=== PATIENT | female | born 1975 | race Hispanic/Latino ===

== ENCOUNTER 2019-05-24 10:16 | Emergency (ER) | payer OTHER ==
--- OUTSIDE RECORDS SUMMARY | 2019-05-24 10:26 | XMS REPORT | Summary of Care ---
:1975 Author Organization [facility] - [facility] Address [address] [place] [address] Care Team Providers Name Role Phone Carin Abernathy MD Primary Care Provider Leslee Diamond Unavailable Unavailable Ricardo Dyer MD Unavailable Encounter Details Date Type Department Care Team Description 04/20/2019 Orders Only [facility] Doctor Unassigned, No [address] [facility] [place] [address] [address] [place] [address] Allergies Active Allergy Reactions Severity Noted Date Comments Amoxicillin Hives Medium 05/30/2015 Diphenhydramine Hcl Swelling High 04/12/2017 Benzonatate Swelling High 11/04/2016 Tightness in throat, difficulty swallowing and breathing Codeine Itching Low 10/12/2017 Meperidine Hcl Hallucinations High 05/30/2015 Ziprasidone Hcl Hives High 05/30/2015 Lorazepam Swelling High 06/27/2017 Hard to swallow Meclizine Anaphylaxis High 10/18/2016 Tomato Other - See comments Low 04/03/2018 Tomato source reportedly causes excessive sneezing. But pt still eats it. documented as of this encounter (statuses as of 04/20/2019) Medications Medication Sig Dispensed Refills Start Date End Date Status FOLIC ACID ORAL Take by mouth 0 Active daily. MULTIVIT Take by mouth. 0 Active &MINERALS/FERROUS FUM (MULTI VITAMIN ORAL) loratadine 10 mg Take 1 tablet by 30 tablet 0 10/18/2016 Active tabletIndications: mouth daily. Viral URI METHYLCELLULOSE 0 Active (FIBER THERAPY MISC) DOCUSATE SODIUM Take by mouth. 0 Active (COLACE ORAL) vitamin C with derrell Take 1,000 mg by 0 Active hips (VITAMIN C) mouth daily. 1,000 mg tablet cholecalciferol, Take 1,000 Units 0 Active vitamin D3, (VITAMIN by mouth daily. D3) 1,000 unit tablet OMEPRAZOLE (PRILOSEC Take by mouth. 0 Active ORAL) coQ10, ubiquinol, 100 Take 1 capsule by 30 capsule 11 10/11/2017 Active mg CapIndications: mouth daily. Back muscle spasm, Right groin pain, Medication monitoring encounter, On statin therapy acetaminophen 650 mg Take 1 tablet by 90 tablet 5 11/04/2017 Active CR tabletIndications: mouth every 8 Peripheral (eight) hours as polyneuropathy, needed for Pain. Muscle pain, Arthralgia of multiple joints CRANBERRY FRUIT Take by mouth 0 Active EXTRACT (CRANBERRY daily. ORAL) CALCIUM ORAL Take by mouth 0 Active daily. DOCOSAHEXANOIC Take 1,000 mg by 0 Active ACID/EPA (FISH OIL mouth daily. ORAL) TENS Units (TENS 504) Use as directed 1 Device 0 02/06/2018 Active Monet cyanocobalamin 1 mL by 30 mL 0 04/11/2018 Active (VITAMIN B-12) 1,000 Intramuscular mcg/mL route every 2 injectionIndications: (two) weeks. B12 deficiency Nitrofurantoin&Nit. Take 1 capsule by 20 capsule 1 04/20/2018 Active Macrocryst 100 mg mouth twice daily capsule for 3 days as needed FERROUS SULFATE 325 TAKE ONE TABLET BY 90 tablet 5 05/08/2018 Active mg (65 mg iron) MOUTH THREE TIMES tabletIndications: DAILY WITH MEALS Acquired hemolytic anemia albuterol (PROAIR Inhale 2 Puffs 8.5 g 11 07/03/2018 Active HFA) 90 mcg/actuation every 6 (six) inhaler hours as needed for Wheezing or Shortness of Breath. meloxicam 15 mg Take 1 tablet by 30 tablet 0 2018 Active tablet mouth once daily as needed for Pain or Inflammation. REPLACES IBUPROFEN promethazine-dextrome Take 5 mL by mouth 120 mL 0 10/26/2018 Active thorphan 6.25-15 mg/5 4 (four) times mL syrupIndications: daily as needed Acute bacterial for Cough or Cold sinusitis, URI with symptoms. cough and congestion ROSUVASTATIN 10 mg TAKE 1 TABLET BY 90 tablet 1 11/06/2018 Active tabletIndications: MOUTH AT BEDTIME Mixed hyperlipidemia pregabalin 75 mg Take 1 capsule by 90 capsule 5 11/06/2018 Active capsuleIndications: mouth 3 (three) Peripheral times daily. polyneuropathy levothyroxine 50 mcg TAKE 1 TABLET BY 90 tablet 3 01/08/2019 Active tabletIndications: MOUTH ONCE DAILY Acquired IN THE MORNING hypothyroidism LUTEIN ORAL Take by mouth. 0 Active BIOTIN ORAL Take by mouth. 0 Active busPIRone 10 mg Take 2 tablets by 120 tablet 2 01/17/2019 Active tabletIndications: mouth 2 (two) Anxiety disorder due times daily. to medical condition citalopram 40 mg Take 1 tablet by 30 tablet 2 01/17/2019 Active tabletIndications: mouth daily. MDD (recurrent major depressive disorder) in remission, Anxiety disorder due to medical condition FLOVENT HFA 110 INHALE 2 PUFFS BY 1 Inhaler 11 02/06/2019 Active mcg/actuation MOUTH TWICE DAILY inhalerIndications: RINSE MOUTH Uncomplicated asthma, AFTER USE* unspecified asthma severity, unspecified whether persistent diltiazem (CARTIA XT) Take 1 capsule by 180 capsule 2 03/01/2019 Active 120 mg 24 hr mouth 2 (two) capsuleIndications: times daily. Essential hypertension, Sinus tachycardia, MADDOX (dyspnea on exertion), MJ (obstructive sleep apnea) losartan 50 mg Take 1 tablet by 180 tablet 2 03/01/2019 Active tabletIndications: mouth 2 (two) Essential times daily. hypertension, Sinus tachycardia, MADDOX (dyspnea on exertion), MJ (obstructive sleep apnea) cyanocobalamin 1,000 1 mL by 15 mL 1 03/28/2019 Active mcg/mL Intramuscular injectionIndications: route every 2 B12 deficiency (two) weeks. Indications: B12 deficiency fluticasone USE 2 SPRAY(S) IN 1 Bottle 5 03/26/2019 Active propionate 50 EACH NOSTRIL ONCE mcg/actuation nasal DAILY sprayIndications: Acute bacterial sinusitis, URI with cough and congestion cyclobenzaprine 5 mg Take one tab every 90 tablet 3 03/28/2019 Active tabletIndications: 8 hours as needed Tension headache amitriptyline 50 mg Take 1 tablet by 90 tablet 3 03/28/2019 Active tabletIndications: mouth at bedtime. Tension headache documented as of this encounter (statuses as of 04/20/2019) Active Problems Problem Noted Date Morbid obesity with body mass index of 40.0-49.9 01/29/2019 SI joint arthritis 10/06/2017 Umbilical hernia 10/06/2017 Renal cyst, right 10/06/2017 GERD (gastroesophageal reflux disease) 08/29/2017 Trochanteric bursitis of both hips 08/29/2017 Intellectual disability 06/09/2017 MJ (obstructive sleep apnea) 04/12/2017 Multiple thyroid nodules 04/04/2017 Tremor 04/04/2017 Twitching 04/04/2017 Asthma, mild persistent 02/15/2017 Fatty liver 12/17/2016 Hepatomegaly 12/17/2016 Obesity (BMI 30-39.9) 11/07/2016 Sinus tachycardia 09/27/2016 Dyslipidemia 08/17/2016 B12 deficiency 08/05/2016 Hemolytic anemia 03/04/2016 Abnormal uterine bleeding 02/16/2016 Submucous leiomyoma of uterus 02/16/2016 Encounter for blood transfusion 11/11/2015 History of tubal ligation 10/31/2015 Recurrent major depressive disorder, in remission 10/31/2015 Hypothyroid 10/31/2015 Essential hypertension, benign 10/31/2015 Contraception management 10/31/2015 Well woman exam 10/31/2015 Chest pain 06/08/2015 Peripheral neuropathy Enlarged heart PCOS (polycystic ovarian syndrome) Vitamin B12 deficiency documented as of this encounter (statuses as of 04/20/2019) Immunizations Name Administration Dates Next Due Heamophilus Influenza B 11/13/2015 Influenza Virus Vaccine Quad ID 18-64 YRS 06/15/2017 Influenza Virus Vaccine Quad IM 3+ YRS 06/30/2018 Influenza Virus Vaccine Quad IM Multi-dose 6+ MO 08/05/2016 Meningococcal B, OMV 03/07/2016 Meningococcal Polysaccharide (groups A, C, Y and W-135) 11/12/2015 conjugate vaccine (MCV4P) Pneumococcal 13 Conjugate, PCV13 (Prevnar 13) 03/07/2016 Pneumococcal Polysaccharide, PPSV23 (PNEUMOVAX) 04/01/2014 Tdap 10/31/2015 documented as of this encounter Social History Tobacco Use Types Packs/Day Years Used Date Former Smoker 0.5 25 10/20/1982 - 10/20/2007 Smokeless Tobacco: Never Used Comments: 10 years ago Alcohol Use Drinks/Week oz/Week Comments No 0 Standard drinks or equivalent 0.0 Sex Assigned at Date Recorded Not on file Job Start Date Occupation Industry Not on file Not on file Not on file Travel History Travel Start Travel End No recent travel history available. documented as of this encounter Last Filed Vital Signs Not on filedocumented in this encounter Plan of Treatment Date Type Specialty Care Team Description 04/20/2019 Office Visit Urology Stevie Gregorio, Recurrent UTI (Primary Dx) [address] [place] [address] 04/20/2019 Nurse Visit Obstetrics & Atiya Lo MD [address] [place], [place] [address]Gabe Tyrel [address] [place] [address] [facility] Gynecology Nurse, [facility] Women's Health 07/10/2019 Office Visit Family Medicine Carin Abernathy MD [address] [place] [phone] 07/27/2019 Office Visit Endocrinology Diabetes Mateo De La Torre & Metabolism [address] [place] [address] Tyrel [address] [place], [place] [phone] 08/31/2019 Office Visit Cardiology Ricardo Dyer MD [address] [place] [address] 10/08/2019 Office Visit Oncology Daphney Calderon NP [address] [place] [phone] 10/11/2019 Office Visit Neurology Kath Farr MD [facility]0 [place], [place] [address] 01/30/2020 Office Visit Obstetrics & Netta Rausch, Gynecology IRINEO-C [address] [place] [address] [phone] 04/23/2020 Office Visit Urology Corry Shen, [employer] [address] [address] [phone] Health Maintenance Due Date Last Done Comments INFLUENZA VACCINE 05/27/2019 06/30/2018, 06/15/2017, 08/05/2016 MAMMOGRAM 02/09/2020 02/08/2019, 02/01/2018 PAP SMEAR 01/30/2024 01/29/2019, 10/31/2015 DTaP,Tdap,and Td Vaccines (2 10/31/2025 10/31/2015 - Td) PNEUMOCOCCAL 0-64 YEARS Aged Out 03/07/2016, No longer eligible based COMBINED SERIES 04/01/2014 on patient's age to complete this topic documented as of this encounter Procedures Procedure Name Priority Date/Time Associated Diagnosis Comments NO SHOW OR MISSED Routine 04/20/2019 9:22 AM APPOINTMENT POLICY CDT ACKNOWLEDGEMENT documented in this encounter Results Not on filedocumented in this encounter Insurance Payer Benefit Plan / Subscriber ID Effective Phone Address Type Group Dates [place] [id number] 2017-Pre Medicare Adv HEALTHCARE - HEALTHCARE sent HMO MANAGED DUAL COMPLETE MEDICARE HMO [facility] [employer] [id number] 2017-Pre [address] [facility] sent [id number] [place] [address] [facility] MEDICAID OF xxxxxxxxx 2016-Pr [phone] Medicaid [place] esent [id number] [place] [address] documented as of this encounter Advance Directives Name Relationship Healthcare Agent Communication Relationship Laura Olivia Mother Primary healthcare agent Kei Lacey Father First alternate healthcare [phone] agent (Mobile)
--- OUTSIDE RECORDS SUMMARY | 2019-05-24 10:26 | XMS REPORT | Summary of Care ---
:1975 Author Organization [facility] Address [address] [place] [address] Care Team Providers Name Role Phone Carin Abernathy MD Primary Care Provider Leslee Diamond Unavailable Unavailable Ricardo Dyer MD Unavailable Reason for Visit Reason Comments IMMUNIZATION Encounter Details Date Type Department Care Team Description 04/20/2019 Nurse Visit [facility] Women's LoAtiya MD [address] [place] [address] DRGabe Tyrel [address] [place] [address] Surveillance for Healthcare- [place] Nurse, [facility] Women's [facility] Depo-Provera [address] [place] [address], [facility] (Primary [address] Dx) [place] [address] Allergies Active Allergy Reactions Severity Noted Date [...] Active tabletIndications: mouth at bedtime. Tension headache Hospital, Clinic, or Other Ordered Dose Route Frequency Start Date End Date Status Facility Administered Medication medroxyPROGESTERone 150 mg IM ONCE 04/20/2019 04/20/2019 Ended (DEPO-PROVERA) injection 150 mg documented as of this encounter (statuses as [...] of this encounter Last Filed Vital Signs Vital Sign Reading Time Taken Comments Blood Pressure - - Pulse - - Temperature 37 C (98.6 F) 04/20/2019 9:55 AM CDT Respiratory Rate - - Oxygen Saturation - - Inhaled Oxygen Concentration - - Weight 109.8 kg (242 lb) 04/20/2019 9:55 AM CDT Height - - Body Mass Index 39.06 04/20/2019 9:07 AM CDT documented in this encounter Plan of Treatment Date Type Specialty Care Team Description 07/10/2019 Office Visit Family Medicine Carin Abernathy MD [address] [facility] [place] [place] [address] [phone] 07/27/2019 Office Visit Endocrinology Diabetes & Mateo De La Torre Metabolism [address] [place] [address] Dr Sarah [address] [place] [address] [phone] 08/31/2019 Office Visit Cardiology Ricardo Dyer MD [address] SAR[address] [place] [phone] 10/08/2019 Office Visit Oncology Daphney Calderon, [employer] [address] [place] [address] [phone] 10/11/2019 Office Visit Neurology Kath Farr MD [address] [place] [address] [phone] 01/30/2020 Office Visit Obstetrics & Gynecology Netta Rausch PA-C [address] [facility] [address] [place] [address] [phone] 04/23/2020 Office Visit Urology Corry Shen FNP [address] [facility] [address] [place] [address] [phone] Health Maintenance Due Date Last Done Comments INFLUENZA VACCINE 05/27/2019 06/30/2018, 06/15/2017, 08/05/2016 MAMMOGRAM 02/09/2020 02/08/2019, 02/01/2018 PAP SMEAR 01/30/2024 01/29/2019, 10/31/2015 DTaP,Tdap,and Td Vaccines (2 10/31/2025 10/31/2015 - Td) PNEUMOCOCCAL 0-64 YEARS Aged Out 03/07/2016, No longer eligible based COMBINED SERIES 04/01/2014 on patient's age to complete this topic documented as of this encounter Procedures Procedure Name Priority Date/Time Associated Diagnosis Comments POCT TEST Routine 04/20/2019 Surveillance for Results for this Depo-Provera procedure are in the contraception results section. documented in this encounter Results POCT TEST (04/20/2019) POCT PREG Negative On board controls acceptable Yes with C Line POCT PREG LOT # POCT PREG TEST DATE Specimen Urine - URINE, CLEAN CATCH documented in this encounter Visit Diagnoses Diagnosis Surveillance for Depo-Provera contraception - Primary Surveillance of other previously prescribed contraceptive method documented in this encounter Administered Medications Medication Order MAR Action Action Date Dose Rate Site medroxyPROGESTERone Given 04/20/2019 10:11 150 mg Left Deltoid-IM (DEPO-PROVERA) injection 150 AM CDT mg 150 mg, Intramuscular, ONCE, 1 dose, Tue04/20/19 at 1115, Routine documented in this encounter Insurance Payer Benefit Plan / Subscriber ID Effective Phone Address Type Group Dates [facility] [id number] 2017-Pres Medicare HEALTHCARE - HEALTHCARE ent Adv HMO MANAGED DUAL COMPLETE MEDICARE HMO [place] MEDICAID OF xxxxxxxxx 2016-Pre [phone] Medicaid [place] sent [id number] [place] [address] (Home) [address] [phone] [place], [place] (Work) [address] documented as of this encounter Advance Directives Name Relationship Healthcare Agent Communication Relationship Chaparrochristiano Corwin Mother Primary healthcare agent Kei Rahman Father First alternate healthcare [phone] agent (Mobile)
--- OUTSIDE RECORDS SUMMARY | 2019-05-24 10:26 | XMS REPORT | Summary of Care ---
:1975 Author Organization [facility] - Health Address [address] [place] [address] Care Team Providers Name Role Phone Carin Abernathy MD Primary Care Provider Leslee Diamond Unavailable Unavailable Ricardo Dyer MD Unavailable Encounter Details Date Type Department Care Team Description 04/20/2019 Orders Only [facility] Doctor Unassigned, No 301 [facility] Name [address] [address] Allergies Active Allergy Reactions Severity Noted Date [...] Date Type Specialty Care Team Description 04/20/2019 Nurse Visit Obstetrics & Lo, Atiya Winslow MD [address] [place] [address] [address] [phone] Surveillance for Gynecology Nurse, [facility] Women's Health Depo-Provera contraception (Primary Dx) 07/10/2019 Office Visit Family Medicine Carin Abernathy MD [address] [place] [phone] 07/27/2019 Office Visit Endocrinology Diabetes Mateo De La Torre H & Metabolism [address] [place] [phone] 08/31/2019 Office Visit Cardiology Ricardo Dyer MD [address] [place] [address] [address] 10/08/2019 Office Visit Oncology Daphney Calderon, LAST [address] [place] [address] [phone] 10/11/2019 Office Visit Neurology Kath Farr MD [address] [place], [place] [address] 01/30/2020 Office Visit Obstetrics & Netta Rausch, Gynecology CLAUDIA [address] [place] [phone] 04/23/2020 Office Visit Urology Corry Shen FNP [address] [address] [phone] Health Maintenance Due Date Last Done Comments INFLUENZA VACCINE 05/27/2019 06/30/2018, 06/15/2017, 08/05/2016 MAMMOGRAM 02/09/2020 02/08/2019, 02/01/2018 PAP SMEAR 01/30/2024 01/29/2019, 10/31/2015 DTaP,Tdap,and Td Vaccines (2 10/31/2025 10/31/2015 - Td) PNEUMOCOCCAL 0-64 YEARS Aged Out 03/07/2016, No longer eligible based COMBINED SERIES 04/01/2014 on patient's age to complete this topic documented as of this encounter Procedures Procedure Name Priority Date/Time Associated Diagnosis Comments [facility] PATIENT FINANCIAL Routine 04/20/2019 9:23 AM POLICY CDT NO SHOW OR MISSED Routine 04/20/2019 9:22 AM APPOINTMENT POLICY CDT ACKNOWLEDGEMENT documented in this encounter Results Not on filedocumented in this encounter Insurance Payer Benefit Plan / Subscriber ID Effective Phone Address Type Group Dates [facility] [id number] 2017-Pre Medicare Adv HEALTHCARE - HEALTHCARE sent HMO MANAGED DUAL COMPLETE MEDICARE HMO [facility] MEDICAID OF xxxxxxxxx 2016-Pr [phone] Medicaid [place] esent [id number] [place] [address] [facility] [employer] [id number] 2017-Pre [address] BOX [facility] sent [id number] [place] [address] documented as of this encounter Advance Directives Name Relationship Healthcare Agent Communication Relationship Chaparrochristiano Corwin Mother Primary healthcare agent Kei Lacey Father First alternate healthcare [phone] agent (Mobile)
--- OUTSIDE RECORDS SUMMARY | 2019-05-24 10:26 | XMS REPORT ---
:1975 [facility] Address [address] [place] [address] Dr. Sarah[address] [place] [address] Care Team Providers Name Role Phone Unavailable Unavailable Unavailable Problems This patient has no known problems. Allergies, Adverse Reactions, Alerts This patient has no known allergies or adverse reactions. Medications This patient has no known medications.
--- OUTSIDE RECORDS SUMMARY | 2019-05-24 10:27 | XMS REPORT | Summary of Care ---
:1975 Author Organization [facility] Address [address] [place] [address] Care Team Providers Name Role Phone Carin Abernathy MD Primary Care Provider Leslee Diamond Unavailable Unavailable Ricardo Dyer MD Unavailable Reason for Visit Reason Comments Follow-up Encounter Details Date Type Department Care Team Description 04/20/2019 Office Visit [facility] Urology- Stevie Gregorio, Recurrent UTI Sarthak HOLLINS (Primary Dx) [address] [facility] [address] [facility] [address] [place] [phone] Allergies Active Allergy Reactions Severity Noted Date [...] as of this encounter (statuses as of 04/21/2019) Medications Medication Sig Dispensed Refills Start Date [...] as of this encounter (statuses as of 04/21/2019) Active Problems Problem Noted Date Morbid obesity [...] as of this encounter (statuses as of 04/21/2019) Immunizations Name Administration Dates Next Due Heamophilus [...] Sign Reading Time Taken Comments Blood Pressure 126/80 04/20/2019 9:07 AM CDT Pulse 80 04/20/2019 9:07 AM CDT Temperature 36.8 C (98.3 F) 04/20/2019 9:07 AM CDT Respiratory Rate 18 04/20/2019 9:07 AM CDT Oxygen Saturation - - Inhaled Oxygen Concentration - - Weight 109.8 kg (242 lb) 04/20/2019 9:07 AM CDT Height 167.6 cm (5' 6") 04/20/2019 9:07 AM CDT Body Mass Index 39.06 04/20/2019 9:07 AM CDT documented in this encounter Progress Notes Stevie Gregorio MD - 04/20/2019 10:00 AM CDT Visit Type: Clinic Note / History and Physical Referred by: established Chief Complaint: uti HPI Patient with recurrent UTis treated with prn macrobid. Doing well today and reports no UTI in past year. No other problems. Histories Past Medical History: Diagnosis Date Abnormal uterine bleeding 02/16/2016 Anemia multifactorial inlcuding Hemolytic anemia, followed by Hematology Asthmatic bronchitis, moderate persistent, uncomplicated 02/15/2017 Enlarged heart Fatty liver 12/17/2016 GERD (gastroesophageal reflux disease) 08/29/2017 HTN (hypertension) Hypothyroidism Intellectual disability 06/09/2017 Iron deficiency Major depressive disorder MJ (obstructive sleep apnea) 04/12/2017 PCOS (polycystic ovarian syndrome) 2016 Peripheral neuropathy Renal cyst, right 10/06/2017 SI joint arthritis 10/06/2017 Submucous leiomyoma of uterus 02/16/2016 Transfusion history 2011 due to anemia Umbilical hernia 10/06/2017 Vitamin B12 deficiency Past Surgical History: Procedure Laterality Date CHOLECYSTECTOMY 1996 ENDOMETRIAL BIOPSY 2016 LIVER BIOPSY 2016 steatohepatitis RADICAL HYSTERECTOMY TUBAL LIGATION 1998 Family History Problem Relation Age of Onset Diabetes Father High cholesterol Father Hypertension Father Hypertension Mother Other - see comments Mother Nephrotic change / kidney disease Breast Cancer Maternal Aunt Dx at 46 her daughter dx at 42 Arthritis NoFHx Asthma NoFHx defects NoFHx Colon Cancer NoFHx Ovarian Cancer NoFHx Uterine Cancer NoFHx Cancer NoFHx Depression NoFHx Genetic NoFHx Heart NoFHx Mental retardation NoFHx Neurological NoFHx Osteoporosis NoFHx Psychiatry NoFHx Lipids NoFHx Social History Socioeconomic History Marital status: Spouse name: Common Law spouse Number of children: 1 Years of education: 12 Highest education level: Not on file Occupational History Occupation: Learning Disability Social Needs Financial resource strain: Not on file Food insecurity: Worry: Not on file Inability: Not on file Transportation needs: Medical: Not on file Non-medical: Not on file Tobacco Use Smoking status: Former Smoker Packs/day: 0.50 Years: 25.00 Pack years: 12.50 Start date: 10/20/1982 Last attempt to quit: 10/20/2007 Years since quittin.5 Smokeless tobacco: Never Used Tobacco comment: 10 years ago Substance and Sexual Activity Alcohol use: No Alcohol/week: 0.0 oz Drug use: No Sexual activity: Yes Partners: Male control/protection: Surgical Lifestyle Physical activity: Days per week: Not on file Minutes per session: Not on file Stress: Not on file Relationships Social connections: Talks on phone: Not on file Gets together: Not on file Attends restorationism service: Not on file Active member of club or organization: Not on file Attends meetings of clubs or organizations: Not on file Relationship status: Not on file Intimate partner violence: Fear of current or ex partner: Not on file Emotionally abused: Not on file Physically abused: Not on file Forced sexual activity: Not on file Other Topics Concern Service Not Asked Blood Transfusions Not Asked Caffeine Concern Not Asked Occupational Exposure Not Asked Hobby Hazards Not Asked Sleep Concern Not Asked Stress Concern Not Asked Weight Concern Not Asked Special Diet Not Asked Back Care Not Asked Exercise Not Asked Bike Helmet Not Asked Seat Belt Yes Self-Exams Not Asked Social History Narrative No physical or domestic abuse Synagogue Preference: [employer] No pets Common law spouse, Mr. Bon Jha. Review of Systems Physical Exam BP 126/80 (BP Location: Right arm, Patient Position: Sitting, BP CUFF SIZE: Adult Large) | Pulse 80 | Temp 36.8 C (98.3 F) (Oral) | Resp 18 | Ht 5' 6 " (1.676 m) | Wt 242 lb (109.8 kg) | BMI 39.06 kg/m Laboratory I have reviewed the patient's labs. All labs are within normal limits. Radiology No new Radiology Procedure Note Assessment/Plan Recurrent UTIs but doing well and asymptomatic. Rx for macrobid to take prn RTC one year Surgical Intervention Not applicable. This visit involved counseling and coordination of care that comprised more than 50% of the visit time. I spent 15 minute(s) total time with the patient. Of that time, 5 minute(s) was spent on history and exam, and 10 minute(s) was spent counseling the patient regarding risks and benefits of treatment, treatment options and prevention. Beverly Flannery RN - 04/20/2019 10:00 AM CDTYhuntercharbel Rahman is a 43 year old female comes to clinic independent in ambulation for recurrent uti. Pt comes accompanied by spouse . Pt in NAD w/ pain reported 0/10. Pt preferred language is Egyptian. Pt. denies fall in last 12 months. Allergies and medications reviewed and updated. Denies hematuria and dysuria documented in this encounter Plan of Treatment Date Type Specialty Care Team Description 07/10/2019 Office Visit Family Medicine Carin Abernathy MD [address] [place] [address] [facility] [place] [phone] 07/27/2019 Office Visit Endocrinology [facility] [address] [place] [address] Dr Sarah [address] [place], [place] [phone] 08/31/2019 Office Visit Cardiology Ricardo Dyer MD [address] [facility] [address] [place] [phone] 10/08/2019 Office Visit Oncology Daphney Calderon, LAST [address] [place] [address] [phone] 10/11/2019 Office Visit Neurology Kath Farr MD [address] [place] [address] [phone] 01/30/2020 Office Visit Obstetrics & Gynecology Netta Rausch PA-C [address] [facility] [address] [place] [phone] 04/23/2020 Office Visit Urology Corry Shen FNP [address] [facility] [address] [place], [place] [id number] Name Type Priority Associated Diagnoses Order Schedule URINE CULTURE LAB Routine Recurrent UTI Ordered: 04/20/2019 Health Maintenance Due Date Last Done Comments INFLUENZA VACCINE 05/27/2019 06/30/2018, 06/15/2017, 08/05/2016 MAMMOGRAM 02/09/2020 02/08/2019, 02/01/2018 PAP SMEAR 01/30/2024 01/29/2019, 10/31/2015 DTaP,Tdap,and Td Vaccines (2 10/31/2025 10/31/2015 - Td) PNEUMOCOCCAL 0-64 YEARS Aged Out 03/07/2016, No longer eligible based COMBINED SERIES 04/01/2014 on patient's age to complete this topic documented as of this encounter Procedures Procedure Name Priority Date/Time Associated Comments Diagnosis POCT URINALYSIS AUTO Routine 04/20/2019 9:20 AM Recurrent UTI Results for this CDT procedure are in the results section. documented in this encounter Results POCT URINALYSIS, INSTRUMENT (04/20/2019 9:20 AM CDT) POCT U SP GRAV 1.010 1.005 - 1.025 mg/dl POCT PH U 7.0 5 - 8 mg/dl POCT U LEUK EST small Negative - Negative POCT U NIT Negative Negative - Negative POCT U PROT 30 Negative - Negative POCT U GLU Negative Negative - Negative POCT U KETONE Negative Negative - Negative POCT U UROBILI 0.2 0.2 - 1 mg/dl POCT U BILI Negative Negative - Negative POCT U BLD Trace Negative - Negative POCT U COLOR yellow POCT U APPEAR cloudy Specimen Urine - URINE, CLEAN CATCH documented in this encounter Visit Diagnoses Diagnosis Recurrent UTI - Primary Urinary tract infection, site not specified documented in this encounter Insurance Payer Benefit Plan / Subscriber ID Effective Phone Address Type Group Dates [facility] [id number] 2017-Pres Medicare HEALTHCARE - HEALTHCARE ent Adv HMO MANAGED DUAL COMPLETE MEDICARE HMO [place] MEDICAID OF xxxxxxxxx 2016-Pre [phone] Medicaid [place] sent [id number] [place] [address] (Home) [address] [phone] [place], [place] (Work) [id number] documented as of this encounter Advance Directives Name Relationship Healthcare Agent Communication Relationship Laura Olivia Mother Primary healthcare agent Kei Rahman Father First alternate healthcare [phone] agent (Mobile)
--- OUTSIDE RECORDS SUMMARY | 2019-05-24 10:27 | XMS REPORT | Clinical Summary ---
:1975 Author Organization [facility] Address [address] [place] [address] Care Team Providers Name Role Phone Carin Abernathy MD Primary Care Provider Leslee Diamond Unavailable Unavailable Ricardo Dyer MD Unavailable Allergies Active Allergy Reactions Severity Noted Date [...] excessive sneezing. But pt still eats it. Medications Medication Sig Dispensed Refills Start Date [...] BIOTIN ORAL Take by mouth. 0 Active FLOVENT HFA 110 INHALE 2 PUFFS BY [...] Active tabletIndications: mouth at bedtime. Tension headache busPIRone 10 mg Take 2 tablets by 120 tablet 3 04/25/2019 Active tabletIndications: mouth 2 (two) Anxiety disorder due times daily. to medical condition citalopram 40 mg Take 1 tablet by 30 tablet 3 04/25/2019 Active tabletIndications: mouth daily. MDD (recurrent major depressive disorder) in remission, Anxiety disorder due to medical condition Hospital, Clinic, or Ordered Dose Route Frequency Start Date End Date Status Other Facility Administered Medication lidocaine 1 % + 10 mL Intradermal ONCE 03/28/2019 Ended bupivacaine 0.25 % 1:1 9 injection triamcinolone acetonide 40 mg IM ONCE 03/28/2019 Ended (KENALOG) injection 40 mg 9 medroxyPROGESTERone 150 mg IM ONCE 04/20/2019 Ended (DEPO-PROVERA) injection 9 150 mg Active Problems Problem Noted Date Morbid obesity [...] PCOS (polycystic ovarian syndrome) Vitamin B12 deficiency Encounters Date Type Specialty Care Team Description 04/20/2019 Nurse Visit Obstetrics & Atiya Lo, Surveillance for Gynecology Depo-Provera Nurse, Adc contraception (Primary Women's Health Dx) 04/20/2019 Office Visit Urology Stevie Gregorio Recurrent UTI (Primary MD Srikanth Dx) 04/20/2019 Orders Only Doctor Unassigned, Nazlini 04/11/2019 Telephone Cardiology Ricardo Dyer Results (echo) MD Kaley 04/03/2019 Laboratory Only Cardiology Nohemi Peña, Essential hypertension ; Sinus tachycardia; Tech, Adc Cardio MADDOX (dyspnea on exertion); Fac MJ (obstructive sleep apnea) 1, Adc Cardio Fac Room 03/28/2019 Office Visit Neurology Kath Farr MD Tension headache ( Primary Dx); Meralgia paresthetica, unspecified laterality; MJ (obstructive sleep apnea); Essential tremor; Orofacial dyskinesia; Myofascial pain 03/26/2019 Refill Family Medicine Josemanuel, Refill Request Carin Adams MD 03/25/2019 Refill Oncology Mari Yancy Milton, Refill Request 03/12/2019 Orders Only Doctor Unassigned, Nazlini 03/01/2019 Office Visit Cardiology Dyer, Sendil Essential hypertension ( Primary Dx); MD Kaley Sinus tachycardia; MADDOX (dyspnea on exertion); MJ (obstructive sleep apnea) 02/27/2019 Refill Cardiology Dyer, Sendil Refill Request MD Kaley 02/23/2019 Telephone Obstetrics & Atiya Lo, Notification Gynecology 02/12/2019 Telephone Family Calvin Abernathy, Notification Carin Adams MD 02/08/2019 Hospital Encounter Radiology Atiya Lo MD 02/08/2019 Orders Only Doctor Unassigned, Nazlini 02/01/2019 Office Visit Orthopedic Surgery Tye Sanchez, Injury of triangular fibrocartilage complex (TFCC) of left wrist, subsequent encounter ( Primary Dx); PAC Trochanteric bursitis, right hip 01/31/2019 Refill Pulmonary Disease Rosalind Morales, Refill Request 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/2019 Office Visit Obstetrics & Atiya Lo, Well woman exam ( Primary Dx); Gynecology Breast cancer screening; Surveillance for Depo-Provera contraception; Colon cancer screening; Cervical polyp 01/24/2019 Telephone Family Calvin Abernathy, Refill Request Carin Adams MD 01/24/2019 Telephone Family Medicine Josemanuel, Rx Concern/Question Carin Adams MD 01/23/2019 Refill Cardiology Dyer, Sendil Refill Request MD Kaley from Last 3 Months Immunizations Name Administration Dates Next Due Heamophilus [...] Pneumococcal Polysaccharide, PPSV23 (PNEUMOVAX) 04/01/2014 Tdap 10/31/2015 Family History Medical History Relation Name Comments Diabetes Father High cholesterol Father Hypertension Father Breast Cancer Maternal Aunt Dx at 46 her daughter dx at 42 Hypertension Mother Other - see comments Mother Nephrotic change / kidney disease Arthritis NoFHx Asthma NoFHx defects NoFHx Cancer NoFHx Colon Cancer NoFHx Depression NoFHx Genetic NoFHx Heart NoFHx Lipids NoFHx Mental retardation NoFHx Neurological NoFHx Osteoporosis NoFHx Ovarian Cancer NoFHx Psychiatry NoFHx Uterine Cancer NoFHx Relation Name Status Comments Father Father Maternal Aunt Mother Social History Tobacco Use Types Packs/Day Years Used Date Former Smoker 0.5 25 10/20/1982 - 10/20/2007 Smokeless Tobacco: Never Used Tobacco Cessation: Counseling Given: Yes Comments: 10 years ago Alcohol Use Drinks/Week oz/Week Comments No 0 Standard drinks or equivalent 0.0 Sex Assigned at Date Recorded Not on file Job Start Date Occupation Industry Not on file Not on file Not on file Travel History Travel Start Travel End No recent travel history available. Last Filed Vital Signs Vital Sign Reading Time Taken Comments Blood Pressure 117/61 04/25/2019 10:58 AM CDT Pulse 100 04/25/2019 10:58 AM CDT Temperature 37 C (98.6 F) 04/20/2019 9:55 AM CDT Respiratory Rate 18 04/25/2019 10:58 AM CDT Oxygen Saturation 96% 04/25/2019 10:58 AM CDT Inhaled Oxygen Concentration - - Weight 108.4 kg (239 lb) 04/25/2019 10:58 AM CDT Height 167.6 cm (5' 6") 04/25/2019 10:58 AM CDT Body Mass Index 38.58 04/25/2019 10:58 AM CDT Plan of Treatment Date Type Specialty Care Team Description 07/10/2019 Office Visit Family Medicine Carin Abernathy MD [address] [place] [phone] 07/27/2019 Office Visit Endocrinology Diabetes & Mateo De La Torre Metabolism [address] [place] [address] [place] [address] [phone] 08/31/2019 Office Visit Cardiology Ricardo Dyer MD [address] [facility] [address] [place] [address] 10/08/2019 Office Visit Oncology Daphney Calderon, MANAGER OF IT [address] [place], [place] [phone] 10/11/2019 Office Visit Neurology Kath Farr MD [address] [place], [place] [address]993 01/30/2020 Office Visit Obstetrics & Gynecology Netta [facility]ch PA-C [facility] [address] [place] [address] 04/23/2020 Office Visit Urology Corry Shen FNP [address] [facility] [address] [place], [place] [phone] Health Maintenance Due Date Last Done Comments INFLUENZA VACCINE 05/27/2019 06/30/2018, 06/15/2017, 08/05/2016 MAMMOGRAM 02/09/2020 02/08/2019, 02/01/2018 PAP SMEAR 01/30/2024 01/29/2019, 10/31/2015 DTaP,Tdap,and Td Vaccines (2 10/31/2025 10/31/2015 - Td) PNEUMOCOCCAL 0-64 YEARS Aged Out 03/07/2016, No longer eligible based COMBINED SERIES 04/01/2014 on patient's age to complete this topic Procedures Procedure Name Priority Date/Time Associated Diagnosis Comments [facility] PATIENT FINANCIAL Routine 04/20/2019 9:23 POLICY AM CDT NO SHOW OR MISSED Routine 04/20/2019 9:22 APPOINTMENT POLICY AM CDT ACKNOWLEDGEMENT POCT URINALYSIS AUTO Routine 04/20/2019 9:20 Recurrent UTI Results for this AM CDT procedure are in the results section. POCT TEST Routine 04/20/2019 Surveillance for Results for this Depo-Provera procedure are in contraception the results section. ECHO ROUTINE W/DOPPLER Routine 04/03/2019 9:05 Essential Results for this COLOR AM CDT hypertension procedure are in Sinus tachycardia the results MADDOX (dyspnea on section. exertion) MJ (obstructive sleep apnea) EXTERNAL PROVIDER Routine 03/12/2019 12:01 RECORDS AM CDT BI SCREENING Routine 02/08/2019 10:28 Breast cancer Results for this TOMOSYNTHESIS BILATERAL AM CDT screening procedure are in the results section. NOTICE OF PRIVACY Routine 02/08/2019 9:30 PRACTICES AM CDT CONSENT/REFUSAL FOR Routine 02/08/2019 9:29 DIAGNOSIS AND TREATMENT AM CDT ASSIGNMENT OF BENEFITS Routine 02/08/2019 9:29 AM CDT MEDICATION Routine 02/08/2019 12:01 CORRESPONDENCE AM CDT SURGICAL PATHOLOGY EXAM Routine 01/29/2019 11:32 Well woman exam Results for this AM CDT procedure are in the results section. LAB ONLY PAP Routine 01/29/2019 11:31 Well woman exam Results for this SMEAR-LIQUID BASED AM CDT procedure are in the results section. HIGH RISK HPV-THIN PREP Routine 01/29/2019 11:31 Well woman exam Results for this AM CDT procedure are in the results section. PAP SMEAR-LIQUID Routine 01/29/2019 11:31 Well woman exam Results for this BASED-CP AM CDT procedure are in the results section. from Last 3 Months Results [facility] PATIENT FINANCIAL POLICY (04/20/2019 9:23 AM CDT) Specimen Performing Organization Address City/State/Zipcode Phone Number [facility] NO SHOW OR MISSED APPOINTMENT POLICY ACKNOWLEDGEMENT (04/20/2019 9:22 AM CDT) Specimen Performing Organization Address City/State/Zipcode Phone Number [facility] POCT URINALYSIS, INSTRUMENT (04/20/2019 9:20 AM CDT) [...] cloudy Specimen Urine - URINE, CLEAN CATCH POCT TEST (04/20/2019) POCT PREG Negative On board controls acceptable Yes with C Line POCT PREG LOT # POCT PREG TEST DATE Specimen Urine - URINE, CLEAN CATCH ECHO ROUTINE W/DOPPLER COLOR Preferred Location: [facility] (2018 9:05 AM CDT) Specimen Performing Organization Address [facility] Phone Number ECHO EXTERNAL PROVIDER RECORDS (03/12/2019 12:01 AM CDT) Specimen Performing Organization Address [facility] Phone Number [facility] BI SCREENING TOMOSYNTHESIS BILATERAL (02/08/2019 10:28 AM CDT) Specimen Narrative Performed At Examination: PACS BI SCREENING TOMOSYNTHESIS BILATERAL History: Patient is 43 year old and is seen for:Screening. Family medical history includes breast cancer in maternal aunt. No relevant hormone history has been documented for this patient. Surgical history includes hysterectomy. No relevant medical history has been documented for this patient. Computer-aided detection (CAD) utilized. Comparisons: 02/01/2018 BI SCREENING TOMOSYNTHESIS BILATERAL (No Change) Findings: The breasts have scattered areas of fibroglandular density. There is no evidence of suspicious masses, calcifications, or other abnormal findings. Impression: No mammographic evidence of malignancy. Recommendation: Annual mammographic follow-up BI-RADS Category: Overall: 1 - Negative Performing Organization Address [facility] Phone Number PACS NOTICE OF PRIVACY PRACTICES (02/08/2019 9:30 AM CDT) Specimen Performing Organization Address [facility] Phone Number [facility] CONSENT/REFUSAL FOR DIAGNOSIS AND TREATMENT (02/08/2019 9:29 AM CDT) Specimen Performing Organization Address [facility] Phone Number [facility] ASSIGNMENT OF BENEFITS (02/08/2019 9:29 AM CDT) Specimen Performing Organization Address [facility] Phone Number [facility] MEDICATION CORRESPONDENCE (02/08/2019 12:01 AM CDT) Specimen Performing Organization Address [facility] Phone Number [facility] SURGICAL PATHOLOGY EXAM (01/29/2019 11:32 AM CDT) Case Report Surgical Pathology Case: [id number] [facility] Authorizing Provider:Atiya Lo MDCollected: 01/29/2019 1132 SERVICES [facility]'sReceived: 01/29/[address] [facility] Pathologist: Merry Bedolla MD Specimen:ENDOCERVICAL, Polyp Final Diagnosis [facility] Electronically signed A. ENDOCERVIX, POLYPECTOMY: SERVICES by Merry Bedolla - BENIGN ENDOCERVICAL POLYP MD Anne on 01/31/2019 at 1:58 PM I have personally reviewed all specimens/slides and agree with all statements made by residents, fellows or pathologist assistants whose name(s) may appear on this report. Final Diagnosis [facility] Comment SERVICES Pathologist professional component performed at: [facility] Laboratory Services - [address] [address] Clinical endocervical polyp [facility] Information SERVICES Gross Description Specimen A is received in formalin labelled with the patient s name, UH number "endocervical polyp" and consists of a single maroon irregular polypoid soft tissue (2.5 x 0.9 x 0.6 cm). The specimen is bisected and entirely submitted in A1. [facility] SERVICES IRINEO Lassiter (ASCP)cm Embedded Images [facility] SERVICES Specimen Tissue - ENDOCERVICAL Performing Organization Address City/State/Zipcode Phone Number [facility] SERVICES CLIA: [id number], [address] [place] [address] [facility] PAP Smear-Liquid Based (01/29/2019 11:31 AM CDT) Specimen Swab - CERVIX Performing Organization Address City/[facility]/Zipcode Phone Number [facility] SERVICES CLIA: [id number], [address] [place] [address] [facility] HIGH RISK HPV-THIN PREP (01/29/2019 11:31 AM CDT) High Risk HPV Negative Negative [facility] SERVICES Specimen Swab - CERVIX Performing Organization Address City/[facility]/Zipcode Phone Number [facility] SERVICES CLIA: [id number], [address] [place] [address] [facility] LAB ONLY PAP SMEAR-LIQUID BASED (01/29/2019 11:31 AM CDT) Case Report Gynecologic Cytology Case: [id number] [facility] Authorizing Provider:Atiya Lo MDCollected: 01/29/2019 1131 SERVICES [facility] Women'sReceived: 01/30/[address] [facility] First Screen:Bruce Maldonado Specimen:Liquid Based Pap Preparation, CERVIX Clinical Information hx abnormal uterine [facility] bleeding and hx of SERVICES PCOS Specimen Adequacy Satisfactory for [facility] Evaluation(Endocervic SERVICES al/Transformation Zone Component Present) Interpretation Negative for [facility] Electronically intraepithelial SERVICES signed by ifrah Maldonado or malignancy Bruce Chahal on 02/09/2019 at 1:59 PM LMP LMP (specify date in [facility] Comments)Comment: SERVICES approx 12/22/2018 Educational Note Cervical cytology [facility] (Pap Test) is a SERVICES screening test primarily for squamous cancers and precursors. The test has an inherent, but low, probability of false-negative and false-positive results. Regular sampling and follow-up of unexplained clinical signs and symptoms are recommended to minimize the effect of false negative results. Your patient should be reminded to consult you immediately if she experiences any unexplained clinical signs and symptoms, regardless of any Pap Test result. Embedded Images [facility] SERVICES Specimen Swab - CERVIX Performing Organization Address City/State/Zipcode Phone Number [facility] SERVICES CLIA: [id number], [address] [place] [address] [facility] from Last 3 Months Insurance Payer Benefit Plan / Subscriber ID Effective Phone Address Type Group Dates [facility] [id number] 2017-Pre Medicare Adv HEALTHCARE - HEALTHCARE sent HMO MANAGED DUAL COMPLETE MEDICARE HMO TMHP MEDICAID OF xxxxxxxxx 2016-Pr [phone] Medicaid [place] esent [id number] [place] [address] [employer] [id number] 2017-Pre [address] [facility] sent [id number] [place] [address] (Home) [address] [phone] [place], [place] (Work) [address] Advance Directives Name Relationship Healthcare Agent Communication Relationship Laura Olviia Mother Primary healthcare agent Kei Rahman Father First [facility] healthcare [phone] agent (Mobile)
--- OUTSIDE RECORDS SUMMARY | 2019-05-24 10:27 | XMS REPORT | Summary of Care ---
:1975 Author Organization [facility] Address [address] [place] [address] Care Team Providers Name Role Phone Carin Abernathy MD Primary Care Provider Leslee Diamond Unavailable Unavailable Ricardo Dyer MD Unavailable Reason for Visit Reason Comments Follow-up Encounter Details Date Type Department Care Team Description 04/20/2019 Office Visit [facility] Urology- Stevie Gregorio, Recurrent UTI Sarthak HOLLINS (Primary Dx) [facility] [address] [facility] [address] [place] [phone] Allergies Active Allergy Reactions Severity Noted Date [...] file Gets together: Not on file Attends latter-day service: Not on file Active member of [...] History Narrative No physical or domestic abuse Jehovah'S Witness Preference: Sikh No pets Common law spouse, Mr. Bon [...] pain reported 0/10. Pt preferred language is Norwegian. Pt. denies fall in last 12 months. Allergies and medications reviewed and updated. Denies hematuria and dysuria documented in this encounter Plan of Treatment Date Type Specialty Care Team Description 07/10/2019 Office Visit Family Medicine Carin Abernathy MD [address] [place] [address] [facility] [place] [phone] 07/27/2019 Office Visit Endocrinology Diabetes & Mateo De La [facility]re Metabolism [address] [place] [address] Dr Sarah [address] [place], [place] [address] 08/31/2019 Office Visit Cardiology Ricardo Dyer MD [address] [facility] [address] [place] [phone] 10/08/2019 Office Visit Oncology Daphney Calderon, LAST [address] [place] [address] [phone] 10/11/2019 Office Visit Neurology Kath Farr MD [address] [place] [address] [phone] 01/30/2020 Office Visit Obstetrics & Gynecology Netta Rausch PA-C 146 [facility] 208 [place] [phone] 04/23/2020 Office Visit Urology Corry Shen FNP 146 [facility] 102 [place], [place] [address] Name Type Priority Associated Diagnoses Order Schedule [...] ID Effective Phone Address Type Group Dates [facility] [id number] 2017-Pres Medicare HEALTHCARE - HEALTHCARE ent Adv HMO MANAGED DUAL COMPLETE MEDICARE HMO TMHP MEDICAID OF xxxxxxxxx 2016-Pre [phone] Medicaid [place] sent [id number] [place] [address] (Home) [address] [phone] [place], [place] (Work) [phone] documented as of this encounter Advance Directives Name Relationship Healthcare Agent Communication Relationship Laura Olivia Mother Primary healthcare agent Kei Rahman Father First alternate healthcare [phone] agent (Mobile)
--- OUTSIDE RECORDS SUMMARY | 2019-05-24 10:28 | XMS REPORT | Clinical Summary ---
:[address] [facility] Address [address] [place] [address] Care Team Providers Name Role Phone Carin [...] Srikanth Dx) 04/20/2019 Orders Only Doctor Unassigned, Carrabelle 04/11/2019 Telephone Cardiology Ricardo Dyer Results (echo) [...] Refill Request 03/12/2019 Orders Only Doctor Unassigned, Carrabelle 03/01/2019 Office Visit Cardiology Dyer, Sendil Essential hypertension ( Primary Dx); MD Kaley Sinus tachycardia; MADDOX (dyspnea on exertion); MJ (obstructive sleep apnea) 02/27/2019 Refill Cardiology Dyer, Sendil Refill Request MD Kaley 02/23/2019 Telephone Obstetrics & Atiya Lo, Notification Gynecology 02/12/2019 Telephone Family Calvin Abernathy, Notification Carin Adams MD 02/08/2019 Hospital Encounter Radiology Atiya Lo MD 02/08/2019 Orders Only Doctor Unassigned, Carrabelle 02/01/2019 Office Visit Orthopedic Surgery Tye Sanchez, 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 [address] [place] [address] 10/08/2019 Office Visit Oncology Daphney Calderon, SOFTWARE DEVELOPMENT INTERN [address] [place], [place] 257525 10/11/2019 Office Visit Neurology Kath Farr MD 26[address] [place], [place] 034303 01/30/2020 Office Visit Obstetrics & Gynecology Netta Rausch PA-C [facility] [address] [place] [address] 04/23/2020 Office Visit Urology Corry Shen FNP [address] [facility] 102 [place], [place] [phone] Health Maintenance Due Date Last Done Comments INFLUENZA VACCINE 05/27/2019 06/30/2018, 06/15/2017, 08/05/2016 MAMMOGRAM 02/09/2020 02/08/2019, 02/01/2018 PAP SMEAR 01/30/2024 01/29/2019, 10/31/2015 DTaP,Tdap,and Td Vaccines (2 10/31/2025 10/31/2015 - Td) PNEUMOCOCCAL 0-64 YEARS Aged Out 03/07/2016, No longer eligible based COMBINED SERIES 04/01/2014 on patient's age to complete this topic Procedures Procedure Name Priority Date/Time Associated Diagnosis Comments [facility] PATIENT FINANCIAL Routine 04/20/2019 9:23 POLICY [...] results section. from Last 3 Months Results [facility] PATIENT FINANCIAL POLICY (04/20/2019 9:23 AM CDT) Specimen Performing Organization Address City/State/Zipcode Phone Number [facility] NO SHOW OR MISSED APPOINTMENT POLICY ACKNOWLEDGEMENT (04/20/2019 9:22 AM CDT) Specimen Performing Organization Address City/State/Zipcode Phone Number [facility] POCT URINALYSIS, INSTRUMENT (04/20/2019 9:20 AM CDT) [...] CATCH ECHO ROUTINE W/DOPPLER COLOR Preferred Location: [facility] (2018 9:05 AM CDT) Specimen Performing Organization Address [facility]/[place] Phone Number ECHO EXTERNAL PROVIDER RECORDS (03/12/2019 12:01 AM CDT) Specimen Performing Organization Address [facility] Phone Number [facility] BI SCREENING TOMOSYNTHESIS BILATERAL (02/08/2019 10:28 AM [...] Overall: 1 - Negative Performing Organization Address [facility] Phone Number PACS NOTICE OF PRIVACY PRACTICES (02/08/2019 9:30 AM CDT) Specimen Performing Organization Address [facility] Phone Number [facility] CONSENT/REFUSAL FOR DIAGNOSIS AND TREATMENT (02/08/2019 9:29 AM CDT) Specimen Performing Organization Address [facility]/[place] Phone Number [facility] ASSIGNMENT OF BENEFITS (02/08/2019 9:29 AM CDT) Specimen Performing Organization Address [facility]/[place] Phone Number [facility] MEDICATION CORRESPONDENCE (02/08/2019 12:01 AM CDT) Specimen Performing Organization Address [facility]/[place] Phone Number [facility] SURGICAL PATHOLOGY EXAM (01/29/2019 11:32 AM CDT) Case Report Surgical Pathology Case: [id number] [facility] Authorizing Provider:Atiya Lo MDCollected: 01/29/2019 1132 SERVICES [facility] Women'sReceived: 01/29/2019 1830 [facility] Pathologist: Merry Bedolla MD Specimen:ENDOCERVICAL, Polyp Final Diagnosis [facility] Electronically signed A. ENDOCERVIX, POLYPECTOMY: SERVICES by Merry Bedolla - BENIGN ENDOCERVICAL POLYP MD Anne on 01/31/2019 at 1:58 PM I have personally reviewed all specimens/slides and agree with all statements made by residents, fellows or pathologist assistants whose name(s) may appear on this report. Final Diagnosis [facility] Comment SERVICES Pathologist professional component performed at: [facility] Laboratory Services - [address] [address] Clinical endocervical polyp [facility] Information SERVICES Gross Description Specimen A is received in formalin labelled with the patient s name, [facility] number "endocervical polyp" and consists of a single maroon irregular polypoid soft tissue (2.5 x 0.9 x 0.6 cm). The specimen is bisected and entirely submitted in A1. [facility] SERVICES IRINEO Lassiter (ASCP)cm Embedded Images [facility] SERVICES Specimen Tissue - ENDOCERVICAL Performing Organization Address City/State/Zipcode Phone Number [facility] CLIA: [id number], [address] [place] [address] [phone] [facility] PAP Smear-Liquid Based (01/29/2019 11:31 AM CDT) Specimen Swab - CERVIX Performing Organization Address City/[facility]/Zipcode Phone Number [facility] CLIA: [id number], [address] [place] [phone] [facility] HIGH RISK HPV-THIN PREP (01/29/2019 11:31 AM CDT) High Risk HPV Negative Negative [facility] SERVICES Specimen Swab - CERVIX Performing Organization Address City/[facility]/Zipcode Phone Number [facility] CLIA: [id number], [address] [place] [address] [phone] [facility] LAB ONLY PAP SMEAR-LIQUID BASED (01/29/2019 11:31 AM CDT) Case Report Gynecologic Cytology Case: [id number] [facility] Authorizing Provider:Atiya Lo MDCollected: 01/29/2019 1131 SERVICES Ordering [facility]: [facility] Women'sReceived: 01/30/2019 0137 [facility] First Screen:Bruce Maldonado Specimen:Liquid Based Pap Preparation, CERVIX Clinical Information hx abnormal uterine [facility] bleeding and hx of SERVICES PCOS Specimen Adequacy Satisfactory for [facility] Evaluation(Endocervic SERVICES al/Transformation Zone Component Present) Interpretation Negative for [facility] Electronically intraepithelial SERVICES signed by ifrah Maldonado or malignancy Bruce Chahal on 02/09/2019 at 1:59 PM LMP LMP (specify date in [facility] Comments)Comment: SERVICES approx 12/22/2018 Educational Note Cervical cytology [facility] (Pap Test) is a SERVICES [...] of any Pap Test result. Embedded Images [facility] SERVICES Specimen Swab - CERVIX Performing Organization Address City/State/Zipcode Phone Number [facility] SERVICES CLIA: [id number], [address] [place] [address] [facility] from Last 3 Months Insurance Payer Benefit Plan / Subscriber ID Effective Phone Address Type Group Dates [facility] [id number] 2017-Pre Medicare Adv HEALTHCARE - HEALTHCARE sent HMO MANAGED DUAL COMPLETE MEDICARE HMO TM[facility] MEDICAID OF xxxxxxxxx 2016-Pr [phone] Medicaid [place] esent [id number] [place] [address] [facility] [id number] 2017-Pre P O BOX [facility] sent [id number] [place] [address] (Home) [address] [phone] [place], [place] (Work) [address] Advance Directives Name Relationship Healthcare Agent Communication Relationship Laura Olivia Mother Primary healthcare agent Kei Rahman Father First [facility] healthcare [phone] agent (Mobile)
--- OUTSIDE RECORDS SUMMARY | 2019-05-24 10:28 | XMS REPORT | Summary of Care ---
:1975 Author Organization [facility] Address [address] [place] [address] Care Team Providers Name Role Phone Carin Abernathy MD Primary Care Provider Leslee Diamond Unavailable Unavailable Ricardo Dyer MD Unavailable Reason for Visit Reason Comments Rx Concern/Question Encounter Details Date Type Department Care Team Description 05/04/2019 Telephone [facility] Family Carin Abernathy, Rx Concern/ Question Medicine - Sarthak HOLLINS [address] [place] [address] [address] [place] [phone] [address] Allergies Active Allergy Reactions Severity Noted [...] as of this encounter (statuses as of 05/07/2019) Medications Medication Sig Dispensed Refills Start Date [...] remission, Anxiety disorder due to medical condition documented as of this encounter (statuses as of 05/07/2019) Active Problems Problem Noted Date Morbid obesity [...] as of this encounter (statuses as of 05/07/2019) Immunizations Name Administration Dates Next Due Heamophilus [...] Treatment Date Type Specialty Care Team Description 06/15/2019 Office Visit Pulmonary Disease Gracie Booth DO [facility] [place] [phone] 07/10/2019 Office Visit Family Medicine Carin Abernathy MD 136 [facility] [place] [phone] 07/27/2019 Office Visit Endocrinology Diabetes & Mateo De La Torre [address] 208 [place], [place] [address] 08/31/2019 Office Visit Cardiology iRcardo Dyer MD [facility] 106 [place] [phone] 10/08/2019 Office Visit Oncology Daphney Calderon, LAST [address] [place] [address] [phone] 10/11/2019 Office Visit Neurology Kath Farr MD [facility]0 [place], [place] [address] 01/30/2020 Office Visit Obstetrics & Gynecology Netta Rausch PA-C [address] [place] [address] Drive [facility] 208 [place] [phone] 04/23/2020 Office Visit Urology Corry Shen, PARK ACTIVITIES COORDINATOR [address] [facility] [address] [address] [phone] Health Maintenance Due Date Last Done Comments INFLUENZA VACCINE 05/27/2019 06/30/2018, 06/15/2017, 08/05/2016 MAMMOGRAM 02/09/2020 02/08/2019, 02/01/2018 PAP SMEAR 01/30/2024 01/29/2019, 10/31/2015 DTaP,Tdap,and Td Vaccines (2 10/31/2025 10/31/2015 - Td) PNEUMOCOCCAL 0-64 YEARS Aged Out 03/07/2016, No longer eligible based COMBINED SERIES 04/01/2014 on patient's age to complete this topic documented as of this encounter Results Not on filedocumented in this encounter Insurance Payer Benefit Plan / Subscriber ID Effective Phone Address Type Group Dates [facility] [id number] 2017-Pre Medicare Adv HEALTHCARE - HEALTHCARE sent HMO MANAGED DUAL COMPLETE MEDICARE HMO [place] MEDICAID OF xxxxxxxxx 2016-Pr [phone] Medicaid [place] esent [id number] [place] [address] [facility] [id number] 2017-Pre P O BOX [facility] sent [id number] [place] [address] documented as of this encounter Advance Directives Name Relationship Healthcare Agent Communication Relationship Laura Olivia Mother Primary healthcare agent Kei Rahman Father First alternate healthcare [phone] agent (Mobile)
--- OUTSIDE RECORDS SUMMARY | 2019-05-24 10:29 | XMS REPORT | Summary of Care ---
:1975 Author Organization [facility] Address [address] [place] [address] Care Team Providers Name Role Phone Carin Abernathy MD Primary Care Provider Leslee Diamond Unavailable Unavailable Ricardo Dyer MD Unavailable Reason for Visit Reason Comments Refill Request Encounter Details Date Type Department Care Team Description 05/07/2019 Refill [facility] Family Medicine Carin Abernathy MD Refill Request - [address] [address] [place] [address] Allergies Active Allergy Reactions Severity Noted Date [...] 05/07/2019) Medications Medication Sig Dispensed Refills Start End Status Date Date FOLIC ACID ORAL Take by mouth 0 Active daily. MULTIVIT Take by mouth. 0 Active &MINERALS/FERROUS FUM (MULTI VITAMIN ORAL) loratadine 10 mg Take 1 tablet by 30 tablet 0 Active tabletIndications: mouth daily. 7 Viral URI METHYLCELLULOSE 0 Active (FIBER THERAPY MISC) DOCUSATE SODIUM Take by mouth. 0 Active (COLACE ORAL) vitamin C with derrell Take 1,000 mg by 0 Active hips (VITAMIN C) mouth daily. 1,000 mg tablet cholecalciferol, Take 1,000 Units 0 Active vitamin D3, by mouth daily. (VITAMIN D3) 1,000 unit tablet OMEPRAZOLE Take by mouth. 0 Active (PRILOSEC ORAL) coQ10, ubiquinol, Take 1 capsule by 30 capsule 11 Active 100 mg mouth daily. 8 CapIndications: Back muscle spasm, Right groin pain, Medication monitoring encounter, On statin therapy acetaminophen 650 Take 1 tablet by 90 tablet 5 Active mg CR mouth every 8 8 tabletIndications: (eight) hours as Peripheral needed for Pain. polyneuropathy, Muscle pain, Arthralgia of multiple joints CRANBERRY FRUIT Take by mouth 0 Active EXTRACT (CRANBERRY daily. ORAL) CALCIUM ORAL Take by mouth 0 Active daily. DOCOSAHEXANOIC Take 1,000 mg by 0 Active ACID/EPA (FISH OIL mouth daily. ORAL) TENS Units (TENS Use as directed 1 Device 0 Active 504) Monet 8 cyanocobalamin 1 mL by 30 mL 0 Active (VITAMIN B-12) Intramuscular 8 1,000 mcg/mL route every 2 injectionIndication (two) weeks. s: B12 deficiency Nitrofurantoin&Nit. Take 1 capsule by 20 capsule 1 Active Macrocryst 100 mg mouth twice daily 8 capsule for 3 days as needed FERROUS SULFATE 325 TAKE ONE TABLET 90 tablet 5 Active mg (65 mg iron) BY MOUTH THREE 8 tabletIndications: TIMES DAILY WITH Acquired hemolytic MEALS anemia albuterol (PROAIR Inhale 2 Puffs 8.5 g 11 Active HFA) 90 every 6 (six) 8 mcg/actuation hours as needed inhaler for Wheezing or Shortness of Breath. meloxicam 15 mg Take 1 tablet by 30 tablet 0 Active tablet mouth once daily 8 as needed for Pain or Inflammation. REPLACES IBUPROFEN promethazine-dextro Take 5 mL by 120 mL 0 Active methorphan 6.25-15 mouth 4 (four) 9 mg/5 mL times daily as syrupIndications: needed for Cough Acute bacterial or Cold symptoms. sinusitis, URI with cough and congestion pregabalin 75 mg Take 1 capsule by 90 capsule 5 Active capsuleIndications: mouth 3 (three) 9 Peripheral times daily. polyneuropathy levothyroxine 50 TAKE 1 TABLET BY 90 tablet 3 Active mcg MOUTH ONCE DAILY 9 tabletIndications: IN THE MORNING Acquired hypothyroidism LUTEIN ORAL Take by mouth. 0 Active BIOTIN ORAL Take by mouth. 0 Active FLOVENT HFA 110 INHALE 2 PUFFS BY 1 Inhaler 11 Active mcg/actuation MOUTH TWICE DAILY 9 inhalerIndications: RINSE MOUTH Uncomplicated AFTER USE* asthma, unspecified asthma severity, unspecified whether persistent diltiazem (CARTIA Take 1 capsule by 180 capsule 2 Active XT) 120 mg 24 hr mouth 2 (two) 9 capsuleIndications: times daily. Essential hypertension, Sinus tachycardia, MADDOX (dyspnea on exertion), MJ (obstructive sleep apnea) losartan 50 mg Take 1 tablet by 180 tablet 2 Active tabletIndications: mouth 2 (two) 9 Essential times daily. hypertension, Sinus tachycardia, MADDOX (dyspnea on exertion), MJ (obstructive sleep apnea) cyanocobalamin 1 mL by 15 mL 1 Active 1,000 mcg/mL Intramuscular 9 injectionIndication route every 2 s: B12 deficiency (two) weeks. Indications: B12 deficiency fluticasone USE 2 SPRAY(S) IN 1 Bottle 5 Active propionate 50 EACH NOSTRIL ONCE 9 mcg/actuation nasal DAILY sprayIndications: Acute bacterial sinusitis, URI with cough and congestion cyclobenzaprine 5 Take one tab 90 tablet 3 Active mg every 8 hours as 9 tabletIndications: needed Tension headache amitriptyline 50 mg Take 1 tablet by 90 tablet 3 Active tabletIndications: mouth at bedtime. 9 Tension headache busPIRone 10 mg Take 2 tablets by 120 tablet 3 Active tabletIndications: mouth 2 (two) 9 Anxiety disorder times daily. due to medical condition citalopram 40 mg Take 1 tablet by 30 tablet 3 Active tabletIndications: mouth daily. 9 MDD (recurrent major depressive disorder) in remission, Anxiety disorder due to medical condition rosuvastatin 10 mg Take 1 tablet by 90 tablet 1 Active tabletIndications: mouth at bedtime. 9 Mixed hyperlipidemia ROSUVASTATIN 10 mg TAKE 1 TABLET BY 90 tablet 1 Discontinued tabletIndications: MOUTH AT BEDTIME 9 019 Mixed hyperlipidemia documented as of this encounter (statuses as [...] Office Visit Pulmonary Disease Gracie Booth DO [address] [place] [phone] 07/10/2019 Office Visit Family Medicine Carin Abernathy MD [address] [facility] [phone] 07/27/2019 Office Visit Endocrinology Diabetes & Mateo De La Torre [facility] [address] [facility] [address] Sarah [address] [place] [address] [phone] 08/31/2019 Office Visit Cardiology Ricardo Dyer MD [address] SARAH [address] [place] [phone] 10/08/2019 Office Visit Oncology Daphney Calderon, LAST [address] [place] [address] [phone] 10/11/2019 Office Visit Neurology Kath Farr MD [address] [place] [address] 01/30/2020 Office Visit Obstetrics & Gynecology Netta Rausch PA-C [address] [place] [phone] 04/23/2020 Office Visit Urology Corry Shen FNP [address] [place] [address] [phone] Health Maintenance Due Date Last Done Comments INFLUENZA VACCINE 05/27/2019 06/30/2018, 06/15/2017, 08/05/2016 MAMMOGRAM 02/09/2020 02/08/2019, 02/01/2018 PAP SMEAR 01/30/2024 01/29/2019, 10/31/2015 DTaP,Tdap,and Td Vaccines (2 10/31/2025 10/31/2015 - Td) PNEUMOCOCCAL 0-64 YEARS Aged Out 03/07/2016, No longer eligible based COMBINED SERIES 04/01/2014 on patient's age to complete this topic documented as of this encounter Results Not on filedocumented in this encounter Visit Diagnoses Diagnosis Mixed hyperlipidemia documented in this encounter Insurance Payer Benefit Plan / Subscriber ID Effective Phone Address Type Group Dates [facility] [id number] 2017-Pre Medicare Adv HEALTHCARE - HEALTHCARE sent HMO MANAGED DUAL COMPLETE MEDICARE HMO TM MEDICAID OF xxxxxxxxx 2016-Pr [phone] Medicaid [place] esent [id number] [place] [address] [employer] OPT[employer] [id number] 2017-Pre [address] BOX [facility] sent [id number] [email or web address] [address] documented as of this encounter Advance Directives Name Relationship Healthcare Agent Communication Relationship Chaparrochristiano Olivia Mother Primary healthcare agent Kei Lacey Father First alternate healthcare [phone] agent (Mobile)
--- OUTSIDE RECORDS SUMMARY | 2019-05-24 10:29 | XMS REPORT | Summary of Care ---
:1975 Author Organization [facility] Address [address] [place] [address] Care Team Providers Name Role Phone Carin Abernathy MD Primary Care Provider Leslee Diamond Unavailable Unavailable Ricardo Dyer MD Unavailable Reason for Visit Reason Comments Assessment Triage Encounter Details Date Type Department Care Team Description 05/24/2019 Telephone [facility] Family Carin Abernathy, Assessment ( Triage ) Medicine - Sarthak HOLLINS [address] [place] [address] [place] [phone] Allergies Active Allergy Reactions Severity Noted [...] as of this encounter (statuses as of 05/24/2019) Medications Medication Sig Dispensed Refills Start Date [...] sinusitis, URI with symptoms. cough and congestion pregabalin 75 mg Take [...] Take 1 tablet by 90 tablet 1 05/07/2019 Active tabletIndications: mouth at bedtime. Mixed hyperlipidemia documented as of this encounter (statuses as of 05/24/2019) Active Problems Problem Noted Date Morbid obesity [...] as of this encounter (statuses as of 05/24/2019) Immunizations Name Administration Dates Next Due Heamophilus [...] Office Visit Pulmonary Disease Gracie Booth DO [address] [place] [phone] 07/10/2019 Office Visit Family Medicine Carin Abernathy MD 136 [facility] [place] [phone] 07/27/2019 Office Visit Endocrinology Diabetes & Mateo De La Torre [address] [place], [place] [address] 08/31/2019 Office Visit Cardiology Ricardo Dyer MD [address] [facility] 106 [place] [phone] 10/08/2019 Office Visit Oncology Daphney Calderon, LAST [address] [place] [address] [phone] 10/11/2019 Office Visit Neurology Kath Farr MD [facility]0 [place], [place] [address] 01/30/2020 Office Visit Obstetrics & Gynecology Netta Rausch PA-C [address] [place] [address] Drive [facility] 208 [place] [phone] 04/23/2020 Office Visit Urology Corry Shen, RECORDS SUPERVISOR [address] [address] [phone] Health Maintenance Due Date Last Done Comments INFLUENZA VACCINE (#1) 2019 06/30/2018, 08/05/2016 MAMMOGRAM 02/09/2020 02/08/2019, 02/01/2018 PAP SMEAR [...] Effective Phone Address Type Group Dates [place] [id number] 2017-Pre Medicare Adv HEALTHCARE - HEALTHCARE sent HMO MANAGED DUAL COMPLETE MEDICARE HMO [facility] MEDICAID OF xxxxxxxxx 2016-Pr [phone] Medicaid [place] esent [id number] [place] [address] [employer] [id number] 2017-Pre P O BOX [facility] sent [id number] [place] [address] documented as of this encounter Advance Directives Name Relationship Healthcare Agent Communication Relationship Laura Olivia Mother Primary healthcare agent Kei Rahman Father First alternate healthcare [phone] agent (Mobile)
[2019-05-24] MEDS ORDERED: CLOPIDOGREL 75 MG TABLET ONE (10:36)
[2019-05-24] MEDS ORDERED: NA CHLORIDE 0.9% 1,000 ML ONE (10:37)
[2019-05-24] MEDS ORDERED: MORPHINE 2 MG/ML SYR ONE (10:37)
[2019-05-24 10:59] LABS: Absolute Lymphocytes (CBC) 0.9 K/uL (0.7-4.9); Basophils % 0.8 % (0-1.3); Lymphocytes % 10.6 % (15.3-44.8); MPV 9.9 fL (7.6-11.3)
[2019-05-24 11:01] LABS: Protime INR 0.97
[2019-05-24 11:16] LABS: ALT/SGPT 54 U/L (12-78); AST/SGOT 58 U/L (15-37); Alkaline Phosphatase 135 U/L (45-117); BUN Blood Urea Nitrogen 8 mg/dL (7-18); Bicarbonate 27 mmol/L (21-32); Bilirubin Direct 0.2 mg/dL (0-0.2); Bilirubin Total 0.5 mg/dL (0.2-1.0); Glucose Level 123 mg/dL (74-106); Magnesium 2.2 mg/dL (1.8-2.4); NT PRO-BNP 330 pg/mL (<125); Potassium 3.7 mmol/L (3.5-5.1); Protein, Total 7.5 g/dL (6.4-8.2); Sodium Level 145 mmol/L (136-145); Troponin (Emerg Dept Use Only) < 0.02 ng/mL (0.0-0.045)
--- NOTE | 2019-05-24 11:20 | RAD REPORT ---
EXAM DESCRIPTION: RAD - Chest Single View - 05/24/2019 10:57 am CLINICAL HISTORY: CHEST PAIN Chest pain. COMPARISON: Chest Single View dated 08/14/2017; Chest Single View dated 05/30/2017; Chest Single View dated 05/18/2017; Chest Single View dated 05/07/2017 FINDINGS: Portable technique limits examination quality. Chronic elevation the right hemidiaphragm is present. The lungs are grossly clear. The heart is upper limit of normal in size. No displaced fractures. IMPRESSION: No acute intrathoracic process suspected.
[2019-05-24 12:06] LABS: Urine Blood NEGATIVE (NEG); Urine Glucose NEGATIVE (NEG); Urine Protein NEGATIVE (NEG); Urine pH 6.5 (5.0-7.0)
--- NOTE | 2019-05-24 12:32 | RAD REPORT ---
EXAM DESCRIPTION: US - Abdomen Exam Limited - 05/24/2019 12:10 pm CLINICAL HISTORY: elevated liver enzymes COMPARISON: Abdomen Pelvis W Contrast dated 09/02/2017 None. FINDINGS: Gallbladder is absent. Common bile duct is normal with no common duct stone identified. The liver and spleen show no suspicious findings. Liver is fatty infiltrated. Portal vein is normal. IMPRESSION: Fatty liver with no focal liver lesions seen.
--- NOTE | 2019-05-24 14:57 | EKG ---
Test Date: 2019-05-24 Test Time: 10:26:31 Electronic Publications Specialist: AYDE MEASUREMENT RESULTS: Intervals: Rate: 108 WI: 164 QRSD: 102 QT: 362 QTc: 485 [place]: P: 32 WI: 164 QRS: -51 T: 61 INTERPRETIVE STATEMENTS: Sinus tachycardia Pulmonary disease pattern Left anterior fascicular block Minimal voltage criteria for LVH, may be normal variant Septal infarct, age undetermined Abnormal ECG Compared to ECG 08/14/2017 03:08:24 Left ventricular hypertrophy now present Myocardial infarct finding now present Atrial premature complex(es) no longer present Electronically Signed On 05-24-19 14:56:07 CDT by Elijah Lock
--- NOTE | 2019-05-24 18:35 | EDPHYS ---
Physician Documentation [facility] Name: Linda Rahman Age: 43 yrs Sex: Female : 1975 Arrival Date: 05/24/2019 Time: 10:18 Bed 2 Private MD: ED Physician Mateo Odell HPI: 05/24 10:33 This 43 yrs old Female presents to ER via Ambulatory with complaints of Chest cp Pressure. 10:33 The patient or guardian reports chest pain that is located primarily in the anterior cp chest wall, bilaterally. 10:33 Onset: yesterday. The pain does not radiate. cp 10:35 Associated signs and symptoms: Pertinent positives: palpitations, shortness of breath, cp Pertinent negatives: abdominal pain, cough, lower extremity pain, lower extremity swelling, recent travel, syncope, vomiting. 10:35 The chest pain is described as a pressure. Duration: The patient or guardian reports a cp single episode, that is still ongoing, and unchanged. Historical: - Allergies: 10:23 Amoxicillin; aj1 10:23 Benadryl; aj1 10:23 Benzonatate; aj1 10:23 Codeine; aj1 10:23 Demerol; aj1 10:23 Geodon; aj1 10:23 Ibuprofen; aj1 10:23 Lorazepam; aj1 10:23 Meclizine; aj1 10:23 Tessalon Perles; aj1 - PMHx: 10:23 Anemia; High Cholesterol; Hypertension; neuropathy; aj1 - Immunization history:: Adult Immunizations up to date. - Ebola Screening: : Patient denies travel to an Ebola-affected area in the 21 days before illness onset. - Social history:: Smoking status: Patient/guardian denies using tobacco. ROS: 10:40 Constitutional: Negative for body aches, chills, fever, poor PO intake. cp 10:40 Eyes: Negative for injury, pain, redness, and discharge. cp 10:40 ENT: Negative for drainage from ear(s), ear pain, sore throat, difficulty swallowing, difficulty handling secretions. 10:40 Cardiovascular: Positive for chest pain, Negative for edema, palpitations. 10:40 Respiratory: Positive for shortness of breath, Negative for cough, wheezing. 10:40 Abdomen/GI: Negative for abdominal pain, nausea, vomiting, and diarrhea, constipation, black/tarry stool, rectal bleeding. 10:40 Back: Negative for radiated pain. 10:40 : Negative for urinary symptoms. 10:40 Skin: Negative for rash. 10:40 Neuro: Negative for altered mental status, headache, syncope, weakness. 10:40 All other systems are negative. Exam: 10:45 Constitutional: The patient appears in no acute distress, alert, awake, cp non-diaphoretic, non-toxic, well developed, well nourished, obese. 10:45 Head/Face: Normocephalic, atraumatic. cp 10:45 Eyes: Periorbital structures: appear normal, Conjunctiva: normal, no exudate, no injection, Sclera: no appreciated abnormality, Lids and lashes: appear normal, bilaterally. 10:45 ENT: External ear(s): are unremarkable, Nose: is normal, Mouth: is normal, Posterior pharynx: is normal, airway is patent, no erythema, no exudate. 10:45 Chest/axilla: Inspection: normal, Palpation: is normal, no crepitus, no tenderness. 10:45 Cardiovascular: Rate: tachycardic, Rhythm: regular, Edema: is not appreciated, JVD: is not appreciated. 10:45 Respiratory: the patient does not display signs of respiratory distress, Respirations: normal, no use of accessory muscles, no retractions, no splinting, no tachypnea, labored breathing, is not present, Breath sounds: are clear throughout, no decreased breath sounds, no stridor, no wheezing. 10:45 Abdomen/GI: Inspection: obese Bowel sounds: active, all quadrants, Palpation: abdomen is soft and non-tender, in all quadrants. 10:45 Back: pain, is absent, ROM is normal. 10:45 Skin: no rash present. 10:45 Neuro: Orientation: to person, place \T\ time. Mentation: is normal, Cerebellar function: is grossly normal, Motor: moves all fours, strength is normal, Sensation: is normal. 10:56 ECG was reviewed by the Attending Physician. cp 13:45 ECG was reviewed by the Attending Physician. cp Vital Signs: 10:23 BP 142 / 98; Pulse 110; Resp 28; Temp 98.7(TE); Pulse Ox 98% on R/A; Weight 107.5 kg aj1 (R); Height 5 ft. 2 in. (157.48 cm) (R); Pain 7/10; 11:11 BP 127 / 99; Pulse 95; Resp 28; Pulse Ox 98% on R/A; sv 12:15 BP 147 / 93; Pulse 92; Resp 16; Pulse Ox 100% on R/A; Pain 0/10; hb 13:27 BP 123 / 57; Pulse 92; Resp 22; Pulse Ox 99% ; sv 14:17 BP 132 / 88; Pulse 90; Resp 18; Pulse Ox 98% ; sv 10:23 Body Mass Index 43.35 (107.50 kg, 157.48 cm) aj1 MDM: 10:35 Patient medically screened. cp 14:24 Data reviewed: vital signs, nurses notes, lab test result(s), EKG, radiologic studies, cp plain films. 14:24 The patient was not given aspirin in the Emergency Department. Not indicated due to cp patient's past medical history. Test interpretation: by ED physician or midlevel provider: ECG, plain radiologic studies. Counseling: I had a detailed discussion with the patient and/or guardian regarding: the historical points, exam findings, and any diagnostic results supporting the discharge/admit diagnosis, lab results, radiology results, the need for outpatient follow up, a art professor, a family practitioner, to return to the emergency department if symptoms worsen or persist or if there are any questions or concerns that arise at home. Response to treatment: the patient's symptoms have markedly improved after treatment, and as a result, I will discharge patient. Special discussion: Based on the patient's history, exam, and Dx evaluation, there is no indication for emergent intervention or inpatient Tx. It is understood by the patient/guardian that if the Sx's persist or worsen they need to return immediately for re-evaluation. 05/24 10:33 Order name: Basic Metabolic Panel cp 05/24 10:33 Order name: CBC with Diff cp 05/24 10:33 Order name: LFT's cp 05/24 10:33 Order name: Magnesium cp 05/24 10:33 Order name: NT PRO-BNP cp 05/24 10:33 Order name: PT-INR cp 05/24 10:33 Order name: Troponin (emerg Dept Use Only) cp 05/24 10:51 Order name: Urine Dipstick--Ancillary (enter results) eb 05/24 10:51 Order name: Urine --Ancillary (enter results) eb 05/24 11:07 Order name: Protime (+INR); Complete Time: 11:29 EDMS 05/24 11:08 Order name: CBC with Automated Diff; Complete Time: 11:29 EDMS 05/24 11:29 Interpretation: Normal except: ZOIE% 82.5; LYM% 10.6. cp 05/24 11:17 Order name: Basic Metabolic Panel; Complete Time: 11:29 EDMS 05/24 11:29 Interpretation: Normal except: CL 108; GLUC 123; GFR 51. cp 05/24 11:17 Order name: Liver (Hepatic) Function; Complete Time: 11:29 EDMS 05/24 11:29 Interpretation: Normal except: AST 58; ALK 135. cp 05/24 11:17 Order name: Troponin (Emerg Dept Use Only); Complete Time: 11:29 EDMS 05/24 11:30 Interpretation: Abnormal: TROPED < 0.02. cp 05/24 10:33 Order name: XRAY Chest (1 view) cp 05/24 10:33 Order name: EKG; Complete Time: 10:47 cp 05/24 10:33 Order name: Cardiac monitoring; Complete Time: 10:39 cp 05/24 10:33 Order name: EKG - Nurse/Tech; Complete Time: 10:39 cp 05/24 10:33 Order name: IV Saline Lock; Complete Time: 10:39 cp 05/24 10:33 Order name: Labs collected and sent; Complete Time: 10:39 cp 05/24 10:33 Order name: O2 Per Protocol; Complete Time: 10:39 cp 05/24 10:33 Order name: O2 Sat Monitoring; Complete Time: 10:39 cp 05/24 11:17 Order name: NT PRO-BNP; Complete Time: 11:29 EDMS 05/24 11:29 Interpretation: Abnormal: NT PRO-BNP 330. cp 05/24 11:17 Order name: Magnesium; Complete Time: 11:29 EDMS 05/24 11:32 Order name: US Abdomen Limited cp 05/24 13:28 Order name: EKG; Complete Time: 16:31 sv 05/24 13:28 Order name: Troponin (emerg Dept Use Only) sv 05/24 10:33 Order name: Urine Dipstick-Ancillary (obtain specimen); Complete Time: 10:42 cp 05/24 10:33 Order name: Urine Test (obtain specimen); Complete Time: 10:42 cp EC:56 Rate is 108 beats/min. Rhythm is regular. DE interval is normal. QRS interval is cp prolonged at 102 msec. QT interval is normal. T waves are Inverted in leads aVL, aVR. Interpreted by me. Reviewed by me. 13:45 Rate is 93 beats/min. Rhythm is regular. DE interval is normal. QRS interval is cp prolonged at 108 msec. QT interval is normal. Interpreted by me. Reviewed by me. Administered Medications: 10:44 Drug: morphine 2 mg {Note: RASS 0.} Route: IVP; Site: right antecubital; hb 10:45 Drug: PlaVIX 75 mg Route: PO; hb 10:45 Drug: NS 0.9% 1000 ml Route: IV; Rate: 1000 ml/hr; Site: right antecubital; hb Disposition: 14:50 Co-signature as Attending Physician, Mateo Odell MD I agree with the assessment and kdr plan of care. Disposition: 05/24/19 14:25 Discharged to Home. Impression: Chest pain, unspecified. - Condition is Stable. - Discharge Instructions: Nonspecific Chest Pain, Aspirin and Your Heart. - Medication Reconciliation Form, Thank You Letter, Antibiotic Education, Prescription Opioid Use form. - Follow up: Private Physician; When: 1 - 2 days; Reason: Recheck today's complaints. - Problem is new. - Symptoms have improved. Signatures: Dispatcher [employer] EDVA Charlene Andujar RN RN aj1 Adriana Bloom RN RN sv Rittger, Kevin, MD MD [facility] Young Burgos PA PA cp Baxter, Heather, RN RN Corrections: (The following items were deleted from the chart) 14:47 14:25 05/24/2019 14:25 Discharged to Home. Impression: Chest pain, unspecified. hb Condition is Stable. Forms are Medication Reconciliation Form, Thank You Letter, Antibiotic Education, Prescription Opioid Use. Follow up: Private Physician; When: 1 - 2 days; Reason: Recheck today's complaints. Problem is new. Symptoms have improved. cp
--- NOTE | 2019-05-24 18:35 | ER ---
Nurse's Notes [facility] Name: Linda Rahman Age: 43 yrs Sex: Female : 1975 Arrival Date: 05/24/2019 Time: 10:18 Bed 2 Private MD: Diagnosis: Chest pain, unspecified Presentation: 05/24 10:21 Presenting complaint: Patient states: Chest pressure that started last night. Patient aj1 also reports palpitations, shortness of breath. Transition of care: patient was not received from another setting of care. Onset of symptoms was May 23, 2019. Risk Assessment: Do you want to hurt yourself or someone else? Patient reports no desire to harm self or others. Initial Sepsis Screen: Does the patient meet any 2 criteria? HR > 90 bpm. No. Patient's initial sepsis screen is negative. Does the patient have a suspected source of infection? No. Patient's initial sepsis screen is negative. Care prior to arrival: None. 10:21 Method Of Arrival: Ambulatory aj1 10:21 Acuity: HOLLEY 3 aj1 Triage Assessment: 10:23 General: Appears uncomfortable, Behavior is cooperative, anxious. Pain: Complains of aj1 pain in mid-sternal area Pain radiates to left lateral anterior chest Pain currently is 7 out of 10 on a pain scale. Quality of pain is described as pressure, tightness Pain began 1 day ago. Aggravated by nothing. Neuro: Level of Consciousness is awake, alert, obeys commands. Cardiovascular: Reports chest pain, palpitations, shortness of breath, Patient's skin is warm and dry. Respiratory: Airway is patent Respiratory effort is even, unlabored, Respiratory pattern is regular, symmetrical. Historical: - Allergies: 10:23 Amoxicillin; aj1 10:23 Benadryl; aj1 10:23 Benzonatate; aj1 10:23 Codeine; aj1 10:23 Demerol; aj1 10:23 Geodon; aj1 10:23 Ibuprofen; aj1 10:23 Lorazepam; aj1 10:23 Meclizine; aj1 10:23 Tessalon Perles; aj1 - PMHx: 10:23 Anemia; High Cholesterol; Hypertension; neuropathy; aj1 - Immunization history:: Adult Immunizations up to date. - Ebola Screening: : Patient denies travel to an Ebola-affected area in the 21 days before illness onset. - Social history:: Smoking status: Patient/guardian denies using tobacco. Screenin:37 Abuse screen: Denies threats or abuse. Denies injuries from another. Nutritional sv screening: No deficits noted. Tuberculosis screening: No symptoms or risk factors identified. Fall Risk None identified. Assessment: 10:45 General: Appears in no apparent distress. Behavior is calm, cooperative. Pain: Pain hb currently is 7 out of 10 on a pain scale. Neuro: Level of Consciousness is awake, alert, obeys commands, Oriented to person, place, time, situation. Cardiovascular: Heart tones S1 S2 present Capillary refill < 3 seconds Patient's skin is warm and dry. Respiratory: Airway is patent Respiratory effort is even, unlabored, Respiratory pattern is regular, symmetrical, Breath sounds are clear bilaterally. GI: No signs and/or symptoms were reported involving the gastrointestinal system. : No signs and/or symptoms were reported regarding the genitourinary system. EENT: No signs and/or symptoms were reported regarding the EENT system. Derm: Skin is pink, warm \T\ dry. Musculoskeletal: No signs and/or symptoms reported regarding the musculoskeletal system. 11:45 Reassessment: Patient appears in no apparent distress at this time. Patient and/or hb family updated on plan of care and expected duration. Pain level reassessed. Patient is alert, oriented x 3, equal unlabored respirations, skin warm/dry/pink. Patient denies pain at this time. 12:45 Reassessment: Patient appears in no apparent distress at this time. No changes from hb previously documented assessment. Patient and/or family updated on plan of care and expected duration. Pain level reassessed. Patient is alert, oriented x 3, equal unlabored respirations, skin warm/dry/pink. 13:30 Reassessment: Patient appears in no apparent distress at this time. No changes from sv previously documented assessment. Patient and/or family updated on plan of care and expected duration. Pain level reassessed. Patient is alert, oriented x 3, equal unlabored respirations, skin warm/dry/pink. 13:45 Reassessment: Patient appears in no apparent distress at this time. Patient and/or hb family updated on plan of care and expected duration. Pain level reassessed. Patient is alert, oriented x 3, equal unlabored respirations, skin warm/dry/pink. 14:45 Reassessment: Patient appears in no apparent distress at this time. Patient and/or hb family updated on plan of care and expected duration. Pain level reassessed. Patient is alert, oriented x 3, equal unlabored respirations, skin warm/dry/pink. Patient states symptoms have improved. Vital Signs: 10:23 BP 142 / 98; Pulse 110; Resp 28; Temp 98.7(TE); Pulse Ox 98% on R/A; Weight 107.5 kg aj1 (R); Height 5 ft. 2 in. (157.48 cm) (R); Pain 7/10; 11:11 BP 127 / 99; Pulse 95; Resp 28; Pulse Ox 98% on R/A; sv 12:15 BP 147 / 93; Pulse 92; Resp 16; Pulse Ox 100% on R/A; Pain 0/10; hb 13:27 BP 123 / 57; Pulse 92; Resp 22; Pulse Ox 99% ; sv 14:17 BP 132 / 88; Pulse 90; Resp 18; Pulse Ox 98% ; sv 10:23 Body Mass Index 43.35 (107.50 kg, 157.48 cm) aj1 ED Course: 10:18 Patient arrived in ED. as 10:23 Triage completed. aj1 10:23 Arm band placed on. aj1 10:27 Young Burgos PA is PHCP. cp 10:27 Mateo Odell MD is Attending Physician. cp 10:35 Patient has correct armband on for positive identification. Placed in gown. Bed in low sv position. Call light in reach. Adult w/ patient. school lunch monitor on. Pulse ox on. NIBP on. Door closed. Head of bed elevated. 10:35 Initial lab(s) drawn, by me, sent to lab. Inserted saline lock: 20 gauge in right sv antecubital area, using aseptic technique. Blood collected. Flushed right antecubital with 5 ml normal saline. Patient maintains SpO2 saturation greater than 95% on room air. 10:37 Adriana Bloom, ABDULLAHI is Primary Nurse. sv 10:49 Basic Metabolic Panel Sent. ss 10:49 CBC with Diff Sent. ss 10:49 LFT's Sent. ss 10:49 Magnesium Sent. ss 10:49 NT PRO-BNP Sent. ss 10:49 PT-INR Sent. ss 10:49 Troponin (emerg Dept Use Only) Sent. ss 11:00 Urine --Ancillary (enter results) Sent. sv 11:00 Urine Dipstick--Ancillary (enter results) Sent. sv 11:33 XRAY Chest (1 view) In Process Unspecified. EDMS 12:07 Ultrasound completed. hr 12:40 US Abdomen Limited Sent. sv 13:43 EKG done, by technical support intern. reviewed by Young CABELLO. 3 14:45 No provider procedures requiring assistance completed. IV discontinued, intact, hb bleeding controlled, No redness/swelling at site. Pressure dressing applied. Administered Medications: 10:44 Drug: morphine 2 mg {Note: RASS 0.} Route: IVP; Site: right antecubital; hb 10:45 Drug: PlaVIX 75 mg Route: PO; hb 10:45 Drug: NS 0.9% 1000 ml Route: IV; Rate: 1000 ml/hr; Site: right antecubital; hb Outcome: 14:25 Discharge ordered by MD. cp 14:45 Discharged to home ambulatory, with significant other. hb 14:45 Condition: stable 14:45 Discharge instructions given to patient, Instructed on discharge instructions, follow up and referral plans. Demonstrated understanding of instructions, follow-up care. 14:47 Patient left the ED. hb Signatures: Dispatcher [employer] EDMS Charlene Andujar RN RN aj1 Verde, Stephanie RN RN Petra Ellis Amelia as Smirch, Shelby, RN RN ss Page, Corey, PA PA cp Baxter, Heather, RN ABDULLAHI Suzanne Anton 3
[2019-05-24 19:42] VITALS: TEMP 98.7
[2019-05-24 19:48] VITALS: BP 132/88; O2SAT 98
--- NOTE | 2019-05-27 08:15 | EKG ---
Test Date: 2019-05-24 Test Time: 13:36:12 Logistics Program Manager: AYDE MEASUREMENT RESULTS: Intervals: Rate: 93 WY: 184 QRSD: 108 QT: 378 QTc: 469 [place]: P: 43 WY: 184 QRS: -43 T: 56 INTERPRETIVE STATEMENTS: Normal sinus rhythm Left axis deviation Pulmonary disease pattern Septal infarct, age undetermined Abnormal ECG Compared to ECG 05/24/2019 10:26:31 Left-axis deviation now present Sinus tachycardia no longer present Left anterior fascicular block no longer present Left ventricular hypertrophy no longer present Myocardial infarct finding still present Electronically Signed On 05-27-19 08:08:24 CDT by Elijah Lock
== END 2019-05-24 14:47 | disposition home or self-care (01) ==
LOC: ER 10:16
DX: R07.9 Chest pain, unspecified (principal); Z88.1 Allergy status to other antibiotic agents; Z88.6 Allergy status to analgesic agent; Z88.8 Allergy status to other drugs, medicaments and biological substances
CPT/HCPCS: 93005 ×2; 85025; 80048; 36415; 83735; 81025; 85610; 80076; 81003; 84484 ×2; 83880; 71045; 76705; 96374; 99285; J2270; J7030

== ENCOUNTER 2019-11-03 16:15 | Emergency (ER) | payer OTHER ==
--- OUTSIDE RECORDS SUMMARY | 2019-11-03 16:17 | XMS REPORT ---
:1975 [facility] Address [address] [place] [address] Dr. [address] [place] [address] Care Team Providers Name Role Phone Unavailable Unavailable Unavailable Problems This patient has no known problems. Allergies, Adverse Reactions, Alerts This patient has no known allergies or adverse reactions. Medications This patient has no known medications.
--- OUTSIDE RECORDS SUMMARY | 2019-11-03 16:23 | XMS REPORT | Summary of Care ---
:1975 Author Organization [facility] Address [address] [place] [id number] Care Team Providers Name Role Phone Carin Abernathy MD Primary Care Provider Leslee Diamond Unavailable Unavailable Ricardo Dyer MD Unavailable Reason for Visit Reason Comments Refill Request Encounter Details Date Type Department Care Team Description 06/05/2019 Refill [facility] Family Medicine Carin Abernathy MD Refill Request - [address] [address] [place] [address] Allergies Active Allergy Reactions Severity [...] as of this encounter (statuses as of 06/05/2019) Medications Medication Sig Dispensed Refills Start End [...] symptoms. sinusitis, URI with cough and congestion levothyroxine 50 TAKE 1 TABLET BY 90 [...] tabletIndications: mouth at bedtime. 9 Mixed hyperlipidemia pregabalin 75 mg Take 1 capsule by 90 capsule 0 Active capsuleIndications: mouth 3 (three) 9 Peripheral times daily. polyneuropathy pregabalin 75 mg Take 1 capsule by 90 capsule 5 Discontinued capsuleIndications: mouth 3 (three) 9 019 Peripheral times daily. polyneuropathy documented as of this encounter (statuses as of 06/05/2019) Active Problems Problem Noted Date Morbid obesity [...] as of this encounter (statuses as of 06/05/2019) Immunizations Name Administration Dates Next Due Heamophilus [...] Office Visit Pulmonary Disease Gracie Booth DO [address] [place] [phone] 07/10/2019 Office Visit Family Medicine Carin Abernathy MD [address] [facility] [place] [place] [phone] 07/27/2019 Office Visit Endocrinology Diabetes & Mateo De La [facility] [address] [facility] [address] [place] [address] [phone] 09/25/2019 Office Visit Cardiology Ricardo Dyer MD [address] [place] [phone] 10/08/2019 Office Visit Oncology Daphney Calderon, LAST [address] [place] [address] [phone] 10/11/2019 Office Visit Neurology Kath Farr MD [address] [place] [phone] 01/30/2020 Office Visit Obstetrics & Gynecology Netta Rausch PA-C [address] [facility] [address] [place] [phone] 04/23/2020 Office Visit Urology Corry Shen FNP [address] [facility] [address] [place] [address] [phone] Health Maintenance Due Date Last Done Comments [...] filedocumented in this encounter Visit Diagnoses Diagnosis Peripheral polyneuropathy Unspecified hereditary and idiopathic peripheral neuropathy documented in this encounter Insurance Payer Benefit Plan / Subscriber ID Effective Phone Address Type Group Dates [id number] 2017-Pre Medicare Adv HEALTHCARE - HEALTHCARE sent HMO MANAGED DUAL COMPLETE MEDICARE HMO [facility] MEDICAID OF xxxxxxxxx 2016-Pr [phone] Medicaid [place] esent [id number] [place] [address] [employer] [id number] 2017-Pre [address] [facility] sent [id number] [place] [address] documented as of this encounter Advance Directives Name Relationship Healthcare Agent Communication Relationship Laura Olivia Mother Primary healthcare agent Keiadiel Rahman Father First alternate healthcare [phone] agent (Mobile)
--- OUTSIDE RECORDS SUMMARY | 2019-11-03 16:24 | XMS REPORT | Summary of Care ---
:1975 Author Organization [facility] Address [address] [place] [address] Care Team Providers Name Role Phone Carin Abernathy MD Primary Care Provider Leslee Diamond Unavailable Unavailable Ricardo Dyer MD Unavailable Reason for Visit Reason Comments Follow-up Asthma Encounter Details Date Type Department Care Team Description 06/08/2019 Office Visit [facility] ADC Gracie Booth DO Moderate persistent asthma without complication (Primary Dx); Pulmonary Clinic [address] [facility] Morbid obesity; [address] [place] [address] , [facility] Chronic diastolic heart failure; [address] [place], [place] MJ (obstructive sleep apnea) [place] [address] Allergies Active Allergy Reactions Severity Noted Date [...] as of this encounter (statuses as of 06/08/2019) Medications Medication Sig Dispensed Refills Start Date [...] sinusitis, URI with symptoms. cough and congestion levothyroxine 50 mcg TAKE 1 TABLET BY [...] Active tabletIndications: mouth at bedtime. Mixed hyperlipidemia pregabalin 75 mg Take 1 capsule by 90 capsule 0 06/05/2019 Active capsuleIndications: mouth 3 (three) Peripheral times daily. polyneuropathy documented as of this encounter (statuses as of 06/08/2019) Active Problems Problem Noted Date Morbid obesity [...] as of this encounter (statuses as of 06/08/2019) Immunizations Name Administration Dates Next Due Heamophilus [...] Sign Reading Time Taken Comments Blood Pressure 121/80 06/08/2019 9:13 AM CDT Pulse 120 06/08/2019 9:13 AM CDT Temperature - - Respiratory Rate 19 06/08/2019 9:13 AM CDT Oxygen Saturation 94% 06/08/2019 9:13 AM CDT Inhaled Oxygen Concentration - - Weight 108.8 kg (239 lb 12.8 oz) 06/08/2019 9:13 AM CDT Height 167.6 cm (5' 6") 06/08/2019 9:13 AM CDT Body Mass Index 38.7 06/08/2019 9:13 AM CDT documented in this encounter Progress Notes Gracie Booth, - 06/08/2019 11:00 AM CDT PCP: Carin Abernathy Reason for Visit: asthma History of Present Illness Linda Rahman is a 42 year old female with past medical hx as below here for follow up of asthma. Since last visit, symptoms are stable. She has nighttime symptomsonce a months. Uses inhaler 2-3 times per day. Uses Flovent daily. Continues to have some shortness of breath with exertion but does not really limit her activities at home. No progress with weight loss. Hx of non compliance with CPAP still not interested in CPAP therapy. Past Histories: I have reviewed and updated the following as appropriate: past medical history, pastsurgical history, family history, social history. Review of Systems: Constitutional: - fever, - chills, - diaphoresis, - activity change, - appetite change, + fatigue, - unexpected weight change. HENT: + congestion, - facial swelling, - postnasal drip, - rhinorrhea, - sinus pressure, - sneezing,- sore throat, - trouble swallowing, - voice change. Eyes: - photophobia, - pain, - discharge, - redness, - itching, - visual disturbance. Respiratory: - apnea, + cough, - choking, - chest tightness, - shortness of breath, - wheezing, - stridor. Cardiovascular: - chest pain, - palpitations, - leg swelling. Gastrointestinal: - nausea, - vomiting, - abdominal pain, - diarrhea, - constipation, - abdominal distention. Genitourinary:- urgency, - frequency, - decreased urine volume, - difficulty urinating Musculoskeletal: - myalgias, - back pain, - joint swelling, - arthralgias. Skin: - rash. Neurological: - dizziness, - syncope, - weakness, - light-headedness, - numbness and headaches. Psychiatric/Behavioral: - behavioral problems, + sleep disturbance, - nervous/ anxious. Hematological: - adenopathy, - cold intolerance, - heat intolerance, - bruise/ bleed easily. Endocrine: - cold intolerance, - heat intolerance, - polydipsia Physical Exam and Objective Data BP 121/80 (BP Location: Right arm, Patient Position: Sitting, BP CUFF SIZE: Adult Large) | Pulse 120 | Resp 19 | Ht 5' 6" (1.676 m) | Wt 239 lb 12.8 oz (108.8 kg) | SpO2 94% | BMI 38.70 kg/m Consitutional: patient alert and in no acute distress, obese Head: normocephalic and atraumatic Eye: normal external eye, corneas clear, conjunctiva and sclera normal and pupils equal, round, reactive to light and accomodation Oropharynx: moist mucus membranes, no erythema or tonsillar enlargement, posterior pharynx clear and lips, teeth and gums normal. Mallampati score 4. Cardiovascular: regular rate and rhythm, no murmur Respiratory: clear to auscultation bilaterally Gastrointestinal: soft, non-tender, non-distended Musculoskeletal: Trace pitting edema. No clubbing or cyanosis, Periph pulses equal Neurologic: normal gait and station, normal range, central nerves II - XII intact Skin: skin color, texture and turgor are normal; no bruising, rashes or lesions noted Lymphatic: No appreciable supraclavicular, submandibular or axillary LAD appreciable Laboratory Results Reviewed: PFTs reviewed and interpreted from 2016: no evidence of air flow limitation. CXR reviewed, compared with previous CXRs and interpreted from 08/12: normal appearence. Assessment & Plan Linda Rahman is a 42 year old female with mild persistent asthma well controlled and MJ. Other issues morbid obesity. Encounter Diagnoses Name Primary? Moderate persistent asthma without complication Yes Morbid obesity Chronic diastolic heart failure MJ (obstructive sleep apnea) Plan: 1. Continue with albuterol and Flovent, we went over inhaler technique and rinsing mouth after flovent 2. Discussed importance of weight loss 3. Discussed importance of CPAP but patient is not interested at this time. Informed patient of critical need for CPAP and told patient to think about it and let us know if and when she is interested in restarting 4. Discussed evidence of mild volume overload, dicussed avoiding salt and salt rich foods which she states she does 5. Follow up 6 months 9: 47 AM CDTdocumented in this encounter Plan of Treatment Date Type Specialty Care Team Description 07/10/2019 Office Visit Family Medicine Carin Abernathy MD [address] [place] [address] [phone] 07/27/2019 Office Visit Endocrinology Diabetes [facility] [address] [place] [address] [address] [place] [address] [phone] 09/25/2019 Office Visit Cardiology Ricardo Dyer MD [address] [place] [address] 10/08/2019 Office Visit Oncology Daphney Calderon, LAST [address] [place] [address] [phone] 10/11/2019 Office Visit Neurology Kath Farr MD [facility] [place], [place] [address] 11/16/2019 Office Visit Pulmonary Disease Gracie Booth DO [address] [place] [phone] 01/30/2020 Office Visit Obstetrics & Gynecology Netta Rausch PA-C [address] [facility] [address] [place] [phone] 04/23/2020 Office Visit Urology Corry Shen FNP [address] [facility] [address] [place] [address] Health Maintenance Due Date Last Done Comments [...] filedocumented in this encounter Visit Diagnoses Diagnosis Moderate persistent asthma without complication - Primary Unspecified asthma Morbid obesity Chronic diastolic heart failure MJ (obstructive sleep apnea) Obstructive sleep apnea (adult) (pediatric) documented in this encounter Insurance Payer Benefit Plan / Subscriber ID Effective Phone Address Type Group Dates [facility] [id number] 2017-Pres Medicare HEALTHCARE - HEALTHCARE ent Adv HMO MANAGED DUAL COMPLETE MEDICARE HMO [place] MEDICAID OF xxxxxxxxx 2016-Pre [phone] Medicaid [place] sent [id number] [place] [address] (Home) [address] [phone] [place], [place] (Work) [id number] documented as of this encounter Advance Directives Name Relationship Healthcare Agent Communication Relationship Laura Olivia Mother Primary healthcare agent Kei Rahman Father First [facility] [phone] agent (Mobile)
--- OUTSIDE RECORDS SUMMARY | 2019-11-03 16:24 | XMS REPORT | Summary of Care ---
:1975 Author Organization [facility] Address [address] [place] [address] Care Team Providers Name Role Phone Carin Abernathy MD Primary Care Provider Leslee Diamond Unavailable Unavailable Ricardo Dyer MD Unavailable Reason for Visit Reason Comments Follow-up Asthma Encounter Details Date Type Department Care Team Description 06/08/2019 Office Visit [facility] ADC Gracie Booth DO Moderate persistent asthma without complication (Primary Dx); Pulmonary Clinic [address] [facility] Morbid obesity; [address] [place] [address] , [facility] Chronic diastolic heart failure; [address] [place], [place] MJ (obstructive sleep apnea) [place] [address] Allergies Active Allergy Reactions [...] Visit Family Medicine Carin Abernathy MD [address] [facility] [address] [place] [address] [phone] 07/27/2019 Office Visit Endocrinology Diabetes & [facility] [address] [place] [address] [address] [place] [address] [phone] 09/25/2019 Office Visit Cardiology Ricardo Dyer MD [address] [facility] [address] [place] [address] 10/08/2019 Office Visit Oncology Daphney Calderon, LAST [address] [place] [address] [phone] 10/11/2019 Office Visit Neurology Kath Farr MD [facility] [place], [place] [address] 11/16/2019 Office Visit Pulmonary Disease Gracie Booth DO [address] [place] [phone] 01/30/2020 Office Visit Obstetrics & Gynecology Netta Rausch PA-C [address] [facility] [address] [place] [phone] 04/23/2020 Office Visit Urology Corry Shen FNP [address] [facility] [address] [place] [address] Health Maintenance Due Date Last [...] ID Effective Phone Address Type Group Dates [facility] [id number] 2017-Pres Medicare HEALTHCARE - HEALTHCARE ent Adv HMO MANAGED DUAL COMPLETE MEDICARE HMO [place] MEDICAID OF xxxxxxxxx 2016-Pre [phone] Medicaid [place] sent [id number] [place] [address] (Home) [address] [phone] [place], [place] (Work) [id number] documented as of this encounter Advance Directives Name Relationship Healthcare Agent Communication Relationship Laura Olivia Mother Primary healthcare agent Kei Rahman Father First [facility] healthcare [phone] agent (Mobile)
--- OUTSIDE RECORDS SUMMARY | 2019-11-03 16:25 | XMS REPORT | Clinical Summary ---
:1975 Author Organization [facility] Address [address] [place] [address] Care Team Providers Name Role Phone Carin Abernathy MD Primary Care Provider Leslee Diamond CNM Unavailable Unavailable Ricardo Dyer MD Unavailable Allergies [...] Active ACID/EPA (FISH OIL mouth daily. ORAL) cyanocobalamin 1 mL by 30 mL 0 04/11/2018 Active (VITAMIN B-12) 1,000 Intramuscular mcg/mL route every 2 injectionIndications: (two) weeks. B12 deficiency FERROUS SULFATE 325 TAKE ONE TABLET BY 90 tablet 5 05/08/2018 Active mg (65 mg iron) MOUTH THREE TIMES tabletIndications: DAILY WITH MEALS Acquired hemolytic anemia albuterol (PROAIR Inhale 2 Puffs 8.5 g 11 07/03/2018 Active HFA) 90 mcg/actuation every 6 (six) inhaler hours as needed for Wheezing or Shortness of Breath. levothyroxine 50 mcg TAKE 1 TABLET BY [...] bacterial sinusitis, URI with cough and congestion amitriptyline 50 mg Take 1 tablet by [...] Take 1 capsule by 90 capsule 5 07/04/2019 Active capsuleIndications: mouth 3 (three) Peripheral times daily. polyneuropathy cyclobenzaprine 5 mg Take one tab every 90 tablet 3 07/17/2019 Active tabletIndications: 8 hours as needed Tension headache LOSARTAN 50 mg tablet TAKE 1 TABLET BY 180 tablet 1 08/15/2019 Active MOUTH TWICE DAILY . APPOINTMENT REQUIRED FOR FUTURE REFILLS Hospital, Clinic, or Other Ordered Dose Route Frequency Start Date End Date Status Facility Administered Medication medroxyPROGESTERone 150 mg IM ONCE 08/10/2019 08/10/2019 Ended (DEPO-PROVERA) injection 150 mg Active Problems Problem Noted Date [...] Encounters Date Type Specialty Care Team Description 08/15/2019 Refill Cardiology Gomez Sendlarissa Refill Request MD Kaley 08/10/2019 Nurse Visit Obstetrics & Netta Rausch, [facility] PA-Bill Depo-Provera Nurse, [facility] contraception Women's Health (Primary Dx) 08/09/2019 Refill Pulmonary Disease Gracie Booth DO Refill Request 08/06/2019 [facility] Radiology Mateo De La Torre MD 08/06/2019 Orders Only Doctor Unassigned, [place] 07/27/2019 Office Visit Endocrinology Mateo De La Torre Thyroid nodule ( Primary Dx); Diabetes & Metabolism MD Dulce Maria Hypothyroidism, unspecified type 07/16/2019 Refill Neurology Kath Farr MD Refill Request 07/16/2019 Telephone Family Calvin Abernathy, Rx Concern/Question Carin Adams MD 07/10/2019 Office Visit Family Calvin Abernathy, Essential hypertension ( Primary Dx); Carin Adams MD Acquired hypothyroidism; Mixed hyperlipidemia; Obesity (BMI 30-39.9); Nutritional counseling; Exercise counseling; Medication monitoring encounter; Encounter for long-term (current) use of medications; Peripheral polyneuropathy; Diabetes mellitus screening; Bilateral impacted cerumen; Decreased hearing of both ears 07/04/2019 Orders Only Doctor Unassigned, [place] 07/04/2019 Refill Family Calvin Abernathy, Refill Request Carin Adams MD 06/18/2019 Office Visit Family Calvin Abernathy, Left ear pain (Primary Dx) ; Carin Adams MD Bilateral hearing loss due to cerumen impaction; Bilateral impacted cerumen 06/08/2019 Office Visit Pulmonary Disease Gracie Booth DO Moderate persistent asthma without complication (Primary Dx); Morbid obesity; Chronic diastolic heart failure; MJ (obstructive sleep apnea) 06/05/2019 Refill Family Medicine [place], Refill Request Carin Adams MD 05/24/2019 Telephone Family Medicine [place], Assessment (Triage ) Carin Adams MD from Last 3 Months Immunizations Name Administration Dates Next Due Heamophilus Influenza B 11/13/2015 Influenza Virus Vaccine 07/04/2019 Influenza Virus Vaccine Quad ID [id number] [...] Reading Time Taken Comments Blood Pressure 126/80 08/10/2019 8:56 AM CASH CLERK Pulse 103 08/10/2019 8:56 AM CASH CLERK Temperature 36.8 C (98.2 F) 08/10/2019 8:56 AM CASH CLERK Respiratory Rate 18 08/10/2019 8:56 AM CASH CLERK Oxygen Saturation 98% 07/27/2019 9:29 AM CDT Inhaled Oxygen Concentration - - Weight 109.8 kg (242 lb) 08/10/2019 8:56 AM CASH CLERK Height 157.5 cm (5' 2") 08/10/2019 8:56 AM CASH CLERK Body Mass Index 44.26 08/10/2019 8:56 AM CASH CLERK Plan of Treatment Date Type Specialty Care Team Description 09/25/2019 Office Visit Cardiology Ricardo Dyer MD [address] [facility] [address] [place] [phone] 10/08/2019 Office Visit Oncology Daphney Calderon, LAST [address] [place] [address] [phone] 10/11/2019 Office Visit Neurology Kath Farr MD [address] [place] [address] [phone] 11/09/2019 Nurse Visit Obstetrics & Gynecology Nurse, [facility] Women's Health 11/16/2019 Office Visit Pulmonary Disease Gracie Booth DO [address] [place] [phone] 01/10/2020 Office Visit Family Medicine Carin Abernathy MD [address] [place] [address] [place] [phone] 01/30/2020 Office Visit Obstetrics & Gynecology Netta Rausch, CLAUDIA [address] [facility] [address] [place] [address] 04/23/2020 Office Visit Urology Corry Shen FNP [address] [facility] [address] [facility] [address] [place], [place] [phone] 08/01/2020 Office Visit Endocrinology Diabetes & Mateo De La Torre MD Metabolism [address] [place] [address] 208 [place], [place] 266285 Health Maintenance Due Date Last Done Comments Breast Cancer Screening (MAMMOGRAM) 02/09/2020 02/08/2019, 02/01/2018 PAP SMEAR 01/30/2024 01/29/2019, 10/31/2015 DTaP,Tdap,and Td Vaccines (2 - Td) 10/31/2025 10/31/2015 PNEUMOCOCCAL 0-64 YEARS COMBINED Completed 03/07/2016, 04/01/2014 SERIES INFLUENZA VACCINE Completed 07/04/2019, 06/30/2018, 08/05/2016 Procedures Procedure Name Priority Date/Time Associated Diagnosis Comments POCT TEST Routine 08/10/2019 Surveillance for Results for this Depo-Provera procedure are in contraception the results section. US HEAD NECK Routine 08/06/2019 3:41 Thyroid nodule Results for this PM CASH CLERK procedure are in the results section. CONSENT/REFUSAL FOR Routine 08/06/2019 3:01 DIAGNOSIS AND PM CASH CLERK TREATMENT ASSIGNMENT OF Routine 08/06/2019 3:00 BENEFITS PM CASH CLERK VACCINATIONS - Routine 07/04/2019 12:01 CONSENTS, AM CDT ELIGIBILITY, HISTORY from Last 3 Months Results POCT TEST (08/10/2019) POCT PREG Negative On board controls acceptable Yes with C Line POCT PREG LOT # POCT PREG TEST DATE Specimen Urine - URINE, CLEAN CATCH US HEAD NECK (08/06/2019 3:41 PM CASH CLERK) Specimen Impressions Performed At PACS/VR/DOSE Multiple thyroid nodules as described above. Some of these nodules meet the ACR criteria for 1 year follow-up. --- ----- ACR TI-RADS recommendations * TR5 (?7 points) -FNA if ? 1cm, follow-up if 0.5 -0.9 cm every year for 5 years * TR4 (4-6 points) -FNA if ? 1.5cm, follow-up if 1 -1.4 cm in 1, 2, 3 and 5 years * TR3 (3 points)-FNA if ? 2.5cm, follow-up if 1.5 -2.4 cm in 1, 3 and 5 years * TR2 (2 points) & TR1 (0 points) -No FNA or follow-up Narrative Performed At * * * * * * * * ORIGINAL REPORT * * * * * * * * PACS/VR/DOSE THYROID ULTRASOUND ACR TI-RADS INDICATION: 43 y/o lady with thyroid nodule, last biopsy nondiagnostic. following size and consistency of nodule. TECHNIQUE: Ultrasound examination of the thyroid and adjacent soft tissues was performed. FINDINGS: The thyroid gland is normal in size with heterogeneous echotexture and normal color Doppler flow. The isthmus measures 0.5 cm. The right thyroid lobe measures 5.5 x 1.7 x 2.2 cm with volume of 11.2 mL. . The left thyroid lobe measures 4.4 x 2.0 x 1.6 cm with volume of 7.3 mL. . Estimated total number of nodules ?1cm: 3 . Number of spongiform nodules ?2cm not described below (TR1): 0. Number of mixed cystic and solid nodules ?1.5cm not described below (TR2): 0 . Nodule#: 1 * Maximum size:1.7 x 1.3 x 1.7 cm. * Location: Mid - Right thyroid lobe . * Composition: Cystic/almost completely cystic (0) . * Echogenicity: Hypoechoic (2) . * Shape: Not taller than wide (0) . * Margins: Smooth (0) . * Echogenic foci: None (0) . * ACR TI-RADS total points: 2 . * ACR TI-RADS risk category: TR 2 (2 points) . * ACR TI-RADS recommendation: Follow-up ultrasound in 1 year . * Nodule#: 2 * Maximum size:1.0 x 0.6 x 0.7 cm. * Location: Lower - Right thyroid lobe . * Composition: Solid/almost completely solid (2) . * Echogenicity: Hypoechoic (2) . * Shape: Not taller than wide (0) . * Margins: Ill defined (0) . * Echogenic foci: None (0) . * ACR TI-RADS total points: 4 . * ACR TI-RADS risk category: TR 4 (4-6 points) . * ACR TI-RADS recommendation: Follow-up ultrasound in 1 year . * _Nodule#: 3 * Maximum size:0.7 x 0.6 x 0.6 cm. * Location: Lower - Right thyroid lobe . * Composition: Solid/almost completely solid (2) . * Echogenicity: Hypoechoic (2) . * Shape: Not taller than wide (0) . * Margins: Ill defined (0) . * Echogenic foci: None (0) . * ACR TI-RADS total points: 4 . * ACR TI-RADS risk category: TR 4 (4-6 points) . * ACR TI-RADS recommendation: No further follow-up * . _Nodule#: 4 * Maximum size:1.0 x 0.7 x 0.8 cm. * Location: Mid - Right thyroid lobe . * Composition: Solid/almost completely solid (2) . * Echogenicity: Hyperechoic (1) . * Shape: Not taller than wide (0) . * Margins: Smooth (0) . * Echogenic foci: None (0) . * ACR TI-RADS total points: 3 . * ACR TI-RADS risk category: TR 3 (3 points) . * ACR TI-RADS recommendation: No further follow-up Nodule#: 5 * Maximum size:1.0 x 0.9 x 0.8 cm. * Location: Mid - Left thyroid lobe . * Composition: Solid/almost completely solid (2) . * Echogenicity: Hyperechoic (1) . * Shape: Not taller than wide (0) . * Margins: Smooth (0) . * Echogenic foci: None (0) . * ACR TI-RADS total points: 3 . * ACR TI-RADS risk category: TR 3 (3 points) . * ACR TI-RADS recommendation: No further follow-up Nodule#: 3 * Maximum size:0.6 x 0.9 x 0.6 cm. * Location: Lower - Left thyroid lobe . * Composition: Solid/almost completely solid (2) . * Echogenicity: Hyperechoic (1) . * Shape: Taller than wide (3) . * Margins: Smooth (0) . * Echogenic foci: None (0) . * ACR TI-RADS total points: 6 . * ACR TI-RADS risk category: TR 4 (4-6 points) . * ACR TI-RADS recommendation: Follow-up ultrasound in 1 year . Procedure Note [facility], Radiant Results Inft User - 08/06/2019 3:59 PM CASH CLERK * * * * * * * * ORIGINAL REPORT * * * * * * * * THYROID ULTRASOUND ACR TI-RADS INDICATION: 43 y/o lady with thyroid nodule, last biopsy nondiagnostic. following size and consistency of nodule. TECHNIQUE: Ultrasound examination of the thyroid and adjacent soft tissues was performed. FINDINGS: The thyroid gland is normal in size with heterogeneous echotexture and normal color Doppler flow. The isthmus measures 0.5 cm. The right thyroid lobe measures 5.5 x 1.7 x 2.2 cm with volume of 11.2 mL. . The left thyroid lobe measures 4.4 x 2.0 x 1.6 cm with volume of 7.3 mL. . Estimated total number of nodules ?1cm: 3 . Number of spongiform nodules ?2cm not described below (TR1): 0. Number of mixed cystic and solid nodules ?1.5cm not described below (TR2): 0 . Nodule#: 1 * Maximum size:1.7 x 1.3 x 1.7 cm. * Location: Mid - Right thyroid lobe . * Composition: Cystic/almost completely cystic (0) . * Echogenicity: Hypoechoic (2) . * Shape: Not taller than wide (0) . * Margins: Smooth (0) . * Echogenic foci: None (0) . * ACR TI-RADS total points: 2 . * ACR TI-RADS risk category: TR 2 (2 points) . * ACR TI-RADS recommendation: Follow-up ultrasound in 1 year . * Nodule#: 2 * Maximum size:1.0 x 0.6 x 0.7 cm. * Location: Lower - Right thyroid lobe . * Composition: Solid/almost completely solid (2) . * Echogenicity: Hypoechoic (2) . * Shape: Not taller than wide (0) . * Margins: Ill defined (0) . * Echogenic foci: None (0) . * ACR TI-RADS total points: 4 . * ACR TI-RADS risk category: TR 4 (4-6 points) . * ACR TI-RADS recommendation: Follow-up ultrasound in 1 year . * _Nodule#: 3 * Maximum size:0.7 x 0.6 x 0.6 cm. * Location: Lower - Right thyroid lobe . * Composition: Solid/almost completely solid (2) . * Echogenicity: Hypoechoic (2) . * Shape: Not taller than wide (0) . * Margins: Ill defined (0) . * Echogenic foci: None (0) . * ACR TI-RADS total points: 4 . * ACR TI-RADS risk category: TR 4 (4-6 points) . * ACR TI-RADS recommendation: No further follow-up * . _Nodule#: 4 * Maximum size:1.0 x 0.7 x 0.8 cm. * Location: Mid - Right thyroid lobe . * Composition: Solid/almost completely solid (2) . * Echogenicity: Hyperechoic (1) . * Shape: Not taller than wide (0) . * Margins: Smooth (0) . * Echogenic foci: None (0) . * ACR TI-RADS total points: 3 . * ACR TI-RADS risk category: TR 3 (3 points) . * ACR TI-RADS recommendation: No further follow-up Nodule#: 5 * Maximum size:1.0 x 0.9 x 0.8 cm. * Location: Mid - Left thyroid lobe . * Composition: Solid/almost completely solid (2) . * Echogenicity: Hyperechoic (1) . * Shape: Not taller than wide (0) . * Margins: Smooth (0) . * Echogenic foci: None (0) . * ACR TI-RADS total points: 3 . * ACR TI-RADS risk category: TR 3 (3 points) . * ACR TI-RADS recommendation: No further follow-up Nodule#: 3 * Maximum size:0.6 x 0.9 x 0.6 cm. * Location: Lower - Left thyroid lobe . * Composition: Solid/almost completely solid (2) . * Echogenicity: Hyperechoic (1) . * Shape: Taller than wide (3) . * Margins: Smooth (0) . * Echogenic foci: None (0) . * ACR TI-RADS total points: 6 . * ACR TI-RADS risk category: TR 4 (4-6 points) . * ACR TI-RADS recommendation: Follow-up ultrasound in 1 year . IMPRESSION Multiple thyroid nodules as described above. Some of these nodules meet the ACR criteria for 1 year follow-up. ----- ACR TI-RADS recommendations * TR5 (?7 points) -FNA if ? 1cm, follow-up if 0.5 -0.9 cm every year for 5 years * TR4 (4-6 points) -FNA if ? 1.5cm, follow-up if 1 -1.4 cm in 1, 2, 3 and 5 years * TR3 (3 points)-FNA if ? 2.5cm, follow-up if 1.5 -2.4 cm in 1, 3 and 5 years * TR2 (2 points) & TR1 (0 points) -No FNA or follow-up Performing Organization Address City/State/Zipcode Phone Number PACS/VR/DOSE CONSENT/REFUSAL FOR DIAGNOSIS AND TREATMENT (08/06/2019 3:01 PM CASH CLERK) Specimen Performing Organization Address City/State/Zipcode Phone Number HIM ASSIGNMENT OF BENEFITS (08/06/2019 3:00 PM CASH CLERK) Specimen Performing Organization Address City/State/Zipcode Phone Number HIM VACCINATIONS - CONSENTS, ELIGIBILITY, HISTORY (07/04/2019 12:01 AM CDT) Specimen Performing Organization Address City/State/Zipcode Phone Number HIM from Last 3 Months Insurance Payer Benefit Plan / Subscriber ID Effective Phone Address Type Group Dates [facility] [id number] 2017-Pre Medicare Adv HEALTHCARE - HEALTHCARE sent HMO MANAGED DUAL COMPLETE MEDICARE HMO [facility] MEDICAID OF xxxxxxxxx 2016-Pr [phone] Medicaid [place] esent [id number] [facility] [place] [address] [employer] [id number] 2017-Pre [address] [facility] sent [id number] [place] [address] [address] [phone] [place], [place] (Work) [address] Linda [facility] Self [address] [place] [address] (Home) [address] [phone] [place], [place] (Work) [id number] Advance Directives Name Relationship Healthcare Agent Communication Relationship Delchristiano Olivia Mother Primary healthcare agent Kei Rahman Father First [facility] [phone] agent (Mobile)
--- OUTSIDE RECORDS SUMMARY | 2019-11-03 16:26 | XMS REPORT | Clinical Summary ---
:1975 Author Organization [facility] Address [address] [place] [phone] Care Team Providers Name Role Phone Carin [...] Rausch, [facility] PA-Bill Depo-Provera Nurse, [facility] contraception Women's Health (Primary Dx) 08/09/2019 Refill Pulmonary Disease Gracie Booth DO Refill Request 08/06/2019 [facility] Radiology Mateo De La Torre MD 08/06/2019 Orders Only Doctor Unassigned, [place] 07/27/2019 Office Visit Endocrinology Mateo De La [...] both ears 07/04/2019 Orders Only Doctor Unassigned, [place] 07/04/2019 Refill Family Calvin Abernathy, Refill Request [...] Comments Blood Pressure 126/80 08/10/2019 8:56 AM RANCH MANAGER Pulse 103 08/10/2019 8:56 AM RANCH MANAGER Temperature 36.8 C (98.2 F) 08/10/2019 8:56 AM RANCH MANAGER Respiratory Rate 18 08/10/2019 8:56 AM RANCH MANAGER Oxygen Saturation 98% 07/27/2019 9:29 AM CDT Inhaled Oxygen Concentration - - Weight 109.8 kg (242 lb) 08/10/2019 8:56 AM RANCH MANAGER Height 157.5 cm (5' 2") 08/10/2019 8:56 AM RANCH MANAGER Body Mass Index 44.26 08/10/2019 8:56 AM RANCH MANAGER Plan of Treatment Date Type Specialty Care Team Description 09/25/2019 Office Visit Cardiology Ricardo Dyer MD [address] [facility] [address] [place] [phone] 10/08/2019 Office Visit Oncology Daphney Calderon, LAST [address] [place] [address] [phone] 10/11/2019 Office Visit Neurology Kath Farr MD [address] [place] [phone] 11/09/2019 Nurse Visit Obstetrics & Gynecology Nurse, [facility] Women's Health 11/16/2019 Office Visit Pulmonary Disease Gracie Booth DO [address] [place] [phone] 01/10/2020 Office Visit Family Medicine Carin Abernathy MD [address] [place] [address] [place] [phone] 01/30/2020 Office Visit Obstetrics & Gynecology Netta Rausch, CLAUDIA [address] [facility] [address] [place] [phone] 04/23/2020 Office Visit Urology Corry Shen FNP [address] [facility] [address] [facility] 102 [place], [place] [phone] 08/01/2020 Office Visit Endocrinology Diabetes & Mateo De La Torre MD Metabolism [address] [place] [address] 208 [place], [place] [phone] Health Maintenance Due Date Last Done Comments [...] 3:41 Thyroid nodule Results for this PM RANCH MANAGER procedure are in the results section. CONSENT/REFUSAL FOR Routine 08/06/2019 3:01 DIAGNOSIS AND PM RANCH MANAGER TREATMENT ASSIGNMENT OF Routine 08/06/2019 3:00 BENEFITS PM RANCH MANAGER VACCINATIONS - Routine 07/04/2019 12:01 CONSENTS, AM CDT ELIGIBILITY, HISTORY from Last 3 Months Results POCT TEST (08/10/2019) POCT PREG Negative On board controls acceptable Yes with C Line POCT PREG LOT # POCT PREG TEST DATE Specimen Urine - URINE, CLEAN CATCH US HEAD NECK (08/06/2019 3:41 PM RANCH MANAGER) Specimen Impressions Performed At PACS/VR/DOSE Multiple thyroid [...] Results Inft User - 08/06/2019 3:59 PM RANCH MANAGER * * * * * * * [...] FOR DIAGNOSIS AND TREATMENT (08/06/2019 3:01 PM RANCH MANAGER) Specimen Performing Organization Address City/State/Zipcode Phone Number HIM ASSIGNMENT OF BENEFITS (08/06/2019 3:00 PM RANCH MANAGER) Specimen Performing Organization Address City/State/Zipcode Phone Number HIM VACCINATIONS - CONSENTS, ELIGIBILITY, HISTORY (07/04/2019 12:01 AM CDT) Specimen Performing Organization Address City/State/Zipcode Phone Number HIM from Last 3 Months Insurance Payer Benefit Plan / Subscriber ID Effective Phone Address Type Group Dates [facility] [id number] 2017-Pre Medicare Adv HEALTHCARE - HEALTHCARE sent HMO MANAGED DUAL COMPLETE MEDICARE HMO [facility] MEDICAID OF xxxxxxxxx 2016-Pr [phone] Medicaid [place] esent [id number] [place] [address] [employer] [id number] 2017-Pre [address] BOX [facility] sent [id number] [place] [address] [address] [phone] [place] (Work) [phone] Linda [facility] Self [address] [place] [address] (Home) [address] [phone] [place], [place] (Work) [phone] Advance Directives Name Relationship Healthcare Agent Communication Relationship Delchristiano Olivia Mother Primary healthcare agent Kei Rahman Father First [facility] healthcare [phone] agent (Mobile)
--- OUTSIDE RECORDS SUMMARY | 2019-11-03 16:26 | XMS REPORT | Clinical Summary ---
:1975 Author Organization [facility] Address [address] [place] [address] Care Team Providers Name Role Phone Carin Abernathy MD Primary Care Provider Leslee Diaomnd CNM Unavailable Unavailable Ricadro Dyer MD Unavailable Allergies Active Allergy Reactions [...] tabletIndications: DAILY WITH MEALS Acquired hemolytic anemia levothyroxine 50 mcg TAKE 1 TABLET BY [...] Active tabletIndications: mouth at bedtime. Tension headache rosuvastatin 10 mg Take 1 tablet by 90 tablet 1 05/07/2019 Active tabletIndications: mouth at bedtime. Mixed hyperlipidemia pregabalin 75 mg Take 1 capsule by 90 capsule 5 07/04/2019 Active capsuleIndications: mouth 3 (three) Peripheral times daily. polyneuropathy cyclobenzaprine 5 mg Take one tab every 90 tablet 3 07/17/2019 Active tabletIndications: 8 hours as needed Tension headache PROAIR HFA 90 INHALE 2 PUFFS BY 9 Each 11 09/04/2019 Active mcg/actuation inhaler MOUTH EVERY 6 HOURS NEEDED FOR SHORTNESS OF BREATH OR WHEEZING LOSARTAN 50 mg tablet TAKE 1 TABLET BY 180 tablet 1 08/15/2019 Active MOUTH TWICE DAILY . APPOINTMENT REQUIRED FOR FUTURE REFILLS citalopram 40 mg Take 1 tablet by 30 tablet 0 2019 Active tabletIndications: mouth daily. MDD (recurrent major depressive disorder) in remission, Anxiety disorder due to medical condition busPIRone 10 mg Take 2 tablets by 120 tablet 0 2019 Active tabletIndications: mouth 2 (two) Anxiety disorder due times daily. to medical condition Active Problems Problem Noted Date Morbid obesity [...] Specialty Care Team Description 08/15/2019 Refill Cardiology Ricardo Dyer Refill Request MD [place] 08/10/2019 Nurse Visit Obstetrics & Netta Rausch, Surveillance for Gynecology PA-C Depo-Provera Nurse, Kevin contraception Women's Health (Primary Dx) 08/10/2019 Orders Only Doctor Unassigned, [place] 08/09/2019 Refill Pulmonary Disease Gracie Booth DO Refill Request 08/06/2019 Hospital Radiology Mateo De La Torre MD 08/06/2019 Orders Only Doctor Unassigned, [place] 07/27/2019 Office Visit Endocrinology Mateo De La Torre Thyroid nodule ( Primary Dx); Diabetes & Metabolism MD Dulce Maria Hypothyroidism, unspecified type 07/16/2019 Refill Neurology Kath Farr MD Refill Request 07/16/2019 Telephone Family Calvin Abrenathy, Rx Concern/Question Carin Adams MD 07/10/2019 Office Visit Family Calvin Abernathy, Essential hypertension ( Primary Dx); Carin Adams MD Acquired hypothyroidism; Mixed hyperlipidemia; Obesity (BMI 30-39.9); Nutritional counseling; Exercise counseling; Medication monitoring encounter; Encounter for long-term (current) use of medications; Peripheral polyneuropathy; Diabetes mellitus screening; Bilateral impacted cerumen; Decreased hearing of both ears 07/04/2019 Orders Only Doctor Unassigned, [place] 07/04/2019 Refill Family Calvin Abernathy, Refill Request Carin Adams MD 06/18/2019 Office Visit Family Calvin Abernathy, Left ear pain (Primary Dx) ; Carin Adams MD Bilateral hearing loss due to cerumen impaction; Bilateral impacted cerumen from Last 3 Months Immunizations Name Administration Dates Next Due Heamophilus Influenza B 11/13/2015 Influenza Virus Vaccine 07/04/2019 Influenza Virus Vaccine Quad ID 18-64 YRS 06/15/2017 Influenza Virus Vaccine Quad IM 3+ YRS 06/30/2018 Influenza Virus Vaccine Quad IM Multi-dose 6+ MO 08/05/2016 Influenza Virus Vaccine Recomb Quad IM, Preserv and 07/04/2019 ABX Free 18-64 YRS Meningococcal B, OMV 03/07/2016 Meningococcal Polysaccharide (groups A, C, Y and 11/12/2015 W-135) conjugate vaccine (MCV4P) Pneumococcal 13 Conjugate, PCV13 (Prevnar 13) 03/07/2016 Pneumococcal Polysaccharide, PPSV23 (PNEUMOVAX) 08/10/2019, 04/01/2014 TDAP (ADACEL) VACCINE 08/10/2019 Tdap 10/31/2015 Family History Medical History Relation [...] Comments Blood Pressure 126/80 08/10/2019 8:56 AM [employer] Pulse 103 08/10/2019 8:56 AM [employer] Temperature 36.8 C (98.2 F) 08/10/2019 8:56 AM [employer] Respiratory Rate 18 08/10/2019 8:56 AM [employer] Oxygen Saturation 98% 07/27/2019 9:29 AM CDT Inhaled Oxygen Concentration - - Weight 109.8 kg (242 lb) 08/10/2019 8:56 AM [employer] Height 157.5 cm (5' 2") 08/10/2019 8:56 AM [employer] Body Mass Index 44.26 08/10/2019 8:56 AM [employer] Plan of Treatment Date Type Specialty Care Team Description 10/08/2019 Office Visit Oncology Daphney Calderon NP [address] [place] [address] [phone] 10/16/2019 Office Visit Cardiology Ricardo Dyer MD [address] [place] [address] [phone] 11/09/2019 Nurse Visit Obstetrics & Gynecology Nurse, [facility] 11/16/2019 Office Visit Pulmonary Disease Gracie Booth DO [address] [place] [phone] 01/04/2020 Office Visit Neurology Kath Farr MD [address] [place] [address] 01/10/2020 Office Visit Family Medicine Carin Abernathy MD [address] [place] [address] [place] [phone] 01/30/2020 Office Visit Obstetrics & Gynecology Netta Rausch PA-C [address] [place] [phone] 04/23/2020 Office Visit Urology Corry Shen FNP [address] [place] [address] 08/01/2020 Office Visit Endocrinology Diabetes & Mateo De La Torre MD [address] [phone] Health Maintenance Due Date Last Done Comments Breast Cancer Screening 02/09/2020 02/08/2019, 02/01/2018 (MAMMOGRAM) PAP SMEAR 01/30/2024 01/29/2019, 10/31/2015 DTaP,Tdap,and Td Vaccines (3 - Td) 08/10/2029 08/10/2019, 10/31/2015 INFLUENZA VACCINE Completed 07/04/2019, 07/04/2019, 06/30/2018, Additional history exists PNEUMOCOCCAL 0-64 YEARS COMBINED Completed 08/10/2019, 03/07/2016, SERIES 04/01/2014 Procedures Procedure Name Priority Date/Time Associated Diagnosis Comments IMMTRAC2 CONSENT Routine 08/10/2019 12:01 AM [employer] POCT TEST Routine 08/10/2019 Surveillance for Results for this Depo-Provera procedure are in contraception the results section. US HEAD NECK Routine 08/06/2019 3:41 Thyroid nodule Results for this PM [employer] procedure are in the results section. CONSENT/REFUSAL FOR Routine 08/06/2019 3:01 DIAGNOSIS AND PM [employer] TREATMENT ASSIGNMENT OF Routine 08/06/2019 3:00 BENEFITS PM [employer] VACCINATIONS - Routine 07/04/2019 12:01 CONSENTS, AM CDT ELIGIBILITY, HISTORY from Last 3 Months Results IMMTRAC2 CONSENT (08/10/2019 12:01 AM [employer]) Specimen Performing Organization Address City/State/Zipcode Phone Number HIM POCT TEST (08/10/2019) POCT PREG Negative On board controls acceptable Yes with C Line POCT PREG LOT # POCT PREG TEST DATE Specimen Urine - URINE, CLEAN CATCH US HEAD NECK (08/06/2019 3:41 PM [employer]) Specimen Impressions Performed At PACS/VR/DOSE Multiple thyroid [...] Results Inft User - 08/06/2019 3:59 PM [employer] * * * * * * * [...] FOR DIAGNOSIS AND TREATMENT (08/06/2019 3:01 PM [employer]) Specimen Performing Organization Address City/State/Zipcode Phone Number HIM ASSIGNMENT OF BENEFITS (08/06/2019 3:00 PM [employer]) Specimen Performing Organization Address City/State/Zipcode Phone Number HIM VACCINATIONS - CONSENTS, ELIGIBILITY, HISTORY (07/04/2019 12:01 AM CDT) Specimen Performing Organization Address City/State/Zipcode Phone Number HIM from Last 3 Months Insurance Payer Benefit Plan / Subscriber ID Effective Phone Address Type Group Dates [facility] [id number] 2017-Pre Medicare Adv HEALTHCARE - HEALTHCARE sent HMO MANAGED DUAL COMPLETE MEDICARE HMO [place] MEDICAID OF xxxxxxxxx 2016-Pr [phone] Medicaid [place] esent [id number] [place] [address] [employer] OPT[employer] [id number] 2017-Pre P O BOX [facility] sent [id number] [place] [address] (Home) [address] [phone] [place], [place] (Work) [address] [facility] Self [address] [place] [address] (Home) [address] [phone] [place], [place] (Work) [address] Advance Directives Name Relationship Healthcare Agent Communication Relationship Laura Olivia Mother Primary healthcare agent Kei Rahman Father First alternate healthcare [phone] agent (Mobile)
--- OUTSIDE RECORDS SUMMARY | 2019-11-03 16:27 | XMS REPORT | Clinical Summary ---
:1975 Author Organization [facility] Address [address] [place] [address] Care Team Providers Name Role Phone Carin [...] DAILY . APPOINTMENT REQUIRED FOR FUTURE REFILLS busPIRone 10 mg Take 2 tablets by 360 tablet 1 09/24/2019 Active tabletIndications: mouth 2 (two) Anxiety disorder due times daily. to medical condition citalopram 40 mg Take 1 tablet by 90 tablet 1 09/24/2019 Active tabletIndications: mouth daily. MDD (recurrent major depressive disorder) in remission, Anxiety disorder due to medical condition Active Problems Problem Noted [...] (Primary Dx) 08/10/2019 Orders Only Doctor Unassigned, [place] 08/09/2019 Refill Pulmonary Disease Gracie Booth DO Refill Request 08/06/2019 Hospital Radiology Mateo De La Torre MD 08/06/2019 Orders Only Doctor Unassigned, [place] 07/27/2019 Office Visit Endocrinology Mateo De La Torre Thyroid nodule ( Primary Dx); Diabetes & Metabolism MD Dulce Maria Hypothyroidism, unspecified type 07/16/2019 Refill Neurology Kath Farr MD Refill Request 07/16/2019 Telephone Family Medicine Josemanuel, Rx Concern/Question Carin Adams MD 07/10/2019 Office Visit Family Calvin Abernathy, Essential hypertension ( Primary Dx); Carin Adams MD Acquired hypothyroidism; Mixed hyperlipidemia; Obesity (BMI 30-39.9); Nutritional counseling; Exercise counseling; Medication monitoring encounter; Encounter for long-term (current) use of medications; Peripheral polyneuropathy; Diabetes mellitus screening; Bilateral impacted cerumen; Decreased hearing of both ears 07/04/2019 Orders Only Doctor Unassigned, [place] 07/04/2019 Refill Family Calvin Abernathy, Refill Request Carin Adams MD from Last 3 Months [...] Sign Reading Time Taken Comments Blood Pressure 127/81 09/24/2019 8:02 AM [employer] Pulse 103 09/24/2019 8:02 AM [employer] Temperature 36.8 C (98.2 F) 08/10/2019 8:56 AM [employer] Respiratory Rate 18 09/24/2019 8:02 AM [employer] Oxygen Saturation 98% 07/27/2019 9:29 AM CDT Inhaled Oxygen Concentration - - Weight 107 kg (236 lb) 09/24/2019 8:02 AM [employer] Height 157.5 cm (5' 2") 09/24/2019 8:02 AM [employer] Body Mass Index 43.16 09/24/2019 8:02 AM [employer] Plan of Treatment Date Type Specialty Care Team Description 10/08/2019 Office Visit Oncology Daphney Calderon NP [address] [place] [address] 10/09/2019 Office Visit Family Medicine Carin Abernathy MD [address] [place] [address] [place] [phone] 10/16/2019 Office Visit Cardiology Ricardo Dyer MD [address] [facility] [address] SARAH [address] [place] [phone] 11/09/2019 Nurse Visit Obstetrics & Gynecology Nurse, [facility] 11/16/2019 Office Visit Pulmonary Disease Gracie Booth DO [facility] [place] [phone] 01/04/2020 Office Visit Neurology Kath Farr MD [address] [place] [address] 01/10/2020 Office Visit Family Medicine Carin Abernathy MD [address] [place] [address] [facility] [place] [address] [phone] 01/30/2020 Office Visit Obstetrics & Gynecology Netta Rausch PA-C [address] [place] [address] [phone] 04/23/2020 Office Visit Urology Corry Shen FNP [address] [facility] [address] [address] [phone] 08/01/2020 Office Visit Endocrinology Diabetes & Mateo De La Torre MD [address] [place] [address] [phone] Health Maintenance Due Date Last Done Comments Breast Cancer Screening 02/09/2020 02/08/2019, 02/01/2018 (MAMMOGRAM) PAP SMEAR 01/30/2024 01/29/2019, 10/31/2015 DTaP,Tdap,and Td Vaccines (3 - Td) 08/10/2029 08/10/2019, 10/31/2015 INFLUENZA VACCINE Completed 07/04/2019, 07/04/2019, 06/30/2018, Additional history exists PNEUMOCOCCAL 0-64 YEARS COMBINED Completed 08/10/2019, 03/07/2016, SERIES 04/01/2014 Procedures Procedure Name Priority Date/Time Associated Diagnosis Comments VACCINATIONS - Routine 08/10/2019 12:01 CONSENTS, AM [employer] ELIGIBILITY, HISTORY IMMTRAC2 CONSENT Routine 08/10/2019 12:01 AM [employer] POCT TEST Routine 08/10/2019 Surveillance for Results for this Depo-Provera procedure are in contraception the results section. US HEAD NECK Routine 08/06/2019 3:41 Thyroid nodule Results for this PM [employer] procedure are in the results section. CONSENT/REFUSAL FOR Routine 08/06/2019 3:01 DIAGNOSIS AND PM [employer]IC TREATMENT ASSIGNMENT OF Routine 08/06/2019 3:00 BENEFITS PM [employer] VACCINATIONS - Routine 07/04/2019 12:01 CONSENTS, AM CDT ELIGIBILITY, HISTORY from Last 3 Months Results IMMTRAC2 CONSENT (08/10/2019 12:01 AM HE[employer] MECHANIC) Specimen Performing Organization Address City/State/Zipcode Phone Number [facility] VACCINATIONS - CONSENTS, ELIGIBILITY, HISTORY (08/10/2019 12:01 AM HE[employer] MECH[employer]IC)Only the most recent of2 resultswithin the time period is included. Specimen Performing Organization Address City/State/Zipcode Phone Number [facility] POCT TEST (08/10/2019) POCT PREG Negative On board controls acceptable Yes with C Line POCT PREG LOT # POCT PREG TEST DATE Specimen Urine - URINE, CLEAN CATCH US HEAD NECK (08/06/2019 3:41 PM [employer] FI[employer] MECH[employer]IC) Specimen Impressions Performed At PACS/VR/DOSE Multiple thyroid [...] Results Inft User - 08/06/2019 3:59 PM [employer] FIELD MECHANIC * * * * * * * [...] FOR DIAGNOSIS AND TREATMENT (08/06/2019 3:01 PM HEAV[employer] EQUIPMENT FIELD MECHANIC) Specimen Performing Organization Address City/State/Zipcode Phone Number HIM ASSIGNMENT OF BENEFITS (08/06/2019 3:00 PM HE[employer] EQU[employer]MENT FIELD MECHANIC) Specimen Performing Organization Address City/State/Zipcode Phone Number HIM from Last 3 Months Insurance Payer Benefit Plan / Subscriber ID Effective Phone Address Type Group Dates [facility] [id number] 2017-Pre Medicare Adv HEALTHCARE - HEALTHCARE sent HMO MANAGED DUAL COMPLETE MEDICARE HMO TM MEDICAID OF xxxxxxxxx 2016-Pr [phone] Medicaid [place] esent [id number] [place] [address] [employer] [id number] 2017-Pre [address] BOX [facility] sent [id number] [place] [address] (Work) [address] [facility] Self 1975 [address] ([address]) [address] [phone] [place], [place] (Work) [address] Advance Directives Name Relationship Healthcare Agent Communication Relationship Laura Olivia Mother Primary healthcare agent Kei Rahman Father First alternate healthcare [phone] agent (Mobile)
--- OUTSIDE RECORDS SUMMARY | 2019-11-03 16:27 | XMS REPORT | Clinical Summary ---
:1975 Author Organization [facility] Address [address] [place] [address] Care Team Providers Name Role Phone Carin [...] (Primary Dx) 08/10/2019 Orders Only Doctor Unassigned, [place] 08/09/2019 Refill Pulmonary Disease Gracie Booth DO Refill Request 08/06/2019 Hospital Radiology Mateo De La Torre MD 08/06/2019 Orders Only Doctor Unassigned, [place] 07/27/2019 Office Visit Endocrinology Mateo De La [...] both ears 07/04/2019 Orders Only Doctor Unassigned, [place] 07/04/2019 Refill Family Calvin Abernathy, Refill Request [...] Comments Blood Pressure 127/81 09/24/2019 8:02 AM [employer] Pulse 103 09/24/2019 8:02 AM [employer] Temperature 36.8 C (98.2 F) 08/10/2019 8:56 AM [employer] Respiratory Rate 18 09/24/2019 8:02 AM [employer] Oxygen Saturation 98% 07/27/2019 9:29 AM CDT Inhaled Oxygen Concentration - - Weight 107 kg (236 lb) 09/24/2019 8:02 AM [employer] Height 157.5 cm (5' 2") 09/24/2019 8:02 AM [employer] Body Mass Index 43.16 09/24/2019 8:02 AM [employer] Plan of Treatment Date Type Specialty Care Team Description 10/08/2019 Office Visit Oncology Daphney Calderon NP [address] [place] [address] 10/09/2019 Office Visit Family Medicine Carin Abernathy MD [address] [place] [address] [place] [phone] 10/16/2019 Office Visit Cardiology Ricardo Dyer MD [address] [facility] [address] SARAH [address] [place] [phone] 11/09/2019 Nurse Visit Obstetrics & Gynecology Nurse, [facility] 11/16/2019 Office Visit Pulmonary Disease Gracie Booth DO [facility] [place] [phone] 01/04/2020 Office Visit Neurology Kath Farr MD [address] [place] [address] 01/10/2020 Office Visit Family Medicine Carin Abernathy MD [address] [place] [address] [facility] [address] [phone] 01/30/2020 Office Visit Obstetrics & Gynecology Netta Rausch PA-C [address] [place] [address] [phone] 04/23/2020 Office Visit Urology Corry Shen FNP [address] [facility] [address] [address] [phone] 08/01/2020 Office Visit Endocrinology Diabetes & Mateo De La Torre MD [address] [place] [address] [phone] Health Maintenance Due Date Last Done Comments Breast Cancer Screening 02/09/2020 02/08/2019, 02/01/2018 (MAMMOGRAM) PAP SMEAR 01/30/2024 01/29/2019, 10/31/2015 DTaP,Tdap,and Td Vaccines (3 - Td) 08/10/2029 08/10/2019, 10/31/2015 INFLUENZA VACCINE Completed 07/04/2019, 07/04/2019, 06/30/2018, Additional history exists PNEUMOCOCCAL 0-64 YEARS COMBINED Completed 08/10/2019, 03/07/2016, SERIES 04/01/2014 Procedures Procedure Name Priority Date/Time Associated Diagnosis Comments VACCINATIONS - Routine 08/10/2019 12:01 CONSENTS, AM [employer] ELIGIBILITY, HISTORY IMMTRAC2 CONSENT Routine 08/10/2019 12:01 AM [employer] POCT TEST Routine 08/10/2019 Surveillance for Results for this Depo-Provera procedure are in contraception the results section. US HEAD NECK Routine 08/06/2019 3:41 Thyroid nodule Results for this PM [employer] procedure are in the results section. CONSENT/REFUSAL FOR Routine 08/06/2019 3:01 DIAGNOSIS AND PM [employer] TREATMENT ASSIGNMENT OF Routine 08/06/2019 3:00 BENEFITS PM [employer] VACCINATIONS - Routine 07/04/2019 12:01 CONSENTS, AM CDT ELIGIBILITY, HISTORY from Last 3 Months Results IMMTRAC2 CONSENT (08/10/2019 12:01 AM [employer]) Specimen Performing Organization Address City/State/Zipcode Phone Number [facility] VACCINATIONS - CONSENTS, ELIGIBILITY, HISTORY (08/10/2019 12:01 AM [employer])Only the most recent of2 resultswithin the time period is included. Specimen Performing Organization Address City/State/Zipcode Phone Number [facility] POCT TEST (08/10/2019) POCT PREG Negative On board controls acceptable Yes with C Line POCT PREG LOT # POCT PREG TEST DATE Specimen Urine - URINE, CLEAN CATCH US HEAD NECK (08/06/2019 3:41 PM [employer]) Specimen Impressions Performed At PACS/VR/DOSE Multiple thyroid [...] Results Inft User - 08/06/2019 3:59 PM [employer] * * * * * * * [...] FOR DIAGNOSIS AND TREATMENT (08/06/2019 3:01 PM [employer]) Specimen Performing Organization Address City/State/Zipcode Phone Number HIM ASSIGNMENT OF BENEFITS (08/06/2019 3:00 PM [employer]) Specimen Performing Organization Address City/State/Zipcode Phone Number HIM from Last 3 Months Insurance Payer Benefit Plan / Subscriber ID Effective Phone Address Type Group Dates [facility] [id number] 2017-Pre Medicare Adv HEALTHCARE - HEALTHCARE sent HMO MANAGED DUAL COMPLETE MEDICARE HMO TM MEDICAID OF xxxxxxxxx 2016-Pr [phone] Medicaid [place] esent [id number] [place] [address] [employer] [id number] 2017-Pre P O BOX [facility] sent [id number] [place] [address] (Work) [phone] [facility] Self 1975 [address] [facility] ([address]) [address] [phone] [place], [place] (Work) [address] Advance Directives Name Relationship Healthcare Agent Communication Relationship Laura Olivia Mother Primary healthcare agent Kei Rahman Father First alternate healthcare [phone] agent (Mobile)
[2019-11-03] MEDS ORDERED: IBUPROFEN 400 MG TAB ONE (16:51)
[2019-11-03] MEDS ORDERED: ACETAMINOPHEN 325 MG TABLET ONE (16:51)
--- NOTE | 2019-11-03 17:43 | RAD REPORT ---
EXAM DESCRIPTION: RAD - Ankle Right 3 View - 11/03/2019 5:15 pm CLINICAL HISTORY: Right ankle pain status post fall FINDINGS: Soft tissue swelling. Bony density adjacent to the lateral malleolus has a sclerotic border and probably is chronic. No dislocation.
--- NOTE | 2019-11-03 17:47 | RAD REPORT ---
EXAM DESCRIPTION: RAD - Wrist Left 3 View - 11/03/2019 5:14 pm CLINICAL HISTORY: Left wrist pain status post injury FINDINGS: No fracture is seen. 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 Widening of the scapholunate joint likely secondary to ligamentous injury. Most likely it is chronic. If the patient continues to have symptoms to suggest an occult fracture then a followup plain film se meghna in 7 days would be recommended
--- NOTE | 2019-11-03 17:51 | ER ---
Nurse's Notes [facility] Name: Linda Rahman Age: 44 yrs Sex: Female : 1975 Arrival Date: 11/03/2019 Time: 16:16 Bed 14 Private MD: Diagnosis: Fall on same level from slipping, tripping and stumbling;Superficial injury of unspecified part of head-from fall;Pain in left wrist-from fall;Pain in right ankle and joints of right foot-from fall;Other chest pain-right lateral chest pain from fall Presentation: 11/03 16:28 Presenting complaint: Patient states: fell on the bus and hit the rail with right side iw of head, also hit right ribs and left hand, denies LOC, occurred at 1300 today. Transition of care: patient was not received from another setting of care. Onset of symptoms was November 03, 2019. Risk Assessment: Do you want to hurt yourself or someone else? Patient reports no desire to harm self or others. Initial Sepsis Screen: Does the patient meet any 2 criteria? No. Patient's initial sepsis screen is negative. Does the patient have a suspected source of infection? No. Patient's initial sepsis screen is negative. Care prior to arrival: None. 16:28 Method Of Arrival: Ambulatory iw 16:28 Acuity: HOLLEY 4 iw Triage Assessment: 16:40 General: Appears in no apparent distress. uncomfortable, Behavior is calm, cooperative. ls4 Pain:. Neuro: No deficits noted. Neuro: No deficits noted. Cardiovascular: No deficits noted. Cardiovascular: No deficits noted. Respiratory: Airway is patent Respiratory effort is even, unlabored, Respiratory pattern is regular. GI: No deficits noted. : No deficits noted. Derm: No deficits noted. Musculoskeletal: No deficits noted. 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 iw Historical: - Allergies: 16:33 Amoxicillin; iw 16:33 Benadryl; iw 16:33 Benzonatate; iw 16:33 Codeine; iw 16:33 Demerol; iw 16:33 Geodon; iw 16:33 Ibuprofen; iw 16:33 Lorazepam; iw 16:33 Meclizine; iw 16:33 Tessalon Perles; iw - Home Meds: 16:33 amitriptyline 50 mg Oral tab nightly [Active]; atorvastatin 10 mg Oral tab nightly iw [Active]; buspirone 10 mg Oral tab 1 tab 2 times per day [Active]; citalopram 40 mg tab 1 tab once daily [Active]; Colace Oral once daily [Active]; cyanocobalamin (vitamin B-12) 1,000 mcg Oral tab monthly [Active]; ferrous sulfate 325 mg (65 mg iron) Oral TbEC three times a day [Active]; Flovent Inhl [Active]; Folic Acid Oral [Active]; gabapentin 300 mg Oral cap 2 caps nightly [Active]; ibuprofen 600 mg Oral tab every 6 hours for Pain [Active]; levothyroxine 50 mcg tab 1 tab once daily [Active]; loratadine 10 mg Oral tab 1 tab once daily [Active]; losartan 50 mg Oral tab [Active]; lurasidone 40mg Oral once daily [Active]; Multi Vitamin Oral [Active]; Prilosec Oral [Active]; Skelaxin Oral [Active]; Vitamin C Oral [Active]; Vitamin D3 Oral [Active]; Zanaflex Oral [Active]; - PMHx: 16:33 Anemia; High Cholesterol; Hypertension; neuropathy; iw - Immunization history:: Adult Immunizations up to date. - Coronavirus screen:: The patient has NOT traveled to [place], [place], or [place] in the past 14 days. Proceed with normal triage process as indicated. - Social history:: Smoking status: Patient denies any tobacco usage or history of. - Ebola Screening: : Patient negative for fever greater than or equal to 101.5 degrees Fahrenheit, and additional compatible Ebola Virus Disease symptoms Patient denies exposure to infectious person Patient denies travel to an Ebola-affected area in the 21 days before illness onset No symptoms or risks identified at this time. Screenin:37 Abuse screen: Denies threats or abuse. Denies injuries from another. Nutritional ls4 screening: No deficits noted. Tuberculosis screening: No symptoms or risk factors identified. Fall Risk Fall in past 12 months (25 points). No secondary diagnosis (0 pts). No IV (0 pts). Ambulatory Aid- None/Bed Rest/Nurse Assist (0 pts). Gait- Normal/Bed Rest/Wheelchair (0 pts) Mental Status- Oriented to own ability (0 pts). Assessment: 16:43 Reassessment: see triage assessment . General:. ls4 Vital Signs: 16:33 BP 141 / 71; Pulse 119; Resp 18 S; Temp 97.4; Pulse Ox 99% on R/A; Weight 110.68 kg; iw Height 5 ft. 2 in. (157.48 cm); Pain 9/10; 17:30 BP 132 / 70; Pulse 88; Resp 14; Temp 97.4; Pulse Ox 99% on R/A; Pain 5/10; ls4 18:30 BP 138 / 80; Pulse 89; Resp 16; Pulse Ox 99% on R/A; Pain 4/10; ls4 16:33 Body Mass Index 44.63 (110.68 kg, 157.48 cm) iw ED Course: 16:16 Patient arrived in ED. as 16:21 Young Burgos PA is PHCP. cp 16:21 Tommy Orellana MD is Attending Physician. cp 16:26 Nadia High, ABDULLHAI is Primary Nurse. ls4 16:29 Triage completed. iw 16:33 Arm band placed on. iw 16:43 Patient has correct armband on for positive identification. Bed in low position. Call ls4 light in reach. Side rails up X 1. 16:44 No provider procedures requiring assistance completed. Patient did not have IV access ls4 during this emergency room visit. 17:11 XRAY Ankle RIGHT 3 view In Process Unspecified. EDMS 17:11 XRAY Chest Pa And Lat (2 Views) In Process Unspecified. EDMS 17:12 XRAY Wrist LEFT 3 view In Process Unspecified. EDMS 17:54 Velcro wrist splint applied to left wrist. jb1 17:54 Air stirrup applied to right ankle. jb1 18:57 cms intact post splint. ls4 Administered Medications: 16:50 Drug: Ibuprofen 800 mg Route: PO; ls4 17:30 Follow up: Response: No adverse reaction; Marked relief of symptoms ls4 16:51 Drug: Tylenol 1000 mg Route: PO; ls4 17:30 Follow up: Response: No adverse reaction; Marked relief of symptoms ls4 Outcome: 17:50 Discharge ordered by . cp 18:40 Patient left the ED. ls4 18:55 Discharged to home ambulatory, with family. ls4 18:55 Condition: stable 18:55 Discharge instructions given to patient, family, Instructed on discharge instructions, follow up and referral plans. medication usage, Demonstrated understanding of instructions, follow-up care, medications. Signatures: Dispatcher [employer] Bon Guzman jb1 Alayna Guerra Irene, RN RN iw Young Burgos PA PA cp Stewart, Lisa, RN RN ls4
--- NOTE | 2019-11-03 17:51 | EDPHYS ---
Physician Documentation [facility] Name: Linda Rahman Age: 44 yrs Sex: Female : 1975 Arrival Date: 11/03/2019 Time: 16:16 Bed 14 Private MD: ED Physician Tmomy Orellana HPI: 11/03 16:35 This 44 yrs old Female presents to ER via Ambulatory with complaints of Fall cp Injury. 16:35 Details of fall: The patient fell from an upright position, while walking, and struck cp struck head against metal pole. Onset: The symptoms/episode began/occurred today, at 13:30. Associated injuries: The patient sustained injury to the head, contusion, injury to the chest, specifically the right lateral rib area, tenderness, left wrist, painful injury, right ankle, painful injury. Severity of symptoms: in the emergency department the symptoms are unchanged, despite home interventions. 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 iw Historical: - Allergies: 16:33 Amoxicillin; iw 16:33 Benadryl; iw 16:33 Benzonatate; iw 16:33 Codeine; iw 16:33 Demerol; iw 16:33 Geodon; iw 16:33 Ibuprofen; iw 16:33 Lorazepam; iw 16:33 Meclizine; iw 16:33 Tessalon Perles; iw - Home Meds: 16:33 amitriptyline 50 mg Oral tab nightly [Active]; atorvastatin 10 mg Oral tab nightly iw [Active]; buspirone 10 mg Oral tab 1 tab 2 times per day [Active]; citalopram 40 mg tab 1 tab once daily [Active]; Colace Oral once daily [Active]; cyanocobalamin (vitamin B-12) 1,000 mcg Oral tab monthly [Active]; ferrous sulfate 325 mg (65 mg iron) Oral TbEC three times a day [Active]; Flovent Inhl [Active]; Folic Acid Oral [Active]; gabapentin 300 mg Oral cap 2 caps nightly [Active]; ibuprofen 600 mg Oral tab every 6 hours for Pain [Active]; levothyroxine 50 mcg tab 1 tab once daily [Active]; loratadine 10 mg Oral tab 1 tab once daily [Active]; losartan 50 mg Oral tab [Active]; lurasidone 40mg Oral once daily [Active]; Multi Vitamin Oral [Active]; Prilosec Oral [Active]; Skelaxin Oral [Active]; Vitamin C Oral [Active]; Vitamin D3 Oral [Active]; Zanaflex Oral [Active]; - PMHx: 16:33 Anemia; High Cholesterol; Hypertension; neuropathy; iw - Immunization history:: Adult Immunizations up to date. - Coronavirus screen:: The patient has NOT traveled to [place], [place], or [place] in the past 14 days. Proceed with normal triage process as indicated. - Social history:: Smoking status: Patient denies any tobacco usage or history of. - Ebola Screening: : Patient negative for fever greater than or equal to 101.5 degrees Fahrenheit, and additional compatible Ebola Virus Disease symptoms Patient denies exposure to infectious person Patient denies travel to an Ebola-affected area in the 21 days before illness onset No symptoms or risks identified at this time. ROS: 16:40 Constitutional: Negative for body aches, chills, fever, poor PO intake. cp 16:40 Neck: Negative for stiffness, bony tenderness. cp 16:40 Cardiovascular: Positive for chest pain, of the right lateral chest, Negative for edema, palpitations. 16:40 Respiratory: Negative for cough, shortness of breath, wheezing. 16:40 Abdomen/GI: Negative for abdominal pain, nausea, vomiting, diarrhea. 16:40 Back: Negative for pain at rest, pain with movement. 16:40 MS/extremity: Positive for pain, of the left wrist and right ankle, Negative for decreased range of motion, deformity, paresthesias. 16:40 Skin: Negative for rash. 16:40 Neuro: Negative for altered mental status, dizziness, loss of consciousness, syncope, weakness. 16:40 All other systems are negative. Exam: 16:50 Constitutional: The patient appears in no acute distress, alert, awake, non-toxic, well cp developed, well nourished, obese. 16:50 Head/face: Noted is no obvious of injury or deformity except tenderness, that is mild, cp of the right frontal area and right temporal area. 16:50 Eyes: Periorbital structures: appear normal, Pupils: equal, round, and reactive to light and accomodation, Extraocular movements: intact throughout, Conjunctiva: normal, no exudate, no injection, Sclera: no appreciated abnormality, Lids and lashes: appear normal, bilaterally. 16:50 ENT: External ear(s): are unremarkable, Ear canal(s): are normal, clear, TM's: dullness, bilaterally, Nose: is normal, Mouth: Lips: moist, Oral mucosa: pink and intact, moist, Posterior pharynx: Airway: normal, no evidence of obstruction, patent. 16:50 Neck: External neck: tenderness, that is mild, right lateral neck, C-spine: vertebral tenderness, is not appreciated, crepitus, is not appreciated, ROM/movement: limited range of motion, is not appreciated, nuchal rigidity, is not appreciated. 16:50 Chest/axilla: Inspection: normal, Palpation: crepitus, is not appreciated, tenderness, that is mild, of the right lateral posterior chest and right lateral anterior chest, that partially reproduces the patient's complaints. 16:50 Cardiovascular: Rate: tachycardic, Rhythm: regular, Edema: is not appreciated, JVD: is not appreciated. 16:50 Respiratory: the patient does not display signs of respiratory distress, Respirations: normal, no use of accessory muscles, no retractions, no splinting, no tachypnea, labored breathing, is not present, Breath sounds: are clear throughout, no decreased breath sounds, no stridor, no wheezing. 16:50 Abdomen/GI: Inspection: obese Palpation: abdomen is soft and non-tender, in all quadrants. 16:50 Back: pain, is absent, ROM is normal, vertebral tenderness, is not appreciated. 16:50 Musculoskeletal/extremity: Extremities: grossly normal except: noted in the left wrist: pain, There is no evidence of decreased ROM, deformity, noted in the right ankle: pain, swelling, tenderness, no evidence of deformity, no pain to palpation noted proximal right fibula or base of right fifth metatarsal. 16:50 Neuro: Orientation: to person, place \T\ time. Mentation: is normal, Cerebellar function: is grossly normal, Motor: moves all fours, strength is normal, Sensation: is normal. Vital Signs: 16:33 BP 141 / 71; Pulse 119; Resp 18 S; Temp 97.4; Pulse Ox 99% on R/A; Weight 110.68 kg; iw Height 5 ft. 2 in. (157.48 cm); Pain 9/10; 17:30 BP 132 / 70; Pulse 88; Resp 14; Temp 97.4; Pulse Ox 99% on R/A; Pain 5/10; ls4 18:30 BP 138 / 80; Pulse 89; Resp 16; Pulse Ox 99% on R/A; Pain 4/10; ls4 16:33 Body Mass Index 44.63 (110.68 kg, 157.48 cm) iw MDM: 16:27 Patient medically screened. cp 17:39 Test interpretation: by ED physician or midlevel provider: plain radiologic studies, cp xrays or left wrist negative for fracture, xrays of right ankle negative for fracture and chest xray negative for fracture of ribs/pneumothorax. 17:50 Data reviewed: vital signs, nurses notes, radiologic studies, plain films. cp 17:50 Differential diagnosis: closed head injury, contusion, fracture, laceration, multiple cp trauma. Counseling: I had a detailed discussion with the patient and/or guardian regarding: the historical points, exam findings, and any diagnostic results supporting the discharge/admit diagnosis, radiology results, to return to the emergency department if symptoms worsen or persist or if there are any questions or concerns that arise at home. Response to treatment: the patient's symptoms have markedly improved after treatment, and as a result, I will discharge patient. Special discussion: Based on the patient's history, exam and DX evaluation, there is no indication for emergent intervention or inpatient TX. It is understood by the patient/guardian that if the SXs persist or worsen they need to return immediately for re-evaluation. 11/03 16:34 Order name: XRAY Ankle RIGHT 3 view; Complete Time: 18:17 11/03 18:17 Interpretation: Report reviewed. 11/03 16:34 Order name: XRAY Chest Pa And Lat (2 Views); Complete Time: 18:17 cp 11/03 18:17 Interpretation: Report reviewed. 11/03 16:34 Order name: XRAY Wrist LEFT 3 view; Complete Time: 18:17 11/03 18:18 Interpretation: Reviewed. 11/03 17:26 Order name: Wrist Splint: left wrist; Complete Time: 17:54 cp 11/03 17:26 Order name: Ankle Splint: Aircast; Complete Time: 17:54 cp 11/03 17:26 Order name: Crutches; Complete Time: 17:54 cp Administered Medications: 16:50 Drug: Ibuprofen 800 mg Route: PO; ls4 17:30 Follow up: Response: No adverse reaction; Marked relief of symptoms ls4 16:51 Drug: Tylenol 1000 mg Route: PO; ls4 17:30 Follow up: Response: No adverse reaction; Marked relief of symptoms ls4 Disposition: 18:00 Chart complete. cp 11/04 07:08 Co-signature as Attending Physician, Tommy Orellana MD. rn Disposition: 11/03/19 17:50 Discharged to Home. Impression: Fall on same level from slipping, tripping and stumbling, Superficial injury of unspecified part of head - from fall, Pain in left wrist - from fall, Pain in right ankle and joints of right foot - from fall, Other chest pain - right lateral chest pain from fall. - Condition is Stable. - Discharge Instructions: Elastic Bandage and RICE, Chest Contusion, Adult, Head Injury, Adult, Wrist Pain, Ankle Pain. - Prescriptions for Naprosyn 500 mg Oral Tablet - take 1 tablet by ORAL route 2 times per day As needed take with food; 20 tablet. - Medication Reconciliation Form, Thank You Letter, Antibiotic Education, Prescription Opioid Use form. - Follow up: Private Physician; When: 1 - 2 days; Reason: Worsening of condition. - Problem is new. - Symptoms have improved. Signatures: Dispatcher [employer] Marychuy Taveras RN RN iw Nieto, Roman, MD MD rn Page, Corey, PA PA cp Nadia High RN RN ls4 Corrections: (The following items were deleted from the chart) 11/03 17:52 17:50 11/03/2019 17:50 Discharged to Home. Impression: Fall on same level from cp slipping, tripping and stumbling; Superficial injury of unspecified part of head - from fall; Pain in left wrist - from fall; Pain in right ankle and joints of right foot - from fall. Condition is Stable. Forms are Medication Reconciliation Form, Thank You Letter, Antibiotic Education, Prescription Opioid Use. Follow up: Private Physician; When: 1 - 2 days; Reason: Worsening of condition. Problem is new. Symptoms have improved. cp 18:40 17:52 11/03/2019 17:50 Discharged to Home. Impression: Fall on same level from ls4 slipping, tripping and stumbling; Superficial injury of unspecified part of head - from fall; Pain in left wrist - from fall; Pain in right ankle and joints of right foot - from fall; Other chest pain - right lateral chest pain from fall. Condition is Stable. Forms are Medication Reconciliation Form, Thank You Letter, Antibiotic Education, Prescription Opioid Use. Follow up: Private Physician; When: 1 - 2 days; Reason: Worsening of condition. Problem is new. Symptoms have improved. cp
--- NOTE | 2019-11-03 17:54 | RAD REPORT ---
EXAM DESCRIPTION: Hernan Sutton And Randall (2 Views)11/03/2019 5:22 pm CLINICAL HISTORY: Chest pain COMPARISON: 2019 FINDINGS: The lungs appear clear of acute infiltrate. The heart is normal size. Elevation of the ri ght hemidiaphragm is unchanged IMPRESSION: No acute abnormalities displayed
[2019-11-03 18:54] VITALS: BP 141/71; TEMP 97.4; O2SAT 99
== END 2019-11-03 18:40 | disposition home or self-care (01) ==
LOC: ER 16:15
DX: S00.90XA Unspecified superficial injury of unspecified part of head, initial encounter (principal); M25.532 Pain in left wrist; M25.571 Pain in right ankle and joints of right foot; W19.XXXA Unspecified fall, initial encounter; Y93.01 Activity, walking, marching and hiking; Y92.9 Unspecified place or not applicable; Z88.1 Allergy status to other antibiotic agents; Z88.5 Allergy status to narcotic agent; Z88.6 Allergy status to analgesic agent; Z88.8 Allergy status to other drugs, medicaments and biological substances; E78.00 Pure hypercholesterolemia, unspecified
CPT/HCPCS: 71046; 99283

== ENCOUNTER 2020-07-15 08:58 | Emergency (ER) | payer OTHER ==
--- OUTSIDE RECORDS SUMMARY | 2020-07-15 09:18 | XMS REPORT | Continuity of Care Document ---
:1975 Author Organization [facility] t Address [address] [place] [address] Care Team Providers Name Role Phone Jessie Abernathy MD Attending Clinician Doctor Unassigned, Name Attending Clinician Unavailable Tirso Farr MD Attending Clinician Leobardo SALOMON Attending Clinician Yumiko [employer] Attending Clinician Provider, Urgent Care Attending Clinician Unavailable Nurse, Women's Health Attending Clinician Unavailable Pob, Lab Main Attending Clinician Unavailable Problems This patient has no known problems. Allergies, Adverse Reactions, Alerts This patient has no known allergies or adverse reactions. Medications This patient has no known medications. Procedures This patient has no known procedures. Encounters Start End Encounter Admission Attending Care Care Encounter Source Date/Time Date/Time Type Type Clinicians Facility Department ID 2020-06-27 2020-06-27 Telemedici Josemanuel [facility] [id number] 07:35:39 07:50:39 ne Visit [facility] [id number] [place] [id number] Esme [phone] nal 0[address] One 2020-06-25 2020-06-25 Telephone IVETT Abernathy [id number] 00:00:00 00:00:00 [facility] A [facility] [id number] [place] [id number] Professio [phone] nal 0[address] One 2020-06-19 2020-06-19 Orders Doctor CLAU [id number] 00:00:00 00:00:00 Only Unassigned, [facility]RA[facility] [id number] [facility] [id number] [id number] 2020-06-18 2020-06-18 Refill Josemanuel GAFRANDY [id number] 00:00:00 00:00:00 [facility]iful [facility] [id number] [place] [id number] Professio [phone] nal 044 [address] One 2020-06-17 2020-06-17 RefKath Hall [facility] [id number] 00:00:00 00:00:00 Health [id number] [place] [id number] [place] [phone] Medical 092 Office Building 2020-06-16 2020-06-16 RefKath Hall [facility] [id number] 00:00:00 00:00:00 Health [id number] [place] [id number] [place] [phone] Medical 2 Office Building 2020-06-13 2020-06-13 Telephone IVETT Abernathy 1.2.840.114 [id number] 00:00:00 00:00:00 Wondiful A [facility] [id number] [place] [id number] Professio [phone] nal 044 Office [address] One 2020-06-13 2020-06-13 Telephone Leobardo [facility] [id number] 00:00:00 00:00:00 Gracie [place]oton [id number] [place] [id number] Professio [phone] 2020-05-27 2020-05-27 Reffranchesca Abernathy GAFRANDY 1.2.840.114 [id number] 00:00:00 00:00:00 Wondiful A [place] [id number] [place] [id number] Professio [phone] [place] [address] Building 2020-05-26 2020-05-26 Susan Calderon Daphney [facility] 1.2.840.114 [id number] 00:00:00 00:00:00 SPECIALTY [id number] CARE [id number] [place] AT [phone] [address] 2020-05-19 2020-05-19 Telephone Kath Farr [facility] [id number] 00:00:00 00:00:00 Health [id number] Clear [id number] [place] [phone] Medical 2 Office Building 2020-05-16 2020-05-16 Telemedici Kath Farr [facility] [id number] 16:26:34 16:41:34 ne Visit Health [id number] Clear [id number] [place] [phone] Medical 092 Office Building 2020-05-09 2020-05-09 Urgent Provider, RUST [id number] 10:00:47 10:20:47 Care Ang Urgent Health [id number] Care [place] [id number] Professio [phone] [place] [address] Office [address] One 2020-05-02 2020-05-02 Telephone Josemanuel RUST 1.2.840.114 [id number] 00:00:00 00:00:00 Wondiful A Health [id number] [place] [id number] Professio [phone] [place] [address] Office [address] One 2020-04-21 2020-04-21 Urgent Provider, RUST [id number] 11:03:51 12:01:19 Care Ang [facility]gent [facility] [id number] Care [place] [id number] Professio [phone] [place] [address] Office [address] One 2020-04-14 2020-04-14 Telephone Josemanuel GAFRANDY 1.2.840.114 [id number] 00:00:00 00:00:00 Wondiful A Health [id number] [place] [id number] Professio [phone] [facility] 044 Office Building One 2020-04-08 2020-04-08 Susan Farr Kath J [facility] 1.2.840.114 [id number] 00:00:00 00:00:00 Health [id number] [place] [id number] [place] [phone] Medical 092 Office Building 2020-04-04 2020-04-04 Nurse Nurse, [facility] 1.2.840.114 [id number] 08:53:54 09:07:57 Visit Women's [place] [id number] Health [place] [id number] Professio [phone] [facility] 134 Building 2020-04-04 2020-04-04 Insurance Executive Zachariah [facility] 1.2.840.114 [id number] 07:38:05 07:53:05 Visit Lab Main [place] [id number] [place] [id number] Professio [phone] [facility] 353 Building 2020-04-04 2020-04-04 Telephone Josemanuel RUST 1.2.840.114 [id number] 00:00:00 00:00:00 Wondiful A Health [id number] [place] [id number] Professio [phone] [place] [address] Office Building One Results This patient has no known results.
--- OUTSIDE RECORDS SUMMARY | 2020-07-15 09:19 | XMS REPORT | Summary of Care ---
:1975 Author Organization [facility] - [facility] Address [address] [place] [id number] Care Team Providers Name Role Phone Bryan Abernathy MD Primary Care Provider ANAT Diamond Unavailable Unavailable Kaley Dyer MD Unavailable Reason for Visit Reason Comments Assessment Encounter Details Date Type Department Care Team Description 05/02/2020 Telephone [facility] Family Medicine Carin Odell MD Assessment - [address] [place] [address] [place] [address] [phone] Allergies Active Allergy Reactions Severity Noted Date Comments Amoxicillin Hives Medium 05/30/2015 Diphenhydramine Hcl Swelling High 04/12/2017 Benzonatate Swelling High 11/04/2016 Tightness in th roat, difficulty swal lowing and breathing Codeine Itching Low 10/12/2017 Meperidine Hcl Hallucinations High 05/30/2015 Ziprasidone Hcl Hives High 05/30/2015 Lorazepam Swelling High 06/27/2017 Hard to swallow Meclizine Anaphylaxis High 10/18/2016 Tomato Other - See comments Low 04/03/2018 Tomato source reportedly causes excessiv e sneezing. But p t still eats it. documented as of this encounter (statuses as of 05/06/2020) Medications Medication Sig Dispensed Refills Start Date End Date Status FOLIC ACID ORAL Take by mouth 0 Active daily. MULTIVIT Take by mouth. 0 Acti ve &MINERALS/FERROUS FUM (MULTI VITAMIN ORAL) loratadine 10 mg Take 1 tablet by 30 tablet 0 10/18/2016 Active tabletIndications: mouth daily. Viral URI METHYLCELLULOSE 0 Acti ve (FIBER THERAPY MISC) DOCUSATE SODIUM Take by mouth. 0 Active (COLACE ORAL) vitamin C with derrell Take 1,000 mg by 0 Active hips (VITAMIN C) mouth daily. 1,000 mg tablet cholecalciferol, Take 1,000 Units by 0 Active vitamin D3, (VITAMIN mouth daily. D3) 1,000 unit tablet OMEPRAZOLE (PRILOSEC Take by mouth. 0 Active ORAL) coQ10, ubiquinol, 100 Take 1 capsule by 30 capsule 11 8 Active mg CapIndications: mouth daily. Back muscle [...] ORAL) CALCIUM ORAL Take by mouth 0 Ac tive daily. DOCOSAHEXANOIC Take 1,000 mg by 0 Active ACID/EPA (FISH OIL mouth daily. ORAL) cyanocobalamin 1 mL by 30 mL 0 04/11/2018 Acti ve (VITAMIN B-12) 1,000 Intramuscular route mcg/mL every 2 (two) injectionIndications: weeks. B12 deficiency FERROUS SULFATE 325 TAKE ONE TABLET BY 90 tablet 5 05/08/2018 Active mg (65 mg iron) MOUTH THREE TIMES tabletIndications: DAILY WITH MEALS Acquired hemolytic anemia LUTEIN ORAL Take by mouth. 0 Ac tive BIOTIN ORAL Take by mouth. 0 Ac tive cyanocobalamin 1,000 1 mL by 15 mL 1 03/28/2019 Active mcg/mL Intramuscular route injectionIndications: every 2 (two) B12 deficiency weeks. Indications: B12 deficiency fluticasone USE 2 SPRAY(S) IN 1 Bottle 5 03/26/2019 Active propionate 50 EACH NOSTRIL ONCE mcg/actuation nasal DAILY sprayIndications: Acute bacterial sinusitis, URI with cough and congestion pregabalin 100 mg Take 1 capsule by 90 capsule 5 12/21/2019 Active capsuleIndications: mouth 3 (three) Neuropathy of both times daily. feet amitriptyline 50 mg Take 2 tablets by 180 tablet 3 01/04/2020 Active tabletIndications: mouth at bedtime. Tension headache rosuvastatin 10 mg Take 1 tablet by 90 tablet 3 01/10/2020 Active tabletIndications: mouth at bedtime. Mixed hyperlipidemia levothyroxine 50 mcg TAKE 1 TABLET BY 90 tablet 3 01/10/2020 Active tabletIndications: MOUTH ONCE DAILY IN Acquired THE MORNING hypothyroidism albuterol (PROAIR Inhale 2 Puffs 1 Each 11 01/11/2020 Active HFA) 90 mcg/actuation every 6 (six) hours inhaler as needed for Wheezing or Shortness of Breath. fluticasone Inhale 2 Puffs 1 Inhaler 11 01/11/2020 Ac tive propionate (FLOVENT every 12 (twelve) HFA) 110 hours. mcg/actuation inhaler losartan 50 mg Take 1 tablet by 180 tablet 2 02/25/2020 Active tabletIndications: mouth 2 (two) times Sinus tachycardia, daily. Essential hypertension, MADDOX (dyspnea on exertion), MJ (obstructive sleep apnea) citalopram 40 mg Take 1 tablet by 90 tablet 1 03/10/2020 Active tabletIndications: mouth daily. MDD (recurrent major depressive disorder) in remission, Anxiety disorder due to medical condition busPIRone 10 mg Take 2 tablets by 360 tablet 1 03/10/2020 Active tabletIndications: mouth 2 (two) times Anxiety disorder due daily. to medical condition cyclobenzaprine 5 mg TAKE 1 TABLET BY 90 tablet 2 04/10/2020 Active tabletIndications: MOUTH EVERY 8 HOURS Tension headache NEEDED documented as of this encounter (statuses as of 05/06/2020) Active Problems Problem Noted Date Morbid obesity with body mass index of 40.0-49.9 01/29 SI joint arthritis 10/06/2017 Umbilical hernia 10/06/2017 [...] 10/31/2015 Recurrent major depressive disorder, in remission 01/2016 Hypothyroid 10/31/2015 Essential hypertension, benign 10/31/2015 Contraception management 10/31/2015 Well woman exam 10/31/2015 Chest pain 06/08/2015 Peripheral neuropathy Enlarged heart PCOS (polycystic ovarian syndrome) Vitamin B12 deficiency documented as of this encounter (statuses as of 05/06/2020) Immunizations Name Administration Dates Next Due Heamophilus Influenza B 11/13/2015 Influenza Virus Vaccine 07/04/2019 Influenza Virus Vaccine Quad ID 18-64 YRS 06/15/2017 Influenza Virus Vaccine Quad IM 3+ YRS 06/30/2018 Influenza Virus Vaccine Quad IM Multi-dose 6+ MO 08/05/2016 Influenza Virus Vaccine Recomb Quad IM, Preserv and 07/04/20 19 ABX Free 18-64 YRS Meningococcal B, OMV 03/07/2016 Meningococcal Polysaccharide (groups A, C, Y and 11/12/2015 W-135) conjugate vaccine (MCV4P) Pneumococcal 13 Conjugate, PCV13 (Prevnar 13) 03/07/2016 Pneumococcal Polysaccharide, PPSV23 (PNEUMOVAX) 08/10/2019, 04/01/2014 TDAP 10/31/2015 TDAP (ADACEL) VACCINE 08/10/2019 documented as of this encounter Social History Tobacco Use Types Packs/Day Years Used Date Former Smoker 0.5 25 10/20/1982 - 0 10/20/2007 Smokeless Tobacco: Never Used Comments: 10 years ago Alcohol Use Drinks/Week oz/Week Comments No 0 Standard drinks or equivalent 0.0 Sex Assigned at Date Recorded Not on file COVID-19 Exposure Response Date Recorded In the last month, have you been in contact with No / Unsure 04/21/2020 11:08 AM CDT someone who was confirmed or suspected to have Coronavirus / COVID-19? documented as of this encounter Last Filed Vital Signs Not on filedocumented in this encounter Miscellaneous Notes Telephone Encounter - Azucena Parson - 05/06/2020 11:06 AM CDTAttempted to contact patient, left message on voicemail elephone Encounter - Azucena Parson - 05/06/2020 11:05 AM CDTAttempted to contact patient, left message on voicemail elephone Encounter - Azucena Parson - 05/05/2020 2:30 PM CDTAttempted to contact patient, left message on voicemail elephone Encounter - Carin Abernathy MD - 05/05/2020 7:46 AM CDTIf it is just her foot and not the entire right side, she can be seen in the office and will likely require imaging and a specialist referral. elephone Encounter - Karen Gonzalez - 05/02/2020 1:50 PM CDTPt stated her right foot has been numb since this morning. documented in this encounter Plan of Treatment Date Type Specialty Care Team Description 06/03/2020 Office Visit Cardiology Ricardo Dyer MD [address] [facility] [address] [place] [phone] 07/07/2020 Office Visit Obstetrics & Gynecology Netta Rausch PA-C [address] [place] [address] [address] [place] [phone] 07/18/2020 Office Visit Pulmonary Disease Gracie Booth DO [address] [place] [phone] 08/01/2020 Office Visit Endocrinology Diabetes & McKin[place] y, Mateo H, MD Metabolism [address] [place], [place] [address] [phone] 09/08/2020 Office Visit Psychiatry Parvez Hunter MD [address] [place] [address]. [place] [phone] 01/20/2021 Office Visit Oncology Daphney Calderon NP [address] [place] [address] [phone] Health Maintenance Due Date Last Done Comments Breast Cancer Screening 02/09/2020 02/08/2019, 02/01/2018 (MAMMOGRAM) INFLUENZA VACCINE (#1) 2020 07/04/2019, 07/04/2019, 06/30/2018, Additional history exists Depression Screening 03/10/2021 03/10/2020, 03/10/2020 COLON CANCER SCREENING ANNUAL 2023 11/13/2015, 2014 FIT/FOBT Colorectal Cancer Screening 2023 PAP SMEAR 01/30/2024 01/29/2019, 10/31/2015 DTaP,Tdap,and Td Vaccines (3 - Td) 08/10/2029 08/10/2019, 0 10/31/2015 PNEUMOCOCCAL 0-64 YEARS COMBINED Completed 08/10/2019, 08/2016, SERIES 04/01/2014 documented as of this encounter Results Not on filedocumented in this encounter Insurance Payer Benefit Plan / Subscriber ID Effective Phone Address T ype Group Dates [facility] [id number] 2017-Pre Medicar e Adv HEALTHCARE - HEALTHCARE sent HMO MANAGED DUAL COMPLETE MEDICARE HMO [employer] MEDICAID OF [id number] 2016-Pr [phone] Medic aid [place] esent [id number] [place] [address] [employer] [id number] 2017-Pre [address] Beh avioral [facility] sent [phone] [place] [address] documented as of this encounter Advance Directives Name Relationship Healthcare Agent Communication Relationship Laura Olivia Mother Health Care Agent Kei Rahman [facility] [phone] Care Agent (Mobile)
--- OUTSIDE RECORDS SUMMARY | 2020-07-15 09:19 | XMS REPORT | Summary of Care ---
:1975 Author Organization [facility] Address [address] [place] [id number] Care Team Providers Name Role Phone Bryan Abernathy MD Primary Care Provider ANAT Diamond Unavailable Unavailable Kaley Dyer MD Unavailable Reason for Visit Reason Comments Other ear ringing x 2 months Encounter Details Date Type Department Care Team Description 04/21/2020 Urgent Care [facility] Family Grecia Khanna, ANDREAS [address] [place] [phone] Acute otitis media, unspecified otitis m edia type (Primary Dx); Medicine - [place] Provider, [facility] URI with cough and congestion; [address] [place] [address] Suspected Covid-19 [place] [address] Allergies Active Allergy Reactions Severity [...] as of this encounter (statuses as of 04/21/2020) Medications Medication Sig Dispensed Refills Start Date [...] 100 Take 1 capsule by 30 capsule 8 Active mg CapIndications: mouth daily. Back [...] MOUTH EVERY 8 HOURS Tension headache NEEDED brompheniramine-pseud Take 5 mL by mouth 200 mL 0 0 Active oephedrine-DM 4 (four) times 0 (BROMFED DM) 2-30-10 daily as needed for mg/5 mL Congestion/Allergie syrupIndications: URI s or Cough for up with cough and to 10 days. congestion, Acute otitis media, unspecified otitis media type clindamycin 300 mg Take 1 capsule by 21 capsule 0 04/21/2020 0 Active capsuleIndications: mouth 3 (three) 0 Acute otitis media, times daily for 7 unspecified otitis days. media type documented as of this encounter (statuses as of 04/21/2020) Active Problems Problem Noted Date Morbid obesity [...] as of this encounter (statuses as of 04/21/2020) Immunizations Name Administration Dates Next Due Heamophilus [...] Travel End No recent travel history available. COVID-19 Exposure Response Date Recorded In the last month, have you been in contact with No / Unsure 04/21/2020 11:08 AM CDT someone who was confirmed or suspected to have Coronavirus / COVID-19? documented as of this encounter Last Filed Vital Signs Vital Sign Reading Time Taken Comments Blood Pressure 128/83 04/21/2020 11:09 AM CDT Pulse 112 04/21/2020 11:09 AM CDT Temperature 36.8 C (98.2 F) 04/21/2020 11:09 AM CDT Respiratory Rate 18 04/21/2020 11:09 AM CDT Oxygen Saturation 96% 04/21/2020 11:09 AM CDT Inhaled Oxygen Concentration - - Weight 112.7 kg (248 lb 6 oz) 04/21/2020 11:09 AM CDT Height 157.5 cm (5' 2") 04/21/2020 11:09 AM CDT Body Mass Index 45.43 04/21/2020 11:09 AM CDT documented in this encounter Patient Instructions Patient InstructionsKrystyna Khanna FNP - 04/21/2020 11:40 AM CDT Patient Education Middle Ear Infection (Otitis Media) in Adults What is a middle ear infection? A middle ear infection occurs behind the eardrum. It is most often caused by a virus or bacteria. Most kids have at least one middle ear infection by the time they are 3 years old. But adults can also get them. What causes middle ear infections? Inflammation in the middle ear most often starts after youve had a sore throat, cold, or other upper respiratory problem. The infection spreads to the middle ear and causes fluid buildup behind the eardrum. What are the symptoms of a middle ear infection? These are the most common symptoms of middle ear infections in adults: Ear pain Feeling of fullness in the ear Fluid draining from the ear Fever Hearing loss These symptoms may look like other conditions or health problems. Always talk with yourhealthcareproviderfor a diagnosis. How is a middle ear infection diagnosed? Your healthcare provider will review your health history and do a physical exam. He or she will check the outer ear and the eardrum using an otoscope. The otoscope is a lighted tool that lets the healthcareprovider see inside the ear. A pneumatic otoscope blows a puff of air into the ear to test eardrum movement. When there is fluid or infection in the middle ear, movement is decreased. Your provider may also do a tympanometry. This is a test that directs air and sound to the middle ear. If you have ear infections often, your healthcare provider may suggest having a hearing test. How is a middle ear infection treated? Treatment will depend on your symptoms, age, and general health. It will also depend on how severe the condition is. Treatment may include: Antibiotics Pain relievers Placing small tubes in the eardrum for chronic ear infections What are possible complications of a middle ear infection? Untreated ear infections can lead to: Infection in other parts of the head Lasting (permanent) hearing loss Speech and language problems Can middle ear infections be prevented? Cold and allergy medicines don't seem to prevent ear infections. And currently there is no vaccine that can prevent the disease. But check with your healthcareprovider and make sure your vaccines [id number]. Living in a home where cigarettes are smoked can increase the chances of ear infections. Aparicio points about middle ear infections Middle ear infections can affect both children and adults. Pain and fever can be the most common symptoms. Without treatment, permanent hearing loss may happen. Take antibiotics as prescribed and finish all of the prescription. This can help prevent antibiotic-resistant infections or incomplete treatment with the infection returning. Next steps Tips to help you get the most from a visit to your healthcare provider: Know the reason for your visit and what you want to happen. Before your visit, write down questions you want answered. Bring someone with you to help you ask questions and remember what your provider tells you. At the visit, write down the name of a new diagnosis, and any new medicines, treatments, or tests. Also write down any new instructions your provider gives you. Know why a new medicine or treatment is prescribed, and how it will help you. Also know what the side effects are. Ask if your condition can be treated in other ways. Know why a test or procedure is recommended and what the results could mean. Know what to expect if you do not take the medicine or have the test or procedure. If you have a follow-up appointment, write down the date, time, and purpose for that visit. Know how you can contact your provider if you have questions. TASS gabe reviewed this educational content on 08/26/201819995816-8836 [employer]. [address] [place] [address], [place] [address]. All rights reserved. This information is not intended as a substitute for professional medical care. Always follow your healthcare professional's instructions. Patient Education Preventing Common Respiratory Infections Respiratory infections such as colds and the flu (influenza) are common in winter. These infections are often caused by viruses. They may share some symptoms. But not all respiratory infections are thesame. Some make you more sick than others. You can take steps to prevent common respiratory infections. And if you get sick, you can take care of yourself to keep the infection from getting worse. What is a cold? Symptoms include runny nose, coughing and sneezing, and sore throat. Cold symptoms tend to be milder than flu symptoms. Symptoms tend to come on slowly. They last for a few days to about a week. With a cold, you can still do most of the things you normally do. What is the flu? Symptoms include fever, headache, extreme tiredness (fatigue), cough, sore throat, runny nose, and muscle aches. Children may have upset stomach and vomiting, but adults often dont. Symptoms tend to come on quickly. Some, such as fatigue and cough, can last a few weeks. With the flu, you may feel worn out and not able to do normal activities. Its most likely not the flu if an adult has vomiting or diarrhea for a day or two. This so-called stomach flu is probably a GI (gastrointestinal) infection. When the infection gets worse Without proper care, a respiratory infection can get worse. It can lead to serious complications anddeath. If you arent getting better, call your healthcare provider. Complications can include: Bronchitis (infection of the airways that leads to shortness of breath and coughing up thick yellow or green mucus) Pneumonia (infection of the lungs in which fluid and mucus settle in the lungs, making breathing difficult) Worsening of chronic conditions such as heart failure, chronic lung disease, asthma, or diabetes Severe dehydration (loss of fluids) Sinus problems Ear infections Get a flu vaccine A fluvaccine protects you from influenza (but not other colds or infections). Get a vaccine each fall, before flu season starts. This can be done at a clinic, healthcare providers office, pharmacy, [facility], or through your workplace. Get pneumococcal vaccines Pneumonia can be a complication of influenza. There are 2 pneumococcal pneumonia vaccines that protect against many types of pneumonia. Talk with your healthcare provider about these important vaccines. Keep germs from spreading No one likes getting sick. To protect yourself and others from cold and flu germs: Wash your hands often with warm water and soap. Scrub them for 15 to 20 seconds. Use alcohol-based hand pattern vault clerk when you dont have access to soap and water. Dont touch your eyes, nose, and mouth. This may help you keep germs out of your body. Try to stay away from people with respiratory infections. You may want to stay out of crowds during flu season (winter). Ask your healthcare provider if you should get a pneumonia vaccination. Don't smoke and don't let others smoke in your home or car How to wash your hands Use warm water and plenty of soap. Work up a good lather. Clean your whole hand, under your nails, between your fingers, and up your wrists. Wash for at least 15 to 20 seconds. Dont just wiperub well. Rinse. Let the water run down your fingertips, not up your wrists. In a public restroom, use a paper towel to turn off the faucet and open the door. TASS last reviewed this educational content on 07/27/201919998425-8474 [employer]. [address] [place] [address], [place] [address]. All rights reserved. This information is not intended as a substitute for professional medical care. Always follow your healthcare professional's instructions. Patient Education Hospice: Understanding and Caring for Shortness of Breath (Dyspnea) Shortness of breath or breathlessness (dyspnea) is common in people with serious or advanced illness. It makes breathing difficult and uncomfortable. And it can cause a lot suffering. Families may be affected as well as they watch their loved one struggle to breathe. Dyspnea can be distressing for both the people who have it and their families. So its important to understand the scope of this symptom and the ways it can be treated. What are common causes of dyspnea? There are many causes of dyspnea. It can occur due to lung problems such as chronic obstructive pulmonary disease (COPD). It can be a symptom of other health problems such as heart disease, cancer, or neuromuscular disease. And it may occur as any terminal illness gets worse. Dyspnea often causes anxiety. This then makes breathing problems worse. How is dyspnea treated? The main goal of treatment is to help the person breathe more comfortably. To do this, medicines andother therapies are often used. Medicines Medicines can include: Oxygen therapy. This treatment helps improve breathing. It may be prescribed if tests show low oxygen in the blood. It may also be prescribed if it adds to the persons comfort. Opioids. These medicines are most often used to ease pain. But they can also help ease shortness of breath. Other medicines. These can include medicines to relieve certain problems that can occur with dyspnea, such as anxiety. Other therapies Other therapies can include: Breathing exercises. People are often taught pursed-lip breathing and diaphragmatic breathing to help them breathe better. These methods can also help ease dyspnea and anxiety. Ways to save energy. People are taught the best ways to move and use their bodies. This helps them save their strength. And it makes breathing easier when doing normal tasks. Body positioning. For some people, sitting upright may increase comfort and improve breathing. Itmay also help to raise the head of the bed when resting. Relaxation. This can help reduce stress and anxiety, which can make dyspnea worse. Some common methods include meditation and visualization. Simple activities can also help people relax and be distracted from shortness of breath. These include doing things such as reading a book, watching a movie, or listening to music. Breathing devices.These can be helpful in opening a persons airways to reduce breathing problems. A respiratory therapist can help decide if a breathing device would be helpful. How can loved ones help? A persons loved ones often arent sure what to do to help relieve breathing problems. Start by asking the healthcare provider for advice on how to help. These tips may help as well: Keep your loved one comfortable and safe: ? Maintain a cool temperature in the person's room. Lower the thermostat, or place a fan where it can blow gently on the persons cheek. Keep a window open to let in fresh air, if the weather is good. ? Help your loved one conserve energy. Put items such as medicines and walking aids within reach. ? If the person uses oxygen, keep sources of flame away from where the oxygen unit is stored. Check that the oxygen unit is turned off when it is not in use. And be sure to keep a fire extinguisher in the house. Dont let breathing trouble isolate your loved one. Spend time with him or her doing normal activities. Eat meals, watch movies, and go outdoors with your loved one. Provide calm support. Try to stay calm and relaxed around your loved one. People can often sense when family members and caregivers are worried about them. This can add to their anxiety, and make their dyspnea worse. TASS last reviewed this educational content on 02/24/201919996648-9735 [employer]. [address] [place] [address]. All rights reserved. This information is not intended as a substitute for professional medical care. Always follow your healthcare professional's instructions. documented in this encounter Progress Notes Krystyna Khanna FNP - 04/21/2020 11:40 AM CDT Cc: Chief Complaint Patient presents with Other ear ringing x 2 months Linda Rahman is a 44 year old female. Patient is here with pressure and ringing right ear, thinks it may be impacted. She has Hx of seasonal allergies and usually has a lot of wax. She belives she has acute flare up due to dry cough. She also has a hx of asthma and has been having flare up of SOB. Ear Pain Location: Right Quality: Pressure Onset quality: Gradual Timing: Constant Progression: Unchanged Chronicity: New Context: not recent URI Worsened by: Nothing Ineffective treatments: None tried Associated symptoms: tinnitus Associated symptoms: no cough and no fever Allergies Linda is allergic to benadryl [diphenhydramine hcl]; benzonatate; demerol [meperidine hcl]; geodon [ziprasidone hcl]; lorazepam; meclizine; amoxicillin; codeine; and tomato. Medications Outpatient Medications Prior to Visit Medication Sig Dispense Refill cyclobenzaprine 5 mg tablet TAKE 1 TABLET BY MOUTH EVERY 8 HOURS NEEDED 90 tablet 2 busPIRone 10 mg tablet Take 2 tablets by mouth 2 (two) times daily. 360 tablet 1 citalopram 40 mg tablet Take 1 tablet by mouth daily. 90 tablet 1 losartan 50 mg tablet Take 1 tablet by mouth 2 (two) times daily. 180 tablet 2 albuterol (PROAIR HFA) 90 mcg/actuation inhaler Inhale 2 Puffs every 6 (six) hours as needed forWheezing or Shortness of Breath. 1 Each 11 fluticasone propionate (FLOVENT HFA) 110 mcg/actuation inhaler Inhale 2 Puffs every 12 (twelve) hours. 1 Inhaler 11 levothyroxine 50 mcg tablet TAKE 1 TABLET BY MOUTH ONCE DAILY IN THE MORNING 90 tablet 3 rosuvastatin 10 mg tablet Take 1 tablet by mouth at bedtime. 90 tablet 3 amitriptyline 50 mg tablet Take 2 tablets by mouth at bedtime. 180 tablet 3 pregabalin 100 mg capsule Take 1 capsule by mouth 3 (three) times daily. 90 capsule 5 cyanocobalamin 1,000 mcg/mL injection 1 mL by Intramuscular route every 2 (two) weeks. Indications: B12 deficiency 15 mL 1 fluticasone propionate 50 mcg/actuation nasal spray USE 2 SPRAY(S) IN EACH NOSTRIL ONCE DAILY 1 Bottle 5 BIOTIN ORAL Take by mouth. LUTEIN ORAL Take by mouth. FERROUS SULFATE 325 mg (65 mg iron) tablet TAKE ONE TABLET BY MOUTH THREE TIMES DAILY WITH MEALS 90 tablet 5 cyanocobalamin (VITAMIN B-12) 1,000 mcg/mL injection 1 mL by Intramuscular route every 2 (two) weeks. 30 mL 0 CALCIUM ORAL Take by mouth daily. CRANBERRY FRUIT EXTRACT (CRANBERRY ORAL) Take by mouth daily. DOCOSAHEXANOIC ACID/EPA (FISH OIL ORAL) Take 1,000 mg by mouth daily. acetaminophen 650 mg CR tablet Take 1 tablet by mouth every 8 (eight) hours as needed for Pain. 90 tablet 5 coQ10, ubiquinol, 100 mg Cap Take 1 capsule by mouth daily. 30 capsule 11 OMEPRAZOLE (PRILOSEC ORAL) Take by mouth. cholecalciferol, vitamin D3, (VITAMIN D3) 1,000 unit tablet Take 1,000 Units by mouth daily. DOCUSATE SODIUM (COLACE ORAL) Take by mouth. METHYLCELLULOSE (FIBER THERAPY MISC) vitamin C with derrell hips (VITAMIN C) 1,000 mg tablet Take 1,000 mg by mouth daily. loratadine 10 mg tablet Take 1 tablet by mouth daily. 30 tablet 0 FOLIC ACID ORAL Take by mouth daily. MULTIVIT &MINERALS/FERROUS FUM (MULTI VITAMIN ORAL) Take by mouth. No facility-administered medications prior to visit. 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/06/2017 Submucous leiomyoma of uterus 02/16/2016 Transfusion history 2010 due to anemia Umbilical hernia 10/06/2017 Vitamin B12 deficiency Past Surgical History: Procedure Laterality Date CHOLECYSTECTOMY 1996 ENDOMETRIAL BIOPSY 2015 LIVER BIOPSY 2015 steatohepatitis RADICAL HYSTERECTOMY TUBAL LIGATION 1998 Social History Socioeconomic History Marital status: Spouse [...] Sexual Activity Alcohol use: No Alcohol/week: 0.0 standard drinks Drug use: No Sexual activity: Yes Partners: Male control/protection: Surgical Lifestyle Physical activity: Days per week: Not on file Minutes per session: Not on file Stress: Not on file Relationships Social connections: Talks on phone: Not on file Gets together: Not on file Attends pentecostalism service: Not on file Active member of [...] History Narrative No physical or domestic abuse Scientology Preference: Confucianism No pets Common law spouse, Mr. Bon Jha. Family History Problem Relation Age of Onset [...] NoFHx Osteoporosis NoFHx Psychiatry NoFHx Lipids NoFHx Review of Systems Constitutional: Negative. Negative for chills and fever. HENT: Positive for ear pain and tinnitus. Respiratory: Positive for shortness of breath. Negative for apnea, cough, choking, chest tightness and wheezing. Cardiovascular: Negative. Negative for chest pain, palpitations and leg swelling. Gastrointestinal: Negative. Skin: Negative. Neurological: Negative. Endocrine: Endocrine negative Vital Signs BP 128/83 | Pulse 112 | Temp 36.8 C (98.2 F) (Oral) | Resp 18 | Ht 5' 2" (1.575 m) | Wt 248lb 6 oz (112.7 kg) | SpO2 96% | BMI 45.43 kg/m Physical Exam Constitutional: She is oriented to person, place, and time. She appears well- developed and well-nourished. HENT: Head: Normocephalic. Right Ear: External ear normal. There is tenderness. A middle ear effusion is present. Left Ear: Hearing, tympanic membrane, external ear and ear canal normal. Nose: Nose normal. Neck: Normal range of motion. Neck supple. Cardiovascular: Normal rate, regular rhythm, normal heart sounds and intact distal pulses. Exam reveals no gallop and no friction rub. No murmur heard. Pulmonary/Chest: Effort normal and breath sounds normal. No respiratory distress. She has no wheezes. She has no rales. She exhibits no tenderness. Abdominal: Soft. Bowel sounds are normal. She exhibits no distension. There is no tenderness. Neurological: She is alert and oriented to person, place, and time. Skin: Skin is warm and dry. Capillary refill takes less than 2 seconds. No rash noted. No erythema. No pallor. Psychiatric: She has a normal mood and affect. Nursing note and vitals reviewed. Assessment/Plan 1. Otitis media: clindamycin given. Clinical references for Homecare instructions reviewed and copy given. 2. URI with cough and congestion: Bromfed given for symptoms relief. Covid test done and pending. In the meantime, quarantine in place, treat symptoms with OTC meds, Tylenol as needed . Stay in quarantine until 3 days fever free without antipyretics, 10 days from onset of your symptoms if you are symptoms free or until you hear otherwise. Follow up with your PCP as needed, and if with worsening ofsymptoms, symptoms unmanageable at home with current plan, go to the ER. 3. SOB: continue ventolin for asthma. Covid test done and pending ER if no relief, worse or new onset of symptoms. Plan of care, desired health behaviors, goals, and medication discussed with patient. Education resources provided and reviewed with AVS. Patient/guardian/family verbalized understanding & agrees to plan of care. This visit did not involve counseling and coordination that comprised more than 50% of the visit time. If applicable, the [facility] database was accessed to review any controlled substance prescription claims data. The [employer] prescription claims data in [employer] was reviewed to assess patient compliance with the medication treatment plan. Charlene Tom RN - 04/21/2020 11:40 AM CDT Linda Rahman is a 44 year old female in office for the following: Chief Complaint Patient presents with Other ear ringing x 2 months All vitals taken. Allergies reviewed. All medications reviewed. Fall risk assessed. Level of pain 0. [facility] [address] [place] [address] Charlene Schultz RN 04/21/2020 11:13 AM documented in this encounter Plan of Treatment Date Type Specialty Care Team Description 07/07/2020 Office Visit Obstetrics & Gynecology Netta Rausch PA-C [address] [place] [phone] 07/18/2020 Office Visit Pulmonary Disease Gracie Booth, [address] [phone] 08/01/2020 Office Visit Endocrinology Diabetes & Kinjal yMateo MD [address] [phone] 09/08/2020 Office Visit Psychiatry Parvez Hunter MD [address] [place] [address]. [place] [address] 01/20/2021 Office Visit Oncology Daphney Calderon NP [address] [place] [address] [phone] Name Type Priority Associated Diagnoses Order S chedule COVID-19 (PCR MOLECULAR LAB Routine Suspected Covid-1 9 Virus Expected: 04/21/2020, TESTING) Infection Expires: 2020 Health Maintenance Due Date Last Done Comments Breast Cancer Screening 02/09/2020 02/08/2019, 02/01/2018 (MAMMOGRAM) INFLUENZA VACCINE (#1) 2020 07/04/2019, 07/04/2019, 06/30/2018, Additional history exists Depression Screening 03/10/2021 03/10/2020, 03/10/2020 PAP SMEAR 01/30/2024 01/29/2019, 10/31/2015 DTaP,Tdap,and Td Vaccines (3 - Td) 08/10/2029 08/10/2019, 0 10/31/2015 PNEUMOCOCCAL 0-64 YEARS COMBINED Completed 08/10/2019, 08/2016, SERIES 04/01/2014 documented as of this encounter Results Not on filedocumented in this encounter Visit Diagnoses Diagnosis Acute otitis media, unspecified otitis m edia type - Primary URI with cough and congestion Suspected Covid-19 Virus Infection documented in this encounter Additional Health Concerns Infection Onset Date Last Indicated Resolved Time COVID-19 Rule Out 04/21/2020 04/21/2020 documented as of this encounter Insurance Payer Benefit Plan / Subscriber ID Effective Phone Address T ype Group Dates [facility] [id number] 2017-Pres [facility] - HEALTHCARE ent Adv HM O MANAGED DUAL COMPLETE MEDICARE HMO [facility] MEDICAID OF xxxxxxxxx 2016-Pre [phone] [address] [facility] sent [phone] [place] [address] (Work) [id number] documented as of this encounter Advance Directives Name Relationship Healthcare Agent Communication Relationship Laura Olivia Mother Primary healthcare agent Kei Rahman Father First alternate healthcare agent (Mobile)
--- OUTSIDE RECORDS SUMMARY | 2020-07-15 09:20 | XMS REPORT | Summary of Care ---
:1975 Author Organization [facility] Address [address] [place] [id number] Care Team Providers Name Role Phone Bryan Abernathy MD Primary Care Provider ANAT Diamond Unavailable Unavailable Kaley Dyer MD Unavailable Reason for Visit Reason Comments New Evaluation Bilateral calf pain, rt foot numbness X approx 4 days, no injury. pt stated she does have neuropa thy unsure if coming from that. Encounter Details Date Type Department Care Team Description 05/09/2020 Urgent Care [facility] Family Grecia Khanna, [employer] WORK[employer] [address] [place] [address] [address] Peripheral polyneuropathy (Primary Dx); Medicine - [place] Provider, [facility] Leg cramps; [address] [place] [address] [place] [address] Allergies Active Allergy Reactions Severity Noted Date Comments Amoxicillin Hives Medium 05/30/2015 Diphenhydramine Hcl Swelling High 04/12/2017 Benzonatate Swelling High 11/04/2016 Tightness in th roat, difficulty swal lowing and breathing Codeine Itching Low 10/12/2017 Meperidine Hcl Hallucinations High 05/30/2015 Ziprasidone Hcl Hives High 05/30/2015 Lorazepam Swelling High 06/27/2017 Hard to swallow Meclizine Anaphylaxis High 10/18/2016 Milk Other - See comments 05/09/2020 sneeze Tomato Other - See comments Low 04/03/2018 Tomato source reportedly causes excessiv e sneezing. But p t still eats it. documented as of this encounter (statuses as of 05/09/2020) Medications Medication Sig Dispensed Refills Start Date [...] as of this encounter (statuses as of 05/09/2020) Active Problems Problem Noted Date Morbid obesity [...] as of this encounter (statuses as of 05/09/2020) Immunizations Name Administration Dates Next Due Heamophilus [...] been in contact with No / Unsure 05/09/2020 10:06 AM CDT someone who was confirmed or suspected to have Coronavirus / COVID-19? documented as of this encounter Last Filed Vital Signs Vital Sign Reading Time Taken Comments Blood Pressure 107/77 05/09/2020 10:09 AM CDT Pulse 117 05/09/2020 10:09 AM CDT Temperature 36.8 C (98.2 F) 05/09/2020 10:09 AM CDT Respiratory Rate 18 05/09/2020 10:09 AM CDT Oxygen Saturation 98% 05/09/2020 10:09 AM CDT Inhaled Oxygen Concentration - - Weight 129.7 kg (286 lb) 05/09/2020 10:09 AM CDT Height 157.5 cm (5' 2") 05/09/2020 10:09 AM CDT Body Mass Index 52.31 05/09/2020 10:09 AM CDT documented in this encounter Patient Instructions Patient InstructionsKrystyna Khanna FNP - 05/09/2020 10:20 AM CDT Patient Education Leg Cramps A muscle cramp or spasm is a strong contraction of the muscle fibers. It is also called a charley horse. This may occur in the foot, calf, or thigh at night when the legs are elevated. If the spasm is prolonged, it can become very painful. This may be caused by sleeping in an uncomfortable position, muscle fatigue, poor muscle tone from lack of exercise and stretching, dehydration, electrolyte imbalance, diabetes, alcohol use, and certain medicine. Home care Drink plenty of fluids during the day to prevent dehydration. Stretch your legs before bedtime. Eat a diet high in potassium. These foods include fresh fruit, such as bananas, oranges, cantaloupe, and honeydew melon. It also includes apple, prune, orange, grape and pineapple juices. Other foods high in potassium are white, red, and wilkerson beans, baked potatoes, raw spinach, cod, flounder, halibut, salmon, and scallops. Talk with your healthcare provider about taking mineral and vitamin supplements that contain magnesium and vitamin B-12 if you are not already taking these. Other prescription medicines may also be used. Stay away from stimulants such as caffeine, nicotine, and decongestants. How to relieve an acute leg cramp For mild pain, getting out of the bed and walking may help. Some people find relief with heat andmassage. You can apply heat with a warm shower, bath, or compress. Some people feel better with a cold packs. You can make an ice pack by filling a plastic bag that seals at the top with ice cubes and then wrapping it with a thin towel. Try both and use the method that feels best for 15 to 20 minutes at a time. For severe pain, stretching the muscle that is in spasm may quickly relieve the pain. When the spasm is in your foot, your toes may curl up or down. To stretch the muscle in spasm, bend your toes in the opposite direction. If the spasm pulls your toes up, bend them down. If the spasmpulls them down, bend them up. When the spasm is in your calf, bend the ankle so the foot points upward toward your knee. When the spasm is in your thigh, bend or straighten the knee and hip until you feel relief. Follow-up care Follow up with your healthcare provider, or as advised. When to seek medical advice Call your healthcare provider right away if any of these occur: Walking makes your pain worse and rest makes it better You develop weakness in the affected leg Pain or frequency of spasms increases and is not controlled by the above measures [employer] last reviewed this educational content on 01/24/201819992318-8773 [employer]. [address] [place] [address]. All rights reserved. This information is not intended as a substitute for professional medical care. Always follow your healthcare professional's instructions. documented in this encounter Progress Notes Krystyna Khanna FNP - 05/09/2020 10:20 AM CDT Cc: Chief Complaint Patient presents with New Evaluation Bilateral calf pain, rt foot numbness X approx 4 days, no injury. pt stated she does have neuropathy unsure if coming from that. Linda Rahman is a 44 year old female. Patient has neuropathies with acute flare up of pain bilateral legs accompanied by numbness, none ofwhich is new just that current treatment regimen is no longer as effective. She is on lyrica 100mg TID and under care with neurologist Dr Farr. She recently had routine labs done with PCP with no significant findings especially with regards to electrolyte imbalance. She already has an upcoming appointment scheduled with neurology in the next 1-2 weeks. She has no other problems or concerns. Allergies Linda is allergic to benadryl [diphenhydramine hcl]; benzonatate; demerol [meperidine hcl]; geodon [ziprasidone hcl]; lorazepam; meclizine; amoxicillin; milk; codeine; and tomato. Medications Outpatient Medications Prior [...] 2016 steatohepatitis RADICAL HYSTERECTOMY TUBAL LIGATION 1998 Social History Socioeconomic History Marital status: Spouse name: Common Law spouse Number of children: 1 Years of education: 12 Highest education level: Not on file Occupational History Occupation: Learning Disability Social Needs Financial resource strain: Not on file Food insecurity Worry: Not on file Inability: Not on file Transportation needs Medical: Not on file Non-medical: Not on file Tobacco Use Smoking status: Former Smoker Packs/day: 0.50 Years: 25.00 Pack years: 12.50 Start date: 10/20/1982 Quit date: 10/20/2007 Years since quittin.5 Smokeless tobacco: Never Used Tobacco comment: 10 years ago Substance and Sexual Activity Alcohol use: No Alcohol/week: 0.0 standard drinks Drug use: No Sexual activity: Yes Partners: Male control/protection: Surgical Lifestyle Physical activity Days per week: Not on file Minutes per session: Not on file Stress: Not on file Relationships Social connections Talks on phone: Not on file Gets together: Not on file Attends gnosticism service: Not on file Active member of club or organization: Not on file Attends meetings of clubs or organizations: Not on file Relationship status: Not on file Intimate partner violence Fear of current or ex partner: Not [...] History Narrative No physical or domestic abuse Spiritism Preference: Moravian No pets Common law spouse, Mr. Bon [...] Lipids NoFHx Review of Systems Constitutional: Negative. Respiratory: Negative. Negative for apnea, cough, choking, chest tightness, shortness of breath andwheezing. Cardiovascular: Negative. Negative for chest pain, palpitations and leg swelling. Gastrointestinal: Negative. Musculoskeletal: Leg pain Skin: Negative. Neurological: Negative. Endocrine: Endocrine negative Vital Signs BP 107/77 | Pulse 117 | Temp 36.8 C (98.2 F) (Oral) | Resp 18 | Ht 5' 2" (1.575 m) | Wt 286lb (129.7 kg) | SpO2 98% | BMI 52.31 kg/m Physical Exam Vitals signs and nursing note reviewed. Constitutional: Appearance: She is well-developed. HENT: Head: Normocephalic. Right Ear: External ear normal. Left Ear: External ear normal. Nose: Nose normal. Neck: Musculoskeletal: Normal range of motion and neck supple. Cardiovascular: Rate and Rhythm: Normal rate and regular rhythm. Heart sounds: Normal heart sounds. No murmur. No friction rub. No gallop. Pulmonary: Effort: Pulmonary effort is normal. No respiratory distress. Breath sounds: Normal breath sounds. No wheezing or rales. Chest: Chest wall: No tenderness. Abdominal: General: Bowel sounds are normal. There is no distension. Palpations: Abdomen is soft. Tenderness: There is no abdominal tenderness. Musculoskeletal: Right lower leg: She exhibits tenderness. She exhibits no bony tenderness, no swelling, no deformity and no laceration. No edema. Left lower leg: She exhibits tenderness. She exhibits no swelling, no deformity and no laceration. No edema. Comments: Pulses are normal both extremity Skin: General: Skin is warm and dry. Capillary Refill: Capillary refill takes less than 2 seconds. Coloration: Skin is not pale. Findings: No erythema or rash. Neurological: Mental Status: She is alert and oriented to person, place, and time. Psychiatric: Mood and Affect: Mood normal. Assessment/Plan 1. Neuropathies: continue current therapies and care with neurologist as scheduled. 2. Leg cramp: CMP reviewed, no electrolyte imbalance. Recommend Magnesium, she differed to continue care with neurologist. If no relief, worse or new onset of symptoms, f/u with PCP, go to the ER or RTC. Clinical references for home care instructions reviewed and copy given. 3. Sinus tachycardia: Not new, continue care with category planner. Plan of care, desired health behaviors, goals, and medication discussed with patient. Education resources provided and reviewed with AVS. Patient/guardian/family verbalized understanding & agrees to plan of care. This visit did not involve counseling and coordination that comprised more than 50% of the visit time. If applicable, the [facility] database was accessed to review any controlled substance prescription claims data. The [employer] prescription claims data in [facility] was reviewed to assess patient compliance with the medication treatment plan. documented in this encounter Plan of Treatment Date Type Specialty Care Team Description 06/03/2020 Office Visit Cardiology Ricardo Dyer MD [address] [facility] [address] [place], [place] [phone] 07/07/2020 Office Visit Obstetrics & Gynecology Netta Rausch PA-C [address] [phone] 07/18/2020 Office Visit Pulmonary Disease Gracie Booth, DO [address] [place] [phone] 08/01/2020 Office Visit Endocrinology Diabetes & Mateo Coy MD [facility] [address] [facility] [address] [place], [place] [address] 09/08/2020 Office Visit Psychiatry Parvez Hunter MD [address] [place] [address]. [place] [address] 01/20/2021 Office Visit Oncology Daphney Calderon NP [address] [place] [address] [phone] Health Maintenance Due Date Last [...] this encounter Visit Diagnoses Diagnosis Peripheral polyneuropathy - Primary Unspecified hereditary and idiopathic pe ripheral neuropathy Leg cramps Cramp of limb Sinus tachycardia Other specified cardiac dysrhythmias documented in this encounter Insurance Payer Benefit Plan / Subscriber ID Effective Phone Address T ype Group Dates [facility] [id number] 2017-Pres Med[facility] HEALTHCARE - HEALTHCARE ent Adv HM O MANAGED DUAL COMPLETE MEDICARE HMO [facility] MEDICAID OF [id number] 2016-Pre [phone] [address] Med[place] sent [phone] [place] [address] (Work) [id number] documented as of this encounter Advance Directives Name Relationship Healthcare Agent Communication Relationship Laura Olivia Mother Health Care Agent Kei Rahman Father First [facility] [phone] Care Agent (Mobile)
--- OUTSIDE RECORDS SUMMARY | 2020-07-15 09:21 | XMS REPORT | Summary of Care ---
:1975 Author Organization [facility] Address [address] [place] [address] Care Team Providers Name Role Phone Bryan Abernathy MD Primary Care Provider ANAT Diamond Unavailable Unavailable Kaley Dyer MD Unavailable Reason for Visit Reason Comments Follow-up Encounter Details Date Type Department Care Team Description 05/16/2020 Telemedicine Visit [facility] Kath Farr MD Neuropathy of both feet (Primary Dx); Neurology, [place] [address] [facility] Meralgia pa resthetica, unspecified laterality; [facility] Essential tremor; [address] [place] [address] Myofa scial pain; [address] [address] MJ (obstructive sleep apnea) [place], [place] [phone] Allergies Active Allergy Reactions Severity Noted Date [...] as of this encounter (statuses as of 05/16/2020) Medications Medication Sig Dispensed Refills Start End Date Status Date FOLIC ACID ORAL Take by mouth 0 Active daily. MULTIVIT Take by mouth. 0 Acti ve &MINERALS/FERROUS FUM (MULTI VITAMIN ORAL) loratadine 10 mg Take 1 tablet by 30 tablet 0 Active tabletIndications: mouth daily. 7 Viral URI METHYLCELLULOSE 0 Acti ve (FIBER THERAPY MISC) DOCUSATE SODIUM Take by mouth. 0 Active (COLACE ORAL) vitamin C with derrell Take 1,000 mg by 0 Active hips (VITAMIN C) mouth daily. 1,000 mg tablet cholecalciferol, Take 1,000 Units 0 Active vitamin D3, by mouth daily. (VITAMIN D3) 1,000 unit tablet OMEPRAZOLE Take by mouth. 0 Act david (PRILOSEC ORAL) coQ10, ubiquinol, Take 1 capsule [...] cyanocobalamin 1 mL by 30 mL 0 Activ e (VITAMIN B-12) Intramuscular 8 1,000 mcg/mL route every 2 injectionIndication (two) weeks. s: B12 deficiency FERROUS SULFATE 325 TAKE ONE TABLET 90 tablet 5 Active mg (65 mg iron) BY MOUTH THREE 8 tabletIndications: TIMES DAILY WITH Acquired hemolytic MEALS anemia LUTEIN ORAL Take by mouth. 0 Ac tive BIOTIN ORAL Take by mouth. 0 Ac tive cyanocobalamin 1 mL by 15 mL 1 Activ e 1,000 mcg/mL Intramuscular 9 injectionIndication route every 2 s: B12 deficiency (two) weeks. Indications: B12 deficiency fluticasone USE 2 SPRAY(S) IN 1 Bottle 5 Active propionate 50 EACH NOSTRIL ONCE 9 mcg/actuation nasal DAILY sprayIndications: Acute bacterial sinusitis, URI with cough and congestion amitriptyline 50 mg Take 2 tablets by 180 tablet 3 Active tabletIndications: mouth at bedtime. 0 Tension headache rosuvastatin 10 mg Take 1 tablet by 90 tablet 3 Active tabletIndications: mouth at bedtime. 0 Mixed hyperlipidemia levothyroxine 50 TAKE 1 TABLET BY 90 tablet 3 Active mcg MOUTH ONCE DAILY 0 tabletIndications: IN THE MORNING Acquired hypothyroidism albuterol (PROAIR Inhale 2 Puffs 1 Each 11 Active HFA) 90 every 6 (six) 0 mcg/actuation hours as needed inhaler for Wheezing or Shortness of Breath. fluticasone Inhale 2 Puffs 1 Inhaler 11 Act david propionate (FLOVENT every 12 (twelve) 0 HFA) 110 hours. mcg/actuation inhaler losartan 50 mg Take 1 tablet by 180 tablet 2 Active tabletIndications: mouth 2 (two) 0 Sinus tachycardia, times daily. Essential hypertension, MADDOX (dyspnea on exertion), MJ (obstructive sleep apnea) citalopram 40 mg Take 1 tablet by 90 tablet 1 Active tabletIndications: mouth daily. 0 MDD (recurrent major depressive disorder) in remission, Anxiety disorder due to medical condition busPIRone 10 mg Take 2 tablets by 360 tablet 1 Active tabletIndications: mouth 2 (two) 0 Anxiety disorder times daily. due to medical condition cyclobenzaprine 5 TAKE 1 TABLET BY 90 tablet 2 Active mg MOUTH EVERY 8 0 tabletIndications: HOURS NEEDED Tension headache pregabalin 150 mg Take 1 capsule by 90 capsule 6 Active capsuleIndications: mouth 3 (three) 0 Neuropathy of both times daily. feet pregabalin 100 mg Take 1 capsule by 90 capsule 5 Discontinued capsuleIndications: mouth 3 (three) 0 20 Neuropathy of both times daily. feet documented as of this encounter (statuses as of 05/16/2020) Active Problems Problem Noted Date Morbid obesity [...] as of this encounter (statuses as of 05/16/2020) Immunizations Name Administration Dates Next Due Heamophilus [...] been in contact with No / Unsure 05/16/2020 4:26 PM CDT someone who was confirmed or suspected to have Coronavirus / COVID-19? documented as of this encounter Last Filed Vital Signs Not on filedocumented in this encounter Progress Notes Kath Farr MD - 05/16/2020 4:30 PM CDT TELEHEALTH NOTE Verbal consent obtained from Patient: Linda Rahman due to the COVID- 19 pandemic for telehealth services provided below. Communication with patient was conducted via Video Call. Location of Patient: Home Location of Provider: Clinic Date of Service: 05/16/2020 Chief Complaint: f/u for neuropathy HPI: Linda Rahman is a 44 year old female with Past Medical History: Diagnosis Date Abnormal uterine [...] anemia Umbilical hernia 10/06/2017 Vitamin B12 deficiency Today, mainly complained tingling on right foot despite increasing Lyrica to 100mg tid. Tolerate medication well, no side effect. MEDICATIONS: Current Outpatient Medications Medication Sig Dispense Refill pregabalin 150 mg capsule Take 1 capsule by mouth 3 (three) times daily. 90 capsule 6 cyclobenzaprine 5 mg tablet TAKE 1 TABLET [...] by mouth at bedtime. 180 tablet 3 cyanocobalamin 1,000 mcg/mL injection 1 mL by [...] (MULTI VITAMIN ORAL) Take by mouth. No current facility-administered medications for this visit. ROS General: (-) fever, (-) chills, (-) weight loss, (-) weight gain Skin: (-) rash, (-) lesion HEENT: (-) headache, (-) change in hearing, (-) change in vision, (-) nasal discharge, (-) sore throat (-)dizziness Neck: (-) pain, (-) difficulty swallowing Heme: (-) bleeding disorder Resp: (-) cough, (-) shortness of breath, (-) dyspnea on exertion Cardio: (-) chest pain, (-) palpitations, (-) syncope GI: (-) abdominal pain, (-) nausea, (-) vomiting, (-) diarrhea, (-) constipation, (-) melena : (-) dysuria, (-) hematuria, (-) increased frequency, (-) difficulty urinating, (-) difficulty initiating Endo: (-) heat intolerance, (-) diabetes, (-) cold intolerance, (-) polyuria, (- ) polydipsia, (-) renal insufficiency, (-) thyroid disease Neuro: (-) numbness, (-) tingling, (-) weakness (-) gait disturbance Back: (-) pain MS: (-) muscle pain, (-) joint pain, (-) claudication Psych: (-) anxiety (-) depression, (-) hallucination (-) personality change TELEHEALTH EXAM AAOx4 No facial weakness Speech is clear and coherent No weakness on limbs Not in acute distress ASSESSMENT/ PLAN Linda Rahman is a 44 year old female with PMH as above presenting with: Meralgia paresthetica, unspecified laterality (primary encounter diagnosis) Comment: improved with Lyrica. But today complained of numbness/tinlgingon right foot Will try to increase lyrica to 150mg tid. MJ (obstructive sleep apnea) Patient is not using CPAP Advise the patient to lose weight, Untreated MJ can cause headache. Tension headache/myofacial pain Will increase Elavil t0 100mg daily Flexiril 5mg tid prn Peripheral polyneuropathy increase pregabalin to 150 mg capsule tid If not helping enough, may switch to Cymbalta which she hasn't tried yet. Essential tremor Likely has underlying Essential tremors exacerbated by medications. Not bothersome now, continue observation After visit summary (AVS ) documentation will be available through [employer] for this encounter. A total of 15 minutes was spent on the Video Call, chart review, and coordination of care with specialists. Kath Farr MD documented in this encounter Plan of Treatment Date Type Specialty Care Team Description 06/03/2020 Office Visit Cardiology Ricardo Dyer MD [address] [place] [phone] 07/07/2020 Office Visit Obstetrics & Gynecology Netta Rausch PA-C [address] [place] [phone] 07/17/2020 Telemedicine Visit Neurology Kath Farr MD [address] [place] [phone] 07/18/2020 Office Visit Pulmonary Disease Gracie Booth DO [address] [place] [phone] 08/01/2020 Office Visit Endocrinology Diabetes Mateo De La Torre, & Metabolism [address] [place] [phone] 09/08/2020 Office Visit Psychiatry Parvez Hunter MD [address] [place] [address]. [place] [phone] 01/20/2021 Office Visit Oncology Daphney Calderon NP [address] [place] [address] [phone] Health Maintenance Due Date Last Done Comments [...] filedocumented in this encounter Visit Diagnoses Diagnosis Neuropathy of both feet - Primary Mononeuritis of lower limb, unspecified Meralgia paresthetica, unspecified later ality Essential tremor Essential and other specified forms of t remor Myofascial pain Mylagia and myositis, unspecified MJ (obstructive sleep apnea) Obstructive sleep apnea (adult) (pediatr ic) documented in this encounter Insurance Payer Benefit Plan / Subscriber ID Effective Phone Address T ype Group Dates [facility] [place] [id number] 2017-Pres [facility] - HEALTHCARE ent Adv HM O MANAGED DUAL COMPLETE MEDICARE HMO [facility] MEDICAID OF [id number] 2016-Pre [phone] [address] [place] sent [phone] [place] [address] (Work) [id number] documented as of this encounter Advance Directives Name Relationship Healthcare Agent Communication Relationship Laura Olivia Mother Health Care Agent Kei Lacey Father First [facility] Care Agent (Mobile)
--- OUTSIDE RECORDS SUMMARY | 2020-07-15 09:21 | XMS REPORT | Summary of Care ---
:1975 Author Organization [facility] Address [address] [place] [address] Care Team Providers Name Role Phone Bryan Abernathy MD Primary Care Provider ANAT Diamond Unavailable Unavailable Kaley Dyer MD Unavailable Reason for Visit Reason Comments Refill Request Encounter Details Date Type Department Care Team Description 05/26/2020 Refill [facility] Breast Health Daphney Calderon NP Refill Request [address] [address] [place], [place] [phone] Allergies Active Allergy Reactions Severity Noted Date [...] as of this encounter (statuses as of 05/26/2020) Medications Medication Sig Dispensed Refills Start End Status Date Date FOLIC ACID ORAL Take by mouth 0 Active daily. MULTIVIT Take by mouth. 0 Acti ve &MINERALS/FERROUS FUM (MULTI VITAMIN ORAL) loratadine 10 mg Take 1 tablet by 30 tablet 0 10/18/19 Active tabletIndications: mouth daily. 17 Viral URI METHYLCELLULOSE 0 Acti ve (FIBER THERAPY MISC) DOCUSATE SODIUM Take by mouth. 0 Active (COLACE ORAL) vitamin C with derrell Take 1,000 mg by 0 Active hips (VITAMIN C) mouth daily. 1,000 mg tablet cholecalciferol, Take 1,000 Units by 0 Active vitamin D3, mouth daily. (VITAMIN D3) 1,000 unit tablet OMEPRAZOLE Take by mouth. 0 Act david (PRILOSEC ORAL) coQ10, ubiquinol, Take 1 capsule by 30 capsule 11 10/11/19 Active 100 mg mouth daily. 18 CapIndications: Back muscle spasm, Right groin pain, Medication monitoring encounter, On statin therapy acetaminophen 650 Take 1 tablet by 90 tablet 5 11/04/19 Active mg CR mouth every 8 18 tabletIndications: (eight) hours as Peripheral needed for Pain. polyneuropathy, Muscle pain, Arthralgia of multiple joints CRANBERRY FRUIT Take by mouth 0 Active EXTRACT (CRANBERRY daily. ORAL) CALCIUM ORAL Take by mouth 0 Ac tive daily. DOCOSAHEXANOIC Take 1,000 mg by 0 Active ACID/EPA (FISH OIL mouth daily. ORAL) cyanocobalamin 1 mL by 30 mL 0 04/11/20 Activ e (VITAMIN B-12) Intramuscular route 18 1,000 mcg/mL every 2 (two) injectionIndication weeks. s: B12 deficiency FERROUS SULFATE 325 TAKE ONE TABLET BY 90 tablet 5 05/08/20 Active mg (65 mg iron) MOUTH THREE TIMES 18 tabletIndications: DAILY WITH MEALS Acquired hemolytic anemia LUTEIN ORAL Take by mouth. 0 Ac tive BIOTIN ORAL Take by mouth. 0 Ac tive fluticasone USE 2 SPRAY(S) IN 1 Bottle 5 03/26/20 Active propionate 50 EACH NOSTRIL ONCE 19 mcg/actuation nasal DAILY sprayIndications: Acute bacterial sinusitis, URI with cough and congestion amitriptyline 50 mg Take 2 tablets by 180 tablet 3 01/04/20 Active tabletIndications: mouth at bedtime. 20 Tension headache rosuvastatin 10 mg Take 1 tablet by 90 tablet 3 01/10/20 Active tabletIndications: mouth at bedtime. 20 Mixed hyperlipidemia levothyroxine 50 TAKE 1 TABLET BY 90 tablet 3 01/10/20 Active mcg MOUTH ONCE DAILY IN 20 tabletIndications: THE MORNING Acquired hypothyroidism albuterol (PROAIR Inhale 2 Puffs 1 Each 11 01/11/20 Active HFA) 90 every 6 (six) hours 20 mcg/actuation as needed for inhaler Wheezing or Shortness of Breath. fluticasone Inhale 2 Puffs 1 Inhaler 11 01/11/20 Act david propionate (FLOVENT every 12 (twelve) 20 HFA) 110 hours. mcg/actuation inhaler losartan 50 mg Take 1 tablet by 180 tablet 2 02/25/20 Active tabletIndications: mouth 2 (two) times 20 Sinus tachycardia, daily. Essential hypertension, MADDOX (dyspnea on exertion), MJ (obstructive sleep apnea) citalopram 40 mg Take 1 tablet by 90 tablet 1 03/10/20 Active tabletIndications: mouth daily. 20 MDD (recurrent major depressive disorder) in remission, Anxiety disorder due to medical condition busPIRone 10 mg Take 2 tablets by 360 tablet 1 03/10/20 Active tabletIndications: mouth 2 (two) times 20 Anxiety disorder daily. due to medical condition cyclobenzaprine 5 TAKE 1 TABLET BY 90 tablet 2 04/10/20 Active mg MOUTH EVERY 8 HOURS 20 tabletIndications: NEEDED Tension headache pregabalin 150 mg Take 1 capsule by 90 capsule 5 05/23/20 Active capsuleIndications: mouth 3 (three) 20 Neuropathy of both times daily. feet CYANOCOBALAMIN INJECT 1 ML (CC) 6 mL 1 05/26/20 Active 1,000 mcg/mL INTRAMUSCULARLY 20 injectionIndication EVERY TWO WEEKS ( s: Anemia, INDICATIONS B12 unspecified type DEFICIENCY ) cyanocobalamin 1 mL by 15 mL 1 03/28/20 Disco ntinued 1,000 mcg/mL Intramuscular route 19 020 injectionIndication every 2 (two) s: B12 deficiency weeks. Indications: B12 deficiency documented as of this encounter (statuses as of 05/26/2020) Active Problems Problem Noted Date Morbid obesity [...] as of this encounter (statuses as of 05/26/2020) Immunizations Name Administration Dates Next Due Heamophilus [...] this encounter Miscellaneous Notes Telephone Encounter - Johanny Alvarez LVN - 05/26/2020 8:25 AM CDTRefill Cyanocobalamin authorized sent refill to [facility] documented in this encounter Plan of Treatment Date Type Specialty Care Team Description 06/03/2020 Office Visit Cardiology Ricardo Dyer MD [address] [facility] [address] [phone] 07/07/2020 Office Visit Obstetrics & Gynecology Netta Rausch PA-C [address] [place] [phone] 07/17/2020 Telemedicine Visit Neurology Kath Farr MD [address] [place] [address] [phone] 07/18/2020 Office Visit Pulmonary Disease Gracie Booth DO [facility] [place] [phone] 08/01/2020 Office Visit Endocrinology Diabetes Mateo De La Torre, & Metabolism [address] 775 [phone] 09/08/2020 Office Visit Psychiatry Parvez Hunter MD [address] [place] [address]. [place] [phone] 01/20/2021 Office Visit Oncology Daphney Calderon, LAST [address] [place] [address] 77 555 [phone] Health Maintenance Due Date Last Done Comments [...] filedocumented in this encounter Visit Diagnoses Diagnosis Anemia, unspecified type documented in this encounter Insurance Payer Benefit Plan / Subscriber ID Effective Phone Address T e Group [facility] [id number] 2017-Pre Medicar e Adv HEALTHCARE - HEALTHCARE sent HMO MANAGED DUAL COMPLETE MEDICARE HMO [place] MED[place] OF [id number] 2016-Pr [phone] O BOX Medic aid [place] esent [id number] [place] [address] [facility] [id number] 2017-Pre P O BOX Beh avioral [facility] sent [id number] [place] [address] documented as of this encounter Advance Directives Name Relationship Healthcare Agent Communication Relationship Laura Olivia Mother Health Care Agent Kei Lacey Father First [facility] Health [phone] Care Agent (Mobile)
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
--- OUTSIDE RECORDS SUMMARY | 2020-07-15 09:22 | XMS REPORT | Summary of Care ---
:1975 Author Organization [facility] Address [address] [place] [address] Care Team Providers Name Role Phone Bryan Abernathy MD Primary Care Provider ANAT Diamond Unavailable Unavailable Kaley Dyer MD Unavailable Reason for Visit Reason Comments Refill Request Encounter Details Date Type Department Care Team Description 05/27/2020 Refill [facility] Pediatric and Carin Ospina MD Refill Request Adult Primary Care- [address] [place] [address] [place] [address], [address] [place] [phone] Allergies Active Allergy Reactions Severity Noted Date [...] as of this encounter (statuses as of 05/28/2020) Medications Medication Sig Dispensed Refills Start Date [...] by mouth. 0 Active ORAL) coQ10, ubiquinol, Take 1 capsule by 30 capsule 11 10/11/2017 Active 100 mg mouth daily. CapIndications: Back muscle spasm, Right groin pain, Medication monitoring encounter, On statin therapy acetaminophen 650 mg Take 1 tablet by 90 tablet 5 11/04/2017 Active CR mouth every 8 tabletIndications: (eight) hours as Peripheral needed [...] 1,000 Intramuscular route mcg/mL every 2 (two) weeks. injectionIndications : B12 deficiency FERROUS SULFATE 325 TAKE ONE [...] MORNING hypothyroidism albuterol (PROAIR Inhale 2 Puffs every 1 Each 11 01/11/2020 Active HFA) 90 6 (six) hours as mcg/actuation needed for Wheezing inhaler or Shortness of Breath. fluticasone Inhale 2 Puffs every 1 Inhaler 11 01/11/2020 Active propionate (FLOVENT 12 (twelve) hours. HFA) 110 mcg/actuation inhaler losartan 50 mg Take 1 [...] MOUTH EVERY 8 HOURS Tension headache NEEDED pregabalin 150 mg Take 1 capsule by 90 capsule 5 05/23/2020 Active capsuleIndications: mouth 3 (three) Neuropathy of both times daily. feet CYANOCOBALAMIN 1,000 INJECT 1 ML (CC) 6 mL 1 05/26/2020 Active mcg/mL INTRAMUSCULARLY injectionIndications EVERY TWO WEEKS ( : Anemia, INDICATIONS B12 unspecified type DEFICIENCY ) documented as of this encounter (statuses as of 05/28/2020) Active Problems Problem Noted Date Morbid obesity [...] as of this encounter (statuses as of 05/28/2020) Immunizations Name Administration Dates Next Due Heamophilus [...] [address] [facility] [address] [place] [phone] 07/07/2020 Office Visit Obstetrics & Gynecology Netta Rausch PA-C [facility] [place] [phone] 07/17/2020 Telemedicine Visit Neurology Kath Farr MD [address] [place] [address] [phone] 07/18/2020 Office Visit Pulmonary Disease Gracie Booth DO [address] [place] [phone] 08/01/2020 Office Visit Endocrinology Diabetes Mateo De La Torre, & Metabolism [address] [phone] 09/08/2020 Office Visit Psychiatry Parvez Hunter MD [address] [place] [address]. [place] [phone] 01/20/2021 Office Visit Oncology Daphney Calderon NP [address] [place] [address] 77 555 [phone] Health Maintenance Due Date Last Done Comments [...] ID Effective Phone Address T e Group Dates [employer] [id number] 2017-Pre Medicar e Adv HEALTHCARE - HEALTHCARE sent HMO MANAGED DUAL COMPLETE MEDICARE HMO [facility] MEDICAID OF [id number] 2016-Pr [phone] O BOX Medic aid [facility] [id number] [place] [address] [employer] [id number] 2017-Pre P O BOX Beh avioral [facility]AL BEHAVIORAL sent [id number] [place] [address] documented as of this encounter Advance Directives Name Relationship Healthcare Agent Communication Relationship Laura Olivia Mother Health Care Agent Kei Rahman Father [facility] Care Agent (Mobile)
--- OUTSIDE RECORDS SUMMARY | 2020-07-15 09:23 | XMS REPORT | Summary of Care ---
:1975 Author Organization [facility] Address [address] [place] [address] Care Team Providers Name Role Phone Bryan Abernathy MD Primary Care Provider ANAT Diamond Unavailable Unavailable Kaley Dyer MD Unavailable Reason for Visit Reason Comments Refill Request Encounter Details Date Type Department Care Team Description 06/16/[address] [facility] Neurology, Clear Kath Farr [place] [address] Floor [phone] [place] [address] [phone] Allergies Active Allergy Reactions Severity Noted Date [...] as of this encounter (statuses as of 06/16/2020) Medications Medication Sig Dispensed Refills Start Date [...] as of this encounter (statuses as of 06/16/2020) Active Problems Problem Noted Date Morbid obesity [...] as of this encounter (statuses as of 06/16/2020) Immunizations Name Administration Dates Next Due Heamophilus Influenza B 11/13/2015 Influenza Virus Vaccine 07/04/2019 Influenza Virus Vaccine Quad ID 18-64 YRS 06/15/2017 Influenza Virus Vaccine Quad IM 3+ YRS 06/30/2018 Influenza Virus Vaccine Quad IM Multi-dose 6+ [place] 08/05/2016 Influenza Virus Vaccine Recomb Quad IM, Preserv and 05/27/20, 07/04/2019 ABX Free 18-64 YRS Meningococcal B, OMV 03/07/2016 Meningococcal Polysaccharide (groups A, C, Y and 11/12/2015 W-135) conjugate vaccine (MCV4P) Pneumococcal 13 Conjugate, PCV13 (Prevnar 13) 03/07/2016 Pneumococcal Polysaccharide, PPSV23 (PNEUMOVAX) 08/10/2019, 04/01/2014 TDAP 08/10/2019, 10/31/2015 TDAP (ADACEL) VACCINE 08/10/2019 documented as of this encounter Social History Tobacco Use Types Packs/Day Years Used Date Former Smoker 0.5 25 10/20/1982 - 0 10/20/2007 Smokeless Tobacco: Never Used Comments: 10 years ago Alcohol Use Drinks/Week oz/Week Comments No 0 Standard drinks or equivalent 0.0 Sex Assigned at Date Recorded Not on file documented as of this encounter Last Filed Vital Signs Not on filedocumented in this encounter Miscellaneous Notes Telephone Encounter - [facility] - 06/16/2020 1:20 PM CDTNOV 07/06/20 KRISTINA 05/16/20 RX phoned in 05/23/20 by Sachin Rice to [facility] 90 Refills 5 documented in this encounter Plan of Treatment Date Type Specialty Care Team Description 07/07/2020 Office Visit Obstetrics & Gynecology Netta Rausch PA-C [address] [place] [address] [place] [phone] 07/09/2020 Office Visit Psychiatry Parvez Hunter MD [address] [place] [address]. [place] [phone] 07/15/2020 Office Visit Cardiology Ricardo Dyer MD [address] [phone] 07/17/2020 Telemedicine Visit Neurology Kath Farr MD [address] [place] [address] [phone] 07/18/2020 Office Visit Pulmonary Disease Gracie Booth DO [address] [place] [phone] 08/01/2020 Office Visit Endocrinology Diabetes Mateo De La Torre, & Metabolism [address] [facility] [address] [place], [place] [address] 09/08/2020 Office Visit Psychiatry Parvez Hunter MD [address] [place] [address]. [place] [phone] 01/20/2021 Office Visit Oncology Daphney Calderon NP [address] [place] [address], [place] [phone] Health Maintenance Due Date Last Done Comments Breast Cancer Screening 02/09/2020 02/08/2019, 02/01/2018 (MAMMOGRAM) Depression Screening 03/10/2021 03/10/2020, 03/10/2020 COLON CANCER SCREENING ANNUAL 2023 11/13/2015, 2014 FIT/FOBT Colorectal Cancer Screening 2023 PAP SMEAR 01/30/2024 01/29/2019, 10/31/2015 DTaP,Tdap,and Td Vaccines (3 - Td) 08/10/2029 08/10/2019, 1 10/10/2018, 10/31/2015 PNEUMOCOCCAL 0-64 YEARS COMBINED Completed 08/10/2019, 08/2016, SERIES 04/01/2014 INFLUENZA VACCINE Completed 05/27/2020, 07/04/2019, 07/04/2019, Additional history exists documented as of this encounter Results Not on filedocumented in this encounter Visit Diagnoses Diagnosis Neuropathy of both feet Mononeuritis of lower limb, unspecified documented in this encounter Insurance Payer Benefit Plan / Subscriber ID Effective Phone Address T e Group [facility] [id number] 2017-Pre Medicar e Adv HEALTHCARE - HEALTHCARE sent HMO MANAGED DUAL COMPLETE MEDICARE HMO [facility] MEDICAID OF [id number] 2016-Pr [phone] O BOX Medic aid [place] esent [id number] [place] [address] [facility] [id number] 2017-Pre P O BOX Beh avioral [facility]AL BEHAVIORAL sent [id number] [place] [address] documented as of this encounter Advance Directives Name Relationship Healthcare Agent Communication Relationship Laura Olivia Mother Health Care Agent Kei Rahman Father [facility] Health Care Agent (Mobile)
--- OUTSIDE RECORDS SUMMARY | 2020-07-15 09:23 | XMS REPORT | Summary of Care ---
:1975 Author Organization [facility] - [facility] Address [address] [place] [address] Care Team Providers Name Role Phone Bryan Abernathy MD Primary Care Provider ANAT Diamond Unavailable Unavailable Kaley Dyer MD Unavailable Reason for Visit Reason Comments Rx Concern/Question Encounter Details Date Type Department Care Team Description 06/13/2020 Telephone [facility] AngioSlide Family Carin Abernathy R x Concern/Question Medicine - Sarthak HOLLINS [address] [place] [address] Dr hernandez [address] [place] [address] [place] [address] [place], [place] [phone] Allergies Active Allergy Reactions Severity Noted Date [...] 325 TAKE ONE TABLET BY 90 tablet 05/08/2018 Active mg (65 mg iron) MOUTH THREE TIMES tabletIndications: DAILY WITH MEALS Acquired hemolytic anemia LUTEIN ORAL Take by mouth. 0 Ac tive BIOTIN ORAL Take by mouth. 0 Ac tive fluticasone USE 2 SPRAY(S) IN 1 Bottle 03/26/2019 Active propionate 50 EACH NOSTRIL ONCE [...] Notes Telephone Encounter - Azucena Parson - 06/16/2020 9:45 AM CDTPatient will call back to schedule appointment, she was told by [facility] nurse she was prediabetic and needed medication and diabetic supplies she wanted to double check with Dr. Abernathy. I advised patientto make appointment (fasting) for evaluation, she has not been seen in a while. elephone Encounter - Veronica Grijalva - 06/13/2020 2:44 PM CDTPt would like to talk to Raine about a new diabetic machine. documented in this encounter Plan of Treatment Date Type Specialty Care Team Description 07/07/2020 Office Visit Obstetrics & Gynecology Netta Rausch PA-C [address] [place] [phone] 07/09/2020 Office Visit Psychiatry Parvez Hunter MD [address] [place] [address]. [place] [address] 07/15/2020 Office Visit Cardiology Ricardo Dyer MD [address] [address] 07/17/2020 Telemedicine Visit Neurology Kath Farr MD [address] [place] [address] 07/18/2020 Office Visit Pulmonary Disease Gracie Booth DO [facility] [place] [address] 08/01/2020 Office Visit Endocrinology Diabetes Mateo De La Torre, & Metabolism 146 [facility] 208 [place], [place] [address] [phone] 09/08/2020 Office Visit Psychiatry Parvez Hunter MD 301 [facility] [place] [address] 01/20/2021 Office Visit Oncology Daphney Calderon NP 301 [place], [place] [address] Health Maintenance Due Date [...] Effective Phone Address T ype Group Dates [facility] [id number] 2017-Pre Medicar e Adv HEALTHCARE - HEALTHCARE sent HMO MANAGED DUAL COMPLETE MEDICARE HMO [facility] MEDICAID OF [id number] 2016-Pr [phone] O BOX Medic aid [place] esent [id number] [place] [address] [facility] [id number] 2017-Pre P O BOX Beh avioral BEHAVIORAL BEHAVIORAL sent [id number] [place] [address] documented as of this encounter Advance Directives Name Relationship Healthcare Agent Communication Relationship Laura Olivia Mother Health Care Agent Kei Rahman Father [facility] Care Agent (Mobile)
--- OUTSIDE RECORDS SUMMARY | 2020-07-15 09:24 | XMS REPORT | Summary of Care ---
:1975 Author Organization [facility] - Health Address [address] [place] [address] Care Team Providers Name Role Phone Bryan Abernathy MD Primary Care Provider ANAT Diamond Unavailable Unavailable Kaley Dyer MD Unavailable Encounter Details Date Type Department Care Team Description 06/19/2020 Orders Only [facility] Doctor Unassigned, No 301 [facility] [place] [address] 301 [place] [address] Allergies Active Allergy Reactions Severity Noted Date [...] as of this encounter (statuses as of 06/19/2020) Medications Medication Sig Dispensed Refills Start Date [...] as of this encounter (statuses as of 06/19/2020) Active Problems Problem Noted Date Morbid obesity [...] as of this encounter (statuses as of 06/19/2020) Immunizations Name Administration Dates Next Due Heamophilus Influenza B 11/13/2015 Influenza Virus Vaccine 07/04/2019 Influenza Virus Vaccine Quad ID 18-64 YRS 06/15/2017 Influenza Virus Vaccine Quad IM 3+ YRS 06/30/2018 Influenza Virus Vaccine Quad IM Multi-dose 6+ MO 08/05/2016 Influenza Virus Vaccine Recomb Quad IM, Preserv and 05/27/20 20, 07/04/2019 ABX Free 18-64 YRS Meningococcal B, [...] Obstetrics & Gynecology Netta Rausch PA-C [address] [place] [address] [phone] 07/09/2020 Office Visit Psychiatry Parvez Hunter MD [address] [place] [phone] 07/15/2020 Office Visit Cardiology Ricardo Dyer MD [address] [address] 07/17/2020 Telemedicine Visit Neurology Kath Farr MD [address] [place] [address] 07/18/2020 Office Visit Pulmonary Disease Gracie Booth DO [address] [place] [phone] 08/01/2020 Office Visit Endocrinology Diabetes Mateo De La Torre, & Metabolism [facility] [address] [facility] [address] [address] 09/08/2020 Office Visit Psychiatry Parvez Hunter MD [address] [place] [phone] 01/20/2021 Office Visit Oncology Daphney Calderon NP [address] [place] [address] [phone] Health Maintenance Due Date Last Done Comments [...] history exists documented as of this encounter Procedures Procedure Name Priority Date/Time Associated Diagnosis Comme nts VACCINATIONS - CONSENTS, Routine 06/19/2020 12:01 AM ELIGIBILITY, HISTORY CDT documented in this encounter Results Not on filedocumented in this encounter Insurance Payer Benefit Plan / Subscriber ID Effective Phone Address T ype Group Dates [facility] [id number] 2017-Pre Medicar e Adv HEALTHCARE - HEALTHCARE sent HMO MANAGED DUAL COMPLETE MEDICARE HMO [facility] MEDICAID OF [id number] 2016-Pr [phone] P O BOX Medic aid [place] esent [id number] [place] [address] [facility] [id number] 2017-Pre P O BOX Beh avioral BEH[facility]IORAL BEHAVIORAL sent [id number] [employer] [place] [address] documented as of this encounter Advance Directives Name Relationship Healthcare Agent Communication Relationship Laura Olivia Mother Health Care Agent Kei Rahman Father [facility] Health [phone] Care Agent (Mobile)
--- OUTSIDE RECORDS SUMMARY | 2020-07-15 09:24 | XMS REPORT | Summary of Care ---
:1975 Author Organization [facility] Address [address] [place] [address] Care Team Providers Name Role Phone Bryan Abernathy MD Primary Care Provider ANAT Diamond Unavailable Unavailable Kaley Dyer MD Unavailable Reason for Visit Reason Comments Refill Request Encounter Details Date Type Department Care Team Description 06/17/2020 Refill [facility] Neurology, Clear Kath Farr [place] [address] Floor [phone] [place] [address] [phone] Allergies Active Allergy Reactions Severity Noted Date [...] as of this encounter (statuses as of 06/17/2020) Medications Medication Sig Dispensed Refills Start Date [...] as of this encounter (statuses as of 06/17/2020) Active Problems Problem Noted Date Morbid obesity [...] as of this encounter (statuses as of 06/17/2020) Immunizations Name Administration Dates Next Due Heamophilus [...] Notes Telephone Encounter - [facility] - 06/17/2020 9:35 AM CDTNOV 07/17/20 KRISTIAN 05/16/20 RX was phoned in by Sachin Rice to [facility] in [place] 05/23/20 QTY 90 with 5 refills documented in this encounter Plan of Treatment Date Type Specialty Care Team Description 07/07/2020 Office Visit Obstetrics & Gynecology Netta Rausch PA-C [address] [place] [address] 208 [place] [address] 07/09/2020 Office Visit Psychiatry Parvez Hunter MD [address] [place] [address]. [place] [address] 07/15/2020 Office Visit Cardiology Ricardo Dyer MD [address] [place] [phone] 07/17/2020 Telemedicine Visit Neurology Kath Farr MD [address] [place] [address] 020393 07/18/2020 Office Visit Pulmonary Disease Gracie Booth DO [address] [place] [address] [phone] 08/01/2020 Office Visit Endocrinology Diabetes Mateo De La Torre, & Metabolism 146 [facility] 208 [place], [place] [address] 09/08/2020 Office Visit Psychiatry Parvez Hunter MD [address] [place] [address]. [place] [address] 01/20/2021 Office Visit Oncology Daphney Calderon NP [address] [place], [place] [address], [place] [address] Health Maintenance Due Date [...] ID Effective Phone Address T e Group [facility] [id number] 2017-Pre Medicar e Adv HEALTHCARE - HEALTHCARE sent HMO MANAGED DUAL COMPLETE MEDICARE HMO [facility] MEDICAID OF [id number] 2016-Pr [phone] P O BOX Medic aid [place] esent [id number] [place] [address] [facility] [id number] 2017-Pre P O BOX Beh avioral BEHAVIORAL BEHAVIORAL sent [id number] [place] [address] documented as of this encounter Advance Directives Name Relationship Healthcare Agent Communication Relationship Laura Olivia Mother Health Care Agent Kei Lacey Father [facility] Health Care Agent (Mobile)
--- OUTSIDE RECORDS SUMMARY | 2020-07-15 09:24 | XMS REPORT | Summary of Care ---
:1975 Author Organization [facility] Address [address] [place] [address] Care Team Providers Name Role Phone Bryan Abernathy MD Primary Care Provider ANAT Diamond Unavailable Unavailable Kaley Dyer MD Unavailable Reason for Referral (Routine) Status Reason Specialty Diagnoses / Referred By Referred To Procedures Contact Contact New Request Pulmonary Function Diagnoses Mild persistent asthma without complication Gracie Orellana, Technologist Procedures SIX MINUTE WALK Preferred Location: [place] [address] [place] [phone] Reason for Visit Reason Comments Orders Encounter Details Date Type Department Care Team Description 06/13/2020 Telephone [facility] Pulmonary Gracie Orellana DO Orders Clinic [address] Veronica Anaya 106 [place] [phone] Allergies Active Allergy Reactions Severity Noted Date [...] as of this encounter (statuses as of 06/18/2020) Medications Medication Sig Dispensed Refills Start Date [...] as of this encounter (statuses as of 06/18/2020) Active Problems Problem Noted Date Morbid obesity [...] as of this encounter (statuses as of 06/18/2020) Immunizations Name Administration Dates Next Due Heamophilus [...] this encounter Miscellaneous Notes Telephone Encounter - Gracie Orellana DO - 06/18/2020 1:43 PM CDTWe have no documentation of a need for oxygen. We can obtain a six minute walk test to see if oxygenlevels drop and if there is a need for supplemental oxygen. elephone Encounter - Gila Lagunas RN - 06/13/2020 4:35 PM CDTWill need to follow up by phone on request for oxygen. Follow up 07.18.20 KRISTINA 01.11.20 "History of Present Illness: Linda Rahman is a 44 year old female here for follow up of asthma and MJ 1. Asthma - uses inhaler 2 x per week or so, no night time symptoms. Uses Flovent every day. Overallasthma well controlled 2. MJ - not compliant - not interested in using it". Dr. ORELLANA Telephone Encounter - Keri Naik MA - 06/13/2020 4:19 PM BLANQUITA Zavala is out [facility]. Will route to Dr. Orellana and RN for chart review and assistance. Dr. Orellana is not in [facility] next week Th. elephone Encounter - Ida Holloway - 06/13/2020 2:35 PM CDTPatient is requesting a prescription for oxygen. Please advise. documented in this encounter Plan of Treatment Date Type Specialty Care Team Description 07/07/2020 Office Visit Obstetrics & Gynecology Netta Rausch PA-C [address] [place] [phone] 07/09/2020 Office Visit Psychiatry Parvez Hunter MD [address] [place] [address] [phone] 07/15/2020 Office Visit Cardiology Ricardo Dyer MD [address] [place] [phone] 07/17/2020 Telemedicine Visit Neurology Kath Farr MD [address] [place] [address] 07/18/2020 Office Visit Pulmonary Disease Gracie Orellana DO [address] [place] [phone] 08/01/2020 Office Visit Endocrinology Diabetes Mateo De La Torre, & Metabolism [address] [place] [address] [phone] 09/08/2020 Office Visit Psychiatry Parvez Hunter MD [address] [place] [phone] 01/20/2021 Office Visit Oncology Daphney Calderon NP [address] [place] [address] Name Type Priority Associated Diagnoses Order S chedule SIX MINUTE WALK PULMONARY FUNCTION Routine Mild persistent Ord ered: Preferred Location: LAB asthma without 2019 [facility] complication Health Maintenance Due Date Last Done Comments [...] filedocumented in this encounter Visit Diagnoses Diagnosis Mild persistent asthma without complicat ion - Primary Unspecified asthma documented in this encounter Insurance Payer Benefit Plan / Subscriber ID Effective Phone Address T [facility] [id number] 2017-Pre Medicar e Adv HEALTHCARE - HEALTHCARE sent HMO MANAGED DUAL COMPLETE MEDICARE HMO [facility] MEDICAID OF [id number] 2016-Pr [phone] P O BOX Medic aid [place] esent [id number] [place] [address] [facility] [id number] 2017-Pre P O BOX Beh avioral BEHAVIORAL BEHAVIORAL sent [id number] [employer] [place] [address] documented as of this encounter Advance Directives Name Relationship Healthcare Agent Communication Relationship Laura Olivia Mother Health Care Agent Kei Estebanuillon Father [facility] Care Agent (Mobile)
--- OUTSIDE RECORDS SUMMARY | 2020-07-15 09:24 | XMS REPORT | Summary of Care ---
:1975 Author Organization [facility] Address [address] [place] [address] Care Team Providers Name Role Phone Bryan Abernathy MD Primary Care Provider ANAT Diamond Unavailable Unavailable Kaley Dyer MD Unavailable Reason for Visit Reason Comments Refill Request Encounter Details Date Type Department Care Team Description 06/18/2020 Refill [facility] Family Medicine Carin Odell MD Refill Request - [address] [place] [address] [place] [address] [phone] Allergies Active Allergy Reactions Severity Noted Date [...] Obstetrics & Gynecology Netta Rausch PA-C [address] [phone] 07/09/2020 Office Visit Psychiatry Parvez Hunter MD [address] [place] [phone] 07/15/2020 Office Visit Cardiology Ricardo Dyer MD [address] [address] 07/17/2020 Telemedicine Visit Neurology Kath Farr MD [address] [place] [address] 07/18/2020 Office Visit Pulmonary Disease Gracie Booth DO [address] [place] [address] [phone] 08/01/2020 Office Visit Endocrinology Diabetes Mateo De La Torre, & Metabolism [address] [place] [address] [phone] 09/08/2020 Office Visit Psychiatry Parvez Hunter MD [address] [place] [phone] 01/20/2021 Office Visit Oncology Daphney Calderon NP [address] [place] [address] [phone] Health Maintenance Due Date Last Done Comments [...] / Subscriber ID Effective Phone Address T [facility] [id number] 2017-Pre Medicar e Adv HEALTHCARE - HEALTHCARE sent HMO MANAGED DUAL COMPLETE MEDICARE HMO [facility] MEDICAID OF [id number] 2016-Pr [phone] P O BOX Medic aid [facility] [id number] [place] [address] [facility] [id number] 2017-Pre P O BOX Beh avioral BEHAVIORAL BEHAVIORAL sent [id number] [place] [address] documented as of this encounter Advance Directives Name Relationship Healthcare Agent Communication Relationship Chaparrochristiano Olivia Mother Health Care Agent Kei Rahman Father [facility] Care Agent (Mobile)
--- OUTSIDE RECORDS SUMMARY | 2020-07-15 09:25 | XMS REPORT | Summary of Care ---
:1975 Author Organization [facility] - [facility] Address [address] [place] [address] Care Team Providers Name Role Phone Bryan Aberanthy MD Primary Care Provider ANAT Diamond Unavailable Unavailable Kaley Dyer MD Unavailable Reason for Visit Reason Comments Rx Concern/Question Encounter Details Date Type Department Care Team Description 06/25/2020 Telephone [facility] arGEN-X Family Carin Abernathy R x Concern/Question Medicine - Sarthak HOLLINS [address] [place] [address] Dr hernandez [address] [place] [address] [place] [address] [place], [place] [phone] Allergies Active Allergy Reactions Severity Noted Date [...] as of this encounter (statuses as of 06/25/2020) Medications Medication Sig Dispensed Refills Start Date [...] ubiquinol, Take 1 capsule by 30 capsule 10/11/2017 Active 100 mg mouth daily. CapIndications: [...] as of this encounter (statuses as of 06/25/2020) Active Problems Problem Noted Date Morbid obesity [...] as of this encounter (statuses as of 06/25/2020) Immunizations Name Administration Dates Next Due Heamophilus [...] Notes Telephone Encounter - Azucena Parson - 06/25/2020 10:56 AM CDTPatient has a glucometer and not sure if she needs one. Patient will call back for appointment. Telephone Encounter - Karen Ambrose Mj - 06/25/2020 8:55 AM CDTPatient is calling stating she is received a phone call from a pharmaceutical company through medicare regarding her diabetic machine. Patient would like to talk to a nurse to see what she soul do regarding this. documented in this encounter Plan of Treatment Date Type Specialty Care Team Description 06/27/2020 Telemedicine Visit Family Medicine Carin Abernathy MD [address] [place] [phone] 07/07/2020 Office Visit Obstetrics & Gynecology Netta Rausch PA-C [address] [place] [phone] 07/09/2020 Office Visit Psychiatry Parvez Hunter MD [address] [place] [address]. [place] [address] 07/15/2020 Office Visit Cardiology Ricardo Dyer MD [address] [place] [phone] 07/17/2020 Telemedicine Visit Neurology Kath Farr MD [address] [place] [address] 07/18/2020 Office Visit Pulmonary Disease Gracie Booth DO [address] [place] [address] [phone] 08/01/2020 Office Visit Endocrinology Diabetes Mateo De La Torre, & Metabolism [address] [facility] 208 [place], [place] [address] [phone] 09/08/2020 Office Visit Psychiatry Parvez Hunter MD 301 [facility] [place] [address] 01/20/2021 Office Visit Oncology Daphney Calderon NP [address] [place] [address] Health Maintenance Due Date Last [...] Effective Phone Address T ype Group Dates [facility] [id number] 2017-Pre Medicar e Adv HEALTHCARE - HEALTHCARE sent HMO MANAGED DUAL COMPLETE MEDICARE HMO [facility] MEDICAID OF [id number] 2016-Pr [phone] P O BOX Medic aid [place] esent [id number] [place] [address] [facility] [id number] 2017-Pre P O BOX Beh avioral BEHAVIORAL BEHAVIORAL sent [id number] [place] [address] documented as of this encounter Advance Directives Name Relationship Healthcare Agent Communication Relationship Laura Olivia Mother Health Care Agent Kei Rahman [facility] Care Agent (Mobile)
--- OUTSIDE RECORDS SUMMARY | 2020-07-15 09:26 | XMS REPORT | Summary of Care ---
:1975 Author Organization [facility] - [facility] Address [address] [place] [address] Care Team Providers Name Role Phone Bryan Abernathy MD Primary Care Provider ANAT Diamond Unavailable Unavailable Kaley Dyer MD Unavailable Reason for Visit Reason Comments Cancellation unable to reach patient for telehealth visit Encounter Details Date Type Department Care Team Description 06/27/2020 Telemedicine Visit [facility] Family YAN Abernathy CELLATION Medicine - Sarthak [place] MD (Primary Dx) [address] [place] [address] De León, [place] [address] [phone] Allergies Active Allergy Reactions Severity Noted Date [...] as of this encounter (statuses as of 06/27/2020) Medications Medication Sig Dispensed Refills Start Date [...] mg Take 1 tablet by 90 tablet 11/04/2017 Active CR mouth every 8 tabletIndications: [...] as of this encounter (statuses as of 06/27/2020) Active Problems Problem Noted Date Morbid obesity [...] as of this encounter (statuses as of 06/27/2020) Immunizations Name Administration Dates Next Due Heamophilus [...] on filedocumented in this encounter Progress Notes Carin Abernathy MD - 06/27/2020 3:15 PM CDTUnable to reach the patient for her telehealth visit despite multiple attempts. I instructed the [facility] staff to contact the patient to get her scheduled for a F2F visit since she needs labs anyway. documented in this encounter Plan of Treatment Date Type Specialty Care Team Description 07/07/2020 Office Visit Obstetrics & Gynecology Netta Rausch, CLAUDIA [address] [place] [phone] 07/09/2020 Office Visit Psychiatry Parvez Hunter MD [address] [place] [address] [phone] 07/14/2020 Office Visit Family Medicine Carin Abernathy MD [address] [place] [phone] 07/15/2020 Office Visit Cardiology Ricardo Dyer MD [address] [place] [phone] 07/17/2020 Telemedicine Visit Neurology Kath Farr MD [facility] [place], [place] [phone] 07/18/2020 Office Visit Pulmonary Disease Gracie Booth DO [facility] [place] [phone] 08/01/2020 Office Visit Endocrinology Diabetes Mateo De La Torre, & Metabolism [address] [place] [address] [phone] 09/08/2020 Office Visit Psychiatry Parvez Hunter MD 301 [facility] [place] [address] 01/20/2021 Office Visit Oncology Dapheny Calderon NP 301 [place], [place] [address] Health Maintenance Due Date Last Done Comments [...] filedocumented in this encounter Visit Diagnoses Diagnosis CANCELLATION - Primary documented in this encounter Insurance Payer Benefit Plan / Subscriber ID Effective Phone Address T ype Group Dates [facility] [id number] 2017-Pres Medica re HEALTHCARE - HEALTHCARE ent Adv HM O MANAGED DUAL COMPLETE MEDICARE HMO [facility] MEDICAID OF [id number] 2016-Pre [phone] [address] Medi caid [place] sent [id number] [place] [address] (Work) [id number] documented as of this encounter Advance Directives Name Relationship Healthcare Agent Communication Relationship Laura Olivia Mother Health Care Agent Kei Rahman Father [facility] Care Agent ([place])[phone] ([place])
[2020-07-15 09:28] LABS: Absolute Lymphocytes (CBC) 0.8 K/uL (0.7-4.9); Basophils % 1.2 % (0-1.3); Lymphocytes % 5.4 % (15.3-44.8)
[2020-07-15] MEDS ORDERED: ONDANSETRON 4 MG/2 ML VIAL ONE (09:48)
[2020-07-15] MEDS ORDERED: FAMOTIDINE 20 MG/2 ML VIAL IV ONE (09:48)
[2020-07-15] MEDS ORDERED: NA CHLORIDE 0.9% 1,000 ML ONE (09:48)
[2020-07-15 10:05] LABS: Albumin 4.3 g/dL (3.4-5.0); Bilirubin Direct 0.6 mg/dL (0-0.2); Bilirubin Total 1.6 mg/dL (0.2-1.0); Potassium 4.1 mmol/L (3.5-5.1); Protein, Total 8.3 g/dL (6.4-8.2)
[2020-07-15] MEDS ORDERED: DIPHENHYDRAMINE 50 MG/ML VIAL ONE (10:39)
[2020-07-15] MEDS ORDERED: KETOROLAC 30 MG/ML INJ ONE (10:40)
--- NOTE | 2020-07-15 10:49 | RAD REPORT ---
EXAM DESCRIPTION: RAD - Chest Single View - 07/15/2020 10:39 am CLINICAL HISTORY: COUGH Chest pain. COMPARISON: Chest Pa And Lat (2 Views) dated 11/03/2019; Chest Single View dated 05/24/2019; Chest Sing le View dated 08/14/2017; Chest Single View dated 05/30/2017 FINDINGS: Portable technique limits examination quality. Interstitial markings are mildly prominent bilaterally. The heart is normal in size. No displaced fra ctures. IMPRESSION: Mild interstitial pneumonitis is possible bilaterally.
[2020-07-15] MEDS ORDERED: INSULIN -REGULAR HUMAN 50 UNIT/0.5 ML ML ONE (12:36)
--- NOTE | 2020-07-15 13:00 | EDPHYS ---
Physician Documentation [facility] Name: Linda Rahman Age: 44 yrs Sex: Female : 1975 Arrival Date: 07/15/2020 Time: 08:59 Bed 19 Private MD: ED Physician Mateo Odell HPI: 07/15 15:48 This 44 yrs old Female presents to ER via Ambulatory with complaints of Cough kdr and congestion for 4 days. 15:48 The patient presents to the emergency department with. kdr 15:51 The patient or guardian reports cough, that is intermittent, described as mild, kdr difficulty breathing. Onset: The symptoms/episode began/occurred gradually, 4 day(s) ago. Severity of symptoms: At their worst the symptoms were mild, just prior to arrival, in the emergency department the symptoms are unchanged. Modifying factors: The symptoms are alleviated by nothing, the symptoms are aggravated by exertion, heat, pollen, talking. Associated signs and symptoms: Pertinent positives: chest pain, diarrhea, earache, nausea, vomiting, this patient has no pertinent positive symptoms Pertinent negatives: fever. The patient has not experienced similar symptoms in the past. The patient has been recently seen by a physician: the patient's primary care provider. 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 - Social history:: Smoking status: Patient denies any tobacco usage or history of. ROS: 15:51 Constitutional: Negative for fever, chills, and weight loss, Eyes: Negative for injury, kdr pain, redness, and discharge, ENT: Negative for injury, pain, and discharge, Neck: Negative for injury, pain, and swelling, Cardiovascular: Negative for chest pain, palpitations, and edema, Respiratory: Negative for shortness of breath, cough, wheezing, and pleuritic chest pain, Abdomen/GI: Negative for abdominal pain, nausea, vomiting, diarrhea, and constipation, Back: Negative for injury and pain, : Negative for injury, bleeding, discharge, and swelling, MS/Extremity: Negative for injury and deformity, Psych: Negative for depression, anxiety, suicide ideation, homicidal ideation, and hallucinations, Allergy/Immunology: Negative for hives, rash, and allergies, Endocrine: Negative for neck swelling, polydipsia, polyuria, polyphagia, and marked weight changes, Hematologic/Lymphatic: Negative for swollen nodes, abnormal bleeding, and unusual bruising. 15:51 Neuro: Positive for headache, Negative for tinnitus, tremor, visual changes, weakness, acute changes. Exam: 15:51 Constitutional: This is a well developed, well nourished patient who is awake, alert, kdr and in no acute distress. Head/Face: Normocephalic, atraumatic. Eyes: Pupils equal round and reactive to light, extra-ocular motions intact. Lids and lashes normal. Conjunctiva and sclera are non-icteric and not injected. Cornea within normal limits. Periorbital areas with no swelling, redness, or edema. Neck: Trachea midline, no thyromegaly or masses palpated, and no cervical lymphadenopathy. Supple, full range of motion without nuchal rigidity, or vertebral point tenderness. No Meningismus. Chest/axilla: Normal chest wall appearance and motion. Nontender with no deformity. No lesions are appreciated. Cardiovascular: Regular rate and rhythm with a normal S1 and S2. No gallops, murmurs, or rubs. Normal PMI, no JVD. No pulse deficits. Abdomen/GI: Soft, non-tender, with normal bowel sounds. No distension or tympany. No guarding or rebound. No evidence of tenderness throughout. Back: No spinal tenderness. No costovertebral tenderness. Full range of motion. 15:51 Respiratory: the patient does not display signs of respiratory distress, Respirations: no acute changes. Vital Signs: 09:15 BP 143 / 93; Pulse 118; Resp 20; Temp 97.2(TE); Pulse Ox 94% on R/A; Weight 100 kg; hb Height 5 ft. 4 in. (162.56 cm); Pain 5/10; 10:47 BP 121 / 83; Pulse 107; Resp 15; Pulse Ox 94% ; jl7 12:50 BP 125 / 71; Pulse 103; Resp 17; Pulse Ox 96% ; jl7 09:15 Body Mass Index 37.84 (100.00 kg, 162.56 cm) hb MDM: 12:59 Patient medically screened. kdr 15:51 Data reviewed: vital signs, nurses notes, lab test result(s), EKG, radiologic studies. kdr Counseling: I had a detailed discussion with the patient and/or guardian regarding: the historical points, exam findings, and any diagnostic results supporting the discharge/admit diagnosis, lab results, radiology results, the need for outpatient follow up. 07/15 09:18 Order name: Basic Metabolic Panel; Complete Time: 11:48 kdr 07/15 09:18 Order name: CBC with Diff; Complete Time: 11:48 kdr 07/15 09:18 Order name: Hepatic Function; Complete Time: 11:48 kdr 07/15 09:18 Order name: Lipase; Complete Time: 11:48 kdr 07/15 09:56 Order name: CXR XRAY; Complete Time: 11:48 kdr 07/15 09:18 Order name: IV Saline Lock; Complete Time: 09:19 kdr 07/15 09:18 Order name: Labs collected and sent; Complete Time: 09:19 kdr Administered Medications: 09:42 Drug: NS 0.9% 1000 ml Route: IV; Rate: 1 bolus; Site: right antecubital; jl7 10:49 Follow up: Response: No adverse reaction; IV Status: Completed infusion; IV Intake: jl7 1000ml 09:42 Drug: Zofran (Ondansetron) 4 mg Route: IVP; Site: right antecubital; jl7 10:49 Follow up: Response: No adverse reaction; Nausea is decreased jl7 09:42 Drug: Pepcid 20 mg Route: IVP; Site: right antecubital; jl7 10:49 Follow up: Response: No adverse reaction jl7 10:31 Drug: TORadol - Ketorolac 15 mg Route: IVP; Site: right antecubital; jl7 10:49 Follow up: Response: No adverse reaction; Pain is decreased jl7 10:31 Drug: Benadryl 12.5 mg Route: IVP; Site: right antecubital; jl7 10:48 Follow up: Response: No adverse reaction jl7 12:30 Drug: Insulin Regular Human 10 units {Co-Signature: em (Reyes Vance RN).} Route: IVP; jl7 Site: right antecubital; 13:02 Follow up: Response: Blood sugar is lowered jl7 Disposition: 07/15/20 12:59 Discharged to Home. Impression: Pneumonitis. - Condition is Stable. - Discharge Instructions: Nausea and Vomiting, Adult, Ghmk-eo-Tull, Pneumonitis. - Prescriptions for Medrol (Malik) 4 mg Oral Tablets, Dose Pack - take 1 tablet by ORAL route as directed - follow package instructions; 1 packet. Albuterol Sulfate 90 mcg/actuation - inhale 1-2 puff by INHALATION route every 4-6 hours; 1 Inhaler. promethazine 25 mg Oral Tablet - take 1 tablet by ORAL route every 6 hours As needed; 20 tablet. - Medication Reconciliation Form, Thank You Letter form. - Follow up: Private Physician; When: 2 - 3 days; Reason: If symptoms return, Further diagnostic work-up, Recheck today's complaints, Continuance of care, Re-evaluation by your physician. - Problem is an acute exacerbation. - Symptoms have improved. Signatures: Dispatcher [employer] Mateo Fernandez MD MD kdr Anushka Cheung RN RN Jayden Bond RN RN jl7 Reyes Vance RN em Corrections: (The following items were deleted from the chart) 13:06 12:59 07/15/2020 12:59 Discharged to Home. Impression: Pneumonitis. Condition is jl7 Stable. Forms are Medication Reconciliation Form, Thank You Letter, Antibiotic Education, Prescription Opioid Use. Follow up: Private Physician; When: 2 - 3 days; Reason: If symptoms return, Further diagnostic work-up, Recheck today's complaints, Continuance of care, Re-evaluation by your physician. Problem is an acute exacerbation. Symptoms have improved. kdr 15:51 15:48 This 44 yrs old Female presents to ER via Ambulatory with complaints of kdr Nausea/Vomiting. kdr
--- NOTE | 2020-07-15 13:00 | ER ---
Nurse's Notes [facility] Name: Linda Rahman Age: 44 yrs Sex: Female : 1975 Arrival Date: 07/15/2020 Time: 08:59 Bed 19 Private MD: Diagnosis: Pneumonitis Presentation: 07/15 09:15 Chief complaint: SOB and cough x 4 days. Coronavirus screen: Client presents with at hb least one sign or symptom that may indicate coronavirus-19. Standard/surgical mask placed on the client. Provider contacted for isolation considerations. Ebola Screen: No symptoms or risks identified at this time. Initial Sepsis Screen: Does the patient meet any 2 criteria? RR > 20 per min. HR > 90 bpm. Yes Does the patient have a suspected source of infection? No. Patient's initial sepsis screen is negative. Risk Assessment: Do you want to hurt yourself or someone else? Patient reports no desire to harm self or others. Onset of symptoms was July 12, 2020. 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 - Social history:: Smoking status: Patient denies any tobacco usage or history of. Screenin:44 Abuse screen: Denies threats or abuse. Denies injuries from another. Nutritional jl7 screening: No deficits noted. Tuberculosis screening: No symptoms or risk factors identified. Fall Risk IV access (20 points). Total Butt Fall Scale indicates No Risk (0-24 pts). Assessment: 09:44 General: Appears in no apparent distress. uncomfortable, Behavior is calm, cooperative, jl7 appropriate for age. Pain: Denies pain. Neuro: Level of Consciousness is awake, alert, obeys commands, Oriented to person, place, time, situation. Cardiovascular: Patient's skin is warm and dry. Respiratory: Airway is patent Respiratory effort is even, unlabored, Respiratory pattern is regular, symmetrical. GI: Abdomen is non-distended, Reports nausea, vomiting. : No signs and/or symptoms were reported regarding the genitourinary system. Derm: Skin is pink, warm \T\ dry. 11:00 Reassessment: Patient appears in no apparent distress at this time. Patient and/or jl7 family updated on plan of care and expected duration. Pain level reassessed. Patient is alert, oriented x 3, equal unlabored respirations, skin warm/dry/pink. Patient states feeling better. Patient states symptoms have improved. 12:00 Reassessment: Patient appears in no apparent distress at this time. No changes from jl7 previously documented assessment. Patient and/or family updated on plan of care and expected duration. Pain level reassessed. Patient is alert, oriented x 3, equal unlabored respirations, skin warm/dry/pink. Vital Signs: 09:15 BP 143 / 93; Pulse 118; Resp 20; Temp 97.2(TE); Pulse Ox 94% on R/A; Weight 100 kg; hb Height 5 ft. 4 in. (162.56 cm); Pain 5/10; 10:47 BP 121 / 83; Pulse 107; Resp 15; Pulse Ox 94% ; jl7 12:50 BP 125 / 71; Pulse 103; Resp 17; Pulse Ox 96% ; jl7 09:15 Body Mass Index 37.84 (100.00 kg, 162.56 cm) hb ED Course: 08:59 Patient arrived in ED. ds1 09:11 Mateo Odell MD is Attending Physician. kdr 09:12 Jayden Bond RN is Primary Nurse. jl7 09:16 Triage completed. hb 09:18 Inserted saline lock: 20 gauge in right antecubital area, using aseptic technique. mt Blood collected. 09:20 Initial lab(s) drawn, by ED staff, sent to lab. jl7 09:44 Patient has correct armband on for positive identification. Bed in low position. Call jl7 light in reach. Side rails up X2. Pulse ox on. NIBP on. 10:33 No provider procedures requiring assistance completed. jl7 10:39 CXR XRAY In Process Unspecified. EDMS 10:47 Arm band placed on right wrist. jl7 12:12 Notified ED physician of a critical lab result(s). glucose 433. jl7 13:05 IV discontinued, intact, bleeding controlled, No redness/swelling at site. Pressure jl7 dressing applied. Administered Medications: 09:42 Drug: NS 0.9% 1000 ml Route: IV; Rate: 1 bolus; Site: right antecubital; jl7 10:49 Follow up: Response: No adverse reaction; IV Status: Completed infusion; IV Intake: jl7 1000ml 09:42 Drug: Zofran (Ondansetron) 4 mg Route: IVP; Site: right antecubital; jl7 10:49 Follow up: Response: No adverse reaction; Nausea is decreased jl7 09:42 Drug: Pepcid 20 mg Route: IVP; Site: right antecubital; jl7 10:49 Follow up: Response: No adverse reaction jl7 10:31 Drug: TORadol - Ketorolac 15 mg Route: IVP; Site: right antecubital; jl7 10:49 Follow up: Response: No adverse reaction; Pain is decreased jl7 10:31 Drug: Benadryl 12.5 mg Route: IVP; Site: right antecubital; jl7 10:48 Follow up: Response: No adverse reaction jl7 12:30 Drug: Insulin Regular Human 10 units {Co-Signature: em (Reyes Vance RN).} Route: IVP; jl7 Site: right antecubital; 13:02 Follow up: Response: Blood sugar is lowered jl7 Intake: 10:49 IV: 1000ml; Total: 1000ml. jl7 Outcome: 12:59 Discharge ordered by . kdr 13:05 Discharged to home ambulatory, with family. jl7 13:05 Condition: stable 13:05 Discharge instructions given to patient, Instructed on discharge instructions, follow up and referral plans. medication usage, Demonstrated understanding of instructions, follow-up care, medications, Prescriptions given X 3. 13:06 Patient left the ED. jl7 Signatures: Dispatcher [employer] EDOK Mateo Odell MD MD kdr Sanford, Sapna ds1 Anushka Cheung RN RN hb Leal, Jahala, RN RN jl7 Donovan, Elida mt Reyes Vance RN em
[2020-07-15 13:34] VITALS: TEMP 97.2
[2020-07-15 13:37] VITALS: BP 125/71; O2SAT 96
== END 2020-07-15 13:06 | disposition home or self-care (01) ==
LOC: ER 08:58
DX: J18.9 Pneumonia, unspecified organism (principal); I10 Essential (primary) hypertension; Z88.1 Allergy status to other antibiotic agents; Z88.5 Allergy status to narcotic agent; Z88.6 Allergy status to analgesic agent; Z88.8 Allergy status to other drugs, medicaments and biological substances
CPT/HCPCS: 96361; 85025; 80048; 36415; 82947; 80076; 83690; 71045; 96375; 96374; 99284; J1200; J7030; J2405

== ENCOUNTER 2020-12-04 19:51 | Observation (INO) | payer OTHER ==
--- OUTSIDE RECORDS SUMMARY | 2020-12-04 19:54 | XMS REPORT | Continuity of Care Document ---
:1975 Author Organization [facility] t Address [address] [place] [address] Care Team Providers Name Role Phone Bryan Abernathy MD Attending Clinician Gomez HOLLINS, K.H. Attending Clinician Leobardo SALOMON Attending Clinician Problems This patient has no known problems. Allergies, Adverse Reactions, Alerts This patient has no known allergies or adverse reactions. Medications This patient has no known medications. Procedures This patient has no known procedures. Encounters Start End Encounter Admission Attending Care Care Encounter Source Date/Time Date/Time Type Type Clinicians Facility Department ID 2020-12-01 2020-12-01 Refill IVETT Abernathy [id number] 00:00:00 00:00:00 [facility] [id number] [place] [id number] Professio [phone] nal [address] 2020-11-28 2020-11-28 Telephone IVETT Abernathy [id number] 00:00:00 00:00:00 [facility] [id number] [place] [id number] Professio [phone] nal 0[address] 2020-11-24 2020-11-24 [facility] [id number] 00:00:00 00:00:00 Ricardo De León [id number] [place] [id number] Professio [phone] nal 059 Building 2020-11-20 2020-11-20 Office Leobardo [facility] [id number] 12:44:03 13:04:03 Visit Gracie De León [id number] [place] [id number] Professio [phone] [facility] 0[address] [facility] Results This patient has no known results.
[2020-12-04 20:28] LABS: Absolute Lymphocytes (CBC) 1.6 K/uL (0.7-4.9); MPV 9.9 fL (7.6-11.3); RBC Red Blood Cell Count 4.07 M/uL (3.86-4.86)
--- NOTE | 2020-12-04 20:29 | RAD REPORT ---
EXAM DESCRIPTION: CT - Ct Stroke Brain Wo Cont - 12/04/2020 8:14 pm CLINICAL HISTORY: Slurred speech COMPARISON: 2017 TECHNIQUE: Computed axial tomography of the head was obtained. All CT scans are performed using dose optimization technique as appropriate and may include automated exposure control or mA/KV adjustment according to patient size. FINDINGS: An intracranial bleed is not seen . The ventricles are normal in caliber. No extra-axial fluid collection is noted. Mild to moderate low-density within periventricular, deep and subcortical white matter likely ischemi c changes secondary to small vessel disease Fluid within the sinuses/ mastoids is not seen. IMPRESSION: No acute intracranial abnormality is seen. If patient's symptoms persist MRI of the bra in would be recommended. Young Page of the emergency room was notified at 6 8:23 p.m. on December 04, 2020,
[2020-12-04 20:40] LABS: Protime INR 0.93
[2020-12-04 20:59] LABS: BUN Blood Urea Nitrogen 11 mg/dL (7-18); Bicarbonate 29 mmol/L (21-32); Glucose Level 111 mg/dL (74-106); Magnesium 2.1 mg/dL (1.8-2.4); Potassium 3.9 mmol/L (3.5-5.1); Sodium Level 139 mmol/L (136-145); Troponin (Emerg Dept Use Only) < 0.02 ng/mL (0.0-0.045)
--- NOTE | 2020-12-04 21:06 | RAD REPORT ---
EXAM DESCRIPTION: [facility] Single View12/04/2020 8:46 pm CLINICAL HISTORY: Chest pain COMPARISON: June 2020 FINDINGS: Mild bilateral pulmonary opacities are suspected. Heart is probably borderline enlarged IMPRESSION: Mild bilateral pulmonary opacities may represent mild pulmonary edema or pneumonia
[2020-12-04] MEDS ORDERED: MORPHINE 4 MG/ML SYR ONE (22:39)
[2020-12-04] MEDS ORDERED: ONDANSETRON 4 MG/2 ML VIAL ONE (22:39)
--- NOTE | 2020-12-04 22:59 | ER ---
Nurse's Notes [facility] Name: Linda Rahman Age: 45 yrs Sex: Female : 1975 Arrival Date: 12/04/2020 Time: 19:57 Bed 6 Private MD: Diagnosis: Slurred speech;Facial weakness-left sided Presentation: 12/04 20:00 Chief complaint: Patient states: Slurring speech, drooping on L side of face. VAN ca1 negative. Coronavirus screen: Client denies travel out of the [place] in the last 14 days. At this time, the client does not indicate any symptoms associated with coronavirus-19. Ebola Screen: Patient negative for fever greater than or equal to 101.5 degrees Fahrenheit, and additional compatible Ebola Virus Disease symptoms Patient denies exposure to infectious person. Patient denies travel to an Ebola-affected area in the 21 days before illness onset. No symptoms or risks identified at this time. Risk Assessment: Do you want to hurt yourself or someone else? Patient reports no desire to harm self or others. Onset of symptoms was December 04, 2020 at 12:00. 20:00 Acuity: HOLLEY 2 ca1 20:00 Method Of Arrival: Wheelchair ca1 20:30 No acute neurological deficit is noted. Pre-hospital glucose is not applicable to this ea patient. Initial Sepsis Screen: Does the patient meet any 2 criteria? Yes Does the patient have a suspected source of infection? Yes:. Triage Assessment: 20:10 The onset of the patients symptoms was December 04, 2020 at 12:00. ca1 LAN SPECIALIST: 22:30 [facility] 01/2020 rr5 Stroke Activation: Symptom onset > 6 hours Physician: Stroke Attending; Name: ; Notified At: ; Arrived At: Physician: Chief Stroke Resident; Name: ; Notified At: ; Arrived At: Physician: Stroke Resident; Name: ; Notified At: ; Arrived At: Physician: ED Attending; Name: ; Notified At: ; Arrived At: Physician: ED Resident; Name: ; Notified At: ; Arrived At: Historical: - Allergies: 20:10 Amoxicillin; ca1 20:10 Benadryl; ca1 20:10 Benzonatate; ca1 20:10 Codeine; ca1 20:10 Demerol; ca1 20:10 Geodon; ca1 20:10 Ibuprofen; ca1 20:10 Lorazepam; ca1 20:10 Meclizine; ca1 20:10 Tessalon Perles; ca1 - PMHx: 20:10 High Cholesterol; Anemia; Hypertension; neuropathy; ca1 - Immunization history:: Flu vaccine is up to date. - Social history:: Smoking status: Patient denies any tobacco usage or history of. Screenin:17 Abuse screen: Denies threats or abuse. Nutritional screening: No deficits noted. ea Tuberculosis screening: No symptoms or risk factors identified. Fall Risk IV access (20 points). Assessment: 20:19 The patient has not been NPO before screening. The patient is alert, and able to follow ea commands. The patient exhibits slurred or garbled speech. The patient is not exhibiting difficulty speaking. The patient does not exhibit difficulty understanding words. The patient is able to swallow own secretions with no drooling or need for suction. Patient tolerated one teaspoon of water. No drooling, immediate coughing, gurgling, or clearing of the throat was noted. The patient tolerated 90mL of water. No drooling, immediate coughing, gurgling, or clearing of the throat was noted. The patient passed the bedside swallow screening. Oral medications may be given as ordered. Contact Physician for further diet orders. Provider notified of bedside swallow screening results: Paris Feldman MD. 20:19 General: Appears in no apparent distress. Behavior is calm, cooperative. Pain: Denies ea pain. Neuro: Level of Consciousness is awake, obeys commands, Oriented to person, place, situation. Cardiovascular: Patient's skin is warm and dry. Respiratory: Airway is patent Respiratory effort is even, unlabored, Respiratory pattern is regular, symmetrical. Derm: Skin is pink, warm \T\ dry. 20:29 VAN Scoring: Arm Drift: Patients demonstrates NO arm weakness. Patient is VAN Negative. ea 22:05 Reassessment: [id number] lizzie ( father). rr5 23:28 Reassessment: Patient appears in no apparent distress at this time. Patient is alert, rr5 oriented x 3, equal unlabored respirations, skin warm/dry/pink. for admission. 12/05 00:30 Reassessment: Patient and/or family updated on plan of care and expected duration. Pain em level reassessed. Patient is alert, oriented x 3, equal unlabored respirations, skin warm/dry/pink. 01:00 Reassessment: Patient and/or family updated on plan of care and expected duration. Pain em level reassessed. Patient is alert, oriented x 3, equal unlabored respirations, skin warm/dry/pink. Vital Signs: 12/04 20:28 BP 157 / 102; Pulse 103; Resp 11; Temp 98; Pulse Ox 98% ; ea 20:28 Weight 105.69 kg; rr5 21:46 BP 133 / 93; Pulse 102; Resp 16; Pulse Ox 100% on R/A; ea 22:30 BP 147 / 100; Pulse 103; Resp 19; Pulse Ox 99% 2 lpm ; rr5 23:26 BP 141 / 89; Pulse 105; Resp 16; Pulse Ox 98% on 2 lpm NC; rr5 Martinez Coma Score: 20:29 Eye Response: spontaneous(4). Verbal Response: oriented(5). Motor Response: obeys rr5 commands(6). Total: 15. NIH Stroke Scale Scores: 20:29 NIHSS Score: 3 ea 21:04 NIHSS Score: 4 ma2 ED Course: 19:57 Patient arrived in ED. am4 20:09 Triage completed. ca1 20:10 Arm band placed on right wrist. ca1 20:14 Paris Feldman MD is Attending Physician. ma2 20:15 Inserted saline lock: 20 gauge in right forearm, using aseptic technique. Blood rr5 collected. 20:17 Nina Castelan RN is Primary Nurse. ea 20:20 EKG done, by ED staff, reviewed by Paris Feldman MD. rr5 20:21 X-ray(s) taken. rr5 20:29 Patient has correct armband on for positive identification. Bed in low position. Call ea light in reach. Side rails up X2. 22:58 Nahun Dsouza is Hospitalizing Provider. ma2 23:28 COVID swab sent to lab. rr5 03 00:31 No provider procedures requiring assistance completed. Patient admitted, IV remains in ea place. 00:55 CT Head Angio In Process Unspecified. EDMS 00:55 CT Neck Angio In Process Unspecified. EDMS 11:59 Primary Nurse role handed off by Nina Castelan, ABDULLAHI eb Administered Medications: 12/04 22:35 Drug: morphine 4 mg Route: IVP; Site: left forearm; ea 23:29 Follow up: Response: No adverse reaction; RASS: Alert and Calm (0) rr5 22:36 Drug: Zofran (Ondansetron) 4 mg Route: IVP; Site: right forearm; ea 23:29 Follow up: Response: No adverse reaction rr5 23:12 Drug: Aspirin Chewable Tablet 324 mg Route: PO; rr5 03 02:40 Follow up: Response: No adverse reaction em Point of Care Testing: Blood Glucose: 12/04 20:33 Blood Glucose: 127 mg/dL; ea Ranges: Outcome: 22:58 Decision to Hospitalize by Provider. ma2 12/05 00:31 Instructed on the need for admit, Demonstrated understanding of instructions. ea 02:39 Admitted to ER [facility]. [facility] em 02:39 Condition: stable 16:50 Patient left the ED. NIH Stroke Scale - NIH Stroke Score Date: 12/04/2020 Time: 20:29 Total Score = 3 1a. Level of Consciousness (LOC) - 0(Alert) 1b. Level of Consciousness (LOC) (Year \T\ Age) - 0(Both) 1c. LOC Commands (Open \T\ Closes Eyes/Welder Machine Operator) - 0(Both) 2. Best Gaze (Lateral Gaze Paresis) - 0(Normal) 3. Visual Field Loss - 0(No visual loss) 4. Facial Palsy - 2(Partial paralysis) 5a. Left Arm: Motor (10-second hold) - 0(No drift) 5b. Right Arm: Motor (10-second hold) - 0(No drift) 6a. Left Leg: Motor (5-second hold - always test supine) - 0(No drift) 6b. Right Leg: Motor (5-second hold - always test supine) - 0(No drift) 7. Limb Ataxia (finger/nose \T\ heel/alfaro - test with eyes open) - 0(Absent) 8. Sensory Loss (pinprick arms/legs/face) - 0(Normal) 9. Best Language: Aphasia (description/naming/reading) - 0(No aphasia) 10. Dysarthria (speech clarity - read or repeat words) - 1(Mild to Moderate) 11. Extinction and Inattention (visual/tactile/auditory/spatial/personal) - 0(No abnormality) Initials: zohra NIH Stroke Scale - NIH Stroke Score Date: 12/04/2020 Time: 21:04 Total Score = 4 1a. Level of Consciousness (LOC) - 0(Alert) 1b. Level of Consciousness (LOC) (Year \T\ Age) - 0(Both) 1c. LOC Commands (Open \T\ Closes Eyes/Welder Machine Operator) - 0(Both) 2. Best Gaze (Lateral Gaze Paresis) - 0(Normal) 3. Visual Field Loss - 0(No visual loss) 4. Facial Palsy - 3(Complete paralysis) 5a. Left Arm: Motor (10-second hold) - 0(No drift) 5b. Right Arm: Motor (10-second hold) - 0(No drift) 6a. Left Leg: Motor (5-second hold - always test supine) - 0(No drift) 6b. Right Leg: Motor (5-second hold - always test supine) - 0(No drift) 7. Limb Ataxia (finger/nose \T\ heel/alfaro - test with eyes open) - 0(Absent) 8. Sensory Loss (pinprick arms/legs/face) - 0(Normal) 9. Best Language: Aphasia (description/naming/reading) - 0(No aphasia) 10. Dysarthria (speech clarity - read or repeat words) - 1(Mild to Moderate) 11. Extinction and Inattention (visual/tactile/auditory/spatial/personal) - 0(No abnormality) Initials: regine Signatures: Dispatcher [employer] EDReyes Gaines RN RN em Hall, Patricia, RN RN ph Antunez, Elena, RN RN ea Alzahri, Mohammad, MD MD ma2 Zoey Talavera Raymond RN RN rr5 Adrianne Green RN Flavia Izquierdo am Corrections: (The following items were deleted from the chart) 12/04 20:33 20:19 The patient has not been NPO before screening. The patient is alert, and ea able to follow commands. The patient does not exhibit slurred or garbled speech. The patient is not exhibiting difficulty speaking. The patient does not exhibit difficulty understanding words. The patient is able to swallow own secretions with no drooling or need for suction. Patient tolerated one teaspoon of water. No drooling, immediate coughing, gurgling, or clearing of the throat was noted. The patient tolerated 90mL of water. No drooling, immediate coughing, gurgling, or clearing of the throat was noted. The patient passed the bedside swallow screening. Oral medications may be given as ordered. Contact Physician for further diet orders. Provider notified of bedside swallow screening results: Paris Feldman MD, ea
--- NOTE | 2020-12-04 22:59 | EDPHYS ---
Physician Documentation [facility] Name: Linda Rahman Age: 45 yrs Sex: Female : 1975 Arrival Date: 12/04/2020 Time: 19:57 Bed 6 Private MD: ALEXA Physician Paris Feldman HPI: 12/04 21:04 This 45 yrs old Female presents to ER via Wheelchair with complaints of Facial ma2 Droop, Slurred Speech. 21:04 This 45 yrs old Female presents to ER via Wheelchair with complaints of Facial ma2 Droop, Slurred Speech. 21:04 The patient presents to the emergency department with a speech or higher order brain ma2 function problem, aphasia. Onset: The symptoms/episode began/occurred gradually, 10 hour(s) ago. Associated signs and symptoms: Pertinent negatives: chills, dizziness, nausea, neck stiffness, paresthesias, syncope, loss of vision, weakness. Severity of symptoms: At their worst the symptoms were moderate in the emergency department the symptoms are unchanged. Current symptoms: facial droop and slurred speech since 12 noon . The patient has not experienced similar symptoms in the past. 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 - Social history:: Smoking status: Patient denies any tobacco usage or history of. ROS: 21:04 Constitutional: Negative for fever, chills, and weight loss, Eyes: Negative for injury, ma2 pain, redness, and discharge, ENT: Negative for injury, pain, and discharge, Neck: Negative for injury, pain, and swelling, Cardiovascular: Negative for chest pain, palpitations, and edema, Respiratory: Negative for shortness of breath, cough, wheezing, and pleuritic chest pain, Abdomen/GI: Negative for abdominal pain, nausea, diarrhea, and constipation, Back: Negative for injury and pain, MS/Extremity: Negative for injury and deformity, Skin: Negative for injury, rash, and discoloration. 21:04 All other systems are negative. Exam: 21:04 Constitutional: This is a well developed, well nourished patient who is awake, alert, ma2 and in no acute distress. Head/Face: has left facila droop with weakness, see neuroexam below for more details, otherwise Normocephalic, atraumatic. Eyes: Pupils equal round and reactive to light, extra-ocular motions intact. Lids and lashes normal. Conjunctiva and sclera are non-icteric and not injected. Cornea within normal limits. Periorbital areas with no swelling, redness, or edema. ENT: Nares patent. No nasal discharge, no septal abnormalities noted. Tympanic membranes are normal and external auditory canals are clear. Oropharynx with no redness, swelling, or masses, exudates, or evidence of obstruction, uvula midline. Mucous membranes moist. Neck: Trachea midline, no thyromegaly or masses palpated, and no cervical lymphadenopathy. Supple, full range of motion without nuchal rigidity, or vertebral point tenderness. No Meningismus. Chest/axilla: Normal chest wall appearance and motion. Nontender with no deformity. No lesions are appreciated. Cardiovascular: Regular rate and rhythm with a normal S1 and S2. No gallops, murmurs, or rubs. Normal PMI, no JVD. No pulse deficits. Respiratory: Lungs have equal breath sounds bilaterally, clear to auscultation and percussion. No rales, rhonchi or wheezes noted. No increased work of breathing, no retractions or nasal flaring. Abdomen/GI: Soft, non-tender, with normal bowel sounds. No distension or tympany. No guarding or rebound. No evidence of tenderness throughout. Skin: Warm, dry with normal turgor. Normal color with no rashes, no lesions, and no evidence of cellulitis. MS/ Extremity: Pulses equal, no cyanosis. Neurovascular intact. Full, normal range of motion. Psych: Awake, alert, with orientation to person, place and time. Behavior, mood, and affect are within normal limits. 21:04 Neuro: Orientation: is normal, Mentation: is normal, Memory: is normal, Cranial nerves: normal except left facial droop, not clear if this is sparing the forehead, as patient is not cooperative with exam, extraocular movements are intact, facial droop noted on left, with forehead involved. Cerebellar function: is grossly normal, Motor: is normal, Sensation: is normal, Gait: unable to assess. Vital Signs: 20:28 BP 157 / 102; Pulse 103; Resp 11; Temp 98; Pulse Ox 98% ; ea 20:28 Weight 105.69 kg; rr5 21:46 BP 133 / 93; Pulse 102; Resp 16; Pulse Ox 100% on R/A; ea 22:30 BP 147 / 100; Pulse 103; Resp 19; Pulse Ox 99% 2 lpm ; rr5 23:26 BP 141 / 89; Pulse 105; Resp 16; Pulse Ox 98% on 2 lpm NC; rr5 NIH Stroke Scale Scores: 20:29 NIHSS Score: 3 ea 21:04 NIHSS Score: 4 ma2 Martinez Coma Score: 20:29 Eye Response: spontaneous(4). Verbal Response: oriented(5). Motor Response: obeys rr5 commands(6). Total: 15. MDM: 20:14 Patient medically screened. ma2 21:04 Data reviewed: vital signs, nurses notes, EMS record. Data interpreted: Cardiac ma2 monitor: Pulse oximetry:. Counseling: I had a detailed discussion with the patient and/or guardian regarding: the historical points, exam findings, and any diagnostic results supporting the discharge/admit diagnosis, the presence of at least one elevated blood pressure reading (>120/80) during this emergency department visit, the need for further work-up and treatment in the hospital. Response to treatment: the patient's symptoms have mildly improved after treatment. ED course: discussed with dr. velazquez he advised to do cth/neck angio and admit to hospitalist . 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 because this is not clear, discussed with dr. velazquez and he advised to admit to obs, give ASA and he will see her. . 12/04 20:16 Order name: Magnesium ma2 12/04 20:16 Order name: Troponin (emerg Dept Use Only) ma2 12/04 20:16 Order name: Basic Metabolic Panel ar2 12/04 20:16 Order name: CBC with Diff ar2 12/04 20:16 Order name: Protime (+inr) ar2 12/04 20:16 Order name: Ptt, Activated ar2 12/04 20:30 Order name: Glucose, Ancillary Testing; Complete Time: 20:43 EDMS 12/04 20:31 Order name: CBC with Automated Diff; Complete Time: 20:43 EDMS 12/04 20:43 Order name: Protime (+INR); Complete Time: 22:04 EDMS 12/04 20:43 Order name: PTT, Activated Partial Thromb; Complete Time: 22:04 EDMS 12/04 21:00 Order name: Basic Metabolic Panel; Complete Time: 22:04 EDMS 12/04 21:00 Order name: Troponin (Emerg Dept Use Only); Complete Time: 22:04 EDMS 12/04 21:00 Order name: Magnesium; Complete Time: 22:04 EDMS 12/04 23:18 Order name: COVID-19 : Document "Date of Symptom Onset" if Symptomatic. rr5 12/04 20:08 Order name: CT Stroke Brain w/o Contrast ca1 12/04 20:16 Order name: Stroke CXR 1 View [facility] 12/04 20:16 Order name: EKG; Complete Time: 20:17 ar2 12/04 20:29 Order name: CT [facility] 12/04 20:46 Order name: CT Head Angio ar2 12/04 20:46 Order name: CT Neck Angio [facility] 12/04 21:06 Order name: RAD; Complete Time: 22:04 [facility] 12/04 23:31 Order name: CORONAVIRUS [facility] 12/05 00:14 Order name: SARS-COV-2 RT PCR [facility] 12/05 01:09 Order name: CONS Physician Consult [facility] 12/05 08:25 Order name: Glucose, Ancillary Testing [facility] 12/05 08:46 Order name: RAD [facility] 12/05 13:17 Order name: NT PRO-BNP [facility] 12/04 20:16 Order name: Accucheck; Complete Time: 20:29 ar2 12/04 20:16 Order name: Cardiac monitoring; Complete Time: 20:29 ar2 12/04 20:16 Order name: EKG - Nurse/Tech; Complete Time: 20:29 [facility] 12/04 20:16 Order name: IV Saline Lock; Complete Time: [facility] 12/04 20:16 Order name: Labs collected and sent; Complete Time: [facility] 12/04 20:16 Order name: NPO; Complete Time: [facility] 12/04 20:16 Order name: O2 Per Protocol; Complete Time: [facility] 12/04 20:16 Order name: O2 Sat Monitoring; Complete Time: [facility] 12/04 20:16 Order name: Stroke Swallow Screen; Complete Time: 20:36 ma2 Administered Medications: 22:35 Drug: morphine 4 mg Route: IVP; Site: left forearm; ea 23:29 Follow up: Response: No adverse reaction; RASS: Alert and Calm (0) rr5 22:36 Drug: Zofran (Ondansetron) 4 mg Route: IVP; Site: right forearm; ea 23:29 Follow up: Response: No adverse reaction rr5 23:12 Drug: Aspirin Chewable Tablet 324 mg Route: PO; rr5 12/05 02:40 Follow up: Response: No adverse reaction em Point of Care Testing: Blood Glucose: 12/04 20:33 Blood Glucose: 127 mg/dL; ea Ranges: Critical Glucose Levels:Adult <50 mg/dl or >400 mg/dl <40 mg/dl or >180 mg/dl Disposition: 12/04/20 22:58 Hospitalization ordered by Nahun Dsouza for Observation. Preliminary diagnosis are Slurred speech, Facial weakness - left sided . - Bed requested for Telemetry/MedSurg (observation). - Status is Observation. ph - Condition is Stable. - Problem is new. - Symptoms are unchanged. NIH Stroke Scale - NIH Stroke Score Date: 12/04/2020 Time: : Total Score = 3 1a. Level of Consciousness (LOC) - 0(Alert) 1b. Level of Consciousness (LOC) (Year \\T\\ Age) - 0(Both) 1c. LOC Commands (Open \\T\\ Closes Eyes/Plycor Operator) - 0(Both) 2. Best Gaze (Lateral Gaze Paresis) - 0(Normal) 3. Visual Field Loss - 0(No visual loss) 4. Facial Palsy - 2(Partial paralysis) 5a. Left Arm: Motor (10-second hold) - 0(No drift) 5b. Right Arm: Motor (10-second hold) - 0(No drift) 6a. Left Leg: Motor (5-second hold - always test supine) - 0(No drift) 6b. Right Leg: Motor (5-second hold - always test supine) - 0(No drift) 7. Limb Ataxia (finger/nose \\T\\ heel/alfaro - test with eyes open) - 0(Absent) 8. Sensory Loss (pinprick arms/legs/face) - 0(Normal) 9. Best Language: Aphasia (description/naming/reading) - 0(No aphasia) 10. Dysarthria (speech clarity - read or repeat words) - 1(Mild to Moderate) 11. Extinction and Inattention (visual/tactile/auditory/spatial/personal) - 0(No abnormality) Initials: NIH Stroke Scale - NIH Stroke Score Date: 12/04/2020 Time: 21:04 Total Score = 4 1a. Level of Consciousness (LOC) - 0(Alert) 1b. Level of Consciousness (LOC) (Year \\T\\ Age) - 0(Both) 1c. LOC Commands (Open \\T\\ Closes Eyes/Plycor Operator) - 0(Both) 2. Best Gaze (Lateral Gaze Paresis) - 0(Normal) 3. Visual Field Loss - 0(No visual loss) 4. Facial Palsy - 3(Complete paralysis) 5a. Left Arm: Motor (10-second hold) - 0(No drift) 5b. Right Arm: Motor (10-second hold) - 0(No drift) 6a. Left Leg: Motor (5-second hold - always test supine) - 0(No drift) 6b. Right Leg: Motor (5-second hold - always test supine) - 0(No drift) 7. Limb Ataxia (finger/nose \\T\\ heel/alfaro - test with eyes open) - 0(Absent) 8. Sensory Loss (pinprick arms/legs/face) - 0(Normal) 9. Best Language: Aphasia (description/naming/reading) - 0(No aphasia) 10. Dysarthria (speech clarity - read or repeat words) - 1(Mild to Moderate) 11. Extinction and Inattention (visual/tactile/auditory/spatial/personal) - 0(No abnormality) Initials: ma2 Signatures: Dispatcher [employer] Екатерина Lloyd RN RN dw Lasagna, Tonya, RN RN tl1 Keyonna Estrella, RN RN Nina Castelan, RN Paris Bran ea, MD MD [facility] Bertrand Salas, RN RN rr5 Adrianne Green RN RN ca1 Reyes Vance RN em Corrections: (The following items were deleted from the chart) 12/05 01:23 12/04 22:58 Hospitalization Ordered by Nahun Dsouza for Observation. tl1 Preliminary diagnosis is Slurred speech; Facial weakness - left sided . Bed requested for Telemetry/MedSurg (observation). Status is Observation. Condition is Stable. Problem is new. Symptoms are unchanged. [facility] 12/05 15:59 01:23 12/04/2020 22:58 Hospitalization Ordered by Nahun Dsouza for Observation. Preliminary diagnosis is Slurred speech; Facial weakness - left sided . Bed requested for [facility] ER HOLD. Status is Observation. Condition is Stable. Problem is new. Symptoms are unchanged. tl1 16:50 15:59 12/04/2020 22:58 Hospitalization Ordered by Nahun Dsouza for Observation. Preliminary diagnosis is Slurred speech; Facial weakness - left sided . Bed requested for Telemetry/MedSurg (observation). Status is Observation. Condition is Stable. Problem is new. Symptoms are unchanged.
[2020-12-04] MEDS ORDERED: ASPIRIN 81 MG CHEWABLE TABLET ONE (23:22)
[2020-12-05] MEDS ORDERED: ACETAMINOPHEN 500 MG TAB PO PRN (02:25)
[2020-12-05] MEDS ORDERED: ONDANSETRON 4 MG/2 ML VIAL IV PRN (02:25)
[2020-12-05] MEDS ORDERED: ACETAMINOPHEN 500 MG TAB ONE (03:22)
[2020-12-05 04:55] VITALS: BMI 46.3
--- NOTE | 2020-12-05 05:08 | P.HP ---
Certification for Inpatient Patient admitted to: Observation With expected LOS: <2 Midnights Patient will require the following post-hospital care: None Practitioner: I am a practitioner with admitting privileges, knowledge of patient current condition, hospital course, and medical plan of care. Services: Services provided to patient in accordance with Admission requirements found in Title 42 Section 412.3 of the Code of Federal Regulations <Yobani Andujar - Last Filed: 12/05/20 05:20> Patient History Date of Service: 12/04/20 Reason for admission: stroke rule out History of Present Illness: Ms. 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 She reports facial droop, slurred speach, weakness, and blurry vision. She says she feels pain on the right side of her body. She denies headache, dizziness, nausea, vomiting, ataxia. She reports she has had numbness on the right side of her face since she was a baby, but the feeling she has now is new. GFR of 68. CXR showed mild bilateral pulmonary opacities, pulmonary edema vs pneumonia. CT was negative. CTA was negative. - Past Medical/Surgical History Diabetic: No -: CHF -: pernicious anemia -: asthma -: major depression -: hypothyroidism -: anxiety -: neuropathy -: hypertension -: high cholesterol -: learning disability -: tachycardia -: sleep apnea -: cholecystecomy -: tubal ligation - Family History Mother -: Hypertension, Kidney disease Notes: celiac, oa, Father -: Hypertension, Diabetes, Other (see notes) Notes: high cholesterol - Social History Smoking Status: Never smoker Alcohol use: No CD- Drugs: No Caffeine use: Yes <Yobani Andujar - Last Filed: 12/05/20 05:20> Date of Service: 12/05/20 <joni kay - Last Filed: 12/05/20 18:01> Allergies amoxicillin [Amoxicillin] Allergy (Mild, Verified 08/14/17 10:28) Hives meperidine HCl [From Demerol] Allergy (Verified 08/14/17 10:28) Anaphylaxis ziprasidone HCl [From Geodon] Allergy (Verified 08/14/17 10:28) Anaphylaxis meclizine Adverse Reaction (Intermediate, Verified 08/14/17 10:28) Anaphylaxis diphenhydramine [From Benadryl] Adverse Reaction (Verified 08/14/17 10:28) Anaphylaxis lorazepam Adverse Reaction (Verified 08/14/17 10:28) Anaphylaxis ziprasidone mesylate [From Geodon] Adverse Reaction (Verified 08/14/17 10:28) Anaphylaxis Amoxicillin Allergy (Uncoded 08/14/17 10:28) Anaphylaxis Tessalon Allergy (Uncoded 08/14/17 10:28) Anaphylaxis Tessalon Adilene Adverse Reaction (Uncoded 08/14/17 10:28) Anaphylaxis Home Medications: Amitriptyline [Elavil*] 50 mg PO BEDTIME 08/14/17 Ascorbic Acid [Vitamin C with Yaima Hips] 1,000 mg PO DAILY 08/14/17 Cholecalciferol (Vitamin D3) [Vitamin D3] 1,000 unit PO DAILY 08/14/17 Citalopram Hydrobromide [Citalopram HBr] 40 mg PO DAILY 08/14/17 Cyanocobalamin (Vitamin B-12) [Cyanocobalamin Injection] 1 ml IM DIRECTED 08/14/17 Docusate Sodium [Stool Softener] 50 mg PO DAILY 08/14/17 Ferrous Sulfate [Ferrous Sulfate*] 1 tab PO TID 08/14/17 Fluticasone Propionate [Flonase Allergy Relief] 9.9 ml NS DAILY 08/14/17 Folic Acid 0.4 mg PO DAILY 08/14/17 Levothyroxine [Synthroid*] 50 mcg PO [id number] 08/14/17 Loratadine [Claritin*] 10 mg PO DAILY 08/14/17 Multivitamin with Minerals [Multivitamins with Minerals] 1 each PO DAILY 08/14/17 Cyclobenzaprine HCl [Flexeril] 5 mg PO Q8HR PRN 12/05/20 Diltiazem HCl [Cartia Xt] 120 mg PO BID 12/05/20 Losartan Potassium 50 mg PO BID 12/05/20 Omeprazole 20 mg PO 12/05/20 Pregabalin [Lyrica] 150 mg PO TID 12/05/20 Rosuvastatin [Crestor] 10 mg PO BEDTIME 12/05/20 Review of Systems General: Weakness, As per HPI Eyes: Vision Change, As per HPI ENT: Unremarkable Respiratory: Shortness of Breath Cardiovascular: Unremarkable Gastrointestinal: Unremarkable Genitourinary: Unremarkable Musculoskeletal: Unremarkable Integumentary: Unremarkable Neurological: Weakness, Numbness, Change in Speech, As per HPI Lymphatics: Unremarkable <Yobani Andujar - Last Filed: 12/05/20 05:20> Physical Examination - Vital Signs Temperature: 97.6 F Blood Pressure: 114/84 Pulse: 92 Respirations: 20 Pulse Ox (%): 95 - Physical Exam General: Alert, In no apparent distress, Oriented x3, Cooperative, Other (mild learning disability) HEENT: Atraumatic, Normocephalic, PERRLA, Mucous membr. moist/pink, EOMI, Sclerae nonicteric Neck: Supple, 2+ carotid pulse no bruit, JVD not distended, No Thyromegaly, No LAD Respiratory: Clear to auscultation bilaterally, Normal air movement Cardiovascular: No edema, Normal pulses, Regular rate/rhythm, Normal S1 S2, No gallops, No rubs, No murmurs Capillary refill: <2 Seconds Gastrointestinal: Normal bowel sounds, Hypoactive, Soft and benign, Non- distended, No ascites, No tenderness, No masses, No rebound, No guarding Musculoskeletal: No clubbing, No swelling, No contractures, No erythema, No tenderness, No warmth Integumentary: No rashes, No breakdown, No significant lesion, No tenderness/swelling, No erythema, No warmth, No cyanosis Neurological: Normal strength at 5/5 x4 extr, Normal tone, Normal affect, Other (unable to appreciate if facial droop spares forehead. patient has numbness on right side of face at baseline.), Abnormal speech, Abnormal sensation - Studies Laboratory Data (last 24 hrs) 12/04/20 20:15: PT 10.7, INR 0.93, APTT 30.2 12/04/20 20:15: WBC 7.10, Hgb 13.0, Hct 38.0, Plt Count 199 12/04/20 20:15: Sodium 139, Potassium 3.9, BUN 11, Creatinine 0.89, Glucose 111 H, Magnesium 2.1 <Yobani Andujar - Last Filed: 12/05/20 05:20> - Studies Laboratory Data (last 24 hrs) 12/04/20 20:15: PT 10.7, INR 0.93, APTT 30.2 12/04/20 20:15: WBC 7.10, Hgb 13.0, Hct 38.0, Plt Count 199 12/04/20 20:15: Sodium 139, Potassium 3.9, BUN 11, Creatinine 0.89, Glucose 111 H, Magnesium 2.1 <joni kay - Last Filed: 12/05/20 18:01> Assessment and Plan - Plan Assessment #stroke r/o vs Andrews palsy #DM #HTN #HLD Plan #stroke r/o vs Andrews palsy -neurology consult placed -CT head and CTA negative -lipid panel pending -daily ASA, statin, folic acid -speech consult placed, NPO for now #DM -mild sliding scale and ACHS for when diet is advanced #HTN -stable. reconcile home medications -BNP pending. CXR with mild bilateral pulmonary opacities, pulmonary edema vs PNA #HLD -stable. reconcile home medications - Advance Directives Does patient have a Living Will: No Does patient have a Durable POA for Healthcare: No <Yobani Andujar - Last Filed: 12/05/20 05:20> Physician Review: Patient Assessed, Agree with Above Assessment and Plan Physician Review Additional Text: Left facial droop. Bipolar disorder Plan: CVA versus Andrews's palsy. Obtain MRI. Neurology consult Echocardiogram. Aspirin and statins. <joni kay - Last Filed: 12/05/20 18:01>
[2020-12-05] MEDS: INSULIN -REGULAR HUMAN 50 UNIT/0.5 ML ML SQ SCH ×3 (06:00→18:00)
--- NOTE | 2020-12-05 06:50 | EKG ---
Test Date: 2020-12-04 Test Time: 20:17:33 Gaming Department Head: POLO MEASUREMENT RESULTS: Intervals: Rate: 104 IL: 160 QRSD: 110 QT: 378 QTc: 497 [place]: P: 24 IL: 160 QRS: -51 T: 56 INTERPRETIVE STATEMENTS: Sinus tachycardia Pulmonary disease pattern Incomplete right bundle branch block Left anterior fascicular block Septal infarct, age undetermined Abnormal ECG Compared to ECG 05/24/2019 13:36:12 Incomplete right bundle-branch block now present Left anterior fascicular block now present Sinus rhythm no longer present Left-axis deviation no longer present Myocardial infarct finding still present Electronically Signed On 12-05-20 06:49:05 BENEFITS CONSULTANT by Elijah Lock
--- NOTE | 2020-12-05 08:46 | RAD REPORT ---
EXAM DESCRIPTION: RAD - Chest Pa And Lat (2 Views) - 12/05/2020 4:31 am CLINICAL HISTORY: Stroke Chest pain. COMPARISON: Chest Single View dated 12/04/2020; Chest Single View dated 07/15/2020; Chest Pa And Lat (2 Views) dated 11/03/2019; Chest Single View dated 05/24/2019 FINDINGS: Mild interstitial pulmonary edema seen. The heart is upper limit normal in size. No displa eleazar fractures.
[2020-12-05] MEDS: FOLIC ACID 1 MG TABLET PO SCH (09:00)
[2020-12-05] MEDS: ENOXAPARIN 40 MG/0.4 ML SQ SCH (09:00)
[2020-12-05] MEDS: ASPIRIN EC 81 MG TAB PO SCH (09:00)
[2020-12-05] MEDS ORDERED: ENOXAPARIN 40 MG/0.4 ML SQ ONE (10:12)
--- NOTE | 2020-12-05 11:48 | ECHO ---
HEIGHT: 5 ft 2 in WEIGHT: 253 lb 0 oz DATE OF STUDY: 12/05/[address]: Yobani Andujar 2-DIMENSIONAL: YES M.MODE: YES DOPPLER: YES COLOR FLOW: YES TDS: NO PORTABLE: NO DEFINITY: NO BUBBLE STUDY: NO DIAGNOSIS: STROKE CARDIAC HISTORY: CATHERIZATION: NO SURGERY: NO PROSTHETIC VALVE: NO PACEMAKER: NO MEASUREMENTS (cm) DIASTOLIC (NORMALS) SYSTOLIC (NORMALS) IVSd 1.2 (0.6-1.2) LA Diam 3.0 (1.9-4.0) LVEF 55-60% LVIDd 4.0 (3.5-5.7) LVIDs 3.1 (2.0-3.5) %FS % LVPWd 1.2 (0.6-1.2) Ao Diam 2.4 (2.0-3.7) 2 DIMENSIONAL ASSESSMENT: RIGHT ATRIUM: NORMAL LEFT ATRIUM: NORMAL RIGHT VENTRICLE: NORMAL LEFT VENTRICLE: NORMAL TRICUSPID VALVE: NORMAL MITRAL VALVE: NORMAL PULMONIC VALVE: NORMAL AORTIC VALVE: NORMAL PERICARDIAL EFFUSION: NONE AORTIC ROOT: NORMAL LEFT VENTRICULAR WALL MOTION: NORMAL DOPPLER/COLOR FLOW: NORMAL COMMENTS: NORMAL 2D ECHOCARDIOGRAM WITH DOPPLER. NO WALL MOTION ABNORMALITY. NO EFFUSION. TECHNOLOGIST: Ivana KRUEGER
[2020-12-05] MEDS ORDERED: HYDROCODONE/APAP 5/325 MG TAB ONE (14:12)
[2020-12-05] MEDS ORDERED: HYDROCODONE/APAP 5/325 MG TAB PO ONE (15:00)
[2020-12-05 16:58] VITALS: O2SAT 98
--- NOTE | 2020-12-05 17:03 | RAD REPORT ---
EXAM DESCRIPTION: MRI - Brain W/Wo Cont - 12/05/2020 4:50 pm CLINICAL HISTORY: Slurred speech COMPARISON: December 04, [address] TECHNIQUE: Axial, sagittal, and coronal magnetic images of the brain were obtained. 18 cc MultiHance administered intravenously FINDINGS: No significant abnormal signal within the brain noted. The ventricles are normal in caliber. Diffusion-weighted/ ADC mapping sequences do not demonstrate evidence of an acute infarction. No abnormal enhancement within the brain is seen. An extra-axial fluid collection is not noted. Fluid within the sinuses/mastoids is not seen IMPRESSION: No acute abnormality displayed
--- NOTE | 2020-12-05 17:54 | RAD REPORT ---
EXAM DESCRIPTION: Head angio (accession [id number]), Neck Angio (accession [id number]) RadLex: CT HEAD ANGIOGRAPHY WITH IV CONTRAST, CT NECK ANGIOGRAPHY WITH IV CONTRAST CLINICAL HISTORY: Facial droop, slurred speech. COMPARISON: CT head report from the same date. TECHNIQUE: CTA of the head and neck was performed following intravenous administration of iodinated contrast. Axial soft tissue and bone window, and coronal and sagittal soft tissue window reconstructi ons were created and sent to PACS. 3D postprocessing was performed on an independent workstation, with images sent to PACS for subsequen t review. This exam was performed according to our departmental dose-optimization program, which includes autom ated exposure control, adjustment of the mA and/or kV according to patient size and/or use of iterati ve reconstruction technique. FINDINGS: Mild motion degradation in the neck. Vascular: Three vessel aortic arch. No evidence of occlusions or hemodynamically significant stenosis in the head and neck. Medial deviation of the internal carotid arteries. The MCAs and ACAs are paten t. Anterior communicating artery identified. A small posterior communicating artery is identified on the left. Codominant vertebral arteries. Bilateral PICAs and AICAs are visualized. Patent basilar art kym. Patent superior cerebellar arteries and posterior cerebral arteries. No intracranial aneurysm id entified. The opacified major dural venous sinuses are unremarkable. Other: Grossly unremarkable appearance of the brain parenchyma. IMPRESSION: No evidence of occlusions or hemodynamically significant stenosis in the head and neck. Electronically signed by: Christi Christian MD 12/04/2020 10:42 PM [employer] Due to temporary technical issues with the PACS/Fluency reporting system, reports are being signed by the in house radiologists without review as a courtesy to insure prompt reporting. The interpreting radiologist is fully responsible for the content of the report.
--- NOTE | 2020-12-05 17:57 | RAD REPORT ---
EXAM DESCRIPTION: Head angio (accession [id number]), Neck Angio (accession [id number]) RadLex: CT HEAD ANGIOGRAPHY WITH IV CONTRAST, CT NECK ANGIOGRAPHY WITH IV CONTRAST CLINICAL HISTORY: Facial droop, slurred speech. COMPARISON: CT head report from the same date. TECHNIQUE: CTA of the head and neck was performed following intravenous administration of iodinated contrast. Axial soft tissue and bone window, and coronal and sagittal soft tissue window reconstructi ons were created and sent to PACS. 3D postprocessing was performed on an independent workstation, with images sent to PACS for subsequen t review. This exam was performed according to our departmental dose-optimization program, which includes autom ated exposure control, adjustment of the mA and/or kV according to patient size and/or use of iterati ve reconstruction technique. FINDINGS: Mild motion degradation in the neck. Vascular: Three vessel aortic arch. No evidence of occlusions or hemodynamically significant stenosis in the head and neck. Medial deviation of the internal carotid arteries. The MCAs and ACAs are paten t. Anterior communicating artery identified. A small posterior communicating artery is identified on the left. Codominant vertebral arteries. Bilateral PICAs and AICAs are visualized. Patent basilar art kym. Patent superior cerebellar arteries and posterior cerebral arteries. No intracranial aneurysm id entified. The opacified major dural venous sinuses are unremarkable. Other: Grossly unremarkable appearance of the brain parenchyma. IMPRESSION No evidence of occlusions or hemodynamically significant stenosis in the head and neck. Electronically signed by: Christi Christian MD 12/04/2020 10:42 PM ON CALL Due to temporary technical issues with the PACS/Fluency reporting system, reports are being signed by the in house radiologists without review as a courtesy to insure prompt reporting. The interpreting radiologist is fully responsible for the content of the report.
--- NOTE | 2020-12-05 18:05 | P.PN ---
Subjective Date of Service: 12/05/20 Chief Complaint: stroke rule out Patient complaining of back pain and shoulder pain. She reports no change in facial weakness or slurred speech. Physical Examination - Vital Signs Temperature: 97.6 F Blood Pressure: 147/98 Pulse: 104 Respirations: 20 Pulse Ox (%): 98 - Physical Exam General: In no apparent distress, Oriented x3 HEENT: PERRLA, Mucous membr. moist/pink, EOMI, Sclerae nonicteric Neck: Supple, JVD not distended Respiratory: Clear to auscultation bilaterally, Normal air movement Cardiovascular: No edema, Regular rate/rhythm, Normal S1 S2 Gastrointestinal: Normal bowel sounds, Soft and benign, Non-distended, No tenderness Musculoskeletal: No swelling, No tenderness Integumentary: No rashes, No erythema Neurological: Other (Left facial weakness.), Abnormal speech (Slurred) - Studies Laboratory Data (last 24 hrs) 12/04/20 20:15: PT 10.7, INR 0.93, APTT 30.2 12/04/20 20:15: WBC 7.10, Hgb 13.0, Hct 38.0, Plt Count 199 12/04/20 20:15: Sodium 139, Potassium 3.9, BUN 11, Creatinine 0.89, Glucose 111 H, Magnesium 2.1 Assessment And Plan - Current Problems (Diagnosis) (1) Facial paralysis on left side Current Visit: Yes Status: Acute (2) Back pain Current Visit: Yes Status: Acute (3) Bipolar disorder Onset Date: 08/15/17 Current Visit: No Status: Acute Qualifiers: Active/Remission status: currently active Current bipolar episode type: mixed Current episode severity: moderate Qualified Code(s): F31.62 - Bipolar disorder, current episode mixed, moderate (4) Hypothyroidism Onset Date: 08/15/17 Current Visit: No Status: Chronic Qualifiers: Hypothyroidism type: acquired Qualified Code(s): E03.9 - Hypothyroidism, unspecified (5) Obesity Onset Date: 08/15/17 Current Visit: No Status: Chronic Qualifiers: Obesity type: due to excess calories Obesity classification: unspecified obesity classification Serious obesity comorbidity presence: without serious comorbidity Qualified Code(s): E66.09 - Other obesity due to excess calories - Plan Continue aspirin and Lipitor. MRI of the brain: Negative for acute CVA. Dr. Longo to evaluate. Echocardiogram: Unremarkable. Speech therapy: Recommend mechanical soft diet. Pain management as needed. Obtain x-ray of the lumbar vertebra per family request. Monitor and optimize blood pressure. Hold psychotropic medications.
--- NOTE | 2020-12-05 18:10 | RAD REPORT ---
EXAM DESCRIPTION: RAD - Lumbar Spine 3 Views - 12/05/2020 5:57 pm CLINICAL HISTORY: Back pain FINDINGS: The alignment of the lumbar spine is satisfactory. No fracture or dislocation is seen. Mild spondylosis involves the lumbar spine. The bones are osteoporotic. The bladder is distended contrast
--- NOTE | 2020-12-05 20:20 | CON ---
Reason For Consultation: Consultation called by Dr. Dsouza because of possible stroke. History Of Present Illness: Ms. Rahman is a 45-year-old right-handed patient with multipl e medical problems including diabetes mellitus, hypertension, dyslipidemia, warm hemolytic anemia, as thma, and peripheral neuropathy, who developed left facial weakness, slurred speech around 3 p.m. tod ay it was noted and became somewhat worse. She reports a long history of difficulty with vision and wears bifocals, and may have blurred vision, but she potentially is independent. She really denies a ny weakness in the left hand or left body. She has no nausea or vomiting, and no significant difficu lty with her gait. At [facility], she was evaluated for stroke and was actually ruled out f or stroke. Negative head CT scan and negative brain MRI for stroke. Magnetic resonance angiogram di d not show any significant abnormalities. It should be noted that the brain CT and MRI were remarkab le for mild to moderate small-vessel ischemic disease, which is not common in someone with multiple s troke risk factors as indicated. Her echocardiogram showed an ejection fraction of 55% to 60% and wa s a normal study. Her electrocardiogram showed sinus tachycardia with pulmonary disease pattern, inc omplete right bundle branch block, left anterior fascicular block, septal infarct, age undetermined. Past Medical History: As indicated including CHF, pernicious anemia, asthma, major depression, hypot hyroidism, anxiety, neuropathy, hypertension, dyslipidemia, longstanding learning disability, tachyca rdia, sleep apnea. Past Surgical History: Cholecystectomy, tubal ligation. Family History: Positive for kidney disease and hypertension in mother. Father has hypertension, di abetes, and dyslipidemia. Social History: No alcohol, tobacco, or IV drug use. Allergies: AMOXICILLIN, DEMEROL, GEODON, MECLIZINE, BENADRYL, LORAZEPAM, AMOXICILLIN, TESSALON PERLE S. Home Medications: Amitriptyline 50 mg at bedtime, vitamin C 1000 mg daily, vitamin D 1000 mg daily, citalopram 40 mg daily, vitamin B12 injections as directed monthly, ferrous sulfate daily, Flonase, f olic acid 0.4 mg daily, Synthroid 50 mcg daily, Claritin 10 mg daily, multivitamin daily, Flexeril 5 mg daily, diltiazem 120 mg twice daily, losartan 50 mg daily, omeprazole 20 mg daily, Lyrica 150 mg 3 times a day, Crestor 10 mg at bedtime. Review of Systems: She does have some difficulty with weakness in the face, difficulty with slurred speech and intermitt ent blurred vision, shortness of breath. Otherwise, no chest pain, abdominal pain, and no deficits t hat are focal in the extremities, but again numbness with some neuropathy symptoms of tingling feelin g in the feet. Physical Examination: Vital Signs: Blood pressure 147/98, pulse range up to from 92-105, temperature 98, respiratory rate from 12-20. General: Ms. Rahman is sitting in bed. She does appear somewhat disheveled. HEENT: Otherwise, normocephalic and atraumatic. Sclerae anicteric. Oropharynx is moist. Neck: Supple. Chest: Clear. Heart: Regular. Extremities: No significant edema, cyanosis, or clubbing. Neurological: She is alert and oriented. She follows commands appropriately. She does have a decre ase of the left nasolabial fold, decreased strength of eye closure, and decrease in the wrinkling of the left forehead. The left corner of the mouth is also drooping and she does not report asymmetry o f sensation to the upper forehead, but does say it feels different on the left than the right lower f magnolia. Her tongue and palate are midline. Pupils are round, reactive to light. In terms of motor exa mination in the upper and lower extremities, she is fully strong proximally and distally. Sensory ex am is stocking-glove loss to light touch and temperature. Reflexes depressed in the upper and lower extremities. Coordination intact, but slow in upper and lower extremities. Laboratory Studies: Complete blood count with differential is completely normal. Coagulation panel is normal. Chemistries normal. She does have glucose ranging from 111 to 137, calcium 9.1, magnesiu m 2.1. COVID-19 is negative. Assessment: Ms. Rahman is a 45-year-old patient with left Andrews's palsy, diabetes mellitus, and mul tiple medical problems as indicated including dyslipidemia, hypertension, hypothyroidism, chronic ane gallito, peripheral neuropathy, and a learning disability. Plan: Start acyclovir per protocol for left Andrews's palsy. Consider a course of steroids for 7 days. The patient may be discharged home in the morning. Follow up with Dr. Longo in 1 month. Treatm ent for the Andrews's palsy may last 7 days as appropriate. LUKAS Voice ID: [id number] Report ID: [id number]
[2020-12-05] MEDS: ACYCLOVIR 400 MG TABLET PO SCH (20:43)
[2020-12-05] MEDS: PREGABALIN 150 MG CAP PO SCH (20:43)
[2020-12-05] MEDS: predniSONE 20 MG TAB PO SCH (20:44)
[2020-12-05] MEDS: DILTIAZEM HCL 120 MG SR CAP PO SCH (20:44)
[2020-12-05] MEDS ORDERED: ATORVASTATIN 40 MG TAB PO SCH (21:00)
[2020-12-06] MEDS ORDERED: LEVOTHYROXINE SOD 0.05 MG TABLET PO SCH (06:00)
[2020-12-06 06:18] LABS: Absolute Lymphocytes (CBC) 0.8 K/uL (0.7-4.9); Basophils % 0.7 % (0-1.3); Hematocrit 37.6 % (36.0-45.0); Lymphocytes % 11.1 % (15.3-44.8); MPV 9.5 fL (7.6-11.3); RBC Red Blood Cell Count 4.09 M/uL (3.86-4.86)
[2020-12-06 06:54] LABS: Albumin 4.1 g/dL (3.4-5.0); Bilirubin Direct 0.5 mg/dL (0-0.2); Bilirubin Total 1.6 mg/dL (0.2-1.0); Potassium 4.4 mmol/L (3.5-5.1); Protein, Total 7.5 g/dL (6.4-8.2); T4,Total 8.7 ug/dL (4.8-13.9); Thyroid Stimulating Hormone 1.36 uIU/mL (0.360-3.740)
[2020-12-06] MEDS: INSULIN -REGULAR HUMAN 50 UNIT/0.5 ML ML SQ SCH ×2 (07:30→11:30)
[2020-12-06] MEDS ORDERED: ASCORBIC ACID 500 MG TABLET PO SCH (09:00)
[2020-12-06] MEDS ORDERED: ASCORBIC ACID 1000 MG PO SCH (09:00)
[2020-12-06] MEDS: ASPIRIN EC 81 MG TAB PO SCH (09:41)
[2020-12-06] MEDS: PREGABALIN 150 MG CAP PO SCH (09:41)
[2020-12-06] MEDS: FOLIC ACID 1 MG TABLET PO SCH (09:41)
[2020-12-06] MEDS: DILTIAZEM HCL 120 MG SR CAP PO SCH (09:42)
[2020-12-06] MEDS: ENOXAPARIN 40 MG/0.4 ML SQ SCH (09:42)
[2020-12-06] MEDS: predniSONE 20 MG TAB PO SCH (09:42)
[2020-12-06] MEDS: ACYCLOVIR 400 MG TABLET PO SCH (09:43)
[2020-12-06 10:00] LABS: Blood Morphology Comment NOT SEEN (NOT SEEN); Platelet Estimate ADEQ; Platelets, Giant FEW; White Blood Cell Scan OK (OK)
--- NOTE | 2020-12-06 11:16 | P.DS ---
Admission Date: 12/05/20 Discharge Date: 12/06/20 Disposition: ROUTINE DISCHARGE Discharge Condition: FAIR Reason for Admission: stroke rule out Consultations: Neurology-Dr. Longo - Problems (1) Facial paralysis on left side Current Visit: Yes Status: Acute (2) Back pain Current Visit: Yes Status: Acute (3) Bipolar disorder Onset Date: 08/15/17 Current Visit: No Status: Acute Qualifiers: Active/Remission status: currently active Current bipolar episode type: mixed Current episode severity: moderate Qualified Code(s): F31.62 - Bipolar disorder, current episode mixed, moderate (4) Hypothyroidism Onset Date: 08/15/17 Current Visit: No Status: Chronic Qualifiers: Hypothyroidism type: acquired Qualified Code(s): E03.9 - Hypothyroidism, unspecified (5) Obesity Onset Date: 08/15/17 Current Visit: No Status: Chronic Qualifiers: Obesity type: due to excess calories Obesity classification: unspecified obesity classification Serious obesity comorbidity presence: without serious comorbidity Qualified Code(s): E66.09 - Other obesity due to excess calories Brief History of Present Illness: 45-year-old woman with a past medical history hypertension, hyperlipidemia, diabetes mellitus, warm hemolytic anemia presented to the emergency department with a complaint of sudden onset slurred speech, left facial weakness and blurry vision. CT head done was negative. Other workup in the ED unremarkable. Patient was placed under observation for further stroke workup. Hospital Course: Patient placed under observation. She was placed on aspirin and statin. MRI of the brain done did not show any acute changes, no acute infarct. Patient seen by speech who recommended soft diet. She had no limb weakness. Patient was seen and evaluated by neurology-Dr. 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 She has been stable, her symptoms have not progressed. Patient deemed clinically stable for discharge. She is discharged with valacyclovir and prednisone 60 mg daily for 1 week. Vital Signs/Physical Exam: Temp Pulse Resp BP Pulse Ox 97.6 F 103 H 18 125/60 95 12/06/20 08:00 12/06/20 09:42 12/06/20 08:00 12/06/20 09:42 12/06/20 08:00 General: Alert, In no apparent distress, Oriented x3 HEENT: Mucous membr. moist/pink Neck: JVD not distended Respiratory: Clear to auscultation bilaterally, Normal air movement Cardiovascular: No edema, Regular rate/rhythm, Normal S1 S2 Gastrointestinal: Soft and benign, Non-distended, No tenderness Musculoskeletal: No swelling, No tenderness Integumentary: No rashes Neurological: Normal speech, Normal strength at 5/5 x4 extr, Other (Left facial weakness.) Laboratory Data at Discharge: WBC 7.00 K/uL (4.3-10.9) 12/06/20 06:08 Hgb 13.0 g/dL (12.0-15.0) 12/06/20 06:08 Hct 37.6 % (36.0-45.0) 12/06/20 06:08 Plt Count 220 K/uL (152-406) 12/06/20 06:08 PT 10.7 SECONDS (9.5-12.5) 12/04/20 20:15 INR 0.93 12/04/20 20:15 APTT 30.2 SECONDS (24.3-36.9) 12/04/20 20:15 Sodium 139 mmol/L (136-145) 12/06/20 06:08 Potassium 4.4 mmol/L (3.5-5.1) 12/06/20 06:08 BUN 11 mg/dL (7-18) 12/06/20 06:08 Creatinine 0.83 mg/dL (0.55-1.3) 12/06/20 06:08 Glucose 142 mg/dL (74-106) H 12/06/20 06:08 Magnesium 2.1 mg/dL (1.8-2.4) 12/04/20 20:15 Total Bilirubin 1.6 mg/dL (0.2-1.0) H 12/06/20 06:08 AST 56 U/L (15-37) H 12/06/20 06:08 ALT 73 U/L (12-78) 12/06/20 06:08 Alkaline Phosphatase 174 U/L (45-117) H 12/06/20 06:08 Triglycerides 152 mg/dL (<150) H 12/06/20 06:08 Cholesterol 173 mg/dL (<200) 12/06/20 06:08 HDL Cholesterol 44 mg/dL (40-60) 12/06/20 06:08 Cholesterol/HDL Ratio 3.93 12/06/20 06:08 Home Medications: Amitriptyline [Elavil*] 50 mg PO BEDTIME 08/14/17 Ascorbic Acid [Vitamin C with Yaima Hips] 1,000 mg PO DAILY 08/14/17 Cholecalciferol (Vitamin D3) [Vitamin D3] 1,000 unit PO DAILY 08/14/17 Citalopram Hydrobromide [Citalopram HBr] 40 mg PO DAILY 08/14/17 Cyanocobalamin (Vitamin B-12) [Cyanocobalamin Injection] 1 ml IM DIRECTED 08/14/17 Docusate Sodium [Stool Softener] 50 mg PO DAILY 08/14/17 Ferrous Sulfate [Ferrous Sulfate*] 1 tab PO TID 08/14/17 Fluticasone Propionate [Flonase Allergy Relief] 9.9 ml NS DAILY 08/14/17 Folic Acid 0.4 mg PO DAILY 08/14/17 Levothyroxine [Synthroid*] 50 mcg PO [id number] 08/14/17 Loratadine [Claritin*] 10 mg PO DAILY 08/14/17 Multivitamin with Minerals [Multivitamins with Minerals] 1 each PO DAILY 08/14/17 Cyclobenzaprine HCl [Flexeril] 5 mg PO Q8HR PRN 12/05/20 Diltiazem HCl [Cartia Xt] 120 mg PO BID 12/05/20 Losartan Potassium 50 mg PO BID 12/05/20 Omeprazole 20 mg PO 12/05/20 Pregabalin [Lyrica] 150 mg PO TID 12/05/20 Rosuvastatin [Crestor*] 10 mg PO BEDTIME 12/05/20 Valacyclovir HCl [Valacyclovir] 1,000 mg PO TID #21 tablet 12/06/20 predniSONE [Prednisone*] 60 mg PO DAILY #21 tab 12/06/20 New Medications: predniSONE [Prednisone*] 60 mg PO DAILY #21 tab Valacyclovir HCl [Valacyclovir] 1,000 mg PO TID #21 tablet Diet: AHA Activity: Ad jeni Followup: Unknown,U [Primary Care Provider] - 1-2 Weeks
[2020-12-06 13:58] VITALS: BP 114/75; TEMP 97.1
== END 2020-12-06 12:37 | disposition home or self-care (01) ==
LOC: ER 19:51 → ERHOLD 12-05 01:14 → 2ND 12-05 16:38
PROVIDERS: ADMIT Internal Medicine; ATTEND Internal Medicine
DX: G51.0 Bell's palsy (principal); E11.9 Type 2 diabetes mellitus without complications; I11.0 Hypertensive heart disease with heart failure; I50.9 Heart failure, unspecified; E78.5 Hyperlipidemia, unspecified; J45.909 Unspecified asthma, uncomplicated; D59.11 Warm autoimmune hemolytic anemia; F32.9 Major depressive disorder, single episode, unspecified; F41.9 Anxiety disorder, unspecified; D51.0 Vitamin B12 deficiency anemia due to intrinsic factor deficiency; E03.9 Hypothyroidism, unspecified; G62.9 Polyneuropathy, unspecified; E78.00 Pure hypercholesterolemia, unspecified; R00.0 Tachycardia, unspecified; G47.30 Sleep apnea, unspecified; G43.909 Migraine, unspecified, not intractable, without status migrainosus; M54.9 Dorsalgia, unspecified; F81.9 Developmental disorder of scholastic skills, unspecified; E66.9 Obesity, unspecified; Z68.42 Body mass index [BMI] 45.0-49.9, adult; Z98.51 Tubal ligation status; Z20.822 Contact with and (suspected) exposure to COVID-19; Z88.0 Allergy status to penicillin; Z88.6 Allergy status to analgesic agent; Z88.8 Allergy status to other drugs, medicaments and biological substances; Z90.49 Acquired absence of other specified parts of digestive tract; Z82.49 Family history of ischemic heart disease and other diseases of the circulatory system; Z83.3 Family history of diabetes mellitus
CPT/HCPCS: 93005; 93306; 85025 ×2; 80048; 36415 ×2; 83735; 85610; 80061; 82947 ×6; 85730; 84436; 84443; 82248; 84484; 80053; 83880; 70496; 70498; 70450; 71045; 71046; 72100; 70553; 92610; 99285; U0003; Q9967; A9577; J1650 ×2; J2405 ×2; G0378; J7512

== ENCOUNTER 2021-03-04 07:46 | Emergency (ER) | payer OTHER ==
--- OUTSIDE RECORDS SUMMARY | 2021-03-04 07:49 | XMS REPORT | Continuity of Care Document ---
:1975 Author Organization [facility] t Address [address] [place] [address] Care Team Providers Name Role Phone Gomez HOLLINS, K.H. Attending Clinician Problems This patient has no known problems. Allergies, Adverse Reactions, Alerts This patient has no known allergies or adverse reactions. Medications This patient has no known medications. Procedures This patient has no known procedures. Encounters Start End Encounter Admission Attending Care Care Encounter Source Date/Time Date/Time Type Type Clinicians Facility Department ID 2021-02-25 2021-02-25 Telephone IVETT [place] [id number] 00:00:00 00:00:00 Ricardo De León [id number] [place] [id number] [facility] [id number] nal 059 Building Results This patient has no known results.
[2021-03-04] MEDS ORDERED: NA CHLORIDE 0.9% 500 ML ONE (08:33)
[2021-03-04 08:37] LABS: Basophils % 1.1 % (0-1.3); Hematocrit 38.2 % (36.0-45.0); Lymphocytes % 14.3 % (15.3-44.8)
[2021-03-04 08:51] LABS: BUN Blood Urea Nitrogen 9 mg/dL (7-18); Bicarbonate 29 mmol/L (21-32); Glucose Level 143 mg/dL (74-106); NT PRO-BNP 94 pg/mL (<125); Potassium 3.8 mmol/L (3.5-5.1); Sodium Level 140 mmol/L (136-145); Troponin (Emerg Dept Use Only) < 0.02 ng/mL (0.0-0.045)
--- NOTE | 2021-03-04 08:57 | RAD REPORT ---
EXAM DESCRIPTION: CT - Head Brain Wo Cont - 03/04/2021 8:31 am CLINICAL HISTORY: Dizziness;Headache COMPARISON: Ct Stroke Brain Wo Cont dated 12/04/2020 TECHNIQUE: Axial 5 mm thick images of the head were obtained without IV contrast. All CT scans are performed using dose optimization technique as appropriate and may include automated exposure control or mA/KV adjustment according to patient size. FINDINGS: Significant asymmetry is created by patient head tilt. No intracranial hemorrhage, mass, edema or shift of mid-line structures. No acute infarction changes seen. No abnormal extra-axial fluid collections. Ventricles are normal. No significant atrophy or chr onic ischemic changes are identifiable. Brain parenchyma is similar to the November comparison. Mastoid air cells and visualized portions of the paranasal sinuses are clear. No acute bony findings. IMPRESSION: Negative non-contrast CT head examination for acute finding. No significant change from December 04 exam.
[2021-03-04 09:17] LABS: Urine Blood Negative (Negative); Urine Glucose Negative (Negative); Urine Protein Negative (Negative); Urine pH 6.5 (5.0-7.0)
--- NOTE | 2021-03-04 09:34 | RAD REPORT ---
EXAM DESCRIPTION: RAD - Chest Single View - 03/04/2021 9:11 am CLINICAL HISTORY: DYSPNEA COMPARISON: December 05 TECHNIQUE: AP portable chest image was obtained 03/04/2021 9:11 am . FINDINGS: Lung volumes are very low. Large body habitus accentuates heart, vasculature and lung khari ings. No new mass or consolidation identifiable. Heart size is upper normal but stable. Central vascu lature mildly prominent as well. No measurable pleural effusion and no pneumothorax. No acute bony ab normality seen. No acute aortic findings suspected. IMPRESSION: Limited portable study is not substantially different from prior imaging. Mild failure or volume overload is suspected.
--- NOTE | 2021-03-04 09:36 | EDPHYS ---
Physician Documentation [facility] Name: Linda Rahman Age: 45 yrs Sex: Female : 1975 Arrival Date: 03/04/2021 Time: 08:01 Bed 13 Private MD: ED Physician Tommy Orellana HPI: 03/04 08:12 This 45 yrs old Female presents to ER via Ambulatory with complaints of Low rn Blood Sugar. 08:12 This 45 yrs old Female presents to ER via Ambulatory with complaints of rn dizziness, Low Blood Sugar. 08:12 The patient or guardian reports. rn 08:12 The patient presents with dizziness, generalized weakness, lightheadedness. Onset: The rn symptoms/episode began/occurred this morning. Modifying factors: The symptoms are alleviated by lying down, the symptoms are aggravated by standing up. Associated signs and symptoms: Pertinent positives: headache, Pertinent negatives: chest pain, confusion, diaphoresis, focal weakness, head injury, seizure, syncope, vomiting. Severity of symptoms: At their worst the symptoms were moderate in the emergency department the symptoms have improved. The patient has experienced similar episodes in the past. The patient has not recently seen a physician. Reports woke up dizzy this AM. + headache. No fever. No head injury. No vomiting/diarrhea/chest pain. No fever. Doesn't feel ill. Reports woke up lightheaded and dizzy, no syncope. Reports has felt like this "all [my] life", worse when used to work, doesn't work anymore. No change in medication recently. No focal weakness. . 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 - tw2 Historical: - Allergies: 08:09 Amoxicillin; tw2 08:09 Benadryl; tw2 08:09 Benzonatate; tw2 08:09 Codeine; tw2 08:09 Demerol; tw2 08:09 Geodon; tw2 08:09 Ibuprofen; tw 08:09 Lorazepam; tw2 08:09 Meclizine; tw 08:09 Tessalon Perles; tw2 - Home Meds: 08:09 amitriptyline 50 mg Oral tab nightly [Active]; atorvastatin 10 mg Oral tab nightly tw2 [Active]; buspirone 10 mg Oral tab 1 tab 2 times per day [Active]; citalopram 40 mg tab 1 tab once daily [Active]; Colace Oral once daily [Active]; cyanocobalamin (vitamin B-12) 1,000 mcg Oral tab monthly [Active]; ferrous sulfate 325 mg (65 mg iron) Oral TbEC three times a day [Active]; Flovent Inhl [Active]; Folic Acid Oral [Active]; gabapentin 300 mg Oral cap 2 caps nightly [Active]; ibuprofen 600 mg Oral tab every 6 hours for Pain [Active]; levothyroxine 50 mcg tab 1 tab once daily [Active]; loratadine 10 mg Oral tab 1 tab once daily [Active]; losartan 50 mg Oral tab [Active]; lurasidone 40mg Oral once daily [Active]; Multi Vitamin Oral [Active]; Prilosec Oral [Active]; Skelaxin Oral [Active]; Vitamin C Oral [Active]; Vitamin D3 Oral [Active]; Zanaflex Oral [Active]; - PMHx: 08:09 Anemia; High Cholesterol; Hypertension; neuropathy; tw2 - Immunization history:: Adult Immunizations. - Social history:: Smoking status: . - Family history:: not pertinent. - Hospitalizations: : No recent hospitalization is reported. ROS: 08:12 Constitutional: Negative for fever, chills, and weight loss, Eyes: Negative for injury, rn pain, redness, and discharge, Neck: Negative for injury, pain, and swelling, Cardiovascular: Negative for chest pain, palpitations, and edema, Respiratory: Negative for shortness of breath, cough, wheezing, and pleuritic chest pain, Abdomen/GI: Negative for abdominal pain, nausea, vomiting, diarrhea, and constipation, Back: Negative for injury and pain, MS/Extremity: Negative for injury and deformity, Skin: Negative for injury, rash, and discoloration, Neuro: Negative for numbness, tingling, and seizure. Exam: 08:12 Constitutional: Overweight woman, no acute distress Head/Face: Normocephalic, rn atraumatic. Eyes: Periorbital areas with no swelling, redness, or edema. ENT: dry MM Cardiovascular: Regular rate and rhythm. No pulse deficits. Respiratory: No increased work of breathing, no retractions or nasal flaring. Abdomen/GI: soft, non-tender Skin: Warm, dry MS/ Extremity: Pulses equal, no cyanosis. Neuro: Awake and alert, GCS 15, oriented to person, place, time, and situation. Cranial nerves II-XII grossly intact. Motor strength 4/5 in all extremities. Sensory grossly intact. 08:38 ECG was reviewed by the Attending Physician. rn Vital Signs: 08:05 BP 141 / 94; Pulse 98; Resp 17; Temp 98.2(TE); Pulse Ox 98% on R/A; Weight 106.59 kg tw2 (R); Height 5 ft. 2 in. (157.48 cm); 09:39 BP 144 / 83; Pulse 93; Resp 17; Pulse Ox 100% on R/A; tw2 08:05 Body Mass Index 42.98 (106.59 kg, 157.48 cm) tw2 MDM: 08:02 Patient medically screened. rn 09:34 Differential diagnosis: cardiac arrhythmia, generalized weakness, GI bleed, rn hypovolemia, idiopathic dizziness, TIA, vertigo, UTI. Data reviewed: vital signs, nurses notes, lab test result(s), EKG, radiologic studies, CT scan, plain films, and as a result, I will discharge patient. Counseling: I had a detailed discussion with the patient and/or guardian regarding: the historical points, exam findings, and any diagnostic results supporting the discharge/admit diagnosis, lab results, radiology results, the need for outpatient follow up, to return to the emergency department if symptoms worsen or persist or if there are any questions or concerns that arise at home. Response to treatment: the patient's symptoms have mildly improved after treatment, and as a result, I will discharge patient. Special discussion: I discussed with the patient/guardian in detail that at this point there is no indication for admission to the hospital. It is understood, however, that if the symptoms persist or worsen the patient needs to return immediately for re-evaluation. ED course: Stable vitals, ct head neg, no acute findings in bloodwork, + possible UTI. Will dc home with abx and pcp f/u. Return precautions given and understood.. 03/04 08:10 Order name: CBC with Diff rn 03/04 08:10 Order name: Basic Metabolic Panel; Complete Time: 09:29 rn 03/04 08:10 Order name: Urine Microscopic Only rn 03/04 08:10 Order name: Troponin (emerg Dept Use Only); Complete Time: 09:29 rn 03/04 08:10 Order name: BNP; Complete Time: 09:29 rn 03/04 08:11 Order name: CBC with Automated Diff; Complete Time: 09:29 EDMS 03/04 08:10 Order name: CT Head Brain wo Cont; Complete Time: 09:29 rn 03/04 08:10 Order name: XRAY Chest (1 view); Complete Time: 09:36 rn 03/04 08:32 Order name: Glucose, Ancillary Testing; Complete Time: 09:29 EDMS 03/04 09:17 Order name: Urine Dipstick-Ancillary EDMS 03/04 09:34 Order name: Urine --Ancillary (enter results) bd 03/04 09:35 Order name: Urine --Ancillary EDMS 03/04 09:59 Order name: Urine Culture EDMS 03/04 08:10 Order name: IV Start; Complete Time: 08:27 rn 03/04 08:10 Order name: Urine Dipstick-Ancillary (obtain specimen); Complete Time: 08:27 rn 03/04 08:10 Order name: EKG; Complete Time: 08:11 rn 03/04 08:10 Order name: EKG - Nurse/Tech; Complete Time: 08:26 rn 03/04 08:11 Order name: Glucose Level; Complete Time: 08:26 rn EC:38 Rate is 95 beats/min. Rhythm is regular. Left axis deviation noted. QRS is positive in rn lead I and negative in lead aVF. QRS interval is normal. QT interval is normal. No Q waves. T waves are Normal. No ST changes noted. Clinical impression: NSR w/ Non-specific ST/T Changes. Interpreted by me. Reviewed by me. Administered Medications: 08:20 Drug: NS 0.9% 500 ml Route: IV; Rate: bolus; Site: right antecubital; tw2 09:59 Follow up: Response: No adverse reaction; IV Status: Completed infusion; IV Intake: tw2 500ml Point of Care Testing: Blood Glucose: 08:20 Blood Glucose: 147 mg/dL; tw2 Ranges: Critical Glucose Levels:Adult <50 mg/dl or >400 mg/dl <40 mg/dl or >180 mg/dl Disposition: 03/04/21 09:35 Discharged to Home. Impression: Dizziness and giddiness, Urinary tract infection, site not specified. - Condition is Stable. - Discharge Instructions: Dizziness, Urinary Tract Infection, Adult. - Prescriptions for Macrobid 100 mg Oral Capsule - take 1 capsule by ORAL route every 12 hours for 7 days; 14 capsule. - Medication Reconciliation Form, Thank You Letter, Antibiotic Education, Prescription Opioid Use form. - Follow up: Private Physician; When: As needed; Reason: Recheck today's complaints, Re-evaluation by your physician. - Problem is new. - Symptoms have improved. Signatures: Dispatcher [employer] EDMS Tommy Orellana MD MD rn Wise, Tara, RN RN tw2 Corrections: (The following items were deleted from the chart) 10:01 09:35 03/04/2021 09:35 Discharged to Home. Impression: Dizziness and giddiness; Urinary tw2 tract infection, site not specified. Condition is Stable. Forms are Medication Reconciliation Form, Thank You Letter, Antibiotic Education, Prescription Opioid Use. Follow up: Private Physician; When: As needed; Reason: Recheck today's complaints, Re-evaluation by your physician. Problem is new. Symptoms have improved. rn
--- NOTE | 2021-03-04 09:36 | ER ---
Nurse's Notes [facility] Name: Linda Rahman Age: 45 yrs Sex: Female : 1975 Arrival Date: 03/04/2021 Time: 08:01 Bed 13 Private MD: Diagnosis: Dizziness and giddiness;Urinary tract infection, site not specified Presentation: 03/04 08:05 Chief complaint: Patient states: I checked my blood sugar this morning and it was 95 tw2 around 5 this morning but i am still feeling dizzy and i have a headache. Coronavirus screen: At this time, the client does not indicate any symptoms associated with coronavirus-19. Ebola Screen: Patient denies travel to an Ebola-affected area in the 21 days before illness onset. Initial Sepsis Screen: Does the patient meet any 2 criteria? HR > 90 bpm. No. Patient's initial sepsis screen is negative. Does the patient have a suspected source of infection? No. Patient's initial sepsis screen is negative. Risk Assessment: Do you want to hurt yourself or someone else? Patient reports no desire to harm self or others. Note provider at bedside at this time. Onset of symptoms was March 04, 2021. 08:05 Method Of Arrival: Ambulatory tw2 08:05 Acuity: HOLLEY 3 tw2 Triage Assessment: 08:09 General: Appears in no apparent distress. uncomfortable, obese, Behavior is calm, tw2 cooperative, appropriate for age. Pain: Denies pain. EENT: No signs and/or symptoms were reported regarding the EENT system. Neuro: Level of Consciousness is awake, alert, obeys commands, Oriented to person, place, time, situation, Reports dizziness. Cardiovascular: Capillary refill < 3 seconds Patient's skin is warm and dry. Respiratory: Airway is patent Respiratory effort is even, unlabored, Respiratory pattern is regular, symmetrical. GI: No signs and/or symptoms were reported involving the gastrointestinal system. Abdomen is round obese. : No signs and/or symptoms were reported regarding the genitourinary system. Derm: No signs and/or symptoms reported regarding the dermatologic system. Musculoskeletal: Range of motion: intact in all extremities, pt using walking cane. 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 - tw2 Historical: - Allergies: 08:09 Amoxicillin; tw2 08:09 Benadryl; tw2 08:09 Benzonatate; tw2 08:09 Codeine; tw2 08:09 Demerol; tw2 08:09 Geodon; tw2 08:09 Ibuprofen; tw2 08:09 Lorazepam; tw2 08:09 Meclizine; tw2 08:09 Tessalon Perles; tw2 - Home Meds: 08:09 amitriptyline 50 mg Oral tab nightly [Active]; atorvastatin 10 mg Oral tab nightly tw2 [Active]; buspirone 10 mg Oral tab 1 tab 2 times per day [Active]; citalopram 40 mg tab 1 tab once daily [Active]; Colace Oral once daily [Active]; cyanocobalamin (vitamin B-12) 1,000 mcg Oral tab monthly [Active]; ferrous sulfate 325 mg (65 mg iron) Oral TbEC three times a day [Active]; Flovent Inhl [Active]; Folic Acid Oral [Active]; gabapentin 300 mg Oral cap 2 caps nightly [Active]; ibuprofen 600 mg Oral tab every 6 hours for Pain [Active]; levothyroxine 50 mcg tab 1 tab once daily [Active]; loratadine 10 mg Oral tab 1 tab once daily [Active]; losartan 50 mg Oral tab [Active]; lurasidone 40mg Oral once daily [Active]; Multi Vitamin Oral [Active]; Prilosec Oral [Active]; Skelaxin Oral [Active]; Vitamin C Oral [Active]; Vitamin D3 Oral [Active]; Zanaflex Oral [Active]; - PMHx: 08:09 Anemia; High Cholesterol; Hypertension; neuropathy; tw2 - Immunization history:: Adult Immunizations. - Social history:: Smoking status: . - Family history:: not pertinent. - Hospitalizations: : No recent hospitalization is reported. Screenin:10 Abuse screen: Denies threats or abuse. Nutritional screening: No deficits noted. tw2 Tuberculosis screening: No symptoms or risk factors identified. Fall Risk Secondary diagnosis (15 points) impaired mobility, Ambulatory Aid- Crutches/Cane/Walker (15 pts). Assessment: 08:27 Reassessment: see triage assessment. tw2 09:39 Reassessment: Patient appears in no apparent distress at this time. No changes from tw2 previously documented assessment. Patient and/or family updated on plan of care and expected duration. Pain level reassessed. Patient is alert, oriented x 3, equal unlabored respirations, skin warm/dry/pink. 10:01 Reassessment: Patient appears in no apparent distress at this time. No changes from tw2 previously documented assessment. Patient and/or family updated on plan of care and expected duration. Pain level reassessed. Patient is alert, oriented x 3, equal unlabored respirations, skin warm/dry/pink. Vital Signs: 08:05 BP 141 / 94; Pulse 98; Resp 17; Temp 98.2(TE); Pulse Ox 98% on R/A; Weight 106.59 kg tw2 (R); Height 5 ft. 2 in. (157.48 cm); 09:39 BP 144 / 83; Pulse 93; Resp 17; Pulse Ox 100% on R/A; tw2 08:05 Body Mass Index 42.98 (106.59 kg, 157.48 cm) tw2 ED Course: 08:01 Patient arrived in ED. mr 08:02 Tommy Orellana MD is Attending Physician. rn 08:03 Bed in low position. Call light in reach. Side rails up X 1. Pulse ox on. NIBP on. tw2 08:05 Ling Schmitz, ABDULLAHI is Primary Nurse. tw2 08:06 Triage completed. tw2 08:10 Arm band placed on. tw2 08:20 Missed attempt(s): 20 gauge in right forearm. Bleeding controlled, band aid applied, tw2 catheter tip intact. Inserted saline lock: 22 gauge in right antecubital area, using aseptic technique. Blood collected. 08:27 EKG done, by ED staff, reviewed by Tommy Orellana MD. jd3 08:31 CT Head Brain wo Cont In Process Unspecified. EDMS 09:11 XRAY Chest (1 view) In Process Unspecified. EDMS 09:17 Urine Microscopic Only Sent. tw2 09:43 Awaiting: completion of IV fluids PRIOR to discharge. tw2 10:00 No provider procedures requiring assistance completed. IV discontinued, intact, tw2 bleeding controlled, No redness/swelling at site. Pressure dressing applied. Administered Medications: 08:20 Drug: NS 0.9% 500 ml Route: IV; Rate: bolus; Site: right antecubital; tw2 09:59 Follow up: Response: No adverse reaction; IV Status: Completed infusion; IV Intake: tw2 500ml Point of Care Testing: Blood Glucose: 08:20 Blood Glucose: 147 mg/dL; tw2 Ranges: Intake: 09:59 IV: 500ml; Total: 500ml. tw2 Outcome: 09:35 Discharge ordered by . rn 10:00 Discharged to home ambulatory, with cane tw2 10:00 Condition: stable 10:00 Discharge instructions given to patient, Instructed on discharge instructions, follow up and referral plans. medication usage, Demonstrated understanding of instructions, follow-up care, medications, Prescriptions given X 1. 10:01 Patient left the ED. tw2 Addendum: 03/07/2021 07:18 Addendum: Culture Results: Positive urine culture. No further action required. Bacteria e b sensitive to prescribed antibiotic. Signatures: Dispatcher [employer] Nely Chiang Roman, MD MD rn Wise, Tara, RN RN tw2 Patric Lange RN RN oZey Chowdary
[2021-03-04 09:59] LABS: Urine Bacteria LOADED /HPF (<20); Urine RBC <5 /HPF (NONE SEEN)
[2021-03-04 10:14] VITALS: TEMP 98.2
[2021-03-04 10:34] VITALS: BP 144/83; O2SAT 100
== END 2021-03-04 10:01 | disposition home or self-care (01) ==
LOC: ER 07:46
DX: N39.0 Urinary tract infection, site not specified (principal); I10 Essential (primary) hypertension; E78.00 Pure hypercholesterolemia, unspecified; Z88.1 Allergy status to other antibiotic agents; Z88.5 Allergy status to narcotic agent; Z88.8 Allergy status to other drugs, medicaments and biological substances
CPT/HCPCS: 87088; 85025; 87086; 80048; 36415; 81025; 82947; 84484; 83880; 70450; 71045; J7040; 81003; 81015; 87077; 87186; 93005; 96360; 96361; 99284

== ENCOUNTER 2021-05-25 23:30 | Emergency (ER) | payer OTHER ==
--- OUTSIDE RECORDS SUMMARY | 2021-05-25 23:35 | XMS REPORT | Continuity of Care Document ---
:1975 Author Organization [facility] t Address [address] [place] [address] Care Team Providers Name Role Phone Josemanuel HOLLINS, A Primary Care Physician David NI, G Attending Clinician Josemanuel HOLLINS, A Attending Clinician Gomez HOLLINS, K.H. Attending Clinician Payers Payer Name Policy Type Policy Number Effective Date Expiration Date S [facility] [id number] 2020 Univers ity of - MANAGED 00:00:00 [place] Medical MEDICAREWELLMED/U Branch HC DUAL COMP HMO D [id number] 021-PresentMedica re Adv O [facility] [id number] 2016 Univers ity of COMM PLAN - 00:00:00 [place] [facility] MANAGED Branch [facility] [place] ST[facility] [id number]/2016-PresentMedic aid TMHPMEDICAID OF [id number] 2016 Universit y of [id number]/ 00:00:[address] [facility] angelica 09/2015-[id number] Branch [phone] [place] [id number] d Advance Directives Directive Decision Effective Termination Comments Source Date Date Healthcare Agents on N/A Univ ersity FileNameRelationshipHealthcare [facility] Agent Medical RelationshipCommunicationDelpha Branch PriceMotherHealth Care [phone] (Mobile) Kei AguillonFatherFirst [facility] [phone] (Mobile) Problems Condition Condition Condition Status Onset Resolution Last Treating Co mments Source Name Details Category Date Date Treatment Clinician Date Dental Dental Disease Active Univers caries caries 5-20 ity of 00:00: [place] 00 Medical Branch Chronic Chronic Disease Active Univers dental dental 5-20 ity of pain pain 00:00: [place] [facility] Macrogloss Macrogloss Disease Active U evelyn ia ia 5-20 ity of 00:00: [place] 00 Medical Branch 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 2-16 ity of mellitus mellitus 00:00: [place] with with 00 Medical hyperglyce hyperglyce Br anch gallito, gallito, without without long-term long-term current current use of use of insulin insulin 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 2 ed type 2 2-11 ity of diabetes diabetes 00:00: [place] mellitus mellitus 00 Medica l with with Branch hyperglyce hyperglyce gallito gallito Morbid Morbid Disease Active Univers obesity obesity 5-06 ity of with body with body 00:00[place] mass index mass index 00 Me dical of of Branch 40.0-49.9 40.0-49.9 SI joint SI joint Disease Active Unive rs arthritis arthritis 1-11 ity of 00:00: [place] [facility] Umbilical Umbilical Disease Active Uni vers hernia hernia 1-11 ity of 00:00: [place] 00 Medical Branch Renal Renal Disease Active Univers cyst, cyst, 1-11 ity of right right 00:00: [place] 00 Medical Branch GERD GERD Disease Active 2016-09 Univers (gastroeso (gastroeso 2-04 it y of phageal phageal 00:00: [place] reflux reflux 00 Medical disease) disease) Branch Trochanter Trochanter Disease Active 2016-09 U evelyn ic ic 2-04 ity of bursitis bursitis 00:00: [place] of both of both 00 Medical hips hips Branch Intellectu Intellectu Disease Active U evelyn al al 9-14 ity of disability disability 00:00[place] [facility] [place] MJ MJ Disease Active Univers (obstructi (obstructi 7-18 it y of ve sleep ve sleep 00:00: [place] apnea) apnea) 00 Medical Branch Multiple Multiple Disease Active Unive rs thyroid thyroid 7-10 ity of nodules nodules 00:00: [place] [facility] Tremor Tremor Disease Active Univers 7-10 ity of 00:00: [place] [facility] Twitching Twitching Disease Active Uni vers 7-10 ity of 00:00: [place] 00 Medical Branch Asthma, Asthma, Disease Active Univers mild mild 5-23 ity of persistent persistent 00:00: [place] [facility] [place] Fatty Fatty Disease Active Univers liver liver 3-24 ity of 00:00: [place] 00 Medical Branch Hepatomega Hepatomega Disease Active U evelyn ly ly 3-24 ity of 00:00: [place] [facility] Obesity Obesity Disease Active Univers (BMI (BMI 2-12 ity of 30-39.9) 30-39.9) 00:00: [place] 00 Medical Branch Sinus Sinus Disease Active Univers tachycardi tachycardi 1-02 it y of a a 00:00: [place] [facility] Dyslipidem Dyslipidem Disease Active 2015-09 U evelyn ia ia 1-22 ity of 00:00: [place] [facility] Vitamin Vitamin Disease Active 2015-09 Univers B12 B12 1-10 ity of deficiency deficiency 00:00: [place] [facility] [place] 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 6-09 ity of 00:00: [place] 00 Medical Branch Abnormal Abnormal Disease Active Unive rs uterine uterine 5-23 ity of bleeding bleeding 00:00: [place] [facility] Submucous Submucous Disease Active Uni vers leiomyoma leiomyoma 5-23 ity of of uterus of uterus 00:00[place] Encounter Encounter Disease Active Uni vers for blood for blood 2-16 ity of transfusio transfusio 00:00[place] 00 [place] History of History of Disease Active U evelyn tubal tubal 2-05 ity of ligation ligation 00:00: [place] 00 Medical Branch 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 00:[place] disorder, disorder, 00 [facility] in in Branch remission remission Hypothyroi Hypothyroi Disease Active U nivers d d 2-05 ity of 00:00: [place] [facility] Essential Essential Disease Active Uni vers hypertensi hypertensi 2-05 it y of on, benign on, benign 00:00[place] [facility] Well woman Well woman Disease Active U nivers exam exam 2-05 ity of 00:00: [place] [facility] Branch Chest pain Chest pain Disease Active U nivers 9-13 ity of 00:00: [facility] Peripheral Peripheral Disease Active U nivers neuropathy neuropathy it y of [facility] 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 ity of [facility] PCOS PCOS Disease Active Univers (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) [facility] Branch Allergies, Adverse Reactions, Alerts Allergy Allergy Status Severity Reaction(s) Onset Inactive Treating Comm ents Source Name Type Date Date Clinician Milk Propensi Active Other - See sneeze Uni vers ty to comments 8-14 ity of adverse 00:00: [place] reaction Medical Branch Tomato Propensi Active Other - See Tomato Uni vers ty to comments 7-09 source ity of adverse 00:00: reportedl [place] reaction y causes Medica l s excessive Branch sneezing. But pt still eats it. Codeine Propensi Active Itching Univer s ty to 1-17 ity of adverse 00:00: [place] reaction Medical s Branch Lorazepa Propensi Active Swelling 2016-09 Hard to Uni vers m ty to 0-02 swallow ity of adverse 00:00: [place] reaction Medical s Branch Diphenhy Propensi Active Swelling Univ ers dramine ty to 7-18 ity of Hcl adverse 00:00: [place] reaction Medical s Branch Benzonat Propensi Active Swelling Tightness U nivers ate ty to 2-09 in ity of adverse 00:00: throat, [place] reaction difficult Medic al s to y Branch drug swallowin g and breathing Meclizin Propensi Active Anaphylaxis 2016- U nivers e ty to 10-18 ity of adverse 00:00: [place] reaction 00 [facility] Branch Amoxicil Propensi Active Hives Univer s franca ty to 05-30 ity of adverse 00:00: [place] reaction [facility] Branch Meperidi Propensi Active Hallucinatio Univers ne Hcl ty to ns 05-30 ity of adverse 00:00: [place] reaction [facility] Branch Ziprasid Propensi Active Hives Univer s one Hcl ty to 05-30 ity of adverse 00:00: [place] reaction 00 [facility] Social History Social Habit Start Date Stop Date Quantity Comments Source Exposure to Not sure [place] of SARS-CoV-2 (event) [facility] Cigarettes smoked 2021-05-08 2021-05-08 Univers ity of current (pack per 00:00:00 00:00:00 ) - Reported [place] Cigarette 2021-05-08 2021-05-08 University of pack-years 00:00:00 00:00:00 [facility] Tobacco use and 2021-05-08 2021-05-08 Never used Universit y of exposure 00:00:00 00:00:00 [facility] Alcohol intake 2021-05-08 2021-05-08 Current University of 00:00:00 00:00:00 non-drinker of [facility] alcohol [place] (finding) History of tobacco 1982-10-20 2007-10-20 Smoker Univer sity of use 00:00:00 00:00:00 [facility] Sex [birth year] Universit y of 00:00:00 00:00:00 [facility] Smoking Status Start Date Stop Date Source Former smoker 2021-05-08 00:00:00 2021-05-08 00:00:[address] [facility] Medications Ordered Filled Start Stop Current Ordering Indication Dosage Frequency Signature Comments Components Source Medication Medication Date Date Medication? Clinician (SIG) Name Name pregabalin Yes [id number] 150mg Take 1 Univers 150 mg 8-24 capsule by ity of capsule 00:00: mouth 3 [place] 00 (three) Medical times [place] daily. pregabalin 2021-0 Yes [id number] 150mg Take 1 Univers 150 mg 8-24 capsule by ity of capsule 00:00: mouth 3 (three) Medical times Branch daily. methylPREDN 2020-0 Yes [id number] 84mg Take 21 Univers ISolone 8-13 tablets by ity of (MEDROL, 00:00: mouth [place],) 4 mg 00 SEE-INSTRU Med ical tablets CTIONS. Branch follow package directions methylPREDN 2020-0 Yes [id number] 84mg Take 21 Univers ISolone 8-13 tablets by ity of (MEDROL, 00:00: mouth [place],) 4 mg 00 SEE-INSTRU Med ical tablets CTIONS. Branch follow package directions diclofenac 2020-0 Yes [id number] 75mg Take 1 U nivers 75 mg EC 8-04 tablet by ity of tablet 00:00: mouth 2 (two) Medical times Branch daily with meals. AMITRIPTYLI 2020-0 Yes [id number] 100mg TAKE 2 Univers NE 50 mg 8-04 TABLETS BY ity o f tablet 00:00: MOUTH AT [place] BEDTIME Medical Branch METFORMIN 2020-0 Yes [id number] TAKE 1 Un jerrod 500 mg 8-04 TABLET BY ity of tablet 00:00: MOUTH TWICE Medical DAILY WITH Branch MEALS diclofenac 2020-0 Yes [id number] 75mg Take 1 U nivers 75 mg EC 8-04 tablet by ity of tablet 00:00: mouth 2 (two) Medical times Branch daily with meals. AMITRIPTYLI 2020-0 Yes [id number] 100mg TAKE 2 Univers NE 50 mg 8-04 TABLETS BY ity o f tablet 00:00: MOUTH AT [place] BEDTIME Medical Branch METFORMIN 2020-0 Yes [id number] TAKE 1 Un jerrod 500 mg 8-04 TABLET BY ity of tablet 00:00: MOUTH TWICE Medical DAILY WITH Branch MEALS rosuvastati 2020-0 Yes 10mg Take 1 Univ ers n 10 mg 8-03 tablet by ity of tablet 00:00: mouth at [place] bedtime. Medical Branch rosuvastati 2020-0 Yes 10mg Take 1 Univ ers n 10 mg 8-03 tablet by ity of tablet 00:00: mouth at [place] [address] bedtime. Medical Branch methylPREDN 2020-0 Yes [id number] Follow Univers ISolone 4 04-21 package ity of mg tablets 00:00: directions [place] Branch methylPREDN 2020-0 Yes [id number] Follow Univers ISolone 4 727 package ity of mg tablets 00:00: directions [place] naproxen 2020-0 Yes [id number] 375mg Take 1 U nivers 375 mg 7-13 tablet by ity of tablet 00:00: mouth 2 (two) Medical times Branch daily with meals. traMADoL 50 2020-0 Yes [id number] 50mg Take 1 Univ ers mg tablet 7-13 tablet by ity o f 00:00: mouth [place] 00 every 6 Medical (six) Branch hours. Indication s: acute pain naproxen 2020-0 Yes [id number] 375mg Take 1 U nivers 375 mg 7-13 tablet by ity of tablet 00:00: mouth 2 (two) Medical times Branch daily with meals. traMADoL 50 2020-0 Yes [id number] 50mg Take 1 Univ ers mg tablet 7-13 tablet by ity o f 00:00: mouth [place] 00 every 6 Medical (six) Branch hours. Indication s: acute pain ibuprofen 2020-0 Yes [id number] 600mg Take 1 Univers 600 mg 7-07 9103 tablet by ity of tablet 00:00: mouth [place] 00 every 8 Medical (eight) Branch hours as needed for Pain (scale 4-6). ibuprofen 2020-0 Yes [id number] 600mg Take 1 Univers 600 mg 7-07 9103 tablet by ity of tablet 00:00: mouth [place] 00 every 8 Medical (eight) Branch hours as needed for Pain (scale 4-6). hydrOXYzine 2020-0 Yes [id number] 1-2 tabs Univers 25 mg 7-03 Every 6hr ity of tablet 00:00: as needed [place] 00 for itch Medical or rash, Branch usual is 3 times a day. triamcinolo 2020-0 Yes [id number] Apply to Univers ne 0.025 % 7-03 area(s) 3 ity of ointment 00:00: (three) [place] 00 times Medical daily. For Branch itching hydrOXYzine 2020-0 Yes [id number] 1-2 tabs Univers 25 mg 7-03 Every 6hr ity of tablet 00:00: as needed [place] 00 for itch Medical or rash, Branch usual is 3 times a day. triamcinolo Yes [id number] Apply to Univers ne 0.025 % 7-03 area(s) 3 ity of ointment 00:00: (three) [place] 00 times Medical daily. For Branch itching mirabegron Yes [id number] 50mg Take 1 Univers (MYRBETRIQ) 6-30 tablet by ity of 50 mg 00:00: mouth [place] tablet 00 daily. Medical Branch mirabegron Yes [id number] 50mg Take 1 Univers (MYRBETRIQ) 6-30 tablet by ity of 50 mg 00:00: mouth [place] tablet 00 daily. Medical Branch mirabegron Yes [id number] 50mg Take 1 Univers (MYRBETRIQ) 6-18 tablet by ity of 50 mg 00:00: mouth [place] tablet 00 daily. Medical Branch diltiazem Yes [id number] 120mg Take 1 U nivers (CARTIA XT) 6-18 capsule by it y of 120 mg 24 00:00: mouth 2 [place] hr capsule 00 (two) Medical times Branch daily. mirabegron Yes [id number] 50mg Take 1 Univers (MYRBETRIQ) 6-18 tablet by ity of 50 mg 00:00: mouth [place] tablet 00 daily. Medical Branch diltiazem Yes [id number] 120mg Take 1 U nivers (CARTIA XT) 6-18 capsule by it y of 120 mg 24 00:00: mouth 2 [place] hr capsule 00 (two) Medical times Branch daily. busPIRone Yes [id number] 20mg Take 2 Un jerrod 10 mg 6-16 tablets by ity of tablet 00:00: mouth 2 [place] 00 (two) Medical times Branch daily. busPIRone 0 Yes [id number] 20mg Take 2 Un jerrod 10 mg 6-16 tablets by ity of tablet 00:00: mouth 2 [place] 00 (two) Medical times Branch daily. Nitrofurant Yes [id number] 100mg Take 1 Univers oin&Nit. 6-15 capsule by ity o f Macrocryst 00:00: mouth 2 [place] (MACROBID) 00 (two) Medical 100 mg times Branch capsule daily. Nitrofurant 0 Yes [id number] 100mg Take 1 Univers oin&Nit. 6-15 capsule by ity o f Macrocryst 00:00: mouth 2 [place] (MACROBID) 00 (two) Medical 100 mg times Branch capsule daily. Blood-Gluco 2020-0 Yes [id number] Use twice Univers se Meter 6-14 a day for ity of (ONETOUCH 00:00: ICD CODE [place] VERIO FLEX E11.65 Medical START) Kit Branch blood sugar 0 Yes [id number] Use twice Univers diagnostic 6-14 a day for ity of (ONETOUCH 00:00: ICD CODE [place] VERIO TEST E11.65 Medical STRIPS) Branch strip lancets 0 Yes [id number] Use twice U nivers (ONE TOUCH 6-14 a day for ity of DELICA) 33 00:00: ICD code [place] as gauge Misc 00 E11.65 Medical Branch Lancing 0 Yes [id number] To use Univ ers Device with 6-14 twice a ity o f Lancets 00:00: day for [place] (ONE TOUCH 00 ICD code Medic al DELICA) Kit E11.65 Branch Blood-Gluco 0 Yes [id number] Use twice Univers se Meter 6-14 a day for ity of (ONETOUCH 00:00: ICD CODE [place] VERIO FLEX E11.65 Medical START) Kit Branch blood sugar 0 Yes [id number] Use twice Univers diagnostic 6-14 a day for ity of (ONETOUCH 00:00: ICD CODE [place] VERIO TEST E11.65 Medical STRIPS) Branch strip lancets 0 Yes [id number] Use twice U nivers (ONE TOUCH 6-14 a day for ity of DELICA) 33 00:00: ICD code [place] as gauge Misc 00 E11.65 Medical Branch Lancing 0 Yes [id number] To use Univ ers Device with 6-14 twice a ity o f Lancets 00:00: day for [place] (ONE TOUCH 00 ICD code Medic al DELICA) Kit E11.65 Branch LEVOTHYROXI 0 Yes [id number] TAKE 1 Univers NE 50 mcg 6-01 TABLET BY ity o f tablet 00:00: MOUTH ONCE [place] 00 DAILY IN Medical THE Branch MORNING semaglutide Yes [id number] .5mg inject 0.5 Univers (OZEMPIC) 6-01 mg under ity of 0.25 mg or 00:00: the skin E[place] as 0.5 mg(2 00 weekly. Medical mg/1.5 mL) Branch PnIj cyanocobala Yes [id number] 1000ug 1 mL by Univers min 1,000 6-01 Intramuscu ity of mcg/mL 00:00: lar route [place] injection 00 every 2 Medical (two) Branch weeks. Insulin Yes [id number] Use as Univ ers [place], 02-24 directed ity of Disposable, 00:00: to inject [place] (PEN 00 Ozempic Medical NEEDLE) 32 once Branch gauge x weekly " Ndle LEVOTHYROXI Yes [id number] TAKE 1 Univers NE 50 mcg 6- TABLET BY ity o f tablet 00:00: MOUTH ONCE 00 DAILY IN Medical THE Branch MORNING semaglutide Yes [id number] .5mg inject 0.5 Univers (OZEMPIC) 6-01 mg under ity of 0.25 mg or 00:00: the skin [place] as 0.5 mg(2 00 weekly. Medical mg/1.5 mL) Branch PnIj cyanocobala Yes [id number] 1000ug 1 mL by Univers min 1,000 6-01 Intramuscu ity of mcg/mL 00:00: lar route [place] injection 00 every 2 Medical (two) Branch weeks. Insulin Yes [id number] Use as Univ ers [place], 02-24 directed ity of Disposable, 00:00: to inject [place] (PEN 00 Ozempic Medical NEEDLE) 32 once Branch gauge x weekly " Ndle fluticasone Yes [id number] 2{puff} Inhale 2 Univers propionate 5-11 Puffs ity of (FLOVENT 00:00: every 12 [place] HFA) 110 00 (twelve) Medical mcg/actuati hours. Branch on inhaler Rinse mouth after each use. levalbutero Yes [id number] .63mg Inhale Univers l 0.63 mg/3 5-11 0.63 mg 3 ity of mL 00:00: (three) [place] nebulizer 00 times Medical solution daily as Branch needed for Wheezing or Shortness of Breath. fluticasone 0 Yes [id number] 2{puff} Inhale 2 Univers propionate 5-11 Puffs ity of (FLOVENT 00:00: every 12 [place] HFA) 110 00 (twelve) Medical mcg/actuati hours. Branch on inhaler Rinse mouth after each use. levalbutero 0 Yes [id number] .63mg Inhale Univers l 0.63 mg/3 5-11 0.63 mg 3 ity of mL 00:00: (three) [place] nebulizer 00 times Medical solution daily as Branch needed for Wheezing or Shortness of Breath. BIOTIN ORAL Yes Take by Un jerrod 4-30 mouth. ity of 18:07: [place] Medical Branch BIOTIN ORAL Yes Take by Un jerrod 4-30 mouth. ity of 18:07: [place] [address] Medical Branch METHYLCELLU Yes Univer s LOSE (FIBER 4-30 ity of THERAPY 18:07: [place] MISC) Medical Branch DOCUSATE Yes Take by Unive rs SODIUM 4-30 mouth. ity of (COLACE 18:07: [place] ORAL) Medical Branch vitamin C Yes 1000mg Take 1,000 Univers with derrell 4-30 mg by ity of hips 18:07: mouth [place] (VITAMIN C) 06 daily. Medica l 1,000 mg Branch tablet cholecalcif Yes 1000U Take 1,000 Univers edmar, 4-30 Units by ity of vitamin D3, 18:07: mouth [place] (VITAMIN 06 daily. Medical D3) 1,000 Branch unit tablet CRANBERRY Yes Take by Univ ers FRUIT 4-30 mouth ity of EXTRACT 18:07: daily. [place] (CRANBERRY 06 Medical ORAL) Branch CALCIUM Yes Take by Univer s ORAL 4-30 mouth ity of 18:07: daily. [place] [address] Medical Branch DOCOSAHEXAN Yes 1000mg Take 1,000 Univers OIC 4-30 mg by ity of ACID/EPA 18:07: mouth [place] (FISH OIL 06 daily. Medical ORAL) Branch METHYLCELLU 0 Yes Univer s LOSE (FIBER 4-30 ity of THERAPY 18:07: [place] MISC) 06 Medical Branch DOCUSATE Yes [facility] SODIUM 4-30 mouth. ity of (COLACE 18:07: [place] ORAL) 06 Medical Branch vitamin C Yes 1000mg Take 1,000 Univers with derrell 4-30 mg by ity of hips 18:07: mouth [place] (VITAMIN C) 06 daily. Medica l 1,000 mg Branch tablet cholecalcif Yes 1000U Take 1,000 Univers edmar, 4-30 Units by ity of vitamin D3, 18:07: mouth [place] (VITAMIN 06 daily. Medical D3) 1,000 Branch unit tablet CRANBERRY Yes Take by [facility] ers FRUIT 4-30 mouth ity of EXTRACT 18:07: daily. [place] (CRANBERRY 06 Medical ORAL) Branch CALCIUM Yes Take by [facility] ORAL 4-30 mouth ity of 18:07: daily. [place] [address] Medical Branch DOCOSAHEXAN Yes 1000mg Take 1,000 Univers OIC 4-30 mg by ity of ACID/EPA 18:07: mouth [place] (FISH OIL 06 daily. Medical ORAL) Branch FOLIC ACID Yes Take by Uni vers ORAL 4-30 mouth ity of 18:07: daily. [place] [address] Medical Branch MULTIVIT Yes Take by [facility] &MINERALS/F 4-30 mouth. ity of ERROUS FUM 18:07: [place] ([place] [address] Medical VITAMIN Branch ORAL) FOLIC ACID Yes Take by Uni vers ORAL 4-30 mouth ity of 18:07: daily. [place] [address] Medical Branch MULTIVIT Yes Take by [facility] &MINERALS/F 4-30 mouth. ity of ERROUS FUM 18:07: [place] ([place] [address] Medical VITAMIN Branch ORAL) losartan 50 Yes [id number] 50mg Take 1 Univers mg tablet 4-28 tablet by ity o f 00:00: mouth 2 [place] 00 (two) Medical times Branch daily. losartan 50 Yes [id number] 50mg Take 1 Univers mg tablet 4-28 tablet by ity o f 00:00: mouth 2 [place] 00 (two) Medical times Branch daily. clotrimazol Yes [id number] Apply to Univers e-betametha 4-21 area(s) 2 ity of sone cream 00:00: (two) [place] 00 times Medical daily. Branch clotrimazol 0 Yes [id number] Apply to Univers e-betametha 4-21 area(s) 2 ity of sone cream 00:00: (two) [place] 00 times Medical daily. Branch ibuprofen 0 Yes [id number] 600mg Take 1 U nivers 600 mg 4-11 tablet by ity of tablet 00:00: mouth [place] 00 every 6 Medical (six) Branch hours as needed for Pain (scale 4-6). ibuprofen Yes [id number] 600mg Take 1 U nivers 600 mg 4-11 tablet by ity of tablet 00:00: mouth [place] 00 every 6 Medical (six) Branch hours as needed for Pain (scale 4-6). cyclobenzap 0 Yes [id number] TAKE 1 Univers rine 5 mg 3-16 TABLET BY ity o f tablet 00:00: MOUTH [place] 00 EVERY 8 Medical HOURS Branch NEEDED cyclobenzap 2020-0 Yes [id number] TAKE 1 Univers rine 5 mg 3-16 TABLET BY ity o f tablet 00:00: MOUTH [place] 00 EVERY 8 Medical HOURS Branch NEEDED pregabalin 2020-0 2020- No [id number] 150mg Take 1 Univers 150 mg 2-12 08-24 capsule by ity of capsule 00:00: 00:00 mouth 3 [place] 00 :00 (three) Medical times Branch daily. cephALEXin 0 Yes [id number] 1 tab 2x/d Univers 500 mg 1-21 ity of tablet 00:00: [place] 00 Medical Branch cephALEXin 2020-0 Yes [id number] 1 tab 2x/d Univers 500 mg 1-21 ity of tablet 00:00: [place] 00 Medical Branch citalopram 2019-09 Yes [id number] 40mg Take 1 U nivers 40 mg 2-28 tablet by ity of tablet 00:00: mouth [place] 00 daily. Medical Branch citalopram 2019-09 Yes [id number] 40mg Take 1 U nivers 40 mg 2-28 tablet by ity of tablet 00:00: mouth [place] 00 daily. Medical Branch econazole 2019-09 Yes Apply to Uni vers nitrate 1 % 1-30 area(s) 2 ity of cream 00:00: (two) [place] 00 times Medical daily. Branch econazole 2019-09 Yes Apply to Uni vers nitrate 1 % 1-30 area(s) 2 ity of cream 00:00: (two) [place] 00 times Medical daily. Branch proMETHazin 2019-09 Yes TAKE 1 Univ ers e 25 mg 0-22 TABLET BY ity of tablet 00:00: MOUTH [place] EVERY 6 Medical HOURS Branch NEEDED FOR NAUSEA proMETHazin 2019-09 Yes TAKE 1 Univ ers e 25 mg 0-22 TABLET BY ity of tablet 00:00: MOUTH [place] EVERY 6 Medical HOURS Branch NEEDED FOR NAUSEA omeprazole 2019-09 Yes 20mg Take 20 mg U nivers 20 mg 0-12 by mouth ity of capsule 00:00: daily. Medical Branch omeprazole 2019-09 Yes 20mg Take 20 mg U nivers 20 mg 0-12 by mouth ity of capsule 00:00: daily. Medical Branch albuterol Yes 2{puff} Inhale 2 U nivers (PROAIR 4-17 Puffs ity of HFA) 90 00:00: every 6 [place] mcg/actuati 00 (six) Medical on inhaler hours as Branc h needed for Wheezing or Shortness of Breath. albuterol Yes 2{puff} Inhale 2 U nivers (PROAIR 4-17 Puffs ity of HFA) 90 00:00: every 6 [place] mcg/actuati 00 (six) Medical on inhaler hours as Branc h needed for Wheezing or Shortness of Breath. Ginkgo 2019-0 Yes Univers [place] 120 1-16 ity of mg Tab 00:00: [place] Medical Branch Ginkgo 2019-0 Yes Univers [place] 120 1-16 ity of mg Tab 00:00: [place] Medical Branch FERROUS 2017- Yes [id number] TAKE ONE Uni vers SULFATE 325 8-13 TABLET BY ity of mg (65 mg 00:00: MOUTH [place] iron) 00 THREE Medical tablet TIMES Branch DAILY WITH MEALS FERROUS Yes [id number] TAKE ONE Uni vers SULFATE 325 8-13 TABLET BY ity of mg (65 mg 00:00: MOUTH [place] iron) 00 THREE Medical tablet TIMES Branch DAILY WITH MEALS coQ10, Yes [id number] 1{capsu Take 1 U nivers ubiquinol, 1-16 le} capsule by ity of 100 mg Cap 00:00: mouth [place] 00 daily. [facility] coQ10, 2018-0 Yes [id number] 1{capsu Take 1 U nivers ubiquinol, 1-16 le} capsule by ity of 100 mg Cap 00:00: mouth [place] 00 daily. [facility] loratadine 2017-0 Yes [id number] 10mg Take 1 Univers 10 mg 1-23 tablet by ity of tablet 00:00: mouth [place] 00 daily. [facility] loratadine 2017-0 Yes [id number] 10mg Take 1 Univers 10 mg 1-23 tablet by ity of tablet 00:00: mouth [place] 00 daily. [facility] Immunizations Ordered Immunization Filled Immunization Date Status Commen ts Source Name Name SARS-COV-2 COVID-19 2020-12-13 Completed Unive rsity of PFIZER VACCINE 00:00:00 [facility] SARS-COV-2 COVID-19 2020-12-13 Completed Unive rsity of PFIZER VACCINE 00:00:00 [facility] SARS-COV-2 COVID-19 2020-11-22 Completed Unive rsity of PFIZER VACCINE 00:00:00 [facility] SARS-COV-2 COVID-19 2020-11-22 Completed Unive rsity of PFIZER VACCINE 00:00:00 [facility] Influenza Virus 2020-05-27 Completed Universit y of Vaccine Recomb Quad 00:00:00 [facility] IM, Preserv and ABX Branc h Free 18-64 YRS Influenza Virus 2020-05-27 Completed Universit y of Vaccine Recomb Quad 00:00:00 [facility] IM, Preserv and ABX Branc h Free 18-64 YRS Pneumococcal 2019-08-10 Completed University o f Polysaccharide, 00:00:00 [facility] ical PPSV23 (PNEUMOVAX) [place] TDAP (ADACEL) VACCINE 2019-08-10 Completed Uni versity of 00:00:00 [facility] TDAP 2019-08-10 Completed University of 00:00:00 [facility] Pneumococcal 2019-08-10 Completed University o f Polysaccharide, 00:00:00 [facility] PPSV23 (PNEUMOVAX) [place] TDAP (ADACEL) VACCINE 2019-08-10 Completed Uni versity of 00:00:00 [facility] TDAP 2019-08-10 Completed University of 00:00:00 [facility] Influenza Virus 2019-07-04 Completed Universit y of Vaccine 00:00:00 [facility] Influenza Virus 2019-07-04 Completed Universit y of Vaccine Recomb Quad 00:00:00 [facility] IM, Preserv and ABX Branc h Free 18-64 YRS Influenza Virus 2019-07-04 Completed Universit y of Vaccine 00:00:00 [facility] Influenza Virus 2019-07-04 Completed Universit y of Vaccine Recomb Quad 00:00:00 [facility] IM, Preserv and ABX Branc h Free 18-64 YRS Influenza Virus 2018-06-30 Completed Universit y of Vaccine Quad IM 3+ 00:00:00 [facility] Influenza Virus 2018-06-30 Completed Universit y of Vaccine Quad IM 3+ 00:00:00 [facility] Influenza Virus 2017-06-15 Completed Universit y of Vaccine Quad ID [id number] 00:00:00 [facility] Influenza Virus 2017-06-15 Completed Universit y of Vaccine Quad ID [id number] 00:00:00 [facility] Influenza Virus 2016-08-05 Completed Universit y of Vaccine Quad IM 00:00:00 [place] [facility] Multi-dose 6+ [facility] Branch Influenza Virus 2016-08-05 Completed Universit y of Vaccine Quad IM 00:00:00 [place] [facility] Multi-dose 6+ [facility] Branch Pneumococcal 13 2016-03-07 Completed Universit y of Conjugate, PCV13 00:00:00 [facility] dical (Prevnar 13) Branch Meningococcal B, OMV 2016-03-07 Completed Univ ersity of 00:00:00 [facility] Pneumococcal 13 2016-03-07 Completed Universit y of Conjugate, PCV13 00:00:00 [facility] dical (Prevnar 13) Branch Meningococcal B, OMV 2016-03-07 Completed Univ ersity of 00:00:00 [facility] Heamophilus Influenza 2015-11-13 Completed Uni versity of B 00:00:00 [facility] Heamophilus Influenza 2015-11-13 Completed Uni versity of B 00:00:00 [facility] Meningococcal 2015-11-12 Completed University of Polysaccharide 00:00:00 [facility] cipriano (groups A, C, Y and Branc h W-135) conjugate vaccine (MCV4P) Meningococcal 2015-11-12 Completed University of Polysaccharide 00:00:00 [facility] (groups A, C, Y and Branc h W-135) conjugate vaccine (MCV4P) TDAP 2015-10-31 Completed University 00:00:00 [facility] TDAP 2015-10-31 Completed University of 00:00:00 [facility] Pneumococcal 2014-04-01 Completed [place] o f Polysaccharide, 00:00:00 [facility] ical PPSV23 (PNEUMOVAX) Branch Pneumococcal 2014-04-01 Completed [place] o f Polysaccharide, 00:00:00 [facility] ical PPSV23 (PNEUMOVAX) [place] Vital Signs Vital Name Observation Time Observation Value Comments Source Systolic blood 2021-05-25 23:20:00 161 mm[Hg] Univer sity of pressure [facility] Diastolic blood 2021-05-25 23:20:00 124 mm[Hg] Unive rsity of [facility] Heart rate 2021-05-25 23:20:00 111 /min [facility] Body temperature 2021-05-25 23:20:00 37.17 Melissa [facility] Respiratory rate 2021-05-25 23:20:00 26 /min [facility] Body weight 2021-05-25 23:20:00 102.059 kg [facility] BMI 2021-05-25 23:20:00 41.15 kg/m2 [facility] Oxygen saturation in 2021-05-25 23:20:00 98 /min [facility] Arterial blood by [facility] Pulse oximetry [place] Procedures Procedure Date / Time Performed Performing Clinician [facility] e NOTICE OF PRIVACY 2021-05-25 23:19:17 Doctor Unassigned, No Univ [facility] Name [facility] CONSENT/REFUSAL FOR 2021-05-25 23:13:07 Doctor Unassigned, No [facility] AND Name Medical Branch TREATMENT Encounters Start End Encounter Admission Attending Care Care Encounter Source Date/Time Date/Time Type Type Clinicians Facility Department ID 2021-05-25 2021-05-25 Emergency [facility] [id number] [facility] 18:22:00 20:23:00 Laureen De León [id number] Christine [id number] [facility] [id number] [facility] 084 Branch 2021-05-19 2021-05-19 Refill Josemanuel [facility] [id number] Univers 00:00:00 00:00:00 [facility] A [facility] [id number] ity of [place] [id number] [facility] as Professio [phone] Ri dicmn nal [address] 2021-02-25 2021-02-25 Telephone Gomez [facility] [id number] 00:00:00 00:00:00 Ricardo De León [id number] [place] [id number] Professio [phone] [facility] 059 [facility] Results This patient has no known results.
[2021-05-26 00:20] LABS: Albumin 4.1 g/dL (3.4-5.0); Bilirubin Direct 0.2 mg/dL (0-0.2); Bilirubin Total 0.5 mg/dL (0.2-1.0); Potassium 3.9 mmol/L (3.5-5.1); Protein, Total 7.6 g/dL (6.4-8.2)
[2021-05-26 00:24] LABS: Basophils % 0.8 % (0-1.3); Lymphocytes % 13.9 % (15.3-44.8); MPV 9.3 fL (7.6-11.3); RBC Red Blood Cell Count 4.29 M/uL (3.86-4.86)
[2021-05-26] MEDS ORDERED: NA CHLORIDE 0.9% 1,000 ML ONE (00:37)
[2021-05-26] MEDS ORDERED: FLEET ENEMA ADULT PR ONE (00:39)
--- NOTE | 2021-05-26 01:37 | EDPHYS ---
Physician Documentation [facility] Name: Linda Rahman Age: 45 yrs Sex: Female : 1975 Arrival Date: 05/25/2021 Time: 23:35 Bed 13 Private MD: ED Physician Paris Feldman HPI: 05/26 00:28 This 45 yrs old Female presents to ER via EMS with complaints of Abdominal ma2 Pain, Constipation. 00:28 The patient presents with abdominal pain. Onset: The symptoms/episode began/occurred ma2 gradually, 1 day(s) ago. Associated signs and symptoms: Pertinent positives: constipation, Pertinent negatives: anorexia, diarrhea, fever, vomiting. Severity of pain: At its worst the pain was moderate in the emergency department the pain is unchanged. The patient has experienced similar episodes in the past. Historical: - Allergies: 05/25 23:37 Amoxicillin; ss 23:37 Benadryl; ss 23:37 Benzonatate; ss 23:37 Codeine; ss 23:37 Demerol; ss 23:37 Geodon; ss 23:37 Ibuprofen; ss 23:37 Lorazepam; ss 23:37 Meclizine; ss 23:37 Tessalon Perles; ss - PMHx: 23:37 Anemia; High Cholesterol; Hypertension; neuropathy; ss - Immunization history:: Client reports receiving the 2nd dose of the Covid vaccine. - Social history:: Smoking status: Patient denies any tobacco usage or history of. Patient/guardian denies using alcohol, street drugs, The patient lives with family. - Family history:: not pertinent. ROS: 05/26 00:28 Constitutional: Negative for fever, chills, and weight loss. ma2 All other systems are negative. Exam: 00:28 Constitutional: This is a well developed, well nourished patient who is awake, alert, ma2 and in no acute distress. Head/Face: Normocephalic, atraumatic. Eyes: Pupils equal round and reactive to light, extra-ocular motions intact. Lids and lashes normal. Conjunctiva and sclera are non-icteric and not injected. Cornea within normal limits. Periorbital areas with no swelling, redness, or edema. ENT: Nares patent. No nasal discharge, no septal abnormalities noted. Tympanic membranes are normal and external auditory canals are clear. Oropharynx with no redness, swelling, or masses, exudates, or evidence of obstruction, uvula midline. Mucous membranes moist. Neck: Trachea midline, no thyromegaly or masses palpated, and no cervical lymphadenopathy. Supple, full range of motion without nuchal rigidity, or vertebral point tenderness. No Meningismus. Chest/axilla: Normal chest wall appearance and motion. Nontender with no deformity. No lesions are appreciated. Cardiovascular: Regular rate and rhythm with a normal S1 and S2. No gallops, murmurs, or rubs. Normal PMI, no JVD. No pulse deficits. Respiratory: Lungs have equal breath sounds bilaterally, clear to auscultation and percussion. No rales, rhonchi or wheezes noted. No increased work of breathing, no retractions or nasal flaring. Abdomen/GI: Soft, non-tender, with normal bowel sounds. No distension or tympany. No guarding or rebound. No evidence of tenderness throughout. Skin: Warm, dry with normal turgor. Normal color with no rashes, no lesions, and no evidence of cellulitis. MS/ Extremity: Pulses equal, no cyanosis. Neurovascular intact. Full, normal range of motion. Neuro: Awake and alert, GCS 15, oriented to person, place, time, and situation. Cranial nerves II-XII grossly intact. Motor strength 5/5 in all extremities. Sensory grossly intact. Cerebellar exam normal. Normal gait. Vital Signs: 05/25 23:35 BP 130 / 99; Pulse 115; Resp 20; Temp 97.2(TE); Pulse Ox 100% on R/A; Weight 101.15 kg; ss Height 5 ft. 2 in. (157.48 cm); Pain 10/10; 05/26 01:29 BP 136 / 89; Pulse 108; Resp 18; Pulse Ox 98% ; ms4 05/25 23:35 Body Mass Index 40.79 (101.15 kg, 157.48 cm) ss MDM: 05/25 23:35 Patient medically screened. ma2 05/26 00:28 Differential diagnosis: gastritis, Irritable bowel syndrome, urinary tract infection. ma2 Data reviewed: vital signs, nurses notes. 01:36 Counseling: I had a detailed discussion with the patient and/or guardian regarding: the ma2 historical points, exam findings, and any diagnostic results supporting the discharge/admit diagnosis, the presence of at least one elevated blood pressure reading (>120/80) during this emergency department visit, the need for outpatient follow up. Response to treatment: the patient's symptoms have markedly improved after treatment. 05/25 23:35 Order name: Basic Metabolic Panel; Complete Time: 00:30 or2 05/25 23:35 Order name: CBC with Diff; Complete Time: 00:30 or2 05/25 23:35 Order name: Hepatic Function; Complete Time: 00:30 or2 05/25 23:35 Order name: Lipase; Complete Time: 00:30 [facility] 05/25 23:38 Order name: CT Abd/Pelvis - IV Contrast Only or2 05/25 23:35 Order name: IV Saline Lock; Complete Time: 23:37 or2 05/25 23:35 Order name: Labs collected and sent; Complete Time: 23:37 or2 05/25 23:35 Order name: Urine Dipstick-Ancillary (obtain specimen) ma2 Administered Medications: 01:24 Drug: NS 0.9% 1000 ml Route: IV; Rate: 1 bolus; Site: right antecubital; ms4 01:24 Drug: Fleet Enema (sodium phosphate) 133 ml Route: LA; ms4 Disposition Summary: 05/26/21 01:36 Discharge Ordered Location: Home ma2 Condition: Stable ma2 Diagnosis - Constipation ma2 Followup: ma2 - With: Private Physician - When: Tomorrow - Reason: If symptoms return, Continuance of care Discharge Instructions: - Discharge Summary Sheet ma2 - Constipation, Adult, [id number] ma2 Forms: - Medication Reconciliation Form ma2 - Thank You Letter ma2 - Antibiotic Education ma2 - Prescription Opioid Use ma2 Prescriptions: - Colace 100 mg Oral Tablet - take 1 tablet by ORAL route every 12 hours; 14 tablet; Refills: 0, Product ma2 Selection Permitted Signatures: Dispatcher [employer] Shwetha Barnhart RN RN Paris Feldman MD MD ma2 Lena Foster RN RN ms4
--- NOTE | 2021-05-26 01:37 | ER ---
Nurse's Notes [facility] Name: Linda Rahman Age: 45 yrs Sex: Female : 1975 Arrival Date: 05/25/2021 Time: 23:35 Bed 13 Private MD: Diagnosis: Constipation Presentation: 05/25 23:35 Chief complaint: EMS states: LLQ pain that began after taking two gas tablets this ss evening. Pt reports she has been gassy and constipated the past few days. Coronavirus screen: Client denies travel out of the [place] in the last 14 days. Ebola Screen: Patient denies exposure to infectious person. Patient denies travel to an Ebola-affected area in the 21 days before illness onset. Initial Sepsis Screen: Does the patient meet any 2 criteria? No. Patient's initial sepsis screen is negative. Does the patient have a suspected source of infection? No. Patient's initial sepsis screen is negative. Risk Assessment: Do you want to hurt yourself or someone else? Patient reports no desire to harm self or others. Onset of symptoms was May 25, 2021. 23:35 Method Of Arrival: EMS: [facility] ss 23:35 Acuity: [place] 3 ss Historical: - Allergies: 23:37 Amoxicillin; ss 23:37 Benadryl; ss 23:37 Benzonatate; ss 23:37 Codeine; ss 23:37 Demerol; ss 23:37 Geodon; ss 23:37 Ibuprofen; ss 23:37 Lorazepam; ss 23:37 Meclizine; ss 23:37 Tessalon Perles; ss - PMHx: 23:37 Anemia; High Cholesterol; Hypertension; neuropathy; ss - Immunization history:: Client reports receiving the 2nd dose of the Covid vaccine. - Social history:: Smoking status: Patient denies any tobacco usage or history of. Patient/guardian denies using alcohol, street drugs, The patient lives with family. - Family history:: not pertinent. Screenin:38 Abuse screen: Denies threats or abuse. Denies injuries from another. Nutritional ms4 screening: No deficits noted. Tuberculosis screening: No symptoms or risk factors identified. Fall Risk None identified. Assessment: 23:37 Reassessment: Patient appears in no apparent distress at this time. No changes from ms4 previously documented assessment. General: Appears uncomfortable, Behavior is calm, cooperative. Pain: Complains of pain in LLQ. Cardiovascular: No deficits noted. Respiratory: No deficits noted. GI: Abdomen is obese, Bowel sounds present X 4 quads. Abd is soft Abdomen is tender to palpation Reports lower abdominal pain, constipation, cramping, gaseousness. 05/26 01:29 Reassessment: patient was not able to retain enema for longer than 5 minutes. patient ms4 produced very small bowel movement. patient reports she feels much better. MD notified. Vital Signs: 05/25 23:35 BP 130 / 99; Pulse 115; Resp 20; Temp 97.2(TE); Pulse Ox 100% on R/A; Weight 101.15 kg; ss Height 5 ft. 2 in. (157.48 cm); Pain 10/10; 05/26 01:29 BP 136 / 89; Pulse 108; Resp 18; Pulse Ox 98% ; ms4 05/25 23:35 Body Mass Index 40.79 (101.15 kg, 157.48 cm) ED Course: 05/25 23:35 Patient arrived in ED. ss 23:35 Paris Feldman MD is Attending Physician. ma2 23:37 Triage completed. ss 23:37 Arm band placed on right wrist. ss 23:38 No provider procedures requiring assistance completed. ms4 05/26 00:55 CT Abd/Pelvis - IV Contrast Only In Process Unspecified. EDMS 01:50 IV discontinued, intact, bleeding controlled. ms4 01:51 Patient has correct armband on for positive identification. ms4 Administered Medications: 01:24 Drug: NS 0.9% 1000 ml Route: IV; Rate: 1 bolus; Site: right antecubital; ms4 01:24 Drug: Fleet Enema (sodium phosphate) 133 ml Route: [place]; ms4 Outcome: 01:36 Discharge ordered by . ma2 01:50 Discharged to home ambulatory. ms4 01:50 Condition: stable 01:50 Discharge instructions given to patient, Instructed on discharge instructions, follow up and referral plans. Demonstrated understanding of instructions, follow-up care, medications, Prescriptions given X 1. 01:51 Patient left the ED. ms4 Signatures: Dispatcher [employer] EDKY Shwetha Parisi RN RN Paris Feldman MD MD ma2 Stroud Lena, ABDULLAHI RN ms4
[2021-05-26 01:55] VITALS: TEMP 97.2
[2021-05-26 01:56] VITALS: BP 136/89; O2SAT 98
--- NOTE | 2021-05-26 13:50 | RAD REPORT ---
EXAM DESCRIPTION: CT - Abdomen Pelvis W Contrast - 05/26/2021 6:26 am CLINICAL HISTORY: ABD PAIN COMPARISON: 09/02/2017 TECHNIQUE: CT of the abdomen and pelvis performed following IV administration of iodinated contras t. This exam was performed according to our departmental dose-optimization program, which includes au tomated exposure control, adjustment of the mA and/or kV according to patient size and/or use of iter ative reconstruction technique. Motion artifact. FINDINGS: Lung Bases: Minimal bibasilar dependent atelectasis. Bones: No destructive bone lesions identified. Abdomen: Liver: Hepatomegaly and diffusely decreased density. Gallbladder: Prior cholecystectomy. Spleen, Pancreas, and Adrenal Glands: Splenomegaly. Pancreas and adrenal glands are unremarkable. Kidneys: No hydronephrosis or obstructing calculus. Vasculature: The aorta and IVC have normal caliber and position. The portal vein is patent. The pro ximal visceral and renal arteries are patent. Stomach: The stomach and duodenum have normal course. Other: No free intraperitoneal air. No free fluid or lymphadenopathy. Pelvis: Bladder: Urinary bladder is unremarkable. Bowel: No dilated loops of large or small bowel. Appendix: Normal appendix. Pelvis: Bilateral ovarian cysts, largest measuring 3.9 cm. IMPRESSION: 1. No acute inflammatory or obstructive process identified. 2. Hepatomegaly and hepatic steatosis. 3. Splenomegaly. 4. Bilateral ovarian cysts, largest measuring 3.9 cm. No follow-up imaging is recommended. Referenc e: J Am Thelma Radiol 2013;[id number] Electronically signed by: Aleks Daugherty 05/26/2021 1:16 AM CDT Due to temporary technical issues with the PACS/Fluency reporting system, reports are being signed by the in house radiologists without review as a courtesy to insure prompt reporting. The interpreting radiologist is fully responsible for the content of the report.
== END 2021-05-26 01:51 | disposition home or self-care (01) ==
LOC: ER 23:30
DX: K59.00 Constipation, unspecified (principal); I10 Essential (primary) hypertension; Z88.1 Allergy status to other antibiotic agents; Z88.5 Allergy status to narcotic agent; Z88.6 Allergy status to analgesic agent; Z88.8 Allergy status to other drugs, medicaments and biological substances
CPT/HCPCS: 85025; 80048; 36415; 80076; 83690; 74177; Q9967; J7030; 99284

== ENCOUNTER 2021-06-23 18:10 | Emergency (ER) | payer OTHER ==
--- NOTE | 2021-06-23 20:02 | RAD REPORT ---
EXAM DESCRIPTION: RAD - Shoulder Right 2 View - 06/23/2021 7:54 pm CLINICAL HISTORY: Right shoulder pain FINDINGS: No fracture or dislocation is seen. No significant bone or joint abnormality seen
--- NOTE | 2021-06-23 20:04 | EDPHYS ---
Physician Documentation [facility] Name: Linda Rahman Age: 45 yrs Sex: Female : 1975 Arrival Date: 06/23/2021 Time: 18:13 Bed 25 Private MD: ED Physician Young Hernandez HPI: 06/23 20:01 This 45 yrs old Female presents to ER via Ambulatory with complaints of jr8 Shoulder Pain. 20:01 right shoulder. Onset: The symptoms/episode began/occurred acutely, today. Modifying jr8 factors: the symptoms are alleviated by remaining still, The symptoms are aggravated by movement. Associated signs and symptoms: The patient has no apparent associated signs or symptoms. The patient has not experienced similar symptoms in the past. The patient has not recently seen a physician. Patient stated that she was cleaning her dog and twisted her right shoulder causing immediate pain and felt a pop. Pain since then. Historical: - PMHx: 18:25 Diabetes mellitus; ch5 - Immunization history:: Adult Immunizations up to date. - Social history:: Smoking status: Patient denies any tobacco usage or history of. ROS: 20:01 Eyes: Negative for injury, pain, redness, and discharge, ENT: Negative for injury, jr8 pain, and discharge, Neck: Negative for injury, pain, and swelling, Cardiovascular: Negative for chest pain, palpitations, and edema, Respiratory: Negative for shortness of breath, cough, wheezing, and pleuritic chest pain, Abdomen/GI: Negative for abdominal pain, nausea, vomiting, diarrhea, and constipation, Back: Negative for injury and pain, Skin: Negative for injury, rash, and discoloration, Neuro: Negative for headache, weakness, numbness, tingling, and seizure. 20:01 MS/extremity: Positive for decreased range of motion, pain, tenderness, of the right shoulder. Exam: 20:01 Constitutional: This is a well developed, well nourished patient who is awake, alert, jr8 and in no acute distress. Neck: Trachea midline, no thyromegaly or masses palpated, and no cervical lymphadenopathy. Supple, full range of motion without nuchal rigidity, or vertebral point tenderness. No Meningismus. Chest/axilla: Normal chest wall appearance and motion. Nontender with no deformity. No lesions are appreciated. Cardiovascular: Regular rate and rhythm with a normal S1 and S2. No gallops, murmurs, or rubs. Normal PMI, no JVD. No pulse deficits. Respiratory: Lungs have equal breath sounds bilaterally, clear to auscultation and percussion. No rales, rhonchi or wheezes noted. No increased work of breathing, no retractions or nasal flaring. Back: No spinal tenderness. No costovertebral tenderness. Full range of motion. Skin: Warm, dry with normal turgor. Normal color with no rashes, no lesions, and no evidence of cellulitis. Neuro: Awake and alert, GCS 15, oriented to person, place, time, and situation. Cranial nerves II-XII grossly intact. Motor strength 5/5 in all extremities. Sensory grossly intact. 20:01 Musculoskeletal/extremity: Extremities: grossly normal except: noted in the right shoulder: Patient has no evident external signs of trauma. No step-offs noted to the anterior or lateral shoulder. Moderate tenderness to palpation of the lateral shoulder and with range of motion but has full range of motion. Normal sensation present. 3+ radial pulses on affected extremity noted. Remainder of extremities unremarkable.. Vital Signs: 18:21 BP 158 / 100; Pulse 114; Resp 20; Temp 98; Pulse Ox 100% on R/A; Weight 92.08 kg; ch5 Height 5 ft. 2 in. (157.48 cm); Pain 9/10; 18:36 BP 151 / 92; Pulse 104; Resp 20; Temp 98; Pulse Ox 100% on R/A; aj2 20:00 BP 145 / 88; Pulse 98; Resp 18; Pulse Ox 100% on R/A; df1 18:21 Body Mass Index 37.13 (92.08 kg, 157.48 cm) ch5 MDM: 18:35 Patient medically screened. jr8 20:01 Data reviewed: vital signs, nurses notes, radiologic studies, plain films. Data jr8 interpreted: Pulse oximetry: on room air is 100 %. Interpretation: normal. Counseling: I had a detailed discussion with the patient and/or guardian regarding: the historical points, exam findings, and any diagnostic results supporting the discharge/admit diagnosis, radiology results, the need for outpatient follow up, a orthopedic surgeon, to return to the emergency department if symptoms worsen or persist or if there are any questions or concerns that arise at home. 06/23 18:44 Order name: XRAY Shoulder RIGHT 2 view; Complete Time: 20:04 jr8 Administered Medications: 20:36 Drug: HYDROcodone-acetaminophen 5 mg-325 mg 1 tabs Route: PO; df1 Disposition Summary: 06/23/21 20:04 Discharge Ordered Location: Home jr8 Problem: new jr8 Symptoms: have improved jr8 Condition: Stable jr8 Diagnosis - Strain of muscle(s) and tendon(s) of the rotator cuff of right shoulder jr8 Followup: jr8 - With: Kev Ocasio MD - When: 1 week - Reason: If symptoms return, Recheck today's complaints, Continuance of care, Re-evaluation by your physician Discharge Instructions: - Discharge Summary Sheet jr8 - Shoulder Pain jr8 Forms: - Medication Reconciliation Form jr8 - Thank You Letter jr8 - Antibiotic Education jr8 - Prescription Opioid Use jr8 Addendum: 06/25/2021 10:58 Co-signature as Attending Physician, Young Hernandez MD I agree with the assessment and c gan plan of care. Signatures: Dispatcher [employer] EDYoung Baxter MD MD cha Roszak, Josh, PA PA jr8 Aleks Parson RN RN ch5 Suzanne Parker df1 Corrections: (The following items were deleted from the chart) 06/23 18:27 18:25 PMHx: Hypertension; ch5 ch5 18:27 18:25 PMHx: High Cholesterol; ch5 ch5 18:27 18:25 PMHx: Anemia; ch5 ch5 18:27 18:25 PMHx: neuropathy; ch5 ch5
--- NOTE | 2021-06-23 20:04 | ER ---
Nurse's Notes [facility] Name: Linda Rahman Age: 45 yrs Sex: Female : 1975 Arrival Date: 06/23/2021 Time: 18:13 Bed 25 Private MD: Diagnosis: Strain of muscle(s) and tendon(s) of the rotator cuff of right shoulder Presentation: 06/23 18:21 Chief complaint: Patient states: Pt was cleaning last and shoulder started to hurt. ch5 Unable to tell if there was an injury. Hurt all day today. Coronavirus screen: Vaccine status: Patient reports receiving the 2nd dose of the covid vaccine. Ebola Screen: Patient negative for fever greater than or equal to 101.5 degrees Fahrenheit, and additional compatible Ebola Virus Disease symptoms Patient denies exposure to infectious person. Patient denies travel to an Ebola-affected area in the 21 days before illness onset. Initial Sepsis Screen: Does the patient meet any 2 criteria? No. Patient's initial sepsis screen is negative. Does the patient have a suspected source of infection? No. Patient's initial sepsis screen is negative. Risk Assessment: Do you want to hurt yourself or someone else? Patient reports no desire to harm self or others. Onset of symptoms was June 22, 2021. Care prior to arrival: Took motrin at 0900 this am and Aleve at 1500. 18:21 Method Of Arrival: Ambulatory [facility] 18:21 Acuity: HOLLEY 4 ch5 Triage Assessment: 18:25 General: Appears in no apparent distress. Behavior is cooperative. Pain: Denies pain. ch5 Complains of pain in posterior aspect of right shoulder. Historical: - PMHx: 18:25 Diabetes mellitus; ch5 - Immunization history:: Adult Immunizations up to date. - Social history:: Smoking status: Patient denies any tobacco usage or history of. Screenin:36 Abuse screen: Denies threats or abuse. Denies injuries from another. Nutritional aj2 screening: No deficits noted. Tuberculosis screening: No symptoms or risk factors identified. Fall Risk None identified. Assessment: 18:36 General: Appears uncomfortable, Behavior is calm, cooperative. Pain: Complains of pain aj2 in anterior aspect of right shoulder Pain radiates to right bicep. Pain: Pain currently is 10 out of 10 on a pain scale. Quality of pain is described as sharp, Pain began 1 day ago. Is continuous, Alleviated by nothing. Aggravated by increased activity, repositioning, weight bearing. 18:36 Reassessment: Report I was trying to hold my dog down and give him a bath when I hurt aj2 my arm" onset yesterday.. Vital Signs: 18:21 BP 158 / 100; Pulse 114; Resp 20; Temp 98; Pulse Ox 100% on R/A; Weight 92.08 kg; ch5 Height 5 ft. 2 in. (157.48 cm); Pain 9/10; 18:36 BP 151 / 92; Pulse 104; Resp 20; Temp 98; Pulse Ox 100% on R/A; aj2 20:00 BP 145 / 88; Pulse 98; Resp 18; Pulse Ox 100% on R/A; df1 18:21 Body Mass Index 37.13 (92.08 kg, 157.48 cm) 5 ED Course: 18:13 Patient arrived in ED. ds1 18:25 Triage completed. ch5 18:27 Arm band placed on right wrist. ch5 18:33 Pasha Valles is Primary Nurse. aj2 18:35 Brian Ledesma PA is PHCP. jr8 18:35 Young Hernandez MD is Attending Physician. jr8 18:36 Appears tearful. aj2 18:36 Patient has correct armband on for positive identification. aj2 18:36 No provider procedures requiring assistance completed. aj2 19:54 XRAY Shoulder RIGHT 2 view In Process Unspecified. EDMS 20:03 Kev Ocasio MD is Referral Physician. jr8 20:37 Patient did not have IV access during this emergency room visit. df1 Administered Medications: 20:36 Drug: HYDROcodone-acetaminophen 5 mg-325 mg 1 tabs Route: PO; df1 Outcome: 20:04 Discharge ordered by . jr8 20:37 Discharged to home df1 20:37 Condition: good 20:37 Discharge instructions given to patient, family, Instructed on discharge instructions, follow up and referral plans. Demonstrated understanding of instructions. 20:37 Patient left the ED. df1 Signatures: Dispatcher [employer] EDNJ Nath, Sapna ds1 Brian Ledesma PA PA jrPasha Wood aj2 Aleks Parson RN RN ch5 Suzanne Parker df1 Corrections: (The following items were deleted from the chart) 18:27 18:25 PMHx: Hypertension; ch5 ch5 18:27 18:25 PMHx: High Cholesterol; ch5 ch5 18:27 18:25 PMHx: Anemia; ch5 ch5 18:27 18:25 PMHx: neuropathy; ch5 ch5
[2021-06-23 20:54] VITALS: TEMP 98; O2SAT 100
[2021-06-23] MEDS ORDERED: HYDROCODONE/APAP 5/325 MG TAB ONE (20:55)
[2021-06-23 20:57] VITALS: BP 145/88
== END 2021-06-23 20:37 | disposition home or self-care (01) ==
LOC: ER 18:10
DX: S46.011A Strain of muscle(s) and tendon(s) of the rotator cuff of right shoulder, initial encounter (principal); X50.1XXA Overexertion from prolonged static or awkward postures, initial encounter; Y93.89 Activity, other specified; E11.9 Type 2 diabetes mellitus without complications
CPT/HCPCS: 99283

== ENCOUNTER 2021-06-25 11:02 | Emergency (ER) | payer OTHER ==
[2012-02-23 15:30] VITALS: BP 116/73
--- NOTE | 2021-06-25 11:50 | ER ---
Nurse's Notes [facility] Name: Linda Rahman Age: 45 yrs Sex: Female : 1975 Arrival Date: 06/25/2021 Time: 11:04 Bed Waiting Private MD: Diagnosis: Assessment: 06/25 11:47 Reassessment: Pt called from lobby, no answer. Registration stated pt left stating was vg1 going to go see PCP. ED Course: 11:04 Patient arrived in ED. rg4 Administered Medications: No medications were administered Outcome: 11:49 Patient left the ED. vg1 Signatures: Antonette Blum rg4 Carole Blum, RN RN vg1
== END 2021-06-25 11:49 | disposition left against medical advice (07) ==
LOC: ER 11:02
DX: Z02.9 Encounter for administrative examinations, unspecified (principal)

== ENCOUNTER 2021-06-25 15:20 | Emergency (ER) | payer OTHER ==
[2021-06-25 15:58] LABS: Absolute Lymphocytes (CBC) 1.4 K/uL (0.7-4.9); Basophils % 0.9 % (0-1.3); Lymphocytes % 15.5 % (15.3-44.8); MPV 9.2 fL (7.6-11.3); RBC Red Blood Cell Count 4.87 M/uL (3.86-4.86)
[2021-06-25 15:59] LABS: Urine Blood Trace-intact (Negative); Urine Glucose Negative (Negative); Urine Protein 1+ (Negative)
[2021-06-25 16:15] LABS: Albumin 4.7 g/dL (3.4-5.0); Bilirubin Direct 0.3 mg/dL (0-0.2); Potassium 3.8 mmol/L (3.5-5.1); Protein, Total 8.4 g/dL (6.4-8.2)
[2021-06-25 16:27] LABS: Urine Bacteria LOADED /HPF (<20); Urine RBC NONE SEEN /HPF (NONE SEEN)
[2021-06-25] MEDS ORDERED: MORPHINE 4 MG/ML SYR ONE (16:28)
[2021-06-25] MEDS ORDERED: ONDANSETRON 4 MG/2 ML VIAL ONE (16:29)
[2021-06-25] MEDS ORDERED: NA CHLORIDE 0.9% 1,000 ML ONE (16:38)
--- NOTE | 2021-06-25 17:09 | RAD REPORT ---
EXAM DESCRIPTION: CT - Abdomen Pelvis W Contrast - 06/25/2021 4:42 pm CLINICAL HISTORY: Abdominal pain COMPARISON: April 2021 TECHNIQUE: Computed axial tomography of the abdomen pelvis was obtained. 100 cc Isovue-300 was admin istered intravenously. Oral contrast was not requested which limits evaluation of bowel. All CT scans are performed using dose optimization technique as appropriate and may include automated exposure control or mA/KV adjustment according to patient size. FINDINGS: The caudate and left lobes of liver are prominent which may indicate chronic disease. Cholecystectomy The pancreas, adrenals and kidneys unremarkable. Spleen measures 17 centimeters. A few of the images are degraded by patient motion artifact 5.4 centimeter mass abuts the left aspect of the uterus unchanged from from prior exam probably subse bogdan fibroid. IMPRESSION: Cirrhosis is suspected. Moderate splenomegaly 5.4 centimeter mass abuts the left aspect of the uterus unchanged from from prior exam probably subse bogdan fibroid. It is recommended that the patient have a nonemergent pelvic ultrasound for further ev aluation
[2021-06-25] MEDS ORDERED: CEFTRIAXONE 1000 MG/VIAL ONE (17:24)
--- NOTE | 2021-06-25 17:54 | ER ---
Nurse's Notes [facility] Name: Linda Rahman Age: 45 yrs Sex: Female : 1975 Arrival Date: 06/25/2021 Time: 15:22 Bed 17 Private MD: Diagnosis: UTI/ Urinary tract infection, site not specified Presentation: 06/25 15:29 Chief complaint: Patient states: she was sent from her PCP's office for lower right ap3 quadrant pain that began this morning. patient states her pain is 10/10. Coronavirus screen: At this time, the client does not indicate any symptoms associated with coronavirus-19. Ebola Screen: No symptoms or risks identified at this time. Initial Sepsis Screen: Does the patient meet any 2 criteria? No. Patient's initial sepsis screen is negative. Does the patient have a suspected source of infection? No. Patient's initial sepsis screen is negative. Risk Assessment: Do you want to hurt yourself or someone else? Patient reports no desire to harm self or others. Onset of symptoms was June 25, 2021. 15:29 Method Of Arrival: Ambulatory ap3 15:29 Acuity: HOLLEY 3 ap3 Triage Assessment: 15:32 General: Appears uncomfortable, Behavior is restless. Pain: Complains of pain in right ap3 lower quadrant Pain currently is 10 out of 10 on a pain scale. Pain began this morning. EENT: No signs and/or symptoms were reported regarding the EENT system. Neuro: Level of Consciousness is awake, alert, obeys commands, Oriented to person, place, time, situation, Speech is normal. Cardiovascular: Patient's skin is warm and dry. Respiratory: Airway is patent Respiratory effort is even, unlabored, Respiratory pattern is regular, symmetrical. GI: Parent/caregiver reports the patient having pain, since yesterday loose stools. : No signs and/or symptoms were reported regarding the genitourinary system. Historical: - Allergies: 15:31 Geodon; ap3 15:31 Codeine; ap3 15:31 Benadryl; ap3 15:31 Amoxicillin; ap3 15:31 Meclizine; ap3 - PMHx: 15:31 diabetes mellitus; ap3 - Immunization history:: Client reports receiving the 2nd dose of the Covid vaccine. - Social history:: Smoking status: Patient denies any tobacco usage or history of. Patient/guardian denies using alcohol, street drugs. Screenin:33 Abuse screen: Denies threats or abuse. Nutritional screening: No deficits noted. ap3 Tuberculosis screening: No symptoms or risk factors identified. Fall Risk No fall in past 12 months (0 pts). No secondary diagnosis (0 pts). IV access (20 points). Ambulatory Aid- None/Bed Rest/Nurse Assist (0 pts). Gait- Weak (10 pts.). Mental Status- Oriented to own ability (0 pts). Total Butt Fall Scale indicates Low Risk Score (25-44 pts). Fall prevention measures have been instituted. Side Rails Up X 2 Placed close to Nursing Station As available Patient and Family Educated on Fall Prevention Program and strategies. Assessment: 18:40 GI: kg Vital Signs: 15:29 Pulse 100; Resp 19; Temp 98.0(O); Pulse Ox 100% ; Weight 94.8 kg; Height 5 ft. 2 in. ap3 (157.48 cm); Pain 10/10; 18:20 BP 135 / 95; Pulse 100; Resp 20; Pulse Ox 100% on R/A; kg 15:29 Body Mass Index 38.23 (94.80 kg, 157.48 cm) ap3 ED Course: 15:22 Patient arrived in ED. rg4 15:28 Zoey Price, RN is Primary Nurse. es2 15:31 Triage completed. ap3 15:34 Arm band placed on right wrist. ap3 15:34 Patient has correct armband on for positive identification. Bed in low position. Call ap3 light in reach. Side rails up X2. Pulse ox on. NIBP on. Door closed. Noise minimized. 15:35 Initial lab(s) drawn, by me. Inserted saline lock: 20 gauge in left antecubital area, vg1 using aseptic technique. Blood collected. 15:37 Young Burgos PA is PHCP. cp 15:37 Tommy Orellana MD is Attending Physician. cp 16:04 Urine Microscopic Only Sent. es2 16:42 CT Abd/Pelvis - IV Contrast Only In Process Unspecified. EDMS 18:39 No provider procedures requiring assistance completed. IV discontinued, intact, kg bleeding controlled, No redness/swelling at site. Pressure dressing applied. Administered Medications: 16:11 Drug: morphine 4 mg Route: IVP; Site: left antecubital; es2 18:41 Follow up: Response: No adverse reaction; Pain is decreased kg 16:11 Drug: Zofran (Ondansetron) 4 mg Route: IVP; Site: left antecubital; es2 18:41 Follow up: Response: No adverse reaction kg 16:15 Drug: NS 0.9% 1000 ml Route: IV; Rate: 1 bolus; Site: left antecubital; es2 18:40 Follow up: Response: No adverse reaction; IV Status: Completed infusion; IV Intake: kg 1000ml 17:05 Drug: Rocephin (cefTRIAXone) 1 grams Route: IV; Rate: calculated rate; Site: left es2 antecubital; 18:40 Follow up: Response: No adverse reaction; IV Intake: 10ml kg Intake: 18:40 IV: 10ml; Total: 10ml. kg 18:40 IV: 1000ml; Total: 1010ml. kg Outcome: 17:53 Discharge ordered by MD. cp 18:39 Discharged to home ambulatory. kg 18:39 Condition: improved 18:39 Discharge instructions given to patient, Instructed on discharge instructions, follow up and referral plans. Demonstrated understanding of instructions, follow-up care, Prescriptions given X 3. 18:49 Patient left the ED. es2 Addendum: 06/29/2021 08:32 Addendum: Culture Results: Positive urine culture. No further action required. Bacteria s s sensitive to prescribed antibiotic. Signatures: Dispatcher [employer] EDMN Shwetha Parisi RN RN ss Page, Corey, PA PA cp Garcia, Rubi rg4 Adele Ring RN RN ap3 Carole Blum RN RN vg1 Colleen Dong RN RN kg Zoey Price, RN RN es2
--- NOTE | 2021-06-25 17:54 | EDPHYS ---
Physician Documentation [facility] Name: Linda Rahman Age: 45 yrs Sex: Female : 1975 Arrival Date: 06/25/2021 Time: 15:22 Bed 17 Private MD: ED Physician Tommy Orellana HPI: 06/25 15:50 This 45 yrs old Female presents to ER via Ambulatory with complaints of cp Abdominal Pain. 15:50 The patient presents with abdominal pain right lower quadrant. Onset: The cp symptoms/episode began/occurred this morning. The symptoms do not radiate. 15:50 Associated signs and symptoms: Pertinent negatives: chest pain, constipation, diarrhea, cp fever, vomiting. The symptoms are described as constant. 15:50 Severity of pain: in the emergency department the pain is unchanged despite home cp interventions. Historical: - Allergies: 15:31 Geodon; ap3 15:31 Codeine; ap3 15:31 Benadryl; ap3 15:31 Amoxicillin; ap3 15:31 Meclizine; ap3 - PMHx: 15:31 diabetes mellitus; ap3 - Immunization history:: Client reports receiving the 2nd dose of the Covid vaccine. - Social history:: Smoking status: Patient denies any tobacco usage or history of. Patient/guardian denies using alcohol, street drugs. ROS: 15:55 Constitutional: Negative for body aches, chills, fever, poor PO intake. cp 15:55 Abdomen/GI: Positive for abdominal pain. cp 15:55 Eyes: Negative for injury, pain, redness, and discharge. cp 15:55 ENT: Negative for ear pain, sore throat, difficulty swallowing, difficulty handling secretions. 15:55 Cardiovascular: Negative for chest pain, edema, palpitations. 15:55 Respiratory: Negative for cough, shortness of breath, wheezing. 15:55 Back: Negative for radiated pain. 15:55 Neuro: Negative for altered mental status, headache, weakness. 15:55 All other systems are negative. Exam: 16:00 Constitutional: The patient appears in no acute distress, alert, awake, cp non-diaphoretic, non-toxic, well developed, well nourished, obese, uncomfortable. 16:00 Head/Face: Normocephalic, atraumatic. cp 16:00 Eyes: Periorbital structures: appear normal, Conjunctiva: normal, no exudate, no injection, Sclera: no appreciated abnormality, Lids and lashes: appear normal, bilaterally. 16:00 ENT: External ear(s): are unremarkable, Nose: is normal, Mouth: Lips: moist, Oral mucosa: moist, Posterior pharynx: Airway: no evidence of obstruction, patent. 16:00 Chest/axilla: Inspection: normal, Palpation: is normal, no crepitus, no tenderness. 16:00 Cardiovascular: Rate: tachycardic, Rhythm: regular. 16:00 Respiratory: the patient does not display signs of respiratory distress, Respirations: normal, no use of accessory muscles, no retractions, labored breathing, is not present, Breath sounds: are clear throughout, no decreased breath sounds, no stridor, no wheezing. 16:00 Abdomen/GI: Inspection: abdomen appears normal, Bowel sounds: active, all quadrants, Palpation: soft, in all quadrants, severe abdominal tenderness, in the anterior aspect of right lateral abdomen and right lower quadrant, rebound tenderness, is not appreciated, voluntary guarding, is elicited in the anterior aspect of right lateral abdomen and right lower quadrant. 16:00 Back: CVA tenderness, is absent. Vital Signs: 15:29 Pulse 100; Resp 19; Temp 98.0(O); Pulse Ox 100% ; Weight 94.8 kg; Height 5 ft. 2 in. ap3 (157.48 cm); Pain 10/10; 18:20 BP 135 / 95; Pulse 100; Resp 20; Pulse Ox 100% on R/A; kg 15:29 Body Mass Index 38.23 (94.80 kg, 157.48 cm) ap3 MDM: 15:40 Patient medically screened. cp 16:00 Differential diagnosis: appendicitis, diverticulitis, non-specific abd pain, cp Pyelonephritis, Ureterolithiasis, urinary tract infection. 17:52 Data reviewed: vital signs, nurses notes, lab test result(s), radiologic studies, plain cp films. 17:52 Counseling: I had a detailed discussion with the patient and/or guardian regarding: the cp historical points, exam findings, and any diagnostic results supporting the discharge/admit diagnosis, lab results, radiology results, to return to the emergency department if symptoms worsen or persist or if there are any questions or concerns that arise at home. Response to treatment: the patient's symptoms have markedly improved after treatment, VSS. Pain markedly improved. Patient appears non-toxic. Will discharge to home for continued monitoring. 06/25 15:37 Order name: Basic Metabolic Panel; Complete Time: 16:29 06/25 16:29 Interpretation: Normal except: GLUC 120; GFR 60. 06/25 15:37 Order name: CBC with Diff; Complete Time: 16:29 06/25 16:31 Interpretation: Normal except: RBC 4.87; HGB 15.1; ZOIE% 78.6. 06/25 15:37 Order name: Hepatic Function; Complete Time: 16:29 06/25 17:33 Interpretation: Normal except: ALK 131; BILID 0.3; TP 8.4; GLOB 3.7. 06/25 15:37 Order name: Lipase; Complete Time: 16:29 06/25 15:37 Order name: Urine Microscopic Only; Complete Time: 16:29 06/25 16:32 Interpretation: Normal except: UWBC 10-20; UBACT LOADED; SQEPI 5-10. 06/25 15:59 Order name: Urine Dipstick-Ancillary; Complete Time: 16:29 [facility] 06/25 16:32 Interpretation: Normal except: UKET 2+; UBLD Trace-intact; UPROT 1+; U NIT Positive; cp UESTR 1+. 06/25 15:37 Order name: IV Saline Lock; Complete Time: 16:04 06/25 15:37 Order name: Labs collected and sent; Complete Time: 16:04 06/25 15:48 Order name: CT Abd/Pelvis - IV Contrast Only; Complete Time: 17:32 06/25 16:29 Order name: Urine Culture EDNE 06/25 15:37 Order name: Urine Dipstick-Ancillary (obtain specimen); Complete Time: 16:04 06/25 15:37 Order name: Urine Test (obtain specimen); Complete Time: 16:04 06/25 17:34 Order name: PO challenge; Complete Time: 18:38 06/25 17:50 Order name: Vital Signs: please update to include blood pressure; Complete Time: 18:38 cp Administered Medications: 16:11 Drug: morphine 4 mg Route: IVP; Site: left antecubital; es2 18:41 Follow up: Response: No adverse reaction; Pain is decreased kg 16:11 Drug: Zofran (Ondansetron) 4 mg Route: IVP; Site: left antecubital; es2 18:41 Follow up: Response: No adverse reaction kg 16:15 Drug: NS 0.9% 1000 ml Route: IV; Rate: 1 bolus; Site: left antecubital; es2 18:40 Follow up: Response: No adverse reaction; IV Status: Completed infusion; IV Intake: kg 1000ml 17:05 Drug: Rocephin (cefTRIAXone) 1 grams Route: IV; Rate: calculated rate; Site: left es2 antecubital; 18:40 Follow up: Response: No adverse reaction; IV Intake: 10ml kg Disposition: 18:51 Co-signature as Attending Physician, Tommy Orellana MD I agree with the assessment and rn plan of care. Attestation: The patient's history, exam findings, diagnostics, and a summary of any interventions or procedures was reviewed in detail with Young CABELLO. Disposition Summary: 06/25/21 17:53 Discharge Ordered Location: Home cp Problem: new cp Symptoms: have improved cp Condition: Stable cp Diagnosis - UTI/ Urinary tract infection, site not specified cp Followup: cp - With: Private Physician - When: 1 - 2 days - Reason: Recheck today's complaints Discharge Instructions: - Discharge Summary Sheet cp - Urinary Tract Infection, Adult cp Forms: - Medication Reconciliation Form cp - Thank You Letter cp - Antibiotic Education cp - Prescription Opioid Use cp Prescriptions: - Ibuprofen 800 mg Oral Tablet - take 1 tablet by ORAL route every 8 hours As needed take with food; 30 tablet; cp Refills: 0, Product Selection Permitted - Zofran 4 mg Oral Tablet - take 1 tablet by ORAL route every 12 hours As needed; 20 tablet; Refills: 0, cp Product Selection Permitted - Bactrim DS 800-160 mg Oral Tablet - take 1 tablet by ORAL route every 12 hours for 7 days; 14 tablet; Refills: 0, cp Product Selection Permitted Signatures: Dispatcher [employer] Tommy Juárez MD MD rn Page, Corey, PA PA cp Adele Ring RN RN ap3 Zoey Price RN RN es2 Colleen Dong RN kg
[2021-06-25 19:11] VITALS: TEMP 98; O2SAT 100
[2021-06-25 19:22] VITALS: BP 135/95
== END 2021-06-25 18:49 | disposition home or self-care (01) ==
LOC: ER 15:20
DX: N39.0 Urinary tract infection, site not specified (principal); Z88.1 Allergy status to other antibiotic agents; Z88.5 Allergy status to narcotic agent; Z88.8 Allergy status to other drugs, medicaments and biological substances
CPT/HCPCS: 96361; 87088; 85025; 87086; 80048; 36415; 80076; 87077; 87186; 83690; 74177; 96375; 96374; 99284; Q9967; J7030; J2405; 81003; 81015

== ENCOUNTER 2021-07-24 17:27 | Emergency (ER) | payer OTHER ==
[2021-07-24 18:35] LABS: Albumin 4.5 g/dL (3.4-5.0); Bilirubin Direct 0.3 mg/dL (0-0.2); Bilirubin Total 1.1 mg/dL (0.2-1.0); Potassium 3.9 mmol/L (3.5-5.1); Protein, Total 7.8 g/dL (6.4-8.2)
[2021-07-24 18:41] LABS: Absolute Lymphocytes (CBC) 0.8 K/uL (0.7-4.9); Basophils % 0.5 % (0-1.3); Lymphocytes % 7.4 % (15.3-44.8); MPV 9.9 fL (7.6-11.3); RBC Red Blood Cell Count 4.45 M/uL (3.86-4.86)
[2021-07-24] MEDS ORDERED: NA CHLORIDE 0.9% 1,000 ML ONE (19:19)
--- NOTE | 2021-07-24 19:46 | RAD REPORT ---
EXAM DESCRIPTION: CT - Abdomen Pelvis W Contrast - 07/24/2021 7:09 pm CLINICAL HISTORY: ABD PAIN COMPARISON: Abdomen Pelvis W Contrast dated 06/25/2021 TECHNIQUE: Biphasic, helical CT imaging of the abdomen and pelvis was performed following 100 ml non -ionic IV contrast. No oral contrast. All CT scans are performed using dose optimization technique as appropriate and may include automated exposure control or mA/KV adjustment according to patient size. FINDINGS: No suspicious findings in the lung bases. Mild diffuse fatty infiltration present with no focal liver lesion. Gallbladder is absent with no abn ormal biliary tree dilatation. No pancreatic abnormality seen. Splenomegaly is present with a 20 cent imeter craniocaudal dimension. Symmetric renal function is seen with no hydronephrosis or suspicious renal mass. No pyelonephritis o r acute parenchymal process. Urinary bladder is fully contracted assessment. No adrenal abnormalities . No uterine abnormality. Left ovary is positioned along the left posterior side of the uterus, uncha nged from June 25 imaging. Left ovary likely contains a cyst. No acute process evident. No dilated bowel loops or bowel wall thickening. No evidence for appendicitis. No free air, free flui d or inflammatory stranding. No hernia, mass or bulky lymphadenopathy. No suspicious bony findings. IMPRESSION: Contrast enhanced CT abdomen and pelvis showing no acute or emergent finding. Above detailed findings are similar to the June 25 study.
[2021-07-24 19:59] LABS: Blood Morphology Comment NOT SEEN (NOT SEEN); Platelet Estimate ADEQ; White Blood Cell Scan OK (OK)
--- NOTE | 2021-07-24 20:07 | ER ---
Nurse's Notes [facility] Name: Linda Rahman Age: 45 yrs Sex: Female : 1975 Arrival Date: 07/24/2021 Time: 17:28 Bed 14 Private MD: Jimy Veloz T Diagnosis: Upper abdominal pain, unspecified Presentation: 07/24 17:36 Chief complaint: Patient states: Upper abd pain with N/V for 1 day. No fever. ll1 Coronavirus screen: Vaccine status: Patient reports receiving the 2nd dose of the covid vaccine. Client denies travel out of the [place] in the last 14 days. At this time, the client does not indicate any symptoms associated with coronavirus-19. Ebola Screen: Patient denies travel to an Ebola-affected area in the 21 days before illness onset. Initial Sepsis Screen: Does the patient meet any 2 criteria? No. Patient's initial sepsis screen is negative. Does the patient have a suspected source of infection? Yes: Acute abdominal pain. Risk Assessment: Do you want to hurt yourself or someone else? Patient reports no desire to harm self or others. Onset of symptoms was July 24, 2021. 17:36 Method Of Arrival: Ambulatory ll1 17:36 Acuity: HOLLEY 3 ll1 Triage Assessment: 20:47 General: Appears in no apparent distress. Behavior is calm, cooperative. bb Historical: - Allergies: 17:36 Amoxicillin; ll1 17:36 Benadryl; ll1 17:36 Codeine; ll1 17:36 Geodon; ll1 17:36 Meclizine; ll1 - PMHx: 17:36 diabetes mellitus; ll1 - PSHx: 17:36 None; ll1 - Immunization history:: Client reports receiving the 2nd dose of the Covid vaccine. - Social history:: Smoking status: Patient denies any tobacco usage or history of. Screenin:19 Abuse screen: Denies threats or abuse. Denies injuries from another. Nutritional jt3 screening: No deficits noted. Tuberculosis screening: No symptoms or risk factors identified. Fall Risk None identified. Assessment: 18:19 Pain: Complains of pain in abdomen Pain does not radiate. Pain currently is 7 out of 10 jt3 on a pain scale. Quality of pain is described as pressure, Pain began 1 day ago. Is. GI: Bowel sounds present X 4 quads. Abd is soft in right upper quadrant and left upper quadrant Abdomen is tender to palpation. 20:46 Reassessment: Patient is alert, oriented x 3, equal unlabored respirations, skin bb warm/dry/pink. pt verbalized understanding of and agrees to plan of care discharge instructions given pt ambulated with steady gait to exit accompanied by family. Vital Signs: 17:36 BP 152 / 97; Pulse 112; Resp 20; Temp 98.5; Pulse Ox 98% ; Weight 105.69 kg; Height 5 ll1 ft. 2 in. (157.48 cm); Pain 10/10; 20:46 BP 144 / 87; Pulse 95; Resp 18; Pulse Ox 97% on R/A; oe 17:36 Body Mass Index 42.62 (105.69 kg, 157.48 cm) ll1 ED Course: 17:28 Patient arrived in ED. as 17:28 Jimy Veloz MD is Private Physician. as 17:30 Genesis Mcmahon FNP-C [facility]. kb 17:30 Paris Feldman MD is Attending Physician. kb 17:36 Arm band placed on Patient placed in an exam room, on a stretcher. ll1 17:37 Triage completed. ll1 17:47 Rachid Vallejo RN is Primary Nurse. jt3 18:10 Initial lab(s) drawn, by me, sent to lab. Inserted saline lock: 20 gauge in right iw antecubital area, using aseptic technique. Blood collected. 18:19 Patient has correct armband on for positive identification. Bed in low position. Call jt3 light in reach. Side rails up X2. 18:19 No provider procedures requiring assistance completed. jt3 19:09 CT Abd/Pelvis - IV Contrast Only In Process Unspecified. EDMS 20:46 IV discontinued, intact, bleeding controlled, No redness/swelling at site. Pressure bb dressing applied. Administered Medications: 18:57 Drug: NS 0.9% 1000 ml Route: IV; Rate: 1000 ml; Site: right antecubital; jt3 20:48 Follow up: IV Status: Completed infusion; IV Intake: 1000ml bb 20:09 Drug: morphine 4 mg {Note: rass 0.} Route: IVP; Site: right antecubital; pv 20:47 Follow up: Response: No adverse reaction; Pain is decreased; RASS: Alert and Calm (0) bb 20:10 Drug: Zofran (Ondansetron) 4 mg Route: IVP; Site: right antecubital; pv 20:47 Follow up: Response: No adverse reaction bb Intake: 20:48 IV: 1000ml; Total: 1000ml. bb Outcome: 20:06 Discharge ordered by . kb 20:47 Discharged to home ambulatory, with family. bb 20:47 Condition: stable 20:47 Discharge instructions given to patient, Instructed on discharge instructions, follow up and referral plans. medication usage, Demonstrated understanding of instructions, follow-up care, medications, Prescriptions given X 2. 20:48 Patient left the ED. bb Signatures: Dispatcher [employer] EDMS Genesis Mcmahon, HAND SEWER-C HAND SEWER-Alayna Garland Brenda, RN RN Marychuy Gomez, RN Carlos Alberto Montes De Oca Lynsay RN RN ll1 Rachid Vallejo RN RN jt3 Orestes Sharpe, ABDULLAHI RN pv
--- NOTE | 2021-07-24 20:07 | EDPHYS ---
Physician Documentation [facility] Name: Linda Rahman Age: 45 yrs Sex: Female : 1975 Arrival Date: 07/24/2021 Time: 17:28 Bed 14 Private MD: Jimy Veloz T ED Physician Paris Feldman HPI: 07/24 21:11 This 45 yrs old Female presents to ER via Ambulatory with complaints of kb Abdominal Pain. 21:11 The patient presents with abdominal pain in the upper abdomen. Onset: The kb symptoms/episode began/occurred this morning. The symptoms do not radiate. Associated signs and symptoms: none. The symptoms are described as constant. Modifying factors: The symptoms are alleviated by nothing, the symptoms are aggravated by nothing. Severity of pain: At its worst the pain was moderate in the emergency department the pain is unchanged. The patient has experienced similar episodes in the past, a few times. The patient has not recently seen a physician. Historical: - Allergies: 17:36 Amoxicillin; ll1 17:36 Benadryl; ll1 17:36 Codeine; ll1 17:36 Geodon; ll1 17:36 Meclizine; ll1 - PMHx: 17:36 diabetes mellitus; ll1 - PSHx: 17:36 None; ll1 - Immunization history:: Client reports receiving the 2nd dose of the Covid vaccine. - Social history:: Smoking status: Patient denies any tobacco usage or history of. ROS: 21:10 Constitutional: Negative for fever, chills, and weight loss. kb 21:10 Abdomen/GI: Positive for abdominal pain, Negative for nausea, vomiting, and diarrhea. 21:10 All other systems are negative. Exam: 21:10 Constitutional: This is a well developed, well nourished patient who is awake, alert, kb and in no acute distress. Head/Face: Normocephalic, atraumatic. ENT: Moist Mucous membranes Cardiovascular: Regular rate and rhythm with a normal S1 and S2. No gallops, murmurs, or rubs. No pulse deficits. Respiratory: Respirations even and unlabored. No increased work of breathing, no retractions or nasal flaring. Skin: Warm, dry with normal turgor. Normal color. MS/ Extremity: Pulses equal, no cyanosis. Neurovascular intact. Full, normal range of motion. Neuro: Awake and alert, GCS 15, oriented to person, place, time, and situation. Moves all extremities. Normal gait. Psych: Awake, alert, with orientation to person, place and time. Behavior, mood, and affect are within normal limits. 21:10 Abdomen/GI: Inspection: abdomen appears normal, Bowel sounds: normal, in all quadrants, Palpation: soft, in all quadrants, mild abdominal tenderness, in the epigastric area and right upper quadrant. Vital Signs: 17:36 BP 152 / 97; Pulse 112; Resp 20; Temp 98.5; Pulse Ox 98% ; Weight 105.69 kg; Height 5 ll1 ft. 2 in. (157.48 cm); Pain 07/05; 20:46 BP 144 / 87; Pulse 95; Resp 18; Pulse Ox 97% on R/A; oe 17:36 Body Mass Index 42.62 (105.69 kg, 157.48 cm) ll1 MDM: 17:38 Patient medically screened. kb 21:10 Data reviewed: vital signs, nurses notes. Data interpreted: Pulse oximetry: on room air kb is 97 %. Interpretation: normal. Counseling: I had a detailed discussion with the patient and/or guardian regarding: the historical points, exam findings, and any diagnostic results supporting the discharge/admit diagnosis, lab results, radiology results, the need for outpatient follow up, a passenger tire inspector, to return to the emergency department if symptoms worsen or persist or if there are any questions or concerns that arise at home. 07/24 17:38 Order name: Basic Metabolic Panel; Complete Time: 18:40 kb 07/24 17:38 Order name: CBC with Diff kb 07/24 17:38 Order name: Hepatic Function; Complete Time: 18:40 kb 07/24 17:38 Order name: Lipase; Complete Time: 18:40 kb 07/24 18:50 Order name: CT Abd/Pelvis - IV Contrast Only; Complete Time: 19:57 kb 07/24 20:00 Order name: CBC Smear Scan; Complete Time: 20:00 EDMS 07/24 17:38 Order name: IV Saline Lock; Complete Time: 18:15 kb 07/24 17:38 Order name: Labs collected and sent; Complete Time: 18:15 kb Administered Medications: 18:57 Drug: NS 0.9% 1000 ml Route: IV; Rate: 1000 ml; Site: right antecubital; jt3 20:48 Follow up: IV Status: Completed infusion; IV Intake: 1000ml bb 20:09 Drug: morphine 4 mg {Note: rass 0.} Route: IVP; Site: right antecubital; pv 20:47 Follow up: Response: No adverse reaction; Pain is decreased; RASS: Alert and Calm (0) bb 20:10 Drug: Zofran (Ondansetron) 4 mg Route: IVP; Site: right antecubital; pv 20:47 Follow up: Response: No adverse reaction bb Disposition Summary: 07/24/21 20:06 Discharge Ordered Location: Home kb Condition: Stable kb Diagnosis - Upper abdominal pain, unspecified kb Followup: kb - With: Private Physician - When: 2 - 3 days - Reason: Recheck today's complaints, Continuance of care, Re-evaluation by your physician Followup: kb - With: Emergency Department - When: As needed - Reason: Worsening of condition Discharge Instructions: - Discharge Summary Sheet kb - Abdominal Pain, Adult, [id number] kb Forms: - Medication Reconciliation Form kb - Thank You Letter kb - Antibiotic Education kb - Prescription Opioid Use kb Prescriptions: - Zofran 4 mg Oral Tablet - take 1 tablet by ORAL route every 6 hours As needed; 20 tablet; Refills: 0, kb Product Selection Permitted - dicyclomine 20 mg Oral Tablet - take 1 tablet by ORAL route 4 times per day As needed; 20 tablet; Refills: 0, kb Product Selection Permitted Addendum: 07/27/2021 23:00 Co-signature as Attending Physician, Paris Feldman MD PA/PROTEIN PURIFICATION SCIENTIST's history reviewed, m a2 patient interviewed, and examined. I agree with assessment and care plan and confirm the diagnosis (es) above. Signatures: Dispatcher [employer] EDGenesis Schaefer FNP-C FNP-Chelsea Sneed, RN RN Paris Carrion MD MD ma2 Cameron Wren RN RN ll1 Rachid Vallejo RN RN jt3 Orestes Sharpe, RN RN pv
[2021-07-24] MEDS ORDERED: MORPHINE 4 MG/ML SYR ONE (20:25)
[2021-07-24] MEDS ORDERED: ONDANSETRON 4 MG/2 ML VIAL ONE (20:25)
[2021-07-24 21:11] VITALS: TEMP 98.5
[2021-07-24 21:13] VITALS: BP 144/87; O2SAT 97
== END 2021-07-24 20:48 | disposition home or self-care (01) ==
LOC: ER 17:27
DX: R10.10 Upper abdominal pain, unspecified (principal); E11.9 Type 2 diabetes mellitus without complications; Z88.1 Allergy status to other antibiotic agents; Z88.5 Allergy status to narcotic agent; Z88.8 Allergy status to other drugs, medicaments and biological substances
CPT/HCPCS: 96361; 85025; 80048; 36415; 80076; 83690; 74177; 96375; 96374; 99284; Q9967; J7030; J2405

== ENCOUNTER 2021-08-01 15:16 | Emergency (ER) | payer OTHER ==
[2021-08-01] MEDS ORDERED: MORPHINE 4 MG/ML SYR ONE (16:37)
[2021-08-01] MEDS ORDERED: NA CHLORIDE 0.9% 1,000 ML ONE (16:37)
[2021-08-01] MEDS ORDERED: ONDANSETRON 4 MG/2 ML VIAL ONE (16:37)
[2021-08-01 16:47] LABS: Urine Blood Negative (Negative); Urine Glucose Negative (Negative); Urine Protein 1+ (Negative); Urine Specific Gravity 1.025 (1.005-1.030)
[2021-08-01 16:51] LABS: Absolute Lymphocytes (CBC) 0.8 K/uL (0.7-4.9); Basophils % 0.4 % (0-1.3); Hematocrit 40.2 % (36.0-45.0); Lymphocytes % 7.1 % (15.3-44.8); MPV 9.4 fL (7.6-11.3); RBC Red Blood Cell Count 4.49 M/uL (3.86-4.86)
[2021-08-01 17:02] LABS: Albumin 4.6 g/dL (3.4-5.0); Potassium 3.9 mmol/L (3.5-5.1)
[2021-08-01 17:05] LABS: Urine Specific Gravity/Preg 1.025 (1.005-1.030)
[2021-08-01 17:06] LABS: Bilirubin Direct 0.2 mg/dL (0-0.2); Bilirubin Total 0.7 mg/dL (0.2-1.0); Protein, Total 8.1 g/dL (6.4-8.2)
--- NOTE | 2021-08-01 17:10 | RAD REPORT ---
EXAM DESCRIPTION: CTAbdomen Pelvis W Contrast - 08/01/2021 5:00 pm CLINICAL HISTORY: ABD PAIN COMPARISON: Abdomen Pelvis W Contrast dated 07/24/2021; Abdomen Pelvis W Contrast dated ; Abdomen Pelvis W Contrast dated 05/26/2021; Abdomen Pelvis W Contrast dated 09/02/2017 TECHNIQUE: CT of the abdomen and pelvis was performed with contrast. All CT scans are performed using dose optimization technique as appropriate and may include automated exposure control or mA/KV adjustment according to patient size. FINDINGS: Lower chest: No acute abnormality. Liver: No acute abnormality or suspicious lesions. Biliary: Cholecystectomy. Stomach: No significant focal abnormality. Duodenum: No significant focal abnormality. Pancreas: No significant abnormality. Spleen: Similar splenomegaly. Adrenal: No suspicious lesions. Kidney/ureter: No hydronephrosis. No renal calculi. Too small to characterize and/or benign appearing renal lesions are noted. Retroperitoneum: No retroperitoneal adenopathy. Vascular: No aneurysm. Bowel: No significant focal abnormality. Peritoneum: No ascites or free air. Small fat containing umbilical hernia. Bladder: Grossly unremarkable. Reproductive: Fibroid uterus. Adnexal cysts of doubtful clinical significance in a patient of this a ge group. Bones: No acute fracture. Other: n/a IMPRESSION: No acute intra-abdominal or pelvic finding. No significant change compared with 07/24/20 21.
--- NOTE | 2021-08-01 17:12 | EDPHYS ---
Physician Documentation [facility] Name: Linda Rahman Age: 45 yrs Sex: Female : 1975 Arrival Date: 08/01/2021 Time: 15:21 Bed 16 Private MD: ED Physician Paris Feldman HPI: 08/01 16:04 This 45 yrs old Female presents to ER via Ambulatory with complaints of pm1 Abdominal Pain. 16:04 The patient presents with abdominal pain in the right upper quadrant. Onset: The pm1 symptoms/episode began/occurred today. The symptoms do not radiate. Associated signs and symptoms: Pertinent positives: nausea, Pertinent negatives: chest pain, diarrhea, shortness of breath, vomiting. The symptoms are described as sharp. Modifying factors: The symptoms are alleviated by nothing, the symptoms are aggravated by nothing. Severity of pain: in the emergency department the pain is actually worse. The patient has experienced a previous episode, approximately 5 weeks ago, and the symptoms today are exactly the same. The patient has not recently seen a physician. 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 - Social history:: Smoking status: Patient denies any tobacco usage or history of. ROS: 16:04 Constitutional: Negative for fever, chills, and weight loss, Cardiovascular: Negative pm1 for chest pain, palpitations, and edema, Respiratory: Negative for shortness of breath, cough, wheezing, and pleuritic chest pain. 16:04 Back: Negative for injury and pain, MS/Extremity: Negative for injury and deformity, Skin: Negative for injury, rash, and discoloration, Neuro: Negative for headache, weakness, numbness, tingling, and seizure. 16:04 Abdomen/GI: Positive for abdominal pain, nausea, of the right upper quadrant, Negative for vomiting, diarrhea, constipation. 16:04 All other systems are negative. Exam: 16:04 Constitutional: This is a well developed, well nourished patient who is awake, alert, pm1 and in no acute distress. Head/Face: Normocephalic, atraumatic. 16:04 Back: No spinal tenderness. No costovertebral tenderness. Full range of motion. Skin: Warm, dry with normal turgor. Normal color with no rashes, no lesions, and no evidence of cellulitis. MS/ Extremity: Pulses equal, no cyanosis. Neurovascular intact. Full, normal range of motion. 16:04 Cardiovascular: Exam negative for acute changes, Rate: normal, Rhythm: regular, Pulses: no pulse deficits are appreciated. 16:04 Respiratory: Exam negative for acute changes, respiratory distress, shortness of breath, Breath sounds: are clear throughout. 16:04 Abdomen/GI: Inspection: obese Palpation: soft, in all quadrants, mild abdominal tenderness, in the right upper quadrant. 16:04 Neuro: Exam negative for acute changes, Orientation: is normal, Mentation: is normal, Motor: is normal, moves all fours. Vital Signs: 15:49 BP 133 / 105; Pulse 114; Resp 24; Temp 98.7(O); Pulse Ox 99% on R/A; Weight 105.69 kg; vg1 Height 5 ft. 2 in. (157.48 cm); Pain 10/10; 16:15 BP 130 / 98; Pulse 110; Resp 18; Temp 98.6(O); Pulse Ox 99% on R/A; sl2 17:00 BP 126 / 78; Pulse 98; Resp 16; Temp 98.2(O); Pulse Ox 99% on R/A; sl2 15:49 Body Mass Index 42.62 (105.69 kg, 157.48 cm) vg1 MDM: 15:56 Patient medically screened. pm1 16:06 Data reviewed: vital signs. Data interpreted: Pulse oximetry: on room air is 99 %. pm1 Interpretation: normal. 17:11 Counseling: I had a detailed discussion with the patient and/or guardian regarding: the pm1 historical points, exam findings, and any diagnostic results supporting the discharge/admit diagnosis, lab results, radiology results, the need for outpatient follow up, to return to the emergency department if symptoms worsen or persist or if there are any questions or concerns that arise at home. 08/01 15:57 Order name: Basic Metabolic Panel; Complete Time: 17:10 pm1 08/01 15:57 Order name: CBC with Diff pm1 08/01 15:57 Order name: Hepatic Function; Complete Time: 17:10 pm1 08/01 15:57 Order name: Lipase; Complete Time: 17:10 pm1 08/01 16:47 Order name: Urine Dipstick-Ancillary EDMD 08/01 16:51 Order name: Urine --Ancillary (enter results); Complete Time: 17:10 eb 08/01 15:57 Order name: IV Saline Lock; Complete Time: 16:35 pm1 08/01 15:57 Order name: Labs collected and sent; Complete Time: 16:35 pm1 08/01 16:01 Order name: CT Abd/Pelvis - IV Contrast Only; Complete Time: 17:10 pm1 08/01 16:56 Order name: CBC Smear Scan EDMD 08/01 17:11 Order name: Urine Microscopic Only pm1 08/01 15:57 Order name: Urine Dipstick-Ancillary (obtain specimen); Complete Time: 16:40 pm1 08/01 15:57 Order name: Urine Test (obtain specimen); Complete Time: 16:40 pm1 Administered Medications: 16:17 Drug: Zofran (Ondansetron) 4 mg Route: IVP; Site: left wrist; sl2 16:54 Follow up: Response: No adverse reaction sl2 16:20 Drug: morphine 4 mg Route: IVP; Site: left wrist; sl2 16:54 Follow up: Response: No adverse reaction; Pain is decreased sl2 16:20 Drug: NS 0.9% 1000 ml Route: IV; Rate: 1000 ml; Site: left wrist; sl2 16:53 Follow up: Response: No adverse reaction sl2 17:18 Follow up: IV Status: Completed infusion; IV Intake: 1000ml sl2 Disposition Summary: 08/01/21 17:12 Discharge Ordered Location: Home pm1 Problem: new pm1 Symptoms: have improved pm1 Condition: Stable pm1 Diagnosis - Abdominal pain, unspecified pm1 - UTI/ Urinary tract infection, site not specified pm1 Followup: pm1 - With: Emergency Department - When: As needed - Reason: Worsening of condition Followup: pm1 - With: Private Physician - When: 2 - 3 days - Reason: Recheck today's complaints, Continuance of care, Re-evaluation by your physician Discharge Instructions: - Discharge Summary Sheet pm1 - Abdominal Pain, Adult pm1 - Urinary Tract Infection, Adult pm1 Forms: - Medication Reconciliation Form pm1 - Thank You Letter pm1 - Antibiotic Education pm1 - Prescription Opioid Use pm1 Prescriptions: - Bactrim DS 800-160 mg Oral Tablet - take 1 tablet by ORAL route every 12 hours for 10 days; 20 tablet; Refills: 0, pm1 Product Selection Permitted - Diclofenac Sodium 75 mg Oral tablet,delayed release (DR/EC) - take 1 tablet by ORAL route 2 times per day As needed; 30 tablet; Refills: 0, pm1 Product Selection Permitted - ondansetron 4 mg Oral tablet,disintegrating - place 1 tablet by TRANSLINGUAL route every 8 hours As needed; 20 tablet; pm1 Refills: 0, Product Selection Permitted Addendum: 08/10/2021 05:26 Co-signature as Attending Physician, Paris Feldman MD PA/HOIST MECHANIC's history reviewed, m a2 patient interviewed, and examined. I agree with assessment and care plan and confirm the diagnosis (es) above. Signatures: Dispatcher [employer] EDEd Whyte HOIST MECHANIC HOIST MECHANIC pm1 Paris Feldman MD MD ma2 Carole Blum RN RN vg1 Angie Mcdonnell RN RN sl2
--- NOTE | 2021-08-01 17:12 | ER ---
Nurse's Notes [facility] Name: Linda Rahman Age: 45 yrs Sex: Female : 1975 Arrival Date: 08/01/2021 Time: 15:21 Bed 16 Private MD: Diagnosis: Abdominal pain, unspecified;UTI/ Urinary tract infection, site not specified Presentation: 08/01 15:49 Chief complaint: Patient states: Since yesterday pt has had RUQ pain that feels sharp vg1 and stabbing. Pt states NVD. Coronavirus screen: Vaccine status: Patient reports receiving the 2nd dose of the covid vaccine. Ebola Screen: Patient negative for fever greater than or equal to 101.5 degrees Fahrenheit, and additional compatible Ebola Virus Disease symptoms. Initial Sepsis Screen: Does the patient meet any 2 criteria? RR > 20 per min. HR > 90 bpm. Yes Does the patient have a suspected source of infection? No. Patient's initial sepsis screen is negative. Risk Assessment: Do you want to hurt yourself or someone else? Patient reports no desire to harm self or others. Onset of symptoms was July 31, 2021. 15:49 Method Of Arrival: Ambulatory vg1 15:49 Acuity: HOLLEY 2 vg1 Triage Assessment: 15:53 General: Appears in no apparent distress. uncomfortable, Behavior is cooperative, vg1 crying. Pain: Complains of pain in right upper quadrant Pain currently is 10 out of 10 on a pain scale. GI: Abdomen is round obese, Reports diarrhea, nausea, vomiting. Derm: Skin is clammy. [employer]: 17:00 LMP 07/10/2021 sl2 Historical: - Allergies: 15:53 Amoxicillin; vg1 15:53 Benadryl; vg1 15:53 Codeine; vg1 15:53 Geodon; vg1 15:53 Meclizine; vg1 - PMHx: 15:53 diabetes mellitus; vg1 - Immunization history:: Adult Immunizations up to date, Client reports receiving the 2nd dose of the Covid vaccine. - Social history:: Smoking status: Patient denies any tobacco usage or history of. Screenin:33 Abuse screen: Denies threats or abuse. Nutritional screening: No deficits noted. sl2 Tuberculosis screening: No symptoms or risk factors identified. Never had TB. Possible symptoms: None Risk factors: None. Fall Risk None identified. No fall in past 12 months (0 pts). No secondary diagnosis (0 pts). No IV (0 pts). Ambulatory Aid- None/Bed Rest/Nurse Assist (0 pts). Gait- Normal/Bed Rest/Wheelchair (0 pts) Mental Status- Oriented to own ability (0 pts). Assessment: 16:15 General: Appears uncomfortable, well groomed, well developed, Behavior is calm, sl2 cooperative, appropriate for age. 16:15 Pain: Complains of pain in abdomen and right upper quadrant Pain radiates to abdomen sl2 and right upper quadrant Pain currently is 8 out of 10 on a pain scale. at worst was 10 out of 10 on a pain scale. level that patient reports is acceptable is 2 out of 10 on a pain scale. Quality of pain is described as aching, crampy. Neuro: No deficits noted. Level of Consciousness is awake, alert, obeys commands, Oriented to person, place, time, situation, Appropriate for age. Cardiovascular: No deficits noted. Respiratory: No deficits noted. Airway is patent Trachea midline Respiratory effort is even, unlabored, Respiratory pattern is regular, symmetrical. GI: Bowel sounds present X 4 quads. Abd is soft and non tender Reports upper abdominal pain. : No deficits noted. No signs and/or symptoms were reported regarding the genitourinary system. EENT: No deficits noted. No signs and/or symptoms were reported regarding the EENT system. Derm: No deficits noted. No signs and/or symptoms reported regarding the dermatologic system. Musculoskeletal: No deficits noted. No signs and/or symptoms reported regarding the musculoskeletal system. 16:33 Reassessment: Patient encouraged to provide urine specimen, ambulated to restroom with sl2 steady gait noted. Vital Signs: 15:49 BP 133 / 105; Pulse 114; Resp 24; Temp 98.7(O); Pulse Ox 99% on R/A; Weight 105.69 kg; vg1 Height 5 ft. 2 in. (157.48 cm); Pain 10/10; 16:15 BP 130 / 98; Pulse 110; Resp 18; Temp 98.6(O); Pulse Ox 99% on R/A; sl2 17:00 BP 126 / 78; Pulse 98; Resp 16; Temp 98.2(O); Pulse Ox 99% on R/A; sl2 15:49 Body Mass Index 42.62 (105.69 kg, 157.48 cm) vg1 ED Course: 15:21 Patient arrived in ED. ds1 15:53 Triage completed. vg1 15:53 Arm band placed on. vg1 15:56 Ed Barroso NP is PHCP. pm1 15:56 Paris Feldman MD is Attending Physician. pm1 16:14 Angie Mcdonnell RN is Primary Nurse. sl2 16:33 Patient has correct armband on for positive identification. Placed in gown. Bed in low sl2 position. Call light in reach. Side rails up X2. Adult w/ patient. 16:33 Inserted saline lock: 20 gauge in left wrist, using aseptic technique. sl2 16:40 Urine collected: clean catch specimen, cloudy. mh5 16:46 Warm blanket given. Pulse ox on. NIBP on. mh5 16:47 Basic Metabolic Panel Sent. mh5 16:47 CBC with Diff Sent. mh5 16:47 Hepatic Function Sent. mh5 16:47 Lipase Sent. mh5 16:[address] via stretcher. sl2 17:00 CT Abd/Pelvis - IV Contrast Only In Process Unspecified. EDMS 17:27 No provider procedures requiring assistance completed. IV discontinued, intact, sl2 bleeding controlled, No redness/swelling at site. Pressure dressing applied. Administered Medications: 16:17 Drug: Zofran (Ondansetron) 4 mg Route: IVP; Site: left wrist; sl2 16:54 Follow up: Response: No adverse reaction sl2 16:20 Drug: morphine 4 mg Route: IVP; Site: left wrist; sl2 16:54 Follow up: Response: No adverse reaction; Pain is decreased sl2 16:20 Drug: NS 0.9% 1000 ml Route: IV; Rate: 1000 ml; Site: left wrist; sl2 16:53 Follow up: Response: No adverse reaction sl2 17:18 Follow up: IV Status: Completed infusion; IV Intake: 1000ml sl2 Intake: 17:18 IV: 1000ml; Total: 1000ml. sl2 Outcome: 17:12 Discharge ordered by . pm1 17:27 Discharged to home ambulatory, with family. sl2 17:27 Condition: stable 17:27 Discharge instructions given to patient, family, Instructed on discharge instructions, follow up and referral plans. medication usage, Demonstrated understanding of instructions, follow-up care, medications, Prescriptions given X 2. 17:28 Patient left the ED. sl2 Addendum: 08/06/2021 08:37 Addendum: Culture Results: Positive urine culture. No further action required. Bacteria e b sensitive to prescribed antibiotic. Signatures: Dispatcher [employer] EDNM Sapna Nath 1 Ed Barroso, [employer]ACHINE pm1 Azucena Guerra [facility] Zoey Talavera Victoria, RN RN vg1 Angie Mcdonnell RN RN sl2 Corrections: (The following items were deleted from the chart) 08/01 15:55 15:49 Acuity: HOLLEY 3 vg1 vg1 15:56 15:49 BP 133 / 105; Pulse 114bpm; Resp 22bpm; Pulse Ox 99% RA; Temp 98.7F Oral; 105.69 vg1 kg; Height 5 ft. 2 in.; BMI: 42.6; Pain 10/10; vg1
[2021-08-01 17:23] LABS: Blood Morphology Comment NOT SEEN (NOT SEEN); Platelet Estimate ADEQ; White Blood Cell Scan OK (OK)
[2021-08-01 18:01] LABS: Urine Bacteria >50 /HPF (<20); Urine RBC <5 /HPF (NONE SEEN)
[2021-08-01 18:23] VITALS: O2SAT 99
[2021-08-01 18:32] VITALS: BP 130/98; TEMP 98.6
--- OUTSIDE RECORDS SUMMARY | 2021-08-08 14:32 | XMS REPORT | Continuity of Care Document ---
:[address] [facility] t Address [address] [place] [address] Care Team Providers Name Role Phone Bryan PAULA Primary Care Physician Unavailable Bryan PAULA Attending Clinician Unavailable Josemanuel HOLLINS, A Attending Clinician AIMEE Attending Clinician Unavailable Dionne MILLAN Attending Clinician Unavailable ANDIE Attending Clinician Unavailable JONO MITCHELL Attending Clinician Unavailable Gomez HOLLINS, K.H. Attending Clinician JONA Attending Clinician Unavailable Romero LINDO Attending Clinician Unavailable JAKE Attending Clinician Unavailable Js TELLO Attending Clinician Unavailable Payers Payer Name Policy Type Policy Number Effective Date Expiration Date [facility] [id number] 2020 DUAL COMPLETE 00:00:00 [facility]LY [facility] PL[facility] [id number] 2016 00:00:00 Advance Directives Directive Decision Effective Termination Comments Source Date Date Healthcare Agents on N/A [facility] ersity FileNameRelationshipHealthcare of [place] Agent Medical RelationshipCommunicationDelpha Branch PriceMotherHealth Care [phone] (Mobile) Kei AguillonFatherFirst [facility] [phone] (Mobile) Problems Condition Condition Condition Status Onset Resolution Last Treating Co mments Source Name Details Category Date Date Treatment Clinician Date Dental Dental Disease Active Univers caries caries 5-20 ity of 00:00: [place] [facility] Chronic Chronic Disease Active Univers dental dental 5-20 ity of pain pain 00:00: [place] [facility] Macrogloss Macrogloss Disease Active U evelyn ia ia 5-20 ity of 00:00: [place] [facility] Type 2 Type 2 Disease [...] ity of with body with body 00:00[place] mass index mass index 00 Me dical of of Branch 40.0-49.9 40.0-49.9 SI joint SI joint Disease Active Unive rs arthritis arthritis 1-11 ity of 00:00: [place] [facility] Umbilical Umbilical Disease Active Uni vers hernia hernia 1-11 ity of 00:00: [place] [facility] Renal Renal Disease Active Univers cyst, cyst, 1-11 ity of right right 00:00: [place] [facility] GERD GERD Disease Active 2016-09 [...] ity of disability disability [place] MJ MJ Disease Active Univers (obstructi (obstructi 7-18 it y of ve sleep ve sleep 00:00: [place] apnea) apnea) 00 Medical Branch Multiple Multiple Disease Active Unive rs thyroid thyroid 7-10 ity of nodules nodules 00:00: [place] [facility] Tremor Tremor Disease Active Univers 7-10 ity of 00:00: [place] [facility] Twitching Twitching Disease Active Uni vers 7-10 ity of 00:00: [place] [facility] Asthma, Asthma, Disease Active Univers mild mild 5-23 ity of persistent persistent 00:00: [place] [facility] Fatty Fatty Disease Active Univers liver liver 3-24 ity of 00:00: [place] [facility] Hepatomega Hepatomega Disease Active U nivers ly ly 3-24 ity of 00:00: [place] [facility] Obesity Obesity Disease Active Univers (BMI (BMI 2-12 ity of 30-39.9) 30-39.9) 00:00: [place] [facility] Sinus Sinus Disease Active Univers tachycardi tachycardi 1-02 it y of a a 00:00: [place] [facility] Dyslipidem Dyslipidem Disease Active 2015-09 U nivers ia ia 1-22 ity of 00:00: [place] [facility] Vitamin Vitamin Disease Active 2015-09 Univers B12 B12 1-10 ity of deficiency deficiency 00:00: [place] [facility] 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 6-09 ity of 00:00: [place] [facility] Abnormal Abnormal Disease Active Unive rs uterine uterine 5-23 ity of bleeding bleeding 00:00: [place] [facility] Submucous Submucous Disease Active Uni vers leiomyoma leiomyoma 5-23 ity of of uterus of uterus 00:00: [facility] Encounter Encounter Disease Active Uni vers for blood for blood 2-16 ity of transfusio transfusio 00:00: [place] n 00 [facility] History of History of Disease Active U nivers tubal tubal 2-05 ity of ligation ligation 00:00: [place] [id number] Medical Branch 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 00:00: [place] disorder, disorder, 00 Medi cipriano in in Branch remission remission Hypothyroi Hypothyroi Disease Active U nivers d d 2-05 ity of 00:00: [place] [facility] Essential Essential Disease Active Uni vers hypertensi hypertensi 2-05 it y of on, benign on, benign 00:00: [place] 00 [facility] Well woman Well woman Disease Active U nivers exam exam 2-05 ity of 00:00: [place] [facility] Chest pain Chest pain Disease Active U nivers 9-13 ity of 00:00: [place] 00 [facility] Peripheral Peripheral Disease Active U nivers neuropathy neuropathy it y of [facility] 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 ity of [facility] PCOS PCOS Disease Active Univers (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) [facility] Allergies, Adverse Reactions, Alerts Allergy Allergy Status Severity Reaction(s) Onset Inactive Treating Comm ents Source Name Type Date Date Clinician MILK DRUG Active Other-Cmnt Univer s INGREDI 8- ity of 00:00: [place] 00 [facility] Milk Propensi Active Other - See sneeze Uni vers ty to comments 05-09 ity of adverse 00:00: [place] reaction [facility] TOMATO DRUG Active Low Other-Cmnt Univer s INGREDI 7-09 ity of 00:00: [place] 00 [facility] Tomato Propensi Active Other - See Tomato Uni vers ty to comments 04-03 source ity of adverse 00:00: reportedl [place] reaction 00 y causes Medica l s excessive Branch sneezing. But pt still eats it. CODEINE DRUG Active Low ITCHING Univers INGREDI 1-17 ity of 00:00: [place] 00 Medical Branch Codeine Propensi Active Itching Univer s ty to 1-17 ity of adverse 00:00: [place] reaction 00 [facility] Branch LORAZEPA DRUG Active High Swelling 2016-09 Univer s M INGREDI 0-02 ity of 00:00: [place] 00 Medical Branch Lorazepa Propensi Active Swelling 2016-09 Hard to Uni vers m ty to 0-02 swallow ity of adverse 00:00: [place] reaction 00 [facility] DIPHENHY DRUG Active High Swelling Univer s DRAMINE INGREDI 7-18 ity of HCL 00:00: [place] 00 [facility] Branch Diphenhy Propensi Active Swelling Univ ers dramine ty to 7-18 ity of Hcl adverse 00:00: [place] reaction 00 Medical s Branch BENZONAT DRUG Active High Swelling 2017-0 Univer s ATE INGREDI 11-04 ity of 00:00: [place] 00 Medical Branch Benzonat Propensi Active Swelling 2017-0 Tightness U nivers ate ty to 11-04 in ity of adverse 00:00: throat, [place] reaction 00 difficult Medic al s to y Branch drug swallowin g and breathing MECLIZIN DRUG Active High Anaphylaxis 2017-0 Uni vers E INGREDI 10-18 ity of 00:00: [place] 00 Medical Branch Meclizin Propensi Active Anaphylaxis 2017-0 U nivers e ty to 10-18 ity of adverse 00:00: [place] reaction 00 Medical s Branch MEPERIDI DRUG Active High Hallucinates Un jerrod NE HCL INGREDI 05-30 ity of 00:00: [place] 00 Medical Branch ZIPRASID DRUG Active High Hives 2014-0 Univers ONE HCL INGREDI 05-30 ity of 00:00: [place] 00 Medical Branch AMOXICIL DRUG Active Med Hives 2014-0 Univers FRANCA INGREDI 05-30 ity of 00:00: [place] 00 Medical Branch Amoxicil Propensi Active Hives 2014-0 Univer s franca ty to 05-30 ity of adverse 00:00: [place] reaction 00 Medical s Branch Meperidi Propensi Active Hallucinatio 2014-0 Univers ne Hcl ty to ns 05-30 ity of adverse 00:00: [place] reaction 00 Medical s Branch Ziprasid Propensi Active Hives 0 Univer s one Hcl ty to 04 ity of adverse 00:00: [place] reaction 00 Medical s Branch Social History Social Habit Start Date Stop Date Quantity Comments Source Exposure to Not sure [facility] SARS-CoV-2 (event) Medica l Branch Alcohol intake 2021-08-05 2021-08-05 0 /d [facility] 00:00:00 00:00:00 Medical Branch Cigarettes smoked 2015-05-31 2015-05-31 [facility] [place] [facility] ity of [place] current (pack per 00:00:00 00:00:00 Medical Branch day) - Reported Cigarette 2015-05-31 2015-05-31 [facility] pack-years 00:00:00 00:00:00 Medical Branch Tobacco use and 2015-05-31 2015-05-31 Never used [facility] exposure 00:00:00 00:00:00 Medical Branch History of tobacco 1982-10-20 2007-10-20 Smoker Univer [facility]ity of [place] use 00:00:00 00:00:00 Medical Branch Sex [birth year] [facility] [place] [facility] y [facility] 00:00:00 00:00:00 Medical Branch Smoking Status Start Date Stop Date Source Former smoker 2015-05-31 00:00:00 2015-05-31 00:00:00 [facility] Branch Medications Ordered Filled Start Stop Current Ordering Indication Dosage Frequency Signature Comments Components Source Medication Medication Date Date Medication? Clinician (SIG) Name Name Insulin 2020-09 Yes [id number] Use as Univ ers [place], 10-04 directed ity of Disposable, 00:00: to inject [place] (PEN 00 Ozempic Medical NEEDLE) 32 once Branch gauge x weekly " Ndle levothyroxi 2020-09 Yes [id number] 50ug Take 1 Univers ne 50 mcg 1-09 tablet by ity o f tablet 00:00: mouth [place] 00 every Medical morning. Branch semaglutide 2020-09 Yes [id number] Inject 0.5 Univers (OZEMPIC) 1-09 mg under ity of 0.25 mg or 00:00: the skin Emanuel as 0.5 mg(2 00 weekly. Medical mg/1.5 mL) Branch PnIj fluticasone 2020-09 Yes [id number] 2{puff} Inhale 2 Univers propionate 1-09 Puffs ity of (FLOVENT 00:00: every 12 [place] HFA) 110 00 (twelve) Medical mcg/actuati hours. Branch on inhaler Rinse mouth after each use. levalbutero 2020-09 Yes [id number] .63mg Inhale Univers l 0.63 mg/3 1-09 0.63 mg 3 ity of mL 00:00: (three) [place] nebulizer 00 times Medical solution daily as Branch needed for Wheezing or Shortness of Breath. losartan 50 2020-09 Yes [id number] 50mg Take 1 Univers mg tablet 1-09 tablet by ity o f 00:00: mouth 2 [place] 00 (two) Medical times Branch daily. clotrimazol 2020-09 Yes [id number] Apply to Univers e-betametha -09 area(s) 2 ity of sone cream 00:00: (two) [place] 00 times Medical daily. Branch cyclobenzap 2020-09 Yes [id number] TAKE 1 Univers rine 5 mg 1-09 TABLET BY ity o f tablet 00:00: MOUTH [place] 00 EVERY 8 Medical HOURS Branch NEEDED citalopram 2020-09 Yes [id number] 40mg Take 1 U nivers 40 mg 1-09 tablet by ity of tablet 00:00: mouth [place] 00 daily. Medical Branch econazole 2020-09 Yes [id number] Apply to Univers nitrate 1 % -09 area(s) 2 ity of cream 00:00: (two) [place] 00 times Medical daily. Branch albuterol 2020-09 Yes [id number] 2{puff} Inhale 2 Univers (PROAIR 1-09 Puffs ity of HFA) 90 00:00: every 6 [place] mcg/actuati 00 (six) Medical on inhaler hours as Branc h needed for Wheezing or Shortness of Breath. triamcinolo 2020-09 Yes [id number] Apply to Univers ne 0.025 % - area(s) 3 ity of ointment 00:00: (three) [place] 00 times Medical daily. For Branch itching mirabegron 2020-09 Yes [id number] 50mg Take 1 Univers (MYRBETRIQ) 1-09 tablet by ity of 50 mg 00:00: mouth [place] tablet 00 daily. Medical Branch diltiazem 2020-09 Yes [id number] 120mg Take 1 U nivers (CARTIA XT) 1-09 capsule by it y of 120 mg 24 00:00: mouth 2 [place] hr capsule 00 (two) Medical times Branch daily. busPIRone 2020-09 Yes [id number] 20mg Take 2 Un jerrod 10 mg 1-09 tablets by ity of tablet 00:00: mouth 2 [place] 00 (two) Medical times Branch daily. blood sugar 2020-09 Yes [id number] Use twice Univers diagnostic 1-09 a day for ity of (ONETOUCH 00:00: ICD CODE [place] VERIO TEST 00 E11.65 Medical STRIPS) Branch strip lancets 2020-09 Yes [id number] Use twice U nivers (ONE TOUCH -09 a day for ity of DELICA) 33 00:00: ICD code E[place] as gauge Misc 00 E11.65 Medical Branch pregabalin 2020-09 Yes [id number] 150mg Take 1 Univers 150 mg -09 capsule by ity of capsule 00:00: mouth 3 [place] 00 (three) Medical times Branch daily. metFORMIN 2020-09 Yes [id number] 500mg Take 1 U nivers 500 mg -09 tablet by ity of tablet 00:00: mouth 2 [place] 00 (two) Medical times Branch daily with meals. amitriptyli 2020-09 Yes [id number] 100mg Take 2 Univers ne 50 mg -09 tablets by ity o f tablet 00:00: mouth at [place] 00 bedtime. Medical Branch diclofenac 2020-09 Yes [id number] 75mg Take 1 Univers 75 mg EC 10-04 tablet by ity of tablet 00:00: mouth 2 [place] 00 (two) Medical times Branch daily with meals as needed for Pain. USE SPARINGLY DUE TO POSSIBLE SIDE EFFECTS. rosuvastati 2020-09 Yes [id number] 10mg Take 1 Univers n 10 mg 10-04 tablet by ity of tablet 00:00: mouth at [place] 00 bedtime. Medical Branch cyanocobala 2020-09 Yes [id number] 1000ug 1 mL by Univers min 1,000 09 Intramuscu ity of mcg/mL 00:00: lar route [place] injection 00 every 2 Medical (two) Branch weeks. METFORMIN 2020-09- No [id number] TAKE 1 U nivers 500 mg 008-04 TABLET BY ity of tablet 00:00: 00:00 MOUTH [place] 00 :00 TWICE Medical DAILY WITH Branch MEALS pregabalin 2020- No [id number] 150mg Take 1 Univers 150 mg 8-08-04 capsule by ity of capsule 00:00: 00:00 mouth 3 [place] 00 :00 (three) Medical times Branch daily. methylPREDN 2020- No [id number] 84mg Take 21 Univers ISolone 8-13 - tablets by ity o f (MEDROL, 00:00: 00:00 mouth [place] ASHLEY,) 4 mg 00 :00 SEE-INSTRU Med ical tablets CTIONS. Branch follow package directions diclofenac 2020- No [id number] 75mg Take 1 U nivers 75 mg EC 8-08-04 tablet by ity o f tablet 00:00: 00:00 mouth 2 [place] 00 :00 (two) Medical times Branch daily with meals. AMITRIPTYLI 2020- No [id number] 100mg TAKE 2 Univers NE 50 mg 04-29 TABLETS BY ity of tablet 00:00: 00:00 MOUTH AT [place] 00 :00 BEDTIME Medical Branch rosuvastati 2020- No 10mg Take 1 Uni vers n 10 mg 04-28 tablet by ity of tablet 00:00: 00:00 mouth at [place] 00 :00 bedtime. Medical Branch methylPREDN 2020- No [id number] Follow Univers ISolone 4 04-21 package ity of mg tablets 00:00: 00:00 directions [place] 00 :00 Medical Branch naproxen 2020- No [id number] 375mg Take 1 Univers 375 mg 04-07 tablet by ity of tablet 00:00: 00:00 mouth 2 [place] 00 :00 (two) Medical times Branch daily with meals. traMADoL 50 2020- No [id number] 50mg Take 1 Uni vers mg tablet 04-07 tablet by ity of 00:00: 00:00 mouth [place] 00 :00 every 6 Medical (six) Branch hours. Indication s: acute pain ibuprofen 2020- No [id number] 600mg Take 1 Univers 600 mg 04-01 9103 tablet by ity of tablet 00:00: 00:00 mouth [place] 00 :00 every 8 Medical (eight) Branch hours as needed for Pain (scale 4-6). hydrOXYzine 2020- No [id number] 1-2 tabs Univers 25 mg 03-28 Every 6hr ity of tablet 00:00: 00:00 as needed [place] 00 :00 for itch Medical or rash, Branch usual is 3 times a day. triamcinolo 2020- No [id number] Apply to Univers ne 0.025 % 03-28 area(s) 3 ity of ointment 00:00: 00:00 (three) [place] 00 :00 times Medical daily. For Branch itching mirabegron 2020- No [id number] 50mg Take 1 Univers (MYRBETRIQ) 6-30 11-09 tablet by it y of 50 mg 00:00: 00:00 mouth [place] tablet 00 :00 daily. Medical Branch mirabegron 2020- No [id number] 50mg Take 1 Univers (MYRBETRIQ) 03-13 tablet by it y of 50 mg 00:00: 00:00 mouth [place] tablet 00 :00 daily. Medical Branch diltiazem 2020- No [id number] 120mg Take 1 Univers (CARTIA XT) 03-13 capsule by i ty of 120 mg 24 00:00: 00:00 mouth 2 [place] hr capsule 00 :00 (two) Medical times Branch daily. busPIRone 2020- No [id number] 20mg Take 2 U nivers 10 mg 03-11 tablets by ity of tablet 00:00: 00:00 mouth 2 [place] 00 :00 (two) Medical times Branch daily. Nitrofurant 2020- No [id number] 100mg Take 1 Univers oin&Nit. 03-10 capsule by ity of Macrocryst 00:00: 00:00 mouth 2 [place] as (MACROBID) 00 :00 (two) Medical 100 mg times Branch capsule daily. Blood-Gluco Yes [id number] Use twice Univers se Meter 6-14 a day for ity of (ONETOUCH 00:00: ICD CODE [place] VERIO FLEX 00 E11.65 Medical START) Kit Branch Lancing Yes [id number] To use Univ ers Device with 6-14 twice a ity o f Lancets 00:00: day for [place] (ONE TOUCH 00 ICD code Medic al DELICA) Kit E11.65 Branch blood sugar 2020- No [id number] Use twice Univers diagnostic 6-14 09 a day for ity of (ONETOUCH 00:00: 00:00 ICD CODE [place] as VERIO TEST 00 :00 E11.65 Medical STRIPS) Branch strip lancets 2020- No [id number] Use twice Univers (ONE TOUCH 6-14 -09 a day for ity of DELICA) 33 00:00: 00:00 ICD code [place] gauge Misc 00 :00 E11.65 Medical Branch LEVOTHYROXI 2020- No [id number] TAKE 1 Univers NE 50 mcg 02-24 TABLET BY ity of tablet 00:00: 00:00 MOUTH ONCE [place] 00 :00 DAILY IN Medical THE Branch MORNING semaglutide 2020- No [id number] .5mg inject 0.5 Univers (OZEMPIC) 02-24 mg under ity o f 0.25 mg or 00:00: 00:00 the skin [place] 0.5 mg(2 00 :00 weekly. Medical mg/1.5 mL) Branch PnIj cyanocobala 2020- No [id number] 1000ug 1 mL by Univers min 1,000 02-24 Intramuscu ity of mcg/mL 00:00: 00:00 lar route [place] injection 00 :00 every 2 Medical (two) Branch weeks. Insulin 2020- No [id number] Use as Uni vers [place], 02-24 directed ity of Disposable, 00:00: 00:00 to inject [place] (PEN 00 :00 Ozempic Medical NEEDLE) 32 once Branch gauge x weekly " Ndle fluticasone 2020- No [id number] 2{puff} Inhale 2 Univers propionate 02-03 Puffs ity of (FLOVENT 00:00: 00:00 every 12 [place] HFA) 110 00 :00 (twelve) Medical mcg/actuati hours. Branch on inhaler Rinse mouth after each use. levalbutero 2020- No [id number] .63mg Inhale Univers l 0.63 mg/3 02-03 0.63 mg 3 it y of mL 00:00: 00:00 (three) [place] nebulizer 00 :00 times Medical solution daily as Branch needed for Wheezing or Shortness of Breath. BIOTIN ORAL Yes Take by Un jerrod 4-30 mouth. ity of 13:07: [place] 07 Medical Branch METHYLCELLU Yes Univer s LOSE (FIBER 4-30 ity of THERAPY 13:07: [facility] [place] [place]) 06 Medical Branch DOCUSATE Yes Take by Unive rs SODIUM 4-30 mouth. ity of (COLACE 13:07: [place] ORAL) 06 Medical Branch vitamin C Yes 1000mg Take 1,000 Univers with derrell 4-30 mg by ity of hips 13:07: mouth [place] (VITAMIN C) 06 daily. Medica l 1,000 mg Branch tablet cholecalcif Yes 1000U Take 1,000 Univers edmar, 4-30 Units by ity of vitamin D3, 13:07: mouth [place] (VITAMIN 06 daily. Medical D3) 1,000 Branch unit tablet CRANBERRY Yes Take by [facility] ers FRUIT 4-30 mouth ity of EXTRACT 13:07: daily. [place] (CRANBERRY Medical ORAL) Branch CALCIUM Yes Take by [facility] s ORAL 4-30 mouth ity of 13:07: daily. [place] [facility] DOCOSAHEXAN Yes 1000mg Take 1,000 Univers OIC 4-30 mg by ity of ACID/EPA 13:07: mouth [place] (FISH OIL 06 daily. Medical ORAL) Branch FOLIC ACID Yes Take by [facility] vers ORAL 4-30 mouth ity of 13:07: daily. [place] [facility] MULTIVIT Yes Take by [facility] rs &MINERALS/F 4-30 mouth. ity of ERROUS FUM 13:07: [place] (MULTI 05 Medical VITAMIN Branch ORAL) losartan 50 2020- No [id number] 50mg Take 1 Univers mg tablet 01-21 tablet by ity of 00:00: 00:00 mouth 2 [place] 00 :00 (two) Medical times Branch daily. clotrimazol 2020- No [id number] Apply to [facility] [place] [facility] e-betametha 01-14 area(s) 2 it y of sone cream 00:00: 00:00 (two) [place] 00 :00 times Medical daily. Branch ibuprofen 2020- No [id number] 600mg Take 1 Univers 600 mg 01-04 tablet by ity of tablet 00:00: 00:00 mouth [place] 00 :00 every 6 Medical (six) Branch hours as needed for Pain (scale 4-6). cyclobenzap 2020- No [id number] TAKE 1 Univers rine 5 mg 3-16 08-04 TABLET BY ity of tablet 00:00: 00:00 MOUTH [place] 00 :00 EVERY 8 Medical HOURS Branch NEEDED cephALEXin 2020- No [id number] 1 tab 2x/d Univers 500 mg -21 08-04 ity of tablet 00:00: 00:00 [place] 00 :00 Medical Branch citalopram 2019-09- No [id number] 40mg Take 1 Univers 40 mg -08-04 tablet by ity of tablet 00:00: 00:00 mouth [place] 00 :00 daily. Medical Branch econazole 2019-09- No Apply to Un jerrod nitrate 1 % 30 08-04 area(s) 2 it y of cream 00:00: 00:00 (two) [place] 00 :00 times Medical daily. Branch proMETHazin 2019-09 Yes TAKE 1 Univ ers e 25 mg 0-22 TABLET BY ity of tablet 00:00: MOUTH [place] 00 EVERY 6 Medical HOURS Branch NEEDED FOR NAUSEA omeprazole 2019-09 Yes 20mg Take 20 mg U nivers 20 mg 0-12 by mouth ity of capsule 00:00: daily. 00 Medical Branch albuterol 2020- No 2{puff} Inhale 2 Univers (PROAIR 4-17 08-04 Puffs ity of HFA) 90 00:00: 00:00 every 6 [place] mcg/actuati 00 :00 (six) Medical on inhaler hours as Branc h needed for Wheezing or Shortness of Breath. Ginkgo Yes Univers Biloba 120 1-16 ity of mg Tab 00:00: [place] 00 Medical Branch FERROUS Yes [id number] TAKE ONE Uni vers SULFATE 325 8-13 TABLET BY ity of mg (65 mg 00:00: MOUTH [place] iron) 00 THREE Medical tablet TIMES Branch DAILY WITH MEALS coQ10, Yes [id number] 1{capsu Take 1 U nivers ubiquinol, 1-16 le} capsule by ity of 100 mg Cap 00:00: mouth [place] 00 daily. Medical Branch loratadine Yes [id number] 10mg Take 1 Univers 10 mg 1-23 tablet by ity of tablet 00:00: mouth [place] 00 daily. Medical Branch Immunizations Ordered Immunization Filled Immunization Date Status Commen ts Source Name Name SARS-COV-2 COVID-19 2021-07-23 Completed Unive rsity of PFIZER VACCINE 00:00:00 [facility] Influenza Virus 2021-05-27 Completed Universit y of Vaccine (3+ yrs) 00:00:00 [facility] dical Branch SARS-COV-2 COVID-19 2020-12-13 Completed Unive rsity of PFIZER VACCINE 00:00:00 [facility] SARS-COV-2 COVID-19 2020-11-22 Completed Unive rsity of PFIZER VACCINE 00:00:00 [facility] Influenza Virus 2020-05-27 Completed Universit y of Vaccine Recomb Quad 00:00:00 [facility] IM, Preserv and ABX Branc h Free 18-64 YRS Pneumococcal 2019-08-10 Completed University o f Polysaccharide, 00:00:00 [facility] PPSV23 (PNEUMOVAX) Branch TDAP (ADACEL) VACCINE 2019-08-10 Completed Uni versity of 00:00:00 [facility] TDAP 2019-08-10 Completed University of 00:00:00 [facility] Influenza Virus 2019-07-04 Completed Universit y of Vaccine 00:00:00 [facility] Influenza Virus 2019-07-04 Completed Universit y of Vaccine Recomb Quad 00:00:00 [facility], Preserv and ABX Branc h Free 18-64 YRS Influenza Virus 2018-06-30 Completed Universit y of Vaccine Quad IM 3+ 00:00:00 [facility] Influenza Virus 2017-06-15 Completed Universit y of Vaccine Quad ID 18-64 00:00:00 [facility] Influenza Virus 2016-08-05 Completed Universit y of Vaccine Quad IM 00:00:00 [facility] Multi-dose 6+ MO Branch Pneumococcal 13 2016-03-07 Completed Universit y of Conjugate, PCV13 00:00:00 [facility] (Prevnar 13) Branch Meningococcal B, OMV 2016-03-07 Completed Univ ersity of 00:00:00 [facility] Heamophilus Influenza 2015-11-13 Completed Uni versity of B 00:00:00 [facility] Meningococcal 2015-11-12 Completed University of Polysaccharide 00:00:00 [facility] (groups A, C, Y and Branc h W-135) conjugate vaccine (MCV4P) TDAP 2015-10-31 Completed University of 00:00:00 [facility] Pneumococcal 2014-04-01 Completed University o f Polysaccharide, 00:00:00 [place] Med ical PPSV23 (PNEUMOVAX) [place] Vital Signs Vital Name Observation Time Observation Value Comments Source Systolic blood 2021-08-04 20:48:00 116 mm[Hg] Univer sity [facility] pressure [facility] Diastolic blood 2021-08-04 20:48:00 76 mm[Hg] Unive rsity [facility] Heart rate 2021-08-04 20:48:00 85 /min [facility] Body height 2021-08-04 20:48:00 157.5 cm [facility] Body weight 2021-08-04 20:48:00 95.709 kg [facility] BMI 2021-08-04 20:48:00 38.59 kg/m2 [facility] Oxygen saturation 2021-08-04 20:48:00 96 /min [facility] in Arterial blood Medical Br anch by Pulse oximetry Procedures This patient has no known procedures. Encounters Start End Encounter Admission Attending Care Care Encounter Source Date/Time Date/Time Type Type Clinicians Facility Department ID 2021-08-13 2021-08-13 [facility] [id number] Univers 00:00:00 00:00:00 WONDIFUL itjay o [facility] 2021-08-04 2021-08-04 [facility] [id number] Univers 15:30:00 15:42:52 WONDIFUL ity o f [facility] 2021-08-04 2021-08-04 [facility] [id number] Univers 14:30:05 15:42:52 Visit Wondiful [facility] [id number] ity [facility] [id number] Emanuel as JOLLY?BLEA [id number] De gabi CHAIREZ [address] [place] [address] MEDICAL OFFICE BUILDING 2021-07-15 2021-07-15 Outpatient R AIMEE [facility] [id number] Univers 14:20:00 14:20:00 SHORTY itjay o f [facility] 2021-05-25 2021-05-25 Emergency X MONTY [facility] ERT [id number] Univers 18:22:00 20:23:00 [facility] 2021-04-01 2021-04-01 Emergency X ANDIE, [facility] ERT [id number] Univers 13:00:00 15:36:00 DESTINY [facility] 2021-03-20 2021-03-20 Emergency X Tatiana MITCHELL [facility] ERT [id number] Univers 19:09:00 19:47:00 [facility] 2021-02-25 2021-02-25 Telephone [facility] [id number] 00:00:00 00:00:00 Ricardo De León [id number] Belinda [id number] Esme [id number] nal 059 Building 2021-02-17 2021-02-17 Outpatient Brock TENORIO [facility] [id number] Univers 17:40:00 17:17:33 [facility] 2021-01-01 2021-01-01 Outpatient R JOSEMANUEL [facility] [id number] Univers 15:00:00 15:00:00 WONDIFUL ity o f [facility] 2020-12-13 2020-12-13 Outpatient R BELGICA [facility] [id number] Univers 08:25:00 08:25:00 TAMMY [facility] 2020-12-02 2020-12-02 Outpatient R JAKE [facility] [id number] Univers 09:00:00 09:00:00 LIANA [facility] 2020-11-22 2020-11-22 Outpatient R BELGICA [facility] [id number] Univers 09:40:00 09:40:00 TAMMY [facility] 2020-11-09 2020-11-09 Outpatient R ELISHA [facility] [id number] Univers 08:20:00 08:20:00 RD [facility] 2020-08-25 2020-08-25 Outpatient R JOSEMANUEL [facility] [id number] Univers 11:00:00 11:13:03 WONDIFUL ity o f [facility] Results This patient has no known results.
== END 2021-08-01 17:28 | disposition home or self-care (01) ==
LOC: ER 15:16
DX: N39.0 Urinary tract infection, site not specified (principal); E11.9 Type 2 diabetes mellitus without complications; Z88.1 Allergy status to other antibiotic agents; Z88.5 Allergy status to narcotic agent; Z88.8 Allergy status to other drugs, medicaments and biological substances
CPT/HCPCS: 96361; 87088; 85025; 87086; 80048; 36415; 81025; 82565; 80076; 87077; 87186; 83690; 74177; 96375; 96374; 99284; Q9967; J7030; J2405; 81003; 81015

== ENCOUNTER 2021-08-16 18:07 | Observation (INO) | payer OTHER ==
[2021-08-16] MEDS ORDERED: NALOXONE 0.4 MG/ML VIAL ONE (19:11)
[2021-08-16 19:18] LABS: Protime INR 0.97
[2021-08-16 19:33] LABS: ALT/SGPT 57 U/L (12-78); AST/SGOT 41 U/L (15-37); Albumin 3.6 g/dL (3.4-5.0); Alkaline Phosphatase 200 U/L (45-117); BUN Blood Urea Nitrogen 16 mg/dL (7-18); Bicarbonate 25 mmol/L (21-32); Bilirubin Direct 0.2 mg/dL (0-0.2); Bilirubin Total 0.5 mg/dL (0.2-1.0); Glucose Level 188 mg/dL (74-106); Magnesium 2.1 mg/dL (1.8-2.4); NT PRO-BNP 86 pg/mL (<125); Potassium 4.8 mmol/L (3.5-5.1); Sodium Level 140 mmol/L (136-145); Troponin (Emerg Dept Use Only) < 0.02 ng/mL (0.0-0.045)
[2021-08-16 19:40] LABS: Absolute Lymphocytes (CBC) 0.6 K/uL (0.7-4.9); Basophils % 0.3 % (0-1.3)
[2021-08-16 19:42] LABS: Hematocrit 35.1 % (36.0-45.0); Lymphocytes % 5.8 % (15.3-44.8); RBC Red Blood Cell Count 3.86 M/uL (3.86-4.86)
--- NOTE | 2021-08-16 20:24 | RAD REPORT ---
EXAM DESCRIPTION: CT - CTHCSPWOC - 08/16/2021 7:57 pm CLINICAL HISTORY: headache, neck pain COMPARISON: Neck Angio dated 12/04/2020; Head Brain Wo Cont dated 03/04/2021 TECHNIQUE: Axial 5 mm thick images of the head were obtained. Axial 2 mm thick images of the cervic al spine were obtained with sagittal and coronal reconstruction images generated and reviewed. All CT scans are performed using dose optimization technique as appropriate and may include automated exposure control or mA/KV adjustment according to patient size. FINDINGS: No intracranial hemorrhage, mass, edema or acute intracranial finding. No suspicion for ac levelock infarction. Ventricles are normal. No extra-axial fluid collections. Mastoid air cells and parana yana sinuses are clear. No globe or orbit abnormality seen. No atrophy or chronic ischemic change. Int racranial findings are similar to comparison. Cervical body height and alignment are normal. No disk space narrowing. No fracture or acute bony abn ormality. Central canal detail is inherently limited. No paraspinal mass or hematoma. Thyroid nodularity is present but not adequately evaluated on this s tudy. IMPRESSION: Negative CT head examination for acute or significant finding. Negative CT cervical spine examination for acute or significant finding.
--- NOTE | 2021-08-16 20:28 | RAD REPORT ---
EXAM DESCRIPTION: RAD - Chest Single View - 08/16/2021 7:29 pm CLINICAL HISTORY: CHEST PAIN COMPARISON: AP chest March 04 TECHNIQUE: AP portable chest image was obtained 08/16/2021 7:29 pm . FINDINGS: Lung volumes are low. No peripheral mass consolidation peer heart size is normal. Central vasculature is mildly prominent but not clearly different. Interstitial pattern also mildly prominent but stable. A minimal failure or volume overload is unlikely but not excluded. No measurable pleural effusion and no pneumothorax. No acute bony abnormality seen. No acute aortic findings suspected. IMPRESSION: No acute chest finding confirmed. Chest findings are similar to March 04.
[2021-08-16] MEDS ORDERED: CEFTRIAXONE 1000 MG/VIAL ONE (20:34)
--- NOTE | 2021-08-16 20:38 | RAD REPORT ---
EXAM DESCRIPTION: CT - Angio Aorta For Dissection - 08/16/2021 8:05 pm CLINICAL HISTORY: thoracic back pain COMPARISON: CT dissection 2016, portable chest August 16, 2021, CT abdomen and pelvis August 01 TECHNIQUE: Dynamically enhanced 3 mm thick images of the chest, abdomen, and upper pelvis were obtai sarah during administration of approximately 150mL Isovue 370 IV contrast. Sagittal and coronal reconst ruction images were generated using MIP and reviewed. Exam utilizes a protocol to evaluate entire cou rse of the aorta. All CT scans are performed using dose optimization technique as appropriate and may include automated exposure control or mA/KV adjustment according to patient size. FINDINGS: Bolus timing or cardiac function issues result in suboptimal aortic opacification. Aorta i s normal in diameter. There is no aneurysmal dilatation and dissection is unlikely. Distal most aorta and iliac vasculature are properly opacified and without suspicious finding. No pulmonary artery abnormality evident. No cardiomegaly, pericardial thickening or pericardial effus ion. Along the lateral right mid chest near the confluence of the major and minor fissures there is a 13 x 8 mm focus of nodularity only fractionally more prominent than in 2017. This is probably an area of scarring. Malignant etiology would not be suspected given the absence of any substantial globe changer a 4 year interval. Lung parenchyma is otherwise unremarkable. No pleural thickening, pleural effusion or pneumothorax. A few small nonspecific mediastinal and hilar lymph nodes are present in a pattern not substantially different from comparison. No chest wall mass or abnormal axillary lymphadenopathy. Celiac, SMA and renal arteries are not optimally opacified. Portal vein, splenic vein and mesenteric veins are normal. Solid abdominal viscera and bowel show no significant findings. No dominant uterine abnormality identifiable. Left ovary is prominent likely containing a dominant cyst or follicle. Det ail is limited. No change from August 01 imaging. No mass or abnormal lymphadenopathy. No free air, free fluid or inflammatory stranding. No urinary bladder abnormality. No acute bone findings seen. IMPRESSION: Aortic and mesenteric vascular arterial opacification were not optimal. No abnormalities are suspected. No pulmonary embolism seen. As detailed above, no acute findings seen. No significant changes are noted from the comparison studi es as detailed in the body of the report. No other significant findings on chest, abdomen and upper pelvis examination.
[2021-08-16 20:39] LABS: Blood Morphology Comment NOT SEEN (NOT SEEN); Platelet Estimate ADEQ; White Blood Cell Scan OK (OK)
[2021-08-16] MEDS ORDERED: KETOROLAC 30 MG/ML INJ ONE (21:00)
[2021-08-16] MEDS ORDERED: FENTANYL CITR 100 MCG/2 ML ONE (21:10)
[2021-08-16] MEDS ORDERED: DIAZEPAM 10 MG/2 ML INJ SYRINGE ONE (21:11)
[2021-08-16 22:24] LABS: Barbiturates NEGATIVE (NEGATIVE); Benzodiazepines NEGATIVE (NEGATIVE); Cocaine NEGATIVE (NEGATIVE); METHAMPHETAM NEGATIVE (NEGATIVE); Methadone NEGATIVE (NEGATIVE); Opiates NEGATIVE (NEGATIVE); Phencyclidine NEGATIVE (NEGATIVE); THC Cannibis NEGATIVE (NEGATIVE)
[2021-08-16 22:59] LABS: Urine Blood Negative (Negative); Urine Glucose Negative (Negative); Urine Protein Negative (Negative)
--- NOTE | 2021-08-16 23:17 | ER ---
Nurse's Notes [facility] Name: Linda Rahman Age: 45 yrs Sex: Female : 1975 Arrival Date: 08/16/2021 Time: 18:09 Bed 30 Private MD: Diagnosis: Hypotension, unspecified;Altered mental status, unspecified;Back Pain Presentation: 08/16 18:28 Chief complaint: Patient states: CASTRO shoulder pain that began yesterday and headache. vg1 Denies injury, states lifted 20 pound dog but is unsure if that's what has caused the should pain. Denies numbness or tingling. Coronavirus screen: Vaccine status: Patient reports receiving the 2nd dose of the covid vaccine. Client denies travel out of the [place] in the last 14 days. Ebola Screen: Patient negative for fever greater than or equal to 101.5 degrees Fahrenheit, and additional compatible Ebola Virus Disease symptoms. Initial Sepsis Screen: Does the patient meet any 2 criteria? Systolic BP < 90 mmHg. HR > 90 bpm. Does the patient have a suspected source of infection? No. Patient's initial sepsis screen is negative. Risk Assessment: Do you want to hurt yourself or someone else? Patient reports no desire to harm self or others. Onset of symptoms was August 15, 2021. 18:28 Method Of Arrival: Ambulatory vg1 18:28 Acuity: HOLLEY 2 vg1 Triage Assessment: 18:41 General: Appears in no apparent distress. uncomfortable, Behavior is cooperative, vg1 drowsy. Pain: Complains of pain in right shoulder, left shoulder, head Pain currently is 10 out of 10 on a pain scale. Historical: - Allergies: 18:41 Amoxicillin; vg1 18:41 Benadryl; vg1 18:41 Codeine; vg1 18:41 Geodon; vg1 18:41 Meclizine; vg1 - Home Meds: 23:44 pregabalin 150 mg Oral cap 1 cap 3 times per day [Active]; metformin 500 mg Oral tr24 1 tw5 tab 2 times per day [Active]; amitriptyline 50 mg Oral tab 2 tabs nightly [Active]; diclofenac sodium 75 mg oral TbEC 1 tab 2 times per day [Active]; rosuvastatin 10 mg oral cpSP 1 cap nightly [Active]; cyanocobalamin (vitamin B-12) 1000 mcg/ml injection oral drop [Active]; levothyroxine 50 mcg cap 1 cap once daily [Active]; ozempic 0.25 mg [Active]; Flovent 110 mcg/actuation Inhl aero 2 puffs 2 times per day [Active]; 23:49 losartan 50 mg oral tab 1 tab 2 times per day [Active]; clotrimazole 1 % Topical crea 2 tw5 times per day [Active]; cyclobenzaprine 5 mg Oral tab 1 tab 3 times per day [Active]; citalopram 40 mg tab 1 tab once daily [Active]; 23:50 econazole nitrate 1 % cream twice a day [Active]; albuterol sulfate 90 mcg/actuation tw5 Inhl aebs 1 puff every 6 hours [Active]; triamcinolone acetonide 0.025 % Topical lotn 3 times per day [Active]; Myrbetriq 50 mg oral Tb24 1 tab once daily [Active]; diltiazem HCl 120 mg Oral cp12 1 cap 2 times per day [Active]; buspirone 15 mg Oral tab 2 tabs 2 times per day [Active]; ginkgo biloba 120 mg oral tab [Active]; omeprazole 20 mg Oral cpDR 1 cap once daily [Active]; promethazine 25 mg Oral tab 1 tab once daily [Active]; biotin 1 mg oral cap [Active]; ferrous sulfate 325 mg (65 mg iron) Oral TbEC [Active]; - PMHx: 18:41 diabetes mellitus; vg1 - Immunization history:: Client reports receiving the 2nd dose of the Covid vaccine. - Social history:: Smoking status: unknown. Screenin:04 Abuse screen: Denies threats or abuse. Nutritional screening: No deficits noted. tw5 Tuberculosis screening: No symptoms or risk factors identified. Fall Risk No fall in past 12 months (0 pts). Secondary diagnosis (15 points) impaired mobility, IV access (20 points). Ambulatory Aid- None/Bed Rest/Nurse Assist (0 pts). Gait- Weak (10 pts.). Mental Status- Oriented to own ability (0 pts). Assessment: 19:00 Reassessment: Pt noted to be slurring words, pt's reports he gave her a 10 mg jl7 Zanaflex PO x 1 about 2 hours ago, ERP notified. 20:56 Pain: Pain currently is 10 out of 10 on a pain scale. Pain: Noted to be crying. tw5 21:22 General: Appears obese, unkempt. EENT: Poor dentition noted. tw5 23:42 Neuro: Level of Consciousness is awake, alert, obeys commands, Oriented to person, tw5 place, time, situation. Vital Signs: 18:28 BP 81 / 58; Pulse 105; Resp 18; Temp 98.5; Pulse Ox 98% ; Weight 95.71 kg; Height 5 ft. vg1 2 in. (157.48 cm); Pain 10/10; 18:53 BP 79 / 49; Pulse 102; Resp 18; Pulse Ox 98% ; jl7 20:28 BP 117 / 82; Pulse 99; Resp 16; Pulse Ox 99% on R/A; tw5 20:57 BP 125 / 89; Pulse 108; Resp 14; Pulse Ox 100% ; tw5 21:16 BP 114 / 76; Pulse 104; Resp 18; Pulse Ox 100% on R/A; tw5 21:22 BP 120 / 75; Pulse 102; Resp 12; Pulse Ox 96% on R/A; Pain 10/10; tw5 21:56 Pain 5/10; tw5 21:56 Pain 5/10; tw5 22:01 BP 97 / 66; Pulse 107; Resp 18; Pulse Ox 95% on R/A; tw5 23:42 BP 94 / 64 Supine; Pulse 94; Resp 17; Pulse Ox 100% on R/A; tw5 23:42 BP 104 / 71 Sitting; Pulse 94; Resp 18; Pulse Ox 100% ; tw5 23:42 BP 91 / 64 Standing; Pulse 102; Resp 12; Pulse Ox 100% on R/A; tw5 08/17 01:47 BP 104 / 72; Pulse 94; Resp 18; Pulse Ox 96% on R/A; df1 08/16 18:28 Body Mass Index 38.59 (95.71 kg, 157.48 cm) vg1 ED Course: 08/16 18:09 Patient arrived in ED. mr 18:41 Triage completed. vg1 18:41 Arm band placed on. vg1 18:50 Mohit Ronquillo PA is PHCP. [facility] 18:50 Tommy Orellana MD is Attending Physician. [facility] 18:50 Initial lab(s) drawn, by pr, sent to lab. First set of blood cultures drawn by me. jl7 18:55 Second set of blood cultures drawn by pr. EKG done, by ED staff, reviewed by Mohit CABELLO. 19:01 Inserted saline lock: 20 gauge in right antecubital area, using aseptic technique. jl7 Blood collected. 19:21 Emily Zhong is Primary Nurse. tw5 19:29 XRAY Chest (1 view) In Process Unspecified. EDMS 19:37 CBC with Diff Sent. tw5 19:37 Procalcitonin Sent. tw5 19:37 Lactate Sent. tw5 19:37 Blood Culture Adult (2) Sent. tw5 19:57 CT Head C Spine In Process Unspecified. EDMS 20:05 CT Aorta for Dissection In Process Unspecified. EDMS 20:33 SARS-COV-2 RT PCR (Document "Date of Onset" if Symptomatic) Sent. tw5 21:56 Capone cath inserted, using sterile technique, 16 Fr., by pr, balloon inflated, to tw5 gravity drainage, urine specimen collected. 22:04 Patient has correct armband on for positive identification. Fall risk band placed. tw5 Placed in gown. Bed in low position. Call light in reach. Side rails up X 1. child monitor on. Pulse ox on. NIBP on. 22:04 No provider procedures requiring assistance completed. Inserted saline lock: 18 gauge tw5 in left antecubital area, using aseptic technique. 23:14 Nahun Dsouza is Hospitalizing Provider. [facility] Administered Medications: 18:53 CANCELLED (not neededd): NARcan (naloxone) 0.4 mg IVP once [facility] 19:00 Drug: NS 0.9% (30 ml/kg) 30 ml/kg Route: IV; Rate: bolus; Site: left antecubital; jh5 19:30 Drug: NARcan (naloxone) 0.4 mg Route: IVP; Site: left antecubital; tw5 21:56 Follow up: Response: No adverse reaction; Pain is increased tw5 19:36 Drug: NS 0.9% (30 ml/kg) 30 ml/kg Route: IV; Rate: bolus; Site: left antecubital; tw5 20:51 Follow up: IV Status: Completed infusion; IV Intake: 2500ml tw5 20:36 Drug: Rocephin (cefTRIAXone) 2 grams Route: IV; Rate: calculated rate; Site: right tw5 antecubital; 20:52 Drug: NS 0.9% (30 ml/kg) 30 ml/kg Route: IV; Rate: bolus; Site: left antecubital; tw5 21:16 Drug: Ketorolac 30 mg Route: IVP; Site: left antecubital; tw5 21:56 Follow up: Pain 5/10 Adult; Response: No adverse reaction; Pain is decreased tw5 21:16 Drug: Valium (diazepam) 2 mg Route: IVP; Site: left antecubital; tw5 21:56 Follow up: Response: No adverse reaction; Anxiety decreased tw5 21:16 Drug: fentaNYL (PF) 25 mcg Route: IVP; Site: left antecubital; tw5 21:56 Follow up: Pain 5/10 Adult; Response: No adverse reaction; Pain is decreased tw5 21:57 Follow up: Response: RASS: Alert and Calm (0) tw5 23:42 Drug: NS 0.9% 1000 ml Route: IV; Rate: 125 ml/hr; Site: right antecubital; tw5 08/17 02:04 Drug: Lidoderm Patch 5 % (700 mg/patch) 1 patches Route: Topical; Site: affected area; df1 02:08 Drug: Tylenol 650 mg Route: PO; df1 Intake: 08/16 20:51 IV: 2500ml; Total: 2500ml. tw5 Outcome: 23:16 Decision to Hospitalize by Provider. [facility] 08/17 19:27 Patient left the ED. bb Signatures: Dispatcher [employer] EDMS Mohit Ronquillo PA PA Nely Rincon mr Chelsea Rosenthal RN RN Jayden Hernandez RN RN Carole Fernandez RN RN Suzanne Lira df1 Emily Zhong tw5 Daisy Rose RN RN jh5 Corrections: (The following items were deleted from the chart) 08/16 18:43 18:41 Pain: Complains of pain in right shoulder, left shoulder, head Pain vg1 vg1
--- NOTE | 2021-08-16 23:17 | EDPHYS ---
Physician Documentation [facility] Name: Linda Rahman Age: 45 yrs Sex: Female : 1975 Arrival Date: 08/16/2021 Time: 18:09 Bed 30 Private MD: ED Physician Tommy Orellana HPI: 08/16 18:46 This 45 yrs old Female presents to ER via Ambulatory with complaints of Neck jmm and Upper Back Pain. 18:46 Onset: The symptoms/episode began/occurred gradually, 1 day(s) ago. Associated signs jmm and symptoms: Pertinent negatives: weakness. The pain does not radiate. This is a 45-year-old female with history of diabetes mellitus the presents emerged department with complaints of upper back pain, headache, confusion and difficulty with her blood pressure beginning yesterday. Patient denies known trauma, denies chest pain. Denies abdominal pain. Patient was recently treated for UTI 2 weeks prior and currently denies dysuria or hematuria.. Historical: - Allergies: 18:41 Amoxicillin; vg1 18:41 Benadryl; vg1 18:41 Codeine; vg1 18:41 Geodon; vg1 18:41 Meclizine; vg1 - Home Meds: 23:44 pregabalin 150 mg Oral cap 1 cap 3 times per day [Active]; metformin 500 mg Oral tr24 1 tw5 tab 2 times per day [Active]; amitriptyline 50 mg Oral tab 2 tabs nightly [Active]; diclofenac sodium 75 mg oral TbEC 1 tab 2 times per day [Active]; rosuvastatin 10 mg oral cpSP 1 cap nightly [Active]; cyanocobalamin (vitamin B-12) 1000 mcg/ml injection oral drop [Active]; levothyroxine 50 mcg cap 1 cap once daily [Active]; ozempic 0.25 mg [Active]; Flovent 110 mcg/actuation Inhl aero 2 puffs 2 times per day [Active]; 23:49 losartan 50 mg oral tab 1 tab 2 times per day [Active]; clotrimazole 1 % Topical crea 2 tw5 times per day [Active]; cyclobenzaprine 5 mg Oral tab 1 tab 3 times per day [Active]; citalopram 40 mg tab 1 tab once daily [Active]; 23:50 econazole nitrate 1 % cream twice a day [Active]; albuterol sulfate 90 mcg/actuation tw5 Inhl aebs 1 puff every 6 hours [Active]; triamcinolone acetonide 0.025 % Topical lotn 3 times per day [Active]; Myrbetriq 50 mg oral Tb24 1 tab once daily [Active]; diltiazem HCl 120 mg Oral cp12 1 cap 2 times per day [Active]; buspirone 15 mg Oral tab 2 tabs 2 times per day [Active]; ginkgo biloba 120 mg oral tab [Active]; omeprazole 20 mg Oral cpDR 1 cap once daily [Active]; promethazine 25 mg Oral tab 1 tab once daily [Active]; biotin 1 mg oral cap [Active]; ferrous sulfate 325 mg (65 mg iron) Oral TbEC [Active]; - PMHx: 18:41 diabetes mellitus; vg1 - Immunization history:: Client reports receiving the 2nd dose of the Covid vaccine. - Social history:: Smoking status: unknown. ROS: 18:46 Cardiovascular: Negative for chest pain, palpitations, and edema, Respiratory: Negative jmm for shortness of breath, cough, wheezing, and pleuritic chest pain, Abdomen/GI: Negative for abdominal pain, nausea, vomiting, diarrhea, and constipation. 18:46 Constitutional: Positive for fatigue. 18:46 Neck: Positive for pain with movement. 18:46 Back: Positive for pain with movement. 18:46 All other systems are negative. Exam: 18:46 Constitutional: This is a well developed, well nourished patient who is awake, alert, jmm and in no acute distress. Head/Face: atraumatic. Eyes: EOMI, no conjunctival erythema appreciated ENT: Moist Mucus Membranes 18:46 Chest/axilla: Normal chest wall appearance and motion. Cardiovascular: Regular rate and rhythm. No edema appreciated Respiratory: Normal respirations, no respiratory distress appreciated Abdomen/GI: Non distended, soft Back: Normal ROM Skin: General appearance color normal MS/ Extremity: Moves all extremities, no obvious deformities appreciated, no edema noted to the lower extremities 18:46 Neck: ROM/movement: is normal. 18:46 Neuro: Orientation: is normal, Mentation: is normal, Memory: is normal, Cranial nerves: Speech is slurred. 18:46 Psych: Behavior/mood is pleasant, cooperative. Vital Signs: 18:28 BP 81 / 58; Pulse 105; Resp 18; Temp 98.5; Pulse Ox 98% ; Weight 95.71 kg; Height 5 ft. vg1 2 in. (157.48 cm); Pain 10/10; 18:53 BP 79 / 49; Pulse 102; Resp 18; Pulse Ox 98% ; jl7 20:28 BP 117 / 82; Pulse 99; Resp 16; Pulse Ox 99% on R/A; tw5 20:57 BP 125 / 89; Pulse 108; Resp 14; Pulse Ox 100% ; tw5 21:16 BP 114 / 76; Pulse 104; Resp 18; Pulse Ox 100% on R/A; tw5 :22 BP 120 / 75; Pulse 102; Resp 12; Pulse Ox 96% on R/A; Pain 10/10; tw5 21:56 Pain 5/10; tw5 21:56 Pain 5/10; tw5 22:01 BP 97 / 66; Pulse 107; Resp 18; Pulse Ox 95% on R/A; tw5 23:42 BP 94 / 64 Supine; Pulse 94; Resp 17; Pulse Ox 100% on R/A; tw5 23:42 BP 104 / 71 Sitting; Pulse 94; Resp 18; Pulse Ox 100% ; tw5 23:42 BP 91 / 64 Standing; Pulse 102; Resp 12; Pulse Ox 100% on R/A; tw5 08/17 01:47 BP 104 / 72; Pulse 94; Resp 18; Pulse Ox 96% on R/A; df1 08/16 18:28 Body Mass Index 38.59 (95.71 kg, 157.48 cm) vg1 MDM: 08/16 18:57 Patient medically screened. marlon 23:13 Data reviewed: vital signs, nurses notes. Counseling: I had a detailed discussion with marlon the patient and/or guardian regarding: the historical points, exam findings, and any diagnostic results supporting the discharge/admit diagnosis, lab results, radiology results, the need for further work-up and treatment in the hospital. ED course: The patient initially presented hypotensive with some slurred speech. 30 mL/kg of normal saline was immediately ordered along with IV antibiotics due to concerns for sepsis. Due to slurred speech Narcan was administered, the blood pressure soon normalized but patient developed increased pain which radiated from the right trapezius down the right arm and also the right side of the chest. Of fentanyl and Valium were administered. Blood pressure declined soon after and IV fluids initiated once again. I reevaluated the patient, I do not appreciate slurred speech at this time. I discussed the patient with Chris May due to the slurred speech and the abnormal vital signs. Will observe the patient for further evaluation.. 08/16 18:46 Order name: Basic Metabolic Panel; Complete Time: 19:37 [facility] 08/16 18:46 Order name: CBC with Diff; Complete Time: 20:40 [facility] 08/16 18:46 Order name: LFT's; Complete Time: 19:37 [facility] 08/16 18:46 Order name: Magnesium; Complete Time: 19:37 [facility] 08/16 18:46 Order name: NT PRO-BNP; Complete Time: 19:37 [facility] 08/16 18:46 Order name: PT-INR; Complete Time: 19:28 [facility] 08/16 18:46 Order name: Troponin (emerg Dept Use Only); Complete Time: 19:37 [facility] 08/16 18:53 Order name: Procalcitonin; Complete Time: 20:10 [facility] 08/16 18:53 Order name: Lactate; Complete Time: 19:54 [facility] 08/16 18:53 Order name: Blood Culture Adult (2) [facility] 08/16 18:53 Order name: Urine Culture; Complete Time: 07:19 [facility] 08/16 18:54 Order name: SARS-COV-2 RT PCR (Document "Date of Onset" if Symptomatic); Complete Time: [facility] 22:13 08/16 20:39 Order name: CBC Smear Scan; Complete Time: 20:40 [facility] 08/16 21:56 Order name: Urine Drug Screen; Complete Time: 22:30 [facility] 08/16 18:46 Order name: XRAY Chest (1 view); Complete Time: 20:36 [facility] 08/16 19:18 Order name: CT Aorta for Dissection; Complete Time: 20:40 [facility] 08/16 19:47 Order name: CT Head C Spine; Complete Time: 20:36 [facility] 08/16 22:43 Order name: Lactate Sepsis 2 HR Follow-up; Complete Time: 22:48 [facility] 08/16 22:48 Order name: Urine Microscopic Only; Complete Time: 00:13 [facility] 08/16 22:59 Order name: Urine Dipstick-Ancillary; Complete Time: 23:00 [facility] 08/17 02:58 Order name: CREATININE WHOLE BLOOD; Complete Time: 07:19 [facility] 08/17 03:56 Order name: CBC with Automated Diff; Complete Time: 07:19 [facility] 08/17 04:16 Order name: Comprehensive Metabolic Panel; Complete Time: 07:19 [facility] 08/17 04:16 Order name: Lipid Profile; Complete Time: 07:19 [facility] 08/17 04:16 Order name: T4 Free; Complete Time: 07:19 [facility] 08/17 04:16 Order name: Magnesium; Complete Time: 07:19 [facility] 08/17 04:16 Order name: Thyroid Stimulating Hormone; Complete Time: 07:19 [facility] 08/17 10:55 Order name: Glucose, Ancillary Testing; Complete Time: 07:19 [facility] 08/17 14:21 Order name: MRI; Complete Time: 07:19 [facility] 08/17 16:25 Order name: Glucose, Ancillary Testing; Complete Time: 07:19 [facility] 08/16 18:46 Order name: EKG; Complete Time: 18:46 [facility] 08/16 18:46 Order name: Cardiac monitoring; Complete Time: 19:00 [facility] 08/16 18:46 Order name: EKG - Nurse/Tech; Complete Time: 19:00 [facility] 08/16 18:46 Order name: IV Saline Lock; Complete Time: 19:00 [facility] 08/16 18:46 Order name: Labs collected and sent; Complete Time: 19:00 [facility] 08/16 18:46 Order name: O2 Per Protocol; Complete Time: 19:00 [facility] 08/16 18:46 Order name: O2 Sat Monitoring; Complete Time: 19:00 [facility] 08/16 18:53 Order name: Urine Dipstick-Ancillary (obtain specimen); Complete Time: 22:40 [facility] 08/16 23:18 Order name: Orthostatics; Complete Time: 23:42 [facility] 08/17 14:25 Order name: MRI; Complete Time: 07:19 [facility] 08/17 15:10 Order name: CT; Complete Time: 07:19 EDMS Administered Medications: 18:53 CANCELLED (not neededd): NARcan (naloxone) 0.4 mg IVP once jmm 19:00 Drug: NS 0.9% (30 ml/kg) 30 ml/kg Route: IV; Rate: bolus; Site: left antecubital; jh5 19:30 Drug: NARcan (naloxone) 0.4 mg Route: IVP; Site: left antecubital; tw5 21:56 Follow up: Response: No adverse reaction; Pain is increased tw5 19:36 Drug: NS 0.9% (30 ml/kg) 30 ml/kg Route: IV; Rate: bolus; Site: left antecubital; tw5 20:51 Follow up: IV Status: Completed infusion; IV Intake: 2500ml tw5 20:36 Drug: Rocephin (cefTRIAXone) 2 grams Route: IV; Rate: calculated rate; Site: right tw5 antecubital; 20:52 Drug: NS 0.9% (30 ml/kg) 30 ml/kg Route: IV; Rate: bolus; Site: left antecubital; tw5 21:16 Drug: Ketorolac 30 mg Route: IVP; Site: left antecubital; tw5 21:56 Follow up: Pain 5/10 Adult; Response: No adverse reaction; Pain is decreased tw5 21:16 Drug: Valium (diazepam) 2 mg Route: IVP; Site: left antecubital; tw5 21:56 Follow up: Response: No adverse reaction; Anxiety decreased tw5 21:16 Drug: fentaNYL (PF) 25 mcg Route: IVP; Site: left antecubital; tw5 21:56 Follow up: Pain 5/10 Adult; Response: No adverse reaction; Pain is decreased tw5 21:57 Follow up: Response: RASS: Alert and Calm (0) tw5 23:42 Drug: NS 0.9% 1000 ml Route: IV; Rate: 125 ml/hr; Site: right antecubital; tw5 08/17 02:04 Drug: Lidoderm Patch 5 % (700 mg/patch) 1 patches Route: Topical; Site: affected area; df1 02:08 Drug: Tylenol 650 mg Route: PO; df1 Disposition Summary: 08/16/21 23:16 Hospitalization Ordered Hospitalization Status: Observation jmm Provider: Nahun Dsouza Condition: Stable jmm Problem: an acute exacerbation jmm Symptoms: have improved jmm Bed/Room Type: Standard [facility] Location: [facility] ER HOLD(08/17/21 00:52) holly Room Assignment: ERHOLD-(08/17/21 00:52) Diagnosis - Hypotension, unspecified jmm - Altered mental status, unspecified jmm - Back Pain [facility] Forms: - Medication Reconciliation Form jm - SBAR form [facility] Addendum: 08/19/2021 07:09 Co-signature as Attending Physician, Tommy Orellana MD I agree with the assessment and r n plan of care. Attestation: The patient's history, exam findings, diagnostics, and a summary of any interventions or procedures was reviewed in detail with Mohit CABELLO. Signatures: Dispatcher [employer] EDMS Tara Blum RN Mohit Ayala PA PA jmm Nieto, Roman, MD MD rn Attema, Lee, HARBOR ENGINEER-C HARBOR ENGINEER-Cla1 Carole Blum RN RN vg1 Suzanne Parker df1 Emily Zhong tw5 Daisy Rose RN jh5 Corrections: (The following items were deleted from the chart) 08/16 18:53 18:46 NARcan (naloxone) 0.4 mg IVP once ordered. [facility] 08/17 00:52 08/16 23:16 Telemetry/MedSurg (observation) [facility] 08/17 00:52 08/16 23:16 [facility]
[2021-08-16] MEDS ORDERED: NA CHLORIDE 0.9% 1,000 ML ONE (23:26)
--- NOTE | 2021-08-17 00:04 | P.HP ---
Certification for Inpatient Patient admitted to: Observation With expected LOS: <2 Midnights Patient will require the following post-hospital care: None Practitioner: I am a practitioner with admitting privileges, knowledge of patient current condition, hospital course, and medical plan of care. Services: Services provided to patient in accordance with Admission requirements found in Title 42 Section 412.3 of the Code of Federal Regulations Patient History Date of Service: 08/16/21 History of Present Illness: 45-year-old female with history of diabetes mellitus type 2, fibromyalgia, hypertension, hyperlipidemia, hypothyroidism presents the emergency department for upper back pain, bilateral shoulder pain and a headache. Upon arrival to the emergency department patient was noted to be significantly hypotensive and also had some slurred speech which was reported to started yesterday. Patient was evaluated in the emergency department labs are significant for hemoglobin 0.7 hematocrit 35.1 creatinine 1.3 GFR 41 glucose 188 initial lactic acid 2.2 decreased to 1.5 after fluids procalcitonin 0.25 patient's baseline creatinine appears to be less than 1. Patient received 30 cc/kg IV fluid bolus, blood pressure initially improved but then decreased again to around 90/50. ED provider wishes to admit under observation for hypotension, dysphasia Allergies amoxicillin [Amoxicillin] Allergy (Mild, Verified 08/14/17 10:28) Hives meperidine HCl [From Demerol] Allergy (Verified 08/14/17 10:28) Anaphylaxis ziprasidone HCl [From Geodon] Allergy (Verified 08/14/17 10:28) Anaphylaxis meclizine Adverse Reaction (Intermediate, Verified 08/14/17 10:28) Anaphylaxis diphenhydramine [From Benadryl] Adverse Reaction (Verified 08/14/17 10:28) Anaphylaxis lorazepam Adverse Reaction (Verified 08/14/17 10:28) Anaphylaxis ziprasidone mesylate [From Geodon] Adverse Reaction (Verified 08/14/17 10:28) Anaphylaxis Amoxicillin Allergy (Uncoded 08/14/17 10:28) Anaphylaxis Tessalon Allergy (Uncoded 08/14/17 10:28) Anaphylaxis Tessalon Adilene Adverse Reaction (Uncoded 08/14/17 10:28) Anaphylaxis Home Medications: Amitriptyline [Elavil*] 50 mg PO BEDTIME 08/14/17 Ascorbic Acid [Vitamin C with Yaima Hips] 1,000 mg PO DAILY 08/14/17 Cholecalciferol (Vitamin D3) [Vitamin D3] 1,000 unit PO DAILY 08/14/17 Citalopram Hydrobromide [Citalopram HBr] 40 mg PO DAILY 08/14/17 Cyanocobalamin (Vitamin B-12) [Cyanocobalamin Injection] 1 ml IM DIRECTED 08/14/17 Docusate Sodium [Stool Softener] 50 mg PO DAILY 08/14/17 Ferrous Sulfate [Ferrous Sulfate*] 1 tab PO TID 08/14/17 Fluticasone Propionate [Flonase Allergy Relief] 9.9 ml NS DAILY 08/14/17 Folic Acid 0.4 mg PO DAILY 08/14/17 Levothyroxine [Synthroid*] 50 mcg PO [id number] 08/14/17 Loratadine [Claritin*] 10 mg PO DAILY 08/14/17 Multivitamin with Minerals [Multivitamins with Minerals] 1 each PO DAILY 08/14/17 Cyclobenzaprine HCl [Flexeril] 5 mg PO Q8HR PRN 12/05/20 Diltiazem HCl [Cartia Xt] 120 mg PO BID 12/05/20 Losartan Potassium 50 mg PO BID 12/05/20 Omeprazole 20 mg PO 12/05/20 Pregabalin [Lyrica] 150 mg PO TID 12/05/20 Rosuvastatin [Crestor*] 10 mg PO BEDTIME 12/05/20 Valacyclovir HCl [Valacyclovir] 1,000 mg PO TID #21 tablet 12/06/20 predniSONE [Prednisone*] 60 mg PO DAILY #21 tab 12/06/20 - Past Medical/Surgical History Diabetic: No -: Chronic diastolic congestive heart failure -: pernicious anemia -: asthma -: major depression -: hypothyroidism -: anxiety -: neuropathy -: hypertension -: high cholesterol -: learning disability -: tachycardia -: sleep apnea -: cholecystecomy -: tubal ligation Psychosocial/ Personal History: Patient is on disability, lives at home with her family - Family History Mother -: Hypertension, Kidney disease Notes: celiac, oa, Father -: Hypertension, Diabetes, Other (see notes) Notes: high cholesterol - Social History Smoking Status: Never smoker Alcohol use: No CD- Drugs: No Caffeine use: Yes Place of Residence: Home Review of Systems 10-point ROS is otherwise unremarkable General: Weakness, Malaise Musculoskeletal: Back Pain Neurological: Other (Headache) Physical Examination - Physical Exam General: Alert, In no apparent distress, Oriented x3 HEENT: Atraumatic, PERRLA, Mucous membr. moist/pink, EOMI, Sclerae nonicteric Neck: Supple, 2+ carotid pulse no bruit, No LAD, Without JVD or thyroid abnormality Respiratory: Clear to auscultation bilaterally, Normal air movement Cardiovascular: Regular rate/rhythm, Normal S1 S2 Gastrointestinal: Normal bowel sounds, No tenderness Musculoskeletal: No tenderness Integumentary: No rashes Neurological: Normal speech, Normal strength at 5/5 x4 extr, Normal tone, Normal affect, Other (Speech mildly slurred, patient reports this is new starting yesterday no other focal neurological deficits) Lymphatics: No axilla or inguinal lymphadenopathy - Studies Laboratory Data (last 24 hrs) 08/16/21 18:55: PT 11.1, INR 0.97 08/16/21 18:55: WBC 10.60, Hgb 11.7 L, Hct 35.1 L, Plt Count 203 08/16/21 18:55: Sodium 140, Potassium 4.8, BUN 16, Creatinine 1.38 H, Glucose 188 H, Magnesium 2.1, Total Bilirubin 0.5, AST 41 H, ALT 57, Alkaline Phosphatase 200 H Assessment and Plan - Plan Assessment: Hypertension currently with hypotension Dysphasia Diabetes mellitus type 2 Back pain/fibromyalgia Hypothyroidism Hyperlipidemia Asthma Plan: Hypertension currently with hypotension: Patient received 30 cc/kg fluid bolus in the emergency department blood pressure has improved continue with IV fluids overnight. Orthostatic vital signs negative, patient does not appear septic this time with blood cell count in normal limits, no other source of infection identified. We will continue monitor closely. Dysphasia: Patient reports symptoms started yesterday, speech is relatively clear but patient reports it is worse than baseline will obtain MRI to rule out CVA. Patient clearly passes bedside swallow screen. Speech therapy consult in place. Diabetes mellitus type 2: [facility] Accu-Chek sliding scale insulin Back pain/fibromyalgia: Obtain continue home medication, as needed Lidoderm patch Hypothyroidism: Thyroid panel morning labs, continue home medications Hyperlipidemia: Continue medications Asthma: Continue home medications DVT PPX: Lovenox Code status: Full code Discharge Plan: Home Plan to discharge in: 24 Hours - Advance Directives Does patient have a Living Will: No Does patient have a Durable POA for Healthcare: No - Code Status/Comfort Care Code Status Assessed: Yes (Full code) Critical Care: No Time Spent Managing Pts Care (In Minutes): 55
[2021-08-17 00:06] LABS: Urine Bacteria <20 /HPF (<20); Urine RBC NONE SEEN /HPF (NONE SEEN); Urine Urothelial Cells <5 /HPF (NONE SEEN)
[2021-08-17] MEDS ORDERED: LIDOCAINE 4% PATCH ONE (01:28)
[2021-08-17] MEDS ORDERED: ONDANSETRON 4 MG/2 ML VIAL IV PRN (01:44)
[2021-08-17] MEDS: NA CHLORIDE 0.9% 1,000 ML IV SCH ×2 (01:44→09:44)
[2021-08-17] MEDS ORDERED: ACETAMINOPHEN 325 MG TABLET ONE (02:04)
[2021-08-17 03:55] LABS: Absolute Lymphocytes (CBC) 0.9 K/uL (0.7-4.9); Basophils % 0.4 % (0-1.3); Hematocrit 29.2 % (36.0-45.0); Lymphocytes % 14.3 % (15.3-44.8); RBC Red Blood Cell Count 3.22 M/uL (3.86-4.86)
[2021-08-17 04:10] LABS: Albumin 2.9 g/dL (3.4-5.0); Bilirubin Total 0.4 mg/dL (0.2-1.0); Potassium 4.7 mmol/L (3.5-5.1); Protein, Total 5.8 g/dL (6.4-8.2); Thyroid Stimulating Hormone 2.77 uIU/mL (0.360-3.740)
[2021-08-17 05:46] VITALS: BMI 39.6
[2021-08-17] MEDS: INSULIN -REGULAR HUMAN 50 UNIT/0.5 ML ML SQ SCH ×3 (07:30→16:18)
[2021-08-17] MEDS ORDERED: INFLUENZA VACCINE (for 6+ mo) 0.5 ML DOSE IMVAC ONE (08:00)
[2021-08-17] MEDS ORDERED: PNEUMOCOCCAL VACCINE 0.5 ML IMVAC ONE (08:00)
[2021-08-17] MEDS ORDERED: ENOXAPARIN 40 MG/0.4 ML SQ SCH (09:00)
[2021-08-17] MEDS ORDERED: NA CHLORIDE 0.9% 1,000 ML ONE (09:51)
[2021-08-17] MEDS ORDERED: ENOXAPARIN 40 MG/0.4 ML SQ ONE (10:39)
[2021-08-17] MEDS ORDERED: MORPHINE 2 MG/ML SYR ONE (13:24)
[2021-08-17] MEDS ORDERED: MORPHINE 2 MG/ML SYR IV ONE (13:26)
[2021-08-17 14:02] VITALS: BP 106/68; TEMP 98
--- NOTE | 2021-08-17 14:19 | RAD REPORT ---
EXAM DESCRIPTION: MRI - Brain Wo Cont - 08/17/2021 2:01 pm CLINICAL HISTORY: right arm weakness, dysphasia COMPARISON: November 2020 MRI TECHNIQUE: Axial, sagittal, and coronal magnetic resonance images of the brain were obtained. FINDINGS: Images are degraded by patient motion artifact No significant abnormal signal within the brain is visualized. Diffusion-weighted/ADC mapping does not reveal evidence of acute infarction. The ventricles are normal caliber. An extra-axial fluid collection is not noted. Fluid within the sinuses/mastoids is not seen IMPRESSION: No gross acute intracranial abnormality noted
--- NOTE | 2021-08-17 14:23 | RAD REPORT ---
EXAM DESCRIPTION: MRI - MRA Head Wo Cont - 08/17/2021 1:59 pm CLINICAL HISTORY: right arm weakness, dysphasia COMPARISON: None. TECHNIQUE: Magnetic resonance angiogram was performed. 3D MIPS reconstruction performed FINDINGS: The anterior cerebral, middle cerebral, posterior cerebral, distal internal carotid and ba silar arteries do not demonstrate a significant stenosis. An aneurysm is not displayed. IMPRESSION: No acute abnormality displayed
[2021-08-17] MEDS ORDERED: HOME MED 1 EA UNK (Cyclobenzaprine Hcl [Flexeril] 5 MG Tablet) PO PRN (14:42)
[2021-08-17] MEDS ORDERED: HOME MED 1 EA UNK (Albuterol Sulfate [Proair Digihaler] 90 MCG Aer.Pw.Bas) IH SCH (14:45)
[2021-08-17] MEDS ORDERED: CYCLOBENZAPRINE 10 MG TAB PO PRN (14:56)
[2021-08-17] MEDS ORDERED: PREGABALIN 150 MG CAP PO SCH (15:00)
[2021-08-17] MEDS ORDERED: BUSPIRONE HCL 15 MG TABLET PO SCH (15:00)
--- NOTE | 2021-08-17 15:10 | RAD REPORT ---
EXAM DESCRIPTION: CT - Head Brain Wo Cont - 08/17/2021 2:53 pm CLINICAL HISTORY: Right sided weakness COMPARISON: MR brain August 17, 2021 TECHNIQUE: Computed axial tomography of the head was obtained. IV contrast was not requested. All CT scans are performed using dose optimization technique as appropriate and may include automated exposure control or mA/KV adjustment according to patient size. FINDINGS: An intracranial bleed is not seen . The ventricles are normal in caliber. No extra-axial fluid collection is noted. Fluid within the sinuses/ mastoids is not seen. IMPRESSION: No acute intracranial abnormality is seen.
[2021-08-17] MEDS ORDERED: PREGABALIN 50 MG CAP ONE ×2 (16:08→16:48)
--- NOTE | 2021-08-17 18:20 | P.DS ---
Admission Date: 08/16/21 Discharge Date: 08/17/21 Disposition: ROUTINE DISCHARGE Discharge Condition: FAIR - Problems (1) TIA (transient ischemic attack) Current Visit: Yes Status: Acute (2) Drug-induced hypotension Current Visit: Yes Status: Acute (3) Bipolar disorder Onset Date: 08/15/17 Current Visit: No Status: Acute Qualifiers: Active/Remission status: currently active Current bipolar episode type: mixed Current episode severity: moderate Qualified Code(s): F31.62 - Bipolar disorder, current episode mixed, moderate (4) Hypothyroidism Onset Date: 08/15/17 Current Visit: No Status: Chronic Qualifiers: Hypothyroidism type: acquired Qualified Code(s): E03.9 - Hypothyroidism, unspecified (5) Obesity Onset Date: 08/15/17 Current Visit: No Status: Chronic Qualifiers: Obesity type: due to excess calories Obesity classification: unspecified obesity classification Serious obesity comorbidity presence: without serious comorbidity Qualified Code(s): E66.09 - Other obesity due to excess calories Brief History of Present Illness: 45-year-old female with history of diabetes mellitus type 2, fibromyalgia, hypertension, hyperlipidemia, hypothyroidism presents the emergency department for upper back pain, bilateral shoulder pain and a headache. Upon arrival to the emergency department patient was noted to be significantly hypotensive and also had some slurred speech which was reported to have started yesterday. Patient was evaluated in the emergency department labs are significant for hemoglobin 11.7 hematocrit 35.1 creatinine 1.3 GFR 41 glucose 188 initial lactic acid 2.2 decreased to 1.5 after fluids procalcitonin 0.25 patient's baseline creatinine appears to be less than 1. Patient received 30 cc/kg IV fluid bolus, blood pressure initially improved but then decreased again to around 90/50. Patient hospitalized for hypotension, dysphasia Hospital Course: She was placed on observation on the medical floor and hydrated with IV normal saline. Her blood pressure improved. Acute renal failure resolved. Creatinine improved back to baseline. Patient was complaining of left arm weakness which lasted briefly. She also had dysphagia which resolved within hours. MRI of the brain done did not show any acute stroke. Serial CT head also negative. Patient could have experienced a TIA or transient neurologic symptoms due to hypotension. Patient symptoms have resolved and deemed stable for discharge. She is prescribed aspirin for TIA. Her blood pressure medications are discontinued for now. Vital Signs/Physical Exam: Temp Pulse Resp BP Pulse Ox 98.0 F 105 H 17 106/68 97 08/17/21 12:00 08/17/21 12:00 08/17/21 13:56 08/17/21 12:00 08/17/21 13:56 General: Alert, In no apparent distress, Oriented x3 HEENT: Normocephalic, Mucous membr. moist/pink, EOMI, Sclerae nonicteric Neck: JVD not distended Respiratory: Clear to auscultation bilaterally, Normal air movement Cardiovascular: No edema, Regular rate/rhythm, Normal S1 S2, No murmurs Gastrointestinal: Soft and benign, Non-distended, No tenderness Musculoskeletal: No swelling Integumentary: No rashes, No erythema Neurological: Normal speech, Normal strength at 5/5 x4 extr, Cranial nerves 3-12 intact Laboratory Data at Discharge: WBC 6.00 K/uL (4.3-10.9) D 08/17/21 03:19 Hgb 9.8 g/dL (12.0-15.0) L 08/17/21 03:19 Hct 29.2 % (36.0-45.0) L D 08/17/21 03:19 Plt Count 138 K/uL (152-406) L D 08/17/21 03:19 PT 11.1 SECONDS (9.5-12.5) 08/16/21 18:55 INR 0.97 08/16/21 18:55 Sodium 139 mmol/L (136-145) 08/17/21 03:19 Potassium 4.7 mmol/L (3.5-5.1) 08/17/21 03:19 BUN 17 mg/dL (7-18) 08/17/21 03:19 Creatinine 1.06 mg/dL (0.55-1.3) 08/17/21 03:19 Glucose 98 mg/dL (74-106) 08/17/21 03:19 Magnesium 2.0 mg/dL (1.8-2.4) 08/17/21 03:19 Total Bilirubin 0.4 mg/dL (0.2-1.0) 08/17/21 03:19 AST 27 U/L (15-37) 08/17/21 03:19 ALT 41 U/L (12-78) 08/17/21 03:19 Alkaline Phosphatase 157 U/L (45-117) H 08/17/21 03:19 Triglycerides 87 mg/dL (<150) 08/17/21 03:19 Cholesterol 100 mg/dL (<200) 08/17/21 03:19 HDL Cholesterol 36 mg/dL (40-60) L 08/17/21 03:19 Cholesterol/HDL Ratio 2.78 08/17/21 03:19 Home Medications: Amitriptyline [Elavil*] 50 mg PO BEDTIME 08/14/17 Citalopram Hydrobromide [Citalopram HBr] 40 mg PO DAILY 08/14/17 Cyanocobalamin (Vitamin B-12) [Cyanocobalamin Injection] 1 ml IM DIRECTED 08/14/17 Ferrous Sulfate [Ferrous Sulfate*] 1 tab PO TID 08/14/17 Levothyroxine [Synthroid*] 50 mcg PO [id number] 08/14/17 Cyclobenzaprine HCl [Flexeril] 5 mg PO Q8HR PRN 12/05/20 Omeprazole 20 mg PO DAILY 12/05/20 Pregabalin [Lyrica] 150 mg PO TID 12/05/20 Rosuvastatin [Crestor*] 10 mg PO BEDTIME 12/05/20 Albuterol Sulfate [Proair Digihaler] 1 puff IH Q6H 08/17/21 Aspirin [Aspirin EC] 81 mg PO DAILY #30 tablet. 08/17/21 Buspirone HCl 15 mg PO BID 08/17/21 Diclofenac Sodium [Voltaren] 75 mg PO BID 08/17/21 Fluticasone [Flovent Hfa 110*] 2 sprays IH BID 08/17/21 Metformin HCl [Glucophage*] 500 mg PO BID 08/17/21 Mirabegron [Myrbetriq] 50 mg PO DAILY 08/17/21 Semaglutide [Ozempic] 0.25 mg SQ Q7D 08/17/21 New Medications: Aspirin [Aspirin EC] 81 mg PO DAILY #30 tablet. Physician Discharge Instructions: Do not take your metformin over the next 2 days because of IV contrast used to image your brain. You can resume taking it after 2 days. Diet: ADA Activity: Ad jeni Followup: NONE,NONE [Primary Care Provider] -
[2021-08-17 20:20] VITALS: O2SAT 96
[2021-08-17] MEDS ORDERED: FERROUS SULFATE 325 MG TAB PO SCH (21:00)
[2021-08-17] MEDS ORDERED: AMITRIPTYLINE 50 MG TAB PO SCH (21:00)
[2021-08-17] MEDS ORDERED: FLUTICASONE IH SCH (21:00)
[2021-08-17] MEDS ORDERED: ROSUVASTATIN 10 MG TAB PO SCH (21:00)
[2021-08-18] MEDS ORDERED: LEVOTHYROXINE SOD 0.05 MG TABLET PO SCH (06:00)
[2021-08-18] MEDS ORDERED: CITALOPRAM 10 MG TABLET PO SCH (09:00)
[2021-08-18] MEDS ORDERED: PANTOPRAZOLE 40MG TABLET PO SCH (09:00)
[2021-08-18] MEDS ORDERED: HOME MED 1 EA UNK (Omeprazole [Omeprazole] 20 MG Capsule.Dr) PO SCH (09:00)
[2021-08-18] MEDS ORDERED: HOME MED 1 EA UNK (Mirabegron [Myrbetriq] 50 MG Tab.Er.24h) PO SCH (09:00)
[2021-08-18] MEDS ORDERED: HOME MED 1 EA UNK (Citalopram Hydrobromide [Citalopram Hbr] 40 MG Tablet) PO SCH (09:00)
--- NOTE | 2021-08-19 08:11 | EKG ---
Test Date: 2021-08-16 Test Time: 18:50:12 Roofing Layer: ZAHRAA MEASUREMENT RESULTS: Intervals: Rate: 104 TX: 208 QRSD: 124 QT: 358 QTc: 470 [place]: P: 35 TX: 208 QRS: -63 T: 60 INTERPRETIVE STATEMENTS: Sinus tachycardia Left axis deviation Nonspecific intraventricular conduction delay Abnormal ECG Compared to ECG 03/04/2021 08:24:05 Left-axis deviation now present Intraventricular conduction delay now present Sinus rhythm no longer present Left anterior fascicular block no longer present Electronically Signed On 08-19-21 08:04:08 [employer] by Elijah Lock
== END 2021-08-17 19:00 | disposition home or self-care (01) ==
LOC: ER 18:07 → ERHOLD 23:55
PROVIDERS: ADMIT Internal Medicine; ATTEND Internal Medicine
DX: G45.9 Transient cerebral ischemic attack, unspecified (principal); I95.2 Hypotension due to drugs; R47.02 Dysphasia; N17.9 Acute kidney failure, unspecified; E11.9 Type 2 diabetes mellitus without complications; M79.7 Fibromyalgia; E03.9 Hypothyroidism, unspecified; E78.5 Hyperlipidemia, unspecified; I11.0 Hypertensive heart disease with heart failure; I50.9 Heart failure, unspecified; J45.909 Unspecified asthma, uncomplicated; F31.9 Bipolar disorder, unspecified; E66.9 Obesity, unspecified; Z68.38 Body mass index [BMI] 38.0-38.9, adult; Z20.822 Contact with and (suspected) exposure to COVID-19
CPT/HCPCS: 93005; 87040 ×2; 87088; 85025 ×2; 87086; 80048; 36415; 83735 ×2; 85610; 80061; 82565; 82947 ×2; 80076; 83605 ×2; 84443; 84484; 84439; 80053; 84145; 83880; 80307; 70450 ×2; 72125; 71275; 74175; 71045; 70551; 70544; 51702; 99291; 99292; U0003; Q9967; J2310; J1650; J3360; J3010; J2270; J7030 ×2; G0378 ×2; 81003; 81015

== ENCOUNTER 2021-10-06 02:27 | Emergency (ER) | payer OTHER ==
--- OUTSIDE RECORDS SUMMARY | 2021-10-06 02:31 | XMS REPORT | Continuity of Care Document ---
:1975 Author Organization [facility] t Address [address] [place] [address] Care Team Providers Name Role Phone Bryan PAULA Primary Care Physician Unavailable Bernadette HENRIQUEZ Attending Clinician Unavailable Florence HOLLINS, L Attending Clinician Barry Barney Attending Clinician Bryan PAULA Attending Clinician Unavailable [place] Attending Clinician Unavailable Gomez HOLLINS, K.H. Attending Clinician [place] Admitting Clinician Unavailable Payers Payer Name Policy Type Policy Number Effective Date Expiration Date S [facility]reratahir [facility] D[facility] [id number] 2021 COMP HMO D SNP 00:00:00 [facility] [place] STAR PLUS [id number] 2016 00:00:00 MEDICAID [facility] [id number] 2016 2020 00:00:00 00:00:00 [facility] HEALTH DAY8 2021 (MEDICARE 00:00:00 REPLACEMENT HMO) Advance Directives Directive Decision Effective Termination Comments Source Date Date Healthcare Agents on N/A Univ ersity FileNameRelationshipHealthcare [facility] Agent Medical RelationshipCommunicationDelpha Branch PriceMotherHealth Care [phone] (Mobile) [facility] [phone] (Mobile) Problems Condition Condition Condition Status Onset Resolution Last Treating Co mments Source Name Details Category Date Date Treatment Clinician Date Indigestio Indigestio Disease Active 2020-09 Overview : Univers n n 2-15 Formattin ity of 00:00: g of this note Medical might be Branch different from the original. Added automatic ally from request for surgery [id number] Bloating Bloating Disease Active 2020-09 Overview: Un jerrod 2-15 Formattin ity of 00:00: g of this note Medical might be Branch different from the original. 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 2-11 [...] rs arthritis arthritis 1-11 ity of 00:00: Medical Branch Umbilical Umbilical Disease Active Uni vers hernia hernia 1-11 ity of 00:00: [place] [facility] Renal Renal Disease Active Univers cyst, cyst, 1-11 ity of right right 00:00: Medical Branch GERD GERD Disease Active 2016-09 [...] ly ly 3-24 ity of 00:00: [place] 00 Medical Branch Obesity Obesity Disease Active Univers (BMI (BMI 2-12 ity of 30-39.9) 30-39.9) 00:00: [place] 00 Medical Branch Sinus Sinus Disease Active Univers tachycardi tachycardi 1-02 it y of a a 00:00: [place] [facility] Dyslipidem Dyslipidem Disease Active 2015-09 U evelyn ia ia 1-22 ity of 00:00: [place] 00 Medical Branch Vitamin Vitamin Disease Active 2015-09 Univers B12 B12 1-10 ity of deficiency deficiency 00:00: [place] [facility] [place] 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 6-09 ity of 00:00: [place] 00 Medical Branch Abnormal Abnormal Disease Active Unive rs uterine uterine 5-23 ity of bleeding bleeding 00:00: [place] 00 Medical Branch Submucous Submucous Disease Active Uni vers leiomyoma leiomyoma 5-23 ity of of uterus of uterus 00:00[place] Encounter Encounter Disease Active Uni vers for blood for blood 2-16 ity of transfusio transfusio 00:[place] 00 Medical [place] History of History of Disease Active U nivers tubal tubal 2-05 ity of ligation ligation 00:00: [place] 00 [facility] 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 00:00[place] disorder, disorder, 00 [facility] in in Branch remission remission Hypothyroi Hypothyroi Disease Active U nivers d d 2-05 ity of 00:00: [place] 00 [facility] Essential Essential Disease Active Uni vers hypertensi hypertensi 2-05 it y of on, benign on, benign 00:00[place] [facility] Well woman Well woman Disease Active U nivers exam exam 2-05 ity of 00:00: [place] [facility] Chest pain Chest pain Disease Active U nivers 9-13 ity of 00:00: [place] 00 [facility] Peripheral Peripheral Disease Active U nivers neuropathy neuropathy it y of [facility] 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 ity of [facility] PCOS PCOS Disease Active Univers (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) [facility] Allergies, Adverse Reactions, Alerts Allergy Allergy Status Severity Reaction(s) Onset Inactive Treating Comm ents Source Name Type Date Date Clinician MILK DRUG Active Other-Cmnt Univer s INGREDI 8- ity of 00:00: [place] 00 [facility] Milk Propensi Active Other - See sneeze Uni vers ty to comments 05-09 ity of adverse 00:00: [place] reaction 00 Medical Branch TOMATO DRUG Active Low Other-Cmnt Univer s INGREDI 04-03 ity of 00:00: [place] 00 Medical [place] Tomato Propensi Active Other - See Tomato Uni vers ty to comments 04-03 source ity of adverse 00:00: reportedl [place] reaction 00 y causes Medica l s excessive Branch sneezing. But pt still eats it. CODEINE DRUG Active Low ITCHING Univers INGREDI 1-17 ity of 00:00: [place] 00 Medical Branch Codeine Propensi Active Itching 2018-0 Univer s ty to 1-17 ity of adverse 00:00: [place] reaction 00 Medical s Branch LORAZEPA DRUG Active High Swelling 2017 Univer s M INGREDI 0-02 ity of 00:00: [place] 00 Medical Branch Lorazepa Propensi Active Swelling 2016-09 Hard to Uni vers m ty to 0-02 swallow ity of adverse 00:00: [place] reaction 00 Medical s Branch DIPHENHY DRUG Active High Swelling 20170 Univer s DRAMINE INGREDI 7-18 ity of HCL 00:00: [place] 00 Medical Branch Diphenhy Propensi Active Swelling 2017 Univ ers dramine ty to 7-18 ity of Hcl adverse 00:00: [place] reaction 00 Medical s Branch BENZONAT DRUG Active High Swelling 20170 Univer s ATE INGREDI 2- ity of 00:00: [place] 00 Medical Branch Benzonat Propensi Active Swelling 2017-0 Tightness U nivers ate ty to 209 in ity of adverse 00:00: throat, [place] reaction 00 difficult Medic al s to y Branch drug swallowin g and breathing MECLIZIN DRUG Active High Anaphylaxis 20170 Uni vers E INGREDI 1-23 ity of 00:00: [place] 00 Medical Branch Meclizin Propensi Active Anaphylaxis 2017-0 U nivers e ty to 1- ity of adverse 00:00: [place] reaction 00 Medical s Branch MEPERIDI DRUG Active High Hallucinates 2014-0 Un jerrod NE HCL INGREDI 05-30 ity of 00:00: [place] 00 Medical Branch ZIPRASID DRUG Active High Hives 2014-0 Univers ONE HCL INGREDI 05-30 ity of 00:00: [place] 00 Medical Branch AMOXICIL DRUG Active Med Hives 0 Univers FRANCA INGREDI 05-30 ity of 00:00: [place] 00 Medical Branch Amoxicil Propensi Active Hives 0 Univer s franca ty to 05-30 ity of adverse 00:00: [place] reaction 00 Medical s Branch Meperidi Propensi Active Hallucinatio 2014-0 Univers ne Hcl ty to ns 05-30 ity of adverse 00:00: [place] reaction 00 Medical s Branch Ziprasid Propensi Active Hives 0 Univer s one Hcl ty to 05-30 ity of adverse 00:00: [place] reaction 00 Medical s Branch Social History Social Habit Start Date Stop Date Quantity Comments Source Exposure to Not sure [facility] SARS-CoV-2 (event) Medica l Branch Alcohol intake 2021-09-29 2021-09-29 0 /d [facility] 00:00:00 00:00:00 Medical Branch Cigarettes smoked 2015-05-31 2015-05-31 [facility] current (pack per 00:00:00 00:00:00 Medical Branch day) - Reported Cigarette 2015-05-31 2015-05-31 [facility] pack-years 00:00:00 00:00:00 Medical Branch Tobacco use and 2015-05-31 2015-05-31 Never used [facility] exposure 00:00:00 00:00:00 Medical Branch History of tobacco 1982-10-20 2007-10-20 Smoker [facility] use 00:00:00 00:00:00 Medical [place] Sex [birth year] [facility] 00:00:00 00:00:00 Medical Branch Smoking Status Start Date Stop Date Source Former smoker 2015-05-31 00:00:00 2015-05-31 00:00:00 [facility] Medical Branch Medications Ordered Filled Start Stop Current Ordering Indication Dosage Frequency Signature Comments Components Source Medication Medication Date Date Medication? Clinician (SIG) Name Name triamcinsarah 2021- No [id number] 40mg [facility] 09-30 ity of acetonide 00:00: 23:00 [place] (KENALOG) 00 :00 Medical injection Branch 40 mg triamcinolo 2021- No [id number] 40mg 40 mg, [facility] 09-30 Intra-jerome ity of acetonide 00:00: 23:00 [facility] [place] (KENALOG) 00 :00 ONCE, 1 Medical injection dose, On Branch 40 mg 09/29/21 at 1800, Routine semaglutide 2020-09 Yes [id number] Inject Univers (OZEMPIC) 2-01 0.25 mg ity of 0.25 mg or 00:00: [place] the [place] 0.5 mg(2 00 skin Medical mg/1.5 mL) weekly. Branch PnIj metformin 2020-09 Yes [id number] 500mg Take 1 U nivers ER 500 mg 2-01 tablet by ity o f 24 hr 00:00: mouth [place] tablet 00 daily with Medical breakfast. Branch STOP REGULAR METFORMIN. omeprazole 2020-09 Yes [id number] 20mg Take 1 Univers 20 mg 2-01 capsule by ity of capsule 00:00: mouth [place] 00 daily. Medical Branch semaglutide 2020-09 Yes [id number] Inject Univers (OZEMPIC) 2-01 0.25 mg ity of 0.25 mg or 00:00: under the [place] 0.5 mg(2 00 skin Medical mg/1.5 mL) weekly. Branch PnIj metformin 2020-09 Yes [id number] 500mg Take 1 U nivers ER 500 mg 2-01 tablet by ity o f 24 hr 00:00: mouth [place] tablet 00 daily with Medical breakfast. Branch STOP REGULAR METFORMIN. omeprazole 2020-09 Yes [id number] 20mg Take 1 Univers 20 mg 2-01 capsule by ity of capsule 00:00: mouth [place] 00 daily. Medical Branch losartan 50 2020-09 Yes [id number] 50mg Take 1 Univers mg tablet 1-09 tablet by ity o f 00:00: mouth 2 [place] 00 (two) Medical times Branch daily. clotrimazol 2020-09 Yes [id number] Apply to Univers e-betametha 1-09 area(s) 2 ity of sone cream 00:00: (two) [place] 00 times Medical daily. Branch cyclobenzap 2020-09 Yes [id number] TAKE 1 Univers rine 5 mg 1-09 TABLET BY ity o f tablet 00:00: MOUTH [place] 00 EVERY 8 Medical HOURS Branch NEEDED citalopram 2020-09 Yes [id number] 40mg Take 1 U nivers 40 mg 1-09 tablet by ity of tablet 00:00: mouth [place] 00 daily. Medical Branch econazole 2020-09 Yes [id number] Apply to Univers nitrate 1 % 1-09 area(s) 2 ity of cream 00:00: (two) [place] 00 times Medical daily. Branch albuterol 2020-09 Yes [id number] 2{puff} Inhale 2 Univers (PROAIR 1-09 Puffs ity of HFA) 90 00:00: every 6 [place] mcg/actuati 00 (six) Medical on inhaler hours as Branc h needed for Wheezing or Shortness of Breath. triamcinolo 2020-09 Yes [id number] Apply to Univers ne 0.025 % 09 area(s) 3 ity of ointment 00:00: (three) [place] 00 times Medical daily. For Branch itching mirabegron 2020-09 Yes [id number] 50mg Take 1 Univers (MYRBETRIQ) 1-09 tablet by ity of 50 mg 00:00: mouth [place] tablet 00 daily. Medical Branch diltiazem 2020-09 Yes [id number] 120mg Take 1 U nivers (CARTIA XT) -09 capsule by it y of 120 mg 24 00:00: mouth 2 [place] hr capsule 00 (two) Medical times Branch daily. busPIRone 2020-09 Yes [id number] 20mg Take 2 Un jerrod 10 mg - tablets by ity of tablet 00:00: mouth 2 [place] 00 (two) Medical times Branch daily. blood sugar 2020-09 Yes [id number] Use twice Univers diagnostic -09 a day for ity of (ONETOUCH 00:00: ICD CODE [place] VERIO TEST 00 E11.65 Medical STRIPS) Branch strip lancets 2020-09 Yes [id number] Use twice U nivers (ONE TOUCH -09 a day for ity of DELICA) 33 00:00: ICD code [place] as gauge Misc 00 E11.65 Medical Branch pregabalin 2020-09 Yes [id number] 150mg Take 1 Univers 150 mg 10-04 capsule by ity of capsule 00:00: mouth 3 [place] 00 (three) Medical times Branch daily. amitriptyli 2020-09 Yes [id number] 100mg Take 2 Univers ne 50 mg -09 tablets by ity o f tablet 00:00: mouth at [place] 00 bedtime. Medical Branch diclofenac 2020-09 Yes [id number] 75mg Take 1 Univers 75 mg EC -09 tablet by ity of tablet 00:00: mouth 2 [place] 00 (two) Medical times Branch daily with meals as needed for Pain. USE SPARINGLY DUE TO POSSIBLE SIDE EFFECTS. rosuvastati 2020-09 Yes [id number] 10mg Take 1 Univers n 10 mg -09 tablet by ity of tablet 00:00: mouth at [place] 00 bedtime. Medical Branch cyanocobala 2020-09 Yes [id number] 1000ug 1 mL by Univers min 1,000 09 Intramuscu ity of mcg/mL 00:00: lar route [place] injection 00 every 2 Medical (two) Branch weeks. Insulin 2020-09 Yes [id number] Use as Univ ers [place], -09 directed ity of Disposable, 00:00: to inject [place] (PEN 00 Ozempic Medical NEEDLE) 32 once Branch gauge x weekly " Ndle levothyroxi 2020-09 Yes [id number] 50ug Take 1 Univers ne 50 mcg 09 tablet by ity o f tablet 00:00: mouth [place] 00 every Medical morning. Branch fluticasone 2020-09 Yes [id number] 2{puff} Inhale 2 Univers propionate - Puffs ity of (FLOVENT 00:00: every 12 [place] HFA) 110 00 (twelve) Medical mcg/actuati hours. Branch on inhaler Rinse mouth after each use. levalbutero 2020-09 Yes [id number] .63mg Inhale Univers l 0.63 mg/3 09 0.63 mg 3 ity of mL 00:00: (three) [place] nebulizer 00 times Medical solution daily as Branch needed for Wheezing or Shortness of Breath. losartan 50 2020-09 Yes [id number] 50mg Take 1 Univers mg tablet 10-04 tablet by ity o f 00:00: mouth 2 [place] 00 (two) Medical times Branch daily. clotrimazol 2020-09 Yes [id number] Apply to Univers e-betametha 10-04 area(s) 2 ity of sone cream 00:00: (two) [place] 00 times Medical daily. Branch cyclobenzap 2020-09 Yes [id number] TAKE 1 Univers rine 5 mg 09 TABLET BY ity o f tablet 00:00: MOUTH [place] 00 EVERY 8 Medical HOURS Branch NEEDED citalopram 2020-09 Yes [id number] 40mg Take 1 U nivers 40 mg -09 tablet by ity of tablet 00:00: mouth [place] 00 daily. Medical Branch econazole 2020-09 Yes [id number] Apply to Univers nitrate 1 % 09 area(s) 2 ity of cream 00:00: (two) [place] 00 times Medical daily. Branch albuterol 2020-09 Yes [id number] 2{puff} Inhale 2 Univers (PROAIR 1-09 Puffs ity of HFA) 90 00:00: every 6 [place] mcg/actuati 00 (six) Medical on inhaler hours as Branc h needed for Wheezing or Shortness of Breath. triamcinolo 2020-09 Yes [id number] Apply to Univers ne 0.025 % -09 area(s) 3 ity of ointment 00:00: (three) [place] 00 times Medical daily. For Branch itching mirabegron 2020-09 Yes [id number] 50mg Take 1 Univers (MYRBETRIQ) -09 tablet by ity of 50 mg 00:00: mouth [place] tablet 00 daily. Medical Branch diltiazem 2020-09 Yes [id number] 120mg Take 1 U nivers (CARTIA XT) - capsule by it y of 120 mg 24 00:00: mouth 2 [place] hr capsule 00 (two) Medical times Branch daily. busPIRone 2020-09 Yes [id number] 20mg Take 2 Un jerrod 10 mg - tablets by ity of tablet 00:00: mouth 2 [place] 00 (two) Medical times Branch daily. blood sugar 2020-09 Yes [id number] Use twice Univers diagnostic 1-09 a day for ity of (ONETOUCH 00:00: ICD CODE [place] VERIO TEST 00 E11.65 Medical STRIPS) Branch strip lancets 2020-09 Yes [id number] Use twice U nivers (ONE TOUCH 1-09 a day for ity of DELICA) 33 00:00: ICD code [place] as gauge Misc 00 E11.65 Medical Branch pregabalin 2020-09 Yes [id number] 150mg Take 1 Univers 150 mg -09 capsule by ity of capsule 00:00: mouth 3 [place] 00 (three) Medical times Branch daily. amitriptyli 2020-09 Yes [id number] 100mg Take 2 Univers ne 50 mg 1-09 tablets by ity o f tablet 00:00: mouth at [place] 00 bedtime. Medical Branch diclofenac 2020-09 Yes [id number] 75mg Take 1 Univers 75 mg EC -09 tablet by ity of tablet 00:00: mouth 2 [place] 00 (two) Medical times Branch daily with meals as needed for Pain. USE SPARINGLY DUE TO POSSIBLE SIDE EFFECTS. rosuvastati 2020-09 Yes [id number] 10mg Take 1 Univers n 10 mg 09 tablet by ity of tablet 00:00: mouth at [place] 00 bedtime. Medical Branch cyanocobala 2020-09 Yes [id number] 1000ug 1 mL by Univers min 1,000 -09 Intramuscu ity of mcg/mL 00:00: lar route [place] injection 00 every 2 Medical (two) Branch weeks. Insulin 2020-09 Yes [id number] Use as Univ ers [place], 10-04 directed ity of Disposable, 00:00: to inject [place] (PEN 00 Ozempic Medical NEEDLE) 32 once Branch gauge x weekly " Ndle levothyroxi 2020-09 Yes [id number] 50ug Take 1 Univers ne 50 mcg 10-04 tablet by ity o f tablet 00:00: mouth [place] 00 every Medical morning. Branch fluticasone 2020-09 Yes [id number] 2{puff} Inhale 2 Univers propionate -09 Puffs ity of (FLOVENT 00:00: every 12 [place] HFA) 110 00 (twelve) Medical mcg/actuati hours. Branch on inhaler Rinse mouth after each use. levalbutero 2020-09 Yes [id number] .63mg Inhale Univers l 0.63 mg/3 -09 0.63 mg 3 ity of mL 00:00: (three) [place] nebulizer 00 times Medical solution daily as Branch needed for Wheezing or Shortness of Breath. Blood-Gluco Yes [id number] Use twice Univers se Meter 6-14 a day for ity of (ONETOUCH 00:00: ICD CODE [place] VERIO FLEX 00 E11.65 Medical START) Kit Branch Lancing Yes [id number] To use Univ ers Device with 6-14 twice a ity o f Lancets 00:00: day for [place] (ONE TOUCH 00 ICD code Medic al DELICA) Kit E11.65 Branch Blood-Gluco Yes [id number] Use twice Univers se Meter 6-14 a day for ity of (ONETOUCH 00:00: ICD CODE [place] VERIO FLEX 00 E11.65 Medical START) Kit Branch Lancing Yes [id number] To use Univ ers Device with 6-14 twice a ity o f Lancets 00:00: day for [place] (ONE TOUCH 00 ICD code Medic al DELICA) Kit E11.65 Branch BIOTIN ORAL 0 Yes Take by Un jerrod 4-30 mouth. ity of 13:07: Medical Branch BIOTIN ORAL 0 Yes Take by Un jerrod 4-30 mouth. ity of 13:07: 07 Medical Branch METHYLCELLU 2020-0 Yes Univer s LOSE (FIBER 4-30 ity of THERAPY 13:07: [facility]) 06 Medical Branch DOCUSATE 0 Yes Take by Unive rs SODIUM 4-30 mouth. ity of (COLACE 13:07: [place] ORAL) 06 Medical Branch vitamin C Yes 1000mg Take 1,000 Univers with derrell 4-30 mg by ity of hips 13:07: mouth [place] (VITAMIN C) 06 daily. Medica l 1,000 mg Branch tablet cholecalcif 0 Yes 1000U Take 1,000 Univers edmar, 4-30 Units by ity of vitamin D3, 13:07: mouth [place] (VITAMIN 06 daily. Medical D3) 1,000 Branch unit tablet CRANBERRY 0 Yes Take by Univ ers FRUIT 4-30 mouth ity of EXTRACT 13:07: daily. [place] (CRANBERRY 06 Medical ORAL) Branch CALCIUM 0 Yes Take by Univer s ORAL 4-30 mouth ity of 13:07: daily. [place] Medical Branch DOCOSAHEXAN Yes 1000mg Take 1,000 Univers OIC 4-30 mg by ity of ACID/EPA 13:07: mouth [place] (FISH OIL 06 daily. Medical ORAL) Branch METHYLCELLU 0 Yes Univer s LOSE (FIBER 4-30 ity of THERAPY 13:07: [facility]) 06 Medical Branch DOCUSATE 0 Yes Take by Unive rs SODIUM 4-30 mouth. ity of (COLACE 13:07: [place] ORAL) Medical Branch vitamin C 0 Yes 1000mg Take 1,000 Univers with derrell 4-30 mg by ity of hips 13:07: mouth [place] (VITAMIN C) 06 daily. Medica l 1,000 mg Branch tablet cholecalcif 2020-0 Yes 1000U Take 1,000 Univers edmar, 4-30 Units by ity of vitamin D3, 13:07: mouth [place] (VITAMIN 06 daily. Medical D3) 1,000 Branch unit tablet CRANBERRY Yes Take by [facility] ers FRUIT 4-30 mouth ity of EXTRACT 13:07: daily. [place] (CRANBERRY Medical ORAL) Branch CALCIUM Yes Take by Univer s ORAL 4-30 mouth ity of 13:07: daily. [place] Medical Branch DOCOSAHEXAN Yes 1000mg Take 1,000 Univers OIC 4-30 mg by ity of ACID/EPA 13:07: mouth [place] (FISH OIL 06 daily. Medical ORAL) Branch FOLIC ACID Yes Take by Uni vers ORAL 4-30 mouth ity of 13:07: daily. [address] Branch MULTIVIT Yes Take by Unive rs &MINERALS/F 4-30 mouth. ity of ERROUS FUM 13:07: [place] ([place] [address] Medical VITAMIN Branch ORAL) FOLIC ACID Yes Take by Uni vers ORAL 4-30 mouth ity of 13:07: daily. [address] Branch MULTIVIT Yes Take by Unive rs &MINERALS/F 4-30 mouth. ity of ERROUS FUM 13:07: [place] ([place] [address] Medical VITAMIN Branch ORAL) proMETHazin 2019-09 Yes TAKE 1 Univ ers e 25 mg 0-22 TABLET BY ity of tablet 00:00: MOUTH [place] 00 EVERY 6 Medical HOURS Branch NEEDED FOR NAUSEA proMETHazin 2019-09 Yes TAKE 1 Univ ers e 25 mg 0-22 TABLET BY ity of tablet 00:00: MOUTH 00 EVERY 6 Medical HOURS Branch NEEDED FOR NAUSEA Ginkgo Yes Univers [place] 120 1-16 ity of mg Tab 00:00: [place] 00 Medical Branch Ginkgo 2018- Yes Univers [place] 120 1-16 ity of mg Tab 00:00: [place] 00 Medical Branch FERROUS Yes [id number] TAKE ONE Uni vers SULFATE 325 8-13 TABLET BY ity of mg (65 mg 00:00: MOUTH [place] iron) 00 THREE Medical tablet TIMES Branch DAILY WITH MEALS FERROUS Yes [id number] TAKE ONE Uni vers SULFATE 325 8-13 TABLET BY ity of mg (65 mg 00:00: MOUTH [place] iron) 00 THREE Medical tablet TIMES Branch DAILY WITH MEALS coQ10, Yes [id number] 1{capsu Take 1 U nivers ubiquinol, 1-16 le} capsule by ity of 100 mg Cap 00:00: mouth [place] 00 daily. [facility] coQ10, 2018-0 Yes [id number] 1{capsu Take 1 U nivers ubiquinol, 1-16 le} capsule by ity of 100 mg Cap 00:00: mouth [place] 00 daily. [facility] loratadine 2016- Yes [id number] 10mg Take 1 Univers 10 mg 1-23 tablet by ity of tablet 00:00: mouth [place] 00 daily. [facility] loratadine 2017 Yes [id number] 10mg Take 1 Univers 10 mg 1-23 tablet by ity of tablet 00:00: mouth [place] 00 daily. [facility] Immunizations Ordered Immunization Filled Immunization Date Status Commen ts Source Name Name SARS-COV-2 COVID-19 2021-07-23 Completed Unive rsity of PFIZER VACCINE 00:00:00 [facility] SARS-COV-2 COVID-19 2021-07-23 Completed Unive rsity of PFIZER VACCINE 00:00:00 [facility] Influenza Virus 2021-05-27 Completed Universit y of Vaccine (3+ yrs) 00:00:00 [facility] Influenza Virus 2021-05-27 Completed Universit y of Vaccine (3+ yrs) 00:00:00 [facility] SARS-COV-2 COVID-19 2020-12-13 Completed Unive rsity of PFIZER VACCINE 00:00:00 [facility] SARS-COV-2 COVID-19 2020-12-13 Completed Unive rsity of PFIZER VACCINE 00:00:00 [facility] SARS-COV-2 COVID-19 2020-11-22 Completed Unive rsity of PFIZER VACCINE 00:00:00 [facility] SARS-COV-2 COVID-19 2020-11-22 Completed Unive rsity of PFIZER VACCINE 00:00:00 [facility] Influenza Virus 2020-05-27 Completed Universit y of Vaccine Recomb Quad 00:00:00 [place] Medical IM, Preserv and ABX Branc h Free 18-64 YRS Influenza Virus 2020-05-27 Completed Universit y of Vaccine Recomb Quad 00:00:00 [place] Medical IM, Preserv and ABX Branc h Free 18-64 YRS Pneumococcal 2019-08-10 Completed University o f Polysaccharide, 00:00:00 [facility] ical PPSV23 (PNEUMOVAX) Branch TDAP (ADACEL) VACCINE 2019-08-10 Completed Uni versity of 00:00:00 [facility] TDAP 2019-08-10 Completed University of 00:00:00 [facility] Pneumococcal 2019-08-10 Completed University o f Polysaccharide, 00:00:00 [facility] ical PPSV23 (PNEUMOVAX) Branch TDAP (ADACEL) VACCINE 2019-08-10 Completed Uni versity of 00:00:00 [facility] TDAP 2019-08-10 Completed University of 00:00:00 [facility] Influenza Virus 2019-07-04 Completed Universit y of Vaccine 00:00:00 [facility] Influenza Virus 2019-07-04 Completed Universit y of Vaccine Recomb Quad 00:00:00 [place] Medical IM, Preserv and ABX Branc h Free 18-64 [facility] Influenza Virus 2019-07-04 Completed Universit y of Vaccine 00:00:00 [facility] Influenza Virus 2019-07-04 Completed Universit y of Vaccine Recomb Quad 00:00:00 [place] Medical IM, Preserv and ABX Branc h Free 18-64 YRS Influenza Virus 2018-06-30 Completed Universit y of Vaccine Quad IM 3+ 00:00:00 [facility] Influenza Virus 2018-06-30 Completed [facility] Vaccine Quad IM 3+ 00:00:00 [facility] Influenza Virus 2017-06-15 Completed [facility]it y of Vaccine Quad ID [id number] 00:00:00 Emanuel as [facility] Influenza Virus 2017-06-15 Completed Universit y of Vaccine Quad ID [id number] 00:00:00 Emanuel as [facility] Influenza Virus 2016-08-05 Completed [facility]it y of Vaccine Quad IM 00:00:00 [place] [facility] Multi-dose 6+ [facility] Branch Influenza Virus 2016-08-05 Completed [facility]it y of Vaccine Quad IM 00:00:00 [place] [facility] Multi-dose 6+ [place] Branch Pneumococcal 13 2016-03-07 Completed Universit y of Conjugate, PCV13 00:00:00 [facility] dical (Prevnar 13) Branch Meningococcal B, OMV 2016-03-07 Completed Univ ersity of 00:00:00 [facility] Pneumococcal 13 2016-03-07 Completed Universit y of Conjugate, PCV13 00:00:00 [facility] dical (Prevnar 13) Branch Meningococcal B, OMV 2016-03-07 Completed Univ ersity of 00:00:00 [facility] Heamophilus Influenza 2015-11-13 Completed Uni versity of B 00:00:00 [facility] Heamophilus Influenza 2015-11-13 Completed Uni versity of B 00:00:00 [facility] Meningococcal 2015-11-12 Completed University of Polysaccharide 00:00:00 [place] [facility] (groups A, C, Y and Branc h W-135) conjugate vaccine (MCV4P) Meningococcal 2015-11-12 Completed University of Polysaccharide 00:00:00 [place] [facility] (groups A, C, Y and Branc h W-135) conjugate vaccine (MCV4P) TDAP 2015-10-31 Completed University of 00:00:00 [facility] TDAP 2015-10-31 Completed University of 00:00:00 [facility] Pneumococcal 2014-04-01 Completed University o f Polysaccharide, 00:00:00 [facility] ical PPSV23 (PNEUMOVAX) [place]ws Pneumococcal 2014-04-01 Completed University o f Polysaccharide, 00:00:00 [facility] ical PPSV23 (PNEUMOVAX) [place] Vital Signs Vital Name Observation Time Observation Value Comments Source Body height 2021-09-29 22:11:00 157.5 cm General acute hospital Body weight 2021-09-29 22:11:00 97.523 kg General acute hospital BMI 2021-09-29 22:11:00 39.32 kg/m2 General acute hospital Procedures This patient has no known procedures. Encounters Start End Encounter Admission Attending Care Care Encounter Source Date/Time Date/Time Type Type Clinicians Facility Department ID 2021-09-29 2021-09-29 Outpatient R [facility] [id number] [facility] 16:14:01 23:59:00 CAPRICE flores [facility] 2021-09-29 2021-09-29 [facility] [place] [facility] [id number] Univers 16:14:01 23:59:00 Encounter Caprice Fleming [facility] [id number] Ayesha [id number] Emanuel as JOLYL?BLEA [id number] La gabi CHAIREZ 809 [facility] 2021-09-29 2021-09-29 [facility] [id number] Univers 16:00:00 16:58:02 Visit [facility] [id number] Geronimo [id number] Emanuel as JOLLY?BLEA [id number] La dicroshan CHAIREZ 198 [facility] 2021-08-04 2021-08-04 Outpatient Brock [facility] [id number] Univers 15:30:00 15:42:52 WONDIFUL ity o f [facility] 2021-07-10 2021-07-10 Outpatient Kautz_S [facility] [id number] [facility] 05:13:00 05:13:00 [facility] 2021-05-09 2021-05-09 Outpatient DMG G [id number] [facility] 11:00:00 11:00:00 0814 [facility] 2021-05-07 2021-05-07 Outpatient DMG [facility] [id number] [facility] 12:00:00 12:00:00 0812 [facility] 2021-02-25 2021-02-25 [facility] [id number] 00:00:00 00:00:00 Ricardo De León [id number] [place] [id number] [place] [phone] [facility] 059 Building Results This patient has no known results.
[2021-10-06] MEDS ORDERED: HYDROCODONE/APAP 5/325 MG TAB ONE (03:35)
--- NOTE | 2021-10-06 03:52 | ER ---
Nurse's Notes [facility] Name: Linda Rahman Age: 46 yrs Sex: Female : 1975 Arrival Date: 10/06/2021 Time: 02:28 Bed 12 Private MD: Diagnosis: Pain in left knee;Sprain of other specified parts of left knee Presentation: 10/06 02:55 Chief complaint: Patient states: she was walking to get her dog out of it's cage and bb her left knee went "out" on her at approx 1700 last night. Coronavirus screen: At this time, the client does not indicate any symptoms associated with coronavirus-19. Ebola Screen: No symptoms or risks identified at this time. Initial Sepsis Screen: Does the patient meet any 2 criteria? No. Patient's initial sepsis screen is negative. Does the patient have a suspected source of infection? No. Patient's initial sepsis screen is negative. Risk Assessment: Do you want to hurt yourself or someone else? Patient reports no desire to harm self or others. Onset of symptoms was October 05, 2021. 02:55 Method Of Arrival: EMS 02:55 Acuity: HOLLEY 4 bb Triage Assessment: 03:02 General: Appears in no apparent distress. obese, Behavior is calm, cooperative. Pain: bb Complains of pain in left knee Pain currently is 9 out of 10 on a pain scale. Neuro: Level of Consciousness is awake, alert, obeys commands, Oriented to person, place, time, situation. Cardiovascular: Capillary refill is > 3 seconds Patient's skin is warm and dry. Respiratory: Respiratory effort is even, unlabored, Respiratory pattern is regular. GI: No signs and/or symptoms were reported involving the gastrointestinal system. Derm: Skin is pink, warm \\T\\ dry. Musculoskeletal: Circulation, motion, and sensation intact. Reports pain in left knee. 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 - Social history:: Smoking status: Patient denies any tobacco usage or history of. - Family history:: not pertinent. Screenin:03 Abuse screen: Denies threats or abuse. Nutritional screening: No deficits noted. bb Tuberculosis screening: No symptoms or risk factors identified. Fall Risk None identified. Assessment: 03:03 Reassessment: No changes from previously documented assessment. Patient is alert, bb oriented x 3, equal unlabored respirations, skin warm/dry/pink. 04:08 Reassessment: Patient is alert, oriented x 3, equal unlabored respirations, skin bb warm/dry/pink. pt verbalized understanding of and agrees to plan of care discharge instructions given pt assisted to exit via wheelchair accompanied by family. Vital Signs: 02:57 BP 148 / 82; Pulse 92; Resp 18 S; Temp 97.5(O); Pulse Ox 99% on R/A; Weight 97.52 kg bb (R); Height 5 ft. 2 in. (157.48 cm) (R); Pain 9/10; 02:57 Body Mass Index 39.32 (97.52 kg, 157.48 cm) bb ED Course: 02:28 Patient arrived in ED. wm 02:56 Triage completed. bb 02:56 Arm band placed on Patient placed in an exam room, Patient notified of wait time. bb 03:03 Patient has correct armband on for positive identification. bb 03:26 Young Hernandez MD is Attending Physician. yuridia 03:42 Knee Left 3 View XRAY In Process Unspecified. EDMS 03:50 Kev Ocasio MD is Referral Physician. yuridia 04:07 Chelsea Rosenthal, RN is Primary Nurse. bb 04:09 No provider procedures requiring assistance completed. Patient did not have IV access bb during this emergency room visit. Administered Medications: 03:32 Drug: HYDROcodone-acetaminophen 5 mg-325 mg 1 tabs Route: PO; bb 04:08 Follow up: Response: No adverse reaction; Pain is decreased; RASS: Alert and Calm (0) bb Outcome: 03:51 Discharge ordered by . yuridia 04:09 Discharged to home via wheelchair, with family. bb 04:09 Condition: stable 04:09 Discharge instructions given to patient, Instructed on discharge instructions, follow up and referral plans. medication usage, Demonstrated understanding of instructions, follow-up care, medications, Prescriptions given X 1. 04:09 Patient left the ED. bb Signatures: Dispatcher MedHoYoung Chavarria MD MD cha Ballard, Brenda, RN RN bb Marsh, Wendy wm
--- NOTE | 2021-10-06 03:52 | EDPHYS ---
Physician Documentation [facility] Name: Linda Rahman Age: 46 yrs Sex: Female : 1975 Arrival Date: 10/06/2021 Time: 02:28 Bed 12 Private MD: ALEXA Physician Young Hernandez HPI: 10/06 03:45 This 46 yrs old Female presents to ER via EMS with complaints of Knee Pain - yuridia LEFT. 03:45 The patient presents with decreased range of motion, an injury. The complaints affect yuridia the left knee. Context: The problem was sustained at home, resulted from a mis-step, the patient can fully bear weight, the patient is able to ambulate. Onset: The symptoms/episode began/occurred yesterday. Modifying factors: The symptoms are alleviated by elevating leg, remaining still, the symptoms are aggravated by movement, weight bearing, bending knee. Associated signs and symptoms: The patient has no apparent associated signs or symptoms. Treatment prior to arrival includes: rainer wrap. Severity of symptoms: At their worst the symptoms were mild, in the emergency department the symptoms have resolved. The patient has experienced similar episodes in the past, several times. 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 - Social history:: Smoking status: Patient denies any tobacco usage or history of. - Family history:: not pertinent. ROS: 03:45 Constitutional: Negative for fever, chills, and weight loss, Eyes: Negative for injury, yuridia pain, redness, and discharge, ENT: Negative for injury, pain, and discharge, Neck: Negative for injury, pain, and swelling, Cardiovascular: Negative for chest pain, palpitations, and edema, Respiratory: Negative for shortness of breath, cough, wheezing, and pleuritic chest pain, Abdomen/GI: Negative for abdominal pain, nausea, vomiting, diarrhea, and constipation, Back: Negative for injury and pain, : Negative for injury, bleeding, discharge, and swelling, MS/Extremity: Negative for injury and deformity, Skin: Negative for injury, rash, and discoloration, Neuro: Negative for headache, weakness, numbness, tingling, and seizure, Psych: Negative for depression, anxiety, suicide ideation, homicidal ideation, and hallucinations, Allergy/Immunology: Negative for hives, rash, and allergies, Endocrine: Negative for neck swelling, polydipsia, polyuria, polyphagia, and marked weight changes, Hematologic/Lymphatic: Negative for swollen nodes, abnormal bleeding, and unusual bruising. 03:45 Constitutional: Positive for 03:45 MS/extremity: Positive for decreased range of motion, pain, tenderness, of the left knee. Exam: 03:45 Constitutional: This is a well developed, well nourished patient who is awake, alert, yuridia and in no acute distress. Head/Face: Normocephalic, atraumatic. Eyes: Pupils equal round and reactive to light, extra-ocular motions intact. Lids and lashes normal. Conjunctiva and sclera are non-icteric and not injected. Cornea within normal limits. Periorbital areas with no swelling, redness, or edema. ENT: Nares patent. No nasal discharge, no septal abnormalities noted. Tympanic membranes are normal and external auditory canals are clear. Oropharynx with no redness, swelling, or masses, exudates, or evidence of obstruction, uvula midline. Mucous membranes moist. Neck: Trachea midline, no thyromegaly or masses palpated, and no cervical lymphadenopathy. Supple, full range of motion without nuchal rigidity, or vertebral point tenderness. No Meningismus. Chest/axilla: Normal chest wall appearance and motion. Nontender with no deformity. No lesions are appreciated. Cardiovascular: Regular rate and rhythm with a normal S1 and S2. No gallops, murmurs, or rubs. Normal PMI, no JVD. No pulse deficits. Respiratory: Lungs have equal breath sounds bilaterally, clear to auscultation and percussion. No rales, rhonchi or wheezes noted. No increased work of breathing, no retractions or nasal flaring. Abdomen/GI: Soft, non-tender, with normal bowel sounds. No distension or tympany. No guarding or rebound. No evidence of tenderness throughout. Back: No spinal tenderness. No costovertebral tenderness. Full range of motion. Skin: Warm, dry with normal turgor. Normal color with no rashes, no lesions, and no evidence of cellulitis. Neuro: Awake and alert, GCS 15, oriented to person, place, time, and situation. Cranial nerves II-XII grossly intact. Motor strength 5/5 in all extremities. Sensory grossly intact. Cerebellar exam normal. Normal gait. Psych: Awake, alert, with orientation to person, place and time. Behavior, mood, and affect are within normal limits. 03:45 Musculoskeletal/extremity: Extremities: noted in the left knee: decreased ROM, pain. Vital Signs: 02:57 BP 148 / 82; Pulse 92; Resp 18 S; Temp 97.5(O); Pulse Ox 99% on R/A; Weight 97.52 kg bb (R); Height 5 ft. 2 in. (157.48 cm) (R); Pain 9/10; 02:57 Body Mass Index 39.32 (97.52 kg, 157.48 cm) bb MDM: 03:26 Patient medically screened. yuridia 03:49 Differential diagnosis: closed fracture, contusion, abrasion, tendonitis. Data yuridia reviewed: radiologic studies, plain films. Data interpreted: cafeteria monitor: not applicable for this patient encounter. rate is 92 beats/min, rhythm is regular. Test interpretation: by ED physician or midlevel provider: plain radiologic studies. Counseling: I had a detailed discussion with the patient and/or guardian regarding: the historical points, exam findings, and any diagnostic results supporting the discharge/admit diagnosis, radiology results, the need for outpatient follow up, for definitive care, a family practitioner, a orthopedic surgeon. 10/06 03:27 Order name: Knee Left 3 View XRAY [facility] 10/06 03:32 Order name: Rainer wrap-joint; Complete Time: 04:07 [facility] 10/06 03:32 Order name: Ice pack; Complete Time: 04:07 yuridia Administered Medications: 03:32 Drug: HYDROcodone-acetaminophen 5 mg-325 mg 1 tabs Route: PO; bb 04:08 Follow up: Response: No adverse reaction; Pain is decreased; RASS: Alert and Calm (0) bb Disposition Summary: 10/06/21 03:51 Discharge Ordered Location: Home yuridia Problem: new yuridia Symptoms: have improved yuridia Condition: Stable yuridia Diagnosis - Pain in left knee yuridia - Sprain of other specified parts of left knee yuridia Followup: yuridia - With: Private Physician - When: 2 - 3 days - Reason: Recheck today's complaints, Continuance of care, Re-evaluation by your physician Followup: yuridia - With: Kev Ocasio MD - When: 2 - 3 days - Reason: Recheck today's complaints, Continuance of care, Re-evaluation by your physician Discharge Instructions: - Discharge Summary Sheet yuridia - Joint Pain yuridia - Arthritis yuridia - Musculoskeletal Pain yuridia - Acute Knee Pain, Adult yuridia - How to Use Cold Therapy, [id number] yuridia - How to Use Cold Therapy yuridia - Joint Pain, [id number] [facility] Forms: - Medication Reconciliation Form [facility] - Thank You Letter yuridia - Antibiotic Education yuridia - Prescription Opioid Use [facility] Prescriptions: - Ibuprofen 600 mg Oral Tablet - take 1 tablet by ORAL route every 6 hours As needed take with food; 20 tablet; [facility] Refills: 0, Product Selection Permitted Signatures: Dispatcher [employer] Young Contreras MD MD cha Ballard, Brenda, RN RN bb
[2021-10-06 04:29] VITALS: BP 148/82; TEMP 97.5; O2SAT 99
--- NOTE | 2021-10-06 08:36 | RAD REPORT ---
EXAM DESCRIPTION: RAD - Knee Left 3 View - 10/06/2021 3:42 am CLINICAL HISTORY: PAIN COMPARISON: Knee Left 3 View dated 10/01/2017 FINDINGS: No fracture or dislocation is seen. Small amount of suprapatellar joint fluid.
== END 2021-10-06 04:09 | disposition home or self-care (01) ==
LOC: ER 02:27
DX: S83.8X2A Sprain of other specified parts of left knee, initial encounter (principal); E11.9 Type 2 diabetes mellitus without complications; Z88.1 Allergy status to other antibiotic agents; Z88.5 Allergy status to narcotic agent; Z88.8 Allergy status to other drugs, medicaments and biological substances
CPT/HCPCS: 99284

== ENCOUNTER 2021-10-18 03:27 | Emergency (ER) | payer OTHER ==
--- OUTSIDE RECORDS SUMMARY | 2021-10-18 03:31 | XMS REPORT | Continuity of Care Document ---
:1975 Author Organization [facility] t Address [address] [place] [address] Care Team Providers Name Role Phone Bryan PAULA Primary Care Physician Unavailable Jaymie CRUSHER AND BINDER OPERATOR, A Attending Clinician GRAMM, A Attending Clinician Unavailable Jessica_S Attending Clinician Unavailable Gomez HOLLINS, K.H. Attending Clinician Eladia Admitting Clinician Unavailable Payers Payer Name Policy Type Policy Number Effective Date Expiration Date S [facility] [id number] 2021 (MEDICARE 00:00:00 REPLACEMENT HMO) Advance Directives Directive Decision Effective Termination Comments Source Date Date Healthcare Agents on N/A [facility] FileNameRelationshipHealthcare of [place] Agent Medical RelationshipCommunicationDelpha Branch PriceMotherHealth Care [phone] (Mobile) Kei AgllonFatherFirst [facility] [phone] (Mobile) Problems Condition Condition Condition Status Onset Resolution Last Treating Co mments Source Name Details Category Date Date Treatment Clinician Date Indigestio Indigestio Disease Active 2020-09 Overview : Univers n n 2-15 Formattin ity of 00:00: g of this [place] 00 note Medical might be Branch different from the original. Added automatic ally from request for surgery [id number] Bloating Bloating Disease Active 2020-09 Overview: Un jerrod 2-15 Formattin ity of 00:00: g of this [place] 00 note Medical might be Branch different from the original. Added automatic ally from request for surgery [id number] Dental Dental Disease Active Univers caries caries [...] Intellectu Intellectu Disease Active U evelyn al roshan 9-14 [place] of [place] MJ MJ Disease Active Univers (obstructi (obstructi 7-18 it y of ve sleep ve sleep 00:00: [place] apnea) apnea) 00 Medical Branch Multiple Multiple Disease Active Unive rs thyroid thyroid 7-10 ity of nodules nodules 00:00: [place] [facility] Tremor Tremor Disease Active Univers 7-10 ity of 00:00: [place] [facility] Twitching Twitching Disease Active Uni vers 7-10 ity of 00:00: [place] [facility] Asthma, Asthma, Disease Active Univers mild mild 5-23 ity of persistent persistent 00:[place]: [place] [facility] [place] Fatty Fatty Disease Active Univers liver liver 3-24 ity of 00:00: [place] [facility] Hepatomega Hepatomega Disease Active U nivers ly ly 3-24 ity of 00:00: [place] [facility] Obesity Obesity Disease Active Univers (BMI (BMI 2-12 ity of 30-39.9) 30-39.9) 00:00: [place] [facility] Sinus Sinus Disease Active Univers tachycardi tachycardi 1-02 it y of a a 00:00: [place] [facility] Dyslipidem Dyslipidem Disease Active 2015-09 U nivers ia ia 1-22 ity of 00:00: [place] [facility] Vitamin Vitamin Disease Active 2015-09 [...] d d 2-05 ity of 00:00: [place] [facility] Branch Essential Essential Disease Active Uni vers hypertensi hypertensi 2-05 it y of on, benign on, benign [place] [facility] Well woman Well woman Disease Active U nivers exam exam 2-05 ity of 00:00: [place] [facility] Chest pain Chest pain Disease Active U nivers 9-13 ity of 00:00: [place] [facility] Peripheral Peripheral Disease Active U nivers neuropathy neuropathy it y of [facility] 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 ity of 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 Allergies, Adverse Reactions, Alerts Allergy Allergy Status Severity Reaction(s) Onset Inactive Treating Comm ents Source Name Type Date Date Clinician MILK DRUG Active Other-Cmnt Univer s INGREDI 8- ity of 00:00: [place] [facility] Branch Milk Propensi Active Other - See sneeze Uni vers ty to comments 8 ity of adverse 00:00: [place] reaction [facility] Branch TOMATO DRUG Active Low Other-Cmnt Univer s INGREDI 04-03 ity of 00:00: [place] [facility] Tomato Propensi Active Other - [...] adverse 00:00: [place] reaction Medical s Branch LORAZEPA DRUG Active High Swelling 2016-09 Univer s M INGREDI 0-02 ity of 00:00: [place] 00 Medical Branch Lorazepa Propensi Active Swelling 2016-09 Hard to Uni vers m ty to 0-02 swallow ity of adverse 00:00: [place] reaction Medical s Branch DIPHENHY DRUG Active High Swelling 2017-0 Univer s DRAMINE INGREDI 7-18 ity of HCL 00:00: [place] 00 Medical Branch Diphenhy Propensi Active Swelling Univ ers dramine ty to 718 ity of Hcl adverse 00:00: [place] reaction 00 Medical s Branch BENZONAT DRUG Active High Swelling Univer s ATE INGREDI 2 ity of 00:00: [place] 00 Medical Branch Benzonat Propensi Active Swelling 2017-0 Tightness U nivers ate ty to 2 in ity of adverse 00:00: throat, [place] reaction 00 difficult Medic al s to y Branch drug swallowin g and breathing MECLIZIN DRUG Active High Anaphylaxis 0 Uni vers E INGREDI 10-18 ity of 00:00: [place] 00 Medical Branch Meclizin Propensi Active Anaphylaxis 20170 U nivers e ty to 10-18 ity of adverse 00:00: [place] reaction 00 Medical s Branch MEPERIDI DRUG Active High Hallucinates Un jerrod NE HCL INGREDI 904 ity of 00:00: [place] 00 Medical Branch ZIPRASID DRUG Active High Hives Univers ONE HCL INGREDI 904 ity of 00:00: [place] 00 Medical Branch AMOXICIL DRUG Active Med Hives 0 Univers FRANCA INGREDI 9-04 ity of 00:00: [place] 00 Medical Branch Amoxicil Propensi Active Hives 0 Univer s franca ty to 9-04 ity of adverse 00:00: [place] reaction 00 Medical s Branch Meperidi Propensi Active Hallucinatio Univers ne Hcl ty to ns 904 ity of adverse 00:00: [place] reaction 00 Medical s Branch Ziprasid Propensi Active Hives 0 Univer s one Hcl ty to 904 ity of adverse 00:00: [place] reaction 00 Medical s Branch Social History Social Habit Start Date Stop Date Quantity Comments Source Exposure to Not sure [facility] SARS-CoV-2 (event) Medica l Branch Alcohol intake 2021-10-13 2021-10-13 0 /d [facility] 00:00:00 00:00:00 Medical Branch Cigarettes smoked 2015-05-31 2015-05-31 Univers ity of [place] current (pack per 00:00:00 00:00:00 Medical Branch day) - Reported Cigarette 2015-05-31 2015-05-31 [facility] pack-years 00:00:00 00:00:00 Medical Branch Tobacco use and 2015-05-31 2015-05-31 Never used [facility] exposure 00:00:00 00:00:00 Medical Branch History of tobacco 1982-10-20 2007-10-20 Smoker [facility] use 00:00:00 00:00:00 Medical Branch Sex [birth year] [facility] 00:00:00 00:00:00 Medical Branch Smoking Status Start Date Stop Date Source Former smoker 2015-05-31 00:00:00 2015-05-31 00:00:00 [facility] Medical Branch Medications Ordered Filled Start Stop Current Ordering Indication Dosage Frequency Signature Comments Components Source Medication Medication Date Date Medication? Clinician (SIG) Name Name mirabegron Yes [id number] 50mg Take 1 Univers (MYRBETRIQ) 1-18 tablet by ity of 50 mg 00:00: mouth [place] tablet 00 daily. Medical Branch semaglutide 2020-09 Yes [id number] Inject Univers (OZEMPIC) 2-01 0.25 mg ity of 0.25 mg or 00:00: [place] 0.5 mg(2 00 skin Medical mg/1.5 mL) weekly. Branch PnIj metformin 2020-09 Yes [id number] 500mg Take 1 U nivers ER 500 mg 2-01 tablet by ity o f 24 hr 00:00: mouth [place] tablet 00 daily with Medical breakfast. Branch STOP REGULAR METFORMIN. omeprazole 2020-09 Yes [id number] 20mg Take 1 Univers 20 mg 2-01 capsule by ity of capsule 00:00: mouth [place] 00 daily. Medical Branch pregabalin 2020-09 Yes [id number] 150mg Take 1 Univers 150 mg 1-09 capsule by ity of capsule 00:00: mouth 3 [place] 00 (three) Medical times Branch daily. amitriptyli 2020-09 Yes [id number] 100mg Take 2 Univers ne 50 mg 1-09 tablets by ity o f tablet 00:00: mouth at [place] 00 bedtime. Medical Branch diclofenac 2020-09 Yes [id number] 75mg Take 1 Univers 75 mg EC 1-09 tablet by ity of tablet 00:00: mouth 2 [place] 00 (two) Medical times Branch daily with meals as needed for Pain. USE SPARINGLY DUE TO POSSIBLE SIDE EFFECTS. rosuvastati 2020-09 Yes [id number] 10mg Take 1 Univers n 10 mg -09 tablet by ity of tablet 00:00: mouth at [place] 00 bedtime. Medical Branch cyanocobala 2020-09 Yes [id number] 1000ug 1 mL by Univers min 1,000 09 Intramuscu ity of mcg/mL 00:00: lar route [place] injection 00 every 2 Medical (two) Branch weeks. Insulin 2020-09 Yes [id number] Use as Univ ers [facility], 10-04 directed ity of Disposable, 00:00: to inject [place] (PEN 00 Ozempic Medical NEEDLE) 32 once Branch gauge x weekly " Ndle levothyroxi 2020-09 Yes [id number] 50ug Take 1 Univers ne 50 mcg -09 tablet by ity o f tablet 00:00: mouth [place] 00 every Medical morning. Branch fluticasone 2020-09 Yes [id number] 2{puff} Inhale 2 Univers propionate -09 Puffs ity of (FLOVENT 00:00: every 12 [place] HFA) 110 00 (twelve) Medical mcg/actuati hours. Branch on inhaler Rinse mouth after each use. levalbutero 2020-09 Yes [id number] .63mg Inhale Univers l 0.63 mg/3 -09 0.63 mg 3 ity of mL 00:00: (three) [place] nebulizer 00 times Medical solution daily as Branch needed for Wheezing or Shortness of Breath. losartan 50 2020-09 Yes [id number] 50mg Take 1 Univers mg tablet -09 tablet by ity o f 00:00: mouth 2 [place] 00 (two) Medical times Branch daily. clotrimazol 2020-09 Yes [id number] Apply to [facility] e-betametha 10-04 area(s) 2 ity of sone cream 00:00: (two) [place] 00 times Medical daily. Branch cyclobenzap 2020-09 Yes [id number] TAKE 1 Univers rine 5 mg 1-09 TABLET BY ity o f tablet 00:00: MOUTH [place] 00 EVERY 8 Medical HOURS Branch NEEDED citalopram 2020-09 Yes [id number] 40mg Take 1 U nivers 40 mg -09 tablet by ity of tablet 00:00: mouth [place] 00 daily. Medical Branch econazole 2020-09 Yes [id number] Apply to Univers nitrate 1 % 10-04 area(s) 2 ity of cream 00:00: (two) [place] 00 times Medical daily. Branch albuterol 2020-09 Yes [id number] 2{puff} Inhale 2 Univers (PROAIR - Puffs ity of HFA) 90 00:00: every 6 [place] mcg/actuati 00 (six) Medical on inhaler hours as Branc h needed for Wheezing or Shortness of Breath. triamcinolo 2020-09 Yes [id number] Apply to Univers ne 0.025 % 10-04 area(s) 3 ity of ointment 00:00: (three) [place] 00 times Medical daily. For Branch itching mirabegron 2020-09 Yes [id number] 50mg Take 1 Univers (MYRBETRIQ) 10-04 tablet by ity of 50 mg 00:00: mouth [place] tablet 00 daily. Medical Branch diltiazem 2020-09 Yes [id number] 120mg Take 1 U nivers (CARTIA XT) 10-04 capsule by it y of 120 mg 24 00:00: mouth 2 [place] hr capsule 00 (two) Medical times Branch daily. busPIRone 2020-09 Yes [id number] 20mg Take 2 Un jerrod 10 mg - tablets by ity of tablet 00:00: mouth 2 [place] 00 (two) Medical times Branch daily. blood sugar 2020-09 Yes [id number] Use twice Univers diagnostic 1-09 a day for ity of (ONETOUCH 00:00: ICD CODE [place] VERIO TEST E11.65 Medical STRIPS) Branch strip lancets 2020-09 Yes [id number] Use twice U nivers (ONE TOUCH 1-09 a day for ity of DELICA) 33 00:00: ICD code [place] as gauge Misc 00 E11.65 Medical Branch Blood-Gluco Yes [id number] Use twice Univers se Meter 6-14 a day for ity of (ONETOUCH 00:00: ICD CODE [place] VERIO FLEX E11.65 Medical START) Kit Branch Lancing Yes [id number] To use Univ ers Device with 6-14 twice a ity o f Lancets 00:00: day for [place] (ONE TOUCH 00 ICD code Medic al DELICA) Kit E11.65 Branch BIOTIN ORAL Yes Take by Un jerrod 4-30 mouth. ity of 13:07: [place] 07 Medical Branch METHYLCELLU Yes Univer s LOSE (FIBER 4-30 ity of THERAPY 13:07: [place] MISC) 06 Medical Branch DOCUSATE Yes Take by [facility] rs SODIUM 4-30 mouth. ity of (COLACE 13:07: [place] ORAL) 06 Medical Branch vitamin C Yes 1000mg Take 1,000 Univers with derrell 4-30 mg by ity of hips 13:07: mouth [place] (VITAMIN C) 06 daily. Medica l 1,000 mg Branch tablet cholecalcif Yes 1000U Take 1,000 Univers edmar, 4-30 Units by ity of vitamin D3, 13:07: mouth [place] (VITAMIN 06 daily. Medical D3) 1,000 Branch unit tablet CRANBERRY Yes Take by [facility] ers FRUIT 4-30 mouth ity of EXTRACT 13:07: daily. [place] (CRANBERRY 06 Medical ORAL) Branch CALCIUM Yes Take by [facility] Tyle[facility] s ORAL 4-30 mouth ity of 13:07: daily. [place] Medical Branch DOCOSAHEXAN Yes 1000mg Take 1,000 Univers OIC 4-30 mg by ity of ACID/EPA 13:07: mouth [place] (FISH OIL 06 daily. Medical ORAL) Branch FOLIC ACID Yes Take by Uni vers ORAL 4-30 mouth ity of 13:07: daily. [place] Medical Branch MULTIVIT Yes Take by [facility] rs &MINERALS/F 4-30 mouth. ity of ERROUS FUM 13:07: [place] (MULTI 05 Medical VITAMIN Branch ORAL) proMETHazin 2019-09 Yes TAKE 1 Univ ers e 25 mg 0-22 TABLET BY ity of tablet 00:00: MOUTH [place] 00 EVERY 6 Medical HOURS Branch NEEDED FOR NAUSEA Ginkgo Yes Univers [place] 120 1-16 ity of mg Tab 00:00: [place] 00 Medical Branch FERROUS 2018-0 Yes [id number] TAKE ONE Uni vers SULFATE 325 8-13 TABLET BY ity of mg (65 mg 00:00: MOUTH [place] iron) 00 THREE Medical tablet TIMES Branch DAILY WITH MEALS coQ10, Yes [id number] 1{capsu Take 1 U nivers ubiquinol, 1-16 le} capsule by ity of 100 mg Cap 00:00: mouth [place] 00 daily. [facility] loratadine Yes [id number] 10mg Take 1 Univers 10 mg 1-23 tablet by ity of tablet 00:00: mouth [place] 00 daily. [facility] Immunizations Ordered Immunization Filled Immunization Date Status Commen ts Source Name Name SARS-COV-2 COVID-19 2021-07-23 Completed Unive rsity of PFIZER VACCINE 00:00:00 [facility] Influenza Virus 2021-05-27 Completed Universit y of Vaccine (3+ yrs) 00:00:00 [facility] SARS-COV-2 COVID-19 2020-12-13 Completed Unive rsity of PFIZER VACCINE 00:00:00 [facility] SARS-COV-2 COVID-19 2020-11-22 Completed Unive rsity of PFIZER VACCINE 00:00:00 [facility] Influenza Virus 2020-05-27 Completed Universit y of Vaccine Recomb Quad 00:00:00 [facility] IM, Preserv and ABX Branc h Free 18-64 YRS Pneumococcal 2019-08-10 Completed University o f Polysaccharide, 00:00:00 [facility] ical PPSV23 (PNEUMOVAX) [place] TDAP (ADACEL) VACCINE 2019-08-10 Completed Uni versity of 00:00:00 [facility] TDAP 2019-08-10 Completed University of 00:00:00 [facility] Influenza Virus 2019-07-04 Completed Universit y of Vaccine 00:00:00 [facility] Influenza Virus 2019-07-04 Completed Universit y of Vaccine Recomb Quad 00:00:00 [facility] IM, Preserv and ABX Branc h Free 18-64 YRS Influenza Virus 2018-06-30 Completed Universit y of Vaccine Quad IM 3+ 00:00:00 [facility] ER Influenza Virus 2017-06-15 Completed Universit y of Vaccine Quad ID 18-64 00:00:00 [facility] Influenza Virus 2016-08-05 Completed Universit y of Vaccine Quad IM 00:00:00 [place] Med ical Multi-dose 6+ MO Branch Pneumococcal 13 2016-03-07 Completed Universit y of Conjugate, PCV13 00:00:00 [facility] dical (Prevnar 13) Branch Meningococcal B, OMV 2016-03-07 Completed Univ ersity of 00:00:00 [facility] Heamophilus Influenza 2015-11-13 Completed Uni versity of B 00:00:00 [facility] Meningococcal 2015-11-12 Completed University of Polysaccharide 00:00:00 [facility] (groups A, C, Y and Branc h W-135) conjugate vaccine (MCV4P) TDAP 2015-10-31 Completed University of 00:00:00 [facility] Pneumococcal 2014-04-01 Completed [place] o f Polysaccharide, 00:00:00 [facility] ical PPSV23 (PNEUMOVAX) [place] Vital Signs Vital Name Observation Time Observation Value Comments Source Systolic blood 2021-10-13 16:37:00 143 mm[Hg] Univer sity of pressure [facility] Diastolic blood 2021-10-13 16:37:00 91 [facility]Hg[facility] 2021-10-13 16:37:00 98 /min [facility] Body temperature 2021-10-13 16:35:00 35.67 Melissa [facility] Respiratory rate 2021-10-13 16:35:00 16 /min [facility] Body weight 2021-10-13 16:35:00 97.07 kg [facility] BMI 2021-10-13 16:35:00 39.14 kg/m2 [facility] Oxygen saturation in 2021-10-13 16:35:00 94 /min [facility] Arterial blood by [facility] Pulse oximetry Branch Procedures Procedure Date / Time Performed Performing Clinician Sour e POCT URINALYSIS AUTO 2021-10-13 16:30:00 Corry Shen [facility] Encounters Start End Encounter Admission Attending Care Care Encounter Source Date/Time Date/Time Type Type Clinicians Facility Department ID 2021-10-13 2021-10-13 Office IVETT Shen [id number] Univers 10:30:00 10:41:12 Visit Corry DE LEÓN [id number] mark anderson [place] [id number] Laura GUILLORYIO [id number] Sc dical NAL 204 [facility] 2021-10-13 2021-10-13 Outpatient R JAYMIE, [facility] [id number] Univers 10:30:00 10:41:12 CORRY flores [facility] 2021-07-10 2021-07-10 Outpatient Kautz_S [facility] [id number] Devoted 05:13:00 05:13:00 1015 [facility] l [facility] 2021-05-09 2021-05-09 Outpatient [facility] [id number] [facility] 11:00:00 11:00:00 0814 Medica l Group 2021-05-07 2021-05-07 Outpatient [facility] [id number] [facility] 12:00:00 12:00:00 0812 Medica l Group 2021-02-25 2021-02-25 [id number] 00:00:00 00:00:00 Ricardo De León [id number] Belinda [id number] Professio [id number] [address] Results Test Description Test Time Test Comments Results Result Comments Source POCT URINALYSIS, INSTRUMENT 2021-10-13 17:06:00 Test Item Value Reference Range Interpretation Comme nts POCT U SP GRAV (test code = 3255) 1.025 mg/dl 1.005-1.025 POCT PH U (test code = 3254) 6.0 mg/dl 5-8 POCT U LEUK EST (test code = 3263) Large Negative - Negative POCT U NIT (test code = 3262) Positive Negative - Negative POCT U PROT (test code = 3259) Negative - Negative POCT U GLU (test code = 3256) Negative Negative - Negative POCT U KETONE (test code = 3258) Trace Negative - Negative POCT U UROBILI (test code = 3260) 0.2 mg/dl 0.2-1 POCT U BILI (test code = 3261) Small Negative - Negative POCT U BLD (test code = 3257) Small Negative - Negative POCT U COLOR (test code = 3266) Yellow POCT U APPEAR (test code = 3267) Cloudy Lab Interpretation (test code = 02058-9) Abnormal [facility]
[2021-10-18] MEDS ORDERED: ONDANSETRON 4 MG/2 ML VIAL ONE (04:08)
[2021-10-18] MEDS ORDERED: FAMOTIDINE 20 MG/2 ML VIAL IV ONE (04:08)
[2021-10-18] MEDS ORDERED: NA CHLORIDE 0.9% 1,000 ML ONE (04:08)
[2021-10-18 04:12] LABS: Absolute Lymphocytes (CBC) 1.1 K/uL (0.7-4.9); Hematocrit 36.6 % (36.0-45.0); Lymphocytes % 21.6 % (15.3-44.8); RBC Red Blood Cell Count 4.12 M/uL (3.86-4.86)
[2021-10-18 04:18] LABS: Protime INR 0.94
[2021-10-18 04:20] LABS: Urine Blood Negative (Negative); Urine Glucose Negative (Negative); Urine Protein Negative (Negative)
[2021-10-18 04:33] LABS: Albumin 3.6 g/dL (3.4-5.0); Bilirubin Direct 0.2 mg/dL (0-0.2); Bilirubin Total 0.8 mg/dL (0.2-1.0); Magnesium 2.2 mg/dL (1.8-2.4); Potassium 3.5 mmol/L (3.5-5.1); Protein, Total 6.7 g/dL (6.4-8.2); Troponin High Sensitivity 10.9 pg/mL (<58.9)
[2021-10-18] MEDS ORDERED: CEFTRIAXONE 1000 MG/VIAL ONE (05:02)
--- NOTE | 2021-10-18 06:58 | ER ---
Nurse's Notes [facility] Name: Linda Rahman Age: 46 yrs Sex: Female : 1975 Arrival Date: 10/18/2021 Time: 03:29 Bed 27 Private MD: Diagnosis: Abdominal pain, Generalized;UTI/ Urinary tract infection, site not specified Presentation: 10/18 03:47 Chief complaint: Patient states: Upper abdominal pain x 1 month, reports scheduled lp1 endoscopy for 11/17/21; Denies N/V, fever. Coronavirus screen: At this time, the client does not indicate any symptoms associated with coronavirus-19. Ebola Screen: No symptoms or risks identified at this time. Initial Sepsis Screen: Does the patient meet any 2 criteria? No. Patient's initial sepsis screen is negative. Does the patient have a suspected source of infection? No. Patient's initial sepsis screen is negative. Risk Assessment: Do you want to hurt yourself or someone else? Patient reports no desire to harm self or others. Onset of symptoms was October 18, 2021. 03:47 Method Of Arrival: Ambulatory lp1 03:47 Acuity: HOLLEY 3 lp1 Triage Assessment: 06:57 General: Appears in no apparent distress. Behavior is calm, cooperative, appropriate sf1 for age. Pain: Complains of pain in right upper quadrant, left upper quadrant, right lower quadrant and left lower quadrant. GI: No deficits noted. 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 LMP N/A - Post-menopause lp1 Historical: - Allergies: 03:49 Geodon; lp1 03:49 Demerol; lp1 03:49 Codeine; lp1 03:49 Meclizine; lp1 03:49 Benadryl; lp1 03:49 Amoxicillin; lp1 - Home Meds: 03:49 albuterol sulfate 90 mcg/actuation Inhl aebs 1 puff every 6 hours [Active]; lp1 amitriptyline 50 mg Oral tab 2 tabs nightly [Active]; biotin 1 mg Oral cap [Active]; buspirone 15 mg Oral tab 2 tabs 2 times per day [Active]; citalopram 40 mg tab 1 tab once daily [Active]; clotrimazole 1 % Topical crea 2 times per day [Active]; cyanocobalamin (vitamin B-12) 1000 mcg/ml injection Oral drop [Active]; cyclobenzaprine 5 mg Oral tab 1 tab 3 times per day [Active]; diclofenac sodium 75 mg Oral TbEC 1 tab 2 times per day [Active]; diltiazem HCl 120 mg Oral cp12 1 cap 2 times per day [Active]; econazole nitrate 1 % cream twice a day [Active]; ferrous sulfate 325 mg (65 mg iron) Oral TbEC [Active]; Flovent 110 mcg/actuation Inhl aero 2 puffs 2 times per day [Active]; ginkgo biloba 120 mg Oral tab [Active]; levothyroxine 50 mcg cap 1 cap once daily [Active]; losartan 50 mg Oral tab 1 tab 2 times per day [Active]; metformin 500 mg Oral tr24 1 tab 2 times per day [Active]; Myrbetriq 50 mg Oral Tb24 1 tab once daily [Active]; omeprazole 20 mg Oral cpDR 1 cap once daily [Active]; ozempic 0.25 mg [Active]; pregabalin 150 mg Oral cap 1 cap 3 times per day [Active]; promethazine 25 mg Oral tab 1 tab once daily [Active]; rosuvastatin 10 mg Oral cpSP 1 cap nightly [Active]; triamcinolone acetonide 0.025 % Topical lotn 3 times per day [Active]; - PMHx: 03:49 diabetes mellitus; Anxiety; Hypertensive disorder; Hypothyroidism; lp1 - PSHx: 03:49 None; lp1 - Immunization history:: Adult Immunizations up to date. - Social history:: Smoking status: Patient denies any tobacco usage or history of. - Family history:: not pertinent. Screenin:51 Abuse screen: Denies threats or abuse. Denies injuries from another. Nutritional lp1 screening: No deficits noted. Tuberculosis screening: No symptoms or risk factors identified. Fall Risk None identified. Assessment: 06:58 GI: Abd is soft and non tender. sf1 Vital Signs: 03:47 BP 156 / 106; Pulse 109; Resp 20; Temp 98.4(O); Pulse Ox 99% on R/A; Weight 97.07 kg lp1 (R); Height 5 ft. 2 in. (157.48 cm); Pain 10/10; 05:40 BP 139 / 93; Pulse 95; Pulse Ox 100% ; sf1 06:57 BP 140 / 89; Pulse 104; Resp 18; Pulse Ox 96% on R/A; sf1 03:47 Body Mass Index 39.14 (97.07 kg, 157.48 cm) lp1 ED Course: 03:29 Patient arrived in ED. ja2 03:37 Young Hernandez MD is Attending Physician. yuridia 03:49 Triage completed. lp1 03:49 Arm band placed on. lp1 04:00 Tricia Emery RN is Primary Nurse. sf1 04:21 Basic Metabolic Panel Sent. sf1 04:21 LFT's Sent. sf1 04:21 Magnesium Sent. sf1 04:21 NT PRO-BNP Sent. sf1 04:21 Troponin HS Sent. sf1 04:21 Lipase Sent. sf1 04:54 XRAY Chest (1 view) In Process Unspecified. EDMS 05:01 Urine --Ancillary (enter results) Sent. sf1 06:16 CT Abd/Pelvis - PO and IV Contrast In Process Unspecified. EDMS 06:58 Wayne Osei MD is Referral Physician. yuridia 07:06 Patient has correct armband on for positive identification. Placed in gown. Bed in low sf1 position. 07:06 No provider procedures requiring assistance completed. IV discontinued, intact, sf1 bleeding controlled, No redness/swelling at site. Pressure dressing applied. Administered Medications: 04:12 Drug: Pepcid (famotidine) 20 mg Route: IVP; Site: right antecubital; sf1 04:12 Drug: Zofran (Ondansetron) 4 mg Route: IVP; Site: right antecubital; sf1 04:12 Drug: NS 0.9% 1000 ml Route: IV; Rate: 1 bolus; Site: right antecubital; sf1 05:05 Drug: Rocephin (cefTRIAXone) 1 grams Route: IV; Rate: per protocol; Site: right sf1 antecubital; Outcome: 06:58 Discharge ordered by . yuridia 07:06 Discharged to home ambulatory. sf1 07:06 Condition: good 07:06 Discharge instructions given to patient, Instructed on discharge instructions, follow up and referral plans. Demonstrated understanding of instructions, follow-up care, Prescriptions given X 3. 07:10 Patient left the ED. sf1 Signatures: Dispatcher [employer] Young Contreras MD MD cha Pena, Laura, RN RN lp1 Daisy Jha Samantha, RN RN sf1
--- NOTE | 2021-10-18 06:58 | EDPHYS ---
Physician Documentation [facility] Name: Linda Rahman Age: 46 yrs Sex: Female : 1975 Arrival Date: 10/18/2021 Time: 03:29 Bed 27 Private MD: ALEXA Physician Young Hernandez HPI: 10/18 03:52 This 46 yrs old Female presents to ER via Ambulatory with complaints of yuridia Abdominal Pain. 03:52 The patient presents with abdominal pain abdominal distention in the upper abdomen, in yuridia the lower abdomen. Onset: The symptoms/episode began/occurred 2 day(s) ago. The patient presents to the emergency department with nausea, vomiting, diarrhea. Onset: The symptoms/episode began/occurred 2 day(s) ago. Possible causes: unknown. The symptoms are aggravated by nothing. The symptoms are alleviated by nothing. Associated signs and symptoms: The patient has no apparent associated signs or symptoms. Associated signs and symptoms: Pertinent positives:. Associated signs and symptoms: Pertinent positives: nausea and vomiting. 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 PREP COOK: 03:51 LMP N/A - Post-menopause lp1 Historical: - Allergies: 03:49 Geodon; lp1 03:49 Demerol; lp1 03:49 Codeine; lp1 03:49 Meclizine; lp1 03:49 Benadryl; lp1 03:49 Amoxicillin; lp1 - Home Meds: 03:49 albuterol sulfate 90 mcg/actuation Inhl aebs 1 puff every 6 hours [Active]; lp1 amitriptyline 50 mg Oral tab 2 tabs nightly [Active]; biotin 1 mg Oral cap [Active]; buspirone 15 mg Oral tab 2 tabs 2 times per day [Active]; citalopram 40 mg tab 1 tab once daily [Active]; clotrimazole 1 % Topical crea 2 times per day [Active]; cyanocobalamin (vitamin B-12) 1000 mcg/ml injection Oral drop [Active]; cyclobenzaprine 5 mg Oral tab 1 tab 3 times per day [Active]; diclofenac sodium 75 mg Oral TbEC 1 tab 2 times per day [Active]; diltiazem HCl 120 mg Oral cp12 1 cap 2 times per day [Active]; econazole nitrate 1 % cream twice a day [Active]; ferrous sulfate 325 mg (65 mg iron) Oral TbEC [Active]; Flovent 110 mcg/actuation Inhl aero 2 puffs 2 times per day [Active]; ginkgo biloba 120 mg Oral tab [Active]; levothyroxine 50 mcg cap 1 cap once daily [Active]; losartan 50 mg Oral tab 1 tab 2 times per day [Active]; metformin 500 mg Oral tr24 1 tab 2 times per day [Active]; Myrbetriq 50 mg Oral Tb24 1 tab once daily [Active]; omeprazole 20 mg Oral cpDR 1 cap once daily [Active]; ozempic 0.25 mg [Active]; pregabalin 150 mg Oral cap 1 cap 3 times per day [Active]; promethazine 25 mg Oral tab 1 tab once daily [Active]; rosuvastatin 10 mg Oral cpSP 1 cap nightly [Active]; triamcinolone acetonide 0.025 % Topical lotn 3 times per day [Active]; - PMHx: 03:49 diabetes mellitus; Anxiety; Hypertensive disorder; Hypothyroidism; lp1 - PSHx: 03:49 None; lp1 - Immunization history:: Adult Immunizations up to date. - Social history:: Smoking status: Patient denies any tobacco usage or history of. - Family history:: not pertinent. ROS: 03:53 Constitutional: Negative for fever, chills, and weight loss, Eyes: Negative for injury, yuridia pain, redness, and discharge, ENT: Negative for injury, pain, and discharge, Neck: Negative for injury, pain, and swelling, Cardiovascular: Negative for chest pain, palpitations, and edema, Respiratory: Negative for shortness of breath, cough, wheezing, and pleuritic chest pain, Back: Negative for injury and pain, : Negative for injury, bleeding, discharge, and swelling, MS/Extremity: Negative for injury and deformity, Skin: Negative for injury, rash, and discoloration, Neuro: Negative for headache, weakness, numbness, tingling, and seizure, Psych: Negative for depression, anxiety, suicide ideation, homicidal ideation, and hallucinations, Allergy/Immunology: Negative for hives, rash, and allergies, Endocrine: Negative for neck swelling, polydipsia, polyuria, polyphagia, and marked weight changes, Hematologic/Lymphatic: Negative for swollen nodes, abnormal bleeding, and unusual bruising. 03:53 Abdomen/GI: Positive for abdominal pain, nausea and vomiting, of the epigastric area, right upper quadrant and left upper quadrant. Exam: 03:53 Constitutional: This is a well developed, well nourished patient who is awake, alert, yuridia and in no acute distress. Head/Face: Normocephalic, atraumatic. Eyes: Pupils equal round and reactive to light, extra-ocular motions intact. Lids and lashes normal. Conjunctiva and sclera are non-icteric and not injected. Cornea within normal limits. Periorbital areas with no swelling, redness, or edema. ENT: Nares patent. No nasal discharge, no septal abnormalities noted. Tympanic membranes are normal and external auditory canals are clear. Oropharynx with no redness, swelling, or masses, exudates, or evidence of obstruction, uvula midline. Mucous membranes moist. Neck: Trachea midline, no thyromegaly or masses palpated, and no cervical lymphadenopathy. Supple, full range of motion without nuchal rigidity, or vertebral point tenderness. No Meningismus. Chest/axilla: Normal chest wall appearance and motion. Nontender with no deformity. No lesions are appreciated. Respiratory: Lungs have equal breath sounds bilaterally, clear to auscultation and percussion. No rales, rhonchi or wheezes noted. No increased work of breathing, no retractions or nasal flaring. Abdomen/GI: Soft, non-tender, with normal bowel sounds. No distension or tympany. No guarding or rebound. No evidence of tenderness throughout. Back: No spinal tenderness. No costovertebral tenderness. Full range of motion. Pelvic Exam: Normal external genitalia. Speculum exam with closed cervical os, no discharge or bleeding noted. Bimanual exam with normal adnexa, no adnexal or cervical motion tenderness. Normal uterus. Skin: Warm, dry with normal turgor. Normal color with no rashes, no lesions, and no evidence of cellulitis. MS/ Extremity: Pulses equal, no cyanosis. Neurovascular intact. Full, normal range of motion. Neuro: Awake and alert, GCS 15, oriented to person, place, time, and situation. Cranial nerves II-XII grossly intact. Motor strength 5/5 in all extremities. Sensory grossly intact. Cerebellar exam normal. Normal gait. Psych: Awake, alert, with orientation to person, place and time. Behavior, mood, and affect are within normal limits. 03:53 Cardiovascular: Rate: tachycardic, Rhythm: regular, Pulses: Pulses are 4+ in bilateral radial, brachial, femoral, popliteal, posterior tibial and and dorsalis pedis arteries.. Heart sounds: normal, normal S1and S2, no S3 or S4, no murmur, no rub, no gallop, Edema: 3+ edema to level of right elbow, right hand, left forearm and left wrist and epigastric area, JVD: is not appreciated. 04:31 ECG was reviewed by the Attending Physician. [facility] Vital Signs: 03:47 BP 156 / 106; Pulse 109; Resp 20; Temp 98.4(O); Pulse Ox 99% on R/A; Weight 97.07 kg lp1 (R); Height 5 ft. 2 in. (157.48 cm); Pain 10/10; 05:40 BP 139 / 93; Pulse 95; Pulse Ox 100% ; sf1 06:57 BP 140 / 89; Pulse 104; Resp 18; Pulse Ox 96% on R/A; sf1 03:47 Body Mass Index 39.14 (97.07 kg, 157.48 cm) lp1 MDM: 03:37 Patient medically screened. yuridia 03:55 Differential diagnosis: pancreatitis, diverticulitis, bowel obstruction, yuridia diverticulitis, Dysmenorrhea, Menorrhagia, Mesenteric ischemia or infarction, non-specific abd pain, pancreatitis, Peptic Ulcer Disease, Peritonitis, Pyelonephritis, urinary tract infection. Data reviewed: vital signs, nurses notes, lab test result(s), EKG, radiologic studies, CT scan, plain films. Data interpreted: satellite project site monitor: rate is 109 beats/min, rhythm is regular, Pulse oximetry: on room air is 99 %. Test interpretation: by ED physician or midlevel provider: ECG, plain radiologic studies. Counseling: I had a detailed discussion with the patient and/or guardian regarding: the historical points, exam findings, and any diagnostic results supporting the discharge/admit diagnosis, lab results, radiology results. 10/18 03:52 Order name: Basic Metabolic Panel; Complete Time: 04:35 [facility] 10/18 03:52 Order name: CBC with Diff; Complete Time: 04:25 [facility] 10/18 03:52 Order name: LFT's; Complete Time: 04:35 [facility] 10/18 03:52 Order name: Magnesium; Complete Time: 04:35 10/18 03:52 Order name: NT PRO-BNP; Complete Time: 04:35 10/18 03:52 Order name: PT-INR; Complete Time: 04:25 10/18 03:52 Order name: Troponin HS; Complete Time: 04:35 [facility] 10/18 03:52 Order name: XRAY Chest (1 view) 10/18 03:52 Order name: Lipase; Complete Time: 04:35 yuridia 10/18 03:52 Order name: CT Abd/Pelvis - PO and IV Contrast 10/18 04:19 Order name: Urine Dipstick-Ancillary; Complete Time: 04:25 EDMS 10/18 04:21 Order name: Urine --Ancillary (enter results) [facility] 10/18 04:21 Order name: Urine --Ancillary; Complete Time: 06:26 EDMS 10/18 04:26 Order name: Urine Culture 10/18 03:52 Order name: EKG; Complete Time: 03:53 [facility] 10/18 03:52 Order name: Cardiac monitoring; Complete Time: 04:21 [facility] 10/18 03:52 Order name: EKG - Nurse/Tech; Complete Time: 04:31 [facility] 10/18 03:52 Order name: IV Saline Lock; Complete Time: 04:21 yuridia 10/18 03:52 Order name: Labs collected and sent; Complete Time: 04:21 10/18 03:52 Order name: O2 Per Protocol; Complete Time: 04:21 [facility] 10/18 03:52 Order name: O2 Sat Monitoring; Complete Time: 04:21 yuridia 10/18 03:52 Order name: Urine Dipstick-Ancillary (obtain specimen); Complete Time: 04:21 [facility] 10/18 03:52 Order name: Urine Test (obtain specimen); Complete Time: 04:21 [facility] EC:31 Rate is 98 beats/min. QRS [place] is Normal. [place] interval is normal. QRS interval is yuridia normal. QT interval is normal. No Q waves. T waves are Normal. No ST changes noted. Clinical impression: NSR w/ Non-specific ST/T Changes and No evidence of ischemia. Interpreted by me. Reviewed by me. Administered Medications: 04:12 Drug: Pepcid (famotidine) 20 mg Route: IVP; Site: right antecubital; sf1 04:12 Drug: Zofran (Ondansetron) 4 mg Route: IVP; Site: right antecubital; sf1 04:12 Drug: NS 0.9% 1000 ml Route: IV; Rate: 1 bolus; Site: right antecubital; sf1 05:05 Drug: Rocephin (cefTRIAXone) 1 grams Route: IV; Rate: per protocol; Site: right sf1 antecubital; Disposition Summary: 10/18/21 06:58 Discharge Ordered Location: Home [facility] Problem: new yuridia Symptoms: have improved yuridia Condition: Stable yuridia Diagnosis - Abdominal pain, Generalized yuridia - UTI/ Urinary tract infection, site not specified [facility] Followup: yuridia - With: Private Physician - When: 2 - 3 days - Reason: Recheck today's complaints, Continuance of care, Re-evaluation by your physician Followup: yuridia - With: - When: 2 - 3 days - Reason: Recheck today's complaints, Continuance of care, Re-evaluation by your physician Discharge Instructions: - Discharge Summary Sheet yuridia - Abdominal Pain, Adult yuridia - Abdominal Pain, Adult, [id number] yuridia - Urinary Tract Infection, Adult yuridia - Urinary Tract Infection, Adult, [id number] [facility] Forms: - Medication Reconciliation Form [facility] - Thank You Letter [facility] - Antibiotic Education [facility] - Prescription Opioid Use [facility] Prescriptions: - Cipro 250 mg Oral Tablet - take 1 tablet by ORAL route every 12 hours; 14 tablet; Refills: 0, Product [facility] Selection Permitted - Pepcid 20 mg Oral Tablet - take 1 tablet by ORAL route every 12 hours for 10 days; 20 tablet; Refills: 0, [facility] Product Selection Permitted - dicyclomine 20 mg Oral Tablet - take 1 tablet by ORAL route 4 times per day; 28 tablet; Refills: 0, Product [facility] Selection Permitted Signatures: Dispatcher [employer] Young Contreras MD MD cha Pena, Laura RN RN lp1 Tricia Emery RN RN sf1
--- NOTE | 2021-10-18 07:51 | RAD REPORT ---
EXAM DESCRIPTION: RAD - Chest Single View - 10/18/2021 4:54 am CLINICAL HISTORY: ABDOMINAL DISTENTION COMPARISON: Chest Single View dated 08/16/2021; Chest Single View dated 03/04/2021; Chest Pa And Lat ( 2 Views) dated 12/05/2020; Chest Single View dated 12/04/2020 FINDINGS: Lines: None. Lungs: No evidence of edema or pneumonia. Low lung volumes. Pleural: No significant pleural effusions or pneumothorax. Cardiac: The heart size is within normal limits. Bones: No acute fractures. Other: IMPRESSION: No acute cardiopulmonary disease.
[2021-10-18 12:09] VITALS: TEMP 98.4
[2021-10-18 12:12] VITALS: BP 140/89; O2SAT 96
--- NOTE | 2021-10-19 08:04 | EKG ---
Test Date: 2021-10-18 Test Time: 04:30:46 Elastic Attacher Coverstitch: MEASUREMENT RESULTS: Intervals: Rate: 98 WA: 196 QRSD: 124 QT: 400 QTc: 510 [place]: P: 69 WA: 196 QRS: -71 T: 65 INTERPRETIVE STATEMENTS: Normal sinus rhythm Left anterior fascicular block Abnormal ECG Compared to ECG 08/16/2021 18:50:12 Left anterior fascicular block now present Sinus tachycardia no longer present Left-axis deviation no longer present Intraventricular conduction delay no longer present Electronically Signed On 10-19-21 08:02:52 BOARD OPERATOR by Elijah Lock
--- NOTE | 2021-10-19 13:54 | RAD REPORT ---
EXAM DESCRIPTION: CT - Abdomen Pelvis W Contrast - 10/18/2021 7:20 am CLINICAL HISTORY: ABD PAIN COMPARISON: None. TECHNIQUE: CT ABDOMEN PELVIS WITH IV CONTRAST on 10/18/2021 3:52 AM COST ACCOUNTING ANALYST This exam was performed according to our departmental dose-optimization program, which includes autom ated exposure control, adjustment of the mA and/or kV according to patient size and/or use of iterati ve reconstruction technique. FINDINGS: Lower lungs are clear. Abdomen: Liver is diffusely fatty in attenuation and is enlarged. There is no biliary dilatation. Cho lecystectomy was performed. The pancreas and spleen are normal in appearance. The adrenal glands are normal. Kidneys are mildly atrophic. Abdominal aorta is normal in course and caliber without aneurysm. There is no free air. There is no r etroperitoneal adenopathy. Pelvis: There is no bowel obstruction. Urinary bladder is unremarkable. There is no free fluid. Uteru s is normal in size. Appendix is normal. Skeleton: There are no acute osseous findings. No suspicious bony lesions. IMPRESSION: No acute inflammatory process. No renal or ureteral calculi. Electronically signed by: Kei Toney MD 10/18/2021 6:45 AM COST ACCOUNTING ANALYST Due to temporary technical issues with the PACS/Fluency reporting system, reports are being signed by the in house radiologist without review as a courtesy to ensure prompt reporting. The interpreting r adiologist is fully responsible for the content of the report.
== END 2021-10-18 07:10 | disposition home or self-care (01) ==
LOC: ER 03:27
DX: N39.0 Urinary tract infection, site not specified (principal); Z88.1 Allergy status to other antibiotic agents; Z88.5 Allergy status to narcotic agent; Z88.8 Allergy status to other drugs, medicaments and biological substances
CPT/HCPCS: 93005; 87088; 85025; 87086; 80048; 36415; 83735; 81025; 85610; 80076; 81003; 84484; 83690; 83880; 74177; 71045; 96375; 96374; 99284; Q9967; J7030; J2405

== ENCOUNTER 2021-10-23 11:32 | Emergency (ER) | payer OTHER ==
--- OUTSIDE RECORDS SUMMARY | 2021-10-23 11:37 | XMS REPORT | Continuity of Care Document ---
:1975 Author Organization [facility] t Address [address] [place] [address] Care Team Providers Name Role Phone Josemanuel HOLLINS, A Primary Care Physician Jaymie JOHNS, A Attending Clinician Barry BARR Attending Clinician Unavailable Josemanuel HOLLINS, A Attending Clinician JAYMIE, A Attending Clinician Unavailable Jessica_Barry Attending Clinician Unavailable Gomez HOLLINS, K.H. Attending Clinician Eladia Admitting Clinician Unavailable Payers Payer Name Policy Type Policy Number Effective Date Expiration Date [facility] 8 2021 (MEDICARE 00:00:00 REPLACEMENT HMO) Advance Directives Directive Decision Effective Termination Comments Source Date Date Healthcare Agents on N/A [facility] [place] [facility] FileNameRelationshMount Carmel Health Systemealcare [facility] Agent Medical RelationshipCommunicationDelpha Branch PriceMotherHealth Care [phone] (Mobile) [facility] [phone] (Mobile) Problems Condition Condition Condition Status Onset Resolution Last Treating Co mments Source Name Details Category Date Date Treatment Clinician Date Indigestio Indigestio Disease Active 2020-09 Overview : Univers n n 2-15 Formattin ity of 00:00: g of this note Medical might be Branch different from the original. Added automatic ally from request for surgery [id number] Bloating Bloating Disease Active 2020-09 Overview: Un jerrod 2-15 Formattin ity of 00:00: g of this 00 note Medical might be Branch different from the original. Added automatic ally from request for surgery [id number] Dental Dental Disease Active Univers caries caries [...] hips Branch Intellectu Intellectu Disease Active U nivers al al 9-14 ity of disability disability [...] Uni vers 7-10 ity of 00:00: [place] [facility] Asthma, Asthma, Disease Active Univers mild mild 5-23 ity of persistent persistent 00:00: [place] [facility] Fatty Fatty Disease Active Univers liver liver 3-24 ity of 00:00: [place] [facility] Hepatomega Hepatomega Disease Active U evelyn ly ly 3-24 ity of 00:00: [place] [facility] Obesity Obesity Disease Active Univers (BMI (BMI 2-12 ity of 30-39.9) 30-39.9) 00:00: [place] [facility] Sinus Sinus Disease Active Univers tachycardi tachycardi 1-02 it y of a a 00:00: [place] [facility] Dyslipidem Dyslipidem Disease Active 2015-09 U evelyn ia ia 1-22 ity of 00:00: [place] [facility] Vitamin Vitamin Disease Active 2015-09 Univers B12 B12 1-10 ity of deficiency deficiency 00:[place]: [place] [facility] 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 6-09 ity of 00:00: [place] [facility] Abnormal Abnormal Disease Active Unive rs uterine uterine 5-23 ity of bleeding bleeding 00:00: [place] [facility] Submucous Submucous Disease Active Uni vers leiomyoma leiomyoma 5-23 ity of of uterus of uterus 00:00[place] [facility] Encounter Encounter Disease Active Uni vers for blood for blood 2-16 ity of transfusio transfusio 00:00: [place] [facility] History of History of Disease Active U evelyn tubal tubal 2-05 ity of ligation ligation 00:00: [place] 00 [facility] 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 ity of [facility] PCOS PCOS Disease Active Univers (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) [facility] Branch Allergies, Adverse Reactions, Alerts Allergy Allergy Status Severity Reaction(s) Onset Inactive Treating Comm ents Source Name Type Date Date Clinician MILK DRUG Active Other-Cmnt Univer s INGREDI 8 ity of 00:00: [place] 00 [facility] Milk Propensi Active Other - See sneeze Uni vers ty to comments 05-09 ity of adverse 00:00: [place] reaction 00 [facility] TOMATO DRUG Active Low Other-Cmnt Univer s INGREDI 04-03 ity of 00:00: [place] [facility] Tomato Propensi Active Other - See Tomato Uni vers ty to comments 04-03 source ity of adverse 00:00: reportedl [place] reaction 00 y causes Medica l s excessive Branch sneezing. But pt still eats it. CODEINE DRUG Active Low ITCHING Univers INGREDI 1-17 ity of 00:00: [place] 00 [facility] Branch Codeine Propensi Active Itching Univer s ty to 17 ity of adverse 00:00: [place] reaction 00 [facility] LORAZEPA DRUG Active High Swelling 2016-09 Univer s M INGREDI 0-02 ity of 00:00: [place] 00 [facility] Branch Lorazepa Propensi Active Swelling 2016-09 Hard to Uni vers m ty to 0-02 swallow ity of adverse 00:00: [place] reaction 00 Medical s Branch DIPHENHY DRUG Active High Swelling 0 Univer s DRAMINE INGREDI 7-18 ity of HCL 00:00: [place] 00 Medical Branch Diphenhy Propensi Active Swelling Univ ers dramine ty to 7-18 ity of Hcl adverse 00:00: [place] reaction 00 Medical s Branch BENZONAT DRUG Active High Swelling Univer s ATE INGREDI 2- ity of 00:00: [place] 00 Medical Branch Benzonat Propensi Active Swelling 2017-0 Tightness U nivers ate ty to 2-09 in ity of adverse 00:00: throat, [place] reaction 00 difficult Medic al s to y Branch drug swallowin g and breathing MECLIZIN DRUG Active High Anaphylaxis 20170 Uni vers E INGREDI 1- ity of 00:00: [place] 00 Medical Branch Meclizin Propensi Active Anaphylaxis 2017-0 U nivers e ty to 10-18 ity of adverse 00:00: [place] reaction 00 Medical s Branch MEPERIDI DRUG Active High Hallucinates 2014-0 Un jerrod NE HCL INGREDI 9-04 ity of 00:00: [place] 00 Medical Branch ZIPRASID DRUG Active High Hives 2014-0 Univers ONE HCL INGREDI 9-04 ity of 00:00: [place] 00 Medical Branch AMOXICIL DRUG Active Med Hives 2014-0 Univers FRANCA INGREDI 9-04 ity of 00:00: [place] 00 Medical Branch Amoxicil Propensi Active Hives 2014-0 Univer s franca ty to 9-04 ity of adverse 00:00: [place] reaction 00 Medical s Branch Meperidi Propensi Active Hallucinatio 2015-0 Univers ne Hcl ty to ns 9-04 ity of adverse 00:00: [place] reaction 00 Medical s Branch Ziprasid Propensi Active Hives 2014-0 Univer s one Hcl ty to 9-04 ity of adverse 00:00: [place] reaction 00 Medical s Branch Social History Social Habit Start Date Stop Date Quantity Comments Source Exposure to Not sure [facility] SARS-CoV-2 (event) Medica l Branch Alcohol intake 2021-10-13 2021-10-13 0 /d [facility] 00:00:00 00:00:00 Medical Branch Cigarettes smoked 2015-05-31 2015-05-31 [facility] current (pack per 00:00:00 00:00:00 Medical Branch day) - Reported Cigarette 2015-05-31 2015-05-31 [facility] pack-years 00:00:00 00:00:00 Medical Branch Tobacco use and 2015-05-31 2015-05-31 Never used [facility] exposure 00:00:00 00:00:00 Medical Branch History of tobacco 1982-10-20 2007-10-20 Smoker [facility] use 00:00:00 00:00:00 Medical Branch [birth year] [facility] 00:00:00 00:00:00 Medical Branch Smoking Status Start Date Stop Date Source Former smoker 2015-05-31 00:00:00 2015-05-31 00:00:00 [facility] Medical Branch Medications Ordered Filled Start Stop Current Ordering Indication Dosage Frequency Signature Comments Components Source Medication Medication Date Date Medication? Clinician (SIG) Name Name mirabegron Yes [id number] 50mg Take 1 Univers (MYRBETRIQ) 1-18 tablet by ity of 50 mg 00:00: mouth [place] tablet 00 daily. Medical Branch mirabegron Yes [id number] 50mg Take 1 Univers (MYRBETRIQ) 1-18 tablet by ity of 50 mg 00:00: mouth [place] tablet 00 daily. Medical Branch mirabegron Yes [id number] 50mg Take 1 Univers (MYRBETRIQ) 1-18 tablet by ity of 50 mg 00:00: mouth [place] tablet 00 daily. Medical Branch semaglutide 2020-09 Yes [id number] Inject Univers (OZEMPIC) 2-01 0.25 mg ity of 0.25 mg or 00:00: under the [place] 0.5 mg(2 00 skin Medical mg/1.5 mL) weekly. Branch PnIj metformin 2020-09 Yes [id number] 500mg Take 1 U nivers ER 500 mg 2-01 tablet by ity o f 24 hr 00:00: mouth [place] tablet 00 daily with Medical breakfast. Branch STOP REGULAR METFORMIN. omeprazole 2020-09 Yes [id number] 20mg Take 1 Univers 20 mg 2-01 capsule by ity of capsule 00:00: mouth [place] 00 daily. Medical Branch semaglutide 2020-09 Yes [id number] Inject Univers (OZEMPIC) 2-01 0.25 mg ity of 0.25 mg or 00:00: under the [place] 0.5 mg(2 00 skin Medical mg/1.5 mL) weekly. Branch PnIj metformin 2020-09 Yes [id number] 500mg Take 1 U nivers ER 500 mg 2-01 tablet by ity o f 24 hr 00:00: mouth [place] tablet 00 daily with Medical breakfast. Branch STOP REGULAR METFORMIN. omeprazole 2020-09 Yes [id number] 20mg Take 1 Univers 20 mg 2-01 capsule by ity of capsule 00:00: mouth [place] 00 daily. Medical Branch semaglutide 2020-09 Yes [id number] Inject Univers (OZEMPIC) 2-01 0.25 mg ity of 0.25 mg or 00:00: under the [place] 0.5 mg(2 00 skin Medical mg/1.5 mL) weekly. Branch PnIj metformin 2020-09 Yes [id number] 500mg Take 1 U nivers ER 500 mg 2-01 tablet by ity o f 24 hr 00:00: mouth [place] tablet 00 daily with Medical breakfast. Branch STOP REGULAR METFORMIN. omeprazole 2020-09 Yes [id number] 20mg Take 1 Univers 20 mg 2-01 capsule by ity of capsule 00:00: mouth [place] 00 daily. Medical Branch amitriptyli 2020-09 Yes [id number] 100mg Take 2 Univers ne 50 mg 1-09 tablets by ity o f tablet 00:00: mouth at [place] 00 bedtime. Medical Branch diclofenac 2020-09 Yes [id number] 75mg Take 1 Univers 75 mg EC 1-09 tablet by ity of tablet 00:00: mouth 2 [place] 00 (two) Medical times Branch daily with meals as needed for Pain. USE SPARINGLY DUE TO POSSIBLE SIDE EFFECTS. rosuvastati 2020-09 Yes [id number] 10mg Take 1 Univers n 10 mg 1-09 tablet by ity of tablet 00:00: mouth at [place] 00 bedtime. Medical Branch cyanocobala 2020-09 Yes [id number] 1000ug 1 mL by Univers min 1,000 -09 Intramuscu ity of mcg/mL 00:00: lar route [place] injection 00 every 2 Medical (two) Branch weeks. Insulin 2020-09 Yes [id number] Use as Univ ers [place], 10-04 directed ity of Disposable, 00:00: to inject [place] (PEN 00 Ozempic Medical NEEDLE) 32 once Branch gauge x weekly " Ndle levothyroxi 2020-09 Yes [id number] 50ug Take 1 Univers ne 50 mcg 1-09 tablet by ity o f tablet 00:00: mouth [place] 00 every Medical morning. Branch fluticasone 2020-09 Yes [id number] 2{puff} Inhale 2 Univers propionate 1-09 Puffs ity of (FLOVENT 00:00: every 12 [place] HFA) 110 00 (twelve) Medical mcg/actuati hours. Branch on inhaler Rinse mouth after each use. levalbutero 2020-09 Yes [id number] .63mg Inhale Univers l 0.63 mg/3 1-09 0.63 mg 3 ity of mL 00:00: (three) [place] nebulizer 00 times Medical solution daily as Branch needed for Wheezing or Shortness of Breath. losartan 50 2020-09 Yes [id number] 50mg Take 1 Univers mg tablet 09 tablet by ity o f 00:00: mouth 2 [place] 00 (two) Medical times Branch daily. clotrimazol 2020-09 Yes [id number] Apply to Univers e-betametha 09 area(s) 2 ity of sone cream 00:00: (two) [place] 00 times Medical daily. Branch cyclobenzap 2020-09 Yes [id number] TAKE 1 Univers rine 5 mg -09 TABLET BY ity o f tablet 00:00: MOUTH [place] 00 EVERY 8 Medical HOURS Branch NEEDED citalopram 2020-09 Yes [id number] 40mg Take 1 U nivers 40 mg 1-09 tablet by ity of tablet 00:00: mouth [place] 00 daily. Medical Branch econazole 2020-09 Yes [id number] Apply to Univers nitrate 1 % -09 area(s) 2 ity of cream 00:00: (two) [place] 00 times Medical daily. Branch albuterol 2020-09 Yes [id number] 2{puff} Inhale 2 Univers (PROAIR 1-09 Puffs ity of HFA) 90 00:00: every 6 [place] mcg/actuati 00 (six) Medical on inhaler hours as Branc h needed for Wheezing or Shortness of Breath. triamcinolo 2020-09 Yes [id number] Apply to Univers ne 0.025 % -09 area(s) 3 ity of ointment 00:00: (three) [place] 00 times Medical daily. For Branch itching mirabegron 2020-09 Yes [id number] 50mg Take 1 Univers (MYRBETRIQ) 1-09 tablet by ity of 50 mg 00:00: mouth [place] tablet 00 daily. Medical Branch diltiazem 2020-09 Yes [id number] 120mg Take 1 U nivers (CARTIA XT) -09 capsule by it y of 120 mg 24 00:00: mouth 2 [place] hr capsule 00 (two) Medical times Branch daily. busPIRone 2020-09 Yes [id number] 20mg Take 2 Un jerrod 10 mg -09 tablets by ity of tablet 00:00: mouth 2 [place] 00 (two) Medical times Branch daily. blood sugar 2020-09 Yes [id number] Use twice Univers diagnostic -09 a day for ity of (ONETOUCH 00:00: ICD CODE [place] VERIO TEST 00 E11.65 Medical STRIPS) Branch strip lancets 2020-09 Yes [id number] Use twice U nivers (ONE TOUCH -09 a day for ity of DELICA) 33 00:00: ICD code E[place] as gauge Misc 00 E11.65 Medical Branch pregabalin 2020-09 Yes [id number] 150mg Take 1 Univers 150 mg 10-04 capsule by ity of capsule 00:00: mouth 3 [place] 00 (three) Medical times Branch daily. amitriptyli 2020-09 Yes [id number] 100mg Take 2 Univers ne 50 mg -09 tablets by ity o f tablet 00:00: mouth at [place] 00 bedtime. Medical Branch diclofenac 2020-09 Yes [id number] 75mg Take 1 Univers 75 mg EC -09 tablet by ity of tablet 00:00: mouth 2 [place] 00 (two) Medical times Branch daily with meals as needed for Pain. USE SPARINGLY DUE TO POSSIBLE SIDE EFFECTS. rosuvastati 2020-09 Yes [id number] 10mg Take 1 Univers n 10 mg -09 tablet by ity of tablet 00:00: mouth at [place] 00 bedtime. Medical Branch cyanocobala 2020-09 Yes [id number] 1000ug 1 mL by Univers min 1,000 -09 Intramuscu ity of mcg/mL 00:00: lar route [place] injection 00 every 2 Medical (two) Branch weeks. Insulin 2020-09 Yes [id number] Use as Univ ers [place], -09 directed ity of Disposable, 00:00: to inject [place] (PEN 00 Ozempic Medical NEEDLE) 32 once Branch gauge x weekly " Ndle levothyroxi 2020-09 Yes [id number] 50ug Take 1 Univers ne 50 mcg 09 tablet by ity o f tablet 00:00: mouth [place] 00 every Medical morning. Branch fluticasone 2020-09 Yes [id number] 2{puff} Inhale 2 Univers propionate -09 Puffs ity of (FLOVENT 00:00: every 12 [place] HFA) 110 00 (twelve) Medical mcg/actuati hours. Branch on inhaler Rinse mouth after each use. levalbutero 2020-09 Yes [id number] .63mg Inhale Univers l 0.63 mg/3 -09 0.63 mg 3 ity of mL 00:00: (three) [place] nebulizer 00 times Medical solution daily as Branch needed for Wheezing or Shortness of Breath. losartan 50 2020-09 Yes [id number] 50mg Take 1 Univers mg tablet 10-04 tablet by ity o f 00:00: mouth 2 [place] 00 (two) Medical times Branch daily. clotrimazol 2020-09 Yes [id number] Apply to Univers e-betametha 10-04 area(s) 2 ity of sone cream 00:00: (two) [place] 00 times Medical daily. Branch cyclobenzap 2020-09 Yes [id number] TAKE 1 Univers rine 5 mg -09 TABLET BY ity o f tablet 00:00: MOUTH [place] 00 EVERY 8 Medical HOURS Branch NEEDED citalopram 2020-09 Yes [id number] 40mg Take 1 U nivers 40 mg -09 tablet by ity of tablet 00:00: mouth [place] 00 daily. Medical Branch econazole 2020-09 Yes [id number] Apply to Univers nitrate 1 % 10-04 area(s) 2 ity of cream 00:00: (two) [place] 00 times Medical daily. Branch albuterol 2020-09 Yes [id number] 2{puff} Inhale 2 Univers (PROAIR 1-09 Puffs ity of HFA) 90 00:00: every 6 [place] mcg/actuati 00 (six) Medical on inhaler hours as Branc h needed for Wheezing or Shortness of Breath. triamcinolo 2020-09 Yes [id number] Apply to Univers ne 0.025 % -09 area(s) 3 ity of ointment 00:00: (three) [place] 00 times Medical daily. For Branch itching mirabegron 2020-09 Yes [id number] 50mg Take 1 Univers (MYRBETRIQ) 1-09 tablet by ity of 50 mg 00:00: mouth [place] tablet 00 daily. Medical Branch diltiazem 2020-09 Yes [id number] 120mg Take 1 U nivers (CARTIA XT) -09 capsule by it y of 120 mg 24 00:00: mouth 2 [place] hr capsule 00 (two) Medical times Branch daily. busPIRone 2020-09 Yes [id number] 20mg Take 2 Un jerrod 10 mg -09 tablets by ity of tablet 00:00: mouth 2 [place] 00 (two) Medical times Branch daily. blood sugar 2020-09 Yes [id number] Use twice Univers diagnostic 1-09 a day for ity of (ONETOUCH 00:00: ICD CODE [place] VERIO TEST 00 E11.65 Medical STRIPS) Branch strip lancets 2020-09 Yes [id number] Use twice U nivers (ONE TOUCH 1-09 a day for ity of DELICA) 33 00:00: ICD code [place] as gauge Misc 00 E11.65 Medical Branch pregabalin 2020-09 Yes [id number] 150mg Take 1 Univers 150 mg -09 capsule by ity of capsule 00:00: mouth 3 [place] 00 (three) Medical times Branch daily. amitriptyli 2020-09 Yes [id number] 100mg Take 2 Univers ne 50 mg 1-09 tablets by ity o f tablet 00:00: mouth at [place] 00 bedtime. Medical Branch diclofenac 2020-09 Yes [id number] 75mg Take 1 Univers 75 mg EC 1-09 tablet by ity of tablet 00:00: mouth 2 [place] 00 (two) Medical times Branch daily with meals as needed for Pain. USE SPARINGLY DUE TO POSSIBLE SIDE EFFECTS. rosuvastati 2020-09 Yes [id number] 10mg Take 1 Univers n 10 mg - tablet by ity of tablet 00:00: mouth at [place] 00 bedtime. Medical Branch cyanocobala 2020-09 Yes [id number] 1000ug 1 mL by Univers min 1,000 09 Intramuscu ity of mcg/mL 00:00: lar route [place] injection 00 every 2 Medical (two) Branch weeks. Insulin 2020-09 Yes [id number] Use as Univ ers [place], 10-04 directed ity of Disposable, 00:00: to inject [place] (PEN 00 Ozempic Medical NEEDLE) 32 once Branch gauge x weekly " Ndle levothyroxi 2020-09 Yes [id number] 50ug Take 1 Univers ne 50 mcg 10-04 tablet by ity o f tablet 00:00: mouth [place] 00 every Medical morning. Branch fluticasone 2020-09 Yes [id number] 2{puff} Inhale 2 Univers propionate - Puffs ity of (FLOVENT 00:00: every 12 [place] HFA) 110 00 (twelve) Medical mcg/actuati hours. Branch on inhaler Rinse mouth after each use. levalbutero 2020-09 Yes [id number] .63mg Inhale Univers l 0.63 mg/3 -09 0.63 mg 3 ity of mL 00:00: (three) [place] nebulizer 00 times Medical solution daily as Branch needed for Wheezing or Shortness of Breath. losartan 50 2020-09 Yes [id number] 50mg Take 1 Univers mg tablet 10-04 tablet by ity o f 00:00: mouth 2 [place] 00 (two) Medical times Branch daily. clotrimazol 2020-09 Yes [id number] Apply to [facility] e-betametha 10-04 area(s) 2 ity of sone cream 00:00: (two) [place] 00 times Medical daily. Branch cyclobenzap 2020-09 Yes [id number] TAKE 1 Univers rine 5 mg -09 TABLET BY ity o f tablet 00:00: MOUTH [place] 00 EVERY 8 Medical HOURS Branch NEEDED citalopram 2020-09 Yes [id number] 40mg Take 1 U nivers 40 mg - tablet by ity of tablet 00:00: mouth [place] 00 daily. Medical Branch econazole 2020-09 Yes [id number] Apply to Univers nitrate 1 % -09 area(s) 2 ity of cream 00:00: (two) [place] 00 times Medical daily. Branch albuterol 2020-09 Yes [id number] 2{puff} Inhale 2 Univers (PROAIR 1-09 Puffs ity of HFA) 90 00:00: every 6 [place] mcg/actuati 00 (six) Medical on inhaler hours as Branc h needed for Wheezing or Shortness of Breath. triamcinolo 2020-09 Yes [id number] Apply to Univers ne 0.025 % 10-04 area(s) 3 ity of ointment 00:00: (three) [place] 00 times Medical daily. For Branch itching mirabegron 2020-09 Yes [id number] 50mg Take 1 Univers (MYRBETRIQ) 10-04 tablet by ity of 50 mg 00:00: mouth [place] tablet 00 daily. Medical Branch diltiazem 2020-09 Yes [id number] 120mg Take 1 U nivers (CARTIA XT) 10-04 capsule by it y of 120 mg 24 00:00: mouth 2 [place] hr capsule 00 (two) Medical times Branch daily. busPIRone 2020-09 Yes [id number] 20mg Take 2 Un jerrod 10 mg -09 tablets by ity of tablet 00:00: mouth 2 [place] 00 (two) Medical times Branch daily. blood sugar 2020-09 Yes [id number] Use twice Univers diagnostic 1-09 a day for ity of (ONETOUCH 00:00: ICD CODE [place] VERIO TEST 00 E11.65 Medical STRIPS) Branch strip lancets 2020-09 Yes [id number] Use twice U nivers (ONE TOUCH 1-09 a day for ity of DELICA) 33 00:00: ICD code [place] as gauge Misc 00 E11.65 Medical Branch pregabalin 2020-09 Yes [id number] 150mg Take 1 Univers 150 mg -09 capsule by ity of capsule 00:00: mouth 3 [place] 00 (three) Medical times Branch daily. Blood-Gluco Yes [id number] Use twice Univers se Meter 6-14 a day for ity of (ONETOUCH 00:00: ICD CODE [place] VERIO FLEX 00 E11.65 Medical START) Kit Branch Lancing 0 Yes [id number] To use Univ ers Device with 6-14 twice a ity o f Lancets 00:00: day for [place] (ONE TOUCH 00 ICD code Medic al DELICA) Kit E11.65 Branch Blood-Gluco 0 Yes [id number] Use twice Univers se Meter 6-14 a day for ity of (ONETOUCH 00:00: ICD CODE [place] VERIO FLEX 00 E11.65 Medical START) Kit Branch Lancing 0 Yes [id number] To use Univ ers Device with 6-14 twice a ity o f Lancets 00:00: day for [place] (ONE TOUCH ICD code Medic al DELICA) Kit E11.65 Branch Blood-Gluco 0 Yes [id number] Use twice Univers se Meter 6-14 a day for ity of (ONETOUCH 00:00: ICD CODE [place] VERIO FLEX E11.65 Medical START) Kit Branch Lancing Yes [id number] To use Univ ers Device with 6-14 twice a ity o f Lancets 00:00: day for [place] (ONE TOUCH ICD code Medic al DELICA) Kit E11.65 Branch BIOTIN ORAL Yes Take by Un jerrod 4-30 mouth. ity of 13:07: [place] [facility] BIOTIN ORAL Yes Take by Un jerrod 4-30 mouth. ity of 13:07: [place] [id number] Medical Branch BIOTIN ORAL Yes Take by Un jerrod 4-30 mouth. ity of 13:07: [place] 07 Medical Branch METHYLCELLU Yes Univer s LOSE (FIBER 4-30 ity of THERAPY 13:07: [place] MISC) 06 Medical Branch DOCUSATE Yes Take by Unive rs SODIUM 4-30 mouth. ity of (COLACE 13:07: [place] ORAL) Medical Branch vitamin C Yes 1000mg Take 1,000 Univers with derrell 4-30 mg by ity of hips 13:07: mouth [place] (VITAMIN C) 06 daily. Medica l 1,000 mg Branch tablet cholecalcif Yes 1000U Take 1,000 Univers edmar, 4-30 Units by ity of vitamin D3, 13:07: mouth [place] (VITAMIN 06 daily. Medical D3) 1,000 Branch unit tablet CRANBERRY 0 Yes Take by Univ ers FRUIT 4-30 mouth ity of EXTRACT 13:07: daily. [place] (CRANBERRY 06 Medical ORAL) Branch CALCIUM 0 Yes Take by Univer s ORAL 4-30 mouth ity of 13:07: daily. Medical Branch DOCOSAHEXAN 0 Yes 1000mg Take 1,000 Univers OIC 4-30 mg by ity of ACID/EPA 13:07: mouth [place] (FISH OIL 06 daily. Medical ORAL) Branch METHYLCELLU 0 Yes Univer s LOSE (FIBER 4-30 ity of THERAPY 13:07: [place] MISC) 06 Medical Branch DOCUSATE 0 Yes Take by Unive rs SODIUM 4-30 mouth. ity of (COLACE 13:07: [place] ORAL) 06 Medical Branch vitamin C 0 Yes 1000mg Take 1,000 Univers with derrell 4-30 mg by ity of hips 13:07: mouth [place] (VITAMIN C) 06 daily. Medica l 1,000 mg Branch tablet cholecalcif Yes 1000U Take 1,000 Univers edmar, 4-30 Units by ity of vitamin D3, 13:07: mouth [place] (VITAMIN 06 daily. Medical D3) 1,000 Branch unit tablet CRANBERRY 0 Yes Take by [facility] [place] [facility] ers FRUIT 4-30 mouth ity of EXTRACT 13:07: daily. [place] (CRANBERRY 06 Medical ORAL) Branch CALCIUM Yes Take by Univer s ORAL 4-30 mouth ity of 13:07: daily. Medical Branch DOCOSAHEXAN 0 Yes 1000mg Take 1,000 Univers OIC 4-30 mg by ity of ACID/EPA 13:07: mouth [place] (FISH OIL 06 daily. Medical ORAL) Branch METHYLCELLU 2020-0 Yes Univer s LOSE (FIBER 4-30 ity of THERAPY 13:07: [place] MISC) 06 Medical Branch DOCUSATE 2020-0 Yes Take by Unive rs SODIUM 4-30 mouth. ity of (COLACE 13:07: [place] ORAL) 06 Medical Branch vitamin C 2020-0 Yes 1000mg Take 1,000 Univers with derrell 4-30 mg by ity of hips 13:07: mouth [place] (VITAMIN C) 06 daily. Medica l 1,000 mg Branch tablet cholecalcif Yes 1000U Take 1,000 Univers edmar, 4-30 Units by ity of vitamin D3, 13:07: mouth [place] (VITAMIN 06 daily. Medical D3) 1,000 Branch unit tablet CRANBERRY Yes Take by Univ ers FRUIT 4-30 mouth ity of EXTRACT 13:07: daily. [place] (CRANBERRY Medical ORAL) Branch CALCIUM Yes Take by Univer s ORAL 4-30 mouth ity of 13:07: daily. [place] [facility] DOCOSAHEXAN Yes 1000mg Take 1,000 Univers OIC 4-30 mg by ity of ACID/EPA 13:07: mouth [place] (FISH OIL 06 daily. Medical ORAL) Branch FOLIC ACID Yes Take by Uni vers ORAL 4-30 mouth ity of 13:07: daily. [place] [facility] MULTIVIT Yes Take by Unive rs &MINERALS/F 4-30 mouth. ity of ERROUS FUM 13:07: [place] ([place] [address] Medical VITAMIN Branch ORAL) FOLIC ACID Yes Take by Uni vers ORAL 4-30 mouth ity of 13:07: daily. [place] [address] Medical Branch MULTIVIT Yes Take by Unive rs &MINERALS/F 4-30 mouth. ity of ERROUS FUM 13:07: [place] ([place] [address] Medical VITAMIN Branch ORAL) FOLIC ACID Yes Take by Uni vers ORAL 4-30 mouth ity of 13:07: daily. [place] [address] Medical Branch MULTIVIT Yes Take by Unive rs &MINERALS/F 4-30 mouth. ity of ERROUS FUM 13:07: [place] ([place] [address] Medical VITAMIN Branch ORAL) proMETHazin 2019- Yes TAKE 1 Univ ers e 25 mg 0-22 TABLET BY ity of tablet 00:00: MOUTH 00 EVERY 6 Medical HOURS Branch NEEDED FOR NAUSEA proMETHazin 2019- Yes TAKE 1 Univ ers e 25 mg 0-22 TABLET BY ity of tablet 00:00: MOUTH 00 EVERY 6 Medical HOURS Branch NEEDED FOR NAUSEA proMETHazin 2019-09 Yes TAKE 1 Univ ers e 25 mg 0-22 TABLET BY ity of tablet 00:00: MOUTH 00 EVERY 6 Medical HOURS Branch NEEDED FOR NAUSEA Ginkgo 2019-0 Yes [facility] [place] 120 1-16 ity of mg Tab 00:00: [place] 00 Medical Branch Ginkgo Yes [facility] [place] 120 1-16 ity of mg Tab 00:00: [place] 00 Medical Branch Ginkgo 0 Yes [facility] [place] 120 1-16 ity of mg Tab 00:00: [place] 00 Medical Branch FERROUS Yes [id number] TAKE ONE Uni vers SULFATE 325 8-13 TABLET BY ity of mg (65 mg 00:00: MOUTH [place] iron) 00 THREE Medical tablet TIMES Branch DAILY WITH MEALS FERROUS Yes [id number] TAKE ONE Uni vers SULFATE 325 8-13 TABLET BY ity of mg (65 mg 00:00: MOUTH [place] iron) 00 THREE Medical tablet TIMES Branch DAILY WITH MEALS FERROUS Yes [id number] TAKE ONE Uni vers SULFATE 325 8-13 TABLET BY ity of mg (65 mg 00:00: MOUTH [place] iron) 00 THREE Medical tablet TIMES Branch DAILY WITH MEALS coQ10, Yes [id number] 1{capsu Take 1 U nivers ubiquinol, 1-16 le} capsule by ity of 100 mg Cap 00:00: mouth [place] 00 daily. Medical Branch coQ10, Yes [id number] 1{capsu Take 1 U nivers ubiquinol, 1-16 le} capsule by ity of 100 mg Cap 00:00: mouth [place] 00 daily. Medical Branch coQ10, Yes [id number] 1{capsu Take 1 U nivers ubiquinol, 1-16 le} capsule by ity of 100 mg Cap 00:00: mouth [place] 00 daily. Medical Branch loratadine Yes [id number] 10mg Take 1 Univers 10 mg 1-23 tablet by ity of tablet 00:00: mouth [place] 00 daily. Medical Branch loratadine Yes [id number] 10mg Take 1 Univers 10 mg 1-23 tablet by ity of tablet 00:00: mouth [place] 00 daily. Medical Branch loratadine Yes [id number] 10mg Take 1 Univers 10 mg 1-23 tablet by ity of tablet 00:00: mouth [place] 00 daily. Medical Branch Immunizations Ordered Immunization Filled Immunization Date Status Commen ts Source Name Name SARS-COV-2 COVID-19 2021-07-23 [facility]ACCINE 00:00:00 [facility] SARS-COV-2 COVID-19 2021-07-23 Completed Unive rsity of PFIZER VACCINE 00:00:00 [facility] SARS-COV-2 COVID-19 2021-07-23 Completed Unive rsity of PFIZER VACCINE 00:00:00 [facility] Influenza Virus 2021-05-27 Completed Universit y of Vaccine (3+ yrs) 00:00:00 [facility] Influenza Virus 2021-05-27 Completed Universit y of Vaccine (3+ yrs) 00:00:00 [facility] Influenza Virus 2021-05-27 Completed Universit y of Vaccine (3+ yrs) 00:00:00 [facility] SARS-COV-2 COVID-19 2020-12-13 Completed Unive rsity of PFIZER VACCINE 00:00:00 [facility] SARS-COV-2 COVID-19 2020-12-13 Completed Unive rsity of PFIZER VACCINE 00:00:00 [facility] SARS-COV-2 COVID-19 2020-12-13 Completed Unive rsity of PFIZER VACCINE 00:00:00 [facility] SARS-COV-2 COVID-19 2020-11-22 Completed Unive rsity of PFIZER VACCINE 00:00:00 [facility] SARS-COV-2 COVID-19 2020-11-22 Completed Unive rsity of PFIZER VACCINE 00:00:00 [facility] SARS-COV-2 COVID-19 2020-11-22 Completed Unive rsity of PFIZER VACCINE 00:00:00 [facility] Influenza Virus 2020-05-27 Completed Universit y of Vaccine Recomb Quad 00:00:00 [place] [facility] IM, Preserv and ABX Branc h Free 18-64 YRS Influenza Virus 2020-05-27 Completed Universit y of Vaccine Recomb Quad 00:00:00 [place] [facility] IM, Preserv and ABX Branc h Free 18-64 YRS Influenza Virus 2020-05-27 Completed Universit y of Vaccine Recomb Quad 00:00:00 [place] [facility] IM, Preserv and ABX Branc h Free 18-64 YRS Pneumococcal 2019-08-10 Completed University o f Polysaccharide, 00:00:00 [place] [facility] ical PPSV23 (PNEUMOVAX) Branch TDAP (ADACEL) VACCINE 2019-08-10 Completed Uni versity of 00:00:00 [facility] TDAP 2019-08-10 Completed University of 00:00:00 [facility] Pneumococcal 2019-08-10 Completed University o f Polysaccharide, 00:00:00 [facility] ical PPSV23 (PNEUMOVAX) Branch TDAP (ADACEL) VACCINE 2019-08-10 Completed Uni versity of 00:00:00 [facility] TDAP 2019-08-10 Completed University of 00:00:00 [facility] Pneumococcal 2019-08-10 Completed University o f Polysaccharide, 00:00:00 [facility] ical PPSV23 (PNEUMOVAX) Branch TDAP (ADACEL) VACCINE 2019-08-10 Completed Uni versity of 00:00:00 [facility] TDAP 2019-08-10 Completed University of 00:00:00 [facility] Influenza Virus 2019-07-04 Completed Universit y of Vaccine 00:00:00 [facility] Influenza Virus 2019-07-04 Completed Universit y of Vaccine Recomb Quad 00:00:00 [facility] IM, Preserv and ABX Branc h Free 18-64 YRS Influenza Virus 2019-07-04 Completed Universit y of Vaccine 00:00:00 [facility] Influenza Virus 2019-07-04 Completed Universit y of Vaccine Recomb Quad 00:00:00 [place] [facility] IM, Preserv and ABX Branc h Free 18-64 YRS Influenza Virus 2019-07-04 Completed Universit y of Vaccine 00:00:00 [facility] Influenza Virus 2019-07-04 Completed Universit y of Vaccine Recomb Quad 00:00:00 [place] [facility] IM, Preserv and ABX Branc h Free 18-64 YRS Influenza Virus 2018-06-30 Completed Universit y of Vaccine Quad IM 3+ 00:00:00 [facility] Influenza Virus 2018-06-30 Completed Universit y of Vaccine Quad IM 3+ 00:00:00 [facility] Influenza Virus 2018-06-30 Completed Universit y of Vaccine Quad IM 3+ 00:00:00 [facility] Influenza Virus 2017-06-15 Completed Universit y of Vaccine Quad ID [id number] 00:00:00 [facility] Influenza Virus 2017-06-15 Completed Universit y of Vaccine Quad ID [id number] 00:00:00 [facility] as [facility] Influenza Virus 2017-06-15 Completed Universit y of Vaccine Quad ID [id number] 00:00:00 [facility] Influenza Virus 2016-08-05 Completed Universit y of Vaccine Quad IM 00:00:00 [facility] ical Multi-dose 6+ MO Branch Influenza Virus 2016-08-05 Completed Universit y of Vaccine Quad IM 00:00:00 [place] [facility] ical Multi-dose 6+ MO Branch Influenza Virus 2016-08-05 Completed Universit y of Vaccine Quad IM 00:00:00 [facility] ical Multi-dose 6+ MO Branch Pneumococcal 13 2016-03-07 Completed Universit y of Conjugate, PCV13 00:00:00 [facility] [place] [facility] dical (Prevnar 13) Branch Meningococcal B, OMV 2016-03-07 Completed Univ ersity of 00:00:00 [facility] Pneumococcal 13 2016-03-07 Completed Universit y of Conjugate, PCV13 00:00:00 [facility] [place] [facility] dical (Prevnar 13) Branch Meningococcal B, OMV 2016-03-07 Completed Univ ersity of 00:00:00 [facility] Pneumococcal 13 2016-03-07 Completed Universit y of Conjugate, PCV13 00:00:00 [facility] [place] [facility] dical (Prevnar 13) Branch Meningococcal B, OMV 2016-03-07 Completed Univ ersity of 00:00:00 [facility] Heamophilus Influenza 2015-11-13 Completed Uni versity of B 00:00:00 [facility] Heamophilus Influenza 2015-11-13 Completed Uni versity of B 00:00:00 [facility] Heamophilus Influenza 2015-11-13 Completed Uni versity of B 00:00:00 [facility] Meningococcal 2015-11-12 Completed University of Polysaccharide 00:00:00 [place] [facility] (groups A, C, Y and Branc h W-135) conjugate vaccine (MCV4P) Meningococcal 2015-11-12 Completed University of Polysaccharide 00:00:00 [place] [facility] (groups A, C, Y and Branc h W-135) conjugate vaccine (MCV4P) Meningococcal 2015-11-12 Completed University of Polysaccharide 00:00:00 [place] [facility] (groups A, C, Y and Branc h W-135) conjugate vaccine (MCV4P) TDAP 2015-10-31 Completed University of 00:00:00 [facility] TDAP 2015-10-31 Completed University of 00:00:00 [facility] TDAP 2015-10-31 Completed University of 00:00:00 [facility] Pneumococcal 2014-04-01 Completed [place] o f Polysaccharide, 00:00:00 [facility] ical PPSV23 (PNEUMOVAX) Branch Pneumococcal 2014-04-01 Completed [place] o f Polysaccharide, 00:00:00 [place] [facility] ical PPSV23 (PNEUMOVAX) Branch Pneumococcal 2014-04-01 Completed [place] o f Polysaccharide, 00:00:00 [facility] ical PPSV23 (PNEUMOVAX) Branch Vital Signs Vital Name Observation Time Observation Value Comments Source Systolic blood 2021-10-13 16:37:00 143 mm[Hg] Univer sity pressure [facility] Diastolic blood 2021-10-13 16:37:00 91 mm[Hg] [facility] 2021-10-13 16:37:00 98 /min [facility] Body temperature 2021-10-13 16:35:00 35.67 Melissa [facility] [place] [facility] Respiratory rate 2021-10-13 16:35:00 16 /min [facility] Body weight 2021-10-13 16:35:00 97.07 kg [facility] BMI 2021-10-13 16:35:00 39.14 kg/m2 [facility] Oxygen saturation in 2021-10-13 16:35:00 94 /min [facility] Arterial blood by [facility] Pulse oximetry [place] Procedures Procedure Date / Time Performed Performing Clinician Sourc e POCT URINALYSIS AUTO 2021-10-13 16:30:00 [facility] Start End Encounter Admission Attending Care Care Encounter Source Date/Time Date/Time Type Type Clinicians Facility Department ID 2021-10-23 2021-10-23 Telephone Jaymie [facility] [id number] [facility] 00:00:00 00:00:00 Corry GREGORIO [id number] mark [facility] [id number] Laura BROWN [id number] Id dic[address] 2021-10-22 2021-10-22 Outpatient R MOMO [facility] [id number] [facility] 14:45:00 14:45:00 ISAC [id number] [facility] 2021-10-22 2021-10-22 Outpatient R MOMO [facility] [id number] Univers 14:45:00 14:45:00 ISAC [facility] 2021-10-19 2021-10-19 [facility] [id number] Univers 00:00:00 00:00:00 Wondiful [facility] [id number] ity [facility] [id number] Emanuel as JOLLY?BLEA [id number] Id dical ARLENEEY [address] [place] [address] [address] [facility] 2021-10-13 2021-10-13 [facility] [id number] Univers 10:30:00 10:41:12 Visit Corry A JG [id number] ity [facility] [id number] [place] [id number] Id dical NAL 204 [facility] 2021-10-13 2021-10-13 Outpatient Brock JAYMIE [facility] [id number] Univers 10:30:00 10:41:12 CORRY [facility] 2021-07-10 2021-07-10 Outpatient Kautz_S [facility] [id number] [facility] 05:13:00 05:13:00 1015 [facility] 2021-05-09 2021-05-09 Outpatient [facility] [id number] [facility] 11:00:00 11:00:00 0814 Medica l Group 2021-05-07 2021-05-07 [facility] [id number] [facility] 12:00:00 12:00:00 0812 Med[facility] l [facility] 2021-02-25 2021-02-25 [facility] [id number] 00:00:00 00:00:00 Ricardo [place] [id number] [place] [id number] Professio [id number] [address] Results Test Description Test Time Test [...] 3267) Cloudy Lab Interpretation (test code = 50490-6) Abnormal [facility]
[2021-10-23 12:22] LABS: Absolute Lymphocytes (CBC) 1.1 K/uL (0.7-4.9); Hematocrit 41.5 % (36.0-45.0); Lymphocytes % 15.2 % (15.3-44.8); MPV 9.1 fL (7.6-11.3); RBC Red Blood Cell Count 4.63 M/uL (3.86-4.86)
[2021-10-23 12:42] LABS: Bilirubin Direct 0.2 mg/dL (0-0.2); Bilirubin Total 0.6 mg/dL (0.2-1.0); Potassium 4.6 mmol/L (3.5-5.1); Protein, Total 7.4 g/dL (6.4-8.2)
--- NOTE | 2021-10-23 13:37 | RAD REPORT ---
EXAM DESCRIPTION: CT - Abdomen Pelvis W Contrast - 10/23/2021 1:07 pm CLINICAL HISTORY: Abdominal pain COMPARISON: October 18 2021 TECHNIQUE: Computed axial tomography of the abdomen pelvis was obtained. 100 cc Isovue-300 was admin istered intravenously. Oral contrast was not requested which limits evaluation of bowel. All CT scans are performed using dose optimization technique as appropriate and may include automated exposure control or mA/KV adjustment according to patient size. FINDINGS: Mild fatty infiltration. Liver is mildly enlarged. Prominence of the caudate lobe may indicate cirrhosis. Spleen measures 16 centimeters. Pancreas, adrenals and kidneys unremarkable. Moderate amount of stool is present within the colon. Rectum is mildly distended with stool. No evide nce of diverticulitis. There is no evidence of diverticulitis. A 6 centimeter soft tissue structure abuts the left aspect of the uterus. IMPRESSION: Moderate amount of stool is present within the colon. Rectum is mildly distended with stool. Mild hepatomegaly Shwu-wl-ievwctzd splenomegaly 6 centimeters soft tissue structure abuts the left aspect of the uterus. It may represent a subserosa l fibroid or adnexal mass. Ultrasound recommended
--- NOTE | 2021-10-23 13:54 | EDPHYS ---
Physician Documentation [facility] Name: Linda Rahman Age: 46 yrs Sex: Female : 1975 Arrival Date: 10/23/2021 Time: 11:46 Bed 18 Private MD: ALEXA Physician Mateo Odell HPI: 10/23 15:23 This 46 yrs old Female presents to ER via Ambulatory with complaints of kdr Abdominal Swelling. 15:23 The patient presents with abdominal pain in the upper abdomen, in the right upper kdr quadrant. Onset: The symptoms/episode began/occurred gradually, 4 to 5 months. The symptoms do not radiate. Associated signs and symptoms: Pertinent positives: constipation, nausea. The symptoms are described as achy, crampy, sharp, vague, waxing/waning. Modifying factors: The symptoms are alleviated by nothing, the symptoms are aggravated by breathing deeply. Severity of pain: At its worst the pain was mild moderate just prior to arrival. The patient has experienced similar episodes in the past, chronically. The patient has not recently seen a physician, Patient has been seen here periodically for the same problem. The last was a couple of weeks ago. 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 ap3 Historical: - Allergies: 11:52 Amoxicillin; ap3 11:52 Benadryl; ap3 11:52 Codeine; ap3 11:52 Demerol; ap3 11:52 Geodon; ap3 11:52 Meclizine; ap3 11:52 Tessalon Perles; ap3 - Home Meds: 11:52 albuterol sulfate 90 mcg/actuation Inhl aebs 1 puff every 6 hours [Active]; ap3 amitriptyline 50 mg Oral tab 2 tabs nightly [Active]; biotin 1 mg Oral cap [Active]; buspirone 15 mg Oral tab 2 tabs 2 times per day [Active]; citalopram 40 mg tab 1 tab once daily [Active]; clotrimazole 1 % Topical crea 2 times per day [Active]; cyanocobalamin (vitamin B-12) 1000 mcg/ml injection Oral drop [Active]; cyclobenzaprine 5 mg Oral tab 1 tab 3 times per day [Active]; diclofenac sodium 75 mg Oral TbEC 1 tab 2 times per day [Active]; diltiazem HCl 120 mg Oral cp12 1 cap 2 times per day [Active]; ferrous sulfate 325 mg (65 mg iron) Oral TbEC [Active]; Flovent 110 mcg/actuation Inhl aero 2 puffs 2 times per day [Active]; ginkgo biloba 120 mg Oral tab [Active]; levothyroxine 50 mcg cap 1 cap once daily [Active]; losartan 50 mg Oral tab 1 tab 2 times per day [Active]; metformin 500 mg Oral tr24 1 tab 2 times per day [Active]; Myrbetriq 50 mg Oral Tb24 1 tab once daily [Active]; omeprazole 20 mg Oral cpDR 1 cap once daily [Active]; ozempic 0.25 mg [Active]; pregabalin 150 mg Oral cap 1 cap 3 times per day [Active]; promethazine 25 mg Oral tab 1 tab once daily [Active]; rosuvastatin 10 mg Oral cpSP 1 cap nightly [Active]; triamcinolone acetonide 0.025 % Topical lotn 3 times per day [Active]; econazole nitrate 1 % cream twice a day [Active]; - PMHx: 11:52 Anxiety; diabetes mellitus; Hypothyroidism; Hypertensive disorder; ap3 - Immunization history:: Client reports receiving the 2nd dose of the Covid vaccine. - Social history:: Smoking status: Patient denies any tobacco usage or history of. ROS: 15:23 Constitutional: Negative for fever, chills, and weight loss, Eyes: Negative for injury, kdr pain, redness, and discharge, ENT: Negative for injury, pain, and discharge, Neck: Negative for injury, pain, and swelling, Cardiovascular: Negative for chest pain, palpitations, and edema, Respiratory: Negative for shortness of breath, cough, wheezing, and pleuritic chest pain, Back: Negative for injury and pain, : Negative for injury, bleeding, discharge, and swelling, MS/Extremity: Negative for injury and deformity, Skin: Negative for injury, rash, and discoloration, Neuro: Negative for headache, weakness, numbness, tingling, and seizure activity. Psych: Negative for depression, anxiety, suicide ideation, homicidal ideation, and hallucinations, Allergy/Immunology: Negative for hives, rash, and allergies, Endocrine: Negative for neck swelling, polydipsia, polyuria, polyphagia, and marked weight changes, Hematologic/Lymphatic: Negative for swollen nodes, abnormal bleeding, and unusual bruising. 15:23 Abdomen/GI: Positive for abdominal pain, nausea, constipation, Negative for diarrhea, abdominal distension, anorexia, dysphagia, hematemesis, black/tarry stool, rectal pain, rectal bleeding, bowel incontinence. Exam: 15:23 Constitutional: This is a well developed, well nourished patient who is awake, alert, kdr and in no acute distress. Head/Face: Normocephalic, atraumatic. Eyes: Pupils equal round and reactive to light, extra-ocular motions intact. Lids and lashes normal. Conjunctiva and sclera are non-icteric and not injected. Cornea within normal limits. Periorbital areas with no swelling, redness, or edema. Neck: Trachea midline, no thyromegaly or masses palpated, and no cervical lymphadenopathy. Supple, full range of motion without nuchal rigidity, or vertebral point tenderness. No Meningismus. Chest/axilla: Normal chest wall appearance and motion. Nontender with no deformity. No lesions are appreciated. Cardiovascular: Regular rate and rhythm with a normal S1 and S2. No gallops, murmurs, or rubs. Normal PMI, no JVD. No pulse deficits. Respiratory: Lungs have equal breath sounds bilaterally, clear to auscultation and percussion. No rales, rhonchi or wheezes noted. No increased work of breathing, no retractions or nasal flaring. Abdomen/GI: Soft, non-tender, with normal bowel sounds. No distension or tympany. No guarding or rebound. No evidence of tenderness throughout. Back: No spinal tenderness. No costovertebral tenderness. Full range of motion. Skin: Warm, dry with normal turgor. Normal color with no rashes, no lesions, and no evidence of cellulitis. MS/ Extremity: Pulses equal, no cyanosis. Neurovascular intact. Full, normal range of motion. Neuro: Awake and alert, GCS 15, oriented to person, place, time, and situation. Cranial nerves II-XII grossly intact. Motor strength 5/5 in all extremities. Sensory grossly intact. Cerebellar exam normal. Normal gait. Psych: Awake, alert, with orientation to person, place and time. Behavior, mood, and affect are within normal limits. Vital Signs: 11:50 BP 107 / 57; Pulse 110; Resp 19; Temp 98.4; Pulse Ox 100% ; Weight 97.07 kg; Height 5 ap3 ft. 2 in. (157.48 cm); Pain 10/10; 12:45 BP 118 / 72; Pulse 98; Resp 15; Pulse Ox 96% ; Pain 10/10; eo2 14:15 BP 128 / 90; Pulse 99; Resp 17; Pulse Ox 99% ; Pain 6/10; eo2 11:50 Body Mass Index 39.14 (97.07 kg, 157.48 cm) ap3 MDM: 13:53 Patient medically screened. kdr 15:33 Data reviewed: vital signs, nurses notes, lab test result(s), radiologic studies. kdr Counseling: I had a detailed discussion with the patient and/or guardian regarding: the historical points, exam findings, and any diagnostic results supporting the discharge/admit diagnosis, lab results, radiology results, the need for outpatient follow up. 10/23 11:59 Order name: Basic Metabolic Panel; Complete Time: 13:23 [facility] 10/23 11:59 Order name: CBC with Diff; Complete Time: 13:23 [facility] 10/23 11:59 Order name: Hepatic Function; Complete Time: 13:23 [facility] 10/23 11:59 Order name: Lipase; Complete Time: 13:23 [facility] 10/23 12:29 Order name: CT Abd/Pelvis - IV Contrast Only; Complete Time: 13:49 [facility] 10/23 11:59 Order name: IV Saline Lock; Complete Time: 12:15 [facility] 10/23 11:59 Order name: Labs collected and sent; Complete Time: 12:15 kdr Administered Medications: 14:15 Drug: Miralax (polyethylene glycol) 17 grams Route: PO; eo2 14:29 Follow up: Response: No adverse reaction eo2 14:15 Drug: Dulcolax (bisacodyl) Delayed Release Tablet 5 mg Route: PO; eo2 14:29 Follow up: Response: No adverse reaction eo2 Disposition Summary: 10/23/21 13:53 Discharge Ordered Location: Home kdr Problem: new kdr Symptoms: have improved kdr Condition: Stable kdr Diagnosis - Abdominal pain, Generalized kdr - Constipation kdr Followup: kdr - With: Private Physician - When: 2 - 3 days - Reason: If symptoms return, Further diagnostic work-up, Recheck today's complaints, Continuance of care, Re-evaluation by your physician Discharge Instructions: - Discharge Summary Sheet kdr - Constipation, Adult, [id number] kdr - Abdominal Pain, Adult, Gvdo-[id number]-Diee kdr Forms: - Medication Reconciliation Form kdr - Thank You Letter kdr Prescriptions: - Miralax 17 gram Oral powder in packet - take 1 packet by ORAL route once daily; 20 packet; Refills: 0, Product kdr Selection Permitted - Dulcolax (bisacodyl) 5 mg Oral tablet,delayed release (DR/EC) - take 2 tablet by ORAL route once daily; 20 tablet; Refills: 0, Product kdr Selection Permitted Signatures: Dispatcher [employer] EDMateo Ashley MD MD kdr Adele Ring RN RN ap3 Jolynn Chapman RN RN eo2
--- NOTE | 2021-10-23 13:54 | ER ---
Nurse's Notes [facility] Name: Linda Rahman Age: 46 yrs Sex: Female : 1975 Arrival Date: 10/23/2021 Time: 11:46 Bed 18 Private MD: Diagnosis: Abdominal pain, Generalized;Constipation Presentation: 10/23 11:50 Chief complaint: Patient states: she has had abdominal swelling for approx one month. ap3 she reports being seen in the ED last week and was given rx for pepcid, which she states has not given her any relief. patient also reports that she has a colonoscopy scheduled in October, however her GI provider instructed her to come to the ER. Coronavirus screen: At this time, the client does not indicate any symptoms associated with coronavirus-19. Ebola Screen: No symptoms or risks identified at this time. Initial Sepsis Screen: Does the patient meet any 2 criteria? No. Patient's initial sepsis screen is negative. Does the patient have a suspected source of infection? No. Patient's initial sepsis screen is negative. Risk Assessment: Do you want to hurt yourself or someone else? Patient reports no desire to harm self or others. Onset of symptoms was September 19, 2021. 11:50 Method Of Arrival: Ambulatory ap3 11:50 Acuity: HOLLEY 3 ap3 Triage Assessment: 11:55 General: Appears uncomfortable, Behavior is calm, cooperative. Pain: Complains of pain ap3 in abdomen Pain currently is 10 out of 10 on a pain scale. Neuro: Level of Consciousness is awake, alert, obeys commands, Oriented to person, place, time, Appropriate for age. GI: Abdomen is round Reports normal bowel habits. 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 - Post-menopause ap3 Historical: - Allergies: 11:52 Amoxicillin; ap3 11:52 Benadryl; ap3 11:52 Codeine; ap3 11:52 Demerol; ap3 11:52 Geodon; ap3 11:52 Meclizine; ap3 11:52 Tessalon Perles; ap3 - Home Meds: 11:52 albuterol sulfate 90 mcg/actuation Inhl aebs 1 puff every 6 hours [Active]; ap3 amitriptyline 50 mg Oral tab 2 tabs nightly [Active]; biotin 1 mg Oral cap [Active]; buspirone 15 mg Oral tab 2 tabs 2 times per day [Active]; citalopram 40 mg tab 1 tab once daily [Active]; clotrimazole 1 % Topical crea 2 times per day [Active]; cyanocobalamin (vitamin B-12) 1000 mcg/ml injection Oral drop [Active]; cyclobenzaprine 5 mg Oral tab 1 tab 3 times per day [Active]; diclofenac sodium 75 mg Oral TbEC 1 tab 2 times per day [Active]; diltiazem HCl 120 mg Oral cp12 1 cap 2 times per day [Active]; ferrous sulfate 325 mg (65 mg iron) Oral TbEC [Active]; Flovent 110 mcg/actuation Inhl aero 2 puffs 2 times per day [Active]; ginkgo biloba 120 mg Oral tab [Active]; levothyroxine 50 mcg cap 1 cap once daily [Active]; losartan 50 mg Oral tab 1 tab 2 times per day [Active]; metformin 500 mg Oral tr24 1 tab 2 times per day [Active]; Myrbetriq 50 mg Oral Tb24 1 tab once daily [Active]; omeprazole 20 mg Oral cpDR 1 cap once daily [Active]; ozempic 0.25 mg [Active]; pregabalin 150 mg Oral cap 1 cap 3 times per day [Active]; promethazine 25 mg Oral tab 1 tab once daily [Active]; rosuvastatin 10 mg Oral cpSP 1 cap nightly [Active]; triamcinolone acetonide 0.025 % Topical lotn 3 times per day [Active]; econazole nitrate 1 % cream twice a day [Active]; - PMHx: 11:52 Anxiety; diabetes mellitus; Hypothyroidism; Hypertensive disorder; ap3 - Immunization history:: Client reports receiving the 2nd dose of the Covid vaccine. - Social history:: Smoking status: Patient denies any tobacco usage or history of. Screenin:54 Abuse screen: Denies threats or abuse. Nutritional screening: No deficits noted. ap3 Tuberculosis screening: No symptoms or risk factors identified. Fall Risk None identified. No fall in past 12 months (0 pts). Assessment: 13:01 General: Appears in no apparent distress. Behavior is calm, cooperative. Pain: eo2 Complains of pain in abdomen. Neuro: No deficits noted. Level of Consciousness is awake, alert, obeys commands, Oriented to person, place, time, situation, Reports headache. Cardiovascular: No deficits noted. Denies chest pain, shortness of breath. Respiratory: No deficits noted. Denies shortness of breath. GI: Abdomen is round distended, Bowel sounds present X 4 quads. Abdomen is tender to palpation X 4 quads. Reports bloating, and abdominal pain x 5 months, denies N/V/D. : No deficits noted. No signs and/or symptoms were reported regarding the genitourinary system. Vital Signs: 11:50 BP 107 / 57; Pulse 110; Resp 19; Temp 98.4; Pulse Ox 100% ; Weight 97.07 kg; Height 5 ap3 ft. 2 in. (157.48 cm); Pain 10/10; 12:45 BP 118 / 72; Pulse 98; Resp 15; Pulse Ox 96% ; Pain 10/10; eo2 14:15 BP 128 / 90; Pulse 99; Resp 17; Pulse Ox 99% ; Pain 6/10; eo2 11:50 Body Mass Index 39.14 (97.07 kg, 157.48 cm) ap3 ED Course: 11:46 Patient arrived in ED. mr 11:52 Triage completed. ap3 11:55 Arm band placed on left wrist. ap3 11:59 Mateo Odell MD is Attending Physician. kdr 12:10 Initial lab(s) drawn, by ny, sent to lab. Inserted saline lock: 20 gauge in right dh3 antecubital area, using aseptic technique. Blood collected. 12:19 Jolynn Chapman, RN is Primary Nurse. eo2 12:45 Patient has correct armband on for positive identification. eo2 12:45 Pulse ox on. NIBP on. Door closed. Noise minimized. Warm blanket given. eo2 12:45 No provider procedures requiring assistance completed. eo2 13:08 CT Abd/Pelvis - IV Contrast Only In Process Unspecified. EDMS 14:29 IV discontinued, intact. eo2 Administered Medications: 14:15 Drug: Miralax (polyethylene glycol) 17 grams Route: PO; eo2 14:29 Follow up: Response: No adverse reaction eo2 14:15 Drug: Dulcolax (bisacodyl) Delayed Release Tablet 5 mg Route: PO; eo2 14:29 Follow up: Response: No adverse reaction eo2 Outcome: 13:53 Discharge ordered by . rigoberto 14:29 Discharged to home ambulatory. eo2 14:29 Condition: stable 14:29 Discharge instructions given to patient, Instructed on discharge instructions, follow up and referral plans. medication usage, Demonstrated understanding of instructions, follow-up care, medications. 14:30 Patient left the ED. eo2 Signatures: Dispatcher [employer] EDMS Mateo Odell MD MD kdr Rivera, Mary mr Diop, Obdulia 3 Adele Ring RN RN ap3 Jolynn Chapman RN RN eo2
[2021-10-23] MEDS ORDERED: POLYETHYL GLY 3350 17 GM/DOSE ONE (14:20)
[2021-10-23] MEDS ORDERED: BISACODYL E.C. 5 MG TAB PO ONE (14:20)
[2021-10-23 14:45] VITALS: TEMP 98.4
[2021-10-23 14:55] VITALS: BP 128/90; O2SAT 99
== END 2021-10-23 14:30 | disposition home or self-care (01) ==
LOC: ER 11:32
DX: K59.00 Constipation, unspecified (principal); Z88.1 Allergy status to other antibiotic agents; Z88.5 Allergy status to narcotic agent; Z88.8 Allergy status to other drugs, medicaments and biological substances; I10 Essential (primary) hypertension; F41.9 Anxiety disorder, unspecified
CPT/HCPCS: 85025; 80048; 36415; 80076; 83690; 74177; 99284; Q9967

== ENCOUNTER 2022-01-14 01:03 | Observation (INO) | payer OTHER ==
--- OUTSIDE RECORDS SUMMARY | 2022-01-14 01:08 | XMS REPORT | Continuity of Care Document ---
:1975 Author Organization [facility] t Address [address] [place] [address] Care Team Providers Name Role Phone RUSSEL JOLLY Primary Care Physician Unavailable Barry BARR Attending Clinician Unavailable Momo TITUS S Attending Clinician Jessica_Barry Attending Clinician Unavailable Gomez HOLLINS, K.H. Attending Clinician Eladia Admitting Clinician Unavailable Payers Payer Name Policy Type Policy Number Effective Date Expiration Date Barry [facility] DUAL [id number] 2021 COMP CHOICE PPO 00:00:00 DSNP [facility] [place] STAR PLUS [id number] 2021 00:00:00 DEVOTED HEALTH DAY8 2021 (MEDICARE 00:00:00 REPLACEMENT HMO) Advance Directives Directive Decision Effective Termination Comments Source Date Date Healthcare Agents on N/A Univ ersity FileNameRelationshipHealthcare of [place] Agent Medical RelationshipCommunicationDelpha Branch PriceMotherHealth Care [phone] (Mobile) Kei CarrollonFatherFirst [facility] [phone] (Mobile) Problems Condition Condition Condition Status Onset Resolution Last Treating Co mments Source Name Details Category Date Date Treatment Clinician Date Weakening Weakening Disease Active Uni vers of pelvic of pelvic 4-08 ity of fundus fundus 00:00: [place] 00 Medical Branch Intestinal Intestinal Disease Active Overview : Univers metaplasia metaplasia 4-05 Formattin ity of of body of of body of 00:00: g of this [place] stomach stomach 00 note Medical without without might be Branch dysplasia dysplasia different from the original. Added automatic ally from request for surgery [id number] Chronic Chronic Disease Active Overview: Univ ers superficia superficia 4-05 Formattin ity of l l 00:00: g of this [place] gastritis gastritis 00 note Medi cipriano without without might be Branch bleeding bleeding different from the original. Added automatic ally from request for surgery [id number] Hyperplast Hyperplast Disease Active Overview : Univers ic polyps ic polyps 4-05 Formattin i ty of of stomach of stomach 00:00: g of this [place] 00 note Medical might be Branch different from the original. Added automatic ally from request for surgery [id number] Indigestio Indigestio Disease Active 2020-09 Overview : Univers n n 2-15 Formattin ity of 00:00: g of this [place] 00 note Medical might be Branch different from the original. Added automatic ally from request for surgery [id number] Bloating Bloating Disease Active 2020-09 Overview: Un jerrod 2-15 Formattin ity of 00:00: g of this [place] 00 note Medical might be Branch different from the original. Added automatic ally from request for surgery [id number] Dental Dental Disease Active Univers caries caries 5-20 ity of 00:00: [place] 00 Medical Branch Chronic Chronic Disease Active Univers dental dental 5-20 ity of pain pain 00:00: [place] 00 Medical Branch Macrogloss Macrogloss Disease Active U nivers ia ia 5-20 ity of 00:00: [place] 00 Medical Branch 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 2-16 ity of mellitus mellitus 00:00: [place] with with 00 Medical hyperglyce hyperglyce Br anch gallito, gallito, without without long-term long-term current current use of use of insulin insulin Morbid Morbid Disease Active Univers obesity obesity [...] ia ia 1-22 ity of 00:00: [place] [facility] Branch Vitamin Vitamin Disease Active 2015-09 Univers B12 B12 1-10 ity of deficiency deficiency [place] [facility] Branch 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 6-09 ity of 00:00: [place] [facility] Branch Abnormal Abnormal Disease Active Unive rs uterine uterine 5-23 ity of bleeding bleeding 00:00: [place] [facility] Branch Submucous Submucous Disease Active Uni vers leiomyoma leiomyoma 5-23 ity of of uterus of [place] 00:[place] [facility] Encounter Encounter Disease Active Uni vers for blood for blood 2-16 ity of transfusio transfusio 00:[place] [facility] History of History of Disease Active U nivers tubal tubal 2-05 ity of ligation ligation 00:00: [place] [facility] 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 00:[place] disorder, disorder, [facility] in in Branch remission remission Hypothyroi Hypothyroi Disease Active U nivers d d 2-05 ity of 00:00: [place] [facility] Essential Essential Disease Active Uni vers hypertensi hypertensi 2-05 it y of on, benign on, benign 00:00[place] [facility] Well woman Well woman Disease Active U nivers exam exam 2-05 ity of 00:00: [place] [facility] Chest pain Chest pain Disease Active U nivers 9-13 ity of 00:00: [place] [facility] Peripheral Peripheral Disease Active U nivers neuropathy neuropathy it y of [facility] 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 ity of [facility] PCOS PCOS Disease Active Univers (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) [facility] Branch Allergies, Adverse Reactions, Alerts Allergy Allergy Status Severity Reaction(s) Onset Inactive Treating Comm ents Source Name Type Date Date Clinician Milk Propensi Active Other - See sneeze Uni vers ty to comments 8-14 ity of adverse 00:00: [place] reaction 00 [facility] Branch MILK DRUG Active Other-Cmnt Univer s INGREDI 8-14 ity of 00:00: [place] 00 Medical Branch Tomato Propensi Active Other - See 2018- Tomato Uni vers ty to comments 04-03 source ity of adverse 00:00: reportedl [place] reaction 00 y causes Medica l s excessive Branch sneezing. But pt still eats it. TOMATO DRUG Active Low Other-Cmnt 2018-0 Univer s INGREDI 04-03 ity of 00:00: [place] [facility] Codeine Propensi Active Itching 2018-0 Univer s ty to 17 ity of adverse 00:00: [place] reaction 00 Medical s Branch CODEINE DRUG Active Low ITCHING 2018- Univers INGREDI 17 ity of 00:00: [place] 00 Medical Branch Lorazepa Propensi Active Swelling 2016-09 Hard to Uni vers m ty to 0 swallow ity of adverse 00:00: [place] reaction 00 Medical s Branch LORAZEPA DRUG Active High Swelling 2017- Univer s M INGREDI 0-02 ity of 00:00: [place] [facility] Diphenhy Propensi Active Swelling 2017-0 Univ ers dramine ty to 718 ity of Hcl adverse 00:00: [place] reaction 00 Medical s Branch DIPHENHY DRUG Active High Swelling 2017-0 Univer s DRAMINE INGREDI 718 ity of HCL 00:00: [place] 00 Medical Branch Benzonat Propensi Active Swelling 2017-0 Tightness U nivers ate ty to 2-09 in ity of adverse 00:00: throat, [place] reaction 00 difficult Medic al s to y Branch drug swallowin g and breathing BENZONAT DRUG Active High Swelling 2017-0 Univer s ATE INGREDI 2-09 ity of 00:00: [place] 00 Medical Branch Meclizin Propensi Active Anaphylaxis 2017-0 U nivers e ty to 10-18 ity of adverse 00:00: [place] reaction 00 Medical s Branch MECLIZIN DRUG Active High Anaphylaxis 2017-0 Uni vers E INGREDI 10-18 ity of 00:00: [place] 00 Medical Branch Amoxicil Propensi Active Hives 0 Univer s franca ty to 05-30 ity of adverse 00:00: [place] reaction 00 Medical s Branch Meperidi Propensi Active Hallucinatio 2014- Univers ne Hcl ty to ns 05-30 ity of adverse 00:00: [place] reaction Medical s Branch Ziprasid Propensi Active Hives Univer s one Hcl ty to 05-30 ity of adverse 00:00: [place] reaction 00 Medical s Branch MEPERIDI DRUG Active High Hallucinates Un jerrod NE HCL INGREDI 05-30 ity of 00:00: [place] 00 Medical Branch ZIPRASID DRUG Active High Hives Univers ONE HCL INGREDI 05-30 ity of 00:00: [place] 00 Medical Branch AMOXICIL DRUG Active Med Hives Univers FRANCA INGREDI 05-30 ity of 00:00: [place] 00 Medical Branch Social History Social Habit Start Date Stop Date Quantity Comments Source Exposure to Not sure [facility] SARS-CoV-2 (event) Medica l [place] Alcohol intake 2022-01-11 2022-01-11 0 /d [facility] 00:00:00 00:00:00 Medical Branch Cigarettes smoked 2015-05-31 2015-05-31 [facility] current (pack per 00:00:00 00:00:00 Medical Branch day) - Reported Cigarette 2015-05-31 2015-05-31 [facility] pack-years 00:00:00 00:00:00 Medical Branch Tobacco use and 2015-05-31 2015-05-31 Never used [facility] exposure 00:00:00 00:00:00 Medical Branch History of tobacco 1982-10-20 2007-10-20 Smoker [facility] use 00:00:00 00:00:00 Medical Branch Sex [birth year] [facility] 00:00:00 00:00:00 Medical Branch Smoking Status Start Date Stop Date Source Former smoker 2015-05-31 00:00:00 2015-05-31 00:00:00 [facility] Medical Branch Medications Ordered Filled Start Stop Current Ordering Indication Dosage Frequency Signature Comments Components Source Medication Medication Date Date Medication? Clinician (SIG) Name Name pantoprazol Yes [id number] 40mg Take 1 Univers e 40 mg EC 4-04 tablet by ity of tablet 00:00: mouth 00 daily. Medical Branch pantoprazol Yes [id number] 40mg Take 1 Univers e 40 mg EC 4-04 tablet by ity of tablet 00:00: mouth 00 daily. Medical Branch FOLIC ACID 2022-0 Yes Take by Uni vers ORAL 3-18 mouth ity of 14:37: daily. [place] [address] Medical Branch MULTIVIT 0 Yes Take by Unive rs &MINERALS/F 3-18 mouth. ity of ERROUS FUM 14:37: [place] (MULTI 08 Medical VITAMIN Branch ORAL) METHYLCELLU 0 Yes Univer s LOSE (FIBER 3-18 ity of THERAPY 14:37: [facility]) Medical Branch DOCUSATE 0 Yes Take by Unive rs SODIUM 3-18 mouth. ity of (COLACE 14:37: [place] ORAL) 08 Medical Branch vitamin C 0 Yes 1000mg Take 1,000 Univers with derrell 3-18 mg by ity of hips 14:37: mouth [place] (VITAMIN C) 08 daily. Medica l 1,000 mg Branch tablet cholecalcif Yes 1000U Take 1,000 Univers edmar, 3-18 Units by ity of vitamin D3, 14:37: mouth [place] (VITAMIN 08 daily. Medical D3) 1,000 Branch unit tablet CRANBERRY Yes Take by Univ ers FRUIT 3-18 mouth ity of EXTRACT 14:37: daily. [place] (CRANBERRY 08 Medical ORAL) Branch CALCIUM 0 Yes Take by Univer s ORAL 3-18 mouth ity of 14:37: daily. [place] [address] Medical Branch DOCOSAHEXAN Yes 1000mg Take 1,000 Univers OIC 3-18 mg by ity of ACID/EPA 14:37: mouth [place] (FISH OIL 08 daily. Medical ORAL) Branch BIOTIN ORAL 0 Yes Take by Un jerrod 3-18 mouth. ity of 14:37: [place] [address] Medical Branch FOLIC ACID 0 Yes Take by Uni vers ORAL 3-18 mouth ity of 14:37: daily. [place] [address] Medical Branch MULTIVIT 0 Yes Take by Unive rs &MINERALS/F 3-18 mouth. ity of ERROUS FUM 14:37: [place] (MULTI 08 Medical VITAMIN Branch ORAL) METHYLCELLU 2021-0 Yes Univer s LOSE (FIBER 3-18 ity of THERAPY 14:37: [facility]) Medical Branch DOCUSATE 0 Yes Take by Unive rs SODIUM 3-18 mouth. ity of (COLACE 14:37: [place] ORAL) Medical Branch vitamin C 2022-0 Yes 1000mg Take 1,000 Univers with derrell 3-18 mg by ity of hips 14:37: mouth (VITAMIN C) 08 daily. Medica l 1,000 mg Branch tablet cholecalcif Yes 1000U Take 1,000 Univers edmar, 3-18 Units by ity of vitamin D3, 14:37: mouth (VITAMIN 08 daily. Medical D3) 1,000 Branch unit tablet CRANBERRY Yes Take by [facility] ers FRUIT 3-18 mouth ity of EXTRACT 14:37: daily. [place] (CRANBERRY 08 Medical ORAL) Branch CALCIUM Yes Take by Univer s ORAL 3-18 mouth ity of 14:37: daily. Medical Branch DOCOSAHEXAN Yes 1000mg Take 1,000 Univers OIC 3-18 mg by ity of ACID/EPA 14:37: mouth (FISH OIL 08 daily. Medical ORAL) Branch BIOTIN ORAL Yes Take by Un jerrod 3-18 mouth. ity of 14:37: Medical Branch Blood-Gluco Yes [id number] Use twice Univers se Meter 3-08 a day for ity of (ONETOUCH 00:00: ICD CODE [place] VERIO FLEX 00 E11.65 Medical START) Kit Branch Blood-Gluco Yes [id number] Use twice Univers se Meter 3-08 a day for ity of (ONETOUCH 00:00: ICD CODE [place] VERIO FLEX 00 E11.65 Medical START) Kit Branch sucralfate 0 Yes [id number] 1g Take 1 U nivers 1 gram 2-20 tablet by ity of tablet 00:00: mouth [place] 00 before Medical meals and Branch at bedtime. sucralfate 0 Yes [id number] 1g Take 1 U nivers 1 gram 2-20 tablet by ity of tablet 00:00: [place] 00 before Medical meals and Branch at bedtime. Lancing 0 Yes [id number] To use [facility] ers Device with 2-08 twice a ity o f Lancets 00:00: day for [place] (ONE TOUCH 00 ICD code Medic al DELICA) Kit E11.65 Branch blood sugar 0 Yes [id number] Use twice Univers diagnostic 2-08 a day for ity of (ONETOUCH 00:00: ICD CODE [place] VERIO TEST 00 E11.65 Medical STRIPS) Branch strip Lancing Yes [id number] To use Univ ers Device with 2-08 twice a ity o f Lancets 00:00: day for [place] (ONE TOUCH 00 ICD code Medic al DELICA) Kit E11.65 Branch blood sugar Yes [id number] Use twice Univers diagnostic 2-08 a day for ity of (ONETOUCH 00:00: ICD CODE [place] VERIO TEST 00 E11.65 Medical STRIPS) Branch strip mirabegron Yes [id number] 50mg Take 1 Univers (MYRBETRIQ) 1-18 tablet by ity of 50 mg 00:00: mouth [place] tablet 00 daily. Medical Branch mirabegron Yes [id number] 50mg Take 1 Univers (MYRBETRIQ) 1-18 tablet by ity of 50 mg 00:00: mouth [place] tablet 00 daily. Medical Branch semaglutide 2020-09 Yes [id number] Inject Univers (OZEMPIC) 2-01 0.25 mg ity of 0.25 mg or 00:00: [place] the [place] 0.5 mg(2 00 skin Medical mg/1.5 mL) weekly. Branch PnIj metformin 2020-09 Yes [id number] 500mg Take 1 U nivers ER 500 mg 2-01 tablet by ity o f 24 hr 00:00: mouth [place] tablet 00 daily with Medical breakfast. Branch STOP REGULAR METFORMIN. semaglutide 2020-09 Yes [id number] Inject Univers (OZEMPIC) 2-01 0.25 mg ity of 0.25 mg or 00:00: under the [place] 0.5 mg(2 00 skin Medical mg/1.5 mL) weekly. Branch PnIj metformin 2020-09 Yes [id number] 500mg Take 1 U nivers ER 500 mg 2-01 tablet by ity o f 24 hr 00:00: mouth [place] tablet 00 daily with Medical breakfast. Branch STOP REGULAR METFORMIN. Insulin 2020-09 Yes [id number] Use as Univ ers [place], - directed ity of Disposable, 00:00: to inject [place] (PEN 00 Ozempic Medical NEEDLE) 32 once Branch gauge x weekly " Ndle levothyroxi 2020-09 Yes [id number] 50ug Take 1 Univers ne 50 mcg 1-09 tablet by ity o f tablet 00:00: mouth [place] 00 every Medical morning. Branch fluticasone 2020-09 Yes [id number] 2{puff} Inhale 2 Univers propionate 1-09 Puffs ity of (FLOVENT 00:00: every 12 [place] HFA) 110 00 (twelve) Medical mcg/actuati hours. Branch on inhaler Rinse mouth after each use. levalbutero 2020-09 Yes [id number] .63mg Inhale Univers l 0.63 mg/3 1-09 0.63 mg 3 ity of mL 00:00: (three) [place] nebulizer 00 times Medical solution daily as Branch needed for Wheezing or Shortness of Breath. losartan 50 2020-09 Yes [id number] 50mg Take 1 Univers mg tablet 1-09 tablet by ity o f 00:00: mouth 2 [place] 00 (two) Medical times Branch daily. clotrimazol 2020-09 Yes [id number] Apply to Univers e-betametha -09 area(s) 2 ity of sone cream 00:00: (two) [place] 00 times Medical daily. Branch cyclobenzap 2020-09 Yes [id number] TAKE 1 Univers rine 5 mg 1-09 TABLET BY ity o f tablet 00:00: MOUTH [place] 00 EVERY 8 Medical HOURS Branch NEEDED citalopram 2020-09 Yes [id number] 40mg Take 1 U nivers 40 mg 1-09 tablet by ity of tablet 00:00: mouth [place] 00 daily. Medical Branch econazole 2020-09 Yes [id number] Apply to Univers nitrate 1 % 1-09 area(s) 2 ity of cream 00:00: (two) [place] 00 times Medical daily. Branch albuterol 2020-09 Yes [id number] 2{puff} Inhale 2 Univers (PROAIR 1-09 Puffs ity of HFA) 90 00:00: every 6 [place] mcg/actuati 00 (six) Medical on inhaler hours as Branc h needed for Wheezing or Shortness of Breath. triamcinolo 2020-09 Yes [id number] Apply to Univers ne 0.025 % 1-09 area(s) 3 ity of ointment 00:00: (three) [place] 00 times Medical daily. For Branch itching diltiazem 2020-09 Yes [id number] 120mg Take 1 U nivers (CARTIA XT) -09 capsule by it y of 120 mg 24 00:00: mouth 2 [place] hr capsule 00 (two) Medical times Branch daily. busPIRone 2020-09 Yes [id number] 20mg Take 2 Un jerrod 10 mg -09 tablets by ity of tablet 00:00: mouth 2 [place] 00 (two) Medical times Branch daily. lancets 2020-09 Yes [id number] Use twice U nivers (ONE TOUCH -09 a day for ity of DELICA) 33 00:00: ICD code [place] as gauge Misc 00 E11.65 Medical Branch pregabalin 2020-09 Yes [id number] 150mg Take 1 Univers 150 mg 10-04 capsule by ity of capsule 00:00: mouth 3 [place] 00 (three) Medical times Branch daily. amitriptyli 2020-09 Yes [id number] 100mg Take 2 Univers ne 50 mg 09 tablets by ity o f tablet 00:00: mouth at [place] 00 bedtime. Medical Branch diclofenac 2020-09 Yes [id number] 75mg Take 1 Univers 75 mg EC 10-04 tablet by ity of tablet 00:00: mouth 2 [place] 00 (two) Medical times Branch daily with meals as needed for Pain. USE SPARINGLY DUE TO POSSIBLE SIDE EFFECTS. rosuvastati 2020-09 Yes [id number] 10mg Take 1 Univers n 10 mg 09 tablet by ity of tablet 00:00: mouth at [place] 00 bedtime. Medical Branch cyanocobala 2020-09 Yes [id number] 1000ug 1 mL by Univers min 1,000 10-04 Intramuscu ity of mcg/mL 00:00: lar route [place] injection 00 every 2 Medical (two) Branch weeks. Insulin 2020-09 Yes [id number] Use as Univ ers [place], 10-04 directed ity of Disposable, 00:00: to inject [place] (PEN 00 Ozempic Medical NEEDLE) 32 once Branch gauge x weekly " Ndle levothyroxi 2020-09 Yes [id number] 50ug Take 1 Univers ne 50 mcg 10-04 tablet by ity o f tablet 00:00: mouth [place] 00 every Medical morning. Branch fluticasone 2020-09 Yes [id number] 2{puff} Inhale 2 Univers propionate 1-09 Puffs ity of (FLOVENT 00:00: every 12 [place] HFA) 110 00 (twelve) Medical mcg/actuati hours. Branch on inhaler Rinse mouth after each use. levalbutero 2020-09 Yes [id number] .63mg Inhale Univers l 0.63 mg/3 1-09 0.63 mg 3 ity of mL 00:00: (three) [place] nebulizer 00 times Medical solution daily as Branch needed for Wheezing or Shortness of Breath. losartan 50 2020-09 Yes [id number] 50mg Take 1 Univers mg tablet 1-09 tablet by ity o f 00:00: mouth 2 [place] 00 (two) Medical times Branch daily. clotrimazol 2020-09 Yes [id number] Apply to Univers e-betametha 09 area(s) 2 ity of sone cream 00:00: (two) [place] 00 times Medical daily. Branch cyclobenzap 2020-09 Yes [id number] TAKE 1 Univers rine 5 mg -09 TABLET BY ity o f tablet 00:00: MOUTH [place] 00 EVERY 8 Medical HOURS Branch NEEDED citalopram 2020-09 Yes [id number] 40mg Take 1 U nivers 40 mg -09 tablet by ity of tablet 00:00: mouth [place] 00 daily. Medical Branch econazole 2020-09 Yes [id number] Apply to Univers nitrate 1 % 09 area(s) 2 ity of cream 00:00: (two) [place] 00 times Medical daily. Branch albuterol 2020-09 Yes [id number] 2{puff} Inhale 2 Univers (PROAIR 1-09 Puffs ity of HFA) 90 00:00: every 6 [place] mcg/actuati 00 (six) Medical on inhaler hours as Branc h needed for Wheezing or Shortness of Breath. triamcinolo 2020-09 Yes [id number] Apply to Univers ne 0.025 % -09 area(s) 3 ity of ointment 00:00: (three) [place] 00 times Medical daily. For Branch itching diltiazem 2020-09 Yes [id number] 120mg Take 1 U nivers (CARTIA XT) -09 capsule by it y of 120 mg 24 00:00: mouth 2 [place] hr capsule 00 (two) Medical times Branch daily. busPIRone 2020-09 Yes [id number] 20mg Take 2 Un jerrod 10 mg 1-09 tablets by ity of tablet 00:00: mouth 2 [place] 00 (two) Medical times Branch daily. lancets 2020-09 Yes [id number] Use twice U nivers (ONE TOUCH 1-09 a day for ity of DELICA) 33 00:00: ICD code [place] as gauge Misc 00 E11.65 Medical Branch pregabalin 2020-09 Yes [id number] 150mg Take 1 Univers 150 mg -09 capsule by ity of capsule 00:00: mouth 3 [place] 00 (three) Medical times Branch daily. amitriptyli 2020-09 Yes [id number] 100mg Take 2 Univers ne 50 mg 1-09 tablets by ity o f tablet 00:00: mouth at [place] 00 bedtime. Medical Branch diclofenac 2020-09 Yes [id number] 75mg Take 1 Univers 75 mg EC - tablet by ity of tablet 00:00: mouth 2 [place] 00 (two) Medical times Branch daily with meals as needed for Pain. USE SPARINGLY DUE TO POSSIBLE SIDE EFFECTS. rosuvastati 2020-09 Yes [id number] 10mg Take 1 Univers n 10 mg -09 tablet by ity of tablet 00:00: mouth at [place] 00 bedtime. Medical Branch cyanocobala 2020-09 Yes [id number] 1000ug 1 mL by Univers min 1,000 1-09 Intramuscu ity of mcg/mL 00:00: lar route [place] injection 00 every 2 Medical (two) Branch weeks. proMETHazin 2019-09 Yes TAKE 1 Univ ers [...] Tab 00:00: [place] 00 Medical Branch Ginkgo 2019-0 Yes Univers [place] 120 1-16 ity of mg Tab 00:00: [place] 00 Medical Branch FERROUS 2018-0 Yes [id number] TAKE ONE Uni vers SULFATE 325 8-13 TABLET BY ity of mg (65 mg 00:00: MOUTH [place] iron) 00 THREE Medical tablet TIMES [place] DAILY WITH MEALS FERROUS Yes [id number] TAKE ONE Uni vers SULFATE 325 8-13 TABLET BY ity of mg (65 mg 00:00: MOUTH [place] iron) 00 THREE Medical tablet TIMES [place] DAILY WITH MEALS coQ10, Yes [id number] 1{capsu Take 1 U nivers ubiquinol, 1-16 le} capsule by ity of 100 mg Cap 00:00: mouth [place] 00 daily. [facility] Branch coQ10, Yes [id number] 1{capsu Take 1 U nivers ubiquinol, 1-16 le} capsule by ity of 100 mg Cap 00:00: mouth [place] 00 daily. [facility] loratadine Yes [id number] 10mg Take 1 Univers 10 mg 1-23 tablet by ity of tablet 00:00: mouth [place] 00 daily. [facility] loratadine Yes [id number] 10mg Take 1 Univers 10 mg 1-23 tablet by ity of tablet 00:00: mouth [place] 00 daily. [facility] Immunizations Ordered Immunization Filled Immunization Date Status Commen ts Source Name Name SARS-COV-2 COVID-19 2021-07-23 Completed Unive rsity of PFIZER VACCINE 00:00:00 [facility] SARS-COV-2 COVID-19 2021-07-23 Completed Unive rsity of PFIZER VACCINE 00:00:00 [facility] Influenza Virus 2021-05-27 Completed Universit y of Vaccine (3+ yrs) 00:00:00 [facility] Influenza Virus 2021-05-27 Completed Universit y of Vaccine (3+ yrs) 00:00:00 [facility] SARS-COV-2 COVID-19 2020-12-13 Completed Unive rsity of PFIZER VACCINE 00:00:00 [facility] SARS-COV-2 COVID-19 2020-12-13 Completed Unive rsity of PFIZER VACCINE 00:00:00 [facility] SARS-COV-2 COVID-19 2020-11-22 Completed Unive rsity of PFIZER VACCINE 00:00:00 [facility] SARS-COV-2 COVID-19 2020-11-22 Completed Unive rsity of PFIZER VACCINE 00:00:00 [facility] Influenza Virus 2020-05-27 Completed Universit y of Vaccine Recomb Quad 00:00:00 [place] Medical IM, Preserv and ABX Branc h Free 18-64 YRS Influenza Virus 2020-05-27 Completed Universit y of Vaccine Recomb Quad 00:00:00 [place] Medical IM, Preserv and ABX Branc h Free 18-64 YRS Pneumococcal 2019-08-10 Completed University o f Polysaccharide, 00:00:00 [facility] ical PPSV23 (PNEUMOVAX) Branch TDAP (ADACEL) VACCINE 2019-08-10 Completed Uni versity of 00:00:00 [facility] TDAP 2019-08-10 Completed University of 00:00:00 [facility] Pneumococcal 2019-08-10 Completed University o f Polysaccharide, 00:00:00 [facility] ical PPSV23 (PNEUMOVAX) Branch TDAP (ADACEL) VACCINE 2019-08-10 Completed Uni versity of 00:00:00 [facility] TDAP 2019-08-10 Completed University of 00:00:00 [facility] Influenza Virus 2019-07-04 Completed Universit y of Vaccine 00:00:00 [facility] Influenza Virus 2019-07-04 Completed Universit y of Vaccine Recomb Quad 00:00:00 [place] Medical IM, Preserv and ABX Branc h Free 18-64 YRS Influenza Virus 2019-07-04 Completed Universit y of Vaccine 00:00:00 [facility] Influenza Virus 2019-07-04 Completed Universit y of Vaccine Recomb Quad 00:00:00 [place] Medical IM, Preserv and ABX Branc h Free 18-64 YRS Influenza Virus 2018-06-30 Completed Universit y of Vaccine Quad IM 3+ 00:00:00 [facility] Influenza Virus 2018-06-30 Completed Universit y of Vaccine Quad IM 3+ 00:00:00 [facility] Influenza Virus 2017-06-15 Completed Universit y of Vaccine Quad ID [id number] 00:00:00 Emanuel as [facility] Influenza Virus 2017-06-15 Completed Universit y of Vaccine Quad ID [id number] 00:00:00 Emanuel as [facility] Influenza Virus 2016-08-05 Completed Universit y of Vaccine Quad IM 00:00:00 [facility] ica Multi-dose 6+ MO Branch Influenza Virus 2016-08-05 Completed Universit y of Vaccine Quad IM 00:00:00 [facility] ical Multi-dose 6+ MO Branch Pneumococcal 13 2016-03-07 Completed Universit y of Conjugate, PCV13 00:00:00 [facility] dical (Prevnar 13) Branch Meningococcal B, OMV 2016-03-07 Completed Univ ersity of 00:00:00 [facility] Pneumococcal 13 2016-03-07 Completed Universit y of Conjugate, PCV13 00:00:00 [facility] dical (Prevnar 13) Branch Meningococcal B, OMV 2016-03-07 Completed Univ ersity of 00:00:00 [facility] Heamophilus Influenza 2015-11-13 Completed Uni versity of B 00:00:00 [facility] Heamophilus Influenza 2015-11-13 Completed Uni versity of B 00:00:00 [facility] Meningococcal 2015-11-12 Completed University of Polysaccharide 00:00:00 [facility] (groups A, C, Y and Branc h W-135) conjugate vaccine (MCV4P) Meningococcal 2015-11-12 Completed University of Polysaccharide 00:00:00 [facility] (groups A, C, Y and Branc h W-135) conjugate vaccine (MCV4P) TDAP 2015-10-31 Completed University of 00:00:00 [facility] TDAP 2015-10-31 Completed University of 00:00:00 [facility] Pneumococcal 2014-04-01 Completed University o f Polysaccharide, 00:00:00 [facility] ical PPSV23 (PNEUMOVAX) Branch Pneumococcal 2014-04-01 Completed University o f Polysaccharide, 00:00:00 [facility] ical PPSV23 (PNEUMOVAX) Branch Vital Signs Vital Name Observation Time Observation Value Comments Source Systolic blood 2022-01-11 19:25:00 116 mm[Hg] [facility] Diastolic blood 2022-01-11 19:25:00 72 mm[Hg] [facility] Heart rate 2022-01-11 19:25:00 104 /min [facility] Body height 2022-01-11 19:25:00 157.5 cm [facility] Body weight 2022-01-11 19:25:00 107.049 kg [facility] BMI 2022-01-11 19:25:00 43.16 kg/m2 [facility] Procedures This patient has no known procedures. Encounters Start End Encounter Admission Attending Care Care Encounter Source Date/Time Date/Time Type Type Clinicians Facility Department ID 2022-02-15 2022-02-15 Outpatient R [facility] [id number] Univers 10:30:00 10:30:00 [id number] [facility] 2022-01-11 2022-01-11 [id number] Univers 14:45:00 23:59:00 [facility] 2022-01-11 2022-01-11 Office [facility] [id number] Univers 13:45:00 14:00:00 Visit Isac [facility] [id number] it Mirtha [id number] Emanuel as JOLLY?BLEA [phone] [address] MEDICAL OFFICE BUILDING 2021-07-10 2021-07-10 Outpatient Kautz_S [facility] [id number] Devoted 05:13:00 05:13:00 1015 Medica l Group 2021-05-09 2021-05-09 Outpatient DMG G [id number] [facility]oted 11:00:00 11:00:00 0814 Medica l Group 2021-05-07 2021-05-07 Outpatient DMG G [id number] [facility]oted 12:00:00 12:00:00 0812 Medica l Group 2021-02-25 2021-02-25 Telephone Gomez [facility] [id number] 00:00:00 00:00:00 Ricardo De León [id number] [place] [id number] Professio [phone] nal 059 Building Results This patient has no known results.
[2022-01-14 01:39] LABS: Urine Blood Negative (Negative); Urine Glucose Negative (Negative); Urine Protein Trace (Negative); Urine pH 6.5 (5.0-7.0)
[2022-01-14] MEDS ORDERED: NA CHLORIDE 0.9% 1,000 ML ONE ×3 (01:42→05:33)
[2022-01-14] MEDS ORDERED: ONDANSETRON 4 MG/2 ML VIAL ONE ×2 (01:42→10:28)
[2022-01-14 01:55] LABS: Urine Bacteria 20-50 /HPF (<20); Urine RBC <5 /HPF (NONE SEEN)
[2022-01-14 02:13] LABS: Absolute Lymphocytes (CBC) 1.6 K/uL (0.7-4.9); Lymphocytes % 21.9 % (15.3-44.8); MPV 8.8 fL (7.6-11.3); RBC Red Blood Cell Count 4.03 M/uL (3.86-4.86)
[2022-01-14 02:16] LABS: Albumin 3.9 g/dL (3.4-5.0); Bilirubin Total 0.4 mg/dL (0.2-1.0); Protein, Total 7.3 g/dL (6.4-8.2)
[2022-01-14] MEDS ORDERED: CIPROFLOXACIN 400mg IV 400 MG/200 ML BAG IV ONE ×2 (02:27→08:03)
--- NOTE | 2022-01-14 02:41 | EDPHYS ---
Physician Documentation [facility] Name: Linda Rahman Age: 46 yrs Sex: Female : 1975 Arrival Date: 01/14/2022 Time: 01:06 Bed 7 Private MD: ED Physician Tommy Orellana HPI: 01/14 01:14 This 46 yrs old Female presents to ER via EMS with complaints of fever, Back rn Pain. 01:14 The patient presents with pain that is acute, with no known mechanism of injury. The rn symptoms are located in the low back. Onset: The symptoms/episode began/occurred yesterday. The pain radiates to the abdomen. Associated signs and symptoms: Pertinent positives: dysuria, fever, Pertinent negatives: chest pain, hematuria, incontinence, nausea, numbness, tingling, urinary retention, vomiting. Modifying factors: The patient symptoms are alleviated by nothing, the patient symptoms are aggravated by nothing. Severity of symptoms: At their worst the symptoms were moderate, in the emergency department the symptoms are unchanged. The patient has experienced similar episodes in the past. The patient has not recently seen a physician. Pt reports right lower back pain that radiates to abdomen, assoc with dysuria and fever, no hematuria. No hx of kidney stones. + hx of multiple UTIs. No trauma.. 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 Historical: - Allergies: 01:07 Amoxicillin; 01:07 Benadryl; 01:07 Codeine; 01:07 Demerol; 01:07 Geodon; 01:07 Meclizine; 01:07 Tessalon Perles; - Home Meds: 01:07 albuterol sulfate 90 mcg/actuation Inhl aebs 1 puff every 6 hours [Active]; tw amitriptyline 50 mg Oral tab 2 tabs nightly [Active]; biotin 1 mg Oral cap [Active]; buspirone 15 mg Oral tab 2 tabs 2 times per day [Active]; citalopram 40 mg tab 1 tab once daily [Active]; clotrimazole 1 % Topical crea 2 times per day [Active]; triamcinolone acetonide 0.025 % Topical lotn 3 times per day [Active]; ginkgo biloba 120 mg Oral tab [Active]; levothyroxine 50 mcg cap 1 cap once daily [Active]; ferrous sulfate 325 mg (65 mg iron) Oral TbEC [Active]; cyclobenzaprine 5 mg Oral tab 1 tab 3 times per day [Active]; diclofenac sodium 75 mg Oral TbEC 1 tab 2 times per day [Active]; diltiazem HCl 120 mg Oral cp12 1 cap 2 times per day [Active]; Flovent 110 mcg/actuation Inhl aero 2 puffs 2 times per day [Active]; pregabalin 150 mg Oral cap 1 cap 3 times per day [Active]; promethazine 25 mg Oral tab 1 tab once daily [Active]; rosuvastatin 10 mg Oral cpSP 1 cap nightly [Active]; omeprazole 20 mg Oral cpDR 1 cap once daily [Active]; Myrbetriq 50 mg Oral Tb24 1 tab once daily [Active]; ozempic 0.25 mg [Active]; metformin 500 mg Oral tr24 1 tab 2 times per day [Active]; losartan 50 mg Oral tab 1 tab 2 times per day [Active]; econazole nitrate 1 % cream twice a day [Active]; cyanocobalamin (vitamin B-12) 1000 mcg/ml injection Oral drop [Active]; - PMHx: 01:07 Anxiety; diabetes mellitus; Hypertensive disorder; Hypothyroidism; Anemia; tw5 - Immunization history:: Flu vaccine is not up to date. It has been more than one year since last vaccine. - Social history:: Smoking status: Patient denies any tobacco usage or history of. - Family history:: not pertinent. - Hospitalizations: : No recent hospitalization is reported. ROS: 01:14 Constitutional: + fever and chills Eyes: Negative for injury, pain, redness, and rn patient care, ENT: Negative for injury, pain, and discharge, Neck: Negative for injury, pain, and swelling, Cardiovascular: Negative for chest pain, palpitations, and edema, Respiratory: Negative for shortness of breath, cough, wheezing, and pleuritic chest pain, Abdomen/GI: + abd pain, neg for nausea/vomiting/diarrhea Back: + right lower back pain : + dysuria. MS/Extremity: Negative for injury and deformity, Skin: Negative for injury, rash, and discoloration, Neuro: Negative for headache, weakness, numbness, tingling, and seizure. Exam: 01:14 Constitutional: Overweight female, appears uncomfortable Head/Face: Normocephalic, rn atraumatic. Eyes: Periorbital areas with no swelling, redness, or edema. Cardiovascular: tachycardic, regular Respiratory: Mild tachypnea, no retractions, speaking full sentences. Abdomen/GI: soft, + mild right sided abd tenderenss, no rebound Back: No spinal tenderness. Skin: Warm, dry, no rash or cellulitis MS/ Extremity: Pulses equal, no cyanosis. Neuro: Awake and alert, GCS 15 Vital Signs: 01:07 BP 140 / 80; Pulse 103; Resp 20; Temp 98.4; Pulse Ox 98% on R/A; Weight 99.79 kg; tw5 Height 5 ft. 2 in. (157.48 cm); Pain 9/10; 01:58 BP 150 / 84; Pulse 107; Resp 20 S; Pulse Ox 98% on R/A; as6 11:25 BP 145 / 88; Pulse 98; Resp 18 S; Temp 98.8(O); Pulse Ox 96% on R/A; aa5 01:07 Body Mass Index 40.24 (99.79 kg, 157.48 cm) tw5 MDM: 01:07 Patient medically screened. rn 02:39 Differential diagnosis: UTI, pyelonephritis, kidney stone, sepsis. Data reviewed: vital rn signs, nurses notes, lab test result(s), radiologic studies, CT scan, and as a result, I will admit patient. Counseling: I had a detailed discussion with the patient and/or guardian regarding: the historical points, exam findings, and any diagnostic results supporting the discharge/admit diagnosis, lab results, radiology results, the need for further work-up and treatment in the hospital. Response to treatment: the patient's symptoms have mildly improved after treatment, and as a result, I will admit patient. Admission orders: after a detailed discussion of the patient's condition and case, the admit orders are written by me. ED course: Pt with UTI, tachycardic, elevated lactate, already got abx, and will admit to hospitalist service for further care. . 01/14 01:08 Order name: CBC with Diff; Complete Time: 10:24 rn 04/21 01:08 Order name: CMP; Complete Time: 02:23 rn 01/14 01:08 Order name: Lipase; Complete Time: 02:23 rn 01/14 01:08 Order name: Urine Microscopic Only; Complete Time: 01:56 rn 01/14 01:08 Order name: Blood Culture Adult (2) rn 01/14 01:08 Order name: Procalcitonin; Complete Time: 10:24 rn 01/14 01:08 Order name: Lactate; Complete Time: 02:23 rn 01/14 01:39 Order name: Urine Dipstick-Ancillary; Complete Time: 01:56 EDMS 01/14 01:40 Order name: Urine --Ancillary (enter results); Complete Time: 02:10 ds4 01/14 01:58 Order name: Urine Culture EDMS 01/14 02:17 Order name: Manual Differential; Complete Time: 10:24 EDMS 01/14 02:42 Order name: COVID-19/FLU A+B (Document "Date of Onset" if Symptomatic); Complete Time: as6 10:24 01/14 05:02 Order name: Lactate Sepsis 2 HR Follow-up; Complete Time: 10:24 EDMS 01/14 07:50 Order name: Glucose, Ancillary Testing; Complete Time: 10:24 EDMS 01/14 01:08 Order name: CT Stone Protocol rn 01/14 01:08 Order name: IV Saline Lock; Complete Time: 01:53 rn 01/14 01:08 Order name: Labs collected and sent; Complete Time: 01:53 rn 01/14 01:08 Order name: Urine Dipstick-Ancillary (obtain specimen); Complete Time: 01:29 rn 01/14 01:08 Order name: Urine Test (obtain specimen); Complete Time: 01:30 rn 01/14 01:12 Order name: Stone Protocol EDMS Administered Medications: 01:53 Drug: Zofran (Ondansetron) 4 mg Route: IVP; Site: right antecubital; as6 02:48 Follow up: Response: No adverse reaction as6 01:53 Drug: NS 0.9% 1000 ml Route: IV; Rate: 1000 ml; Site: right antecubital; as6 02:48 Follow up: Response: No adverse reaction; IV Status: Completed infusion; IV Intake: as6 1000ml 02:25 Drug: Cipro (ciprofloxacin) 400 mg Volume: 200 ml; Route: IVPB; Infused Over: 60 mins; as6 Site: right antecubital; 03:58 Follow up: Response: No adverse reaction; IV Status: Completed infusion; IV Intake: as6 200ml 02:47 Drug: NS 0.9% 1000 ml Route: IV; Rate: 1000 ml; Site: right antecubital; as6 03:58 Follow up: Response: No adverse reaction; IV Status: Completed infusion; IV Intake: as6 1000ml 02:47 Drug: Ketorolac 15 mg Route: IVP; Site: right antecubital; as6 03:59 Follow up: Response: No adverse reaction as6 Disposition Summary: 01/14/22 02:40 Hospitalization Ordered Hospitalization Status: Inpatient Admission rn Provider: Nahun Dsouza rn Condition: Stable rn Problem: new rn Symptoms: have improved rn Bed/Room Type: Standard rn Location: [facility] ER HOLD(01/14/22 03:41) eb1 Room Assignment: ERHOLD-(01/14/22 03:41) eb1 Diagnosis - Sepsis, unspecified organism rn - UTI/ Urinary tract infection, site not specified rn Forms: - Medication Reconciliation Form rn - SBAR form rn Signatures: Dispatcher [employer] EDMS Tommy Orellana MD MD rn Basinger, Emily, RN RN eb1 Enrike Moore DO DO ms3 Emily Zhong tw5 Anselmo Crandall RN RN as6 Angie Brownlee, IRINEO PA sb3 Corrections: (The following items were deleted from the chart) 03:41 02:40 Telemetry/MedSurg (Inpatient) rn eb1 03:41 02:40 rn eb1
--- NOTE | 2022-01-14 02:41 | ER ---
Nurse's Notes [facility] Name: Linda Rahman Age: 46 yrs Sex: Female : 1975 Arrival Date: 01/14/2022 Time: 01:06 Bed 7 Private MD: Diagnosis: Sepsis, unspecified organism;UTI/ Urinary tract infection, site not specified Presentation: 01/14 01:06 Chief complaint: EMS states: "Upper back pain, stomach pain, fever, chills, nausea. She tw5 took three tablets of ibuprofen at 9 PM.". 01:07 Coronavirus screen: Vaccine status: Patient reports receiving the 2nd dose of the covid tw5 vaccine. [email or web address]. Ebola Screen: Patient negative for fever greater than or equal to 101.5 degrees Fahrenheit, and additional compatible Ebola Virus Disease symptoms Patient denies exposure to infectious person. Patient denies travel to an Ebola-affected area in the 21 days before illness onset. Initial Sepsis Screen: Does the patient meet any 2 criteria? HR > 90 bpm. Does the patient have a suspected source of infection? Yes: Acute abdominal pain. Risk Assessment: Do you want to hurt yourself or someone else? Patient reports no desire to harm self or others. Onset of symptoms was January 13, 2022 at 03:00. 01:07 Method Of Arrival: EMS: [facility] :07 Acuity: [place] 3 Triage Assessment: 01:07 General: Appears obese, unkempt, Behavior is calm, cooperative, appropriate for age. Pain: Complains of pain in low back area and mid back area Pain radiates to abdomen Pain currently is 9 out of 10 on a pain scale. Musculoskeletal: Range of motion: intact in all extremities. 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 Historical: - Allergies: 01:07 Amoxicillin; 01:07 Benadryl; 01:07 Codeine; 01:07 Demerol; 01:07 Geodon; 01:07 Meclizine; 01:07 Tessalon Perles; - Home Meds: 01:07 albuterol sulfate 90 mcg/actuation Inhl aebs 1 puff every 6 hours [Active]; tw5 amitriptyline 50 mg Oral tab 2 tabs nightly [Active]; biotin 1 mg Oral cap [Active]; buspirone 15 mg Oral tab 2 tabs 2 times per day [Active]; citalopram 40 mg tab 1 tab once daily [Active]; clotrimazole 1 % Topical crea 2 times per day [Active]; triamcinolone acetonide 0.025 % Topical lotn 3 times per day [Active]; ginkgo biloba 120 mg Oral tab [Active]; levothyroxine 50 mcg cap 1 cap once daily [Active]; ferrous sulfate 325 mg (65 mg iron) Oral TbEC [Active]; cyclobenzaprine 5 mg Oral tab 1 tab 3 times per day [Active]; diclofenac sodium 75 mg Oral TbEC 1 tab 2 times per day [Active]; diltiazem HCl 120 mg Oral cp12 1 cap 2 times per day [Active]; Flovent 110 mcg/actuation Inhl aero 2 puffs 2 times per day [Active]; pregabalin 150 mg Oral cap 1 cap 3 times per day [Active]; promethazine 25 mg Oral tab 1 tab once daily [Active]; rosuvastatin 10 mg Oral cpSP 1 cap nightly [Active]; omeprazole 20 mg Oral cpDR 1 cap once daily [Active]; Myrbetriq 50 mg Oral Tb24 1 tab once daily [Active]; ozempic 0.25 mg [Active]; metformin 500 mg Oral tr24 1 tab 2 times per day [Active]; losartan 50 mg Oral tab 1 tab 2 times per day [Active]; econazole nitrate 1 % cream twice a day [Active]; cyanocobalamin (vitamin B-12) 1000 mcg/ml injection Oral drop [Active]; - PMHx: 01:07 Anxiety; diabetes mellitus; Hypertensive disorder; Hypothyroidism; Anemia; tw5 - Immunization history:: Flu vaccine is not up to date. It has been more than one year since last vaccine. - Social history:: Smoking status: Patient denies any tobacco usage or history of. - Family history:: not pertinent. - Hospitalizations: : No recent hospitalization is reported. Screenin:58 Abuse screen: Denies threats or abuse. Denies injuries from another. Nutritional as6 screening: No deficits noted. Tuberculosis screening: No symptoms or risk factors identified. Fall Risk None identified. Assessment: 01:58 General: Behavior is calm, cooperative. Neuro: Level of Consciousness is awake, alert, as6 obeys commands, Oriented to person, place, time, situation. Vital Signs: 01:07 BP 140 / 80; Pulse 103; Resp 20; Temp 98.4; Pulse Ox 98% on R/A; Weight 99.79 kg; tw5 Height 5 ft. 2 in. (157.48 cm); Pain 9/10; 01:58 BP 150 / 84; Pulse 107; Resp 20 S; Pulse Ox 98% on R/A; as6 11:25 BP 145 / 88; Pulse 98; Resp 18 S; Temp 98.8(O); Pulse Ox 96% on R/A; aa5 01:07 Body Mass Index 40.24 (99.79 kg, 157.48 cm) tw5 ED Course: 01:06 Patient arrived in ED. tw5 01:06 Anselmo Crandall, ABDULLAHI is Primary Nurse. as6 01:07 Tommy Orellana MD is Attending Physician. rn 01:07 Arm band placed on right wrist. Patient placed in an exam room, on a stretcher, on tw5 monitoring tech, on pulse oximetry. 01:11 Triage completed. tw5 01:38 Stone Protocol In Process Unspecified. EDMS 01:45 Inserted saline lock: 20 gauge in right antecubital area, using aseptic technique. as6 Blood collected. 01:53 Lactate Sent. as6 01:53 Procalcitonin Sent. as6 01:53 Blood Culture Adult (2) Sent. as6 01:53 CBC with Diff Sent. as6 01:53 CMP Sent. as6 01:53 Lipase Sent. as6 01:58 Placed in gown. Bed in low position. Call light in reach. Side rails up X2. Pulse ox as6 on. NIBP on. 02:40 Nahun Dsouza is Hospitalizing Provider. rn 11:30 IV discontinued, intact, bleeding controlled, No redness/swelling at site. Pressure aa5 dressing applied. 11:30 No provider procedures requiring assistance completed. aa5 Administered Medications: 01:53 Drug: Zofran (Ondansetron) 4 mg Route: IVP; Site: right antecubital; as6 02:48 Follow up: Response: No adverse reaction as6 01:53 Drug: NS 0.9% 1000 ml Route: IV; Rate: 1000 ml; Site: right antecubital; as6 02:48 Follow up: Response: No adverse reaction; IV Status: Completed infusion; IV Intake: as6 1000ml 02:25 Drug: Cipro (ciprofloxacin) 400 mg Volume: 200 ml; Route: IVPB; Infused Over: 60 mins; as6 Site: right antecubital; 03:58 Follow up: Response: No adverse reaction; IV Status: Completed infusion; IV Intake: as6 200ml 02:47 Drug: NS 0.9% 1000 ml Route: IV; Rate: 1000 ml; Site: right antecubital; as6 03:58 Follow up: Response: No adverse reaction; IV Status: Completed infusion; IV Intake: as6 1000ml 02:47 Drug: Ketorolac 15 mg Route: IVP; Site: right antecubital; as6 03:59 Follow up: Response: No adverse reaction as6 Intake: 02:48 IV: 1000ml; Total: 1000ml. as6 03:58 IV: 200ml; Total: 1200ml. as6 03:58 IV: 1000ml; Total: 2200ml. as6 Outcome: 02:40 Decision to Hospitalize by Provider. rn 07:00 Admitted to ER Hold. Please see [facility] for further documentation. aa5 11:30 Patient left the ED. aa5 Signatures: Dispatcher [employer] Tommy Juárez MD MD rn Calderon, Audri, RN RN aa5 Emily Zhong Anselmo Chavez RN RN as6
[2022-01-14] MEDS ORDERED: KETOROLAC 30 MG/ML INJ ONE (02:47)
[2022-01-14 02:53] LABS: Blood Morphology Comment NOTED (NOT SEEN); Platelet Estimate ADEQ
[2022-01-14 02:54] LABS: Polychromasia 1+
--- NOTE | 2022-01-14 03:34 | P.HP ---
Certification for Inpatient Patient admitted to: Inpatient With expected LOS: <2 Midnights Patient will require the following post-hospital care: None Practitioner: I am a practitioner with admitting privileges, knowledge of patient current condition, hospital course, and medical plan of care. Services: Services provided to patient in accordance with Admission requirements found in Title 42 Section 412.3 of the Code of Federal Regulations Patient History Date of Service: 01/14/22 Reason for admission: UTI, Sepsis History of Present Illness: Patient is a 46-year-old female with Chronic diastolic congestive heart failure, pernicious anemia, asthma, hypothyroidism, hypertension, hyperlipidemia who presented to the ED with complaints of flank pain and dysuria that began this morning. In the ED, her urine was positive for UTI. Lactic acid elevated 2.5 and Pro-Can 0.08. WBC within normal limits at 7.1. She was given ketorolac, fluids, and ciprofloxacin. Vital signs stable. ED provider wishes to admit patient for further treatment. Allergies amoxicillin [Amoxicillin] Allergy (Mild, Verified 08/14/17 10:28) Hives meperidine HCl [From Demerol] Allergy (Verified 08/14/17 10:28) Anaphylaxis ziprasidone HCl [From Geodon] Allergy (Verified 08/14/17 10:28) Anaphylaxis meclizine Adverse Reaction (Intermediate, Verified 08/14/17 10:28) Anaphylaxis diphenhydramine [From Benadryl] Adverse Reaction (Verified 08/14/17 10:28) Anaphylaxis lorazepam Adverse Reaction (Verified 08/14/17 10:28) Anaphylaxis ziprasidone mesylate [From Geodon] Adverse Reaction (Verified 08/14/17 10:28) Anaphylaxis Amoxicillin Allergy (Uncoded 08/14/17 10:28) Anaphylaxis Tessalon Allergy (Uncoded 08/14/17 10:28) Anaphylaxis Tessalon Adilene Adverse Reaction (Uncoded 08/14/17 10:28) Anaphylaxis Home Medications: Amitriptyline [Elavil*] 50 mg PO BEDTIME 08/14/17 Citalopram Hydrobromide [Citalopram HBr] 40 mg PO DAILY 08/14/17 Cyanocobalamin (Vitamin B-12) [Cyanocobalamin Injection] 1 ml IM DIRECTED 08/14/17 Ferrous Sulfate [Ferrous Sulfate*] 1 tab PO TID 08/14/17 Levothyroxine [Synthroid*] 50 mcg PO [id number] 08/14/17 Cyclobenzaprine HCl [Flexeril] 5 mg PO Q8HR PRN 12/05/20 Omeprazole 20 mg PO DAILY 12/05/20 Pregabalin [Lyrica] 150 mg PO TID 12/05/20 Rosuvastatin [Crestor*] 10 mg PO BEDTIME 12/05/20 Albuterol Sulfate [Proair Digihaler] 1 puff IH Q6H 08/17/21 Aspirin [Aspirin EC] 81 mg PO DAILY #30 tablet. 08/17/21 Buspirone HCl 15 mg PO BID 08/17/21 Diclofenac Sodium [Voltaren] 75 mg PO BID 08/17/21 Fluticasone [Flovent Hfa 110*] 2 sprays IH BID 08/17/21 Metformin HCl [Glucophage*] 500 mg PO BID 08/17/21 Mirabegron [Myrbetriq] 50 mg PO DAILY 08/17/21 Semaglutide [Ozempic] 0.25 mg SQ Q7D 08/17/21 - Past Medical/Surgical History Diabetic: No -: Chronic diastolic congestive heart failure -: pernicious anemia -: asthma -: major depression -: hypothyroidism -: anxiety -: neuropathy -: hypertension -: high cholesterol -: learning disability -: tachycardia -: sleep apnea -: cholecystecomy -: tubal ligation Psychosocial/ Personal History: Patient is on disability, lives at home with her family - Family History Mother -: Hypertension, Kidney disease Notes: celiac, oa, Father -: Hypertension, Diabetes, Other (see notes) Notes: high cholesterol - Social History Alcohol use: No CD- Drugs: No Caffeine use: Yes Place of Residence: Home Review of Systems General: Fever Genitourinary: Dysuria, Frequency, Urgency, Other (flank pain) Physical Examination - Physical Exam General: Alert, In no apparent distress, Oriented x3, Obese HEENT: Atraumatic, PERRLA, Mucous membr. moist/pink, EOMI, Sclerae nonicteric Neck: Supple, 2+ carotid pulse no bruit, No LAD, Without JVD or thyroid abnormality Respiratory: Clear to auscultation bilaterally, Normal air movement Cardiovascular: Regular rate/rhythm, Normal S1 S2 Gastrointestinal: Normal bowel sounds, No tenderness Musculoskeletal: No tenderness Integumentary: No rashes Neurological: Normal speech, Normal strength at 5/5 x4 extr, Normal tone, Normal affect - Studies Laboratory Data (last 24 hrs) 01/14/22 01:47: Sodium 138, Potassium 4.0, BUN 18, Creatinine 0.97, Glucose 211 H, Total Bilirubin 0.4, AST 27, ALT 44, Alkaline Phosphatase 161 H, Lipase 122 01/14/22 01:47: WBC 7.1, Hgb 12.8, Hct 37.0, Plt Count 262 Assessment and Plan - Problems (Diagnosis) (1) UTI (urinary tract infection) Current Visit: Yes Status: Acute Qualifiers: Urinary tract infection type: acute cystitis Hematuria presence: without hematuria Qualified Code(s): N30.00 - Acute cystitis without hematuria (2) Sepsis Current Visit: Yes Status: Acute Qualifiers: Sepsis type: sepsis due to unspecified organism Sepsis acute organ dysfunction status: without acute organ dysfunction Qualified Code(s): A41.9 - Sepsis, unspecified organism (3) Hypothyroidism Onset Date: 08/15/17 Current Visit: Yes Status: Chronic Qualifiers: Hypothyroidism type: acquired Qualified Code(s): E03.9 - Hypothyroidism, unspecified (4) Obesity Onset Date: 08/15/17 Current Visit: Yes Status: Chronic Qualifiers: Obesity type: due to excess calories Obesity classification: unspecified obesity classification Serious obesity comorbidity presence: without serious comorbidity Qualified Code(s): E66.09 - Other obesity due to excess calories - Plan -Patient has several allergies. continue IV ciprofloxacin for treatment of UTI. Urine culture sent -Lactic acid was elevated 2.5 and Pro-Can elevated 0.08. She received 2 L of fluid in the ED. We will continue fluids at 100 cc an hour. No other signs of sepsis at this time. Vital signs stable -Patient complaining of back pain and dysuria. Morphine as needed pain and Zofran PRN Nausea -Patient reports history of asthma. Breathing treatments ordered as needed -Kidney function stable. -Lovenox for DVT prophylaxis Discharge Plan: Home Plan to discharge in: 48 Hours - Advance Directives Does patient have a Living Will: No Does patient have a Durable POA for Healthcare: No - Code Status/Comfort Care Code Status Assessed: Yes (Full) Critical Care: No Time Spent Managing Pts Care (In Minutes): 50
[2022-01-14 03:35] LABS: SARS-COV-2 RT PCR NEGATIVE (NEGATIVE)
[2022-01-14] MEDS ORDERED: MORPHINE 2 MG/ML SYR IV PRN (04:04)
[2022-01-14] MEDS ORDERED: ACETAMINOPHEN 500 MG TAB PO PRN (04:04)
[2022-01-14] MEDS ORDERED: NA CHLORIDE 0.9% 1,000 ML IV SCH (04:04)
[2022-01-14] MEDS ORDERED: ALBUTEROL 2.5 MG/3 ML NEB SOL NEB PRN (04:04)
[2022-01-14] MEDS ORDERED: ONDANSETRON 4 MG/2 ML VIAL IV PRN (04:04)
[2022-01-14 04:08] VITALS: BMI 40.1
[2022-01-14] MEDS ORDERED: INSULIN -REGULAR HUMAN 50 UNIT/0.5 ML ML SQ SCH (07:30)
[2022-01-14] MEDS ORDERED: ENOXAPARIN 40 MG/0.4 ML SQ ONE (08:03)
[2022-01-14 08:07] VITALS: BP 126/71; TEMP 98.7
[2022-01-14] MEDS ORDERED: ENOXAPARIN 40 MG/0.4 ML SQ SCH (09:00)
[2022-01-14] MEDS ORDERED: CIPROFLOXACIN 400mg IV 400 MG/200 ML BAG IV SCH (09:00)
[2022-01-14] MEDS ORDERED: MORPHINE 2 MG/ML SYR ONE (10:27)
--- NOTE | 2022-01-14 11:14 | P.DS ---
Admission Date: 01/14/22 Discharge Date: 01/14/22 Disposition: ROUTINE DISCHARGE Discharge Condition: FAIR Reason for Admission: UTI, Sepsis - Problems (1) UTI (urinary tract infection) Status: Acute Qualifiers: Urinary tract infection type: acute cystitis Hematuria presence: without hematuria Qualified Code(s): N30.00 - Acute cystitis without hematuria Brief History of Present Illness: Patient is a 46-year-old female with Chronic diastolic congestive heart failure, pernicious anemia, asthma, hypothyroidism, hypertension, hyperlipidemia who presented to the ED with complaints of flank pain and dysuria that began this morning. In the ED, her urine was positive for UTI. Lactic acid elevated 2.5 and Pro-Can 0.08. WBC within normal limits at 7.1. She was given ketorolac, fluids, and ciprofloxacin. Vital signs stable. Patient admitted for further management. Hospital Course: Her lactic acidosis normalized after IV hydration. Cultures are pending. Patient has no nausea or vomiting, vitals are stable. She was given a dose of IV Cipro. She is discharged with oral ciprofloxacin to continue treatment for UTI. Vital Signs/Physical Exam: Temp Pulse Resp BP Pulse Ox 98.7 F 102 H 126/71 99 01/14/22 08:00 01/14/22 08:00 01/14/22 08:00 01/14/22 08:00 General: Alert, In no apparent distress, Oriented x3 HEENT: Atraumatic, Mucous membr. moist/pink Neck: Supple, JVD not distended Respiratory: Clear to auscultation bilaterally, Normal air movement Cardiovascular: No edema, Regular rate/rhythm, Normal S1 S2 Gastrointestinal: Normal bowel sounds, Soft and benign, Non-distended, No tenderness Musculoskeletal: No swelling Integumentary: No rashes Neurological: Normal strength at 5/5 x4 extr Laboratory Data at Discharge: WBC 7.1 K/uL (4.3-10.9) 01/14/22 01:47 Hgb 12.8 g/dL (12.0-15.0) 01/14/22 01:47 Hct 37.0 % (36.0-45.0) 01/14/22 01:47 Plt Count 262 K/uL (152-406) 01/14/22 01:47 Sodium 138 mmol/L (136-145) 01/14/22 01:47 Potassium 4.0 mmol/L (3.5-5.1) 01/14/22 01:47 BUN 18 mg/dL (7-18) 01/14/22 01:47 Creatinine 0.97 mg/dL (0.55-1.3) 01/14/22 01:47 Glucose 211 mg/dL (74-106) H 01/14/22 01:47 Total Bilirubin 0.4 mg/dL (0.2-1.0) 01/14/22 01:47 AST 27 U/L (15-37) 01/14/22 01:47 ALT 44 U/L (12-78) 01/14/22 01:47 Alkaline Phosphatase 161 U/L (45-117) H 01/14/22 01:47 Lipase 122 U/L (73-393) 01/14/22 01:47 Home Medications: Amitriptyline [Elavil*] 100 mg PO BEDTIME 08/14/17 Citalopram Hydrobromide [Citalopram HBr] 40 mg PO DAILY 08/14/17 Cyanocobalamin (Vitamin B-12) [Cyanocobalamin Injection] 1 ml IM DIRECTED 08/14/17 Ferrous Sulfate [Ferrous Sulfate*] 1 tab PO TID 08/14/17 Levothyroxine [Synthroid*] 50 mcg PO [id number] 08/14/17 Cyclobenzaprine HCl [Flexeril] 5 mg PO Q8HR PRN 12/05/20 Pregabalin [Lyrica] 150 mg PO TID 12/05/20 Rosuvastatin [Crestor*] 10 mg PO BEDTIME 12/05/20 Albuterol Sulfate [Proair Digihaler] 2 puff IH Q6H 08/17/21 Buspirone HCl 20 mg PO BID 08/17/21 Diclofenac Sodium [Voltaren] 75 mg PO BID 08/17/21 Fluticasone [Flovent Hfa 110*] 2 sprays IH BID 08/17/21 Ciprofloxacin HCl [Cipro 500 MG Tablet] 500 mg PO BID #10 tab 01/14/22 Diltiazem HCl [Cartia Xt] 120 mg PO BID 01/14/22 Docusate Sodium 100 mg PO DAILY 01/14/22 Ginkgo Biloba 120 mg PO DAILY 01/14/22 Hydrocodone 5/APAP 325 [[place] 5/325] 1 tab PO Q6H PRN #15 tab 01/14/22 Levalbuterol [Xopenex*] 0.63 mg NEB TID PRN 01/14/22 Loratadine [Claritin*] 10 mg PO DAILY 01/14/22 Losartan Potassium 50 mg PO BID 01/14/22 Metformin ER [Glucophage ER*] 500 mg PO DAILY 01/14/22 Mirabegron [Myrbetriq] 50 mg PO DAILY 01/14/22 Pantoprazole [Protonix Tab*] 40 mg PO DAILY 01/14/22 Promethazine HCl 25 mg PO Q6H 01/14/22 Semaglutide [Ozempic] 0.25 mg SQ ONCE 01/14/22 Sucralfate [Carafate*] 1 gm PO ACHS 01/14/22 New Medications: Ciprofloxacin HCl [Cipro 500 MG Tablet] 500 mg PO BID #10 tab Hydrocodone 5/APAP 325 [[place] 5/325] 1 tab PO Q6H PRN #15 tab PRN Reason: Pain Diet: ADA Activity: Ad jeni Followup: Unknown,U [Primary Care Provider] -
[2022-01-14 11:46] VITALS: O2SAT 98
--- NOTE | 2022-01-14 12:13 | RAD REPORT ---
EXAM DESCRIPTION: CT Abdomen and Pelvis Without Intravenous Contrast CLINICAL HISTORY: The patient is 46 years old and is Female; acute right flank pain with dysuria TECHNIQUE: Axial computed tomography images of the abdomen and pelvis without intravenous contrast. Sagittal and coronal reformatted images were created and reviewed. This CT exam was performed usi ng one or more of the following dose reduction techniques: automated exposure control, adjustment o f the mA and/or kV according to patient size, and/or use of iterative reconstruction technique. COMPARISON: CT abdomen and pelvis with contrast October 23, 2021 FINDINGS: Lung bases: Unremarkable. No mass. No consolidation. ABDOMEN: Liver: Hepatomegaly. 8 mm linear hyperdensity along the margin of the right liver. Gallbladder and bile ducts: Gallbladder is surgically absent. No ductal dilation. Pancreas: Unremarkable. No ductal dilation. Spleen: Splenomegaly. Adrenals: Unremarkable. No mass. Kidneys and ureters: Unremarkable. No obstructing stones. No hydronephrosis. Stomach and bowel: Unremarkable. No obstruction. No mucosal thickening. PELVIS: Appendix: No findings to suggest acute appendicitis. Bladder: Unremarkable. No stones. Reproductive: Unremarkable as visualized. ABDOMEN and PELVIS: Intraperitoneal space: Unremarkable. No free air. No significant fluid collection. Bones/joints: No acute fracture. No dislocation. Soft tissues: Unremarkable. Vasculature: Unremarkable. No abdominal aortic aneurysm. Lymph nodes: Unremarkable. No enlarged lymph nodes. IMPRESSION: 1. Hepatomegaly. 2. Splenomegaly. 3. Gallbladder is surgically absent. Electronically signed by: Chemo Soares MD 01/14/2022 2:26 AM CDT Due to temporary technical issues with the PACS/Fluency reporting system, reports are being signed by the in house radiologist without review as a courtesy to ensure prompt reporting. The interpreting r adiologist is fully responsible for the content of the report.
== END 2022-01-14 11:28 | disposition home or self-care (01) ==
LOC: ER 01:03 → ERHOLD 03:31 → INTOOBSV 03:31
PROVIDERS: ADMIT Internal Medicine; ATTEND Internal Medicine
DX: A41.9 Sepsis, unspecified organism (principal); N30.00 Acute cystitis without hematuria; I11.0 Hypertensive heart disease with heart failure; I50.32 Chronic diastolic (congestive) heart failure; E03.9 Hypothyroidism, unspecified; E78.5 Hyperlipidemia, unspecified; J45.909 Unspecified asthma, uncomplicated; G47.30 Sleep apnea, unspecified; D51.0 Vitamin B12 deficiency anemia due to intrinsic factor deficiency; G62.9 Polyneuropathy, unspecified; E78.00 Pure hypercholesterolemia, unspecified; F32.A Depression, unspecified; F41.9 Anxiety disorder, unspecified; F81.9 Developmental disorder of scholastic skills, unspecified; E66.09 Other obesity due to excess calories; Z68.41 Body mass index [BMI] 40.0-44.9, adult; Z20.822 Contact with and (suspected) exposure to COVID-19; Z79.84 Long term (current) use of oral hypoglycemic drugs; Z79.82 Long term (current) use of aspirin; Z79.899 Other long term (current) drug therapy; Z88.0 Allergy status to penicillin; Z88.6 Allergy status to analgesic agent; Z88.8 Allergy status to other drugs, medicaments and biological substances; Z90.49 Acquired absence of other specified parts of digestive tract; Z98.51 Tubal ligation status; Z82.49 Family history of ischemic heart disease and other diseases of the circulatory system; Z83.3 Family history of diabetes mellitus; Z82.61 Family history of arthritis; Z84.1 Family history of disorders of kidney and ureter
CPT/HCPCS: 96365; 96361; 87040 ×2; 87088; 85025; 87086; 36415; 81025; 82947; 83605 ×2; 87077; 87186; 83690; 80053; 84145; 0240U; 76377; 74176; 96375; 99285; 96366; J1650; J2270; J7030 ×3; J2405 ×2; J0744 ×2; G0378 ×2; 81003; 81015

== ENCOUNTER 2022-02-02 12:09 | Emergency (ER) | payer OTHER ==
--- OUTSIDE RECORDS SUMMARY | 2022-02-02 12:17 | XMS REPORT | Continuity of Care Document ---
:1975 Author Organization [facility] t Address [address] [place] [address] Care Team Providers Name Role Phone SCOTTY JOLLY Primary Care Physician Unavailable REJI Attending Clinician Unavailable Tirso OLIVEIRA Attending Clinician Unavailable Bernadette HENRIQUEZ Attending Clinician Unavailable FRANCIA ANTONIO Attending Clinician Unavailable BRUNILDA Attending Clinician Unavailable BRUNILDA Attending Clinician Unavailable Barry BARR Attending Clinician Unavailable Momo TITUS S Attending Clinician Scotty Jolly MD Attending Clinician Tirso Oliveira MD Attending Clinician Dulce Maria HINTON Attending Clinician Unavailable Mary Jane HOLLINS, H Attending Clinician Doctor Unassigned, Name Attending Clinician Unavailable Bryan Abernathy MD Attending Clinician Reji HOLLINS Attending Clinician Eladia Attending Clinician Unavailable Gomez HOLLINS, K.H. Attending Clinician Dulce Maria HINTON Admitting Clinician Unavailable Eladia Admitting Clinician Unavailable Payers Payer Name Policy Type Policy Number Effective Date Expiration Date Barry [facility] DUAL [id number] 2021 COMP CHOICE PPO 00:00:[address] [facility] [id number] 2021 00:00:00 [facility] DAYHR8 2021 (MEDICARE 00:00:00 REPLACEMENT HMO) Advance Directives Directive Decision Effective Termination Comments Source Date Date Healthcare Agents on N/A NPI: 1831 FileNameRelationshipHealthcare [id number] Agent RelationshipCommunicationDelpha PriceMotherHealth Care [phone] (Mobile) Kei AguillonFather[facility] [phone] (Mobile) Problems Condition Condition Condition Status Onset Resolution Last Treating Co mments Source Name Details Category Date Date Treatment Clinician Date Weakening Weakening Disease Active NPI :183 of pelvic of pelvic 4-08 1318 781 fundus fundus 00:00: 00 Intestinal Intestinal Disease Active Overview : NPI:183 metaplasia metaplasia 4-05 Formattin 6945121 of body of of body of 00:00: g of this stomach stomach 00 note without without might be dysplasia dysplasia different from the original. Added automatic ally from request for surgery [id number] Chronic Chronic Disease Active Overview: NPI: 183 superficia superficia 4-05 Formattin 2000264 l l 00:00: g of this gastritis gastritis 00 note without without might be bleeding bleeding different from the original. Added automatic ally from request for surgery [id number] Hyperplast Hyperplast Disease Active Overview : NPI:183 ic polyps ic polyps 4-05 Formattin 1 055469 of stomach of stomach 00:00: g of this 00 note might be different from the original. Added automatic ally from request for surgery [id number] Indigestio Indigestio Disease Active 2020-09 Overview : NPI:183 n n 2-15 Formattin 6255824 00:00: g of this 00 note might be different from the original. Added automatic ally from request for surgery [id number] Bloating Bloating Disease Active 2020-09 Overview: SHIFT COORDINATOR I:183 2-15 Formattin 3130468 00:00: g of this 00 note might be different from the original. Added automatic ally from request for surgery [id number] Dental Dental Disease Active NPI:183 caries caries 5-20 8093023 00:00: 00 Chronic Chronic Disease Active NPI:183 dental dental 5-20 2651951 pain pain 00:00: 00 Macrogloss Macrogloss Disease Active N PI:183 ia ia 5-20 8939526 00:00: 00 Type 2 Type 2 Disease Active 2019-09 NPI:183 diabetes diabetes 2-16 989365 1 mellitus mellitus 00:00: with with 00 hyperglyce hyperglyce gallito, gallito, without without long-term long-term current current use of use of insulin insulin Morbid Morbid Disease Active NPI:183 obesity obesity 5-06 3997481 with body with body 00:00: mass index mass index 00 of of 40.0-49.9 40.0-49.9 SI joint SI joint Disease Active NPI:1 83 arthritis arthritis 1-11 1318 781 00:00: 00 Umbilical Umbilical Disease Active NPI :183 hernia hernia 1-11 1884748 00:00: 00 Renal Renal Disease Active NPI:183 cyst, cyst, 11 4725880 right right 00:00: 00 GERD GERD Disease Active 2016-09 NPI:183 (gastroeso (gastroeso 2-04 13 02372 phageal phageal 00:00: reflux reflux 00 disease) disease) Trochanter Trochanter Disease Active 2016-09 N PI:183 ic ic 2-04 9155077 bursitis bursitis 00:00: of both of both 00 hips hips Intellectu Intellectu Disease Active N PI:183 al al 9-14 7727954 disability disability 00:00: 00 MJ MJ Disease Active NPI:183 (obstructi (obstructi 04-12 13 02212 ve sleep ve sleep 00:00: apnea) apnea) 00 Multiple Multiple Disease Active NPI:1 83 thyroid thyroid 7-10 4789107 nodules nodules 00:00: 00 Tremor Tremor Disease Active NPI:183 7-10 7857149 00:00: 00 Twitching Twitching Disease Active NPI :183 7-10 9857055 00:00: 00 Asthma, Asthma, Disease Active NPI:183 mild mild 5-23 6279584 persistent persistent 00:00: 00 Fatty Fatty Disease Active NPI:183 liver liver 3-24 6049947 00:00: 00 Hepatomega Hepatomega Disease Active N PI:183 ly ly 3-24 6041181 00:00: 00 Obesity Obesity Disease Active NPI:183 (BMI (BMI 2-12 0831396 30-39.9) 30-39.9) 00:00: 00 Sinus Sinus Disease Active NPI:183 tachycardi tachycardi 1- 13 00965 a a 00:00: 00 Dyslipidem Dyslipidem Disease Active 2015-09 N PI:183 ia ia 1-22 3750060 00:00: 00 Vitamin Vitamin Disease Active 2015-09 NPI:183 B12 B12 1-10 0618250 deficiency deficiency 00:00: 00 Hemolytic Hemolytic Disease Active NPI :183 anemia anemia 6-09 8206053 00:00: 00 Abnormal Abnormal Disease Active NPI:1 83 uterine uterine 523 9232583 bleeding bleeding 00:00: 00 Submucous Submucous Disease Active NPI :183 leiomyoma leiomyoma 523 1318 781 of uterus of uterus 00:00: 00 Encounter Encounter Disease Active NPI :183 for blood for blood 2-16 1318 781 transfusio transfusio 00:00: n n 00 History of History of Disease Active N PI:183 tubal tubal 2-05 3716018 ligation ligation 00:00: 00 Recurrent Recurrent Disease Active NPI :183 major major 2-05 3090739 depressive depressive 00:00: disorder, disorder, 00 in in remission remission Hypothyroi Hypothyroi Disease Active N PI:183 d d 2- 0500257 00:00: 00 Essential Essential Disease Active NPI :183 hypertensi hypertensi 2-05 13 11281 on, benign on, benign 00:00: 00 Well woman Well woman Disease Active N PI:183 exam exam 2- 7480049 00:00: 00 Chest pain Chest pain Disease Active N PI:183 9-13 5581264 00:00: 00 Peripheral Peripheral Disease Active N PI:183 neuropathy neuropathy 13 93825 Enlarged Enlarged Disease Active NPI:1 83 heart heart 3706468 PCOS PCOS Disease Active NPI:183 (polycysti (polycysti 13 37666 c ovarian c ovarian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) Allergies, Adverse Reactions, Alerts Allergy Allergy Status Severity Reaction(s) Onset Inactive Treating Comm ents Source Name Type Date Date Clinician Milk Propensi Active Other - See sneeze NPI :183 ty to comments 05-09 9727082 adverse 00:00: reaction 00 s MILK DRUG Active Other-Cmnt NPI:18 3 INGREDI 05-09 7522725 00:00: 00 Tomato Propensi Active Other - See Tomato NPI :183 ty to comments 04-03 source 4655779 adverse 00:00: reportedl reaction 00 y causes s excessive sneezing. But pt still eats it. TOMATO DRUG Active Low Other-Cmnt NPI:18 3 INGREDI 04-03 3128470 00:00: 00 Codeine Propensi Active Itching NPI:18 3 ty to 10-12 3886741 adverse 00:00: reaction 00 s CODEINE DRUG Active Low ITCHING NPI:183 INGREDI 10-12 6444800 00:00: 00 Lorazepa Propensi Active Swelling 2016-09 Hard to NPI :183 m ty to 0-02 swallow 3958033 adverse 00:00: reaction 00 s LORAZEPA DRUG Active High Swelling 2016-09 NPI:18 3 M INGREDI 0-02 3398975 00:00: 00 Diphenhy Propensi Active Swelling NPI: 183 dramine ty to 04-12 0612558 Hcl adverse 00:00: reaction 00 s DIPHENHY DRUG Active High Swelling NPI:18 3 DRAMINE INGREDI 04-12 2105877 HCL 00:00: 00 Benzonat Propensi Active Swelling Tightness N PI:183 ate ty to 11-04 in 0438493 adverse 00:00: throat, reaction 00 difficult s to y drug swallowin g and breathing BENZONAT DRUG Active High Swelling NPI:18 3 ATE INGREDI 11-04 1031888 00:00: 00 Meclizin Propensi Active Anaphylaxis N PI:183 e ty to 10-18 0560035 adverse 00:00: reaction 00 s MECLIZIN DRUG Active High Anaphylaxis NPI :183 E INGREDI 10-18 4319893 00:00: 00 Amoxicil Propensi Active Hives NPI:18 3 franca ty to 05-30 8109051 adverse 00:00: reaction 00 s Meperidi Propensi Active Hallucinatio NPI:183 ne Hcl ty to ns 05-30 6884250 adverse 00:00: reaction 00 s Ziprasid Propensi Active Hives NPI:18 3 one Hcl ty to 05-30 9160344 adverse 00:00: reaction 00 s MEPERIDI DRUG Active High Hallucinates SHIFT COORDINATOR I:183 NE HCL INGREDI 05-30 2572723 00:00: 00 ZIPRASID DRUG Active High Hives NPI:183 ONE HCL INGREDI 05-30 1974739 00:00: 00 AMOXICIL DRUG Active Med Hives NPI:183 FRANCA INGREDI 05-30 0860441 00:00: 00 Social History Social Habit Start Date Stop Date Quantity Comments Source Exposure to 2022-01-15 2022-01-25 Not sure NPI:[id number] 1 SARS-CoV-2 (event) 00:00:00 10:27:00 Alcohol intake 2022-01-11 2022-01-11 0 /d NPI:[id number] 00:00:00 00:00:00 Cigarettes smoked 2015-05-31 2015-05-31 NPI:919 [id number] current (pack per 00:00:00 00:00:00 day) - Reported Cigarette pack-years 2015-05-31 2015-05-31 00:00:00 00:00:00 Tobacco use and 2015-05-31 2015-05-31 Never used NPI:[id number] 36859 exposure 00:00:00 00:00:00 History of tobacco 1982-10-20 2007-10-20 Smoker NPI:18 [id number] use 00:00:00 00:00:00 [birth year] NPI :[id number] 00:00:00 00:00:00 Smoking Status Start Date Stop Date Source Former smoker 2015-05-31 00:00:00 2015-05-31 00:00:00 NPI:1831 [id number] Medications Ordered Filled Start Stop Current Ordering Indication Dosage Frequency Signature Comments Components Source Medication Medication Date Date Medication? Clinician (SIG) Name Name amitriptyli 2021-0 Yes [id number] 100mg Take 2 NPI:183 ne 50 mg 4-[place] [id number] 81 tablet 00:00: mouth at 00 bedtime. pregabalin 2021-0 Yes [id number] 150mg Take 1 NPI:183 150 mg 4-29 capsule by [id number] capsule 00:00: mouth 3 00 (three) times daily. busPIRone 2021-0 Yes [id number] 20mg Take 2 SHIFT COORDINATOR I:183 10 mg 4-29 tablets by [id number] tablet 00:00: mouth 2 00 (two) times daily. citalopram 2021-0 Yes [id number] 40mg Take 1 N PI:183 40 mg 4-29 tablet by [id number] tablet 00:00: mouth 00 daily. amitriptyli 2021-0 Yes [id number] 100mg Take 2 NPI:183 ne 50 mg 4-29 [place] 92217 81 tablet 00:00: mouth at 00 bedtime. pregabalin 2021-0 Yes [id number] 150mg Take 1 NPI:183 150 mg 4-29 capsule by [id number] capsule 00:00: mouth 3 00 (three) times daily. busPIRone 2021-0 Yes [id number] 20mg Take 2 SHIFT COORDINATOR I:183 10 mg 4-29 tablets by [id number] tablet 00:00: mouth 2 00 (two) times daily. citalopram 2021-0 Yes [id number] 40mg Take 1 N PI:183 40 mg 4-29 tablet by [id number] tablet 00:00: mouth 00 daily. amitriptyli 2021-0 Yes [id number] 100mg Take 2 NPI:183 ne 50 mg 4-29 [place] 63723 81 tablet 00:00: mouth at 00 bedtime. pregabalin 2021-0 Yes [id number] 150mg Take 1 NPI:183 150 mg 4-29 capsule by [id number] capsule 00:00: mouth 3 00 (three) times daily. busPIRone 2021-0 Yes [id number] 20mg Take 2 SHIFT COORDINATOR I:183 10 mg 4-29 tablets by [id number] tablet 00:00: mouth 2 00 (two) times daily. citalopram 2021-0 Yes [id number] 40mg Take 1 N PI:183 40 mg 4-29 tablet by [id number] tablet 00:00: mouth 00 daily. amitriptyli 2-0 Yes [id number] 100mg Take 2 NPI:183 ne 50 mg 4-29 [place] 37749 81 tablet 00:00: mouth at 00 bedtime. pregabalin 2-0 Yes [id number] 150mg Take 1 NPI:183 150 mg 4-29 capsule by [id number] capsule 00:00: mouth 3 00 (three) times daily. busPIRone 2021-0 Yes [id number] 20mg Take 2 SHIFT COORDINATOR I:183 10 mg 4-29 tablets by [id number] tablet 00:00: mouth 2 00 (two) times daily. citalopram 2021-0 Yes [id number] 40mg Take 1 N PI:183 40 mg 4-29 tablet by [id number] tablet 00:00: mouth 00 daily. amitriptyli 2021-0 Yes [id number] 100mg Take 2 NPI:183 ne 50 mg 4-[place] 60817 81 tablet 00:00: mouth at 00 bedtime. pregabalin 2-0 Yes [id number] 150mg Take 1 NPI:183 150 mg 4-29 capsule by [id number] capsule 00:00: mouth 3 00 (three) times daily. busPIRone 2021-0 Yes [id number] 20mg Take 2 SHIFT COORDINATOR I:183 10 mg 4-29 tablets by [id number] tablet 00:00: mouth 2 00 (two) times daily. citalopram 2-0 Yes [id number] 40mg Take 1 N PI:183 40 mg 4-29 tablet by [id number] tablet 00:00: mouth 00 daily. amitriptyli 2021-0 Yes [id number] 100mg Take 2 NPI:183 ne 50 mg 4-29 [place] [address]30 81 tablet 00:00: mouth at 00 bedtime. pregabalin 2022-0 Yes [id number] 150mg Take 1 NPI:183 150 mg 4-29 capsule by [id number] capsule 00:00: mouth 3 00 (three) times daily. busPIRone 2-0 Yes [id number] 20mg Take 2 SHIFT COORDINATOR I:183 10 mg 4-29 tablets by [id number] tablet 00:00: mouth 2 00 (two) times daily. citalopram 0 Yes [id number] 40mg Take 1 N PI:183 40 mg 4-29 tablet by [id number] tablet 00:00: mouth 00 daily. amitriptyli 2021-0 Yes [id number] 100mg Take 2 NPI:183 ne 50 mg 4-29 [place] [id number] 81 tablet 00:00: mouth at 00 bedtime. pregabalin 2021-0 Yes [id number] 150mg Take 1 NPI:183 150 mg 4-29 capsule by [id number] capsule 00:00: mouth 3 00 (three) times daily. busPIRone 2021-0 Yes [id number] 20mg Take 2 SHIFT COORDINATOR I:183 10 mg 4-29 tablets by [id number] tablet 00:00: mouth 2 00 (two) times daily. citalopram 0 Yes [id number] 40mg Take 1 N PI:183 40 mg 4-29 tablet by [id number] tablet 00:00: mouth 00 daily. citalopram 2021-0 Yes [id number] 40mg Take 1 N PI:183 40 mg 4-26 tablet by [id number] tablet 00:00: mouth 00 daily. citalopram 0 Yes [id number] 40mg Take 1 N PI:183 40 mg 4-26 tablet by [id number] tablet 00:00: mouth 00 daily. citalopram 0 Yes [id number] 40mg Take 1 N PI:183 40 mg 4-26 tablet by [id number] tablet 00:00: mouth 00 daily. citalopram 0 2021- No [id number] 40mg Take 1 NPI:183 40 mg 4-26 04-29 tablet by [id number] tablet 00:00: 00:00 mouth 00 :00 daily. pantoprazol 2021-0 Yes [id number] 40mg Take 1 NPI:183 e 40 mg EC 4-04 tablet by 1318 781 tablet 00:00: mouth 00 daily. pantoprazol 2021-0 Yes [id number] 40mg Take 1 NPI:183 e 40 mg EC 4-04 tablet by 1318 781 tablet 00:00: mouth 00 daily. pantoprazol 2021-0 Yes [id number] 40mg Take 1 NPI:183 e 40 mg EC 4-04 tablet by 1318 781 tablet 00:00: mouth 00 daily. pantoprazol 2-0 Yes [id number] 40mg Take 1 NPI:183 e 40 mg EC 4-04 tablet by 1318 781 tablet 00:00: mouth 00 daily. pantoprazol 2-0 Yes [id number] 40mg Take 1 NPI:183 e 40 mg EC 4-04 tablet by 1318 781 tablet 00:00: mouth 00 daily. pantoprazol 2-0 Yes [id number] 40mg Take 1 NPI:183 e 40 mg EC 4-04 tablet by 1318 781 tablet 00:00: mouth 00 daily. pantoprazol 2-0 Yes [id number] 40mg Take 1 NPI:183 e 40 mg EC 4-04 tablet by 1318 781 tablet 00:00: mouth 00 daily. pantoprazol 2-0 Yes [id number] 40mg Take 1 NPI:183 e 40 mg EC 4-04 tablet by 1318 781 tablet 00:00: mouth 00 daily. pantoprazol 2021-0 Yes [id number] 40mg Take 1 NPI:183 e 40 mg EC 4-04 tablet by 1318 781 tablet 00:00: mouth 00 daily. pantoprazol 2021-0 Yes [id number] 40mg Take 1 NPI:183 e 40 mg EC 4-04 tablet by 1318 781 tablet 00:00: mouth 00 daily. pantoprazol 2-0 Yes [id number] 40mg Take 1 NPI:183 e 40 mg EC 4-04 tablet by 1318 781 tablet 00:00: mouth 00 daily. pantoprazol 2-0 Yes [id number] 40mg Take 1 NPI:183 e 40 mg EC 4-04 tablet by 1318 781 tablet 00:00: mouth 00 daily. pantoprazol 2-0 Yes [id number] 40mg Take 1 NPI:183 e 40 mg EC 4-04 tablet by 1318 781 tablet 00:00: mouth 00 daily. pantoprazol 2-0 Yes [id number] 40mg Take 1 NPI:183 e 40 mg EC 4-04 tablet by 1318 781 tablet 00:00: mouth 00 daily. FOLIC ACID 2021-0 Yes Take by NPI :183 ORAL 3-18 mouth [id number] 14:37: daily. 08 MULTIVIT 202-0 Yes Take by NPI:1 83 &MINERALS/F 3-18 mouth. [id number] 1 ERROUS FUM 14:37: (MULTI 08 VITAMIN ORAL) METHYLCELLU 2021-0 Yes NPI:18 3 LOSE (FIBER 3-18 [id number] THERAPY 14:37: MISC) 08 DOCUSATE 2021-0 Yes Take by NPI:1 83 SODIUM 3-18 mouth. [id number] (COLACE 14:37: ORAL) 08 vitamin C 2021-0 Yes 1000mg Take 1,000 NPI:183 with derrell 3-18 mg by [id number] hips 14:37: mouth (VITAMIN C) 08 daily. 1,000 mg tablet cholecalcif 2021-0 Yes 1000U Take 1,000 NPI:183 edmar, 3-18 Units by [id number] vitamin D3, 14:37: mouth (VITAMIN 08 daily. D3) 1,000 unit tablet CRANBERRY 0 Yes Take by NPI: 183 FRUIT 3-18 mouth [id number] EXTRACT 14:37: daily. (CRANBERRY 08 ORAL) CALCIUM 2021-0 Yes Take by NPI:18 3 ORAL 3-18 mouth [id number] 14:37: daily. 08 DOCOSAHEXAN 0 Yes 1000mg Take 1,000 NPI:183 OIC 3-18 mg by [id number] ACID/EPA 14:37: mouth (FISH OIL 08 daily. ORAL) BIOTIN ORAL 2021-0 Yes Take by SHIFT COORDINATOR I:183 3-18 mouth. [id number] 14:37: 08 FOLIC ACID 2021-0 Yes Take by NPI :183 ORAL 3-18 mouth [id number] 14:37: daily. 08 MULTIVIT 2021-0 Yes Take by NPI:1 83 &MINERALS/F 3-18 mouth. [id number] 1 ERROUS FUM 14:37: (MULTI 08 VITAMIN ORAL) METHYLCELLU 2022-0 Yes NPI:18 3 LOSE (FIBER 3-18 [id number] THERAPY 14:37: MISC) 08 DOCUSATE 202-0 Yes Take by NPI:1 83 SODIUM 3-18 mouth. [id number] (COLACE 14:37: ORAL) 08 vitamin C 2021-0 Yes 1000mg Take 1,000 NPI:183 with derrell 3-18 mg by [id number] hips 14:37: mouth (VITAMIN C) 08 daily. 1,000 mg tablet cholecalcif 202-0 Yes 1000U Take 1,000 NPI:183 edmar, 3-18 Units by [id number] vitamin D3, 14:37: mouth (VITAMIN 08 daily. D3) 1,000 unit tablet CRANBERRY 2021-0 Yes Take by NPI: 183 FRUIT 3-18 mouth [id number] EXTRACT 14:37: daily. (CRANBERRY 08 ORAL) CALCIUM 2021-0 Yes Take by NPI:18 3 ORAL 3-18 mouth [id number] 14:37: daily. 08 DOCOSAHEXAN 2021-0 Yes 1000mg Take 1,000 NPI:183 OIC 3-18 mg by [id number] ACID/EPA 14:37: mouth (FISH OIL 08 daily. ORAL) BIOTIN ORAL 2021-0 Yes Take by SHIFT COORDINATOR I:183 3-18 mouth. [id number] 14:37: 08 FOLIC ACID 2021-0 Yes Take by NPI :183 ORAL 3-18 mouth [id number] 14:37: daily. 08 MULTIVIT 2021-0 Yes Take by NPI:1 83 &MINERALS/F 3-18 mouth. 820852 1 ERROUS FUM 14:37: (MULTI 08 VITAMIN ORAL) METHYLCELLU 2021-0 Yes NPI:18 3 LOSE (FIBER 3-18 [id number] THERAPY 14:37: MISC) 08 DOCUSATE 2021-0 Yes Take by NPI:1 83 SODIUM 3-18 mouth. [id number] (COLACE 14:37: ORAL) 08 vitamin C 2021-0 Yes 1000mg Take 1,000 NPI:183 with derrell 3-18 mg by [id number] hips 14:37: mouth (VITAMIN C) 08 daily. 1,000 mg tablet cholecalcif 2021-0 Yes 1000U Take 1,000 NPI:183 edmar, 3-18 Units by [id number] vitamin D3, 14:37: mouth (VITAMIN 08 daily. D3) 1,000 unit tablet CRANBERRY 202-0 Yes Take by NPI: 183 FRUIT 3-18 mouth [id number] EXTRACT 14:37: daily. (CRANBERRY 08 ORAL) CALCIUM 2021-0 Yes Take by NPI:18 3 ORAL 3-18 mouth [id number] 14:37: daily. 08 DOCOSAHEXAN 2021-0 Yes 1000mg Take 1,000 NPI:183 OIC 3-18 mg by [id number] ACID/EPA 14:37: mouth (FISH OIL 08 daily. ORAL) BIOTIN ORAL 2021-0 Yes Take by SHIFT COORDINATOR I:183 3-18 mouth. [id number] 14:37: 08 FOLIC ACID 2021-0 Yes Take by NPI :183 ORAL 3-18 mouth [id number] 14:37: daily. 08 MULTIVIT 202-0 Yes Take by NPI:1 83 &MINERALS/F 3-18 mouth. [id number] 1 ERROUS FUM 14:37: (MULTI 08 VITAMIN ORAL) METHYLCELLU 2021-0 Yes NPI:18 3 LOSE (FIBER 3-18 [id number] THERAPY 14:37: MISC) 08 DOCUSATE 2021-0 Yes Take by NPI:1 83 SODIUM 3-18 mouth. [id number] (COLACE 14:37: ORAL) 08 vitamin C 0 Yes 1000mg Take 1,000 NPI:183 with derrell 3-18 mg by [id number] hips 14:37: mouth (VITAMIN C) 08 daily. 1,000 mg tablet cholecalcif 0 Yes 1000U Take 1,000 NPI:183 edmar, 3-18 Units by [id number] vitamin D3, 14:37: mouth (VITAMIN 08 daily. D3) 1,000 unit tablet CRANBERRY 2021-0 Yes Take by NPI: 183 FRUIT 3-18 mouth [id number] EXTRACT 14:37: daily. (CRANBERRY 08 ORAL) CALCIUM 0 Yes Take by NPI:18 3 ORAL 3-18 mouth [id number] 14:37: daily. 08 DOCOSAHEXAN 0 Yes 1000mg Take 1,000 NPI:183 OIC 3-18 mg by [id number] ACID/EPA 14:37: mouth (FISH OIL 08 daily. ORAL) BIOTIN ORAL 202-0 Yes Take by SHIFT COORDINATOR I:183 3-18 mouth. [id number] 14:37: 08 FOLIC ACID 2021-0 Yes Take by NPI :183 ORAL 3-18 mouth [id number] 14:37: daily. 08 MULTIVIT 2021-0 Yes Take by NPI:1 83 &MINERALS/F 3-18 mouth. [id number] 1 ERROUS FUM 14:37: (MULTI 08 VITAMIN ORAL) METHYLCELLU 202-0 Yes NPI:18 3 LOSE (FIBER 3-18 [id number] THERAPY 14:37: MISC) 08 DOCUSATE 2021-0 Yes Take by NPI:1 83 SODIUM 3-18 mouth. [id number] (COLACE 14:37: ORAL) 08 vitamin C 2021-0 Yes 1000mg Take 1,000 NPI:183 with derrell 3-18 mg by [id number] hips 14:37: mouth (VITAMIN C) 08 daily. 1,000 mg tablet cholecalcif 2021-0 Yes 1000U Take 1,000 NPI:183 edmar, 3-18 Units by [id number] vitamin D3, 14:37: mouth (VITAMIN 08 daily. D3) 1,000 unit tablet CRANBERRY 2021-0 Yes Take by NPI: 183 FRUIT 3-18 mouth [id number] EXTRACT 14:37: daily. (CRANBERRY 08 ORAL) CALCIUM 2021-0 Yes Take by NPI:18 3 ORAL 3-18 mouth [id number] 14:37: daily. 08 DOCOSAHEXAN 0 Yes 1000mg Take 1,000 NPI:183 OIC 3-18 mg by [id number] ACID/EPA 14:37: mouth (FISH OIL 08 daily. ORAL) BIOTIN ORAL 2021-0 Yes Take by SHIFT COORDINATOR I:183 3-18 mouth. 8538227 14:37: 08 FOLIC ACID 2021-0 Yes Take by NPI :183 ORAL 3-18 mouth [id number] 14:37: daily. 08 MULTIVIT 2021-0 Yes Take by NPI:1 83 &MINERALS/F 3-18 mouth. [id number] 1 ERROUS FUM 14:37: (MULTI 08 VITAMIN ORAL) METHYLCELLU 2021-0 Yes NPI:18 3 LOSE (FIBER 3-18 [id number] THERAPY 14:37: MISC) 08 DOCUSATE 2021-0 Yes Take by NPI:1 83 SODIUM 3-18 mouth. [id number] (COLACE 14:37: ORAL) 08 vitamin C 2021-0 Yes 1000mg Take 1,000 NPI:183 with derrell 3-18 mg by [id number] hips 14:37: mouth (VITAMIN C) 08 daily. 1,000 mg tablet cholecalcif 2021-0 Yes 1000U Take 1,000 NPI:183 edmar, 3-18 Units by [id number] vitamin D3, 14:37: mouth (VITAMIN 08 daily. D3) 1,000 unit tablet CRANBERRY 0 Yes Take by NPI: 183 FRUIT 3-18 mouth [id number] EXTRACT 14:37: daily. (CRANBERRY 08 ORAL) CALCIUM 0 Yes Take by NPI:18 3 ORAL 3-18 mouth [id number] 14:37: daily. 08 DOCOSAHEXAN 0 Yes 1000mg Take 1,000 NPI:183 OIC 3-18 mg by [id number] ACID/EPA 14:37: mouth (FISH OIL 08 daily. ORAL) BIOTIN ORAL 2021-0 Yes Take by SHIFT COORDINATOR I:183 3-18 mouth. [id number] 14:37: 08 FOLIC ACID 2021-0 Yes Take by NPI :183 ORAL 3-18 mouth [id number] 14:37: daily. 08 MULTIVIT 0 Yes Take by NPI:1 83 &MINERALS/F 3-18 mouth. [id number] 1 ERROUS FUM 14:37: (MULTI 08 VITAMIN ORAL) METHYLCELLU 0 Yes NPI:18 3 LOSE (FIBER 3-18 [id number] THERAPY 14:37: MISC) 08 DOCUSATE 0 Yes Take by NPI:1 83 SODIUM 3-18 mouth. [id number] (COLACE 14:37: ORAL) 08 vitamin C 0 Yes 1000mg Take 1,000 NPI:183 with derrell 3-18 mg by [id number] hips 14:37: mouth (VITAMIN C) 08 daily. 1,000 mg tablet cholecalcif 0 Yes 1000U Take 1,000 NPI:183 edmar, 3-18 Units by [id number] vitamin D3, 14:37: mouth (VITAMIN 08 daily. D3) 1,000 unit tablet CRANBERRY 0 Yes Take by NPI: 183 FRUIT 3-18 mouth [id number] EXTRACT 14:37: daily. (CRANBERRY 08 ORAL) CALCIUM 0 Yes Take by NPI:18 3 ORAL 3-18 mouth [id number] 14:37: daily. 08 DOCOSAHEXAN 2021-0 Yes 1000mg Take 1,000 NPI:183 OIC 3-18 mg by [id number] ACID/EPA 14:37: mouth (FISH OIL 08 daily. ORAL) BIOTIN ORAL 2021-0 Yes Take by SHIFT COORDINATOR I:183 3-18 mouth. [id number] 14:37: 08 FOLIC ACID 2022-0 Yes Take by NPI :183 ORAL 3-18 mouth [id number] 14:37: daily. 08 MULTIVIT 2021-0 Yes Take by NPI:1 83 &MINERALS/F 3-18 mouth. [id number] 1 ERROUS FUM 14:37: (MULTI 08 VITAMIN ORAL) METHYLCELLU 0 Yes NPI:18 3 LOSE (FIBER 3-18 [id number] THERAPY 14:37: MISC) 08 DOCUSATE 0 Yes Take by NPI:1 83 SODIUM 3-18 mouth. [id number] (COLACE 14:37: ORAL) 08 vitamin C 0 Yes 1000mg Take 1,000 NPI:183 with derrell 3-18 mg by [id number] hips 14:37: mouth (VITAMIN C) 08 daily. 1,000 mg tablet cholecalcif 0 Yes 1000U Take 1,000 NPI:183 edmar, 3-18 Units by [id number] vitamin D3, 14:37: mouth (VITAMIN 08 daily. D3) 1,000 unit tablet CRANBERRY Yes Take by NPI: 183 FRUIT 3-18 mouth [id number] EXTRACT 14:37: daily. (CRANBERRY 08 ORAL) CALCIUM 0 Yes Take by NPI:18 3 ORAL 3-18 mouth [id number] 14:37: daily. 08 DOCOSAHEXAN 0 Yes 1000mg Take 1,000 NPI:183 OIC 3-18 mg by [id number] ACID/EPA 14:37: mouth (FISH OIL 08 daily. ORAL) BIOTIN ORAL 0 Yes Take by SHIFT COORDINATOR I:183 3-18 mouth. [id number] 14:37: 08 FOLIC ACID 0 Yes Take by NPI :183 ORAL 3-18 mouth [id number] 14:37: daily. 08 MULTIVIT 0 Yes Take by NPI:1 83 &MINERALS/F 3-18 mouth. [id number] 1 ERROUS FUM 14:37: (MULTI 08 VITAMIN ORAL) METHYLCELLU 2021-0 Yes NPI:18 3 LOSE (FIBER 3-18 [id number] THERAPY 14:37: MISC) 08 DOCUSATE 2021-0 Yes Take by NPI:1 83 SODIUM 3-18 mouth. [id number] (COLACE 14:37: ORAL) 08 vitamin C 0 Yes 1000mg Take 1,000 NPI:183 with derrell 3-18 mg by [id number] hips 14:37: mouth (VITAMIN C) 08 daily. 1,000 mg tablet cholecalcif 2022-0 Yes 1000U Take 1,000 NPI:183 edmar, 3-18 Units by [id number] vitamin D3, 14:37: mouth (VITAMIN 08 daily. D3) 1,000 unit tablet CRANBERRY 202-0 Yes Take by NPI: 183 FRUIT 3-18 mouth [id number] EXTRACT 14:37: daily. (CRANBERRY 08 ORAL) CALCIUM 202-0 Yes Take by NPI:18 3 ORAL 3-18 mouth [id number] 14:37: daily. 08 DOCOSAHEXAN 2021-0 Yes 1000mg Take 1,000 NPI:183 OIC 3-18 mg by [id number] ACID/EPA 14:37: mouth (FISH OIL 08 daily. ORAL) BIOTIN ORAL 2021-0 Yes Take by SHIFT COORDINATOR I:183 3-18 mouth. [id number] 14:37: 08 FOLIC ACID 2021-0 Yes Take by NPI :183 ORAL 3-18 mouth [id number] 14:37: daily. 08 MULTIVIT 0 Yes Take by NPI:1 83 &MINERALS/F 3-18 mouth. [id number] 1 ERROUS FUM 14:37: (MULTI 08 VITAMIN ORAL) METHYLCELLU 2021-0 Yes NPI:18 3 LOSE (FIBER 3-18 [id number] THERAPY 14:37: MISC) 08 DOCUSATE 0 Yes Take by NPI:1 83 SODIUM 3-18 mouth. [id number] (COLACE 14:37: ORAL) 08 vitamin C 2021-0 Yes 1000mg Take 1,000 NPI:183 with derrell 3-18 mg by [id number] hips 14:37: mouth (VITAMIN C) 08 daily. 1,000 mg tablet cholecalcif 202-0 Yes 1000U Take 1,000 NPI:183 edmar, 3-18 Units by [id number] vitamin D3, 14:37: mouth (VITAMIN 08 daily. D3) 1,000 unit tablet CRANBERRY 202-0 Yes Take by NPI: 183 FRUIT 3-18 mouth [id number] EXTRACT 14:37: daily. (CRANBERRY 08 ORAL) CALCIUM 2021-0 Yes Take by NPI:18 3 ORAL 3-18 mouth [id number] 14:37: daily. 08 DOCOSAHEXAN 202-0 Yes 1000mg Take 1,000 NPI:183 OIC 3-18 mg by [id number] ACID/EPA 14:37: mouth (FISH OIL 08 daily. ORAL) BIOTIN ORAL 2021-0 Yes Take by SHIFT COORDINATOR I:183 3-18 mouth. [id number] 14:37: 08 FOLIC ACID 2021-0 Yes Take by NPI :183 ORAL 3-18 mouth [id number] 14:37: daily. 08 MULTIVIT 202-0 Yes Take by NPI:1 83 &MINERALS/F 3-18 mouth. [id number] 1 ERROUS FUM 14:37: (MULTI 08 VITAMIN ORAL) METHYLCELLU 202-0 Yes NPI:18 3 LOSE (FIBER 3-18 [id number] THERAPY 14:37: MISC) 08 DOCUSATE 2021-0 Yes Take by NPI:1 83 SODIUM 3-18 mouth. [id number] (COLACE 14:37: ORAL) 08 vitamin C 0 Yes 1000mg Take 1,000 NPI:183 with derrell 3-18 mg by [id number] hips 14:37: mouth (VITAMIN C) 08 daily. 1,000 mg tablet cholecalcif 0 Yes 1000U Take 1,000 NPI:183 edmar, 3-18 Units by [id number] vitamin D3, 14:37: mouth (VITAMIN 08 daily. D3) 1,000 unit tablet CRANBERRY 0 Yes Take by NPI: 183 FRUIT 3-18 mouth [id number] EXTRACT 14:37: daily. (CRANBERRY 08 ORAL) CALCIUM 0 Yes Take by NPI:18 3 ORAL 3-18 mouth [id number] 14:37: daily. 08 DOCOSAHEXAN 2021-0 Yes 1000mg Take 1,000 NPI:183 OIC 3-18 mg by [id number] ACID/EPA 14:37: mouth (FISH OIL 08 daily. ORAL) BIOTIN ORAL 202-0 Yes Take by SHIFT COORDINATOR I:183 3-18 mouth. [id number] 14:37: 08 FOLIC ACID 2021-0 Yes Take by NPI :183 ORAL 3-18 mouth [id number] 14:37: daily. 08 MULTIVIT 202-0 Yes Take by NPI:1 83 &MINERALS/F 3-18 mouth. [id number] 1 ERROUS FUM 14:37: (MULTI 08 VITAMIN ORAL) METHYLCELLU 202-0 Yes NPI:18 3 LOSE (FIBER 3-18 [id number] THERAPY 14:37: MISC) 08 DOCUSATE 2021-0 Yes Take by NPI:1 83 SODIUM 3-18 mouth. [id number] (COLACE 14:37: ORAL) 08 vitamin C 2021-0 Yes 1000mg Take 1,000 NPI:183 with derrell 3-18 mg by [id number] hips 14:37: mouth (VITAMIN C) 08 daily. 1,000 mg tablet cholecalcif 2021-0 Yes 1000U Take 1,000 NPI:183 edmar, 3-18 Units by [id number] vitamin D3, 14:37: mouth (VITAMIN 08 daily. D3) 1,000 unit tablet CRANBERRY 2021-0 Yes Take by NPI: 183 FRUIT 3-18 mouth [id number] EXTRACT 14:37: daily. (CRANBERRY 08 ORAL) CALCIUM 2021-0 Yes Take by NPI:18 3 ORAL 3-18 mouth [id number] 14:37: daily. 08 DOCOSAHEXAN 2021-0 Yes 1000mg Take 1,000 NPI:183 OIC 3-18 mg by [id number] ACID/EPA 14:37: mouth (FISH OIL 08 daily. ORAL) BIOTIN ORAL 2021-0 Yes Take by SHIFT COORDINATOR I:183 3-18 mouth. [id number] 14:37: 08 FOLIC ACID 2021-0 Yes Take by NPI :183 ORAL 3-18 mouth [id number] 14:37: daily. 08 MULTIVIT 2021-0 Yes Take by NPI:1 83 &MINERALS/F 3-18 mouth. [id number] 1 ERROUS FUM 14:37: (MULTI 08 VITAMIN ORAL) METHYLCELLU 2022-0 Yes NPI:18 3 LOSE (FIBER 3-18 [id number] THERAPY 14:37: MISC) 08 DOCUSATE 202-0 Yes Take by NPI:1 83 SODIUM 3-18 mouth. [id number] (COLACE 14:37: ORAL) 08 vitamin C 2021-0 Yes 1000mg Take 1,000 NPI:183 with derrell 3-18 mg by [id number] hips 14:37: mouth (VITAMIN C) 08 daily. 1,000 mg tablet cholecalcif 2021-0 Yes 1000U Take 1,000 NPI:183 edmar, 3-18 Units by [id number] vitamin D3, 14:37: mouth (VITAMIN 08 daily. D3) 1,000 unit tablet CRANBERRY 202-0 Yes Take by NPI: 183 FRUIT 3-18 mouth [id number] EXTRACT 14:37: daily. (CRANBERRY 08 ORAL) CALCIUM 2021-0 Yes Take by NPI:18 3 ORAL 3-18 mouth [id number] 14:37: daily. 08 DOCOSAHEXAN 2021-0 Yes 1000mg Take 1,000 NPI:183 OIC 3-18 mg by [id number] ACID/EPA 14:37: mouth (FISH OIL 08 daily. ORAL) BIOTIN ORAL 2021-0 Yes Take by SHIFT COORDINATOR I:183 3-18 mouth. [id number] 14:37: 08 FOLIC ACID 2021-0 Yes Take by NPI :183 ORAL 3-18 mouth [id number] 14:37: daily. 08 MULTIVIT 0 Yes Take by NPI:1 83 &MINERALS/F 3-18 mouth. [id number] 1 ERROUS FUM 14:37: (MULTI 08 VITAMIN ORAL) METHYLCELLU 2021-0 Yes NPI:18 3 LOSE (FIBER 3-18 [id number] THERAPY 14:37: MISC) 08 DOCUSATE 0 Yes Take by NPI:1 83 SODIUM 3-18 mouth. [id number] (COLACE 14:37: ORAL) 08 vitamin C 2021-0 Yes 1000mg Take 1,000 NPI:183 with derrell 3-18 mg by [id number] hips 14:37: mouth (VITAMIN C) 08 daily. 1,000 mg tablet cholecalcif 0 Yes 1000U Take 1,000 NPI:183 edmar, 3-18 Units by [id number] vitamin D3, 14:37: mouth (VITAMIN 08 daily. D3) 1,000 unit tablet CRANBERRY 2021-0 Yes Take by NPI: 183 FRUIT 3-18 mouth [id number] EXTRACT 14:37: daily. (CRANBERRY 08 ORAL) CALCIUM 2021-0 Yes Take by NPI:18 3 ORAL 3-18 mouth [id number] 14:37: daily. 08 DOCOSAHEXAN 2021-0 Yes 1000mg Take 1,000 NPI:183 OIC 3-18 mg by [id number] ACID/EPA 14:37: mouth (FISH OIL 08 daily. ORAL) BIOTIN ORAL 2021-0 Yes Take by SHIFT COORDINATOR I:183 3-18 mouth. [id number] 14:37: 08 Blood-Gluco 2022-0 Yes [id number] Use twice NPI:183 se Meter 3-08 a day for 275736 1 (ONETOUCH 00:00: ICD CODE VERIO FLEX E11.65 START) Kit Blood-Gluco 2022-0 Yes [id number] Use twice NPI:183 se Meter 3-08 a day for 810923 1 (ONETOUCH 00:00: ICD CODE VERIO FLEX E11.65 START) Kit Blood-Gluco 2022-0 Yes [id number] Use twice NPI:183 se Meter 3-08 a day for 982992 1 (ONETOUCH 00:00: ICD CODE VERIO FLEX E11.65 START) Kit Blood-Gluco 2022-0 Yes [id number] Use twice NPI:183 se Meter 3-08 a day for 031499 1 (ONETOUCH 00:00: ICD CODE VERIO FLEX E11.65 START) Kit Blood-Gluco 2022-0 Yes [id number] Use twice NPI:183 se Meter 3-08 a day for 458858 1 (ONETOUCH 00:00: ICD CODE VERIO FLEX E11.65 START) Kit Blood-Gluco 2022-0 Yes [id number] Use twice NPI:183 se Meter 3-08 a day for 518136 1 (ONETOUCH 00:00: ICD CODE VERIO FLEX E11.65 START) Kit Blood-Gluco 2022-0 Yes [id number] Use twice NPI:183 se Meter 3-08 a day for 892638 1 (ONETOUCH 00:00: ICD CODE VERIO FLEX E11.65 START) Kit Blood-Gluco 2022-0 Yes [id number] Use twice NPI:183 se Meter 3-08 a day for 166050 1 (ONETOUCH 00:00: ICD CODE VERIO FLEX E11.65 START) Kit Blood-Gluco 2022-0 Yes [id number] Use twice NPI:183 se Meter 3-08 a day for 699469 1 (ONETOUCH 00:00: ICD CODE VERIO FLEX E11.65 START) Kit Blood-Gluco 2022-0 Yes [id number] Use twice NPI:183 se Meter 3-08 a day for 348197 1 (ONETOUCH 00:00: ICD CODE VERIO FLEX E11.65 START) Kit Blood-Gluco 2022-0 Yes [id number] Use twice NPI:183 se Meter 3-08 a day for 349602 1 (ONETOUCH 00:00: ICD CODE VERIO FLEX E11.65 START) Kit Blood-Gluco 2022-0 Yes [id number] Use twice NPI:183 se Meter 3-08 a day for 269672 1 (ONETOUCH 00:00: ICD CODE VERIO FLEX E11.65 START) Kit Blood-Gluco 2022-0 Yes [id number] Use twice NPI:183 se Meter 3-08 a day for 471894 1 (ONETOUCH 00:00: ICD CODE VERIO FLEX E11.65 START) Kit Blood-Gluco 2022-0 Yes [id number] Use twice NPI:183 se Meter 3-08 a day for 986108 1 (ONETOUCH 00:00: ICD CODE VERIO FLEX E11.65 START) Kit sucralfate 2022-0 Yes [id number] 1g Take 1 N PI:183 1 gram 2-20 tablet by [id number] tablet 00:00: mouth 00 before meals and at bedtime. sucralfate 2022-0 Yes [id number] 1g Take 1 N PI:183 1 gram 2-20 tablet by [id number] tablet 00:00: mouth 00 before meals and at bedtime. sucralfate 2022-0 Yes [id number] 1g Take 1 N PI:183 1 gram 2-20 tablet by [id number] tablet 00:00: mouth 00 before meals and at bedtime. sucralfate 2022-0 Yes [id number] 1g Take 1 N PI:183 1 gram 2-20 tablet by [id number] tablet 00:00: mouth 00 before meals and at bedtime. sucralfate 2022-0 Yes [id number] 1g Take 1 N PI:183 1 gram 2-20 tablet by [id number] tablet 00:00: mouth 00 before meals and at bedtime. sucralfate 2022-0 Yes [id number] 1g Take 1 N PI:183 1 gram 2-20 tablet by [id number] tablet 00:00: mouth 00 before meals and at bedtime. sucralfate 2022-0 Yes [id number] 1g Take 1 N PI:183 1 gram 2-20 tablet by [id number] tablet 00:00: mouth 00 before meals and at bedtime. sucralfate 2022-0 Yes [id number] 1g Take 1 N PI:183 1 gram 2-20 tablet by [id number] tablet 00:00: mouth 00 before meals and at bedtime. sucralfate 2022-0 Yes [id number] 1g Take 1 N PI:183 1 gram 2-20 tablet by [id number] tablet 00:00: mouth 00 before meals and at bedtime. sucralfate 2022-0 Yes [id number] 1g Take 1 N PI:183 1 gram 2-20 tablet by [id number] tablet 00:00: mouth 00 before meals and at bedtime. sucralfate 2-0 Yes [id number] 1g Take 1 N PI:183 1 gram 2-20 tablet by [id number] tablet 00:00: mouth 00 before meals and at bedtime. sucralfate 2022-0 Yes [id number] 1g Take 1 N PI:183 1 gram 2-20 tablet by [id number] tablet 00:00: mouth 00 before meals and at bedtime. sucralfate 2-0 Yes [id number] 1g Take 1 N PI:183 1 gram 2-20 tablet by [id number] tablet 00:00: mouth 00 before meals and at bedtime. sucralfate 2021-0 Yes [id number] 1g Take 1 N PI:183 1 gram 2-20 tablet by [id number] tablet 00:00: mouth 00 before meals and at bedtime. Lancing 0 Yes [id number] To use NPI: 183 Device with 2-08 twice a 08810 81 Lancets 00:00: day for (ONE TOUCH 00 ICD code DELICA) Kit E11.65 blood sugar 2021-0 Yes [id number] Use twice NPI:183 diagnostic 2-08 a day for 1318 781 (ONETOUCH 00:00: ICD CODE VERIO TEST 00 E11.65 STRIPS) strip Lancing 2021-0 Yes [id number] To use NPI: 183 Device with 2-08 twice a 12831 81 Lancets 00:00: day for (ONE TOUCH 00 ICD code DELICA) Kit E11.65 blood sugar 2021-0 Yes [id number] Use twice NPI:183 diagnostic 2-08 a day for 1318 781 (ONETOUCH 00:00: ICD CODE VERIO TEST 00 E11.65 STRIPS) strip Lancing 2021-0 Yes [id number] To use NPI: 183 Device with 2-08 twice a 69535 81 Lancets 00:00: day for (ONE TOUCH 00 ICD code DELICA) Kit E11.65 blood sugar 2021-0 Yes [id number] Use twice NPI:183 diagnostic 2-08 a day for 1318 781 (ONETOUCH 00:00: ICD CODE VERIO TEST 00 E11.65 STRIPS) strip Lancing 2021-0 Yes [id number] To use NPI: 183 Device with 2-08 twice a 29456 81 Lancets 00:00: day for (ONE TOUCH 00 ICD code DELICA) Kit E11.65 blood sugar 2021-0 Yes [id number] Use twice NPI:183 diagnostic 2-08 a day for 1318 781 (ONETOUCH 00:00: ICD CODE VERIO TEST 00 E11.65 STRIPS) strip Lancing 2021-0 Yes [id number] To use NPI: 183 Device with 2-08 twice a 79449 81 Lancets 00:00: day for (ONE TOUCH 00 ICD code DELICA) Kit E11.65 blood sugar 2021-0 Yes [id number] Use twice NPI:183 diagnostic 2-08 a day for 1318 781 (ONETOUCH 00:00: ICD CODE VERIO TEST 00 E11.65 STRIPS) strip Lancing 2021-0 Yes [id number] To use NPI: 183 Device with 2-08 twice a 30961 81 Lancets 00:00: day for (ONE TOUCH 00 ICD code DELICA) Kit E11.65 blood sugar 2021-0 Yes [id number] Use twice NPI:183 diagnostic 2-08 a day for 1318 781 (ONETOUCH 00:00: ICD CODE VERIO TEST 00 E11.65 STRIPS) strip Lancing 2021-0 Yes [id number] To use NPI: 183 Device with 2-08 twice a 11967 81 Lancets 00:00: day for (ONE TOUCH 00 ICD code DELICA) Kit E11.65 blood sugar 2021-0 Yes [id number] Use twice NPI:183 diagnostic 2-08 a day for 1318 781 (ONETOUCH 00:00: ICD CODE VERIO TEST 00 E11.65 STRIPS) strip Lancing 2021-0 Yes [id number] To use NPI: 183 Device with 2-08 twice a 60460 81 Lancets 00:00: day for (ONE TOUCH 00 ICD code DELICA) Kit E11.65 blood sugar 2022-0 Yes [id number] Use twice NPI:183 diagnostic 2-08 a day for 1318 781 (ONETOUCH 00:00: ICD CODE VERIO TEST 00 E11.65 STRIPS) strip Lancing 2021-0 Yes [id number] To use NPI: 183 Device with 2-08 twice a 28910 81 Lancets 00:00: day for (ONE TOUCH 00 ICD code DELICA) Kit E11.65 blood sugar 2021-0 Yes [id number] Use twice NPI:183 diagnostic 2-08 a day for 1318 781 (ONETOUCH 00:00: ICD CODE VERIO TEST 00 E11.65 STRIPS) strip Lancing 2021-0 Yes [id number] To use NPI: 183 Device with 2-08 twice a 58483 81 Lancets 00:00: day for (ONE TOUCH 00 ICD code DELICA) Kit E11.65 blood sugar 2021-0 Yes [id number] Use twice NPI:183 diagnostic 2-08 a day for 1318 781 (ONETOUCH 00:00: ICD CODE VERIO TEST 00 E11.65 STRIPS) strip Lancing 2021-0 Yes [id number] To use NPI: 183 Device with 2-08 twice a 01463 81 Lancets 00:00: day for (ONE TOUCH 00 ICD code DELICA) Kit E11.65 blood sugar 2-0 Yes [id number] Use twice NPI:183 diagnostic 2-08 a day for 1318 781 (ONETOUCH 00:00: ICD CODE VERIO TEST 00 E11.65 STRIPS) strip Lancing 2021-0 Yes [id number] To use NPI: 183 Device with 2-08 twice a 17717 81 Lancets 00:00: day for (ONE TOUCH 00 ICD code DELICA) Kit E11.65 blood sugar 2022-0 Yes [id number] Use twice NPI:183 diagnostic 2-08 a day for 1318 781 (ONETOUCH 00:00: ICD CODE VERIO TEST 00 E11.65 STRIPS) strip Lancing 2021-0 Yes [id number] To use NPI: 183 Device with 2-08 twice a 86205 81 Lancets 00:00: day for (ONE TOUCH 00 ICD code DELICA) Kit E11.65 blood sugar 2021-0 Yes [id number] Use twice NPI:183 diagnostic 2-08 a day for 1318 781 (ONETOUCH 00:00: ICD CODE VERIO TEST 00 E11.65 STRIPS) strip Lancing 2021-0 Yes [id number] To use NPI: 183 Device with 2-08 twice a 80440 81 Lancets 00:00: day for (ONE TOUCH 00 ICD code DELICA) Kit E11.65 blood sugar 2021-0 Yes [id number] Use twice NPI:183 diagnostic 2-08 a day for 1318 781 (ONETOUCH 00:00: ICD CODE VERIO TEST 00 E11.65 STRIPS) strip mirabegron 2021-0 Yes [id number] 50mg Take 1 NPI:183 (MYRBETRIQ) 1-18 tablet by 131 8781 50 mg 00:00: mouth tablet 00 daily. mirabegron 2021-0 Yes [id number] 50mg Take 1 NPI:183 (MYRBETRIQ) 1-18 tablet by 131 8781 50 mg 00:00: mouth tablet 00 daily. mirabegron 2021-0 Yes [id number] 50mg Take 1 NPI:183 (MYRBETRIQ) 1-18 tablet by 131 8781 50 mg 00:00: mouth tablet 00 daily. mirabegron 2021-0 Yes [id number] 50mg Take 1 NPI:183 (MYRBETRIQ) 1-18 tablet by 131 8781 50 mg 00:00: mouth tablet 00 daily. mirabegron 2021-0 Yes [id number] 50mg Take 1 NPI:183 (MYRBETRIQ) 1-18 tablet by 131 8781 50 mg 00:00: mouth tablet 00 daily. mirabegron 2022-0 Yes [id number] 50mg Take 1 NPI:183 (MYRBETRIQ) 1-18 tablet by 131 8781 50 mg 00:00: mouth tablet 00 daily. mirabegron 2-0 Yes [id number] 50mg Take 1 NPI:183 (MYRBETRIQ) 1-18 tablet by 131 8781 50 mg 00:00: mouth tablet 00 daily. mirabegron 2022-0 Yes [id number] 50mg Take 1 NPI:183 (MYRBETRIQ) 1-18 tablet by 131 8781 50 mg 00:00: mouth tablet 00 daily. mirabegron 2022-0 Yes [id number] 50mg Take 1 NPI:183 (MYRBETRIQ) 1-18 tablet by 131 8781 50 mg 00:00: mouth tablet 00 daily. mirabegron 2022-0 Yes [id number] 50mg Take 1 NPI:183 (MYRBETRIQ) 1-18 tablet by 131 8781 50 mg 00:00: mouth tablet 00 daily. mirabegron 2-0 Yes [id number] 50mg Take 1 NPI:183 (MYRBETRIQ) 1-18 tablet by 131 8781 50 mg 00:00: mouth tablet 00 daily. mirabegron 2-0 Yes [id number] 50mg Take 1 NPI:183 (MYRBETRIQ) 1-18 tablet by 131 8781 50 mg 00:00: mouth tablet 00 daily. mirabegron 2-0 Yes [id number] 50mg Take 1 NPI:183 (MYRBETRIQ) 1-18 tablet by 131 8781 50 mg 00:00: mouth tablet 00 daily. mirabegron 2-0 Yes [id number] 50mg Take 1 NPI:183 (MYRBETRIQ) 1-18 tablet by 131 8781 50 mg 00:00: mouth tablet 00 daily. semaglutide 2020-09 Yes [id number] Inject NPI:183 (OZEMPIC) 2-01 0.25 mg [id number] 0.25 mg or 00:00: under the 0.5 mg(2 00 skin mg/1.5 mL) weekly. PnIj metformin 2020-09 Yes [id number] 500mg Take 1 N PI:183 ER 500 mg 2-01 [place] 48241 81 24 hr 00:00: mouth tablet 00 daily with breakfast. STOP REGULAR METFORMIN. semaglutide 2020-09 Yes [id number] Inject NPI:183 (OZEMPIC) 2-01 0.25 mg [id number] 0.25 mg or 00:00: under the 0.5 mg(2 00 skin mg/1.5 mL) weekly. PnIj metformin 2020-09 Yes [id number] 500mg Take 1 N PI:183 ER 500 mg 2-01 tablet by 10465 81 24 hr 00:00: mouth tablet 00 daily with breakfast. STOP REGULAR METFORMIN. semaglutide 2020-09 Yes [id number] Inject NPI:183 (OZEMPIC) 2-01 0.25 mg [id number] 0.25 mg or 00:00: under the 0.5 mg(2 00 skin mg/1.5 mL) weekly. PnIj metformin 2020-09 Yes [id number] 500mg Take 1 N PI:183 ER 500 mg 2-01 tablet by 14851 81 24 hr 00:00: mouth tablet 00 daily with breakfast. STOP REGULAR METFORMIN. semaglutide 2020-09 Yes [id number] Inject NPI:183 (OZEMPIC) 2-01 0.25 mg [id number] 0.25 mg or 00:00: under the 0.5 mg(2 00 skin mg/1.5 mL) weekly. PnIj metformin 2020-09 Yes [id number] 500mg Take 1 N PI:183 ER 500 mg 2-01 tablet by 54331 81 24 hr 00:00: mouth tablet 00 daily with breakfast. STOP REGULAR METFORMIN. semaglutide 2020-09 Yes [id number] Inject NPI:183 (OZEMPIC) 2-01 0.25 mg [id number] 0.25 mg or 00:00: under the 0.5 mg(2 00 skin mg/1.5 mL) weekly. PnIj metformin 2020-09 Yes [id number] 500mg Take 1 N PI:183 ER 500 mg 2-01 tablet by 39633 81 24 hr 00:00: mouth tablet 00 daily with breakfast. STOP REGULAR METFORMIN. semaglutide 2020-09 Yes [id number] Inject NPI:183 (OZEMPIC) 2-01 0.25 mg [id number] 0.25 mg or 00:00: under the 0.5 mg(2 00 skin mg/1.5 mL) weekly. PnIj metformin 2020-09 Yes [id number] 500mg Take 1 N PI:183 ER 500 mg 2-01 [place] 49860 81 24 hr 00:00: mouth tablet 00 daily with breakfast. STOP REGULAR METFORMIN. semaglutide 2020-09 Yes [id number] Inject NPI:183 (OZEMPIC) 2-01 0.25 mg [id number] 0.25 mg or 00:00: under the 0.5 mg(2 00 skin mg/1.5 mL) weekly. PnIj metformin 2020-09 Yes [id number] 500mg Take 1 N PI:183 ER 500 mg 2-01 tablet by 00957 81 24 hr 00:00: mouth tablet 00 daily with breakfast. STOP REGULAR METFORMIN. semaglutide 2020-09 Yes [id number] Inject NPI:183 (OZEMPIC) 2-01 0.25 mg [id number] 0.25 mg or 00:00: under the 0.5 mg(2 00 skin mg/1.5 mL) weekly. PnIj metformin 2020-09 Yes [id number] 500mg Take 1 N PI:183 ER 500 mg 2-01 tablet by 90145 81 24 hr 00:00: mouth tablet 00 daily with breakfast. STOP REGULAR METFORMIN. semaglutide 2020-09 Yes [id number] Inject NPI:183 (OZEMPIC) 2-01 0.25 mg [id number] 0.25 mg or 00:00: under the 0.5 mg(2 00 skin mg/1.5 mL) weekly. PnIj metformin 2020-09 Yes [id number] 500mg Take 1 N PI:183 ER 500 mg 2-01 tablet by 87239 81 24 hr 00:00: mouth tablet 00 daily with breakfast. STOP REGULAR METFORMIN. semaglutide 2020-09 Yes [id number] Inject NPI:183 (OZEMPIC) 2-01 0.25 mg [id number] 0.25 mg or 00:00: under the 0.5 mg(2 00 skin mg/1.5 mL) weekly. PnIj metformin 2020-09 Yes [id number] 500mg Take 1 N PI:183 ER 500 mg 2-01 tablet by 74720 81 24 hr 00:00: mouth tablet 00 daily with breakfast. STOP REGULAR METFORMIN. semaglutide 2020-09 Yes [id number] Inject NPI:183 (OZEMPIC) 2-01 0.25 mg [id number] 0.25 mg or 00:00: under the 0.5 mg(2 00 skin mg/1.5 mL) weekly. PnIj metformin 2020-09 Yes [id number] 500mg Take 1 N PI:183 ER 500 mg 2-01 tablet by 59325 81 24 hr 00:00: mouth tablet 00 daily with breakfast. STOP REGULAR METFORMIN. semaglutide 2020-09 Yes [id number] Inject NPI:183 (OZEMPIC) 2-01 0.25 mg [id number] 0.25 mg or 00:00: under the 0.5 mg(2 00 skin mg/1.5 mL) weekly. PnIj metformin 2020-09 Yes [id number] 500mg Take 1 N PI:183 ER 500 mg 2-01 tablet by 54616 81 24 hr 00:00: mouth tablet 00 daily with breakfast. STOP REGULAR METFORMIN. semaglutide 2020-09 Yes [id number] Inject NPI:183 (OZEMPIC) 2-01 0.25 mg [id number] 0.25 mg or 00:00: under the 0.5 mg(2 00 skin mg/1.5 mL) weekly. PnIj metformin 2020-09 Yes [id number] 500mg Take 1 N PI:183 ER 500 mg 2-01 [place] 32079 81 24 hr 00:00: mouth tablet 00 daily with breakfast. STOP REGULAR METFORMIN. semaglutide 2020-09 Yes [id number] Inject NPI:183 (OZEMPIC) 2-01 0.25 mg [id number] 0.25 mg or 00:00: under the 0.5 mg(2 00 skin mg/1.5 mL) weekly. PnIj metformin 2020-09 Yes [id number] 500mg Take 1 N PI:183 ER 500 mg 2-01 tablet by 79002 81 24 hr 00:00: mouth tablet 00 daily with breakfast. STOP REGULAR METFORMIN. pregabalin 2020-09 Yes [id number] 150mg Take 1 NPI:183 150 mg 1-09 capsule by [id number] capsule 00:00: mouth 3 00 (three) times daily. amitriptyli 2020-09 Yes [id number] 100mg Take 2 NPI:183 ne 50 mg 1-09 tablets [place] 01971 81 tablet 00:00: mouth at 00 bedtime. diclofenac 2020-09 Yes [id number] 75mg Take 1 NPI:183 75 mg EC 1-09 tablet by 150754 1 tablet 00:00: mouth 2 00 (two) times daily with meals as needed for Pain. USE SPARINGLY DUE TO POSSIBLE SIDE EFFECTS. rosuvastati 2020-09 Yes [id number] 10mg Take 1 NPI:183 n 10 mg -09 tablet by [id number] tablet 00:00: mouth at 00 bedtime. cyanocobala 2020-09 Yes [id number] 1000ug 1 mL by NPI:183 min 1,000 10-04 Intramuscu 1318 781 mcg/mL 00:00: lar route injection 00 every 2 (two) weeks. Insulin 2020-09 Yes [id number] Use as NPI: 183 [place], 10-04 directed [id number] Disposable, 00:00: to inject (PEN 00 Ozempic NEEDLE) 32 once gauge x weekly " Ndle levothyroxi 2020-09 Yes [id number] 50ug Take 1 NPI:183 ne 50 mcg 10-04 [place] 41298 81 tablet 00:00: mouth 00 every morning. fluticasone 2020-09 Yes [id number] 2{puff} Inhale 2 NPI:183 propionate - Puffs 9048423 (FLOVENT 00:00: every 12 HFA) 110 00 (twelve) mcg/actuati hours. on inhaler Rinse mouth after each use. levalbutero 2020-09 Yes [id number] .63mg Inhale NPI:183 l 0.63 mg/3 09 0.63 mg 3 131 8781 mL 00:00: (three) nebulizer 00 times solution daily as needed for Wheezing or Shortness of Breath. losartan 50 2020-09 Yes [id number] 50mg Take 1 NPI:183 mg tablet -09 tablet [place] 39973 81 00:00: mouth 2 00 (two) times daily. clotrimazol 2020-09 Yes [id number] Apply to NPI:183 e-betametha 10-04 area(s) 2 131 8781 sone cream 00:00: (two) 00 times daily. cyclobenzap 2020-09 Yes [id number] TAKE 1 NPI:183 rine 5 mg -09 [place] 42278 81 tablet 00:00: MOUTH 00 EVERY 8 HOURS NEEDED citalopram 2020-09 Yes [id number] 40mg Take 1 N PI:183 40 mg -09 tablet by 8019574 tablet 00:00: mouth 00 daily. econazole 2020-09 Yes [id number] Apply to NPI:183 nitrate 1 % 09 area(s) 2 131 8781 cream 00:00: (two) 00 times daily. albuterol 2020-09 Yes [id number] 2{puff} Inhale 2 NPI:183 (PROAIR 1-09 Puffs 5675403 HFA) 90 00:00: every 6 mcg/actuati 00 (six) on inhaler hours as needed for Wheezing or Shortness of Breath. triamcinolo 2020-09 Yes [id number] Apply to NPI:183 ne 0.025 % 10-04 area(s) 3 1318 781 ointment 00:00: (three) 00 times daily. For itching diltiazem 2020-09 Yes [id number] 120mg Take 1 N PI:183 (CARTIA XT) 1-09 capsule by 13 18688 120 mg 24 00:00: mouth 2 hr capsule 00 (two) times daily. busPIRone 2020-09 Yes [id number] 20mg Take 2 SHIFT COORDINATOR I:183 10 mg -09 tablets by [id number] tablet 00:00: mouth 2 00 (two) times daily. lancets 2020-09 Yes [id number] Use twice N PI:183 (ONE TOUCH -09 a day for 1318 781 DELICA) 33 00:00: ICD code gauge Misc 00 E11.65 pregabalin 2020-09 Yes [id number] 150mg Take 1 NPI:183 150 mg -09 capsule by [id number] capsule 00:00: mouth 3 00 (three) times daily. amitriptyli 2020-09 Yes [id number] 100mg Take 2 NPI:183 ne 50 mg 1-[place] [id number] 81 tablet 00:00: mouth at 00 bedtime. diclofenac 2020-09 Yes [id number] 75mg Take 1 NPI:183 75 mg EC -09 tablet by [id number] 1 tablet 00:00: mouth 2 00 (two) times daily with meals as needed for Pain. USE SPARINGLY DUE TO POSSIBLE SIDE EFFECTS. rosuvastati 2020-09 Yes [id number] 10mg Take 1 NPI:183 n 10 mg 1-09 tablet by [id number] tablet 00:00: mouth at 00 bedtime. cyanocobala 2020-09 Yes [id number] 1000ug 1 mL by NPI:183 min 1,000 10-04 Intramuscu 1318 781 mcg/mL 00:00: lar route injection 00 every 2 (two) weeks. Insulin 2020-09 Yes [id number] Use as NPI: 183 [place], 10-04 directed [id number] Disposable, 00:00: to inject (PEN 00 Ozempic NEEDLE) 32 once gauge x weekly " Ndle levothyroxi 2020-09 Yes [id number] 50ug Take 1 NPI:183 ne 50 mcg -[place] [id number] 81 tablet 00:00: mouth 00 every morning. fluticasone 2020-09 Yes [id number] 2{puff} Inhale 2 NPI:183 propionate -09 Puffs [id number] (FLOVENT 00:00: every 12 HFA) 110 00 (twelve) mcg/actuati hours. on inhaler Rinse mouth after each use. levalbutero 2020-09 Yes [id number] .63mg Inhale NPI:183 l 0.63 mg/3 09 0.63 mg 3 131 8781 mL 00:00: (three) nebulizer 00 times solution daily as needed for Wheezing or Shortness of Breath. losartan 50 2020-09 Yes [id number] 50mg Take 1 NPI:183 mg tablet 10-[place] [id number] 81 00:00: mouth 2 00 (two) times daily. clotrimazol 2020-09 Yes [id number] Apply to NPI:183 e-betametha 10-04 area(s) 2 131 8781 sone cream 00:00: (two) 00 times daily. cyclobenzap 2020-09 Yes [id number] TAKE 1 NPI:183 rine 5 mg -09 [place] [id number] 81 tablet 00:00: MOUTH 00 EVERY 8 HOURS NEEDED citalopram 2020-09 Yes [id number] 40mg Take 1 N PI:183 40 mg -09 tablet by [id number] tablet 00:00: mouth 00 daily. econazole 2020-09 Yes [id number] Apply to NPI:183 nitrate 1 % 10-04 area(s) 2 131 8781 cream 00:00: (two) 00 times daily. albuterol 2020-09 Yes [id number] 2{puff} Inhale 2 NPI:183 (PROAIR 1-09 Puffs [id number] HFA) 90 00:00: every 6 mcg/actuati 00 (six) on inhaler hours as needed for Wheezing or Shortness of Breath. triamcinolo 2020-09 Yes [id number] Apply to NPI:183 ne 0.025 % 10-04 area(s) 3 1318 781 ointment 00:00: (three) 00 times daily. For itching diltiazem 2020-09 Yes [id number] 120mg Take 1 N PI:183 (CARTIA XT) - capsule by 13 [id number] 120 mg 24 00:00: mouth 2 hr capsule 00 (two) times daily. busPIRone 2020-09 Yes [id number] 20mg Take 2 SHIFT COORDINATOR I:183 10 mg - tablets by [id number] tablet 00:00: mouth 2 00 (two) times daily. lancets 2020-09 Yes [id number] Use twice N PI:183 (ONE TOUCH - a day for 5178 581 DELICA) 33 00:00: ICD code gauge Misc 00 E11.65 pregabalin 2020-09 Yes [id number] 150mg Take 1 NPI:183 150 mg 10-04 capsule by [id number] capsule 00:00: mouth 3 00 (three) times daily. amitriptyli 2020-09 Yes [id number] 100mg Take 2 NPI:183 ne 50 mg -09 [place] [id number] 81 tablet 00:00: mouth at 00 bedtime. diclofenac 2020-09 Yes [id number] 75mg Take 1 NPI:183 75 mg EC - tablet by [id number] 1 tablet 00:00: mouth 2 00 (two) times daily with meals as needed for Pain. USE SPARINGLY DUE TO POSSIBLE SIDE EFFECTS. rosuvastati 2020-09 Yes [id number] 10mg Take 1 NPI:183 n 10 mg -09 tablet by [id number] tablet 00:00: mouth at 00 bedtime. cyanocobala 2020-09 Yes [id number] 1000ug 1 mL by NPI:183 min 1,000 10-04 Intramuscu 1318 781 mcg/mL 00:00: lar route injection 00 every 2 (two) weeks. Insulin 2020-09 Yes [id number] Use as NPI: 183 [place], 10-04 directed [id number] Disposable, 00:00: to inject (PEN 00 Ozempic NEEDLE) 32 once gauge x weekly " Ndle levothyroxi 2020-09 Yes [id number] 50ug Take 1 NPI:183 ne 50 mcg 1-09 [place] [id number] 81 tablet 00:00: mouth 00 every morning. fluticasone 2020-09 Yes [id number] 2{puff} Inhale 2 NPI:183 propionate 1-09 Puffs [id number] (FLOVENT 00:00: every 12 HFA) 110 00 (twelve) mcg/actuati hours. on inhaler Rinse mouth after each use. levalbutero 2020-09 Yes [id number] .63mg Inhale NPI:183 l 0.63 mg/3 1-09 0.63 mg 3 131 8781 mL 00:00: (three) nebulizer 00 times solution daily as needed for Wheezing or Shortness of Breath. losartan 50 2020-09 Yes [id number] 50mg Take 1 NPI:183 mg tablet 1-09 [place] [id number] 81 00:00: mouth 2 00 (two) times daily. clotrimazol 2020-09 Yes [id number] Apply to NPI:183 e-betametha -09 area(s) 2 131 8781 sone cream 00:00: (two) 00 times daily. cyclobenzap 2020-09 Yes [id number] TAKE 1 NPI:183 rine 5 mg -09 [place] [id number] 81 tablet 00:00: MOUTH 00 EVERY 8 HOURS NEEDED citalopram 2020-09 Yes [id number] 40mg Take 1 N PI:183 40 mg -09 tablet by [id number] tablet 00:00: mouth 00 daily. econazole 2020-09 Yes [id number] Apply to NPI:183 nitrate 1 % 1-09 area(s) 2 131 8781 cream 00:00: (two) 00 times daily. albuterol 2020-09 Yes [id number] 2{puff} Inhale 2 NPI:183 (PROAIR 1-09 Puffs [id number] HFA) 90 00:00: every 6 mcg/actuati 00 (six) on inhaler hours as needed for Wheezing or Shortness of Breath. triamcinolo 2020-09 Yes [id number] Apply to NPI:183 ne 0.025 % 1-09 area(s) 3 1318 781 ointment 00:00: (three) 00 times daily. For itching diltiazem 2020-09 Yes [id number] 120mg Take 1 N PI:183 (CARTIA XT) -09 capsule by 13 [id number] 120 mg 24 00:00: mouth 2 hr capsule 00 (two) times daily. busPIRone 2020-09 Yes [id number] 20mg Take 2 SHIFT COORDINATOR I:183 10 mg -09 tablets by [id number] tablet 00:00: mouth 2 00 (two) times daily. lancets 2020-09 Yes [id number] Use twice N PI:183 (ONE TOUCH -09 a day for 1318 781 DELICA) 33 00:00: ICD code gauge Misc 00 E11.65 pregabalin 2020-09 Yes [id number] 150mg Take 1 NPI:183 150 mg 10-04 capsule by [id number] capsule 00:00: mouth 3 00 (three) times daily. amitriptyli 2020-09 Yes [id number] 100mg Take 2 NPI:183 ne 50 mg -09 tablets by [id number] 81 tablet 00:00: mouth at 00 bedtime. diclofenac 2020-09 Yes [id number] 75mg Take 1 NPI:183 75 mg EC - tablet by [id number] 1 tablet 00:00: mouth 2 00 (two) times daily with meals as needed for Pain. USE SPARINGLY DUE TO POSSIBLE SIDE EFFECTS. rosuvastati 2020-09 Yes [id number] 10mg Take 1 NPI:183 n 10 mg -09 tablet by [id number] tablet 00:00: mouth at 00 bedtime. cyanocobala 2020-09 Yes [id number] 1000ug 1 mL by NPI:183 min 1,000 - Intramuscu 1318 781 mcg/mL 00:00: lar route injection 00 every 2 (two) weeks. Insulin 2020-09 Yes [id number] Use as NPI: 183 [place], - directed [id number] Disposable, 00:00: to inject (PEN 00 Ozempic NEEDLE) 32 once gauge x weekly " Ndle levothyroxi 2020-09 Yes [id number] 50ug Take 1 NPI:183 ne 50 mcg 1-09 tablet by [id number] 81 tablet 00:00: mouth 00 every morning. fluticasone 2020-09 Yes [id number] 2{puff} Inhale 2 NPI:183 propionate 1-09 Puffs [id number] (FLOVENT 00:00: every 12 HFA) 110 00 (twelve) mcg/actuati hours. on inhaler Rinse mouth after each use. levalbutero 2020-09 Yes [id number] .63mg Inhale NPI:183 l 0.63 mg/3 1-09 0.63 mg 3 131 8781 mL 00:00: (three) nebulizer 00 times solution daily as needed for Wheezing or Shortness of Breath. losartan 50 2020-09 Yes [id number] 50mg Take 1 NPI:183 mg tablet 1-09 tablet by [id number] 81 00:00: mouth 2 00 (two) times daily. clotrimazol 2020-09 Yes [id number] Apply to NPI:183 e-betametha 1-09 area(s) 2 131 8781 sone cream 00:00: (two) 00 times daily. cyclobenzap 2020-09 Yes [id number] TAKE 1 NPI:183 rine 5 mg 1-09 [place] [id number] 81 tablet 00:00: MOUTH 00 EVERY 8 HOURS NEEDED econazole 2020-09 Yes [id number] Apply to NPI:183 nitrate 1 % 1-09 area(s) 2 131 8781 cream 00:00: (two) 00 times daily. albuterol 2020-09 Yes [id number] 2{puff} Inhale 2 NPI:183 (PROAIR 1-09 Puffs [id number] HFA) 90 00:00: every 6 mcg/actuati 00 (six) on inhaler hours as needed for Wheezing or Shortness of Breath. triamcinolo 2020-09 Yes [id number] Apply to NPI:183 ne 0.025 % 1-09 area(s) 3 1318 781 ointment 00:00: (three) 00 times daily. For itching diltiazem 2020-09 Yes [id number] 120mg Take 1 N PI:183 (CARTIA XT) 1-09 capsule by 13 60545 120 mg 24 00:00: mouth 2 hr capsule 00 (two) times daily. busPIRone 2020-09 Yes [id number] 20mg Take 2 SHIFT COORDINATOR I:183 10 mg -09 tablets by [id number] tablet 00:00: mouth 2 00 (two) times daily. lancets 2020-09 Yes [id number] Use twice N PI:183 (ONE TOUCH 1-09 a day for 1318 78Mikayla SEVILLA) 33 00:00: ICD code gauge Misc 00 E11.65 pregabalin 2020-09 Yes [id number] 150mg Take 1 NPI:183 150 mg -09 capsule by [id number] capsule 00:00: mouth 3 00 (three) times daily. amitriptyli 2020-09 Yes [id number] 100mg Take 2 NPI:183 ne 50 mg -09 tablets [place] [id number] 81 tablet 00:00: mouth at 00 bedtime. diclofenac 2020-09 Yes [id number] 75mg Take 1 NPI:183 75 mg EC - tablet by [id number] 1 tablet 00:00: mouth 2 00 (two) times daily with meals as needed for Pain. USE SPARINGLY DUE TO POSSIBLE SIDE EFFECTS. rosuvastati 2020-09 Yes [id number] 10mg Take 1 NPI:183 n 10 mg -09 tablet by [id number] tablet 00:00: mouth at 00 bedtime. cyanocobala 2020-09 Yes [id number] 1000ug 1 mL by NPI:183 min 1,000 -09 Intramuscu 1318 781 mcg/mL 00:00: lar route injection 00 every 2 (two) weeks. Insulin 2020-09 Yes [id number] Use as NPI: 183 [place], -09 directed [id number] Disposable, 00:00: to inject (PEN 00 Ozempic NEEDLE) 32 once gauge x weekly 32" Ndle levothyroxi 2020-09 Yes [id number] 50ug Take 1 NPI:183 ne 50 mcg -09 [place] [id number] 81 tablet 00:00: mouth 00 every morning. fluticasone 2020-09 Yes [id number] 2{puff} Inhale 2 NPI:183 propionate 1-09 Puffs [id number] (FLOVENT 00:00: every 12 HFA) 110 00 (twelve) mcg/actuati hours. on inhaler Rinse mouth after each use. levalbutero 2020-09 Yes [id number] .63mg Inhale NPI:183 l 0.63 mg/3 1-09 0.63 mg 3 131 8781 mL 00:00: (three) nebulizer 00 times solution daily as needed for Wheezing or Shortness of Breath. losartan 50 2020-09 Yes [id number] 50mg Take 1 NPI:183 mg tablet 1-09 tablet by [id number] 81 00:00: mouth 2 00 (two) times daily. clotrimazol 2020-09 Yes [id number] Apply to NPI:183 e-betametha -09 area(s) 2 131 8781 sone cream 00:00: (two) 00 times daily. cyclobenzap 2020-09 Yes [id number] TAKE 1 NPI:183 rine 5 mg -09 [place] [id number] 81 tablet 00:00: MOUTH 00 EVERY 8 HOURS NEEDED econazole 2020-09 Yes [id number] Apply to NPI:183 nitrate 1 % 10-04 area(s) 2 131 8781 cream 00:00: (two) 00 times daily. albuterol 2020-09 Yes [id number] 2{puff} Inhale 2 NPI:183 (PROAIR 1-09 Puffs [id number] HFA) 90 00:00: every 6 mcg/actuati 00 (six) on inhaler hours as needed for Wheezing or Shortness of Breath. triamcinolo 2020-09 Yes [id number] Apply to NPI:183 ne 0.025 % 09 area(s) 3 1318 781 ointment 00:00: (three) 00 times daily. For itching diltiazem 2020-09 Yes [id number] 120mg Take 1 N PI:183 (CARTIA XT) 1-09 capsule by 13 73485 120 mg 24 00:00: mouth 2 hr capsule 00 (two) times daily. busPIRone 2020-09 Yes [id number] 20mg Take 2 SHIFT COORDINATOR I:183 10 mg 1-09 tablets by [id number] tablet 00:00: mouth 2 00 (two) times daily. lancets 2020-09 Yes [id number] Use twice N PI:183 (ONE TOUCH 1-09 a day for 1311 781 DELICA) 33 00:00: ICD code gauge Misc 00 E11.65 amitriptyli 2020-09 Yes [id number] 100mg Take 2 NPI:183 ne 50 mg 1-09 tablets by [id number] 81 tablet 00:00: mouth at 00 bedtime. diclofenac 2020-09 Yes [id number] 75mg Take 1 NPI:183 75 mg EC - tablet by [id number] 1 tablet 00:00: mouth 2 00 (two) times daily with meals as needed for Pain. USE SPARINGLY DUE TO POSSIBLE SIDE EFFECTS. rosuvastati 2020-09 Yes [id number] 10mg Take 1 NPI:183 n 10 mg -09 tablet by [id number] tablet 00:00: mouth at 00 bedtime. cyanocobala 2020-09 Yes [id number] 1000ug 1 mL by NPI:183 min 1,000 - Intramuscu 1318 781 mcg/mL 00:00: lar route injection 00 every 2 (two) weeks. Insulin 2020-09 Yes [id number] Use as NPI: 183 [place], - directed [id number] Disposable, 00:00: to inject (PEN 00 Ozempic NEEDLE) 32 once gauge x weekly 32" Ndle levothyroxi 2020-09 Yes [id number] 50ug Take 1 NPI:183 ne 50 mcg -09 tablet by [id number] 81 tablet 00:00: mouth 00 every morning. fluticasone 2020-09 Yes [id number] 2{puff} Inhale 2 NPI:183 propionate -09 Puffs [id number] (FLOVENT 00:00: every 12 HFA) 110 00 (twelve) mcg/actuati hours. on inhaler Rinse mouth after each use. levalbutero 2020-09 Yes [id number] .63mg Inhale NPI:183 l 0.63 mg/3 09 0.63 mg 3 131 8781 mL 00:00: (three) nebulizer 00 times solution daily as needed for Wheezing or Shortness of Breath. losartan 50 2020-09 Yes [id number] 50mg Take 1 NPI:183 mg tablet -09 tablet by [id number] 81 00:00: mouth 2 00 (two) times daily. clotrimazol 2020-09 Yes [id number] Apply to NPI:183 e-betametha 10-04 area(s) 2 131 8781 sone cream 00:00: (two) 00 times daily. cyclobenzap 2020-09 Yes [id number] TAKE 1 NPI:183 rine 5 mg 1-09 [place] [id number] 81 tablet 00:00: MOUTH 00 EVERY 8 HOURS NEEDED econazole 2020-09 Yes [id number] Apply to NPI:183 nitrate 1 % 1-09 area(s) 2 131 8781 cream 00:00: (two) 00 times daily. albuterol 2020-09 Yes [id number] 2{puff} Inhale 2 NPI:183 (PROAIR 1-09 Puffs [id number] HFA) 90 00:00: every 6 mcg/actuati 00 (six) on inhaler hours as needed for Wheezing or Shortness of Breath. triamcinolo 2020-09 Yes [id number] Apply to NPI:183 ne 0.025 % 10-04 area(s) 3 1318 781 ointment 00:00: (three) 00 times daily. For itching diltiazem 2020-09 Yes [id number] 120mg Take 1 N PI:183 (CARTIA XT) 1-09 capsule by 13 77539 120 mg 24 00:00: mouth 2 hr capsule 00 (two) times daily. busPIRone 2020-09 Yes [id number] 20mg Take 2 SHIFT COORDINATOR I:183 10 mg 1-09 tablets by [id number] tablet 00:00: mouth 2 00 (two) times daily. lancets 2020-09 Yes [id number] Use twice N PI:183 (ONE TOUCH 1-09 a day for 1318 781 DELICA) 33 00:00: ICD code gauge Misc 00 E11.65 diclofenac 2020-09 Yes [id number] 75mg Take 1 NPI:183 75 mg EC 1-09 tablet by [id number] 1 tablet 00:00: mouth 2 00 (two) times daily with meals as needed for Pain. USE SPARINGLY DUE TO POSSIBLE SIDE EFFECTS. rosuvastati 2020-09 Yes [id number] 10mg Take 1 NPI:183 n 10 mg 1-09 tablet by [id number] tablet 00:00: mouth at 00 bedtime. cyanocobala 2020-09 Yes [id number] 1000ug 1 mL by NPI:183 min 1,000 1-09 Intramuscu 1318 781 mcg/mL 00:00: lar route injection 00 every 2 (two) weeks. Insulin 2020-09 Yes [id number] Use as NPI: 183 [place], 1-09 directed [id number] Disposable, 00:00: to inject (PEN 00 Ozempic NEEDLE) 32 once gauge x weekly " Ndle levothyroxi 2020-09 Yes [id number] 50ug Take 1 NPI:183 ne 50 mcg 1-09 tablet by [id number] 81 tablet 00:00: mouth 00 every morning. fluticasone 2020-09 Yes [id number] 2{puff} Inhale 2 NPI:183 propionate 1-09 Puffs [id number] (FLOVENT 00:00: every 12 HFA) 110 00 (twelve) mcg/actuati hours. on inhaler Rinse mouth after each use. levalbutero 2020-09 Yes [id number] .63mg Inhale NPI:183 l 0.63 mg/3 1-09 0.63 mg 3 131 8781 mL 00:00: (three) nebulizer 00 times solution daily as needed for Wheezing or Shortness of Breath. losartan 50 2020-09 Yes [id number] 50mg Take 1 NPI:183 mg tablet 1-09 tablet by [id number] 81 00:00: mouth 2 00 (two) times daily. clotrimazol 2020-09 Yes [id number] Apply to NPI:183 e-betametha 1-09 area(s) 2 131 8781 sone cream 00:00: (two) 00 times daily. cyclobenzap 2020-09 Yes [id number] TAKE 1 NPI:183 rine 5 mg 1-09 [place] [id number] 81 tablet 00:00: MOUTH 00 EVERY 8 HOURS NEEDED econazole 2020-09 Yes [id number] Apply to NPI:183 nitrate 1 % 1-09 area(s) 2 131 8781 cream 00:00: (two) 00 times daily. albuterol 2020-09 Yes [id number] 2{puff} Inhale 2 NPI:183 (PROAIR 1-09 Puffs [id number] HFA) 90 00:00: every 6 mcg/actuati 00 (six) on inhaler hours as needed for Wheezing or Shortness of Breath. triamcinolo 2020-09 Yes [id number] Apply to NPI:183 ne 0.025 % 1-09 area(s) 3 1314 781 ointment 00:00: (three) 00 times daily. For itching diltiazem 2020-09 Yes [id number] 120mg Take 1 N PI:183 (CARTIA XT) 09 capsule by 13 06616 120 mg 24 00:00: mouth 2 hr capsule 00 (two) times daily. lancets 2020-09 Yes [id number] Use twice N PI:183 (ONE TOUCH -09 a day for 1318 781 DELICA) 33 00:00: ICD code gauge Misc 00 E11.65 diclofenac 2020-09 Yes [id number] 75mg Take 1 NPI:183 75 mg EC 10-04 tablet by [id number] 1 tablet 00:00: mouth 2 00 (two) times daily with meals as needed for Pain. USE SPARINGLY DUE TO POSSIBLE SIDE EFFECTS. rosuvastati 2020-09 Yes [id number] 10mg Take 1 NPI:183 n 10 mg 10-04 tablet by [id number] tablet 00:00: mouth at 00 bedtime. cyanocobala 2020-09 Yes [id number] 1000ug 1 mL by NPI:183 min 1,000 10-04 Intramuscu 1318 781 mcg/mL 00:00: lar route injection 00 every 2 (two) weeks. Insulin 2020-09 Yes [id number] Use as NPI: 183 [place], 10-04 directed [id number] Disposable, 00:00: to inject (PEN 00 Ozempic NEEDLE) 32 once gauge x weekly " Ndle levothyroxi 2020-09 Yes [id number] 50ug Take 1 NPI:183 ne 50 mcg 10-04 tablet by [id number] 81 tablet 00:00: mouth 00 every morning. fluticasone 2020-09 Yes [id number] 2{puff} Inhale 2 NPI:183 propionate -09 Puffs [id number] (FLOVENT 00:00: every 12 HFA) 110 00 (twelve) mcg/actuati hours. on inhaler Rinse mouth after each use. levalbutero 2020-09 Yes [id number] .63mg Inhale NPI:183 l 0.63 mg/3 09 0.63 mg 3 131 8781 mL 00:00: (three) nebulizer 00 times solution daily as needed for Wheezing or Shortness of Breath. losartan 50 2020-09 Yes [id number] 50mg Take 1 NPI:183 mg tablet 1-09 tablet by 32784 81 00:00: mouth 2 00 (two) times daily. clotrimazol 2020-09 Yes [id number] Apply to NPI:183 e-betametha 09 area(s) 2 131 8781 sone cream 00:00: (two) 00 times daily. cyclobenzap 2020-09 Yes [id number] TAKE 1 NPI:183 rine 5 mg -09 [place] [id number] 81 tablet 00:00: MOUTH 00 EVERY 8 HOURS NEEDED econazole 2020-09 Yes [id number] Apply to NPI:183 nitrate 1 % 10-04 area(s) 2 131 8781 cream 00:00: (two) 00 times daily. albuterol 2020-09 Yes [id number] 2{puff} Inhale 2 NPI:183 (PROAIR - Puffs [id number] HFA) 90 00:00: every 6 mcg/actuati 00 (six) on inhaler hours as needed for Wheezing or Shortness of Breath. triamcinolo 2020-09 Yes [id number] Apply to NPI:183 ne 0.025 % 10-04 area(s) 3 1318 781 ointment 00:00: (three) 00 times daily. For itching diltiazem 2020-09 Yes [id number] 120mg Take 1 N PI:183 (CARTIA XT) 10-04 capsule by 13 [id number] 120 mg 24 00:00: mouth 2 hr capsule 00 (two) times daily. lancets 2020-09 Yes [id number] Use twice N PI:183 (ONE TOUCH 10-04 a day for 1318 781 DELICA) 33 00:00: ICD code gauge Misc 00 E11.65 diclofenac 2020-09 Yes [id number] 75mg Take 1 NPI:183 75 mg EC -09 tablet by [id number] 1 tablet 00:00: mouth 2 00 (two) times daily with meals as needed for Pain. USE SPARINGLY DUE TO POSSIBLE SIDE EFFECTS. rosuvastati 2020-09 Yes [id number] 10mg Take 1 NPI:183 n 10 mg 1-09 tablet by [id number] tablet 00:00: mouth at 00 bedtime. cyanocobala 2020-09 Yes [id number] 1000ug 1 mL by NPI:183 min 1,000 -09 Intramuscu 1318 781 mcg/mL 00:00: lar route injection 00 every 2 (two) weeks. Insulin 2020-09 Yes [id number] Use as NPI: 183 [place], -09 directed [id number] Disposable, 00:00: to inject (PEN 00 Ozempic NEEDLE) 32 once gauge x weekly " Ndle levothyroxi 2020-09 Yes [id number] 50ug Take 1 NPI:183 ne 50 mcg 1-09 tablet by [id number] 81 tablet 00:00: mouth 00 every morning. fluticasone 2020-09 Yes [id number] 2{puff} Inhale 2 NPI:183 propionate 1-09 Puffs [id number] (FLOVENT 00:00: every 12 HFA) 110 00 (twelve) mcg/actuati hours. on inhaler Rinse mouth after each use. levalbutero 2020-09 Yes [id number] .63mg Inhale NPI:183 l 0.63 mg/3 -09 0.63 mg 3 131 8781 mL 00:00: (three) nebulizer 00 times solution daily as needed for Wheezing or Shortness of Breath. losartan 50 2020-09 Yes [id number] 50mg Take 1 NPI:183 mg tablet -09 tablet by [id number] 81 00:00: mouth 2 00 (two) times daily. clotrimazol 2020-09 Yes [id number] Apply to NPI:183 e-betametha -09 area(s) 2 131 8781 sone cream 00:00: (two) 00 times daily. cyclobenzap 2020-09 Yes [id number] TAKE 1 NPI:183 rine 5 mg 1-09 TABLET BY 54635 81 tablet 00:00: MOUTH 00 EVERY 8 HOURS NEEDED econazole 2020-09 Yes [id number] Apply to NPI:183 nitrate 1 % -09 area(s) 2 131 8781 cream 00:00: (two) 00 times daily. albuterol 2020-09 Yes [id number] 2{puff} Inhale 2 NPI:183 (PROAIR 1-09 Puffs [id number] HFA) 90 00:00: every 6 mcg/actuati 00 (six) on inhaler hours as needed for Wheezing or Shortness of Breath. triamcinolo 2020-09 Yes [id number] Apply to NPI:183 ne 0.025 % 10-04 area(s) 3 1318 781 ointment 00:00: (three) 00 times daily. For itching diltiazem 2020-09 Yes [id number] 120mg Take 1 N PI:183 (CARTIA XT) 10-04 capsule by 13 73458 120 mg 24 00:00: mouth 2 hr capsule 00 (two) times daily. lancets 2020-09 Yes [id number] Use twice N PI:183 (ONE TOUCH -09 a day for 1318 141 DELICA) 33 00:00: ICD code gauge Misc 00 E11.65 diclofenac 2020-09 Yes [id number] 75mg Take 1 NPI:183 75 mg EC 10-04 tablet by [id number] 1 tablet 00:00: mouth 2 00 (two) times daily with meals as needed for Pain. USE SPARINGLY DUE TO POSSIBLE SIDE EFFECTS. rosuvastati 2020-09 Yes [id number] 10mg Take 1 NPI:183 n 10 mg 10-04 tablet by [id number] tablet 00:00: mouth at 00 bedtime. cyanocobala 2020-09 Yes [id number] 1000ug 1 mL by NPI:183 min 1,000 10-04 Intramuscu 1318 781 mcg/mL 00:00: lar route injection 00 every 2 (two) weeks. Insulin 2020-09 Yes [id number] Use as NPI: 183 [place], 10-04 directed [id number] Disposable, 00:00: to inject (PEN 00 Ozempic NEEDLE) 32 once gauge x weekly " Ndle levothyroxi 2020-09 Yes [id number] 50ug Take 1 NPI:183 ne 50 mcg 10-04 [place] [id number] 81 tablet 00:00: mouth 00 every morning. fluticasone 2020-09 Yes [id number] 2{puff} Inhale 2 NPI:183 propionate -09 Puffs [id number] (FLOVENT 00:00: every 12 HFA) 110 00 (twelve) mcg/actuati hours. on inhaler Rinse mouth after each use. levalbutero 2020-09 Yes [id number] .63mg Inhale NPI:183 l 0.63 mg/3 -09 0.63 mg 3 131 8781 mL 00:00: (three) nebulizer 00 times solution daily as needed for Wheezing or Shortness of Breath. losartan 50 2020-09 Yes [id number] 50mg Take 1 NPI:183 mg tablet -09 [place] 23182 81 00:00: mouth 2 00 (two) times daily. clotrimazol 2020-09 Yes [id number] Apply to NPI:183 e-betametha 09 area(s) 2 131 8781 sone cream 00:00: (two) 00 times daily. cyclobenzap 2020-09 Yes [id number] TAKE 1 NPI:183 rine 5 mg 10-04 TABLET BY [id number] 81 tablet 00:00: MOUTH 00 EVERY 8 HOURS NEEDED econazole 2020-09 Yes [id number] Apply to NPI:183 nitrate 1 % 10-04 area(s) 2 131 8781 cream 00:00: (two) 00 times daily. albuterol 2020-09 Yes [id number] 2{puff} Inhale 2 NPI:183 (PROAIR - Puffs [id number] HFA) 90 00:00: every 6 mcg/actuati 00 (six) on inhaler hours as needed for Wheezing or Shortness of Breath. triamcinolo 2020-09 Yes [id number] Apply to NPI:183 ne 0.025 % 10-04 area(s) 3 1318 781 ointment 00:00: (three) 00 times daily. For itching diltiazem 2020-09 Yes [id number] 120mg Take 1 N PI:183 (CARTIA XT) 10-04 capsule by 13 [id number] 120 mg 24 00:00: mouth 2 hr capsule 00 (two) times daily. lancets 2020-09 Yes [id number] Use twice N PI:183 (ONE TOUCH -09 a day for 1318 781 DELICA) 33 00:00: ICD code gauge Misc 00 E11.65 diclofenac 2020-09 Yes [id number] 75mg Take 1 NPI:183 75 mg EC 10-04 tablet by [id number] 1 tablet 00:00: mouth 2 00 (two) times daily with meals as needed for Pain. USE SPARINGLY DUE TO POSSIBLE SIDE EFFECTS. rosuvastati 2020-09 Yes [id number] 10mg Take 1 NPI:183 n 10 mg 1-09 tablet by [id number] tablet 00:00: mouth at 00 bedtime. cyanocobala 2020-09 Yes [id number] 1000ug 1 mL by NPI:183 min 1,000 -09 Intramuscu 1318 781 mcg/mL 00:00: lar route injection 00 every 2 (two) weeks. Insulin 2020-09 Yes [id number] Use as NPI: 183 [place], - directed [id number] Disposable, 00:00: to inject (PEN 00 Ozempic NEEDLE) 32 once gauge x weekly " Ndle levothyroxi 2020-09 Yes [id number] 50ug Take 1 NPI:183 ne 50 mcg -09 [place] 79313 81 tablet 00:00: mouth 00 every morning. fluticasone 2020-09 Yes [id number] 2{puff} Inhale 2 NPI:183 propionate 1-09 Puffs [id number] (FLOVENT 00:00: every 12 HFA) 110 00 (twelve) mcg/actuati hours. on inhaler Rinse mouth after each use. levalbutero 2020-09 Yes [id number] .63mg Inhale NPI:183 l 0.63 mg/3 -09 0.63 mg 3 131 8781 mL 00:00: (three) nebulizer 00 times solution daily as needed for Wheezing or Shortness of Breath. losartan 50 2020-09 Yes [id number] 50mg Take 1 NPI:183 mg tablet -09 tablet [place] 43263 81 00:00: mouth 2 00 (two) times daily. clotrimazol 2020-09 Yes [id number] Apply to NPI:183 e-betametha -09 area(s) 2 131 8781 sone cream 00:00: (two) 00 times daily. cyclobenzap 2020-09 Yes [id number] TAKE 1 NPI:183 rine 5 mg 1-09 [place] [id number] 81 tablet 00:00: MOUTH 00 EVERY 8 HOURS NEEDED econazole 2020-09 Yes [id number] Apply to NPI:183 nitrate 1 % 09 area(s) 2 131 8781 cream 00:00: (two) 00 times daily. albuterol 2020-09 Yes [id number] 2{puff} Inhale 2 NPI:183 (PROAIR 1-09 Puffs [id number] HFA) 90 00:00: every 6 mcg/actuati 00 (six) on inhaler hours as needed for Wheezing or Shortness of Breath. triamcinolo 2020-09 Yes [id number] Apply to NPI:183 ne 0.025 % 10-04 area(s) 3 1318 781 ointment 00:00: (three) 00 times daily. For itching diltiazem 2020-09 Yes [id number] 120mg Take 1 N PI:183 (CARTIA XT) 10-04 capsule by 13 53045 120 mg 24 00:00: mouth 2 hr capsule 00 (two) times daily. lancets 2020-09 Yes [id number] Use twice N PI:183 (ONE TOUCH 10-04 a day for 1318 781 DELICA) 33 00:00: ICD code gauge Misc 00 E11.65 diclofenac 2020-09 Yes [id number] 75mg Take 1 NPI:183 75 mg EC 10-04 tablet by [id number] 1 tablet 00:00: mouth 2 00 (two) times daily with meals as needed for Pain. USE SPARINGLY DUE TO POSSIBLE SIDE EFFECTS. rosuvastati 2020-09 Yes [id number] 10mg Take 1 NPI:183 n 10 mg 10-04 tablet by [id number] tablet 00:00: mouth at 00 bedtime. cyanocobala 2020-09 Yes [id number] 1000ug 1 mL by NPI:183 min 1,000 09 Intramuscu 1318 781 mcg/mL 00:00: lar route injection 00 every 2 (two) weeks. Insulin 2020-09 Yes [id number] Use as NPI: 183 [place], 10-04 directed [id number] Disposable, 00:00: to inject (PEN 00 Ozempic NEEDLE) 32 once gauge x weekly " Ndle levothyroxi 2020-09 Yes [id number] 50ug Take 1 NPI:183 ne 50 mcg 10-[place] [id number] 81 tablet 00:00: mouth 00 every morning. fluticasone 2020-09 Yes [id number] 2{puff} Inhale 2 NPI:183 propionate -09 Puffs [id number] (FLOVENT 00:00: every 12 HFA) 110 00 (twelve) mcg/actuati hours. on inhaler Rinse mouth after each use. levalbutero 2020-09 Yes [id number] .63mg Inhale NPI:183 l 0.63 mg/3 1-09 0.63 mg 3 131 8781 mL 00:00: (three) nebulizer 00 times solution daily as needed for Wheezing or Shortness of Breath. losartan 50 2020-09 Yes [id number] 50mg Take 1 NPI:183 mg tablet -[place] [id number] 81 00:00: mouth 2 00 (two) times daily. clotrimazol 2020-09 Yes [id number] Apply to NPI:183 e-betametha 09 area(s) 2 131 8781 sone cream 00:00: (two) 00 times daily. cyclobenzap 2020-09 Yes [id number] TAKE 1 NPI:183 rine 5 mg 10-04 [place] [id number] 81 tablet 00:00: MOUTH 00 EVERY 8 HOURS NEEDED econazole 2020-09 Yes [id number] Apply to NPI:183 nitrate 1 % 10-04 area(s) 2 131 8781 cream 00:00: (two) 00 times daily. albuterol 2020-09 Yes [id number] 2{puff} Inhale 2 NPI:183 (PROAIR -09 Puffs [id number] HFA) 90 00:00: every 6 mcg/actuati 00 (six) on inhaler hours as needed for Wheezing or Shortness of Breath. triamcinolo 2020-09 Yes [id number] Apply to NPI:183 ne 0.025 % 10-04 area(s) 3 4242 781 ointment 00:00: (three) 00 times daily. For itching diltiazem 2020-09 Yes [id number] 120mg Take 1 N PI:183 (CARTIA XT) 09 capsule by 13 32034 120 mg 24 00:00: mouth 2 hr capsule 00 (two) times daily. lancets 2020-09 Yes [id number] Use twice N PI:183 (ONE TOUCH 1-09 a day for 1313 781 DELICA) 33 00:00: ICD code gauge Misc 00 E11.65 diclofenac 2020-09 Yes [id number] 75mg Take 1 NPI:183 75 mg EC 10-04 tablet by [id number] 1 tablet 00:00: mouth 2 00 (two) times daily with meals as needed for Pain. USE SPARINGLY DUE TO POSSIBLE SIDE EFFECTS. rosuvastati 2020-09 Yes [id number] 10mg Take 1 NPI:183 n 10 mg -09 tablet by [id number] tablet 00:00: mouth at 00 bedtime. cyanocobala 2020-09 Yes [id number] 1000ug 1 mL by NPI:183 min 1,000 -09 Intramuscu 1318 781 mcg/mL 00:00: lar route injection 00 every 2 (two) weeks. Insulin 2020-09 Yes [id number] Use as NPI: 183 [place], - directed [id number] Disposable, 00:00: to inject (PEN 00 Ozempic NEEDLE) 32 once gauge x weekly " Ndle levothyroxi 2020-09 Yes [id number] 50ug Take 1 NPI:183 ne 50 mcg -09 [place] [id number] 81 tablet 00:00: mouth 00 every morning. fluticasone 2020-09 Yes [id number] 2{puff} Inhale 2 NPI:183 propionate 1-09 Puffs [id number] (FLOVENT 00:00: every 12 HFA) 110 00 (twelve) mcg/actuati hours. on inhaler Rinse mouth after each use. levalbutero 2020-09 Yes [id number] .63mg Inhale NPI:183 l 0.63 mg/3 -09 0.63 mg 3 131 8781 mL 00:00: (three) nebulizer 00 times solution daily as needed for Wheezing or Shortness of Breath. losartan 50 2020-09 Yes [id number] 50mg Take 1 NPI:183 mg tablet -09 [place] [id number] 81 00:00: mouth 2 00 (two) times daily. clotrimazol 2020-09 Yes [id number] Apply to NPI:183 e-betametha -09 area(s) 2 131 8781 sone cream 00:00: (two) 00 times daily. cyclobenzap 2020-09 Yes [id number] TAKE 1 NPI:183 rine 5 mg -09 [place] [id number] 81 tablet 00:00: MOUTH 00 EVERY 8 HOURS NEEDED econazole 2020-09 Yes [id number] Apply to NPI:183 nitrate 1 % 10-04 area(s) 2 131 8781 cream 00:00: (two) 00 times daily. albuterol 2020-09 Yes [id number] 2{puff} Inhale 2 NPI:183 (PROAIR -09 Puffs [id number] HFA) 90 00:00: every 6 mcg/actuati 00 (six) on inhaler hours as needed for Wheezing or Shortness of Breath. triamcinolo 2020-09 Yes [id number] Apply to NPI:183 ne 0.025 % 10-04 area(s) 3 1318 781 ointment 00:00: (three) 00 times daily. For itching diltiazem 2020-09 Yes [id number] 120mg Take 1 N PI:183 (CARTIA XT) 10-04 capsule by 13 [id number] 120 mg 24 00:00: mouth 2 hr capsule 00 (two) times daily. lancets 2020-09 Yes [id number] Use twice N PI:183 (ONE TOUCH -09 a day for 1318 781 DELICA) 33 00:00: ICD code gauge Misc 00 E11.65 diclofenac 2020-09 Yes [id number] 75mg Take 1 NPI:183 75 mg EC 10-04 tablet by [id number] 1 tablet 00:00: mouth 2 00 (two) times daily with meals as needed for Pain. USE SPARINGLY DUE TO POSSIBLE SIDE EFFECTS. rosuvastati 2020-09 Yes [id number] 10mg Take 1 NPI:183 n 10 mg 10-04 tablet by [id number] tablet 00:00: mouth at 00 bedtime. cyanocobala 2020-09 Yes [id number] 1000ug 1 mL by NPI:183 min 1,000 10-04 Intramuscu 1318 781 mcg/mL 00:00: lar route injection 00 every 2 (two) weeks. Insulin 2020-09 Yes [id number] Use as NPI: 183 [place], 10-04 directed [id number] Disposable, 00:00: to inject (PEN 00 Ozempic NEEDLE) 32 once gauge x weekly " Ndle levothyroxi 2020-09 Yes [id number] 50ug Take 1 NPI:183 ne 50 mcg 10-04 tablet [place] [id number] 81 tablet 00:00: mouth 00 every morning. fluticasone 2020-09 Yes [id number] 2{puff} Inhale 2 NPI:183 propionate 1-09 Puffs [id number] (FLOVENT 00:00: every 12 HFA) 110 00 (twelve) mcg/actuati hours. on inhaler Rinse mouth after each use. levalbutero 2020-09 Yes [id number] .63mg Inhale NPI:183 l 0.63 mg/3 1-09 0.63 mg 3 131 8781 mL 00:00: (three) nebulizer 00 times solution daily as needed for Wheezing or Shortness of Breath. losartan 50 2020-09 Yes [id number] 50mg Take 1 NPI:183 mg tablet 1-09 tablet by [id number] 81 00:00: mouth 2 00 (two) times daily. clotrimazol 2020-09 Yes [id number] Apply to NPI:183 e-betametha 1-09 area(s) 2 131 8781 sone cream 00:00: (two) 00 times daily. cyclobenzap 2020-09 Yes [id number] TAKE 1 NPI:183 rine 5 mg 1-09 TABLET [place] [id number] 81 tablet 00:00: MOUTH 00 EVERY 8 HOURS NEEDED econazole 2020-09 Yes [id number] Apply to NPI:183 nitrate 1 % -09 area(s) 2 131 8781 cream 00:00: (two) 00 times daily. albuterol 2020-09 Yes [id number] 2{puff} Inhale 2 NPI:183 (PROAIR 1-09 Puffs [id number] HFA) 90 00:00: every 6 mcg/actuati 00 (six) on inhaler hours as needed for Wheezing or Shortness of Breath. triamcinolo 2020-09 Yes [id number] Apply to NPI:183 ne 0.025 % 1-09 area(s) 3 1318 781 ointment 00:00: (three) 00 times daily. For itching diltiazem 2020-09 Yes [id number] 120mg Take 1 N PI:183 (CARTIA XT) 1-09 capsule by 13 10343 120 mg 24 00:00: mouth 2 hr capsule 00 (two) times daily. lancets 2020-09 Yes [id number] Use twice N PI:183 (ONE TOUCH 1-09 a day for 1318 781 DELICA) 33 00:00: ICD code gauge Misc 00 E11.65 pregabalin 2020-09- No [id number] 150mg Take 1 NPI:183 150 mg 10-04 capsule by [id number] 1 capsule 00:00: 00:00 mouth 3 00 :00 (three) times daily. amitriptyli 2020-09- No [id number] 100mg Take 2 NPI:183 ne 50 mg 10-04 tablets by 1318 781 tablet 00:00: 00:00 mouth at 00 :00 bedtime. busPIRone 2020-09- No [id number] 20mg Take 2 N PI:183 10 mg 10-04 tablets by [id number] tablet 00:00: 00:00 mouth 2 00 :00 (two) times daily. citalopram 2020-09- No [id number] 40mg Take 1 NPI:183 40 mg 10-04 tablet by [id number] tablet 00:00: 00:00 mouth 00 :00 daily. proMETHazin 2020-1 Yes TAKE 1 NPI: 183 e 25 mg 0-22 TABLET BY [id number] tablet 00:00: MOUTH 00 EVERY 6 HOURS NEEDED FOR NAUSEA proMETHazin 2020-1 Yes TAKE 1 NPI: 183 e 25 mg 0-22 TABLET BY [id number] tablet 00:00: MOUTH 00 EVERY 6 HOURS NEEDED FOR NAUSEA proMETHazin 2020-1 Yes TAKE 1 NPI: 183 e 25 mg 0-22 TABLET BY [id number] tablet 00:00: MOUTH 00 EVERY 6 HOURS NEEDED FOR NAUSEA proMETHazin 2020-1 Yes TAKE 1 NPI: 183 e 25 mg 0-22 TABLET BY [id number] tablet 00:00: MOUTH 00 EVERY 6 HOURS NEEDED FOR NAUSEA proMETHazin 2020-1 Yes TAKE 1 NPI: 183 e 25 mg 0-22 TABLET BY [id number] tablet 00:00: MOUTH 00 EVERY 6 HOURS NEEDED FOR NAUSEA proMETHazin 2020-1 Yes TAKE 1 NPI: 183 e 25 mg 0-22 TABLET BY [id number] tablet 00:00: MOUTH 00 EVERY 6 HOURS NEEDED FOR NAUSEA proMETHazin 2020-1 Yes TAKE 1 NPI: 183 e 25 mg 0-22 TABLET BY [id number] tablet 00:00: MOUTH 00 EVERY 6 HOURS NEEDED FOR NAUSEA proMETHazin 2020-1 Yes TAKE 1 NPI: 183 e 25 mg 0-22 TABLET BY [id number] tablet 00:00: MOUTH 00 EVERY 6 HOURS NEEDED FOR NAUSEA proMETHazin 2020-1 Yes TAKE 1 NPI: 183 e 25 mg 0-22 TABLET BY [id number] tablet 00:00: MOUTH 00 EVERY 6 HOURS NEEDED FOR NAUSEA proMETHazin 2020-1 Yes TAKE 1 NPI: 183 e 25 mg 0-22 TABLET BY [id number] tablet 00:00: MOUTH 00 EVERY 6 HOURS NEEDED FOR NAUSEA proMETHazin 2020-1 Yes TAKE 1 NPI: 183 e 25 mg 0-22 TABLET BY [id number] tablet 00:00: MOUTH 00 EVERY 6 HOURS NEEDED FOR NAUSEA proMETHazin 2020-1 Yes TAKE 1 NPI: 183 e 25 mg 0-22 TABLET BY [id number] tablet 00:00: MOUTH 00 EVERY 6 HOURS NEEDED FOR NAUSEA proMETHazin 2020-1 Yes TAKE 1 NPI: 183 e 25 mg 0-22 TABLET BY [id number] tablet 00:00: MOUTH 00 EVERY 6 HOURS NEEDED FOR NAUSEA proMETHazin 2020- Yes TAKE 1 NPI: 183 e 25 mg 0-22 TABLET BY [id number] tablet 00:00: MOUTH 00 EVERY 6 HOURS NEEDED FOR NAUSEA Ginkgo 2019-0 Yes NPI:183 [place] 120 1-16 [id number] mg Tab 00:00: 00 Ginkgo 2019-0 Yes NPI:183 [place] 120 1-16 [id number] mg Tab 00:00: 00 Ginkgo 2019-0 Yes NPI:183 [place] 120 1-16 [id number] mg Tab 00:00: 00 Ginkgo 2019-0 Yes NPI:183 [place] 120 1-16 [id number] mg Tab 00:00: 00 Ginkgo 2019-0 Yes NPI:183 [place] 120 1-16 [id number] mg Tab 00:00: 00 Ginkgo 2019-0 Yes NPI:183 [place] 120 1-16 [id number] mg Tab 00:00: 00 Ginkgo 2019-0 Yes NPI:183 [place] 120 1-16 [id number] mg Tab 00:00: 00 Ginkgo 2019-0 Yes NPI:183 [place] 120 1-16 [id number] mg Tab 00:00: 00 Ginkgo 2019-0 Yes NPI:183 [place] 120 1-16 [id number] mg Tab 00:00: 00 Ginkgo 2019-0 Yes NPI:183 [place] 120 1-16 [id number] mg Tab 00:00: 00 Ginkgo 2019-0 Yes NPI:183 [place] 120 1-16 [id number] mg Tab 00:00: 00 Ginkgo 2019-0 Yes NPI:183 [place] 120 1-16 [id number] mg Tab 00:00: 00 Ginkgo 2019-0 Yes NPI:183 [place] 120 1-16 [id number] mg Tab 00:00: 00 Ginkgo 2019-0 Yes NPI:183 [place] 120 1-16 [id number] mg Tab 00:00: 00 FERROUS 2018-0 Yes [id number] TAKE ONE NPI :183 S[place] 325 8-13 TABLET BY 131 8781 mg (65 mg 00:00: MOUTH iron) 00 THREE tablet TIMES DAILY WITH MEALS FERROUS 0 Yes [id number] TAKE ONE NPI :183 SULFATE 325 8-13 TABLET BY 131 8781 mg (65 mg 00:00: MOUTH iron) 00 THREE tablet TIMES DAILY WITH MEALS FERROUS Yes [id number] TAKE ONE NPI :183 SULFATE 325 8-13 TABLET BY 131 8781 mg (65 mg 00:00: MOUTH iron) 00 THREE tablet TIMES DAILY WITH MEALS FERROUS Yes [id number] TAKE ONE NPI :183 SULFATE 325 8-13 TABLET BY 131 8781 mg (65 mg 00:00: MOUTH iron) 00 THREE tablet TIMES DAILY WITH MEALS FERROUS 0 Yes [id number] TAKE ONE NPI :183 SULFATE 325 8-13 TABLET BY 131 8781 mg (65 mg 00:00: MOUTH iron) 00 THREE tablet TIMES DAILY WITH MEALS FERROUS 0 Yes [id number] TAKE ONE NPI :183 SULFATE 325 8-13 TABLET BY 131 8781 mg (65 mg 00:00: MOUTH iron) 00 THREE tablet TIMES DAILY WITH MEALS FERROUS 0 Yes [id number] TAKE ONE NPI :183 SULFATE 325 8-13 TABLET BY 131 8781 mg (65 mg 00:00: MOUTH iron) 00 THREE tablet TIMES DAILY WITH MEALS FERROUS 0 Yes [id number] TAKE ONE NPI :183 SULFATE 325 8-13 TABLET BY 131 8781 mg (65 mg 00:00: MOUTH iron) 00 THREE tablet TIMES DAILY WITH MEALS FERROUS 0 Yes [id number] TAKE ONE NPI :183 SULFATE 325 8-13 TABLET BY 131 8781 mg (65 mg 00:00: MOUTH iron) 00 THREE tablet TIMES DAILY WITH MEALS FERROUS Yes [id number] TAKE ONE NPI :183 SULFATE 325 8-13 TABLET BY 131 8781 mg (65 mg 00:00: MOUTH iron) 00 THREE tablet TIMES DAILY WITH MEALS FERROUS Yes [id number] TAKE ONE NPI :183 SULFATE 325 8-13 TABLET BY 131 8781 mg (65 mg 00:00: MOUTH iron) 00 THREE tablet TIMES DAILY WITH MEALS FERROUS Yes [id number] TAKE ONE NPI :183 SULFATE 325 8-13 TABLET BY 131 8781 mg (65 mg 00:00: MOUTH iron) 00 THREE tablet TIMES DAILY WITH MEALS FERROUS Yes [id number] TAKE ONE NPI :183 SULFATE 325 8-13 TABLET BY 131 8781 mg (65 mg 00:00: MOUTH iron) 00 THREE tablet TIMES DAILY WITH MEALS FERROUS Yes [id number] TAKE ONE NPI :183 SULFATE 325 8-13 TABLET BY 131 8781 mg (65 mg 00:00: MOUTH iron) 00 THREE tablet TIMES DAILY WITH MEALS coQ10, Yes [id number] 1{capsu Take 1 N PI:183 ubiquinol, 1-16 le} capsule by 131 8781 100 mg Cap 00:00: mouth 00 daily. coQ10, Yes [id number] 1{capsu Take 1 N PI:183 ubiquinol, 1-16 le} capsule by 131 8781 100 mg Cap 00:00: mouth 00 daily. coQ10, Yes [id number] 1{capsu Take 1 N PI:183 ubiquinol, 1-16 le} capsule by 131 8781 100 mg Cap 00:00: mouth 00 daily. coQ10, Yes [id number] 1{capsu Take 1 N PI:183 ubiquinol, 1-16 le} capsule by 131 8781 100 mg Cap 00:00: mouth 00 daily. coQ10, Yes [id number] 1{capsu Take 1 N PI:183 ubiquinol, 1-16 le} capsule by 131 8781 100 mg Cap 00:00: mouth 00 daily. coQ10, Yes [id number] 1{capsu Take 1 N PI:183 ubiquinol, 1-16 le} capsule by 131 8781 100 mg Cap 00:00: mouth 00 daily. coQ10, Yes [id number] 1{capsu Take 1 N PI:183 ubiquinol, 1-16 le} capsule by 131 8781 100 mg Cap 00:00: mouth 00 daily. coQ10, Yes [id number] 1{capsu Take 1 N PI:183 ubiquinol, 1-16 le} capsule by 131 8781 100 mg Cap 00:00: mouth 00 daily. coQ10, Yes [id number] 1{capsu Take 1 N PI:183 ubiquinol, 1-16 le} capsule by 131 8781 100 mg Cap 00:00: mouth 00 daily. coQ10, Yes [id number] 1{capsu Take 1 N PI:183 ubiquinol, 1-16 le} capsule by 131 8781 100 mg Cap 00:00: mouth 00 daily. coQ10, Yes [id number] 1{capsu Take 1 N PI:183 ubiquinol, 1-16 le} capsule by 131 8781 100 mg Cap 00:00: mouth 00 daily. coQ10, Yes [id number] 1{capsu Take 1 N PI:183 ubiquinol, 1-16 le} capsule by 131 8781 100 mg Cap 00:00: mouth 00 daily. coQ10, Yes [id number] 1{capsu Take 1 N PI:183 ubiquinol, 1-16 le} capsule by 131 8781 100 mg Cap 00:00: mouth 00 daily. coQ10, Yes [id number] 1{capsu Take 1 N PI:183 ubiquinol, 1-16 le} capsule by 131 8781 100 mg Cap 00:00: mouth 00 daily. loratadine Yes [id number] 10mg Take 1 NPI:183 10 mg 1-23 tablet by [id number] tablet 00:00: mouth 00 daily. loratadine Yes [id number] 10mg Take 1 NPI:183 10 mg 1-23 tablet by [id number] tablet 00:00: mouth 00 daily. loratadine Yes [id number] 10mg Take 1 NPI:183 10 mg 1-23 tablet by [id number] tablet 00:00: mouth 00 daily. loratadine Yes [id number] 10mg Take 1 NPI:183 10 mg 1-23 tablet by [id number] tablet 00:00: mouth 00 daily. loratadine 2017-0 Yes [id number] 10mg Take 1 NPI:183 10 mg 1-23 tablet by [id number] tablet 00:00: mouth 00 daily. loratadine 2016-0 Yes [id number] 10mg Take 1 NPI:183 10 mg 1-23 tablet by [id number] tablet 00:00: mouth 00 daily. loratadine 2016-0 Yes [id number] 10mg Take 1 NPI:183 10 mg 1-23 tablet by [id number] tablet 00:00: mouth 00 daily. loratadine 2016- Yes [id number] 10mg Take 1 NPI:183 10 mg 1-23 tablet by [id number] tablet 00:00: mouth 00 daily. loratadine 2016- Yes [id number] 10mg Take 1 NPI:183 10 mg 1-23 tablet by [id number] tablet 00:00: mouth 00 daily. loratadine 2016- Yes [id number] 10mg Take 1 NPI:183 10 mg 1-23 tablet by [id number] tablet 00:00: mouth 00 daily. loratadine Yes [id number] 10mg Take 1 NPI:183 10 mg 1-23 tablet by [id number] tablet 00:00: mouth 00 daily. loratadine Yes [id number] 10mg Take 1 NPI:183 10 mg 1-23 tablet by [id number] tablet 00:00: mouth 00 daily. loratadine Yes [id number] 10mg Take 1 NPI:183 10 mg 1-23 tablet by [id number] tablet 00:00: mouth 00 daily. loratadine Yes [id number] 10mg Take 1 NPI:183 10 mg 1-23 tablet by [id number] tablet 00:00: mouth 00 daily. Immunizations Ordered Immunization Filled Immunization Date Status Commen ts Source Name Name [facility] (hep a/hep b) 2022-01-14 Completed NPI :[id number] 00:00:00 1 [facility] (hep a/hep b) 2022-01-14 Completed NPI :[id number] 00:00:00 1 [facility] (hep a/hep b) 2022-01-14 Completed NPI :[id number] 00:00:00 1 [facility] (hep a/hep b) 2022-01-14 Completed NPI :[id number] 00:00:00 1 [facility] (hep a/hep b) 2022-01-14 Completed NPI :[id number] 00:00:00 1 [facility] (hep a/hep b) 2022-01-14 Completed NPI :[id number] 00:00:00 1 [facility] (hep a/hep b) 2022-01-14 Completed NPI :[id number] 00:00:00 1 [facility] (hep a/hep b) 2022-01-14 Completed NPI :[id number] 00:00:00 1 [facility] (hep a/hep b) 2022-01-14 Completed NPI :[id number] 00:00:00 1 SARS-COV-2 COVID-19 2021-07-23 Completed NPI:1 [id number] PFIZER VACCINE 00:00:00 1 SARS-COV-2 COVID-19 2021-07-23 Completed NPI:1 [id number] PFIZER VACCINE 00:00:00 1 SARS-COV-2 COVID-19 2021-07-23 Completed NPI:1 [id number] PFIZER VACCINE 00:00:00 1 SARS-COV-2 COVID-19 2021-07-23 Completed NPI:1 [id number] PFIZER VACCINE 00:00:00 1 SARS-COV-2 COVID-19 2021-07-23 Completed NPI:1 [id number] PFIZER VACCINE 00:00:00 1 SARS-COV-2 COVID-19 2021-07-23 Completed NPI:1 [id number] PFIZER VACCINE 00:00:00 1 SARS-COV-2 COVID-19 2021-07-23 Completed NPI:1 [id number] PFIZER VACCINE 00:00:00 1 SARS-COV-2 COVID-19 2021-07-23 Completed NPI:1 [id number] PFIZER VACCINE 00:00:00 1 SARS-COV-2 COVID-19 2021-07-23 Completed NPI:1 [id number] PFIZER VACCINE 00:00:00 1 SARS-COV-2 COVID-19 2021-07-23 Completed NPI:1 [id number] PFIZER VACCINE 00:00:00 1 SARS-COV-2 COVID-19 2021-07-23 Completed NPI:1 [id number] PFIZER VACCINE 00:00:00 1 SARS-COV-2 COVID-19 2021-07-23 Completed NPI:1 [id number] PFIZER VACCINE 00:00:00 1 SARS-COV-2 COVID-19 2021-07-23 Completed NPI:1 [id number] PFIZER VACCINE 00:00:00 1 SARS-COV-2 COVID-19 2021-07-23 Completed NPI:1 [id number] PFIZER VACCINE 00:00:00 1 Influenza Virus 2021-05-27 Completed NPI:[id number] Vaccine (3+ yrs) 00:00:00 1 Influenza Virus 2021-05-27 Completed NPI:[id number] Vaccine (3+ yrs) 00:00:00 1 Influenza Virus 2021-05-27 Completed NPI:[id number] Vaccine (3+ yrs) 00:00:00 1 Influenza Virus 2021-05-27 Completed NPI:[id number] Vaccine (3+ yrs) 00:00:00 1 Influenza Virus 2021-05-27 Completed NPI:[id number] Vaccine (3+ yrs) 00:00:00 1 Influenza Virus 2021-05-27 Completed NPI:[id number] Vaccine (3+ yrs) 00:00:00 1 Influenza Virus 2021-05-27 Completed NPI:[id number] Vaccine (3+ yrs) 00:00:00 1 Influenza Virus 2021-05-27 Completed NPI:[id number] Vaccine (3+ yrs) 00:00:00 1 Influenza Virus 2021-05-27 Completed NPI:[id number] Vaccine (3+ yrs) 00:00:00 1 Influenza Virus 2021-05-27 Completed NPI:[id number] Vaccine (3+ yrs) 00:00:00 1 Influenza Virus 2021-05-27 Completed NPI:[id number] Vaccine (3+ yrs) 00:00:00 1 Influenza Virus 2021-05-27 Completed NPI:[id number] Vaccine (3+ yrs) 00:00:00 1 Influenza Virus 2021-05-27 Completed NPI:[id number] Vaccine (3+ yrs) 00:00:00 1 Influenza Virus 2021-05-27 Completed NPI:[id number] Vaccine (3+ yrs) 00:00:00 1 SARS-COV-2 COVID-19 2020-12-13 Completed NPI:1 [id number] PFIZER VACCINE 00:00:00 1 SARS-COV-2 COVID-19 2020-12-13 Completed NPI:1 [id number] PFIZER VACCINE 00:00:00 1 SARS-COV-2 COVID-19 2020-12-13 Completed NPI:1 [id number] PFIZER VACCINE 00:00:00 1 SARS-COV-2 COVID-19 2020-12-13 Completed NPI:1 [id number] PFIZER VACCINE 00:00:00 1 SARS-COV-2 COVID-19 2020-12-13 Completed NPI:1 [id number] PFIZER VACCINE 00:00:00 1 SARS-COV-2 COVID-19 2020-12-13 Completed NPI:1 [id number] PFIZER VACCINE 00:00:00 1 SARS-COV-2 COVID-19 2020-12-13 Completed NPI:1 [id number] PFIZER VACCINE 00:00:00 1 SARS-COV-2 COVID-19 2020-12-13 Completed NPI:1 [id number] PFIZER VACCINE 00:00:00 1 SARS-COV-2 COVID-19 2020-12-13 Completed NPI:1 [id number] PFIZER VACCINE 00:00:00 1 SARS-COV-2 COVID-19 2020-12-13 Completed NPI:1 [id number] PFIZER VACCINE 00:00:00 1 SARS-COV-2 COVID-19 2020-12-13 Completed NPI:1 [id number] PFIZER VACCINE 00:00:00 1 SARS-COV-2 COVID-19 2020-12-13 Completed NPI:1 [id number] PFIZER VACCINE 00:00:00 1 SARS-COV-2 COVID-19 2020-12-13 Completed NPI:1 [id number] PFIZER VACCINE 00:00:00 1 SARS-COV-2 COVID-19 2020-12-13 Completed NPI:1 [id number] PFIZER VACCINE 00:00:00 1 SARS-COV-2 COVID-19 2020-11-22 Completed NPI:1 [id number] PFIZER VACCINE 00:00:00 1 SARS-COV-2 COVID-19 2020-11-22 Completed NPI:1 [id number] PFIZER VACCINE 00:00:00 1 SARS-COV-2 COVID-19 2020-11-22 Completed NPI:1 [id number] PFIZER VACCINE 00:00:00 1 SARS-COV-2 COVID-19 2020-11-22 Completed NPI:1 [id number] PFIZER VACCINE 00:00:00 1 SARS-COV-2 COVID-19 2020-11-22 Completed NPI:1 [id number] PFIZER VACCINE 00:00:00 1 SARS-COV-2 COVID-19 2020-11-22 Completed NPI:1 [id number] PFIZER VACCINE 00:00:00 1 SARS-COV-2 COVID-19 2020-11-22 Completed NPI:1 [id number] PFIZER VACCINE 00:00:00 1 SARS-COV-2 COVID-19 2020-11-22 Completed NPI:1 [id number] PFIZER VACCINE 00:00:00 1 SARS-COV-2 COVID-19 2020-11-22 Completed NPI:1 [id number] PFIZER VACCINE 00:00:00 1 SARS-COV-2 COVID-19 2020-11-22 Completed NPI:1 [id number] PFIZER VACCINE 00:00:00 1 SARS-COV-2 COVID-19 2020-11-22 Completed NPI:1 [id number] PFIZER VACCINE 00:00:00 1 SARS-COV-2 COVID-19 2020-11-22 Completed NPI:1 [id number] PFIZER VACCINE 00:00:00 1 SARS-COV-2 COVID-19 2020-11-22 Completed NPI:1 [id number] PFIZER VACCINE 00:00:00 1 SARS-COV-2 COVID-19 2020-11-22 Completed NPI:1 [id number] PFIZER VACCINE 00:00:00 1 Influenza Virus 2020-05-27 Completed NPI:[id number] Vaccine Recomb Quad 00:00:00 1 IM, Preserv and ABX Free 18-64 YRS Influenza Virus 2020-05-27 Completed NPI:[id number] Vaccine Recomb Quad 00:00:00 1 IM, Preserv and ABX Free 18-64 YRS Influenza Virus 2020-05-27 Completed NPI:[id number] Vaccine Recomb Quad 00:00:00 1 IM, Preserv and ABX Free 18-64 YRS Influenza Virus 2020-05-27 Completed NPI:[id number] Vaccine Recomb Quad 00:00:00 1 IM, Preserv and ABX Free 18-64 YRS Influenza Virus 2020-05-27 Completed NPI:[id number] Vaccine Recomb Quad 00:00:00 1 IM, Preserv and ABX Free 18-64 YRS Influenza Virus 2020-05-27 Completed NPI:[id number] Vaccine Recomb Quad 00:00:00 1 IM, Preserv and ABX Free 18-64 YRS Influenza Virus 2020-05-27 Completed NPI:[id number] Vaccine Recomb Quad 00:00:00 1 IM, Preserv and ABX Free 18-64 YRS Influenza Virus 2020-05-27 Completed NPI:[id number] 1878 Vaccine Recomb Quad 00:00:00 1 IM, Preserv and ABX Free 18-64 YRS Influenza Virus 2020-05-27 Completed NPI:[id number] Vaccine Recomb Quad 00:00:00 1 IM, Preserv and ABX Free 18-64 YRS Influenza Virus 2020-05-27 Completed NPI:[id number] Vaccine Recomb Quad 00:00:00 1 IM, Preserv and ABX Free 18-64 YRS Influenza Virus 2020-05-27 Completed NPI:[id number] Vaccine Recomb Quad 00:00:00 1 IM, Preserv and ABX Free 18-64 YRS Influenza Virus 2020-05-27 Completed NPI:[id number] Vaccine Recomb Quad 00:00:00 1 IM, Preserv and ABX Free 18-64 YRS Influenza Virus 2020-05-27 Completed NPI:[id number] Vaccine Recomb Quad 00:00:00 1 IM, Preserv and ABX Free 18-64 YRS Influenza Virus 2020-05-27 Completed NPI:[id number] Vaccine Recomb Quad 00:00:00 1 IM, Preserv and ABX Free 18-64 YRS Pneumococcal 2019-08-10 Completed NPI:[id number] Polysaccharide, PPSV23 00:00:00 1 (PNEUMOVAX) TDAP (ADACEL) VACCINE 2019-08-10 Completed NPI :[id number] 00:00:00 1 TDAP 2019-08-10 Completed NPI:[id number] 00:00:00 1 Pneumococcal 2019-08-10 Completed NPI:[id number] Polysaccharide, PPSV23 00:00:00 1 (PNEUMOVAX) TDAP (ADACEL) VACCINE 2019-08-10 Completed NPI :[id number] 00:00:00 1 TDAP 2019-08-10 Completed NPI:[id number] 00:00:00 1 Pneumococcal 2019-08-10 Completed NPI:[id number] Polysaccharide, PPSV23 00:00:00 1 (PNEUMOVAX) TDAP (ADACEL) VACCINE 2019-08-10 Completed NPI :[id number] 00:00:00 1 TDAP 2019-08-10 Completed NPI:[id number] 00:00:00 1 Pneumococcal 2019-08-10 Completed NPI:[id number] Polysaccharide, PPSV23 00:00:00 1 (PNEUMOVAX) TDAP (ADACEL) VACCINE 2019-08-10 Completed NPI :[id number] 00:00:00 1 TDAP 2019-08-10 Completed NPI:[id number] 00:00:00 1 Pneumococcal 2019-08-10 Completed NPI:[id number] Polysaccharide, PPSV23 00:00:00 1 (PNEUMOVAX) TDAP (ADACEL) VACCINE 2019-08-10 Completed NPI :[id number] 00:00:00 1 TDAP 2019-08-10 Completed NPI:[id number] 00:00:00 1 Pneumococcal 2019-08-10 Completed NPI:[id number] Polysaccharide, PPSV23 00:00:00 1 (PNEUMOVAX) TDAP (ADACEL) VACCINE 2019-08-10 Completed NPI :[id number] 00:00:00 1 TDAP 2019-08-10 Completed NPI:[id number] 00:00:00 1 Pneumococcal 2019-08-10 Completed NPI:[id number] Polysaccharide, PPSV23 00:00:00 1 (PNEUMOVAX) TDAP (ADACEL) VACCINE 2019-08-10 Completed NPI :[id number] 00:00:00 1 TDAP 2019-08-10 Completed NPI:[id number] 00:00:00 1 Pneumococcal 2019-08-10 Completed NPI:[id number] Polysaccharide, PPSV23 00:00:00 1 (PNEUMOVAX) TDAP (ADACEL) VACCINE 2019-08-10 Completed NPI :[id number] 00:00:00 1 TDAP 2019-08-10 Completed NPI:[id number] 00:00:00 1 Pneumococcal 2019-08-10 Completed NPI:[id number] Polysaccharide, PPSV23 00:00:00 1 (PNEUMOVAX) TDAP (ADACEL) VACCINE 2019-08-10 Completed NPI :[id number] 00:00:00 1 TDAP 2019-08-10 Completed NPI:[id number] 00:00:00 1 Pneumococcal 2019-08-10 Completed NPI:[id number] Polysaccharide, PPSV23 00:00:00 1 (PNEUMOVAX) TDAP (ADACEL) VACCINE 2019-08-10 Completed NPI :[id number] 00:00:00 1 TDAP 2019-08-10 Completed NPI:[id number] 00:00:00 1 Pneumococcal 2019-08-10 Completed NPI:[id number] Polysaccharide, PPSV23 00:00:00 1 (PNEUMOVAX) TDAP (ADACEL) VACCINE 2019-08-10 Completed NPI :[id number] 00:00:00 1 TDAP 2019-08-10 Completed NPI:[id number] 00:00:00 1 Pneumococcal 2019-08-10 Completed NPI:[id number] Polysaccharide, PPSV23 00:00:00 1 (PNEUMOVAX) TDAP (ADACEL) VACCINE 2019-08-10 Completed NPI :[id number] 00:00:00 1 TDAP 2019-08-10 Completed NPI:[id number] 00:00:00 1 Pneumococcal 2019-08-10 Completed NPI:[id number] Polysaccharide, PPSV23 00:00:00 1 (PNEUMOVAX) TDAP (ADACEL) VACCINE 2019-08-10 Completed NPI :[id number] 00:00:00 1 TDAP 2019-08-10 Completed NPI:[id number] 00:00:00 1 Pneumococcal 2019-08-10 Completed NPI:[id number] Polysaccharide, PPSV23 00:00:00 1 (PNEUMOVAX) TDAP (ADACEL) VACCINE 2019-08-10 Completed NPI :[id number] 00:00:00 1 TDAP 2019-08-10 Completed NPI:[id number] 00:00:00 1 Influenza Virus 2019-07-04 Completed NPI:[id number] Vaccine 00:00:00 1 Influenza Virus 2019-07-04 Completed NPI:[id number] Vaccine Recomb Quad 00:00:00 1 IM, Preserv and ABX Free 18-64 YRS Influenza Virus 2019-07-04 Completed NPI:[id number] Vaccine 00:00:00 1 Influenza Virus 2019-07-04 Completed NPI:[id number] Vaccine Recomb Quad 00:00:00 1 IM, Preserv and ABX Free 18-64 YRS Influenza Virus 2019-07-04 Completed NPI:[id number] Vaccine 00:00:00 1 Influenza Virus 2019-07-04 Completed NPI:[id number] 1878 Vaccine Recomb Quad 00:00:00 1 IM, Preserv and ABX Free 18-64 YRS Influenza Virus 2019-07-04 Completed NPI:[id number] 1878 Vaccine 00:00:00 1 Influenza Virus 2019-07-04 Completed NPI:[id number] 1878 Vaccine Recomb Quad 00:00:00 1 IM, Preserv and ABX Free 18-64 YRS Influenza Virus 2019-07-04 Completed NPI:[id number] 1878 Vaccine 00:00:00 1 Influenza Virus 2019-07-04 Completed NPI:[id number] 1878 Vaccine Recomb Quad 00:00:00 1 IM, Preserv and ABX Free 18-64 YRS Influenza Virus 2019-07-04 Completed NPI:[id number] 1878 Vaccine 00:00:00 1 Influenza Virus 2019-07-04 Completed NPI:[id number] 1878 Vaccine Recomb Quad 00:00:00 1 IM, Preserv and ABX Free 18-64 YRS Influenza Virus 2019-07-04 Completed NPI:[id number] 1878 Vaccine 00:00:00 1 Influenza Virus 2019-07-04 Completed NPI:[id number] 1878 Vaccine Recomb Quad 00:00:00 1 IM, Preserv and ABX Free 18-64 YRS Influenza Virus 2019-07-04 Completed NPI:[id number] 1878 Vaccine 00:00:00 1 Influenza Virus 2019-07-04 Completed NPI:[id number] 1878 Vaccine Recomb Quad 00:00:00 1 IM, Preserv and ABX Free 18-64 YRS Influenza Virus 2019-07-04 Completed NPI:[id number] 1878 Vaccine 00:00:00 1 Influenza Virus 2019-07-04 Completed NPI:[id number] 1878 Vaccine Recomb Quad 00:00:00 1 IM, Preserv and ABX Free 18-64 YRS Influenza Virus 2019-07-04 Completed NPI:[id number] 1878 Vaccine 00:00:00 1 Influenza Virus 2019-07-04 Completed NPI:[id number] 1878 Vaccine Recomb Quad 00:00:00 1 IM, Preserv and ABX Free 18-64 YRS Influenza Virus 2019-07-04 Completed NPI:[id number] 1878 Vaccine 00:00:00 1 Influenza Virus 2019-07-04 Completed NPI:[id number] 1878 Vaccine Recomb Quad 00:00:00 1 IM, Preserv and ABX Free 18-64 YRS Influenza Virus 2019-07-04 Completed NPI:[id number] 1878 Vaccine 00:00:00 1 Influenza Virus 2019-07-04 Completed NPI:[id number] 1878 Vaccine Recomb Quad 00:00:00 1 IM, Preserv and ABX Free 18-64 YRS Influenza Virus 2019-07-04 Completed NPI:[id number] 1878 Vaccine 00:00:00 1 Influenza Virus 2019-07-04 Completed NPI:[id number] 1878 Vaccine Recomb Quad 00:00:00 1 IM, Preserv and ABX Free 18-64 YRS Influenza Virus 2019-07-04 Completed NPI:05505 1878 Vaccine 00:00:00 1 Influenza Virus 2019-07-04 Completed NPI:[id number] 1878 Vaccine Recomb Quad 00:00:00 1 IM, Preserv and ABX Free 18-64 YRS Influenza Virus 2018-06-30 Completed NPI:[id number] 1878 Vaccine Quad IM 3+ YRS 00:00:00 1 Influenza Virus 2018-06-30 Completed NPI:[id number] 1878 Vaccine Quad IM 3+ YRS 00:00:00 1 Influenza Virus 2018-06-30 Completed NPI:[id number] 1878 Vaccine Quad IM 3+ YRS 00:00:00 1 Influenza Virus 2018-06-30 Completed NPI:[id number] 1878 Vaccine Quad IM 3+ YRS 00:00:00 1 Influenza Virus 2018-06-30 Completed NPI:[id number] 1878 Vaccine Quad IM 3+ YRS 00:00:00 1 Influenza Virus 2018-06-30 Completed NPI:[id number] 1878 Vaccine Quad IM 3+ YRS 00:00:00 1 Influenza Virus 2018-06-30 Completed NPI:[id number] 1878 Vaccine Quad IM 3+ YRS 00:00:00 1 Influenza Virus 2018-06-30 Completed NPI:[id number] 1878 Vaccine Quad IM 3+ YRS 00:00:00 1 Influenza Virus 2018-06-30 Completed NPI:52706 1878 Vaccine Quad IM 3+ YRS 00:00:00 1 Influenza Virus 2018-06-30 Completed NPI:[id number] 1878 Vaccine Quad IM 3+ YRS 00:00:00 1 Influenza Virus 2018-06-30 Completed NPI:[id number] 1878 Vaccine Quad IM 3+ YRS 00:00:00 1 Influenza Virus 2018-06-30 Completed NPI:[id number] 1878 Vaccine Quad IM 3+ YRS 00:00:00 1 Influenza Virus 2018-06-30 Completed NPI:[id number] 1878 Vaccine Quad IM 3+ YRS 00:00:00 1 Influenza Virus 2018-06-30 Completed NPI:[id number] 1878 Vaccine Quad IM 3+ YRS 00:00:00 1 Influenza Virus 2017-06-15 Completed NPI:[id number] 1878 Vaccine Quad ID 18-64 00:00:00 1 YRS Influenza Virus 2017-06-15 Completed NPI:[id number] 1878 Vaccine Quad ID 18-64 00:00:00 1 YRS Influenza Virus 2017-06-15 Completed NPI:[id number] 1878 Vaccine Quad ID 18-64 00:00:00 1 YRS Influenza Virus 2017-06-15 Completed NPI:[id number] 1878 Vaccine Quad ID 18-64 00:00:00 1 YRS Influenza Virus 2017-06-15 Completed NPI:[id number] 1878 Vaccine Quad ID 18-64 00:00:00 1 YRS Influenza Virus 2017-06-15 Completed NPI:[id number] 1878 Vaccine Quad ID 18-64 00:00:00 1 YRS Influenza Virus 2017-06-15 Completed NPI:[id number] 1878 Vaccine Quad ID 18-64 00:00:00 1 YRS Influenza Virus 2017-06-15 Completed NPI:[id number] 1878 Vaccine Quad ID 18-64 00:00:00 1 YRS Influenza Virus 2017-06-15 Completed NPI:[id number] 1878 Vaccine Quad ID 18-64 00:00:00 1 YRS Influenza Virus 2017-06-15 Completed NPI:[id number] 1878 Vaccine Quad ID 18-64 00:00:00 1 YRS Influenza Virus 2017-06-15 Completed NPI:[id number] 1878 Vaccine Quad ID 18-64 00:00:00 1 YRS Influenza Virus 2017-06-15 Completed NPI:[id number] 1878 Vaccine Quad ID 18-64 00:00:00 1 YRS Influenza Virus 2017-06-15 Completed NPI:[id number] 1878 Vaccine Quad ID 18-64 00:00:00 1 YRS Influenza Virus 2017-06-15 Completed NPI:[id number] 1878 Vaccine Quad ID 18-64 00:00:00 1 YRS Influenza Virus 2016-08-05 Completed NPI:[id number] 1878 Vaccine Quad IM 00:00:00 1 Multi-dose 6+ MO Influenza Virus 2016-08-05 Completed NPI:71754 1878 Vaccine Quad IM 00:00:00 1 Multi-dose 6+ MO Influenza Virus 2016-08-05 Completed NPI:74992 1878 Vaccine Quad IM 00:00:00 1 Multi-dose 6+ MO Influenza Virus 2016-08-05 Completed NPI:41721 1878 Vaccine Quad IM 00:00:00 1 Multi-dose 6+ MO Influenza Virus 2016-08-05 Completed NPI:44876 1878 Vaccine Quad IM 00:00:00 1 Multi-dose 6+ MO Influenza Virus 2016-08-05 Completed NPI:[id number] 1878 Vaccine Quad IM 00:00:00 1 Multi-dose 6+ MO Influenza Virus 2016-08-05 Completed NPI:17957 1878 Vaccine Quad IM 00:00:00 1 Multi-dose 6+ MO Influenza Virus 2016-08-05 Completed NPI:52080 1878 Vaccine Quad IM 00:00:00 1 Multi-dose 6+ MO Influenza Virus 2016-08-05 Completed NPI:69551 1878 Vaccine Quad IM 00:00:00 1 Multi-dose 6+ MO Influenza Virus 2016-08-05 Completed NPI:02316 1878 Vaccine Quad IM 00:00:00 1 Multi-dose 6+ MO Influenza Virus 2016-08-05 Completed NPI:40392 1878 Vaccine Quad IM 00:00:00 1 Multi-dose 6+ MO Influenza Virus 2016-08-05 Completed NPI:29505 1878 Vaccine Quad IM 00:00:00 1 Multi-dose 6+ MO Influenza Virus 2016-08-05 Completed NPI:64896 1878 Vaccine Quad IM 00:00:00 1 Multi-dose 6+ MO Influenza Virus 2016-08-05 Completed NPI:[id number] 1878 Vaccine Quad IM 00:00:00 1 Multi-dose 6+ MO Pneumococcal 13 2016-03-07 Completed NPI:[id number] 1878 Conjugate, PCV13 00:00:00 1 (Prevnar 13) Meningococcal B, OMV 2016-03-07 Completed NPI: [id number] 00:00:00 1 Pneumococcal 13 2016-03-07 Completed NPI:[id number] 1878 Conjugate, PCV13 00:00:00 1 (Prevnar 13) Meningococcal B, OMV 2016-03-07 Completed NPI: [id number] 00:00:00 1 Pneumococcal 13 2016-03-07 Completed NPI:[id number] 1878 Conjugate, PCV13 00:00:00 1 (Prevnar 13) Meningococcal B, OMV 2016-03-07 Completed NPI: [id number] 00:00:00 1 Pneumococcal 13 2016-03-07 Completed NPI:[id number] 1878 Conjugate, PCV13 00:00:00 1 (Prevnar 13) Meningococcal B, OMV 2016-03-07 Completed NPI: [id number] 00:00:00 1 Pneumococcal 13 2016-03-07 Completed NPI:[id number] 1878 Conjugate, PCV13 00:00:00 1 (Prevnar 13) Meningococcal B, OMV 2016-03-07 Completed NPI: [id number] 00:00:00 1 Pneumococcal 13 2016-03-07 Completed NPI:[id number] 1878 Conjugate, PCV13 00:00:00 1 (Prevnar 13) Meningococcal B, OMV 2016-03-07 Completed NPI: [id number] 00:00:00 1 Pneumococcal 13 2016-03-07 Completed NPI:[id number] 1878 Conjugate, PCV13 00:00:00 1 (Prevnar 13) Meningococcal B, OMV 2016-03-07 Completed NPI: [id number] 00:00:00 1 Pneumococcal 13 2016-03-07 Completed NPI:[id number] 1878 Conjugate, PCV13 00:00:00 1 (Prevnar 13) Meningococcal B, OMV 2016-03-07 Completed NPI: [id number] 00:00:00 1 Pneumococcal 13 2016-03-07 Completed NPI:[id number] 1878 Conjugate, PCV13 00:00:00 1 (Prevnar 13) Meningococcal B, OMV 2016-03-07 Completed NPI: [id number] 00:00:00 1 Pneumococcal 13 2016-03-07 Completed NPI:[id number] 1878 Conjugate, PCV13 00:00:00 1 (Prevnar 13) Meningococcal B, OMV 2016-03-07 Completed NPI: [id number] 00:00:00 1 Pneumococcal 13 2016-03-07 Completed NPI:[id number] 1878 Conjugate, PCV13 00:00:00 1 (Prevnar 13) Meningococcal B, OMV 2016-03-07 Completed NPI: [id number] 00:00:00 1 Pneumococcal 13 2016-03-07 Completed NPI:[id number] 1878 Conjugate, PCV13 00:00:00 1 (Prevnar 13) Meningococcal B, OMV 2016-03-07 Completed NPI: [id number] 00:00:00 1 Pneumococcal 13 2016-03-07 Completed NPI:[id number] 1878 Conjugate, PCV13 00:00:00 1 (Prevnar 13) Meningococcal B, OMV 2016-03-07 Completed NPI: [id number] 00:00:00 1 Pneumococcal 13 2016-03-07 Completed NPI:[id number] 1878 Conjugate, PCV13 00:00:00 1 (Prevnar 13) Meningococcal B, OMV 2016-03-07 Completed NPI: [id number] 00:00:00 1 Heamophilus Influenza 2015-11-13 Completed NPI :[id number] B 00:00:00 1 Heamophilus Influenza 2015-11-13 Completed NPI :[id number] B 00:00:00 1 Heamophilus Influenza 2015-11-13 Completed NPI :[id number] B 00:00:00 1 Heamophilus Influenza 2015-11-13 Completed NPI :[id number] B 00:00:00 1 Heamophilus Influenza 2015-11-13 Completed NPI :[id number] B 00:00:00 1 Heamophilus Influenza 2015-11-13 Completed NPI :[id number] B 00:00:00 1 Heamophilus Influenza 2015-11-13 Completed NPI :[id number] B 00:00:00 1 Heamophilus Influenza 2015-11-13 Completed NPI :[id number] B 00:00:00 1 Heamophilus Influenza 2015-11-13 Completed NPI :[id number] B 00:00:00 1 Heamophilus Influenza 2015-11-13 Completed NPI :[id number] B 00:00:00 1 Heamophilus Influenza 2015-11-13 Completed NPI :[id number] B 00:00:00 1 Heamophilus Influenza 2015-11-13 Completed NPI :[id number] B 00:00:00 1 Heamophilus Influenza 2015-11-13 Completed NPI :[id number] B 00:00:00 1 Heamophilus Influenza 2015-11-13 Completed NPI :[id number] B 00:00:00 1 Meningococcal 2015-11-12 Completed NPI:[id number] 78 Polysaccharide (groups 00:00:00 1 A, C, Y and W-135) conjugate vaccine (MCV4P) Meningococcal 2015-11-12 Completed NPI:[id number] 78 Polysaccharide (groups 00:00:00 1 A, C, Y and W-135) conjugate vaccine (MCV4P) Meningococcal 2015-11-12 Completed NPI:[id number] 78 Polysaccharide (groups 00:00:00 1 A, C, Y and W-135) conjugate vaccine (MCV4P) Meningococcal 2015-11-12 Completed NPI:[id number] 78 Polysaccharide (groups 00:00:00 1 A, C, Y and W-135) conjugate vaccine (MCV4P) Meningococcal 2015-11-12 Completed NPI:[id number] 78 Polysaccharide (groups 00:00:00 1 A, C, Y and W-135) conjugate vaccine (MCV4P) Meningococcal 2015-11-12 Completed NPI:[id number] 78 Polysaccharide (groups 00:00:00 1 A, C, Y and W-135) conjugate vaccine (MCV4P) Meningococcal 2015-11-12 Completed NPI:[id number] 78 Polysaccharide (groups 00:00:00 1 A, C, Y and W-135) conjugate vaccine (MCV4P) Meningococcal 2015-11-12 Completed NPI:[id number] 78 Polysaccharide (groups 00:00:00 1 A, C, Y and W-135) conjugate vaccine (MCV4P) Meningococcal 2015-11-12 Completed NPI:[id number] 78 Polysaccharide (groups 00:00:00 1 A, C, Y and W-135) conjugate vaccine (MCV4P) Meningococcal 2015-11-12 Completed NPI:[id number] 78 Polysaccharide (groups 00:00:00 1 A, C, Y and W-135) conjugate vaccine (MCV4P) Meningococcal 2015-11-12 Completed NPI:[id number] 78 Polysaccharide (groups 00:00:00 1 A, C, Y and W-135) conjugate vaccine (MCV4P) Meningococcal 2015-11-12 Completed NPI:[id number] 78 Polysaccharide (groups 00:00:00 1 A, C, Y and W-135) conjugate vaccine (MCV4P) Meningococcal 2015-11-12 Completed NPI:[id number] 78 Polysaccharide (groups 00:00:00 1 A, C, Y and W-135) conjugate vaccine (MCV4P) Meningococcal 2015-11-12 Completed NPI:[id number] 78 Polysaccharide (groups 00:00:00 1 A, C, Y and W-135) conjugate vaccine (MCV4P) TDAP 2015-10-31 Completed NPI:[id number] 00:00:00 1 TDAP 2015-10-31 Completed NPI:[id number] 00:00:00 1 TDAP 2015-10-31 Completed NPI:[id number] 00:00:00 1 TDAP 2015-10-31 Completed NPI:[id number] 00:00:00 1 TDAP 2015-10-31 Completed NPI:[id number] 00:00:00 1 TDAP 2015-10-31 Completed NPI:[id number] 00:00:00 1 TDAP 2015-10-31 Completed NPI:[id number] 00:00:00 1 TDAP 2015-10-31 Completed NPI:[id number] 00:00:00 1 TDAP 2015-10-31 Completed NPI:[id number] 00:00:00 1 TDAP 2015-10-31 Completed NPI:[id number] 00:00:00 1 TDAP 2015-10-31 Completed NPI:[id number] 00:00:00 1 TDAP 2015-10-31 Completed NPI:[id number] 00:00:00 1 TDAP 2015-10-31 Completed NPI:[id number] 00:00:00 1 TDAP 2015-10-31 Completed NPI:[id number] 00:00:00 1 Pneumococcal 2014-04-01 Completed NPI:[id number] Polysaccharide, PPSV23 00:00:00 1 (PNEUMOVAX) Pneumococcal 2014-04-01 Completed NPI:[id number] 8 Polysaccharide, PPSV23 00:00:00 1 (PNEUMOVAX) Pneumococcal 2014-04-01 Completed NPI:[id number] 8 Polysaccharide, PPSV23 00:00:00 1 (PNEUMOVAX) Pneumococcal 2014-04-01 Completed NPI:[id number] 8 Polysaccharide, PPSV23 00:00:00 1 (PNEUMOVAX) Pneumococcal 2014-04-01 Completed NPI:[id number] 8 Polysaccharide, PPSV23 00:00:00 1 (PNEUMOVAX) Pneumococcal 2014-04-01 Completed NPI:[id number] 8 Polysaccharide, PPSV23 00:00:00 1 (PNEUMOVAX) Pneumococcal 2014-04-01 Completed NPI:[id number] 8 Polysaccharide, PPSV23 00:00:00 1 (PNEUMOVAX) Pneumococcal 2014-04-01 Completed NPI:[id number] 8 Polysaccharide, PPSV23 00:00:00 1 (PNEUMOVAX) Pneumococcal 2014-04-01 Completed NPI:[id number] 8 Polysaccharide, PPSV23 00:00:00 1 (PNEUMOVAX) Pneumococcal 2014-04-01 Completed NPI:[id number] 8 Polysaccharide, PPSV23 00:00:00 1 (PNEUMOVAX) Pneumococcal 2014-04-01 Completed NPI:[id number] 8 Polysaccharide, PPSV23 00:00:00 1 (PNEUMOVAX) Pneumococcal 2014-04-01 Completed NPI:[id number] 8 Polysaccharide, PPSV23 00:00:00 1 (PNEUMOVAX) Pneumococcal 2014-04-01 Completed NPI:[id number] 8 Polysaccharide, PPSV23 00:00:00 1 (PNEUMOVAX) Pneumococcal 2014-04-01 Completed NPI:[id number] 8 Polysaccharide, PPSV23 00:00:00 1 (PNEUMOVAX) Vital Signs Vital Name Observation Time Observation Value Comments Source Systolic blood pressure 2022-01-11 19:25:00 116 mm[Hg] Diastolic blood 2022-01-11 19:25:00 72 mm[Hg] NPI:1 [id number] pressure Heart rate 2022-01-11 19:25:00 104 /min NPI:[id number] Body height 2022-01-11 19:25:00 157.5 cm NPI:[id number] Body weight 2022-01-11 19:25:00 107.049 kg NPI:[id number] BMI 2022-01-11 19:25:00 43.16 kg/m2 NPI:[id number] Procedures Procedure Date / Time Performed Performing Clinician Lauren SAUNDERS HEAD NECK 2022-01-25 16:46:04 Mateo Hinton NPI:[id number] ASSIGNMENT OF BENEFITS 2022-01-25 15:19:10 Doctor Unassigned, No Name Encounters Start End Encounter Admission Attending Care Care Encounter Source Date/Time Date/Time Type Type Clinicians Facility Department ID 2022-10-18 2022-10-18 Outpatient R REJI [facility] [id number] P-20 NPI:183 10:00:00 10:00:00 MIROSLAVA [id number] 1 2022-04-14 2022-04-14 Outpatient Brock OLIVEIRAVIK [facility] [id number] 7P-20 NPI:183 09:00:00 09:00:00 [id number] 2022-02-15 2022-02-15 Outpatient R FLORENCE [facility] [id number] 7P-20 NPI:183 15:15:00 15:15:00 CAPRICE [id number] 2022-02-15 2022-02-15 Outpatient Brock HENRIQUEZ [facility] [id number] NPI:183 15:15:00 15:15:00 CAPRICE [id number] 1 2022-02-10 2022-02-10 Outpatient NAV GIANG [facility] [id number] 7P-20 NPI:183 13:20:00 13:20:00 [id number] 2022-02-10 2022-02-10 Outpatient Brock ANTONIONAV [facility] [id number] NPI:183 00:00:00 00:00:00 [id number] 1 2022-02-08 2022-02-08 Outpatient STELLA DAVILA [facility] [id number] NPI:183 10:00:00 10:00:00 STELLA WORLEY [id number] 2022-02-05 2022-02-05 [facility] [id number] -20 NPI:183 09:45:00 09:45:00 ISAC [id number] 1 2022-02-01 2022-02-01 Outpatient R STELLA WORLEY [facility] [id number] NPI:183 10:00:00 10:00:00 STELLA WORLEY [id number] 2022-02-01 2022-02-01 Telephone Momo [facility] [id number] NPI:183 00:00:00 00:00:00 [facility] 350.1.13.10 13 [id number] [place] 4.2.7.2.686 JOLLY?BLEA [id number] [place] [address] MEDICAL OFFICE BUILDING 2022-01-27 2022-01-27 [facility] 1..840.114 [id number] NPI:183 00:00:00 00:00:00 [facility] 350.1.13.10 13 [id number] Edward [facility] 4.2.7.2.686 JOLLY?BLEA [id number] [place] [address] MEDICAL OFFICE BUILDING 2022-01-27 2022-01-27 [facility] [id number] NPI:183 00:00:00 00:00:00 [facility] 350.1.13.10 13 [id number] Edward [facility] 4.2.7.2.686 JOLLY?BLEA [id number] [place] [address] MEDICAL OFFICE BUILDING 2022-01-27 2022-01-27 Telephone Vik Oliveira [facility] 1..840.114 [id number] NPI:183 00:00:00 00:00:00 [facility] 350.1.13.10 13 [id number] [place] 4.2.7.2.686 LOPE[place] [id number] [facility] 2022-01-25 2022-01-25 Outpatient R MARY JANE [facility] [id number] NPI:183 10:20:49 23:59:00 MATEO [id number] 1 2022-01-25 2022-01-25 [facility] 1..840.114 [id number] NPI:183 10:00:00 23:59:00 Paula GREGORIO 350.1.13.10 [id number] [place] 4.2.7.2.686 [place] [id number] 2022-01-25 2022-01-25 Orders Doctor CLAU [id number] [id number] NPI:183 00:00:00 00:00:00 Only Unassigned, GRAYSON 350.1.13.10 [id number] Emma [facility] 42.7.2.686 [id number] 2022-01-22 2022-01-22 [facility] 1.2.840.114 [id number] NPI:183 00:00:00 00:00:00 Jonah HEALTH 350.1.13.10 13 [id number] Edward [place] 4.2.7.2.686 JOLLY?BLEA [id number] [place] [address] MEDICAL OFFICE [facility] 2022-01-21 2022-01-21 [facility] 1.2.840.114 [id number] NPI:183 00:00:00 00:00:00 Wondiful A HEALTH 350.1.13.10 [id number] [place] 4.2.7.2.686 JOLLY?BLEA [id number] [place] [address] MEDICAL OFFICE [facility] 2022-01-20 2022-01-20 [facility] 1.2.840.114 [id number] NPI:183 00:00:00 00:00:00 Wondiful A HEALTH 350.1.13.10 [id number] [place] 4.2.7.2.686 JOLLY?BLEA [id number] [place] [address] MEDICAL OFFICE [facility] 2022-01-19 2022-01-19 [facility] 12.840.114 [id number] NPI:183 00:00:00 00:00:00 Jonah HEALTH 350.1.13.10 13 [id number] Edward [facility] 4.2.7.2.686 JOLLY?BLEA [id number] [place] [address] MEDICAL OFFICE [facility] 2022-01-18 2022-01-18 [facility] 1.2.840.114 [id number] NPI:183 00:00:00 00:00:00 Jonah HEALTH 350.1.13.10 13 [id number] Edward JG 4.2.7.2.686 JOLLY?BLEA [id number] [place] 044 MEDICAL OFFICE BUILDING 2022-01-13 2022-01-13 [facility] 1.2.840.114 [id number] NPI:183 00:00:00 00:00:00 Miroslava GREGORIO 350.1.13.10 1 [id number] [place] 4.2.7.2.686 PROFESSIO [id number] [facility] 204 [facility] 2022-01-11 2022-01-11 [facility] [id number] NPI:183 14:45:00 23:59:00 ISAC [id number] 1 2022-01-11 2022-01-11 Office [facility] 1.2.840.114 [id number] NPI:183 13:45:00 14:00:00 Visit [facility] 350.1.13.10 13 [id number] [facility] 4.2.7.2.686 JOLLY?BLEA [id number] [place] 198 MEDICAL OFFICE BUILDING 2021-07-10 2021-07-10 [place] [id number] NPI:198 05:13:00 05:13:00 1015 [id number] 2021-05-09 2021-05-09 Outpatient DMG DMG [id number] NPI:198 11:00:00 11:00:00 0814 [id number] 2021-05-07 2021-05-07 Outpatient DMG DMG [id number] NPI:198 12:00:00 12:00:00 [id number] 2021-02-25 2021-02-[address] [facility] [id number] [id number] 00:00:00 00:00:00 Ricardo Gregorio 350.1.13.10 [place] 4.2.7.2.686 Professio [id number] [address] Results This patient has no known results.
--- NOTE | 2022-02-02 14:21 | RAD REPORT ---
EXAM DESCRIPTION: RAD - Hand Left 3 View - 02/02/2022 2:11 pm CLINICAL HISTORY: PAIN COMPARISON: <Comparisons> FINDINGS: Mild to moderate soft tissue swelling is seen along the dorsum of the hand. No fracture or dislocation. No aggressive marrow pattern. Mild radiocarpal joint arthritic changes are present.
--- NOTE | 2022-02-02 14:30 | ER ---
Nurse's Notes [facility] Name: Linda Rahman Age: 46 yrs Sex: Female : 1975 Arrival Date: 02/02/2022 Time: 12:09 Bed 16 Private MD: Jonah Henderson Diagnosis: Localized swelling, mass and lump, left upper limb Presentation: 02/02 12:41 Chief complaint: Patient states: left hand swelling. Coronavirus screen: At this time, iw the client does not indicate any symptoms associated with coronavirus-19. Ebola Screen: Patient negative for fever greater than or equal to 101.5 degrees Fahrenheit, and additional compatible Ebola Virus Disease symptoms Patient denies exposure to infectious person. Patient denies travel to an Ebola-affected area in the 21 days before illness onset. No symptoms or risks identified at this time. Initial Sepsis Screen: Does the patient meet any 2 criteria? No. Patient's initial sepsis screen is negative. Does the patient have a suspected source of infection? No. Patient's initial sepsis screen is negative. Risk Assessment: Do you want to hurt yourself or someone else? Patient reports no desire to harm self or others. Onset of symptoms was February 02, 2022. 12:41 Method Of Arrival: Ambulatory iw 12:41 Acuity: HOLLEY 4 iw Triage Assessment: 14:31 General: Appears in no apparent distress. Behavior is calm, cooperative. 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 - Social history:: Smoking status: unknown. Screenin:30 Abuse screen: Denies threats or abuse. Denies injuries from another. Nutritional gan screening: No deficits noted. On. Tuberculosis screening: No symptoms or risk factors identified. Fall Risk None identified. Assessment: 12:41 Reassessment: IRINEO Torres in triage assessing pt. jl7 14:30 Pain: Complains of pain in left hand. Musculoskeletal: Reports pain in left hand Pain gan is 7 out of 10 on a pain scale. Vital Signs: 12:50 BP 139 / 81; Pulse 99; Resp 15; Temp 97.9; Pulse Ox 98% ; Weight 99.79 kg; Height 5 ft. jl7 2 in. (157.48 cm); Pain 10/10; 12:50 Body Mass Index 40.24 (99.79 kg, 157.48 cm) 7 ED Course: 12:09 Patient arrived in ED. am2 12:09 Jonah Henderson MD is Private Physician. am2 12:26 Brian Ledesma PA is [facility]. jr8 12:26 Mateo Odell MD is Attending Physician. jr8 12:27 Mateo Odell MD is Attending Physician. jr8 12:41 Triage completed. iw 12:41 Arm band placed on. iw 14:00 Anushka Gallegos RN is Primary Nurse. gan 14:13 XRAY Hand LEFT 3 View In Process Unspecified. EDMS 14:29 Jonah Henderson MD is Referral Physician. jr8 14:30 Patient has correct armband on for positive identification. Bed in low position. gan 14:30 No provider procedures requiring assistance completed. Patient did not have IV access gan during this emergency room visit. Administered Medications: No medications were administered Outcome: 14:29 Discharge ordered by . jr8 14:44 Discharged to home ambulatory. gan 14:44 Condition: good 14:44 Discharge instructions given to patient. 14:44 Patient left the ED. gan Signatures: Dispatcher [employer] EDMS Marychuy Galvez, RN RN Brian Ledesma PA PA jr8 Jayden Bond RN RN jl7 Adele Koo am2 Anushka Gallegos RN RN gan
--- NOTE | 2022-02-02 14:30 | EDPHYS ---
Physician Documentation [facility] Name: Linda Rahman Age: 46 yrs Sex: Female : 1975 Arrival Date: 02/02/2022 Time: 12:09 Bed 16 Private MD: Jonah Henderson ED Physician Mateo Odell HPI: 02/02 12:27 This 46 yrs old Female presents to ER via Unassigned with complaints of Arm jr8 Pain. 12:27 The patient or guardian complains of decreased range of motion, pain, swelling, jr8 tenderness. The complaints affect the left wrist and left hand. Onset: The symptoms/episode began/occurred gradually, 5 day(s) ago. Treatment prior to arrival includes: no previous treatment. Modifying factors: The symptoms are alleviated by nothing. the symptoms are aggravated by movement. Associated signs and symptoms: The patient has no apparent associated signs or symptoms. Severity of symptoms: At their worst the symptoms were moderate, in the emergency department the symptoms are unchanged. The patient has not experienced similar symptoms in the past. The patient has not recently seen a physician. 12:29 Patient stated that she started with left hand swelling to dorsal hand that has now jr8 extended to her finger. Denies trauma. 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 - Social history:: Smoking status: unknown. ROS: 12:29 Eyes: Negative for injury, pain, redness, and discharge, ENT: Negative for injury, jr8 pain, and discharge, Neck: Negative for injury, pain, and swelling, Cardiovascular: Negative for chest pain, palpitations, and edema, Respiratory: Negative for shortness of breath, cough, wheezing, and pleuritic chest pain, Abdomen/GI: Negative for abdominal pain, nausea, vomiting, diarrhea, and constipation, Back: Negative for injury and pain, Skin: Negative for injury, rash, and discoloration, Neuro: Negative for headache, weakness, numbness, tingling, and seizure. 12:29 MS/extremity: Positive for pain, swelling, tenderness, of the left hand. Exam: 12:29 Constitutional: This is a well developed, well nourished patient who is awake, alert, jr8 and in no acute distress. Cardiovascular: Regular rate and rhythm with a normal S1 and S2. No gallops, murmurs, or rubs. Normal PMI, no JVD. No pulse deficits. Respiratory: Lungs have equal breath sounds bilaterally, clear to auscultation and percussion. No rales, rhonchi or wheezes noted. No increased work of breathing, no retractions or nasal flaring. Skin: Warm, dry with normal turgor. Normal color with no rashes, no lesions, and no evidence of cellulitis. Neuro: Awake and alert, GCS 15, oriented to person, place, time, and situation. Cranial nerves II-XII grossly intact. Motor strength 5/5 in all extremities. Sensory grossly intact. 12:29 Musculoskeletal/extremity: Extremities: grossly normal except: noted in the left hand: Patient has swelling with tenderness to dorsal left hand between the 3rd and 4th digits with extension into her 3rd finger to the proximal phalanx. No erythema present. No other lesions or rashes present. Remainder of hand unremarkable, ROM: intact in all extremities, Circulation is intact in all extremities. Sensation intact. Negative Tinel test . Vital Signs: 12:50 BP 139 / 81; Pulse 99; Resp 15; Temp 97.9; Pulse Ox 98% ; Weight 99.79 kg; Height 5 ft. jl7 2 in. (157.48 cm); Pain 10/10; 12:50 Body Mass Index 40.24 (99.79 kg, 157.48 cm) jl7 MDM: 12:38 Patient medically screened. jr8 14:28 Data reviewed: vital signs, nurses notes, radiologic studies, plain films. Data jr8 interpreted: Pulse oximetry: on room air is 98 %. Interpretation: normal. Counseling: I had a detailed discussion with the patient and/or guardian regarding: the historical points, exam findings, and any diagnostic results supporting the discharge/admit diagnosis, radiology results, the need for outpatient follow up, a family practitioner, to return to the emergency department if symptoms worsen or persist or if there are any questions or concerns that arise at home. ED course: Discussed with patient that it is mild soft tissue swelling. Most likely small hematoma. Can be from spontaneous capillary bursting or from trauma that she did not realize she had done. No underlying fracture. At this time recommend ice therapy and NSAID based products for now. If not better within 1 week or worse to come back for further evaluation or follow-up with her PCP.. 02/02 12:29 Order name: XRAY Hand LEFT 3 View; Complete Time: 14:28 jr8 Administered Medications: No medications were administered Disposition: 14:58 Co-signature as Attending Physician, Mateo Odell MD I agree with the assessment and kdr plan of care. Disposition Summary: 02/02/22 14:29 Discharge Ordered Location: Home jr8 Problem: new jr8 Symptoms: have improved jr8 Condition: Stable jr8 Diagnosis - Localized swelling, mass and lump, left upper limb jr8 Followup: jr8 - With: Jonah Henderson MD - When: 1 week - Reason: Recheck today's complaints, Continuance of care, Re-evaluation by your physician Discharge Instructions: - Discharge Summary Sheet jr8 - Hematoma jr8 - Hand Pain jr8 Forms: - Medication Reconciliation Form jr8 - Thank You Letter jr8 - Antibiotic Education jr8 - Prescription Opioid Use jr8 Signatures: Dispatcher [employer] EDMS Mateo Odell MD MD kdr Roszak, Josh, PA PA jr8 Jayden Bond RN RN jl7
[2022-02-02 16:38] VITALS: BP 139/81; TEMP 97.9; O2SAT 98
== END 2022-02-02 14:44 | disposition home or self-care (01) ==
LOC: ER 12:09
DX: R22.32 Localized swelling, mass and lump, left upper limb (principal); M79.642 Pain in left hand; M25.532 Pain in left wrist; E11.9 Type 2 diabetes mellitus without complications; I10 Essential (primary) hypertension; Z88.1 Allergy status to other antibiotic agents; Z88.5 Allergy status to narcotic agent; Z88.8 Allergy status to other drugs, medicaments and biological substances
CPT/HCPCS: 99283

== ENCOUNTER 2022-02-16 15:21 | Emergency (ER) | payer OTHER ==
--- OUTSIDE RECORDS SUMMARY | 2022-02-16 15:25 | XMS REPORT | Continuity of Care Document ---
:1975 Author Organization [facility] t Address [address] [place] [address] Care Team Providers Name Role Phone Scotty Henderson MD Primary Care Physician Scotty Henderson MD Attending Clinician Jessica_Barry Attending Clinician Unavailable Gomez HOLLINS, K.H. Attending Clinician Eladia Admitting Clinician Unavailable Payers Payer Name Policy Type Policy Number Effective Date Expiration Date S [facility] HR8 2021 (MEDICARE 00:00:00 REPLACEMENT HMO) Problems Condition Condition Condition Status Onset Resolution Last Treating Co mments Source Name Details Category Date Date Treatment Clinician Date Weakening Weakening Disease Active Uni vers of pelvic of pelvic 01-01 ity of fundus fundus 00:00: [place] 00 Medical Branch Intestinal Intestinal Disease Active Overview : Univers metaplasia metaplasia -05 Formattin ity of of body of of body of 00:00: g of this [place] stomach stomach 00 note Medical without without might be Branch dysplasia dysplasia different from the original. Added automatic ally from request for surgery [id number] Chronic Chronic Disease Active Overview: Univ ers superficia superficia -05 Formattin ity of l l 00:00: g of this [place] gastritis gastritis 00 note Medi cipriano without without might be Branch bleeding bleeding different from the original. 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 Added automatic ally from request for surgery [id number] Indigestio Indigestio Disease Active 2020-09 Overview : Univers n n 2-15 Formattin ity of 00:00: g of this note Medical might be Branch different from the original. Added automatic ally from request for surgery [id number] Bloating Bloating Disease Active 2020-09 Overview: Un jerrod 2-15 Formattin ity of 00:00: g of this note Medical might be Branch different from the original. 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 1-11 ity of 00:00: [place] 00 Medical Branch Umbilical Umbilical Disease Active Uni vers hernia hernia 1-11 ity of 00:00: [place] 00 Medical Branch Renal Renal Disease Active Univers cyst, cyst, 1-11 ity of right right 00:00: 00 Medical Branch GERD GERD Disease Active [...] 7-10 ity of nodules nodules 00:00: [place] 00 Medical Branch Tremor Tremor Disease Active Univers 7-10 ity of 00:00: [place] [facility] Twitching Twitching Disease Active Uni vers 7-10 ity of 00:00: [place] 00 Medical Branch Asthma, Asthma, Disease Active Univers mild mild 5-23 ity of persistent persistent 00:00: [place] [facility] [place] Fatty Fatty Disease Active Univers liver liver 3-24 ity of 00:00: [place] [facility] Hepatomega Hepatomega Disease Active U [...] tubal 2-05 ity of ligation ligation 00:00: Medical Branch 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 00:[place] disorder, disorder, 00 [facility] in in Branch remission remission Hypothyroi Hypothyroi Disease Active U nivers d d 2-05 ity of 00:00: [facility] Branch Essential Essential Disease Active Uni vers hypertensi hypertensi 2-05 it y of on, benign on, benign 00:00: [place] 00 [facility] Well woman Well woman Disease Active U nivers exam exam 2-05 ity of 00:00: [facility] Chest pain Chest pain Disease Active U nivers 9-13 ity of 00:00: [facility] Peripheral Peripheral Disease Active U nivers neuropathy neuropathy it y of [facility] 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 ity of [facility] PCOS PCOS Disease Active Univers (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) [facility] Branch Allergies, Adverse Reactions, Alerts Allergy Allergy [...] g and breathing Meclizin Propensi Active Anaphylaxis U nivers e ty to 23 ity of adverse 00:00: [place] reaction 00 Medical s Branch Amoxicil Propensi Active Hives Univer s franca ty to 05-30 ity of adverse 00:00: [place] reaction Medical s Branch Meperidi Propensi Active Hallucinatio Univers ne Hcl ty to ns 05-30 ity of adverse 00:00: [place] reaction 00 Medical s Branch Ziprasid Propensi Active Hives Univer s one Hcl ty to 05-30 ity of adverse 00:00: [place] reaction 00 Medical s Branch Social History Social Habit Start Date Stop Date Quantity Comments Source Exposure to 2022-02-05 2022-02-15 Not sure [facility] SARS-CoV-2 (event) 00:00:00 09:14:00 Medica l Branch Alcohol intake 2022-02-08 2022-02-08 0 /d [facility] 00:00:00 00:00:00 Medical Branch Cigarettes smoked 2015-05-31 2015-05-31 [facility] [place] [facility] current (pack per 00:00:00 00:00:00 Medical Branch day) - Reported Cigarette 2015-05-31 2015-05-31 [facility] pack-years 00:00:00 00:00:00 Medical Branch Tobacco use and 2015-05-31 2015-05-31 Never used [facility] exposure 00:00:00 00:00:00 Medical Branch History of tobacco 1982-10-20 2007-10-20 Smoker [facility] use 00:00:00 00:00:00 Medical Branch [birth year] [facility] 00:00:00 00:00:00 Medical Branch Smoking Status Start Date Stop Date Source Former smoker 2015-05-31 00:00:00 2015-05-31 00:00:00 [facility] Medical Branch Medications Ordered Filled Start Stop Current Ordering Indication Dosage Frequency Signature Comments Components Source Medication Medication Date Date Medication? Clinician (SIG) Name Name ibuprofen Yes [id number] 600mg Take 1 Univers 600 mg 5-19 [id number] tablet by ity of tablet 00:00: mouth [place] 00 every 6 Medical (six) Branch hours as needed for Pain (scale 4-6). ibuprofen 2021-0 Yes [id number] 600mg Take 1 Univers 600 mg 5-19 [id number] tablet by ity of tablet 00:00: mouth [place] 00 every 6 Medical (six) Branch hours as needed for Pain (scale 4-6). SUMAtriptan 2021-0 Yes [id number] 50mg Take 1 Univers 50 mg 5-16 tablet by ity of tablet 00:00: mouth as [place] 00 needed for Medical Migraine. Branch topiramate 2021-0 Yes [id number] 50mg Take 2 Univers 25 mg 5-16 tablets by ity of tablet 00:00: mouth 2 (two) Medical times Branch daily. SUMAtriptan 2021-0 Yes [id number] 50mg Take 1 Univers 50 mg 5-16 tablet by ity of tablet 00:00: mouth as [place] 00 needed for Medical Migraine. Branch topiramate 2021-0 Yes [id number] 50mg Take 2 Univers 25 mg 5-16 tablets by ity of tablet 00:00: mouth (two) Medical times Branch daily. pregabalin 2021-0 Yes [id number] 150mg Take 1 Univers 150 mg 4-29 capsule by ity of capsule 00:00: mouth 3 (three) Medical times Branch daily. busPIRone 2021-0 Yes [id number] 20mg Take 2 Un jerrod 10 mg 4-29 tablets by ity of tablet 00:00: mouth (two) Medical times Branch daily. citalopram 2021-0 Yes [id number] 40mg Take 1 U nivers 40 mg 4-29 tablet by ity of tablet 00:00: mouth 00 daily. Medical Branch pregabalin 2021-0 Yes [id number] 150mg Take 1 Univers 150 mg 4-29 capsule by ity of capsule 00:00: mouth 3 (three) Medical times Branch daily. busPIRone 2021-0 Yes [id number] 20mg Take 2 Un jerrod 10 mg 4-29 tablets by ity of tablet 00:00: mouth 2 (two) Medical times Branch daily. citalopram Yes [id number] 40mg Take 1 U nivers 40 mg 4-29 tablet by ity of tablet 00:00: mouth [place] 00 daily. Medical Branch amitriptyli 2021- No [id number] 100mg Take 2 Univers ne 50 mg 4-29 05-24 tablets by ity of tablet 00:00: 00:00 mouth at [place] 00 :00 bedtime. Medical Branch amitriptyli 2021- No [id number] 100mg Take 2 Univers ne 50 mg 4-29 05-24 tablets by ity of tablet 00:00: 00:00 mouth at [place] 00 :00 bedtime. Medical Branch pantoprazol Yes [id number] 40mg Take 1 Univers e 40 mg EC 4-04 tablet by ity of tablet 00:00: mouth [place] 00 daily. Medical Branch pantoprazol Yes [id number] 40mg Take 1 Univers e 40 mg EC 4-04 tablet by ity of tablet 00:00: mouth [place] 00 daily. Medical Branch FOLIC ACID Yes Take by Uni vers ORAL 3-18 mouth ity of 14:37: daily. [place] [address] Medical Branch MULTIVIT Yes Take by [facility] rs &MINERALS/F 3-18 mouth. ity of ERROUS FUM 14:37: [place] (MULTI 08 Medical VITAMIN Branch ORAL) METHYLCELLU Yes [facility] s LOSE (FIBER 3-18 ity of THERAPY 14:37: [place] MISC) 08 Medical Branch DOCUSATE Yes Take by [facility] rs SODIUM 3-18 mouth. ity of (COLACE 14:37: [place] ORAL) 08 Medical Branch vitamin C Yes 1000mg Take 1,000 Univers with derrell 3-18 mg by ity of hips 14:37: mouth [place] (VITAMIN C) 08 daily. Medica l 1,000 mg Branch tablet cholecalcif Yes 1000U Take 1,000 Univers edmar, 3-18 Units by ity of vitamin D3, 14:37: mouth [place] (VITAMIN 08 daily. Medical D3) 1,000 Branch unit tablet CRANBERRY Yes Take by [facility] ers FRUIT 3-18 mouth ity of EXTRACT 14:37: daily. [place] (CRANBERRY 08 Medical ORAL) Branch CALCIUM [facility] 3-18 mouth ity of 14:37: daily. [place] [address] Medical Branch DOCOSAHEXAN Yes 1000mg Take 1,000 Univers OIC 3-18 mg by ity of ACID/EPA 14:37: mouth [place] (FISH OIL 08 daily. Medical ORAL) Branch BIOTIN ORAL Yes Take by Un jerrod 3-18 mouth. ity of 14:37: [place] [address] Medical Branch FOLIC ACID Yes Take by Uni vers ORAL 3-18 mouth ity of 14:37: daily. [place] [address] Medical Branch MULTIVIT Yes [facility] &MINERALS/F 3-18 mouth. ity of ERROUS FUM 14:37: [place] (MULTI 08 Medical VITAMIN Branch ORAL) METHYLCELLU Yes [facility] s LOSE (FIBER 3-18 ity of THERAPY 14:37: [place] MISC) Medical Branch DOCUSATE Yes Take by [facility] rs SODIUM 3-18 mouth. ity of (COLACE 14:37: [place] ORAL) Medical Branch vitamin C Yes 1000mg Take 1,000 Univers with derrell 3-18 mg by ity of hips 14:37: mouth [place] (VITAMIN C) 08 daily. Medica l 1,000 mg Branch tablet cholecalcif Yes 1000U Take 1,000 Univers edmar, 3-18 Units by ity of vitamin D3, 14:37: mouth [place] (VITAMIN 08 daily. Medical D3) 1,000 Branch unit tablet CRANBERRY Yes Take by [facility] ers FRUIT 3-18 mouth ity of EXTRACT 14:37: daily. [place] (CRANBERRY 08 Medical ORAL) Branch CALCIUM Yes [facility] 3-18 mouth ity of 14:37: daily. [place] [address] Medical Branch DOCOSAHEXAN Yes 1000mg Take 1,000 Univers OIC 3-18 mg by ity of ACID/EPA 14:37: mouth [place] (FISH OIL 08 daily. Medical ORAL) Branch BIOTIN ORAL Yes Take by Un jerrod 3-18 mouth. ity of 14:37: [place] [address] Medical Branch Blood-Gluco Yes [id number] Use twice Univers se Meter 3-08 a day for ity of (ONETOUCH 00:00: ICD CODE [place] VERIO FLEX 00 E11.65 Medical START) Kit Branch Blood-Gluco Yes [id number] Use twice Univers se Meter 3-08 a day for ity of (ONETOUCH 00:00: ICD CODE [place] VERIO FLEX 00 E11.65 Medical START) Kit Branch sucralfate 2021-2021- No [id number] 1g Take 1 Univers 1 gram 2-20 05-24 tablet by ity of tablet 00:00: 00:00 mouth [place] 00 :00 before Medical meals and Branch at bedtime. sucralfate 2021-2021- No [id number] 1g Take 1 Univers 1 gram 2-20 05-24 tablet by ity of tablet 00:00: 00:00 mouth [place] 00 :00 before Medical meals and Branch at bedtime. Lancing 2021- No [id number] To use Uni vers Device with 2-08 05-24 twice a ity of Lancets 00:00: 00:00 day for [place] (ONE TOUCH 00 :00 ICD code Medic al DELICA) Kit E11.65 Branch blood sugar 2021- No [id number] Use twice Univers diagnostic 2-08 05-24 a day for ity of (ONETOUCH 00:00: 00:00 ICD CODE [place] VERIO TEST 00 :00 E11.65 Medical STRIPS) Branch strip [place]ancing 2021- No [id number] To use Uni vers Device with 2-08 05-24 twice a ity of Lancets 00:00: 00:00 day for [place] (ONE TOUCH 00 :00 ICD code Medic al DELICA) Kit E11.65 Branch blood sugar 2021- No [id number] Use twice Univers diagnostic 2-08 05-24 a day for ity of (ONETOUCH 00:00: 00:00 ICD CODE [place] VERIO TEST 00 :00 E11.65 Medical STRIPS) Branch strip mirabegron Yes [id number] 50mg Take 1 Univers (MYRBETRIQ) 1-18 tablet by ity of 50 mg 00:00: mouth [place] tablet 00 daily. Medical Branch mirabegron Yes [id number] 50mg Take 1 Univers (MYRBETRIQ) 1-18 tablet by ity of 50 mg 00:00: mouth [place] tablet 00 daily. Medical Branch semaglutide 2020-09 Yes [id number] Inject Univers (OZEMPIC) 2-01 0.25 mg ity of 0.25 mg or 00:00: under the [place] 0.5 mg(2 00 skin Medical mg/1.5 mL) weekly. Branch PnIj metformin 2020-09 Yes [id number] 500mg Take 1 U nivers ER 500 mg 2-01 tablet by ity o f 24 hr 00:00: mouth [place] tablet 00 daily with Medical breakfast. Branch STOP REGULAR METFORMIN. semaglutide 2020-09 Yes [id number] Inject Univers (OZEMPIC) 2-01 0.25 mg ity of 0.25 mg or 00:00: under the [place] 0.5 mg(2 00 skin Medical mg/1.5 mL) weekly. Branch PnIj metformin 2020-09 Yes [id number] 500mg Take 1 U nivers ER 500 mg 2-01 tablet by ity o f 24 hr 00:00: mouth [place] tablet 00 daily with Medical breakfast. Branch STOP REGULAR METFORMIN. triamcinolo 2020-09 Yes [id number] Apply to Univers ne 0.025 % -09 area(s) 3 ity of ointment 00:00: (three) [place] 00 times Medical daily. For Branch itching diltiazem 2020-09 Yes [id number] 120mg Take 1 U nivers (CARTIA XT) -09 capsule by it y of 120 mg 24 00:00: mouth 2 [place] hr capsule 00 (two) Medical times Branch daily. rosuvastati 2020-09 Yes [id number] 10mg Take 1 Univers n 10 mg -09 tablet by ity of tablet 00:00: mouth at [place] 00 bedtime. Medical Branch cyanocobala 2020-09 Yes [id number] 1000ug 1 mL by Univers min 1,000 1-09 Intramuscu ity of mcg/mL 00:00: lar route [place] injection 00 every 2 Medical (two) Branch weeks. levothyroxi 2020-09 Yes [id number] 50ug Take 1 Univers ne 50 mcg 1-09 tablet by ity o f tablet 00:00: mouth [place] 00 every Medical morning. Branch fluticasone 2020-09 Yes [id number] 2{puff} Inhale 2 Univers propionate 1-09 Puffs ity of (FLOVENT 00:00: every 12 [place] HFA) 110 00 (twelve) Medical mcg/actuati hours. Branch on inhaler Rinse mouth after each use. levalbutero 2020-09 Yes [id number] .63mg Inhale Univers l 0.63 mg/3 1-09 0.63 mg 3 ity of mL 00:00: (three) [place] nebulizer 00 times Medical solution daily as Branch needed for Wheezing or Shortness of Breath. losartan 50 2020-09 Yes [id number] 50mg Take 1 Univers mg tablet -09 tablet by ity o f 00:00: mouth 2 [place] 00 (two) Medical times Branch daily. clotrimazol 2020-09 Yes [id number] Apply to Univers e-betametha -09 area(s) 2 ity of sone cream 00:00: (two) [place] 00 times Medical daily. Branch cyclobenzap 2020-09 Yes [id number] TAKE 1 Univers rine 5 mg -09 TABLET BY ity o f tablet 00:00: MOUTH [place] 00 EVERY 8 Medical HOURS Branch NEEDED econazole 2020-09 Yes [id number] Apply to Univers nitrate 1 % 10-04 area(s) 2 ity of cream 00:00: (two) [place] 00 times Medical daily. Branch albuterol 2020-09 Yes [id number] 2{puff} Inhale 2 Univers (PROAIR 1-09 Puffs ity of HFA) 90 00:00: every 6 [place] mcg/actuati 00 (six) Medical on inhaler hours as Branc h needed for Wheezing or Shortness of Breath. triamcinolo 2020-09 Yes [id number] Apply to Univers ne 0.025 % 10-04 area(s) 3 ity of ointment 00:00: (three) [place] 00 times Medical daily. For Branch itching diltiazem 2020-09 Yes [id number] 120mg Take 1 U nivers (CARTIA XT) -09 capsule by it y of 120 mg 24 00:00: mouth 2 [place] hr capsule 00 (two) Medical times Branch daily. rosuvastati 2020-09 Yes [id number] 10mg Take 1 Univers n 10 mg -09 tablet by ity of tablet 00:00: mouth at [place] 00 bedtime. Medical Branch cyanocobala 2020-09 Yes [id number] 1000ug 1 mL by Univers min 1,000 -09 Intramuscu ity of mcg/mL 00:00: lar route [place] injection 00 every 2 Medical (two) Branch weeks. levothyroxi 2020-09 Yes [id number] 50ug Take 1 Univers ne 50 mcg 1-09 tablet by ity o f tablet 00:00: mouth [place] 00 every Medical morning. Branch fluticasone 2020-09 Yes [id number] 2{puff} Inhale 2 Univers propionate 1-09 Puffs ity of (FLOVENT 00:00: every 12 [place] HFA) 110 00 (twelve) Medical mcg/actuati hours. Branch on inhaler Rinse mouth after each use. levalbutero 2020-09 Yes [id number] .63mg Inhale Univers l 0.63 mg/3 1-09 0.63 mg 3 ity of mL 00:00: (three) [place] nebulizer 00 times Medical solution daily as Branch needed for Wheezing or Shortness of Breath. losartan 50 2020-09 Yes [id number] 50mg Take 1 Univers mg tablet -09 tablet by ity o f 00:00: mouth 2 [place] 00 (two) Medical times Branch daily. clotrimazol 2020-09 Yes [id number] Apply to Univers e-betametha 10-04 area(s) 2 ity of sone cream 00:00: (two) [place] 00 times Medical daily. Branch cyclobenzap 2020-09 Yes [id number] TAKE 1 Univers rine 5 mg -09 TABLET BY ity o f tablet 00:00: MOUTH [place] 00 EVERY 8 Medical HOURS Branch NEEDED econazole 2020-09 Yes [id number] Apply to Univers nitrate 1 % 09 area(s) 2 ity of cream 00:00: (two) [place] 00 times Medical daily. Branch albuterol 2020-09 Yes [id number] 2{puff} Inhale 2 Univers (PROAIR 1-09 Puffs ity of HFA) 90 00:00: every 6 [place] mcg/actuati 00 (six) Medical on inhaler hours as Branc h needed for Wheezing or Shortness of Breath. diclofenac 2020-09- No [id number] 75mg Take 1 Univers 75 mg EC 1-09 05-24 tablet by ity o f tablet 00:00: 00:00 mouth 2 [place] 00 :00 (two) Medical times Branch daily with meals as needed for Pain. USE SPARINGLY DUE TO POSSIBLE SIDE EFFECTS. Insulin 2020-09- No [id number] Use as Uni vers [place], 10-04 directed ity of Disposable, 00:00: 00:00 to inject [place] (PEN 00 :00 Ozempic Medical NEEDLE) 32 once Branch gauge x weekly /32" Ndle lancets 2020-09- No [id number] Use twice Univers (ONE TOUCH 10-04 a day for ity of DELICA) 33 00:00: 00:00 ICD code [place] gauge Misc 00 :00 E11.65 Medical Branch diclofenac 2020-09- No [id number] 75mg Take 1 Univers 75 mg EC 10-04 tablet by ity o f tablet 00:00: 00:00 mouth 2 [place] 00 :00 (two) Medical times Branch daily with meals as needed for Pain. USE SPARINGLY DUE TO POSSIBLE SIDE EFFECTS. Insulin 2020-09- No [id number] Use as Uni vers [place], 10-04 directed ity of Disposable, 00:00: 00:00 to inject [place] (PEN 00 :00 Ozempic Medical NEEDLE) 32 once Branch gauge x weekly /32" Ndle lancets 2020-09- No [id number] Use twice Univers (ONE TOUCH 10-04 a day for ity of DELICA) 33 00:00: 00:00 ICD code [place] gauge Misc 00 :00 E11.65 Medical Branch proMETHazin 2020-1 Yes TAKE 1 Univ ers e 25 mg 0-22 TABLET BY ity of tablet 00:00: MOUTH [place] 00 EVERY 6 Medical HOURS Branch NEEDED FOR NAUSEA proMETHazin 2020- Yes TAKE 1 Univ ers e 25 mg 0-22 TABLET BY ity of tablet 00:00: MOUTH [place] 00 EVERY 6 Medical HOURS Branch NEEDED FOR NAUSEA Ginkgo 2019-0 Yes Univers [place] 120 1-16 ity of mg Tab 00:00: [place] 00 Medical Branch Ginkgo 2019-0 Yes Univers [place] 120 1-16 ity of mg Tab 00:00: [place] 00 Medical Branch FERROUS 2018-0 Yes [id number] TAKE ONE Uni vers SULFATE 325 8-13 TABLET BY ity of mg (65 mg 00:00: MOUTH [place] iron) 00 THREE Medical tablet TIMES [place] DAILY WITH MEALS FERROUS Yes [id number] TAKE ONE Uni vers SULFATE 325 8-13 TABLET BY ity of mg (65 mg 00:00: MOUTH [place] iron) 00 THREE Medical tablet TIMES [place] DAILY WITH MEALS coQ10, Yes [id number] 1{capsu Take 1 U nivers ubiquinol, 1-16 le} capsule by ity of 100 mg Cap 00:00: mouth [place] 00 daily. Medical Branch coQ10, Yes [id number] 1{capsu Take 1 U nivers ubiquinol, 1-16 le} capsule by ity of 100 mg Cap 00:00: mouth [place] 00 daily. [facility] loratadine Yes [id number] 10mg Take 1 Univers 10 mg 1-23 tablet by ity of tablet 00:00: mouth [place] 00 daily. [facility] loratadine Yes [id number] 10mg Take 1 Univers 10 mg 1-23 tablet by ity of tablet 00:00: mouth [place] 00 daily. [facility] Immunizations Ordered Immunization Filled Immunization Date Status Commen ts Source Name Name Twinrix (hep a/hep b) 2022-01-14 Completed Uni versity of 00:00:00 [facility] Twinrix (hep a/hep b) 2022-01-14 Completed Uni versity of 00:00:00 [facility] SARS-COV-2 COVID-19 2021-07-23 Completed Unive rsity of PFIZER VACCINE 00:00:00 [facility] SARS-COV-2 COVID-19 2021-07-23 Completed Unive rsity of PFIZER VACCINE 00:00:00 [facility] Influenza Virus 2021-05-27 Completed Universit y of Vaccine (3+ yrs) 00:00:00 [facility] Influenza Virus 2021-05-27 Completed Universit y of Vaccine (3+ yrs) 00:00:00 [facility] SARS-COV-2 COVID-19 2020-12-13 Completed Unive rsity of PFIZER VACCINE 00:00:00 [facility] SARS-COV-2 COVID-19 2020-12-13 Completed Unive rsity of PFIZER VACCINE 00:00:00 [facility] SARS-COV-2 COVID-19 2020-11-22 Completed Unive rsity of PFIZER VACCINE 00:00:00 [facility] SARS-COV-2 COVID-19 2020-11-22 Completed Unive rsity of PFIZER VACCINE 00:00:00 [facility] Influenza Virus 2020-05-27 Completed Universit y of Vaccine Recomb Quad 00:00:00 [place] [facility] IM, Preserv and ABX Branc h Free 18-64 YRS Influenza Virus 2020-05-27 Completed Universit y of Vaccine Recomb Quad 00:00:00 [facility] IM, Preserv and ABX Branc h Free 18-64 YRS Pneumococcal 2019-08-10 Completed University o f Polysaccharide, 00:00:00 [facility] ical PPSV23 (PNEUMOVAX) Branch TDAP (ADACEL) VACCINE 2019-08-10 Completed Uni versity of 00:00:00 [facility] TDAP 2019-08-10 Completed University of 00:00:00 [facility] Pneumococcal 2019-08-10 Completed University o f Polysaccharide, 00:00:00 [facility] ical PPSV23 (PNEUMOVAX) Branch TDAP (ADACEL) VACCINE 2019-08-10 Completed Uni versity of 00:00:00 [facility] TDAP 2019-08-10 Completed University of 00:00:00 [facility] Influenza Virus 2019-07-04 Completed Universit y of Vaccine 00:00:00 [facility] Influenza Virus 2019-07-04 Completed Universit y of Vaccine Recomb Quad 00:00:00 [facility] IM, Preserv and ABX Branc h Free 18-64 YRS Influenza Virus 2019-07-04 Completed Universit y of Vaccine 00:00:00 [facility] Influenza Virus 2019-07-04 Completed Universit y of Vaccine Recomb Quad 00:00:00 [place] [facility] IM, Preserv and ABX Branc h Free 18-64 YRS Influenza Virus 2018-06-30 Completed Universit y of Vaccine Quad IM 3+ 00:00:00 [facility] Influenza Virus 2018-06-30 Completed Universit y of Vaccine Quad IM 3+ 00:00:00 [facility] Influenza Virus 2017-06-15 Completed Universit y of Vaccine Quad ID [id number] 00:00:00 [facility] Influenza Virus 2017-06-15 Completed Universit y of Vaccine Quad ID [id number] 00:00:00 [facility] Branch Influenza Virus 2016-08-05 Completed Universit y of Vaccine Quad IM 00:00:00 [place] [facility] ical Multi-dose 6+ MO Branch Influenza Virus 2016-08-05 Completed Universit y of Vaccine Quad IM 00:00:00 [place] [facility] ical Multi-dose 6+ MO Branch Pneumococcal 13 2016-03-07 Completed Universit y of Conjugate, PCV13 00:00:00 [facility] dical (Prevnar 13) Branch Meningococcal B, OMV 2016-03-07 Completed Univ ersity of 00:00:00 [facility] Pneumococcal 13 2016-03-07 Completed Universit y of Conjugate, PCV13 00:00:00 [facility] dical (Prevnar 13) Branch Meningococcal B, OMV 2016-03-07 Completed Univ ersity of 00:00:00 [facility] Heamophilus Influenza 2015-11-13 Completed Uni versity of B 00:00:00 [facility] Heamophilus Influenza 2015-11-13 Completed Uni versity of B 00:00:00 [facility] Meningococcal 2015-11-12 Completed University of Polysaccharide 00:00:00 [place] Medi cipriano (groups A, C, Y and Branc h W-135) conjugate vaccine (MCV4P) Meningococcal 2015-11-12 Completed University of Polysaccharide 00:00:00 [facility] (groups A, C, Y and Branc h W-135) conjugate vaccine (MCV4P) TDAP 2015-10-31 Completed [facility] 00:00:00 [facility] TDAP 2015-10-31 Completed [facility] 00:00:00 [facility] Pneumococcal 2014-04-01 Completed University o f Polysaccharide, 00:00:00 [facility] ical PPSV23 (PNEUMOVAX) Branch Pneumococcal 2014-04-01 Completed University o f Polysaccharide, 00:00:00 [facility] ical PPSV23 (PNEUMOVAX) Branch Vital Signs Vital Name Observation Time Observation Value Comments Source Systolic blood 2022-02-16 14:05:00 93 mm[Hg] Univer sity of pressure [facility] Diastolic blood 2022-02-16 14:05:00 57 mm[Hg] Unive rsity of pressure [facility] Heart rate 2022-02-16 14:05:00 96 /min [facility]i ty of [facility] Body temperature 2022-02-16 14:05:00 36.72 [facility] Body height 2022-02-16 14:05:00 157.5 cm [facility] Body weight 2022-02-16 14:05:00 103.874 kg [facility] BMI 2022-02-16 14:05:00 41.88 kg/m2 [facility] Procedures Procedure Date / Time Performed Performing Clinician Sourc e POCT HEMOGLOBIN A1C 2022-02-16 00:00:00 Jonah Henderson [facility] Encounters Start End Encounter Admission Attending Care Care Encounter Source Date/Time Date/Time Type Type Clinicians Facility Department ID 2022-02-16 2022-02-16 Office Santiago [facility] [id number] 09:15:00 09:30:10 Visit [facility] [id number] it y of Scotty DE LEÓN [id number] Emanuel as JOLLY?BLEA [id number] [address] [facility] 2021-07-10 2021-07-10 Outpatient Kautz_S [facility] [id number] [facility] 05:13:00 05:13:00 [facility] 2021-05-09 2021-05-09 Outpatient [facility] [id number] [facility] 11:00:00 11:00:00 [facility] 2021-05-07 2021-05-07 Outpatient [facility] DMG [id number] [facility] 12:00:00 12:00:00 [facility] 2021-02-25 2021-02-25 Telephone Gomez [facility] [id number] 00:00:00 00:00:00 Ricardo De León [id number] Belinda [id number] Professio [id number] [facility] Results Test Description Test Time Test Comments Results Result Comments Source POCT HEMOGLOBIN A1C TEST 2022-02-16 14:49:00 Test Item Value Reference Range Interpretation Comme nts POCT HBA1C (test code = 4548-4) 5[facility]2 [facility] [id number] 14:49:00 Test Item Value Reference Range Interpretation Comments POCT HBA1C (test code = 4548-4) 5.2 % 4-6 [facility]
[2022-02-16] MEDS ORDERED: ONDANSETRON 4 MG/2 ML VIAL ONE (15:58)
[2022-02-16] MEDS ORDERED: MORPHINE 4 MG/ML SYR ONE (15:58)
[2022-02-16] MEDS ORDERED: NA CHLORIDE 0.9% 1,000 ML ONE (15:59)
--- NOTE | 2022-02-16 16:27 | EDPHYS ---
Physician Documentation [facility] Name: Linda Rahman Age: 46 yrs Sex: Female : 1975 Arrival Date: 02/16/2022 Time: 15:24 Bed 10 Private MD: ED Physician Tommy Orellana HPI: 02/16 15:28 This 46 yrs old Female presents to ER via Unassigned with complaints of rn migraine, leg cramps. 15:28 Pt reports migraine, intermittent over last few months, no acute changes but not going rn away. No trauma. No fever. Also reports neuropathic/cramping pain in both legs. Reports pain in legs also chronic but worse over last few days. Otherwise, does not feel ill. No fever. No chills. . Onset: The symptoms/episode began/occurred at an unknown time. Severity of symptoms: At their worst the symptoms were moderate in the emergency department the symptoms are unchanged. The patient has not experienced similar symptoms in the past. The patient has not recently seen a physician. Historical: - Allergies: 15:29 Amoxicillin; jb4 15:29 Benadryl; jb4 15:29 Codeine; jb4 15:29 Demerol; jb4 15:29 Geodon; jb4 15:29 Meclizine; jb4 15:29 Tessalon Perles; jb4 - Home Meds: 15:29 albuterol sulfate 90 mcg/actuation Inhl aebs 1 puff every 6 hours [Active]; jb4 amitriptyline 50 mg Oral tab 2 tabs nightly [Active]; buspirone 15 mg Oral tab 2 tabs 2 times per day [Active]; biotin 1 mg Oral cap [Active]; citalopram 40 mg tab 1 tab once daily [Active]; clotrimazole 1 % Topical crea 2 times per day [Active]; diclofenac sodium 75 mg Oral chew 1 tab 2 times per day [Active]; cyanocobalamin (vitamin B-12) 1000 mcg/ml injection Oral drop [Active]; ferrous sulfate 325 mg (65 mg iron) Oral chew [Active]; Flovent 110 mcg/actuation Inhl aero 2 puffs 2 times per day [Active]; diltiazem HCl 120 mg Oral cp12 1 cap 2 times per day [Active]; econazole nitrate 1 % cream twice a day [Active]; cyclobenzaprine 5 mg Oral tab 1 tab 3 times per day [Active]; levothyroxine 50 mcg cap 1 cap once daily [Active]; ginkgo biloba 120 mg Oral tab [Active]; Myrbetriq 50 mg Oral Tb24 1 tab once daily [Active]; metformin 500 mg Oral cp24 1 tab 2 times per day [Active]; rosuvastatin 10 mg Oral cpSP 1 cap nightly [Active]; pregabalin 150 mg Oral cap 1 cap 3 times per day [Active]; omeprazole 20 mg Oral cpDR 1 cap once daily [Active]; ozempic 0.25 mg [Active]; promethazine 25 mg Oral tab 1 tab once daily [Active]; triamcinolone acetonide 0.025 % Topical lotn 3 times per day [Active]; losartan 50 mg Oral tab 1 tab 2 times per day [Active]; - PMHx: 15:29 Anemia; Hypertensive disorder; diabetes mellitus; Anxiety; Hypothyroidism; jb4 - Family history:: not pertinent. - Hospitalizations: : No recent hospitalization is reported. ROS: 15:28 Constitutional: Negative for fever, chills, and weight loss, Eyes: Negative for injury, rn pain, redness, and discharge, Neck: Negative for injury, pain, and swelling, Cardiovascular: Negative for chest pain, palpitations, and edema, Respiratory: Negative for shortness of breath, cough, wheezing, and pleuritic chest pain, Abdomen/GI: Negative for abdominal pain, nausea, vomiting, diarrhea, and constipation, Back: Negative for injury and pain, : Negative for injury, bleeding, discharge, and swelling, MS/Extremity: Negative for injury and deformity, Skin: Negative for injury, rash, and discoloration, Neuro: Negative for weakness, numbness, tingling, and seizure. Exam: 15:28 Constitutional: This is a well developed, well nourished patient who is awake, alert, rn and in no acute distress. Head/Face: Normocephalic, atraumatic. Eyes: Pupils equal round and reactive to light, extra-ocular motions intact. Periorbital areas with no swelling, redness, or edema. ENT: dry MM Neck: Trachea midline, no thyromegaly or masses palpated, and no cervical lymphadenopathy. Supple, full range of motion without nuchal rigidity, or vertebral point tenderness. No Meningismus. Cardiovascular: Tachycardic, regular. No pulse deficits. Respiratory: No increased work of breathing, no retractions or nasal flaring. Abdomen/GI: soft, non-tender Skin: Warm, dry with normal turgor. Normal color with no rashes, no lesions, and no evidence of cellulitis. MS/ Extremity: Pulses equal, no cyanosis. Neurovascular intact. Full, normal range of motion. Equal circumference. Neuro: Awake and alert, GCS 15, oriented to person, place, time, and situation. Cranial nerves II-XII grossly intact. Motor strength 5/5 in all extremities. Sensory grossly intact. Cerebellar exam normal. Vital Signs: 15:26 BP 124 / 75; Pulse 102; Resp 18; Temp 97.4(TE); Pulse Ox 98% on R/A; Weight 103.87 kg jb4 (R); Height 5 ft. 2 in. (157.48 cm); Pain 8/10; 16:55 BP 124 / 75; Pulse 100; Resp 16; Pulse Ox 96% on R/A; jb4 15:26 Body Mass Index 41.88 (103.87 kg, 157.48 cm) jb4 MDM: 15:26 Patient medically screened. rn 16:24 Differential Diagnosis neuropathy, chronic pain, migraine, dehydration, diabetes. Data rn reviewed: vital signs, nurses notes, lab test result(s), and as a result, I will discharge patient. Counseling: I had a detailed discussion with the patient and/or guardian regarding: the historical points, exam findings, and any diagnostic results supporting the discharge/admit diagnosis, lab results, the need for outpatient follow up, to return to the emergency department if symptoms worsen or persist or if there are any questions or concerns that arise at home. Response to treatment: the patient's symptoms have mildly improved after treatment, and as a result, I will discharge patient. Special discussion: I discussed with the patient/guardian in detail that at this point there is no indication for admission to the hospital. It is understood, however, that if the symptoms persist or worsen the patient needs to return immediately for re-evaluation. 02/16 16:04 Order name: Glucose, Ancillary Testing; Complete Time: 16:05 EDOH 02/16 15:27 Order name: IV Start; Complete Time: 16:05 rn 02/16 15:32 Order name: Glucose Level; Complete Time: 16:05 rn Administered Medications: 16:00 Drug: Zofran (Ondansetron) 4 mg Route: IVP; Site: right antecubital; jb4 16:45 Follow up: Response: No adverse reaction; Marked relief of symptoms jb4 16:00 Drug: NS 0.9% 1000 ml Route: IV; Rate: 1000 ml; Site: right antecubital; jb4 16:45 Follow up: IV Status: Completed infusion jb4 16:02 Drug: morphine 4 mg Route: IVP; Site: right antecubital; jb4 16:45 Follow up: Response: No adverse reaction; Marked relief of symptoms jb4 Disposition Summary: 02/16/22 16:26 Discharge Ordered Location: Home rn Problem: chronic rn Symptoms: have improved rn Condition: Stable rn Diagnosis - Migraine, unspecified, not intractable, without status migrainosus rn - Chronic pain, not elsewhere classified rn - Muscle spasm rn Followup: rn - With: Private Physician - When: As needed - Reason: Recheck today's complaints, Re-evaluation by your physician Discharge Instructions: - Discharge Summary Sheet rn - Chronic Pain, Adult rn - Migraine Headache rn Forms: - Medication Reconciliation Form rn - Thank You Letter rn - Antibiotic e learning designer - Prescription Opioid Use rn Signatures: Tommy Orellana MD MD rn Bryson, James, RN RN jb4
--- NOTE | 2022-02-16 16:27 | ER ---
Nurse's Notes [facility] Name: Linda Rahman Age: 46 yrs Sex: Female : 1975 Arrival Date: 02/16/2022 Time: 15:24 Bed 10 Private MD: Diagnosis: Migraine, unspecified, not intractable, without status migrainosus;Chronic pain, not elsewhere classified;Muscle spasm Presentation: 02/16 15:26 Chief complaint: EMS states: Pt reports increased difficulty walking due to her pain jb4 from neuropathy. Coronavirus screen: At this time, the client does not indicate any symptoms associated with coronavirus-19. Ebola Screen: No symptoms or risks identified at this time. Initial Sepsis Screen: Does the patient meet any 2 criteria? HR > 90 bpm. Yes Does the patient have a suspected source of infection? No. Patient's initial sepsis screen is negative. Risk Assessment: Do you want to hurt yourself or someone else? Patient reports no desire to harm self or others. Onset of symptoms was February 16, 2022. Transition of care: patient was not received from another setting of care. 15:26 Method Of Arrival: EMS: [facility] jb4 15:26 Acuity: HOLLEY 4 jb4 Historical: - Allergies: 15:29 Amoxicillin; jb4 15:29 Benadryl; jb4 15:29 Codeine; jb4 15:29 Demerol; jb4 15:29 Geodon; jb4 15:29 Meclizine; jb4 15:29 Tessalon Perles; jb4 - Home Meds: 15:29 albuterol sulfate 90 mcg/actuation Inhl aebs 1 puff every 6 hours [Active]; jb4 amitriptyline 50 mg Oral tab 2 tabs nightly [Active]; buspirone 15 mg Oral tab 2 tabs 2 times per day [Active]; biotin 1 mg Oral cap [Active]; citalopram 40 mg tab 1 tab once daily [Active]; clotrimazole 1 % Topical crea 2 times per day [Active]; diclofenac sodium 75 mg Oral chew 1 tab 2 times per day [Active]; cyanocobalamin (vitamin B-12) 1000 mcg/ml injection Oral drop [Active]; ferrous sulfate 325 mg (65 mg iron) Oral chew [Active]; Flovent 110 mcg/actuation Inhl aero 2 puffs 2 times per day [Active]; diltiazem HCl 120 mg Oral cp12 1 cap 2 times per day [Active]; econazole nitrate 1 % cream twice a day [Active]; cyclobenzaprine 5 mg Oral tab 1 tab 3 times per day [Active]; levothyroxine 50 mcg cap 1 cap once daily [Active]; ginkgo biloba 120 mg Oral tab [Active]; Myrbetriq 50 mg Oral Tb24 1 tab once daily [Active]; metformin 500 mg Oral cp24 1 tab 2 times per day [Active]; rosuvastatin 10 mg Oral cpSP 1 cap nightly [Active]; pregabalin 150 mg Oral cap 1 cap 3 times per day [Active]; omeprazole 20 mg Oral cpDR 1 cap once daily [Active]; ozempic 0.25 mg [Active]; promethazine 25 mg Oral tab 1 tab once daily [Active]; triamcinolone acetonide 0.025 % Topical lotn 3 times per day [Active]; losartan 50 mg Oral tab 1 tab 2 times per day [Active]; - PMHx: 15:29 Anemia; Hypertensive disorder; diabetes mellitus; Anxiety; Hypothyroidism; jb4 - Family history:: not pertinent. - Hospitalizations: : No recent hospitalization is reported. Screenin:00 Abuse screen: Denies threats or abuse. Nutritional screening: No deficits noted. jb4 Tuberculosis screening: No symptoms or risk factors identified. Fall Risk None identified. Assessment: 16:00 Reassessment: Pt denies allergy to morphine. jb4 16:00 General: Appears in no apparent distress. uncomfortable, Behavior is calm, cooperative, jb4 appropriate for age. Pain: Complains of pain in right leg and left leg Pain does not radiate. Pain currently is 7 out of 10 on a pain scale. Neuro: Level of Consciousness is awake, alert, obeys commands, Oriented to person, place, time, situation. Cardiovascular: Patient's skin is warm and dry. Respiratory: Airway is patent Respiratory effort is even, unlabored, Respiratory pattern is regular, symmetrical. GI: No signs and/or symptoms were reported involving the gastrointestinal system. : No signs and/or symptoms were reported regarding the genitourinary system. EENT: No signs and/or symptoms were reported regarding the EENT system. Derm: Skin is intact, Skin is pink, warm \T\ dry. Musculoskeletal: Circulation, motion, and sensation intact. Range of motion: intact in all extremities. Vital Signs: 15:26 BP 124 / 75; Pulse 102; Resp 18; Temp 97.4(TE); Pulse Ox 98% on R/A; Weight 103.87 kg jb4 (R); Height 5 ft. 2 in. (157.48 cm); Pain 8/10; 16:55 BP 124 / 75; Pulse 100; Resp 16; Pulse Ox 96% on R/A; jb4 15:26 Body Mass Index 41.88 (103.87 kg, 157.48 cm) jb4 ED Course: 15:24 Patient arrived in ED. jb4 15:25 Ed Barroso NP is PHCP. pm1 15:25 Tommy Orellana MD is Attending Physician. pm1 15:26 Jonah Akbar RN is Primary Nurse. jb4 15:29 Triage completed. jb4 16:00 Patient has correct armband on for positive identification. Bed in low position. Call jb4 light in reach. Side rails up X 1. Client placed on continuous cardiac and pulse oximetry monitoring. NIBP monitoring applied. 16:00 No provider procedures requiring assistance completed. Patient did not have IV access jb4 during this emergency room visit. Administered Medications: 16:00 Drug: Zofran (Ondansetron) 4 mg Route: IVP; Site: right antecubital; jb4 16:45 Follow up: Response: No adverse reaction; Marked relief of symptoms jb4 16:00 Drug: NS 0.9% 1000 ml Route: IV; Rate: 1000 ml; Site: right antecubital; jb4 16:45 Follow up: IV Status: Completed infusion jb4 16:02 Drug: morphine 4 mg Route: IVP; Site: right antecubital; jb4 16:45 Follow up: Response: No adverse reaction; Marked relief of symptoms jb4 Medication: 16:00 VIS not applicable for this client. jb4 Outcome: 16:26 Discharge ordered by . rn 16:56 Discharged to home ambulatory, with family. jb4 16:56 Condition: stable 16:56 Discharge instructions given to patient, Instructed on discharge instructions, follow up and referral plans. Demonstrated understanding of instructions, follow-up care. 16:57 Patient left the ED. jb4 Signatures: Tommy Orellana MD MD rn Marinas, Patrick, LAST COMPRESS ENGINEER pm1 Jonah Akbar RN RN jb4 Corrections: (The following items were deleted from the chart) 15:40 15:26 Pulse 102bpm; Resp 18bpm; Pulse Ox 98% RA; Temp 97.4F Temporal; 103.87 kg jb4 Reported; Height 5 ft. 2 in.; BMI: 41.8; Pain 8/10; jb4
[2022-02-16 17:08] VITALS: BP 124/75; TEMP 97.4; O2SAT 98
== END 2022-02-16 16:57 | disposition home or self-care (01) ==
LOC: ER 15:21
DX: G43.009 Migraine without aura, not intractable, without status migrainosus (principal); G89.29 Other chronic pain; M62.838 Other muscle spasm; E11.9 Type 2 diabetes mellitus without complications; I10 Essential (primary) hypertension; E03.9 Hypothyroidism, unspecified; F41.9 Anxiety disorder, unspecified; Z88.1 Allergy status to other antibiotic agents; Z88.5 Allergy status to narcotic agent; Z88.8 Allergy status to other drugs, medicaments and biological substances
CPT/HCPCS: 96361; 82947; 96375; 96374; 99283; J7030; J2405

== ENCOUNTER 2022-02-22 22:54 | Emergency (ER) | payer OTHER ==
--- OUTSIDE RECORDS SUMMARY | 2022-02-22 22:59 | XMS REPORT | Continuity of Care Document ---
:1975 Author Organization [facility] t Address [address] [place] [address] Care Team Providers Name Role Phone Scotty Henderson MD Primary Care Physician Scotty Henderson MD Attending Clinician Jessica_Barry Attending Clinician Unavailable Gomez HOLLINS, K.H. Attending Clinician Eladia Admitting Clinician Unavailable Payers Payer Name Policy Type Policy Number Effective Date Expiration Date S [facility] HR8 2021 (MEDICARE 00:00:00 REPLACEMENT HMO) Problems [...] Added automatic ally from request for surgery [id number] Chronic Chronic Disease Active Overview: Univ ers superficia superficia -05 Formattin ity of l l 00:00: g of this [place] gastritis gastritis 00 note Medi cipriano without without might be Branch bleeding bleeding different from the original. Added automatic ally from request for surgery [id number] Hyperplast Hyperplast Disease Active Overview : Univers ic polyps ic polyps 4-05 Formattin i ty of of stomach of stomach 00:00: g of this 00 note Medical might be Branch different from the original. Added automatic ally from request for surgery [id number] Indigestio Indigestio Disease Active 2020-09 Overview : Univers n n 2-15 Formattin ity of 00:00: g of this note Medical might be Branch different from the original. Added automatic ally from request for surgery [id number] Bloating Bloating Disease Active 2020-09 Overview: Un jerrod 2-15 Formattin ity of 00:00: g of this note Medical might be Branch different from the original. Added automatic ally from request for surgery [id number] Dental Dental Disease Active Univers caries caries [...] depressive [place] disorder[place] disorder, 00 [facility] in in Branch remission remission Hypothyroi Hypothyroi Disease Active U nivers d d 2-05 ity of 00:00: Medical Branch Essential Essential Disease Active Uni vers hypertensi hypertensi 2-05 it y of on, benign on, benign 00:00: [place] Well woman Well woman Disease Active U nivers exam exam 2-05 ity of 00:00: Medical Branch Chest pain Chest pain Disease Active U nivers 9-13 ity of 00:00: Medical [place] 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 ity of [facility] PCOS PCOS Disease Active Univers (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) [facility] Branch Peripheral Peripheral Disease Active U nivers neuropathy neuropathy it y of [facility] Allergies, Adverse Reactions, Alerts Allergy Allergy Status Severity Reaction(s) Onset Inactive Treating Comm ents Source Name Type Date Date Clinician Milk Propensi Active Other - See sneeze Uni vers ty to comments 8-14 ity of adverse 00:00: [place] reaction Medical s Branch Tomato Propensi Active Other - See [...] Source Exposure to 2022-02-05 2022-02-15 Not sure [facility] SARS-CoV-2 (event) 00:00:00 09:14:00 Medica l Branch Alcohol intake 2022-02-08 2022-02-08 0 /d [facility] 00:00:00 00:00:00 Medical Branch Cigarettes smoked 2015-05-31 2015-05-31 [facility] current (pack per 00:00:00 00:00:00 Medical Branch day) - Reported Cigarette 2015-05-31 2015-05-31 [facility] pack-years 00:00:00 00:00:00 Medical Branch Tobacco use and 2015-05-31 2015-05-31 Never used [facility] exposure 00:00:00 00:00:00 Medical Branch History of tobacco 1982-10-20 2007-10-[address] [facility] use 00:00:00 00:00:00 Medical Branch Sex [birth year] [facility] 00:00:00 00:00:00 Medical Branch Smoking Status Start Date Stop Date Source Former smoker 2015-05-31 00:00:00 2015-05-31 00:00:00 [facility] Medical Branch Medications Ordered Filled Start Stop Current Ordering Indication Dosage Frequency Signature Comments Components Source Medication Medication Date Date Medication? Clinician (SIG) Name Name ibuprofen Yes [id number] 600mg Take 1 Univers 600 mg 5-19 [id number] tablet by ity of tablet 00:00: mouth [place] 00 every 6 Medical (six) Branch hours as needed for Pain (scale 4-6). SUMAtriptan Yes [id number] 50mg Take 1 Univers 50 mg 5-16 tablet by ity of tablet 00:00: mouth as [place] 00 needed for Medical Migraine. Branch topiramate Yes [id number] 50mg Take 2 Univers 25 mg 5-16 tablets by ity of tablet 00:00: mouth 2 [place] 00 (two) Medical times Branch daily. pregabalin Yes [id number] 150mg Take 1 Univers 150 mg 4-29 capsule by ity of capsule 00:00: mouth 3 [place] 00 (three) Medical times Branch daily. busPIRone Yes [id number] 20mg Take 2 Un jerrod 10 mg 4-29 tablets by ity of tablet 00:00: mouth 2 [place] 00 (two) Medical times Branch daily. citalopram Yes [id number] 40mg Take 1 U nivers 40 mg 4-29 tablet by ity of tablet 00:00: mouth [place] 00 daily. Medical Branch pantoprazol Yes [id number] 40mg Take 1 Univers e 40 mg EC 4-04 tablet by ity of tablet 00:00: mouth [place] 00 daily. Medical Branch FOLIC ACID Yes Take by Uni vers ORAL 3-18 mouth ity of 14:37: daily. [place] [address] Medical Branch MULTIVIT Yes Take by [facility] rs &MINERALS/F 3-18 mouth. ity of ERROUS FUM 14:37: [place] (MULTI 08 Medical VITAMIN Branch ORAL) METHYLCELLU Yes [facility] s LOSE (FIBER 3-18 ity of THERAPY 14:37: [place] MISC) Medical Branch DOCUSATE Yes Take by [facility] rs SODIUM 3-18 mouth. ity of (COLACE 14:37: [place] ORAL) 08 Medical Branch vitamin C Yes 1000mg Take 1,000 Univers with derrell 3-18 mg by ity of hips 14:37: mouth [place] (VITAMIN C) 08 daily. Medica l 1,000 mg Branch tablet cholecalcif Yes 1000U Take 1,000 Univers edmar, 3-18 Units by ity of vitamin D3, 14:37: mouth [place] (VITAMIN 08 daily. Medical D3) 1,000 Branch unit tablet CRANBERRY Yes Take by [facility] ers FRUIT 3-18 mouth ity of EXTRACT 14:37: daily. [place] (CRANBERRY 08 Medical ORAL) Branch CALCIUM Yes Take by Univer s ORAL 3-18 mouth ity of 14:37: daily. [place] [address] Medical Branch DOCOSAHEXAN Yes 1000mg Take 1,000 Univers OIC 3-18 mg by ity of ACID/EPA 14:37: mouth [place] (FISH OIL 08 daily. Medical ORAL) Branch BIOTIN ORAL Yes Take by Un jerrod 3-18 mouth. ity of 14:37: [place] [address] Medical Branch Blood-Gluco Yes [id number] Use twice Univers se Meter 3-08 a day for ity of (ONETOUCH 00:00: ICD CODE [place] VERIO FLEX 00 E11.65 Medical START) Kit Branch mirabegron Yes [id number] 50mg Take 1 Univers (MYRBETRIQ) 1-18 tablet by ity of 50 mg 00:00: mouth [place] tablet 00 daily. Medical Branch semaglutide 2020-09 Yes [id number] Inject Univers (OZEMPIC) 2-01 0.25 mg ity of 0.25 mg or 00:00: under the [place] 0.5 mg(2 00 skin Medical mg/1.5 mL) weekly. Branch PnIj metformin 2020-09 Yes [id number] 500mg Take 1 U nivers ER 500 mg 2-01 tablet by ity o f 24 hr 00:00: mouth [place] tablet 00 daily with Medical breakfast. Branch STOP REGULAR METFORMIN. rosuvastati 2020-09 Yes [id number] 10mg Take 1 Univers n 10 mg 1-09 tablet by ity of tablet 00:00: mouth at [place] 00 bedtime. Medical Branch cyanocobala 2020-09 Yes [id number] 1000ug 1 mL by Univers min 1,000 1-09 Intramuscu ity of mcg/mL 00:00: lar route [place] injection 00 every 2 Medical (two) Branch weeks. levothyroxi 2020-09 Yes [id number] 50ug Take 1 Univers ne 50 mcg 1-09 tablet by ity o f tablet 00:00: mouth [place] 00 every Medical morning. Branch fluticasone 2020-09 Yes [id number] 2{puff} Inhale 2 Univers propionate 1-09 Puffs ity of (FLOVENT 00:00: every 12 [place] HFA) 110 00 (twelve) Medical mcg/actuati hours. Branch on inhaler Rinse mouth after each use. levalbutero 2020-09 Yes [id number] .63mg Inhale Univers l 0.63 mg/3 1-09 0.63 mg 3 ity of mL 00:00: (three) [place] nebulizer 00 times Medical solution daily as Branch needed for Wheezing or Shortness of Breath. losartan 50 2020-09 Yes [id number] 50mg Take 1 Univers mg tablet 1-09 tablet by ity o f 00:00: mouth 2 [place] 00 (two) Medical times Branch daily. clotrimazol 2020-09 Yes [id number] Apply to Univers e-betametha -09 area(s) 2 ity of sone cream 00:00: (two) [place] 00 times Medical daily. Branch cyclobenzap 2020-09 Yes [id number] TAKE 1 Univers rine 5 mg 1-09 TABLET BY ity o f tablet 00:00: MOUTH [place] 00 EVERY 8 Medical HOURS Branch NEEDED econazole 2020-09 Yes [id number] Apply to Univers nitrate 1 % 09 area(s) 2 ity of cream 00:00: (two) [place] 00 times Medical daily. Branch albuterol 2020-09 Yes [id number] 2{puff} Inhale 2 Univers (PROAIR 1-09 Puffs ity of HFA) 90 00:00: every 6 [place] mcg/actuati 00 (six) Medical on inhaler hours as Branc h needed for Wheezing or Shortness of Breath. triamcinolo 2020-09 Yes [id number] Apply to Univers ne 0.025 % -09 area(s) 3 ity of ointment 00:00: (three) [place] 00 times Medical daily. For Branch itching diltiazem 2020-09 Yes [id number] 120mg Take 1 U nivers (CARTIA XT) -09 capsule by it y of 120 mg 24 00:00: mouth 2 [place] hr capsule 00 (two) Medical times Branch daily. proMETHazin 2019-09 Yes TAKE 1 Univ ers e 25 mg 0-22 TABLET BY ity of tablet 00:00: MOUTH 00 EVERY 6 Medical HOURS Branch NEEDED FOR NAUSEA Ginkgo Yes Univers Bil[place] 120 1-16 ity of mg Tab 00:00: [place] 00 Medical Branch FERROUS Yes [id number] TAKE ONE Uni vers SULFATE 325 8-13 TABLET BY ity of mg (65 mg 00:00: MOUTH [place] iron) 00 THREE Medical tablet TIMES Branch DAILY WITH MEALS coQ10, Yes [id number] 1{capsu Take 1 U nivers ubiquinol, 1-16 le} capsule by ity of 100 mg Cap 00:00: mouth [place] 00 daily. Medical Branch loratadine Yes [id number] 10mg Take 1 Univers 10 mg 1-23 tablet by ity of tablet 00:00: mouth [place] 00 daily. [facility] Immunizations Ordered Immunization Filled Immunization Date Status Commen ts Source Name Name Jeromerix (hep a/hep b) 2022-01-14 Completed Uni versity of 00:00:00 [facility] SARS-COV-2 COVID-19 2021-07-23 Completed Unive rsity of PFIZER VACCINE 00:00:00 [facility] Influenza Virus 2021-05-27 Completed Universit y of Vaccine (3+ yrs) 00:00:00 [facility] [place] [facility] SARS-COV-2 COVID-19 2020-12-13 Completed Unive rsity of PFIZER VACCINE 00:00:00 [facility] SARS-COV-2 COVID-19 2020-11-22 Completed Unive rsity of PFIZER VACCINE 00:00:00 [facility] Influenza Virus 2020-05-27 Completed Universit y of Vaccine Recomb Quad 00:00:00 [facility] IM, Preserv and ABX Branc h Free 18-64 YRS Pneumococcal 2019-08-10 Completed University o f Polysaccharide, 00:00:00 [facility] PPSV23 (PNEUMOVAX) [place] TDAP (ADACEL) VACCINE 2019-08-10 Completed Uni versity of 00:00:00 [facility] TDAP 2019-08-10 Completed University of 00:00:00 [facility] Influenza Virus 2019-07-04 Completed Universit y of Vaccine 00:00:00 [facility] Influenza Virus 2019-07-04 Completed Universit y of Vaccine Recomb Quad 00:00:00 [facility] IM, Preserv and ABX Branc h Free 18-64 YRS Influenza Virus 2018-06-30 Completed Universit y of Vaccine Quad IM 3+ 00:00:00 [facility] YRS Branch Influenza Virus 2017-06-15 Completed Universit y of Vaccine Quad ID [id number] 00:00:00 [facility] as Medical YRS Branch Influenza Virus 2016-08-05 Completed Universit y of Vaccine Quad IM 00:00:00 [facility] ical Multi-dose 6+ MO Branch Pneumococcal 13 2016-03-07 Completed Universit y of Conjugate, PCV13 00:00:00 [facility] dical (Prevnar 13) Branch Meningococcal B, OMV 2016-03-07 Completed Univ ersity of 00:00:00 [facility] Heamophilus Influenza 2015-11-13 Completed Uni versity of B 00:00:00 [facility] Meningococcal 2015-11-12 Completed University of Polysaccharide 00:00:00 [place] Medi cipriano (groups A, C, Y and Branc h W-135) conjugate vaccine (MCV4P) TDAP 2015-10-31 Completed University of 00:00:00 [facility] Pneumococcal 2014-04-01 Completed University o f Polysaccharide, 00:00:00 [facility] PPSV23 (PNEUMOVAX) Branch Procedures This patient has no known procedures. Encounters Start End Encounter Admission Attending Care Care Encounter Source Date/Time Date/Time Type Type Clinicians Facility Department ID 2022-02-18 2022-02-18 Patient Santiago [facility] [id number] 00:00:00 00:00:00 Secure [id number] [facility] Scotty DE LEÓN [id number] [place] as JOLLY?BLEA [id number] N[place] dical EY 044 [place] [facility] 2021-07-10 2021-07-10 Outpatient Kautz_S [facility] [id number] Devoted 05:13:00 05:13:00 1015 Medica l Group 2021-05-09 2021-05-09 Outpatient [facility] [id number] [facility] 11:00:00 11:00:00 0814 Medica l Group 2021-05-07 2021-05-07 [place] [id number] [facility] 12:00:00 12:00:00 0812 Medica l Group 2021-02-25 2021-02-25 Telephone Gomez [facility] [id number] 00:00:00 00:00:00 Ricardo De León [id number] [place] [id number] Professio [phone] [facility]9 Building Results This patient has no known results.
[2022-02-22] MEDS ORDERED: ACETAMINOPHEN 500 MG TAB ONE (23:33)
[2022-02-22] MEDS ORDERED: NA CHLORIDE 0.9% 1,000 ML ONE (23:33)
[2022-02-22 23:51] LABS: Absolute Lymphocytes (CBC) 0.5 K/uL (0.7-4.9); Hematocrit 35.5 % (36.0-45.0); Lymphocytes % 2.9 % (15.3-44.8); MPV 9.6 fL (7.6-11.3); RBC Red Blood Cell Count 3.87 M/uL (3.86-4.86)
[2022-02-23] LABS: Protime INR 1.01
[2022-02-23 00:12] LABS: Albumin 3.6 g/dL (3.4-5.0); Bilirubin Direct 0.4 mg/dL (0-0.2); Bilirubin Total 1.3 mg/dL (0.2-1.0); Magnesium 1.8 mg/dL (1.8-2.4); Potassium 3.2 mmol/L (3.5-5.1); Protein, Total 7.2 g/dL (6.4-8.2)
[2022-02-23 01:23] LABS: Urine Blood 1+ (Negative); Urine Glucose Negative (Negative); Urine Protein 1+ (Negative); Urine Specific Gravity 1.015 (1.005-1.030)
[2022-02-23 01:51] LABS: Urine Specific Gravity/Preg 1.015 (1.005-1.030)
[2022-02-23] MEDS ORDERED: POTASSIUM 25 MEQ EFFERV TAB ONE (02:51)
[2022-02-23] MEDS ORDERED: Levofloxacin500mg IV 500 MG/100 ML BAG IV ONE (02:51)
[2022-02-23 03:41] LABS: Urine Bacteria LOADED /HPF (<20); Urine Mucus 2+ /HPF (NONE SEEN); Urine RBC <5 /HPF (NONE SEEN)
--- NOTE | 2022-02-23 05:39 | ER ---
Nurse's Notes [facility] [place] Name: Linda Rahman Age: 46 yrs Sex: Female : 1975 Arrival Date: 02/22/2022 Time: 22:57 Bed 19 Private MD: Diagnosis: Palpitations;UTI/ Urinary tract infection, site not specified Presentation: 02/22 22:44 Chief complaint: EMS states: Patient report headache, fever, chills. Coronavirus ag7 screen: Client denies travel out of the [place] in the last 14 days. At this time, the client does not indicate any symptoms associated with coronavirus-19. Ebola Screen: Patient negative for fever greater than or equal to 101.5 degrees Fahrenheit, and additional compatible Ebola Virus Disease symptoms Patient denies exposure to infectious person. Patient denies travel to an Ebola-affected area in the 21 days before illness onset. Initial Sepsis Screen: Does the patient meet any 2 criteria? HR > 90 bpm. Does the patient have a suspected source of infection? No. Patient's initial sepsis screen is negative. Risk Assessment: Do you want to hurt yourself or someone else? Patient reports no desire to harm self or others. Onset of symptoms was February 22, 2022. 22:44 Method Of Arrival: EMS: [facility] 22:44 Acuity: [place] 2 ag7 Triage Assessment: 23:00 General: Behavior is calm, cooperative, appropriate for age. ag7 02/23 02:09 General: Appears. 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 N/A - Post-menopause ag7 Historical: - Allergies: 02:04 Amoxicillin; ag7 02:04 Benadryl; ag7 02:04 Codeine; ag7 02:04 Demerol; ag7 02:04 Geodon; ag7 02:04 Meclizine; ag7 02:04 Tessalon Perles; ag7 - Home Meds: 02:04 albuterol sulfate 90 mcg/actuation Inhl aebs 1 puff every 6 hours [Active]; ag7 amitriptyline 50 mg Oral tab 2 tabs nightly [Active]; buspirone 15 mg Oral tab 2 tabs 2 times per day [Active]; ferrous sulfate 325 mg (65 mg iron) Oral chew [Active]; cyclobenzaprine 5 mg Oral tab 1 tab 3 times per day [Active]; levothyroxine 50 mcg cap 1 cap once daily [Active]; cyanocobalamin (vitamin B-12) 1000 mcg/ml injection Oral drop [Active]; - PMHx: 02:04 Anemia; Anxiety; diabetes mellitus; Hypertensive disorder; Hypothyroidism; ag7 - PSHx: 02:04 Cholecystectomy; Ligation of fallopian tube; ag7 - Immunization history:: Adult Immunizations up to date, Client reports receiving the 2nd dose of the Covid vaccine, Flu vaccine is not up to date. It has been more than one year since last vaccine. - Social history:: Smoking status: Patient denies any tobacco usage or history of. Screenin:09 Abuse screen: Denies threats or abuse. Nutritional screening: No deficits noted. ag7 Tuberculosis screening: No symptoms or risk factors identified. Fall Risk No fall in past 12 months (0 pts). No secondary diagnosis (0 pts). IV access (20 points). Ambulatory Aid- None/Bed Rest/Nurse Assist (0 pts). Gait- Normal/Bed Rest/Wheelchair (0 pts) Mental Status- Oriented to own ability (0 pts). Total Butt Fall Scale indicates No Risk (0-24 pts). Assessment: 02/22 23:00 General: Appears in no apparent distress. Behavior is calm, cooperative, appropriate ag7 for age. Pain: Complains of pain in head Pain does not radiate. Pain currently is 5 out of 10 on a pain scale. Quality of pain is described as aching, Pain began suddenly, Is continuous, Alleviated by nothing. Neuro: Level of Consciousness is awake, alert, obeys commands, Oriented to Appropriate for age Tongue Presser are equal bilaterally. Cardiovascular: Heart tones S1 S2 present Capillary refill < 3 seconds in bilateral fingers Patient's skin is warm and dry. diaphoretic. Respiratory: Airway is patent Trachea midline Respiratory effort is even, unlabored, Respiratory pattern is regular, symmetrical, Breath sounds are clear bilaterally. 02/23 00:00 Reassessment: Patient and/or family updated on plan of care and expected duration. Pain ag7 level reassessed. Patient is alert, oriented x 3, equal unlabored respirations, skin warm/dry/pink. Patient denies pain at this time. Patient states feeling better. 01:00 Reassessment: No changes from previously documented assessment. ag7 02:00 Reassessment: Patient and/or family updated on plan of care and expected duration. Pain ag7 level reassessed. Patient is alert, oriented x 3, equal unlabored respirations, skin warm/dry/pink. Patient denies pain at this time. Patient states symptoms have improved. 03:00 Reassessment: Patient and/or family updated on plan of care and expected duration. Pain ag7 level reassessed. Patient is alert, oriented x 3, equal unlabored respirations, skin warm/dry/pink. Patient states feeling better. Patient states symptoms have improved. 04:00 Reassessment: Patient and/or family updated on plan of care and expected duration. Pain ag7 level reassessed. Patient is alert, oriented x 3, equal unlabored respirations, skin warm/dry/pink. Patient denies pain at this time. 05:42 Reassessment: Patient and/or family updated on plan of care and expected duration. Pain ag7 level reassessed. Patient is alert, oriented x 3, equal unlabored respirations, skin warm/dry/pink. Patient denies pain at this time. Patient states feeling better. Patient states symptoms have improved. Vital Signs: 02/22 22:44 BP 112 / 71; Pulse 150; Resp 19; Temp 99.0(O); Pulse Ox 95% on R/A; Weight 103.87 kg; ag7 Height 5 ft. 2 in. (157.48 cm) (R); Pain 5/10; 22:47 BP 112 / 71; Pulse 150; Resp 22 S; Pulse Ox 97% ; ag7 23:01 BP 141 / 100; Pulse 147; Resp 22; Pulse Ox 97% ; Pain 5/10; ag7 23:30 BP 127 / 73; Pulse 135; Resp 15 S; Pulse Ox 96% on R/A; Pain 5/10; ag7 02/23 00:00 BP 116 / 68; Pulse 123; Resp 16 S; Pulse Ox 97% on R/A; Pain 5/10; ag7 00:30 BP 111 / 58; Pulse 114; Resp 16 S; Pulse Ox 96% on R/A; Pain 0/10; ag7 01:00 BP 121 / 90; Pulse 95; Resp 16 S; Pulse Ox 98% on R/A; Pain 0/10; ag7 02:00 BP 100 / 75; Pulse 101; Resp 20 S; Pulse Ox 93% on R/A; Pain 0/10; ag7 02:30 BP 105 / 69; Pulse 93; Resp 25 S; Pulse Ox 91% on R/A; Pain 0/10; ag7 03:30 BP 113 / 53; Pulse 97; Resp 22 S; Pulse Ox 100% on R/A; Pain 0/10; ag7 04:41 BP 93 / 58; Pulse 94; Pulse Ox 100% on R/A; ag7 05:00 BP 98 / 66; Pulse 94; Resp 20 S; Pulse Ox 99% on R/A; Pain 0/10; ag7 02/22 22:44 Body Mass Index 41.88 (103.87 kg, 157.48 cm) ag7 ED Course: 02/22 22:57 Patient arrived in ED. mw2 23:00 Patient has correct armband on for positive identification. Bed in low position. Call ag7 light in reach. Side rails up X 1. 23:10 Burt Gee MD is Attending Physician. 7 23:14 Charlene Reece, ABDULLAHI is Primary Nurse. ag7 23:15 Inserted saline lock: 22 gauge in left hand, using aseptic technique. Blood collected. lp1 23:49 XRAY Chest (1 view) In Process Unspecified. EDMS 02/23 00:07 Triage completed. ag7 00:14 Notified ED physician of a critical lab result(s). Lactate 2.4. lp1 00:24 Strep Sent. ag7 00:24 Flu Sent. ag7 00:24 COVID-19 SARS RT PCR (Document "Date of Onset" if Symptomatic) Sent. ag7 00:25 Inserted saline lock: 20 gauge in right antecubital area, using aseptic technique. ag7 00:40 Blood Culture Adult (2) Sent. ag7 02:09 No provider procedures requiring assistance completed. ag7 02:09 Arm band placed on. ag7 06:01 IV discontinued, intact, bleeding controlled, No redness/swelling at site. Pressure ag7 dressing applied, to right AC and left hand. Administered Medications: 02/22 23:30 Drug: NS 0.9% 1000 ml Route: IV; Rate: 1000 ml; Site: left hand; lp1 02/23 01:00 Follow up: IV Status: Completed infusion; IV Intake: 1000ml ag7 02/22 23:30 Drug: Tylenol 1000 mg Route: PO; lp1 02/23 00:00 Follow up: Response: No adverse reaction ag7 02:55 Drug: LevaQUIN (levofloxacin) 500 mg Volume: 100 ml; Route: IVPB; Infused Over: 60 ag7 mins; Site: right antecubital; 02:55 Drug: Potassium Effervescent Tablet 50 mEq Route: PO; ag7 03:30 Follow up: Response: No adverse reaction ag7 Medication: 02:10 VIS not applicable for this client. ag7 Intake: 01:00 IV: 1000ml; Total: 1000ml. ag7 Outcome: 05:38 Discharge ordered by . Corine 06:01 Discharged to home ambulatory. ag7 06:01 Condition: stable 06:01 Discharge instructions given to patient, Instructed on discharge instructions, follow up and referral plans. medication usage, Demonstrated understanding of instructions, follow-up care, medications, Prescriptions given X 1. 06:03 Patient left the ED. ag7 Signatures: Dispatcher [employer] EDMS Kath Parson RN RN lp1 Orion Alvarez mw2 Burt Gee MD MD 7 Charlene Reece RN RN 7 Corrections: (The following items were deleted from the chart) 02:58 02/22 23:01 BP 141 / 100; Pulse 147bpm; Resp 22bpm; Pulse Ox 97%; Pain 0/10; ag7 ag7
--- NOTE | 2022-02-23 05:39 | EDPHYS ---
Physician Documentation [facility] Name: Linda Rahman Age: 46 yrs Sex: Female : 1975 Arrival Date: 02/22/2022 Time: 22:57 Bed 19 Private MD: ED Physician Burt Gee HPI: 02/22 22:50 This 46 yrs old Female presents to ER via EMS with complaints of Rapid Heart mh7 Beat. Chills. 22:50 The patient presents with a history of heart racing. Context: The symptoms occur at mh7 rest. Onset: The symptoms/episode began/occurred yesterday. Duration: The patient or guardian reports multiple episodes, that are intermittent, that wax and wane, with no pattern. Modifying factors: The symptoms are aggravated by nothing. The symptoms are alleviated by nothing. Associated signs and symptoms: Pertinent positives: cough, chills, Pertinent negatives: anxiety, chest pain, lightheadedness, nausea, SOB, syncope, near-syncope, unusual stressors, vertigo, vomiting. Severity of symptoms: At their worst the symptoms were moderate last night, in the emergency department the symptoms are unchanged. 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 ag7 Historical: - Allergies: 02:04 Amoxicillin; ag7 02:04 Benadryl; ag7 02:04 Codeine; ag7 02:04 Demerol; ag7 02:04 Geodon; ag7 02:04 Meclizine; ag7 02:04 Tessalon Perles; ag7 - Home Meds: 02:04 albuterol sulfate 90 mcg/actuation Inhl aebs 1 puff every 6 hours [Active]; ag7 amitriptyline 50 mg Oral tab 2 tabs nightly [Active]; buspirone 15 mg Oral tab 2 tabs 2 times per day [Active]; ferrous sulfate 325 mg (65 mg iron) Oral chew [Active]; cyclobenzaprine 5 mg Oral tab 1 tab 3 times per day [Active]; levothyroxine 50 mcg cap 1 cap once daily [Active]; cyanocobalamin (vitamin B-12) 1000 mcg/ml injection Oral drop [Active]; - PMHx: 02:04 Anemia; Anxiety; diabetes mellitus; Hypertensive disorder; Hypothyroidism; ag7 - PSHx: 02:04 Cholecystectomy; Ligation of fallopian tube; ag7 - Immunization history:: Adult Immunizations up to date, Client reports receiving the 2nd dose of the Covid vaccine, Flu vaccine is not up to date. It has been more than one year since last vaccine. - Social history:: Smoking status: Patient denies any tobacco usage or history of. ROS: 02/22 22:50 Eyes: Negative for injury, pain, redness, and discharge, ENT: Negative for injury, mh7 pain, and discharge, Neck: Negative for injury, pain, and swelling, Abdomen/GI: Negative for abdominal pain, nausea, vomiting, diarrhea, and constipation, Back: Negative for injury and pain, : Negative for injury, bleeding, discharge, and swelling, MS/Extremity: Negative for injury and deformity, Skin: Negative for injury, rash, and discoloration, Neuro: Negative for headache, weakness, numbness, tingling, and seizure, Psych: Negative for depression, anxiety, suicide ideation, homicidal ideation, and hallucinations, Allergy/Immunology: Negative for hives, rash, and allergies, Endocrine: Negative for neck swelling, polydipsia, polyuria, polyphagia, and marked weight changes, Hematologic/Lymphatic: Negative for swollen nodes, abnormal bleeding, and unusual bruising. Exam: 22:50 Head/Face: Normocephalic, atraumatic. Eyes: Pupils equal round and reactive to light, mh7 extra-ocular motions intact. Lids and lashes normal. Conjunctiva and sclera are non-icteric and not injected. Cornea within normal limits. Periorbital areas with no swelling, redness, or edema. Neck: Trachea midline, no thyromegaly or masses palpated, and no cervical lymphadenopathy. Supple, full range of motion without nuchal rigidity, or vertebral point tenderness. No Meningismus. Chest/axilla: Normal chest wall appearance and motion. Nontender with no deformity. No lesions are appreciated. 22:50 Respiratory: Lungs have equal breath sounds bilaterally, clear to auscultation and percussion. No rales, rhonchi or wheezes noted. No increased work of breathing, no retractions or nasal flaring. Abdomen/GI: Soft, non-tender, with normal bowel sounds. No distension or tympany. No guarding or rebound. No evidence of tenderness throughout. Back: No spinal tenderness. No costovertebral tenderness. Full range of motion. Skin: Warm, dry with normal turgor. Normal color with no rashes, no lesions, and no evidence of cellulitis. MS/ Extremity: Pulses equal, no cyanosis. Neurovascular intact. Full, normal range of motion. Neuro: Awake and alert, GCS 15, oriented to person, place, time, and situation. Cranial nerves II-XII grossly intact. Motor strength 5/5 in all extremities. Sensory grossly intact. Cerebellar exam normal. Normal gait. Psych: Awake, alert, with orientation to person, place and time. Behavior, mood, and affect are within normal limits. 22:50 Constitutional: The patient appears in no acute distress, alert, awake, uncomfortable. 22:50 Cardiovascular: Rate: tachycardic, Rhythm: regular, Pulses: no pulse deficits are appreciated, Heart sounds: normal, normal S1and S2, Edema: is not appreciated, JVD: is not appreciated. Vital Signs: 22:44 BP 112 / 71; Pulse 150; Resp 19; Temp 99.0(O); Pulse Ox 95% on R/A; Weight 103.87 kg; ag7 Height 5 ft. 2 in. (157.48 cm) (R); Pain 5/10; 22:47 BP 112 / 71; Pulse 150; Resp 22 S; Pulse Ox 97% ; ag7 23:01 BP 141 / 100; Pulse 147; Resp 22; Pulse Ox 97% ; Pain 5/10; ag7 23:30 BP 127 / 73; Pulse 135; Resp 15 S; Pulse Ox 96% on R/A; Pain 5/10; ag7 02/23 00:00 BP 116 / 68; Pulse 123; Resp 16 S; Pulse Ox 97% on R/A; Pain 5/10; ag7 00:30 BP 111 / 58; Pulse 114; Resp 16 S; Pulse Ox 96% on R/A; Pain 0/10; ag7 01:00 BP 121 / 90; Pulse 95; Resp 16 S; Pulse Ox 98% on R/A; Pain 0/10; ag7 02:00 BP 100 / 75; Pulse 101; Resp 20 S; Pulse Ox 93% on R/A; Pain 0/10; ag7 02:30 BP 105 / 69; Pulse 93; Resp 25 S; Pulse Ox 91% on R/A; Pain 0/10; ag7 03:30 BP 113 / 53; Pulse 97; Resp 22 S; Pulse Ox 100% on R/A; Pain 0/10; ag7 04:41 BP 93 / 58; Pulse 94; Pulse Ox 100% on R/A; ag7 05:00 BP 98 / 66; Pulse 94; Resp 20 S; Pulse Ox 99% on R/A; Pain 0/10; ag7 02/22 22:44 Body Mass Index 41.88 (103.87 kg, 157.48 cm) [facility] MDM: 05:15 Differential diagnosis: arrythmia, dehydration, stress disorder, UTI, pneumonia. Data [facility] reviewed: vital signs, nurses notes, old medical records, lab test result(s), cardiac enzymes, CBC, electrolytes, urinalysis, EKG, radiologic studies, plain films. Data interpreted:. 05:36 Counseling: I had a detailed discussion with the patient and/or guardian regarding: the [facility] historical points, exam findings, and any diagnostic results supporting the discharge/admit diagnosis, lab results, radiology results, the need for outpatient follow up, to return to the emergency department if symptoms worsen or persist or if there are any questions or concerns that arise at home. Response to treatment: the patient's symptoms have resolved after treatment, the patient's blood pressure is in an acceptable range, mental status has returned to baseline, the patient no longer shows bradycardia, the patient is not short of breath, the patient is not tachycardic, the patient's pain is gone, the patient's temperature has normalized, the patient is now symptom free, patient is well hydrated. 05:38 Patient medically screened. [facility] 02/22 23:16 Order name: Basic Metabolic Panel; Complete Time: 00: [facility] 02/22 23:16 Order name: CBC with Diff; Complete Time: 00: [facility] 02/22 23:16 Order name: LFT's; Complete Time: 00: [facility] 02/22 23:16 Order name: Magnesium; Complete Time: 00: [facility] 02/22 23:16 Order name: NT PRO-BNP; Complete Time: 00:17 [facility] 02/22 23:16 Order name: PT-INR; Complete Time: 00: [facility] 02/22 23:16 Order name: Troponin HS; Complete Time: 00:17 [facility] 02/22 23:16 Order name: Blood Culture Adult (2) [facility] 02/22 23:16 Order name: Lactate; Complete Time: 00:17 [facility] 02/22 23:17 Order name: COVID-19 SARS RT PCR (Document "Date of Onset" if Symptomatic); Complete [facility] Time: 02:02/22 23:17 Order name: Flu; Complete Time: 02:26 [facility] 02/22 23:17 Order name: Strep; Complete Time: 02: [facility] 02/23 01:24 Order name: Urine Dipstick-Ancillary; Complete Time: 02:26 [facility] 02/23 01:32 Order name: Urine --Ancillary (enter results); Complete Time: 02: [facility] 02/22 23:16 Order name: XRAY Chest (1 view) [facility] 02/22 23:16 Order name: EKG; Complete Time: 23:16 [facility] 02/22 23:16 Order name: Cardiac monitoring; Complete Time: 00:25 [facility] 02/22 23:16 Order name: EKG - Nurse/Tech; Complete Time: 00:25 [facility] 02/22 23:16 Order name: IV Saline Lock; Complete Time: 00:25 [facility] 02/22 23:16 Order name: Labs collected and sent; Complete Time: 00:25 [facility] 02/22 23:16 Order name: O2 Per Protocol; Complete Time: 00:25 [facility] 02/22 23:16 Order name: O2 Sat Monitoring; Complete Time: 00:25 [facility] 02/23 01:49 Order name: Throat Culture [facility] 02/23 02:17 Order name: Urine Microscopic Only; Complete Time: 03:44 [facility] 02/23 02:22 Order name: Lactate Sepsis 2 HR Follow-up; Complete Time: 02:26 [facility] 02/22 23:16 Order name: Urine Dipstick-Ancillary (obtain specimen); Complete Time: 01:19 [facility] 02/22 23:16 Order name: Urine Test (obtain specimen); Complete Time: 01:19 [facility] 02/23 00:13 Order name: EKG - Nurse/Tech; Complete Time: 01:19 lp1 Administered Medications: 02/22 23:30 Drug: NS 0.9% 1000 ml Route: IV; Rate: 1000 ml; Site: left hand; lp1 02/23 01:00 Follow up: IV Status: Completed infusion; IV Intake: 1000ml ag7 02/22 23:30 Drug: Tylenol 1000 mg Route: PO; lp1 02/23 00:00 Follow up: Response: No adverse reaction ag7 02:55 Drug: LevaQUIN (levofloxacin) 500 mg Volume: 100 ml; Route: IVPB; Infused Over: 60 ag7 mins; Site: right antecubital; 02:55 Drug: Potassium Effervescent Tablet 50 mEq Route: PO; ag7 03:30 Follow up: Response: No adverse reaction ag7 Disposition Summary: 02/23/22 05:38 Discharge Ordered Location: Home [facility] Problem: new [facility] Symptoms: have improved [facility] Condition: Stable [facility] Diagnosis - Palpitations [facility] - UTI/ Urinary tract infection, site not specified [facility] Followup: [facility] - With: Private Physician - When: 1 - 2 days - Reason: Worsening of condition, Recheck today's complaints, Continuance of care, Re-evaluation by your physician Discharge Instructions: - Discharge Summary Sheet [facility] - Urinary Tract Infection, Adult, [id number] [facility] - Palpitations, [id number] [facility] Forms: - Medication Reconciliation Form [facility] - Thank You Letter [facility] - Antibiotic Education [facility] - Prescription Opioid Use [facility] Prescriptions: - levofloxacin 500 mg Oral Tablet - take 1 tablet by ORAL route once daily for 7 days; 7 tablet; Refills: 0, 7 Product Selection Permitted Signatures: Dispatcher [employer] Kath Arreguin RN RN 1 Burt Gee MD MD 7 Charlene Reece RN RN 7
[2022-02-23 06:39] VITALS: BP 98/66; O2SAT 99
--- NOTE | 2022-02-23 14:07 | RAD REPORT ---
EXAM DESCRIPTION: RAD - Chest Single View - 02/22/2022 11:47 pm CLINICAL HISTORY: The patient is 46 years old and is Female; PALPITATIONS TECHNIQUE: Frontal view of the chest. COMPARISON: No relevant prior studies available. FINDINGS: Lungs: Low lung volumes. No consolidation. Pleural space: Unremarkable. No pneumothorax. Heart: Unremarkable. Mediastinum: Unremarkable. Bones/joints: Unremarkable. Vasculature: Prominent interstitial and vascular markings. IMPRESSION: 1. Low lung volumes. 2. No consolidation. 3. Prominent interstitial and vascular markings. Electronically signed by: Chemo Soares MD 02/22/2022 11:59 PM CDT Due to temporary technical issues with the PACS/Fluency reporting system, reports are being signed by the in house radiologist without review as a courtesy to ensure prompt reporting. The interpreting r adiologist is fully responsible for the content of the report.
--- NOTE | 2022-02-24 07:54 | EKG ---
Test Date: 2022-02-23 Test Time: 00:53:26 Public Health Representative: AYDE MEASUREMENT RESULTS: Intervals: Rate: 112 VT: 180 QRSD: 116 QT: 334 QTc: 455 [place]: P: 63 VT: 180 QRS: -35 T: 56 INTERPRETIVE STATEMENTS: Sinus tachycardia Left axis deviation Pulmonary disease pattern Incomplete right bundle branch block Abnormal ECG Compared to ECG 10/18/2021 04:30:46 Left-axis deviation now present Incomplete right bundle-branch block now present Sinus rhythm no longer present Left anterior fascicular block no longer present Electronically Signed On 02-24-22 07:50:40 CDT by Elijah Lock
--- NOTE | 2022-02-24 13:01 | EKG ---
Test Date: 2022-02-22 Test Time: 22:58:19 Book Packer: AYDE MEASUREMENT RESULTS: Intervals: Rate: 148 AR: 128 QRSD: 110 QT: 314 QTc: 492 [place]: P: AR: 128 QRS: -81 T: 59 INTERPRETIVE STATEMENTS: Sinus tachycardia Pulmonary disease pattern Incomplete right bundle branch block Left anterior fascicular block Nonspecific ST abnormality Abnormal ECG Compared to ECG 10/18/2021 04:30:46 Incomplete right bundle-branch block now present ST (T wave) deviation now present Sinus rhythm no longer present Electronically Signed On 02-24-22 12:59:55 CDT by Elijah Lock
== END 2022-02-23 06:03 | disposition home or self-care (01) ==
LOC: ER 22:54
DX: R00.2 Palpitations (principal); N39.0 Urinary tract infection, site not specified; R05.9 Cough, unspecified; E11.9 Type 2 diabetes mellitus without complications; E03.9 Hypothyroidism, unspecified; F41.9 Anxiety disorder, unspecified; I10 Essential (primary) hypertension; Z20.822 Contact with and (suspected) exposure to COVID-19; Z88.1 Allergy status to other antibiotic agents; Z88.5 Allergy status to narcotic agent; Z88.8 Allergy status to other drugs, medicaments and biological substances
CPT/HCPCS: 96361; 93005 ×2; 87040 ×2; 87070; 85025; 80048; 36415 ×2; 83735; 81025; 85610; 80076; 87081; 83605 ×2; 84484; 83880; 87804 ×2; 71045; 96374; 99284; U0003; J7030; 81003; 81015

== ENCOUNTER 2022-04-06 14:48 | Emergency (ER) | payer OTHER ==
[2022-04-06 15:45] LABS: Urine Blood Negative (Negative); Urine Glucose Negative (Negative); Urine Protein Negative (Negative); Urine pH 5.5 (5.0-7.0)
--- NOTE | 2022-04-06 15:57 | RAD REPORT ---
EXAM DESCRIPTION: CT - C Spine Wo Con - 04/06/2022 3:45 pm CLINICAL HISTORY: heard pop, neck pain, radiates to left shoulder Neck pain, radiculopathy COMPARISON: Head C Spine Mpr Wo Con dated 08/16/2021; Neck Angio dated 12/04/2020 FINDINGS: The cervical vertebral body heights and disc spaces are maintained. No evidence of acute cervical spine fracture or subluxation. Prevertebral soft tissues are normal in thickness. IMPRESSION: Negative for acute cervical spine abnormality. All CT scans are performed using dose optimization technique as appropriate and may include automated exposure control or mA/KV adjustment according to patient size.
--- NOTE | 2022-04-06 16:46 | EDPHYS ---
Physician Documentation [facility] Name: Lnida Rahman Age: 46 yrs Sex: Female : 1975 Arrival Date: 04/06/2022 Time: 14:52 Bed 2 Private MD: ED Physician Tommy Orellana HPI: 04/06 15:07 This 46 yrs old Female presents to ER via EMS with complaints of Neck Pain, rn >24Hrs Old. 15:07 The patient or guardian complains of pain, that is acute. The symptoms are located at rn the cervical spine. Onset: The symptoms/episode began/occurred yesterday. Context: The problem was sustained outdoors, The neck injury/problem resulted from walking. Associated signs and symptoms: Pertinent positives: tingling, in the back of neck. The pain radiates to the posterior aspect of left shoulder. Modifying factors: The symptoms are alleviated by nothing. the symptoms are aggravated by movement. Severity of symptoms: At their worst the symptoms were mild, in the emergency department the symptoms are unchanged. The patient has not experienced similar symptoms in the past. The patient has not recently seen a physician. Pt reports walking yesterday, no direct trauma/fall/misstep, heard a pop in neck and now having cervical neck pain with tingling that radiates to left shoulder. No fever. 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 jl7 Historical: - Allergies: 14:55 Amoxicillin; ph 14:55 Benadryl; ph 14:55 Codeine; ph 14:55 Demerol; ph 14:55 Geodon; ph 14:55 Meclizine; ph 14:55 Tessalon Perles; ph - Home Meds: 14:55 albuterol sulfate 90 mcg/actuation Inhl aebs 1 puff every 6 hours [Active]; ph amitriptyline 50 mg Oral tab 2 tabs nightly [Active]; biotin 1 mg Oral cap [Active]; buspirone 15 mg Oral tab 2 tabs 2 times per day [Active]; citalopram 40 mg tab 1 tab once daily [Active]; clotrimazole 1 % Topical crea 2 times per day [Active]; cyanocobalamin (vitamin B-12) 1000 mcg/ml injection Oral drop [Active]; cyclobenzaprine 5 mg Oral tab 1 tab 3 times per day [Active]; diclofenac sodium 75 mg Oral chew 1 tab 2 times per day [Active]; diltiazem HCl 120 mg Oral cp12 1 cap 2 times per day [Active]; econazole nitrate 1 % cream twice a day [Active]; ferrous sulfate 325 mg (65 mg iron) Oral chew [Active]; Flovent 110 mcg/actuation Inhl aero 2 puffs 2 times per day [Active]; ginkgo biloba 120 mg Oral tab [Active]; levothyroxine 50 mcg cap 1 cap once daily [Active]; losartan 50 mg Oral tab 1 tab 2 times per day [Active]; metformin 500 mg Oral cp24 1 tab 2 times per day [Active]; Myrbetriq 50 mg Oral Tb24 1 tab once daily [Active]; omeprazole 20 mg Oral cpDR 1 cap once daily [Active]; ozempic 0.25 mg [Active]; pregabalin 150 mg Oral cap 1 cap 3 times per day [Active]; promethazine 25 mg Oral tab 1 tab once daily [Active]; rosuvastatin 10 mg Oral cpSP 1 cap nightly [Active]; triamcinolone acetonide 0.025 % Topical lotn 3 times per day [Active]; - PMHx: 14:55 Anemia; Anxiety; diabetes mellitus; Hypertensive disorder; Hypothyroidism; ph - PSHx: 14:55 Cholecystectomy; Ligation of fallopian tube; ph - Immunization history:: Adult Immunizations unknown. - Social history:: Smoking status: Patient denies any tobacco usage or history of. - Family history:: not pertinent. - Hospitalizations: : No recent hospitalization is reported. ROS: 15:44 Constitutional: Negative for fever, chills, and weight loss, Eyes: Negative for injury, rn pain, redness, and discharge, Neck: + neck pain Cardiovascular: Negative for chest pain, palpitations, and edema, Respiratory: Negative for shortness of breath, cough, wheezing, and pleuritic chest pain, Abdomen/GI: Negative for abdominal pain, nausea, vomiting, diarrhea, and constipation, Back: Negative for injury and pain, MS/Extremity: Negative for injury and deformity, Skin: Negative for injury, rash, and discoloration, Neuro: Negative for headache, weakness, and seizure. Exam: 15:44 Constitutional: This is a well developed, well nourished patient who is awake, alert, rn and in no acute distress. Head/Face: Normocephalic, atraumatic. Neck: + pericervical tenderness, no bony tenderness, in ccollar, no anterior neck tenderness or crepitus. Cardiovascular: Tachycardic, regular. No pulse deficits. Respiratory: No increased work of breathing, no retractions or nasal flaring. Abdomen/GI: Soft, non-tender Skin: Warm, dry MS/ Extremity: Pulses equal, no cyanosis. Neuro: Awake and alert, GCS 15, oriented to person, place, time, and situation. Motor strength 5/5 in all extremities. Sensory grossly intact. Vital Signs: 14:53 BP 122 / 91; Pulse 104; Resp 18; Temp 98.0; Pulse Ox 99% on R/A; Weight 105.23 kg; ph Height 5 ft. 2 in. (157.48 cm); Pain 10/10; 17:11 BP 118 / 87; Pulse 89; Resp 18; Temp 98.0; Pulse Ox 99% on R/A; ph 14:53 Body Mass Index 42.43 (105.23 kg, 157.48 cm) ph MDM: 14:52 Patient medically screened. rn 16:44 Differential diagnosis: arthritis, Cervical Disc Herniation Cervical Discogenic Pain rn cervical strain. Data reviewed: vital signs, nurses notes, radiologic studies, CT scan, and as a result, I will discharge patient. Counseling: I had a detailed discussion with the patient and/or guardian regarding: the historical points, exam findings, and any diagnostic results supporting the discharge/admit diagnosis, radiology results, the need for outpatient follow up, to return to the emergency department if symptoms worsen or persist or if there are any questions or concerns that arise at home. Response to treatment: the patient's symptoms have mildly improved after treatment, and as a result, I will discharge patient. Special discussion: I discussed with the patient/guardian in detail that at this point there is no indication for admission to the hospital. It is understood, however, that if the symptoms persist or worsen the patient needs to return immediately for re-evaluation. ED course: No acute findings on CT cspine, normal neuro exam, will dc home with pcp f/u as needed. Also shows UTI with symptoms. . 04/06 15:45 Order name: Urine Dipstick-Ancillary; Complete Time: 16:02 EDHI 04/06 14:53 Order name: CT C Spine; Complete Time: 16:02 rn Administered Medications: 16:58 Drug: Cipro (ciprofloxacin) 500 mg Route: PO; ph 17:11 Follow up: Response: No adverse reaction ph 16:58 Drug: traMADol 50 mg Route: PO; ph 17:11 Follow up: Response: No adverse reaction ph Disposition Summary: 04/06/22 16:46 Discharge Ordered Location: Home rn Problem: new rn Symptoms: have improved rn Condition: Stable rn Diagnosis - Strain of muscle, fascia and tendon at neck level, initial encounter rn - UTI/ Urinary tract infection, site not specified rn Followup: rn - With: Private Physician - When: As needed - Reason: Recheck today's complaints, Re-evaluation by your physician Discharge Instructions: - Discharge Summary Sheet rn - Urinary Tract Infection, Adult rn - Cervical Strain and Sprain Rehab-SportsMed rn Forms: - Medication Reconciliation Form rn - Thank You Letter rn - Antibiotic rn team leader - Prescription Opioid Use rn Prescriptions: - Cipro 500 mg Oral Tablet - take 1 tablet by ORAL route every 12 hours for 7 days; 14 tablet; Refills: 0, rn Product Selection Permitted Signatures: Dispatcher [employer] Tommy Juárez MD MD rn Hall, Patricia, RN RN ph
--- NOTE | 2022-04-06 16:46 | ER ---
Nurse's Notes [facility] Name: Linda Rahman Age: 46 yrs Sex: Female : 1975 Arrival Date: 04/06/2022 Time: 14:52 Bed 2 Private MD: Diagnosis: Strain of muscle, fascia and tendon at neck level, initial encounter;UTI/ Urinary tract infection, site not specified Presentation: 04/06 14:53 Chief complaint: Patient states: Neck pain since yesterday, radiates to back and L ph shoulder, denies trauma, states, " I was just walking to the bus stop and it popped all of a sudden and it has been hurting since.". Coronavirus screen: Vaccine status: Patient reports receiving the 2nd dose of the covid vaccine. Ebola Screen: No symptoms or risks identified at this time. Initial Sepsis Screen: Does the patient meet any 2 criteria? No. Patient's initial sepsis screen is negative. Does the patient have a suspected source of infection? No. Patient's initial sepsis screen is negative. Risk Assessment: Do you want to hurt yourself or someone else? Patient reports no desire to harm self or others. Onset of symptoms was April 06, 2022. Care prior to arrival: Cervical collar in place. 14:53 Method Of Arrival: EMS: [facility] ph 14:53 Acuity: HOL[place] 4 ph Triage Assessment: 14:56 General: Appears in no apparent distress. uncomfortable, Behavior is calm, cooperative, ph appropriate for age. Pain: Complains of pain in back of neck Pain radiates to back and posterior aspect of left shoulder. Neuro: Level of Consciousness is awake, alert, obeys commands, Oriented to person, place, time, situation, Denies weakness paresthesias numbness headache. Cardiovascular: Capillary refill < 3 seconds in bilateral fingers Patient's skin is warm and dry. Respiratory: Airway is patent Respiratory effort is even, unlabored. Derm: Skin is intact, is healthy with good turgor, Skin is pink, warm \\T\\ dry. Musculoskeletal: Circulation, motion, and sensation intact. Range of motion: intact in all extremities. 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 jl7 Historical: - Allergies: 14:55 Amoxicillin; ph 14:55 Benadryl; ph 14:55 Codeine; ph 14:55 Demerol; ph 14:55 Geodon; ph 14:55 Meclizine; ph 14:55 Tessalon Perles; ph - Home Meds: 14:55 albuterol sulfate 90 mcg/actuation Inhl aebs 1 puff every 6 hours [Active]; ph amitriptyline 50 mg Oral tab 2 tabs nightly [Active]; biotin 1 mg Oral cap [Active]; buspirone 15 mg Oral tab 2 tabs 2 times per day [Active]; citalopram 40 mg tab 1 tab once daily [Active]; clotrimazole 1 % Topical crea 2 times per day [Active]; cyanocobalamin (vitamin B-12) 1000 mcg/ml injection Oral drop [Active]; cyclobenzaprine 5 mg Oral tab 1 tab 3 times per day [Active]; diclofenac sodium 75 mg Oral chew 1 tab 2 times per day [Active]; diltiazem HCl 120 mg Oral cp12 1 cap 2 times per day [Active]; econazole nitrate 1 % cream twice a day [Active]; ferrous sulfate 325 mg (65 mg iron) Oral chew [Active]; Flovent 110 mcg/actuation Inhl aero 2 puffs 2 times per day [Active]; ginkgo biloba 120 mg Oral tab [Active]; levothyroxine 50 mcg cap 1 cap once daily [Active]; losartan 50 mg Oral tab 1 tab 2 times per day [Active]; metformin 500 mg Oral cp24 1 tab 2 times per day [Active]; Myrbetriq 50 mg Oral Tb24 1 tab once daily [Active]; omeprazole 20 mg Oral cpDR 1 cap once daily [Active]; ozempic 0.25 mg [Active]; pregabalin 150 mg Oral cap 1 cap 3 times per day [Active]; promethazine 25 mg Oral tab 1 tab once daily [Active]; rosuvastatin 10 mg Oral cpSP 1 cap nightly [Active]; triamcinolone acetonide 0.025 % Topical lotn 3 times per day [Active]; - PMHx: 14:55 Anemia; Anxiety; diabetes mellitus; Hypertensive disorder; Hypothyroidism; ph - PSHx: 14:55 Cholecystectomy; Ligation of fallopian tube; ph - Immunization history:: Adult Immunizations unknown. - Social history:: Smoking status: Patient denies any tobacco usage or history of. - Family history:: not pertinent. - Hospitalizations: : No recent hospitalization is reported. Screenin:58 Abuse screen: Denies threats or abuse. Denies injuries from another. Nutritional ph screening: No deficits noted. Tuberculosis screening: No symptoms or risk factors identified. Fall Risk None identified. Assessment: 15:00 General: see triage. jl7 16:35 Reassessment: Dr. Orellana at bedside discussing results and POC. jl7 Vital Signs: 14:53 BP 122 / 91; Pulse 104; Resp 18; Temp 98.0; Pulse Ox 99% on R/A; Weight 105.23 kg; ph Height 5 ft. 2 in. (157.48 cm); Pain 10/10; 17:11 BP 118 / 87; Pulse 89; Resp 18; Temp 98.0; Pulse Ox 99% on R/A; ph 14:53 Body Mass Index 42.43 (105.23 kg, 157.48 cm) ph ED Course: 14:52 Patient arrived in ED. ph 14:52 Tommy Orellana MD is Attending Physician. rn 14:55 Triage completed. ph 14:58 Arm band placed on Patient placed in an exam room. ph 14:58 Patient has correct armband on for positive identification. Bed in low position. Call ph light in reach. Side rails up X 1. Pulse ox on. NIBP on. 15:45 Urine collected: clean catch specimen, cloudy. jl7 15:47 CT C Spine In Process Unspecified. EDMS 16:23 Jayden Bond, ABDULLAHI is Primary Nurse. jl7 16:35 No provider procedures requiring assistance completed. Patient did not have IV access jl7 during this emergency room visit. Administered Medications: 16:58 Drug: Cipro (ciprofloxacin) 500 mg Route: PO; ph 17:11 Follow up: Response: No adverse reaction ph 16:58 Drug: traMADol 50 mg Route: PO; ph 17:11 Follow up: Response: No adverse reaction ph Medication: 14:58 VIS not applicable for this client. ph Outcome: 16:46 Discharge ordered by . rn 17:11 Discharged to home ambulatory. ph 17:11 Condition: good 17:11 Discharge instructions given to patient, Instructed on discharge instructions, follow up and referral plans. medication usage, Demonstrated understanding of instructions, follow-up care, medications, Prescriptions given X 1. 17:11 Patient left the ED. ph Signatures: Dispatcher [employer] EDMS Tommy Orellana MD MD rn Hall, Patricia, RN RN ph Jayden Bond RN RN jl7
[2022-04-06] MEDS ORDERED: CIPROFLOXACIN HCL 500 MG TAB ONE (17:08)
[2022-04-06] MEDS ORDERED: TRAMADOL HCL 50 MG TAB ONE (17:08)
[2022-04-06 17:57] VITALS: TEMP 98; O2SAT 99
[2022-04-06 18:00] VITALS: BP 118/87
== END 2022-04-06 17:11 | disposition home or self-care (01) ==
LOC: ER 14:48
DX: S16.1XXA Strain of muscle, fascia and tendon at neck level, initial encounter (principal); N39.0 Urinary tract infection, site not specified; M54.2 Cervicalgia; D64.9 Anemia, unspecified; F41.9 Anxiety disorder, unspecified; E11.9 Type 2 diabetes mellitus without complications; I10 Essential (primary) hypertension; E03.9 Hypothyroidism, unspecified; Z88.1 Allergy status to other antibiotic agents; Z88.5 Allergy status to narcotic agent
CPT/HCPCS: 72125; 81003; 99284

== ENCOUNTER 2022-04-17 15:32 | Emergency (ER) | payer OTHER ==
--- OUTSIDE RECORDS SUMMARY | 2022-04-17 15:43 | XMS REPORT | Continuity of Care Document ---
:1975 Author Organization [facility] t Address [address] [place] [address] Care Team Providers Name Role Phone SCOTTY JOLLY Primary Care Physician Unavailable GLENN Attending Clinician Unavailable SCOTTY JOLLY Attending Clinician Unavailable Dulce Maria HINTON Attending Clinician Unavailable PRINCESS Attending Clinician Unavailable BRUNILDA Attending Clinician Unavailable BRUNILDA Attending Clinician Unavailable JASON AGUILAR Attending Clinician Unavailable Tirso OLIVEIRA Attending Clinician Unavailable Gomez HOLLINS, K.H. Attending Clinician Barry BARR Attending Clinician Unavailable Agustina HOLLINS Attending Clinician AGUSTINA Attending Clinician Unavailable Scotty Jolly MD Attending Clinician Nino HOLLINS Attending Clinician NINO Attending Clinician Unavailable Doctor Unassigned, Name Attending Clinician Unavailable WILLI Attending Clinician Unavailable Willi HOLLINS Attending Clinician FRANCIA ANTONIO Attending Clinician Unavailable Bernadette HENRIQUEZ Attending Clinician Unavailable Eladia Attending Clinician Unavailable BRUNILDA Admitting Clinician Unavailable WILLI Admitting Clinician Unavailable Willi HOLLINS Admitting Clinician Eladia Admitting Clinician Unavailable Payers Payer Name Policy Type Policy Number Effective Date Expiration Date Barry barreratahir [facility] DUAL [id number] 2022 COMP HMO D SNP 00:00:00 [place] [id number] 2021 00:00:00 [employer]OTED HE[employer] [id number] 2021 (MEDICARE 00:00:00 REPLACEMENT HMO) MEDICAID OF [place] [id number] 2016 2016 00:00:00 00:00:00 Problems Condition Condition Condition Status Onset Resolution Last Treating Co mments Source Name Details Category Date Date Treatment Clinician Date Weakening Weakening Disease Active Uni vers of pelvic of pelvic 4-08 ity of fundus fundus 00:00: [place] [facility] Intestinal Intestinal Disease Active Overview : Univers metaplasia metaplasia 4-05 Formattin ity of of body of of body of 00:00: g of this [place] stomach stomach 00 note Medical without without might be Branch dysplasia dysplasia different from the original. Added automatic ally from request for surgery [id number] Chronic Chronic Disease Active Overview: Univ ers superficia superficia 4-05 Formattin ity of l l 00:00: g of this [place] gastritis gastritis 00 note Medi cipriano without without might be Branch bleeding bleeding different from the original. 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 Added automatic ally from request for surgery [id number] Indigestio Indigestio Disease Active 2020-09 Overview : Univers n n 2-15 Formattin ity of 00:00: g of this 00 note Medical might be Branch different from the original. Added automatic ally from request for surgery [id number] Bloating Bloating Disease Active 2020-09 Overview: Un jerrod 2-15 Formattin ity of 00:00: g of this 00 note Medical might be Branch different from the original. Added automatic ally from request for surgery [id number] Dental Dental Disease Active Univers caries caries [...] Active Univers 7-10 ity of 00:00: [place] 00 Medical Branch Twitching Twitching Disease Active Uni [...] (BMI 2-12 ity of 30-39.9) 30-39.9) 00:00: [place] [facility] Sinus Sinus Disease Active Univers tachycardi tachycardi 1-02 it y of a a 00:00: [place] [facility] Dyslipidem Dyslipidem Disease Active 2015-09 U nivers ia ia 1-22 ity of 00:00: [place] [facility] Vitamin Vitamin Disease Active 2015-09 Univers B12 B12 1-10 [place] of deficiency deficiency [place] [facility] 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 6-09 ity of 00:00: [place] [facility] Abnormal Abnormal Disease Active Unive rs uterine uterine 5-23 ity of bleeding bleeding 00:00: [place] [facility] Submucous Submucous Disease Active Uni vers leiomyoma leiomyoma 5-23 ity of of uterus of [place] 00[place] [facility] Encounter Encounter Disease Active Uni vers for blood for blood 2-16 ity of transfusio transfusio 00:[place] 00 [facility] [place] History of History of Disease Active U nivers tubal tubal 2-05 ity of ligation ligation 00:00: [place] [facility] 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 00:00[place] disorder, disorder, 00 [facility] cipriano in in Branch remission remission Hypothyroi Hypothyroi Disease Active U nivers d d 2-05 ity of 00:00: [place] [facility] Essential Essential Disease Active Uni vers hypertensi hypertensi 2-05 it y of on, benign on, benign 00:00: [place] [facility] Well woman Well woman Disease Active U nivers exam exam 2-05 ity of 00:00: [place] [facility] Chest pain Chest pain Disease Active U nivers 9-13 ity of 00:00: [place] [facility] Peripheral Peripheral Disease Active U nivers neuropathy neuropathy it y of [facility] 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 ity of [facility] PCOS PCOS Disease Active Univers (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) [facility] Branch Allergies, Adverse Reactions, Alerts Allergy Allergy Status Severity Reaction(s) Onset Inactive Treating Comm ents Source Name Type Date Date Clinician Milk Propensi Active Other - See sneeze Uni vers ty to comments 8 ity of adverse 00:00: [place] reaction 00 Medical s Branch MILK DRUG Active Other-Cmnt Univer s INGREDI 8-14 ity of 00:00: [place] 00 Medical Branch Tomato Propensi Active Other - See Tomato Uni vers ty to comments 04-03 source ity of adverse 00:00: reportedl [place] reaction 00 y causes Medica l s excessive Branch sneezing. But pt still eats it. TOMATO DRUG Active Low Other-Cmnt Univer s INGREDI 7- ity of 00:00: [place] 00 Medical Branch Codeine Propensi Active Itching Univer s ty to 1-17 ity of adverse 00:00: [place] reaction 00 Medical s Branch CODEINE DRUG Active Low ITCHING 2018- Univers INGREDI 1-17 ity of 00:00: [place] 00 Medical Branch Lorazepa Propensi Active Swelling 2016-09 Hard to Uni vers m ty to 0-02 swallow ity of adverse 00:00: [place] reaction 00 Medical s Branch LORAZEPA DRUG Active High Swelling 2016- Univer s M INGREDI 0-02 ity of 00:00: [place] 00 Medical Branch Diphenhy Propensi Active Swelling 2017 Univ ers dramine ty to 7-18 ity of Hcl adverse 00:00: [place] reaction 00 Medical s Branch DIPHENHY DRUG Active High Swelling 2017 Univer s DRAMINE INGREDI 7-18 ity of HCL 00:00: [place] 00 Medical Branch Benzonat Propensi Active Swelling 2017-0 Tightness U nivers ate ty to 2-09 in ity of adverse 00:00: throat, [place] reaction 00 difficult Medic al s to y Branch drug swallowin g and breathing BENZONAT DRUG Active High Swelling 20170 Univer s ATE INGREDI 2-09 ity of 00:00: [place] 00 Medical Branch Meclizin Propensi Active Anaphylaxis 2017-0 U nivers e ty to 1-23 ity of adverse 00:00: [place] reaction 00 Medical s Branch MECLIZIN DRUG Active High Anaphylaxis 2017-0 Uni vers E INGREDI 1-23 ity of 00:00: [place] 00 Medical Branch Amoxicil Propensi Active Hives 2014-0 Univer s franca ty to 05-30 ity of adverse 00:00: [place] reaction 00 Medical s Branch Meperidi Propensi Active Hallucinatio 2015-0 Univers ne Hcl ty to ns 05-30 ity of adverse 00:00: [place] reaction 00 Medical s Branch Ziprasid Propensi Active Hives 2014- Univer s one Hcl ty to 05-30 ity of adverse 00:00: [place] reaction 00 Medical s Branch MEPERIDI DRUG Active High Hallucinates 2014- Un jerrod NE HCL INGREDI 05-30 ity of 00:00: [place] 00 Medical Branch ZIPRASID DRUG Active High Hives 2014- Univers ONE HCL INGREDI 05-30 ity of 00:00: [place] 00 Medical Branch AMOXICIL DRUG Active Med Hives 2014- Univers FRANCA INGREDI 05-30 ity of 00:00: [place] 00 [facility] Social History Social Habit Start Date Stop Date Quantity Comments Source Exposure to 2022-03-29 2022-04-08 Not sure [facility] SARS-CoV-2 (event) 00:00:00 08:43:00 [facility] Alcohol intake 2022-03-03 2022-03-03 0 /d University of 00:00:00 00:00:00 [facility] Cigarettes smoked 2017-10-20 2017-10-20 Univers ity of current (pack per 00:00:00 00:00:00 [facility] ) - Reported Branch Cigarette 2017-10-20 2017-10-20 University of pack-years 00:00:00 00:00:00 [facility] Tobacco use and 2017-10-20 2017-10-20 Smokeless Universit y of exposure 00:00:00 00:00:00 tobacco non-user [facility] History of tobacco 1982-10-20 2007-10-20 Cigarette Smoker University of use 00:00:00 00:00:00 [facility] Sex [birth year] At [birth year] Universit y of 00:00:00 00:00:00 [facility] Smoking Status Start Date Stop Date Source Ex-smoker 2017-10-20 00:00:00 2017-10-20 00:00:00 Universi ty of [place] [facility] Medications Ordered Filled Start Stop Current Ordering Indication Dosage Frequency Signature Comments Components Source Medication Medication Date Date Medication? Clinician (SIG) Name Name LOSARTAN 50 2021-0 Yes [id number] Take 1 Univers mg tablet 7-20 tablet by ity o f 00:00: mouth 00 twice Medical daily Branch DILTIAZEM 2021-0 Yes [id number] Take 1 Un jerrod 120 mg 24 7-20 capsule by ity of hr capsule 00:00: mouth 00 twice Medical daily Branch methocarbam 2021-0 Yes [id number] 500mg Take 1 Univers oL 500 mg 7-02 tablet by ity o f tablet 00:00: mouth 4 (four) Medical times Branch daily. methocarbam 2021-0 Yes [id number] 500mg Take 1 Univers oL 500 mg 7-02 tablet by ity o f tablet 00:00: mouth 4 (four) Medical times Branch daily. methocarbam 2021-0 Yes [id number] 500mg Take 1 Univers oL 500 mg 7-02 tablet by ity o f tablet 00:00: mouth 4 (four) Medical times Branch daily. methocarbam 2021-0 Yes [id number] 500mg Take 1 Univers oL 500 mg 7-02 tablet by ity o f tablet 00:00: mouth 4 (four) Medical times Branch daily. methocarbam 2021-0 Yes [id number] 500mg Take 1 Univers oL 500 mg 7-02 tablet by ity o f tablet 00:00: mouth 4 (four) Medical times Branch daily. SUMATRIPTAN 2021-0 Yes [id number] TAKE 1 Univers 50 mg 6-17 TABLET BY ity of tablet 00:00: MOUTH [place] 00 NEEDED FOR Medical MIGRAINE Branch HEADACHE (MAY REPEAT IN TWO HOURS) SUMATRIPTAN 2021-0 Yes [id number] TAKE 1 Univers 50 mg 6-17 TABLET BY ity of tablet 00:00: MOUTH [place] 00 NEEDED FOR Medical MIGRAINE Branch HEADACHE (MAY REPEAT IN TWO HOURS) SUMATRIPTAN 2021-0 Yes [id number] TAKE 1 Univers 50 mg 6-17 TABLET BY ity of tablet 00:00: MOUTH [place] 00 NEEDED FOR Medical MIGRAINE Branch HEADACHE (MAY REPEAT IN TWO HOURS) SUMATRIPTAN 2021-0 Yes [id number] TAKE 1 Univers 50 mg 6-17 TABLET BY ity of tablet 00:00: MOUTH [place] 00 NEEDED FOR Medical MIGRAINE Branch HEADACHE (MAY REPEAT IN TWO HOURS) SUMATRIPTAN 2022-0 Yes [id number] TAKE 1 Univers 50 mg 6-17 TABLET BY ity of tablet 00:00: MOUTH [place] 00 NEEDED FOR Medical MIGRAINE Branch HEADACHE (MAY REPEAT IN TWO HOURS) SUMATRIPTAN 2022-0 Yes [id number] TAKE 1 Univers 50 mg 6-17 TABLET BY ity of tablet 00:00: MOUTH [place] 00 NEEDED FOR Medical MIGRAINE Branch HEADACHE (MAY REPEAT IN TWO HOURS) SUMATRIPTAN 2022-0 Yes [id number] TAKE 1 Univers 50 mg 6-17 TABLET BY ity of tablet 00:00: MOUTH [place] 00 NEEDED FOR Medical MIGRAINE Branch HEADACHE (MAY REPEAT IN TWO HOURS) SUMATRIPTAN 2022-0 Yes [id number] TAKE 1 Univers 50 mg 6-17 TABLET BY ity of tablet 00:00: MOUTH [place] 00 NEEDED FOR Medical MIGRAINE Branch HEADACHE (MAY REPEAT IN TWO HOURS) SUMATRIPTAN 2022-0 Yes [id number] TAKE 1 Univers 50 mg 6-17 TABLET BY ity of tablet 00:00: MOUTH [place] 00 NEEDED FOR Medical MIGRAINE Branch HEADACHE (MAY REPEAT IN TWO HOURS) SUMATRIPTAN 2022-0 Yes [id number] TAKE 1 Univers 50 mg 6-17 TABLET BY ity of tablet 00:00: MOUTH [place] 00 NEEDED FOR Medical MIGRAINE Branch HEADACHE (MAY REPEAT IN TWO HOURS) fexofenadin 2022-0 Yes [id number] 180mg Take 1 Univers e (LUIS 6-13 tablet by ity of ALLERGY) 00:00: mouth [place] 180 mg 00 daily. Medical tablet Branch fexofenadin 2022-0 Yes [id number] 180mg Take 1 Univers e (LUIS 6-13 tablet by ity of ALLERGY) 00:00: mouth [place] 180 mg 00 daily. Medical tablet Branch fexofenadin 2022-0 Yes [id number] 180mg Take 1 Univers e (LUIS 6-13 tablet by ity of ALLERGY) 00:00: mouth [place] 180 mg 00 daily. Medical tablet Branch fexofenadin 2022-0 Yes [id number] 180mg Take 1 Univers e (LUIS 6-13 tablet by ity of ALLERGY) 00:00: mouth [place] 180 mg 00 daily. Medical tablet Branch fexofenadin 2022-0 Yes [id number] 180mg Take 1 Univers e (LUIS 6-13 tablet by ity of ALLERGY) 00:00: mouth [place] 180 mg 00 daily. Medical tablet Branch fexofenadin Yes [id number] 180mg Take 1 Univers e (LUIS 6-13 tablet by ity of ALLERGY) 00:00: mouth [place] 180 mg 00 daily. Medical tablet Branch fexofenadin Yes [id number] 180mg Take 1 Univers e (LUIS 6-13 tablet by ity of ALLERGY) 00:00: mouth [place] 180 mg 00 daily. Medical tablet Branch fexofenadin Yes [id number] 180mg Take 1 Univers e (LUIS 6-13 tablet by ity of ALLERGY) 00:00: mouth [place] 180 mg 00 daily. Medical tablet Branch fexofenadin Yes [id number] 180mg Take 1 Univers e (LUIS 6-13 tablet by ity of ALLERGY) 00:00: mouth [place] 180 mg 00 daily. Medical tablet Branch fexofenadin Yes [id number] 180mg Take 1 Univers e (LUIS 6-13 tablet by ity of ALLERGY) 00:00: mouth [place] 180 mg 00 daily. Medical tablet Branch fexofenadin Yes [id number] 180mg Take 1 Univers e (LUIS 6-13 tablet by ity of ALLERGY) 00:00: mouth [place] 180 mg 00 daily. Medical tablet Branch rosuvastati Yes [id number] 10mg Take 1 Univers n 10 mg 6-08 tablet by ity of tablet 00:00: mouth at [place] 00 bedtime. Medical Branch rosuvastati Yes [id number] 10mg Take 1 Univers n 10 mg 6-08 tablet by ity of tablet 00:00: mouth at [place] 00 bedtime. Medical Branch rosuvastati 0 Yes [id number] 10mg Take 1 Univers n 10 mg 6-08 tablet by ity of tablet 00:00: mouth at [place] 00 bedtime. Medical Branch rosuvastati Yes [id number] 10mg Take 1 Univers n 10 mg 6-08 tablet by ity of tablet 00:00: mouth at [place] 00 bedtime. Medical Branch rosuvastati Yes [id number] 10mg Take 1 Univers n 10 mg 6-08 tablet by ity of tablet 00:00: mouth at [place] [address] bedtime. [facility] Branch rosuvastati Yes [id number] 10mg Take 1 Univers n 10 mg 6-08 tablet by ity of tablet 00:00: mouth at [place] [address] bedtime. [facility] Branch rosuvastati Yes [id number] 10mg Take 1 Univers n 10 mg 6-08 tablet by ity of tablet 00:00: mouth at [place] [address] bedtime. [facility] rosuvastati Yes [id number] 10mg Take 1 Univers n 10 mg 6-08 tablet by ity of tablet 00:00: mouth at [place] [address] bedtime. [facility] rosuvastati Yes [id number] 10mg Take 1 Univers n 10 mg 6-08 tablet by ity of tablet 00:00: mouth at [place] [address] bedtime. [facility] rosuvastati Yes [id number] 10mg Take 1 Univers n 10 mg 6-08 tablet by ity of tablet 00:00: mouth at [place] [address] bedtime. [facility] rosuvastati Yes [id number] 10mg Take 1 Univers n 10 mg 6-08 tablet by ity of tablet 00:00: mouth at [place] [address] bedtime. [facility] rosuvastati Yes [id number] 10mg Take 1 Univers n 10 mg 6-08 tablet by ity of tablet 00:00: mouth at [place] [address] bedtime. [facility] rosuvastati Yes [id number] 10mg Take 1 Univers n 10 mg 6-08 tablet by ity of tablet 00:00: mouth at [place] [address] bedtime. Medical Branch water for 2021- No PRN, Univers irrigation 03-02 Starting ity of irrigation 14:20: 15:50 [place] solution 00 :27 03/02/22 at Medica l 0920, Branch Until Tue03/02/22 at 1050, Routine, Intra-op simethicone 2021- No PRN, Unive rs (GAS RELIEF 03-02 Starting ity of (SIMETHICON 14:20: 15:50 on Tue Emanuel as E)) 40 00 :27 03/02/22 at Medical mg/0.6 mL 0920, Branch drops Until Tue03/02/22 at 1050, Routine, Intra-op lactated 0 2021- No 1000mL at 42 [facility] rs ringers IV 6-07 06-07 mL/hr, ity of infusion 12:45: 12:59 1,000 mL, Emanuel as 1,000 mL 00 :00 IV Medical Infusion, Branch ONCE, 1 dose, On Tue03/02/22 at 0745, Routine, DSU Pre-op lactated 0 2021- No 1000mL at 42 [facility] rs ringers IV 6-07 06-07 mL/hr, ity of infusion 12:45: 12:59 1,000 mL, E[place] as 1,000 mL 00 :00 IV Medical Infusion, Branch ONCE, 1 dose, On Tue03/02/22 at 0745, Routine, DSU Pre-op FOLIC ACID Yes Take by [facility] vers ORAL 6-07 mouth ity of 11:23: daily. [place] [address] Medical Branch MULTIVIT Yes Take by [facility] &MINERALS/F 6- mouth. ity of ERROUS FUM 11:23: [place] (MULTI 09 Medical VITAMIN Branch ORAL) METHYLCELLU Yes [facility] LOSE (FIBER 6-07 ity of THERAPY 11:23: [place] MISC) Medical Branch DOCUSATE Yes Take by [facility] SODIUM 6-07 mouth. ity of (COLACE 11:23: [place] ORAL) 09 Medical Branch vitamin C Yes 1000mg Take 1,000 Univers with derrell 6-07 mg by ity of hips 11:23: mouth [place] (VITAMIN C) 09 daily. Medica l 1,000 mg Branch tablet cholecalcif Yes 1000U Take 1,000 Univers edmar, 6-07 Units by ity of vitamin D3, 11:23: mouth [place] (VITAMIN 09 daily. Medical D3) 1,000 Branch unit tablet CRANBERRY Yes Take by [facility] FRUIT 6-07 mouth ity of EXTRACT 11:23: daily. [place] (CRANBERRY 09 Medical ORAL) Branch CALCIUM Yes Take by [facility] s ORAL 6-07 mouth ity of 11:23: daily. [place] [facility] DOCOSAHEXAN Yes 1000mg Take 1,000 Univers OIC 6-07 mg by ity of ACID/EPA 11:23: mouth [place] (FISH OIL 09 daily. Medical ORAL) Branch BIOTIN ORAL Yes Take by Un jerrod 6-07 mouth. ity of 11:23: Medical Branch FOLIC ACID Yes Take by Uni vers ORAL 6-07 mouth ity of 11:23: daily. [place] [facility] MULTIVIT Yes Take by Unive rs &MINERALS/F 6-07 mouth. ity of ERROUS FUM 11:23: [place] (MULTI 09 Medical VITAMIN Branch ORAL) METHYLCELLU Yes Univer s LOSE (FIBER 6-07 ity of THERAPY 11:23: [place] MISC) 09 Medical Branch DOCUSATE Yes Take by Unive rs SODIUM 6-07 mouth. ity of (COLACE 11:23: [place] ORAL) 09 Medical Branch vitamin C Yes 1000mg Take 1,000 Univers with derrell 6-07 mg by ity of hips 11:23: mouth [place] (VITAMIN C) 09 daily. Medica l 1,000 mg Branch tablet cholecalcif Yes 1000U Take 1,000 Univers edmar, 6-07 Units by ity of vitamin D3, 11:23: mouth [place] (VITAMIN 09 daily. Medical D3) 1,000 Branch unit tablet CRANBERRY Yes Take by Univ ers FRUIT 6-07 mouth ity of EXTRACT 11:23: daily. [place] (CRANBERRY 09 Medical ORAL) Branch CALCIUM Yes Take by Univer s ORAL 6-07 mouth ity of 11:23: daily. Medical Branch DOCOSAHEXAN Yes 1000mg Take 1,000 Univers OIC 6-07 mg by ity of ACID/EPA 11:23: mouth [place] (FISH OIL 09 daily. Medical ORAL) Branch BIOTIN ORAL Yes Take by Un jerrod 6-07 mouth. ity of 11:23: Medical Branch FOLIC ACID Yes Take by Uni vers ORAL 6-07 mouth ity of 11:23: daily. [place] [facility] MULTIVIT Yes Take by Unive rs &MINERALS/F 6-07 mouth. ity of ERROUS FUM 11:23: [place] (MULTI 09 Medical VITAMIN Branch ORAL) METHYLCELLU 2022-0 Yes Univer s LOSE (FIBER 6-07 ity of THERAPY 11:23: [facility]) 09 Medical Branch DOCUSATE Yes Take by Unive rs SODIUM 6-07 mouth. ity of (COLACE 11:23: [place] ORAL) 09 Medical Branch vitamin C Yes 1000mg Take 1,000 Univers with derrell 6-07 mg by ity of hips 11:23: mouth [place] (VITAMIN C) 09 daily. Medica l 1,000 mg Branch tablet cholecalcif Yes 1000U Take 1,000 Univers edmar, 6-07 Units by ity of vitamin D3, 11:23: mouth [place] (VITAMIN 09 daily. Medical D3) 1,000 Branch unit tablet CRANBERRY Yes Take by Univ ers FRUIT 6-07 mouth ity of EXTRACT 11:23: daily. [place] (CRANBERRY 09 Medical ORAL) Branch CALCIUM [facility]07 mouth ity of 11:23: daily. [place] [facility] DOCOSAHEXAN Yes 1000mg Take 1,000 Univers OIC 6-07 mg by ity of ACID/EPA 11:23: mouth [place] (FISH OIL 09 daily. Medical ORAL) Branch BIOTIN ORAL Yes Take by Un jerrod 6-07 mouth. ity of 11:23: [place] [facility] FOLIC ACID Yes Take by Uni vers ORAL 6-07 mouth ity of 11:23: daily. [place] [facility] MULTIVIT Yes Take by [facility] [place] rs &MINERALS/F 6-07 mouth. ity of ERROUS FUM 11:23: [place] (MULTI 09 Medical VITAMIN Branch ORAL) METHYLCELLU Yes Univer s LOSE (FIBER 6-07 ity of THERAPY 11:23: [facility]) 09 Medical Branch DOCUSATE Yes Take by Unive rs SODIUM 6-07 mouth. ity of (COLACE 11:23: [place] ORAL) 09 Medical Branch vitamin C Yes 1000mg Take 1,000 Univers with derrell 6-07 mg by ity of hips 11:23: mouth [place] (VITAMIN C) 09 daily. Medica l 1,000 mg Branch tablet cholecalcif Yes 1000U Take 1,000 Univers edmar, 6-07 Units by ity of vitamin D3, 11:23: mouth [place] (VITAMIN 09 daily. Medical D3) 1,000 Branch unit tablet CRANBERRY Yes Take by [facility] [place] ers FRUIT 6-07 mouth ity of EXTRACT 11:23: daily. [place] (CRANBERRY Medical ORAL) Branch CALCIUM Yes Take by Univer s ORAL 6-07 mouth ity of 11:23: daily. [place] [facility] DOCOSAHEXAN Yes 1000mg Take 1,000 Univers OIC 6-07 mg by ity of ACID/EPA 11:23: mouth [place] (FISH OIL 09 daily. Medical ORAL) Branch BIOTIN ORAL Yes Take by Un jerrod 6-07 mouth. ity of 11:23: Medical Branch FOLIC ACID Yes Take by Uni vers ORAL 6-07 mouth ity of 11:23: daily. [place] [facility] MULTIVIT Yes Take by [facility] [place] &MINERALS/F 6-07 mouth. ity of ERROUS FUM 11:23: [place] (MULTI 09 Medical VITAMIN Branch ORAL) METHYLCELLU Yes [facility] s LOSE (FIBER 6-07 ity of THERAPY 11:23: [place] MISC) 09 Medical Branch DOCUSATE Yes Take by [facility] rs SODIUM 6-07 mouth. ity of (COLACE 11:23: [place] ORAL) 09 Medical Branch vitamin C Yes 1000mg Take 1,000 Univers with derrell 6-07 mg by ity of hips 11:23: mouth [place] (VITAMIN C) 09 daily. Medica l 1,000 mg Branch tablet cholecalcif Yes 1000U Take 1,000 Univers emdar, 6-07 Units by ity of vitamin D3, 11:23: mouth [place] (VITAMIN 09 daily. Medical D3) 1,000 Branch unit tablet CRANBERRY Yes Take by [facility] [place] ers FRUIT 6-07 mouth ity of EXTRACT 11:23: daily. [place] (CRANBERRY Medical ORAL) Branch CALCIUM Yes Take by Univer s ORAL 6-07 mouth ity of 11:23: daily. [place] [facility] DOCOSAHEXAN Yes 1000mg Take 1,000 Univers OIC 6-07 mg by ity of ACID/EPA 11:23: mouth [place] (FISH OIL 09 daily. Medical ORAL) Branch BIOTIN ORAL Yes Take by Un jerrod 6-07 mouth. ity of 11:23: Medical Branch FOLIC ACID Yes Take by Uni vers ORAL 6-07 mouth ity of 11:23: daily. [place] [facility] MULTIVIT Yes Take by Unive rs &MINERALS/F 6-07 mouth. ity of ERROUS FUM 11:23: [place] (MULTI 09 Medical VITAMIN Branch ORAL) METHYLCELLU 0 Yes Univer s LOSE (FIBER 6-07 ity of THERAPY 11:23: [facility]) 09 Medical Branch DOCUSATE Yes Take by Unive rs SODIUM 6-07 mouth. ity of (COLACE 11:23: [place] ORAL) 09 Medical Branch vitamin C Yes 1000mg Take 1,000 Univers with derrell 6-07 mg by ity of hips 11:23: mouth [place] (VITAMIN C) 09 daily. Medica l 1,000 mg Branch tablet cholecalcif Yes 1000U Take 1,000 Univers edmar, 6-07 Units by ity of vitamin D3, 11:23: mouth [place] (VITAMIN 09 daily. Medical D3) 1,000 Branch unit tablet CRANBERRY Yes Take by Univ ers FRUIT 6-07 mouth ity of EXTRACT 11:23: daily. [place] (CRANBERRY 09 Medical ORAL) Branch CALCIUM Yes Take by Univer s ORAL 6-07 mouth ity of 11:23: daily. [place] [facility] DOCOSAHEXAN Yes 1000mg Take 1,000 Univers OIC 6-07 mg by ity of ACID/EPA 11:23: mouth [place] (FISH OIL 09 daily. Medical ORAL) Branch BIOTIN ORAL Yes Take by Un jerrod 6-07 mouth. ity of 11:23: Medical Branch FOLIC ACID Yes Take by Uni vers ORAL 6-07 mouth ity of 11:23: daily. [place] [facility] MULTIVIT Yes Take by Unive rs &MINERALS/F 6-07 mouth. ity of ERROUS FUM 11:23: [place] (MULTI 09 Medical VITAMIN Branch ORAL) METHYLCELLU 0 Yes Univer s LOSE (FIBER 6-07 ity of THERAPY 11:23: [facility]) 09 Medical Branch DOCUSATE 2022-0 Yes Take by Unive rs SODIUM 6-07 mouth. ity of (COLACE 11:23: [place] ORAL) 09 Medical Branch vitamin C Yes 1000mg Take 1,000 Univers with derrell 6-07 mg by ity of hips 11:23: mouth [place] (VITAMIN C) 09 daily. Medica l 1,000 mg Branch tablet cholecalcif Yes 1000U Take 1,000 [facility] edmar, 6-07 Units by ity of vitamin D3, 11:23: mouth [place] (VITAMIN 09 daily. Medical D3) 1,000 Branch unit tablet CRANBERRY Yes Take by Univ ers FRUIT 6-07 mouth ity of EXTRACT 11:23: daily. [place] (CRANBERRY 09 Medical ORAL) Branch CALCIUM Yes Take by Univer s ORAL 6-07 mouth ity of 11:23: daily. [place] [facility] DOCOSAHEXAN Yes 1000mg Take 1,000 [facility] OIC 6-07 mg by ity of ACID/EPA 11:23: mouth [place] (FISH OIL 09 daily. Medical ORAL) Branch BIOTIN ORAL Yes Take by Un jerrod 6-07 mouth. ity of 11:23: [place] [address] Medical Branch FOLIC ACID Yes Take by Uni vers ORAL 6-07 mouth ity of 11:23: daily. [place] [address] Medical Branch MULTIVIT Yes Take by Unive rs &MINERALS/F 6-07 mouth. ity of ERROUS FUM 11:23: [place] (MULTI 09 Medical VITAMIN Branch ORAL) METHYLCELLU Yes Univer s LOSE (FIBER 6-07 ity of THERAPY 11:23: [place] MIS) 09 Medical Branch DOCUSATE Yes Take by Unive rs SODIUM 6-07 mouth. ity of (COLACE 11:23: [place] ORAL) 09 Medical Branch vitamin C Yes 1000mg Take 1,000 [facility] with derrell 6-07 mg by ity of hips 11:23: mouth [place] (VITAMIN C) 09 daily. Medica l 1,000 mg Branch tablet cholecalcif Yes 1000U Take 1,000 [facility] edmar, 6-07 Units by ity of vitamin D3, 11:23: mouth [place] (VITAMIN 09 daily. Medical D3) 1,000 Branch unit tablet CRANBERRY Yes Take by [facility] [place] ers FRUIT 607 mouth ity of EXTRACT 11:23: daily. [place] (CRANBERRY Medical ORAL) Branch CALCIUM Yes Take by Univer s ORAL 6-07 mouth ity of 11:23: daily. [place] [facility] DOCOSAHEXAN Yes 1000mg Take 1,000 [facility] OIC 6-07 mg by ity of ACID/EPA 11:23: mouth [place] (FISH OIL 09 daily. Medical ORAL) Branch BIOTIN ORAL Yes Take by Un jerrod 6-07 mouth. ity of 11:23: Medical Branch FOLIC ACID Yes Take by Uni vers ORAL 6- mouth ity of 11:23: daily. [place] [facility] MULTIVIT Yes Take by [facility] [place] rs &MINERALS/F 6-07 mouth. ity of ERROUS FUM 11:23: [place] (MULTI 09 Medical VITAMIN Branch ORAL) METHYLCELLU Yes [facility] s LOSE (FIBER 6-07 ity of THERAPY 11:23: [place] MISC) 09 Medical Branch DOCUSATE Yes Take by [facility] [place] rs SODIUM 6-07 mouth. ity of (COLACE 11:23: [place] ORAL) 09 Medical Branch vitamin C Yes 1000mg Take 1,000 [facility] with derrell 6-07 mg by ity of hips 11:23: mouth [place] (VITAMIN C) 09 daily. Medica l 1,000 mg Branch tablet cholecalcif Yes 1000U Take 1,000 [facility] ed[place], 6-07 Units by ity of vitamin D3, 11:23: mouth [place] (VITAMIN 09 daily. Medical D3) 1,000 Branch unit tablet CRANBERRY Yes Take by [facility] [place] ers FRUIT 6-07 mouth ity of EXTRACT 11:23: daily. [place] (CRANBERRY Medical ORAL) Branch CALCIUM Yes [facility] by [facility] [place] mouth ity of 11:23: daily. [place] [facility] DOCOSAHEXAN Yes 1000mg Take 1,000 [facility] OIC 6-07 mg by ity of ACID/EPA 11:23: mouth [place] (FISH OIL 09 daily. Medical ORAL) Branch BIOTIN ORAL Yes Take by Un jerrod 6-07 mouth. ity of 11:23: [place] [address] Medical Branch FOLIC ACID Yes Take by Uni vers ORAL 6-07 mouth ity of 11:23: daily. [place] [address] Medical Branch MULTIVIT Yes Take by Unive rs &MINERALS/F 6-07 mouth. ity of ERROUS FUM 11:23: [place] ([place] [address] Medical VITAMIN Branch ORAL) METHYLCELLU Yes Univer s LOSE (FIBER 6-07 ity of THERAPY 11:23: [facility]) 09 Medical Branch DOCUSATE Yes Take by Unive rs SODIUM 6-07 mouth. ity of (COLACE 11:23: [place] ORAL) 09 Medical Branch vitamin C Yes 1000mg Take 1,000 [facility] with derrell 6-07 mg by ity of hips 11:23: mouth [place] (VITAMIN C) 09 daily. Medica l 1,000 mg Branch tablet cholecalcif Yes 1000U Take 1,000 [facility] edmar, 6-07 Units by ity of vitamin D3, 11:23: mouth [place] (VITAMIN 09 daily. Medical D3) 1,000 Branch unit tablet CRANBERRY Yes Take by Univ ers FRUIT 6-07 mouth ity of EXTRACT 11:23: daily. [place] (CRANBERRY Medical ORAL) Branch CALCIUM Yes Take by Univer s ORAL 6-07 mouth ity of 11:23: daily. [place] [address] Medical Branch DOCOSAHEXAN Yes 1000mg Take 1,000 [facility] OIC 6-07 mg by ity of ACID/EPA 11:23: mouth [place] (FISH OIL 09 daily. Medical ORAL) Branch BIOTIN ORAL Yes Take by Un jerrod 6-07 mouth. ity of 11:23: [place] [address] Medical Branch FOLIC ACID Yes Take by Uni vers ORAL 6-07 mouth ity of 11:23: daily. [place] [address] Medical Branch MULTIVIT Yes Take by Unive rs &MINERALS/F 6-07 mouth. ity of ERROUS FUM 11:23: [place] ([place] [address] Medical VITAMIN Branch ORAL) METHYLCELLU Yes Univer s LOSE (FIBER 6-07 ity of THERAPY 11:23: [facility]) 09 Medical Branch DOCUSATE Yes Take by Unive rs SODIUM 6-07 mouth. ity of (COLACE 11:23: [place] ORAL) 09 Medical Branch vitamin C Yes 1000mg Take 1,000 [facility] with derrell 6-07 mg by ity of hips 11:23: mouth [place] (VITAMIN C) 09 daily. Medica l 1,000 mg Branch tablet cholecalcif Yes 1000U Take 1,000 [facility] edmar, 6-07 Units by ity of vitamin D3, 11:23: mouth [place] (VITAMIN 09 daily. Medical D3) 1,000 Branch unit tablet CRANBERRY Yes Take by [facility] [place] ers FRUIT 6-07 mouth ity of EXTRACT 11:23: daily. [place] (CRANBERRY Medical ORAL) Branch CALCIUM Yes Take by Univer s ORAL 6-07 mouth ity of 11:23: daily. [place] [facility] DOCOSAHEXAN Yes 1000mg Take 1,000 [facility] OIC 6-07 mg by ity of ACID/EPA 11:23: mouth [place] (FISH OIL 09 daily. Medical ORAL) Branch BIOTIN ORAL Yes Take by Un jerrod 6-07 mouth. ity of 11:23: Medical Branch FOLIC ACID Yes Take by Uni vers ORAL 6-07 mouth ity of 11:23: daily. [place] 09 Medical Branch MULTIVIT Yes Take by [facility] [place] &MINERALS/F 6-07 mouth. ity of ERROUS FUM 11:23: [place] (MULTI 09 Medical VITAMIN Branch ORAL) METHYLCELLU Yes [facility] [place] (FIBER 6-07 ity of THERAPY 11:23: [place] MISC) 09 Medical Branch DOCUSATE Yes Take by [facility] [place] SODIUM 6-07 mouth. ity of (COLACE 11:23: [place] ORAL) 09 Medical Branch vitamin C Yes 1000mg Take 1,000 [facility] with derrell 6-07 mg by ity of hips 11:23: mouth [place] (VITAMIN C) 09 daily. Medica l 1,000 mg Branch tablet cholecalcif Yes 1000U Take 1,000 [facility] edmar, 6-07 Units by ity of vitamin D3, 11:23: mouth [place] (VITAMIN 09 daily. Medical D3) 1,000 Branch unit tablet CRANBERRY Yes Take by Univ ers FRUIT 6-07 mouth ity of EXTRACT 11:23: daily. [place] (CRANBERRY Medical ORAL) Branch CALCIUM Yes Take by Univer s ORAL 6-07 mouth ity of 11:23: daily. [place] [facility] DOCOSAHEXAN Yes 1000mg Take 1,000 [facility] OIC 6-07 mg by ity of ACID/EPA 11:23: mouth [place] (FISH OIL 09 daily. Medical ORAL) Branch BIOTIN ORAL Yes Take by Un jerrod 6-07 mouth. ity of 11:23: [place] [facility] FOLIC ACID Yes Take by Uni vers ORAL 6-07 mouth ity of 11:23: daily. [place] [facility] MULTIVIT Yes Take by [facility] [place] &MINERALS/F 6-07 mouth. ity of ERROUS FUM 11:23: [place] (MULTI 09 Medical VITAMIN Branch ORAL) METHYLCELLU Yes [facility] [place] ([facility]IBER 6-07 ity of THERAPY 11:23: [place] MISC) Medical Branch DOCUSATE Yes Take by [facility] [place] SODIUM 6-07 mouth. ity of (COLACE 11:23: [place] ORAL) 09 Medical Branch vitamin C Yes 1000mg Take 1,000 [facility] with derrell 6-07 mg by ity of hips 11:23: mouth [place] (VITAMIN C) 09 daily. Medica l 1,000 mg Branch tablet cholecalcif Yes 1000U Take 1,000 [facility] edmar, 6-07 Units by ity of vitamin D3, 11:23: mouth [place] (VITAMIN 09 daily. Medical D3) 1,000 Branch unit tablet CRANBERRY Yes Take by Univ ers FRUIT 6-07 mouth ity of EXTRACT 11:23: daily. [place] (CRAN[place]ERRY Medical ORAL) Branch CALCIUM Yes Take by Univer s ORAL 6-07 mouth ity of 11:23: daily. [place] [facility] DOCOSAHEXAN Yes 1000mg Take 1,000 [facility] OIC 6-07 mg by ity of ACID/EPA 11:23: mouth [place] (FISH OIL 09 daily. Medical ORAL) Branch BIOTIN ORAL Yes Take by Un jerrod 6-07 mouth. ity of 11:23: [place] [facility] Branch FOLIC ACID Yes Take by Uni vers ORAL 6-07 mouth ity of 11:23: daily. [place] [address] Medical Branch MULTIVIT Yes Take by Unive rs &MINERALS/F 6-07 mouth. ity of ERROUS FUM 11:23: [place] (MULTI 09 Medical VITAMIN Branch ORAL) METHYLCELLU 0 Yes Univer s LOSE (FIBER 6-07 ity of THERAPY 11:23: [facility]) 09 Medical Branch DOCUSATE Yes Take by Unive rs SODIUM 6-07 mouth. ity of (COLACE 11:23: [place] ORAL) 09 Medical Branch vitamin C Yes 1000mg Take 1,000 [facility] with derrell 6-07 mg by ity of hips 11:23: mouth [place] (VITAMIN C) 09 daily. Medica l 1,000 mg Branch tablet cholecalcif Yes 1000U Take 1,000 [facility] edmar, 6-07 Units by ity of vitamin D3, 11:23: mouth [place] (VITAMIN 09 daily. Medical D3) 1,000 Branch unit tablet CRANBERRY Yes Take by Univ ers FRUIT 6-07 mouth ity of EXTRACT 11:23: daily. [place] (CRANBERRY 09 Medical ORAL) Branch CALCIUM Yes Take by Univer s ORAL 6-07 mouth ity of 11:23: daily. [place] [facility] Branch DOCOSAHEXAN Yes 1000mg Take 1,000 [facility] OIC 6-07 mg by ity of ACID/EPA 11:23: mouth [place] (FISH OIL 09 daily. Medical ORAL) Branch BIOTIN ORAL Yes Take by Un jerrod 6-07 mouth. ity of 11:23: [place] [address] Medical Branch FOLIC ACID Yes Take by Uni vers ORAL 6-07 mouth ity of 11:23: daily. [place] [address] Medical Branch MULTIVIT Yes Take by Unive rs &MINERALS/F 6-07 mouth. ity of ERROUS FUM 11:23: [place] (MULTI 09 Medical VITAMIN Branch ORAL) METHYLCELLU 0 Yes Univer s LOSE (FIBER 6-07 ity of THERAPY 11:23: [facility]) 09 Medical Branch DOCUSATE Yes Take by Unive rs SODIUM 6-07 mouth. ity of (COLACE 11:23: [place] ORAL) 09 Medical Branch vitamin C Yes 1000mg Take 1,000 [facility] with derrell 6-07 mg by ity of hips 11:23: mouth [place] (VITAMIN C) 09 daily. Medica l 1,000 mg Branch tablet cholecalcif 0 Yes 1000U Take 1,000 [facility] edmar, 6-07 Units by ity of vitamin D3, 11:23: mouth [place] (VITAMIN 09 daily. Medical D3) 1,000 Branch unit tablet CRANBERRY Yes Take by [facility] [place] ers FRUIT 6 mouth ity of EXTRACT 11:23: daily. [place] (CRANBERRY 09 Medical ORAL) Branch CALCIUM Yes Take by [facility] [place] 6 mouth ity of 11:23: daily. [place] [facility] DOCOSAHEXAN Yes 1000mg Take 1,000 [facility] OIC 6-07 mg by ity of ACID/EPA 11:23: mouth [place] (FISH OIL 09 daily. Medical ORAL) Branch BIOTIN ORAL Yes Take by Un jerrod 6 mouth. ity of 11:23: [place] [address] Medical Branch FOLIC ACID Yes Take by [facility] vers ORAL 6 mouth ity of 11:58: daily. [place] [address] Medical Branch MULTIVIT Yes Take by [facility] rs &MINERALS/F 6- mouth. ity of ERROUS FUM 11:58: [place] (MULTI 16 Medical VITAMIN Branch ORAL) METHYLCELLU Yes [facility] LOSE (FIBER 6- ity of THERAPY 11:58: [facility]) 16 Medical Branch DOCUSATE Yes Take by [facility] rs SODIUM 6- mouth. ity of (COLACE 11:58: [place] ORAL) 16 Medical Branch vitamin C Yes 1000mg Take 1,000 [facility] with derrell 6-01 mg by ity of hips 11:58: mouth [place] (VITAMIN C) 16 daily. Medica l 1,000 mg Branch tablet cholecalcif 0 Yes 1000U Take 1,000 [facility] edmar, 6-01 Units by ity of vitamin D3, 11:58: mouth [place] (VITAMIN 16 daily. Medical D3) 1,000 Branch unit tablet CRANBERRY 0 Yes Take by [facility] [place] ers FRUIT 6- mouth ity of EXTRACT 11:58: daily. [place] ([place] 16 Medical ORAL) Branch CALCIUM Yes Take by Univer s ORAL 6-01 mouth ity of 11:58: daily. [place] 16 Medical Branch DOCOSAHEXAN 0 Yes 1000mg Take 1,000 [facility] OIC 6-01 mg by ity of ACID/EPA 11:58: mouth [place] (FISH OIL 16 daily. Medical ORAL) Branch BIOTIN ORAL 2021-0 Yes Take by Un jerrod 6-01 mouth. ity of 11:58: [place] 16 [facility] Branch metformin 2021-0 Yes [id number] 500mg Take 1 U nivers ER 500 mg 5-31 tablet by ity o f 24 hr 00:00: mouth [place] tablet 00 daily with Medical breakfast. Branch STOP REGULAR METFORMIN. metformin 0 Yes [id number] 500mg Take 1 U nivers ER 500 mg 5-31 tablet by ity o f 24 hr 00:00: mouth [place] tablet 00 daily with Medical breakfast. Branch STOP REGULAR METFORMIN. metformin 0 Yes [id number] 500mg Take 1 U nivers ER 500 mg 5-31 tablet by ity o f 24 hr 00:00: mouth [place] tablet 00 daily with Medical breakfast. [place] STOP REGULAR METFORMIN. metformin 0 Yes [id number] 500mg Take 1 U nivers ER 500 mg 5-31 tablet by ity o f 24 hr 00:00: mouth [place] tablet 00 daily with Medical breakfast. Branch STOP REGULAR METFORMIN. metformin 0 Yes [id number] 500mg Take 1 U nivers ER 500 mg 5-31 tablet by ity o f 24 hr 00:00: mouth [place] tablet 00 daily with Medical breakfast. Branch STOP REGULAR METFORMIN. metformin 2021-0 Yes [id number] 500mg Take 1 U nivers ER 500 mg 5-31 tablet by ity o f 24 hr 00:00: mouth [place] tablet 00 daily with Medical breakfast. Branch STOP REGULAR METFORMIN. metformin 2021-0 Yes [id number] 500mg Take 1 U nivers ER 500 mg 5-31 tablet by ity o f 24 hr 00:00: mouth [place] tablet 00 daily with Medical breakfast. Branch STOP REGULAR METFORMIN. metformin 2021-0 Yes [id number] 500mg Take 1 U nivers ER 500 mg 5-31 tablet by ity o f 24 hr 00:00: mouth [place] tablet 00 daily with Medical breakfast. Branch STOP REGULAR METFORMIN. metformin 2021-0 Yes [id number] 500mg Take 1 U nivers ER 500 mg 5-31 tablet by ity o f 24 hr 00:00: mouth [place] tablet 00 daily with Medical breakfast. Branch STOP REGULAR METFORMIN. metformin 2021-0 Yes [id number] 500mg Take 1 U nivers ER 500 mg 5-31 tablet by ity o f 24 hr 00:00: mouth [place] tablet 00 daily with Medical breakfast. Branch STOP REGULAR METFORMIN. metformin 2021-0 Yes [id number] 500mg Take 1 U nivers ER 500 mg 5-31 tablet by ity o f 24 hr 00:00: mouth [place] tablet 00 daily with Medical breakfast. Branch STOP REGULAR METFORMIN. metformin 2021-0 Yes [id number] 500mg Take 1 U nivers ER 500 mg 5-31 tablet by ity o f 24 hr 00:00: mouth [place] tablet 00 daily with Medical breakfast. Branch STOP REGULAR METFORMIN. metformin 2021-0 Yes [id number] 500mg Take 1 U nivers ER 500 mg 5-31 tablet by ity o f 24 hr 00:00: mouth [place] tablet 00 daily with Medical breakfast. Branch STOP REGULAR METFORMIN. metformin 2021-0 Yes [id number] 500mg Take 1 U nivers ER 500 mg 5-31 tablet by ity o f 24 hr 00:00: mouth [place] tablet 00 daily with Medical breakfast. Branch STOP REGULAR METFORMIN. metformin 2021-0 Yes [id number] 500mg Take 1 U nivers ER 500 mg 5-31 tablet by ity o f 24 hr 00:00: mouth [place] tablet 00 daily with Medical breakfast. Branch STOP REGULAR METFORMIN. metformin 2021-0 Yes [id number] 500mg Take 1 U nivers ER 500 mg 5-31 tablet by ity o f 24 hr 00:00: mouth [place] tablet 00 daily with Medical breakfast. Branch STOP REGULAR METFORMIN. ibuprofen 2021-0 Yes [id number] 600mg Take 1 [facility] 600 mg 5-19 [id number] tablet by ity of tablet 00:00: mouth [place] 00 every 6 Medical (six) Branch hours as needed for Pain (scale 4-6). ibuprofen 2021-0 Yes [id number] 600mg Take 1 [facility] 600 mg 5-19 [id number] tablet by ity of tablet 00:00: mouth [place] 00 every 6 Medical (six) Branch hours as needed for Pain (scale 4-6). ibuprofen 2021-0 Yes [id number] 600mg Take 1 [facility] 600 mg 5-19 [id number] tablet by ity of tablet 00:00: mouth [place] 00 every 6 Medical (six) Branch hours as needed for Pain (scale 4-6). ibuprofen 2022-0 Yes [id number] 600mg Take 1 [facility] 600 mg 5-19 [id number] tablet by ity of tablet 00:00: mouth [place] 00 every 6 Medical (six) Branch hours as needed for Pain (scale 4-6). ibuprofen 2022-0 Yes [id number] 600mg Take 1 [facility] 600 mg 5-19 [id number] tablet by ity of tablet 00:00: mouth [place] 00 every 6 Medical (six) Branch hours as needed for Pain (scale 4-6). ibuprofen 2022-0 Yes [id number] 600mg Take 1 [facility] 600 mg 5-19 [id number] tablet by ity of tablet 00:00: mouth [place] 00 every 6 Medical (six) Branch hours as needed for Pain (scale 4-6). ibuprofen 2022-0 Yes [id number] 600mg Take 1 [facility] 600 mg 5-19 [id number] tablet by ity of tablet 00:00: mouth [place] 00 every 6 Medical (six) Branch hours as needed for Pain (scale 4-6). ibuprofen 2022-0 Yes [id number] 600mg Take 1 [facility] 600 mg 5-19 [id number] tablet by ity of tablet 00:00: mouth [place] 00 every 6 Medical (six) Branch hours as needed for Pain (scale 4-6). ibuprofen 2022-0 Yes [id number] 600mg Take 1 [facility] 600 mg 5-19 [id number] tablet by ity of tablet 00:00: mouth [place] 00 every 6 Medical (six) Branch hours as needed for Pain (scale 4-6). ibuprofen 2022-0 Yes [id number] 600mg Take 1 [facility] 600 mg 5-19 [id number] tablet by ity of tablet 00:00: mouth [place] 00 every 6 Medical (six) Branch hours as needed for Pain (scale 4-6). ibuprofen 2022-0 Yes [id number] 600mg Take 1 [facility] 600 mg 5-19 [id number] tablet by ity of tablet 00:00: mouth [place] 00 every 6 Medical (six) Branch hours as needed for Pain (scale 4-6). ibuprofen 2022-0 Yes [id number] 600mg Take 1 [facility] 600 mg 5-19 [id number] tablet by ity of tablet 00:00: mouth [place] 00 every 6 Medical (six) Branch hours as needed for Pain (scale 4-6). ibuprofen 2022-0 Yes [id number] 600mg Take 1 [facility] 600 mg 5-19 [id number] tablet by ity of tablet 00:00: mouth [place] 00 every 6 Medical (six) Branch hours as needed for Pain (scale 4-6). ibuprofen 2022-0 Yes [id number] 600mg Take 1 [facility] 600 mg 5-19 [id number] tablet by ity of tablet 00:00: mouth [place] 00 every 6 Medical (six) Branch hours as needed for Pain (scale 4-6). ibuprofen 2022-0 Yes [id number] 600mg Take 1 [facility] 600 mg 5-19 [id number] tablet by ity of tablet 00:00: mouth [place] 00 every 6 Medical (six) Branch hours as needed for Pain (scale 4-6). ibuprofen 2022-0 Yes [id number] 600mg Take 1 [facility] 600 mg 5-19 [id number] tablet by ity of tablet 00:00: mouth [place] 00 every 6 Medical (six) Branch hours as needed for Pain (scale 4-6). topiramate 2022-0 Yes [id number] 50mg Take 2 [facility] 25 mg 5-16 tablets by ity of tablet 00:00: mouth 2 (two) Medical times Branch daily. topiramate 2022-0 Yes [id number] 50mg Take 2 [facility] 25 mg 5-16 tablets by ity of tablet 00:00: mouth 2 (two) Medical times Branch daily. topiramate 2022-0 Yes [id number] 50mg Take 2 [facility] 25 mg 5-16 tablets by ity of tablet 00:00: mouth 2 (two) Medical times Branch daily. topiramate 2022-0 Yes [id number] 50mg Take 2 [facility] 25 mg 5-16 tablets by ity of tablet 00:00: mouth 2 (two) Medical times Branch daily. topiramate 2022-0 Yes [id number] 50mg Take 2 [facility] 25 mg 5-16 tablets by ity of tablet 00:00: mouth 2 (two) Medical times Branch daily. SUMAtriptan 2022-0 Yes [id number] 50mg Take 1 [facility] 50 mg 5-16 tablet by ity of tablet 00:00: mouth as [place] 00 needed for Medical Migraine. Branch topiramate 2022-0 Yes [id number] 50mg Take 2 [facility] 25 mg 5-16 tablets by ity of tablet 00:00: mouth 2 [place] (two) Medical times Branch daily. SUMAtriptan 2021-0 Yes [id number] 50mg Take 1 [facility] 50 mg 5-16 tablet by ity of tablet 00:00: mouth as [place] 00 needed for Medical Migraine. Branch topiramate 2021-0 Yes [id number] 50mg Take 2 [facility] 25 mg 5-16 tablets by ity of tablet 00:00: mouth 2 [place] (two) Medical times Branch daily. SUMAtriptan 2021-0 Yes [id number] 50mg Take 1 [facility] 50 mg 5-16 tablet by ity of tablet 00:00: mouth as [place] 00 needed for Medical Migraine. Branch topiramate 2021-0 Yes [id number] 50mg Take 2 [facility] 25 mg 5-16 tablets by ity of tablet 00:00: mouth 2 (two) Medical times Branch daily. SUMAtriptan 2021-0 Yes [id number] 50mg Take 1 [facility] 50 mg 5-16 tablet by ity of tablet 00:00: mouth as [place] 00 needed for Medical Migraine. Branch topiramate 2021-0 Yes [id number] 50mg Take 2 [facility] 25 mg 5-16 tablets by ity of tablet 00:00: mouth 2 (two) Medical times Branch daily. SUMAtriptan 2-0 Yes [id number] 50mg Take 1 [facility] 50 mg 5-16 tablet by ity of tablet 00:00: mouth as [place] 00 needed for Medical Migraine. Branch topiramate 2021-0 Yes [id number] 50mg Take 2 [facility] 25 mg 5-16 tablets by ity of tablet 00:00: mouth 2 [place] (two) Medical times Branch daily. SUMAtriptan 2-0 Yes [id number] 50mg Take 1 [facility] 50 mg 5-16 tablet by ity of tablet 00:00: mouth as [place] 00 needed for Medical Migraine. Branch topiramate 2-0 Yes [id number] 50mg Take 2 [facility] 25 mg 5-16 tablets by ity of tablet 00:00: mouth 2 00 (two) Medical times Branch daily. topiramate 2-0 Yes [id number] 50mg Take 2 [facility] 25 mg 5-16 tablets by ity of tablet 00:00: mouth 2 00 (two) Medical times Branch daily. topiramate 2021-0 Yes [id number] 50mg Take 2 [facility] 25 mg 5-16 tablets by ity of tablet 00:00: mouth 2 00 (two) Medical times Branch daily. topiramate 2021-0 Yes [id number] 50mg Take 2 [facility] 25 mg 5-16 tablets by ity of tablet 00:00: mouth 2 (two) Medical times Branch daily. topiramate 2021-0 Yes [id number] 50mg Take 2 [facility] 25 mg 5-16 tablets by ity of tablet 00:00: mouth 2 (two) Medical times Branch daily. topiramate 2021-0 Yes [id number] 50mg Take 2 [facility] 25 mg 5-16 tablets by ity of tablet 00:00: mouth 2 (two) Medical times Branch daily. SUMAtriptan 2021- No [id number] 50mg Take 1 [facility] 50 mg 5-16 06-17 tablet by ity of tablet 00:00: 00:00 mouth as [place] 00 :00 needed for Medical Migraine. Branch ALCOHOL Yes 1{dose} Apply 1 Univ ers PADS PadM 5-08 Dose to ity of 00:00: area(s) [place] 00 before Medical meals. Branch ALCOHOL 0 Yes 1{dose} Apply 1 Univ ers PADS PadM 5-08 Dose to ity of 00:00: area(s) [place] 00 before Medical meals. Branch ALCOHOL Yes 1{dose} Apply 1 Univ ers PADS PadM 5-08 Dose to ity of 00:00: area(s) [place] 00 before Medical meals. Branch ALCOHOL 2021-0 Yes 1{dose} Apply 1 Univ ers PADS PadM 5-08 Dose to ity of 00:00: area(s) [place] 00 before Medical meals. Branch ALCOHOL 2021-0 Yes 1{dose} Apply 1 Univ ers PADS PadM 5-08 Dose to ity of 00:00: area(s) [place] 00 before Medical meals. Branch ALCOHOL 2021-0 Yes 1{dose} Apply 1 Univ ers PADS PadM 5-08 Dose to ity of 00:00: area(s) [place] 00 before Medical meals. Branch ALCOHOL 2022-0 Yes 1{dose} Apply 1 Univ ers PADS PadM 5-08 Dose to ity of 00:00: area(s) [place] 00 before Medical meals. Branch ALCOHOL Yes 1{dose} Apply 1 Univ ers PADS PadM 5-08 Dose to ity of 00:00: area(s) [place] 00 before Medical meals. Branch ALCOHOL Yes 1{dose} Apply 1 Univ ers PADS PadM 5-08 Dose to ity of 00:00: area(s) [place] 00 before Medical meals. Branch ALCOHOL Yes 1{dose} Apply 1 Univ ers PADS PadM 5-08 Dose to ity of 00:00: area(s) [place] 00 before Medical meals. Branch ALCOHOL Yes 1{dose} Apply 1 Univ ers PADS PadM 5-08 Dose to ity of 00:00: area(s) [place] 00 before Medical meals. Branch ALCOHOL Yes 1{dose} Apply 1 Univ ers PADS PadM 5-08 Dose to ity of 00:00: area(s) [place] 00 before Medical meals. Branch ALCOHOL Yes 1{dose} Apply 1 Univ ers PADS PadM 5-08 Dose to ity of 00:00: area(s) [place] 00 before Medical meals. Branch ALCOHOL Yes 1{dose} Apply 1 Univ ers PADS PadM 5-08 Dose to ity of 00:00: area(s) [place] 00 before Medical meals. Branch ALCOHOL Yes 1{dose} Apply 1 Univ ers PADS PadM 5-08 Dose to ity of 00:00: area(s) [place] 00 before Medical meals. Branch ALCOHOL Yes 1{dose} Apply 1 Univ ers PADS PadM 5-08 Dose to ity of 00:00: area(s) [place] 00 before Medical meals. Branch pregabalin Yes [id number] 150mg Take 1 [facility] 150 mg 4-29 capsule by ity of capsule 00:00: mouth 3 (three) Medical times [place] daily. busPIRone Yes [id number] 20mg Take 2 [facility] [place] 10 mg 4-29 tablets by ity of tablet 00:00: mouth 2 (two) Medical times [place] daily. citalopram Yes [id number] 40mg Take 1 U nivers 40 mg 4-29 tablet by ity of tablet 00:00: mouth 00 daily. Medical Branch pregabalin 2021-0 Yes [id number] 150mg Take 1 [facility] 150 mg 4-29 capsule by ity of capsule 00:00: mouth 3 (three) Medical times Branch daily. busPIRone 2021-0 Yes [id number] 20mg Take 2 [facility] [place] 10 mg 4-29 tablets by ity of tablet 00:00: mouth (two) Medical times Branch daily. citalopram 2021-0 Yes [id number] 40mg Take 1 U nivers 40 mg 4-29 tablet by ity of tablet 00:00: mouth 00 daily. Medical Branch pregabalin 2021-0 Yes [id number] 150mg Take 1 [facility] 150 mg 4-29 capsule by ity of capsule 00:00: mouth (three) Medical times Branch daily. busPIRone 2021-0 Yes [id number] 20mg Take 2 [facility] [place] 10 mg 4-29 tablets by ity of tablet 00:00: mouth (two) Medical times Branch daily. citalopram 2021-0 Yes [id number] 40mg Take 1 U nivers 40 mg 4-29 tablet by ity of tablet 00:00: mouth daily. Medical Branch pregabalin 2021-0 Yes [id number] 150mg Take 1 [facility] 150 mg 4-29 capsule by ity of capsule 00:00: mouth (three) Medical times Branch daily. busPIRone 2021-0 Yes [id number] 20mg Take 2 [facility] [place] 10 mg 4-29 tablets by ity of tablet 00:00: mouth (two) Medical times Branch daily. citalopram 2021-0 Yes [id number] 40mg Take 1 [facility] nivers 40 mg 4-29 tablet by ity of tablet 00:00: mouth daily. Medical Branch pregabalin 2021-0 Yes [id number] 150mg Take 1 [facility] 150 mg 4-29 capsule by ity of capsule 00:00: mouth 3 (three) Medical times Branch daily. busPIRone 2021-0 Yes [id number] 20mg Take 2 [facility] [place] 10 mg 4-29 tablets by ity of tablet 00:00: mouth (two) Medical times Branch daily. citalopram 2021-0 Yes [id number] 40mg Take 1 [facility] nivers 40 mg 4-29 tablet by ity of tablet 00:00: mouth 00 daily. Medical Branch pregabalin 2021-0 Yes [id number] 150mg Take 1 [facility] 150 mg 4-29 capsule by ity of capsule 00:00: mouth 3 (three) Medical times Branch daily. busPIRone 2021-0 Yes [id number] 20mg Take 2 [facility] [place] 10 mg 4-29 tablets by ity of tablet 00:00: mouth (two) Medical times Branch daily. citalopram 2021-0 Yes [id number] 40mg Take 1 [facility] 40 mg 4-29 tablet by ity of tablet 00:00: mouth daily. Medical Branch pregabalin 2021-0 Yes [id number] 150mg Take 1 [facility] 150 mg 4-29 capsule by ity of capsule 00:00: mouth (three) Medical times Branch daily. busPIRone 2021-0 Yes [id number] 20mg Take 2 [facility] [place] 10 mg 4-29 tablets by ity of tablet 00:00: mouth (two) Medical times Branch daily. citalopram 2021-0 Yes [id number] 40mg Take 1 [facility] 40 mg 4-29 tablet by ity of tablet 00:00: mouth daily. Medical Branch pregabalin 2021-0 Yes [id number] 150mg Take 1 [facility] 150 mg 4-29 capsule by ity of capsule 00:00: mouth (three) Medical times Branch daily. busPIRone 2-0 Yes [id number] 20mg Take 2 [facility] [place] 10 mg 4-29 tablets by ity of tablet 00:00: mouth (two) Medical times Branch daily. citalopram 2-0 Yes [id number] 40mg Take 1 [facility] n[facility] 40 mg 4-29 tablet by ity of tablet 00:00: mouth 00 daily. Medical Branch pregabalin 2021-0 Yes [id number] 150mg Take 1 [facility] 150 mg 4-29 capsule by ity of capsule 00:00: mouth (three) Medical times Branch daily. busPIRone 2021-0 Yes [id number] 20mg Take 2 [facility] [place] 10 mg 4-29 tablets by ity of tablet 00:00: mouth (two) Medical times Branch daily. citalopram 2021-0 Yes [id number] 40mg Take 1 [facility] 40 mg 4-29 tablet by ity of tablet 00:00: mouth daily. Medical Branch pregabalin 2021-0 Yes [id number] 150mg Take 1 [facility] 150 mg 4-29 capsule by ity of capsule 00:00: mouth 3 (three) Medical times Branch daily. busPIRone 2021-0 Yes [id number] 20mg Take 2 [facility] [place] 10 mg 4-29 tablets by ity of tablet 00:00: mouth (two) Medical times Branch daily. citalopram 2021-0 Yes [id number] 40mg Take 1 [facility] 40 mg 4-29 tablet by ity of tablet 00:00: mouth daily. Medical Branch pregabalin 2021-0 Yes [id number] 150mg Take 1 [facility] 150 mg 4-29 capsule by ity of capsule 00:00: mouth 3 (three) Medical times Branch daily. busPIRone 2021-0 Yes [id number] 20mg Take 2 [facility] [place] 10 mg 4-29 tablets by ity of tablet 00:00: mouth (two) Medical times Branch daily. citalopram 2021-0 Yes [id number] 40mg Take 1 [facility] 40 mg 4-29 tablet by ity of tablet 00:00: mouth daily. Medical Branch pregabalin 2021-0 Yes [id number] 150mg Take 1 [facility] 150 mg 4-29 capsule by ity of capsule 00:00: mouth 3 (three) Medical times Branch daily. busPIRone 2021-0 Yes [id number] 20mg Take 2 [facility] [place] 10 mg 4-29 tablets by ity of tablet 00:00: mouth 2 (two) Medical times Branch daily. citalopram 2021-0 Yes [id number] 40mg Take 1 [facility] 40 mg 4-29 tablet by ity of tablet 00:00: mouth daily. Medical Branch pregabalin 2021-0 Yes [id number] 150mg Take 1 [facility] 150 mg 4-29 capsule by ity of capsule 00:00: mouth 3 (three) Medical times Branch daily. busPIRone 2-0 Yes [id number] 20mg Take 2 [facility] [place] 10 mg 4-29 tablets by ity of tablet 00:00: mouth (two) Medical times Branch daily. citalopram 2021-0 Yes [id number] 40mg Take 1 [facility] 40 mg 4-29 tablet by ity of tablet 00:00: mouth 00 daily. Medical Branch pregabalin 2021-0 Yes [id number] 150mg Take 1 [facility] 150 mg 4-29 capsule by ity of capsule 00:00: mouth (three) Medical times Branch daily. busPIRone 2021-0 Yes [id number] 20mg Take 2 [facility] [place] 10 mg 4-29 tablets by ity of tablet 00:00: mouth (two) Medical times Branch daily. citalopram 2021-0 Yes [id number] 40mg Take 1 [facility] 40 mg 4-29 tablet by ity of tablet 00:00: mouth daily. Medical Branch pregabalin 2021-0 Yes [id number] 150mg Take 1 [facility] 150 mg 4-29 capsule by ity of capsule 00:00: mouth (three) Medical times Branch daily. busPIRone 2021-0 Yes [id number] 20mg Take 2 [facility] [place] 10 mg 4-29 tablets by ity of tablet 00:00: mouth (two) Medical times Branch daily. citalopram 2021-0 Yes [id number] 40mg Take 1 [facility] 40 mg 4-29 tablet by ity of tablet 00:00: mouth daily. Medical Branch pregabalin 2021-0 Yes [id number] 150mg Take 1 [facility] 150 mg 4-29 capsule by ity of capsule 00:00: mouth (three) Medical times Branch daily. busPIRone 2-0 Yes [id number] 20mg Take 2 [facility] [place] 10 mg 4-29 tablets by ity of tablet 00:00: mouth (two) Medical times Branch daily. citalopram 2-0 Yes [id number] 40mg Take 1 [facility] nivers 40 mg 4-29 tablet by ity of tablet 00:00: mouth [place] 00 daily. Medical Branch pantoprazol 2021-0 Yes [id number] 40mg Take 1 [facility] e 40 mg EC 4-04 tablet by ity of tablet 00:00: mouth [place] 00 daily. Medical Branch pantoprazol 2021-0 Yes [id number] 40mg Take 1 [facility] e 40 mg EC 4-04 tablet by ity of tablet 00:00: mouth [place] 00 daily. Medical Branch pantoprazol 2021-0 Yes [id number] 40mg Take 1 [facility] e 40 mg EC 4-04 tablet by ity of tablet 00:00: mouth [place] 00 daily. Medical Branch pantoprazol 2021-0 Yes [id number] 40mg Take 1 [facility] e 40 mg EC 4-04 tablet by ity of tablet 00:00: mouth [place] 00 daily. Medical Branch pantoprazol Yes [id number] 40mg Take 1 [facility] e 40 mg EC 4-04 tablet by ity of tablet 00:00: mouth [place] 00 daily. Medical Branch pantoprazol Yes [id number] 40mg Take 1 [facility] e 40 mg EC 4-04 tablet by ity of tablet 00:00: mouth [place] 00 daily. Medical Branch pantoprazol 0 Yes [id number] 40mg Take 1 [facility] e 40 mg EC 4-04 tablet by ity of tablet 00:00: mouth [place] 00 daily. Medical Branch pantoprazol 2021-0 Yes [id number] 40mg Take 1 [facility] e 40 mg EC 4-04 tablet by ity of tablet 00:00: mouth [place] 00 daily. Medical Branch pantoprazol 2021-0 Yes [id number] 40mg Take 1 [facility] e 40 mg EC 4-04 tablet by ity of tablet 00:00: mouth [place] 00 daily. Medical Branch pantoprazol 2021-0 Yes [id number] 40mg Take 1 [facility] e 40 mg EC 4-04 tablet by ity of tablet 00:00: mouth [place] 00 daily. Medical Branch pantoprazol 2021-0 Yes [id number] 40mg Take 1 [facility] e 40 mg EC 4-04 tablet by ity of tablet 00:00: mouth [place] 00 daily. Medical Branch pantoprazol 2021-0 Yes [id number] 40mg Take 1 [facility] e 40 mg EC 4-04 tablet by ity of tablet 00:00: mouth [place] 00 daily. Medical Branch pantoprazol 2-0 Yes [id number] 40mg Take 1 [facility] e 40 mg EC 4-04 tablet by ity of tablet 00:00: mouth [place] 00 daily. Medical Branch pantoprazol 2-0 Yes [id number] 40mg Take 1 [facility] e 40 mg EC 4-04 tablet by ity of tablet 00:00: mouth [place] 00 daily. Medical Branch pantoprazol 2-0 Yes [id number] 40mg Take 1 [facility] e 40 mg EC 4-04 tablet by ity of tablet 00:00: mouth [place] 00 daily. Medical Branch pantoprazol 2-0 Yes [id number] 40mg Take 1 [facility] e 40 mg EC 4-04 tablet by ity of tablet 00:00: mouth [place] 00 daily. Medical Branch Blood-Gluco 2-0 Yes [id number] Use twice [facility] se Meter 3-08 a day for ity of (ONETOUCH 00:00: ICD CODE [place] VERIO FLEX E11.65 Medical START) Kit Branch Blood-Gluco 2021-0 Yes [id number] Use twice [facility] se Meter 3-08 a day for ity of (ONETOUCH 00:00: ICD [place] VERIO FLEX E11.65 Medical START) Kit Branch Blood-Gluco 2-0 Yes [id number] Use twice [facility] se Meter 3-08 a day for ity of (ONETOUCH 00:00: ICD CODE [place] VERIO FLEX E11.65 Medical START) Kit Branch Blood-Gluco 2-0 Yes [id number] Use twice [facility] se Meter 3-08 a day for ity of (ONETOUCH 00:00: ICD CODE [place] VERIO FLEX E11.65 Medical START) Kit Branch Blood-Gluco 2-0 Yes [id number] Use twice [facility] se Meter 3-08 a day for ity of (ONETOUCH 00:00: ICD CODE [place] VERIO FLEX E11.65 Medical START) Kit Branch Blood-Gluco 2-0 Yes [id number] Use twice [facility] se Meter 3-08 a day for ity of (ONETOUCH 00:00: ICD CODE [place] VERIO FLEX E11.65 Medical START) Kit Branch Blood-Gluco 2-0 Yes [id number] Use twice [facility] se Meter 3-08 a day for ity of (ONETOUCH 00:00: ICD CODE [place] VERIO FLEX E11.65 Medical START) Kit Branch Blood-Gluco 2022-0 Yes [id number] Use twice [facility] se Meter 3-08 a day for ity of (ONETOUCH 00:00: ICD CODE [place] VERIO FLEX E11.65 Medical START) Kit Branch Blood-Gluco 2022-0 Yes [id number] Use twice [facility] se Meter 3-08 a day for ity of (ONETOUCH 00:00: ICD CODE [place] VERIO FLEX E11.65 Medical START) Kit Branch Blood-Gluco 2022-0 Yes [id number] Use twice [facility] se Meter 3-08 a day for ity of (ONETOUCH 00:00: ICD CODE [place] VERIO FLEX E11.65 Medical START) Kit Branch Blood-Gluco 2022-0 Yes [id number] Use twice [facility] se Meter 3-08 a day for ity of (ONETOUCH 00:00: ICD CODE [place] VERIO FLEX .65 Medical START) Kit Branch Blood-Gluco 2022-0 Yes [id number] Use twice [facility] se Meter 3-08 a day for ity of (ONETOUCH 00:00: ICD CODE [place] VERIO FLEX E11.65 Medical START) Kit Branch Blood-Gluco 2022-0 Yes [id number] Use twice [facility] se Meter 3-08 a day for ity of (ONETOUCH 00:00: ICD CODE [place] VERIO FLEX E11.65 Medical START) Kit Branch Blood-Gluco 2022-0 Yes [id number] Use twice [facility] se Meter 3-08 a day for ity of (ONETOUCH 00:00: ICD CODE [place] VERIO FLEX E11.65 Medical START) Kit Branch Blood-Gluco 2022-0 Yes [id number] Use twice [facility] se Meter 3-08 a day for ity of (ONETOUCH 00:00: ICD CODE [place] VERIO FLEX E11.65 Medical START) Kit Branch Blood-Gluco 2022-0 Yes [id number] Use twice [facility] se Meter 3-08 a day for ity of (ONETOUCH 00:00: ICD CODE [place] VERIO FLEX E1165 Medical [place]) [facility] Branch mirabegron 2021-0 Yes [id number] 50mg Take 1 [facility] (MYRBETRIQ) 1-18 tablet by ity of 50 mg 00:00: mouth [place] tablet 00 daily. Medical Branch mirabegron 2021-0 Yes [id number] 50mg Take 1 [facility] (MYRBETRIQ) 1-18 tablet by ity of 50 mg 00:00: mouth [place] tablet 00 daily. [facility] Branch mirabegron 2021-0 Yes [id number] 50mg Take 1 [facility] (MYRBETRIQ) 1-18 tablet by ity of 50 mg 00:00: mouth [place] tablet 00 daily. [facility] Branch mirabegron 2021-0 Yes [id number] 50mg Take 1 [facility] (MYRBETRIQ) 1-18 tablet by ity of 50 mg 00:00: mouth [place] tablet 00 daily. [facility] Branch mirabegron 2021-0 Yes [id number] 50mg Take 1 [facility] (MYRBETRIQ) 1-18 tablet by ity of 50 mg 00:00: mouth [place] tablet 00 daily. [facility] Branch mirabegron 2021-0 Yes [id number] 50mg Take 1 [facility] (MYRBETRIQ) 1-18 tablet by ity of 50 mg 00:00: mouth [place] tablet 00 daily. [facility] Branch mirabegron 2021-0 Yes [id number] 50mg Take 1 [facility] (MYRBETRIQ) 1-18 tablet by ity of 50 mg 00:00: mouth [place] tablet 00 daily. [facility] Branch mirabegron 2021-0 Yes [id number] 50mg Take 1 [facility] (MYRBETRIQ) 1-18 tablet by ity of 50 mg 00:00: mouth [place] tablet 00 daily. [facility] Branch mirabegron 2021-0 Yes [id number] 50mg Take 1 [facility] (MYRBETRIQ) 1-18 tablet by ity of 50 mg 00:00: mouth [place] tablet 00 daily. [facility] Branch mirabegron 2021-0 Yes [id number] 50mg Take 1 [facility] (MYRBETRIQ) 1-18 tablet by ity of 50 mg 00:00: mouth [place] tablet 00 daily. [facility] Branch mirabegron 2021-0 Yes [id number] 50mg Take 1 [facility] (MYRBETRIQ) 1-18 tablet by ity of 50 mg 00:00: mouth [place] tablet 00 daily. [facility] mirabegron 0 Yes [id number] 50mg Take 1 [facility] (MYRBETRIQ) 1-18 tablet by ity of 50 mg 00:00: mouth [place] tablet 00 daily. [facility] mirabegron 0 Yes [id number] 50mg Take 1 [facility] (MYRBETRIQ) 1-18 tablet by ity of 50 mg 00:00: mouth [place] tablet 00 daily. [facility] mirabegron 0 Yes [id number] 50mg Take 1 [facility] (MYRBETRIQ) 1-18 tablet by ity of 50 mg 00:00: mouth [place] tablet 00 daily. [facility] mirabegron 0 Yes [id number] 50mg Take 1 [facility] (MYRBETRIQ) 1-18 tablet by ity of 50 mg 00:00: mouth [place] tablet 00 daily. [facility] mirabegron Yes [id number] 50mg Take 1 [facility] (MYRBETRIQ) 1-18 tablet by ity of 50 mg 00:00: mouth [place] tablet 00 daily. [facility] semaglutide 2020-09 Yes [id number] Inject Univers (OZEMPIC) 2-01 0.25 mg ity of 0.25 mg or 00:00: under the [place] 0.5 mg(2 00 skin Medical mg/1.5 mL) weekly. Branch PnIj semaglutide 2020-09 Yes [id number] Inject [facility] (OZEMPIC) 2-01 0.25 mg ity of 0.25 mg or 00:00: under the [place] 0.5 mg(2 00 skin Medical mg/1.5 mL) weekly. Branch PnIj semaglutide 2020-09 Yes [id number] Inject [facility] (OZEMPIC) 2-01 0.25 mg ity of 0.25 mg or 00:00: under the [place] 0.5 mg(2 00 skin Medical mg/1.5 mL) weekly. Branch PnIj semaglutide 2020-09 Yes [id number] Inject [facility] (OZEMPIC) 2-01 0.25 mg ity of 0.25 mg or 00:00: under the [place] 0.5 mg(2 00 skin Medical mg/1.5 mL) weekly. Branch PnIj semaglutide 2020-09 Yes [id number] Inject [facility] (OZEMPIC) 2-01 0.25 mg ity of 0.25 mg or 00:00: under the [place] 0.5 mg(2 00 skin Medical mg/1.5 mL) weekly. Branch PnIj semaglutide 2020-09 Yes [id number] Inject [facility] (OZEMPIC) 2-01 0.25 mg ity of 0.25 mg or 00:00: under the [place] 0.5 mg(2 00 skin Medical mg/1.5 mL) weekly. Branch PnIj semaglutide 2020-09 Yes [id number] Inject [facility] (OZEMPIC) 2-01 0.25 mg ity of 0.25 mg or 00:00: under the [place] 0.5 mg(2 00 skin Medical mg/1.5 mL) weekly. Branch PnIj semaglutide 2020-09 Yes [id number] Inject [facility] (OZEMPIC) 2-01 0.25 mg ity of 0.25 mg or 00:00: under the [place] 0.5 mg(2 00 skin Medical mg/1.5 mL) weekly. Branch PnIj semaglutide 2020-09 Yes [id number] Inject [facility] (OZEMPIC) 2-01 0.25 mg ity of 0.25 mg or 00:00: under the [place] 0.5 mg(2 00 skin Medical mg/1.5 mL) weekly. Branch PnIj semaglutide 2020-09 Yes [id number] Inject [facility] (OZEMPIC) 2-01 0.25 mg ity of 0.25 mg or 00:00: under the [place] 0.5 mg(2 00 skin Medical mg/1.5 mL) weekly. Branch PnIj semaglutide 2020-09 Yes [id number] Inject [facility] (OZEMPIC) 2-01 0.25 mg ity of 0.25 mg or 00:00: under the [place] 0.5 mg(2 00 skin Medical mg/1.5 mL) weekly. Branch PnIj semaglutide 2020-09 Yes [id number] Inject [facility] (OZEMPIC) 2-01 0.25 mg ity of 0.25 mg or 00:00: under the [place] 0.5 mg(2 00 skin Medical mg/1.5 mL) weekly. [facility] semaglutide 2020-09 Yes [id number] Inject Univers (OZEMPIC) 2-01 0.25 mg ity of 0.25 mg or 00:00: under the [place] 0.5 mg(2 00 skin Medical mg/1.5 mL) weekly. [facility] semaglutide 2020-09 Yes [id number] Inject Univers (OZEMPIC) 2-01 0.25 mg ity of 0.25 mg or 00:00: under the [place] 0.5 mg(2 00 skin Medical mg/1.5 mL) weekly. [facility] semaglutide 2020-09 Yes [id number] Inject Univers (OZEMPIC) 2-01 0.25 mg ity of 0.25 mg or 00:00: under the [place] 0.5 mg(2 00 skin Medical mg/1.5 mL) weekly. [facility] semaglutide 2020-09 Yes [id number] Inject [facility] (OZEMPIC) 2-01 0.25 mg ity of 0.25 mg or 00:00: under the [place] 0.5 mg(2 00 skin Medical mg/1.5 mL) weekly. [facility] metformin 2020-09- No [id number] 500mg Take 1 [facility] ER 500 mg 10-27 tablet by ity of 24 hr 00:00: 00:00 mouth [place] tablet 00 :00 daily with Medical breakfast. Branch STOP REGULAR METFORMIN. metformin 2020-09- No [id number] 500mg Take 1 [facility] ER 500 mg 10-27 tablet by ity of 24 hr 00:00: 00:00 mouth [place] tablet 00 :00 daily with Medical breakfast. Branch STOP REGULAR METFORMIN. cyanocobala 2020-09 Yes [id number] 1000ug 1 mL by [facility] min 1,000 10-04 Intramuscu ity of mcg/mL 00:00: lar route [place] injection 00 every 2 Medical (two) Branch weeks. levothyroxi 2020-09 Yes [id number] 50ug Take 1 [facility] ne 50 mcg 10-04 tablet by ity o f tablet 00:00: mouth [place] 00 every Medical morning. Branch fluticasone 2020-09 Yes [id number] 2{puff} Inhale 2 [facility] propionate 1-09 Puffs ity of (FLOVENT 00:00: every 12 [place] HFA) 110 00 (twelve) Medical mcg/actuati hours. Branch on inhaler Rinse mouth after each use. levalbutero 2020-09 Yes [id number] .63mg Inhale [facility] l 0.63 mg/3 1-09 0.63 mg 3 ity of mL 00:00: (three) [place] nebulizer 00 times Medical solution daily as Branch needed for Wheezing or Shortness of Breath. losartan 50 2020-09 Yes [id number] 50mg Take 1 [facility] mg tablet -09 tablet by ity o f 00:00: mouth 2 [place] 00 (two) Medical times Branch daily. clotrimazol 2020-09 Yes [id number] Apply to [facility] e-betametha -09 area(s) 2 ity of sone cream 00:00: (two) [place] 00 times Medical daily. Branch cyclobenzap 2020-09 Yes [id number] TAKE 1 [facility] rine 5 mg -09 TABLET BY ity o f tablet 00:00: MOUTH [place] 00 EVERY 8 Medical HOURS Branch NEEDED econazole 2020-09 Yes [id number] Apply to [facility] nitrate 1 % 10-04 area(s) 2 ity of cream 00:00: (two) [place] 00 times Medical daily. Branch albuterol 2020-09 Yes [id number] 2{puff} Inhale 2 [facility] (PROAIR 1-09 Puffs ity of HFA) 90 00:00: every 6 [place] mcg/actuati 00 (six) Medical on inhaler hours as Branc h needed for Wheezing or Shortness of Breath. triamcinolo 2020-09 Yes [id number] Apply to [facility] ne 0.025 % - area(s) 3 ity of ointment 00:00: (three) [place] 00 times Medical daily. For Branch itching diltiazem 2020-09 Yes [id number] 120mg Take 1 U nivers (CARTIA XT) -09 capsule by it y of 120 mg 24 00:00: mouth 2 [place] hr capsule 00 (two) Medical times Branch daily. cyanocobala 2020-09 Yes [id number] 1000ug 1 mL by [facility] min 1,000 -09 Intramuscu ity of mcg/mL 00:00: lar route [place] injection 00 every 2 Medical (two) Branch weeks. levothyroxi 2020-09 Yes [id number] 50ug Take 1 [facility] ne 50 mcg 1-09 tablet by ity o f tablet 00:00: mouth [place] 00 every Medical morning. Branch fluticasone 2020-09 Yes [id number] 2{puff} Inhale 2 [facility] propionate 1-09 Puffs ity of (FLOVENT 00:00: every 12 [place] HFA) 110 00 (twelve) Medical mcg/actuati hours. Branch on inhaler Rinse mouth after each use. levalbutero 2020-09 Yes [id number] .63mg Inhale Univers l 0.63 mg/3 1-09 0.63 mg 3 ity of mL 00:00: (three) [place] nebulizer 00 times Medical solution daily as Branch needed for Wheezing or Shortness of Breath. losartan 50 2020-09 Yes [id number] 50mg Take 1 [facility] mg tablet 1-09 tablet by ity o f 00:00: mouth 2 [place] 00 (two) Medical times Branch daily. clotrimazol 2020-09 Yes [id number] Apply to [facility] e-betametha -09 area(s) 2 ity of sone cream 00:00: (two) [place] 00 times Medical daily. Branch cyclobenzap 2020-09 Yes [id number] TAKE 1 [facility] rine 5 mg 1-09 TABLET BY ity o f tablet 00:00: MOUTH [place] 00 EVERY 8 Medical HOURS Branch NEEDED econazole 2020-09 Yes [id number] Apply to [facility] nitrate 1 % 09 area(s) 2 ity of cream 00:00: (two) [place] 00 times Medical daily. Branch albuterol 2020-09 Yes [id number] 2{puff} Inhale 2 [facility] (PROAIR 1-09 Puffs ity of HFA) 90 00:00: every 6 [place] mcg/actuati 00 (six) Medical on inhaler hours as Branc h needed for Wheezing or Shortness of Breath. triamcinolo 2020-09 Yes [id number] Apply to [facility] ne 0.025 % -09 area(s) 3 ity of ointment 00:00: (three) [place] 00 times Medical daily. For Branch itching diltiazem 2020-09 Yes [id number] 120mg Take 1 U nivers (CARTIA XT) 1-09 capsule by it y of 120 mg 24 00:00: mouth 2 [place] hr capsule 00 (two) Medical times Branch daily. cyanocobala 2020-09 Yes [id number] 1000ug 1 mL by [facility] min 1,000 -09 Intramuscu ity of mcg/mL 00:00: lar route [place] injection 00 every 2 Medical (two) Branch weeks. levothyroxi 2020-09 Yes [id number] 50ug Take 1 [facility] ne 50 mcg 1-09 tablet by ity o f tablet 00:00: mouth [place] 00 every Medical morning. Branch fluticasone 2020-09 Yes [id number] 2{puff} Inhale 2 [facility] propionate 1-09 Puffs ity of (FLOVENT 00:00: every 12 [place] HFA) 110 00 (twelve) Medical mcg/actuati hours. Branch on inhaler Rinse mouth after each use. levalbutero 2020-09 Yes [id number] .63mg Inhale Univers l 0.63 mg/3 1-09 0.63 mg 3 ity of mL 00:00: (three) [place] nebulizer 00 times Medical solution daily as Branch needed for Wheezing or Shortness of Breath. losartan 50 2020-09 Yes [id number] 50mg Take 1 [facility] mg tablet -09 tablet by ity o f 00:00: mouth 2 [place] 00 (two) Medical times Branch daily. clotrimazol 2020-09 Yes [id number] Apply to [facility] e-betametha 09 area(s) 2 ity of sone cream 00:00: (two) [place] 00 times Medical daily. Branch cyclobenzap 2020-09 Yes [id number] TAKE 1 [facility] rine 5 mg 1-09 TABLET BY ity o f tablet 00:00: MOUTH [place] 00 EVERY 8 Medical HOURS Branch NEEDED econazole 2020-09 Yes [id number] Apply to [facility] nitrate 1 % 09 area(s) 2 ity of cream 00:00: (two) [place] 00 times Medical daily. Branch albuterol 2020-09 Yes [id number] 2{puff} Inhale 2 [facility] (PROAIR 1-09 Puffs ity of HFA) 90 00:00: every 6 [place] mcg/actuati 00 (six) Medical on inhaler hours as Branc h needed for Wheezing or Shortness of Breath. triamcinolo 2020-09 Yes [id number] Apply to [facility] ne 0.025 % 10-04 area(s) 3 ity of ointment 00:00: (three) [place] 00 times Medical daily. For Branch itching diltiazem 2020-09 Yes [id number] 120mg Take 1 U nivers (CARTIA XT) 09 capsule by it y of 120 mg 24 00:00: mouth 2 [place] hr capsule 00 (two) Medical times Branch daily. cyanocobala 2020-09 Yes [id number] 1000ug 1 mL by [facility] min 1,000 09 Intramuscu ity of mcg/mL 00:00: lar route [place] injection 00 every 2 Medical (two) Branch weeks. levothyroxi 2020-09 Yes [id number] 50ug Take 1 [facility] ne 50 mcg 10-04 tablet by ity o f tablet 00:00: mouth [place] 00 every Medical morning. Branch fluticasone 2020-09 Yes [id number] 2{puff} Inhale 2 [facility] propionate -09 Puffs ity of (FLOVENT 00:00: every 12 [place] HFA) 110 00 (twelve) Medical mcg/actuati hours. Branch on inhaler Rinse mouth after each use. levalbutero 2020-09 Yes [id number] .63mg Inhale Univers l 0.63 mg/3 -09 0.63 mg 3 ity of mL 00:00: (three) [place] nebulizer 00 times Medical solution daily as Branch needed for Wheezing or Shortness of Breath. losartan 50 2020-09 Yes [id number] 50mg Take 1 [facility] mg tablet 09 tablet by ity o f 00:00: mouth 2 [place] 00 (two) Medical times Branch daily. clotrimazol 2020-09 Yes [id number] Apply to [facility] e-betametha 09 area(s) 2 ity of sone cream 00:00: (two) [place] 00 times Medical daily. Branch cyclobenzap 2020-09 Yes [id number] TAKE 1 [facility] rine 5 mg -09 TABLET BY ity o f tablet 00:00: MOUTH [place] 00 EVERY 8 Medical HOURS Branch NEEDED econazole 2020-09 Yes [id number] Apply to [facility] nitrate 1 % 10-04 area(s) 2 ity of cream 00:00: (two) [place] 00 times Medical daily. Branch albuterol 2020-09 Yes [id number] 2{puff} Inhale 2 [facility] (PROAIR 1-09 Puffs ity of HFA) 90 00:00: every 6 [place] mcg/actuati 00 (six) Medical on inhaler hours as Branc h needed for Wheezing or Shortness of Breath. triamcinolo 2020-09 Yes [id number] Apply to [facility] ne 0.025 % -09 area(s) 3 ity of ointment 00:00: (three) [place] 00 times Medical daily. For Branch itching diltiazem 2020-09 Yes [id number] 120mg Take 1 U nivers (CARTIA XT) 1-09 capsule by it y of 120 mg 24 00:00: mouth 2 [place] hr capsule 00 (two) Medical times Branch daily. cyanocobala 2020-09 Yes [id number] 1000ug 1 mL by [facility] min 1,000 1-09 Intramuscu ity of mcg/mL 00:00: lar route [place] injection 00 every 2 Medical (two) Branch weeks. levothyroxi 2020-09 Yes [id number] 50ug Take 1 [facility] ne 50 mcg -09 tablet by ity o f tablet 00:00: mouth [place] 00 every Medical morning. Branch fluticasone 2020-09 Yes [id number] 2{puff} Inhale 2 [facility] propionate 1-09 Puffs ity of (FLOVENT 00:00: every 12 [place] HFA) 110 00 (twelve) Medical mcg/actuati hours. Branch on inhaler Rinse mouth after each use. levalbutero 2020-09 Yes [id number] .63mg Inhale Univers l 0.63 mg/3 1-09 0.63 mg 3 ity of mL 00:00: (three) [place] nebulizer 00 times Medical solution daily as Branch needed for Wheezing or Shortness of Breath. clotrimazol 2020-09 Yes [id number] Apply to [facility] e-betametha -09 area(s) 2 ity of sone cream 00:00: (two) [place] 00 times Medical daily. Branch cyclobenzap 2020-09 Yes [id number] TAKE 1 [facility] rine 5 mg 1-09 TABLET BY ity o f tablet 00:00: MOUTH [place] 00 EVERY 8 Medical HOURS Branch NEEDED econazole 2020-09 Yes [id number] Apply to [facility] nitrate 1 % -09 area(s) 2 ity of cream 00:00: (two) [place] 00 times Medical daily. Branch albuterol 2020-09 Yes [id number] 2{puff} Inhale 2 [facility] (PROAIR 1-09 Puffs ity of HFA) 90 00:00: every 6 [place] mcg/actuati 00 (six) Medical on inhaler hours as Branc h needed for Wheezing or Shortness of Breath. triamcinolo 2020-09 Yes [id number] Apply to [facility] ne 0.025 % 09 area(s) 3 ity of ointment 00:00: (three) [place] 00 times Medical daily. For Branch itching rosuvastati 2020-09 Yes [id number] 10mg Take 1 [facility] n 10 mg 10-04 tablet by ity of tablet 00:00: mouth at [place] 00 bedtime. Medical Branch cyanocobala 2020-09 Yes [id number] 1000ug 1 mL by [facility] min 1,000 -09 Intramuscu ity of mcg/mL 00:00: lar route [place] injection 00 every 2 Medical (two) Branch weeks. levothyroxi 2020-09 Yes [id number] 50ug Take 1 [facility] ne 50 mcg -09 tablet by ity o f tablet 00:00: mouth [place] 00 every Medical morning. Branch fluticasone 2020-09 Yes [id number] 2{puff} Inhale 2 [facility] propionate 1-09 Puffs ity of (FLOVENT 00:00: every 12 [place] HFA) 110 00 (twelve) Medical mcg/actuati hours. Branch on inhaler Rinse mouth after each use. levalbutero 2020-09 Yes [id number] .63mg Inhale [facility] l 0.63 mg/3 1-09 0.63 mg 3 ity of mL 00:00: (three) [place] nebulizer 00 times Medical solution daily as Branch needed for Wheezing or Shortness of Breath. losartan 50 2020-09 Yes [id number] 50mg Take 1 [facility] mg tablet -09 tablet by ity o f 00:00: mouth 2 [place] 00 (two) Medical times Branch daily. clotrimazol 2020-09 Yes [id number] Apply to [facility] e-betametha -09 area(s) 2 ity of sone cream 00:00: (two) [place] 00 times Medical daily. Branch cyclobenzap 2020-09 Yes [id number] TAKE 1 [facility] rine 5 mg -09 TABLET BY ity o f tablet 00:00: MOUTH [place] 00 EVERY 8 Medical HOURS Branch NEEDED econazole 2020-09 Yes [id number] Apply to [facility] nitrate 1 % 10-04 area(s) 2 ity of cream 00:00: (two) [place] 00 times Medical daily. Branch albuterol 2020-09 Yes [id number] 2{puff} Inhale 2 [facility] (PROAIR 1-09 Puffs ity of HFA) 90 00:00: every 6 [place] mcg/actuati 00 (six) Medical on inhaler hours as Branc h needed for Wheezing or Shortness of Breath. triamcinolo 2020-09 Yes [id number] Apply to [facility] ne 0.025 % 10-04 area(s) 3 ity of ointment 00:00: (three) [place] 00 times Medical daily. For Branch itching diltiazem 2020-09 Yes [id number] 120mg Take 1 [facility] (CARTIA XT) 10-04 capsule by it y of 120 mg 24 00:00: mouth 2 [place] hr capsule 00 (two) Medical times Branch daily. rosuvastati 2020-09 Yes [id number] 10mg Take 1 [facility] n 10 mg -09 tablet by ity of tablet 00:00: mouth at [place] 00 bedtime. Medical Branch cyanocobala 2020-09 Yes [id number] 1000ug 1 mL by [facility] min 1,000 09 Intramuscu ity of mcg/mL 00:00: lar route [place] injection 00 every 2 Medical (two) Branch weeks. levothyroxi 2020-09 Yes [id number] 50ug Take 1 [facility] ne 50 mcg -09 tablet by ity o f tablet 00:00: mouth [place] 00 every Medical morning. Branch fluticasone 2020-09 Yes [id number] 2{puff} Inhale 2 [facility] propionate 1-09 Puffs ity of (FLOVENT 00:00: every 12 [place] HFA) 110 00 (twelve) Medical mcg/actuati hours. Branch on inhaler Rinse mouth after each use. levalbutero 2020-09 Yes [id number] .63mg Inhale [facility] l 0.63 mg/3 1-09 0.63 mg 3 ity of mL 00:00: (three) [place] nebulizer 00 times Medical solution daily as Branch needed for Wheezing or Shortness of Breath. losartan 50 2020-09 Yes [id number] 50mg Take 1 [facility] mg tablet -09 tablet by ity o f 00:00: mouth 2 [place] 00 (two) Medical times Branch daily. clotrimazol 2020-09 Yes [id number] Apply to [facility] e-betametha 09 area(s) 2 ity of sone cream 00:00: (two) [place] 00 times Medical daily. Branch cyclobenzap 2020-09 Yes [id number] TAKE 1 [facility] rine 5 mg 09 TABLET BY ity o f tablet 00:00: MOUTH [place] 00 EVERY 8 Medical HOURS Branch NEEDED econazole 2020-09 Yes [id number] Apply to [facility] nitrate 1 % 10-04 area(s) 2 ity of cream 00:00: (two) [place] 00 times Medical daily. Branch albuterol 2020-09 Yes [id number] 2{puff} Inhale 2 [facility] (PROAIR -09 Puffs ity of HFA) 90 00:00: every 6 [place] mcg/actuati 00 (six) Medical on inhaler hours as Branc h needed for Wheezing or Shortness of Breath. triamcinolo 2020-09 Yes [id number] Apply to [facility] ne 0.025 % 10-04 area(s) 3 ity of ointment 00:00: (three) [place] 00 times Medical daily. For Branch itching diltiazem 2020-09 Yes [id number] 120mg Take 1 [facility] (CARTIA XT) 09 capsule by it y of 120 mg 24 00:00: mouth 2 [place] hr capsule 00 (two) Medical times Branch daily. cyanocobala 2020-09 Yes [id number] 1000ug 1 mL by [facility] min 1,000 -09 Intramuscu ity of mcg/mL 00:00: lar route [place] injection 00 every 2 Medical (two) Branch weeks. levothyroxi 2020-09 Yes [id number] 50ug Take 1 [facility] ne 50 mcg -09 tablet by ity o f tablet 00:00: mouth [place] 00 every Medical morning. Branch fluticasone 2020-09 Yes [id number] 2{puff} Inhale 2 [facility] propionate 1-09 Puffs ity of (FLOVENT 00:00: every 12 [place] HFA) 110 00 (twelve) Medical mcg/actuati hours. Branch on inhaler Rinse mouth after each use. levalbutero 2020-09 Yes [id number] .63mg Inhale [facility] l 0.63 mg/3 1-09 0.63 mg 3 ity of mL 00:00: (three) [place] nebulizer 00 times Medical solution daily as Branch needed for Wheezing or Shortness of Breath. losartan 50 2020-09 Yes [id number] 50mg Take 1 [facility] mg tablet -09 tablet by ity o f 00:00: mouth 2 [place] 00 (two) Medical times Branch daily. clotrimazol 2020-09 Yes [id number] Apply to [facility] e-betametha -09 area(s) 2 ity of sone cream 00:00: (two) [place] 00 times Medical daily. Branch cyclobenzap 2020-09 Yes [id number] TAKE 1 [facility] rine 5 mg -09 TABLET BY ity o f tablet 00:00: MOUTH [place] 00 EVERY 8 Medical HOURS Branch NEEDED econazole 2020-09 Yes [id number] Apply to [facility] nitrate 1 % 09 area(s) 2 ity of cream 00:00: (two) [place] 00 times Medical daily. Branch albuterol 2020-09 Yes [id number] 2{puff} Inhale 2 [facility] (PROAIR 1-09 Puffs ity of HFA) 90 00:00: every 6 [place] mcg/actuati 00 (six) Medical on inhaler hours as Branc h needed for Wheezing or Shortness of Breath. triamcinolo 2020-09 Yes [id number] Apply to [facility] ne 0.025 % -09 area(s) 3 ity of ointment 00:00: (three) [place] 00 times Medical daily. For Branch itching diltiazem 2020-09 Yes [id number] 120mg Take 1 [facility] n[facility] (CARTIA XT) -09 capsule by it y of 120 mg 24 00:00: mouth 2 [place] hr capsule 00 (two) Medical times Branch daily. cyanocobala 2020-09 Yes [id number] 1000ug 1 mL by [facility] min 1,000 1-09 Intramuscu ity of mcg/mL 00:00: lar route [place] injection 00 every 2 Medical (two) Branch weeks. levothyroxi 2020-09 Yes [id number] 50ug Take 1 [facility] ne 50 mcg 1-09 tablet by ity o f tablet 00:00: mouth [place] 00 every Medical morning. Branch fluticasone 2020-09 Yes [id number] 2{puff} Inhale 2 [facility] propionate 1-09 Puffs ity of (FLOVENT 00:00: every 12 [place] HFA) 110 00 (twelve) Medical mcg/actuati hours. Branch on inhaler Rinse mouth after each use. levalbutero 2020-09 Yes [id number] .63mg Inhale [facility] l 0.63 mg/3 1-09 0.63 mg 3 ity of mL 00:00: (three) [place] nebulizer 00 times Medical solution daily as Branch needed for Wheezing or Shortness of Breath. losartan 50 2020-09 Yes [id number] 50mg Take 1 [facility] mg tablet 1-09 tablet by ity o f 00:00: mouth 2 [place] 00 (two) Medical times Branch daily. clotrimazol 2020-09 Yes [id number] Apply to [facility] e-betametha -09 area(s) 2 ity of sone cream 00:00: (two) [place] 00 times Medical daily. Branch cyclobenzap 2020-09 Yes [id number] TAKE 1 [facility] rine 5 mg 1-09 TABLET BY ity o f tablet 00:00: MOUTH [place] 00 EVERY 8 Medical HOURS Branch NEEDED econazole 2020-09 Yes [id number] Apply to [facility] nitrate 1 % -09 area(s) 2 ity of cream 00:00: (two) [place] 00 times Medical daily. Branch albuterol 2020-09 Yes [id number] 2{puff} Inhale 2 [facility] (PROAIR 1-09 Puffs ity of HFA) 90 00:00: every 6 [place] mcg/actuati 00 (six) Medical on inhaler hours as Branc h needed for Wheezing or Shortness of Breath. triamcinolo 2020-09 Yes [id number] Apply to [facility] ne 0.025 % 1-09 area(s) 3 ity of ointment 00:00: (three) [place] 00 times Medical daily. For Branch itching diltiazem 2020-09 Yes [id number] 120mg Take 1 [facility] n[facility] (CARTIA XT) 1-09 capsule by it y of 120 mg 24 00:00: mouth 2 [place] hr capsule 00 (two) Medical times Branch daily. cyanocobala 2020-09 Yes [id number] 1000ug 1 mL by [facility] min 1,000 1-09 Intramuscu ity of mcg/mL 00:00: lar route [place] injection 00 every 2 Medical (two) Branch weeks. levothyroxi 2020-09 Yes [id number] 50ug Take 1 [facility] ne 50 mcg 1-09 tablet by ity o f tablet 00:00: mouth [place] 00 every Medical morning. Branch fluticasone 2020-09 Yes [id number] 2{puff} Inhale 2 [facility] propionate 1-09 Puffs ity of (FLOVENT 00:00: every 12 [place] HFA) 110 00 (twelve) Medical mcg/actuati hours. Branch on inhaler Rinse mouth after each use. levalbutero 2020-09 Yes [id number] .63mg Inhale [facility] l 0.63 mg/3 -09 0.63 mg 3 ity of mL 00:00: (three) [place] nebulizer 00 times Medical solution daily as Branch needed for Wheezing or Shortness of Breath. losartan 50 2020-09 Yes [id number] 50mg Take 1 [facility] mg tablet -09 tablet by ity o f 00:00: mouth 2 [place] 00 (two) Medical times Branch daily. clotrimazol 2020-09 Yes [id number] Apply to [facility] e-betametha 10-04 area(s) 2 ity of sone cream 00:00: (two) [place] 00 times Medical daily. Branch cyclobenzap 2020-09 Yes [id number] TAKE 1 [facility] rine 5 mg -09 TABLET BY ity o f tablet 00:00: MOUTH [place] 00 EVERY 8 Medical HOURS Branch NEEDED econazole 2020-09 Yes [id number] Apply to [facility] nitrate 1 % 09 area(s) 2 ity of cream 00:00: (two) [place] 00 times Medical daily. Branch albuterol 2020-09 Yes [id number] 2{puff} Inhale 2 [facility] (PROAIR 1-09 Puffs ity of HFA) 90 00:00: every 6 [place] mcg/actuati 00 (six) Medical on inhaler hours as Branc h needed for Wheezing or Shortness of Breath. triamcinolo 2020-09 Yes [id number] Apply to [facility] ne 0.025 % -09 area(s) 3 ity of ointment 00:00: (three) [place] 00 times Medical daily. For Branch itching diltiazem 2020-09 Yes [id number] 120mg Take 1 [facility] n[facility] (CARTIA XT) -09 capsule by it y of 120 mg 24 00:00: mouth 2 [place] hr capsule 00 (two) Medical times Branch daily. cyanocobala 2020-09 Yes [id number] 1000ug 1 mL by [facility] min 1,000 -09 Intramuscu ity of mcg/mL 00:00: lar route [place] injection 00 every 2 Medical (two) Branch weeks. levothyroxi 2020-09 Yes [id number] 50ug Take 1 [facility] ne 50 mcg 09 tablet by ity o f tablet 00:00: mouth [place] 00 every Medical morning. Branch fluticasone 2020-09 Yes [id number] 2{puff} Inhale 2 [facility] propionate -09 Puffs ity of (FLOVENT 00:00: every 12 [place] HFA) 110 00 (twelve) Medical mcg/actuati hours. Branch on inhaler Rinse mouth after each use. levalbutero 2020-09 Yes [id number] .63mg Inhale [facility] l 0.63 mg/3 -09 0.63 mg 3 ity of mL 00:00: (three) [place] nebulizer 00 times Medical solution daily as Branch needed for Wheezing or Shortness of Breath. losartan 50 2020-09 Yes [id number] 50mg Take 1 [facility] mg tablet -09 tablet by ity o f 00:00: mouth 2 [place] 00 (two) Medical times Branch daily. clotrimazol 2020-09 Yes [id number] Apply to [facility] e-betametha -09 area(s) 2 ity of sone cream 00:00: (two) [place] 00 times Medical daily. Branch cyclobenzap 2020-09 Yes [id number] TAKE 1 [facility] rine 5 mg 1-09 TABLET BY ity o f tablet 00:00: MOUTH [place] 00 EVERY 8 Medical HOURS Branch NEEDED econazole 2020-09 Yes [id number] Apply to [facility] nitrate 1 % 1-09 area(s) 2 ity of cream 00:00: (two) [place] 00 times Medical daily. Branch albuterol 2020-09 Yes [id number] 2{puff} Inhale 2 [facility] (PROAIR 1-09 Puffs ity of HFA) 90 00:00: every 6 [place] mcg/actuati 00 (six) Medical on inhaler hours as Branc h needed for Wheezing or Shortness of Breath. triamcinolo 2020-09 Yes [id number] Apply to [facility] ne 0.025 % 09 area(s) 3 ity of ointment 00:00: (three) [place] 00 times Medical daily. For Branch itching diltiazem 2020-09 Yes [id number] 120mg Take 1 [facility] n[facility] (CARTIA XT) -09 capsule by it y of 120 mg 24 00:00: mouth 2 [place] hr capsule 00 (two) Medical times Branch daily. cyanocobala 2020-09 Yes [id number] 1000ug 1 mL by [facility] min 1,000 -09 Intramuscu ity of mcg/mL 00:00: lar route [place] injection 00 every 2 Medical (two) Branch weeks. levothyroxi 2020-09 Yes [id number] 50ug Take 1 [facility] ne 50 mcg -09 tablet by ity o f tablet 00:00: mouth [place] 00 every Medical morning. Branch fluticasone 2020-09 Yes [id number] 2{puff} Inhale 2 [facility] propionate 1-09 Puffs ity of (FLOVENT 00:00: every 12 [place] HFA) 110 00 (twelve) Medical mcg/actuati hours. Branch on inhaler Rinse mouth after each use. levalbutero 2020-09 Yes [id number] .63mg Inhale [facility] l 0.63 mg/3 1-09 0.63 mg 3 ity of mL 00:00: (three) [place] nebulizer 00 times Medical solution daily as Branch needed for Wheezing or Shortness of Breath. losartan 50 2020-09 Yes [id number] 50mg Take 1 [facility] mg tablet 1-09 tablet by ity o f 00:00: mouth 2 [place] 00 (two) Medical times Branch daily. clotrimazol 2020-09 Yes [id number] Apply to [facility] e-betametha 09 area(s) 2 ity of sone cream 00:00: (two) [place] 00 times Medical daily. Branch cyclobenzap 2020-09 Yes [id number] TAKE 1 [facility] rine 5 mg 1-09 TABLET BY ity o f tablet 00:00: MOUTH [place] 00 EVERY 8 Medical HOURS Branch NEEDED econazole 2020-09 Yes [id number] Apply to [facility] nitrate 1 % 1-09 area(s) 2 ity of cream 00:00: (two) [place] 00 times Medical daily. Branch albuterol 2020-09 Yes [id number] 2{puff} Inhale 2 [facility] (PROAIR 1-09 Puffs ity of HFA) 90 00:00: every 6 [place] mcg/actuati 00 (six) Medical on inhaler hours as Branc h needed for Wheezing or Shortness of Breath. triamcinolo 2020-09 Yes [id number] Apply to [facility] ne 0.025 % 09 area(s) 3 ity of ointment 00:00: (three) [place] 00 times Medical daily. For Branch itching diltiazem 2020-09 Yes [id number] 120mg Take 1 [facility] n[facility] (CARTIA XT) 09 capsule by it y of 120 mg 24 00:00: mouth 2 [place] hr capsule 00 (two) Medical times Branch daily. cyanocobala 2020-09 Yes [id number] 1000ug 1 mL by [facility] min 1,000 1-09 Intramuscu ity of mcg/mL 00:00: lar route [place] injection 00 every 2 Medical (two) Branch weeks. levothyroxi 2020-09 Yes [id number] 50ug Take 1 [facility] ne 50 mcg -09 tablet by ity o f tablet 00:00: mouth [place] 00 every Medical morning. Branch fluticasone 2020-09 Yes [id number] 2{puff} Inhale 2 [facility] propionate 1-09 Puffs ity of (FLOVENT 00:00: every 12 [place] HFA) 110 00 (twelve) Medical mcg/actuati hours. Branch on inhaler Rinse mouth after each use. levalbutero 2020-09 Yes [id number] .63mg Inhale [facility] l 0.63 mg/3 1-09 0.63 mg 3 ity of mL 00:00: (three) [place] nebulizer 00 times Medical solution daily as Branch needed for Wheezing or Shortness of Breath. losartan 50 2020-09 Yes [id number] 50mg Take 1 [facility] mg tablet 1-09 tablet by ity o f 00:00: mouth 2 [place] 00 (two) Medical times Branch daily. clotrimazol 2020-09 Yes [id number] Apply to [facility] e-betametha -09 area(s) 2 ity of sone cream 00:00: (two) [place] 00 times Medical daily. Branch cyclobenzap 2020-09 Yes [id number] TAKE 1 [facility] rine 5 mg 1-09 TABLET BY ity o f tablet 00:00: MOUTH [place] 00 EVERY 8 Medical HOURS Branch NEEDED econazole 2020-09 Yes [id number] Apply to [facility] nitrate 1 % 09 area(s) 2 ity of cream 00:00: (two) [place] 00 times Medical daily. Branch albuterol 2020-09 Yes [id number] 2{puff} Inhale 2 [facility] (PROAIR 1-09 Puffs ity of HFA) 90 00:00: every 6 [place] mcg/actuati 00 (six) Medical on inhaler hours as Branc h needed for Wheezing or Shortness of Breath. triamcinolo 2020-09 Yes [id number] Apply to [facility] ne 0.025 % 10-04 area(s) 3 ity of ointment 00:00: (three) [place] 00 times Medical daily. For Branch itching diltiazem 2020-09 Yes [id number] 120mg Take 1 [facility] n[facility] (CARTIA XT) -09 capsule by it y of 120 mg 24 00:00: mouth 2 [place] hr capsule 00 (two) Medical times Branch daily. cyanocobala 2020-09 Yes [id number] 1000ug 1 mL by [facility] min 1,000 1-09 Intramuscu ity of mcg/mL 00:00: lar route [place] injection 00 every 2 Medical (two) Branch weeks. levothyroxi 2020-09 Yes [id number] 50ug Take 1 [facility] ne 50 mcg 1-09 tablet by ity o f tablet 00:00: mouth [place] 00 every Medical morning. Branch fluticasone 2020-09 Yes [id number] 2{puff} Inhale 2 [facility] propionate 1-09 Puffs ity of (FLOVENT 00:00: every 12 [place] HFA) 110 00 (twelve) Medical mcg/actuati hours. Branch on inhaler Rinse mouth after each use. levalbutero 2020-09 Yes [id number] .63mg Inhale [facility] l 0.63 mg/3 1-09 0.63 mg 3 ity of mL 00:00: (three) [place] nebulizer 00 times Medical solution daily as Branch needed for Wheezing or Shortness of Breath. losartan 50 2020-09 Yes [id number] 50mg Take 1 [facility] mg tablet -09 tablet by ity o f 00:00: mouth 2 [place] 00 (two) Medical times Branch daily. clotrimazol 2020-09 Yes [id number] Apply to [facility] e-betametha 09 area(s) 2 ity of sone cream 00:00: (two) [place] 00 times Medical daily. Branch cyclobenzap 2020-09 Yes [id number] TAKE 1 [facility] rine 5 mg 10-04 TABLET BY ity o f tablet 00:00: MOUTH [place] 00 EVERY 8 Medical HOURS Branch NEEDED econazole 2020-09 Yes [id number] Apply to [facility] nitrate 1 % 10-04 area(s) 2 ity of cream 00:00: (two) [place] 00 times Medical daily. Branch albuterol 2020-09 Yes [id number] 2{puff} Inhale 2 [facility] (PROAIR -09 Puffs ity of HFA) 90 00:00: every 6 [place] mcg/actuati 00 (six) Medical on inhaler hours as Branc h needed for Wheezing or Shortness of Breath. triamcinolo 2020-09 Yes [id number] Apply to [facility] ne 0.025 % 10-04 area(s) 3 ity of ointment 00:00: (three) [place] 00 times Medical daily. For Branch itching diltiazem 2020-09 Yes [id number] 120mg Take 1 [facility] n[facility] (CARTIA XT) 09 capsule by it y of 120 mg 24 00:00: mouth 2 [place] hr capsule 00 (two) Medical times Branch daily. cyanocobala 2020-09 Yes [id number] 1000ug 1 mL by [facility] min 1,000 -09 Intramuscu ity of mcg/mL 00:00: lar route [place] injection 00 every 2 Medical (two) Branch weeks. levothyroxi 2020-09 Yes [id number] 50ug Take 1 [facility] ne 50 mcg 1-09 tablet by ity o f tablet 00:00: mouth [place] 00 every Medical morning. Branch fluticasone 2020-09 Yes [id number] 2{puff} Inhale 2 [facility] propionate 1-09 Puffs ity of (FLOVENT 00:00: every 12 [place] HFA) 110 00 (twelve) Medical mcg/actuati hours. Branch on inhaler Rinse mouth after each use. levalbutero 2020-09 Yes [id number] .63mg Inhale [facility] l 0.63 mg/3 1-09 0.63 mg 3 ity of mL 00:00: (three) [place] nebulizer 00 times Medical solution daily as Branch needed for Wheezing or Shortness of Breath. losartan 50 2020-09 Yes [id number] 50mg Take 1 [facility] mg tablet 1-09 tablet by ity o f 00:00: mouth 2 [place] 00 (two) Medical times Branch daily. clotrimazol 2020-09 Yes [id number] Apply to [facility] e-betametha -09 area(s) 2 ity of sone cream 00:00: (two) [place] 00 times Medical daily. Branch cyclobenzap 2020-09 Yes [id number] TAKE 1 [facility] rine 5 mg 1-09 TABLET BY ity o f tablet 00:00: MOUTH [place] 00 EVERY 8 Medical HOURS Branch NEEDED econazole 2020-09 Yes [id number] Apply to [facility] nitrate 1 % -09 area(s) 2 ity of cream 00:00: (two) [place] 00 times Medical daily. Branch albuterol 2020-09 Yes [id number] 2{puff} Inhale 2 [facility] (PROAIR 1-09 Puffs ity of HFA) 90 00:00: every 6 [place] mcg/actuati 00 (six) Medical on inhaler hours as Branc h needed for Wheezing or Shortness of Breath. triamcinolo 2020-09 Yes [id number] Apply to [facility] ne 0.025 % 1-09 area(s) 3 ity of ointment 00:00: (three) [place] 00 times Medical daily. For Branch itching diltiazem 2020-09 Yes [id number] 120mg Take 1 [facility] n[facility] (CARTIA XT) 1-09 capsule by it y of 120 mg 24 00:00: mouth 2 [place] hr capsule 00 (two) Medical times Branch daily. cyanocobala 2020-09 Yes [id number] 1000ug 1 mL by [facility] min 1,000 1-09 Intramuscu ity of mcg/mL 00:00: lar route [place] injection 00 every 2 Medical (two) Branch weeks. levothyroxi 2020-09 Yes [id number] 50ug Take 1 [facility] ne 50 mcg 1-09 tablet by ity o f tablet 00:00: mouth [place] 00 every Medical morning. Branch fluticasone 2020-09 Yes [id number] 2{puff} Inhale 2 [facility] propionate 1-09 Puffs ity of (FLOVENT 00:00: every 12 [place] HFA) 110 00 (twelve) Medical mcg/actuati hours. Branch on inhaler Rinse mouth after each use. levalbutero 2020-09 Yes [id number] .63mg Inhale [facility] l 0.63 mg/3 1-09 0.63 mg 3 ity of mL 00:00: (three) [place] nebulizer 00 times Medical solution daily as Branch needed for Wheezing or Shortness of Breath. losartan 50 2020-09 Yes [id number] 50mg Take 1 [facility] mg tablet 1-09 tablet by ity o f 00:00: mouth 2 [place] 00 (two) Medical times Branch daily. clotrimazol 2020-09 Yes [id number] Apply to [facility] e-betametha 1-09 area(s) 2 ity of sone cream 00:00: (two) [place] 00 times Medical daily. Branch cyclobenzap 2020-09 Yes [id number] TAKE 1 [facility] rine 5 mg 1-09 TABLET BY ity o f tablet 00:00: MOUTH [place] 00 EVERY 8 Medical HOURS Branch NEEDED econazole 2020-09 Yes [id number] Apply to [facility] nitrate 1 % 1-09 area(s) 2 ity of cream 00:00: (two) [place] 00 times Medical daily. Branch albuterol 2020-09 Yes [id number] 2{puff} Inhale 2 [facility] (PROAIR 1-09 Puffs ity of HFA) 90 00:00: every 6 [place] mcg/actuati 00 (six) Medical on inhaler hours as Branc h needed for Wheezing or Shortness of Breath. triamcinolo 2020-09 Yes [id number] Apply to [facility] ne 0.025 % 1-09 area(s) 3 ity of ointment 00:00: (three) [place] 00 times Medical daily. For Branch itching diltiazem 2020-09 Yes [id number] 120mg Take 1 [facility] n[facility] (CARTIA XT) 10-04 capsule by it y of 120 mg 24 00:00: mouth 2 [place] hr capsule 00 (two) Medical times Branch daily. losartan 50 2020-09- No [id number] 50mg Take 1 [facility] mg tablet 10-04 tablet by ity of 00:00: 00:00 mouth 2 [place] 00 :00 (two) Medical times Branch daily. diltiazem 2020-09- No [id number] 120mg Take 1 [facility] (CARTIA XT) 10-04 capsule by i ty of 120 mg 24 00:00: 00:00 mouth 2 [place] hr capsule 00 :00 (two) Medical times Branch daily. rosuvastati 2020-09- No [id number] 10mg Take 1 [facility] n 10 mg 10-04 tablet by ity of tablet 00:00: 00:00 mouth at [place] 00 :00 bedtime. Medical Branch rosuvastati 2020-09- No [id number] 10mg Take 1 [facility] n 10 mg 10-04 tablet by ity of tablet 00:00: 00:00 mouth at [place] 00 :00 bedtime. Medical Branch proMETHazin 2019-09 Yes TAKE 1 [facility] ers e 25 mg 0-22 TABLET BY ity of tablet 00:00: MOUTH [place] 00 EVERY 6 Medical HOURS Branch NEEDED FOR NAUSEA proMETHazin 2019-09 Yes TAKE 1 [facility] ers e 25 mg 0-22 TABLET BY ity of tablet 00:00: MOUTH [place] 00 EVERY 6 Medical HOURS Branch NEEDED FOR NAUSEA proMETHazin 2019-09 Yes TAKE 1 [facility] ers e 25 mg 0-22 TABLET BY ity of tablet 00:00: MOUTH [place] 00 EVERY 6 Medical HOURS Branch NEEDED FOR NAUSEA proMETHazin 2019-09 Yes TAKE 1 [facility] ers e 25 mg 0-22 TABLET BY ity of tablet 00:00: MOUTH [place] 00 EVERY 6 Medical HOURS Branch NEEDED FOR NAUSEA proMETHazin 2019-09 Yes TAKE 1 [facility] ers e 25 mg 0-22 TABLET BY ity of tablet 00:00: MOUTH [place] 00 EVERY 6 Medical HOURS Branch NEEDED FOR NAUSEA proMETHazin 2019-09- No TAKE 1 [facility] vers e 25 mg 0-22 06-13 TABLET BY ity of tablet 00:00: 00:00 MOUTH [place] 00 :00 EVERY 6 Medical HOURS Branch NEEDED FOR NAUSEA Ginkgo 2019-0 Yes [facility] [place] 120 1-16 ity of mg Tab 00:00: [place] 00 Medical Branch Ginkgo 2019-0 Yes [facility] [place] 120 1-16 ity of mg Tab 00:00: [place] [facility] Ginkgo 2019-0 Yes [facility] [place] 120 1-16 ity of mg Tab 00:00: [place] [facility] Ginkgo 2019-0 Yes [facility] [place] 120 1-16 ity of mg Tab 00:00: [place] [facility] Ginkgo 2019-0 Yes [facility] [place] 120 1-16 ity of mg Tab 00:00: [place] [facility] Ginkgo 2019-0 Yes [facility] [place] 120 1-16 ity of mg Tab 00:00: [place] [facility] Ginkgo 2019-0 Yes [facility] [place] 120 1-16 ity of mg Tab 00:00: [place] [facility] Ginkgo 2019-0 Yes [facility] [place] 120 1-16 ity of mg Tab 00:00: [place] 00 Medical Branch Ginkgo 2019-0 Yes [facility] [place] 120 1-16 ity of mg Tab 00:00: [place] 00 Medical Branch Ginkgo 2019-0 Yes [facility] [place] 120 1-16 ity of mg Tab 00:00: [place] 00 Medical Branch Ginkgo 2019-0 Yes [facility] [place] 120 1-16 ity of mg Tab 00:00: [place] [facility] Ginkgo 2019-0 Yes [facility] [place] [...] [place] 00 Medical Branch FERROUS 2018-0 Yes [id number] TAKE ONE [facility] SULFATE 325 8-13 TABLET BY ity of mg (65 mg 00:00: MOUTH [place] iron) 00 THREE Medical tablet TIMES Branch DAILY WITH MEALS FERROUS Yes [id number] TAKE ONE [facility] SULFATE 325 8-13 TABLET BY ity of mg (65 mg 00:00: MOUTH [place] iron) 00 THREE Medical tablet TIMES Branch DAILY WITH MEALS FERROUS Yes [id number] TAKE ONE [facility] SULFATE 325 8-13 TABLET BY ity of mg (65 mg 00:00: MOUTH [place] iron) 00 THREE Medical tablet TIMES Branch DAILY WITH MEALS FERROUS Yes [id number] TAKE ONE [facility] SULFATE 325 8-13 TABLET BY ity of mg (65 mg 00:00: MOUTH [place] iron) 00 THREE Medical tablet TIMES Branch DAILY WITH MEALS FERROUS Yes [id number] TAKE ONE Uni vers SULFATE 325 8-13 TABLET BY ity of mg (65 mg 00:00: MOUTH [place] [facility]) 00 THREE Medical tablet TIMES Branch DAILY WITH MEALS FERROUS Yes [id number] TAKE ONE Uni vers SULFATE 325 8-13 TABLET BY ity of mg (65 mg 00:00: MOUTH [place] iron) 00 THREE Medical tablet TIMES Branch DAILY WITH MEALS FERROUS Yes [id number] TAKE ONE Uni vers SULFATE 325 8-13 TABLET BY ity of mg (65 mg 00:00: MOUTH [place] iron) 00 THREE Medical tablet TIMES Branch DAILY WITH MEALS FERROUS Yes [id number] TAKE ONE Uni vers SULFATE 325 8-13 TABLET BY ity of mg (65 mg 00:00: MOUTH [place] iron) 00 THREE Medical tablet TIMES Branch DAILY WITH MEALS FERROUS Yes [id number] TAKE ONE Uni vers SULFATE 325 8-13 TABLET BY ity of mg (65 mg 00:00: MOUTH [place] iron) 00 THREE Medical tablet TIMES Branch DAILY WITH MEALS FERROUS Yes [id number] TAKE ONE Uni vers SULFATE 325 8-13 TABLET BY ity of mg (65 mg 00:00: MOUTH [place] iron) 00 THREE Medical tablet TIMES Branch DAILY WITH MEALS FERROUS Yes [id number] TAKE ONE Uni vers SULFATE 325 8-13 TABLET BY ity of mg (65 mg 00:00: MOUTH [place] iron) 00 THREE Medical tablet TIMES Branch DAILY WITH MEALS FERROUS Yes [id number] TAKE ONE Uni vers SULFATE 325 8-13 TABLET BY ity of mg (65 mg 00:00: MOUTH [place] iron) 00 THREE Medical tablet TIMES Branch DAILY WITH MEALS FERROUS Yes [id number] TAKE ONE Uni vers SULFATE 325 8-13 TABLET BY ity of mg (65 mg 00:00: MOUTH [place] iron) 00 THREE Medical tablet TIMES Branch DAILY WITH MEALS FERROUS Yes [id number] TAKE ONE Uni vers SULFATE 325 8-13 TABLET BY ity of mg (65 mg 00:00: MOUTH [place] iron) 00 THREE Medical tablet TIMES Branch DAILY WITH MEALS FERROUS Yes [id number] TAKE ONE Uni vers SULFATE 325 8-13 TABLET BY ity of mg (65 mg 00:00: MOUTH [place] iron) 00 THREE Medical tablet TIMES Branch DAILY WITH MEALS FERROUS Yes [id number] TAKE ONE Uni vers SULFATE 325 8-13 TABLET BY ity of mg (65 mg 00:00: MOUTH [place] iron) 00 THREE Medical tablet TIMES Branch DAILY WITH MEALS coQ10, Yes [id number] 1{capsu Take 1 U nivers ubiquinol, 1-16 le} capsule by ity of 100 mg Cap 00:00: mouth [place] 00 daily. Medical Branch coQ10, Yes [id number] 1{capsu Take 1 U nivers ubiquinol, 1-16 le} capsule by ity of 100 mg Cap 00:00: mouth [place] 00 daily. Medical Branch coQ10, Yes [id number] 1{capsu Take 1 U nivers ubiquinol, 1-16 le} capsule by ity of 100 mg Cap 00:00: mouth [place] 00 daily. Medical Branch coQ10, Yes [id number] 1{capsu Take 1 U nivers ubiquinol, 1-16 le} capsule by ity of 100 mg Cap 00:00: mouth [place] 00 daily. Medical Branch coQ10, Yes [id number] 1{capsu Take 1 U nivers ubiquinol, 1-16 le} capsule by ity of 100 mg Cap 00:00: mouth [place] 00 daily. Medical Branch coQ10, Yes [id number] 1{capsu Take 1 U nivers ubiquinol, 1-16 le} capsule by ity of 100 mg Cap 00:00: mouth [place] 00 daily. Medical Branch coQ10, Yes [id number] 1{capsu Take 1 U nivers ubiquinol, 1-16 le} capsule by ity of 100 mg Cap 00:00: mouth [place] 00 daily. Medical Branch coQ10, Yes [id number] 1{capsu Take 1 U nivers ubiquinol, 1-16 le} capsule by ity of 100 mg Cap 00:00: mouth [place] 00 daily. [facility] Branch coQ10, Yes [id number] 1{capsu Take 1 U nivers ubiquinol, 1-16 le} capsule by ity of 100 mg Cap 00:00: mouth [place] 00 daily. Medical Branch coQ10, Yes [id number] 1{capsu Take 1 U nivers ubiquinol, 1-16 le} capsule by ity of 100 mg Cap 00:00: mouth [place] 00 daily. [facility] Branch coQ10, Yes [id number] 1{capsu Take 1 U nivers ubiquinol, 1-16 le} capsule by ity of 100 mg Cap 00:00: mouth [place] 00 daily. [facility] Branch coQ10, Yes [id number] 1{capsu Take 1 U nivers ubiquinol, 1-16 le} capsule by ity of 100 mg Cap 00:00: mouth [place] 00 daily. [facility] Branch coQ10, Yes [id number] 1{capsu Take 1 U nivers ubiquinol, 1-16 le} capsule by ity of 100 mg Cap 00:00: mouth [place] 00 daily. [facility] Branch coQ10, Yes [id number] 1{capsu Take 1 U nivers ubiquinol, 1-16 le} capsule by ity of 100 mg Cap 00:00: mouth [place] 00 daily. [facility] Branch coQ10, Yes [id number] 1{capsu Take 1 U nivers ubiquinol, 1-16 le} capsule by ity of 100 mg Cap 00:00: mouth [place] 00 daily. [facility] Branch coQ10, Yes [id number] 1{capsu Take 1 U nivers ubiquinol, 1-16 le} capsule by ity of 100 mg Cap 00:00: mouth [place] 00 daily. [facility] Branch loratadine Yes [id number] 10mg Take 1 Univers 10 mg 1-23 tablet by ity of tablet 00:00: mouth [place] 00 daily. [facility] Branch loratadine Yes [id number] 10mg Take 1 Univers 10 mg 1-23 tablet by ity of tablet 00:00: mouth [place] 00 daily. [facility] Branch loratadine Yes [id number] 10mg Take 1 Univers 10 mg 1-23 tablet by ity of tablet 00:00: mouth [place] 00 daily. Medical Branch loratadine Yes [id number] 10mg Take 1 Univers 10 mg 1-23 tablet by ity of tablet 00:00: mouth [place] 00 daily. [facility] Branch loratadine Yes [id number] 10mg Take 1 Univers 10 mg 1-23 tablet by ity of tablet 00:00: mouth [place] 00 daily. [facility] Branch loratadine No [id number] 10mg Take 1 Univers 10 mg 1-23 06-13 tablet by ity of tablet 00:00: 00:00 mouth [place] 00 :00 daily. [facility] Immunizations Ordered Immunization Filled Immunization Date Status Commen ts Source Name Name Twinrix (hep a/hep b) 2022-02-24 Completed Uni versity of 00:00:00 [facility] Twinrix (hep a/hep b) 2022-02-24 Completed Uni versity of 00:00:00 [facility] Twinrix (hep a/hep b) 2022-02-24 Completed Uni versity of 00:00:00 [facility] Twinrix (hep a/hep b) 2022-02-24 Completed Uni versity of 00:00:00 [facility] Twinrix (hep a/hep b) 2022-02-24 Completed Uni versity of 00:00:00 [facility] Twinrix (hep a/hep b) 2022-02-24 Completed Uni versity of 00:00:00 [facility] Twinrix (hep a/hep b) 2022-02-24 Completed Uni versity of 00:00:00 [facility] Twinrix (hep a/hep b) 2022-02-24 Completed Uni versity of 00:00:00 [facility] Twinrix (hep a/hep b) 2022-02-24 Completed Uni versity of 00:00:00 [facility] Twinrix (hep a/hep b) 2022-02-24 Completed Uni versity of 00:00:00 [facility]rix (hep a/hep b) 2022-02-24 Completed Uni versity of 00:00:00 [facility] Twinrix (hep a/hep b) 2022-02-24 Completed Uni versity of 00:00:00 [place] [facility] (hep a/hep b) 2022-02-24 Completed Uni versity of 00:00:00 [place] [facility] (hep a/hep b) 2022-02-24 Completed Uni versity of 00:00:00 [place] [facility] (hep a/hep b) 2022-02-24 Completed Uni versity of 00:00:00 [place] [facility] (hep a/hep b) 2022-02-24 Completed Uni versity of 00:00:00 [place] [facility] (hep a/hep b) 2022-01-14 Completed Uni versity of 00:00:00 [place] [facility] (hep a/hep b) 2022-01-14 Completed Uni versity of 00:00:00 [facility] [place] [facility] Twinrix (hep a/hep b) 2022-01-14 Completed Uni versity of 00:00:00 [facility] [place] [facility] Twinrix (hep a/hep b) 2022-01-14 Completed Uni versity of 00:00:00 [facility] [place] [facility] Twinrix (hep a/hep b) 2022-01-14 Completed Uni versity of 00:00:00 [facility] [place] [facility] Twinrix (hep a/hep b) 2022-01-14 Completed Uni versity of 00:00:00 [facility] [place] [facility] Twinrix (hep a/hep b) 2022-01-14 Completed Uni versity of 00:00:00 [facility] [place] [facility] Twinrix (hep a/hep b) 2022-01-14 Completed Uni versity of 00:00:00 [facility] [place] [facility] Twinrix (hep a/hep b) 2022-01-14 Completed Uni versity of 00:00:00 [place] [facility] (hep a/hep b) 2022-01-14 Completed Uni versity of 00:00:00 [place] [facility] (hep a/hep b) 2022-01-14 Completed Uni versity of 00:00:00 [facility] [place] [facility] Twinrix (hep a/hep b) 2022-01-14 Completed Uni versity of 00:00:00 [facility] [place] [facility] Twinrix (hep a/hep b) 2022-01-14 Completed Uni versity of 00:00:00 [facility] Twinrix (hep a/hep b) 2022-01-14 Completed Uni versity of 00:00:00 [facility] Twinrix (hep a/hep b) 2022-01-14 Completed Uni versity of 00:00:00 [facility] Twinrix (hep a/hep b) 2022-01-14 Completed Uni versity of 00:00:00 [facility] SARS-COV-2 COVID-19 2021-07-23 Completed Unive rsity of PFIZER VACCINE 00:00:00 [facility] Branch SARS-COV-2 COVID-19 2021-07-23 Completed Unive rsity of PFIZER VACCINE 00:00:00 [facility] Branch SARS-COV-2 COVID-19 2021-07-23 Completed Unive rsity of PFIZER VACCINE 00:00:00 [facility] [place] [facility] SARS-COV-2 COVID-19 2021-07-23 Completed Unive rsity of PFIZER VACCINE 00:00:00 [facility] [place] [facility] SARS-COV-2 COVID-19 2021-07-23 Completed Unive rsity of PFIZER VACCINE 00:00:00 [facility] [place] [facility] SARS-COV-2 COVID-19 2021-07-23 Completed Unive rsity of PFIZER VACCINE 00:00:00 [facility] SARS-COV-2 COVID-19 2021-07-23 Completed Unive rsity of PFIZER VACCINE 00:00:00 [facility] [place] [facility] SARS-COV-2 COVID-19 2021-07-23 Completed Unive rsity of PFIZER VACCINE 00:00:00 [facility] SARS-COV-2 COVID-19 2021-07-23 Completed Unive rsity of PFIZER VACCINE 00:00:00 [facility] SARS-COV-2 COVID-19 2021-07-23 Completed Unive rsity of PFIZER VACCINE 00:00:00 [facility] [place] [facility] SARS-COV-2 COVID-19 2021-07-23 Completed Unive rsity of PFIZER VACCINE 00:00:00 [facility] [place] [facility] SARS-COV-2 COVID-19 2021-07-23 Completed Unive rsity of PFIZER VACCINE 00:00:00 [facility] [place] [facility] SARS-COV-2 COVID-19 2021-07-23 Completed Unive rsity of PFIZER VACCINE 00:00:00 [facility] [place] [facility] SARS-COV-2 COVID-19 2021-07-23 Completed Unive rsity of PFIZER VACCINE 00:00:00 [facility] [place] [facility] SARS-COV-2 COVID-19 2021-07-23 Completed Unive rsity of PFIZER VACCINE 00:00:00 [facility] [place] [facility] SARS-COV-2 COVID-19 2021-07-23 Completed Unive rsity of PFIZER VACCINE 00:00:00 [facility] [place] [facility] Influenza Virus 2021-05-27 Completed Universit y of Vaccine (3+ yrs) 00:00:00 [facility] Influenza Virus 2021-05-27 Completed Universit y of Vaccine (3+ yrs) 00:00:00 [facility] Influenza Virus 2021-05-27 Completed Universit y of Vaccine (3+ yrs) 00:00:00 [facility] Influenza Virus 2021-05-27 Completed Universit y of Vaccine (3+ yrs) 00:00:00 [facility] Influenza Virus 2021-05-27 Completed Universit y of Vaccine (3+ yrs) 00:00:00 [facility] Influenza Virus 2021-05-27 Completed Universit y of Vaccine (3+ yrs) 00:00:00 [facility] Influenza Virus 2021-05-27 Completed Universit y of Vaccine (3+ yrs) 00:00:00 [facility] Influenza Virus 2021-05-27 Completed Universit y of Vaccine (3+ yrs) 00:00:00 [facility] Influenza Virus 2021-05-27 Completed Universit y of Vaccine (3+ yrs) 00:00:00 [facility] Influenza Virus 2021-05-27 Completed Universit y of Vaccine (3+ yrs) 00:00:00 [facility] Influenza Virus 2021-05-27 Completed Universit y of Vaccine (3+ yrs) 00:00:00 [facility] Influenza Virus 2021-05-27 Completed Universit y of Vaccine (3+ yrs) 00:00:00 [facility] Influenza Virus 2021-05-27 Completed Universit y of Vaccine (3+ yrs) 00:00:00 [facility] Influenza Virus 2021-05-27 Completed Universit y of Vaccine (3+ yrs) 00:00:00 [facility] Influenza Virus 2021-05-27 Completed Universit y of Vaccine (3+ yrs) 00:00:00 [facility] Branch Influenza Virus 2021-05-27 Completed Universit y of Vaccine (3+ yrs) 00:00:00 [facility] SARS-COV-2 COVID-19 2020-12-13 Completed Unive rsity of PFIZER VACCINE 00:00:00 [facility] Branch SARS-COV-2 COVID-19 2020-12-13 Completed Unive rsity of PFIZER VACCINE 00:00:00 [facility] SARS-COV-2 COVID-19 2020-12-13 Completed Unive rsity of PFIZER VACCINE 00:00:00 [facility] SARS-COV-2 COVID-19 2020-12-13 Completed Unive rsity of PFIZER VACCINE 00:00:00 [facility] [place] [facility] SARS-COV-2 COVID-19 2020-12-13 Completed Unive rsity of PFIZER VACCINE 00:00:00 [facility] SARS-COV-2 COVID-19 2020-12-13 Completed Unive rsity of PFIZER VACCINE 00:00:00 [facility] [place] [facility] SARS-COV-2 COVID-19 2020-12-13 Completed Unive rsity of PFIZER VACCINE 00:00:00 [facility] SARS-COV-2 COVID-19 2020-12-13 Completed Unive rsity of PFIZER VACCINE 00:00:00 [facility] [place] [facility] SARS-COV-2 COVID-19 2020-12-13 Completed Unive rsity of PFIZER VACCINE 00:00:00 [facility] SARS-COV-2 COVID-19 2020-12-13 Completed Unive rsity of PFIZER VACCINE 00:00:00 [facility] SARS-COV-2 COVID-19 2020-12-13 Completed Unive rsity of PFIZER VACCINE 00:00:00 [facility] SARS-COV-2 COVID-19 2020-12-13 Completed Unive rsity of PFIZER VACCINE 00:00:00 [facility] [place] [facility] SARS-COV-2 COVID-19 2020-12-13 Completed Unive rsity of PFIZER VACCINE 00:00:00 [facility] [place] [facility] SARS-COV-2 COVID-19 2020-12-13 Completed Unive rsity of PFIZER VACCINE 00:00:00 [facility] SARS-COV-2 COVID-19 2020-12-13 Completed Unive rsity of PFIZER VACCINE 00:00:00 [facility] SARS-COV-2 COVID-19 2020-12-13 Completed Unive rsity of PFIZER VACCINE 00:00:00 [facility] SARS-COV-2 COVID-19 2020-11-22 Completed Unive rsity of PFIZER VACCINE 00:00:00 [facility] SARS-COV-2 COVID-19 2020-11-22 Completed Unive rsity of PFIZER VACCINE 00:00:00 [facility] SARS-COV-2 COVID-19 2020-11-22 Completed Unive rsity of PFIZER VACCINE 00:00:00 [facility] SARS-COV-2 COVID-19 2020-11-22 Completed Unive rsity of PFIZER VACCINE 00:00:00 [facility] SARS-COV-2 COVID-19 2020-11-22 Completed Unive rsity of PFIZER VACCINE 00:00:00 [facility] SARS-COV-2 COVID-19 2020-11-22 Completed Unive rsity of PFIZER VACCINE 00:00:00 [facility] SARS-COV-2 COVID-19 2020-11-22 Completed Unive rsity of PFIZER VACCINE 00:00:00 [facility] SARS-COV-2 COVID-19 2020-11-22 Completed Unive rsity of PFIZER VACCINE 00:00:00 [facility] SARS-COV-2 COVID-19 2020-11-22 Completed Unive rsity of PFIZER VACCINE 00:00:00 [facility] SARS-COV-2 COVID-19 2020-11-22 Completed Unive rsity of PFIZER VACCINE 00:00:00 [facility] SARS-COV-2 COVID-19 2020-11-22 Completed Unive rsity of PFIZER VACCINE 00:00:00 [facility] SARS-COV-2 COVID-19 2020-11-22 Completed Unive rsity of PFIZER VACCINE 00:00:00 [facility] SARS-COV-2 COVID-19 2020-11-22 Completed Unive rsity of PFIZER VACCINE 00:00:00 [facility] SARS-COV-2 COVID-19 2020-11-22 Completed Unive rsity of PFIZER VACCINE 00:00:00 [facility] [place] [facility] SARS-COV-2 COVID-19 2020-11-22 Completed Unive rsity of PFIZER VACCINE 00:00:00 [facility] [place] [facility] SARS-COV-2 COVID-19 2020-11-22 Completed Unive rsity of PFIZER VACCINE 00:00:00 [facility] [place] [facility] Influenza Virus 2020-05-27 Completed Universit y of Vaccine Recomb Quad 00:00:00 [place] [facility], Preserv and ABX Branc h Free 18-64 YRS Influenza Virus 2020-05-27 Completed Universit y of Vaccine Recomb Quad 00:00:00 [place] [facility], Preserv and ABX Branc h Free 18-64 YRS Influenza Virus 2020-05-27 Completed Universit y of Vaccine Recomb Quad 00:00:00 [place] [facility], Preserv and ABX Branc h Free 18-64 YRS Influenza Virus 2020-05-27 Completed Universit y of Vaccine Recomb Quad 00:00:00 [place] [facility], Preserv and ABX Branc h Free 18-64 YRS Influenza Virus 2020-05-27 Completed Universit y of Vaccine Recomb Quad 00:00:00 [place] [facility], Preserv and ABX Branc h Free 18-64 YRS Influenza Virus 2020-05-27 Completed Universit y of Vaccine Recomb Quad 00:00:00 [place] [facility], Preserv and ABX Branc h Free 18-64 YRS Influenza Virus 2020-05-27 Completed Universit y of Vaccine Recomb Quad 00:00:00 [place] [facility], Preserv and ABX Branc h Free 18-64 YRS Influenza Virus 2020-05-27 Completed Universit y of Vaccine Recomb Quad 00:00:00 [place] [facility], Preserv and ABX Branc h Free 18-64 YRS Influenza Virus 2020-05-27 Completed Universit y of Vaccine Recomb Quad 00:00:00 [place] [facility], Preserv and ABX Branc h Free 18-64 YRS Influenza Virus 2020-05-27 Completed Universit y of Vaccine Recomb Quad 00:00:00 [place] [facility], Preserv and ABX Branc h Free 18-64 YRS Influenza Virus 2020-05-27 Completed Universit y of Vaccine Recomb Quad 00:00:00 [place] [facility], Preserv and ABX Branc h Free 18-64 YRS Influenza Virus 2020-05-27 Completed Universit y of Vaccine Recomb Quad 00:00:00 [place] [facility], Preserv and ABX Branc h Free 18-64 YRS Influenza Virus 2020-05-27 Completed Universit y of Vaccine Recomb Quad 00:00:00 [place] [facility], Preserv and ABX Branc h Free 18-64 YRS Influenza Virus 2020-05-27 Completed Universit y of Vaccine Recomb Quad 00:00:00 [place] [facility], Preserv and ABX Branc h Free 18-64 YRS Influenza Virus 2020-05-27 Completed Universit y of Vaccine Recomb Quad 00:00:00 [place] [facility], Preserv and ABX Branc h Free 18-64 YRS Influenza Virus 2020-05-27 Completed Universit y of Vaccine Recomb Quad 00:00:00 [place] [facility], Preserv and ABX Branc h Free 18-64 YRS TDAP (ADACEL) VACCINE 2019-08-10 Completed Uni versity of 00:00:00 [facility] TDAP 2019-08-10 Completed University of 00:00:00 [facility] Pneumococcal 2019-08-10 Completed University o f Polysaccharide, 00:00:00 [place] [facility] PPSV23 (PNEUMOVAX) Branch TDAP (ADACEL) VACCINE 2019-08-10 Completed Uni versity of 00:00:00 [facility] TDAP 2019-08-10 Completed University of 00:00:00 [facility] Pneumococcal 2019-08-10 Completed University o f Polysaccharide, 00:00:00 [place] [facility] PPSV23 (PNEUMOVAX) Branch TDAP (ADACEL) VACCINE 2019-08-10 Completed Uni versity of 00:00:00 [facility] TDAP 2019-08-10 Completed University of 00:00:00 [facility] Pneumococcal 2019-08-10 Completed University o f Polysaccharide, 00:00:00 [place] [facility] PPSV23 (PNEUMOVAX) Branch TDAP (ADACEL) VACCINE 2019-08-10 Completed Uni versity of 00:00:00 [facility] TDAP 2019-08-10 Completed University of 00:00:00 [facility] Pneumococcal 2019-08-10 Completed University o f Polysaccharide, 00:00:00 [place] [facility] PPSV23 (PNEUMOVAX) Branch TDAP (ADACEL) VACCINE 2019-08-10 Completed Uni versity of 00:00:00 [facility] TDAP 2019-08-10 Completed University of 00:00:00 [facility] [place] [facility] Branch Pneumococcal 2019-08-10 Completed University o f Polysaccharide, 00:00:00 [place] [facility] PPSV23 (PNEUMOVAX) Branch TDAP (ADACEL) VACCINE 2019-08-10 Completed Uni versity of 00:00:00 [facility] TDAP 2019-08-10 Completed University of 00:00:00 [facility] [place] [facility] Pneumococcal 2019-08-10 Completed University o f Polysaccharide, 00:00:00 [place] [facility] PPSV23 (PNEUMOVAX) Branch TDAP (ADACEL) VACCINE 2019-08-10 Completed Uni versity of 00:00:00 [facility] [place] [facility] TDAP 2019-08-10 Completed University of 00:00:00 [facility] [place] [facility] Pneumococcal 2019-08-10 Completed University o f Polysaccharide, 00:00:00 [place] [facility] PPSV23 (PNEUMOVAX) Branch TDAP (ADACEL) VACCINE 2019-08-10 Completed Uni versity of 00:00:00 [facility] TDAP 2019-08-10 Completed University of 00:00:00 [facility] Pneumococcal 2019-08-10 Completed University o f Polysaccharide, 00:00:00 [place] [facility] PPSV23 (PNEUMOVAX) Branch TDAP (ADACEL) VACCINE 2019-08-10 Completed Uni versity of 00:00:00 [facility] TDAP 2019-08-10 Completed University of 00:00:00 [facility] [place] [facility] Pneumococcal 2019-08-10 Completed University o f Polysaccharide, 00:00:00 [place] [facility] PPSV23 (PNEUMOVAX) Branch TDAP (ADACEL) VACCINE 2019-08-10 Completed Uni versity of 00:00:00 [facility] [place] [facility] TDAP 2019-08-10 Completed University of 00:00:00 [facility] [place] [facility] Pneumococcal 2019-08-10 Completed University o f Polysaccharide, 00:00:00 [place] [facility] PPSV23 (PNEUMOVAX) Branch TDAP (ADACEL) VACCINE 2019-08-10 Completed Uni versity of 00:00:00 [facility] [place] [facility] TDAP 2019-08-10 Completed University of 00:00:00 [facility] [place] [facility] Pneumococcal 2019-08-10 Completed University o f Polysaccharide, 00:00:00 [place] [facility] PPSV23 (PNEUMOVAX) Branch TDAP (ADACEL) VACCINE 2019-08-10 Completed Uni versity of 00:00:00 [facility] TDAP 2019-08-10 Completed University of 00:00:00 [facility] Pneumococcal 2019-08-10 Completed University o f Polysaccharide, 00:00:00 [facility] ical PPSV23 (PNEUMOVAX) Branch TDAP (ADACEL) VACCINE 2019-08-10 Completed Uni versity of 00:00:00 [facility] TDAP 2019-08-10 Completed University of 00:00:00 [facility] Pneumococcal 2019-08-10 Completed University o f Polysaccharide, 00:00:00 [place] [facility] PPSV23 (PNEUMOVAX) Branch TDAP (ADACEL) VACCINE 2019-08-10 Completed Uni versity of 00:00:00 [facility] TDAP 2019-08-10 Completed University of 00:00:00 [facility] Pneumococcal 2019-08-10 Completed University o f Polysaccharide, 00:00:00 [facility] ical PPSV23 (PNEUMOVAX) Branch TDAP (ADACEL) VACCINE 2019-08-10 Completed Uni versity of 00:00:00 [facility] TDAP 2019-08-10 Completed University of 00:00:00 [facility] Pneumococcal 2019-08-10 Completed University o f Polysaccharide, 00:00:00 [facility] ical PPSV23 (PNEUMOVAX) Branch TDAP (ADACEL) VACCINE 2019-08-10 Completed Uni versity of 00:00:00 [facility] TDAP 2019-08-10 Completed University of 00:00:00 [facility] Pneumococcal 2019-08-10 Completed University o f Polysaccharide, 00:00:00 [facility] ical PPSV23 (PNEUMOVAX) Branch Influenza Virus 2019-07-04 Completed Universit y of Vaccine 00:00:00 [facility] Influenza Virus 2019-07-04 Completed Universit y of Vaccine Recomb Quad 00:00:00 [facility], Preserv and ABX Branc h Free 18-64 YRS Influenza Virus 2019-07-04 Completed Universit y of Vaccine 00:00:00 [facility] Influenza Virus 2019-07-04 Completed Universit y of Vaccine Recomb Quad 00:00:00 [facility], Preserv and ABX Branc h Free 18-64 YRS Influenza Virus 2019-07-04 Completed Universit y of Vaccine 00:00:00 [facility] Influenza Virus 2019-07-04 Completed Universit y of Vaccine Recomb Quad 00:00:00 [facility], Preserv and ABX Branc h Free 18-64 YRS Influenza Virus 2019-07-04 Completed Universit y of Vaccine 00:00:00 [facility] Influenza Virus 2019-07-04 Completed Universit y of Vaccine Recomb Quad 00:00:00 [facility], Preserv and ABX Branc h Free 18-64 YRS Influenza Virus 2019-07-04 Completed Universit y of Vaccine 00:00:00 [facility] Influenza Virus 2019-07-04 Completed Universit y of Vaccine Recomb Quad 00:00:00 [facility], Preserv and ABX Branc h Free 18-64 YRS Influenza Virus 2019-07-04 Completed Universit y of Vaccine 00:00:00 [facility] Influenza Virus 2019-07-04 Completed Universit y of Vaccine Recomb Quad 00:00:00 [facility], Preserv and ABX Branc h Free 18-64 YRS Influenza Virus 2019-07-04 Completed Universit y of Vaccine 00:00:00 [facility] Influenza Virus 2019-07-04 Completed Universit y of Vaccine Recomb Quad 00:00:00 [facility], Preserv and ABX Branc h Free 18-64 YRS Influenza Virus 2019-07-04 Completed Universit y of Vaccine 00:00:00 [facility] Influenza Virus 2019-07-04 Completed Universit y of Vaccine Recomb Quad 00:00:00 [facility], Preserv and ABX Branc h Free 18-64 YRS Influenza Virus 2019-07-04 Completed Universit y of Vaccine 00:00:00 [facility] Influenza Virus 2019-07-04 Completed Universit y of Vaccine Recomb Quad 00:00:00 [facility], Preserv and ABX Branc h Free 18-64 YRS Influenza Virus 2019-07-04 Completed Universit y of Vaccine 00:00:00 [facility] Influenza Virus 2019-07-04 Completed Universit y of Vaccine Recomb Quad 00:00:00 [facility], Preserv and ABX Branc h Free 18-64 YRS Influenza Virus 2019-07-04 Completed Universit y of Vaccine 00:00:00 [facility] Influenza Virus 2019-07-04 Completed Universit y of Vaccine Recomb Quad 00:00:00 [facility], Preserv and ABX Branc h Free 18-64 YRS Influenza Virus 2019-07-04 Completed Universit y of Vaccine 00:00:00 [facility] Influenza Virus 2019-07-04 Completed Universit y of Vaccine Recomb Quad 00:00:00 [facility], Preserv and ABX Branc h Free 18-64 YRS Influenza Virus 2019-07-04 Completed Universit y of Vaccine 00:00:00 [facility] Influenza Virus 2019-07-04 Completed Universit y of Vaccine Recomb Quad 00:00:00 [facility], Preserv and ABX Branc h Free 18-64 YRS Influenza Virus 2019-07-04 Completed Universit y of Vaccine 00:00:00 [facility] Influenza Virus 2019-07-04 Completed Universit y of Vaccine Recomb Quad 00:00:00 [facility], Preserv and ABX Branc h Free 18-64 YRS Influenza Virus 2019-07-04 Completed Universit y of Vaccine 00:00:00 [facility] Influenza Virus 2019-07-04 Completed Universit y of Vaccine Recomb Quad 00:00:00 [facility], Preserv and ABX Branc h Free 18-64 YRS Influenza Virus 2019-07-04 Completed Universit y of Vaccine 00:00:00 [facility] Influenza Virus 2019-07-04 Completed Universit y of Vaccine Recomb Quad 00:00:00 [facility], Preserv and ABX Branc h Free 1864 YRS Influenza Virus 2018-06-30 Completed Universit y of Vaccine Quad IM 3+ 00:00:00 [facility] Influenza Virus 2018-06-30 Completed Universit y of Vaccine Quad IM 3+ 00:00:00 [facility] Influenza Virus 2018-06-30 Completed Universit y of Vaccine Quad IM 3+ 00:00:00 [facility] Influenza Virus 2018-06-30 Completed Universit y of Vaccine Quad IM 3+ 00:00:00 [facility] Influenza Virus 2018-06-30 Completed Universit y of Vaccine Quad IM 3+ 00:00:00 [facility] Influenza Virus 2018-06-30 Completed Universit y of Vaccine Quad IM 3+ 00:00:00 [facility] Influenza Virus 2018-06-30 Completed Universit y of Vaccine Quad IM 3+ 00:00:00 [facility] Influenza Virus 2018-06-30 Completed Universit y of Vaccine Quad IM 3+ 00:00:00 [facility] Influenza Virus 2018-06-30 Completed Universit y of Vaccine Quad IM 3+ 00:00:00 [facility] Branch Influenza Virus 2018-06-30 Completed Universit y of Vaccine Quad IM 3+ 00:00:00 [facility] Branch Influenza Virus 2018-06-30 Completed Universit y of Vaccine Quad IM 3+ 00:00:00 [facility] Branch Influenza Virus 2018-06-30 Completed Universit y of Vaccine Quad IM 3+ 00:00:00 [facility] Branch Influenza Virus 2018-06-30 Completed Universit y of Vaccine Quad IM 3+ 00:00:00 [facility] Branch Influenza Virus 2018-06-30 Completed Universit y of Vaccine Quad IM 3+ 00:00:00 [facility] Branch Influenza Virus 2018-06-30 Completed Universit y of Vaccine Quad IM 3+ 00:00:00 [facility] Influenza Virus 2018-06-30 Completed Universit y of Vaccine Quad IM 3+ 00:00:00 [facility] Influenza Virus 2017-06-15 Completed Universit y of Vaccine Quad ID 18-64 00:00:00 [facility] Branch Influenza Virus 2017-06-15 Completed Universit y of Vaccine Quad ID 18-64 00:00:00 [facility] Branch Influenza Virus 2017-06-15 Completed Universit y of Vaccine Quad ID 18-64 00:00:00 [facility] Branch Influenza Virus 2017-06-15 Completed Universit y of Vaccine Quad ID 18-64 00:00:00 [facility] Branch Influenza Virus 2017-06-15 Completed Universit y of Vaccine Quad ID 18-64 00:00:00 [facility] Branch Influenza Virus 2017-06-15 Completed Universit y of Vaccine Quad ID 18-64 00:00:00 [facility] Branch Influenza Virus 2017-06-15 Completed Universit y of Vaccine Quad ID 18-64 00:00:00 [facility] Branch Influenza Virus 2017-06-15 Completed Universit y of Vaccine Quad ID 18-64 00:00:00 [facility] Branch Influenza Virus 2017-06-15 Completed Universit y of Vaccine Quad ID 18-64 00:00:00 [facility] Branch Influenza Virus 2017-06-15 Completed Universit y of Vaccine Quad ID 18-64 00:00:00 [facility] Branch Influenza Virus 2017-06-15 Completed Universit y of Vaccine Quad ID 18-64 00:00:00 [facility] YRS Branch Influenza Virus 2017-06-15 Completed Universit y of Vaccine Quad ID 18-64 00:00:00 [facility] Branch Influenza Virus 2017-06-15 Completed Universit y of Vaccine Quad ID 18-64 00:00:00 [facility] Branch Influenza Virus 2017-06-15 Completed Universit y of Vaccine Quad ID 18-64 00:00:00 [facility] Branch Influenza Virus 2017-06-15 Completed Universit y of Vaccine Quad ID 18-64 00:00:00 [facility] Branch Influenza Virus 2017-06-15 Completed Universit y of Vaccine Quad ID 18-64 00:00:00 [facility] Branch Influenza Virus 2016-08-05 Completed Universit y of Vaccine Quad IM 00:00:00 [place] [facility] Multi-dose 6+ MO Branch Influenza Virus 2016-08-05 Completed Universit y of Vaccine Quad IM 00:00:00 [place] [facility] Multi-dose 6+ MO Branch Influenza Virus 2016-08-05 Completed Universit y of Vaccine Quad IM 00:00:00 [place] [facility] Multi-dose 6+ MO Branch Influenza Virus 2016-08-05 Completed Universit y of Vaccine Quad IM 00:00:00 [place] [facility] Multi-dose 6+ MO Branch Influenza Virus 2016-08-05 Completed Universit y of Vaccine Quad IM 00:00:00 [place] [facility] Multi-dose 6+ MO Branch Influenza Virus 2016-08-05 Completed Universit y of Vaccine Quad IM 00:00:00 [place] [facility] Multi-dose 6+ MO Branch Influenza Virus 2016-08-05 Completed Universit y of Vaccine Quad IM 00:00:00 [place] [facility] Multi-dose 6+ MO Branch Influenza Virus 2016-08-05 Completed Universit y of Vaccine Quad IM 00:00:00 [place] [facility] Multi-dose 6+ MO Branch Influenza Virus 2016-08-05 Completed Universit y of Vaccine Quad IM 00:00:00 [place] [facility] Multi-dose 6+ MO Branch Influenza Virus 2016-08-05 Completed Universit y of Vaccine Quad IM 00:00:00 [place] [facility] Multi-dose 6+ MO Branch Influenza Virus 2016-08-05 Completed Universit y of Vaccine Quad IM 00:00:00 [place] [facility] Multi-dose 6+ MO Branch Influenza Virus 2016-08-05 Completed Universit y of Vaccine Quad IM 00:00:00 [facility] ical Multi-dose 6+ MO Branch Influenza Virus 2016-08-05 Completed Universit y of Vaccine Quad IM 00:00:00 [place] [facility] Multi-dose 6+ MO Branch Influenza Virus 2016-08-05 Completed Universit y of Vaccine Quad IM 00:00:00 [facility] ical Multi-dose 6+ MO Branch Influenza Virus 2016-08-05 Completed Universit y of Vaccine Quad IM 00:00:00 [facility] ical Multi-dose 6+ MO Branch Influenza Virus 2016-08-05 Completed Universit y of Vaccine Quad [facility] 00:[facility]00 [facility] 6[facility] Branch Pneumococcal 13 2016-03-07 Completed Universit y of Conjugate, PCV13 00:00:00 [facility] dical (Prevnar 13) Branch Meningococcal B, OMV 2016-03-07 Completed Univ ersity of 00:00:00 [facility] Pneumococcal 13 2016-03-07 Completed Universit y of Conjugate, PCV13 00:00:00 [facility] dical (Prevnar 13) Branch Meningococcal B, OMV 2016-03-07 Completed Univ ersity of 00:00:00 [facility] Pneumococcal 13 2016-03-07 Completed Universit y of Conjugate, PCV13 00:00:00 [facility] dical (Prevnar 13) Branch Meningococcal B, OMV 2016-03-07 Completed Univ ersity of 00:00:00 [facility] Pneumococcal 13 2016-03-07 Completed Universit y of Conjugate, PCV13 00:00:00 [facility] dical (Prevnar 13) Branch Meningococcal B, OMV 2016-03-07 Completed Univ ersity of 00:00:00 [facility] Pneumococcal 13 2016-03-07 Completed Universit y of Conjugate, PCV13 00:00:00 [facility] dical (Prevnar 13) Branch Meningococcal B, OMV 2016-03-07 Completed Univ ersity of 00:00:00 [facility] Pneumococcal 13 2016-03-07 Completed Universit y of Conjugate, PCV13 00:00:00 [facility] dical (Prevnar 13) Branch Meningococcal B, OMV 2016-03-07 Completed Univ ersity of 00:00:00 [facility] Pneumococcal 13 2016-03-07 Completed Universit y of Conjugate, PCV13 00:00:00 [facility] dical (Prevnar 13) Branch Meningococcal B, V 2016-03-07 Completed Univ ersity of 00:00:00 [facility] Branch Pneumococcal 13 2016-03-07 Completed Universit y of Conjugate, PCV13 00:00:00 [place] [facility] (Prevnar 13) Branch Meningococcal B, V 2016-03-07 Completed Univ ersity of 00:00:00 [facility] Branch Pneumococcal 13 2016-03-07 Completed Universit y of Conjugate, PCV13 00:00:00 [place] [facility] (Prevnar 13) Branch Meningococcal B, V 2016-03-07 Completed Univ ersity of 00:00:00 [facility] Branch Pneumococcal 13 2016-03-07 Completed Universit y of Conjugate, PCV13 00:00:00 [place] [facility] (Prevnar 13) Branch Meningococcal B, [facility] 2016-03-07 Completed Univ ersity of 00:00:00 [facility] Branch Pneumococcal 13 2016-03-07 Completed Universit y of Conjugate, PCV13 00:00:00 [place] [facility] (Prevnar 13) Branch Meningococcal B, [facility] 2016-03-07 Completed Univ ersity of 00:00:00 [facility] Pneumococcal 13 2016-03-07 Completed Universit y of Conjugate, PCV13 00:00:00 [place] [facility] (Prevnar 13) Branch Meningococcal B, [facility] 2016-03-07 Completed Univ ersity of 00:00:00 [facility] Pneumococcal 13 2016-03-07 Completed Universit y of Conjugate, PCV13 00:00:00 [place] [facility] (Prevnar 13) Branch Meningococcal B, V 2016-03-07 Completed Univ ersity of 00:00:00 [facility] Pneumococcal 13 2016-03-07 Completed Universit y of Conjugate, PCV13 00:00:00 [place] [facility] (Prevnar 13) Branch Meningococcal B, [facility] 2016-03-07 Completed Univ ersity of 00:00:00 [facility] Pneumococcal 13 2016-03-07 Completed Universit y of Conjugate, PCV13 00:00:00 [place] [facility] (Prevnar 13) Branch Meningococcal B, [facility] 2016-03-07 Completed Univ ersity of 00:00:00 [facility] Pneumococcal 13 2016-03-07 Completed Universit y of Conjugate, PCV13 00:00:00 [place] [facility] (Prevnar 13) Branch Meningococcal B, [facility] 2016-03-07 Completed Univ ersity of 00:00:00 [facility] Heamophilus Influenza 2015-11-13 Completed Uni versity of B 00:00:00 [facility] Branch Heamophilus Influenza 2015-11-13 Completed Uni versity of B 00:00:00 [facility] Heamophilus Influenza 2015-11-13 Completed Uni versity of B 00:00:00 [facility] Heamophilus Influenza 2015-11-13 Completed Uni versity of B 00:00:00 [facility] Branch Heamophilus Influenza 2015-11-13 Completed Uni versity of B 00:00:00 [facility] Heamophilus Influenza 2015-11-13 Completed Uni versity of B 00:00:00 [facility] Branch Heamophilus Influenza 2015-11-13 Completed Uni versity of B 00:00:00 [facility] Heamophilus Influenza 2015-11-13 Completed Uni versity of B 00:00:00 [facility] Heamophilus Influenza 2015-11-13 Completed Uni versity of B 00:00:00 [facility] Heamophilus Influenza 2015-11-13 Completed Uni versity of B 00:00:00 [facility] Heamophilus Influenza 2015-11-13 Completed Uni versity of B 00:00:00 [facility] Heamophilus Influenza 2015-11-13 Completed Uni versity of B 00:00:00 [facility] Heamophilus Influenza 2015-11-13 Completed Uni versity of B 00:00:00 [facility] Heamophilus Influenza 2015-11-13 Completed Uni versity of B 00:00:00 [facility] Heamophilus Influenza 2015-11-13 Completed Uni versity of B 00:00:00 [facility] Heamophilus Influenza 2015-11-13 Completed Uni versity of B 00:00:00 [facility] Meningococcal 2015-11-12 Completed University of Polysaccharide 00:00:00 [place] [facility] (groups A, C, Y and Branc h W-135) conjugate vaccine (MCV4P) Meningococcal 2015-11-12 Completed University of Polysaccharide 00:00:00 [place] [facility] (groups A, C, Y and Branc h W-135) conjugate vaccine (MCV4P) Meningococcal 2015-11-12 Completed University of Polysaccharide 00:00:00 [place] [facility] (groups A, C, Y and Branc h W-135) conjugate vaccine (MCV4P) Meningococcal 2015-11-12 Completed University of Polysaccharide 00:00:00 [place] [facility] (groups A, C, Y and Branc h W-135) conjugate vaccine (MCV4P) Meningococcal 2015-11-12 Completed University of Polysaccharide 00:00:00 [place] [facility] (groups A, C, Y and Branc h W-135) conjugate vaccine (MCV4P) Meningococcal 2015-11-12 Completed University of Polysaccharide 00:00:00 [place] [facility] (groups A, C, Y and Branc h W-135) conjugate vaccine (MCV4P) Meningococcal 2015-11-12 Completed University of Polysaccharide 00:00:00 [place] [facility] (groups A, C, Y and Branc h W-135) conjugate vaccine (MCV4P) Meningococcal 2015-11-12 Completed University of Polysaccharide 00:00:00 [place] [facility] (groups A, C, Y and Branc h W-135) conjugate vaccine (MCV4P) Meningococcal 2015-11-12 Completed University of Polysaccharide 00:00:00 [place] [facility] (groups A, C, Y and Branc h W-135) conjugate vaccine (MCV4P) Meningococcal 2015-11-12 Completed University of Polysaccharide 00:00:00 [place] [facility] (groups A, C, Y and Branc h W-135) conjugate vaccine (MCV4P) Meningococcal 2015-11-12 Completed University of Polysaccharide 00:00:00 [place] [facility] (groups A, C, Y and Branc h W-135) conjugate vaccine (MCV4P) Meningococcal 2015-11-12 Completed University of Polysaccharide 00:00:00 [place] [facility] (groups A, C, Y and Branc h W-135) conjugate vaccine (MCV4P) Meningococcal 2015-11-12 Completed University of Polysaccharide 00:00:00 [place] [facility] (groups A, C, Y and Branc h W-135) conjugate vaccine (MCV4P) Meningococcal 2015-11-12 Completed University of Polysaccharide 00:00:00 [place] [facility] (groups A, C, Y and Branc h W-135) conjugate vaccine (MCV4P) Meningococcal 2015-11-12 Completed University of Polysaccharide 00:00:00 [place] [facility] (groups A, C, Y and Branc h W-135) conjugate vaccine (MCV4P) Meningococcal 2015-11-12 Completed University of Polysaccharide 00:00:00 [facility] cipriano (groups A, C, Y and Branc h W-135) conjugate vaccine (MCV4P) TDAP 2015-10-31 Completed University of 00:00:00 [facility] TDAP 2015-10-31 Completed University of 00:00:00 [facility] TDAP 2015-10-31 Completed University of 00:00:00 [facility] TDAP 2015-10-31 Completed University of 00:00:00 [facility] TDAP 2015-10-31 Completed University of 00:00:00 [facility] TDAP 2015-10-31 Completed University of 00:00:00 [facility] TDAP 2015-10-31 Completed University of 00:00:00 [facility] TDAP 2015-10-31 Completed University of 00:00:00 [facility] TDAP 2015-10-31 Completed University of 00:00:00 [facility] TDAP 2015-10-31 Completed University of 00:00:00 [facility] TDAP 2015-10-31 Completed University of 00:00:00 [facility] TDAP 2015-10-31 Completed University of 00:00:00 [facility] TDAP 2015-10-31 Completed University of 00:00:00 [facility] TDAP 2015-10-31 Completed University of 00:00:00 [facility] TDAP 2015-10-31 Completed University of 00:00:00 [facility] TDAP 2015-10-31 Completed University of 00:00:00 [facility] Pneumococcal 2014-04-01 Completed University o f Polysaccharide, 00:00:00 [place] [facility] PPSV23 (PNEUMOVAX) Branch Pneumococcal 2014-04-01 Completed University o f Polysaccharide, 00:00:00 [place] [facility] PPSV23 (PNEUMOVAX) Branch Pneumococcal 2014-04-01 Completed University o f Polysaccharide, 00:00:00 [place] [facility] PPSV23 (PNEUMOVAX) Branch Pneumococcal 2014-04-01 Completed University o f Polysaccharide, 00:00:00 [place] [facility] PPSV23 (PNEUMOVAX) Branch Pneumococcal 2014-04-01 Completed University o f Polysaccharide, 00:00:00 [place] [facility] PPSV23 (PNEUMOVAX) Branch Pneumococcal 2014-04-01 Completed University o f Polysaccharide, 00:00:00 [place] [facility] PPSV23 (PNEUMOVAX) Branch Pneumococcal 2014-04-01 Completed University o f Polysaccharide, 00:00:00 [place] [facility] PPSV23 (PNEUMOVAX) Branch Pneumococcal 2014-04-01 Completed University o f Polysaccharide, 00:00:00 [place] [facility] PPSV23 (PNEUMOVAX) Branch Pneumococcal 2014-04-01 Completed University o f Polysaccharide, 00:00:00 [place] [facility] PPSV23 (PNEUMOVAX) Branch Pneumococcal 2014-04-01 Completed University o f Polysaccharide, 00:00:00 [place] [facility] PPSV23 (PNEUMOVAX) Branch Pneumococcal 2014-04-01 Completed University o f Polysaccharide, 00:00:00 [place] [facility] PPSV23 (PNEUMOVAX) Branch Pneumococcal 2014-04-01 Completed University o f Polysaccharide, 00:00:00 [place] [facility] PPSV23 (PNEUMOVAX) Branch Pneumococcal 2014-04-01 Completed University o f Polysaccharide, 00:00:00 [place] [facility] PPSV23 (PNEUMOVAX) Branch Pneumococcal 2014-04-01 Completed University o f Polysaccharide, 00:00:00 [place] [facility] PPSV23 (PNEUMOVAX) Branch Pneumococcal 2014-04-01 Completed University o f Polysaccharide, 00:00:00 [place] [facility] PPSV23 (PNEUMOVAX) Branch Pneumococcal 2014-04-01 Completed University o f Polysaccharide, 00:00:00 [place] [facility] PPSV23 (PNEUMOVAX) Branch Vital Signs Vital Name Observation Time Observation Value Comments Source Systolic blood 2022-03-27 12:44:00 131 mm[Hg] Univer sity of pressure [facility] Diastolic blood 2022-03-27 12:44:00 83 mm[facility]Hg[facility] 2022-03-27 12:44:00 102 /min [facility] Body temperature 2022-03-27 12:44:00 37.11 [facility] Respiratory rate 2022-03-27 12:44:00 18 /min [facility] Body height 2022-03-27 12:44:00 157.5 cm [facility] Body weight 2022-03-27 12:44:00 96.616 kg [facility] BMI 2022-03-27 12:44:00 38.96 kg/m2 [facility] Oxygen saturation in 2022-03-27 12:44:00 98 /min University of Arterial blood by [facility] Pulse oximetry Branch Systolic blood 2022-03-02 15:40:00 113 mm[Hg] Univer sity of pressure [facility] Diastolic blood 2022-03-02 15:40:00 72 mm[Hg] Unive rsity of pressure [facility] Heart rate 2022-03-02 15:40:00 82 /min Universi ty of [facility] Branch Respiratory rate 2022-03-02 15:40:00 16 /min Univ ersity of [facility] Branch Oxygen saturation in 2022-03-02 15:40:00 97 /min University of Arterial blood by [facility] Pulse oximetry Branch Body temperature 2022-03-02 15:23:00 36.28 Melissa Univ ersity of [facility] Body weight 2022-02-24 17:00:00 100.245 kg Universi ty of [facility] BMI 2022-02-24 17:00:00 40.42 kg/m2 Universi ty of [facility] Branch Systolic blood 2022-03-02 15:25:00 98 mm[Hg] Univer sity of pressure [facility] Diastolic blood 2022-03-02 15:25:00 55 mm[Hg] Unive rsity of pressure [facility] Heart rate 2022-03-02 15:25:00 85 /min Universi ty of [facility] Respiratory rate 2022-03-02 15:25:00 18 /min Univ ersity of [facility] Oxygen saturation in 2022-03-02 15:25:00 100 /min University of Arterial blood by [facility] Pulse oximetry Branch Body temperature 2022-03-02 15:23:00 36.28 Melissa Univ ersity of [facility] Body weight 2022-02-24 17:00:00 100.245 kg Universi ty of [facility] BMI 2022-02-24 17:00:00 40.42 kg/m2 Universi ty of [facility] Procedures Procedure Date / Time Performing Source Performed Clinician MARIA FERNANDA/NCV 2022-04-08 Stella Worley [facility] 14:43:00 [facility] CONSENT/REFUSAL FOR DIAGNOSIS AND 2022-03-27 [facility] 12:40:53 Unassigned, No [facility] COLONOSCOPY (ENDO) 2022-03-02 Tray Jolly [facility] of 14:43:32 Edward [facility] COLONOSCOPY (ENDO) 2022-03-02 Tray Jolly [facility] 14:43:32 [facility] 2022-03-02 Cecile M[facility]quez [facility] of 14:02:00 [facility] ESOPHAGOGASTRODUODENOSCOPY 2022-03-02 [facility] of 14:02:00 [facility] EGD (ENDO) 2022-03-02 [facility]ik [facility] 13:53:24 [facility] 2022-03-02 Rik [facility] 13:53:24 [facility] POCT GLUCOSE(AGE >30DAYS) 2022-03-02 [facility] ersity of 12:59:00 [facility] POCT GLUCOSE(AGE >30DAYS) 2022-03-02 [facility] of 12:59:00 [facility] POCT GLUCOSE (AUTOMATED) 2022-03-02 Willi [facility] sity of 12:58:00 [facility] POCT GLUCOSE (AUTOMATED) 2022-03-02 Willi [facility] sity of 12:58:00 [facility] POCT TEST 2022-03-02 [facility] of 12:48:00 [facility] POCT TEST 2022-03-02 [facility] of 12:48:00 [facility] DAY SURGERY - ADC 2022-03-02 [facility] of 05:01:00 Unassigned, No [facility] Name Branch DME/SUPPLY JUSTIFICATION 2022-01-04 Doctor [facility] ity of 05:01:00 Unassigned, No [facility] DME/SUPPLY JUSTIFICATION 2022-01-04 Doctor [facility] ity of 05:01:00 Unassigned, No [facility] Name Branch DISCLOSURE AND CONSENT, MEDICAL 2021-12-28 [facility] of AND SURGICAL PROCEDURES 05:01:00 Unassigned, No [facility] dical Name Branch DISCLOSURE AND CONSENT, MEDICAL 2021-12-28 [facility] of AND SURGICAL PROCEDURES 05:01:00 Unassigned, No [facility] dical Name Branch Encounters Start End Encounter Admission Attending Care Care Encounter Source Date/Time Date/Time Type Type Clinicians Facility Department ID 2022-10-18 2022-10-18 Outpatient R MICHAELSAMIRDami, [facility] [id number] Univers 10:00:00 10:00:00 MIROSLAVA [id number] [facility] 2022-08-24 2022-08-24 Outpatient R RIK, [facility] [id number] Univers 09:00:00 09:00:00 TRAY [facility] 2022-08-06 2022-08-06 Outpatient R MARY JANE, [facility] [id number] Univers 16:30:00 16:30:00 AN [id number] [facility] 2022-05-18 2022-05-18 Outpatient R SANJAY SÁNCHEZ [facility] [id number] Univers 09:00:00 09:00:00 [id number] [facility] 2022-05-10 2022-05-10 Outpatient STELLA DAVILA [facility] [id number] Univers 10:00:00 10:00:00 STELLA WORLEY [id number] it [facility] 2022-04-29 2022-04-29 Outpatient Brock AGUILAR [facility] [id number] Univers 14:00:00 14:00:00 CLAU [id number] [facility] 2022-04-14 2022-04-14 Outpatient R VIK OLIVEIRA [facility] [id number] Univers 09:00:00 09:00:00 [facility] 2022-04-12 2022-04-12 [facility] [id number] Univers 00:00:00 00:00:[address] [facility] 4.2.7.2.686 Laura BROWN [id number] Pr dical NAL 059 Branch [facility] 2022-04-09 2022-04-09 Outpatient [facility] [id number] Univers 11:00:00 11:00:00 ISAC [id number] [facility] 2022-04-09 2022-04-09 Outpatient Brock [facility] [id number] Univers 11:00:00 11:00:00 ISAC itjay [facility] 2022-04-08 2022-04-08 [facility] [id number] Univers 08:30:00 23:59:00 Encounter [facility] HEALTH 350.1.13.10 [place] [id number] [address] OFFICE BUILDING 2022-04-08 2022-04-08 Outpatient [facility] [id number] Univers 08:30:00 23:59:00 [facility] ity o f [facility] 2022-04-08 2022-04-08 Telephone Stella Worley [facility] [id number] Univers 00:00:00 00:00:00 HEALTH 350.1.13.10 it [place] [id number] [address] OFFICE [facility] 2022-04-02 2022-04-02 Outpatient R [facility] [id number] Univers 09:30:00 09:30:00 AN alanjay [facility] 2022-03-31 2022-03-31 Telephone Rik [facility] [id number] Univers 00:00:00 00:00:00 Tray HEALTH 350.1.13.10 it y of [place] 4.2.7.2.686 Emanuel as JOLLY?BLEA [id number] Pr gabi CHAIREZ [address] [facility] OFFICE [facility] 2022-03-27 2022-03-27 Emergency [facility] [id number] Univers 07:48:00 08:22:00 Destiny GREGORIO 350.1.13.10 i ty [place] [id number] [address] 2022-03-27 2022-03-27 Emergency X [facility] ERT [id number] Univers 07:48:00 08:22:00 DESTINY phillipsjay [facility] 2022-03-27 2022-03-27 Orders Doctor CLAU 1.2.840.114 [id number] Univers 00:00:00 00:00:00 Only Unassigned, GRAYSON 350.1.13.10 ity of [place] [facility] 4.2.7.2.686 Emanuel as [id number] [address] 2022-03-24 2022-03-24 Telephone [facility] 1.2.840.114 [id number] Univers 00:00:00 00:00:00 [facility] HEALTH 350.1.13.10 it y of [place] 4.2.7.2.686 Emanuel as JOLLY?BLEA [id number] [address] MEDICAL OFFICE BUILDING 2022-03-23 2022-03-23 Outpatient R STELLA WORLEY [facility] [id number] Univers 13:00:00 13:00:00 STELLA WORLEY [id number] it y of [facility] 2022-03-19 2022-03-19 Telephone [facility] 1.2.840.114 [id number] Univers 00:00:00 00:00:00 [facility] 350.1.13.10 it y of [place] 4.2.7.2.686 Emanuel as JOLLY?BLEA [id number] [address] MEDICAL OFFICE [facility] 2022-03-17 2022-03-17 Telephone [facility] 1.2.840.114 [id number] Univers 00:00:00 00:00:00 [facility] HEALTH 350.1.13.10 it y of [place] 4.2.7.2.686 Emanuel as JOLLY?BLEA [id number] [address] MEDICAL OFFICE BUILDING 2022-03-12 2022-03-12 Refill Stella Worley [facility] 1.2.840.114 [id number] Univers 00:00:00 00:00:00 HEALTH 350.1.13.10 it [place] [id number] [place] [id number] Branch OFFICE BUILDING 2022-03-08 2022-03-08 Telephone [facility] 1.2.840.114 [id number] Univers 00:00:00 00:00:00 [facility] 350.1.13.10 it y of [place] 4.2.7.2.686 Emanuel as JOLLY?BLEA [id number] Pr gabi CHAIREZ [address] [place] MEDICAL OFFICE [facility] 2022-03-02 2022-03-02 Outpatient R [facility] MARCUS [id number] Univers 07:39:00 11:22:00 CECILE ity of [facility] 2022-03-02 2022-03-02 [facility] 1.2.840.114 [id number] Univers 07:39:00 11:22:00 Encounter Cecile JG 350.1.13.10 ity of [place] SURGICAL [id number] [facility] [address] [place] 2022-03-02 2022-03-02 Surgery [facility] [id number] Univers 09:11:00 10:25:00 Cecile GREGORIO 350.1.13.10 i ty of [place] SURGICAL [id number] [facility] 020 [place] 2022-03-02 2022-03-02 Orders Doctor CLAU 1.2.840.114 [id number] Univers 00:00:00 00:00:00 Only Unassigned, GRAYSON 350.1.13.10 ity of [place] [facility] 4.2.7.2.686 Emanuel as [id number] [facility] [address] [place] 2022-03-01 2022-03-01 Telephone [facility] 1.2.840.114 [id number] Univers 00:00:00 00:00:00 Cecile JG 350.1.13.10 i ty of [place] [id number] Pr gabi BARNEY 188 [facility] 2022-03-01 2022-03-01 Refill [facility] 1.2.840.114 [id number] Univers 00:00:00 00:00:00 Ricardo GREGORIO 350.1.13.10 ity of [place] [id number] Pr dical NAL 059 [facility] 2022-02-10 2022-02-10 Outpatient R NAV ANTONIO [facility] [id number] Univers 00:00:00 00:00:00 [facility] 2022-01-11 2022-01-11 Outpatient Brock MOMO [facility] [id number] Univers 14:45:00 23:59:00 ISAC [facility] 2021-12-28 2021-12-28 Outpatient [facility] [id number] Univers 09:30:00 10:07:08 CECILE [facility] 2021-09-29 2021-09-29 Outpatient Brock HENRIQUEZ, [facility] [id number] Univers 16:14:01 23:59:00 [facility] 2021-07-10 2021-07-10 Outpatient Kautz_S [facility] [id number] [facility] 05:13:00 05:13:00 [facility] 2021-05-09 2021-05-09 Outpatient DMG DMG [id number] [facility] 11:00:00 11:00:00 0814 [facility] 2021-05-08 2021-05-08 Outpatient Brock [facility] [id number] Univers 07:37:21 23:59:00 [facility] 2021-05-07 2021-05-07 Outpatient DMG DMG [id number] [facility] 12:00:00 12:00:00 0812 [facility] 2021-02-25 2021-02-25 Telephone [facility] [id number] [id number] 00:00:00 00:00:00 Ricardo Gregorio 350.1.13.10 [place] 4.2.7.2.686 Profess[place] [id number] [address] Results Test Description Test Time Test Comments Results Result Comments Source POCT GLUCOSE (AUTOMATED) 2022-03-02 13:11:54 Test Item Value Reference Range Interpretation Comme nts POCT GLU (test code = 6837737699) 137 mg/dL 70-110 H Lab Interpretation (test code = 19816-7) Abnormal [facility] GLUCOSE (AUTOMATED)2022-03-02 13:11:54 Test Item Value Reference Range Interpretation Comments POCT GLU (test code = 0728831294) 137 mg/dL 70-110 H Lab Interpretation (test code = Abnormal 19198-3) [facility] [id number] 12:59:00 Test Item Value Reference Range Interpretation Comments POCT Glu (age>30days) (test code = 137 mg/dL 70-110 A 3342) Lab Interpretation (test code = Abnormal 26447-7) [facility] [id number] 12:59:00 Test Item Value Reference Range Interpretation Comments POCT Glu (age>30days) (test code = 137 mg/dL 70-110 A 3342) Lab Interpretation (test code = Abnormal 09909-9) [facility] [id number] 12:48:00 Test Item Value Reference Range Interpretation Comments POCT PREG (test code = 1605) Negative On board controls acceptable with Yes C Line (test code = 3574) POCT PREG LOT # (test code = 3575) [id number] POCT PREG TEST DATE (test 2023-06-25 code = 3576) [facility] [id number] 12:48:00 Test Item Value Reference Range Interpretation Comments POCT PREG (test code = 1605) Negative On board controls acceptable with Yes C Line (test code = 3574) POCT PREG LOT # (test code = 3575) [id number] POCT PREG TEST DATE (test 2023-06-25 code = 3576) [facility]
[2022-04-17] MEDS ORDERED: METOCLOPRAMIDE 10 MG/2mL INJ ONE (16:07)
[2022-04-17 16:12] LABS: Protime INR 1.06
--- NOTE | 2022-04-17 16:14 | RAD REPORT ---
EXAM DESCRIPTION: CT - Head Brain Wo Cont - 04/17/2022 4:04 pm CLINICAL HISTORY: Dizziness, non-specific COMPARISON: Head Brain Wo Cont dated 08/17/2021; Head Brain Wo Cont dated 03/04/2021 TECHNIQUE: All CT scans are performed using dose optimization technique as appropriate and may inclu de automated exposure control or mA/KV adjustment according to patient size. FINDINGS: No intracranial hemorrhage, hydrocephalus or extra-axial fluid collection.No areas of brai n edema or evidence of midline shift. The paranasal sinuses and mastoids are clear. The calvarium is intact. IMPRESSION: No acute intracranial abnormality.
[2022-04-17 16:20] LABS: Absolute Lymphocytes (CBC) 0.9 K/uL (0.7-4.9); Hematocrit 38.1 % (36.0-45.0); Lymphocytes % 11.7 % (15.3-44.8); MCV 90.5 fL (80-100); MPV 9.2 fL (7.6-11.3); RBC Red Blood Cell Count 4.21 M/uL (3.86-4.86)
--- NOTE | 2022-04-17 16:31 | RAD REPORT ---
EXAM DESCRIPTION: RAD - Chest Single View - 04/17/2022 4:21 pm CLINICAL HISTORY: dizziness COMPARISON: Chest Single View dated 02/22/2022; Chest Single View dated 10/18/2021; Chest Single View dated 08/16/2021; Chest Single View dated 03/04/2021 FINDINGS: Lines: None. Lungs: No evidence of edema or pneumonia. Pleural: No significant pleural effusions or pneumothorax. Cardiac: The heart size is within normal limits. Bones: No acute fractures. Other: IMPRESSION: No acute cardiopulmonary disease.
[2022-04-17 16:32] LABS: Albumin 4.4 g/dL (3.4-5.0); Bilirubin Direct 0.2 mg/dL (0-0.2); Bilirubin Total 0.8 mg/dL (0.2-1.0); Magnesium 2.3 mg/dL (1.8-2.4); Potassium 3.6 mmol/L (3.5-5.1); Protein, Total 7.8 g/dL (6.4-8.2)
[2022-04-17] MEDS ORDERED: NA CHLORIDE 0.9% 1,000 ML ONE (17:24)
--- NOTE | 2022-04-17 19:40 | ER ---
Nurse's Notes [facility] Name: Linda Rahman Age: 46 yrs Sex: Female : 1975 Arrival Date: 04/17/2022 Time: 15:36 Bed 4 Private MD: Diagnosis: Dizziness and giddiness;Headache Presentation: 04/17 15:38 Chief complaint: EMS states: "pt reports having sudden dizziness that started at about jd3 1000. she is having some high blood pressure. the pt thought it might be her blood sugar, but her BGL was normal. we started a 22 G to the left forearm and started fluids.". Coronavirus screen: At this time, the client does not indicate any symptoms associated with coronavirus-19. Ebola Screen: No symptoms or risks identified at this time. Initial Sepsis Screen: Does the patient meet any 2 criteria? No. Patient's initial sepsis screen is negative. Does the patient have a suspected source of infection? No. Patient's initial sepsis screen is negative. Risk Assessment: Do you want to hurt yourself or someone else? Patient reports no desire to harm self or others. Onset of symptoms was April 17, 2022. 15:38 Method Of Arrival: EMS: [facility] jd3 15:38 Acuity: HOLLEY 3 jd3 Historical: - Allergies: 15:42 Amoxicillin; jd3 15:42 Benadryl; jd3 15:42 Codeine; jd3 15:42 Demerol; jd3 15:42 Geodon; jd3 15:42 Meclizine; jd3 15:42 Tessalon Perles; jd3 - Home Meds: 15:42 pregabalin 150 mg Oral cap 1 cap 3 times per day [Active]; albuterol sulfate 90 jd3 mcg/actuation Inhl aebs 1 puff every 6 hours [Active]; amitriptyline 50 mg Oral tab 2 tabs nightly [Active]; biotin 1 mg Oral cap [Active]; citalopram 40 mg tab 1 tab once daily [Active]; buspirone 15 mg Oral tab 2 tabs 2 times per day [Active]; cyclobenzaprine 5 mg Oral tab 1 tab 3 times per day [Active]; diclofenac sodium 75 mg Oral chew 1 tab 2 times per day [Active]; diltiazem HCl 120 mg Oral cp12 1 cap 2 times per day [Active]; econazole nitrate 1 % cream twice a day [Active]; ferrous sulfate 325 mg (65 mg iron) Oral chew [Active]; Flovent 110 mcg/actuation Inhl aero 2 puffs 2 times per day [Active]; cyanocobalamin (vitamin B-12) 1000 mcg/ml injection Oral drop [Active]; losartan 50 mg Oral tab 1 tab 2 times per day [Active]; metformin 500 mg Oral cp24 1 tab 2 times per day [Active]; levothyroxine 50 mcg cap 1 cap once daily [Active]; Myrbetriq 50 mg Oral Tb24 1 tab once daily [Active]; ginkgo biloba 120 mg Oral tab [Active]; omeprazole 20 mg Oral cpDR 1 cap once daily [Active]; ozempic 0.25 mg [Active]; clotrimazole 1 % Topical crea 2 times per day [Active]; promethazine 25 mg Oral tab 1 tab once daily [Active]; rosuvastatin 10 mg Oral cpSP 1 cap nightly [Active]; triamcinolone acetonide 0.025 % Topical lotn 3 times per day [Active]; - PMHx: 15:42 diabetes mellitus; Hypothyroidism; Anxiety; Hypertensive disorder; Anemia; jd3 - PSHx: 15:42 Cholecystectomy; Ligation of fallopian tube; jd3 - Immunization history:: Adult Immunizations up to date, Client reports receiving the 2nd dose of the Covid vaccine. - Social history:: Smoking status: Patient denies any tobacco usage or history of. Screenin:46 Abuse screen: Denies threats or abuse. Nutritional screening: No deficits noted. jd3 Tuberculosis screening: No symptoms or risk factors identified. Fall Risk Ambulatory Aid- None/Bed Rest/Nurse Assist (0 pts). Gait- Normal/Bed Rest/Wheelchair (0 pts) Mental Status- Oriented to own ability (0 pts). Total Butt Fall Scale indicates No Risk (0-24 pts). Assessment: 15:44 General: Appears in no apparent distress. comfortable, Behavior is calm, cooperative, jd3 appropriate for age, Reports symptoms feel like previous migraines. Pain: Complains of pain in head Quality of pain is described as aching, pressure. Neuro: Pelletier Agitation-Sedation Scale (RASS): 0 - Alert and Calm Level of Consciousness is awake, alert, obeys commands, Oriented to person, place, time, situation, Moves all extremities. Full function Speech is normal, Facial symmetry appears normal, Pupils are PERRLA, Intact Reports dizziness. Cardiovascular: Denies chest pain, Capillary refill < 3 seconds Patient's skin is warm and dry. Rhythm is irregular. Respiratory: Airway is patent Respiratory effort is even, unlabored, Respiratory pattern is regular, symmetrical, Denies cough, shortness of breath. GI: No signs and/or symptoms were reported involving the gastrointestinal system. : No signs and/or symptoms were reported regarding the genitourinary system. EENT: No signs and/or symptoms were reported regarding the EENT system. Derm: No signs and/or symptoms reported regarding the dermatologic system. Musculoskeletal: Circulation, motion, and sensation intact. Range of motion: intact in all extremities. 16:28 Reassessment: No changes from previously documented assessment. Patient and/or family jd3 updated on plan of care and expected duration. Pain level reassessed. Patient is alert, oriented x 3, equal unlabored respirations, skin warm/dry/pink. 17:34 Reassessment: Patient appears in no apparent distress at this time. Patient and/or jd3 family updated on plan of care and expected duration. Pain level reassessed. Patient is alert, oriented x 3, equal unlabored respirations, skin warm/dry/pink. Patient states feeling better. Patient states symptoms have improved. Vital Signs: 15:44 BP 133 / 95; Pulse 110; Resp 19 S; Temp 98(TE); Pulse Ox 97% on R/A; Weight 101.15 kg jd3 (R); Height 5 ft. 2 in. (157.48 cm) (R); Pain 5/10; 16:28 BP 102 / 72; Pulse 112; Resp 20; Pulse Ox 98% on R/A; jd3 17:34 BP 137 / 87; Pulse 107; Resp 18; Pulse Ox 100% on R/A; Pain 2/10; jd3 19:47 BP 124 / 94; Pulse 97; Resp 18 S; Pulse Ox 95% on R/A; as6 15:44 Body Mass Index 40.79 (101.15 kg, 157.48 cm) [facility] ED Course: 15:36 Patient arrived in ED. eb 15:37 Patric Lange, RN is Primary Nurse. jd3 15:38 Young Burgos PA is PHCP. robby 15:38 Adriana Green is Attending Physician. cp 15:42 Triage completed. jd3 15:44 Arm band placed on. EKG completed in triage. Results shown to MD. jd3 15:46 Patient has correct armband on for positive identification. Placed in gown. Bed in low jd3 position. Call light in reach. Side rails up X2. Adult w/ patient. Client placed on continuous cardiac and pulse oximetry monitoring. NIBP monitoring applied. surveillance system monitor on. Pulse ox on. NIBP on. 16:06 CT Head Brain wo Cont In Process Unspecified. EDMS 16:23 XRAY Chest (1 view) In Process Unspecified. EDMS 19:47 No provider procedures requiring assistance completed. IV discontinued, intact, as6 bleeding controlled, No redness/swelling at site. Pressure dressing applied. Administered Medications: 16:00 Not Given (Patient Refused): Meclizine 25 mg PO once jd3 16:18 Drug: Reglan (metoCLOPramide) 10 mg Route: IVP; Site: left forearm; jd3 17:10 Follow up: Response: No adverse reaction jd3 17:19 Drug: NS 0.9% 1000 ml Route: IV; Rate: 1 bolus; Site: left forearm; jd3 19:46 Follow up: Response: No adverse reaction; IV Status: Infusion continued; IV Intake: as6 1000ml Medication: 15:46 VIS not applicable for this client. jd3 Intake: 19:46 IV: 1000ml; Total: 1000ml. as6 Outcome: 19:40 Discharge ordered by MD. cp 19:47 Discharged to home ambulatory. as6 19:47 Condition: stable 19:47 Discharge instructions given to patient, Instructed on discharge instructions, follow up and referral plans. medication usage, Demonstrated understanding of instructions, follow-up care, medications, Prescriptions given X 2. 19:47 Patient left the ED. as6 Signatures: Dispatcher [employer] EDAR Young Burgos PA PA cp Davies, Jonathon, RN ABDULLAHI jd3 Zoey Talavera Ashby, RN RN as6
--- NOTE | 2022-04-17 19:40 | EDPHYS ---
Physician Documentation [facility] Name: Linda Rahman Age: 46 yrs Sex: Female : 1975 Arrival Date: 04/17/2022 Time: 15:36 Bed 4 Private MD: ED Physician Adriana Green HPI: 04/17 15:45 This 46 yrs old Female presents to ER via EMS with complaints of Headache, cp Dizziness. 15:45 The patient complains of pain to the top of head and forehead. The patient describes cp the headache as aching. Onset: The symptoms/episode began/occurred today. Associated signs and symptoms: Pertinent positives: dizziness, Pertinent negatives: altered mental status, fever, neck stiffness, paresthesias, vomiting, weakness. Severity of symptoms: in the emergency department the pain is unchanged, despite EMS interventions. Headache History: The patient has had previous headaches and this one is similar to previous episodes. Historical: - Allergies: 15:42 Amoxicillin; jd3 15:42 Benadryl; jd3 15:42 Codeine; jd3 15:42 Demerol; jd3 15:42 Geodon; jd3 15:42 Meclizine; jd3 15:42 Tessalon Perles; jd3 - Home Meds: 15:42 pregabalin 150 mg Oral cap 1 cap 3 times per day [Active]; albuterol sulfate 90 jd3 mcg/actuation Inhl aebs 1 puff every 6 hours [Active]; amitriptyline 50 mg Oral tab 2 tabs nightly [Active]; biotin 1 mg Oral cap [Active]; citalopram 40 mg tab 1 tab once daily [Active]; buspirone 15 mg Oral tab 2 tabs 2 times per day [Active]; cyclobenzaprine 5 mg Oral tab 1 tab 3 times per day [Active]; diclofenac sodium 75 mg Oral chew 1 tab 2 times per day [Active]; diltiazem HCl 120 mg Oral cp12 1 cap 2 times per day [Active]; econazole nitrate 1 % cream twice a day [Active]; ferrous sulfate 325 mg (65 mg iron) Oral chew [Active]; Flovent 110 mcg/actuation Inhl aero 2 puffs 2 times per day [Active]; cyanocobalamin (vitamin B-12) 1000 mcg/ml injection Oral drop [Active]; losartan 50 mg Oral tab 1 tab 2 times per day [Active]; metformin 500 mg Oral cp24 1 tab 2 times per day [Active]; levothyroxine 50 mcg cap 1 cap once daily [Active]; Myrbetriq 50 mg Oral Tb24 1 tab once daily [Active]; ginkgo biloba 120 mg Oral tab [Active]; omeprazole 20 mg Oral cpDR 1 cap once daily [Active]; ozempic 0.25 mg [Active]; clotrimazole 1 % Topical crea 2 times per day [Active]; promethazine 25 mg Oral tab 1 tab once daily [Active]; rosuvastatin 10 mg Oral cpSP 1 cap nightly [Active]; triamcinolone acetonide 0.025 % Topical lotn 3 times per day [Active]; - PMHx: 15:42 diabetes mellitus; Hypothyroidism; Anxiety; Hypertensive disorder; Anemia; jd3 - PSHx: 15:42 Cholecystectomy; Ligation of fallopian tube; jd3 - Immunization history:: Adult Immunizations up to date, Client reports receiving the 2nd dose of the Covid vaccine. - Social history:: Smoking status: Patient denies any tobacco usage or history of. ROS: 15:50 Constitutional: Negative for body aches, chills, poor PO intake. cp 15:50 Eyes: Negative for injury, pain, redness, and discharge. cp 15:50 ENT: Negative for drainage from ear(s), ear pain, sore throat, difficulty swallowing, difficulty handling secretions. 15:50 Cardiovascular: Negative for chest pain, edema, palpitations. 15:50 Respiratory: Negative for cough, shortness of breath, wheezing. 15:50 Abdomen/GI: Negative for abdominal pain, vomiting, diarrhea, constipation. 15:50 Back: Negative for pain at rest, pain with movement. 15:50 : Negative for urinary symptoms. 15:50 Neuro: Positive for dizziness, headache, Negative for altered mental status, weakness. 15:50 All other systems are negative. Exam: 15:37 ECG was reviewed by the Attending Physician. cp 15:55 Constitutional: The patient appears in no acute distress, alert, awake, cp non-diaphoretic, non-toxic, well developed, well nourished, obese. 15:55 Head/Face: Normocephalic, atraumatic. cp 15:55 Eyes: Periorbital structures: appear normal, Pupils: equal, round, and reactive to light and accomodation, Extraocular movements: intact throughout, Conjunctiva: normal, no exudate, no injection, Sclera: no appreciated abnormality, Lids and lashes: appear normal, bilaterally. 15:55 ENT: External ear(s): are unremarkable, Ear canal(s): are normal, clear, TM's: dullness, bilaterally, Nose: is normal, Mouth: Lips: moist, Oral mucosa: pink and intact, moist, Posterior pharynx: Airway: no evidence of obstruction, patent, Tonsils: are normal in appearance, swelling, is not appreciated, erythema, is not appreciated, exudate, is not appreciated. 15:55 Neck: ROM/movement: is normal, is supple, without pain, no range of motions limitations, no nuchal rigidity. 15:55 Chest/axilla: Inspection: normal, Palpation: is normal, no crepitus, no tenderness. 15:55 Cardiovascular: Rate: tachycardic, Rhythm: regular, Edema: is not appreciated, JVD: is not appreciated. 15:55 Respiratory: the patient does not display signs of respiratory distress, Respirations: normal, no use of accessory muscles, no retractions, labored breathing, is not present, Breath sounds: are clear throughout, no decreased breath sounds, no stridor, no wheezing. 15:55 Abdomen/GI: Inspection: abdomen appears normal, Palpation: abdomen is soft and non-tender, in all quadrants. 15:55 Back: pain, is absent, ROM is normal. 15:55 Neuro: Orientation: to person, place \T\ time. Mentation: Cerebellar function: is grossly normal, Motor: moves all fours, strength is normal, Sensation: is normal. Vital Signs: 15:44 BP 133 / 95; Pulse 110; Resp 19 S; Temp 98(TE); Pulse Ox 97% on R/A; Weight 101.15 kg jd3 (R); Height 5 ft. 2 in. (157.48 cm) (R); Pain 5/10; 16:28 BP 102 / 72; Pulse 112; Resp 20; Pulse Ox 98% on R/A; jd3 17:34 BP 137 / 87; Pulse 107; Resp 18; Pulse Ox 100% on R/A; Pain 2/10; jd3 19:47 BP 124 / 94; Pulse 97; Resp 18 S; Pulse Ox 95% on R/A; as6 15:44 Body Mass Index 40.79 (101.15 kg, 157.48 cm) jd3 MDM: 15:42 Patient medically screened. cp 19:40 Data reviewed: vital signs, nurses notes, lab test result(s), EKG, radiologic studies, cp CT scan, plain films. 19:40 Differential diagnosis: meningitis, meningoencephalitis, migraine, tension headache. cp Test interpretation: by ED physician or midlevel provider: ECG, plain radiologic studies. Counseling: I had a detailed discussion with the patient and/or guardian regarding: the historical points, exam findings, and any diagnostic results supporting the discharge/admit diagnosis, lab results, radiology results, the need for outpatient follow up, a family practitioner, to return to the emergency department if symptoms worsen or persist or if there are any questions or concerns that arise at home. Response to treatment: the patient's symptoms have markedly improved after treatment, and as a result, I will discharge patient. 04/17 15:39 Order name: Basic Metabolic Panel; Complete Time: 16:54 04/17 19:00 Interpretation: Normal except: CL 112; CO2 20; GLUC 128; GFR 58. 04/17 15:39 Order name: CBC with Diff; Complete Time: 16:54 04/17 19:00 Interpretation: Normal except: ZOIE% 82.3; LYM% 11.7. 04/17 15:39 Order name: LFT's; Complete Time: 16:54 04/17 19:00 Interpretation: Normal except: ALK 153. 04/17 15:39 Order name: Magnesium; Complete Time: 16:54 04/17 19:00 Interpretation: Abnormal: MG 2.3. 04/17 15:39 Order name: NT PRO-BNP; Complete Time: 16:54 04/17 15:39 Order name: PT-INR; Complete Time: 16:54 04/17 15:39 Order name: Troponin HS; Complete Time: 16:54 04/17 15:39 Order name: XRAY Chest (1 view); Complete Time: 16:54 04/17 19:01 Interpretation: Report review. 04/17 15:39 Order name: EKG; Complete Time: 15:40 04/17 15:39 Order name: Cardiac monitoring; Complete Time: 15:48 04/17 15:39 Order name: CT Head Brain wo Cont; Complete Time: 16:54 04/17 15:39 Order name: EKG - Nurse/Tech; Complete Time: 15:48 04/17 15:39 Order name: IV Saline Lock; Complete Time: 16:03 04/17 15:39 Order name: Labs collected and sent; Complete Time: 16:03 04/17 15:39 Order name: O2 Per Protocol; Complete Time: 15:48 04/17 15:39 Order name: O2 Sat Monitoring; Complete Time: 15:48 EC:37 Rate is 110 beats/min. Rhythm is regular. MO interval is normal. QRS interval is cp prolonged at 110 msec. QT interval is normal. T waves are Inverted in leads aVL, aVR. Interpreted by me. Reviewed by me. Administered Medications: 16:00 Not Given (Patient Refused): Meclizine 25 mg PO once jd3 16:18 Drug: Reglan (metoCLOPramide) 10 mg Route: IVP; Site: left forearm; jd3 17:10 Follow up: Response: No adverse reaction jd3 17:19 Drug: NS 0.9% 1000 ml Route: IV; Rate: 1 bolus; Site: left forearm; jd3 19:46 Follow up: Response: No adverse reaction; IV Status: Infusion continued; IV Intake: as6 1000ml Disposition: 04/18 18:26 STAFF ATTESTATION STATEMENT I was immediately available on-site in the Emergency sd2 Department for consultation in the care of the patient. Adriana Green MD. Disposition Summary: 04/17/22 19:40 Discharge Ordered Location: Home cp Problem: new cp Symptoms: have improved cp Condition: Stable cp Diagnosis - Dizziness and giddiness cp - Headache cp Followup: cp - With: Private Physician - When: 2 - 3 days - Reason: Recheck today's complaints Discharge Instructions: - Discharge Summary Sheet cp - Dizziness cp - General Headache Without Cause cp Forms: - Medication Reconciliation Form cp - Thank You Letter cp - Antibiotic Education cp - Prescription Opioid Use cp Prescriptions: - Ibuprofen 800 mg Oral Tablet - take 1 tablet by ORAL route every 8 hours As needed take with food; 30 tablet; cp Refills: 0, Product Selection Permitted - Zofran 4 mg Oral Tablet - take 1 tablet by ORAL route every 12 hours As needed; 20 tablet; Refills: 0, cp Product Selection Permitted Signatures: Dispatcher [employer] Young Dalton PA PA cp Davies, Jonathon, RN RN jd3 Adriana Green sd2 Anselmo Crandall RN as6
[2022-04-17 19:55] VITALS: TEMP 98
[2022-04-17 19:59] VITALS: BP 124/94; O2SAT 95
--- NOTE | 2022-04-18 06:22 | EKG ---
Test Date: 2022-04-17 Test Time: 15:30:48 Acute Care Registered Nurse: MARKO MEASUREMENT RESULTS: Intervals: Rate: 110 CO: 172 QRSD: 110 QT: 346 QTc: 468 [place]: P: 60 CO: 172 QRS: -57 T: 85 INTERPRETIVE STATEMENTS: Sinus tachycardia Pulmonary disease pattern Left anterior fascicular block Nonspecific ST and T wave abnormality Abnormal ECG Compared to ECG 02/23/2022 00:53:26 Left anterior fascicular block now present ST (T wave) deviation now present Left-axis deviation no longer present Incomplete right bundle-branch block no longer present Electronically Signed On 04-18-22 06:21:50 CDT by Elijah Lock
== END 2022-04-17 19:47 | disposition home or self-care (01) ==
LOC: ER 15:32
DX: R51.9 Headache, unspecified (principal); R42 Dizziness and giddiness; E11.9 Type 2 diabetes mellitus without complications; I10 Essential (primary) hypertension; E03.9 Hypothyroidism, unspecified; F41.9 Anxiety disorder, unspecified; Z88.5 Allergy status to narcotic agent; Z88.8 Allergy status to other drugs, medicaments and biological substances
CPT/HCPCS: 96361; 93005; 85025; 80048; 36415; 83735; 85610; 80076; 84484; 83880; 70450; 71045; 96374; 99284; J2765; J7030

== ENCOUNTER 2022-06-02 16:35 | Emergency (ER) | payer OTHER ==
--- OUTSIDE RECORDS SUMMARY | 2022-06-02 16:48 | XMS REPORT | Continuity of Care Document ---
:1975 Author Organization [facility] t Address [address] [place] [address] Care Team Providers Name Role Phone Tray Jolly MD Primary Care Physician [phone] MIROSLAVA ELIZABETH Attending Clinician Unavailable TRAY JOLYL Attending Clinician Unavailable NA HINTON Attending Clinician Unavailable STELLA WORLEY Attending Clinician Unavailable STELLA WORLEY Attending Clinician Unavailable Doctor Unassigned, [place] Attending Clinician Unavailable SANJAY SÁNCHEZ Attending Clinician Unavailable Tray Jolly MD Attending Clinician CLAU AGUILAR Attending Clinician Unavailable VIK OLIVEIRA Attending Clinician Unavailable Gomez HOLLINS, Sendil K.H. Attending Clinician ISAC BARR Attending Clinician Unavailable Sheri Moreno MD Attending Clinician SHERI MORENO Attending Clinician Unavailable Destiny Oneill MD Attending Clinician DESTINY ONEILL Attending Clinician Unavailable CECILE MÁRQUEZ Attending Clinician Unavailable Cecile Márquez MD Attending Clinician NAV ANTONIO Attending Clinician Unavailable CAPRICE HENRIQUEZ Attending Clinician Unavailable Eladia Attending Clinician Unavailable BRUNILDA, CRYSTAL Admitting Clinician Unavailable CECILE MÁRQUEZ Admitting Clinician Unavailable Cecile Márquez MD Admitting Clinician Eladia Admitting Clinician Unavailable Payers Payer Name Policy Type Policy Number Effective Date Expiration Date [facility] DUAL [id number] 2022 COMP CHOICE PPO 00:00:00 DSNP [facility] STAR PLUS [id number] 2021 00:00:00 DEVOTED HEALTH DAY8 2021 (MEDICARE 00:00:00 REPLACEMENT HMO) MEDICAID [facility] [id number] 2016 2016 00:00:00 00:00:00 Problems Condition Condition Condition Status Onset Resolution Last Treating Co mments Source Name Details Category Date Date Treatment Clinician Date Weakening Weakening Disease Active Uni vers of pelvic of pelvic -08 ity of fundus fundus 00:00: [place] 00 Medical Branch Intestinal Intestinal Disease Active Overview : Univers metaplasia metaplasia 4-05 Formattin ity of of body of of body of 00:00: g of this [place] stomach stomach 00 note Medical without without might be Branch dysplasia dysplasia different from the original. Added automatic ally from request for surgery [id number] Chronic Chronic Disease Active Overview: Univ ers superficia superficia 4-05 Formattin ity of l l 00:00: g of this [place] gastritis gastritis 00 note Medi cipriano without without might be Branch bleeding bleeding different from the original. Added automatic ally from request for surgery [id number] Hyperplast Hyperplast Disease Active Overview : Univers ic polyps ic polyps 4-05 Formattin i ty of of stomach of stomach 00:00: g of this [place] 00 note Medical might be Branch different from the original. Added automatic ally from request for surgery [id number] Indigestio Indigestio Disease Active 2020-09 Overview : Univers n n 2-15 Formattin ity of 00:00: g of this [place] 00 note Medical might be Branch different from the original. Added automatic ally from request for surgery [id number] Bloating Bloating Disease Active 2020-09 Overview: Un jerrod 2-15 Formattin ity of 00:00: g of this [place] 00 note Medical might be Branch different from the original. Added automatic ally from request for surgery [id number] Dental Dental Disease Active Univers caries caries [...] ity of with body with body 00:00: [facility] s mass index mass index 00 Me [...] Medical Branch Hepatomega Hepatomega Disease Active U nivned ly ly 3-24 ity of 00:00: [place] [facility] Obesity Obesity Disease Active Univers (BMI (BMI 2-12 ity of 30-39.9) 30-39.9) 00:00: [place] [facility] Sinus Sinus Disease Active Univers tachycardi tachycardi 1-02 it y of a a 00:00: [place] [facility] Branch Dyslipidem Dyslipidem Disease Active 2015-09 U evelyn ia ia 1-22 ity of 00:00: [place] [facility] Branch Vitamin Vitamin Disease Active 2015-09 Univers B12 B12 1-10 [place] deficiency [place] [facility] [place] 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 6-09 ity of 00:00: [place] [facility] Branch Abnormal Abnormal Disease Active Unive rs uterine uterine 5-23 ity of bleeding bleeding 00:00: [place] [facility] Submucous Submucous Disease Active Uni vers leiomyoma leiomyoma 5-23 ity of of uterus of uterus 00:00: [place] [facility] Encounter Encounter Disease Active Uni vers for blood for blood 2-16 ity of transfusio transfusio [place] [facility] Branch History of History of Disease Active U evelyn tubal tubal 2-05 ity of ligation ligation 00:00: [address] Branch 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 [place] disorder, disorder, 00 Medi cipriano in in Branch remission remission Hypothyroi Hypothyroi Disease Active U nivers d d 2-05 ity of 00:00: [place] [facility] Branch Essential Essential Disease Active Uni vers hypertensi hypertensi 2-05 it y of on, benign on, benign [place] [facility] Well woman Well woman Disease Active U evelyn exam exam 2-05 ity of 00:00: [place] 00 Medical Branch Chest pain Chest pain Disease Active U nivers 9-13 ity of 00:00: [place] 00 Medical Branch Peripheral Peripheral Disease Active U nivers neuropathy neuropathy it y of [facility] Branch 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 ity of [facility] Branch PCOS PCOS Disease Active Univers (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) [facility] Branch Allergies, Adverse Reactions, Alerts Allergy Allergy Status Severity Reaction(s) Onset Inactive Treating Comm ents Source Name Type Date Date Clinician Milk Propensi Active Other - See sneeze Uni vers ty to comments 814 ity of adverse 00:00: [place] reaction 00 Medical s Branch MILK DRUG Active Other-Cmnt Univer s INGREDI 814 ity of 00:00: [place] 00 Medical Branch [...] s Branch CODEINE DRUG Active Low ITCHING Univers INGREDI [...] s Branch DIPHENHY DRUG Active High Swelling Univer s DRAMINE INGREDI 7-18 ity of HCL 00:00: [place] 00 Medical Branch Benzonat Propensi Active Swelling Tightness U [...] 2014-0 Univer s one Hcl ty to 05-30 [...] INGREDI 05-30 ity of 00:00: [place] 00 [facility] Social History Social Habit Start Date Stop Date Quantity Comments Source Exposure to 2022-03-29 2022-04-08 Not sure [facility] SARS-CoV-2 (event) 00:00:00 08:43:00 [facility] Alcohol intake 2022-03-03 2022-03-03 0 /d University of 00:00:00 00:00:00 [facility] Cigarettes smoked 2017-10-20 2017-10-20 Univers ity of current (pack per 00:00:00 00:00:00 [place] ) - Reported Branch Cigarette 2017-10-20 2017-10-20 University of pack-years 00:00:00 00:00:00 [facility] Tobacco use and 2017-10-20 2017-10-20 Smokeless Universit y of exposure 00:00:00 00:00:00 tobacco non-user [facility] History of tobacco 1982-10-20 2007-10-20 Cigarette Smoker University [facility] 00:00:00 00:00:00 [facility] Sex [birth year] At [birth year] Universit y of 00:00:00 00:00:00 [facility] Smoking Status Start Date Stop Date Source Ex-smoker 2017-10-20 00:00:00 2017-10-20 00:00:00 [facility] Medications Ordered Filled Start Stop Current Ordering Indication Dosage Frequency Signature Comments Components Source Medication Medication Date Date Medication? Clinician (SIG) Name Name SUMAtriptan 2021-0 Yes [id number] TAKE 1 Univers 50 mg 9-06 TABLET BY ity of tablet 00:00: MOUTH 00 NEEDED FOR Medical MIGRAINE Branch HEADACHE ( MAY REPEAT IN 2 HOURS ) SUMAtriptan 2021-0 Yes [id number] TAKE 1 Univers 50 mg 9-06 TABLET BY ity of tablet 00:00: MOUTH 00 NEEDED FOR Medical MIGRAINE Branch HEADACHE ( MAY REPEAT IN 2 HOURS ) topiramate 2021-0 Yes [id number] Take 2 Univers 25 mg 9-01 tablets by ity of tablet 00:00: mouth 00 twice Medical daily Branch topiramate 2022-0 Yes [id number] Take 2 Univers 25 mg 9-01 tablets by ity of tablet 00:00: mouth 00 twice Medical daily Branch topiramate 2022-0 Yes [id number] Take 2 Univers 25 mg 9-01 tablets by ity of tablet 00:00: mouth 00 twice Medical daily Branch topiramate 2022-0 Yes [id number] Take 2 Univers 25 mg 9-01 tablets by ity of tablet 00:00: mouth 00 twice Medical daily Branch methocarbam 2021-0 Yes [id number] 500mg Take 1 Univers oL 500 mg 8-11 tablet by ity o f tablet 00:00: mouth 4 (four) Medical times Branch daily as needed for Pain (scale 7-10). methocarbam 2021-0 Yes [id number] 500mg Take 1 Univers oL 500 mg 8-11 tablet by ity o f tablet 00:00: mouth 4 (four) Medical times Branch daily as needed for Pain (scale 7-10). methocarbam 2021-0 Yes [id number] 500mg Take 1 Univers oL 500 mg 8-11 tablet by ity o f tablet 00:00: mouth 4 (four) Medical times Branch daily as needed for Pain (scale 7-10). methocarbam 2021-0 Yes [id number] 500mg Take 1 Univers oL 500 mg 8-11 tablet by ity o f tablet 00:00: mouth (four) Medical times Branch daily as needed for Pain (scale 7-10). methocarbam 2021-0 Yes [id number] 500mg Take 1 Univers oL 500 mg 8-11 tablet by ity o f tablet 00:00: mouth (four) Medical times Branch daily as needed for Pain (scale 7-10). methocarbam 2021-0 Yes [id number] 500mg Take 1 Univers oL 500 mg 8-11 tablet by ity o f tablet 00:00: mouth (four) Medical times Branch daily as needed for Pain (scale 7-10). methocarbam 2021-0 Yes [id number] 500mg Take 1 Univers oL 500 mg 8-11 tablet by ity o f tablet 00:00: mouth (four) Medical times Branch daily as needed for Pain (scale 7-10). methocarbam 2021-0 Yes [id number] 500mg Take 1 Univers oL 500 mg 8-11 tablet by ity o f tablet 00:00: mouth (four) Medical times Branch daily as needed for Pain (scale 7-10). LOSARTAN 50 2021-0 Yes [id number] Take 1 Univers mg tablet 7-20 tablet by ity o f 00:00: mouth twice Medical daily Branch DILTIAZEM 2021-0 Yes [id number] Take 1 Un jerrod 120 mg 24 7-20 capsule by ity of hr capsule 00:00: mouth twice Medical daily Branch LOSARTAN 50 2021-0 Yes [id number] Take 1 Univers mg tablet 7-20 tablet by ity o f 00:00: mouth twice Medical daily Branch DILTIAZEM 2021-0 Yes [id number] Take 1 Un jerrod 120 mg 24 7-20 capsule by ity of hr capsule 00:00: mouth twice Medical daily Branch LOSARTAN 50 2021-0 Yes [id number] Take 1 Univers mg tablet 7-20 tablet by ity o f 00:00: mouth twice Medical daily Branch DILTIAZEM 2021-0 Yes [id number] Take 1 Un jerrod 120 mg 24 7-20 capsule by ity of hr capsule 00:00: mouth twice Medical daily Branch LOSARTAN 50 2021-0 Yes [id number] Take 1 Univers mg tablet 7-20 tablet by ity o f 00:00: mouth twice Medical daily Branch DILTIAZEM 2021-0 Yes [id number] Take 1 Un jerrod 120 mg 24 7-20 capsule by ity of hr capsule 00:00: mouth twice Medical daily Branch LOSARTAN 50 2021-0 Yes [id number] Take 1 Univers mg tablet 7-20 tablet by ity o f 00:00: mouth twice Medical daily Branch DILTIAZEM 2021-0 Yes [id number] Take 1 Un jerrod 120 mg 24 7-20 capsule by ity of hr capsule 00:00: mouth twice Medical daily Branch LOSARTAN 50 2021-0 Yes [id number] Take 1 Univers mg tablet 7-20 tablet by ity o f 00:00: mouth twice Medical daily Branch DILTIAZEM 2021-0 Yes [id number] Take 1 Un jerrod 120 mg 24 7-20 capsule by ity of hr capsule 00:00: mouth twice Medical daily Branch LOSARTAN 50 2021-0 Yes [id number] Take 1 Univers mg tablet 7-20 tablet by ity o f 00:00: mouth twice Medical daily Branch DILTIAZEM 2021-0 Yes [id number] Take 1 Un jerrod 120 mg 24 7-20 capsule by ity of hr capsule 00:00: mouth twice Medical daily Branch LOSARTAN 50 2021-0 Yes [id number] Take 1 Univers mg tablet 7-20 tablet by ity o f 00:00: mouth twice Medical daily Branch DILTIAZEM 2021-0 Yes [id number] Take 1 Un jerrod 120 mg 24 7-20 capsule by ity of hr capsule 00:00: mouth twice Medical daily Branch LOSARTAN 50 2021-0 Yes [id number] Take 1 Univers mg tablet 7-20 tablet by ity o f 00:00: mouth twice Medical daily Branch DILTIAZEM 2021-0 Yes [id number] Take 1 Un jerrod 120 mg 24 7-20 capsule by ity of hr capsule 00:00: mouth twice Medical daily Branch methocarbam 2021-0 Yes [id number] 500mg Take 1 Univers oL 500 mg 7-02 tablet by ity o f tablet 00:00: mouth 4 [place] 00 (four) Medical times Branch daily. methocarbam 2021-0 Yes [id number] 500mg Take 1 Univers oL 500 mg 7-02 tablet by ity o f tablet 00:00: mouth 4 [place] 00 (four) Medical times Branch daily. methocarbam 2021-0 Yes [id number] 500mg Take 1 Univers oL 500 mg 7-02 tablet by ity o f tablet 00:00: mouth 4 [place] 00 (four) Medical times Branch daily. methocarbam 2021-0 Yes [id number] 500mg Take 1 Univers oL 500 mg 7-02 tablet by ity o f tablet 00:00: mouth 4 [place] 00 (four) Medical times Branch daily. methocarbam 2021-0 Yes [id number] 500mg Take 1 Univers oL 500 mg 7-02 tablet by ity o f tablet 00:00: mouth 4 [place] 00 (four) Medical times Branch daily. methocarbam 2021-0 2- No [id number] 500mg Take 1 Univers oL 500 mg 7-02 08-11 tablet by ity of tablet 00:00: 00:00 mouth 4 [place] 00 :00 (four) Medical times Branch daily. SUMATRIPTAN 2-0 Yes [id number] TAKE 1 Univers 50 mg 6-17 TABLET BY ity of tablet 00:00: MOUTH [place] 00 NEEDED FOR Medical MIGRAINE Branch HEADACHE (MAY REPEAT IN TWO HOURS) SUMATRIPTAN 2-0 Yes [id number] TAKE 1 Univers 50 mg 6-17 TABLET BY ity of tablet 00:00: MOUTH [place] 00 NEEDED FOR Medical MIGRAINE Branch HEADACHE (MAY REPEAT IN TWO HOURS) SUMATRIPTAN 2-0 Yes [id number] TAKE 1 Univers 50 mg 6-17 TABLET BY ity of tablet 00:00: MOUTH [place] 00 NEEDED FOR Medical MIGRAINE Branch HEADACHE (MAY REPEAT IN TWO HOURS) SUMATRIPTAN 2022-0 Yes [id number] TAKE 1 Univers 50 mg 6-17 TABLET BY ity of tablet 00:00: MOUTH [place] 00 NEEDED FOR Medical MIGRAINE Branch HEADACHE (MAY REPEAT IN TWO HOURS) SUMATRIPTAN 2022-0 Yes [id number] TAKE 1 Univers 50 mg 6-17 TABLET BY ity of tablet 00:00: MOUTH [place] 00 NEEDED FOR Medical MIGRAINE Branch HEADACHE (MAY REPEAT IN TWO HOURS) SUMATRIPTAN 2022-0 Yes [id number] TAKE 1 Univers 50 mg 6-17 TABLET BY ity of tablet 00:00: MOUTH [place] 00 NEEDED FOR Medical MIGRAINE Branch HEADACHE (MAY REPEAT IN TWO HOURS) SUMATRIPTAN 2022-0 Yes [id number] TAKE 1 Univers 50 mg 6-17 TABLET BY ity of tablet 00:00: MOUTH [place] 00 NEEDED FOR Medical MIGRAINE Branch HEADACHE (MAY REPEAT IN TWO HOURS) SUMATRIPTAN 2022-0 Yes [id number] TAKE 1 Univers 50 mg 6-17 TABLET BY ity of tablet 00:00: MOUTH [place] 00 NEEDED FOR Medical MIGRAINE Branch HEADACHE (MAY REPEAT IN TWO HOURS) SUMATRIPTAN 2022-0 Yes [id number] TAKE 1 Univers 50 mg 6-17 TABLET BY ity of tablet 00:00: MOUTH [place] 00 NEEDED FOR Medical MIGRAINE Branch HEADACHE (MAY REPEAT IN TWO HOURS) SUMATRIPTAN 2022-0 Yes [id number] TAKE 1 Univers 50 mg 6-17 TABLET BY ity of tablet 00:00: MOUTH [place] 00 NEEDED FOR Medical MIGRAINE Branch HEADACHE (MAY REPEAT IN TWO HOURS) SUMATRIPTAN 2-0 Yes [id number] TAKE 1 Univers 50 mg 6-17 TABLET BY ity of tablet 00:00: MOUTH [place] 00 NEEDED FOR Medical MIGRAINE Branch HEADACHE (MAY REPEAT IN TWO HOURS) SUMATRIPTAN 2-0 Yes [id number] TAKE 1 Univers 50 mg 6-17 TABLET BY ity of tablet 00:00: MOUTH [place] 00 NEEDED FOR Medical MIGRAINE Branch HEADACHE (MAY REPEAT IN TWO HOURS) SUMATRIPTAN 2022-0 Yes [id number] TAKE 1 Univers 50 mg 6-17 TABLET BY ity of tablet 00:00: MOUTH [place] 00 NEEDED FOR Medical MIGRAINE Branch HEADACHE (MAY REPEAT IN TWO HOURS) SUMATRIPTAN 2022-0 Yes [id number] TAKE 1 Univers 50 mg 6-17 TABLET BY ity of tablet 00:00: MOUTH [place] 00 NEEDED FOR Medical MIGRAINE Branch HEADACHE (MAY REPEAT IN TWO HOURS) SUMATRIPTAN 2022-0 Yes [id number] TAKE 1 Univers 50 mg 6-17 TABLET BY ity of tablet 00:00: MOUTH [place] 00 NEEDED FOR Medical MIGRAINE Branch HEADACHE (MAY REPEAT IN TWO HOURS) SUMATRIPTAN 2022-0 Yes [id number] TAKE 1 Univers 50 mg 6-17 TABLET BY ity of tablet 00:00: MOUTH [place] 00 NEEDED FOR Medical MIGRAINE Branch HEADACHE (MAY REPEAT IN TWO HOURS) SUMATRIPTAN 2021-0 Yes [id number] TAKE 1 Univers 50 mg 6-17 TABLET BY ity of tablet 00:00: MOUTH [place] 00 NEEDED FOR Medical MIGRAINE Branch HEADACHE (MAY REPEAT IN TWO HOURS) SUMATRIPTAN 2021-0 2- No [id number] TAKE 1 Univers 50 mg 6-17 09-06 TABLET BY ity of tablet 00:00: 00:00 MOUTH [place] 00 :00 NEEDED FOR Medical MIGRAINE Branch HEADACHE (MAY REPEAT IN TWO HOURS) fexofenadin 2021-0 Yes [id number] 180mg Take 1 Univers e (LUIS 6-13 tablet by ity of ALLERGY) 00:00: mouth [place] 180 mg 00 daily. Medical tablet Branch fexofenadin 0 Yes [id number] 180mg Take 1 Univers e (LUIS 6-13 tablet by ity of ALLERGY) 00:00: mouth [place] 180 mg 00 daily. Medical tablet Branch fexofenadin 2021-0 Yes [id number] 180mg Take 1 Univers e (LUIS 6-13 tablet by ity of ALLERGY) 00:00: mouth [place] 180 mg 00 daily. Medical tablet Branch fexofenadin 2021-0 Yes [id number] 180mg Take 1 Univers e (LUIS 6-13 tablet by ity of ALLERGY) 00:00: mouth [place] 180 mg 00 daily. Medical tablet Branch fexofenadin 2021-0 Yes [id number] 180mg Take 1 Univers e (LUIS 6-13 tablet by ity of ALLERGY) 00:00: mouth [place] 180 mg 00 daily. Medical tablet Branch fexofenadin 2021-0 Yes [id number] 180mg Take 1 Univers e (LUIS 6-13 tablet by ity of ALLERGY) 00:00: mouth [place] 180 mg 00 daily. Medical tablet Branch fexofenadin 2021-0 Yes [id number] 180mg Take 1 Univers e (LUIS 6-13 tablet by ity of ALLERGY) 00:00: mouth [place] 180 mg 00 daily. Medical tablet Branch fexofenadin 2021-0 Yes [id number] 180mg Take 1 Univers e (LUIS 6-13 tablet by ity of ALLERGY) 00:00: mouth [place] 180 mg 00 daily. Medical tablet Branch fexofenadin 0 Yes [id number] 180mg Take 1 Univers e (LUIS 6-13 tablet by ity of ALLERGY) 00:00: mouth [place] 180 mg 00 daily. Medical tablet Branch fexofenadin 0 Yes [id number] 180mg Take 1 Univers e (LUIS 6-13 tablet by ity of ALLERGY) 00:00: mouth [place] 180 mg 00 daily. Medical tablet Branch fexofenadin 0 Yes [id number] 180mg Take 1 Univers e (LUIS 6-13 tablet by ity of ALLERGY) 00:00: mouth [place] 180 mg 00 daily. Medical tablet Branch fexofenadin Yes [id number] 180mg Take 1 Univers e (LUIS 6-13 tablet by ity of ALLERGY) 00:00: mouth [place] 180 mg 00 daily. Medical tablet Branch fexofenadin Yes [id number] 180mg Take 1 Univers e (LUIS 6-13 tablet by ity of ALLERGY) 00:00: mouth [place] 180 mg 00 daily. Medical tablet Branch fexofenadin Yes [id number] 180mg Take 1 Univers e (LUIS 6-13 tablet by ity of ALLERGY) 00:00: mouth [place] 180 mg 00 daily. Medical tablet Branch fexofenadin Yes [id number] 180mg Take 1 Univers e (LUIS 6-13 tablet by ity of ALLERGY) 00:00: mouth [place] 180 mg 00 daily. Medical tablet Branch fexofenadin Yes [id number] 180mg Take 1 Univers e (LUIS 6-13 tablet by ity of ALLERGY) 00:00: mouth [place] 180 mg 00 daily. Medical tablet Branch fexofenadin Yes [id number] 180mg Take 1 Univers e (LUIS 6-13 tablet by ity of ALLERGY) 00:00: mouth [place] 180 mg 00 daily. Medical tablet Branch fexofenadin Yes [id number] 180mg Take 1 Univers e (LUIS 6-13 tablet by ity of ALLERGY) 00:00: mouth [place] 180 mg 00 daily. Medical tablet Branch fexofenadin Yes [id number] 180mg Take 1 Univers e (LUIS 6-13 tablet by ity of ALLERGY) 00:00: mouth [place] 180 mg 00 daily. Medical tablet Branch fexofenadin Yes [id number] 180mg Take 1 Univers e (LUIS 6-13 tablet by ity of ALLERGY) 00:00: mouth [place] 180 mg 00 daily. Medical tablet Branch rosuvastati Yes [id number] 10mg Take 1 Univers n 10 mg 6-08 tablet by ity of tablet 00:00: mouth at [place] 00 bedtime. Medical Branch rosuvastati Yes [id number] 10mg Take 1 Univers n 10 mg 6-08 tablet by ity of tablet 00:00: mouth at [place] 00 bedtime. Medical Branch rosuvastati Yes [id number] 10mg Take 1 Univers n 10 mg 6-08 tablet by ity of tablet 00:00: mouth at [place] 00 bedtime. Medical Branch rosuvastati Yes [id number] 10mg Take 1 Univers n 10 mg 6-08 tablet by ity of tablet 00:00: mouth at [place] [address] bedtime. Medical Branch rosuvastati Yes [id number] 10mg Take 1 Univers n 10 mg 6-08 tablet by ity of tablet 00:00: mouth at [place] [address] bedtime. Medical Branch rosuvastati Yes [id number] 10mg Take 1 Univers n 10 mg 6-08 tablet by ity of tablet 00:00: mouth at [place] [address] bedtime. Medical Branch rosuvastati Yes [id number] 10mg Take 1 Univers n 10 mg 6-08 tablet by ity of tablet 00:00: mouth at [place] [address] bedtime. Medical Branch rosuvastati Yes [id number] 10mg Take 1 Univers n 10 mg 6-08 tablet by ity of tablet 00:00: mouth at [place] 00 bedtime. Medical Branch rosuvastati Yes [id number] 10mg Take 1 Univers n 10 mg 6-08 tablet by ity of tablet 00:00: mouth at [place] [address] bedtime. Medical Branch rosuvastati Yes [id number] 10mg Take 1 Univers n 10 mg 6-08 tablet by ity of tablet 00:00: mouth at [place] [address] bedtime. Medical Branch rosuvastati Yes [id number] 10mg Take 1 Univers n 10 mg 6-08 tablet by ity of tablet 00:00: mouth at [place] bedtime. Medical Branch rosuvastati Yes [id number] 10mg Take 1 Univers n 10 mg 6-08 tablet by ity of tablet 00:00: mouth at [place] bedtime. Medical Branch rosuvastati Yes [id number] 10mg Take 1 Univers n 10 mg 6-08 tablet by ity of tablet 00:00: mouth at [place] bedtime. Medical Branch rosuvastati Yes [id number] 10mg Take 1 Univers n 10 mg 6-08 tablet by ity of tablet 00:00: mouth at [place] bedtime. Medical Branch rosuvastati Yes [id number] 10mg Take 1 Univers n 10 mg 6-08 tablet by ity of tablet 00:00: mouth at [place] bedtime. Medical Branch rosuvastati Yes [id number] 10mg Take 1 Univers n 10 mg 6-08 tablet by ity of tablet 00:00: mouth at [place] bedtime. Medical Branch rosuvastati Yes [id number] 10mg Take 1 Univers n 10 mg 6-08 tablet by ity of tablet 00:00: mouth at [place] bedtime. Medical Branch rosuvastati Yes [id number] 10mg Take 1 Univers n 10 mg 6-08 tablet by ity of tablet 00:00: mouth at [place] bedtime. Medical Branch rosuvastati Yes [id number] 10mg Take 1 Univers n 10 mg 6-08 tablet by ity of tablet 00:00: mouth at [place] [address] bedtime. Medical Branch rosuvastati Yes [id number] 10mg Take 1 Univers n 10 mg 6-08 tablet by ity of tablet 00:00: mouth at [place] bedtime. Medical Branch rosuvastati Yes [id number] 10mg Take 1 Univers n 10 mg 6-08 tablet by ity of tablet 00:00: mouth at [place] bedtime. Medical Branch rosuvastati Yes [id number] 10mg Take 1 Univers n 10 mg 6-08 tablet by ity of tablet 00:00: mouth at [place] [address] bedtime. Medical Branch water for 2021- No PRN, Univers irrigation 03-02 Starting ity of irrigation 14:20: 15:50 [place] solution 00 :27 03/02/22 at Medica l 0920, Branch Until Tue03/02/22 at 1050, Routine, Intra-op simethicone 202- No PRN, [facility] rs (GAS RELIEF 03-02 Starting ity of (SIMETHICON 14:20: 15:50 on Tue Emanuel as E)) 40 00 :27 03/02/22 at Medical mg/0.6 mL 0920, Branch drops Until Tue03/02/22 at 1050, Routine, Intra-op lactated 2021- No 1000mL at 42 [facility] ringers IV 03-02 06-07 mL/hr, ity of infusion 12:45: 12:59 1,000 mL, Emanuel as 1,000 mL 00 :00 IV Medical Infusion, Branch ONCE, 1 dose, On Tue03/02/22 at 0745, Routine, DSU Pre-op lactated 2021- No 1000mL at 42 [facility] ringers IV 03-02 06-07 mL/hr, ity of infusion 12:45: 12:59 1,000 mL, [place] as 1,000 mL 00 :00 IV Medical Infusion, Branch ONCE, 1 dose, On Tue03/02/22 at 0745, Routine, DSU Pre-op FOLIC ACID Yes Take by [facility] ORAL 6-07 mouth ity of 11:23: daily. [address] MULTIVIT Yes Take by [facility] s &MINERALS/F 6- mouth. ity of ERROUS FUM 11:23: [place] ([facility] 09 Medical VITAMIN Branch ORAL) METHYLCELLU Yes [facility] s LOSE (FIBER 6-07 ity of THERAPY 11:23: [place] MISC) [facility] DOCUSATE Yes Take by [facility] s SODIUM 6- mouth. ity of (COLACE 11:23: [place] ORAL) 09 Medical Ball vitamin C Yes 1000mg Take 1,000 Univers with derrell 6-07 mg by ity of hips 11:23: mouth [place] (VITAMIN C) 09 daily. Medica l 1,000 mg Branch tablet cholecalcif Yes 1000U Take 1,000 Univers edmar, 6-07 Units by ity of vitamin D3, 11:23: mouth [place] (VITAMIN 09 daily. Medical D3) 1,000 Branch unit tablet CRANBERRY Yes Take by [facility] FRUIT 6-07 mouth ity of EXTRACT 11:23: daily. [place] (CRANBERRY Medical ORAL) Branch CALCIUM Yes Take by [facility] ORAL 6-07 mouth ity of 11:23: daily. [place] [facility] DOCOSAHEXAN Yes 1000mg Take 1,000 [facility] OIC 6-07 mg by ity of ACID/EPA 11:23: mouth [place] (FISH OIL 09 daily. Medical ORAL) Branch BIOTIN ORAL Yes Take by Uni vers 6-07 mouth. ity of 11:23: [place] [address] Medical Branch FOLIC ACID Yes Take by [facility] ers ORAL 6-07 mouth ity of 11:23: daily. [place] [address] Medical Branch MULTIVIT Yes Take by [facility] &MINERALS/F 6-07 mouth. ity of ERROUS FUM 11:23: [place] (MULTI 09 Medical VITAMIN Branch ORAL) METHYLCELLU Yes [facility] LOSE (FIBER 6-07 ity of THERAPY 11:23: [place] MISC) Medical Branch DOCUSATE Yes Take by [facility] SODIUM 6-07 mouth. ity of (COLACE 11:23: [place] ORAL) 09 Medical Branch vitamin C Yes 1000mg Take 1,000 [facility] with derrell 6-07 mg by ity of hips 11:23: mouth [place] (VITAMIN C) 09 daily. Medica l 1,000 mg Branch tablet cholecalcif Yes 1000U Take 1,000 [facility] edmar, 6-07 Units by ity of vitamin D3, 11:23: mouth [place] (VITAMIN 09 daily. Medical D3) 1,000 Branch unit tablet CRANBERRY Yes Take by [facility] FRUIT 6-07 mouth ity of EXTRACT 11:23: daily. [place] (CRANBERRY 09 Medical ORAL) Branch CALCIUM Yes Take by [facility] ORAL 6-07 mouth ity of 11:23: daily. [place] [address] Medical Branch DOCOSAHEXAN Yes 1000mg Take 1,000 [facility] OIC 6-07 mg by ity of ACID/EPA 11:23: mouth [place] (FISH OIL 09 daily. Medical ORAL) Branch BIOTIN ORAL Yes Take by [facility] vers 6-07 mouth. ity of 11:23: Medical Branch FOLIC ACID Yes Take by Univ ers ORAL 6-07 mouth ity of 11:23: daily. [place] [facility] MULTIVIT Yes Take by Univer s &MINERALS/F 6-07 mouth. ity of ERROUS FUM 11:23: [place] (MULTI 09 Medical VITAMIN Branch ORAL) METHYLCELLU 0 Yes Univer s LOSE (FIBER 6-07 ity of THERAPY 11:23: [place] MISC) 09 Medical Branch DOCUSATE Yes Take by Univer s SODIUM 6-07 mouth. ity of (COLACE 11:23: [place] ORAL) 09 Medical Branch vitamin C Yes 1000mg Take 1,000 [facility] with derrell 6-07 mg by ity of hips 11:23: mouth [place] (VITAMIN C) 09 daily. Medica l 1,000 mg Branch tablet cholecalcif Yes 1000U Take 1,000 [facility] edmar, 6-07 Units by ity of vitamin D3, 11:23: mouth [place] (VITAMIN 09 daily. Medical D3) 1,000 Branch unit tablet CRANBERRY Yes Take by [facility] rs FRUIT 6-07 mouth ity of EXTRACT 11:23: daily. [place] (CRANBERRY 09 Medical ORAL) Branch CALCIUM Yes Take by [facility] ORAL 6-07 mouth ity of 11:23: daily. Medical Branch DOCOSAHEXAN Yes 1000mg Take 1,000 [facility] OIC 6-07 mg by ity of ACID/EPA 11:23: mouth [place] (FISH OIL 09 daily. Medical ORAL) Branch BIOTIN ORAL Yes Take by [facility] vers 6-07 mouth. ity of 11:23: Medical Branch FOLIC ACID 0 Yes Take by Univ ers ORAL 6-07 mouth ity of 11:23: daily. [place] [facility] MULTIVIT Yes Take by Univer s &MINERALS/F 6-07 mouth. ity of ERROUS FUM 11:23: [place] (MULTI 09 Medical VITAMIN Branch ORAL) METHYLCELLU 0 Yes Univer s LOSE (FIBER 6-07 ity of THERAPY 11:23: [facility]) 09 Medical Branch DOCUSATE 0 Yes Take by [facility] SODIUM 6-07 mouth. ity of (COLACE 11:23: [place] ORAL) 09 Medical Branch vitamin C Yes 1000mg Take 1,000 [facility] with derrell 6-07 mg by ity of hips 11:23: mouth [place] (VITAMIN C) 09 daily. Medica l 1,000 mg Branch tablet cholecalcif 0 Yes 1000U Take 1,000 [facility] edmar, 6-07 Units by ity of vitamin D3, 11:23: mouth [place] (VITAMIN 09 daily. Medical D3) 1,000 Branch unit tablet CRANBERRY Yes Take by [facility] rs FRUIT 6-07 mouth ity of EXTRACT 11:23: daily. [place] (CRANBERRY 09 Medical ORAL) Branch CALCIUM Yes Take by [facility] ORAL 6-07 mouth ity of 11:23: daily. [place] [facility] DOCOSAHEXAN Yes 1000mg Take 1,000 [facility] OIC 6-07 mg by ity of ACID/EPA 11:23: mouth [place] (FISH OIL 09 daily. Medical ORAL) Branch BIOTIN ORAL Yes Take by Uni vers 6-07 mouth. ity of 11:23: [place] [address] Medical Branch FOLIC ACID Yes Take by Univ ers ORAL 6-07 mouth ity of 11:23: daily. [place] [address] Medical Branch MULTIVIT Yes Take by [facility] &MINERALS/F 6-07 mouth. ity of ERROUS FUM 11:23: [place] (MULTI 09 Medical VITAMIN Branch ORAL) METHYLCELLU 0 Yes [facility] LOSE (FIBER 6-07 ity of THERAPY 11:23: [facility]) 09 Medical Branch DOCUSATE 0 Yes Take by [facility] SODIUM 6-07 mouth. ity of (COLACE 11:23: [place] ORAL) 09 Medical Branch vitamin C Yes 1000mg Take 1,000 [facility] with derrell 6-07 mg by ity of hips 11:23: mouth [place] (VITAMIN C) 09 daily. Medica l 1,000 mg Branch tablet cholecalcif 2021-0 Yes 1000U Take 1,000 [facility] edmar, 6-07 Units by ity of vitamin D3, 11:23: mouth [place] (VITAMIN 09 daily. Medical D3) 1,000 Branch unit tablet CRANBERRY Yes Take by [facility] rs FRUIT 6-07 mouth ity of EXTRACT 11:23: daily. [place] (CRANBERRY Medical ORAL) Branch CALCIUM Yes Take by [facility] ORAL 6-07 mouth ity of 11:23: daily. [place] [facility] DOCOSAHEXAN Yes 1000mg Take 1,000 [facility] OIC 6-07 mg by ity of ACID/EPA 11:23: mouth [place] (FISH OIL 09 daily. Medical ORAL) Branch BIOTIN ORAL Yes Take by Uni vers 6-07 mouth. ity of 11:23: [place] [facility] FOLIC ACID Yes Take by Univ ers ORAL 6-07 mouth ity of 11:23: daily. [place] [facility] MULTIVIT Yes Take by Univer s &MINERALS/F 6-07 mouth. ity of ERROUS FUM 11:23: [place] (MULTI 09 Medical VITAMIN Branch ORAL) METHYLCELLU Yes Univer s LOSE (FIBER 6-07 ity of THERAPY 11:23: [place] MISC) Medical Branch DOCUSATE Yes Take by Univer s SODIUM 6-07 mouth. ity of (COLACE 11:23: [place] ORAL) Medical Branch vitamin C Yes 1000mg Take 1,000 [facility] with derrell 6-07 mg by ity of hips 11:23: mouth [place] (VITAMIN C) 09 daily. Medica l 1,000 mg Branch tablet cholecalcif Yes 1000U Take 1,000 [facility] edmar, 6-07 Units by ity of vitamin D3, 11:23: mouth [place] (VITAMIN 09 daily. Medical D3) 1,000 Branch unit tablet CRANBERRY Yes Take by [facility] rs FRUIT 6-07 mouth ity of EXTRACT 11:23: daily. [place] (CRANBERRY Medical ORAL) Branch CALCIUM Yes Take by [facility] ORAL 6-07 mouth ity of 11:23: daily. [place] [facility] DOCOSAHEXAN Yes 1000mg Take 1,000 [facility] OIC 6-07 mg by ity of ACID/EPA 11:23: mouth [place] (FISH OIL 09 daily. Medical ORAL) Branch BIOTIN ORAL Yes Take by [facility] vers 6-07 mouth. ity of 11:23: [place] [facility] FOLIC ACID Yes Take by Univ ers ORAL 6-07 mouth ity of 11:23: daily. [place] [facility] MULTIVIT Yes Take by Univer s &MINERALS/F 6-07 mouth. ity of ERROUS FUM 11:23: [place] (MULTI 09 Medical VITAMIN Branch ORAL) METHYLCELLU 0 Yes Univer s LOSE (FIBER 6-07 ity of THERAPY 11:23: [facility]) 09 Medical Branch DOCUSATE 0 Yes Take by Univer s SODIUM 6-07 mouth. ity of (COLACE 11:23: [place] ORAL) 09 Medical Branch vitamin C Yes 1000mg Take 1,000 [facility] with derrell 6-07 mg by ity of hips 11:23: mouth [place] (VITAMIN C) 09 daily. Medica l 1,000 mg Branch tablet cholecalcif Yes 1000U Take 1,000 [facility] edmar, 6-07 Units by ity of vitamin D3, 11:23: mouth [place] (VITAMIN 09 daily. Medical D3) 1,000 Branch unit tablet CRANBERRY Yes Take by [facility] rs FRUIT 6-07 mouth ity of EXTRACT 11:23: daily. [place] (CRANBERRY Medical ORAL) Branch CALCIUM Yes Take by [facility] ORAL 6-07 mouth ity of 11:23: daily. [place] [facility] DOCOSAHEXAN Yes 1000mg Take 1,000 [facility] OIC 6-07 mg by ity of ACID/EPA 11:23: mouth [place] (FISH OIL 09 daily. Medical ORAL) Branch BIOTIN ORAL Yes Take by Uni vers 6-07 mouth. ity of 11:23: [place] [facility] FOLIC ACID Yes Take by Univ ers ORAL 6-07 mouth ity of 11:23: daily. [place] [facility] MULTIVIT 0 Yes Take by Univer s &MINERALS/F 6-07 mouth. ity of ERROUS FUM 11:23: [place] (MULTI 09 Medical VITAMIN Branch ORAL) METHYLCELLU 0 Yes Univer s LOSE (FIBER 6-07 ity of THERAPY 11:23: [facility]) 09 Medical Branch DOCUSATE 0 Yes Take by Univer s SODIUM 6-07 mouth. ity of (COLACE 11:23: [...] Branch unit tablet CRANBERRY Yes Take by [facility] rs FRUIT 6-07 mouth ity of EXTRACT 11:23: daily. [place] (CRANBERRY Medical ORAL) Branch CALCIUM Yes Take by [facility] ORAL 6-07 mouth ity of 11:23: daily. [place] [facility] DOCOSAHEXAN Yes 1000mg Take 1,000 [facility] OIC 6-07 mg by ity of ACID/EPA 11:23: mouth [place] (FISH OIL 09 daily. Medical ORAL) Branch BIOTIN ORAL Yes Take by Uni vers 6-07 mouth. ity of 11:23: [place] [address] Medical Branch FOLIC ACID Yes Take by Univ ers ORAL 6-07 mouth ity of 11:23: daily. [place] [address] Medical Branch MULTIVIT Yes Take by [facility] &MINERALS/F 6-07 mouth. ity of ERROUS FUM 11:23: [place] (MULTI 09 Medical VITAMIN Branch ORAL) METHYLCELLU Yes Univer s LOSE (FIBER 6-07 ity of THERAPY 11:23: [place] MISC) 09 Medical Branch DOCUSATE Yes Take by Univer s SODIUM 6-07 mouth. ity of (COLACE 11:23: [...] Branch unit tablet CRANBERRY Yes Take by Unive rs FRUIT 6-07 mouth ity of EXTRACT 11:23: daily. [place] (CRANBERRY Medical ORAL) Branch CALCIUM Yes Take by [facility] ORAL 6-07 mouth ity of 11:23: daily. [place] [facility] DOCOSAHEXAN Yes 1000mg Take 1,000 [facility] OIC 6-07 mg by ity of ACID/EPA 11:23: mouth [place] (FISH OIL 09 daily. Medical ORAL) Branch BIOTIN ORAL Yes Take by [facility] vers 6-07 mouth. ity of 11:23: [place] [facility] FOLIC ACID Yes Take by Univ ers ORAL 6-07 mouth ity of 11:23: daily. [place] [facility] MULTIVIT Yes Take by Univer s &MINERALS/F 6-07 mouth. ity of ERROUS FUM 11:23: [place] (MULTI 09 Medical VITAMIN Branch ORAL) METHYLCELLU Yes Univer s LOSE (FIBER 6-07 ity of THERAPY 11:23: [place] MIS) Medical Branch DOCUSATE Yes Take by Univer s SODIUM 6-07 mouth. ity of (COLACE 11:23: [place] ORAL) 09 Medical Branch vitamin C Yes 1000mg Take 1,000 [facility] with derrell 6-07 mg by ity of hips 11:23: mouth [place] (VITAMIN C) 09 daily. Medica l 1,000 mg Branch tablet cholecalcif Yes 1000U Take 1,000 [facility] edmar, 6-07 Units by ity of vitamin D3, 11:23: mouth [place] (VITAMIN 09 daily. Medical D3) 1,000 Branch unit tablet CRANBERRY Yes Take by Unive rs FRUIT 6-07 mouth ity of EXTRACT 11:23: daily. [place] (CRANBERRY Medical ORAL) Branch CALCIUM Yes Take by [facility] ORAL 6-07 mouth ity of 11:23: daily. [place] [facility] DOCOSAHEXAN Yes 1000mg Take 1,000 [facility] OIC 6-07 mg by ity of ACID/EPA 11:23: mouth [place] (FISH OIL 09 daily. Medical ORAL) Branch BIOTIN ORAL Yes Take by [facility] vers 6-07 mouth. ity of 11:23: [place] [facility] FOLIC ACID Yes Take by Univ ers ORAL 6-07 mouth ity of 11:23: daily. [place] [address] Medical Branch MULTIVIT Yes Take by Univer s &MINERALS/F 6-07 mouth. ity of ERROUS FUM 11:23: [place] (MULTI 09 Medical VITAMIN Branch ORAL) METHYLCELLU 0 Yes Univer s LOSE (FIBER 6-07 ity of THERAPY 11:23: [facility]) Medical Branch DOCUSATE Yes Take by Univer s SODIUM 6-07 mouth. ity of (COLACE 11:23: [place] ORAL) Medical Branch vitamin C Yes 1000mg Take 1,000 [facility] with derrell 6-07 mg by ity of hips 11:23: mouth [place] (VITAMIN C) 09 daily. Medica l 1,000 mg Branch tablet cholecalcif Yes 1000U Take 1,000 [facility] edmar, 6-07 Units by ity of vitamin D3, 11:23: mouth [place] (VITAMIN 09 daily. Medical D3) 1,000 Branch unit tablet CRANBERRY Yes Take by Unive rs FRUIT 6-07 mouth ity of EXTRACT 11:23: daily. [place] (CRANBERRY 09 Medical ORAL) Branch CALCIUM Yes Take by [facility] ORAL 6-07 mouth ity of 11:23: daily. [place] [address] Medical Branch DOCOSAHEXAN Yes 1000mg Take 1,000 [facility] OIC 6-07 mg by ity of ACID/EPA 11:23: mouth [place] (FISH OIL 09 daily. Medical ORAL) Branch BIOTIN ORAL Yes Take by Uni vers 6-07 mouth. ity of 11:23: [place] [address] Medical Branch FOLIC ACID Yes Take by Univ ers ORAL 6-07 mouth ity of 11:23: daily. [place] [address] Medical Branch MULTIVIT Yes Take by Univer s &MINERALS/F 6-07 mouth. ity of ERROUS FUM 11:23: [place] (MULTI 09 Medical VITAMIN Branch ORAL) METHYLCELLU 0 Yes Univer s LOSE (FIBER 6-07 ity of THERAPY 11:23: [facility]) Medical Branch DOCUSATE 0 Yes Take by Univer s SODIUM 6-07 mouth. ity of (COLACE 11:23: [place] ORAL) 09 Medical Branch vitamin C Yes 1000mg Take 1,000 [facility] with derrell 6-07 mg by ity of hips 11:23: mouth [place] (VITAMIN C) 09 daily. Medica l 1,000 mg Branch tablet cholecalcif 2021-0 Yes 1000U Take 1,000 [facility] edmar, 6-07 Units by ity of vitamin D3, 11:23: mouth [place] (VITAMIN 09 daily. Medical D3) 1,000 Branch unit tablet CRANBERRY 0 Yes Take by [facility] FRUIT 6-07 mouth ity of EXTRACT 11:23: daily. [place] (CRANBERRY Medical ORAL) Branch CALCIUM 0 Yes Take by [facility] ORAL 6-07 mouth ity of 11:23: daily. [place] [facility] DOCOSAHEXAN Yes 1000mg Take 1,000 [facility] OIC 6-07 mg by ity of ACID/EPA 11:23: mouth [place] (FISH OIL 09 daily. Medical ORAL) Branch BIOTIN ORAL Yes Take by Uni vers 6-07 mouth. ity of 11:23: [place] [facility] FOLIC ACID Yes Take by Univ ers ORAL 6-07 mouth ity of 11:23: daily. [place] [facility] MULTIVIT Yes Take by [facility] &MINERALS/F 6-07 mouth. ity of ERROUS FUM 11:23: [place] (MULTI 09 Medical VITAMIN Branch ORAL) METHYLCELLU Yes [facility] s LOSE (FIBER 6-07 ity of THERAPY 11:23: [place] MISC) 09 Medical Branch DOCUSATE Yes Take by [facility] SODIUM 6-07 mouth. ity of (COLACE 11:23: [place] ORAL) 09 Medical Branch vitamin C Yes 1000mg Take 1,000 [facility] with derrell 6-07 mg by ity of hips 11:23: mouth [place] (VITAMIN C) 09 daily. Medica l 1,000 mg Branch tablet cholecalcif 2021-0 Yes 1000U Take 1,000 [facility] edmar, 6-07 Units by ity of vitamin D3, 11:23: mouth [place] (VITAMIN 09 daily. Medical D3) 1,000 Branch unit tablet CRANBERRY 2021-0 Yes Take by Unive rs FRUIT 6-07 mouth ity of EXTRACT 11:23: daily. [place] (CRANBERRY 09 Medical ORAL) Branch CALCIUM Yes Take by [facility] ORAL 6-07 mouth ity of 11:23: daily. [place] [facility] DOCOSAHEXAN Yes 1000mg Take 1,000 [facility] OIC 6-07 mg by ity of ACID/EPA 11:23: mouth [place] (FISH OIL 09 daily. Medical ORAL) Branch BIOTIN ORAL Yes Take by Uni vers 6-07 mouth. ity of 11:23: Medical Branch FOLIC ACID Yes Take by Univ ers ORAL 6-07 mouth ity of 11:23: daily. [place] [facility] MULTIVIT Yes Take by Univer s &MINERALS/F 6-07 mouth. ity of ERROUS FUM 11:23: [place] (MULTI 09 Medical VITAMIN Branch ORAL) METHYLCELLU Yes [facility] s LOSE (FIBER 6-07 ity of THERAPY 11:23: [place] MISC) Medical Branch DOCUSATE Yes Take by [facility] SODIUM 6-07 mouth. ity of (COLACE 11:23: [place] ORAL) Medical Branch vitamin C Yes 1000mg Take 1,000 [facility] with derrell 6-07 mg by ity of hips 11:23: mouth [place] (VITAMIN C) 09 daily. Medica l 1,000 mg Branch tablet cholecalcif Yes 1000U Take 1,000 [facility] edmar, 6-07 Units by ity of vitamin D3, 11:23: mouth [place] (VITAMIN 09 daily. Medical D3) 1,000 Branch unit tablet CRANBERRY Yes Take by Unive rs FRUIT 6-07 mouth ity of EXTRACT 11:23: daily. [place] (CRANBERRY Medical ORAL) Branch CALCIUM Yes Take by [facility] ORAL 6-07 mouth ity of 11:23: daily. [place] [facility] DOCOSAHEXAN Yes 1000mg Take 1,000 [facility] OIC 6-07 mg by ity of ACID/EPA 11:23: mouth [place] (FISH OIL 09 daily. Medical ORAL) Branch BIOTIN ORAL Yes Take by Un jerrod 6-07 mouth. ity of 11:23: [place] [facility] FOLIC ACID Yes Take by Univ ers ORAL 6-07 mouth ity of 11:23: daily. [place] [facility] MULTIVIT Yes Take by Univer s &MINERALS/F 6-07 mouth. ity of ERROUS FUM 11:23: [place] (MULTI 09 Medical VITAMIN Branch ORAL) METHYLCELLU 0 Yes [facility] LOSE (FIBER 6-07 ity of THERAPY 11:23: [facility]) 09 Medical Branch DOCUSATE 0 Yes Take by [facility] SODIUM 6-07 mouth. ity of (COLACE 11:23: [place] ORAL) 09 Medical Branch vitamin C Yes 1000mg Take 1,000 [facility] with derrell 6-07 mg by ity of hips 11:23: mouth [place] (VITAMIN C) 09 daily. Medica l 1,000 mg Branch tablet cholecalcif Yes 1000U Take 1,000 [facility] edmar, 6-07 Units by ity of vitamin D3, 11:23: mouth [place] (VITAMIN 09 daily. Medical D3) 1,000 Branch unit tablet CRANBERRY Yes Take by [facility] rs FRUIT 6-07 mouth ity of EXTRACT 11:23: daily. [place] (CRANBERRY 09 Medical ORAL) Branch CALCIUM Yes Take by [facility] ORAL 6-07 mouth ity of 11:23: daily. [place] [facility] DOCOSAHEXAN Yes 1000mg Take 1,000 [facility] OIC 6-07 mg by ity of ACID/EPA 11:23: mouth [place] (FISH OIL 09 daily. Medical ORAL) Branch BIOTIN ORAL 0 Yes Take by Uni vers 6-07 mouth. ity of 11:23: [place] [address] Medical Branch FOLIC ACID 0 Yes Take by Univ ers ORAL 6-07 mouth ity of 11:23: daily. [place] [address] Medical Branch MULTIVIT Yes Take by [facility] &MINERALS/F 6-07 mouth. ity of ERROUS FUM 11:23: [place] (MULTI 09 Medical VITAMIN Branch ORAL) METHYLCELLU 0 Yes [facility] LOSE (FIBER 6-07 ity of THERAPY 11:23: [facility]) 09 Medical Branch DOCUSATE 0 Yes Take by [facility] SODIUM 6-07 mouth. ity of (COLACE 11:23: [place] ORAL) 09 Medical Branch vitamin C 0 Yes 1000mg Take 1,000 [facility] with derrell 6-07 mg by ity of hips 11:23: mouth [place] (VITAMIN C) 09 daily. Medica l 1,000 mg Branch tablet cholecalcif Yes 1000U Take 1,000 [facility] edmar, 6-07 Units by ity of vitamin D3, 11:23: mouth [place] (VITAMIN 09 daily. Medical D3) 1,000 Branch unit tablet CRANBERRY Yes Take by Unive rs FRUIT 6-07 mouth ity of EXTRACT 11:23: daily. [place] (CRANBERRY Medical ORAL) Branch CALCIUM Yes Take by [facility] ORAL 6-07 mouth ity of 11:23: daily. [place] [facility] DOCOSAHEXAN Yes 1000mg Take 1,000 [facility] OIC 6-07 mg by ity of ACID/EPA 11:23: mouth [place] (FISH OIL 09 daily. Medical ORAL) Branch BIOTIN ORAL Yes Take by Uni vers 6-07 mouth. ity of 11:23: [place] [facility] FOLIC ACID Yes Take by Univ ers ORAL 6-07 mouth ity of 11:23: daily. [place] [facility] MULTIVIT Yes Take by Univer s &MINERALS/F 6-07 mouth. ity of ERROUS FUM 11:23: [place] (MULTI 09 Medical VITAMIN Branch ORAL) METHYLCELLU Yes Univer s LOSE (FIBER 6-07 ity of THERAPY 11:23: [place] MISC) 09 Medical Branch DOCUSATE Yes Take by Univer s SODIUM 6-07 mouth. ity of (COLACE 11:23: [place] ORAL) 09 Medical Branch vitamin C Yes 1000mg Take 1,000 [facility] with derrell 6-07 mg by ity of hips 11:23: mouth [place] (VITAMIN C) 09 daily. Medica l 1,000 mg Branch tablet cholecalcif Yes 1000U Take 1,000 [facility] edmar, 6-07 Units by ity of vitamin D3, 11:23: mouth [place] (VITAMIN 09 daily. Medical D3) 1,000 Branch unit tablet CRANBERRY Yes Take by Unive rs FRUIT 6-07 mouth ity of EXTRACT 11:23: daily. [place] (CRANBERRY 09 Medical ORAL) Branch CALCIUM Yes Take by [facility] ORAL 6-07 mouth ity of 11:23: daily. [place] [facility] DOCOSAHEXAN Yes 1000mg Take 1,000 [facility] OIC 6-07 mg by ity of ACID/EPA 11:23: mouth [place] (FISH OIL 09 daily. Medical ORAL) Branch BIOTIN ORAL Yes Take by Uni vers 6-07 mouth. ity of 11:23: Medical Branch FOLIC ACID Yes Take by Univ ers ORAL 6-07 mouth ity of 11:23: daily. [place] [facility] MULTIVIT Yes Take by Univer s &MINERALS/F 6-07 mouth. ity of ERROUS FUM 11:23: [place] (MULTI 09 Medical VITAMIN Branch ORAL) METHYLCELLU 0 Yes Univer s LOSE (FIBER 6-07 ity of THERAPY 11:23: [place] MISC) 09 Medical Branch DOCUSATE Yes Take by Univer s SODIUM 6-07 mouth. ity of (COLACE 11:23: [place] ORAL) 09 Medical Branch vitamin C Yes 1000mg Take 1,000 [facility] with derrell 6-07 mg by ity of hips 11:23: mouth [place] (VITAMIN C) 09 daily. Medica l 1,000 mg Branch tablet cholecalcif Yes 1000U Take 1,000 [facility] edmar, 6-07 Units by ity of vitamin D3, 11:23: mouth [place] (VITAMIN 09 daily. Medical D3) 1,000 Branch unit tablet CRANBERRY Yes Take by Unive rs FRUIT 6-07 mouth ity of EXTRACT 11:23: daily. [place] (CRANBERRY 09 Medical ORAL) Branch CALCIUM Yes Take by [facility] ORAL 6-07 mouth ity of 11:23: daily. [place] [facility] DOCOSAHEXAN Yes 1000mg Take 1,000 [facility] OIC 6-07 mg by ity of ACID/EPA 11:23: mouth [place] (FISH OIL 09 daily. Medical ORAL) Branch BIOTIN ORAL Yes Take by Uni vers 6-07 mouth. ity of 11:23: Medical Branch FOLIC ACID 0 Yes Take by Univ ers ORAL 6-07 mouth ity of 11:23: daily. [place] [facility] MULTIVIT Yes Take by Univer s &MINERALS/F 6-07 mouth. ity of ERROUS FUM 11:23: [place] (MULTI 09 Medical VITAMIN Branch ORAL) METHYLCELLU 0 Yes Univer s LOSE (FIBER 6-07 ity of THERAPY 11:23: [facility]) 09 Medical Branch DOCUSATE Yes Take by [facility] SODIUM 6-07 mouth. ity of (COLACE 11:23: [place] ORAL) 09 Medical Branch vitamin C Yes 1000mg Take 1,000 [facility] with derrell 6-07 mg by ity of hips 11:23: mouth [place] (VITAMIN C) 09 daily. Medica l 1,000 mg Branch tablet cholecalcif 0 Yes 1000U Take 1,000 [facility] edmar, 6-07 Units by ity of vitamin D3, 11:23: mouth [place] (VITAMIN 09 daily. Medical D3) 1,000 Branch unit tablet CRANBERRY Yes Take by [facility] rs FRUIT 6-07 mouth ity of EXTRACT 11:23: daily. [place] (CRANBERRY 09 Medical ORAL) Branch CALCIUM Yes Take by [facility] ORAL 6-07 mouth ity of 11:23: daily. [place] [facility] DOCOSAHEXAN Yes 1000mg Take 1,000 [facility] OIC 6-07 mg by ity of ACID/EPA 11:23: mouth [place] (FISH OIL 09 daily. Medical ORAL) Branch BIOTIN ORAL Yes Take by Uni vers 6-07 mouth. ity of 11:23: [place] [address] Medical Branch FOLIC ACID 0 Yes Take by Univ ers ORAL 6-07 mouth ity of 11:23: daily. [place] [address] Medical Branch MULTIVIT Yes Take by [facility] &MINERALS/F 6-07 mouth. ity of ERROUS FUM 11:23: [place] (MULTI 09 Medical VITAMIN Branch ORAL) METHYLCELLU 0 Yes [facility] LOSE (FIBER 6-07 ity of THERAPY 11:23: [facility]) 09 Medical Branch DOCUSATE 0 Yes Take by [facility] SODIUM 6-07 mouth. ity of (COLACE 11:23: [place] ORAL) 09 Medical Branch vitamin C Yes 1000mg Take 1,000 [facility] with derrell 6-07 mg by ity of hips 11:23: mouth [place] (VITAMIN C) 09 daily. Medica l 1,000 mg Branch tablet cholecalcif 2021-0 Yes 1000U Take 1,000 [facility] edmar, 6-07 Units by ity of vitamin D3, 11:23: mouth [place] (VITAMIN 09 daily. Medical D3) 1,000 Branch unit tablet CRANBERRY Yes Take by Un[facility] rs FRUIT 6-07 mouth ity of EXTRACT 11:23: daily. [place] (CRANBERRY Medical ORAL) Branch CALCIUM Yes Take by [facility] ORAL 6-07 mouth ity of 11:23: daily. [place] [facility] DOCOSAHEXAN Yes 1000mg Take 1,000 [facility] OIC 6-07 mg by ity of ACID/EPA 11:23: mouth [place] (FISH OIL 09 daily. Medical ORAL) Branch BIOTIN ORAL Yes Take by Uni vers 6-07 mouth. ity of 11:23: [place] [address] Medical Branch FOLIC ACID Yes Take by Univ ers ORAL 6-07 mouth ity of 11:23: daily. [place] [facility] MULTIVIT Yes Take by Univer s &MINERALS/F 6-07 mouth. ity of ERROUS FUM 11:23: [place] (MULTI 09 Medical VITAMIN Branch ORAL) METHYLCELLU Yes Univer s LOSE (FIBER 6-07 ity of THERAPY 11:23: [place] MISC) Medical Branch DOCUSATE Yes Take by Univer s SODIUM 6-07 mouth. ity of (COLACE 11:23: [place] ORAL) Medical Branch vitamin C Yes 1000mg Take 1,000 [facility] with derrell 6-07 mg by ity of hips 11:23: mouth [place] (VITAMIN C) 09 daily. Medica l 1,000 mg Branch tablet cholecalcif Yes 1000U Take 1,000 [facility] edmar, 6-07 Units by ity of vitamin D3, 11:23: mouth [place] (VITAMIN 09 daily. Medical D3) 1,000 Branch unit tablet CRANBERRY Yes Take by Unive rs FRUIT 6-07 mouth ity of EXTRACT 11:23: daily. [place] (CRAN[place]ERRY Medical ORAL) Branch CALCIUM Yes Take by [facility] ORAL 6-07 mouth ity of 11:23: daily. [place] [address] Medical Branch DOCOSAHEXAN Yes 1000mg Take 1,000 [facility] OIC 6-07 mg by ity of ACID/EPA 11:23: mouth [place] (FISH OIL 09 daily. Medical ORAL) Branch BIOTIN ORAL 2022-0 Yes Take by Uni vers 6-07 mouth. ity of 11:23: [place] [facility] FOLIC ACID Yes Take by Univ ers ORAL 6-07 mouth ity of 11:23: daily. [place] [facility] MULTIVIT Yes Take by Univer s &MINERALS/F 6-07 mouth. ity of ERROUS FUM 11:23: [place] ([place] [address] Medical VITAMIN Branch ORAL) METHYLCELLU 0 Yes Univer s LOSE (FIBER 6-07 ity of THERAPY 11:23: [facility]) 09 Medical Branch DOCUSATE 0 Yes Take by Univer s SODIUM 6-07 mouth. ity of (COLACE 11:23: [place] ORAL) 09 Medical Branch vitamin C Yes 1000mg Take 1,000 [facility] with derrell 6-07 mg by ity of hips 11:23: mouth [place] (VITAMIN C) 09 daily. Medica l 1,000 mg Branch tablet cholecalcif Yes 1000U Take 1,000 [facility] edmar, 6-07 Units by ity of vitamin D3, 11:23: mouth [place] (VITAMIN 09 daily. Medical D3) 1,000 Branch unit tablet CRANBERRY Yes Take by Unive rs FRUIT 6-07 mouth ity of EXTRACT 11:23: daily. [place] ([place] Medical ORAL) Branch CALCIUM Yes Take by [facility] ORAL 6-07 mouth ity of 11:23: daily. [place] [facility] DOCOSAHEXAN Yes 1000mg Take 1,000 [facility] OIC 6-07 mg by ity of ACID/EPA 11:23: mouth [place] (FISH OIL 09 daily. Medical ORAL) Branch BIOTIN ORAL Yes Take by Uni vers 6-07 mouth. ity of 11:23: [place] [facility] FOLIC ACID Yes Take by Univ ers ORAL 6-07 mouth ity of 11:23: daily. [place] [facility] MULTIVIT Yes Take by Univer s &MINERALS/F 6-07 mouth. ity of ERROUS FUM 11:23: [place] ([place] [address] Medical VITAMIN Branch ORAL) METHYLCELLU 0 Yes Univer s LOSE (FIBER 6-07 ity of THERAPY 11:23: [place] MIS) 09 Medical Branch DOCUSATE 0 Yes Take by Univer s SODIUM 6-07 mouth. ity of (COLACE 11:23: [...] unit tablet CRANBERRY 0 Yes Take by [facility] rs FRUIT 6-07 mouth ity of EXTRACT 11:23: daily. [place] ([place] Medical ORAL) Branch CALCIUM Yes Take by [facility] ORAL 6-07 mouth ity of 11:23: daily. [place] [facility] DOCOSAHEXAN Yes 1000mg Take 1,000 [facility] OIC 6-07 mg by ity of ACID/EPA 11:23: mouth [place] (FISH OIL 09 daily. Medical ORAL) Branch BIOTIN ORAL Yes Take by Uni vers 6-07 mouth. ity of 11:23: [place] [address] Medical Branch FOLIC ACID Yes Take by [employer] ers ORAL 6-07 mouth ity of 11:23: daily. [place] [facility] MULTIVIT Yes Take by [employer] s &MINERALS/F 6-07 mouth. ity of ERROUS FUM 11:23: [place] (MULTI 09 Medical VITAMIN Branch ORAL) METHYLCELLU 0 Yes [facility]FIB[facility] 6-07 ity of THERAPY 11:23: [place] MISC) 09 Medical Branch DOCUSATE 0 Yes Take by [facility] s SODIUM 6-07 mouth. ity of (COLACE 11:23: [place] ORAL) 09 Medical Branch vitamin C Yes 1000mg Take 1,000 [facility] with derrell 6-07 mg by ity of hips 11:23: mouth [place] (VITAMIN C) 09 daily. Medica l 1,000 mg Branch tablet cholecalcif 0 Yes 1000U Take 1,000 [facility] edmar, 6-07 Units by ity of vitamin D3, 11:23: mouth [place] (VITAMIN 09 daily. Medical D3) 1,000 Branch unit tablet CRANBERRY 0 Yes Take by Unive rs FRUIT 6-07 mouth ity of EXTRACT 11:23: daily. [place] (CRANBERRY 09 Medical ORAL) Branch CALCIUM Yes Take by [facility] ORAL 6 mouth ity of 11:23: daily. [place] [facility] DOCOSAHEXAN Yes 1000mg Take 1,000 [facility] OIC 6-07 mg by ity of ACID/EPA 11:23: mouth [place] (FISH OIL 09 daily. Medical ORAL) Branch BIOTIN ORAL Yes Take by Uni vers 607 mouth. ity of 11:23: [place] [facility] FOLIC ACID Yes Take by Univ ers ORAL 6 mouth ity of 11:58: daily. [place] [address] Medical Branch MULTIVIT Yes Take by Univer s &MINERALS/F 6- mouth. ity of ERROUS FUM 11:58: [place] (MULTI 16 Medical VITAMIN Branch ORAL) METHYLCELLU Yes Univer s LOSE (FIBER 6- ity of THERAPY 11:58: [place] MIS) Medical Branch DOCUSATE Yes Take by Univer s SODIUM 6- mouth. ity of (COLACE 11:58: [place] ORAL) 16 Medical Branch vitamin C Yes 1000mg Take 1,000 [facility] with derrell 6-01 mg by ity of hips 11:58: mouth [place] (VITAMIN C) 16 daily. Medica l 1,000 mg Branch tablet cholecalcif Yes 1000U Take 1,000 [facility] edmar, 6-01 Units by ity of vitamin D3, 11:58: mouth [place] (VITAMIN 16 daily. Medical D3) 1,000 Branch unit tablet CRANBERRY Yes Take by Unive rs FRUIT 02-24 mouth ity of EXTRACT 11:58: daily. [place] (CRAN[place]ERRY 16 Medical ORAL) Branch CALCIUM Yes Take by Univers ORAL 6 mouth ity of 11:58: daily. [place] [address] Medical Branch DOCOSAHEXAN Yes 1000mg Take 1,000 [facility] OIC 6-01 mg by ity of ACID/EPA 11:58: mouth [place] (FISH OIL 16 daily. Medical ORAL) Branch BIOTIN ORAL Yes Take by Uni vers 6-01 mouth. ity of 11:58: [place] [address] Medical Branch metformin Yes [id number] 500mg Take 1 U nivers ER 500 mg 5-31 tablet by ity o f 24 hr 00:00: mouth [place] tablet 00 daily with Medical breakfast. Branch STOP REGULAR METFORMIN. metformin 2021-0 Yes [id number] 500mg Take 1 U nivers ER 500 mg 5-31 tablet by ity o f 24 hr 00:00: mouth [place] tablet 00 daily with Medical breakfast. Branch STOP REGULAR METFORMIN. metformin 2021-0 Yes [id number] 500mg Take 1 U nivers ER 500 mg 5-31 tablet by ity o f 24 hr 00:00: mouth [place] tablet 00 daily with Medical breakfast. Branch STOP REGULAR METFORMIN. metformin 2021-0 Yes [id number] 500mg Take 1 U nivers ER 500 mg 5-31 tablet by ity o f 24 hr 00:00: mouth [place] tablet 00 daily with Medical breakfast. Branch STOP REGULAR METFORMIN. metformin 2021-0 Yes [id number] 500mg Take 1 U nivers ER 500 mg 5-31 tablet by ity o f 24 hr 00:00: mouth [place] tablet 00 daily with Medical breakfast. Branch STOP REGULAR METFORMIN. metformin 2021-0 Yes [id number] 500mg Take 1 U nivers ER 500 mg 5-31 tablet by ity o f 24 hr 00:00: mouth [place] tablet 00 daily with Medical breakfast. Branch STOP REGULAR METFORMIN. metformin 2021-0 Yes [id number] 500mg Take 1 U nivers ER 500 mg 5-31 tablet by ity o f 24 hr 00:00: mouth [place] tablet 00 daily with Medical breakfast. Branch STOP REGULAR METFORMIN. metformin 2021-0 Yes [id number] 500mg Take 1 U nivers ER 500 mg 5-31 tablet by ity o f 24 hr 00:00: mouth [place] tablet 00 daily with Medical breakfast. Branch STOP REGULAR METFORMIN. metformin 2021-0 Yes [id number] 500mg Take 1 U nivers ER 500 mg 5-31 tablet by ity o f 24 hr 00:00: mouth [place] tablet 00 daily with Medical breakfast. Branch STOP REGULAR METFORMIN. metformin 2021-0 Yes [id number] 500mg Take 1 U nivers ER 500 mg 5-31 tablet by ity o f 24 hr 00:00: mouth [place] tablet 00 daily with Medical breakfast. Branch STOP REGULAR METFORMIN. metformin 2021-0 Yes [id number] 500mg Take 1 U nivers ER 500 mg 5-31 tablet by ity o f 24 hr 00:00: mouth [place] tablet 00 daily with Medical breakfast. Branch STOP REGULAR METFORMIN. metformin 2021-0 Yes [id number] 500mg Take 1 U nivers ER 500 mg 5-31 tablet by ity o f 24 hr 00:00: mouth [place] tablet 00 daily with Medical breakfast. Branch STOP REGULAR METFORMIN. metformin 2021-0 Yes [id number] 500mg Take 1 U nivers ER 500 mg 5-31 tablet by ity o f 24 hr 00:00: mouth [place] tablet 00 daily with Medical breakfast. Branch STOP REGULAR METFORMIN. metformin 2021-0 Yes [id number] 500mg Take 1 U nivers ER 500 mg 5-31 tablet by ity o f 24 hr 00:00: mouth [place] tablet 00 daily with Medical breakfast. Branch STOP REGULAR METFORMIN. metformin 2021-0 Yes [id number] 500mg Take 1 U nivers ER 500 mg 5-31 tablet by ity o f 24 hr 00:00: mouth [place] tablet 00 daily with Medical breakfast. Branch STOP REGULAR METFORMIN. metformin 2021-0 Yes [id number] 500mg Take 1 U nivers ER 500 mg 5-31 tablet by ity o f 24 hr 00:00: mouth [place] tablet 00 daily with Medical breakfast. Branch STOP REGULAR METFORMIN. metformin 2021-0 Yes [id number] 500mg Take 1 U nivers ER 500 mg 5-31 tablet by ity o f 24 hr 00:00: mouth [place] tablet 00 daily with Medical breakfast. Branch STOP REGULAR METFORMIN. metformin 2021-0 Yes [id number] 500mg Take 1 U nivers ER 500 mg 5-31 tablet by ity o f 24 hr 00:00: mouth [place] tablet 00 daily with Medical breakfast. Branch STOP REGULAR METFORMIN. metformin 2021-0 Yes [id number] 500mg Take 1 U nivers ER 500 mg 5-31 tablet by ity o f 24 hr 00:00: mouth [place] tablet 00 daily with Medical breakfast. Branch STOP REGULAR METFORMIN. metformin 2021-0 Yes [id number] 500mg Take 1 U nivers ER 500 mg 5-31 tablet by ity o f 24 hr 00:00: mouth [place] tablet 00 daily with Medical breakfast. Branch STOP REGULAR METFORMIN. metformin 2021-0 Yes [id number] 500mg Take 1 U nivers ER 500 mg 5-31 tablet by ity o f 24 hr 00:00: mouth [place] tablet 00 daily with Medical breakfast. Branch STOP REGULAR METFORMIN. metformin 2021-0 Yes [id number] 500mg Take 1 U nivers ER 500 mg 5-31 tablet by ity o f 24 hr 00:00: mouth [place] tablet 00 daily with Medical breakfast. Branch STOP REGULAR METFORMIN. metformin 2021-0 Yes [id number] 500mg Take 1 U nivers ER 500 mg 5-31 tablet by ity o f 24 hr 00:00: mouth [place] tablet 00 daily with Medical breakfast. Branch STOP REGULAR METFORMIN. metformin 2021-0 Yes [id number] 500mg Take 1 U nivers ER 500 mg 5-31 tablet by ity o f 24 hr 00:00: mouth [place] tablet 00 daily with Medical breakfast. Branch STOP REGULAR METFORMIN. metformin 2021-0 Yes [id number] 500mg Take 1 U nivers ER 500 mg 5-31 tablet by ity o f 24 hr 00:00: mouth [place] tablet 00 daily with Medical breakfast. Branch STOP REGULAR METFORMIN. ibuprofen 2021-0 Yes [id number] 600mg Take 1 [facility] 600 mg 5-19 [id number] tablet by ity of tablet 00:00: mouth [place] 00 every 6 Medical (six) Branch hours as needed for Pain (scale 4-6). ibuprofen 2021-0 Yes [id number] 600mg Take 1 [facility] 600 mg 5-19 [id number] tablet by ity of tablet 00:00: mouth [place] 00 every 6 Medical (six) Branch hours as needed for Pain (scale 4-6). ibuprofen 2021-0 Yes [id number] 600mg Take 1 [facility] 600 mg 5-19 [id number] tablet by ity of tablet 00:00: mouth [place] 00 every 6 Medical (six) Branch hours as needed for Pain (scale 4-6). ibuprofen 2021-0 Yes [id number] 600mg Take 1 [facility] 600 mg 5-19 [id number] tablet by ity of tablet 00:00: mouth [place] 00 every 6 Medical (six) Branch hours as needed for Pain (scale 4-6). ibuprofen 2021-0 Yes [id number] 600mg Take 1 [facility] 600 mg 5-19 [id number] tablet by ity of tablet 00:00: mouth [place] 00 every 6 Medical (six) Branch hours as needed for Pain (scale 4-6). ibuprofen 2021-0 Yes [id number] 600mg Take 1 [facility] 600 mg 5-19 [id number] tablet by ity of tablet 00:00: mouth [place] 00 every 6 Medical (six) Branch hours as needed for Pain (scale 4-6). ibuprofen 2022-0 Yes [id number] 600mg Take 1 [facility] 600 mg 5-19 [id number] tablet by ity of tablet 00:00: mouth [place] 00 every 6 Medical (six) Branch hours as needed for Pain (scale 4-6). ibuprofen 2022-0 Yes [id number] 600mg Take 1 [facility] 600 mg 5-19 [id number] tablet by ity of tablet 00:00: mouth [place] 00 every 6 Medical (six) Branch hours as needed for Pain (scale 4-6). ibuprofen 2022-0 Yes [id number] 600mg Take 1 [facility] 600 mg 5-19 [id number] tablet by ity of tablet 00:00: mouth [place] 00 every 6 Medical (six) Branch hours as needed for Pain (scale 4-6). ibuprofen 2022-0 Yes [id number] 600mg Take 1 [facility] 600 mg 5-19 [id number] tablet by ity of tablet 00:00: mouth [place] 00 every 6 Medical (six) Branch hours as needed for Pain (scale 4-6). ibuprofen 2022-0 Yes [id number] 600mg Take 1 [facility] 600 mg 5-19 [id number] tablet by ity of tablet 00:00: mouth [place] 00 every 6 Medical (six) Branch hours as needed for Pain (scale 4-6). ibuprofen 2022-0 Yes [id number] 600mg Take 1 [facility] 600 mg 5-19 [id number] tablet by ity of tablet 00:00: mouth [place] 00 every 6 Medical (six) Branch hours as needed for Pain (scale 4-6). ibuprofen 2022-0 Yes [id number] 600mg Take 1 [facility] 600 mg 5-19 [id number] tablet by ity of tablet 00:00: mouth [place] 00 every 6 Medical (six) Branch hours as needed for Pain (scale 4-6). ibuprofen 2022-0 Yes [id number] 600mg Take 1 [facility] 600 mg 5-19 [id number] tablet by ity of tablet 00:00: mouth [place] 00 every 6 Medical (six) Branch hours as needed for Pain (scale 4-6). ibuprofen 2022-0 Yes [id number] 600mg Take 1 [facility] 600 mg 5-19 [id number] tablet by ity of tablet 00:00: mouth [place] 00 every 6 Medical (six) Branch hours as needed for Pain (scale 4-6). ibuprofen 2022-0 Yes [id number] 600mg Take 1 [facility] 600 mg 5-19 [id number] tablet by ity of tablet 00:00: mouth [place] 00 every 6 Medical (six) Branch hours as needed for Pain (scale 4-6). ibuprofen 2022-0 Yes [id number] 600mg Take 1 [facility] 600 mg 5-19 [id number] tablet by ity of tablet 00:00: mouth [place] 00 every 6 Medical (six) Branch hours as needed for Pain (scale 4-6). ibuprofen 2022-0 Yes [id number] 600mg Take 1 [facility] 600 mg 5-19 [id number] tablet by ity of tablet 00:00: mouth [place] 00 every 6 Medical (six) Branch hours as needed for Pain (scale 4-6). ibuprofen 2022-0 Yes [id number] 600mg Take 1 [facility] 600 mg 5-19 [id number] tablet by ity of tablet 00:00: mouth [place] 00 every 6 Medical (six) Branch hours as needed for Pain (scale 4-6). ibuprofen 2022-0 Yes [id number] 600mg Take 1 [facility] 600 mg 5-19 [id number] tablet by ity of tablet 00:00: mouth [place] 00 every 6 Medical (six) Branch hours as needed for Pain (scale 4-6). ibuprofen 2022-0 Yes [id number] 600mg Take 1 [facility] 600 mg 5-19 [id number] tablet by ity of tablet 00:00: mouth [place] 00 every 6 Medical (six) Branch hours as needed for Pain (scale 4-6). ibuprofen 2022-0 Yes [id number] 600mg Take 1 [facility] 600 mg 5-19 [id number] tablet by ity of tablet 00:00: mouth [place] 00 every 6 Medical (six) Branch hours as needed for Pain (scale 4-6). ibuprofen 2022-0 Yes [id number] 600mg Take 1 [facility] 600 mg 5-19 [id number] tablet by ity of tablet 00:00: mouth [place] 00 every 6 Medical (six) Branch hours as needed for Pain (scale 4-6). ibuprofen 2022-0 Yes [id number] 600mg Take 1 [facility] 600 mg 5-19 [id number] tablet by ity of tablet 00:00: mouth [place] 00 every 6 Medical (six) Branch hours as needed for Pain (scale 4-6). ibuprofen 2021-0 Yes [id number] 600mg Take 1 [facility] 600 mg 5-19 [id number] tablet by ity of tablet 00:00: mouth 00 every 6 Medical (six) Branch hours as needed for Pain (scale 4-6). topiramate 2-0 Yes [id number] 50mg Take 2 [facility] 25 mg 5-16 tablets by ity of tablet 00:00: mouth (two) Medical times Branch daily. topiramate 2022-0 Yes [id number] 50mg Take 2 [facility] 25 mg 5-16 tablets by ity of tablet 00:00: mouth (two) Medical times Branch daily. topiramate 2-0 Yes [id number] 50mg Take 2 [facility] 25 mg 5-16 tablets by ity of tablet 00:00: mouth (two) Medical times Branch daily. topiramate 2021-0 Yes [id number] 50mg Take 2 [facility] 25 mg 5-16 tablets by ity of tablet 00:00: mouth (two) Medical times Branch daily. topiramate 2021-0 Yes [id number] 50mg Take 2 [facility] 25 mg 5-16 tablets by ity of tablet 00:00: mouth (two) Medical times Branch daily. topiramate 2-0 Yes [id number] 50mg Take 2 [facility] 25 mg 5-16 tablets by ity of tablet 00:00: mouth (two) Medical times Branch daily. topiramate 2-0 Yes [id number] 50mg Take 2 [facility] 25 mg 5-16 tablets by ity of tablet 00:00: mouth (two) Medical times Branch daily. topiramate 2-0 Yes [id number] 50mg Take 2 [facility] 25 mg 5-16 tablets by ity of tablet 00:00: mouth (two) Medical times Branch daily. topiramate 2022-0 Yes [id number] 50mg Take 2 [facility] 25 mg 5-16 tablets by ity of tablet 00:00: mouth (two) Medical times Branch daily. SUMAtriptan 2022-0 Yes [id number] 50mg Take 1 [facility] 50 mg 5-16 tablet by ity of tablet 00:00: mouth as 00 needed for Medical Migraine. Branch topiramate 2022-0 Yes [id number] 50mg Take 2 [facility] 25 mg 5-16 tablets by ity of tablet 00:00: mouth 2 [place] (two) Medical times Branch daily. SUMAtriptan 2021-0 Yes [id number] 50mg Take 1 [facility] 50 mg 5-16 tablet by ity of tablet 00:00: mouth as [place] 00 needed for Medical Migraine. Branch topiramate 2021-0 Yes [id number] 50mg Take 2 [facility] 25 mg 5-16 tablets by ity of tablet 00:00: mouth 2 [place] (two) Medical times Branch daily. SUMAtriptan 2021-0 Yes [id number] 50mg Take 1 [facility] 50 mg 5-16 tablet by ity of tablet 00:00: mouth as [place] 00 needed for Medical Migraine. Branch topiramate 2021-0 Yes [id number] 50mg Take 2 [facility] 25 mg 5-16 tablets by ity of tablet 00:00: mouth 2 (two) Medical times Branch daily. SUMAtriptan 2021-0 Yes [id number] 50mg Take 1 [facility] 50 mg 5-16 tablet by ity of tablet 00:00: mouth as [place] 00 needed for Medical Migraine. Branch topiramate 2021-0 Yes [id number] 50mg Take 2 [facility] 25 mg 5-16 tablets by ity of tablet 00:00: mouth 2 (two) Medical times Branch daily. SUMAtriptan 2-0 Yes [id number] 50mg Take 1 [facility] 50 mg 5-16 tablet by ity of tablet 00:00: mouth as [place] 00 needed for Medical Migraine. Branch topiramate 2021-0 Yes [id number] 50mg Take 2 [facility] 25 mg 5-16 tablets by ity of tablet 00:00: mouth 2 [place] (two) Medical times Branch daily. SUMAtriptan 2-0 Yes [id number] 50mg Take 1 [facility] 50 mg 5-16 tablet by ity of tablet 00:00: mouth as [place] 00 needed for Medical Migraine. Branch topiramate 2-0 Yes [id number] 50mg Take 2 [facility] 25 mg 5-16 tablets by ity of tablet 00:00: mouth 2 00 (two) Medical times Branch daily. topiramate 2-0 Yes [id number] 50mg Take 2 [facility] 25 mg 5-16 tablets by ity of tablet 00:00: mouth 2 [place] 00 (two) Medical times Branch daily. topiramate 2021-0 Yes [id number] 50mg Take 2 [facility] 25 mg 5-16 tablets by ity of tablet 00:00: mouth 2 [place] 00 (two) Medical times Branch daily. topiramate 2021-0 Yes [id number] 50mg Take 2 [facility] 25 mg 5-16 tablets by ity of tablet 00:00: mouth 2 [place] 00 (two) Medical times Branch daily. topiramate 2021-0 Yes [id number] 50mg Take 2 [facility] 25 mg 5-16 tablets by ity of tablet 00:00: mouth 2 [place] 00 (two) Medical times Branch daily. topiramate 2021-0 Yes [id number] 50mg Take 2 [facility] 25 mg 5-16 tablets by ity of tablet 00:00: mouth 2 [place] 00 (two) Medical times Branch daily. topiramate 2021-0 2022- No [id number] 50mg Take 2 [facility] 25 mg 5-16 09-01 tablets by ity of tablet 00:00: 00:00 mouth 2 [place] 00 :00 (two) Medical times Branch daily. SUMAtriptan 2021-0 2022- No [id number] 50mg Take 1 [facility] 50 mg 5-16 06-17 tablet by ity of tablet 00:00: 00:00 mouth as [place] 00 :00 needed for Medical Migraine. Branch ALCOHOL Yes 1{dose} Apply 1 Univ ers PADS PadM 5-08 Dose to ity of 00:00: [facility]) [place] 00 before Medical meals. Branch ALCOHOL [...] 00 before Medical meals. Branch pregabalin Yes [id number] 150mg Take 1 [facility] 150 mg 4-29 capsule by ity of capsule 00:00: mouth 3 (three) Medical times Branch daily. busPIRone Yes [id number] 20mg Take 2 Un [place] 10 mg 4-29 tablets by ity of tablet 00:00: mouth 2 (two) Medical times Branch daily. citalopram Yes [id number] 40mg Take 1 U nivers 40 mg 4-29 tablet by ity of tablet 00:00: mouth 00 daily. Medical Branch pregabalin Yes [id number] 150mg Take 1 [facility] 150 mg 4-29 capsule by ity of capsule 00:00: mouth 3 (three) Medical times Branch daily. busPIRone Yes [id number] 20mg Take 2 Un [place] 10 mg 4-29 tablets by ity of tablet 00:00: mouth (two) Medical times Branch daily. citalopram 2021-0 Yes [id number] 40mg Take 1 U nivers 40 mg 4-29 tablet by ity of tablet 00:00: mouth 00 daily. Medical Branch pregabalin 2021-0 Yes [id number] 150mg Take 1 [facility] 150 mg 4-29 capsule by ity of capsule 00:00: mouth (three) Medical times Branch daily. busPIRone 2021-0 Yes [id number] 20mg Take 2 Un [place] 10 mg 4-29 tablets by ity of tablet 00:00: mouth (two) Medical times Branch daily. citalopram 2021-0 Yes [id number] 40mg Take 1 U nivers 40 mg 4-29 tablet by ity of tablet 00:00: mouth daily. Medical Branch pregabalin 2021-0 Yes [id number] 150mg Take 1 [facility] 150 mg 4-29 capsule by ity of capsule 00:00: mouth (three) Medical times Branch daily. busPIRone 2021-0 Yes [id number] 20mg Take 2 Un [place] 10 mg 4-29 tablets by ity of tablet 00:00: mouth (two) Medical times Branch daily. citalopram 2021-0 Yes [id number] 40mg Take 1 U nivers 40 mg 4-29 tablet by ity of tablet 00:00: mouth daily. Medical Branch pregabalin 2021-0 Yes [id number] 150mg Take 1 [facility] 150 mg 4-29 capsule by ity of capsule 00:00: mouth (three) Medical times Branch daily. busPIRone 2021-0 Yes [id number] 20mg Take 2 Un [place] 10 mg 4-29 tablets by ity of tablet 00:00: mouth (two) Medical times Branch daily. citalopram 2021-0 Yes [id number] 40mg Take 1 U nivers 40 mg 4-29 tablet by ity of tablet 00:00: mouth 00 daily. Medical Branch pregabalin 2021-0 Yes [id number] 150mg Take 1 [facility] 150 mg 4-29 capsule by ity of capsule 00:00: mouth 3 (three) Medical times Branch daily. busPIRone 2021-0 Yes [id number] 20mg Take 2 Un [place] 10 mg 4-29 tablets by ity of tablet 00:00: mouth (two) Medical times Branch daily. citalopram 2021-0 Yes [id number] 40mg Take 1 U nivers 40 mg 4-29 tablet by ity of tablet 00:00: mouth daily. Medical Branch pregabalin 2021-0 Yes [id number] 150mg Take 1 [facility] 150 mg 4-29 capsule by ity of capsule 00:00: mouth 3 (three) Medical times Branch daily. busPIRone 2021-0 Yes [id number] 20mg Take 2 Un [place] 10 mg 4-29 tablets by ity of tablet 00:00: mouth (two) Medical times Branch daily. citalopram 2021-0 Yes [id number] 40mg Take 1 U nivers 40 mg 4-29 tablet by ity of tablet 00:00: mouth daily. Medical Branch pregabalin 2021-0 Yes [id number] 150mg Take 1 [facility] 150 mg 4-29 capsule by ity of capsule 00:00: mouth (three) Medical times Branch daily. busPIRone 2021-0 Yes [id number] 20mg Take 2 Un [place] 10 mg 4-29 tablets by ity of tablet 00:00: mouth (two) Medical times Branch daily. citalopram 2021-0 Yes [id number] 40mg Take 1 U nivers 40 mg 4-29 tablet by ity of tablet 00:00: mouth daily. Medical Branch pregabalin 2021-0 Yes [id number] 150mg Take 1 [facility] 150 mg 4-29 capsule by ity of capsule 00:00: mouth 3 (three) Medical times Branch daily. busPIRone 2-0 Yes [id number] 20mg Take 2 Un [place] 10 mg 4-29 tablets by ity of tablet 00:00: mouth (two) Medical times Branch daily. citalopram 2-0 Yes [id number] 40mg Take 1 U nivers 40 mg 4-29 tablet by ity of tablet 00:00: mouth 00 daily. Medical Branch pregabalin 2021-0 Yes [id number] 150mg Take 1 [facility] 150 mg 4-29 capsule by ity of capsule 00:00: mouth (three) Medical times Branch daily. busPIRone 2021-0 Yes [id number] 20mg Take 2 [facility] [place] 10 mg 4-29 tablets by ity of tablet 00:00: mouth (two) Medical times Branch daily. citalopram 2021-0 Yes [id number] 40mg Take 1 U nivers 40 mg 4-29 tablet by ity of tablet 00:00: mouth daily. Medical Branch pregabalin 2021-0 Yes [id number] 150mg Take 1 [facility] 150 mg 4-29 capsule by ity of capsule 00:00: mouth (three) Medical times Branch daily. busPIRone 2021-0 Yes [id number] 20mg Take 2 [facility] [place] 10 mg 4-29 tablets by ity of tablet 00:00: mouth (two) Medical times Branch daily. citalopram 2021-0 Yes [id number] 40mg Take 1 U nivers 40 mg 4-29 tablet by ity of tablet 00:00: mouth daily. Medical Branch pregabalin 2021-0 Yes [id number] 150mg Take 1 [facility] 150 mg 4-29 capsule by ity of capsule 00:00: mouth (three) Medical times Branch daily. busPIRone 2021-0 Yes [id number] 20mg Take 2 Un [place] 10 mg 4-29 tablets by ity of tablet 00:00: mouth (two) Medical times Branch daily. citalopram 2021-0 Yes [id number] 40mg Take 1 U nivers 40 mg 4-29 tablet by ity of tablet 00:00: mouth daily. Medical Branch pregabalin 2021-0 Yes [id number] 150mg Take 1 [facility] 150 mg 4-29 capsule by ity of capsule 00:00: mouth (three) Medical times Branch daily. busPIRone 2021-0 Yes [id number] 20mg Take 2 [facility] [place] 10 mg 4-29 tablets by ity of tablet 00:00: mouth (two) Medical times Branch daily. citalopram 2021-0 Yes [id number] 40mg Take 1 U nivers 40 mg 4-29 tablet by ity of tablet 00:00: mouth 00 daily. Medical Branch pregabalin 2021-0 Yes [id number] 150mg Take 1 [facility] 150 mg 4-29 capsule by ity of capsule 00:00: mouth 3 (three) Medical times Branch daily. busPIRone 2021-0 Yes [id number] 20mg Take 2 [facility] 10 mg 4-29 tablets by [facility] of tablet 00:00: mouth 2 (two) Medical times Branch daily. citalopram 2021-0 Yes [id number] 40mg Take 1 [facility] n[facility] 40 mg 4-29 tablet by [facility]y of tablet 00:00: mouth 00 daily. Medical Branch pregabalin 0 Yes [id number] 150mg Take 1 [facility] 150 mg 4-29 capsule by [facility] of capsule 00:00: mouth 3 (three) Medical times Branch daily. busPIRone 2021-0 Yes [id number] 20mg Take 2 [facility] [place] 10 mg 4-29 tablets by [facility] of tablet 00:00: mouth (two) Medical times Branch daily. citalopram 2021-0 Yes [id number] 40mg Take 1 [facility] 40 mg 4-29 tablet by [facility]y of tablet 00:00: mouth 00 daily. Medical Branch pregabalin 0 Yes [id number] 150mg Take 1 [facility] 150 mg 4-29 capsule by [facility]y of capsule 00:00: mouth 3 (three) Medical times Branch daily. busPIRone 2021-0 Yes [id number] 20mg Take 2 [facility] [place] 10 mg 4-29 tablets by [facility] of tablet 00:00: mouth (two) Medical times Branch daily. citalopram 2021-0 Yes [id number] 40mg Take 1 [facility] 40 mg 4-29 tablet by [facility]y of tablet 00:00: mouth 00 daily. Medical Branch pregabalin 2021-0 Yes [id number] 150mg Take 1 [facility] 150 mg 4-29 capsule by [facility]y of capsule 00:00: mouth 3 (three) Medical times Branch daily. busPIRone 2021-0 Yes [id number] 20mg Take 2 [facility] [place] 10 mg 4-29 tablets by [facility] of tablet 00:00: mouth (two) Medical times Branch daily. citalopram 2021-0 Yes [id number] 40mg Take 1 [facility] 40 mg 4-29 tablet by [facility]y of tablet 00:00: mouth daily. Medical Branch pregabalin 2021-0 Yes [id number] 150mg Take 1 [facility] 150 mg 4-29 capsule by [facility]y of capsule 00:00: mouth (three) Medical times Branch daily. busPIRone 2021-0 Yes [id number] 20mg Take 2 [facility] [place] 10 mg 4-29 tablets by [facility] of tablet 00:00: mouth (two) Medical times Branch daily. citalopram 2021-0 Yes [id number] 40mg Take 1 [facility] 40 mg 4-29 tablet by [facility]y of tablet 00:00: mouth 00 daily. Medical Branch pregabalin 2021-0 Yes [id number] 150mg Take 1 [facility] 150 mg 4-29 capsule by [facility]y of capsule 00:00: mouth (three) Medical times Branch daily. busPIRone 2021-0 Yes [id number] 20mg Take 2 [facility] [place] 10 mg 4-29 tablets by [facility] of tablet 00:00: mouth (two) Medical times Branch daily. citalopram 2021-0 Yes [id number] 40mg Take 1 [facility] 40 mg 4-29 tablet by [facility] of tablet 00:00: mouth 00 daily. Medical Branch pregabalin 2021-0 Yes [id number] 150mg Take 1 [facility] 150 mg 4-29 capsule by [facility]y of capsule 00:00: mouth (three) Medical times Branch daily. busPIRone 2021-0 Yes [id number] 20mg Take 2 [facility] [place] 10 mg 4-29 tablets by [facility] of tablet 00:00: mouth (two) Medical times Branch daily. citalopram 2021-0 Yes [id number] 40mg Take 1 [facility] 40 mg 4-29 tablet by [facility] of tablet 00:00: mouth 00 daily. Medical Branch pregabalin 2021-0 Yes [id number] 150mg Take 1 [facility] 150 mg 4-29 capsule by [facility]y of capsule 00:00: mouth 3 (three) Medical times Branch daily. busPIRone 2021-0 Yes [id number] 20mg Take 2 [facility] [place] 10 mg 4-29 tablets by [facility] of tablet 00:00: mouth (two) Medical times Branch daily. citalopram 2021-0 Yes [id number] 40mg Take 1 [facility] 40 mg 4-29 tablet by [facility] of tablet 00:00: mouth daily. Medical Branch pregabalin 2021-0 Yes [id number] 150mg Take 1 [facility] 150 mg 4-29 capsule by ity of capsule 00:00: mouth 3 (three) Medical times Branch daily. busPIRone 2021-0 Yes [id number] 20mg Take 2 [facility] [place] 10 mg 4-29 tablets by [facility] of tablet 00:00: mouth (two) Medical times Branch daily. citalopram 2021-0 Yes [id number] 40mg Take 1 [facility] 40 mg 4-29 tablet by [facility]y of tablet 00:00: mouth daily. Medical Branch pregabalin 2021-0 Yes [id number] 150mg Take 1 [facility] 150 mg 4-29 capsule by ity of capsule 00:00: mouth (three) Medical times Branch daily. busPIRone 2021-0 Yes [id number] 20mg Take 2 [facility] [place] 10 mg 4-29 tablets by [facility] of tablet 00:00: mouth (two) Medical times Branch daily. citalopram 2021-0 Yes [id number] 40mg Take 1 [facility] 40 mg 4-29 tablet by [facility] of tablet 00:00: mouth daily. Medical Branch pregabalin 2021-0 Yes [id number] 150mg Take 1 [facility] 150 mg 4-29 capsule by ity of capsule 00:00: mouth (three) Medical times Branch daily. busPIRone 2-0 Yes [id number] 20mg Take 2 [facility] [place] 10 mg 4-29 tablets by [facility] of tablet 00:00: mouth (two) Medical times Branch daily. citalopram 2-0 Yes [id number] 40mg Take 1 [facility] 40 mg 4-29 tablet by [facility]y of tablet 00:00: mouth [place] 00 daily. Medical Branch pregabalin Yes [id number] 150mg Take 1 [facility] 150 mg 4-29 capsule by ity of capsule 00:00: mouth 3 [place] 00 (three) Medical times Branch daily. busPIRone 0 Yes [id number] 20mg Take 2 [facility] 10 mg 4-29 tablets by ity of tablet 00:00: mouth 2 [place] 00 (two) Medical times Branch daily. citalopram 0 Yes [id number] 40mg Take 1 [facility] 40 mg 4-29 tablet by ity of tablet 00:00: mouth [place] 00 daily. Medical Branch pantoprazol Yes [id number] 40mg Take 1 [facility] e 40 mg EC 4-04 tablet by ity of tablet 00:00: mouth [place] 00 daily. Medical Branch pantoprazol Yes [id number] 40mg Take 1 [facility] e 40 mg EC 4-04 tablet by ity of tablet 00:00: mouth [place] 00 daily. Medical Branch pantoprazol Yes [id number] 40mg Take 1 [facility] e 40 mg EC 4-04 tablet by ity of tablet 00:00: mouth [place] 00 daily. Medical Branch pantoprazol Yes [id number] 40mg Take 1 [facility] e 40 mg EC 4-04 tablet by ity of tablet 00:00: mouth [place] 00 daily. Medical Branch pantoprazol Yes [id number] 40mg Take 1 [facility] e 40 mg EC 4-04 tablet by ity of tablet 00:00: mouth [place] 00 daily. Medical Branch pantoprazol Yes [id number] 40mg Take 1 [facility] e 40 mg EC 4-04 tablet by ity of tablet 00:00: mouth [place] 00 daily. Medical Branch pantoprazol Yes [id number] 40mg Take 1 [facility] e 40 mg EC 4-04 tablet by ity of tablet 00:00: mouth [place] 00 daily. Medical Branch pantoprazol 0 Yes [id number] 40mg Take 1 [facility] e 40 mg EC 4-04 tablet by ity of tablet 00:00: mouth [place] 00 daily. Medical Branch pantoprazol Yes [id number] 40mg Take 1 [facility] e 40 mg EC 4-04 tablet by ity of tablet 00:00: mouth [place] 00 daily. Medical Branch pantoprazol 0 Yes [id number] 40mg Take 1 [facility] e 40 mg EC 4-04 tablet by ity of tablet 00:00: mouth [place] 00 daily. Medical Branch pantoprazol Yes [id number] 40mg Take 1 [facility] e 40 mg EC 4-04 tablet by ity of tablet 00:00: mouth [place] 00 daily. Medical Branch pantoprazol 2021-0 Yes [id number] 40mg Take 1 [facility] e 40 mg EC 4-04 tablet by ity of tablet 00:00: mouth [place] 00 daily. Medical Branch pantoprazol Yes [id number] 40mg Take 1 [facility] e 40 mg EC 4-04 tablet by ity of tablet 00:00: mouth [place] 00 daily. Medical Branch pantoprazol Yes [id number] 40mg Take 1 [facility] e 40 mg EC 4-04 tablet by ity of tablet 00:00: mouth [place] 00 daily. Medical Branch pantoprazol Yes [id number] 40mg Take 1 [facility] e 40 mg EC 4-04 tablet by ity of tablet 00:00: mouth [place] 00 daily. Medical Branch pantoprazol Yes [id number] 40mg Take 1 [facility] e 40 mg EC 4-04 tablet by ity of tablet 00:00: mouth [place] 00 daily. Medical Branch pantoprazol Yes [id number] 40mg Take 1 [facility] e 40 mg EC 4-04 tablet by ity of tablet 00:00: mouth [place] 00 daily. Medical Branch pantoprazol 0 Yes [id number] 40mg Take 1 [facility] e 40 mg EC 4-04 tablet by ity of tablet 00:00: mouth [place] 00 daily. Medical Branch pantoprazol 2021-0 Yes [id number] 40mg Take 1 [facility] e 40 mg EC 4-04 tablet by ity of tablet 00:00: mouth [place] 00 daily. Medical Branch pantoprazol 2021-0 Yes [id number] 40mg Take 1 [facility] e 40 mg EC 4-04 tablet by ity of tablet 00:00: mouth [place] 00 daily. Medical Branch pantoprazol 2021-0 Yes [id number] 40mg Take 1 [facility] e 40 mg EC 4-04 tablet by ity of tablet 00:00: mouth [place] 00 daily. Medical Branch pantoprazol 2022-0 Yes [id number] 40mg Take 1 [facility] e 40 mg EC 4-04 tablet by ity of tablet 00:00: mouth [place] 00 daily. Medical Branch pantoprazol 2-0 Yes [id number] 40mg Take 1 [facility] e 40 mg EC 4-04 tablet by ity of tablet 00:00: mouth [place] 00 daily. Medical Branch pantoprazol 2-0 Yes [id number] 40mg Take 1 [facility] e 40 mg EC 4-04 tablet by ity of tablet 00:00: mouth [place] 00 daily. Medical Branch pantoprazol 2-0 Yes [id number] 40mg Take 1 [facility] e 40 mg EC 4-04 tablet by ity of tablet 00:00: mouth [place] 00 daily. Medical Branch Blood-Gluco 2-0 Yes [id number] Use twice [facility] se Meter 3-08 a day for ity of (ONETOUCH 00:00: ICD CODE [place] VERIO FLEX E11.65 Medical START) Kit Branch Blood-Gluco 2021-0 Yes [id number] Use twice [facility] se Meter 3-08 a day for ity of (ONETOUCH 00:00: ICD [place] VERIO FLEX E11.65 Medical START) Kit Branch Blood-Gluco 2-0 Yes [id number] Use twice [facility] se Meter 3-08 a day for ity of (ONETOUCH 00:00: ICD [place] VERIO FLEX E11.65 Medical START) Kit Branch Blood-Gluco 2-0 Yes [id number] Use twice [facility] se Meter 3-08 a day for ity of (ONETOUCH 00:00: ICD CODE [place] VERIO FLEX E11.65 Medical START) Kit Branch Blood-Gluco 2-0 Yes [id number] Use twice [facility] se Meter 3-08 a day for ity of (ONETOUCH 00:00: ICD [place] VERIO FLEX E11.65 Medical START) Kit Branch Blood-Gluco 2-0 Yes [id number] Use twice [facility] se Meter 3-08 a day for ity of (ONETOUCH 00:00: ICD CODE [place] VERIO FLEX E11.65 Medical START) Kit Branch Blood-Gluco 2022-0 Yes [id number] Use twice [facility] se Meter 3-08 a day for ity of (ONETOUCH 00:00: ICD [place] VERIO FLEX Medical START) Kit Branch Blood-Gluco 2022-0 Yes [id number] Use twice [facility] se Meter 3-08 a day for ity of (ONETOUCH 00:00: ICD [place] VERIO FLEX Medical START) Kit Branch Blood-Gluco 2022-0 Yes [id number] Use twice [facility] se Meter 3-08 a day for ity of (ONETOUCH 00:00: ICD CODE [place] VERIO FLEX Medical START) Kit Branch Blood-Gluco 2022-0 Yes [id number] Use twice [facility] se M[place] 3-08 a day for ity of (ONETOUCH 00:00: ICD [place] VERIO FLEX Medical START) Kit Branch Blood-Gluco 2022-0 Yes [id number] Use twice [facility] se Meter 3-08 a day for ity of (ONETOUCH 00:00: ICD CODE [place] VERIO FLEX Medical START) Kit Branch Blood-Gluco 2022-0 Yes [id number] Use twice [facility] se Meter 3-08 a day for ity of (ONETOUCH 00:00: ICD CODE [place] VERIO FLEX Medical START) Kit Branch Blood-Gluco 2022-0 Yes [id number] Use twice [facility] se Meter 3-08 a day for ity of (ONETOUCH 00:00: ICD CODE [place] VERIO FLEX Medical START) Kit Branch Blood-Gluco 2022-0 Yes [id number] Use twice [facility] se Meter 3-08 a day for ity of (ONETOUCH 00:00: ICD CODE [place] VERIO FLEX Medical START) Kit Branch Blood-Gluco 2022-0 Yes [id number] Use twice [facility] se Meter 3-08 a day for ity of (ONETOUCH 00:00: ICD CODE [place] VERIO FLEX Medical START) Kit Branch Blood-Gluco 2022-0 Yes [id number] Use twice [facility] se Meter 3-08 a day for ity of (ONETOUCH 00:00: ICD CODE [place] VERIO FLEX Medical START) Kit Branch Blood-Gluco 2022-0 Yes [id number] Use twice [facility] se Meter 3-08 a day for ity of (ONETOUCH 00:00: ICD CODE [place] VERIO FLEX Medical START) Kit Branch Blood-Gluco 2-0 Yes [id number] Use twice [facility] se Meter 3-08 a day for ity of (ONETOUCH 00:00: ICD CODE [place] VERIO FLEX Medical START) Kit Branch Blood-Gluco 2-0 Yes [id number] Use twice [facility] se Meter 3-08 a day for ity of (ONETOUCH 00:00: ICD CODE [place] VERIO FLEX Medical START) Kit Branch Blood-Gluco 2021-0 Yes [id number] Use twice [facility] se Meter 3-08 a day for ity of (ONETOUCH 00:00: ICD CODE [place] VERIO FLEX Medical START) Kit Branch Blood-Gluco 2021-0 Yes [id number] Use twice [facility] se Meter 3-08 a day for ity of (ONETOUCH 00:00: ICD CODE [place] VERIO FLEX Medical START) Kit Branch Blood-Gluco 2021-0 Yes [id number] Use twice [facility] se Meter 3-08 a day for ity of (ONETOUCH 00:00: ICD CODE [place] VERIO FLEX Medical START) Kit Branch Blood-Gluco 2021-0 Yes [id number] Use twice [facility] se Meter 3-08 a day for ity of (ONETOUCH 00:00: ICD CODE [place] VERIO FLEX Medical START) Kit Branch Blood-Gluco 2-0 Yes [id number] Use twice [facility] se Meter 3-08 a day for ity of (ONETOUCH 00:00: ICD CODE [place] VERIO FLEX Medical START) Kit Branch Blood-Gluco 2-0 Yes [id number] Use twice [facility] se Meter 3-08 a day for ity of (ONETOUCH 00:00: ICD CODE [place] VERIO FLEX Medical START) Kit Branch mirabegron 2-0 Yes [id number] 50mg Take 1 [facility] (MYRBETRIQ) 1-18 tablet by ity of 50 mg 00:00: mouth [place] tablet 00 daily. Medical Branch mirabegron 2021-0 Yes [id number] 50mg Take 1 [facility] (MYRBETRIQ) 1-18 tablet by ity of 50 mg 00:00: mouth [place] tablet 00 daily. [facility] mirabegron 2021-0 Yes [id number] 50mg Take 1 [facility] (MYRBETRIQ) 1-18 tablet by ity of 50 mg 00:00: mouth [place] tablet 00 daily. [facility] mirabegron 0 Yes [id number] 50mg Take 1 [facility] (MYRBETRIQ) 1-18 tablet by ity of 50 mg 00:00: mouth [place] tablet 00 daily. [facility] mirabegron 2021-0 Yes [id number] 50mg Take 1 [facility] (MYRBETRIQ) 1-18 tablet by ity of 50 mg 00:00: mouth [place] tablet 00 daily. [facility] mirabegron 0 Yes [id number] 50mg Take 1 [facility] (MYRBETRIQ) 1-18 tablet by ity of 50 mg 00:00: mouth [place] tablet 00 daily. [facility] mirabegron 0 Yes [id number] 50mg Take 1 [facility] (MYRBETRIQ) 1-18 tablet by ity of 50 mg 00:00: mouth [place] tablet 00 daily. [facility] mirabegron 0 Yes [id number] 50mg Take 1 [facility] (MYRBETRIQ) 1-18 tablet by ity of 50 mg 00:00: mouth [place] tablet 00 daily. [facility] mirabegron 0 Yes [id number] 50mg Take 1 [facility] (MYRBETRIQ) 1-18 tablet by ity of 50 mg 00:00: mouth [place] tablet 00 daily. [facility] mirabegron 0 Yes [id number] 50mg Take 1 [facility] (MYRBETRIQ) 1-18 tablet by ity of 50 mg 00:00: mouth [place] tablet 00 daily. [facility] mirabegron 0 Yes [id number] 50mg Take 1 [facility] (MYRBETRIQ) 1-18 tablet by ity of 50 mg 00:00: mouth [place] tablet 00 daily. [facility] mirabegron 2021-0 Yes [id number] 50mg Take 1 [facility] (MYRBETRIQ) 1-18 tablet by ity of 50 mg 00:00: mouth [place] tablet 00 daily. [facility] mirabegron 2021-0 Yes [id number] 50mg Take 1 [facility] (MYRBETRIQ) 1-18 tablet by ity of 50 mg 00:00: mouth [place] tablet 00 daily. [facility] mirabegron 0 Yes [id number] 50mg Take 1 [facility] (MYRBETRIQ) 1-18 tablet by ity of 50 mg 00:00: mouth [place] tablet 00 daily. [facility] mirabegron 0 Yes [id number] 50mg Take 1 [facility] (MYRBETRIQ) 1-18 tablet by ity of 50 mg 00:00: mouth [place] tablet 00 daily. [facility] mirabegron 0 Yes [id number] 50mg Take 1 [facility] (MYRBETRIQ) 1-18 tablet by ity of 50 mg 00:00: mouth [place] tablet 00 daily. [facility] mirabegron 0 Yes [id number] 50mg Take 1 [facility] (MYRBETRIQ) 1-18 tablet by ity of 50 mg 00:00: mouth [place] tablet 00 daily. [facility] mirabegron 0 Yes [id number] 50mg Take 1 [facility] (MYRBETRIQ) 1-18 tablet by ity of 50 mg 00:00: mouth [place] tablet 00 daily. [facility] mirabegron 0 Yes [id number] 50mg Take 1 [facility] (MYRBETRIQ) 1-18 tablet by ity of 50 mg 00:00: mouth [place] tablet 00 daily. [facility] mirabegron 0 Yes [id number] 50mg Take 1 [facility] (MYRBETRIQ) 1-18 tablet by ity of 50 mg 00:00: mouth [place] tablet 00 daily. [facility] mirabegron 0 Yes [id number] 50mg Take 1 [facility] (MYRBETRIQ) 1-18 tablet by ity of 50 mg 00:00: mouth [place] tablet 00 daily. [facility] mirabegron 0 Yes [id number] 50mg Take 1 [facility] (MYRBETRIQ) 1-18 tablet by ity of 50 mg 00:00: mouth [place] tablet 00 daily. [facility] mirabegron 2021-0 Yes [id number] 50mg Take 1 [facility] (MYRBETRIQ) 1-18 tablet by ity of 50 mg 00:00: mouth [place] tablet 00 daily. Medical Branch mirabegron Yes [id number] 50mg Take 1 [facility] (MYRBETRIQ) 1-18 tablet by ity of 50 mg 00:00: mouth [place] tablet 00 daily. Medical Branch mirabegron Yes [id number] 50mg Take 1 [facility] (MYRBETRIQ) 1-18 tablet by ity of 50 mg 00:00: mouth [place] tablet 00 daily. [facility] Branch semaglutide 2020-09 Yes [id number] Inject [facility] (OZEMPIC) 2-01 0.25 mg ity of 0.25 mg or 00:00: under the [place] 0.5 mg(2 00 skin Medical mg/1.5 mL) weekly. Branch Ij semaglutide 2020-09 Yes [id number] Inject [facility] (OZEMPIC) 2-01 0.25 mg ity of 0.25 mg or 00:00: under the [place] 0.5 mg(2 00 skin Medical mg/1.5 mL) weekly. Branch Ij semaglutide 2020-09 Yes [id number] Inject [facility] (OZEMPIC) 2-01 0.25 mg ity of 0.25 mg or 00:00: under the [place] 0.5 mg(2 00 skin Medical mg/1.5 mL) weekly. Branch Ij semaglutide 2020-09 Yes [id number] Inject [facility] (OZEMPIC) 2-01 0.25 mg ity of 0.25 mg or 00:00: under the [place] 0.5 mg(2 00 skin Medical mg/1.5 mL) weekly. Branch PnIj semaglutide 2020-09 Yes [id number] Inject [facility] (OZEMPIC) 2-01 0.25 mg ity of 0.25 mg or 00:00: under the [place] 0.5 mg(2 00 skin Medical mg/1.5 mL) weekly. Branch PnIj semaglutide 2020-09 Yes [id number] Inject [facility] (OZEMPIC) 2-01 0.25 mg ity of 0.25 mg or 00:00: under the [place] 0.5 mg(2 00 skin Medical mg/1.5 mL) weekly. Branch Ij semaglutide 2020-09 Yes [id number] Inject [facility] (OZEMPIC) 2-01 0.25 mg ity of 0.25 mg or 00:00: under the [place] 0.5 mg(2 00 skin Medical mg/1.5 mL) weekly. Branch PnIj semaglutide 2020-09 Yes [id number] Inject [facility] (OZEMPIC) 2-01 0.25 mg ity of 0.25 mg or 00:00: under the [place] 0.5 mg(2 00 skin Medical mg/1.5 mL) weekly. Branch PnIj semaglutide 2020-09 Yes [id number] Inject [facility] (OZEMPIC) 2-01 0.25 mg ity of 0.25 mg or 00:00: under the [place] 0.5 mg(2 00 skin Medical mg/1.5 mL) weekly. Branch PnIj semaglutide 2020-09 Yes [id number] Inject [facility] (OZEMPIC) 2-01 0.25 mg ity of 0.25 mg or 00:00: under the [place] 0.5 mg(2 00 skin Medical mg/1.5 mL) weekly. Branch PnIj semaglutide 2020-09 Yes [id number] Inject [facility] (OZEMPIC) 2-01 0.25 mg ity of 0.25 mg or 00:00: under the [place] 0.5 mg(2 00 skin Medical mg/1.5 mL) weekly. Branch PnIj semaglutide 2020-09 Yes [id number] Inject [facility] (OZEMPIC) 2-01 0.25 mg ity of 0.25 mg or 00:00: under the [place] 0.5 mg(2 00 skin Medical mg/1.5 mL) weekly. Branch PnIj semaglutide 2020-09 Yes [id number] Inject [facility] (OZEMPIC) 2-01 0.25 mg ity of 0.25 mg or 00:00: under the [place] 0.5 mg(2 00 skin Medical mg/1.5 mL) weekly. Branch PnIj semaglutide 2020-09 Yes [id number] Inject [facility] (OZEMPIC) 2-01 0.25 mg ity of 0.25 mg or 00:00: under the [place] 0.5 mg(2 00 skin Medical mg/1.5 mL) weekly. Branch PnIj semaglutide 2020-09 Yes [id number] Inject [facility] (OZEMPIC) 2-01 0.25 mg ity of 0.25 mg or 00:00: under the [place] 0.5 mg(2 00 skin Medical mg/1.5 mL) weekly. Branch PnIj semaglutide 2020-09 Yes [id number] Inject [facility] (OZEMPIC) 2-01 0.25 mg ity of 0.25 mg or 00:00: under the [place] 0.5 mg(2 00 skin Medical mg/1.5 mL) weekly. Branch PnIj semaglutide 2020-09 Yes [id number] Inject [facility] (OZEMPIC) 2-01 0.25 mg ity of 0.25 mg or 00:00: under the [place] 0.5 mg(2 00 skin Medical mg/1.5 mL) weekly. Branch PnIj semaglutide 2020-09 Yes [id number] Inject [facility] (OZEMPIC) 2-01 0.25 mg ity of 0.25 mg or 00:00: under the [place] 0.5 mg(2 00 skin Medical mg/1.5 mL) weekly. Branch PnIj semaglutide 2020-09 Yes [id number] Inject [facility] (OZEMPIC) 2-01 0.25 mg ity of 0.25 mg or 00:00: under the [place] 0.5 mg(2 00 skin Medical mg/1.5 mL) weekly. Branch PnIj semaglutide 2020-09 Yes [id number] Inject [facility] (OZEMPIC) 2-01 0.25 mg ity of 0.25 mg or 00:00: under the [place] 0.5 mg(2 00 skin Medical mg/1.5 mL) weekly. Branch PnIj semaglutide 2020-09 Yes [id number] Inject [facility] (OZEMPIC) 2-01 0.25 mg ity of 0.25 mg or 00:00: under the [place] 0.5 mg(2 00 skin Medical mg/1.5 mL) weekly. Branch PnIj semaglutide 2020-09 Yes [id number] Inject [facility] (OZEMPIC) 2-01 0.25 mg ity of 0.25 mg or 00:00: under the [place] 0.5 mg(2 00 skin Medical mg/1.5 mL) weekly. Branch RyIj semaglutide 2020-09 Yes [id number] Inject [facility] (OZEMPIC) 2-01 0.25 mg ity of 0.25 mg or 00:00: under the [place] 0.5 mg(2 00 skin Medical mg/1.5 mL) weekly. Branch Ij semaglutide 2020-09 Yes [id number] Inject [facility] (OZEMPIC) 2- 0.25 mg ity of 0.25 mg or 00:00: under the [place] 0.5 mg(2 00 skin Medical mg/1.5 mL) weekly. Branch Ij semaglutide 2020-09 Yes [id number] Inject [facility] (OZEMPIC) 2- 0.25 mg ity of 0.25 mg or 00:00: under the [place] 0.5 mg(2 00 skin Medical mg/1.5 mL) weekly. Branch RyIj metformin 2020-09- No [id number] 500mg Take 1 [facility] ER 500 mg 10-27 tablet by ity of 24 hr 00:00: 00:00 mouth [place] tablet 00 :00 daily with Medical breakfast. Branch STOP REGULAR METFORMIN. metformin 2020-09- No [id number] 500mg Take 1 [facility] ER 500 mg 10-27 tablet by ity of 24 hr 00:00: 00:00 mouth [place] tablet 00 :00 daily with Medical breakfast. Branch STOP REGULAR METFORMIN. levothyroxi 2020-09 Yes [id number] 50ug Take 1 [facility] ne 50 mcg 10-04 tablet by ity o f tablet 00:00: mouth [place] 00 every Medical morning. Branch fluticasone 2020-09 Yes [id number] 2{puff} Inhale 2 [facility] propionate 1-09 Puffs ity of (FLOVENT 00:00: every 12 [place] HFA) 110 00 (twelve) Medical mcg/actuati hours. Branch on inhaler Rinse mouth after each use. levalbutero 2020-09 Yes [id number] .63mg Inhale [facility] l 0.63 mg/3 1-09 0.63 mg 3 ity of mL 00:00: (three) [place] nebulizer 00 times Medical solution daily as Branch needed for Wheezing or Shortness of Breath. losartan 50 2020-09 Yes [id number] 50mg Take 1 [facility] mg tablet 1-09 tablet by ity o f 00:00: mouth 2 [place] 00 (two) Medical times Branch daily. clotrimazol 2020-09 Yes [id number] Apply to [facility] e-betametha -09 area(s) 2 ity of sone cream 00:00: (two) [place] 00 times Medical daily. Branch cyclobenzap 2020-09 Yes [id number] TAKE 1 [facility] rine 5 mg -09 TABLET BY ity o f tablet 00:00: MOUTH [place] 00 EVERY 8 Medical HOURS Branch NEEDED econazole 2020-09 Yes [id number] Apply to [facility] nitrate 1 % 10-04 area(s) 2 ity of cream 00:00: (two) [place] 00 times Medical daily. Branch albuterol 2020-09 Yes [id number] 2{puff} Inhale 2 [facility] (PROAIR 1-09 Puffs ity of HFA) 90 00:00: every 6 [place] mcg/actuati 00 (six) Medical on inhaler hours as Branc h needed for Wheezing or Shortness of Breath. triamcinolo 2020-09 Yes [id number] Apply to [facility] ne 0.025 % 10-04 area(s) 3 ity of ointment 00:00: (three) [place] 00 times Medical daily. For Branch itching diltiazem 2020-09 Yes [id number] 120mg Take 1 U nivers (CARTIA XT) 09 capsule by it y of 120 mg 24 00:00: mouth 2 [place] hr capsule 00 (two) Medical times Branch daily. cyanocobala 2020-09 Yes [id number] 1000ug 1 mL by [facility] min 1,000 1-09 Intramuscu ity of mcg/mL 00:00: lar route [place] injection 00 every 2 Medical (two) Branch weeks. levothyroxi 2020-09 Yes [id number] 50ug Take 1 [facility] ne 50 mcg -09 tablet by ity o f tablet 00:00: mouth [place] 00 every Medical morning. Branch fluticasone 2020-09 Yes [id number] 2{puff} Inhale 2 [facility] propionate 1-09 Puffs ity of (FLOVENT 00:00: every 12 [place] HFA) 110 00 (twelve) Medical mcg/actuati hours. Branch on inhaler Rinse mouth after each use. levalbutero 2020-09 Yes [id number] .63mg Inhale [facility] l 0.63 mg/3 1-09 0.63 mg 3 ity of mL 00:00: (three) [place] nebulizer 00 times Medical solution daily as Branch needed for Wheezing or Shortness of Breath. losartan 50 2020-09 Yes [id number] 50mg Take 1 [facility] mg tablet -09 tablet by ity o f 00:00: mouth 2 [place] 00 (two) Medical times Branch daily. clotrimazol 2020-09 Yes [id number] Apply to [facility] e-betametha 09 area(s) 2 ity of sone cream 00:00: (two) [place] 00 times Medical daily. Branch cyclobenzap 2020-09 Yes [id number] TAKE 1 [facility] rine 5 mg 10-04 TABLET BY ity o f tablet 00:00: MOUTH [place] 00 EVERY 8 Medical HOURS Branch NEEDED econazole 2020-09 Yes [id number] Apply to [facility] nitrate 1 % 10-04 area(s) 2 ity of cream 00:00: (two) [place] 00 times Medical daily. Branch albuterol 2020-09 Yes [id number] 2{puff} Inhale 2 [facility] (PROAIR -09 Puffs ity of HFA) 90 00:00: every 6 [place] mcg/actuati 00 (six) Medical on inhaler hours as Branc h needed for Wheezing or Shortness of Breath. triamcinolo 2020-09 Yes [id number] Apply to [facility] ne 0.025 % 10-04 area(s) 3 ity of ointment 00:00: (three) [place] 00 times Medical daily. For Branch itching diltiazem 2020-09 Yes [id number] 120mg Take 1 U nivers (CARTIA XT) 09 capsule by it y of 120 mg 24 00:00: mouth 2 [place] hr capsule 00 (two) Medical times Branch daily. cyanocobala 2020-09 Yes [id number] 1000ug 1 mL by [facility] min 1,000 -09 Intramuscu ity of mcg/mL 00:00: lar route [place] injection 00 every 2 Medical (two) Branch weeks. levothyroxi 2020-09 Yes [id number] 50ug Take 1 [facility] ne 50 mcg 1-09 tablet by ity o f tablet 00:00: mouth [place] 00 every Medical morning. Branch fluticasone 2020-09 Yes [id number] 2{puff} Inhale 2 [facility] propionate 1-09 Puffs ity of (FLOVENT 00:00: every 12 [place] HFA) 110 00 (twelve) Medical mcg/actuati hours. Branch on inhaler Rinse mouth after each use. levalbutero 2020-09 Yes [id number] .63mg Inhale [facility] l 0.63 mg/3 1-09 0.63 mg 3 ity of mL 00:00: (three) [place] nebulizer 00 times Medical solution daily as Branch needed for Wheezing or Shortness of Breath. losartan 50 2020-09 Yes [id number] 50mg Take 1 [facility] mg tablet 1-09 tablet by ity o f 00:00: mouth 2 [place] 00 (two) Medical times Branch daily. clotrimazol 2020-09 Yes [id number] Apply to [facility] e-betametha -09 area(s) 2 ity of sone cream 00:00: (two) [place] 00 times Medical daily. Branch cyclobenzap 2020-09 Yes [id number] TAKE 1 [facility] rine 5 mg -09 TABLET BY ity o f tablet 00:00: MOUTH [place] 00 EVERY 8 Medical HOURS Branch NEEDED econazole 2020-09 Yes [id number] Apply to [facility] nitrate 1 % 10-04 area(s) 2 ity of cream 00:00: (two) [place] 00 times Medical daily. Branch albuterol 2020-09 Yes [id number] 2{puff} Inhale 2 [facility] (PROAIR 1-09 Puffs ity of HFA) 90 00:00: every 6 [place] mcg/actuati 00 (six) Medical on inhaler hours as Branc h needed for Wheezing or Shortness of Breath. triamcinolo 2020-09 Yes [id number] Apply to [facility] ne 0.025 % -09 area(s) 3 ity of ointment 00:00: (three) [place] 00 times Medical daily. For Branch itching diltiazem 2020-09 Yes [id number] 120mg Take 1 [facility] (CARTIA XT) -09 capsule by it y of 120 mg 24 00:00: mouth 2 [place] hr capsule 00 (two) Medical times Branch daily. cyanocobala 2020-09 Yes [id number] 1000ug 1 mL by [facility] min 1,000 1-09 Intramuscu ity of mcg/mL 00:00: lar route [place] injection 00 every 2 Medical (two) Branch weeks. levothyroxi 2020-09 Yes [id number] 50ug Take 1 [facility] ne 50 mcg 1-09 tablet by ity o f tablet 00:00: mouth [place] 00 every Medical morning. Branch fluticasone 2020-09 Yes [id number] 2{puff} Inhale 2 [facility] propionate 1-09 Puffs ity of (FLOVENT 00:00: every 12 [place] HFA) 110 00 (twelve) Medical mcg/actuati hours. Branch on inhaler Rinse mouth after each use. levalbutero 2020-09 Yes [id number] .63mg Inhale [facility] l 0.63 mg/3 1-09 0.63 mg 3 ity of mL 00:00: (three) [place] nebulizer 00 times Medical solution daily as Branch needed for Wheezing or Shortness of Breath. losartan 50 2020-09 Yes [id number] 50mg Take 1 [facility] mg tablet 1-09 tablet by ity o f 00:00: mouth 2 [place] 00 (two) Medical times Branch daily. clotrimazol 2020-09 Yes [id number] Apply to [facility] e-betametha -09 area(s) 2 ity of sone cream 00:00: (two) [place] 00 times Medical daily. Branch cyclobenzap 2020-09 Yes [id number] TAKE 1 [facility] rine 5 mg 1-09 TABLET BY ity o f tablet 00:00: MOUTH [place] 00 EVERY 8 Medical HOURS Branch NEEDED econazole 2020-09 Yes [id number] Apply to [facility] nitrate 1 % 1-09 area(s) 2 ity of cream 00:00: (two) [place] 00 times Medical daily. Branch albuterol 2020-09 Yes [id number] 2{puff} Inhale 2 [facility] (PROAIR 1-09 Puffs ity of HFA) 90 00:00: every 6 [place] mcg/actuati 00 (six) Medical on inhaler hours as Branc h needed for Wheezing or Shortness of Breath. triamcinolo 2020-09 Yes [id number] Apply to [facility] ne 0.025 % 1-09 area(s) 3 ity of ointment 00:00: (three) [place] 00 times Medical daily. For Branch itching diltiazem 2020-09 Yes [id number] 120mg Take 1 [facility] (CARTIA XT) 1-09 capsule by it y of 120 mg 24 00:00: mouth 2 [place] hr capsule 00 (two) Medical times Branch daily. cyanocobala 2020-09 Yes [id number] 1000ug 1 mL by [facility] min 1,000 -09 Intramuscu ity of mcg/mL 00:00: lar route [place] injection 00 every 2 Medical (two) Branch weeks. levothyroxi 2020-09 Yes [id number] 50ug Take 1 [facility] ne 50 mcg -09 tablet by ity o f tablet 00:00: mouth [place] 00 every Medical morning. Branch fluticasone 2020-09 Yes [id number] 2{puff} Inhale 2 [facility] propionate 1-09 Puffs ity of (FLOVENT 00:00: every 12 [place] HFA) 110 00 (twelve) Medical mcg/actuati hours. Branch on inhaler Rinse mouth after each use. levalbutero 2020-09 Yes [id number] .63mg Inhale [facility] l 0.63 mg/3 -09 0.63 mg 3 ity of mL 00:00: (three) [place] nebulizer 00 times Medical solution daily as Branch needed for Wheezing or Shortness of Breath. losartan 50 2020-09 Yes [id number] 50mg Take 1 [facility] mg tablet 09 tablet by ity o f 00:00: mouth 2 [place] 00 (two) Medical times Branch daily. clotrimazol 2020-09 Yes [id number] Apply to [facility] e-betametha 10-04 area(s) 2 ity of sone cream 00:00: (two) [place] 00 times Medical daily. Branch cyclobenzap 2020-09 Yes [id number] TAKE 1 [facility] rine 5 mg 1-09 TABLET BY ity o f tablet 00:00: MOUTH [place] 00 EVERY 8 Medical HOURS Branch NEEDED econazole 2020-09 Yes [id number] Apply to [facility] nitrate 1 % 09 area(s) 2 ity of cream 00:00: (two) [place] 00 times Medical daily. Branch albuterol 2020-09 Yes [id number] 2{puff} Inhale 2 [facility] (PROAIR 1-09 Puffs ity of HFA) 90 00:00: every 6 [place] mcg/actuati 00 (six) Medical on inhaler hours as Branc h needed for Wheezing or Shortness of Breath. triamcinolo 2020-09 Yes [id number] Apply to [facility] ne 0.025 % 1-09 area(s) 3 ity of ointment 00:00: (three) [place] 00 times Medical daily. For Branch itching diltiazem 2020-09 Yes [id number] 120mg Take 1 [facility] (CARTIA XT) -09 capsule by it y of 120 mg 24 00:00: mouth 2 [place] hr capsule 00 (two) Medical times Branch daily. cyanocobala 2020-09 Yes [id number] 1000ug 1 mL by [facility] min 1,000 1-09 Intramuscu ity of mcg/mL 00:00: lar route [place] injection 00 every 2 Medical (two) Branch weeks. levothyroxi 2020-09 Yes [id number] 50ug Take 1 [facility] ne 50 mcg -09 tablet by ity o f tablet 00:00: mouth [place] 00 every Medical morning. Branch fluticasone 2020-09 Yes [id number] 2{puff} Inhale 2 [facility] propionate 1-09 Puffs ity of (FLOVENT 00:00: every 12 [place] HFA) 110 00 (twelve) Medical mcg/actuati hours. Branch on inhaler Rinse mouth after each use. levalbutero 2020-09 Yes [id number] .63mg Inhale [facility] l 0.63 mg/3 1-09 0.63 mg 3 ity of mL 00:00: (three) [place] nebulizer 00 times Medical solution daily as Branch needed for Wheezing or Shortness of Breath. losartan 50 2020-09 Yes [id number] 50mg Take 1 [facility] mg tablet -09 tablet by ity o f 00:00: mouth 2 [place] 00 (two) Medical times Branch daily. clotrimazol 2020-09 Yes [id number] Apply to [facility] e-betametha -09 area(s) 2 ity of sone cream 00:00: (two) [place] 00 times Medical daily. Branch cyclobenzap 2020-09 Yes [id number] TAKE 1 [facility] rine 5 mg 1-09 TABLET BY ity o f tablet 00:00: MOUTH [place] 00 EVERY 8 Medical HOURS Branch NEEDED econazole 2020-09 Yes [id number] Apply to [facility] nitrate 1 % -09 area(s) 2 ity of cream 00:00: (two) [place] 00 times Medical daily. Branch albuterol 2020-09 Yes [id number] 2{puff} Inhale 2 [facility] (PROAIR 1-09 Puffs ity of HFA) 90 00:00: every 6 [place] mcg/actuati 00 (six) Medical on inhaler hours as Branc h needed for Wheezing or Shortness of Breath. triamcinolo 2020-09 Yes [id number] Apply to [facility] ne 0.025 % -09 area(s) 3 ity of ointment 00:00: (three) [place] 00 times Medical daily. For Branch itching diltiazem 2020-09 Yes [id number] 120mg Take 1 [facility] (CARTIA XT) 09 capsule by it y of 120 mg 24 00:00: mouth 2 [place] hr capsule 00 (two) Medical times Branch daily. cyanocobala 2020-09 Yes [id number] 1000ug 1 mL by [facility] min 1,000 1-09 Intramuscu ity of mcg/mL 00:00: lar route [place] injection 00 every 2 Medical (two) Branch weeks. levothyroxi 2020-09 Yes [id number] 50ug Take 1 [facility] ne 50 mcg -09 tablet by ity o f tablet 00:00: mouth [place] 00 every Medical morning. Branch fluticasone 2020-09 Yes [id number] 2{puff} Inhale 2 [facility] propionate 1-09 Puffs ity of (FLOVENT 00:00: every 12 [place] HFA) 110 00 (twelve) Medical mcg/actuati hours. Branch on inhaler Rinse mouth after each use. levalbutero 2020-09 Yes [id number] .63mg Inhale [facility] l 0.63 mg/3 1-09 0.63 mg 3 ity of mL 00:00: (three) [place] nebulizer 00 times Medical solution daily as Branch needed for Wheezing or Shortness of Breath. losartan 50 2020-09 Yes [id number] 50mg Take 1 [facility] mg tablet 1-09 tablet by ity o f 00:00: mouth 2 [place] 00 (two) Medical times Branch daily. clotrimazol 2020-09 Yes [id number] Apply to [facility] e-betametha -09 area(s) 2 ity of sone cream 00:00: (two) [place] 00 times Medical daily. Branch cyclobenzap 2020-09 Yes [id number] TAKE 1 [facility] rine 5 mg -09 TABLET BY ity o f tablet 00:00: MOUTH [place] 00 EVERY 8 Medical HOURS Branch NEEDED econazole 2020-09 Yes [id number] Apply to [facility] nitrate 1 % 09 area(s) 2 ity of cream 00:00: (two) [place] 00 times Medical daily. Branch albuterol 2020-09 Yes [id number] 2{puff} Inhale 2 [facility] (PROAIR 1-09 Puffs ity of HFA) 90 00:00: every 6 [place] mcg/actuati 00 (six) Medical on inhaler hours as Branc h needed for Wheezing or Shortness of Breath. triamcinolo 2020-09 Yes [id number] Apply to [facility] ne 0.025 % 10-04 area(s) 3 ity of ointment 00:00: (three) [place] 00 times Medical daily. For Branch itching diltiazem 2020-09 Yes [id number] 120mg Take 1 [facility] (CARTIA XT) 09 capsule by it y of 120 mg 24 00:00: mouth 2 [place] hr capsule 00 (two) Medical times Branch daily. cyanocobala 2020-09 Yes [id number] 1000ug 1 mL by [facility] min 1,000 1-09 Intramuscu ity of mcg/mL 00:00: lar route [place] injection 00 every 2 Medical (two) Branch weeks. levothyroxi 2020-09 Yes [id number] 50ug Take 1 [facility] ne 50 mcg -09 tablet by ity o f tablet 00:00: mouth [place] 00 every Medical morning. Branch fluticasone 2020-09 Yes [id number] 2{puff} Inhale 2 [facility] propionate 1-09 Puffs ity of (FLOVENT 00:00: every 12 [place] HFA) 110 00 (twelve) Medical mcg/actuati hours. Branch on inhaler Rinse mouth after each use. levalbutero 2020-09 Yes [id number] .63mg Inhale [facility] l 0.63 mg/3 1-09 0.63 mg 3 ity of mL 00:00: (three) [place] nebulizer 00 times Medical solution daily as Branch needed for Wheezing or Shortness of Breath. losartan 50 2020-09 Yes [id number] 50mg Take 1 [facility] mg tablet 1-09 tablet by ity o f 00:00: mouth 2 [place] 00 (two) Medical times Branch daily. clotrimazol 2020-09 Yes [id number] Apply to [facility] e-betametha 09 area(s) 2 ity of sone cream 00:00: (two) [place] 00 times Medical daily. Branch cyclobenzap 2020-09 Yes [id number] TAKE 1 [facility] rine 5 mg -09 TABLET BY ity o f tablet 00:00: MOUTH [place] 00 EVERY 8 Medical HOURS Branch NEEDED econazole 2020-09 Yes [id number] Apply to [facility] nitrate 1 % 10-04 area(s) 2 ity of cream 00:00: (two) [place] 00 times Medical daily. Branch albuterol 2020-09 Yes [id number] 2{puff} Inhale 2 [facility] (PROAIR 1-09 Puffs ity of HFA) 90 00:00: every 6 [place] mcg/actuati 00 (six) Medical on inhaler hours as Branc h needed for Wheezing or Shortness of Breath. triamcinolo 2020-09 Yes [id number] Apply to [facility] ne 0.025 % 10-04 area(s) 3 ity of ointment 00:00: (three) [place] 00 times Medical daily. For Branch itching diltiazem 2020-09 Yes [id number] 120mg Take 1 [facility] (CARTIA XT) 09 capsule by it y of 120 mg 24 00:00: mouth 2 [place] hr capsule 00 (two) Medical times Branch daily. cyanocobala 2020-09 Yes [id number] 1000ug 1 mL by [facility] min 1,000 1-09 Intramuscu ity of mcg/mL 00:00: lar route [place] injection 00 every 2 Medical (two) Branch weeks. levothyroxi 2020-09 Yes [id number] 50ug Take 1 [facility] ne 50 mcg 1-09 tablet by ity o f tablet 00:00: mouth [place] 00 every Medical morning. Branch fluticasone 2020-09 Yes [id number] 2{puff} Inhale 2 [facility] propionate 1-09 Puffs ity of (FLOVENT 00:00: every 12 [place] HFA) 110 00 (twelve) Medical mcg/actuati hours. Branch on inhaler Rinse mouth after each use. levalbutero 2020-09 Yes [id number] .63mg Inhale [facility] l 0.63 mg/3 1-09 0.63 mg 3 ity of mL 00:00: (three) [place] nebulizer 00 times Medical solution daily as Branch needed for Wheezing or Shortness of Breath. losartan 50 2020-09 Yes [id number] 50mg Take 1 [facility] mg tablet 09 tablet by ity o f 00:00: mouth 2 [place] 00 (two) Medical times Branch daily. clotrimazol 2020-09 Yes [id number] Apply to [facility] e-betametha 10-04 area(s) 2 ity of sone cream 00:00: (two) [place] 00 times Medical daily. Branch cyclobenzap 2020-09 Yes [id number] TAKE 1 [facility] rine 5 mg 10-04 TABLET BY ity o f tablet 00:00: MOUTH [place] 00 EVERY 8 Medical HOURS Branch NEEDED econazole 2020-09 Yes [id number] Apply to [facility] nitrate 1 % 10-04 area(s) 2 ity of cream 00:00: (two) [place] 00 times Medical daily. Branch albuterol 2020-09 Yes [id number] 2{puff} Inhale 2 [facility] (PROAIR 1-09 Puffs ity of HFA) 90 00:00: every 6 [place] mcg/actuati 00 (six) Medical on inhaler hours as Branc h needed for Wheezing or Shortness of Breath. triamcinolo 2020-09 Yes [id number] Apply to [facility] ne 0.025 % 10-04 area(s) 3 ity of ointment 00:00: (three) [place] 00 times Medical daily. For Branch itching diltiazem 2020-09 Yes [id number] 120mg Take 1 [facility] n[facility] (CARTIA XT) 09 capsule by it y of 120 mg 24 00:00: mouth 2 [place] hr capsule 00 (two) Medical times Branch daily. cyanocobala 2020-09 Yes [id number] 1000ug 1 mL by [facility] min 1,000 10-04 Intramuscu ity of mcg/mL 00:00: lar route [place] injection 00 every 2 Medical (two) Branch weeks. levothyroxi 2020-09 Yes [id number] 50ug Take 1 [facility] ne 50 mcg 1-09 tablet by ity o f tablet 00:00: mouth [place] 00 every Medical morning. Branch fluticasone 2020-09 Yes [id number] 2{puff} Inhale 2 [facility] propionate 1-09 Puffs ity of (FLOVENT 00:00: every 12 [place] HFA) 110 00 (twelve) Medical mcg/actuati hours. Branch on inhaler Rinse mouth after each use. levalbutero 2020-09 Yes [id number] .63mg Inhale [facility] l 0.63 mg/3 1-09 0.63 mg 3 ity of mL 00:00: (three) [place] nebulizer 00 times Medical solution daily as Branch needed for Wheezing or Shortness of Breath. losartan 50 2020-09 Yes [id number] 50mg Take 1 [facility] mg tablet -09 tablet by ity o f 00:00: mouth 2 [place] 00 (two) Medical times Branch daily. clotrimazol 2020-09 Yes [id number] Apply to [facility] e-betametha -09 area(s) 2 ity of sone cream 00:00: (two) [place] 00 times Medical daily. Branch cyclobenzap 2020-09 Yes [id number] TAKE 1 [facility] rine 5 mg -09 TABLET BY ity o f tablet 00:00: MOUTH [place] 00 EVERY 8 Medical HOURS Branch NEEDED econazole 2020-09 Yes [id number] Apply to [facility] nitrate 1 % 10-04 area(s) 2 ity of cream 00:00: (two) [place] 00 times Medical daily. Branch albuterol 2020-09 Yes [id number] 2{puff} Inhale 2 [facility] (PROAIR 1-09 Puffs ity of HFA) 90 00:00: every 6 [place] mcg/actuati 00 (six) Medical on inhaler hours as Branc h needed for Wheezing or Shortness of Breath. triamcinolo 2020-09 Yes [id number] Apply to [facility] ne 0.025 % -09 area(s) 3 ity of ointment 00:00: (three) [place] 00 times Medical daily. For Branch itching diltiazem 2020-09 Yes [id number] 120mg Take 1 [facility] (CARTIA XT) -09 capsule by it y of 120 mg 24 00:00: mouth 2 [place] hr capsule 00 (two) Medical times Branch daily. cyanocobala 2020-09 Yes [id number] 1000ug 1 mL by [facility] min 1,000 1-09 Intramuscu ity of mcg/mL 00:00: lar route [place] injection 00 every 2 Medical (two) Branch weeks. levothyroxi 2020-09 Yes [id number] 50ug Take 1 [facility] ne 50 mcg 1-09 tablet by ity o f tablet 00:00: mouth [place] 00 every Medical morning. Branch fluticasone 2020-09 Yes [id number] 2{puff} Inhale 2 [facility] propionate 1-09 Puffs ity of (FLOVENT 00:00: every 12 [place] HFA) 110 00 (twelve) Medical mcg/actuati hours. Branch on inhaler Rinse mouth after each use. levalbutero 2020-09 Yes [id number] .63mg Inhale [facility] l 0.63 mg/3 1-09 0.63 mg 3 ity of mL 00:00: (three) [place] nebulizer 00 times Medical solution daily as Branch needed for Wheezing or Shortness of Breath. losartan 50 2020-09 Yes [id number] 50mg Take 1 [facility] mg tablet 1-09 tablet by ity o f 00:00: mouth 2 [place] 00 (two) Medical times Branch daily. clotrimazol 2020-09 Yes [id number] Apply to [facility] e-betametha 09 area(s) 2 ity of sone cream 00:00: (two) [place] 00 times Medical daily. Branch cyclobenzap 2020-09 Yes [id number] TAKE 1 [facility] rine 5 mg 1-09 TABLET BY ity o f tablet 00:00: MOUTH [place] 00 EVERY 8 Medical HOURS Branch NEEDED econazole 2020-09 Yes [id number] Apply to [facility] nitrate 1 % 09 area(s) 2 ity of cream 00:00: (two) [place] 00 times Medical daily. Branch albuterol 2020-09 Yes [id number] 2{puff} Inhale 2 [facility] (PROAIR 1-09 Puffs ity of HFA) 90 00:00: every 6 [place] mcg/actuati 00 (six) Medical on inhaler hours as Branc h needed for Wheezing or Shortness of Breath. triamcinolo 2020-09 Yes [id number] Apply to [facility] ne 0.025 % 10-04 area(s) 3 ity of ointment 00:00: (three) [place] 00 times Medical daily. For Branch itching diltiazem 2020-09 Yes [id number] 120mg Take 1 [facility] (CARTIA XT) 09 capsule by it y of 120 mg 24 00:00: mouth 2 [place] hr capsule 00 (two) Medical times Branch daily. cyanocobala 2020-09 Yes [id number] 1000ug 1 mL by [facility] min 1,000 09 Intramuscu ity of mcg/mL 00:00: lar route [place] injection 00 every 2 Medical (two) Branch weeks. levothyroxi 2020-09 Yes [id number] 50ug Take 1 [facility] ne 50 mcg -09 tablet by ity o f tablet 00:00: mouth [place] 00 every Medical morning. Branch fluticasone 2020-09 Yes [id number] 2{puff} Inhale 2 [facility] propionate 1-09 Puffs ity of (FLOVENT 00:00: every 12 [place] HFA) 110 00 (twelve) Medical mcg/actuati hours. Branch on inhaler Rinse mouth after each use. levalbutero 2020-09 Yes [id number] .63mg Inhale [facility] l 0.63 mg/3 -09 0.63 mg 3 ity of mL 00:00: (three) [place] nebulizer 00 times Medical solution daily as Branch needed for Wheezing or Shortness of Breath. clotrimazol 2020-09 Yes [id number] Apply to [facility] e-betametha 10-04 area(s) 2 ity of sone cream 00:00: (two) [place] 00 times Medical daily. Branch cyclobenzap 2020-09 Yes [id number] TAKE 1 [facility] rine 5 mg -09 TABLET BY ity o f tablet 00:00: MOUTH [place] 00 EVERY 8 Medical HOURS Branch NEEDED econazole 2020-09 Yes [id number] Apply to [facility] nitrate 1 % 09 area(s) 2 ity of cream 00:00: (two) [place] 00 times Medical daily. Branch albuterol 2020-09 Yes [id number] 2{puff} Inhale 2 [facility] (PROAIR 1-09 Puffs ity of HFA) 90 00:00: every 6 [place] mcg/actuati 00 (six) Medical on inhaler hours as Branc h needed for Wheezing or Shortness of Breath. triamcinolo 2020-09 Yes [id number] Apply to [facility] ne 0.025 % 1-09 area(s) 3 ity of ointment 00:00: (three) [place] 00 times Medical daily. For Branch itching cyanocobala 2020-09 Yes [id number] 1000ug 1 mL by [facility] min 1,000 1-09 Intramuscu ity of mcg/mL 00:00: lar route [place] injection 00 every 2 Medical (two) Branch weeks. levothyroxi 2020-09 Yes [id number] 50ug Take 1 [facility] ne 50 mcg 1-09 tablet by ity o f tablet 00:00: mouth [place] 00 every Medical morning. Branch fluticasone 2020-09 Yes [id number] 2{puff} Inhale 2 [facility] propionate 1-09 Puffs ity of (FLOVENT 00:00: every 12 [place] HFA) 110 00 (twelve) Medical mcg/actuati hours. Branch on inhaler Rinse mouth after each use. levalbutero 2020-09 Yes [id number] .63mg Inhale [facility] l 0.63 mg/3 1-09 0.63 mg 3 ity of mL 00:00: (three) [place] nebulizer 00 times Medical solution daily as Branch needed for Wheezing or Shortness of Breath. clotrimazol 2020-09 Yes [id number] Apply to [facility] e-betametha 09 area(s) 2 ity of sone cream 00:00: (two) [place] 00 times Medical daily. Branch cyclobenzap 2020-09 Yes [id number] TAKE 1 [facility] rine 5 mg 1-09 TABLET BY ity o f tablet 00:00: MOUTH [place] 00 EVERY 8 Medical HOURS Branch NEEDED econazole 2020-09 Yes [id number] Apply to [facility] nitrate 1 % 1-09 area(s) 2 ity of cream 00:00: (two) [place] 00 times Medical daily. Branch albuterol 2020-09 Yes [id number] 2{puff} Inhale 2 [facility] (PROAIR 1-09 Puffs ity of HFA) 90 00:00: every 6 [place] mcg/actuati 00 (six) Medical on inhaler hours as Branc h needed for Wheezing or Shortness of Breath. triamcinolo 2020-09 Yes [id number] Apply to [facility] ne 0.025 % 1-09 area(s) 3 ity of ointment 00:00: (three) [place] 00 times Medical daily. For Branch itching cyanocobala 2020-09 Yes [id number] 1000ug 1 mL by [facility] min 1,000 1-09 Intramuscu ity of mcg/mL 00:00: lar route [place] injection 00 every 2 Medical (two) Branch weeks. levothyroxi 2020-09 Yes [id number] 50ug Take 1 [facility] ne 50 mcg 1-09 tablet by ity o f tablet 00:00: mouth [place] 00 every Medical morning. Branch fluticasone 2020-09 Yes [id number] 2{puff} Inhale 2 [facility] propionate 1-09 Puffs ity of (FLOVENT 00:00: every 12 [place] HFA) 110 00 (twelve) Medical mcg/actuati hours. Branch on inhaler Rinse mouth after each use. levalbutero 2020-09 Yes [id number] .63mg Inhale [facility] l 0.63 mg/3 1-09 0.63 mg 3 ity of mL 00:00: (three) [place] nebulizer 00 times Medical solution daily as Branch needed for Wheezing or Shortness of Breath. clotrimazol 2020-09 Yes [id number] Apply to [facility] e-betametha 10-04 area(s) 2 ity of sone cream 00:00: (two) [place] 00 times Medical daily. Branch cyclobenzap 2020-09 Yes [id number] TAKE 1 [facility] rine 5 mg -09 TABLET BY ity o f tablet 00:00: MOUTH [place] 00 EVERY 8 Medical HOURS Branch NEEDED econazole 2020-09 Yes [id number] Apply to [facility] nitrate 1 % -09 area(s) 2 ity of cream 00:00: (two) [place] 00 times Medical daily. Branch albuterol 2020-09 Yes [id number] 2{puff} Inhale 2 [facility] (PROAIR 1-09 Puffs ity of HFA) 90 00:00: every 6 [place] mcg/actuati 00 (six) Medical on inhaler hours as Branc h needed for Wheezing or Shortness of Breath. triamcinolo 2020-09 Yes [id number] Apply to [facility] ne 0.025 % 1- area(s) 3 ity of ointment 00:00: (three) [place] 00 times Medical daily. For Branch itching cyanocobala 2020-09 Yes [id number] 1000ug 1 mL by [facility] min 1,000 1-09 Intramuscu ity of mcg/mL 00:00: lar route [place] injection 00 every 2 Medical (two) Branch weeks. levothyroxi 2020-09 Yes [id number] 50ug Take 1 [facility] ne 50 mcg 1-09 tablet by ity o f tablet 00:00: mouth [place] 00 every Medical morning. Branch fluticasone 2020-09 Yes [id number] 2{puff} Inhale 2 [facility] propionate 1-09 Puffs ity of (FLOVENT 00:00: every 12 [place] HFA) 110 00 (twelve) Medical mcg/actuati hours. Branch on inhaler Rinse mouth after each use. levalbutero 2020-09 Yes [id number] .63mg Inhale [facility] l 0.63 mg/3 -09 0.63 mg 3 ity of mL 00:00: (three) [place] nebulizer 00 times Medical solution daily as Branch needed for Wheezing or Shortness of Breath. clotrimazol 2020-09 Yes [id number] Apply to [facility] e-betametha 10-04 area(s) 2 ity of sone cream 00:00: (two) [place] 00 times Medical daily. Branch cyclobenzap 2020-09 Yes [id number] TAKE 1 [facility] rine 5 mg -09 TABLET BY ity o f tablet 00:00: MOUTH [place] 00 EVERY 8 Medical HOURS Branch NEEDED econazole 2020-09 Yes [id number] Apply to [facility] nitrate 1 % -09 area(s) 2 ity of cream 00:00: (two) [place] 00 times Medical daily. Branch albuterol 2020-09 Yes [id number] 2{puff} Inhale 2 [facility] (PROAIR 1-09 Puffs ity of HFA) 90 00:00: every 6 [place] mcg/actuati 00 (six) Medical on inhaler hours as Branc h needed for Wheezing or Shortness of Breath. triamcinolo 2020-09 Yes [id number] Apply to [facility] ne 0.025 % 1-09 area(s) 3 ity of ointment 00:00: (three) [place] 00 times Medical daily. For Branch itching cyanocobala 2020-09 Yes [id number] 1000ug 1 mL by [facility] min 1,000 1-09 Intramuscu ity of mcg/mL 00:00: lar route [place] injection 00 every 2 Medical (two) Branch weeks. levothyroxi 2020-09 Yes [id number] 50ug Take 1 [facility] ne 50 mcg 1-09 tablet by ity o f tablet 00:00: mouth [place] 00 every Medical morning. Branch fluticasone 2020-09 Yes [id number] 2{puff} Inhale 2 [facility] propionate 1-09 Puffs ity of (FLOVENT 00:00: every 12 [place] HFA) 110 00 (twelve) Medical mcg/actuati hours. Branch on inhaler Rinse mouth after each use. levalbutero 2020-09 Yes [id number] .63mg Inhale [facility] l 0.63 mg/3 1-09 0.63 mg 3 ity of mL 00:00: (three) [place] nebulizer 00 times Medical solution daily as Branch needed for Wheezing or Shortness of Breath. clotrimazol 2020-09 Yes [id number] Apply to [facility] e-betametha 1-09 area(s) 2 ity of sone cream 00:00: (two) [place] 00 times Medical daily. Branch cyclobenzap 2020-09 Yes [id number] TAKE 1 [facility] rine 5 mg 1-09 TABLET BY ity o f tablet 00:00: MOUTH [place] 00 EVERY 8 Medical HOURS Branch NEEDED econazole 2020-09 Yes [id number] Apply to [facility] nitrate 1 % 1-09 area(s) 2 ity of cream 00:00: (two) [place] 00 times Medical daily. Branch albuterol 2020-09 Yes [id number] 2{puff} Inhale 2 [facility] (PROAIR 1-09 Puffs ity of HFA) 90 00:00: every 6 [place] mcg/actuati 00 (six) Medical on inhaler hours as Branc h needed for Wheezing or Shortness of Breath. triamcinolo 2020-09 Yes [id number] Apply to [facility] ne 0.025 % 1-09 area(s) 3 ity of ointment 00:00: (three) [place] 00 times Medical daily. For Branch itching cyanocobala 2020-09 Yes [id number] 1000ug 1 mL by [facility] min 1,000 1-09 Intramuscu ity of mcg/mL 00:00: lar route [place] injection 00 every 2 Medical (two) Branch weeks. levothyroxi 2020-09 Yes [id number] 50ug Take 1 [facility] ne 50 mcg 1-09 tablet by ity o f tablet 00:00: mouth [place] 00 every Medical morning. Branch fluticasone 2020-09 Yes [id number] 2{puff} Inhale 2 [facility] propionate 1-09 Puffs ity of (FLOVENT 00:00: every 12 [place] HFA) 110 00 (twelve) Medical mcg/actuati hours. Branch on inhaler Rinse mouth after each use. levalbutero 2020-09 Yes [id number] .63mg Inhale [facility] l 0.63 mg/3 1-09 0.63 mg 3 ity of mL 00:00: (three) [place] nebulizer 00 times Medical solution daily as Branch needed for Wheezing or Shortness of Breath. clotrimazol 2020-09 Yes [id number] Apply to [facility] e-betametha -09 area(s) 2 ity of sone cream 00:00: (two) [place] 00 times Medical daily. Branch cyclobenzap 2020-09 Yes [id number] TAKE 1 [facility] rine 5 mg -09 TABLET BY ity o f tablet 00:00: MOUTH [place] 00 EVERY 8 Medical HOURS Branch NEEDED econazole 2020-09 Yes [id number] Apply to [facility] nitrate 1 % -09 area(s) 2 ity of cream 00:00: (two) [place] 00 times Medical daily. Branch albuterol 2020-09 Yes [id number] 2{puff} Inhale 2 [facility] (PROAIR 1-09 Puffs ity of HFA) 90 00:00: every 6 [place] mcg/actuati 00 (six) Medical on inhaler hours as Branc h needed for Wheezing or Shortness of Breath. triamcinolo 2020-09 Yes [id number] Apply to [facility] ne 0.025 % 1-09 area(s) 3 ity of ointment 00:00: (three) [place] 00 times Medical daily. For Branch itching cyanocobala 2020-09 Yes [id number] 1000ug 1 mL by [facility] min 1,000 1-09 Intramuscu ity of mcg/mL 00:00: lar route [place] injection 00 every 2 Medical (two) Branch weeks. levothyroxi 2020-09 Yes [id number] 50ug Take 1 [facility] ne 50 mcg 1-09 tablet by ity o f tablet 00:00: mouth [place] 00 every Medical morning. Branch fluticasone 2020-09 Yes [id number] 2{puff} Inhale 2 [facility] propionate 1-09 Puffs ity of (FLOVENT 00:00: every 12 [place] HFA) 110 00 (twelve) Medical mcg/actuati hours. Branch on inhaler Rinse mouth after each use. levalbutero 2020-09 Yes [id number] .63mg Inhale [facility] l 0.63 mg/3 1-09 0.63 mg 3 ity of mL 00:00: (three) [place] nebulizer 00 times Medical solution daily as Branch needed for Wheezing or Shortness of Breath. clotrimazol 2020-09 Yes [id number] Apply to [facility] e-betametha 1-09 area(s) 2 ity of sone cream 00:00: (two) [place] 00 times Medical daily. Branch cyclobenzap 2020-09 Yes [id number] TAKE 1 [facility] rine 5 mg 1-09 TABLET BY ity o f tablet 00:00: MOUTH [place] 00 EVERY 8 Medical HOURS Branch NEEDED econazole 2020-09 Yes [id number] Apply to [facility] nitrate 1 % -09 area(s) 2 ity of cream 00:00: (two) [place] 00 times Medical daily. Branch albuterol 2020-09 Yes [id number] 2{puff} Inhale 2 [facility] (PROAIR 1-09 Puffs ity of HFA) 90 00:00: every 6 [place] mcg/actuati 00 (six) Medical on inhaler hours as Branc h needed for Wheezing or Shortness of Breath. triamcinolo 2020-09 Yes [id number] Apply to [facility] ne 0.025 % 1-09 area(s) 3 ity of ointment 00:00: (three) [place] 00 times Medical daily. For Branch itching cyanocobala 2020-09 Yes [id number] 1000ug 1 mL by [facility] min 1,000 1-09 Intramuscu ity of mcg/mL 00:00: lar route [place] injection 00 every 2 Medical (two) Branch weeks. levothyroxi 2020-09 Yes [id number] 50ug Take 1 [facility] ne 50 mcg 1-09 tablet by ity o f tablet 00:00: mouth [place] 00 every Medical morning. Branch fluticasone 2020-09 Yes [id number] 2{puff} Inhale 2 [facility] propionate 1-09 Puffs ity of (FLOVENT 00:00: every 12 [place] HFA) 110 00 (twelve) Medical mcg/actuati hours. Branch on inhaler Rinse mouth after each use. levalbutero 2020-09 Yes [id number] .63mg Inhale [facility] l 0.63 mg/3 1-09 0.63 mg 3 ity of mL 00:00: (three) [place] nebulizer 00 times Medical solution daily as Branch needed for Wheezing or Shortness of Breath. clotrimazol 2020-09 Yes [id number] Apply to [facility] e-betametha 1-09 area(s) 2 ity of sone cream 00:00: (two) [place] 00 times Medical daily. Branch cyclobenzap 2020-09 Yes [id number] TAKE 1 [facility] rine 5 mg 1-09 TABLET BY ity o f tablet 00:00: MOUTH [place] 00 EVERY 8 Medical HOURS Branch NEEDED econazole 2020-09 Yes [id number] Apply to [facility] nitrate 1 % 1-09 area(s) 2 ity of cream 00:00: (two) [place] 00 times Medical daily. Branch albuterol 2020-09 Yes [id number] 2{puff} Inhale 2 [facility] (PROAIR 1-09 Puffs ity of HFA) 90 00:00: every 6 [place] mcg/actuati 00 (six) Medical on inhaler hours as Branc h needed for Wheezing or Shortness of Breath. triamcinolo 2020-09 Yes [id number] Apply to [facility] ne 0.025 % 1-09 area(s) 3 ity of ointment 00:00: (three) [place] 00 times Medical daily. For Branch itching cyanocobala 2020-09 Yes [id number] 1000ug 1 mL by [facility] min 1,000 1-09 Intramuscu ity of mcg/mL 00:00: lar route [place] injection 00 every 2 Medical (two) Branch weeks. levothyroxi 2020-09 Yes [id number] 50ug Take 1 [facility] ne 50 mcg 1-09 tablet by ity o f tablet 00:00: mouth [place] 00 every Medical morning. Branch fluticasone 2020-09 Yes [id number] 2{puff} Inhale 2 [facility] propionate 1-09 Puffs ity of (FLOVENT 00:00: every 12 [place] HFA) 110 00 (twelve) Medical mcg/actuati hours. Branch on inhaler Rinse mouth after each use. levalbutero 2020-09 Yes [id number] .63mg Inhale [facility] l 0.63 mg/3 1-09 0.63 mg 3 ity of mL 00:00: (three) [place] nebulizer 00 times Medical solution daily as Branch needed for Wheezing or Shortness of Breath. clotrimazol 2020-09 Yes [id number] Apply to [facility] e-betametha -09 area(s) 2 ity of sone cream 00:00: (two) [place] 00 times Medical daily. Branch cyclobenzap 2020-09 Yes [id number] TAKE 1 [facility] rine 5 mg -09 TABLET BY ity o f tablet 00:00: MOUTH [place] 00 EVERY 8 Medical HOURS Branch NEEDED econazole 2020-09 Yes [id number] Apply to [facility] nitrate 1 % 09 area(s) 2 ity of cream 00:00: (two) [place] 00 times Medical daily. Branch albuterol 2020-09 Yes [id number] 2{puff} Inhale 2 [facility] (PROAIR 1-09 Puffs ity of HFA) 90 00:00: every 6 [place] mcg/actuati 00 (six) Medical on inhaler hours as Branc h needed for Wheezing or Shortness of Breath. triamcinolo 2020-09 Yes [id number] Apply to [facility] ne 0.025 % -09 area(s) 3 ity of ointment 00:00: (three) [place] 00 times Medical daily. For Branch itching cyanocobala 2020-09 Yes [id number] 1000ug 1 mL by [facility] min 1,000 1-09 Intramuscu ity of mcg/mL 00:00: lar route [place] injection 00 every 2 Medical (two) Branch weeks. levothyroxi 2020-09 Yes [id number] 50ug Take 1 [facility] ne 50 mcg 1-09 tablet by ity o f tablet 00:00: mouth [place] 00 every Medical morning. Branch fluticasone 2020-09 Yes [id number] 2{puff} Inhale 2 [facility] propionate 1-09 Puffs ity of (FLOVENT 00:00: every 12 [place] HFA) 110 00 (twelve) Medical mcg/actuati hours. Branch on inhaler Rinse mouth after each use. levalbutero 2020-09 Yes [id number] .63mg Inhale [facility] l 0.63 mg/3 1-09 0.63 mg 3 ity of mL 00:00: (three) [place] nebulizer 00 times Medical solution daily as Branch needed for Wheezing or Shortness of Breath. clotrimazol 2020-09 Yes [id number] Apply to [facility] e-betametha -09 area(s) 2 ity of sone cream 00:00: (two) [place] 00 times Medical daily. Branch cyclobenzap 2020-09 Yes [id number] TAKE 1 [facility] rine 5 mg 1-09 TABLET BY ity o f tablet 00:00: MOUTH [place] 00 EVERY 8 Medical HOURS Branch NEEDED econazole 2020-09 Yes [id number] Apply to [facility] nitrate 1 % -09 area(s) 2 ity of cream 00:00: (two) [place] 00 times Medical daily. Branch albuterol 2020-09 Yes [id number] 2{puff} Inhale 2 [facility] (PROAIR 1-09 Puffs ity of HFA) 90 00:00: every 6 [place] mcg/actuati 00 (six) Medical on inhaler hours as Branc h needed for Wheezing or Shortness of Breath. triamcinolo 2020-09 Yes [id number] Apply to [facility] ne 0.025 % -09 area(s) 3 ity of ointment 00:00: (three) [place] 00 times Medical daily. For Branch itching rosuvastati 2020-09 Yes [id number] 10mg Take 1 [facility] n 10 mg 1-09 tablet by ity of tablet 00:00: mouth at [place] 00 bedtime. Medical Branch cyanocobala 2020-09 Yes [id number] 1000ug 1 mL by [facility] min 1,000 1-09 Intramuscu ity of mcg/mL 00:00: lar route [place] injection 00 every 2 Medical (two) Branch weeks. levothyroxi 2020-09 Yes [id number] 50ug Take 1 [facility] ne 50 mcg 1-09 tablet by ity o f tablet 00:00: mouth [place] 00 every Medical morning. Branch fluticasone 2020-09 Yes [id number] 2{puff} Inhale 2 [facility] propionate 1-09 Puffs ity of (FLOVENT 00:00: every 12 [place] HFA) 110 00 (twelve) Medical mcg/actuati hours. Branch on inhaler Rinse mouth after each use. levalbutero 2020-09 Yes [id number] .63mg Inhale [facility] l 0.63 mg/3 1-09 0.63 mg 3 ity of mL 00:00: (three) [place] nebulizer 00 times Medical solution daily as Branch needed for Wheezing or Shortness of Breath. losartan 50 2020-09 Yes [id number] 50mg Take 1 [facility] mg tablet 1-09 tablet by ity o f 00:00: mouth 2 [place] 00 (two) Medical times Branch daily. clotrimazol 2020-09 Yes [id number] Apply to [facility] e-betametha -09 area(s) 2 ity of sone cream 00:00: (two) [place] 00 times Medical daily. Branch cyclobenzap 2020-09 Yes [id number] TAKE 1 [facility] rine 5 mg 1-09 TABLET BY ity o f tablet 00:00: MOUTH [place] 00 EVERY 8 Medical HOURS Branch NEEDED econazole 2020-09 Yes [id number] Apply to [facility] nitrate 1 % 09 area(s) 2 ity of cream 00:00: (two) [place] 00 times Medical daily. Branch albuterol 2020-09 Yes [id number] 2{puff} Inhale 2 [facility] (PROAIR 1-09 Puffs ity of HFA) 90 00:00: every 6 [place] mcg/actuati 00 (six) Medical on inhaler hours as Branc h needed for Wheezing or Shortness of Breath. triamcinolo 2020-09 Yes [id number] Apply to [facility] ne 0.025 % -09 area(s) 3 ity of ointment 00:00: (three) [place] 00 times Medical daily. For Branch itching diltiazem 2020-09 Yes [id number] 120mg Take 1 [facility] n[facility] (CARTIA XT) 1-09 capsule by it y of 120 mg 24 00:00: mouth 2 [place] hr capsule 00 (two) Medical times Branch daily. rosuvastati 2020-09 Yes [id number] 10mg Take 1 [facility] n 10 mg 1-09 tablet by ity of tablet 00:00: mouth at [place] 00 bedtime. Medical Branch cyanocobala 2020-09 Yes [id number] 1000ug 1 mL by [facility] min 1,000 1-09 Intramuscu ity of mcg/mL 00:00: lar route [place] injection 00 every 2 Medical (two) Branch weeks. levothyroxi 2020-09 Yes [id number] 50ug Take 1 [facility] ne 50 mcg 1-09 tablet by ity o f tablet 00:00: mouth [place] 00 every Medical morning. Branch fluticasone 2020-09 Yes [id number] 2{puff} Inhale 2 [facility] propionate 1-09 Puffs ity of (FLOVENT 00:00: every 12 [place] HFA) 110 00 (twelve) Medical mcg/actuati hours. Branch on inhaler Rinse mouth after each use. levalbutero 2020-09 Yes [id number] .63mg Inhale [facility] l 0.63 mg/3 1-09 0.63 mg 3 ity of mL 00:00: (three) [place] nebulizer 00 times Medical solution daily as Branch needed for Wheezing or Shortness of Breath. losartan 50 2020-09 Yes [id number] 50mg Take 1 [facility] mg tablet -09 tablet by ity o f 00:00: mouth 2 [place] 00 (two) Medical times Branch daily. clotrimazol 2020-09 Yes [id number] Apply to [facility] e-betametha 10-04 area(s) 2 ity of sone cream 00:00: (two) [place] 00 times Medical daily. Branch cyclobenzap 2020-09 Yes [id number] TAKE 1 [facility] rine 5 mg 1-09 TABLET BY ity o f tablet 00:00: MOUTH [place] 00 EVERY 8 Medical HOURS Branch NEEDED econazole 2020-09 Yes [id number] Apply to [facility] nitrate 1 % 09 area(s) 2 ity of cream 00:00: (two) [place] 00 times Medical daily. Branch albuterol 2020-09 Yes [id number] 2{puff} Inhale 2 [facility] (PROAIR 1-09 Puffs ity of HFA) 90 00:00: every 6 [place] mcg/actuati 00 (six) Medical on inhaler hours as Branc h needed for Wheezing or Shortness of Breath. triamcinolo 2020-09 Yes [id number] Apply to [facility] ne 0.025 % -09 area(s) 3 ity of ointment 00:00: (three) [place] 00 times Medical daily. For Branch itching diltiazem 2020-09 Yes [id number] 120mg Take 1 [facility] n[facility] (CARTIA XT) -09 capsule by it y of 120 mg 24 00:00: mouth 2 [place] hr capsule 00 (two) Medical times Branch daily. cyanocobala 2020-09 Yes [id number] 1000ug 1 mL by [facility] min 1,000 -09 Intramuscu ity of mcg/mL 00:00: lar route [place] injection 00 every 2 Medical (two) Branch weeks. levothyroxi 2020-09 Yes [id number] 50ug Take 1 [facility] ne 50 mcg -09 tablet by ity o f tablet 00:00: mouth [place] 00 every Medical morning. Branch fluticasone 2020-09 Yes [id number] 2{puff} Inhale 2 [facility] propionate -09 Puffs ity of (FLOVENT 00:00: every 12 [place] HFA) 110 00 (twelve) Medical mcg/actuati hours. Branch on inhaler Rinse mouth after each use. levalbutero 2020-09 Yes [id number] .63mg Inhale [facility] l 0.63 mg/3 1-09 0.63 mg 3 ity of mL 00:00: (three) [place] nebulizer 00 times Medical solution daily as Branch needed for Wheezing or Shortness of Breath. losartan 50 2020-09 Yes [id number] 50mg Take 1 [facility] mg tablet -09 tablet by ity o f 00:00: mouth 2 [place] 00 (two) Medical times Branch daily. clotrimazol 2020-09 Yes [id number] Apply to [facility] e-betametha 09 area(s) 2 ity of sone cream 00:00: (two) [place] 00 times Medical daily. Branch cyclobenzap 2020-09 Yes [id number] TAKE 1 [facility] rine 5 mg 1-09 TABLET BY ity o f tablet 00:00: MOUTH [place] 00 EVERY 8 Medical HOURS Branch NEEDED econazole 2020-09 Yes [id number] Apply to [facility] nitrate 1 % 09 area(s) 2 ity of cream 00:00: (two) [place] 00 times Medical daily. Branch albuterol 2020-09 Yes [id number] 2{puff} Inhale 2 [facility] (PROAIR 1-09 Puffs ity of HFA) 90 00:00: every 6 [place] mcg/actuati 00 (six) Medical on inhaler hours as Branc h needed for Wheezing or Shortness of Breath. triamcinolo 2020-09 Yes [id number] Apply to [facility] ne 0.025 % 10-04 area(s) 3 ity of ointment 00:00: (three) [place] 00 times Medical daily. For Branch itching diltiazem 2020-09 Yes [id number] 120mg Take 1 [facility] n[facility] (CARTIA XT) 10-04 capsule by it y of 120 mg 24 00:00: mouth 2 [place] hr capsule 00 (two) Medical times Branch daily. cyanocobala 2020-09 Yes [id number] 1000ug 1 mL by [facility] min 1,000 09 Intramuscu ity of mcg/mL 00:00: lar route [place] injection 00 every 2 Medical (two) Branch weeks. levothyroxi 2020-09 Yes [id number] 50ug Take 1 [facility] ne 50 mcg -09 tablet by ity o f tablet 00:00: mouth [place] 00 every Medical morning. Branch fluticasone 2020-09 Yes [id number] 2{puff} Inhale 2 [facility] propionate 1-09 Puffs ity of (FLOVENT 00:00: every 12 [place] HFA) 110 00 (twelve) Medical mcg/actuati hours. Branch on inhaler Rinse mouth after each use. levalbutero 2020-09 Yes [id number] .63mg Inhale [facility] l 0.63 mg/3 1-09 0.63 mg 3 ity of mL 00:00: (three) [place] nebulizer 00 times Medical solution daily as Branch needed for Wheezing or Shortness of Breath. losartan 50 2020-09 Yes [id number] 50mg Take 1 [facility] mg tablet -09 tablet by ity o f 00:00: mouth 2 [place] 00 (two) Medical times Branch daily. clotrimazol 2020-09 Yes [id number] Apply to [facility] e-betametha 10-04 area(s) 2 ity of sone cream 00:00: (two) [place] 00 times Medical daily. Branch cyclobenzap 2020-09 Yes [id number] TAKE 1 [facility] rine 5 mg 10-04 TABLET BY ity o f tablet 00:00: MOUTH [place] 00 EVERY 8 Medical HOURS Branch NEEDED econazole 2020-09 Yes [id number] Apply to [facility] nitrate 1 % 10-04 area(s) 2 ity of cream 00:00: (two) [place] 00 times Medical daily. Branch albuterol 2020-09 Yes [id number] 2{puff} Inhale 2 [facility] (PROAIR 10-04 Puffs ity of HFA) 90 00:00: every 6 [place] mcg/actuati 00 (six) Medical on inhaler hours as Branc h needed for Wheezing or Shortness of Breath. triamcinolo 2020-09 Yes [id number] Apply to [facility] ne 0.025 % 10-04 area(s) 3 ity of ointment 00:00: (three) [place] 00 times Medical daily. For Branch itching diltiazem 2020-09 Yes [id number] 120mg Take 1 [facility] n[facility] (CARTIA XT) 10-04 capsule by it y of 120 mg 24 00:00: mouth 2 [place] hr capsule 00 (two) Medical times Branch daily. cyanocobala 2020-09 Yes [id number] 1000ug 1 mL by [facility] min 1,000 10-04 Intramuscu ity of mcg/mL 00:00: lar route [place] injection 00 every 2 Medical (two) Branch weeks. losartan 50 2020-09- No [id number] 50mg Take 1 [facility] mg tablet 10-04 tablet by ity of 00:00: 00:00 mouth 2 [place] 00 :00 (two) Medical times Branch daily. diltiazem 2020-09- No [id number] 120mg Take 1 [facility] (CARTIA XT) 10-04 07-20 capsule by i ty of 120 mg 24 00:00: 00:00 mouth 2 [place] capsule 00 :00 (two) Medical times Branch daily. rosuvastati 2020-09- No [id number] 10mg Take 1 [facility] n 10 mg 10-04 tablet by ity of tablet 00:00: 00:00 mouth at [place] 00 :00 bedtime. Medical Branch rosuvastati 2020-2021- No [id number] 10mg Take 1 [facility] n 10 mg 10-04 06-08 tablet by ity of tablet 00:00: 00:00 mouth at [place] 00 :00 bedtime. Medical Branch proMETHazin 2019- Yes TAKE 1 [facility] ers [...] [place] 00 Medical Branch FERROUS 2018-0 Yes [id number] TAKE ONE [facility] vers SULFATE 325 8-13 TABLET BY ity of mg (65 mg 00:00: MOUTH [place] iron) 00 THREE Medical tablet TIMES Branch DAILY WITH MEALS FERROUS Yes [id number] TAKE ONE [facility] vers SULFATE 325 8-13 TABLET BY ity of mg (65 mg 00:00: MOUTH [place] iron) 00 THREE Medical tablet TIMES Branch DAILY WITH MEALS FERROUS Yes [id number] TAKE ONE [facility] vers SULFATE 325 8-13 TABLET BY ity of mg (65 mg 00:00: MOUTH [place] iron) 00 THREE Medical tablet TIMES Branch DAILY WITH MEALS FERROUS Yes [id number] TAKE ONE [facility] vers SULFATE 325 8-13 TABLET BY ity of mg (65 mg 00:00: MOUTH [place] iron) 00 THREE Medical tablet TIMES Branch DAILY WITH MEALS FERROUS Yes [id number] TAKE ONE [facility] vers SULFATE 325 8-13 TABLET BY ity of mg (65 mg 00:00: MOUTH [place] iron) 00 THREE Medical tablet TIMES Branch DAILY WITH MEALS FERROUS Yes [id number] TAKE ONE [facility] vers SULFATE 325 8-13 TABLET BY ity of mg (65 mg 00:00: MOUTH [place] iron) 00 THREE Medical tablet TIMES Branch DAILY WITH MEALS FERROUS Yes [id number] TAKE ONE [facility] vers SULFATE 325 8-13 TABLET BY ity of mg (65 mg 00:00: MOUTH [place] iron) 00 THREE Medical tablet TIMES Branch DAILY WITH MEALS FERROUS Yes [id number] TAKE ONE [facility] vers SULFATE 325 8-13 TABLET BY ity of mg (65 mg 00:00: MOUTH [place] iron) 00 THREE Medical tablet TIMES Branch DAILY WITH MEALS FERROUS Yes [id number] TAKE ONE [facility] vers SULFATE 325 8-13 TABLET BY ity of mg (65 mg 00:00: MOUTH [place] iron) 00 THREE Medical tablet TIMES Branch DAILY WITH MEALS FERROUS Yes [id number] TAKE ONE [facility] vers SULFATE 325 8-13 TABLET BY ity of mg (65 mg 00:00: MOUTH [place] iron) 00 THREE Medical tablet TIMES Branch DAILY WITH MEALS FERROUS Yes [id number] TAKE ONE [facility] vers SULFATE 325 8-13 TABLET BY ity of mg (65 mg 00:00: MOUTH [place] iron) 00 THREE Medical tablet TIMES Branch DAILY WITH MEALS FERROUS Yes [id number] TAKE ONE [facility] vers SULFATE 325 8-13 TABLET BY ity of mg (65 mg 00:00: MOUTH [place] iron) 00 THREE Medical tablet TIMES Branch DAILY WITH MEALS FERROUS Yes [id number] TAKE ONE [facility] vers SULFATE 325 8-13 TABLET BY ity of mg (65 mg 00:00: MOUTH [place] iron) 00 THREE Medical tablet TIMES Branch DAILY WITH MEALS FERROUS Yes [id number] TAKE ONE [facility] vers SULFATE 325 8-13 TABLET BY ity of mg (65 mg 00:00: MOUTH [place] iron) 00 THREE Medical tablet TIMES Branch DAILY WITH MEALS FERROUS Yes [id number] TAKE ONE [facility] vers SULFATE 325 8-13 TABLET BY ity of mg (65 mg 00:00: MOUTH [place] iron) 00 THREE Medical tablet TIMES Branch DAILY WITH MEALS FERROUS Yes [id number] TAKE ONE [facility] vers SULFATE 325 8-13 TABLET BY ity of mg (65 mg 00:00: MOUTH [place] iron) 00 THREE Medical tablet TIMES Branch DAILY WITH MEALS FERROUS Yes [id number] TAKE ONE [facility] vers SULFATE 325 8-13 TABLET BY ity of mg (65 mg 00:00: MOUTH [place] iron) 00 THREE Medical tablet TIMES Branch DAILY WITH MEALS FERROUS Yes [id number] TAKE ONE [facility] vers SULFATE 325 8-13 TABLET BY ity of mg (65 mg 00:00: MOUTH [place] iron) 00 THREE Medical tablet TIMES Branch DAILY WITH MEALS FERROUS Yes [id number] TAKE ONE [facility] vers SULFATE 325 8-13 TABLET BY ity of mg (65 mg 00:00: MOUTH [place] iron) 00 THREE Medical tablet TIMES Branch DAILY WITH MEALS FERROUS Yes [id number] TAKE ONE [facility] vers SULFATE 325 8-13 TABLET BY ity of mg (65 mg 00:00: MOUTH [place] iron) 00 THREE Medical tablet TIMES Branch DAILY WITH MEALS FERROUS Yes [id number] TAKE ONE [facility] vers SULFATE 325 8-13 TABLET BY ity of mg (65 mg 00:00: MOUTH [place] iron) 00 THREE Medical tablet TIMES Branch DAILY WITH MEALS FERROUS Yes [id number] TAKE ONE [facility] vers SULFATE 325 8-13 TABLET BY ity of mg (65 mg 00:00: MOUTH [place] iron) 00 THREE Medical tablet TIMES Branch DAILY WITH MEALS FERROUS Yes [id number] TAKE ONE [facility] vers SULFATE 325 8-13 TABLET BY ity of mg (65 mg 00:00: MOUTH [place] iron) 00 THREE Medical tablet TIMES Branch DAILY WITH MEALS FERROUS Yes [id number] TAKE ONE [facility] vers SULFATE 325 8-13 TABLET BY ity of mg (65 mg 00:00: MOUTH [place] iron) 00 THREE Medical tablet TIMES Branch DAILY WITH MEALS FERROUS Yes [id number] TAKE ONE [facility] vers SULFATE 325 8-13 TABLET BY ity of mg (65 mg 00:00: MOUTH [place] iron) 00 THREE Medical tablet TIMES Branch DAILY WITH MEALS coQ10, Yes [id number] 1{capsu Take 1 U nivers ubiquinol, 1-16 le} capsule by ity of 100 mg Cap 00:00: mouth [place] 00 daily. [facility] Branch coQ10, Yes [id number] 1{capsu Take 1 U nivers ubiquinol, 1-16 le} capsule by ity of 100 mg Cap 00:00: mouth [place] 00 daily. [facility] Branch coQ10, Yes [id number] 1{capsu Take 1 U nivers ubiquinol, 1-16 le} capsule by ity of 100 mg Cap 00:00: mouth [place] 00 daily. [facility] Branch coQ10, Yes [id number] 1{capsu Take 1 U nivers ubiquinol, 1-16 le} capsule by ity of 100 mg Cap 00:00: mouth [place] 00 daily. [facility] Branch coQ10, Yes [id number] 1{capsu Take 1 U nivers ubiquinol, 1-16 le} capsule by ity of 100 mg Cap 00:00: mouth [place] 00 daily. [facility] Branch coQ10, Yes [id number] 1{capsu Take 1 U nivers ubiquinol, 1-16 le} capsule by ity of 100 mg Cap 00:00: mouth [place] 00 daily. [facility] Branch coQ10, Yes [id number] 1{capsu Take 1 U nivers ubiquinol, 1-16 le} capsule by ity of 100 mg Cap 00:00: mouth [place] 00 daily. [facility] Branch coQ10, Yes [id number] 1{capsu Take 1 U nivers ubiquinol, 1-16 le} capsule by ity of 100 mg Cap 00:00: mouth [place] 00 daily. [facility] coQ10, Yes [id number] 1{capsu Take 1 U nivers ubiquinol, 1-16 le} capsule by ity of 100 mg Cap 00:00: mouth [place] 00 daily. [facility] Branch coQ10, Yes [id number] 1{capsu Take 1 U nivers ubiquinol, 1-16 le} capsule by ity of 100 mg Cap 00:00: mouth [place] 00 daily. Medical Branch coQ10, Yes [id number] 1{capsu Take 1 U nivers ubiquinol, 1-16 le} capsule by ity of 100 mg Cap 00:00: mouth [place] 00 daily. Medical Branch coQ10, Yes [id number] 1{capsu Take 1 U nivers ubiquinol, 1-16 le} capsule by ity of 100 mg Cap 00:00: mouth [place] 00 daily. Medical Branch coQ10, Yes [id number] 1{capsu Take 1 U nivers ubiquinol, 1-16 le} capsule by ity of 100 mg Cap 00:00: mouth [place] 00 daily. Medical Branch coQ10, Yes [id number] 1{capsu Take 1 U nivers ubiquinol, 1-16 le} capsule by ity of 100 mg Cap 00:00: mouth [place] 00 daily. Medical Branch coQ10, Yes [id number] 1{capsu Take 1 U nivers ubiquinol, 1-16 le} capsule by ity of 100 mg Cap 00:00: mouth [place] 00 daily. Medical Branch coQ10, Yes [id number] 1{capsu Take 1 U nivers ubiquinol, 1-16 le} capsule by ity of 100 mg Cap 00:00: mouth [place] 00 daily. Medical Branch coQ10, Yes [id number] 1{capsu Take 1 U nivers ubiquinol, 1-16 le} capsule by ity of 100 mg Cap 00:00: mouth [place] 00 daily. Medical Branch coQ10, Yes [id number] 1{capsu Take 1 U nivers ubiquinol, 1-16 le} capsule by ity of 100 mg Cap 00:00: mouth [place] 00 daily. Medical Branch coQ10, Yes [id number] 1{capsu Take 1 U nivers ubiquinol, 1-16 le} capsule by ity of 100 mg Cap 00:00: mouth [place] 00 daily. Medical Branch coQ10, Yes [id number] 1{capsu Take 1 U nivers ubiquinol, 1-16 le} capsule by ity of 100 mg Cap 00:00: mouth [place] 00 daily. Medical Branch coQ10, Yes [id number] 1{capsu Take 1 U nivers ubiquinol, 1-16 le} capsule by ity of 100 mg Cap 00:00: mouth [place] 00 daily. Medical Branch coQ10, Yes [id number] 1{capsu Take 1 U nivers ubiquinol, 1-16 le} capsule by ity of 100 mg Cap 00:00: mouth [place] 00 daily. Medical Branch coQ10, Yes [id number] 1{capsu Take 1 U nivers ubiquinol, 1-16 le} capsule by ity of 100 mg Cap 00:00: mouth [place] 00 daily. Medical Branch coQ10, Yes [id number] 1{capsu Take 1 U nivers ubiquinol, 1-16 le} capsule by ity of 100 mg Cap 00:00: mouth [place] 00 daily. Medical Branch coQ10, Yes [id number] 1{capsu Take 1 U nivers ubiquinol, 1-16 le} capsule by ity of 100 mg Cap 00:00: mouth [place] 00 daily. Medical Branch loratadine Yes [id number] 10mg Take 1 [facility] 10 mg 1-23 tablet by ity of tablet 00:00: mouth [place] 00 daily. [facility] loratadine Yes [id number] 10mg Take 1 [facility] 10 mg [facility]-23 tablet by [facility] of tablet 00:00: mouth [place] 00 daily. [facility] loratadine Yes [id number] 10mg Take 1 [facility] 10 mg 1-23 tablet by [facility] of tablet 00:00: mouth [place] 00 daily. [facility] loratadine Yes [id number] 10mg Take 1 [facility] 10 mg 1-23 tablet by [facility] of tablet 00:00: mouth [place] 00 daily. [facility] loratadine Yes [id number] 10mg Take 1 [facility] 10 mg 1-23 tablet by [facility] of tablet 00:00: mouth [place] 00 daily. [facility] loratadine 2021- No [id number] 10mg Take 1 [facility] 10 mg 1-23 06-13 tablet by [facility]y of tablet 00:00: 00:00 mouth [place] 00 :00 daily. [facility] Immunizations Ordered Immunization Filled Immunization Date Status Commen ts Source Name Name [facility] (hep a/hep b) 2022-02-24 Completed [facility] versity [...] b) 2022-02-24 Completed [facility] of 00:00:00 [facility] (hep a/hep b) 2022-02-24 Completed [facility] vers[facility] of 00:00:00 [facility] (hep a/hep b) 2022-02-24 Completed [facility] versity of 00:00:00 [facility] Twin[facility] (hep a/hep b) 2022-02-24 Completed [facility] versity of 00:00:00 [facility] (hep a/hep b) 2022-02-24 Completed [facility] vers[facility] of 00:00:00 [facility] (hep a/hep b) 2022-02-24 Completed [facility] versity of 00:00:00 [facility] (hep a/hep b) 2022-02-24 Completed [facility] vers[facility] of 00:00:00 [facility] (hep a/hep b) 2022-02-24 Completed [facility] vers[facility] of 00:00:00 [place] [facility] (hep a/hep b) 2022-02-24 Completed [facility] vers[facility] of 00:00:00 [place] [facility] (hep a/hep b) 2022-02-24 Completed [facility] vers[facility] of 00:00:00 [place] [facility] (hep a/hep b) 2022-02-24 Completed [facility] of 00:00:00 [place] [facility] (hep a/hep b) 2022-02-24 Completed [facility] vers[facility] of 00:00:00 [facility] (hep a/hep b) 2022-02-24 [...] b) 2022-02-24 Completed [facility] vers[facility] of 00:00:00 [facility] (hep a/hep b) 2022-02-24 Completed [facility] vers[facility] of 00:00:00 [facility] (hep a/hep b) 2022-01-14 Completed [facility] vers[facility] of 00:00:00 [facility] (hep a/hep b) 2022-01-14 Completed [facility] vers[facility] of 00:00:00 [facility] (hep a/hep b) 2022-01-14 Completed [facility] vers[facility] of 00:00:00 [facility] (hep a/hep b) 2022-01-14 Completed [facility] vers[facility] of 00:00:00 [facility] (hep a/hep b) 2022-01-14 Completed [...] b) 2022-01-14 Completed [facility] vers[facility] of 00:00:00 [facility] (hep a/hep b) 2022-01-14 Completed [facility] vers[facility] of 00:00:00 [facility] (hep a/hep b) 2022-01-14 Completed [facility] vers[facility] of 00:00:00 [facility] (hep a/hep b) 2022-01-14 Completed [facility] vers[facility] of 00:00:00 [facility] (hep a/hep b) 2022-01-14 Completed [facility] versity of 00:00:00 [facility] (hep a/hep b) 2022-01-14 Completed [facility] versity of 00:00:00 [facility] (hep a/hep b) 2022-01-14 Completed [facility] versity of 00:00:00 [facility] Twinrix (hep a/hep b) 2022-01-14 Completed [facility] versity of 00:00:00 [facility] Twinrix (hep a/hep b) 2022-01-14 Completed [facility] versity of 00:00:00 [facility] Twin[facility] (hep a/hep b) 2022-01-14 Completed [facility] versity of 00:00:00 [facility] Twin[facility] (hep a/hep b) 2022-01-14 Completed [facility] versity of 00:00:00 [facility] Twinrix (hep a/hep b) 2022-01-14 Completed [facility] versity of 00:00:00 [facility] Twin[facility] (hep a/hep b) 2022-01-14 Completed [facility] versity of 00:00:00 [facility] (hep a/hep b) 2022-01-14 Completed [facility] versity of 00:00:00 [facility] (hep a/hep b) 2022-01-14 Completed [facility] versity of 00:00:00 [facility] SARS-COV-2 COVID-19 2021-07-23 Completed Unive rsity of PFIZER VACCINE 00:00:00 [facility] SARS-COV-2 COVID-19 2021-07-23 Completed Unive rsity of PFIZER VACCINE 00:00:00 [facility] SARS-COV-2 COVID-19 2021-07-23 Completed [facility]ive rsity of PFIZER VACCINE 00:00:00 [facility] SARS-COV-2 COVID-19 2021-07-23 Completed Unive rsity of PFIZER VACCINE 00:00:00 [facility] SARS-COV-2 COVID-19 2021-07-23 Completed [facility] rsity of PFIZER VACCINE 00:00:00 [facility] SARS-COV-2 COVID-19 2021-07-23 Completed [facility]ive rsity of PFIZER VACCINE 00:00:00 [facility] SARS-COV-2 COVID-19 2021-07-23 Completed [facility] rsity of PFIZER VACCINE 00:00:00 [facility] SARS-COV-2 COVID-19 2021-07-23 Completed [facility] rsity of PFIZER VACCINE 00:00:00 [facility] SARS-COV-2 COVID-19 2021-07-23 Completed [facility] rsity of PFIZER VACCINE 00:00:00 [facility] SARS-COV-2 COVID-19 2021-07-23 Completed [facility]ive rsity of PFIZER VACCINE 00:00:00 [facility] SARS-COV-2 COVID-19 2021-07-23 Completed [facility] rsity of PFIZER VACCINE 00:00:00 [facility] SARS-COV-2 COVID-19 2021-07-23 Completed [facility] rsity of PFIZER VACCINE 00:00:00 [facility] SARS-COV-2 COVID-19 2021-07-23 Completed [facility]ive rsity of PFIZER VACCINE 00:00:00 [facility] SARS-COV-2 COVID-19 2021-07-23 Completed [facility]ive rsity of PFIZER VACCINE 00:00:00 [facility] SARS-COV-2 COVID-19 2021-07-23 Completed [facility] rsity of PFIZER VACCINE 00:00:00 [facility] SARS-COV-2 COVID-19 2021-07-23 Completed [facility] rsity of PFIZER VACCINE 00:00:00 [facility] SARS-COV-2 COVID-19 2021-07-23 Completed [facility] rsity of PFIZER VACCINE 00:00:00 [facility] SARS-COV-2 COVID-19 2021-07-23 Completed Unive rsity of PFIZER VACCINE 00:00:00 [facility] SARS-COV-2 COVID-19 2021-07-23 Completed Unive rsity of PFIZER VACCINE 00:00:00 [facility] SARS-COV-2 COVID-19 2021-07-23 Completed Unive rsity of PFIZER VACCINE 00:00:00 [facility] SARS-COV-2 COVID-19 2021-07-23 Completed Unive rsity of PFIZER VACCINE 00:00:00 [facility] SARS-COV-2 COVID-19 2021-07-23 Completed [facility]ive rsity of PFIZER VACCINE 00:00:00 [facility] SARS-COV-2 COVID-19 2021-07-23 Completed Unive rsity of PFIZER VACCINE 00:00:00 [facility] SARS-COV-2 COVID-19 2021-07-23 Completed [facility] rsity of PFIZER VACCINE 00:00:00 [facility] SARS-COV-2 COVID-19 2021-07-23 Completed [facility]ive rsity of PFIZER VACCINE 00:00:00 [facility] Influenza Virus 2021-05-27 Completed Universit y of Vaccine (3+ yrs) 00:00:00 [facility] Influenza Virus 2021-05-27 Completed [facility]it y of Vaccine (3+ yrs) 00:00:00 [facility] Influenza Virus 2021-05-27 Completed [facility]it y of Vaccine (3+ yrs) 00:00:00 [facility] Influenza Virus 2021-05-27 Completed [facility]it y of Vaccine (3+ yrs) 00:00:00 [facility] Influenza Virus 2021-05-27 Completed [facility] y of Vaccine (3+ yrs) 00:00:00 [facility] Influenza Virus 2021-05-27 Completed [facility]it y of Vaccine (3+ yrs) 00:00:00 [facility] Influenza Virus 2021-05-27 Completed [facility]it y of Vaccine (3+ yrs) 00:00:00 [facility] Influenza Virus 2021-05-27 Completed [facility]it y of Vaccine (3+ yrs) 00:00:00 [facility] Influenza Virus 2021-05-27 Completed [facility]it y of Vaccine (3+ yrs) 00:00:00 [facility] Influenza Virus 2021-05-27 Completed [facility]it y of Vaccine (3+ yrs) 00:00:00 [facility] Influenza Virus 2021-05-27 Completed Universit y of Vaccine (3+ yrs) 00:00:00 [facility] Influenza Virus 2021-05-27 Completed [facility]it y of Vaccine (3+ yrs) 00:00:00 [facility] Influenza Virus 2021-05-27 Completed [facility]it y of Vaccine (3+ yrs) 00:00:00 [facility] Influenza Virus 2021-05-27 Completed [facility]it y of Vaccine (3+ yrs) 00:00:00 [facility] Influenza Virus 2021-05-27 Completed [facility] y of Vaccine (3+ yrs) 00:00:00 [facility] Influenza Virus 2021-05-27 Completed [facility] y of Vaccine (3+ yrs) 00:00:00 [facility] Influenza Virus 2021-05-27 Completed [facility] y of Vaccine (3+ yrs) 00:00:00 [facility] Influenza Virus 2021-05-27 Completed [facility]it y of Vaccine (3+ yrs) 00:00:00 [facility] Influenza Virus 2021-05-27 Completed [facility] y of Vaccine (3+ yrs) 00:00:00 [facility] Influenza Virus 2021-05-27 Completed [facility] y of Vaccine (3+ yrs) 00:00:00 [facility] Influenza Virus 2021-05-27 Completed [facility] y of Vaccine (3+ yrs) 00:00:00 [facility] Influenza Virus 2021-05-27 Completed [facility] y of Vaccine (3+ yrs) 00:00:00 [facility] Influenza Virus 2021-05-27 Completed [facility] y of Vaccine (3+ yrs) 00:00:00 [facility] Influenza Virus 2021-05-27 Completed [facility] y of Vaccine (3+ yrs) 00:00:00 [facility] Influenza Virus 2021-05-27 Completed [facility] y of Vaccine (3+ yrs) 00:00:00 [facility] SARS-COV-2 COVID-19 2020-12-13 Completed Unive rsity of PFIZER VACCINE 00:00:00 [facility] SARS-COV-2 COVID-19 2020-12-13 Completed Unive rsity of PFIZER VACCINE 00:00:00 [facility] SARS-COV-2 COVID-19 2020-12-13 Completed Unive rsity of PFIZER VACCINE 00:00:00 [facility] SARS-COV-2 COVID-19 2020-12-13 Completed Unive rsity of PFIZER VACCINE 00:00:00 [facility] SARS-COV-2 COVID-19 2020-12-13 Completed Unive rsity of PFIZER VACCINE 00:00:00 [facility] SARS-COV-2 COVID-19 2020-12-13 Completed Unive rsity of PFIZER VACCINE 00:00:00 [facility] SARS-COV-2 COVID-19 2020-12-13 Completed Unive rsity of PFIZER VACCINE 00:00:00 [facility] SARS-COV-2 COVID-19 2020-12-13 Completed Unive rsity of PFIZER VACCINE 00:00:00 [facility] SARS-COV-2 COVID-19 2020-12-13 Completed Unive rsity of PFIZER VACCINE 00:00:00 [facility] SARS-COV-2 COVID-19 2020-12-13 Completed Unive rsity of PFIZER VACCINE 00:00:00 [facility] SARS-COV-2 COVID-19 2020-12-13 Completed Unive rsity of PFIZER VACCINE 00:00:00 [facility] SARS-COV-2 COVID-19 2020-12-13 Completed Unive rsity of PFIZER VACCINE 00:00:00 [facility] SARS-COV-2 COVID-19 2020-12-13 Completed [facility]ive rsity of PFIZER VACCINE 00:00:00 [facility] SARS-COV-2 COVID-19 2020-12-13 Completed Unive rsity of PFIZER VACCINE 00:00:00 [facility] SARS-COV-2 COVID-19 2020-12-13 Completed Unive rsity of PFIZER VACCINE 00:00:00 [facility] SARS-COV-2 COVID-19 2020-12-13 Completed Unive rsity of PFIZER VACCINE 00:00:00 [facility] SARS-COV-2 COVID-19 2020-12-13 Completed Unive rsity of PFIZER VACCINE 00:00:00 [facility] SARS-COV-2 COVID-19 2020-12-13 Completed Unive rsity of PFIZER VACCINE 00:00:00 [facility] SARS-COV-2 COVID-19 2020-12-13 Completed Unive rsity of PFIZER VACCINE 00:00:00 [facility] SARS-COV-2 COVID-19 2020-12-13 Completed Unive rsity of PFIZER VACCINE 00:00:00 [facility] SARS-COV-2 COVID-19 2020-12-13 Completed Unive rsity of PFIZER VACCINE 00:00:00 [facility] SARS-COV-2 COVID-19 2020-12-13 Completed Unive rsity of PFIZER VACCINE 00:00:00 [facility] SARS-COV-2 COVID-19 2020-12-13 Completed Unive rsity of PFIZER VACCINE 00:00:00 [facility] SARS-COV-2 COVID-19 2020-12-13 Completed Unive rsity of PFIZER VACCINE 00:00:00 [facility] SARS-COV-2 COVID-19 2020-12-13 Completed Unive rsity of PFIZER VACCINE 00:00:00 [facility] SARS-COV-2 COVID-19 2020-11-22 Completed Unive rsity of PFIZER VACCINE 00:00:00 [facility] SARS-COV-2 COVID-19 2020-11-22 Completed Unive rsity of PFIZER VACCINE 00:00:00 [facility] SARS-COV-2 COVID-19 2020-11-22 Completed Unive rsity of PFIZER VACCINE 00:00:00 [facility] SARS-COV-2 COVID-19 2020-11-22 Completed Unive rsity of PFIZER VACCINE 00:00:00 [facility] SARS-COV-2 COVID-19 2020-11-22 Completed Unive rsity of PFIZER VACCINE 00:00:00 [facility] SARS-COV-2 COVID-19 2020-11-22 Completed Unive rsity of PFIZER VACCINE 00:00:00 [facility] SARS-COV-2 COVID-19 2020-11-22 Completed Unive rsity of PFIZER VACCINE 00:00:00 [facility] SARS-COV-2 COVID-19 2020-11-22 Completed Unive rsity of PFIZER VACCINE 00:00:00 [facility] SARS-COV-2 COVID-19 2020-11-22 Completed Unive rsity of PFIZER VACCINE 00:00:00 [facility] SARS-COV-2 COVID-19 2020-11-22 Completed Unive rsity of PFIZER VACCINE 00:00:00 [facility] SARS-COV-2 COVID-19 2020-11-22 Completed Unive rsity of PFIZER VACCINE 00:00:00 [facility] SARS-COV-2 COVID-19 2020-11-22 Completed Unive rsity of PFIZER VACCINE 00:00:00 [facility] SARS-COV-2 COVID-19 2020-11-22 Completed [facility]ive rsity of PFIZER VACCINE 00:00:00 [facility] SARS-COV-2 COVID-19 2020-11-22 Completed Unive rsity of PFIZER VACCINE 00:00:00 [facility] SARS-COV-2 COVID-19 2020-11-22 Completed Unive rsity of PFIZER VACCINE 00:00:00 [facility] SARS-COV-2 COVID-19 2020-11-22 Completed Unive rsity of PFIZER VACCINE 00:00:00 [facility] SARS-COV-2 COVID-19 2020-11-22 Completed Unive rsity of PFIZER VACCINE 00:00:00 [facility] SARS-COV-2 COVID-19 2020-11-22 Completed Unive rsity of PFIZER VACCINE 00:00:00 [facility] SARS-COV-2 COVID-19 2020-11-22 Completed Unive rsity of PFIZER VACCINE 00:00:00 [facility] SARS-COV-2 COVID-19 2020-11-22 Completed Unive rsity of PFIZER VACCINE 00:00:00 [facility] SARS-COV-2 COVID-19 2020-11-22 Completed [facility]ive rsity of PFIZER VACCINE 00:00:00 [facility] SARS-COV-2 COVID-19 2020-11-22 Completed Unive rsity of PFIZER VACCINE 00:00:00 [facility] SARS-COV-2 COVID-19 2020-11-22 Completed Unive rsity of PFIZER VACCINE 00:00:00 [facility] SARS-COV-2 COVID-19 2020-11-22 Completed Unive rsity of PFIZER VACCINE 00:00:00 [facility] SARS-COV-2 COVID-19 2020-11-22 Completed Unive rsity of PFIZER VACCINE 00:00:00 [facility] Influenza Virus 2020-05-27 Completed Universit y of [...] VACCINE 2019-08-10 Completed Uni versity of 00:00:00 [facility] TDAP 2019-08-10 Completed [facility] of 00:00:00 [facility] Pneumococcal 2019-08-10 Completed University o f Polysaccharide, 00:00:00 [place] [facility] PPSV23 (PNEUMOVAX) Branch TDAP (ADACEL) VACCINE 2019-08-10 Completed Uni versity of 00:00:00 [facility] TDAP 2019-08-10 Completed [facility] of 00:00:00 [facility] Pneumococcal 2019-08-10 Completed [facility] o f Polysaccharide, 00:00:00 [place] [facility] PPSV23 (PNEUMOVAX) Branch TDAP (ADACEL) VACCINE 2019-08-10 Completed Uni versity of 00:00:00 [facility] TDAP 2019-08-10 Completed [facility] of 00:00:00 [facility] Pneumococcal 2019-08-10 Completed [facility] o f Polysaccharide, 00:00:00 [place] [facility] PPSV23 (PNEUMOVAX) Branch TDAP (ADACEL) VACCINE 2019-08-10 Completed Uni versity of 00:00:00 [facility] TDAP 2019-08-10 Completed [facility] of 00:00:00 [facility] Pneumococcal 2019-08-10 Completed University o f Polysaccharide, 00:00:00 [place] [facility] PPSV23 (PNEUMOVAX) Branch TDAP (ADACEL) VACCINE 2019-08-10 Completed Uni versity of 00:00:00 [facility] TDAP 2019-08-10 Completed [facility] of 00:00:00 [facility] Pneumococcal 2019-08-10 Completed University o f Polysaccharide, 00:00:00 [place] [facility] PPSV23 (PNEUMOVAX) Branch TDAP (ADACEL) VACCINE 2019-08-10 Completed Uni versity of 00:00:00 [facility] TDAP 2019-08-10 Completed [facility] of 00:00:00 [facility] Pneumococcal 2019-08-10 Completed [facility] o f Polysaccharide, 00:00:00 [place] [facility] PPSV23 (PNEUMOVAX) Branch TDAP (ADACEL) VACCINE 2019-08-10 Completed Uni versity of 00:00:00 [facility] TDAP 2019-08-10 Completed [facility] of 00:00:00 [facility] Pneumococcal 2019-08-10 Completed [facility] o f Polysaccharide, 00:00:00 [place] [facility] PPSV23 (PNEUMOVAX) Branch TDAP (ADACEL) VACCINE 2019-08-10 Completed Uni versity of 00:00:00 [facility] TDAP 2019-08-10 Completed [facility] of 00:00:00 [facility] Pneumococcal 2019-08-10 Completed [facility] o f Polysaccharide, 00:00:00 [place] [facility] PPSV23 (PNEUMOVAX) Branch TDAP (ADACEL) VACCINE 2019-08-10 Completed Uni versity of 00:00:00 [facility] TDAP 2019-08-10 Completed [facility] of 00:00:00 [facility] Pneumococcal 2019-08-10 Completed University o f Polysaccharide, 00:00:00 [place] [facility] PPSV23 (PNEUMOVAX) Branch TDAP (ADACEL) VACCINE 2019-08-10 Completed Uni versity of 00:00:00 [facility] TDAP 2019-08-10 Completed [facility] of 00:00:00 [facility] Pneumococcal 2019-08-10 Completed University o f Polysaccharide, 00:00:00 [place] [facility] PPSV23 (PNEUMOVAX) Branch TDAP (ADACEL) VACCINE 2019-08-10 Completed Uni versity of 00:00:00 [facility] TDAP 2019-08-10 Completed [facility] of 00:00:00 [facility] Pneumococcal 2019-08-10 Completed [facility] o f Polysaccharide, 00:00:00 [place] [facility] PPSV23 (PNEUMOVAX) Branch TDAP (ADACEL) VACCINE 2019-08-10 Completed Uni versity of 00:00:00 [facility] TDAP 2019-08-10 Completed [facility] of 00:00:00 [facility] Pneumococcal 2019-08-10 Completed [facility] o f Polysaccharide, 00:00:00 [place] [facility] PPSV23 (PNEUMOVAX) Branch TDAP (ADACEL) VACCINE 2019-08-10 Completed Uni versity of 00:00:00 [facility] TDAP 2019-08-10 Completed [facility] of 00:00:00 [facility] Pneumococcal 2019-08-10 Completed [facility] o f Polysaccharide, 00:00:00 [place] [facility] PPSV23 (PNEUMOVAX) Branch TDAP (ADACEL) VACCINE 2019-08-10 Completed Uni versity of 00:00:00 [facility] TDAP 2019-08-10 Completed [facility] of 00:00:00 [facility] Pneumococcal 2019-08-10 Completed University o f Polysaccharide, 00:00:00 [place] [facility] PPSV23 (PNEUMOVAX) Branch TDAP (ADACEL) VACCINE 2019-08-10 Completed Uni versity of 00:00:00 [facility] TDAP 2019-08-10 Completed [facility] of 00:00:00 [facility] Pneumococcal 2019-08-10 Completed [facility] o f Polysaccharide, 00:00:00 [place] [facility] PPSV23 (PNEUMOVAX) Branch TDAP (ADACEL) VACCINE 2019-08-10 Completed Uni versity of 00:00:00 [facility] TDAP 2019-08-10 Completed [facility] of 00:00:00 [facility] Pneumococcal 2019-08-10 Completed [facility] o f Polysaccharide, 00:00:00 [place] [facility] PPSV23 (PNEUMOVAX) Branch TDAP (ADACEL) VACCINE 2019-08-10 Completed Uni versity of 00:00:00 [facility] TDAP 2019-08-10 Completed [facility] of 00:00:00 [facility] Pneumococcal 2019-08-10 Completed [facility] o f Polysaccharide, 00:00:00 [place] [facility] PPSV23 (PNEUMOVAX) Branch TDAP (ADACEL) VACCINE 2019-08-10 Completed Uni versity of 00:00:00 [facility] TDAP 2019-08-10 Completed [facility] of 00:00:00 [facility] Pneumococcal 2019-08-10 Completed [facility] o f Polysaccharide, 00:00:00 [place] [facility] PPSV23 (PNEUMOVAX) Branch TDAP (ADACEL) VACCINE 2019-08-10 Completed Uni versity of 00:00:00 [facility] TDAP 2019-08-10 Completed [facility] of 00:00:00 [facility] Pneumococcal 2019-08-10 Completed [facility] o f Polysaccharide, 00:00:00 [place] [facility] PPSV23 (PNEUMOVAX) Branch TDAP (ADACEL) VACCINE 2019-08-10 Completed Uni versity of 00:00:00 [facility] TDAP 2019-08-10 Completed [facility] of 00:00:00 [facility] Pneumococcal 2019-08-10 Completed [facility] o f Polysaccharide, 00:00:00 [place] [facility] PPSV23 (PNEUMOVAX) Branch TDAP (ADACEL) VACCINE 2019-08-10 Completed Uni versity of 00:00:00 [facility] TDAP 2019-08-10 Completed [facility] of 00:00:00 [facility] Pneumococcal 2019-08-10 Completed [facility] o f Polysaccharide, 00:00:00 [place] [facility] PPSV23 (PNEUMOVAX) Branch TDAP (ADACEL) VACCINE 2019-08-10 Completed Uni versity of 00:00:00 [facility] TDAP 2019-08-10 Completed [facility] of 00:00:00 [facility] Pneumococcal 2019-08-10 Completed [facility] o f Polysaccharide, 00:00:00 [place] [facility] PPSV23 (PNEUMOVAX) Branch TDAP (ADACEL) VACCINE 2019-08-10 Completed Uni versity of 00:00:00 [facility] TDAP 2019-08-10 Completed [facility] of 00:00:00 [facility] Pneumococcal 2019-08-10 Completed [facility] o f Polysaccharide, 00:00:00 [place] [facility] PPSV23 (PNEUMOVAX) Branch TDAP (ADACEL) VACCINE 2019-08-10 Completed Uni versity of 00:00:00 [facility] TDAP 2019-08-10 Completed [facility] of 00:00:00 [facility] Pneumococcal 2019-08-10 Completed [facility] o f Polysaccharide, 00:00:00 [place] [facility] PPSV23 (PNEUMOVAX) Branch TDAP (ADACEL) VACCINE 2019-08-10 Completed Uni versity of 00:00:00 [facility] TDAP 2019-08-10 Completed University of 00:00:00 [facility] Influenza Virus 2019-07-04 Completed Universit y of Vaccine 00:00:00 [facility] Influenza Virus 2019-07-04 Completed Universit y of Vaccine Recomb Quad 00:00:00 [facility], Preserv and ABX Branc h Free 18-64 YRS Influenza Virus 2019-07-04 Completed Universit y of Vaccine 00:00:00 [facility] Influenza Virus 2019-07-04 Completed Universit y of Vaccine Recomb Quad 00:00:00 [facility], Preserv and ABX Branc h Free 18-64 YRS Influenza Virus 2019-07-04 Completed Universit y of Vaccine 00:00:00 [facility] Influenza Virus 2019-07-04 Completed Universit y of Vaccine Recomb Quad 00:00:00 [facility], Preserv and ABX Branc h Free 18-64 YRS Influenza Virus 2019-07-04 Completed Universit y of Vaccine 00:00:00 [facility] Influenza Virus 2019-07-04 Completed Universit y of Vaccine Recomb Quad 00:00:00 [facility], Preserv and ABX Branc h Free 18-64 YRS Influenza Virus 2019-07-04 Completed Universit y of Vaccine 00:00:00 [facility] Influenza Virus 2019-07-04 Completed Universit y of Vaccine Recomb Quad 00:00:00 [facility], Preserv and ABX Branc h Free 18-64 YRS Influenza Virus 2019-07-04 Completed Universit y of Vaccine 00:00:00 [facility] Influenza Virus 2019-07-04 Completed Universit y of Vaccine Recomb Quad 00:00:00 [facility], Preserv and ABX Branc h Free 18-64 YRS Influenza Virus 2019-07-04 Completed Universit y of Vaccine 00:00:00 [facility] Influenza Virus 2019-07-04 Completed Universit y of Vaccine Recomb Quad 00:00:00 [facility], Preserv and ABX Branc h Free 18-64 YRS Influenza Virus 2019-07-04 Completed Universit y of Vaccine 00:00:00 [facility] Influenza Virus 2019-07-04 Completed Universit y of Vaccine Recomb Quad 00:00:00 [facility], Preserv and ABX Branc h Free 18-64 YRS Influenza Virus 2019-07-04 Completed Universit y of Vaccine 00:00:00 [facility] Influenza Virus 2019-07-04 Completed Universit y of Vaccine Recomb Quad 00:00:00 [facility], Preserv and ABX Branc h Free 18-64 YRS Influenza Virus 2019-07-04 Completed Universit y of Vaccine 00:00:00 [facility] Influenza Virus 2019-07-04 Completed Universit y of Vaccine Recomb Quad 00:00:00 [facility], Preserv and ABX Branc h Free 18-64 YRS Influenza Virus 2019-07-04 Completed Universit y of Vaccine 00:00:00 [facility] Influenza Virus 2019-07-04 Completed Universit y of Vaccine Recomb Quad 00:00:00 [facility], Preserv and ABX Branc h Free 18-64 YRS Influenza Virus 2019-07-04 Completed Universit y of Vaccine 00:00:00 [facility] Influenza Virus 2019-07-04 Completed Universit y of Vaccine Recomb Quad 00:00:00 [facility], Preserv and ABX Branc h Free 18-64 YRS Influenza Virus 2019-07-04 Completed Universit y of Vaccine 00:00:00 [facility] Influenza Virus 2019-07-04 Completed Universit y of Vaccine Recomb Quad 00:00:00 [facility], Preserv and ABX Branc h Free 18-64 YRS Influenza Virus 2019-07-04 Completed Universit y of Vaccine 00:00:00 [facility] Influenza Virus 2019-07-04 Completed Universit y of Vaccine Recomb Quad 00:00:00 [facility], Preserv and ABX Branc h Free 18-64 YRS Influenza Virus 2019-07-04 Completed Universit y of Vaccine 00:00:00 [facility] Influenza Virus 2019-07-04 Completed Universit y of Vaccine Recomb Quad 00:00:00 [facility], Preserv and ABX Branc h Free 18-64 YRS Influenza Virus 2019-07-04 Completed Universit y of Vaccine 00:00:00 [facility] Influenza Virus 2019-07-04 Completed Universit y of Vaccine Recomb Quad 00:00:00 [facility], Preserv and ABX Branc h Free 18-64 YRS Influenza Virus 2019-07-04 Completed Universit y of Vaccine 00:00:00 [facility] Influenza Virus 2019-07-04 Completed Universit y of Vaccine Recomb Quad 00:00:00 [facility], Preserv and ABX Branc h Free 18-64 YRS Influenza Virus 2019-07-04 Completed Universit y of Vaccine 00:00:00 [facility] Influenza Virus 2019-07-04 Completed Universit y of Vaccine Recomb Quad 00:00:00 [facility], Preserv and ABX Branc h Free 18-64 YRS Influenza Virus 2019-07-04 Completed Universit y of Vaccine 00:00:00 [facility] Influenza Virus 2019-07-04 Completed Universit y of Vaccine Recomb Quad 00:00:00 [facility], Preserv and ABX Branc h Free 18-64 YRS Influenza Virus 2019-07-04 Completed Universit y of Vaccine 00:00:00 [facility] Influenza Virus 2019-07-04 Completed Universit y of Vaccine Recomb Quad 00:00:00 [facility], Preserv and ABX Branc h Free 18-64 YRS Influenza Virus 2019-07-04 Completed Universit y of Vaccine 00:00:00 [facility] Influenza Virus 2019-07-04 Completed Universit y of Vaccine Recomb Quad 00:00:00 [facility], Preserv and ABX Branc h Free 18-64 YRS Influenza Virus 2019-07-04 Completed Universit y of Vaccine 00:00:00 [facility] Influenza Virus 2019-07-04 Completed Universit y of Vaccine Recomb Quad 00:00:00 [facility], Preserv and ABX Branc h Free 18-64 YRS Influenza Virus 2019-07-04 Completed Universit y of Vaccine 00:00:00 [facility] Influenza Virus 2019-07-04 Completed Universit y of Vaccine Recomb Quad 00:00:00 [facility], Preserv and ABX Branc h Free 18-64 YRS Influenza Virus 2019-07-04 Completed Universit y of Vaccine 00:00:00 [facility] Influenza Virus 2019-07-04 Completed Universit y of Vaccine Recomb Quad 00:00:00 [facility], Preserv and ABX Branc h Free 18-64 YRS Influenza Virus 2019-07-04 Completed Universit y of Vaccine 00:00:00 [facility] Influenza Virus 2019-07-04 Completed Universit y of Vaccine Recomb Quad 00:00:00 [facility], Preserv and ABX Branc h Free 18-64 YRS Influenza Virus 2018-06-30 Completed Universit y of Vaccine Quad IM 3+ 00:00:00 [facility] Influenza Virus 2018-06-30 Completed Universit y of Vaccine Quad IM 3+ 00:00:00 [facility] Influenza Virus 2018-06-30 Completed Universit y of Vaccine Quad IM 3+ 00:00:00 [facility] Influenza Virus 2018-06-30 Completed Universit y of Vaccine Quad IM 3+ 00:00:00 [facility] Influenza Virus 2018-06-30 Completed Universit y of Vaccine Quad IM 3+ 00:00:00 [facility] Influenza Virus 2018-06-30 Completed Universit y of Vaccine Quad IM 3+ 00:00:00 [facility] Influenza Virus 2018-06-30 Completed Universit y of Vaccine Quad IM 3+ 00:00:00 [facility] Influenza Virus 2018-06-30 Completed Universit y of Vaccine Quad IM 3+ 00:00:00 [facility] Influenza Virus 2018-06-30 Completed Universit y of Vaccine Quad IM 3+ 00:00:00 [facility] Influenza Virus 2018-06-30 Completed Universit y of Vaccine Quad IM 3+ 00:00:00 [facility] Influenza Virus 2018-06-30 Completed Universit y of Vaccine Quad IM 3+ 00:00:00 [facility] Influenza Virus 2018-06-30 Completed Universit y of Vaccine Quad IM 3+ 00:00:00 [facility] Influenza Virus 2018-06-30 Completed Universit y of Vaccine Quad IM 3+ 00:00:00 [facility] Influenza Virus 2018-06-30 Completed Universit y of Vaccine Quad IM 3+ 00:00:00 [facility] Influenza Virus 2018-06-30 Completed Universit y of Vaccine Quad IM 3+ 00:00:00 [facility] Influenza Virus 2018-06-30 Completed Universit y of Vaccine Quad IM 3+ 00:00:00 [facility] Influenza Virus 2018-06-30 Completed Universit y of Vaccine Quad IM 3+ 00:00:00 [facility] Influenza Virus 2018-06-30 Completed Universit y of Vaccine Quad IM 3+ 00:00:00 [facility] Influenza Virus 2018-06-30 Completed Universit y of Vaccine Quad IM 3+ 00:00:00 [facility] Influenza Virus 2018-06-30 Completed Universit y of Vaccine Quad IM 3+ 00:00:00 [facility] Influenza Virus 2018-06-30 Completed Universit y of Vaccine Quad IM 3+ 00:00:00 [facility] Influenza Virus 2018-06-30 Completed Universit y of Vaccine Quad IM 3+ 00:00:00 [facility] Influenza Virus 2018-06-30 Completed Universit y of Vaccine Quad IM 3+ 00:00:00 [facility] Influenza Virus 2018-06-30 Completed Universit y of Vaccine Quad IM 3+ 00:00:00 [facility] Influenza Virus 2018-06-30 Completed Universit y of Vaccine Quad IM 3+ 00:00:00 [facility] Influenza Virus 2017-06-15 Completed Universit y of Vaccine Quad ID [id number] 00:00:00 [facility] Branch Influenza Virus 2017-06-15 Completed Universit y of Vaccine Quad ID [id number] 00:00:00 [facility] as [facility] Branch Influenza Virus 2017-06-15 Completed Universit y of Vaccine Quad ID [id number] 00:00:00 [facility] Branch Influenza Virus 2017-06-15 Completed Universit y [...] Universit y of Vaccine Quad IM 00:00:00 [facility] Multi-dose 6+ MO Branch Influenza Virus 2016-08-05 Completed Universit y of Vaccine Quad IM 00:00:00 [facility] Multi-dose 6+ MO Branch Influenza Virus 2016-08-05 Completed Universit y of Vaccine Quad IM 00:00:00 [facility] Multi-dose 6+ MO Branch Influenza Virus 2016-08-05 Completed Universit y of Vaccine Quad IM 00:00:00 [facility] Multi-dose 6+ MO Branch Influenza Virus 2016-08-05 Completed Universit y of Vaccine Quad IM 00:00:00 [facility] Multi-dose 6+ MO Branch Influenza Virus 2016-08-05 Completed Universit y of Vaccine Quad IM 00:00:00 [facility] Multi-dose 6+ MO Branch Influenza Virus 2016-08-05 Completed Universit y of Vaccine Quad IM 00:00:00 [facility] Multi-dose 6+ MO Branch Influenza Virus 2016-08-05 Completed Universit y of Vaccine Quad IM 00:00:00 [facility] Multi-dose 6+ MO Branch Influenza Virus 2016-08-05 Completed Universit y of Vaccine Quad IM 00:00:00 [facility] Multi-dose 6+ MO Branch Influenza Virus 2016-08-05 Completed Universit y of Vaccine Quad IM 00:00:00 [facility] Multi-dose 6+ MO Branch Influenza Virus 2016-08-05 Completed Universit y of Vaccine Quad IM 00:00:00 [facility] Multi-dose 6+ MO Branch Influenza Virus 2016-08-05 Completed Universit y of Vaccine Quad IM 00:00:00 [facility] Multi-dose 6+ MO Branch Pneumococcal 13 2016-03-07 Completed Universit y of Conjugate, PCV13 00:00:00 [facility] dical (Prevnar 13) Branch Meningococcal B, OMV 2016-03-07 Completed Univ ersity of 00:00:00 [facility] Pneumococcal 13 2016-03-07 Completed Universit y of Conjugate, PCV13 00:00:00 [facility] dical (Prevnar 13) Branch Meningococcal B, OMV 2016-03-07 Completed Univ ersity of 00:00:00 [facility] Pneumococcal 13 2016-03-07 Completed Universit y of Conjugate, PCV13 00:00:00 [facility] (Prevnar 13) Branch Meningococcal B, [facility] 2016-03-07 Completed Univ ersity of 00:00:00 [facility] Branch Pneumococcal 13 2016-03-07 Completed Universit y of Conjugate, PCV13 00:00:00 [facility] (Prevnar 13) Branch Meningococcal B, [facility] 2016-03-07 Completed Univ ersity of 00:00:00 [facility] Branch Pneumococcal 13 2016-03-07 Completed Universit y of Conjugate, PCV13 00:00:00 [facility] (Prevnar 13) Branch Meningococcal B, [facility] 2016-03-07 Completed Univ ersity of 00:00:00 [facility] Pneumococcal 13 2016-03-07 Completed Universit y of Conjugate, PCV13 00:00:00 [facility] dical (Prevnar 13) Branch Meningococcal B, [facility] 2016-03-07 Completed Univ ersity of 00:00:00 [facility] Pneumococcal 13 2016-03-07 Completed Universit y of Conjugate, PCV13 00:00:00 [facility] dical (Prevnar 13) Branch Meningococcal B, [facility] 2016-03-07 Completed Univ ersity of 00:00:00 [facility] Pneumococcal 13 2016-03-07 Completed Universit y of Conjugate, PCV13 00:00:00 [facility] (Prevnar 13) Branch Meningococcal B, [facility] 2016-03-07 Completed Univ ersity of 00:00:00 [facility] Pneumococcal 13 2016-03-07 Completed Universit y of Conjugate, PCV13 00:00:00 [facility] dical (Prevnar 13) Branch Meningococcal B, [facility] 2016-03-07 Completed Univ ersity of 00:00:00 [facility] Pneumococcal 13 2016-03-07 Completed Universit y of Conjugate, PCV13 00:00:00 [facility] (Prevnar 13) Branch Meningococcal B, [facility] 2016-03-07 Completed Univ ersity of 00:00:00 [facility] Pneumococcal 13 2016-03-07 Completed Universit y of Conjugate, PCV13 00:00:00 [facility] dical (Prevnar 13) Branch Meningococcal B, [facility] 2016-03-07 Completed Univ ersity of 00:00:00 [facility] Pneumococcal 13 2016-03-07 Completed Universit y of Conjugate, PCV13 00:00:00 [facility] (Prevnar 13) Branch Meningococcal B, [facility] 2016-03-07 Completed Univ ersity of 00:00:00 [facility] Branch Pneumococcal 13 2016-03-07 Completed Universit y of Conjugate, PCV13 00:00:00 [facility] (Prevnar 13) Branch Meningococcal B, [facility] 2016-03-07 Completed Univ ersity of 00:00:00 [facility] Branch Pneumococcal 13 2016-03-07 Completed Universit y of Conjugate, PCV13 00:00:00 [facility] (Prevnar 13) Branch Meningococcal B, [facility] 2016-03-07 Completed Univ ersity of 00:00:00 [facility] Pneumococcal 13 2016-03-07 Completed Universit y of Conjugate, PCV13 00:00:00 [facility] (Prevnar 13) Branch Meningococcal B, [facility] 2016-03-07 Completed Univ ersity of 00:00:00 [facility] Pneumococcal 13 2016-03-07 Completed Universit y of Conjugate, PCV13 00:00:00 [facility] (Prevnar 13) Branch Meningococcal B, [facility] 2016-03-07 Completed Univ ersity of 00:00:00 [facility] Pneumococcal 13 2016-03-07 Completed Universit y of Conjugate, PCV13 00:00:00 [facility] (Prevnar 13) Branch Meningococcal B, [facility] 2016-03-07 Completed Univ ersity of 00:00:00 [facility] Pneumococcal 13 2016-03-07 Completed Universit y of Conjugate, PCV13 00:00:00 [facility] (Prevnar 13) Branch Meningococcal B, [facility] 2016-03-07 Completed Univ ersity of 00:00:00 [facility] Pneumococcal 13 2016-03-07 Completed Universit y of Conjugate, PCV13 00:00:00 [facility] (Prevnar 13) Branch Meningococcal B, [facility] 2016-03-07 Completed Univ ersity of 00:00:00 [facility] Pneumococcal 13 2016-03-07 Completed Universit y of Conjugate, PCV13 00:00:00 [facility] (Prevnar 13) Branch Meningococcal B, [facility] 2016-03-07 Completed Univ ersity of 00:00:00 [facility] Pneumococcal 13 2016-03-07 Completed Universit y of Conjugate, PCV13 00:00:00 [facility] (Prevnar 13) Branch Meningococcal B, OMV 2016-03-07 Completed Univ ersity of 00:00:00 [facility] Branch Pneumococcal 13 2016-03-07 Completed Universit y of Conjugate, PCV13 00:00:00 [facility] dical (Prevnar 13) Branch Meningococcal B, OMV 2016-03-07 Completed Univ ersity of 00:00:00 [facility] Branch Pneumococcal 13 2016-03-07 Completed Universit y of Conjugate, PCV13 00:00:00 [facility] dical (Prevnar 13) Branch Meningococcal B, OMV 2016-03-07 Completed Univ ersity of 00:00:00 [facility] Branch Pneumococcal 13 2016-03-07 Completed Universit y of Conjugate, PCV13 00:00:00 [facility] dical (Prevnar 13) Branch Meningococcal B, OMV 2016-03-07 Completed Univ ersity of 00:00:00 [facility] Branch Pneumococcal 13 2016-03-07 Completed Universit y of Conjugate, PCV13 00:00:00 [facility] dical (Prevnar 13) Branch Meningococcal B, OMV 2016-03-07 Completed Univ ersity of 00:00:00 [facility] Branch Heamophilus Influenza 2015-11-13 Completed Uni versity of B 00:00:00 [facility] Branch Heamophilus Influenza 2015-11-13 Completed Uni versity of B 00:00:00 [facility] Branch Heamophilus Influenza 2015-11-13 Completed Uni versity of B 00:00:00 [facility] Branch Heamophilus Influenza 2015-11-13 Completed Uni versity of B 00:00:00 [facility] Branch Heamophilus Influenza 2015-11-13 Completed Uni versity of B 00:00:00 [facility] Heamophilus Influenza 2015-11-13 Completed Uni versity of B 00:00:00 [facility] Branch Heamophilus Influenza 2015-11-13 Completed Uni versity of B 00:00:00 [facility] Branch Heamophilus Influenza 2015-11-13 Completed Uni versity of B 00:00:00 [facility] Branch Heamophilus Influenza 2015-11-13 Completed Uni versity of B 00:00:00 [facility] Branch Heamophilus Influenza 2015-11-13 Completed Uni versity of B 00:00:00 [facility] Branch Heamophilus Influenza 2015-11-13 Completed Uni versity of B 00:00:00 [facility] Branch Heamophilus Influenza 2015-11-13 Completed Uni versity of B 00:00:00 [facility] Branch Heamophilus Influenza 2015-11-13 Completed Uni versity of B 00:00:00 [facility] Branch Heamophilus Influenza 2015-11-13 Completed Uni versity of B 00:00:00 [facility] Branch Heamophilus Influenza 2015-11-13 Completed Uni versity of B 00:00:00 [facility] Branch Heamophilus Influenza 2015-11-13 Completed Uni versity of B 00:00:00 [facility] Branch Heamophilus Influenza 2015-11-13 Completed Uni versity of B 00:00:00 [facility] Branch Heamophilus Influenza 2015-11-13 Completed Uni versity of B 00:00:00 [facility] Branch Heamophilus Influenza 2015-11-13 Completed Uni versity of B 00:00:00 [facility] Branch Heamophilus Influenza 2015-11-13 Completed Uni versity of B 00:00:00 [facility] Branch Heamophilus Influenza 2015-11-13 Completed Uni versity of B 00:00:00 [facility] Branch Heamophilus Influenza 2015-11-13 Completed Uni versity of B 00:00:00 [facility] Branch Heamophilus Influenza 2015-11-13 Completed Uni versity of B 00:00:00 [facility] Branch Heamophilus Influenza 2015-11-13 Completed Uni versity of B 00:00:00 [facility] Heamophilus Influenza 2015-11-13 Completed Uni versity of B 00:00:00 [facility] Meningococcal 2015-11-12 Completed University of Polysaccharide 00:00:00 [facility] (groups A, C, Y and Branc h W-135) conjugate vaccine (MCV4P) Meningococcal 2015-11-12 Completed University of Polysaccharide 00:00:00 [facility] (groups A, C, Y and Branc h W-135) conjugate vaccine (MCV4P) Meningococcal 2015-11-12 Completed University of Polysaccharide 00:00:00 [facility] (groups A, C, Y and Branc h W-135) conjugate vaccine (MCV4P) Meningococcal 2015-11-12 Completed University of Polysaccharide 00:00:00 [facility] (groups A, C, Y and [...] (MCV4P) TDAP 2015-10-31 Completed University of 00:00:00 [facility] TDAP 2015-10-31 Completed University of 00:00:00 [facility] TDAP 2015-10-31 Completed University of 00:00:00 [facility] TDAP 2015-10-31 Completed University of 00:00:00 [facility] TDAP 2015-10-31 Completed University of 00:00:00 [facility] TDAP 2015-10-31 Completed University of 00:00:00 [facility] TDAP 2015-10-31 Completed University of 00:00:00 [facility] TDAP 2015-10-31 Completed University of 00:00:00 [facility] TDAP 2015-10-31 Completed University of 00:00:00 [facility] TDAP 2015-10-31 Completed University of 00:00:00 [facility] TDAP 2015-10-31 Completed University of 00:00:00 [facility] TDAP 2015-10-31 Completed University of 00:00:00 [facility] TDAP 2015-10-31 Completed University of 00:00:00 [facility] TDAP 2015-10-31 Completed University of 00:00:00 [facility] TDAP 2015-10-31 Completed University of 00:00:00 [facility] TDAP 2015-10-31 Completed University of 00:00:00 [facility] TDAP 2015-10-31 Completed University of 00:00:00 [facility] TDAP 2015-10-31 Completed University of 00:00:00 [facility] TDAP 2015-10-31 Completed University of 00:00:00 [facility] TDAP 2015-10-31 Completed University of 00:00:00 [facility] TDAP 2015-10-31 Completed University of 00:00:00 [facility] TDAP 2015-10-31 Completed University of 00:00:00 [facility] TDAP 2015-10-31 Completed University of 00:00:00 [facility] TDAP 2015-10-31 Completed University of 00:00:00 [facility] TDAP 2015-10-31 Completed University of 00:00:00 [facility] Pneumococcal 2014-04-01 Completed University o f Polysaccharide, 00:00:00 [facility] PPSV23 (PNEUMOVAX) Branch Pneumococcal 2014-04-01 Completed University o f Polysaccharide, 00:00:00 [facility] PPSV23 (PNEUMOVAX) Branch Pneumococcal 2014-04-01 [...] 2014-04-01 Completed University o f Polysaccharide, 00:00:00 [facility] PPSV23 (PNEUMOVAX) Branch Pneumococcal 2014-04-01 [...] 2014-04-01 Completed University o f Polysaccharide, 00:00:00 [facility] PPSV23 (PNEUMOVAX) Branch Vital Signs Vital Name Observation Time Observation Value Comments Source Systolic blood 2022-03-27 12:44:00 131 mm[Hg] Univer sity of pressure [facility] Diastolic blood 2022-03-27 12:44:00 83 mm[Hg] Unive rsity of [facility] Heart rate 2022-03-27 12:44:00 102 /min Universi ty [facility] Body temperature 2022-03-27 12:44:00 37.11 Melissa [facility] ersity of [facility] Respiratory rate 2022-03-27 12:44:00 18 /min Univ ersity of [facility] Body height 2022-03-27 12:44:00 157.5 cm Universi ty [facility] Body weight 2022-03-27 12:44:00 96.616 kg Universi ty [facility] BMI 2022-03-27 12:44:00 38.96 kg/m2 Universi ty [facility] Oxygen saturation in 2022-03-27 12:44:00 98 /min University of Arterial blood by [facility] Pulse oximetry Branch Systolic blood 2022-03-02 15:40:00 113 mm[Hg] Univer sity of pressure [facility] Diastolic blood 2022-03-02 15:40:00 72 mm[Hg] Unive rsity of [facility] Heart rate 2022-03-02 15:40:00 82 /min Universi ty [facility] Respiratory rate 2022-03-02 15:40:00 16 /min Univ ersity of [facility] Oxygen saturation in 2022-03-02 15:40:00 97 /min University of Arterial blood by [place] [facility] [facility] Pulse oximetry Branch Body temperature 2022-03-02 15:23:00 36.28 Melissa [facility] ersity of [facility] Body weight 2022-02-24 17:00:00 100.245 kg [facility] BMI 2022-02-24 17:00:00 40.42 kg/m2 [facility] Systolic blood 2022-03-02 15:25:00 98 mm[Hg] Univer sity of pressure [facility] Diastolic blood 2022-03-02 15:25:00 55 mm[Hg] [facility] rs[facility] of pressure [facility] Heart rate 2022-03-02 15:25:00 85 /min [facility] Respiratory rate 2022-03-02 15:25:00 18 /min [facility] Oxygen saturation in 2022-03-02 15:25:00 100 /min [facility] Arterial blood by [facility] Pulse oximetry Ball Body temperature 2022-03-02 15:23:00 36.28 Melissa [facility] Body weight 2022-02-24 17:00:00 100.245 kg [facility] BMI 2022-02-24 17:00:00 40.42 kg/m2 [facility] Procedures Procedure Date / Time Performing Source Performed Clinician POWER OF FILTER PRESS TENDER HEAD 2022-06-01 [facility]3] 05:01:00 Unassigned, No [facility] POWER OF FILTER PRESS TENDER HEAD 2022-05-13 [facility]3] 05:01:00 Unassigned, No [facility] DME/SUPPLY JUSTIFICATION 2022-05-06 [facility] ity of 05:01:00 Unassigned, No [facility] EMG/NCV 2022-04-08 Brunilda [facility] of 14:43:00 [facility] CONSENT/REFUSAL FOR DIAGNOSIS AND 2022-03-27 [facility]3] TREATMENT 12:40:53 Unassigned, No [facility] PHYSICIAN ORDERS 2022-03-19 [facility]3] 05:01:00 Unassigned, No [facility] COLONOSCOPY (ENDO) 2022-03-02 Tray Jolly [place] of 14:43:32 [facility] COLONOSCOPY (ENDO) 2022-03-02 [facility] of 14:43:32 [facility] COLONOSCOPY 2022-03-02 [facility] 14:02:00 [facility] ESOPHAGOGASTRODUODENOSCOPY 2022-03-02 Cecile Márquez [facility] ersity of 14:02:00 [facility] EGD (ENDO) 2022-03-02 Tray Jolly [place] of 13:53:24 [facility] EGD (ENDO) 2022-03-02 Tray Jolly [place] of 13:53:24 [facility] POCT GLUCOSE(AGE >30DAYS) 2022-03-02 [facility] ersity of 12:59:00 [facility] POCT GLUCOSE(AGE >30DAYS) 2022-03-02 [facility] ersity of 12:59:00 [facility] POCT GLUCOSE (AUTOMATED) 2022-03-02 Cecile Márquez [facility] sity of 12:58:00 [facility] POCT GLUCOSE (AUTOMATED) 2022-03-02 Cecile Márquez [facility] sity of 12:58:00 [facility] POCT TEST 2022-03-02 [facility] of 12:48:00 [facility] POCT TEST 2022-03-02 [facility] of 12:48:00 [facility] DAY SURGERY - ADC 2022-03-02 [facility] of 05:01:00 Unassigned, No [facility] Name Branch DME/SUPPLY JUSTIFICATION 2022-01-04 [facility] ity of 05:01:00 Unassigned, No [facility] Name Branch DME/SUPPLY JUSTIFICATION 2022-01-04 [facility] ity of 05:01:00 Unassigned, No [facility] DISCLOSURE AND CONSENT, MEDICAL 2021-12-28 [facility] of AND SURGICAL PROCEDURES 05:01:00 Unassigned, No [facility] dical Name Branch DISCLOSURE AND CONSENT, MEDICAL 2021-12-28 [facility]3] AND SURGICAL PROCEDURES 05:01:00 Unassigned, No [facility] dical Name Branch Encounters Start End Encounter Admission Attending Care Care Encounter Source Date/Time Date/Time Type Type Clinicians Facility Department ID 2022-10-18 2022-10-18 Outpatient Brock [facility] [id number] Univers 10:00:00 10:00:00 [facility]LAVA [id number] [facility]22-08-24 2022-08-24 Outpatient Brock JOLLY [facility] [id number] Univers 09:00:00 09:00:00 [facility] 2022-08-13 2022-08-13 Outpatient Brock HINTON [facility] [id number] Univers 14:00:00 14:00:00 AN [id number] [facility] 2022-08-06 2022-08-06 Outpatient R MARY JANE [facility] [id number] Univers 16:30:00 16:30:00 AN [id number] ity of [facility] 2022-06-03 2022-06-03 Outpatient R STELLA WORLEY [facility] [id number] Univers 09:30:00 09:30:00 STELLA WORLEY [id number] it y of [facility] 2022-06-03 2022-06-03 Outpatient R STELLA WORLEY [facility] [id number] Univers 09:30:00 09:30:00 STELLA WORLEY it y of [facility] 2022-06-02 2022-06-02 Refill BrunildaStella [facility] 1.2.840.114 [id number] Univers 00:00:00 00:00:00 HEALTH 350.1.13.10 [place] [id number] [address] OFFICE BUILDING 2022-06-01 2022-06-01 Orders Doctor CLAU 1.2.840.114 [id number] Univers 00:00:00 00:00:00 Only Unassigned, GRAYSON 350.1.13.10 ity of [place] [facility] 4.2.7.2.686 Emanuel as [id number] [address] 2022-06-01 2022-06-01 Susan WorleyStella [place]FRANDY 1.2.840.114 [id number] Univers 00:00:00 00:00:00 HEALTH 350.1.13.10 [place] [id number] [address] OFFICE BUILDING 2022-05-26 2022-05-26 Reffranchesca WorleyStella [place]FRANDY 1.2.840.114 [id number] Univers 00:00:00 00:00:00 HEALTH 350.1.13.10 [place] [id number] [address] OFFICE BUILDING 2022-05-18 2022-05-18 Outpatient R SANJAY SÁNCHEZ [facility] [id number] Univers 09:00:00 09:00:00 [id number] ity of [facility] 2022-05-18 2022-05-18 Outpatient R PRINCESSSANJAY [facility] [id number] Univers 09:00:00 09:00:00 ity of [facility] 2022-05-17 2022-05-17 Outpatient R [facility] [id number] Univers 09:00:00 09:00:00 [id number] ity of [facility] 2022-05-17 2022-05-17 Outpatient R [facility] [id number] Univers 09:00:00 09:00:00 TRAY ity [facility] 2022-05-13 2022-05-13 Orders Doctor CLAU 1.2.840.114 [id number] Univers 00:00:00 00:00:00 Only Unassigned, GRAYSON 350.1.13.10 ity of [place] [facility] 4.2.7.2.686 Emanuel as [id number] [address] 2022-05-13 2022-05-13 Telephone [facility] 1.2.840.114 [id number] Univers 00:00:00 00:00:00 [facility] 350.1.13.10 it y of [place] 4.2.7.2.686 Emanuel as JOLLY?BLEA [id number] Dc samirroshan [address] MEDICAL OFFICE BUILDING 2022-05-10 2022-05-10 Outpatient R [facility] [id number] Univers 16:15:00 16:15:00 TRAY [id number] ity of [facility] 2022-05-10 2022-05-10 Outpatient R [facility] [id number] Univers 16:15:00 16:15:00 TRAY phillipsy [facility] 2022-05-10 2022-05-10 Outpatient R STELLA WORLEY [facility] [id number] Univers 00:00:00 00:00:00 STELLA WORLEY it y of [facility] 2022-05-06 2022-05-06 Telephone Stella Worley [facility] 1.2.840.114 [id number] Univers 00:00:00 00:00:00 HEALTH 350.1.13.10 [place] [id number] [facility] [address] OFFICE BUILDING 2022-05-06 2022-05-06 Orders Doctor CLAU 1.2.840.114 [id number] Univers 00:00:00 00:00:00 Only Unassigned, GRAYSON 350.1.13.10 ity of [place] [facility] 4.2.7.2.686 Emanuel as [id number] [place] [address] Branch 2022-04-29 2022-04-29 Outpatient Brock [facility] [id number] Univers 14:00:00 14:00:00 CLAU [id number] ity [facility] 2022-04-29 2022-04-29 Outpatient Brock [facility] [id number] Univers 14:00:00 14:00:00 CLAU jay [facility] 2022-04-14 2022-04-14 Outpatient VIK TAVERA [facility] [id number] Univers 09:00:00 09:00:00 ity [facility] 2022-04-12 2022-04-12 [facility] 1.2.840.114 [id number] Univers 00:00:00 00:00:00 Ricardo GREGORIO 350.1.13.10 ity of [place] [id number] Dc dical [facility] [address] [facility] 2022-04-09 2022-04-09 Outpatient Brock [facility] [id number] Univers 11:00:00 11:00:00 ISAC [id number] ity [facility] 2022-04-09 2022-04-09 Outpatient Brock [facility] [id number] Univers 11:00:00 11:00:00 [facility] 2022-04-08 2022-04-08 [facility] 1.2.840.114 [id number] Univers 08:30:00 23:59:00 Encounter [facility] 350.1.13.10 it[place] [id number] [facility] [address] OFFICE BUILDING 2022-04-08 2022-04-08 Outpatient R AGUSTINA [facility] [id number] Univers 08:30:00 23:59:00 SHERI phillipsy o f [facility] 2022-04-08 2022-04-08 Telephone Stella Worley [facility] 1.2.840.114 [id number] Univers 00:00:00 00:00:00 HEALTH 350.1.13.10 [place] [id number] [facility] [address] OFFICE BUILDING 2022-04-02 2022-04-02 Outpatient R MARY JANE [facility] [id number] Univers 09:30:00 09:30:00 AN flores [facility] 2022-03-31 2022-03-31 Telephone [facility] 1.2.840.114 [id number] Univers 00:00:00 00:00:00 [facility] 350.1.13.10 it y of [place] 4.2.7.2.686 Emanuel as JOLLY?BLEA [phone] Dc gabi CHAIREZ 044 [facility] OFFICE [facility] 2022-03-27 2022-03-27 Emergency [facility] [id number] [id number] Univers 07:48:00 08:22:00 Destiny JG 350.1.13.10 i ty [facility] [place].2.[place] [id number] [facility] [address] 2022-03-27 2022-03-27 Emergency X [facility] ERT [id number] Univers 07:48:00 08:22:00 DESTINY flores [facility] 2022-03-27 2022-03-27 Orders Doctor OLGUIN 1.2.840.114 [id number] Univers 00:00:00 00:00:00 Only Unassigned, GRAYSON 350.1.13.10 ity of [place] [facility] 4.2.7.2.686 Emanuel as [id number] [facility] [address] 2022-03-24 2022-03-24 [facility] 1.2.840.114 [id number] Univers 00:00:00 00:00:00 Tray HEALTH 350.1.13.10 it y of [place] 4.2.7.2.686 Emanuel as JOLLY?BLEA [id number] [address] MEDICAL OFFICE BUILDING 2022-03-23 2022-03-23 Outpatient STELLA DAVILA [facility] [id number] Univers 13:00:00 13:00:00 STELLA WORLEY [id number] it y of [facility] 2022-03-19 2022-03-19 Orders Doctor CLAU 1.2.840.114 [id number] Univers 00:00:00 00:00:00 Only Unassigned, GRAYSON 350.1.13.10 ity of [place] [facility] 4.2.7.2.686 Emanuel as [id number] [address] 2022-03-19 2022-03-19 Telephone [facility] 1.2.840.114 [id number] Univers 00:00:00 00:00:00 [facility] HEALTH 350.1.13.10 it y of [place] 4.2.7.2.686 Emanuel as JOLLY?BLEA [id number] [address] MEDICAL OFFICE [facility] 2022-03-17 2022-03-17 Telephone [facility] 1.2.840.114 [id number] Univers 00:00:00 00:00:00 [facility] HEALTH 350.1.13.10 it y of [place] 4.2.7.2.686 Emanuel as JOLLY?BLEA [phone] [address] MEDICAL OFFICE BUILDING 2022-03-12 2022-03-12 RefStella Hamilton [facility] 1.2.840.114 [id number] Univers 00:00:00 00:00:00 HEALTH 350.1.13.10 it [place] [id number] [facility] [address] OFFICE BUILDING 2022-03-08 2022-03-08 Telephone [facility] 1.2.840.114 [id number] Univers 00:00:00 00:00:00 Tray HEALTH 350.1.13.10 it y of [place] 4.2.7.2.686 Emanuel as JOLLY?BLEA [id number] Dc dical KNEY [address] MEDICAL OFFICE [facility] 2022-03-02 2022-03-02 Outpatient R [facility] MARCUS [id number] Univers 07:39:00 11:22:00 CECILE ity of [facility] 2022-03-02 2022-03-02 [facility] 1.2.840.114 [id number] Univers 07:39:00 11:22:00 Encounter Cecile JG 350.1.13.10 ity of [place] SURGICAL [id number] [facility] [address] 2022-03-02 2022-03-02 Surgery [facility] 1.2.468.398 [id number] Univers 09:11:00 10:25:00 Cecile GREGORIO 350.1.13.10 i ty of [place]2.[place].2.[place] SURGICAL [id number] [facility] [address] 2022-03-02 2022-03-02 Orders Doctor CLAU 1.2.840.114 [id number] Univers 00:00:00 00:00:00 Only Unassigned, GRAYSON 350.1.13.10 ity of [place] [facility] 4.2.7.2.686 Emanuel as [id number] [facility] [address] 2022-03-01 2022-03-01 Telephone [facility] 1.2.840.114 [id number] Univers 00:00:00 00:00:00 Cecile GREGORIO 350.1.13.10 i ty of [place].2.[place] [id number] Dc dical NAL 188 [facility] 2022-03-01 2022-03-01 Reffranchesca [facility] 1.2.840.114 [id number] Univers 00:00:00 00:00:00 Ricardo GREGORIO 350.1.13.10 ity of [place] [id number] Dc dical NAL 059 [facility] 2022-02-10 2022-02-10 Outpatient R NAV ANTONIO [facility] [id number] Univers 00:00:00 00:00:00 mark [facility] 2022-01-11 2022-01-11 Outpatient R MOMO [facility] [id number] Univers 14:45:00 23:59:00 ISAC [facility] 2021-12-28 2021-12-28 Outpatient R LAKESHIA [facility] [id number] Univers 09:30:00 10:07:08 CECILE [facility] 2021-11-16 2021-11-16 Outpatient R LAKESHIA [facility] [id number] Univers 09:30:00 09:30:00 CECILE jay [facility] 2021-10-22 2021-10-22 Outpatient R MOMO [facility] [id number] Univers 14:45:00 14:45:00 ISAC [facility] 2021-09-29 2021-09-29 Outpatient R FLORENCE [facility] [id number] Univers 16:14:01 23:59:00 CAPRICE [facility] 2021-07-10 2021-07-10 [facility]patient [id number] Devoted 05:13:00 05:13:00 [facility]5 [facility] 2021-05-09 2021-05-09 [facility] [id number] Devoted 11:00:00 11:00:00 0814 Medica l Group 2021-05-08 2021-05-08 Outpatient Brock HENRIQUEZ [facility] [id number] Univers 07:37:21 23:59:00 CAPRICE [facility] 2021-05-07 2021-05-07 [facility] [id number] Devoted 12:00:00 12:00:00 0812 Medica l Group 2021-02-25 2021-02-25 [facility] [id number] 00:00:00 00:00:00 Ricardo Gregorio 350.1.13.10 [place] 4.2.7.2.686 Esme [id number] nal 059 Building Results Test Description Test Time Test Comments Results Result Comments Source POCT GLUCOSE (AUTOMATED) 2022-03-02 13:11:54 Test Item Value Reference Range Interpretation Comme nts POCT GLU (test code = 3530975234) 137 mg/dL 70-110 H Lab Interpretation (test code = 91344-3) Abnormal [facility] GLUCOSE (AUTOMATED)2022-03-02 13:11:54 Test Item Value Reference Range Interpretation Comments POCT GLU (test code = 8561925903) 137 mg/dL 70-110 H Lab Interpretation (test code = Abnormal 43747-7) [facility] [id number] 12:59:00 Test Item Value Reference Range Interpretation Comments POCT Glu (age>30days) (test code = 137 mg/dL 70-110 A 3342) Lab Interpretation (test code = Abnormal 92430-3) [facility] [id number] 12:59:00 Test Item Value Reference Range Interpretation Comments POCT Glu (age>30days) (test code = 137 mg/dL 70-110 A 3342) Lab Interpretation (test code = Abnormal 63741-8) [facility] [id number] 12:48:00 Test Item Value Reference Range Interpretation Comments POCT PREG (test code = 1605) Negative On board controls acceptable with Yes C Line (test code = 3574) POCT PREG LOT # (test code = 3575) [id number] POCT PREG TEST DATE (test 2023-06-25 code = 3576) [facility] [id number] 12:48:00 Test Item Value Reference Range Interpretation Comments POCT PREG (test code = 1605) Negative On board controls acceptable with Yes C Line (test code = 3574) POCT PREG LOT # (test code = 3575) [id number] POCT PREG TEST DATE (test 2023-06-25 code = 3576) [facility]
--- NOTE | 2022-06-02 18:35 | EDPHYS ---
Physician Documentation [facility] Name: Linda Rahman Age: 46 yrs Sex: Female : 1975 Arrival Date: 06/02/2022 Time: 16:41 Bed Waiting Private MD: ED Physician Enrike Moore HPI: 06/02 17:20 This 46 yrs old Female presents to ER via Unassigned with complaints of ms3 Headache. 17:20 46-year-old female with past medical history of migraines, diabetes, neuropathy, ms3 hypertension, anemia, hypothyroidism presents for migraine that began this morning. Patient states her discomfort is a 10/10 located generally throughout her head and throbbing. Patient states this pain is similar to her previous migraines. Patient denies alleviating or inciting factors.. INTAKE RN: 17:35 LMP N/A - Post-menopause kb3 Historical: - Allergies: 17:35 Amoxicillin; kb3 17:35 Benadryl; kb3 17:35 Codeine; kb3 17:35 Demerol; kb3 17:35 Geodon; kb3 17:35 Meclizine; kb3 17:35 Tessalon Perles; kb3 - PMHx: 17:35 Anemia; Anxiety; diabetes mellitus; Hypertensive disorder; Hypothyroidism; Migraine; kb3 - PSHx: 17:35 Cholecystectomy; Ligation of fallopian tube; kb3 - Immunization history:: Adult Immunizations up to date, Client reports receiving the 2nd dose of the Covid vaccine, Last tetanus immunization: unknown. - Social history:: Smoking status: Patient denies any tobacco usage or history of. ROS: 17:20 Constitutional: Negative for fever, and chills. Neck: Negative for injury, pain, and ms3 swelling, Cardiovascular: Negative for chest pain, and palpitations. Respiratory: Negative for shortness of breath, cough, wheezing, and pleuritic chest pain, Abdomen/GI: Negative for abdominal pain, nausea, vomiting, diarrhea, and constipation, MS/Extremity: Negative for injury and deformity, Skin: Negative for injury, rash, and discoloration. 17:20 Neuro: Positive for headache. 17:20 All other systems are negative. Exam: 17:20 Constitutional: This is a well developed, well nourished patient who is awake, alert, ms3 and in no acute distress. Head/Face: Normocephalic, atraumatic. Eyes: Pupils equal round and reactive to light, extra-ocular motions intact. Lids and lashes normal. Conjunctiva and sclera are non-icteric and not injected. Periorbital areas with no swelling, redness, or edema. Neck: Trachea midline, no cervical lymphadenopathy. Supple, full range of motion without nuchal rigidity, or vertebral point tenderness. No Meningismus. Chest/axilla: Normal chest wall appearance and motion. Nontender with no deformity. Cardiovascular: Regular rate and rhythm with a normal S1 and S2. No gallops, murmurs, or rubs. Normal PMI, no JVD. No pulse deficits. Respiratory: Lungs have equal breath sounds bilaterally, clear to auscultation and percussion. No rales, rhonchi or wheezes noted. No increased work of breathing, no retractions or nasal flaring. Abdomen/GI: Soft, non-tender, with normal bowel sounds. No distension or tympany. No guarding or rebound. No evidence of tenderness throughout. Skin: Warm, dry with normal turgor. Normal color with no rashes, no lesions, and no evidence of cellulitis. MS/ Extremity: Pulses equal, no cyanosis. Neurovascular intact. Full, normal range of motion. Neuro: Awake and alert, GCS 15, oriented to person, place, time, and situation. Cranial nerves II-XII grossly intact. Motor strength 5/5 in all extremities. Sensory grossly intact. Cerebellar exam normal. Normal gait. Psych: Awake, alert, with orientation to person, place and time. Behavior, mood, and affect are within normal limits. Vital Signs: 17:32 Pulse 100; Resp 18; Temp 98.2; Pulse Ox 97% ; Weight 96.62 kg; Height 5 ft. 2 in. kb3 (157.48 cm); Pain 10/10; 17:32 Body Mass Index 38.96 (96.62 kg, 157.48 cm) kb3 MDM: 17:17 Patient medically screened. ms3 18:34 Data reviewed: vital signs, nurses notes. ED course: Patient left prior to receiving IV ms3 medications for her migraine. Patient also left prior to obtaining discharge instructions. Patient is free to return to the emergency department anytime to continue her care.. Administered Medications: 20:16 Not Given (Patient Refused): Ketorolac 10 mg IVP once iw 20:16 Not Given (Patient Refused): NS 0.9% 1000 ml IV at 1000 ml once iw 20:17 Not Given (Patient Refused): Reglan (metoCLOPramide) 10 mg IVP once; over 1 to 2 minutesiw Disposition Summary: 06/02/22 18:34 Discharge Ordered Location: Home ms3 Condition: Stable ms3 Diagnosis - Headache ms3 Forms: - Medication Reconciliation Form ms3 - Thank You Letter ms3 - Antibiotic Education ms3 - Prescription Opioid Use ms3 Signatures: Enrike Moore DO DO ms3 Annel Hernandez RN RN kb3 Marychuy Galvez RN iw
--- NOTE | 2022-06-02 18:35 | ER ---
Nurse's Notes [facility] Name: Linda Rahamn Age: 46 yrs Sex: Female : 1975 Arrival Date: 06/02/2022 Time: 16:41 Bed Waiting Private MD: Diagnosis: Headache Presentation: 06/02 17:32 Chief complaint: Patient states: Pt reports migraine since this morning and she is out kb of her sumatriptan and topamax. Pt reports associated sweating. Coronavirus screen: Vaccine status: Patient reports receiving the 2nd dose of the covid vaccine. Client denies travel out of the [place] in the last 14 days. Ebola Screen: Patient negative for fever greater than or equal to 101.5 degrees Fahrenheit, and additional compatible Ebola Virus Disease symptoms Patient denies exposure to infectious person. Patient denies travel to an Ebola-affected area in the 21 days before illness onset. Initial Sepsis Screen: Does the patient meet any 2 criteria? No. Patient's initial sepsis screen is negative. Does the patient have a suspected source of infection? No. Patient's initial sepsis screen is negative. Risk Assessment: Do you want to hurt yourself or someone else? Patient reports no desire to harm self or others. Onset of symptoms was June 02, 2022. 17:32 Method Of Arrival: Ambulatory [facility] 17:32 Acuity: HOLLEY 3 kb3 Triage Assessment: 17:35 Headache History: The patient has had previous headaches and this one is similar to kb3 previous episodes. General: Appears in no apparent distress. Behavior is calm, cooperative. Pain: Complains of pain in head Pain currently is 10 out of 10 on a pain scale. Quality of pain is described as aching, throbbing, Pain began suddenly, 4 hours ago. Also complains of no other associated symptoms. Neuro: No deficits noted. [employer]PERVIS[employer]: 17:35 LMP N/A - Post-menopause kb3 Historical: - Allergies: 17:35 Amoxicillin; kb3 17:35 Benadryl; kb3 17:35 Codeine; kb3 17:35 Demerol; kb3 17:35 Geodon; kb3 17:35 Meclizine; kb3 17:35 Tessalon Perles; kb3 - PMHx: 17:35 Anemia; Anxiety; diabetes mellitus; Hypertensive disorder; Hypothyroidism; Migraine; kb3 - PSHx: 17:35 Cholecystectomy; Ligation of fallopian tube; kb3 - Immunization history:: Adult Immunizations up to date, Client reports receiving the 2nd dose of the Covid vaccine, Last tetanus immunization: unknown. - Social history:: Smoking status: Patient denies any tobacco usage or history of. Vital Signs: 17:32 Pulse 100; Resp 18; Temp 98.2; Pulse Ox 97% ; Weight 96.62 kg; Height 5 ft. 2 in. kb3 (157.48 cm); Pain 10/10; 17:32 Body Mass Index 38.96 (96.62 kg, 157.48 cm) kb3 ED Course: 16:41 Patient arrived in ED. am2 16:48 Enrike Moore DO is Attending Physician. ms3 17:35 Triage completed. kb3 17:35 Arm band placed on right wrist. kb3 18:58 Marychuy Galvez, RN is Primary Nurse. iw Administered Medications: 20:16 Not Given (Patient Refused): Ketorolac 10 mg IVP once iw 20:16 Not Given (Patient Refused): NS 0.9% 1000 ml IV at 1000 ml once iw 20:17 Not Given (Patient Refused): Reglan (metoCLOPramide) 10 mg IVP once; over 1 to 2 minutesiw Outcome: 18:34 Discharge ordered by . ms3 18:59 Patient left the ED. iw Signatures: Marychuy Galvez, RN RN iw Adele Koo am2 Enrike Moore DO DO ms3 Annel Hernandez RN RN kb3
[2022-06-02 20:03] VITALS: TEMP 98.2; O2SAT 97
== END 2022-06-02 18:59 | disposition home or self-care (01) ==
LOC: ER 16:35
DX: R51.9 Headache, unspecified (principal); I10 Essential (primary) hypertension; Z88.1 Allergy status to other antibiotic agents; Z88.5 Allergy status to narcotic agent; Z88.8 Allergy status to other drugs, medicaments and biological substances
CPT/HCPCS: 99281

== ENCOUNTER 2022-06-12 12:18 | Inpatient (IN) | payer OTHER ==
--- OUTSIDE RECORDS SUMMARY | 2022-06-12 12:39 | XMS REPORT | Continuity of Care Document ---
:1975 Author Organization [facility] [place] [facility] t Address [address] [place] [address] Care Team Providers Name Role Phone Tray Jolly MD Primary Care Physician [phone] MIROSLAVA ELIZABETH Attending Clinician Unavailable TRAY JOLLY Attending Clinician Unavailable AN HINTON Attending Clinician Unavailable STELLA WORLEY Attending Clinician Unavailable STELLA WORLEY Attending Clinician Unavailable Tray Jolly MD Attending Clinician Nurse, Ry Carbajal Attending Clinician Unavailable Cecile Márquez MD Attending Clinician Doctor Unassigned, [place] Attending Clinician Unavailable SANJAY SÁNCHEZ Attending Clinician Unavailable CLAU AGUILAR Attending Clinician Unavailable VIK OLIVEIRA Attending Clinician Unavailable Gomez HOLLINS, Sendil K.H. Attending Clinician ISAC BARR Attending Clinician Unavailable Sheri Moreno MD Attending Clinician SHERI MORENO Attending Clinician Unavailable Destiny Oneill MD Attending Clinician DESTINY ONEILL Attending Clinician Unavailable CECILE ÁMRQUEZ Attending Clinician Unavailable NAV ANTONIO Attending Clinician Unavailable CAPRICE HENRIQUEZ Attending Clinician Unavailable Eladia Attending Clinician Unavailable STELLA WORLEY Admitting Clinician Unavailable CECILE MÁRQUEZ Admitting Clinician Unavailable Cecile Márquez MD Admitting Clinician Eladia Admitting Clinician Unavailable Payers Payer Name Policy Type Policy Number Effective Date Expiration Date S ewa [facility] DUAL [id number] 2022 COMP CHOICE PPO 00:00:[address] [facility] [place] STAR PLUS [id number] 2021 00:00:00 DEVOTED HEALTH DAYHR8 2021 (MEDICARE 00:00:00 REPLACEMENT HMO) MEDICAID [facility] [id number] 2016 2016 00:00:00 00:00:00 Problems Condition Condition [...] Added automatic ally from request for surgery [id number] Chronic Chronic Disease Active Overview: Univ ers superficia superficia 4-05 Formattin ity of l l 00:00: g of this [place] gastritis gastritis 00 note Medi cipriano without without might be Branch bleeding bleeding different from the original. Added automatic ally from request for surgery [id number] Hyperplast Hyperplast Disease Active Overview : Univers ic polyps ic polyps 4-05 Formattin i ty of of stomach of stomach 00:00: g of this [place] 00 note Medical might be Branch different from the original. Added automatic ally from request for surgery [id number] Indigestio Indigestio Disease Active 2020-09 Overview : Univers n n 2-15 Formattin ity of 00:00: g of this [place] 00 note Medical might be Branch different from the original. Added automatic ally from request for surgery [id number] Bloating Bloating Disease Active 2020-09 Overview: Un jerrod 2-15 Formattin ity of 00:00: g of this [place] 00 note Medical might be Branch different from the original. Added automatic ally from request for surgery [id number] Dental Dental Disease Active Univers caries caries [...] ity of with body with body 00:00: [facility] s mass index mass index 00 [...] Univers liver liver 3-24 ity of 00:00: [place] [facility] Hepatomega Hepatomega Disease Active U nivers ly ly 3-24 ity of 00:00: [place] [facility] Obesity Obesity Disease Active Univers (BMI (BMI 2-12 ity of 30-39.9) 30-39.9) 00:00: [place] [facility] Sinus Sinus Disease Active Univers tachycardi tachycardi 1-02 it y of a a 00:00: [place] [facility] Dyslipidem Dyslipidem Disease Active 2015-09 U nivers ia ia 1-22 ity of 00:00: [place] [facility] Vitamin Vitamin Disease Active 2015-09 Univers B12 B12 1-10 ity of deficiency deficiency [place] [facility] Branch 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 6-09 ity of 00:00: [place] [facility] Abnormal Abnormal Disease Active Unive rs uterine uterine 5-23 ity of bleeding bleeding 00:00: [place] [facility] Submucous Submucous Disease Active Uni vers leiomyoma leiomyoma 5-23 ity of of uterus of [place] 00:[place] [facility] Encounter Encounter Disease Active Uni vers for blood for blood 2-16 ity of transfusio transfusio 00:[place] [facility] History of History of Disease Active U nivers tubal tubal 2-05 ity of ligation ligation 00:00: [place] [address] Medical Branch 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 00:[place] disorder, disorder, 00 Medi cipriano in in Branch remission remission Hypothyroi Hypothyroi Disease Active U nivers d d 2-05 ity of 00:00: [place] [address] Medical Branch Essential Essential Disease Active Uni vers hypertensi hypertensi 2-05 it y of on, benign on, benign 00:00: [place] [facility] Well woman Well woman Disease Active U nivers exam exam 2-05 ity of 00:00: [place] 00 Medical Branch Chest pain Chest pain Disease Active 2015-0 U nivers 9-13 ity of 00:00: [place] 00 Medical Branch Peripheral Peripheral Disease Active U nivers neuropathy neuropathy it y of [facility] [place] [facility] 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 ity of [facility] [place] [facility] PCOS PCOS Disease Active Univers (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) [facility] Allergies, Adverse Reactions, Alerts Allergy Allergy Status Severity Reaction(s) Onset Inactive Treating Comm ents Source Name Type Date Date Clinician Milk Propensi Active Other - See sneeze Uni vers ty to comments 8-14 ity of adverse 00:00: [place] reaction Medical s Branch MILK DRUG Active Other-Cmnt Univer s INGREDI 8-14 ity of 00:00: [place] 00 Medical Branch Tomato Propensi Active Other - See Tomato Uni vers ty to comments 7 source ity of adverse 00:00: reportedl [place] reaction 00 y causes Medica l s excessive Branch sneezing. But pt still eats it. TOMATO DRUG Active Low Other-Cmnt Univer s INGREDI 7-09 ity of 00:00: [place] 00 Medical Branch Codeine Propensi Active Itching 20180 Univer s ty to 1-17 ity of [...] 00 Medical Branch Benzonat Propensi Active Swelling 20170 Tightness U nivers ate ty to 2-09 [...] High Hives 2014-0 Univers ONE HCL INGREDI - ity of 00:00: [place] 00 Medical Branch AMOXICIL DRUG Active Med Hives 2014-0 Univers FRANCA INGREDI 05-30 ity of 00:00: [place] 00 Medical Neon Social History Social Habit Start Date Stop Date Quantity Comments Source Exposure to 2022-03-29 2022-04-08 Not sure [facility] SARS-CoV-2 (event) 00:00:00 08:43:00 [facility] [place] [facility] Alcohol intake 2022-03-03 2022-03-03 0 /d University of 00:00:00 00:00:00 [facility] [place] [facility] Cigarettes smoked 2017-10-20 2017-10-20 Univers ity of current (pack per 00:00:00 00:00:00 [facility] ) - Reported Branch Cigarette 2017-10-20 2017-10-20 University of pack-years 00:00:00 00:00:00 [facility] [place] [facility] Tobacco use and 2017-10-20 2017-10-20 Smokeless Universit y of exposure 00:00:00 00:00:00 tobacco non-user [place] Me dical Branch History of tobacco 1982-10-20 2007-10-20 Cigarette Smoker University of use 00:00:00 00:00:00 [facility] [place] [facility] Sex [birth year] At [birth year] Universit y of 00:00:00 00:00:00 [facility] [place] [facility] Smoking Status Start Date Stop Date Source Ex-smoker 2017-10-20 00:00:00 2017-10-20 00:00:00 [facility] Medications Ordered Filled Start Stop Current Ordering Indication Dosage Frequency Signature Comments Components Source Medication Medication Date Date Medication? Clinician (SIG) Name Name pantoprazol Yes [id number] 40mg Take 1 Univers e 40 mg EC 9-16 tablet by ity of tablet 00:00: mouth in [place] 00 the Medical morning. Branch Simethicone Yes [id number] 125mg Take 1 Univers 125 mg 9-16 capsule by ity of 00:00: mouth [place] 00 after Medical meals and Branch at bedtime as needed for Gas (Per bowel prep). SUMAtriptan 2021-0 Yes [id number] TAKE 1 Univers 50 mg 9-06 TABLET BY ity of tablet 00:00: MOUTH [place] 00 NEEDED FOR Medical MIGRAINE Branch HEADACHE ( MAY REPEAT IN 2 HOURS ) SUMAtriptan 2021-0 Yes [id number] TAKE 1 Univers 50 mg 9-06 TABLET BY ity of tablet 00:00: MOUTH [place] 00 NEEDED FOR Medical MIGRAINE Branch HEADACHE ( MAY REPEAT IN 2 HOURS ) SUMAtriptan 2021-0 Yes [id number] TAKE 1 Univers 50 mg 9-06 TABLET BY ity of tablet 00:00: MOUTH [place] 00 NEEDED FOR Medical MIGRAINE Branch HEADACHE ( MAY REPEAT IN 2 HOURS ) SUMAtriptan 2021-0 Yes [id number] TAKE 1 Univers 50 mg 9-06 TABLET BY ity of tablet 00:00: MOUTH [place] 00 NEEDED FOR Medical MIGRAINE Branch HEADACHE ( MAY REPEAT IN 2 HOURS ) SUMAtriptan 2022-0 Yes [id number] TAKE 1 Univers 50 mg 9-06 TABLET BY ity of tablet 00:00: MOUTH [place] 00 NEEDED FOR Medical MIGRAINE Branch HEADACHE ( MAY REPEAT IN 2 HOURS ) SUMAtriptan 2-0 Yes [id number] TAKE 1 Univers 50 mg 9-06 TABLET BY ity of tablet 00:00: MOUTH [place] 00 NEEDED FOR Medical MIGRAINE Branch HEADACHE ( MAY REPEAT IN 2 HOURS ) SUMAtriptan 2-0 Yes [id number] TAKE 1 Univers 50 mg 9-06 TABLET BY ity of tablet 00:00: MOUTH [place] 00 NEEDED FOR Medical MIGRAINE Branch HEADACHE ( MAY REPEAT IN 2 HOURS ) SUMAtriptan 2-0 Yes [id number] TAKE 1 Univers 50 mg 9-06 TABLET BY ity of tablet 00:00: MOUTH [place] 00 NEEDED FOR Medical MIGRAINE Branch HEADACHE ( MAY REPEAT IN 2 HOURS ) SUMAtriptan 2-0 Yes [id number] TAKE 1 Univers 50 mg 9-06 TABLET BY ity of tablet 00:00: MOUTH [place] 00 NEEDED FOR Medical MIGRAINE Branch HEADACHE ( MAY REPEAT IN 2 HOURS ) topiramate 2-0 Yes [id number] Take 2 Univers 25 mg 9-01 tablets by ity of tablet 00:00: mouth [place] 00 twice Medical daily Branch topiramate 2022-0 Yes [id number] Take 2 Univers 25 mg 9-01 tablets by ity of tablet 00:00: mouth [place] 00 twice Medical daily Branch topiramate 2022-0 Yes [id number] Take 2 Univers 25 mg 9-01 tablets by ity of tablet 00:00: mouth [place] 00 twice Medical daily Branch topiramate 2022-0 Yes [id number] Take 2 Univers 25 mg 9-01 tablets by ity of tablet 00:00: mouth [place] 00 twice Medical daily Branch topiramate 2022-0 Yes [id number] Take 2 Univers 25 mg 9-01 tablets by ity of tablet 00:00: mouth [place] 00 twice Medical daily Branch topiramate 2022-0 Yes [id number] Take 2 Univers 25 mg 9-01 tablets by ity of tablet 00:00: mouth [place] 00 twice Medical daily Branch topiramate 2022-0 Yes [id number] Take 2 Univers 25 mg 9-01 tablets by ity of tablet 00:00: mouth [place] 00 twice Medical daily Branch topiramate 2022-0 Yes [id number] Take 2 Univers 25 mg 9-01 tablets by ity of tablet 00:00: mouth [place] 00 twice Medical daily Branch topiramate 2022-0 Yes [id number] Take 2 Univers 25 mg 9-01 tablets by ity of tablet 00:00: mouth [place] 00 twice Medical daily Branch topiramate 2022-0 Yes [id number] Take 2 Univers 25 mg 9-01 tablets by ity of tablet 00:00: mouth twice Medical daily Branch topiramate 2021-0 Yes [id number] Take 2 Univers 25 mg 9-01 tablets by ity of tablet 00:00: mouth twice Medical daily Branch topiramate 2021-0 Yes [id number] Take 2 Univers 25 mg 9-01 tablets by ity of tablet 00:00: mouth twice Medical daily Branch methocarbam 2021-0 Yes [id number] 500mg Take 1 Univers oL 500 mg 8-11 tablet by ity o f tablet 00:00: mouth (four) Medical times Branch daily as needed for Pain (scale 7-10). methocarbam 2021-0 Yes [id number] 500mg Take 1 Univers oL 500 mg 8-11 tablet by ity o f tablet 00:00: mouth (four) Medical times Branch daily as needed for Pain (scale 7-10). methocarbam 2021-0 Yes [id number] 500mg Take 1 Univers oL 500 mg 8-11 tablet by ity o f tablet 00:00: mouth (four) Medical times Branch daily as needed for Pain (scale 7-10). methocarbam 2021-0 Yes [id number] 500mg Take 1 Univers oL 500 mg 8-11 tablet by ity o f tablet 00:00: mouth (four) Medical times Branch daily as needed for Pain (scale 7-10). methocarbam 2021-0 Yes [id number] 500mg Take 1 Univers oL 500 mg 8-11 tablet by ity o f tablet 00:00: mouth (four) Medical times Branch daily as needed for Pain (scale 7-10). methocarbam 2021-0 Yes [id number] 500mg Take 1 Univers oL 500 mg 8-11 tablet by ity o f tablet 00:00: mouth (four) Medical times Branch daily as needed for Pain (scale 7-10). methocarbam 2021-0 Yes [id number] 500mg Take 1 Univers oL 500 mg 8-11 tablet by ity o f tablet 00:00: mouth (four) Medical times Branch daily as needed for Pain (scale 7-10). methocarbam 2021-0 Yes [id number] 500mg Take 1 Univers oL 500 mg 8-11 tablet by ity o f tablet 00:00: mouth (four) Medical times Branch daily as needed for Pain (scale 7-10). methocarbam 2-0 Yes [id number] 500mg Take 1 Univers oL 500 mg 8-11 tablet by ity o f tablet 00:00: mouth (four) Medical times Branch daily as needed for Pain (scale 7-10). methocarbam 2-0 Yes [id number] 500mg Take 1 Univers oL 500 mg 8-11 tablet by ity o f tablet 00:00: mouth (four) Medical times Branch daily as needed for Pain (scale 7-10). methocarbam 2021-0 Yes [id number] 500mg Take 1 Univers oL 500 mg 8-11 tablet by ity o f tablet 00:00: mouth (four) Medical times Branch daily as needed for Pain (scale 7-10). methocarbam 2021-0 Yes [id number] 500mg Take 1 Univers oL 500 mg 8-11 tablet by ity o f tablet 00:00: mouth (four) Medical times Branch daily as needed for Pain (scale 7-10). methocarbam 2021-0 Yes [id number] 500mg Take 1 Univers oL 500 mg 8-11 tablet by ity o f tablet 00:00: mouth (four) Medical times Branch daily as needed for Pain (scale 7-10). methocarbam 2-0 Yes [id number] 500mg Take 1 Univers oL 500 mg 8-11 tablet by ity o f tablet 00:00: mouth (four) Medical times Branch daily as needed for Pain (scale 7-10). methocarbam 2-0 Yes [id number] 500mg Take 1 Univers oL 500 mg 8-11 tablet by ity o f tablet 00:00: mouth (four) Medical times Branch daily as needed for Pain (scale 7-10). methocarbam 2-0 Yes [id number] 500mg Take 1 Univers oL 500 mg 8-11 tablet by ity o f tablet 00:00: mouth (four) Medical times Branch daily as needed for Pain (scale 7-10). LOSARTAN 50 2021-0 Yes [id number] Take 1 Univers mg tablet 7-20 tablet by ity o f 00:00: mouth [place] 00 twice Medical daily Branch DILTIAZEM 2-0 Yes [id number] Take 1 Un jerrod 120 mg 24 7-20 capsule by ity of hr capsule 00:00: mouth twice Medical daily Branch LOSARTAN 50 2021-0 Yes [id number] Take 1 Univers mg tablet 7-20 tablet by ity o f 00:00: mouth twice Medical daily Branch DILTIAZEM 2021-0 Yes [id number] Take 1 Un jerrod 120 mg 24 7-20 capsule by ity of hr capsule 00:00: mouth twice Medical daily Branch LOSARTAN 50 2021-0 Yes [id number] Take 1 Univers mg tablet 7-20 tablet by ity o f 00:00: mouth twice Medical daily Branch DILTIAZEM 2021-0 Yes [id number] Take 1 Un jerrod 120 mg 24 7-20 capsule by ity of hr capsule 00:00: twice Medical daily Branch LOSARTAN 50 2021-0 Yes [id number] Take 1 Univers mg tablet 7-20 tablet by ity o f 00:00: mouth twice Medical daily Branch DILTIAZEM 2021-0 Yes [id number] Take 1 Un jerrod 120 mg 24 7-20 capsule by ity of hr capsule 00:00: mouth twice Medical daily Branch LOSARTAN 50 2021-0 Yes [id number] Take 1 Univers mg tablet 7-20 tablet by ity o f 00:00: mouth twice Medical daily Branch DILTIAZEM 2021-0 Yes [id number] Take 1 Un jerrod 120 mg 24 7-20 capsule by ity of hr capsule 00:00: twice Medical daily Branch LOSARTAN 50 2021-0 Yes [id number] Take 1 Univers mg tablet 7-20 tablet by ity o f 00:00: mouth twice Medical daily Branch DILTIAZEM 2021-0 Yes [id number] Take 1 Un jerrod 120 mg 24 7-20 capsule by ity of hr capsule 00:00: mouth twice Medical daily Branch LOSARTAN 50 2021-0 Yes [id number] Take 1 Univers mg tablet 7-20 tablet by ity o f 00:00: mouth twice Medical daily Branch DILTIAZEM 2-0 Yes [id number] Take 1 Un jerrod 120 mg 24 7-20 capsule by ity of hr capsule 00:00: mouth twice Medical daily Branch LOSARTAN 50 2021-0 Yes [id number] Take 1 Univers mg tablet 7-20 tablet by ity o f 00:00: mouth twice Medical daily Branch DILTIAZEM 2021-0 Yes [id number] Take 1 Un jerrod 120 mg 24 7-20 capsule by ity of hr capsule 00:00: twice Medical daily Branch LOSARTAN 50 2021-0 Yes [id number] Take 1 Univers mg tablet 7-20 tablet by ity o f 00:00: mouth twice Medical daily Branch DILTIAZEM 2021-0 Yes [id number] Take 1 Un jerrod 120 mg 24 7-20 capsule by ity of hr capsule 00:00: mouth twice Medical daily Branch LOSARTAN 50 2021-0 Yes [id number] Take 1 Univers mg tablet 7-20 tablet by ity o f 00:00: twice Medical daily Branch DILTIAZEM 2021-0 Yes [id number] Take 1 Un jerrod 120 mg 24 7-20 capsule by ity of hr capsule 00:00: twice Medical daily Branch LOSARTAN 50 2021-0 Yes [id number] Take 1 Univers mg tablet 7-20 tablet by ity o f 00:00: twice Medical daily Branch DILTIAZEM 2021-0 Yes [id number] Take 1 Un jerrod 120 mg 24 7-20 capsule by ity of hr capsule 00:00: twice Medical daily Branch LOSARTAN 50 2021-0 Yes [id number] Take 1 Univers mg tablet 7-20 tablet by ity o f 00:00: twice Medical daily Branch DILTIAZEM 2021-0 Yes [id number] Take 1 Un jerrod 120 mg 24 7-20 capsule by ity of hr capsule 00:00: twice Medical daily Branch LOSARTAN 50 2021-0 Yes [id number] Take 1 Univers mg tablet 7-20 tablet by ity o f 00:00: twice Medical daily Branch DILTIAZEM 2021-0 Yes [id number] Take 1 Un jerrod 120 mg 24 7-20 capsule by ity of hr capsule 00:00: twice Medical daily Branch LOSARTAN 50 2-0 Yes [id number] Take 1 Univers mg tablet 7-20 tablet by ity o f 00:00: twice Medical daily Branch DILTIAZEM 2021-0 Yes [id number] Take 1 Un jerrod 120 mg 24 7-20 capsule by ity of hr capsule 00:00: mouth twice Medical daily Branch LOSARTAN 50 2021-0 Yes [id number] Take 1 Univers mg tablet 7-20 tablet by ity o f 00:00: mouth twice Medical daily Branch DILTIAZEM 2021-0 Yes [id number] Take 1 Un jerrod 120 mg 24 7-20 capsule by ity of hr capsule 00:00: mouth twice Medical daily Branch LOSARTAN 50 2021-0 Yes [id number] Take 1 Univers mg tablet 7-20 tablet by ity o f 00:00: mouth twice Medical daily Branch DILTIAZEM 2021-0 Yes [id number] Take 1 Un jer[place] 120 mg 24 7-20 capsule by ity of hr capsule 00:00: mouth twice Medical daily Branch LOSARTAN 50 2021-0 Yes [id number] Take 1 Univers mg tablet 7-20 tablet by ity o f 00:00: mouth twice Medical daily Branch DILTIAZEM 2021-0 Yes [id number] Take 1 Un jerrod 120 mg 24 7-20 capsule by ity of hr capsule 00:00: mouth twice Medical daily Branch methocarbam 2021-0 Yes [id number] 500mg Take 1 Univers oL 500 mg 7-02 tablet by ity o f tablet 00:00: mouth ([facility]) Medical times Branch daily. methocarbam 2021-0 Yes [id number] 500mg Take 1 Univers oL 500 mg 7-02 tablet by ity o f tablet 00:00: mouth ([facility]) Medical times Branch daily. methocarbam 2021-0 Yes [id number] 500mg Take 1 Univers oL 500 mg 7-02 tablet by ity o f tablet 00:00: mouth (four) Medical times Branch daily. methocarbam 2021-0 Yes [id number] 500mg Take 1 Univers oL 500 mg 7-02 tablet by ity o f tablet 00:00: mouth (four) Medical times Branch daily. methocarbam 2021-0 Yes [id number] 500mg Take 1 Univers oL 500 mg 7-02 tablet by ity o f tablet 00:00: mouth (four) Medical times Branch daily. methocarbam 2021-0 2021- No [id number] 500mg Take 1 Univers oL 500 mg 03-27 08- tablet by ity of tablet 00:00: 00:00 mouth 4 [place] 00 :00 (four) Medical times Branch daily. SUMATRIPTAN 2021-0 Yes [id number] TAKE 1 Univers 50 mg 6-17 TABLET BY ity of tablet 00:00: MOUTH [place] 00 NEEDED FOR Medical MIGRAINE Branch HEADACHE (MAY REPEAT IN TWO HOURS) SUMATRIPTAN 2021-0 Yes [id number] TAKE 1 Univers 50 mg 6-17 TABLET BY ity of tablet 00:00: MOUTH [place] 00 NEEDED FOR Medical MIGRAINE Branch HEADACHE (MAY REPEAT IN TWO HOURS) SUMATRIPTAN 2021-0 Yes [id number] TAKE 1 Univers 50 mg 6-17 TABLET BY ity of tablet 00:00: MOUTH [place] 00 NEEDED FOR Medical MIGRAINE Branch HEADACHE (MAY REPEAT IN TWO HOURS) SUMATRIPTAN 2021-0 Yes [id number] TAKE 1 Univers 50 mg 6-17 TABLET BY ity of tablet 00:00: MOUTH [place] 00 NEEDED FOR Medical MIGRAINE Branch HEADACHE (MAY REPEAT IN TWO HOURS) SUMATRIPTAN 2021-0 Yes [id number] TAKE 1 Univers 50 mg 6-17 TABLET BY ity of tablet 00:00: MOUTH [place] 00 NEEDED FOR Medical MIGRAINE Branch HEADACHE (MAY REPEAT IN TWO HOURS) SUMATRIPTAN 2021-0 Yes [id number] TAKE 1 Univers 50 mg 6-17 TABLET BY ity of tablet 00:00: MOUTH [place] 00 NEEDED FOR Medical MIGRAINE Branch HEADACHE (MAY REPEAT IN TWO HOURS) SUMATRIPTAN 2-0 Yes [id number] TAKE 1 Univers 50 mg 6-17 TABLET BY ity of tablet 00:00: MOUTH [place] 00 NEEDED FOR Medical MIGRAINE Branch HEADACHE (MAY REPEAT IN TWO HOURS) SUMATRIPTAN 2-0 Yes [id number] TAKE 1 Univers 50 mg 6-17 TABLET BY ity of tablet 00:00: MOUTH [place] 00 NEEDED FOR Medical MIGRAINE Branch HEADACHE (MAY REPEAT IN TWO HOURS) SUMATRIPTAN 2-0 Yes [id number] TAKE 1 Univers 50 mg 6-17 TABLET BY ity of tablet 00:00: MOUTH [place] 00 NEEDED FOR Medical MIGRAINE Branch HEADACHE (MAY REPEAT IN TWO HOURS) SUMATRIPTAN 2-0 Yes [id number] TAKE 1 Univers 50 mg 6-17 TABLET BY ity of tablet 00:00: MOUTH [place] 00 NEEDED FOR Medical MIGRAINE Branch HEADACHE (MAY REPEAT IN TWO HOURS) SUMATRIPTAN 2-0 Yes [id number] TAKE 1 Univers 50 mg 6-17 TABLET BY ity of tablet 00:00: MOUTH [place] 00 NEEDED FOR Medical MIGRAINE Branch HEADACHE (MAY REPEAT IN TWO HOURS) SUMATRIPTAN 2-0 Yes [id number] TAKE 1 Univers 50 mg 6-17 TABLET BY ity of tablet 00:00: MOUTH [place] 00 NEEDED FOR Medical MIGRAINE Branch HEADACHE (MAY REPEAT IN TWO HOURS) SUMATRIPTAN 2-0 Yes [id number] TAKE 1 [facility] 50 mg 6-17 TABLET BY ity of tablet 00:00: MOUTH [place] 00 NEEDED FOR Medical MIGRAINE Branch HEADACHE (MAY REPEAT IN TWO HOURS) SUMATRIPTAN 2-0 Yes [id number] TAKE 1 [facility] 50 mg 6-17 TABLET BY ity of tablet 00:00: MOUTH [place] 00 NEEDED FOR Medical MIGRAINE Branch HEADACHE (MAY REPEAT IN TWO HOURS) SUMATRIPTAN 2021-0 Yes [id number] TAKE 1 [facility] 50 mg 6-17 TABLET BY ity of tablet 00:00: MOUTH [place] 00 NEEDED FOR Medical MIGRAINE Branch HEADACHE (MAY REPEAT IN TWO HOURS) SUMATRIPTAN 2021-0 Yes [id number] TAKE 1 [facility] 50 mg 6-17 TABLET BY ity of tablet 00:00: MOUTH [place] 00 NEEDED FOR Medical MIGRAINE Branch HEADACHE (MAY REPEAT IN TWO HOURS) SUMATRIPTAN 2-0 Yes [id number] TAKE 1 Univers 50 mg 6-17 TABLET BY ity of tablet 00:00: MOUTH [place] 00 NEEDED FOR Medical MIGRAINE Branch HEADACHE (MAY REPEAT IN TWO HOURS) SUMATRIPTAN 2022-0 2022- No [id number] TAKE 1 Univers 50 mg 6-17 09-06 TABLET BY ity of tablet 00:00: 00:00 MOUTH [place] 00 :00 NEEDED FOR Medical MIGRAINE Branch HEADACHE (MAY REPEAT IN TWO HOURS) SUMATRIPTAN 2022-0 2022- No [id number] TAKE 1 Univers 50 mg 6-17 -06 TABLET BY ity of tablet 00:00: 00:00 MOUTH [place] 00 :00 NEEDED FOR Medical MIGRAINE Branch HEADACHE (MAY REPEAT IN TWO HOURS) fexofenadin 2021-0 Yes [id number] 180mg Take 1 Univers e (LUIS 6-13 tablet by ity of ALLERGY) 00:00: mouth [place] 180 mg 00 daily. Medical tablet Branch fexofenadin Yes [id number] 180mg Take 1 Univers e (LUIS 6-13 tablet by ity of ALLERGY) 00:00: mouth [place] 180 mg 00 daily. Medical tablet Branch fexofenadin Yes [id number] 180mg Take 1 Univers e (LUIS 6-13 tablet by ity of ALLERGY) 00:00: mouth [place] 180 mg 00 daily. Medical tablet Branch fexofenadin Yes [id number] 180mg Take 1 Univers e (LUIS 6-13 tablet by ity of ALLERGY) 00:00: mouth [place] 180 mg 00 daily. Medical tablet Branch fexofenadin Yes [id number] 180mg Take 1 Univers e (LUIS 6-13 tablet by ity of ALLERGY) 00:00: mouth [place] 180 mg 00 daily. Medical tablet Branch fexofenadin Yes [id number] 180mg Take 1 Univers e (LUIS 6-13 tablet by ity of ALLERGY) 00:00: mouth [place] 180 mg 00 daily. Medical tablet Branch fexofenadin Yes [id number] 180mg Take 1 Univers e (LUIS 6-13 tablet by ity of ALLERGY) 00:00: mouth [place] 180 mg 00 daily. Medical tablet Branch fexofenadin Yes [id number] 180mg Take 1 Univers e (LUIS 6-13 tablet by ity of ALLERGY) 00:00: mouth [place] 180 mg 00 daily. Medical tablet Branch fexofenadin Yes [id number] 180mg Take 1 Univers e (LUIS 6-13 tablet by ity of ALLERGY) 00:00: mouth [place] 180 mg 00 daily. Medical tablet Branch fexofenadin 0 Yes [id number] 180mg Take 1 Univers e (LUIS 6-13 tablet by ity of ALLERGY) 00:00: mouth [place] 180 mg 00 daily. Medical tablet Branch fexofenadin Yes [id number] 180mg Take 1 Univers e (LUIS 6-13 tablet by ity of ALLERGY) 00:00: mouth [place] 180 mg 00 daily. Medical tablet Branch fexofenadin Yes [id number] 180mg Take 1 Univers e (LUIS 6-13 tablet by ity of ALLERGY) 00:00: mouth [place] 180 mg 00 daily. Medical tablet Branch fexofenadin 0 Yes [id number] 180mg Take 1 Univers e (LUIS 6-13 tablet by ity of ALLERGY) 00:00: mouth [place] 180 mg 00 daily. Medical tablet Branch fexofenadin Yes [id number] 180mg Take 1 [facility] e (LUIS 6-13 tablet by ity of ALLERGY) 00:00: mouth [place] 180 mg 00 daily. Medical tablet Branch fexofenadin Yes [id number] 180mg Take 1 [facility] e (LUIS 6-13 tablet by ity of ALLERGY) 00:00: mouth [place] 180 mg 00 daily. Medical tablet Branch fexofenadin Yes [id number] 180mg Take 1 [facility] e (LUIS 6-13 tablet by ity of ALLERGY) 00:00: mouth [place] 180 mg 00 daily. Medical tablet Branch fexofenadin Yes [id number] 180mg Take 1 [facility] e (LUIS 6-13 tablet by ity of ALLERGY) 00:00: mouth [place] 180 mg 00 daily. Medical tablet Branch fexofenadin Yes [id number] 180mg Take 1 [facility] e (LUIS 6-13 tablet by ity of ALLERGY) 00:00: mouth [place] 180 mg 00 daily. Medical tablet Branch fexofenadin Yes [id number] 180mg Take 1 [facility] e (LUIS 6-13 tablet by ity of ALLERGY) 00:00: mouth [place] 180 mg 00 daily. Medical tablet Branch fexofenadin Yes [id number] 180mg Take 1 [facility] e (LUIS 6-13 tablet by ity of ALLERGY) 00:00: mouth [place] 180 mg 00 daily. Medical tablet Branch fexofenadin Yes [id number] 180mg Take 1 [facility] e (LUIS 6-13 tablet by ity of ALLERGY) 00:00: mouth [place] 180 mg 00 daily. Medical tablet Branch fexofenadin Yes [id number] 180mg Take 1 [facility] e (LUIS 6-13 tablet by ity of ALLERGY) 00:00: mouth [place] 180 mg 00 daily. Medical tablet Branch fexofenadin 2022-0 Yes [id number] 180mg Take 1 [facility] e (LUIS 6-13 tablet by ity of ALLERGY) 00:00: mouth [place] 180 mg 00 daily. Medical tablet Branch fexofenadin Yes [id number] 180mg Take 1 [facility] e (LUIS 6-13 tablet by ity of ALLERGY) 00:00: mouth [place] 180 mg 00 daily. Medical tablet Branch fexofenadin Yes [id number] 180mg Take 1 [facility] e (LUIS 6-13 tablet by ity of ALLERGY) 00:00: mouth [place] 180 mg 00 daily. Medical tablet Branch fexofenadin Yes [id number] 180mg Take 1 [facility] e (LUIS 6-13 tablet by ity of ALLERGY) 00:00: mouth [place] 180 mg 00 daily. Medical tablet Branch fexofenadin Yes [id number] 180mg Take 1 [facility] e (LUIS 6-13 tablet by ity of ALLERGY) 00:00: mouth [place] 180 mg 00 daily. Medical tablet Branch fexofenadin Yes [id number] 180mg Take 1 [facility] e (LUIS 6-13 tablet by ity of ALLERGY) 00:00: mouth [place] 180 mg 00 daily. Medical tablet Branch rosuvastati Yes [id number] 10mg Take 1 [facility] n 10 mg 6-08 tablet by ity of tablet 00:00: mouth at [place] 00 bedtime. Medical Branch rosuvastati Yes [id number] 10mg Take 1 [facility] n 10 mg 6-08 tablet by ity of tablet 00:00: mouth at [place] 00 bedtime. Medical Branch rosuvastati Yes [id number] 10mg Take 1 [facility] n 10 mg 6-08 tablet by ity of tablet 00:00: mouth at [place] 00 bedtime. Medical Branch rosuvastati Yes [id number] 10mg Take 1 [facility] n 10 mg 6-08 tablet by ity of tablet 00:00: mouth at [place] 00 bedtime. Medical Branch rosuvastati Yes [id number] 10mg Take 1 [facility] n 10 mg 6-08 tablet by ity of tablet 00:00: mouth at [place] 00 bedtime. Medical Branch rosuvastati Yes [id number] 10mg Take 1 [facility] n 10 mg 6-08 tablet by ity of tablet 00:00: mouth at [place] bedtime. Medical Branch rosuvastati 2021- Yes [id number] 10mg Take 1 [facility] n 10 mg 6-08 tablet by ity of tablet 00:00: mouth at [place] bedtime. Medical Branch rosuvastati 0 Yes [id number] 10mg Take 1 [facility] n 10 mg 6-08 tablet by ity of tablet 00:00: mouth at [place] bedtime. Medical Branch rosuvastati 2021-0 Yes [id number] 10mg Take 1 [facility] n 10 mg 6-08 tablet by ity of tablet 00:00: mouth at [place] bedtime. Medical Branch rosuvastati 2021- Yes [id number] 10mg Take 1 [facility] n 10 mg 6-08 tablet by ity of tablet 00:00: mouth at [place] bedtime. Medical Branch rosuvastati Yes [id number] 10mg Take 1 [facility] n 10 mg 6-08 tablet by ity of tablet 00:00: mouth at [place] bedtime. Medical Branch rosuvastati Yes [id number] 10mg Take 1 [facility] n 10 mg 6-08 tablet by ity of tablet 00:00: mouth at [place] bedtime. Medical Branch rosuvastati Yes [id number] 10mg Take 1 [facility] n 10 mg 6-08 tablet by ity of tablet 00:00: mouth at [place] bedtime. Medical Branch rosuvastati Yes [id number] 10mg Take 1 [facility] n 10 mg 6-08 tablet by ity of tablet 00:00: mouth at [place] [address] bedtime. Medical Branch rosuvastati 2021-0 Yes [id number] 10mg Take 1 [facility] n 10 mg 6-08 tablet by ity of tablet 00:00: mouth at [place] [address] bedtime. Medical Branch rosuvastati 2021-0 Yes [id number] 10mg Take 1 [facility] n 10 mg 6-08 tablet by ity of tablet 00:00: mouth at [place] [address] bedtime. Medical Branch rosuvastati 2021-0 Yes [id number] 10mg Take 1 [facility] n 10 mg 6-08 tablet by ity of tablet 00:00: mouth at [place] [address] bedtime. Medical Branch rosuvastati 2021-0 Yes [id number] 10mg Take 1 [facility] n 10 mg 6-08 tablet by ity of tablet 00:00: mouth at [place] [address] bedtime. Medical Branch rosuvastati Yes [id number] 10mg Take 1 [facility] n 10 mg 6-08 tablet by ity of tablet 00:00: mouth at [place] [address] bedtime. Medical Branch rosuvastati Yes [id number] 10mg Take 1 [facility] n 10 mg 6-08 tablet by ity of tablet 00:00: mouth at [place] [address] bedtime. Medical Branch rosuvastati Yes [id number] 10mg Take 1 [facility] n 10 mg 6-08 tablet by ity of tablet 00:00: mouth at [place] [address] bedtime. Medical Branch rosuvastati Yes [id number] 10mg Take 1 [facility] n 10 mg 6-08 tablet by ity of tablet 00:00: mouth at [place] [address] bedtime. Medical Branch rosuvastati Yes [id number] 10mg Take 1 [facility] n 10 mg 6-08 tablet by ity of tablet 00:00: mouth at [place] [address] bedtime. Medical Branch rosuvastati Yes [id number] 10mg Take 1 [facility] n 10 mg 6-08 tablet by ity of tablet 00:00: mouth at [place] [address] bedtime. Medical Branch rosuvastati Yes [id number] 10mg Take 1 [facility] n 10 mg 6-08 tablet by ity of tablet 00:00: mouth at [place] [address] bedtime. Medical Branch rosuvastati Yes [id number] 10mg Take 1 [facility] n 10 mg 6-08 tablet by ity of tablet 00:00: mouth at [place] [address] bedtime. Medical Branch rosuvastati 2021- Yes [id number] 10mg Take 1 [facility] n 10 mg 6-08 tablet by ity of tablet 00:00: mouth at [place] [address] bedtime. Medical Branch rosuvastati 2021-0 Yes [id number] 10mg Take 1 [facility] n 10 mg 6-08 tablet by ity of tablet 00:00: mouth at [place] [address] bedtime. Medical Branch rosuvastati Yes [id number] 10mg Take 1 [facility] n 10 mg 6-08 tablet by ity of tablet 00:00: mouth at [place] [address] bedtime. Medical Branch rosuvastati 2021-0 Yes [id number] 10mg Take 1 [facility] n 10 mg 6-08 tablet by ity of tablet 00:00: mouth at [place] 00 bedtime. Medical Branch water for 2021- No PRN, Univers irrigation 03-02 Starting ity of irrigation 14:20: 15:50 on Tue [place] solution 00 :27 03/02/22 at Medica l 0920, Branch Until Tue03/02/22 at 1050, Routine, Intra-op simethicone 2021- No PRN, [facility] rs (GAS RELIEF 03-02 Starting ity of (SIMETHICON 14:20: 15:50 on Tue E[place] as E)) 40 00 :27 03/02/22 at Medical mg/0.6 mL 0920, Branch drops Until Tue03/02/22 at 1050, Routine, Intra-op lactated 2021- No 1000mL at 42 [facility] rs ringers IV 03-02-07 mL/hr, ity of infusion 12:45: 12:59 1,000 mL, [place] as 1,000 mL 00 :00 IV Medical Infusion, Branch ONCE, 1 dose, On Tue03/02/22 at 0745, Routine, DSU Pre-op lactated 2021- No 1000mL at 42 [facility] rs ringers IV 03-02-07 mL/hr, ity of infusion 12:45: 12:59 1,000 mL, [place] as 1,000 mL 00 :00 IV Medical Infusion, Branch ONCE, 1 dose, On Tue03/02/22 at 0745, Routine, DSU Pre-op FOLIC ACID Yes Take by [facility] ORAL 03-02 mouth ity of 11:23: daily. [address] MULTIVIT Yes Take by [facility] s &MINERALS/F 03-02 mouth. ity of ERROUS FUM 11:23: [place] ([address] VITAMIN Branch ORAL) METHYLCELLU Yes [facility] s LOSE (FIBER 03-02 ity of THERAPY 11:23: [place] MIS) [address] [place] [address] DOCUSATE Yes Take by [facility] s SODIUM 03-02 mouth. ity of (COLACE 11:23: [place] ORAL) [address] [place] [address] vitamin C 2022-0 Yes 1000mg Take 1,000 [...] [facility] rs FRUIT 6-07 mouth ity of EXTRACT 11:23: daily. [place] (CRANBERRY Medical ORAL) Branch CALCIUM Yes Take by [facility] ORAL 6-07 mouth ity of 11:23: daily. [place] Medical Branch DOCOSAHEXAN Yes 1000mg Take 1,000 [facility] OIC 6-07 mg by ity of ACID/EPA 11:23: mouth [place] (FISH OIL 09 daily. Medical ORAL) Branch BIOTIN ORAL Yes Take by Uni vers 6-07 mouth. ity of 11:23: [place] Medical Branch FOLIC ACID Yes Take by Univ ers ORAL 6-07 mouth ity of 11:23: daily. [place] Medical Branch MULTIVIT Yes Take by [facility] rs &MINERALS/F 6-07 mouth. ity of ERROUS FUM 11:23: [place] (MULTI 09 Medical VITAMIN Branch ORAL) METHYLCELLU Yes [facility] s LOSE (FIBER 6-07 ity of THERAPY 11:23: [place] MISC) 09 Medical Branch DOCUSATE Yes Take by [facility] s SODIUM 6-07 mouth. ity of (COLACE 11:23: [place] ORAL) 09 Medical Branch vitamin C Yes 1000mg Take 1,000 [facility] with derrell 6-07 mg by ity of hips 11:23: mouth [place] (VITAMIN C) 09 daily. Medica l 1,000 mg Branch tablet cholecalcif Yes 1000U Take 1,000 [facility] edmar, 6-07 Units by ity of vitamin D3, 11:23: mouth [place] (VITAMIN 09 daily. Medical D3) 1,000 Branch unit tablet CRANBERRY Yes Take by [facility] rs FRUIT 6-07 mouth ity of EXTRACT 11:23: daily. [place] (CRANBERRY 09 Medical ORAL) Branch CALCIUM 2022-0 Yes Take by Univers ORAL 6-07 mouth ity of 11:23: daily. [place] Medical Branch DOCOSAHEXAN Yes 1000mg Take 1,000 [facility] OIC 6-07 mg by ity of ACID/EPA 11:23: mouth [place] (FISH OIL 09 daily. Medical ORAL) Branch BIOTIN ORAL 0 Yes Take by Uni vers 6-07 mouth. ity of 11:23: Medical Branch FOLIC ACID 0 Yes Take by Univ ers ORAL 6-07 mouth ity of 11:23: daily. [place] Medical Branch MULTIVIT 0 Yes Take by Univer s &MINERALS/F 6-07 mouth. ity of ERROUS FUM 11:23: [place] (MULTI 09 Medical VITAMIN Branch ORAL) METHYLCELLU Yes [facility] s LOSE (FIBER 6-07 ity of THERAPY 11:23: [place] MISC) 09 Medical Branch DOCUSATE Yes Take by [facility] s SODIUM 6-07 mouth. ity of (COLACE 11:23: [place] ORAL) 09 Medical Branch vitamin C Yes 1000mg Take 1,000 [facility] with derrell 6-07 mg by ity of hips 11:23: mouth [place] (VITAMIN C) 09 daily. Medica l 1,000 mg Branch tablet cholecalcif Yes 1000U Take 1,000 [facility] edmar, 6-07 Units by ity of vitamin D3, 11:23: mouth [place] (VITAMIN 09 daily. Medical D3) 1,000 Branch unit tablet CRANBERRY Yes Take by [facility] rs FRUIT 6-07 mouth ity of EXTRACT 11:23: daily. [place] (CRANBERRY Medical ORAL) Branch CALCIUM 0 Yes Take by Univers ORAL 6-07 mouth ity of 11:23: daily. [place] Medical Branch DOCOSAHEXAN Yes 1000mg Take 1,000 [facility] OIC 6-07 mg by ity of ACID/EPA 11:23: mouth [place] (FISH OIL 09 daily. Medical ORAL) Branch BIOTIN ORAL 0 Yes Take by Uni vers 6-07 mouth. ity of 11:23: Medical Branch FOLIC ACID 0 Yes Take by Univ ers ORAL 6-07 mouth ity of 11:23: daily. [place] Medical Branch MULTIVIT 0 Yes Take by Univer s &MINERALS/F 6-07 mouth. ity of ERROUS FUM 11:23: [place] (MULTI 09 Medical VITAMIN Branch ORAL) METHYLCELLU Yes [facility] s LOSE (FIBER 6-07 ity of THERAPY 11:23: [facility]) 09 Medical Branch DOCUSATE Yes Take by [facility] s SODIUM 6-07 mouth. ity of (COLACE 11:23: [place] ORAL) 09 Medical Branch vitamin C Yes 1000mg Take 1,000 [facility] with derrell 6-07 mg by ity of hips 11:23: mouth [place] (VITAMIN C) 09 daily. Medica l 1,000 mg Branch tablet cholecalcif Yes 1000U Take 1,000 [facility] edmar, 6-07 Units by ity of vitamin D3, 11:23: mouth [place] (VITAMIN 09 daily. Medical D3) 1,000 Branch unit tablet CRANBERRY Yes Take by [facility] rs FRUIT 6-07 mouth ity of EXTRACT 11:23: daily. [place] (CRANBERRY 09 Medical ORAL) Branch CALCIUM Yes Take by [place] [facility] ORAL 6-07 mouth ity of 11:23: daily. [place] [address] Medical Branch DOCOSAHEXAN Yes 1000mg Take 1,000 Univers OIC 6-07 mg by ity of ACID/EPA 11:23: mouth [place] (FISH OIL 09 daily. Medical ORAL) Branch BIOTIN ORAL Yes Take by Uni vers 6-07 mouth. ity of 11:23: [place] [address] Medical Branch FOLIC ACID Yes Take by [facility] ers ORAL 6-07 mouth ity of 11:23: daily. [place] [address] Medical Branch MULTIVIT Yes Take by [facility] s &MINERALS/F 6-07 mouth. ity of ERROUS FUM 11:23: [place] (MULTI 09 Medical VITAMIN Branch ORAL) METHYLCELLU Yes [facility] s LOSE (FIBER 6-07 ity of THERAPY 11:23: [facility]) 09 Medical Branch DOCUSATE Yes Take by [facility] s SODIUM 6-07 mouth. ity of (COLACE 11:23: [place] ORAL) 09 Medical Branch vitamin C Yes 1000mg Take 1,000 [facility] with derrell 6-07 mg by ity of hips 11:23: mouth [place] (VITAMIN C) 09 daily. Medica l 1,000 mg Branch tablet cholecalcif 0 Yes 1000U Take 1,000 [facility] edmar, 6-07 Units by ity of vitamin D3, 11:23: mouth [place] (VITAMIN 09 daily. Medical D3) 1,000 Branch unit tablet CRANBERRY 0 Yes Take by [facility] rs FRUIT 6-07 mouth ity of EXTRACT 11:23: daily. [place] (CRANBERRY Medical ORAL) Branch CALCIUM Yes Take by Univers ORAL 6-07 mouth ity of 11:23: daily. [place] Medical Branch DOCOSAHEXAN Yes 1000mg Take 1,000 [facility] OIC 6-07 mg by ity of ACID/EPA 11:23: mouth [place] (FISH OIL 09 daily. Medical ORAL) Branch BIOTIN ORAL Yes Take by Uni vers 6-07 mouth. ity of 11:23: Medical Branch FOLIC ACID Yes Take by Univ ers ORAL 6-07 mouth ity of 11:23: daily. [place] Medical Branch MULTIVIT Yes Take by [facility] s &MINERALS/F 6-07 mouth. ity of ERROUS FUM 11:23: [place] (MULTI 09 Medical VITAMIN Branch ORAL) METHYLCELLU Yes [facility] s LOSE (FIBER 6-07 ity of THERAPY 11:23: [place] MISC) 09 Medical Branch DOCUSATE Yes Take by [facility] s SODIUM 6-07 mouth. ity of (COLACE 11:23: [place] ORAL) 09 Medical Branch vitamin C Yes 1000mg Take 1,000 Univers with derrell 6-07 mg by ity of hips 11:23: mouth [place] (VITAMIN C) 09 daily. Medica l 1,000 mg Branch tablet cholecalcif 0 Yes 1000U Take 1,000 [facility] edmar, 6-07 Units by ity of vitamin D3, 11:23: mouth [place] (VITAMIN 09 daily. Medical D3) 1,000 Branch unit tablet CRANBERRY 0 Yes Take by [facility] rs FRUIT 6-07 mouth ity of EXTRACT 11:23: daily. [place] (CRANBERRY 09 Medical ORAL) Branch CALCIUM Yes Take by Univers ORAL 6-07 mouth ity of 11:23: daily. [place] Medical Branch DOCOSAHEXAN Yes 1000mg Take 1,000 [facility] OIC 6-07 mg by ity of ACID/EPA 11:23: mouth [place] (FISH OIL 09 daily. Medical ORAL) Branch BIOTIN ORAL Yes Take by Uni vers 6-07 mouth. ity of 11:23: Medical Branch FOLIC ACID Yes Take by Univ ers ORAL 6-07 mouth ity of 11:23: daily. [place] Medical Branch MULTIVIT Yes Take by Univer s &MINERALS/F 6-07 mouth. ity of ERROUS FUM 11:23: [place] (MULTI 09 Medical VITAMIN Branch ORAL) METHYLCELLU Yes [facility] s LOSE (FIBER 6-07 ity of THERAPY 11:23: [place] MISC) 09 Medical Branch DOCUSATE Yes Take by Univer s SODIUM 6-07 mouth. ity of (COLACE 11:23: [place] ORAL) 09 Medical Branch vitamin C Yes 1000mg Take 1,000 Univers with derrell 6-07 mg by ity of hips 11:23: mouth [place] (VITAMIN C) 09 daily. Medica l 1,000 mg Branch tablet cholecalcif Yes 1000U Take 1,000 [facility] edmar, 6-07 Units by ity of vitamin D3, 11:23: mouth [place] (VITAMIN 09 daily. Medical D3) 1,000 Branch unit tablet CRANBERRY Yes Take by Unive rs FRUIT 6-07 mouth ity of EXTRACT 11:23: daily. [place] (CRANBERRY 09 Medical ORAL) Branch CALCIUM Yes Take by Univers ORAL 6-07 mouth ity of 11:23: daily. [place] Medical Branch DOCOSAHEXAN Yes 1000mg Take 1,000 Univers OIC 6-07 mg by ity of ACID/EPA 11:23: mouth [place] (FISH OIL 09 daily. Medical ORAL) Branch BIOTIN ORAL Yes Take by Uni vers 6-07 mouth. ity of 11:23: [place] Medical Branch FOLIC ACID Yes Take by Univ ers ORAL 6-07 mouth ity of 11:23: daily. [place] Medical Branch MULTIVIT Yes Take by Univer s &MINERALS/F 6-07 mouth. ity of ERROUS FUM 11:23: [place] (MULTI 09 Medical VITAMIN Branch ORAL) METHYLCELLU 2022-0 Yes Univer s LOSE (FIBER 6-07 ity of THERAPY 11:23: [facility]) 09 Medical Branch DOCUSATE Yes Take by [facility] s SODIUM 6-07 mouth. ity of (COLACE [...] Branch unit tablet CRANBERRY Yes Take by [facility] FRUIT 6-07 mouth ity of EXTRACT 11:23: daily. [place] (CRANBERRY 09 Medical ORAL) Branch CALCIUM Yes Take by [place] [facility] ORAL 6-07 mouth ity of 11:23: daily. [place] Medical Branch DOCOSAHEXAN Yes 1000mg Take 1,000 Univers OIC 6-07 mg by ity of ACID/EPA 11:23: mouth [place] (FISH OIL 09 daily. Medical ORAL) Branch BIOTIN ORAL Yes Take by Uni vers 6-07 mouth. ity of 11:23: [place] [address] Medical Branch FOLIC ACID Yes Take by [facility] ers ORAL 6-07 mouth ity of 11:23: daily. [place] Medical Branch MULTIVIT Yes Take by [facility] s &MINERALS/F 6-07 mouth. ity of ERROUS FUM 11:23: [place] (MULTI 09 Medical VITAMIN Branch ORAL) METHYLCELLU Yes [facility] s LOSE (FIBER 6-07 ity of THERAPY 11:23: [facility]) 09 Medical Branch DOCUSATE Yes Take by [facility] SODIUM 6-07 mouth. ity of (COLACE 11:23: [place] ORAL) 09 Medical Branch vitamin C Yes [...] 6-07 mouth ity of EXTRACT 11:23: daily. [place] (CRANBERRY Medical ORAL) Branch CALCIUM Yes Take by Univers ORAL 6-07 mouth ity of 11:23: daily. [place] Medical Branch DOCOSAHEXAN Yes 1000mg Take 1,000 [facility] OIC 6-07 mg by ity of ACID/EPA 11:23: mouth [place] (FISH OIL 09 daily. Medical ORAL) Branch BIOTIN ORAL Yes Take by Uni vers 6-07 mouth. ity of 11:23: Medical Branch FOLIC ACID Yes Take by Univ ers ORAL 6-07 mouth ity of 11:23: daily. [place] Medical Branch MULTIVIT Yes Take by Univer s &MINERALS/F 6-07 mouth. ity of ERROUS FUM 11:23: [place] (MULTI 09 Medical VITAMIN Branch ORAL) METHYLCELLU Yes Univer s LOSE (FIBER 6-07 ity of THERAPY 11:23: [place] MISC) 09 Medical Branch DOCUSATE Yes Take by Univer s SODIUM 6-07 mouth. ity of (COLACE 11:23: [place] ORAL) Medical Branch vitamin C Yes 1000mg Take 1,000 [facility] with derrell 6-07 mg by ity of hips 11:23: mouth [place] (VITAMIN C) 09 daily. Medica l 1,000 mg Branch tablet cholecalcif Yes 1000U Take 1,000 [facility] edmar, 6-07 Units by ity of vitamin D3, 11:23: mouth [place] (VITAMIN 09 daily. Medical D3) 1,000 Branch unit tablet CRANBERRY Yes Take by [facility] rs FRUIT 6-07 mouth ity of EXTRACT 11:23: daily. [place] (CRANBERRY Medical ORAL) Branch CALCIUM Yes Take by Univers ORAL 6-07 mouth ity of 11:23: daily. [place] Medical Branch DOCOSAHEXAN Yes 1000mg Take 1,000 Univers OIC 6-07 mg by ity of ACID/EPA 11:23: mouth [place] (FISH OIL 09 daily. Medical ORAL) Branch BIOTIN ORAL Yes Take by Uni vers 6-07 mouth. ity of 11:23: Medical Branch FOLIC ACID Yes Take by Univ ers ORAL 6-07 mouth ity of 11:23: daily. [place] Medical Branch MULTIVIT Yes Take by Univer s &MINERALS/F 6-07 mouth. ity of ERROUS FUM 11:23: [place] ([facility] 09 Medical VITAMIN Branch ORAL) METHYLCELLU 0 Yes Univer s LOSE (FIBER 6-07 ity of THERAPY 11:23: [facility]) 09 Medical Branch DOCUSATE Yes [...] by ity of vitamin D3, 11:23: mouth [place] (VITAMIN 09 daily. Medical D3) 1,000 Branch unit tablet CRANBERRY Yes Take by Unive rs FRUIT 6-07 mouth ity of EXTRACT 11:23: daily. [place] (CRANBERRY Medical ORAL) Branch CALCIUM Yes Take by Univers ORAL 6-07 mouth ity of 11:23: daily. [place] Medical Branch DOCOSAHEXAN Yes 1000mg Take 1,000 Univers OIC 6-07 mg by ity of ACID/EPA 11:23: mouth [place] (FISH OIL 09 daily. Medical ORAL) Branch BIOTIN ORAL Yes Take by Uni vers 6-07 mouth. ity of 11:23: [place] Medical Branch FOLIC ACID Yes Take by Univ ers ORAL 6-07 mouth ity of 11:23: daily. [place] Medical Branch MULTIVIT Yes Take by Univer s &MINERALS/F 6-07 mouth. ity of ERROUS FUM 11:23: [place] ([facility] 09 Medical VITAMIN Branch ORAL) METHYLCELLU 0 Yes Univer s LOSE (FIBER 6-07 ity of THERAPY 11:23: [facility]) 09 Medical Branch DOCUSATE 2022-0 Yes Take by Univ s SODIUM 6-07 mouth. ity of (COLACE [...] Branch unit tablet CRANBERRY Yes Take by [facility] rs FRUIT 6-07 mouth ity of EXTRACT 11:23: daily. [place] (CRANBERRY Medical ORAL) Branch CALCIUM Yes Take by [employer] ORAL 6-07 mouth ity of 11:23: daily. [place] Medical Branch DOCOSAHEXAN Yes 1000mg Take 1,000 Univers OIC 6-07 mg by ity of ACID/EPA 11:23: mouth [place] (FISH OIL 09 daily. Medical ORAL) Branch BIOTIN ORAL Yes Take by [employer] vers 6-07 mouth. ity of 11:23: [place] [address] Medical Branch FOLIC ACID Yes Take by [facility] [employer] [facility] ers ORAL 6-07 mouth ity of 11:23: daily. [place] [address] Medical Branch MULTIVIT Yes Take by [employer] [facility] s &MINERALS/F 6-07 mouth. ity of ERROUS FUM 11:23: [place] (MULTI 09 Medical VITAMIN Branch ORAL) METHYLCELLU Yes [facility] s LOSE (FIBER 6-07 ity of THERAPY 11:23: [place] MISC) 09 Medical Branch DOCUSATE Yes Take by [facility] s SODIUM 6-07 mouth. ity of (COLACE 11:23: [place] ORAL) 09 Medical Branch vitamin C Yes 1000mg Take 1,000 [facility] with derrell 6-07 mg by ity of hips 11:23: mouth [place] (VITAMIN C) 09 daily. Medica l 1,000 mg Branch tablet cholecalcif Yes 1000U Take 1,000 [facility] edmar, 6-07 Units by ity of vitamin D3, 11:23: mouth [place] (VITAMIN 09 daily. Medical D3) 1,000 Branch unit tablet CRANBERRY 0 Yes Take by Unive rs FRUIT 6-07 mouth ity of EXTRACT 11:23: daily. [place] (CRANBERRY Medical ORAL) Branch CALCIUM Yes Take by Univers ORAL 6-07 mouth ity of 11:23: daily. [place] Medical Branch DOCOSAHEXAN Yes 1000mg Take 1,000 Univers OIC 6-07 mg by ity of ACID/EPA 11:23: mouth [place] (FISH OIL 09 daily. Medical ORAL) Branch BIOTIN ORAL Yes Take by Uni vers 6-07 mouth. ity of 11:23: Medical Branch FOLIC ACID Yes Take by Univ ers ORAL 6-07 mouth ity of 11:23: daily. [place] Medical Branch MULTIVIT Yes Take by [facility] s &MINERALS/F 6-07 mouth. ity of ERROUS FUM 11:23: [place] (MULTI 09 Medical VITAMIN Branch ORAL) METHYLCELLU Yes [facility] s LOSE (FIBER 6-07 ity of THERAPY 11:23: [place] MISC) Medical Branch DOCUSATE Yes Take by [facility] s SODIUM 6-07 mouth. ity of (COLACE 11:23: [place] ORAL) 09 Medical Branch vitamin C Yes 1000mg Take 1,000 Univers with derrell 6-07 mg by ity of hips 11:23: mouth [place] (VITAMIN C) 09 daily. Medica l 1,000 mg Branch tablet cholecalcif Yes 1000U Take 1,000 Univers edmar, 6-07 Units by ity of vitamin D3, 11:23: mouth [place] (VITAMIN 09 daily. Medical D3) 1,000 Branch unit tablet CRANBERRY Yes Take by [facility] rs FRUIT 6-07 mouth ity of EXTRACT 11:23: daily. [place] (CRANBERRY Medical ORAL) Branch CALCIUM Yes Take by Univers ORAL 6-07 mouth ity of 11:23: daily. [place] Medical Branch DOCOSAHEXAN Yes 1000mg Take 1,000 [facility] OIC 6-07 mg by ity of ACID/EPA 11:23: mouth [place] (FISH OIL 09 daily. Medical ORAL) Branch BIOTIN ORAL Yes Take by Uni vers 6-07 mouth. ity of 11:23: Medical Branch FOLIC ACID Yes Take by Univ ers ORAL 6-07 mouth ity of 11:23: daily. [place] Medical Branch MULTIVIT Yes Take by [facility] s &MINERALS/F 6-07 mouth. ity of ERROUS FUM 11:23: [place] (MULTI 09 Medical VITAMIN Branch ORAL) METHYLCELLU Yes [facility] [place] LOSE (FIBER 6-07 ity of THERAPY 11:23: [facility]) 09 Medical Branch DOCUSATE Yes Take by [facility] [place] [facility] SODIUM 6-07 mouth. ity of (COLACE 11:23: [place] ORAL) 09 Medical Branch vitamin C Yes 1000mg Take 1,000 [facility] with derrell 6-07 mg by ity of hips 11:23: mouth [place] (VITAMIN C) 09 daily. Medica l 1,000 mg Branch tablet cholecalcif Yes 1000U Take 1,000 [facility] edmar, 6-07 Units by ity of vitamin D3, 11:23: mouth [place] (VITAMIN 09 daily. Medical D3) 1,000 Branch unit tablet CRANBERRY Yes Take by [facility] rs FRUIT 6-07 mouth ity of EXTRACT 11:23: daily. [place] (CRANBERRY 09 Medical ORAL) Branch CALCIUM Yes Take by [facility] ORAL 6-07 mouth ity of 11:23: daily. [place] [facility] DOCOSAHEXAN Yes 1000mg Take 1,000 [facility] OIC 6-07 mg by ity of ACID/EPA 11:23: mouth [place] (FISH OIL 09 daily. Medical ORAL) Branch BIOTIN ORAL Yes Take by Uni vers 6-07 mouth. ity of 11:23: [place] [address] Medical Branch FOLIC ACID Yes Take by [facility] ers ORAL 6-07 mouth ity of 11:23: daily. [place] [address] Medical Branch MULTIVIT Yes Take by [facility] [place] s &MINERALS/F 6-07 mouth. ity of ERROUS FUM 11:23: [place] (MULTI 09 Medical VITAMIN Branch ORAL) METHYLCELLU Yes [facility]iver s LOSE (FIBER 6-07 ity of THERAPY 11:23: [facility]) 09 Medical Branch DOCUSATE Yes Take by [facility] s SODIUM 6-07 mouth. ity of (COLACE [...] [facility] [place] rs FRUIT 6-07 mouth ity of EXTRACT 11:23: daily. [place] (CRANBERRY Medical ORAL) Branch CALCIUM Yes Take by Univers ORAL 6-07 mouth ity of 11:23: daily. [place] [facility] Branch DOCOSAHEXAN Yes 1000mg Take 1,000 [facility] OIC 6-07 mg by ity of ACID/EPA 11:23: mouth [place] (FISH OIL 09 daily. Medical ORAL) Branch BIOTIN ORAL Yes Take by Uni vers 6-07 mouth. ity of 11:23: Medical Branch FOLIC ACID Yes Take by Univ ers ORAL 6-07 mouth ity of 11:23: daily. [place] [facility] MULTIVIT Yes Take by [facility] [place] s &MINERALS/F 6-07 mouth. ity of ERROUS FUM 11:23: [place] (MULTI 09 Medical VITAMIN Branch ORAL) METHYLCELLU Yes Univer s LOSE (FIBER 6-07 ity of THERAPY 11:23: [place] MISC) 09 Medical Branch DOCUSATE Yes Take [...] [facility] rs FRUIT 6-07 mouth ity of EXTRACT 11:23: daily. [place] (CRANBERRY 09 Medical ORAL) Branch CALCIUM Yes Take by Univers ORAL 6-07 mouth ity of 11:23: daily. [place] [facility] Branch DOCOSAHEXAN Yes 1000mg Take 1,000 [facility] OIC 6-07 mg by ity of ACID/EPA 11:23: mouth [place] (FISH OIL 09 daily. Medical ORAL) Branch BIOTIN ORAL Yes Take by Uni vers 6-07 mouth. ity of 11:23: Medical Branch FOLIC ACID Yes Take by Univ ers ORAL 6-07 mouth ity of 11:23: daily. [place] [facility] Branch MULTIVIT Yes Take by Univer s &MINERALS/F 6-07 mouth. ity of ERROUS FUM 11:23: [place] (MULTI 09 Medical VITAMIN Branch ORAL) METHYLCELLU Yes [facility] s LOSE (FIBER 6-07 ity of THERAPY 11:23: [place] MISC) 09 Medical Branch DOCUSATE Yes Take by [facility] [place] s SODIUM 6-07 mouth. ity of (COLACE 11:23: [place] ORAL) 09 Medical Branch vitamin C Yes 1000mg Take 1,000 [facility] with derrell 6-07 mg by ity of hips 11:23: mouth [place] (VITAMIN C) 09 daily. Medica l 1,000 mg Branch tablet cholecalcif Yes 1000U Take 1,000 [facility] edmar, 6-07 Units by ity of vitamin D3, 11:23: mouth [place] (VITAMIN 09 daily. Medical D3) 1,000 Branch unit tablet CRANBERRY Yes Take by [facility] rs FRUIT 6-07 mouth ity of EXTRACT 11:23: daily. [place] (CRANBERRY Medical ORAL) Branch CALCIUM Yes Take by Univers ORAL 6-07 mouth ity of 11:23: daily. [place] Medical Branch DOCOSAHEXAN Yes 1000mg Take 1,000 [facility] OIC 6-07 mg by ity of ACID/EPA 11:23: mouth [place] (FISH OIL 09 daily. Medical ORAL) Branch BIOTIN ORAL Yes Take by Uni vers 6-07 mouth. ity of 11:23: Medical Branch FOLIC ACID Yes Take by Univ ers ORAL 6-07 mouth ity of 11:23: daily. Medical Branch MULTIVIT 2022-0 Yes Take by Univer s &MINERALS/F 6-07 mouth. ity of ERROUS FUM 11:23: [place] (MULTI 09 Medical VITAMIN Branch ORAL) METHYLCELLU 0 Yes [facility] [place] [facility] LOSE (FIBER 6-07 ity of THERAPY 11:23: [facility]) 09 Medical Branch DOCUSATE Yes Take by [facility] [place] [facility] SODIUM 6-07 mouth. ity of (COLACE 11:23: [place] ORAL) 09 Medical Branch vitamin C Yes 1000mg Take 1,000 [facility] with derrell 6-07 mg by ity of hips 11:23: mouth [place] (VITAMIN C) 09 daily. Medica l 1,000 mg Branch tablet cholecalcif Yes 1000U Take 1,000 [facility] edmar, 6-07 Units by ity of vitamin D3, 11:23: mouth [place] (VITAMIN 09 daily. Medical D3) 1,000 Branch unit tablet CRANBERRY Yes Take by [facility] [place] rs FRUIT 6-07 mouth ity of EXTRACT 11:23: daily. [place] (CRANBERRY 09 Medical ORAL) Branch CALCIUM Yes Take by Univers ORAL 6-07 mouth ity of 11:23: daily. [place] [facility] Branch DOCOSAHEXAN Yes 1000mg Take 1,000 [facility] OIC 6-07 mg by ity of ACID/EPA 11:23: mouth [place] (FISH OIL 09 daily. Medical ORAL) Branch BIOTIN ORAL Yes Take by Uni vers 6-07 mouth. ity of 11:23: [place] [address] Medical Branch FOLIC ACID Yes Take by Univ ers ORAL 6-07 mouth ity of 11:23: daily. [place] [address] Medical Branch MULTIVIT Yes Take by Univer s &MINERALS/F 6-07 mouth. ity of ERROUS FUM 11:23: [place] (MULTI 09 Medical VITAMIN Branch ORAL) METHYLCELLU 0 Yes [facility] [place] [facility] LOSE (FIBER 6-07 ity of THERAPY 11:23: [facility]) 09 Medical Branch DOCUSATE 0 Yes Take by [facility] [place] s SODIUM 6-07 mouth. ity of (COLACE 11:23: [place] ORAL) 09 Medical Branch vitamin C Yes 1000mg Take 1,000 [facility] with derrell 6-07 mg by ity of hips 11:23: mouth [place] (VITAMIN C) 09 daily. Medica l 1,000 mg Branch tablet cholecalcif 2021-0 Yes 1000U Take 1,000 [facility] edmar, 6-07 Units by ity of vitamin D3, 11:23: mouth [place] (VITAMIN 09 daily. Medical D3) 1,000 Branch unit tablet CRANBERRY 2021-0 Yes Take by [facility] [place] rs FRUIT 6-07 mouth ity of EXTRACT 11:23: daily. [place] (CRANBERRY Medical ORAL) Branch CALCIUM 0 Yes Take by Univers ORAL 6-07 mouth ity of 11:23: daily. [place] Medical Branch DOCOSAHEXAN 0 Yes 1000mg Take 1,000 [facility] OIC 6-07 mg by ity of ACID/EPA 11:23: mouth [place] (FISH OIL 09 daily. Medical ORAL) Branch BIOTIN ORAL 0 Yes Take by Uni vers 6-07 mouth. ity of 11:23: Medical Branch FOLIC ACID 0 Yes Take by Univ ers ORAL 6-07 mouth ity of 11:23: daily. [place] [facility] Branch MULTIVIT Yes Take by [facility] s &MINERALS/F 6-07 mouth. ity of ERROUS FUM 11:23: [place] (MULTI 09 Medical VITAMIN Branch ORAL) METHYLCELLU 0 Yes [facility] [place] [facility] LOSE (FIBER 6-07 ity of THERAPY 11:23: [place] MISC) 09 Medical Branch DOCUSATE 0 Yes Take by Univer s SODIUM 6-07 mouth. ity of (COLACE 11:23: [place] ORAL) 09 Medical Branch vitamin C 0 Yes 1000mg Take 1,000 [facility] with derrell 6-07 mg by ity of hips 11:23: mouth [place] (VITAMIN C) 09 daily. Medica l 1,000 mg Branch tablet cholecalcif 2021-0 Yes 1000U Take 1,000 [facility] edmar, 6-07 Units by ity of vitamin D3, 11:23: mouth [place] (VITAMIN 09 daily. Medical D3) 1,000 Branch unit tablet CRANBERRY 2021-0 Yes Take by [facility] [place] rs FRUIT 6-07 mouth ity of EXTRACT 11:23: daily. [place] (CRANBERRY Medical ORAL) Branch CALCIUM 0 Yes Take by Univers ORAL 6-07 mouth ity of 11:23: daily. [place] Medical Branch DOCOSAHEXAN 2022-0 Yes 1000mg Take 1,000 [facility] OIC 6-07 mg by ity of ACID/EPA 11:23: mouth [place] (FISH OIL 09 daily. Medical ORAL) Branch BIOTIN ORAL Yes Take by Uni vers 6-07 mouth. ity of 11:23: Medical Branch FOLIC ACID Yes Take by Univ ers ORAL 6-07 mouth ity of 11:23: daily. [place] Medical Branch MULTIVIT Yes Take by Univer s &MINERALS/F 6-07 mouth. ity of ERROUS FUM 11:23: [place] (MULTI 09 Medical VITAMIN Branch ORAL) METHYLCELLU Yes [facility] [place] [facility] LOSE (FIBER 6-07 ity of THERAPY 11:23: [place] MISC) 09 Medical Branch DOCUSATE Yes Take by [facility] [place] s SODIUM 6-07 mouth. ity of (COLACE 11:23: [place] ORAL) 09 Medical Branch vitamin C Yes 1000mg Take 1,000 [facility] with drerell 6-07 mg by ity of hips 11:23: mouth [place] (VITAMIN C) 09 daily. Medica l 1,000 mg Branch tablet cholecalcif Yes 1000U Take 1,000 [facility] edmar, 6-07 Units by ity of vitamin D3, 11:23: mouth [place] (VITAMIN 09 daily. Medical D3) 1,000 Branch unit tablet CRANBERRY Yes Take by Unive rs FRUIT 6-07 mouth ity of EXTRACT 11:23: daily. [place] (CRAN[place]Y Medical ORAL) Branch CALCIUM Yes Take by Univers ORAL 6-07 mouth ity of 11:23: daily. [place] Medical Branch DOCOSAHEXAN Yes 1000mg Take 1,000 [facility] OIC 6-07 mg by ity of ACID/EPA 11:23: mouth [place] (FISH OIL 09 daily. Medical ORAL) Branch BIOTIN ORAL Yes Take by Uni vers 6-07 mouth. ity of 11:23: Medical Branch FOLIC ACID Yes Take by Univ ers ORAL 6-07 mouth ity of 11:23: daily. [place] Medical Branch MULTIVIT Yes Take by Univer s &MINERALS/F 6-07 mouth. ity of ERROUS FUM 11:23: [place] (MULTI 09 Medical VITAMIN Branch ORAL) METHYLCELLU Yes Univer s LOSE (FIBER 6-07 ity of THERAPY 11:23: [facility]) 09 Medical Branch DOCUSATE Yes Take by [facility] [place] s SODIUM 6-07 mouth. ity of (COLACE [...] Branch unit tablet CRANBERRY Yes Take by [facility] rs FRUIT 6-07 mouth ity of EXTRACT 11:23: daily. [place] (CRAN[place] Medical ORAL) Branch CALCIUM Yes Take by Univers ORAL 6-07 mouth ity of 11:23: daily. [place] Medical Branch DOCOSAHEXAN Yes 1000mg Take 1,000 [facility] OIC 6-07 mg by ity of ACID/EPA 11:23: mouth [place] (FISH OIL 09 daily. Medical ORAL) Branch BIOTIN ORAL Yes Take by Uni vers 6-07 mouth. ity of 11:23: [place] Medical Branch FOLIC ACID Yes Take by Univ ers ORAL 6-07 mouth ity of 11:23: daily. [place] [facility] Branch MULTIVIT Yes Take by [facility] [place] s &MINERALS/F 6-07 mouth. ity of ERROUS FUM 11:23: [place] (MULTI 09 Medical VITAMIN Branch ORAL) METHYLCELLU Yes Univer s LOSE (FIBER 6-07 ity of THERAPY 11:23: [facility]) 09 Medical Branch DOCUSATE Yes Take by [facility] [place] s SODIUM 6-07 mouth. ity of (COLACE [...] [facility] [place] rs FRUIT 6-07 mouth ity of EXTRACT 11:23: daily. [place] (CRAN[place]ERRY Medical ORAL) Branch CALCIUM Yes Take by Univers ORAL 6-07 mouth ity of 11:23: daily. [place] [facility] Branch DOCOSAHEXAN Yes 1000mg Take 1,000 [facility] OIC 6-07 mg by ity of ACID/EPA 11:23: mouth [place] (FISH OIL 09 daily. Medical ORAL) Branch BIOTIN ORAL Yes Take by Uni vers 6-07 mouth. ity of 11:23: Medical Branch FOLIC ACID Yes Take by Univ ers ORAL 6-07 mouth ity of 11:23: daily. [place] Medical Branch MULTIVIT Yes Take by [facility] [place] s &MINERALS/F 6-07 mouth. ity of ERROUS FUM 11:23: [place] (MULTI 09 Medical VITAMIN Branch ORAL) METHYLCELLU Yes Univer s LOSE (FIBER 6-07 ity of THERAPY 11:23: [place] MISC) 09 Medical Branch DOCUSATE Yes Take by [facility] [place] s SODIUM 6-07 mouth. ity of (COLACE 11:23: [place] ORAL) Medical Branch vitamin C Yes 1000mg Take 1,000 [facility] with derrell 6-07 mg by ity of hips 11:23: mouth [place] (VITAMIN C) 09 daily. Medica l 1,000 mg Branch tablet cholecalcif Yes 1000U Take 1,000 [facility] edmar, 6-07 Units by ity of vitamin D3, 11:23: mouth [place] (VITAMIN 09 daily. Medical D3) 1,000 Branch unit tablet CRANBERRY Yes Take by [facility] [place] rs FRUIT 6-07 mouth ity of EXTRACT 11:23: daily. [place] (CRAN[place]Y Medical ORAL) Branch CALCIUM Yes Take by Univers ORAL 6-07 mouth ity of 11:23: daily. [place] Medical Branch DOCOSAHEXAN Yes 1000mg Take 1,000 [facility] OIC 6-07 mg by ity of ACID/EPA 11:23: mouth [place] (FISH OIL 09 daily. Medical ORAL) Branch BIOTIN ORAL Yes Take by Uni vers 6-07 mouth. ity of 11:23: Medical Branch FOLIC ACID Yes Take by Univ ers ORAL 6-07 mouth ity of 11:23: daily. [place] Medical Branch MULTIVIT Yes Take by Univer s &MINERALS/F 6-07 mouth. ity of ERROUS FUM 11:23: [place] (MULTI 09 Medical VITAMIN Branch ORAL) METHYLCELLU Yes Univer s LOSE (FIBER 6-07 ity of THERAPY 11:23: [facility]) 09 Medical Branch DOCUSATE Yes Take by Univer s SODIUM 6-07 mouth. ity of (COLACE 11:23: [place] ORAL) 09 Medical Branch vitamin C Yes 1000mg Take 1,000 [facility] with derrell 6-07 mg by ity of hips 11:23: mouth [place] (VITAMIN C) 09 daily. Medica l 1,000 mg Branch tablet cholecalcif Yes 1000U Take 1,000 [facility] edmar, 6-07 Units by ity of vitamin D3, 11:23: mouth [place] (VITAMIN 09 daily. Medical D3) 1,000 Branch unit tablet CRANBERRY Yes Take by Unive rs FRUIT 6-07 mouth ity of EXTRACT 11:23: daily. [place] ([place]AN[place]Y Medical ORAL) Branch CALCIUM Yes Take by Univers ORAL 6-07 mouth ity of 11:23: daily. [place] Medical Branch DOCOSAHEXAN Yes 1000mg Take 1,000 [facility] OIC 6-07 mg by ity of ACID/EPA 11:23: mouth [place] (FISH OIL 09 daily. Medical ORAL) Branch BIOTIN ORAL Yes Take by Uni vers 6-07 mouth. ity of 11:23: Medical Branch FOLIC ACID Yes Take by Univ ers ORAL 6-07 mouth ity of 11:23: daily. [place] Medical Branch MULTIVIT Yes Take by Univer s &MINERALS/F 6-07 mouth. ity of ERROUS FUM 11:23: [place] (MULTI 09 Medical VITAMIN Branch ORAL) METHYLCELLU 0 Yes Univer s LOSE (FIBER 6-07 ity of THERAPY 11:23: [facility]) 09 Medical Branch DOCUSATE Yes Take by [facility] s SODIUM 6-07 mouth. ity of (COLACE [...] Branch unit tablet CRANBERRY Yes Take by [facility] rs FRUIT 6-07 mouth ity of EXTRACT 11:23: daily. [place] (CRANBERRY Medical ORAL) Branch CALCIUM Yes Take by [facility] ORAL 6-07 mouth ity of 11:23: daily. [place] Medical Branch DOCOSAHEXAN Yes 1000mg Take 1,000 Univers OIC 6-07 mg by ity of ACID/EPA 11:23: mouth [place] (FISH OIL 09 daily. Medical ORAL) Branch BIOTIN ORAL Yes Take by Uni vers 6-07 mouth. ity of 11:23: [place] [address] Medical Branch FOLIC ACID Yes Take by [facility] ers ORAL 6-07 mouth ity of 11:23: daily. [place] [address] Medical Branch MULTIVIT Yes Take by [facility] [place] s &MINERALS/F 6-07 mouth. ity of ERROUS FUM 11:23: [place] (MULTI 09 Medical VITAMIN Branch ORAL) METHYLCELLU Yes [facility] s LOSE (FIBER 6-07 ity of THERAPY 11:23: [place] MISC) 09 Medical Branch DOCUSATE Yes Take by [facility] s SODIUM 6-07 mouth. ity of (COLACE [...] [facility] rs FRUIT 6-07 mouth ity of EXTRACT 11:23: daily. [place] (CRANBERRY Medical ORAL) Branch CALCIUM Yes Take by Univers ORAL 6-07 mouth ity of 11:23: daily. [place] Medical Branch DOCOSAHEXAN Yes 1000mg Take 1,000 [facility] OIC 6-07 mg by ity of ACID/EPA 11:23: mouth [place] (FISH OIL 09 daily. Medical ORAL) Branch BIOTIN ORAL Yes Take by Uni vers 6-07 mouth. ity of 11:23: [place] Medical Branch FOLIC ACID Yes Take by Univ ers ORAL 6-07 mouth ity of 11:23: daily. [place] [facility] Branch MULTIVIT Yes Take by [facility] s &MINERALS/F 6-07 mouth. ity of ERROUS FUM 11:23: [place] (MULTI 09 Medical VITAMIN Branch ORAL) METHYLCELLU Yes [facility] s LOSE (FIBER 6-07 ity of THERAPY 11:23: [place] MISC) Medical Branch DOCUSATE Yes Take by [facility] s SODIUM 6-07 mouth. ity of (COLACE 11:23: [place] ORAL) Medical Branch vitamin C Yes 1000mg Take 1,000 [facility] with derrell 6-07 mg by ity of hips 11:23: mouth [place] (VITAMIN C) 09 daily. Medica l 1,000 mg Branch tablet cholecalcif Yes 1000U Take 1,000 [facility] edmar, 6-07 Units by ity of vitamin D3, 11:23: mouth [place] (VITAMIN 09 daily. Medical D3) 1,000 Branch unit tablet CRANBERRY Yes Take by [facility] rs FRUIT 6-07 mouth ity of EXTRACT 11:23: daily. [place] (CRANBERRY Medical ORAL) Branch CALCIUM Yes Take by Univers ORAL 6-07 mouth ity of 11:23: daily. [place] Medical Branch DOCOSAHEXAN Yes 1000mg Take 1,000 [facility] OIC 6-07 mg by ity of ACID/EPA 11:23: mouth [place] (FISH OIL 09 daily. Medical ORAL) Branch BIOTIN ORAL Yes Take by Uni vers 6-07 mouth. ity of 11:23: [place] [address] Medical Branch FOLIC ACID Yes Take by [facility] ers ORAL 6-07 mouth ity of 11:23: daily. [place] [address] Medical Branch MULTIVIT Yes Take by [facility] [place] s &MINERALS/F 6-07 mouth. ity of ERROUS FUM 11:23: [place] (MULTI Medical VITAMIN Branch ORAL) METHYLCELLU Yes Univer s LOSE (FIBER 6-07 ity of THERAPY 11:23: [facility]) 09 Medical Branch DOCUSATE Yes Take by [facility] [place] s SODIUM 6-07 mouth. ity of (COLACE 11:23: [place] ORAL) 09 Medical Branch vitamin C Yes 1000mg Take 1,000 [facility] with derrell 6-07 mg by ity of hips 11:23: mouth [place] (VITAMIN C) 09 daily. Medica l 1,000 mg Branch tablet cholecalcif Yes 1000U Take 1,000 [facility] edmar, 6-07 Units by ity of vitamin D3, 11:23: mouth [place] (VITAMIN 09 daily. Medical D3) 1,000 Branch unit tablet CRANBERRY Yes Take by [facility] rs FRUIT 6-07 mouth ity of EXTRACT 11:23: daily. [place] (CRANBERRY 09 Medical ORAL) Branch CALCIUM Yes Take by Univers ORAL 6-07 mouth ity of 11:23: daily. [place] [address] Medical Branch DOCOSAHEXAN Yes 1000mg Take 1,000 [facility] OIC 6-07 mg by ity of ACID/EPA 11:23: mouth [place] (FISH OIL 09 daily. Medical ORAL) Branch BIOTIN ORAL Yes Take by Uni vers 6-07 mouth. ity of 11:23: [place] [address] Medical Branch FOLIC ACID Yes Take by [facility] ers ORAL 6-07 mouth ity of 11:23: daily. [place] [address] Medical Branch MULTIVIT Yes Take by [facility] [place] s &MINERALS/F 6-07 mouth. ity of ERROUS FUM 11:23: [place] ([place] [address] Medical VITAMIN Branch ORAL) METHYLCELLU Yes Univer s LOSE (FIBER 6-07 ity of THERAPY 11:23: [place] MIS) 09 Medical Branch DOCUSATE Yes Take by [facility] s SODIUM 6-07 mouth. ity of (COLACE [...] 6-07 mouth ity of EXTRACT 11:23: daily. [place] ([place]AN[place]Y Medical ORAL) Branch CALCIUM Yes Take by Univers ORAL 6-07 mouth ity of 11:23: daily. [place] Medical Branch DOCOSAHEXAN Yes 1000mg Take 1,000 [facility] OIC 6-07 mg by ity of ACID/EPA 11:23: mouth [place] (FISH OIL 09 daily. Medical ORAL) Branch BIOTIN ORAL Yes Take by Uni vers 6-07 mouth. ity of 11:23: Medical Branch FOLIC ACID Yes Take by Univ ers ORAL 6-07 mouth ity of 11:23: daily. [place] Medical Branch MULTIVIT Yes Take by Univer s &MINERALS/F 6-07 mouth. ity of ERROUS FUM 11:23: [place] (MULTI 09 Medical VITAMIN Branch ORAL) METHYLCELLU Yes Univer s LOSE (FIBER 6-07 ity of THERAPY 11:23: [place] MISC) 09 Medical Branch DOCUSATE Yes Take [...] by ity of vitamin D3, 11:23: mouth [place] (VITAMIN 09 daily. Medical D3) 1,000 Branch unit tablet CRANBERRY Yes Take by Unive rs FRUIT 6-07 mouth ity of EXTRACT 11:23: daily. [place] (CRANBERRY 09 Medical ORAL) Branch CALCIUM Yes Take by Univers ORAL 607 mouth ity of 11:23: daily. [place] Medical Branch DOCOSAHEXAN Yes 1000mg Take 1,000 [facility] OIC 6-07 mg by ity of ACID/EPA 11:23: mouth [place] (FISH OIL 09 daily. Medical ORAL) Branch BIOTIN ORAL Yes Take by Uni vers 607 mouth. ity of 11:23: [place] Medical Branch FOLIC ACID Yes Take by [facility] ers ORAL 6 mouth ity of 11:58: daily. [place] [address] Medical Branch MULTIVIT Yes Take by [facility] [place] s &MINERALS/F 6- mouth. ity of ERROUS FUM 11:58: [place] (MULTI 16 Medical VITAMIN Branch ORAL) METHYLCELLU Yes [facility] s LOSE (FIBER 6- ity of THERAPY 11:58: [place] MIS) Medical Branch DOCUSATE Yes Take by [facility] s SODIUM 6- mouth. ity of (COLACE 11:58: [place] ORAL) Medical Branch vitamin C Yes 1000mg Take 1,000 [facility] with derrell 6-01 mg by ity of hips 11:58: mouth [place] (VITAMIN C) 16 daily. Medica l 1,000 mg Branch tablet cholecalcif Yes 1000U Take 1,000 [facility] edmar, 6-01 Units by ity of vitamin D3, 11:58: mouth [place] (VITAMIN 16 daily. Medical D3) 1,000 Branch unit tablet CRANBERRY Yes Take by [facility] rs FRUIT 6 mouth ity of EXTRACT 11:58: daily. [place] (CRANBERRY 16 Medical ORAL) Branch CALCIUM Yes Take by Univers ORAL 6 mouth ity of 11:58: daily. [place] Medical Branch DOCOSAHEXAN Yes 1000mg Take 1,000 Univers OIC 6-01 mg by ity of ACID/EPA 11:58: mouth [place] (FISH OIL 16 daily. Medical ORAL) Branch BIOTIN ORAL Yes Take by Uni vers 6- mouth. ity of 11:58: [place] [address] Medical Branch metformin Yes [id number] 500mg Take 1 U nivers ER 500 mg 5-31 tablet by ity o f 24 hr 00:00: mouth [place] tablet 00 daily with Medical breakfast. Branch STOP REGULAR METFORMIN. metformin 2021-0 Yes [id number] 500mg Take 1 U nivers ER 500 mg 5-31 tablet by ity o f 24 hr 00:00: mouth [place] tablet 00 daily with Medical breakfast. Branch STOP REGULAR METFORMIN. metformin 2021-0 Yes [id number] 500mg Take 1 U nivers ER 500 mg 5-31 tablet by ity o f 24 hr 00:00: mouth [place] tablet 00 daily with Medical breakfast. Branch STOP REGULAR METFORMIN. metformin 2021-0 Yes [id number] 500mg Take 1 U nivers ER 500 mg 5-31 tablet by ity o f 24 hr 00:00: mouth [place] tablet 00 daily with Medical breakfast. Branch STOP REGULAR METFORMIN. metformin 2021-0 Yes [id number] 500mg Take 1 U nivers ER 500 mg 5-31 tablet by ity o f 24 hr 00:00: mouth [place] tablet 00 daily with Medical breakfast. Branch STOP REGULAR METFORMIN. metformin 2021-0 Yes [id number] 500mg Take 1 U nivers ER 500 mg 5-31 tablet by ity o f 24 hr 00:00: mouth [place] tablet 00 daily with Medical breakfast. Branch STOP REGULAR METFORMIN. metformin 2021-0 Yes [id number] 500mg Take 1 U nivers ER 500 mg 5-31 tablet by ity o f 24 hr 00:00: mouth [place] tablet 00 daily with Medical breakfast. Branch STOP REGULAR METFORMIN. metformin 2021-0 Yes [id number] 500mg Take 1 U nivers ER 500 mg 5-31 tablet by ity o f 24 hr 00:00: mouth [place] tablet 00 daily with Medical breakfast. Branch STOP REGULAR METFORMIN. metformin 2021-0 Yes [id number] 500mg Take 1 U nivers ER 500 mg 5-31 tablet by ity o f 24 hr 00:00: mouth [place] tablet 00 daily with Medical breakfast. Branch STOP REGULAR METFORMIN. metformin 2021-0 Yes [id number] 500mg Take 1 U nivers ER 500 mg 5-31 tablet by ity o f 24 hr 00:00: mouth [place] tablet 00 daily with Medical breakfast. Branch STOP REGULAR METFORMIN. metformin 2021-0 Yes [id number] 500mg Take 1 U nivers ER 500 mg 5-31 tablet by ity o f 24 hr 00:00: mouth [place] tablet 00 daily with Medical breakfast. Branch STOP REGULAR METFORMIN. metformin 2021-0 Yes [id number] 500mg Take 1 U nivers ER 500 mg 5-31 tablet by ity o f 24 hr 00:00: mouth [place] tablet 00 daily with Medical breakfast. Branch STOP REGULAR METFORMIN. metformin 2021-0 Yes [id number] 500mg Take 1 U nivers ER 500 mg 5-31 tablet by ity o f 24 hr 00:00: mouth [place] tablet 00 daily with Medical breakfast. Branch STOP REGULAR METFORMIN. metformin 2021-0 Yes [id number] 500mg Take 1 U nivers ER 500 mg 5-31 tablet by ity o f 24 hr 00:00: mouth [place] tablet 00 daily with Medical breakfast. Branch STOP REGULAR METFORMIN. metformin 2021-0 Yes [id number] 500mg Take 1 U nivers ER 500 mg 5-31 tablet by ity o f 24 hr 00:00: mouth [place] tablet 00 daily with Medical breakfast. Branch STOP REGULAR METFORMIN. metformin 2021-0 Yes [id number] 500mg Take 1 U nivers ER 500 mg 5-31 tablet by ity o f 24 hr 00:00: mouth [place] tablet 00 daily with Medical breakfast. Branch STOP REGULAR METFORMIN. metformin 2021-0 Yes [id number] 500mg Take 1 U nivers ER 500 mg 5-31 tablet by [facility] f 24 hr 00:00: mouth [place] tablet 00 daily with Medical breakfast. Branch STOP REGULAR METFORMIN. metformin 2021-0 Yes [id number] 500mg Take 1 [facility] 500 mg 5-31 tablet by [facility] f 24 hr 00:00: mouth [place] tablet 00 daily with Medical breakfast. Branch STOP REGULAR METFORMIN. metformin 2021-0 Yes [id number] 500mg Take 1 [facility] 500 mg 5-31 tablet by [facility] f 24 hr 00:00: mouth [place] tablet 00 daily with Medical breakfast. Branch STOP REGULAR METFORMIN. metformin 2021-0 Yes [id number] 500mg Take 1 [facility] 500 mg 5-31 tablet by [facility] f 24 hr 00:00: mouth [place] tablet 00 daily with Medical breakfast. Branch STOP REGULAR METFORMIN. metformin 2021-0 Yes [id number] 500mg Take 1 [facility] 500 mg 5-31 tablet by [facility] f 24 hr 00:00: mouth [place] tablet 00 daily with Medical breakfast. Branch STOP REGULAR METFORMIN. metformin 2021-0 Yes [id number] 500mg Take 1 [facility] 500 mg 5-31 tablet by [facility] f 24 hr 00:00: mouth [place] tablet 00 daily with Medical breakfast. Branch STOP REGULAR METFORMIN. metformin 2021-0 Yes [id number] 500mg Take 1 [facility] 500 mg 5-31 tablet by [facility] f 24 hr 00:00: mouth [place] tablet 00 daily with Medical breakfast. Branch STOP REGULAR METFORMIN. metformin 2021-0 Yes [id number] 500mg Take 1 [facility] 500 mg 5-31 tablet by [facility] f 24 hr 00:00: mouth [place] tablet 00 daily with Medical breakfast. Branch STOP REGULAR METFORMIN. metformin 2021-0 Yes [id number] 500mg Take 1 [facility] 500 mg 5-31 tablet by [facility] o f 24 hr 00:00: mouth [place] tablet 00 daily with Medical breakfast. Branch STOP REGULAR METFORMIN. metformin 2021-0 Yes [id number] 500mg Take 1 [facility] 500 mg 5-31 tablet by [facility] o f 24 hr 00:00: mouth [place] tablet 00 daily with Medical breakfast. Branch STOP REGULAR METFORMIN. metformin 2021-0 Yes [id number] 500mg Take 1 [facility] 500 mg 5-31 tablet by [facility] o f 24 hr 00:00: mouth [place] tablet 00 daily with Medical breakfast. Branch STOP REGULAR METFORMIN. metformin 2021-0 Yes [id number] 500mg Take 1 [facility] 500 mg 5-31 tablet by [facility] o f 24 hr 00:00: mouth [place] tablet 00 daily with Medical breakfast. Branch STOP REGULAR METFORMIN. metformin 2021-0 Yes [id number] 500mg Take 1 [facility] 500 mg 5-31 tablet by [facility] o f 24 hr 00:00: mouth [place] tablet 00 daily with Medical breakfast. Branch STOP REGULAR METFORMIN. metformin 2021-0 Yes [id number] 500mg Take 1 [facility] 500 mg 5-31 tablet by [facility] o f 24 hr 00:00: mouth [place] tablet 00 daily with Medical breakfast. Branch STOP REGULAR METFORMIN. metformin 2021-0 Yes [id number] 500mg Take 1 [facility] 500 mg 5-31 tablet by [facility] o f 24 hr 00:00: mouth [place] tablet 00 daily with Medical breakfast. Branch STOP REGULAR METFORMIN. metformin 2021-0 Yes [id number] 500mg Take 1 [facility] 500 mg 5-31 tablet by [facility] o f 24 hr 00:00: mouth [place] tablet 00 daily with Medical breakfast. Branch STOP REGULAR METFORMIN. metformin 2021-0 Yes [id number] 500mg Take 1 [facility] 500 mg 5-31 tablet by [facility] f 24 hr 00:00: mouth [place] tablet 00 daily with Medical breakfast. Branch STOP REGULAR METFORMIN. ibuprofen 2021-0 Yes [id number] 600mg Take 1 [facility] 600 mg 5-19 [id number] tablet by [facility] tablet 00:00: mouth [place] 00 every 6 Medical (six) Branch hours as needed for Pain (scale 4-6). ibuprofen 2021-0 Yes [id number] 600mg Take 1 [facility] 600 mg 5-19 [id number] tablet by [facility] tablet 00:00: mouth [place] 00 every 6 Medical (six) Branch hours as needed for Pain (scale 4-6). ibuprofen 2021-0 Yes [id number] 600mg Take 1 [facility] 600 mg 5-19 [id number] tablet by [facility] tablet 00:00: mouth [place] 00 every 6 Medical (six) Branch hours as needed for Pain (scale 4-6). ibuprofen 2021-0 Yes [id number] 600mg Take 1 [facility] 600 mg 5-19 [id number] tablet by [facility] tablet 00:00: mouth [place] 00 every 6 Medical (six) Branch hours as needed for Pain (scale 4-6). ibuprofen 2021-0 Yes [id number] 600mg Take 1 [facility] 600 mg 5-19 [id number] tablet by [facility] tablet 00:00: mouth [place] 00 every 6 Medical (six) Branch hours as needed for Pain (scale 4-6). ibuprofen 2021-0 Yes [id number] 600mg Take 1 [facility] 600 mg 5-19 [id number] tablet by [facility] tablet 00:00: mouth [place] 00 every 6 Medical (six) Branch hours as needed for Pain (scale 4-6). ibuprofen 202-0 Yes [id number] 600mg Take 1 [facility] 600 mg 5-19 [id number] tablet by [facility] tablet 00:00: mouth [place] 00 every 6 Medical (six) Branch hours as needed for Pain (scale 4-6). ibuprofen 2-0 Yes [id number] 600mg Take 1 [facility] 600 mg 5-19 [id number] tablet by [facility] tablet 00:00: mouth [place] 00 every 6 Medical (six) Branch hours as needed for Pain (scale 4-6). ibuprofen 2022-0 Yes [id number] 600mg Take 1 [facility] 600 mg 5-19 [id number] tablet by [facility] tablet 00:00: mouth [place] 00 every 6 Medical (six) Branch hours as needed for Pain (scale 4-6). ibuprofen 2022-0 Yes [id number] 600mg Take 1 [facility] 600 mg 5-19 [id number] tablet by [facility] tablet 00:00: mouth [place] 00 every 6 Medical (six) Branch hours as needed for Pain (scale 4-6). ibuprofen 2022-0 Yes [id number] 600mg Take 1 [facility] 600 mg 5-19 [id number] tablet by [facility] tablet 00:00: mouth [place] 00 every 6 Medical (six) Branch hours as needed for Pain (scale 4-6). ibuprofen 2022-0 Yes [id number] 600mg Take 1 [facility] 600 mg 5-19 [id number] tablet by [facility] tablet 00:00: mouth [place] 00 every 6 Medical (six) Branch hours as needed for Pain (scale 4-6). ibuprofen 2022-0 Yes [id number] 600mg Take 1 [facility] 600 mg 5-19 [id number] tablet by [facility] tablet 00:00: mouth [place] 00 every 6 Medical (six) Branch hours as needed for Pain (scale 4-6). ibuprofen 2022-0 Yes [id number] 600mg Take 1 [facility] 600 mg 5-19 [id number] tablet by [facility] tablet 00:00: mouth [place] 00 every 6 Medical (six) Branch hours as needed for Pain (scale 4-6). ibuprofen 2022-0 Yes [id number] 600mg Take 1 [facility] 600 mg 5-19 [id number] tablet by [facility] tablet 00:00: mouth [place] 00 every 6 Medical (six) Branch hours as needed for Pain (scale 4-6). ibuprofen 2022-0 Yes [id number] 600mg Take 1 [facility] 600 mg 5-19 [id number] tablet by [facility] tablet 00:00: mouth [place] 00 every 6 Medical (six) Branch hours as needed for Pain (scale 4-6). ibuprofen 2022-0 Yes [id number] 600mg Take 1 [facility] 600 mg 5-19 [id number] tablet by [facility] tablet 00:00: mouth [place] 00 every 6 Medical (six) Branch hours as needed for Pain (scale 4-6). ibuprofen 2022-0 Yes [id number] 600mg Take 1 [facility] 600 mg 5-19 [id number] tablet by [facility] tablet 00:00: mouth [place] 00 every 6 Medical (six) Branch hours as needed for Pain (scale 4-6). ibuprofen 2022-0 Yes [id number] 600mg Take 1 [facility] 600 mg 5-19 [id number] tablet by [facility] tablet 00:00: mouth [place] 00 every 6 Medical (six) Branch hours as needed for Pain (scale 4-6). ibuprofen 2022-0 Yes [id number] 600mg Take 1 [facility] 600 mg 5-19 [id number] tablet by [facility] tablet 00:00: mouth [place] 00 every 6 Medical (six) Branch hours as needed for Pain (scale 4-6). ibuprofen 2022-0 Yes [id number] 600mg Take 1 [facility] 600 mg 5-19 [id number] tablet by [facility] tablet 00:00: mouth [place] 00 every 6 Medical (six) Branch hours as needed for Pain (scale 4-6). ibuprofen 2022-0 Yes [id number] 600mg Take 1 [facility] 600 mg 5-19 [id number] tablet by [facility] tablet 00:00: mouth [place] 00 every 6 Medical (six) Branch hours as needed for Pain (scale 4-6). ibuprofen 2022-0 Yes [id number] 600mg Take 1 [facility] 600 mg 5-19 [id number] tablet by [facility] tablet 00:00: mouth [place] 00 every 6 Medical (six) Branch hours as needed for Pain (scale 4-6). ibuprofen 2022-0 Yes [id number] 600mg Take 1 [facility] 600 mg 5-19 [id number] tablet by [facility] of tablet 00:00: mouth [place] 00 every 6 Medical (six) Branch hours as needed for Pain (scale 4-6). ibuprofen 2022-0 Yes [id number] 600mg Take 1 [facility] 600 mg 5-19 [id number] tablet by [facility] tablet 00:00: mouth [place] 00 every 6 Medical (six) Branch hours as needed for Pain (scale 4-6). ibuprofen 2022-0 Yes [id number] 600mg Take 1 [facility] 600 mg 5-19 [id number] tablet by [facility] of tablet 00:00: mouth [place] 00 every 6 Medical (six) Branch hours as needed for Pain (scale 4-6). ibuprofen 2022-0 Yes [id number] 600mg Take 1 [facility] 600 mg 5-19 [id number] tablet by [facility] of tablet 00:00: mouth [place] 00 every 6 Medical (six) Branch hours as needed for Pain (scale 4-6). ibuprofen 2022-0 Yes [id number] 600mg Take 1 [facility] 600 mg 5-19 [id number] tablet by [facility] of tablet 00:00: mouth [place] 00 every 6 Medical (six) Branch hours as needed for Pain (scale 4-6). ibuprofen 2022-0 Yes [id number] 600mg Take 1 [facility] 600 mg 5-19 [id number] tablet by [facility] of tablet 00:00: mouth [place] 00 every 6 Medical (six) Branch hours as needed for Pain (scale 4-6). ibuprofen 2022-0 Yes [id number] 600mg Take 1 [facility] 600 mg 5-19 [id number] tablet by [facility] of tablet 00:00: mouth [place] 00 every 6 Medical (six) Branch hours as needed for Pain (scale 4-6). ibuprofen 2-0 Yes [id number] 600mg Take 1 [facility] 600 mg 5-19 [id number] tablet by [facility] of tablet 00:00: mouth [place] 00 every 6 Medical (six) Branch hours as needed for Pain (scale 4-6). ibuprofen 2022-0 Yes [id number] 600mg Take 1 [facility] 600 mg 5-19 [id number] tablet by [facility] of tablet 00:00: mouth [place] 00 every 6 Medical (six) Branch hours as needed for Pain (scale 4-6). ibuprofen 2-0 Yes [id number] 600mg Take 1 [facility] 600 mg 5-19 [id number] tablet by [facility] of tablet 00:00: mouth [place] 00 every 6 Medical (six) Branch hours as needed for Pain (scale 4-6). topiramate 2022-0 Yes [id number] 50mg Take 2 [facility] 25 mg 5-16 tablets by [facility] of tablet 00:00: mouth 2 00 (two) Medical times Branch daily. topiramate 2022-0 Yes [id number] 50mg Take 2 [facility] 25 mg 5-16 tablets by [facility] of tablet 00:00: mouth 2 (two) Medical times Branch daily. topiramate 2022-0 Yes [id number] 50mg Take 2 [facility] 25 mg 5-16 tablets by [facility] of tablet 00:00: mouth 2 (two) Medical times Branch daily. topiramate 2022-0 Yes [id number] 50mg Take 2 [facility] 25 mg 5-16 tablets by [facility] of tablet 00:00: mouth (two) Medical times Branch daily. topiramate 2-0 Yes [id number] 50mg Take 2 [facility] 25 mg 5-16 tablets by [facility] of tablet 00:00: mouth (two) Medical times Branch daily. topiramate 2-0 Yes [id number] 50mg Take 2 [facility] 25 mg 5-16 tablets by [facility] of tablet 00:00: mouth (two) Medical times Branch daily. topiramate 2021-0 Yes [id number] 50mg Take 2 [facility] 25 mg 5-16 tablets by [facility] of tablet 00:00: mouth (two) Medical times Branch daily. topiramate 2021-0 Yes [id number] 50mg Take 2 [facility] 25 mg 5-16 tablets by [facility] of tablet 00:00: mouth (two) Medical times Branch daily. topiramate 2021-0 Yes [id number] 50mg Take 2 [facility] 25 mg 5-16 tablets by [facility] of tablet 00:00: mouth (two) Medical times Branch daily. SUMAtriptan 2021-0 Yes [id number] 50mg Take 1 [facility] 50 mg 5-16 tablet by [facility] of tablet 00:00: mouth as [place] 00 needed for Medical Migraine. Branch topiramate 2021-0 Yes [id number] 50mg Take 2 [facility] 25 mg 5-16 tablets by [facility] of tablet 00:00: mouth (two) Medical times Branch daily. SUMAtriptan 2-0 Yes [id number] 50mg Take 1 [facility] 50 mg 5-16 tablet by [facility] of tablet 00:00: mouth as [place] 00 needed for Medical Migraine. Branch topiramate 2-0 Yes [id number] 50mg Take 2 [facility] 25 mg 5-16 tablets by [facility] of tablet 00:00: mouth 2 (two) Medical times Branch daily. SUMAtriptan 2022-0 Yes [id number] 50mg Take 1 [facility] 50 mg 5-16 tablet by [facility] of tablet 00:00: mouth as [place] 00 needed for Medical Migraine. Branch topiramate 2-0 Yes [id number] 50mg Take 2 [facility] 25 mg 5-16 tablets by [facility] of tablet 00:00: mouth (two) Medical times Branch daily. SUMAtriptan 2-0 Yes [id number] 50mg Take 1 [facility] 50 mg 5-16 tablet by [facility] of tablet 00:00: mouth as 00 needed for Medical Migraine. Branch topiramate 2-0 Yes [id number] 50mg Take 2 [facility] 25 mg 5-16 tablets by [facility] of tablet 00:00: mouth (two) Medical times Branch daily. SUMAtriptan 2-0 Yes [id number] 50mg Take 1 [facility] 50 mg 5-16 tablet by [facility] of tablet 00:00: mouth [place] 00 needed for Medical Migraine. Branch topiramate 2-0 Yes [id number] 50mg Take 2 [facility] 25 mg 5-16 tablets by [facility] of tablet 00:00: mouth (two) Medical times Branch daily. SUMAtriptan 2-0 Yes [id number] 50mg Take 1 [facility] 50 mg 5-16 tablet by [facility] of tablet 00:00: mouth as needed for Medical Migraine. Branch topiramate 2-0 Yes [id number] 50mg Take 2 [facility] 25 mg 5-16 tablets by [facility] of tablet 00:00: mouth (two) Medical times Branch daily. topiramate 2-0 Yes [id number] 50mg Take 2 [facility] 25 mg 5-16 tablets by [facility] of tablet 00:00: mouth (two) Medical times Branch daily. topiramate 2-0 Yes [id number] 50mg Take 2 [facility] 25 mg 5-16 tablets by [facility] of tablet 00:00: mouth (two) Medical times Branch daily. topiramate 2-0 Yes [id number] 50mg Take 2 [facility] 25 mg 5-16 tablets by [facility] of tablet 00:00: mouth (two) Medical times Branch daily. topiramate 2022-0 Yes [id number] 50mg Take 2 [facility] 25 mg 5-16 tablets by [facility] of tablet 00:00: mouth 2 (two) Medical times Branch daily. topiramate 2022-0 Yes [id number] 50mg Take 2 [facility] 25 mg 5-16 tablets by [facility] of tablet 00:00: mouth 2 [place] 00 (two) Medical times Branch daily. topiramate 2021- No [id number] 50mg Take 2 [facility] 25 mg 5-16 09-01 tablets by [facility] of tablet 00:00: 00:00 mouth 2 [place] 00 :00 (two) Medical times [place] daily. SUMAtriptan 2021- No [id number] 50mg Take 1 [facility] 50 mg 5-16 [...] PadM 5-08 Dose to [facility] of 00:00: [facility] [place] 00 before Medical meals. Branch ALCOHOL [...] PadM 5-08 Dose to [facility] of 00:00: [facility] [place] 00 before Medical meals. Branch ALCOHOL [...] PadM 5-08 Dose to [facility] of 00:00: [facility] [place] 00 before Medical meals. Branch ALCOHOL [...] 00 before Medical meals. Branch pregabalin Yes [id number] 150mg Take 1 [facility] 150 mg 4-29 capsule by [facility] of capsule 00:00: mouth 3 [place] 00 (three) Medical times Branch daily. busPIRone Yes [id number] 20mg Take 2 [facility] [place] 10 mg 4-29 tablets by [facility] of tablet 00:00: mouth (two) Medical times Branch daily. citalopram 2021-0 Yes [id number] 40mg Take 1 [facility] 40 mg 4-29 tablet by [facility] of tablet 00:00: mouth daily. Medical Branch pregabalin 2021-0 Yes [id number] 150mg Take 1 [facility] 150 mg 4-29 capsule by [facility] of capsule 00:00: mouth 3 (three) Medical times Branch daily. busPIRone 2021-0 Yes [id number] 20mg Take 2 [facility] [place] 10 mg 4-29 tablets by [facility] of tablet 00:00: mouth (two) Medical times Branch daily. citalopram 2021-0 Yes [id number] 40mg Take 1 [facility] 40 mg 4-29 tablet by [facility] of tablet 00:00: mouth daily. Medical Branch pregabalin 2021-0 Yes [id number] 150mg Take 1 [facility] 150 mg 4-29 capsule by [facility] of capsule 00:00: mouth (three) Medical times Branch daily. busPIRone 2021-0 Yes [id number] 20mg Take 2 [facility] [place] 10 mg 4-29 tablets by [facility] of tablet 00:00: mouth (two) Medical times Branch daily. citalopram 2021-0 Yes [id number] 40mg Take 1 [facility] 40 mg 4-29 tablet by [facility] of tablet 00:00: mouth daily. Medical Branch pregabalin 2021-0 Yes [id number] 150mg Take 1 [facility] 150 mg 4-29 capsule by [facility] of capsule 00:00: mouth (three) Medical times Branch daily. busPIRone 2021-0 Yes [id number] 20mg Take 2 [facility] [place] 10 mg 4-29 tablets by [facility] of tablet 00:00: mouth (two) Medical times Branch daily. citalopram 2021-0 Yes [id number] 40mg Take 1 [facility] 40 mg 4-29 tablet by [facility] of tablet 00:00: mouth 00 daily. Medical Branch pregabalin 2021-0 Yes [id number] 150mg Take 1 [facility] 150 mg 4-29 capsule by [facility] of capsule 00:00: mouth 3 (three) Medical times Branch daily. busPIRone 2021-0 Yes [id number] 20mg Take 2 [facility] [place] 10 mg 4-29 tablets by [facility] of tablet 00:00: mouth (two) Medical times Branch daily. citalopram 2021-0 Yes [id number] 40mg Take 1 [facility] 40 mg 4-29 tablet by [facility] of tablet 00:00: mouth daily. Medical Branch pregabalin 2021-0 Yes [id number] 150mg Take 1 [facility] 150 mg 4-29 capsule by [facility] of capsule 00:00: mouth 3 (three) Medical times Branch daily. busPIRone 2021-0 Yes [id number] 20mg Take 2 [facility] [place] 10 mg 4-29 tablets by [facility] of tablet 00:00: mouth (two) Medical times Branch daily. citalopram 2021-0 Yes [id number] 40mg Take 1 [facility] 40 mg 4-29 tablet by [facility] of tablet 00:00: mouth daily. Medical Branch pregabalin 2021-0 Yes [id number] 150mg Take 1 [facility] 150 mg 4-29 capsule by ity of capsule 00:00: mouth (three) Medical times Branch daily. busPIRone 2021-0 Yes [id number] 20mg Take 2 [facility] [place] 10 mg 4-29 tablets by [facility] of tablet 00:00: mouth (two) Medical times Branch daily. citalopram 2021-0 Yes [id number] 40mg Take 1 [facility] 40 mg 4-29 tablet by [facility] of tablet 00:00: mouth daily. Medical Branch pregabalin 2021-0 Yes [id number] 150mg Take 1 [facility] 150 mg 4-29 capsule by [facility] of capsule 00:00: mouth (three) Medical times Branch daily. busPIRone 2-0 Yes [id number] 20mg Take 2 [facility] [place] 10 mg 4-29 tablets by [facility] of tablet 00:00: mouth (two) Medical times Branch daily. citalopram 2021-0 Yes [id number] 40mg Take 1 [facility] 40 mg 4-29 tablet by [facility] of tablet 00:00: mouth daily. Medical Branch pregabalin 2022-0 Yes [id number] 150mg Take 1 [facility] 150 mg 4-29 capsule by ity of capsule 00:00: mouth 3 (three) Medical times Branch daily. busPIRone 2021-0 Yes [id number] 20mg Take 2 [facility] [place] 10 mg 4-29 tablets by [facility] of tablet 00:00: mouth (two) Medical times Branch daily. citalopram 2021-0 Yes [id number] 40mg Take 1 [facility] 40 mg 4-29 tablet by [facility] of tablet 00:00: mouth daily. Medical Branch pregabalin 2021-0 Yes [id number] 150mg Take 1 [facility] 150 mg 4-29 capsule by ity of capsule 00:00: mouth (three) Medical times Branch daily. busPIRone 2021-0 Yes [id number] 20mg Take 2 [facility] [place] 10 mg 4-29 tablets by [facility] of tablet 00:00: mouth (two) Medical times Branch daily. citalopram 2021-0 Yes [id number] 40mg Take 1 [facility] 40 mg 4-29 tablet by [facility] of tablet 00:00: mouth daily. Medical Branch pregabalin 2021-0 Yes [id number] 150mg Take 1 [facility] 150 mg 4-29 capsule by it[facility] of capsule 00:00: mouth (three) Medical times Branch daily. busPIRone 2021-0 Yes [id number] 20mg Take 2 [facility] [place] 10 mg 4-29 tablets by [facility] of tablet 00:00: mouth (two) Medical times Branch daily. citalopram 2021-0 Yes [id number] 40mg Take 1 [facility] 40 mg 4-29 tablet by [facility] of tablet 00:00: mouth daily. Medical Branch pregabalin 2021-0 Yes [id number] 150mg Take 1 [facility] 150 mg 4-29 capsule by [facility] of capsule 00:00: mouth 3 (three) Medical times Branch daily. busPIRone 2021-0 Yes [id number] 20mg Take 2 [facility] [place] 10 mg 4-29 tablets by [facility] of tablet 00:00: mouth (two) Medical times Branch daily. citalopram 2021-0 Yes [id number] 40mg Take 1 [facility] 40 mg 4-29 tablet by [facility] of tablet 00:00: mouth 00 daily. Medical Branch pregabalin 2021-0 Yes [id number] 150mg Take 1 [facility] 150 mg 4-29 capsule by [facility] of capsule 00:00: mouth 3 (three) Medical times Branch daily. busPIRone 2021-0 Yes [id number] 20mg Take 2 [facility] [place] 10 mg 4-29 tablets by [facility] of tablet 00:00: mouth (two) Medical times Branch daily. citalopram 2021-0 Yes [id number] 40mg Take 1 [facility] 40 mg 4-29 tablet by [facility] of tablet 00:00: mouth 00 daily. Medical Branch pregabalin 2021-0 Yes [id number] 150mg Take 1 [facility] 150 mg 4-29 capsule by it[facility] of capsule 00:00: mouth (three) Medical times Branch daily. busPIRone 2021-0 Yes [id number] 20mg Take 2 [facility] [place] 10 mg 4-29 tablets by [facility] of tablet 00:00: mouth (two) Medical times Branch daily. citalopram 2021-0 Yes [id number] 40mg Take 1 [facility] 40 mg 4-29 tablet by [facility] of tablet 00:00: mouth daily. Medical Branch pregabalin 2021-0 Yes [id number] 150mg Take 1 [facility] 150 mg 4-29 capsule by ity of capsule 00:00: mouth (three) Medical times Branch daily. busPIRone 2021-0 Yes [id number] 20mg Take 2 [facility] [place] 10 mg 4-29 tablets by [facility] of tablet 00:00: mouth (two) Medical times Branch daily. citalopram 2021-0 Yes [id number] 40mg Take 1 [facility] 40 mg 4-29 tablet by [facility] of tablet 00:00: mouth 00 daily. Medical Branch pregabalin 2021-0 Yes [id number] 150mg Take 1 [facility] 150 mg 4-29 capsule by [facility] of capsule 00:00: mouth 3 (three) Medical times Branch daily. busPIRone 2021-0 Yes [id number] 20mg Take 2 [facility] [place] 10 mg 4-29 tablets by [facility] of tablet 00:00: mouth (two) Medical times Branch daily. citalopram 2021-0 Yes [id number] 40mg Take 1 [facility] 40 mg 4-29 tablet by [facility] of tablet 00:00: mouth 00 daily. Medical Branch pregabalin 2021-0 Yes [id number] 150mg Take 1 [facility] 150 mg 4-29 capsule by [facility] of capsule 00:00: mouth 3 (three) Medical times Branch daily. busPIRone 2021-0 Yes [id number] 20mg Take 2 [facility] [place] 10 mg 4-29 tablets by [facility] of tablet 00:00: mouth (two) Medical times Branch daily. citalopram 2021-0 Yes [id number] 40mg Take 1 [facility] 40 mg 4-29 tablet by [facility] of tablet 00:00: mouth 00 daily. Medical Branch pregabalin 2021-0 Yes [id number] 150mg Take 1 [facility] 150 mg 4-29 capsule by ity of capsule 00:00: mouth (three) Medical times Branch daily. busPIRone 2021-0 Yes [id number] 20mg Take 2 [facility] [place] 10 mg 4-29 tablets by [facility] of tablet 00:00: mouth (two) Medical times Branch daily. citalopram 2021-0 Yes [id number] 40mg Take 1 [facility] 40 mg 4-29 tablet by [facility] of tablet 00:00: mouth 00 daily. Medical Branch pregabalin 2021-0 Yes [id number] 150mg Take 1 [facility] 150 mg 4-29 capsule by ity of capsule 00:00: mouth 3 (three) Medical times Branch daily. busPIRone 2021-0 Yes [id number] 20mg Take 2 [facility] [place] 10 mg 4-29 tablets by [facility] of tablet 00:00: mouth (two) Medical times Branch daily. citalopram 2-0 Yes [id number] 40mg Take 1 [facility] 40 mg 4-29 tablet by [facility] of tablet 00:00: mouth 00 daily. Medical Branch pregabalin 2021-0 Yes [id number] 150mg Take 1 [facility] 150 mg 4-29 capsule by ity of capsule 00:00: mouth 3 [place] 00 (three) Medical times Branch daily. busPIRone 2021-0 Yes [id number] 20mg Take 2 [facility] [place] 10 mg 4-29 tablets by [facility] of tablet 00:00: mouth (two) Medical times Branch daily. citalopram 2021-0 Yes [id number] 40mg Take 1 [facility] 40 mg 4-29 tablet by [facility] of tablet 00:00: mouth daily. Medical Branch pregabalin 2021-0 Yes [id number] 150mg Take 1 [facility] 150 mg 4-29 capsule by [facility]y of capsule 00:00: mouth 3 (three) Medical times Branch daily. busPIRone 2021-0 Yes [id number] 20mg Take 2 [facility] [place] 10 mg 4-29 tablets by [facility] of tablet 00:00: mouth (two) Medical times Branch daily. citalopram 2021-0 Yes [id number] 40mg Take 1 [facility] 40 mg 4-29 tablet by [facility] of tablet 00:00: mouth daily. Medical Branch pregabalin 2021-0 Yes [id number] 150mg Take 1 [facility] 150 mg 4-29 capsule by ity of capsule 00:00: mouth (three) Medical times Branch daily. busPIRone 2021-0 Yes [id number] 20mg Take 2 [facility] [place] 10 mg 4-29 tablets by [facility] of tablet 00:00: mouth (two) Medical times Branch daily. citalopram 2021-0 Yes [id number] 40mg Take 1 [facility] 40 mg 4-29 tablet by [facility] of tablet 00:00: mouth daily. Medical Branch pregabalin 2021-0 Yes [id number] 150mg Take 1 [facility] 150 mg 4-29 capsule by ity of capsule 00:00: mouth (three) Medical times Branch daily. busPIRone 2-0 Yes [id number] 20mg Take 2 [facility] [place] 10 mg 4-29 tablets by [facility] of tablet 00:00: mouth (two) Medical times Branch daily. citalopram 2-0 Yes [id number] 40mg Take 1 [facility] 40 mg 4-29 tablet by [facility] of tablet 00:00: mouth daily. Medical Branch pregabalin 2021-0 Yes [id number] 150mg Take 1 [facility] 150 mg 4-29 capsule by [facility]y of capsule 00:00: mouth 3 (three) Medical times Branch daily. busPIRone 2021-0 Yes [id number] 20mg Take 2 [facility] [place] 10 mg 4-29 tablets by [facility] of tablet 00:00: mouth (two) Medical times Branch daily. citalopram 2021-0 Yes [id number] 40mg Take 1 [facility] 40 mg 4-29 tablet by [facility] of tablet 00:00: mouth 00 daily. Medical Branch pregabalin 2021-0 Yes [id number] 150mg Take 1 [facility] 150 mg 4-29 capsule by [facility]y of capsule 00:00: mouth (three) Medical times Branch daily. busPIRone 2021-0 Yes [id number] 20mg Take 2 [facility] [place] 10 mg 4-29 tablets by [facility] of tablet 00:00: mouth (two) Medical times Branch daily. citalopram 2021-0 Yes [id number] 40mg Take 1 [facility] 40 mg 4-29 tablet by [facility] of tablet 00:00: mouth daily. Medical Branch pregabalin 2021-0 Yes [id number] 150mg Take 1 [facility] 150 mg 4-29 capsule by [facility]y of capsule 00:00: mouth (three) Medical times Branch daily. busPIRone 2021-0 Yes [id number] 20mg Take 2 [facility] [place] 10 mg 4-29 tablets by [facility] of tablet 00:00: mouth (two) Medical times Branch daily. citalopram 2021-0 Yes [id number] 40mg Take 1 [facility] 40 mg 4-29 tablet by [facility] of tablet 00:00: mouth 00 daily. Medical Branch pregabalin 2021-0 Yes [id number] 150mg Take 1 [facility] 150 mg 4-29 capsule by ity of capsule 00:00: mouth 3 (three) Medical times Branch daily. busPIRone 2021-0 Yes [id number] 20mg Take 2 [facility] [place] 10 mg 4-29 tablets by [facility] of tablet 00:00: mouth (two) Medical times Branch daily. citalopram 2021-0 Yes [id number] 40mg Take 1 [facility] nivers 40 mg 4-29 tablet by [facility]y of tablet 00:00: mouth 00 daily. [facility] pregabalin 2021-0 Yes [id number] 150mg Take 1 [facility] 150 mg 4-29 capsule by [facility] of capsule 00:00: mouth 3 (three) Medical times Branch daily. busPIRone 2021-0 Yes [id number] 20mg Take 2 [facility] [place] 10 mg 4-29 tablets by ity of tablet 00:00: mouth (two) Medical times Branch daily. citalopram 2021-0 Yes [id number] 40mg Take 1 [facility] nivers 40 mg 4-29 tablet by ity of tablet 00:00: mouth 00 daily. [facility] pregabalin 2021-0 Yes [id number] 150mg Take 1 [facility] 150 mg 4-29 capsule by [facility]y of capsule 00:00: mouth (three) Medical times Branch daily. busPIRone 2021-0 Yes [id number] 20mg Take 2 [facility] [place] 10 mg 4-29 tablets by [facility]y of tablet 00:00: mouth (two) Medical times Branch daily. citalopram 2021-0 Yes [id number] 40mg Take 1 [facility] nivers 40 mg 4-29 tablet by ity of tablet 00:00: mouth daily. [facility] pregabalin 2021-0 Yes [id number] 150mg Take 1 [facility] 150 mg 4-29 capsule by [facility]y of capsule 00:00: mouth (three) Medical times Branch daily. busPIRone 2021-0 Yes [id number] 20mg Take 2 [facility] [place] 10 mg 4-29 tablets by ity of tablet 00:00: mouth (two) Medical times Branch daily. citalopram 2021-0 Yes [id number] 40mg Take 1 [facility] n[facility] 40 mg 4-29 tablet by ity of tablet 00:00: mouth 00 daily. [facility] pregabalin 2021-0 Yes [id number] 150mg Take 1 [facility] 150 mg 4-29 capsule by [facility]y of capsule 00:00: mouth 3 (three) Medical times Branch daily. busPIRone 2021-0 Yes [id number] 20mg Take 2 [facility] [place] 10 mg 4-29 tablets by ity of tablet 00:00: mouth 2 (two) Medical times Branch daily. citalopram 2021-0 Yes [id number] 40mg Take 1 [facility] nivers 40 mg 4-29 tablet by ity of tablet 00:00: mouth 00 daily. [facility] pregabalin 2021-0 Yes [id number] 150mg Take 1 [facility] 150 mg 4-29 capsule by ity of capsule 00:00: mouth 3 (three) Medical times Branch daily. busPIRone 2021-0 Yes [id number] 20mg Take 2 [facility] [place] 10 mg 4-29 tablets by ity of tablet 00:00: mouth 2 (two) Medical times Branch daily. citalopram 2021-0 Yes [id number] 40mg Take 1 [facility] 40 mg 4-29 tablet by [facility]y of tablet 00:00: mouth 00 daily. [facility] pregabalin 2021-0 Yes [id number] 150mg Take 1 [facility] 150 mg 4-29 capsule by ity of capsule 00:00: mouth 3 (three) Medical times Branch daily. busPIRone 2021-0 Yes [id number] 20mg Take 2 [facility] [place] 10 mg 4-29 tablets by ity of tablet 00:00: mouth 2 (two) Medical times Branch daily. citalopram 2021-0 Yes [id number] 40mg Take 1 [facility] n[facility] 40 mg 4-29 tablet by ity of tablet 00:00: mouth [place] 00 daily. [facility] pantoprazol 2021-0 Yes [id number] 40mg Take 1 [facility] e 40 mg EC 4-04 tablet by ity of tablet 00:00: mouth 00 daily. [facility] pantoprazol 2021-0 Yes [id number] 40mg Take 1 [facility] e 40 mg EC 4-04 tablet by ity of tablet 00:00: mouth [place] 00 daily. [facility] pantoprazol 2021-0 Yes [id number] 40mg Take 1 [facility] e 40 mg EC 4-04 tablet by ity of tablet 00:00: mouth [place] 00 daily. [facility] pantoprazol 2021-0 Yes [id number] 40mg Take 1 [facility] e 40 mg EC 4-04 tablet by ity of tablet 00:00: mouth [place] 00 daily. [facility] pantoprazol 2021-0 Yes [id number] 40mg Take 1 [facility] e 40 mg EC 4-04 tablet by ity of tablet 00:00: mouth [place] 00 daily. [facility] pantoprazol 2021-0 Yes [id number] 40mg Take 1 [facility] e 40 mg EC 4-04 tablet by ity of tablet 00:00: mouth [place] 00 daily. [facility] pantoprazol Yes [id number] 40mg Take 1 [facility] e 40 mg EC 4-04 tablet by ity of tablet 00:00: mouth [place] 00 daily. [facility] pantoprazol Yes [id number] 40mg Take 1 [facility] e 40 mg EC 4-04 tablet by ity of tablet 00:00: mouth [place] 00 daily. [facility] pantoprazol Yes [id number] 40mg Take 1 [facility] e 40 mg EC 4-04 tablet by ity of tablet 00:00: mouth [place] 00 daily. [facility] pantoprazol Yes [id number] 40mg Take 1 [facility] e 40 mg EC 4-04 tablet by ity of tablet 00:00: mouth [place] 00 daily. [facility] pantoprazol Yes [id number] 40mg Take 1 [facility] e 40 mg EC 4-04 tablet by ity of tablet 00:00: mouth [place] 00 daily. [facility] pantoprazol Yes [id number] 40mg Take 1 [facility] e 40 mg EC 4-04 tablet by ity of tablet 00:00: mouth [place] 00 daily. [facility] pantoprazol Yes [id number] 40mg Take 1 [facility] e 40 mg EC 4-04 tablet by ity of tablet 00:00: mouth [place] 00 daily. [facility] pantoprazol 2021- Yes [id number] 40mg Take 1 [facility] e 40 mg EC 4-04 tablet by ity of tablet 00:00: mouth [place] 00 daily. [facility] pantoprazol 2021-0 Yes [id number] 40mg Take 1 [facility] e 40 mg EC 4-04 tablet by ity of tablet 00:00: mouth [place] 00 daily. [facility] pantoprazol 2021-0 Yes [id number] 40mg Take 1 [facility] e 40 mg EC 4-04 tablet by ity of tablet 00:00: mouth [place] 00 daily. [facility] pantoprazol 2021- Yes [id number] 40mg Take 1 [facility] e 40 mg EC 4-04 tablet by ity of tablet 00:00: mouth [place] 00 daily. [facility] pantoprazol 2021-0 Yes [id number] 40mg Take 1 [facility] e 40 mg EC 4-04 tablet by ity of tablet 00:00: mouth [place] 00 daily. [facility] pantoprazol 2021-0 Yes [id number] 40mg Take 1 [facility] e 40 mg EC 4-04 tablet by ity of tablet 00:00: mouth [place] 00 daily. [facility] pantoprazol 2021-0 Yes [id number] 40mg Take 1 [facility] e 40 mg EC 4-04 tablet by ity of tablet 00:00: mouth [place] 00 daily. [facility] pantoprazol 2021-0 Yes [id number] 40mg Take 1 [facility] e 40 mg EC 4-04 tablet by ity of tablet 00:00: mouth [place] 00 daily. [facility] pantoprazol 2021- Yes [id number] 40mg Take 1 [facility] e 40 mg EC 4-04 tablet by ity of tablet 00:00: mouth [place] 00 daily. [facility] pantoprazol 2021-0 Yes [id number] 40mg Take 1 [facility] e 40 mg EC 4-04 tablet by ity of tablet 00:00: mouth [place] 00 daily. [facility] pantoprazol 2021-0 Yes [id number] 40mg Take 1 [facility] e 40 mg EC 4-04 tablet by ity of tablet 00:00: mouth [place] 00 daily. [facility] pantoprazol 2021-0 Yes [id number] 40mg Take 1 [facility] e 40 mg EC 4-04 tablet by ity of tablet 00:00: mouth [place] 00 daily. [facility] pantoprazol 2021-0 Yes [id number] 40mg Take 1 [facility] e 40 mg EC 4-04 tablet by ity of tablet 00:00: mouth [place] 00 daily. [facility] pantoprazol 2021-0 Yes [id number] 40mg Take 1 [facility] e 40 mg EC 4-04 tablet by ity of tablet 00:00: mouth [place] 00 daily. [facility] pantoprazol 2021-0 Yes [id number] 40mg Take 1 [facility] e 40 mg EC 4-04 tablet by ity of tablet 00:00: mouth [place] 00 daily. [facility] pantoprazol 2021-0 Yes [id number] 40mg Take 1 [facility] e 40 mg EC 4-04 tablet by ity of tablet 00:00: mouth [place] 00 daily. [facility] pantoprazol 2021-0 Yes [id number] 40mg Take 1 [facility] e 40 mg EC 4-04 tablet by ity of tablet 00:00: mouth [place] 00 daily. [facility] pantoprazol 2021-0 2- No [id number] 40mg Take 1 [facility] e 40 mg EC 4-04 16 tablet by ity of tablet 00:00: 00:00 mouth [place] 00 :00 daily. Medical [facility] pantoprazol 2021-0 2- No [id number] 40mg Take 1 [facility] e 40 mg EC 4-16 tablet by ity of tablet 00:00: 00:00 mouth [place] 00 :00 daily. Medical Branch Blood-Gluco 2-0 Yes [id number] Use twice [facility] se Meter 3-08 a day for ity of (ONETOUCH 00:00: ICD [place] VERIO FLEX E11.65 Medical START) Kit Branch Blood-Gluco 2-0 Yes [id number] Use twice [facility] se Meter 3-08 a day for ity of (ONETOUCH 00:00: ICD [place] VERIO FLEX E11.65 Medical START) Kit Branch Blood-Gluco 2-0 Yes [id number] Use twice [facility] se Meter 3-08 a day for ity of (ONETOUCH 00:00: ICD [place] VERIO FLEX E11.65 Medical START) Kit Branch Blood-Gluco 2-0 Yes [id number] Use twice [facility] se Meter 3-08 a day for ity of (ONETOUCH 00:00: ICD [place] VERIO FLEX E11.65 Medical START) Kit Branch Blood-Gluco 2-0 Yes [id number] Use twice [facility] se Meter 3-08 a day for ity of (ONETOUCH 00:00: ICD [place] VERIO FLEX E11.65 Medical START) Kit Branch Blood-Gluco 2022-0 Yes [id number] Use twice [facility] se Meter 3-08 a day for ity of (ONETOUCH 00:00: ICD CODE [place] VERIO FLEX E11.65 Medical START) Kit Branch Blood-Gluco 2022-0 Yes [id number] Use twice [facility] se Meter 3-08 a day for ity of (ONETOUCH 00:00: ICD [place] VERIO FLEX Medical START) Kit Branch Blood-Gluco 2022-0 Yes [id number] Use twice [facility] se Meter 3-08 a day for ity of (ONETOUCH 00:00: ICD [place] VERIO FLEX Medical START) Kit Branch Blood-Gluco 2022-0 Yes [id number] Use twice [facility] se Meter 3-08 a day for ity of (ONETOUCH 00:00: ICD [place] VERIO FLEX Medical START) Kit Branch Blood-Gluco 2022-0 Yes [id number] Use twice [facility] se M[place] 3-08 a day for ity of (ONETOUCH 00:00: ICD [place] VERIO FLEX Medical START) Kit Branch Blood-Gluco 2022-0 Yes [id number] Use twice [facility] se [place] 3-08 a day for ity of (ONETOUCH 00:00: ICD [place] VERIO FLEX Medical START) Kit Branch Blood-Gluco 2022-0 Yes [id number] Use twice [facility] se Meter 3-08 a day for ity of (ONETOUCH 00:00: ICD CODE [place] VERIO FLEX Medical START) Kit Branch Blood-Gluco 2022-0 Yes [id number] Use twice [facility] se M[place] 3-08 a day for ity of (ONETOUCH 00:00: ICD CODE [place] VERIO FLEX Medical START) Kit Branch Blood-Gluco 2022-0 Yes [id number] Use twice [facility] se M[place] 3-08 a day for ity of (ONETOUCH 00:00: ICD CODE [place] VERIO FLEX Medical START) Kit Branch Blood-Gluco 2022-0 Yes [id number] Use twice [facility] se Meter 3-08 a day for ity of (ONETOUCH 00:00: ICD CODE [place] VERIO FLEX Medical START) Kit Branch Blood-Gluco 2022-0 Yes [id number] Use twice [facility] se Meter 3-08 a day for ity of (ONETOUCH 00:00: ICD CODE [place] VERIO FLEX Medical START) Kit Branch Blood-Gluco 2022-0 Yes [id number] Use twice [facility] se Meter 3-08 a day for ity of (ONETOUCH 00:00: ICD CODE [place] VERIO FLEX E11. Medical START) Kit Branch Blood-Gluco 2022-0 Yes [id number] Use twice [facility] se Meter 3-08 a day for ity of (ONETOUCH 00:00: ICD CODE [place] VERIO FLEX E11 Medical START) Kit Branch Blood-Gluco 2022-0 Yes [id number] Use twice [facility] se Meter 3-08 a day for ity of (ONETOUCH 00:00: ICD CODE [place] VERIO FLEX Medical START) Kit Branch Blood-Gluco 2022-0 Yes [id number] Use twice [facility] se Meter 3-08 a day for ity of (ONETOUCH 00:00: ICD CODE [place] VERIO FLEX Medical START) Kit Branch Blood-Gluco 2022-0 Yes [id number] Use twice [facility] se Meter 3-08 a day for ity of (ONETOUCH 00:00: ICD CODE [place] VERIO FLEX Medical START) Kit Branch Blood-Gluco 2022-0 Yes [id number] Use twice [facility] se Meter 3-08 a day for ity of (ONETOUCH 00:00: ICD CODE [place] VERIO FLEX Medical START) Kit Branch Blood-Gluco 2022-0 Yes [id number] Use twice [facility] se M[place] 3-08 a day for ity of (ONETOUCH 00:00: ICD CODE [place] VERIO FLEX E11.65 Medical START) Kit Branch Blood-Gluco 2022-0 Yes [id number] Use twice [facility] se Meter 3-08 a day for ity of (ONETOUCH 00:00: ICD CODE [place] VERIO FLEX E11.65 Medical START) Kit Branch Blood-Gluco 2022-0 Yes [id number] Use twice [facility] se Meter 3-08 a day for ity of (ONETOUCH 00:00: ICD CODE [place] VERIO FLEX E1165 Medical START) Kit Branch Blood-Gluco 2022-0 Yes [id number] Use twice [facility] se Meter 3-08 a day for ity of (ONETOUCH 00:00: ICD CODE [place] VERIO FLEX 00 E11.65 Medical START) Kit Branch Blood-Gluco 2022-0 Yes [id number] Use twice [facility] se Meter 3-08 a day for ity of (ONETOUCH 00:00: ICD CODE [place] VERIO FLEX Medical START) Kit Branch Blood-Gluco 2022-0 Yes [id number] Use twice [facility] se Meter 3-08 a day for ity of (ONETOUCH 00:00: ICD CODE [place] VERIO FLEX Medical START) Kit Branch Blood-Gluco 2022-0 Yes [id number] Use twice [facility] se Meter 3-08 a day for ity of (ONETOUCH 00:00: ICD CODE [place] VERIO FLEX Medical START) Kit Branch Blood-Gluco 2022-0 Yes [id number] Use twice [facility] se Meter 3-08 a day for ity of (ONETOUCH 00:00: ICD CODE [place] VERIO FLEX Medical START) Kit Branch Blood-Gluco 2022-0 Yes [id number] Use twice [facility] se Meter 3-08 a day for ity of (ONETOUCH 00:00: ICD CODE [place] VERIO FLEX Medical START) Kit Branch Blood-Gluco 2022-0 Yes [id number] Use twice [facility] se Meter 3-08 a day for ity of (ONETOUCH 00:00: ICD CODE [place] VERIO FLEX Medical START) Kit Branch Blood-Gluco 2022-0 Yes [id number] Use twice [facility] se Meter 3-08 a day for ity of (ONETOUCH 00:00: ICD CODE [place] VERIO FLEX Medical START) Kit Branch mirabegron 2022-0 Yes [id number] 50mg Take 1 Univers (MYRBETRIQ) 1-18 tablet by ity of 50 mg 00:00: mouth [place] tablet 00 daily. Medical Branch mirabegron 2022-0 Yes [id number] 50mg Take 1 [facility] (MYRBETRIQ) 1-18 tablet by ity of 50 mg 00:00: mouth [place] tablet 00 daily. Medical Branch mirabegron 2022-0 Yes [id number] 50mg Take 1 [facility] (MYRBETRIQ) 1-18 tablet by ity of 50 mg 00:00: mouth [place] tablet 00 daily. [facility] mirabegron 2021-0 Yes [id number] 50mg Take 1 Univers (MYRBETRIQ) 1-18 tablet by ity of 50 mg 00:00: mouth [place] tablet 00 daily. [facility] mirabegron 2021-0 Yes [id number] 50mg Take 1 Univers (MYRBETRIQ) 1-18 tablet by ity of 50 mg 00:00: mouth [place] tablet 00 daily. [facility] mirabegron 0 Yes [id number] 50mg Take 1 Univers (MYRBETRIQ) 1-18 tablet by ity of 50 mg 00:00: mouth [place] tablet 00 daily. [facility] mirabegron 2021-0 Yes [id number] 50mg Take 1 [facility] (MYRBETRIQ) 1-18 tablet by ity of 50 mg 00:00: mouth [place] tablet 00 daily. [facility] mirabegron 2021-0 Yes [id number] 50mg Take 1 Univers (MYRBETRIQ) 1-18 tablet by ity of 50 mg 00:00: mouth [place] tablet 00 daily. [facility] mirabegron 0 Yes [id number] 50mg Take 1 Univers (MYRBETRIQ) 1-18 tablet by ity of 50 mg 00:00: mouth [place] tablet 00 daily. [facility] mirabegron 0 Yes [id number] 50mg Take 1 Univers (MYRBETRIQ) 1-18 tablet by ity of 50 mg 00:00: mouth [place] tablet 00 daily. [facility] mirabegron 0 Yes [id number] 50mg Take 1 Univers (MYRBETRIQ) 1-18 tablet by ity of 50 mg 00:00: mouth [place] tablet 00 daily. [facility] mirabegron 2021-0 Yes [id number] 50mg Take 1 Univers (MYRBETRIQ) 1-18 tablet by ity of 50 mg 00:00: mouth [place] tablet 00 daily. [facility] mirabegron 2021-0 Yes [id number] 50mg Take 1 Univers (MYRBETRIQ) 1-18 tablet by ity of 50 mg 00:00: mouth [place] tablet 00 daily. [facility] mirabegron 2021-0 Yes [id number] 50mg Take 1 [facility] (MYRBETRIQ) 1-18 tablet by ity of 50 mg 00:00: mouth [place] tablet 00 daily. [facility] mirabegron 0 Yes [id number] 50mg Take 1 [facility] (MYRBETRIQ) 1-18 tablet by ity of 50 mg 00:00: mouth [place] tablet 00 daily. [facility] mirabegron 0 Yes [id number] 50mg Take 1 [facility] (MYRBETRIQ) 1-18 tablet by ity of 50 mg 00:00: mouth [place] tablet 00 daily. [facility] Branch mirabegron 0 Yes [id number] 50mg Take 1 [facility] (MYRBETRIQ) 1-18 tablet by ity of 50 mg 00:00: mouth [place] tablet 00 daily. [facility] mirabegron 0 Yes [id number] 50mg Take 1 Univers (MYRBETRIQ) 1-18 tablet by ity of 50 mg 00:00: mouth [place] tablet 00 daily. [facility] mirabegron 0 Yes [id number] 50mg Take 1 [facility] (MYRBETRIQ) 1-18 tablet by ity of 50 mg 00:00: mouth [place] tablet 00 daily. [facility] mirabegron 0 Yes [id number] 50mg Take 1 [facility] (MYRBETRIQ) 1-18 tablet by ity of 50 mg 00:00: mouth [place] tablet 00 daily. [facility] mirabegron 0 Yes [id number] 50mg Take 1 [facility] (MYRBETRIQ) 1-18 tablet by ity of 50 mg 00:00: mouth [place] tablet 00 daily. [facility] mirabegron 0 Yes [id number] 50mg Take 1 [facility] (MYRBETRIQ) 1-18 tablet by ity of 50 mg 00:00: mouth [place] tablet 00 daily. [facility] mirabegron 0 Yes [id number] 50mg Take 1 [facility] (MYRBETRIQ) 1-18 tablet by ity of 50 mg 00:00: mouth [place] tablet 00 daily. [facility] Branch mirabegron 0 Yes [id number] 50mg Take 1 [facility] (MYRBETRIQ) 1-18 tablet by ity of 50 mg 00:00: mouth [place] tablet 00 daily. [facility] mirabegron 2021-0 Yes [id number] 50mg Take 1 [facility] (MYRBETRIQ) 1-18 tablet by ity of 50 mg 00:00: mouth [place] tablet 00 daily. Medical Branch mirabegron 2021-0 Yes [id number] 50mg Take 1 [facility] (MYRBETRIQ) 1-18 tablet by ity of 50 mg 00:00: mouth [place] tablet 00 daily. Medical Branch mirabegron 2021-0 Yes [id number] 50mg Take 1 [facility] (MYRBETRIQ) 1-18 tablet by ity of 50 mg 00:00: mouth [place] tablet 00 daily. Medical Branch mirabegron 2021-0 Yes [id number] 50mg Take 1 [facility] (MYRBETRIQ) 1-18 tablet by ity of 50 mg 00:00: mouth [place] tablet 00 daily. [facility] Branch mirabegron 0 Yes [id number] 50mg Take 1 [facility] (MYRBETRIQ) 1-18 tablet by ity of 50 mg 00:00: mouth [place] tablet 00 daily. [facility] Branch mirabegron 0 Yes [id number] 50mg Take 1 [facility] (MYRBETRIQ) 1-18 tablet by ity of 50 mg 00:00: mouth [place] tablet 00 daily. Medical Branch mirabegron 0 Yes [id number] 50mg Take 1 [facility] (MYRBETRIQ) 1-18 tablet by ity of 50 mg 00:00: mouth [place] tablet 00 daily. Medical Branch mirabegron 0 Yes [id number] 50mg Take 1 [facility] (MYRBETRIQ) 1-18 tablet by ity of 50 mg 00:00: mouth [place] tablet 00 daily. [facility] Branch mirabegron 0 Yes [id number] 50mg Take 1 [facility] (MYRBETRIQ) 1-18 tablet by ity of 50 mg 00:00: mouth [place] tablet 00 daily. Medical Branch semaglutide 2020-09 Yes [id number] Inject Univers (OZEMPIC) 2-01 0.25 mg ity of 0.25 mg or 00:00: under the [place] 0.5 mg(2 00 skin Medical mg/1.5 mL) weekly. Branch PnIj semaglutide 2020-09 Yes [id number] Inject [facility] (OZEMPIC) 2-01 0.25 mg ity of 0.25 mg or 00:00: under the [place] 0.5 mg(2 00 skin Medical mg/1.5 mL) weekly. Branch PnIj semaglutide 2020-09 Yes [id number] Inject [facility] (OZEMPIC) 2-01 0.25 mg ity of 0.25 mg or 00:00: under the [place] 0.5 mg(2 00 skin Medical mg/1.5 mL) weekly. Branch PnIj semaglutide 2020-09 Yes [id number] Inject [facility] (OZEMPIC) 2-01 0.25 mg ity of 0.25 mg or 00:00: under the [place] 0.5 mg(2 00 skin Medical mg/1.5 mL) weekly. Branch PnIj semaglutide 2020-09 Yes [id number] Inject [facility] (OZEMPIC) 2-01 0.25 mg ity of 0.25 mg or 00:00: under the [place] 0.5 mg(2 00 skin Medical mg/1.5 mL) weekly. Branch PnIj semaglutide 2020-09 Yes [id number] Inject [facility] (OZEMPIC) 2-01 0.25 mg ity of 0.25 mg or 00:00: under the [place] 0.5 mg(2 00 skin Medical mg/1.5 mL) weekly. Branch PnIj semaglutide 2020-09 Yes [id number] Inject [facility] (OZEMPIC) 2-01 0.25 mg ity of 0.25 mg or 00:00: under the [place] 0.5 mg(2 00 skin Medical mg/1.5 mL) weekly. Branch PnIj semaglutide 2020-09 Yes [id number] Inject [facility] (OZEMPIC) 2-01 0.25 mg ity of 0.25 mg or 00:00: under the [place] 0.5 mg(2 00 skin Medical mg/1.5 mL) weekly. Branch PnIj semaglutide 2020-09 Yes [id number] Inject [facility] (OZEMPIC) 2-01 0.25 mg ity of 0.25 mg or 00:00: under the [place] 0.5 mg(2 00 skin Medical mg/1.5 mL) weekly. Branch PnIj semaglutide 2020-09 Yes [id number] Inject [facility] (OZEMPIC) 2-01 0.25 mg ity of 0.25 mg or 00:00: under the [place] 0.5 mg(2 00 skin Medical mg/1.5 mL) weekly. Branch RyIj semaglutide 2020-09 Yes [id number] Inject [facility] (OZEMPIC) 2-01 0.25 mg ity of 0.25 mg or 00:00: under the [place] 0.5 mg(2 00 skin Medical mg/1.5 mL) weekly. Branch RyIj semaglutide 2020-09 Yes [id number] Inject [facility] (OZEMPIC) 2-01 0.25 mg ity of 0.25 mg or 00:00: under the [place] 0.5 mg(2 00 skin Medical mg/1.5 mL) weekly. Branch RyMali semaglutide 2020-09 Yes [id number] Inject [facility] (OZEMPIC) 2-01 0.25 mg ity of 0.25 mg or 00:00: under the [place] 0.5 mg(2 00 skin Medical mg/1.5 mL) weekly. Branch RyMali semaglutide 2020-09 Yes [id number] Inject [facility] (OZEMPIC) 2-01 0.25 mg ity of 0.25 mg or 00:00: under the [place] 0.5 mg(2 00 skin Medical mg/1.5 mL) weekly. Branch RyMali semaglutide 2020-09 Yes [id number] Inject [facility] (OZEMPIC) 2-01 0.25 mg ity of 0.25 mg or 00:00: under the [place] 0.5 mg(2 00 skin Medical mg/1.5 mL) weekly. Branch RyIj semaglutide 2020-09 Yes [id number] Inject [facility] (OZEMPIC) 2-01 0.25 mg ity of 0.25 mg or 00:00: under the [place] 0.5 mg(2 00 skin Medical mg/1.5 mL) weekly. Branch RyMali semaglutide 2020-09 Yes [id number] Inject [facility] (OZEMPIC) 2-01 0.25 mg ity of 0.25 mg or 00:00: under the [place] 0.5 mg(2 00 skin Medical mg/1.5 mL) weekly. Branch RyIj semaglutide 2020-09 Yes [id number] Inject [facility] (OZEMPIC) 2-01 0.25 mg ity of 0.25 mg or 00:00: under the [place] 0.5 mg(2 00 skin Medical mg/1.5 mL) weekly. Branch PnIj semaglutide 2020-09 Yes [id number] Inject [facility] (OZEMPIC) 2-01 0.25 mg ity of 0.25 mg or 00:00: under the [place] 0.5 mg(2 00 skin Medical mg/1.5 mL) weekly. Branch PnIj semaglutide 2020-09 Yes [id number] Inject [facility] (OZEMPIC) 2-01 0.25 mg ity of 0.25 mg or 00:00: under the [place] 0.5 mg(2 00 skin Medical mg/1.5 mL) weekly. Branch PnIj semaglutide 2020-09 Yes [id number] Inject [facility] (OZEMPIC) 2-01 0.25 mg ity of 0.25 mg or 00:00: under the [place] 0.5 mg(2 00 skin Medical mg/1.5 mL) weekly. Branch PnIj semaglutide 2020-09 Yes [id number] Inject [facility] (OZEMPIC) 2-01 0.25 mg ity of 0.25 mg or 00:00: under the [place] 0.5 mg(2 00 skin Medical mg/1.5 mL) weekly. Branch PnIj semaglutide 2020-09 Yes [id number] Inject [facility] (OZEMPIC) 2-01 0.25 mg ity of 0.25 mg or 00:00: under the [place] 0.5 mg(2 00 skin Medical mg/1.5 mL) weekly. Branch PnIj semaglutide 2020-09 Yes [id number] Inject [facility] (OZEMPIC) 2-01 0.25 mg ity of 0.25 mg or 00:00: under the [place] 0.5 mg(2 00 skin Medical mg/1.5 mL) weekly. Branch PnIj semaglutide 2020-09 Yes [id number] Inject [facility] (OZEMPIC) 2-01 0.25 mg ity of 0.25 mg or 00:00: under the [place] 0.5 mg(2 00 skin Medical mg/1.5 mL) weekly. Branch PnIj semaglutide 2020-09 Yes [id number] Inject [facility] (OZEMPIC) 2-01 0.25 mg ity of 0.25 mg or 00:00: under the [place] 0.5 mg(2 00 skin Medical mg/1.5 mL) weekly. Branch PnIj semaglutide 2020-09 Yes [id number] Inject [facility] (OZEMPIC) 2-01 0.25 mg ity of 0.25 mg or 00:00: under the [place] 0.5 mg(2 00 skin Medical mg/1.5 mL) weekly. Branch PnIj semaglutide 2020-09 Yes [id number] Inject [facility] (OZEMPIC) 2-01 0.25 mg ity of 0.25 mg or 00:00: under the [place] 0.5 mg(2 00 skin Medical mg/1.5 mL) weekly. Branch PnIj semaglutide 2020-09 Yes [id number] Inject [facility] (OZEMPIC) 2-01 0.25 mg ity of 0.25 mg or 00:00: under the [place] 0.5 mg(2 00 skin Medical mg/1.5 mL) weekly. Branch PnIj semaglutide 2020-09 Yes [id number] Inject [facility] (OZEMPIC) 2-01 0.25 mg ity of 0.25 mg or 00:00: under the [place] 0.5 mg(2 00 skin Medical mg/1.5 mL) weekly. Branch PnIj semaglutide 2020-09 Yes [id number] Inject [facility] (OZEMPIC) 2-01 0.25 mg ity of 0.25 mg or 00:00: under the [place] 0.5 mg(2 00 skin Medical mg/1.5 mL) weekly. Branch PnIj semaglutide 2020-09 Yes [id number] Inject [facility] (OZEMPIC) 2-01 0.25 mg ity of 0.25 mg or 00:00: under the [place] 0.5 mg(2 00 skin Medical mg/1.5 mL) weekly. Branch PnIj semaglutide 2020-09 Yes [id number] Inject [facility] (OZEMPIC) 2-01 0.25 mg ity of 0.25 mg or 00:00: under the [place] 0.5 mg(2 00 skin Medical mg/1.5 mL) weekly. Branch PnIj metformin 2020-09- No [id number] 500mg Take 1 [facility] ER 500 mg 10-27 tablet by ity of 24 hr 00:00: 00:00 mouth [place] tablet 00 :00 daily with Medical breakfast. Branch STOP REGULAR METFORMIN. metformin 2020-09- No [id number] 500mg Take 1 [facility] ER 500 mg 10-27 tablet by ity of 24 hr 00:00: 00:00 mouth [place] tablet 00 :00 daily with Medical breakfast. Branch STOP REGULAR METFORMIN. cyanocobala 2020-09 Yes [id number] 1000ug 1 mL by [facility] min 1,000 -09 Intramuscu ity of mcg/mL 00:00: lar route [place] injection 00 every 2 Medical (two) Branch weeks. levothyroxi 2020-09 Yes [id number] 50ug Take 1 [facility] ne 50 mcg 10-04 tablet by ity o f tablet 00:00: mouth [place] 00 every Medical morning. Branch fluticasone 2020-09 Yes [id number] 2{puff} Inhale 2 [facility] propionate -09 Puffs ity of (FLOVENT 00:00: every 12 [place] HFA) 110 00 (twelve) Medical mcg/actuati hours. Branch on inhaler Rinse mouth after each use. levalbutero 2020-09 Yes [id number] .63mg Inhale Univers l 0.63 mg/3 -09 0.63 mg 3 ity of mL 00:00: (three) [place] nebulizer 00 times Medical solution daily as Branch needed for Wheezing or Shortness of Breath. losartan 50 2020-09 Yes [id number] 50mg Take 1 [facility] mg tablet -09 tablet by ity o f 00:00: mouth 2 [place] 00 (two) Medical times Branch daily. clotrimazol 2020-09 Yes [id number] Apply to [facility] e-betametha -09 area(s) 2 ity of sone cream 00:00: (two) [place] 00 times Medical daily. Branch cyclobenzap 2020-09 Yes [id number] TAKE 1 [facility] rine 5 mg -09 TABLET BY ity o f tablet 00:00: MOUTH [place] 00 EVERY 8 Medical HOURS Branch NEEDED econazole 2020-09 Yes [id number] Apply to [facility] nitrate 1 % - area(s) 2 ity of cream 00:00: (two) [place] 00 times Medical daily. Branch albuterol 2020-09 Yes [id number] 2{puff} Inhale 2 [facility] (PROAIR 1-09 Puffs ity of HFA) 90 00:00: every 6 [place] mcg/actuati 00 (six) Medical on inhaler hours as Branc h needed for Wheezing or Shortness of Breath. triamcinolo 2020-09 Yes [id number] Apply to [facility] ne 0.025 % 09 area(s) 3 it[facility] of ointment 00:00: (three) [place] 00 times Medical daily. For Branch itching diltiazem 2020-09 Yes [id number] 120mg Take 1 [facility] (CARTIA XT) -09 capsule by it y of 120 mg 24 00:00: mouth 2 [place] hr capsule 00 (two) Medical times Branch daily. cyanocobala 2020-09 Yes [id number] 1000ug 1 mL by [facility] min 1,000 1-09 Intramuscu ity of mcg/mL 00:00: lar route [place] injection 00 every 2 Medical (two) Branch weeks. levothyroxi 2020-09 Yes [id number] 50ug Take 1 [facility] ne 50 mcg 1-09 tablet by ity o f tablet 00:00: mouth [place] 00 every Medical morning. Branch fluticasone 2020-09 Yes [id number] 2{puff} Inhale 2 [facility] propionate 1-09 Puffs ity of (FLOVENT 00:00: every 12 [place] HFA) 110 00 (twelve) Medical mcg/actuati hours. Branch on inhaler Rinse mouth after each use. levalbutero 2020-09 Yes [id number] .63mg Inhale [facility] l 0.63 mg/3 1-09 0.63 mg 3 ity of mL 00:00: (three) [place] nebulizer 00 times Medical solution daily as Branch needed for Wheezing or Shortness of Breath. losartan 50 2020-09 Yes [id number] 50mg Take 1 [facility] mg tablet 1-09 tablet by ity o f 00:00: mouth 2 [place] 00 (two) Medical times Branch daily. clotrimazol 2020-09 Yes [id number] Apply to [facility] e-betametha -09 area(s) 2 ity of sone cream 00:00: (two) [place] 00 times Medical daily. Branch cyclobenzap 2020-09 Yes [id number] TAKE 1 [facility] rine 5 mg 1-09 TABLET BY it[facility] o f tablet 00:00: MOUTH [place] 00 EVERY 8 Medical HOURS Branch NEEDED econazole 2020-09 Yes [id number] Apply to [facility] nitrate 1 % 1-09 area(s) 2 ity of cream 00:00: (two) [place] 00 times Medical daily. Branch albuterol 2020-09 Yes [id number] 2{puff} Inhale 2 [facility] (PROAIR 1-09 Puffs ity of HFA) 90 00:00: every 6 [place] mcg/actuati 00 (six) Medical on inhaler hours as Branc h needed for Wheezing or Shortness of Breath. triamcinolo 2020-09 Yes [id number] Apply to [facility] ne 0.025 % 1-09 area(s) 3 ity of ointment 00:00: (three) [place] 00 times Medical daily. For Branch itching diltiazem 2020-09 Yes [id number] 120mg Take 1 [facility] (CARTIA XT) 1-09 capsule by it y of 120 mg 24 00:00: mouth 2 [place] hr capsule 00 (two) Medical times Branch daily. cyanocobala 2020-09 Yes [id number] 1000ug 1 mL by [facility] min 1,000 1-09 Intramuscu ity of mcg/mL 00:00: lar route [place] injection 00 every 2 Medical (two) Branch weeks. levothyroxi 2020-09 Yes [id number] 50ug Take 1 [facility] ne 50 mcg 1-09 tablet by ity o f tablet 00:00: mouth [place] 00 every Medical morning. Branch fluticasone 2020-09 Yes [id number] 2{puff} Inhale 2 [facility] propionate 1-09 Puffs ity of (FLOVENT 00:00: every 12 [place] HFA) 110 00 (twelve) Medical mcg/actuati hours. Branch on inhaler Rinse mouth after each use. levalbutero 2020-09 Yes [id number] .63mg Inhale [facility] l 0.63 mg/3 1-09 0.63 mg 3 ity of mL 00:00: (three) [place] nebulizer 00 times Medical solution daily as Branch needed for Wheezing or Shortness of Breath. losartan 50 2020-09 Yes [id number] 50mg Take 1 [facility] mg tablet 1-09 tablet by ity o f 00:00: mouth 2 [place] 00 (two) Medical times Branch daily. clotrimazol 2020-09 Yes [id number] Apply to [facility] e-betametha 09 area(s) 2 ity of sone cream 00:00: (two) [place] 00 times Medical daily. Branch cyclobenzap 2020-09 Yes [id number] TAKE 1 [facility] rine 5 mg -09 TABLET BY ity o f tablet 00:00: MOUTH [place] 00 EVERY 8 Medical HOURS Branch NEEDED econazole 2020-09 Yes [id number] Apply to [facility] nitrate 1 % 10-04 area(s) 2 ity of cream 00:00: (two) [place] 00 times Medical daily. Branch albuterol 2020-09 Yes [id number] 2{puff} Inhale 2 [facility] (PROAIR 1-09 Puffs ity of HFA) 90 00:00: every 6 [place] mcg/actuati 00 (six) Medical on inhaler hours as Branc h needed for Wheezing or Shortness of Breath. triamcinolo 2020-09 Yes [id number] Apply to [facility] ne 0.025 % 10-04 area(s) 3 ity of ointment 00:00: (three) [place] 00 times Medical daily. For Branch itching diltiazem 2020-09 Yes [id number] 120mg Take 1 [facility] (CARTIA XT) 09 capsule by it y of 120 mg 24 00:00: mouth 2 [place] hr capsule 00 (two) Medical times Branch daily. cyanocobala 2020-09 Yes [id number] 1000ug 1 mL by [facility] min 1,000 -09 Intramuscu ity of mcg/mL 00:00: lar route [place] injection 00 every 2 Medical (two) Branch weeks. levothyroxi 2020-09 Yes [id number] 50ug Take 1 [facility] ne 50 mcg -09 tablet by ity o f tablet 00:00: mouth [place] 00 every Medical morning. Branch fluticasone 2020-09 Yes [id number] 2{puff} Inhale 2 [facility] propionate 1-09 Puffs ity of (FLOVENT 00:00: every 12 [place] HFA) 110 00 (twelve) Medical mcg/actuati hours. Branch on inhaler Rinse mouth after each use. levalbutero 2020-09 Yes [id number] .63mg Inhale [facility] l 0.63 mg/3 1-09 0.63 mg 3 ity of mL 00:00: (three) [place] nebulizer 00 times Medical solution daily as Branch needed for Wheezing or Shortness of Breath. losartan 50 2020-09 Yes [id number] 50mg Take 1 [facility] mg tablet -09 tablet by ity o f 00:00: mouth 2 [place] 00 (two) Medical times Branch daily. clotrimazol 2020-09 Yes [id number] Apply to [facility] e-betametha 09 area(s) 2 ity of sone cream 00:00: (two) [place] 00 times Medical daily. Branch cyclobenzap 2020-09 Yes [id number] TAKE 1 [facility] rine 5 mg 10-04 TABLET BY ity o f tablet 00:00: MOUTH [place] 00 EVERY 8 Medical HOURS Branch NEEDED econazole 2020-09 Yes [id number] Apply to [facility] nitrate 1 % 10-04 area(s) 2 ity of cream 00:00: (two) [place] 00 times Medical daily. Branch albuterol 2020-09 Yes [id number] 2{puff} Inhale 2 [facility] (PROAIR -09 Puffs ity of HFA) 90 00:00: every 6 [place] mcg/actuati 00 (six) Medical on inhaler hours as Branc h needed for Wheezing or Shortness of Breath. triamcinolo 2020-09 Yes [id number] Apply to [facility] ne 0.025 % 10-04 area(s) 3 ity of ointment 00:00: (three) [place] 00 times Medical daily. For Branch itching diltiazem 2020-09 Yes [id number] 120mg Take 1 [facility] (CARTIA XT) -09 capsule by it y of 120 mg 24 00:00: mouth 2 [place] hr capsule 00 (two) Medical times Branch daily. cyanocobala 2020-09 Yes [id number] 1000ug 1 mL by [facility] min 1,000 -09 Intramuscu ity of mcg/mL 00:00: lar route [place] injection 00 every 2 Medical (two) Branch weeks. levothyroxi 2020-09 Yes [id number] 50ug Take 1 [facility] ne 50 mcg -09 tablet by ity o f tablet 00:00: mouth [place] 00 every Medical morning. Branch fluticasone 2020-09 Yes [id number] 2{puff} Inhale 2 [facility] propionate 1-09 Puffs ity of (FLOVENT 00:00: every 12 [place] HFA) 110 00 (twelve) Medical mcg/actuati hours. Branch on inhaler Rinse mouth after each use. levalbutero 2020-09 Yes [id number] .63mg Inhale [facility] l 0.63 mg/3 1-09 0.63 mg 3 ity of mL 00:00: (three) [place] nebulizer 00 times Medical solution daily as Branch needed for Wheezing or Shortness of Breath. clotrimazol 2020-09 Yes [id number] Apply to [facility] e-betametha 1-09 area(s) 2 ity of sone cream 00:00: (two) [place] 00 times Medical daily. Branch cyclobenzap 2020-09 Yes [id number] TAKE 1 [facility] rine 5 mg -09 TABLET BY ity o f tablet 00:00: MOUTH [place] 00 EVERY 8 Medical HOURS Branch NEEDED econazole 2020-09 Yes [id number] Apply to [facility] nitrate 1 % -09 area(s) 2 ity of cream 00:00: (two) [place] 00 times Medical daily. Branch albuterol 2020-09 Yes [id number] 2{puff} Inhale 2 [facility] (PROAIR 1-09 Puffs ity of HFA) 90 00:00: every 6 [place] mcg/actuati 00 (six) Medical on inhaler hours as Branc h needed for Wheezing or Shortness of Breath. triamcinolo 2020-09 Yes [id number] Apply to [facility] ne 0.025 % 1-09 area(s) 3 ity of ointment 00:00: (three) [place] 00 times Medical daily. For Branch itching cyanocobala 2020-09 Yes [id number] 1000ug 1 mL by [facility] min 1,000 1-09 Intramuscu ity of mcg/mL 00:00: lar route [place] injection 00 every 2 Medical (two) Branch weeks. levothyroxi 2020-09 Yes [id number] 50ug Take 1 [facility] ne 50 mcg 1-09 tablet by ity o f tablet 00:00: mouth [place] 00 every Medical morning. Branch fluticasone 2020-09 Yes [id number] 2{puff} Inhale 2 [facility] propionate 1-09 Puffs ity of (FLOVENT 00:00: every 12 [place] HFA) 110 00 (twelve) Medical mcg/actuati hours. Branch on inhaler Rinse mouth after each use. levalbutero 2020-09 Yes [id number] .63mg Inhale [facility] l 0.63 mg/3 1-09 0.63 mg 3 ity of mL 00:00: (three) [place] nebulizer 00 times Medical solution daily as Branch needed for Wheezing or Shortness of Breath. clotrimazol 2020-09 Yes [id number] Apply to [facility] e-betametha 1-09 area(s) 2 ity of sone cream 00:00: (two) [place] 00 times Medical daily. Branch cyclobenzap 2020-09 Yes [id number] TAKE 1 [facility] rine 5 mg -09 TABLET BY ity o f tablet 00:00: MOUTH [place] 00 EVERY 8 Medical HOURS Branch NEEDED econazole 2020-09 Yes [id number] Apply to [facility] nitrate 1 % -09 area(s) 2 ity of cream 00:00: (two) [place] 00 times Medical daily. Branch albuterol 2020-09 Yes [id number] 2{puff} Inhale 2 [facility] (PROAIR 1-09 Puffs ity of HFA) 90 00:00: every 6 [place] mcg/actuati 00 (six) Medical on inhaler hours as Branc h needed for Wheezing or Shortness of Breath. triamcinolo 2020-09 Yes [id number] Apply to [facility] ne 0.025 % 1-09 area(s) 3 ity of ointment 00:00: (three) [place] 00 times Medical daily. For Branch itching cyanocobala 2020-09 Yes [id number] 1000ug 1 mL by [facility] min 1,000 1-09 Intramuscu ity of mcg/mL 00:00: lar route [place] injection 00 every 2 Medical (two) Branch weeks. levothyroxi 2020-09 Yes [id number] 50ug Take 1 [facility] ne 50 mcg 1-09 tablet by ity o f tablet 00:00: mouth [place] 00 every Medical morning. Branch fluticasone 2020-09 Yes [id number] 2{puff} Inhale 2 [facility] propionate 1-09 Puffs ity of (FLOVENT 00:00: every 12 [place] HFA) 110 00 (twelve) Medical mcg/actuati hours. Branch on inhaler Rinse mouth after each use. levalbutero 2020-09 Yes [id number] .63mg Inhale [facility] l 0.63 mg/3 1-09 0.63 mg 3 ity of mL 00:00: (three) [place] nebulizer 00 times Medical solution daily as Branch needed for Wheezing or Shortness of Breath. clotrimazol 2020-09 Yes [id number] Apply to [facility] e-betametha 1-09 area(s) 2 ity of sone cream 00:00: (two) [place] 00 times Medical daily. Branch cyclobenzap 2020-09 Yes [id number] TAKE 1 [facility] rine 5 mg 1-09 TABLET BY ity o f tablet 00:00: MOUTH [place] 00 EVERY 8 Medical HOURS Branch NEEDED econazole 2020-09 Yes [id number] Apply to [facility] nitrate 1 % 09 area(s) 2 ity of cream 00:00: (two) [place] 00 times Medical daily. Branch albuterol 2020-09 Yes [id number] 2{puff} Inhale 2 [facility] (PROAIR 1-09 Puffs ity of HFA) 90 00:00: every 6 [place] mcg/actuati 00 (six) Medical on inhaler hours as Branc h needed for Wheezing or Shortness of Breath. triamcinolo 2020-09 Yes [id number] Apply to [facility] ne 0.025 % -09 area(s) 3 ity of ointment 00:00: (three) [place] 00 times Medical daily. For Branch itching cyanocobala 2020-09 Yes [id number] 1000ug 1 mL by [facility] min 1,000 1-09 Intramuscu ity of mcg/mL 00:00: lar route [place] injection 00 every 2 Medical (two) Branch weeks. levothyroxi 2020-09 Yes [id number] 50ug Take 1 [facility] ne 50 mcg 1-09 tablet by ity o f tablet 00:00: mouth [place] 00 every Medical morning. Branch fluticasone 2020-09 Yes [id number] 2{puff} Inhale 2 [facility] propionate 1-09 Puffs ity of (FLOVENT 00:00: every 12 [place] HFA) 110 00 (twelve) Medical mcg/actuati hours. Branch on inhaler Rinse mouth after each use. levalbutero 2020-09 Yes [id number] .63mg Inhale [facility] l 0.63 mg/3 1-09 0.63 mg 3 ity of mL 00:00: (three) [place] nebulizer 00 times Medical solution daily as Branch needed for Wheezing or Shortness of Breath. clotrimazol 2020-09 Yes [id number] Apply to [facility] e-betametha 09 area(s) 2 ity of sone cream 00:00: (two) [place] 00 times Medical daily. Branch cyclobenzap 2020-09 Yes [id number] TAKE 1 [facility] rine 5 mg -09 TABLET BY ity o f tablet 00:00: MOUTH [place] 00 EVERY 8 Medical HOURS Branch NEEDED econazole 2020-09 Yes [id number] Apply to [facility] nitrate 1 % 10-04 area(s) 2 ity of cream 00:00: (two) [place] 00 times Medical daily. Branch albuterol 2020-09 Yes [id number] 2{puff} Inhale 2 [facility] (PROAIR 1-09 Puffs ity of HFA) 90 00:00: every 6 [place] mcg/actuati 00 (six) Medical on inhaler hours as Branc h needed for Wheezing or Shortness of Breath. triamcinolo 2020-09 Yes [id number] Apply to [facility] ne 0.025 % 10-04 area(s) 3 ity of ointment 00:00: (three) [place] 00 times Medical daily. For Branch itching cyanocobala 2020-09 Yes [id number] 1000ug 1 mL by [facility] min 1,000 1-09 Intramuscu ity of mcg/mL 00:00: lar route [place] injection 00 every 2 Medical (two) Branch weeks. levothyroxi 2020-09 Yes [id number] 50ug Take 1 [facility] ne 50 mcg 1-09 tablet by ity o f tablet 00:00: mouth [place] 00 every Medical morning. Branch fluticasone 2020-09 Yes [id number] 2{puff} Inhale 2 [facility] propionate 1-09 Puffs ity of (FLOVENT 00:00: every 12 [place] HFA) 110 00 (twelve) Medical mcg/actuati hours. Branch on inhaler Rinse mouth after each use. levalbutero 2020-09 Yes [id number] .63mg Inhale [facility] l 0.63 mg/3 09 0.63 mg 3 ity of mL 00:00: (three) [place] nebulizer 00 times Medical solution daily as Branch needed for Wheezing or Shortness of Breath. clotrimazol 2020-09 Yes [id number] Apply to [facility] e-betametha 09 area(s) 2 ity of sone cream 00:00: (two) [place] 00 times Medical daily. Branch cyclobenzap 2020-09 Yes [id number] TAKE 1 [facility] rine 5 mg 09 TABLET BY ity o f tablet 00:00: MOUTH [place] 00 EVERY 8 Medical HOURS Branch NEEDED econazole 2020-09 Yes [id number] Apply to [facility] nitrate 1 % 10-04 area(s) 2 ity of cream 00:00: (two) [place] 00 times Medical daily. Branch albuterol 2020-09 Yes [id number] 2{puff} Inhale 2 [facility] (PROAIR 1-09 Puffs ity of HFA) 90 00:00: every 6 [place] mcg/actuati 00 (six) Medical on inhaler hours as Branc h needed for Wheezing or Shortness of Breath. triamcinolo 2020-09 Yes [id number] Apply to [facility] ne 0.025 % 10-04 area(s) 3 ity of ointment 00:00: (three) [place] 00 times Medical daily. For Branch itching cyanocobala 2020-09 Yes [id number] 1000ug 1 mL by [facility] min 1,000 -09 Intramuscu ity of mcg/mL 00:00: lar route [place] injection 00 every 2 Medical (two) Branch weeks. levothyroxi 2020-09 Yes [id number] 50ug Take 1 [facility] ne 50 mcg -09 tablet by ity o f tablet 00:00: mouth [place] 00 every Medical morning. Branch fluticasone 2020-09 Yes [id number] 2{puff} Inhale 2 [facility] propionate 1-09 Puffs ity of (FLOVENT 00:00: every 12 [place] HFA) 110 00 (twelve) Medical mcg/actuati hours. Branch on inhaler Rinse mouth after each use. levalbutero 2020-09 Yes [id number] .63mg Inhale [facility] l 0.63 mg/3 1-09 0.63 mg 3 ity of mL 00:00: (three) [place] nebulizer 00 times Medical solution daily as Branch needed for Wheezing or Shortness of Breath. clotrimazol 2020-09 Yes [id number] Apply to [facility] e-betametha 1-09 area(s) 2 ity of sone cream 00:00: (two) [place] 00 times Medical daily. Branch cyclobenzap 2020-09 Yes [id number] TAKE 1 [facility] rine 5 mg 1-09 TABLET BY ity o f tablet 00:00: MOUTH [place] 00 EVERY 8 Medical HOURS Branch NEEDED econazole 2020-09 Yes [id number] Apply to [facility] nitrate 1 % 1-09 area(s) 2 ity of cream 00:00: (two) [place] 00 times Medical daily. Branch albuterol 2020-09 Yes [id number] 2{puff} Inhale 2 [facility] (PROAIR 1-09 Puffs ity of HFA) 90 00:00: every 6 [place] mcg/actuati 00 (six) Medical on inhaler hours as Branc h needed for Wheezing or Shortness of Breath. triamcinolo 2020-09 Yes [id number] Apply to [facility] ne 0.025 % -09 area(s) 3 ity of ointment 00:00: (three) [place] 00 times Medical daily. For Branch itching cyanocobala 2020-09 Yes [id number] 1000ug 1 mL by [facility] min 1,000 1-09 Intramuscu ity of mcg/mL 00:00: lar route [place] injection 00 every 2 Medical (two) Branch weeks. levothyroxi 2020-09 Yes [id number] 50ug Take 1 [facility] ne 50 mcg 1-09 tablet by ity o f tablet 00:00: mouth [place] 00 every Medical morning. Branch fluticasone 2020-09 Yes [id number] 2{puff} Inhale 2 [facility] propionate 1-09 Puffs ity of (FLOVENT 00:00: every 12 [place] HFA) 110 00 (twelve) Medical mcg/actuati hours. Branch on inhaler Rinse mouth after each use. levalbutero 2020-09 Yes [id number] .63mg Inhale [facility] l 0.63 mg/3 1-09 0.63 mg 3 ity of mL 00:00: (three) [place] nebulizer 00 times Medical solution daily as Branch needed for Wheezing or Shortness of Breath. clotrimazol 2020-09 Yes [id number] Apply to [facility] e-betametha 09 area(s) 2 ity of sone cream 00:00: (two) [place] 00 times Medical daily. Branch cyclobenzap 2020-09 Yes [id number] TAKE 1 [facility] rine 5 mg -09 TABLET BY ity o f tablet 00:00: MOUTH [place] 00 EVERY 8 Medical HOURS Branch NEEDED econazole 2020-09 Yes [id number] Apply to [facility] nitrate 1 % 09 area(s) 2 ity of cream 00:00: (two) [place] 00 times Medical daily. Branch albuterol 2020-09 Yes [id number] 2{puff} Inhale 2 [facility] (PROAIR 1-09 Puffs ity of HFA) 90 00:00: every 6 [place] mcg/actuati 00 (six) Medical on inhaler hours as Branc h needed for Wheezing or Shortness of Breath. triamcinolo 2020-09 Yes [id number] Apply to [facility] ne 0.025 % 10-04 area(s) 3 ity of ointment 00:00: (three) [place] 00 times Medical daily. For Branch itching cyanocobala 2020-09 Yes [id number] 1000ug 1 mL by [facility] min 1,000 1-09 Intramuscu ity of mcg/mL 00:00: lar route [place] injection 00 every 2 Medical (two) Branch weeks. levothyroxi 2020-09 Yes [id number] 50ug Take 1 [facility] ne 50 mcg 10-04 tablet by ity o f tablet 00:00: mouth [place] 00 every Medical morning. Branch fluticasone 2020-09 Yes [id number] 2{puff} Inhale 2 [facility] propionate 1-09 Puffs ity of (FLOVENT 00:00: every 12 [place] HFA) 110 00 (twelve) Medical mcg/actuati hours. Branch on inhaler Rinse mouth after each use. levalbutero 2020-09 Yes [id number] .63mg Inhale [facility] l 0.63 mg/3 1-09 0.63 mg 3 ity of mL 00:00: (three) [place] nebulizer 00 times Medical solution daily as Branch needed for Wheezing or Shortness of Breath. clotrimazol 2020-09 Yes [id number] Apply to [facility] e-betametha 10-04 area(s) 2 ity of sone cream 00:00: (two) [place] 00 times Medical daily. Branch cyclobenzap 2020-09 Yes [id number] TAKE 1 [facility] rine 5 mg -09 TABLET BY ity o f tablet 00:00: MOUTH [place] 00 EVERY 8 Medical HOURS Branch NEEDED econazole 2020-09 Yes [id number] Apply to [facility] nitrate 1 % 10-04 area(s) 2 ity of cream 00:00: (two) [place] 00 times Medical daily. Branch albuterol 2020-09 Yes [id number] 2{puff} Inhale 2 [facility] (PROAIR 1-09 Puffs ity of HFA) 90 00:00: every 6 [place] mcg/actuati 00 (six) Medical on inhaler hours as Branc h needed for Wheezing or Shortness of Breath. triamcinolo 2020-09 Yes [id number] Apply to [facility] ne 0.025 % 10-04 area(s) 3 ity of ointment 00:00: (three) [place] 00 times Medical daily. For Branch itching cyanocobala 2020-09 Yes [id number] 1000ug 1 mL by [facility] min 1,000 -09 Intramuscu ity of mcg/mL 00:00: lar route [place] injection 00 every 2 Medical (two) Branch weeks. levothyroxi 2020-09 Yes [id number] 50ug Take 1 [facility] ne 50 mcg 10-04 tablet by ity o f tablet 00:00: mouth [place] 00 every Medical morning. Branch fluticasone 2020-09 Yes [id number] 2{puff} Inhale 2 [facility] propionate 1-09 Puffs ity of (FLOVENT 00:00: every 12 [place] HFA) 110 00 (twelve) Medical mcg/actuati hours. Branch on inhaler Rinse mouth after each use. levalbutero 2020-09 Yes [id number] .63mg Inhale [facility] l 0.63 mg/3 1-09 0.63 mg 3 ity of mL 00:00: (three) [place] nebulizer 00 times Medical solution daily as Branch needed for Wheezing or Shortness of Breath. clotrimazol 2020-09 Yes [id number] Apply to [facility] e-betametha -09 area(s) 2 ity of sone cream 00:00: (two) [place] 00 times Medical daily. Branch cyclobenzap 2020-09 Yes [id number] TAKE 1 [facility] rine 5 mg -09 TABLET BY ity o f tablet 00:00: MOUTH [place] 00 EVERY 8 Medical HOURS Branch NEEDED econazole 2020-09 Yes [id number] Apply to [facility] nitrate 1 % 10-04 area(s) 2 ity of cream 00:00: (two) [place] 00 times Medical daily. Branch albuterol 2020-09 Yes [id number] 2{puff} Inhale 2 [facility] (PROAIR 1-09 Puffs ity of HFA) 90 00:00: every 6 [place] mcg/actuati 00 (six) Medical on inhaler hours as Branc h needed for Wheezing or Shortness of Breath. triamcinolo 2020-09 Yes [id number] Apply to [facility] ne 0.025 % 10-04 area(s) 3 ity of ointment 00:00: (three) [place] 00 times Medical daily. For Branch itching cyanocobala 2020-09 Yes [id number] 1000ug 1 mL by [facility] min 1,000 1-09 Intramuscu ity of mcg/mL 00:00: lar route [place] injection 00 every 2 Medical (two) Branch weeks. levothyroxi 2020-09 Yes [id number] 50ug Take 1 [facility] ne 50 mcg 09 tablet by ity o f tablet 00:00: mouth [place] 00 every Medical morning. Branch fluticasone 2020-09 Yes [id number] 2{puff} Inhale 2 [facility] propionate 1-09 Puffs ity of (FLOVENT 00:00: every 12 [place] HFA) 110 00 (twelve) Medical mcg/actuati hours. Branch on inhaler Rinse mouth after each use. levalbutero 2020-09 Yes [id number] .63mg Inhale [facility] l 0.63 mg/3 1-09 0.63 mg 3 ity of mL 00:00: (three) [place] nebulizer 00 times Medical solution daily as Branch needed for Wheezing or Shortness of Breath. clotrimazol 2020-09 Yes [id number] Apply to [facility] e-betametha -09 area(s) 2 ity of sone cream 00:00: (two) [place] 00 times Medical daily. Branch cyclobenzap 2020-09 Yes [id number] TAKE 1 [facility] rine 5 mg 1-09 TABLET BY ity o f tablet 00:00: MOUTH [place] 00 EVERY 8 Medical HOURS Branch NEEDED econazole 2020-09 Yes [id number] Apply to [facility] nitrate 1 % 09 area(s) 2 ity of cream 00:00: (two) [place] 00 times Medical daily. Branch albuterol 2020-09 Yes [id number] 2{puff} Inhale 2 [facility] (PROAIR 1-09 Puffs ity of HFA) 90 00:00: every 6 [place] mcg/actuati 00 (six) Medical on inhaler hours as Branc h needed for Wheezing or Shortness of Breath. triamcinolo 2020-09 Yes [id number] Apply to [facility] ne 0.025 % 10-04 area(s) 3 ity of ointment 00:00: (three) [place] 00 times Medical daily. For Branch itching cyanocobala 2020-09 Yes [id number] 1000ug 1 mL by [facility] min 1,000 1-09 Intramuscu ity of mcg/mL 00:00: lar route [place] injection 00 every 2 Medical (two) Branch weeks. levothyroxi 2020-09 Yes [id number] 50ug Take 1 [facility] ne 50 mcg -09 tablet by ity o f tablet 00:00: mouth [place] 00 every Medical morning. Branch fluticasone 2020-09 Yes [id number] 2{puff} Inhale 2 [facility] propionate 1-09 Puffs ity of (FLOVENT 00:00: every 12 [place] HFA) 110 00 (twelve) Medical mcg/actuati hours. Branch on inhaler Rinse mouth after each use. levalbutero 2020-09 Yes [id number] .63mg Inhale [facility] l 0.63 mg/3 1-09 0.63 mg 3 ity of mL 00:00: (three) [place] nebulizer 00 times Medical solution daily as Branch needed for Wheezing or Shortness of Breath. clotrimazol 2020-09 Yes [id number] Apply to [facility] e-betametha 1-09 area(s) 2 ity of sone cream 00:00: (two) [place] 00 times Medical daily. Branch cyclobenzap 2020-09 Yes [id number] TAKE 1 [facility] rine 5 mg 1-09 TABLET BY ity o f tablet 00:00: MOUTH [place] 00 EVERY 8 Medical HOURS Branch NEEDED econazole 2020-09 Yes [id number] Apply to [facility] nitrate 1 % -09 area(s) 2 ity of cream 00:00: (two) [place] 00 times Medical daily. Branch albuterol 2020-09 Yes [id number] 2{puff} Inhale 2 [facility] (PROAIR 1-09 Puffs ity of HFA) 90 00:00: every 6 [place] mcg/actuati 00 (six) Medical on inhaler hours as Branc h needed for Wheezing or Shortness of Breath. triamcinolo 2020-09 Yes [id number] Apply to [facility] ne 0.025 % 10-04 area(s) 3 ity of ointment 00:00: (three) [place] 00 times Medical daily. For Branch itching cyanocobala 2020-09 Yes [id number] 1000ug 1 mL by [facility] min 1,000 1-09 Intramuscu ity of mcg/mL 00:00: lar route [place] injection 00 every 2 Medical (two) Branch weeks. levothyroxi 2020-09 Yes [id number] 50ug Take 1 [facility] ne 50 mcg 1-09 tablet by ity o f tablet 00:00: mouth [place] 00 every Medical morning. Branch fluticasone 2020-09 Yes [id number] 2{puff} Inhale 2 [facility] propionate 1-09 Puffs ity of (FLOVENT 00:00: every 12 [place] HFA) 110 00 (twelve) Medical mcg/actuati hours. Branch on inhaler Rinse mouth after each use. levalbutero 2020-09 Yes [id number] .63mg Inhale [facility] l 0.63 mg/3 1-09 0.63 mg 3 ity of mL 00:00: (three) [place] nebulizer 00 times Medical solution daily as Branch needed for Wheezing or Shortness of Breath. clotrimazol 2020-09 Yes [id number] Apply to [facility] e-betametha -09 area(s) 2 it[facility] of sone cream 00:00: (two) [place] 00 times Medical daily. Branch cyclobenzap 2020-09 Yes [id number] TAKE 1 [facility] rine 5 mg 1-09 TABLET BY ity o f tablet 00:00: MOUTH [place] 00 EVERY 8 Medical HOURS Branch NEEDED econazole 2020-09 Yes [id number] Apply to [facility] nitrate 1 % 1-09 area(s) 2 ity of cream 00:00: (two) [place] 00 times Medical daily. Branch albuterol 2020-09 Yes [id number] 2{puff} Inhale 2 [facility] (PROAIR 1-09 Puffs ity of HFA) 90 00:00: every 6 [place] mcg/actuati 00 (six) Medical on inhaler hours as Branc h needed for Wheezing or Shortness of Breath. triamcinolo 2020-09 Yes [id number] Apply to [facility] ne 0.025 % 1-09 area(s) 3 ity of ointment 00:00: (three) [place] 00 times Medical daily. For Branch itching cyanocobala 2020-09 Yes [id number] 1000ug 1 mL by [facility] min 1,000 1-09 Intramuscu ity of mcg/mL 00:00: lar route [place] injection 00 every 2 Medical (two) Branch weeks. levothyroxi 2020-09 Yes [id number] 50ug Take 1 [facility] ne 50 mcg 1-09 tablet by ity o f tablet 00:00: mouth [place] 00 every Medical morning. Branch fluticasone 2020-09 Yes [id number] 2{puff} Inhale 2 [facility] propionate 1-09 Puffs ity of (FLOVENT 00:00: every 12 [place] HFA) 110 00 (twelve) Medical mcg/actuati hours. Branch on inhaler Rinse mouth after each use. levalbutero 2020-09 Yes [id number] .63mg Inhale [facility] l 0.63 mg/3 1-09 0.63 mg 3 ity of mL 00:00: (three) [place] nebulizer 00 times Medical solution daily as Branch needed for Wheezing or Shortness of Breath. clotrimazol 2020-09 Yes [id number] Apply to [facility] e-betametha 1-09 area(s) 2 ity of sone cream 00:00: (two) [place] 00 times Medical daily. Branch cyclobenzap 2020-09 Yes [id number] TAKE 1 [facility] rine 5 mg 1-09 TABLET BY ity o f tablet 00:00: MOUTH [place] 00 EVERY 8 Medical HOURS Branch NEEDED econazole 2020-09 Yes [id number] Apply to [facility] nitrate 1 % -09 area(s) 2 ity of cream 00:00: (two) [place] 00 times Medical daily. Branch albuterol 2020-09 Yes [id number] 2{puff} Inhale 2 [facility] (PROAIR 1-09 Puffs ity of HFA) 90 00:00: every 6 [place] mcg/actuati 00 (six) Medical on inhaler hours as Branc h needed for Wheezing or Shortness of Breath. triamcinolo 2020-09 Yes [id number] Apply to [facility] ne 0.025 % -09 area(s) 3 ity of ointment 00:00: (three) [place] 00 times Medical daily. For Branch itching cyanocobala 2020-09 Yes [id number] 1000ug 1 mL by [facility] min 1,000 -09 Intramuscu ity of mcg/mL 00:00: lar route [place] injection 00 every 2 Medical (two) Branch weeks. levothyroxi 2020-09 Yes [id number] 50ug Take 1 [facility] ne 50 mcg -09 tablet by ity o f tablet 00:00: mouth [place] 00 every Medical morning. Branch fluticasone 2020-09 Yes [id number] 2{puff} Inhale 2 [facility] propionate 1-09 Puffs ity of (FLOVENT 00:00: every 12 [place] HFA) 110 00 (twelve) Medical mcg/actuati hours. Branch on inhaler Rinse mouth after each use. levalbutero 2020-09 Yes [id number] .63mg Inhale [facility] l 0.63 mg/3 1-09 0.63 mg 3 ity of mL 00:00: (three) [place] nebulizer 00 times Medical solution daily as Branch needed for Wheezing or Shortness of Breath. clotrimazol 2020-09 Yes [id number] Apply to [facility] e-betametha -09 area(s) 2 ity of sone cream 00:00: (two) [place] 00 times Medical daily. Branch cyclobenzap 2020-09 Yes [id number] TAKE 1 [facility] rine 5 mg 1-09 TABLET BY ity o f tablet 00:00: MOUTH [place] 00 EVERY 8 Medical HOURS Branch NEEDED econazole 2020-09 Yes [id number] Apply to [facility] nitrate 1 % -09 area(s) 2 ity of cream 00:00: (two) [place] 00 times Medical daily. Branch albuterol 2020-09 Yes [id number] 2{puff} Inhale 2 [facility] (PROAIR 1-09 Puffs ity of HFA) 90 00:00: every 6 [place] mcg/actuati 00 (six) Medical on inhaler hours as Branc h needed for Wheezing or Shortness of Breath. triamcinolo 2020-09 Yes [id number] Apply to [facility] ne 0.025 % 1-09 area(s) 3 ity of ointment 00:00: (three) [place] 00 times Medical daily. For Branch itching cyanocobala 2020-09 Yes [id number] 1000ug 1 mL by [facility] min 1,000 1-09 Intramuscu ity of mcg/mL 00:00: lar route [place] injection 00 every 2 Medical (two) Branch weeks. levothyroxi 2020-09 Yes [id number] 50ug Take 1 [facility] ne 50 mcg 1-09 tablet by ity o f tablet 00:00: mouth [place] 00 every Medical morning. Branch fluticasone 2020-09 Yes [id number] 2{puff} Inhale 2 [facility] propionate 1-09 Puffs ity of (FLOVENT 00:00: every 12 [place] HFA) 110 00 (twelve) Medical mcg/actuati hours. Branch on inhaler Rinse mouth after each use. levalbutero 2020-09 Yes [id number] .63mg Inhale [facility] l 0.63 mg/3 1-09 0.63 mg 3 ity of mL 00:00: (three) [place] nebulizer 00 times Medical solution daily as Branch needed for Wheezing or Shortness of Breath. clotrimazol 2020-09 Yes [id number] Apply to [facility] e-betametha 1-09 area(s) 2 ity of sone cream 00:00: (two) [place] 00 times Medical daily. Branch cyclobenzap 2020-09 Yes [id number] TAKE 1 [facility] rine 5 mg 1-09 TABLET BY ity o f tablet 00:00: MOUTH [place] 00 EVERY 8 Medical HOURS Branch NEEDED econazole 2020-09 Yes [id number] Apply to [facility] nitrate 1 % -09 area(s) 2 ity of cream 00:00: (two) [place] 00 times Medical daily. Branch albuterol 2020-09 Yes [id number] 2{puff} Inhale 2 [facility] (PROAIR 1-09 Puffs ity of HFA) 90 00:00: every 6 [place] mcg/actuati 00 (six) Medical on inhaler hours as Branc h needed for Wheezing or Shortness of Breath. triamcinolo 2020-09 Yes [id number] Apply to [facility] ne 0.025 % -09 area(s) 3 ity of ointment 00:00: (three) [place] 00 times Medical daily. For Branch itching cyanocobala 2020-09 Yes [id number] 1000ug 1 mL by [facility] min 1,000 1-09 Intramuscu ity of mcg/mL 00:00: lar route [place] injection 00 every 2 Medical (two) Branch weeks. levothyroxi 2020-09 Yes [id number] 50ug Take 1 [facility] ne 50 mcg -09 tablet by ity o f tablet 00:00: mouth [place] 00 every Medical morning. Branch fluticasone 2020-09 Yes [id number] 2{puff} Inhale 2 [facility] propionate 1-09 Puffs ity of (FLOVENT 00:00: every 12 [place] HFA) 110 00 (twelve) Medical mcg/actuati hours. Branch on inhaler Rinse mouth after each use. levalbutero 2020-09 Yes [id number] .63mg Inhale [facility] l 0.63 mg/3 1-09 0.63 mg 3 ity of mL 00:00: (three) [place] nebulizer 00 times Medical solution daily as Branch needed for Wheezing or Shortness of Breath. clotrimazol 2020-09 Yes [id number] Apply to [facility] e-betametha - area(s) 2 ity of sone cream 00:00: (two) [place] 00 times Medical daily. Branch cyclobenzap 2020-09 Yes [id number] TAKE 1 [facility] rine 5 mg 1-09 TABLET BY ity o f tablet 00:00: MOUTH [place] 00 EVERY 8 Medical HOURS Branch NEEDED econazole 2020-09 Yes [id number] Apply to [facility] nitrate 1 % -09 area(s) 2 ity of cream 00:00: (two) [place] 00 times Medical daily. Branch albuterol 2020-09 Yes [id number] 2{puff} Inhale 2 [facility] (PROAIR 1-09 Puffs ity of HFA) 90 00:00: every 6 [place] mcg/actuati 00 (six) Medical on inhaler hours as Branc h needed for Wheezing or Shortness of Breath. triamcinolo 2020-09 Yes [id number] Apply to [facility] ne 0.025 % 10-04 area(s) 3 ity of ointment 00:00: (three) [place] 00 times Medical daily. For Branch itching cyanocobala 2020-09 Yes [id number] 1000ug 1 mL by [facility] min 1,000 -09 Intramuscu ity of mcg/mL 00:00: lar route [place] injection 00 every 2 Medical (two) Branch weeks. levothyroxi 2020-09 Yes [id number] 50ug Take 1 [facility] ne 50 mcg -09 tablet by ity o f tablet 00:00: mouth [place] 00 every Medical morning. Branch fluticasone 2020-09 Yes [id number] 2{puff} Inhale 2 [facility] propionate -09 Puffs ity of (FLOVENT 00:00: every 12 [place] HFA) 110 00 (twelve) Medical mcg/actuati hours. Branch on inhaler Rinse mouth after each use. levalbutero 2020-09 Yes [id number] .63mg Inhale [facility] l 0.63 mg/3 -09 0.63 mg 3 ity of mL 00:00: (three) [place] nebulizer 00 times Medical solution daily as Branch needed for Wheezing or Shortness of Breath. clotrimazol 2020-09 Yes [id number] Apply to [facility] e-betametha 10-04 area(s) 2 ity of sone cream 00:00: (two) [place] 00 times Medical daily. Branch cyclobenzap 2020-09 Yes [id number] TAKE 1 [facility] rine 5 mg -09 TABLET BY ity o f tablet 00:00: MOUTH [place] 00 EVERY 8 Medical HOURS Branch NEEDED econazole 2020-09 Yes [id number] Apply to [facility] nitrate 1 % -09 area(s) 2 ity of cream 00:00: (two) [place] 00 times Medical daily. Branch albuterol 2020-09 Yes [id number] 2{puff} Inhale 2 [facility] (PROAIR 1-09 Puffs ity of HFA) 90 00:00: every 6 [place] mcg/actuati 00 (six) Medical on inhaler hours as Branc h needed for Wheezing or Shortness of Breath. triamcinolo 2020-09 Yes [id number] Apply to [facility] ne 0.025 % 1-09 area(s) 3 ity of ointment 00:00: (three) [place] 00 times Medical daily. For Branch itching cyanocobala 2020-09 Yes [id number] 1000ug 1 mL by [facility] min 1,000 1-09 Intramuscu ity of mcg/mL 00:00: lar route [place] injection 00 every 2 Medical (two) Branch weeks. levothyroxi 2020-09 Yes [id number] 50ug Take 1 [facility] ne 50 mcg 1-09 tablet by ity o f tablet 00:00: mouth [place] 00 every Medical morning. Branch fluticasone 2020-09 Yes [id number] 2{puff} Inhale 2 [facility] propionate 1-09 Puffs ity of (FLOVENT 00:00: every 12 [place] HFA) 110 00 (twelve) Medical mcg/actuati hours. Branch on inhaler Rinse mouth after each use. levalbutero 2020-09 Yes [id number] .63mg Inhale [facility] l 0.63 mg/3 1-09 0.63 mg 3 ity of mL 00:00: (three) [place] nebulizer 00 times Medical solution daily as Branch needed for Wheezing or Shortness of Breath. clotrimazol 2020-09 Yes [id number] Apply to [facility] e-betametha 09 area(s) 2 ity of sone cream 00:00: (two) [place] 00 times Medical daily. Branch cyclobenzap 2020-09 Yes [id number] TAKE 1 [facility] rine 5 mg 1-09 TABLET BY ity o f tablet 00:00: MOUTH [place] 00 EVERY 8 Medical HOURS Branch NEEDED econazole 2020-09 Yes [id number] Apply to [facility] nitrate 1 % -09 area(s) 2 ity of cream 00:00: (two) [place] 00 times Medical daily. Branch albuterol 2020-09 Yes [id number] 2{puff} Inhale 2 [facility] (PROAIR 1-09 Puffs ity of HFA) 90 00:00: every 6 [place] mcg/actuati 00 (six) Medical on inhaler hours as Branc h needed for Wheezing or Shortness of Breath. triamcinolo 2020-09 Yes [id number] Apply to [facility] ne 0.025 % 10-04 area(s) 3 ity of ointment 00:00: (three) [place] 00 times Medical daily. For Branch itching rosuvastati 2020-09 Yes [id number] 10mg Take 1 [facility] n 10 mg 10-04 tablet by ity of tablet 00:00: mouth at [place] 00 bedtime. Medical Branch cyanocobala 2020-09 Yes [id number] 1000ug 1 mL by [facility] min 1,000 -09 Intramuscu ity of mcg/mL 00:00: lar route [place] injection 00 every 2 Medical (two) Branch weeks. levothyroxi 2020-09 Yes [id number] 50ug Take 1 [facility] ne 50 mcg 10-04 tablet by ity o f tablet 00:00: mouth [place] 00 every Medical morning. Branch fluticasone 2020-09 Yes [id number] 2{puff} Inhale 2 [facility] propionate -09 Puffs ity of (FLOVENT 00:00: every 12 [place] HFA) 110 00 (twelve) Medical mcg/actuati hours. Branch on inhaler Rinse mouth after each use. levalbutero 2020-09 Yes [id number] .63mg Inhale [facility] l 0.63 mg/3 -09 0.63 mg 3 ity of mL 00:00: (three) [place] nebulizer 00 times Medical solution daily as Branch needed for Wheezing or Shortness of Breath. losartan 50 2020-09 Yes [id number] 50mg Take 1 [facility] mg tablet 10-04 tablet by ity o f 00:00: mouth 2 [place] 00 (two) Medical times Branch daily. clotrimazol 2020-09 Yes [id number] Apply to [facility] e-betametha 10-04 area(s) 2 ity of sone cream 00:00: (two) [place] 00 times Medical daily. Branch cyclobenzap 2020-09 Yes [id number] TAKE 1 [facility] rine 5 mg -09 TABLET BY ity o f tablet 00:00: MOUTH [place] 00 EVERY 8 Medical HOURS Branch NEEDED econazole 2020-09 Yes [id number] Apply to [facility] nitrate 1 % 10-04 area(s) 2 ity of cream 00:00: (two) [place] 00 times Medical daily. Branch albuterol 2020-09 Yes [id number] 2{puff} Inhale 2 [facility] (PROAIR 1-09 Puffs ity of HFA) 90 00:00: every 6 [place] mcg/actuati 00 (six) Medical on inhaler hours as Branc h needed for Wheezing or Shortness of Breath. triamcinolo 2020-09 Yes [id number] Apply to [facility] ne 0.025 % 1-09 area(s) 3 ity of ointment 00:00: (three) [place] 00 times Medical daily. For Branch itching diltiazem 2020-09 Yes [id number] 120mg Take 1 [facility] (CARTIA XT) -09 capsule by it y of 120 mg 24 00:00: mouth 2 [place] hr capsule 00 (two) Medical times Branch daily. rosuvastati 2020-09 Yes [id number] 10mg Take 1 [facility] n 10 mg -09 tablet by ity of tablet 00:00: mouth at [place] 00 bedtime. Medical Branch cyanocobala 2020-09 Yes [id number] 1000ug 1 mL by [facility] min 1,000 1-09 Intramuscu ity of mcg/mL 00:00: lar route [place] injection 00 every 2 Medical (two) Branch weeks. levothyroxi 2020-09 Yes [id number] 50ug Take 1 [facility] ne 50 mcg -09 tablet by ity o f tablet 00:00: mouth [place] 00 every Medical morning. Branch fluticasone 2020-09 Yes [id number] 2{puff} Inhale 2 [facility] propionate 1-09 Puffs ity of (FLOVENT 00:00: every 12 [place] HFA) 110 00 (twelve) Medical mcg/actuati hours. Branch on inhaler Rinse mouth after each use. levalbutero 2020-09 Yes [id number] .63mg Inhale [facility] l 0.63 mg/3 1-09 0.63 mg 3 ity of mL 00:00: (three) [place] nebulizer 00 times Medical solution daily as Branch needed for Wheezing or Shortness of Breath. losartan 50 2020-09 Yes [id number] 50mg Take 1 [facility] mg tablet 1-09 tablet by ity o f 00:00: mouth 2 [place] 00 (two) Medical times Branch daily. clotrimazol 2020-09 Yes [id number] Apply to [facility] e-betametha 1-09 area(s) 2 ity of sone cream 00:00: (two) [place] 00 times Medical daily. Branch cyclobenzap 2020-09 Yes [id number] TAKE 1 [facility] rine 5 mg -09 TABLET BY ity o f tablet 00:00: MOUTH [place] 00 EVERY 8 Medical HOURS Branch NEEDED econazole 2020-09 Yes [id number] Apply to [facility] nitrate 1 % 10-04 area(s) 2 ity of cream 00:00: (two) [place] 00 times Medical daily. Branch albuterol 2020-09 Yes [id number] 2{puff} Inhale 2 [facility] (PROAIR 1-09 Puffs ity of HFA) 90 00:00: every 6 [place] mcg/actuati 00 (six) Medical on inhaler hours as Branc h needed for Wheezing or Shortness of Breath. triamcinolo 2020-09 Yes [id number] Apply to [facility] ne 0.025 % 10-04 area(s) 3 ity of ointment 00:00: (three) [place] 00 times Medical daily. For Branch itching diltiazem 2020-09 Yes [id number] 120mg Take 1 [facility] n[facility] (CARTIA XT) 09 capsule by it y of 120 mg 24 00:00: mouth 2 [place] hr capsule 00 (two) Medical times Branch daily. cyanocobala 2020-09 Yes [id number] 1000ug 1 mL by [facility] min 1,000 -09 Intramuscu ity of mcg/mL 00:00: lar route [place] injection 00 every 2 Medical (two) Branch weeks. levothyroxi 2020-09 Yes [id number] 50ug Take 1 [facility] ne 50 mcg 09 tablet by ity o f tablet 00:00: mouth [place] 00 every Medical morning. Branch fluticasone 2020-09 Yes [id number] 2{puff} Inhale 2 [facility] propionate 1-09 Puffs ity of (FLOVENT 00:00: every 12 [place] HFA) 110 00 (twelve) Medical mcg/actuati hours. Branch on inhaler Rinse mouth after each use. levalbutero 2020-09 Yes [id number] .63mg Inhale [facility] l 0.63 mg/3 1-09 0.63 mg 3 ity of mL 00:00: (three) [place] nebulizer 00 times Medical solution daily as Branch needed for Wheezing or Shortness of Breath. losartan 50 2020-09 Yes [id number] 50mg Take 1 [facility] mg tablet 1-09 tablet by ity o f 00:00: mouth 2 [place] 00 (two) Medical times Branch daily. clotrimazol 2020-09 Yes [id number] Apply to [facility] e-betametha 09 area(s) 2 ity of sone cream 00:00: (two) [place] 00 times Medical daily. Branch cyclobenzap 2020-09 Yes [id number] TAKE 1 [facility] rine 5 mg -09 TABLET BY ity o f tablet 00:00: MOUTH [place] 00 EVERY 8 Medical HOURS Branch NEEDED econazole 2020-09 Yes [id number] Apply to [facility] nitrate 1 % 10-04 area(s) 2 ity of cream 00:00: (two) [place] 00 times Medical daily. Branch albuterol 2020-09 Yes [id number] 2{puff} Inhale 2 [facility] (PROAIR 1-09 Puffs ity of HFA) 90 00:00: every 6 [place] mcg/actuati 00 (six) Medical on inhaler hours as Branc h needed for Wheezing or Shortness of Breath. triamcinolo 2020-09 Yes [id number] Apply to [facility] ne 0.025 % 10-04 area(s) 3 ity of ointment 00:00: (three) [place] 00 times Medical daily. For Branch itching diltiazem 2020-09 Yes [id number] 120mg Take 1 [facility] (CARTIA XT) 09 capsule by it y of 120 mg 24 00:00: mouth 2 [place] hr capsule 00 (two) Medical times Branch daily. cyanocobala 2020-09 Yes [id number] 1000ug 1 mL by [facility] min 1,000 -09 Intramuscu ity of mcg/mL 00:00: lar route [place] injection 00 every 2 Medical (two) Branch weeks. levothyroxi 2020-09 Yes [id number] 50ug Take 1 [facility] ne 50 mcg -09 tablet by ity o f tablet 00:00: mouth [place] 00 every Medical morning. Branch fluticasone 2020-09 Yes [id number] 2{puff} Inhale 2 [facility] propionate 1-09 Puffs ity of (FLOVENT 00:00: every 12 [place] HFA) 110 00 (twelve) Medical mcg/actuati hours. Branch on inhaler Rinse mouth after each use. levalbutero 2020-09 Yes [id number] .63mg Inhale [facility] l 0.63 mg/3 1-09 0.63 mg 3 ity of mL 00:00: (three) [place] nebulizer 00 times Medical solution daily as Branch needed for Wheezing or Shortness of Breath. losartan 50 2020-09 Yes [id number] 50mg Take 1 [facility] mg tablet 1-09 tablet by ity o f 00:00: mouth 2 [place] 00 (two) Medical times Branch daily. clotrimazol 2020-09 Yes [id number] Apply to [facility] e-betametha -09 area(s) 2 ity of sone cream 00:00: (two) [place] 00 times Medical daily. Branch cyclobenzap 2020-09 Yes [id number] TAKE 1 [facility] rine 5 mg -09 TABLET BY ity o f tablet 00:00: MOUTH [place] 00 EVERY 8 Medical HOURS Branch NEEDED econazole 2020-09 Yes [id number] Apply to [facility] nitrate 1 % 09 area(s) 2 ity of cream 00:00: (two) [place] 00 times Medical daily. Branch albuterol 2020-09 Yes [id number] 2{puff} Inhale 2 [facility] (PROAIR 1-09 Puffs ity of HFA) 90 00:00: every 6 [place] mcg/actuati 00 (six) Medical on inhaler hours as Branc h needed for Wheezing or Shortness of Breath. triamcinolo 2020-09 Yes [id number] Apply to [facility] ne 0.025 % - area(s) 3 ity of ointment 00:00: (three) [place] 00 times Medical daily. For Branch itching diltiazem 2020-09 Yes [id number] 120mg Take 1 [facility] (CARTIA XT) -09 capsule by it y of 120 mg 24 00:00: mouth 2 [place] hr capsule 00 (two) Medical times Branch daily. cyanocobala 2020-09 Yes [id number] 1000ug 1 mL by [facility] min 1,000 -09 Intramuscu ity of mcg/mL 00:00: lar route [place] injection 00 every 2 Medical (two) Branch weeks. levothyroxi 2020-09 Yes [id number] 50ug Take 1 [facility] ne 50 mcg 1-09 tablet by ity o f tablet 00:00: mouth [place] 00 every Medical morning. Branch fluticasone 2020-09 Yes [id number] 2{puff} Inhale 2 [facility] propionate 1-09 Puffs ity of (FLOVENT 00:00: every 12 [place] HFA) 110 00 (twelve) Medical mcg/actuati hours. Branch on inhaler Rinse mouth after each use. levalbutero 2020-09 Yes [id number] .63mg Inhale [facility] l 0.63 mg/3 1-09 0.63 mg 3 ity of mL 00:00: (three) [place] nebulizer 00 times Medical solution daily as Branch needed for Wheezing or Shortness of Breath. losartan 50 2020-09 Yes [id number] 50mg Take 1 [facility] mg tablet 1-09 tablet by ity o f 00:00: mouth 2 [place] 00 (two) Medical times Branch daily. clotrimazol 2020-09 Yes [id number] Apply to [facility] e-betametha 09 area(s) 2 ity of sone cream 00:00: (two) [place] 00 times Medical daily. Branch cyclobenzap 2020-09 Yes [id number] TAKE 1 [facility] rine 5 mg 1-09 TABLET BY ity o f tablet 00:00: MOUTH [place] 00 EVERY 8 Medical HOURS Branch NEEDED econazole 2020-09 Yes [id number] Apply to [facility] nitrate 1 % 09 area(s) 2 ity of cream 00:00: (two) [place] 00 times Medical daily. Branch albuterol 2020-09 Yes [id number] 2{puff} Inhale 2 [facility] (PROAIR 1-09 Puffs ity of HFA) 90 00:00: every 6 [place] mcg/actuati 00 (six) Medical on inhaler hours as Branc h needed for Wheezing or Shortness of Breath. triamcinolo 2020-09 Yes [id number] Apply to [facility] ne 0.025 % -09 area(s) 3 ity of ointment 00:00: (three) [place] 00 times Medical daily. For Branch itching diltiazem 2020-09 Yes [id number] 120mg Take 1 [facility] (CARTIA XT) -09 capsule by it y of 120 mg 24 00:00: mouth 2 [place] hr capsule 00 (two) Medical times Branch daily. cyanocobala 2020-09 Yes [id number] 1000ug 1 mL by [facility] min 1,000 1-09 Intramuscu ity of mcg/mL 00:00: lar route [place] injection 00 every 2 Medical (two) Branch weeks. levothyroxi 2020-09 Yes [id number] 50ug Take 1 [facility] ne 50 mcg 1-09 tablet by ity o f tablet 00:00: mouth [place] 00 every Medical morning. Branch fluticasone 2020-09 Yes [id number] 2{puff} Inhale 2 [facility] propionate 1-09 Puffs ity of (FLOVENT 00:00: every 12 [place] HFA) 110 00 (twelve) Medical mcg/actuati hours. Branch on inhaler Rinse mouth after each use. levalbutero 2020-09 Yes [id number] .63mg Inhale [facility] l 0.63 mg/3 1-09 0.63 mg 3 ity of mL 00:00: (three) [place] nebulizer 00 times Medical solution daily as Branch needed for Wheezing or Shortness of Breath. losartan 50 2020-09 Yes [id number] 50mg Take 1 [facility] mg tablet 1-09 tablet by ity o f 00:00: mouth 2 [place] 00 (two) Medical times Branch daily. clotrimazol 2020-09 Yes [id number] Apply to [facility] e-betametha 1-09 area(s) 2 ity of sone cream 00:00: (two) [place] 00 times Medical daily. Branch cyclobenzap 2020-09 Yes [id number] TAKE 1 [facility] rine 5 mg 1-09 TABLET BY ity o f tablet 00:00: MOUTH [place] 00 EVERY 8 Medical HOURS Branch NEEDED econazole 2020-09 Yes [id number] Apply to [facility] nitrate 1 % 1-09 area(s) 2 ity of cream 00:00: (two) [place] 00 times Medical daily. Branch albuterol 2020-09 Yes [id number] 2{puff} Inhale 2 [facility] (PROAIR 1-09 Puffs ity of HFA) 90 00:00: every 6 [place] mcg/actuati 00 (six) Medical on inhaler hours as Branc h needed for Wheezing or Shortness of Breath. triamcinolo 2020-09 Yes [id number] Apply to [facility] ne 0.025 % 10-04 area(s) 3 ity of ointment 00:00: (three) [place] 00 times Medical daily. For Branch itching diltiazem 2020-09 Yes [id number] 120mg Take 1 [facility] (CARTIA XT) 10-04 capsule by it y of 120 mg 24 00:00: mouth 2 [place] hr capsule 00 (two) Medical times Branch daily. cyanocobala 2020-09 Yes [id number] 1000ug 1 mL by [facility] min 1,000 10-04 Intramuscu ity of mcg/mL 00:00: lar route [place] injection 00 every 2 Medical (two) Branch weeks. levothyroxi 2020-09 Yes [id number] 50ug Take 1 [facility] ne 50 mcg 10-04 tablet by ity o f tablet 00:00: mouth [place] 00 every Medical morning. Branch fluticasone 2020-09 Yes [id number] 2{puff} Inhale 2 [facility] propionate -09 Puffs ity of (FLOVENT 00:00: every 12 [place] HFA) 110 00 (twelve) Medical mcg/actuati hours. Branch on inhaler Rinse mouth after each use. levalbutero 2020-09 Yes [id number] .63mg Inhale [facility] l 0.63 mg/3 -09 0.63 mg 3 ity of mL 00:00: (three) [place] nebulizer 00 times Medical solution daily as Branch needed for Wheezing or Shortness of Breath. losartan 50 2020-09 Yes [id number] 50mg Take 1 [facility] mg tablet 09 tablet by ity o f 00:00: mouth 2 [place] 00 (two) Medical times Branch daily. clotrimazol 2020-09 Yes [id number] Apply to [facility] e-betametha 10-04 area(s) 2 ity of sone cream 00:00: (two) [place] 00 times Medical daily. Branch cyclobenzap 2020-09 Yes [id number] TAKE 1 [facility] rine 5 mg -09 TABLET BY ity o f tablet 00:00: MOUTH [place] 00 EVERY 8 Medical HOURS Branch NEEDED econazole 2020-09 Yes [id number] Apply to [facility] nitrate 1 % 10-04 area(s) 2 ity of cream 00:00: (two) [place] 00 times Medical daily. Branch albuterol 2020-09 Yes [id number] 2{puff} Inhale 2 [facility] (PROAIR 1-09 Puffs ity of HFA) 90 00:00: every 6 [place] mcg/actuati 00 (six) Medical on inhaler hours as Branc h needed for Wheezing or Shortness of Breath. triamcinolo 2020-09 Yes [id number] Apply to [facility] ne 0.025 % 1-09 area(s) 3 ity of ointment 00:00: (three) [place] 00 times Medical daily. For Branch itching diltiazem 2020-09 Yes [id number] 120mg Take 1 [facility] (CARTIA XT) 09 capsule by it y of 120 mg 24 00:00: mouth 2 [place] hr capsule 00 (two) Medical times Branch daily. cyanocobala 2020-09 Yes [id number] 1000ug 1 mL by [facility] min 1,000 1-09 Intramuscu ity of mcg/mL 00:00: lar route [place] injection 00 every 2 Medical (two) Branch weeks. levothyroxi 2020-09 Yes [id number] 50ug Take 1 [facility] ne 50 mcg -09 tablet by ity o f tablet 00:00: mouth [place] 00 every Medical morning. Branch fluticasone 2020-09 Yes [id number] 2{puff} Inhale 2 [facility] propionate 1-09 Puffs ity of (FLOVENT 00:00: every 12 [place] HFA) 110 00 (twelve) Medical mcg/actuati hours. Branch on inhaler Rinse mouth after each use. levalbutero 2020-09 Yes [id number] .63mg Inhale [facility] l 0.63 mg/3 1-09 0.63 mg 3 ity of mL 00:00: (three) [place] nebulizer 00 times Medical solution daily as Branch needed for Wheezing or Shortness of Breath. losartan 50 2020-09 Yes [id number] 50mg Take 1 [facility] mg tablet -09 tablet by ity o f 00:00: mouth 2 [place] 00 (two) Medical times Branch daily. clotrimazol 2020-09 Yes [id number] Apply to [facility] e-betametha -09 area(s) 2 ity of sone cream 00:00: (two) [place] 00 times Medical daily. Branch cyclobenzap 2020-09 Yes [id number] TAKE 1 [facility] rine 5 mg 1-09 TABLET BY ity o f tablet 00:00: MOUTH [place] 00 EVERY 8 Medical HOURS Branch NEEDED econazole 2020-09 Yes [id number] Apply to [facility] nitrate 1 % 1-09 area(s) 2 ity of cream 00:00: (two) [place] 00 times Medical daily. Branch albuterol 2020-09 Yes [id number] 2{puff} Inhale 2 [facility] (PROAIR 1-09 Puffs ity of HFA) 90 00:00: every 6 [place] mcg/actuati 00 (six) Medical on inhaler hours as Branc h needed for Wheezing or Shortness of Breath. triamcinolo 2020-09 Yes [id number] Apply to [facility] ne 0.025 % 1-09 area(s) 3 ity of ointment 00:00: (three) [place] 00 times Medical daily. For Branch itching diltiazem 2020-09 Yes [id number] 120mg Take 1 [facility] n[facility] (CARTIA XT) 1-09 capsule by it y of 120 mg 24 00:00: mouth 2 [place] hr capsule 00 (two) Medical times Branch daily. cyanocobala 2020-09 Yes [id number] 1000ug 1 mL by [facility] min 1,000 1-09 Intramuscu ity of mcg/mL 00:00: lar route [place] injection 00 every 2 Medical (two) Branch weeks. levothyroxi 2020-09 Yes [id number] 50ug Take 1 [facility] ne 50 mcg 1-09 tablet by ity o f tablet 00:00: mouth [place] 00 every Medical morning. Branch fluticasone 2020-09 Yes [id number] 2{puff} Inhale 2 [facility] propionate 1-09 Puffs ity of (FLOVENT 00:00: every 12 [place] HFA) 110 00 (twelve) Medical mcg/actuati hours. Branch on inhaler Rinse mouth after each use. levalbutero 2020-09 Yes [id number] .63mg Inhale [facility] l 0.63 mg/3 1-09 0.63 mg 3 ity of mL 00:00: (three) [place] nebulizer 00 times Medical solution daily as Branch needed for Wheezing or Shortness of Breath. losartan 50 2020-09 Yes [id number] 50mg Take 1 [facility] mg tablet 1-09 tablet by ity o f 00:00: mouth 2 [place] 00 (two) Medical times Branch daily. clotrimazol 2020-09 Yes [id number] Apply to [facility] e-betametha 10-04 area(s) 2 ity of sone cream 00:00: (two) [place] 00 times Medical daily. Branch cyclobenzap 2020-09 Yes [id number] TAKE 1 [facility] rine 5 mg -09 TABLET BY ity o f tablet 00:00: MOUTH [place] 00 EVERY 8 Medical HOURS Branch NEEDED econazole 2020-09 Yes [id number] Apply to [facility] nitrate 1 % 09 area(s) 2 ity of cream 00:00: (two) [place] 00 times Medical daily. Branch albuterol 2020-09 Yes [id number] 2{puff} Inhale 2 [facility] (PROAIR -09 Puffs ity of HFA) 90 00:00: every 6 [place] mcg/actuati 00 (six) Medical on inhaler hours as Branc h needed for Wheezing or Shortness of Breath. triamcinolo 2020-09 Yes [id number] Apply to [facility] ne 0.025 % 10-04 area(s) 3 ity of ointment 00:00: (three) [place] 00 times Medical daily. For Branch itching diltiazem 2020-09 Yes [id number] 120mg Take 1 [facility] (CARTIA XT) 10-04 capsule by it y of 120 mg 24 00:00: mouth 2 [place] hr capsule 00 (two) Medical times Branch daily. cyanocobala 2020-09 Yes [id number] 1000ug 1 mL by [facility] min 1,000 10-04 Intramuscu ity of mcg/mL 00:00: lar route [place] injection 00 every 2 Medical (two) Branch weeks. levothyroxi 2020-09 Yes [id number] 50ug Take 1 [facility] ne 50 mcg 09 tablet by ity o f tablet 00:00: mouth [place] 00 every Medical morning. Branch fluticasone 2020-09 Yes [id number] 2{puff} Inhale 2 [facility] propionate 1-09 Puffs ity of (FLOVENT 00:00: every 12 [place] HFA) 110 00 (twelve) Medical mcg/actuati hours. Branch on inhaler Rinse mouth after each use. levalbutero 2020-09 Yes [id number] .63mg Inhale [facility] l 0.63 mg/3 1-09 0.63 mg 3 ity of mL 00:00: (three) [place] nebulizer 00 times Medical solution daily as Branch needed for Wheezing or Shortness of Breath. losartan 50 2020-09 Yes [id number] 50mg Take 1 [facility] mg tablet -09 tablet by ity o f 00:00: mouth 2 [place] 00 (two) Medical times Branch daily. clotrimazol 2020-09 Yes [id number] Apply to [facility] e-betametha 10-04 area(s) 2 ity of sone cream 00:00: (two) [place] 00 times Medical daily. Branch cyclobenzap 2020-09 Yes [id number] TAKE 1 [facility] rine 5 mg 09 TABLET BY ity o f tablet 00:00: MOUTH [place] 00 EVERY 8 Medical HOURS Branch NEEDED econazole 2020-09 Yes [id number] Apply to [facility] nitrate 1 % 10-04 area(s) 2 ity of cream 00:00: (two) [place] 00 times Medical daily. Branch albuterol 2020-09 Yes [id number] 2{puff} Inhale 2 [facility] (PROAIR -09 Puffs ity of HFA) 90 00:00: every 6 [place] mcg/actuati 00 (six) Medical on inhaler hours as Branc h needed for Wheezing or Shortness of Breath. triamcinolo 2020-09 Yes [id number] Apply to [facility] ne 0.025 % 10-04 area(s) 3 ity of ointment 00:00: (three) [place] 00 times Medical daily. For Branch itching diltiazem 2020-09 Yes [id number] 120mg Take 1 [facility] (CARTIA XT) 09 capsule by it y of 120 mg 24 00:00: mouth 2 [place] hr capsule 00 (two) Medical times Branch daily. cyanocobala 2020-09 Yes [id number] 1000ug 1 mL by [facility] min 1,000 -09 Intramuscu ity of mcg/mL 00:00: lar route [place] injection 00 every 2 Medical (two) Branch weeks. levothyroxi 2020-09 Yes [id number] 50ug Take 1 [facility] ne 50 mcg -09 tablet by ity o f tablet 00:00: mouth [place] 00 every Medical morning. Branch fluticasone 2020-09 Yes [id number] 2{puff} Inhale 2 [facility] propionate 1-09 Puffs ity of (FLOVENT 00:00: every 12 [place] HFA) 110 00 (twelve) Medical mcg/actuati hours. Branch on inhaler Rinse mouth after each use. levalbutero 2020-09 Yes [id number] .63mg Inhale [facility] l 0.63 mg/3 1-09 0.63 mg 3 ity of mL 00:00: (three) [place] nebulizer 00 times Medical solution daily as Branch needed for Wheezing or Shortness of Breath. losartan 50 2020-09 Yes [id number] 50mg Take 1 [facility] mg tablet 09 tablet by ity o f 00:00: mouth 2 [place] 00 (two) Medical times Branch daily. clotrimazol 2020-09 Yes [id number] Apply to [facility] e-betametha 09 area(s) 2 ity of sone cream 00:00: (two) [place] 00 times Medical daily. Branch cyclobenzap 2020-09 Yes [id number] TAKE 1 [facility] rine 5 mg 09 TABLET BY ity o f tablet 00:00: MOUTH [place] 00 EVERY 8 Medical HOURS Branch NEEDED econazole 2020-09 Yes [id number] Apply to [facility] nitrate 1 % 10-04 area(s) 2 ity of cream 00:00: (two) [place] 00 times Medical daily. Branch albuterol 2020-09 Yes [id number] 2{puff} Inhale 2 [facility] (PROAIR 1-09 Puffs ity of HFA) 90 00:00: every 6 [place] mcg/actuati 00 (six) Medical on inhaler hours as Branc h needed for Wheezing or Shortness of Breath. triamcinolo 2020-09 Yes [id number] Apply to [facility] ne 0.025 % 10-04 area(s) 3 ity of ointment 00:00: (three) [place] 00 times Medical daily. For Branch itching diltiazem 2020-09 Yes [id number] 120mg Take 1 [facility] (CARTIA XT) -09 capsule by it y of 120 mg 24 00:00: mouth 2 [place] hr capsule 00 (two) Medical times Branch daily. losartan 50 2020-09- No [id number] 50mg Take 1 [facility] mg tablet 10-04 07-20 tablet by ity of 00:00: 00:00 mouth 2 [place] 00 :00 (two) Medical times Branch daily. diltiazem 2020-09- No [id number] 120mg Take 1 [facility] (CARTIA XT) 10-04 07-20 capsule by i ty of 120 mg 24 00:00: 00:00 mouth 2 [place] hr capsule 00 :00 (two) Medical times Branch daily. rosuvastati 2020-09- No [id number] 10mg Take 1 [facility] n 10 mg 10-04 tablet by ity of tablet 00:00: 00:00 mouth at [place] 00 :00 bedtime. Medical Branch rosuvastati 2020-09- No [id number] 10mg Take 1 [facility] n 10 mg 10-04 tablet by ity of tablet 00:00: 00:00 mouth at [place] 00 :00 bedtime. Medical Branch proMETHazin 2019-09 Yes TAKE 1 [facility] ers e 25 mg 0-22 TABLET BY ity of tablet 00:00: MOUTH [place] 00 EVERY 6 Medical HOURS Branch NEEDED FOR NAUSEA proMETHazin 2019-09 Yes TAKE 1 [facility] ers e 25 mg 0-22 TABLET BY ity of tablet 00:00: MOUTH [place] 00 EVERY 6 Medical HOURS Branch NEEDED FOR NAUSEA proMETHazin 2019-09 Yes TAKE 1 [facility] ers e 25 mg 0-22 TABLET BY ity of tablet 00:00: MOUTH [place] 00 EVERY 6 Medical HOURS Branch NEEDED FOR NAUSEA proMETHazin 2019-09 Yes TAKE 1 [facility] ers e 25 mg 0-22 TABLET BY ity of tablet 00:00: MOUTH [place] 00 EVERY 6 Medical HOURS Branch NEEDED [...] [place] 00 Medical Branch FERROUS 2018-0 Yes [id number] TAKE ONE [facility] vers SULFATE 325 8-13 TABLET BY ity of mg (65 mg 00:00: MOUTH [place] iron) 00 THREE Medical tablet TIMES Branch DAILY WITH MEALS FERROUS [id number] Yes [id number] TAKE ONE [facility] vers SULFATE 325 8-13 TABLET BY ity of mg (65 mg 00:00: MOUTH [place] iron) 00 THREE Medical tablet TIMES Branch DAILY WITH MEALS FERROUS 2018-0 Yes [id number] TAKE ONE [facility] vers SULFATE 325 8-13 TABLET BY ity of mg (65 mg 00:00: MOUTH [place] iron) 00 THREE Medical tablet TIMES Branch DAILY WITH MEALS FERROUS 2017-0 Yes [id number] TAKE ONE [facility] vers SULFATE 325 8-13 TABLET BY ity of mg (65 mg 00:00: MOUTH [place] iron) 00 THREE Medical tablet TIMES Branch DAILY WITH MEALS FERROUS Yes [id number] TAKE ONE [facility] vers SULFATE 325 8-13 TABLET BY ity of mg (65 mg 00:00: MOUTH [place] iron) 00 THREE Medical tablet TIMES Branch DAILY WITH MEALS FERROUS Yes [id number] TAKE ONE [facility] vers SULFATE 325 8-13 TABLET BY ity of mg (65 mg 00:00: MOUTH [place] iron) 00 THREE Medical tablet TIMES Branch DAILY WITH MEALS FERROUS Yes [id number] TAKE ONE [facility] vers SULFATE 325 8-13 TABLET BY ity of mg (65 mg 00:00: MOUTH [place] iron) 00 THREE Medical tablet TIMES Branch DAILY WITH MEALS FERROUS Yes [id number] TAKE ONE [facility] vers SULFATE 325 8-13 TABLET BY ity of mg (65 mg 00:00: MOUTH [place] iron) 00 THREE Medical tablet TIMES Branch DAILY WITH MEALS FERROUS Yes [id number] TAKE ONE [facility] vers SULFATE 325 8-13 TABLET BY ity of mg (65 mg 00:00: MOUTH [place] iron) 00 THREE Medical tablet TIMES Branch DAILY WITH MEALS FERROUS Yes [id number] TAKE ONE [facility] vers SULFATE 325 8-13 TABLET BY ity of mg (65 mg 00:00: MOUTH [place] iron) 00 THREE Medical tablet TIMES Branch DAILY WITH MEALS FERROUS Yes [id number] TAKE ONE [facility] vers SULFATE 325 8-13 TABLET BY ity of mg (65 mg 00:00: MOUTH [place] iron) 00 THREE Medical tablet TIMES Branch DAILY WITH MEALS FERROUS Yes [id number] TAKE ONE [facility] vers SULFATE 325 8-13 TABLET BY ity of mg (65 mg 00:00: MOUTH [place] iron) 00 THREE Medical tablet TIMES Branch DAILY WITH MEALS FERROUS Yes [id number] TAKE ONE [facility] vers SULFATE 325 8-13 TABLET BY ity of mg (65 mg 00:00: MOUTH [place] iron) 00 THREE Medical tablet TIMES Branch DAILY WITH MEALS FERROUS Yes [id number] TAKE ONE [facility] vers SULFATE 325 8-13 TABLET BY ity of mg (65 mg 00:00: MOUTH [place] iron) 00 THREE Medical tablet TIMES Branch DAILY WITH MEALS FERROUS Yes [id number] TAKE ONE [facility] vers SULFATE 325 8-13 TABLET BY ity of mg (65 mg 00:00: MOUTH [place] iron) 00 THREE Medical tablet TIMES Branch DAILY WITH MEALS FERROUS Yes [id number] TAKE ONE [facility] vers SULFATE 325 8-13 TABLET BY ity of mg (65 mg 00:00: MOUTH [place] iron) 00 THREE Medical tablet TIMES Branch DAILY WITH MEALS FERROUS Yes [id number] TAKE ONE [facility] vers SULFATE 325 8-13 TABLET BY ity of mg (65 mg 00:00: MOUTH [place] iron) 00 THREE Medical tablet TIMES Branch DAILY WITH MEALS FERROUS Yes [id number] TAKE ONE [facility] vers SULFATE 325 8-13 TABLET BY ity of mg (65 mg 00:00: MOUTH [place] iron) 00 THREE Medical tablet TIMES Branch DAILY WITH MEALS FERROUS Yes [id number] TAKE ONE [facility] vers SULFATE 325 8-13 TABLET BY ity of mg (65 mg 00:00: MOUTH [place] iron) 00 THREE Medical tablet TIMES Branch DAILY WITH MEALS FERROUS Yes [id number] TAKE ONE [facility] vers SULFATE 325 8-13 TABLET BY ity of mg (65 mg 00:00: MOUTH [place] iron) 00 THREE Medical tablet TIMES Branch DAILY WITH MEALS FERROUS Yes [id number] TAKE ONE [facility] vers SULFATE 325 8-13 TABLET BY ity of mg (65 mg 00:00: MOUTH [place] iron) 00 THREE Medical tablet TIMES Branch DAILY WITH MEALS FERROUS Yes [id number] TAKE ONE [facility] vers SULFATE 325 8-13 TABLET BY ity of mg (65 mg 00:00: MOUTH [place] iron) 00 THREE Medical tablet TIMES Branch DAILY WITH MEALS FERROUS Yes [id number] TAKE ONE [facility] vers SULFATE 325 8-13 TABLET BY ity of mg (65 mg 00:00: MOUTH [place] iron) 00 THREE Medical tablet TIMES Branch DAILY WITH MEALS FERROUS Yes [id number] TAKE ONE [facility] vers SULFATE 325 8-13 TABLET BY ity of mg (65 mg 00:00: MOUTH [place] iron) 00 THREE Medical tablet TIMES Branch DAILY WITH MEALS FERROUS Yes [id number] TAKE ONE [facility] vers SULFATE 325 8-13 TABLET BY ity of mg (65 mg 00:00: MOUTH [place] iron) 00 THREE Medical tablet TIMES Branch DAILY WITH MEALS FERROUS Yes [id number] TAKE ONE [facility] vers SULFATE 325 8-13 TABLET BY ity of mg (65 mg 00:00: MOUTH [place] iron) 00 THREE Medical tablet TIMES Branch DAILY WITH MEALS FERROUS Yes [id number] TAKE ONE [facility] vers SULFATE 325 8-13 TABLET BY ity of mg (65 mg 00:00: MOUTH [place] iron) 00 THREE Medical tablet TIMES Branch DAILY WITH MEALS FERROUS Yes [id number] TAKE ONE [facility] vers SULFATE 325 8-13 TABLET BY ity of mg (65 mg 00:00: MOUTH [place] iron) 00 THREE Medical tablet TIMES Branch DAILY WITH MEALS FERROUS Yes [id number] TAKE ONE [facility] vers SULFATE 325 8-13 TABLET BY ity of mg (65 mg 00:00: MOUTH [place] iron) 00 THREE Medical tablet TIMES Branch DAILY WITH MEALS FERROUS Yes [id number] TAKE ONE [facility] vers SULFATE 325 8-13 TABLET BY ity of mg (65 mg 00:00: MOUTH [place] iron) 00 THREE Medical tablet TIMES Branch DAILY WITH MEALS FERROUS Yes [id number] TAKE ONE [facility] vers SULFATE 325 8-13 TABLET BY ity of mg (65 mg 00:00: MOUTH [place] iron) 00 THREE Medical tablet TIMES Branch DAILY WITH MEALS FERROUS Yes [id number] TAKE ONE [facility] vers SULFATE 325 8-13 TABLET BY ity of mg (65 mg 00:00: MOUTH [place] iron) 00 THREE Medical tablet TIMES Branch DAILY WITH MEALS FERROUS Yes [id number] TAKE ONE [facility] vers SULFATE 325 8-13 TABLET BY ity of mg (65 mg 00:00: MOUTH [place] iron) 00 THREE Medical tablet TIMES Branch DAILY WITH MEALS coQ10, Yes [id number] 1{capsu Take 1 U nivers ubiquinol, 1-16 le} capsule by ity of 100 mg Cap 00:00: mouth [place] 00 daily. Medical Branch coQ10, Yes [id number] 1{capsu Take 1 U nivers ubiquinol, 1-16 le} capsule by ity of 100 mg Cap 00:00: mouth [place] 00 daily. Medical Branch coQ10, Yes [id number] 1{capsu Take 1 U nivers ubiquinol, 1-16 le} capsule by ity of 100 mg Cap 00:00: mouth [place] 00 daily. Medical Branch coQ10, Yes [id number] 1{capsu Take 1 U nivers ubiquinol, 1-16 le} capsule by ity of 100 mg Cap 00:00: mouth [place] 00 daily. Medical Branch coQ10, Yes [id number] 1{capsu Take 1 U nivers ubiquinol, 1-16 le} capsule by ity of 100 mg Cap 00:00: mouth [place] 00 daily. Medical Branch coQ10, Yes [id number] 1{capsu Take 1 U nivers ubiquinol, 1-16 le} capsule by ity of 100 mg Cap 00:00: mouth [place] 00 daily. Medical Branch coQ10, Yes [id number] 1{capsu Take 1 U nivers ubiquinol, 1-16 le} capsule by ity of 100 mg Cap 00:00: mouth [place] 00 daily. Medical Branch coQ10, Yes [id number] 1{capsu Take 1 U nivers ubiquinol, 1-16 le} capsule by ity of 100 mg Cap 00:00: mouth [place] 00 daily. [facility] Branch coQ10, Yes [id number] 1{capsu Take 1 U nivers ubiquinol, 1-16 le} capsule by ity of 100 mg Cap 00:00: mouth [place] 00 daily. [facility] Branch coQ10, Yes [id number] 1{capsu Take 1 U nivers ubiquinol, 1-16 le} capsule by ity of 100 mg Cap 00:00: mouth [place] 00 daily. Medical Branch coQ10, Yes [id number] 1{capsu Take 1 U nivers ubiquinol, 1-16 le} capsule by ity of 100 mg Cap 00:00: mouth [place] 00 daily. Medical Branch coQ10, Yes [id number] 1{capsu Take 1 U nivers ubiquinol, 1-16 le} capsule by ity of 100 mg Cap 00:00: mouth [place] 00 daily. Medical Branch coQ10, Yes [id number] 1{capsu Take 1 U nivers ubiquinol, 1-16 le} capsule by ity of 100 mg Cap 00:00: mouth [place] 00 daily. Medical Branch coQ10, Yes [id number] 1{capsu Take 1 U nivers ubiquinol, 1-16 le} capsule by ity of 100 mg Cap 00:00: mouth [place] 00 daily. [facility] Branch coQ10, Yes [id number] 1{capsu Take 1 U nivers ubiquinol, 1-16 le} capsule by ity of 100 mg Cap 00:00: mouth [place] 00 daily. [facility] Branch coQ10, Yes [id number] 1{capsu Take 1 U nivers ubiquinol, 1-16 le} capsule by ity of 100 mg Cap 00:00: mouth [place] 00 daily. Medical Branch coQ10, Yes [id number] 1{capsu Take 1 U nivers ubiquinol, 1-16 le} capsule by ity of 100 mg Cap 00:00: mouth [place] 00 daily. Medical Branch coQ10, Yes [id number] 1{capsu Take 1 U nivers ubiquinol, 1-16 le} capsule by ity of 100 mg Cap 00:00: mouth [place] 00 daily. Medical Branch coQ10, Yes [id number] 1{capsu Take 1 U nivers ubiquinol, 1-16 le} capsule by ity of 100 mg Cap 00:00: mouth [place] 00 daily. Medical Branch coQ10, Yes [id number] 1{capsu Take 1 U nivers ubiquinol, 1-16 le} capsule by ity of 100 mg Cap 00:00: mouth [place] 00 daily. Medical Branch coQ10, Yes [id number] 1{capsu Take 1 U nivers ubiquinol, 1-16 le} capsule by ity of 100 mg Cap 00:00: mouth [place] 00 daily. Medical Branch coQ10, Yes [id number] 1{capsu Take 1 U nivers ubiquinol, 1-16 le} capsule by ity of 100 mg Cap 00:00: mouth [place] 00 daily. Medical Branch coQ10, Yes [id number] 1{capsu Take 1 U nivers ubiquinol, 1-16 le} capsule by ity of 100 mg Cap 00:00: mouth [place] 00 daily. Medical Branch coQ10, Yes [id number] 1{capsu Take 1 U nivers ubiquinol, 1-16 le} capsule by ity of 100 mg Cap 00:00: mouth [place] 00 daily. Medical Branch coQ10, Yes [id number] 1{capsu Take 1 U nivers ubiquinol, 1-16 le} capsule by ity of 100 mg Cap 00:00: mouth [place] 00 daily. Medical Branch coQ10, Yes [id number] 1{capsu Take 1 U nivers ubiquinol, 1-16 le} capsule by ity of 100 mg Cap 00:00: mouth [place] 00 daily. Medical Branch coQ10, Yes [id number] 1{capsu Take 1 U nivers ubiquinol, 1-16 le} capsule by ity of 100 mg Cap 00:00: mouth [place] 00 daily. [facility] coQ10, Yes [id number] 1{capsu Take 1 U nivers ubiquinol, 1-16 le} capsule by ity of 100 mg Cap 00:00: mouth [place] 00 daily. [facility] Branch coQ10, Yes [id number] 1{capsu Take 1 U nivers ubiquinol, 1-16 le} capsule by ity of 100 mg Cap 00:00: mouth [place] 00 daily. [facility] Branch coQ10, Yes [id number] 1{capsu Take 1 U nivers ubiquinol, 1-16 le} capsule by ity of 100 mg Cap 00:00: mouth [place] 00 daily. [facility] Branch coQ10, Yes [id number] 1{capsu Take 1 U nivers ubiquinol, 1-16 le} capsule by ity of 100 mg Cap 00:00: mouth [place] 00 daily. [facility] Branch coQ10, Yes [id number] 1{capsu Take 1 U nivers ubiquinol, 1-16 le} capsule by ity of 100 mg Cap 00:00: mouth [place] 00 daily. [facility] Branch coQ10, Yes [id number] 1{capsu Take 1 U nivers ubiquinol, 1-16 le} capsule by ity of 100 mg Cap 00:00: mouth [place] 00 daily. [facility] Branch loratadine Yes [id number] 10mg Take 1 [facility] 10 mg 1-23 tablet by ity of tablet 00:00: mouth [place] 00 daily. [facility] Branch loratadine Yes [id number] 10mg Take 1 [facility] 10 mg 1-23 tablet by ity of tablet 00:00: mouth [place] 00 daily. [facility] Branch loratadine Yes [id number] 10mg Take 1 [facility] 10 mg 1-23 tablet by ity of tablet 00:00: mouth [place] 00 daily. [facility] Branch loratadine Yes [id number] 10mg Take 1 [facility] 10 mg 1-23 tablet by ity of tablet 00:00: mouth [place] 00 daily. [facility] Branch loratadine Yes [id number] 10mg Take 1 [facility] 10 mg 1-23 tablet by ity of tablet 00:00: mouth [place] 00 daily. [facility] Branch loratadine 2- No [id number] 10mg Take 1 [facility] 10 mg 1-23 06-13 tablet by ity of tablet 00:00: 00:00 mouth [place] 00 :00 daily. Medical Branch Immunizations Ordered Immunization Filled Immunization Date Status Commen ts Source Name Name [facility] (hep a/hep b) 2022-02-24 Completed [facility] versity of 00:00:00 [facility] [place] [facility] (hep a/hep b) 2022-02-24 Completed [facility] versity of 00:00:00 [facility] [place] [facility] (hep a/hep b) 2022-02-24 Completed [facility] versity of 00:00:00 [facility] [place] [facility] (hep a/hep b) 2022-02-24 Completed [facility] versity of 00:00:00 [facility] [place] [facility] (hep a/hep b) 2022-02-24 Completed [facility] versity of 00:00:00 [facility] [place] [facility] (hep a/hep b) 2022-02-24 Completed [facility] versity of 00:00:00 [facility] [place] [facility] (hep a/hep b) 2022-02-24 Completed [facility] versity of 00:00:00 [facility] [place] [facility] (hep a/hep b) 2022-02-24 Completed [facility] versity of 00:00:00 [facility] [place] [facility] (hep a/hep b) 2022-02-24 Completed [facility] versity of 00:00:00 [facility] [place] [facility] (hep a/hep b) 2022-02-24 Completed [facility] versity of 00:00:00 [facility] [place] [facility] (hep a/hep b) 2022-02-24 Completed [facility] versity of 00:00:00 [facility] [place] [facility] (hep a/hep b) 2022-02-24 Completed [facility] versity of 00:00:00 [facility] [place] [facility] (hep a/hep b) 2022-02-24 Completed [facility] versity of 00:00:00 [facility] [place] [facility] (hep a/hep b) 2022-02-24 Completed [facility] versity of 00:00:00 [facility] [place] [facility] (hep a/hep b) 2022-02-24 Completed [facility] versity of 00:00:00 [facility] [place] [facility] (hep a/hep b) 2022-02-24 Completed [facility] versity of 00:00:00 [place] [facility] (hep a/hep b) 2022-02-24 Completed [facility] versity of 00:00:00 [place] [facility] (hep a/hep b) 2022-02-24 Completed [facility] versity of 00:00:00 [place] [facility] (hep a/hep b) 2022-02-24 Completed [facility] versity of 00:00:00 [place] [facility] (hep a/hep b) 2022-02-24 Completed [facility] versity of 00:00:00 [place] [facility] (hep a/hep b) 2022-02-24 Completed [facility] versity of 00:00:00 [place] [facility] (hep a/hep b) 2022-02-24 Completed [facility] versity of 00:00:00 [facility] (hep a/hep b) 2022-02-24 Completed [facility] versity of 00:00:00 [facility] (hep a/hep b) 2022-02-24 Completed [facility] versity of 00:00:00 [facility] (hep a/hep b) 2022-02-24 Completed [facility] versity of 00:00:00 [facility] (hep a/hep b) 2022-02-24 Completed [facility] versity of 00:00:00 [facility] (hep a/hep b) 2022-02-24 Completed [facility] versity of 00:00:00 [facility] (hep a/hep b) 2022-02-24 Completed [facility] versity of 00:00:00 [place] [facility] (hep a/hep b) 2022-02-24 Completed [facility] versity of 00:00:00 [place] [facility] (hep a/hep b) 2022-02-24 Completed [facility] versity of 00:00:00 [place] [facility] (hep a/hep b) 2022-02-24 Completed [facility] versity of 00:00:00 [place] [facility] (hep a/hep b) 2022-02-24 Completed [facility] versity of 00:00:00 [facility] (hep a/hep b) 2022-02-24 Completed [facility] versity of 00:00:00 [place] [facility] (hep a/hep b) 2022-01-14 Completed [facility] versity of 00:00:00 [place] [facility] (hep a/hep b) 2022-01-14 Completed [facility] versity of 00:00:00 [place] [facility] (hep a/hep b) 2022-01-14 Completed [facility] versity of 00:00:00 [place] [facility] (hep a/hep b) 2022-01-14 Completed [facility] versity of 00:00:00 [place] [facility] (hep a/hep b) 2022-01-14 Completed [facility] versity of 00:00:00 [place] [facility] (hep a/hep b) 2022-01-14 Completed [facility] versity of 00:00:00 [place] [facility] (hep a/hep b) 2022-01-14 Completed [facility] versity of 00:00:00 [facility] (hep a/hep b) 2022-01-14 Completed [facility] versity of 00:00:00 [facility] (hep a/hep b) 2022-01-14 Completed [facility] versity of 00:00:00 [place] [facility] (hep a/hep b) 2022-01-14 Completed [facility] versity of 00:00:00 [facility] (hep a/hep b) 2022-01-14 Completed [facility] versity of 00:00:00 [facility] (hep a/hep b) 2022-01-14 Completed [facility] versity of 00:00:00 [place] [facility] (hep a/hep b) 2022-01-14 Completed [facility] versity of 00:00:00 [place] [facility] (hep a/hep b) 2022-01-14 Completed [facility] versity of 00:00:00 [place] [facility] (hep a/hep b) 2022-01-14 Completed [facility] versity of 00:00:00 [place] [facility] (hep a/hep b) 2022-01-14 Completed [facility] of 00:00:00 [facility] Twin[facility] (hep a/hep b) 2022-01-14 Completed [facility] 00:00:00 [facility] (hep a/hep b) 2022-01-14 Completed [facility] 00:00:00 [facility] Twin[facility] (hep a/hep b) 2022-01-14 Completed [facility] 00:00:00 [facility] Twin[facility] (hep a/hep b) 2022-01-14 Completed [facility] 00:00:00 [facility] Twin[facility] (hep a/hep b) 2022-01-14 Completed [facility] 00:00:00 [facility] (hep a/hep b) 2022-01-14 Completed [facility] 00:00:00 [facility] (hep a/hep b) 2022-01-14 Completed [facility] 00:00:00 [facility] (hep a/hep b) 2022-01-14 Completed [facility] 00:00:00 [facility] Twin[facility] (hep a/hep b) 2022-01-14 Completed [facility] 00:00:00 [facility] Twin[facility] (hep a/hep b) 2022-01-14 Completed [facility] 00:00:00 [facility] (hep a/hep b) 2022-01-14 Completed [facility] 00:00:00 [facility] (hep a/hep b) 2022-01-14 Completed [facility] 00:00:00 [facility] Twin[facility] (hep a/hep b) 2022-01-14 Completed [facility] 00:00:00 [facility] Twin[facility] (hep a/hep b) 2022-01-14 Completed [facility] 00:00:00 [facility] Twin[facility] (hep a/hep b) 2022-01-14 Completed [facility] 00:00:00 [facility] Twin[facility] (hep a/hep b) 2022-01-14 Completed [facility] 00:00:00 [facility] Twin[facility] (hep a/hep b) 2022-01-14 Completed [facility] 00:00:00 [facility] SARS-COV-2 COVID-19 2021-07-23 Completed [facility] of PFIZER VACCINE 00:00:00 [facility] SARS-COV-2 COVID-19 2021-07-23 Completed [facility] of PFIZER VACCINE 00:00:00 [facility] SARS-COV-2 COVID-19 2021-07-23 Completed [facility] rs[facility] of PFIZER VACCINE 00:00:00 [facility] SARS-COV-2 COVID-19 2021-07-23 Completed [facility] of PFIZER VACCINE 00:00:00 [facility] SARS-COV-2 COVID-19 2021-07-23 Completed [facility] of PFIZER VACCINE 00:00:00 [facility] SARS-COV-2 COVID-19 2021-07-23 Completed [facility] of PFIZER VACCINE 00:00:00 [facility] SARS-COV-2 COVID-19 2021-07-23 Completed [facility] of PFIZER VACCINE 00:00:00 [facility] SARS-COV-2 COVID-19 2021-07-23 Completed [facility] of PFIZER VACCINE 00:00:00 [facility] SARS-COV-2 COVID-19 2021-07-23 Completed [facility] of PFIZER VACCINE 00:00:00 [facility] SARS-COV-2 COVID-19 2021-07-23 Completed [facility] of PFIZER VACCINE 00:00:00 [facility] SARS-COV-2 COVID-19 2021-07-23 Completed [facility] of PFIZER VACCINE 00:00:00 [facility] SARS-COV-2 COVID-19 2021-07-23 Completed [facility] of PFIZER VACCINE 00:00:00 [facility] SARS-COV-2 COVID-19 2021-07-23 Completed [facility] rs[facility] of PFIZER VACCINE 00:00:00 [facility] SARS-COV-2 COVID-19 2021-07-23 Completed [facility] rs[facility] of PFIZER VACCINE 00:00:00 [facility] SARS-COV-2 COVID-19 2021-07-23 Completed [facility] rs[facility] of PFIZER VACCINE 00:00:00 [facility] SARS-COV-2 COVID-19 2021-07-23 Completed [facility] of PFIZER VACCINE 00:00:00 [facility] SARS-COV-2 COVID-19 2021-07-23 Completed [facility] PFIZER VACCINE 00:00:00 [facility] SARS-COV-2 COVID-19 2021-07-23 Completed [facility] of PFIZER VACCINE 00:00:00 [facility] SARS-COV-2 COVID-19 2021-07-23 Completed [facility] of PFIZER VACCINE 00:00:00 [facility] SARS-COV-2 COVID-19 2021-07-23 Completed [facility] of PFIZER VACCINE 00:00:00 [facility] SARS-COV-2 COVID-19 2021-07-23 Completed [facility] of PFIZER VACCINE 00:00:00 [facility] SARS-COV-2 COVID-19 2021-07-23 Completed [facility] of PFIZER VACCINE 00:00:00 [facility] SARS-COV-2 COVID-19 2021-07-23 Completed [facility] of PFIZER VACCINE 00:00:00 [facility] SARS-COV-2 COVID-19 2021-07-23 Completed [facility] of PFIZER VACCINE 00:00:00 [facility] SARS-COV-2 COVID-19 2021-07-23 Completed [facility] of PFIZER VACCINE 00:00:00 [facility] SARS-COV-2 COVID-19 2021-07-23 Completed [facility] of PFIZER VACCINE 00:00:00 [facility] SARS-COV-2 COVID-19 2021-07-23 Completed [facility] of PFIZER VACCINE 00:00:00 [facility] SARS-COV-2 COVID-19 2021-07-23 Completed [facility] of PFIZER VACCINE 00:00:00 [facility] SARS-COV-2 COVID-19 2021-07-23 Completed [facility] of PFIZER VACCINE 00:00:00 [facility] SARS-COV-2 COVID-19 2021-07-23 Completed [facility] of PFIZER VACCINE 00:00:00 [facility] SARS-COV-2 COVID-19 2021-07-23 Completed [facility] of PFIZER VACCINE 00:00:00 [facility] SARS-COV-2 COVID-19 2021-07-23 Completed [facility] of PFIZER VACCINE 00:00:00 [facility] SARS-COV-2 COVID-19 2021-07-23 Completed [facility] of PFIZER VACCINE 00:00:00 [facility] Influenza Virus 2021-05-27 Completed [facility]it [facility] of Vaccine (3+ yrs) 00:00:00 [facility] Influenza Virus 2021-05-27 Completed [facility] of Vaccine (3+ yrs) 00:00:00 [facility] Influenza Virus 2021-05-27 Completed [facility] of Vaccine (3+ yrs) 00:00:00 [facility] Influenza Virus 2021-05-27 Completed [facility] of Vaccine (3+ yrs) 00:00:00 [facility] Influenza Virus 2021-05-27 Completed [facility] of Vaccine (3+ yrs) 00:00:00 [facility] Influenza Virus 2021-05-27 Completed [facility] of Vaccine (3+ yrs) 00:00:00 [facility] Influenza Virus 2021-05-27 Completed [facility] of Vaccine (3+ yrs) 00:00:00 [facility] Influenza Virus 2021-05-27 Completed [facility] of Vaccine (3+ yrs) 00:00:00 [facility] Influenza Virus 2021-05-27 Completed [facility] of Vaccine (3+ yrs) 00:00:00 [facility] Influenza Virus 2021-05-27 Completed [facility] Vaccine (3+ yrs) 00:00:00 [facility] Influenza Virus 2021-05-27 Completed [facility] of Vaccine (3+ yrs) 00:00:00 [facility] Influenza Virus 2021-05-27 Completed [facility] of Vaccine (3+ yrs) 00:00:00 [facility] Influenza Virus 2021-05-27 Completed [facility] Vaccine (3+ yrs) 00:00:00 [facility] Influenza Virus 2021-05-27 Completed [facility] Vaccine (3+ yrs) 00:00:00 [facility] Influenza Virus 2021-05-27 Completed [facility] Vaccine (3+ yrs) 00:00:00 [facility] Influenza Virus 2021-05-27 Completed [facility] Vaccine (3+ yrs) 00:00:00 [facility] Influenza Virus 2021-05-27 Completed [facility] of Vaccine (3+ yrs) 00:00:00 [facility] Influenza Virus 2021-05-27 Completed [facility] of Vaccine (3+ yrs) 00:00:00 [facility] Influenza Virus 2021-05-27 Completed [facility] Vaccine (3+ yrs) 00:00:00 [facility] Influenza Virus 2021-05-27 Completed [facility] of Vaccine (3+ yrs) 00:00:00 [facility] Influenza Virus 2021-05-27 Completed [facility] of Vaccine (3+ yrs) 00:00:00 [facility] Influenza Virus 2021-05-27 Completed [facility] of Vaccine (3+ yrs) 00:00:00 [facility] Influenza Virus 2021-05-27 Completed [facility] of Vaccine (3+ yrs) 00:00:00 [facility] Influenza Virus 2021-05-27 Completed [facility] of Vaccine (3+ yrs) 00:00:00 [facility] Influenza Virus 2021-05-27 Completed [facility] of Vaccine (3+ yrs) 00:00:00 [facility] Influenza Virus 2021-05-27 Completed [facility] of Vaccine (3+ yrs) 00:00:00 [facility] Influenza Virus 2021-05-27 Completed [facility] of Vaccine (3+ yrs) 00:00:00 [facility] Influenza Virus 2021-05-27 Completed [facility] of Vaccine (3+ yrs) 00:00:00 [facility] Influenza Virus 2021-05-27 Completed [facility] of Vaccine (3+ yrs) 00:00:00 [facility] Influenza Virus 2021-05-27 Completed [facility] of Vaccine (3+ yrs) 00:00:00 [facility] Influenza Virus 2021-05-27 Completed [facility] of Vaccine (3+ yrs) 00:00:00 [facility] Influenza Virus 2021-05-27 Completed [facility] of Vaccine (3+ yrs) 00:00:00 [facility] Influenza Virus 2021-05-27 Completed [facility] Vaccine (3+ yrs) 00:00:00 [facility] SARS-COV-2 COVID-19 2020-12-13 Completed [facility] PFIZER VACCINE 00:00:00 [facility] SARS-COV-2 COVID-19 2020-12-13 Completed [facility] of PFIZER VACCINE 00:00:00 [facility] SARS-COV-2 COVID-19 2020-12-13 Completed [facility] of PFIZER VACCINE 00:00:00 [facility] SARS-COV-2 COVID-19 2020-12-13 Completed [facility] of PFIZER VACCINE 00:00:00 [facility] SARS-COV-2 COVID-19 2020-12-13 Completed [facility] of PFIZER VACCINE 00:00:00 [facility] SARS-COV-2 COVID-19 2020-12-13 Completed [facility] of PFIZER VACCINE 00:00:00 [facility] SARS-COV-2 COVID-19 2020-12-13 Completed [facility] of PFIZER VACCINE 00:00:00 [facility] SARS-COV-2 COVID-19 2020-12-13 Completed [facility] of PFIZER VACCINE 00:00:00 [facility] SARS-COV-2 COVID-19 2020-12-13 Completed [facility] of PFIZER VACCINE 00:00:00 [facility] SARS-COV-2 COVID-19 2020-12-13 Completed [facility] of PFIZER VACCINE 00:00:00 [facility] SARS-COV-2 COVID-19 2020-12-13 Completed [facility] of PFIZER VACCINE 00:00:00 [facility] SARS-COV-2 COVID-19 2020-12-13 Completed [facility] of PFIZER VACCINE 00:00:00 [facility] SARS-COV-2 COVID-19 2020-12-13 Completed [facility] of PFIZER VACCINE 00:00:00 [facility] SARS-COV-2 COVID-19 2020-12-13 Completed [facility] of PFIZER VACCINE 00:00:00 [facility] SARS-COV-2 COVID-19 2020-12-13 Completed [facility] of PFIZER VACCINE 00:00:00 [facility] SARS-COV-2 COVID-19 2020-12-13 Completed [facility] of PFIZER VACCINE 00:00:00 [facility] SARS-COV-2 COVID-19 2020-12-13 Completed [facility] of PFIZER VACCINE 00:00:00 [facility] SARS-COV-2 COVID-19 2020-12-13 Completed [facility] of PFIZER VACCINE 00:00:00 [facility] SARS-COV-2 COVID-19 2020-12-13 Completed [facility] of PFIZER VACCINE 00:00:00 [facility] SARS-COV-2 COVID-19 2020-12-13 Completed [facility] of PFIZER VACCINE 00:00:00 [facility] SARS-COV-2 COVID-19 2020-12-13 Completed [facility] of PFIZER VACCINE 00:00:00 [facility] SARS-COV-2 COVID-19 2020-12-13 Completed [facility] of PFIZER VACCINE 00:00:00 [facility] SARS-COV-2 COVID-19 2020-12-13 Completed [facility] of PFIZER VACCINE 00:00:00 [facility] SARS-COV-2 COVID-19 2020-12-13 Completed [facility] of PFIZER VACCINE 00:00:00 [facility] SARS-COV-2 COVID-19 2020-12-13 Completed [facility] of PFIZER VACCINE 00:00:00 [facility] SARS-COV-2 COVID-19 2020-12-13 Completed [facility] of PFIZER VACCINE 00:00:00 [facility] SARS-COV-2 COVID-19 2020-12-13 Completed [facility] of PFIZER VACCINE 00:00:00 [facility] SARS-COV-2 COVID-19 2020-12-13 Completed [facility] of PFIZER VACCINE 00:00:00 [facility] SARS-COV-2 COVID-19 2020-12-13 Completed [facility] of PFIZER VACCINE 00:00:00 [facility] SARS-COV-2 COVID-19 2020-12-13 Completed [facility] of PFIZER VACCINE 00:00:00 [facility] SARS-COV-2 COVID-19 2020-12-13 Completed [facility] of PFIZER VACCINE 00:00:00 [facility] SARS-COV-2 COVID-19 2020-12-13 Completed [facility] of PFIZER VACCINE 00:00:00 [facility] SARS-COV-2 COVID-19 2020-12-13 Completed [facility] of PFIZER VACCINE 00:00:00 [facility] SARS-COV-2 COVID-19 2020-11-22 Completed [facility] of PFIZER VACCINE 00:00:00 [facility] SARS-COV-2 COVID-19 2020-11-22 Completed [facility] of PFIZER VACCINE 00:00:00 [facility] SARS-COV-2 COVID-19 2020-11-22 Completed [facility] of PFIZER VACCINE 00:00:00 [facility] SARS-COV-2 COVID-19 2020-11-22 Completed [facility] of PFIZER VACCINE 00:00:00 [facility] SARS-COV-2 COVID-19 2020-11-22 Completed [facility] of PFIZER VACCINE 00:00:00 [facility] SARS-COV-2 COVID-19 2020-11-22 Completed [facility] of PFIZER VACCINE 00:00:00 [facility] SARS-COV-2 COVID-19 2020-11-22 Completed [facility] of PFIZER VACCINE 00:00:00 [facility] SARS-COV-2 COVID-19 2020-11-22 Completed [facility] of PFIZER VACCINE 00:00:00 [facility] SARS-COV-2 COVID-19 2020-11-22 Completed [facility] of PFIZER VACCINE 00:00:00 [facility] SARS-COV-2 COVID-19 2020-11-22 Completed [facility] of PFIZER VACCINE 00:00:00 [facility] SARS-COV-2 COVID-19 2020-11-22 Completed [facility] of PFIZER VACCINE 00:00:00 [facility] SARS-COV-2 COVID-19 2020-11-22 Completed [facility] of PFIZER VACCINE 00:00:00 [facility] SARS-COV-2 COVID-19 2020-11-22 Completed [facility] of PFIZER VACCINE 00:00:00 [facility] SARS-COV-2 COVID-19 2020-11-22 Completed [facility] of PFIZER VACCINE 00:00:00 [facility] SARS-COV-2 COVID-19 2020-11-22 Completed [facility] of PFIZER VACCINE 00:00:00 [facility] SARS-COV-2 COVID-19 2020-11-22 Completed [facility] of PFIZER VACCINE 00:00:00 [facility] SARS-COV-2 COVID-19 2020-11-22 Completed [facility] of PFIZER VACCINE 00:00:00 [facility] SARS-COV-2 COVID-19 2020-11-22 Completed [facility] of PFIZER VACCINE 00:00:00 [facility] SARS-COV-2 COVID-19 2020-11-22 Completed [facility] of PFIZER VACCINE 00:00:00 [facility] SARS-COV-2 COVID-19 2020-11-22 Completed [facility] of PFIZER VACCINE 00:00:00 [facility] SARS-COV-2 COVID-19 2020-11-22 Completed [facility] of PFIZER VACCINE 00:00:00 [facility] SARS-COV-2 COVID-19 2020-11-22 Completed [facility] of PFIZER VACCINE 00:00:00 [facility] SARS-COV-2 COVID-19 2020-11-22 Completed [facility] of PFIZER VACCINE 00:00:00 [facility] SARS-COV-2 COVID-19 2020-11-22 Completed [facility] of PFIZER VACCINE 00:00:00 [facility] SARS-COV-2 COVID-19 2020-11-22 Completed [facility] of PFIZER VACCINE 00:00:00 [facility] SARS-COV-2 COVID-19 2020-11-22 Completed [facility] of PFIZER VACCINE 00:00:00 [facility] SARS-COV-2 COVID-19 2020-11-22 Completed [facility] of PFIZER VACCINE 00:00:00 [facility] SARS-COV-2 COVID-19 2020-11-22 Completed [facility] of PFIZER VACCINE 00:00:00 [facility] SARS-COV-2 COVID-19 2020-11-22 Completed [facility] of PFIZER VACCINE 00:00:00 [facility] SARS-COV-2 COVID-19 2020-11-22 Completed [facility] of PFIZER VACCINE 00:00:00 [facility] SARS-COV-2 COVID-19 2020-11-22 Completed [facility] of PFIZER VACCINE 00:00:00 [facility] SARS-COV-2 COVID-19 2020-11-22 Completed [facility] of PFIZER VACCINE 00:00:00 [facility] SARS-COV-2 COVID-19 2020-11-22 Completed [facility] of PFIZER VACCINE 00:00:00 [facility] Influenza Virus 2020-05-27 Completed [facility] of [...] o f Polysaccharide, 00:00:00 [facility] ical PPSV23 (PNEUMOVAX) Branch TDAP (ADACEL) VACCINE 2019-08-10 Completed [facility] 00:00:00 [facility] TDAP 2019-08-10 Completed [facility] 00:00:00 [facility] Pneumococcal 2019-08-10 Completed [facility] o f Polysaccharide, 00:00:00 [facility] PPSV23 (PNEUMOVAX) [facility] TDAP (ADACEL) VACCINE 2019-08-10 Completed [facility] 00:00:00 [facility] TDAP 2019-08-10 Completed [facility] 00:00:00 [facility] Pneumococcal 2019-08-10 Completed [facility] o f Polysaccharide, 00:00:00 [facility] PPSV23 (PNEUMOVAX) [facility] TDAP (ADACEL) VACCINE 2019-08-10 Completed [facility] 00:00:00 [facility] TDAP 2019-08-10 Completed [facility] 00:00:00 [facility] Pneumococcal 2019-08-10 Completed [facility] o f Polysaccharide, 00:00:00 [place] [facility] PPSV23 (PNEUMOVAX) [facility] TDAP (ADACEL) VACCINE 2019-08-10 Completed [facility] 00:00:00 [facility] TDAP 2019-08-10 Completed [facility] 00:00:00 [facility] Pneumococcal 2019-08-10 Completed [facility] o f Polysaccharide, 00:00:00 [place] [facility] PPSV23 (PNEUMOVAX) [facility] TDAP (ADACEL) VACCINE 2019-08-10 Completed [facility] 00:00:00 [facility] TDAP 2019-08-10 Completed [facility] 00:00:00 [facility] Pneumococcal 2019-08-10 Completed [facility] o f Polysaccharide, 00:00:00 [facility] PPSV23 (PNEUMOVAX) [facility] TDAP (ADACEL) VACCINE 2019-08-10 Completed [facility] 00:00:00 [facility] TDAP 2019-08-10 Completed [facility] 00:00:00 [facility] Pneumococcal 2019-08-10 Completed University o f Polysaccharide, 00:00:00 [facility] PPSV23 (PNEUMOVAX) [facility] TDAP (ADACEL) VACCINE 2019-08-10 Completed [facility] 00:00:00 [facility] TDAP 2019-08-10 Completed [facility] 00:00:00 [facility] Pneumococcal 2019-08-10 Completed [facility] o f Polysaccharide, 00:00:00 [facility] PPSV23 (PNEUMOVAX) [facility] TDAP (ADACEL) VACCINE 2019-08-10 Completed [facility] 00:00:00 [facility] TDAP 2019-08-10 Completed [facility] 00:00:00 [facility] Pneumococcal 2019-08-10 Completed [facility] o f Polysaccharide, 00:00:00 [place] [facility] PPSV23 (PNEUMOVAX) Branch TDAP (ADACEL) VACCINE 2019-08-10 Completed [facility] vers[facility] 00:00:00 [facility] TDAP 2019-08-10 Completed [facility] of 00:00:00 [facility] Pneumococcal 2019-08-10 Completed [facility] o f Polysaccharide, 00:00:00 [place] [facility] PPSV23 (PNEUMOVAX) Branch TDAP (ADACEL) VACCINE 2019-08-10 Completed [facility] 00:00:00 [facility] TDAP 2019-08-10 Completed [facility] 00:00:00 [facility] Pneumococcal 2019-08-10 Completed [facility] o f Polysaccharide, 00:00:00 [facility] PPSV23 (PNEUMOVAX) Branch TDAP (ADACEL) VACCINE 2019-08-10 Completed [facility] 00:00:00 [facility] TDAP 2019-08-10 Completed [facility] 00:00:00 [facility] Pneumococcal 2019-08-10 Completed [facility] o f Polysaccharide, 00:00:00 [facility] PPSV23 (PNEUMOVAX) Branch TDAP (ADACEL) VACCINE 2019-08-10 Completed [facility] 00:00:00 [facility] TDAP 2019-08-10 Completed [facility] 00:00:00 [facility] Pneumococcal 2019-08-10 Completed [facility] o f Polysaccharide, 00:00:00 [facility] PPSV23 (PNEUMOVAX) [facility] TDAP (ADACEL) VACCINE 2019-08-10 Completed Uni versity of 00:00:00 [facility] TDAP 2019-08-10 Completed University of 00:00:00 [facility] Pneumococcal 2019-08-10 Completed University o f Polysaccharide, 00:00:00 [place] [facility] PPSV23 (PNEUMOVAX) Branch TDAP (ADACEL) VACCINE 2019-08-10 Completed Uni versity of 00:00:00 [facility] TDAP 2019-08-10 Completed University of 00:00:00 [facility] Pneumococcal 2019-08-10 Completed University o f Polysaccharide, 00:00:00 [place] [facility] PPSV23 (PNEUMOVAX) Branch TDAP (ADACEL) VACCINE 2019-08-10 Completed Uni versity of 00:00:00 [facility] TDAP 2019-08-10 Completed University of 00:00:00 [facility] Pneumococcal 2019-08-10 Completed University o f Polysaccharide, 00:00:00 [place] [facility] PPSV23 (PNEUMOVAX) Branch TDAP (ADACEL) VACCINE 2019-08-10 Completed Uni versity of 00:00:00 [facility] TDAP 2019-08-10 Completed University of 00:00:00 [facility] Pneumococcal 2019-08-10 Completed University o f Polysaccharide, 00:00:00 [place] [facility] PPSV23 (PNEUMOVAX) Branch TDAP (ADACEL) VACCINE 2019-08-10 Completed [facility] vers[facility] 00:00:00 [facility] TDAP 2019-08-10 Completed [facility] 00:00:00 [facility] Pneumococcal 2019-08-10 Completed University o f Polysaccharide, 00:00:00 [place] [facility] PPSV23 (PNEUMOVAX) Branch TDAP (ADACEL) VACCINE 2019-08-10 Completed [facility] vers[facility] 00:00:00 [facility] TDAP 2019-08-10 Completed [facility] of 00:00:00 [facility] Pneumococcal 2019-08-10 Completed University o f Polysaccharide, 00:00:00 [place] [facility] PPSV23 (PNEUMOVAX) Branch TDAP (ADACEL) VACCINE 2019-08-10 Completed Uni versity of 00:00:00 [facility] TDAP 2019-08-10 Completed [facility] of 00:00:00 [facility] Pneumococcal 2019-08-10 Completed University o f Polysaccharide, 00:00:00 [place] [facility] PPSV23 (PNEUMOVAX) Branch TDAP (ADACEL) VACCINE 2019-08-10 Completed [facility] vers[facility] of 00:00:00 [facility] TDAP 2019-08-10 Completed [facility] of 00:00:00 [facility] Pneumococcal 2019-08-10 Completed University o f Polysaccharide, 00:00:00 [place] [facility] PPSV23 (PNEUMOVAX) Branch TDAP (ADACEL) VACCINE 2019-08-10 Completed Uni versity of 00:00:00 [facility] TDAP 2019-08-10 Completed [facility] of 00:00:00 [facility] Pneumococcal 2019-08-10 Completed University o f Polysaccharide, 00:00:00 [place] [facility] PPSV23 (PNEUMOVAX) Branch TDAP (ADACEL) VACCINE 2019-08-10 Completed Uni versity of 00:00:00 [facility] TDAP 2019-08-10 Completed University of 00:00:00 [facility] Pneumococcal 2019-08-10 Completed University o f Polysaccharide, 00:00:00 [place] [facility] PPSV23 (PNEUMOVAX) Branch TDAP (ADACEL) VACCINE 2019-08-10 Completed Uni versity of 00:00:00 [facility] TDAP 2019-08-10 Completed [facility] of 00:00:00 [facility] Pneumococcal 2019-08-10 Completed University o f Polysaccharide, 00:00:00 [place] [facility] PPSV23 (PNEUMOVAX) Branch TDAP (ADACEL) VACCINE 2019-08-10 Completed [facility] vers[facility] of 00:00:00 [facility] TDAP 2019-08-10 Completed [facility] of 00:00:00 [facility] Pneumococcal 2019-08-10 Completed University o f Polysaccharide, 00:00:00 [place] [facility] PPSV23 (PNEUMOVAX) Branch TDAP (ADACEL) VACCINE 2019-08-10 Completed Uni versity of 00:00:00 [facility] TDAP 2019-08-10 Completed [facility] of 00:00:00 [facility] Pneumococcal 2019-08-10 Completed University o f Polysaccharide, 00:00:00 [place] [facility] PPSV23 (PNEUMOVAX) Branch TDAP (ADACEL) VACCINE 2019-08-10 Completed Uni versity of 00:00:00 [facility] TDAP 2019-08-10 Completed University of 00:00:00 [facility] Pneumococcal 2019-08-10 Completed University o f Polysaccharide, 00:00:00 [place] [facility] PPSV23 (PNEUMOVAX) Branch TDAP (ADACEL) VACCINE 2019-08-10 Completed Uni versity of 00:00:00 [facility] TDAP 2019-08-10 Completed University of 00:00:00 [facility] Pneumococcal 2019-08-10 Completed University o f Polysaccharide, 00:00:00 [place] [facility] PPSV23 (PNEUMOVAX) Branch TDAP (ADACEL) VACCINE 2019-08-10 Completed Uni versity of 00:00:00 [facility] TDAP 2019-08-10 Completed [facility] of 00:00:00 [facility] Pneumococcal 2019-08-10 Completed University o f Polysaccharide, 00:00:00 [place] [facility] PPSV23 (PNEUMOVAX) Branch TDAP (ADACEL) VACCINE 2019-08-10 Completed Uni versity of 00:00:00 [facility] TDAP 2019-08-10 Completed [facility] of 00:00:00 [facility] Pneumococcal 2019-08-10 Completed University o f Polysaccharide, 00:00:00 [place] [facility] PPSV23 (PNEUMOVAX) Branch TDAP (ADACEL) VACCINE 2019-08-10 Completed Uni versity of 00:00:00 [facility] TDAP 2019-08-10 Completed University of 00:00:00 [facility] Pneumococcal 2019-08-10 Completed University o f Polysaccharide, 00:00:00 [facility] ical PPSV23 (PNEUMOVAX) Branch TDAP (ADACEL) VACCINE 2019-08-10 Completed Uni versity of 00:00:00 [facility] TDAP 2019-08-10 Completed University of 00:00:00 [facility] Pneumococcal 2019-08-10 Completed University o f Polysaccharide, 00:00:00 [place] [facility] PPSV23 (PNEUMOVAX) Branch TDAP (ADACEL) VACCINE 2019-08-10 Completed Uni versity of 00:00:00 [facility] TDAP 2019-08-10 Completed University of 00:00:00 [facility] Pneumococcal 2019-08-10 Completed University o f Polysaccharide, 00:00:00 [place] [facility] PPSV23 (PNEUMOVAX) Branch TDAP (ADACEL) VACCINE 2019-08-10 Completed Uni versity of 00:00:00 [facility] TDAP 2019-08-10 Completed University of 00:00:00 [facility] Influenza Virus 2019-07-04 Completed Universit y of Vaccine 00:00:00 [facility] Influenza Virus 2019-07-04 Completed Universit y of Vaccine Recomb Quad 00:00:00 [facility], Preserv and ABX Branc h Free 18-64 YRS Influenza Virus 2019-07-04 Completed Universit y of Vaccine 00:00:00 [facility] Influenza Virus 2019-07-04 Completed Universit y of Vaccine Recomb Quad 00:00:00 [facility], Preserv and ABX Branc h Free 18-64 YRS Influenza Virus 2019-07-04 Completed Universit y of Vaccine 00:00:00 [facility] Influenza Virus 2019-07-04 Completed Universit y of Vaccine Recomb Quad 00:00:00 [facility], Preserv and ABX Branc h Free 18-64 YRS Influenza Virus 2019-07-04 Completed Universit y of Vaccine 00:00:00 [facility] Influenza Virus 2019-07-04 Completed Universit y of Vaccine Recomb Quad 00:00:00 [facility], Preserv and ABX Branc h Free 18-64 YRS Influenza Virus 2019-07-04 Completed Universit y of Vaccine 00:00:00 [facility] Influenza Virus 2019-07-04 Completed Universit y of Vaccine Recomb Quad 00:00:00 [facility], Preserv and ABX Branc h Free 18-64 YRS Influenza Virus 2019-07-04 Completed Universit y of Vaccine 00:00:00 [facility] Influenza Virus 2019-07-04 Completed Universit y of Vaccine Recomb Quad 00:00:00 [facility], Preserv and ABX Branc h Free 18-64 YRS Influenza Virus 2019-07-04 Completed Universit y of Vaccine 00:00:00 [facility] Influenza Virus 2019-07-04 Completed Universit y of Vaccine Recomb Quad 00:00:00 [facility], Preserv and ABX Branc h Free 18-64 YRS Influenza Virus 2019-07-04 Completed Universit y of Vaccine 00:00:00 [facility] Influenza Virus 2019-07-04 Completed Universit y of Vaccine Recomb Quad 00:00:00 [facility], Preserv and ABX Branc h Free 18-64 YRS Influenza Virus 2019-07-04 Completed Universit y of Vaccine 00:00:00 [facility] Influenza Virus 2019-07-04 Completed Universit y of Vaccine Recomb Quad 00:00:00 [facility], Preserv and ABX Branc h Free 18-64 YRS Influenza Virus 2019-07-04 Completed Universit y of Vaccine 00:00:00 [facility] Influenza Virus 2019-07-04 Completed Universit y of Vaccine Recomb Quad 00:00:00 [facility], Preserv and ABX Branc h Free 18-64 YRS Influenza Virus 2019-07-04 Completed Universit y of Vaccine 00:00:00 [facility] Influenza Virus 2019-07-04 Completed Universit y of Vaccine Recomb Quad 00:00:00 [facility], Preserv and ABX Branc h Free 18-64 YRS Influenza Virus 2019-07-04 Completed Universit y of Vaccine 00:00:00 [facility] Influenza Virus 2019-07-04 Completed Universit y of Vaccine Recomb Quad 00:00:00 [facility], Preserv and ABX Branc h Free 18-64 YRS Influenza Virus 2019-07-04 Completed Universit y of Vaccine 00:00:00 [facility] Influenza Virus 2019-07-04 Completed Universit y of Vaccine Recomb Quad 00:00:00 [facility], Preserv and ABX Branc h Free 18-64 YRS Influenza Virus 2019-07-04 Completed Universit y of Vaccine 00:00:00 [facility] Influenza Virus 2019-07-04 Completed Universit y of Vaccine Recomb Quad 00:00:00 [facility], Preserv and ABX Branc h Free 18-64 YRS Influenza Virus 2019-07-04 Completed Universit y of Vaccine 00:00:00 [facility] Influenza Virus 2019-07-04 Completed Universit y of Vaccine Recomb Quad 00:00:00 [facility], Preserv and ABX Branc h Free 18-64 YRS Influenza Virus 2019-07-04 Completed Universit y of Vaccine 00:00:00 [facility] Influenza Virus 2019-07-04 Completed Universit y of Vaccine Recomb Quad 00:00:00 [facility], Preserv and ABX Branc h Free 18-64 YRS Influenza Virus 2019-07-04 Completed Universit y of Vaccine 00:00:00 [facility] Influenza Virus 2019-07-04 Completed Universit y of Vaccine Recomb Quad 00:00:00 [facility], Preserv and ABX Branc h Free 18-64 YRS Influenza Virus 2019-07-04 Completed Universit y of Vaccine 00:00:00 [facility] Influenza Virus 2019-07-04 Completed Universit y of Vaccine Recomb Quad 00:00:00 [facility], Preserv and ABX Branc h Free 18-64 YRS Influenza Virus 2019-07-04 Completed Universit y of Vaccine 00:00:00 [facility] Influenza Virus 2019-07-04 Completed Universit y of Vaccine Recomb Quad 00:00:00 [facility], Preserv and ABX Branc h Free 18-64 YRS Influenza Virus 2019-07-04 Completed Universit y of Vaccine 00:00:00 [facility] Influenza Virus 2019-07-04 Completed Universit y of Vaccine Recomb Quad 00:00:00 [facility], Preserv and ABX Branc h Free 18-64 YRS Influenza Virus 2019-07-04 Completed Universit y of Vaccine 00:00:00 [facility] Influenza Virus 2019-07-04 Completed Universit y of Vaccine Recomb Quad 00:00:00 [facility], Preserv and ABX Branc h Free 18-64 YRS Influenza Virus 2019-07-04 Completed Universit y of Vaccine 00:00:00 [facility] Influenza Virus 2019-07-04 Completed Universit y of Vaccine Recomb Quad 00:00:00 [facility], Preserv and ABX Branc h Free 18-64 YRS Influenza Virus 2019-07-04 Completed Universit y of Vaccine 00:00:00 [facility] Influenza Virus 2019-07-04 Completed Universit y of Vaccine Recomb Quad 00:00:00 [facility], Preserv and ABX Branc h Free 18-64 YRS Influenza Virus 2019-07-04 Completed Universit y of Vaccine 00:00:00 [facility] Influenza Virus 2019-07-04 Completed Universit y of Vaccine Recomb Quad 00:00:00 [facility], Preserv and ABX Branc h Free 18-64 YRS Influenza Virus 2019-07-04 Completed Universit y of Vaccine 00:00:00 [facility] Influenza Virus 2019-07-04 Completed Universit y of Vaccine Recomb Quad 00:00:00 [facility], Preserv and ABX Branc h Free 18-64 YRS Influenza Virus 2019-07-04 Completed Universit y of Vaccine 00:00:00 [facility] Influenza Virus 2019-07-04 Completed Universit y of Vaccine Recomb Quad 00:00:00 [facility], Preserv and ABX Branc h Free 18-64 YRS Influenza Virus 2019-07-04 Completed Universit y of Vaccine 00:00:00 [facility] Influenza Virus 2019-07-04 Completed Universit y of Vaccine Recomb Quad 00:00:00 [facility], Preserv and ABX Branc h Free 18-64 YRS Influenza Virus 2019-07-04 Completed Universit y of Vaccine 00:00:00 [facility] Influenza Virus 2019-07-04 Completed Universit y of Vaccine Recomb Quad 00:00:00 [facility], Preserv and ABX Branc h Free 18-64 YRS Influenza Virus 2019-07-04 Completed Universit y of Vaccine 00:00:00 [facility] Influenza Virus 2019-07-04 Completed Universit y of Vaccine Recomb Quad 00:00:00 [facility], Preserv and ABX Branc h Free 18-64 YRS Influenza Virus 2019-07-04 Completed Universit y of Vaccine 00:00:00 [facility] Influenza Virus 2019-07-04 Completed Universit y of Vaccine Recomb Quad 00:00:00 [facility], Preserv and ABX Branc h Free 18-64 YRS Influenza Virus 2019-07-04 Completed Universit y of Vaccine 00:00:00 [facility] Influenza Virus 2019-07-04 Completed Universit y of Vaccine Recomb Quad 00:00:00 [facility], Preserv and ABX Branc h Free 18-64 YRS Influenza Virus 2019-07-04 Completed Universit y of Vaccine 00:00:00 [facility] Influenza Virus 2019-07-04 Completed Universit y of Vaccine Recomb Quad 00:00:00 [facility], Preserv and ABX Branc h Free 18-64 YRS Influenza Virus 2019-07-04 Completed Universit y of Vaccine 00:00:00 [facility] Influenza Virus 2019-07-04 Completed Universit y of Vaccine Recomb Quad 00:00:00 [facility], Preserv and ABX Branc h Free 18-64 YRS Influenza Virus 2018-06-30 Completed Universit y of Vaccine Quad IM 3+ 00:00:00 [facility] Influenza Virus 2018-06-30 Completed Universit y of Vaccine Quad IM 3+ 00:00:00 [facility] Influenza Virus 2018-06-30 Completed Universit y of Vaccine Quad IM 3+ 00:00:00 [facility] Influenza Virus 2018-06-30 Completed Universit y of Vaccine Quad IM 3+ 00:00:00 [facility] Influenza Virus 2018-06-30 Completed Universit y of Vaccine Quad IM 3+ 00:00:00 [facility] Influenza Virus 2018-06-30 Completed Universit y of Vaccine Quad IM 3+ 00:00:00 [facility] Influenza Virus 2018-06-30 Completed Universit y of Vaccine Quad IM 3+ 00:00:00 [facility] Influenza Virus 2018-06-30 Completed Universit y of Vaccine Quad IM 3+ 00:00:00 [facility] Influenza Virus 2018-06-30 Completed Universit y of Vaccine Quad IM 3+ 00:00:00 [facility] Influenza Virus 2018-06-30 Completed Universit y of Vaccine Quad IM 3+ 00:00:00 [facility] Influenza Virus 2018-06-30 Completed Universit y of Vaccine Quad IM 3+ 00:00:00 [facility] Influenza Virus 2018-06-30 Completed Universit y of Vaccine Quad IM 3+ 00:00:00 [facility] Influenza Virus 2018-06-30 Completed Universit y of Vaccine Quad IM 3+ 00:00:00 [facility] Influenza Virus 2018-06-30 Completed Universit y of Vaccine Quad IM 3+ 00:00:00 [facility] Influenza Virus 2018-06-30 Completed Universit y of Vaccine Quad IM 3+ 00:00:00 [facility] Influenza Virus 2018-06-30 Completed Universit y of Vaccine Quad IM 3+ 00:00:00 [facility] Influenza Virus 2018-06-30 Completed Universit y of Vaccine Quad IM 3+ 00:00:00 [facility] Influenza Virus 2018-06-30 Completed Universit y of Vaccine Quad IM 3+ 00:00:00 [facility] Influenza Virus 2018-06-30 Completed Universit y of Vaccine Quad IM 3+ 00:00:00 [facility] Influenza Virus 2018-06-30 Completed Universit y of Vaccine Quad IM 3+ 00:00:00 [facility] Influenza Virus 2018-06-30 Completed Universit y of Vaccine Quad IM 3+ 00:00:00 [facility] Influenza Virus 2018-06-30 Completed Universit y of Vaccine Quad IM 3+ 00:00:00 [facility] Influenza Virus 2018-06-30 Completed Universit y of Vaccine Quad IM 3+ 00:00:00 [facility] Influenza Virus 2018-06-30 Completed Universit y of Vaccine Quad IM 3+ 00:00:00 [facility] Influenza Virus 2018-06-30 Completed Universit y of Vaccine Quad IM 3+ 00:00:00 [facility] Influenza Virus 2018-06-30 Completed Universit y of Vaccine Quad IM 3+ 00:00:00 [facility] Influenza Virus 2018-06-30 Completed Universit y of Vaccine Quad IM 3+ 00:00:00 [facility] Influenza Virus 2018-06-30 Completed Universit y of Vaccine Quad IM 3+ 00:00:00 [facility] Influenza Virus 2018-06-30 Completed Universit y of Vaccine Quad IM 3+ 00:00:00 [facility] Influenza Virus 2018-06-30 Completed Universit y of Vaccine Quad IM 3+ 00:00:00 [facility] Influenza Virus 2018-06-30 Completed Universit y of Vaccine Quad IM 3+ 00:00:00 [facility] Influenza Virus 2018-06-30 Completed Universit y of Vaccine Quad IM 3+ 00:00:00 [facility] Influenza Virus 2018-06-30 Completed Universit y of Vaccine Quad IM 3+ 00:00:00 [facility] Influenza Virus 2017-06-15 Completed [facility] of [...] [place] [facility] Multi-dose 6+ MO [facility] Pneumococcal 13 2016-03-07 Completed Universit y of Conjugate, PCV13 00:00:00 [facility] (Prevnar 13) Branch Meningococcal B, OMV 2016-03-07 Completed Univ ersity of 00:00:00 [facility] Pneumococcal 13 2016-03-07 Completed Universit y of Conjugate, PCV13 00:00:00 [place] [facility] (Prevnar 13) Branch Meningococcal B, [facility] 2016-03-07 Completed Univ ersity of 00:00:00 [facility] Pneumococcal 13 2016-03-07 Completed Universit y of Conjugate, PCV13 00:00:00 [place] [facility] (Prevnar 13) Branch Meningococcal B, [facility] 2016-03-07 Completed Univ ersity of 00:00:00 [facility] Pneumococcal 13 2016-03-07 Completed Universit y of Conjugate, PCV13 00:00:00 [place] [facility] (Prevnar 13) Branch Meningococcal B, [facility] 2016-03-07 Completed Univ ersity of 00:00:00 [facility] Pneumococcal 13 2016-03-07 Completed Universit y of Conjugate, PCV13 00:00:00 [place] [facility] (Prevnar 13) Branch Meningococcal B, [facility] 2016-03-07 Completed Univ ersity of 00:00:00 [facility] Pneumococcal 13 2016-03-07 Completed Universit y of Conjugate, PCV13 00:00:00 [place] [facility] (Prevnar 13) Branch Meningococcal B, [facility] 2016-03-07 Completed Univ ersity of 00:00:00 [facility] Pneumococcal 13 2016-03-07 Completed Universit y of Conjugate, PCV13 00:00:00 [place] [facility] (Prevnar 13) Branch Meningococcal B, [facility] 2016-03-07 Completed Univ ersity of 00:00:00 [facility] Pneumococcal 13 2016-03-07 Completed Universit y of Conjugate, PCV13 00:00:00 [place] [facility] (Prevnar 13) Branch Meningococcal B, [facility] 2016-03-07 Completed Univ ersity of 00:00:00 [facility] Pneumococcal 13 2016-03-07 Completed Universit y of Conjugate, PCV13 00:00:00 [place] [facility] (Prevnar 13) Branch Meningococcal B, [facility] 2016-03-07 Completed Univ ersity of 00:00:00 [facility] Pneumococcal 13 2016-03-07 Completed Universit y of Conjugate, PCV13 00:00:00 [place] [facility] (Prevnar 13) Branch Meningococcal B, [facility] 2016-03-07 Completed Univ ersity of 00:00:00 [facility] Pneumococcal 13 2016-03-07 Completed Universit y of Conjugate, PCV13 00:00:00 [place] [facility] (Prevnar 13) Branch Meningococcal B, [facility] 2016-03-07 Completed Univ ersity of 00:00:00 [facility] Pneumococcal 13 2016-03-07 Completed Universit y of Conjugate, PCV13 00:00:00 [place] [facility] (Prevnar 13) Branch Meningococcal B, [facility] 2016-03-07 Completed Univ ersity of 00:00:00 [facility] Pneumococcal 13 2016-03-07 Completed Universit y of Conjugate, PCV13 00:00:00 [place] [facility] (Prevnar 13) Branch Meningococcal B, [facility] 2016-03-07 Completed Univ ersity of 00:00:00 [facility] Pneumococcal 13 2016-03-07 Completed Universit y of Conjugate, PCV13 00:00:00 [place] [facility] (Prevnar 13) Branch Meningococcal B, [facility] 2016-03-07 Completed Univ ersity of 00:00:00 [facility] Pneumococcal 13 2016-03-07 Completed Universit y of Conjugate, PCV13 00:00:00 [place] [facility] (Prevnar 13) Branch Meningococcal B, [facility] 2016-03-07 Completed Univ ersity of 00:00:00 [facility] Pneumococcal 13 2016-03-07 Completed Universit y of Conjugate, PCV13 00:00:00 [place] [facility] (Prevnar 13) Branch Meningococcal B, [facility] 2016-03-07 Completed Univ ersity of 00:00:00 [facility] Pneumococcal 13 2016-03-07 Completed Universit y of Conjugate, PCV13 00:00:00 [place] [facility] (Prevnar 13) Branch Meningococcal B, [facility] 2016-03-07 Completed Univ ersity of 00:00:00 [facility] Pneumococcal 13 2016-03-07 Completed Universit y of Conjugate, PCV13 00:00:00 [place] [facility] (Prevnar 13) Branch Meningococcal B, [facility] 2016-03-07 Completed Univ ersity of 00:00:00 [facility] Pneumococcal 13 2016-03-07 Completed Universit y of Conjugate, PCV13 00:00:00 [place] [facility] (Prevnar 13) Branch Meningococcal B, [facility] 2016-03-07 Completed Univ ersity of 00:00:00 [facility] Pneumococcal 13 2016-03-07 Completed Universit y of Conjugate, PCV13 00:00:00 [place] [facility] (Prevnar 13) Branch Meningococcal B, V 2016-03-07 Completed Univ ersity of 00:00:00 [facility] Pneumococcal 13 2016-03-07 Completed Universit y of Conjugate, PCV13 00:00:00 [place] [facility] (Prevnar 13) Branch Meningococcal B, V 2016-03-07 Completed Univ ersity of 00:00:00 [facility] Pneumococcal 13 2016-03-07 Completed Universit y of Conjugate, PCV13 00:00:00 [place] [facility] (Prevnar 13) Branch Meningococcal B, [facility] 2016-03-07 Completed Univ ersity of 00:00:00 [facility] Pneumococcal 13 2016-03-07 Completed Universit y of Conjugate, PCV13 00:00:00 [place] [facility] (Prevnar 13) Branch Meningococcal B, [facility] 2016-03-07 Completed Univ ersity of 00:00:00 [facility] Pneumococcal 13 2016-03-07 Completed Universit y of Conjugate, PCV13 00:00:00 [place] [facility] (Prevnar 13) Branch Meningococcal B, [facility] 2016-03-07 Completed Univ ersity of 00:00:00 [facility] Pneumococcal 13 2016-03-07 Completed Universit y of Conjugate, PCV13 00:00:00 [place] [facility] (Prevnar 13) Branch Meningococcal B, [facility] 2016-03-07 Completed Univ ersity of 00:00:00 [facility] Pneumococcal 13 2016-03-07 Completed Universit y of Conjugate, PCV13 00:00:00 [place] [facility] (Prevnar 13) Branch Meningococcal B, V 2016-03-07 Completed Univ ersity of 00:00:00 [facility] Pneumococcal 13 2016-03-07 Completed Universit y of Conjugate, PCV13 00:00:00 [place] [facility] (Prevnar 13) Branch Meningococcal B, [facility] 2016-03-07 Completed Univ ersity of 00:00:00 [facility] Pneumococcal 13 2016-03-07 Completed Universit y of Conjugate, PCV13 00:00:00 [place] [facility] (Prevnar 13) Branch Meningococcal B, [facility] 2016-03-07 Completed Univ ersity of 00:00:00 [facility] Pneumococcal 13 2016-03-07 Completed Universit y of Conjugate, PCV13 00:00:00 [place] [facility] (Prevnar 13) Branch Meningococcal B, OMV 2016-03-07 Completed Univ ersity of 00:00:00 [facility] Branch Pneumococcal 13 2016-03-07 Completed Universit y of Conjugate, PCV13 00:00:00 [facility] dical (Prevnar 13) Branch Meningococcal B, OMV 2016-03-07 Completed Univ ersity of 00:00:00 [facility] Pneumococcal 13 2016-03-07 Completed Universit y of Conjugate, PCV13 00:00:00 [facility] dical (Prevnar 13) Branch Meningococcal B, OMV 2016-03-07 Completed Univ ersity of 00:00:00 [facility] Pneumococcal 13 2016-03-07 Completed Universit y of Conjugate, PCV13 00:00:00 [place] [facility] (Prevnar 13) Branch Meningococcal B, OMV 2016-03-07 Completed Univ ersity of 00:00:00 [facility] Pneumococcal 13 2016-03-07 Completed Universit y of Conjugate, PCV13 00:00:00 [facility] dical (Prevnar 13) Branch Meningococcal B, OMV 2016-03-07 Completed Univ ersity of 00:00:00 [facility] Heamophilus Influenza 2015-11-13 Completed Uni versity of B 00:00:00 [facility] Heamophilus Influenza 2015-11-13 Completed Uni versity of B 00:00:00 [facility] Heamophilus Influenza 2015-11-13 Completed Uni versity of B 00:00:00 [facility] Heamophilus Influenza 2015-11-13 Completed Uni versity of B 00:00:00 [facility] Heamophilus Influenza 2015-11-13 Completed Uni versity of B 00:00:00 [facility] Heamophilus Influenza 2015-11-13 Completed Uni versity of B 00:00:00 [facility] Heamophilus Influenza 2015-11-13 Completed Uni versity of B 00:00:00 [facility] Heamophilus Influenza 2015-11-13 Completed Uni versity of B 00:00:00 [facility] Heamophilus Influenza 2015-11-13 Completed Uni versity of B 00:00:00 [facility] Heamophilus Influenza 2015-11-13 Completed Uni versity of B 00:00:00 [facility] Heamophilus Influenza 2015-11-13 Completed Uni versity of B 00:00:00 [facility] Heamophilus Influenza 2015-11-13 Completed Uni versity of B 00:00:00 [facility] Heamophilus Influenza 2015-11-13 Completed Uni versity of B 00:00:00 [facility] Heamophilus Influenza 2015-11-13 Completed Uni versity of B 00:00:00 [facility] Heamophilus Influenza 2015-11-13 Completed Uni versity of B 00:00:00 [facility] Heamophilus Influenza 2015-11-13 Completed Uni versity of B 00:00:00 [facility] Heamophilus Influenza 2015-11-13 Completed Uni versity of B 00:00:00 [facility] Heamophilus Influenza 2015-11-13 Completed Uni versity of B 00:00:00 [facility] Heamophilus Influenza 2015-11-13 Completed Uni versity of B 00:00:00 [facility] Heamophilus Influenza 2015-11-13 Completed Uni versity of B 00:00:00 [facility] Heamophilus Influenza 2015-11-13 Completed Uni versity of B 00:00:00 [facility] Heamophilus Influenza 2015-11-13 Completed Uni versity of B 00:00:00 [facility] Heamophilus Influenza 2015-11-13 Completed Uni versity of B 00:00:00 [facility] Heamophilus Influenza 2015-11-13 Completed Uni versity of B 00:00:00 [facility] Heamophilus Influenza 2015-11-13 Completed Uni versity of B 00:00:00 [facility] Heamophilus Influenza 2015-11-13 Completed Uni versity of B 00:00:00 [facility] Heamophilus Influenza 2015-11-13 Completed Uni versity of B 00:00:00 [facility] Heamophilus Influenza 2015-11-13 Completed Uni versity of B 00:00:00 [facility] Heamophilus Influenza 2015-11-13 Completed Uni versity of B 00:00:00 [facility] Heamophilus Influenza 2015-11-13 Completed Uni versity of B 00:00:00 [facility] Heamophilus Influenza 2015-11-13 Completed Uni versity of B 00:00:00 [facility] Heamophilus Influenza 2015-11-13 Completed Uni versity of B 00:00:00 [facility] Heamophilus Influenza 2015-11-13 Completed Uni versity of B 00:00:00 [facility] Meningococcal 2015-11-12 Completed University of Polysaccharide [...] (MCV4P) TDAP 2015-10-31 Completed University of 00:00:00 [facility] TDAP 2015-10-31 Completed University of 00:00:00 [facility] TDAP 2015-10-31 Completed University of 00:00:00 [facility] TDAP 2015-10-31 Completed University of 00:00:00 [facility] TDAP 2015-10-31 Completed University of 00:00:00 [facility] TDAP 2015-10-31 Completed University of 00:00:00 [facility] TDAP 2015-10-31 Completed University of 00:00:00 [facility] TDAP 2015-10-31 Completed University of 00:00:00 [facility] TDAP 2015-10-31 Completed University of 00:00:00 [facility] TDAP 2015-10-31 Completed University of 00:00:00 [facility] TDAP 2015-10-31 Completed University of 00:00:00 [facility] TDAP 2015-10-31 Completed University of 00:00:00 [facility] TDAP 2015-10-31 Completed University of 00:00:00 [facility] TDAP 2015-10-31 Completed University of 00:00:00 [facility] TDAP 2015-10-31 Completed University of 00:00:00 [facility] TDAP 2015-10-31 Completed University of 00:00:00 [facility] TDAP 2015-10-31 Completed University of 00:00:00 [facility] TDAP 2015-10-31 Completed University of 00:00:00 [facility] TDAP 2015-10-31 Completed University of 00:00:00 [facility] TDAP 2015-10-31 Completed University of 00:00:00 [facility] TDAP 2015-10-31 Completed University of 00:00:00 [facility] TDAP 2015-10-31 Completed University of 00:00:00 [facility] TDAP 2015-10-31 Completed University of 00:00:00 [facility] TDAP 2015-10-31 Completed University of 00:00:00 [facility] TDAP 2015-10-31 Completed University of 00:00:00 [facility] TDAP 2015-10-31 Completed University of 00:00:00 [facility] TDAP 2015-10-31 Completed University of 00:00:00 [facility] TDAP 2015-10-31 Completed University of 00:00:00 [facility] TDAP 2015-10-31 Completed University of 00:00:00 [facility] TDAP 2015-10-31 Completed University of 00:00:00 [facility] TDAP 2015-10-31 Completed University of 00:00:00 [facility] TDAP 2015-10-31 Completed University of 00:00:00 [facility] TDAP 2015-10-31 Completed University of 00:00:00 [facility] Pneumococcal 2014-04-01 Completed University o f Polysaccharide, 00:00:00 [place] [facility] PPSV23 (PNEUMOVAX) Branch Pneumococcal 2014-04-01 Completed University o f Polysaccharide, 00:00:00 [place] [facility] PPSV23 (PNEUMOVAX) Branch Pneumococcal 2014-04-01 [...] 12:44:00 131 mm[Hg] Univer sity of pressure [facility] Diastolic blood 2022-03-27 12:44:00 83 mm[Hg] Unive rsity of pressure [facility] Heart rate 2022-03-27 12:44:00 102 /min [facility] Body temperature 2022-03-27 12:44:00 37.11 Melissa Univ ersity of [place] [facility] Respiratory rate 2022-03-27 12:44:00 18 /min Univ ersity of [facility] Body height 2022-03-27 12:44:00 157.5 cm [facility] [place] [facility] Body weight 2022-03-27 12:44:00 96.616 kg [facility] [place] [facility] BMI 2022-03-27 12:44:00 38.96 kg/m2 [facility] [place] [facility] Oxygen saturation in 2022-03-27 12:44:00 98 /min University of Arterial blood by [facility] cipriano Pulse oximetry Branch Systolic blood 2022-03-02 15:40:00 113 mm[Hg] Univer sity of pressure [facility] Diastolic blood 2022-03-02 15:40:00 72 mm[Hg] Unive rsity of pressure [facility] Heart rate 2022-03-02 15:40:00 82 /min [facility] [place] [facility] Respiratory rate 2022-03-02 15:40:00 16 /min Univ ersity of [facility] Oxygen saturation in 2022-03-02 15:40:00 97 /min University of Arterial blood by [facility] Pulse oximetry Branch Body temperature 2022-03-02 15:23:00 36.28 Melissa Univ ers[facility] Body weight 2022-02-24 17:00:00 100.245 kg [facility] BMI 2022-02-24 17:00:00 40.42 kg/m2 [facility] Systolic blood 2022-03-02 15:25:00 98 mm[Hg] Univer sity of pressure [facility] Diastolic blood 2022-03-02 15:25:00 55 mm[Hg] Unive rsity of pressure [facility] Heart rate 2022-03-02 15:25:00 85 /min [facility] Respiratory rate 2022-03-02 15:25:00 18 /min Univ ersity of [facility] Oxygen saturation in 2022-03-02 15:25:00 100 /min University of Arterial blood by [facility] cipriano Pulse oximetry Branch Body temperature 2022-03-02 15:23:00 36.28 Melissa Univ ersity of [facility] Body weight 2022-02-24 17:00:00 100.245 kg [facility] BMI 2022-02-24 17:00:00 40.42 kg/m2 [facility] Procedures Procedure Date / Time Performing Source Performed Clinician POWER OF CONSERVATION TECHNICIAN 2022-06-01 [facility] 05:01:00 Unassigned, No [facility] POWER OF CONSERVATION TECHNICIAN 2022-05-13 [facility] 05:01:00 Unassigned, No [facility] DME/SUPPLY JUSTIFICATION 2022-05-06 [facility] it of 05:01:00 Unassigned, No [facility] EMG/NCV 2022-04-08 Brunilda [facility] of 14:43:00 [facility] CONSENT/REFUSAL FOR DIAGNOSIS AND 2022-03-27 [facility] TREATMENT 12:40:53 Unassigned, No [facility] PHYSICIAN ORDERS 2022-03-19 [facility] 05:01:00 Unassigned, No [facility] COLONOSCOPY (ENDO) 2022-03-02 Tray Jolly Ryan of 14:43:32 [facility] COLONOSCOPY (ENDO) 2022-03-02 [facility] of 14:43:32 [facility] COLONOSCOPY 2022-03-02 [facility] 14:02:00 [facility] ESOPHAGOGASTRODUODENOSCOPY 2022-03-02 [facility]erry [facility] ers[facility] of 14:02:00 [facility] EGD (ENDO) 2022-03-02 Rik [facility] of 13:53:24 [facility] EGD (ENDO) 2022[facility]03-02 [facility] of 13:53:24 [facility] POCT GLUCOSE(AGE >30DAYS) 2022-03-02 [facility] ersity of 12:59:00 [facility] POCT GLUCOSE(AGE >30DAYS) 2022-03-02 [facility] ersity of 12:59:00 [facility] POCT GLUCOSE (AUTOMATED) 2022-03-02 Cecile Márquez [facility] sity of 12:58:00 [facility] POCT GLUCOSE (AUTOMATED) 2022-03-02 Cecile M[facility]quez [facility] of 12:58:00 [facility] POCT TEST 2022-03-02 [facility] 12:48:00 [facility] POCT TEST 2022-03-02 [facility] 12:48:00 [facility] DAY SURGERY - ADC 2022-03-02 [facility] of 05:01:00 Unassigned, No [facility] Name Branch DME/SUPPLY JUSTIFICATION 2022-01-04 Doctor [facility] ity of 05:01:00 Unassigned, No [place] [facility] DME/SUPPLY JUSTIFICATION 2022-01-04 Doctor [facility] ity of 05:01:00 Unassigned, No [place] [facility] DISCLOSURE AND CONSENT, MEDICAL 2021-12-28 [facility] of AND SURGICAL PROCEDURES 05:01:00 Unassigned, No [facility] dical Name Branch DISCLOSURE AND CONSENT, MEDICAL 2021-12-28 [facility] AND SURGICAL PROCEDURES 05:01:00 Unassigned, No [facility] dical Name Branch Encounters Start End Encounter Admission Attending Care Care Encounter Source Date/Time Date/Time Type Type Clinicians Facility Department ID 2022-10-18 2022-10-18 Outpatient R GLENN [facility] [id number] Univers 10:00:00 10:00:00 MIROSLAVA [id number] [facility] 2022-08-24 2022-08-24 Outpatient Brock JOLLY [facility] [id number] Univers 09:00:00 09:00:00 TRAY [facility] 2022-08-13 2022-08-13 Outpatient Brock HINTON [facility] [id number] Univers 14:00:00 14:00:00 AN [id number] ity [facility] 2022-08-06 2022-08-06 Outpatient Brock HINTON [facility] [id number] Univers 16:30:00 16:30:00 AN [id number] ity [facility] 2022-06-17 2022-06-17 Outpatient STELLA DAVILA [facility] [id number] Univers 11:00:00 11:00:00 STELLA WORLEY [id number] it y [facility] 2022-06-15 2022-06-15 Outpatient Brock JOLLY [facility] [id number] Univers 08:00:00 08:00:00 TRAY [id number] ity of [facility] 2022-06-11 2022-06-11 [facility] 1.2.840.114 [id number] Univers 00:00:00 00:00:00 Tray HEALTH 350.1.13.10 it y of [place] 4.2.7.2.686 Emanuel as JOLLY?BLEA [id number] [address] OFFICE [facility] 2022-06-09 2022-06-09 [facility] 1.2.840.114 [id number] Univers 00:00:00 00:00:00 Tray HEALTH 350.1.13.10 it y of [place] 4.2.7.2.686 Emanuel as JOLLY?BLEA [id number] [address] OFFICE [facility] 2022-06-04 2022-06-04 Stella Barrow [facility] 1.2.840.114 [id number] Univers 00:00:00 00:00:00 HEALTH 350.1.13.10 it y [place] [id number] [address] OFFICE [facility] 2022-06-04 2022-06-04 Telephone NurseRy [facility] 1.2.840.114 [id number] Univers 00:00:00 00:00:00 HEALTH 350.1.13.10 it y of [place] 4.2.7.2.686 Emanuel as JOLLY?BLEA [id number] [address] OFFICE [facility] 2022-06-04 2022-06-04 Susan Márquez [facility] [id number] [id number] Univers 00:00:00 00:00:00 Cecile ZEESHANTON 350.1.13.10 i ty of [place] 4.2.7.2.686 [place]AN[place] [id number] [address] 2022-06-03 2022-06-03 Outpatient R STELLA WORLEY [facility] [id number] Univers 09:30:00 09:30:00 STELLA WORLEY [id number] it y of [facility] 2022-06-03 2022-06-03 Outpatient R STELLA WORLEY [facility] [id number] Univers 09:30:00 09:30:00 STELLA WORLEY it y of [facility] 2022-06-02 2022-06-02 RefStella Hamilton [facility] 1.2.840.114 [id number] Univers 00:00:00 00:00:00 HEALTH 350.1.13.10 it y [place] 4[place]2.[place].2.[place] [id number] [address] OFFICE [facility] 2022-06-02 2022-06-02 Susan WorleyStella [facility] 1.2.840.114 [id number] Univers 00:00:00 00:00:00 HEALTH 350.1.13.10 it y [place]2.7.2.686 [place] [id number] [address] 2022-06-02 2022-06-02 Telephone Willi [facility] 1.2.840.114 [id number] Univers 00:00:00 00:00:00 Cecile GREGORIO 350.1.13.10 i ty of [place] 4.2.7.2.[place] [id number] Id dical [address] 2022-06-01 2022-06-01 Orders Doctor CLAU 1.2.840.114 [id number] Univers 00:00:00 00:00:00 Only Unassigned, GRAYSON 350.1.13.10 ity of [place] [facility] 4.2.7.2.686 Emanuel as [id number] [address] 2022-06-01 2022-06-01 Susan WorleyStella [facility] 1.2.840.114 [id number] Univers 00:00:00 00:00:00 HEALTH 350.1.13.10 it y [place].2.[place] [id number] [address] OFFICE [facility] 2022-05-28 2022-05-28 Susan Jolly [facility] 1.2.840.114 [id number] Univers 00:00:00 00:00:00 [facility] 350.1.13.10 it y of [place] 4.2.7.2.686 Emanuel as JOLLY?BLEA [id number] Id gabi [address] MEDICAL OFFICE BUILDING 2022-05-26 2022-05-26 Stella Barrow [facility] 1.2.840.114 [id number] Univers 00:00:00 00:00:00 HEALTH 350.1.13.10 it y [place].2.[place] [id number] [address] OFFICE [facility] 2022-05-18 2022-05-18 Outpatient R SANJAY SÁNCHEZ [facility] [id number] Univers 09:00:00 09:00:00 [id number] ity [facility] 2022-05-18 2022-05-18 Outpatient R SANJAY SÁNCHEZ [facility] [id number] Univers 09:00:00 09:00:00 ity [facility] 2022-05-17 2022-05-17 Outpatient R [facility] [id number] Univers 09:00:00 09:00:00 [id number] y [facility] 2022-05-17 2022-05-17 Outpatient R RIK [facility] [id number] Univers 09:00:00 09:00:00 TRAY [facility] 2022-05-13 2022-05-13 Orders Doctor OLGUIN 1.2.840.114 [id number] Univers 00:00:00 00:00:00 Only Unassigned, GRAYSON 350.1.13.10 ity of [place] [facility] 4.2.7.2.686 Emanuel as [id number] [address] 2022-05-13 2022-05-13 Telephone Rik [facility] 1.2.840.114 [id number] Univers 00:00:00 00:00:00 [facility] 350.1.13.10 it y of [place] 4.2.7.2.686 Emanuel as JOLLY?BLEA [id number] Id samir[address] OFFICE [facility] 2022-05-10 2022-05-10 Outpatient R RIK [facility] [id number] Univers 16:15:00 16:15:00 TRAY [id number] ity [facility] 2022-05-10 2022-05-10 Outpatient Brock JOLLY [facility] [id number] Univers 16:15:00 16:15:00 TRAY itjay [facility] 2022-05-10 2022-05-10 Outpatient R BRUNILDA STELLA [facility] [id number] Univers 00:00:00 00:00:00 STELLA WORLEY it y of [facility] 2022-05-06 2022-05-06 Telephone Stella Worley [facility] 1.2.840.114 [id number] Univers 00:00:00 00:00:00 HEALTH 350.1.13.10 it y of [place] 4[place]2.7.2.[place] [id number] [place] [id number] Branch OFFICE BUILDING 2022-05-06 2022-05-06 Orders Doctor CLAU 1.2.840.114 [id number] Univers 00:00:00 00:00:00 Only Unassigned, GRAYSON 350.1.13.10 ity of [place] [facility] 4.2.7.2.686 Emanuel as [id number] [place] [id number] Branch 2022-04-29 2022-04-29 Outpatient Brock AGUILAR [facility] [id number] Univers 14:00:00 14:00:00 CLAU [id number] ity [facility] 2022-04-29 2022-04-29 Outpatient Brock AGUILAR [facility] [id number] Univers 14:00:00 14:00:00 CLAU ity [facility] 2022-04-14 2022-04-14 Outpatient VIK TAVERA [facility] [id number] Univers 09:00:00 09:00:00 ity [facility] 2022-04-12 2022-04-12 Susan Dyer [facility] 1.2.840.114 [id number] Univers 00:00:00 00:00:00 Ricardo GREGORIO 350.1.13.10 ity [facility] 4.2.7[place]2.686 [place] [id number] Id dical NAL 059 [facility] 2022-04-09 2022-04-09 Outpatient R MOMO [facility] [id number] Univers 11:00:00 11:00:00 ISAC [id number] ity [facility] 2022-04-09 2022-04-09 Outpatient R [facility] [id number] Univers 11:00:00 11:00:00 [facility] 2022-04-08 2022-04-08 [facility] 1.2.840.114 [id number] Univers 08:30:00 23:59:00 Encounter [facility] 350.1.13.10 ity [place].2.[place] [id number] [facility] [address] OFFICE [facility] 2022-04-08 2022-04-08 Outpatient R [facility] [id number] Univers 08:30:00 23:59:00 [facility] ity o f [facility] 2022-04-08 2022-04-08 Telephone Stella Worley [facility] 1..840.114 [id number] Univers 00:00:00 00:00:00 HEALTH 350.1.13.10 it y of [place].2.[place] [id number] [facility] [address] OFFICE [facility] 2022-04-02 2022-04-02 Outpatient Brock HINTON [facility] [id number] Univers 09:30:00 09:30:00 AN itjay [facility] 2022-03-31 2022-03-31 Telephone Rik [facility] 1.2.840.114 [id number] Univers 00:00:00 00:00:00 [facility] 350.1.13.10 it y of [place] 4.2.7.2.686 Emanuel as JOLLY?BLEA [id number] Id samirroshan CHAIREZ 044 [facility] OFFICE [facility] 2022-03-27 2022-03-27 Emergency [facility] 1.2.314.230 [id number] Univers 07:48:00 08:22:00 Destiny GREGORIO 350.1.13.10 i ty of [place] 4.2.7.2.686 [facility] [id number] 084 Neon 2022-03-27 2022-03-27 Emergency X ONEILL, [facility] ERT [id number] Univers 07:48:00 08:22:00 DESTINY ity of [facility] 2022-03-27 2022-03-27 Orders Doctor CLAU 1.2.840.114 [id number] Univers 00:00:00 00:00:00 Only Unassigned, GRAYSON 350.1.13.10 ity of [place] [facility] 4.2.7.2.686 Emanuel as [id number] [address] 2022-03-24 2022-03-24 Telephone [facility] 1.2.840.114 [id number] Univers 00:00:00 00:00:00 Tray HEALTH 350.1.13.10 it y of [place] 4.2.7.2.686 Emanuel as JOLLY?BLEA [id number] [address] MEDICAL OFFICE [facility] 2022-03-23 2022-03-23 Outpatient R STELLA WORLEY [facility] [id number] Univers 13:00:00 13:00:00 STELLA WORLEY [id number] it y of [facility] 2022-03-19 2022-03-19 Orders Doctor OLGUIN 1.2.840.114 [id number] Univers 00:00:00 00:00:00 Only Unassigned, GRAYSON 350.1.13.10 ity of [place] [facility] 4.2.7.2.686 Emanuel as [id number] [address] 2022-03-19 2022-03-19 Telephone [facility] 1.2.840.114 [id number] Univers 00:00:00 00:00:00 Tray HEALTH 350.1.13.10 it y of [place] 4.2.7.2.686 Emanuel as JOLLY?BLEA [id number] [address] MEDICAL OFFICE [facility] 2022-03-17 2022-03-17 Telephone [facility] 1.2.840.114 [id number] Univers 00:00:00 00:00:00 Tray HEALTH 350.1.13.10 it y of [place] 4.2.7.2.686 Emanuel as JOLLY?BLEA [phone] Id gabi CHAIREZ [address] MEDICAL OFFICE BUILDING 2022-03-12 2022-03-12 Stella Barrow [facility] 1.2.840.114 [id number] Univers 00:00:00 00:00:00 HEALTH 350.1.13.10 [place] [phone] [facility] [address] OFFICE BUILDING 2022-03-08 2022-03-08 [facility] 1.2.840.114 [id number] Univers 00:00:00 00:00:00 [facility] 350.1.13.10 it y of [place] 4.2.7.2.686 Emanuel as JOLLY?BLEA [phone] Id samir[address] OFFICE [facility] 2022-03-02 2022-03-02 Outpatient R [facility] MARCUS [id number] Univers 07:39:00 11:22:00 CECILE itjay of [facility] 2022-03-02 2022-03-02 [facility] 1.2.840.114 [id number] Univers 07:39:00 11:22:00 Encounter Cecile JG 350.1.13.10 [facility]y [facility] [place]2.[place].2.[place] [phone] [facility] [address] 2022-03-02 2022-03-02 [facility] 1.2.697.157 [id number] Univers 09:11:00 10:25:00 Cecile GREGORIO 350.1.13.10 i ty of [facility] 4[place]2.[place].2.[place] [phone] [facility] [address] 2022-03-02 2022-03-02 Orders Doctor OLGUIN 1.2.840.114 [id number] Univers 00:00:00 00:00:00 Only Unassigned, GRAYSON 350.1.13.10 ity of [place] [facility] 4.2.7.2.686 Emanuel as [phone] [address] 2022-03-01 2022-03-01 [facility]phone [facility] 1.2.840.114 [id number] Univers 00:00:00 00:00:00 Cecile JG 350.1.13.10 i ty [facility] [place].2.[place] [id number] Id dical NAL [address] [facility] 2022-03-01 2022-03-01 [facility] 1.2.840.114 [id number] Univers 00:00:00 00:00:00 Ricardo Roche ZEESHANCHRISTELLE 350.1.13.10 ity [facility] [place].2.[place] [id number] Id dicfl NAL 059 [facility] 2022-02-10 2022-02-10 Outpatient NAV GIANG [facility] [id number] Univers 00:00:00 00:00:00 [facility] 2022-01-11 2022-01-11 Outpatient Brock BARR [facility] [id number] Univers 14:45:00 23:59:00 [facility] 2021-12-28 2021-12-28 Outpatient Brock MÁRQUEZ [facility] [id number] Univers 09:30:00 10:07:08 CECILE [facility] 2021-11-16 2021-11-16 Outpatient Brock MÁRQUEZ [facility] [id number] Univers 09:30:00 09:30:00 CECILE [facility] 2021-10-22 2021-10-22 Outpatient Brock BARR [facility] [id number] Univers 14:45:00 14:45:00 [facility] 2021-09-29 2021-09-29 Outpatient Brock HENRIQUEZ [facility] [id number] Univers 16:14:01 23:59:00 CAPRICE [facility] 2021-07-10 2021-07-10 Outpatient Jessica_S ROBYN [facility] [id number] Devoted 05:13:00 05:13:00 1015 [facility] 2021-05-09 2021-05-09 Outpatient ROBYN SHOOK [id number] Devoted 11:00:00 11:00:00 0814 [facility] l [facility] 2021-05-08 2021-05-08 Outpatient R FLORENCE, [facility] [id number] Univers 07:37:21 23:59:00 CAPRICE flores [facility] 2021-05-07 2021-05-07 Outpatient DMG [facility] [id number] Devoted 12:00:00 12:00:00 0812 Medica l Group 2021-02-25 2021-02-25 [facility]phone [facility] [id number] 00:00:00 00:00:00 Ricardo Gregorio 350.1.13.10 Nini 4.2.7.2.686 Stephanie [id number] nal 059 Building Results Test Description Test Time Test Comments Results Result Comments Source POCT GLUCOSE (AUTOMATED) 2022-03-02 13:11:54 Test Item Value Reference Range Interpretation Comme nts POCT GLU (test code = 8252595238) 137 mg/dL 70-110 H Lab Interpretation (test code = 11131-3) Abnormal [facility] GLUCOSE (AUTOMATED)2022-03-02 13:11:54 Test Item Value Reference Range Interpretation Comments POCT GLU (test code = 1845000396) 137 mg/dL 70-110 H Lab Interpretation (test code = Abnormal 08130-6) [facility] [id number] 12:59:00 Test Item Value Reference Range Interpretation Comments POCT Glu (age>30days) (test code = 137 mg/dL 70-110 A 3342) Lab Interpretation (test code = Abnormal 04371-2) [facility] [id number] 12:59:00 Test Item Value Reference Range Interpretation Comments POCT Glu (age>30days) (test code = 137 mg/dL 70-110 A 3342) Lab Interpretation (test code = Abnormal 50404-3) [facility] [id number] 12:48:00 Test Item Value Reference Range Interpretation Comments POCT PREG (test code = 1605) Negative On board controls acceptable with Yes C Line (test code = 3574) POCT PREG LOT # (test code = 3575) [id number] POCT PREG TEST DATE (test 2023-06-25 code = 3576) [id number] 12:48:00 Test Item Value Reference Range Interpretation Comments POCT PREG (test code = 1605) Negative On board controls acceptable with Yes C Line (test code = 3574) POCT PREG LOT # (test code = 3575) [id number] POCT PREG TEST DATE (test 2023-06-25 code = 3576) [facility]
[2022-06-12] MEDS ORDERED: METOCLOPRAMIDE 10 MG/2mL INJ ONE (12:59)
[2022-06-12] MEDS ORDERED: ACETAMINOPHEN 500 MG TAB ONE (12:59)
[2022-06-12] MEDS ORDERED: NA CHLORIDE 0.9% 1,000 ML ONE ×3 (12:59→18:24)
[2022-06-12 13:00] LABS: Absolute Lymphocytes (CBC) 0.4 K/uL (0.7-4.9); Hematocrit 37.2 % (36.0-45.0); Lymphocytes % 3.2 % (15.3-44.8); MCV 89.2 fL (80-100); MPV 9.5 fL (7.6-11.3); RBC Red Blood Cell Count 4.16 M/uL (3.86-4.86)
[2022-06-12 13:03] LABS: Protime INR 1.07
[2022-06-12 13:15] LABS: Albumin 3.7 g/dL (3.4-5.0); Bilirubin Total 0.9 mg/dL (0.2-1.0); Protein, Total 7.4 g/dL (6.4-8.2)
[2022-06-12 14:26] LABS: Urine Blood Negative (Negative); Urine Glucose Negative (Negative); Urine Protein Negative (Negative); Urine pH 6.5 (5.0-7.0)
--- NOTE | 2022-06-12 14:36 | RAD REPORT ---
EXAM DESCRIPTION: Hernan Single View06/12/2022 2:09 pm CLINICAL HISTORY: sob COMPARISON: March 2022 FINDINGS: The lungs appear clear of acute infiltrate. The heart is normal size IMPRESSION: No acute abnormalities displayed
[2022-06-12 14:48] LABS: Urine Bacteria <20 /HPF (<20); Urine RBC <5 /HPF (None Seen); Urine WBC Clump Rare /HPF (None Seen)
[2022-06-12] MEDS ORDERED: AMITRIPTYLINE 50 MG TAB PO ONE (15:00)
--- NOTE | 2022-06-12 16:32 | ER ---
Nurse's Notes [facility] Name: iLnda Rahman Age: 46 yrs Sex: Female : 1975 Arrival Date: 06/12/2022 Time: 12:21 Bed 8 Private MD: Diagnosis: Sepsis, unspecified organism;UTI/ Urinary tract infection, site not specified Presentation: 06/12 12:21 Initial Sepsis Screen: Does the patient meet any 2 criteria? RR > 20 per min. Temp aa5 <36.0*C (96.8*F)) or > 38.3*C (100.9*F). Yes Does the patient have a suspected source of infection? Yes: Productive cough/pneumonia. 12:21 Acuity: HOLLEY 2 aa5 12:21 Onset of symptoms was June 11, 2022. aa5 12:21 Chief complaint: Patient states: chest pain and SOB that began last night. EMS reports aa5 fever of 102.8*F. Pt also reports cough. 12:21 Coronavirus screen: cough unrelated to allergies, shortness of breath. Ebola Screen: aa5 Patient denies travel to an Ebola-affected area in the 21 days before illness onset. Risk Assessment: Do you want to hurt yourself or someone else? Patient reports no desire to harm self or others. 12:21 Method Of Arrival: EMS: [facility] aa5 Historical: - Allergies: 12:31 Amoxicillin; aa5 12:31 Benadryl; aa5 12:31 Codeine; aa5 12:31 Demerol; aa5 12:31 Geodon; aa5 12:31 Meclizine; aa5 12:31 Tessalon Perles; aa5 - PMHx: 12:31 Anemia; Anxiety; diabetes mellitus; Hypertensive disorder; Hypothyroidism; Migraine; aa5 12:32 Asthma; aa5 - PSHx: 12:31 Cholecystectomy; Ligation of fallopian tube; aa5 - Immunization history:: Adult Immunizations up to date. - Social history:: Smoking status: Patient denies any tobacco usage or history of. Screenin:43 Abuse screen: Denies threats or abuse. Nutritional screening: No deficits noted. aa5 Tuberculosis screening: No symptoms or risk factors identified. Fall Risk None identified. Assessment: 12:21 General: Appears uncomfortable, Behavior is calm, cooperative. Pain: Complains of pain aa5 in chest and head Pain does not radiate. Pain currently is 9 out of 10 on a pain scale. Quality of pain is described as aching, sharp, Pain began 1 day ago. Is continuous. Neuro: Level of Consciousness is awake, alert, obeys commands, Oriented to person, place, time, situation. Cardiovascular: Reports chest pain, Heart tones S1 S2 present Rhythm is sinus tachycardia. Respiratory: Reports shortness of breath cough that is non-productive, Airway is patent Respiratory effort is even, unlabored, Respiratory pattern is tachypnea Breath sounds are clear bilaterally. GI: Abdomen is round non-distended, Bowel sounds present X 4 quads. Abd is soft and non tender X 4 quads. Reports nausea, Patient currently denies diarrhea, vomiting. : No signs and/or symptoms were reported regarding the genitourinary system. EENT: No signs and/or symptoms were reported regarding the EENT system. Derm: Skin is dry, Skin is normal, Skin temperature is hot. Musculoskeletal: Range of motion: intact in all extremities. 13:00 Reassessment: Pt sitting up in bed . Neuro: Level of Consciousness is awake, alert, aa5 obeys commands, Oriented to person, place, time, situation. Respiratory: Airway is patent Respiratory effort is even, unlabored, Respiratory pattern is regular, symmetrical. Derm: Skin is dry, Skin is normal, Skin temperature is hot. 13:49 Neuro: Level of Consciousness is awake, alert, obeys commands, Oriented to person, aa5 place, time, situation. Respiratory: Airway is patent Respiratory effort is even, unlabored, Respiratory pattern is regular, symmetrical, tachypnea. Derm: Skin is dry, Skin is normal, Skin temperature is hot. 14:10 Reassessment: Pt assisted to restroom . aa5 14:20 Reassessment: Patient is alert, oriented x 3, equal unlabored respirations, skin aa5 warm/dry/pink. 15:23 Reassessment: Patient is alert, oriented x 3, equal unlabored respirations, skin aa5 warm/dry/pink. 16:00 Reassessment: Patient is alert, oriented x 3, equal unlabored respirations, skin aa5 warm/dry/pink. 17:00 Reassessment: Pt assisted to restroom. . aa5 17:08 Reassessment: Patient is alert, oriented x 3, equal unlabored respirations, skin aa5 warm/dry/pink. Pt c/o chills at this time (see VS and NOV). 17:30 Reassessment: Pt resting in bed with eyes closed, respirations are even and unlabored. .aa5 18:40 Reassessment: Pt resting in bed with eyes closed, respirations even and unlabored. aa5 Awaiting room assignment. . Vital Signs: 12:21 BP 113 / 89; Pulse 148; Resp 24 S; Temp 101.4(O); Pulse Ox 95% on R/A; Weight 96.62 kg aa5 (R); Height 5 ft. 2 in. (157.48 cm) (R); Pain 9/10; 13:00 BP 103 / 59; Pulse 137; Resp 22 S; Pulse Ox 96% on R/A; aa5 13:49 BP 112 / 74; Pulse 120; Resp 26 S; Temp 101.2(O); Pulse Ox 95% on R/A; aa5 14:19 Temp 100.2(O); aa5 14:20 BP 99 / 58; Pulse 116; Resp 24 S; Pulse Ox 95% on R/A; aa5 15:23 BP 96 / 62; Pulse 106; Resp 20 S; Temp 99.0(O); Pulse Ox 98% on R/A; aa5 16:00 BP 109 / 69; Pulse 107; Resp 22 S; Pulse Ox 98% on R/A; aa5 17:08 BP 123 / 70; Pulse 126; Resp 24 S; Temp 100.5(O); Pulse Ox 95% on R/A; aa5 17:30 BP 90 / 62; Pulse 120; Resp 22 S; Pulse Ox 97% on R/A; aa5 18:40 BP 111 / 66; Pulse 114; Resp 20 S; Temp 100.2(O); Pulse Ox 97% on R/A; aa5 20:41 BP 120 / 92; Pulse 128; Resp 18; Temp 99.9(TE); Pulse Ox 100% on R/A; kl 12:21 Body Mass Index 38.96 (96.62 kg, 157.48 cm) aa5 17:08 MD notified of increased temperature and HR aa5 ED Course: 12:21 Patient arrived in ED. eb 12:21 Arm band placed on. aa5 12:21 Patient has correct armband on for positive identification. Placed in gown. Bed in low aa5 position. Call light in reach. Side rails up X2. Client placed on continuous cardiac and pulse oximetry monitoring. NIBP monitoring applied. 12:28 Nyasia Almanza, ABDULLAHI is Primary Nurse. aa5 12:29 Adriana Green MD is Attending Physician. sd2 12:29 Triage completed. aa5 12:43 EKG done, by ED staff, reviewed by Adriana Green MD. em1 12:43 First set of blood cultures drawn by me. aa5 12:43 Initial lab(s) drawn, by me, sent to lab. Inserted saline lock: 20 gauge in right aa5 antecubital area, using aseptic technique. Blood collected. 12:55 Second set of blood cultures drawn by me. aa5 14:11 Chest Single View XRAY In Process Unspecified. EDMS 16:30 Erik Brown MD is Hospitalizing Provider. sd2 18:12 Bhavin Park MD is Hospitalizing Provider. la1 18:28 Procalcitonin Sent. em6 18:28 DD Sent. em6 19:06 Report given to ABDULLAHI Delcid and ABDULLAHI Thompson. aa5 19:58 Primary Nurse role handed off by Nyasia Almanza, ABDULLAHI mw2 20:42 No provider procedures requiring assistance completed. Patient admitted, IV remains in kl place. Administered Medications: 12:59 Drug: Reglan (metoCLOPramide) 10 mg Route: IVP; Site: right antecubital; iw 13:15 Follow up: Response: No adverse reaction aa5 13:00 Drug: Acetaminophen 1000 mg Route: PO; iw 14:19 Follow up: Response: Temperature is decreased aa5 13:00 Drug: NS 0.9% 1000 ml Route: IV; Rate: 1 bolus; Site: right antecubital; iw 15:00 Follow up: IV Status: Completed infusion; IV Intake: 1000ml aa5 15:28 Drug: Amitriptyline 50 mg Route: PO; aa5 17:07 Follow up: Response: No adverse reaction aa5 15:42 Drug: NS 0.9% 1000 ml Route: IV; Rate: 1000 ml; Site: right antecubital; aa5 17:08 Follow up: IV Status: Completed infusion; IV Intake: 1000ml aa5 17:07 Drug: Cipro (ciprofloxacin) 400 mg Volume: 200 ml; Route: IVPB; Infused Over: 60 mins; aa5 Site: right antecubital; 18:07 Follow up: Response: No adverse reaction; IV Status: Completed infusion aa5 17:13 Drug: Ketorolac 15 mg Route: IVP; Site: right antecubital; aa5 17:20 Follow up: Response: No adverse reaction aa5 18:10 Drug: NS 0.9% 1000 ml Route: IV; Rate: 125 ml/hr; Site: right antecubital; em6 Medication: 20:57 VIS not applicable for this client. Intake: 15:00 IV: 1000ml; Total: 1000ml. aa5 17:08 IV: 1000ml; Total: 2000ml. 5 Outcome: 16:31 Decision to Hospitalize by Provider. sd2 20:42 Admitted to Med/surg accompanied by tech, room 422. 20:42 Condition: improved 20:42 Instructed on the need for admit. 21:53 Patient left the ED. Signatures: Dispatcher [employer] EDMS Lucila Wren RN RN kl Williams, Irene, RN RN iw Martinez, Eric em1 Nyasia Almanza RN RN aa5 Chris May, BEAM WORKER-C BEAM WORKER-[facility]1 Orion Alvarez 2 Zoey Talavera Stephanie, MD MD sd2 Nava Guerra RN RN em6 Corrections: (The following items were deleted from the chart) 12:30 12:29 Arm band placed on aa5 aa5
--- NOTE | 2022-06-12 16:32 | EDPHYS ---
Physician Documentation [facility] Name: Linda Rahman Age: 46 yrs Sex: Female : 1975 Arrival Date: 06/12/2022 Time: 12:21 Bed 8 Private MD: ALEXA Physician Adriana Green HPI: 06/12 12:45 This 46 yrs old Female presents to ER via EMS with complaints of Shortness Of sd2 Breath, Cough, Chest Pain. 12:45 46-year-old female presents via EMS with chief complaint of cough, chest pain and sd2 shortness of breath. She reports the symptoms started yesterday and have progressively worsened. She denies any known fevers until she arrived at the ER and was told that she had 1. She states that she had some intermittent shortness of breath that has since improved. Her cough has been nonproductive. She denies any recent sick contacts. She reports she also has an associated migraine which she has a history of. She has not taken her migraine medications today. She reports her migraine today feels like her normal migraines that she has had in the past. She also complains of body aches and chills.. Historical: - Allergies: 12:31 Amoxicillin; aa5 12:31 Benadryl; aa5 12:31 Codeine; aa5 12:31 Demerol; aa5 12:31 Geodon; aa5 12:31 Meclizine; aa5 12:31 Tessalon Perles; aa5 - PMHx: 12:31 Anemia; Anxiety; diabetes mellitus; Hypertensive disorder; Hypothyroidism; Migraine; aa5 12:32 Asthma; aa5 - PSHx: 12:31 Cholecystectomy; Ligation of fallopian tube; aa5 - Immunization history:: Adult Immunizations up to date. - Social history:: Smoking status: Patient denies any tobacco usage or history of. ROS: 12:45 Eyes: Negative for injury, pain, redness, and discharge, Cardiovascular: Negative for , sd2 palpitations, and edema. Positive for chest pain. Respiratory: Positive for SOB and cough. Negative for wheezing. Abdomen/GI: Negative for abdominal pain, nausea, vomiting, diarrhea. MS/Extremity: Negative for injury and deformity, Skin: Negative for injury, rash, and discoloration, Neuro: Positive for WHITT. Negative for numbness and tingling. 12:45 Constitutional: Positive for body aches, chills, fever, malaise, Negative for Exam: 12:45 Constitutional: This is a well developed, well nourished patient who is awake, alert, sd2 and in no acute distress. Head/Face: Normocephalic, atraumatic. Eyes: EOMI, normal conjunctiva bilaterally Chest/axilla: Normal chest wall appearance and motion. Nontender with no deformity. Cardiovascular: Tachycardic rate and regular rhythm with a normal S1 and S2. No gallops, murmurs, or rubs. 2+ distal pulses. Respiratory: Lungs have equal breath sounds bilaterally, clear to auscultation and percussion. No rales, rhonchi or wheezes noted. No increased work of breathing, no retractions or nasal flaring. Abdomen/GI: Soft, non-tender, with normal bowel sounds. No guarding or rebound. No evidence of tenderness throughout. Skin: Warm, dry with normal turgor. Normal color with no rashes, no lesions, and no evidence of cellulitis. MS/ Extremity: Pulses equal, no cyanosis. Neurovascular intact. Full, normal range of motion. Ambulatory without difficulty. Neuro: Awake and alert, GCS 15, oriented to person, place, time, and situation. Cranial nerves II-XII grossly intact. Motor strength 5/5 in all extremities. Sensory grossly intact. Cerebellar exam normal. Psych: Awake, alert, with orientation to person, place and time. Behavior, mood, and affect are within normal limits. 12:45 ECG was reviewed by the Attending Physician. Sinus tachycardia, rate 144, no STEMI sd2 criteria Vital Signs: 12:21 BP 113 / 89; Pulse 148; Resp 24 S; Temp 101.4(O); Pulse Ox 95% on R/A; Weight 96.62 kg aa5 (R); Height 5 ft. 2 in. (157.48 cm) (R); Pain 9/10; 13:00 BP 103 / 59; Pulse 137; Resp 22 S; Pulse Ox 96% on R/A; aa5 13:49 BP 112 / 74; Pulse 120; Resp 26 S; Temp 101.2(O); Pulse Ox 95% on R/A; aa5 14:19 Temp 100.2(O); aa5 14:20 BP 99 / 58; Pulse 116; Resp 24 S; Pulse Ox 95% on R/A; aa5 15:23 BP 96 / 62; Pulse 106; Resp 20 S; Temp 99.0(O); Pulse Ox 98% on R/A; aa5 16:00 BP 109 / 69; Pulse 107; Resp 22 S; Pulse Ox 98% on R/A; aa5 17:08 BP 123 / 70; Pulse 126; Resp 24 S; Temp 100.5(O); Pulse Ox 95% on R/A; aa5 17:30 BP 90 / 62; Pulse 120; Resp 22 S; Pulse Ox 97% on R/A; aa5 18:40 BP 111 / 66; Pulse 114; Resp 20 S; Temp 100.2(O); Pulse Ox 97% on R/A; aa5 20:41 BP 120 / 92; Pulse 128; Resp 18; Temp 99.9(TE); Pulse Ox 100% on R/A; kl 12:21 Body Mass Index 38.96 (96.62 kg, 157.48 cm) aa5 17:08 MD notified of increased temperature and HR aa5 MDM: 12:29 Patient medically screened. sd2 12:45 Differential diagnosis: Sepsis, dehydration, electrolyte abnormality, viral URI, COVID, sd2 flu, doubt meningitis, UTI among others. Data reviewed: vital signs, nurses notes, EMS record, EKG. 15:48 ED course: Source of infection identified at this time for patient to meet sepsis sd2 criteria. Antibiotics ordered. IVFs have already been given and cultures sent. LA WNL. No signs of end organ damage at this time. MAP>65.. 16:29 Data reviewed: lab test result(s), radiologic studies. Counseling: I had a detailed sd2 discussion with the patient and/or guardian regarding: the historical points, exam findings, and any diagnostic results supporting the discharge/admit diagnosis, lab results, radiology results, the need for further work-up and treatment in the hospital. Physician consultation: Erik Brown MD was called at 16:30, was contacted at 16:30, regarding admission, and will see patient in ED, shortly. 06/12 12:28 Order name: Blood Culture Adult (2) [facility] 06/12 12:28 Order name: CBC with Diff [facility] 06/12 12:28 Order name: CMP; Complete Time: 13:49 [facility] 06/12 12:28 Order name: Lactate; Complete Time: 13:49 [facility] 06/12 12:28 Order name: Protime (+inr); Complete Time: 13:49 [facility] 06/12 12:28 Order name: Ptt, Activated; Complete Time: 13:49 [facility] 06/12 12:44 Order name: Urine Microscopic Only; Complete Time: 15:45 [facility] 06/12 12:44 Order name: SARS-COV-2 RT PCR (Document "Date of Onset" if Symptomatic); Complete Time: sd2 13:49 06/12 12:44 Order name: Influenza Screen (a \\T\\ B); Complete Time: 13:49 [facility] 06/12 14:27 Order name: Urine --Ancillary (enter results) 06/12 14:27 Order name: Urine Dipstick-Ancillary; Complete Time: 14:38 [facility] 06/12 15:30 Order name: Urine Culture [facility] 06/12 18:09 Order name: DD; Complete Time: 19:04 [facility] 06/12 18:11 Order name: Procalcitonin; Complete Time: 20:15 [facility] 06/12 12:28 Order name: Cardiac monitoring; Complete Time: 13:06 [facility] 06/12 12:28 Order name: EKG - Nurse/Tech; Complete Time: 12:42 [facility] 06/12 12:44 Order name: Chest Single View XRAY; Complete Time: 14:38 [facility] 06/12 19:05 Order name: Chest For PE Angio CT [facility] 06/12 19:56 Order name: CT; Complete Time: 20:15 [facility] 06/12 21:21 Order name: CBC Smear Scan [facility] 06/12 12:28 Order name: IV Saline Lock - Large Bore; Complete Time: 13:00 [facility] 06/12 12:28 Order name: Labs collected and sent; Complete Time: 13:06 [facility] 06/12 12:44 Order name: Cardiac monitoring; Complete Time: 13:05 [facility] 06/12 12:44 Order name: EKG - Nurse/Tech; Complete Time: 13:05 [facility] 06/12 12:44 Order name: O2 Per Protocol; Complete Time: 13:06 06/12 12:44 Order name: O2 Sat Monitoring; Complete Time: 13:06 06/12 12:44 Order name: Urine Dipstick-Ancillary (obtain specimen); Complete Time: 14:25 sd06/12 12:44 Order name: Urine Test (obtain specimen); Complete Time: 14:26 sd2 Administered Medications: 12:59 Drug: Reglan (metoCLOPramide) 10 mg Route: IVP; Site: right antecubital; iw 13:15 Follow up: Response: No adverse reaction aa5 13:00 Drug: Acetaminophen 1000 mg Route: PO; iw 14:19 Follow up: Response: Temperature is decreased aa5 13:00 Drug: NS 0.9% 1000 ml Route: IV; Rate: 1 bolus; Site: right antecubital; iw 15:00 Follow up: IV Status: Completed infusion; IV Intake: 1000ml aa5 15:28 Drug: Amitriptyline 50 mg Route: PO; aa5 17:07 Follow up: Response: No adverse reaction aa5 15:42 Drug: NS 0.9% 1000 ml Route: IV; Rate: 1000 ml; Site: right antecubital; aa5 17:08 Follow up: IV Status: Completed infusion; IV Intake: 1000ml aa5 17:07 Drug: Cipro (ciprofloxacin) 400 mg Volume: 200 ml; Route: IVPB; Infused Over: 60 mins; aa5 Site: right antecubital; 18:07 Follow up: Response: No adverse reaction; IV Status: Completed infusion aa5 17:13 Drug: Ketorolac 15 mg Route: IVP; Site: right antecubital; aa5 17:20 Follow up: Response: No adverse reaction aa5 18:10 Drug: NS 0.9% 1000 ml Route: IV; Rate: 125 ml/hr; Site: right antecubital; em6 Disposition Summary: 06/12/22 16:31 Hospitalization Ordered Hospitalization Status: Inpatient Admission sd2 Location: Telemetry/MedSurg (Inpatient) sd2 Condition: Stable sd2 Problem: new sd2 Symptoms: have improved sd2 Bed/Room Type: Standard sd2 Provider: Bhavin Park(06/12/22 18:12) la1 Room Assignment: [facility](06/12/22 20:07) cg Diagnosis - Sepsis, unspecified organism sd2 - UTI/ Urinary tract infection, site not specified sd2 Forms: - Medication Reconciliation Form sd2 - SBAR form sd2 Signatures: Dispatcher [employer] EDMS Lucila Wren RN RN kl Williams, Irene, RN RN iw Calderon, Audri, RN RN aa5 Chris May, ELECTRICAL SYSTEMS ENGINEER-C ELECTRICAL SYSTEMS ENGINEER-Cla1 Fallon Blum RN RN Adriana Zuleta MD MD sd2 Nava Guerra RN RN em6 Corrections: (The following items were deleted from the chart) 13:06 12:28 Accucheck ordered. aa5 aa5 13:06 12:28 Oxygen Per Protocol ordered. aa5 aa5 13:06 12:28 O2 Sat Monitoring ordered. 5 aa5 14:10 13:50 Chest Single View+RAD.RAD.BRZ ordered. EDAR EDMS 18:12 16:31 Erik Brown sd2 la1 20:07 16:31 sd2
[2022-06-12] MEDS ORDERED: CIPROFLOXACIN 400mg IV 400 MG/200 ML BAG IV ONE (16:34)
[2022-06-12] MEDS ORDERED: KETOROLAC 30 MG/ML INJ ONE (17:21)
--- NOTE | 2022-06-12 19:32 | P.HP ---
Certification for Inpatient Patient admitted to: Inpatient With expected LOS: >2 Midnights Patient will require the following post-hospital care: None Practitioner: I am a practitioner with admitting privileges, knowledge of patient current condition, hospital course, and medical plan of care. Services: Services provided to patient in accordance with Admission requirements found in Title 42 Section 412.3 of the Code of Federal Regulations Patient History Date of Service: 06/12/22 Reason for admission: Sepsis History of Present Illness: 46-year-old female with history of diabetes mellitus type [id number], hypertension, hypothyroidism, asthma, anemia and migraines presents emergency department for cough, shortness of breath. She reports her symptoms started last night along with fever/chills. She was evaluated in the emergency department her labs were significant for elevated white blood cell count 12.4 elevated D-dimer 858 glucose 241 procalcitonin 0.62 urinalysis with 10-20 white cells no bacteria present 1+ leuk esterase on dip chest x-ray negative for acute findings. Patient met sepsis criteria given SIRS criteria present including heart rate greater than 90, respiratory rate greater than 20, white blood cell count 12.4, fever-suspected source of infection with possible pneumonia given shortness of breath, cough. She was negative for flu and COVID CT PE protocol was ordered to rule out pulmonary embolism/pneumonia given elevated D-dimer. Patient was treated with antibiotics in the emergency departmentCipro blood cultures were obtained. ED prior wishes to admit for further evaluation and management. Allergies amoxicillin [Amoxicillin] Allergy (Mild, Verified 08/14/17 10:28) Hives meperidine HCl [From Demerol] Allergy (Verified 08/14/17 10:28) Anaphylaxis ziprasidone HCl [From Geodon] Allergy (Verified 08/14/17 10:28) Anaphylaxis meclizine Adverse Reaction (Intermediate, Verified 08/14/17 10:28) Anaphylaxis diphenhydramine [From Benadryl] Adverse Reaction (Verified 08/14/17 10:28) Anaphylaxis lorazepam Adverse Reaction (Verified 08/14/17 10:28) Anaphylaxis ziprasidone mesylate [From Geodon] Adverse Reaction (Verified 08/14/17 10:28) Anaphylaxis Amoxicillin Allergy (Uncoded 08/14/17 10:28) Anaphylaxis Tessalon Allergy (Uncoded 08/14/17 10:28) Anaphylaxis Tessalon Adilene Adverse Reaction (Uncoded 08/14/17 10:28) Anaphylaxis Home Medications: Amitriptyline [Elavil*] 100 mg PO BEDTIME 08/14/17 Citalopram Hydrobromide [Citalopram HBr] 40 mg PO DAILY 08/14/17 Cyanocobalamin (Vitamin B-12) [Cyanocobalamin Injection] 1 ml IM DIRECTED 08/14/17 Ferrous Sulfate [Ferrous Sulfate*] 1 tab PO TID 08/14/17 Levothyroxine [Synthroid*] 50 mcg PO [id number] 08/14/17 Cyclobenzaprine HCl [Flexeril] 5 mg PO Q8HR PRN 12/05/20 Pregabalin [Lyrica] 150 mg PO TID 12/05/20 Rosuvastatin [Crestor*] 10 mg PO BEDTIME 12/05/20 Albuterol Sulfate [Proair Digihaler] 2 puff IH Q6H 08/17/21 Buspirone HCl 20 mg PO BID 08/17/21 Diclofenac Sodium [Voltaren] 75 mg PO BID 08/17/21 Fluticasone [Flovent Hfa 110*] 2 sprays IH BID 08/17/21 Ciprofloxacin HCl [Cipro 500 MG Tablet] 500 mg PO BID #10 tab 01/14/22 Diltiazem HCl [Cartia Xt] 120 mg PO BID 01/14/22 Docusate Sodium 100 mg PO DAILY 01/14/22 Ginkgo Biloba [place] Extract [Ginkgo Biloba] 120 mg PO DAILY 01/14/22 Hydrocodone 5/APAP 325 [[place] 5/325] 1 tab PO Q6H PRN #15 tab 01/14/22 Levalbuterol [Xopenex*] 0.63 mg NEB TID PRN 01/14/22 Loratadine [Claritin*] 10 mg PO DAILY 01/14/22 Losartan Potassium 50 mg PO BID 01/14/22 Metformin ER [Glucophage ER*] 500 mg PO DAILY 01/14/22 Mirabegron [Myrbetriq] 50 mg PO DAILY 01/14/22 Pantoprazole [Protonix Tab*] 40 mg PO DAILY 01/14/22 Promethazine HCl 25 mg PO Q6H 01/14/22 Semaglutide [Ozempic] 0.25 mg SQ ONCE 01/14/22 Sucralfate [Carafate*] 1 gm PO ACHS 01/14/22 - Past Medical/Surgical History Diabetic: Yes -: Chronic diastolic congestive heart failure -: pernicious anemia -: asthma -: major depression -: hypothyroidism -: anxiety -: neuropathy -: hypertension -: high cholesterol -: learning disability -: tachycardia -: sleep apnea -: cholecystecomy -: tubal ligation Psychosocial/ Personal History: Patient is on disability, lives at home with her family - Family History Mother -: Hypertension, Kidney disease Notes: celiac, oa, Father -: Hypertension, Diabetes, Other (see notes) Notes: high cholesterol - Social History Alcohol use: No CD- Drugs: No Caffeine use: Yes Place of Residence: Home Review of Systems 10-point ROS is otherwise unremarkable General: Fever, Chills, Weakness, Malaise Respiratory: Cough, Dry, Shortness of Breath Physical Examination - Physical Exam General: Alert, In no apparent distress, Oriented x3 HEENT: Atraumatic, PERRLA, Mucous membr. moist/pink, EOMI, Sclerae nonicteric Neck: Supple, 2+ carotid pulse no bruit, No LAD, Without JVD or thyroid abnormality Respiratory: Clear to auscultation bilaterally, Normal air movement Cardiovascular: Regular rate/rhythm, Normal S1 S2 Capillary refill: <2 Seconds Gastrointestinal: Normal bowel sounds, No tenderness Musculoskeletal: No tenderness Integumentary: No rashes Neurological: Normal gait, Normal speech, Normal strength at 5/5 x4 extr, Normal tone, Normal affect - Studies Laboratory Data (last 24 hrs) 06/12/22 12:43: PT 11.8, INR 1.07, APTT 28.9 06/12/22 12:43: Sodium 135 L, Potassium 4.0, BUN 7, Creatinine 1.21, Glucose 241 H, Total Bilirubin 0.9, AST 8 L, ALT 21, Alkaline Phosphatase 161 H 06/12/22 12:43: WBC 12.40 H, Hgb 12.6, Hct 37.2, Plt Count 235 Microbiology Data (last 24 hrs): 06/12/22 12:52 Nasopharnyx Influenza Type A Antigen Screen - Final 06/12/22 12:52 Nasopharnyx Influenza Type B Antigen Screen - Final Assessment and Plan - Plan Assessment: Sepsis Dyspnea Diabetes mellitus type [id number] with hyperglycemia Hypothyroidism Asthma Plan: Sepsis: Unclear source but suspect respiratory etiology given new onset shortness of breath, tachypnea. Suspect developing pneumonia bacterial versus viral given otherwise blood cell count will continue with IV antibiotics Rocephin/Zithromax, blood cultures were obtained. CT angiogram pending given elevated D-dimer to rule out pneumonia/PE. Possibly viral sepsis if no other source is identified. Continue with incentive telemetry. Dyspnea: Continue as above, incentive [place], Tesheather Malone ordered. Supplemental oxygen as needed. Patient with history of asthma we will provide nebulizer meds as needed as well. Diabetes mellitus type [id number] with hyperglycemia: Sliding scale insulin. Hypothyroidism: Continue home medication Asthma: As needed nebulizer treatments. DVT PPX: Lovenox Code status: Full Discharge Plan: Home Plan to discharge in: 48 Hours - Advance Directives Does patient have a Living Will: No Does patient have a Durable POA for Healthcare: No - Code Status/Comfort Care Code Status Assessed: Yes (Full code) Critical Care: No Time Spent Managing Pts Care (In Minutes): 70
--- NOTE | 2022-06-12 19:55 | RAD REPORT ---
EXAM DESCRIPTION: CT - Chest For Pe Angio - 06/12/2022 7:36 pm CLINICAL HISTORY: Chest pain COMPARISON: 2017 TECHNIQUE: Dynamically enhanced axial 3 mm thick images of the chest were obtained during administra tion of <100> mL Isovue 370 IV contrast. Coronal and oblique reconstruction images were generated and reviewed. Exam utilizes a protocol for optimal evaluation of pulmonary arterial tree. Maximum intensity projections 3D imaging was utilized All CT scans are performed using dose optimization technique as appropriate and may include automated exposure control or mA/KV adjustment according to patient size. FINDINGS: A pulmonary embolus is not seen. A thoracic aortic aneurysm is not noted. A pleural effusion is not seen. A pericardial effusion is not seen. A lung consolidation is not present. IMPRESSION: Negative for a pulmonary embolism.
[2022-06-12 21:21] LABS: Blood Morphology Comment NOT SEEN (NOT SEEN); Platelet Estimate ADEQ; White Blood Cell Scan OK (OK)
[2022-06-12] MEDS: INSULIN -REGULAR HUMAN 50 UNIT/0.5 ML ML SQ SCH (21:39)
[2022-06-12] MEDS ORDERED: ONDANSETRON 4 MG/2 ML VIAL IV PRN (21:39)
[2022-06-12] MEDS ORDERED: ACETAMINOPHEN 500 MG TAB PO PRN (21:39)
[2022-06-12] MEDS ORDERED: BENZONATATE 100 MG CAP PO PRN (21:39)
[2022-06-12] MEDS ORDERED: MORPHINE 2 MG/ML SYR IV PRN (22:11)
[2022-06-12] MEDS ORDERED: NA CHLORIDE 0.9% 500 ML IV ONE (22:12)
[2022-06-12] MEDS: NA CHLORIDE 0.9% 1,000 ML IV SCH (22:27)
[2022-06-12] MEDS ORDERED: MORPHINE 2 MG/ML SYR ONE (22:30)
[2022-06-12 23:09] VITALS: BMI 38.9
[2022-06-12] MEDS: HYDROCODONE/APAP 7.5/325 MG TAB PO PRN (23:40)
[2022-06-13 03:52] LABS: Absolute Lymphocytes (CBC) 0.8 K/uL (0.7-4.9); Hematocrit 30.1 % (36.0-45.0); Lymphocytes % 6.6 % (15.3-44.8); MCV 90.7 fL (80-100); RBC Red Blood Cell Count 3.32 M/uL (3.86-4.86)
[2022-06-13 04:17] LABS: Albumin 2.8 g/dL (3.4-5.0); Bilirubin Total 1.4 mg/dL (0.2-1.0); Magnesium 1.9 mg/dL (1.8-2.4); Potassium 3.9 mmol/L (3.5-5.1); Protein, Total 5.9 g/dL (6.4-8.2); Thyroid Stimulating Hormone 0.695 uIU/mL (0.360-3.740)
[2022-06-13] MEDS: INSULIN -REGULAR HUMAN 50 UNIT/0.5 ML ML SQ SCH ×2 (07:30→11:30)
--- NOTE | 2022-06-13 08:52 | P.PN ---
Subjective Date of Service: 06/13/22 Chief Complaint: Sepsis Subjective: Improving Patient is 46 years of age metabolic syndrome admitted with cough congestion shortness of breath fever and chills mildly elevated white count no obvious source of infection you have sleep apnea does not take any CPAP CT does not show any evidence of pneumonia CT pulmonary angiogram is negative vital signs stable influenza AB screen including COVID screen all negative Review of Systems General: Weakness Respiratory: Cough, Shortness of Breath Physical Examination - Vital Signs Temperature: 97.6 F Blood Pressure: 96/58 Pulse: 95 Respirations: 16 Pulse Ox (%): 96 - Physical Exam General: Alert, Oriented x3, Mild distress Neck: Supple Cardiovascular: No edema, Normal S1 S2 - Studies Laboratory Data (last 24 hrs) 06/12/22 12:43: PT 11.8, INR 1.07, APTT 28.9 06/12/22 12:43: Sodium 135 L, Potassium 4.0, BUN 7, Creatinine 1.21, Glucose 241 H, Total Bilirubin 0.9, AST 8 L, ALT 21, Alkaline Phosphatase 161 H 06/12/22 12:43: WBC 12.40 H, Hgb 12.6, Hct 37.2, Plt Count 235 Microbiology Data (last 24 hrs): 06/12/22 12:52 Nasopharnyx Influenza Type A Antigen Screen - Final 06/12/22 12:52 Nasopharnyx Influenza Type B Antigen Screen - Final Assessment And Plan - Current Problems (Diagnosis) (1) Sepsis Current Visit: No Status: Acute Plan: Age 46 admitted with acute onset of fever cough chills shortness of breath resume viral there is no evidence of pneumonia no evidence of UTI was febrile on admission on admission with screen so far is negative patient is morbidly obese continue with ceftriaxone vital signs are stable blood pressure is slightly low influenza a and B screen is also negative Qualifiers: Sepsis type: sepsis due to unspecified organism Sepsis acute organ dysfunction status: without acute organ dysfunction Qualified Code(s): A41.9 - Sepsis, unspecified organism
[2022-06-13] MEDS ORDERED: CEFTRIAXONE 1,000 MG in NA CHLORIDE 0.9% 50 ML IVPB SCH (09:00)
[2022-06-13] MEDS ORDERED: ENOXAPARIN 40 MG/0.4 ML SQ SCH (09:00)
[2022-06-13] MEDS ORDERED: AZITHROMYCIN IV 500 MG in NA CHLORIDE 0.9% 250 ML IVPB SCH (09:00)
[2022-06-13] MEDS: NA CHLORIDE 0.9% 1,000 ML IV SCH (09:21)
[2022-06-13] MEDS: HYDROCODONE/APAP 7.5/325 MG TAB PO PRN (14:23)
--- NOTE | 2022-06-13 15:56 | EKG ---
Test Date: 2022-06-12 Test Time: 12:34:02 Industrial Technology Teacher: ELLE MEASUREMENT RESULTS: Intervals: Rate: 144 ND: QRSD: 106 QT: 370 QTc: 572 [place]: P: ND: QRS: -69 T: 49 INTERPRETIVE STATEMENTS: Supraventricular tachycardia Pulmonary disease pattern Incomplete right bundle branch block Left anterior fascicular block Abnormal ECG Compared to ECG 04/17/2022 15:30:48 Incomplete right bundle-branch block now present Sinus tachycardia no longer present ST (T wave) deviation no longer present Electronically Signed On 06-13-22 15:54:30 CDT by Elijah Lock
[2022-06-14 09:03] VITALS: BP 120/92; TEMP 99.9; O2SAT 100
== END 2022-06-13 16:00 | disposition left against medical advice (07) | DRG 872 ==
LOC: ER 12:18 → ERHOLD 18:03 → 4TH 20:44
PROVIDERS: ADMIT Internal Medicine Sleep Medicine; ATTEND Internal Medicine Sleep Medicine
DX: A41.9 Sepsis, unspecified organism (principal); I50.32 Chronic diastolic (congestive) heart failure; I11.0 Hypertensive heart disease with heart failure; E11.65 Type 2 diabetes mellitus with hyperglycemia; E03.9 Hypothyroidism, unspecified; E66.01 Morbid (severe) obesity due to excess calories; J45.909 Unspecified asthma, uncomplicated; Z88.1 Allergy status to other antibiotic agents; Z88.8 Allergy status to other drugs, medicaments and biological substances; Z68.38 Body mass index [BMI] 38.0-38.9, adult; Z90.49 Acquired absence of other specified parts of digestive tract; Z53.29 Procedure and treatment not carried out because of patient's decision for other reasons; Z90.710 Acquired absence of both cervix and uterus; Z79.890 Hormone replacement therapy; Z79.899 Other long term (current) drug therapy; Z20.822 Contact with and (suspected) exposure to COVID-19
CPT/HCPCS: 36415; 71045; 71275; 80053; 81003; 81015; 81025; 82947; 83605; 83735; 84145; 84439; 84443; 85025; 85379; 85610; 85730; 87040; 87086; 87088; 87804; 93005; 94010; 96361; 96365; 96375; 99285; J0744; J1650; J2270; J2405; J2765; J7030; Q9967; U0003

== ENCOUNTER 2022-07-10 13:32 | Emergency (ER) | payer OTHER ==
--- OUTSIDE RECORDS SUMMARY | 2022-07-10 13:57 | XMS REPORT | Continuity of Care Document ---
:1975 Author Organization [facility] t Address [address] [place] [address] Care Team Providers Name Role Phone Tray Jolly MD Primary Care Physician [phone] CECILE MÁRQUEZ Attending Clinician Unavailable MARIBEL TINSLEY Attending Clinician Unavailable ARNOLDO ELIZABETH Attending Clinician Unavailable TRAY JOLLY Attending Clinician Unavailable Tray Jolly MD Attending Clinician STELLA WORLEY Attending Clinician Unavailable STELLA WORLEY Attending Clinician Unavailable Doctor Unassigned, [place] Attending Clinician Unavailable Cecile Márquez MD Attending Clinician NurseRy Attending Clinician Unavailable SANJAY SÁNCHEZ Attending Clinician Unavailable CLAU AGUILAR Attending Clinician Unavailable VIK OLIVEIRA Attending Clinician Unavailable Atul HOLLINS, Sendil K.H. Attending Clinician ISAC BARR Attending Clinician Unavailable Sheri Berrios MD Attending Clinician SHERI BERRIOS Attending Clinician Unavailable MATEO HINTON Attending Clinician Unavailable Destiny Oneill MD Attending Clinician DESTINY ONEILL Attending Clinician Unavailable Nisa MD, Wondiful A Attending Clinician Roxanne HOLLINS, Vik Chahal Attending Clinician CAPRICE HENRIQUEZ Attending Clinician Unavailable Young Zarate RN Attending Clinician Unavailable NAV ANTONIO Attending Clinician Unavailable Isac Barney Attending Clinician Wil HOLLINS, Mateo العراقي Attending Clinician Reji HOLLINS, Arnoldo Attending Clinician Jessie [facility] Genesis Shah Attending Clinician GABRIELLA SALAS Attending Clinician Unavailable ANDREA PAULA Attending Clinician Unavailable Scot [facility], Vik Fleming Attending Clinician Yumiko NI, Sanjay Attending Clinician Corry Woodall Attending Clinician CORRY COON Attending Clinician Unavailable Caprice Henriquez MD Attending Clinician Caprice Ozuna RN Attending Clinician Unavailable Pob, [facility] Main Attending Clinician Unavailable Jorge Edmondson Attending Clinician Unavailable SHORTY YU Attending Clinician Unavailable Eladia Attending Clinician Unavailable Emily Garcia MA Attending Clinician Unavailable LAUREEN MILLAN Attending Clinician Unavailable Laureen Millan NP Attending Clinician LAILA ORELLANA Attending Clinician Unavailable LAILA ORELLANA Attending Clinician Unavailable Rd Prasad MD Attending Clinician RD PRASAD Attending Clinician Unavailable CHELA BLANCO Attending Clinician Unavailable EMERY VALIENTE Attending Clinician Unavailable Tatiana MITCHELL Attending Clinician Unavailable Daria Zaman Attending Clinician Unavailable ROGE TENORIO Attending Clinician Unavailable RICARDO POLLARD Attending Clinician Unavailable MARCELINA VALERA Attending Clinician Unavailable MARCELINA VALERA Attending Clinician Unavailable TAMMY LINDO Attending Clinician Unavailable LIANA JOSEPH Attending Clinician Unavailable LAKISHA MAN Attending Clinician Unavailable SHANTI DUCKWORTH Attending Clinician Unavailable BALJIT CURRY Attending Clinician Unavailable AUBRIE SCHAEFFER Attending Clinician Unavailable DORITA MORE Attending Clinician Unavailable FABRICIO DOSS Attending Clinician Unavailable CL DEGROOT Attending Clinician Unavailable CECILE MÁRQUEZ Admitting Clinician Unavailable STELLA WORLEY Admitting Clinician Unavailable Cecile Márquez MD Admitting Clinician MATEO HINTON Admitting Clinician Unavailable DESTINY ONEILL Admitting Clinician Unavailable Jessica_Mitzy Admitting Clinician Unavailable CAPRICE HENRIQUEZ Admitting Clinician Unavailable Payers Payer Name Policy Type Policy Number Effective Date Expiration Date Mitzy [facility] DUAL [id number] 2021 COMP CHOICE PPO 00:00:00 DSNP [facility] STAR PLUS [id number] 2021 00:00:00 MEDICAID [facility] [id number] 2016 00:00:00 [facility] DAY8 2021 (MEDICARE 00:00:00 REPLACEMENT HMO) [employer] [id number] 2020 BEHAVIORAL 00:00:00 SOLUTIONS Problems Condition Condition Condition Status Onset Resolution [...] Added automatic ally from request for surgery [id number] Chronic Chronic Disease Active Overview: Univ ers superficia superficia 4-05 Formattin ity of l l 00:00: g of this [place] gastritis gastritis 00 note Medi cipriano without without might be Branch bleeding bleeding different from the original. 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 Added automatic ally from request for surgery [id number] Indigestio Indigestio Disease Active 2020-09 Overview : Univers n n 2-15 Formattin ity of 00:00: g of this [place] 00 note Medical might be Branch different from the original. Added automatic ally from request for surgery [id number] Bloating Bloating Disease Active 2020-09 Overview: Un jerrod 2-15 Formattin ity of 00:00: g of this note Medical might be Branch different from the original. Added automatic ally from request for surgery [id number] Dental Dental Disease Active Univers caries caries [...] Branch Trochanter Trochanter Disease Active 2016-09 U cliffers ic ic 2-04 ity of bursitis bursitis [...] Disease Active Univers 7-10 ity of 00:00: [place] [facility] Twitching Twitching Disease Active Uni vers 7-10 ity of 00:00: [place] [facility] Asthma, Asthma, Disease Active Univers mild mild 5-23 ity of persistent persistent 00:00: [place] [facility] Fatty Fatty Disease Active Univers liver liver 3-24 ity of 00:00: [place] [facility] Hepatomega Hepatomega Disease Active U nivers ly ly 3-24 ity of 00:00: [place] [facility] Obesity Obesity Disease Active Univers (BMI (BMI 2-12 ity of 30-39.9) 30-39.9) 00:00: [place] [facility] Sinus Sinus Disease Active Univers tachycardi tachycardi 1-02 it y of a a 00:00: [place] [facility] Dyslipidem Dyslipidem Disease Active 2015-09 U nivers ia ia 1-22 ity of 00:00: [place] [facility] Vitamin Vitamin Disease Active 2015-09 Univers B12 B12 1-10 ity of deficiency deficiency 00:00: [place] [facility] 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 6-09 ity of 00:00: [place] [facility] Abnormal Abnormal Disease Active Unive rs uterine uterine 5-23 ity of bleeding bleeding 00:00: [place] [facility] Submucous Submucous Disease Active Uni vers leiomyoma leiomyoma 5-23 ity of of uterus of [place] 00:[place] [facility] [place] Encounter Encounter Disease Active Uni vers for blood for blood 2-16 ity of transfusio transfusio 00:[place]: [place] 00 Medical Branch History of History of Disease Active U nivers tubal tubal 2-05 ity of ligation ligation 00:00: [place] [facility] 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 00:00[place] disorder, disorder, 00 Medi cipriano in in Branch remission remission Hypothyroi Hypothyroi Disease Active U nivers d d 2-05 ity of 00:00: [place] 00 Medical Branch Essential Essential Disease Active Uni [...] U nivers neuropathy neuropathy it y of [facility] 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 ity of [facility] PCOS PCOS Disease Active Univers (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 But pt still eats it. TOMATO DRUG Active Low Other-Cmnt Univer s INGREDI 7-09 ity of 00:00: [place] 00 Medical Branch Codeine Propensi Active Itching Univer s ty to 1-17 ity of adverse 00:00: [place] reaction Medical s Branch CODEINE DRUG Active Low [...] 00 Medical Branch Amoxicil Propensi Active Hives 2015-0 Univer s franca ty to 9-04 ity of adverse 00:00: [place] reaction 00 Medical s Branch Meperidi Propensi Active Hallucinatio 2015-0 Univers ne Hcl ty to ns 9-04 ity of adverse 00:00: [place] reaction 00 Medical s Branch Ziprasid Propensi Active Hives 2015-0 Univer s one Hcl ty to 9-04 ity of adverse 00:00: [place] reaction 00 Medical s Branch MEPERIDI DRUG Active High Hallucinates 2015-0 Un jerrod NE HCL INGREDI 9-04 ity of 00:00: [place] 00 Medical Branch ZIPRASID DRUG Active High Hives 2015-0 Univers ONE HCL INGREDI 9-04 ity of 00:00: [place] 00 Medical Branch AMOXICIL DRUG Active Med Hives 2014-0 Univers FRANCA INGREDI 9-04 ity of 00:00: [place] 00 Medical [place] Social History Social Habit Start Date Stop Date Quantity Comments Source Exposure to 2022-06-07 2022-06-[address] [facility] SARS-CoV-2 (event) 00:00:00 09:36:00 [facility] Tobacco Comment 2022-06-17 2022-06-17 10 years ago Univers ity of 00:00:00 00:00:00 [facility] Cigarettes smoked 2022-06-17 2022-06-17 Univers ity of current (pack per 00:00:00 00:00:00 ) - Reported Branch Cigarette 2022-06-17 2022-06-17 University of pack-years 00:00:00 00:00:00 [facility] Tobacco use and 2022-06-17 2022-06-17 Smokeless Universit y of exposure 00:00:00 00:00:00 tobacco non-user [facility] Alcohol intake 2022-06-17 2022-06-17 0 /d University of 00:00:00 00:00:00 [facility] History of tobacco 1982-10-20 2007-10-20 Cigarette Smoker University of use 00:00:00 00:00:00 [facility] Sex [birth year] At [birth year] Universit y of 00:00:00 00:00:00 [facility] Smoking Status Start Date Stop Date Source Ex-smoker 2022-06-17 00:00:00 2022-06-17 00:00:00 [facility] [place] Medications Ordered Filled Start Stop Current Ordering Indication Dosage Frequency Signature Comments Components Source Medication Medication Date Date Medication? Clinician (SIG) Name Name busPIRone 2021-09 Yes [id number] 20mg Take 2 Un jerrod 10 mg 0-13 tablets by ity of tablet 00:00: mouth in [place] 00 the Medical morning Branch and 2 tablets in the evening. diltiazem 2021-09 Yes [id number] 120mg Take 1 U nivers 120 mg 24 0-13 capsule by ity of hr capsule 00:00: mouth in [facility] 00 the Medical morning Branch and 1 capsule in the evening. levothyroxi 2021-09 Yes [id number] 50ug Take 1 Univers ne 50 mcg 0-13 tablet by ity o f tablet 00:00: mouth [place] 00 every Medical morning. Branch losartan 50 2021-09 Yes [id number] 50mg Take 1 Univers mg tablet 0-13 tablet by ity o f 00:00: mouth in [place] 00 the Medical morning Branch and 1 tablet in the evening. metformin 2021-09 Yes [id number] 500mg Take 1 U nivers ER 500 mg 0-13 tablet by ity o f 24 hr 00:00: mouth [place] tablet 00 daily with Medical breakfast. Branch STOP REGULAR METFORMIN. mirabegron 2021-09 Yes [id number] 50mg Take 1 Univers (MYRBETRIQ) 0-13 tablet by ity of 50 mg 00:00: mouth in [place] tablet 00 the Medical morning. Branch semaglutide 2021-09 Yes [id number] Inject Univers (OZEMPIC) 0-13 0.25 mg ity of 0.25 mg or 00:00: [place] 0.5 mg(2 00 skin Medical mg/1.5 mL) weekly. Branch PnIj pantoprazol 2021-09 Yes [id number] 40mg Take 1 Univers e 40 mg EC 0-13 tablet by ity of tablet 00:00: mouth in [place] 00 the Medical morning. Branch pregabalin 2021-09 Yes [id number] 150mg Take 1 Univers 150 mg 0-13 capsule by ity of capsule 00:00: mouth in [place] 00 the Medical morning Branch and 1 capsule at noon and 1 capsule in the evening. rosuvastati 2021-09 Yes [id number] 10mg Take 1 Univers n 10 mg 0-13 tablet by ity of tablet 00:00: mouth at [place] 00 bedtime. Medical Branch SUMAtriptan 2021-09 Yes [id number] 50mg Take 1 Univers 50 mg 0-13 tablet by ity of tablet 00:00: mouth as [place] 00 needed for Medical Migraine. Branch topiramate 2021-09 Yes [id number] 75mg Take 3 Univers 25 mg 0-13 tablets by ity of tablet 00:00: mouth in [place] 00 the Medical morning Branch and 3 tablets in the evening. SUMAtriptan Yes [id number] 50mg Take 1 Univers 50 mg 9-30 tablet by ity of tablet 00:00: mouth as [place] 00 needed for Medical Migraine. Branch SUMAtriptan Yes [id number] 50mg Take 1 Univers 50 mg 9-30 tablet by ity of tablet 00:00: mouth as [place] 00 needed for Medical Migraine. Branch SUMAtriptan Yes [id number] 50mg Take 1 Univers 50 mg 9-30 tablet by ity of tablet 00:00: mouth as [place] 00 needed for Medical Migraine. Branch SUMAtriptan Yes [id number] 50mg Take 1 Univers 50 mg 9-30 tablet by ity of tablet 00:00: mouth as [place] 00 needed for Medical Migraine. Branch SUMAtriptan Yes [id number] 50mg Take 1 Univers 50 mg 9-30 tablet by ity of tablet 00:00: mouth as [place] 00 needed for Medical Migraine. Branch SUMAtriptan 2021- No [id number] 50mg Take 1 Univers 50 mg 9-30 10-13 tablet by ity of tablet 00:00: 00:00 mouth as [place] 00 :00 needed for Medical Migraine. Branch cholecalcif Yes 1000U Take 1,000 Univers edmar, 9-22 Units by ity of vitamin D3, 10:41: mouth [place] 25 mcg 15 daily. Medical (1,000 Branch unit) tablet CRANBERRY Yes Take by [employer] FRUIT 06-17 mouth ity of EXTRACT 10:41: daily. [place] (CRANBERRY 15 Medical ORAL) Branch CALCIUM Yes Take by Univers ORAL 06-17 mouth ity of 10:41: daily. 15 Medical Branch DOCOSAHEXAN Yes 1000mg Take 1,000 Univers OIC 9-22 mg by ity of ACID/EPA 10:41: mouth [place] (FISH OIL 15 daily. Medical ORAL) Branch BIOTIN ORAL Yes Take by Uni vers 06-17 mouth. ity of 10:41: [place] 15 Medical Branch FOLIC ACID Yes Take by Univ ers ORAL 06-17 mouth ity of 10:41: daily. 15 Medical Branch MULTIVIT Yes Take by [employer] &MINERALS/F 06-17 mouth. ity of ERROUS FUM 10:41: [place] (MULTI 15 Medical VITAMIN Branch ORAL) METHYLCELLU Yes Univer s LOSE (FIBER 06-17 ity of THERAPY 10:41: [place] MISC) 15 Medical Branch DOCUSATE Yes Take by Univer s SODIUM - mouth. ity of (COLACE 10:41: [place] ORAL) 15 Medical Branch vitamin C Yes 1000mg Take 1,000 Univers with derrell 9-22 mg by ity of hips 1,000 10:41: mouth [place] mg tablet 15 daily. Medical Branch cholecalcif Yes 1000U Take 1,000 Univers edmar, 9-22 Units by ity of vitamin D3, 10:41: mouth [place] 25 mcg 15 daily. Medical (1,000 Branch unit) tablet CRANBERRY Yes Take by [employer] FRUIT - mouth ity of EXTRACT 10:41: daily. [place] (CRANBERRY 15 Medical ORAL) Branch CALCIUM Yes Take by Univers ORAL 9-22 mouth ity of 10:41: daily. [place] [address] Medical Branch DOCOSAHEXAN Yes 1000mg Take 1,000 Univers OIC 9-22 mg by ity of ACID/EPA 10:41: mouth [place] (FISH OIL 15 daily. Medical ORAL) Branch BIOTIN ORAL Yes Take by Uni vers - mouth. ity of 10:41: [place] [address] Medical Branch FOLIC ACID Yes Take by Univ ers ORAL - mouth ity of 10:41: daily. [place] [address] Medical Branch MULTIVIT Yes Take by Univer s &MINERALS/F 06-17 mouth. ity of ERROUS FUM 10:41: [place] (MULTI 15 Medical VITAMIN Branch ORAL) METHYLCELLU Yes Univer s LOSE (FIBER 06-17 ity of THERAPY 10:41: [place] MIS) Medical Branch DOCUSATE Yes Take by Univer s SODIUM 06-17 mouth. ity of (COLACE 10:41: [place] ORAL) Medical Branch vitamin C Yes 1000mg Take 1,000 Univers with derrell 9-22 mg by ity of hips 1,000 10:41: mouth [place] mg tablet 15 daily. Medical Branch cholecalcif Yes 1000U Take 1,000 Univers edmar, 9-22 Units by ity of vitamin D3, 10:41: mouth [place] 25 mcg 15 daily. Medical (1,000 Branch unit) tablet CRANBERRY [facility]17 mouth ity of EXTRACT 10:41: daily. [place] (CRANBERRY 15 Medical ORAL) Branch CALCIUM Yes Take by Univers ORAL -22 mouth ity of 10:41: daily. [place] [address] Medical Branch DOCOSAHEXAN Yes 1000mg Take 1,000 Univers OIC 9-22 mg by ity of ACID/EPA 10:41: mouth [place] (FISH OIL 15 daily. Medical ORAL) Branch BIOTIN ORAL Yes Take by Uni vers -22 mouth. ity of 10:41: [place] [address] Medical Branch FOLIC ACID Yes Take by Univ ers ORAL - mouth ity of 10:41: daily. [place] [address] Medical Branch MULTIVIT Yes Take by Univer s &MINERALS/F 9-22 mouth. ity of ERROUS FUM 10:41: [place] (MULTI 15 Medical VITAMIN Branch ORAL) METHYLCELLU 0 Yes Univer s LOSE (FIBER 9-22 ity of THERAPY 10:41: [facility]) Medical Branch DOCUSATE 0 Yes Take by Univer s SODIUM 9-22 mouth. ity of (COLACE 10:41: [place] ORAL) 15 Medical Branch vitamin C Yes 1000mg Take 1,000 Univers with derrell 9-22 mg by ity of hips 1,000 10:41: mouth [place] mg tablet 15 daily. Medical Branch cholecalcif Yes 1000U Take 1,000 Univers edmar, 9-22 Units by ity of vitamin D3, 10:41: mouth [place] 25 mcg 15 daily. Medical (1,000 Branch unit) tablet CRANBERRY Yes Take by [facility] rs FRUIT - mouth ity of EXTRACT 10:41: daily. [place] (CRANBERRY 15 Medical ORAL) Branch CALCIUM Yes Take by Univers ORAL -22 mouth ity of 10:41: daily. [place] [address] Medical Branch DOCOSAHEXAN Yes 1000mg Take 1,000 Univers OIC 9-22 mg by ity of ACID/EPA 10:41: mouth [place] (FISH OIL 15 daily. Medical ORAL) Branch BIOTIN ORAL Yes Take by Uni vers 9- mouth. ity of 10:41: [place] [address] Medical Branch FOLIC ACID Yes Take by Univ ers ORAL 9-22 mouth ity of 10:41: daily. [place] [address] Medical Branch MULTIVIT Yes Take by Univer s &MINERALS/F 9-22 mouth. ity of ERROUS FUM 10:41: [place] (MULTI 15 Medical VITAMIN Branch ORAL) METHYLCELLU 0 Yes Univer s LOSE (FIBER 9-22 ity of THERAPY 10:41: [facility]) Medical Branch DOCUSATE 0 Yes [facility] SODI[facility] 9-22 mouth. ity of (COLACE 10:41: [place] ORAL) 15 Medical Branch vitamin C Yes 1000mg Take 1,000 Univers with derrell 9-22 mg by ity of hips 1,000 10:41: mouth [place] mg tablet 15 daily. Medical Branch cholecalcif Yes 1000U Take 1,000 Univers edmar, 9-22 Units by ity of vitamin D3, 10:41: mouth [place] 25 mcg 15 daily. Medical (1,000 Branch unit) tablet CRANBERRY Yes Take by Unive rs FRUIT - mouth ity of EXTRACT 10:41: daily. [place] (CRANBERRY 15 Medical ORAL) Branch CALCIUM Yes Take by Univers ORAL - mouth ity of 10:41: daily. [place] 15 Medical Branch DOCOSAHEXAN Yes 1000mg Take 1,000 Univers OIC 9-22 mg by ity of ACID/EPA 10:41: mouth [place] (FISH OIL 15 daily. Medical ORAL) Branch BIOTIN ORAL Yes Take by Uni vers 06-17 mouth. ity of 10:41: [place] [address] Medical Branch FOLIC ACID Yes Take by Univ ers ORAL 06-17 mouth ity of 10:41: daily. [place] [address] Medical Branch MULTIVIT Yes Take by Univer s &MINERALS/F - mouth. ity of ERROUS FUM 10:41: [place] (MULTI 15 Medical VITAMIN Branch ORAL) METHYLCELLU Yes Univer s LOSE (FIBER 06-17 ity of THERAPY 10:41: [facility]) Medical Branch DOCUSATE Yes Take by Univer s SODIUM - mouth. ity of (COLACE 10:41: [place] ORAL) 15 Medical Branch vitamin C Yes 1000mg Take 1,000 Univers with derrell 9-22 mg by ity of hips 1,000 10:41: mouth [place] mg tablet 15 daily. Medical Branch cholecalcif Yes 1000U Take 1,000 Univers edmar, 9-22 Units by ity of vitamin D3, 10:41: mouth [place] 25 mcg 15 daily. Medical (1,000 Branch unit) tablet CRANBERRY Yes Take by Unive rs FRUIT -22 mouth ity of EXTRACT 10:41: daily. [place] (CRANBERRY 15 Medical ORAL) Branch CALCIUM Yes Take by Univers ORAL -22 mouth ity of 10:41: daily. [place] 15 Medical Branch DOCOSAHEXAN Yes 1000mg Take 1,000 Univers OIC 9-22 mg by ity of ACID/EPA 10:41: mouth [place] (FISH OIL 15 daily. Medical ORAL) Branch BIOTIN ORAL Yes Take by Uni vers 9-22 mouth. ity of 10:41: [place] 15 Medical Branch FOLIC ACID Yes Take by Univ ers ORAL - mouth ity of 10:41: daily. [place] 15 Medical Branch MULTIVIT Yes Take by Univer s &MINERALS/F - mouth. ity of ERROUS FUM 10:41: [place] (MULTI 15 Medical VITAMIN Branch ORAL) METHYLCELLU Yes Univer s LOSE (FIBER - ity of THERAPY 10:41: [place] MISC) 15 Medical Branch DOCUSATE Yes Take by Univer s SODIUM - mouth. ity of (COLACE 10:41: [place] ORAL) 15 Medical Branch vitamin C Yes 1000mg Take 1,000 Univers with derrell 9-22 mg by ity of hips 1,000 10:41: mouth [place] mg tablet 15 daily. Medical Branch cholecalcif Yes 1000U Take 1,000 Univers edmar, 9-22 Units by ity of vitamin D3, 10:41: mouth [place] 25 mcg 15 daily. Medical (1,000 Branch unit) tablet CRANBERRY Yes Take by Unive rs FRUIT - mouth ity of EXTRACT 10:41: daily. [place] (CRANBERRY 15 Medical ORAL) Branch CALCIUM Yes Take by Univers ORAL 9-22 mouth ity of 10:41: daily. [place] 15 Medical Branch DOCOSAHEXAN Yes 1000mg Take 1,000 Univers OIC 9-22 mg by ity of ACID/EPA 10:41: mouth [place] (FISH OIL 15 daily. Medical ORAL) Branch BIOTIN ORAL Yes Take by Uni vers 9-22 mouth. ity of 10:41: [place] [address] Medical Branch FOLIC ACID Yes Take by Univ ers ORAL 9-22 mouth ity of 10:41: daily. [place] [address] Medical Branch MULTIVIT Yes Take by Univer s &MINERALS/F -22 mouth. ity of ERROUS FUM 10:41: [place] (MULTI 15 Medical VITAMIN Branch ORAL) METHYLCELLU 0 Yes Univer s LOSE (FIBER 9-22 ity of THERAPY 10:41: [facility]) 15 Medical Branch DOCUSATE Yes Take by Univer s SODIUM -22 mouth. ity of (COLACE 10:41: [place] ORAL) 15 Medical Branch vitamin C Yes 1000mg Take 1,000 Univers with derrell 9-22 mg by ity of hips 1,000 10:41: mouth [place] mg tablet 15 daily. Medical Branch cholecalcif Yes 1000U Take 1,000 Univers edmar, 9-22 Units by ity of vitamin D3, 10:41: mouth [place] 25 mcg 15 daily. Medical (1,000 Branch unit) tablet CRANBERRY Yes Take by [facility] rs FRUIT 06-17 mouth ity of EXTRACT 10:41: daily. [place] (CRANBERRY 15 Medical ORAL) Branch CALCIUM Yes Take by Univers ORAL 06-17 mouth ity of 10:41: daily. [place] 15 Medical Branch DOCOSAHEXAN Yes 1000mg Take 1,000 Univers OIC 9-22 mg by ity of ACID/EPA 10:41: mouth [place] (FISH OIL 15 daily. Medical ORAL) Branch BIOTIN ORAL Yes Take by Uni vers 06-17 mouth. ity of 10:41: [place] 15 Medical Branch FOLIC ACID Yes Take by Univ ers ORAL - mouth ity of 10:41: daily. [place] 15 Medical Branch MULTIVIT Yes [facility] &MINERALS/F - mouth. ity of ERROUS FUM 10:41: [place] (MULTI 15 Medical VITAMIN Branch ORAL) METHYLCELLU Yes Univer s LOSE (FIBER 9-22 ity of THERAPY 10:41: [facility]) 15 Medical Branch DOCUSATE Yes Take by [facility] SODIUM -22 mouth. ity of (COLACE 10:41: [place] ORAL) 15 Medical Branch vitamin C Yes 1000mg Take 1,000 Univers with derrell 9-22 mg by ity of hips 1,000 10:41: mouth [place] mg tablet 15 daily. Medical Branch cholecalcif Yes 1000U Take 1,000 Univers edmar, 9-22 Units by ity of vitamin D3, 10:41: mouth [place] 25 mcg 15 daily. Medical (1,000 Branch unit) tablet CRANBERRY Yes Take by Unive rs FRUIT - mouth ity of EXTRACT 10:41: daily. [place] (CRANBERRY 15 Medical ORAL) Branch CALCIUM Yes Take by Univers ORAL - mouth ity of 10:41: daily. [place] 15 Medical Branch DOCOSAHEXAN Yes 1000mg Take 1,000 Univers OIC 9-22 mg by ity of ACID/EPA 10:41: mouth [place] (FISH OIL 15 daily. Medical ORAL) Branch BIOTIN ORAL Yes Take by Uni vers 06-17 mouth. ity of 10:41: [place] [address] Medical Branch FOLIC ACID Yes Take by Univ ers ORAL - mouth ity of 10:41: daily. [place] [address] Medical Branch MULTIVIT Yes Take by Univer s &MINERALS/F 06-17 mouth. ity of ERROUS FUM 10:41: [place] (MULTI 15 Medical VITAMIN Branch ORAL) METHYLCELLU Yes Univer s LOSE (FIBER 06-17 ity of THERAPY 10:41: [place] MIS) Medical Branch DOCUSATE Yes Take by Univer s SODIUM - mouth. ity of (COLACE 10:41: [place] ORAL) 15 Medical Branch vitamin C Yes 1000mg Take 1,000 Univers with derrell 9-22 mg by ity of hips 1,000 10:41: mouth [place] mg tablet 15 daily. Medical Branch cholecalcif Yes 1000U Take 1,000 Univers edmar, 9-22 Units by ity of vitamin D3, 10:41: mouth [place] 25 mcg 15 daily. Medical (1,000 Branch unit) tablet CRANBERRY Yes Take by Unive rs FRUIT - mouth ity of EXTRACT 10:41: daily. [place] (CRANBERRY 15 Medical ORAL) Branch CALCIUM Yes Take by [facility] ORAL - mouth ity of 10:41: daily. [place] 15 Medical Branch DOCOSAHEXAN Yes 1000mg Take 1,000 [facility] OIC 9-22 mg by ity of ACID/EPA 10:41: mouth [place] (FISH OIL 15 daily. Medical ORAL) Branch BIOTIN ORAL Yes Take by Uni vers -22 mouth. ity of 10:41: [place] [address] Medical Branch FOLIC ACID Yes Take by Univ ers ORAL 9- mouth ity of 10:41: daily. [place] 15 Medical Branch MULTIVIT Yes Take by Univer s &MINERALS/F - mouth. ity of ERROUS FUM 10:41: [place] (MULTI 15 Medical VITAMIN Branch ORAL) METHYLCELLU Yes Univer s LOSE (FIBER 9- ity of THERAPY 10:41: [place] MIS) 15 Medical Branch DOCUSATE Yes Take by Univer s SODIUM 9-22 mouth. ity of (COLACE 10:41: [place] ORAL) 15 Medical Branch vitamin C Yes 1000mg Take 1,000 [facility] with derrell 9-22 mg by ity of hips 1,000 10:41: mouth [place] mg tablet 15 daily. Medical Branch cholecalcif Yes 1000U Take 1,000 [facility] edmar, 9-22 Units by ity of vitamin D3, 10:41: mouth [place] 25 mcg 15 daily. Medical (1,000 Branch unit) tablet CRANBERRY Yes Take by Unive rs FRUIT - mouth ity of EXTRACT 10:41: daily. [place] (CRANBERRY 15 Medical ORAL) Branch CALCIUM Yes Take by [facility] ORAL - mouth ity of 10:41: daily. [place] 15 Medical Branch DOCOSAHEXAN Yes 1000mg Take 1,000 [facility] OIC 9-22 mg by ity of ACID/EPA 10:41: mouth [place] (FISH OIL 15 daily. Medical ORAL) Branch BIOTIN ORAL Yes Take by Uni vers - mouth. ity of 10:41: [place] [address] Medical Branch FOLIC ACID Yes Take by Univ ers ORAL 9-22 mouth ity of 10:41: daily. [place] 15 Medical Branch MULTIVIT Yes Take by Univer s &MINERALS/F 9-22 mouth. ity of ERROUS FUM 10:41: [place] (MULTI 15 Medical VITAMIN Branch ORAL) METHYLCELLU Yes Univer s LOSE (FIBER 9-22 ity of THERAPY 10:41: [place] MIS) Medical Branch DOCUSATE Yes Take by Univer s SODIUM 9-22 mouth. ity of (COLACE 10:41: [place] ORAL) 15 Medical Branch vitamin C Yes 1000mg Take 1,000 [facility] with derrell 9-22 mg by ity of hips 1,000 10:41: mouth [place] mg tablet 15 daily. Medical Branch cholecalcif Yes 1000U Take 1,000 [facility] edmar, 9-22 Units by ity of vitamin D3, 10:41: mouth [place] 25 mcg 15 daily. Medical (1,000 Branch unit) tablet CRANBERRY Yes Take by Unive rs FRUIT - mouth ity of EXTRACT 10:41: daily. [place] (CRANBERRY 15 Medical ORAL) Branch CALCIUM Yes Take by [facility] ORAL 06-17 mouth ity of 10:41: daily. [place] 15 Medical Branch DOCOSAHEXAN Yes 1000mg Take 1,000 [facility] OIC 9-22 mg by ity of ACID/EPA 10:41: mouth [place] (FISH OIL 15 daily. Medical ORAL) Branch BIOTIN ORAL Yes Take by Uni vers 06-17 mouth. ity of 10:41: [place] [address] Medical Branch FOLIC ACID Yes Take by Univ ers ORAL 06-17 mouth ity of 10:41: daily. [place] 15 Medical Branch MULTIVIT Yes Take by Univer s &MINERALS/F 06-17 mouth. ity of ERROUS FUM 10:41: [place] (MULTI 15 Medical VITAMIN Branch ORAL) METHYLCELLU Yes Univer s LOSE (FIBER - ity of THERAPY 10:41: [facility]) 15 Medical Branch DOCUSATE Yes Take by Univer s SODIUM 06-17 mouth. ity of (COLACE 10:41: [place] ORAL) 15 Medical Branch vitamin C Yes 1000mg Take 1,000 [facility] with derrell 9-22 mg by ity of hips 1,000 10:41: mouth [place] mg tablet 15 daily. Medical Branch cholecalcif Yes 1000U Take 1,000 [facility] edmar, 9-22 Units by ity of vitamin D3, 10:41: mouth [place] 25 mcg 15 daily. Medical (1,000 Branch unit) tablet CRANBERRY Yes Take by Unive rs FRUIT - mouth ity of EXTRACT 10:41: daily. [place] (CRANBERRY 15 Medical ORAL) Branch CALCIUM Yes Take by [facility] ORAL 06-17 mouth ity of 10:41: daily. [place] 15 Medical Branch DOCOSAHEXAN Yes 1000mg Take 1,000 [facility] OIC 9-22 mg by ity of ACID/EPA 10:41: mouth [place] (FISH OIL 15 daily. Medical ORAL) Branch BIOTIN ORAL Yes Take by Uni vers 06-17 mouth. ity of 10:41: [place] 15 Medical Branch FOLIC ACID Yes Take by Univ ers ORAL 06-17 mouth ity of 10:41: daily. [place] 15 Medical Branch MULTIVIT Yes Take by Univer s &MINERALS/F 06-17 mouth. ity of ERROUS FUM 10:41: [place] (MULTI 15 Medical VITAMIN Branch ORAL) METHYLCELLU Yes Univer s LOSE (FIBER 06-17 ity of THERAPY 10:41: [place] MISC) 15 Medical Branch DOCUSATE Yes Take by Univer s SODIUM 06-17 mouth. ity of (COLACE 10:41: [place] ORAL) 15 Medical Branch vitamin C Yes 1000mg Take 1,000 [facility] with derrell 9-22 mg by ity of hips 1,000 10:41: mouth [place] mg tablet 15 daily. Medical Branch SUMAtriptan Yes [id number] 50mg Take 1 [facility] 50 mg 9-22 tablet by ity of tablet 00:00: mouth as [place] 00 needed for Medical Migraine. Branch topiramate Yes [id number] 75mg Take 3 [facility] 25 mg 9-22 tablets by ity of tablet 00:00: mouth in [place] 00 the Medical morning Branch and 3 tablets in the evening. SUMAtriptan Yes [id number] 50mg Take 1 [facility] 50 mg 9-22 tablet by ity of tablet 00:00: mouth as [place] 00 needed for Medical Migraine. Branch topiramate Yes [id number] 75mg Take 3 [facility] 25 mg 9-22 tablets by ity of tablet 00:00: mouth in [place] 00 the Medical morning Branch and 3 tablets in the evening. SUMAtriptan Yes [id number] 50mg Take 1 [facility] 50 mg 9-22 tablet by ity of tablet 00:00: mouth as [place] 00 needed for Medical Migraine. Branch topiramate Yes [id number] 75mg Take 3 [facility] 25 mg 9-22 tablets by ity of tablet 00:00: mouth in [place] 00 the Medical morning Branch and 3 tablets in the evening. SUMAtriptan 2-0 Yes [id number] 50mg Take 1 [facility] 50 mg 9-22 tablet by ity of tablet 00:00: mouth as [place] 00 needed for Medical Migraine. Branch topiramate 2-0 Yes [id number] 75mg Take 3 [facility] 25 mg 9-22 tablets by ity of tablet 00:00: mouth in [place] 00 the Medical morning Branch and 3 tablets in the evening. topiramate 2-0 Yes [id number] 75mg Take 3 [facility] 25 mg 9-22 tablets by ity of tablet 00:00: mouth in [place] 00 the Medical morning Branch and 3 tablets in the evening. topiramate 2-0 Yes [id number] 75mg Take 3 [facility] 25 mg 9-22 tablets by ity of tablet 00:00: mouth in [place] [address] the Medical morning Branch and 3 tablets in the evening. topiramate 2-0 Yes [id number] 75mg Take 3 [facility] 25 mg 9-22 tablets by ity of tablet 00:00: mouth in [place] 00 the Medical morning Branch and 3 tablets in the evening. topiramate 2-0 Yes [id number] 75mg Take 3 [facility] 25 mg 9-22 tablets by ity of tablet 00:00: mouth in [place] 00 the Medical morning Branch and 3 tablets in the evening. topiramate 2-0 Yes [id number] 75mg Take 3 [facility] 25 mg 9-22 tablets by ity of tablet 00:00: mouth in [place] 00 the Medical morning Branch and 3 tablets in the evening. topiramate 2-0 Yes [id number] 75mg Take 3 [facility] 25 mg 9-22 tablets by ity of tablet 00:00: mouth in [place] 00 the Medical morning Branch and 3 tablets in the evening. topiramate 2-0 2022- No [id number] 75mg Take 3 [facility] 25 mg 9-22 10-13 tablets by ity of tablet 00:00: 00:00 mouth in [place] 00 :00 the Medical morning Branch and 3 tablets in the evening. SUMAtriptan 2022-0 2022- No [id number] 50mg Take 1 [facility] 50 mg 9-22 09-30 tablet by ity of tablet 00:00: 00:00 mouth as [place] 00 :00 needed for Medical Migraine. Branch pantoprazol 2021-0 Yes [id number] 40mg Take 1 [facility] e 40 mg EC 9-16 tablet by ity of tablet 00:00: mouth in [place] 00 the Medical morning. Branch Simethicone 2021-0 Yes [id number] 125mg Take 1 [facility] 125 mg 9-16 capsule by ity of 00:00: mouth [place] 00 after Medical meals and Branch at bedtime as needed for Gas (Per bowel prep). pantoprazol 2021-0 Yes [id number] 40mg Take 1 [facility] e 40 mg EC 9-16 tablet by ity of tablet 00:00: mouth in [place] 00 the Medical morning. Branch Simethicone 2021-0 Yes [id number] 125mg Take 1 [facility] 125 mg 9-16 capsule by ity of 00:00: mouth [place] 00 after Medical meals and Branch at bedtime as needed for Gas (Per bowel prep). pantoprazol 2021-0 Yes [id number] 40mg Take 1 [facility] e 40 mg EC 9-16 tablet by ity of tablet 00:00: mouth in [place] 00 the Medical morning. Branch Simethicone 2021-0 Yes [id number] 125mg Take 1 [facility] 125 mg 9-16 capsule by ity of 00:00: mouth [place] 00 after Medical meals and Branch at bedtime as needed for Gas (Per bowel prep). pantoprazol 2021-0 Yes [id number] 40mg Take 1 [facility] e 40 mg EC 9-16 tablet by ity of tablet 00:00: mouth in [place] 00 the Medical morning. Branch Simethicone 2021-0 Yes [id number] 125mg Take 1 [facility] 125 mg 9-16 capsule by ity of 00:00: mouth [place] 00 after Medical meals and Branch at bedtime as needed for Gas (Per bowel prep). pantoprazol 2021-0 Yes [id number] 40mg Take 1 [facility] e 40 mg EC 9-16 tablet by ity of tablet 00:00: mouth in [place] 00 the Medical morning. Branch Simethicone 2021-0 Yes [id number] 125mg Take 1 [facility] 125 mg 9-16 capsule by ity of 00:00: mouth [place] 00 after Medical meals and Branch at bedtime as needed for Gas (Per bowel prep). pantoprazol 2021-0 Yes [id number] 40mg Take 1 [facility] e 40 mg EC 9-16 tablet by ity of tablet 00:00: mouth in [place] 00 the Medical morning. Branch Simethicone 2021-0 Yes [id number] 125mg Take 1 [facility] 125 mg 9-16 capsule by ity of 00:00: mouth [place] 00 after Medical meals and Branch at bedtime as needed for Gas (Per bowel prep). pantoprazol 2021-0 Yes [id number] 40mg Take 1 [facility] e 40 mg EC 9-16 tablet by ity of tablet 00:00: mouth in [place] 00 the Medical morning. Branch Simethicone 0 Yes [id number] 125mg Take 1 [facility] 125 mg 9-16 capsule by ity of 00:00: mouth [place] 00 after Medical meals and Branch at bedtime as needed for Gas (Per bowel prep). pantoprazol 0 Yes [id number] 40mg Take 1 [facility] e 40 mg EC 9-16 tablet by ity of tablet 00:00: mouth in [place] 00 the Medical morning. Branch Simethicone 0 Yes [id number] 125mg Take 1 [facility] 125 mg 9-16 capsule by ity of 00:00: mouth [place] 00 after Medical meals and Branch at bedtime as needed for Gas (Per bowel prep). pantoprazol 2021-0 Yes [id number] 40mg Take 1 [facility] e 40 mg EC 9-16 tablet by ity of tablet 00:00: mouth in [place] 00 the Medical morning. Branch Simethicone 2021-0 Yes [id number] 125mg Take 1 [facility] 125 mg 9-16 capsule by ity of 00:00: mouth [place] 00 after Medical meals and Branch at bedtime as needed for Gas (Per bowel prep). pantoprazol 2021-0 Yes [id number] 40mg Take 1 [facility] e 40 mg EC 9-16 tablet by ity of tablet 00:00: mouth in [place] 00 the Medical morning. Branch Simethicone 2021-0 Yes [id number] 125mg Take 1 [facility] 125 mg 9-16 capsule by ity of 00:00: mouth [place] 00 after Medical meals and Branch at bedtime as needed for Gas (Per bowel prep). pantoprazol 2021-0 Yes [id number] 40mg Take 1 [facility] e 40 mg EC 9-16 tablet by ity of tablet 00:00: mouth in [place] 00 the Medical morning. Branch Simethicone 0 Yes [id number] 125mg Take 1 [facility] 125 mg 9-16 capsule by ity of 00:00: mouth [place] 00 after Medical meals and Branch at bedtime as needed for Gas (Per bowel prep). pantoprazol 0 Yes [id number] 40mg Take 1 [facility] e 40 mg EC 9-16 tablet by ity of tablet 00:00: mouth in [place] 00 the Medical morning. Branch Simethicone 0 Yes [id number] 125mg Take 1 [facility] 125 mg 9-16 capsule by ity of 00:00: mouth [place] 00 after Medical meals and Branch at bedtime as needed for Gas (Per bowel prep). pantoprazol 0 Yes [id number] 40mg Take 1 [facility] e 40 mg EC 9-16 tablet by ity of tablet 00:00: mouth in [place] 00 the Medical morning. Branch Simethicone 0 Yes [id number] 125mg Take 1 [facility] 125 mg 9-16 capsule by ity of 00:00: mouth [place] 00 after Medical meals and Branch at bedtime as needed for Gas (Per bowel prep). pantoprazol 0 Yes [id number] 40mg Take 1 [facility] e 40 mg EC 9-16 tablet by ity of tablet 00:00: mouth in [place] 00 the Medical morning. Branch Simethicone 0 Yes [id number] 125mg Take 1 [facility] 125 mg 9-16 capsule by ity of 00:00: mouth [place] 00 after Medical meals and Branch at bedtime as needed for Gas (Per bowel prep). pantoprazol 2021-0 Yes [id number] 40mg Take 1 [facility] e 40 mg EC 9-16 tablet by ity of tablet 00:00: mouth in [place] 00 the Medical morning. Branch Simethicone 0 Yes [id number] 125mg Take 1 [facility] 125 mg 9-16 capsule by ity of 00:00: mouth [place] 00 after Medical meals and Branch at bedtime as needed for Gas (Per bowel prep). Simethicone 0 Yes [id number] 125mg Take 1 [facility] 125 mg 9-16 capsule by ity of 00:00: mouth [place] 00 after Medical meals and Branch at bedtime as needed for Gas (Per bowel prep). pantoprazol 2022-0 2022- No [id number] 40mg Take 1 [facility] e 40 mg EC 9-16 10-13 tablet by ity of tablet 00:00: 00:00 mouth in [place] 00 :00 the Medical morning. Branch SUMAtriptan 2021-0 Yes [id number] TAKE 1 [facility] 50 mg 9-06 TABLET BY ity of tablet 00:00: MOUTH [place] 00 NEEDED FOR Medical MIGRAINE Branch HEADACHE ( MAY REPEAT IN 2 HOURS ) SUMAtriptan 2021-0 Yes [id number] TAKE 1 [facility] 50 mg 9-06 TABLET BY ity of tablet 00:00: MOUTH [place] 00 NEEDED FOR Medical MIGRAINE Branch HEADACHE ( MAY REPEAT IN 2 HOURS ) SUMAtriptan 2021-0 Yes [id number] TAKE 1 [facility] 50 mg 9-06 TABLET BY ity of tablet 00:00: MOUTH [place] 00 NEEDED FOR Medical MIGRAINE Branch HEADACHE ( MAY REPEAT IN 2 HOURS ) SUMAtriptan 2021-0 Yes [id number] TAKE 1 [facility] 50 mg 9-06 TABLET BY ity of tablet 00:00: MOUTH [place] 00 NEEDED FOR Medical MIGRAINE Branch HEADACHE ( MAY REPEAT IN 2 HOURS ) SUMAtriptan 2021-0 Yes [id number] TAKE 1 [facility] 50 mg 9-06 TABLET BY ity of tablet 00:00: MOUTH [place] 00 NEEDED FOR Medical MIGRAINE Branch HEADACHE ( MAY REPEAT IN 2 HOURS ) SUMAtriptan 2021-0 Yes [id number] TAKE 1 [facility] 50 mg 9-06 TABLET BY ity of tablet 00:00: MOUTH [place] 00 NEEDED FOR Medical MIGRAINE Branch HEADACHE ( MAY REPEAT IN 2 HOURS ) SUMAtriptan 2021-0 Yes [id number] TAKE 1 [facility] 50 mg 9-06 TABLET BY ity of tablet 00:00: MOUTH [place] 00 NEEDED FOR Medical MIGRAINE Branch HEADACHE ( MAY REPEAT IN 2 HOURS ) SUMAtriptan 2021-0 Yes [id number] TAKE 1 [facility] 50 mg 9-06 TABLET BY ity of tablet 00:00: MOUTH [place] 00 NEEDED FOR Medical MIGRAINE Branch HEADACHE ( MAY REPEAT IN 2 HOURS ) SUMAtriptan 2021-0 Yes [id number] TAKE 1 [facility] 50 mg 9-06 TABLET BY ity of tablet 00:00: MOUTH [place] 00 NEEDED FOR Medical MIGRAINE Branch HEADACHE ( MAY REPEAT IN 2 HOURS ) SUMAtriptan 2021-0 Yes [id number] TAKE 1 [facility] 50 mg 9-06 TABLET BY ity of tablet 00:00: MOUTH [place] 00 NEEDED FOR Medical MIGRAINE Branch HEADACHE ( MAY REPEAT IN 2 HOURS ) SUMAtriptan 2021-0 Yes [id number] TAKE 1 [facility] 50 mg 9-06 TABLET BY ity of tablet 00:00: MOUTH [place] 00 NEEDED FOR Medical MIGRAINE Branch HEADACHE ( MAY REPEAT IN 2 HOURS ) SUMAtriptan 2021-0 Yes [id number] TAKE 1 [facility] 50 mg 9-06 TABLET BY ity of tablet 00:00: MOUTH [place] 00 NEEDED FOR Medical MIGRAINE Branch HEADACHE ( MAY REPEAT IN 2 HOURS ) SUMAtriptan 2021-0 2021- No [id number] TAKE 1 [facility] 50 mg 9-06 09-22 TABLET BY ity of tablet 00:00: 00:00 MOUTH [place] 00 :00 NEEDED FOR Medical MIGRAINE Branch HEADACHE ( MAY REPEAT IN 2 HOURS ) SUMAtriptan 2021-0 2021- No [id number] TAKE 1 [facility] 50 mg 9-06 09-22 TABLET BY ity of tablet 00:00: 00:00 MOUTH [place] 00 :00 NEEDED FOR Medical MIGRAINE Branch HEADACHE ( MAY REPEAT IN 2 HOURS ) SUMAtriptan 2021-0 2021- No [id number] TAKE 1 [facility] 50 mg 9-06 09-22 TABLET BY ity of tablet 00:00: 00:00 MOUTH [place] 00 :00 NEEDED FOR Medical MIGRAINE Branch HEADACHE ( MAY REPEAT IN 2 HOURS ) topiramate 2-0 Yes [id number] Take 2 [facility] 25 mg 9-01 tablets by ity of tablet 00:00: mouth [place] 00 twice Medical daily Branch topiramate 2022-0 Yes [id number] Take 2 [facility] 25 mg 9-01 tablets by ity of tablet 00:00: mouth [place] 00 twice Medical daily Branch topiramate 2022-0 Yes [id number] Take 2 [facility] 25 mg 9-01 tablets by ity of tablet 00:00: mouth [place] 00 twice Medical daily Branch topiramate 2022-0 Yes [id number] Take 2 [facility] 25 mg 9-01 tablets by ity of tablet 00:00: mouth [place] 00 twice Medical daily Branch topiramate 2022-0 Yes [id number] Take 2 [facility] 25 mg 9-01 tablets by ity of tablet 00:00: mouth [place] 00 twice Medical daily Branch topiramate 2022-0 Yes [id number] Take 2 [facility] 25 mg 9-01 tablets by ity of tablet 00:00: mouth [place] 00 twice Medical daily Branch topiramate 2022-0 Yes [id number] Take 2 [facility] 25 mg 9-01 tablets by ity of tablet 00:00: mouth [place] 00 twice Medical daily Branch topiramate 2022-0 Yes [id number] Take 2 [facility] 25 mg 9-01 tablets by ity of tablet 00:00: mouth [place] 00 twice Medical daily Branch topiramate 2022-0 Yes [id number] Take 2 [facility] 25 mg 9-01 tablets by ity of tablet 00:00: mouth [place] 00 twice Medical daily Branch topiramate 2022-0 Yes [id number] Take 2 [facility] 25 mg 9-01 tablets by ity of tablet 00:00: mouth [place] 00 twice Medical daily Branch topiramate 2022-0 Yes [id number] Take 2 [facility] 25 mg 9-01 tablets by ity of tablet 00:00: mouth [place] 00 twice Medical daily Branch topiramate 2022-0 Yes [id number] Take 2 [facility] 25 mg 9-01 tablets by ity of tablet 00:00: mouth [place] 00 twice Medical daily Branch topiramate 2022-0 Yes [id number] Take 2 [facility] 25 mg 9-01 tablets by ity of tablet 00:00: mouth [place] 00 twice Medical daily Branch topiramate 2022-0 Yes [id number] Take 2 [facility] 25 mg 9-01 tablets by ity of tablet 00:00: mouth [place] 00 twice Medical daily Branch topiramate 2022-0 Yes [id number] Take 2 [facility] 25 mg 9-01 tablets by ity of tablet 00:00: mouth [place] 00 twice Medical daily Branch topiramate 2022-0 2022- No [id number] Take 2 [facility] 25 mg 9-01 09-22 tablets by ity of tablet 00:00: 00:00 mouth [place] 00 :00 twice Medical daily Branch topiramate 2022-0 2022- No [id number] Take 2 [facility] 25 mg 9-01 09-22 tablets by ity of tablet 00:00: 00:00 mouth [place] 00 :00 twice Medical daily Branch topiramate 2022-0 2022- No [id number] Take 2 [facility] 25 mg 9-01 09-22 tablets by ity of tablet 00:00: 00:00 mouth [place] 00 :00 twice Medical daily Branch methocarbam 2022-0 Yes [id number] 500mg Take 1 [facility] oL 500 mg 8-11 tablet by ity o f tablet 00:00: mouth (four) Medical times Branch daily as needed for Pain (scale 7-10). methocarbam 2-0 Yes [id number] 500mg Take 1 [facility] oL 500 mg 8-11 tablet by ity o f tablet 00:00: mouth (four) Medical times Branch daily as needed for Pain (scale 7-10). methocarbam 2021-0 Yes [id number] 500mg Take 1 [facility] oL 500 mg 8-11 tablet by ity o f tablet 00:00: mouth (four) Medical times Branch daily as needed for Pain (scale 7-10). methocarbam 2021-0 Yes [id number] 500mg Take 1 [facility] oL 500 mg 8-11 tablet by ity o f tablet 00:00: mouth (four) Medical times Branch daily as needed for Pain (scale 7-10). methocarbam 2021-0 Yes [id number] 500mg Take 1 [facility] oL 500 mg 8-11 tablet by ity o f tablet 00:00: mouth (four) Medical times Branch daily as needed for Pain (scale 7-10). methocarbam 2021-0 Yes [id number] 500mg Take 1 [facility] oL 500 mg 8-11 tablet by ity o f tablet 00:00: mouth (four) Medical times Branch daily as needed for Pain (scale 7-10). methocarbam 2021-0 Yes [id number] 500mg Take 1 [facility] oL 500 mg 8-11 tablet by ity o f tablet 00:00: mouth (four) Medical times Branch daily as needed for Pain (scale 7-10). methocarbam 2-0 Yes [id number] 500mg Take 1 [facility] oL 500 mg 8-11 tablet by ity o f tablet 00:00: mouth (four) Medical times Branch daily as needed for Pain (scale 7-10). methocarbam 2-0 Yes [id number] 500mg Take 1 [facility] oL 500 mg 8-11 tablet by ity o f tablet 00:00: mouth (four) Medical times Branch daily as needed for Pain (scale 7-10). methocarbam 2-0 Yes [id number] 500mg Take 1 [facility] oL 500 mg 8-11 tablet by ity o f tablet 00:00: mouth (four) Medical times Branch daily as needed for Pain (scale 7-10). methocarbam 2-0 Yes [id number] 500mg Take 1 [facility] oL 500 mg 8-11 tablet by ity o f tablet 00:00: mouth (four) Medical times Branch daily as needed for Pain (scale 7-10). methocarbam 2022-0 Yes [id number] 500mg Take 1 [facility] oL 500 mg 8-11 tablet by ity o f tablet 00:00: mouth (four) Medical times Branch daily as needed for Pain (scale 7-10). methocarbam 2-0 Yes [id number] 500mg Take 1 [facility] oL 500 mg 8-11 tablet by ity o f tablet 00:00: mouth (four) Medical times Branch daily as needed for Pain (scale 7-10). methocarbam 2-0 Yes [id number] 500mg Take 1 [facility] oL 500 mg 8-11 tablet by ity o f tablet 00:00: mouth (four) Medical times Branch daily as needed for Pain (scale 7-10). methocarbam 2-0 Yes [id number] 500mg Take 1 [facility] oL 500 mg 8-11 tablet by ity o f tablet 00:00: mouth (four) Medical times Branch daily as needed for Pain (scale 7-10). methocarbam 2-0 Yes [id number] 500mg Take 1 [facility] oL 500 mg 8-11 tablet by ity o f tablet 00:00: mouth (four) Medical times Branch daily as needed for Pain (scale 7-10). methocarbam 2-0 Yes [id number] 500mg Take 1 [facility] oL 500 mg 8-11 tablet by ity o f tablet 00:00: mouth (four) Medical times Branch daily as needed for Pain (scale 7-10). methocarbam 2022-0 Yes [id number] 500mg Take 1 [facility] oL 500 mg 8-11 tablet by ity o f tablet 00:00: mouth (four) Medical times Branch daily as needed for Pain (scale 7-10). methocarbam 2022-0 Yes [id number] 500mg Take 1 [facility] oL 500 mg 8-11 tablet by ity o f tablet 00:00: mouth (four) Medical times Branch daily as needed for Pain (scale 7-10). methocarbam 2-0 Yes [id number] 500mg Take 1 [facility] oL 500 mg 8-11 tablet by ity o f tablet 00:00: mouth (four) Medical times Branch daily as needed for Pain (scale 7-10). methocarbam 2-0 Yes [id number] 500mg Take 1 [facility] oL 500 mg 8-11 tablet by ity o f tablet 00:00: mouth (four) Medical times Branch daily as needed for Pain (scale 7-10). methocarbam 2-0 Yes [id number] 500mg Take 1 [facility] oL 500 mg 8-11 tablet by ity o f tablet 00:00: mouth (four) Medical times Branch daily as needed for Pain (scale 7-10). methocarbam 2021-0 Yes [id number] 500mg Take 1 [facility] oL 500 mg 8-11 tablet by ity o f tablet 00:00: mouth (four) Medical times Branch daily as needed for Pain (scale 7-10). methocarbam 2-0 Yes [id number] 500mg Take 1 [facility] oL 500 mg 8-11 tablet by ity o f tablet 00:00: mouth (four) Medical times Branch daily as needed for Pain (scale 7-10). methocarbam 2-0 Yes [id number] 500mg Take 1 [facility] oL 500 mg 8-11 tablet by ity o f tablet 00:00: mouth (four) Medical times Branch daily as needed for Pain (scale 7-10). methocarbam 2-0 Yes [id number] 500mg Take 1 [facility] oL 500 mg 8-11 tablet by ity o f tablet 00:00: mouth (four) Medical times Branch daily as needed for Pain (scale 7-10). methocarbam 2022-0 Yes [id number] 500mg Take 1 [facility] oL 500 mg 8-11 tablet by ity o f tablet 00:00: mouth (four) Medical times Branch daily as needed for Pain (scale 7-10). methocarbam 2022-0 Yes [id number] 500mg Take 1 [facility] oL 500 mg 8-11 tablet by ity o f tablet 00:00: mouth (four) Medical times Branch daily as needed for Pain (scale 7-10). methocarbam 2021-0 Yes [id number] 500mg Take 1 [facility] oL 500 mg 8-11 tablet by ity o f tablet 00:00: mouth (four) Medical times Branch daily as needed for Pain (scale 7-10). methocarbam 2021-0 Yes [id number] 500mg Take 1 [facility] oL 500 mg 8-11 tablet by ity o f tablet 00:00: mouth (four) Medical times Branch daily as needed for Pain (scale 7-10). methocarbam 2021-0 Yes [id number] 500mg Take 1 [facility] oL 500 mg 8-11 tablet by ity o f tablet 00:00: mouth (four) Medical times Branch daily as needed for Pain (scale 7-10). methocarbam 2021-0 Yes [id number] 500mg Take 1 [facility] oL 500 mg 8-11 tablet by ity o f tablet 00:00: mouth (four) Medical times Branch daily as needed for Pain (scale 7-10). LOSARTAN 50 2021-0 Yes [id number] Take 1 [facility] mg tablet 7-20 tablet by ity o f 00:00: mouth twice Medical daily Branch DILTIAZEM 2021-0 Yes [id number] Take 1 [facility] [place] 120 mg 24 7-20 capsule by ity of hr capsule 00:00: mouth twice Medical daily Branch LOSARTAN 50 2021-0 Yes [id number] Take 1 [facility] mg tablet 7-20 tablet by ity o f 00:00: mouth twice Medical daily Branch DILTIAZEM 2021-0 Yes [id number] Take 1 [facility] [place] 120 mg 24 7-20 capsule by ity of hr capsule 00:00: mouth twice Medical daily Branch LOSARTAN 50 2021-0 Yes [id number] Take 1 [facility] mg tablet 7-20 tablet by ity o f 00:00: mouth twice Medical daily Branch DILTIAZEM 2021-0 Yes [id number] Take 1 [facility] [place] 120 mg 24 7-20 capsule by ity of hr capsule 00:00: mouth twice Medical daily Branch LOSARTAN 50 2021-0 Yes [id number] Take 1 [facility] mg tablet 7-20 tablet by ity o f 00:00: mouth twice Medical daily Branch DILTIAZEM 2-0 Yes [id number] Take 1 [facility] [place] 120 mg 24 7-20 capsule by ity of hr capsule 00:00: mouth twice Medical daily Branch LOSARTAN 50 2021-0 Yes [id number] Take 1 [facility] mg tablet 7-20 tablet by ity o f 00:00: mouth twice Medical daily Branch DILTIAZEM 2021-0 Yes [id number] Take 1 Un [place] 120 mg 24 7-20 capsule by [facility] capsule 00:00: mouth twice Medical daily Branch LOSARTAN 50 2021-0 Yes [id number] Take 1 [facility] mg tablet 7-20 tablet by [facility] f 00:00: mouth twice Medical daily Branch DILTIAZEM 2021-0 Yes [id number] Take 1 [facility] [place] 120 mg 24 7-20 capsule by [facility] capsule 00:00: mouth twice Medical daily Branch LOSARTAN 50 2021-0 Yes [id number] Take 1 [facility] mg tablet 7-20 tablet by [facility] f 00:00: mouth twice Medical daily Branch DILTIAZEM 2021-0 Yes [id number] Take 1 [facility] [place] 120 mg 24 7-20 capsule by [facility] capsule 00:00: mouth twice Medical daily Branch LOSARTAN 50 2021-0 Yes [id number] Take 1 [facility] mg tablet 7-20 tablet by [facility] f 00:00: mouth twice Medical daily Branch DILTIAZEM 2021-0 Yes [id number] Take 1 [facility] [place] 120 mg 24 7-20 capsule by [facility] capsule 00:00: mouth twice Medical daily Branch LOSARTAN 50 2021-0 Yes [id number] Take 1 [facility] mg tablet 7-20 tablet by [facility] f 00:00: mouth twice Medical daily Branch DILTIAZEM 2-0 Yes [id number] Take 1 [facility] [place] 120 mg 24 7-20 capsule by [facility] capsule 00:00: mouth twice Medical daily Branch LOSARTAN 50 2021-0 Yes [id number] Take 1 [facility] mg tablet 7-20 tablet by [facility] f 00:00: mouth twice Medical daily Branch DILTIAZEM 2021-0 Yes [id number] Take 1 [facility] [place] 120 mg 24 7-20 capsule by [facility] capsule 00:00: mouth twice Medical daily Branch LOSARTAN 50 2021-0 Yes [id number] Take 1 [facility] mg tablet 7-20 tablet by [facility] f 00:00: mouth twice Medical daily Branch DILTIAZEM 2021-0 Yes [id number] Take 1 [facility] [place] 120 mg 24 7-20 capsule by [facility] capsule 00:00: mouth twice Medical daily Branch LOSARTAN 50 2021-0 Yes [id number] Take 1 [facility] mg tablet 7-20 tablet by [facility] f 00:00: mouth twice Medical daily Branch DILTIAZEM 2021-0 Yes [id number] Take 1 [facility] [place] 120 mg 24 7-20 capsule by [facility] capsule 00:00: mouth twice Medical daily Branch LOSARTAN 50 2021-0 Yes [id number] Take 1 [facility] mg tablet 7-20 tablet by [facility] f 00:00: mouth twice Medical daily Branch DILTIAZEM 2021-0 Yes [id number] Take 1 [facility] [place] 120 mg 24 7-20 capsule by [facility] capsule 00:00: mouth twice Medical daily Branch LOSARTAN 50 2021-0 Yes [id number] Take 1 [facility] mg tablet 7-20 tablet by [facility] f 00:00: mouth twice Medical daily Branch DILTIAZEM 2021-0 Yes [id number] Take 1 [facility] [place] 120 mg 24 7-20 capsule by [facility] capsule 00:00: mouth twice Medical daily Branch LOSARTAN 50 2021-0 Yes [id number] Take 1 [facility] mg tablet 7-20 tablet by [facility] f 00:00: mouth twice Medical daily Branch DILTIAZEM 2021-0 Yes [id number] Take 1 [facility] [place] 120 mg 24 7-20 capsule by [facility] capsule 00:00: mouth twice Medical daily Branch LOSARTAN 50 2021-0 Yes [id number] Take 1 [facility] mg tablet 7-20 tablet by [facility] f 00:00: mouth twice Medical daily Branch DILTIAZEM 2021-0 Yes [id number] Take 1 [facility] [place] 120 mg 24 7-20 capsule by [facility] capsule 00:00: mouth twice Medical daily Branch LOSARTAN 50 2021-0 Yes [id number] Take 1 [facility] mg tablet 7-20 tablet by [facility] f 00:00: mouth twice Medical daily Branch DILTIAZEM 2021-0 Yes [id number] Take 1 [facility] [place] 120 mg 24 7-20 capsule by [facility] capsule 00:00: mouth twice Medical daily Branch LOSARTAN 50 2021-0 Yes [id number] Take 1 [facility] mg tablet 7-20 tablet by [facility] o f 00:00: mouth twice Medical daily Branch DILTIAZEM 2021-0 Yes [id number] Take 1 [facility] [place] 120 mg 24 7-20 capsule by [facility] capsule 00:00: mouth twice Medical daily Branch LOSARTAN 50 2021-0 Yes [id number] Take 1 [facility] mg tablet 7-20 tablet by [facility] o f 00:00: mouth twice Medical daily Branch DILTIAZEM 2021-0 Yes [id number] Take 1 [facility] [place] 120 mg 24 7-20 capsule by [facility] capsule 00:00: mouth twice Medical daily Branch LOSARTAN 50 2021-0 Yes [id number] Take 1 [facility] mg tablet 7-20 tablet by [facility] f 00:00: mouth twice Medical daily Branch DILTIAZEM 2021-0 Yes [id number] Take 1 [facility] [place] 120 mg 24 7-20 capsule by [facility] capsule 00:00: mouth twice Medical daily Branch LOSARTAN 50 2021-0 Yes [id number] Take 1 [facility] mg tablet 7-20 tablet by [facility] f 00:00: mouth twice Medical daily Branch DILTIAZEM 2021-0 Yes [id number] Take 1 [facility] [place] 120 mg 24 7-20 capsule by [facility] capsule 00:00: mouth twice Medical daily Branch LOSARTAN 50 2021-0 Yes [id number] Take 1 [facility] mg tablet 7-20 tablet by [facility] f 00:00: mouth twice Medical daily Branch DILTIAZEM 2021-0 Yes [id number] Take 1 [facility] [place] 120 mg 24 7-20 capsule by [facility] capsule 00:00: mouth twice Medical daily Branch LOSARTAN 50 2021-0 Yes [id number] Take 1 [facility] mg tablet 7-20 tablet by [facility] f 00:00: mouth twice Medical daily Branch DILTIAZEM 2-0 Yes [id number] Take 1 [facility] [place] 120 mg 24 7-20 capsule by [facility] capsule 00:00: mouth twice Medical daily Branch LOSARTAN 50 2-0 Yes [id number] Take 1 [facility] mg tablet 7-20 tablet by [facility] f 00:00: mouth twice Medical daily Branch DILTIAZEM 2021-0 Yes [id number] Take 1 [facility] [place] 120 mg 24 7-20 capsule by [facility] capsule 00:00: mouth twice Medical daily Branch LOSARTAN 50 2-0 Yes [id number] Take 1 [facility] mg tablet 7-20 tablet by [facility] f 00:00: mouth twice Medical daily Branch DILTIAZEM 2021-0 Yes [id number] Take 1 [facility] [place] 120 mg 24 7-20 capsule by [facility] capsule 00:00: twice Medical daily Branch LOSARTAN 50 2021-0 Yes [id number] Take 1 [facility] mg tablet 7-20 tablet by [facility] o f 00:00: twice Medical daily Branch DILTIAZEM 2021-0 Yes [id number] Take 1 [facility] [place] 120 mg 24 7-20 capsule by [facility] capsule 00:00: twice Medical daily Branch LOSARTAN 50 2021-0 Yes [id number] Take 1 [facility] mg tablet 7-20 tablet by [facility] o f 00:00: mouth twice Medical daily Branch DILTIAZEM 2021-0 Yes [id number] Take 1 [facility] [place] 120 mg 24 7-20 capsule by [facility] capsule 00:00: twice Medical daily Branch LOSARTAN 50 2-0 Yes [id number] Take 1 [facility] mg tablet 7-20 tablet by [facility] o f 00:00: twice Medical daily Branch DILTIAZEM 2-0 Yes [id number] Take 1 [facility] [place] 120 mg 24 7-20 capsule by [facility] capsule 00:00: twice Medical daily Branch LOSARTAN 50 2-0 Yes [id number] Take 1 [facility] mg tablet 7-20 tablet by [facility] o f 00:00: twice Medical daily Branch DILTIAZEM 2-0 Yes [id number] Take 1 [facility] [place] 120 mg 24 7-20 capsule by [facility] capsule 00:00: twice Medical daily Branch LOSARTAN 50 2-0 Yes [id number] Take 1 [facility] mg tablet 7-20 tablet by [facility] o f 00:00: mouth twice Medical daily Branch DILTIAZEM 0 Yes [id number] Take 1 [facility] 120 mg 24 7-20 capsule by [facility] capsule 00:00: mouth 00 twice Medical daily Branch LOSARTAN 50 2021-0 Yes [id number] Take 1 [facility] mg tablet 7-20 tablet by [facility] f 00:00: mouth 00 twice Medical daily Branch DILTIAZEM 2021-0 Yes [id number] Take 1 [facility] [place] 120 mg 24 7-20 capsule by [facility] capsule 00:00: mouth 00 twice Medical daily Branch LOSARTAN 50 2021-0 Yes [id number] Take 1 [facility] mg tablet 7-20 tablet by [facility] o f 00:00: mouth 00 twice Medical daily Branch DILTIAZEM 2021-0 Yes [id number] Take 1 [facility] 120 mg 24 7-20 capsule by [facility] capsule 00:00: mouth 00 twice Medical daily Branch LOSARTAN 50 2021-0 2021- No [id number] Take 1 [facility] mg tablet 7-20 10-13 tablet by [facility] of 00:00: 00:00 mouth [place] 00 :00 twice Medical daily Branch DILTIAZEM 2021-0 2021- No [id number] Take 1 [facility] 120 mg 24 7-20 10-13 capsule by [facility] hr capsule 00:00: 00:00 mouth [place] 00 :00 twice Medical daily Branch methocarbam 0 Yes [id number] 500mg Take 1 [facility] oL 500 mg 7-02 tablet by [facility] o f tablet 00:00: mouth ([facility]) Medical times Branch daily. methocarbam 2021-0 Yes [id number] 500mg Take 1 [facility] oL 500 mg 7-02 tablet by [facility] o f tablet 00:00: mouth ([facility]) Medical times Branch daily. methocarbam 0 Yes [id number] 500mg Take 1 [facility] oL 500 mg 7-02 tablet by [facility] o f tablet 00:00: mouth (four) Medical times Branch daily. methocarbam 0 Yes [id number] 500mg Take 1 [facility] oL 500 mg 7-02 tablet by [facility]y o f tablet 00:00: mouth (four) Medical times Branch daily. methocarbam 2021-0 Yes [id number] 500mg Take 1 [facility] oL 500 mg 7-02 tablet by [facility] o f tablet 00:00: mouth (four) Medical times Branch daily. methocarbam 2021-0 2021- No [id number] 500mg Take 1 [facility] oL 500 mg 03-27- tablet by [facility] tablet 00:00: 00:00 mouth 4 [place] 00 :00 (four) Medical times Branch daily. SUMATRIPTAN 2-0 Yes [id number] TAKE 1 [facility] 50 mg 6-17 TABLET BY [facility] tablet 00:00: MOUTH [place] 00 NEEDED FOR Medical MIGRAINE Branch HEADACHE (MAY REPEAT IN TWO HOURS) SUMATRIPTAN 2021-0 Yes [id number] TAKE 1 [facility] 50 mg 6-17 TABLET BY [facility] of tablet 00:00: MOUTH [place] 00 NEEDED FOR Medical MIGRAINE Branch HEADACHE (MAY REPEAT IN TWO HOURS) SUMATRIPTAN 2-0 Yes [id number] TAKE 1 [facility] 50 mg 6-17 TABLET BY [facility] of tablet 00:00: MOUTH [place] 00 NEEDED FOR Medical MIGRAINE Branch HEADACHE (MAY REPEAT IN TWO HOURS) SUMATRIPTAN 2021-0 Yes [id number] TAKE 1 [facility] 50 mg 6-17 TABLET BY [facility] tablet 00:00: MOUTH [place] 00 NEEDED FOR Medical MIGRAINE Branch HEADACHE (MAY REPEAT IN TWO HOURS) SUMATRIPTAN 2-0 Yes [id number] TAKE 1 [facility] 50 mg 6-17 TABLET BY [facility] of tablet 00:00: MOUTH [place] 00 NEEDED FOR Medical MIGRAINE Branch HEADACHE (MAY REPEAT IN TWO HOURS) SUMATRIPTAN 2-0 Yes [id number] TAKE 1 [facility] 50 mg 6-17 TABLET BY [facility] of tablet 00:00: MOUTH [place] 00 NEEDED FOR Medical MIGRAINE Branch HEADACHE (MAY REPEAT IN TWO HOURS) SUMATRIPTAN 2-0 Yes [id number] TAKE 1 [facility] 50 mg 6-17 TABLET BY [facility] of tablet 00:00: MOUTH [place] 00 NEEDED FOR Medical MIGRAINE Branch HEADACHE (MAY REPEAT IN TWO HOURS) SUMATRIPTAN 2-0 Yes [id number] TAKE 1 [facility] 50 mg 6-17 TABLET BY ity of tablet 00:00: MOUTH [place] 00 NEEDED FOR Medical MIGRAINE Branch HEADACHE (MAY REPEAT IN TWO HOURS) SUMATRIPTAN 2022-0 Yes [id number] TAKE 1 [facility] 50 mg 6-17 TABLET BY ity of tablet 00:00: MOUTH [place] 00 NEEDED FOR Medical MIGRAINE Branch HEADACHE (MAY REPEAT IN TWO HOURS) SUMATRIPTAN 2022-0 Yes [id number] TAKE 1 [facility] 50 mg 6-17 TABLET BY ity of tablet 00:00: MOUTH [place] 00 NEEDED FOR Medical MIGRAINE Branch HEADACHE (MAY REPEAT IN TWO HOURS) SUMATRIPTAN 2022-0 Yes [id number] TAKE 1 [facility] 50 mg 6-17 TABLET BY [facility]y of tablet 00:00: MOUTH [place] 00 NEEDED FOR Medical MIGRAINE Branch HEADACHE (MAY REPEAT IN TWO HOURS) SUMATRIPTAN 2022-0 Yes [id number] TAKE 1 [facility] 50 mg 6-17 TABLET BY [facility]y of tablet 00:00: MOUTH [place] 00 NEEDED FOR Medical MIGRAINE Branch HEADACHE (MAY REPEAT IN TWO HOURS) SUMATRIPTAN 2-0 Yes [id number] TAKE 1 [facility] 50 mg 6-17 TABLET BY [facility]y of tablet 00:00: MOUTH [place] 00 NEEDED FOR Medical MIGRAINE Branch HEADACHE (MAY REPEAT IN TWO HOURS) SUMATRIPTAN 2-0 Yes [id number] TAKE 1 [facility] 50 mg 6-17 TABLET BY ity of tablet 00:00: MOUTH [place] 00 NEEDED FOR Medical MIGRAINE Branch HEADACHE (MAY REPEAT IN TWO HOURS) SUMATRIPTAN 2-0 Yes [id number] TAKE 1 [facility] 50 mg 6-17 TABLET BY ity of tablet 00:00: MOUTH [place] 00 NEEDED FOR Medical MIGRAINE Branch HEADACHE (MAY REPEAT IN TWO HOURS) SUMATRIPTAN 2-0 Yes [id number] TAKE 1 [facility] 50 mg 6-17 TABLET BY ity of tablet 00:00: MOUTH [place] 00 NEEDED FOR Medical MIGRAINE Branch HEADACHE (MAY REPEAT IN TWO HOURS) SUMATRIPTAN 2-0 Yes [id number] TAKE 1 [facility] 50 mg 6-17 TABLET BY ity of tablet 00:00: MOUTH [place] 00 NEEDED FOR Medical MIGRAINE Branch HEADACHE (MAY REPEAT IN TWO HOURS) SUMATRIPTAN 2022-0 2022- No [id number] TAKE 1 [facility] 50 mg 6-17 09-06 TABLET BY ity of tablet 00:00: 00:00 MOUTH [place] 00 :00 NEEDED FOR Medical MIGRAINE Branch HEADACHE (MAY REPEAT IN TWO HOURS) SUMATRIPTAN 2022-0 2022- No [id number] TAKE 1 [facility] 50 mg 6-17 09-06 TABLET BY [facility] of tablet 00:00: 00:00 MOUTH [place] 00 :00 NEEDED FOR Medical MIGRAINE Branch HEADACHE (MAY REPEAT IN TWO HOURS) fexofenadin 2021-0 Yes [id number] 180mg Take 1 [facility] e (LUIS 6-13 tablet by [facility] of ALLERGY) 00:00: mouth [place] 180 mg 00 daily. Medical tablet Branch fexofenadin Yes [id number] 180mg Take 1 [facility] e (LUIS 6-13 tablet by [facility] of ALLERGY) 00:00: mouth [place] 180 mg 00 daily. Medical tablet Branch fexofenadin 0 Yes [id number] 180mg Take 1 [facility] e (LUIS 6-13 tablet by [facility] of ALLERGY) 00:00: mouth [place] 180 mg 00 daily. Medical tablet Branch fexofenadin Yes [id number] 180mg Take 1 [facility] e (LUIS 6-13 tablet by [facility]y of ALLERGY) 00:00: mouth [place] 180 mg 00 daily. Medical tablet Branch fexofenadin Yes [id number] 180mg Take 1 [facility] e (LUIS 6-13 tablet by ity of ALLERGY) 00:00: mouth [place] 180 mg 00 daily. Medical tablet Branch fexofenadin Yes [id number] 180mg Take 1 [facility] e (LUIS 6-13 tablet by ity of ALLERGY) 00:00: mouth [place] 180 mg 00 daily. Medical tablet Branch fexofenadin Yes [id number] 180mg Take 1 [facility] e (LUIS 6-13 tablet by [facility] of ALLERGY) 00:00: mouth [place] 180 mg 00 daily. Medical tablet Branch fexofenadin Yes [id number] 180mg Take 1 [facility] e (LUIS 6-13 tablet by [facility]y of ALLERGY) 00:00: mouth [place] 180 mg 00 daily. Medical tablet Branch fexofenadin Yes [id number] 180mg Take 1 [facility] e (LUIS 6-13 tablet by [facility]y of ALLERGY) 00:00: mouth [place] 180 mg 00 daily. Medical tablet Branch fexofenadin Yes [id number] 180mg Take 1 [facility] e (LUIS 6-13 tablet by ity of ALLERGY) 00:00: mouth [place] 180 mg 00 daily. Medical tablet Branch fexofenadin Yes [id number] 180mg Take 1 [facility] e (LUIS 6-13 tablet by ity of ALLERGY) 00:00: mouth [place] 180 mg 00 daily. Medical tablet Branch fexofenadin 2021-0 Yes [id number] 180mg Take 1 [facility] e (LUIS 6-13 tablet by ity of ALLERGY) 00:00: mouth [place] 180 mg 00 daily. Medical tablet Branch fexofenadin 0 Yes [id number] 180mg Take 1 [facility] e (LUIS 6-13 tablet by [facility]y of ALLERGY) 00:00: mouth [place] 180 mg 00 daily. Medical tablet Branch fexofenadin 0 Yes [id number] 180mg Take 1 [facility] e (LUIS 6-13 tablet by [facility]y of ALLERGY) 00:00: mouth [place] 180 mg 00 daily. Medical tablet Branch fexofenadin Yes [id number] 180mg Take 1 [facility] e (LUIS 6-13 tablet by [facility]y of ALLERGY) 00:00: mouth [place] 180 mg 00 daily. Medical tablet Branch fexofenadin Yes [id number] 180mg Take 1 [facility] e (LUIS 6-13 tablet by ity of ALLERGY) 00:00: mouth [place] 180 mg 00 daily. Medical tablet Branch fexofenadin Yes [id number] 180mg Take 1 [facility] e (LUIS 6-13 tablet by ity of ALLERGY) 00:00: mouth [place] 180 mg 00 daily. Medical tablet Branch fexofenadin Yes [id number] 180mg Take 1 [facility] e (LUIS 6-13 tablet by ity of ALLERGY) 00:00: mouth [place] 180 mg 00 daily. Medical tablet Branch fexofenadin 0 Yes [id number] 180mg Take 1 [facility] e (LUIS 6-13 tablet by ity of ALLERGY) 00:00: mouth [place] 180 mg 00 daily. Medical tablet Branch fexofenadin 0 Yes [id number] 180mg Take 1 [facility] e (LUIS 6-13 tablet by ity of ALLERGY) 00:00: mouth [place] 180 mg 00 daily. Medical tablet Branch fexofenadin 0 Yes [id number] 180mg Take 1 [facility] e (LUIS 6-13 tablet by ity of ALLERGY) 00:00: mouth [place] 180 mg 00 daily. Medical tablet Branch fexofenadin 0 Yes [id number] 180mg Take 1 [facility] e (LUIS 6-13 tablet by ity of ALLERGY) 00:00: mouth [place] 180 mg 00 daily. Medical tablet Branch fexofenadin 0 Yes [id number] 180mg Take 1 [facility] e (LUIS 6-13 tablet by ity of ALLERGY) 00:00: mouth [place] 180 mg 00 daily. Medical tablet Branch fexofenadin 0 Yes [id number] 180mg Take 1 [facility] e (LUIS 6-13 tablet by ity of ALLERGY) 00:00: mouth [place] 180 mg 00 daily. Medical tablet Branch fexofenadin 0 Yes [id number] 180mg Take 1 [facility] e (LUIS 6-13 tablet by ity of ALLERGY) 00:00: mouth [place] 180 mg 00 daily. Medical tablet Branch fexofenadin 0 Yes [id number] 180mg Take 1 [facility] e (LUIS 6-13 tablet by ity of ALLERGY) 00:00: mouth [place] 180 mg 00 daily. Medical tablet Branch fexofenadin Yes [id number] 180mg Take 1 [facility] e (LUIS 6-13 tablet by ity of ALLERGY) 00:00: mouth [place] 180 mg 00 daily. Medical tablet Branch fexofenadin Yes [id number] 180mg Take 1 [facility] e (LUIS 6-13 tablet by ity of ALLERGY) 00:00: mouth [place] 180 mg 00 daily. Medical tablet Branch fexofenadin Yes [id number] 180mg Take 1 [facility] e (LUIS 6-13 tablet by ity of ALLERGY) 00:00: mouth [place] 180 mg 00 daily. Medical tablet Branch fexofenadin 2021-0 Yes [id number] 180mg Take 1 [facility] e (LUIS 6-13 tablet by ity of ALLERGY) 00:00: mouth [place] 180 mg 00 daily. Medical tablet Branch fexofenadin 0 Yes [id number] 180mg Take 1 [facility] e (LUIS 6-13 tablet by ity of ALLERGY) 00:00: mouth [place] 180 mg 00 daily. Medical tablet Branch fexofenadin 0 Yes [id number] 180mg Take 1 [facility] e (LUIS 6-13 tablet by ity of ALLERGY) 00:00: mouth [place] 180 mg 00 daily. Medical tablet Branch fexofenadin 0 Yes [id number] 180mg Take 1 [facility] e (LUIS 6-13 tablet by ity of ALLERGY) 00:00: mouth [place] 180 mg 00 daily. Medical tablet Branch fexofenadin Yes [id number] 180mg Take 1 [facility] e (LUIS 6-13 tablet by ity of ALLERGY) 00:00: mouth [place] 180 mg 00 daily. Medical tablet Branch fexofenadin Yes [id number] 180mg Take 1 [facility] e (LUIS 6-13 tablet by ity of ALLERGY) 00:00: mouth [place] 180 mg 00 daily. Medical tablet Branch fexofenadin Yes [id number] 180mg Take 1 [facility] e (LUIS 6-13 tablet by ity of ALLERGY) 00:00: mouth [place] 180 mg 00 daily. Medical tablet Branch fexofenadin Yes [id number] 180mg Take 1 [facility] e (LUIS 6-13 tablet by ity of ALLERGY) 00:00: mouth [place] 180 mg 00 daily. Medical tablet Branch fexofenadin Yes [id number] 180mg Take 1 [facility] e (LUIS 6-13 tablet by ity of ALLERGY) 00:00: mouth [place] 180 mg 00 daily. Medical tablet Branch fexofenadin Yes [id number] 180mg Take 1 [facility] e (LUIS 6-13 tablet by ity of ALLERGY) 00:00: mouth [place] 180 mg 00 daily. Medical tablet Branch fexofenadin Yes [id number] 180mg Take 1 [facility] e (LUIS 6-13 tablet by ity of ALLERGY) 00:00: mouth [place] 180 mg 00 daily. Medical tablet Branch fexofenadin Yes [id number] 180mg Take 1 [facility] e (LUIS 6-13 tablet by ity of ALLERGY) 00:00: mouth [place] 180 mg 00 daily. Medical tablet Branch fexofenadin Yes [id number] 180mg Take 1 [facility] e (LUIS 6-13 tablet by ity of ALLERGY) 00:00: mouth [place] 180 mg 00 daily. Medical tablet Branch fexofenadin Yes [id number] 180mg Take 1 [facility] e (LUIS 6-13 tablet by ity of ALLERGY) 00:00: mouth [place] 180 mg 00 daily. Medical tablet Branch fexofenadin Yes [id number] 180mg Take 1 [facility] e (LUIS 6-13 tablet by ity of ALLERGY) 00:00: mouth [place] 180 mg 00 daily. Medical [facility] Branch rosuvastati Yes [id number] 10mg Take 1 [facility] n 10 mg 6-08 tablet by ity of tablet 00:00: mouth at [place] 00 bedtime. Medical Branch rosuvastati Yes [id number] 10mg Take 1 [facility] n 10 mg 6-08 tablet by ity of tablet 00:00: mouth at [place] 00 bedtime. Medical Branch rosuvastati Yes [id number] 10mg Take 1 [facility] n 10 mg 6-08 tablet by ity of tablet 00:00: mouth at [place] 00 bedtime. Medical Branch rosuvastati Yes [id number] 10mg Take 1 [facility] n 10 mg 6-08 tablet by ity of tablet 00:00: mouth at [place] 00 bedtime. Medical Branch rosuvastati Yes [id number] 10mg Take 1 [facility] n 10 mg 6-08 tablet by ity of tablet 00:00: mouth at [place] 00 bedtime. Medical Branch rosuvastati Yes [id number] 10mg Take 1 [facility] n 10 mg 6-08 tablet by ity of tablet 00:00: mouth at [place] 00 bedtime. Medical Branch rosuvastati Yes [id number] 10mg Take 1 [facility] n 10 mg 6-08 tablet by ity of tablet 00:00: mouth at [place] 00 bedtime. Medical Branch rosuvastati 2021- Yes [id number] 10mg Take 1 [facility] n 10 mg 6-08 tablet by ity of tablet 00:00: mouth at [place] 00 bedtime. Medical Branch rosuvastati 2021- Yes [id number] 10mg Take 1 [facility] n 10 mg 6-08 tablet by ity of tablet 00:00: mouth at [place] 00 bedtime. Medical Branch rosuvastati 2021- Yes [id number] 10mg Take 1 [facility] n 10 mg 6-08 tablet by ity of tablet 00:00: mouth at [place] 00 bedtime. Medical Branch rosuvastati Yes [id number] 10mg Take 1 [facility] n 10 mg 6-08 tablet by ity of tablet 00:00: mouth at [place] 00 bedtime. Medical Branch rosuvastati 2021- Yes [id number] 10mg Take 1 [facility] n 10 mg 6-08 tablet by ity of tablet 00:00: mouth at [place] 00 bedtime. Medical Branch rosuvastati Yes [id number] 10mg Take 1 [facility] n 10 mg 6-08 tablet by ity of tablet 00:00: mouth at [place] bedtime. Medical Branch rosuvastati 2021- Yes [id number] 10mg Take 1 [facility] n 10 mg 6-08 tablet by ity of tablet 00:00: mouth at [place] bedtime. Medical Branch rosuvastati Yes [id number] 10mg Take 1 [facility] n 10 mg 6-08 tablet by ity of tablet 00:00: mouth at [place] bedtime. Medical Branch rosuvastati Yes [id number] 10mg Take 1 [facility] n 10 mg 6-08 tablet by ity of tablet 00:00: mouth at [place] bedtime. Medical Branch rosuvastati Yes [id number] 10mg Take 1 [facility] n 10 mg 6-08 tablet by ity of tablet 00:00: mouth at [place] bedtime. Medical Branch rosuvastati Yes [id number] 10mg Take 1 [facility] n 10 mg 6-08 tablet by ity of tablet 00:00: mouth at [place] bedtime. Medical Branch rosuvastati Yes [id number] 10mg Take 1 [facility] n 10 mg 6-08 tablet by ity of tablet 00:00: mouth at [place] [address] bedtime. Medical Branch rosuvastati 2021- Yes [id number] 10mg Take 1 [facility] n 10 mg 6-08 tablet by ity of tablet 00:00: mouth at [place] [address] bedtime. Medical Branch rosuvastati 2021- Yes [id number] 10mg Take 1 [facility] n 10 mg 6-08 tablet by ity of tablet 00:00: mouth at [place] bedtime. Medical Branch rosuvastati 2021- Yes [id number] 10mg Take 1 [facility] n 10 mg 6-08 tablet by ity of tablet 00:00: mouth at [place] bedtime. Medical Branch rosuvastati 2021- Yes [id number] 10mg Take 1 [facility] n 10 mg 6-08 tablet by ity of tablet 00:00: mouth at [place] [address] bedtime. Medical Branch rosuvastati 0 Yes [id number] 10mg Take 1 [facility] n 10 mg 6-08 tablet by ity of tablet 00:00: mouth at [place] 00 bedtime. Medical Branch rosuvastati Yes [id number] 10mg Take 1 [facility] n 10 mg 6-08 tablet by ity of tablet 00:00: mouth at [place] bedtime. Medical Branch rosuvastati 2021-0 Yes [id number] 10mg Take 1 [facility] n 10 mg 6-08 tablet by ity of tablet 00:00: mouth at [place] 00 bedtime. Medical Branch rosuvastati Yes [id number] 10mg Take 1 [facility] n 10 mg 6-08 tablet by ity of tablet 00:00: mouth at [place] 00 bedtime. Medical Branch rosuvastati Yes [id number] 10mg Take 1 [facility] n 10 mg 6-08 tablet by ity of tablet 00:00: mouth at [place] 00 bedtime. Medical Branch rosuvastati Yes [id number] 10mg Take 1 [facility] n 10 mg 6-08 tablet by ity of tablet 00:00: mouth at [place] bedtime. Medical Branch rosuvastati Yes [id number] 10mg Take 1 [facility] n 10 mg 6-08 tablet by ity of tablet 00:00: mouth at [place] [address] bedtime. Medical Branch rosuvastati Yes [id number] 10mg Take 1 [facility] n 10 mg 6-08 tablet by ity of tablet 00:00: mouth at [place] bedtime. Medical Branch rosuvastati 2021- Yes [id number] 10mg Take 1 [facility] n 10 mg 6-08 tablet by ity of tablet 00:00: mouth at [place] [address] bedtime. Medical Branch rosuvastati Yes [id number] 10mg Take 1 [facility] n 10 mg 6-08 tablet by ity of tablet 00:00: mouth at [place] 00 bedtime. Medical Branch rosuvastati 0 Yes [id number] 10mg Take 1 [facility] n 10 mg 6-08 tablet by ity of tablet 00:00: mouth at [place] 00 bedtime. Medical Branch rosuvastati 2021- Yes [id number] 10mg Take 1 [facility] n 10 mg 6-08 tablet by ity of tablet 00:00: mouth at [place] 00 bedtime. Medical Branch rosuvastati Yes [id number] 10mg Take 1 [facility] n 10 mg 6-08 tablet by ity of tablet 00:00: mouth at [place] [address] bedtime. Medical Branch rosuvastati Yes [id number] 10mg Take 1 [facility] n 10 mg 6-08 tablet by ity of tablet 00:00: mouth at [place] [address] bedtime. Medical Branch rosuvastati Yes [id number] 10mg Take 1 [facility] n 10 mg 6-08 tablet by ity of tablet 00:00: mouth at [place] [address] bedtime. Medical Branch rosuvastati Yes [id number] 10mg Take 1 [facility] n 10 mg 6-08 tablet by ity of tablet 00:00: mouth at [place] [address] bedtime. Medical Branch rosuvastati Yes [id number] 10mg Take 1 [facility] n 10 mg 6-08 tablet by ity of tablet 00:00: mouth at [place] [address] bedtime. Medical Branch rosuvastati Yes [id number] 10mg Take 1 [facility] n 10 mg 6-08 tablet by ity of tablet 00:00: mouth at [place] [address] bedtime. Medical Branch rosuvastati Yes [id number] 10mg Take 1 [facility] n 10 mg 6-08 tablet by ity of tablet 00:00: mouth at [place] [address] bedtime. Medical Branch rosuvastati Yes [id number] 10mg Take 1 [facility] n 10 mg 6-08 tablet by ity of tablet 00:00: mouth at [place] [address] bedtime. Medical Branch rosuvastati Yes [id number] 10mg Take 1 [facility] n 10 mg 6-08 tablet by ity of tablet 00:00: mouth at [place] [address] bedtime. Medical Branch rosuvastati Yes [id number] 10mg Take 1 [facility] n 10 mg 6-08 tablet by ity of tablet 00:00: mouth at [place] [address] bedtime. Medical Branch rosuvastati 2021- No [id number] 10mg Take 1 [facility] n 10 mg 6-08 10-13 tablet by ity of tablet 00:00: 00:00 mouth at [place] 00 :00 bedtime. Medical Branch water for 2021- No PRN, [facility] irrigation 03-02 Starting ity of [place] 14:20: 15:50 [place] solution 00 :27 03/02/22 at Medica l 0920, Branch Until Tue03/02/22 at 1050, Routine, Intra-op simethicone 2021- No PRN, [facility] rs (GAS RELIEF 03-02 06-07 Starting ity of (SIMETHICON 14:20: 15:50 on e Emanuel as E)) 40 00 :27 03/02/22 at Medical mg/0.6 mL 0920, Branch drops Until Tue03/02/22 at 1050, Routine, Intra-op lactated 2021- No 1000mL at [address] [facility] rs ringers IV - 06-07 mL/hr, ity of infusion 12:45: 12:59 1,000 mL, Emanuel as 1,000 mL 00 :00 IV Medical Infusion, Branch ONCE, 1 dose, On Tue03/02/22 at 0745, Routine, DSU Pre-op lactated 2021- No 1000mL at 42 [facility] ringers IV - 06-07 mL/hr, ity of infusion 12:45: 12:59 1,000 mL, E[place] as 1,000 mL 00 :00 IV Medical Infusion, Branch ONCE, 1 dose, On Tue03/02/22 at 0745, Routine, DSU Pre-op FOLIC ACID Yes Take by [facility] ORAL 6-07 mouth ity of 11:23: daily. [address] Branch MULTIVIT Yes Take by [facility] s &MINERALS/F 6-07 mouth. ity of ERROUS FUM 11:23: [place] ([place] [address] Medical VITAMIN Branch ORAL) METHYLCELLU Yes [facility] s LOSE (FIBER 6-07 ity of THERAPY 11:23: [place] MISC) 09 Medical Branch DOCUSATE Yes Take by [facility] s SODIUM 6-07 mouth. ity [...] CRANBERRY Yes Take by [facility] FRUIT 6-07 mouth ity of EXTRACT 11:23: daily. [place] ([place] Medical ORAL) Branch CALCIUM Yes Take by [facility] ORAL 6-07 mouth ity of 11:23: daily. [place] [facility] Branch DOCOSAHEXAN Yes 1000mg Take 1,000 [facility] OIC 6-07 mg by ity of ACID/EPA 11:23: mouth [place] (FISH OIL 09 daily. Medical ORAL) Branch BIOTIN ORAL Yes Take by Uni vers 6-07 mouth. ity of 11:23: Medical Branch FOLIC ACID Yes Take by Univ ers ORAL 6-07 mouth ity of 11:23: daily. [place] [facility] Branch MULTIVIT Yes Take by [facility] s &MINERALS/F 6-07 mouth. ity of ERROUS FUM 11:23: [place] (MULTI 09 Medical VITAMIN Branch ORAL) METHYLCELLU Yes Univer s LOSE (FIBER 6-07 ity of THERAPY 11:23: [place] MISC) 09 Medical Branch DOCUSATE Yes Take by [facility] s SODIUM 6-07 mouth. ity of (COLACE 11:23: [place] ORAL) 09 Medical Branch vitamin C Yes 1000mg Take 1,000 [facility] with derrell 6-07 mg by ity of hips 11:23: mouth [place] (VITAMIN C) 09 daily. Medica l 1,000 mg Branch tablet cholecalcif Yes 1000U Take 1,000 [facility] edmar, 6-07 Units by ity of vitamin D3, 11:23: mouth [place] (VITAMIN 09 daily. Medical D3) 1,000 Branch unit tablet CRANBERRY Yes Take by [facility] rs FRUIT 6-07 mouth ity of EXTRACT 11:23: daily. [place] ([place] Medical ORAL) Branch CALCIUM Yes Take by [facility] ORAL 6-07 mouth ity of 11:23: daily. [place] [facility] Branch DOCOSAHEXAN Yes 1000mg Take 1,000 [facility] OIC 6-07 mg by ity of ACID/EPA 11:23: mouth [place] (FISH OIL 09 daily. Medical ORAL) Branch BIOTIN ORAL Yes Take by [facility] vers 6-07 mouth. ity of 11:23: Medical Branch FOLIC ACID Yes Take by Univ ers ORAL 6-07 mouth ity of 11:23: daily. [place] [facility] Branch MULTIVIT Yes Take by Univer s &MINERALS/F 6-07 mouth. ity of ERROUS FUM 11:23: [place] (MULTI 09 Medical VITAMIN Branch ORAL) METHYLCELLU Yes Univer s LOSE (FIBER 6-07 ity of THERAPY 11:23: [facility]) 09 Medical Branch DOCUSATE Yes Take by Univer s SODIUM 6-07 mouth. ity of (COLACE 11:23: [place] ORAL) 09 Medical Branch vitamin C Yes 1000mg Take 1,000 [facility] with derrell 6-07 mg by ity of hips 11:23: mouth [place] (VITAMIN C) 09 daily. Medica l 1,000 mg Branch tablet cholecalcif Yes 1000U Take 1,000 [facility] edmar, 6-07 Units by ity of vitamin D3, 11:23: mouth [place] (VITAMIN 09 daily. Medical D3) 1,000 Branch unit tablet CRANBERRY Yes Take by Unive rs FRUIT 6-07 mouth ity of EXTRACT 11:23: daily. [place] ([place] Medical ORAL) Branch CALCIUM Yes Take by [facility] ORAL 6-07 mouth ity of 11:23: daily. [place] Medical Branch DOCOSAHEXAN Yes 1000mg Take 1,000 [facility] OIC 6-07 mg by ity of ACID/EPA 11:23: mouth [place] (FISH OIL 09 daily. Medical ORAL) Branch BIOTIN ORAL Yes Take by Uni vers 6-07 mouth. ity of 11:23: Medical Branch FOLIC ACID Yes Take by Univ ers ORAL 6-07 mouth ity of 11:23: daily. [place] Medical Branch MULTIVIT Yes Take by Univer s &MINERALS/F 6-07 mouth. ity of ERROUS FUM 11:23: [place] (MULTI 09 Medical VITAMIN Branch ORAL) METHYLCELLU 0 Yes Univer s LOSE (FIBER 6-07 ity of THERAPY 11:23: [place] MISC) 09 Medical Branch DOCUSATE Yes Take by [facility] s SODIUM 6-07 mouth. ity [...] Branch unit tablet CRANBERRY Yes Take by [facility] rs FRUIT 6-07 mouth ity of EXTRACT 11:23: daily. [place] ([place] Medical ORAL) Branch CALCIUM Yes Take by [facility] ORAL 6-07 mouth ity of 11:23: daily. [place] Medical Branch DOCOSAHEXAN Yes 1000mg Take 1,000 [facility] OIC 6-07 mg by ity of ACID/EPA 11:23: mouth [place] (FISH OIL 09 daily. Medical ORAL) Branch BIOTIN ORAL Yes Take by Uni vers 6-07 mouth. ity of 11:23: [place] [address] Medical Branch FOLIC ACID Yes Take by [facility] ers ORAL 6-07 mouth ity of 11:23: daily. [place] [address] Medical Branch MULTIVIT Yes Take by [facility] s &MINERALS/F 6-07 mouth. ity of ERROUS FUM 11:23: [place] (MULTI 09 Medical VITAMIN Branch ORAL) METHYLCELLU Yes [facility] s LOSE (FIBER 6-07 ity of THERAPY 11:23: [place] MIS) 09 Medical Branch DOCUSATE Yes Take by [facility] s SODIUM 6-07 mouth. ity [...] CRANBERRY Yes Take by [facility] FRUIT 6-07 mouth ity of EXTRACT 11:23: daily. [place] ([place] Medical ORAL) Branch CALCIUM Yes Take by [facility] ORAL 6-07 mouth ity of 11:23: daily. [place] Medical Branch DOCOSAHEXAN Yes 1000mg Take 1,000 [facility] OIC 6-07 mg by ity of ACID/EPA 11:23: mouth [place] (FISH OIL 09 daily. Medical ORAL) Branch BIOTIN ORAL Yes Take by [facility] vers 6-07 mouth. ity of 11:23: [place] [facility] Branch FOLIC ACID Yes Take by Univ ers ORAL 6-07 mouth ity of 11:23: daily. [place] [facility] Branch MULTIVIT Yes Take by [facility] s &MINERALS/F 6-07 mouth. ity of ERROUS FUM 11:23: [place] (MULTI 09 Medical VITAMIN Branch ORAL) METHYLCELLU Yes [facility] s LOSE (FIBER 6-07 ity of THERAPY 11:23: [place] MISC) Medical Branch DOCUSATE Yes Take by [facility] SODIUM 6-07 mouth. ity of (COLACE 11:23: [place] ORAL) 09 Medical Branch vitamin C Yes 1000mg Take 1,000 [facility] with derrell 6-07 mg by ity of hips 11:23: mouth [place] (VITAMIN C) 09 daily. Medica l 1,000 mg Branch tablet cholecalcif Yes 1000U Take 1,000 [facility] edmar, 6-07 Units by ity of vitamin D3, 11:23: mouth [place] (VITAMIN 09 daily. Medical D3) 1,000 Branch unit tablet CRANBERRY Yes Take by [facility] FRUIT 6-07 mouth ity of EXTRACT 11:23: daily. [place] ([place] Medical ORAL) Branch CALCIUM Yes Take by [facility] ORAL 6-07 mouth ity of 11:23: daily. [place] Medical Branch DOCOSAHEXAN Yes 1000mg Take 1,000 [facility] OIC 6-07 mg by ity of ACID/EPA 11:23: mouth [place] (FISH OIL 09 daily. Medical ORAL) Branch BIOTIN ORAL Yes Take by Uni vers 6-07 mouth. ity of 11:23: [place] [address] Medical Branch FOLIC ACID Yes Take by [facility] ers ORAL 6-07 mouth ity of 11:23: daily. [place] [address] Medical Branch MULTIVIT Yes Take by Univer s &MINERALS/F 6-07 mouth. ity of ERROUS FUM 11:23: [place] ([place] [address] Medical VITAMIN Branch ORAL) METHYLCELLU Yes Univer s LOSE (FIBER 6-07 ity of THERAPY 11:23: [facility]) 09 Medical Branch DOCUSATE Yes Take by Univer s SODIUM 6-07 mouth. ity of (COLACE 11:23: [place] ORAL) 09 Medical Branch vitamin C Yes 1000mg Take 1,000 [facility] with derrell 6-07 mg by ity of hips 11:23: mouth [place] (VITAMIN C) 09 daily. Medica l 1,000 mg Branch tablet cholecalcif Yes 1000U Take 1,000 [facility] edmar, 6-07 Units by ity of vitamin D3, 11:23: mouth [place] (VITAMIN 09 daily. Medical D3) 1,000 Branch unit tablet CRANBERRY Yes Take by [facility] rs FRUIT 6-07 mouth ity of EXTRACT 11:23: daily. [place] ([place] 09 Medical ORAL) Branch CALCIUM Yes Take by [facility] ORAL 6-07 mouth ity of 11:23: daily. [place] [address] Medical Branch DOCOSAHEXAN Yes 1000mg Take 1,000 [facility] OIC 6-07 mg by ity of ACID/EPA 11:23: mouth [place] (FISH OIL 09 daily. Medical ORAL) Branch BIOTIN ORAL Yes Take by Uni vers 6-07 mouth. ity of 11:23: [place] [address] Medical Branch FOLIC ACID Yes Take by [facility] ers ORAL 6-07 mouth ity of 11:23: daily. [place] [address] Medical Branch MULTIVIT Yes Take by [facility] s &MINERALS/F 6-07 mouth. ity of ERROUS FUM 11:23: [place] ([place] [address] Medical VITAMIN Branch ORAL) METHYLCELLU Yes Univer s LOSE (FIBER 6-07 ity of THERAPY 11:23: [facility]) 09 Medical Branch DOCUSATE Yes Take by [facility] s SODIUM 6-07 mouth. ity [...] CRANBERRY Yes Take by [facility] FRUIT 6-07 mouth ity of EXTRACT 11:23: daily. [place] ([place] Medical ORAL) Branch CALCIUM Yes Take by [facility] ORAL 6-07 mouth ity of 11:23: daily. [place] Medical Branch DOCOSAHEXAN Yes 1000mg Take 1,000 [facility] OIC 6-07 mg by ity of ACID/EPA 11:23: mouth [place] (FISH OIL 09 daily. Medical ORAL) Branch BIOTIN ORAL Yes Take by Uni vers 6-07 mouth. ity of 11:23: Medical Branch FOLIC ACID Yes Take by Univ ers ORAL 6-07 mouth ity of 11:23: daily. [place] Medical Branch MULTIVIT Yes Take by [facility] s &MINERALS/F 6-07 mouth. ity of ERROUS FUM 11:23: [place] (MULTI 09 Medical VITAMIN Branch ORAL) METHYLCELLU Yes [facility] s LOSE (FIBER 6-07 ity of THERAPY 11:23: [place] MISC) 09 Medical Branch DOCUSATE Yes Take by [facility] rs SODIUM 6-07 mouth. ity of (COLACE 11:23: [place] ORAL) 09 Medical Branch vitamin C Yes 1000mg Take 1,000 [facility] with derrell 6-07 mg by ity of hips 11:23: mouth [place] (VITAMIN C) 09 daily. Medica l 1,000 mg Branch tablet cholecalcif Yes 1000U Take 1,000 [facility] edmar, 6-07 Units by ity of vitamin D3, 11:23: mouth [place] (VITAMIN 09 daily. Medical D3) 1,000 Branch unit tablet CRANBERRY Yes Take by [facility] FRUIT 6-07 mouth ity of EXTRACT 11:23: daily. [place] ([place] 09 Medical ORAL) Branch CALCIUM Yes Take by [facility] ORAL 6-07 mouth ity of 11:23: daily. [place] Medical Branch DOCOSAHEXAN Yes 1000mg Take 1,000 [facility] OIC 6-07 mg by ity of ACID/EPA 11:23: mouth [place] (FISH OIL 09 daily. Medical ORAL) Branch BIOTIN ORAL Yes Take by Uni vers 6-07 mouth. ity of 11:23: Medical Branch FOLIC ACID Yes Take by Univ ers ORAL 6-07 mouth ity of 11:23: daily. [place] Medical Branch MULTIVIT Yes Take by Univer s &MINERALS/F 6-07 mouth. ity of ERROUS FUM 11:23: [place] (MULTI 09 Medical VITAMIN Branch ORAL) METHYLCELLU Yes [facility] s LOSE (FIBER 6-07 ity of THERAPY 11:23: [place] MISC) Medical Branch DOCUSATE Yes Take by [facility] s SODIUM 6-07 mouth. ity of (COLACE 11:23: [place] ORAL) 09 Medical Branch vitamin C Yes 1000mg Take 1,000 [facility] with derrell 6-07 mg by ity of hips 11:23: mouth [place] (VITAMIN C) 09 daily. Medica l 1,000 mg Branch tablet cholecalcif Yes 1000U Take 1,000 [facility] edmar, 6-07 Units by ity of vitamin D3, 11:23: mouth [place] (VITAMIN 09 daily. Medical D3) 1,000 Branch unit tablet CRANBERRY Yes Take by [facility] FRUIT 6-07 mouth ity of EXTRACT 11:23: daily. [place] ([place] Medical ORAL) Branch CALCIUM Yes Take by [facility] ORAL 6-07 mouth ity of 11:23: daily. [place] Medical Branch DOCOSAHEXAN Yes 1000mg Take 1,000 [facility] OIC 6-07 mg by ity of ACID/EPA 11:23: mouth [place] (FISH OIL 09 daily. Medical ORAL) Branch BIOTIN ORAL Yes Take by [facility] vers 6-07 mouth. ity of 11:23: Medical Branch FOLIC ACID Yes Take by Univ ers ORAL 6-07 mouth ity of 11:23: daily. [place] [facility] Branch MULTIVIT Yes Take by [facility] s &MINERALS/F 6-07 mouth. ity of ERROUS FUM 11:23: [place] (MULTI 09 Medical VITAMIN Branch ORAL) METHYLCELLU Yes [facility] s LOSE (FIBER 6-07 ity of THERAPY 11:23: [facility]) Medical Branch DOCUSATE Yes Take by [facility] s SODIUM 6-07 mouth. ity of (COLACE 11:23: [place] ORAL) 09 Medical Branch vitamin C Yes 1000mg Take 1,000 [facility] with derrell 6-07 mg by ity of hips 11:23: mouth [place] (VITAMIN C) 09 daily. Medica l 1,000 mg Branch tablet cholecalcif Yes 1000U Take 1,000 [facility] edmar, 6-07 Units by ity of vitamin D3, 11:23: mouth [place] (VITAMIN 09 daily. Medical D3) 1,000 Branch unit tablet CRANBERRY Yes Take by [facility] rs FRUIT 6-07 mouth ity of EXTRACT 11:23: daily. [place] ([place] 09 Medical ORAL) Branch CALCIUM Yes Take by [facility] ORAL 6-07 mouth ity of 11:23: daily. [place] [address] Medical Branch DOCOSAHEXAN Yes 1000mg Take 1,000 [facility] OIC 6-07 mg by ity of ACID/EPA 11:23: mouth [place] (FISH OIL 09 daily. Medical ORAL) Branch BIOTIN ORAL Yes Take by Uni vers 6-07 mouth. ity of 11:23: [place] [address] Medical Branch FOLIC ACID Yes Take by Univ ers ORAL 6-07 mouth ity of 11:23: daily. [place] [address] Medical Branch MULTIVIT Yes Take by [facility] s &MINERALS/F 6-07 mouth. ity of ERROUS FUM 11:23: [place] (MULTI 09 Medical VITAMIN Branch ORAL) METHYLCELLU 0 Yes Univer s LOSE (FIBER 6-07 ity of THERAPY 11:23: [facility]) Medical Branch DOCUSATE Yes Take by [facility] s SODIUM 6-07 mouth. ity of (COLACE [...] 6-07 mouth ity of EXTRACT 11:23: daily. [place] ([place] Medical ORAL) Branch CALCIUM Yes Take by [facility] ORAL 6-07 mouth ity of 11:23: daily. [place] Medical Branch DOCOSAHEXAN Yes 1000mg Take 1,000 [facility] OIC 6-07 mg by ity of ACID/EPA 11:23: mouth [place] (FISH OIL 09 daily. Medical ORAL) Branch BIOTIN ORAL Yes Take by Uni vers 6-07 mouth. ity of 11:23: Medical Branch FOLIC ACID Yes Take by Univ ers ORAL 6-07 mouth ity of 11:23: daily. [place] Medical Branch MULTIVIT Yes Take by Univer s &MINERALS/F 6-07 mouth. ity of ERROUS FUM 11:23: [place] (MULTI 09 Medical VITAMIN Branch ORAL) METHYLCELLU Yes Univer s LOSE (FIBER 6-07 ity of THERAPY 11:23: [place] MISC) 09 Medical Branch DOCUSATE Yes Take [...] 6-07 mouth ity of EXTRACT 11:23: daily. [place] ([place] Medical ORAL) Branch CALCIUM Yes Take by [facility] ORAL 6-07 mouth ity of 11:23: daily. [place] Medical Branch DOCOSAHEXAN Yes 1000mg Take 1,000 [facility] OIC 6-07 mg by ity of ACID/EPA 11:23: mouth [place] (FISH OIL 09 daily. Medical ORAL) Branch BIOTIN ORAL Yes Take by Uni vers 6-07 mouth. ity of 11:23: Medical Branch FOLIC ACID Yes Take by Univ ers ORAL 6-07 mouth ity of 11:23: daily. [place] Medical Branch MULTIVIT Yes Take by Univer s &MINERALS/F 6-07 mouth. ity of ERROUS FUM 11:23: [place] (MULTI 09 Medical VITAMIN Branch ORAL) METHYLCELLU Yes Univer s LOSE (FIBER 6-07 ity of THERAPY 11:23: [place] MISC) 09 Medical Branch DOCUSATE Yes Take by Univer s SODIUM 6-07 mouth. ity of (COLACE 11:23: [place] ORAL) 09 Medical Branch vitamin C Yes 1000mg Take 1,000 [facility] with derrell 6-07 mg by ity of hips 11:23: mouth [place] (VITAMIN C) 09 daily. Medica l 1,000 mg Branch tablet cholecalcif Yes 1000U Take 1,000 [facility] edmar, 6-07 Units by ity of vitamin D3, 11:23: mouth [place] (VITAMIN 09 daily. Medical D3) 1,000 Branch unit tablet CRANBERRY Yes Take by Unive rs FRUIT 6-07 mouth ity of EXTRACT 11:23: daily. [place] ([place] Medical ORAL) Branch CALCIUM Yes Take by [facility] ORAL 6-07 mouth ity of 11:23: daily. [place] Medical Branch DOCOSAHEXAN Yes 1000mg Take 1,000 [facility] OIC 6-07 mg by ity of ACID/EPA 11:23: mouth [place] (FISH OIL 09 daily. Medical ORAL) Branch BIOTIN ORAL Yes Take by Uni vers 6-07 mouth. ity of 11:23: Medical Branch FOLIC ACID Yes Take by Univ ers ORAL 6-07 mouth ity of 11:23: daily. [place] Medical Branch MULTIVIT Yes Take by Univer s &MINERALS/F 6-07 mouth. ity of ERROUS FUM 11:23: [place] (MULTI 09 Medical VITAMIN Branch ORAL) METHYLCELLU 0 Yes Univer s LOSE (FIBER 6-07 ity of THERAPY 11:23: [facility]) 09 Medical Branch DOCUSATE Yes Take by [...] CRANBERRY Yes Take [facility] FRUIT 6-07 mouth ity of EXTRACT 11:23: daily. [place] ([place] 09 Medical ORAL) Branch CALCIUM Yes Take by Univers ORAL 6-07 mouth ity of 11:23: daily. [place] Medical Branch DOCOSAHEXAN Yes 1000mg Take 1,000 [facility] OIC 6-07 mg by ity of ACID/EPA 11:23: mouth [place] (FISH OIL 09 daily. Medical ORAL) Branch BIOTIN ORAL Yes Take by Uni vers 6-07 mouth. ity of 11:23: [place] [address] Medical Branch FOLIC ACID Yes Take by Univ ers ORAL 6-07 mouth ity of 11:23: daily. [place] [address] Medical Branch MULTIVIT Yes Take by [facility] s &MINERALS/F 6-07 mouth. ity of ERROUS FUM 11:23: [place] (MULTI 09 Medical VITAMIN Branch ORAL) METHYLCELLU 0 Yes Univer s LOSE (FIBER 6-07 ity of THERAPY 11:23: [facility]) 09 Medical Branch DOCUSATE 0 Yes Take by Univer s SODIUM 6-07 mouth. ity of (COLACE 11:23: [place] ORAL) 09 Medical Branch vitamin C Yes 1000mg Take 1,000 [facility] with derrell 6-07 mg by ity of hips 11:23: mouth [place] (VITAMIN C) 09 daily. Medica l 1,000 mg Branch tablet cholecalcif 0 Yes 1000U Take 1,000 [facility] edmar, 6-07 Units by ity of vitamin D3, 11:23: mouth [place] (VITAMIN 09 daily. Medical D3) 1,000 Branch unit tablet CRANBERRY Yes Take by [facility] FRUIT 6-07 mouth ity of EXTRACT 11:23: daily. [place] ([place] Medical ORAL) Branch CALCIUM Yes Take by Univers ORAL 6-07 mouth ity of 11:23: daily. [place] [facility] Branch DOCOSAHEXAN Yes 1000mg Take 1,000 [facility] OIC 6-07 mg by ity of ACID/EPA 11:23: mouth [place] (FISH OIL 09 daily. Medical ORAL) Branch BIOTIN ORAL Yes Take by Uni vers 6-07 mouth. ity of 11:23: [place] [address] Medical Branch FOLIC ACID Yes Take by Univ ers ORAL 6-07 mouth ity of 11:23: daily. [place] [facility] Branch MULTIVIT Yes Take by [facility] s &MINERALS/F 6-07 mouth. ity of ERROUS FUM 11:23: [place] (MULTI 09 Medical VITAMIN Branch ORAL) METHYLCELLU Yes [facility] s LOSE (FIBER 6-07 ity of THERAPY 11:23: [place] MISC) Medical Branch DOCUSATE Yes Take by [facility] s SODIUM 6-07 mouth. ity of (COLACE 11:23: [place] ORAL) 09 Medical Branch vitamin C Yes 1000mg Take 1,000 [facility] with derrell 6-07 mg by ity of hips 11:23: mouth [place] (VITAMIN C) 09 daily. Medica l 1,000 mg Branch tablet cholecalcif Yes 1000U Take 1,000 [facility] edmar, 6-07 Units by ity of vitamin D3, 11:23: mouth [place] (VITAMIN 09 daily. Medical D3) 1,000 Branch unit tablet CRANBERRY Yes Take by [facility] rs FRUIT 6-07 mouth ity of EXTRACT 11:23: daily. [place] ([place] Medical ORAL) Branch CALCIUM Yes Take by Univers ORAL 6-07 mouth ity of 11:23: daily. [place] [facility] Branch DOCOSAHEXAN Yes 1000mg Take 1,000 [facility] OIC 6-07 mg by ity of ACID/EPA 11:23: mouth [place] (FISH OIL 09 daily. Medical ORAL) Branch BIOTIN ORAL Yes Take by Uni vers 6-07 mouth. ity of 11:23: Medical Branch FOLIC ACID Yes Take by Univ ers ORAL 6-07 mouth ity of 11:23: daily. [place] [facility] Branch MULTIVIT Yes Take by Univer s &MINERALS/F 6-07 mouth. ity of ERROUS FUM 11:23: [place] (MULTI 09 Medical VITAMIN Branch ORAL) METHYLCELLU 0 Yes Univer s LOSE (FIBER 6-07 ity of THERAPY 11:23: [facility]) 09 Medical Branch DOCUSATE Yes Take by Univer s SODIUM 6-07 mouth. ity of (COLACE 11:23: [place] ORAL) Medical Branch vitamin C Yes 1000mg Take 1,000 [facility] with derrell 6-07 mg by ity of hips 11:23: mouth [place] (VITAMIN C) 09 daily. Medica l 1,000 mg Branch tablet cholecalcif Yes 1000U Take 1,000 [facility] edmar, 6-07 Units by ity of vitamin D3, 11:23: mouth [place] (VITAMIN 09 daily. Medical D3) 1,000 Branch unit tablet CRANBERRY Yes Take by Unive rs FRUIT 6-07 mouth ity of EXTRACT 11:23: daily. [place] ([place] 09 Medical ORAL) Branch CALCIUM Yes Take by [facility] ORAL 6-07 mouth ity of 11:23: daily. [place] Medical Branch DOCOSAHEXAN Yes 1000mg Take 1,000 [facility] OIC 6-07 mg by ity of ACID/EPA 11:23: mouth [place] (FISH OIL 09 daily. Medical ORAL) Branch BIOTIN ORAL Yes Take by Uni vers 6-07 mouth. ity of 11:23: Medical Branch FOLIC ACID 0 Yes Take by Univ ers ORAL 6-07 mouth ity of 11:23: daily. [place] [facility] Branch MULTIVIT 0 Yes Take by Univer s &MINERALS/F 6-07 mouth. ity of ERROUS FUM 11:23: [place] (MULTI 09 Medical VITAMIN Branch ORAL) METHYLCELLU 0 Yes Univer s LOSE (FIBER 6-07 ity of THERAPY 11:23: [facility]) 09 Medical Branch DOCUSATE Yes Take by [facility] SODIUM 6-07 mouth. ity of (COLACE 11:23: [place] ORAL) 09 Medical Branch vitamin C Yes 1000mg Take 1,000 [facility] with derrell 6-07 mg by ity of hips 11:23: mouth [place] (VITAMIN C) 09 daily. Medica l 1,000 mg Branch tablet cholecalcif Yes 1000U Take 1,000 [facility] edmar, 6-07 Units by ity of vitamin D3, 11:23: mouth [place] (VITAMIN 09 daily. Medical D3) 1,000 Branch unit tablet CRANBERRY Yes Take by [facility] rs FRUIT 6-07 mouth ity of EXTRACT 11:23: daily. [place] ([place] 09 Medical ORAL) Branch CALCIUM Yes Take by Univers ORAL 6-07 mouth ity of 11:23: daily. [place] [facility] Branch DOCOSAHEXAN Yes 1000mg Take 1,000 [facility] OIC 6-07 mg by ity of ACID/EPA 11:23: mouth [place] (FISH OIL 09 daily. Medical ORAL) Branch BIOTIN ORAL Yes Take by Uni vers 6-07 mouth. ity of 11:23: [place] [address] Medical Branch FOLIC ACID Yes Take by Univ ers ORAL 6-07 mouth ity of 11:23: daily. [place] [address] Medical Branch MULTIVIT Yes Take by [facility] s &MINERALS/F 6-07 mouth. ity of ERROUS FUM 11:23: [place] (MULTI 09 Medical VITAMIN Branch ORAL) METHYLCELLU Yes [facility] s LOSE (FIBER 6-07 ity of THERAPY 11:23: [facility]) 09 Medical Branch DOCUSATE Yes Take by [facility] SODIUM 6-07 mouth. ity of (COLACE 11:23: [place] ORAL) 09 Medical Branch vitamin C Yes 1000mg Take 1,000 [facility] with derrell 6-07 mg by ity of hips 11:23: mouth [place] (VITAMIN C) 09 daily. Medica l 1,000 mg Branch tablet cholecalcif Yes 1000U Take 1,000 [facility] edmar, 6-07 Units by ity of vitamin D3, 11:23: mouth [place] (VITAMIN 09 daily. Medical D3) 1,000 Branch unit tablet CRANBERRY Yes Take by Unive rs FRUIT 6-07 mouth ity of EXTRACT 11:23: daily. [place] ([place] Medical ORAL) Branch CALCIUM Yes Take by [facility] ORAL 6-07 mouth ity of 11:23: daily. [place] Medical Branch DOCOSAHEXAN Yes 1000mg Take 1,000 [facility] OIC 6-07 mg by ity of ACID/EPA 11:23: mouth [place] (FISH OIL 09 daily. Medical ORAL) Branch BIOTIN ORAL Yes Take by Uni vers 6-07 mouth. ity of 11:23: [place] [facility] Branch FOLIC ACID Yes Take by Univ ers ORAL 6-07 mouth ity of 11:23: daily. [place] [facility] Branch MULTIVIT Yes Take by Univer s &MINERALS/F 6-07 mouth. ity of ERROUS FUM 11:23: [place] (MULTI Medical VITAMIN Branch ORAL) METHYLCELLU Yes Univer s LOSE (FIBER 6-07 ity of THERAPY 11:23: [place] MISC) Medical Branch DOCUSATE Yes Take by Univer s SODIUM 6-07 mouth. ity of (COLACE 11:23: [place] ORAL) Medical Branch vitamin C Yes 1000mg Take 1,000 [facility] with derrell 6-07 mg by ity of hips 11:23: mouth [place] (VITAMIN C) 09 daily. Medica l 1,000 mg Branch tablet cholecalcif Yes 1000U Take 1,000 [facility] edmar, 6-07 Units by ity of vitamin D3, 11:23: mouth [place] (VITAMIN 09 daily. Medical D3) 1,000 Branch unit tablet CRANBERRY Yes Take by Unive rs FRUIT 6-07 mouth ity of EXTRACT 11:23: daily. [place] ([place] Medical ORAL) Branch CALCIUM Yes Take by [facility] ORAL 6-07 mouth ity of 11:23: daily. [place] [facility] DOCOSAHEXAN Yes 1000mg Take 1,000 [facility] OIC 6-07 mg by ity of ACID/EPA 11:23: mouth [place] (FISH OIL 09 daily. Medical ORAL) Branch BIOTIN ORAL Yes Take by Uni vers 6-07 mouth. ity of 11:23: [place] [address] Medical Branch FOLIC ACID Yes Take by Univ ers ORAL 6-07 mouth ity of 11:23: daily. [place] [address] Medical Branch MULTIVIT Yes Take by Univer s &MINERALS/F 6-07 mouth. ity of ERROUS FUM 11:23: [place] ([place] [address] Medical VITAMIN Branch ORAL) METHYLCELLU Yes Univer s LOSE (FIBER 6-07 ity of THERAPY 11:23: [facility]) 09 Medical Branch DOCUSATE Yes Take by Univer s SODIUM 6-07 mouth. ity of (COLACE 11:23: [place] ORAL) 09 Medical Branch vitamin C Yes 1000mg Take 1,000 [facility] with derrell 6-07 mg by ity of hips 11:23: mouth [place] (VITAMIN C) 09 daily. Medica l 1,000 mg Branch tablet cholecalcif Yes 1000U Take 1,000 [facility] edmar, 6-07 Units by ity of vitamin D3, 11:23: mouth [place] (VITAMIN 09 daily. Medical D3) 1,000 Branch unit tablet [place]Y [facility]-07 mouth ity of EXTRACT 11:23: daily. [place] ([place] Medical ORAL) Branch CALCIUM Yes Take by [facility] ORAL 6-07 mouth ity of 11:23: daily. [place] [address] Medical Branch DOCOSAHEXAN Yes 1000mg Take 1,000 [facility] OIC 6-07 mg by ity of ACID/EPA 11:23: mouth [place] (FISH OIL 09 daily. Medical ORAL) Branch BIOTIN ORAL Yes Take by Uni vers 6-07 mouth. ity of 11:23: [place] [address] Medical Branch FOLIC ACID Yes Take by Univ ers ORAL 6-07 mouth ity of 11:23: daily. [place] [address] Medical Branch MULTIVIT Yes Take by Univer s &MINERALS/F 6-07 mouth. ity of ERROUS FUM 11:23: [place] (MULTI Medical VITAMIN Branch ORAL) METHYLCELLU Yes Univer s LOSE (FIBER 6-07 ity of THERAPY 11:23: [place] MIS) 09 Medical Branch DOCUSATE Yes Take by [facility] SODIUM 6-07 mouth. ity of (COLACE 11:23: [place] ORAL) 09 Medical Branch vitamin C Yes 1000mg Take 1,000 [facility] with derrell 6-07 mg by ity of hips 11:23: mouth [place] (VITAMIN C) 09 daily. Medica l 1,000 mg Branch tablet cholecalcif Yes 1000U Take 1,000 [facility] edmar, 6-07 Units by ity of vitamin D3, 11:23: mouth [place] (VITAMIN 09 daily. Medical D3) 1,000 Branch unit tablet [place]AN[place]Y Yes [facility] FR[facility] 6-07 mouth ity of EXTRACT 11:23: daily. [place] ([place] Medical ORAL) Branch CALCIUM Yes Take by [facility] ORAL 6-07 mouth ity of 11:23: daily. [place] [facility] DOCOSAHEXAN Yes 1000mg Take 1,000 [facility] OIC 6-07 mg by ity of ACID/EPA 11:23: mouth [place] (FISH OIL 09 daily. Medical ORAL) Branch BIOTIN ORAL Yes Take by Uni vers 6-07 mouth. ity of 11:23: [place] [address] Medical Branch FOLIC ACID Yes Take by Univ ers ORAL 6-07 mouth ity of 11:23: daily. [place] [facility] MULTIVIT Yes Take by [facility] &MINERALS/F 6-07 mouth. ity of ERROUS FUM 11:23: [place] (MULTI 09 Medical VITAMIN Branch ORAL) METHYLCELLU Yes Univer s LOSE (FIBER 6-07 ity of THERAPY 11:23: [facility]) 09 Medical Branch DOCUSATE Yes Take by [facility] SODIUM 6-07 mouth. ity of (COLACE 11:23: [place] ORAL) 09 Medical Branch vitamin C Yes 1000mg Take 1,000 [facility] with derrell 6-07 mg by ity of hips 11:23: mouth [place] (VITAMIN C) 09 daily. Medica l 1,000 mg Branch tablet cholecalcif Yes 1000U Take 1,000 [facility] edmar, 6-07 Units by ity of vitamin D3, 11:23: mouth [place] (VITAMIN 09 daily. Medical D3) 1,000 Branch unit tablet CRANBERRY Yes Take by [facility] rs FRUIT 6-07 mouth ity of EXTRACT 11:23: daily. [place] ([place] 09 Medical ORAL) Branch CALCIUM Yes Take by [facility] ORAL 6-07 mouth ity of 11:23: daily. [place] [facility] DOCOSAHEXAN Yes 1000mg Take 1,000 [facility] OIC 6-07 mg by ity of ACID/EPA 11:23: mouth [place] (FISH OIL 09 daily. Medical ORAL) Branch BIOTIN ORAL Yes Take by Uni vers 6-07 mouth. ity of 11:23: [place] [facility] FOLIC ACID Yes Take by Univ ers ORAL 6-07 mouth ity of 11:23: daily. [place] [facility] MULTIVIT Yes Take by Univer s &MINERALS/F 6-07 mouth. ity of ERROUS FUM 11:23: [place] (MULTI 09 Medical VITAMIN Branch ORAL) METHYLCELLU Yes Univer s LOSE (FIBER 6-07 ity of THERAPY 11:23: [place] MISC) Medical Branch DOCUSATE Yes Take by Univer s SODIUM 6-07 mouth. ity of (COLACE 11:23: [place] ORAL) Medical Branch vitamin C Yes 1000mg Take 1,000 [facility] with derrell 6-07 mg by ity of hips 11:23: mouth [place] (VITAMIN C) 09 daily. Medica l 1,000 mg Branch tablet cholecalcif Yes 1000U Take 1,000 [facility] edmar, 6-07 Units by ity of vitamin D3, 11:23: mouth [place] (VITAMIN 09 daily. Medical D3) 1,000 Branch unit tablet CRANBERRY Yes Take by Unive rs FRUIT 6-07 mouth ity of EXTRACT 11:23: daily. [place] ([place] 09 Medical ORAL) Branch CALCIUM Yes Take by [facility] ORAL 6-07 mouth ity of 11:23: daily. [place] [facility] DOCOSAHEXAN Yes 1000mg Take 1,000 [facility] OIC 6-07 mg by ity of ACID/EPA 11:23: mouth [place] (FISH OIL 09 daily. Medical ORAL) Branch BIOTIN ORAL Yes Take by Uni vers 6-07 mouth. ity of 11:23: [place] [facility] FOLIC ACID Yes Take by Univ ers ORAL 6-07 mouth ity of 11:23: daily. [place] [address] Medical Branch MULTIVIT Yes Take by Univer s &MINERALS/F 6-07 mouth. ity of ERROUS FUM 11:23: [place] (MULTI 09 Medical VITAMIN Branch ORAL) METHYLCELLU 0 Yes Univer s LOSE (FIBER 6-07 ity of THERAPY 11:23: [facility]) Medical Branch DOCUSATE Yes Take by Univer s SODIUM 6-07 mouth. ity of (COLACE 11:23: [place] ORAL) 09 Medical Branch vitamin C Yes 1000mg Take 1,000 [facility] with derrell 6-07 mg by ity of hips 11:23: mouth [place] (VITAMIN C) 09 daily. Medica l 1,000 mg Branch tablet cholecalcif Yes 1000U Take 1,000 [facility] edmar, 6-07 Units by ity of vitamin D3, 11:23: mouth [place] (VITAMIN 09 daily. Medical D3) 1,000 Branch unit tablet [place]AN[place]Y Yes Take by [facility] rs FRUIT 6-07 mouth ity of EXTRACT 11:23: daily. [place] ([place] 09 Medical ORAL) Branch CALCIUM Yes Take by [facility] ORAL 6-07 mouth ity of 11:23: daily. [place] [address] Medical Branch DOCOSAHEXAN Yes 1000mg Take 1,000 [facility] OIC 6-07 mg by ity of ACID/EPA 11:23: mouth [place] (FISH OIL 09 daily. Medical ORAL) Branch BIOTIN ORAL Yes Take by Uni vers 6-07 mouth. ity of 11:23: [place] [address] Medical Branch FOLIC ACID Yes Take by Univ ers ORAL 6-07 mouth ity of 11:23: daily. [place] [address] Medical Branch MULTIVIT Yes Take by Univer s &MINERALS/F 6-07 mouth. ity of ERROUS FUM 11:23: [place] (MULTI 09 Medical VITAMIN Branch ORAL) METHYLCELLU 0 Yes Univer s LOSE (FIBER 6-07 ity of THERAPY 11:23: [facility]) Medical Branch DOCUSATE Yes Take by Univer s SODIUM 6-07 mouth. ity of (COLACE 11:23: [place] ORAL) 09 Medical Branch vitamin C Yes 1000mg Take 1,000 [facility] with derrell 6-07 mg by ity of hips 11:23: mouth [place] (VITAMIN C) 09 daily. Medica l 1,000 mg Branch tablet cholecalcif 0 Yes 1000U Take 1,000 [facility] edmar, 6-07 Units by ity of vitamin D3, 11:23: mouth [place] (VITAMIN 09 daily. Medical D3) 1,000 Branch unit tablet CRANBERRY 2021-0 Yes Take by Unive rs FRUIT 6-07 mouth ity of EXTRACT 11:23: daily. [place] ([place] Medical ORAL) Branch CALCIUM 0 Yes Take by [facility] ORAL 6-07 mouth ity of 11:23: daily. [place] [facility] DOCOSAHEXAN Yes 1000mg Take 1,000 [facility] OIC 6-07 mg by ity of ACID/EPA 11:23: mouth [place] (FISH OIL 09 daily. Medical ORAL) Branch BIOTIN ORAL Yes Take by Uni vers 6-07 mouth. ity of 11:23: [place] [address] Medical Branch FOLIC ACID Yes Take by Univ ers ORAL 6-07 mouth ity of 11:23: daily. [place] [facility] MULTIVIT Yes Take by [facility] &MINERALS/F 6-07 mouth. ity of ERROUS FUM 11:23: [place] (MULTI 09 Medical VITAMIN Branch ORAL) METHYLCELLU Yes [facility] s LOSE (FIBER 6-07 ity of THERAPY 11:23: [place] MISC) 09 Medical Branch DOCUSATE Yes Take by [facility] SODIUM 6-07 mouth. ity of (COLACE 11:23: [place] ORAL) 09 Medical Branch vitamin C Yes 1000mg Take 1,000 [facility] with derrell 6-07 mg by ity of hips 11:23: mouth [place] (VITAMIN C) 09 daily. Medica l 1,000 mg Branch tablet cholecalcif 2021-0 Yes 1000U Take 1,000 [facility] edmar, 6-07 Units by ity of vitamin D3, 11:23: mouth [place] (VITAMIN 09 daily. Medical D3) 1,000 Branch unit tablet [place]AN[place]Y 2021-0 Yes Take by Unive rs FRUIT 6-07 mouth ity of EXTRACT 11:23: daily. [place] ([place] Medical ORAL) Branch CALCIUM 0 Yes Take by [facility] ORAL 6-07 mouth ity of 11:23: daily. [place] [facility] DOCOSAHEXAN Yes 1000mg Take 1,000 [facility] OIC 6-07 mg by ity of ACID/EPA 11:23: mouth [place] (FISH OIL 09 daily. Medical ORAL) Branch BIOTIN ORAL Yes Take by Uni vers 6-07 mouth. ity of 11:23: Medical Branch FOLIC ACID Yes Take by Univ ers ORAL 6-07 mouth ity of 11:23: daily. [place] [facility] MULTIVIT Yes Take by Univer s &MINERALS/F 6-07 mouth. ity of ERROUS FUM 11:23: [place] (MULTI 09 Medical VITAMIN Branch ORAL) METHYLCELLU Yes [facility] LOSE (FIBER 6-07 ity of THERAPY 11:23: [place] MISC) 09 Medical Branch DOCUSATE Yes Take by Univer s SODIUM 6-07 mouth. ity of (COLACE 11:23: [place] ORAL) 09 Medical Branch vitamin C Yes 1000mg Take 1,000 [facility] with derrell 6-07 mg by ity of hips 11:23: mouth [place] (VITAMIN C) 09 daily. Medica l 1,000 mg Branch tablet cholecalcif Yes 1000U Take 1,000 [facility] edmar, 6-07 Units by ity of vitamin D3, 11:23: mouth [place] (VITAMIN 09 daily. Medical D3) 1,000 Branch unit tablet [place]AN[place]Y Yes Take by Unive rs FRUIT 6-07 mouth ity of EXTRACT 11:23: daily. [place] ([place] Medical ORAL) Branch CALCIUM Yes Take by Univers ORAL 6-07 mouth ity of 11:23: daily. [place] [facility] DOCOSAHEXAN Yes 1000mg Take 1,000 [facility] OIC 6-07 mg by ity of ACID/EPA 11:23: mouth [place] (FISH OIL 09 daily. Medical ORAL) Branch BIOTIN ORAL Yes Take by Uni vers 6-07 mouth. ity of 11:23: Medical Branch FOLIC ACID Yes Take by Univ ers ORAL 6-07 mouth ity of 11:23: daily. Medical Branch MULTIVIT Yes Take by Univer s &MINERALS/F 6-07 mouth. ity of ERROUS FUM 11:23: [place] (MULTI 09 Medical VITAMIN Branch ORAL) METHYLCELLU 0 Yes Univer s LOSE (FIBER 6-07 ity of THERAPY 11:23: [facility]) 09 Medical Branch DOCUSATE Yes Take by [...] by ity of vitamin D3, 11:23: mouth [place] (VITAMIN 09 daily. Medical D3) 1,000 Branch unit tablet [place]ANB[place]Y Yes Take by Unive rs FRUIT 6-07 mouth ity of EXTRACT 11:23: daily. [place] ([place] 09 Medical ORAL) Branch CALCIUM Yes Take by [facility] ORAL 6-07 mouth ity of 11:23: daily. [place] [facility] DOCOSAHEXAN Yes 1000mg Take 1,000 [facility] OIC 6-07 mg by ity of ACID/EPA 11:23: mouth [place] (FISH OIL 09 daily. Medical ORAL) Branch BIOTIN ORAL Yes Take by Uni vers 6-07 mouth. ity of 11:23: [place] [address] Medical Branch FOLIC ACID Yes Take by Univ ers ORAL 6-07 mouth ity of 11:23: daily. [place] [address] Medical Branch MULTIVIT Yes Take by Univer s &MINERALS/F 6-07 mouth. ity of ERROUS FUM 11:23: [place] (MULTI 09 Medical VITAMIN Branch ORAL) METHYLCELLU 0 Yes Univer s LOSE (FIBER 6-07 ity of THERAPY 11:23: [facility]) 09 Medical Branch DOCUSATE Yes Take by [...] by ity of vitamin D3, 11:23: mouth [place] (VITAMIN 09 daily. Medical D3) 1,000 Branch unit tablet [place] [facility] 6-07 mouth ity of EXTRACT 11:23: daily. [place] ([place] Medical ORAL) Branch CALCIUM Yes Take by Univers ORAL 6-07 mouth ity of 11:23: daily. [place] [facility] DOCOSAHEXAN Yes 1000mg Take 1,000 [facility] OIC 6-07 mg by ity of ACID/EPA 11:23: mouth [place] (FISH OIL 09 daily. Medical ORAL) Branch BIOTIN ORAL Yes Take by Uni vers 6-07 mouth. ity of 11:23: [place] [facility] FOLIC ACID Yes Take by Univ ers ORAL 6-07 mouth ity of 11:23: daily. [place] [facility] MULTIVIT Yes Take by [facility] s &MINERALS/F 6-07 mouth. ity of ERROUS FUM 11:23: [place] (MULTI 09 Medical VITAMIN Branch ORAL) METHYLCELLU Yes [facility] LOSE (FIBER 6-07 ity of THERAPY 11:23: [place] MISC) 09 Medical Branch DOCUSATE Yes Take by [facility] s SODIUM 6-07 mouth. ity of (COLACE 11:23: [place] ORAL) 09 Medical Branch vitamin C Yes 1000mg Take 1,000 [facility] with derrell 6-07 mg by ity of hips 11:23: mouth [place] (VITAMIN C) 09 daily. Medica l 1,000 mg Branch tablet cholecalcif Yes 1000U Take 1,000 [facility] edmar, 6-07 Units by ity of vitamin D3, 11:23: mouth [place] (VITAMIN 09 daily. Medical D3) 1,000 Branch unit tablet [place] Yes Take [facility] FRUIT 6-07 mouth ity of EXTRACT 11:23: daily. [place] ([place] 09 Medical ORAL) Branch CALCIUM Yes Take by Univers ORAL 6-07 mouth ity of 11:23: daily. [place] [facility] DOCOSAHEXAN Yes 1000mg Take 1,000 [facility] OIC 6-07 mg by ity of ACID/EPA 11:23: mouth [place] (FISH OIL 09 daily. Medical ORAL) Branch BIOTIN ORAL Yes Take by Uni vers 6-07 mouth. ity of 11:23: Medical Branch FOLIC ACID Yes Take by Univ ers ORAL 6-07 mouth ity of 11:23: daily. [place] [facility] MULTIVIT Yes Take by Univer s &MINERALS/F 6-07 mouth. ity of ERROUS FUM 11:23: [place] (MULTI 09 Medical VITAMIN Branch ORAL) METHYLCELLU 0 Yes Univer s LOSE (FIBER 6-07 ity of THERAPY 11:23: [place] MISC) 09 Medical Branch DOCUSATE Yes Take by Univer s SODIUM 6-07 mouth. ity of (COLACE 11:23: [place] ORAL) 09 Medical Branch vitamin C Yes 1000mg Take 1,000 [facility] with derrell 6-07 mg by ity of hips 11:23: mouth [place] (VITAMIN C) 09 daily. Medica l 1,000 mg Branch tablet cholecalcif Yes 1000U Take 1,000 [facility] edmar, 6-07 Units by ity of vitamin D3, 11:23: mouth [place] (VITAMIN 09 daily. Medical D3) 1,000 Branch unit tablet [place]AN[place]Y Yes Take by Unive rs FRUIT 6-07 mouth ity of EXTRACT 11:23: daily. [place] ([place] 09 Medical ORAL) Branch CALCIUM Yes Take by Univers ORAL 6-07 mouth ity of 11:23: daily. Medical Branch DOCOSAHEXAN Yes 1000mg Take 1,000 [facility] OIC 6-07 mg by ity of ACID/EPA 11:23: mouth [place] (FISH OIL 09 daily. Medical ORAL) Branch BIOTIN ORAL Yes Take by Uni vers 6-07 mouth. ity of 11:23: Medical Branch FOLIC ACID Yes Take by Univ ers ORAL 6-07 mouth ity of 11:23: daily. [place] [facility] MULTIVIT Yes Take by Univer s &MINERALS/F 6-07 mouth. ity of ERROUS FUM 11:23: [place] (MULTI 09 Medical VITAMIN Branch ORAL) METHYLCELLU 0 Yes Univer s LOSE (FIBER 6-07 ity of THERAPY 11:23: [place] MISC) 09 Medical Branch DOCUSATE Yes Take by [facility] SODIUM 6-07 mouth. ity of (COLACE 11:23: [place] ORAL) 09 Medical Branch vitamin C Yes 1000mg Take 1,000 [facility] with derrell 6-07 mg by ity of hips 11:23: mouth [place] (VITAMIN C) 09 daily. Medica l 1,000 mg Branch tablet cholecalcif Yes 1000U Take 1,000 [facility] edmar, 6-07 Units by ity of vitamin D3, 11:23: mouth [place] (VITAMIN 09 daily. Medical D3) 1,000 Branch unit tablet [place]AN[place]Y Yes Take by [facility] rs FRUIT 6-07 mouth ity of EXTRACT 11:23: daily. [place] ([place] 09 Medical ORAL) Branch CALCIUM Yes Take by Univers ORAL 6-07 mouth ity of 11:23: daily. [place] [facility] DOCOSAHEXAN Yes 1000mg Take 1,000 [facility] OIC 6-07 mg by ity of ACID/EPA 11:23: mouth [place] (FISH OIL 09 daily. Medical ORAL) Branch BIOTIN ORAL Yes Take by Uni vers 6-07 mouth. ity of 11:23: [place] [address] Medical Branch FOLIC ACID Yes Take by Univ ers ORAL 6-07 mouth ity of 11:23: daily. [place] [address] Medical Branch MULTIVIT Yes Take by [facility] &MINERALS/F 6-07 mouth. ity of ERROUS FUM 11:23: [place] (MULTI 09 Medical VITAMIN Branch ORAL) METHYLCELLU 0 Yes Univer s LOSE (FIBER 6-07 ity of THERAPY 11:23: [facility]) 09 Medical Branch DOCUSATE Yes Take by [facility] SODIUM 6-07 mouth. ity of (COLACE 11:23: [place] ORAL) 09 Medical Branch vitamin C Yes 1000mg Take 1,000 [facility] with derrell 6-07 mg by ity of hips 11:23: mouth [place] (VITAMIN C) 09 daily. Medica l 1,000 mg Branch tablet cholecalcif 0 Yes 1000U Take 1,000 [facility] edmar, 6-07 Units by ity of vitamin D3, 11:23: mouth [place] (VITAMIN 09 daily. Medical D3) 1,000 Branch unit tablet CRANBERRY Yes Take by Unive rs FRUIT 6 mouth ity of EXTRACT 11:23: daily. [place] ([place] Medical ORAL) Branch CALCIUM Yes Take by Univers ORAL 6 mouth ity of 11:23: daily. [place] [facility] DOCOSAHEXAN Yes 1000mg Take 1,000 [facility] OIC 6-07 mg by ity of ACID/EPA 11:23: mouth [place] (FISH OIL 09 daily. Medical ORAL) Branch BIOTIN ORAL Yes Take by Uni vers 6-07 mouth. ity of 11:23: [place] 09 Medical Branch FOLIC ACID Yes Take by Univ ers ORAL 6- mouth ity of 11:58: daily. [place] 16 Medical Branch MULTIVIT Yes Take by Univer s &MINERALS/F 6- mouth. ity of ERROUS FUM 11:58: [place] (MULTI 16 Medical VITAMIN Branch ORAL) METHYLCELLU Yes Univer s LOSE (FIBER 6- ity of THERAPY 11:58: [place] MISC) 16 Medical Branch DOCUSATE Yes Take by Univer s SODIUM 6-01 mouth. ity of (COLACE 11:58: [place] ORAL) 16 Medical Branch vitamin C Yes 1000mg Take 1,000 [facility] with derrell 6-01 mg by ity of hips 11:58: mouth [place] (VITAMIN C) 16 daily. Medica l 1,000 mg Branch tablet cholecalcif Yes 1000U Take 1,000 [facility] edmar, 6-01 Units by ity of vitamin D3, 11:58: mouth [place] (VITAMIN 16 daily. Medical D3) 1,000 Branch unit tablet CRANBERRY Yes Take by Unive rs FRUIT 6- mouth ity of EXTRACT 11:58: daily. [place] ([place] 16 Medical ORAL) Branch CALCIUM Yes Take by Univers ORAL 6- mouth ity of 11:58: daily. [place] 16 Medical Branch DOCOSAHEXAN Yes 1000mg Take 1,000 [facility] OIC 6-01 mg by ity of ACID/EPA 11:58: mouth [place] (FISH OIL 16 daily. Medical ORAL) Branch BIOTIN ORAL Yes Take by Uni vers 6-01 mouth. ity of 11:58: [place] 16 Medical Branch metformin 2021-0 Yes [id number] 500mg Take 1 U nivers ER 500 mg 5-31 tablet by ity o f 24 hr 00:00: mouth [place] tablet 00 daily with Medical breakfast. Branch STOP REGULAR METFORMIN. metformin 2021-0 Yes [id number] 500mg Take 1 U nivers ER 500 mg 5-31 tablet by ity o f 24 hr 00:00: mouth [place] tablet 00 daily with Medical breakfast. Branch STOP REGULAR METFORMIN. metformin 2021-0 Yes [id number] 500mg Take 1 U nivers ER 500 mg 5-31 tablet by ity o f 24 hr 00:00: mouth [place] tablet 00 daily with Medical breakfast. Branch STOP REGULAR METFORMIN. metformin 2021-0 Yes [id number] 500mg Take 1 U nivers ER 500 mg 5-31 tablet by ity o f 24 hr 00:00: mouth [place] tablet 00 daily with Medical breakfast. Branch STOP REGULAR METFORMIN. metformin 2021-0 Yes [id number] 500mg Take 1 U nivers ER 500 mg 5-31 tablet by ity o f 24 hr 00:00: mouth [place] tablet 00 daily with Medical breakfast. Branch STOP REGULAR METFORMIN. metformin 2021-0 Yes [id number] 500mg Take 1 U nivers ER 500 mg 5-31 tablet by ity o f 24 hr 00:00: mouth [place] tablet 00 daily with Medical breakfast. Branch STOP REGULAR METFORMIN. metformin 2021-0 Yes [id number] 500mg Take 1 U nivers ER 500 mg 5-31 tablet by ity o f 24 hr 00:00: mouth [place] tablet 00 daily with Medical breakfast. Branch STOP REGULAR METFORMIN. metformin 2021-0 Yes [id number] 500mg Take 1 U nivers ER 500 mg 5-31 tablet by ity o f 24 hr 00:00: mouth [place] tablet 00 daily with Medical breakfast. Branch STOP REGULAR METFORMIN. metformin 2021-0 Yes [id number] 500mg Take 1 U nivers ER 500 mg 5-31 tablet by ity o f 24 hr 00:00: mouth [place] tablet 00 daily with Medical breakfast. Branch STOP REGULAR METFORMIN. metformin 2021-0 Yes [id number] 500mg Take 1 U nivers ER 500 mg 5-31 tablet by ity o f 24 hr 00:00: mouth [place] tablet 00 daily with Medical breakfast. Branch STOP REGULAR METFORMIN. metformin 2021-0 Yes [id number] 500mg Take 1 U nivers ER 500 mg 5-31 tablet by ity o f 24 hr 00:00: mouth [place] tablet 00 daily with Medical breakfast. Branch STOP REGULAR METFORMIN. metformin 2021-0 Yes [id number] 500mg Take 1 U nivers ER 500 mg 5-31 tablet by ity o f 24 hr 00:00: mouth [place] tablet 00 daily with Medical breakfast. Branch STOP REGULAR METFORMIN. metformin 2021-0 Yes [id number] 500mg Take 1 U nivers ER 500 mg 5-31 tablet by ity o f 24 hr 00:00: mouth [place] tablet 00 daily with Medical breakfast. Branch STOP REGULAR METFORMIN. metformin 2021-0 Yes [id number] 500mg Take 1 U nivers ER 500 mg 5-31 tablet by ity o f 24 hr 00:00: mouth [place] tablet 00 daily with Medical breakfast. Branch STOP REGULAR METFORMIN. metformin 2021-0 Yes [id number] 500mg Take 1 U nivers ER 500 mg 5-31 tablet by ity o f 24 hr 00:00: mouth [place] tablet 00 daily with Medical breakfast. Branch STOP REGULAR METFORMIN. metformin 2021-0 Yes [id number] 500mg Take 1 U nivers ER 500 mg 5-31 tablet by ity o f 24 hr 00:00: mouth [place] tablet 00 daily with Medical breakfast. Branch STOP REGULAR METFORMIN. metformin 2021-0 Yes [id number] 500mg Take 1 U nivers ER 500 mg 5-31 tablet by ity o f 24 hr 00:00: mouth [place] tablet 00 daily with Medical breakfast. Branch STOP REGULAR METFORMIN. metformin 2021-0 Yes [id number] 500mg Take 1 U nivers ER 500 mg 5-31 tablet by ity o f 24 hr 00:00: mouth [place] tablet 00 daily with Medical breakfast. Branch STOP REGULAR METFORMIN. metformin 2021-0 Yes [id number] 500mg Take 1 U nivers ER 500 mg 5-31 tablet by ity o f 24 hr 00:00: mouth [place] tablet 00 daily with Medical breakfast. Branch STOP REGULAR METFORMIN. metformin 2021-0 Yes [id number] 500mg Take 1 U nivers ER 500 mg 5-31 tablet by ity o f 24 hr 00:00: mouth [place] tablet 00 daily with Medical breakfast. Branch STOP REGULAR METFORMIN. metformin 2021-0 Yes [id number] 500mg Take 1 U nivers ER 500 mg 5-31 tablet by ity o f 24 hr 00:00: mouth [place] tablet 00 daily with Medical breakfast. Branch STOP REGULAR METFORMIN. metformin 2021-0 Yes [id number] 500mg Take 1 U nivers ER 500 mg 5-31 tablet by ity o f 24 hr 00:00: mouth [place] tablet 00 daily with Medical breakfast. Branch STOP REGULAR METFORMIN. metformin 2021-0 Yes [id number] 500mg Take 1 U nivers ER 500 mg 5-31 tablet by ity o f 24 hr 00:00: mouth [place] tablet 00 daily with Medical breakfast. Branch STOP REGULAR METFORMIN. metformin 2021-0 Yes [id number] 500mg Take 1 U nivers ER 500 mg 5-31 tablet by ity o f 24 hr 00:00: mouth [place] tablet 00 daily with Medical breakfast. Branch STOP REGULAR METFORMIN. metformin 2021-0 Yes [id number] 500mg Take 1 U nivers ER 500 mg 5-31 tablet by ity o f 24 hr 00:00: mouth [place] tablet 00 daily with Medical breakfast. Branch STOP REGULAR METFORMIN. metformin 2021-0 Yes [id number] 500mg Take 1 U nivers ER 500 mg 5-31 tablet by ity o f 24 hr 00:00: mouth [place] tablet 00 daily with Medical breakfast. Branch STOP REGULAR METFORMIN. metformin 2021-0 Yes [id number] 500mg Take 1 U nivers ER 500 mg 5-31 tablet by ity o f 24 hr 00:00: mouth [place] tablet 00 daily with Medical breakfast. Branch STOP REGULAR METFORMIN. metformin 2021-0 Yes [id number] 500mg Take 1 U nivers ER 500 mg 5-31 tablet by ity o f 24 hr 00:00: mouth [place] tablet 00 daily with Medical breakfast. Branch STOP REGULAR METFORMIN. metformin 2021-0 Yes [id number] 500mg Take 1 U nivers ER 500 mg 5-31 tablet by ity o f 24 hr 00:00: mouth [place] tablet 00 daily with Medical breakfast. Branch STOP REGULAR METFORMIN. metformin 2021-0 Yes [id number] 500mg Take 1 U nivers ER 500 mg 5-31 tablet by ity o f 24 hr 00:00: mouth [place] tablet 00 daily with Medical breakfast. Branch STOP REGULAR METFORMIN. metformin 2021-0 Yes [id number] 500mg Take 1 U nivers ER 500 mg 5-31 tablet by ity o f 24 hr 00:00: mouth [place] tablet 00 daily with Medical breakfast. Branch STOP REGULAR METFORMIN. metformin 2021-0 Yes [id number] 500mg Take 1 U nivers ER 500 mg 5-31 tablet by ity o f 24 hr 00:00: mouth [place] tablet 00 daily with Medical breakfast. Branch STOP REGULAR METFORMIN. metformin 2021-0 Yes [id number] 500mg Take 1 U nivers ER 500 mg 5-31 tablet by ity o f 24 hr 00:00: mouth [place] tablet 00 daily with Medical breakfast. Branch STOP REGULAR METFORMIN. metformin 2021-0 Yes [id number] 500mg Take 1 [facility] 500 mg 5-31 tablet by [facility] f 24 hr 00:00: mouth [place] tablet 00 daily with Medical breakfast. Branch STOP REGULAR METFORMIN. metformin 2021-0 Yes [id number] 500mg Take 1 [facility] 500 mg 5-31 tablet by [facility] f 24 hr 00:00: mouth [place] tablet 00 daily with Medical breakfast. Branch STOP REGULAR METFORMIN. metformin 2021-0 Yes [id number] 500mg Take 1 [facility] 500 mg 5-31 tablet by [facility] f 24 hr 00:00: mouth [place] tablet 00 daily with Medical breakfast. Branch STOP REGULAR METFORMIN. metformin 2021-0 Yes [id number] 500mg Take 1 [facility] 500 mg 5-31 tablet by [facility] f 24 hr 00:00: mouth [place] tablet 00 daily with Medical breakfast. Branch STOP REGULAR METFORMIN. metformin 2021-0 Yes [id number] 500mg Take 1 [facility] 500 mg 5-31 tablet by [facility] f 24 hr 00:00: mouth [place] tablet 00 daily with Medical breakfast. Branch STOP REGULAR METFORMIN. metformin 2021-0 Yes [id number] 500mg Take 1 [facility] 500 mg 5-31 tablet by [facility] f 24 hr 00:00: mouth [place] tablet 00 daily with Medical breakfast. Branch STOP REGULAR METFORMIN. metformin 2021-0 Yes [id number] 500mg Take 1 [facility] 500 mg 5-31 tablet by [facility] f 24 hr 00:00: mouth [place] tablet 00 daily with Medical breakfast. Branch STOP REGULAR METFORMIN. metformin 2021-0 Yes [id number] 500mg Take 1 [facility] 500 mg 5-31 tablet by [facility] f 24 hr 00:00: mouth [place] tablet 00 daily with Medical breakfast. Branch STOP REGULAR METFORMIN. metformin 2021-0 Yes [id number] 500mg Take 1 [facility] 500 mg 5-31 tablet by [facility] o f 24 hr 00:00: mouth [place] tablet 00 daily with Medical breakfast. Branch STOP REGULAR METFORMIN. metformin 2021-0 Yes [id number] 500mg Take 1 [facility] 500 mg 5-31 tablet by [facility] f 24 hr 00:00: mouth [place] tablet 00 daily with Medical breakfast. Branch STOP REGULAR METFORMIN. metformin 2021-0 Yes [id number] 500mg Take 1 [facility] 500 mg 5-31 tablet by [facility] o f 24 hr 00:00: mouth [place] tablet 00 daily with Medical breakfast. Branch STOP REGULAR METFORMIN. metformin 2021-0 Yes [id number] 500mg Take 1 [facility] 500 mg 5-31 tablet by [facility] o f 24 hr 00:00: mouth [place] tablet 00 daily with Medical breakfast. Branch STOP REGULAR METFORMIN. metformin 2021-0 Yes [id number] 500mg Take 1 [facility] 500 mg 5-31 tablet by [facility] f 24 hr 00:00: mouth [place] tablet 00 daily with Medical breakfast. Branch STOP REGULAR METFORMIN. metformin 2021-0 Yes [id number] 500mg Take 1 [facility] 500 mg 5-31 tablet by [facility] f 24 hr 00:00: mouth [place] tablet 00 daily with Medical breakfast. Branch STOP REGULAR METFORMIN. metformin 2021-0 Yes [id number] 500mg Take 1 [facility] 500 mg 5-31 tablet by [facility] f 24 hr 00:00: mouth [place] tablet 00 daily with Medical breakfast. Branch STOP REGULAR METFORMIN. metformin 2021-0 2022- No [id number] 500mg Take 1 [facility] 500 mg 5-31 10-13 tablet by [facility] 24 hr 00:00: 00:00 mouth [place] tablet 00 :00 daily with Medical breakfast. Branch STOP REGULAR METFORMIN. ibuprofen 2021-0 Yes [id number] 600mg Take 1 [facility] 600 mg 5-19 [id number] tablet by [facility] tablet 00:00: mouth [place] 00 every 6 Medical (six) Branch hours as needed for Pain (scale 4-6). ibuprofen 2021-0 Yes [id number] 600mg Take 1 [facility] 600 mg 5-19 [id number] tablet by [facility] tablet 00:00: mouth [place] 00 every 6 Medical (six) Branch hours as needed for Pain (scale 4-6). ibuprofen 2022-0 Yes [id number] 600mg Take 1 [facility] 600 mg 5-19 [id number] tablet by [facility] tablet 00:00: mouth [place] 00 every 6 Medical (six) Branch hours as needed for Pain (scale 4-6). ibuprofen 2022-0 Yes [id number] 600mg Take 1 [facility] 600 mg 5-19 [id number] tablet by [facility] tablet 00:00: mouth [place] 00 every 6 Medical (six) Branch hours as needed for Pain (scale 4-6). ibuprofen 2022-0 Yes [id number] 600mg Take 1 [facility] 600 mg 5-19 [id number] tablet by [facility] of tablet 00:00: mouth [place] 00 every 6 Medical (six) Branch hours as needed for Pain (scale 4-6). ibuprofen 2022-0 Yes [id number] 600mg Take 1 [facility] 600 mg 5-19 [id number] tablet by [facility] of tablet 00:00: mouth [place] 00 every 6 Medical (six) Branch hours as needed for Pain (scale 4-6). ibuprofen 2022-0 Yes [id number] 600mg Take 1 [facility] 600 mg 5-19 [id number] tablet by [facility] tablet 00:00: mouth [place] 00 every 6 Medical (six) Branch hours as needed for Pain (scale 4-6). ibuprofen 2022-0 Yes [id number] 600mg Take 1 [facility] 600 mg 5-19 [id number] tablet by [facility] of tablet 00:00: mouth [place] 00 every 6 Medical (six) Branch hours as needed for Pain (scale 4-6). ibuprofen 2022-0 Yes [id number] 600mg Take 1 [facility] 600 mg 5-19 [id number] tablet by [facility] of tablet 00:00: mouth [place] 00 every 6 Medical (six) Branch hours as needed for Pain (scale 4-6). ibuprofen 2022-0 Yes [id number] 600mg Take 1 [facility] 600 mg 5-19 [id number] tablet by [facility] tablet 00:00: mouth [place] 00 every 6 Medical (six) Branch hours as needed for Pain (scale 4-6). ibuprofen 2022-0 Yes [id number] 600mg Take 1 [facility] 600 mg 5-19 [id number] tablet by [facility] tablet 00:00: mouth [place] 00 every 6 Medical (six) Branch hours as needed for Pain (scale 4-6). ibuprofen 2022-0 Yes [id number] 600mg Take 1 [facility] 600 mg 5-19 [id number] tablet by [facility] tablet 00:00: mouth [place] 00 every 6 Medical (six) Branch hours as needed for Pain (scale 4-6). ibuprofen 2022-0 Yes [id number] 600mg Take 1 [facility] 600 mg 5-19 [id number] tablet by [facility] of tablet 00:00: mouth [place] 00 every 6 Medical (six) Branch hours as needed for Pain (scale 4-6). ibuprofen 2022-0 Yes [id number] 600mg Take 1 [facility] 600 mg 5-19 [id number] tablet by [facility] of tablet 00:00: mouth [place] 00 every 6 Medical (six) Branch hours as needed for Pain (scale 4-6). ibuprofen 2022-0 Yes [id number] 600mg Take 1 [facility] 600 mg 5-19 [id number] tablet by [facility] tablet 00:00: mouth [place] 00 every 6 Medical (six) Branch hours as needed for Pain (scale 4-6). ibuprofen 2022-0 Yes [id number] 600mg Take 1 [facility] 600 mg 5-19 [id number] tablet by [facility] tablet 00:00: mouth [place] 00 every 6 Medical (six) Branch hours as needed for Pain (scale 4-6). ibuprofen 2022-0 Yes [id number] 600mg Take 1 [facility] 600 mg 5-19 [id number] tablet by [facility] tablet 00:00: mouth [place] 00 every 6 Medical (six) Branch hours as needed for Pain (scale 4-6). ibuprofen 2022-0 Yes [id number] 600mg Take 1 [facility] 600 mg 5-19 [id number] tablet by [facility] of tablet 00:00: mouth [place] 00 every 6 Medical (six) Branch hours as needed for Pain (scale 4-6). ibuprofen 2022-0 Yes [id number] 600mg Take 1 [facility] 600 mg 5-19 [id number] tablet by [facility] of tablet 00:00: mouth [place] 00 every 6 Medical (six) Branch hours as needed for Pain (scale 4-6). ibuprofen 2022-0 Yes [id number] 600mg Take 1 [facility] 600 mg 5-19 [id number] tablet by [facility] tablet 00:00: mouth [place] 00 every 6 Medical (six) Branch hours as needed for Pain (scale 4-6). ibuprofen 2022-0 Yes [id number] 600mg Take 1 [facility] 600 mg 5-19 [id number] tablet by [facility] of tablet 00:00: mouth [place] 00 every 6 Medical (six) Branch hours as needed for Pain (scale 4-6). ibuprofen 2022-0 Yes [id number] 600mg Take 1 [facility] 600 mg 5-19 [id number] tablet by [facility] of tablet 00:00: mouth [place] 00 every 6 Medical (six) Branch hours as needed for Pain (scale 4-6). ibuprofen 2022-0 Yes [id number] 600mg Take 1 [facility] 600 mg 5-19 [id number] tablet by [facility] of tablet 00:00: mouth [place] 00 every 6 Medical (six) Branch hours as needed for Pain (scale 4-6). ibuprofen 2022-0 Yes [id number] 600mg Take 1 [facility] 600 mg 5-19 [id number] tablet by [facility] of tablet 00:00: mouth [place] 00 every 6 Medical (six) Branch hours as needed for Pain (scale 4-6). ibuprofen 2022-0 Yes [id number] 600mg Take 1 [facility] 600 mg 5-19 [id number] tablet by [facility] tablet 00:00: mouth [place] 00 every 6 Medical (six) Branch hours as needed for Pain (scale 4-6). ibuprofen 2022-0 Yes [id number] 600mg Take 1 [facility] 600 mg 5-19 [id number] tablet by [facility] of tablet 00:00: mouth [place] 00 every 6 Medical (six) Branch hours as needed for Pain (scale 4-6). ibuprofen 2022-0 Yes [id number] 600mg Take 1 [facility] 600 mg 5-19 [id number] tablet by [facility] of tablet 00:00: mouth [place] 00 every 6 Medical (six) Branch hours as needed for Pain (scale 4-6). ibuprofen 2022-0 Yes [id number] 600mg Take 1 [facility] 600 mg 5-19 [id number] tablet by [facility] tablet 00:00: mouth [place] 00 every 6 Medical (six) Branch hours as needed for Pain (scale 4-6). ibuprofen 2022-0 Yes [id number] 600mg Take 1 [facility] 600 mg 5-19 [id number] tablet by [facility] of tablet 00:00: mouth [place] 00 every 6 Medical (six) Branch hours as needed for Pain (scale 4-6). ibuprofen 2022-0 Yes [id number] 600mg Take 1 [facility] 600 mg 5-19 [id number] tablet by [facility] of tablet 00:00: mouth [place] 00 every 6 Medical (six) Branch hours as needed for Pain (scale 4-6). ibuprofen 2021-0 Yes [id number] 600mg Take 1 [facility] 600 mg 5-19 [id number] tablet by [facility] tablet 00:00: mouth [place] 00 every 6 Medical (six) Branch hours as needed for Pain (scale 4-6). ibuprofen 2021-0 Yes [id number] 600mg Take 1 [facility] 600 mg 5-19 [id number] tablet by [facility] of tablet 00:00: mouth [place] 00 every 6 Medical (six) Branch hours as needed for Pain (scale 4-6). ibuprofen 2021-0 Yes [id number] 600mg Take 1 [facility] 600 mg 5-19 [id number] tablet by [facility] of tablet 00:00: mouth [place] 00 every 6 Medical (six) Branch hours as needed for Pain (scale 4-6). ibuprofen 2021-0 Yes [id number] 600mg Take 1 [facility] 600 mg 5-19 [id number] tablet by [facility] of tablet 00:00: mouth [place] 00 every 6 Medical (six) Branch hours as needed for Pain (scale 4-6). ibuprofen 2021-0 Yes [id number] 600mg Take 1 [facility] 600 mg 5-19 [id number] tablet by [facility] of tablet 00:00: mouth [place] 00 every 6 Medical (six) Branch hours as needed for Pain (scale 4-6). ibuprofen 2021-0 Yes [id number] 600mg Take 1 [facility] 600 mg 5-19 [id number] tablet by [facility] of tablet 00:00: mouth [place] 00 every 6 Medical (six) Branch hours as needed for Pain (scale 4-6). ibuprofen 2021-0 2022- No [id number] 600mg Take 1 [facility] 600 mg 5-19 - [id number] tablet by [facility] o f tablet 00:00: 00:00 mouth [place] 00 :00 every 6 Medical (six) Branch hours as needed for Pain (scale 4-6). ibuprofen 2022-0 2022- No [id number] 600mg Take 1 [facility] 600 mg 5-19 - [id number] tablet by [facility] o f tablet 00:00: 00:00 mouth [place] 00 :00 every 6 Medical (six) Branch hours as needed for Pain (scale 4-6). ibuprofen 2021-0 2022- No [id number] 600mg Take 1 [facility] 600 mg 02-11 [id number] tablet by [facility] o f tablet 00:00: 00:00 mouth [place] 00 :00 every 6 Medical (six) Branch hours as needed for Pain (scale 4-6). topiramate 2021-0 Yes [id number] 50mg Take 2 [facility] 25 mg 5-16 tablets by [facility] of tablet 00:00: mouth (two) Medical times Branch daily. topiramate 2021-0 Yes [id number] 50mg Take 2 [facility] 25 mg 5-16 tablets by [facility] of tablet 00:00: mouth (two) Medical times Branch daily. topiramate 2021-0 Yes [id number] 50mg Take 2 [facility] 25 mg 5-16 tablets by [facility] of tablet 00:00: mouth (two) Medical times Branch daily. topiramate 2021-0 Yes [id number] 50mg Take 2 [facility] 25 mg 5-16 tablets by [facility] of tablet 00:00: mouth (two) Medical times Branch daily. topiramate 2021-0 Yes [id number] 50mg Take 2 [facility] 25 mg 5-16 tablets by [facility] of tablet 00:00: mouth (two) Medical times Branch daily. topiramate 2021-0 Yes [id number] 50mg Take 2 [facility] 25 mg 5-16 tablets by [facility] of tablet 00:00: mouth (two) Medical times Branch daily. topiramate 2021-0 Yes [id number] 50mg Take 2 [facility] 25 mg 5-16 tablets by [facility] of tablet 00:00: mouth (two) Medical times Branch daily. topiramate 2021-0 Yes [id number] 50mg Take 2 [facility] 25 mg 5-16 tablets by [facility] of tablet 00:00: mouth (two) Medical times Branch daily. topiramate 2021-0 Yes [id number] 50mg Take 2 [facility] 25 mg 5-16 tablets by [facility] of tablet 00:00: mouth 2 (two) Medical times Branch daily. SUMAtriptan 2021-0 Yes [id number] 50mg Take 1 [facility] 50 mg 5-16 tablet by [facility] of tablet 00:00: mouth as 00 needed for Medical Migraine. Branch topiramate 2021-0 Yes [id number] 50mg Take 2 [facility] 25 mg 5-16 tablets by [facility] of tablet 00:00: mouth 2 (two) Medical times Branch daily. SUMAtriptan 2021-0 Yes [id number] 50mg Take 1 [facility] 50 mg 5-16 tablet by [facility] of tablet 00:00: mouth as [place] 00 needed for Medical Migraine. Branch topiramate 2021-0 Yes [id number] 50mg Take 2 [facility] 25 mg 5-16 tablets by [facility] of tablet 00:00: mouth 2 [place] (two) Medical times Branch daily. SUMAtriptan 2021-0 Yes [id number] 50mg Take 1 [facility] 50 mg 5-16 tablet by [facility] of tablet 00:00: mouth as [place] 00 needed for Medical Migraine. Branch topiramate 2021-0 Yes [id number] 50mg Take 2 [facility] 25 mg 5-16 tablets by [facility] of tablet 00:00: mouth 2 (two) Medical times Branch daily. SUMAtriptan 2021-0 Yes [id number] 50mg Take 1 [facility] 50 mg 5-16 tablet by [facility] of tablet 00:00: mouth as [place] 00 needed for Medical Migraine. Branch topiramate 2021-0 Yes [id number] 50mg Take 2 [facility] 25 mg 5-16 tablets by [facility] of tablet 00:00: mouth 2 (two) Medical times Branch daily. SUMAtriptan 2-0 Yes [id number] 50mg Take 1 [facility] 50 mg 5-16 tablet by [facility] of tablet 00:00: mouth as [place] 00 needed for Medical Migraine. Branch topiramate 2021-0 Yes [id number] 50mg Take 2 [facility] 25 mg 5-16 tablets by [facility] of tablet 00:00: mouth 2 (two) Medical times Branch daily. SUMAtriptan 2-0 Yes [id number] 50mg Take 1 [facility] 50 mg 5-16 tablet by [facility] of tablet 00:00: mouth as [place] 00 needed for Medical Migraine. Branch topiramate 2-0 Yes [id number] 50mg Take 2 [facility] 25 mg 5-16 tablets by [facility] of tablet 00:00: mouth 2 00 (two) Medical times Branch daily. topiramate 2-0 Yes [id number] 50mg Take 2 [facility] 25 mg 5-16 tablets by [facility] of tablet 00:00: mouth 2 [place] 00 (two) Medical times Branch daily. topiramate 2021-0 Yes [id number] 50mg Take 2 [facility] 25 mg 5-16 tablets by [facility] of tablet 00:00: mouth 2 [place] 00 (two) Medical times Branch daily. topiramate 2021-0 Yes [id number] 50mg Take 2 [facility] 25 mg 5-16 tablets by [facility] of tablet 00:00: mouth 2 [place] 00 (two) Medical times Branch daily. topiramate 2021-0 Yes [id number] 50mg Take 2 [facility] 25 mg 5-16 tablets by [facility] of tablet 00:00: mouth 2 [place] 00 (two) Medical times Branch daily. topiramate 2021-0 Yes [id number] 50mg Take 2 [facility] 25 mg 5-16 tablets by [facility] of tablet 00:00: mouth 2 [place] 00 (two) Medical times Branch daily. topiramate 2021-0 2022- No [id number] 50mg Take 2 [facility] 25 mg 5-16 09-01 tablets by [facility] of tablet 00:00: 00:00 mouth 2 [place] 00 :00 (two) Medical times Branch daily. SUMAtriptan 2021-0 2022- No [id number] 50mg Take 1 [facility] 50 mg 5-16 [...] [place] 00 before Medical meals. Branch ALCOHOL 2021- Yes 1{dose} Apply 1 [facility] ers PADS [...] PadM 5-08 Dose to [facility] of 00:00: [facility] [place] 00 before Medical meals. Branch ALCOHOL Yes 1{dose} Apply 1 [facility] ers PADS PadM 5-08 Dose to [facility] of 00:00: [facility] [place] 00 before Medical meals. Branch ALCOHOL Yes 1{dose} Apply 1 [facility] ers PADS PadM 5-08 Dose to [facility] of 00:00: [facility] [place] 00 before Medical meals. Branch ALCOHOL Yes 1{dose} Apply 1 [facility] ers PADS PadM 5-08 Dose to [facility] of 00:00: [facility] [place] 00 before Medical meals. Branch ALCOHOL Yes 1{dose} Apply 1 [facility] ers PADS PadM 5-08 Dose to [facility] of 00:00: [facility] [place] 00 before Medical meals. Branch ALCOHOL Yes 1{dose} Apply 1 [facility] ers PADS PadM 5-08 Dose to [facility] of 00:00: [facility] [place] 00 before Medical meals. Branch ALCOHOL 2021- No 1{dose} Apply 1 [facility] vers PADS PadM 5-08 09-22 Dose to [facility] of 00:00: 00:00 [facility] [place] 00 :00 before Medical meals. Branch ALCOHOL 2021- No 1{dose} Apply 1 [facility] vers PADS PadM 5-08 09-22 Dose to [facility] of 00:00: 00:00 [facility] [place] 00 :00 before Medical meals. Branch ALCOHOL 2021- No 1{dose} Apply 1 [facility] vers PADS PadM 5-08 09-22 Dose to [facility] of 00:00: 00:00 [facility] [place] 00 :00 before Medical meals. Branch pregabalin Yes [id number] 150mg Take 1 [facility] 150 mg 4-29 capsule by [facility] of capsule 00:00: mouth 3 (three) Medical times [place] daily. busPIRone Yes [id number] 20mg Take 2 [facility] [place] 10 mg 4-29 tablets by [facility] of tablet 00:00: mouth 2 (two) Medical times [place] daily. citalopram Yes [id number] 40mg Take 1 [facility] 40 mg 4-29 tablet by [facility] of tablet 00:00: mouth 00 daily. Medical Branch pregabalin 2021-0 Yes [id number] 150mg Take 1 [facility] 150 mg 4-29 capsule by [facility] of capsule 00:00: mouth 3 (three) Medical times Branch daily. busPIRone 2021-0 Yes [id number] 20mg Take 2 [facility] [place] 10 mg 4-29 tablets by [facility] of tablet 00:00: mouth (two) Medical times Branch daily. citalopram 2021-0 Yes [id number] 40mg Take 1 [facility] 40 mg 4-29 tablet by [facility] of tablet 00:00: mouth 00 daily. Medical Branch pregabalin 2021-0 Yes [id number] 150mg Take 1 [facility] 150 mg 4-29 capsule by [facility] of capsule 00:00: mouth 3 (three) Medical times Branch daily. busPIRone 2021-0 Yes [id number] 20mg Take 2 [facility] [place] 10 mg 4-29 tablets by [facility] of tablet 00:00: mouth (two) Medical times Branch daily. citalopram 2021-0 Yes [id number] 40mg Take 1 [facility] 40 mg 4-29 tablet by [facility] of tablet 00:00: mouth 00 daily. Medical Branch pregabalin 2021-0 Yes [id number] 150mg Take 1 [facility] 150 mg 4-29 capsule by [facility] of capsule 00:00: mouth (three) Medical times Branch daily. busPIRone 2021-0 Yes [id number] 20mg Take 2 [facility] [place] 10 mg 4-29 tablets by [facility] of tablet 00:00: mouth (two) Medical times Branch daily. citalopram 2021-0 Yes [id number] 40mg Take 1 [facility] 40 mg 4-29 tablet by [facility] of tablet 00:00: mouth 00 daily. Medical Branch pregabalin 2021-0 Yes [id number] 150mg Take 1 [facility] 150 mg 4-29 capsule by [facility] of capsule 00:00: mouth 3 (three) Medical times Branch daily. busPIRone 2021-0 Yes [id number] 20mg Take 2 [facility] [place] 10 mg 4-29 tablets by [facility] of tablet 00:00: mouth (two) Medical times Branch daily. citalopram 2021-0 Yes [id number] 40mg Take 1 [facility] 40 mg 4-29 tablet by [facility] of tablet 00:00: mouth daily. Medical Branch pregabalin 2021-0 Yes [id number] 150mg Take 1 [facility] 150 mg 4-29 capsule by [facility] of capsule 00:00: mouth 3 (three) Medical times Branch daily. busPIRone 2021-0 Yes [id number] 20mg Take 2 [facility] [place] 10 mg 4-29 tablets by [facility] of tablet 00:00: mouth (two) Medical times Branch daily. citalopram 2021-0 Yes [id number] 40mg Take 1 [facility] 40 mg 4-29 tablet by [facility] of tablet 00:00: mouth daily. Medical Branch pregabalin 2021-0 Yes [id number] 150mg Take 1 [facility] 150 mg 4-29 capsule by [facility] of capsule 00:00: mouth (three) Medical times Branch daily. busPIRone 2021-0 Yes [id number] 20mg Take 2 [facility] [place] 10 mg 4-29 tablets by [facility] of tablet 00:00: mouth (two) Medical times Branch daily. citalopram 2021-0 Yes [id number] 40mg Take 1 [facility] 40 mg 4-29 tablet by [facility] of tablet 00:00: mouth daily. Medical Branch pregabalin 2021-0 Yes [id number] 150mg Take 1 [facility] 150 mg 4-29 capsule by [facility] of capsule 00:00: mouth (three) Medical times Branch daily. busPIRone 2021-0 Yes [id number] 20mg Take 2 [facility] [place] 10 mg 4-29 tablets by [facility] of tablet 00:00: mouth (two) Medical times Branch daily. citalopram 2021-0 Yes [id number] 40mg Take 1 [facility] 40 mg 4-29 tablet by [facility] of tablet 00:00: mouth 00 daily. Medical Branch pregabalin 2021-0 Yes [id number] 150mg Take 1 [facility] 150 mg 4-29 capsule by [facility] of capsule 00:00: mouth 3 (three) Medical times Branch daily. busPIRone 2021-0 Yes [id number] 20mg Take 2 [facility] [place] 10 mg 4-29 tablets by [facility] of tablet 00:00: mouth (two) Medical times Branch daily. citalopram 2021-0 Yes [id number] 40mg Take 1 [facility] 40 mg 4-29 tablet by [facility] of tablet 00:00: mouth daily. Medical Branch pregabalin 2021-0 Yes [id number] 150mg Take 1 [facility] 150 mg 4-29 capsule by [facility] of capsule 00:00: mouth 3 (three) Medical times Branch daily. busPIRone 2021-0 Yes [id number] 20mg Take 2 [facility] [place] 10 mg 4-29 tablets by [facility] of tablet 00:00: mouth (two) Medical times Branch daily. citalopram 2021-0 Yes [id number] 40mg Take 1 [facility] 40 mg 4-29 tablet by [facility] of tablet 00:00: mouth daily. Medical Branch pregabalin 2021-0 Yes [id number] 150mg Take 1 [facility] 150 mg 4-29 capsule by [facility] of capsule 00:00: mouth (three) Medical times Branch daily. busPIRone 2021-0 Yes [id number] 20mg Take 2 [facility] [place] 10 mg 4-29 tablets by [facility] of tablet 00:00: mouth (two) Medical times Branch daily. citalopram 2021-0 Yes [id number] 40mg Take 1 [facility] 40 mg 4-29 tablet by [facility] of tablet 00:00: mouth daily. Medical Branch pregabalin 2021-0 Yes [id number] 150mg Take 1 [facility] 150 mg 4-29 capsule by [facility] of capsule 00:00: mouth (three) Medical times Branch daily. busPIRone 2-0 Yes [id number] 20mg Take 2 [facility] [place] 10 mg 4-29 tablets by [facility] of tablet 00:00: mouth (two) Medical times Branch daily. citalopram 2021-0 Yes [id number] 40mg Take 1 [facility] 40 mg 4-29 tablet by [facility] of tablet 00:00: mouth daily. Medical Branch pregabalin 2022-0 Yes [id number] 150mg Take 1 [facility] 150 mg 4-29 capsule by [facility] of capsule 00:00: mouth 3 (three) Medical times Branch daily. busPIRone 2021-0 Yes [id number] 20mg Take 2 [facility] [place] 10 mg 4-29 tablets by [facility] of tablet 00:00: mouth (two) Medical times Branch daily. citalopram 2021-0 Yes [id number] 40mg Take 1 [facility] 40 mg 4-29 tablet by [facility] of tablet 00:00: mouth daily. Medical Branch pregabalin 2021-0 Yes [id number] 150mg Take 1 [facility] 150 mg 4-29 capsule by [facility] of capsule 00:00: mouth (three) Medical times Branch daily. busPIRone 2021-0 Yes [id number] 20mg Take 2 [facility] [place] 10 mg 4-29 tablets by [facility] of tablet 00:00: mouth (two) Medical times Branch daily. citalopram 2021-0 Yes [id number] 40mg Take 1 [facility] 40 mg 4-29 tablet by [facility] of tablet 00:00: mouth daily. Medical Branch pregabalin 2021-0 Yes [id number] 150mg Take 1 [facility] 150 mg 4-29 capsule by [facility] of capsule 00:00: mouth (three) Medical times Branch daily. busPIRone 2021-0 Yes [id number] 20mg Take 2 [facility] [place] 10 mg 4-29 tablets by [facility] of tablet 00:00: mouth (two) Medical times Branch daily. citalopram 2021-0 Yes [id number] 40mg Take 1 [facility] 40 mg 4-29 tablet by [facility] of tablet 00:00: mouth daily. Medical Branch pregabalin 2021-0 Yes [id number] 150mg Take 1 [facility] 150 mg 4-29 capsule by [facility] of capsule 00:00: mouth 3 (three) Medical times Branch daily. busPIRone 2021-0 Yes [id number] 20mg Take 2 [facility] [place] 10 mg 4-29 tablets by [facility] of tablet 00:00: mouth (two) Medical times Branch daily. citalopram 2021-0 Yes [id number] 40mg Take 1 [facility] 40 mg 4-29 tablet by [facility] of tablet 00:00: mouth 00 daily. Medical Branch pregabalin 2021-0 Yes [id number] 150mg Take 1 [facility] 150 mg 4-29 capsule by [facility] of capsule 00:00: mouth 3 (three) Medical times Branch daily. busPIRone 2021-0 Yes [id number] 20mg Take 2 [facility] [place] 10 mg 4-29 tablets by [facility] of tablet 00:00: mouth (two) Medical times Branch daily. citalopram 2021-0 Yes [id number] 40mg Take 1 [facility] 40 mg 4-29 tablet by [facility] of tablet 00:00: mouth 00 daily. Medical Branch pregabalin 2021-0 Yes [id number] 150mg Take 1 [facility] 150 mg 4-29 capsule by [facility] of capsule 00:00: mouth (three) Medical times Branch daily. busPIRone 2021-0 Yes [id number] 20mg Take 2 [facility] [place] 10 mg 4-29 tablets by [facility] of tablet 00:00: mouth (two) Medical times Branch daily. citalopram 2021-0 Yes [id number] 40mg Take 1 [facility] 40 mg 4-29 tablet by [facility] of tablet 00:00: mouth daily. Medical Branch pregabalin 2021-0 Yes [id number] 150mg Take 1 [facility] 150 mg 4-29 capsule by [facility] of capsule 00:00: mouth (three) Medical times Branch daily. busPIRone 2021-0 Yes [id number] 20mg Take 2 [facility] [place] 10 mg 4-29 tablets by [facility] of tablet 00:00: mouth (two) Medical times Branch daily. citalopram 2021-0 Yes [id number] 40mg Take 1 [facility] 40 mg 4-29 tablet by [facility] of tablet 00:00: mouth 00 daily. Medical Branch pregabalin 2021-0 Yes [id number] 150mg Take 1 [facility] 150 mg 4-29 capsule by [facility] of capsule 00:00: mouth 3 (three) Medical times Branch daily. busPIRone 2021-0 Yes [id number] 20mg Take 2 [facility] [place] 10 mg 4-29 tablets by [facility] of tablet 00:00: mouth (two) Medical times Branch daily. citalopram 2021-0 Yes [id number] 40mg Take 1 [facility] 40 mg 4-29 tablet by [facility] of tablet 00:00: mouth 00 daily. Medical Branch pregabalin 2021-0 Yes [id number] 150mg Take 1 [facility] 150 mg 4-29 capsule by [facility] of capsule 00:00: mouth 3 (three) Medical times Branch daily. busPIRone 2021-0 Yes [id number] 20mg Take 2 [facility] [place] 10 mg 4-29 tablets by [facility] of tablet 00:00: mouth (two) Medical times Branch daily. citalopram 2021-0 Yes [id number] 40mg Take 1 [facility] 40 mg 4-29 tablet by [facility] of tablet 00:00: mouth 00 daily. Medical Branch pregabalin 2021-0 Yes [id number] 150mg Take 1 [facility] 150 mg 4-29 capsule by [facility] of capsule 00:00: mouth (three) Medical times Branch daily. busPIRone 2021-0 Yes [id number] 20mg Take 2 [facility] [facility] 10 mg 4-29 tablets by [facility] tablet 00:00: mouth (two) Medical times [facility] daily. citalopram 2021-0 Yes [id number] 40mg Take 1 [facility] n[facility] 40 mg 4-29 tablet by [facility] tablet 00:00: mouth 00 daily. [facility] pregabalin 2021-0 Yes [id number] 150mg Take 1 [facility] 150 mg 4-29 capsule by [facility] capsule 00:00: mouth 3 (three) Medical times [facility] daily. busPIRone 2021-0 Yes [id number] 20mg Take 2 Un [place] 10 mg 4-29 tablets by [facility] tablet 00:00: mouth (two) [facility] times [facility] daily. citalopram 2-0 Yes [id number] 40mg Take 1 [facility] nivers 40 mg 4-29 tablet by [facility] tablet 00:00: mouth 00 daily. [facility] pregabalin 2021-0 Yes [id number] 150mg Take 1 [facility] 150 mg 4-29 capsule by [facility] capsule 00:00: mouth 3 [place] 00 (three) Medical times [facility] daily. busPIRone 2021-0 Yes [id number] 20mg Take 2 Un [place] 10 mg 4-29 tablets by [facility] tablet 00:00: mouth (two) Medical times [facility] daily. citalopram 2021-0 Yes [id number] 40mg Take 1 [facility] n[facility] 40 mg 4-29 tablet by [facility] tablet 00:00: mouth daily. [facility] pregabalin 2021-0 Yes [id number] 150mg Take 1 [facility] 150 mg 4-29 capsule by [facility] capsule 00:00: mouth 3 (three) Medical times [facility] daily. busPIRone 2021-0 Yes [id number] 20mg Take 2 Un [place] 10 mg 4-29 tablets by [facility] tablet 00:00: mouth (two) Medical times [facility] daily. citalopram 2021-0 Yes [id number] 40mg Take 1 [facility] nivers 40 mg 4-29 tablet by [facility] tablet 00:00: mouth daily. [facility] pregabalin 2021-0 Yes [id number] 150mg Take 1 [facility] 150 mg 4-29 capsule by [facility] capsule 00:00: mouth (three) Medical times [facility] daily. busPIRone 2021-0 Yes [id number] 20mg Take 2 Un [place] 10 mg 4-29 tablets by [facility] tablet 00:00: mouth (two) Medical times [facility] daily. citalopram 2021-0 Yes [id number] 40mg Take 1 [facility] nivers 40 mg 4-29 tablet by [facility] tablet 00:00: mouth daily. [facility] pregabalin 2021-0 Yes [id number] 150mg Take 1 [facility] 150 mg 4-29 capsule by [facility] capsule 00:00: mouth (three) Medical times [facility] daily. busPIRone 2-0 Yes [id number] 20mg Take 2 Un [place] 10 mg 4-29 tablets by [facility] tablet 00:00: mouth (two) Medical times [facility] daily. citalopram 2-0 Yes [id number] 40mg Take 1 [facility] n[facility] 40 mg 4-29 tablet by [facility] tablet 00:00: mouth daily. [facility] pregabalin 2021-0 Yes [id number] 150mg Take 1 [facility] 150 mg 4-29 capsule by [facility] capsule 00:00: mouth 3 (three) Medical times [facility] daily. busPIRone 2021-0 Yes [id number] 20mg Take 2 Un [place] 10 mg 4-29 tablets by [facility] tablet 00:00: mouth (two) Medical times [facility] daily. citalopram 2021-0 Yes [id number] 40mg Take 1 [facility] n[facility] 40 mg 4-29 tablet by [facility] tablet 00:00: mouth 00 daily. [facility] pregabalin 2021-0 Yes [id number] 150mg Take 1 [facility] 150 mg 4-29 capsule by [facility] capsule 00:00: mouth (three) Medical times [facility] daily. busPIRone 2021-0 Yes [id number] 20mg Take 2 Un [place] 10 mg 4-29 tablets by [facility] tablet 00:00: mouth (two) Medical times [facility] daily. citalopram 2021-0 Yes [id number] 40mg Take 1 [facility] 40 mg 4-29 tablet by [facility] tablet 00:00: mouth daily. [facility] pregabalin 2021-0 Yes [id number] 150mg Take 1 [facility] 150 mg 4-29 capsule by [facility] capsule 00:00: mouth (three) Medical times [facility] daily. busPIRone 2021-0 Yes [id number] 20mg Take 2 Un [place] 10 mg 4-29 tablets by [facility] tablet 00:00: mouth (two) Medical times [facility] daily. citalopram 2021-0 Yes [id number] 40mg Take 1 [facility] 40 mg 4-29 tablet by [facility] tablet 00:00: mouth 00 daily. [facility] pregabalin 2021-0 Yes [id number] 150mg Take 1 [facility] 150 mg 4-29 capsule by [facility] capsule 00:00: mouth 3 (three) Medical times [facility] daily. busPIRone 2021-0 Yes [id number] 20mg Take 2 Un [place] 10 mg 4-29 tablets by [facility] tablet 00:00: mouth (two) Medical times [facility] daily. citalopram 2021-0 Yes [id number] 40mg Take 1 [facility] 40 mg 4-29 tablet by [facility] tablet 00:00: mouth 00 daily. [facility] pregabalin 2021-0 Yes [id number] 150mg Take 1 [facility] 150 mg 4-29 capsule by [facility] capsule 00:00: mouth 3 (three) Medical times [facility] daily. busPIRone 2021-0 Yes [id number] 20mg Take 2 Un [place] 10 mg 4-29 tablets by [facility] tablet 00:00: mouth (two) Medical times [facility] daily. citalopram 2021-0 Yes [id number] 40mg Take 1 [facility] 40 mg 4-29 tablet by [facility] tablet 00:00: mouth 00 daily. [facility] pregabalin 2021-0 Yes [id number] 150mg Take 1 [facility] 150 mg 4-29 capsule by [facility] of capsule 00:00: mouth (three) Medical times [facility] daily. busPIRone 2021-0 Yes [id number] 20mg Take 2 Un [place] 10 mg 4-29 tablets by [facility] tablet 00:00: mouth (two) Medical times [facility] daily. citalopram 2021-0 Yes [id number] 40mg Take 1 [facility] 40 mg 4-29 tablet by [facility] tablet 00:00: mouth daily. [facility] pregabalin 2021-0 Yes [id number] 150mg Take 1 [facility] 150 mg 4-29 capsule by [facility] of capsule 00:00: mouth (three) Medical times [facility] daily. busPIRone 2021-0 Yes [id number] 20mg Take 2 Un [place] 10 mg 4-29 tablets by [facility] tablet 00:00: mouth (two) Medical times [facility] daily. citalopram 2021-0 Yes [id number] 40mg Take 1 [facility] 40 mg 4-29 tablet by [facility] tablet 00:00: mouth 00 daily. [facility] pregabalin 2021-0 Yes [id number] 150mg Take 1 [facility] 150 mg 4-29 capsule by [facility] of capsule 00:00: mouth 3 (three) Medical times [facility] daily. busPIRone 2021-0 Yes [id number] 20mg Take 2 Un [place] 10 mg 4-29 tablets by [facility] tablet 00:00: mouth (two) Medical times [facility] daily. citalopram 2021-0 Yes [id number] 40mg Take 1 [facility] 40 mg 4-29 tablet by [facility] tablet 00:00: mouth 00 daily. [facility] pregabalin 2021-0 Yes [id number] 150mg Take 1 [facility] 150 mg 4-29 capsule by [facility] of capsule 00:00: mouth 3 (three) Medical times [facility] daily. busPIRone 2021-0 Yes [id number] 20mg Take 2 Un [place] 10 mg 4-29 tablets by [facility] tablet 00:00: mouth (two) Medical times [facility] daily. citalopram 2021-0 Yes [id number] 40mg Take 1 [facility] 40 mg 4-29 tablet by [facility] tablet 00:00: mouth 00 daily. [facility] pregabalin 2021-0 Yes [id number] 150mg Take 1 [facility] 150 mg 4-29 capsule by [facility] of capsule 00:00: mouth (three) Medical times [facility] daily. busPIRone 2021-0 Yes [id number] 20mg Take 2 Un [place] 10 mg 4-29 tablets by [facility] tablet 00:00: mouth (two) Medical times [facility] daily. citalopram 2021-0 Yes [id number] 40mg Take 1 [facility] 40 mg 4-29 tablet by [facility] tablet 00:00: mouth 00 daily. [facility] citalopram 2021-0 Yes [id number] 40mg Take 1 [facility] 40 mg 4-29 tablet by [facility] tablet 00:00: mouth 00 daily. [facility] pregabalin 2021-0 Yes [id number] 150mg Take 1 [facility] 150 mg 4-29 capsule by [facility] capsule 00:00: mouth (three) Medical times [facility] daily. busPIRone 2021-0 Yes [id number] 20mg Take 2 Un [place] 10 mg 4-29 tablets by [facility] tablet 00:00: mouth 2 (two) Medical times [facility] daily. citalopram 2021-0 Yes [id number] 40mg Take 1 [facility] 40 mg 4-29 tablet by [facility] tablet 00:00: mouth 00 daily. [facility] pregabalin 2021-0 Yes [id number] 150mg Take 1 [facility] 150 mg 4-29 capsule by [facility] of capsule 00:00: mouth 3 (three) Medical times [facility] daily. busPIRone 2021-0 Yes [id number] 20mg Take 2 [facility] [place] 10 mg 4-29 tablets by [facility] tablet 00:00: mouth (two) Medical times [facility] daily. citalopram 2021-0 Yes [id number] 40mg Take 1 [facility] 40 mg 4-29 tablet by [facility] tablet 00:00: mouth daily. [facility] pregabalin 2021-0 Yes [id number] 150mg Take 1 [facility] 150 mg 4-29 capsule by [facility] of capsule 00:00: mouth (three) Medical times [facility] daily. busPIRone 2021-0 Yes [id number] 20mg Take 2 [facility] [place] 10 mg 4-29 tablets by [facility] tablet 00:00: mouth (two) Medical times [facility] daily. citalopram 2021-0 Yes [id number] 40mg Take 1 [facility] 40 mg 4-29 tablet by [facility] tablet 00:00: mouth daily. [facility] pregabalin 2021-0 Yes [id number] 150mg Take 1 [facility] 150 mg 4-29 capsule by [facility] capsule 00:00: mouth (three) Medical times [facility] daily. busPIRone 2021-0 Yes [id number] 20mg Take 2 [facility] [place] 10 mg 4-29 tablets by [facility] tablet 00:00: mouth (two) Medical times [facility] daily. citalopram 2021-0 Yes [id number] 40mg Take 1 [facility] 40 mg 4-29 tablet by [facility] tablet 00:00: mouth daily. [facility] pregabalin 2021-0 Yes [id number] 150mg Take 1 [facility] 150 mg 4-29 capsule by [facility] of capsule 00:00: mouth 3 (three) Medical times [facility] daily. busPIRone 2021-0 Yes [id number] 20mg Take 2 [facility] [place] 10 mg 4-29 tablets by [facility] tablet 00:00: mouth (two) Medical times [facility] daily. citalopram 2021-0 Yes [id number] 40mg Take 1 [facility] 40 mg 4-29 tablet by [facility] tablet 00:00: mouth 00 daily. [facility] pregabalin 2021-0 Yes [id number] 150mg Take 1 [facility] 150 mg 4-29 capsule by [facility] of capsule 00:00: mouth 3 (three) Medical times [facility] daily. busPIRone 2021-0 Yes [id number] 20mg Take 2 [facility] [place] 10 mg 4-29 tablets by [facility] tablet 00:00: mouth (two) Medical times [facility] daily. citalopram 2021-0 Yes [id number] 40mg Take 1 [facility] 40 mg 4-29 tablet by [facility] tablet 00:00: mouth 00 daily. [facility] pregabalin 2021-0 Yes [id number] 150mg Take 1 [facility] 150 mg 4-29 capsule by [facility] of capsule 00:00: mouth (three) Medical times [facility] daily. busPIRone 2021-0 Yes [id number] 20mg Take 2 [facility] [place] 10 mg 4-29 tablets by [facility] of tablet 00:00: mouth (two) [facility] times [facility] daily. citalopram 2021-0 Yes [id number] 40mg Take 1 [facility] 40 mg 4-29 tablet by [facility] of tablet 00:00: mouth daily. [facility] pregabalin 2021-0 Yes [id number] 150mg Take 1 [facility] 150 mg 4-29 capsule by [facility] of capsule 00:00: mouth (three) Medical times [facility] daily. busPIRone 2021-0 Yes [id number] 20mg Take 2 [facility] [place] 10 mg 4-29 tablets by [facility] of tablet 00:00: mouth (two) Medical times [facility] daily. citalopram 2021-0 Yes [id number] 40mg Take 1 [facility] 40 mg 4-29 tablet by [facility] of tablet 00:00: mouth 00 daily. [facility] pregabalin 2021-0 Yes [id number] 150mg Take 1 [facility] 150 mg 4-29 capsule by [facility] of capsule 00:00: mouth 3 (three) Medical times [facility] daily. busPIRone 2021-0 Yes [id number] 20mg Take 2 [facility] [place] 10 mg 4-29 tablets by [facility] of tablet 00:00: mouth 2 00 (two) Medical times [facility] daily. citalopram 2021-0 Yes [id number] 40mg Take 1 [facility] 40 mg 4-29 tablet by [facility] of tablet 00:00: mouth [place] 00 daily. [facility] pregabalin 0 Yes [id number] 150mg Take 1 [facility] 150 mg 4-29 capsule by [facility] of capsule 00:00: mouth 3 [place] 00 (three) Medical times [facility] daily. busPIRone 2021-0 Yes [id number] 20mg Take 2 Un [facility] 10 mg 4-29 tablets by [facility] of tablet 00:00: mouth 2 [place] 00 (two) Medical times [facility] daily. citalopram 2021-0 Yes [id number] 40mg Take 1 [facility] 40 mg 4-29 tablet by [facility] of tablet 00:00: mouth [place] 00 daily. [facility] pregabalin Yes [id number] 150mg Take 1 [facility] 150 mg 4-29 capsule by [facility] of capsule 00:00: mouth 3 [place] 00 (three) Medical times [facility] daily. busPIRone 2021-0 Yes [id number] 20mg Take 2 Un [place] 10 mg 4-29 tablets by [facility] of tablet 00:00: mouth 2 [place] 00 (two) Medical times [facility] daily. citalopram 2021-0 Yes [id number] 40mg Take 1 [facility] 40 mg 4-29 tablet by [facility] of tablet 00:00: mouth [place] 00 daily. [facility] pregabalin 2021- No [id number] 150mg Take 1 [facility] 150 mg 4-29 10-13 capsule by [facility] of capsule 00:00: 00:00 mouth 3 [place] 00 :00 (three) Medical times [facility] daily. busPIRone 2021-0 2021- No [id number] 20mg Take 2 [facility] 10 mg 4-29 10-13 tablets by [facility] of tablet 00:00: 00:00 mouth 2 [place] 00 :00 (two) Medical times [facility] daily. pantoprazol 2021-0 Yes [id number] 40mg Take 1 [facility] e 40 mg EC 4-04 tablet by [facility] of tablet 00:00: mouth [place] 00 daily. [facility] pantoprazol 2021-0 Yes [id number] 40mg Take 1 [facility] e 40 mg EC 4-04 tablet by [facility] of tablet 00:00: mouth [place] 00 daily. [facility] pantoprazol 2021-0 Yes [id number] 40mg Take 1 [facility] e 40 mg EC 4-04 tablet by [facility] of tablet 00:00: mouth [place] 00 daily. [facility] pantoprazol 2021-0 Yes [id number] 40mg Take 1 [facility] e 40 mg EC 4-04 tablet by [facility] of tablet 00:00: mouth [place] 00 daily. [facility] pantoprazol 2021-0 Yes [id number] 40mg Take 1 [facility] e 40 mg EC 4-04 tablet by [facility] of tablet 00:00: mouth [place] 00 daily. [facility] pantoprazol 2021-0 Yes [id number] 40mg Take 1 [facility] e 40 mg EC 4-04 tablet by [facility] of tablet 00:00: mouth [place] 00 daily. [facility] pantoprazol 2021-0 Yes [id number] 40mg Take 1 [facility] e 40 mg EC 4-04 tablet by [facility] of tablet 00:00: mouth [place] 00 daily. [facility] pantoprazol 2021-0 Yes [id number] 40mg Take 1 [facility] e 40 mg EC 4-04 tablet by [facility] of tablet 00:00: mouth [place] 00 daily. [facility] pantoprazol 2021-0 Yes [id number] 40mg Take 1 [facility] e 40 mg EC 4-04 tablet by [facility] of tablet 00:00: mouth [place] 00 daily. [facility] pantoprazol 2021-0 Yes [id number] 40mg Take 1 [facility] e 40 mg EC 4-04 tablet by [facility] of tablet 00:00: mouth [place] 00 daily. [facility] pantoprazol 2021-0 Yes [id number] 40mg Take 1 [facility] e 40 mg EC 4-04 tablet by [facility] of tablet 00:00: mouth [place] 00 daily. [facility] pantoprazol 2021-0 Yes [id number] 40mg Take 1 [facility] e 40 mg EC 4-04 tablet by [facility] of tablet 00:00: mouth [place] 00 daily. [facility] pantoprazol 2021-0 Yes [id number] 40mg Take 1 [facility] e 40 mg EC 4-04 tablet by [facility] of tablet 00:00: mouth [place] 00 daily. [facility] pantoprazol 2021-0 Yes [id number] 40mg Take 1 [facility] e 40 mg EC 4-04 tablet by [facility] of tablet 00:00: mouth [place] 00 daily. [facility] pantoprazol 2021-0 Yes [id number] 40mg Take 1 [facility] e 40 mg EC 4-04 tablet by [facility] of tablet 00:00: mouth [place] 00 daily. [facility] pantoprazol 2021-0 Yes [id number] 40mg Take 1 [facility] e 40 mg EC 4-04 tablet by [facility] of tablet 00:00: mouth [place] 00 daily. [facility] pantoprazol 2021-0 Yes [id number] 40mg Take 1 [facility] e 40 mg EC 4-04 tablet by [facility] of tablet 00:00: mouth [place] 00 daily. [facility] pantoprazol 2021-0 Yes [id number] 40mg Take 1 [facility] e 40 mg EC 4-04 tablet by [facility] of tablet 00:00: mouth [place] 00 daily. [facility] pantoprazol 2021-0 Yes [id number] 40mg Take 1 [facility] e 40 mg EC 4-04 tablet by [facility] of tablet 00:00: mouth [place] 00 daily. [facility] pantoprazol 2021-0 Yes [id number] 40mg Take 1 [facility] e 40 mg EC 4-04 tablet by [facility] of tablet 00:00: mouth [place] 00 daily. [facility] pantoprazol 2021-0 Yes [id number] 40mg Take 1 [facility] e 40 mg EC 4-04 tablet by [facility] of tablet 00:00: mouth [place] 00 daily. [facility] pantoprazol 2021-0 Yes [id number] 40mg Take 1 [facility] e 40 mg EC 4-04 tablet by [facility] of tablet 00:00: mouth [place] 00 daily. [facility] pantoprazol 2021-0 Yes [id number] 40mg Take 1 [facility] e 40 mg EC 4-04 tablet by [facility] of tablet 00:00: mouth [place] 00 daily. [facility] pantoprazol 2021-0 Yes [id number] 40mg Take 1 [facility] e 40 mg EC 4-04 tablet by [facility]y of tablet 00:00: mouth [place] 00 daily. [facility] pantoprazol 2021-0 Yes [id number] 40mg Take 1 [facility] e 40 mg EC 4-04 tablet by [facility] of tablet 00:00: mouth [place] 00 daily. [facility] pantoprazol 2021-0 Yes [id number] 40mg Take 1 [facility] e 40 mg EC 4-04 tablet by [facility] of tablet 00:00: mouth [place] 00 daily. [facility] pantoprazol 2-0 Yes [id number] 40mg Take 1 [facility] e 40 mg EC 4-04 tablet by [facility] of tablet 00:00: mouth [place] 00 daily. [facility] pantoprazol 2021-0 Yes [id number] 40mg Take 1 [facility] e 40 mg EC 4-04 tablet by [facility] of tablet 00:00: mouth [place] 00 daily. [facility] pantoprazol 2021-0 Yes [id number] 40mg Take 1 [facility] e 40 mg EC 4-04 tablet by [facility] of tablet 00:00: mouth [place] 00 daily. [facility] pantoprazol 2021-0 Yes [id number] 40mg Take 1 [facility] e 40 mg EC 4-04 tablet by [facility] of tablet 00:00: mouth [place] 00 daily. [facility] pantoprazol 2021-0 2021- No [id number] 40mg Take 1 [facility] e 40 mg EC 4-04 09-16 tablet by ity of tablet 00:00: 00:00 mouth [place] 00 :00 daily. [facility] pantoprazol 2021-0 2021- No [id number] 40mg Take 1 [facility] e 40 mg EC 4-04 -16 tablet by ity of tablet 00:00: 00:00 mouth [place] 00 :00 daily. [facility] Blood-Gluco 2-0 Yes [id number] Use twice [facility] se Meter 3-08 a day for ity of (ONETOUCH 00:00: ICD CODE [place] VERIO FLEX E11.65 Medical START) Kit [facility] Blood-Gluco 2-0 Yes [id number] Use twice [facility] se Meter 3-08 a day for ity of (ONETOUCH 00:00: ICD CODE [place] VERIO FLEX E11.65 Medical START) Kit [facility] Blood-Gluco 2-0 Yes [id number] Use twice [facility] se Meter 3-08 a day for ity of (ONETOUCH 00:00: ICD CODE [place] VERIO FLEX E11.65 Medical START) Kit [facility] Blood-Gluco 2-0 Yes [id number] Use twice [facility] se Meter 3-08 a day for ity of (ONETOUCH 00:00: ICD CODE [place] VERIO FLEX E11.65 Medical START) Kit [facility] Blood-Gluco 2-0 Yes [id number] Use twice [facility] se Meter 3-08 a day for ity of (ONETOUCH 00:00: ICD CODE [place] VERIO FLEX Medical START) Kit [facility] Blood-Gluco 2022-0 Yes [id number] Use twice [facility] se Meter 3-08 a day for ity of (ONETOUCH 00:00: ICD CODE [place] VERIO FLEX Medical START) Kit [facility] Blood-Gluco 2022-0 Yes [id number] Use twice [facility] se Meter 3-08 a day for ity of (ONETOUCH 00:00: ICD CODE [place] VERIO FLEX Medical START) Kit [facility] Blood-Gluco 2022-0 Yes [id number] Use twice [facility] se Meter 3-08 a day for ity of (ONETOUCH 00:00: ICD CODE [place] VERIO FLEX Medical START) Kit [facility] Blood-Gluco 2022-0 Yes [id number] Use twice [facility] se Meter 3-08 a day for ity of (ONETOUCH 00:00: ICD CODE [place] VERIO FLEX Medical START) Kit [facility] Blood-Gluco 2022-0 Yes [id number] Use twice [facility] se Meter 3-08 a day for ity of (ONETOUCH 00:00: ICD CODE [place] VERIO FLEX Medical START) Kit [facility] Blood-Gluco 2022-0 Yes [id number] Use twice [facility] se Meter 3-08 a day for ity of (ONETOUCH 00:00: ICD CODE [place] VERIO FLEX Medical START) Kit [facility] Blood-Gluco 2022-0 Yes [id number] Use twice [facility] se Meter 3-08 a day for ity of (ONETOUCH 00:00: ICD CODE [place] VERIO FLEX Medical START) Kit [facility] Blood-Gluco 2022-0 Yes [id number] Use twice [facility] se Meter 3-08 a day for ity of (ONETOUCH 00:00: ICD CODE [place] VERIO FLEX Medical START) Kit [facility] Blood-Gluco 2022-0 Yes [id number] Use twice [facility] se Meter 3-08 a day for ity of (ONETOUCH 00:00: ICD CODE [place] VERIO FLEX Medical START) Kit [facility] Blood-Gluco 2022-0 Yes [id number] Use twice [facility] se Meter 3-08 a day for ity of (ONETOUCH 00:00: ICD CODE [place] VERIO FLEX 65 Medical START) Kit [facility] Blood-Gluco 2022-0 Yes [id number] Use twice [facility] se Meter 3-08 a day for ity of (ONETOUCH 00:00: ICD CODE [place] VERIO FLEX Medical START) Kit [facility] Blood-Gluco 2022-0 Yes [id number] Use twice [facility] se Meter 3-08 a day for ity of (ONETOUCH 00:00: ICD CODE [place] VERIO FLEX Medical START) Kit [facility] Blood-Gluco 2022-0 Yes [id number] Use twice [facility] se Meter 3-08 a day for ity of (ONETOUCH 00:00: ICD CODE [place] VERIO FLEX Medical START) Kit [facility] Blood-Gluco 2022-0 Yes [id number] Use twice [facility] se Meter 3-08 a day for ity of (ONETOUCH 00:00: ICD CODE [place] VERIO FLEX Medical START) Kit [facility] Blood-Gluco 2022-0 Yes [id number] Use twice [facility] se Meter 3-08 a day for ity of (ONETOUCH 00:00: ICD CODE [place] VERIO FLEX Medical START) Kit [facility] Blood-Gluco 2022-0 Yes [id number] Use twice [facility] se Meter 3-08 a day for ity of (ONETOUCH 00:00: ICD CODE [place] VERIO FLEX Medical START) Kit [facility] Blood-Gluco 2022-0 Yes [id number] Use twice [facility] se Meter 3-08 a day for ity of (ONETOUCH 00:00: ICD CODE [place] VERIO FLEX 65 Medical START) Kit Branch Blood-Gluco 2022-0 Yes [id number] Use twice [facility] se Meter 3-08 a day for ity of (ONETOUCH 00:00: ICD CODE [place] VERIO FLEX 65 Medical START) Kit Branch Blood-Gluco 2022-0 Yes [id number] Use twice [facility] se Meter 3-08 a day for ity of (ONETOUCH 00:00: ICD CODE [place] VERIO FLEX Medical START) Kit [facility] Blood-Gluco 2022-0 Yes [id number] Use twice [facility] se Meter 3-08 a day for ity of (ONETOUCH 00:00: ICD CODE [place] VERIO FLEX Medical START) Kit [facility] Blood-Gluco 2022-0 Yes [id number] Use twice [facility] se Meter 3-08 a day for ity of (ONETOUCH 00:00: ICD CODE [place] VERIO FLEX Medical START) Kit [facility] Blood-Gluco 2022-0 Yes [id number] Use twice [facility] se Meter 3-08 a day for ity of (ONETOUCH 00:00: ICD CODE [place] VERIO FLEX Medical START) Kit [facility] Blood-Gluco 2022-0 Yes [id number] Use twice [facility] se Meter 3-08 a day for ity of (ONETOUCH 00:00: ICD CODE [place] VERIO FLEX Medical START) Kit [facility] Blood-Gluco 2022-0 Yes [id number] Use twice [facility] se Meter 3-08 a day for ity of (ONETOUCH 00:00: ICD CODE [place] VERIO FLEX Medical START) Kit [facility] Blood-Gluco 2022-0 Yes [id number] Use twice [facility] se Meter 3-08 a day for ity of (ONETOUCH 00:00: ICD CODE [place] VERIO FLEX Medical START) Kit [facility] Blood-Gluco 2022-0 Yes [id number] Use twice [facility] se Meter 3-08 a day for ity of (ONETOUCH 00:00: ICD CODE [place] VERIO FLEX Medical START) Kit [facility] Blood-Gluco 2022-0 Yes [id number] Use twice [facility] se Meter 3-08 a day for ity of (ONETOUCH 00:00: ICD CODE [place] VERIO FLEX Medical START) Kit [facility] Blood-Gluco 2022-0 Yes [id number] Use twice [facility] se Meter 3-08 a day for ity of (ONETOUCH 00:00: ICD CODE [place] VERIO FLEX Medical START) Kit [facility] Blood-Gluco 2022-0 Yes [id number] Use twice [facility] se Meter 3-08 a day for ity of (ONETOUCH 00:00: ICD CODE [place] VERIO FLEX 00 E11.65 Medical START) [facility] Blood-Gluco 2021-0 Yes [id number] Use twice [facility] se Meter 3-08 a day for ity of (ONETOUCH 00:00: ICD CODE [place] VERIO FLEX 00 E11.65 Medical START) [facility] Blood-Gluco 2021-0 Yes [id number] Use twice [facility] se Meter 3-08 a day for ity of (ONETOUCH 00:00: ICD CODE [place] VERIO FLEX 00 E11.65 Medical START) [facility] Blood-Gluco 2021-0 2021- No [id number] Use twice [facility] se Meter 3-08 -22 a day for ity o f (ONETOUCH 00:00: 00:00 ICD CODE [place] VERIO FLEX 00 :00 E11.65 Medical START) [facility] Blood-Gluco 2021-0 2022- No [id number] Use twice [facility] se Meter 3-08 -22 a day for ity o f (ONETOUCH 00:00: 00:00 ICD CODE [place] VERIO FLEX 00 :00 E11.65 Medical START) [facility] Blood-Gluco 2021-0 2022- No [id number] Use twice [facility] se Meter 3-08 -22 a day for ity o f (ONETOUCH 00:00: 00:00 ICD CODE [place] VERIO FLEX 00 :00 E11.65 Medical START) [facility] mirabegron 0 Yes [id number] 50mg Take 1 [facility] (MYRBETRIQ) 1-18 tablet by ity of 50 mg 00:00: mouth [place] tablet 00 daily. [facility] mirabegron 0 Yes [id number] 50mg Take 1 [facility] (MYRBETRIQ) 1-18 tablet by ity of 50 mg 00:00: mouth [place] tablet 00 daily. [facility] mirabegron 0 Yes [id number] 50mg Take 1 [facility] (MYRBETRIQ) 1-18 tablet by ity of 50 mg 00:00: mouth [place] tablet 00 daily. [facility] mirabegron 0 Yes [id number] 50mg Take 1 [facility] (MYRBETRIQ) 1-18 tablet by ity of 50 mg 00:00: mouth [place] tablet 00 daily. [facility] mirabegron 0 Yes [id number] 50mg Take 1 [facility] (MYRBETRIQ) 1-18 tablet by ity of 50 mg 00:00: mouth [place] tablet 00 daily. [facility] mirabegron 0 Yes [id number] 50mg Take 1 [facility] (MYRBETRIQ) 1-18 tablet by ity of 50 mg 00:00: mouth [place] tablet 00 daily. [facility] Branch mirabegron 0 Yes [id number] 50mg Take 1 [facility] (MYRBETRIQ) 1-18 tablet by ity of 50 mg 00:00: mouth [place] tablet 00 daily. [facility] mirabegron 0 Yes [id number] 50mg Take 1 [facility] (MYRBETRIQ) 1-18 tablet by ity of 50 mg 00:00: mouth [place] tablet 00 daily. [facility] mirabegron 0 Yes [id number] 50mg Take 1 [facility] (MYRBETRIQ) 1-18 tablet by ity of 50 mg 00:00: mouth [place] tablet 00 daily. [facility] mirabegron 0 Yes [id number] 50mg Take 1 [facility] (MYRBETRIQ) 1-18 tablet by ity of 50 mg 00:00: mouth [place] tablet 00 daily. [facility] mirabegron 0 Yes [id number] 50mg Take 1 [facility] (MYRBETRIQ) 1-18 tablet by ity of 50 mg 00:00: mouth [place] tablet 00 daily. [facility] mirabegron 0 Yes [id number] 50mg Take 1 [facility] (MYRBETRIQ) 1-18 tablet by ity of 50 mg 00:00: mouth [place] tablet 00 daily. [facility] Branch mirabegron 0 Yes [id number] 50mg Take 1 [facility] (MYRBETRIQ) 1-18 tablet by ity of 50 mg 00:00: mouth [place] tablet 00 daily. [facility] mirabegron 0 Yes [id number] 50mg Take 1 [facility] (MYRBETRIQ) 1-18 tablet by ity of 50 mg 00:00: mouth [place] tablet 00 daily. [facility] mirabegron 2021-0 Yes [id number] 50mg Take 1 [facility] (MYRBETRIQ) 1-18 tablet by ity of 50 mg 00:00: mouth [place] tablet 00 daily. [facility] mirabegron 2021-0 Yes [id number] 50mg Take 1 [facility] (MYRBETRIQ) 1-18 tablet by ity of 50 mg 00:00: mouth [place] tablet 00 daily. [facility] mirabegron 2021-0 Yes [id number] 50mg Take 1 [facility] (MYRBETRIQ) 1-18 tablet by ity of 50 mg 00:00: mouth [place] tablet 00 daily. [facility] mirabegron 0 Yes [id number] 50mg Take 1 [facility] (MYRBETRIQ) 1-18 tablet by ity of 50 mg 00:00: mouth [place] tablet 00 daily. [facility] mirabegron 0 Yes [id number] 50mg Take 1 [facility] (MYRBETRIQ) 1-18 tablet by ity of 50 mg 00:00: mouth [place] tablet 00 daily. [facility] mirabegron 0 Yes [id number] 50mg Take 1 [facility] (MYRBETRIQ) 1-18 tablet by ity of 50 mg 00:00: mouth [place] tablet 00 daily. [facility] mirabegron 0 Yes [id number] 50mg Take 1 [facility] (MYRBETRIQ) 1-18 tablet by ity of 50 mg 00:00: mouth [place] tablet 00 daily. [facility] mirabegron 0 Yes [id number] 50mg Take 1 [facility] (MYRBETRIQ) 1-18 tablet by ity of 50 mg 00:00: mouth [place] tablet 00 daily. [facility] mirabegron 0 Yes [id number] 50mg Take 1 [facility] (MYRBETRIQ) 1-18 tablet by ity of 50 mg 00:00: mouth [place] tablet 00 daily. [facility] mirabegron 0 Yes [id number] 50mg Take 1 [facility] (MYRBETRIQ) 1-18 tablet by ity of 50 mg 00:00: mouth [place] tablet 00 daily. [facility] mirabegron 0 Yes [id number] 50mg Take 1 [facility] (MYRBETRIQ) 1-18 tablet by ity of 50 mg 00:00: mouth [place] tablet 00 daily. [facility] mirabegron 2021-0 Yes [id number] 50mg Take 1 [facility] (MYRBETRIQ) 1-18 tablet by ity of 50 mg 00:00: mouth [place] tablet 00 daily. [facility] mirabegron 2021-0 Yes [id number] 50mg Take 1 [facility] (MYRBETRIQ) 1-18 tablet by ity of 50 mg 00:00: mouth [place] tablet 00 daily. [facility] mirabegron 0 Yes [id number] 50mg Take 1 [facility] (MYRBETRIQ) 1-18 tablet by ity of 50 mg 00:00: mouth [place] tablet 00 daily. [facility] mirabegron 0 Yes [id number] 50mg Take 1 [facility] (MYRBETRIQ) 1-18 tablet by ity of 50 mg 00:00: mouth [place] tablet 00 daily. [facility] mirabegron 0 Yes [id number] 50mg Take 1 [facility] (MYRBETRIQ) 1-18 tablet by ity of 50 mg 00:00: mouth [place] tablet 00 daily. [facility] mirabegron 0 Yes [id number] 50mg Take 1 [facility] (MYRBETRIQ) 1-18 tablet by ity of 50 mg 00:00: mouth [place] tablet 00 daily. [facility] mirabegron 0 Yes [id number] 50mg Take 1 [facility] (MYRBETRIQ) 1-18 tablet by ity of 50 mg 00:00: mouth [place] tablet 00 daily. [facility] mirabegron 0 Yes [id number] 50mg Take 1 [facility] (MYRBETRIQ) 1-18 tablet by ity of 50 mg 00:00: mouth [place] tablet 00 daily. [facility] mirabegron 0 Yes [id number] 50mg Take 1 [facility] (MYRBETRIQ) 1-18 tablet by ity of 50 mg 00:00: mouth [place] tablet 00 daily. [facility] mirabegron 0 Yes [id number] 50mg Take 1 [facility] (MYRBETRIQ) 1-18 tablet by ity of 50 mg 00:00: mouth [place] tablet 00 daily. [facility] mirabegron 0 Yes [id number] 50mg Take 1 [facility] (MYRBETRIQ) 1-18 tablet by ity of 50 mg 00:00: mouth [place] tablet 00 daily. [facility] mirabegron 0 Yes [id number] 50mg Take 1 [facility] (MYRBETRIQ) 1-18 tablet by ity of 50 mg 00:00: mouth [place] tablet 00 daily. [facility] mirabegron 0 Yes [id number] 50mg Take 1 [facility] (MYRBETRIQ) 1-18 tablet by ity of 50 mg 00:00: mouth [place] tablet 00 daily. [facility] mirabegron 0 Yes [id number] 50mg Take 1 [facility] (MYRBETRIQ) 1-18 tablet by ity of 50 mg 00:00: mouth [place] tablet 00 daily. [facility] mirabegron 0 Yes [id number] 50mg Take 1 [facility] (MYRBETRIQ) 1-18 tablet by ity of 50 mg 00:00: mouth [place] tablet 00 daily. [facility] mirabegron 0 Yes [id number] 50mg Take 1 [facility] (MYRBETRIQ) 1-18 tablet by ity of 50 mg 00:00: mouth [place] tablet 00 daily. [facility] mirabegron 0 Yes [id number] 50mg Take 1 [facility] (MYRBETRIQ) 1-18 tablet by ity of 50 mg 00:00: mouth [place] tablet 00 daily. [facility] mirabegron 0 Yes [id number] 50mg Take 1 [facility] (MYRBETRIQ) 1-18 tablet by ity of 50 mg 00:00: mouth [place] tablet 00 daily. [facility] mirabegron Yes [id number] 50mg Take 1 [facility] (MYRBETRIQ) 1-18 tablet by ity of 50 mg 00:00: mouth [place] tablet 00 daily. [facility] mirabegron 0 Yes [id number] 50mg Take 1 [facility] (MYRBETRIQ) 1-18 tablet by ity of 50 mg 00:00: mouth [place] tablet 00 daily. [facility] mirabegron 0 Yes [id number] 50mg Take 1 [facility] (MYRBETRIQ) 1-18 tablet by ity of 50 mg 00:00: mouth [place] tablet 00 daily. [facility] mirabegron 0 Yes [id number] 50mg Take 1 [facility] (MYRBETRIQ) 1-18 tablet by ity of 50 mg 00:00: mouth [place] tablet 00 daily. [facility] mirabegron Yes [id number] 50mg Take 1 [facility] (MYRBETRIQ) 1-18 tablet by ity of 50 mg 00:00: mouth [place] tablet 00 daily. [facility] mirabegron 2021- No [id number] 50mg Take 1 [facility] (MYRBETRIQ) 1-18 10-13 tablet by it y of 50 mg 00:00: 00:00 mouth [place] tablet 00 :00 daily. [facility] semaglutide 2020-09 Yes [id number] Inject [facility] (OZEMPIC) 2-01 0.25 mg ity of 0.25 mg or 00:00: under the [place] 0.5 mg(2 00 skin Medical mg/1.5 mL) weekly. [facility] semaglutide 2020-09 Yes [id number] Inject Univers (OZEMPIC) 2-01 0.25 mg ity of 0.25 mg or 00:00: under the [place] 0.5 mg(2 00 skin Medical mg/1.5 mL) weekly. [facility] semaglutide 2020-09 Yes [id number] Inject Univers (OZEMPIC) 2-01 0.25 mg ity of 0.25 mg or 00:00: under the [place] 0.5 mg(2 00 skin Medical mg/1.5 mL) weekly. [facility] semaglutide 2020-09 Yes [id number] Inject [facility] (OZEMPIC) 2-01 0.25 mg ity of 0.25 mg or 00:00: under the [place] 0.5 mg(2 00 skin Medical mg/1.5 mL) [facility]. [facility] [id number] Inject [facility] (OZEMPIC) 2-01 0.25 mg ity of 0.25 mg or 00:00: under the [place] 0.5 mg(2 00 skin Medical mg/1.5 mL) weekly. [facility] semaglutide 2020-09 Yes [id number] Inject [facility] (OZEMPIC) 2-01 0.25 mg ity of 0.25 mg or 00:00: under the [place] 0.5 mg(2 00 skin Medical mg/1.5 mL) weekly. [facility] semaglutide 2020-09 Yes [id number] Inject Univers (OZEMPIC) 2-01 0.25 mg ity of 0.25 mg or 00:00: under the [place] 0.5 mg(2 00 skin Medical mg/1.5 mL) weekly. [facility] semaglutide 2020-09 Yes [id number] Inject [facility] (OZEMPIC) 2-01 0.25 mg ity of 0.25 mg or 00:00: under the [place] 0.5 mg(2 00 skin Medical mg/1.5 mL) weekly. [facility] semaglutide 2020-09 Yes [id number] Inject [facility] (OZEMPIC) 2-01 0.25 mg ity of 0.25 mg or 00:00: under the [place] 0.5 mg(2 00 skin Medical mg/1.5 mL) weekly. [facility] semaglutide 2020-09 Yes [id number] Inject [facility] (OZEMPIC) 2-01 0.25 mg ity of 0.25 mg or 00:00: under the [place] 0.5 mg(2 00 skin Medical mg/1.5 mL) weekly. [facility] semaglutide 2020-09 Yes [id number] Inject [facility] (OZEMPIC) 2-01 0.25 mg ity of 0.25 mg or 00:00: under the [place] 0.5 mg(2 00 skin Medical mg/1.5 mL) weekly. [facility] semaglutide 2020-09 Yes [id number] Inject [facility] (OZEMPIC) 2-01 0.25 mg ity of 0.25 mg or 00:00: under the [place] 0.5 mg(2 00 skin Medical mg/1.5 mL) weekly. [facility] semaglutide 2020-09 Yes [id number] Inject [facility] (OZEMPIC) 2-01 0.25 mg ity of 0.25 mg or 00:00: under the [place] 0.5 mg(2 00 skin Medical mg/1.5 mL) weekly. [facility] semaglutide 2020-09 Yes [id number] Inject [facility] (OZEMPIC) 2-01 0.25 mg ity of 0.25 mg or 00:00: under the [place] 0.5 mg(2 00 skin Medical mg/1.5 mL) weekly. [facility] semaglutide 2020-09 Yes [id number] Inject [facility] (OZEMPIC) 2-01 0.25 mg ity of 0.25 mg or 00:00: under the [place] 0.5 mg(2 00 skin Medical mg/1.5 mL) weekly. [facility] semaglutide 2020-09 Yes [id number] Inject [facility] (OZEMPIC) 2-01 0.25 mg ity of 0.25 mg or 00:00: under the [place] 0.5 mg(2 00 skin Medical mg/1.5 mL) weekly. Branch [facility] semaglutide 2020-09 Yes [id number] Inject [facility] (OZEMPIC) 2-01 0.25 mg ity of 0.25 mg or 00:00: under the [place] 0.5 mg(2 00 skin Medical mg/1.5 mL) weekly. Branch [facility] semaglutide 2020-09 Yes [id number] Inject [facility] (OZEMPIC) 2-01 0.25 mg ity of 0.25 mg or 00:00: under the [place] 0.5 mg(2 00 skin Medical mg/1.5 mL) weekly. Branch [facility] semaglutide 2020-09 Yes [id number] Inject [facility] (OZEMPIC) 2-01 0.25 mg ity of 0.25 mg or 00:00: under the [place] 0.5 mg(2 00 skin Medical mg/1.5 mL) weekly. [facility] semaglutide 2020-09 Yes [id number] Inject [facility] (OZEMPIC) 2-01 0.25 mg ity of 0.25 mg or 00:00: under the [place] 0.5 mg(2 00 skin Medical mg/1.5 mL) weekly. [facility] semaglutide 2020-09 Yes [id number] Inject [facility] (OZEMPIC) 2-01 0.25 mg ity of 0.25 mg or 00:00: under the [place] 0.5 mg(2 00 skin Medical mg/1.5 mL) weekly. Branch [facility] semaglutide 2020-09 Yes [id number] Inject [facility] (OZEMPIC) 2-01 0.25 mg ity of 0.25 mg or 00:00: under the [place] 0.5 mg(2 00 skin Medical mg/1.5 mL) weekly. Branch [facility] semaglutide 2020-09 Yes [id number] Inject [facility] (OZEMPIC) 2-01 0.25 mg ity of 0.25 mg or 00:00: under the [place] 0.5 mg(2 00 skin Medical mg/1.5 mL) weekly. Branch [facility] semaglutide 2020-09 Yes [id number] Inject [facility] (OZEMPIC) 2-01 0.25 mg ity of 0.25 mg or 00:00: under the [place] 0.5 mg(2 00 skin Medical mg/1.5 mL) weekly. Branch [facility] semaglutide 2020-09 Yes [id number] Inject [facility] (OZEMPIC) 2-01 0.25 mg ity of 0.25 mg or 00:00: under the [place] 0.5 mg(2 00 skin Medical mg/1.5 mL) weekly. Branch [facility] semaglutide 2020-09 Yes [id number] Inject [facility] (OZEMPIC) 2-01 0.25 mg ity of 0.25 mg or 00:00: under the [place] 0.5 mg(2 00 skin Medical mg/1.5 mL) weekly. Branch [facility] semaglutide 2020-09 Yes [id number] Inject [facility] (OZEMPIC) 2-01 0.25 mg ity of 0.25 mg or 00:00: under the [place] 0.5 mg(2 00 skin Medical mg/1.5 mL) weekly. Branch [facility] semaglutide 2020-09 Yes [id number] Inject [facility] (OZEMPIC) 2-01 0.25 mg ity of 0.25 mg or 00:00: under the [place] 0.5 mg(2 00 skin Medical mg/1.5 mL) weekly. Branch [facility] semaglutide 2020-09 Yes [id number] Inject [facility] (OZEMPIC) 2-01 0.25 mg ity of 0.25 mg or 00:00: under the [place] 0.5 mg(2 00 skin Medical mg/1.5 mL) weekly. Branch [facility] semaglutide 2020-09 Yes [id number] Inject [facility] (OZEMPIC) 2-01 0.25 mg ity of 0.25 mg or 00:00: under the [place] 0.5 mg(2 00 skin Medical mg/1.5 mL) weekly. Branch [facility] semaglutide 2020-09 Yes [id number] Inject [facility] (OZEMPIC) 2-01 0.25 mg ity of 0.25 mg or 00:00: under the [place] 0.5 mg(2 00 skin Medical mg/1.5 mL) weekly. Branch [facility] semaglutide 2020-09 Yes [id number] Inject [facility] (OZEMPIC) 2-01 0.25 mg ity of 0.25 mg or 00:00: under the [place] 0.5 mg(2 00 skin Medical mg/1.5 mL) weekly. Branch [facility] semaglutide 2020-09 Yes [id number] Inject [facility] (OZEMPIC) 2-01 0.25 mg ity of 0.25 mg or 00:00: under the [place] 0.5 mg(2 00 skin Medical mg/1.5 mL) weekly. Branch [facility] semaglutide 2020-09 Yes [id number] Inject [facility] (OZEMPIC) 2-01 0.25 mg ity of 0.25 mg or 00:00: under the [place] 0.5 mg(2 00 skin Medical mg/1.5 mL) weekly. Branch [facility] semaglutide 2020-09 Yes [id number] Inject [facility] (OZEMPIC) 2-01 0.25 mg ity of 0.25 mg or 00:00: under the [place] 0.5 mg(2 00 skin Medical mg/1.5 mL) weekly. Branch [facility] semaglutide 2020-09 Yes [id number] Inject [facility] (OZEMPIC) 2-01 0.25 mg ity of 0.25 mg or 00:00: under the [place] 0.5 mg(2 00 skin Medical mg/1.5 mL) weekly. Branch [facility] semaglutide 2020-09 Yes [id number] Inject [facility] (OZEMPIC) 2-01 0.25 mg ity of 0.25 mg or 00:00: under the [place] 0.5 mg(2 00 skin Medical mg/1.5 mL) weekly. Branch [facility] semaglutide 2020-09 Yes [id number] Inject [facility] (OZEMPIC) 2-01 0.25 mg ity of 0.25 mg or 00:00: under the [place] 0.5 mg(2 00 skin Medical mg/1.5 mL) weekly. Branch [facility] semaglutide 2020-09 Yes [id number] Inject [facility] (OZEMPIC) 2-01 0.25 mg ity of 0.25 mg or 00:00: under the [place] 0.5 mg(2 00 skin Medical mg/1.5 mL) weekly. Branch [facility] semaglutide 2020-09 Yes [id number] Inject [facility] (OZEMPIC) 2-01 0.25 mg ity of 0.25 mg or 00:00: under the [place] 0.5 mg(2 00 skin Medical mg/1.5 mL) weekly. Branch [facility] semaglutide 2020-09 Yes [id number] Inject [facility] (OZEMPIC) 2-01 0.25 mg ity of 0.25 mg or 00:00: under the [place] 0.5 mg(2 00 skin Medical mg/1.5 mL) weekly. Branch [facility] semaglutide 2020-09 Yes [id number] Inject [facility] (OZEMPIC) 2-01 0.25 mg ity of 0.25 mg or 00:00: under the [place] 0.5 mg(2 00 skin Medical mg/1.5 mL) weekly. Branch [facility] semaglutide 2020-09 Yes [id number] Inject [facility] (OZEMPIC) 2-01 0.25 mg ity of 0.25 mg or 00:00: under the [place] 0.5 mg(2 00 skin Medical mg/1.5 mL) weekly. Branch [facility] semaglutide 2020-09 Yes [id number] Inject [facility] (OZEMPIC) 2-01 0.25 mg ity of 0.25 mg or 00:00: under the [place] 0.5 mg(2 00 skin Medical mg/1.5 mL) weekly. Branch [facility] semaglutide 2020-09 Yes [id number] Inject [facility] (OZEMPIC) 2-01 0.25 mg ity of 0.25 mg or 00:00: under the [place] 0.5 mg(2 00 skin Medical mg/1.5 mL) weekly. Branch [facility] semaglutide 2020-09 Yes [id number] Inject [facility] (OZEMPIC) 2-01 0.25 mg ity of 0.25 mg or 00:00: under the [place] 0.5 mg(2 00 skin Medical mg/1.5 mL) weekly. Branch Ij semaglutide 2020-09 Yes [id number] Inject [facility] (OZEMPIC) 2-01 0.25 mg ity of 0.25 mg or 00:00: under the [place] 0.5 mg(2 00 skin Medical mg/1.5 mL) weekly. Branch [facility] semaglutide 2020-09 Yes [id number] Inject [facility] (OZEMPIC) 2- 0.25 mg ity of 0.25 mg or 00:00: under the [place] 0.5 mg(2 00 skin Medical mg/1.5 mL) [facility] [id number] Inject [facility] (OZEMPIC) 2 10- 0.25 mg ity of 0.25 mg or 00:00: 00:00 under the [place] 0.5 mg(2 00 :00 skin Medical mg/1.5 mL) weekly. Branch Ij metformin 2020-09- No [id number] 500mg Take 1 [facility] ER 500 mg 10-27 tablet by ity of 24 hr 00:00: 00:00 mouth [place] tablet 00 :00 daily with Medical breakfast. Branch STOP REGULAR METFORMIN. metformin 2020-09- No [id number] 500mg Take 1 [facility] ER 500 mg 10-27 tablet by ity of 24 hr 00:00: 00:00 mouth [place] tablet 00 :00 daily with Medical breakfast. Branch STOP REGULAR METFORMIN. cyanocobala 2020-09 Yes [id number] 1000ug 1 mL by [facility] min 1,000 1-09 Intramuscu ity of mcg/mL 00:00: lar route [place] injection 00 every 2 Medical (two) Branch weeks. levothyroxi 2020-09 Yes [id number] 50ug Take 1 [facility] ne 50 mcg 1-09 tablet by ity o f tablet 00:00: mouth [place] 00 every Medical morning. Branch fluticasone 2020-09 Yes [id number] 2{puff} Inhale 2 [facility] propionate 1-09 Puffs ity of (FLOVENT 00:00: every 12 [place] HFA) 110 00 (twelve) Medical mcg/actuati hours. Branch on inhaler Rinse mouth after each use. levalbutero 2020-09 Yes [id number] .63mg Inhale Univers l 0.63 mg/3 1-09 0.63 mg 3 ity of mL 00:00: (three) [place] nebulizer 00 times Medical solution daily as Branch needed for Wheezing or Shortness of Breath. losartan 50 2020-09 Yes [id number] 50mg Take 1 [facility] mg tablet -09 tablet by ity o f 00:00: mouth 2 [place] 00 (two) Medical times Branch daily. clotrimazol 2020-09 Yes [id number] Apply to [facility] e-betametha 09 area(s) 2 ity of sone cream 00:00: (two) [place] 00 times Medical daily. Branch cyclobenzap 2020-09 Yes [id number] TAKE 1 [facility] rine 5 mg 10-04 TABLET BY ity o f tablet 00:00: MOUTH [place] 00 EVERY 8 Medical HOURS Branch NEEDED econazole 2020-09 Yes [id number] Apply to [facility] nitrate 1 % 10-04 area(s) 2 ity of cream 00:00: (two) [place] 00 times Medical daily. Branch albuterol 2020-09 Yes [id number] 2{puff} Inhale 2 [facility] (PROAIR 1-09 Puffs ity of HFA) 90 00:00: every 6 [place] mcg/actuati 00 (six) Medical on inhaler hours as Branc h needed for Wheezing or Shortness of Breath. triamcinolo 2020-09 Yes [id number] Apply to [facility] ne 0.025 % 10-04 area(s) 3 ity of ointment 00:00: (three) [place] 00 times Medical daily. For Branch itching diltiazem 2020-09 Yes [id number] 120mg Take 1 U nivers (CARTIA XT) -09 capsule by it y of 120 mg 24 00:00: mouth 2 [place] hr capsule 00 (two) Medical times Branch daily. cyanocobala 2020-09 Yes [id number] 1000ug 1 mL by [facility] min 1,000 -09 Intramuscu ity of mcg/mL 00:00: lar route [place] injection 00 every 2 Medical (two) Branch weeks. levothyroxi 2020-09 Yes [id number] 50ug Take 1 [facility] ne 50 mcg 1-09 tablet by ity o f tablet 00:00: mouth [place] 00 every Medical morning. Branch fluticasone 2020-09 Yes [id number] 2{puff} Inhale 2 [facility] propionate 1-09 Puffs ity of (FLOVENT 00:00: every 12 [place] HFA) 110 00 (twelve) Medical mcg/actuati hours. Branch on inhaler Rinse mouth after each use. levalbutero 2020-09 Yes [id number] .63mg Inhale [facility] l 0.63 mg/3 1-09 0.63 mg 3 ity of mL 00:00: (three) [place] nebulizer 00 times Medical solution daily as Branch needed for Wheezing or Shortness of Breath. losartan 50 2020-09 Yes [id number] 50mg Take 1 [facility] mg tablet 1-09 tablet by ity o f 00:00: mouth 2 [place] 00 (two) Medical times Branch daily. clotrimazol 2020-09 Yes [id number] Apply to [facility] e-betametha -09 area(s) 2 ity of sone cream 00:00: (two) [place] 00 times Medical daily. Branch cyclobenzap 2020-09 Yes [id number] TAKE 1 [facility] rine 5 mg 1-09 TABLET BY ity o f tablet 00:00: MOUTH [place] 00 EVERY 8 Medical HOURS Branch NEEDED econazole 2020-09 Yes [id number] Apply to [facility] nitrate 1 % 09 area(s) 2 ity of cream 00:00: (two) [place] 00 times Medical daily. Branch albuterol 2020-09 Yes [id number] 2{puff} Inhale 2 [facility] (PROAIR 1-09 Puffs ity of HFA) 90 00:00: every 6 [place] mcg/actuati 00 (six) Medical on inhaler hours as Branc h needed for Wheezing or Shortness of Breath. triamcinolo 2020-09 Yes [id number] Apply to [facility] ne 0.025 % -09 area(s) 3 ity of ointment 00:00: (three) [place] 00 times Medical daily. For Branch itching diltiazem 2020-09 Yes [id number] 120mg Take 1 U nivers (CARTIA XT) 1-09 capsule by it y of 120 mg 24 00:00: mouth 2 [place] hr capsule 00 (two) Medical times Branch daily. cyanocobala 2020-09 Yes [id number] 1000ug 1 mL by [facility] min 1,000 1-09 Intramuscu ity of mcg/mL 00:00: lar route [place] injection 00 every 2 Medical (two) Branch weeks. levothyroxi 2020-09 Yes [id number] 50ug Take 1 [facility] ne 50 mcg 1-09 tablet by ity o f tablet 00:00: mouth [place] 00 every Medical morning. Branch fluticasone 2020-09 Yes [id number] 2{puff} Inhale 2 [facility] propionate 1-09 Puffs ity of (FLOVENT 00:00: every 12 [place] HFA) 110 00 (twelve) Medical mcg/actuati hours. Branch on inhaler Rinse mouth after each use. levalbutero 2020-09 Yes [id number] .63mg Inhale [facility] l 0.63 mg/3 1-09 0.63 mg 3 ity of mL 00:00: (three) [place] nebulizer 00 times Medical solution daily as Branch needed for Wheezing or Shortness of Breath. losartan 50 2020-09 Yes [id number] 50mg Take 1 [facility] mg tablet -09 tablet by ity o f 00:00: mouth 2 [place] 00 (two) Medical times Branch daily. clotrimazol 2020-09 Yes [id number] Apply to [facility] e-betametha -09 area(s) 2 ity of sone cream 00:00: (two) [place] 00 times Medical daily. Branch cyclobenzap 2020-09 Yes [id number] TAKE 1 [facility] rine 5 mg 1-09 TABLET BY ity o f tablet 00:00: MOUTH [place] 00 EVERY 8 Medical HOURS Branch NEEDED econazole 2020-09 Yes [id number] Apply to [facility] nitrate 1 % -09 area(s) 2 ity of cream 00:00: (two) [place] 00 times Medical daily. Branch albuterol 2020-09 Yes [id number] 2{puff} Inhale 2 [facility] (PROAIR 1-09 Puffs ity of HFA) 90 00:00: every 6 [place] mcg/actuati 00 (six) Medical on inhaler hours as Branc h needed for Wheezing or Shortness of Breath. triamcinolo 2020-09 Yes [id number] Apply to [facility] ne 0.025 % 1-09 area(s) 3 ity of ointment 00:00: (three) [place] 00 times Medical daily. For Branch itching diltiazem 2020-09 Yes [id number] 120mg Take 1 U nivers (CARTIA XT) 09 capsule by it y of 120 mg 24 00:00: mouth 2 [place] hr capsule 00 (two) Medical times Branch daily. cyanocobala 2020-09 Yes [id number] 1000ug 1 mL by [facility] min 1,000 09 Intramuscu ity of mcg/mL 00:00: lar route [place] injection 00 every 2 Medical (two) Branch weeks. levothyroxi 2020-09 Yes [id number] 50ug Take 1 [facility] ne 50 mcg 10-04 tablet by ity o f tablet 00:00: mouth [place] 00 every Medical morning. Branch fluticasone 2020-09 Yes [id number] 2{puff} Inhale 2 [facility] propionate -09 Puffs ity of (FLOVENT 00:00: every 12 [place] HFA) 110 00 (twelve) Medical mcg/actuati hours. Branch on inhaler Rinse mouth after each use. levalbutero 2020-09 Yes [id number] .63mg Inhale [facility] l 0.63 mg/3 -09 0.63 mg 3 ity of mL 00:00: (three) [place] nebulizer 00 times Medical solution daily as Branch needed for Wheezing or Shortness of Breath. losartan 50 2020-09 Yes [id number] 50mg Take 1 [facility] mg tablet 09 tablet by ity o f 00:00: mouth 2 [place] 00 (two) Medical times Branch daily. clotrimazol 2020-09 Yes [id number] Apply to Univers e-betametha 10-04 area(s) 2 ity of sone cream 00:00: (two) [place] 00 times Medical daily. Branch cyclobenzap 2020-09 Yes [id number] TAKE 1 [facility] rine 5 mg -09 TABLET BY ity o f tablet 00:00: MOUTH [place] 00 EVERY 8 Medical HOURS Branch NEEDED econazole 2020-09 Yes [id number] Apply to [facility] nitrate 1 % 09 area(s) 2 ity of cream 00:00: (two) [place] 00 times Medical daily. Branch albuterol 2020-09 Yes [id number] 2{puff} Inhale 2 [facility] (PROAIR 1-09 Puffs ity of HFA) 90 00:00: every 6 [place] mcg/actuati 00 (six) Medical on inhaler hours as Branc h needed for Wheezing or Shortness of Breath. triamcinolo 2020-09 Yes [id number] Apply to [facility] ne 0.025 % 09 area(s) 3 ity of ointment 00:00: (three) [place] 00 times Medical daily. For Branch itching diltiazem 2020-09 Yes [id number] 120mg Take 1 U nivers (CARTIA XT) 09 capsule by it y of 120 mg 24 00:00: mouth 2 [place] hr capsule 00 (two) Medical times Branch daily. cyanocobala 2020-09 Yes [id number] 1000ug 1 mL by [facility] min 1,000 09 Intramuscu ity of mcg/mL 00:00: lar route [place] injection 00 every 2 Medical (two) Branch weeks. levothyroxi 2020-09 Yes [id number] 50ug Take 1 [facility] ne 50 mcg 10-04 tablet by ity o f tablet 00:00: mouth [place] 00 every Medical morning. Branch fluticasone 2020-09 Yes [id number] 2{puff} Inhale 2 [facility] propionate 1-09 Puffs ity of (FLOVENT 00:00: every 12 [place] HFA) 110 00 (twelve) Medical mcg/actuati hours. Branch on inhaler Rinse mouth after each use. levalbutero 2020-09 Yes [id number] .63mg Inhale [facility] l 0.63 mg/3 1-09 0.63 mg 3 ity of mL 00:00: (three) [place] nebulizer 00 times Medical solution daily as Branch needed for Wheezing or Shortness of Breath. clotrimazol 2020-09 Yes [id number] Apply to [facility] e-betametha -09 area(s) 2 ity of sone cream 00:00: (two) [place] 00 times Medical daily. Branch cyclobenzap 2020-09 Yes [id number] TAKE 1 [facility] rine 5 mg -09 TABLET BY ity o f tablet 00:00: MOUTH [place] 00 EVERY 8 Medical HOURS Branch NEEDED econazole 2020-09 Yes [id number] Apply to [facility] nitrate 1 % 1-09 area(s) 2 ity of cream 00:00: (two) [place] 00 times Medical daily. Branch albuterol 2020-09 Yes [id number] 2{puff} Inhale 2 [facility] (PROAIR 1-09 Puffs ity of HFA) 90 00:00: every 6 [place] mcg/actuati 00 (six) Medical on inhaler hours as Branc h needed for Wheezing or Shortness of Breath. triamcinolo 2020-09 Yes [id number] Apply to [facility] ne 0.025 % -09 area(s) 3 ity of ointment 00:00: (three) [place] 00 times Medical daily. For Branch itching cyanocobala 2020-09 Yes [id number] 1000ug 1 mL by [facility] min 1,000 -09 Intramuscu ity of mcg/mL 00:00: lar route [place] injection 00 every 2 Medical (two) Branch weeks. levothyroxi 2020-09 Yes [id number] 50ug Take 1 [facility] ne 50 mcg -09 tablet by ity o f tablet 00:00: mouth [place] 00 every Medical morning. Branch fluticasone 2020-09 Yes [id number] 2{puff} Inhale 2 [facility] propionate 1-09 Puffs ity of (FLOVENT 00:00: every 12 [place] HFA) 110 00 (twelve) Medical mcg/actuati hours. Branch on inhaler Rinse mouth after each use. levalbutero 2020-09 Yes [id number] .63mg Inhale [facility] l 0.63 mg/3 1-09 0.63 mg 3 ity of mL 00:00: (three) [place] nebulizer 00 times Medical solution daily as Branch needed for Wheezing or Shortness of Breath. clotrimazol 2020-09 Yes [id number] Apply to [facility] e-betametha -09 area(s) 2 ity of sone cream 00:00: (two) [place] 00 times Medical daily. Branch cyclobenzap 2020-09 Yes [id number] TAKE 1 [facility] rine 5 mg -09 TABLET BY ity o f tablet 00:00: MOUTH [place] 00 EVERY 8 Medical HOURS Branch NEEDED econazole 2020-09 Yes [id number] Apply to [facility] nitrate 1 % -09 area(s) 2 ity of cream 00:00: (two) [place] 00 times Medical daily. Branch albuterol 2020-09 Yes [id number] 2{puff} Inhale 2 [facility] (PROAIR 1-09 Puffs ity of HFA) 90 00:00: every 6 [place] mcg/actuati 00 (six) Medical on inhaler hours as Branc h needed for Wheezing or Shortness of Breath. triamcinolo 2020-09 Yes [id number] Apply to [facility] ne 0.025 % 1-09 area(s) 3 ity of ointment 00:00: (three) [place] 00 times Medical daily. For Branch itching cyanocobala 2020-09 Yes [id number] 1000ug 1 mL by [facility] min 1,000 -09 Intramuscu ity of mcg/mL 00:00: lar route [place] injection 00 every 2 Medical (two) Branch weeks. levothyroxi 2020-09 Yes [id number] 50ug Take 1 [facility] ne 50 mcg -09 tablet by ity o f tablet 00:00: mouth [place] 00 every Medical morning. Branch fluticasone 2020-09 Yes [id number] 2{puff} Inhale 2 [facility] propionate 1-09 Puffs ity of (FLOVENT 00:00: every 12 [place] HFA) 110 00 (twelve) Medical mcg/actuati hours. Branch on inhaler Rinse mouth after each use. levalbutero 2020-09 Yes [id number] .63mg Inhale [facility] l 0.63 mg/3 1-09 0.63 mg 3 ity of mL 00:00: (three) [place] nebulizer 00 times Medical solution daily as Branch needed for Wheezing or Shortness of Breath. clotrimazol 2020-09 Yes [id number] Apply to [facility] e-betametha -09 area(s) 2 ity of sone cream 00:00: (two) [place] 00 times Medical daily. Branch cyclobenzap 2020-09 Yes [id number] TAKE 1 [facility] rine 5 mg 1-09 TABLET BY ity o f tablet 00:00: MOUTH [place] 00 EVERY 8 Medical HOURS Branch NEEDED econazole 2020-09 Yes [id number] Apply to [facility] nitrate 1 % -09 area(s) 2 ity of cream 00:00: (two) [place] 00 times Medical daily. Branch albuterol 2020-09 Yes [id number] 2{puff} Inhale 2 [facility] (PROAIR 1-09 Puffs ity of HFA) 90 00:00: every 6 [place] mcg/actuati 00 (six) Medical on inhaler hours as Branc h needed for Wheezing or Shortness of Breath. triamcinolo 2020-09 Yes [id number] Apply to [facility] ne 0.025 % 10-04 area(s) 3 ity of ointment 00:00: (three) [place] 00 times Medical daily. For Branch itching cyanocobala 2020-09 Yes [id number] 1000ug 1 mL by [facility] min 1,000 09 Intramuscu ity of mcg/mL 00:00: lar route [place] injection 00 every 2 Medical (two) Branch weeks. levothyroxi 2020-09 Yes [id number] 50ug Take 1 [facility] ne 50 mcg -09 tablet by ity o f tablet 00:00: mouth [place] 00 every Medical morning. Branch fluticasone 2020-09 Yes [id number] 2{puff} Inhale 2 [facility] propionate -09 Puffs ity of (FLOVENT 00:00: every 12 [place] HFA) 110 00 (twelve) Medical mcg/actuati hours. Branch on inhaler Rinse mouth after each use. levalbutero 2020-09 Yes [id number] .63mg Inhale [facility] l 0.63 mg/3 -09 0.63 mg 3 ity of mL 00:00: (three) [place] nebulizer 00 times Medical solution daily as Branch needed for Wheezing or Shortness of Breath. clotrimazol 2020-09 Yes [id number] Apply to [facility] e-betametha 10-04 area(s) 2 ity of sone cream 00:00: (two) [place] 00 times Medical daily. Branch cyclobenzap 2020-09 Yes [id number] TAKE 1 [facility] rine 5 mg -09 TABLET BY ity o f tablet 00:00: MOUTH [place] 00 EVERY 8 Medical HOURS Branch NEEDED econazole 2020-09 Yes [id number] Apply to [facility] nitrate 1 % -09 area(s) 2 ity of cream 00:00: (two) [place] 00 times Medical daily. Branch albuterol 2020-09 Yes [id number] 2{puff} Inhale 2 [facility] (PROAIR 1-09 Puffs ity of HFA) 90 00:00: every 6 [place] mcg/actuati 00 (six) Medical on inhaler hours as Branc h needed for Wheezing or Shortness of Breath. triamcinolo 2020-09 Yes [id number] Apply to [facility] ne 0.025 % 1-09 area(s) 3 ity of ointment 00:00: (three) [place] 00 times Medical daily. For Branch itching cyanocobala 2020-09 Yes [id number] 1000ug 1 mL by [facility] min 1,000 -09 Intramuscu ity of mcg/mL 00:00: lar route [place] injection 00 every 2 Medical (two) Branch weeks. levothyroxi 2020-09 Yes [id number] 50ug Take 1 [facility] ne 50 mcg 1-09 tablet by ity o f tablet 00:00: mouth [place] 00 every Medical morning. Branch fluticasone 2020-09 Yes [id number] 2{puff} Inhale 2 [facility] propionate 1-09 Puffs ity of (FLOVENT 00:00: every 12 [place] HFA) 110 00 (twelve) Medical mcg/actuati hours. Branch on inhaler Rinse mouth after each use. levalbutero 2020-09 Yes [id number] .63mg Inhale [facility] l 0.63 mg/3 1-09 0.63 mg 3 ity of mL 00:00: (three) [place] nebulizer 00 times Medical solution daily as Branch needed for Wheezing or Shortness of Breath. clotrimazol 2020-09 Yes [id number] Apply to [facility] e-betametha 09 area(s) 2 ity of sone cream 00:00: (two) [place] 00 times Medical daily. Branch cyclobenzap 2020-09 Yes [id number] TAKE 1 [facility] rine 5 mg -09 TABLET BY ity o f tablet 00:00: MOUTH [place] 00 EVERY 8 Medical HOURS Branch NEEDED econazole 2020-09 Yes [id number] Apply to [facility] nitrate 1 % -09 area(s) 2 ity of cream 00:00: (two) [place] 00 times Medical daily. Branch albuterol 2020-09 Yes [id number] 2{puff} Inhale 2 [facility] (PROAIR 1-09 Puffs ity of HFA) 90 00:00: every 6 [place] mcg/actuati 00 (six) Medical on inhaler hours as Branc h needed for Wheezing or Shortness of Breath. triamcinolo 2020-09 Yes [id number] Apply to [facility] ne 0.025 % -09 area(s) 3 ity of ointment 00:00: (three) [place] 00 times Medical daily. For Branch itching cyanocobala 2020-09 Yes [id number] 1000ug 1 mL by [facility] min 1,000 -09 Intramuscu ity of mcg/mL 00:00: lar route [place] injection 00 every 2 Medical (two) Branch weeks. levothyroxi 2020-09 Yes [id number] 50ug Take 1 [facility] ne 50 mcg -09 tablet by ity o f tablet 00:00: mouth [place] 00 every Medical morning. Branch fluticasone 2020-09 Yes [id number] 2{puff} Inhale 2 [facility] propionate -09 Puffs ity of (FLOVENT 00:00: every 12 [place] HFA) 110 00 (twelve) Medical mcg/actuati hours. Branch on inhaler Rinse mouth after each use. levalbutero 2020-09 Yes [id number] .63mg Inhale [facility] l 0.63 mg/3 -09 0.63 mg 3 ity of mL 00:00: (three) [place] nebulizer 00 times Medical solution daily as Branch needed for Wheezing or Shortness of Breath. clotrimazol 2020-09 Yes [id number] Apply to [facility] e-betametha 10-04 area(s) 2 ity of sone cream 00:00: (two) [place] 00 times Medical daily. Branch cyclobenzap 2020-09 Yes [id number] TAKE 1 [facility] rine 5 mg -09 TABLET BY ity o f tablet 00:00: MOUTH [place] 00 EVERY 8 Medical HOURS Branch NEEDED econazole 2020-09 Yes [id number] Apply to [facility] nitrate 1 % 09 area(s) 2 ity of cream 00:00: (two) [place] 00 times Medical daily. Branch albuterol 2020-09 Yes [id number] 2{puff} Inhale 2 [facility] (PROAIR 1-09 Puffs ity of HFA) 90 00:00: every 6 [place] mcg/actuati 00 (six) Medical on inhaler hours as Branc h needed for Wheezing or Shortness of Breath. triamcinolo 2020-09 Yes [id number] Apply to [facility] ne 0.025 % -09 area(s) 3 ity of ointment 00:00: (three) [place] 00 times Medical daily. For Branch itching cyanocobala 2020-09 Yes [id number] 1000ug 1 mL by [facility] min 1,000 -09 Intramuscu ity of mcg/mL 00:00: lar route [place] injection 00 every 2 Medical (two) Branch weeks. levothyroxi 2020-09 Yes [id number] 50ug Take 1 [facility] ne 50 mcg -09 tablet by ity o f tablet 00:00: mouth [place] 00 every Medical morning. Branch fluticasone 2020-09 Yes [id number] 2{puff} Inhale 2 [facility] propionate 1-09 Puffs ity of (FLOVENT 00:00: every 12 [place] HFA) 110 00 (twelve) Medical mcg/actuati hours. Branch on inhaler Rinse mouth after each use. levalbutero 2020-09 Yes [id number] .63mg Inhale [facility] l 0.63 mg/3 -09 0.63 mg 3 ity of mL 00:00: (three) [place] nebulizer 00 times Medical solution daily as Branch needed for Wheezing or Shortness of Breath. clotrimazol 2020-09 Yes [id number] Apply to [facility] e-betametha 10-04 area(s) 2 ity of sone cream 00:00: (two) [place] 00 times Medical daily. Branch cyclobenzap 2020-09 Yes [id number] TAKE 1 [facility] rine 5 mg -09 TABLET BY ity o f tablet 00:00: MOUTH [place] 00 EVERY 8 Medical HOURS Branch NEEDED econazole 2020-09 Yes [id number] Apply to [facility] nitrate 1 % 09 area(s) 2 ity of cream 00:00: (two) [place] 00 times Medical daily. Branch albuterol 2020-09 Yes [id number] 2{puff} Inhale 2 [facility] (PROAIR 1-09 Puffs ity of HFA) 90 00:00: every 6 [place] mcg/actuati 00 (six) Medical on inhaler hours as Branc h needed for Wheezing or Shortness of Breath. triamcinolo 2020-09 Yes [id number] Apply to [facility] ne 0.025 % -09 area(s) 3 ity of ointment 00:00: (three) [place] 00 times Medical daily. For Branch itching cyanocobala 2020-09 Yes [id number] 1000ug 1 mL by [facility] min 1,000 1-09 Intramuscu ity of mcg/mL 00:00: lar route [place] injection 00 every 2 Medical (two) Branch weeks. levothyroxi 2020-09 Yes [id number] 50ug Take 1 [facility] ne 50 mcg 1-09 tablet by ity o f tablet 00:00: mouth [place] 00 every Medical morning. Branch fluticasone 2020-09 Yes [id number] 2{puff} Inhale 2 [facility] propionate 1-09 Puffs ity of (FLOVENT 00:00: every 12 [place] HFA) 110 00 (twelve) Medical mcg/actuati hours. Branch on inhaler Rinse mouth after each use. levalbutero 2020-09 Yes [id number] .63mg Inhale [facility] l 0.63 mg/3 1-09 0.63 mg 3 ity of mL 00:00: (three) [place] nebulizer 00 times Medical solution daily as Branch needed for Wheezing or Shortness of Breath. clotrimazol 2020-09 Yes [id number] Apply to [facility] e-betametha 1-09 area(s) 2 ity of sone cream 00:00: (two) [place] 00 times Medical daily. Branch cyclobenzap 2020-09 Yes [id number] TAKE 1 [facility] rine 5 mg 1-09 TABLET BY ity o f tablet 00:00: MOUTH [place] 00 EVERY 8 Medical HOURS Branch NEEDED econazole 2020-09 Yes [id number] Apply to [facility] nitrate 1 % 1-09 area(s) 2 ity of cream 00:00: (two) [place] 00 times Medical daily. Branch albuterol 2020-09 Yes [id number] 2{puff} Inhale 2 [facility] (PROAIR 1-09 Puffs ity of HFA) 90 00:00: every 6 [place] mcg/actuati 00 (six) Medical on inhaler hours as Branc h needed for Wheezing or Shortness of Breath. triamcinolo 2020-09 Yes [id number] Apply to [facility] ne 0.025 % 1-09 area(s) 3 ity of ointment 00:00: (three) [place] 00 times Medical daily. For Branch itching cyanocobala 2020-09 Yes [id number] 1000ug 1 mL by [facility] min 1,000 1-09 Intramuscu ity of mcg/mL 00:00: lar route [place] injection 00 every 2 Medical (two) Branch weeks. levothyroxi 2020-09 Yes [id number] 50ug Take 1 [facility] ne 50 mcg 1-09 tablet by ity o f tablet 00:00: mouth [place] 00 every Medical morning. Branch fluticasone 2020-09 Yes [id number] 2{puff} Inhale 2 [facility] propionate 1-09 Puffs ity of (FLOVENT 00:00: every 12 [place] HFA) 110 00 (twelve) Medical mcg/actuati hours. Branch on inhaler Rinse mouth after each use. levalbutero 2020-09 Yes [id number] .63mg Inhale [facility] l 0.63 mg/3 1-09 0.63 mg 3 ity of mL 00:00: (three) [place] nebulizer 00 times Medical solution daily as Branch needed for Wheezing or Shortness of Breath. clotrimazol 2020-09 Yes [id number] Apply to [facility] e-betametha -09 area(s) 2 ity of sone cream 00:00: (two) [place] 00 times Medical daily. Branch cyclobenzap 2020-09 Yes [id number] TAKE 1 [facility] rine 5 mg -09 TABLET BY ity o f tablet 00:00: MOUTH [place] 00 EVERY 8 Medical HOURS Branch NEEDED econazole 2020-09 Yes [id number] Apply to [facility] nitrate 1 % -09 area(s) 2 ity of cream 00:00: (two) [place] 00 times Medical daily. Branch albuterol 2020-09 Yes [id number] 2{puff} Inhale 2 [facility] (PROAIR 1-09 Puffs ity of HFA) 90 00:00: every 6 [place] mcg/actuati 00 (six) Medical on inhaler hours as Branc h needed for Wheezing or Shortness of Breath. triamcinolo 2020-09 Yes [id number] Apply to [facility] ne 0.025 % 1-09 area(s) 3 ity of ointment 00:00: (three) [place] 00 times Medical daily. For Branch itching cyanocobala 2020-09 Yes [id number] 1000ug 1 mL by [facility] min 1,000 1-09 Intramuscu ity of mcg/mL 00:00: lar route [place] injection 00 every 2 Medical (two) Branch weeks. levothyroxi 2020-09 Yes [id number] 50ug Take 1 [facility] ne 50 mcg 1-09 tablet by ity o f tablet 00:00: mouth [place] 00 every Medical morning. Branch fluticasone 2020-09 Yes [id number] 2{puff} Inhale 2 [facility] propionate 1-09 Puffs ity of (FLOVENT 00:00: every 12 [place] HFA) 110 00 (twelve) Medical mcg/actuati hours. Branch on inhaler Rinse mouth after each use. levalbutero 2020-09 Yes [id number] .63mg Inhale [facility] l 0.63 mg/3 1-09 0.63 mg 3 ity of mL 00:00: (three) [place] nebulizer 00 times Medical solution daily as Branch needed for Wheezing or Shortness of Breath. clotrimazol 2020-09 Yes [id number] Apply to [facility] e-betametha -09 area(s) 2 ity of sone cream 00:00: (two) [place] 00 times Medical daily. Branch cyclobenzap 2020-09 Yes [id number] TAKE 1 [facility] rine 5 mg 1-09 TABLET BY ity o f tablet 00:00: MOUTH [place] 00 EVERY 8 Medical HOURS Branch NEEDED econazole 2020-09 Yes [id number] Apply to [facility] nitrate 1 % -09 area(s) 2 ity of cream 00:00: (two) [place] 00 times Medical daily. Branch albuterol 2020-09 Yes [id number] 2{puff} Inhale 2 [facility] (PROAIR 1-09 Puffs ity of HFA) 90 00:00: every 6 [place] mcg/actuati 00 (six) Medical on inhaler hours as Branc h needed for Wheezing or Shortness of Breath. triamcinolo 2020-09 Yes [id number] Apply to [facility] ne 0.025 % 1-09 area(s) 3 ity of ointment 00:00: (three) [place] 00 times Medical daily. For Branch itching cyanocobala 2020-09 Yes [id number] 1000ug 1 mL by [facility] min 1,000 1-09 Intramuscu ity of mcg/mL 00:00: lar route [place] injection 00 every 2 Medical (two) Branch weeks. levothyroxi 2020-09 Yes [id number] 50ug Take 1 [facility] ne 50 mcg 1-09 tablet by ity o f tablet 00:00: mouth [place] 00 every Medical morning. Branch fluticasone 2020-09 Yes [id number] 2{puff} Inhale 2 [facility] propionate 1-09 Puffs ity of (FLOVENT 00:00: every 12 [place] HFA) 110 00 (twelve) Medical mcg/actuati hours. Branch on inhaler Rinse mouth after each use. levalbutero 2020-09 Yes [id number] .63mg Inhale [facility] l 0.63 mg/3 1-09 0.63 mg 3 ity of mL 00:00: (three) [place] nebulizer 00 times Medical solution daily as Branch needed for Wheezing or Shortness of Breath. clotrimazol 2020-09 Yes [id number] Apply to [facility] e-betametha 1-09 area(s) 2 ity of sone cream 00:00: (two) [place] 00 times Medical daily. Branch cyclobenzap 2020-09 Yes [id number] TAKE 1 [facility] rine 5 mg 1-09 TABLET BY ity o f tablet 00:00: MOUTH [place] 00 EVERY 8 Medical HOURS Branch NEEDED econazole 2020-09 Yes [id number] Apply to [facility] nitrate 1 % -09 area(s) 2 ity of cream 00:00: (two) [place] 00 times Medical daily. Branch albuterol 2020-09 Yes [id number] 2{puff} Inhale 2 [facility] (PROAIR 1-09 Puffs ity of HFA) 90 00:00: every 6 [place] mcg/actuati 00 (six) Medical on inhaler hours as Branc h needed for Wheezing or Shortness of Breath. triamcinolo 2020-09 Yes [id number] Apply to [facility] ne 0.025 % 1-09 area(s) 3 ity of ointment 00:00: (three) [place] 00 times Medical daily. For Branch itching cyanocobala 2020-09 Yes [id number] 1000ug 1 mL by [facility] min 1,000 1-09 Intramuscu ity of mcg/mL 00:00: lar route [place] injection 00 every 2 Medical (two) Branch weeks. levothyroxi 2020-09 Yes [id number] 50ug Take 1 [facility] ne 50 mcg 1-09 tablet by ity o f tablet 00:00: mouth [place] 00 every Medical morning. Branch fluticasone 2020-09 Yes [id number] 2{puff} Inhale 2 [facility] propionate 1-09 Puffs ity of (FLOVENT 00:00: every 12 [place] HFA) 110 00 (twelve) Medical mcg/actuati hours. Branch on inhaler Rinse mouth after each use. levalbutero 2020-09 Yes [id number] .63mg Inhale [facility] l 0.63 mg/3 1-09 0.63 mg 3 ity of mL 00:00: (three) [place] nebulizer 00 times Medical solution daily as Branch needed for Wheezing or Shortness of Breath. clotrimazol 2020-09 Yes [id number] Apply to [facility] e-betametha -09 area(s) 2 ity of sone cream 00:00: (two) [place] 00 times Medical daily. Branch cyclobenzap 2020-09 Yes [id number] TAKE 1 [facility] rine 5 mg -09 TABLET BY ity o f tablet 00:00: MOUTH [place] 00 EVERY 8 Medical HOURS Branch NEEDED econazole 2020-09 Yes [id number] Apply to [facility] nitrate 1 % -09 area(s) 2 ity of cream 00:00: (two) [place] 00 times Medical daily. Branch albuterol 2020-09 Yes [id number] 2{puff} Inhale 2 [facility] (PROAIR 1-09 Puffs ity of HFA) 90 00:00: every 6 [place] mcg/actuati 00 (six) Medical on inhaler hours as Branc h needed for Wheezing or Shortness of Breath. triamcinolo 2020-09 Yes [id number] Apply to [facility] ne 0.025 % 1-09 area(s) 3 ity of ointment 00:00: (three) [place] 00 times Medical daily. For Branch itching cyanocobala 2020-09 Yes [id number] 1000ug 1 mL by [facility] min 1,000 1-09 Intramuscu ity of mcg/mL 00:00: lar route [place] injection 00 every 2 Medical (two) Branch weeks. levothyroxi 2020-09 Yes [id number] 50ug Take 1 [facility] ne 50 mcg 1-09 tablet by ity o f tablet 00:00: mouth [place] 00 every Medical morning. Branch fluticasone 2020-09 Yes [id number] 2{puff} Inhale 2 [facility] propionate 1-09 Puffs ity of (FLOVENT 00:00: every 12 [place] HFA) 110 00 (twelve) Medical mcg/actuati hours. Branch on inhaler Rinse mouth after each use. levalbutero 2020-09 Yes [id number] .63mg Inhale [facility] l 0.63 mg/3 1-09 0.63 mg 3 ity of mL 00:00: (three) [place] nebulizer 00 times Medical solution daily as Branch needed for Wheezing or Shortness of Breath. clotrimazol 2020-09 Yes [id number] Apply to [facility] e-betametha -09 area(s) 2 ity of sone cream 00:00: (two) [place] 00 times Medical daily. Branch cyclobenzap 2020-09 Yes [id number] TAKE 1 [facility] rine 5 mg 1-09 TABLET BY ity o f tablet 00:00: MOUTH [place] 00 EVERY 8 Medical HOURS Branch NEEDED econazole 2020-09 Yes [id number] Apply to [facility] nitrate 1 % -09 area(s) 2 ity of cream 00:00: (two) [place] 00 times Medical daily. Branch albuterol 2020-09 Yes [id number] 2{puff} Inhale 2 [facility] (PROAIR 1-09 Puffs ity of HFA) 90 00:00: every 6 [place] mcg/actuati 00 (six) Medical on inhaler hours as Branc h needed for Wheezing or Shortness of Breath. triamcinolo 2020-09 Yes [id number] Apply to [facility] ne 0.025 % 1-09 area(s) 3 ity of ointment 00:00: (three) [place] 00 times Medical daily. For Branch itching cyanocobala 2020-09 Yes [id number] 1000ug 1 mL by [facility] min 1,000 1-09 Intramuscu ity of mcg/mL 00:00: lar route [place] injection 00 every 2 Medical (two) Branch weeks. levothyroxi 2020-09 Yes [id number] 50ug Take 1 [facility] ne 50 mcg 1-09 tablet by ity o f tablet 00:00: mouth [place] 00 every Medical morning. Branch fluticasone 2020-09 Yes [id number] 2{puff} Inhale 2 [facility] propionate 1-09 Puffs ity of (FLOVENT 00:00: every 12 [place] HFA) 110 00 (twelve) Medical mcg/actuati hours. Branch on inhaler Rinse mouth after each use. levalbutero 2020-09 Yes [id number] .63mg Inhale [facility] l 0.63 mg/3 1-09 0.63 mg 3 ity of mL 00:00: (three) [place] nebulizer 00 times Medical solution daily as Branch needed for Wheezing or Shortness of Breath. clotrimazol 2020-09 Yes [id number] Apply to [facility] e-betametha 1-09 area(s) 2 ity of sone cream 00:00: (two) [place] 00 times Medical daily. Branch cyclobenzap 2020-09 Yes [id number] TAKE 1 [facility] rine 5 mg -09 TABLET BY ity o f tablet 00:00: MOUTH [place] 00 EVERY 8 Medical HOURS Branch NEEDED econazole 2020-09 Yes [id number] Apply to [facility] nitrate 1 % -09 area(s) 2 ity of cream 00:00: (two) [place] 00 times Medical daily. Branch albuterol 2020-09 Yes [id number] 2{puff} Inhale 2 [facility] (PROAIR 1-09 Puffs ity of HFA) 90 00:00: every 6 [place] mcg/actuati 00 (six) Medical on inhaler hours as Branc h needed for Wheezing or Shortness of Breath. triamcinolo 2020-09 Yes [id number] Apply to [facility] ne 0.025 % 1-09 area(s) 3 ity of ointment 00:00: (three) [place] 00 times Medical daily. For Branch itching cyanocobala 2020-09 Yes [id number] 1000ug 1 mL by [facility] min 1,000 1-09 Intramuscu ity of mcg/mL 00:00: lar route [place] injection 00 every 2 Medical (two) Branch weeks. levothyroxi 2020-09 Yes [id number] 50ug Take 1 [facility] ne 50 mcg 1-09 tablet by ity o f tablet 00:00: mouth [place] 00 every Medical morning. Branch fluticasone 2020-09 Yes [id number] 2{puff} Inhale 2 [facility] propionate 1-09 Puffs ity of (FLOVENT 00:00: every 12 [place] HFA) 110 00 (twelve) Medical mcg/actuati hours. Branch on inhaler Rinse mouth after each use. levalbutero 2020-09 Yes [id number] .63mg Inhale [facility] l 0.63 mg/3 1-09 0.63 mg 3 ity of mL 00:00: (three) [place] nebulizer 00 times Medical solution daily as Branch needed for Wheezing or Shortness of Breath. clotrimazol 2020-09 Yes [id number] Apply to [facility] e-betametha -09 area(s) 2 ity of sone cream 00:00: (two) [place] 00 times Medical daily. Branch cyclobenzap 2020-09 Yes [id number] TAKE 1 [facility] rine 5 mg -09 TABLET BY ity o f tablet 00:00: MOUTH [place] 00 EVERY 8 Medical HOURS Branch NEEDED econazole 2020-09 Yes [id number] Apply to [facility] nitrate 1 % 10-04 area(s) 2 ity of cream 00:00: (two) [place] 00 times Medical daily. Branch albuterol 2020-09 Yes [id number] 2{puff} Inhale 2 [facility] (PROAIR 1-09 Puffs ity of HFA) 90 00:00: every 6 [place] mcg/actuati 00 (six) Medical on inhaler hours as Branc h needed for Wheezing or Shortness of Breath. triamcinolo 2020-09 Yes [id number] Apply to [facility] ne 0.025 % 10-04 area(s) 3 ity of ointment 00:00: (three) [place] 00 times Medical daily. For Branch itching cyanocobala 2020-09 Yes [id number] 1000ug 1 mL by [facility] min 1,000 1-09 Intramuscu ity of mcg/mL 00:00: lar route [place] injection 00 every 2 Medical (two) Branch weeks. levothyroxi 2020-09 Yes [id number] 50ug Take 1 [facility] ne 50 mcg 1-09 tablet by ity o f tablet 00:00: mouth [place] 00 every Medical morning. Branch fluticasone 2020-09 Yes [id number] 2{puff} Inhale 2 [facility] propionate 1-09 Puffs ity of (FLOVENT 00:00: every 12 [place] HFA) 110 00 (twelve) Medical mcg/actuati hours. Branch on inhaler Rinse mouth after each use. levalbutero 2020-09 Yes [id number] .63mg Inhale [facility] l 0.63 mg/3 1-09 0.63 mg 3 ity of mL 00:00: (three) [place] nebulizer 00 times Medical solution daily as Branch needed for Wheezing or Shortness of Breath. clotrimazol 2020-09 Yes [id number] Apply to [facility] e-betametha 09 area(s) 2 ity of sone cream 00:00: (two) [place] 00 times Medical daily. Branch cyclobenzap 2020-09 Yes [id number] TAKE 1 [facility] rine 5 mg 09 TABLET BY ity o f tablet 00:00: MOUTH [place] 00 EVERY 8 Medical HOURS Branch NEEDED econazole 2020-09 Yes [id number] Apply to [facility] nitrate 1 % 10-04 area(s) 2 ity of cream 00:00: (two) [place] 00 times Medical daily. Branch albuterol 2020-09 Yes [id number] 2{puff} Inhale 2 [facility] (PROAIR 1-09 Puffs ity of HFA) 90 00:00: every 6 [place] mcg/actuati 00 (six) Medical on inhaler hours as Branc h needed for Wheezing or Shortness of Breath. triamcinolo 2020-09 Yes [id number] Apply to [facility] ne 0.025 % 10-04 area(s) 3 ity of ointment 00:00: (three) [place] 00 times Medical daily. For Branch itching cyanocobala 2020-09 Yes [id number] 1000ug 1 mL by [facility] min 1,000 -09 Intramuscu ity of mcg/mL 00:00: lar route [place] injection 00 every 2 Medical (two) Branch weeks. levothyroxi 2020-09 Yes [id number] 50ug Take 1 [facility] ne 50 mcg -09 tablet by ity o f tablet 00:00: mouth [place] 00 every Medical morning. Branch fluticasone 2020-09 Yes [id number] 2{puff} Inhale 2 [facility] propionate 1-09 Puffs ity of (FLOVENT 00:00: every 12 [place] HFA) 110 00 (twelve) Medical mcg/actuati hours. Branch on inhaler Rinse mouth after each use. levalbutero 2020-09 Yes [id number] .63mg Inhale [facility] l 0.63 mg/3 1-09 0.63 mg 3 ity of mL 00:00: (three) [place] nebulizer 00 times Medical solution daily as Branch needed for Wheezing or Shortness of Breath. clotrimazol 2020-09 Yes [id number] Apply to [facility] e-betametha 09 area(s) 2 ity of sone cream 00:00: (two) [place] 00 times Medical daily. Branch cyclobenzap 2020-09 Yes [id number] TAKE 1 [facility] rine 5 mg 10-04 TABLET BY ity o f tablet 00:00: MOUTH [place] 00 EVERY 8 Medical HOURS Branch NEEDED econazole 2020-09 Yes [id number] Apply to [facility] nitrate 1 % 10-04 area(s) 2 ity of cream 00:00: (two) [place] 00 times Medical daily. Branch albuterol 2020-09 Yes [id number] 2{puff} Inhale 2 [facility] (PROAIR 1-09 Puffs ity of HFA) 90 00:00: every 6 [place] mcg/actuati 00 (six) Medical on inhaler hours as Branc h needed for Wheezing or Shortness of Breath. triamcinolo 2020-09 Yes [id number] Apply to [facility] ne 0.025 % 10-04 area(s) 3 ity of ointment 00:00: (three) [place] 00 times Medical daily. For Branch itching cyanocobala 2020-09 Yes [id number] 1000ug 1 mL by [facility] min 1,000 -09 Intramuscu ity of mcg/mL 00:00: lar route [place] injection 00 every 2 Medical (two) Branch weeks. levothyroxi 2020-09 Yes [id number] 50ug Take 1 [facility] ne 50 mcg -09 tablet by ity o f tablet 00:00: mouth [place] 00 every Medical morning. Branch fluticasone 2020-09 Yes [id number] 2{puff} Inhale 2 [facility] propionate 1-09 Puffs ity of (FLOVENT 00:00: every 12 [place] HFA) 110 00 (twelve) Medical mcg/actuati hours. Branch on inhaler Rinse mouth after each use. levalbutero 2020-09 Yes [id number] .63mg Inhale [facility] l 0.63 mg/3 1-09 0.63 mg 3 ity of mL 00:00: (three) [place] nebulizer 00 times Medical solution daily as Branch needed for Wheezing or Shortness of Breath. clotrimazol 2020-09 Yes [id number] Apply to [facility] e-betametha -09 area(s) 2 it[facility] of sone cream 00:00: (two) [place] 00 times Medical daily. Branch cyclobenzap 2020-09 Yes [id number] TAKE 1 [facility] rine 5 mg 1-09 TABLET BY it[facility] o f tablet 00:00: MOUTH [place] 00 EVERY 8 Medical HOURS Branch NEEDED econazole 2020-09 Yes [id number] Apply to [facility] nitrate 1 % -09 area(s) 2 ity of cream 00:00: (two) [place] 00 times Medical daily. Branch albuterol 2020-09 Yes [id number] 2{puff} Inhale 2 [facility] (PROAIR 1-09 Puffs ity of HFA) 90 00:00: every 6 [place] mcg/actuati 00 (six) Medical on inhaler hours as Branc h needed for Wheezing or Shortness of Breath. triamcinolo 2020-09 Yes [id number] Apply to [facility] ne 0.025 % 09 area(s) 3 ity of ointment 00:00: (three) [place] 00 times Medical daily. For Branch itching cyanocobala 2020-09 Yes [id number] 1000ug 1 mL by [facility] min 1,000 1-09 Intramuscu ity of mcg/mL 00:00: lar route [place] injection 00 every 2 Medical (two) Branch weeks. levothyroxi 2020-09 Yes [id number] 50ug Take 1 [facility] ne 50 mcg 1-09 tablet by ity o f tablet 00:00: mouth [place] 00 every Medical morning. Branch fluticasone 2020-09 Yes [id number] 2{puff} Inhale 2 [facility] propionate 1-09 Puffs ity of (FLOVENT 00:00: every 12 [place] HFA) 110 00 (twelve) Medical mcg/actuati hours. Branch on inhaler Rinse mouth after each use. levalbutero 2020-09 Yes [id number] .63mg Inhale [facility] l 0.63 mg/3 1-09 0.63 mg 3 ity of mL 00:00: (three) [place] nebulizer 00 times Medical solution daily as Branch needed for Wheezing or Shortness of Breath. clotrimazol 2020-09 Yes [id number] Apply to [facility] e-betametha 09 area(s) 2 ity of sone cream 00:00: (two) [place] 00 times Medical daily. Branch cyclobenzap 2020-09 Yes [id number] TAKE 1 [facility] rine 5 mg 09 TABLET BY ity o f tablet 00:00: MOUTH [place] 00 EVERY 8 Medical HOURS Branch NEEDED econazole 2020-09 Yes [id number] Apply to [facility] nitrate 1 % 10-04 area(s) 2 ity of cream 00:00: (two) [place] 00 times Medical daily. Branch albuterol 2020-09 Yes [id number] 2{puff} Inhale 2 [facility] (PROAIR 1-09 Puffs ity of HFA) 90 00:00: every 6 [place] mcg/actuati 00 (six) Medical on inhaler hours as Branc h needed for Wheezing or Shortness of Breath. triamcinolo 2020-09 Yes [id number] Apply to [facility] ne 0.025 % 10-04 area(s) 3 ity of ointment 00:00: (three) [place] 00 times Medical daily. For Branch itching cyanocobala 2020-09 Yes [id number] 1000ug 1 mL by [facility] min 1,000 -09 Intramuscu ity of mcg/mL 00:00: lar route [place] injection 00 every 2 Medical (two) Branch weeks. levothyroxi 2020-09 Yes [id number] 50ug Take 1 [facility] ne 50 mcg 10-04 tablet by ity o f tablet 00:00: mouth [place] 00 every Medical morning. Branch fluticasone 2020-09 Yes [id number] 2{puff} Inhale 2 [facility] propionate 1-09 Puffs ity of (FLOVENT 00:00: every 12 [place] HFA) 110 00 (twelve) Medical mcg/actuati hours. Branch on inhaler Rinse mouth after each use. levalbutero 2020-09 Yes [id number] .63mg Inhale [facility] l 0.63 mg/3 1-09 0.63 mg 3 ity of mL 00:00: (three) [place] nebulizer 00 times Medical solution daily as Branch needed for Wheezing or Shortness of Breath. clotrimazol 2020-09 Yes [id number] Apply to [facility] e-betametha -09 area(s) 2 ity of sone cream 00:00: (two) [place] 00 times Medical daily. Branch cyclobenzap 2020-09 Yes [id number] TAKE 1 [facility] rine 5 mg -09 TABLET BY ity o f tablet 00:00: MOUTH [place] 00 EVERY 8 Medical HOURS Branch NEEDED econazole 2020-09 Yes [id number] Apply to [facility] nitrate 1 % -09 area(s) 2 ity of cream 00:00: (two) [place] 00 times Medical daily. Branch albuterol 2020-09 Yes [id number] 2{puff} Inhale 2 [facility] (PROAIR 1-09 Puffs ity of HFA) 90 00:00: every 6 [place] mcg/actuati 00 (six) Medical on inhaler hours as Branc h needed for Wheezing or Shortness of Breath. triamcinolo 2020-09 Yes [id number] Apply to [facility] ne 0.025 % 09 area(s) 3 ity of ointment 00:00: (three) [place] 00 times Medical daily. For Branch itching cyanocobala 2020-09 Yes [id number] 1000ug 1 mL by [facility] min 1,000 1-09 Intramuscu ity of mcg/mL 00:00: lar route [place] injection 00 every 2 Medical (two) Branch weeks. levothyroxi 2020-09 Yes [id number] 50ug Take 1 [facility] ne 50 mcg 09 tablet by ity o f tablet 00:00: mouth [place] 00 every Medical morning. Branch fluticasone 2020-09 Yes [id number] 2{puff} Inhale 2 [facility] propionate 1-09 Puffs ity of (FLOVENT 00:00: every 12 [place] HFA) 110 00 (twelve) Medical mcg/actuati hours. Branch on inhaler Rinse mouth after each use. levalbutero 2020-09 Yes [id number] .63mg Inhale [facility] l 0.63 mg/3 1-09 0.63 mg 3 ity of mL 00:00: (three) [place] nebulizer 00 times Medical solution daily as Branch needed for Wheezing or Shortness of Breath. clotrimazol 2020-09 Yes [id number] Apply to [facility] e-betametha -09 area(s) 2 ity of sone cream 00:00: (two) [place] 00 times Medical daily. Branch cyclobenzap 2020-09 Yes [id number] TAKE 1 [facility] rine 5 mg 1-09 TABLET BY ity o f tablet 00:00: MOUTH [place] 00 EVERY 8 Medical HOURS Branch NEEDED econazole 2020-09 Yes [id number] Apply to [facility] nitrate 1 % -09 area(s) 2 ity of cream 00:00: (two) [place] 00 times Medical daily. Branch albuterol 2020-09 Yes [id number] 2{puff} Inhale 2 [facility] (PROAIR 1-09 Puffs ity of HFA) 90 00:00: every 6 [place] mcg/actuati 00 (six) Medical on inhaler hours as Branc h needed for Wheezing or Shortness of Breath. triamcinolo 2020-09 Yes [id number] Apply to [facility] ne 0.025 % 10-04 area(s) 3 ity of ointment 00:00: (three) [place] 00 times Medical daily. For Branch itching cyanocobala 2020-09 Yes [id number] 1000ug 1 mL by [facility] min 1,000 1-09 Intramuscu ity of mcg/mL 00:00: lar route [place] injection 00 every 2 Medical (two) Branch weeks. levothyroxi 2020-09 Yes [id number] 50ug Take 1 [facility] ne 50 mcg -09 tablet by ity o f tablet 00:00: mouth [place] 00 every Medical morning. Branch fluticasone 2020-09 Yes [id number] 2{puff} Inhale 2 [facility] propionate 1-09 Puffs ity of (FLOVENT 00:00: every 12 [place] HFA) 110 00 (twelve) Medical mcg/actuati hours. Branch on inhaler Rinse mouth after each use. levalbutero 2020-09 Yes [id number] .63mg Inhale [facility] l 0.63 mg/3 1-09 0.63 mg 3 ity of mL 00:00: (three) [place] nebulizer 00 times Medical solution daily as Branch needed for Wheezing or Shortness of Breath. clotrimazol 2020-09 Yes [id number] Apply to [facility] e-betametha -09 area(s) 2 ity of sone cream 00:00: (two) [place] 00 times Medical daily. Branch cyclobenzap 2020-09 Yes [id number] TAKE 1 [facility] rine 5 mg -09 TABLET BY ity o f tablet 00:00: MOUTH [place] 00 EVERY 8 Medical HOURS Branch NEEDED econazole 2020-09 Yes [id number] Apply to [facility] nitrate 1 % 09 area(s) 2 ity of cream 00:00: (two) [place] 00 times Medical daily. Branch albuterol 2020-09 Yes [id number] 2{puff} Inhale 2 [facility] (PROAIR 1-09 Puffs ity of HFA) 90 00:00: every 6 [place] mcg/actuati 00 (six) Medical on inhaler hours as Branc h needed for Wheezing or Shortness of Breath. triamcinolo 2020-09 Yes [id number] Apply to [facility] ne 0.025 % 10-04 area(s) 3 ity of ointment 00:00: (three) [place] 00 times Medical daily. For Branch itching cyanocobala 2020-09 Yes [id number] 1000ug 1 mL by [facility] min 1,000 09 Intramuscu ity of mcg/mL 00:00: lar route [place] injection 00 every 2 Medical (two) Branch weeks. levothyroxi 2020-09 Yes [id number] 50ug Take 1 [facility] ne 50 mcg -09 tablet by ity o f tablet 00:00: mouth [place] 00 every Medical morning. Branch fluticasone 2020-09 Yes [id number] 2{puff} Inhale 2 [facility] propionate 1-09 Puffs ity of (FLOVENT 00:00: every 12 [place] HFA) 110 00 (twelve) Medical mcg/actuati hours. Branch on inhaler Rinse mouth after each use. levalbutero 2020-09 Yes [id number] .63mg Inhale [facility] l 0.63 mg/3 1-09 0.63 mg 3 ity of mL 00:00: (three) [place] nebulizer 00 times Medical solution daily as Branch needed for Wheezing or Shortness of Breath. clotrimazol 2020-09 Yes [id number] Apply to [facility] e-betametha -09 area(s) 2 ity of sone cream 00:00: (two) [place] 00 times Medical daily. Branch cyclobenzap 2020-09 Yes [id number] TAKE 1 [facility] rine 5 mg 1-09 TABLET BY ity o f tablet 00:00: MOUTH [place] 00 EVERY 8 Medical HOURS Branch NEEDED econazole 2020-09 Yes [id number] Apply to [facility] nitrate 1 % -09 area(s) 2 ity of cream 00:00: (two) [place] 00 times Medical daily. Branch albuterol 2020-09 Yes [id number] 2{puff} Inhale 2 [facility] (PROAIR 1-09 Puffs ity of HFA) 90 00:00: every 6 [place] mcg/actuati 00 (six) Medical on inhaler hours as Branc h needed for Wheezing or Shortness of Breath. triamcinolo 2020-09 Yes [id number] Apply to [facility] ne 0.025 % 10-04 area(s) 3 ity of ointment 00:00: (three) [place] 00 times Medical daily. For Branch itching cyanocobala 2020-09 Yes [id number] 1000ug 1 mL by [facility] min 1,000 -09 Intramuscu ity of mcg/mL 00:00: lar route [place] injection 00 every 2 Medical (two) Branch weeks. levothyroxi 2020-09 Yes [id number] 50ug Take 1 [facility] ne 50 mcg -09 tablet by ity o f tablet 00:00: mouth [place] 00 every Medical morning. Branch fluticasone 2020-09 Yes [id number] 2{puff} Inhale 2 [facility] propionate 1-09 Puffs ity of (FLOVENT 00:00: every 12 [place] HFA) 110 00 (twelve) Medical mcg/actuati hours. Branch on inhaler Rinse mouth after each use. levalbutero 2020-09 Yes [id number] .63mg Inhale [facility] l 0.63 mg/3 1-09 0.63 mg 3 ity of mL 00:00: (three) [place] nebulizer 00 times Medical solution daily as Branch needed for Wheezing or Shortness of Breath. clotrimazol 2020-09 Yes [id number] Apply to [facility] e-betametha -09 area(s) 2 ity of sone cream 00:00: (two) [place] 00 times Medical daily. Branch cyclobenzap 2020-09 Yes [id number] TAKE 1 [facility] rine 5 mg 1-09 TABLET BY ity o f tablet 00:00: MOUTH [place] 00 EVERY 8 Medical HOURS Branch NEEDED econazole 2020-09 Yes [id number] Apply to [facility] nitrate 1 % 1-09 area(s) 2 ity of cream 00:00: (two) [place] 00 times Medical daily. Branch albuterol 2020-09 Yes [id number] 2{puff} Inhale 2 [facility] (PROAIR 1-09 Puffs ity of HFA) 90 00:00: every 6 [place] mcg/actuati 00 (six) Medical on inhaler hours as Branc h needed for Wheezing or Shortness of Breath. triamcinolo 2020-09 Yes [id number] Apply to [facility] ne 0.025 % -09 area(s) 3 ity of ointment 00:00: (three) [place] 00 times Medical daily. For Branch itching cyanocobala 2020-09 Yes [id number] 1000ug 1 mL by [facility] min 1,000 1-09 Intramuscu ity of mcg/mL 00:00: lar route [place] injection 00 every 2 Medical (two) Branch weeks. levothyroxi 2020-09 Yes [id number] 50ug Take 1 [facility] ne 50 mcg 1-09 tablet by ity o f tablet 00:00: mouth [place] 00 every Medical morning. Branch fluticasone 2020-09 Yes [id number] 2{puff} Inhale 2 [facility] propionate 1-09 Puffs ity of (FLOVENT 00:00: every 12 [place] HFA) 110 00 (twelve) Medical mcg/actuati hours. Branch on inhaler Rinse mouth after each use. levalbutero 2020-09 Yes [id number] .63mg Inhale [facility] l 0.63 mg/3 1-09 0.63 mg 3 ity of mL 00:00: (three) [place] nebulizer 00 times Medical solution daily as Branch needed for Wheezing or Shortness of Breath. clotrimazol 2020-09 Yes [id number] Apply to [facility] e-betametha 1-09 area(s) 2 ity of sone cream 00:00: (two) [place] 00 times Medical daily. Branch cyclobenzap 2020-09 Yes [id number] TAKE 1 [facility] rine 5 mg 1-09 TABLET BY ity o f tablet 00:00: MOUTH [place] 00 EVERY 8 Medical HOURS Branch NEEDED econazole 2020-09 Yes [id number] Apply to [facility] nitrate 1 % -09 area(s) 2 ity of cream 00:00: (two) [place] 00 times Medical daily. Branch albuterol 2020-09 Yes [id number] 2{puff} Inhale 2 [facility] (PROAIR 1-09 Puffs ity of HFA) 90 00:00: every 6 [place] mcg/actuati 00 (six) Medical on inhaler hours as Branc h needed for Wheezing or Shortness of Breath. triamcinolo 2020-09 Yes [id number] Apply to [facility] ne 0.025 % - area(s) 3 ity of ointment 00:00: (three) [place] 00 times Medical daily. For Branch itching cyanocobala 2020-09 Yes [id number] 1000ug 1 mL by [facility] min 1,000 -09 Intramuscu ity of mcg/mL 00:00: lar route [place] injection 00 every 2 Medical (two) Branch weeks. levothyroxi 2020-09 Yes [id number] 50ug Take 1 [facility] ne 50 mcg -09 tablet by ity o f tablet 00:00: mouth [place] 00 every Medical morning. Branch fluticasone 2020-09 Yes [id number] 2{puff} Inhale 2 [facility] propionate 1-09 Puffs ity of (FLOVENT 00:00: every 12 [place] HFA) 110 00 (twelve) Medical mcg/actuati hours. Branch on inhaler Rinse mouth after each use. levalbutero 2020-09 Yes [id number] .63mg Inhale [facility] l 0.63 mg/3 -09 0.63 mg 3 ity of mL 00:00: (three) [place] nebulizer 00 times Medical solution daily as Branch needed for Wheezing or Shortness of Breath. clotrimazol 2020-09 Yes [id number] Apply to [facility] e-betametha -09 area(s) 2 ity of sone cream 00:00: (two) [place] 00 times Medical daily. Branch cyclobenzap 2020-09 Yes [id number] TAKE 1 [facility] rine 5 mg 1-09 TABLET BY ity o f tablet 00:00: MOUTH [place] 00 EVERY 8 Medical HOURS Branch NEEDED econazole 2020-09 Yes [id number] Apply to [facility] nitrate 1 % 1-09 area(s) 2 ity of cream 00:00: (two) [place] 00 times Medical daily. Branch albuterol 2020-09 Yes [id number] 2{puff} Inhale 2 [facility] (PROAIR 1-09 Puffs ity of HFA) 90 00:00: every 6 [place] mcg/actuati 00 (six) Medical on inhaler hours as Branc h needed for Wheezing or Shortness of Breath. triamcinolo 2020-09 Yes [id number] Apply to [facility] ne 0.025 % -09 area(s) 3 ity of ointment 00:00: (three) [place] 00 times Medical daily. For Branch itching cyanocobala 2020-09 Yes [id number] 1000ug 1 mL by [facility] min 1,000 1-09 Intramuscu ity of mcg/mL 00:00: lar route [place] injection 00 every 2 Medical (two) Branch weeks. levothyroxi 2020-09 Yes [id number] 50ug Take 1 [facility] ne 50 mcg -09 tablet by ity o f tablet 00:00: mouth [place] 00 every Medical morning. Branch fluticasone 2020-09 Yes [id number] 2{puff} Inhale 2 [facility] propionate 1-09 Puffs ity of (FLOVENT 00:00: every 12 [place] HFA) 110 00 (twelve) Medical mcg/actuati hours. Branch on inhaler Rinse mouth after each use. levalbutero 2020-09 Yes [id number] .63mg Inhale [facility] l 0.63 mg/3 1-09 0.63 mg 3 ity of mL 00:00: (three) [place] nebulizer 00 times Medical solution daily as Branch needed for Wheezing or Shortness of Breath. clotrimazol 2020-09 Yes [id number] Apply to [facility] e-betametha -09 area(s) 2 ity of sone cream 00:00: (two) [place] 00 times Medical daily. Branch cyclobenzap 2020-09 Yes [id number] TAKE 1 [facility] rine 5 mg 1-09 TABLET BY ity o f tablet 00:00: MOUTH [place] 00 EVERY 8 Medical HOURS Branch NEEDED econazole 2020-09 Yes [id number] Apply to [facility] nitrate 1 % -09 area(s) 2 ity of cream 00:00: (two) [place] 00 times Medical daily. Branch albuterol 2020-09 Yes [id number] 2{puff} Inhale 2 [facility] (PROAIR 1-09 Puffs ity of HFA) 90 00:00: every 6 [place] mcg/actuati 00 (six) Medical on inhaler hours as Branc h needed for Wheezing or Shortness of Breath. triamcinolo 2020-09 Yes [id number] Apply to [facility] ne 0.025 % 1-09 area(s) 3 ity of ointment 00:00: (three) [place] 00 times Medical daily. For Branch itching cyanocobala 2020-09 Yes [id number] 1000ug 1 mL by [facility] min 1,000 1-09 Intramuscu ity of mcg/mL 00:00: lar route [place] injection 00 every 2 Medical (two) Branch weeks. levothyroxi 2020-09 Yes [id number] 50ug Take 1 [facility] ne 50 mcg 1-09 tablet by ity o f tablet 00:00: mouth [place] 00 every Medical morning. Branch fluticasone 2020-09 Yes [id number] 2{puff} Inhale 2 [facility] propionate 1-09 Puffs ity of (FLOVENT 00:00: every 12 [place] HFA) 110 00 (twelve) Medical mcg/actuati hours. Branch on inhaler Rinse mouth after each use. levalbutero 2020-09 Yes [id number] .63mg Inhale [facility] l 0.63 mg/3 1-09 0.63 mg 3 ity of mL 00:00: (three) [place] nebulizer 00 times Medical solution daily as Branch needed for Wheezing or Shortness of Breath. clotrimazol 2020-09 Yes [id number] Apply to [facility] e-betametha 1-09 area(s) 2 ity of sone cream 00:00: (two) [place] 00 times Medical daily. Branch cyclobenzap 2020-09 Yes [id number] TAKE 1 [facility] rine 5 mg 1-09 TABLET BY ity o f tablet 00:00: MOUTH [place] 00 EVERY 8 Medical HOURS Branch NEEDED econazole 2020-09 Yes [id number] Apply to [facility] nitrate 1 % 1-09 area(s) 2 ity of cream 00:00: (two) [place] 00 times Medical daily. Branch albuterol 2020-09 Yes [id number] 2{puff} Inhale 2 [facility] (PROAIR 1-09 Puffs ity of HFA) 90 00:00: every 6 [place] mcg/actuati 00 (six) Medical on inhaler hours as Branc h needed for Wheezing or Shortness of Breath. triamcinolo 2020-09 Yes [id number] Apply to [facility] ne 0.025 % -09 area(s) 3 ity of ointment 00:00: (three) [place] 00 times Medical daily. For Branch itching cyanocobala 2020-09 Yes [id number] 1000ug 1 mL by [facility] min 1,000 -09 Intramuscu ity of mcg/mL 00:00: lar route [place] injection 00 every 2 Medical (two) Branch weeks. levothyroxi 2020-09 Yes [id number] 50ug Take 1 [facility] ne 50 mcg -09 tablet by ity o f tablet 00:00: mouth [place] 00 every Medical morning. Branch fluticasone 2020-09 Yes [id number] 2{puff} Inhale 2 [facility] propionate 1-09 Puffs ity of (FLOVENT 00:00: every 12 [place] HFA) 110 00 (twelve) Medical mcg/actuati hours. Branch on inhaler Rinse mouth after each use. levalbutero 2020-09 Yes [id number] .63mg Inhale [facility] l 0.63 mg/3 1-09 0.63 mg 3 ity of mL 00:00: (three) [place] nebulizer 00 times Medical solution daily as Branch needed for Wheezing or Shortness of Breath. clotrimazol 2020-09 Yes [id number] Apply to [facility] e-betametha 10-04 area(s) 2 ity of sone cream 00:00: (two) [place] 00 times Medical daily. Branch cyclobenzap 2020-09 Yes [id number] TAKE 1 [facility] rine 5 mg -09 TABLET BY ity o f tablet 00:00: MOUTH [place] 00 EVERY 8 Medical HOURS Branch NEEDED econazole 2020-09 Yes [id number] Apply to [facility] nitrate 1 % -09 area(s) 2 ity of cream 00:00: (two) [place] 00 times Medical daily. Branch albuterol 2020-09 Yes [id number] 2{puff} Inhale 2 [facility] (PROAIR 1-09 Puffs ity of HFA) 90 00:00: every 6 [place] mcg/actuati 00 (six) Medical on inhaler hours as Branc h needed for Wheezing or Shortness of Breath. triamcinolo 2020-09 Yes [id number] Apply to [facility] ne 0.025 % 1-09 area(s) 3 ity of ointment 00:00: (three) [place] 00 times Medical daily. For Branch itching cyanocobala 2020-09 Yes [id number] 1000ug 1 mL by [facility] min 1,000 -09 Intramuscu ity of mcg/mL 00:00: lar route [place] injection 00 every 2 Medical (two) Branch weeks. levothyroxi 2020-09 Yes [id number] 50ug Take 1 [facility] ne 50 mcg -09 tablet by ity o f tablet 00:00: mouth [place] 00 every Medical morning. Branch fluticasone 2020-09 Yes [id number] 2{puff} Inhale 2 [facility] propionate -09 Puffs ity of (FLOVENT 00:00: every 12 [place] HFA) 110 00 (twelve) Medical mcg/actuati hours. Branch on inhaler Rinse mouth after each use. levalbutero 2020-09 Yes [id number] .63mg Inhale [facility] l 0.63 mg/3 1-09 0.63 mg 3 ity of mL 00:00: (three) [place] nebulizer 00 times Medical solution daily as Branch needed for Wheezing or Shortness of Breath. clotrimazol 2020-09 Yes [id number] Apply to [facility] e-betametha 10-04 area(s) 2 ity of sone cream 00:00: (two) [place] 00 times Medical daily. Branch cyclobenzap 2020-09 Yes [id number] TAKE 1 [facility] rine 5 mg -09 TABLET BY ity o f tablet 00:00: MOUTH [place] 00 EVERY 8 Medical HOURS Branch NEEDED econazole 2020-09 Yes [id number] Apply to [facility] nitrate 1 % -09 area(s) 2 ity of cream 00:00: (two) [place] 00 times Medical daily. Branch albuterol 2020-09 Yes [id number] 2{puff} Inhale 2 [facility] (PROAIR 1-09 Puffs ity of HFA) 90 00:00: every 6 [place] mcg/actuati 00 (six) Medical on inhaler hours as Branc h needed for Wheezing or Shortness of Breath. triamcinolo 2020-09 Yes [id number] Apply to [facility] ne 0.025 % 1-09 area(s) 3 ity of ointment 00:00: (three) [place] 00 times Medical daily. For Branch itching cyanocobala 2020-09 Yes [id number] 1000ug 1 mL by [facility] min 1,000 -09 Intramuscu ity of mcg/mL 00:00: lar route [place] injection 00 every 2 Medical (two) Branch weeks. levothyroxi 2020-09 Yes [id number] 50ug Take 1 [facility] ne 50 mcg -09 tablet by ity o f tablet 00:00: mouth [place] 00 every Medical morning. Branch fluticasone 2020-09 Yes [id number] 2{puff} Inhale 2 [facility] propionate 1-09 Puffs ity of (FLOVENT 00:00: every 12 [place] HFA) 110 00 (twelve) Medical mcg/actuati hours. Branch on inhaler Rinse mouth after each use. levalbutero 2020-09 Yes [id number] .63mg Inhale [facility] l 0.63 mg/3 1-09 0.63 mg 3 ity of mL 00:00: (three) [place] nebulizer 00 times Medical solution daily as Branch needed for Wheezing or Shortness of Breath. clotrimazol 2020-09 Yes [id number] Apply to [facility] e-betametha 10-04 area(s) 2 ity of sone cream 00:00: (two) [place] 00 times Medical daily. Branch cyclobenzap 2020-09 Yes [id number] TAKE 1 [facility] rine 5 mg -09 TABLET BY ity o f tablet 00:00: MOUTH [place] 00 EVERY 8 Medical HOURS Branch NEEDED econazole 2020-09 Yes [id number] Apply to [facility] nitrate 1 % -09 area(s) 2 ity of cream 00:00: (two) [place] 00 times Medical daily. Branch albuterol 2020-09 Yes [id number] 2{puff} Inhale 2 [facility] (PROAIR 1-09 Puffs ity of HFA) 90 00:00: every 6 [place] mcg/actuati 00 (six) Medical on inhaler hours as Branc h needed for Wheezing or Shortness of Breath. triamcinolo 2020-09 Yes [id number] Apply to [facility] ne 0.025 % 10-04 area(s) 3 ity of ointment 00:00: (three) [place] 00 times Medical daily. For Branch itching cyanocobala 2020-09 Yes [id number] 1000ug 1 mL by [facility] min 1,000 -09 Intramuscu ity of mcg/mL 00:00: lar route [place] injection 00 every 2 Medical (two) Branch weeks. levothyroxi 2020-09 Yes [id number] 50ug Take 1 [facility] ne 50 mcg -09 tablet by ity o f tablet 00:00: mouth [place] 00 every Medical morning. Branch fluticasone 2020-09 Yes [id number] 2{puff} Inhale 2 [facility] propionate -09 Puffs ity of (FLOVENT 00:00: every 12 [place] HFA) 110 00 (twelve) Medical mcg/actuati hours. Branch on inhaler Rinse mouth after each use. levalbutero 2020-09 Yes [id number] .63mg Inhale [facility] l 0.63 mg/3 -09 0.63 mg 3 ity of mL 00:00: (three) [place] nebulizer 00 times Medical solution daily as Branch needed for Wheezing or Shortness of Breath. clotrimazol 2020-09 Yes [id number] Apply to [facility] e-betametha 10-04 area(s) 2 ity of sone cream 00:00: (two) [place] 00 times Medical daily. Branch cyclobenzap 2020-09 Yes [id number] TAKE 1 [facility] rine 5 mg -09 TABLET BY ity o f tablet 00:00: MOUTH [place] 00 EVERY 8 Medical HOURS Branch NEEDED econazole 2020-09 Yes [id number] Apply to [facility] nitrate 1 % 09 area(s) 2 ity of cream 00:00: (two) [place] 00 times Medical daily. Branch albuterol 2020-09 Yes [id number] 2{puff} Inhale 2 [facility] (PROAIR 1-09 Puffs ity of HFA) 90 00:00: every 6 [place] mcg/actuati 00 (six) Medical on inhaler hours as Branc h needed for Wheezing or Shortness of Breath. triamcinolo 2020-09 Yes [id number] Apply to [facility] ne 0.025 % -09 area(s) 3 ity of ointment 00:00: (three) [place] 00 times Medical daily. For Branch itching cyanocobala 2020-09 Yes [id number] 1000ug 1 mL by [facility] min 1,000 -09 Intramuscu ity of mcg/mL 00:00: lar route [place] injection 00 every 2 Medical (two) Branch weeks. levothyroxi 2020-09 Yes [id number] 50ug Take 1 [facility] ne 50 mcg 1-09 tablet by ity o f tablet 00:00: mouth [place] 00 every Medical morning. Branch fluticasone 2020-09 Yes [id number] 2{puff} Inhale 2 [facility] propionate 1-09 Puffs ity of (FLOVENT 00:00: every 12 [place] HFA) 110 00 (twelve) Medical mcg/actuati hours. Branch on inhaler Rinse mouth after each use. levalbutero 2020-09 Yes [id number] .63mg Inhale [facility] l 0.63 mg/3 -09 0.63 mg 3 ity of mL 00:00: (three) [place] nebulizer 00 times Medical solution daily as Branch needed for Wheezing or Shortness of Breath. clotrimazol 2020-09 Yes [id number] Apply to [facility] e-betametha 10-04 area(s) 2 ity of sone cream 00:00: (two) [place] 00 times Medical daily. Branch cyclobenzap 2020-09 Yes [id number] TAKE 1 [facility] rine 5 mg -09 TABLET BY ity o f tablet 00:00: MOUTH [place] 00 EVERY 8 Medical HOURS Branch NEEDED econazole 2020-09 Yes [id number] Apply to [facility] nitrate 1 % 09 area(s) 2 ity of cream 00:00: (two) [place] 00 times Medical daily. Branch albuterol 2020-09 Yes [id number] 2{puff} Inhale 2 [facility] (PROAIR 1-09 Puffs ity of HFA) 90 00:00: every 6 [place] mcg/actuati 00 (six) Medical on inhaler hours as Branc h needed for Wheezing or Shortness of Breath. triamcinolo 2020-09 Yes [id number] Apply to [facility] ne 0.025 % -09 area(s) 3 ity of ointment 00:00: (three) [place] 00 times Medical daily. For Branch itching cyanocobala 2020-09 Yes [id number] 1000ug 1 mL by [facility] min 1,000 1-09 Intramuscu ity of mcg/mL 00:00: lar route [place] injection 00 every 2 Medical (two) Branch weeks. fluticasone 2020-09 Yes [id number] 2{puff} Inhale 2 [facility] propionate 1-09 Puffs ity of (FLOVENT 00:00: every 12 [place] HFA) 110 00 (twelve) Medical mcg/actuati hours. Branch on inhaler Rinse mouth after each use. levalbutero 2020-09 Yes [id number] .63mg Inhale [facility] l 0.63 mg/3 1-09 0.63 mg 3 ity of mL 00:00: (three) [place] nebulizer 00 times Medical solution daily as Branch needed for Wheezing or Shortness of Breath. clotrimazol 2020-09 Yes [id number] Apply to [facility] e-betametha -09 area(s) 2 ity of sone cream 00:00: (two) [place] 00 times Medical daily. Branch cyclobenzap 2020-09 Yes [id number] TAKE 1 [facility] rine 5 mg -09 TABLET BY ity o f tablet 00:00: MOUTH [place] 00 EVERY 8 Medical HOURS Branch NEEDED econazole 2020-09 Yes [id number] Apply to [facility] nitrate 1 % -09 area(s) 2 ity of cream 00:00: (two) [place] 00 times Medical daily. Branch albuterol 2020-09 Yes [id number] 2{puff} Inhale 2 [facility] (PROAIR 1-09 Puffs ity of HFA) 90 00:00: every 6 [place] mcg/actuati 00 (six) Medical on inhaler hours as Branc h needed for Wheezing or Shortness of Breath. triamcinolo 2020-09 Yes [id number] Apply to [facility] ne 0.025 % 1-09 area(s) 3 ity of ointment 00:00: (three) [place] 00 times Medical daily. For Branch itching rosuvastati 2020-09 Yes [id number] 10mg Take 1 [facility] n 10 mg -09 tablet by ity of tablet 00:00: mouth at [place] 00 bedtime. Medical Branch cyanocobala 2020-09 Yes [id number] 1000ug 1 mL by [facility] min 1,000 1-09 Intramuscu ity of mcg/mL 00:00: lar route [place] injection 00 every 2 Medical (two) Branch weeks. levothyroxi 2020-09 Yes [id number] 50ug Take 1 [facility] ne 50 mcg 1-09 tablet by ity o f tablet 00:00: mouth [place] 00 every Medical morning. Branch fluticasone 2020-09 Yes [id number] 2{puff} Inhale 2 [facility] propionate 1-09 Puffs ity of (FLOVENT 00:00: every 12 [place] HFA) 110 00 (twelve) Medical mcg/actuati hours. Branch on inhaler Rinse mouth after each use. levalbutero 2020-09 Yes [id number] .63mg Inhale [facility] l 0.63 mg/3 1-09 0.63 mg 3 ity of mL 00:00: (three) [place] nebulizer 00 times Medical solution daily as Branch needed for Wheezing or Shortness of Breath. losartan 50 2020-09 Yes [id number] 50mg Take 1 [facility] mg tablet 1-09 tablet by ity o f 00:00: mouth 2 [place] 00 (two) Medical times Branch daily. clotrimazol 2020-09 Yes [id number] Apply to [facility] e-betametha 1-09 area(s) 2 ity of sone cream 00:00: (two) [place] 00 times Medical daily. Branch cyclobenzap 2020-09 Yes [id number] TAKE 1 [facility] rine 5 mg 1-09 TABLET BY ity o f tablet 00:00: MOUTH [place] 00 EVERY 8 Medical HOURS Branch NEEDED econazole 2020-09 Yes [id number] Apply to [facility] nitrate 1 % 1-09 area(s) 2 ity of cream 00:00: (two) [place] 00 times Medical daily. Branch albuterol 2020-09 Yes [id number] 2{puff} Inhale 2 [facility] (PROAIR 1-09 Puffs ity of HFA) 90 00:00: every 6 [place] mcg/actuati 00 (six) Medical on inhaler hours as Branc h needed for Wheezing or Shortness of Breath. triamcinolo 2020-09 Yes [id number] Apply to [facility] ne 0.025 % 1-09 area(s) 3 ity of ointment 00:00: (three) [place] 00 times Medical daily. For Branch itching diltiazem 2020-09 Yes [id number] 120mg Take 1 [facility] (CARTIA XT) -09 capsule by it y of 120 mg 24 00:00: mouth 2 [place] hr capsule 00 (two) Medical times Branch daily. rosuvastati 2020-09 Yes [id number] 10mg Take 1 [facility] n 10 mg - tablet by ity of tablet 00:00: mouth at [place] 00 bedtime. Medical Branch cyanocobala 2020-09 Yes [id number] 1000ug 1 mL by [facility] min 1,000 09 Intramuscu ity of mcg/mL 00:00: lar route [place] injection 00 every 2 Medical (two) Branch weeks. levothyroxi 2020-09 Yes [id number] 50ug Take 1 [facility] ne 50 mcg 10-04 tablet by ity o f tablet 00:00: mouth [place] 00 every Medical morning. Branch fluticasone 2020-09 Yes [id number] 2{puff} Inhale 2 [facility] propionate -09 Puffs ity of (FLOVENT 00:00: every 12 [place] HFA) 110 00 (twelve) Medical mcg/actuati hours. Branch on inhaler Rinse mouth after each use. levalbutero 2020-09 Yes [id number] .63mg Inhale [facility] l 0.63 mg/3 09 0.63 mg 3 ity of mL 00:00: (three) [place] nebulizer 00 times Medical solution daily as Branch needed for Wheezing or Shortness of Breath. losartan 50 2020-09 Yes [id number] 50mg Take 1 [facility] mg tablet 10-04 tablet by ity o f 00:00: mouth 2 [place] 00 (two) Medical times Branch daily. clotrimazol 2020-09 Yes [id number] Apply to [facility] e-betametha 10-04 area(s) 2 ity of sone cream 00:00: (two) [place] 00 times Medical daily. Branch cyclobenzap 2020-09 Yes [id number] TAKE 1 [facility] rine 5 mg - TABLET BY ity o f tablet 00:00: MOUTH [place] 00 EVERY 8 Medical HOURS Branch NEEDED econazole 2020-09 Yes [id number] Apply to [facility] nitrate 1 % 1-09 area(s) 2 ity of cream 00:00: (two) [place] 00 times Medical daily. Branch albuterol 2020-09 Yes [id number] 2{puff} Inhale 2 [facility] (PROAIR 1-09 Puffs ity of HFA) 90 00:00: every 6 [place] mcg/actuati 00 (six) Medical on inhaler hours as Branc h needed for Wheezing or Shortness of Breath. triamcinolo 2020-09 Yes [id number] Apply to [facility] ne 0.025 % -09 area(s) 3 ity of ointment 00:00: (three) [place] 00 times Medical daily. For Branch itching diltiazem 2020-09 Yes [id number] 120mg Take 1 [facility] (CARTIA XT) -09 capsule by it y of 120 mg 24 00:00: mouth 2 [place] hr capsule 00 (two) Medical times Branch daily. cyanocobala 2020-09 Yes [id number] 1000ug 1 mL by [facility] min 1,000 1-09 Intramuscu ity of mcg/mL 00:00: lar route [place] injection 00 every 2 Medical (two) Branch weeks. levothyroxi 2020-09 Yes [id number] 50ug Take 1 [facility] ne 50 mcg 1-09 tablet by ity o f tablet 00:00: mouth [place] 00 every Medical morning. Branch fluticasone 2020-09 Yes [id number] 2{puff} Inhale 2 [facility] propionate 1-09 Puffs ity of (FLOVENT 00:00: every 12 [place] HFA) 110 00 (twelve) Medical mcg/actuati hours. Branch on inhaler Rinse mouth after each use. levalbutero 2020-09 Yes [id number] .63mg Inhale [facility] l 0.63 mg/3 1-09 0.63 mg 3 ity of mL 00:00: (three) [place] nebulizer 00 times Medical solution daily as Branch needed for Wheezing or Shortness of Breath. losartan 50 2020-09 Yes [id number] 50mg Take 1 [facility] mg tablet 1-09 tablet by ity o f 00:00: mouth 2 [place] 00 (two) Medical times Branch daily. clotrimazol 2020-09 Yes [id number] Apply to [facility] e-betametha -09 area(s) 2 ity of sone cream 00:00: (two) [place] 00 times Medical daily. Branch cyclobenzap 2020-09 Yes [id number] TAKE 1 [facility] rine 5 mg 1-09 TABLET BY ity o f tablet 00:00: MOUTH [place] 00 EVERY 8 Medical HOURS Branch NEEDED econazole 2020-09 Yes [id number] Apply to [facility] nitrate 1 % 1-09 area(s) 2 ity of cream 00:00: (two) [place] 00 times Medical daily. Branch albuterol 2020-09 Yes [id number] 2{puff} Inhale 2 [facility] (PROAIR 1-09 Puffs ity of HFA) 90 00:00: every 6 [place] mcg/actuati 00 (six) Medical on inhaler hours as Branc h needed for Wheezing or Shortness of Breath. triamcinolo 2020-09 Yes [id number] Apply to [facility] ne 0.025 % -09 area(s) 3 ity of ointment 00:00: (three) [place] 00 times Medical daily. For Branch itching diltiazem 2020-09 Yes [id number] 120mg Take 1 [facility] n[facility] (CARTIA XT) 1-09 capsule by it y of 120 mg 24 00:00: mouth 2 [place] hr capsule 00 (two) Medical times Branch daily. cyanocobala 2020-09 Yes [id number] 1000ug 1 mL by [facility] min 1,000 1-09 Intramuscu ity of mcg/mL 00:00: lar route [place] injection 00 every 2 Medical (two) Branch weeks. levothyroxi 2020-09 Yes [id number] 50ug Take 1 [facility] ne 50 mcg 1-09 tablet by ity o f tablet 00:00: mouth [place] 00 every Medical morning. Branch fluticasone 2020-09 Yes [id number] 2{puff} Inhale 2 [facility] propionate 1-09 Puffs ity of (FLOVENT 00:00: every 12 [place] HFA) 110 00 (twelve) Medical mcg/actuati hours. Branch on inhaler Rinse mouth after each use. levalbutero 2020-09 Yes [id number] .63mg Inhale [facility] l 0.63 mg/3 1-09 0.63 mg 3 ity of mL 00:00: (three) [place] nebulizer 00 times Medical solution daily as Branch needed for Wheezing or Shortness of Breath. losartan 50 2020-09 Yes [id number] 50mg Take 1 [facility] mg tablet 1-09 tablet by ity o f 00:00: mouth 2 [place] 00 (two) Medical times Branch daily. clotrimazol 2020-09 Yes [id number] Apply to [facility] e-betametha -09 area(s) 2 ity of sone cream 00:00: (two) [place] 00 times Medical daily. Branch cyclobenzap 2020-09 Yes [id number] TAKE 1 [facility] rine 5 mg -09 TABLET BY ity o f tablet 00:00: MOUTH [place] 00 EVERY 8 Medical HOURS Branch NEEDED econazole 2020-09 Yes [id number] Apply to [facility] nitrate 1 % 10-04 area(s) 2 ity of cream 00:00: (two) [place] 00 times Medical daily. Branch albuterol 2020-09 Yes [id number] 2{puff} Inhale 2 [facility] (PROAIR 1-09 Puffs ity of HFA) 90 00:00: every 6 [place] mcg/actuati 00 (six) Medical on inhaler hours as Branc h needed for Wheezing or Shortness of Breath. triamcinolo 2020-09 Yes [id number] Apply to [facility] ne 0.025 % 10-04 area(s) 3 ity of ointment 00:00: (three) [place] 00 times Medical daily. For Branch itching diltiazem 2020-09 Yes [id number] 120mg Take 1 [facility] n[facility] (CARTIA XT) 09 capsule by it y of 120 mg 24 00:00: mouth 2 [place] hr capsule 00 (two) Medical times Branch daily. cyanocobala 2020-09 Yes [id number] 1000ug 1 mL by [facility] min 1,000 1-09 Intramuscu ity of mcg/mL 00:00: lar route [place] injection 00 every 2 Medical (two) Branch weeks. levothyroxi 2020-09 Yes [id number] 50ug Take 1 [facility] ne 50 mcg 1-09 tablet by ity o f tablet 00:00: mouth [place] 00 every Medical morning. Branch fluticasone 2020-09 Yes [id number] 2{puff} Inhale 2 [facility] propionate 1-09 Puffs ity of (FLOVENT 00:00: every 12 [place] HFA) 110 00 (twelve) Medical mcg/actuati hours. Branch on inhaler Rinse mouth after each use. levalbutero 2020-09 Yes [id number] .63mg Inhale [facility] l 0.63 mg/3 1-09 0.63 mg 3 ity of mL 00:00: (three) [place] nebulizer 00 times Medical solution daily as Branch needed for Wheezing or Shortness of Breath. losartan 50 2020-09 Yes [id number] 50mg Take 1 [facility] mg tablet -09 tablet by ity o f 00:00: mouth 2 [place] 00 (two) Medical times Branch daily. clotrimazol 2020-09 Yes [id number] Apply to [facility] e-betametha 09 area(s) 2 ity of sone cream 00:00: (two) [place] 00 times Medical daily. Branch cyclobenzap 2020-09 Yes [id number] TAKE 1 [facility] rine 5 mg 10-04 TABLET BY ity o f tablet 00:00: MOUTH [place] 00 EVERY 8 Medical HOURS Branch NEEDED econazole 2020-09 Yes [id number] Apply to [facility] nitrate 1 % 10-04 area(s) 2 ity of cream 00:00: (two) [place] 00 times Medical daily. Branch albuterol 2020-09 Yes [id number] 2{puff} Inhale 2 [facility] (PROAIR -09 Puffs ity of HFA) 90 00:00: every 6 [place] mcg/actuati 00 (six) Medical on inhaler hours as Branc h needed for Wheezing or Shortness of Breath. triamcinolo 2020-09 Yes [id number] Apply to [facility] ne 0.025 % 10-04 area(s) 3 ity of ointment 00:00: (three) [place] 00 times Medical daily. For Branch itching diltiazem 2020-09 Yes [id number] 120mg Take 1 [facility] n[facility] (CARTIA XT) 09 capsule by it y of 120 mg 24 00:00: mouth 2 [place] hr capsule 00 (two) Medical times Branch daily. cyanocobala 2020-09 Yes [id number] 1000ug 1 mL by [facility] min 1,000 -09 Intramuscu ity of mcg/mL 00:00: lar route [place] injection 00 every 2 Medical (two) Branch weeks. levothyroxi 2020-09 Yes [id number] 50ug Take 1 [facility] ne 50 mcg 1-09 tablet by ity o f tablet 00:00: mouth [place] 00 every Medical morning. Branch fluticasone 2020-09 Yes [id number] 2{puff} Inhale 2 [facility] propionate 1-09 Puffs ity of (FLOVENT 00:00: every 12 [place] HFA) 110 00 (twelve) Medical mcg/actuati hours. Branch on inhaler Rinse mouth after each use. levalbutero 2020-09 Yes [id number] .63mg Inhale [facility] l 0.63 mg/3 1-09 0.63 mg 3 ity of mL 00:00: (three) [place] nebulizer 00 times Medical solution daily as Branch needed for Wheezing or Shortness of Breath. losartan 50 2020-09 Yes [id number] 50mg Take 1 [facility] mg tablet 1-09 tablet by ity o f 00:00: mouth 2 [place] 00 (two) Medical times Branch daily. clotrimazol 2020-09 Yes [id number] Apply to [facility] e-betametha -09 area(s) 2 ity of sone cream 00:00: (two) [place] 00 times Medical daily. Branch cyclobenzap 2020-09 Yes [id number] TAKE 1 [facility] rine 5 mg 1-09 TABLET BY ity o f tablet 00:00: MOUTH [place] 00 EVERY 8 Medical HOURS Branch NEEDED econazole 2020-09 Yes [id number] Apply to [facility] nitrate 1 % 09 area(s) 2 ity of cream 00:00: (two) [place] 00 times Medical daily. Branch albuterol 2020-09 Yes [id number] 2{puff} Inhale 2 [facility] (PROAIR 1-09 Puffs ity of HFA) 90 00:00: every 6 [place] mcg/actuati 00 (six) Medical on inhaler hours as Branc h needed for Wheezing or Shortness of Breath. triamcinolo 2020-09 Yes [id number] Apply to [facility] ne 0.025 % 1-09 area(s) 3 ity of ointment 00:00: (three) [place] 00 times Medical daily. For Branch itching diltiazem 2020-09 Yes [id number] 120mg Take 1 [facility] n[facility] (CARTIA XT) -09 capsule by it y of 120 mg 24 00:00: mouth 2 [place] hr capsule 00 (two) Medical times Branch daily. cyanocobala 2020-09 Yes [id number] 1000ug 1 mL by [facility] min 1,000 1-09 Intramuscu ity of mcg/mL 00:00: lar route [place] injection 00 every 2 Medical (two) Branch weeks. levothyroxi 2020-09 Yes [id number] 50ug Take 1 [facility] ne 50 mcg 1-09 tablet by ity o f tablet 00:00: mouth [place] 00 every Medical morning. Branch fluticasone 2020-09 Yes [id number] 2{puff} Inhale 2 [facility] propionate 1-09 Puffs ity of (FLOVENT 00:00: every 12 [place] HFA) 110 00 (twelve) Medical mcg/actuati hours. Branch on inhaler Rinse mouth after each use. levalbutero 2020-09 Yes [id number] .63mg Inhale [facility] l 0.63 mg/3 1-09 0.63 mg 3 ity of mL 00:00: (three) [place] nebulizer 00 times Medical solution daily as Branch needed for Wheezing or Shortness of Breath. losartan 50 2020-09 Yes [id number] 50mg Take 1 [facility] mg tablet 1-09 tablet by ity o f 00:00: mouth 2 [place] 00 (two) Medical times Branch daily. clotrimazol 2020-09 Yes [id number] Apply to [facility] e-betametha -09 area(s) 2 ity of sone cream 00:00: (two) [place] 00 times Medical daily. Branch cyclobenzap 2020-09 Yes [id number] TAKE 1 [facility] rine 5 mg 1-09 TABLET BY ity o f tablet 00:00: MOUTH [place] 00 EVERY 8 Medical HOURS Branch NEEDED econazole 2020-09 Yes [id number] Apply to [facility] nitrate 1 % 1-09 area(s) 2 ity of cream 00:00: (two) [place] 00 times Medical daily. Branch albuterol 2020-09 Yes [id number] 2{puff} Inhale 2 [facility] (PROAIR 1-09 Puffs ity of HFA) 90 00:00: every 6 [place] mcg/actuati 00 (six) Medical on inhaler hours as Branc h needed for Wheezing or Shortness of Breath. triamcinolo 2020-09 Yes [id number] Apply to [facility] ne 0.025 % 1-09 area(s) 3 ity of ointment 00:00: (three) [place] 00 times Medical daily. For Branch itching diltiazem 2020-09 Yes [id number] 120mg Take 1 [facility] n[facility] (CARTIA XT) 1-09 capsule by it y of 120 mg 24 00:00: mouth 2 [place] hr capsule 00 (two) Medical times Branch daily. cyanocobala 2020-09 Yes [id number] 1000ug 1 mL by [facility] min 1,000 -09 Intramuscu ity of mcg/mL 00:00: lar route [place] injection 00 every 2 Medical (two) Branch weeks. levothyroxi 2020-09 Yes [id number] 50ug Take 1 [facility] ne 50 mcg -09 tablet by ity o f tablet 00:00: mouth [place] 00 every Medical morning. Branch fluticasone 2020-09 Yes [id number] 2{puff} Inhale 2 [facility] propionate 1-09 Puffs ity of (FLOVENT 00:00: every 12 [place] HFA) 110 00 (twelve) Medical mcg/actuati hours. Branch on inhaler Rinse mouth after each use. levalbutero 2020-09 Yes [id number] .63mg Inhale [facility] l 0.63 mg/3 -09 0.63 mg 3 ity of mL 00:00: (three) [place] nebulizer 00 times Medical solution daily as Branch needed for Wheezing or Shortness of Breath. losartan 50 2020-09 Yes [id number] 50mg Take 1 [facility] mg tablet 09 tablet by ity o f 00:00: mouth 2 [place] 00 (two) Medical times Branch daily. clotrimazol 2020-09 Yes [id number] Apply to [facility] e-betametha 10-04 area(s) 2 ity of sone cream 00:00: (two) [place] 00 times Medical daily. Branch cyclobenzap 2020-09 Yes [id number] TAKE 1 [facility] rine 5 mg 1-09 TABLET BY ity o f tablet 00:00: MOUTH [place] 00 EVERY 8 Medical HOURS Branch NEEDED econazole 2020-09 Yes [id number] Apply to [facility] nitrate 1 % 09 area(s) 2 ity of cream 00:00: (two) [place] 00 times Medical daily. Branch albuterol 2020-09 Yes [id number] 2{puff} Inhale 2 [facility] (PROAIR 1-09 Puffs ity of HFA) 90 00:00: every 6 [place] mcg/actuati 00 (six) Medical on inhaler hours as Branc h needed for Wheezing or Shortness of Breath. triamcinolo 2020-09 Yes [id number] Apply to [facility] ne 0.025 % 1-09 area(s) 3 ity of ointment 00:00: (three) [place] 00 times Medical daily. For Branch itching diltiazem 2020-09 Yes [id number] 120mg Take 1 [facility] n[facility] (CARTIA XT) -09 capsule by it y of 120 mg 24 00:00: mouth 2 [place] hr capsule 00 (two) Medical times Branch daily. cyanocobala 2020-09 Yes [id number] 1000ug 1 mL by [facility] min 1,000 1-09 Intramuscu ity of mcg/mL 00:00: lar route [place] injection 00 every 2 Medical (two) Branch weeks. levothyroxi 2020-09 Yes [id number] 50ug Take 1 [facility] ne 50 mcg -09 tablet by ity o f tablet 00:00: mouth [place] 00 every Medical morning. Branch fluticasone 2020-09 Yes [id number] 2{puff} Inhale 2 [facility] propionate 1-09 Puffs ity of (FLOVENT 00:00: every 12 [place] HFA) 110 00 (twelve) Medical mcg/actuati hours. Branch on inhaler Rinse mouth after each use. levalbutero 2020-09 Yes [id number] .63mg Inhale [facility] l 0.63 mg/3 1-09 0.63 mg 3 ity of mL 00:00: (three) [place] nebulizer 00 times Medical solution daily as Branch needed for Wheezing or Shortness of Breath. losartan 50 2020-09 Yes [id number] 50mg Take 1 [facility] mg tablet -09 tablet by ity o f 00:00: mouth 2 [place] 00 (two) Medical times Branch daily. clotrimazol 2020-09 Yes [id number] Apply to [facility] e-betametha 1-09 area(s) 2 ity of sone cream 00:00: (two) [place] 00 times Medical daily. Branch cyclobenzap 2020-09 Yes [id number] TAKE 1 [facility] rine 5 mg 1-09 TABLET BY ity o f tablet 00:00: MOUTH [place] 00 EVERY 8 Medical HOURS Branch NEEDED econazole 2020-09 Yes [id number] Apply to [facility] nitrate 1 % -09 area(s) 2 ity of cream 00:00: (two) [place] 00 times Medical daily. Branch albuterol 2020-09 Yes [id number] 2{puff} Inhale 2 [facility] (PROAIR 1-09 Puffs ity of HFA) 90 00:00: every 6 [place] mcg/actuati 00 (six) Medical on inhaler hours as Branc h needed for Wheezing or Shortness of Breath. triamcinolo 2020-09 Yes [id number] Apply to [facility] ne 0.025 % -09 area(s) 3 ity of ointment 00:00: (three) [place] 00 times Medical daily. For Branch itching diltiazem 2020-09 Yes [id number] 120mg Take 1 [facility] n[facility] (CARTIA XT) 09 capsule by it y of 120 mg 24 00:00: mouth 2 [place] hr capsule 00 (two) Medical times Branch daily. cyanocobala 2020-09 Yes [id number] 1000ug 1 mL by [facility] min 1,000 -09 Intramuscu ity of mcg/mL 00:00: lar route [place] injection 00 every 2 Medical (two) Branch weeks. levothyroxi 2020-09 Yes [id number] 50ug Take 1 [facility] ne 50 mcg -09 tablet by ity o f tablet 00:00: mouth [place] 00 every Medical morning. Branch fluticasone 2020-09 Yes [id number] 2{puff} Inhale 2 [facility] propionate 1-09 Puffs ity of (FLOVENT 00:00: every 12 [place] HFA) 110 00 (twelve) Medical mcg/actuati hours. Branch on inhaler Rinse mouth after each use. levalbutero 2020-09 Yes [id number] .63mg Inhale [facility] l 0.63 mg/3 1-09 0.63 mg 3 ity of mL 00:00: (three) [place] nebulizer 00 times Medical solution daily as Branch needed for Wheezing or Shortness of Breath. losartan 50 2020-09 Yes [id number] 50mg Take 1 [facility] mg tablet 1-09 tablet by ity o f 00:00: mouth 2 [place] 00 (two) Medical times Branch daily. clotrimazol 2020-09 Yes [id number] Apply to [facility] e-betametha -09 area(s) 2 ity of sone cream 00:00: (two) [place] 00 times Medical daily. Branch cyclobenzap 2020-09 Yes [id number] TAKE 1 [facility] rine 5 mg -09 TABLET BY ity o f tablet 00:00: MOUTH [place] 00 EVERY 8 Medical HOURS Branch NEEDED econazole 2020-09 Yes [id number] Apply to [facility] nitrate 1 % -09 area(s) 2 ity of cream 00:00: (two) [place] 00 times Medical daily. Branch albuterol 2020-09 Yes [id number] 2{puff} Inhale 2 [facility] (PROAIR 1-09 Puffs ity of HFA) 90 00:00: every 6 [place] mcg/actuati 00 (six) Medical on inhaler hours as Branc h needed for Wheezing or Shortness of Breath. triamcinolo 2020-09 Yes [id number] Apply to [facility] ne 0.025 % 09 area(s) 3 ity of ointment 00:00: (three) [place] 00 times Medical daily. For Branch itching diltiazem 2020-09 Yes [id number] 120mg Take 1 [facility] n[facility] (CARTIA XT) 09 capsule by it y of 120 mg 24 00:00: mouth 2 [place] hr capsule 00 (two) Medical times Branch daily. cyanocobala 2020-09 Yes [id number] 1000ug 1 mL by [facility] min 1,000 1-09 Intramuscu ity of mcg/mL 00:00: lar route [place] injection 00 every 2 Medical (two) Branch weeks. levothyroxi 2020-09 Yes [id number] 50ug Take 1 [facility] ne 50 mcg -09 tablet by ity o f tablet 00:00: mouth [place] 00 every Medical morning. Branch fluticasone 2020-09 Yes [id number] 2{puff} Inhale 2 [facility] propionate 1-09 Puffs ity of (FLOVENT 00:00: every 12 [place] HFA) 110 00 (twelve) Medical mcg/actuati hours. Branch on inhaler Rinse mouth after each use. levalbutero 2020-09 Yes [id number] .63mg Inhale [facility] l 0.63 mg/3 1-09 0.63 mg 3 ity of mL 00:00: (three) [place] nebulizer 00 times Medical solution daily as Branch needed for Wheezing or Shortness of Breath. losartan 50 2020-09 Yes [id number] 50mg Take 1 [facility] mg tablet 10-04 tablet by ity o f 00:00: mouth 2 [place] 00 (two) Medical times Branch daily. clotrimazol 2020-09 Yes [id number] Apply to [facility] e-betametha 10-04 area(s) 2 ity of sone cream 00:00: (two) [place] 00 times Medical daily. Branch cyclobenzap 2020-09 Yes [id number] TAKE 1 [facility] rine 5 mg 10-04 TABLET BY ity o f tablet 00:00: MOUTH [place] 00 EVERY 8 Medical HOURS Branch NEEDED econazole 2020-09 Yes [id number] Apply to [facility] nitrate 1 % 10-04 area(s) 2 ity of cream 00:00: (two) [place] 00 times Medical daily. Branch albuterol 2020-09 Yes [id number] 2{puff} Inhale 2 [facility] (PROAIR 10-04 Puffs ity of HFA) 90 00:00: every 6 [place] mcg/actuati 00 (six) Medical on inhaler hours as Branc h needed for Wheezing or Shortness of Breath. triamcinolo 2020-09 Yes [id number] Apply to [facility] ne 0.025 % 10-04 area(s) 3 ity of ointment 00:00: (three) [place] 00 times Medical daily. For Branch itching diltiazem 2020-09 Yes [id number] 120mg Take 1 [facility] n[facility] (CARTIA XT) 10-04 capsule by it y of 120 mg 24 00:00: mouth 2 [place] hr capsule 00 (two) Medical times Branch daily. levothyroxi 2020-09- No [id number] 50ug Take 1 [facility] ne 50 mcg 10-04-13 tablet by ity of tablet 00:00: 00:00 mouth [place] 00 :00 every Medical morning. Branch losartan 50 2020-09- No [id number] 50mg Take 1 [facility] mg tablet 10-04 07-20 tablet by ity of 00:00: 00:00 mouth 2 [place] 00 :00 (two) Medical times Branch daily. diltiazem 2020-09- No [id number] 120mg Take 1 [facility] (CARTIA XT) 10-0420 capsule by i ty of 120 mg 24 00:00: 00:00 mouth 2 [place] hr capsule 00 :00 (two) Medical times Branch daily. rosuvastati 2020-09- No [id number] 10mg Take 1 [facility] n 10 mg 10-04 tablet by ity of tablet 00:00: 00:00 mouth at [place] 00 :00 bedtime. Medical Branch rosuvastati 2020-09- No [id number] 10mg Take 1 [facility] n 10 mg [...] Tab 00:00: [place] 00 Medical Branch FERROUS 20180 Yes [id number] TAKE ONE [facility] vers SULFATE 325 8-13 TABLET BY ity of mg (65 mg 00:00: MOUTH [place] iron) 00 THREE Medical tablet TIMES Branch DAILY WITH MEALS FERROUS Yes [id number] TAKE ONE [facility] SULFATE 325 8-13 TABLET BY ity of mg (65 mg 00:00: MOUTH [place] iron) 00 THREE Medical tablet TIMES Branch DAILY WITH MEALS FERROUS 0 Yes [id number] TAKE ONE [facility] SULFATE 325 8-13 TABLET BY ity of mg (65 mg 00:00: MOUTH [place] iron) 00 THREE Medical tablet TIMES Branch DAILY WITH MEALS FERROUS Yes [id number] TAKE ONE [facility] SULFATE 325 8-13 TABLET BY ity of mg (65 mg 00:00: MOUTH [place] iron) 00 THREE Medical tablet TIMES Branch DAILY WITH MEALS FERROUS 0 Yes [id number] TAKE ONE [facility] SULFATE 325 8-13 TABLET BY ity of mg (65 mg 00:00: MOUTH [place] iron) 00 THREE Medical tablet TIMES Branch DAILY WITH MEALS FERROUS 0 Yes [id number] TAKE ONE [facility] SULFATE 325 8-13 TABLET BY ity of mg (65 mg 00:00: MOUTH [place] iron) 00 THREE Medical tablet TIMES Branch DAILY WITH MEALS FERROUS Yes [id number] TAKE ONE [facility] SULFATE 325 8-13 TABLET BY ity of mg (65 mg 00:00: MOUTH [place] iron) 00 THREE Medical tablet TIMES Branch DAILY WITH MEALS FERROUS Yes [id number] TAKE ONE [facility] vers SULFATE 325 8-13 TABLET BY ity of mg (65 mg 00:00: MOUTH [place] iron) 00 THREE Medical tablet TIMES Branch DAILY WITH MEALS FERROUS Yes [id number] TAKE ONE [facility] vers SULFATE 325 8-13 TABLET BY ity of mg (65 mg 00:00: MOUTH [place] [facility]) 00 THREE Medical tablet TIMES Branch DAILY WITH MEALS FERROUS Yes [id number] TAKE ONE [facility] SULFATE 325 8-13 TABLET BY ity of mg (65 mg 00:00: MOUTH [place] [facility]) 00 THREE Medical tablet TIMES Branch DAILY WITH MEALS FERROUS Yes [id number] TAKE ONE [facility] SULFATE 325 8-13 TABLET BY [facility]y of mg (65 mg 00:00: MOUTH [place] [facility]) 00 THREE Medical tablet TIMES Branch DAILY WITH MEALS FERROUS Yes [id number] TAKE ONE [facility] SULFATE 325 8-13 TABLET BY ity of mg (65 mg 00:00: MOUTH [place] [facility]) 00 THREE Medical tablet TIMES Branch DAILY WITH MEALS FERROUS Yes [id number] TAKE ONE [facility] SULFATE 325 8-13 TABLET BY ity of mg (65 mg 00:00: MOUTH [place] [facility]) 00 THREE Medical tablet TIMES Branch DAILY WITH MEALS FERROUS Yes [id number] TAKE ONE [facility] SULFATE 325 8-13 TABLET BY [facility] of mg (65 mg 00:00: MOUTH [place] [facility]) 00 THREE Medical tablet TIMES Branch DAILY WITH MEALS FERROUS Yes [id number] TAKE ONE [facility] SULFATE 325 8-13 TABLET BY [facility] of mg (65 mg 00:00: MOUTH [place] [facility]) 00 THREE Medical tablet TIMES Branch DAILY WITH MEALS FERROUS Yes [id number] TAKE ONE [facility] SULFATE 325 8-13 TABLET BY ity of mg (65 mg 00:00: MOUTH [place] [facility]) 00 THREE Medical tablet TIMES Branch DAILY WITH MEALS FERROUS Yes [id number] TAKE ONE [facility] vers SULFATE 325 8-13 TABLET BY ity of mg (65 mg 00:00: MOUTH [place] [facility]) 00 THREE Medical tablet TIMES Branch DAILY WITH MEALS FERROUS Yes [id number] TAKE ONE [facility] vers SULFATE 325 8-13 TABLET BY ity of mg (65 mg 00:00: MOUTH [place] [facility]) 00 THREE Medical tablet TIMES Branch DAILY WITH MEALS FERROUS Yes [id number] TAKE ONE [facility] vers SULFATE 325 8-13 TABLET BY ity of mg (65 mg 00:00: MOUTH [place] [facility]) 00 THREE Medical tablet TIMES Branch DAILY WITH MEALS FERROUS Yes [id number] TAKE ONE [facility] vers SULFATE 325 8-13 TABLET BY ity of mg (65 mg 00:00: MOUTH [place] [facility]) 00 THREE Medical tablet TIMES Branch DAILY WITH MEALS FERROUS Yes [id number] TAKE ONE [facility] vers SULFATE 325 8-13 TABLET BY ity of mg (65 mg 00:00: MOUTH [place] [facility]) 00 THREE Medical tablet TIMES Branch DAILY WITH MEALS FERROUS Yes [id number] TAKE ONE [facility] SULFATE 325 8-13 TABLET BY ity of mg (65 mg 00:00: MOUTH [place] [facility]) 00 THREE Medical tablet TIMES Branch DAILY WITH MEALS FERROUS Yes [id number] TAKE ONE [facility] vers SULFATE 325 8-13 TABLET BY ity of mg (65 mg 00:00: MOUTH [place] [facility]) 00 THREE Medical tablet TIMES Branch DAILY WITH MEALS FERROUS Yes [id number] TAKE ONE [facility] vers SULFATE 325 8-13 TABLET BY it[facility] of mg (65 mg 00:00: MOUTH [place] [facility]) 00 THREE Medical tablet TIMES Branch DAILY WITH MEALS FERROUS Yes [id number] TAKE ONE [facility] vers SULFATE 325 8-13 TABLET BY ity of mg (65 mg 00:00: MOUTH [place] [facility]) 00 THREE Medical tablet TIMES Branch DAILY WITH MEALS FERROUS Yes [id number] TAKE ONE [facility] SULFATE 325 8-13 TABLET BY ity of mg (65 mg 00:00: MOUTH [place] [facility]) 00 THREE Medical tablet TIMES Branch DAILY WITH MEALS FERROUS Yes [id number] TAKE ONE [facility] vers SULFATE 325 8-13 TABLET BY ity of mg (65 mg 00:00: MOUTH [place] [facility]) 00 THREE Medical tablet TIMES Branch DAILY WITH MEALS FERROUS Yes [id number] TAKE ONE [facility] SULFATE 325 8-13 TABLET BY ity of mg (65 mg 00:00: MOUTH [place] [facility]) 00 THREE Medical tablet TIMES Branch DAILY WITH MEALS FERROUS Yes [id number] TAKE ONE [facility] SULFATE 325 8-13 TABLET BY ity of mg (65 mg 00:00: MOUTH [place] [facility]) 00 THREE Medical tablet TIMES Branch DAILY WITH MEALS FERROUS Yes [id number] TAKE ONE [facility] SULFATE 325 8-13 TABLET BY it[facility] of mg (65 mg 00:00: MOUTH [place] [facility]) 00 THREE Medical tablet TIMES Branch DAILY WITH MEALS FERROUS Yes [id number] TAKE ONE [facility] vers SULFATE 325 8-13 TABLET BY ity of mg (65 mg 00:00: MOUTH [place] [facility]) 00 THREE Medical tablet TIMES Branch DAILY WITH MEALS FERROUS Yes [id number] TAKE ONE [facility] vers SULFATE 325 8-13 TABLET BY ity of mg (65 mg 00:00: MOUTH [place] [facility]) 00 THREE Medical tablet TIMES Branch DAILY WITH MEALS FERROUS Yes [id number] TAKE ONE [facility] SULFATE 325 8-13 TABLET BY ity of mg (65 mg 00:00: MOUTH [place] [facility]) 00 THREE Medical tablet TIMES Branch DAILY WITH MEALS FERROUS Yes [id number] TAKE ONE [facility] vers SULFATE 325 8-13 TABLET BY ity of mg (65 mg 00:00: MOUTH [place] [facility]) 00 THREE Medical tablet TIMES Branch DAILY WITH MEALS FERROUS Yes [id number] TAKE ONE [facility] SULFATE 325 8-13 TABLET BY ity of mg (65 mg 00:00: MOUTH [place] [facility]) 00 THREE Medical tablet TIMES Branch DAILY WITH MEALS FERROUS Yes [id number] TAKE ONE [facility] SULFATE 325 8-13 TABLET BY ity of mg (65 mg 00:00: MOUTH [place] [facility]) 00 THREE Medical tablet TIMES Branch DAILY WITH MEALS FERROUS Yes [id number] TAKE ONE [facility] SULFATE 325 8-13 TABLET BY [facility] of mg (65 mg 00:00: MOUTH [place] [facility]) 00 THREE Medical tablet TIMES Branch DAILY WITH MEALS FERROUS Yes [id number] TAKE ONE [facility] SULFATE 325 8-13 TABLET BY [facility] of mg (65 mg 00:00: MOUTH [place] [facility]) 00 THREE Medical tablet TIMES Branch DAILY WITH MEALS FERROUS Yes [id number] TAKE ONE [facility] SULFATE 325 8-13 TABLET BY [facility] of mg (65 mg 00:00: MOUTH [place] [facility]) 00 THREE Medical tablet TIMES Branch DAILY WITH MEALS FERROUS Yes [id number] TAKE ONE [facility] SULFATE 325 8-13 TABLET BY ity of mg (65 mg 00:00: MOUTH [place] [facility]) 00 THREE Medical tablet TIMES Branch DAILY WITH MEALS FERROUS Yes [id number] TAKE ONE [facility] SULFATE 325 8-13 TABLET BY [facility] of mg (65 mg 00:00: MOUTH [place] [facility]) 00 THREE Medical tablet TIMES Branch DAILY WITH MEALS FERROUS Yes [id number] TAKE ONE [facility] SULFATE 325 8-13 TABLET BY [facility] of mg (65 mg 00:00: MOUTH [place] [facility]) 00 THREE Medical tablet TIMES Branch DAILY WITH MEALS FERROUS Yes [id number] TAKE ONE [facility] SULFATE 325 8-13 TABLET BY [facility] of mg (65 mg 00:00: MOUTH [place] [facility]) 00 THREE Medical tablet TIMES Branch DAILY WITH MEALS FERROUS Yes [id number] TAKE ONE [facility] SULFATE 325 8-13 TABLET BY [facility] of mg (65 mg 00:00: MOUTH [place] [facility]) 00 THREE Medical tablet TIMES Branch DAILY WITH MEALS FERROUS Yes [id number] TAKE ONE [facility] SULFATE 325 8-13 TABLET BY [facility] of mg (65 mg 00:00: MOUTH [place] [facility]) 00 THREE Medical tablet TIMES Branch DAILY WITH MEALS FERROUS Yes [id number] TAKE ONE [facility] SULFATE 325 8-13 TABLET BY [facility] of mg (65 mg 00:00: MOUTH [place] [facility]) 00 THREE Medical tablet TIMES Branch DAILY WITH MEALS FERROUS Yes [id number] TAKE ONE [facility] SULFATE 325 8-13 TABLET BY [facility] of mg (65 mg 00:00: MOUTH [place] [facility]) 00 THREE Medical tablet TIMES Branch DAILY WITH MEALS FERROUS Yes [id number] TAKE ONE [facility] SULFATE 325 8-13 TABLET BY [facility] of mg (65 mg 00:00: MOUTH [place] [facility]) 00 THREE Medical tablet TIMES Branch DAILY WITH MEALS FERROUS Yes [id number] TAKE ONE [facility] SULFATE 325 8-13 TABLET BY [facility] of mg (65 mg 00:00: MOUTH [place] [facility]) 00 THREE Medical tablet TIMES Branch DAILY WITH MEALS coQ10, Yes [id number] 1{capsu Take 1 U nivers ubiquinol, 1-16 le} capsule by ity of 100 mg Cap 00:00: mouth [place] 00 daily. [facility] Branch coQ10, Yes [id number] 1{capsu Take 1 [facility] nivers ubiquinol, 1-16 le} capsule by ity of 100 mg Cap 00:00: mouth [place] 00 daily. [facility] coQ10, Yes [id number] 1{capsu Take 1 [facility]ivers ubiquinol, 1-16 le} capsule by ity of 100 mg Cap 00:00: mouth [place] 00 daily. [facility] coQ10, Yes [id number] 1{capsu Take 1 [facility] nivers ubiquinol, 1-16 le} capsule by ity of 100 mg Cap 00:00: mouth [place] 00 daily. [facility] coQ10, Yes [id number] 1{capsu Take 1 [facility] nivers ubiquinol, 1-16 le} capsule by ity of 100 mg Cap 00:00: mouth [place] 00 daily. [facility] coQ10, Yes [id number] 1{capsu Take 1 U nivers ubiquinol, 1-16 le} capsule by ity of 100 mg Cap 00:00: mouth [place] 00 daily. [facility] coQ10, Yes [id number] 1{capsu Take 1 U nivers ubiquinol, 1-16 le} capsule by ity of 100 mg Cap 00:00: mouth [place] 00 daily. [facility] coQ10, Yes [id number] 1{capsu Take 1 U nivers ubiquinol, 1-16 le} capsule by ity of 100 mg Cap 00:00: mouth [place] 00 daily. [facility] coQ10, Yes [id number] 1{capsu Take 1 U nivers ubiquinol, 1-16 le} capsule by ity of 100 mg Cap 00:00: mouth [place] 00 daily. [facility] coQ10, Yes [id number] 1{capsu Take 1 U nivers ubiquinol, 1-16 le} capsule by ity of 100 mg Cap 00:00: mouth [place] 00 daily. [facility] coQ10, Yes [id number] 1{capsu Take 1 U nivers ubiquinol, 1-16 le} capsule by ity of 100 mg Cap 00:00: mouth [place] 00 daily. [facility] coQ10, Yes [id number] 1{capsu Take 1 U nivers ubiquinol, 1-16 le} capsule by ity of 100 mg Cap 00:00: mouth [place] 00 daily. [facility] coQ10, Yes [id number] 1{capsu Take 1 U nivers ubiquinol, 1-16 le} capsule by ity of 100 mg Cap 00:00: mouth [place] 00 daily. [facility] coQ10, Yes [id number] 1{capsu Take 1 U nivers ubiquinol, 1-16 le} capsule by ity of 100 mg Cap 00:00: mouth [place] 00 daily. [facility] Branch coQ10, Yes [id number] 1{capsu Take 1 U nivers ubiquinol, 1-16 le} capsule by ity of 100 mg Cap 00:00: mouth [place] 00 daily. [facility] Branch coQ10, Yes [id number] 1{capsu Take 1 U nivers ubiquinol, 1-16 le} capsule by ity of 100 mg Cap 00:00: mouth [place] 00 daily. [facility] Branch coQ10, Yes [id number] 1{capsu Take 1 U nivers ubiquinol, 1-16 le} capsule by ity of 100 mg Cap 00:00: mouth [place] 00 daily. [facility] Branch coQ10, Yes [id number] 1{capsu Take 1 U nivers ubiquinol, 1-16 le} capsule by ity of 100 mg Cap 00:00: mouth [place] 00 daily. [facility] Branch coQ10, Yes [id number] 1{capsu Take 1 U nivers ubiquinol, 1-16 le} capsule by ity of 100 mg Cap 00:00: mouth [place] 00 daily. [facility] Branch coQ10, Yes [id number] 1{capsu Take 1 U nivers ubiquinol, 1-16 le} capsule by ity of 100 mg Cap 00:00: mouth [place] 00 daily. [facility] coQ10, Yes [id number] 1{capsu Take 1 U nivers ubiquinol, 1-16 le} capsule by ity of 100 mg Cap 00:00: mouth [place] 00 daily. [facility] Branch coQ10, Yes [id number] 1{capsu Take 1 U nivers ubiquinol, 1-16 le} capsule by ity of 100 mg Cap 00:00: mouth [place] 00 daily. [facility] Branch coQ10, Yes [id number] 1{capsu Take 1 U nivers ubiquinol, 1-16 le} capsule by ity of 100 mg Cap 00:00: mouth [place] 00 daily. [facility] Branch coQ10, Yes [id number] 1{capsu Take 1 U nivers ubiquinol, 1-16 le} capsule by ity of 100 mg Cap 00:00: mouth [place] 00 daily. Medical Branch coQ10, Yes [id number] 1{capsu Take 1 U nivers ubiquinol, 1-16 le} capsule by ity of 100 mg Cap 00:00: mouth [place] 00 daily. [facility] Branch coQ10, Yes [id number] 1{capsu Take 1 U nivers ubiquinol, 1-16 le} capsule by ity of 100 mg Cap 00:00: mouth [place] 00 daily. Medical Branch coQ10, Yes [id number] 1{capsu Take 1 U nivers ubiquinol, 1-16 le} capsule by ity of 100 mg Cap 00:00: mouth [place] 00 daily. Medical Branch coQ10, Yes [id number] 1{capsu Take 1 U nivers ubiquinol, 1-16 le} capsule by ity of 100 mg Cap 00:00: mouth [place] 00 daily. Medical Branch coQ10, Yes [id number] 1{capsu Take 1 U nivers ubiquinol, 1-16 le} capsule by ity of 100 mg Cap 00:00: mouth [place] 00 daily. Medical Branch coQ10, Yes [id number] 1{capsu Take 1 U nivers ubiquinol, 1-16 le} capsule by ity of 100 mg Cap 00:00: mouth [place] 00 daily. Medical Branch coQ10, Yes [id number] 1{capsu Take 1 U nivers ubiquinol, 1-16 le} capsule by ity of 100 mg Cap 00:00: mouth [place] 00 daily. Medical Branch coQ10, Yes [id number] 1{capsu Take 1 U nivers ubiquinol, 1-16 le} capsule by ity of 100 mg Cap 00:00: mouth [place] 00 daily. Medical Branch coQ10, Yes [id number] 1{capsu Take 1 U nivers ubiquinol, 1-16 le} capsule by ity of 100 mg Cap 00:00: mouth [place] 00 daily. Medical Branch coQ10, Yes [id number] 1{capsu Take 1 U nivers ubiquinol, 1-16 le} capsule by ity of 100 mg Cap 00:00: mouth [place] 00 daily. Medical Branch coQ10, Yes [id number] 1{capsu Take 1 U nivers ubiquinol, 1-16 le} capsule by ity of 100 mg Cap 00:00: mouth [place] 00 daily. Medical Branch coQ10, Yes [id number] 1{capsu Take 1 U nivers ubiquinol, 1-16 le} capsule by ity of 100 mg Cap 00:00: mouth [place] 00 daily. Medical Branch coQ10, Yes [id number] 1{capsu Take 1 U nivers ubiquinol, 1-16 le} capsule by ity of 100 mg Cap 00:00: mouth [place] 00 daily. Medical Branch coQ10, Yes [id number] 1{capsu Take 1 U nivers ubiquinol, 1-16 le} capsule by ity of 100 mg Cap 00:00: mouth [place] 00 daily. [facility] Branch coQ10, Yes [id number] 1{capsu Take 1 U nivers ubiquinol, 1-16 le} capsule by ity of 100 mg Cap 00:00: mouth [place] 00 daily. [facility] Branch coQ10, Yes [id number] 1{capsu Take 1 U nivers ubiquinol, 1-16 le} capsule by ity of 100 mg Cap 00:00: mouth [place] 00 daily. [facility] Branch coQ10, Yes [id number] 1{capsu Take 1 U nivers ubiquinol, 1-16 le} capsule by ity of 100 mg Cap 00:00: mouth [place] 00 daily. Medical Branch coQ10, Yes [id number] 1{capsu Take 1 U nivers ubiquinol, 1-16 le} capsule by ity of 100 mg Cap 00:00: mouth [place] 00 daily. [facility] Branch coQ10, Yes [id number] 1{capsu Take 1 U nivers ubiquinol, 1-16 le} capsule by ity of 100 mg Cap 00:00: mouth [place] 00 daily. Medical Branch coQ10, Yes [id number] 1{capsu Take 1 U nivers ubiquinol, 1-16 le} capsule by ity of 100 mg Cap 00:00: mouth [place] 00 daily. Medical Branch coQ10, Yes [id number] 1{capsu Take 1 U nivers ubiquinol, 1-16 le} capsule by ity of 100 mg Cap 00:00: mouth [place] 00 daily. [facility] Branch coQ10, Yes [id number] 1{capsu Take 1 U nivers ubiquinol, 1-16 le} capsule by ity of 100 mg Cap 00:00: mouth [place] 00 daily. [facility] Branch coQ10, Yes [id number] 1{capsu Take 1 U nivers ubiquinol, 1-16 le} capsule by ity of 100 mg Cap 00:00: mouth [place] 00 daily. Medical Branch coQ10, 2017-0 Yes [id number] 1{capsu Take 1 U nivers ubiquinol, 1-16 le} capsule by ity of 100 mg Cap 00:00: mouth [place] 00 daily. Medical Branch coQ10, 0 Yes [id number] 1{capsu Take 1 U nivers ubiquinol, 1-16 le} capsule by ity of 100 mg Cap 00:00: mouth [place] 00 daily. Medical Branch loratadine Yes [id number] 10mg Take 1 [facility] 10 mg 1-23 tablet by ity of tablet 00:00: mouth [place] 00 daily. Medical Branch loratadine Yes [id number] 10mg Take 1 [facility] 10 mg 1-23 tablet by ity of tablet 00:00: mouth [place] 00 daily. Medical Branch loratadine Yes [id number] 10mg Take 1 [facility] 10 mg 1-23 tablet by ity of tablet 00:00: mouth [place] 00 daily. Medical Branch loratadine Yes [id number] 10mg Take 1 [facility] 10 mg 1-23 tablet by ity of tablet 00:00: mouth [place] 00 daily. Medical Branch loratadine Yes [id number] 10mg Take 1 [facility] 10 mg 1-23 tablet by ity of tablet 00:00: mouth [place] 00 daily. Medical Branch loratadine 2- No [id number] 10mg Take 1 [facility] 10 mg 1-23 06-13 tablet by ity of tablet 00:00: 00:00 mouth [place] 00 :00 daily. [facility] Branch Immunizations Ordered Immunization Filled Immunization Date Status Commen ts Source Name Name [facility] (hep a/hep b) 2022-02-24 Completed [facility] vers[facility] of 00:00:00 [facility] (hep a/hep b) 2022-02-24 Completed [facility] vers[facility] of 00:00:00 [facility] (hep a/hep b) 2022-02-24 Completed [facility] versity of 00:00:00 [facility] (hep a/hep b) 2022-02-24 Completed Uni versity of 00:00:00 [facility] (hep a/hep b) 2022-02-24 Completed Uni versity of 00:00:00 [facility] (hep a/hep b) 2022-02-24 Completed [facility] vers[facility] of 00:00:00 [place] [facility] (hep a/hep b) 2022-02-24 Completed [facility] vers[facility] of 00:00:00 [place] [facility] (hep a/hep b) 2022-02-24 Completed [facility] vers[facility] of 00:00:00 [place] [facility] (hep a/hep b) 2022-02-24 Completed [facility] vers[facility] of 00:00:00 [place] [facility] (hep a/hep b) 2022-02-24 Completed [facility] vers[facility] of 00:00:00 [facility] (hep a/hep b) 2022-02-24 Completed Uni versity of 00:00:00 [facility] (hep a/hep b) 2022-02-24 Completed [facility] versity of 00:00:00 [facility] (hep a/hep b) 2022-02-24 Completed [facility] versity of 00:00:00 [facility] (hep a/hep b) 2022-02-24 Completed [facility] versity of 00:00:00 [facility] (hep a/hep b) 2022-02-24 Completed [facility] versity of 00:00:00 [facility] (hep a/hep b) 2022-02-24 Completed [facility] versity of 00:00:00 [facility] (hep a/hep b) 2022-02-24 Completed [facility] versity of 00:00:00 [facility] (hep a/hep b) 2022-02-24 Completed [facility] versity of 00:00:00 [facility] (hep a/hep b) 2022-02-24 Completed [facility] versity of 00:00:00 [facility] (hep a/hep b) 2022-02-24 Completed [facility] versity of 00:00:00 [facility] (hep a/hep b) 2022-02-24 Completed [facility] versity of 00:00:00 [facility] (hep a/hep b) 2022-02-24 Completed [...] b) 2022-02-24 Completed [facility] vers[facility] of 00:00:00 [place] [facility] (hep a/hep b) 2022-02-24 Completed [facility] vers[facility] of 00:00:00 [place] [facility] (hep a/hep b) 2022-02-24 Completed [facility] vers[facility] of 00:00:00 [place] [facility] (hep a/hep b) 2022-02-24 Completed [facility] vers[facility] of 00:00:00 [facility] (hep a/hep b) 2022-02-24 Completed [facility] versity of 00:00:00 [facility] (hep a/hep b) 2022-02-24 Completed [facility] versity of 00:00:00 [facility] (hep a/hep b) 2022-02-24 Completed Uni versity of 00:00:00 [place] [facility] (hep a/hep b) 2022-02-24 Completed Uni versity of 00:00:00 [place] [facility] (hep a/hep b) 2022-02-24 Completed Uni versity of 00:00:00 [place] [facility] (hep a/hep b) 2022-02-24 Completed Uni versity of 00:00:00 [place] [facility] (hep a/hep b) 2022-02-24 Completed Uni versity of 00:00:00 [place] [facility] (hep a/hep b) 2022-02-24 Completed Uni versity of 00:00:00 [facility] (hep a/hep b) 2022-02-24 Completed Uni versity of 00:00:00 [place] [facility] (hep a/hep b) 2022-02-24 Completed Uni versity of 00:00:00 [place] [facility] (hep a/hep b) 2022-02-24 Completed Uni versity of 00:00:00 [place] [facility] (hep a/hep b) 2022-02-24 Completed Uni versity of 00:00:00 [place] [facility] (hep a/hep b) 2022-02-24 Completed Uni versity of 00:00:00 [facility] (hep a/hep b) 2022-02-24 Completed Uni versity of 00:00:00 [facility] (hep a/hep b) 2022-02-24 Completed Uni versity of 00:00:00 [facility] (hep a/hep b) 2022-02-24 Completed Uni versity of 00:00:00 [facility] (hep a/hep b) 2022-02-24 Completed Uni versity of 00:00:00 [facility] (hep a/hep b) 2022-02-24 Completed Uni versity of 00:00:00 [facility] (hep a/hep b) 2022-01-14 Completed Uni versity of 00:00:00 [facility] (hep a/hep b) 2022-01-14 Completed Uni versity of 00:00:00 [facility] (hep a/hep b) 2022-01-14 Completed Uni versity of 00:00:00 [facility] (hep a/hep b) 2022-01-14 Completed Uni versity of 00:00:00 [place] [facility] (hep a/hep b) 2022-01-14 Completed Uni versity of 00:00:00 [facility] (hep a/hep b) 2022-01-14 Completed Uni versity of 00:00:00 [facility] (hep a/hep b) 2022-01-14 Completed [...] b) 2022-01-14 Completed [facility] versity of 00:00:00 [place] [facility] (hep a/hep b) 2022-01-14 Completed Uni versity of 00:00:00 [facility] (hep a/hep b) 2022-01-14 Completed Uni versity of 00:00:00 [facility] (hep a/hep b) 2022-01-14 Completed Uni versity of 00:00:00 [facility] (hep a/hep b) 2022-01-14 Completed Uni versity of 00:00:00 [facility] (hep a/hep b) 2022-01-14 Completed Uni versity of 00:00:00 [facility] (hep a/hep b) 2022-01-14 Completed Uni versity of 00:00:00 [place] [facility] (hep a/hep b) 2022-01-14 Completed Uni versity of 00:00:00 [place] [facility] (hep a/hep b) 2022-01-14 Completed Uni versity of 00:00:00 [place] [facility] (hep a/hep b) 2022-01-14 Completed Uni versity of 00:00:00 [place] [facility] (hep a/hep b) 2022-01-14 Completed Uni versity of 00:00:00 [place] [facility] (hep a/hep b) 2022-01-14 Completed Uni versity of 00:00:00 [place] [facility] (hep a/hep b) 2022-01-14 Completed Uni versity of 00:00:00 [place] [facility] (hep a/hep b) 2022-01-14 Completed Uni versity of 00:00:00 [place] [facility] (hep a/hep b) 2022-01-14 Completed Uni versity of 00:00:00 [place] [facility] (hep a/hep b) 2022-01-14 Completed Uni versity of 00:00:00 [place] [facility] (hep a/hep b) 2022-01-14 Completed Uni versity of 00:00:00 [place] [facility] (hep a/hep b) 2022-01-14 Completed Uni versity of 00:00:00 [facility] (hep a/hep b) 2022-01-14 Completed Uni versity of 00:00:00 [facility] (hep a/hep b) 2022-01-14 Completed Uni versity of 00:00:00 [facility] (hep a/hep b) 2022-01-14 Completed Uni versity of 00:00:00 [facility] (hep a/hep b) 2022-01-14 Completed Uni versity of 00:00:00 [facility] (hep a/hep b) 2022-01-14 Completed Uni versity of 00:00:00 [facility] (hep a/hep b) 2022-01-14 Completed Uni versity of 00:00:00 [facility] (hep a/hep b) 2022-01-14 Completed Uni versity of 00:00:00 [place] [facility] (hep a/hep b) 2022-01-14 Completed Uni versity of 00:00:00 [place] [facility] (hep a/hep b) 2022-01-14 Completed Uni versity of 00:00:00 [facility] (hep a/hep b) 2022-01-14 Completed Uni versity of 00:00:00 [place] [facility] (hep a/hep b) 2022-01-14 Completed Uni versity of 00:00:00 [facility] (hep a/hep b) 2022-01-14 Completed Uni versity of 00:00:00 [facility] (hep a/hep b) 2022-01-14 Completed Uni versity of 00:00:00 [facility] (hep a/hep b) 2022-01-14 Completed Uni versity of 00:00:00 [facility] (hep a/hep b) 2022-01-14 Completed Uni versity of 00:00:00 [facility] (hep a/hep b) 2022-01-14 Completed Uni versity of 00:00:00 [facility] (hep a/hep b) 2022-01-14 Completed Uni versity of 00:00:00 [facility] (hep a/hep b) 2022-01-14 Completed Uni versity of 00:00:00 [facility] (hep a/hep b) 2022-01-14 Completed Uni versity of 00:00:00 [facility] SARS-COV-2 COVID-19 2021-07-23 Completed Unive rsity of PFIZER VACCINE 00:00:00 [facility] SARS-COV-2 COVID-19 2021-07-23 Completed Unive rsity of PFIZER VACCINE 00:00:00 [facility] SARS-COV-2 COVID-19 2021-07-23 Completed Unive rsity of PFIZER VACCINE 00:00:00 [facility] SARS-COV-2 COVID-19 2021-07-23 Completed Unive rsity of PFIZER VACCINE 00:00:00 [facility] SARS-COV-2 COVID-19 2021-07-23 Completed Unive rsity of PFIZER VACCINE 00:00:00 [facility] SARS-COV-2 COVID-19 2021-07-23 Completed Unive rsity of PFIZER VACCINE 00:00:00 [facility] SARS-COV-2 COVID-19 2021-07-23 Completed Unive rsity of PFIZER VACCINE 00:00:00 [facility] SARS-COV-2 COVID-19 2021-07-23 Completed [facility] PFIZER VACCINE 00:00:00 [facility] SARS-COV-2 COVID-19 2021-07-23 Completed [facility] PFIZER VACCINE 00:00:00 [facility] SARS-COV-2 COVID-19 2021-07-23 Completed [facility] PFIZER VACCINE 00:00:00 [facility] SARS-COV-2 COVID-19 2021-07-23 Completed [facility] PFIZER VACCINE 00:00:00 [facility] SARS-COV-2 COVID-19 2021-07-23 Completed [facility] PFIZER VACCINE 00:00:00 [facility] SARS-COV-2 COVID-19 2021-07-23 Completed [facility] PFIZER VACCINE 00:00:00 [facility] SARS-COV-2 COVID-19 2021-07-23 Completed [facility] PFIZER VACCINE 00:00:00 [facility] SARS-COV-2 COVID-19 2021-07-23 Completed [facility] PFIZER VACCINE 00:00:00 [facility] SARS-COV-2 COVID-19 2021-07-23 Completed [facility] PFIZER VACCINE 00:00:00 [facility] SARS-COV-2 COVID-19 2021-07-23 Completed [facility] PFIZER VACCINE 00:00:00 [facility] SARS-COV-2 COVID-19 2021-07-23 Completed [facility] PFIZER VACCINE 00:00:00 [facility] SARS-COV-2 COVID-19 2021-07-23 Completed [facility] PFIZER VACCINE 00:00:00 [facility] SARS-COV-2 COVID-19 2021-07-23 Completed [facility] PFIZER VACCINE 00:00:00 [facility] SARS-COV-2 COVID-19 2021-07-23 Completed [facility] PFIZER VACCINE 00:00:00 [facility] SARS-COV-2 COVID-19 2021-07-23 Completed [facility] PFIZER VACCINE 00:00:00 [facility] SARS-COV-2 COVID-19 2021-07-23 Completed [facility] PFIZER VACCINE 00:00:00 [facility] SARS-COV-2 COVID-19 2021-07-23 Completed [facility] PFIZER VACCINE 00:00:00 [facility] SARS-COV-2 COVID-19 2021-07-23 Completed [facility] PFIZER VACCINE 00:00:00 [facility] SARS-COV-2 COVID-19 2021-07-23 Completed [facility] PFIZER VACCINE 00:00:00 [facility] SARS-COV-2 COVID-19 2021-07-23 Completed [facility] PFIZER VACCINE 00:00:00 [facility] SARS-COV-2 COVID-19 2021-07-23 Completed [facility] PFIZER VACCINE 00:00:00 [facility] SARS-COV-2 COVID-19 2021-07-23 Completed [facility] PFIZER VACCINE 00:00:00 [facility] SARS-COV-2 COVID-19 2021-07-23 Completed [facility] PFIZER VACCINE 00:00:00 [facility] SARS-COV-2 COVID-19 2021-07-23 Completed [facility] PFIZER VACCINE 00:00:00 [facility] SARS-COV-2 COVID-19 2021-07-23 Completed [facility] PFIZER VACCINE 00:00:00 [facility] SARS-COV-2 COVID-19 2021-07-23 Completed [facility] PFIZER VACCINE 00:00:00 [facility] SARS-COV-2 COVID-19 2021-07-23 Completed [facility] PFIZER VACCINE 00:00:00 [facility] SARS-COV-2 COVID-19 2021-07-23 Completed [facility] PFIZER VACCINE 00:00:00 [facility] SARS-COV-2 COVID-19 2021-07-23 Completed [facility] PFIZER VACCINE 00:00:00 [facility] SARS-COV-2 COVID-19 2021-07-23 Completed [facility] PFIZER VACCINE 00:00:00 [facility] SARS-COV-2 COVID-19 2021-07-23 Completed [facility] PFIZER VACCINE 00:00:00 [facility] SARS-COV-2 COVID-19 2021-07-23 Completed [facility] PFIZER VACCINE 00:00:00 [facility] SARS-COV-2 COVID-19 2021-07-23 Completed [facility] PFIZER VACCINE 00:00:00 [facility] SARS-COV-2 COVID-19 2021-07-23 Completed [facility] PFIZER VACCINE 00:00:00 [facility] SARS-COV-2 COVID-19 2021-07-23 Completed [facility] PFIZER VACCINE 00:00:00 [facility] SARS-COV-2 COVID-19 2021-07-23 Completed [facility] PFIZER VACCINE 00:00:00 [facility] SARS-COV-2 COVID-19 2021-07-23 Completed [facility] PFIZER VACCINE 00:00:00 [facility] SARS-COV-2 COVID-19 2021-07-23 Completed [facility] PFIZER VACCINE 00:00:00 [facility] SARS-COV-2 COVID-19 2021-07-23 Completed [facility] PFIZER VACCINE 00:00:00 [facility] SARS-COV-2 COVID-19 2021-07-23 Completed [facility] PFIZER VACCINE 00:00:00 [facility] SARS-COV-2 COVID-19 2021-07-23 Completed [facility] PFIZER VACCINE 00:00:00 [facility] SARS-COV-2 COVID-19 2021-07-23 Completed [facility] PFIZER VACCINE 00:00:00 [facility] Influenza Virus 2021-05-27 Completed [facility] Vaccine (3+ yrs) 00:00:00 [facility] Influenza Virus 2021-05-27 Completed [facility] Vaccine (3+ yrs) 00:00:00 [facility] Influenza Virus 2021-05-27 Completed [facility] Vaccine (3+ yrs) 00:00:00 [facility] Influenza Virus 2021-05-27 Completed [facility] Vaccine (3+ yrs) 00:00:00 [facility] Influenza Virus 2021-05-27 Completed [facility] Vaccine (3+ yrs) 00:00:00 [facility] Influenza Virus 2021-05-27 Completed [facility] Vaccine (3+ yrs) 00:00:00 [facility] Influenza Virus 2021-05-27 Completed [facility] Vaccine (3+ yrs) 00:00:00 [facility] Influenza Virus 2021-05-27 Completed [facility] Vaccine (3+ yrs) 00:00:00 [facility] Influenza Virus 2021-05-27 Completed [facility] Vaccine (3+ yrs) 00:00:00 [facility] Influenza Virus 2021-05-27 Completed [facility] Vaccine (3+ yrs) 00:00:00 [facility] Influenza Virus 2021-05-27 Completed [facility] Vaccine (3+ yrs) 00:00:00 [facility] Influenza Virus 2021-05-27 Completed [facility] Vaccine (3+ yrs) 00:00:00 [facility] Influenza Virus 2021-05-27 Completed [facility] Vaccine (3+ yrs) 00:00:00 [facility] Influenza Virus 2021-05-27 Completed [facility] Vaccine (3+ yrs) 00:00:00 [facility] Influenza Virus 2021-05-27 Completed [facility] Vaccine (3+ yrs) 00:00:00 [facility] Influenza Virus 2021-05-27 Completed [facility] Vaccine (3+ yrs) 00:00:00 [facility] Influenza Virus 2021-05-27 Completed [facility] Vaccine (3+ yrs) 00:00:00 [facility] Influenza Virus 2021-05-27 Completed [facility] Vaccine (3+ yrs) 00:00:00 [facility] Influenza Virus 2021-05-27 Completed [facility] Vaccine (3+ yrs) 00:00:00 [facility] Influenza Virus 2021-05-27 Completed [facility] Vaccine (3+ yrs) 00:00:00 [facility] Influenza Virus 2021-05-27 Completed [facility] Vaccine (3+ yrs) 00:00:00 [facility] Influenza Virus 2021-05-27 Completed [facility] Vaccine (3+ yrs) 00:00:00 [facility] Influenza Virus 2021-05-27 Completed [facility] Vaccine (3+ yrs) 00:00:00 [facility] Influenza Virus 2021-05-27 Completed [facility] Vaccine (3+ yrs) 00:00:00 [facility] Influenza Virus 2021-05-27 Completed [facility] Vaccine (3+ yrs) 00:00:00 [facility] Influenza Virus 2021-05-27 Completed [facility] Vaccine (3+ yrs) 00:00:00 [facility] Influenza Virus 2021-05-27 Completed [facility] Vaccine (3+ yrs) 00:00:00 [facility] Influenza Virus 2021-05-27 Completed [facility] Vaccine (3+ yrs) 00:00:00 [facility] Influenza Virus 2021-05-27 Completed [facility] Vaccine (3+ yrs) 00:00:00 [facility] Influenza Virus 2021-05-27 Completed [facility] Vaccine (3+ yrs) 00:00:00 [facility] Influenza Virus 2021-05-27 Completed [facility] Vaccine (3+ yrs) 00:00:00 [facility] Influenza Virus 2021-05-27 Completed [facility] Vaccine (3+ yrs) 00:00:00 [facility] Influenza Virus 2021-05-27 Completed [facility] Vaccine (3+ yrs) 00:00:00 [facility] Influenza Virus 2021-05-27 Completed [facility] Vaccine (3+ yrs) 00:00:00 [facility] Influenza Virus 2021-05-27 Completed [facility] Vaccine (3+ yrs) 00:00:00 [facility] Influenza Virus 2021-05-27 Completed [facility] Vaccine (3+ yrs) 00:00:00 [facility] Influenza Virus 2021-05-27 Completed [facility] Vaccine (3+ yrs) 00:00:00 [facility] Influenza Virus 2021-05-27 Completed [facility] Vaccine (3+ yrs) 00:00:00 [facility] Influenza Virus 2021-05-27 Completed [facility] Vaccine (3+ yrs) 00:00:00 [facility] Influenza Virus 2021-05-27 Completed [facility] Vaccine (3+ yrs) 00:00:00 [facility] Influenza Virus 2021-05-27 Completed [facility] Vaccine (3+ yrs) 00:00:00 [facility] Influenza Virus 2021-05-27 Completed [facility] Vaccine (3+ yrs) 00:00:00 [facility] Influenza Virus 2021-05-27 Completed [facility] Vaccine (3+ yrs) 00:00:00 [facility] Influenza Virus 2021-05-27 Completed [facility] Vaccine (3+ yrs) 00:00:00 [facility] Influenza Virus 2021-05-27 Completed [facility] Vaccine (3+ yrs) 00:00:00 [facility] Influenza Virus 2021-05-27 Completed [facility] Vaccine (3+ yrs) 00:00:00 [facility] Influenza Virus 2021-05-27 Completed [facility] Vaccine (3+ yrs) 00:00:00 [facility] Influenza Virus 2021-05-27 Completed [facility] Vaccine (3+ yrs) 00:00:00 [facility] Influenza Virus 2021-05-27 Completed [facility] Vaccine (3+ yrs) 00:00:00 [facility] SARS-COV-2 COVID-19 2020-12-13 Completed [facility] PFIZER VACCINE 00:00:00 [facility] SARS-COV-2 COVID-19 2020-12-13 Completed [facility] PFIZER VACCINE 00:00:00 [facility] SARS-COV-2 COVID-19 2020-12-13 Completed [facility] PFIZER VACCINE 00:00:00 [facility] SARS-COV-2 COVID-19 2020-12-13 Completed [facility] PFIZER VACCINE 00:00:00 [facility] SARS-COV-2 COVID-19 2020-12-13 Completed [facility] PFIZER VACCINE 00:00:00 [facility] SARS-COV-2 COVID-19 2020-12-13 Completed [facility] PFIZER VACCINE 00:00:00 [facility] SARS-COV-2 COVID-19 2020-12-13 Completed [facility] PFIZER VACCINE 00:00:00 [facility] SARS-COV-2 COVID-19 2020-12-13 Completed [facility] PFIZER VACCINE 00:00:00 [facility] SARS-COV-2 COVID-19 2020-12-13 Completed [facility] PFIZER VACCINE 00:00:00 [facility] SARS-COV-2 COVID-19 2020-12-13 Completed [facility] PFIZER VACCINE 00:00:00 [facility] SARS-COV-2 COVID-19 2020-12-13 Completed [facility] PFIZER VACCINE 00:00:00 [facility] SARS-COV-2 COVID-19 2020-12-13 Completed [facility] PFIZER VACCINE 00:00:00 [facility] SARS-COV-2 COVID-19 2020-12-13 Completed [facility] PFIZER VACCINE 00:00:00 [facility] SARS-COV-2 COVID-19 2020-12-13 Completed [facility] PFIZER VACCINE 00:00:00 [facility] SARS-COV-2 COVID-19 2020-12-13 Completed [facility] PFIZER VACCINE 00:00:00 [facility] SARS-COV-2 COVID-19 2020-12-13 Completed [facility] PFIZER VACCINE 00:00:00 [facility] SARS-COV-2 COVID-19 2020-12-13 Completed [facility] PFIZER VACCINE 00:00:00 [facility] SARS-COV-2 COVID-19 2020-12-13 Completed [facility] PFIZER VACCINE 00:00:00 [facility] SARS-COV-2 COVID-19 2020-12-13 Completed [facility] PFIZER VACCINE 00:00:00 [facility] SARS-COV-2 COVID-19 2020-12-13 Completed [facility] PFIZER VACCINE 00:00:00 [facility] SARS-COV-2 COVID-19 2020-12-13 Completed [facility] PFIZER VACCINE 00:00:00 [facility] SARS-COV-2 COVID-19 2020-12-13 Completed [facility] PFIZER VACCINE 00:00:00 [facility] SARS-COV-2 COVID-19 2020-12-13 Completed [facility] PFIZER VACCINE 00:00:00 [facility] SARS-COV-2 COVID-19 2020-12-13 Completed [facility] PFIZER VACCINE 00:00:00 [facility] SARS-COV-2 COVID-19 2020-12-13 Completed [facility] PFIZER VACCINE 00:00:00 [facility] SARS-COV-2 COVID-19 2020-12-13 Completed [facility] PFIZER VACCINE 00:00:00 [facility] SARS-COV-2 COVID-19 2020-12-13 Completed [facility] PFIZER VACCINE 00:00:00 [facility] SARS-COV-2 COVID-19 2020-12-13 Completed [facility] PFIZER VACCINE 00:00:00 [facility] SARS-COV-2 COVID-19 2020-12-13 Completed [facility] PFIZER VACCINE 00:00:00 [facility] SARS-COV-2 COVID-19 2020-12-13 Completed [facility] PFIZER VACCINE 00:00:00 [facility] SARS-COV-2 COVID-19 2020-12-13 Completed [facility] PFIZER VACCINE 00:00:00 [facility] SARS-COV-2 COVID-19 2020-12-13 Completed [facility] PFIZER VACCINE 00:00:00 [facility] SARS-COV-2 COVID-19 2020-12-13 Completed [facility] PFIZER VACCINE 00:00:00 [facility] SARS-COV-2 COVID-19 2020-12-13 Completed [facility] PFIZER VACCINE 00:00:00 [facility] SARS-COV-2 COVID-19 2020-12-13 Completed [facility] PFIZER VACCINE 00:00:00 [facility] SARS-COV-2 COVID-19 2020-12-13 Completed [facility] PFIZER VACCINE 00:00:00 [facility] SARS-COV-2 COVID-19 2020-12-13 Completed [facility] PFIZER VACCINE 00:00:00 [facility] SARS-COV-2 COVID-19 2020-12-13 Completed [facility] PFIZER VACCINE 00:00:00 [facility] SARS-COV-2 COVID-19 2020-12-13 Completed [facility] PFIZER VACCINE 00:00:00 [facility] SARS-COV-2 COVID-19 2020-12-13 Completed [facility] PFIZER VACCINE 00:00:00 [facility] SARS-COV-2 COVID-19 2020-12-13 Completed [facility] PFIZER VACCINE 00:00:00 [facility] SARS-COV-2 COVID-19 2020-12-13 Completed [facility] PFIZER VACCINE 00:00:00 [facility] SARS-COV-2 COVID-19 2020-12-13 Completed [facility] PFIZER VACCINE 00:00:00 [facility] SARS-COV-2 COVID-19 2020-12-13 Completed [facility] PFIZER VACCINE 00:00:00 [facility] SARS-COV-2 COVID-19 2020-12-13 Completed [facility] PFIZER VACCINE 00:00:00 [facility] SARS-COV-2 COVID-19 2020-12-13 Completed [facility] PFIZER VACCINE 00:00:00 [facility] SARS-COV-2 COVID-19 2020-12-13 Completed [facility] PFIZER VACCINE 00:00:00 [facility] SARS-COV-2 COVID-19 2020-12-13 Completed [facility] PFIZER VACCINE 00:00:00 [facility] SARS-COV-2 COVID-19 2020-12-13 Completed [facility] PFIZER VACCINE 00:00:00 [facility] SARS-COV-2 COVID-19 2020-11-22 Completed [facility] PFIZER VACCINE 00:00:00 [facility] SARS-COV-2 COVID-19 2020-11-22 Completed [facility] PFIZER VACCINE 00:00:00 [facility] SARS-COV-2 COVID-19 2020-11-22 Completed [facility] PFIZER VACCINE 00:00:00 [facility] SARS-COV-2 COVID-19 2020-11-22 Completed [facility] PFIZER VACCINE 00:00:00 [facility] SARS-COV-2 COVID-19 2020-11-22 Completed [facility] PFIZER VACCINE 00:00:00 [facility] SARS-COV-2 COVID-19 2020-11-22 Completed [facility] PFIZER VACCINE 00:00:00 [facility] SARS-COV-2 COVID-19 2020-11-22 Completed [facility] PFIZER VACCINE 00:00:00 [facility] SARS-COV-2 COVID-19 2020-11-22 Completed [facility] PFIZER VACCINE 00:00:00 [facility] SARS-COV-2 COVID-19 2020-11-22 Completed [facility] PFIZER VACCINE 00:00:00 [facility] SARS-COV-2 COVID-19 2020-11-22 Completed [facility] PFIZER VACCINE 00:00:00 [facility] SARS-COV-2 COVID-19 2020-11-22 Completed [facility] PFIZER VACCINE 00:00:00 [facility] SARS-COV-2 COVID-19 2020-11-22 Completed [facility] PFIZER VACCINE 00:00:00 [facility] SARS-COV-2 COVID-19 2020-11-22 Completed [facility] PFIZER VACCINE 00:00:00 [facility] SARS-COV-2 COVID-19 2020-11-22 Completed [facility] PFIZER VACCINE 00:00:00 [facility] SARS-COV-2 COVID-19 2020-11-22 Completed [facility] PFIZER VACCINE 00:00:00 [facility] SARS-COV-2 COVID-19 2020-11-22 Completed [facility] PFIZER VACCINE 00:00:00 [facility] SARS-COV-2 COVID-19 2020-11-22 Completed [facility] PFIZER VACCINE 00:00:00 [facility] SARS-COV-2 COVID-19 2020-11-22 Completed [facility] PFIZER VACCINE 00:00:00 [facility] SARS-COV-2 COVID-19 2020-11-22 Completed [facility] PFIZER VACCINE 00:00:00 [facility] SARS-COV-2 COVID-19 2020-11-22 Completed [facility] PFIZER VACCINE 00:00:00 [facility] SARS-COV-2 COVID-19 2020-11-22 Completed [facility] PFIZER VACCINE 00:00:00 [facility] SARS-COV-2 COVID-19 2020-11-22 Completed [facility] PFIZER VACCINE 00:00:00 [facility] SARS-COV-2 COVID-19 2020-11-22 Completed [facility] of PFIZER VACCINE 00:00:00 [facility] SARS-COV-2 COVID-19 2020-11-22 Completed [facility] PFIZER VACCINE 00:00:00 [facility] SARS-COV-2 COVID-19 2020-11-22 Completed [facility] PFIZER VACCINE 00:00:00 [facility] SARS-COV-2 COVID-19 2020-11-22 Completed [facility] PFIZER VACCINE 00:00:00 [facility] SARS-COV-2 COVID-19 2020-11-22 Completed [facility] PFIZER VACCINE 00:00:00 [facility] SARS-COV-2 COVID-19 2020-11-22 Completed [facility] PFIZER VACCINE 00:00:00 [facility] SARS-COV-2 COVID-19 2020-11-22 Completed [facility] PFIZER VACCINE 00:00:00 [facility] SARS-COV-2 COVID-19 2020-11-22 Completed [facility] PFIZER VACCINE 00:00:00 [facility] SARS-COV-2 COVID-19 2020-11-22 Completed [facility] PFIZER VACCINE 00:00:00 [facility] SARS-COV-2 COVID-19 2020-11-22 Completed [facility] PFIZER VACCINE 00:00:00 [facility] SARS-COV-2 COVID-19 2020-11-22 Completed [facility] PFIZER VACCINE 00:00:00 [facility] SARS-COV-2 COVID-19 2020-11-22 Completed [facility] PFIZER VACCINE 00:00:00 [facility] SARS-COV-2 COVID-19 2020-11-22 Completed [facility] PFIZER VACCINE 00:00:00 [facility] SARS-COV-2 COVID-19 2020-11-22 Completed [facility] PFIZER VACCINE 00:00:00 [facility] SARS-COV-2 COVID-19 2020-11-22 Completed [facility] PFIZER VACCINE 00:00:00 [facility] SARS-COV-2 COVID-19 2020-11-22 Completed [facility] PFIZER VACCINE 00:00:00 [facility] SARS-COV-2 COVID-19 2020-11-22 Completed [facility] PFIZER VACCINE 00:00:00 [facility] SARS-COV-2 COVID-19 2020-11-22 Completed [facility] PFIZER VACCINE 00:00:00 [facility] SARS-COV-2 COVID-19 2020-11-22 Completed [facility] PFIZER VACCINE 00:00:00 [facility] SARS-COV-2 COVID-19 2020-11-22 Completed [facility] PFIZER VACCINE 00:00:00 [facility] SARS-COV-2 COVID-19 2020-11-22 Completed [facility] of PFIZER VACCINE 00:00:00 [facility] SARS-COV-2 COVID-19 2020-11-22 Completed [facility] PFIZER VACCINE 00:00:00 [facility] SARS-COV-2 COVID-19 2020-11-22 Completed [facility] of PFIZER VACCINE 00:00:00 [facility] SARS-COV-2 COVID-19 2020-11-22 Completed [facility] of PFIZER VACCINE 00:00:00 [facility] SARS-COV-2 COVID-19 2020-11-22 Completed [facility] PFIZER VACCINE 00:00:00 [facility] SARS-COV-2 COVID-19 2020-11-22 Completed [facility] PFIZER VACCINE 00:00:00 [facility] SARS-COV-2 COVID-19 2020-11-22 Completed [facility] PFIZER VACCINE 00:00:00 [facility] Influenza Virus 2020-05-27 Completed [facility] Vaccine [facility] 00:00:00 [facility] Preserv and ABX Branc h [...] [facility] Vaccine Recomb [facility] 00:00:00 [facility] Preserv and ABX Branc h [...] 2019-08-10 Completed [facility] f Polysaccharide, 00:00:00 [facility] PPSV23 (PNEUMOVAX) [facility] TDAP (ADACEL) VACCINE 2019-08-10 Completed [facility] versity of 00:00:00 [facility] TDAP 2019-08-10 Completed [facility] of 00:00:00 [facility] Pneumococcal 2019-08-10 Completed [facility] f Polysaccharide, 00:00:00 [facility] PPSV23 (PNEUMOVAX) [facility] TDAP (ADACEL) VACCINE 2019-08-10 Completed [facility] vers[facility] of 00:00:00 [facility] TDAP 2019-08-10 Completed [facility] of 00:00:00 [facility] Pneumococcal 2019-08-10 Completed [facility] f Polysaccharide, 00:00:00 [facility] PPSV23 (PNEUMOVAX) [facility] TDAP (ADACEL) VACCINE 2019-08-10 Completed [facility] vers[facility] of 00:00:00 [facility] TDAP 2019-08-10 Completed [facility] of 00:00:00 [facility] Pneumococcal 2019-08-10 Completed [facility] f Polysaccharide, 00:00:00 [facility] PPSV23 (PNEUMOVAX) [facility] TDAP (ADACEL) VACCINE 2019-08-10 Completed [facility] of 00:00:00 [facility] TDAP 2019-08-10 Completed [facility] of 00:00:00 [facility] Pneumococcal 2019-08-10 Completed [facility] Polysaccharide, 00:00:00 [facility] PPSV23 (PNEUMOVAX) [facility] TDAP (ADACEL) VACCINE 2019-08-10 Completed [facility] versity of 00:00:00 [facility] TDAP 2019-08-10 Completed [facility] 00:00:00 [facility] Pneumococcal 2019-08-10 Completed [facility] Polysaccharide, 00:00:00 [place] [facility] PPSV23 (PNEUMOVAX) Branch TDAP (ADACEL) VACCINE 2019-08-10 Completed [facility] vers[facility] of 00:00:00 [facility] TDAP 2019-08-10 Completed [facility] of 00:00:00 [facility] Pneumococcal 2019-08-10 Completed [facility] Polysaccharide, 00:00:00 [place] [facility] PPSV23 (PNEUMOVAX) Branch TDAP (ADACEL) VACCINE 2019-08-10 Completed [facility] vers[facility] 00:00:00 [facility] TDAP 2019-08-10 Completed [facility] of 00:00:00 [facility] Pneumococcal 2019-08-10 Completed [facility] Polysaccharide, 00:00:00 [place] [facility] PPSV23 (PNEUMOVAX) Branch TDAP (ADACEL) VACCINE 2019-08-10 Completed [facility] vers[facility] of 00:00:00 [facility] TDAP 2019-08-10 Completed [facility] of 00:00:00 [facility] Pneumococcal 2019-08-10 Completed [facility] f Polysaccharide, 00:00:00 [place] [facility] PPSV23 (PNEUMOVAX) Branch TDAP (ADACEL) VACCINE 2019-08-10 Completed [facility] versity of 00:00:00 [facility] TDAP 2019-08-10 Completed [facility] of 00:00:00 [facility] Pneumococcal 2019-08-10 Completed [facility] f Polysaccharide, 00:00:00 [place] [facility] PPSV23 (PNEUMOVAX) Branch TDAP (ADACEL) VACCINE 2019-08-10 Completed [facility] vers[facility] of 00:00:00 [facility] TDAP 2019-08-10 Completed [facility] of 00:00:00 [facility] Pneumococcal 2019-08-10 Completed [facility] f Polysaccharide, 00:00:00 [place] [facility] PPSV23 (PNEUMOVAX) Branch TDAP (ADACEL) VACCINE 2019-08-10 Completed [facility] 00:00:00 [facility] TDAP 2019-08-10 Completed [facility] 00:00:00 [facility] Pneumococcal 2019-08-10 Completed [facility] f Polysaccharide, 00:00:00 [place] [facility] PPSV23 (PNEUMOVAX) Branch TDAP (ADACEL) VACCINE 2019-08-10 Completed [facility] 00:00:00 [facility] TDAP 2019-08-10 Completed [facility] 00:00:00 [facility] Pneumococcal 2019-08-10 Completed [facility] Polysaccharide, 00:00:00 [place] [facility] PPSV23 (PNEUMOVAX) Branch TDAP (ADACEL) VACCINE 2019-08-10 Completed [facility] 00:00:00 [facility] TDAP 2019-08-10 Completed [facility] 00:00:00 [facility] Pneumococcal 2019-08-10 Completed [facility] f Polysaccharide, 00:00:00 [place] [facility] PPSV23 (PNEUMOVAX) Branch TDAP (ADACEL) VACCINE 2019-08-10 Completed [facility] 00:00:00 [facility] TDAP 2019-08-10 Completed [facility] 00:00:00 [facility] Pneumococcal 2019-08-10 Completed [facility] o [facility] Polysaccharide, 00:00:00 [place] [facility] PPSV23 (PNEUMOVAX) Branch TDAP (ADACEL) VACCINE 2019-08-10 Completed [facility] vers[facility] of 00:00:00 [facility] TDAP 2019-08-10 Completed [facility] of 00:00:00 [facility] Pneumococcal 2019-08-10 Completed [facility] o f Polysaccharide, 00:00:00 [place] [facility] PPSV23 (PNEUMOVAX) Branch TDAP (ADACEL) VACCINE 2019-08-10 Completed [facility] vers[facility] 00:00:00 [facility] TDAP 2019-08-10 Completed [facility] of 00:00:00 [facility] Pneumococcal 2019-08-10 Completed [facility] o f Polysaccharide, 00:00:00 [place] [facility] PPSV23 (PNEUMOVAX) Branch TDAP (ADACEL) VACCINE 2019-08-10 Completed [facility] vers[facility] of 00:00:00 [facility] TDAP 2019-08-10 Completed [facility] of 00:00:00 [facility] Pneumococcal 2019-08-10 Completed [facility] o f Polysaccharide, 00:00:00 [place] [facility] PPSV23 (PNEUMOVAX) Branch TDAP (ADACEL) VACCINE 2019-08-10 Completed [facility] vers[facility] 00:00:00 [facility] TDAP 2019-08-10 Completed [facility] of 00:00:00 [facility] Pneumococcal 2019-08-10 Completed [facility] o f Polysaccharide, 00:00:00 [place] [facility] PPSV23 (PNEUMOVAX) Branch TDAP (ADACEL) VACCINE 2019-08-10 Completed [facility] 00:00:00 [facility] TDAP 2019-08-10 Completed [facility] 00:00:00 [facility] Pneumococcal 2019-08-10 Completed [facility] Polysaccharide, 00:00:00 [place] [facility] PPSV23 (PNEUMOVAX) Branch TDAP (ADACEL) VACCINE 2019-08-10 Completed [facility] vers[facility] 00:00:00 [facility] TDAP 2019-08-10 Completed [facility] of 00:00:00 [facility] Pneumococcal 2019-08-10 Completed [facility] o f Polysaccharide, 00:00:00 [place] [facility] PPSV23 (PNEUMOVAX) Branch TDAP (ADACEL) VACCINE 2019-08-10 Completed [facility] vers[facility] 00:00:00 [facility] TDAP 2019-08-10 Completed [facility] of 00:00:00 [facility] Pneumococcal 2019-08-10 Completed [facility] o f Polysaccharide, 00:00:00 [place] [facility] PPSV23 (PNEUMOVAX) Branch TDAP (ADACEL) VACCINE 2019-08-10 Completed [facility] vers[facility] of 00:00:00 [facility] TDAP 2019-08-10 Completed [facility] of 00:00:00 [facility] Pneumococcal 2019-08-10 Completed [facility] o f Polysaccharide, 00:00:00 [place] [facility] PPSV23 (PNEUMOVAX) Branch TDAP (ADACEL) VACCINE 2019-08-10 Completed [facility] vers[facility] of 00:00:00 [facility] TDAP 2019-08-10 Completed [facility] of 00:00:00 [facility] Pneumococcal 2019-08-10 Completed [facility] o f Polysaccharide, 00:00:00 [place] [facility] PPSV23 (PNEUMOVAX) Branch TDAP (ADACEL) VACCINE 2019-08-10 Completed [facility] vers[facility] of 00:00:00 [facility] TDAP 2019-08-10 Completed [facility] of 00:00:00 [facility] Pneumococcal 2019-08-10 Completed [facility] o [facility] Polysaccharide, 00:00:00 [place] [facility] PPSV23 (PNEUMOVAX) Branch TDAP (ADACEL) VACCINE 2019-08-10 Completed [facility] vers[facility] of 00:00:00 [facility] TDAP 2019-08-10 Completed [facility] of 00:00:00 [facility] Pneumococcal 2019-08-10 Completed [facility] o [facility] Polysaccharide, 00:00:00 [place] [facility] PPSV23 (PNEUMOVAX) Branch TDAP (ADACEL) VACCINE 2019-08-10 Completed [facility] 00:00:00 [facility] TDAP 2019-08-10 Completed [facility] of 00:00:00 [facility] Pneumococcal 2019-08-10 Completed [facility] o f Polysaccharide, 00:00:00 [place] [facility] PPSV23 (PNEUMOVAX) Branch TDAP (ADACEL) VACCINE 2019-08-10 Completed [facility] 00:00:00 [facility] TDAP 2019-08-10 Completed [facility] of 00:00:00 [facility] Pneumococcal 2019-08-10 Completed [facility] o f Polysaccharide, 00:00:00 [place] [facility] PPSV23 (PNEUMOVAX) Branch TDAP (ADACEL) VACCINE 2019-08-10 Completed [facility] vers[facility] of 00:00:00 [facility] TDAP 2019-08-10 Completed [facility] of 00:00:00 [facility] Pneumococcal 2019-08-10 Completed [facility] o f Polysaccharide, 00:00:00 [place] [facility] PPSV23 (PNEUMOVAX) Branch TDAP (ADACEL) VACCINE 2019-08-10 Completed [facility] vers[facility] of 00:00:00 [facility] TDAP 2019-08-10 Completed [facility] of 00:00:00 [facility] Pneumococcal 2019-08-10 Completed [facility] o f Polysaccharide, 00:00:00 [place] [facility] PPSV23 (PNEUMOVAX) Branch TDAP (ADACEL) VACCINE 2019-08-10 Completed [facility] vers[facility] of 00:00:00 [facility] TDAP 2019-08-10 Completed [facility] of 00:00:00 [facility] Pneumococcal 2019-08-10 Completed [facility] o f Polysaccharide, 00:00:00 [place] [facility] PPSV23 (PNEUMOVAX) Branch TDAP (ADACEL) VACCINE 2019-08-10 Completed [facility] vers[facility] of 00:00:00 [facility] TDAP 2019-08-10 Completed [facility] of 00:00:00 [facility] Pneumococcal 2019-08-10 Completed [facility] o f Polysaccharide, 00:00:00 [place] [facility] PPSV23 (PNEUMOVAX) Branch TDAP (ADACEL) VACCINE 2019-08-10 Completed [facility] vers[facility] of 00:00:00 [facility] TDAP 2019-08-10 Completed [facility] of 00:00:00 [facility] Pneumococcal 2019-08-10 Completed [facility] o f Polysaccharide, 00:00:00 [place] [facility] PPSV23 (PNEUMOVAX) Branch TDAP (ADACEL) VACCINE 2019-08-10 Completed [facility] vers[facility] 00:00:00 [facility] TDAP 2019-08-10 Completed [facility] of 00:00:00 [facility] Pneumococcal 2019-08-10 Completed [facility] o f Polysaccharide, 00:00:00 [place] [facility] PPSV23 (PNEUMOVAX) Branch TDAP (ADACEL) VACCINE 2019-08-10 Completed [facility] vers[facility] of 00:00:00 [facility] TDAP 2019-08-10 Completed [facility] of 00:00:00 [facility] Pneumococcal 2019-08-10 Completed [facility] o f Polysaccharide, 00:00:00 [place] [facility] PPSV23 (PNEUMOVAX) Branch TDAP (ADACEL) VACCINE 2019-08-10 Completed Uni versity of 00:00:00 [facility] TDAP 2019-08-10 Completed University of 00:00:00 [facility] Pneumococcal 2019-08-10 Completed [facility] o f Polysaccharide, 00:00:00 [place] [facility] PPSV23 (PNEUMOVAX) Branch TDAP (ADACEL) VACCINE 2019-08-10 Completed Uni versity of 00:00:00 [facility] TDAP 2019-08-10 Completed [facility] of 00:00:00 [facility] Pneumococcal 2019-08-10 Completed [facility] o f Polysaccharide, 00:00:00 [place] [facility] PPSV23 (PNEUMOVAX) Branch TDAP (ADACEL) VACCINE 2019-08-10 Completed [facility] versity of 00:00:00 [facility] TDAP 2019-08-10 Completed [facility] of 00:00:00 [facility] Pneumococcal 2019-08-10 Completed [facility] o f Polysaccharide, 00:00:00 [place] [facility] PPSV23 (PNEUMOVAX) Branch TDAP (ADACEL) VACCINE 2019-08-10 Completed [facility] versity of 00:00:00 [facility] TDAP 2019-08-10 Completed [facility] of 00:00:00 [facility] Pneumococcal 2019-08-10 Completed [facility] o f Polysaccharide, 00:00:00 [place] [facility] PPSV23 (PNEUMOVAX) Branch TDAP (ADACEL) VACCINE 2019-08-10 Completed [facility] versity of 00:00:00 [facility] TDAP 2019-08-10 Completed [facility] of 00:00:00 [facility] Pneumococcal 2019-08-10 Completed [facility] o f Polysaccharide, 00:00:00 [place] [facility] PPSV23 (PNEUMOVAX) Branch TDAP (ADACEL) VACCINE 2019-08-10 Completed [facility] vers[facility] of 00:00:00 [facility] TDAP 2019-08-10 Completed [facility] of 00:00:00 [facility] Pneumococcal 2019-08-10 Completed [facility] o f Polysaccharide, 00:00:00 [place] [facility] PPSV23 (PNEUMOVAX) Branch TDAP (ADACEL) VACCINE 2019-08-10 Completed [facility] vers[facility] of 00:00:00 [facility] TDAP 2019-08-10 Completed [facility] of 00:00:00 [facility] Pneumococcal 2019-08-10 Completed [facility] o f Polysaccharide, 00:00:00 [place] [facility] PPSV23 (PNEUMOVAX) Branch TDAP (ADACEL) VACCINE 2019-08-10 Completed [facility] versity of 00:00:00 [facility] TDAP 2019-08-10 Completed [facility] of 00:00:00 [facility] Pneumococcal 2019-08-10 Completed [facility] o f Polysaccharide, 00:00:00 [place] [facility] PPSV23 (PNEUMOVAX) Branch TDAP (ADACEL) VACCINE 2019-08-10 Completed [facility] versity of 00:00:00 [facility] TDAP 2019-08-10 Completed [facility] of 00:00:00 [facility] Pneumococcal 2019-08-10 Completed [facility] o f Polysaccharide, 00:00:00 [place] [facility] PPSV23 (PNEUMOVAX) Branch TDAP (ADACEL) VACCINE 2019-08-10 Completed [facility] vers[facility] of 00:00:00 [facility] TDAP 2019-08-10 Completed [facility] of 00:00:00 [facility] Pneumococcal 2019-08-10 Completed [facility] o f Polysaccharide, 00:00:00 [place] [facility] PPSV23 (PNEUMOVAX) Branch TDAP (ADACEL) VACCINE 2019-08-10 Completed [facility] versity of 00:00:00 [facility] TDAP 2019-08-10 Completed [facility] of 00:00:00 [facility] Pneumococcal 2019-08-10 Completed [facility] o f Polysaccharide, 00:00:00 [place] [facility] PPSV23 (PNEUMOVAX) Branch TDAP (ADACEL) VACCINE 2019-08-10 Completed [facility] versity of 00:00:00 [facility] TDAP 2019-08-10 Completed [facility] of 00:00:00 [facility] Pneumococcal 2019-08-10 Completed [facility] o f Polysaccharide, 00:00:00 [facility] ical PPSV23 (PNEUMOVAX) Branch TDAP (ADACEL) VACCINE 2019-08-10 Completed Uni versity of 00:00:00 [facility] TDAP 2019-08-10 Completed University of 00:00:00 [facility] Pneumococcal 2019-08-10 Completed [facility] o f Polysaccharide, 00:00:00 [facility] ical PPSV23 (PNEUMOVAX) Branch TDAP (ADACEL) VACCINE 2019-08-10 Completed Uni versity of 00:00:00 [facility] TDAP 2019-08-10 Completed [facility] of 00:00:00 [facility] Pneumococcal 2019-08-10 Completed [facility] o f Polysaccharide, 00:00:00 [facility] ical PPSV23 (PNEUMOVAX) Branch TDAP (ADACEL) VACCINE 2019-08-10 Completed Uni versity of 00:00:00 [facility] TDAP 2019-08-10 Completed University of 00:00:00 [facility] Influenza Virus 2019-07-04 Completed Universit y of Vaccine 00:00:00 [facility] Influenza Virus 2019-07-04 Completed Universit y of Vaccine Recomb Quad 00:00:00 [facility], Preserv and ABX Branc h Free 18-64 YRS Influenza Virus 2019-07-04 Completed Universit y of Vaccine 00:00:00 [facility] Influenza Virus 2019-07-04 Completed Universit y of Vaccine Recomb Quad 00:00:00 [facility], Preserv and ABX Branc h Free 18-64 YRS Influenza Virus 2019-07-04 Completed Universit y of Vaccine 00:00:00 [facility] Influenza Virus 2019-07-04 Completed [facility]it y of Vaccine Recomb Quad 00:00:00 [facility], Preserv and ABX Branc h Free 18-64 YRS Influenza Virus 2019-07-04 Completed Universit y of Vaccine 00:00:00 [facility] Influenza Virus 2019-07-04 Completed [facility]it y of Vaccine Recomb Quad 00:00:00 [facility], Preserv and ABX Branc h Free 18-64 YRS Influenza Virus 2019-07-04 Completed [facility]it y of Vaccine 00:00:00 [facility] Influenza Virus 2019-07-04 Completed [facility]it y of Vaccine Recomb Quad 00:00:00 [facility], Preserv and ABX Branc h Free 18-64 YRS Influenza Virus 2019-07-04 Completed Universit y of Vaccine 00:00:00 [facility] Influenza Virus 2019-07-04 Completed Universit y of Vaccine Recomb Quad 00:00:00 [facility], Preserv and ABX Branc h Free 18-64 YRS Influenza Virus 2019-07-04 Completed Universit y of Vaccine 00:00:00 [facility] Influenza Virus 2019-07-04 Completed [facility]it y of Vaccine Recomb Quad 00:00:00 [facility], Preserv and ABX Branc h Free 18-64 YRS Influenza Virus 2019-07-04 Completed Universit y of Vaccine 00:00:00 [facility] Influenza Virus 2019-07-04 Completed [facility]it y of Vaccine Recomb Quad 00:00:00 [facility], Preserv and ABX Branc h Free 18-64 YRS Influenza Virus 2019-07-04 Completed Universit y of Vaccine 00:00:00 [facility] Influenza Virus 2019-07-04 Completed [facility]it y of Vaccine Recomb Quad 00:00:00 [facility], Preserv and ABX Branc h Free 18-64 YRS Influenza Virus 2019-07-04 Completed [facility]it y of Vaccine 00:00:00 [facility] Influenza Virus 2019-07-04 Completed [facility]it y of Vaccine Recomb Quad 00:00:00 [facility], Preserv and ABX Branc h Free 18-64 YRS Influenza Virus 2019-07-04 Completed [facility]it y of Vaccine 00:00:00 [facility] Influenza Virus 2019-07-04 Completed [facility]it y of Vaccine Recomb Quad 00:00:00 [facility], Preserv and ABX Branc h Free 18-64 YRS Influenza Virus 2019-07-04 Completed [facility]it y of Vaccine 00:00:00 [facility] Influenza Virus 2019-07-04 Completed [facility] y of Vaccine Recomb Quad 00:00:00 [facility], Preserv and ABX Branc h Free 18-64 YRS Influenza Virus 2019-07-04 Completed [facility]it y of Vaccine 00:00:00 [facility] Influenza Virus 2019-07-04 Completed [facility]it y of Vaccine Recomb Quad 00:00:00 [facility], Preserv and ABX Branc h Free 18-64 YRS Influenza Virus 2019-07-04 Completed [facility]it y of Vaccine 00:00:00 [facility] Influenza Virus 2019-07-04 Completed [facility]it y of Vaccine Recomb Quad 00:00:00 [facility], Preserv and ABX Branc h Free 18-64 YRS Influenza Virus 2019-07-04 Completed [facility]it y of Vaccine 00:00:00 [facility] Influenza Virus 2019-07-04 Completed [facility]it y of Vaccine Recomb Quad 00:00:00 [facility], Preserv and ABX Branc h Free 18-64 YRS Influenza Virus 2019-07-04 Completed [facility]it y of Vaccine 00:00:00 [facility] Influenza Virus 2019-07-04 Completed [facility]it y of Vaccine Recomb Quad 00:00:00 [facility], Preserv and ABX Branc h Free 18-64 YRS Influenza Virus 2019-07-04 Completed [facility]it y of Vaccine 00:00:00 [facility] Influenza Virus 2019-07-04 Completed [facility]it y of Vaccine Recomb Quad 00:00:00 [facility], Preserv and ABX Branc h Free 18-64 YRS Influenza Virus 2019-07-04 Completed [facility]it y of Vaccine 00:00:00 [facility] Influenza Virus 2019-07-04 Completed [facility]it y of Vaccine Recomb Quad 00:00:00 [facility], Preserv and ABX Branc h Free 18-64 YRS Influenza Virus 2019-07-04 Completed [facility]it y of Vaccine 00:00:00 [facility] Influenza Virus 2019-07-04 Completed [facility]it y of Vaccine Recomb Quad 00:00:00 [facility], Preserv and ABX Branc h Free 18-64 YRS Influenza Virus 2019-07-04 Completed [facility]it y of Vaccine 00:00:00 [facility] Influenza Virus 2019-07-04 Completed [facility]it y of Vaccine Recomb Quad 00:00:00 [facility], Preserv and ABX Branc h Free 18-64 YRS Influenza Virus 2019-07-04 Completed [facility]it y of Vaccine 00:00:00 [facility] Influenza Virus 2019-07-04 Completed [facility]it y of Vaccine Recomb Quad 00:00:00 [facility], Preserv and ABX Branc h Free 18-64 YRS Influenza Virus 2019-07-04 Completed [facility]it y of Vaccine 00:00:00 [facility] Influenza Virus 2019-07-04 Completed [facility]it y of Vaccine Recomb Quad 00:00:00 [facility], Preserv and ABX Branc h Free 18-64 YRS Influenza Virus 2019-07-04 Completed [facility]it y of Vaccine 00:00:00 [facility] Influenza Virus 2019-07-04 Completed [facility]it y of Vaccine Recomb Quad 00:00:00 [facility], Preserv and ABX Branc h Free 18-64 YRS Influenza Virus 2019-07-04 Completed [facility]it y of Vaccine 00:00:00 [facility] Influenza Virus 2019-07-04 Completed [facility] y of Vaccine Recomb Quad 00:00:00 [facility], Preserv and ABX Branc h Free 18-64 YRS Influenza Virus 2019-07-04 Completed [facility]it y of Vaccine 00:00:00 [facility] Influenza Virus 2019-07-04 Completed [facility]it y of Vaccine Recomb Quad 00:00:00 [facility], Preserv and ABX Branc h Free 18-64 YRS Influenza Virus 2019-07-04 Completed [facility]it y of Vaccine 00:00:00 [facility] Influenza Virus 2019-07-04 Completed [facility] y of Vaccine Recomb Quad 00:00:00 [facility], Preserv and ABX Branc h Free 18-64 YRS Influenza Virus 2019-07-04 Completed [facility]it y of Vaccine 00:00:00 [facility] Influenza Virus 2019-07-04 Completed [facility] y of Vaccine Recomb Quad 00:00:00 [facility], Preserv and ABX Branc h Free 18-64 YRS Influenza Virus 2019-07-04 Completed [facility]it y of Vaccine 00:00:00 [facility] Influenza Virus 2019-07-04 Completed [facility] y of Vaccine Recomb Quad 00:00:00 [facility], Preserv and ABX Branc h Free 18-64 YRS Influenza Virus 2019-07-04 Completed [facility] y of Vaccine 00:00:00 [facility] Influenza Virus 2019-07-04 Completed [facility] y of Vaccine Recomb Quad 00:00:00 [facility], Preserv and ABX Branc h Free 18-64 YRS Influenza Virus 2019-07-04 Completed [facility]it y of Vaccine 00:00:00 [facility] Influenza Virus 2019-07-04 Completed [facility] y of Vaccine Recomb Quad 00:00:00 [facility], Preserv and ABX Branc h Free 18-64 YRS Influenza Virus 2019-07-04 Completed [facility]it y of Vaccine 00:00:00 [facility] Influenza Virus 2019-07-04 Completed [facility] y of Vaccine Recomb Quad 00:00:00 [facility], Preserv and ABX Branc h Free 18-64 YRS Influenza Virus 2019-07-04 Completed [facility]it y of Vaccine 00:00:00 [facility] Influenza Virus 2019-07-04 Completed [facility] y of Vaccine Recomb Quad 00:00:00 [facility], Preserv and ABX Branc h Free 18-64 YRS Influenza Virus 2019-07-04 Completed [facility]it y of Vaccine 00:00:00 [facility] Influenza Virus 2019-07-04 Completed [facility] y of Vaccine Recomb Quad 00:00:00 [facility], Preserv and ABX Branc h Free 18-64 YRS Influenza Virus 2019-07-04 Completed [facility]it y of Vaccine 00:00:00 [facility] Influenza Virus 2019-07-04 Completed [facility] y of Vaccine Recomb Quad 00:00:00 [facility], Preserv and ABX Branc h Free 18-64 YRS Influenza Virus 2019-07-04 Completed [facility]it y of Vaccine 00:00:00 [facility] Influenza Virus 2019-07-04 Completed [facility] y of Vaccine Recomb Quad 00:00:00 [facility], Preserv and ABX Branc h Free 18-64 YRS Influenza Virus 2019-07-04 Completed [facility]it y of Vaccine 00:00:00 [facility] Influenza Virus 2019-07-04 Completed [facility] y of Vaccine Recomb Quad 00:00:00 [facility], Preserv and ABX Branc h Free 18-64 YRS Influenza Virus 2019-07-04 Completed [facility]it y of Vaccine 00:00:00 [facility] Influenza Virus 2019-07-04 Completed [facility] y of Vaccine Recomb Quad 00:00:00 [facility], Preserv and ABX Branc h Free 18-64 YRS Influenza Virus 2019-07-04 Completed [facility]it y of Vaccine 00:00:00 [facility] Influenza Virus 2019-07-04 Completed [facility] y of Vaccine Recomb Quad 00:00:00 [facility], Preserv and ABX Branc h Free 18-64 YRS Influenza Virus 2019-07-04 Completed [facility]it y of Vaccine 00:00:00 [facility] Influenza Virus 2019-07-04 Completed [facility] y of Vaccine Recomb Quad 00:00:00 [facility], Preserv and ABX Branc h Free 18-64 YRS Influenza Virus 2019-07-04 Completed [facility] y of Vaccine 00:00:00 [facility] Influenza Virus 2019-07-04 Completed [facility] y of Vaccine Recomb Quad 00:00:00 [facility], Preserv and ABX Branc h Free 18-64 YRS Influenza Virus 2019-07-04 Completed [facility] y of Vaccine 00:00:00 [facility] Influenza Virus 2019-07-04 Completed [facility] y of Vaccine Recomb Quad 00:00:00 [facility], Preserv and ABX Branc h Free 18-64 YRS Influenza Virus 2019-07-04 Completed [facility]it y of Vaccine 00:00:00 [facility] Influenza Virus 2019-07-04 Completed [facility] y of Vaccine Recomb Quad 00:00:00 [facility], Preserv and ABX Branc h Free 18-64 YRS Influenza Virus 2019-07-04 Completed [facility] y of Vaccine 00:00:00 [facility] Influenza Virus 2019-07-04 Completed [facility] y of Vaccine Recomb Quad 00:00:00 [facility], Preserv and ABX Branc h Free 18-64 YRS Influenza Virus 2019-07-04 Completed [facility] y of Vaccine 00:00:00 [facility] Influenza Virus 2019-07-04 Completed [facility] y of Vaccine Recomb Quad 00:00:00 [facility], Preserv and ABX Branc h Free 18-64 YRS Influenza Virus 2019-07-04 Completed [facility] y of Vaccine 00:00:00 [facility] Influenza Virus 2019-07-04 Completed [facility]it y of Vaccine [facility] 00:00:00 [facility], Preserv and ABX Branc h Free 18-64 YRS Influenza Virus 2019-07-04 Completed [facility]it [facility] of Vaccine 00:00:00 [facility] Influenza Virus 2019-07-04 Completed [facility]it [facility] of Vaccine [facility] 00:00:00 [facility], Preserv and ABX Branc h Free 18-64 YRS Influenza Virus 2019-07-04 Completed [facility] Vaccine 00:00:00 [facility] Influenza Virus 2019-07-04 Completed [facility] of Vaccine [facility] Quad 00:00:00 [facility], Preserv and ABX Branc h Free 18-64 YRS Influenza Virus 2019-07-04 Completed [facility] of Vaccine 00:00:00 [facility] Influenza Virus 2019-07-04 Completed [facility] of Vaccine [facility] 00:00:00 [facility], Preserv and ABX Branc h Free 18-64 YRS Influenza Virus 2019-07-04 Completed [facility] of Vaccine 00:00:00 [facility] Influenza Virus 2019-07-04 Completed [facility] of Vaccine [facility] 00:00:00 [facility], Preserv and ABX Branc h Free 18-64 YRS Influenza Virus 2018-06-30 Completed [facility]it y of Vaccine Quad IM 3+ 00:00:00 [facility] Influenza Virus 2018-06-30 Completed [facility] y of Vaccine Quad IM 3+ 00:00:00 [facility] Influenza Virus 2018-06-30 Completed [facility] of Vaccine Quad IM 3+ 00:00:00 [facility] Influenza Virus 2018-06-30 Completed [facility] of Vaccine Quad IM 3+ 00:00:00 [facility] Influenza Virus 2018-06-30 Completed [facility] of Vaccine Quad IM 3+ 00:00:00 [facility] Influenza Virus 2018-06-30 Completed [facility] of Vaccine Quad IM 3+ 00:00:00 [facility] Influenza Virus 2018-06-30 Completed [facility] of Vaccine Quad IM 3+ 00:00:00 [facility] Influenza Virus 2018-06-30 Completed [facility] of Vaccine Quad IM 3+ 00:00:00 [facility] Influenza Virus 2018-06-30 Completed [facility] of Vaccine Quad IM 3+ 00:00:00 [facility] Influenza Virus 2018-06-30 Completed [facility] of Vaccine Quad IM 3+ 00:00:00 [facility] Influenza Virus 2018-06-30 Completed [facility] of Vaccine Quad IM 3+ 00:00:00 [facility] Influenza Virus 2018-06-30 Completed [facility] of Vaccine Quad IM 3+ 00:00:00 [facility] Influenza Virus 2018-06-30 Completed [facility] of Vaccine Quad IM 3+ 00:00:00 [facility] Influenza Virus 2018-06-30 Completed [facility] of Vaccine Quad IM 3+ 00:00:00 [facility] Influenza Virus 2018-06-30 Completed [facility] of Vaccine Quad IM 3+ 00:00:00 [facility] Influenza Virus 2018-06-30 Completed [facility] of Vaccine Quad IM 3+ 00:00:00 [facility] Influenza Virus 2018-06-30 Completed [facility] of Vaccine Quad IM 3+ 00:00:00 [facility] Influenza Virus 2018-06-30 Completed [facility] of Vaccine Quad IM 3+ 00:00:00 [facility] Influenza Virus 2018-06-30 Completed [facility] of Vaccine Quad IM 3+ 00:00:00 [facility] Influenza Virus 2018-06-30 Completed [facility] of Vaccine Quad IM 3+ 00:00:00 [facility] Influenza Virus 2018-06-30 Completed [facility] of Vaccine Quad IM 3+ 00:00:00 [facility] Influenza Virus 2018-06-30 Completed [facility] of Vaccine Quad IM 3+ 00:00:00 [facility] Influenza Virus 2018-06-30 Completed [facility] of Vaccine Quad IM 3+ 00:00:00 [facility] Influenza Virus 2018-06-30 Completed [facility] of Vaccine Quad IM 3+ 00:00:00 [facility] Influenza Virus 2018-06-30 Completed [facility] of Vaccine Quad IM 3+ 00:00:00 [facility] Influenza Virus 2018-06-30 Completed [facility] of Vaccine Quad IM 3+ 00:00:00 [facility] Influenza Virus 2018-06-30 Completed [facility] of Vaccine Quad IM 3+ 00:00:00 [facility] Influenza Virus 2018-06-30 Completed [facility] of Vaccine Quad IM 3+ 00:00:00 [facility] Influenza Virus 2018-06-30 Completed [facility] of Vaccine Quad IM 3+ 00:00:00 [facility] Influenza Virus 2018-06-30 Completed [facility] of Vaccine Quad IM 3+ 00:00:00 [facility] Influenza Virus 2018-06-30 Completed [facility] of Vaccine Quad IM 3+ 00:00:00 [facility] Influenza Virus 2018-06-30 Completed [facility] of Vaccine Quad IM 3+ 00:00:00 [facility] Influenza Virus 2018-06-30 Completed [facility] of Vaccine Quad IM 3+ 00:00:00 [facility] Influenza Virus 2018-06-30 Completed [facility] of Vaccine Quad IM 3+ 00:00:00 [facility] Influenza Virus 2018-06-30 Completed [facility] of Vaccine Quad IM 3+ 00:00:00 [facility] Influenza Virus 2018-06-30 Completed [facility] of Vaccine Quad IM 3+ 00:00:00 [facility] Influenza Virus 2018-06-30 Completed [facility] of Vaccine Quad IM 3+ 00:00:00 [facility] Influenza Virus 2018-06-30 Completed [facility] of Vaccine Quad IM 3+ 00:00:00 [facility] Influenza Virus 2018-06-30 Completed [facility] of Vaccine Quad IM 3+ 00:00:00 [facility] Influenza Virus 2018-06-30 Completed [facility] of Vaccine Quad IM 3+ 00:00:00 [facility] Influenza Virus 2018-06-30 Completed [facility] of Vaccine Quad IM 3+ 00:00:00 [facility] Influenza Virus 2018-06-30 Completed [facility] of Vaccine Quad IM 3+ 00:00:00 [facility] Influenza Virus 2018-06-30 Completed [facility] of Vaccine Quad IM 3+ 00:00:00 [facility] Influenza Virus 2018-06-30 Completed [facility] of Vaccine Quad IM 3+ 00:00:00 [facility] Influenza Virus 2018-06-30 Completed [facility] of Vaccine Quad IM 3+ 00:00:00 [facility] Influenza Virus 2018-06-30 Completed [facility] of Vaccine Quad IM 3+ 00:00:00 [facility] Influenza Virus 2018-06-30 Completed [facility] of Vaccine Quad IM 3+ 00:00:00 [facility] Influenza Virus 2018-06-30 Completed [facility] of Vaccine Quad IM 3+ 00:00:00 [facility] Influenza Virus 2018-06-30 Completed [facility] of Vaccine Quad IM 3+ 00:00:00 [facility] Influenza Virus 2017-06-15 Completed [facility] y of Vaccine Quad ID 18-64 00:00:00 [facility] Influenza Virus 2017-06-15 Completed [facility]it y of Vaccine Quad ID 18-64 00:00:00 [facility] Influenza Virus 2017-06-15 Completed [facility]it y of Vaccine Quad ID 18-64 00:00:00 [facility] Influenza Virus 2017-06-15 Completed [facility] y of Vaccine Quad ID 18-64 00:00:00 [facility] Influenza Virus 2017-06-15 Completed [facility] y of Vaccine Quad ID 18-64 00:00:00 [facility] Influenza Virus 2017-06-15 Completed [...] [facility] of Vaccine Quad IM 00:00:00 [facility] Multi-dose 6+ MO [facility] Influenza Virus 2016-08-05 Completed [facility] of Vaccine Quad IM 00:00:00 [facility] Multi-dose 6+ MO [facility] Pneumococcal 13 2016-03-07 Completed [facility]it y of Conjugate, PCV13 00:00:00 [facility] dical (Prevnar 13) Branch Meningococcal B, OMV 2016-03-07 Completed Univ ersity of 00:00:00 [facility] Pneumococcal 13 2016-03-07 Completed [facility]it y of Conjugate, PCV13 00:00:00 [facility] dical (Prevnar 13) Branch Meningococcal B, OMV 2016-03-07 Completed Univ ersity of 00:00:00 [facility] Pneumococcal 13 2016-03-07 Completed [facility]it y of Conjugate, PCV13 00:00:00 [facility] dical (Prevnar 13) Branch Meningococcal B, OMV 2016-03-07 Completed Univ ersity of 00:00:00 [facility] Pneumococcal 13 2016-03-07 Completed [facility] y of Conjugate, PCV13 00:00:00 [facility] dical (Prevnar 13) Branch Meningococcal B, OMV 2016-03-07 Completed Univ ersity of 00:00:00 [facility] Pneumococcal 13 2016-03-07 Completed [facility]it y of Conjugate, PCV13 00:00:00 [facility] dical (Prevnar 13) Branch Meningococcal B, OMV 2016-03-07 Completed Univ ersity of 00:00:00 [facility] Pneumococcal 13 2016-03-07 Completed [facility] y of Conjugate, PCV13 00:00:00 [facility] (Prevnar 13) Branch Meningococcal B, V 2016-03-07 Completed Univ ersity of 00:00:00 [facility] Pneumococcal 13 2016-03-07 Completed [facility] y of Conjugate, PCV13 00:00:00 [facility] (Prevnar 13) Branch Meningococcal B, V 2016-03-07 Completed Univ ersity of 00:00:00 [facility] Pneumococcal 13 2016-03-07 Completed [facility] of Conjugate, PCV13 00:00:00 [facility] (Prevnar 13) Branch Meningococcal B, [facility] 2016-03-07 Completed Univ ersity of 00:00:00 [facility] Pneumococcal 13 2016-03-07 Completed [facility] of Conjugate, PCV13 00:00:00 [facility] (Prevnar 13) Branch Meningococcal B, [facility] 2016-03-07 Completed Univ ersity of 00:00:00 [facility] Pneumococcal 13 2016-03-07 Completed [facility] of Conjugate, PCV13 00:00:00 [facility] (Prevnar 13) Branch Meningococcal B, [facility] 2016-03-07 Completed Univ ersity of 00:00:00 [facility] Pneumococcal 13 2016-03-07 Completed [facility] of Conjugate, PCV13 00:00:00 [facility] (Prevnar 13) Branch Meningococcal B, [facility] 2016-03-07 Completed Univ ersity of 00:00:00 [facility] Pneumococcal 13 2016-03-07 Completed [facility] of Conjugate, PCV13 00:00:00 [facility] (Prevnar 13) Branch Meningococcal B, [facility] 2016-03-07 Completed Univ ersity of 00:00:00 [facility] Pneumococcal 13 2016-03-07 Completed [facility] of Conjugate, PCV13 00:00:00 [facility] (Prevnar 13) Branch Meningococcal B, [facility] 2016-03-07 Completed Univ ersity of 00:00:00 [facility] Pneumococcal 13 2016-03-07 Completed [facility] of Conjugate, PCV13 00:00:00 [facility] (Prevnar 13) Branch Meningococcal B, [facility] 2016-03-07 Completed Univ ersity of 00:00:00 [facility] Pneumococcal 13 2016-03-07 Completed [facility] of Conjugate, PCV13 00:00:00 [facility] (Prevnar 13) Branch Meningococcal B, V 2016-03-07 Completed Univ ersity of 00:00:00 [facility] Pneumococcal 13 2016-03-07 Completed [facility] of Conjugate, PCV13 00:00:00 [facility] (Prevnar 13) Branch Meningococcal B, V 2016-03-07 Completed Univ ersity of 00:00:00 [facility] Pneumococcal 13 2016-03-07 Completed [facility] of Conjugate, PCV13 00:00:00 [facility] (Prevnar 13) Branch Meningococcal B, V 2016-03-07 Completed Univ ersity of 00:00:00 [facility] Pneumococcal 13 2016-03-07 Completed [facility] of Conjugate, PCV13 00:00:00 [facility] (Prevnar 13) Branch Meningococcal B, V 2016-03-07 Completed Univ ersity of 00:00:00 [facility] Pneumococcal 13 2016-03-07 Completed [facility] of Conjugate, PCV13 00:00:00 [facility] (Prevnar 13) Branch Meningococcal B, [facility] 2016-03-07 Completed Univ ersity of 00:00:00 [facility] Pneumococcal 13 2016-03-07 Completed [facility] of Conjugate, PCV13 00:00:00 [facility] (Prevnar 13) Branch Meningococcal B, V 2016-03-07 Completed Univ ersity of 00:00:00 [facility] Pneumococcal 13 2016-03-07 Completed [facility] of Conjugate, PCV13 00:00:00 [facility] (Prevnar 13) Branch Meningococcal B, [facility] 2016-03-07 Completed Univ ersity of 00:00:00 [facility] Pneumococcal 13 2016-03-07 Completed [facility] of Conjugate, PCV13 00:00:00 [facility] (Prevnar 13) Branch Meningococcal B, [facility] 2016-03-07 Completed Univ ersity of 00:00:00 [facility] Pneumococcal 13 2016-03-07 Completed [facility] y of Conjugate, PCV13 00:00:00 [facility] (Prevnar 13) Branch Meningococcal B, [facility] 2016-03-07 Completed Univ ersity of 00:00:00 [facility] Pneumococcal 13 2016-03-07 Completed [facility] y of Conjugate, PCV13 00:00:00 [facility] (Prevnar 13) Branch Meningococcal B, V 2016-03-07 Completed Univ ersity of 00:00:00 [facility] Pneumococcal 13 2016-03-07 Completed [facility] y of Conjugate, PCV13 00:00:00 [facility] (Prevnar 13) Branch Meningococcal B, V 2016-03-07 Completed [facility] ersity of 00:00:00 [facility] Pneumococcal 13 2016-03-07 Completed [facility] y of Conjugate, PCV13 00:00:00 [facility] (Prevnar 13) Branch Meningococcal B, V 2016-03-07 Completed Univ ersity of 00:00:00 [facility] Pneumococcal 13 2016-03-07 Completed [facility] y of Conjugate, PCV13 00:00:00 [facility] (Prevnar 13) Branch Meningococcal B, [facility] 2016-03-07 Completed Univ ersity of 00:00:00 [facility] Pneumococcal 13 2016-03-07 Completed [facility] y of Conjugate, PCV13 00:00:00 [facility] (Prevnar 13) Branch Meningococcal B, [facility] 2016-03-07 Completed Univ ersity of 00:00:00 [facility] Pneumococcal 13 2016-03-07 Completed [facility] y of Conjugate, PCV13 00:00:00 [facility] (Prevnar 13) Branch Meningococcal B, [facility] 2016-03-07 Completed Univ ersity of 00:00:00 [facility] Pneumococcal 13 2016-03-07 Completed [facility] y of Conjugate, PCV13 00:00:00 [facility] (Prevnar 13) Branch Meningococcal B, [facility] 2016-03-07 Completed Univ ersity of 00:00:00 [facility] Pneumococcal 13 2016-03-07 Completed [facility] y of Conjugate, PCV13 00:00:00 [facility] (Prevnar 13) Branch Meningococcal B, [facility] 2016-03-07 Completed Univ ersity of 00:00:00 [facility] Pneumococcal 13 2016-03-07 Completed [facility] y of Conjugate, PCV13 00:00:00 [facility] (Prevnar 13) Branch Meningococcal B, [facility] 2016-03-07 Completed Univ ersity of 00:00:00 [facility] Pneumococcal 13 2016-03-07 Completed [facility] y of Conjugate, PCV13 00:00:00 [facility] (Prevnar 13) Branch Meningococcal B, V 2016-03-07 Completed Univ ersity of 00:00:00 [facility] Pneumococcal 13 2016-03-07 Completed [facility] y of Conjugate, PCV13 00:00:00 [facility] (Prevnar 13) Branch Meningococcal B, V 2016-03-07 Completed Univ ersity of 00:00:00 [facility] Pneumococcal 13 2016-03-07 Completed [facility] y of Conjugate, PCV13 00:00:00 [facility] dical (Prevnar 13) Branch Meningococcal B, [facility] 2016-03-07 Completed Univ ersity of 00:00:00 [facility] Pneumococcal 13 2016-03-07 Completed [facility] y of Conjugate, PCV13 00:00:00 [facility] (Prevnar 13) Branch Meningococcal B, [facility] 2016-03-07 Completed Univ ersity of 00:00:00 [facility] Pneumococcal 13 2016-03-07 Completed [facility] y of Conjugate, PCV13 00:00:00 [facility] dical (Prevnar 13) Branch Meningococcal B, [facility] 2016-03-07 Completed Univ ersity of 00:00:00 [facility] Pneumococcal 13 2016-03-07 Completed [facility] y of Conjugate, PCV13 00:00:00 [facility] dical (Prevnar 13) Branch Meningococcal B, [facility] 2016-03-07 Completed Univ ersity of 00:00:00 [facility] Pneumococcal 13 2016-03-07 Completed Universit y of Conjugate, PCV13 00:00:00 [facility] dical (Prevnar 13) Branch Meningococcal B, [facility] 2016-03-07 Completed Univ ersity of 00:00:00 [facility] Pneumococcal 13 2016-03-07 Completed [facility] y of Conjugate, PCV13 00:00:00 [facility] (Prevnar 13) Branch Meningococcal B, [facility] 2016-03-07 Completed Univ ersity of 00:00:00 [facility] Pneumococcal 13 2016-03-07 Completed [facility] y of Conjugate, PCV13 00:00:00 [facility] dical (Prevnar 13) Branch Meningococcal B, [facility] 2016-03-07 Completed Univ ersity of 00:00:00 [facility] Pneumococcal 13 2016-03-07 Completed [facility] y of Conjugate, PCV13 00:00:00 [facility] (Prevnar 13) Branch Meningococcal B, V 2016-03-07 Completed Univ ersity of 00:00:00 [facility] Pneumococcal 13 2016-03-07 Completed Univers[facility] y of Conjugate, PCV13 00:00:00 [place] [facility] (Prevnar 13) Branch Meningococcal B, [facility] 2016-03-07 Completed Univ ersity of 00:00:00 [facility] Pneumococcal 13 2016-03-07 Completed [facility] y of Conjugate, PCV13 00:00:00 [facility] (Prevnar 13) Branch Meningococcal B, [facility] 2016-03-07 Completed Univ ersity of 00:00:00 [facility] Pneumococcal 13 2016-03-07 Completed [facility] y of Conjugate, PCV13 00:00:00 [facility] (Prevnar 13) Branch Meningococcal B, [facility] 2016-03-07 Completed Univ ersity of 00:00:00 [facility] Pneumococcal 13 2016-03-07 Completed [facility] y of Conjugate, PCV13 00:00:00 [facility] (Prevnar 13) Branch Meningococcal B, [facility] 2016-03-07 Completed Univ ersity of 00:00:00 [facility] Pneumococcal 13 2016-03-07 Completed [facility] y of Conjugate, PCV13 00:00:00 [facility] (Prevnar 13) Branch Meningococcal B, [facility] 2016-03-07 Completed [facility] ersity of 00:00:00 [facility] Pneumococcal 13 2016-03-07 Completed [facility] y of Conjugate, PCV13 00:00:00 [facility] (Prevnar 13) Branch Meningococcal B, [facility] 2016-03-07 Completed [facility] ersity of 00:00:00 [facility] Pneumococcal 13 2016-03-07 Completed [facility] y of Conjugate, PCV13 00:00:00 [facility] (Prevnar 13) Branch Meningococcal B, [facility] 2016-03-07 Completed Univ ersity of 00:00:00 [facility] Heamophilus Influenza 2015-11-13 Completed Uni versity of B 00:00:00 [facility] Heamophilus Influenza 2015-11-13 Completed Uni versity of B 00:00:00 [facility] Heamophilus Influenza 2015-11-13 Completed Uni versity of B 00:00:00 [facility] Heamophilus Influenza 2015-11-13 Completed Uni versity of B 00:00:00 [facility] Heamophilus Influenza 2015-11-13 Completed Uni versity of B 00:00:00 [facility] Heamophilus Influenza 2015-11-13 Completed Uni versity of B 00:00:00 [facility] Heamophilus Influenza 2015-11-13 Completed Uni versity of B 00:00:00 [facility] Heamophilus Influenza 2015-11-13 Completed Uni versity of B 00:00:00 [facility] Heamophilus Influenza 2015-11-13 Completed Uni versity of B 00:00:00 [facility] Heamophilus Influenza 2015-11-13 Completed Uni versity of B 00:00:00 [facility] Heamophilus Influenza 2015-11-13 Completed Uni versity of B 00:00:00 [facility] Heamophilus Influenza 2015-11-13 Completed Uni versity of B 00:00:00 [facility] Heamophilus Influenza 2015-11-13 Completed Uni versity of B 00:00:00 [facility] Heamophilus Influenza 2015-11-13 Completed Uni versity of B 00:00:00 [facility] Heamophilus Influenza 2015-11-13 Completed Uni versity of B 00:00:00 [facility] Heamophilus Influenza 2015-11-13 Completed Uni versity of B 00:00:00 [facility] Heamophilus Influenza 2015-11-13 Completed Uni versity of B 00:00:00 [facility] Heamophilus Influenza 2015-11-13 Completed Uni versity of B 00:00:00 [facility] Heamophilus Influenza 2015-11-13 Completed Uni versity of B 00:00:00 [facility] Heamophilus Influenza 2015-11-13 Completed Uni versity of B 00:00:00 [facility] Heamophilus Influenza 2015-11-13 Completed Uni versity of B 00:00:00 [facility] Heamophilus Influenza 2015-11-13 Completed Uni versity of B 00:00:00 [facility] Heamophilus Influenza 2015-11-13 Completed Uni versity of B 00:00:00 [facility] Heamophilus Influenza 2015-11-13 Completed Uni versity of B 00:00:00 [facility] Heamophilus Influenza 2015-11-13 Completed Uni versity of B 00:00:00 [facility] Heamophilus Influenza 2015-11-13 Completed Uni versity of B 00:00:00 [facility] Heamophilus Influenza 2015-11-13 Completed Uni versity of B 00:00:00 [facility] Heamophilus Influenza 2015-11-13 Completed Uni versity of B 00:00:00 [facility] Heamophilus Influenza 2015-11-13 Completed Uni versity of B 00:00:00 [facility] Heamophilus Influenza 2015-11-13 Completed Uni versity of B 00:00:00 [facility] Heamophilus Influenza 2015-11-13 Completed Uni versity of B 00:00:00 [facility] Heamophilus Influenza 2015-11-13 Completed Uni versity of B 00:00:00 [facility] Heamophilus Influenza 2015-11-13 Completed Uni versity of B 00:00:00 [facility] Heamophilus Influenza 2015-11-13 Completed Uni versity of B 00:00:00 [facility] Heamophilus Influenza 2015-11-13 Completed Uni versity of B 00:00:00 [facility] Heamophilus Influenza 2015-11-13 Completed Uni versity of B 00:00:00 [facility] Heamophilus Influenza 2015-11-13 Completed Uni versity of B 00:00:00 [facility] Heamophilus Influenza 2015-11-13 Completed Uni versity of B 00:00:00 [facility] Heamophilus Influenza 2015-11-13 Completed Uni versity of B 00:00:00 [facility] Heamophilus Influenza 2015-11-13 Completed Uni versity of B 00:00:00 [facility] Heamophilus Influenza 2015-11-13 Completed Uni versity of B 00:00:00 [facility] Heamophilus Influenza 2015-11-13 Completed Uni versity of B 00:00:00 [facility] Heamophilus Influenza 2015-11-13 Completed Uni versity of B 00:00:00 [facility] Heamophilus Influenza 2015-11-13 Completed Uni versity of B 00:00:00 [facility] Heamophilus Influenza 2015-11-13 Completed [facility] B 00:00:00 [facility] [facility] Heamophilus Influenza 2015-11-13 Completed Uni versity of B 00:00:00 [facility] Heamophilus Influenza 2015-11-13 Completed Uni versity of B 00:00:00 [facility] Heamophilus Influenza 2015-11-13 Completed Uni versity of B 00:00:00 [facility] Heamophilus Influenza 2015-11-13 Completed Uni versity of B 00:00:00 [facility] Meningococcal 2015-11-12 Completed University of Polysaccharide [...] (MCV4P) TDAP 2015-10-31 Completed University of 00:00:00 [facility] TDAP 2015-10-31 Completed University of 00:00:00 [facility] TDAP 2015-10-31 Completed University of 00:00:00 [facility] TDAP 2015-10-31 Completed University of 00:00:00 [facility] TDAP 2015-10-31 Completed University of 00:00:00 [facility] TDAP 2015-10-31 Completed University of 00:00:00 [facility] TDAP 2015-10-31 Completed University of 00:00:00 [facility] TDAP 2015-10-31 Completed University of 00:00:00 [facility] TDAP 2015-10-31 Completed University of 00:00:00 [facility] TDAP 2015-10-31 Completed University of 00:00:00 [facility] TDAP 2015-10-31 Completed University of 00:00:00 [facility] TDAP 2015-10-31 Completed University of 00:00:00 [facility] TDAP 2015-10-31 Completed University of 00:00:00 [facility] TDAP 2015-10-31 Completed University of 00:00:00 [facility] TDAP 2015-10-31 Completed University of 00:00:00 [facility] TDAP 2015-10-31 Completed University of 00:00:00 [facility] TDAP 2015-10-31 Completed University of 00:00:00 [facility] TDAP 2015-10-31 Completed University of 00:00:00 [facility] TDAP 2015-10-31 Completed University of 00:00:00 [facility] TDAP 2015-10-31 Completed University of 00:00:00 [facility] TDAP 2015-10-31 Completed University of 00:00:00 [facility] TDAP 2015-10-31 Completed University of 00:00:00 [facility] TDAP 2015-10-31 Completed University of 00:00:00 [facility] TDAP 2015-10-31 Completed University of 00:00:00 [facility] TDAP 2015-10-31 Completed University of 00:00:00 [facility] TDAP 2015-10-31 Completed University of 00:00:00 [facility] TDAP 2015-10-31 Completed University of 00:00:00 [facility] TDAP 2015-10-31 Completed University of 00:00:00 [facility] TDAP 2015-10-31 Completed University of 00:00:00 [facility] TDAP 2015-10-31 Completed University of 00:00:00 [facility] TDAP 2015-10-31 Completed University of 00:00:00 [facility] TDAP 2015-10-31 Completed University of 00:00:00 [facility] TDAP 2015-10-31 Completed University of 00:00:00 [facility] TDAP 2015-10-31 Completed University of 00:00:00 [facility] TDAP 2015-10-31 Completed University of 00:00:00 [facility] TDAP 2015-10-31 Completed University of 00:00:00 [facility] TDAP 2015-10-31 Completed University of 00:00:00 [facility] TDAP 2015-10-31 Completed University of 00:00:00 [facility] TDAP 2015-10-31 Completed University of 00:00:00 [facility] TDAP 2015-10-31 Completed University of 00:00:00 [facility] TDAP 2015-10-31 Completed University of 00:00:00 [facility] TDAP 2015-10-31 Completed University of 00:00:00 [facility] TDAP 2015-10-31 Completed University of 00:00:00 [facility] TDAP 2015-10-31 Completed University of 00:00:00 [facility] TDAP 2015-10-31 Completed University of 00:00:00 [facility] TDAP 2015-10-31 Completed University of 00:00:00 [facility] TDAP 2015-10-31 Completed University of 00:00:00 [facility] TDAP 2015-10-31 Completed University of 00:00:00 [facility] TDAP 2015-10-31 Completed University of 00:00:00 [facility] Pneumococcal 2014-04-01 Completed University o f Polysaccharide, 00:00:00 [place] [facility] PPSV23 (PNEUMOVAX) Branch Pneumococcal 2014-04-01 Completed University o f Polysaccharide, 00:00:00 [place] [facility] PPSV23 (PNEUMOVAX) [facility] Pneumococcal 2014-04-01 Completed University o f Polysaccharide, 00:00:00 [place] [facility] PPSV23 (PNEUMOVAX) Branch Pneumococcal 2014-04-01 [...] Time Observation Value Comments Source Systolic blood 2022-06-17 15:45:00 104 mm[Hg] Univer sity of pressure [facility] Diastolic blood 2022-06-17 15:45:00 69 mm[Hg] Unive rsity of pressure [facility] Heart rate 2022-06-17 15:45:00 97 /min [facility] Body height 2022-06-17 15:45:00 157.5 cm [facility] Body weight 2022-06-17 15:45:00 101.878 kg [facility] BMI 2022-06-17 15:45:00 41.08 kg/m2 [facility] Oxygen saturation in 2022-06-17 15:45:00 98 /min University of Arterial blood by [facility] Pulse oximetry Branch Systolic blood 2022-06-15 13:01:00 101 mm[Hg] Univer sity of pressure [facility] Diastolic blood 2022-06-15 13:01:00 68 mm[Hg] Unive rsity of pressure [facility] Heart rate 2022-06-15 13:01:00 74 /min [facility] Body temperature 2022-06-15 13:01:00 36.89 Melissa Univ ersity of [facility] Body weight 2022-06-15 13:01:00 102.967 kg [facility] BMI 2022-06-15 13:01:00 41.52 kg/m2 [facility] Systolic blood 2022-03-27 12:44:00 131 mm[Hg] Univer sity of pressure [facility] Diastolic blood 2022-03-27 12:44:00 83 mm[Hg] Unive rsity of pressure [facility] Heart rate 2022-03-27 12:44:00 102 /min [facility] Body temperature 2022-03-27 12:44:00 37.11 Melissa Univ ersity [facility] Respiratory rate 2022-03-27 12:44:00 18 /min Univ ersity [facility] Body height 2022-03-27 12:44:00 157.5 cm [facility] Body weight 2022-03-27 12:44:00 96.616 kg [facility] BMI 2022-03-27 12:44:00 38.96 kg/m2 [facility] Oxygen saturation in 2022-03-27 12:44:00 98 /min University of Arterial blood by [facility] Pulse oximetry Branch Systolic blood 2022-03-02 15:40:00 113 mm[Hg] Univer sity of [facility] Diastolic blood 2022-03-02 15:40:00 72 mm[Hg] Unive rsity of pressure [facility] Heart rate 2022-03-02 15:40:00 82 /min Universi ty of [facility] Respiratory rate 2022-03-02 15:40:00 16 /min [facility] ersity of [facility] Oxygen saturation in 2022-03-02 15:40:00 97 /min University of Arterial blood by [facility] cipriano Pulse oximetry Branch Body temperature 2022-03-02 15:23:00 36.28 Melissa [facility] ersity of [facility] Body weight 2022-02-24 17:00:00 100.245 kg Universi ty of [facility] BMI 2022-02-24 17:00:00 40.42 kg/m2 Universi ty of [facility] Systolic blood 2022-03-02 15:25:00 98 mm[Hg] Univer sity of pressure [facility] Diastolic blood 2022-03-02 15:25:00 55 mm[Hg] Unive rsity of [facility] Heart rate 2022-03-02 15:25:00 85 /min Universi ty of [facility] Respiratory rate 2022-03-02 15:25:00 18 /min [facility] ersity [facility] Oxygen saturation in 2022-03-02 15:25:00 100 /min University of Arterial blood by [facility] Pulse oximetry Branch Body temperature 2022-03-02 15:23:00 36.28 Melissa [facility] ersity of [facility] Body weight 2022-02-24 17:00:00 100.245 kg Universi ty of [facility] BMI 2022-02-24 17:00:00 40.42 kg/m2 [facility] Procedures Procedure Date / Time Performing Source Performed Clinician DISABILITY/FMLA 2022-07-01 [facility] [place] of 05:01:00 Unassigned, No [facility] MR THORACIC SPINE WO CONTRAST 2022-06-30 Brunilda, Crystal Un iversity of 16:22:01 [facility] MR CERVICAL SPINE WO CONTRAST 2022-06-30 Brunilda, Crystal Un iversity of 16:20:35 [facility] CONSENT/REFUSAL FOR DIAGNOSIS AND 2022-06-30 [facility] TREATMENT 14:32:21 Unassigned, No [facility] CONSENT/REFUSAL FOR DIAGNOSIS AND 2022-06-30 [facility] TREATMENT 14:32:20 Unassigned, No [facility] INSURANCE CORRESPONDENCE 2022-06-17 [facility] of 05:01:00 Unassigned, No [facility] POWER OF GALVANIZER ZINC 2022-06-01 [facility] of 05:01:00 Unassigned, No [facility] POWER OF GALVANIZER ZINC 2022-05-13 [facility] of 05:01:00 Unassigned, No [facility] DME/SUPPLY JUSTIFICATION 2022-05-06 Doctor [facility] ity of 05:01:00 Unassigned, No [facility] EMG/NCV 2022-04-08 Brunilda [facility] of 14:43:00 [facility] CONSENT/REFUSAL FOR DIAGNOSIS AND 2022-03-27 [facility] TREATMENT 12:40:53 Unassigned, No [facility] PHYSICIAN ORDERS 2022-03-19 [facility] 05:01:00 Unassigned, No [facility] COLONOSCOPY (ENDO) 2022-03-02 Tray Jolly [place] of 14:43:32 [facility] COLONOSCOPY (ENDO) 2022-03-02 R[facility] of 14:43:32 [facility] COLONOSCOPY 2022-03-02 Márquez, [facility] of 14:02:00 [facility] ESOPHAGOGASTRODUODENOSCOPY 2022-03-02 Márquez, [facility] ersity of 14:02:00 [facility] EGD (ENDO) 2022-03-02 [facility] of 13:53:24 [facility] EGD (ENDO) 2022-03-02 [facility] 13:53:24 [facility]AGE >30DAYS[facility] 2022[facility]03-02 [facility] 12:59:00 [facility] POCT GLUCOSE(AGE >30DAYS) 2022-03-02 [facility] 12:59:00 [facility] POCT GLUCOSE (AUTOMATED) 2022-03-02 Cecile Márquez [facility] sity of 12:58:00 [facility] POCT GLUCOSE (AUTOMATED) 2022-03-02 Cecile Márquez [facility] sity of 12:58:00 [facility] POCT TEST 2022-03-02 [facility] 12:48:00 [facility] POCT TEST 2022-03-02 Troy [facility] of 12:48:00 [facility] DAY SURGERY - ADC 2022-03-02 [facility] [place] of 05:01:00 Unassigned, No [facility] Branch DME/SUPPLY JUSTIFICATION 2022-01-04 Doctor [facility] ity of 05:01:00 Unassigned, No [facility] Branch DME/SUPPLY JUSTIFICATION 2022-01-04 Doctor Univers ity of 05:01:00 Unassigned, No [facility] Name Branch DISCLOSURE AND CONSENT, MEDICAL 2021-12-28 [facility] of AND SURGICAL PROCEDURES 05:01:00 Unassigned, No [facility] dical Name Branch DISCLOSURE AND CONSENT, MEDICAL 2021-12-28 [facility] of AND SURGICAL PROCEDURES 05:01:00 Unassigned, No [facility] dical Name Branch Encounters Start End Encounter Admission Attending Care Care Encounter Source Date/Time Date/Time Type Type Clinicians Facility Department ID 2022-02-16 Outpatient Brock MÁRQUEZ [facility] MARCUS [id number] Univers 10:29:45 CECILE flores [facility] 2021-12-01 Outpatient Brock MÁRQUEZ [facility] MARCUS [id number] Univers 13:05:09 CECILE flores [facility] 2021-11-04 Outpatient Brock MÁRQUEZ [facility] MARCUS [id number] Univers 15:43:22 CECILE flores [facility] 2021-07-27 Emergency [facility] [id number] Univers 19:11:28 ity of [facility] 2021-07-27 Emergency [facility] [id number] Univers 10:12:30 ity of [facility] 2021-07-27 Emergency [facility] [id number] Univers 06:35:13 ity of [facility] 2021-07-27 Emergency [facility] [id number] Univers 04:01:19 itjay of [facility] 2021-07-26 Emergency [facility] [id number] Univers 12:06:22 ity of [facility] 2021-07-26 Emergency [facility] [id number] Univers 11:43:46 itjay of [facility] 2022-08-24 2022-08-24 Outpatient Brock JOLLY [facility] [id number] Univers 09:00:00 09:00:00 TRAY flores [facility] 2022-08-24 2022-08-24 Outpatient R RIK [facility] [id number] Univers 09:00:00 09:00:00 TRAY flores [facility] 2022-07-08 2022-07-08 Refill Rik [facility] 1.2.840.114 [id number] Univers 00:00:00 00:00:00 Tray GREGORIO 350.1.13.10 i ty of [place] [id number] [place]ical NAL [address] [place] [address] 2022-07-07 2022-07-07 Outpatient R STELLA WORLEY [facility] [id number] Univers 00:00:00 00:00:[address] [facility] 2022-07-01 2022-07-01 Orders Doctor CLAU 1.2.840.114 [id number] Univers 00:00:00 00:00:00 Only Unassigned, GRAYSON 350.1.13.10 ity of [facility] 4.2.7.2.686 Emanuel as [id number] [address] 2022-06-30 2022-06-30 Outpatient R STELLA WORLEY [facility] [id number] Univers 09:34:33 23:59:00 BRUNILDASTELLA [facility] 2022-06-30 2022-06-30 [facility] Stella Worley [facility] 1.2.840.114 [id number] Univers 09:34:33 23:59:00 Encounter JG 350.1.13.10 [facility] 4.2.7.[place] [id number] [facility] [address] [place] 2022-06-30 2022-06-30 [facility] Stella Worley [facility] 1.2.840.114 [id number] Univers 09:34:16 23:59:00 Encounter JG 350.1.13.10 ity of [place]2.[place] [id number] [facility] [address] [place] 2022-06-30 2022-06-30 Orders Doctor CLAU 1.2.840.114 [id number] Univers 00:00:00 00:00:00 Only Unassigned, GRAYSON 350.1.13.10 ity of [facility] 4.2.7.2.686 Emanuel as [id number] [address] 2022-06-24 2022-06-24 Outpatient R BRUNILDASTELLA [facility] [id number] Univers 00:00:00 00:00:00 BRUNILDASTELLA of [facility] 2022-06-24 2022-06-24 Telephone BrunildaStella [facility] 1.2.840.114 [id number] Univers 00:00:00 00:00:00 HEALTH 350.1.13.10 it y [place] L[place] [id number] [address] OFFICE BUILDING 2022-06-21 2022-06-21 Outpatient R RIK [facility] [id number] Univers 11:00:00 11:00:00 TRAY itjay [facility] 2022-06-21 2022-06-21 Telephone Kikafatuma [facility] 1.2.840.114 [id number] Univers 00:00:00 00:00:00 Tray HEALTH 350.1.13.10 it y of Edbrittnee [place] 4.2.7.2.686 Emanuel as JOLLY?BLEA [id number] [place] gabi CHAIREZ [address] [place] [address] MEDICAL OFFICE BUILDING 2022-06-17 2022-06-17 Office Stella Worley [facility] 1.2.840.114 [id number] Univers 11:00:00 11:30:00 Visit HEALTH 350.1.13.10 it y [place] [id number] [address] OFFICE BUILDING 2022-06-17 2022-06-17 Outpatient R BRUNILDA STELLA [facility] [id number] Univers 11:00:00 11:00:00 BRUNILDASTELLA of [facility] 2022-06-17 2022-06-17 Refill BrunildaStella [facility] 1.2.840.114 [id number] Univers 00:00:00 00:00:00 HEALTH 350.1.13.10 it y [place]2.[place] [id number] [facility] [address] OFFICE BUILDING 2022-06-17 2022-06-17 Orders Doctor CLAU 1.2.840.114 [id number] Univers 00:00:00 00:00:00 Only Unassigned, GRAYSON 350.1.13.10 ity of [facility] 4.2.7.2.686 Emanuel as [id number] [address] 2022-06-16 2022-06-16 Telephone [facility] 1.2.840.114 [id number] Univers 00:00:00 00:00:00 [facility] 350.1.13.10 it y of [facility] 4.2.7.2.686 Emanuel as JOLLY?BLEA [id number] [address] OFFICE [facility] 2022-06-15 2022-06-15 [facility] [id number] Univers 08:00:00 08:25:29 TRAY ity of [facility] 2022-06-15 2022-06-15 Office [facility] 1.2.840.114 [id number] Univers 08:00:00 08:25:29 Visit [facility] 350.1.13.10 it y of [facility] 4.2.7.2.686 Emanuel as JOLLY?BLEA [id number] [address] OFFICE [facility] 2022-06-14 2022-06-14 Telephone [facility] 1.2.840.114 [id number] Univers 00:00:00 00:00:00 Cecile GREGORIO 350.1.13.10 i ty of [place]2.7[place]2.[place] STEPHANIE [id number] [address] 2022-06-11 2022-06-11 Telephone [facility] 1.2.840.114 [id number] Univers 00:00:00 00:00:00 [facility] 350.1.13.10 it y of [place] 4.2.7.2.686 Emanuel as JOLLY?BLEA [id number] [address] MEDICAL OFFICE BUILDING 2022-06-09 2022-06-09 Telephone Rik [facility] 1.2.840.114 [id number] Univers 00:00:00 00:00:00 Tray HEALTH 350.1.13.10 it y of [place] 4.2.7.2.686 Emanuel as JOLLY?BLEA [id number] [facility] 044 [facility] OFFICE [facility] 2022-06-04 2022-06-04 RefStella Hamilton [facility] 1.2.840.114 [id number] Univers 00:00:00 00:00:00 HEALTH 350.1.13.10 it [place] [id number] [address] OFFICE [facility] 2022-06-04 2022-06-04 Telephone NurseRy [facility] 1.2.840.114 [id number] Univers 00:00:00 00:00:00 HEALTH 350.1.13.10 it y of JG 4.2.7.2.686 Emanuel as JOLLY?BLEA [id number] [address] OFFICE [facility] 2022-06-04 2022-06-04 Reffranchesca Márquez [facility] 1.2.087.805 [id number] Univers 00:00:00 00:00:00 Cecile GREGORIO 350.1.13.10 i ty of [place] 4[place]2.[place] [id number] [address] 2022-06-03 2022-06-03 Outpatient R STELLA WORLEY [facility] [id number] Univers 09:30:00 09:30:00 STELLA WORLEY it y of [facility] 2022-06-02 2022-06-02 Stella Barrow [facility] 1.2.840.114 [id number] Univers 00:00:00 00:00:00 HEALTH 350.1.13.10 it y of [place]2.[place] [id number] [address] OFFICE [facility] 2022-06-02 2022-06-02 Stella Barrow [facility] 1.2.840.114 [id number] Univers 00:00:00 00:00:00 HEALTH 350.1.13.10 it y of [place]2.[place] [id number] [facility] [address] [place] [address] OFFICE BUILDING 2022-06-02 2022-06-02 Telephone [facility] 1.2.840.114 [id number] Univers 00:00:00 00:00:00 Cecile JG 350.1.13.10 i ty of [place].2.[place] [id number] [facility] [address] [facility] 2022-06-01 2022-06-01 Orders Doctor CLAU 1.2.840.114 [id number] Univers 00:00:00 00:00:00 Only Unassigned, GRAYSON 350.1.13.10 ity of [facility] 4.2.7.2.686 Emanuel as [id number] [address] 2022-06-01 2022-06-01 Stella Barrow [facility] 1.2.840.114 [id number] Univers 00:00:00 00:00:00 HEALTH 350.1.13.10 it y of [place] [id number] [facility] [address] [place] [address] OFFICE BUILDING 2022-06-01 2022-06-01 Reffranchesca [facility] 1.2.543.750 [id number] Univers 00:00:00 00:00:00 Cecile GREGORIO 350.1.13.10 i ty [facility] 4.2.7.2.[place] [id number] [facility] [address] [facility] 2022-05-28 2022-05-28 Reffranchesca Jolly [facility] 1.2.840.114 [id number] Univers 00:00:00 00:00:00 Tray HEALTH 350.1.13.10 it y of [place] 4.2.7.2.686 Emanuel as JOLLY?BLEA [id number] Nj dicroshan CHAIREZ 044 [facility] OFFICE BUILDING 2022-05-26 2022-05-26 Stella Barrow [facility] 1.2.840.114 [id number] Univers 00:00:00 00:00:00 HEALTH 350.1.13.10 it y [place]2.[place] [id number] [address] OFFICE BUILDING 2022-05-18 2022-05-18 Outpatient R SANJAY SÁNCHEZ [facility] [id number] Univers 09:00:00 09:00:00 ity of [facility] 2022-05-17 2022-05-17 Outpatient R RIK [facility] [id number] Univers 09:00:00 09:00:00 TRAY ity [facility] 2022-05-13 2022-05-13 Orders Doctor CLAU 1.2.840.114 [id number] Univers 00:00:00 00:00:00 Only Unassigned, GRAYSON 350.1.13.10 ity of [facility] 4.2.7.2.686 Emanuel as [id number] [address] 2022-05-13 2022-05-13 Telephone Rik [facility] 1.2.840.114 [id number] Univers 00:00:00 00:00:00 [facility] 350.1.13.10 it y of Edbrittnee [place] 4.2.7.2.686 Emanuel as JOLLY?BLEA [id number] Nj gabi CHAIREZ [address] [place] [address] OFFICE [facility] 2022-05-10 2022-05-10 Outpatient R RIK [facility] [id number] Univers 16:15:00 16:15:00 TRAY flores [facility] 2022-05-10 2022-05-10 Outpatient STELLA DAVILA [facility] [id number] Univers 00:00:00 00:00:00 STELLA WORLEY it y of [facility] 2022-05-06 2022-05-06 Telephone Stella Worley [facility] 1.2.840.114 [id number] Univers 00:00:00 00:00:00 HEALTH 350.1.13.10 it y of [place] [id number] [address] OFFICE BUILDING 2022-05-06 2022-05-06 Orders Doctor CLAU 1.2.840.114 [id number] Univers 00:00:00 00:00:00 Only Unassigned, GRAYSON 350.1.13.10 ity of [facility] 4.2.7.2.686 Emanuel as [id number] [address] 2022-04-29 2022-04-29 Outpatient R JEFF [facility] [id number] Univers 14:00:00 14:00:00 CLAU ity [facility] 2022-04-14 2022-04-14 Outpatient R VIK OLIVEIRA [facility] [id number] Univers 09:00:00 09:00:00 ity of [facility] 2022-04-12 2022-04-12 [facility] 1.2.840.114 [id number] Univers 00:00:00 00:00:00 Sendlarissa GREGORIO 350.1.13.10 it[facility] 4.2.7.2.[place] [id number] Nj dical NAL [address] [facility] 2022-04-09 2022-04-09 Outpatient R MOMO [facility] [id number] Univers 11:00:00 11:00:00 ISAC ity [facility] 2022-04-08 2022-04-08 Hospital [facility] 1.2.840.114 [id number] Univers 08:30:00 23:59:00 [facility] 350.1.13.10 ity of [place] [id number] [facility] [address] [place] OFFICE BUILDING 2022-04-08 2022-04-08 Outpatient R AGUSTINA [facility] [id number] Univers 08:30:00 23:59:00 KAMAKSHI ity o f [facility] 2022-04-08 2022-04-08 Telephone Stella Worley [facility] 1.2.840.114 [id number] Univers 00:00:00 00:00:00 HEALTH 350.1.13.10 it y of [place]2.[place] LYNN [id number] [facility] [address] [place] OFFICE BUILDING 2022-04-02 2022-04-02 Outpatient [facility] [id number] Univers 09:30:00 09:30:00 MATEO flores [facility] 2022-03-31 2022-03-31 Telephone [facility] 1.2.840.114 [id number] Univers 00:00:00 00:00:00 [facility] 350.1.13.10 it y of [place] [facility] 4.2.7.2.686 Emanuel as JOLLY?BLEA [id number] [address] MEDICAL OFFICE [facility] 2022-03-27 2022-03-27 Emergency [facility] 1.2.443.070 [id number] [id number] Univers 07:48:00 08:22:00 [facility]ickie [facility] 350.1.13.10 i ty of [place] 4.2.7.2.686 [place] [facility] [id number] [address] 2022-03-27 2022-03-27 Emergency [facility] ERT [id number] Univers 07:48:00 08:22:00 DESTINY flores [facility] 2022-03-27 2022-03-27 Orders Doctor CLAU 1.2.840.114 [id number] Univers 00:00:00 00:00:00 Only Unassigned, GRAYSON 350.1.13.10 [place] [facility] 4.2.7.2.686 Emanuel as [id number] [address] 2022-03-24 2022-03-24 Telephone [facility] 1.2.840.114 [id number] Univers 00:00:00 00:00:00 [facility] 350.1.13.10 it y of [place] [facility] 4.2.7.2.686 Emanuel as JOLLY?BLEA [phone] [address] OFFICE [facility] 2022-03-19 2022-03-19 Orders Doctor LCAU 1.2.840.114 [id number] Univers 00:00:00 00:00:00 Only Unassigned, GRAYSON 350.1.13.10 [place] [facility] 4.2.7.2.686 Emanuel as [id number] [address] 2022-03-19 2022-03-19 Telephone [facility] 1.2.840.114 [id number] [id number] Univers 00:00:00 00:00:00 Tray HEALTH 350.1.13.10 it y of [place] 4.2.7.2.686 Emanuel as JOLLY?BLEA [phone] [address] OFFICE [facility] 2022-03-17 2022-03-17 Telephone [facility] 1.2.840.114 [id number] [id number] Univers 00:00:00 00:00:00 Tray HEALTH 350.1.13.10 it y of [place] 4.2.7.2.686 Emanuel as JOLLY?BLEA [id number] [address] OFFICE [facility] 2022-03-12 2022-03-12 Stella Barrow [facility] 1.2.840.114 [id number] Univers 00:00:00 00:00:00 HEALTH 350.1.13.10 it y of [place] 4.2.7.2.686 [place] [phone] [address] OFFICE BUILDING 2022-03-08 2022-03-08 Telephone [facility] 1.2.840.114 [id number] [id number] Univers 00:00:00 00:00:00 Tray HEALTH 350.1.13.10 it y of [place] 4.2.7.2.686 Emanuel as JOLLY?BLEA [id number] [address] OFFICE [facility] 2022-03-02 2022-03-02 Outpatient [facility] M[facility] 93531 [id number] Univers 07:39:00 11:22:00 CECILE itjay of [facility] 2022-03-02 2022-03-02 Hospital [facility] 1..840.114 [id number] Univers 07:39:00 11:22:00 Encounter Cecile GREGORIO 350.1.13.10 ity of [place] 4.2.7.2.686 [place] SURGICAL [id number] [address] 2022-03-02 2022-03-02 Surgery [facility] 1.2.412.659 8280 7779 Univers 09:11:00 10:25:00 Cecile GREGORIO 350.1.13.10 i ty of [place] 4.2.7.2.686 [place] SURGICAL [id number] [facility] [address] 2022-03-02 2022-03-02 Orders Doctor CLAU 1.2.840.114 [id number] Univers 00:00:00 00:00:00 Only Unassigned, GRAYSON 350.1.13.10 [place] [facility] 4.2.7.2.686 Emanuel as [id number] [facility] [address] 2022-03-01 2022-03-01 Telephone [facility] 1.2.840.114 [id number] Univers 00:00:00 00:00:00 Cecile GREGORIO 350.1.13.10 i ty of [place] 4.2.7.2.686 [place] PROFESS[place] [phone] Nj dical NAL [address] BUILDING 2022-03-01 2022-03-01 Susan [facility] 1.2.840.114 [id number] Univers 00:00:00 00:00:00 Ricardo GREGORIO 350.1.13.10 ity of [place] 4.2.7.2.686 [place] [phone] Nj dical NAL [address] BUILDING 2022-02-25 2022-02-25 Outpatient R RIK [facility] [id number] Univers 11:00:00 11:00:00 TRAY flores of [facility] 2022-02-25 2022-02-25 Telephone Stella Worley [facility] 1.2.840.114 [id number] Univers 00:00:00 00:00:00 HEALTH 350.1.13.10 it y of [place] 4.2.7.2.686 [place]YNN [phone] [facility] [address] OFFICE BUILDING 2022-02-24 2022-02-24 Telephone [facility] 1.2.840.114 [id number] Univers 00:00:00 00:00:00 [facility] 350.1.13.10 it y of [place]REG[place] 4.2.7.2.686 Emanuel as JOLLY?BLEA [phone] Nj gabi CHAIREZ [address] [place] [address] OFFICE [facility] 2022-02-23 2022-02-23 Telephone [facility] 1.2.840.114 [id number] [id number] Univers 00:00:00 00:00:00 [facility] 350.1.13.10 it y of [place] 4.2.7.2.686 Emanuel as JOLLY?BLEA [id number] Nj gabi CHAIREZ [address] [place] [address] OFFICE [facility] 2022-02-22 2022-02-22 Refill [facility] 1.2.840.114 [id number] Univers 00:00:00 00:00:00 Wondiful A HEALTH 350.1.13.10 ity of [place] 4.2.7.2.686 Emanuel as JOLLY?BLEA [phone] Nj gabi CHAIREZ [address] [place] [address] OFFICE [facility] 2022-02-18 2022-02-18 Patient [facility] 1.2.840.114 [id number] Univers 00:00:00 00:00:00 Secure Msg [facility] 350.1.13.10 ity of Edward JG 4.2.7.2.686 Emanuel as JOLLY?BLEA [phone] Nj gabi CHAIREZ [address] [place] [address] OFFICE [facility] 2022-02-18 2022-02-18 Telephone [facility] 1.2.840.114 [id number] [id number] Univers 00:00:00 00:00:00 Tray [place] 350.1.13.10 i ty of [place] 4.2.7.2.686 [place] ESSIO [id number] Nj gabi BARNEY [address] [place] [address] 2022-02-16 2022-02-16 Outpatient [facility] [id number] Univers 09:15:00 09:30:10 TRAY ity of [facility] 2022-02-16 2022-02-16 Office [facility] 1.2.840.114 [id number] Univers 09:15:00 09:30:10 Visit [facility] 350.1.13.10 it y of [place] 4.2.7.2.686 Emanuel as JOLLY?BLEA [phone] Nj gabi [address] MEDICAL OFFICE BUILDING 2022-02-16 2022-02-16 Outpatient R RIK [facility] [id number] Univers 09:15:00 09:15:00 TRAY flores [facility] 2022-02-16 2022-02-16 Telephone Vik Oliveira [facility] 1.2.840.114 [id number] Univers 00:00:00 00:00:00 HEALTH 350.1.13.10 it y of [place] 4.2.7.2.686 [place] [id number] [place] [address] OFFICE BUILDING 2022-02-15 2022-02-15 Outpatient R FLORENCE [facility] [id number] Univers 15:15:00 15:15:00 CAPRICE jay [facility] 2022-02-14 2022-02-14 Nurse CLAU Zarate 1.2.788.828 [id number] Univers 00:00:00 00:00:00 Triage Young GALICIA 350.1.13.10 it y of HOSPITAL 4.2.7.2.686 Emanuel as [phone] [address] 2022-02-12 2022-02-12 Telephone Rik [facility] 1.2.840.114 [id number] [id number] Univers 00:00:00 00:00:00 Tray HEALTH 350.1.13.10 it y of [place] 4.2.7.2.686 Emanuel as JOLLY?BLEA [id number] Nj gabi [address] OFFICE [facility] 2022-02-11 2022-02-11 Telephone Stella Worley [facility] 1.2.840.114 [id number] Univers 00:00:00 00:00:00 HEALTH 350.1.13.10 it y of [place] 4.2.7.2.686 [place] [id number] [address] OFFICE BUILDING 2022-02-11 2022-02-11 Telephone Vik Oliveira [facility] 1.2.840.114 [id number] Univers 00:00:00 00:00:00 HEALTH 350.1.13.10 it y of [place] 4.2.7.2.686 [place] [id number] [address] OFFICE [facility] 2022-02-10 2022-02-10 Outpatient R NAV ANTONIO [facility] [id number] Univers 00:00:00 00:00:00 ity of [facility] 2022-02-10 2022-02-10 Outpatient R MARISELA NAV [facility] [id number] Univers 00:00:00 00:00:00 ity of [facility] 2022-02-10 2022-02-10 Orders Doctor CLAU 1.2.840.114 [id number] Univers 00:00:00 00:00:00 Only Unassigned, GRAYSON 350.1.13.10 [place] [facility] 4.2.7.2.686 Emanuel as [id number] [address] 2022-02-08 2022-02-08 Outpatient R BRUNILDA STELLA [facility] [id number] Univers 10:00:00 11:34:48 STELLA WORLEY it y of [facility] 2022-02-08 2022-02-08 Office Stella Worley [facility] 1.2.840.114 [id number] Univers 10:00:00 11:34:48 Visit HEALTH 350.1.13.10 it y of [place] 4.2.7.2.686 [place] mitzy LYNN [id number] [address] OFFICE [facility] 2022-02-01 2022-02-01 Telephone Momo [facility] 1.2.620.428 [id number] [id number] Univers 00:00:00 00:00:00 Isac S HEALTH 350.1.13.10 it y of [place] 4.2.7.2.686 Emanuel as JOLLY?BLEA [phone] Nj gabi JACOBSKISHORE [address] [place] [address] OFFICE [facility] 2022-01-28 2022-01-28 Orders Doctor CLAU 1.2.840.114 [id number] Univers 00:00:00 00:00:00 Only Unassigned, GRAYSON 350.1.13.10 [place] [facility] 4.2.7.2.686 Emanuel as [phone] [address] 2022-01-27 2022-01-27 Telephone Rik [facility] 1.2.840.114 [id number] Univers 00:00:00 00:00:00 Tray [facility] 350.1.13.10 it y of [place] 4.2.7.2.686 Emanuel as JOLLY?BLEA [phone] [address] MEDICAL OFFICE [facility] 2022-01-27 2022-01-27 Telephone [facility] 1.2.840.114 [id number] [id number] Univers 00:00:00 00:00:00 Tray HEALTH 350.1.13.10 it y of [place] 4.2.7.2.686 Emanuel as JOLLY?BLEA [id number] [address] OFFICE [facility] 2022-01-27 2022-01-27 Telephone Vik Oliveira [facility] 1.2.840.114 [id number] Univers 00:00:00 00:00:00 HEALTH 350.1.13.10 it y of [place] 4.2.7.2.686 [place] [id number] [facility] [address] [place] OFFICE [facility] 2022-01-25 2022-01-25 Outpatient R [facility] [id number] Univers 10:20:49 23:59:00 MATEO flores of [facility] 2022-01-25 2022-01-25 [facility] 1.2.840.114 [id number] Univers 10:00:00 23:59:00 Encounter Mateo GREGORIO 350.1.13.10 ity of [place] 4.2.7.2.686 [place] [id number] [facility] [address] [place] 2022-01-25 2022-01-25 Outpatient R [facility] [id number] Univers 00:00:00 00:00:00 MATEO flores of [facility] 2022-01-25 2022-01-25 Orders Doctor OLGUIN 1.2.840.114 [id number] Univers 00:00:00 00:00:00 Only Unassigned, GRAYSON 350.1.13.10 [place] [facility] 4.2.7.2.686 Emanuel as [phone] [facility] [address] [place] 2022-01-22 2022-01-22 Telephone [facility] 1.2.840.114 [id number] [id number] Univers 00:00:00 00:00:00 Tray HEALTH 350.1.13.10 it y of [place] 4.2.7.2.686 Emanuel as JOLLY?BLEA [id number] [address] MEDICAL OFFICE [facility] 2022-01-22 2022-01-22 Orders Doctor CLAU 1.2.840.114 [id number] Univers 00:00:00 00:00:00 Only Unassigned, GRAYSON 350.1.13.10 [place] [facility] 4.2.7.2.686 Emanuel as [phone] [address] 2022-01-21 2022[facility]01-[facility].840.114 [id number] Univers 00:00:00 00:00:00 Wondiful A HEALTH 350.1.13.10 ity of [place] 4.2.7.2.686 Emanuel as JOLLY?BLEA [id number] [address] MEDICAL OFFICE [facility] 2022-01-20 2022-01-20 [facility] 1.2.840.114 [id number] Univers 00:00:00 00:00:00 Wondiful A HEALTH 350.1.13.10 ity of [place] 4.2.7.2.686 Emanuel as JOLLY?BLEA [phone] [address] OFFICE [facility] 2022-01-19 2022-01-19 Telephone [facility] 1.2.840.114 [id number] Univers 00:00:00 00:00:00 Tray HEALTH 350.1.13.10 it y of [place] 4.2.7.2.686 Emanuel as JOLLY?BLEA [id number] [address] OFFICE [facility] 2022-01-18 2022-01-18 [facility] 1.2.840.114 [id number] Univers 00:00:00 00:00:00 Tray HEALTH 350.1.13.10 it y of [place] 4.2.7.2.686 Emanuel as JOLLY?BLEA [phone] [employer] [facility] KNEY 044 [facility] OFFICE [facility] 2022-01-13 2022-01-13 Telephone [facility] 1.2.840.114 [id number] Univers 00:00:00 00:00:00 [facility] 350.1.13.10 i ty [facility] 4.2.7.2.686 [place] mitzy PROFESSIO [id number] Nj gabi BARNEY [address] [facility] 2022-01-11 2022-01-11 Outpatient Brock BARR [facility] [id number] Univers 14:45:00 23:59:00 [facility] 2022-01-11 2022-01-11 [facility]patient [facility] [id number] Univers 14:45:00 23:59:00 [facility] 2022-01-11 2022-01-11 Office [facility] 1.2.840.114 [id number] Univers 13:45:00 14:00:00 Visit [facility] 350.1.13.10 it y of [place] 4.2.7.2.686 Emanuel as JOLLY?BLEA [id number] Nj dicroshan CHAIREZ 198 [facility] OFFICE [facility] 2022-01-11 2022-01-11 Outpatient Brock BARR [facility] [id number] Univers 13:45:00 13:45:00 [facility] 2022-01-07 2022-01-07 Telephone [facility] 1.2.840.114 [id number] Univers 00:00:00 00:00:00 Tray HEALTH 350.1.13.10 it y of [place] 4.2.7.2.686 Emanuel as JOLLY?BLEA [phone] Nj dicroshan CHAIREZ 044 [facility] OFFICE [facility] 2022-01-06 2022-01-06 Telephone [facility] 1.2.840.114 [id number] [id number] Univers 00:00:00 00:00:00 Wondiful A HEALTH 350.1.13.10 [facility]y [facility] 4.2.7.2.686 Emanuel as JOLLY?BLEA [id number] Nj dical CONTRERAS 044 [facility] OFFICE [facility] 2022-01-052022-01-05 Telephone [facility] 1.2.840.114 [id number] Univers 00:00:00 00:00:00 Tray HEALTH 350.1.13.10 it y of [place] 4.2.7.2.686 Emanuel as JOLLY?BLEA [id number] Nj gabi CHAIREZ [address] [place] [address] OFFICE [facility] 2022-01-04 2022-01-04 Telephone [facility] 1.2.840.114 [id number] Univers 00:00:00 00:00:00 Tray HEALTH 350.1.13.10 it y of [place] 4.2.7.2.686 Emanuel as JOLLY?BLEA [phone] Nj gabi CHAIREZ [address] [place] [address] OFFICE [facility] 2021-12-31 2021-12-31 [facility] 1.2.840.114 [id number] Univers 00:00:00 00:00:00 Tray HEALTH 350.1.13.10 it y of [place] 4.2.7.2.686 Emanuel as JOLLY?BLEA [id number] Nj gabi CHAIREZ [address] [place] [address] OFFICE [facility] 2021-12-31 2021-12-31 [facility] 1.2.840.114 [id number] Univers 00:00:00 00:00:00 Tray HEALTH 350.1.13.10 it y of [place] 4.2.7.2.686 Emanuel as JOLLY?BLEA [phone] Nj gabi CHAIREZ [address] [place] [address] 2021-12-30 2021-12-30 Patient [facility] 1.2.840.114 [id number] Univers 00:00:00 00:00:00 Outreach Genesis Alyssa HEALTH 350.1.13.10 ity of [place] 4.2.7.2.686 Emanuel as PROFESSIO [phone] Nj gabi [address] ONE 2021-12-28 2021-12-28 Outpatient Brock MÁRQUEZ [facility] [id number] Univers 09:30:00 10:07:08 CECILE flores of [facility] 2021-12-28 2021-12-28 Outpatient R [facility] [id number] Univers 09:30:00 10:07:08 CECILE itjay of [facility] 2021-12-28 2021-12-28 Office [facility] 1.2.518.861 [id number] [id number] [facility] 09:30:00 10:07:08 Visit Cecile GREGORIO 350.1.13.10 i ty of [place] 4.2.7.2.686 [place] [id number] [address] 2021-12-24 2021-12-24 Outpatient R [facility] [id number] Univers 14:00:00 14:00:00 ity of [facility] 2021-12-24 2021-12-24 Patient [facility] 1.2.840.114 [id number] Univers 00:00:00 00:00:00 [facility] 350.1.13.10 ity of [place] 4.2.7.2.686 Emanuel as JOLLY?BLEA [id number] [address] OFFICE [facility] 2021-12-22 2021-12-22 Telephone [facility] 1.2.840.114 [id number] Univers 00:00:00 00:00:00 Cecile GREGORIO 350.1.13.10 i ty of [place] 4.2.7.2.686 [place] [id number] [address] 2021-12-16 2021-12-16 Telephone [facility] 1.2.840.114 [id number] [id number] Univers 00:00:00 00:00:00 [facility] 350.1.13.10 it y of [place] 4.2.7.2.686 Emanuel as JOLLY?BLEA [id number] [address] OFFICE [facility] 2021-12-11 2021-12-11 Surgery [facility] 1.2.961.125 9131 9758 Univers 10:33:00 11:46:00 Cecile GREGORIO 350.1.13.10 i ty of [place] 4.2.7.2.686 [place] SURGICAL [id number] [facility] [address] [place] 2021-12-11 2021-12-11 Surgery [facility] 1.2.656.746 [id number] 9758 Univers 10:33:00 11:46:00 Cecile GREGORIO 350.1.13.10 i ty of [place] 4.2.7.2.686 [place] SURGICAL [id number] [facility] [address] [place] 2021-12-11 2021-12-11 Surgery [facility] 1.2.717.529 7533 9758 Univers 10:33:00 11:46:00 Cecile GREGORIO 350.1.13.10 i ty of [place] 4.2.7.2.686 [place] SURGICAL [id number] [facility] [address] [place] 2021-12-11 2021-12-11 Outpatient R [facility] MARCUS [id number] Univers 08:40:00 11:25:00 CECILE [facility] 2021-12-11 2021-12-11 [facility] 1.2.840.114 [id number] Univers 08:40:00 11:25:00 Encounter Cecile JG 350.1.13.10 ity of [place] 4.2.7.2.686 [place] SURGICAL [id number] [facility] [address] [place] 2021-12-11 2021-12-11 Outpatient R [facility] [id number] Univers 08:40:00 11:25:00 [facility] 2021-12-11 2021-12-11 Outpatient R [facility] [id number] Univers 08:40:00 11:25:00 CECILE [facility] 2021-12-11 2021-12-11 Orders Doctor OLGUIN 1.2.840.114 [id number] Univers 00:00:00 00:00:00 Only Unassigned, GRAYSON 350.1.13.10 [facility] 4.2.7.2.686 Emanuel as [id number] [address] 2021-12-09 2021-12-09 Telephone [facility] 1.2.840.114 [id number] [id number] Univers 00:00:00 00:00:00 Wondiful A HEALTH 350.1.13.10 ity of [place] 4.2.7.2.686 Emanuel as JOLLY?BLEA [id number] Nj gabi CHAIREZ 198 [facility] OFFICE [facility] 2021-12-08 2021-12-08 Outpatient R [facility] [id number] Univers 13:00:00 13:00:00 ity of [facility] 2021-12-08 2021-12-08 Telephone [facility] 1.2.840.114 [id number] Univers 00:00:00 00:00:00 Tray HEALTH 350.1.13.10 it y of [place] [facility] 4.2.7.2.686 Emanuel as JOLLY?BLEA [id number] Nj gabi CHAIREZ [address] [facility] 2021-12-08 2021-12-08 Telephone [facility] 1.2.840.114 [id number] [id number] Univers 00:00:00 00:00:00 Tray HEALTH 350.1.13.10 it y of [place] [facility] 4.2.7.2.686 Emanuel as JOLLY?BLEA [id number] Nj gabi CHAIREZ [address] [facility] 2021-12-03 2021-12-03 Outpatient R [facility] [id number] 63336 [facility] 13:30:00 13:30:00 ORPHEUS ity of [facility] 2021-12-03 2021-12-03 Telephone [facility] 1..840.114 [id number] Univers 00:00:00 00:00:00 Cecile GREGORIO 350.1.13.10 i ty of [place] 4.2.7.2.686 [place] [id number] Nj gabi BARNEY 188 [facility] 2021-12-03 2021-12-03 Telephone [facility] 1.2.840.114 [id number] Univers 00:00:00 00:00:00 Wondiful A HEALTH 350.1.13.10 ity [facility] 4.2.7.2.686 Emanuel as PROFESSIO [phone] Nj dicroshan BARNEY 044 [facility] ONE 2021-12-01 2021-12-01 Outpatient R NISA, [facility] [id number] Univers 14:15:00 14:54:12 WONDIFUL ity o f [facility] 2021-12-01 2021-12-01 Office [facility] 1.2.840.114 [id number] Univers 14:15:00 14:54:12 Visit Wonoscarful A HEALTH 350.1.13.10 ity of [place] 4.2.7.2.686 Emanuel as JOLLY?BLEA [phone] Nj gabi CHAIREZ [address] [place] [address] MEDICAL OFFICE BUILDING 2021-12-01 2021-12-01 Outpatient R NISA, [facility] [id number] Univers 14:15:00 14:54:12 WONDIFUL ity o f [facility] 2021-12-01 2021-12-01 Patient [facility] 1.2.840.114 [id number] Univers 00:00:00 00:00:00 Outreach Vik Bernadette HEALTH 350.1.13.10 i ty of [place] 4.2.7.2.686 Emanuel as JOLLY?BLEA [id number] Nj gabi CHAIREZ [address] [place] [address] MEDICAL OFFICE BUILDING 2021-12-01 2021-12-01 [facility] 1.2.840.114 [id number] Univers 00:00:00 00:00:00 Outreach Vik Fleming HEALTH 350.1.13.10 i ty of [place] 4.2.7.2.686 Emanuel as JOLLY?BLEA [id number] Nj gabi CHAIREZ [address] [place] [address] MEDICAL OFFICE BUILDING 2021-11-18 2021-11-18 Outpatient R NISA [facility] [id number] Univers 10:00:00 10:44:34 WONDIFUL ity o f [facility] 2021-11-18 2021-11-18 Outpatient R NISA [facility] [id number] Univers 10:00:00 10:44:34 WONDIFUL ity o f [facility] 2021-11-18 2021-11-18 Outpatient R NISA [facility] [id number] Univers 10:00:00 10:00:00 WONDIFUL ity o f [facility] 2021-11-18 2021-11-18 Outpatient R NISA [facility] [id number] Univers 10:00:00 10:00:00 WONDIFUL ity o f [facility] 2021-11-18 2021-11-18 Outpatient R NISA [facility] [id number] Univers 10:00:00 10:00:00 WONDIFUL ity o f [facility] 2021-11-16 2021-11-16 Outpatient R WILLI [facility] [id number] Univers 09:30:00 09:30:00 CECILE jay [facility] 2021-11-16 2021-11-16 Outpatient R WILLI [facility] [id number] Univers 09:30:00 09:30:00 CECILE jay [facility] 2021-11-16 2021-11-16 Outpatient R WILLI [facility] [id number] Univers 09:30:00 09:30:00 CECILE [facility] 2021-11-15 2021-11-15 [facility] [id number] Univers 09:06:00 12:49:00 DESTINY [facility] 2021-11-15 2021-11-15 [facility] [id number] Univers 09:06:00 12:49:00 Destiny [place] [id number] i ty [facility] [id number] [place] [facility] [phone] [address] 2021-11-15 2021-11-15 [facility] [id number] Univers 09:06:00 12:49:00 DESTINY [facility] 2021-11-10 2021-11-10 Telephone Nisa [facility] [id number] Univers 00:00:00 00:00:00 Wondiful A HEALTH [id number] ity [facility] [id number] Emanuel as JOLLY?BLEA [phone] Nj gabi JACOBS[address] MEDICAL OFFICE BUILDING 2021-11-05 2021-11-05 Orders Doctor CLAU [id number] Univers 00:00:00 00:00:00 Only Unassigned, GRAYSON [id number] ity of [facility] [id number] Emanuel as [phone] [address] 2021-11-05 2021-11-05 Telephone [facility] [id number] Univers 00:00:00 00:00:00 Wondiful A HEALTH [id number] ity of [place] [id number] Emanuel as JOLLY?BLEA [phone] [address] MEDICAL OFFICE [facility] 2021-11-03 2021-11-03 Telephone [facility] 1.2.840.114 [id number] Univers 00:00:00 00:00:00 Wondiful A HEALTH [id number] ity of [place] [id number] Emanuel as JOLLY?BLEA [phone] [address] OFFICE [facility] 2021-11-03 2021-11-03 Telephone [facility] 1.2.840.114 [id number] Univers 00:00:00 00:00:00 Wondiful A HEALTH [id number] ity of [place] [id number] Emanuel as JOLLY?BLEA [phone] [address] [place]ICE [place] [facility] 2021-10-27 2021-10-27 Case Sanjay Sánchez 1.2.840.114 [id number] Univers 00:00:00 00:00:00 Management H 350.1.13.10 ity of [facility] 4.2.7.2.686 Emanuel as [id number] [address] 2021-10-26 2021-10-26 Telephone Sanjay Sánchez 1.2.840.114 [id number] Univers 00:00:00 00:00:00 H 350.1.13.10 it y of [facility] 4.2.7.2.686 Emanuel as [phone] [address] 2021-10-23 2021-10-23 Telephone [facility] [id number] Univers 00:00:00 00:00:00 Corry GREGORIO 350.1.13.10 ity of [place] [phone] Nj dical [facility] [address] [facility] 2021-10-22 2021-10-22 Outpatient [facility] [id number] Univers 14:45:00 14:45:00 ISAC ity [facility] 2021-10-22 2021-10-22 Outpatient [facility] [id number] Univers 14:45:00 14:45:00 ISAC ity [facility] 2021-10-22 2021-10-22 Outpatient Brock BARR [facility] [id number] Univers 14:45:00 14:45:00 ISAC ity [facility] 2021-10-22 2021-10-22 Outpatient [facility] [id number] Univers 14:45:00 14:45:00 [facility] 2021-10-19 2021-10-19 Telephone [facility] 1.2.840.114 [id number] Univers 00:00:00 00:00:00 Wondiful A HEALTH 350.1.13.10 ity [facility] 4.2.7.2.686 Emanuel as JOLLY?BLEA [phone] [address] MEDICAL OFFICE BUILDING 2021-10-13 2021-10-13 Outpatient [facility] [id number] Univers 10:30:00 10:41:12 CORRY ity [facility] 2021-10-13 2021-10-13 Office [facility] 1.2.840.114 [id number] Univers 10:30:00 10:41:12 Visit Corry GREGORIO 350.1.13.10 ity [facility] [place]2.7.2.[place] [id number] Nj dicca NAL [address] [facility] 2021-10-13 2021-10-13 Outpatient [facility] [id number] Univers 10:30:00 10:41:12 CORRY ity [facility] 2021-09-29 2021-09-29 Outpatient Brock HENRIQUEZ [facility] [id number] Univers 16:14:01 23:59:00 CAPRICE flores [facility] 2021-09-29 2021-09-29 Outpatient Brock HENRIQUEZ [facility] [id number] Univers 16:14:01 23:59:00 CAPRICE flores [facility] 2021-09-29 2021-09-29 Hospital [facility] 1.2.840.114 [id number] Univers 16:14:01 23:59:00 Encounter Caprice Fleming HEALTH 350.1.13.10 ity of [place] 4.2.7.2.686 Emanuel as JOLLY?BLEA [phone] [facility]ACOBS [address] MEDICAL OFFICE [facility] 2021-09-29 2021-09-29 Outpatient Brock [facility] [id number] Univers 16:14:01 23:59:00 CAPRICE flores [facility] 2021-09-29 2021-09-29 Office [facility] 1.2.840.114 [id number] Univers 16:00:00 16:58:02 Visit [facility] 350.1.13.10 it y of [place] 4.2.7.2.686 Emanuel as JOLLY?BLEA [phone] Nj samirroshan JACOBS [address] MEDICAL OFFICE [facility] 2021-09-29 2021-09-29 Outpatient [facility] [id number] Univers 16:00:00 16:58:02 ISAC [facility] 2021-09-29 2021-09-29 Outpatient Brock BARR [facility] [id number] Univers 16:00:00 16:58:02 ISAC jay [facility] 2021-09-29 2021-09-29 Outpatient Brock BARR [facility] [id number] Univers 16:00:00 16:00:00 [facility] 2021-09-24 2021-09-24 Outpatient [facility] [id number] Univers 14:00:00 14:00:00 [facility] 2021-09-19 2021-09-19 Caprice Paz 1.2.840.114 [id number] Univers 00:00:00 00:00:00 Triage GRAYSON 350.1.13.10 [facility] 4.2.7.2.686 Emanuel as [id number] [facility] [address] [place] 2021-09-09 2021-09-09 Prep For Jaymie [facility] 1.2.840.114 [id number] Univers 00:00:00 00:00:00 Surgery Corry Adams JG 350.1.13.10 ity of [place] [phone] Nj dical NAL 204 [facility] 2021-09-08 2021-09-08 Office M[facility] 1.2.508.718 [id number] Univers 14:30:00 16:16:36 Visit Cecile JG 350.1.13.10 i ty of [place] [id number] Nj dical NAL 188 [facility] 2021-09-08 2021-09-08 Outpatient R WILLI [facility] [id number] Univers 14:30:00 16:16:36 CECILE alanjay [facility] 2021-09-08 2021-09-08 Outpatient [facility] [id number] Univers 14:30:00 16:16:36 CECILE phillipsjay [facility] 2021-09-08 2021-09-08 Outpatient R WILLI [facility] [id number] Univers 14:30:00 14:30:00 CECILE phillipsjay [facility] 2021-09-08 2021-09-08 Orders Doctor OLGUIN 1.2.840.114 [id number] Univers 00:00:00 00:00:00 Only Unassigned, GRAYSON 350.1.13.10 ity of [place] [facility] 4.2.7.2.686 Emanuel as [id number] [facility] [address] [place] 2021-09-02 2021-09-02 Outpatient R FLORENCE [facility] [id number] Univers 14:00:00 14:00:00 CAPRICE flores [facility] 2021-08-31 2021-08-31 Orders Doctor CLAU 1.2.840.114 [id number] Univers 00:00:00 00:00:00 Only Unassigned, GRAYSON 350.1.13.10 ity of [place] [facility] 4.2.7.2.686 Emanuel as [id number] [address] 2021-08-26 2021-08-26 Outpatient R NISA [facility] [id number] Univers 10:45:00 11:58:51 WONDIFUL ity o f [facility] 2021-08-26 2021-08-26 Outpatient R NISA [facility] [id number] Univers 10:45:00 11:58:51 WONDIFUL ity o f [facility] 2021-08-26 2021-08-26 Outpatient R NISA [facility] [id number] Univers 10:45:00 11:58:51 WONDIFUL ity o f [facility] 2021-08-26 2021-08-26 Out[facility] [id number] Univers 10:45:00 11:58:51 WONDIFUL ity o [facility] 2021-08-26 2021-08-26 Office [facility] 1.2.840.114 [id number] Univers 10:34:47 11:58:51 Visit Wondiful A HEALTH 350.1.13.10 ity of [place] 4.2.7.2.686 Emanuel as JOLLY?BLEA [phone] [address] MEDICAL OFFICE [facility] 2021-08-17 2021-08-17 Case [facility] 1.2.840.114 [id number] Univers 00:00:00 00:00:00 Management Wondiful A HEALTH 350.1.13.10 [facility] 4.2.7.2.686 Emanuel as JOLLY?BLEA [phone] [address] MEDICAL OFFICE [facility] 2021-08-13 2021-08-13 Outpatient Brock [facility] [id number] Univers 07:58:20 23:59:00 WONDIFUL ity o [facility] 2021-08-13 2021-08-13 Hospital Nisa [facility] [id number] [id number] Univers 07:58:20 23:59:00 Encounter Bunnydiful Bryan [place] 350.1.13.10 ity of [place].2.[place] [id number] [facility] [address] [place] 2021-08-13 2021-08-13 Outpatient R NISA [facility] [id number] Univers 07:58:20 23:59:00 WONDIFUL ity o f [facility] 2021-08-13 2021-08-13 Gear Roller Zachariah, Adc Lab Main [facility] 1.2.8 40.114 [id number] Univers 07:57:57 08:12:57 Visit Andrea Paula 350.1.13. 10 ity [facility] 4.2.7.2.686 [facility] s [facility] [phone] Nj dical [facility] [address] [facility] 2021-08-13 2021-08-13 Outpatient Brock PAULA [facility] [id number] Univers 00:00:00 00:00:00 WONDIFUL ity o f [facility] 2021-08-04 2021-08-04 Outpatient R NISA [facility] [id number] Univers 15:30:00 15:42:52 WONDIFUL ity o f [facility] 2021-08-04 2021-08-04 Outpatient R NISA [facility] [id number] Univers 15:30:00 15:42:52 WONDIFUL ity o f [facility] 2021-08-04 2021-08-04 Outpatient R NISA [facility] [id number] Univers 15:30:00 15:42:52 WONDIFUL ity o f [facility] 2021-08-04 2021-08-04 Outpatient R NISA [facility] [id number] Univers 15:30:00 15:42:52 WONDIFUL ity o f [facility] 2021-08-04 2021-08-04 Outpatient R NISA [facility] [id number] Univers 15:30:00 15:42:52 WONDIFUL ity o f [facility] 2021-08-04 2021-08-04 Office Nisa [facility] 1.2.840.114 [id number] Univers 14:30:05 15:42:52 Visit Wondiful A HEALTH 350.1.13.10 ity of [place] 4.2.7.2.686 Emanuel as JOLLY?BLEA [id number] Nj samirroshan ARLENEKISHORE [address] MEDICAL OFFICE BUILDING 2021-08-04 2021-08-04 Out[facility] [id number] Univers 15:30:00 15:30:00 WONDIFUL ity o f [facility] 2021-08-03 2021-08-03 Pre Visit CLAU Edmondson 1.2.840.114 [id number] Univers 00:00:00 00:00:00 Outreach Jorge GALICIA 350.1.13.10 i ty [facility] 4.2.7.2.686 Emanuel as [phone] [address] 2021-07-15 2021-07-15 Outpatient [facility] [id number] Univers 14:20:00 14:20:00 SHORTY ity o [facility] 2021-07-15 2021-07-15 [facility] [id number] Univers 14:20:00 14:20:00 SHORTY ity o [facility] 2021-07-15 2021-07-15 Outpatient [facility] [id number] Univers 14:20:00 14:20:00 SHORTY ity o [facility] 2021-07-15 2021-07-15 Outpatient R BATAVIA [facility] [id number] Univers 14:20:00 14:20:00 SHORTY ity o [facility] 2021-07-14 2021-07-14 Refill [facility] 1.2.840.114 [id number] Univers 00:00:00 00:00:00 Wondiful A Health 350.1.13.10 ity of [place] 4.2.7.2.686 Emanuel as Professio [phone] Nj samirroshan tavon [address] [place] [address] Office Building One 2021-07-10 2021-07-10 Outpatient Kautz_S DMG DMG [id number] Devoted 05:13:00 05:13:00 1015 [facility]ica l [facility] 2021-07-02 2021-07-02 Refill Nisa NJFRANDY 1.2.840.114 [id number] Univers 00:00:00 00:00:00 Wondiful A Health 350.1.13.10 ity of [place] 4.2.7.2.686 Emanuel as Professio [phone] Nj dical nal [address] Office [facility] 2021-06-15 2021-06-15 Orders Doctor CLAU 1.2.840.114 [id number] Univers 00:00:00 00:00:00 Only Unassigned, GRAYSON 350.1.13.10 ity of [place] [facility] 4.2.7.2.686 Emanuel as [id number] [facility] [address] 2021-06-08 2021-06-08 Patient RadhaNicolasberta 1.2.840.114 [id number] Univers 00:00:00 00:00:00 Outreach Emily Chahal Chavarria 350.1.13.10 ity of [place].2.[place] [phone] [facility] [address] 2021-06-08 2021-06-08 Refill Vik Oliveira [facility] 1.2.840.114 [id number] Univers 00:00:00 00:00:00 Health 350.1.13.10 it y of [place] [phone] [facility] [address] Office Building 2021-05-25 2021-05-25 Emergency X [facility] ERT [id number] Univers 18:22:00 20:23:00 LAUREEN ity [facility] 2021-05-25 2021-05-25 Emergency X [facility] ERT [id number] Univers 18:22:00 20:23:00 LAUREEN ity [facility] 2021-05-25 2021-05-25 Emergency X [facility] ERT [id number] Univers 18:22:00 20:23:00 LAUREEN ity [facility] 2021-05-25 2021-05-25 Emergency X DREVER, [facility] ERT [id number] Univers 18:22:00 20:23:00 LAUREEN ity of [facility] 2021-05-25 2021-05-25 Emergency X DREVER, [facility] ERT [id number] Univers 18:22:00 20:23:00 LAUREEN ity [facility] 2021-05-25 2021-05-25 Emergency [facility], [facility] 1.2.186.527 [id number] Univers 18:22:00 20:23:00 Laureen Truong [place] 350.1.13.10 ity [facility] 4.2.7.2.686 [facility] [phone] [address] 2021-05-21 2021-05-21 Outpatient LAILA GOODWIN [facility] [id number] Univers 09:30:00 09:30:00 LAILA ORELLANA [facility] 2021-05-19 2021-05-19 Susan [facility] 1.2.840.114 [id number] Univers 00:00:00 00:00:00 [facility] A [facility] 350.1.13.10 ity [facility] 4.2.7.2.686 [facility] [phone] [address] Office [facility] One 2021-05-14 2021-05-14 Outpatient SANJAY DIAZ [facility] [id number] Univers 09:00:00 09:00:00 ity [facility] 2021-05-09 2021-05-09 [place]patient DMG DM [id number] Devoted 11:00:00 11:00:00 0814 Medica l Group 2021-05-08 2021-05-08 Outpatient Brock HENRIQUEZ [facility] [id number] Univers 07:37:21 23:59:00 CAPRICE flores [facility] 2021-05-08 2021-05-08 Outpatient Brock HENRIQUEZ [facility] [id number] Univers 07:37:21 23:59:00 CAPRICE flores [facility] 2021-05-08 2021-05-08 Outpatient Brock HENRIQUEZ [facility] [id number] Univers 07:37:21 23:59:00 CAPRICE flores [facility] 2021-05-08 2021-05-08 Outpatient R FLORENCE, [facility] [id number] Univers 07:37:21 23:59:00 CAPRICE flores [facility] 2021-05-08 2021-05-08 Outpatient Brock BARR [facility] [id number] Univers 08:15:00 08:15:00 ISAC itjay [facility] 2021-05-07 2021-05-07 Outpatient DMG DMG [id number] Devoted 12:00:00 12:00:00 0812 Medica l Group 2021-04-27 2021-04-27 Susan [facility] 1.2.840.114 [id number] Univers 00:00:00 00:00:00 [facility] 350.1.13.10 it y of [place] 4.2.7.2.686 Emanuel as PROFESSIO [phone] Nj dical [address] OFFICE BUILDING ONE 2021-04-21 2021-04-21 Outpatient R NISA [facility] [id number] Univers 15:45:00 15:45:00 WONDIFUL itjay o f [facility] 2021-04-07 2021-04-07 Outpatient R ELISHA [facility] [id number] Univers 09:20:00 09:20:00 RD mark [facility] 2021-04-02 2021-04-02 Outpatient Brock BARR [facility] [id number] Univers 08:45:00 08:45:00 ISAC mark [facility] 2021-04-01 2021-04-01 Emergency X NINO, [facility] ERT [id number] Univers 13:00:00 15:36:00 DESTINY alanjay [facility] 2021-04-01 2021-04-01 Emergency X NINO [facility] ERT [id number] Univers 13:00:00 15:36:00 DESTINY phillipsjay [facility] 2021-04-01 2021-04-01 Emergency X NINO [facility] ERT [id number] Univers 13:00:00 15:36:00 DESTINY phillipsjay [facility] 2021-04-012021-04-01 Outpatient R [facility] [id number] Univers 08:45:00 08:45:00 ity [facility] 2021-03-28 2021-03-28 Outpatient R BELLA, [facility] [id number] Univers 09:40:00 09:40:00 CHELA phillipsy o f [facility] 2021-03-27 2021-03-27 Outpatient R WIL, [facility] [id number] Univers 09:30:00 09:30:00 MATEO jay [facility] 2021-03-26 2021-03-26 Outpatient R MOMO, [facility] [id number] Univers 15:15:00 15:15:00 ISAC [facility] 2021-03-25 2021-03-25 Outpatient Brock COON, [facility] [id number] Univers 08:30:00 08:30:00 CORRY [facility] 2021-03-23 2021-03-23 Outpatient R STEFFANIE, [facility] [id number] Univers 08:00:00 08:00:00 EMERY ity o f [facility] 2021-03-20 2021-03-20 Emergency X STEPHEN, K [facility] ERT [id number] Univers 19:09:00 19:47:00 ity [facility] 2021-03-20 2021-03-20 Emergency X STEPHEN, K [facility] ERT [id number] Univers 19:09:00 19:47:00 [facility] 2021-03-20 2021-03-20 Emergency X STEPHEN, K [facility] ERT [id number] Univers 19:09:00 19:47:00 ity [facility] 2021-03-18 2021-03-18 Outpatient R FLORENCE, [facility] NUT [id number] Univers 00:00:00 00:00:00 CAPRICE [facility] 2021-03-12 2021-03-12 Outpatient Brock BARR, [facility] [id number] Univers 08:30:00 08:30:00 ISAC [facility] 2021-03-11 2021-03-11 Outpatient Brock BARR, [facility] [id number] Univers 16:15:00 16:15:00 ISAC itjay [facility] 2021-03-10 2021-03-10 Susan [facility] 1.2.840.114 [id number] Univers 00:00:00 00:00:00 [facility] 350.1.13.10 it y of [place] 4.2.7.2.686 Laura forrester LYNN [id number] [facility] [address] OFFICE BUILDING 2021-02-25 2021-02-25 Outpatient Brock BARR [facility] [id number] Univers 14:30:00 14:30:00 ISAC jay [facility] 2021-02-25 2021-02-25 Telephone [facility] 1.2.644.620 [id number] 00:00:00 00:00:00 Ricardo Gregorio 350.1.13.10 [place] 4.2.7.2.686 [facility] [phone] nal 9 [facility] 2021-02-24 2021-02-24 Outpatient R NISA [facility] [id number] Univers 11:00:00 11:00:00 WONDIFUL ity o f [facility] 2021-02-19 2021-02-19 Outpatient R FLORENCE [facility] [id number] Univers 10:03:49 23:59:00 CAPRICE jay [facility] 2021-02-19 2021-02-19 Outpatient R FLORENCE [facility] [id number] Univers 00:00:00 00:00:00 CAPRICE jay [facility] 2021-02-17 2021-02-17 Outpatient R [facility] [id number] Univers 17:40:00 17:40:00 ity [facility] 2021-02-17 2021-02-17 Outpatient Brock TENORIO [facility] [id number] Univers 17:40:00 17:17:33 ORGE ity [facility] 2021-02-17 2021-02-17 Outpatient Brock TENORIO [facility] [id number] Univers 17:40:00 17:17:33 ROGE itjay [facility] 2021-02-17 2021-02-17 Outpatient R JONA [facility] [id number] Univers 17:40:00 17:17:33 ROGE [facility] 2021-02-10 2021-02-10 Outpatient R ATUL [facility] [id number] Univers 09:00:00 09:00:00 [facility] 2021-02-09 2021-02-09 Outpatient R MOMO [facility] [id number] Univers 14:45:00 [facility]:45[facility] 2021-02-09 Outpatient Brock BARR [facility] [id number] Univers 14:45:00 14:45:00 [facility] 2021-02-04 2021-02-04 Out[facility] [id number] Univers 10:30:00 10:30:00 SOTO [facility] 2021-02-03 2021-02-03 Outpatient R NISA [facility] [id number] Univers 16:30:00 16:30:00 WONDIFUL ity o f [facility] 2021-01-27 2021-01-27 Outpatient R NAV ANTONIO [facility] [id number] Univers 15:00:00 15:00:00 [facility] 2021-01-21 2021-01-21 Outpatient R ATUL [facility] [id number] Univers 11:00:00 11:00:00 SENDIL [facility] 2021-01-20 2021-01-20 Outpatient R SANJAY SÁNCHEZ [facility] [id number] Univers 11:00:00 11:00:00 [facility] 2021-01-14 2021-01-14 Outpatient R RIK [facility] [id number] Univers 10:45:00 10:45:00 TRAY [facility] 2021-01-08 2021-01-08 Outpatient R MOMO [facility] [id number] Univers 08:45:00 08:45:00 [facility] 2021-01-06 2021-01-06 Outpatient R AIMEE [facility] [id number] Univers 11:00:00 11:00:00 SHORTY ity o f [facility] 2021-01-01 2021-01-01 Outpatient R NISA, [facility] [id number] Univers 15:00:00 15:00:00 WONDIFUL ity o f [facility] 2021-01-01 2021-01-01 Outpatient R NISA, [facility] [id number] Univers 15:00:00 15:00:00 WONDIFUL ity o f [facility] 2021-01-01 2021-01-01 Outpatient R NISA, [facility] [id number] Univers 15:00:00 15:00:00 WONDIFUL ity o f [facility] 2021-01-01 2021-01-01 Outpatient R NISA, [facility] [id number] Univers 15:00:00 15:00:00 WONDIFUL ity o f [facility] 2020-12-13 2020-12-13 Outpatient [facility] [id number] Univers 08:25:00 08:25:00 ity [facility] 2020-12-13 2020-12-13 Outpatient R BELGICA, [facility] [id number] Univers 08:25:00 08:25:00 TAMMY [facility] 2020-12-13 2020-12-13 Outpatient R BELGICA, [facility] [id number] Univers 08:25:00 08:25:00 TAMMY [facility] 2020-12-13 2020-12-13 Outpatient R BELGICA, [facility] [id number] Univers 08:25:00 08:25:00 TAMMY [facility] 2020-12-02 2020-12-02 Outpatient R JAKE, [facility] [id number] Univers 09:00:00 09:00:00 LIANA [facility] 2020-12-02 2020-12-02 Outpatient R JAKE, [facility] [id number] Univers 09:00:00 09:00:00 LIANA [facility] 2020-12-02 2020-12-02 Outpatient R JAKE, [facility] [id number] Univers 09:00:00 09:00:00 [facility] 2020-12-02 2020-12-02 Outpatient R JAKE, [facility] [id number] Univers 09:00:00 09:00:00 [facility] 2020-11-22 2020-11-22 Outpatient R BELGICA [facility] [id number] Univers 09:40:00 09:40:00 [facility] 2020-11-22 2020-11-22 Outpatient R BELGICA [facility] [id number] Univers 09:40:00 09:40:00 TAMMY [facility] 2020-11-22 2020-11-22 Outpatient R BELGICA [facility] [id number] Univers 09:40:00 09:40:00 [facility] 2020-11-21 2020-11-21 Outpatient R DONOVAN [facility] [id number] Univers 14:00:00 14:00:00 LAKISHA [facility] 2020-11-20 2020-11-20 Outpatient R LAILA ORELLANA [facility] [id number] Univers 15:00:00 15:00:00 LAILA ORELLANA [facility] 2020-11-09 2020-11-09 Outpatient R ELISHA [facility] [id number] Univers 08:20:00 08:20:00 [facility] 2020-11-09 2020-11-09 Outpatient R ELISHA [facility] [id number] Univers 08:20:00 08:20:00 [facility] 2020-11-09 2020-11-09 Outpatient R ELISHA [facility] [id number] Univers 08:20:00 08:20:00 [facility] 2020-11-07 2020-11-07 Outpatient R VIK OLIVEIRA [facility] [id number] Univers 11:30:00 11:30:00 [facility] 2020-11-06 2020-11-06 Outpatient Brock PAULA [facility] [id number] Univers 08:15:00 08:15:00 WONDIFUL ity [facility] 2020-10-16 2020-10-16 Outpatient R ELISHA, [facility] [id number] Univers 18:00:00 18:00:00 RD itjay [facility] 2020-10-02 2020-10-02 Outpatient R BARR, [facility] [id number] Univers 10:15:00 10:15:00 ISAC itjay [facility] 2020-09-22 2020-09-22 Outpatient R SELF, [facility] [id number] Univers 08:00:00 08:00:00 EMERY ity o f [facility] 2020-09-15 2020-09-15 Outpatient R NISA, [facility] [id number] Univers 00:00:00 00:00:00 WONDIFUL ity o f [facility] 2020-09-15 2020-09-15 Outpatient R NISA, [facility] [id number] Univers 00:00:00 00:00:00 WONDIFUL ity o f [facility] 2020-09-14 2020-09-14 Outpatient R JONA, [facility] [id number] Univers 08:40:00 08:40:00 ROGE [facility] 2020 2020 Outpatient R NISA, [facility] [id number] Univers 00:00:00 00:00:00 WONDIFUL ity o f [facility] 2020-09-10 2020-09-10 Outpatient R DONITA, [facility] [id number] Univers 08:00:00 08:00:00 SHANTI ity [facility] 2020-09-08 2020-09-08 Outpatient R SELF, [facility] [id number] Univers 08:00:00 08:00:00 EMERY ity o f [facility] 2020-09-04 2020-09-04 Outpatient R NISA, [facility] [id number] Univers 16:00:00 16:00:00 WONDIFUL ity o f [facility] 2020-08-25 2020-08-25 Outpatient R NISA, [facility] [id number] Univers 11:00:00 11:13:03 WONDIFUL ity o f [facility] 2020-08-25 2020-08-25 Outpatient R NISA, [facility] [id number] Univers 10:30:00 10:30:00 WONDIFUL ity o f [facility] 2020-08-06 2020-08-06 Outpatient R PATRICIO [facility] [id number] Univers 10:20:00 10:20:00 BALJIT flores [facility] 2020-08-06 2020-08-06 Outpatient R PATRICIO [facility] [id number] Univers 09:00:00 09:00:00 BALJIT flores [facility] 2020-08-01 2020-08-01 Outpatient R WIL [facility] [id number] Univers 10:00:00 10:00:00 MATEO mark [facility] 2020-07-18 2020-07-18 Outpatient R LAILA ORELLANA [facility] [id number] Univers 11:00:00 11:00:00 LAILA ORELLANA i [facility] 2020-07-17 2020-07-17 Outpatient R VIK OLIVEIRA [facility] [id number] Univers 12:00:00 12:00:00 mark [facility] 2020-07-14 2020-07-14 Outpatient R NISA [facility] [id number] Univers 10:45:00 10:45:00 WONDIFUL ity o f [facility] 2020-07-07 2020-07-07 Outpatient R MAKSIM [facility] [id number] Univers 08:30:00 08:30:00 AUBRIE jay [facility] 2020-06-27 2020-06-27 Outpatient R NISA [facility] [id number] Univers 15:15:00 15:15:00 WONDIFUL ity o f [facility] 2020-06-12 2020-06-12 Outpatient R MAKSIM [facility] [id number] Univers 15:45:00 15:45:00 AUBRIE [facility] 2020-06-05 2020-06-05 Outpatient R MOMO [facility] [id number] Univers 10:30:00 10:30:00 ISAC [facility] 2020-06-03 2020-06-03 Outpatient R ATUL [facility] [id number] Univers 09:00:00 09:00:00 SENDIL ity [facility] 2020-05-16 2020-05-16 Outpatient R VIK OLIVEIRA [facility] [id number] Univers 16:30:00 16:30:00 ity [facility] 2020-05-09 2020-05-09 Outpatient R [facility] [id number] Univers 10:20:00 10:20:00 ity [facility] 2020-04-21 2020-04-21 Outpatient R ARGENIS, [facility] [id number] Univers 11:40:00 11:40:00 DORITA [facility] 2020-04-18 2020-04-18 [facility] [id number] Univers 09:30:00 09:30:[facility]15 2020-04-15 Outpatient R [facility] [id number] Univers 10:20:00 10:20:00 ity [facility] 2020-04-04 2020-04-04 Outpatient R [facility] [id number] Univers 10:00:00 10:00:00 ity [facility] 2020-04-01 2020-04-01 Outpatient R [facility] [id number] Univers 08:00:00 [facility] 2020-03-20 2020-03-20 Outpatient R ROMARIO, [facility] [id number] Univers 10:00:00 10:00:00 FABRICIO [facility] 2020-03-10 2020-03-10 Outpatient R MIKAYLA [facility] [id number] Univers 08:45:00 08:45:00 CL [facility] 2020-03-03 2020-03-03 Outpatient R MAKSIM, [facility] [id number] Univers 08:00:00 08:00:00 AUBRIE [facility] 2020-01-22 2020-01-22 [facility] [id number] Univers 15:45:00 15:45:00 ISAC [facility] 2020-01-22 2020-01-22 [facility] [id number] Univers 10:45:00 10:45:[address] [facility] 2020-01-18 2020-01-18 Outpatient R SANJAY SÁNCHEZ [facility] [id number] Univers 11:30:00 11:30:00 ity [facility] 2020-01-11 2020-01-11 Outpatient R LAILA ORELLANA [facility] [id number] Univers 11:00:00 11:00:00 LAILA ORELLANA i ty [facility] 2020-01-10 2020-01-10 [facility] [id number] Univers 10:00:00 10:00:00 WONDIFUL ity o f [facility] 2020-01-04 2020-01-04 Outpatient R ROXANNEKAYDENA [facility] [id number] Univers 11:30:00 [facility] 2020-01-01 2020-01-01 Outpatient R [facility] [id number] Univers 08:00:00 08:00:00 [facility] 2019-12-21 2019-12-21 [facility] [id number] Univers 09:30:00 09:30:00 WONDIFUL ity o f [facility] 2019-12-06 2019-12-06 [facility] [id number] Univers 11:00:00 11:00:00 FABRICIO [facility] 2019-11-30 2019-11-30 [facility] [id number] Univers 10:30:00 10:30:00 [facility] 2019-11-29 2019-11-29 Outpatient Brock BARR [facility] [id number] Univers 08:15:00 08:15:00 [facility] 2019-11-23 2019-11-23 Outpatient R [facility] [id number] Univers 08:00:00 08:00:00 [facility] Results Test Description Test Time Test Comments Results Result Comments Source POCT GLUCOSE (AUTOMATED) 2022-03-02 13:11:54 Test Item Value Reference Range Interpretation Comme nts POCT GLU (test code = 4328715122) 137 mg/dL 70-110 H Lab Interpretation (test code = 20045-6) Abnormal [facility] GLUCOSE (AUTOMATED)2022-03-02 13:11:54 Test Item Value Reference Range Interpretation Comments POCT GLU (test code = 6575462344) 137 mg/dL 70-110 H Lab Interpretation (test code = Abnormal 87295-2) [facility] [id number] 12:59:00 Test Item Value Reference Range Interpretation Comments POCT Glu (age>30days) (test code = 137 mg/dL 70-110 A 3342) Lab Interpretation (test code = Abnormal 37642-9) [facility] [id number] 12:59:00 Test Item Value Reference Range Interpretation Comments POCT Glu (age>30days) (test code = 137 mg/dL 70-110 A 3342) Lab Interpretation (test code = Abnormal 16196-1) [facility] [id number] 12:48:00 Test Item Value Reference Range Interpretation Comments POCT PREG (test code = 1605) Negative On board controls acceptable with Yes C Line (test code = 3574) POCT PREG LOT # (test code = 3575) [id number] POCT PREG TEST DATE (test 2023-06-25 code = 3576) [facility] [id number] 12:48:00 Test Item Value Reference Range Interpretation Comments POCT PREG (test code = 1605) Negative On board controls acceptable with Yes C Line (test code = 3574) POCT PREG LOT # (test code = 3575) [id number] POCT PREG TEST DATE (test 2023-06-25 code = 3576) [facility]
[2022-07-10 15:00] LABS: Urine Blood 1+ (Negative); Urine Glucose Negative (Negative); Urine Protein Trace (Negative)
[2022-07-10] MEDS ORDERED: KETOROLAC 30 MG/ML INJ ONE (15:01)
[2022-07-10] MEDS ORDERED: HYDROCODONE/APAP 10/325 TAB ONE (15:01)
--- NOTE | 2022-07-10 15:46 | RAD REPORT ---
EXAM DESCRIPTION: RAD - Pelvis - 07/10/2022 3:12 pm CLINICAL HISTORY: Pelvic pain status post injury FINDINGS: No fracture or dislocation is seen. If the patient continues to have symptoms to suggest an occult fracture then MRI would be recommended
--- NOTE | 2022-07-10 15:46 | RAD REPORT ---
EXAM DESCRIPTION: RAD - Hip Right 2 View - 07/10/2022 3:12 pm CLINICAL HISTORY: Right hip pain FINDINGS: No fracture or dislocation is seen. If the patient continues to have symptoms to suggest an occult fracture then MRI would be recommended
--- NOTE | 2022-07-10 16:12 | EDPHYS ---
Physician Documentation [facility] Name: Linda Rahman Age: 46 yrs Sex: Female : 1975 Arrival Date: 07/10/2022 Time: 13:32 Bed 14 Private MD: ED Physician Mateo Odell HPI: 07/10 15:00 This 46 yrs old Female presents to ER via EMS with complaints of Hip Pain. cp 15:00 The patient or guardian reports an injury, pain. that occurred at home, sustained from cp a fall, from couch onto hardwood floor, There is no obvious deformity, The patient is able to bear their full body weight. using cane due to increased pain today. The complaints affect the right hip. Onset: The symptoms/episode began/occurred 1 week(s) ago. Modifying factors: the symptoms are aggravated by weight bearing. Associated signs and symptoms: Pertinent negatives: abdominal pain, chest pain, fever, weakness, low back pain. Severity of symptoms: in the emergency department the symptoms are unchanged, despite home interventions. 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-menopause em6 Historical: - Allergies: 13:59 Amoxicillin; hb 13:59 Benadryl; hb 13:59 Codeine; hb 13:59 Demerol; hb 13:59 Geodon; hb 13:59 Meclizine; hb 13:59 Tessalon Perles; hb - Home Meds: 14:28 albuterol sulfate 90 mcg/actuation Inhl aebs 1 puff every 6 hours [Active]; em6 amitriptyline 50 mg Oral tab 2 tabs nightly [Active]; biotin 1 mg Oral cap [Active]; buspirone 15 mg Oral tab 2 tabs 2 times per day [Active]; citalopram 40 mg tab 1 tab once daily [Active]; clotrimazole 1 % Topical crea 2 times per day [Active]; cyanocobalamin (vitamin B-12) 1000 mcg/ml injection Oral drop [Active]; cyclobenzaprine 5 mg Oral tab 1 tab 3 times per day [Active]; diclofenac sodium 75 mg Oral chew 1 tab 2 times per day [Active]; diltiazem HCl 120 mg Oral cp12 1 cap 2 times per day [Active]; econazole nitrate 1 % cream twice a day [Active]; ferrous sulfate 325 mg (65 mg iron) Oral chew [Active]; Flovent 110 mcg/actuation Inhl aero 2 puffs 2 times per day [Active]; ginkgo biloba 120 mg Oral tab [Active]; levothyroxine 50 mcg cap 1 cap once daily [Active]; losartan 50 mg Oral tab 1 tab 2 times per day [Active]; metformin 500 mg Oral cp24 1 tab 2 times per day [Active]; Myrbetriq 50 mg Oral Tb24 1 tab once daily [Active]; omeprazole 20 mg Oral cpDR 1 cap once daily [Active]; ozempic 0.25 mg [Active]; pregabalin 150 mg Oral cap 1 cap 3 times per day [Active]; promethazine 25 mg Oral tab 1 tab once daily [Active]; rosuvastatin 10 mg Oral cpSP 1 cap nightly [Active]; triamcinolone acetonide 0.025 % Topical lotn 3 times per day [Active]; - PMHx: 14:28 Anemia; Anxiety; Asthma; diabetes mellitus; Hypertensive disorder; Hypothyroidism; em6 Migraine; - PSHx: 14:28 Cholecystectomy; Ligation of fallopian tube; em6 - Immunization history:: Adult Immunizations unknown. - Social history:: Smoking status: unknown. ROS: 15:05 Constitutional: Negative for body aches, chills, fever, poor PO intake. cp 15:05 Eyes: Negative for injury, pain, redness, and discharge. cp 15:05 Neck: Negative for pain with movement, pain at rest, stiffness. 15:05 Cardiovascular: Negative for chest pain, palpitations. 15:05 Respiratory: Negative for cough, shortness of breath, wheezing. 15:05 Abdomen/GI: Negative for abdominal pain, nausea, vomiting, and diarrhea. 15:05 Back: Negative for pain at rest, pain with movement. 15:05 MS/extremity: Positive for pain, tenderness, of the right hip, Negative for decreased range of motion, paresthesias. 15:05 Neuro: Negative for altered mental status, headache, numbness, weakness. 15:05 All other systems are negative. Exam: 15:10 Constitutional: The patient appears in no acute distress, alert, awake, cp non-diaphoretic, non-toxic, well developed, well nourished, obese, uncomfortable. 15:10 Head/Face: Normocephalic, atraumatic. cp 15:10 Neck: ROM/movement: is normal, is supple, without pain, no range of motions limitations, no nuchal rigidity. 15:10 Chest/axilla: Inspection: normal. 15:10 Cardiovascular: Rate: tachycardic, Rhythm: regular. 15:10 Respiratory: the patient does not display signs of respiratory distress, Respirations: normal, no use of accessory muscles, no retractions, labored breathing, is not present. 15:10 Abdomen/GI: Inspection: obese Palpation: abdomen is soft and non-tender, in all quadrants. 15:10 Back: pain, is absent, ROM is normal. 15:10 Musculoskeletal/extremity: Extremities: noted in the right hip: There is no evidence of deformity, ROM: full passive range of motion, limited passive range of motion due to pain, in the right hip, Pulses: noted to be 2+ in the right dorsalis pedis artery, the right leg Sensation intact. Joints: the right hip displays painful range of motion, tenderness. Vital Signs: 13:57 BP 128 / 92; Pulse 112; Resp 20; Temp 99; Pulse Ox 98% on R/A; Weight 102.97 kg; Height hb 5 ft. 2 in. (157.48 cm); Pain 10/10; 15:15 BP 119 / 86; Pulse 100; Resp 18; Pulse Ox 97% ; em6 16:50 BP 119 / 82; Pulse 100; Resp 18; Pulse Ox 98% on R/A; em6 13:57 Body Mass Index 41.52 (102.97 kg, 157.48 cm) hb MDM: 14:00 Patient medically screened. cp 15:00 Differential diagnosis: hip fracture, intertrochanteric fracture, femoral neck cp fracture, femoral shaft fracture, bursitis, contusion. 16:12 Patient medically screened. cp 16:12 Data reviewed: vital signs, nurses notes, radiologic studies, plain films. cp 16:12 Test interpretation: by ED physician or midlevel provider: plain radiologic studies. cp Counseling: I had a detailed discussion with the patient and/or guardian regarding: the historical points, exam findings, and any diagnostic results supporting the discharge/admit diagnosis, radiology results, to return to the emergency department if symptoms worsen or persist or if there are any questions or concerns that arise at home. Response to treatment: the patient's symptoms have markedly improved after treatment, and as a result, I will discharge patient. 07/10 15:00 Order name: Urine --Ancillary (enter results); Complete Time: 16:07 eb 07/10 15:00 Order name: Urine Dipstick-Ancillary; Complete Time: 16:07 EDMS 07/10 16:07 Interpretation: Normal except: UBLD 1+; UPROT Trace; UNIT Positive; UESTR 3+. cp 07/10 14:44 Order name: XRAY Hip RIGHT 2 view; Complete Time: 16:07 cp 07/10 14:44 Order name: XRAY Pelvis; Complete Time: 16:07 cp 07/10 14:44 Order name: Urine Dipstick-Ancillary (obtain specimen); Complete Time: 15:10 cp 07/10 14:44 Order name: Urine Test (obtain specimen); Complete Time: 15:10 cp Administered Medications: 15:09 Drug: Ketorolac 30 mg Route: IM; Site: right deltoid; em6 16:00 Follow up: Response: No adverse reaction em6 15:10 Drug: HYDROcodone-acetaminophen 10 mg-325 mg 1 tabs Route: PO; em6 16:10 Follow up: Response: No adverse reaction; RASS: Alert and Calm (0) em6 16:35 Drug: Rocephin (cefTRIAXone) 1 grams Route: IM; Site: left gluteus; em6 16:49 Follow up: Response: No adverse reaction em6 Disposition Summary: 07/10/22 16:12 Discharge Ordered Location: Home cp Problem: new cp Symptoms: have improved cp Condition: Stable cp Diagnosis - Fall on same level, unspecified cp - Pain in right hip cp - UTI/ Urinary tract infection, site not specified cp Followup: cp - With: Private Physician - When: 2 - 3 days - Reason: Worsening of condition Discharge Instructions: - Discharge Summary Sheet cp - Urinary Tract Infection, Adult cp - Hip Pain cp Forms: - Medication Reconciliation Form cp - Thank You Letter cp - Antibiotic Education cp - Prescription Opioid Use cp Prescriptions: - Ibuprofen 800 mg Oral Tablet - take 1 tablet by ORAL route every 8 hours As needed take with food; 30 tablet; cp Refills: 0, Product Selection Permitted - Macrobid 100 mg Oral Capsule - take 1 capsule by ORAL route every 12 hours for 7 days; 14 capsule; Refills: 0, cp Product Selection Permitted Signatures: Dispatcher [employer] EDMS Young Burgos PA PA cp Baxter, Heather RN RN Nava Guerra RN RN em6 Corrections: (The following items were deleted from the chart) 07/11 15:20 15:19 Constitutional: Negative for body aches, chills, fever, poor PO intake, cp cp
--- NOTE | 2022-07-10 16:12 | ER ---
Nurse's Notes [facility] Name: Linda Rahman Age: 46 yrs Sex: Female : 1975 Arrival Date: 07/10/2022 Time: 13:32 Bed 14 Private MD: Diagnosis: Fall on same level, unspecified;Pain in right hip;UTI/ Urinary tract infection, site not specified Presentation: 07/10 13:57 Chief complaint: EMS states: Right hip pain that radiates to right upper leg after fall hb off of couch onto hard floor 1 week ago. Pain became worse today while ambulating with cane, now unable to bear weight on right leg. Coronavirus screen: At this time, the client does not indicate any symptoms associated with coronavirus-19. Ebola Screen: No symptoms or risks identified at this time. Initial Sepsis Screen: Does the patient meet any 2 criteria? No. Patient's initial sepsis screen is negative. Does the patient have a suspected source of infection? No. Patient's initial sepsis screen is negative. Risk Assessment: Do you want to hurt yourself or someone else? Patient reports no desire to harm self or others. Onset of symptoms was July 04, 2022. 13:57 Method Of Arrival: EMS: [facility] 13:57 Acuity: HOL[place] 3 hb Triage Assessment: 13:58 General: Appears in no apparent distress. uncomfortable, Behavior is calm, cooperative. hb Pain: Pain currently is 10 out of 10 on a pain scale. Neuro: Level of Consciousness is awake, alert, obeys commands, Oriented to person, place, time, situation. Cardiovascular: Patient's skin is warm and dry. Respiratory: Respiratory effort is even, unlabored, Respiratory pattern is regular, symmetrical. 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 em6 Historical: - Allergies: 13:59 Amoxicillin; hb 13:59 Benadryl; hb 13:59 Codeine; hb 13:59 Demerol; hb 13:59 Geodon; hb 13:59 Meclizine; hb 13:59 Tessalon Perles; hb - Home Meds: 14:28 albuterol sulfate 90 mcg/actuation Inhl aebs 1 puff every 6 hours [Active]; em6 amitriptyline 50 mg Oral tab 2 tabs nightly [Active]; biotin 1 mg Oral cap [Active]; buspirone 15 mg Oral tab 2 tabs 2 times per day [Active]; citalopram 40 mg tab 1 tab once daily [Active]; clotrimazole 1 % Topical crea 2 times per day [Active]; cyanocobalamin (vitamin B-12) 1000 mcg/ml injection Oral drop [Active]; cyclobenzaprine 5 mg Oral tab 1 tab 3 times per day [Active]; diclofenac sodium 75 mg Oral chew 1 tab 2 times per day [Active]; diltiazem HCl 120 mg Oral cp12 1 cap 2 times per day [Active]; econazole nitrate 1 % cream twice a day [Active]; ferrous sulfate 325 mg (65 mg iron) Oral chew [Active]; Flovent 110 mcg/actuation Inhl aero 2 puffs 2 times per day [Active]; ginkgo biloba 120 mg Oral tab [Active]; levothyroxine 50 mcg cap 1 cap once daily [Active]; losartan 50 mg Oral tab 1 tab 2 times per day [Active]; metformin 500 mg Oral cp24 1 tab 2 times per day [Active]; Myrbetriq 50 mg Oral Tb24 1 tab once daily [Active]; omeprazole 20 mg Oral cpDR 1 cap once daily [Active]; ozempic 0.25 mg [Active]; pregabalin 150 mg Oral cap 1 cap 3 times per day [Active]; promethazine 25 mg Oral tab 1 tab once daily [Active]; rosuvastatin 10 mg Oral cpSP 1 cap nightly [Active]; triamcinolone acetonide 0.025 % Topical lotn 3 times per day [Active]; - PMHx: 14:28 Anemia; Anxiety; Asthma; diabetes mellitus; Hypertensive disorder; Hypothyroidism; em6 Migraine; - PSHx: 14:28 Cholecystectomy; Ligation of fallopian tube; em6 - Immunization history:: Adult Immunizations unknown. - Social history:: Smoking status: unknown. Screenin:28 Abuse screen: Denies threats or abuse. Nutritional screening: No deficits noted. em6 Tuberculosis screening: No symptoms or risk factors identified. 14:37 Fall Risk Fall in past 12 months (25 points). No secondary diagnosis (0 pts). em6 Ambulatory Aid- None/Bed Rest/Nurse Assist (0 pts). Gait- Impaired (20 pts.). Mental Status- Oriented to own ability (0 pts). Total Butt Fall Scale indicates High Risk Score (45 or more points). Fall prevention measures have been instituted. Side Rails Up X 2 Placed Close to Nursing Station Frequent Obs/Assessments Occuring As available patient and family educated on Fall Prevention Program and Strategies. Assessment: 14:35 General: Appears uncomfortable, Behavior is cooperative. Pain: Complains of pain in em6 right hip and right leg Pain radiates to right leg Pain currently is 10 out of 10 on a pain scale. Quality of pain is described as sharp, stabbing, Pain began 4 hours ago. Is continuous. Neuro: Level of Consciousness is awake, alert, obeys commands, Oriented to person, place, time, situation. Cardiovascular: Patient's skin is warm and dry. Respiratory: Airway is patent Respiratory effort is even, unlabored, Respiratory pattern is regular, symmetrical, Breath sounds are clear bilaterally. GI: No signs and/or symptoms were reported involving the gastrointestinal system. : No signs and/or symptoms were reported regarding the genitourinary system. EENT: No signs and/or symptoms were reported regarding the EENT system. Derm: No signs and/or symptoms reported regarding the dermatologic system. Musculoskeletal: Range of motion: limited in right leg. 15:40 Reassessment: No changes from previously documented assessment. Patient and/or family em6 updated on plan of care and expected duration. Pain level reassessed. Patient is alert, oriented x 3, equal unlabored respirations, skin warm/dry/pink. 16:40 Reassessment: No changes from previously documented assessment. Patient and/or family em6 updated on plan of care and expected duration. Pain level reassessed. Patient is alert, oriented x 3, equal unlabored respirations, skin warm/dry/pink. Vital Signs: 13:57 BP 128 / 92; Pulse 112; Resp 20; Temp 99; Pulse Ox 98% on R/A; Weight 102.97 kg; Height hb 5 ft. 2 in. (157.48 cm); Pain 10/10; 15:15 BP 119 / 86; Pulse 100; Resp 18; Pulse Ox 97% ; em6 16:50 BP 119 / 82; Pulse 100; Resp 18; Pulse Ox 98% on R/A; em6 13:57 Body Mass Index 41.52 (102.97 kg, 157.48 cm) hb ED Course: 13:32 Patient arrived in ED. am2 13:40 Young Burgos PA is PHCP. cp 13:40 Mateo Odell MD is Attending Physician. cp 13:59 Triage completed. hb 13:59 Arm band placed on. hb 14:26 Nava Guerra, RN is Primary Nurse. em6 14:38 Bed in low position. Call light in reach. Side rails up X2. Pulse ox on. NIBP on. Warm em6 blanket given. 15:14 XRAY Hip RIGHT 2 view In Process Unspecified. EDMS 15:14 XRAY Pelvis In Process Unspecified. EDMS 16:51 No provider procedures requiring assistance completed. Patient did not have IV access em6 during this emergency room visit. Administered Medications: 15:09 Drug: Ketorolac 30 mg Route: IM; Site: right deltoid; em6 16:00 Follow up: Response: No adverse reaction em6 15:10 Drug: HYDROcodone-acetaminophen 10 mg-325 mg 1 tabs Route: PO; em6 16:10 Follow up: Response: No adverse reaction; RASS: Alert and Calm (0) em6 16:35 Drug: Rocephin (cefTRIAXone) 1 grams Route: IM; Site: left gluteus; em6 16:49 Follow up: Response: No adverse reaction em6 Medication: 16:51 VIS not applicable for this client. em6 Outcome: 16:12 Discharge ordered by MD. cp 16:55 Discharged to home via wheelchair. em6 16:55 Condition: stable 16:55 Discharge instructions given to patient, Instructed on discharge instructions, follow up and referral plans. medication usage, Demonstrated understanding of instructions, follow-up care, medications, Prescriptions given X 2. 16:56 Patient left the ED. em6 Signatures: Dispatcher [employer] EDMS Young Burgos PA PA cp Baxter, Heather, RN RN Adeel Koo am2 Nava Guerra, ABDULLAHI RN em6 Corrections: (The following items were deleted from the chart) 14:18 13:57 Chief complaint: EMS states: Right hip pain that radiates to right upper leg hb after fall off of couch onto hard floor 1 week ago. Pain became worse today while ambulating with cane. hb 16:49 16:49 Response: No adverse reaction; RASS: Alert and Calm (0) em6 em6
[2022-07-10] MEDS ORDERED: LIDOCAINE 1% MPF 5 ML VIAL ONE (16:33)
[2022-07-10] MEDS ORDERED: CEFTRIAXONE 1000 MG/VIAL ONE (16:34)
[2022-07-10 17:00] VITALS: TEMP 99
[2022-07-10 17:02] VITALS: BP 119/82; O2SAT 98
== END 2022-07-10 16:56 | disposition home or self-care (01) ==
LOC: ER 13:32
DX: M25.551 Pain in right hip (principal); N39.0 Urinary tract infection, site not specified; W08.XXXA Fall from other furniture, initial encounter; Y93.9 Activity, unspecified; Y92.018 Other place in single-family (private) house as the place of occurrence of the external cause; Z88.6 Allergy status to analgesic agent; Z88.1 Allergy status to other antibiotic agents; Z88.8 Allergy status to other drugs, medicaments and biological substances; I10 Essential (primary) hypertension; E03.9 Hypothyroidism, unspecified; E11.9 Type 2 diabetes mellitus without complications; J45.909 Unspecified asthma, uncomplicated; D64.9 Anemia, unspecified; F41.9 Anxiety disorder, unspecified
CPT/HCPCS: 81025; 81003; 72170; 73502; 96372; 99284; J2001

== ENCOUNTER 2022-08-12 15:37 | Emergency (ER) | payer OTHER ==
--- OUTSIDE RECORDS SUMMARY | 2022-08-12 16:03 | XMS REPORT | Continuity of Care Document ---
:1975 Author Organization [facility] t Address [address] [place] [address] Care Team Providers Name Role Phone TRAY JOLLY Primary Care Physician Unavailable CECILE MÁRQUEZ Attending Clinician Unavailable GREG JACKSON Attending Clinician Unavailable MARIBEL TINSLEY Attending Clinician Unavailable ARNOLDO ELIZABETH Attending Clinician Unavailable TRAY JOLLY Attending Clinician Unavailable MATEO HINTON Attending Clinician Unavailable Tray Jolly MD Attending Clinician STELLA WORLEY Attending Clinician Unavailable STELLA WORLEY Attending Clinician Unavailable Doctor Unassigned, [place] Attending Clinician Unavailable Cecile Márquez MD Attending Clinician Nurse, Ry Carbajal Attending Clinician Unavailable SANJAY SÁNCHEZ Attending Clinician Unavailable CLAU AGUILAR Attending Clinician Unavailable VIK OLIVEIRA Attending Clinician Unavailable Atul HOLLINS, Ricardo K.H. Attending Clinician ISAC BARR Attending Clinician Unavailable Sheri Berrios MD Attending Clinician SHERI BERRIOS Attending Clinician Unavailable Destiny Oneill MD Attending Clinician DESTINY ONEILL Attending Clinician Unavailable Nisa MD, Wondiful A Attending Clinician Vik Oliveira MD Attending Clinician CAPRICE HENRIQUEZ Attending Clinician Unavailable Elliot FERNANDO, Young Attending Clinician Unavailable NAV ANTONIO Attending Clinician Unavailable Isac Barney Attending Clinician Wil HOLLINS, Mateo العراقي Attending Clinician Arnoldo Elizabeth MD Attending Clinician Jessie [facility], Genesis Shah Attending Clinician GABRIELLA SALAS Attending Clinician Unavailable ANDREA PAULA Attending Clinician Unavailable Scot [facility], Vik Fleming Attending Clinician Yumiko NI, Sanjay [...] Clinician Unavailable DESTINY ONEILL Admitting Clinician Unavailable Ceciliasonal_Mitzy Admitting Clinician Unavailable CAPRICE HENRIQUEZ Admitting Clinician Unavailable Payers Payer Name Policy Type Policy Number Effective Date Expiration Date Mitzy mcneil [facility] [id number] 2021 COMP CHOICE PPO 00:00:00 DSNP [facility] ST[facility] PLUS [id number] 2021 00:00:00 MEDICAID [facility] [id number] 2016 00:00:00 DEVOTED HEALTH DAY8 2021 (MEDICARE 00:00:00 REPLACEMENT HMO) [employer] [id number] 2020 BEHAVIORAL 00:00:00 SOLUTIONS Problems Condition Condition [...] Added automatic ally from request for surgery [id number] Chronic Chronic Disease Active Overview: Univ ers superficia superficia 4-05 Formattin ity of l l 00:00: g of this [place] gastritis gastritis 00 note Medi cipriano without without might be Branch bleeding bleeding different from the original. Added automatic ally from request for surgery [id number] Hyperplast Hyperplast Disease Active Overview : Univers ic polyps ic polyps 4-05 Formattin i ty of of stomach of stomach 00:00: g of this [place] 00 note Medical might be Branch different from the original. Added automatic ally from request for surgery [id number] Indigestio Indigestio Disease Active 2020-09 Overview : Univers n n 2-15 Formattin ity of 00:00: g of this [place] 00 note Medical might be Branch different from the original. Added automatic ally from request for surgery [id number] Bloating Bloating Disease Active 2020-09 Overview: Un jerrod 2-15 Formattin ity of 00:00: g of this note Medical might be Branch different from the original. Added automatic ally from request for surgery [id number] Dental Dental Disease Active Univers caries caries 5-20 ity of 00:00: Medical Branch Chronic Chronic Disease Active Univers dental dental 5-20 ity of pain pain 00:00: [place] [facility] Macrogloss Macrogloss Disease Active U cliffers ia ia 5-20 ity of 00:00: [place] [...] Disease Active Univers 7-10 ity of 00:00: [place] [facility] Twitching Twitching Disease Active Uni vers 7-10 ity of 00:00: [place] [facility] Asthma, Asthma, Disease Active Univers mild mild 5-23 ity of persistent persistent 00:00: [place] [facility] Fatty Fatty Disease Active Univers liver liver 3-24 ity of 00:00: [place] [facility] Hepatomega Hepatomega Disease Active U nivers ly ly 3-24 ity of 00:00: [place] [facility] Obesity Obesity Disease Active Univers [...] 5-23 ity of bleeding bleeding 00:00: [place] [facility] Submucous Submucous Disease Active Uni vers leiomyoma leiomyoma 5-23 ity of of uterus of uterus 00:00[place] [facility] [place] Encounter Encounter Disease Active Uni vers for blood for blood 2-16 ity of transfusio transfusio 00:[place] History of History of Disease Active U nivers tubal tubal 2-05 ity of ligation ligation 00:00: [place] [facility] Recurrent Recurrent Disease Active Uni [...] U nivers neuropathy neuropathy it y of [facility] [place] [facility] 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 ity of [facility] [place] [facility] PCOS PCOS Disease Active Univers (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 Allergies, Adverse Reactions, Alerts Allergy Allergy Status Severity Reaction(s) Onset Inactive Treating Comm ents Source Name Type Date Date Clinician Milk Propensi Active Other - See sneeze Uni vers ty to comments 814 ity of adverse 00:00: [place] reaction Medical s Branch MILK DRUG Active Other-Cmnt Univer s INGREDI 8- ity of 00:00: [place] 00 Medical Branch [...] and breathing BENZONAT DRUG Active High Swelling 2016-0 Univer s ATE INGREDI 2-09 ity of [...] 2015-0 Univers ne Hcl ty to ns 904 [...] 9-04 ity of 00:00: [place] 00 Medical [place] Social History Social Habit Start Date Stop Date Quantity Comments Source Exposure to 2022-07-17 2022-07-27 Not sure [place] of SARS-CoV-2 (event) 00:00:00 07:31:00 [facility] [place] [facility] Tobacco Comment 2022-06-17 2022-06-17 10 years ago Univers ity of 00:00:00 00:00:00 [facility] [place] [facility] Cigarettes smoked 2022-06-17 2022-06-17 Univers ity of current (pack per 00:00:00 00:00:00 ) - Reported Branch Cigarette 2022-06-17 2022-06-17 University of pack-years 00:00:00 00:00:00 [facility] [place] [facility] Tobacco use and 2022-06-17 2022-06-17 Smokeless Universit y of exposure 00:00:00 00:00:00 tobacco non-user [facility] Alcohol intake 2022-06-17 2022-06-17 0 /d University of 00:00:00 00:00:00 [facility] [place] [facility] History of tobacco 1982-10-20 2007-10-20 Cigarette Smoker University of use 00:00:00 00:00:00 [facility] [place] [facility] Sex [birth year] At [birth year] Univers y of 00:00:00 00:00:00 [facility] [place] [facility] Smoking Status Start Date Stop Date Source Ex-smoker 2022-06-17 00:00:00 2022-06-17 00:00:00 [facility] Medications Ordered Filled Start Stop Current Ordering Indication Dosage Frequency Signature Comments Components Source Medication Medication Date Date Medication? Clinician (SIG) Name Name levothyroxi 2021-09 Yes [id number] 50ug Take 1 Univers ne 50 mcg 1-03 tablet by ity o f tablet 00:00: mouth [place] 00 every Medical morning. Branch levothyroxi 2021-09 Yes [id number] 50ug Take 1 Univers ne 50 mcg 1-03 tablet by ity o f tablet 00:00: mouth [place] 00 every Medical morning. Branch levothyroxi 2021-09 Yes [id number] 50ug Take 1 Univers ne 50 mcg 1-03 tablet by ity o f tablet 00:00: mouth [place] 00 every Medical morning. Branch DOCUSATE 2021-09 Yes Take by Univer s SODIUM 1-01 mouth. ity of (COLACE 08:06: [place] ORAL) 37 Medical Branch DOCUSATE 2021-09 Yes Take by Univer s SODIUM 1-01 mouth. ity of (COLACE 08:06: [place] ORAL) 37 Medical Branch DOCUSATE 2021-09 Yes Take by Univer s SODIUM 1-01 mouth. ity of (COLACE 08:06: [place] ORAL) 37 [facility] DOCUSATE 2021-09 Yes Take by Univer s SODIUM 1-01 mouth. ity of (COLACE 08:06: [place] ORAL) 37 [facility] DOCUSATE 2021-09 Yes Take by Univer s SODIUM 1-01 mouth. ity of (COLACE 08:06: [place] ORAL) 37 Medical Branch diltiazem 2021-09 Yes [id number] 120mg Take 1 U nivers 120 mg 24 1-01 capsule by ity of hr capsule 00:00: mouth in [place] 00 the Medical morning Branch and 1 capsule in the evening. fluticasone 2021-09 Yes [id number] 2{puff} Inhale 2 Univers propionate 1-01 Puffs ity of (FLOVENT 00:00: every 12 [place] HFA) 110 00 (twelve) Medical mcg/actuati hours. Branch on inhaler Rinse mouth after each use. levothyroxi 2021-09 Yes [id number] 50ug Take 1 Univers ne 50 mcg 1-01 tablet by ity o f tablet 00:00: mouth [place] 00 every Medical morning. Branch metformin 2021-09 Yes [id number] 500mg Take 1 U nivers ER 500 mg 1-01 tablet by ity o f 24 hr 00:00: mouth [place] tablet 00 daily with Medical breakfast. Branch pantoprazol 2021-09 Yes [id number] 40mg Take 1 Univers e 40 mg EC 1-01 tablet by ity of tablet 00:00: mouth in [place] 00 the Medical morning. Branch pregabalin 2021-09 Yes [id number] 150mg Take 1 Univers 150 mg 1-01 capsule by ity of capsule 00:00: mouth in [place] 00 the Medical morning Branch and 1 capsule at noon and 1 capsule in the evening. rosuvastati 2021-09 Yes [id number] 10mg Take 1 Univers n 10 mg 1-01 tablet by ity of tablet 00:00: mouth at [place] 00 bedtime. Medical Branch SUMAtriptan 2021-09 Yes [id number] 50mg Take 1 Univers 50 mg 1-01 tablet by ity of tablet 00:00: mouth as [place] 00 needed for Medical Migraine. Branch diltiazem 2021-09 Yes [id number] 120mg Take 1 U nivers 120 mg 24 1-01 capsule by ity of hr capsule 00:00: mouth in [place] as 00 the Medical morning Branch and 1 capsule in the evening. fluticasone 2021-09 Yes [id number] 2{puff} Inhale 2 Univers propionate 1-01 Puffs ity of (FLOVENT 00:00: every 12 [place] HFA) 110 00 (twelve) Medical mcg/actuati hours. Branch on inhaler Rinse mouth after each use. levothyroxi 2021-09 Yes [id number] 50ug Take 1 Univers ne 50 mcg 1-01 tablet by ity o f tablet 00:00: mouth [place] 00 every Medical morning. Branch metformin 2021-09 Yes [id number] 500mg Take 1 U nivers ER 500 mg 1-01 tablet by ity o f 24 hr 00:00: mouth [place] tablet 00 daily with Medical breakfast. Branch pantoprazol 2021-09 Yes [id number] 40mg Take 1 Univers e 40 mg EC 1-01 tablet by ity of tablet 00:00: mouth in [place] 00 the Medical morning. Branch pregabalin 2021-09 Yes [id number] 150mg Take 1 Univers 150 mg 1-01 capsule by ity of capsule 00:00: mouth in [place] 00 the Medical morning Branch and 1 capsule at noon and 1 capsule in the evening. rosuvastati 2021-09 Yes [id number] 10mg Take 1 Univers n 10 mg 1-01 tablet by ity of tablet 00:00: mouth at [place] [address] bedtime. Medical Branch SUMAtriptan 2021-09 Yes [id number] 50mg Take 1 Univers 50 mg 1-01 tablet by ity of tablet 00:00: mouth as [place] 00 needed for Medical Migraine. Branch diltiazem 2021-09 Yes [id number] 120mg Take 1 U nivers 120 mg 24 1-01 capsule by ity of hr capsule 00:00: mouth in [facility] as 00 the Medical morning Branch and 1 capsule in the evening. fluticasone 2021-09 Yes [id number] 2{puff} Inhale 2 Univers propionate 1-01 Puffs ity of (FLOVENT 00:00: every 12 [place] HFA) 110 00 (twelve) Medical mcg/actuati hours. Branch on inhaler Rinse mouth after each use. metformin 2021-09 Yes [id number] 500mg Take 1 U nivers ER 500 mg 1-01 tablet by ity o f 24 hr 00:00: mouth [place] tablet 00 daily with Medical breakfast. Branch pantoprazol 2021-09 Yes [id number] 40mg Take 1 Univers e 40 mg EC 1-01 tablet by ity of tablet 00:00: mouth in [place] 00 the Medical morning. Branch pregabalin 2021-09 Yes [id number] 150mg Take 1 Univers 150 mg 1-01 capsule by ity of capsule 00:00: mouth in [place] 00 the Medical morning Branch and 1 capsule at noon and 1 capsule in the evening. rosuvastati 2021-09 Yes [id number] 10mg Take 1 Univers n 10 mg 1-01 tablet by ity of tablet 00:00: mouth at [place] [address] bedtime. Medical Branch SUMAtriptan 2021-09 Yes [id number] 50mg Take 1 Univers 50 mg 1-01 tablet by ity of tablet 00:00: mouth as [place] 00 needed for Medical Migraine. Branch diltiazem 2021-09 Yes [id number] 120mg Take 1 U nivers 120 mg 24 1-01 capsule by ity of hr capsule 00:00: mouth in [place] 00 the Medical morning Branch and 1 capsule in the evening. fluticasone 2021-09 Yes [id number] 2{puff} Inhale 2 Univers propionate 1-01 Puffs ity of (FLOVENT 00:00: every 12 [place] HFA) 110 00 (twelve) Medical mcg/actuati hours. Branch on inhaler Rinse mouth after each use. metformin 2021-09 Yes [id number] 500mg Take 1 U nivers ER 500 mg 1-01 tablet by ity o f 24 hr 00:00: mouth [place] tablet 00 daily with Medical breakfast. Branch pantoprazol 2021-09 Yes [id number] 40mg Take 1 Univers e 40 mg EC 1-01 tablet by ity of tablet 00:00: mouth in [place] 00 the Medical morning. Branch pregabalin 2021-09 Yes [id number] 150mg Take 1 Univers 150 mg 1-01 capsule by ity of capsule 00:00: mouth in [place] 00 the Medical morning Branch and 1 capsule at noon and 1 capsule in the evening. rosuvastati 2021-09 Yes [id number] 10mg Take 1 Univers n 10 mg 1-01 tablet by ity of tablet 00:00: mouth at [place] [address] bedtime. Medical Branch SUMAtriptan 2021-09 Yes [id number] 50mg Take 1 Univers 50 mg 1-01 tablet by ity of tablet 00:00: mouth as [place] 00 needed for Medical Migraine. Branch diltiazem 2021-09 Yes [id number] 120mg Take 1 U nivers 120 mg 24 - capsule by ity of hr capsule 00:00: mouth in [place] 00 the Medical morning Branch and 1 capsule in the evening. fluticasone 2021-09 Yes [id number] 2{puff} Inhale 2 Univers propionate 1-01 Puffs ity of (FLOVENT 00:00: every 12 [place] HFA) 110 00 (twelve) Medical mcg/actuati hours. Branch on inhaler Rinse mouth after each use. metformin 2021-09 Yes [id number] 500mg Take 1 U nivers ER 500 mg - tablet by ity o f 24 hr 00:00: mouth [place] tablet 00 daily with Medical breakfast. Branch pantoprazol 2021-09 Yes [id number] 40mg Take 1 Univers e 40 mg EC 09-26 tablet by ity of tablet 00:00: mouth in [place] 00 the Medical morning. Branch pregabalin 2021-09 Yes [id number] 150mg Take 1 Univers 150 mg 09-26 capsule by ity of capsule 00:00: mouth in [place] 00 the Medical morning Branch and 1 capsule at noon and 1 capsule in the evening. rosuvastati 2021-09 Yes [id number] 10mg Take 1 Univers n 10 mg 09-26 tablet by ity of tablet 00:00: mouth at [place] 00 bedtime. Medical Branch SUMAtriptan 2021-09 Yes [id number] 50mg Take 1 Univers 50 mg 09-26 tablet by ity of tablet 00:00: mouth as [place] 00 needed for Medical Migraine. Branch levothyroxi 2021-09- No [id number] 50ug Take 1 Univers ne 50 mcg 09-26 tablet by ity of tablet 00:00: 00:00 mouth [place] 00 :00 every Medical morning. Branch levothyroxi 2021-09- No [id number] 50ug Take 1 Univers ne 50 mcg 09-26 tablet by ity of tablet 00:00: 00:00 mouth [place] 00 :00 every Medical morning. Branch busPIRone 2021-09 Yes [id number] 20mg Take 2 Un jerrod 10 mg 0-13 tablets by ity of tablet 00:00: mouth in [place] 00 the Medical morning Branch and 2 tablets in the evening. diltiazem 2021-09 Yes [id number] 120mg Take 1 U nivers 120 mg 24 0-13 capsule by ity of hr capsule 00:00: mouth in [place] 00 the Medical morning Branch and 1 capsule in the evening. levothyroxi 2021-09 Yes [id number] 50ug Take 1 Univers ne 50 mcg 0-13 tablet by ity o f tablet 00:00: mouth [place] 00 every Medical morning. Branch losartan 50 2021-09 Yes [id number] 50mg Take 1 Univers mg tablet 0-13 tablet by ity o f 00:00: mouth in [place] 00 the Medical morning Branch and 1 tablet in the evening. metformin 2021-09 Yes [id number] 500mg Take 1 U nivers ER 500 mg 0-13 tablet by ity o f 24 hr 00:00: mouth [place] tablet 00 daily with Medical breakfast. Branch STOP REGULAR METFORMIN. mirabegron 2021-09 Yes [id number] 50mg Take 1 Univers (MYRBETRIQ) 0-13 tablet by ity of 50 mg 00:00: mouth in [place] tablet 00 the Medical morning. Branch semaglutide 2021-09 Yes [id number] Inject Univers (OZEMPIC) 0-13 0.25 mg ity of 0.25 mg or 00:00: under the [place] 0.5 mg(2 00 skin Medical mg/1.5 mL) weekly. Branch PnIj pantoprazol 2021-09 Yes [id number] 40mg Take 1 Univers e 40 mg EC 0-13 tablet by ity of tablet 00:00: mouth in [place] 00 the Medical morning. Branch pregabalin 2021-09 Yes [id number] 150mg Take 1 Univers 150 mg 0-13 capsule by ity of capsule 00:00: mouth in [place] 00 the Medical morning Branch and 1 capsule at noon and 1 capsule in the evening. rosuvastati 2021-09 Yes [id number] 10mg Take 1 Univers n 10 mg 0-13 tablet by ity of tablet 00:00: mouth at [place] 00 bedtime. Medical Branch SUMAtriptan 2021-09 Yes [id number] 50mg Take 1 Univers 50 mg 0-13 tablet by ity of tablet 00:00: mouth as [place] 00 needed for Medical Migraine. Branch topiramate 2021-09 Yes [id number] 75mg Take 3 Univers 25 mg 0-13 tablets by ity of tablet 00:00: mouth in [place] 00 the Medical morning Branch and 3 tablets in the evening. busPIRone 2021-09 Yes [id number] 20mg Take 2 Un jerrod 10 mg 0-13 tablets by ity of tablet 00:00: mouth in [place] 00 the Medical morning Branch and 2 tablets in the evening. losartan 50 2021-09 Yes [id number] 50mg Take 1 Univers mg tablet 0-13 tablet by ity o f 00:00: mouth in [place] 00 the Medical morning Branch and 1 tablet in the evening. mirabegron 2021-09 Yes [id number] 50mg Take 1 Univers (MYRBETRIQ) 0-13 tablet by ity of 50 mg 00:00: mouth in [place] tablet 00 the Medical morning. Branch semaglutide 2021-09 Yes [id number] Inject Univers (OZEMPIC) 0-13 0.25 mg ity of 0.25 mg or 00:00: under the [place] 0.5 mg(2 00 skin Medical mg/1.5 mL) weekly. Branch PnIj topiramate 2021-09 Yes [id number] 75mg Take 3 Univers 25 mg 0-13 tablets by ity of tablet 00:00: mouth in [place] 00 the Medical morning Branch and 3 tablets in the evening. busPIRone 2021-09 Yes [id number] 20mg Take 2 Un jerrod 10 mg 0-13 tablets by ity of tablet 00:00: mouth in [place] 00 the Medical morning Branch and 2 tablets in the evening. losartan 50 2021-09 Yes [id number] 50mg Take 1 Univers mg tablet 0-13 tablet by ity o f 00:00: mouth in [place] 00 the Medical morning Branch and 1 tablet in the evening. mirabegron 2021-09 Yes [id number] 50mg Take 1 Univers (MYRBETRIQ) 0-13 tablet by ity of 50 mg 00:00: mouth in [place] tablet 00 the Medical morning. Branch semaglutide 2021-09 Yes [id number] Inject Univers (OZEMPIC) 0-13 0.25 mg ity of 0.25 mg or 00:00: under the [place] 0.5 mg(2 00 skin Medical mg/1.5 mL) weekly. Branch PnIj topiramate 2021-09 Yes [id number] 75mg Take 3 Univers 25 mg 0-13 tablets by ity of tablet 00:00: mouth in [place] 00 the Medical morning Branch and 3 tablets in the evening. busPIRone 2021-09 Yes [id number] 20mg Take 2 Un [place] 10 mg 0-13 tablets by ity of tablet 00:00: mouth in [place] 00 the Medical morning Branch and 2 tablets in the evening. losartan 50 2021-09 Yes [id number] 50mg Take 1 Univers mg tablet 0-13 tablet by ity o f 00:00: mouth in [place] 00 the Medical morning Branch and 1 tablet in the evening. mirabegron 2021-09 Yes [id number] 50mg Take 1 Univers (MYRBETRIQ) 0-13 tablet by ity of 50 mg 00:00: mouth in [place] tablet 00 the Medical morning. Branch semaglutide 2021-09 Yes [id number] Inject Univers (OZEMPIC) 0-13 0.25 mg ity of 0.25 mg or 00:00: under the [place] 0.5 mg(2 00 skin Medical mg/1.5 mL) weekly. Branch PnIj topiramate 2021-09 Yes [id number] 75mg Take 3 Univers 25 mg 0-13 tablets by ity of tablet 00:00: mouth in [place] 00 the Medical morning Branch and 3 tablets in the evening. busPIRone 2021-09 Yes [id number] 20mg Take 2 Un jer[place] 10 mg 0-13 tablets by ity of tablet 00:00: mouth in [place] 00 the Medical morning Branch and 2 tablets in the evening. losartan 50 2021-09 Yes [id number] 50mg Take 1 Univers mg tablet 0-13 tablet by ity o f 00:00: mouth in [place] 00 the Medical morning Branch and 1 tablet in the evening. mirabegron 2021-09 Yes [id number] 50mg Take 1 Univers (MYRBETRIQ) 0-13 tablet by ity of 50 mg 00:00: mouth in [place] tablet 00 the Medical morning. Branch semaglutide 2021-09 Yes [id number] Inject Univers (OZEMPIC) 0-13 0.25 mg ity of 0.25 mg or 00:00: under the [place] 0.5 mg(2 00 skin Medical mg/1.5 mL) weekly. Branch PnIj topiramate 2021-09 Yes [id number] 75mg Take 3 Univers 25 mg 0-13 tablets by ity of tablet 00:00: mouth in [place] 00 the Medical morning Branch and 3 tablets in the evening. busPIRone 2021-09 Yes [id number] 20mg Take 2 Un [place] 10 mg 0-13 tablets by ity of tablet 00:00: mouth in [place] 00 the Medical morning Branch and 2 tablets in the evening. losartan 50 2021-09 Yes [id number] 50mg Take 1 Univers mg tablet 0-13 tablet by ity o f 00:00: mouth in [place] 00 the Medical morning Branch and 1 tablet in the evening. mirabegron 2021-09 Yes [id number] 50mg Take 1 Univers (MYRBETRIQ) 0-13 tablet by ity of 50 mg 00:00: mouth in [place] tablet 00 the Medical morning. Branch semaglutide 2021-09 Yes [id number] Inject Univers (OZEMPIC) 0-13 0.25 mg ity of 0.25 mg or 00:00: under the [place] 0.5 mg(2 00 skin Medical mg/1.5 mL) weekly. Branch PnIj topiramate 2021-09 Yes [id number] 75mg Take 3 Univers 25 mg 0-13 tablets by ity of tablet 00:00: mouth in [place] 00 the Medical morning Branch and 3 tablets in the evening. diltiazem 2021-09- No [id number] 120mg Take 1 Univers 120 mg 24 07-27 capsule by ity of hr capsule 00:00: 00:00 mouth in [place] 00 :00 the Medical morning Branch and 1 capsule in the evening. levothyroxi 2021-09- No [id number] 50ug Take 1 Univers ne 50 mcg -07-27 tablet by ity of tablet 00:00: 00:00 mouth [place] 00 :00 every Medical morning. Branch metformin 2021-09- No [id number] 500mg Take 1 Univers ER 500 mg 0-07-27 tablet by ity of 24 hr 00:00: 00:00 mouth [place] tablet 00 :00 daily with Medical breakfast. Branch STOP REGULAR METFORMIN. pantoprazol 2021-09- No [id number] 40mg Take 1 Univers e 40 mg EC 0-07-27 tablet by ity of tablet 00:00: 00:00 mouth in [place] 00 :00 the Medical morning. Branch pregabalin 2021-09- No [id number] 150mg Take 1 Univers 150 mg 07-27 capsule by ity of capsule 00:00: 00:00 mouth in [place] 00 :00 the Medical morning Branch and 1 capsule at noon and 1 capsule in the evening. rosuvastati 2021-09- No [id number] 10mg Take 1 Univers n 10 mg 07-27 tablet by ity of tablet 00:00: 00:00 mouth at [place] 00 :00 bedtime. Medical Branch SUMAtriptan 2021-09- No [id number] 50mg Take 1 Univers 50 mg 07-27 tablet by ity of tablet 00:00: 00:00 mouth as [place] 00 :00 needed for Medical Migraine. [place] diltiazem 2021-09- No [id number] 120mg Take 1 Univers 120 mg 24 07-27 capsule by ity of hr capsule 00:00: 00:00 mouth in [facility] 00 :00 the Medical morning Branch and 1 capsule in the evening. levothyroxi 2021-09- No [id number] 50ug Take 1 Univers ne 50 mcg 07-27 tablet by ity of tablet 00:00: 00:00 mouth [place] 00 :00 every Medical morning. [place] metformin 2021-09- No [id number] 500mg Take 1 Univers ER 500 mg 07-27 tablet by ity of 24 hr 00:00: 00:00 mouth [place] tablet 00 :00 daily with Medical breakfast. [place] STOP REGULAR METFORMIN. pantoprazol 2021-09- No [id number] 40mg Take 1 Univers e 40 mg EC 07-27 tablet by ity of tablet 00:00: 00:00 mouth in [place] 00 :00 the Medical morning. [place] pregabalin 2021-09- No [id number] 150mg Take 1 Univers 150 mg 07-27 capsule by ity of capsule 00:00: 00:00 mouth in [place] 00 :00 the Medical morning Branch and 1 capsule at noon and 1 capsule in the evening. rosuvastati 2021-09- No [id number] 10mg Take 1 Univers n 10 mg 0-13 11-01 tablet by ity of tablet 00:00: 00:00 mouth at [place] 00 :00 bedtime. Medical Branch SUMAtriptan 2021-09- No [id number] 50mg Take 1 Univers 50 mg 0-13 11-01 tablet by ity of tablet 00:00: 00:00 mouth as [place] 00 :00 needed for Medical Migraine. Branch SUMAtriptan Yes [id number] 50mg Take 1 Univers 50 mg 9-30 tablet by ity of tablet 00:00: mouth as [place] 00 needed for Medical Migraine. Branch SUMAtriptan Yes [id number] 50mg Take 1 Univers 50 mg 9-30 tablet by ity of tablet 00:00: mouth as [place] 00 needed for Medical Migraine. Branch SUMAtriptan Yes [id number] 50mg Take 1 Univers 50 mg 9-30 tablet by ity of tablet 00:00: mouth as [place] 00 needed for Medical Migraine. Branch SUMAtriptan 0 Yes [id number] 50mg Take 1 Univers 50 mg 9-30 tablet by ity of tablet 00:00: mouth as [place] 00 needed for Medical Migraine. Branch SUMAtriptan Yes [id number] 50mg Take 1 Univers 50 mg 9-30 tablet by ity of tablet 00:00: mouth as [place] 00 needed for Medical Migraine. Branch SUMAtriptan 2021- No [id number] 50mg Take 1 Univers 50 mg 9-30 10-13 tablet by ity of tablet 00:00: 00:00 mouth as [place] 00 :00 needed for Medical Migraine. Branch FOLIC ACID Yes Take by [facility] ORAL 06-17 mouth ity of 10:41: daily. [place] 15 Medical Branch MULTIVIT Yes Take by [facility] &MINERALS/F 06-17 mouth. ity of ERROUS FUM 10:41: [place] (MULTI 15 Medical VITAMIN Branch ORAL) METHYLCELLU Yes [facility] LOSE (FIBER 06-17 ity of THERAPY 10:41: [place] MISC) 15 Medical Branch DOCUSATE Yes Take by [facility] SODIUM 06-17 mouth. ity of (COLACE [...] - mouth ity of EXTRACT 10:41: daily. [place] (CRANBERRY 15 Medical ORAL) Branch CALCIUM Yes Take by [facility] ORAL - mouth ity of 10:41: daily. [place] 15 Medical Branch DOCOSAHEXAN Yes 1000mg Take 1,000 [facility] OIC 9-22 mg by ity of ACID/EPA 10:41: mouth [place] (FISH OIL 15 daily. Medical ORAL) Branch BIOTIN ORAL Yes Take by Uni vers 06-17 mouth. ity of 10:41: [place] [facility] Branch FOLIC ACID Yes Take by [facility] ORAL 06-17 mouth ity of 10:41: daily. [place] 15 Medical Branch MULTIVIT Yes Take by [facility] &MINERALS/F 06-17 mouth. ity of ERROUS FUM 10:41: [place] (MULTI 15 Medical VITAMIN Branch ORAL) METHYLCELLU Yes [facility]iver [facility] LOSE (FIBER 06-17 ity of THERAPY 10:41: [place] MISC) Medical Branch DOCUSATE Yes Take [...] - mouth ity of EXTRACT 10:41: daily. [place] (CRANBERRY 15 Medical ORAL) Branch CALCIUM Yes Take by [facility] ORAL - mouth ity of 10:41: daily. [place] 15 Medical Branch DOCOSAHEXAN Yes 1000mg Take 1,000 [facility] OIC 9-22 mg by ity of ACID/EPA 10:41: mouth [place] (FISH OIL 15 daily. Medical ORAL) Branch BIOTIN ORAL Yes Take by Uni vers - mouth. ity of 10:41: [place] 15 Medical Branch FOLIC ACID Yes Take by [facility] ORAL 06-17 mouth ity of 10:41: daily. [place] 15 Medical Branch MULTIVIT Yes Take by [facility] &MINERALS/F - mouth. ity of ERROUS FUM 10:41: [place] (MULTI 15 Medical VITAMIN Branch ORAL) METHYLCELLU Yes [facility] LOSE (FIBER - ity of THERAPY 10:41: [place] MISC) Medical Branch DOCUSATE Yes Take [...] CRANBERRY Yes Take by [facility]ive rs FRUIT 06-17 mouth ity of EXTRACT 10:41: daily. [place] (CRANBERRY 15 Medical ORAL) Branch CALCIUM Yes Take by [facility] ORAL - mouth ity of 10:41: daily. [place] [facility] Branch DOCOSAHEXAN Yes 1000mg Take 1,000 [facility] OIC 9-22 mg by ity of ACID/EPA 10:41: mouth [place] (FISH OIL 15 daily. Medical ORAL) Branch BIOTIN ORAL Yes Take by Uni vers -22 mouth. ity of 10:41: [place] [address] Medical Branch FOLIC ACID Yes Take by [facility] ORAL - mouth ity of 10:41: daily. [place] [address] Medical Branch MULTIVIT Yes Take by [facility] &MINERALS/F - mouth. ity of ERROUS FUM 10:41: [place] (MULTI 15 Medical VITAMIN Branch ORAL) METHYLCELLU Yes [facility]iver s LOSE (FIBER 9-22 ity of THERAPY 10:41: [facility]) 15 Medical Branch DOCUSATE Yes Take by [facility] SODIUM -22 mouth. ity of (COLACE 10:41: [place] ORAL) [...] Branch unit) tablet CRANBERRY Yes Take by [facility] FRUIT 06-17 mouth ity of EXTRACT 10:41: daily. [place] (CRANBERRY 15 Medical ORAL) Branch CALCIUM Yes Take by [facility] ORAL 06-17 mouth ity of 10:41: daily. [place] 15 Medical Branch DOCOSAHEXAN Yes 1000mg Take 1,000 [facility] OIC 9-22 mg by ity of ACID/EPA 10:41: mouth [place] (FISH OIL 15 daily. Medical ORAL) Branch BIOTIN ORAL Yes Take by Uni vers - mouth. ity of 10:41: [place] 15 Medical Branch FOLIC ACID Yes Take by [facility] ers ORAL - mouth ity of 10:41: daily. [place] 15 Medical Branch MULTIVIT Yes Take by [facility] &MINERALS/F 06-17 mouth. ity of ERROUS FUM 10:41: [place] (MULTI 15 Medical VITAMIN Branch ORAL) METHYLCELLU Yes [facility]iver [facility] LOSE (FIBER 9-22 ity of THERAPY 10:41: [facility]) 15 Medical Branch DOCUSATE Yes Take by [facility] SODIUM -22 mouth. ity of (COLACE 10:41: [place] ORAL) 15 Medical Branch vitamin C Yes [...] - mouth ity of EXTRACT 10:41: daily. [place] (CRANBERRY 15 Medical ORAL) Branch CALCIUM Yes Take by [facility] ORAL - mouth ity of 10:41: daily. [place] 15 Medical Branch DOCOSAHEXAN Yes 1000mg Take 1,000 [facility] OIC 9-22 mg by ity of ACID/EPA 10:41: mouth [place] (FISH OIL 15 daily. Medical ORAL) Branch BIOTIN ORAL Yes Take by [facility] vers 06-17 mouth. ity of 10:41: [place] [address] Medical Branch FOLIC ACID Yes Take by [facility] ers ORAL 06-17 mouth ity of 10:41: daily. [place] [address] Medical Branch MULTIVIT Yes Take by [facility] &MINERALS/F 06-17 mouth. ity of ERROUS FUM 10:41: [place] (MULTI 15 Medical VITAMIN Branch ORAL) METHYLCELLU Yes [facility]iver s LOSE (FIBER 06-17 ity of THERAPY 10:41: [place] MIS) Medical Branch DOCUSATE Yes Take by [...] - mouth ity of EXTRACT 10:41: daily. [place] (CRANBERRY 15 Medical ORAL) Branch CALCIUM Yes Take by [facility] ORAL - mouth ity of 10:41: daily. [place] [address] Medical Branch DOCOSAHEXAN Yes 1000mg Take 1,000 [facility] OIC 9-22 mg by ity of ACID/EPA 10:41: mouth [place] (FISH OIL 15 daily. Medical ORAL) Branch BIOTIN ORAL Yes Take by [facility] vers 9-22 mouth. ity of 10:41: [place] 15 Medical Branch FOLIC ACID Yes Take by [facility] ers ORAL 9- mouth ity of 10:41: daily. [place] 15 Medical Branch MULTIVIT Yes Take by [facility] &MINERALS/F - mouth. ity of ERROUS FUM 10:41: [place] (MULTI 15 Medical VITAMIN Branch ORAL) METHYLCELLU Yes [facility]iver s LOSE (FIBER 9-22 ity of THERAPY 10:41: [facility]) 15 Medical Branch DOCUSATE 0 Yes Take by [facility] SODIUM -22 mouth. ity of (COLACE 10:41: [place] ORAL) [...] Branch unit) tablet CRANBERRY Yes Take by [facility] FRUIT - mouth ity of EXTRACT 10:41: daily. [place] (CRANBERRY 15 Medical ORAL) Branch CALCIUM Yes Take by [facility] ORAL - mouth ity of 10:41: daily. [place] 15 Medical Branch DOCOSAHEXAN Yes 1000mg Take 1,000 [facility] OIC 9-22 mg by ity of ACID/EPA 10:41: mouth [place] (FISH OIL 15 daily. Medical ORAL) Branch BIOTIN ORAL Yes Take by Uni vers - mouth. ity of 10:41: [place] 15 Medical Branch FOLIC ACID Yes Take by [facility] ers ORAL 9-22 mouth ity of 10:41: daily. [place] 15 Medical Branch MULTIVIT Yes Take by [facility] &MINERALS/F -22 mouth. ity of ERROUS FUM 10:41: [place] (MULTI 15 Medical VITAMIN Branch ORAL) METHYLCELLU 0 Yes Univer s LOSE (FIBER 9-22 ity of THERAPY 10:41: [facility]) 15 Medical Branch DOCUSATE Yes Take by [facility] s SODIUM -22 mouth. ity of (COLACE 10:41: [place] ORAL) 15 Medical Branch vitamin C Yes 1000mg Take 1,000 [facility] with edrrell 9-22 mg by ity of hips 1,000 10:41: mouth [place] mg tablet 15 daily. Medical Branch cholecalcif Yes 1000U Take 1,000 [facility] edmar, 9-22 Units by ity of vitamin D3, 10:41: mouth [place] 25 mcg 15 daily. Medical (1,000 Branch unit) tablet CRANBERRY Yes Take by [facility]ive rs FRUIT 06-17 mouth ity of EXTRACT 10:41: daily. [place] (CRANBERRY 15 Medical ORAL) Branch CALCIUM Yes Take by [facility] ORAL 06-17 mouth ity of 10:41: daily. [place] 15 Medical Branch DOCOSAHEXAN Yes 1000mg Take 1,000 [facility] OIC 9-22 mg by ity of ACID/EPA 10:41: mouth [place] (FISH OIL 15 daily. Medical ORAL) Branch BIOTIN ORAL Yes Take by [facility] vers 06-17 mouth. ity of 10:41: [place] [address] Medical Branch FOLIC ACID Yes Take by [facility] ORAL 06-17 mouth ity of 10:41: daily. [place] [address] Medical Branch MULTIVIT Yes Take by [facility] &MINERALS/F 06-17 mouth. ity of ERROUS FUM 10:41: [place] (MULTI 15 Medical VITAMIN Branch ORAL) METHYLCELLU Yes [facility]iver s LOSE (FIBER 06-17 ity of THERAPY 10:41: [facility]) 15 Medical Branch DOCUSATE Yes Take [...] Branch unit) tablet CRANBERRY Yes Take by [facility] FRUIT - mouth ity of EXTRACT 10:41: daily. [place] (CRANBERRY 15 Medical ORAL) Branch CALCIUM Yes Take by [facility] ORAL 9-22 mouth ity of 10:41: daily. [place] 15 Medical Branch DOCOSAHEXAN Yes 1000mg Take 1,000 [facility] OIC 9-22 mg by ity of ACID/EPA 10:41: mouth [place] (FISH OIL 15 daily. Medical ORAL) Branch BIOTIN ORAL Yes Take by [facility] vers 06-17 mouth. ity of 10:41: [place] 15 Medical Branch FOLIC ACID Yes Take by [facility] ers ORAL - mouth ity of 10:41: daily. [place] 15 Medical Branch MULTIVIT Yes Take by [facility] &MINERALS/F 06-17 mouth. ity of ERROUS FUM 10:41: [place] (MULTI 15 Medical VITAMIN Branch ORAL) METHYLCELLU Yes [facility]iver s LOSE (FIBER 06-17 ity of THERAPY 10:41: [facility]) 15 Medical Branch DOCUSATE Yes Take [...] Branch unit) tablet CRANBERRY Yes Take by [facility] FRUIT 06-17 mouth ity of EXTRACT 10:41: daily. [place] (CRANBERRY 15 Medical ORAL) Branch CALCIUM Yes Take by [facility] ORAL - mouth ity of 10:41: daily. [place] 15 Medical Branch DOCOSAHEXAN Yes 1000mg Take 1,000 [facility] OIC 9-22 mg by ity of ACID/EPA 10:41: mouth [place] (FISH OIL 15 daily. Medical ORAL) Branch BIOTIN ORAL Yes Take by [facility] vers - mouth. ity of 10:41: [place] 15 Medical Branch FOLIC ACID Yes Take by [facility] ers ORAL - mouth ity of 10:41: daily. [place] 15 Medical Branch MULTIVIT 2022-0 Yes Take by [facility] &MINERALS/F 9-22 mouth. ity of ERROUS FUM 10:41: [place] (MULTI 15 Medical VITAMIN Branch ORAL) METHYLCELLU 0 Yes Univer s LOSE (FIBER 9-22 ity of THERAPY 10:41: [facility]) 15 Medical Branch DOCUSATE 0 Yes Take by [...] Branch unit) tablet CRANBERRY Yes Take by [facility] FRUIT - mouth ity of EXTRACT 10:41: daily. [place] (CRANBERRY 15 Medical ORAL) Branch CALCIUM Yes Take by [facility] ORAL -22 mouth ity of 10:41: daily. [place] [address] Medical Branch DOCOSAHEXAN Yes 1000mg Take 1,000 [facility] OIC 9-22 mg by ity of ACID/EPA 10:41: mouth [place] (FISH OIL 15 daily. Medical ORAL) Branch BIOTIN ORAL Yes Take by [facility] vers -22 mouth. ity of 10:41: [place] [address] Medical Branch FOLIC ACID Yes Take by [facility] vers ORAL 9-22 mouth ity of 10:41: daily. [place] [address] Medical Branch MULTIVIT Yes Take by [facility] &MINERALS/F 9-22 mouth. ity of ERROUS FUM 10:41: [place] (MULTI 15 Medical VITAMIN Branch ORAL) METHYLCELLU 0 Yes Univer s LOSE (FIBER 9-22 ity of THERAPY 10:41: [facility]) Medical Branch DOCUSATE 0 Yes Take by [facility] SODIUM 9-22 mouth. ity of (COLACE [...] - mouth ity of EXTRACT 10:41: daily. [place] (CRANBERRY 15 Medical ORAL) Branch CALCIUM Yes Take by [facility] ORAL - mouth ity of 10:41: daily. [place] 15 Medical Branch DOCOSAHEXAN Yes 1000mg Take 1,000 [facility] OIC 9-22 mg by ity of ACID/EPA 10:41: mouth [place] (FISH OIL 15 daily. Medical ORAL) Branch BIOTIN ORAL Yes Take by [facility] vers 06-17 mouth. ity of 10:41: [place] [address] Medical Branch FOLIC ACID Yes Take by [facility] ers ORAL 06-17 mouth ity of 10:41: daily. [place] [address] Medical Branch MULTIVIT Yes Take by [facility] &MINERALS/F 06-17 mouth. ity of ERROUS FUM 10:41: [place] (MULTI 15 Medical VITAMIN Branch ORAL) METHYLCELLU Yes Univer s LOSE (FIBER 06-17 ity of THERAPY 10:41: [place] MISC) Medical Branch DOCUSATE Yes Take [...] - mouth ity of EXTRACT 10:41: daily. [place] (CRANBERRY 15 Medical ORAL) Branch CALCIUM Yes Take by [facility] ORAL - mouth ity of 10:41: daily. [place] 15 Medical Branch DOCOSAHEXAN Yes 1000mg Take 1,000 [facility] OIC 9-22 mg by ity of ACID/EPA 10:41: mouth [place] (FISH OIL 15 daily. Medical ORAL) Branch BIOTIN ORAL Yes Take by [facility] vers 9-22 mouth. ity of 10:41: [place] 15 Medical Branch FOLIC ACID 0 Yes Take by [facility] ers ORAL - mouth ity of 10:41: daily. [place] 15 Medical Branch MULTIVIT Yes Take by [facility] s &MINERALS/F - mouth. ity of ERROUS FUM 10:41: [place] (MULTI 15 Medical VITAMIN Branch ORAL) METHYLCELLU 0 Yes Univer s LOSE (FIBER - ity of THERAPY 10:41: [facility]) 15 Medical Branch DOCUSATE Yes Take [...] - mouth ity of EXTRACT 10:41: daily. [place] (CRANBERRY 15 Medical ORAL) Branch CALCIUM Yes Take by [facility] ORAL 9- mouth ity of 10:41: daily. [place] Medical Branch DOCOSAHEXAN Yes 1000mg Take 1,000 [facility] OIC 9-22 mg by ity of ACID/EPA 10:41: mouth [place] (FISH OIL 15 daily. Medical ORAL) Branch BIOTIN ORAL Yes Take by [facility] vers 9-22 mouth. ity of 10:41: [place] 15 Medical Branch FOLIC ACID 0 Yes Take by [facility] ers ORAL - mouth ity of 10:41: daily. [place] 15 Medical Branch MULTIVIT 0 Yes Take by [facility] &MINERALS/F - mouth. ity of ERROUS FUM 10:41: [place] (MULTI 15 Medical VITAMIN Branch ORAL) METHYLCELLU 0 Yes Univer s LOSE (FIBER 9-22 ity of THERAPY 10:41: [place] MISC) 15 Medical Branch vitamin C Yes 1000mg Take 1,000 [facility] with derrell 9-22 mg by ity of hips 1,000 10:41: mouth [place] mg tablet 15 daily. Medical Branch cholecalcif Yes 1000U Take 1,000 [facility] edmar, 9-22 Units by ity of vitamin D3, 10:41: mouth [place] 25 mcg 15 daily. Medical (1,000 Branch unit) tablet CRANBERRY Yes Take by [facility]ive rs FRUIT 06-17 mouth ity of EXTRACT 10:41: daily. [place] (CRANBERRY 15 Medical ORAL) Branch CALCIUM Yes Take by [facility] ORAL 06-17 mouth ity of 10:41: daily. [place] [address] Medical Branch DOCOSAHEXAN Yes 1000mg Take 1,000 [facility] OIC 9-22 mg by ity of ACID/EPA 10:41: mouth [place] (FISH OIL 15 daily. Medical ORAL) Branch BIOTIN ORAL Yes Take by Uni vers 06-17 mouth. ity of 10:41: [place] [address] Medical Branch FOLIC ACID Yes Take by [facility] ers ORAL 06-17 mouth ity of 10:41: daily. [place] [address] Medical Branch MULTIVIT Yes Take by [facility] &MINERALS/F 06-17 mouth. ity of ERROUS FUM 10:41: [place] (MULTI 15 Medical VITAMIN Branch ORAL) METHYLCELLU Yes Univer s LOSE (FIBER 06-17 ity of THERAPY 10:41: [facility]) 15 Medical Branch vitamin C Yes 1000mg [...] - mouth ity of EXTRACT 10:41: daily. [place] (CRANBERRY 15 Medical ORAL) Branch CALCIUM Yes Take by [facility] ORAL - mouth ity of 10:41: daily. [place] [address] Medical Branch DOCOSAHEXAN Yes 1000mg Take 1,000 [facility] OIC 9-22 mg by ity of ACID/EPA 10:41: mouth [place] (FISH OIL 15 daily. Medical ORAL) Branch BIOTIN ORAL 0 Yes Take by Uni vers - mouth. ity of 10:41: [place] 15 Medical Branch FOLIC ACID 0 Yes Take by [facility] ers ORAL - mouth ity of 10:41: daily. [place] 15 Medical Branch MULTIVIT 0 Yes Take by [facility] s &MINERALS/F - mouth. ity of ERROUS FUM 10:41: [place] (MULTI 15 Medical VITAMIN Branch ORAL) METHYLCELLU 0 Yes Univer s LOSE (FIBER - ity of THERAPY 10:41: [facility]) 15 Medical Branch vitamin C Yes 1000mg [...] - mouth ity of EXTRACT 10:41: daily. [place] (CRANBERRY 15 Medical ORAL) Branch CALCIUM Yes Take by [facility] ORAL - mouth ity of 10:41: daily. [place] 15 Medical Branch DOCOSAHEXAN Yes 1000mg Take 1,000 [facility] OIC 9-22 mg by ity of ACID/EPA 10:41: mouth [place] (FISH OIL 15 daily. Medical ORAL) Branch BIOTIN ORAL Yes Take by Uni vers -22 mouth. ity of 10:41: [place] 15 Medical Branch FOLIC ACID 0 Yes Take by [facility] ers ORAL - mouth ity of 10:41: daily. [place] 15 Medical Branch MULTIVIT 0 Yes Take by [facility] s &MINERALS/F - mouth. ity of ERROUS FUM 10:41: [place] (MULTI 15 Medical VITAMIN Branch ORAL) METHYLCELLU 0 Yes Univer s LOSE (FIBER 9-22 ity of THERAPY 10:41: [facility]) 15 Medical Branch vitamin C 0 Yes 1000mg Take 1,000 [facility] with derrell 9-22 mg by ity of hips 1,000 10:41: mouth [place] mg tablet 15 daily. Medical Branch cholecalcif Yes 1000U Take 1,000 [facility] edmar, 9-22 Units by ity of vitamin D3, 10:41: mouth [place] 25 mcg 15 daily. Medical (1,000 Branch unit) tablet CRANBERRY Yes Take by [facility]ive rs FRUIT 06-17 mouth ity of EXTRACT 10:41: daily. [place] (CRANBERRY 15 Medical ORAL) Branch CALCIUM Yes Take by [facility] ORAL 06-17 mouth ity of 10:41: daily. [place] 15 Medical Branch DOCOSAHEXAN Yes 1000mg Take 1,000 [facility] OIC 9-22 mg by ity of ACID/EPA 10:41: mouth [place] (FISH OIL 15 daily. Medical ORAL) Branch BIOTIN ORAL Yes Take by Uni vers 06-17 mouth. ity of 10:41: [place] [address] Medical Branch FOLIC ACID Yes Take by [facility] ers ORAL 06-17 mouth ity of 10:41: daily. [place] [address] Medical Branch MULTIVIT Yes Take by [facility] &MINERALS/F 06-17 mouth. ity of ERROUS FUM 10:41: [place] (MULTI 15 Medical VITAMIN Branch ORAL) METHYLCELLU Yes [facility] s LOSE (FIBER 06-17 ity of THERAPY 10:41: [place] MIS) Medical Branch vitamin C Yes 1000mg Take [...] - mouth ity of EXTRACT 10:41: daily. [place] (CRANBERRY 15 Medical ORAL) Branch CALCIUM Yes Take by [facility] ORAL 06-17 mouth ity of 10:41: daily. [place] 15 Medical Branch DOCOSAHEXAN Yes 1000mg Take 1,000 [facility] OIC 9-22 mg by ity of ACID/EPA 10:41: mouth [place] (FISH OIL 15 daily. Medical ORAL) Branch BIOTIN ORAL 2021-0 Yes Take by Uni vers 9-22 mouth. ity of 10:41: [place] 15 Medical Branch SUMAtriptan 2-0 Yes [id number] 50mg Take 1 Univers 50 mg 9-22 tablet by ity of tablet 00:00: mouth as [place] 00 needed for Medical Migraine. Branch topiramate 2-0 Yes [id number] 75mg Take 3 Univers 25 mg 9-22 tablets by ity of tablet 00:00: mouth in [place] 00 the Medical morning Branch and 3 tablets in the evening. SUMAtriptan 2-0 Yes [id number] 50mg Take 1 [facility] 50 mg 9-22 tablet by ity of tablet 00:00: mouth as [place] 00 needed for Medical Migraine. Branch topiramate 2021-0 Yes [id number] 75mg Take 3 [facility] 25 mg 9-22 tablets by ity of tablet 00:00: mouth in [place] 00 the Medical morning Branch and 3 tablets in the evening. SUMAtriptan 2-0 Yes [id number] 50mg Take 1 [facility] 50 mg 9-22 tablet by ity of tablet 00:00: mouth as [place] 00 needed for Medical Migraine. Branch topiramate 2021-0 Yes [id number] 75mg Take 3 [facility] 25 mg 9-22 tablets by ity of tablet 00:00: mouth in [place] 00 the Medical morning Branch and 3 tablets in the evening. SUMAtriptan 2-0 Yes [id number] 50mg Take 1 [facility] 50 mg 9-22 tablet by ity of tablet 00:00: mouth as [place] 00 needed for Medical Migraine. Branch topiramate 2-0 Yes [id number] 75mg Take 3 [facility] 25 mg 9-22 tablets by ity of tablet 00:00: mouth in [place] 00 the Medical morning Branch and 3 tablets in the evening. topiramate 2022-0 Yes [id number] 75mg Take 3 [facility] 25 mg 9-22 tablets by ity of tablet 00:00: mouth in [place] 00 the Medical morning Branch and 3 tablets in the evening. topiramate 2022-0 Yes [id number] 75mg Take 3 [facility] 25 mg 9-22 tablets by ity of tablet 00:00: mouth in [place] 00 the Medical morning Branch and 3 tablets in the evening. topiramate 2022-0 Yes [id number] 75mg Take 3 [facility] 25 mg 9-22 tablets by ity of tablet 00:00: mouth in [place] 00 the Medical morning Branch and 3 tablets in the evening. topiramate 2021-0 Yes [id number] 75mg Take 3 [facility] 25 mg 9-22 tablets by ity of tablet 00:00: mouth in [place] 00 the Medical morning Branch and 3 tablets in the evening. topiramate 2021-0 Yes [id number] 75mg Take 3 [facility] 25 mg 9-22 tablets by ity of tablet 00:00: mouth in [place] 00 the Medical morning Branch and 3 tablets in the evening. topiramate 2021-0 Yes [id number] 75mg Take 3 [facility] 25 mg 9-22 tablets by ity of tablet 00:00: mouth in [place] 00 the Medical morning Branch and 3 tablets in the evening. topiramate 2021-0 2021- No [id number] 75mg Take 3 [facility] 25 mg 9-22 10-13 tablets by ity of tablet 00:00: 00:00 mouth in [place] 00 :00 the Medical morning Branch and 3 tablets in the evening. SUMAtriptan 2021-0 2021- No [id number] 50mg Take 1 [facility] 50 mg 9-22 09-30 tablet by ity of tablet 00:00: 00:00 mouth as [place] 00 :00 needed for Medical Migraine. Branch pantoprazol 0 Yes [id number] 40mg Take 1 Univers e 40 mg EC 9-16 tablet by ity of tablet 00:00: mouth in [place] 00 the Medical morning. Branch Simethicone 2021-0 Yes [id number] 125mg Take 1 [facility] 125 mg 9-16 capsule by ity of 00:00: mouth [place] 00 after Medical meals and Branch at bedtime as needed for Gas (Per bowel prep). pantoprazol 2021-0 Yes [id number] 40mg Take 1 [facility] e 40 mg EC 9-16 tablet by ity of tablet 00:00: mouth in [place] 00 the Medical morning. Branch Simethicone 2021-0 Yes [id number] 125mg Take 1 [facility] 125 mg 9-16 capsule by ity of 00:00: mouth [place] 00 after Medical meals and Branch at bedtime as needed for Gas (Per bowel prep). pantoprazol 2021-0 Yes [id number] 40mg Take 1 [facility] e 40 mg EC 9-16 tablet by ity of tablet 00:00: mouth in [place] 00 the Medical morning. Branch Simethicone 2021-0 Yes [id number] 125mg Take 1 [facility] 125 mg 9-16 capsule by ity of 00:00: mouth [place] 00 after Medical meals and Branch at bedtime as needed for Gas (Per bowel prep). pantoprazol 0 Yes [id number] 40mg Take 1 [facility] e 40 mg EC 9-16 tablet by ity of tablet 00:00: mouth in [place] 00 the Medical morning. Branch Simethicone 0 Yes [id number] 125mg Take 1 [facility] 125 mg 9-16 capsule by ity of 00:00: mouth [place] 00 after Medical meals and Branch at bedtime as needed for Gas (Per bowel prep). pantoprazol 0 Yes [id number] 40mg Take 1 [facility] e 40 mg EC 9-16 tablet by ity of tablet 00:00: mouth in [place] 00 the Medical morning. Branch Simethicone 0 Yes [id number] 125mg Take 1 [facility] 125 mg 9-16 capsule by ity of 00:00: mouth [place] 00 after Medical meals and Branch at bedtime as needed for Gas (Per bowel prep). pantoprazol 0 Yes [id number] 40mg Take 1 [facility] e 40 mg EC 9-16 tablet by ity of tablet 00:00: mouth in [place] 00 the Medical morning. Branch Simethicone 0 Yes [id number] 125mg Take 1 [facility] 125 mg 9-16 capsule by ity of 00:00: mouth [place] 00 after Medical meals and Branch at bedtime as needed for Gas (Per bowel prep). pantoprazol 2021-0 Yes [id number] 40mg Take 1 [facility] e 40 mg EC 9-16 tablet by ity of tablet 00:00: mouth in [place] 00 the Medical morning. Branch Simethicone 0 Yes [id number] 125mg Take 1 [facility] 125 mg 9-16 capsule by ity of 00:00: mouth [place] 00 after Medical meals and Branch at bedtime as needed for Gas (Per bowel prep). pantoprazol 2021-0 Yes [id number] 40mg Take 1 [facility] e 40 mg EC 9-16 tablet by ity of tablet 00:00: mouth in [place] 00 the Medical morning. Branch Simethicone 0 Yes [id number] 125mg Take 1 [facility] 125 mg 9-16 capsule by ity of 00:00: mouth [place] 00 after Medical meals and Branch at bedtime as needed for Gas (Per bowel prep). pantoprazol 0 Yes [id number] 40mg Take 1 [facility] e 40 mg EC 9-16 tablet by ity of tablet 00:00: mouth in [place] 00 the Medical morning. Branch Simethicone 0 Yes [id number] 125mg Take 1 [facility] 125 mg 9-16 capsule by ity of 00:00: mouth [place] 00 after Medical meals and Branch at bedtime as needed for Gas (Per bowel prep). pantoprazol Yes [id number] 40mg Take 1 [facility] e 40 mg EC 9-16 tablet by ity of tablet 00:00: mouth in [place] 00 the Medical morning. Branch Simethicone Yes [id number] 125mg Take 1 [facility] 125 mg 9-16 capsule by ity of 00:00: mouth [place] 00 after Medical meals and Branch at bedtime as needed for Gas (Per bowel prep). pantoprazol Yes [id number] 40mg Take 1 [facility] e 40 mg EC 9-16 tablet by ity of tablet 00:00: mouth in [place] 00 the Medical morning. Branch Simethicone 0 Yes [id number] 125mg Take 1 [facility] 125 mg 9-16 capsule by ity of 00:00: mouth [place] 00 after Medical meals and Branch at bedtime as needed for Gas (Per bowel prep). pantoprazol 2021-0 Yes [id number] 40mg Take 1 [facility] e 40 mg EC 9-16 tablet by ity of tablet 00:00: mouth in [place] 00 the Medical morning. Branch Simethicone Yes [id number] 125mg Take 1 [facility] 125 mg 9-16 capsule by ity of 00:00: mouth [place] 00 after Medical meals and Branch at bedtime as needed for Gas (Per bowel prep). pantoprazol 2021-0 Yes [id number] 40mg Take 1 [facility] e 40 mg EC 9-16 tablet by ity of tablet 00:00: mouth in [place] 00 the Medical morning. Branch Simethicone 0 Yes [id number] 125mg Take 1 [facility] 125 mg 9-16 capsule by ity of 00:00: mouth [place] 00 after Medical meals and Branch at bedtime as needed for Gas (Per bowel prep). pantoprazol Yes [id number] 40mg Take 1 [facility] e 40 mg EC 9-16 tablet by ity of tablet 00:00: mouth in [place] 00 the Medical morning. Branch Simethicone 0 Yes [id number] 125mg Take 1 [facility] 125 mg 9-16 capsule by ity of 00:00: mouth [place] 00 after Medical meals and Branch at bedtime as needed for Gas (Per bowel prep). pantoprazol Yes [id number] 40mg Take 1 [facility] e 40 mg EC 9-16 tablet by ity of tablet 00:00: mouth in [place] 00 the Medical morning. Branch Simethicone Yes [id number] 125mg Take 1 [facility] 125 mg 9-16 capsule by ity of 00:00: mouth [place] 00 after Medical meals and Branch at bedtime as needed for Gas (Per bowel prep). Simethicone 0 Yes [id number] 125mg Take 1 [facility] 125 mg 9-16 capsule by ity of 00:00: mouth [place] 00 after Medical meals and Branch at bedtime as needed for Gas (Per bowel prep). Simethicone Yes [id number] 125mg Take 1 [facility] 125 mg 9-16 capsule by ity of 00:00: mouth [place] 00 after Medical meals and Branch at bedtime as needed for Gas (Per bowel prep). Simethicone 2021- No [id number] 125mg Take 1 [facility] 125 mg 9-16 11-01 capsule by ity of 00:00: 00:00 mouth [place] 00 :00 after Medical meals and Branch at bedtime as needed for Gas (Per bowel prep). Simethicone 0 2021- No [id number] 125mg Take 1 [facility] 125 mg 9-16 11-01 capsule by [facility] 00:00: 00:00 mouth [place] 00 :00 after Medical meals and Branch at bedtime as needed for Gas (Per bowel prep). pantoprazol 2- No [id number] 40mg Take 1 [facility] e 40 mg EC 9-16 10-13 tablet by [facility] tablet 00:00: 00:00 mouth in [place] 00 :00 the Medical morning. Branch SUMAtriptan 2022-0 Yes [id number] TAKE 1 [facility] 50 mg 9-06 TABLET BY [facility] tablet 00:00: MOUTH [place] 00 NEEDED FOR Medical MIGRAINE Branch HEADACHE ( MAY REPEAT IN 2 HOURS ) SUMAtriptan 2022-0 Yes [id number] TAKE 1 [facility] 50 mg 9-06 TABLET BY [facility] tablet 00:00: MOUTH [place] 00 NEEDED FOR Medical MIGRAINE Branch HEADACHE ( MAY REPEAT IN 2 HOURS ) SUMAtriptan 2022-0 Yes [id number] TAKE 1 [facility] 50 mg 9-06 TABLET BY [facility] tablet 00:00: MOUTH [place] 00 NEEDED FOR Medical MIGRAINE Branch HEADACHE ( MAY REPEAT IN 2 HOURS ) SUMAtriptan 2022-0 Yes [id number] TAKE 1 [facility] 50 mg 9-06 TABLET BY [facility] tablet 00:00: MOUTH [place] 00 NEEDED FOR Medical MIGRAINE Branch HEADACHE ( MAY REPEAT IN 2 HOURS ) SUMAtriptan 2022-0 Yes [id number] TAKE 1 [facility] 50 mg 9-06 TABLET BY [facility] tablet 00:00: MOUTH [place] 00 NEEDED FOR Medical MIGRAINE Branch HEADACHE ( MAY REPEAT IN 2 HOURS ) SUMAtriptan 2022-0 Yes [id number] TAKE 1 [facility] 50 mg 9-06 TABLET BY [facility] tablet 00:00: MOUTH [place] 00 NEEDED FOR Medical MIGRAINE Branch HEADACHE ( MAY REPEAT IN 2 HOURS ) SUMAtriptan 2022-0 Yes [id number] TAKE 1 [facility] 50 mg 9-06 TABLET BY [facility] tablet 00:00: MOUTH [place] 00 NEEDED FOR Medical MIGRAINE Branch HEADACHE ( MAY REPEAT IN 2 HOURS ) SUMAtriptan 2022-0 Yes [id number] TAKE 1 [facility] 50 mg 9-06 TABLET BY [facility] tablet 00:00: MOUTH [place] 00 NEEDED FOR Medical MIGRAINE Branch HEADACHE ( MAY REPEAT IN 2 HOURS ) SUMAtriptan 2022-0 Yes [id number] TAKE 1 [facility] 50 mg 9-06 TABLET BY [facility] tablet 00:00: MOUTH [place] 00 NEEDED FOR Medical MIGRAINE Branch HEADACHE ( MAY REPEAT IN 2 HOURS ) SUMAtriptan 2022-0 Yes [id number] TAKE 1 [facility] 50 mg 9-06 TABLET BY [facility] tablet 00:00: MOUTH [place] 00 NEEDED FOR Medical MIGRAINE Branch HEADACHE ( MAY REPEAT IN 2 HOURS ) SUMAtriptan 2022-0 Yes [id number] TAKE 1 [facility] 50 mg 9-06 TABLET BY [facility] tablet 00:00: MOUTH [place] 00 NEEDED FOR Medical MIGRAINE Branch HEADACHE ( MAY REPEAT IN 2 HOURS ) SUMAtriptan 2-0 Yes [id number] TAKE 1 [facility] 50 mg 9-06 TABLET BY [facility] tablet 00:00: MOUTH [place] 00 NEEDED FOR Medical MIGRAINE Branch HEADACHE ( MAY REPEAT IN 2 HOURS ) SUMAtriptan 2-0 2- No [id number] TAKE 1 [facility] 50 mg 9-06 -22 TABLET BY [facility] tablet 00:00: 00:00 MOUTH [place] 00 :00 NEEDED FOR Medical MIGRAINE Branch HEADACHE ( MAY REPEAT IN 2 HOURS ) SUMAtriptan 2021-0 2021- No [id number] TAKE 1 [facility] 50 mg 9-06 -22 TABLET BY [facility] tablet 00:00: 00:00 MOUTH [place] 00 :00 NEEDED FOR Medical MIGRAINE Branch HEADACHE ( MAY REPEAT IN 2 HOURS ) SUMAtriptan 2021-0 2- No [id number] TAKE 1 [facility] 50 mg 9-06 -22 TABLET BY [facility] tablet 00:00: 00:00 MOUTH [place] 00 :00 NEEDED FOR Medical MIGRAINE Branch HEADACHE ( MAY REPEAT IN 2 HOURS ) topiramate 2022-0 Yes [id number] Take 2 [facility] 25 mg 9-01 tablets by [facility] tablet 00:00: mouth [place] 00 twice Medical daily Branch topiramate 2022-0 Yes [id number] Take 2 [facility] 25 mg 9-01 tablets by [facility] tablet 00:00: mouth [place] 00 twice Medical daily Branch topiramate 2022-0 Yes [id number] Take 2 [facility] 25 mg 9-01 tablets by [facility] tablet 00:00: mouth [place] 00 twice Medical daily Branch topiramate 2022-0 Yes [id number] Take 2 [facility] 25 mg 9-01 tablets by [facility] tablet 00:00: mouth [place] 00 twice Medical daily Branch topiramate 2022-0 Yes [id number] Take 2 [facility] 25 mg 9-01 tablets by [facility] tablet 00:00: mouth [place] 00 twice Medical daily Branch topiramate 2022-0 Yes [id number] Take 2 [facility] 25 mg 9-01 tablets by [facility] tablet 00:00: mouth [place] 00 twice Medical daily Branch topiramate 2022-0 Yes [id number] Take 2 [facility] 25 mg 9-01 tablets by [facility] tablet 00:00: mouth 00 twice Medical daily Branch topiramate 2022-0 Yes [id number] Take 2 [facility] 25 mg 9-01 tablets by [facility] tablet 00:00: mouth 00 twice Medical daily Branch topiramate 2-0 Yes [id number] Take 2 [facility] 25 mg 9-01 tablets by [facility] tablet 00:00: mouth 00 twice Medical daily Branch topiramate 2-0 Yes [id number] Take 2 [facility] 25 mg 9-01 tablets by [facility] tablet 00:00: mouth 00 twice Medical daily Branch topiramate 2-0 Yes [id number] Take 2 [facility] 25 mg 9-01 tablets by [facility] tablet 00:00: mouth 00 twice Medical daily Branch topiramate 2-0 Yes [id number] Take 2 [facility] 25 mg 9-01 tablets by [facility] tablet 00:00: [facility] 00 twice Medical daily Branch topiramate 2-0 Yes [id number] Take 2 [facility] 25 mg 9-01 tablets by it[facility] of tablet 00:00: mouth 00 twice Medical daily Branch topiramate 2021-0 Yes [id number] Take 2 [facility] 25 mg 9-01 tablets by [facility] of tablet 00:00: mouth 00 twice Medical daily Branch topiramate 2021-0 Yes [id number] Take 2 [facility] 25 mg 9-01 tablets by [facility] of tablet 00:00: [facility] 00 twice Medical daily Branch topiramate 2022-0 2- No [id number] Take 2 [facility] 25 mg 9-01 09-22 tablets by [facility] of tablet 00:00: 00:00 mouth [place] 00 :00 twice Medical daily Branch topiramate 2022-0 2- No [id number] Take 2 [facility] 25 mg 9-01 09-22 tablets by [facility] of tablet 00:00: 00:00 mouth [place] 00 :00 twice Medical daily Branch topiramate 2022-0 2- No [id number] Take 2 [facility] 25 mg 9-01 09-22 tablets by [facility] of tablet 00:00: 00:00 mouth [place] 00 :00 twice Medical daily Branch methocarbam 2022-0 Yes [id number] 500mg Take 1 [facility] oL 500 mg 8-11 tablet by it[facility] o f tablet 00:00: mouth [place] 00 (four) Medical times Branch daily as needed for Pain (scale 7-10). methocarbam 2022-0 Yes [id number] 500mg Take 1 [facility] oL 500 mg 8-11 tablet by it[facility] o f tablet 00:00: mouth (four) Medical times Branch daily as needed for Pain (scale 7-10). methocarbam 2022-0 Yes [id number] 500mg Take 1 [facility] oL 500 mg 8-11 tablet by it[facility] o f tablet 00:00: mouth (four) Medical times Branch daily as needed for Pain (scale 7-10). methocarbam 2022-0 Yes [id number] 500mg Take 1 [facility] oL 500 mg 8-11 tablet by it[facility] o f tablet 00:00: mouth (four) Medical times Branch daily as needed for Pain (scale 7-10). methocarbam 2022-0 Yes [id number] 500mg Take 1 [facility] oL 500 mg 8-11 tablet by it[facility] o f tablet 00:00: mouth (four) Medical times Branch daily as needed for Pain (scale 7-10). methocarbam 2-0 Yes [id number] 500mg Take 1 [facility] oL 500 mg 8-11 tablet by it[facility] o f tablet 00:00: mouth (four) Medical times Branch daily as needed for Pain (scale 7-10). methocarbam 2022-0 Yes [id number] 500mg Take 1 [facility] oL 500 mg 8-11 tablet by it[facility] o f tablet 00:00: mouth (four) Medical times Branch daily as needed for Pain (scale 7-10). methocarbam 2022-0 Yes [id number] 500mg Take 1 [facility] oL 500 mg 8-11 tablet by it[facility] o f tablet 00:00: mouth (four) Medical times Branch daily as needed for Pain (scale 7-10). methocarbam 2022-0 Yes [id number] 500mg Take 1 [facility] oL 500 mg 8-11 tablet by it[facility] o f tablet 00:00: mouth (four) Medical times Branch daily as needed for Pain (scale 7-10). methocarbam 2022-0 Yes [id number] 500mg Take 1 [facility] oL 500 mg 8-11 tablet by it[facility] o f tablet 00:00: mouth (four) Medical times Branch daily as needed for Pain (scale 7-10). methocarbam 2022-0 Yes [id number] 500mg Take 1 [facility] oL 500 mg 8-11 tablet by it[facility] o f tablet 00:00: mouth (four) Medical times Branch daily as needed for Pain (scale 7-10). methocarbam 2-0 Yes [id number] 500mg Take 1 [facility] oL 500 mg 8-11 tablet by it[facility] o f tablet 00:00: mouth (four) Medical times Branch daily as needed for Pain (scale 7-10). methocarbam 2022-0 Yes [id number] 500mg Take 1 [facility] oL 500 mg 8-11 tablet by it[facility] o f tablet 00:00: mouth (four) Medical times Branch daily as needed for Pain (scale 7-10). methocarbam 2-0 Yes [id number] 500mg Take 1 [facility] oL 500 mg 8-11 tablet by it[facility] o f tablet 00:00: mouth (four) Medical times Branch daily as needed for Pain (scale 7-10). methocarbam 2-0 Yes [id number] 500mg Take 1 [facility] oL 500 mg 8-11 tablet by it[facility] o f tablet 00:00: mouth (four) Medical times Branch daily as needed for Pain (scale 7-10). methocarbam 2-0 Yes [id number] 500mg Take 1 [facility] oL 500 mg 8-11 tablet by it[facility] o f tablet 00:00: mouth (four) Medical times Branch daily as needed for Pain (scale 7-10). methocarbam 2-0 Yes [id number] 500mg Take 1 [facility] oL 500 mg 8-11 tablet by ity o f tablet 00:00: mouth (four) Medical times Branch daily as needed for Pain (scale 7-10). methocarbam 2-0 Yes [id number] 500mg Take 1 [facility] oL 500 mg 8-11 tablet by ity o f tablet 00:00: mouth (four) Medical times Branch daily as needed for Pain (scale 7-10). methocarbam 2022-0 Yes [id number] 500mg Take 1 [facility] oL 500 mg 8-11 tablet by ity o f tablet 00:00: mouth (four) Medical times Branch daily as needed for Pain (scale 7-10). methocarbam 2022-0 Yes [id number] 500mg Take 1 [facility] oL 500 mg 8-11 tablet by ity o f tablet 00:00: mouth (four) Medical times Branch daily as needed for Pain (scale 7-10). methocarbam 2-0 Yes [id number] 500mg Take 1 [facility] oL 500 mg 8-11 tablet by ity o f tablet 00:00: mouth (four) Medical times Branch daily as needed for Pain (scale 7-10). methocarbam 2-0 Yes [id number] 500mg Take 1 [facility] oL 500 mg 8-11 tablet by ity o f tablet 00:00: mouth (four) Medical times Branch daily as needed for Pain (scale 7-10). methocarbam 2-0 Yes [id number] 500mg Take 1 [facility] oL 500 mg 8-11 tablet by ity o f tablet 00:00: mouth (four) Medical times Branch daily as needed for Pain (scale 7-10). methocarbam 2-0 Yes [id number] 500mg Take 1 [facility] oL 500 mg 8-11 tablet by it[facility] o f tablet 00:00: mouth (four) Medical times Branch daily as needed for Pain (scale 7-10). methocarbam 2-0 Yes [id number] 500mg Take 1 [facility] oL 500 mg 8-11 tablet by it[facility] o f tablet 00:00: mouth (four) Medical times Branch daily as needed for Pain (scale 7-10). methocarbam 2-0 Yes [id number] 500mg Take 1 [facility] oL 500 mg 8-11 tablet by ity o f tablet 00:00: mouth (four) Medical times Branch daily as needed for Pain (scale 7-10). methocarbam 2-0 Yes [id number] 500mg Take 1 [facility] oL 500 mg 8-11 tablet by ity o f tablet 00:00: mouth (four) Medical times Branch daily as needed for Pain (scale 7-10). methocarbam 2-0 Yes [id number] 500mg Take 1 [facility] oL 500 mg 8-11 tablet by ity o f tablet 00:00: mouth (four) Medical times Branch daily as needed for Pain (scale 7-10). methocarbam 2-0 Yes [id number] 500mg Take 1 [facility] oL 500 mg 8-11 tablet by ity o f tablet 00:00: mouth (four) Medical times Branch daily as needed for Pain (scale 7-10). methocarbam 2-0 Yes [id number] 500mg Take 1 [facility] oL 500 mg 8-11 tablet by ity o f tablet 00:00: mouth (four) Medical times Branch daily as needed for Pain (scale 7-10). methocarbam 2022-0 Yes [id number] 500mg Take 1 [facility] oL 500 mg 8-11 tablet by ity o f tablet 00:00: mouth (four) Medical times Branch daily as needed for Pain (scale 7-10). methocarbam 2-0 Yes [id number] 500mg Take 1 [facility] oL 500 mg 8-11 tablet by ity o f tablet 00:00: mouth (four) Medical times Branch daily as needed for Pain (scale 7-10). methocarbam 2-0 Yes [id number] 500mg Take 1 [facility] oL 500 mg 8-11 tablet by ity o f tablet 00:00: mouth (four) Medical times Branch daily as needed for Pain (scale 7-10). methocarbam 2-0 Yes [id number] 500mg Take 1 [facility] oL 500 mg 8-11 tablet by ity o f tablet 00:00: mouth (four) Medical times Branch daily as needed for Pain (scale 7-10). methocarbam 2-0 Yes [id number] 500mg Take 1 [facility] oL 500 mg 8-11 tablet by ity o f tablet 00:00: mouth (four) Medical times Branch daily as needed for Pain (scale 7-10). methocarbam 2-0 Yes [id number] 500mg Take 1 [facility] oL 500 mg 8-11 tablet by ity o f tablet 00:00: mouth (four) Medical times Branch daily as needed for Pain (scale 7-10). methocarbam 2022-0 Yes [id number] 500mg Take 1 [facility] oL 500 mg 8-11 tablet by ity o f tablet 00:00: mouth (four) Medical times Branch daily as needed for Pain (scale 7-10). methocarbam 2022-0 Yes [id number] 500mg Take 1 [facility] oL 500 mg 8-11 tablet by ity o f tablet 00:00: mouth (four) Medical times Branch daily as needed for Pain (scale 7-10). LOSARTAN 50 2021-0 Yes [id number] Take 1 [facility] mg tablet 7-20 tablet by ity o f 00:00: mouth twice Medical daily Branch DILTIAZEM 2021-0 Yes [id number] Take 1 [facility] [place] 120 mg 24 7-20 capsule by [facility]y of hr capsule 00:00: mouth twice Medical daily Branch LOSARTAN 50 2021-0 Yes [id number] Take 1 [facility] mg tablet 7-20 tablet by ity o f 00:00: mouth twice Medical daily Branch DILTIAZEM 2021-0 Yes [id number] Take 1 [facility] [place] 120 mg 24 7-20 capsule by ity of hr capsule 00:00: mouth twice Medical daily Branch LOSARTAN 50 2021-0 Yes [id number] Take 1 [facility] mg tablet 7-20 tablet by ity o f 00:00: mouth twice Medical daily Branch DILTIAZEM 2021-0 Yes [id number] Take 1 [facility] [place] 120 mg 24 7-20 capsule by [facility]y of hr capsule 00:00: mouth twice Medical daily Branch LOSARTAN 50 2021-0 Yes [id number] Take 1 [facility] mg tablet 7-20 tablet by ity o f 00:00: mouth twice Medical daily Branch DILTIAZEM 2021-0 Yes [id number] Take 1 [facility] [place] 120 mg 24 7-20 capsule by [facility] of hr capsule 00:00: mouth twice Medical daily Branch LOSARTAN 50 2021-0 Yes [id number] Take 1 [facility] mg tablet 7-20 tablet by ity o f 00:00: mouth twice Medical daily Branch DILTIAZEM 2021-0 Yes [id number] Take 1 [facility] [place] 120 mg 24 7-20 capsule by [facility] of hr capsule 00:00: mouth twice Medical daily Branch LOSARTAN 50 2021-0 Yes [id number] Take 1 [facility] mg tablet 7-20 tablet by ity o f 00:00: mouth twice Medical daily Branch DILTIAZEM 2021-0 Yes [id number] Take 1 [facility] [place] 120 mg 24 7-20 capsule by [facility]y of hr capsule 00:00: mouth twice Medical daily Branch LOSARTAN 50 2021-0 Yes [id number] Take 1 [facility] mg tablet 7-20 tablet by ity o f 00:00: mouth twice Medical daily Branch DILTIAZEM 2021-0 Yes [id number] Take 1 [facility] [place] 120 mg 24 7-20 capsule by [facility]y of hr capsule 00:00: mouth twice Medical daily Branch LOSARTAN 50 2021-0 Yes [id number] Take 1 [facility] mg tablet 7-20 tablet by ity o f 00:00: mouth twice Medical daily Branch DILTIAZEM 2021-0 Yes [id number] Take 1 [facility] [place] 120 mg 24 7-20 capsule by [facility]y of hr capsule 00:00: mouth twice Medical daily Branch LOSARTAN 50 2021-0 Yes [id number] Take 1 [facility] mg tablet 7-20 tablet by ity o f 00:00: mouth twice Medical daily Branch DILTIAZEM 2021-0 Yes [id number] Take 1 [facility] [place] 120 mg 24 7-20 capsule by [facility]y of hr capsule 00:00: mouth twice Medical daily Branch LOSARTAN 50 2021-0 Yes [id number] Take 1 [facility] mg tablet 7-20 tablet by ity o f 00:00: mouth twice Medical daily Branch DILTIAZEM 2021-0 Yes [id number] Take 1 [facility] [place] 120 mg 24 7-20 capsule by [facility]y of hr capsule 00:00: mouth twice Medical daily Branch LOSARTAN 50 2021-0 Yes [id number] Take 1 [facility] mg tablet 7-20 tablet by ity o f 00:00: mouth twice Medical daily Branch DILTIAZEM 2021-0 Yes [id number] Take 1 [facility] [place] 120 mg 24 7-20 capsule by [facility] of hr capsule 00:00: mouth twice Medical daily Branch LOSARTAN 50 2021-0 Yes [id number] Take 1 [facility] mg tablet 7-20 tablet by ity o f 00:00: mouth twice Medical daily Branch DILTIAZEM 2021-0 Yes [id number] Take 1 [facility] [place] 120 mg 24 7-20 capsule by [facility]y of hr capsule 00:00: mouth twice Medical daily Branch LOSARTAN 50 2021-0 Yes [id number] Take 1 [facility] mg tablet 7-20 tablet by ity o f 00:00: mouth twice Medical daily Branch DILTIAZEM 2022-0 Yes [id number] Take 1 [facility] [place] 120 mg 24 7-20 capsule by [facility]y of hr capsule 00:00: mouth twice Medical daily Branch LOSARTAN 50 2021-0 Yes [id number] Take 1 [facility] mg tablet 7-20 tablet by ity o f 00:00: mouth twice Medical daily Branch DILTIAZEM 2021-0 Yes [id number] Take 1 [facility] [place] 120 mg 24 7-20 capsule by [facility]y of hr capsule 00:00: mouth twice Medical daily Branch LOSARTAN 50 2021-0 Yes [id number] Take 1 [facility] mg tablet 7-20 tablet by ity o f 00:00: mouth twice Medical daily Branch DILTIAZEM 2021-0 Yes [id number] Take 1 [facility] [place] 120 mg 24 7-20 capsule by [facility]y of hr capsule 00:00: mouth twice Medical daily Branch LOSARTAN 50 2021-0 Yes [id number] Take 1 [facility] mg tablet 7-20 tablet by ity o f 00:00: mouth twice Medical daily Branch DILTIAZEM 2021-0 Yes [id number] Take 1 [facility] [place] 120 mg 24 7-20 capsule by ity of hr capsule 00:00: mouth twice Medical daily Branch LOSARTAN 50 2021-0 Yes [id number] Take 1 [facility] mg tablet 7-20 tablet by ity o f 00:00: mouth twice Medical daily Branch DILTIAZEM 2021-0 Yes [id number] Take 1 [facility] [place] 120 mg 24 7-20 capsule by ity of hr capsule 00:00: mouth twice Medical daily Branch LOSARTAN 50 2021-0 Yes [id number] Take 1 [facility] mg tablet 7-20 tablet by ity o f 00:00: mouth twice Medical daily Branch DILTIAZEM 2021-0 Yes [id number] Take 1 [facility] [place] 120 mg 24 7-20 capsule by [facility]y of hr capsule 00:00: mouth twice Medical daily Branch LOSARTAN 50 2021-0 Yes [id number] Take 1 [facility] mg tablet 7-20 tablet by ity o f 00:00: mouth twice Medical daily Branch DILTIAZEM 2021-0 Yes [id number] Take 1 [facility] [place] 120 mg 24 7-20 capsule by [facility]y of hr capsule 00:00: mouth twice Medical daily Branch LOSARTAN 50 2021-0 Yes [id number] Take 1 [facility] mg tablet 7-20 tablet by ity o f 00:00: mouth twice Medical daily Branch DILTIAZEM 2-0 Yes [id number] Take 1 [facility] [place] 120 mg 24 7-20 capsule by [facility]y of hr capsule 00:00: mouth twice Medical daily Branch LOSARTAN 50 2021-0 Yes [id number] Take 1 [facility] mg tablet 7-20 tablet by ity o f 00:00: mouth twice Medical daily Branch DILTIAZEM 2021-0 Yes [id number] Take 1 [facility] [place] 120 mg 24 7-20 capsule by [facility]y of hr capsule 00:00: mouth twice Medical daily Branch LOSARTAN 50 2021-0 Yes [id number] Take 1 [facility] mg tablet 7-20 tablet by ity o f 00:00: mouth twice Medical daily Branch DILTIAZEM 2021-0 Yes [id number] Take 1 [facility] [place] 120 mg 24 7-20 capsule by [facility]y of hr capsule 00:00: mouth twice Medical daily Branch LOSARTAN 50 2021-0 Yes [id number] Take 1 [facility] mg tablet 7-20 tablet by ity o f 00:00: mouth twice Medical daily Branch DILTIAZEM 2021-0 Yes [id number] Take 1 [facility] [place] 120 mg 24 7-20 capsule by [facility]y of hr capsule 00:00: mouth twice Medical daily Branch LOSARTAN 50 2021-0 Yes [id number] Take 1 [facility] mg tablet 7-20 tablet by ity o f 00:00: mouth twice Medical daily Branch DILTIAZEM 2021-0 Yes [id number] Take 1 [facility] [place] 120 mg 24 7-20 capsule by [facility]y of hr capsule 00:00: mouth twice Medical daily Branch LOSARTAN 50 2-0 Yes [id number] Take 1 [facility] mg tablet 7-20 tablet by ity o f 00:00: mouth twice Medical daily Branch DILTIAZEM 2-0 Yes [id number] Take 1 [facility] [place] 120 mg 24 7-20 capsule by [facility]y of hr capsule 00:00: mouth twice Medical daily Branch LOSARTAN 50 2021-0 Yes [id number] Take 1 [facility] mg tablet 7-20 tablet by ity o f 00:00: mouth twice Medical daily Branch DILTIAZEM 2021-0 Yes [id number] Take 1 [facility] [place] 120 mg 24 7-20 capsule by [facility] of hr capsule 00:00: mouth twice Medical daily Branch LOSARTAN 50 2021-0 Yes [id number] Take 1 [facility] mg tablet 7-20 tablet by ity o f 00:00: mouth twice Medical daily Branch DILTIAZEM 2021-0 Yes [id number] Take 1 [facility] [place] 120 mg 24 7-20 capsule by [facility] of hr capsule 00:00: mouth twice Medical daily Branch LOSARTAN 50 2021-0 Yes [id number] Take 1 [facility] mg tablet 7-20 tablet by ity o f 00:00: mouth twice Medical daily Branch DILTIAZEM 2021-0 Yes [id number] Take 1 [facility] [place] 120 mg 24 7-20 capsule by [facility] of hr capsule 00:00: mouth twice Medical daily Branch LOSARTAN 50 2021-0 Yes [id number] Take 1 [facility] mg tablet 7-20 tablet by ity o f 00:00: mouth twice Medical daily Branch DILTIAZEM 2021-0 Yes [id number] Take 1 [facility] [place] 120 mg 24 7-20 capsule by [facility]y of hr capsule 00:00: mouth twice Medical daily Branch LOSARTAN 50 2021-0 Yes [id number] Take 1 [facility] mg tablet 7-20 tablet by ity o f 00:00: mouth twice Medical daily Branch DILTIAZEM 2021-0 Yes [id number] Take 1 [facility] [place] 120 mg 24 7-20 capsule by [facility]y of hr capsule 00:00: mouth twice Medical daily Branch LOSARTAN 50 2021-0 Yes [id number] Take 1 [facility] mg tablet 7-20 tablet by ity o f 00:00: mouth twice Medical daily Branch DILTIAZEM 2021-0 Yes [id number] Take 1 [facility] [place] 120 mg 24 7-20 capsule by [facility]y of hr capsule 00:00: mouth twice Medical daily Branch LOSARTAN 50 2021-0 Yes [id number] Take 1 [facility] mg tablet 7-20 tablet by ity o f 00:00: mouth twice Medical daily Branch DILTIAZEM 2021-0 Yes [id number] Take 1 [facility] [place] 120 mg 24 7-20 capsule by ity of hr capsule 00:00: mouth twice Medical daily Branch LOSARTAN 50 2021-0 2022- No [id number] Take 1 [facility] mg tablet 7-20 10-13 tablet by ity of 00:00: 00:00 mouth [place] 00 :00 twice Medical daily Branch DILTIAZEM 2021-0 2021- No [id number] Take 1 [facility] 120 mg 24 7-20 10-13 capsule by [facility]y of hr capsule 00:00: 00:00 mouth [place] 00 :00 twice Medical daily Branch methocarbam 2021-0 Yes [id number] 500mg Take 1 [facility] oL 500 mg 7-02 tablet by ity o f tablet 00:00: mouth [place] 00 (four) Medical times Branch daily. methocarbam 2021-0 Yes [id number] 500mg Take 1 [facility] oL 500 mg 7-02 tablet by ity o f tablet 00:00: mouth [place] 00 (four) Medical times Branch daily. methocarbam 2021-0 Yes [id number] 500mg Take 1 [facility] oL 500 mg 7-02 tablet by ity o f tablet 00:00: mouth [place] (four) Medical times Branch daily. methocarbam 2021-0 Yes [id number] 500mg Take 1 [facility] oL 500 mg 7-02 tablet by ity o f tablet 00:00: mouth [address] [place] [address] (four) Medical times Branch daily. methocarbam 2021-0 Yes [id number] 500mg Take 1 [facility] oL 500 mg 7-02 tablet by ity o f tablet 00:00: [address] (four) Medical times Branch daily. methocarbam 2021-0 2021- No [id number] 500mg Take 1 [facility] oL 500 mg 7-02 08-11 tablet by ity of tablet 00:00: 00:[address] [place] [address] 00 :00 (four) Medical times Branch daily. SUMATRIPTAN 2021-0 Yes [id number] TAKE 1 [facility] 50 mg 6-17 TABLET BY ity of tablet 00:00: MOUTH [place] 00 NEEDED FOR Medical MIGRAINE Branch HEADACHE (MAY REPEAT IN TWO HOURS) SUMATRIPTAN 2021-0 Yes [id number] TAKE 1 [facility] 50 mg 6-17 TABLET BY ity of tablet 00:00: MOUTH [place] 00 NEEDED FOR Medical MIGRAINE Branch HEADACHE (MAY REPEAT IN TWO HOURS) SUMATRIPTAN 2021-0 Yes [id number] TAKE 1 [facility] 50 mg 6-17 TABLET BY ity of tablet 00:00: MOUTH [place] 00 NEEDED FOR Medical MIGRAINE Branch HEADACHE (MAY REPEAT IN TWO HOURS) SUMATRIPTAN 2021-0 Yes [id number] TAKE 1 [facility] 50 mg 6-17 TABLET BY [facility] of tablet 00:00: MOUTH [place] 00 NEEDED FOR Medical MIGRAINE Branch HEADACHE (MAY REPEAT IN TWO HOURS) SUMATRIPTAN 2022-0 Yes [id number] TAKE 1 [facility] 50 mg 6-17 TABLET BY [facility] of tablet 00:00: MOUTH [place] 00 NEEDED FOR Medical MIGRAINE Branch HEADACHE (MAY REPEAT IN TWO HOURS) SUMATRIPTAN 2022-0 Yes [id number] TAKE 1 [facility] 50 mg 6-17 TABLET BY [facility] of tablet 00:00: MOUTH [place] 00 NEEDED FOR Medical MIGRAINE Branch HEADACHE (MAY REPEAT IN TWO HOURS) SUMATRIPTAN 2022-0 Yes [id number] TAKE 1 [facility] 50 mg 6-17 TABLET BY [facility] of tablet 00:00: MOUTH [place] 00 NEEDED FOR Medical MIGRAINE Branch HEADACHE (MAY REPEAT IN TWO HOURS) SUMATRIPTAN 2022-0 Yes [id number] TAKE 1 [facility] 50 mg 6-17 TABLET BY [facility]y of tablet 00:00: MOUTH [place] 00 NEEDED FOR Medical MIGRAINE Branch HEADACHE (MAY REPEAT IN TWO HOURS) SUMATRIPTAN 2022-0 Yes [id number] TAKE 1 [facility] 50 mg 6-17 TABLET BY it[facility] of tablet 00:00: MOUTH [place] 00 NEEDED FOR Medical MIGRAINE Branch HEADACHE (MAY REPEAT IN TWO HOURS) SUMATRIPTAN 2-0 Yes [id number] TAKE 1 [facility] 50 mg 6-17 TABLET BY it[facility] of tablet 00:00: MOUTH [place] 00 NEEDED FOR Medical MIGRAINE Branch HEADACHE (MAY REPEAT IN TWO HOURS) SUMATRIPTAN 2022-0 Yes [id number] TAKE 1 [facility] 50 mg 6-17 TABLET BY ity of tablet 00:00: MOUTH [place] 00 NEEDED FOR Medical MIGRAINE Branch HEADACHE (MAY REPEAT IN TWO HOURS) SUMATRIPTAN 2022-0 Yes [id number] TAKE 1 [facility] 50 mg 6-17 TABLET BY ity of tablet 00:00: MOUTH [place] 00 NEEDED FOR Medical MIGRAINE Branch HEADACHE (MAY REPEAT IN TWO HOURS) SUMATRIPTAN 2022-0 Yes [id number] TAKE 1 [facility] 50 mg 6-17 TABLET BY ity of tablet 00:00: MOUTH [place] 00 NEEDED FOR Medical MIGRAINE Branch HEADACHE (MAY REPEAT IN TWO HOURS) SUMATRIPTAN 2022-0 Yes [id number] TAKE 1 [facility] 50 mg 6-17 TABLET BY ity of tablet 00:00: MOUTH [place] 00 NEEDED FOR Medical MIGRAINE Branch HEADACHE (MAY REPEAT IN TWO HOURS) SUMATRIPTAN 2021-0 Yes [id number] TAKE 1 [facility] 50 mg 6-17 TABLET BY it[facility] of tablet 00:00: MOUTH [place] 00 NEEDED FOR Medical MIGRAINE Branch HEADACHE (MAY REPEAT IN TWO HOURS) SUMATRIPTAN 2021-0 Yes [id number] TAKE 1 [facility] 50 mg 6-17 TABLET BY [facility] of tablet 00:00: MOUTH [place] 00 NEEDED FOR Medical MIGRAINE Branch HEADACHE (MAY REPEAT IN TWO HOURS) SUMATRIPTAN 2021-0 Yes [id number] TAKE 1 [facility] 50 mg 6-17 TABLET BY ity of tablet 00:00: MOUTH [place] 00 NEEDED FOR Medical MIGRAINE Branch HEADACHE (MAY REPEAT IN TWO HOURS) SUMATRIPTAN 2021-0 2021- No [id number] TAKE 1 [facility] 50 mg 6-17 09-06 TABLET BY ity of tablet 00:00: 00:00 MOUTH [place] 00 :00 NEEDED FOR Medical MIGRAINE Branch HEADACHE (MAY REPEAT IN TWO HOURS) SUMATRIPTAN 2021-0 2- No [id number] TAKE 1 [facility] 50 mg 6-17 09-06 TABLET BY ity of tablet 00:00: 00:00 MOUTH [place] 00 :00 NEEDED FOR Medical MIGRAINE Branch HEADACHE (MAY REPEAT IN TWO HOURS) fexofenadin 2021-0 Yes [id number] 180mg Take 1 [facility] e (LUIS 6-13 tablet by ity of ALLERGY) 00:00: mouth [place] 180 mg 00 daily. Medical tablet Branch fexofenadin 2021-0 Yes [id number] 180mg Take 1 [facility] e (LUIS 6-13 tablet by ity of ALLERGY) 00:00: mouth [place] 180 mg 00 daily. Medical tablet Branch fexofenadin 2021-0 Yes [id number] 180mg Take 1 [facility] e (LUIS 6-13 tablet by ity of ALLERGY) 00:00: mouth [place] 180 mg 00 daily. Medical tablet Branch fexofenadin 2021-0 Yes [id number] 180mg Take 1 [facility] e (LUIS 6-13 tablet by ity of ALLERGY) 00:00: mouth [place] 180 mg 00 daily. Medical tablet Branch fexofenadin 2021-0 Yes [id number] 180mg Take 1 [facility] e (LUIS 6-13 tablet by ity of ALLERGY) 00:00: mouth [place] 180 mg 00 daily. Medical tablet Branch fexofenadin 0 Yes [id number] 180mg Take 1 [facility] e (LUIS 6-13 tablet by ity of ALLERGY) 00:00: mouth [place] 180 mg 00 daily. Medical tablet Branch fexofenadin 0 Yes [id number] 180mg Take 1 [facility] e (LUIS 6-13 tablet by ity of ALLERGY) 00:00: mouth [place] 180 mg 00 daily. Medical tablet Branch fexofenadin 0 Yes [id number] 180mg Take 1 [facility] e (LUIS 6-13 tablet by ity of ALLERGY) 00:00: mouth [place] 180 mg 00 daily. Medical tablet Branch fexofenadin Yes [id number] 180mg Take 1 [facility] e (LUIS 6-13 tablet by ity of ALLERGY) 00:00: mouth [place] 180 mg 00 daily. Medical tablet Branch fexofenadin Yes [id number] 180mg Take 1 [facility] e (LUIS 6-13 tablet by ity of ALLERGY) 00:00: mouth [place] 180 mg 00 daily. Medical tablet Branch fexofenadin Yes [id number] 180mg Take 1 [facility] e (LUIS 6-13 tablet by ity of ALLERGY) 00:00: mouth [place] 180 mg 00 daily. Medical tablet Branch fexofenadin Yes [id number] 180mg Take 1 [facility] e (LUIS 6-13 tablet by ity of ALLERGY) 00:00: mouth [place] 180 mg 00 daily. Medical tablet Branch fexofenadin 0 Yes [id number] 180mg Take 1 [facility] e (LUIS 6-13 tablet by ity of ALLERGY) 00:00: mouth [place] 180 mg 00 daily. Medical tablet Branch fexofenadin 0 Yes [id number] 180mg Take 1 [facility] e (LUIS 6-13 tablet by ity of ALLERGY) 00:00: mouth [place] 180 mg 00 daily. Medical tablet Branch fexofenadin 0 Yes [id number] 180mg Take 1 [facility] e (LUIS 6-13 tablet by ity of ALLERGY) 00:00: mouth [place] 180 mg 00 daily. Medical tablet Branch fexofenadin 0 Yes [id number] 180mg Take 1 [facility] e (LUIS 6-13 tablet by ity of ALLERGY) 00:00: mouth [place] 180 mg 00 daily. Medical tablet Branch fexofenadin Yes [id number] 180mg Take 1 [facility] e (LUIS 6-13 tablet by ity of ALLERGY) 00:00: mouth [place] 180 mg 00 daily. Medical tablet Branch fexofenadin Yes [id number] 180mg Take 1 [facility] e (LUIS 6-13 tablet by ity of ALLERGY) 00:00: mouth [place] 180 mg 00 daily. Medical tablet Branch fexofenadin Yes [id number] 180mg Take 1 [facility] e (LUIS 6-13 tablet by ity of ALLERGY) 00:00: mouth [place] 180 mg 00 daily. Medical tablet Branch fexofenadin Yes [id number] 180mg Take 1 [facility] e (LUIS 6-13 tablet by ity of ALLERGY) 00:00: mouth [place] 180 mg 00 daily. Medical tablet Branch fexofenadin Yes [id number] 180mg Take 1 [facility] e (LUIS 6-13 tablet by ity of ALLERGY) 00:00: mouth [place] 180 mg 00 daily. Medical tablet Branch fexofenadin Yes [id number] 180mg Take 1 [facility] e (LUIS 6-13 tablet by ity of ALLERGY) 00:00: mouth [place] 180 mg 00 daily. Medical tablet Branch fexofenadin Yes [id number] 180mg Take 1 [facility] e (LUIS 6-13 tablet by ity of ALLERGY) 00:00: mouth [place] 180 mg 00 daily. Medical tablet Branch fexofenadin Yes [id number] 180mg Take 1 [facility] e (LUIS 6-13 tablet by ity of ALLERGY) 00:00: mouth [place] 180 mg 00 daily. Medical tablet Branch fexofenadin Yes [id number] 180mg Take 1 [facility] e (LUIS 6-13 tablet by ity of ALLERGY) 00:00: mouth [place] 180 mg 00 daily. Medical tablet Branch fexofenadin Yes [id number] 180mg Take 1 [facility] e (LUIS 6-13 tablet by ity of ALLERGY) 00:00: mouth [place] 180 mg 00 daily. Medical tablet Branch fexofenadin Yes [id number] 180mg Take 1 [facility] e (LUIS 6-13 tablet by ity of ALLERGY) 00:00: mouth [place] 180 mg 00 daily. Medical tablet Branch fexofenadin Yes [id number] 180mg Take 1 [facility] e (LUIS 6-13 tablet by ity of ALLERGY) 00:00: mouth [place] 180 mg 00 daily. Medical tablet Branch fexofenadin Yes [id number] 180mg Take 1 [facility] e (LUIS 6-13 tablet by ity of ALLERGY) 00:00: mouth [place] 180 mg 00 daily. Medical tablet Branch fexofenadin Yes [id number] 180mg Take 1 [facility] e (LUIS 6-13 tablet by ity of ALLERGY) 00:00: mouth [place] 180 mg 00 daily. Medical tablet Branch fexofenadin Yes [id number] 180mg Take 1 [facility] e (LUIS 6-13 tablet by ity of ALLERGY) 00:00: mouth [place] 180 mg 00 daily. Medical tablet Branch fexofenadin Yes [id number] 180mg Take 1 [facility] e (LUIS 6-13 tablet by ity of ALLERGY) 00:00: mouth [place] 180 mg 00 daily. Medical tablet Branch fexofenadin Yes [id number] 180mg Take 1 [facility] e (LUIS 6-13 tablet by ity of ALLERGY) 00:00: mouth [place] 180 mg 00 daily. Medical tablet Branch fexofenadin Yes [id number] 180mg Take 1 [facility] e (LUIS 6-13 tablet by ity of ALLERGY) 00:00: mouth [place] 180 mg 00 daily. Medical tablet Branch fexofenadin Yes [id number] 180mg Take 1 [facility] e (LUIS 6-13 tablet by ity of ALLERGY) 00:00: mouth [place] 180 mg 00 daily. Medical tablet Branch fexofenadin Yes [id number] 180mg Take 1 [facility] e (LUIS 6-13 tablet by ity of ALLERGY) 00:00: mouth [place] 180 mg 00 daily. Medical tablet Branch fexofenadin Yes [id number] 180mg Take 1 [facility] e (LUIS 6-13 tablet by ity of ALLERGY) 00:00: mouth [place] 180 mg 00 daily. Medical tablet Branch fexofenadin 2022-0 Yes [id number] 180mg Take 1 [facility] e (LUIS 6-13 tablet by ity of ALLERGY) 00:00: mouth [place] 180 mg 00 daily. Medical tablet Branch fexofenadin 0 Yes [id number] 180mg Take 1 [facility] e (LUIS 6-13 tablet by ity of ALLERGY) 00:00: mouth [place] 180 mg 00 daily. Medical tablet Branch fexofenadin 0 Yes [id number] 180mg Take 1 [facility] e (LUIS 6-13 tablet by ity of ALLERGY) 00:00: mouth [place] 180 mg 00 daily. Medical tablet Branch fexofenadin Yes [id number] 180mg Take 1 [facility] e (LUIS 6-13 tablet by ity of ALLERGY) 00:00: mouth [place] 180 mg 00 daily. Medical tablet Branch fexofenadin Yes [id number] 180mg Take 1 [facility] e (LUIS 6-13 tablet by ity of ALLERGY) 00:00: mouth [place] 180 mg 00 daily. Medical tablet Branch fexofenadin Yes [id number] 180mg Take 1 [facility] e (LUIS 6-13 tablet by ity of ALLERGY) 00:00: mouth [place] 180 mg 00 daily. Medical tablet Branch fexofenadin Yes [id number] 180mg Take 1 [facility] e (LUIS 6-13 tablet by ity of ALLERGY) 00:00: mouth [place] 180 mg 00 daily. Medical tablet Branch fexofenadin Yes [id number] 180mg Take 1 [facility] e (LUIS 6-13 tablet by ity of ALLERGY) 00:00: mouth [place] 180 mg 00 daily. Medical tablet Branch fexofenadin 0 Yes [id number] 180mg Take 1 [facility] e (LUIS 6-13 tablet by ity of ALLERGY) 00:00: mouth [place] 180 mg 00 daily. Medical tablet Branch fexofenadin 2021-0 Yes [id number] 180mg Take 1 [facility] e (LUIS 6-13 tablet by ity of ALLERGY) 00:00: mouth [place] 180 mg 00 daily. Medical tablet Branch fexofenadin Yes [id number] 180mg Take 1 [facility] e (LUIS 6-13 tablet by ity of ALLERGY) 00:00: mouth [place] 180 mg 00 daily. Medical tablet Branch fexofenadin Yes [id number] 180mg Take 1 [facility] e (LUIS 6-13 tablet by ity of ALLERGY) 00:00: mouth [place] 180 mg 00 daily. Medical tablet Branch fexofenadin Yes [id number] 180mg Take 1 [facility] e (LUIS 6-13 tablet by ity of ALLERGY) 00:00: mouth [place] 180 mg 00 daily. Medical tablet Branch rosuvastati Yes [id number] 10mg Take 1 [facility] n 10 mg 6-08 tablet by ity of tablet 00:00: mouth at [place] 00 bedtime. Medical Branch rosuvastati Yes [id number] 10mg Take 1 [facility] n 10 mg 6-08 tablet by ity of tablet 00:00: mouth at [place] 00 bedtime. Medical Branch rosuvastati Yes [id number] 10mg Take 1 [facility] n 10 mg 6-08 tablet by ity of tablet 00:00: mouth at [place] bedtime. Medical Branch rosuvastati Yes [id number] 10mg Take 1 [facility] n 10 mg 6-08 tablet by ity of tablet 00:00: mouth at [place] 00 bedtime. Medical Branch rosuvastati Yes [id number] 10mg Take 1 [facility] n 10 mg 6-08 tablet by ity of tablet 00:00: mouth at [place] bedtime. Medical Branch rosuvastati Yes [id number] 10mg Take 1 [facility] n 10 mg 6-08 tablet by ity of tablet 00:00: mouth at [place] bedtime. Medical Branch rosuvastati 2021- Yes [id number] 10mg Take 1 [facility] n 10 mg 6-08 tablet by ity of tablet 00:00: mouth at [place] 00 bedtime. Medical Branch rosuvastati Yes [id number] 10mg Take 1 [facility] n 10 mg 6-08 tablet by ity of tablet 00:00: mouth at [place] 00 bedtime. Medical Branch rosuvastati Yes [id number] 10mg Take 1 [facility] n 10 mg 6-08 tablet by ity of tablet 00:00: mouth at [place] 00 bedtime. Medical Branch rosuvastati Yes [id number] 10mg Take 1 [facility] n 10 mg 6-08 tablet by ity of tablet 00:00: mouth at [place] 00 bedtime. Medical Branch rosuvastati 2021- Yes [id number] 10mg Take 1 [facility] n 10 mg 6-08 tablet by ity of tablet 00:00: mouth at [place] 00 bedtime. Medical Branch rosuvastati 2021-0 Yes [id number] 10mg Take 1 [facility] n 10 mg 6-08 tablet by ity of tablet 00:00: mouth at [place] [address] bedtime. Medical Branch rosuvastati 2021-0 Yes [id number] 10mg Take 1 [facility] n 10 mg 6-08 tablet by ity of tablet 00:00: mouth at [place] [address] bedtime. Medical Branch rosuvastati 2021-0 Yes [id number] 10mg Take 1 [facility] n 10 mg 6-08 tablet by ity of tablet 00:00: mouth at [place] [address] bedtime. Medical Branch rosuvastati 2021- Yes [id number] 10mg Take 1 [facility] n 10 mg 6-08 tablet by ity of tablet 00:00: mouth at [place] [address] bedtime. Medical Branch rosuvastati 2021-0 Yes [id number] 10mg Take 1 [facility] n 10 mg 6-08 tablet by ity of tablet 00:00: mouth at [place] [address] bedtime. Medical Branch rosuvastati 2021- Yes [id number] 10mg Take 1 [facility] n 10 mg 6-08 tablet by ity of tablet 00:00: mouth at [place] [address] bedtime. Medical Branch rosuvastati Yes [id number] 10mg Take 1 [facility] n 10 mg 6-08 tablet by ity of tablet 00:00: mouth at [place] [address] bedtime. Medical Branch rosuvastati 2021-0 Yes [id number] 10mg Take 1 [facility] n 10 mg 6-08 tablet by ity of tablet 00:00: mouth at [place] [address] bedtime. Medical Branch rosuvastati 2021-0 Yes [id number] 10mg Take 1 [facility] n 10 mg 6-08 tablet by ity of tablet 00:00: mouth at [place] [address] bedtime. Medical Branch rosuvastati 2021-0 Yes [id number] 10mg Take 1 [facility] n 10 mg 6-08 tablet by ity of tablet 00:00: mouth at [place] [address] bedtime. Medical Branch rosuvastati 2021-0 Yes [id number] 10mg Take 1 [facility] n 10 mg 6-08 tablet by ity of tablet 00:00: mouth at [place] [address] bedtime. Medical Branch rosuvastati 2021-0 Yes [id number] 10mg Take 1 [facility] n 10 mg 6-08 tablet by ity of tablet 00:00: mouth at [place] bedtime. Medical Branch rosuvastati 2021-0 Yes [id number] 10mg Take 1 [facility] n 10 mg 6-08 tablet by ity of tablet 00:00: mouth at [place] bedtime. Medical Branch rosuvastati 2021-0 Yes [id number] 10mg Take 1 [facility] n 10 mg 6-08 tablet by ity of tablet 00:00: mouth at [place] bedtime. Medical Branch rosuvastati 2021-0 Yes [id number] 10mg Take 1 [facility] n 10 mg 6-08 tablet by ity of tablet 00:00: mouth at [place] bedtime. Medical Branch rosuvastati 2021-0 Yes [id number] 10mg Take 1 [facility] n 10 mg 6-08 tablet by ity of tablet 00:00: mouth at [place] bedtime. Medical Branch rosuvastati 2021-0 Yes [id number] 10mg Take 1 [facility] n 10 mg 6-08 tablet by ity of tablet 00:00: mouth at [place] bedtime. Medical Branch rosuvastati 2021-0 Yes [id number] 10mg Take 1 [facility] n 10 mg 6-08 tablet by ity of tablet 00:00: mouth at [place] [address] bedtime. Medical Branch rosuvastati Yes [id number] 10mg Take 1 [facility] n 10 mg 6-08 tablet by ity of tablet 00:00: mouth at [place] [address] bedtime. Medical Branch rosuvastati 2021-0 Yes [id number] 10mg Take 1 [facility] n 10 mg 6-08 tablet by ity of tablet 00:00: mouth at [place] [address] bedtime. Medical Branch rosuvastati 2021-0 Yes [id number] 10mg Take 1 [facility] n 10 mg 6-08 tablet by ity of tablet 00:00: mouth at [place] [address] bedtime. Medical Branch rosuvastati 2021-0 Yes [id number] 10mg Take 1 [facility] n 10 mg 6-08 tablet by ity of tablet 00:00: mouth at [place] [address] bedtime. Medical Branch rosuvastati 2021-0 Yes [id number] 10mg Take 1 [facility] n 10 mg 6-08 tablet by ity of tablet 00:00: mouth at [place] [address] bedtime. Medical Branch rosuvastati Yes [id number] 10mg Take 1 [facility] n 10 mg 6-08 tablet by ity of tablet 00:00: mouth at [place] bedtime. Medical Branch rosuvastati Yes [id number] 10mg Take 1 [facility] n 10 mg 6-08 tablet by ity of tablet 00:00: mouth at [place] [address] bedtime. Medical Branch rosuvastati 0 Yes [id number] 10mg Take 1 [facility] n 10 mg 6-08 tablet by ity of tablet 00:00: mouth at [place] bedtime. Medical Branch rosuvastati Yes [id number] 10mg Take 1 [facility] n 10 mg 6-08 tablet by ity of tablet 00:00: mouth at [place] bedtime. Medical Branch rosuvastati Yes [id number] 10mg Take 1 [facility] n 10 mg 6-08 tablet by ity of tablet 00:00: mouth at [place] [address] bedtime. Medical Branch rosuvastati Yes [id number] 10mg Take 1 [facility] n 10 mg 6-08 tablet by ity of tablet 00:00: mouth at [place] [address] bedtime. Medical Branch rosuvastati 0 Yes [id number] 10mg Take 1 [facility] n 10 mg 6-08 tablet by ity of tablet 00:00: mouth at [place] [address] bedtime. Medical Branch rosuvastati Yes [id number] 10mg Take 1 [facility] n 10 mg 6-08 tablet by ity of tablet 00:00: mouth at [place] [address] bedtime. Medical Branch rosuvastati 0 Yes [id number] 10mg Take 1 [facility] n 10 mg 6-08 tablet by ity of tablet 00:00: mouth at [place] [address] bedtime. Medical Branch rosuvastati 0 Yes [id number] 10mg Take 1 [facility] n 10 mg 6-08 tablet by ity of tablet 00:00: mouth at [place] [address] bedtime. Medical Branch rosuvastati 0 Yes [id number] 10mg Take 1 [facility] n 10 mg 6-08 tablet by ity of tablet 00:00: mouth at [place] [address] bedtime. Medical Branch rosuvastati 2021-0 2- No [id number] 10mg Take 1 [facility] n 10 mg 6-08 10-13 tablet by ity of tablet 00:00: 00:00 mouth at [place] 00 :00 bedtime. Medical Branch water for 2021- No PRN, Univers irrigation 03-02 Starting ity of irrigation 14:20: 15:50 on Tue [place] solution 00 :27 03/02/22 at Medica l 0920, Branch Until Tue03/02/22 at 1050, Routine, Intra-op simethicone 2021- No PRN, [facility] [place] [facility] rs (GAS RELIEF 03-02 Starting ity of (SIMETHICON 14:20: 15:50 on Tue [place] as E)) 40 00 :27 03/02/22 at Medical mg/0.6 mL 0920, Branch drops Until Tue03/02/22 at 1050, Routine, Intra-op lactated 2021- No 1000mL at 42 [facility] [place] [facility] rs ringers IV 03-02 06-07 mL/hr, ity of infusion 12:45: 12:59 1,000 mL, E[place] as 1,000 mL 00 :00 IV Medical Infusion, Branch ONCE, 1 dose, On Tue03/02/22 at 0745, Routine, DSU Pre-op lactated 2021- No 1000mL at 42 [facility] [place] [facility] rs ringers IV 03-02 06-07 mL/hr, ity of infusion 12:45: 12:59 1,000 mL, [place] as 1,000 mL 00 :00 IV Medical Infusion, Branch ONCE, 1 dose, On Tue03/02/22 at 0745, Routine, DSU Pre-op FOLIC ACID Yes Take by [facility] ORAL 03-02 mouth ity of 11:23: daily. [address] Branch MULTIVIT Yes Take by [facility] s &MINERALS/F 03-02 mouth. ity of ERROUS FUM 11:23: [place] ([place] [address] Medical VITAMIN Branch ORAL) METHYLCELLU Yes [facility] s LOSE (FIBER 03-02 ity of THERAPY 11:23: [place] MIS) [address] [place] [address] DOCUSATE Yes Take by [facility] s SODIUM 03-02 mouth. ity of (COLACE 11:23: [place] ORAL) [address] [place] [address] vitamin C Yes 1000mg Take 1,000 Univers with derrell 6-07 mg by ity of hips 11:23: mouth [place] (VITAMIN C) 09 daily. Medica l 1,000 mg Branch tablet cholecalcif Yes 1000U Take 1,000 Univers edmar, 6-07 Units by ity of vitamin D3, 11:23: mouth [place] (VITAMIN 09 daily. Medical D3) 1,000 Branch unit tablet CRANBERRY Yes Take by [facility] [place] [facility] rs FRUIT 6-07 mouth ity of EXTRACT [...] Uni vers 6-07 mouth. ity of 11:23: [place] Medical Branch FOLIC ACID Yes Take by [facility] ers ORAL 6-07 mouth ity of 11:23: daily. [place] Medical Branch MULTIVIT Yes Take by [facility] s &MINERALS/F 6-07 mouth. ity of ERROUS FUM 11:23: [place] (MULTI 09 Medical VITAMIN Branch ORAL) METHYLCELLU Yes Univer s LOSE (FIBER 6-07 ity of THERAPY 11:23: [place] MISC) 09 Medical Branch DOCUSATE Yes Take by [facility] SODIUM 6-07 mouth. ity of (COLACE [...] Branch unit tablet CRANBERRY Yes Take by [facility] ers FRUIT 6-07 mouth ity of EXTRACT 11:23: daily. [place] ([place] Medical ORAL) Branch CALCIUM 2022-0 Yes Take [...] [place] [facility] Branch MULTIVIT Yes Take by Univer s &MINERALS/F 6-07 mouth. ity of ERROUS FUM 11:23: [place] (MULTI 09 Medical VITAMIN Branch ORAL) METHYLCELLU Yes [facility] s LOSE (FIBER 6-07 ity of THERAPY 11:23: [place] MISC) 09 Medical Branch DOCUSATE Yes Take by [facility] s SODIUM 6-07 mouth. ity [...] Branch unit tablet CRANBERRY Yes Take by [facility] [place] [facility] rs FRUIT 6-07 mouth ity of EXTRACT [...] [place] [facility] Branch MULTIVIT Yes Take by Univer s &MINERALS/F 6-07 mouth. ity of ERROUS FUM 11:23: [place] (MULTI 09 Medical VITAMIN Branch ORAL) METHYLCELLU 0 Yes [facility] LOSE (FIBER 6-07 ity of THERAPY 11:23: [facility]) 09 Medical Branch DOCUSATE Yes Take by [facility] SODIUM 6-07 mouth. ity of (COLACE [...] Branch unit tablet CRANBERRY Yes Take by [facility] [place] [facility] rs FRUIT 6-07 mouth ity of EXTRACT [...] Uni vers 6-07 mouth. ity of 11:23: [place] [address] Medical Branch FOLIC ACID Yes Take by Univ ers ORAL 6-07 mouth ity of 11:23: daily. [place] [address] Medical Branch MULTIVIT Yes Take by [facility] s &MINERALS/F 6-07 mouth. ity of ERROUS FUM 11:23: [place] (MULTI 09 Medical VITAMIN Branch ORAL) METHYLCELLU 0 Yes [facility] LOSE (FIBER 6-07 ity of THERAPY 11:23: [facility]) 09 Medical Branch DOCUSATE 0 Yes Take by [facility] s SODIUM 6-07 mouth. ity [...] unit tablet CRANBERRY 0 Yes Take by [facility] FRUIT 6-07 mouth ity of EXTRACT [...] [place] [facility] Branch MULTIVIT Yes Take by [facility] s &MINERALS/F 6-07 mouth. ity of ERROUS FUM 11:23: [place] (MULTI 09 Medical VITAMIN Branch ORAL) METHYLCELLU Yes [facility] LOSE (FIBER 6-07 ity of THERAPY 11:23: [place] MISC) 09 Medical Branch DOCUSATE Yes Take by [facility] SODIUM 6-07 mouth. ity of (COLACE [...] unit tablet CRANBERRY 2021-0 Yes Take by [facility] rs FRUIT 6-07 mouth ity of EXTRACT 11:23: daily. [place] (CRAN[place]Y 09 Medical ORAL) Branch CALCIUM Yes Take by Univers ORAL 6-07 mouth ity of 11:23: daily. [place] Medical Branch DOCOSAHEXAN 0 Yes 1000mg Take 1,000 Univers OIC 6-07 mg by ity of ACID/EPA 11:23: mouth [place] (FISH OIL 09 daily. Medical ORAL) Branch BIOTIN ORAL Yes Take by Uni vers 6-07 mouth. ity of 11:23: Medical Branch FOLIC ACID Yes Take by Univ ers ORAL 6-07 mouth ity of 11:23: daily. [place] Medical Branch MULTIVIT Yes Take by Univer s &MINERALS/F 6-07 mouth. ity of ERROUS FUM 11:23: [place] (MULTI 09 Medical VITAMIN Branch ORAL) METHYLCELLU Yes [facility] LOSE (FIBER 6-07 ity of THERAPY 11:23: [place] MISC) Medical Branch DOCUSATE Yes Take by [facility] SODIUM 6-07 mouth. ity of (COLACE [...] Uni vers 6-07 mouth. ity of 11:23: [place] Medical Branch FOLIC ACID 0 Yes Take by Univ ers ORAL 6-07 mouth ity of 11:23: daily. [place] [address] Medical Branch MULTIVIT Yes Take by Univer s &MINERALS/F 6-07 mouth. ity of ERROUS FUM 11:23: [place] (MULTI 09 Medical VITAMIN Branch ORAL) METHYLCELLU 2022-0 Yes Univer s LOSE (FIBER 6-07 ity of THERAPY 11:23: [facility]) 09 Medical Branch DOCUSATE Yes Take by [facility] s SODIUM 6-07 mouth. ity [...] Branch unit tablet CRANBERRY Yes Take by [facility] FRUIT 6-07 mouth ity of EXTRACT 11:23: daily. [place] (CRANBERRY 09 Medical ORAL) Branch CALCIUM Yes Take by [facility] ORAL 6-07 mouth ity of 11:23: daily. [place] Medical Branch DOCOSAHEXAN Yes 1000mg Take 1,000 Univers OIC 6-07 mg by ity of ACID/EPA 11:23: mouth [place] (FISH OIL 09 daily. Medical ORAL) Branch BIOTIN ORAL Yes Take by Uni vers 6-07 mouth. ity of 11:23: [place] Medical Branch FOLIC ACID Yes Take by Univ ers ORAL 6-07 mouth ity of 11:23: daily. [place] [facility] Branch MULTIVIT Yes Take by [facility] [place] [facility] rs &MINERALS/F 6-07 mouth. ity of ERROUS FUM 11:23: [place] (MULTI 09 Medical VITAMIN Branch ORAL) METHYLCELLU 0 Yes Univer s LOSE (FIBER 6-07 ity of THERAPY 11:23: [facility]) 09 Medical Branch DOCUSATE Yes Take by [facility] [place] [facility] SODIUM 6-07 mouth. ity of (COLACE 11:23: [...] Uni vers 6-07 mouth. ity of 11:23: [place] Medical Branch FOLIC ACID Yes Take by Univ ers ORAL 6-07 mouth ity of 11:23: daily. [place] [facility] Branch MULTIVIT Yes Take by Univer [...] Branch unit tablet CRANBERRY Yes Take by [facility] rs FRUIT 6-07 mouth ity of EXTRACT [...] [place] [facility] Branch MULTIVIT Yes Take by Univer s &MINERALS/F 6-07 mouth. ity of ERROUS FUM 11:23: [place] (MULTI 09 Medical VITAMIN Branch ORAL) METHYLCELLU 0 Yes Univer s LOSE (FIBER 6-07 ity of THERAPY 11:23: [facility]) 09 Medical Branch DOCUSATE Yes Take [...] of 11:23: daily. [place] Medical Branch MULTIVIT 0 Yes Take by Univer s &MINERALS/F 6-07 mouth. ity of ERROUS FUM 11:23: [place] (MULTI 09 Medical VITAMIN Branch ORAL) METHYLCELLU 0 Yes Univer s LOSE (FIBER 6-07 ity of THERAPY 11:23: [facility]) 09 Medical Branch DOCUSATE 2022-0 Yes Take by [facility] s SODIUM 6-07 mouth. ity [...] Branch unit tablet CRANBERRY Yes Take by [facility] [place] [facility] rs FRUIT 6-07 mouth ity of EXTRACT 11:23: daily. [place] ([place] Medical ORAL) Branch CALCIUM Yes Take by [facility] ORAL 6-07 mouth ity of 11:23: daily. [place] [facility] Branch DOCOSAHEXAN Yes 1000mg Take 1,000 Univers OIC 6-07 mg by ity of ACID/EPA 11:23: mouth [place] (FISH OIL 09 daily. Medical ORAL) Branch BIOTIN ORAL Yes Take by Uni vers 6-07 mouth. ity of 11:23: [place] [address] Medical Branch FOLIC ACID Yes Take by Univ ers ORAL 6-07 mouth ity of 11:23: daily. [place] 09 Medical Branch MULTIVIT Yes Take by [facility] s &MINERALS/F 6-07 mouth. ity of ERROUS FUM 11:23: [place] (MULTI 09 Medical VITAMIN Branch ORAL) METHYLCELLU 0 Yes [facility] s LOSE (FIBER 6-07 ity of THERAPY 11:23: [place] MISC) 09 Medical Branch DOCUSATE Yes Take by [facility] s SODIUM 6-07 mouth. ity [...] Medical D3) 1,000 Branch unit tablet CRANBERRY 2022-0 Yes Take by Unive rs FRUIT 6-07 [...] Uni vers 6-07 mouth. ity of 11:23: [place] [address] Medical Branch FOLIC ACID Yes Take by Univ ers ORAL 6-07 mouth ity of 11:23: daily. [place] Medical Branch MULTIVIT Yes Take by Univer [...] Uni vers 6-07 mouth. ity of 11:23: [place] [address] Medical Branch FOLIC ACID Yes Take by Univ ers ORAL 6-07 mouth ity of 11:23: daily. [place] [address] Medical Branch MULTIVIT Yes Take by Univer s &MINERALS/F 6-07 mouth. ity of ERROUS FUM 11:23: [place] (MULTI 09 Medical VITAMIN Branch ORAL) METHYLCELLU Yes Univer s LOSE (FIBER 6-07 ity of THERAPY 11:23: [facility]) 09 Medical Branch DOCUSATE Yes Take [...] Branch unit tablet CRANBERRY Yes Take by [facility] FRUIT 6-07 mouth ity of EXTRACT 11:23: daily. [place] (CRANBERRY 09 Medical ORAL) Branch CALCIUM Yes Take by [facility] ORAL 6-07 mouth ity of 11:23: daily. [place] [address] Medical Branch DOCOSAHEXAN Yes 1000mg Take 1,000 [facility] OIC 6-07 mg by ity of ACID/EPA 11:23: mouth [place] (FISH OIL 09 daily. Medical ORAL) Branch BIOTIN ORAL Yes Take by Uni vers 6-07 mouth. ity of 11:23: [place] [address] Medical Branch FOLIC ACID Yes Take by Univ ers ORAL 6-07 mouth ity of 11:23: daily. [place] [address] Medical Branch MULTIVIT Yes Take by [facility]iver s &MINERALS/F 6-07 mouth. ity of ERROUS FUM 11:23: [place] (MULTI 09 Medical VITAMIN Branch ORAL) METHYLCELLU Yes Univer s LOSE (FIBER 6-07 ity of THERAPY 11:23: [place] MIS) 09 Medical Branch DOCUSATE Yes Take by [facility] s SODIUM 6-07 mouth. ity [...] [place] [facility] MULTIVIT Yes Take by Univer [...] 09 Medical VITAMIN Branch ORAL) METHYLCELLU Yes [facility] LOSE (FIBER 6-07 ity of THERAPY 11:23: [place] MISC) 09 Medical Branch DOCUSATE Yes Take by [facility] SODIUM 6-07 mouth. ity of (COLACE [...] Branch unit tablet CRANBERRY Yes Take by [facility] rs FRUIT 6-07 mouth ity of EXTRACT [...] 6-07 mouth. ity of ERROUS FUM 11:23: (MULTI 09 Medical VITAMIN Branch ORAL) METHYLCELLU Yes Univer s LOSE (FIBER 6-07 ity of THERAPY 11:23: [facility]) Medical Branch DOCUSATE Yes Take by [...] Branch unit tablet CRANBERRY Yes Take by [facility] FRUIT 6-07 mouth ity of EXTRACT [...] Uni vers 6-07 mouth. ity of 11:23: [place] [address] Medical Branch FOLIC ACID Yes Take by Univ ers ORAL 6-07 mouth ity of 11:23: daily. [place] [address] Medical Branch MULTIVIT Yes Take by Univer s &MINERALS/F 6-07 mouth. ity of ERROUS FUM 11:23: [place] (MULTI 09 Medical VITAMIN Branch ORAL) METHYLCELLU 0 Yes Univer s LOSE (FIBER 6-07 ity of THERAPY 11:23: [facility]) 09 Medical Branch DOCUSATE Yes Take [...] unit tablet CRANBERRY 0 Yes Take by [facility] FRUIT 6-07 mouth ity of EXTRACT [...] Uni vers 6-07 mouth. ity of 11:23: [place] Medical Branch FOLIC ACID Yes Take by Univ ers ORAL 6-07 mouth ity of 11:23: daily. [place] [facility] Branch MULTIVIT Yes Take by [facility] &MINERALS/F 6-07 mouth. ity of ERROUS FUM 11:23: [place] (MULTI 09 Medical VITAMIN Branch ORAL) METHYLCELLU 0 Yes [facility] LOSE (FIBER 6-07 ity of THERAPY 11:23: [place] MISC) 09 Medical Branch DOCUSATE Yes Take by [facility] SODIUM 6-07 mouth. ity of (COLACE [...] unit tablet CRANBERRY 2021-0 Yes Take by [facility] rs FRUIT 6-07 mouth ity of EXTRACT 11:23: daily. [place] (CRANBERRY Medical ORAL) Branch CALCIUM 0 Yes Take by [facility] ORAL 6-07 mouth ity of 11:23: daily. [place] Medical Branch DOCOSAHEXAN 2022-0 Yes 1000mg Take 1,000 [facility] OIC 6-07 mg by ity of ACID/EPA 11:23: mouth [place] (FISH OIL 09 daily. Medical ORAL) Branch BIOTIN ORAL Yes Take by Uni vers 6-07 mouth. ity of 11:23: Medical Branch FOLIC ACID Yes Take by Univ ers ORAL 6-07 mouth ity of 11:23: daily. [place] Medical Branch MULTIVIT Yes Take by [facility]iver s &MINERALS/F 6-07 mouth. ity of ERROUS FUM 11:23: [place] (MULTI 09 Medical VITAMIN Branch ORAL) METHYLCELLU Yes [facility] LOSE (FIBER 6-07 ity of THERAPY 11:23: [place] MISC) 09 Medical Branch DOCUSATE Yes Take by [facility] SODIUM 6-07 mouth. ity of (COLACE [...] [place] [facility] Branch MULTIVIT Yes Take by Univer s &MINERALS/F 6-07 mouth. ity of ERROUS FUM 11:23: [place] (MULTI 09 Medical VITAMIN Branch ORAL) METHYLCELLU 2022-0 Yes [facility] LOSE (FIBER 6-07 ity of THERAPY 11:23: [facility]) 09 Medical Branch DOCUSATE Yes Take by [facility] SODIUM 6-07 mouth. ity of (COLACE [...] Branch unit tablet CRANBERRY Yes Take by [facility] [place] [facility] rs FRUIT 6-07 mouth ity of EXTRACT 11:23: daily. [place] (CRANBERRY Medical ORAL) Branch CALCIUM Yes Take by [facility] ORAL 6-07 mouth ity of 11:23: daily. [place] Medical Branch DOCOSAHEXAN Yes 1000mg Take 1,000 [facility] OIC 6-07 mg by ity of ACID/EPA 11:23: mouth [place] (FISH OIL 09 daily. Medical ORAL) Branch BIOTIN ORAL Yes Take by Uni vers 6-07 mouth. ity of 11:23: [place] Medical Branch FOLIC ACID Yes Take by Univ ers ORAL 6-07 mouth ity of 11:23: daily. [place] [facility] Branch MULTIVIT Yes Take by [facility] &MINERALS/F 6-07 mouth. ity of ERROUS FUM 11:23: [place] (MULTI 09 Medical VITAMIN Branch ORAL) METHYLCELLU Yes Univer s LOSE (FIBER 6-07 ity of THERAPY 11:23: [facility]) 09 Medical Branch DOCUSATE Yes Take by [facility] SODIUM 6-07 mouth. ity of (COLACE [...] Branch unit tablet CRANBERRY Yes Take by [facility] FRUIT 6-07 mouth ity of EXTRACT [...] [place] [facility] MULTIVIT Yes Take by [facility] &MINERALS/F 6-07 mouth. ity of ERROUS FUM 11:23: [place] (MULTI 09 Medical VITAMIN Branch ORAL) METHYLCELLU Yes Univer s LOSE (FIBER 6-07 ity of THERAPY 11:23: [place] MISC) 09 Medical Branch DOCUSATE Yes Take by [facility] SODIUM 6-07 mouth. ity of (COLACE [...] Branch unit tablet CRANBERRY Yes Take by [facility] FRUIT 6-07 mouth ity of EXTRACT [...] [place] [facility] Branch MULTIVIT Yes Take by Univer s &MINERALS/F 6-07 mouth. ity of ERROUS FUM 11:23: [place] (MULTI 09 Medical VITAMIN Branch ORAL) METHYLCELLU 0 Yes Univer s LOSE (FIBER 6-07 ity of THERAPY 11:23: [facility]) 09 Medical Branch DOCUSATE Yes Take [...] [place] [facility] MULTIVIT Yes Take by Univer s &MINERALS/F 6-07 mouth. ity of ERROUS FUM 11:23: [place] (MULTI 09 Medical VITAMIN Branch ORAL) METHYLCELLU 0 Yes Univer s LOSE (FIBER 6-07 ity of THERAPY 11:23: [facility]) 09 Medical Branch DOCUSATE 2022-0 Yes Take by [facility] SODIUM 6-07 mouth. ity of (COLACE [...] Branch unit tablet CRANBERRY Yes Take by [facility] [place] [facility] rs FRUIT 6-07 mouth ity of EXTRACT 11:23: daily. [place] (CRANBERRY Medical ORAL) Branch CALCIUM Yes Take by [facility] ORAL 6-07 mouth ity of 11:23: daily. [place] Medical Branch DOCOSAHEXAN Yes 1000mg Take 1,000 [facility] OIC 6-07 mg by ity of ACID/EPA 11:23: mouth [place] (FISH OIL 09 daily. Medical ORAL) Branch BIOTIN ORAL Yes Take by Uni vers 6-07 mouth. ity of 11:23: [place] [address] Medical Branch FOLIC ACID Yes Take by Univ ers ORAL 6-07 mouth ity of 11:23: daily. [place] [address] Medical Branch MULTIVIT Yes Take by [facility] &MINERALS/F 6-07 mouth. ity of ERROUS FUM 11:23: [place] (MULTI 09 Medical VITAMIN Branch ORAL) METHYLCELLU Yes [facility] s LOSE (FIBER 6-07 ity of THERAPY 11:23: [facility]) 09 Medical Branch DOCUSATE Yes Take by [facility] SODIUM 6-07 mouth. ity of (COLACE [...] Branch unit tablet CRANBERRY Yes Take by [facility] FRUIT 6-07 mouth ity of EXTRACT [...] Uni vers 6-07 mouth. ity of 11:23: [place] Medical Branch FOLIC ACID Yes Take by Univ ers ORAL 6-07 mouth ity of 11:23: daily. [place] [facility] Branch MULTIVIT Yes Take by [facility] s &MINERALS/F 6-07 mouth. ity of ERROUS FUM 11:23: [place] (MULTI 09 Medical VITAMIN Branch ORAL) METHYLCELLU Yes [facility] LOSE (FIBER 6-07 ity of THERAPY 11:23: [place] MISC) Medical Branch DOCUSATE Yes Take by [facility] SODIUM 6-07 mouth. ity of (COLACE [...] Branch unit tablet CRANBERRY Yes Take by [facility] FRUIT 6-07 mouth ity of EXTRACT [...] Uni vers 6-07 mouth. ity of 11:23: [place] [address] Medical Branch FOLIC ACID Yes Take by [facility] ers ORAL 6-07 mouth ity of 11:23: daily. [place] [address] Medical Branch MULTIVIT Yes Take by [facility] &MINERALS/F 6-07 mouth. ity of ERROUS FUM 11:23: [place] ([place] [address] Medical VITAMIN Branch ORAL) METHYLCELLU Yes Univer s LOSE (FIBER 6-07 ity of THERAPY 11:23: [facility]) 09 Medical Branch DOCUSATE Yes Take by [facility] SODIUM 6-07 mouth. ity of (COLACE [...] Branch unit tablet CRANBERRY Yes Take by [facility] [place] [facility] rs FRUIT 6-07 mouth ity of EXTRACT 11:23: daily. [place] (CRANBERRY 09 Medical ORAL) Branch CALCIUM Yes Take by [facility] ORAL 6-07 mouth ity of 11:23: daily. [place] [address] Medical Branch DOCOSAHEXAN Yes 1000mg Take 1,000 [facility] OIC 6-07 mg by ity of ACID/EPA 11:23: mouth [place] (FISH OIL 09 daily. Medical ORAL) Branch BIOTIN ORAL Yes Take by Uni vers 6-07 mouth. ity of 11:23: [place] [address] Medical Branch FOLIC ACID Yes Take by [facility] ers ORAL 6-07 mouth ity of 11:23: daily. [place] [address] Medical Branch MULTIVIT Yes Take by [facility] &MINERALS/F 6-07 mouth. ity of ERROUS FUM 11:23: [place] ([place] [address] Medical VITAMIN Branch ORAL) METHYLCELLU Yes Univer s LOSE (FIBER 6-07 ity of THERAPY 11:23: [facility]) 09 Medical Branch DOCUSATE Yes Take by [facility] s SODIUM 6-07 mouth. ity [...] Branch unit tablet CRANBERRY Yes Take by [facility] FRUIT 6-07 mouth ity of EXTRACT [...] Uni vers 6-07 mouth. ity of 11:23: [place] Medical Branch FOLIC ACID Yes Take by Univ ers ORAL 6-07 mouth ity of 11:23: daily. [place] [facility] Branch MULTIVIT Yes Take by [facility] &MINERALS/F 6-07 mouth. ity of ERROUS FUM 11:23: [place] (MULTI 09 Medical VITAMIN Branch ORAL) METHYLCELLU Yes Univer s LOSE (FIBER 6-07 ity of THERAPY 11:23: [place] MISC) 09 Medical Branch DOCUSATE Yes Take by [facility] SODIUM 6-07 mouth. ity of (COLACE [...] Branch unit tablet CRANBERRY Yes Take by [facility] [place] [facility] rs FRUIT 6-07 mouth ity of EXTRACT 11:23: daily. [place] (CRANBERRY 09 Medical ORAL) Branch CALCIUM 2022-0 [...] [place] [facility] MULTIVIT Yes Take by Univer [...] 09 Medical Branch MULTIVIT Yes Take by [facility] &MINERALS/F 6-07 mouth. ity of ERROUS FUM 11:23: [place] ([place] [address] Medical VITAMIN Branch ORAL) METHYLCELLU Yes [facility] LOSE (FIBER 6-07 ity of THERAPY 11:23: [facility]) Medical Branch DOCUSATE Yes Take by [...] Branch unit tablet CRANBERRY Yes Take by [facility] [place] [facility] rs FRUIT 6-07 mouth ity of EXTRACT 11:23: daily. [place] (CRANBERRY 09 Medical ORAL) Branch CALCIUM Yes Take by [facility] ORAL 6-07 mouth ity of 11:23: daily. [place] [address] Medical Branch DOCOSAHEXAN Yes 1000mg Take 1,000 [facility] OIC 6-07 mg by ity of ACID/EPA 11:23: mouth [place] (FISH OIL 09 daily. Medical ORAL) Branch BIOTIN ORAL Yes Take by Uni vers 6-07 mouth. ity of 11:23: [place] [address] Medical Branch FOLIC ACID Yes Take by Univ ers ORAL 6-07 mouth ity of 11:23: daily. [place] [address] Medical Branch MULTIVIT Yes Take by [facility] &MINERALS/F 6-07 mouth. ity of ERROUS FUM 11:23: [place] ([facility] 09 Medical VITAMIN Branch ORAL) METHYLCELLU 0 Yes Univer s LOSE (FIBER 6-07 ity of THERAPY 11:23: [facility]) Medical Branch DOCUSATE Yes Take by [facility] SODIUM 6-07 mouth. ity of (COLACE [...] rs FRUIT 6- mouth ity of EXTRACT 11:23: daily. [place] (CRANBERRY 09 Medical ORAL) Branch CALCIUM Yes Take by [facility] ORAL 6 mouth ity of 11:23: daily. [place] Medical Branch DOCOSAHEXAN Yes 1000mg Take 1,000 [facility] OIC 6-07 mg by ity of ACID/EPA 11:23: mouth [place] (FISH OIL 09 daily. Medical ORAL) Branch BIOTIN ORAL Yes Take by Uni vers 6- mouth. ity of 11:23: [place] Medical Branch FOLIC ACID Yes Take by Univ ers ORAL 6 mouth ity of 11:58: daily. [place] [address] Medical Branch MULTIVIT Yes Take by [facility] s &MINERALS/F 6- mouth. ity of ERROUS FUM 11:58: [place] (MULTI 16 Medical VITAMIN Branch ORAL) METHYLCELLU Yes [facility] LOSE (FIBER 6- ity of THERAPY 11:58: [place] MIS) 16 Medical Branch DOCUSATE Yes Take by Univer s SODIUM 6-01 mouth. ity of (COLACE 11:58: [place] ORAL) 16 Medical Branch vitamin C Yes 1000mg Take 1,000 [facility] with derrell 6-01 mg by ity of hips 11:58: mouth [place] (VITAMIN C) 16 daily. Medica l 1,000 mg Branch tablet cholecalcif Yes 1000U Take 1,000 [facility] edmar, 6-01 Units by ity of vitamin D3, 11:58: mouth [place] (VITAMIN 16 daily. Medical D3) 1,000 Branch unit tablet CRANBERRY 0 Yes Take by Unive rs FRUIT 6- mouth ity of EXTRACT 11:58: daily. [place] (CRANBERRY 16 Medical ORAL) Branch CALCIUM Yes Take by [facility] ORAL 6- mouth ity of 11:58: daily. [place] 16 Medical Branch DOCOSAHEXAN 2022-0 Yes 1000mg Take 1,000 [facility] OIC 6-01 mg by ity of ACID/EPA 11:58: mouth [place] (FISH OIL 16 daily. Medical ORAL) Branch BIOTIN ORAL 2021-0 Yes Take by Uni vers 6-01 mouth. ity of 11:58: [place] 16 Medical Branch metformin 2021-0 Yes [id number] 500mg Take 1 U nivers ER 500 mg 5-31 tablet by ity o f 24 hr 00:00: mouth [place] tablet 00 daily with Medical breakfast. Branch STOP REGULAR METFORMIN. metformin 2021-0 Yes [id number] 500mg Take 1 U nivers ER 500 mg 5-31 tablet by ity o f 24 hr 00:00: mouth [place] tablet 00 daily with Medical breakfast. Branch STOP REGULAR METFORMIN. metformin 2021-0 Yes [id number] 500mg Take 1 U nivers ER 500 mg 5-31 tablet by ity o f 24 hr 00:00: mouth [place] tablet 00 daily with Medical breakfast. Branch STOP REGULAR METFORMIN. metformin 2021-0 Yes [id number] 500mg Take 1 U nivers ER 500 mg 5-31 tablet by ity o f 24 hr 00:00: mouth [place] tablet 00 daily with Medical breakfast. Branch STOP REGULAR METFORMIN. metformin 0 Yes [id number] 500mg Take 1 U nivers ER 500 mg 5-31 tablet by ity o f 24 hr 00:00: mouth [place] tablet 00 daily with Medical breakfast. Branch STOP REGULAR METFORMIN. metformin 2021-0 Yes [id number] 500mg Take 1 U nivers ER 500 mg 5-31 tablet by ity o f 24 hr 00:00: mouth [place] tablet 00 daily with Medical breakfast. Branch STOP REGULAR METFORMIN. metformin 2021-0 Yes [id number] 500mg Take 1 U nivers ER 500 mg 5-31 tablet by ity o f 24 hr 00:00: mouth [place] tablet 00 daily with Medical breakfast. Branch STOP REGULAR METFORMIN. metformin 2021-0 Yes [id number] 500mg Take 1 U nivers ER 500 mg 5-31 tablet by ity o f 24 hr 00:00: mouth [place] tablet 00 daily with Medical breakfast. Branch STOP REGULAR METFORMIN. metformin 2021-0 Yes [id number] 500mg Take 1 U nivers ER 500 mg 5-31 tablet by ity o f 24 hr 00:00: mouth [place] tablet 00 daily with Medical breakfast. Branch STOP REGULAR METFORMIN. metformin 2021-0 Yes [id number] 500mg Take 1 U nivers ER 500 mg 5-31 tablet by ity o f 24 hr 00:00: mouth [place] tablet 00 daily with Medical breakfast. Branch STOP REGULAR METFORMIN. metformin 2021-0 Yes [id number] 500mg Take 1 U nivers ER 500 mg 5-31 tablet by ity o f 24 hr 00:00: mouth [place] tablet 00 daily with Medical breakfast. Branch STOP REGULAR METFORMIN. metformin 2021-0 Yes [id number] 500mg Take 1 U nivers ER 500 mg 5-31 tablet by ity o f 24 hr 00:00: mouth [place] tablet 00 daily with Medical breakfast. Branch STOP REGULAR METFORMIN. metformin 2021-0 Yes [id number] 500mg Take 1 U nivers ER 500 mg 5-31 tablet by ity o f 24 hr 00:00: mouth [place] tablet 00 daily with Medical breakfast. Branch STOP REGULAR METFORMIN. metformin 2021-0 Yes [id number] 500mg Take 1 U nivers ER 500 mg 5-31 tablet by ity o f 24 hr 00:00: mouth [place] tablet 00 daily with Medical breakfast. Branch STOP REGULAR METFORMIN. metformin 2021-0 Yes [id number] 500mg Take 1 U nivers ER 500 mg 5-31 tablet by ity o f 24 hr 00:00: mouth [place] tablet 00 daily with Medical breakfast. Branch STOP REGULAR METFORMIN. metformin 2021-0 Yes [id number] 500mg Take 1 U nivers ER 500 mg 5-31 tablet by ity o f 24 hr 00:00: mouth [place] tablet 00 daily with Medical breakfast. Branch STOP REGULAR METFORMIN. metformin 2021-0 Yes [id number] 500mg Take 1 U nivers ER 500 mg 5-31 tablet by ity o f 24 hr 00:00: mouth [place] tablet 00 daily with Medical breakfast. Branch STOP REGULAR METFORMIN. metformin 2021-0 Yes [id number] 500mg Take 1 U nivers ER 500 mg 5-31 tablet by ity o f 24 hr 00:00: mouth [place] tablet 00 daily with Medical breakfast. Branch STOP REGULAR METFORMIN. metformin 2021-0 Yes [id number] 500mg Take 1 U nivers ER 500 mg 5-31 tablet by ity o f 24 hr 00:00: mouth [place] tablet 00 daily with Medical breakfast. Branch STOP REGULAR METFORMIN. metformin 2021-0 Yes [id number] 500mg Take 1 U nivers ER 500 mg 5-31 tablet by ity o f 24 hr 00:00: mouth [place] tablet 00 daily with Medical breakfast. Branch STOP REGULAR METFORMIN. metformin 2021-0 Yes [id number] 500mg Take 1 U nivers ER 500 mg 5-31 tablet by ity o f 24 hr 00:00: mouth [place] tablet 00 daily with Medical breakfast. Branch STOP REGULAR METFORMIN. metformin 2021-0 Yes [id number] 500mg Take 1 U nivers ER 500 mg 5-31 tablet by ity o f 24 hr 00:00: mouth [place] tablet 00 daily with Medical breakfast. Branch STOP REGULAR METFORMIN. metformin 2021-0 Yes [id number] 500mg Take 1 U nivers ER 500 mg 5-31 tablet by ity o f 24 hr 00:00: mouth [place] tablet 00 daily with Medical breakfast. Branch STOP REGULAR METFORMIN. metformin 2021-0 Yes [id number] 500mg Take 1 U nivers ER 500 mg 5-31 tablet by ity o f 24 hr 00:00: mouth [place] tablet 00 daily with Medical breakfast. Branch STOP REGULAR METFORMIN. metformin 2021-0 Yes [id number] 500mg Take 1 U nivers ER 500 mg 5-31 tablet by ity o f 24 hr 00:00: mouth [place] tablet 00 daily with Medical breakfast. Branch STOP REGULAR METFORMIN. metformin 2021-0 Yes [id number] 500mg Take 1 U nivers ER 500 mg 5-31 tablet by ity o f 24 hr 00:00: mouth [place] tablet 00 daily with Medical breakfast. Branch STOP REGULAR METFORMIN. metformin 2021-0 Yes [id number] 500mg Take 1 U nivers ER 500 mg 5-31 tablet by ity o f 24 hr 00:00: mouth [place] tablet 00 daily with Medical breakfast. Branch STOP REGULAR METFORMIN. metformin 2021-0 Yes [id number] 500mg Take 1 U nivers ER 500 mg 5-31 tablet by ity o f 24 hr 00:00: mouth [place] tablet 00 daily with Medical breakfast. Branch STOP REGULAR METFORMIN. metformin 2021-0 Yes [id number] 500mg Take 1 U nivers ER 500 mg 5-31 tablet by ity o f 24 hr 00:00: mouth [place] tablet 00 daily with Medical breakfast. Branch STOP REGULAR METFORMIN. metformin 2021-0 Yes [id number] 500mg Take 1 U nivers ER 500 mg 5-31 tablet by ity o f 24 hr 00:00: mouth [place] tablet 00 daily with Medical breakfast. Branch STOP REGULAR METFORMIN. metformin 2021-0 Yes [id number] 500mg Take 1 U nivers ER 500 mg 5-31 tablet by ity o f 24 hr 00:00: mouth [place] tablet 00 daily with Medical breakfast. Branch STOP REGULAR METFORMIN. metformin 2021-0 Yes [id number] 500mg Take 1 U nivers ER 500 mg 5-31 tablet by ity o f 24 hr 00:00: mouth [place] tablet 00 daily with Medical breakfast. Branch STOP REGULAR METFORMIN. metformin 2021-0 Yes [id number] 500mg Take 1 U nivers ER 500 mg 5-31 tablet by ity o f 24 hr 00:00: mouth [place] tablet 00 daily with Medical breakfast. Branch STOP REGULAR METFORMIN. metformin 2021-0 Yes [id number] 500mg Take 1 U nivers ER 500 mg 5-31 tablet by ity o f 24 hr 00:00: mouth [place] tablet 00 daily with Medical breakfast. Branch STOP REGULAR METFORMIN. metformin 2021-0 Yes [id number] 500mg Take 1 U nivers ER 500 mg 5-31 tablet by ity o f 24 hr 00:00: mouth [place] tablet 00 daily with Medical breakfast. Branch STOP REGULAR METFORMIN. metformin 2021-0 Yes [id number] 500mg Take 1 U nivers ER 500 mg 5-31 tablet by ity o f 24 hr 00:00: mouth [place] tablet 00 daily with Medical breakfast. Branch STOP REGULAR METFORMIN. metformin 2021-0 Yes [id number] 500mg Take 1 U nivers ER 500 mg 5-31 tablet by ity o f 24 hr 00:00: mouth [place] tablet 00 daily with Medical breakfast. Branch STOP REGULAR METFORMIN. metformin 2021-0 Yes [id number] 500mg Take 1 U nivers ER 500 mg 5-31 tablet by ity o f 24 hr 00:00: mouth [place] tablet 00 daily with Medical breakfast. Branch STOP REGULAR METFORMIN. metformin 2021-0 Yes [id number] 500mg Take 1 U nivers ER 500 mg 5-31 tablet by ity o f 24 hr 00:00: mouth [place] tablet 00 daily with Medical breakfast. Branch STOP REGULAR METFORMIN. metformin 2021-0 Yes [id number] 500mg Take 1 U nivers ER 500 mg 5-31 tablet by ity o f 24 hr 00:00: mouth [place] tablet 00 daily with Medical breakfast. Branch STOP REGULAR METFORMIN. metformin 2021-0 Yes [id number] 500mg Take 1 U nivers ER 500 mg 5-31 tablet by ity o f 24 hr 00:00: mouth [place] tablet 00 daily with Medical breakfast. Branch STOP REGULAR METFORMIN. metformin 2021-0 Yes [id number] 500mg Take 1 U nivers ER 500 mg 5-31 tablet by ity o f 24 hr 00:00: mouth [place] tablet 00 daily with Medical breakfast. Branch STOP REGULAR METFORMIN. metformin 2021-0 Yes [id number] 500mg Take 1 U nivers ER 500 mg 5-31 tablet by ity o f 24 hr 00:00: mouth [place] tablet 00 daily with Medical breakfast. Branch STOP REGULAR METFORMIN. metformin 2021-0 Yes [id number] 500mg Take 1 U nivers ER 500 mg 5-31 tablet by ity o f 24 hr 00:00: mouth [place] tablet 00 daily with Medical breakfast. Branch STOP REGULAR METFORMIN. metformin 2021-0 Yes [id number] 500mg Take 1 U nivers ER 500 mg 5-31 tablet by ity o f 24 hr 00:00: mouth [place] tablet 00 daily with Medical breakfast. Branch STOP REGULAR METFORMIN. metformin 2021-0 Yes [id number] 500mg Take 1 U nivers ER 500 mg 5-31 tablet by ity o f 24 hr 00:00: mouth [place] tablet 00 daily with Medical breakfast. Branch STOP REGULAR METFORMIN. metformin 2021-0 Yes [id number] 500mg Take 1 U nivers ER 500 mg 5-31 tablet by ity o f 24 hr 00:00: mouth [place] tablet 00 daily with Medical breakfast. Branch STOP REGULAR METFORMIN. metformin 2021-0 Yes [id number] 500mg Take 1 U nivers ER 500 mg 5-31 tablet by ity o f 24 hr 00:00: mouth [place] tablet 00 daily with Medical breakfast. Branch STOP REGULAR METFORMIN. metformin 2021-0 2022- No [id number] 500mg Take 1 [facility] ER 500 mg 5-31 10-13 tablet by ity of 24 hr 00:00: 00:00 mouth [place] tablet 00 :00 daily with Medical breakfast. Branch STOP REGULAR METFORMIN. ibuprofen 2021-0 Yes [id number] 600mg Take 1 [facility] 600 mg 5-19 [id number] tablet by ity of tablet 00:00: mouth [place] 00 every 6 Medical (six) Branch hours as needed for Pain (scale 4-6). ibuprofen 2022-0 Yes [id number] 600mg Take 1 [facility] 600 mg 5-19 [id number] tablet by ity of tablet 00:00: mouth [place] 00 every 6 Medical (six) Branch hours as needed for Pain (scale 4-6). ibuprofen 2022-0 Yes [id number] 600mg Take 1 [facility] 600 mg 5-19 [id number] tablet by ity of tablet 00:00: mouth [place] 00 every 6 Medical (six) Branch hours as needed for Pain (scale 4-6). ibuprofen 2022-0 Yes [id number] 600mg Take 1 [facility] 600 mg 5-19 [id number] tablet by ity of tablet 00:00: mouth [place] 00 every 6 Medical (six) Branch hours as needed for Pain (scale 4-6). ibuprofen 2022-0 Yes [id number] 600mg Take 1 [facility] 600 mg 5-19 [id number] tablet by ity of tablet 00:00: mouth [place] 00 every 6 Medical (six) Branch hours as needed for Pain (scale 4-6). ibuprofen 2022-0 Yes [id number] 600mg Take 1 [facility] 600 mg 5-19 [id number] tablet by ity of tablet 00:00: mouth [place] 00 every 6 Medical (six) Branch hours as needed for Pain (scale 4-6). ibuprofen 2022-0 Yes [id number] 600mg Take 1 [facility] 600 mg 5-19 [id number] tablet by ity of tablet 00:00: mouth [place] 00 every 6 Medical (six) Branch hours as needed for Pain (scale 4-6). ibuprofen 2022-0 Yes [id number] 600mg Take 1 [facility] 600 mg 5-19 [id number] tablet by ity of tablet 00:00: mouth [place] 00 every 6 Medical (six) Branch hours as needed for Pain (scale 4-6). ibuprofen 2022-0 Yes [id number] 600mg Take 1 [facility] 600 mg 5-19 [id number] tablet by ity of tablet 00:00: mouth [place] 00 every 6 Medical (six) Branch hours as needed for Pain (scale 4-6). ibuprofen 2022-0 Yes [id number] 600mg Take 1 [facility] 600 mg 5-19 [id number] tablet by [facility] tablet 00:00: mouth [place] 00 every 6 Medical (six) Branch hours as needed for Pain (scale 4-6). ibuprofen 2022-0 Yes [id number] 600mg Take 1 [facility] 600 mg 5-19 [id number] tablet by [facility] of tablet 00:00: mouth [place] 00 every 6 Medical (six) Branch hours as needed for Pain (scale 4-6). ibuprofen 2022-0 Yes [id number] 600mg Take 1 [facility] 600 mg 5-19 [id number] tablet by [facility] tablet 00:00: mouth [place] 00 every 6 Medical (six) Branch hours as needed for Pain (scale 4-6). ibuprofen 2022-0 Yes [id number] 600mg Take 1 [facility] 600 mg 5-19 [id number] tablet by [facility] of tablet 00:00: mouth [place] 00 every 6 Medical (six) Branch hours as needed for Pain (scale 4-6). ibuprofen 2022-0 Yes [id number] 600mg Take 1 [facility] 600 mg 5-19 [id number] tablet by [facility] of tablet 00:00: mouth [place] 00 every 6 Medical (six) Branch hours as needed for Pain (scale 4-6). ibuprofen 2022-0 Yes [id number] 600mg Take 1 [facility] 600 mg 5-19 [id number] tablet by [facility] of tablet 00:00: mouth [place] 00 every 6 Medical (six) Branch hours as needed for Pain (scale 4-6). ibuprofen 2022-0 Yes [id number] 600mg Take 1 [facility] 600 mg 5-19 [id number] tablet by [facility] of tablet 00:00: mouth [place] 00 every 6 Medical (six) Branch hours as needed for Pain (scale 4-6). ibuprofen 2022-0 Yes [id number] 600mg Take 1 [facility] 600 mg 5-19 [id number] tablet by [facility] tablet 00:00: mouth [place] 00 every 6 Medical (six) Branch hours as needed for Pain (scale 4-6). ibuprofen 2022-0 Yes [id number] 600mg Take 1 [facility] 600 mg 5-19 [id number] tablet by [facility] tablet 00:00: mouth [place] 00 every 6 Medical (six) Branch hours as needed for Pain (scale 4-6). ibuprofen 2022-0 Yes [id number] 600mg Take 1 [facility] 600 mg 5-19 [id number] tablet by [facility] tablet 00:00: mouth [place] 00 every 6 Medical (six) Branch hours as needed for Pain (scale 4-6). ibuprofen 2022-0 Yes [id number] 600mg Take 1 [facility] 600 mg 5-19 [id number] tablet by [facility] tablet 00:00: mouth [place] 00 every 6 Medical (six) Branch hours as needed for Pain (scale 4-6). ibuprofen 2022-0 Yes [id number] 600mg Take 1 [facility] 600 mg 5-19 [id number] tablet by [facility] of tablet 00:00: mouth [place] 00 every 6 Medical (six) Branch hours as needed for Pain (scale 4-6). ibuprofen 2022-0 Yes [id number] 600mg Take 1 [facility] 600 mg 5-19 [id number] tablet by [facility] of tablet 00:00: mouth [place] 00 every 6 Medical (six) Branch hours as needed for Pain (scale 4-6). ibuprofen 2022-0 Yes [id number] 600mg Take 1 [facility] 600 mg 5-19 [id number] tablet by [facility] of tablet 00:00: mouth [place] 00 every 6 Medical (six) Branch hours as needed for Pain (scale 4-6). ibuprofen 2022-0 Yes [id number] 600mg Take 1 [facility] 600 mg 5-19 [id number] tablet by [facility] of tablet 00:00: mouth [place] 00 every 6 Medical (six) Branch hours as needed for Pain (scale 4-6). ibuprofen 2022-0 Yes [id number] 600mg Take 1 [facility] 600 mg 5-19 [id number] tablet by [facility] of tablet 00:00: mouth [place] 00 every 6 Medical (six) Branch hours as needed for Pain (scale 4-6). ibuprofen 2022-0 Yes [id number] 600mg Take 1 [facility] 600 mg 5-19 [id number] tablet by [facility] of tablet 00:00: mouth [place] 00 every 6 Medical (six) Branch hours as needed for Pain (scale 4-6). ibuprofen 2022-0 Yes [id number] 600mg Take 1 [facility] 600 mg 5-19 [id number] tablet by [facility] of tablet 00:00: mouth [place] 00 every 6 Medical (six) Branch hours as needed for Pain (scale 4-6). ibuprofen 2022-0 Yes [id number] 600mg Take 1 [facility] 600 mg 5-19 [id number] tablet by [facility] of tablet 00:00: mouth [place] 00 every 6 Medical (six) Branch hours as needed for Pain (scale 4-6). ibuprofen 2022-0 Yes [id number] 600mg Take 1 [facility] 600 mg 5-19 [id number] tablet by [facility] of tablet 00:00: mouth [place] 00 every 6 Medical (six) Branch hours as needed for Pain (scale 4-6). ibuprofen 2022-0 Yes [id number] 600mg Take 1 [facility] 600 mg 5-19 [id number] tablet by [facility] of tablet 00:00: mouth [place] 00 every 6 Medical (six) Branch hours as needed for Pain (scale 4-6). ibuprofen 2-0 Yes [id number] 600mg Take 1 [facility] 600 mg 5-19 [id number] tablet by [facility] of tablet 00:00: mouth [place] 00 every 6 Medical (six) Branch hours as needed for Pain (scale 4-6). ibuprofen 2021-0 Yes [id number] 600mg Take 1 [facility] 600 mg 5-19 [id number] tablet by [facility] of tablet 00:00: mouth [place] 00 every 6 Medical (six) Branch hours as needed for Pain (scale 4-6). ibuprofen 2021-0 Yes [id number] 600mg Take 1 [facility] 600 mg 5-19 [id number] tablet by [facility] of tablet 00:00: mouth [place] 00 every 6 Medical (six) Branch hours as needed for Pain (scale 4-6). ibuprofen 2021-0 Yes [id number] 600mg Take 1 [facility] 600 mg 5-19 [id number] tablet by [facility] of tablet 00:00: mouth [place] 00 every 6 Medical (six) Branch hours as needed for Pain (scale 4-6). ibuprofen 2021-0 Yes [id number] 600mg Take 1 [facility] 600 mg 5-19 [id number] tablet by [facility] of tablet 00:00: mouth [place] 00 every 6 Medical (six) Branch hours as needed for Pain (scale 4-6). ibuprofen 2021-0 Yes [id number] 600mg Take 1 [facility] 600 mg 5-19 [id number] tablet by [facility] of tablet 00:00: mouth [place] 00 every 6 Medical (six) Branch hours as needed for Pain (scale 4-6). ibuprofen 2022-0 2022- No [id number] 600mg Take 1 [facility] 600 mg 5-19 - [id number] tablet by [facility] o f tablet 00:00: 00:00 mouth [place] 00 :00 every 6 Medical (six) Branch hours as needed for Pain (scale 4-6). ibuprofen 2022-0 2022- No [id number] 600mg Take 1 [facility] 600 mg 02-11 [id number] tablet by [facility] o f tablet 00:00: 00:00 mouth [place] 00 :00 every 6 Medical (six) Branch hours as needed for Pain (scale 4-6). ibuprofen 2021-0 2022- No [id number] 600mg Take 1 [facility] 600 mg 02-11 [id number] tablet by [facility] o f tablet 00:00: 00:00 mouth [place] 00 :00 every 6 Medical (six) Branch hours as needed for Pain (scale 4-6). topiramate 2021-0 Yes [id number] 50mg Take 2 [facility] 25 mg 5-16 tablets by [facility] of tablet 00:00: mouth [address] [place] [address] (two) Medical times Branch daily. topiramate 2021-0 Yes [id number] 50mg Take 2 [facility] 25 mg 5-16 tablets by [facility] of tablet 00:00: [address] (two) Medical times Branch daily. topiramate 2021-0 Yes [id number] 50mg Take 2 [facility] 25 mg 5-16 tablets by [facility] of tablet 00:00: mouth [address] [place] [address] (two) Medical times Branch daily. topiramate 2021-0 Yes [id number] 50mg Take 2 [facility] 25 mg 5-16 tablets by [facility] of tablet 00:00: [address] (two) Medical times Branch daily. topiramate 2021-0 Yes [id number] 50mg Take 2 [facility] 25 mg 5-16 tablets by [facility] of tablet 00:00: [address] (two) Medical times Branch daily. topiramate 2021-0 Yes [id number] 50mg Take 2 [facility] 25 mg 5-16 tablets by [facility] of tablet 00:00: mouth [address] [place] [address] (two) Medical times Branch daily. topiramate 2021-0 Yes [id number] 50mg Take 2 [facility] 25 mg 5-16 tablets by [facility] of tablet 00:00: mouth [address] [place] [address] (two) Medical times Branch daily. topiramate 2021-0 Yes [id number] 50mg Take 2 [facility] 25 mg 5-16 tablets by [facility] of tablet 00:00: mouth [address] [place] [address] (two) Medical times Branch daily. topiramate 2021-0 Yes [id number] 50mg Take 2 [facility] 25 mg 5-16 tablets by [facility] of tablet 00:00: mouth 2 (two) Medical times Branch daily. SUMAtriptan 2-0 Yes [id number] 50mg Take 1 [facility] 50 mg 5-16 tablet by [facility] of tablet 00:00: mouth as [place] 00 needed for Medical Migraine. Branch topiramate 2-0 Yes [id number] 50mg Take 2 [facility] 25 mg 5-16 tablets by [facility] of tablet 00:00: mouth 2 (two) Medical times Branch daily. SUMAtriptan 2022-0 Yes [id number] 50mg Take 1 [facility] 50 mg 5-16 tablet by [facility] of tablet 00:00: mouth as [place] 00 needed for Medical Migraine. Branch topiramate 2-0 Yes [id number] 50mg Take 2 [facility] 25 mg 5-16 tablets by [facility] of tablet 00:00: mouth 2 (two) Medical times Branch daily. SUMAtriptan 2-0 Yes [id number] 50mg Take 1 [facility] 50 mg 5-16 tablet by [facility] of tablet 00:00: mouth as [place] 00 needed for Medical Migraine. Branch topiramate 2-0 Yes [id number] 50mg Take 2 [facility] 25 mg 5-16 tablets by [facility] of tablet 00:00: mouth 2 (two) Medical times Branch daily. SUMAtriptan 2-0 Yes [id number] 50mg Take 1 [facility] 50 mg 5-16 tablet by [facility] of tablet 00:00: mouth as [place] 00 needed for Medical Migraine. Branch topiramate 2-0 Yes [id number] 50mg Take 2 [facility] 25 mg 5-16 tablets by [facility] of tablet 00:00: mouth 2 (two) Medical times Branch daily. SUMAtriptan 2-0 Yes [id number] 50mg Take 1 [facility] 50 mg 5-16 tablet by [facility] of tablet 00:00: mouth as [place] 00 needed for Medical Migraine. Branch topiramate 2022-0 Yes [id number] 50mg Take 2 [facility] 25 mg 5-16 tablets by [facility] of tablet 00:00: mouth 2 (two) Medical times Branch daily. SUMAtriptan 2022-0 Yes [id number] 50mg Take 1 [facility] 50 mg 5-16 tablet by [facility] of tablet 00:00: mouth as [place] 00 needed for Medical Migraine. Branch topiramate 2-0 Yes [id number] 50mg Take 2 [facility] 25 mg 5-16 tablets by [facility] of tablet 00:00: mouth 2 [place] 00 (two) Medical times Branch daily. topiramate 2-0 Yes [id number] 50mg Take 2 [facility] 25 mg 5-16 tablets by [facility] of tablet 00:00: mouth 2 [place] 00 (two) Medical times Branch daily. topiramate 2-0 Yes [id number] 50mg Take 2 [facility] 25 mg 5-16 tablets by [facility] of tablet 00:00: mouth 2 [place] 00 (two) Medical times Branch daily. topiramate 2021-0 Yes [id number] 50mg Take 2 [facility] 25 mg 5-16 tablets by [facility] of tablet 00:00: mouth 2 [place] 00 (two) Medical times Branch daily. topiramate 2021-0 Yes [id number] 50mg Take 2 [facility] 25 mg 5-16 tablets by [facility] of tablet 00:00: mouth 2 [place] 00 (two) Medical times Branch daily. topiramate 2021-0 Yes [id number] 50mg Take 2 [facility] 25 mg 5-16 tablets by [facility] of tablet 00:00: mouth 2 [place] 00 (two) Medical times Branch daily. topiramate 2021-0 2022- No [id number] 50mg Take 2 [facility] 25 mg 5-16 09-01 tablets by [facility] of tablet 00:00: 00:00 mouth 2 [place] 00 :00 (two) Medical times Branch daily. SUMAtriptan 2021-0 2022- No [id number] 50mg Take 1 [facility] 50 mg 5-16 [...] PadM 5-08 Dose to ity of 00:00: [facility] [place] 00 before Medical meals. Branch ALCOHOL Yes 1{dose} Apply 1 [facility] ers PADS PadM 5-08 Dose to ity of 00:00: [facility] [place] 00 before Medical meals. Branch ALCOHOL Yes 1{dose} Apply 1 [facility] ers PADS PadM 5-08 Dose to ity of 00:00: [facility] [place] 00 before Medical meals. Branch ALCOHOL Yes 1{dose} Apply 1 [facility] ers PADS PadM 5-08 Dose to ity of 00:00: [facility] [place] 00 before Medical meals. Branch ALCOHOL Yes 1{dose} Apply 1 [facility] ers PADS PadM 5-08 Dose to ity of 00:00: [facility] [place] 00 before Medical meals. Branch ALCOHOL Yes 1{dose} Apply 1 [facility] ers PADS PadM 5-08 Dose to ity of 00:00: [facility] [place] 00 before Medical meals. [place] ALCOHOL Yes 1{dose} Apply 1 [facility] ers PADS PadM 5-08 Dose to ity of 00:00: [facility] [place] 00 before Medical meals. Branch ALCOHOL Yes 1{dose} Apply 1 [facility] ers PADS PadM 5-08 Dose to ity of 00:00: [facility] [place] 00 before Medical meals. [place] ALCOHOL 2021- No 1{dose} Apply 1 [facility] vers PADS PadM 5-08 -22 Dose to ity of 00:00: 00:00 [facility]() [place] 00 :00 before Medical meals. [place] ALCOHOL 2021- No 1{dose} Apply 1 [facility] vers PADS PadM 5-08 -22 Dose to ity of 00:00: 00:00 [facility]() [place] 00 :00 before Medical meals. [place] ALCOHOL 2021- No 1{dose} Apply 1 [facility] vers PADS PadM 5-08 -22 Dose to ity of 00:00: 00:00 [facility]() [place] 00 :00 before Medical meals. [place] pregabalin Yes [id number] 150mg Take 1 [facility] 150 mg 4-29 capsule by it[facility] of capsule 00:00: mouth 3 [place] 00 (three) Medical times Branch daily. busPIRone 2021-0 Yes [id number] 20mg Take 2 [facility] [place] 10 mg 4-29 tablets by [facility] of tablet 00:00: mouth 2 (two) Medical times Branch daily. citalopram 2021-0 Yes [id number] 40mg Take 1 [facility] 40 mg 4-29 tablet by [facility] of tablet 00:00: mouth daily. Medical Branch pregabalin 2021-0 Yes [id number] 150mg Take 1 [facility] 150 mg 4-29 capsule by [facility] of capsule 00:00: mouth 3 (three) Medical times Branch daily. busPIRone 2021-0 Yes [id number] 20mg Take 2 [facility] [place] 10 mg 4-29 tablets by [facility] of tablet 00:00: mouth (two) Medical times Branch daily. citalopram 2021-0 Yes [id number] 40mg Take 1 [facility] 40 mg 4-29 tablet by [facility] of tablet 00:00: mouth daily. Medical Branch pregabalin 2021-0 Yes [id number] 150mg Take 1 [facility] 150 mg 4-29 capsule by [facility] of capsule 00:00: mouth 3 (three) Medical times Branch daily. busPIRone 2021-0 Yes [id number] 20mg Take 2 [facility] [place] 10 mg 4-29 tablets by [facility] of tablet 00:00: mouth (two) Medical times Branch daily. citalopram 2021-0 Yes [id number] 40mg Take 1 [facility] 40 mg 4-29 tablet by [facility] of tablet 00:00: mouth daily. Medical Branch pregabalin 2021-0 Yes [id number] 150mg Take 1 [facility] 150 mg 4-29 capsule by [facility] of capsule 00:00: mouth 3 (three) Medical times Branch daily. busPIRone 2-0 Yes [id number] 20mg Take 2 [facility] [place] 10 mg 4-29 tablets by [facility] of tablet 00:00: mouth 2 (two) Medical times Branch daily. citalopram 2-0 Yes [id number] 40mg Take 1 [facility] 40 mg 4-29 tablet by [facility] of tablet 00:00: mouth daily. Medical Branch pregabalin 2021-0 Yes [id number] 150mg Take 1 [facility] 150 mg 4-29 capsule by [facility] of capsule 00:00: mouth 3 (three) Medical times Branch daily. busPIRone 2021-0 Yes [id number] 20mg Take 2 [facility] [place] 10 mg 4-29 tablets by [facility] of tablet 00:00: mouth (two) Medical times Branch daily. citalopram 2021-0 Yes [id number] 40mg Take 1 [facility] n[facility] 40 mg 4-29 tablet by [facility] of tablet 00:00: mouth 00 daily. Medical Branch pregabalin 2021-0 Yes [id number] 150mg Take 1 [facility] 150 mg 4-29 capsule by it[facility] of capsule 00:00: mouth (three) Medical times Branch daily. busPIRone 2021-0 Yes [id number] 20mg Take 2 [facility] [place] 10 mg 4-29 tablets by [facility] of tablet 00:00: mouth (two) Medical times Branch daily. citalopram 2021-0 Yes [id number] 40mg Take 1 [facility] n[facility] 40 mg 4-29 tablet by [facility] of tablet 00:00: mouth daily. Medical Branch pregabalin 2021-0 Yes [id number] 150mg Take 1 [facility] 150 mg 4-29 capsule by it[facility] of capsule 00:00: mouth (three) Medical times Branch daily. busPIRone 2021-0 Yes [id number] 20mg Take 2 [facility] [place] 10 mg 4-29 tablets by [facility] of tablet 00:00: mouth (two) Medical times Branch daily. citalopram 2021-0 Yes [id number] 40mg Take 1 [facility] n[facility] 40 mg 4-29 tablet by [facility] of tablet 00:00: mouth 00 daily. Medical Branch pregabalin 2021-0 Yes [id number] 150mg Take 1 [facility] 150 mg 4-29 capsule by it[facility] of capsule 00:00: mouth 3 (three) Medical times Branch daily. busPIRone 2021-0 Yes [id number] 20mg Take 2 [facility] [place] 10 mg 4-29 tablets by [facility] of tablet 00:00: mouth (two) Medical times Branch daily. citalopram 2021-0 Yes [id number] 40mg Take 1 [facility] n[facility] 40 mg 4-29 tablet by it[facility] of tablet 00:00: mouth 00 daily. Medical Branch pregabalin 2021-0 Yes [id number] 150mg Take 1 [facility] 150 mg 4-29 capsule by it[facility] of capsule 00:00: mouth 3 (three) Medical times Branch daily. busPIRone 2021-0 Yes [id number] 20mg Take 2 [facility] [place] 10 mg 4-29 tablets by [facility] of tablet 00:00: mouth (two) Medical times Branch daily. citalopram 2021-0 Yes [id number] 40mg Take 1 [facility] n[facility] 40 mg 4-29 tablet by [facility] of tablet 00:00: mouth 00 daily. Medical Branch pregabalin 2021-0 Yes [id number] 150mg Take 1 [facility] 150 mg 4-29 capsule by it[facility] of capsule 00:00: mouth 3 (three) Medical times Branch daily. busPIRone 2021-0 Yes [id number] 20mg Take 2 [facility] [place] 10 mg 4-29 tablets by it[facility] of tablet 00:00: mouth (two) Medical times Branch daily. citalopram 2021-0 Yes [id number] 40mg Take 1 [facility] n[facility] 40 mg 4-29 tablet by it[facility] of tablet 00:00: mouth daily. Medical Branch pregabalin 2021-0 Yes [id number] 150mg Take 1 [facility] 150 mg 4-29 capsule by it[facility] of capsule 00:00: mouth (three) Medical times Branch daily. busPIRone 2021-0 Yes [id number] 20mg Take 2 [facility] [place] 10 mg 4-29 tablets by [facility] of tablet 00:00: mouth (two) Medical times Branch daily. citalopram 2021-0 Yes [id number] 40mg Take 1 [facility] n[facility] 40 mg 4-29 tablet by it[facility] of tablet 00:00: mouth 00 daily. Medical Branch pregabalin 2021-0 Yes [id number] 150mg Take 1 [facility] 150 mg 4-29 capsule by [facility] of capsule 00:00: mouth 3 (three) Medical times Branch daily. busPIRone 2021-0 Yes [id number] 20mg Take 2 [facility] [place] 10 mg 4-29 tablets by [facility] of tablet 00:00: mouth 2 [place] 00 (two) Medical times Branch daily. citalopram 2021-0 Yes [id number] 40mg Take 1 [facility] n[facility] 40 mg 4-29 tablet by [facility] of tablet 00:00: mouth 00 daily. Medical Branch pregabalin 2021-0 Yes [id number] 150mg Take 1 [facility] 150 mg 4-29 capsule by [facility] of capsule 00:00: mouth 3 (three) Medical times Branch daily. busPIRone 2021-0 Yes [id number] 20mg Take 2 [facility] [place] 10 mg 4-29 tablets by [facility] of tablet 00:00: mouth (two) Medical times Branch daily. citalopram 2021-0 Yes [id number] 40mg Take 1 [facility] n[facility] 40 mg 4-29 tablet by [facility] of tablet 00:00: mouth 00 daily. Medical Branch pregabalin 2021-0 Yes [id number] 150mg Take 1 [facility] 150 mg 4-29 capsule by [facility] of capsule 00:00: mouth (three) Medical times Branch daily. busPIRone 2021-0 Yes [id number] 20mg Take 2 [facility] [place] 10 mg 4-29 tablets by [facility] of tablet 00:00: mouth (two) Medical times Branch daily. citalopram 2021-0 Yes [id number] 40mg Take 1 [facility] n[facility] 40 mg 4-29 tablet by [facility] of tablet 00:00: mouth daily. Medical Branch pregabalin 2021-0 Yes [id number] 150mg Take 1 [facility] 150 mg 4-29 capsule by [facility] of capsule 00:00: mouth (three) Medical times Branch daily. busPIRone 2-0 Yes [id number] 20mg Take 2 [facility] [place] 10 mg 4-29 tablets by [facility] of tablet 00:00: mouth (two) Medical times Branch daily. citalopram 2-0 Yes [id number] 40mg Take 1 [facility] 40 mg 4-29 tablet by [facility] of tablet 00:00: mouth 00 daily. Medical Branch pregabalin 2021-0 Yes [id number] 150mg Take 1 [facility] 150 mg 4-29 capsule by [facility] of capsule 00:00: mouth 3 (three) Medical times Branch daily. busPIRone 2022-0 Yes [id number] 20mg Take 2 [facility] [place] 10 mg 4-29 tablets by it[facility] of tablet 00:00: mouth (two) Medical times Branch daily. citalopram 2021-0 Yes [id number] 40mg Take 1 [facility] n[facility] 40 mg 4-29 tablet by ity of tablet 00:00: mouth 00 daily. Medical Branch pregabalin 2021-0 Yes [id number] 150mg Take 1 [facility] 150 mg 4-29 capsule by [facility] of capsule 00:00: mouth 3 (three) Medical times Branch daily. busPIRone 2021-0 Yes [id number] 20mg Take 2 [facility] [place] 10 mg 4-29 tablets by [facility] of tablet 00:00: mouth (two) Medical times Branch daily. citalopram 2021-0 Yes [id number] 40mg Take 1 [facility] n[facility] 40 mg 4-29 tablet by [facility] of tablet 00:00: mouth daily. Medical Branch pregabalin 2021-0 Yes [id number] 150mg Take 1 [facility] 150 mg 4-29 capsule by [facility] of capsule 00:00: mouth (three) Medical times Branch daily. busPIRone 2021-0 Yes [id number] 20mg Take 2 [facility] [place] 10 mg 4-29 tablets by [facility] of tablet 00:00: mouth (two) Medical times Branch daily. citalopram 2021-0 Yes [id number] 40mg Take 1 [facility] n[facility] 40 mg 4-29 tablet by ity of tablet 00:00: mouth daily. Medical Branch pregabalin 2021-0 Yes [id number] 150mg Take 1 [facility] 150 mg 4-29 capsule by [facility]y of capsule 00:00: mouth 3 (three) Medical times Branch daily. busPIRone 2021-0 Yes [id number] 20mg Take 2 [facility] [place] 10 mg 4-29 tablets by [facility] of tablet 00:00: mouth (two) Medical times Branch daily. citalopram 2021-0 Yes [id number] 40mg Take 1 [facility] n[facility] 40 mg 4-29 tablet by [facility] of tablet 00:00: mouth 00 daily. Medical Branch pregabalin 2021-0 Yes [id number] 150mg Take 1 [facility] 150 mg 4-29 capsule by [facility]y of capsule 00:00: mouth 3 (three) Medical times Branch daily. busPIRone 2021-0 Yes [id number] 20mg Take 2 [facility] [place] 10 mg 4-29 tablets by [facility] of tablet 00:00: mouth (two) Medical times Branch daily. citalopram 2021-0 Yes [id number] 40mg Take 1 [facility] n[facility] 40 mg 4-29 tablet by [facility] of tablet 00:00: mouth 00 daily. Medical Branch pregabalin 2021-0 Yes [id number] 150mg Take 1 [facility] 150 mg 4-29 capsule by [facility]y of capsule 00:00: mouth (three) Medical times Branch daily. busPIRone 2021-0 Yes [id number] 20mg Take 2 [facility] [place] 10 mg 4-29 tablets by [facility] of tablet 00:00: mouth (two) Medical times Branch daily. citalopram 2021-0 Yes [id number] 40mg Take 1 [facility] n[facility] 40 mg 4-29 tablet by [facility] of tablet 00:00: mouth daily. Medical Branch pregabalin 2021-0 Yes [id number] 150mg Take 1 [facility] 150 mg 4-29 capsule by [facility]y of capsule 00:00: mouth (three) Medical times Branch daily. busPIRone 2021-0 Yes [id number] 20mg Take 2 [facility] [place] 10 mg 4-29 tablets by [facility] of tablet 00:00: mouth (two) Medical times Branch daily. citalopram 2021-0 Yes [id number] 40mg Take 1 [facility] n[facility] 40 mg 4-29 tablet by [facility]y of tablet 00:00: mouth daily. Medical Branch pregabalin 2021-0 Yes [id number] 150mg Take 1 [facility] 150 mg 4-29 capsule by ity of capsule 00:00: mouth (three) Medical times Branch daily. busPIRone 2021-0 Yes [id number] 20mg Take 2 [facility] [place] 10 mg 4-29 tablets by [facility] of tablet 00:00: mouth (two) Medical times Branch daily. citalopram 2021-0 Yes [id number] 40mg Take 1 [facility] n[facility] 40 mg 4-29 tablet by [facility]y of tablet 00:00: mouth 00 daily. Medical Branch pregabalin 2021-0 Yes [id number] 150mg Take 1 [facility] 150 mg 4-29 capsule by [facility]y of capsule 00:00: mouth 3 (three) Medical times Branch daily. busPIRone 2021-0 Yes [id number] 20mg Take 2 [facility] [place] 10 mg 4-29 tablets by [facility]y of tablet 00:00: mouth (two) Medical times Branch daily. citalopram 2021-0 Yes [id number] 40mg Take 1 [facility] n[facility] 40 mg 4-29 tablet by ity of tablet 00:00: mouth 00 daily. Medical Branch pregabalin 2021-0 Yes [id number] 150mg Take 1 [facility] 150 mg 4-29 capsule by ity of capsule 00:00: mouth (three) Medical times Branch daily. busPIRone 2021-0 Yes [id number] 20mg Take 2 [facility] [place] 10 mg 4-29 tablets by ity of tablet 00:00: mouth (two) Medical times Branch daily. citalopram 2021-0 Yes [id number] 40mg Take 1 [facility] nivers 40 mg 4-29 tablet by ity of tablet 00:00: mouth daily. Medical Branch pregabalin 2021-0 Yes [id number] 150mg Take 1 [facility] 150 mg 4-29 capsule by ity of capsule 00:00: mouth (three) Medical times Branch daily. busPIRone 2021-0 Yes [id number] 20mg Take 2 [facility] [place] 10 mg 4-29 tablets by ity of tablet 00:00: mouth (two) Medical times Branch daily. citalopram 2021-0 Yes [id number] 40mg Take 1 [facility] nivers 40 mg 4-29 tablet by ity of tablet 00:00: mouth daily. Medical Branch pregabalin 2021-0 Yes [id number] 150mg Take 1 [facility] 150 mg 4-29 capsule by ity of capsule 00:00: mouth 3 (three) Medical times Branch daily. busPIRone 2-0 Yes [id number] 20mg Take 2 [facility] [place] 10 mg 4-29 tablets by ity of tablet 00:00: mouth (two) Medical times Branch daily. citalopram 2021-0 Yes [id number] 40mg Take 1 [facility] nivers 40 mg 4-29 tablet by ity of tablet 00:00: mouth 00 daily. Medical Branch pregabalin 2021-0 Yes [id number] 150mg Take 1 [facility] 150 mg 4-29 capsule by ity of capsule 00:00: mouth (three) Medical times Branch daily. busPIRone 2021-0 Yes [id number] 20mg Take 2 [facility] [place] 10 mg 4-29 tablets by ity of tablet 00:00: mouth (two) Medical times Branch daily. citalopram 2021-0 Yes [id number] 40mg Take 1 [facility] nivers 40 mg 4-29 tablet by ity of tablet 00:00: mouth daily. Medical Branch pregabalin 2021-0 Yes [id number] 150mg Take 1 [facility] 150 mg 4-29 capsule by ity of capsule 00:00: mouth (three) Medical times Branch daily. busPIRone 2021-0 Yes [id number] 20mg Take 2 [facility] [place] 10 mg 4-29 tablets by ity of tablet 00:00: mouth (two) Medical times Branch daily. citalopram 2021-0 Yes [id number] 40mg Take 1 U nivers 40 mg 4-29 tablet by ity of tablet 00:00: mouth daily. Medical Branch pregabalin 2021-0 Yes [id number] 150mg Take 1 [facility] 150 mg 4-29 capsule by ity of capsule 00:00: mouth (three) Medical times Branch daily. busPIRone 2021-0 Yes [id number] 20mg Take 2 [facility] [place] 10 mg 4-29 tablets by ity of tablet 00:00: mouth (two) Medical times Branch daily. citalopram 2021-0 Yes [id number] 40mg Take 1 [facility] nivers 40 mg 4-29 tablet by ity of tablet 00:00: mouth daily. Medical Branch pregabalin 2021-0 Yes [id number] 150mg Take 1 [facility] 150 mg 4-29 capsule by ity of capsule 00:00: mouth (three) Medical times Branch daily. busPIRone 2021-0 Yes [id number] 20mg Take 2 [facility] [place] 10 mg 4-29 tablets by ity of tablet 00:00: mouth (two) Medical times Branch daily. citalopram 2021-0 Yes [id number] 40mg Take 1 [facility] n[facility] 40 mg 4-29 tablet by ity of tablet 00:00: mouth 00 daily. Medical Branch pregabalin 2021-0 Yes [id number] 150mg Take 1 [facility] 150 mg 4-29 capsule by ity of capsule 00:00: mouth 3 (three) Medical times Branch daily. busPIRone 2021-0 Yes [id number] 20mg Take 2 [facility] [place] 10 mg 4-29 tablets by ity of tablet 00:00: mouth (two) Medical times Branch daily. citalopram 2021-0 Yes [id number] 40mg Take 1 [facility] 40 mg 4-29 tablet by [facility] tablet 00:00: mouth 00 daily. [facility] pregabalin 2021-0 Yes [id number] 150mg Take 1 [facility] 150 mg 4-29 capsule by [facility] capsule 00:00: mouth (three) [facility] times [facility] daily. busPIRone 2021-0 Yes [id number] 20mg Take 2 [facility] [place] 10 mg 4-29 tablets by [facility] tablet 00:00: mouth (two) [facility] times [facility] daily. citalopram 2021-0 Yes [id number] 40mg Take 1 [facility] 40 mg 4-29 tablet by [facility] tablet 00:00: mouth daily. [facility] pregabalin 2021-0 Yes [id number] 150mg Take 1 [facility] 150 mg 4-29 capsule by [facility] capsule 00:00: mouth (three) [facility] times [facility] daily. busPIRone 2021-0 Yes [id number] 20mg Take 2 [facility] [place] 10 mg 4-29 tablets by [facility] tablet 00:00: mouth (two) [facility] times [facility] daily. citalopram 2021-0 Yes [id number] 40mg Take 1 [facility] 40 mg 4-29 tablet by [facility] tablet 00:00: mouth 00 daily. [facility] pregabalin 2021-0 Yes [id number] 150mg Take 1 [facility] 150 mg 4-29 capsule by [facility] capsule 00:00: mouth 3 (three) Medical times [facility] daily. busPIRone 2021-0 Yes [id number] 20mg Take 2 [facility] [place] 10 mg 4-29 tablets by [facility] tablet 00:00: mouth 2 (two) Medical times [facility] daily. citalopram 2021-0 Yes [id number] 40mg Take 1 [facility] 40 mg 4-29 tablet by [facility] tablet 00:00: mouth 00 daily. [facility] pregabalin 2021-0 Yes [id number] 150mg Take 1 [facility] 150 mg 4-29 capsule by [facility] capsule 00:00: mouth 3 (three) Medical times [facility] daily. busPIRone 2021-0 Yes [id number] 20mg Take 2 [facility] [place] 10 mg 4-29 tablets by [facility] tablet 00:00: mouth (two) [facility] times [facility] daily. citalopram 2021-0 Yes [id number] 40mg Take 1 [facility] 40 mg 4-29 tablet by [facility] tablet 00:00: mouth 00 daily. [facility] pregabalin 2021-0 Yes [id number] 150mg Take 1 [facility] 150 mg 4-29 capsule by [facility] capsule 00:00: mouth 3 (three) Medical times [facility] daily. busPIRone 2021-0 Yes [id number] 20mg Take 2 [facility] [place] 10 mg 4-29 tablets by [facility] tablet 00:00: mouth (two) [facility] times [facility] daily. citalopram 2021-0 Yes [id number] 40mg Take 1 [facility] 40 mg 4-29 tablet by [facility] tablet 00:00: mouth [place] 00 daily. [facility] citalopram 2021-0 Yes [id number] 40mg Take 1 [facility] 40 mg 4-29 tablet by [facility] tablet 00:00: mouth [place] 00 daily. [facility] citalopram 2021-0 Yes [id number] 40mg Take 1 [facility] 40 mg 4-29 tablet by [facility] tablet 00:00: mouth [place] 00 daily. [facility] citalopram 2021-0 Yes [id number] 40mg Take 1 [facility] 40 mg 4-29 tablet by [facility] tablet 00:00: mouth [place] 00 daily. [facility] citalopram 2021-0 Yes [id number] 40mg Take 1 [facility] 40 mg 4-29 tablet by [facility] tablet 00:00: mouth [place] 00 daily. [facility] citalopram 2021-0 Yes [id number] 40mg Take 1 [facility] 40 mg 4-29 tablet by [facility] tablet 00:00: mouth [place] 00 daily. [facility] citalopram 2021-0 Yes [id number] 40mg Take 1 [facility] 40 mg 4-29 tablet by [facility] tablet 00:00: mouth [place] 00 daily. [facility] citalopram 2021-0 Yes [id number] 40mg Take 1 [facility] 40 mg 4-29 tablet by [facility] tablet 00:00: mouth [place] 00 daily. [facility] pregabalin 2021-0 Yes [id number] 150mg Take 1 [facility] 150 mg 4-29 capsule by [facility] capsule 00:00: mouth 3 00 (three) Medical times [facility] daily. busPIRone 2021-0 Yes [id number] 20mg Take 2 [facility] [place] 10 mg 4-29 tablets by [facility] tablet 00:00: mouth 2 (two) Medical times [facility] daily. citalopram 2021-0 Yes [id number] 40mg Take 1 [facility] 40 mg 4-29 tablet by [facility] tablet 00:00: mouth [place] 00 daily. [facility] pregabalin 2021-0 Yes [id number] 150mg Take 1 [facility] 150 mg 4-29 capsule by [facility] capsule 00:00: mouth 3 (three) Medical times [facility] daily. busPIRone 2021-0 Yes [id number] 20mg Take 2 [facility] [place] 10 mg 4-29 tablets by [facility] tablet 00:00: mouth 2 (two) Medical times [facility] daily. citalopram 2021-0 Yes [id number] 40mg Take 1 [facility] 40 mg 4-29 tablet by [facility] tablet 00:00: mouth [place] 00 daily. [facility] pregabalin 2021-0 Yes [id number] 150mg Take 1 [facility] 150 mg 4-29 capsule by [facility] capsule 00:00: mouth 3 00 (three) Medical times [facility] daily. busPIRone 2021-0 Yes [id number] 20mg Take 2 [facility] [place] 10 mg 4-29 tablets by [facility] tablet 00:00: mouth (two) Medical times [facility] daily. citalopram 2021-0 Yes [id number] 40mg Take 1 [facility] 40 mg 4-29 tablet by [facility] tablet 00:00: mouth 00 daily. [facility] pregabalin 2021-0 Yes [id number] 150mg Take 1 [facility] 150 mg 4-29 capsule by [facility] capsule 00:00: mouth (three) Medical times [facility] daily. busPIRone 2021-0 Yes [id number] 20mg Take 2 [facility] [place] 10 mg 4-29 tablets by [facility] tablet 00:00: mouth (two) [facility] times [facility] daily. citalopram 2021-0 Yes [id number] 40mg Take 1 [facility] 40 mg 4-29 tablet by [facility] tablet 00:00: mouth daily. [facility] pregabalin 2021-0 Yes [id number] 150mg Take 1 [facility] 150 mg 4-29 capsule by [facility] capsule 00:00: mouth (three) Medical times [facility] daily. busPIRone 2021-0 Yes [id number] 20mg Take 2 [facility] [place] 10 mg 4-29 tablets by [facility] tablet 00:00: mouth (two) [facility] times [facility] daily. citalopram 2021-0 Yes [id number] 40mg Take 1 [facility] 40 mg 4-29 tablet by [facility] tablet 00:00: mouth daily. [facility] pregabalin 2021-0 Yes [id number] 150mg Take 1 [facility] 150 mg 4-29 capsule by [facility] capsule 00:00: mouth (three) Medical times [facility] daily. busPIRone 2021-0 Yes [id number] 20mg Take 2 [facility] [place] 10 mg 4-29 tablets by [facility] tablet 00:00: mouth (two) [facility] times [facility] daily. citalopram 2021-0 Yes [id number] 40mg Take 1 [facility] 40 mg 4-29 tablet by [facility] tablet 00:00: mouth 00 daily. [facility] pregabalin 2021-0 Yes [id number] 150mg Take 1 [facility] 150 mg 4-29 capsule by [facility] capsule 00:00: mouth 3 (three) [facility] times [facility] daily. busPIRone 2021-0 Yes [id number] 20mg Take 2 [facility] [place] 10 mg 4-29 tablets by [facility] tablet 00:00: mouth (two) [facility] times [facility] daily. citalopram 2021-0 Yes [id number] 40mg Take 1 [facility] 40 mg 4-29 tablet by [facility] tablet 00:00: mouth daily. [facility] pregabalin 2021-0 Yes [id number] 150mg Take 1 [facility] 150 mg 4-29 capsule by [facility] capsule 00:00: mouth 3 (three) Medical times [facility] daily. busPIRone 2021-0 Yes [id number] 20mg Take 2 [facility] [place] 10 mg 4-29 tablets by [facility] tablet 00:00: mouth (two) Medical times [facility] daily. citalopram 2021-0 Yes [id number] 40mg Take 1 [facility] 40 mg 4-29 tablet by [facility] tablet 00:00: mouth daily. [facility] pregabalin 2021-0 Yes [id number] 150mg Take 1 [facility] 150 mg 4-29 capsule by [facility] capsule 00:00: mouth (three) [facility] times [facility] daily. busPIRone 2021-0 Yes [id number] 20mg Take 2 [facility] [place] 10 mg 4-29 tablets by [facility] tablet 00:00: mouth (two) [facility] times [facility] daily. citalopram 2021-0 Yes [id number] 40mg Take 1 [facility] 40 mg 4-29 tablet by [facility] tablet 00:00: mouth daily. [facility] pregabalin 2021-0 Yes [id number] 150mg Take 1 [facility] 150 mg 4-29 capsule by [facility] capsule 00:00: mouth 3 (three) Medical times [facility] daily. busPIRone 2-0 Yes [id number] 20mg Take 2 [facility] [place] 10 mg 4-29 tablets by [facility] tablet 00:00: mouth (two) Medical times [facility] daily. citalopram 2-0 Yes [id number] 40mg Take 1 [facility] 40 mg 4-29 tablet by [facility] tablet 00:00: mouth 00 daily. [facility] pregabalin 0 Yes [id number] 150mg Take 1 [facility] 150 mg 4-29 capsule by [facility] capsule 00:00: mouth 3 [place] 00 (three) Medical times [facility] daily. busPIRone 2021-0 Yes [id number] 20mg Take 2 [facility] 10 mg 4-29 tablets by [facility] tablet 00:00: mouth 2 [place] 00 (two) Medical times [facility] daily. citalopram 2021-0 Yes [id number] 40mg Take 1 [facility] 40 mg 4-29 tablet by [facility] tablet 00:00: mouth [place] 00 daily. [facility] pregabalin 2021- No [id number] 150mg Take 1 [facility] 150 mg 4-29 10-13 capsule by [facility] capsule 00:00: 00:00 mouth 3 [place] 00 :00 (three) Medical times [facility] daily. busPIRone 2021-2021- No [id number] 20mg Take 2 [facility] 10 mg 4-29 10-13 tablets by [facility] tablet 00:00: 00:00 mouth 2 [place] 00 :00 (two) Medical times [facility] daily. pantoprazol Yes [id number] 40mg Take 1 [facility] e 40 mg EC 4-04 tablet by [facility] of tablet 00:00: mouth [place] 00 daily. [facility] pantoprazol Yes [id number] 40mg Take 1 [facility] e 40 mg EC 4-04 tablet by [facility] of tablet 00:00: mouth [place] 00 daily. [facility] pantoprazol 0 Yes [id number] 40mg Take 1 [facility] e 40 mg EC 4-04 tablet by [facility] of tablet 00:00: mouth [place] 00 daily. [facility] pantoprazol 0 Yes [id number] 40mg Take 1 [facility] e 40 mg EC 4-04 tablet by [facility] of tablet 00:00: mouth [place] 00 daily. [facility] pantoprazol 0 Yes [id number] 40mg Take 1 [facility] e 40 mg EC 4-04 tablet by [facility] of tablet 00:00: mouth [place] 00 daily. [facility] pantoprazol 0 Yes [id number] 40mg Take 1 [facility] e 40 mg EC 4-04 tablet by [facility] of tablet 00:00: mouth [place] 00 daily. [facility] pantoprazol Yes [id number] 40mg Take 1 [facility] e 40 mg EC 4-04 tablet by [facility] of tablet 00:00: mouth [place] 00 daily. [facility] pantoprazol Yes [id number] 40mg Take 1 [facility] e 40 mg EC 4-04 tablet by [facility] of tablet 00:00: mouth [place] 00 daily. [facility] pantoprazol 2021-0 Yes [id number] 40mg Take 1 [facility] e 40 mg EC 4-04 tablet by [facility] of tablet 00:00: mouth [place] 00 daily. [facility] pantoprazol Yes [id number] 40mg Take 1 [facility] e 40 mg EC 4-04 tablet by [facility] of tablet 00:00: mouth [place] 00 daily. [facility] pantoprazol Yes [id number] 40mg Take 1 [facility] e 40 mg EC 4-04 tablet by [facility] of tablet 00:00: mouth [place] 00 daily. [facility] pantoprazol Yes [id number] 40mg Take 1 [facility] e 40 mg EC 4-04 tablet by [facility] of tablet 00:00: mouth [place] 00 daily. [facility] pantoprazol Yes [id number] 40mg Take 1 [facility] e 40 mg EC 4-04 tablet by [facility] of tablet 00:00: mouth [place] 00 daily. [facility] pantoprazol Yes [id number] 40mg Take 1 [facility] e 40 mg EC 4-04 tablet by [facility] of tablet 00:00: mouth [place] 00 daily. [facility] pantoprazol 2021- Yes [id number] 40mg Take 1 [facility] e 40 mg EC 4-04 tablet by [facility] of tablet 00:00: mouth [place] 00 daily. [facility] pantoprazol 2021-0 Yes [id number] 40mg Take 1 [facility] e 40 mg EC 4-04 tablet by [facility] of tablet 00:00: mouth [place] 00 daily. [facility] pantoprazol 2021- Yes [id number] 40mg Take 1 [facility] e 40 mg EC 4-04 tablet by [facility] of tablet 00:00: mouth [place] 00 daily. [facility] pantoprazol 2021- Yes [id number] 40mg Take 1 [facility] e 40 mg EC 4-04 tablet by [facility] of tablet 00:00: mouth [place] 00 daily. [facility] pantoprazol 2021-0 Yes [id number] 40mg Take 1 [facility] e 40 mg EC 4-04 tablet by [facility] of tablet 00:00: mouth [place] 00 daily. [facility] pantoprazol 0 Yes [id number] 40mg Take 1 [facility] e 40 mg EC 4-04 tablet by [facility] of tablet 00:00: mouth [place] 00 daily. [facility] pantoprazol 0 Yes [id number] 40mg Take 1 [facility] e 40 mg EC 4-04 tablet by [facility] of tablet 00:00: mouth [place] 00 daily. [facility] pantoprazol 0 Yes [id number] 40mg Take 1 [facility] e 40 mg EC 4-04 tablet by [facility] of tablet 00:00: mouth [place] 00 daily. [facility] pantoprazol 0 Yes [id number] 40mg Take 1 [facility] e 40 mg EC 4-04 tablet by [facility] of tablet 00:00: mouth [place] 00 daily. [facility] pantoprazol 0 Yes [id number] 40mg Take 1 [facility] e 40 mg EC 4-04 tablet by [facility] of tablet 00:00: mouth [place] 00 daily. [facility] pantoprazol Yes [id number] 40mg Take 1 [facility] e 40 mg EC 4-04 tablet by [facility] of tablet 00:00: mouth [place] 00 daily. [facility] pantoprazol 0 Yes [id number] 40mg Take 1 [facility] e 40 mg EC 4-04 tablet by [facility] of tablet 00:00: mouth [place] 00 daily. [facility] pantoprazol 0 Yes [id number] 40mg Take 1 [facility] e 40 mg EC 4-04 tablet by [facility] of tablet 00:00: mouth [place] 00 daily. [facility] pantoprazol 2021-0 Yes [id number] 40mg Take 1 [facility] e 40 mg EC 4-04 tablet by [facility] of tablet 00:00: mouth [place] 00 daily. [facility] pantoprazol 0 Yes [id number] 40mg Take 1 [facility] e 40 mg EC 4-04 tablet by [facility] of tablet 00:00: mouth [place] 00 daily. [facility] pantoprazol 0 Yes [id number] 40mg Take 1 [facility] e 40 mg EC 4-04 tablet by [facility] of tablet 00:00: mouth [place] 00 daily. [facility] pantoprazol 0 2021- No [id number] 40mg Take 1 [facility] e 40 mg EC 12-28 tablet by [facility] of tablet 00:00: 00:00 mouth [place] 00 :00 daily. [facility] pantoprazol 2021-0 2022- No [id number] 40mg Take 1 [facility] e 40 mg EC 12-28 tablet by [facility] of tablet 00:00: 00:00 mouth [place] 00 :00 daily. [facility] Blood-Gluco 2-0 Yes [id number] Use twice [facility] se Meter 3-08 a day for ity of (ONETOUCH 00:00: ICD CODE [place] VERIO FLEX E11.65 Medical START) [facility] Blood-Gluco 2-0 Yes [id number] Use twice [facility] se Meter 3-08 a day for it[facility] of (ONETOUCH 00:00: ICD CODE [place] VERIO FLEX E11.65 Medical START) Kit [facility] Blood-Gluco 2-0 Yes [id number] Use twice [facility] se Meter 3-08 a day for ity of (ONETOUCH 00:00: ICD CODE [place] VERIO FLEX E11.65 Medical START) Kit [facility] Blood-Gluco 2-0 Yes [id number] Use twice [facility] se Meter 3-08 a day for ity of (ONETOUCH 00:00: ICD CODE [place] VERIO FLEX E11.65 Medical START) Kit [facility] Blood-Gluco 2-0 Yes [id number] Use twice [facility] se Meter 3-08 a day for ity of (ONETOUCH 00:00: ICD CODE [place] VERIO FLEX E11.65 Medical START) Kit [facility] Blood-Gluco 2-0 Yes [id number] Use twice [facility] se Meter 3-08 a day for ity of (ONETOUCH 00:00: ICD CODE [place] VERIO FLEX E11.65 Medical START) Kit [facility] Blood-Gluco 2-0 Yes [id number] Use twice [facility] se Meter 3-08 a day for ity of (ONETOUCH 00:00: ICD CODE [place] VERIO FLEX E11.65 Medical START) Kit [facility] Blood-Gluco 2-0 Yes [id number] Use twice [facility] se Meter 3-08 a day for ity of (ONETOUCH 00:00: ICD CODE [place] VERIO FLEX E11.65 Medical START) Kit [facility] Blood-Gluco 2022-0 Yes [id number] Use twice [facility] se M[facility] 3-08 a day for ity of (ONETOUCH 00:00: ICD CODE [place] VERIO FLEX 65 Medical START) Kit [facility] Blood-Gluco 2022-0 Yes [id number] Use twice [facility] se [facility] 3-08 a day for ity of (ONETOUCH 00:00: ICD CODE [place] VERIO FLEX Medical START) [facility] Blood-Gluco 2022-0 Yes [id number] Use twice [facility] se [facility] 3-08 a day for ity of (ONETOUCH 00:00: ICD CODE [place] VERIO FLEX Medical START) [facility] Blood-Gluco 2022-0 Yes [id number] Use twice [facility] se M[facility] 3-08 a day for ity of (ONETOUCH 00:00: ICD CODE [place] VERIO FLEX Medical START) [facility] Blood-Gluco 2022-0 Yes [id number] Use twice [facility] se [facility] 3-08 a day for ity of (ONETOUCH 00:00: ICD CODE [place] VERIO FLEX Medical START) [facility] Blood-Gluco 2022-0 Yes [id number] Use twice [facility] se [facility] 3-08 a day for ity of (ONETOUCH 00:00: ICD CODE [place] VERIO FLEX Medical START) Kit [facility] Blood-Gluco 2022-0 Yes [id number] Use twice [facility] se M[facility] 3-08 a day for ity of (ONETOUCH 00:00: ICD CODE [place] VERIO FLEX Medical START) [facility] Blood-Gluco 2022-0 Yes [id number] Use twice [facility] se [facility] 3-08 a day for ity of (ONETOUCH 00:00: ICD CODE [place] VERIO FLEX 65 Medical START) Kit [facility] Blood-Gluco 2022-0 Yes [id number] Use twice [facility] se M[facility] 3-08 a day for ity of (ONETOUCH 00:00: ICD CODE [place] VERIO FLEX 65 Medical START) Kit [facility] Blood-Gluco 2022-0 Yes [id number] Use twice [facility] se M[facility] 3-08 a day for ity of (ONETOUCH 00:00: ICD CODE [place] VERIO FLEX Medical START) Kit [facility] Blood-Gluco 2022-0 Yes [id number] Use twice [facility] se [facility] 3-08 a day for ity of (ONETOUCH 00:00: ICD CODE [place] VERIO FLEX Medical START) Kit [facility] Blood-Gluco 2022-0 Yes [id number] Use twice [facility] 3-08 a day for ity of (ONETOUCH 00:00: ICD CODE [place] VERIO FLEX Medical START) Kit [facility] Blood-Gluco 2022-0 Yes [id number] Use twice [facility] se M[facility] 3-08 a day for ity of (ONETOUCH 00:00: ICD CODE [place] VERIO FLEX Medical START) Kit [facility] Blood-Gluco 2022-0 Yes [id number] Use twice [facility] se M[facility] 3-08 a day for ity of (ONETOUCH 00:00: ICD CODE [place] VERIO FLEX Medical START) Kit [facility] Blood-Gluco 2022-0 Yes [id number] Use twice [facility] se M[facility] 3-08 a day for ity of (ONETOUCH 00:00: ICD CODE [place] VERIO FLEX Medical START) [facility] Blood-Gluco 2022-0 Yes [id number] Use twice [facility] se [facility] 3-08 a day for ity of (ONETOUCH 00:00: ICD CODE [place] VERIO FLEX Medical START) [facility] Blood-Gluco 2022-0 Yes [id number] Use twice [facility] se [facility] 3-08 a day for ity of (ONETOUCH 00:00: ICD CODE [place] VERIO FLEX Medical START) Kit [facility] Blood-Gluco 2022-0 Yes [id number] Use twice [facility] se [facility] 3-08 a day for ity of (ONETOUCH 00:00: ICD CODE [place] VERIO FLEX Medical START) [facility] Blood-Gluco 2022-0 Yes [id number] Use twice [facility] se M[facility] 3-08 a day for ity of (ONETOUCH 00:00: ICD CODE [place] VERIO FLEX Medical START) [facility] Blood-Gluco 2022-0 Yes [id number] Use twice [facility] se [facility] 3-08 a day for ity of (ONETOUCH 00:00: ICD CODE [place] VERIO FLEX E11.65 Medical START) Kit [facility] Blood-Gluco 2022-0 Yes [id number] Use twice [facility] se M[facility] 3-08 a day for ity of (ONETOUCH 00:00: ICD CODE [place] VERIO FLEX E11.65 Medical START) Kit [facility] Blood-Gluco 2022-0 Yes [id number] Use twice [facility] se M[facility] 3-08 a day for ity of (ONETOUCH 00:00: ICD CODE [place] VERIO FLEX E11.65 Medical START) Kit [facility] Blood-Gluco 2022-0 Yes [id number] Use twice [facility] se M[facility] 3-08 a day for ity of (ONETOUCH 00:00: ICD CODE [place] VERIO FLEX E11.65 Medical START) Kit [facility] Blood-Gluco 2022-0 Yes [id number] Use twice [facility] se M[facility] 3-08 a day for ity of (ONETOUCH 00:00: ICD CODE [place] VERIO FLEX E11.65 Medical START) Kit [facility] Blood-Gluco 2022-0 Yes [id number] Use twice [facility] se M[facility] 3-08 a day for ity of (ONETOUCH 00:00: ICD CODE [place] VERIO FLEX E11.65 Medical START) [facility] Blood-Gluco 2022-0 Yes [id number] Use twice [facility] se M[facility] 3-08 a day for ity of (ONETOUCH 00:00: ICD CODE [place] VERIO FLEX E11.65 Medical START) Kit [facility] Blood-Gluco 2022-0 Yes [id number] Use twice [facility] se M[facility] 3-08 a day for ity of (ONETOUCH 00:00: ICD CODE [place] VERIO FLEX E11.65 Medical START) Kit [facility] Blood-Gluco 2022-0 Yes [id number] Use twice [facility] se M[facility] 3-08 a day for ity of (ONETOUCH 00:00: ICD CODE [place] VERIO FLEX E11.65 Medical START) Kit [facility] Blood-Gluco 2022-0 2022- No [id number] Use twice [facility] se [facility] 3-08 09-22 a day for ity o f (ONETOUCH 00:00: 00:00 ICD CODE [place] VERIO FLEX 00 :00 E11.65 Medical START) [facility] Blood-Gluco 0 2021- No [id number] Use twice [facility] se Meter 3-06-17 a day for ity o f (ONETOUCH 00:00: 00:00 ICD CODE [place] VERIO FLEX 00 :00 E11.65 Medical START) [facility] Blood-Gluco 0 2021- No [id number] Use twice [facility] se Meter 306-17 a day for ity o f (ONETOUCH 00:00: 00:00 ICD CODE [place] VERIO FLEX 00 :00 E11.65 Medical START) [facility] mirabegron 0 Yes [id number] 50mg Take 1 [facility] (MYRBETRIQ) 1-18 tablet by ity of 50 mg 00:00: mouth [place] tablet 00 daily. [facility] mirabegron 0 Yes [id number] 50mg Take 1 [facility] (MYRBETRIQ) 1-18 tablet by ity of 50 mg 00:00: mouth [place] tablet 00 daily. [facility] mirabegron 0 Yes [id number] 50mg Take 1 [facility] (MYRBETRIQ) 1-18 tablet by ity of 50 mg 00:00: mouth [place] tablet 00 daily. [facility] mirabegron 0 Yes [id number] 50mg Take 1 [facility] (MYRBETRIQ) 1-18 tablet by ity of 50 mg 00:00: mouth [place] tablet 00 daily. [facility] mirabegron 0 Yes [id number] 50mg Take 1 [facility] (MYRBETRIQ) 1-18 tablet by ity of 50 mg 00:00: mouth [place] tablet 00 daily. [facility] mirabegron 0 Yes [id number] 50mg Take 1 [facility] (MYRBETRIQ) 1-18 tablet by ity of 50 mg 00:00: mouth [place] tablet 00 daily. [facility] mirabegron 0 Yes [id number] 50mg Take 1 [facility] (MYRBETRIQ) 1-18 tablet by ity of 50 mg 00:00: mouth [place] tablet 00 daily. [facility] mirabegron 0 Yes [id number] 50mg Take 1 [facility] (MYRBETRIQ) 1-18 tablet by ity of 50 mg 00:00: mouth [place] tablet 00 daily. [facility] mirabegron 2021-0 Yes [id number] 50mg Take 1 [facility] (MYRBETRIQ) 1-18 tablet by ity of 50 mg 00:00: mouth [place] tablet 00 daily. [facility] mirabegron 2021-0 Yes [id number] 50mg Take 1 [facility] (MYRBETRIQ) 1-18 tablet by ity of 50 mg 00:00: mouth [place] tablet 00 daily. [facility] mirabegron 0 Yes [id number] 50mg Take 1 [facility] (MYRBETRIQ) 1-18 tablet by ity of 50 mg 00:00: mouth [place] tablet 00 daily. [facility] mirabegron 0 Yes [id number] 50mg Take 1 [facility] (MYRBETRIQ) 1-18 tablet by ity of 50 mg 00:00: mouth [place] tablet 00 daily. [facility] mirabegron 0 Yes [id number] 50mg Take 1 [facility] (MYRBETRIQ) 1-18 tablet by ity of 50 mg 00:00: mouth [place] tablet 00 daily. [facility] mirabegron 0 Yes [id number] 50mg Take 1 [facility] (MYRBETRIQ) 1-18 tablet by ity of 50 mg 00:00: mouth [place] tablet 00 daily. [facility] mirabegron 0 Yes [id number] 50mg Take 1 [facility] (MYRBETRIQ) 1-18 tablet by ity of 50 mg 00:00: mouth [place] tablet 00 daily. [facility] mirabegron 2021-0 Yes [id number] 50mg Take 1 [facility] (MYRBETRIQ) 1-18 tablet by ity of 50 mg 00:00: mouth [place] tablet 00 daily. [facility] mirabegron 2021-0 Yes [id number] 50mg Take 1 [facility] (MYRBETRIQ) 1-18 tablet by ity of 50 mg 00:00: mouth [place] tablet 00 daily. [facility] mirabegron 2021-0 Yes [id number] 50mg Take 1 [facility] (MYRBETRIQ) 1-18 tablet by ity of 50 mg 00:00: mouth [place] tablet 00 daily. [facility] mirabegron 2021-0 Yes [id number] 50mg Take 1 [facility] (MYRBETRIQ) 1-18 tablet by ity of 50 mg 00:00: mouth [place] tablet 00 daily. [facility] mirabegron 2021-0 Yes [id number] 50mg Take 1 [facility] (MYRBETRIQ) 1-18 tablet by ity of 50 mg 00:00: mouth [place] tablet 00 daily. [facility] mirabegron 2021-0 Yes [id number] 50mg Take 1 [facility] (MYRBETRIQ) 1-18 tablet by ity of 50 mg 00:00: mouth [place] tablet 00 daily. [facility] mirabegron 2021-0 Yes [id number] 50mg Take 1 [facility] (MYRBETRIQ) 1-18 tablet by ity of 50 mg 00:00: mouth [place] tablet 00 daily. [facility] mirabegron 0 Yes [id number] 50mg Take 1 [facility] (MYRBETRIQ) 1-18 tablet by ity of 50 mg 00:00: mouth [place] tablet 00 daily. [facility] mirabegron 0 Yes [id number] 50mg Take 1 [facility] (MYRBETRIQ) 1-18 tablet by ity of 50 mg 00:00: mouth [place] tablet 00 daily. [facility] mirabegron 0 Yes [id number] 50mg Take 1 [facility] (MYRBETRIQ) 1-18 tablet by ity of 50 mg 00:00: mouth [place] tablet 00 daily. [facility] mirabegron 0 Yes [id number] 50mg Take 1 [facility] (MYRBETRIQ) 1-18 tablet by ity of 50 mg 00:00: mouth [place] tablet 00 daily. [facility] mirabegron 0 Yes [id number] 50mg Take 1 [facility] (MYRBETRIQ) 1-18 tablet by ity of 50 mg 00:00: mouth [place] tablet 00 daily. [facility] mirabegron 0 Yes [id number] 50mg Take 1 [facility] (MYRBETRIQ) 1-18 tablet by ity of 50 mg 00:00: mouth [place] tablet 00 daily. [facility] mirabegron 0 Yes [id number] 50mg Take 1 [facility] (MYRBETRIQ) 1-18 tablet by ity of 50 mg 00:00: mouth [place] tablet 00 daily. [facility] mirabegron 2021-0 Yes [id number] 50mg Take 1 [facility] (MYRBETRIQ) 1-18 tablet by ity of 50 mg 00:00: mouth [place] tablet 00 daily. [facility] mirabegron 0 Yes [id number] 50mg Take 1 [facility] (MYRBETRIQ) 1-18 tablet by ity of 50 mg 00:00: mouth [place] tablet 00 daily. [facility] mirabegron 0 Yes [id number] 50mg Take 1 [facility] (MYRBETRIQ) 1-18 tablet by ity of 50 mg 00:00: mouth [place] tablet 00 daily. [facility] mirabegron 0 Yes [id number] 50mg Take 1 [facility] (MYRBETRIQ) 1-18 tablet by ity of 50 mg 00:00: mouth [place] tablet 00 daily. [facility] mirabegron 0 Yes [id number] 50mg Take 1 [facility] (MYRBETRIQ) 1-18 tablet by ity of 50 mg 00:00: mouth [place] tablet 00 daily. [facility] mirabegron 0 Yes [id number] 50mg Take 1 [facility] (MYRBETRIQ) 1-18 tablet by ity of 50 mg 00:00: mouth [place] tablet 00 daily. [facility] mirabegron 0 Yes [id number] 50mg Take 1 [facility] (MYRBETRIQ) 1-18 tablet by ity of 50 mg 00:00: mouth [place] tablet 00 daily. [facility] mirabegron 0 Yes [id number] 50mg Take 1 [facility] (MYRBETRIQ) 1-18 tablet by ity of 50 mg 00:00: mouth [place] tablet 00 daily. [facility] mirabegron 0 Yes [id number] 50mg Take 1 [facility] (MYRBETRIQ) 1-18 tablet by ity of 50 mg 00:00: mouth [place] tablet 00 daily. [facility] mirabegron 0 Yes [id number] 50mg Take 1 [facility] (MYRBETRIQ) 1-18 tablet by ity of 50 mg 00:00: mouth [place] tablet 00 daily. [facility] mirabegron 0 Yes [id number] 50mg Take 1 [facility] (MYRBETRIQ) 1-18 tablet by ity of 50 mg 00:00: mouth [place] tablet 00 daily. [facility] mirabegron 0 Yes [id number] 50mg Take 1 [facility] (MYRBETRIQ) 1-18 tablet by ity of 50 mg 00:00: mouth [place] tablet 00 daily. [facility] mirabegron 0 Yes [id number] 50mg Take 1 [facility] (MYRBETRIQ) 1-18 tablet by ity of 50 mg 00:00: mouth [place] tablet 00 daily. [facility] mirabegron 0 Yes [id number] 50mg Take 1 [facility] (MYRBETRIQ) 1-18 tablet by ity of 50 mg 00:00: mouth [place] tablet 00 daily. [facility] mirabegron 0 Yes [id number] 50mg Take 1 [facility] (MYRBETRIQ) 1-18 tablet by ity of 50 mg 00:00: mouth [place] tablet 00 daily. [facility] mirabegron Yes [id number] 50mg Take 1 [facility] (MYRBETRIQ) 1-18 tablet by ity of 50 mg 00:00: mouth [place] tablet 00 daily. [facility] mirabegron 0 Yes [id number] 50mg Take 1 [facility] (MYRBETRIQ) 1-18 tablet by ity of 50 mg 00:00: mouth [place] tablet 00 daily. [facility] mirabegron Yes [id number] 50mg Take 1 [facility] (MYRBETRIQ) 1-18 tablet by ity of 50 mg 00:00: mouth [place] tablet 00 daily. [facility] mirabegron Yes [id number] 50mg Take 1 [facility] (MYRBETRIQ) 1-18 tablet by ity of 50 mg 00:00: mouth [place] tablet 00 daily. [facility] mirabegron 2021- No [id number] 50mg Take 1 [facility] (MYRBETRIQ) 1-18 10-13 tablet by it y of 50 mg 00:00: 00:00 mouth [place] tablet 00 :00 daily. [facility] semaglutide 2020-09 Yes [id number] Inject [facility] (OZEMPIC) 2-01 0.25 mg ity of 0.25 mg or 00:00: under the [place] 0.5 mg(2 00 skin Medical mg/1.5 mL) weekly. Branch PnIj semaglutide 2020-09 Yes [id number] Inject [facility] (OZEMPIC) 2-01 0.25 mg ity of 0.25 mg or 00:00: under the [place] 0.5 mg(2 00 skin Medical mg/1.5 mL) weekly. Branch PnIj semaglutide 2020-09 Yes [id number] Inject [facility] (OZEMPIC) 2-01 0.25 mg ity of 0.25 mg or 00:00: under the [place] 0.5 mg(2 00 skin Medical mg/1.5 mL) weekly. Branch PnIj semaglutide 2020-09 Yes [id number] Inject [facility] (OZEMPIC) 2-01 0.25 mg ity of 0.25 mg or 00:00: under the [place] 0.5 mg(2 00 skin Medical mg/1.5 mL) weekly. Branch PnIj semaglutide 2020-09 Yes [id number] Inject [facility] (OZEMPIC) 2-01 0.25 mg ity of 0.25 mg or 00:00: under the [place] 0.5 mg(2 00 skin Medical mg/1.5 mL) weekly. Branch PnIj semaglutide 2020-09 Yes [id number] Inject [facility] (OZEMPIC) 2-01 0.25 mg ity of 0.25 mg or 00:00: under the [place] 0.5 mg(2 00 skin Medical mg/1.5 mL) weekly. Branch PnIj semaglutide 2020-09 Yes [id number] Inject [facility] (OZEMPIC) 2-01 0.25 mg ity of 0.25 mg or 00:00: under the [place] 0.5 mg(2 00 skin Medical mg/1.5 mL) weekly. Branch PnIj semaglutide 2020-09 Yes [id number] Inject [facility] (OZEMPIC) 2-01 0.25 mg ity of 0.25 mg or 00:00: under the [place] 0.5 mg(2 00 skin Medical mg/1.5 mL) weekly. Branch PnIj semaglutide 2020-09 Yes [id number] Inject [facility] (OZEMPIC) 2-01 0.25 mg ity of 0.25 mg or 00:00: under the [place] 0.5 mg(2 00 skin Medical mg/1.5 mL) weekly. Branch PnIj semaglutide 2020-09 Yes [id number] Inject [facility] (OZEMPIC) 2-01 0.25 mg ity of 0.25 mg or 00:00: under the [place] 0.5 mg(2 00 skin Medical mg/1.5 mL) weekly. Branch PnIj semaglutide 2020-09 Yes [id number] Inject [facility] (OZEMPIC) 2-01 0.25 mg ity of 0.25 mg or 00:00: under the [place] 0.5 mg(2 00 skin Medical mg/1.5 mL) weekly. Branch PnIj semaglutide 2020-09 Yes [id number] Inject [facility] (OZEMPIC) 2-01 0.25 mg ity of 0.25 mg or 00:00: under the [place] 0.5 mg(2 00 skin Medical mg/1.5 mL) weekly. Branch PnIj semaglutide 2020-09 Yes [id number] Inject [facility] (OZEMPIC) 2-01 0.25 mg ity of 0.25 mg or 00:00: under the [place] 0.5 mg(2 00 skin Medical mg/1.5 mL) weekly. Branch PnIj semaglutide 2020-09 Yes [id number] Inject [facility] (OZEMPIC) 2-01 0.25 mg ity of 0.25 mg or 00:00: under the [place] 0.5 mg(2 00 skin Medical mg/1.5 mL) weekly. Branch PnIj semaglutide 2020-09 Yes [id number] Inject [facility] (OZEMPIC) 2-01 0.25 mg ity of 0.25 mg or 00:00: under the [place] 0.5 mg(2 00 skin Medical mg/1.5 mL) weekly. Branch PnIj semaglutide 2020-09 Yes [id number] Inject [facility] (OZEMPIC) 2-01 0.25 mg ity of 0.25 mg or 00:00: under the [place] 0.5 mg(2 00 skin Medical mg/1.5 mL) weekly. Branch PnIj semaglutide 2020-09 Yes [id number] Inject [facility] (OZEMPIC) 2-01 0.25 mg ity of 0.25 mg or 00:00: under the [place] 0.5 mg(2 00 skin Medical mg/1.5 mL) weekly. Branch PnIj semaglutide 2020-09 Yes [id number] Inject [facility] (OZEMPIC) 2-01 0.25 mg ity of 0.25 mg or 00:00: under the [place] 0.5 mg(2 00 skin Medical mg/1.5 mL) weekly. Branch PnIj semaglutide 2020-09 Yes [id number] Inject [facility] (OZEMPIC) 2-01 0.25 mg ity of 0.25 mg or 00:00: under the [place] 0.5 mg(2 00 skin Medical mg/1.5 mL) weekly. Branch PnIj semaglutide 2020-09 Yes [id number] Inject [facility] (OZEMPIC) 2-01 0.25 mg ity of 0.25 mg or 00:00: under the [place] 0.5 mg(2 00 skin Medical mg/1.5 mL) weekly. Branch PnIj semaglutide 2020-09 Yes [id number] Inject [facility] (OZEMPIC) 2-01 0.25 mg ity of 0.25 mg or 00:00: under the [place] 0.5 mg(2 00 skin Medical mg/1.5 mL) weekly. Branch PnIj semaglutide 2020-09 Yes [id number] Inject [facility] (OZEMPIC) 2-01 0.25 mg ity of 0.25 mg or 00:00: under the [place] 0.5 mg(2 00 skin Medical mg/1.5 mL) weekly. Branch PnIj semaglutide 2020-09 Yes [id number] Inject [facility] (OZEMPIC) 2-01 0.25 mg ity of 0.25 mg or 00:00: under the [place] 0.5 mg(2 00 skin Medical mg/1.5 mL) weekly. Branch PnIj semaglutide 2020-09 Yes [id number] Inject [facility] (OZEMPIC) 2-01 0.25 mg ity of 0.25 mg or 00:00: under the [place] 0.5 mg(2 00 skin Medical mg/1.5 mL) weekly. Branch PnIj semaglutide 2020-09 Yes [id number] Inject [facility] (OZEMPIC) 2-01 0.25 mg ity of 0.25 mg or 00:00: under the [place] 0.5 mg(2 00 skin Medical mg/1.5 mL) weekly. Branch PnIj semaglutide 2020-09 Yes [id number] Inject [facility] (OZEMPIC) 2-01 0.25 mg ity of 0.25 mg or 00:00: under the [place] 0.5 mg(2 00 skin Medical mg/1.5 mL) weekly. Branch PnIj semaglutide 2020-09 Yes [id number] Inject [facility] (OZEMPIC) 2-01 0.25 mg ity of 0.25 mg or 00:00: under the [place] 0.5 mg(2 00 skin Medical mg/1.5 mL) weekly. Branch PnIj semaglutide 2020-09 Yes [id number] Inject [facility] (OZEMPIC) 2-01 0.25 mg ity of 0.25 mg or 00:00: under the [place] 0.5 mg(2 00 skin Medical mg/1.5 mL) weekly. Branch PnIj semaglutide 2020-09 Yes [id number] Inject [facility] (OZEMPIC) 2-01 0.25 mg ity of 0.25 mg or 00:00: under the [place] 0.5 mg(2 00 skin Medical mg/1.5 mL) weekly. Branch PnIj semaglutide 2020-09 Yes [id number] Inject [facility] (OZEMPIC) 2-01 0.25 mg ity of 0.25 mg or 00:00: under the [place] 0.5 mg(2 00 skin Medical mg/1.5 mL) weekly. Branch PnIj semaglutide 2020-09 Yes [id number] Inject [facility] (OZEMPIC) 2-01 0.25 mg ity of 0.25 mg or 00:00: under the [place] 0.5 mg(2 00 skin Medical mg/1.5 mL) weekly. Branch PnIj semaglutide 2020-09 Yes [id number] Inject [facility] (OZEMPIC) 2-01 0.25 mg ity of 0.25 mg or 00:00: under the [place] 0.5 mg(2 00 skin Medical mg/1.5 mL) weekly. Branch PnIj semaglutide 2020-09 Yes [id number] Inject [facility] (OZEMPIC) 2-01 0.25 mg ity of 0.25 mg or 00:00: under the [place] 0.5 mg(2 00 skin Medical mg/1.5 mL) weekly. Branch PnIj semaglutide 2020-09 Yes [id number] Inject [facility] (OZEMPIC) 2-01 0.25 mg ity of 0.25 mg or 00:00: under the [place] 0.5 mg(2 00 skin Medical mg/1.5 mL) weekly. Branch PnIj semaglutide 2020-09 Yes [id number] Inject [facility] (OZEMPIC) 2-01 0.25 mg ity of 0.25 mg or 00:00: under the [place] 0.5 mg(2 00 skin Medical mg/1.5 mL) weekly. Branch PnIj semaglutide 2020-09 Yes [id number] Inject [facility] (OZEMPIC) 2-01 0.25 mg ity of 0.25 mg or 00:00: under the [place] 0.5 mg(2 00 skin Medical mg/1.5 mL) weekly. Branch PnIj semaglutide 2020-09 Yes [id number] Inject [facility] (OZEMPIC) 2-01 0.25 mg ity of 0.25 mg or 00:00: under the [place] 0.5 mg(2 00 skin Medical mg/1.5 mL) weekly. Branch PnIj semaglutide 2020-09 Yes [id number] Inject [facility] (OZEMPIC) 2-01 0.25 mg ity of 0.25 mg or 00:00: under the [place] 0.5 mg(2 00 skin Medical mg/1.5 mL) weekly. Branch PnIj semaglutide 2020-09 Yes [id number] Inject [facility] (OZEMPIC) 2-01 0.25 mg ity of 0.25 mg or 00:00: under the [place] 0.5 mg(2 00 skin Medical mg/1.5 mL) weekly. Branch PnIj semaglutide 2020-09 Yes [id number] Inject [facility] (OZEMPIC) 2-01 0.25 mg ity of 0.25 mg or 00:00: under the [place] 0.5 mg(2 00 skin Medical mg/1.5 mL) weekly. Branch PnIj semaglutide 2020-09 Yes [id number] Inject [facility] (OZEMPIC) 2-01 0.25 mg ity of 0.25 mg or 00:00: under the [place] 0.5 mg(2 00 skin Medical mg/1.5 mL) weekly. Branch RyIj semaglutide 2020-09 Yes [id number] Inject [facility] (OZEMPIC) 2-01 0.25 mg ity of 0.25 mg or 00:00: under the [place] 0.5 mg(2 00 skin Medical mg/1.5 mL) weekly. Branch PnIj semaglutide 2020-09 Yes [id number] Inject [facility] (OZEMPIC) 2-01 0.25 mg ity of 0.25 mg or 00:00: under the [place] 0.5 mg(2 00 skin Medical mg/1.5 mL) weekly. Branch RyI[place] semaglutide 2020-09 Yes [id number] Inject [facility] (OZEMPIC) 2-01 0.25 mg ity of 0.25 mg or 00:00: under the [place] 0.5 mg(2 00 skin Medical mg/1.5 mL) weekly. Branch [place] semaglutide 2020-09 Yes [id number] Inject [facility] (OZEMPIC) 2-01 0.25 mg ity of 0.25 mg or 00:00: under the [place] 0.5 mg(2 00 skin Medical mg/1.5 mL) weekly. Branch RyIj semaglutide 2020-09 Yes [id number] Inject [facility] (OZEMPIC) 2-01 0.25 mg ity of 0.25 mg or 00:00: under the [place] 0.5 mg(2 00 skin Medical mg/1.5 mL) weekly. Branch yRIj semaglutide 2020-09 Yes [id number] Inject [facility] (OZEMPIC) 2-01 0.25 mg ity of 0.25 mg or 00:00: under the [place] 0.5 mg(2 00 skin Medical mg/1.5 mL) weekly. Branch RyIj semaglutide 2020-09 Yes [id number] Inject [facility] (OZEMPIC) 2-01 0.25 mg ity of 0.25 mg or 00:00: under the [place] 0.5 mg(2 00 skin Medical mg/1.5 mL) weekly. Branch RyIj semaglutide 2020-09 [id number] Inject [facility] (OZEMPIC) 10-27 0.25 mg ity of 0.25 mg or 00:00: 00:00 under the [place] 0.5 mg(2 00 :00 skin Medical mg/1.5 mL) weekly. Branch PnIj metformin 2020-09- No [id number] 500mg Take 1 [facility] ER 500 mg 10-27 tablet by ity of 24 hr 00:00: 00:00 mouth [place] tablet 00 :00 daily with Medical breakfast. Branch STOP REGULAR METFORMIN. metformin 2020-09- No [id number] 500mg Take 1 [facility] ER 500 mg 10-27 tablet by ity of 24 hr 00:00: 00:00 mouth [place] tablet 00 :00 daily with Medical breakfast. Branch STOP REGULAR METFORMIN. cyanocobala 2020-09 Yes [id number] 1000ug 1 mL by [facility] min 1,000 1-09 Intramuscu ity of mcg/mL 00:00: lar route [place] injection 00 every 2 Medical (two) Branch weeks. levothyroxi 2020-09 Yes [id number] 50ug Take 1 [facility] ne 50 mcg -09 tablet by ity o f tablet 00:00: mouth [place] 00 every Medical morning. Branch fluticasone 2020-09 Yes [id number] 2{puff} Inhale 2 [facility] propionate 1-09 Puffs ity of (FLOVENT 00:00: every 12 [place] HFA) 110 00 (twelve) Medical mcg/actuati hours. Branch on inhaler Rinse mouth after each use. levalbutero 2020-09 Yes [id number] .63mg Inhale [facility] l 0.63 mg/3 1-09 0.63 mg 3 ity of mL 00:00: (three) [place] nebulizer 00 times Medical solution daily as Branch needed for Wheezing or Shortness of Breath. losartan 50 2020-09 Yes [id number] 50mg Take 1 [facility] mg tablet 1-09 tablet by ity o f 00:00: mouth 2 [place] 00 (two) Medical times Branch daily. clotrimazol 2020-09 Yes [id number] Apply to [facility] e-betametha -09 area(s) 2 ity of sone cream 00:00: (two) [place] 00 times Medical daily. Branch cyclobenzap 2020-09 Yes [id number] TAKE 1 [facility] rine 5 mg 1-09 TABLET BY ity o f tablet 00:00: MOUTH [place] 00 EVERY 8 Medical HOURS Branch NEEDED econazole 2020-09 Yes [id number] Apply to [facility] nitrate 1 % 1-09 area(s) 2 ity of cream 00:00: (two) [place] 00 times Medical daily. Branch albuterol 2020-09 Yes [id number] 2{puff} Inhale 2 [facility] (PROAIR 1-09 Puffs ity of HFA) 90 00:00: every 6 [place] mcg/actuati 00 (six) Medical on inhaler hours as Branc h needed for Wheezing or Shortness of Breath. triamcinolo 2020-09 Yes [id number] Apply to [facility] ne 0.025 % -09 area(s) 3 ity of ointment 00:00: (three) [place] 00 times Medical daily. For Branch itching diltiazem 2020-09 Yes [id number] 120mg Take 1 U nivers (CARTIA XT) 1-09 capsule by it y of 120 mg 24 00:00: mouth 2 [place] hr capsule 00 (two) Medical times Branch daily. cyanocobala 2020-09 Yes [id number] 1000ug 1 mL by [facility] min 1,000 1-09 Intramuscu ity of mcg/mL 00:00: lar route [place] injection 00 every 2 Medical (two) Branch weeks. levothyroxi 2020-09 Yes [id number] 50ug Take 1 [facility] ne 50 mcg 1-09 tablet by ity o f tablet 00:00: mouth [place] 00 every Medical morning. Branch fluticasone 2020-09 Yes [id number] 2{puff} Inhale 2 [facility] propionate 1-09 Puffs ity of (FLOVENT 00:00: every 12 [place] HFA) 110 00 (twelve) Medical mcg/actuati hours. Branch on inhaler Rinse mouth after each use. levalbutero 2020-09 Yes [id number] .63mg Inhale [facility] l 0.63 mg/3 1-09 0.63 mg 3 ity of mL 00:00: (three) [place] nebulizer 00 times Medical solution daily as Branch needed for Wheezing or Shortness of Breath. losartan 50 2020-09 Yes [id number] 50mg Take 1 [facility] mg tablet 1-09 tablet by ity o f 00:00: mouth 2 [place] 00 (two) Medical times Branch daily. clotrimazol 2020-09 Yes [id number] Apply to [facility] e-betametha 10-04 area(s) 2 ity of sone cream 00:00: (two) [place] 00 times Medical daily. Branch cyclobenzap 2020-09 Yes [id number] TAKE 1 [facility] rine 5 mg -09 TABLET BY ity o f tablet 00:00: MOUTH [place] 00 EVERY 8 Medical HOURS Branch NEEDED econazole 2020-09 Yes [id number] Apply to [facility] nitrate 1 % 10-04 area(s) 2 ity of cream 00:00: (two) [place] 00 times Medical daily. Branch albuterol 2020-09 Yes [id number] 2{puff} Inhale 2 [facility] (PROAIR 1-09 Puffs ity of HFA) 90 00:00: every 6 [place] mcg/actuati 00 (six) Medical on inhaler hours as Branc h needed for Wheezing or Shortness of Breath. triamcinolo 2020-09 Yes [id number] Apply to [facility] ne 0.025 % 10-04 area(s) 3 ity of ointment 00:00: (three) [place] 00 times Medical daily. For Branch itching diltiazem 2020-09 Yes [id number] 120mg Take 1 U nivers (CARTIA XT) 10-04 capsule by it y of 120 mg 24 00:00: mouth 2 [place] hr capsule 00 (two) Medical times Branch daily. cyanocobala 2020-09 Yes [id number] 1000ug 1 mL by [facility] min 1,000 09 Intramuscu ity of mcg/mL 00:00: lar route [place] injection 00 every 2 Medical (two) Branch weeks. levothyroxi 2020-09 Yes [id number] 50ug Take 1 [facility] ne 50 mcg -09 tablet by ity o f tablet 00:00: mouth [place] 00 every Medical morning. Branch fluticasone 2020-09 Yes [id number] 2{puff} Inhale 2 [facility] propionate 1-09 Puffs ity of (FLOVENT 00:00: every 12 [place] HFA) 110 00 (twelve) Medical mcg/actuati hours. Branch on inhaler Rinse mouth after each use. levalbutero 2020-09 Yes [id number] .63mg Inhale [facility] l 0.63 mg/3 1-09 0.63 mg 3 ity of mL 00:00: (three) [place] nebulizer 00 times Medical solution daily as Branch needed for Wheezing or Shortness of Breath. losartan 50 2020-09 Yes [id number] 50mg Take 1 [facility] mg tablet -09 tablet by ity o f 00:00: mouth 2 [place] 00 (two) Medical times Branch daily. clotrimazol 2020-09 Yes [id number] Apply to [facility] e-betametha 09 area(s) 2 ity of sone cream 00:00: (two) [place] 00 times Medical daily. Branch cyclobenzap 2020-09 Yes [id number] TAKE 1 [facility] rine 5 mg 09 TABLET BY ity o f tablet 00:00: MOUTH [place] 00 EVERY 8 Medical HOURS Branch NEEDED econazole 2020-09 Yes [id number] Apply to [facility] nitrate 1 % 10-04 area(s) 2 ity of cream 00:00: (two) [place] 00 times Medical daily. Branch albuterol 2020-09 Yes [id number] 2{puff} Inhale 2 [facility] (PROAIR -09 Puffs ity of HFA) 90 00:00: every 6 [place] mcg/actuati 00 (six) Medical on inhaler hours as Branc h needed for Wheezing or Shortness of Breath. triamcinolo 2020-09 Yes [id number] Apply to [facility] ne 0.025 % 10-04 area(s) 3 ity of ointment 00:00: (three) [place] 00 times Medical daily. For Branch itching diltiazem 2020-09 Yes [id number] 120mg Take 1 U nivers (CARTIA XT) 09 capsule by it y of 120 mg 24 00:00: mouth 2 [place] hr capsule 00 (two) Medical times Branch daily. cyanocobala 2020-09 Yes [id number] 1000ug 1 mL by [facility] min 1,000 -09 Intramuscu ity of mcg/mL 00:00: lar route [place] injection 00 every 2 Medical (two) Branch weeks. levothyroxi 2020-09 Yes [id number] 50ug Take 1 [facility] ne 50 mcg -09 tablet by ity o f tablet 00:00: mouth [place] 00 every Medical morning. Branch fluticasone 2020-09 Yes [id number] 2{puff} Inhale 2 [facility] propionate 1-09 Puffs ity of (FLOVENT 00:00: every 12 [place] HFA) 110 00 (twelve) Medical mcg/actuati hours. Branch on inhaler Rinse mouth after each use. levalbutero 2020-09 Yes [id number] .63mg Inhale [facility] l 0.63 mg/3 1-09 0.63 mg 3 ity of mL 00:00: (three) [place] nebulizer 00 times Medical solution daily as Branch needed for Wheezing or Shortness of Breath. losartan 50 2020-09 Yes [id number] 50mg Take 1 [facility] mg tablet -09 tablet by ity o f 00:00: mouth 2 [place] 00 (two) Medical times Branch daily. clotrimazol 2020-09 Yes [id number] Apply to [facility] e-betametha -09 area(s) 2 ity of sone cream 00:00: (two) [place] 00 times Medical daily. Branch cyclobenzap 2020-09 Yes [id number] TAKE 1 [facility] rine 5 mg -09 TABLET BY ity o f tablet 00:00: MOUTH [place] 00 EVERY 8 Medical HOURS Branch NEEDED econazole 2020-09 Yes [id number] Apply to [facility] nitrate 1 % 09 area(s) 2 ity of cream 00:00: (two) [place] 00 times Medical daily. Branch albuterol 2020-09 Yes [id number] 2{puff} Inhale 2 [facility] (PROAIR 1-09 Puffs ity of HFA) 90 00:00: every 6 [place] mcg/actuati 00 (six) Medical on inhaler hours as Branc h needed for Wheezing or Shortness of Breath. triamcinolo 2020-09 Yes [id number] Apply to [facility] ne 0.025 % -09 area(s) 3 ity of ointment 00:00: (three) [place] 00 times Medical daily. For Branch itching diltiazem 2020-09 Yes [id number] 120mg Take 1 U nivers (CARTIA XT) -09 capsule by it y of 120 mg 24 00:00: mouth 2 [place] hr capsule 00 (two) Medical times Branch daily. cyanocobala 2020-09 Yes [id number] 1000ug 1 mL by [facility] min 1,000 1-09 Intramuscu ity of mcg/mL 00:00: lar route [place] injection 00 every 2 Medical (two) Branch weeks. levothyroxi 2020-09 Yes [id number] 50ug Take 1 [facility] ne 50 mcg 1-09 tablet by ity o f tablet 00:00: mouth [place] 00 every Medical morning. Branch fluticasone 2020-09 Yes [id number] 2{puff} Inhale 2 [facility] propionate 1-09 Puffs ity of (FLOVENT 00:00: every 12 [place] HFA) 110 00 (twelve) Medical mcg/actuati hours. Branch on inhaler Rinse mouth after each use. levalbutero 2020-09 Yes [id number] .63mg Inhale [facility] l 0.63 mg/3 1-09 0.63 mg 3 ity of mL 00:00: (three) [place] nebulizer 00 times Medical solution daily as Branch needed for Wheezing or Shortness of Breath. clotrimazol 2020-09 Yes [id number] Apply to [facility] e-betametha -09 area(s) 2 ity of sone cream 00:00: (two) [place] 00 times Medical daily. Branch cyclobenzap 2020-09 Yes [id number] TAKE 1 [facility] rine 5 mg 1-09 TABLET BY ity o f tablet 00:00: MOUTH [place] 00 EVERY 8 Medical HOURS Branch NEEDED econazole 2020-09 Yes [id number] Apply to [facility] nitrate 1 % -09 area(s) 2 ity of cream 00:00: (two) [place] 00 times Medical daily. Branch albuterol 2020-09 Yes [id number] 2{puff} Inhale 2 [facility] (PROAIR 1-09 Puffs ity of HFA) 90 00:00: every 6 [place] mcg/actuati 00 (six) Medical on inhaler hours as Branc h needed for Wheezing or Shortness of Breath. triamcinolo 2020-09 Yes [id number] Apply to [facility] ne 0.025 % 1-09 area(s) 3 ity of ointment 00:00: (three) [place] 00 times Medical daily. For Branch itching cyanocobala 2020-09 Yes [id number] 1000ug 1 mL by [facility] min 1,000 1-09 Intramuscu ity of mcg/mL 00:00: lar route [place] injection 00 every 2 Medical (two) Branch weeks. levothyroxi 2020-09 Yes [id number] 50ug Take 1 [facility] ne 50 mcg 1-09 tablet by ity o f tablet 00:00: mouth [place] 00 every Medical morning. Branch fluticasone 2020-09 Yes [id number] 2{puff} Inhale 2 [facility] propionate 1-09 Puffs ity of (FLOVENT 00:00: every 12 [place] HFA) 110 00 (twelve) Medical mcg/actuati hours. Branch on inhaler Rinse mouth after each use. levalbutero 2020-09 Yes [id number] .63mg Inhale [facility] l 0.63 mg/3 1-09 0.63 mg 3 ity of mL 00:00: (three) [place] nebulizer 00 times Medical solution daily as Branch needed for Wheezing or Shortness of Breath. clotrimazol 2020-09 Yes [id number] Apply to [facility] e-betametha 1-09 area(s) 2 ity of sone cream 00:00: (two) [place] 00 times Medical daily. Branch cyclobenzap 2020-09 Yes [id number] TAKE 1 [facility] rine 5 mg -09 TABLET BY ity o f tablet 00:00: MOUTH [place] 00 EVERY 8 Medical HOURS Branch NEEDED econazole 2020-09 Yes [id number] Apply to [facility] nitrate 1 % -09 area(s) 2 ity of cream 00:00: (two) [place] 00 times Medical daily. Branch albuterol 2020-09 Yes [id number] 2{puff} Inhale 2 [facility] (PROAIR 1-09 Puffs ity of HFA) 90 00:00: every 6 [place] mcg/actuati 00 (six) Medical on inhaler hours as Branc h needed for Wheezing or Shortness of Breath. triamcinolo 2020-09 Yes [id number] Apply to [facility] ne 0.025 % 1-09 area(s) 3 ity of ointment 00:00: (three) [place] 00 times Medical daily. For Branch itching cyanocobala 2020-09 Yes [id number] 1000ug 1 mL by [facility] min 1,000 1-09 Intramuscu ity of mcg/mL 00:00: lar route [place] injection 00 every 2 Medical (two) Branch weeks. levothyroxi 2020-09 Yes [id number] 50ug Take 1 [facility] ne 50 mcg 1-09 tablet by ity o f tablet 00:00: mouth [place] 00 every Medical morning. Branch fluticasone 2020-09 Yes [id number] 2{puff} Inhale 2 [facility] propionate 1-09 Puffs ity of (FLOVENT 00:00: every 12 [place] HFA) 110 00 (twelve) Medical mcg/actuati hours. Branch on inhaler Rinse mouth after each use. levalbutero 2020-09 Yes [id number] .63mg Inhale [facility] l 0.63 mg/3 1-09 0.63 mg 3 ity of mL 00:00: (three) [place] nebulizer 00 times Medical solution daily as Branch needed for Wheezing or Shortness of Breath. clotrimazol 2020-09 Yes [id number] Apply to [facility] e-betametha -09 area(s) 2 ity of sone cream 00:00: (two) [place] 00 times Medical daily. Branch cyclobenzap 2020-09 Yes [id number] TAKE 1 [facility] rine 5 mg -09 TABLET BY ity o f tablet 00:00: MOUTH [place] 00 EVERY 8 Medical HOURS Branch NEEDED econazole 2020-09 Yes [id number] Apply to [facility] nitrate 1 % -09 area(s) 2 ity of cream 00:00: (two) [place] 00 times Medical daily. Branch albuterol 2020-09 Yes [id number] 2{puff} Inhale 2 [facility] (PROAIR 1-09 Puffs ity of HFA) 90 00:00: every 6 [place] mcg/actuati 00 (six) Medical on inhaler hours as Branc h needed for Wheezing or Shortness of Breath. triamcinolo 2020-09 Yes [id number] Apply to [facility] ne 0.025 % 1-09 area(s) 3 ity of ointment 00:00: (three) [place] 00 times Medical daily. For Branch itching cyanocobala 2020-09 Yes [id number] 1000ug 1 mL by [facility] min 1,000 1-09 Intramuscu ity of mcg/mL 00:00: lar route [place] injection 00 every 2 Medical (two) Branch weeks. levothyroxi 2020-09 Yes [id number] 50ug Take 1 [facility] ne 50 mcg 1-09 tablet by ity o f tablet 00:00: mouth [place] 00 every Medical morning. Branch fluticasone 2020-09 Yes [id number] 2{puff} Inhale 2 [facility] propionate 1-09 Puffs ity of (FLOVENT 00:00: every 12 [place] HFA) 110 00 (twelve) Medical mcg/actuati hours. Branch on inhaler Rinse mouth after each use. levalbutero 2020-09 Yes [id number] .63mg Inhale [facility] l 0.63 mg/3 1-09 0.63 mg 3 ity of mL 00:00: (three) [place] nebulizer 00 times Medical solution daily as Branch needed for Wheezing or Shortness of Breath. clotrimazol 2020-09 Yes [id number] Apply to [facility] e-betametha -09 area(s) 2 ity of sone cream 00:00: (two) [place] 00 times Medical daily. Branch cyclobenzap 2020-09 Yes [id number] TAKE 1 [facility] rine 5 mg -09 TABLET BY ity o f tablet 00:00: MOUTH [place] 00 EVERY 8 Medical HOURS Branch NEEDED econazole 2020-09 Yes [id number] Apply to [facility] nitrate 1 % -09 area(s) 2 ity of cream 00:00: (two) [place] 00 times Medical daily. Branch albuterol 2020-09 Yes [id number] 2{puff} Inhale 2 [facility] (PROAIR 1-09 Puffs ity of HFA) 90 00:00: every 6 [place] mcg/actuati 00 (six) Medical on inhaler hours as Branc h needed for Wheezing or Shortness of Breath. triamcinolo 2020-09 Yes [id number] Apply to [facility] ne 0.025 % -09 area(s) 3 ity of ointment 00:00: (three) [place] 00 times Medical daily. For Branch itching cyanocobala 2020-09 Yes [id number] 1000ug 1 mL by [facility] min 1,000 1-09 Intramuscu ity of mcg/mL 00:00: lar route [place] injection 00 every 2 Medical (two) Branch weeks. levothyroxi 2020-09 Yes [id number] 50ug Take 1 [facility] ne 50 mcg -09 tablet by ity o f tablet 00:00: mouth [place] 00 every Medical morning. Branch fluticasone 2020-09 Yes [id number] 2{puff} Inhale 2 [facility] propionate 1-09 Puffs ity of (FLOVENT 00:00: every 12 [place] HFA) 110 00 (twelve) Medical mcg/actuati hours. Branch on inhaler Rinse mouth after each use. levalbutero 2020-09 Yes [id number] .63mg Inhale [facility] l 0.63 mg/3 1-09 0.63 mg 3 ity of mL 00:00: (three) [place] nebulizer 00 times Medical solution daily as Branch needed for Wheezing or Shortness of Breath. clotrimazol 2020-09 Yes [id number] Apply to [facility] e-betametha 1-09 area(s) 2 ity of sone cream 00:00: (two) [place] 00 times Medical daily. Branch cyclobenzap 2020-09 Yes [id number] TAKE 1 [facility] rine 5 mg -09 TABLET BY ity o f tablet 00:00: MOUTH [place] 00 EVERY 8 Medical HOURS Branch NEEDED econazole 2020-09 Yes [id number] Apply to [facility] nitrate 1 % -09 area(s) 2 ity of cream 00:00: (two) [place] 00 times Medical daily. Branch albuterol 2020-09 Yes [id number] 2{puff} Inhale 2 [facility] (PROAIR 1-09 Puffs ity of HFA) 90 00:00: every 6 [place] mcg/actuati 00 (six) Medical on inhaler hours as Branc h needed for Wheezing or Shortness of Breath. triamcinolo 2020-09 Yes [id number] Apply to [facility] ne 0.025 % 1-09 area(s) 3 ity of ointment 00:00: (three) [place] 00 times Medical daily. For Branch itching cyanocobala 2020-09 Yes [id number] 1000ug 1 mL by [facility] min 1,000 1-09 Intramuscu ity of mcg/mL 00:00: lar route [place] injection 00 every 2 Medical (two) Branch weeks. levothyroxi 2020-09 Yes [id number] 50ug Take 1 [facility] ne 50 mcg 1-09 tablet by it[facility] o f tablet 00:00: mouth [place] 00 every Medical morning. Branch fluticasone 2020-09 Yes [id number] 2{puff} Inhale 2 [facility] propionate 1-09 Puffs ity of (FLOVENT 00:00: every 12 [place] HFA) 110 00 (twelve) Medical mcg/actuati hours. Branch on inhaler Rinse mouth after each use. levalbutero 2020-09 Yes [id number] .63mg Inhale [facility] l 0.63 mg/3 1-09 0.63 mg 3 ity of mL 00:00: (three) [place] nebulizer 00 times Medical solution daily as Branch needed for Wheezing or Shortness of Breath. clotrimazol 2020-09 Yes [id number] Apply to [facility] e-betametha -09 area(s) 2 ity of sone cream 00:00: (two) [place] 00 times Medical daily. Branch cyclobenzap 2020-09 Yes [id number] TAKE 1 [facility] rine 5 mg -09 TABLET BY it[facility] o f tablet 00:00: MOUTH [place] 00 EVERY 8 Medical HOURS Branch NEEDED econazole 2020-09 Yes [id number] Apply to [facility] nitrate 1 % 10-04 area(s) 2 ity of cream 00:00: (two) [place] 00 times Medical daily. Branch albuterol 2020-09 Yes [id number] 2{puff} Inhale 2 [facility] (PROAIR 1-09 Puffs ity of HFA) 90 00:00: every 6 [place] mcg/actuati 00 (six) Medical on inhaler hours as Branc h needed for Wheezing or Shortness of Breath. triamcinolo 2020-09 Yes [id number] Apply to [facility] ne 0.025 % 09 area(s) 3 ity of ointment 00:00: (three) [place] 00 times Medical daily. For Branch itching cyanocobala 2020-09 Yes [id number] 1000ug 1 mL by [facility] min 1,000 1-09 Intramuscu ity of mcg/mL 00:00: lar route [place] injection 00 every 2 Medical (two) Branch weeks. levothyroxi 2020-09 Yes [id number] 50ug Take 1 [facility] ne 50 mcg 1-09 tablet by it[facility] o f tablet 00:00: mouth [place] 00 every Medical morning. Branch fluticasone 2020-09 Yes [id number] 2{puff} Inhale 2 [facility] propionate 1-09 Puffs ity of (FLOVENT 00:00: every 12 [place] HFA) 110 00 (twelve) Medical mcg/actuati hours. Branch on inhaler Rinse mouth after each use. levalbutero 2020-09 Yes [id number] .63mg Inhale [facility] l 0.63 mg/3 1-09 0.63 mg 3 ity of mL 00:00: (three) [place] nebulizer 00 times Medical solution daily as Branch needed for Wheezing or Shortness of Breath. clotrimazol 2020-09 Yes [id number] Apply to [facility] e-betametha 09 area(s) 2 ity of sone cream 00:00: (two) [place] 00 times Medical daily. Branch cyclobenzap 2020-09 Yes [id number] TAKE 1 [facility] rine 5 mg -09 TABLET BY ity o f tablet 00:00: MOUTH [place] 00 EVERY 8 Medical HOURS Branch NEEDED econazole 2020-09 Yes [id number] Apply to [facility] nitrate 1 % 09 area(s) 2 ity of cream 00:00: (two) [place] 00 times Medical daily. Branch albuterol 2020-09 Yes [id number] 2{puff} Inhale 2 [facility] (PROAIR 1-09 Puffs ity of HFA) 90 00:00: every 6 [place] mcg/actuati 00 (six) Medical on inhaler hours as Branc h needed for Wheezing or Shortness of Breath. triamcinolo 2020-09 Yes [id number] Apply to [facility] ne 0.025 % 09 area(s) 3 ity of ointment 00:00: (three) [place] 00 times Medical daily. For Branch itching cyanocobala 2020-09 Yes [id number] 1000ug 1 mL by [facility] min 1,000 -09 Intramuscu ity of mcg/mL 00:00: lar route [place] injection 00 every 2 Medical (two) Branch weeks. levothyroxi 2020-09 Yes [id number] 50ug Take 1 [facility] ne 50 mcg 1-09 tablet by ity o f tablet 00:00: mouth [place] 00 every Medical morning. Branch fluticasone 2020-09 Yes [id number] 2{puff} Inhale 2 [facility] propionate 1-09 Puffs ity of (FLOVENT 00:00: every 12 [place] HFA) 110 00 (twelve) Medical mcg/actuati hours. Branch on inhaler Rinse mouth after each use. levalbutero 2020-09 Yes [id number] .63mg Inhale [facility] l 0.63 mg/3 -09 0.63 mg 3 ity of mL 00:00: (three) [place] nebulizer 00 times Medical solution daily as Branch needed for Wheezing or Shortness of Breath. clotrimazol 2020-09 Yes [id number] Apply to [facility] e-betametha 09 area(s) 2 ity of sone cream 00:00: (two) [place] 00 times Medical daily. Branch cyclobenzap 2020-09 Yes [id number] TAKE 1 [facility] rine 5 mg 09 TABLET BY ity o f tablet 00:00: MOUTH [place] 00 EVERY 8 Medical HOURS Branch NEEDED econazole 2020-09 Yes [id number] Apply to [facility] nitrate 1 % 10-04 area(s) 2 ity of cream 00:00: (two) [place] 00 times Medical daily. Branch albuterol 2020-09 Yes [id number] 2{puff} Inhale 2 [facility] (PROAIR 1-09 Puffs ity of HFA) 90 00:00: every 6 [place] mcg/actuati 00 (six) Medical on inhaler hours as Branc h needed for Wheezing or Shortness of Breath. triamcinolo 2020-09 Yes [id number] Apply to [facility] ne 0.025 % 10-04 area(s) 3 ity of ointment 00:00: (three) [place] 00 times Medical daily. For Branch itching cyanocobala 2020-09 Yes [id number] 1000ug 1 mL by [facility] min 1,000 -09 Intramuscu ity of mcg/mL 00:00: lar route [place] injection 00 every 2 Medical (two) Branch weeks. levothyroxi 2020-09 Yes [id number] 50ug Take 1 [facility] ne 50 mcg -09 tablet by ity o f tablet 00:00: mouth [place] 00 every Medical morning. Branch fluticasone 2020-09 Yes [id number] 2{puff} Inhale 2 [facility] propionate 1-09 Puffs ity of (FLOVENT 00:00: every 12 [place] HFA) 110 00 (twelve) Medical mcg/actuati hours. Branch on inhaler Rinse mouth after each use. levalbutero 2020-09 Yes [id number] .63mg Inhale [facility] l 0.63 mg/3 1-09 0.63 mg 3 ity of mL 00:00: (three) [place] nebulizer 00 times Medical solution daily as Branch needed for Wheezing or Shortness of Breath. clotrimazol 2020-09 Yes [id number] Apply to [facility] e-betametha 1-09 area(s) 2 ity of sone cream 00:00: (two) [place] 00 times Medical daily. Branch cyclobenzap 2020-09 Yes [id number] TAKE 1 [facility] rine 5 mg 1-09 TABLET BY ity o f tablet 00:00: MOUTH [place] 00 EVERY 8 Medical HOURS Branch NEEDED econazole 2020-09 Yes [id number] Apply to [facility] nitrate 1 % -09 area(s) 2 ity of cream 00:00: (two) [place] 00 times Medical daily. Branch albuterol 2020-09 Yes [id number] 2{puff} Inhale 2 [facility] (PROAIR 1-09 Puffs ity of HFA) 90 00:00: every 6 [place] mcg/actuati 00 (six) Medical on inhaler hours as Branc h needed for Wheezing or Shortness of Breath. triamcinolo 2020-09 Yes [id number] Apply to [facility] ne 0.025 % 1-09 area(s) 3 ity of ointment 00:00: (three) [place] 00 times Medical daily. For Branch itching cyanocobala 2020-09 Yes [id number] 1000ug 1 mL by [facility] min 1,000 1-09 Intramuscu ity of mcg/mL 00:00: lar route [place] injection 00 every 2 Medical (two) Branch weeks. levothyroxi 2020-09 Yes [id number] 50ug Take 1 [facility] ne 50 mcg 1-09 tablet by ity o f tablet 00:00: mouth [place] 00 every Medical morning. Branch fluticasone 2020-09 Yes [id number] 2{puff} Inhale 2 [facility] propionate 1-09 Puffs ity of (FLOVENT 00:00: every 12 [place] HFA) 110 00 (twelve) Medical mcg/actuati hours. Branch on inhaler Rinse mouth after each use. levalbutero 2020-09 Yes [id number] .63mg Inhale [facility] l 0.63 mg/3 1-09 0.63 mg 3 ity of mL 00:00: (three) [place] nebulizer 00 times Medical solution daily as Branch needed for Wheezing or Shortness of Breath. clotrimazol 2020-09 Yes [id number] Apply to [facility] e-betametha -09 area(s) 2 ity of sone cream 00:00: (two) [place] 00 times Medical daily. Branch cyclobenzap 2020-09 Yes [id number] TAKE 1 [facility] rine 5 mg 1-09 TABLET BY ity o f tablet 00:00: MOUTH [place] 00 EVERY 8 Medical HOURS Branch NEEDED econazole 2020-09 Yes [id number] Apply to [facility] nitrate 1 % 09 area(s) 2 ity of cream 00:00: (two) [place] 00 times Medical daily. Branch albuterol 2020-09 Yes [id number] 2{puff} Inhale 2 [facility] (PROAIR 1-09 Puffs ity of HFA) 90 00:00: every 6 [place] mcg/actuati 00 (six) Medical on inhaler hours as Branc h needed for Wheezing or Shortness of Breath. triamcinolo 2020-09 Yes [id number] Apply to [facility] ne 0.025 % 09 area(s) 3 ity of ointment 00:00: (three) [place] 00 times Medical daily. For Branch itching cyanocobala 2020-09 Yes [id number] 1000ug 1 mL by [facility] min 1,000 1-09 Intramuscu ity of mcg/mL 00:00: lar route [place] injection 00 every 2 Medical (two) Branch weeks. levothyroxi 2020-09 Yes [id number] 50ug Take 1 [facility] ne 50 mcg 09 tablet by ity o f tablet 00:00: mouth [place] 00 every Medical morning. Branch fluticasone 2020-09 Yes [id number] 2{puff} Inhale 2 [facility] propionate 1-09 Puffs ity of (FLOVENT 00:00: every 12 [place] HFA) 110 00 (twelve) Medical mcg/actuati hours. Branch on inhaler Rinse mouth after each use. levalbutero 2020-09 Yes [id number] .63mg Inhale [facility] l 0.63 mg/3 1-09 0.63 mg 3 ity of mL 00:00: (three) [place] nebulizer 00 times Medical solution daily as Branch needed for Wheezing or Shortness of Breath. clotrimazol 2020-09 Yes [id number] Apply to [facility] e-betametha - area(s) 2 ity of sone cream 00:00: (two) [place] 00 times Medical daily. Branch cyclobenzap 2020-09 Yes [id number] TAKE 1 [facility] rine 5 mg -09 TABLET BY ity o f tablet 00:00: MOUTH [place] 00 EVERY 8 Medical HOURS Branch NEEDED econazole 2020-09 Yes [id number] Apply to [facility] nitrate 1 % 10-04 area(s) 2 ity of cream 00:00: (two) [place] 00 times Medical daily. Branch albuterol 2020-09 Yes [id number] 2{puff} Inhale 2 [facility] (PROAIR 1-09 Puffs ity of HFA) 90 00:00: every 6 [place] mcg/actuati 00 (six) Medical on inhaler hours as Branc h needed for Wheezing or Shortness of Breath. triamcinolo 2020-09 Yes [id number] Apply to [facility] ne 0.025 % 10-04 area(s) 3 ity of ointment 00:00: (three) [place] 00 times Medical daily. For Branch itching cyanocobala 2020-09 Yes [id number] 1000ug 1 mL by [facility] min 1,000 1-09 Intramuscu ity of mcg/mL 00:00: lar route [place] injection 00 every 2 Medical (two) Branch weeks. levothyroxi 2020-09 Yes [id number] 50ug Take 1 [facility] ne 50 mcg - tablet by ity o f tablet 00:00: mouth [place] 00 every Medical morning. Branch fluticasone 2020-09 Yes [id number] 2{puff} Inhale 2 [facility] propionate 1-09 Puffs ity of (FLOVENT 00:00: every 12 [place] HFA) 110 00 (twelve) Medical mcg/actuati hours. Branch on inhaler Rinse mouth after each use. levalbutero 2020-09 Yes [id number] .63mg Inhale [facility] l 0.63 mg/3 1-09 0.63 mg 3 ity of mL 00:00: (three) [place] nebulizer 00 times Medical solution daily as Branch needed for Wheezing or Shortness of Breath. clotrimazol 2020-09 Yes [id number] Apply to [facility] e-betametha 1-09 area(s) 2 ity of sone cream 00:00: (two) [place] 00 times Medical daily. Branch cyclobenzap 2020-09 Yes [id number] TAKE 1 [facility] rine 5 mg 1-09 TABLET BY ity o f tablet 00:00: MOUTH [place] 00 EVERY 8 Medical HOURS Branch NEEDED econazole 2020-09 Yes [id number] Apply to [facility] nitrate 1 % -09 area(s) 2 ity of cream 00:00: (two) [place] 00 times Medical daily. Branch albuterol 2020-09 Yes [id number] 2{puff} Inhale 2 [facility] (PROAIR 1-09 Puffs ity of HFA) 90 00:00: every 6 [place] mcg/actuati 00 (six) Medical on inhaler hours as Branc h needed for Wheezing or Shortness of Breath. triamcinolo 2020-09 Yes [id number] Apply to [facility] ne 0.025 % 10-04 area(s) 3 ity of ointment 00:00: (three) [place] 00 times Medical daily. For Branch itching cyanocobala 2020-09 Yes [id number] 1000ug 1 mL by [facility] min 1,000 1-09 Intramuscu ity of mcg/mL 00:00: lar route [place] injection 00 every 2 Medical (two) Branch weeks. levothyroxi 2020-09 Yes [id number] 50ug Take 1 [facility] ne 50 mcg -09 tablet by ity o f tablet 00:00: mouth [place] 00 every Medical morning. Branch fluticasone 2020-09 Yes [id number] 2{puff} Inhale 2 [facility] propionate 1-09 Puffs ity of (FLOVENT 00:00: every 12 [place] HFA) 110 00 (twelve) Medical mcg/actuati hours. Branch on inhaler Rinse mouth after each use. levalbutero 2020-09 Yes [id number] .63mg Inhale [facility] l 0.63 mg/3 1-09 0.63 mg 3 ity of mL 00:00: (three) [place] nebulizer 00 times Medical solution daily as Branch needed for Wheezing or Shortness of Breath. clotrimazol 2020-09 Yes [id number] Apply to [facility] e-betametha -09 area(s) 2 ity of sone cream 00:00: (two) [place] 00 times Medical daily. Branch cyclobenzap 2020-09 Yes [id number] TAKE 1 [facility] rine 5 mg 1-09 TABLET BY ity o f tablet 00:00: MOUTH [place] 00 EVERY 8 Medical HOURS Branch NEEDED econazole 2020-09 Yes [id number] Apply to [facility] nitrate 1 % 09 area(s) 2 ity of cream 00:00: (two) [place] 00 times Medical daily. Branch albuterol 2020-09 Yes [id number] 2{puff} Inhale 2 [facility] (PROAIR 1-09 Puffs ity of HFA) 90 00:00: every 6 [place] mcg/actuati 00 (six) Medical on inhaler hours as Branc h needed for Wheezing or Shortness of Breath. triamcinolo 2020-09 Yes [id number] Apply to [facility] ne 0.025 % 10-04 area(s) 3 ity of ointment 00:00: (three) [place] 00 times Medical daily. For Branch itching cyanocobala 2020-09 Yes [id number] 1000ug 1 mL by [facility] min 1,000 1-09 Intramuscu ity of mcg/mL 00:00: lar route [place] injection 00 every 2 Medical (two) Branch weeks. levothyroxi 2020-09 Yes [id number] 50ug Take 1 [facility] ne 50 mcg -09 tablet by ity o f tablet 00:00: mouth [place] 00 every Medical morning. Branch fluticasone 2020-09 Yes [id number] 2{puff} Inhale 2 [facility] propionate 1-09 Puffs ity of (FLOVENT 00:00: every 12 [place] HFA) 110 00 (twelve) Medical mcg/actuati hours. Branch on inhaler Rinse mouth after each use. levalbutero 2020-09 Yes [id number] .63mg Inhale [facility] l 0.63 mg/3 1-09 0.63 mg 3 ity of mL 00:00: (three) [place] nebulizer 00 times Medical solution daily as Branch needed for Wheezing or Shortness of Breath. clotrimazol 2020-09 Yes [id number] Apply to [facility] e-betametha 1-09 area(s) 2 ity of sone cream 00:00: (two) [place] 00 times Medical daily. Branch cyclobenzap 2020-09 Yes [id number] TAKE 1 [facility] rine 5 mg 1-09 TABLET BY ity o f tablet 00:00: MOUTH [place] 00 EVERY 8 Medical HOURS Branch NEEDED econazole 2020-09 Yes [id number] Apply to [facility] nitrate 1 % -09 area(s) 2 ity of cream 00:00: (two) [place] 00 times Medical daily. Branch albuterol 2020-09 Yes [id number] 2{puff} Inhale 2 [facility] (PROAIR 1-09 Puffs ity of HFA) 90 00:00: every 6 [place] mcg/actuati 00 (six) Medical on inhaler hours as Branc h needed for Wheezing or Shortness of Breath. triamcinolo 2020-09 Yes [id number] Apply to [facility] ne 0.025 % 10-04 area(s) 3 ity of ointment 00:00: (three) [place] 00 times Medical daily. For Branch itching cyanocobala 2020-09 Yes [id number] 1000ug 1 mL by [facility] min 1,000 -09 Intramuscu ity of mcg/mL 00:00: lar route [place] injection 00 every 2 Medical (two) Branch weeks. levothyroxi 2020-09 Yes [id number] 50ug Take 1 [facility] ne 50 mcg -09 tablet by ity o f tablet 00:00: mouth [place] 00 every Medical morning. Branch fluticasone 2020-09 Yes [id number] 2{puff} Inhale 2 [facility] propionate 1-09 Puffs ity of (FLOVENT 00:00: every 12 [place] HFA) 110 00 (twelve) Medical mcg/actuati hours. Branch on inhaler Rinse mouth after each use. levalbutero 2020-09 Yes [id number] .63mg Inhale [facility] l 0.63 mg/3 1-09 0.63 mg 3 ity of mL 00:00: (three) [place] nebulizer 00 times Medical solution daily as Branch needed for Wheezing or Shortness of Breath. clotrimazol 2020-09 Yes [id number] Apply to [facility] e-betametha -09 area(s) 2 ity of sone cream 00:00: (two) [place] 00 times Medical daily. Branch cyclobenzap 2020-09 Yes [id number] TAKE 1 [facility] rine 5 mg 1-09 TABLET BY ity o f tablet 00:00: MOUTH [place] 00 EVERY 8 Medical HOURS Branch NEEDED econazole 2020-09 Yes [id number] Apply to [facility] nitrate 1 % 1-09 area(s) 2 ity of cream 00:00: (two) [place] 00 times Medical daily. Branch albuterol 2020-09 Yes [id number] 2{puff} Inhale 2 [facility] (PROAIR 1-09 Puffs ity of HFA) 90 00:00: every 6 [place] mcg/actuati 00 (six) Medical on inhaler hours as Branc h needed for Wheezing or Shortness of Breath. triamcinolo 2020-09 Yes [id number] Apply to [facility] ne 0.025 % 1-09 area(s) 3 ity of ointment 00:00: (three) [place] 00 times Medical daily. For Branch itching cyanocobala 2020-09 Yes [id number] 1000ug 1 mL by [facility] min 1,000 1-09 Intramuscu ity of mcg/mL 00:00: lar route [place] injection 00 every 2 Medical (two) Branch weeks. levothyroxi 2020-09 Yes [id number] 50ug Take 1 [facility] ne 50 mcg 1-09 tablet by ity o f tablet 00:00: mouth [place] 00 every Medical morning. Branch fluticasone 2020-09 Yes [id number] 2{puff} Inhale 2 [facility] propionate 1-09 Puffs ity of (FLOVENT 00:00: every 12 [place] HFA) 110 00 (twelve) Medical mcg/actuati hours. Branch on inhaler Rinse mouth after each use. levalbutero 2020-09 Yes [id number] .63mg Inhale [facility] l 0.63 mg/3 1-09 0.63 mg 3 ity of mL 00:00: (three) [place] nebulizer 00 times Medical solution daily as Branch needed for Wheezing or Shortness of Breath. clotrimazol 2020-09 Yes [id number] Apply to [facility] e-betametha 1-09 area(s) 2 ity of sone cream 00:00: (two) [place] 00 times Medical daily. Branch cyclobenzap 2020-09 Yes [id number] TAKE 1 [facility] rine 5 mg 1-09 TABLET BY ity o f tablet 00:00: MOUTH [place] 00 EVERY 8 Medical HOURS Branch NEEDED econazole 2020-09 Yes [id number] Apply to [facility] nitrate 1 % 1-09 area(s) 2 ity of cream 00:00: (two) [place] 00 times Medical daily. Branch albuterol 2020-09 Yes [id number] 2{puff} Inhale 2 [facility] (PROAIR 1-09 Puffs ity of HFA) 90 00:00: every 6 [place] mcg/actuati 00 (six) Medical on inhaler hours as Branc h needed for Wheezing or Shortness of Breath. triamcinolo 2020-09 Yes [id number] Apply to [facility] ne 0.025 % -09 area(s) 3 ity of ointment 00:00: (three) [place] 00 times Medical daily. For Branch itching cyanocobala 2020-09 Yes [id number] 1000ug 1 mL by [facility] min 1,000 -09 Intramuscu ity of mcg/mL 00:00: lar route [place] injection 00 every 2 Medical (two) Branch weeks. levothyroxi 2020-09 Yes [id number] 50ug Take 1 [facility] ne 50 mcg -09 tablet by ity o f tablet 00:00: mouth [place] 00 every Medical morning. Branch fluticasone 2020-09 Yes [id number] 2{puff} Inhale 2 [facility] propionate 1-09 Puffs ity of (FLOVENT 00:00: every 12 [place] HFA) 110 00 (twelve) Medical mcg/actuati hours. Branch on inhaler Rinse mouth after each use. levalbutero 2020-09 Yes [id number] .63mg Inhale [facility] l 0.63 mg/3 1-09 0.63 mg 3 ity of mL 00:00: (three) [place] nebulizer 00 times Medical solution daily as Branch needed for Wheezing or Shortness of Breath. clotrimazol 2020-09 Yes [id number] Apply to [facility] e-betametha -09 area(s) 2 ity of sone cream 00:00: (two) [place] 00 times Medical daily. Branch cyclobenzap 2020-09 Yes [id number] TAKE 1 [facility] rine 5 mg -09 TABLET BY ity o f tablet 00:00: MOUTH [place] 00 EVERY 8 Medical HOURS Branch NEEDED econazole 2020-09 Yes [id number] Apply to [facility] nitrate 1 % -09 area(s) 2 ity of cream 00:00: (two) [place] 00 times Medical daily. Branch albuterol 2020-09 Yes [id number] 2{puff} Inhale 2 [facility] (PROAIR 1-09 Puffs ity of HFA) 90 00:00: every 6 [place] mcg/actuati 00 (six) Medical on inhaler hours as Branc h needed for Wheezing or Shortness of Breath. triamcinolo 2020-09 Yes [id number] Apply to [facility] ne 0.025 % 1-09 area(s) 3 ity of ointment 00:00: (three) [place] 00 times Medical daily. For Branch itching cyanocobala 2020-09 Yes [id number] 1000ug 1 mL by [facility] min 1,000 1-09 Intramuscu ity of mcg/mL 00:00: lar route [place] injection 00 every 2 Medical (two) Branch weeks. levothyroxi 2020-09 Yes [id number] 50ug Take 1 [facility] ne 50 mcg 1-09 tablet by ity o f tablet 00:00: mouth [place] 00 every Medical morning. Branch fluticasone 2020-09 Yes [id number] 2{puff} Inhale 2 [facility] propionate 1-09 Puffs ity of (FLOVENT 00:00: every 12 [place] HFA) 110 00 (twelve) Medical mcg/actuati hours. Branch on inhaler Rinse mouth after each use. levalbutero 2020-09 Yes [id number] .63mg Inhale [facility] l 0.63 mg/3 1-09 0.63 mg 3 ity of mL 00:00: (three) [place] nebulizer 00 times Medical solution daily as Branch needed for Wheezing or Shortness of Breath. clotrimazol 2020-09 Yes [id number] Apply to [facility] e-betametha 1-09 area(s) 2 ity of sone cream 00:00: (two) [place] 00 times Medical daily. Branch cyclobenzap 2020-09 Yes [id number] TAKE 1 [facility] rine 5 mg 1-09 TABLET BY ity o f tablet 00:00: MOUTH [place] 00 EVERY 8 Medical HOURS Branch NEEDED econazole 2020-09 Yes [id number] Apply to [facility] nitrate 1 % 1-09 area(s) 2 ity of cream 00:00: (two) [place] 00 times Medical daily. Branch albuterol 2020-09 Yes [id number] 2{puff} Inhale 2 [facility] (PROAIR 1-09 Puffs ity of HFA) 90 00:00: every 6 [place] mcg/actuati 00 (six) Medical on inhaler hours as Branc h needed for Wheezing or Shortness of Breath. triamcinolo 2020-09 Yes [id number] Apply to [facility] ne 0.025 % 1-09 area(s) 3 ity of ointment 00:00: (three) [place] 00 times Medical daily. For Branch itching cyanocobala 2020-09 Yes [id number] 1000ug 1 mL by [facility] min 1,000 -09 Intramuscu ity of mcg/mL 00:00: lar route [place] injection 00 every 2 Medical (two) Branch weeks. levothyroxi 2020-09 Yes [id number] 50ug Take 1 [facility] ne 50 mcg -09 tablet by ity o f tablet 00:00: mouth [place] 00 every Medical morning. Branch fluticasone 2020-09 Yes [id number] 2{puff} Inhale 2 [facility] propionate 1-09 Puffs ity of (FLOVENT 00:00: every 12 [place] HFA) 110 00 (twelve) Medical mcg/actuati hours. Branch on inhaler Rinse mouth after each use. levalbutero 2020-09 Yes [id number] .63mg Inhale [facility] l 0.63 mg/3 1-09 0.63 mg 3 ity of mL 00:00: (three) [place] nebulizer 00 times Medical solution daily as Branch needed for Wheezing or Shortness of Breath. clotrimazol 2020-09 Yes [id number] Apply to [facility] e-betametha - area(s) 2 ity of sone cream 00:00: (two) [place] 00 times Medical daily. Branch cyclobenzap 2020-09 Yes [id number] TAKE 1 [facility] rine 5 mg 1-09 TABLET BY ity o f tablet 00:00: MOUTH [place] 00 EVERY 8 Medical HOURS Branch NEEDED econazole 2020-09 Yes [id number] Apply to [facility] nitrate 1 % -09 area(s) 2 ity of cream 00:00: (two) [place] 00 times Medical daily. Branch albuterol 2020-09 Yes [id number] 2{puff} Inhale 2 [facility] (PROAIR 1-09 Puffs ity of HFA) 90 00:00: every 6 [place] mcg/actuati 00 (six) Medical on inhaler hours as Branc h needed for Wheezing or Shortness of Breath. triamcinolo 2020-09 Yes [id number] Apply to [facility] ne 0.025 % -09 area(s) 3 ity of ointment 00:00: (three) [place] 00 times Medical daily. For Branch itching cyanocobala 2020-09 Yes [id number] 1000ug 1 mL by [facility] min 1,000 -09 Intramuscu ity of mcg/mL 00:00: lar route [place] injection 00 every 2 Medical (two) Branch weeks. levothyroxi 2020-09 Yes [id number] 50ug Take 1 [facility] ne 50 mcg -09 tablet by ity o f tablet 00:00: mouth [place] 00 every Medical morning. Branch fluticasone 2020-09 Yes [id number] 2{puff} Inhale 2 [facility] propionate 1-09 Puffs ity of (FLOVENT 00:00: every 12 [place] HFA) 110 00 (twelve) Medical mcg/actuati hours. Branch on inhaler Rinse mouth after each use. levalbutero 2020-09 Yes [id number] .63mg Inhale [facility] l 0.63 mg/3 -09 0.63 mg 3 ity of mL 00:00: (three) [place] nebulizer 00 times Medical solution daily as Branch needed for Wheezing or Shortness of Breath. clotrimazol 2020-09 Yes [id number] Apply to [facility] e-betametha 10-04 area(s) 2 ity of sone cream 00:00: (two) [place] 00 times Medical daily. Branch cyclobenzap 2020-09 Yes [id number] TAKE 1 [facility] rine 5 mg -09 TABLET BY ity o f tablet 00:00: MOUTH [place] 00 EVERY 8 Medical HOURS Branch NEEDED econazole 2020-09 Yes [id number] Apply to [facility] nitrate 1 % -09 area(s) 2 ity of cream 00:00: (two) [place] 00 times Medical daily. Branch albuterol 2020-09 Yes [id number] 2{puff} Inhale 2 [facility] (PROAIR 1-09 Puffs ity of HFA) 90 00:00: every 6 [place] mcg/actuati 00 (six) Medical on inhaler hours as Branc h needed for Wheezing or Shortness of Breath. triamcinolo 2020-09 Yes [id number] Apply to [facility] ne 0.025 % -09 area(s) 3 ity of ointment 00:00: (three) [place] 00 times Medical daily. For Branch itching cyanocobala 2020-09 Yes [id number] 1000ug 1 mL by [facility] min 1,000 -09 Intramuscu ity of mcg/mL 00:00: lar route [place] injection 00 every 2 Medical (two) Branch weeks. levothyroxi 2020-09 Yes [id number] 50ug Take 1 [facility] ne 50 mcg -09 tablet by ity o f tablet 00:00: mouth [place] 00 every Medical morning. Branch fluticasone 2020-09 Yes [id number] 2{puff} Inhale 2 [facility] propionate 1-09 Puffs ity of (FLOVENT 00:00: every 12 [place] HFA) 110 00 (twelve) Medical mcg/actuati hours. Branch on inhaler Rinse mouth after each use. levalbutero 2020-09 Yes [id number] .63mg Inhale [facility] l 0.63 mg/3 1-09 0.63 mg 3 ity of mL 00:00: (three) [place] nebulizer 00 times Medical solution daily as Branch needed for Wheezing or Shortness of Breath. clotrimazol 2020-09 Yes [id number] Apply to [facility] e-betametha 10-04 area(s) 2 ity of sone cream 00:00: (two) [place] 00 times Medical daily. Branch cyclobenzap 2020-09 Yes [id number] TAKE 1 [facility] rine 5 mg -09 TABLET BY ity o f tablet 00:00: MOUTH [place] 00 EVERY 8 Medical HOURS Branch NEEDED econazole 2020-09 Yes [id number] Apply to [facility] nitrate 1 % 09 area(s) 2 ity of cream 00:00: (two) [place] 00 times Medical daily. Branch albuterol 2020-09 Yes [id number] 2{puff} Inhale 2 [facility] (PROAIR 1-09 Puffs ity of HFA) 90 00:00: every 6 [place] mcg/actuati 00 (six) Medical on inhaler hours as Branc h needed for Wheezing or Shortness of Breath. triamcinolo 2020-09 Yes [id number] Apply to [facility] ne 0.025 % 10-04 area(s) 3 ity of ointment 00:00: (three) [place] 00 times Medical daily. For Branch itching cyanocobala 2020-09 Yes [id number] 1000ug 1 mL by [facility] min 1,000 -09 Intramuscu ity of mcg/mL 00:00: lar route [place] injection 00 every 2 Medical (two) Branch weeks. levothyroxi 2020-09 Yes [id number] 50ug Take 1 [facility] ne 50 mcg -09 tablet by ity o f tablet 00:00: mouth [place] 00 every Medical morning. Branch fluticasone 2020-09 Yes [id number] 2{puff} Inhale 2 [facility] propionate -09 Puffs ity of (FLOVENT 00:00: every 12 [place] HFA) 110 00 (twelve) Medical mcg/actuati hours. Branch on inhaler Rinse mouth after each use. levalbutero 2020-09 Yes [id number] .63mg Inhale [facility] l 0.63 mg/3 -09 0.63 mg 3 ity of mL 00:00: (three) [place] nebulizer 00 times Medical solution daily as Branch needed for Wheezing or Shortness of Breath. clotrimazol 2020-09 Yes [id number] Apply to [facility] e-betametha 10-04 area(s) 2 ity of sone cream 00:00: (two) [place] 00 times Medical daily. Branch cyclobenzap 2020-09 Yes [id number] TAKE 1 [facility] rine 5 mg 09 TABLET BY ity o f tablet 00:00: MOUTH [place] 00 EVERY 8 Medical HOURS Branch NEEDED econazole 2020-09 Yes [id number] Apply to [facility] nitrate 1 % 09 area(s) 2 ity of cream 00:00: (two) [place] 00 times Medical daily. Branch albuterol 2020-09 Yes [id number] 2{puff} Inhale 2 [facility] (PROAIR 1-09 Puffs ity of HFA) 90 00:00: every 6 [place] mcg/actuati 00 (six) Medical on inhaler hours as Branc h needed for Wheezing or Shortness of Breath. triamcinolo 2020-09 Yes [id number] Apply to [facility] ne 0.025 % -09 area(s) 3 ity of ointment 00:00: (three) [place] 00 times Medical daily. For Branch itching cyanocobala 2020-09 Yes [id number] 1000ug 1 mL by [facility] min 1,000 -09 Intramuscu ity of mcg/mL 00:00: lar route [place] injection 00 every 2 Medical (two) Branch weeks. levothyroxi 2020-09 Yes [id number] 50ug Take 1 [facility] ne 50 mcg 1-09 tablet by ity o f tablet 00:00: mouth [place] 00 every Medical morning. Branch fluticasone 2020-09 Yes [id number] 2{puff} Inhale 2 [facility] propionate 1-09 Puffs ity of (FLOVENT 00:00: every 12 [place] HFA) 110 00 (twelve) Medical mcg/actuati hours. Branch on inhaler Rinse mouth after each use. levalbutero 2020-09 Yes [id number] .63mg Inhale [facility] l 0.63 mg/3 -09 0.63 mg 3 ity of mL 00:00: (three) [place] nebulizer 00 times Medical solution daily as Branch needed for Wheezing or Shortness of Breath. clotrimazol 2020-09 Yes [id number] Apply to [facility] e-betametha 10-04 area(s) 2 ity of sone cream 00:00: (two) [place] 00 times Medical daily. Branch cyclobenzap 2020-09 Yes [id number] TAKE 1 [facility] rine 5 mg -09 TABLET BY ity o f tablet 00:00: MOUTH [place] 00 EVERY 8 Medical HOURS Branch NEEDED econazole 2020-09 Yes [id number] Apply to [facility] nitrate 1 % -09 area(s) 2 ity of cream 00:00: (two) [place] 00 times Medical daily. Branch albuterol 2020-09 Yes [id number] 2{puff} Inhale 2 [facility] (PROAIR 1-09 Puffs ity of HFA) 90 00:00: every 6 [place] mcg/actuati 00 (six) Medical on inhaler hours as Branc h needed for Wheezing or Shortness of Breath. triamcinolo 2020-09 Yes [id number] Apply to [facility] ne 0.025 % 1-09 area(s) 3 ity of ointment 00:00: (three) [place] 00 times Medical daily. For Branch itching cyanocobala 2020-09 Yes [id number] 1000ug 1 mL by [facility] min 1,000 1-09 Intramuscu ity of mcg/mL 00:00: lar route [place] injection 00 every 2 Medical (two) Branch weeks. levothyroxi 2020-09 Yes [id number] 50ug Take 1 [facility] ne 50 mcg 1-09 tablet by ity o f tablet 00:00: mouth [place] 00 every Medical morning. Branch fluticasone 2020-09 Yes [id number] 2{puff} Inhale 2 [facility] propionate 1-09 Puffs ity of (FLOVENT 00:00: every 12 [place] HFA) 110 00 (twelve) Medical mcg/actuati hours. Branch on inhaler Rinse mouth after each use. levalbutero 2020-09 Yes [id number] .63mg Inhale [facility] l 0.63 mg/3 1-09 0.63 mg 3 ity of mL 00:00: (three) [place] nebulizer 00 times Medical solution daily as Branch needed for Wheezing or Shortness of Breath. clotrimazol 2020-09 Yes [id number] Apply to [facility] e-betametha 1-09 area(s) 2 ity of sone cream 00:00: (two) [place] 00 times Medical daily. Branch cyclobenzap 2020-09 Yes [id number] TAKE 1 [facility] rine 5 mg -09 TABLET BY ity o f tablet 00:00: MOUTH [place] 00 EVERY 8 Medical HOURS Branch NEEDED econazole 2020-09 Yes [id number] Apply to [facility] nitrate 1 % -09 area(s) 2 ity of cream 00:00: (two) [place] 00 times Medical daily. Branch albuterol 2020-09 Yes [id number] 2{puff} Inhale 2 [facility] (PROAIR 1-09 Puffs ity of HFA) 90 00:00: every 6 [place] mcg/actuati 00 (six) Medical on inhaler hours as Branc h needed for Wheezing or Shortness of Breath. triamcinolo 2020-09 Yes [id number] Apply to [facility] ne 0.025 % 1-09 area(s) 3 ity of ointment 00:00: (three) [place] 00 times Medical daily. For Branch itching cyanocobala 2020-09 Yes [id number] 1000ug 1 mL by [facility] min 1,000 1-09 Intramuscu ity of mcg/mL 00:00: lar route [place] injection 00 every 2 Medical (two) Branch weeks. levothyroxi 2020-09 Yes [id number] 50ug Take 1 [facility] ne 50 mcg 1-09 tablet by ity o f tablet 00:00: mouth [place] 00 every Medical morning. Branch fluticasone 2020-09 Yes [id number] 2{puff} Inhale 2 [facility] propionate 1-09 Puffs ity of (FLOVENT 00:00: every 12 [place] HFA) 110 00 (twelve) Medical mcg/actuati hours. Branch on inhaler Rinse mouth after each use. levalbutero 2020-09 Yes [id number] .63mg Inhale [facility] l 0.63 mg/3 1-09 0.63 mg 3 ity of mL 00:00: (three) [place] nebulizer 00 times Medical solution daily as Branch needed for Wheezing or Shortness of Breath. clotrimazol 2020-09 Yes [id number] Apply to [facility] e-betametha 1-09 area(s) 2 ity of sone cream 00:00: (two) [place] 00 times Medical daily. Branch cyclobenzap 2020-09 Yes [id number] TAKE 1 [facility] rine 5 mg 1-09 TABLET BY ity o f tablet 00:00: MOUTH [place] 00 EVERY 8 Medical HOURS Branch NEEDED econazole 2020-09 Yes [id number] Apply to [facility] nitrate 1 % 1-09 area(s) 2 ity of cream 00:00: (two) [place] 00 times Medical daily. Branch albuterol 2020-09 Yes [id number] 2{puff} Inhale 2 [facility] (PROAIR 1-09 Puffs ity of HFA) 90 00:00: every 6 [place] mcg/actuati 00 (six) Medical on inhaler hours as Branc h needed for Wheezing or Shortness of Breath. triamcinolo 2020-09 Yes [id number] Apply to [facility] ne 0.025 % 1-09 area(s) 3 ity of ointment 00:00: (three) [place] 00 times Medical daily. For Branch itching cyanocobala 2020-09 Yes [id number] 1000ug 1 mL by [facility] min 1,000 1-09 Intramuscu ity of mcg/mL 00:00: lar route [place] injection 00 every 2 Medical (two) Branch weeks. levothyroxi 2020-09 Yes [id number] 50ug Take 1 [facility] ne 50 mcg 1-09 tablet by ity o f tablet 00:00: mouth [place] 00 every Medical morning. Branch fluticasone 2020-09 Yes [id number] 2{puff} Inhale 2 [facility] propionate 1-09 Puffs ity of (FLOVENT 00:00: every 12 [place] HFA) 110 00 (twelve) Medical mcg/actuati hours. Branch on inhaler Rinse mouth after each use. levalbutero 2020-09 Yes [id number] .63mg Inhale [facility] l 0.63 mg/3 1-09 0.63 mg 3 ity of mL 00:00: (three) [place] nebulizer 00 times Medical solution daily as Branch needed for Wheezing or Shortness of Breath. clotrimazol 2020-09 Yes [id number] Apply to [facility] e-betametha -09 area(s) 2 ity of sone cream 00:00: (two) [place] 00 times Medical daily. Branch cyclobenzap 2020-09 Yes [id number] TAKE 1 [facility] rine 5 mg 1-09 TABLET BY ity o f tablet 00:00: MOUTH [place] 00 EVERY 8 Medical HOURS Branch NEEDED econazole 2020-09 Yes [id number] Apply to [facility] nitrate 1 % -09 area(s) 2 ity of cream 00:00: (two) [place] 00 times Medical daily. Branch albuterol 2020-09 Yes [id number] 2{puff} Inhale 2 [facility] (PROAIR 1-09 Puffs ity of HFA) 90 00:00: every 6 [place] mcg/actuati 00 (six) Medical on inhaler hours as Branc h needed for Wheezing or Shortness of Breath. triamcinolo 2020-09 Yes [id number] Apply to [facility] ne 0.025 % 1-09 area(s) 3 ity of ointment 00:00: (three) [place] 00 times Medical daily. For Branch itching cyanocobala 2020-09 Yes [id number] 1000ug 1 mL by [facility] min 1,000 1-09 Intramuscu ity of mcg/mL 00:00: lar route [place] injection 00 every 2 Medical (two) Branch weeks. levothyroxi 2020-09 Yes [id number] 50ug Take 1 [facility] ne 50 mcg 1-09 tablet by ity o f tablet 00:00: mouth [place] 00 every Medical morning. Branch fluticasone 2020-09 Yes [id number] 2{puff} Inhale 2 [facility] propionate 1-09 Puffs ity of (FLOVENT 00:00: every 12 [place] HFA) 110 00 (twelve) Medical mcg/actuati hours. Branch on inhaler Rinse mouth after each use. levalbutero 2020-09 Yes [id number] .63mg Inhale [facility] l 0.63 mg/3 1-09 0.63 mg 3 ity of mL 00:00: (three) [place] nebulizer 00 times Medical solution daily as Branch needed for Wheezing or Shortness of Breath. clotrimazol 2020-09 Yes [id number] Apply to [facility] e-betametha 1-09 area(s) 2 ity of sone cream 00:00: (two) [place] 00 times Medical daily. Branch cyclobenzap 2020-09 Yes [id number] TAKE 1 [facility] rine 5 mg 1-09 TABLET BY ity o f tablet 00:00: MOUTH [place] 00 EVERY 8 Medical HOURS Branch NEEDED econazole 2020-09 Yes [id number] Apply to [facility] nitrate 1 % 1-09 area(s) 2 ity of cream 00:00: (two) [place] 00 times Medical daily. Branch albuterol 2020-09 Yes [id number] 2{puff} Inhale 2 [facility] (PROAIR 1-09 Puffs ity of HFA) 90 00:00: every 6 [place] mcg/actuati 00 (six) Medical on inhaler hours as Branc h needed for Wheezing or Shortness of Breath. triamcinolo 2020-09 Yes [id number] Apply to [facility] ne 0.025 % 1-09 area(s) 3 ity of ointment 00:00: (three) [place] 00 times Medical daily. For Branch itching cyanocobala 2020-09 Yes [id number] 1000ug 1 mL by [facility] min 1,000 1-09 Intramuscu ity of mcg/mL 00:00: lar route [place] injection 00 every 2 Medical (two) Branch weeks. levothyroxi 2020-09 Yes [id number] 50ug Take 1 [facility] ne 50 mcg 1-09 tablet by ity o f tablet 00:00: mouth [place] 00 every Medical morning. Branch fluticasone 2020-09 Yes [id number] 2{puff} Inhale 2 [facility] propionate 1-09 Puffs ity of (FLOVENT 00:00: every 12 [place] HFA) 110 00 (twelve) Medical mcg/actuati hours. Branch on inhaler Rinse mouth after each use. levalbutero 2020-09 Yes [id number] .63mg Inhale [facility] l 0.63 mg/3 1-09 0.63 mg 3 ity of mL 00:00: (three) [place] nebulizer 00 times Medical solution daily as Branch needed for Wheezing or Shortness of Breath. clotrimazol 2020-09 Yes [id number] Apply to [facility] e-betametha -09 area(s) 2 ity of sone cream 00:00: (two) [place] 00 times Medical daily. Branch cyclobenzap 2020-09 Yes [id number] TAKE 1 [facility] rine 5 mg -09 TABLET BY ity o f tablet 00:00: MOUTH [place] 00 EVERY 8 Medical HOURS Branch NEEDED econazole 2020-09 Yes [id number] Apply to [facility] nitrate 1 % 10-04 area(s) 2 ity of cream 00:00: (two) [place] 00 times Medical daily. Branch albuterol 2020-09 Yes [id number] 2{puff} Inhale 2 [facility] (PROAIR 1-09 Puffs ity of HFA) 90 00:00: every 6 [place] mcg/actuati 00 (six) Medical on inhaler hours as Branc h needed for Wheezing or Shortness of Breath. triamcinolo 2020-09 Yes [id number] Apply to [facility] ne 0.025 % -09 area(s) 3 ity of ointment 00:00: (three) [place] 00 times Medical daily. For Branch itching cyanocobala 2020-09 Yes [id number] 1000ug 1 mL by [facility] min 1,000 1-09 Intramuscu ity of mcg/mL 00:00: lar route [place] injection 00 every 2 Medical (two) Branch weeks. levothyroxi 2020-09 Yes [id number] 50ug Take 1 [facility] ne 50 mcg 1-09 tablet by ity o f tablet 00:00: mouth [place] 00 every Medical morning. Branch fluticasone 2020-09 Yes [id number] 2{puff} Inhale 2 [facility] propionate 1-09 Puffs ity of (FLOVENT 00:00: every 12 [place] HFA) 110 00 (twelve) Medical mcg/actuati hours. Branch on inhaler Rinse mouth after each use. levalbutero 2020-09 Yes [id number] .63mg Inhale [facility] l 0.63 mg/3 1-09 0.63 mg 3 ity of mL 00:00: (three) [place] nebulizer 00 times Medical solution daily as Branch needed for Wheezing or Shortness of Breath. clotrimazol 2020-09 Yes [id number] Apply to [facility] e-betametha -09 area(s) 2 ity of sone cream 00:00: (two) [place] 00 times Medical daily. Branch cyclobenzap 2020-09 Yes [id number] TAKE 1 [facility] rine 5 mg -09 TABLET BY ity o f tablet 00:00: MOUTH [place] 00 EVERY 8 Medical HOURS Branch NEEDED econazole 2020-09 Yes [id number] Apply to [facility] nitrate 1 % -09 area(s) 2 ity of cream 00:00: (two) [place] 00 times Medical daily. Branch albuterol 2020-09 Yes [id number] 2{puff} Inhale 2 [facility] (PROAIR 1-09 Puffs ity of HFA) 90 00:00: every 6 [place] mcg/actuati 00 (six) Medical on inhaler hours as Branc h needed for Wheezing or Shortness of Breath. triamcinolo 2020-09 Yes [id number] Apply to [facility] ne 0.025 % 1-09 area(s) 3 ity of ointment 00:00: (three) [place] 00 times Medical daily. For Branch itching cyanocobala 2020-09 Yes [id number] 1000ug 1 mL by [facility] min 1,000 1-09 Intramuscu ity of mcg/mL 00:00: lar route [place] injection 00 every 2 Medical (two) Branch weeks. levothyroxi 2020-09 Yes [id number] 50ug Take 1 [facility] ne 50 mcg 1-09 tablet by ity o f tablet 00:00: mouth [place] 00 every Medical morning. Branch fluticasone 2020-09 Yes [id number] 2{puff} Inhale 2 [facility] propionate 1-09 Puffs ity of (FLOVENT 00:00: every 12 [place] HFA) 110 00 (twelve) Medical mcg/actuati hours. Branch on inhaler Rinse mouth after each use. levalbutero 2020-09 Yes [id number] .63mg Inhale [facility] l 0.63 mg/3 1-09 0.63 mg 3 ity of mL 00:00: (three) [place] nebulizer 00 times Medical solution daily as Branch needed for Wheezing or Shortness of Breath. clotrimazol 2020-09 Yes [id number] Apply to [facility] e-betametha 1-09 area(s) 2 ity of sone cream 00:00: (two) [place] 00 times Medical daily. Branch cyclobenzap 2020-09 Yes [id number] TAKE 1 [facility] rine 5 mg -09 TABLET BY ity o f tablet 00:00: MOUTH [place] 00 EVERY 8 Medical HOURS Branch NEEDED econazole 2020-09 Yes [id number] Apply to [facility] nitrate 1 % -09 area(s) 2 ity of cream 00:00: (two) [place] 00 times Medical daily. Branch albuterol 2020-09 Yes [id number] 2{puff} Inhale 2 [facility] (PROAIR 1-09 Puffs ity of HFA) 90 00:00: every 6 [place] mcg/actuati 00 (six) Medical on inhaler hours as Branc h needed for Wheezing or Shortness of Breath. triamcinolo 2020-09 Yes [id number] Apply to [facility] ne 0.025 % 1-09 area(s) 3 ity of ointment 00:00: (three) [place] 00 times Medical daily. For Branch itching cyanocobala 2020-09 Yes [id number] 1000ug 1 mL by [facility] min 1,000 1-09 Intramuscu ity of mcg/mL 00:00: lar route [place] injection 00 every 2 Medical (two) Branch weeks. levothyroxi 2020-09 Yes [id number] 50ug Take 1 [facility] ne 50 mcg 1-09 tablet by ity o f tablet 00:00: mouth [place] 00 every Medical morning. Branch fluticasone 2020-09 Yes [id number] 2{puff} Inhale 2 [facility] propionate 1-09 Puffs ity of (FLOVENT 00:00: every 12 [place] HFA) 110 00 (twelve) Medical mcg/actuati hours. Branch on inhaler Rinse mouth after each use. levalbutero 2020-09 Yes [id number] .63mg Inhale [facility] l 0.63 mg/3 1-09 0.63 mg 3 ity of mL 00:00: (three) [place] nebulizer 00 times Medical solution daily as Branch needed for Wheezing or Shortness of Breath. clotrimazol 2020-09 Yes [id number] Apply to [facility] e-betametha -09 area(s) 2 ity of sone cream 00:00: (two) [place] 00 times Medical daily. Branch cyclobenzap 2020-09 Yes [id number] TAKE 1 [facility] rine 5 mg -09 TABLET BY ity o f tablet 00:00: MOUTH [place] 00 EVERY 8 Medical HOURS Branch NEEDED econazole 2020-09 Yes [id number] Apply to [facility] nitrate 1 % - area(s) 2 ity of cream 00:00: (two) [place] 00 times Medical daily. Branch albuterol 2020-09 Yes [id number] 2{puff} Inhale 2 [facility] (PROAIR 1-09 Puffs ity of HFA) 90 00:00: every 6 [place] mcg/actuati 00 (six) Medical on inhaler hours as Branc h needed for Wheezing or Shortness of Breath. triamcinolo 2020-09 Yes [id number] Apply to [facility] ne 0.025 % -09 area(s) 3 ity of ointment 00:00: (three) [place] 00 times Medical daily. For Branch itching cyanocobala 2020-09 Yes [id number] 1000ug 1 mL by [facility] min 1,000 1-09 Intramuscu ity of mcg/mL 00:00: lar route [place] injection 00 every 2 Medical (two) Branch weeks. levothyroxi 2020-09 Yes [id number] 50ug Take 1 [facility] ne 50 mcg 1-09 tablet by ity o f tablet 00:00: mouth [place] 00 every Medical morning. Branch fluticasone 2020-09 Yes [id number] 2{puff} Inhale 2 [facility] propionate 1-09 Puffs ity of (FLOVENT 00:00: every 12 [place] HFA) 110 00 (twelve) Medical mcg/actuati hours. Branch on inhaler Rinse mouth after each use. levalbutero 2020-09 Yes [id number] .63mg Inhale [facility] l 0.63 mg/3 1-09 0.63 mg 3 ity of mL 00:00: (three) [place] nebulizer 00 times Medical solution daily as Branch needed for Wheezing or Shortness of Breath. clotrimazol 2020-09 Yes [id number] Apply to [facility] e-betametha 09 area(s) 2 ity of sone cream 00:00: (two) [place] 00 times Medical daily. Branch cyclobenzap 2020-09 Yes [id number] TAKE 1 [facility] rine 5 mg 09 TABLET BY ity o f tablet 00:00: MOUTH [place] 00 EVERY 8 Medical HOURS Branch NEEDED econazole 2020-09 Yes [id number] Apply to [facility] nitrate 1 % 10-04 area(s) 2 ity of cream 00:00: (two) [place] 00 times Medical daily. Branch albuterol 2020-09 Yes [id number] 2{puff} Inhale 2 [facility] (PROAIR 1-09 Puffs ity of HFA) 90 00:00: every 6 [place] mcg/actuati 00 (six) Medical on inhaler hours as Branc h needed for Wheezing or Shortness of Breath. triamcinolo 2020-09 Yes [id number] Apply to [facility] ne 0.025 % 10-04 area(s) 3 ity of ointment 00:00: (three) [place] 00 times Medical daily. For Branch itching cyanocobala 2020-09 Yes [id number] 1000ug 1 mL by [facility] min 1,000 -09 Intramuscu ity of mcg/mL 00:00: lar route [place] injection 00 every 2 Medical (two) Branch weeks. levothyroxi 2020-09 Yes [id number] 50ug Take 1 [facility] ne 50 mcg -09 tablet by ity o f tablet 00:00: mouth [place] 00 every Medical morning. Branch fluticasone 2020-09 Yes [id number] 2{puff} Inhale 2 [facility] propionate 1-09 Puffs ity of (FLOVENT 00:00: every 12 [place] HFA) 110 00 (twelve) Medical mcg/actuati hours. Branch on inhaler Rinse mouth after each use. levalbutero 2020-09 Yes [id number] .63mg Inhale [facility] l 0.63 mg/3 1-09 0.63 mg 3 ity of mL 00:00: (three) [place] nebulizer 00 times Medical solution daily as Branch needed for Wheezing or Shortness of Breath. clotrimazol 2020-09 Yes [id number] Apply to [facility] e-betametha 09 area(s) 2 ity of sone cream 00:00: (two) [place] 00 times Medical daily. Branch cyclobenzap 2020-09 Yes [id number] TAKE 1 [facility] rine 5 mg 10-04 TABLET BY ity o f tablet 00:00: MOUTH [place] 00 EVERY 8 Medical HOURS Branch NEEDED econazole 2020-09 Yes [id number] Apply to [facility] nitrate 1 % 10-04 area(s) 2 ity of cream 00:00: (two) [place] 00 times Medical daily. Branch albuterol 2020-09 Yes [id number] 2{puff} Inhale 2 [facility] (PROAIR 1-09 Puffs ity of HFA) 90 00:00: every 6 [place] mcg/actuati 00 (six) Medical on inhaler hours as Branc h needed for Wheezing or Shortness of Breath. triamcinolo 2020-09 Yes [id number] Apply to [facility] ne 0.025 % 10-04 area(s) 3 ity of ointment 00:00: (three) [place] 00 times Medical daily. For Branch itching cyanocobala 2020-09 Yes [id number] 1000ug 1 mL by [facility] min 1,000 1-09 Intramuscu ity of mcg/mL 00:00: lar route [place] injection 00 every 2 Medical (two) Branch weeks. fluticasone 2020-09 Yes [id number] 2{puff} Inhale 2 [facility] propionate 1-09 Puffs ity of (FLOVENT 00:00: every 12 [place] HFA) 110 00 (twelve) Medical mcg/actuati hours. Branch on inhaler Rinse mouth after each use. levalbutero 2020-09 Yes [id number] .63mg Inhale [facility] l 0.63 mg/3 1-09 0.63 mg 3 ity of mL 00:00: (three) [place] nebulizer 00 times Medical solution daily as Branch needed for Wheezing or Shortness of Breath. clotrimazol 2020-09 Yes [id number] Apply to [facility] e-betametha 10-04 area(s) 2 ity of sone cream 00:00: (two) [place] 00 times Medical daily. Branch cyclobenzap 2020-09 Yes [id number] TAKE 1 [facility] rine 5 mg 10-04 TABLET BY ity o f tablet 00:00: MOUTH [place] 00 EVERY 8 Medical HOURS Branch NEEDED econazole 2020-09 Yes [id number] Apply to [facility] nitrate 1 % 10-04 area(s) 2 ity of cream 00:00: (two) [place] 00 times Medical daily. Branch albuterol 2020-09 Yes [id number] 2{puff} Inhale 2 [facility] (PROAIR 1-09 Puffs ity of HFA) 90 00:00: every 6 [place] mcg/actuati 00 (six) Medical on inhaler hours as Branc h needed for Wheezing or Shortness of Breath. triamcinolo 2020-09 Yes [id number] Apply to [facility] ne 0.025 % 10-04 area(s) 3 ity of ointment 00:00: (three) [place] 00 times Medical daily. For Branch itching cyanocobala 2020-09 Yes [id number] 1000ug 1 mL by [facility] min 1,000 1-09 Intramuscu ity of mcg/mL 00:00: lar route [place] injection 00 every 2 Medical (two) Branch weeks. fluticasone 2020-09 Yes [id number] 2{puff} Inhale 2 [facility] propionate 1-09 Puffs ity of (FLOVENT 00:00: every 12 [place] HFA) 110 00 (twelve) Medical mcg/actuati hours. Branch on inhaler Rinse mouth after each use. levalbutero 2020-09 Yes [id number] .63mg Inhale [facility] l 0.63 mg/3 09 0.63 mg 3 ity of mL 00:00: (three) [place] nebulizer 00 times Medical solution daily as Branch needed for Wheezing or Shortness of Breath. clotrimazol 2020-09 Yes [id number] Apply to [facility] e-betametha 10-04 area(s) 2 ity of sone cream 00:00: (two) [place] 00 times Medical daily. Branch cyclobenzap 2020-09 Yes [id number] TAKE 1 [facility] rine 5 mg 1-09 TABLET BY ity o f tablet 00:00: MOUTH [place] 00 EVERY 8 Medical HOURS Branch NEEDED econazole 2020-09 Yes [id number] Apply to [facility] nitrate 1 % 09 area(s) 2 ity of cream 00:00: (two) [place] 00 times Medical daily. Branch albuterol 2020-09 Yes [id number] 2{puff} Inhale 2 [facility] (PROAIR 1-09 Puffs ity of HFA) 90 00:00: every 6 [place] mcg/actuati 00 (six) Medical on inhaler hours as Branc h needed for Wheezing or Shortness of Breath. triamcinolo 2020-09 Yes [id number] Apply to [facility] ne 0.025 % 10-04 area(s) 3 ity of ointment 00:00: (three) [place] 00 times Medical daily. For Branch itching cyanocobala 2020-09 Yes [id number] 1000ug 1 mL by [facility] min 1,000 1-09 Intramuscu ity of mcg/mL 00:00: lar route [place] injection 00 every 2 Medical (two) Branch weeks. levalbutero 2020-09 Yes [id number] .63mg Inhale [facility] l 0.63 mg/3 1-09 0.63 mg 3 ity of mL 00:00: (three) [place] nebulizer 00 times Medical solution daily as Branch needed for Wheezing or Shortness of Breath. cyclobenzap 2020-09 Yes [id number] TAKE 1 [facility] rine 5 mg 1-09 TABLET BY ity o f tablet 00:00: MOUTH [place] 00 EVERY 8 Medical HOURS Branch NEEDED albuterol 2020-09 Yes [id number] 2{puff} Inhale 2 [facility] (PROAIR 1-09 Puffs ity of HFA) 90 00:00: every 6 [place] mcg/actuati 00 (six) Medical on inhaler hours as Branc h needed for Wheezing or Shortness of Breath. cyanocobala 2020-09 Yes [id number] 1000ug 1 mL by [facility] min 1,000 1-09 Intramuscu ity of mcg/mL 00:00: lar route [place] injection 00 every 2 Medical (two) Branch weeks. levalbutero 2020-09 Yes [id number] .63mg Inhale [facility] l 0.63 mg/3 1-09 0.63 mg 3 ity of mL 00:00: (three) [place] nebulizer 00 times Medical solution daily as Branch needed for Wheezing or Shortness of Breath. cyclobenzap 2020-09 Yes [id number] TAKE 1 [facility] rine 5 mg 1-09 TABLET BY ity o f tablet 00:00: MOUTH [place] 00 EVERY 8 Medical HOURS Branch NEEDED albuterol 2020-09 Yes [id number] 2{puff} Inhale 2 [facility] (PROAIR 1-09 Puffs ity of HFA) 90 00:00: every 6 [place] mcg/actuati 00 (six) Medical on inhaler hours as Branc h needed for Wheezing or Shortness of Breath. cyanocobala 2020-09 Yes [id number] 1000ug 1 mL by [facility] min 1,000 1-09 Intramuscu ity of mcg/mL 00:00: lar route [place] injection 00 every 2 Medical (two) Branch weeks. levalbutero 2020-09 Yes [id number] .63mg Inhale [facility] l 0.63 mg/3 1-09 0.63 mg 3 ity of mL 00:00: (three) [place] nebulizer 00 times Medical solution daily as Branch needed for Wheezing or Shortness of Breath. cyclobenzap 2020-09 Yes [id number] TAKE 1 [facility] rine 5 mg 1-09 TABLET BY ity o f tablet 00:00: MOUTH [place] 00 EVERY 8 Medical HOURS Branch NEEDED albuterol 2020-09 Yes [id number] 2{puff} Inhale 2 [facility] (PROAIR 1-09 Puffs ity of HFA) 90 00:00: every 6 [place] mcg/actuati 00 (six) Medical on inhaler hours as Branc h needed for Wheezing or Shortness of Breath. cyanocobala 2020-09 Yes [id number] 1000ug 1 mL by [facility] min 1,000 1-09 Intramuscu ity of mcg/mL 00:00: lar route [place] injection 00 every 2 Medical (two) Branch weeks. levalbutero 2020-09 Yes [id number] .63mg Inhale [facility] l 0.63 mg/3 1-09 0.63 mg 3 ity of mL 00:00: (three) [place] nebulizer 00 times Medical solution daily as Branch needed for Wheezing or Shortness of Breath. cyclobenzap 2020-09 Yes [id number] TAKE 1 [facility] rine 5 mg 1-09 TABLET BY ity o f tablet 00:00: MOUTH [place] 00 EVERY 8 Medical HOURS Branch NEEDED albuterol 2020-09 Yes [id number] 2{puff} Inhale 2 [facility] (PROAIR 1-09 Puffs ity of HFA) 90 00:00: every 6 [place] mcg/actuati 00 (six) Medical on inhaler hours as Branc h needed for Wheezing or Shortness of Breath. cyanocobala 2020-09 Yes [id number] 1000ug 1 mL by [facility] min 1,000 1-09 Intramuscu ity of mcg/mL 00:00: lar route [place] injection 00 every 2 Medical (two) Branch weeks. levalbutero 2020-09 Yes [id number] .63mg Inhale [facility] l 0.63 mg/3 1-09 0.63 mg 3 ity of mL 00:00: (three) [place] nebulizer 00 times Medical solution daily as Branch needed for Wheezing or Shortness of Breath. cyclobenzap 2020-09 Yes [id number] TAKE 1 [facility] rine 5 mg 1-09 TABLET BY ity o f tablet 00:00: MOUTH [place] 00 EVERY 8 Medical HOURS Branch NEEDED albuterol 2020-09 Yes [id number] 2{puff} Inhale 2 [facility] (PROAIR 1-09 Puffs ity of HFA) 90 00:00: every 6 [place] mcg/actuati 00 (six) Medical on inhaler hours as Branc h needed for Wheezing or Shortness of Breath. rosuvastati 2020-09 Yes [id number] 10mg Take 1 [facility] n 10 mg 1-09 tablet by ity of tablet 00:00: mouth at [place] 00 bedtime. Medical Branch cyanocobala 2020-09 Yes [id number] 1000ug 1 mL by [facility] min 1,000 1-09 Intramuscu ity of mcg/mL 00:00: lar route [place] injection 00 every 2 Medical (two) Branch weeks. levothyroxi 2020-09 Yes [id number] 50ug Take 1 [facility] ne 50 mcg 1-09 tablet by ity o f tablet 00:00: mouth [place] 00 every Medical morning. Branch fluticasone 2020-09 Yes [id number] 2{puff} Inhale 2 [facility] propionate 1-09 Puffs ity of (FLOVENT 00:00: every 12 [place] HFA) 110 00 (twelve) Medical mcg/actuati hours. Branch on inhaler Rinse mouth after each use. levalbutero 2020-09 Yes [id number] .63mg Inhale [facility] l 0.63 mg/3 1-09 0.63 mg 3 ity of mL 00:00: (three) [place] nebulizer 00 times Medical solution daily as Branch needed for Wheezing or Shortness of Breath. losartan 50 2020-09 Yes [id number] 50mg Take 1 [facility] mg tablet -09 tablet by ity o f 00:00: mouth 2 [place] 00 (two) Medical times Branch daily. clotrimazol 2020-09 Yes [id number] Apply to [facility] e-betametha -09 area(s) 2 ity of sone cream 00:00: (two) [place] 00 times Medical daily. Branch cyclobenzap 2020-09 Yes [id number] TAKE 1 [facility] rine 5 mg -09 TABLET BY ity o f tablet 00:00: MOUTH [place] 00 EVERY 8 Medical HOURS Branch NEEDED econazole 2020-09 Yes [id number] Apply to [facility] nitrate 1 % 09 area(s) 2 ity of cream 00:00: (two) [place] 00 times Medical daily. Branch albuterol 2020-09 Yes [id number] 2{puff} Inhale 2 [facility] (PROAIR 1-09 Puffs ity of HFA) 90 00:00: every 6 [place] mcg/actuati 00 (six) Medical on inhaler hours as Branc h needed for Wheezing or Shortness of Breath. triamcinolo 2020-09 Yes [id number] Apply to [facility] ne 0.025 % -09 area(s) 3 ity of ointment 00:00: (three) [place] 00 times Medical daily. For Branch itching diltiazem 2020-09 Yes [id number] 120mg Take 1 [facility] (CARTIA XT) -09 capsule by it y of 120 mg 24 00:00: mouth 2 [place] hr capsule 00 (two) Medical times Branch daily. rosuvastati 2020-09 Yes [id number] 10mg Take 1 [facility] n 10 mg 1-09 tablet by ity of tablet 00:00: mouth at [place] 00 bedtime. Medical Branch cyanocobala 2020-09 Yes [id number] 1000ug 1 mL by [facility] min 1,000 1-09 Intramuscu ity of mcg/mL 00:00: lar route [place] injection 00 every 2 Medical (two) Branch weeks. levothyroxi 2020-09 Yes [id number] 50ug Take 1 [facility] ne 50 mcg 1-09 tablet by ity o f tablet 00:00: mouth [place] 00 every Medical morning. Branch fluticasone 2020-09 Yes [id number] 2{puff} Inhale 2 [facility] propionate 1-09 Puffs ity of (FLOVENT 00:00: every 12 [place] HFA) 110 00 (twelve) Medical mcg/actuati hours. Branch on inhaler Rinse mouth after each use. levalbutero 2020-09 Yes [id number] .63mg Inhale [facility] l 0.63 mg/3 1-09 0.63 mg 3 ity of mL 00:00: (three) [place] nebulizer 00 times Medical solution daily as Branch needed for Wheezing or Shortness of Breath. losartan 50 2020-09 Yes [id number] 50mg Take 1 [facility] mg tablet 1-09 tablet by ity o f 00:00: mouth 2 [place] 00 (two) Medical times Branch daily. clotrimazol 2020-09 Yes [id number] Apply to [facility] e-betametha -09 area(s) 2 ity of sone cream 00:00: (two) [place] 00 times Medical daily. Branch cyclobenzap 2020-09 Yes [id number] TAKE 1 [facility] rine 5 mg 1-09 TABLET BY ity o f tablet 00:00: MOUTH [place] 00 EVERY 8 Medical HOURS Branch NEEDED econazole 2020-09 Yes [id number] Apply to [facility] nitrate 1 % 09 area(s) 2 ity of cream 00:00: (two) [place] 00 times Medical daily. Branch albuterol 2020-09 Yes [id number] 2{puff} Inhale 2 [facility] (PROAIR 1-09 Puffs ity of HFA) 90 00:00: every 6 [place] mcg/actuati 00 (six) Medical on inhaler hours as Branc h needed for Wheezing or Shortness of Breath. triamcinolo 2020-09 Yes [id number] Apply to [facility] ne 0.025 % 10-04 area(s) 3 ity of ointment 00:00: (three) [place] 00 times Medical daily. For Branch itching diltiazem 2020-09 Yes [id number] 120mg Take 1 [facility] (CARTIA XT) 10-04 capsule by it y of 120 mg 24 00:00: mouth 2 [place] hr capsule 00 (two) Medical times Branch daily. cyanocobala 2020-09 Yes [id number] 1000ug 1 mL by [facility] min 1,000 09 Intramuscu ity of mcg/mL 00:00: lar route [place] injection 00 every 2 Medical (two) Branch weeks. levothyroxi 2020-09 Yes [id number] 50ug Take 1 [facility] ne 50 mcg 10-04 tablet by ity o f tablet 00:00: mouth [place] 00 every Medical morning. Branch fluticasone 2020-09 Yes [id number] 2{puff} Inhale 2 [facility] propionate 09 Puffs ity of (FLOVENT 00:00: every 12 [place] HFA) 110 00 (twelve) Medical mcg/actuati hours. Branch on inhaler Rinse mouth after each use. levalbutero 2020-09 Yes [id number] .63mg Inhale [facility] l 0.63 mg/3 -09 0.63 mg 3 ity of mL 00:00: (three) [place] nebulizer 00 times Medical solution daily as Branch needed for Wheezing or Shortness of Breath. losartan 50 2020-09 Yes [id number] 50mg Take 1 [facility] mg tablet 09 tablet by ity o f 00:00: mouth 2 [place] 00 (two) Medical times Branch daily. clotrimazol 2020-09 Yes [id number] Apply to [facility] e-betametha 10-04 area(s) 2 ity of sone cream 00:00: (two) [place] 00 times Medical daily. Branch cyclobenzap 2020-09 Yes [id number] TAKE 1 [facility] rine 5 mg -09 TABLET BY ity o f tablet 00:00: MOUTH [place] 00 EVERY 8 Medical HOURS Branch NEEDED econazole 2020-09 Yes [id number] Apply to [facility] nitrate 1 % 10-04 area(s) 2 ity of cream 00:00: (two) [place] 00 times Medical daily. Branch albuterol 2020-09 Yes [id number] 2{puff} Inhale 2 [facility] (PROAIR 1-09 Puffs ity of HFA) 90 00:00: every 6 [place] mcg/actuati 00 (six) Medical on inhaler hours as Branc h needed for Wheezing or Shortness of Breath. triamcinolo 2020-09 Yes [id number] Apply to [facility] ne 0.025 % -09 area(s) 3 ity of ointment 00:00: (three) [place] 00 times Medical daily. For Branch itching diltiazem 2020-09 Yes [id number] 120mg Take 1 [facility] (CARTIA XT) 09 capsule by it y of 120 mg 24 00:00: mouth 2 [place] hr capsule 00 (two) Medical times Branch daily. cyanocobala 2020-09 Yes [id number] 1000ug 1 mL by [facility] min 1,000 -09 Intramuscu ity of mcg/mL 00:00: lar route [place] injection 00 every 2 Medical (two) Branch weeks. levothyroxi 2020-09 Yes [id number] 50ug Take 1 [facility] ne 50 mcg -09 tablet by ity o f tablet 00:00: mouth [place] 00 every Medical morning. Branch fluticasone 2020-09 Yes [id number] 2{puff} Inhale 2 [facility] propionate 1-09 Puffs ity of (FLOVENT 00:00: every 12 [place] HFA) 110 00 (twelve) Medical mcg/actuati hours. Branch on inhaler Rinse mouth after each use. levalbutero 2020-09 Yes [id number] .63mg Inhale [facility] l 0.63 mg/3 1-09 0.63 mg 3 ity of mL 00:00: (three) [place] nebulizer 00 times Medical solution daily as Branch needed for Wheezing or Shortness of Breath. losartan 50 2020-09 Yes [id number] 50mg Take 1 [facility] mg tablet -09 tablet by ity o f 00:00: mouth 2 [place] 00 (two) Medical times Branch daily. clotrimazol 2020-09 Yes [id number] Apply to [facility] e-betametha -09 area(s) 2 ity of sone cream 00:00: (two) [place] 00 times Medical daily. Branch cyclobenzap 2020-09 Yes [id number] TAKE 1 [facility] rine 5 mg 1-09 TABLET BY ity o f tablet 00:00: MOUTH [place] 00 EVERY 8 Medical HOURS Branch NEEDED econazole 2020-09 Yes [id number] Apply to [facility] nitrate 1 % 1-09 area(s) 2 ity of cream 00:00: (two) [place] 00 times Medical daily. Branch albuterol 2020-09 Yes [id number] 2{puff} Inhale 2 [facility] (PROAIR 1-09 Puffs ity of HFA) 90 00:00: every 6 [place] mcg/actuati 00 (six) Medical on inhaler hours as Branc h needed for Wheezing or Shortness of Breath. triamcinolo 2020-09 Yes [id number] Apply to [facility] ne 0.025 % 1-09 area(s) 3 ity of ointment 00:00: (three) [place] 00 times Medical daily. For Branch itching diltiazem 2020-09 Yes [id number] 120mg Take 1 [facility] (CARTIA XT) 1-09 capsule by it y of 120 mg 24 00:00: mouth 2 [place] hr capsule 00 (two) Medical times Branch daily. cyanocobala 2020-09 Yes [id number] 1000ug 1 mL by [facility] min 1,000 1-09 Intramuscu ity of mcg/mL 00:00: lar route [place] injection 00 every 2 Medical (two) Branch weeks. levothyroxi 2020-09 Yes [id number] 50ug Take 1 [facility] ne 50 mcg 1-09 tablet by ity o f tablet 00:00: mouth [place] 00 every Medical morning. Branch fluticasone 2020-09 Yes [id number] 2{puff} Inhale 2 [facility] propionate 1-09 Puffs ity of (FLOVENT 00:00: every 12 [place] HFA) 110 00 (twelve) Medical mcg/actuati hours. Branch on inhaler Rinse mouth after each use. levalbutero 2020-09 Yes [id number] .63mg Inhale [facility] l 0.63 mg/3 1-09 0.63 mg 3 ity of mL 00:00: (three) [place] nebulizer 00 times Medical solution daily as Branch needed for Wheezing or Shortness of Breath. losartan 50 2020-09 Yes [id number] 50mg Take 1 [facility] mg tablet 1-09 tablet by ity o f 00:00: mouth 2 [place] 00 (two) Medical times Branch daily. clotrimazol 2020-09 Yes [id number] Apply to [facility] e-betametha 09 area(s) 2 ity of sone cream 00:00: (two) [place] 00 times Medical daily. Branch cyclobenzap 2020-09 Yes [id number] TAKE 1 [facility] rine 5 mg -09 TABLET BY ity o f tablet 00:00: MOUTH [place] 00 EVERY 8 Medical HOURS Branch NEEDED econazole 2020-09 Yes [id number] Apply to [facility] nitrate 1 % 09 area(s) 2 ity of cream 00:00: (two) [place] 00 times Medical daily. Branch albuterol 2020-09 Yes [id number] 2{puff} Inhale 2 [facility] (PROAIR 1-09 Puffs ity of HFA) 90 00:00: every 6 [place] mcg/actuati 00 (six) Medical on inhaler hours as Branc h needed for Wheezing or Shortness of Breath. triamcinolo 2020-09 Yes [id number] Apply to [facility] ne 0.025 % 10-04 area(s) 3 ity of ointment 00:00: (three) [place] 00 times Medical daily. For Branch itching diltiazem 2020-09 Yes [id number] 120mg Take 1 [facility] (CARTIA XT) 10-04 capsule by it y of 120 mg 24 00:00: mouth 2 [place] hr capsule 00 (two) Medical times Branch daily. cyanocobala 2020-09 Yes [id number] 1000ug 1 mL by [facility] min 1,000 -09 Intramuscu ity of mcg/mL 00:00: lar route [place] injection 00 every 2 Medical (two) Branch weeks. levothyroxi 2020-09 Yes [id number] 50ug Take 1 [facility] ne 50 mcg -09 tablet by ity o f tablet 00:00: mouth [place] 00 every Medical morning. Branch fluticasone 2020-09 Yes [id number] 2{puff} Inhale 2 [facility] propionate 1-09 Puffs ity of (FLOVENT 00:00: every 12 [place] HFA) 110 00 (twelve) Medical mcg/actuati hours. Branch on inhaler Rinse mouth after each use. levalbutero 2020-09 Yes [id number] .63mg Inhale [facility] l 0.63 mg/3 1-09 0.63 mg 3 ity of mL 00:00: (three) [place] nebulizer 00 times Medical solution daily as Branch needed for Wheezing or Shortness of Breath. losartan 50 2020-09 Yes [id number] 50mg Take 1 [facility] mg tablet -09 tablet by ity o f 00:00: mouth 2 [place] 00 (two) Medical times Branch daily. clotrimazol 2020-09 Yes [id number] Apply to [facility] e-betametha 10-04 area(s) 2 ity of sone cream 00:00: (two) [place] 00 times Medical daily. Branch cyclobenzap 2020-09 Yes [id number] TAKE 1 [facility] rine 5 mg 10-04 TABLET BY ity o f tablet 00:00: MOUTH [place] 00 EVERY 8 Medical HOURS Branch NEEDED econazole 2020-09 Yes [id number] Apply to [facility] nitrate 1 % 10-04 area(s) 2 ity of cream 00:00: (two) [place] 00 times Medical daily. Branch albuterol 2020-09 Yes [id number] 2{puff} Inhale 2 [facility] (PROAIR -09 Puffs ity of HFA) 90 00:00: every 6 [place] mcg/actuati 00 (six) Medical on inhaler hours as Branc h needed for Wheezing or Shortness of Breath. triamcinolo 2020-09 Yes [id number] Apply to [facility] ne 0.025 % 10-04 area(s) 3 ity of ointment 00:00: (three) [place] 00 times Medical daily. For Branch itching diltiazem 2020-09 Yes [id number] 120mg Take 1 [facility] (CARTIA XT) 10-04 capsule by it y of 120 mg 24 00:00: mouth 2 [place] hr capsule 00 (two) Medical times Branch daily. cyanocobala 2020-09 Yes [id number] 1000ug 1 mL by [facility] min 1,000 -09 Intramuscu ity of mcg/mL 00:00: lar route [place] injection 00 every 2 Medical (two) Branch weeks. levothyroxi 2020-09 Yes [id number] 50ug Take 1 [facility] ne 50 mcg -09 tablet by ity o f tablet 00:00: mouth [place] 00 every Medical morning. Branch fluticasone 2020-09 Yes [id number] 2{puff} Inhale 2 [facility] propionate 1-09 Puffs ity of (FLOVENT 00:00: every 12 [place] HFA) 110 00 (twelve) Medical mcg/actuati hours. Branch on inhaler Rinse mouth after each use. levalbutero 2020-09 Yes [id number] .63mg Inhale [facility] l 0.63 mg/3 1-09 0.63 mg 3 ity of mL 00:00: (three) [place] nebulizer 00 times Medical solution daily as Branch needed for Wheezing or Shortness of Breath. losartan 50 2020-09 Yes [id number] 50mg Take 1 [facility] mg tablet -09 tablet by ity o f 00:00: mouth 2 [place] 00 (two) Medical times Branch daily. clotrimazol 2020-09 Yes [id number] Apply to [facility] e-betametha -09 area(s) 2 ity of sone cream 00:00: (two) [place] 00 times Medical daily. Branch cyclobenzap 2020-09 Yes [id number] TAKE 1 [facility] rine 5 mg -09 TABLET BY ity o f tablet 00:00: MOUTH [place] 00 EVERY 8 Medical HOURS Branch NEEDED econazole 2020-09 Yes [id number] Apply to [facility] nitrate 1 % 09 area(s) 2 ity of cream 00:00: (two) [place] 00 times Medical daily. Branch albuterol 2020-09 Yes [id number] 2{puff} Inhale 2 [facility] (PROAIR 1-09 Puffs ity of HFA) 90 00:00: every 6 [place] mcg/actuati 00 (six) Medical on inhaler hours as Branc h needed for Wheezing or Shortness of Breath. triamcinolo 2020-09 Yes [id number] Apply to [facility] ne 0.025 % 09 area(s) 3 ity of ointment 00:00: (three) [place] 00 times Medical daily. For Branch itching diltiazem 2020-09 Yes [id number] 120mg Take 1 [facility] (CARTIA XT) -09 capsule by it y of 120 mg 24 00:00: mouth 2 [place] hr capsule 00 (two) Medical times Branch daily. cyanocobala 2020-09 Yes [id number] 1000ug 1 mL by [facility] min 1,000 -09 Intramuscu ity of mcg/mL 00:00: lar route [place] injection 00 every 2 Medical (two) Branch weeks. levothyroxi 2020-09 Yes [id number] 50ug Take 1 [facility] ne 50 mcg 1-09 tablet by ity o f tablet 00:00: mouth [place] 00 every Medical morning. Branch fluticasone 2020-09 Yes [id number] 2{puff} Inhale 2 [facility] propionate 1-09 Puffs ity of (FLOVENT 00:00: every 12 [place] HFA) 110 00 (twelve) Medical mcg/actuati hours. Branch on inhaler Rinse mouth after each use. levalbutero 2020-09 Yes [id number] .63mg Inhale [facility] l 0.63 mg/3 1-09 0.63 mg 3 ity of mL 00:00: (three) [place] nebulizer 00 times Medical solution daily as Branch needed for Wheezing or Shortness of Breath. losartan 50 2020-09 Yes [id number] 50mg Take 1 [facility] mg tablet 1-09 tablet by ity o f 00:00: mouth 2 [place] 00 (two) Medical times Branch daily. clotrimazol 2020-09 Yes [id number] Apply to [facility] e-betametha 1-09 area(s) 2 ity of sone cream 00:00: (two) [place] 00 times Medical daily. Branch cyclobenzap 2020-09 Yes [id number] TAKE 1 [facility] rine 5 mg 1-09 TABLET BY ity o f tablet 00:00: MOUTH [place] 00 EVERY 8 Medical HOURS Branch NEEDED econazole 2020-09 Yes [id number] Apply to [facility] nitrate 1 % -09 area(s) 2 ity of cream 00:00: (two) [place] 00 times Medical daily. Branch albuterol 2020-09 Yes [id number] 2{puff} Inhale 2 [facility] (PROAIR 1-09 Puffs ity of HFA) 90 00:00: every 6 [place] mcg/actuati 00 (six) Medical on inhaler hours as Branc h needed for Wheezing or Shortness of Breath. triamcinolo 2020-09 Yes [id number] Apply to [facility] ne 0.025 % 1-09 area(s) 3 ity of ointment 00:00: (three) [place] 00 times Medical daily. For Branch itching diltiazem 2020-09 Yes [id number] 120mg Take 1 [facility] (CARTIA XT) 1-09 capsule by it y of 120 mg 24 00:00: mouth 2 [place] hr capsule 00 (two) Medical times Branch daily. cyanocobala 2020-09 Yes [id number] 1000ug 1 mL by [facility] min 1,000 1-09 Intramuscu ity of mcg/mL 00:00: lar route [place] injection 00 every 2 Medical (two) Branch weeks. levothyroxi 2020-09 Yes [id number] 50ug Take 1 [facility] ne 50 mcg -09 tablet by ity o f tablet 00:00: mouth [place] 00 every Medical morning. Branch fluticasone 2020-09 Yes [id number] 2{puff} Inhale 2 [facility] propionate 1-09 Puffs ity of (FLOVENT 00:00: every 12 [place] HFA) 110 00 (twelve) Medical mcg/actuati hours. Branch on inhaler Rinse mouth after each use. levalbutero 2020-09 Yes [id number] .63mg Inhale [facility] l 0.63 mg/3 -09 0.63 mg 3 ity of mL 00:00: (three) [place] nebulizer 00 times Medical solution daily as Branch needed for Wheezing or Shortness of Breath. losartan 50 2020-09 Yes [id number] 50mg Take 1 [facility] mg tablet -09 tablet by ity o f 00:00: mouth 2 [place] 00 (two) Medical times Branch daily. clotrimazol 2020-09 Yes [id number] Apply to [facility] e-betametha 10-04 area(s) 2 ity of sone cream 00:00: (two) [place] 00 times Medical daily. Branch cyclobenzap 2020-09 Yes [id number] TAKE 1 [facility] rine 5 mg -09 TABLET BY ity o f tablet 00:00: MOUTH [place] 00 EVERY 8 Medical HOURS Branch NEEDED econazole 2020-09 Yes [id number] Apply to [facility] nitrate 1 % 09 area(s) 2 ity of cream 00:00: (two) [place] 00 times Medical daily. Branch albuterol 2020-09 Yes [id number] 2{puff} Inhale 2 [facility] (PROAIR 1-09 Puffs ity of HFA) 90 00:00: every 6 [place] mcg/actuati 00 (six) Medical on inhaler hours as Branc h needed for Wheezing or Shortness of Breath. triamcinolo 2020-09 Yes [id number] Apply to [facility] ne 0.025 % -09 area(s) 3 ity of ointment 00:00: (three) [place] 00 times Medical daily. For Branch itching diltiazem 2020-09 Yes [id number] 120mg Take 1 [facility] (CARTIA XT) 1-09 capsule by it y of 120 mg 24 00:00: mouth 2 [place] hr capsule 00 (two) Medical times Branch daily. cyanocobala 2020-09 Yes [id number] 1000ug 1 mL by [facility] min 1,000 -09 Intramuscu ity of mcg/mL 00:00: lar route [place] injection 00 every 2 Medical (two) Branch weeks. levothyroxi 2020-09 Yes [id number] 50ug Take 1 [facility] ne 50 mcg -09 tablet by ity o f tablet 00:00: mouth [place] 00 every Medical morning. Branch fluticasone 2020-09 Yes [id number] 2{puff} Inhale 2 [facility] propionate 1-09 Puffs ity of (FLOVENT 00:00: every 12 [place] HFA) 110 00 (twelve) Medical mcg/actuati hours. Branch on inhaler Rinse mouth after each use. levalbutero 2020-09 Yes [id number] .63mg Inhale [facility] l 0.63 mg/3 1-09 0.63 mg 3 ity of mL 00:00: (three) [place] nebulizer 00 times Medical solution daily as Branch needed for Wheezing or Shortness of Breath. losartan 50 2020-09 Yes [id number] 50mg Take 1 [facility] mg tablet -09 tablet by ity o f 00:00: mouth 2 [place] 00 (two) Medical times Branch daily. clotrimazol 2020-09 Yes [id number] Apply to [facility] e-betametha -09 area(s) 2 ity of sone cream 00:00: (two) [place] 00 times Medical daily. Branch cyclobenzap 2020-09 Yes [id number] TAKE 1 [facility] rine 5 mg 1-09 TABLET BY ity o f tablet 00:00: MOUTH [place] 00 EVERY 8 Medical HOURS Branch NEEDED econazole 2020-09 Yes [id number] Apply to [facility] nitrate 1 % -09 area(s) 2 ity of cream 00:00: (two) [place] 00 times Medical daily. Branch albuterol 2020-09 Yes [id number] 2{puff} Inhale 2 [facility] (PROAIR 1-09 Puffs ity of HFA) 90 00:00: every 6 [place] mcg/actuati 00 (six) Medical on inhaler hours as Branc h needed for Wheezing or Shortness of Breath. triamcinolo 2020-09 Yes [id number] Apply to [facility] ne 0.025 % -09 area(s) 3 ity of ointment 00:00: (three) [place] 00 times Medical daily. For Branch itching diltiazem 2020-09 Yes [id number] 120mg Take 1 [facility] (CARTIA XT) -09 capsule by it y of 120 mg 24 00:00: mouth 2 [place] hr capsule 00 (two) Medical times Branch daily. cyanocobala 2020-09 Yes [id number] 1000ug 1 mL by [facility] min 1,000 1-09 Intramuscu ity of mcg/mL 00:00: lar route [place] injection 00 every 2 Medical (two) Branch weeks. levothyroxi 2020-09 Yes [id number] 50ug Take 1 [facility] ne 50 mcg -09 tablet by ity o f tablet 00:00: mouth [place] 00 every Medical morning. Branch fluticasone 2020-09 Yes [id number] 2{puff} Inhale 2 [facility] propionate 1-09 Puffs ity of (FLOVENT 00:00: every 12 [place] HFA) 110 00 (twelve) Medical mcg/actuati hours. Branch on inhaler Rinse mouth after each use. levalbutero 2020-09 Yes [id number] .63mg Inhale [facility] l 0.63 mg/3 1-09 0.63 mg 3 ity of mL 00:00: (three) [place] nebulizer 00 times Medical solution daily as Branch needed for Wheezing or Shortness of Breath. losartan 50 2020-09 Yes [id number] 50mg Take 1 [facility] mg tablet 1-09 tablet by ity o f 00:00: mouth 2 [place] 00 (two) Medical times Branch daily. clotrimazol 2020-09 Yes [id number] Apply to [facility] e-betametha -09 area(s) 2 ity of sone cream 00:00: (two) [place] 00 times Medical daily. Branch cyclobenzap 2020-09 Yes [id number] TAKE 1 [facility] rine 5 mg 10-04 TABLET BY ity o f tablet 00:00: MOUTH [place] 00 EVERY 8 Medical HOURS Branch NEEDED econazole 2020-09 Yes [id number] Apply to [facility] nitrate 1 % 10-04 area(s) 2 ity of cream 00:00: (two) [place] 00 times Medical daily. Branch albuterol 2020-09 Yes [id number] 2{puff} Inhale 2 [facility] (PROAIR 10-04 Puffs ity of HFA) 90 00:00: every 6 [place] mcg/actuati 00 (six) Medical on inhaler hours as Branc h needed for Wheezing or Shortness of Breath. triamcinolo 2020-09 Yes [id number] Apply to [facility] ne 0.025 % 10-04 area(s) 3 ity of ointment 00:00: (three) [place] 00 times Medical daily. For Branch itching diltiazem 2020-09 Yes [id number] 120mg Take 1 [facility] (CARTIA XT) 10-04 capsule by it y of 120 mg 24 00:00: mouth 2 [place] hr capsule 00 (two) Medical times Branch daily. fluticasone 2020-09- No [id number] 2{puff} Inhale 2 [facility] propionate 10-04 Puffs ity of (FLOVENT 00:00: 00:00 every 12 [place] HFA) 110 00 :00 (twelve) Medical mcg/actuati hours. Branch on inhaler Rinse mouth after each use. clotrimazol 2020-09- No [id number] Apply to [facility] e-betametha 10-04 area(s) 2 it y of sone cream 00:00: 00:00 (two) [place] 00 :00 times Medical daily. Branch econazole 2020-09- No [id number] Apply to [facility] nitrate 1 % 10-04 area(s) 2 it y of cream 00:00: 00:00 (two) [place] 00 :00 times Medical daily. Branch triamcinolo 2020-09- No [id number] Apply to [facility] ne 0.025 % 10-04 area(s) 3 ity of ointment 00:00: 00:00 (three) [place] 00 :00 times Medical daily. For Branch itching fluticasone 2020-09- No [id number] 2{puff} Inhale 2 [facility] propionate 10-04 Puffs ity of (FLOVENT 00:00: 00:00 [place] 12 [place] HFA[place] 110 00 :00 (twelve) Medical mcg/actuati hours. Branch on inhaler Rinse mouth after each use. clotrimazol 2020-09- No [id number] Apply to Univers e-betametha 10-04 area(s) 2 it y of sone cream 00:00: 00:00 (two) [place] 00 :00 times Medical daily. Branch econazole 2020-09- No [id number] Apply to [facility] nitrate 1 % 10-04 area(s) 2 it y of cream 00:00: 00:00 (two) [place] 00 :00 times Medical daily. Branch triamcinolo 2020-09- No [id number] Apply to [facility] ne 0.025 % 10-04 area(s) 3 ity of ointment 00:00: 00:00 (three) [place] 00 :00 times Medical daily. For Branch itching levothyroxi 2020-09- No [id number] 50ug Take 1 [facility] ne 50 mcg 10-04 tablet by ity of tablet 00:00: 00:00 mouth [place] 00 :00 every Medical morning. Branch losartan 50 2020-09- No [id number] 50mg Take 1 [facility] mg tablet 10-04 tablet by ity of 00:00: 00:00 mouth 2 [place] 00 :00 (two) Medical times Branch daily. diltiazem 2020-09- No [id number] 120mg Take 1 [facility] (CARTIA XT) 10-04 capsule by i ty of 120 mg 24 00:00: 00:00 mouth 2 [place] hr capsule 00 :00 (two) Medical times Branch daily. rosuvastati 2020-09- No [id number] 10mg Take 1 [facility] n 10 mg 10-04 tablet by ity of tablet 00:00: 00:00 mouth at [place] 00 :00 bedtime. Medical Branch rosuvastati 2020- 2022- No [id number] 10mg Take 1 [facility] n 10 mg 1-09 06-08 tablet by ity of tablet 00:00: [...] [place] 00 Medical Branch FERROUS 2018-0 Yes [id number] TAKE ONE Uni vers SULFATE 325 8-13 TABLET BY ity of mg (65 mg 00:00: MOUTH [place] iron) 00 THREE Medical tablet TIMES Branch DAILY WITH MEALS FERROUS 0 Yes [id number] TAKE ONE Uni vers SULFATE 325 8-13 TABLET BY ity of mg (65 mg 00:00: MOUTH [place] iron) 00 THREE Medical tablet TIMES Branch DAILY WITH MEALS FERROUS 20180 Yes [id number] TAKE ONE Uni vers SULFATE 325 8-13 TABLET BY ity of mg (65 mg 00:00: MOUTH [place] iron) 00 THREE Medical tablet TIMES Branch DAILY WITH MEALS FERROUS [id number] Yes [id number] TAKE ONE Uni vers SULFATE 325 8-13 TABLET BY ity of mg (65 mg 00:00: MOUTH [place] iron) 00 THREE Medical tablet TIMES Branch DAILY WITH MEALS FERROUS Yes [id number] TAKE ONE Uni vers SULFATE 325 8-13 TABLET BY ity of mg (65 mg 00:00: MOUTH [place] iron) 00 THREE Medical tablet TIMES Branch DAILY WITH MEALS FERROUS Yes [id number] TAKE ONE Uni vers SULFATE 325 8-13 TABLET BY ity of mg (65 mg 00:00: MOUTH [place] iron) 00 THREE Medical tablet TIMES Branch DAILY WITH MEALS FERROUS Yes [id number] TAKE ONE [facility] vers SULFATE 325 8-13 TABLET BY ity of mg (65 mg 00:00: MOUTH [place] iron) 00 THREE Medical tablet TIMES Branch DAILY WITH MEALS FERROUS Yes [id number] TAKE ONE Uni vers SULFATE 325 8-13 TABLET BY ity of mg (65 mg 00:00: MOUTH [place] iron) 00 THREE Medical tablet TIMES Branch DAILY WITH MEALS FERROUS Yes [id number] TAKE ONE [facility] vers SULFATE 325 8-13 TABLET BY ity of mg (65 mg 00:00: MOUTH [place] iron) 00 THREE Medical tablet TIMES Branch DAILY WITH MEALS FERROUS Yes [id number] TAKE ONE [facility] vers SULFATE 325 8-13 TABLET BY ity of mg (65 mg 00:00: MOUTH [place] iron) 00 THREE Medical tablet TIMES Branch DAILY WITH MEALS FERROUS Yes [id number] TAKE ONE [facility] vers SULFATE 325 8-13 TABLET BY ity of mg (65 mg 00:00: MOUTH [place] iron) 00 THREE Medical tablet TIMES Branch DAILY WITH MEALS FERROUS Yes [id number] TAKE ONE [facility] vers SULFATE 325 8-13 TABLET BY ity of mg (65 mg 00:00: MOUTH [place] iron) 00 THREE Medical tablet TIMES Branch DAILY WITH MEALS FERROUS Yes [id number] TAKE ONE Uni vers SULFATE 325 8-13 TABLET BY ity of mg (65 mg 00:00: MOUTH [place] iron) 00 THREE Medical tablet TIMES Branch DAILY WITH MEALS FERROUS Yes [id number] TAKE ONE Uni vers SULFATE 325 8-13 TABLET BY ity of mg (65 mg 00:00: MOUTH [place] iron) 00 THREE Medical tablet TIMES Branch DAILY WITH MEALS FERROUS Yes [id number] TAKE ONE [facility] vers SULFATE 325 8-13 TABLET BY ity of mg (65 mg 00:00: MOUTH [place] iron) 00 THREE Medical tablet TIMES Branch DAILY WITH MEALS FERROUS Yes [id number] TAKE ONE [facility] vers SULFATE 325 8-13 TABLET BY ity of mg (65 mg 00:00: MOUTH [place] iron) 00 THREE Medical tablet TIMES Branch DAILY WITH MEALS FERROUS Yes [id number] TAKE ONE [facility] vers SULFATE 325 8-13 TABLET BY ity of mg (65 mg 00:00: MOUTH [place] iron) 00 THREE Medical tablet TIMES Branch DAILY WITH MEALS FERROUS Yes [id number] TAKE ONE [facility] vers SULFATE 325 8-13 TABLET BY ity of mg (65 mg 00:00: MOUTH [place] iron) 00 THREE Medical tablet TIMES Branch DAILY WITH MEALS FERROUS Yes [id number] TAKE ONE [facility] vers SULFATE 325 8-13 TABLET BY ity of mg (65 mg 00:00: MOUTH [place] iron) 00 THREE Medical tablet TIMES Branch DAILY WITH MEALS FERROUS Yes [id number] TAKE ONE [facility] vers SULFATE 325 8-13 TABLET BY ity of mg (65 mg 00:00: MOUTH [place] iron) 00 THREE Medical tablet TIMES Branch DAILY WITH MEALS FERROUS Yes [id number] TAKE ONE [facility] vers SULFATE 325 8-13 TABLET BY ity of mg (65 mg 00:00: MOUTH [place] iron) 00 THREE Medical tablet TIMES Branch DAILY WITH MEALS FERROUS Yes [id number] TAKE ONE [facility] vers SULFATE 325 8-13 TABLET BY ity of mg (65 mg 00:00: MOUTH [place] iron) 00 THREE Medical tablet TIMES Branch DAILY WITH MEALS FERROUS Yes [id number] TAKE ONE [facility] vers SULFATE 325 8-13 TABLET BY ity of mg (65 mg 00:00: MOUTH [place] iron) 00 THREE Medical tablet TIMES Branch DAILY WITH MEALS FERROUS Yes [id number] TAKE ONE [facility] vers SULFATE 325 8-13 TABLET BY ity of mg (65 mg 00:00: MOUTH [place] iron) 00 THREE Medical tablet TIMES Branch DAILY WITH MEALS FERROUS Yes [id number] TAKE ONE [facility] vers SULFATE 325 8-13 TABLET BY ity of mg (65 mg 00:00: MOUTH [place] iron) 00 THREE Medical tablet TIMES Branch DAILY WITH MEALS FERROUS Yes [id number] TAKE ONE [facility] vers SULFATE 325 8-13 TABLET BY ity of mg (65 mg 00:00: MOUTH [place] iron) 00 THREE Medical tablet TIMES Branch DAILY WITH MEALS FERROUS Yes [id number] TAKE ONE [facility] vers SULFATE 325 8-13 TABLET BY ity of mg (65 mg 00:00: MOUTH [place] iron) 00 THREE Medical tablet TIMES Branch DAILY WITH MEALS FERROUS Yes [id number] TAKE ONE Uni vers SULFATE 325 8-13 TABLET BY ity of mg (65 mg 00:00: MOUTH [place] iron) 00 THREE Medical tablet TIMES Branch DAILY WITH MEALS FERROUS Yes [id number] TAKE ONE [facility] vers SULFATE 325 8-13 TABLET BY ity of mg (65 mg 00:00: MOUTH [place] iron) 00 THREE Medical tablet TIMES Branch DAILY WITH MEALS FERROUS Yes [id number] TAKE ONE [facility] vers SULFATE 325 8-13 TABLET BY ity of mg (65 mg 00:00: MOUTH [place] iron) 00 THREE Medical tablet TIMES Branch DAILY WITH MEALS FERROUS Yes [id number] TAKE ONE [facility] vers SULFATE 325 8-13 TABLET BY ity of mg (65 mg 00:00: MOUTH [place] iron) 00 THREE Medical tablet TIMES Branch DAILY WITH MEALS FERROUS Yes [id number] TAKE ONE [facility] vers SULFATE 325 8-13 TABLET BY ity of mg (65 mg 00:00: MOUTH [place] iron) 00 THREE Medical tablet TIMES Branch DAILY WITH MEALS FERROUS Yes [id number] TAKE ONE [facility] vers SULFATE 325 8-13 TABLET BY ity of mg (65 mg 00:00: MOUTH [place] iron) 00 THREE Medical tablet TIMES Branch DAILY WITH MEALS FERROUS Yes [id number] TAKE ONE Uni vers SULFATE 325 8-13 TABLET BY ity of mg (65 mg 00:00: MOUTH [place] iron) 00 THREE Medical tablet TIMES Branch DAILY WITH MEALS FERROUS Yes [id number] TAKE ONE Uni vers SULFATE 325 8-13 TABLET BY ity of mg (65 mg 00:00: MOUTH [place] iron) 00 THREE Medical tablet TIMES Branch DAILY WITH MEALS FERROUS Yes [id number] TAKE ONE Uni vers SULFATE 325 8-13 TABLET BY ity of mg (65 mg 00:00: MOUTH [place] iron) 00 THREE Medical tablet TIMES Branch DAILY WITH MEALS FERROUS Yes [id number] TAKE ONE Uni vers SULFATE 325 8-13 TABLET BY ity of mg (65 mg 00:00: MOUTH [place] iron) 00 THREE Medical tablet TIMES Branch DAILY WITH MEALS FERROUS Yes [id number] TAKE ONE Uni vers SULFATE 325 8-13 TABLET BY ity of mg (65 mg 00:00: MOUTH [place] iron) 00 THREE Medical tablet TIMES Branch DAILY WITH MEALS FERROUS Yes [id number] TAKE ONE Uni vers SULFATE 325 8-13 TABLET BY ity of mg (65 mg 00:00: MOUTH [place] iron) 00 THREE Medical tablet TIMES Branch DAILY WITH MEALS FERROUS Yes [id number] TAKE ONE Uni vers SULFATE 325 8-13 TABLET BY ity of mg (65 mg 00:00: MOUTH [place] iron) 00 THREE Medical tablet TIMES Branch DAILY WITH MEALS FERROUS Yes [id number] TAKE ONE Uni vers SULFATE 325 8-13 TABLET BY ity of mg (65 mg 00:00: MOUTH [place] iron) 00 THREE Medical tablet TIMES Branch DAILY WITH MEALS FERROUS Yes [id number] TAKE ONE [facility] vers SULFATE 325 8-13 TABLET BY ity of mg (65 mg 00:00: MOUTH [place] iron) 00 THREE Medical tablet TIMES Branch DAILY WITH MEALS FERROUS Yes [id number] TAKE ONE Uni vers SULFATE 325 8-13 TABLET BY ity of mg (65 mg 00:00: MOUTH [place] iron) 00 THREE Medical tablet TIMES Branch DAILY WITH MEALS FERROUS Yes [id number] TAKE ONE Uni vers SULFATE 325 8-13 TABLET BY ity of mg (65 mg 00:00: MOUTH [place] iron) 00 THREE Medical tablet TIMES Branch DAILY WITH MEALS FERROUS Yes [id number] TAKE ONE Uni vers SULFATE 325 8-13 TABLET BY ity of mg (65 mg 00:00: MOUTH [place] iron) 00 THREE Medical tablet TIMES Branch DAILY WITH MEALS FERROUS Yes [id number] TAKE ONE Uni vers SULFATE 325 8-13 TABLET BY ity of mg (65 mg 00:00: MOUTH [place] iron) 00 THREE Medical tablet TIMES Branch DAILY WITH MEALS FERROUS Yes [id number] TAKE ONE Uni vers SULFATE 325 8-13 TABLET BY ity of mg (65 mg 00:00: MOUTH [place] iron) 00 THREE Medical tablet TIMES Branch DAILY WITH MEALS FERROUS Yes [id number] TAKE ONE Uni vers SULFATE 325 8-13 TABLET BY ity of mg (65 mg 00:00: MOUTH [place] iron) 00 THREE Medical tablet TIMES Branch DAILY WITH MEALS FERROUS Yes [id number] TAKE ONE Uni vers SULFATE 325 8-13 TABLET BY ity of mg (65 mg 00:00: MOUTH [place] iron) 00 THREE Medical tablet TIMES Branch DAILY WITH MEALS FERROUS Yes [id number] TAKE ONE Uni vers SULFATE 325 8-13 TABLET BY ity of mg (65 mg 00:00: MOUTH [place] iron) 00 THREE Medical tablet TIMES Branch DAILY WITH MEALS FERROUS Yes [id number] TAKE ONE Uni vers SULFATE 325 8-13 TABLET BY ity of mg (65 mg 00:00: MOUTH [place] iron) 00 THREE Medical tablet TIMES Branch DAILY WITH MEALS FERROUS Yes [id number] TAKE ONE Uni vers SULFATE 325 8-13 TABLET BY ity of mg (65 mg 00:00: MOUTH [place] iron) 00 THREE Medical tablet TIMES Branch DAILY WITH MEALS FERROUS Yes [id number] TAKE ONE Uni vers SULFATE 325 8-13 TABLET BY ity of mg (65 mg 00:00: MOUTH [place] iron) 00 THREE Medical tablet TIMES Branch DAILY WITH MEALS FERROUS Yes [id number] TAKE ONE Uni vers SULFATE 325 8-13 TABLET BY ity of mg (65 mg 00:00: MOUTH [place] iron) 00 THREE Medical tablet TIMES Branch DAILY WITH MEALS FERROUS Yes [id number] TAKE ONE Uni vers SULFATE 325 8-13 TABLET BY ity of mg (65 mg 00:00: MOUTH [place] iron) 00 THREE Medical tablet TIMES Branch DAILY WITH MEALS coQ10, Yes [id number] 1{capsu Take 1 U nivers ubiquinol, 1-16 le} capsule by ity of 100 mg Cap 00:00: mouth [place] 00 daily. [facility] Branch coQ10, Yes [id number] 1{capsu Take 1 U nivers ubiquinol, 1-16 le} capsule by ity of 100 mg Cap 00:00: mouth [place] 00 daily. [facility] Branch coQ10, Yes [id number] 1{capsu Take 1 U nivers ubiquinol, 1-16 le} capsule by ity of 100 mg Cap 00:00: mouth [place] 00 daily. [facility] Branch coQ10, Yes [id number] 1{capsu Take 1 U nivers ubiquinol, 1-16 le} capsule by ity of 100 mg Cap 00:00: mouth [place] 00 daily. [facility] Branch coQ10, Yes [id number] 1{capsu Take 1 U nivers ubiquinol, 1-16 le} capsule by ity of 100 mg Cap 00:00: mouth [place] 00 daily. [facility] Branch coQ10, Yes [id number] 1{capsu Take 1 U nivers ubiquinol, 1-16 le} capsule by ity of 100 mg Cap 00:00: mouth [place] 00 daily. [facility] Branch coQ10, Yes [id number] 1{capsu Take 1 U nivers ubiquinol, 1-16 le} capsule by ity of 100 mg Cap 00:00: mouth [place] 00 daily. Medical Branch coQ10, Yes [id number] 1{capsu Take 1 U nivers ubiquinol, 1-16 le} capsule by ity of 100 mg Cap 00:00: mouth [place] 00 daily. Medical Branch coQ10, Yes [id number] 1{capsu Take 1 U nivers ubiquinol, 1-16 le} capsule by ity of 100 mg Cap 00:00: mouth [place] 00 daily. Medical Branch coQ10, Yes [id number] 1{capsu Take 1 U nivers ubiquinol, 1-16 le} capsule by ity of 100 mg Cap 00:00: mouth [place] 00 daily. [facility] Branch coQ10, Yes [id number] 1{capsu Take 1 U nivers ubiquinol, 1-16 le} capsule by ity of 100 mg Cap 00:00: mouth [place] 00 daily. Medical Branch coQ10, Yes [id number] 1{capsu Take 1 U nivers ubiquinol, 1-16 le} capsule by ity of 100 mg Cap 00:00: mouth [place] 00 daily. Medical Branch coQ10, Yes [id number] 1{capsu Take 1 U nivers ubiquinol, 1-16 le} capsule by ity of 100 mg Cap 00:00: mouth [place] 00 daily. Medical Branch coQ10, Yes [id number] 1{capsu Take 1 U nivers ubiquinol, 1-16 le} capsule by ity of 100 mg Cap 00:00: mouth [place] 00 daily. Medical Branch coQ10, Yes [id number] 1{capsu Take 1 U nivers ubiquinol, 1-16 le} capsule by ity of 100 mg Cap 00:00: mouth [place] 00 daily. Medical Branch coQ10, Yes [id number] 1{capsu Take 1 U nivers ubiquinol, 1-16 le} capsule by ity of 100 mg Cap 00:00: mouth [place] 00 daily. Medical Branch coQ10, Yes [id number] 1{capsu Take 1 U nivers ubiquinol, 1-16 le} capsule by ity of 100 mg Cap 00:00: mouth [place] 00 daily. Medical Branch coQ10, Yes [id number] 1{capsu Take 1 U nivers ubiquinol, 1-16 le} capsule by ity of 100 mg Cap 00:00: mouth [place] 00 daily. Medical Branch coQ10, Yes [id number] 1{capsu Take 1 U nivers ubiquinol, 1-16 le} capsule by ity of 100 mg Cap 00:00: mouth [place] 00 daily. Medical Branch coQ10, Yes [id number] 1{capsu Take 1 U nivers ubiquinol, 1-16 le} capsule by ity of 100 mg Cap 00:00: mouth [place] 00 daily. Medical Branch coQ10, Yes [id number] 1{capsu Take 1 U nivers ubiquinol, 1-16 le} capsule by ity of 100 mg Cap 00:00: mouth [place] 00 daily. Medical Branch coQ10, Yes [id number] 1{capsu Take 1 U nivers ubiquinol, 1-16 le} capsule by ity of 100 mg Cap 00:00: mouth [place] 00 daily. Medical Branch coQ10, Yes [id number] 1{capsu Take 1 U nivers ubiquinol, 1-16 le} capsule by ity of 100 mg Cap 00:00: mouth [place] 00 daily. Medical Branch coQ10, Yes [id number] 1{capsu Take 1 U nivers ubiquinol, 1-16 le} capsule by ity of 100 mg Cap 00:00: mouth [place] 00 daily. Medical Branch coQ10, Yes [id number] 1{capsu Take 1 U nivers ubiquinol, 1-16 le} capsule by ity of 100 mg Cap 00:00: mouth [place] 00 daily. Medical Branch coQ10, Yes [id number] 1{capsu Take 1 U nivers ubiquinol, 1-16 le} capsule by ity of 100 mg Cap 00:00: mouth [place] 00 daily. Medical Branch coQ10, Yes [id number] 1{capsu Take 1 U nivers ubiquinol, 1-16 le} capsule by ity of 100 mg Cap 00:00: mouth [place] 00 daily. Medical Branch coQ10, Yes [id number] 1{capsu Take 1 U nivers ubiquinol, 1-16 le} capsule by ity of 100 mg Cap 00:00: mouth [place] 00 daily. Medical Branch coQ10, Yes [id number] 1{capsu Take 1 U nivers ubiquinol, 1-16 le} capsule by ity of 100 mg Cap 00:00: mouth [place] 00 daily. Medical Branch coQ10, Yes [id number] 1{capsu Take 1 U nivers ubiquinol, 1-16 le} capsule by ity of 100 mg Cap 00:00: mouth [place] 00 daily. Medical Branch coQ10, Yes [id number] 1{capsu Take 1 U nivers ubiquinol, 1-16 le} capsule by ity of 100 mg Cap 00:00: mouth [place] 00 daily. Medical Branch coQ10, Yes [id number] 1{capsu Take 1 U nivers ubiquinol, 1-16 le} capsule by ity of 100 mg Cap 00:00: mouth [place] 00 daily. Medical Branch coQ10, Yes [id number] 1{capsu Take 1 U nivers ubiquinol, 1-16 le} capsule by ity of 100 mg Cap 00:00: mouth [place] 00 daily. Medical Branch coQ10, Yes [id number] 1{capsu Take 1 U nivers ubiquinol, 1-16 le} capsule by ity of 100 mg Cap 00:00: mouth [place] 00 daily. Medical Branch coQ10, Yes [id number] 1{capsu Take 1 U nivers ubiquinol, 1-16 le} capsule by ity of 100 mg Cap 00:00: mouth [place] 00 daily. Medical Branch coQ10, Yes [id number] 1{capsu Take 1 U nivers ubiquinol, 1-16 le} capsule by ity of 100 mg Cap 00:00: mouth [place] 00 daily. Medical Branch coQ10, Yes [id number] 1{capsu Take 1 U nivers ubiquinol, 1-16 le} capsule by ity of 100 mg Cap 00:00: mouth [place] 00 daily. Medical Branch coQ10, Yes [id number] 1{capsu Take 1 U nivers ubiquinol, 1-16 le} capsule by ity of 100 mg Cap 00:00: mouth [place] 00 daily. Medical Branch coQ10, Yes [id number] 1{capsu Take 1 U nivers ubiquinol, 1-16 le} capsule by ity of 100 mg Cap 00:00: mouth [place] 00 daily. Medical Branch coQ10, Yes [id number] 1{capsu Take 1 U nivers ubiquinol, 1-16 le} capsule by ity of 100 mg Cap 00:00: mouth [place] 00 daily. [facility] Branch coQ10, Yes [id number] 1{capsu Take 1 U nivers ubiquinol, 1-16 le} capsule by ity of 100 mg Cap 00:00: mouth [place] 00 daily. [facility] Branch coQ10, Yes [id number] 1{capsu Take 1 U nivers ubiquinol, 1-16 le} capsule by ity of 100 mg Cap 00:00: mouth [place] 00 daily. [facility] Branch coQ10, Yes [id number] 1{capsu Take 1 U nivers ubiquinol, 1-16 le} capsule by ity of 100 mg Cap 00:00: mouth [place] 00 daily. [facility] Branch coQ10, Yes [id number] 1{capsu Take 1 U nivers ubiquinol, 1-16 le} capsule by ity of 100 mg Cap 00:00: mouth [place] 00 daily. [facility] Branch coQ10, Yes [id number] 1{capsu Take 1 U nivers ubiquinol, 1-16 le} capsule by ity of 100 mg Cap 00:00: mouth [place] 00 daily. [facility] Branch coQ10, Yes [id number] 1{capsu Take 1 U nivers ubiquinol, 1-16 le} capsule by ity of 100 mg Cap 00:00: mouth [place] 00 daily. [facility] Branch coQ10, Yes [id number] 1{capsu Take 1 U nivers ubiquinol, 1-16 le} capsule by ity of 100 mg Cap 00:00: mouth [place] 00 daily. [facility] Branch coQ10, Yes [id number] 1{capsu Take 1 U nivers ubiquinol, 1-16 le} capsule by ity of 100 mg Cap 00:00: mouth [place] 00 daily. [facility] Branch coQ10, Yes [id number] 1{capsu Take 1 U nivers ubiquinol, 1-16 le} capsule by ity of 100 mg Cap 00:00: mouth [place] 00 daily. [facility] Branch coQ10, Yes [id number] 1{capsu Take 1 U nivers ubiquinol, 1-16 le} capsule by ity of 100 mg Cap 00:00: mouth [place] 00 daily. Medical Branch coQ10, Yes [id number] 1{capsu Take 1 U nivers ubiquinol, 1-16 le} capsule by ity of 100 mg Cap 00:00: mouth [place] 00 daily. Medical Branch coQ10, Yes [id number] 1{capsu Take 1 U nivers ubiquinol, 1-16 le} capsule by ity of 100 mg Cap 00:00: mouth [place] 00 daily. Medical Branch coQ10, Yes [id number] 1{capsu Take 1 U nivers ubiquinol, 1-16 le} capsule by ity of 100 mg Cap 00:00: mouth [place] 00 daily. [facility] Branch coQ10, Yes [id number] 1{capsu Take 1 U nivers ubiquinol, 1-16 le} capsule by ity of 100 mg Cap 00:00: mouth [place] 00 daily. [facility] Branch coQ10, Yes [id number] 1{capsu Take 1 U nivers ubiquinol, 1-16 le} capsule by ity of 100 mg Cap 00:00: mouth [place] 00 daily. Medical Branch loratadine Yes [id number] 10mg Take 1 [facility] 10 mg 1-23 tablet by ity of tablet 00:00: mouth [place] 00 daily. Medical Branch loratadine Yes [id number] 10mg Take 1 [facility] 10 mg 1-23 tablet by ity of tablet 00:00: mouth [place] 00 daily. Medical Branch loratadine Yes [id number] 10mg Take 1 [facility] 10 mg 1-23 tablet by ity of tablet 00:00: mouth [place] 00 daily. Medical Branch loratadine Yes [id number] 10mg Take 1 [facility] 10 mg 1-23 tablet by ity of tablet 00:00: mouth [place] 00 daily. Medical Branch loratadine Yes [id number] 10mg Take 1 [facility] 10 mg 1-23 tablet by ity of tablet 00:00: mouth [place] 00 daily. Medical Branch loratadine 2021- No [id number] 10mg Take 1 [facility] 10 mg 1-23 06-13 tablet by ity of tablet 00:00: 00:00 mouth [place] 00 :00 daily. Medical Branch Immunizations Ordered Immunization Filled Immunization Date Status Commen ts Source Name Name SARS-COV-2 COVID-19 2022-07-27 Completed Unive rsity of [facility] VACCINE 00:00:00 [facility] 12 YRS+, BIVALENT Branch 0.3ML, IM, (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) SARS-COV-2 COVID-19 2022-07-27 Completed Unive rsity of [facility]EL[facility]-SUCROSE VACCINE 00:00:00 [facility] 10 YRS+, BIVALENT Branch 0.3ML, IM, (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) SARS-COV-2 COVID-19 2022-07-27 Completed Unive rsity of [facility]STELLE-SUCROSE VACCINE 00:00:00 [facility] 12 YRS+, BIVALENT Branch 0.3ML, IM, (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) SARS-COV-2 COVID-19 2022-07-27 Completed Unive rsity of [facility]STELLE-SUCROSE VACCINE 00:00:00 [facility] 12 YRS+, BIVALENT Branch 0.3ML, IM, (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) SARS-COV-2 COVID-19 2022-07-27 Completed Unive rsity of [facility]RISTELLE-SUCROSE VACCINE 00:00:00 [facility] 12 YRS+, BIVALENT Branch 0.3ML, IM, (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) [facility] (hep a/hep b) 2022-02-24 Completed Uni versity of 00:00:00 [facility] [place] [facility] (hep a/hep b) 2022-02-24 Completed Uni versity of 00:00:00 [facility] [place] [facility] (hep a/hep b) 2022-02-24 Completed Uni versity of 00:00:00 [facility] [place] [facility] (hep a/hep b) 2022-02-24 Completed Uni versity of 00:00:00 [facility] [place] [facility] (hep a/hep b) 2022-02-24 Completed Uni versity of 00:00:00 [facility] [place] [facility] (hep a/hep b) 2022-02-24 Completed Uni versity of 00:00:00 [facility] [place] [facility] (hep a/hep b) 2022-02-24 Completed Uni versity of 00:00:00 [facility] [place] [facility] (hep a/hep b) 2022-02-24 Completed Uni versity of 00:00:00 [facility] [place] [facility] (hep a/hep b) 2022-02-24 Completed Uni [...] b) 2022-02-24 Completed Uni versity of 00:00:00 [facility] (hep a/hep b) 2022-02-24 Completed Uni versity of 00:00:00 [place] [facility] (hep a/hep b) 2022-02-24 Completed Uni versity of 00:00:00 [facility] (hep a/hep b) 2022-02-24 Completed Uni versity of 00:00:00 [facility] (hep a/hep b) 2022-02-24 Completed Uni versity of 00:00:00 [facility] (hep a/hep b) 2022-02-24 Completed Uni versity of 00:00:00 [facility] (hep a/hep b) 2022-02-24 Completed Uni versity of 00:00:00 [place] [facility] (hep a/hep b) 2022-02-24 Completed Uni versity of 00:00:00 [place] [facility] (hep a/hep b) 2022-02-24 Completed Uni versity of 00:00:00 [place] [facility] (hep a/hep b) 2022-02-24 Completed Uni versity of 00:00:00 [facility] (hep a/hep b) [...] b) 2022-02-24 Completed Uni versity of 00:00:00 [facility] (hep a/hep b) 2022-02-24 Completed Uni versity of 00:00:00 [facility] (hep a/hep b) 2022-02-24 Completed Uni versity of 00:00:00 [facility] (hep a/hep b) 2022-02-24 Completed Uni versity of 00:00:00 [facility] (hep a/hep b) 2022-02-24 Completed Uni versity of 00:00:00 [facility] (hep a/hep b) 2022-02-24 Completed Uni versity of 00:00:00 [facility] (hep a/hep b) 2022-02-24 Completed Uni versity of 00:00:00 [facility] (hep a/hep b) 2022-02-24 Completed Uni versity of 00:00:00 [facility] (hep a/hep b) 2022-02-24 Completed Uni versity of 00:00:00 [place] [facility] (hep a/hep b) 2022-02-24 Completed Uni versity of 00:00:00 [facility] (hep a/hep b) 2022-02-24 Completed Uni versity of 00:00:00 [facility] (hep a/hep b) [...] b) 2022-02-24 Completed Uni versity of 00:00:00 [facility] (hep a/hep b) 2022-02-24 Completed Uni versity of 00:00:00 [facility] (hep a/hep b) 2022-02-24 Completed Uni versity of 00:00:00 [place] [facility] (hep a/hep b) 2022-02-24 Completed Uni versity of 00:00:00 [facility] (hep a/hep b) 2022-02-24 Completed Uni versity of 00:00:00 [facility] (hep a/hep b) [...] 2022-01-14 Completed Uni versity of 00:00:00 [place] [facility] (hep a/hep b) 2022-01-14 [...] b) 2022-01-14 Completed Uni versity of 00:00:00 [facility] (hep a/hep b) 2022-01-14 Completed Uni versity of 00:00:00 [facility] (hep a/hep b) 2022-01-14 Completed Uni versity of 00:00:00 [facility] (hep a/hep b) 2022-01-14 Completed Uni versity of 00:00:00 [facility] (hep a/hep b) 2022-01-14 Completed [facility] vers[facility] of 00:00:00 [facility] (hep a/hep b) 2022-01-14 Completed [facility] vers[facility] of 00:00:00 [facility] (hep a/hep b) 2022-01-14 Completed [facility] vers[facility] of 00:00:00 [facility] (hep a/hep b) 2022-01-14 Completed [facility] vers[facility] of 00:00:00 [facility] (hep a/hep b) 2022-01-14 Completed [facility] of 00:00:00 [facility] (hep a/hep b) 2022-01-14 Completed Uni versity of 00:00:00 [facility] (hep a/hep b) 2022-01-14 Completed [facility] vers[facility] of 00:00:00 [facility] (hep a/hep b) 2022-01-14 Completed [facility] vers[facility] of 00:00:00 [facility] (hep a/hep b) [...] b) 2022-01-14 Completed [facility] vers[facility] of 00:00:00 [facility] (hep a/hep b) 2022-01-14 Completed [facility] vers[facility] of 00:00:00 [facility] (hep a/hep b) 2022-01-14 Completed [facility] vers[facility] of 00:00:00 [facility] (hep a/hep b) 2022-01-14 Completed [facility] versity of 00:00:00 [facility] (hep a/hep b) 2022-01-14 Completed [facility] vers[facility] of 00:00:00 [facility] (hep a/hep b) 2022-01-14 Completed [facility] vers[facility] of 00:00:00 [facility] (hep a/hep b) [...] b) 2022-01-14 Completed [facility] vers[facility] of 00:00:00 [facility] Twin[facility] (hep a/hep b) 2022-01-14 Completed [facility] vers[facility] of 00:00:00 [facility] (hep a/hep b) 2022-01-14 Completed [facility] vers[facility] of 00:00:00 [facility] (hep a/hep b) 2022-01-14 Completed [facility] vers[facility] of 00:00:00 [facility] (hep a/hep b) 2022-01-14 Completed [facility] vers[facility] of 00:00:00 [facility] (hep a/hep b) 2022-01-14 Completed [facility] vers[facility] of 00:00:00 [facility] (hep a/hep b) 2022-01-14 Completed [facility] vers[facility] of 00:00:00 [facility] (hep a/hep b) 2022-01-14 Completed [facility] vers[facility] of 00:00:00 [facility] (hep a/hep b) 2022-01-14 Completed [facility] vers[facility] of 00:00:00 [facility] (hep a/hep b) 2022-01-14 Completed [facility] vers[facility] of 00:00:00 [facility] (hep a/hep b) 2022-01-14 Completed [facility] vers[facility] of 00:00:00 [facility] (hep a/hep b) 2022-01-14 Completed [facility] vers[facility] of 00:00:00 [facility] (hep a/hep b) 2022-01-14 Completed [facility] vers[facility] of 00:00:00 [facility] (hep a/hep b) 2022-01-14 Completed [facility] vers[facility] of 00:00:00 [facility] (hep a/hep b) 2022-01-14 Completed [facility] vers[facility] of 00:00:00 [facility] (hep a/hep b) 2022-01-14 Completed [facility] vers[facility] of 00:00:00 [facility] SARS-COV-2 COVID-19 2021-07-23 Completed Unive rsity of PFIZER VACCINE 00:00:00 [facility] SARS-COV-2 COVID-19 2021-07-23 Completed [facility]ive rsity of PFIZER VACCINE 00:00:00 [facility] SARS-COV-2 COVID-19 2021-07-23 Completed Unive rsity of PFIZER VACCINE 00:00:00 [facility] SARS-COV-2 COVID-19 2021-07-23 Completed [facility]ity of PFIZER VACCINE 00:00:00 [facility] SARS-COV-2 COVID-19 2021-07-23 Completed [facility] rsity of PFIZER VACCINE 00:00:00 [facility] SARS-COV-2 COVID-19 2021-07-23 Completed [facility]ity of PFIZER VACCINE 00:00:00 [facility] SARS-COV-2 COVID-19 2021-07-23 Completed [facility]ity of PFIZER VACCINE 00:00:00 [facility] SARS-COV-2 COVID-19 2021-07-23 Completed [facility]ity of PFIZER VACCINE 00:00:00 [facility] SARS-COV-2 COVID-19 2021-07-23 Completed [facility]ity of PFIZER VACCINE 00:00:00 [facility] SARS-COV-2 COVID-19 2021-07-23 Completed [facility] rsity of PFIZER VACCINE 00:00:00 [facility] SARS-COV-2 COVID-19 2021-07-23 Completed [facility]ity of PFIZER VACCINE 00:00:00 [facility] SARS-COV-2 COVID-19 2021-07-23 Completed [facility]ity of PFIZER VACCINE 00:00:00 [facility] SARS-COV-2 COVID-19 2021-07-23 Completed [facility] rsity of PFIZER VACCINE 00:00:00 [facility] SARS-COV-2 COVID-19 2021-07-23 Completed [facility]ity of PFIZER VACCINE 00:00:00 [facility] SARS-COV-2 COVID-19 2021-07-23 Completed [facility]ity of PFIZER VACCINE 00:00:00 [facility] SARS-COV-2 COVID-19 2021-07-23 Completed [facility] rsity of PFIZER VACCINE 00:00:00 [facility] SARS-COV-2 COVID-19 2021-07-23 Completed [facility]ive rsity of PFIZER VACCINE 00:00:00 [facility] SARS-COV-2 COVID-19 2021-07-23 Completed [facility]ive rsity of PFIZER VACCINE 00:00:00 [facility] SARS-COV-2 COVID-19 2021-07-23 Completed [facility] rsity of PFIZER VACCINE 00:00:00 [facility] SARS-COV-2 COVID-19 2021-07-23 Completed [facility]ive rsity of PFIZER VACCINE 00:00:00 [facility] SARS-COV-2 COVID-19 2021-07-23 Completed [facility] rsity of PFIZER VACCINE 00:00:00 [facility] SARS-COV-2 COVID-19 2021-07-23 Completed [facility] rsity of PFIZER VACCINE 00:00:00 [facility] SARS-COV-2 COVID-19 2021-07-23 Completed [facility]ive rsity of PFIZER VACCINE 00:00:00 [facility] SARS-COV-2 COVID-19 2021-07-23 Completed [facility] rsity of PFIZER VACCINE 00:00:00 [facility] SARS-COV-2 COVID-19 2021-07-23 Completed [facility]ity of PFIZER VACCINE 00:00:00 [facility] SARS-COV-2 COVID-19 2021-07-23 Completed [facility] of PFIZER VACCINE 00:00:00 [facility] SARS-COV-2 COVID-19 2021-07-23 Completed [facility]ity of PFIZER VACCINE 00:00:00 [facility] SARS-COV-2 COVID-19 2021-07-23 Completed [facility] rsity of PFIZER VACCINE 00:00:00 [facility] SARS-COV-2 COVID-19 2021-07-23 Completed [facility]ity of PFIZER VACCINE 00:00:00 [facility] SARS-COV-2 COVID-19 2021-07-23 Completed [facility] of PFIZER VACCINE 00:00:00 [facility] SARS-COV-2 COVID-19 2021-07-23 Completed [facility] of PFIZER VACCINE 00:00:00 [facility] SARS-COV-2 COVID-19 2021-07-23 Completed [facility] of PFIZER VACCINE 00:00:00 [facility] SARS-COV-2 COVID-19 2021-07-23 Completed [facility] rsity of PFIZER VACCINE 00:00:00 [facility] SARS-COV-2 COVID-19 2021-07-23 Completed [facility] rsity of PFIZER VACCINE 00:00:00 [facility] SARS-COV-2 COVID-19 2021-07-23 Completed [facility] rsity of PFIZER VACCINE 00:00:00 [facility] SARS-COV-2 COVID-19 2021-07-23 Completed [facility] rs[facility] of PFIZER VACCINE 00:00:00 [facility] SARS-COV-2 COVID-19 2021-07-23 Completed [facility] rsity of PFIZER VACCINE 00:00:00 [facility] SARS-COV-2 COVID-19 2021-07-23 Completed [facility] rs[facility] of PFIZER VACCINE 00:00:00 [facility] SARS-COV-2 COVID-19 2021-07-23 Completed [facility] of PFIZER VACCINE 00:00:00 [facility] SARS-COV-2 COVID-19 2021-07-23 Completed [facility] of PFIZER VACCINE 00:00:00 [facility] SARS-COV-2 COVID-19 2021-07-23 Completed [facility]ive rsity of PFIZER VACCINE 00:00:00 [facility] SARS-COV-2 COVID-19 2021-07-23 Completed [facility]ity of PFIZER VACCINE 00:00:00 [facility] SARS-COV-2 COVID-19 2021-07-23 Completed [facility]ity of PFIZER VACCINE 00:00:00 [facility] SARS-COV-2 COVID-19 2021-07-23 Completed [facility] of PFIZER VACCINE 00:00:00 [facility] SARS-COV-2 COVID-19 2021-07-23 Completed [facility] rs[facility] of PFIZER VACCINE 00:00:00 [facility] SARS-COV-2 COVID-19 2021-07-23 Completed [facility]ive [facility] of PFIZER VACCINE 00:00:00 [facility] SARS-COV-2 COVID-19 2021-07-23 Completed [facility]ive rs[facility] of PFIZER VACCINE 00:00:00 [facility] SARS-COV-2 COVID-19 2021-07-23 Completed [facility] of PFIZER VACCINE 00:00:00 [facility] SARS-COV-2 COVID-19 2021-07-23 Completed [facility] of PFIZER VACCINE 00:00:00 [facility] SARS-COV-2 COVID-19 2021-07-23 Completed Unive rsity of PFIZER VACCINE 00:00:00 [facility] SARS-COV-2 COVID-19 2021-07-23 Completed [facility] rsity of PFIZER VACCINE 00:00:00 [facility] SARS-COV-2 COVID-19 2021-07-23 Completed [facility] of PFIZER VACCINE 00:00:00 [facility] SARS-COV-2 COVID-19 2021-07-23 Completed [facility] rs[facility] of PFIZER VACCINE 00:00:00 [facility] SARS-COV-2 COVID-19 2021-07-23 Completed [facility] of PFIZER VACCINE 00:00:00 [facility] SARS-COV-2 COVID-19 2021-07-23 Completed [facility] rs[facility] of PFIZER VACCINE 00:00:00 [facility] Influenza Virus 2021-05-27 Completed [facility] y of Vaccine (3+ yrs) 00:00:[address] [facility] Influenza Virus 2021-05-27 Completed [facility]it y of Vaccine (3+ yrs) 00:00:[address] [facility] Influenza Virus 2021-05-27 Completed [facility] y of Vaccine (3+ yrs) 00:00:[address] [facility] Influenza Virus 2021-05-27 Completed [facility] y of Vaccine (3+ yrs) 00:00:[address] [facility] Influenza Virus 2021-05-27 Completed [facility] y of Vaccine (3+ yrs) 00:00:[address] [facility] Influenza Virus 2021-05-27 Completed [facility] y of Vaccine (3+ yrs) 00:00:[address] [facility] Influenza Virus 2021-05-27 Completed [facility] y of Vaccine (3+ yrs) 00:00:[address] [facility] Influenza Virus 2021-05-27 Completed [facility] y of Vaccine (3+ yrs) 00:00:[address] [facility] Influenza Virus 2021-05-27 Completed [facility] y of Vaccine (3+ yrs) 00:00:[address] [facility] Influenza Virus 2021-05-27 Completed [facility] y of Vaccine (3+ yrs) 00:00:[address] [facility] Influenza Virus 2021-05-27 Completed [facility] y of Vaccine (3+ yrs) 00:00:[address] [facility] Influenza Virus 2021-05-27 Completed [facility] y of Vaccine (3+ yrs) 00:00:[address] [facility] Influenza Virus 2021-05-27 Completed [facility] y of Vaccine (3+ yrs) 00:00:[address] [facility] Influenza Virus 2021-05-27 Completed [facility] y of Vaccine (3+ yrs) 00:00:[address] [facility] Influenza Virus 2021-05-27 Completed [facility] y of Vaccine (3+ yrs) 00:00:[address] [facility] Influenza Virus 2021-05-27 Completed [facility] y of Vaccine (3+ yrs) 00:00:[address] [facility] Influenza Virus 2021-05-27 Completed [facility] of Vaccine (3+ yrs) 00:00:[address] [facility] Influenza Virus 2021-05-27 Completed [facility] y of Vaccine (3+ yrs) 00:00:[address] [facility] Influenza Virus 2021-05-27 Completed [facility] y of Vaccine (3+ yrs) 00:00:[address] [facility] Influenza Virus 2021-05-27 Completed [facility] y of Vaccine (3+ yrs) 00:00:[address] [facility] Influenza Virus 2021-05-27 Completed [facility] y of Vaccine (3+ yrs) 00:00:[address] [facility] Influenza Virus 2021-05-27 Completed [facility] y of Vaccine (3+ yrs) 00:00:[address] [facility] Influenza Virus 2021-05-27 Completed [facility] y of Vaccine (3+ yrs) 00:00:[address] [facility] Influenza Virus 2021-05-27 Completed [facility] y of Vaccine (3+ yrs) 00:00:[address] [facility] Influenza Virus 2021-05-27 Completed [facility] y of Vaccine (3+ yrs) 00:00:[address] [facility] Influenza Virus 2021-05-27 Completed [facility] y of Vaccine (3+ yrs) 00:00:[address] [facility] Influenza Virus 2021-05-27 Completed [facility] y of Vaccine (3+ yrs) 00:00:[address] [facility] Influenza Virus 2021-05-27 Completed [facility] y of Vaccine (3+ yrs) 00:00:[address] [facility] Influenza Virus 2021-05-27 Completed [facility] of Vaccine (3+ yrs) 00:00:00 [facility] Influenza Virus 2021-05-27 Completed Universit y of Vaccine (3+ yrs) 00:00:[address] [facility] Influenza Virus 2021-05-27 Completed [facility] y of Vaccine (3+ yrs) 00:00:00 [facility] Influenza Virus 2021-05-27 Completed [facility] y of Vaccine (3+ yrs) 00:00:[address] [facility] Influenza Virus 2021-05-27 Completed [facility] y of Vaccine (3+ yrs) 00:00:[address] [facility] Influenza Virus 2021-05-27 Completed [facility] of Vaccine (3+ yrs) 00:00:[address] [facility] Influenza Virus 2021-05-27 Completed [facility] y of Vaccine (3+ yrs) 00:00:[address] [facility] Influenza Virus 2021-05-27 Completed [facility] y of Vaccine (3+ yrs) 00:00:[address] [facility] Influenza Virus 2021-05-27 Completed [facility] y of Vaccine (3+ yrs) 00:00:[address] [facility] Influenza Virus 2021-05-27 Completed [facility] y of Vaccine (3+ yrs) 00:00:[address] [facility] Influenza Virus 2021-05-27 Completed [facility] of Vaccine (3+ yrs) 00:00:[address] [facility] Influenza Virus 2021-05-27 Completed [facility] of Vaccine (3+ yrs) 00:00:00 [facility] Influenza Virus 2021-05-27 Completed [facility] y of Vaccine (3+ yrs) 00:00:00 [facility] Influenza Virus 2021-05-27 Completed [facility] y of Vaccine (3+ yrs) 00:00:[address] [facility] Influenza Virus 2021-05-27 Completed [facility] y of Vaccine (3+ yrs) 00:00:[address] [facility] Influenza Virus 2021-05-27 Completed [facility] of Vaccine (3+ yrs) 00:00:[address] [facility] Influenza Virus 2021-05-27 Completed [facility] of Vaccine (3+ yrs) 00:00:00 [facility] Influenza Virus 2021-05-27 Completed [facility] y of Vaccine (3+ yrs) 00:00:00 [facility] Influenza Virus 2021-05-27 Completed [facility] y of Vaccine (3+ yrs) 00:00:[address] [facility] Influenza Virus 2021-05-27 Completed [facility] of Vaccine (3+ yrs) 00:00:[address] [facility] Influenza Virus 2021-05-27 Completed [facility] of Vaccine (3+ yrs) 00:00:00 [facility] Influenza Virus 2021-05-27 Completed [facility] y of Vaccine (3+ yrs) 00:00:[address] [facility] Influenza Virus 2021-05-27 Completed [facility] y of Vaccine (3+ yrs) 00:00:[address] [facility] Influenza Virus 2021-05-27 Completed [facility] y of Vaccine (3+ yrs) 00:00:[address] [facility] Influenza Virus 2021-05-27 Completed [facility] of Vaccine (3+ yrs) 00:00:00 [facility] Influenza Virus 2021-05-27 Completed [facility] of Vaccine (3+ yrs) 00:00:[address] [facility] Influenza Virus 2021-05-27 Completed [facility] of Vaccine (3+ yrs) 00:00:[address] [facility] SARS-COV-2 COVID-19 2020-12-13 Completed [facility] of PFIZER VACCINE 00:00:00 [facility] SARS-COV-2 COVID-19 2020-12-13 Completed [facility]ity of PFIZER VACCINE 00:00:00 [facility] SARS-COV-2 COVID-19 2020-12-13 Completed [facility] of PFIZER VACCINE 00:00:00 [facility] SARS-COV-2 COVID-19 2020-12-13 Completed [facility] of PFIZER VACCINE 00:00:00 [facility] SARS-COV-2 COVID-19 2020-12-13 Completed [facility] of PFIZER VACCINE 00:00:00 [facility] SARS-COV-2 COVID-19 2020-12-13 Completed [facility] of PFIZER VACCINE 00:00:00 [facility] SARS-COV-2 COVID-19 2020-12-13 Completed [facility] of PFIZER VACCINE 00:00:00 [facility] SARS-COV-2 COVID-19 2020-12-13 Completed [facility]ity of PFIZER VACCINE 00:00:00 [facility] SARS-COV-2 COVID-19 2020-12-13 Completed [facility] of PFIZER VACCINE 00:00:00 [facility] SARS-COV-2 COVID-19 2020-12-13 Completed [facility] of PFIZER VACCINE 00:00:00 [facility] SARS-COV-2 COVID-19 2020-12-13 Completed [facility] of PFIZER VACCINE 00:00:00 [facility] SARS-COV-2 COVID-19 2020-12-13 Completed [facility] of PFIZER VACCINE 00:00:00 [facility] SARS-COV-2 COVID-19 2020-12-13 Completed [facility] of PFIZER VACCINE 00:00:00 [facility] SARS-COV-2 COVID-19 2020-12-13 Completed [facility] of PFIZER VACCINE 00:00:00 [facility] SARS-COV-2 COVID-19 2020-12-13 Completed [facility] of PFIZER VACCINE 00:00:00 [facility] SARS-COV-2 COVID-19 2020-12-13 Completed [facility] of PFIZER VACCINE 00:00:00 [facility] SARS-COV-2 COVID-19 2020-12-13 Completed [facility] of PFIZER VACCINE 00:00:00 [facility] SARS-COV-2 COVID-19 2020-12-13 Completed [facility] of PFIZER VACCINE 00:00:00 [facility] SARS-COV-2 COVID-19 2020-12-13 Completed [facility] of PFIZER VACCINE 00:00:00 [facility] SARS-COV-2 COVID-19 2020-12-13 Completed [facility]ity of PFIZER VACCINE 00:00:00 [facility] SARS-COV-2 COVID-19 2020-12-13 Completed [facility] of PFIZER VACCINE 00:00:00 [facility] SARS-COV-2 COVID-19 2020-12-13 Completed [facility] of PFIZER VACCINE 00:00:00 [facility] SARS-COV-2 COVID-19 2020-12-13 Completed [facility] of PFIZER VACCINE 00:00:00 [facility] SARS-COV-2 COVID-19 2020-12-13 Completed [facility] of PFIZER VACCINE 00:00:00 [facility] SARS-COV-2 COVID-19 2020-12-13 Completed [facility] of PFIZER VACCINE 00:00:00 [facility] SARS-COV-2 COVID-19 2020-12-13 Completed [facility] of PFIZER VACCINE 00:00:00 [facility] SARS-COV-2 COVID-19 2020-12-13 Completed [facility] of PFIZER VACCINE 00:00:00 [facility] SARS-COV-2 COVID-19 2020-12-13 Completed [facility] of PFIZER VACCINE 00:00:00 [facility] SARS-COV-2 COVID-19 2020-12-13 Completed [facility] of PFIZER VACCINE 00:00:00 [facility] SARS-COV-2 COVID-19 2020-12-13 Completed [facility] of PFIZER VACCINE 00:00:00 [facility] SARS-COV-2 COVID-19 2020-12-13 Completed [facility] of PFIZER VACCINE 00:00:00 [facility] SARS-COV-2 COVID-19 2020-12-13 Completed [facility] of PFIZER VACCINE 00:00:00 [facility] SARS-COV-2 COVID-19 2020-12-13 Completed [facility] of PFIZER VACCINE 00:00:00 [facility] SARS-COV-2 COVID-19 2020-12-13 Completed [facility] of PFIZER VACCINE 00:00:00 [facility] SARS-COV-2 COVID-19 2020-12-13 Completed [facility] of PFIZER VACCINE 00:00:00 [facility] SARS-COV-2 COVID-19 2020-12-13 Completed [facility] of PFIZER VACCINE 00:00:00 [facility] SARS-COV-2 COVID-19 2020-12-13 Completed [facility] of PFIZER VACCINE 00:00:00 [facility] SARS-COV-2 COVID-19 2020-12-13 Completed [facility] of PFIZER VACCINE 00:00:00 [facility] SARS-COV-2 COVID-19 2020-12-13 Completed [facility] of PFIZER VACCINE 00:00:00 [facility] SARS-COV-2 COVID-19 2020-12-13 Completed [facility] of PFIZER VACCINE 00:00:00 [facility] SARS-COV-2 COVID-19 2020-12-13 Completed [facility] of PFIZER VACCINE 00:00:00 [facility] SARS-COV-2 COVID-19 2020-12-13 Completed [facility] of PFIZER VACCINE 00:00:00 [facility] SARS-COV-2 COVID-19 2020-12-13 Completed [facility] of PFIZER VACCINE 00:00:00 [facility] SARS-COV-2 COVID-19 2020-12-13 Completed [facility] of PFIZER VACCINE 00:00:00 [facility] SARS-COV-2 COVID-19 2020-12-13 Completed [facility] of PFIZER VACCINE 00:00:00 [facility] SARS-COV-2 COVID-19 2020-12-13 Completed [facility] of PFIZER VACCINE 00:00:00 [facility] SARS-COV-2 COVID-19 2020-12-13 Completed [facility] of PFIZER VACCINE 00:00:00 [facility] SARS-COV-2 COVID-19 2020-12-13 Completed [facility] of PFIZER VACCINE 00:00:00 [facility] SARS-COV-2 COVID-19 2020-12-13 Completed [facility] of PFIZER VACCINE 00:00:00 [facility] SARS-COV-2 COVID-19 2020-12-13 Completed [facility] of PFIZER VACCINE 00:00:00 [facility] SARS-COV-2 COVID-19 2020-12-13 Completed [facility] of PFIZER VACCINE 00:00:00 [facility] SARS-COV-2 COVID-19 2020-12-13 Completed [facility] PFIZER VACCINE 00:00:00 [facility] SARS-COV-2 COVID-19 2020-12-13 Completed [facility] PFIZER [facility]ACCINE [facility]:00 [facility] [facility] SARS-COV-2 COVID-19 2020-12-13 Completed [facility] PFIZER VACCINE 00:00:00 [facility] SARS-COV-2 COVID-19 2020-12-13 Completed [facility] PFIZER VACCINE 00:00:00 [facility] SARS-COV-2 COVID-19 2020-11-22 Completed [facility] of PFIZER VACCINE 00:00:00 [facility] SARS-COV-2 COVID-19 2020-11-22 Completed [facility] of PFIZER VACCINE 00:00:00 [facility] SARS-COV-2 COVID-19 2020-11-22 Completed [facility] PFIZER VACCINE 00:00:00 [facility] SARS-COV-2 COVID-19 2020-11-22 Completed [facility] of PFIZER VACCINE 00:00:00 [facility] SARS-COV-2 COVID-19 2020-11-22 Completed [facility] PFIZER VACCINE 00:00:00 [facility] SARS-COV-2 COVID-19 2020-11-22 Completed [facility] PFIZER VACCINE 00:00:00 [facility] SARS-COV-2 COVID-19 2020-11-22 Completed [facility] of PFIZER VACCINE 00:00:00 [facility] SARS-COV-2 COVID-19 2020-11-22 Completed [facility] of PFIZER VACCINE 00:00:00 [facility] SARS-COV-2 COVID-19 2020-11-22 Completed [facility] of PFIZER VACCINE 00:00:00 [facility] SARS-COV-2 COVID-19 2020-11-22 Completed [facility] of PFIZER VACCINE 00:00:00 [facility] SARS-COV-2 COVID-19 2020-11-22 Completed [facility] of PFIZER VACCINE 00:00:00 [facility] SARS-COV-2 COVID-19 2020-11-22 Completed [facility] of PFIZER VACCINE 00:00:00 [facility] SARS-COV-2 COVID-19 2020-11-22 Completed [facility] of PFIZER VACCINE 00:00:00 [facility] SARS-COV-2 COVID-19 2020-11-22 Completed [facility] PFIZER VACCINE 00:00:00 [facility] SARS-COV-2 COVID-19 2020-11-22 Completed [facility] of PFIZER VACCINE 00:00:00 [facility] SARS-COV-2 COVID-19 2020-11-22 Completed [facility] PFIZER VACCINE 00:00:00 [facility] SARS-COV-2 COVID-19 2020-11-22 Completed [facility] PFIZER VACCINE 00:00:00 [facility] SARS-COV-2 COVID-19 2020-11-22 Completed [facility] of PFIZER VACCINE 00:00:00 [facility] SARS-COV-2 COVID-19 2020-11-22 Completed [facility] of PFIZER VACCINE 00:00:00 [facility] SARS-COV-2 COVID-19 2020-11-22 Completed [facility] of PFIZER VACCINE 00:00:00 [facility] SARS-COV-2 COVID-19 2020-11-22 Completed [facility] of PFIZER VACCINE 00:00:00 [facility] SARS-COV-2 COVID-19 2020-11-22 Completed [facility] of PFIZER VACCINE 00:00:00 [facility] SARS-COV-2 COVID-19 2020-11-22 Completed [facility] of PFIZER VACCINE 00:00:00 [facility] SARS-COV-2 COVID-19 2020-11-22 Completed [facility] of PFIZER VACCINE 00:00:00 [facility] SARS-COV-2 COVID-19 2020-11-22 Completed [facility] of PFIZER VACCINE 00:00:00 [facility] SARS-COV-2 COVID-19 2020-11-22 Completed [facility] of PFIZER VACCINE 00:00:00 [facility] SARS-COV-2 COVID-19 2020-11-22 Completed [facility] of PFIZER VACCINE 00:00:00 [facility] SARS-COV-2 COVID-19 2020-11-22 Completed [facility] of PFIZER VACCINE 00:00:00 [facility] SARS-COV-2 COVID-19 2020-11-22 Completed [facility] of PFIZER VACCINE 00:00:00 [facility] SARS-COV-2 COVID-19 2020-11-22 Completed [facility] of PFIZER VACCINE 00:00:00 [facility] SARS-COV-2 COVID-19 2020-11-22 Completed [facility] of PFIZER VACCINE 00:00:00 [facility] SARS-COV-2 COVID-19 2020-11-22 Completed [facility] of PFIZER VACCINE 00:00:00 [facility] SARS-COV-2 COVID-19 2020-11-22 Completed [facility] of PFIZER VACCINE 00:00:00 [facility] SARS-COV-2 COVID-19 2020-11-22 Completed [facility] of PFIZER VACCINE 00:00:00 [facility] SARS-COV-2 COVID-19 2020-11-22 Completed [facility] of PFIZER VACCINE 00:00:00 [facility] SARS-COV-2 COVID-19 2020-11-22 Completed [facility] of PFIZER VACCINE 00:00:00 [facility] SARS-COV-2 COVID-19 2020-11-22 Completed [facility] of PFIZER VACCINE 00:00:00 [facility] SARS-COV-2 COVID-19 2020-11-22 Completed [facility] of PFIZER VACCINE 00:00:00 [facility] SARS-COV-2 COVID-19 2020-11-22 Completed [facility] of PFIZER VACCINE 00:00:00 [facility] SARS-COV-2 COVID-19 2020-11-22 Completed [facility] of PFIZER VACCINE 00:00:00 [facility] SARS-COV-2 COVID-19 2020-11-22 Completed [facility] of PFIZER VACCINE 00:00:00 [facility] SARS-COV-2 COVID-19 2020-11-22 Completed [facility] of PFIZER VACCINE 00:00:00 [facility] SARS-COV-2 COVID-19 2020-11-22 Completed [facility] of PFIZER VACCINE 00:00:00 [facility] SARS-COV-2 COVID-19 2020-11-22 Completed [facility] of PFIZER VACCINE 00:00:00 [facility] SARS-COV-2 COVID-19 2020-11-22 Completed [facility] of PFIZER VACCINE 00:00:00 [facility] SARS-COV-2 COVID-19 2020-11-22 Completed [facility] of PFIZER VACCINE 00:00:00 [facility] SARS-COV-2 COVID-19 2020-11-22 Completed [facility] of PFIZER VACCINE 00:00:00 [facility] SARS-COV-2 COVID-19 2020-11-22 Completed [facility] of PFIZER VACCINE 00:00:00 [facility] SARS-COV-2 COVID-19 2020-11-22 Completed [facility] of PFIZER VACCINE 00:00:00 [facility] SARS-COV-2 COVID-19 2020-11-22 Completed [facility] of PFIZER VACCINE 00:00:00 [facility] SARS-COV-2 COVID-19 2020-11-22 Completed [facility] of PFIZER VACCINE 00:00:00 [facility] SARS-COV-2 COVID-19 2020-11-22 Completed [facility] of PFIZER VACCINE 00:00:00 [facility] SARS-COV-2 COVID-19 2020-11-22 Completed [facility] of PFIZER VACCINE 00:00:00 [facility] SARS-COV-2 COVID-19 2020-11-22 Completed [facility] of PFIZER VACCINE 00:00:00 [facility] SARS-COV-2 COVID-19 2020-11-22 Completed [facility] of PFIZER VACCINE 00:00:00 [facility] Influenza Virus 2020-05-27 Completed [facility] [...] 2019-08-10 Completed [facility] o f Polysaccharide, 00:00:00 [facility] ical PPSV23 (PNEUMOVAX) Branch TDAP (ADACEL) VACCINE 2019-08-10 Completed Uni versity of 00:00:00 [facility] TDAP 2019-08-10 Completed University of 00:00:00 [facility] Pneumococcal 2019-08-10 Completed University o f Polysaccharide, 00:00:00 [facility] ical PPSV23 (PNEUMOVAX) Branch TDAP (ADACEL) VACCINE 2019-08-10 Completed [facility] vers[facility] of 00:00:00 [facility] TDAP 2019-08-10 Completed [facility] of 00:00:00 [facility] Pneumococcal 2019-08-10 Completed [facility] Polysaccharide, 00:00:00 [facility] PPSV23 (PNEUMOVAX) [facility] TDAP (ADACEL) VACCINE 2019-08-10 Completed [facility] vers[facility] of 00:00:00 [facility] TDAP 2019-08-10 Completed [facility] of 00:00:00 [facility] Pneumococcal 2019-08-10 Completed [facility] o f Polysaccharide, 00:00:00 [facility] PPSV23 (PNEUMOVAX) Branch TDAP (ADACEL) VACCINE 2019-08-10 Completed [facility] versity of 00:00:00 [facility] TDAP 2019-08-10 Completed [facility] of 00:00:00 [facility] Pneumococcal 2019-08-10 Completed [facility] o f Polysaccharide, 00:00:00 [facility] PPSV23 (PNEUMOVAX) Branch TDAP (ADACEL) VACCINE 2019-08-10 Completed Uni versity of 00:00:00 [facility] TDAP 2019-08-10 Completed [facility] of 00:00:00 [facility] Pneumococcal 2019-08-10 Completed [facility] o f Polysaccharide, 00:00:00 [facility] PPSV23 (PNEUMOVAX) Branch TDAP (ADACEL) VACCINE 2019-08-10 Completed [facility] vers[facility] of 00:00:00 [facility] TDAP 2019-08-10 Completed [facility] of 00:00:00 [facility] Pneumococcal 2019-08-10 Completed [facility] o f Polysaccharide, 00:00:00 [facility] PPSV23 (PNEUMOVAX) Branch TDAP (ADACEL) VACCINE 2019-08-10 Completed [facility] vers[facility] of 00:00:00 [facility] TDAP 2019-08-10 Completed [facility] of 00:00:00 [facility] Pneumococcal 2019-08-10 Completed [facility] o f Polysaccharide, 00:00:00 [facility] PPSV23 (PNEUMOVAX) Branch TDAP (ADACEL) VACCINE 2019-08-10 Completed [facility] vers[facility] of 00:00:00 [facility] TDAP 2019-08-10 Completed [facility] of 00:00:00 [facility] Pneumococcal 2019-08-10 Completed [facility] o f Polysaccharide, 00:00:00 [facility] PPSV23 (PNEUMOVAX) Branch TDAP (ADACEL) VACCINE 2019-08-10 Completed [facility] vers[facility] of 00:00:00 [facility] TDAP 2019-08-10 Completed [facility] of 00:00:00 [facility] Pneumococcal 2019-08-10 Completed [facility] o f Polysaccharide, 00:00:00 [facility] PPSV23 (PNEUMOVAX) Branch TDAP (ADACEL) VACCINE 2019-08-10 Completed Uni versity of 00:00:00 [facility] TDAP 2019-08-10 Completed [facility] of 00:00:00 [facility] Pneumococcal 2019-08-10 Completed [facility] o f Polysaccharide, 00:00:00 [facility] PPSV23 (PNEUMOVAX) Branch TDAP (ADACEL) VACCINE 2019-08-10 Completed Uni versity of 00:00:00 [facility] TDAP 2019-08-10 Completed [facility] of 00:00:00 [facility] Pneumococcal 2019-08-10 Completed [facility] o f Polysaccharide, 00:00:00 [facility] PPSV23 (PNEUMOVAX) Branch TDAP (ADACEL) VACCINE 2019-08-10 Completed [facility] vers[facility] of 00:00:00 [facility] TDAP 2019-08-10 Completed [facility] of 00:00:00 [facility] Pneumococcal 2019-08-10 Completed [facility] o f Polysaccharide, 00:00:00 [facility] PPSV23 (PNEUMOVAX) Branch TDAP (ADACEL) VACCINE 2019-08-10 Completed Uni vers[facility] of 00:00:00 [facility] TDAP 2019-08-10 Completed [facility] of 00:00:00 [facility] Pneumococcal 2019-08-10 Completed [facility] o f Polysaccharide, 00:00:00 [facility] PPSV23 (PNEUMOVAX) Branch TDAP (ADACEL) VACCINE 2019-08-10 Completed Uni versity of 00:00:00 [facility] TDAP 2019-08-10 Completed [facility] of 00:00:00 [facility] Pneumococcal 2019-08-10 Completed [facility] o f Polysaccharide, 00:00:00 [place] [facility] PPSV23 (PNEUMOVAX) Branch TDAP (ADACEL) VACCINE 2019-08-10 Completed [facility] vers[facility] of 00:00:00 [facility] TDAP 2019-08-10 Completed [facility] of 00:00:00 [facility] Pneumococcal 2019-08-10 Completed [facility] o f Polysaccharide, 00:00:00 [facility] PPSV23 (PNEUMOVAX) Branch TDAP (ADACEL) VACCINE 2019-08-10 Completed Uni vers[facility] of 00:00:00 [facility] TDAP 2019-08-10 Completed University of 00:00:00 [facility] Pneumococcal 2019-08-10 Completed [facility] o f Polysaccharide, 00:00:00 [place] [facility] PPSV23 (PNEUMOVAX) Branch TDAP (ADACEL) VACCINE 2019-08-10 Completed Uni versity of 00:00:00 [facility] TDAP 2019-08-10 Completed [facility] of 00:00:00 [facility] Pneumococcal 2019-08-10 Completed [facility] o f Polysaccharide, 00:00:00 [place] [facility] PPSV23 (PNEUMOVAX) Branch TDAP (ADACEL) VACCINE 2019-08-10 Completed Uni vers[facility] of 00:00:00 [facility] TDAP 2019-08-10 Completed [facility] of 00:00:00 [facility] Pneumococcal 2019-08-10 Completed [facility] o f Polysaccharide, 00:00:00 [facility] PPSV23 (PNEUMOVAX) Branch TDAP (ADACEL) VACCINE 2019-08-10 Completed Uni vers[facility] of 00:00:00 [facility] TDAP 2019-08-10 Completed [facility] of 00:00:00 [facility] Pneumococcal 2019-08-10 Completed [facility] o f Polysaccharide, 00:00:00 [facility] PPSV23 (PNEUMOVAX) Branch TDAP (ADACEL) VACCINE 2019-08-10 Completed Uni versity of 00:00:00 [facility] TDAP 2019-08-10 Completed [facility] of 00:00:00 [facility] Pneumococcal 2019-08-10 Completed [facility] o f Polysaccharide, 00:00:00 [place] [facility] PPSV23 (PNEUMOVAX) Branch TDAP (ADACEL) VACCINE 2019-08-10 Completed Uni versity of 00:00:00 [facility] TDAP 2019-08-10 Completed [facility] of 00:00:00 [facility] Pneumococcal 2019-08-10 Completed [facility] o f Polysaccharide, 00:00:00 [facility] PPSV23 (PNEUMOVAX) Branch TDAP (ADACEL) VACCINE 2019-08-10 Completed [facility] vers[facility] 00:00:00 [facility] TDAP 2019-08-10 Completed [facility] of 00:00:00 [facility] Pneumococcal 2019-08-10 Completed [facility] o f Polysaccharide, 00:00:00 [facility] PPSV23 (PNEUMOVAX) Branch TDAP (ADACEL) VACCINE 2019-08-10 Completed [facility] vers[facility] of 00:00:00 [facility] TDAP 2019-08-10 Completed [facility] of 00:00:00 [facility] Pneumococcal 2019-08-10 Completed [facility] o f Polysaccharide, 00:00:00 [facility] PPSV23 (PNEUMOVAX) Branch TDAP (ADACEL) VACCINE 2019-08-10 Completed Uni versity of 00:00:00 [facility] TDAP 2019-08-10 Completed [facility] of 00:00:00 [facility] Pneumococcal 2019-08-10 Completed [facility] o f Polysaccharide, 00:00:00 [facility] PPSV23 (PNEUMOVAX) Branch TDAP (ADACEL) VACCINE 2019-08-10 Completed [facility] vers[facility] 00:00:00 [facility] TDAP 2019-08-10 Completed [facility] of 00:00:00 [facility] Pneumococcal 2019-08-10 Completed [facility] o f Polysaccharide, 00:00:00 [facility] PPSV23 (PNEUMOVAX) Branch TDAP (ADACEL) VACCINE 2019-08-10 Completed Uni vers[facility] of 00:00:00 [facility] TDAP 2019-08-10 Completed [facility] of 00:00:00 [facility] Pneumococcal 2019-08-10 Completed [facility] o f Polysaccharide, 00:00:00 [facility] PPSV23 (PNEUMOVAX) Branch TDAP (ADACEL) VACCINE 2019-08-10 Completed Uni versity of 00:00:00 [facility] TDAP 2019-08-10 Completed [facility] of 00:00:00 [facility] Pneumococcal 2019-08-10 Completed [facility] o f Polysaccharide, 00:00:00 [facility] PPSV23 (PNEUMOVAX) Branch TDAP (ADACEL) VACCINE 2019-08-10 Completed Uni versity of 00:00:00 [facility] TDAP 2019-08-10 Completed [facility] of 00:00:00 [facility] Pneumococcal 2019-08-10 Completed [facility] o f Polysaccharide, 00:00:00 [facility] PPSV23 (PNEUMOVAX) Branch TDAP (ADACEL) VACCINE 2019-08-10 Completed [facility] versity of 00:00:00 [facility] TDAP 2019-08-10 Completed [facility] of 00:00:00 [facility] Pneumococcal 2019-08-10 Completed [facility] o f Polysaccharide, 00:00:00 [facility] PPSV23 (PNEUMOVAX) Branch TDAP (ADACEL) VACCINE 2019-08-10 Completed [facility] vers[facility] of 00:00:00 [facility] TDAP 2019-08-10 Completed [facility] 00:00:00 [facility] Pneumococcal 2019-08-10 Completed [facility] o f Polysaccharide, 00:00:00 [facility] PPSV23 (PNEUMOVAX) Branch TDAP (ADACEL) VACCINE 2019-08-10 Completed [facility] vers[facility] of 00:00:00 [facility] TDAP 2019-08-10 Completed [facility] of 00:00:00 [facility] Pneumococcal 2019-08-10 Completed [facility] o f Polysaccharide, 00:00:00 [facility] PPSV23 (PNEUMOVAX) Branch TDAP (ADACEL) VACCINE 2019-08-10 Completed Uni versity of 00:00:00 [facility] TDAP 2019-08-10 Completed [facility] of 00:00:00 [facility] Pneumococcal 2019-08-10 Completed [facility] o f Polysaccharide, 00:00:00 [facility] PPSV23 (PNEUMOVAX) Branch TDAP (ADACEL) VACCINE 2019-08-10 Completed [facility] vers[facility] of 00:00:00 [facility] TDAP 2019-08-10 Completed [facility] of 00:00:00 [facility] Pneumococcal 2019-08-10 Completed [facility] o f Polysaccharide, 00:00:00 [facility] PPSV23 (PNEUMOVAX) Branch TDAP (ADACEL) VACCINE 2019-08-10 Completed [facility] versity of 00:00:00 [facility] TDAP 2019-08-10 Completed [facility] of 00:00:00 [facility] Pneumococcal 2019-08-10 Completed [facility] o f Polysaccharide, 00:00:00 [facility] PPSV23 (PNEUMOVAX) Branch TDAP (ADACEL) VACCINE 2019-08-10 Completed [facility] vers[facility] of 00:00:00 [facility] TDAP 2019-08-10 Completed [facility] of 00:00:00 [facility] Pneumococcal 2019-08-10 Completed [facility] o f Polysaccharide, 00:00:00 [facility] PPSV23 (PNEUMOVAX) Branch TDAP (ADACEL) VACCINE 2019-08-10 Completed [facility] vers[facility] of 00:00:00 [facility] TDAP 2019-08-10 Completed [facility] of 00:00:00 [facility] Pneumococcal 2019-08-10 Completed [facility] o f Polysaccharide, 00:00:00 [facility] PPSV23 (PNEUMOVAX) Branch TDAP (ADACEL) VACCINE 2019-08-10 Completed [facility] vers[facility] of 00:00:00 [facility] TDAP 2019-08-10 Completed [facility] of 00:00:00 [facility] Pneumococcal 2019-08-10 Completed [facility] o f Polysaccharide, 00:00:00 [facility] PPSV23 (PNEUMOVAX) Branch TDAP (ADACEL) VACCINE 2019-08-10 Completed [facility] vers[facility] of 00:00:00 [facility] TDAP 2019-08-10 Completed [facility] of 00:00:00 [facility] Pneumococcal 2019-08-10 Completed [facility] o f Polysaccharide, 00:00:00 [facility] PPSV23 (PNEUMOVAX) Branch TDAP (ADACEL) VACCINE 2019-08-10 Completed [facility] vers[facility] of 00:00:00 [facility] TDAP 2019-08-10 Completed [facility] of 00:00:00 [facility] Pneumococcal 2019-08-10 Completed [facility] o f Polysaccharide, 00:00:00 [facility] PPSV23 (PNEUMOVAX) Branch TDAP (ADACEL) VACCINE 2019-08-10 Completed Uni versity of 00:00:00 [facility] TDAP 2019-08-10 Completed [facility] of 00:00:00 [facility] Pneumococcal 2019-08-10 Completed [facility] o f Polysaccharide, 00:00:00 [facility] PPSV23 (PNEUMOVAX) Branch TDAP (ADACEL) VACCINE 2019-08-10 Completed [facility] versity of 00:00:00 [facility] TDAP 2019-08-10 Completed [facility] of 00:00:00 [facility] Pneumococcal 2019-08-10 Completed [facility] o f Polysaccharide, 00:00:00 [place] [facility] PPSV23 (PNEUMOVAX) Branch TDAP (ADACEL) VACCINE 2019-08-10 Completed [facility] versity of 00:00:00 [facility] TDAP 2019-08-10 Completed [facility] of 00:00:00 [facility] Pneumococcal 2019-08-10 Completed [facility] o f Polysaccharide, 00:00:00 [place] [facility] PPSV23 (PNEUMOVAX) Branch TDAP (ADACEL) VACCINE 2019-08-10 Completed [facility] versity of 00:00:00 [facility] TDAP 2019-08-10 Completed [facility] of 00:00:00 [facility] Pneumococcal 2019-08-10 Completed [facility] o f Polysaccharide, 00:00:00 [place] [facility] PPSV23 (PNEUMOVAX) Branch TDAP (ADACEL) VACCINE 2019-08-10 Completed [facility] versity of 00:00:00 [facility] TDAP 2019-08-10 Completed [facility] of 00:00:00 [facility] Pneumococcal 2019-08-10 Completed [facility] o f Polysaccharide, 00:00:00 [facility] PPSV23 (PNEUMOVAX) Branch TDAP (ADACEL) VACCINE 2019-08-10 Completed [facility] versity of 00:00:00 [facility] TDAP 2019-08-10 Completed [facility] of 00:00:00 [facility] Pneumococcal 2019-08-10 Completed [facility] o f Polysaccharide, 00:00:00 [place] [facility] PPSV23 (PNEUMOVAX) Branch TDAP (ADACEL) VACCINE 2019-08-10 Completed [facility] versity of 00:00:00 [facility] TDAP 2019-08-10 Completed [facility] of 00:00:00 [facility] Pneumococcal 2019-08-10 Completed [facility] o f Polysaccharide, 00:00:00 [place] [facility] PPSV23 (PNEUMOVAX) Branch TDAP (ADACEL) VACCINE 2019-08-10 Completed [facility] versity of 00:00:00 [facility] TDAP 2019-08-10 Completed [facility] of 00:00:00 [facility] Pneumococcal 2019-08-10 Completed [facility] o f Polysaccharide, 00:00:00 [place] [facility] PPSV23 (PNEUMOVAX) Branch TDAP (ADACEL) VACCINE 2019-08-10 Completed Uni versity of 00:00:00 [facility] TDAP 2019-08-10 Completed [facility] of 00:00:00 [facility] Pneumococcal 2019-08-10 Completed [facility] o f Polysaccharide, 00:00:00 [facility] PPSV23 (PNEUMOVAX) Branch TDAP (ADACEL) VACCINE 2019-08-10 Completed Uni versity of 00:00:00 [facility] TDAP 2019-08-10 Completed [facility] of 00:00:00 [facility] Pneumococcal 2019-08-10 Completed [facility] o f Polysaccharide, 00:00:00 [place] [facility] PPSV23 (PNEUMOVAX) Branch TDAP (ADACEL) VACCINE 2019-08-10 Completed [facility] versity of 00:00:00 [facility] TDAP 2019-08-10 Completed [facility] of 00:00:00 [facility] Pneumococcal 2019-08-10 Completed [facility] o f Polysaccharide, 00:00:00 [place] [facility] PPSV23 (PNEUMOVAX) Branch TDAP (ADACEL) VACCINE 2019-08-10 Completed [facility] versity of 00:00:00 [facility] TDAP 2019-08-10 Completed [facility] of 00:00:00 [facility] Pneumococcal 2019-08-10 Completed [facility] o f Polysaccharide, 00:00:00 [place] [facility] PPSV23 (PNEUMOVAX) Branch TDAP (ADACEL) VACCINE 2019-08-10 Completed [facility] versity of 00:00:00 [facility] TDAP 2019-08-10 Completed [facility] of 00:00:00 [facility] Pneumococcal 2019-08-10 Completed [facility] o f Polysaccharide, 00:00:00 [place] [facility] PPSV23 (PNEUMOVAX) Branch TDAP (ADACEL) VACCINE 2019-08-10 Completed [facility] versity of 00:00:00 [facility] TDAP 2019-08-10 Completed [facility] of 00:00:00 [facility] Pneumococcal 2019-08-10 Completed [facility] o f Polysaccharide, 00:00:00 [place] [facility] PPSV23 (PNEUMOVAX) Branch TDAP (ADACEL) VACCINE 2019-08-10 Completed Uni versity of 00:00:00 [facility] TDAP 2019-08-10 Completed [facility] of 00:00:00 [facility] Pneumococcal 2019-08-10 Completed [facility] o f Polysaccharide, 00:00:00 [facility] ical PPSV23 (PNEUMOVAX) Branch TDAP (ADACEL) VACCINE 2019-08-10 Completed Uni versity of 00:00:00 [facility] TDAP 2019-08-10 Completed University of 00:00:00 [facility] Influenza Virus 2019-07-04 Completed Universit y of Vaccine 00:00:00 [facility] Influenza Virus 2019-07-04 Completed Universit [facility] of Vaccine Recomb Quad 00:00:00 [facility] Preserv and ABX Branc h Free 18-64 YRS Influenza Virus 2019-07-04 Completed [facility]ine 00:00:00 [facility] Influenza Virus 2019-07-04 Completed [facility] Vaccine Recomb Quad 00:00:00 [facility], Preserv and ABX Branc h Free 18-64 YRS Influenza Virus 2019-07-04 Completed [facility] Vaccine 00:00:00 [facility] Influenza Virus 2019-07-04 Completed [facility] Vaccine Recomb Quad 00:00:00 [facility], Preserv and ABX Branc h Free 18-64 YRS Influenza Virus 2019-07-04 Completed [facility] Vaccine 00:00:00 [facility] Influenza Virus 2019-07-04 Completed [facility] Vaccine Recomb Quad 00:00:00 [facility], Preserv and ABX Branc h Free 18-64 YRS Influenza Virus 2019-07-04 Completed [facility] Vaccine 00:00:00 [facility] Influenza Virus 2019-07-04 Completed [facility] Vaccine Recomb Quad 00:00:00 [facility], Preserv and ABX Branc h Free 18-64 YRS Influenza Virus 2019-07-04 Completed [facility] Vaccine 00:00:00 [facility] Influenza Virus 2019-07-04 Completed [facility] Vaccine Recomb Quad 00:00:00 [facility], Preserv and ABX Branc h Free 18-64 YRS Influenza Virus 2019-07-04 Completed [facility] Vaccine 00:00:00 [facility] Influenza Virus 2019-07-04 Completed [facility] Vaccine Recomb Quad 00:00:00 [facility], Preserv and ABX Branc h Free 18-64 YRS Influenza Virus 2019-07-04 Completed [facility] Vaccine 00:00:00 [facility] Influenza Virus 2019-07-04 Completed [facility] Vaccine Recomb Quad 00:00:00 [facility], Preserv and ABX Branc h Free 18-64 YRS Influenza Virus 2019-07-04 Completed [facility] Vaccine 00:00:00 [facility] Influenza Virus 2019-07-04 Completed [facility] Vaccine Recomb Quad 00:00:00 [facility], Preserv and ABX Branc h Free 18-64 YRS Influenza Virus 2019-07-04 Completed [facility] Vaccine 00:00:00 [facility] Influenza Virus 2019-07-04 Completed [facility] Vaccine Recomb Quad 00:00:00 [facility], Preserv and ABX Branc h Free 18-64 YRS Influenza Virus 2019-07-04 Completed [facility] Vaccine 00:00:00 [facility] Influenza Virus 2019-07-04 Completed [facility] Vaccine Recomb Quad 00:00:00 [facility], Preserv and ABX Branc h Free 18-64 YRS Influenza Virus 2019-07-04 Completed [facility] Vaccine 00:00:00 [facility] Influenza Virus 2019-07-04 Completed [facility] Vaccine Recomb Quad 00:00:00 [facility], Preserv and ABX Branc h Free 18-64 YRS Influenza Virus 2019-07-04 Completed [facility] Vaccine 00:00:00 [facility] Influenza Virus 2019-07-04 Completed [facility] Vaccine Recomb Quad 00:00:00 [facility], Preserv and ABX Branc h Free 18-64 YRS Influenza Virus 2019-07-04 Completed [facility] Vaccine 00:00:00 [facility] Influenza Virus 2019-07-04 Completed [facility] Vaccine Recomb Quad 00:00:00 [facility], Preserv and ABX Branc h Free 18-64 YRS Influenza Virus 2019-07-04 Completed [facility] Vaccine 00:00:00 [facility] Influenza Virus 2019-07-04 Completed [facility] Vaccine Recomb Quad 00:00:00 [facility], Preserv and ABX Branc h Free 18-64 YRS Influenza Virus 2019-07-04 Completed [facility] Vaccine 00:00:00 [facility] Influenza Virus 2019-07-04 Completed [facility] Vaccine Recomb Quad 00:00:00 [facility], Preserv and ABX Branc h Free 18-64 YRS Influenza Virus 2019-07-04 Completed [facility] Vaccine 00:00:00 [facility] Influenza Virus 2019-07-04 Completed [facility] Vaccine Recomb Quad 00:00:00 [facility], Preserv and ABX Branc h Free 18-64 YRS Influenza Virus 2019-07-04 Completed [facility] Vaccine 00:00:00 [facility] Influenza Virus 2019-07-04 Completed [facility] Vaccine Recomb Quad 00:00:00 [facility], Preserv and ABX Branc h Free 18-64 YRS Influenza Virus 2019-07-04 Completed [facility] Vaccine 00:00:00 [facility] Influenza Virus 2019-07-04 Completed [facility] Vaccine Recomb Quad 00:00:00 [facility], Preserv and ABX Branc h Free 18-64 YRS Influenza Virus 2019-07-04 Completed [facility] Vaccine 00:00:00 [facility] Influenza Virus 2019-07-04 Completed [facility] Vaccine Recomb Quad 00:00:00 [facility], Preserv and ABX Branc h Free 18-64 YRS Influenza Virus 2019-07-04 Completed [facility] Vaccine 00:00:00 [facility] Influenza Virus 2019-07-04 Completed [facility] Vaccine Recomb Quad 00:00:00 [facility], Preserv and ABX Branc h Free 18-64 YRS Influenza Virus 2019-07-04 Completed [facility] Vaccine 00:00:00 [facility] Influenza Virus 2019-07-04 Completed [facility] Vaccine Recomb Quad 00:00:00 [facility], Preserv and ABX Branc h Free 18-64 YRS Influenza Virus 2019-07-04 Completed [facility] Vaccine 00:00:00 [facility] Influenza Virus 2019-07-04 Completed [facility] Vaccine Recomb Quad 00:00:00 [facility], Preserv and ABX Branc h Free 18-64 YRS Influenza Virus 2019-07-04 Completed [facility] Vaccine 00:00:00 [facility] Influenza Virus 2019-07-04 Completed [facility] Vaccine Recomb Quad 00:00:00 [facility], Preserv and ABX Branc h Free 18-64 YRS Influenza Virus 2019-07-04 Completed [facility] Vaccine 00:00:00 [facility] Influenza Virus 2019-07-04 Completed [facility] Vaccine Recomb Quad 00:00:00 [facility], Preserv and ABX Branc h Free 18-64 YRS Influenza Virus 2019-07-04 Completed [facility] Vaccine 00:00:00 [facility] Influenza Virus 2019-07-04 Completed [facility] Vaccine Recomb Quad 00:00:00 [facility], Preserv and ABX Branc h Free 18-64 YRS Influenza Virus 2019-07-04 Completed [facility] Vaccine 00:00:00 [facility] Influenza Virus 2019-07-04 Completed [facility] Vaccine Recomb Quad 00:00:00 [facility], Preserv and ABX Branc h Free 18-64 YRS Influenza Virus 2019-07-04 Completed [facility] Vaccine 00:00:00 [facility] Influenza Virus 2019-07-04 Completed [facility] Vaccine Recomb Quad 00:00:00 [facility], Preserv and ABX Branc h Free 18-64 YRS Influenza Virus 2019-07-04 Completed [facility] Vaccine 00:00:00 [facility] Influenza Virus 2019-07-04 Completed [facility] Vaccine Recomb Quad 00:00:00 [facility], Preserv and ABX Branc h Free 18-64 YRS Influenza Virus 2019-07-04 Completed [facility] Vaccine 00:00:00 [facility] Influenza Virus 2019-07-04 Completed [facility] Vaccine Recomb Quad 00:00:00 [facility], Preserv and ABX Branc h Free 18-64 YRS Influenza Virus 2019-07-04 Completed [facility] Vaccine 00:00:00 [facility] Influenza Virus 2019-07-04 Completed [facility] Vaccine Recomb Quad 00:00:00 [facility], Preserv and ABX Branc h Free 18-64 YRS Influenza Virus 2019-07-04 Completed [facility] Vaccine 00:00:00 [facility] Influenza Virus 2019-07-04 Completed [facility] Vaccine Recomb Quad 00:00:00 [facility], Preserv and ABX Branc h Free 18-64 YRS Influenza Virus 2019-07-04 Completed [facility] Vaccine 00:00:00 [facility] Influenza Virus 2019-07-04 Completed [facility] Vaccine Recomb Quad 00:00:00 [facility], Preserv and ABX Branc h Free 18-64 YRS Influenza Virus 2019-07-04 Completed [facility] Vaccine 00:00:00 [facility] Influenza Virus 2019-07-04 Completed [facility] Vaccine Recomb Quad 00:00:00 [facility], Preserv and ABX Branc h Free 18-64 YRS Influenza Virus 2019-07-04 Completed [facility] Vaccine 00:00:00 [facility] Influenza Virus 2019-07-04 Completed [facility] Vaccine Recomb Quad 00:00:00 [facility], Preserv and ABX Branc h Free 18-64 YRS Influenza Virus 2019-07-04 Completed [facility] Vaccine 00:00:00 [facility] Influenza Virus 2019-07-04 Completed [facility] Vaccine Recomb Quad 00:00:00 [facility], Preserv and ABX Branc h Free 18-64 YRS Influenza Virus 2019-07-04 Completed [facility] Vaccine 00:00:00 [facility] Influenza Virus 2019-07-04 Completed [facility] Vaccine Recomb Quad 00:00:00 [facility], Preserv and ABX Branc h Free 18-64 YRS Influenza Virus 2019-07-04 Completed [facility] Vaccine 00:00:00 [facility] Influenza Virus 2019-07-04 Completed [facility] Vaccine Recomb Quad 00:00:00 [facility], Preserv and ABX Branc h Free 18-64 YRS Influenza Virus 2019-07-04 Completed [facility] Vaccine 00:00:00 [facility] Influenza Virus 2019-07-04 Completed [facility] Vaccine Recomb Quad 00:00:00 [facility], Preserv and ABX Branc h Free 18-64 YRS Influenza Virus 2019-07-04 Completed [facility] Vaccine 00:00:00 [facility] Influenza Virus 2019-07-04 Completed [facility] Vaccine Recomb Quad 00:00:00 [facility], Preserv and ABX Branc h Free 18-64 YRS Influenza Virus 2019-07-04 Completed [facility] Vaccine 00:00:00 [facility] Influenza Virus 2019-07-04 Completed [facility] Vaccine Recomb Quad 00:00:00 [facility], Preserv and ABX Branc h Free 18-64 YRS Influenza Virus 2019-07-04 Completed [facility] Vaccine 00:00:00 [facility] Influenza Virus 2019-07-04 Completed [facility] Vaccine Recomb Quad 00:00:00 [facility], Preserv and ABX Branc h Free 18-64 YRS Influenza Virus 2019-07-04 Completed [facility] Vaccine 00:00:00 [facility] Influenza Virus 2019-07-04 Completed [facility] Vaccine Recomb Quad 00:00:00 [facility], Preserv and ABX Branc h Free 18-64 YRS Influenza Virus 2019-07-04 Completed [facility] Vaccine 00:00:00 [facility] Influenza Virus 2019-07-04 Completed [facility] Vaccine Recomb Quad 00:00:00 [facility], Preserv and ABX Branc h Free 18-64 YRS Influenza Virus 2019-07-04 Completed [facility] Vaccine 00:00:00 [facility] Influenza Virus 2019-07-04 Completed [facility] Vaccine Recomb Quad 00:00:00 [facility], Preserv and ABX Branc h Free 18-64 YRS Influenza Virus 2019-07-04 Completed [facility] Vaccine 00:00:00 [facility] Influenza Virus 2019-07-04 Completed [facility] Vaccine Recomb Quad 00:00:00 [facility], Preserv and ABX Branc h Free 18-64 YRS Influenza Virus 2019-07-04 Completed [facility] Vaccine 00:00:00 [facility] Influenza Virus 2019-07-04 Completed [facility] Vaccine Recomb Quad 00:00:00 [facility], Preserv and ABX Branc h Free 18-64 YRS Influenza Virus 2019-07-04 Completed [facility] Vaccine 00:00:00 [facility] Influenza Virus 2019-07-04 Completed [facility] Vaccine Recomb Quad 00:00:00 [facility], Preserv and ABX Branc h Free 18-64 YRS Influenza Virus 2019-07-04 Completed [facility] Vaccine 00:00:00 [facility] Influenza Virus 2019-07-04 Completed [facility] Vaccine Recomb Quad 00:00:00 [facility], Preserv and ABX Branc h Free 18-64 YRS Influenza Virus 2019-07-04 Completed [facility] Vaccine 00:00:00 [facility] Influenza Virus 2019-07-04 Completed [facility] Vaccine Recomb Quad 00:00:00 [facility], Preserv and ABX Branc h Free 18-64 YRS Influenza Virus 2019-07-04 Completed [facility] Vaccine 00:00:00 [facility] Influenza Virus 2019-07-04 Completed [facility] Vaccine Recomb Quad 00:00:00 [facility], Preserv and ABX Branc h Free 18-64 YRS Influenza Virus 2019-07-04 Completed [facility] Vaccine 00:00:00 [facility] Influenza Virus 2019-07-04 Completed [facility] Vaccine Recomb Quad 00:00:00 [facility], Preserv and ABX Branc h Free 18-64 YRS Influenza Virus 2019-07-04 Completed [facility] Vaccine 00:00:00 [facility] Influenza Virus 2019-07-04 Completed [facility] Vaccine Recomb Quad 00:00:00 [facility], Preserv and ABX Branc h Free 18-64 YRS Influenza Virus 2019-07-04 Completed [facility] Vaccine 00:00:00 [facility] Influenza Virus 2019-07-04 Completed [facility] Vaccine Recomb Quad 00:00:00 [facility], Preserv and ABX Branc h Free 18-64 YRS Influenza Virus 2019-07-04 Completed [facility] Vaccine 00:00:00 [facility] Influenza Virus 2019-07-04 Completed [facility] Vaccine Recomb Quad 00:00:00 [facility], Preserv and ABX Branc h Free 18-64 YRS Influenza Virus 2018-06-30 Completed [facility]ine [facility] 2018-06-30 Completed [facility] Vaccine Quad IM 3+ 00:00:[facility] Influenza Virus 2018-06-30 Completed [facility] Vaccine Quad IM 3+ 00:00:00 [facility] Influenza Virus 2018-06-30 Completed [facility] Vaccine Quad IM 3+ 00:00:00 [facility] Influenza Virus 2018-06-30 Completed [facility] Vaccine Quad IM 3+ 00:00:00 [facility] Influenza Virus 2018-06-30 Completed [facility] Vaccine Quad IM 3+ 00:00:00 [facility] Influenza Virus 2018-06-30 Completed [facility] Vaccine Quad IM 3+ 00:00:00 [facility] Influenza Virus 2018-06-30 Completed [facility] Vaccine Quad IM 3+ 00:00:00 [facility] Influenza Virus 2018-06-30 Completed [facility] Vaccine Quad IM 3+ 00:00:00 [facility] Influenza Virus 2018-06-30 Completed [facility] Vaccine Quad IM 3+ 00:00:00 [facility] Influenza Virus 2018-06-30 Completed [facility] Vaccine Quad IM 3+ 00:00:00 [facility] Influenza Virus 2018-06-30 Completed [facility] Vaccine Quad IM 3+ 00:00:00 [facility] Influenza Virus 2018-06-30 Completed [facility] Vaccine Quad IM 3+ 00:00:00 [facility] Influenza Virus 2018-06-30 Completed [facility] Vaccine Quad IM 3+ 00:00:00 [facility] Influenza Virus 2018-06-30 Completed [facility] Vaccine Quad IM 3+ 00:00:00 [facility] Influenza Virus 2018-06-30 Completed [facility] Vaccine Quad IM 3+ 00:00:00 [facility] Influenza Virus 2018-06-30 Completed [facility] Vaccine Quad IM 3+ 00:00:00 [facility] Influenza Virus 2018-06-30 Completed [facility] Vaccine Quad IM 3+ 00:00:00 [facility] Influenza Virus 2018-06-30 Completed [facility] Vaccine Quad IM 3+ 00:00:00 [facility] Influenza Virus 2018-06-30 Completed [facility] Vaccine Quad IM 3+ 00:00:00 [facility] Influenza Virus 2018-06-30 Completed [facility] Vaccine Quad IM 3+ 00:00:00 [facility] Influenza Virus 2018-06-30 Completed [facility] Vaccine Quad IM 3+ 00:00:00 [facility] Influenza Virus 2018-06-30 Completed [facility] Vaccine Quad IM 3+ 00:00:00 [facility] Influenza Virus 2018-06-30 Completed [facility] Vaccine Quad IM 3+ 00:00:00 [facility] Influenza Virus 2018-06-30 Completed [facility] Vaccine Quad IM 3+ 00:00:00 [facility] Influenza Virus 2018-06-30 Completed [facility] Vaccine Quad IM 3+ 00:00:00 [facility] Influenza Virus 2018-06-30 Completed [facility] Vaccine Quad IM 3+ 00:00:00 [facility] Influenza Virus 2018-06-30 Completed [facility] Vaccine Quad IM 3+ 00:00:00 [facility] Influenza Virus 2018-06-30 Completed [facility] Vaccine Quad IM 3+ 00:00:00 [facility] Influenza Virus 2018-06-30 Completed [facility] Vaccine Quad IM 3+ 00:00:00 [facility] Influenza Virus 2018-06-30 Completed [facility] Vaccine Quad IM 3+ 00:00:00 [facility] Influenza Virus 2018-06-30 Completed [facility] Vaccine Quad IM 3+ 00:00:00 [facility] Influenza Virus 2018-06-30 Completed [facility] Vaccine Quad IM 3+ 00:00:00 [facility] Influenza Virus 2018-06-30 Completed [facility] Vaccine Quad IM 3+ 00:00:00 [facility] Influenza Virus 2018-06-30 Completed [facility] Vaccine Quad IM 3+ 00:00:00 [facility] Influenza Virus 2018-06-30 Completed [facility] Vaccine Quad IM 3+ 00:00:00 [facility] Influenza Virus 2018-06-30 Completed [facility] Vaccine Quad IM 3+ 00:00:00 [facility] Influenza Virus 2018-06-30 Completed [facility] Vaccine Quad IM 3+ 00:00:00 [facility] Influenza Virus 2018-06-30 Completed [facility] Vaccine Quad IM 3+ 00:00:00 [facility] Influenza Virus 2018-06-30 Completed [facility] Vaccine Quad IM 3+ 00:00:00 [facility] Influenza Virus 2018-06-30 Completed [facility] Vaccine Quad IM 3+ 00:00:00 [facility] Influenza Virus 2018-06-30 Completed [facility] Vaccine Quad IM 3+ 00:00:00 [facility] Influenza Virus 2018-06-30 Completed [facility] Vaccine Quad IM 3+ 00:00:00 [facility] Influenza Virus 2018-06-30 Completed [facility] Vaccine Quad IM 3+ 00:00:00 [facility] Influenza Virus 2018-06-30 Completed [facility] Vaccine Quad IM 3+ 00:00:00 [facility] Influenza Virus 2018-06-30 Completed [facility] Vaccine Quad IM 3+ 00:00:00 [facility] Influenza Virus 2018-06-30 Completed [facility] Vaccine Quad IM 3+ 00:00:00 [facility] Influenza Virus 2018-06-30 Completed [facility] Vaccine Quad IM 3+ 00:00:00 [facility] Influenza Virus 2018-06-30 Completed [facility] Vaccine Quad IM 3+ 00:00:00 [facility] Influenza Virus 2018-06-30 Completed [facility] Vaccine Quad IM 3+ 00:00:00 [facility] Influenza Virus 2018-06-30 Completed [facility] Vaccine Quad IM 3+ 00:00:00 [facility] Influenza Virus 2018-06-30 Completed [facility] Vaccine Quad IM 3+ 00:00:00 [facility] Influenza Virus 2018-06-30 Completed [facility] Vaccine Quad IM 3+ 00:00:00 [facility] Influenza Virus 2018-06-30 Completed [facility] Vaccine Quad IM 3+ 00:00:00 [facility] Influenza Virus 2018-06-30 Completed [facility] Vaccine Quad IM 3+ 00:00:00 [facility] Influenza Virus 2017-06-15 Completed [facility] [...] [facility] 6+ [facility] Pneumococcal 13 2016-03-07 Completed [facility] Conjugate, PCV13 00:00:00 [facility] dical (Prevnar 13) Branch Meningococcal B, OMV 2016-03-07 Completed [facility] ersity of 00:00:00 [facility] Pneumococcal 13 2016-03-07 Completed [facility] Conjugate, PCV13 00:00:00 [facility] dical (Prevnar 13) Branch Meningococcal B, OMV 2016-03-07 Completed [facility] ers[facility] of 00:00:00 [facility] Pneumococcal 13 2016-03-07 Completed [facility] Conjugate, PCV13 00:00:00 [facility] dical (Prevnar 13) Branch Meningococcal B, OMV 2016-03-07 Completed [facility] ers[facility] of 00:00:00 [facility] Pneumococcal 13 2016-03-07 Completed [facility] Conjugate, PCV13 00:00:00 [facility] dical (Prevnar 13) Branch Meningococcal B, OMV 2016-03-07 Completed [facility] ers[facility] of 00:00:00 [facility] Pneumococcal 13 2016-03-07 Completed [facility] Conjugate, PCV13 00:00:00 [facility] dical (Prevnar 13) Branch Meningococcal B, OMV 2016-03-07 Completed [facility] ers[facility] of 00:00:00 [facility] Pneumococcal 13 2016-03-07 Completed [facility] Conjugate, PCV13 00:00:00 [facility] (Pre[facility]ar 13) [facility] Meningococcal B, V 2016-03-07 Completed [facility] ers[facility] of 00:00:00 [facility] Pneumococcal 13 2016-03-07 Completed [facility] Conjugate, PCV13 00:00:00 [facility] (Prevnar 13) Branch Meningococcal B, V 2016-03-07 Completed [facility] ers[facility] of 00:00:00 [facility] Pneumococcal 13 2016-03-07 Completed [facility] Conjugate, PCV13 00:00:00 [facility] (Prevnar 13) Branch Meningococcal B, V 2016-03-07 Completed [facility] of 00:00:00 [facility] Pneumococcal 13 2016-03-07 Completed [facility] Conjugate, PCV13 00:00:00 [facility] (Prevnar 13) Branch Meningococcal B, V 2016-03-07 Completed [facility] ers[facility] of 00:00:00 [facility] Pneumococcal 13 2016-03-07 Completed [facility] Conjugate, PCV13 00:00:00 [facility] (Prevnar 13) Branch Meningococcal B, [facility] 2016-03-07 Completed [facility] ers[facility] of 00:00:00 [facility] Pneumococcal 13 2016-03-07 Completed [facility] Conjugate, PCV13 00:00:00 [facility] (Prevnar 13) Branch Meningococcal B, V 2016-03-07 Completed [facility] of 00:00:00 [facility] Pneumococcal 13 2016-03-07 Completed [facility] Conjugate, PCV13 00:00:00 [facility] (Prevnar 13) Branch Meningococcal B, V 2016-03-07 Completed [facility] ers[facility] of 00:00:00 [facility] Pneumococcal 13 2016-03-07 Completed [facility] Conjugate, PCV13 00:00:00 [facility] (Prevnar 13) Branch Meningococcal B, V 2016-03-07 Completed [facility] ers[facility] of 00:00:00 [facility] Pneumococcal 13 2016-03-07 Completed [facility] Conjugate, PCV13 00:00:00 [facility] (Prevnar 13) Branch Meningococcal B, [facility] 2016-03-07 Completed [facility] ers[facility] of 00:00:00 [facility] Pneumococcal 13 2016-03-07 Completed [facility] Conjugate, PCV13 00:00:00 [facility] (Prevnar 13) Branch Meningococcal B, [facility] 2016-03-07 Completed [facility] ers[facility] of 00:00:00 [facility] Pneumococcal 13 2016-03-07 Completed [facility] Conjugate, PCV13 00:00:00 [facility] (Prevnar 13) Branch Meningococcal B, V 2016-03-07 Completed [facility] of 00:00:00 [facility] Pneumococcal 13 2016-03-07 Completed [facility] Conjugate, PCV13 00:00:00 [facility] (Prevnar 13) Branch Meningococcal B, [facility] 2016-03-07 Completed [facility] ers[facility] of 00:00:00 [facility] Pneumococcal 13 2016-03-07 Completed [facility] Conjugate, PCV13 00:00:00 [facility] (Prevnar 13) Branch Meningococcal B, [facility] 2016-03-07 Completed [facility] ers[facility] of 00:00:00 [facility] Pneumococcal 13 2016-03-07 Completed [facility] Conjugate, PCV13 00:00:00 [facility] (Prevnar 13) Branch Meningococcal B, [facility] 2016-03-07 Completed [facility] ers[facility] of 00:00:00 [facility] Pneumococcal 13 2016-03-07 Completed [facility] Conjugate, PCV13 00:00:00 [facility] (Prevnar 13) Branch Meningococcal B, [facility] 2016-03-07 Completed [facility] ers[facility] of 00:00:00 [facility] Pneumococcal 13 2016-03-07 Completed [facility] Conjugate, PCV13 00:00:00 [facility] (Prevnar 13) Branch Meningococcal B, [facility] 2016-03-07 Completed [facility] ers[facility] of 00:00:00 [facility] Pneumococcal 13 2016-03-07 Completed [facility] Conjugate, PCV13 00:00:00 [facility] (Prevnar 13) Branch Meningococcal B, [facility] 2016-03-07 Completed [facility] of 00:00:00 [facility] Pneumococcal 13 2016-03-07 Completed [facility] Conjugate, PCV13 00:00:00 [facility] (Prevnar 13) Branch Meningococcal B, [facility] 2016-03-07 Completed [facility] ers[facility] of 00:00:00 [facility] Pneumococcal 13 2016-03-07 Completed Universit y of Conjugate, PCV13 00:00:00 [place] [facility] (Prevnar 13) Branch Meningococcal B, V 2016-03-07 Completed Univ ersity of 00:00:00 [facility] Pneumococcal 13 2016-03-07 Completed Universit y of Conjugate, PCV13 00:00:00 [place] [facility] (Prevnar 13) [facility] Meningococcal B, V 2016-03-07 Completed Univ ersity of 00:00:00 [facility] Pneumococcal 13 2016-03-07 Completed Universit y of Conjugate, PCV13 00:00:00 [place] [facility] (Prevnar 13) [facility] Meningococcal B, [facility] 2016-03-07 Completed Univ ersity of 00:00:00 [facility] Pneumococcal 13 2016-03-07 Completed Universit y of Conjugate, PCV13 00:00:00 [place] [facility] (Prevnar 13) [facility] Meningococcal B, [facility] 2016-03-07 Completed Univ ersity of 00:00:00 [facility] Pneumococcal 13 2016-03-07 Completed Universit y of Conjugate, PCV13 00:00:00 [place] [facility] (Prevnar 13) [facility] Meningococcal B, [facility] 2016-03-07 Completed Univ ersity of 00:00:00 [facility] Pneumococcal 13 2016-03-07 Completed Universit y of Conjugate, PCV13 00:00:00 [facility] dical (Prevnar 13) Branch Meningococcal B, [facility] 2016-03-07 Completed Univ ersity of 00:00:00 [facility] Pneumococcal 13 2016-03-07 Completed Universit y of Conjugate, PCV13 00:00:00 [facility] dical (Prevnar 13) Branch Meningococcal B, [facility] 2016-03-07 Completed Univ ersity of 00:00:00 [facility] Pneumococcal 13 2016-03-07 Completed Universit y of Conjugate, PCV13 00:00:00 [place] [facility] (Prevnar 13) [facility] Meningococcal B, [facility] 2016-03-07 Completed Univ ersity of 00:00:00 [facility] Pneumococcal 13 2016-03-07 Completed Universit y of Conjugate, PCV13 00:00:00 [place] [facility] (Prevnar 13) Branch Meningococcal B, [facility] 2016-03-07 Completed Univ ersity of 00:00:00 [facility] Pneumococcal 13 2016-03-07 Completed Universit y of Conjugate, PCV13 00:00:00 [place] [facility] (Prevnar 13) Branch Meningococcal B, [facility] 2016-03-07 Completed Univ ersity of 00:00:00 [facility] Pneumococcal 13 2016-03-07 Completed Universit y of Conjugate, PCV13 00:00:00 [place] [facility] (Prevnar 13) Branch Meningococcal B, [facility] 2016-03-07 Completed Univ ersity of 00:00:00 [facility] Pneumococcal 13 2016-03-07 Completed [facility]it y of Conjugate, PCV13 00:00:00 [place] [facility] (Prevnar 13) Branch Meningococcal B, [facility] 2016-03-07 Completed Univ ersity of 00:00:00 [facility] Pneumococcal 13 2016-03-07 Completed [facility]it y of Conjugate, PCV13 00:00:00 [place] [facility] (Prevnar 13) Branch Meningococcal B, [facility] 2016-03-07 Completed Univ ersity of 00:00:00 [facility] Pneumococcal 13 2016-03-07 Completed Universit y of Conjugate, PCV13 00:00:00 [place] [facility] (Prevnar 13) Branch Meningococcal B, [facility] 2016-03-07 Completed Univ ersity of 00:00:00 [facility] Pneumococcal 13 2016-03-07 Completed Universit y of Conjugate, PCV13 00:00:00 [place] [facility] (Prevnar 13) Branch Meningococcal B, [facility] 2016-03-07 Completed Univ ersity of 00:00:00 [facility] Pneumococcal 13 2016-03-07 Completed Universit y of Conjugate, PCV13 00:00:00 [place] [facility] (Prevnar 13) Branch Meningococcal B, [facility] 2016-03-07 Completed Univ ersity of 00:00:00 [facility] Pneumococcal 13 2016-03-07 Completed Universit y of Conjugate, PCV13 00:00:00 [place] [facility] (Prevnar 13) Branch Meningococcal B, [facility] 2016-03-07 Completed Univ ersity of 00:00:00 [facility] Pneumococcal 13 2016-03-07 Completed Universit y of Conjugate, PCV13 00:00:00 [place] [facility] (Prevnar 13) Branch Meningococcal B, [facility] 2016-03-07 Completed Univ ersity of 00:00:00 [facility] Pneumococcal 13 2016-03-07 Completed [facility]it y of Conjugate, PCV13 00:00:00 [place] [facility] (Prevnar 13) Branch Meningococcal B, [facility] 2016-03-07 Completed Univ ersity of 00:00:00 [facility] Pneumococcal 13 2016-03-07 Completed Universit y of Conjugate, PCV13 00:00:00 [place] [facility] (Prevnar 13) Branch Meningococcal B, [facility] 2016-03-07 Completed Univ ersity of 00:00:00 [facility] Pneumococcal 13 2016-03-07 Completed Universit y of Conjugate, PCV13 00:00:00 [place] [facility] (Prevnar 13) Branch Meningococcal B, [facility] 2016-03-07 Completed Univ ersity of 00:00:00 [facility] Pneumococcal 13 2016-03-07 Completed Universit y of Conjugate, PCV13 00:00:00 [place] [facility] (Prevnar 13) Branch Meningococcal B, [facility] 2016-03-07 Completed Univ ersity of 00:00:00 [facility] Pneumococcal 13 2016-03-07 Completed Universit y of Conjugate, PCV13 00:00:00 [place] [facility] (Prevnar 13) Branch Meningococcal B, [facility] 2016-03-07 Completed Univ ersity of 00:00:00 [facility] Pneumococcal 13 2016-03-07 Completed Universit y of Conjugate, PCV13 00:00:00 [place] [facility] (Prevnar 13) Branch Meningococcal B, [facility] 2016-03-07 Completed Univ ersity of 00:00:00 [facility] Pneumococcal 13 2016-03-07 Completed [facility]it y of Conjugate, PCV13 00:00:00 [place] [facility] (Prevnar 13) Branch Meningococcal B, [facility] 2016-03-07 Completed Univ ersity of 00:00:00 [facility] Pneumococcal 13 2016-03-07 Completed [facility]it y of Conjugate, PCV13 00:00:00 [place] [facility] (Prevnar 13) Branch Meningococcal B, [facility] 2016-03-07 Completed Univ ersity of 00:00:00 [facility] Pneumococcal 13 2016-03-07 Completed Universit y of Conjugate, PCV13 00:00:00 [place] [facility] (Prevnar 13) Branch Meningococcal B, [facility] 2016-03-07 Completed Univ ersity of 00:00:00 [facility] Pneumococcal 13 2016-03-07 Completed Universit y of Conjugate, PCV13 00:00:00 [place] [facility] (Prevnar 13) Branch Meningococcal B, OMV 2016-03-07 Completed Univ ersity of 00:00:00 [facility] Pneumococcal 13 2016-03-07 Completed Universit y of Conjugate, PCV13 00:00:00 [place] [facility] (Prevnar 13) Branch Meningococcal B, OMV 2016-03-07 Completed Univ ersity of 00:00:00 [facility] Pneumococcal 13 2016-03-07 Completed Universit y of Conjugate, PCV13 00:00:00 [place] [facility] (Prevnar 13) Branch Meningococcal B, V 2016-03-07 Completed Univ ersity of 00:00:00 [facility] Pneumococcal 13 2016-03-07 Completed [facility]it y of Conjugate, PCV13 00:00:00 [place] [facility] (Prevnar 13) [facility] Meningococcal B, V 2016-03-07 Completed Univ ersity of 00:00:00 [facility] Pneumococcal 13 2016-03-07 Completed [facility]it y of Conjugate, PCV13 00:00:00 [place] [facility] (Prevnar 13) [facility] Meningococcal B, V 2016-03-07 Completed Univ ersity of 00:00:00 [facility] Heamophilus Influenza 2015-11-13 Completed Uni versity of B 00:00:00 [facility] Heamophilus Influenza 2015-11-13 Completed Uni versity of B 00:00:00 [facility] Heamophilus Influenza 2015-11-13 Completed Uni versity of B 00:00:00 [facility] Heamophilus Influenza 2015-11-13 Completed Uni versity of B 00:00:00 [facility] Heamophilus Influenza 2015-11-13 Completed Uni versity of B 00:00:00 [facility] Heamophilus Influenza 2015-11-13 Completed Uni versity of B 00:00:00 [facility] Heamophilus Influenza 2015-11-13 Completed Uni versity of B 00:00:00 [facility] Heamophilus Influenza 2015-11-13 Completed Uni versity of B 00:00:00 [facility] Heamophilus Influenza 2015-11-13 Completed Uni versity of B 00:00:00 [facility] Heamophilus Influenza 2015-11-13 Completed Uni versity of B 00:00:00 [facility] Heamophilus Influenza 2015-11-13 Completed Uni versity of B 00:00:00 [facility] Heamophilus Influenza 2015-11-13 Completed Uni versity of B 00:00:00 [facility] Heamophilus Influenza 2015-11-13 Completed Uni versity of B 00:00:00 [facility] Heamophilus Influenza 2015-11-13 Completed Uni versity of B 00:00:00 [facility] Heamophilus Influenza 2015-11-13 Completed Uni versity of B 00:00:00 [facility] Heamophilus Influenza 2015-11-13 Completed Uni versity of B 00:00:00 [facility] Heamophilus Influenza 2015-11-13 Completed Uni versity of B 00:00:00 [facility] Heamophilus Influenza 2015-11-13 Completed Uni versity of B 00:00:00 [facility] Heamophilus Influenza 2015-11-13 Completed Uni versity of B 00:00:00 [facility] Heamophilus Influenza 2015-11-13 Completed Uni versity of B 00:00:00 [facility] Heamophilus Influenza 2015-11-13 Completed Uni versity of B 00:00:00 [facility] Heamophilus Influenza 2015-11-13 Completed Uni versity of B 00:00:00 [facility] Heamophilus Influenza 2015-11-13 Completed Uni versity of B 00:00:00 [facility] Heamophilus Influenza 2015-11-13 Completed Uni versity of B 00:00:00 [facility] Heamophilus Influenza 2015-11-13 Completed Uni versity of B 00:00:00 [facility] Heamophilus Influenza 2015-11-13 Completed Uni versity of B 00:00:00 [facility] Heamophilus Influenza 2015-11-13 Completed Uni versity of B 00:00:00 [facility] Heamophilus Influenza 2015-11-13 Completed Uni versity of B 00:00:00 [facility] Heamophilus Influenza 2015-11-13 Completed Uni versity of B 00:00:00 [facility] Heamophilus Influenza 2015-11-13 Completed Uni versity of B 00:00:00 [facility] Heamophilus Influenza 2015-11-13 Completed Uni versity of B 00:00:00 [facility] Heamophilus Influenza 2015-11-13 Completed Uni versity of B 00:00:00 [facility] Heamophilus Influenza 2015-11-13 Completed Uni versity of B 00:00:00 [facility] Heamophilus Influenza 2015-11-13 Completed Uni versity of B 00:00:00 [facility] Heamophilus Influenza 2015-11-13 Completed Uni versity of B 00:00:00 [facility] Heamophilus Influenza 2015-11-13 Completed Uni versity of B 00:00:00 [facility] Heamophilus Influenza 2015-11-13 Completed Uni versity of B 00:00:00 [facility] Heamophilus Influenza 2015-11-13 Completed Uni versity of B 00:00:00 [facility] Heamophilus Influenza 2015-11-13 Completed Uni versity of B 00:00:00 [facility] Heamophilus Influenza 2015-11-13 Completed Uni versity of B 00:00:00 [facility] Heamophilus Influenza 2015-11-13 Completed Uni versity of B 00:00:00 [facility] Heamophilus Influenza 2015-11-13 Completed Uni versity of B 00:00:00 [facility] Heamophilus Influenza 2015-11-13 Completed Uni versity of B 00:00:00 [facility] Heamophilus Influenza 2015-11-13 Completed Uni versity of B 00:00:00 [facility] Heamophilus Influenza 2015-11-13 Completed Uni versity of B 00:00:00 [facility] Heamophilus Influenza 2015-11-13 Completed Uni versity of B 00:00:00 [facility] Heamophilus Influenza 2015-11-13 Completed Uni versity of B 00:00:00 [facility] Heamophilus Influenza 2015-11-13 Completed Uni versity of B 00:00:00 [facility] Heamophilus Influenza 2015-11-13 Completed Uni versity of B 00:00:00 [facility] Heamophilus Influenza 2015-11-13 Completed Uni versity of B 00:00:00 [facility] Heamophilus Influenza 2015-11-13 Completed Uni versity of B 00:00:00 [facility] Heamophilus Influenza 2015-11-13 Completed Uni versity of B 00:00:00 [facility] Heamophilus Influenza 2015-11-13 Completed Uni versity of B 00:00:00 [facility] Heamophilus Influenza 2015-11-13 Completed Uni versity of B 00:00:00 [facility] Heamophilus Influenza 2015-11-13 Completed Uni versity of B 00:00:00 [facility] Meningococcal 2015-11-12 Completed University of Polysaccharide 00:00:00 [...] (MCV4P) TDAP 2015-10-31 Completed University of 00:00:00 [facility] TDAP 2015-10-31 Completed University of 00:00:00 [facility] TDAP 2015-10-31 Completed University of 00:00:00 [facility] TDAP 2015-10-31 Completed University of 00:00:00 [facility] TDAP 2015-10-31 Completed University of 00:00:00 [facility] TDAP 2015-10-31 Completed University of 00:00:00 [facility] TDAP 2015-10-31 Completed University of 00:00:00 [facility] TDAP 2015-10-31 Completed University of 00:00:00 [facility] TDAP 2015-10-31 Completed University of 00:00:00 [facility] TDAP 2015-10-31 Completed University of 00:00:00 [facility] TDAP 2015-10-31 Completed University of 00:00:00 [facility] TDAP 2015-10-31 Completed University of 00:00:00 [facility] TDAP 2015-10-31 Completed University of 00:00:00 [facility] TDAP 2015-10-31 Completed University of 00:00:00 [facility] TDAP 2015-10-31 Completed University of 00:00:00 [facility] TDAP 2015-10-31 Completed University of 00:00:00 [facility] TDAP 2015-10-31 Completed University of 00:00:00 [facility] TDAP 2015-10-31 Completed University of 00:00:00 [facility] TDAP 2015-10-31 Completed University of 00:00:00 [facility] TDAP 2015-10-31 Completed University of 00:00:00 [facility] TDAP 2015-10-31 Completed University of 00:00:00 [facility] TDAP 2015-10-31 Completed University of 00:00:00 [facility] TDAP 2015-10-31 Completed University of 00:00:00 [facility] TDAP 2015-10-31 Completed University of 00:00:00 [facility] TDAP 2015-10-31 Completed University of 00:00:00 [facility] TDAP 2015-10-31 Completed University of 00:00:00 [facility] TDAP 2015-10-31 Completed University of 00:00:00 [facility] TDAP 2015-10-31 Completed University of 00:00:00 [facility] TDAP 2015-10-31 Completed University of 00:00:00 [facility] TDAP 2015-10-31 Completed University of 00:00:00 [facility] TDAP 2015-10-31 Completed University of 00:00:00 [facility] TDAP 2015-10-31 Completed University of 00:00:00 [facility] TDAP 2015-10-31 Completed University of 00:00:00 [facility] TDAP 2015-10-31 Completed University of 00:00:00 [facility] TDAP 2015-10-31 Completed University of 00:00:00 [facility] TDAP 2015-10-31 Completed University of 00:00:00 [facility] TDAP 2015-10-31 Completed University of 00:00:00 [facility] TDAP 2015-10-31 Completed University of 00:00:00 [facility] TDAP 2015-10-31 Completed University of 00:00:00 [facility] TDAP 2015-10-31 Completed University of 00:00:00 [facility] TDAP 2015-10-31 Completed University of 00:00:00 [facility] TDAP 2015-10-31 Completed University of 00:00:00 [facility] TDAP 2015-10-31 Completed University of 00:00:00 [facility] TDAP 2015-10-31 Completed University of 00:00:00 [facility] TDAP 2015-10-31 Completed University of 00:00:00 [facility] TDAP 2015-10-31 Completed University of 00:00:00 [facility] TDAP 2015-10-31 Completed University of 00:00:00 [facility] TDAP 2015-10-31 Completed University of 00:00:00 [facility] TDAP 2015-10-31 Completed University of 00:00:00 [facility] TDAP 2015-10-31 Completed University of 00:00:00 [facility] TDAP 2015-10-31 Completed University of 00:00:00 [facility] TDAP 2015-10-31 Completed University of 00:00:00 [facility] TDAP 2015-10-31 Completed University of 00:00:00 [facility] TDAP 2015-10-31 Completed University of 00:00:00 [facility] TDAP 2015-10-31 Completed University of 00:00:00 [facility] Pneumococcal 2014-04-01 Completed University o f Polysaccharide, [...] Time Observation Value Comments Source Systolic blood 2022-07-27 13:03:00 112 mm[Hg] Univer sity of pressure [facility] Diastolic blood 2022-07-27 13:03:00 75 mm[Hg] Unive rsity of pressure [facility] Heart rate 2022-07-27 13:03:00 98 /min [facility] Body temperature 2022-07-27 13:03:[facility] 2022-[facility]-27 13:03:00 102.967 kg [facility] BMI 2022-07-27 13:03:00 41.52 kg/m2 [facility] Oxygen saturation in 2022-07-27 13:03:00 94 /min University of Arterial blood by [facility] Pulse oximetry Branch Systolic blood 2022-06-17 15:45:00 104 mm[Hg] Univer sity of pressure [facility] Diastolic blood 2022-06-17 15:45:00 69 mm[Hg] Unive rsity of pressure [facility] Heart rate 2022-06-17 15:45:00 97 /min [facility] Body height 2022-06-17 15:45:00 157.5 cm [facility] Body weight 2022-06-17 15:45:00 101.878 kg [facility] BMI 2022-06-17 15:45:00 41.08 kg/m2 [facility] Oxygen saturation in 2022-06-17 15:45:00 98 /min University of Arterial blood by [facility] Pulse oximetry Branch Systolic blood 2022-06-15 13:01:00 101 mm[Hg] Univer sity of [facility] Diastolic blood 2022-06-15 13:01:00 68 mm[Hg] Unive rsity of pressure [facility] Heart rate 2022-06-15 13:01:00 74 /min [facility] Body temperature 2022-06-15 13:01:00 36.89 Melissa [facility] Body weight 2022-06-15 13:01:00 102.967 kg [facility] BMI 2022-06-15 13:01:00 41.52 kg/m2 [facility] Systolic blood 2022-03-27 12:44:00 131 mm[Hg] Univer sity of [facility] Diastolic blood 2022-03-27 12:44:00 83 mm[Hg] Unive rsity of pressure [facility] Heart rate 2022-03-27 12:44:00 102 /min [facility] Body temperature 2022-03-27 12:44:00 37.11 Melissa [facility] Respiratory rate 2022-03-27 12:44:00 18 /min [facility] Body height 2022-03-27 12:44:00 157.5 cm [facility] Body weight 2022-03-27 12:44:00 96.616 kg [facility] BMI 2022-03-27 12:44:00 38.96 kg/m2 [facility] Oxygen saturation in 2022-03-27 12:44:00 98 /min University of Arterial blood by [facility] Pulse oximetry Branch Systolic blood 2022-03-02 15:40:00 113 mm[Hg] Univer sity of pressure [facility] Diastolic blood 2022-03-02 15:40:00 72 mm[Hg] Unive rsity of pressure [facility] Heart rate 2022-03-02 15:40:00 82 /min [facility] Respiratory rate 2022-03-02 15:40:00 16 /min [facility] Oxygen saturation in 2022-03-02 15:40:00 97 /min University of Arterial blood by [facility] Pulse oximetry Branch Body temperature 2022-03-02 15:23:00 36.28 Melissa [facility] Body weight 2022-02-24 17:00:00 100.245 kg [facility] BMI 2022-02-24 17:00:00 40.42 kg/m2 [facility] Systolic blood 2022-03-02 15:25:00 98 mm[Hg] Univer sity of [facility] Diastolic blood 2022-03-02 15:25:00 55 mm[Hg] Unive rsity of pressure [facility] Heart rate 2022-03-02 15:25:00 85 /min [facility] Respiratory rate 2022-03-02 15:25:00 18 /min [facility] Oxygen saturation in 2022-03-02 15:25:00 100 /min University of Arterial blood by [facility] Pulse oximetry Branch Body temperature 2022-03-02 15:23:00 36.28 Melissa [facility] Body weight 2022-02-24 17:00:00 100.245 kg [facility] BMI 2022-02-24 17:00:00 40.42 kg/m2 Universi [facility] Procedures Procedure Date / Time Performing Source Performed Clinician SARS-COV-2 COVID-19 CHRISTELLE-SUCROSE 2022-07-27 Tray Jolly Merom of VACCINE 12 YRS+, BIVALENT 0.3ML, 13:13:29 [facility], (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) Br anch DISABILITY/FMLA 2022-07-01 [facility] 05:01:00 Unassigned, No [facility] MR THORACIC SPINE WO CONTRAST 2022-06-30 Brunilda, Crystal Un iversity of 16:22:01 [facility] MR CERVICAL SPINE WO CONTRAST 2022-06-30 Brunilda, Crystal Un iversity of 16:20:35 [facility] CONSENT/REFUSAL FOR DIAGNOSIS AND 2022-06-30 [facility] 14:32:21 Unassigned, No [facility] CONSENT/REFUSAL FOR DIAGNOSIS AND 2022-06-30 [facility] 14:32:20 Unassigned, No [facility] INSURANCE CORRESPONDENCE 2022-06-17 [facility] of 05:01:00 Unassigned, No [facility] POWER OF PRESIDENT ERGONOMIC CONSULTING 2022-06-01 [facility] 05:01:00 Unassigned, No [facility] POWER OF PRESIDENT ERGONOMIC CONSULTING 2022-05-13 [facility] 05:01:00 Unassigned, No [facility] DME/SUPPLY JUSTIFICATION 2022-05-06 Doctor [facility] of 05:01:00 Unassigned, No [facility] EMG/NCV 2022-04-08 Brunilda [facility] 14:43:00 [facility] CONSENT/REFUSAL FOR DIAGNOSIS AND 2022-03-27 [facility] 12:40:53 Unassigned, No [facility] PHYSICIAN ORDERS 2022-03-19 [facility] 05:01:00 Unassigned, No [facility] COLONOSCOPY (ENDO) 2022-03-02 Tray Jolly Merom of 14:43:32 [facility] COLONOSCOPY (ENDO) 2022-03-02 Tray Jolly Merom of 14:43:32 [facility] COLONOSCOPY 2022-03-02 Cecile Márquez Merom of 14:02:00 [facility] ESOPHAGOGASTRODUODENOSCOPY 2022-03-02 Willi [facility] ersity of 14:02:00 [facility] EGD (ENDO) 2022-03-02 Rik [facility] of 13:53:24 Edward [facility]ENDO[facility] 13:53:24 Edward [facility] POCT GLUCOSE(AGE >30DAYS) 2022-03-02 [facility] ersity of 12:59:00 [facility] POCT GLUCOSE(AGE >30DAYS) 2022-03-02 [facility] ersity of 12:59:00 [facility] POCT GLUCOSE (AUTOMATED) 2022-03-02 [facility] 12:58[facility]00 [facility] POCT GLUCOSE (AUTOMATED) [facility]22[facility]03-[facility] 12:58:00 [facility] [facility] PO[facility] TEST 2022-03-02 [facility] of 12:48:00 [facility] POCT TEST 2022-03-02 [facility] of 12:48:00 [facility] DAY SURGERY - ADC 2022-03-02 [facility] of 05:01:00 Unassigned, No [facility] Name Branch DME/SUPPLY JUSTIFICATION 2022-01-04 Doctor [facility] ity of 05:01:00 Unassigned, No [facility] Name Branch DME/SUPPLY JUSTIFICATION 2022-01-04 Doctor [facility] ity of 05:01:00 Unassigned, No [facility] Name Branch DISCLOSURE AND CONSENT, MEDICAL 2021-12-28 [facility] of AND SURGICAL PROCEDURES 05:01:00 Unassigned, No [facility] dical Name Branch DISCLOSURE AND CONSENT, MEDICAL 2021-12-28 [facility] AND SURGICAL PROCEDURES 05:01:00 Unassigned, No [facility] dical Name Branch Encounters Start End Encounter Admission Attending Care Care Encounter Source Date/Time Date/Time Type Type Clinicians Facility Department ID 2022-02-16 Outpatient IVETT LOPEZ MARCUS [id number] Univers 10:29:45 CECILE flores [facility] 2021-12-01 Outpatient IVETT LOPEZ MARCUS [id number] Univers 13:05:09 CECILE flores [facility] 2021-11-04 Outpatient YUSEF LOPEZMB MARCUS [id number] Univers 15:43:22 CECILE ity of [facility] 2021-07-27 Emergency [facility] [id number] Univers 19:11:28 ity of [facility] 2021-07-27 Emergency [facility] [id number] Univers 10:12:30 ity of [facility] 2021-07-27 Emergency [facility] [id number] Univers 06:35:13 ity of [facility] 2021-07-27 Emergency [facility] [id number] Univers 04:01:19 ity of [facility] 2021-07-26 Emergency [facility] [id number] Univers 12:06:22 ity of [facility] 2021-07-26 Emergency [facility] [id number] Univers 11:43:46 ity [facility] 2022-08-24 2022-08-24 Outpatient Brock JOLLY [facility] [id number] Univers 09:00:00 09:00:00 TRAY [facility] 2022-08-24 2022-08-24 Outpatient R RIK [facility] [id number] Univers 09:00:00 09:00:00 TRAY [facility] 2022-08-13 2022-08-13 Outpatient Brock HINTON [facility] [id number] Univers 14:00:00 14:00:00 MATEO [facility] 2022-08-06 2022-08-06 Eduarda [facility] 1.2.840.114 [id number] Univers 00:00:00 00:00:00 [facility] 350.1.13.10 it y of [place] 4.2.7.2.686 Emanuel as JOLLY?BLEA [id number] [address] MEDICAL OFFICE BUILDING 2022-07-29 2022-07-29 [facility] 1.2.840.114 [id number] Univers 00:00:00 00:00:00 [facility] HEALTH 350.1.13.10 it y of [place] 4.2.7.2.686 Emanuel as JOLLY?BLEA [phone] [address] MEDICAL OFFICE [facility] 2022-07-27 2022-07-27 Outpatient R RIK [facility] [id number] Univers 08:00:00 08:25:43 TRAY itjay of [facility] 2022-07-27 2022-07-27 Office Rik [facility] 1.2.840.114 [id number] Univers 08:00:00 08:25:43 Visit [facility] 350.1.13.10 it y of [place] [facility] 4.2.7.2.686 Emanuel as JOLLY?BLEA [phone] [address] OFFICE [facility] 2022-07-08 2022-07-08 Refill Rik [facility] 1.2.840.114 [id number] Univers 00:00:00 00:00:00 Tray GREGORIO 350.1.13.10 i ty of [place] [facility] 4.2.7.2.686 [place] [facility] [id number] [facility] [address] 2022-07-07 2022-07-07 Outpatient R BRUNILDA STELLA [facility] [id number] Univers 00:00:00 00:00:00 STELLA WORLEY it y of [facility] 2022-07-01 2022-07-01 Orders Doctor CLAU 1.2.840.114 [id number] Univers 00:00:00 00:00:00 Only Unassigned, GRAYSON 350.1.13.10 ity of [place] [facility] 4.2.7.2.686 Emanuel as [id number] [facility] [address] 2022-06-30 2022-06-30 Outpatient R BRUNILDA STELLA [facility] [id number] Univers 09:34:33 23:59:00 BRUNILDA STELLA it y of [facility] 2022-06-30 2022-06-30 [facility] Stella Worley [facility] 1.2.840.114 [id number] Univers 09:34:33 23:59:00 Encounter JG 350.1.13.10 ity of [facility] 4.2.7.2.686 [place] [phone] [facility] [address] 2022-06-30 2022-06-30 [facility] Brunilda Stella [facility] 1.2.840.114 [id number] Univers 09:34:16 23:59:00 Encounter ANGLECHRISTELLE 350.1.13.10 ity of [place] 4.2.7.2.686 [place] [phone] [facility] [address] 2022-06-30 2022-06-30 Orders Doctor CLAU 1.2.840.114 [id number] Univers 00:00:00 00:00:00 Only Unassigned, GRAYSON 350.1.13.10 ity of [place] [facility] 4.2.7.2.686 Emanuel as [phone] [facility] [address] 2022-06-30 2022-06-30 Telephone Stella Worley [facility] 1.2.840.114 [id number] Univers 00:00:00 00:00:00 HEALTH 350.1.13.10 it y of [place] 4.2.7.2.686 [place] RAVIA [id number] [address] OFFICE BUILDING 2022-06-24 2022-06-24 Outpatient R STELLA WORLEY [facility] [id number] Univers 00:00:00 00:00:00 STELLA WORLEY it y of [facility] 2022-06-24 2022-06-24 Telephone Stella Worley [facility] 1.2.840.114 [id number] Univers 00:00:00 00:00:00 HEALTH 350.1.13.10 it y of [place] 4.2.7.2.686 [place] RAVIA [id number] [address] OFFICE BUILDING 2022-06-21 2022-06-21 Outpatient R RIK [facility] [id number] Univers 11:00:00 11:00:00 TRAY ity of [facility] 2022-06-21 2022-06-21 Telephone Rik [facility] 1.2.840.114 [id number] Univers 00:00:00 00:00:00 Tray HEALTH 350.1.13.10 it y of [place] GREGORIO 4.2.7.2.686 Emanuel as JOLLY?BLEA [phone] Oh gabi [address] MEDICAL OFFICE BUILDING 2022-06-17 2022-06-17 Office Stella Worley [facility] 1.2.840.114 [id number] Univers 11:00:00 11:30:00 Visit HEALTH 350.1.13.10 it y of [place] 4.2.7.2.686 [place] mitzy LOPEZ [id number] [address] OFFICE BUILDING 2022-06-17 2022-06-17 Outpatient R STELLA WORLEY [facility] [id number] Univers 11:00:00 11:00:00 STELLA WORLEY it y of [facility] 2022-06-17 2022-06-17 Refill Stella Worley [facility] 1.2.840.114 [id number] Univers 00:00:00 00:00:00 HEALTH 350.1.13.10 it y of [place] 4.2.7.2.686 [place] mitzy LOPEZ [id number] [address] OFFICE BUILDING 2022-06-17 2022-06-17 Orders Doctor CLAU 1.2.840.114 [id number] Univers 00:00:00 00:00:00 Only Unassigned, GRAYSON 350.1.13.10 ity of [place] [facility] 4.2.7.2.686 Emanuel as [id number] [address] 2022-06-16 2022-06-16 Telephone [facility] 1.2.840.114 [id number] Univers 00:00:00 00:00:00 Tray HEALTH 350.1.13.10 it y of [place] 4.2.7.2.686 Emanuel as JOLLY?BLEA [phone] Oh gabi CHAIREZ [address] [place] [address] OFFICE BUILDING 2022-06-15 2022-06-15 Outpatient R RIK [facility] [id number] Univers 08:00:00 08:25:29 TRAY ity of [facility] 2022-06-15 2022-06-15 [facility] 1.2.840.114 [id number] Univers 08:00:00 08:25:29 Visit [facility] 350.1.13.10 it y of [place] 4.2.7.2.686 Emanuel as JOLLY?BLEA [phone] Oh gabi JACOBS[address] OFFICE BUILDING 2022-06-14 2022-06-14 Telephone M[facility]quezFormerly [facility] 1.2.840.114 [id number] Univers 00:00:00 00:00:00 Cecile GREGORIO 350.1.13.10 i ty of [place] 4.2.7.2.686 [place] PROFESS[place] [phone] [address] 2022-06-11 2022-06-11 Telephone [facility] 1.2.840.114 [id number] Univers 00:00:00 00:00:00 Tray HEALTH 350.1.13.10 it y of [place] 4.2.7.2.686 Emanuel as JOLLY?BLEA [phone] [address] OFFICE [facility] 2022-06-09 2022-06-09 Telephone [facility] 1.2.840.114 [id number] Univers 00:00:00 00:00:00 Tray HEALTH 350.1.13.10 it y of [place] 4.2.7.2.686 Emanuel as JOLLY?BLEA [id number] [address] OFFICE [facility] 2022-06-04 2022-06-04 RefStella Hamilton [facility] 1.2.840.114 [id number] Univers 00:00:00 00:00:00 HEALTH 350.1.13.10 it y of [place] 4.2.7.2.686 [place] LOPEZ [id number] [address] OFFICE [facility] 2022-06-04 2022-06-04 Telephone Ry Edge [facility] 1.2.840.114 [id number] Univers 00:00:00 00:00:00 HEALTH 350.1.13.10 it y of [place] 4.2.7.2.686 Emanuel as JOLLY?BLEA [phone] [address] OFFICE [facility] 2022-06-04 2022-06-04 Susan [facility] 1.2.240.175 [id number] Univers 00:00:00 00:00:00 Cecile GREGORIO 350.1.13.10 i ty of [place] 4.2.7.2.686 [place] PROFESS[place] [id number] [address] 2022-06-03 2022-06-03 Outpatient R STELLA WORLEY [facility] [id number] Univers 09:30:00 09:30:00 STELLA WORLEY it y of [facility] 2022-06-02 2022-06-02 Stella Barrow [facility] 1.2.840.114 [id number] Univers 00:00:00 00:00:00 HEALTH 350.1.13.10 it y of [place] 4.2.7.2.686 [place] LOPEZ [id number] [address] OFFICE [facility] 2022-06-02 2022-06-02 RefStella Hamilton [facility] 1.2.840.114 [id number] Univers 00:00:00 00:00:00 HEALTH 350.1.13.10 it y of [place] 4.2.7.2.686 [place] LOPEZ [id number] [address] 2022-06-02 2022-06-02 Telephone Willi [facility] 1.2.840.114 [id number] Univers 00:00:00 00:00:00 Cecile GREGORIO 350.1.13.10 i ty of [place] 4.2.7.2.686 [place] PROF[place] [phone] Oh dical [address] 2022-06-01 2022-06-01 Orders Doctor CLAU 1.2.840.114 [id number] Univers 00:00:00 00:00:00 Only Unassigned, GRAYSON 350.1.13.10 ity of [place] [facility] 4.2.7.2.686 Emanuel as [id number] [address] 2022-06-01 2022-06-01 Stella Barrow [facility] 1.2.840.114 [id number] Univers 00:00:00 00:00:00 HEALTH 350.1.13.10 it y of [place] 4.2.7.2.686 [place] LOPEZ [id number] [address] OFFICE [facility] 2022-06-01 2022-06-01 Refill Willi [facility] 1.2.534.212 [id number] Univers 00:00:00 00:00:00 Cecile GREGORIO 350.1.13.10 i ty of [place] 4.2.7.2.686 [place] [id number] Oh gabi BARNEY 188 [facility] 2022-05-28 2022-05-28 Reffranchesca Jolly [facility] 1.2.840.114 [id number] Univers 00:00:00 00:00:00 [facility] 350.1.13.10 it y of [place] GREG[place] 4.2.7.2.686 Emanuel as JOLLY?BLEA [phone] Oh gabi CHAIREZ [address] MEDICAL OFFICE [facility] 2022-05-26 2022-05-26 RefStella Hamilton [facility] 1.2.840.114 [id number] Univers 00:00:00 00:00:00 HEALTH 350.1.13.10 it y of [place] 4[place]2.7.2.686 [place] LOPEZ [id number] [address] 2022-05-18 2022-05-18 Outpatient R SANJAY SÁNCHEZ [facility] [id number] Univers 09:00:00 09:00:00 ity [facility] 2022-05-17 2022-05-17 Outpatient R RIK [facility] [id number] Univers 09:00:00 09:00:00 TRAY y [facility] 2022-05-13 2022-05-13 Orders Doctor CLAU 1.2.840.114 [id number] Univers 00:00:00 00:00:00 Only Unassigned, GRAYSON 350.1.13.10 ity of [place] [facility] 4.2.7.2.686 Emanuel as [id number] [address] 2022-05-13 2022-05-13 Telephone [facility] 1.2.840.114 [id number] Univers 00:00:00 00:00:00 [facility] 350.1.13.10 it y of [place] 4.2.7.2.686 Emanuel as JOLLY?BLEA [phone] Oh gabi [address] OFFICE [facility] 2022-05-10 2022-05-10 Outpatient R RIK [facility] [id number] Univers 16:15:00 16:15:00 TRAY ity [facility] 2022-05-10 2022-05-10 Outpatient R STELLA WORLEY [facility] [id number] Univers 00:00:00 00:00:00 STELLA WORELY it jay of [facility] 2022-05-06 2022-05-06 Telephone Stella Worley [facility] 1.2.840.114 [id number] Univers 00:00:00 00:00:00 HEALTH 350.1.13.10 it y of [place] 4[place]2.7.2.686 [place] LOPEZ [id number] [facility] [address] OFFICE BUILDING 2022-05-06 2022-05-06 Orders Doctor CLAU 1.2.840.114 [id number] Univers 00:00:00 00:00:00 Only Unassigned, GRAYSON 350.1.13.10 ity of [place] [facility] 4.2.7.2.686 Emanuel as [id number] [place] [address] [address] 2022-04-29 2022-04-29 Outpatient Brock AGUILAR [facility] [id number] Univers 14:00:00 14:00:00 CLAU ity [facility] 2022-04-14 2022-04-14 Outpatient R VIK OLIVEIRA [facility] [id number] Univers 09:00:00 09:00:00 ity of [facility] 2022-04-12 2022-04-12 [facility] 1.2.840.114 [id number] Univers 00:00:00 00:00:00 Ricardo GREGORIO 350.1.13.10 ity of [facility] 4.2.7.2.686 [place] [facility] [phone] Oh dical NAL [address] BUILDING 2022-04-09 2022-04-09 Outpatient Brock BARR [facility] [id number] Univers 11:00:00 11:00:00 ISAC ity [facility] 2022-04-08 2022-04-08 [facility] 1.2.840.114 [id number] Univers 08:30:00 23:59:00 [facility] 350.1.13.10 ity of [place] 4.2.7.2.686 [place] RAVIA [id number] [facility] [address] OFFICE BUILDING 2022-04-08 2022-04-08 Outpatient R AGUSTINA [facility] [id number] Univers 08:30:00 23:59:00 KAMAKSHI ity o f [facility] 2022-04-08 2022-04-08 Telephone Stella Worley [facility] 1.2.840.114 [id number] Univers 00:00:00 00:00:00 HEALTH 350.1.13.10 it y of [place] 4.2.7.2.686 [place] RAVIA [id number] [facility] [address] OFFICE BUILDING 2022-04-02 2022-04-02 Outpatient R WIL [facility] [id number] Univers 09:30:00 09:30:00 MATEO flores [facility] 2022-03-31 2022-03-31 Telephone [facility] 1.2.840.114 [id number] Univers 00:00:00 00:00:00 [facility] 350.1.13.10 it y of [place] 4.2.7.2.686 Emanuel as JOLLY?BLEA [phone] Oh samirroshan CHAIREZ [address] MEDICAL OFFICE [facility] 2022-03-27 2022-03-27 Emergency [facility] 1.2.547.880 [id number] Univers 07:48:00 08:22:00 Destiny BYERSCHRISTELLE 350.1.13.10 i ty of [facility] 4.2.7.2.686 [place]UE[place] [id number] [facility] [address] 2022-03-27 2022-03-27 Emergency X [facility] ERT [id number] Univers 07:48:00 08:22:00 DESTINY phillipsjay [facility] 2022-03-27 2022-03-27 Orders Doctor OLGUIN 1.2.840.114 [id number] Univers 00:00:00 00:00:00 Only Unassigned, GRAYSON 350.1.13.10 ity of [place] [facility] 4.2.7.2.686 Emanuel as [id number] [facility] [address] 2022-03-24 2022-03-24 Telephone [facility] 1.2.840.114 [id number] Univers 00:00:00 00:00:00 [facility] HEALTH 350.1.13.10 it y of [place] 4.2.7.2.686 Emanuel as JOLLY?BLEA [id number] [address] MEDICAL OFFICE BUILDING 2022-03-19 2022-03-19 Orders Doctor CLAU 1.2.840.114 [id number] Univers 00:00:00 00:00:00 Only Unassigned, GRAYSON 350.1.13.10 ity of [place] [facility] 4.2.7.2.686 Emanuel as [id number] [address] 2022-03-19 2022-03-19 Telephone [facility] 1.2.840.114 [id number] Univers 00:00:00 00:00:00 Tray HEALTH 350.1.13.10 it y of [place] 4.2.7.2.686 Emanuel as JOLLY?BLEA [id number] [address] OFFICE [facility] 2022-03-17 2022-03-17 Telephone [facility] 1.2.840.114 [id number] Univers 00:00:00 00:00:00 [facility] HEALTH 350.1.13.10 it y of [place] 4.2.7.2.686 Emanuel as JOLLY?BLEA [id number] [address] OFFICE [facility] 2022-03-12 2022-03-12 Stella Barrow [facility] 1.2.840.114 [id number] Univers 00:00:00 00:00:00 HEALTH 350.1.13.10 it y of [place].2.686 [place] JOHN [id number] [facility] [address] OFFICE BUILDING 2022-03-08 2022-03-08 Telephone [facility] 1.2.840.114 [id number] Univers 00:00:00 00:00:00 Tray HEALTH 350.1.13.10 it y of [place] 4.2.7.2.686 Emanuel as JOLLY?BLEA [id number] [address] OFFICE BUILDING 2022-03-02 2022-03-02 Hospital [facility] 1.2.840.114 [id number] Univers 07:39:00 11:22:00 Encounter Cecile GREGORIO 350.1.13.10 ity of [place] 4.2.7.2.[place] [id number] [facility] [address] 2022-03-02 2022-03-02 Outpatient [facility] MARCUS [id number] Univers 07:39:00 11:22:00 CECILE ity of [facility] 2022-03-02 2022-03-02 Surgery [facility] 1.2.061.903 [id number] Univers 09:11:00 10:25:00 Cecile GREGORIO 350.1.13.10 i ty of [place] 4.2.7.2.[place] [address] [id number] [facility] [address] 2022-03-02 2022-03-02 Orders Doctor CLAU 1.2.840.114 [id number] Univers 00:00:00 00:00:00 Only Unassigned, GRAYSON 350.1.13.10 ity of [place] [facility] 4.2.7.2.686 Emanuel as [id number] [address] 2022-03-01 2022-03-01 Telephone [facility] 1.2.840.114 [id number] Univers 00:00:00 00:00:00 Cecile GREGORIO 350.1.13.10 i ty of [place] 4.2.7.2.[place] [id number] Oh dical NAL 188 [facility] 2022-03-01 2022-03-01 Reffranchesca [facility]PRES[facility] 1.2.840.114 [id number] Univers 00:00:00 00:00:00 Ricardo GREGORIO 350.1.13.10 ity of [place] 4.2.7.2.686 [place] [id number] Oh dical NAL 059 [facility] 2022-02-25 2022-02-25 [facility] [id number] Univers 11:00:00 11:00:00 TRAY ity of [facility] 2022-02-25 2022-02-25 Telephone Stella Worley [facility] 1.2.840.114 [id number] Univers 00:00:00 00:00:00 HEALTH 350.1.13.10 it y of [place] 4.2.7.2.686 [place] mitzy LOPEZ [id number] [place] [address] [address] OFFICE BUILDING 2022-02-24 2022-02-24 Telephone [facility] 1.2.840.114 [id number] Univers 00:00:00 00:00:00 Tray HEALTH 350.1.13.10 it y of [place] 4.2.7.2.686 Emanuel as JOLLY?BLEA [phone] [address] OFFICE [facility] 2022-02-23 2022-02-23 Telephone [facility] 1.2.840.114 [id number] Univers 00:00:00 00:00:00 Tray HEALTH 350.1.13.10 it y of [place] 4.2.7.2.686 Emanuel as JOLLY?BLEA [id number] [address] OFFICE [facility] 2022-02-22 2022-02-22 Reffranchesca PaulaPRES[facility]TER[facility] 1.2.840.114 [id number] Univers 00:00:00 00:00:00 Wondiful A HEALTH 350.1.13.10 ity of [place] 4.2.7.2.686 Emanuel as JOLLY?BLEA [id number] [address] OFFICE [facility] 2022-02-18 2022-02-18 Patient [facility] 1.2.840.114 [id number] Univers 00:00:00 00:00:00 Secure Msg Tray HEALTH 350.1.13.10 ity of [place] 4.2.7.2.686 Emanuel as JOLLY?BLEA [id number] [address] OFFICE [facility] 2022-02-18 2022-02-18 Telephone [facility] 1.2.840.114 [id number] Univers 00:00:00 00:00:00 Tray [place] 350.1.13.10 i ty of [place] 4.2.7.2.686 [place] ESS[place] [id number] Oh dical SAVITA 044 [facility] 2022-02-16 2022-02-16 Outpatient R RIK [facility] [id number] Univers 09:15:00 09:30:10 TRAY flores [facility] 2022-02-16 2022-02-16 Office [facility] 1.2.840.114 [id number] Univers 09:15:00 09:30:10 Visit [facility] 350.1.13.10 it y of [place] [facility] 4.2.7.2.686 Emanuel as JOLLY?BLEA [phone] Oh gabi CHAIREZ [address] [place] [address] OFFICE [facility] 2022-02-16 2022-02-16 Outpatient R RIK [facility] [id number] Univers 09:15:00 09:15:00 TRAY [facility] 2022-02-16 2022-02-16 Telephone Vik Oliveira [facility] 1..840.114 [id number] Univers 00:00:00 00:00:00 [facility] 350.1.13.10 it y of [place].2.[place].2.[place] L[place] [id number] [address] OFFICE [facility] 2022-02-15 2022-02-15 Outpatient R FLORENCE [facility] [id number] Univers 15:15:00 15:15:00 CAPRICE phillipsjay [facility] 2022-02-14 2022-02-14 Nurse CLAU Zarate 1.2.235.622 [id number] Univers 00:00:00 00:00:00 Triage Young GALICIA 350.1.13.10 it y of HOSPITAL 4.2.7.2.686 Emanuel as [id number] [address] 2022-02-12 2022-02-12 Telephone Rik [facility] 1.2.840.114 [id number] Univers 00:00:00 00:00:00 [facility] 350.1.13.10 it y of [place] GREGORIO 4.2.7.2.686 Emanuel as JOLLY?BLEA [phone] Oh gabi CHAIREZ [address] [place] [address] MEDICAL OFFICE BUILDING 2022-02-11 2022-02-11 Telephone Stella Worley [facility] 1.2.840.114 [id number] Univers 00:00:00 00:00:00 HEALTH 350.1.13.10 [place] [id number] [address] OFFICE BUILDING 2022-02-11 2022-02-11 Telephone Roxanne Vik Tirso [facility] 1.2.840.114 [id number] Univers 00:00:00 00:00:00 HEALTH 350.1.13.10 [place] [id number] [address] OFFICE [facility] 2022-02-10 2022-02-10 Outpatient R NAV ANTONIO [facility] [id number] Univers 00:00:00 00:00:00 ity of [facility] 2022-02-10 2022-02-10 Outpatient NAV GIANG [facility] [id number] Univers 00:00:00 00:00:00 ity of [facility] 2022-02-10 2022-02-10 Orders Doctor CLAU 1..840.114 [id number] Univers 00:00:00 00:00:00 Only Unassigned, GRAYSON 350.1.13.10 ity of [place] [facility] 4.2.7.2.686 Emanuel as [id number] [address] 2022-02-08 2022-02-08 Outpatient R STELLA WORLEY [facility] [id number] Univers 10:00:00 11:34:48 STELLA WORLEY it y of [facility] 2022-02-08 2022-02-08 Office Stella Worley [facility] 1.2.840.114 [id number] Univers 10:00:00 11:34:48 Visit HEALTH 350.1.13.10 [place] [id number] [address] OFFICE BUILDING 2022-02-01 2022-02-01 Telephone Momo DCFRANDY 1.2.961.889 [id number] Univers 00:00:00 00:00:00 Isac S HEALTH 350.1.13.10 it y of [place] 4.2.7.2.686 Emanuel as JOLLY?BLEA [id number] Oh gabi CHAIREZ [address] MEDICAL OFFICE BUILDING 2022-01-28 2022-01-28 Orders Doctor CLAU 1.2.840.114 [id number] Univers 00:00:00 00:00:00 Only Unassigned, GRAYSON 350.1.13.10 ity of [place] [facility] 4.2.7.2.686 Emanuel as [phone] [address] 2022-01-27 2022-01-27 [facility] 1.2.840.114 [id number] Univers 00:00:00 00:00:00 Tray HEALTH 350.1.13.10 it y of [place] 4.2.7.2.686 Emanuel as JOLLY?BLEA [phone] Oh gabi JACOBS [address] [facility] OFFICE [facility] 2022-01-27 2022-01-27 [facility] CENTER 1.2.840.114 [id number] Univers 00:00:00 00:00:00 [facility] 350.1.13.10 it y of Edward [place] 4.2.7.2.686 Emanuel as JOLLY?BLEA [phone] Oh gabi [facility] 044 [facility] OFFICE [facility] 2022-01-27 2022-01-27 Telephone Vik Oliveira [facility] 1.2.840.114 [id number] Univers 00:00:00 00:00:00 HEALTH 350.1.13.10 it y of [place] 4.2.7.2.686 [place] mitzy LOPEZ [phone] [facility] [address] OFFICE BUILDING 2022-01-25 2022-01-25 Outpatient R WIL [facility] [id number] Univers 10:20:49 23:59:00 MATEO itjay of [facility] 2022-01-25 2022-01-25 [facility] 1.2.840.114 [id number] Univers 10:00:00 23:59:00 Encounter Mateo GREGORIO 350.1.13.10 ity of [place] 4.2.7.2.686 [place] [facility] [phone] [facility] [address] 2022-01-25 2022-01-25 Outpatient R WIL [facility] [id number] Univers 00:00:00 00:00:00 MATEO ity of [facility] 2022-01-25 2022-01-25 Orders Doctor CLAU 1.2.840.114 [id number] Univers 00:00:00 00:00:00 Only Unassigned, GRAYSON 350.1.13.10 ity of [place] [facility] 4.2.7.2.686 Emanuel as [phone] [address] 2022-01-22 2022-01-22 Eduarda J[facility]PRES[facility] 1.2.840.114 [id number] Univers 00:00:00 00:00:00 Tray HEALTH 350.1.13.10 it y of [place] 4.2.7.2.686 Emanuel as JOLLY?BLEA [phone] [address] MEDICAL OFFICE [facility] 2022-01-22 2022-01-22 Orders Doctor CLAU 1.2.840.114 [id number] Univers 00:00:00 00:00:00 Only Unassigned, GRAYSON 350.1.13.10 ity of [place] [facility] 4.2.7.2.686 Emanuel as [phone] [address] 2022-01-21 2022-01-21 Reffranchesca PaulaPRESBYTERIAN SANT[facility] 1.2.840.114 [id number] Univers 00:00:00 00:00:00 Wondiful A HEALTH 350.1.13.10 ity of [place] 4.2.7.2.686 Emanuel as JOLLY?BLEA [phone] [address] OFFICE [facility] 2022-01-20 2022-01-20 Susan PaulaPRESBYTERIAN [facility] 1.2.840.114 [id number] Univers 00:00:00 00:00:00 Wondiful A HEALTH 350.1.13.10 ity of [place] 4.2.7.2.686 Emanuel as JOLLY?BLEA [phone] [address] MEDICAL OFFICE [facility] 2022-01-192022-01-19 Telephone [facility] 1.2.840.114 [id number] Univers 00:00:00 00:00:00 Tray HEALTH 350.1.13.10 it y of [place] 4.2.7.2.686 Emanuel as JOLLY?BLEA [phone] Oh dicroshan CHAIREZ 044 [facility] 2022-01-18 2022-01-18 Refill [facility] 1.2.840.114 [id number] Univers 00:00:00 00:00:00 Tray HEALTH 350.1.13.10 it y of [place] 4.2.7.2.686 Emanuel as JOLLY?BLEA [phone] Oh dicroshan CHAIREZ 044 [facility] 2022-01-13 2022-01-13 Telephone [facility] 1.2.840.114 [id number] Univers 00:00:00 00:00:00 [facility] 350.1.13.10 i ty of [facility] 4.2.7.2.686 [place] [phone] Oh dicroshan BARNEY 204 [facility] 2022-01-11 2022-01-11 Outpatient Brock [facility] [id number] Univers 14:45:00 23:59:00 [facility] 2022-01-11 2022-01-11 Outpatient Brock [facility] [id number] Univers 14:45:00 23:59:00 [facility] 2022-01-11 2022-01-11 Office [facility]PRES[facility] 1.2.840.114 [id number] Univers 13:45:00 14:00:00 Visit [facility] 350.1.13.10 it y [facility] 4.2.7.2.686 Emanuel as JOLLY?BLEA [phone] Oh dical CONTRERAS 198 [facility] 2022-01-11 2022-01-11 Outpatient Brock [facility] [id number] Univers 13:45:00 13:45:00 [facility] 2022-01-07 2022-01-07 Telephone [facility] 1.2.840.114 [id number] Univers 00:00:00 00:00:00 Tray HEALTH 350.1.13.10 it y of [place] 4.2.7.2.686 Emanuel as JOLLY?BLEA [phone] [address] OFFICE [facility] 2022-01-06 2022-01-[address] [facility] 1.2.840.114 [id number] Univers 00:00:00 00:00:00 Wondiful A HEALTH 350.1.13.10 ity of [place] 4.2.7.2.686 Emanuel as JOLLY?BLEA [phone] [address] OFFICE [facility] 2022-01-05 2022-01-05 Telephone [facility] 12.840.114 [id number] Univers 00:00:00 00:00:00 [facility] HEALTH 350.1.13.10 it y of [place] 4.2.7.2.686 Emanuel as JOLLY?BLEA [phone] [address] OFFICE [facility] 2022-01-04 2022-01-04 Telephone [facility] 1.2.840.114 [id number] Univers 00:00:00 00:00:00 [facility] HEALTH 350.1.13.10 it y of [place] 4.2.7.2.686 Emanuel as JOLLY?BLEA [phone] [address] 2021-12-31 2021-12-31 Telephone [facility] 1.2.840.114 [id number] Univers 00:00:00 00:00:00 Tray HEALTH 350.1.13.10 it y of [place] 4.2.7.2.686 Emanuel as JOLLY?BLEA [phone] [address] OFFICE [facility] 2021-12-31 2021-12-31 Telephone [address]114 925 73152 Univers 00:00:00 00:00:00 Tray HEALTH 350.1.13.10 it y of [place] 4.2.7.2.686 Emanuel as JOLLY?BLEA [phone] Oh dicroshan CHAIREZ 044 [facility] OFFICE [facility] 2021-12-30 2021-12-30 Patient Jessie [facility] 1.2.840.114 [id number] Univers 00:00:00 00:00:00 Outreach Genesis Shah [facility] 350.1.13.10 ity of [place] 4.2.7.2.686 Emanuel as PROFESSIO [phone] Oh dicroshan BARNEY [address] [place] [address] OFFICE [facility] ONE 2021-12-28 2021-12-28 Outpatient R [facility] [id number] Univers 09:30:00 10:07:08 [facility] 2021-12-28 2021-12-28 Outpatient R [facility] [id number] Univers 09:30:00 10:07:08 [facility] 2021-12-28 2021-12-28 Office [facility] 1.2.087.611 [id number] Univers 09:30:00 10:07:08 Visit Cecile GREGORIO 350.1.13.10 i ty of [place] 4.2.7.2.[place] [phone] Oh samir[address] 2021-12-24 2021-12-24 Outpatient R [facility] [id number] Univers 14:00:00 14:00:00 ity of [facility] 2021-12-24 2021-12-24 Patient Rik [facility] 1.2.840.114 [id number] Univers 00:00:00 00:00:00 [facility] 350.1.13.10 ity of [facility] 4.2.7.2.686 Emanuel as JOLLY?BLEA [phone] Oh gabi CHAIREZ [address] [place] [address] OFFICE [facility] 2021-12-22 2021-12-22 Telephone [facility] 1.2.840.114 [id number] Univers 00:00:00 00:00:00 Cecile GREGORIO 350.1.13.10 i ty of [place] 4.2.7.2.686 [place] [phone] Oh dical NAL [address] [place] [address] 2021-12-16 2021-12-16 Clinton [facility]PRES[facility] 1.2.840.114 [id number] [id number] Univers 00:00:00 00:00:00 [facility] 350.1.13.10 it y of [place] 4.2.7.2.686 Emanuel as JOLLY?BLEA [phone] Oh gabi CHAIREZ 044 [facility] 2021-12-11 2021-12-11 Surgery [facility] 1.2.634.309 [id number] 9758 Univers 10:33:00 11:46:00 Cecile BYERSCHRISTELLE 350.1.13.10 i ty of [facility] 4.2.7.2.686 [place] [phone] [address] 2021-12-11 2021-12-11 Surgery [facility] 1.2.235.888 [id number] 9758 Univers 10:33:00 11:46:00 Cecile GREGORIO 350.1.13.10 i ty of [facility] 4.2.7.2.686 [place] [phone] [address] 2021-12-11 2021-12-11 Surgery [facility] 1.2.653.452 [id number] 9758 Univers 10:33:00 11:46:00 Cecile JG 350.1.13.10 i ty of [place] 4.2.7.2.686 [place] [phone] [address] 2021-12-11 2021-12-11 Outpatient R [facility] MARCUS [id number] Univers 08:40:00 11:25:00 CECILE flores [facility] 2021-12-11 2021-12-11 [facility] 1.2.840.114 [id number] Univers 08:40:00 11:25:00 Encounter Cecile GREGORIO 350.1.13.10 ity of [place] 4.2.7.2.686 [place] [id number] [address] 2021-12-11 2021-12-11 Outpatient R [facility] MARCUS [id number] Univers 08:40:00 11:25:00 CECILE jay [facility] 2021-12-11 2021-12-11 Outpatient R [facility] MARCUS 21699 [id number] Univers 08:40:00 11:25:00 CECILE flores [facility] 2021-12-11 2021-12-11 Orders Doctor CLAU 1.2.840.114 [id number] Univers 00:00:00 00:00:00 Only Unassigned, GRAYSON 350.1.13.[address] [facility] 4.2.7.2.686 Emanuel as [phone] [address] 2021-12-09 2021-12-[address] [facility] 1.2.840.114 [id number] Univers 00:00:00 00:00:00 Wondiful A HEALTH 350.1.13.10 ity of [place] 4.2.7.2.686 Emanuel as JOLLY?BLEA [phone] Oh gabi CHAIREZ 198 [facility] OFFICE [facility] 2021-12-08 2021-12-08 Outpatient R [facility] [id number] Univers 13:00:00 13:00:00 ity of [facility] 2021-12-08 2021-12-08 Telephone [facility] 1.2.840.114 [id number] Univers 00:00:00 00:00:00 Tray HEALTH 350.1.13.10 it y of [place] 4.2.7.2.686 Emanuel as JOLLY?BLEA [phone] Oh gabi CHAIREZ 044 [facility] OFFICE [facility] 2021-12-08 2021-12-08 Telephone [facility] 1.2.840.114 [id number] Univers 00:00:00 00:00:00 Tray HEALTH 350.1.13.10 it y of [place] 4.2.7.2.686 Emanuel as JOLLY?BLEA [id number] Oh gabi CHAIREZ 044 [facility] OFFICE [facility] 2021-12-03 2021-12-03 Outpatient [facility] [id number] Univers 13:30:00 13:30:00 ORPHEUS ity [facility] 2021-12-03 2021-12-03 Telephone [facility] 1.2.840.114 [id number] Univers 00:00:00 00:00:00 Cecile BYERSCHRISTELLE 350.1.13.10 i ty of [place] 4.2.7.2.686 [place] [phone] Oh gabi [facility] [address] [facility] 2021-12-03 2021-12-03 Telephone [facility] 1.2.840.114 [id number] Univers 00:00:00 00:00:00 Wondiful A HEALTH 350.1.13.10 ity of [place] 4.2.7.2.686 Emanuel as PROFESSIO [phone] [address] OFFICE [facility] ONE 2021-12-01 2021-12-01 Outpatient [facility] [id number] Univers 14:15:00 14:54:12 WONDIFUL ity o f [facility] 2021-12-01 2021-12-01 Office [facility] 1..840.114 [id number] Univers 14:15:00 14:54:12 Visit Wondiful A HEALTH 350.1.13.10 ity of [place] 4.2.7.2.686 Emanuel as JOLLY?BLEA [phone] [address] OFFICE [facility] 2021-12-01 2021-12-01 Outpatient R NISA [facility] [id number] Univers 14:15:00 14:54:12 WONDIFUL ity o f [facility] 2021-12-01 2021-12-01 Patient [facility] 1.2.840.114 [id number] Univers 00:00:00 00:00:00 Outreach Vik Fleming HEALTH 350.1.13.10 i ty of [place] 4.2.7.2.686 Emanuel as JOLLY?BLEA [phone] [address] OFFICE BUILDING 2021-12-01 2021-12-01 Patient Scot [facility] 1.2.840.114 [id number] Univers 00:00:00 00:00:00 Outreach Vik Fleming HEALTH 350.1.13.10 i ty of [place] 4.2.7.2.686 Emanuel as JOLLY?BLEA [phone] Oh gabi [address] MEDICAL OFFICE BUILDING 2021-11-18 2021-11-18 Outpatient R NISA [facility] [id number] Univers 10:00:00 10:44:34 WONDIFUL ity o f [facility] 2021-11-18 2021-11-18 Outpatient R NISA [facility] [id number] Univers 10:00:00 10:44:34 WONDIFUL ity o f [facility] 2021-11-18 2021-11-18 Outpatient R NISA [facility] [id number] Univers 10:00:00 10:00:00 WONDIFUL ity o f [facility] 2021-11-18 2021-11-18 Outpatient R NISA [facility] [id number] Univers 10:00:00 10:00:00 WONDIFUL ity o f [facility] 2021-11-18 2021-11-18 Outpatient R NISA [facility] [id number] Univers 10:00:00 10:00:00 WONDIFUL ity o f [facility] 2021-11-16 2021-11-16 Outpatient R MÁRQUEZ [facility] [id number] Univers 09:30:00 09:30:00 [facility] 2021-11-16 2021-11-16 Outpatient R WILLI [facility] [id number] Univers 09:30:00 09:30:00 [facility] 2021-11-16 2021-11-16 Outpatient R WILLI [facility] [id number] Univers 09:30:00 09:30:00 CECILE [facility] 2021-11-15 2021-11-15 Emergency X [facility] ERT [id number] Univers 09:06:00 12:49:00 DESTINY flores [facility] 2021-11-15 2021-11-15 Emergency [facility]PRES[facility] 1.2.852.576 [id number] Univers 09:06:00 12:49:00 Destiny GREGORIO 350.1.13.10 i ty of [place] 4.2.7.2.686 [place] [facility] [phone] [facility] [address] 2021-11-15 2021-11-15 Emergency X ONEILL, [facility] ERT [id number] Univers 09:06:00 12:49:00 DESTINY ity of [facility] 2021-11-10 2021-11-10 [facility] 1.2.840.114 [id number] Univers 00:00:00 00:00:00 Wondiful A HEALTH 350.1.13.10 ity of [place] 4.2.7.2.686 Emanuel as JOLLY?BLEA [phone] [address] OFFICE [facility] 2021-11-05 2021-11-05 Orders Doctor CLAU 1.2.840.114 [id number] Univers 00:00:00 00:00:00 Only Unassigned, GRAYSON 350.1.13.10 ity of [place] [facility] 4.2.7.2.686 Emanuel as [phone] [facility] [address] 2021-11-05 2021-11-[address] [facility] 1.2.840.114 [id number] Univers 00:00:00 00:00:00 Wondiful A HEALTH 350.1.13.10 ity of [place] 4.2.7.2.686 Emanuel as JOLLY?BLEA [phone] [address] OFFICE [facility] 2021-11-03 2021-11-03 [facility]phone [facility] 1.2.840.114 [id number] Univers 00:00:00 00:00:00 Wondiful A HEALTH 350.1.13.10 ity of [place] 4.2.7.2.686 Emanuel as JOLLY?BLEA [phone] [address] OFFICE [facility] 2021-11-03 2021-11-[address] [facility] 1.2.840.114 [id number] Univers 00:00:00 00:00:00 Wondiful A HEALTH 350.1.13.10 ity of [place] 4.2.7.2.686 Emanuel as JOLLY?BLEA [phone] [address] OFFICE [facility] 2021-10-27 2021-10-27 Case Sanjay Sánchez CINTHIA 1.2.840.114 [id number] Univers 00:00:00 00:00:00 Management H 350.1.13.10 ity of [facility] 4.2.7.2.686 Emanuel as [phone] [address] 2021-10-26 2021-10-26 Telephone Dawson Sánchezwanda VICENTE 1.2.840.114 [id number] Univers 00:00:00 00:00:00 H 350.1.13.10 it y of [facility] 4.2.7.2.686 Emanuel as [id number] [address] 2021-10-23 2021-10-23 Telephone Jaymie [facility] 1.2.984.838 [id number] Univers 00:00:00 00:00:00 Corry GREGORIO 350.1.13.10 ity of [place] 4.2.7.2.686 [place] [phone] Oh gabi [address] 2021-10-22 2021-10-22 Outpatient [facility] [id number] Univers 14:45:00 14:45:00 ISAC [facility] 2021-10-22 2021-10-22 Outpatient Brock [facility] [id number] Univers 14:45:00 14:45:00 ISAC ity [facility] 2021-10-22 2021-10-22 Outpatient Brock [facility] [id number] Univers 14:45:00 14:45:00 [facility] 2021-10-22 Outpatient Brock [facility] [id number] Univers 14:45:00 14:45:00 [facility] 2021-10-19 2021-10-19 Telephone Nisa [facility] 1.2.840.114 [id number] Univers 00:00:00 00:00:00 Wondiful A HEALTH 350.1.13.10 ity [facility] 4.2.7.2.686 Emanuel as JOLLY?BLEA [phone] Oh dical CONTRERAS [address] [place] [address] MEDICAL OFFICE BUILDING 2021-10-13 2021-10-13 Outpatient R [facility] [id number] Univers 10:30:00 10:41:12 CORRY flores [facility] 2021-10-13 2021-10-13 Office [facility] 1.2.840.114 [id number] Univers 10:30:00 10:41:12 Visit Corry GREGORIO 350.1.13.10 ity of [place] 4.2.7.2.686 [place] mit[place] ORTIZESSIO [phone] Me dical SAVITA [address] [facility] 2021-10-13 2021-10-13 Outpatient R [facility] [id number] Univers 10:30:00 10:41:12 CORRY flores [facility] 2021-09-29 2021-09-29 Outpatient [facility] [id number] Univers 16:14:01 23:59:00 CAPRICE flores [facility] 2021-09-29 2021-09-29 Outpatient R [facility] [id number] Univers 16:14:01 23:59:00 CAPRICEBRAYDEN flores [facility] 2021-09-29 2021-09-29 Hospital HenriquezPRES[facility] 1.2.840.114 [id number] Univers 16:14:01 23:59:00 Encounter Caprice Bernadette HEALTH 350.1.13.10 ity of [place] 4.2.7.2.686 Emanuel as JOLLY?BLEA [phone] Oh gabi CHAIREZ 809 [facility] 2021-09-29 2021-09-29 Outpatient [facility] [id number] Univers 16:14:01 23:59:00 CAPRICE flores [facility] 2021-09-29 2021-09-29 Office [facility]PRES[facility] 1.2.840.114 [id number] Univers 16:00:00 16:58:02 Visit Isac S HEALTH 350.1.13.10 it y of [facility] 4.2.7.2.686 Emanuel as JOLLY?BLEA [phone] Me dical KNEY 198 [facility] 2021-09-29 2021-09-29 Outpatient [facility] [id number] Univers 16:00:00 16:58:02 [facility] 2021-09-29 2021-09-29 Outpatient Brock MOMO [facility] [id number] Univers 16:00:00 16:58:02 ISAC itjay [facility] 2021-09-29 2021-09-29 Outpatient Brock BARR [facility] [id number] Univers 16:00:00 16:00:00 [facility] 2021-09-24 2021-09-24 Outpatient Brock BARR [facility] [id number] Univers 14:00:00 14:00:00 [facility] 2021-09-19 2021-09-19 Nurse Caprice Ozuna 1.2.840.114 [id number] Univers 00:00:00 00:00:00 Triage GRAYSON 350.1.13.10 it y of [facility] 4.2.7.2.686 Emanuel as [phone] [address] 2021-09-09 2021-09-09 Prep For [facility]PRES[facility] 1.2.840.114 [id number] Univers 00:00:00 00:00:00 Surgery Corry GREGORIO 350.1.13.[address] [facility] 4.2.7.2.[place] [phone] Oh dical [facility] [address] [facility] 2021-09-08 2021-09-08 Office MárquezPRESBYTER[facility] 1.2.878.570 [id number] Univers 14:30:00 16:16:36 Visit Cecile GREGORIO 350.1.13.10 i ty of [place] 4.2.7.2.[place] [phone] Oh dical NAL [address] [facility] 2021-09-08 2021-09-08 Outpatient Brock MÁRQUEZ [facility] [id number] Univers 14:30:00 16:16:36 CECILE flores [facility] 2021-09-08 2021-09-08 Outpatient Brock MÁRQUEZ [facility] [id number] Univers 14:30:00 16:16:36 CECILE flores [facility] 2021-09-08 2021-09-08 Outpatient R MÁRQUEZ, [facility] [id number] Univers 14:30:00 14:30:00 CECILE flores [facility] 2021-09-08 2021-09-08 Orders Doctor CLAU 1.2.840.114 [id number] Univers 00:00:00 00:00:00 Only Unassigned, GRAYSON 350.1.13.10 ity of [place] [facility] 4.2.7.2.686 Emanuel as [phone] [address] 2021-09-02 2021-09-02 Outpatient [facility] [id number] Univers 14:00:00 14:00:00 CAPRICE flores [facility] 2021-08-31 2021-08-31 Orders Doctor CLAU 1.2.840.114 [id number] Univers 00:00:00 00:00:00 Only Unassigned, GRAYSON 350.1.13.10 ity of [place] [facility] 4.2.7.2.686 Emanuel as [id number] [address] 2021-08-26 2021-08-26 Outpatient R NISA [facility] [id number] Univers 10:45:00 11:58:51 WONDIFUL ity o f [facility] 2021-08-26 2021-08-26 Outpatient R NISA [facility] [id number] Univers 10:45:00 11:58:51 WONDIFUL ity o f [facility] 2021-08-26 2021-08-26 Outpatient R NISA [facility] [id number] Univers 10:45:00 11:58:51 WONDIFUL ity o f [facility] 2021-08-26 2021-08-26 Outpatient R NISA [facility] [id number] Univers 10:45:00 11:58:51 WONDIFUL ity o [facility] 2021-08-26 2021-08-26 Office [facility] 1.2.840.114 [id number] Univers 10:34:47 11:58:51 Visit Wondiful A HEALTH 350.1.13.10 ity of [place] 4.2.7.2.686 Emanuel as JOLLY?BLEA [phone] Oh dicroshan CHAIREZ [address] MEDICAL OFFICE [facility] 2021-08-17 2021-08-17 Case [facility]PRES[facility] 1.2.840.114 [id number] Univers 00:00:00 00:00:00 Management Wondiful A HEALTH 350.1.13.10 ity [facility] 4.2.7.2.686 Emanuel as JOLLY?BLEA [id number] [facility] [address] MEDICAL OFFICE [facility] 2021-08-13 2021-08-13 Outpatient R NISA [facility] [id number] Univers 07:58:20 23:59:00 WONDIFUL ity o f [facility] 2021-08-13 2021-08-13 Hospital [facility] [id number] Univers 07:58:20 23:59:00 Encounter Wondiful A [place] [id number] [facility] [id number] [phone] [facility] [address] 2021-08-13 2021-08-13 [facility] [id number] Univers 07:58:20 23:59:00 WONDIFUL ity o f [facility] 2021-08-13 2021-08-13 Certified Low Vision Therapist Zachariah, Kevin [facility] [id number] Univers 07:57:57 08:12:57 Visit Bunny Paulamery A [place] [id number]. 10 [id number] [facility] [phone] [place] [facility] 2021-08-13 2021-08-13 Outpatient R NISA [facility] [id number] Univers 00:00:00 00:00:00 WONDIFUL ity o f [facility] 2021-08-04 2021-08-04 Outpatient Brock PAULA [facility] [id number] Univers 15:30:00 15:42:52 WONDIFUL ity o f [facility] 2021-08-04 2021-08-04 Outpatient Brock PAULA [facility] [id number] Univers 15:30:00 15:42:52 WONDIFUL ity o f [facility] 2021-08-04 2021-08-04 Outpatient R NISA [facility] [id number] Univers 15:30:00 15:42:52 WONDIFUL ity o f [facility] 2021-08-04 2021-08-04 Outpatient R NISA [facility] [id number] Univers 15:30:00 15:42:52 WONDIFUL ity o f [facility] 2021-08-04 2021-08-04 Outpatient R NISA [facility] [id number] Univers 15:30:00 15:42:52 WONDIFUL ity o [facility] 2021-08-04 2021-08-04 [facility] [id number] Univers 14:30:05 15:42:52 [id number] [id number] Emanuel as JOLLY?BLEA [phone] [address] MEDICAL OFFICE BUILDING 2021-08-04 2021-08-04 Outpatient Brock PAULA [facility] [id number] Univers 15:30:00 15:30:00 WONDIFUL ity o [facility] 2021-08-03 2021-08-03 Pre Visit CLAU [place] [id number] Univers 00:00:00 00:00:00 Outreach Jorge GALICIA [id number] i ty [facility] [id number] Emanuel as [phone] [place] [id number] Branch 2021-07-15 2021-07-15 Outpatient R AIMEE [facility] [id number] Univers 14:20:00 14:20:00 SHORTY ity o [facility] 2021-07-15 2021-07-15 Outpatient Brock YU [facility] [id number] Univers 14:20:00 14:20:00 SHORTY ity o [facility] 2021-07-15 2021-07-15 Outpatient Brock AIMEE [facility] [id number] Univers 14:20:00 14:20:00 SHORTY alany o f [facility] 2021-07-15 2021-07-15 Outpatient Brock YU [facility] [id number] Univers 14:20:00 14:20:00 SHORTY alany o f [facility] 2021-07-14 2021-07-14 Reffranchesca Paula [facility] [id number] [id number] Univers 00:00:00 00:00:00 Wondiful A Health [id number] ity of [place] [id number] Emanuel as Professio [phone] [address] Office [facility] One 2021-07-10 2021-07-10 [place] [id number] Devoted 05:13:00 05:13:00 1015 Medica l Group 2021-07-02 2021-07-02 [facility]anchesca [facility] [id number] [id number] [facility] Univers 00:00:00 00:00:00 Wondiful A Health [id number] ity of [place] [id number] Emanuel as Professio [phone] [address] One 2021-06-15 2021-06-15 Orders Doctor CLAU 1.2.840.114 [id number] Univers 00:00:00 00:00:00 Only Unassigned, GRAYSON [id number] ity of [facility] [id number] Emanuel as [phone] [facility] 009 Branch 2021-06-08 2021-06-08 Patient RadhaNicolasberta 1.2.840.114 [id number] Univers 00:00:00 00:00:00 Outreach Emily Siny 350.1.13.10 ity of [id number] [phone] [facility] 086 Branch 2021-06-08 2021-06-08 RefVik Hall [facility] 1.2.840.114 [id number] Univers 00:00:00 00:00:00 Health [id number] it y of [place] [id number] [facility] [phone] [facility] 092 Branch Office Building 2021-05-25 2021-05-25 Emergency X DREVER, [facility] ERT [id number] Univers 18:22:00 20:23:00 LAUREEN ity of [facility] 2021-05-25 2021-05-25 Emergency X DREVER, [facility] ERT [id number] Univers 18:22:00 20:23:00 LAUREEN ity [facility] 2021-05-25 2021-05-25 Emergency X DREVER, [facility] ERT [id number] Univers 18:22:00 20:23:00 LAUREEN ity [facility] 2021-05-25 2021-05-25 Emergency X DREVER, [facility] ERT [id number] Univers 18:22:00 20:23:00 LAUREEN ity [facility] 2021-05-25 2021-05-25 Emergency X DREVER, [facility] ERT [id number] Univers 18:22:00 20:23:00 LAUREEN ity [facility] 2021-05-25 2021-05-25 Emergency Drever, [facility] [id number] Univers 18:22:00 20:23:00 Laureen [place] 350.1.13.10 ity of [place] [id number] [facility] [phone] [place] [id number] Branch 2021-05-21 2021-05-21 Outpatient R LAILA ORELLANA [facility] [id number] Univers 09:30:00 09:30:00 LAILA ORELLANA i ty [facility] 2021-05-19 2021-05-19 Susan [facility] 1.2.840.114 [id number] Univers 00:00:00 00:00:00 Wondiful A Health [id number] ity of [place] [id number] Emanuel as Professio [phone] Oh dical nal 044 Branch Office Building One 2021-05-14 2021-05-14 Outpatient R SANJAY SÁNCHEZ [facility] [id number] Univers 09:00:00 09:00:00 ity of [facility] 2021-05-09 2021-05-09 Outpatient DMG [facility] [id number] Devoted 11:00:00 11:00:00 0814 Medica l Group 2021-05-08 2021-05-08 Outpatient R FLORENCE [facility] [id number] Univers 07:37:21 23:59:00 CAPRICE ity [facility] 2021-05-08 2021-05-08 Outpatient R FLORENCE [facility] [id number] Univers 07:37:21 23:59:00 CAPRICE itjay [facility] 2021-05-08 2021-05-08 Outpatient R FLORENCE [facility] [id number] Univers 07:37:21 23:59:00 CAPRICE mark [facility] 2021-05-08 2021-05-08 Outpatient Brock HENRIQUEZ [facility] [id number] Univers 07:37:21 23:59:00 ALBANY itjay [facility] 2021-05-08 2021-05-08 Outpatient Brock BARR [facility] [id number] Univers 08:15:00 08:15:00 ISAC itjay [facility] 2021-05-07 2021-05-07 [facility] [id number] Devoted 12:00:00 12:00:00 0812 Medica l Group 2021-04-27 2021-04-27 Susan [facility] 1.2.840.114 [id number] Univers 00:00:00 00:00:00 [facility] [id number] it y of [place] [id number] Emanuel as PROFESSIO [phone] Oh dical [place] [id number] Branch OFFICE BUILDING ONE 2021-04-21 2021-04-21 Outpatient Brock PAULA [facility] [id number] Univers 15:45:00 15:45:00 WONDIFUL ity o f [facility] 2021-04-07 2021-04-07 Outpatient Brock PRASAD [facility] [id number] Univers 09:20:00 09:20:00 RD phillipsjay [facility] 2021-04-02 2021-04-02 Outpatient R MOMO, [facility] [id number] Univers 08:45:00 08:45:00 ISAC itjay [facility] 2021-04-01 2021-04-01 Emergency X NINO, [facility] ERT [id number] Univers 13:00:00 15:36:00 DESTINY flores [facility] 2021-04-01 2021-04-01 Emergency X NINO, [facility] ERT [id number] Univers 13:00:00 15:36:00 DESTINY flores [facility] 2021-04-01 2021-04-01 Emergency X NINO, [facility] ERT [id number] Univers 13:00:00 15:36:00 DESTINY flores [facility] 2021-04-01 2021-04-01 Outpatient R [facility] [id number] Univers 08:45:00 [facility]-03-28 2021-03-28 Outpatient R BELLA, [facility] [id number] Univers 09:40:00 09:40:00 CHELA phillipsjay o f [facility] 2021-03-27 2021-03-27 Outpatient R WIL, [facility] [id number] Univers 09:30:00 09:30:00 MATEO jay [facility] 2021-03-26 2021-03-26 Outpatient R MOMO, [facility] [id number] Univers 15:15:00 15:15:00 ISAC [facility] 2021-03-25 2021-03-25 Outpatient R JAYMIE, [facility] [id number] Univers 08:30:00 08:30:00 [facility] 2021-03-[facility] 2021-03-23 Outpatient R STEFFANIE, [facility] [id number] Univers 08:00:00 08:00:00 EMERY phillipsy o f [facility] 2021-03-20 2021-03-20 Emergency X Tatiana MITCHELL [facility] ERT [id number] Univers 19:09:00 19:47:00 ity [facility] 2021-03-20 2021-03-20 Emergency X Tatiana MITCHELL [facility] ERT [id number] Univers 19:09:00 19:47:00 ity [facility] 2021-03-20 2021-03-20 Emergency X STEPHEN, Tatiana [facility] ERT [id number] Univers 19:09:00 19:47:00 ity [facility] 2021-03-18 2021-03-18 Outpatient Brock HENRIQUEZ, [facility] NUT [id number] Univers 00:00:00 00:00:00 [facility] 2021-03-12 2021-03-12 [facility] [id number] Univers 08:30:00 08:30:00 [facility] 2021-03-11 2021-03-11 [facility] [id number] Univers 16:15:00 16:15:00 [facility] 2021-03-10 2021-03-10 [facility] 1.2.840.114 [id number] Univers 00:00:00 00:00:00 [facility] 350.1.13.10 it y of [place] [id number] [facility] [phone] [facility] 092 Branch OFFICE BUILDING 2021-02-25 2021-02-25 [facility]patient [facility] [id number] Univers 14:30:00 14:30:00 [facility] 2021-02-25 2021-02-25 Telephone [facility] [id number] 00:00:00 00:00:00 Williamky Kaley [place] 350.1.13.10 [place] [id number] Professio [phone] nal 059 Building 2021-02-24 2021-02-24 Outpatient Brock PAULA [facility] [id number] Univers 11:00:00 11:00:00 WONDIFUL ity o f [facility] 2021-02-19 2021-02-19 [facility] [id number] Univers 10:03:49 23:59:00 CAPRICE [facility] 2021-02-19 2021-02-19 [facility]patient [facility] [id number] Univers 00:00:00 00:00:00 [facility] 2021-02-17 2021-02-17 Outpatient R [facility] [id number] Univers 17:40:00 17:40:00 [facility] 2021-02-17 2021-02-17 Outpatient R JONA [facility] [id number] Univers 17:40:00 17:17:33 [facility] 2021-02-17 2021-02-17 Outpatient R JONA [facility] [id number] Univers 17:40:00 17:17:33 [facility] 2021-02-17 2021-02-17 Outpatient R JONA [facility] [id number] Univers 17:40:00 17:17:33 ROGE [facility] 2021-02-10 2021-02-10 Outpatient R ATUL [facility] [id number] Univers 09:00:00 09:00:00 [facility] 2021-02-09 2021-02-09 Outpatient R MOMO [facility] [id number] Univers 14:45:00 14:45:00 [facility] 2021-02-09 2021-02-09 Outpatient R MOMO [facility] [id number] Univers 14:45:00 14:45:00 [facility] 2021-02-04 2021-02-04 Outpatient R MARCELINA VALERA [facility] [id number] Univers 10:30:00 10:30:00 MARCELINA VALERA [facility] 2021-02-03 2021-02-03 Outpatient R NISA [facility] [id number] Univers 16:30:00 16:30:00 WONDIFUL ity o f [facility] 2021-01-27 2021-01-27 Outpatient R NAV ANTONIO [facility] [id number] Univers 15:00:00 15:00:00 [facility] 2021-01-21 2021-01-21 Outpatient R ATUL [facility] [id number] Univers 11:00:00 11:00:00 SENDIL ity [facility] 2021-01-20 2021-01-20 Outpatient R SANJAY SÁNCHEZ [facility] [id number] Univers 11:00:00 11:00:00 ity [facility] 2021-01-14 2021-01-14 Outpatient R RIK, [facility] [id number] Univers 10:45:00 10:45:00 TRAY ity [facility] 2021-01-08 2021-01-08 Outpatient R MOMO, [facility] [id number] Univers 08:45:00 08:45:00 ISAC ity [facility] 2021-01-06 2021-01-06 Outpatient R AIMEE, [facility] [id number] Univers 11:00:00 11:00:00 SHORTY ity o f [facility] 2021-01-01 2021-01-01 Outpatient R NISA, [facility] [id number] Univers 15:00:00 15:00:00 WONDIFUL ity o f [facility] 2021-01-01 2021-01-01 Outpatient R NISA, [facility] [id number] Univers 15:00:00 15:00:00 WONDIFUL ity o f [facility] 2021-01-01 2021-01-01 Outpatient R NISA, [facility] [id number] Univers 15:00:00 15:00:00 WONDIFUL ity o f [facility] 2021-01-01 2021-01-01 Outpatient R NISA, [facility] [id number] Univers 15:00:00 15:00:00 WONDIFUL ity o f [facility] 2020-12-13 2020-12-13 Outpatient [facility] [id number] Univers 08:25:00 08:25:00 ity [facility] 2020-12-13 2020-12-13 Outpatient Brock LINDO [facility] [id number] Univers 08:25:00 08:25:00 TAMMY ity [facility] 2020-12-13 2020-12-13 Outpatient Brock LINDO [facility] [id number] Univers 08:25:00 08:25:00 TAMMY ity [facility] 2020-12-13 2020-12-13 Outpatient R BELGICA, [facility] [id number] Univers 08:25:00 08:25:00 TAMMY ity [facility] 2020-12-02 2020-12-02 Outpatient R JAKE, [facility] [id number] Univers 09:00:00 09:00:00 LIANA ity [facility] 2020-12-02 2020-12-02 Outpatient R JAKE, [facility] [id number] Univers 09:00:00 09:00:00 LIANA ity [facility] 2020-12-02 2020-12-02 Outpatient R JAKE, [facility] [id number] Univers 09:00:00 09:00:00 LIANA ity [facility] 2020-12-02 2020-12-02 Outpatient R JAKE, [facility] [id number] Univers 09:00:00 09:00:00 LIANA ity [facility] 2020-11-22 2020-11-22 Outpatient R BELGICA, [facility] [id number] Univers 09:40:00 09:40:00 TAMMY ity [facility] 2020-11-22 2020-11-22 Outpatient R BELGICA, [facility] [id number] Univers 09:40:00 09:40:00 TAMMY ity [facility] 2020-11-22 2020-11-22 Outpatient R BELGICA [facility] [id number] Univers 09:40:00 09:40:00 TAMMY ity [facility] 2020-11-21 2020-11-21 Outpatient R DONOVAN [facility] [id number] Univers 14:00:00 14:00:00 LAKISHA ity [facility] 2020-11-20 2020-11-20 Outpatient R LAILA ORELLANA [facility] [id number] Univers 15:00:00 15:00:00 LAILA ORELLANA i [facility] 2020-11-09 2020-11-09 Outpatient R ELISHA [facility] [id number] Univers 08:20:00 08:20:00 RD flores [facility] 2020-11-09 2020-11-09 Outpatient R ELISHA [facility] [id number] Univers 08:20:00 08:20:00 RD flores [facility] 2020-11-09 2020-11-09 Outpatient R ELISHA [facility] [id number] Univers 08:20:00 08:20:00 RD jay [facility] 2020-11-07 2020-11-07 Outpatient R VIK OLIVEIRA [facility] [id number] Univers 11:30:00 11:30:00 jay [facility] 2020-11-06 2020-11-06 Outpatient R NISA, [facility] [id number] Univers 08:15:00 08:15:00 WONDIFUL ity o f [facility] 2020-10-16 2020-10-16 Outpatient R ELISHA [facility] [id number] Univers 18:00:00 18:00:00 RD jay [facility] 2020-10-02 2020-10-02 Outpatient R MOMO, [facility] [id number] Univers 10:15:00 10:15:00 ISAC [facility] 2020-09-22 2020-09-22 Outpatient R STEFFANIE, [facility] [id number] Univers 08:00:00 08:00:00 EMERY ity o f [facility] 2020-09-15 2020-09-15 Outpatient R NISA, [facility] [id number] Univers 00:00:00 00:00:00 WONDIFUL ity o f [facility] 2020-09-15 2020-09-15 Outpatient R NISA, [facility] [id number] Univers 00:00:00 00:00:00 WONDIFUL ity o f [facility] 2020-09-14 2020-09-14 Outpatient R JONA [facility] [id number] Univers 08:40:00 08:40:00 ROGE [facility] 2020 2020 Outpatient R NISA, [facility] [id number] Univers 00:00:00 00:00:00 WONDIFUL ity o f [facility] 2020-09-10 2020-09-10 Outpatient R DONITA [facility] [id number] Univers 08:00:00 08:00:00 SHANTI flores [facility] 2020-09-08 2020-09-08 Outpatient R SELF, [facility] [id number] Univers 08:00:00 08:00:00 EMERY ity o f [facility] 2020-09-04 2020-09-04 Outpatient R NISA, [facility] [id number] Univers 16:00:00 16:00:00 WONDIFUL ity o f [facility] 2020-08-25 2020-08-25 Outpatient R NISA, [facility] [id number] Univers 11:00:00 11:13:03 WONDIFUL ity o f [facility] 2020-08-25 2020-08-25 Outpatient R NISA, [facility] [id number] Univers 10:30:00 10:30:00 WONDIFUL ity o f [facility] 2020-08-06 2020-08-06 Outpatient R PATRICIO, [facility] [id number] Univers 10:20:00 10:20:00 BALJIT flores [facility] 2020-08-06 2020-08-06 Outpatient R PATRICIO [facility] [id number] Univers 09:00:00 09:00:00 BALJIT flores [facility] 2020-08-01 2020-08-01 Outpatient R HINTON, [facility] [id number] Univers 10:00:00 10:00:00 MATEO mark [facility] 2020-07-18 2020-07-18 Outpatient R LAILA ORELLANA [facility] [id number] Univers 11:00:00 11:00:00 LAILA ORELLANA i [facility] 2020-07-17 2020-07-17 Outpatient R VIK OLIVEIRA [facility] [id number] Univers 12:00:00 12:00:00 ity [facility] 2020-07-14 2020-07-14 Outpatient R NISA, [facility] [id number] Univers 10:45:00 10:45:00 WONDIFUL ity o f [facility] 2020-07-07 2020-07-07 Outpatient R MAKSIM, [facility] [id number] Univers 08:30:00 08:30:00 [facility] 2020-06-[facility] 2020-06-27 Outpatient R NISA, [facility] [id number] Univers 15:15:00 15:15:00 WONDIFUL ity o f [facility] 2020-06-12 2020-06-12 Outpatient R MAKSIM, [facility] [id number] Univers 15:45:00 15:45:00 AUBRIE [facility] 2020-06-05 2020-06-05 Outpatient R MOMO, [facility] [id number] Univers 10:30:00 10:30:00 [facility] 2020-06-03 2020-06-03 Outpatient R ATUL, [facility] [id number] Univers 09:00:00 09:00:00 SENDIL [facility] 2020-05-16 2020-05-16 Outpatient R OLIVEIRAVIK [facility] [id number] Univers 16:30:00 16:30:00 ity [facility] 2020-05-09 2020-05-09 Outpatient R [facility] [id number] Univers 10:20:00 10:20:00 ity [facility] 2020-04-21 2020-04-21 Outpatient R ARGENIS, [facility] [id number] Univers 11:40:00 11:40:00 DORITA [facility] 2020-04-18 2020-04-18 Outpatient R ATUL, [facility] [id number] Univers 09:30:00 09:30:00 SENDIL [facility] 2020-04-15 2020-04-15 Outpatient R [facility] [id number] Univers 10:20:00 10:20:00 ity [facility] 2020-04-04 2020-04-04 Outpatient R [facility] [id number] Univers 10:00:00 10:00:00 ity [facility] 2020-04-01 2020-04-01 Outpatient R [facility] [id number] Univers 08:00:00 08:00:00 ity [facility] 2020-03-20 2020-03-20 Outpatient R ROMARIO, [facility] [id number] Univers 10:00:00 10:00:00 FABRICIO [facility] 2020-03-10 2020-03-10 Outpatient R MIKAYLA [facility] [id number] Univers 08:45:00 08:45:00 CL [facility] 2020-03-03 2020-03-03 Outpatient R MAKSIM, [facility] [id number] Univers 08:00:00 08:00:00 AUBRIE [facility] 2020-01-22 2020-01-22 Outpatient R MOMO, [facility] [id number] Univers 15:45:00 15:45:[facility] 2020-01-22 Outpatient R MOMO [facility] [id number] Univers 10:45:00 10:45:00 [facility] 2020-[facility]-18 2020-01-18 Outpatient R SANJAY SÁNCHEZ [facility] [id number] Univers 11:30:00 11:30:00 [facility] 2020-01-11 2020-01-11 Outpatient R LAILA ORELLANA [facility] [id number] Univers 11:00:00 11:00:00 LAILA ORELLANA i [facility] 2020-01-10 2020-01-10 Outpatient R NISA [facility] [id number] Univers 10:00:00 10:00:00 WONDIFUL ity o f [facility] 2020-01-04 2020-01-04 Outpatient R ROXANNE VIK [facility] [id number] Univers 11:30:00 11:30:00 [facility] 2020-01-01 2020-01-01 Outpatient R [facility] [id number] Univers 08:00:00 08:00:00 ity [facility] 2019-12-21 2019-12-21 Outpatient R NISA [facility] [id number] Univers 09:30:00 09:30:00 WONDIFUL ity o f [facility] 2019-12-06 2019-12-06 Outpatient R ROMARIO, [facility] [id number] Univers 11:00:00 11:00:00 FABRICIO [facility] 2019-11-30 2019-11-30 Outpatient R MOMO [facility] [id number] Univers 10:30:00 10:30:00 [facility] 2019-11-29 2019-11-29 Outpatient R MOMO [facility] [id number] Univers 08:15:00 08:15:00 [facility] 2019-11-23 2019-11-23 Outpatient R [facility] [id number] Univers 08:00:00 08:00:00 [facility] Results Test Description Test Time Test Comments Results Result Comments Source POCT GLUCOSE (AUTOMATED) 2022-03-02 13:11:54 Test Item Value Reference Range Interpretation Comme nts POCT GLU (test code = 0071395249) 137 mg/dL 70-110 H Lab Interpretation (test code = 43697-3) Abnormal [facility] GLUCOSE (AUTOMATED)2022-03-02 13:11:54 Test Item Value Reference Range Interpretation Comments POCT GLU (test code = 0774933575) 137 mg/dL 70-110 H Lab Interpretation (test code = Abnormal 37266-4) [facility] [id number] 12:59:00 Test Item Value Reference Range Interpretation Comments POCT Glu (age>30days) (test code = 137 mg/dL 70-110 A 3342) Lab Interpretation (test code = Abnormal 21929-4) [facility] [id number] 12:59:00 Test Item Value Reference Range Interpretation Comments POCT Glu (age>30days) (test code = 137 mg/dL 70-110 A 3342) Lab Interpretation (test code = Abnormal 28322-6) [facility] [id number] 12:48:00 Test Item Value Reference Range Interpretation Comments POCT PREG (test code = 1605) Negative On board controls acceptable with Yes C Line (test code = 3574) POCT PREG LOT # (test code = 3575) [id number] POCT PREG TEST DATE (test 2023-06-25 code = 3576) [facility] [id number] 12:48:00 Test Item Value Reference Range Interpretation Comments POCT PREG (test code = 1605) Negative On board controls acceptable with Yes C Line (test code = 3574) POCT PREG LOT # (test code = 3575) [id number] POCT PREG TEST DATE (test 2023-06-25 code = 3576) [facility]
--- NOTE | 2022-08-12 16:32 | RAD REPORT ---
EXAM DESCRIPTION: RAD - Foot Left 3 View - 08/12/2022 4:21 pm CLINICAL HISTORY: PAIN COMPARISON: No comparisons FINDINGS/IMPRESSION: No acute fracture. No malalignment. No significant focal degenerative changes.
--- NOTE | 2022-08-12 16:33 | RAD REPORT ---
EXAM DESCRIPTION: RAD - Tib Fib Left - 08/12/2022 4:21 pm CLINICAL HISTORY: PAIN COMPARISON: No comparisons FINDINGS/IMPRESSION: No acute fracture. No malalignment. No significant focal degenerative changes.
--- NOTE | 2022-08-12 17:07 | ER ---
Nurse's Notes [facility] Name: Linda Rahman Age: 46 yrs Sex: Female : 1975 Arrival Date: 08/12/2022 Time: 15:37 Bed 2 Private MD: Diagnosis: Fall on same level, unspecified;Contusion of left knee;Pain in left ankle and joints of left foot;Pain in left lower leg Presentation: 08/12 15:37 Chief complaint: EMS states: fell onto left knee last night. Pt states "I tripped on a aa5 rug". Abrasion noted to left knee. Pt c/o pain to left foot and left knee. 15:37 Acuity: HOLLEY 4 aa5 15:37 Method Of Arrival: EMS: [facility] aa5 15:37 Coronavirus screen: At this time, the client does not indicate any symptoms associated aa5 with coronavirus-19. Ebola Screen: Patient denies travel to an Ebola-affected area in the 21 days before illness onset. Initial Sepsis Screen: Does the patient meet any 2 criteria? No. Patient's initial sepsis screen is negative. Does the patient have a suspected source of infection? No. Patient's initial sepsis screen is negative. Risk Assessment: Do you want to hurt yourself or someone else? Patient reports no desire to harm self or others. Onset of symptoms was August 11, 2022. Historical: - Allergies: 15:41 Amoxicillin; aa5 15:41 Benadryl; aa5 15:41 Codeine; aa5 15:41 Demerol; aa5 15:41 Geodon; aa5 15:41 Meclizine; aa5 15:41 Tessalon Perles; aa5 - PMHx: 15:41 Anemia; Anxiety; Asthma; diabetes mellitus; Hypertensive disorder; Hypothyroidism; aa5 Migraine; - PSHx: 15:41 Cholecystectomy; Tubal ligation; aa5 Screenin:40 Abuse screen: Denies threats or abuse. Nutritional screening: No deficits noted. aa5 Tuberculosis screening: No symptoms or risk factors identified. Fall Risk Fall in past 12 months (25 points). Assessment: 15:37 General: Appears comfortable, Behavior is calm, cooperative. Pain: Complains of pain in aa5 left knee and left foot Pain currently is 6 out of 10 on a pain scale. Quality of pain is described as aching, Pain began 1 day ago. Is continuous. Neuro: Level of Consciousness is awake, alert, obeys commands, Oriented to person, place, time, situation. Cardiovascular: Heart tones S1 S2 present Rhythm is regular. Respiratory: Airway is patent Respiratory effort is even, unlabored, Respiratory pattern is regular, symmetrical. GI: No signs and/or symptoms were reported involving the gastrointestinal system. : No signs and/or symptoms were reported regarding the genitourinary system. EENT: No signs and/or symptoms were reported regarding the EENT system. Derm: Skin is pink, warm \\T\\ dry. Abrasion noted to left knee. Musculoskeletal: Reports pain in left knee and left foot. 16:30 Reassessment: Patient is alert, oriented x 3, equal unlabored respirations, skin aa5 warm/dry/pink. 17:48 Reassessment: Patient is alert, oriented x 3, equal unlabored respirations, skin aa5 warm/dry/pink. 18:10 Reassessment: Left knee cleaned with saline, dressed with Neosporin and non-adherent aa5 dressing. Applied JURGEN wrap to left knee per orders. Awaiting Aircast splint from materials (dye house worker to bring), pt notified of wait time. . 19:05 Reassessment: textile supervisor stated that ankle splint is out of stock at this time, aa5 provider and pt notified. JURGEN wrap applied to left ankle . Vital Signs: 15:37 BP 118 / 78; Pulse 103; Resp 16 S; Temp 98.7(O); Pulse Ox 97% on R/A; Weight 102.06 kg aa5 (M); Height 5 ft. 2 in. (157.48 cm) (R); Pain 6/10; 17:30 BP 120 / 84; Pulse 92; Resp 18 S; Pulse Ox 98% on R/A; aa5 15:37 Body Mass Index 41.15 (102.06 kg, 157.48 cm) aa5 ED Course: 15:37 Patient arrived in ED. am2 15:37 Arm band placed on. aa5 15:37 Patient has correct armband on for positive identification. Placed in gown. Bed in low aa5 position. Call light in reach. Side rails up X2. 15:39 Young Burgos PA is PHCP. cp 15:39 Young Hernandez MD is Attending Physician. cp 15:40 Nyasia Almanza RN is Primary Nurse. aa5 15:44 Triage completed. aa5 16:23 XRAY Tib Fib LEFT In Process Unspecified. EDMS 16:23 XRAY Foot LEFT 3 View In Process Unspecified. EDMS 18:31 No provider procedures requiring assistance completed. Patient did not have IV access aa5 during this emergency room visit. 19:08 Primary Nurse role handed off by Nyasia Almanza, RN mw2 Administered Medications: 17:48 Drug: Hydrocodone-Acetaminophen (7.5 mg-325 mg) 1 tabs Route: PO; aa5 18:30 Follow up: Response: No adverse reaction aa5 17:49 Drug: Ibuprofen 800 mg Route: PO; aa5 18:30 Follow up: Response: No adverse reaction aa5 Medication: 18:30 VIS not applicable for this client. aa5 Outcome: 17:06 Discharge ordered by MD. cp 19:05 Patient left the ED. aa5 19:05 Discharged to home via wheelchair, with crutches, with family. aa5 19:05 Condition: stable 19:05 Discharge instructions given to patient, Instructed on discharge instructions, follow up and referral plans. medication usage, Demonstrated understanding of instructions, follow-up care, medications, Prescriptions given X 1. Signatures: Dispatcher [employer] EDOK Nyasia Almanza RN RN aa5 Young Burgos PA PA Adele Atkinson am2 Orion Alvarez mw2 Corrections: (The following items were deleted from the chart) 15:42 15:41 PSHx: Ligation of fallopian tube; aa5 aa5 19:22 19:14 Patient left the ED. aa5 aa5
--- NOTE | 2022-08-12 17:07 | EDPHYS ---
Physician Documentation [facility] Name: Linda Rahman Age: 46 yrs Sex: Female : 1975 Arrival Date: 08/12/2022 Time: 15:37 Bed 2 Private MD: ALEXA Physician Young Hernandez HPI: 08/12 15:45 This 46 yrs old Female presents to ER via EMS with complaints of Foot Pain, cp Knee Pain. 15:45 The patient presents with an abrasion, an injury, pain, that is acute, swelling, cp tenderness. The complaints affect the left knee. Onset: The symptoms/episode began/occurred yesterday. Associated signs and symptoms: Pertinent positives: tenderness and pain, of the left ankle. Treatment prior to arrival includes: no previous treatment. 15:45 Context: The problem was sustained at home, resulted from trip and fall, the patient cp can fully bear weight, the patient is able to ambulate, with moderate difficulty. Historical: - Allergies: 15:41 Amoxicillin; aa5 15:41 Benadryl; aa5 15:41 Codeine; aa5 15:41 Demerol; aa5 15:41 Geodon; aa5 15:41 Meclizine; aa5 15:41 Tessalon Perles; aa5 - PMHx: 15:41 Anemia; Anxiety; Asthma; diabetes mellitus; Hypertensive disorder; Hypothyroidism; aa5 Migraine; - PSHx: 15:41 Cholecystectomy; Tubal ligation; aa5 ROS: 16:00 Constitutional: Negative for body aches, chills, fever, poor PO intake. cp 16:00 Eyes: Negative for injury, pain, redness, and discharge. cp 16:00 Neck: Negative for pain with movement, pain at rest, stiffness. 16:00 Respiratory: Negative for cough, shortness of breath, wheezing. 16:00 Abdomen/GI: Negative for abdominal pain, nausea, vomiting, and diarrhea. 16:00 Back: Negative for pain at rest, pain with movement. 16:00 MS/extremity: Positive for pain, swelling, tenderness, of the left knee and left ankle, Negative for deformity, paresthesias. 16:00 Neuro: Negative for altered mental status, dizziness, headache, loss of consciousness, syncope, weakness. 16:00 All other systems are negative. Exam: 16:05 Constitutional: The patient appears in no acute distress, alert, awake, non-toxic, well cp developed, well nourished, obese. 16:05 Head/Face: Normocephalic, atraumatic. cp 16:05 Neck: C-spine: vertebral tenderness, is not appreciated, crepitus, is not appreciated, ROM/movement: is normal, is supple, without pain, no range of motions limitations. 16:05 Chest/axilla: Inspection: normal, Palpation: is normal, no crepitus, no tenderness. 16:05 Cardiovascular: Rate: tachycardic, Rhythm: regular. 16:05 Respiratory: the patient does not display signs of respiratory distress, Respirations: normal, no use of accessory muscles, no retractions, labored breathing, is not present, Breath sounds: are clear throughout, no decreased breath sounds, no stridor, no wheezing. 16:05 Abdomen/GI: Inspection: abdomen appears normal, Palpation: abdomen is soft and non-tender, in all quadrants. 16:05 Back: pain, is absent, ROM is normal. 16:05 Musculoskeletal/extremity: Extremities: grossly normal except: noted in the left knee: abrasion, swelling, tenderness noted anterior knee, There is no evidence of decreased ROM, deformity, noted in the left ankle: swelling, tenderness, no evidence of decreased ROM, deformity, ROM: limited passive range of motion due to pain, in the left knee and left ankle, Pulses: noted to be 2+ in the left dorsalis pedis artery. Vital Signs: 15:37 BP 118 / 78; Pulse 103; Resp 16 S; Temp 98.7(O); Pulse Ox 97% on R/A; Weight 102.06 kg aa5 (M); Height 5 ft. 2 in. (157.48 cm) (R); Pain 6/10; 17:30 BP 120 / 84; Pulse 92; Resp 18 S; Pulse Ox 98% on R/A; aa5 15:37 Body Mass Index 41.15 (102.06 kg, 157.48 cm) aa5 MDM: 15:40 Patient medically screened. cp 17:05 Data reviewed: vital signs, nurses notes, radiologic studies, plain films. cp 17:05 Differential diagnosis: dislocation, open fracture, closed fracture, contusion. Test cp interpretation: by ED physician or midlevel provider: plain radiologic studies. Counseling: I had a detailed discussion with the patient and/or guardian regarding: the historical points, exam findings, and any diagnostic results supporting the discharge/admit diagnosis, radiology results, to return to the emergency department if symptoms worsen or persist or if there are any questions or concerns that arise at home. Response to treatment: the patient's symptoms have markedly improved after treatment, and as a result, I will discharge patient. 08/12 15:40 Order name: XRAY Tib Fib LEFT; Complete Time: 17:04 cp 08/12 17:04 Interpretation: Report reviewed. cp 08/12 15:40 Order name: XRAY Foot LEFT 3 View; Complete Time: 17:04 cp 08/12 17:05 Interpretation: Reviewed report. cp 08/12 16:53 Order name: Wound dressing; Complete Time: 17:49 cp 08/12 17:05 Order name: Rainer wrap-joint; Complete Time: 18:29 cp 08/12 17:05 Order name: Crutches; Complete Time: 18:29 cp Administered Medications: 17:48 Drug: Hydrocodone-Acetaminophen (7.5 mg-325 mg) 1 tabs Route: PO; aa5 18:30 Follow up: Response: No adverse reaction aa5 17:49 Drug: Ibuprofen 800 mg Route: PO; aa5 18:30 Follow up: Response: No adverse reaction aa5 Disposition Summary: 08/12/22 17:06 Discharge Ordered Location: Home cp Problem: new cp Symptoms: have improved cp Condition: Stable cp Diagnosis - Fall on same level, unspecified cp - Contusion of left knee cp - Pain in left ankle and joints of left foot cp - Pain in left lower leg cp Followup: cp - With: Private Physician - When: 2 - 3 days - Reason: Recheck today's complaints Discharge Instructions: - Discharge Summary Sheet cp - Abrasion cp - Elastic Bandage and RICE Therapy cp - Acute Knee Pain, Adult cp - Ankle Pain cp Forms: - Medication Reconciliation Form cp - Thank You Letter cp - Antibiotic Education cp - Prescription Opioid Use cp Prescriptions: - Naprosyn 500 mg Oral Tablet - take 1 tablet by ORAL route 2 times per day take with food; 20 tablet; Refills: cp 0, Product Selection Permitted Addendum: 08/15/2022 13:27 Co-signature as Attending Physician, Young Hernandez MD I agree with the assessment and c gan plan of care. Signatures: Dispatcher [employer] EDWI Young Hernandez MD MD cha Calderon, Audri, RN RN aa5 Young Burgos, PA PA cp Corrections: (The following items were deleted from the chart) 08/12 15:42 15:41 PSHx: Ligation of fallopian tube; aa5 aa5 16:22 15:40 Knee Left 3 View+RAD.RAD.BRZ ordered. EDWI EDWI 19:14 17:05 Splint - Ankle: Aircast ordered. cp aa5
[2022-08-12] MEDS ORDERED: HYDROCODONE/APAP 7.5/325 MG TAB ONE (17:47)
[2022-08-12] MEDS ORDERED: IBUPROFEN 400 MG TAB ONE (17:47)
[2022-08-12 19:28] VITALS: BP 118/78; TEMP 98.7; O2SAT 97
== END 2022-08-12 19:14 | disposition home or self-care (01) ==
LOC: ER 15:37
DX: S80.02XA Contusion of left knee, initial encounter (principal); M25.572 Pain in left ankle and joints of left foot; M79.662 Pain in left lower leg; W01.0XXA Fall on same level from slipping, tripping and stumbling without subsequent striking against object, initial encounter; Y93.9 Activity, unspecified; Y92.019 Unspecified place in single-family (private) house as the place of occurrence of the external cause; Z88.6 Allergy status to analgesic agent; Z88.1 Allergy status to other antibiotic agents; Z88.8 Allergy status to other drugs, medicaments and biological substances; I10 Essential (primary) hypertension; E11.9 Type 2 diabetes mellitus without complications; E03.9 Hypothyroidism, unspecified; D64.9 Anemia, unspecified; F41.9 Anxiety disorder, unspecified
CPT/HCPCS: 99284

== ENCOUNTER 2022-08-16 19:12 | Emergency (ER) | payer OTHER ==
--- OUTSIDE RECORDS SUMMARY | 2022-08-16 19:46 | XMS REPORT | Continuity of Care Document ---
:1975 Author Organization [facility] t Address [address] [place] [address] Care Team Providers Name Role Phone TRAY JOLLY Primary Care Physician Unavailable CECILE MÁRQUEZ Attending Clinician Unavailable GREG JACKSON Attending Clinician Unavailable MARIBEL TINSLEY Attending Clinician Unavailable ARNOLDO ELIZABETH Attending Clinician Unavailable TRAY JOLLY Attending Clinician Unavailable MATEO HINTON Attending Clinician Unavailable Tray Jolly MD Attending Clinician STELLA WORLEY Attending Clinician Unavailable STELLA WORLEY Attending Clinician Unavailable Doctor Unassigned, [place] Attending Clinician Unavailable Cecile Márquez MD Attending [...] Clinician Arnoldo Elizabeth MD Attending Clinician Jessie [facility], Genesis Shah Attending Clinician GABRIELLA SALAS Attending Clinician Unavailable ANDREA PAULA Attending Clinician Unavailable Scot [facility], Vik Fleming Attending Clinician Yumiko NI, Sanjay [...] Number Effective Date Expiration Date Mitzy mcneil [facility] DUAL [id number] 2021 COMP CHOICE PPO 00:00:00 DSNP [facility] STAR PLUS [id number] 2021 00:00:00 MEDICAID [facility] [id number] 2016 00:00:00 DEVOTED HEALTH DAY8 2021 (MEDICARE 00:00:00 REPLACEMENT HMO) [employer] [id number] 2020 BEHAVIORAL 00:00:00 SOLUTIONS Problems Condition Condition [...] Added automatic ally from request for surgery [id number] Chronic Chronic Disease Active Overview: Univ ers superficia superficia 4-05 Formattin ity of l l 00:00: g of this [place] gastritis gastritis 00 note Medi cipriano without without might be Branch bleeding bleeding different from the original. 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 Added automatic ally from request for surgery [id number] Indigestio Indigestio Disease Active 2020-09 Overview : Univers n n 2-15 Formattin ity of 00:00: g of this [place] 00 note Medical might be Branch different from the original. Added automatic ally from request for surgery [id number] Bloating Bloating Disease Active 2020-09 Overview: Un jerrod 2-15 Formattin ity of 00:00: g of this note Medical might be Branch different from the original. Added automatic ally from request for surgery [id number] Dental Dental Disease Active Univers caries caries [...] Disease Active Univers 7-10 ity of 00:00: [place] [facility] Twitching Twitching Disease Active Uni vers 7-10 ity of 00:00: [place] [facility] Asthma, Asthma, Disease Active Univers mild mild 5-23 ity of persistent persistent 00:00: [place] [facility] Fatty Fatty Disease Active Univers liver liver 3-24 ity of 00:00: [place] [facility] Hepatomega Hepatomega Disease Active U nivers ly ly 3-24 ity of 00:00: [place] [facility] Obesity Obesity Disease Active Univers (BMI (BMI 2-12 ity of 30-39.9) 30-39.9) 00:00: [place] [facility] Sinus Sinus Disease Active Univers tachycardi tachycardi 1-02 it y of a a 00:00: [place] [facility] Dyslipidem Dyslipidem Disease Active 2015-09 U nivers ia ia 1-22 ity of 00:00: [place] [facility] Vitamin Vitamin Disease Active 2015-09 Univers B12 B12 1-10 ity of deficiency deficiency 00:00: [place] [facility] 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 6-09 ity of 00:00: [place] [facility] Abnormal Abnormal Disease Active Unive rs uterine uterine 5-23 ity of bleeding bleeding 00:00: [place] [facility] Submucous Submucous Disease Active Uni vers leiomyoma leiomyoma 5-23 ity of of uterus of [place] 00:00[place] [facility] Encounter Encounter Disease Active Uni vers for blood for blood 2-16 ity of transfusio transfusio 00:00: [place] 00 Medical Branch History of History of Disease Active U nivers tubal tubal 2-05 ity of ligation ligation 00:00: [place] [facility] Recurrent Recurrent Disease Active Uni [...] U nivers neuropathy neuropathy it y of [facility] 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 ity of [facility] PCOS PCOS Disease Active Univers (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) [facility] Allergies, Adverse Reactions, Alerts Allergy Allergy [...] 9-04 ity of 00:00: [place] 00 Medical Mode Social History Social Habit Start Date Stop Date Quantity Comments Source Exposure to 2022-07-17 2022-07-27 Not sure [place] of SARS-CoV-2 (event) 00:00:00 07:31:00 [facility] Tobacco Comment 2022-06-17 2022-06-17 10 years ago Univers ity of 00:00:00 00:00:00 [facility] Cigarettes smoked 2022-06-17 2022-06-17 Univers ity of current (pack per 00:00:00 00:00:00 ) - Reported Branch Cigarette 2022-06-17 2022-06-17 University of pack-years 00:00:00 00:00:00 [facility] Tobacco use and 2022-06-17 2022-06-17 Smokeless Universit y of exposure 00:00:00 00:00:00 tobacco non-user [facility] Alcohol intake 2022-06-17 2022-06-17 0 /d University of 00:00:00 00:00:00 [facility] History of tobacco 1982-10-20 2007-10-20 Cigarette Smoker University of use 00:00:00 00:00:00 [facility] Sex [birth year] At [birth year] Univers y of 00:00:00 00:00:00 [facility] Smoking Status Start Date Stop Date Source Ex-smoker 2022-06-17 00:00:00 2022-06-17 00:00:00 [facility] Medications Ordered Filled Start Stop Current Ordering Indication Dosage Frequency Signature Comments Components Source Medication Medication Date Date Medication? Clinician (SIG) Name Name levothyroxi 2021-09 Yes [id number] 50ug Take 1 Univers ne 50 mcg 1-03 tablet by ity o f tablet 00:00: mouth [place] 00 every Medical morning. Branch levothyroxi 2021-09 Yes [id number] 50ug Take 1 Univers ne 50 mcg 1-03 tablet by ity o f tablet 00:00: mouth [place] 00 every Medical morning. Branch levothyroxi 2021-09 Yes [id number] 50ug Take 1 Univers ne 50 mcg [...] ity of (COLACE 08:06: [place] ORAL) 37 [facility] DOCUSATE 2021-09 Yes Take by Univer s SODIUM 1-01 mouth. ity of (COLACE 08:06: [place] ORAL) 37 [facility] DOCUSATE 2021-09 Yes Take by Univer s SODIUM 1-01 mouth. ity of (COLACE 08:06: [place] ORAL) 37 Medical Branch diltiazem 2021-09 Yes [id number] 120mg Take 1 U nivers 120 mg 24 1-01 capsule by ity of hr capsule 00:00: mouth in [place] as 00 the Medical morning Branch and 1 capsule in the evening. fluticasone 2021-09 Yes [id number] 2{puff} Inhale 2 Univers propionate 1-01 Puffs ity of (FLOVENT 00:00: every 12 [place] HFA) 110 00 (twelve) Medical mcg/actuati hours. Branch on inhaler Rinse mouth after each use. levothyroxi 2021-09 Yes [id number] 50ug Take 1 Univers ne 50 mcg 1-01 tablet by ity o f tablet 00:00: mouth [place] 00 every Medical morning. Branch metformin 2021-09 Yes [id number] 500mg Take 1 U nivers ER 500 mg 1-01 tablet by ity o f 24 hr 00:00: mouth [place] tablet 00 daily with Medical breakfast. Branch pantoprazol 2021-09 Yes [id number] 40mg Take 1 Univers e 40 mg EC 1-01 tablet by ity of tablet 00:00: mouth in [place] 00 the Medical morning. Branch pregabalin 2021-09 Yes [id number] 150mg Take 1 Univers 150 mg 1-01 capsule by ity of capsule 00:00: mouth in [place] 00 the Medical morning Branch and 1 capsule at noon and 1 capsule in the evening. rosuvastati 2021-09 Yes [id number] 10mg Take 1 Univers n 10 mg 1-01 tablet by ity of tablet 00:00: mouth at [place] 00 bedtime. Medical Branch SUMAtriptan 2021-09 Yes [id number] 50mg Take 1 Univers 50 mg 1-01 tablet by ity of tablet 00:00: mouth as [place] 00 needed for Medical Migraine. Branch diltiazem 2021-09 Yes [id number] 120mg Take 1 U nivers 120 mg 24 1-01 capsule by ity of hr capsule 00:00: mouth in [place] as 00 the Medical morning Branch and 1 capsule in the evening. fluticasone 2021-09 Yes [id number] 2{puff} Inhale 2 Univers propionate 1-01 Puffs ity of (FLOVENT 00:00: every 12 [place] HFA) 110 00 (twelve) Medical mcg/actuati hours. Branch on inhaler Rinse mouth after each use. levothyroxi 2021-09 Yes [id number] 50ug Take 1 Univers ne 50 mcg 1-01 tablet by ity o f tablet 00:00: mouth [place] 00 every Medical morning. Branch metformin 2021-09 Yes [id number] 500mg Take 1 U nivers ER 500 mg 1-01 tablet by ity o f 24 hr 00:00: mouth [place] tablet 00 daily with Medical breakfast. Branch pantoprazol 2021-09 Yes [id number] 40mg Take 1 Univers e 40 mg EC 1-01 tablet by ity of tablet 00:00: mouth in [place] 00 the Medical morning. Branch pregabalin 2021-09 Yes [id number] 150mg Take 1 Univers 150 mg 1-01 capsule by ity of capsule 00:00: mouth in [place] 00 the Medical morning Branch and 1 capsule at noon and 1 capsule in the evening. rosuvastati 2021-09 Yes [id number] 10mg Take 1 Univers n 10 mg 1-01 tablet by ity of tablet 00:00: mouth at [place] [address] bedtime. Medical Branch SUMAtriptan 2021-09 Yes [id number] 50mg Take 1 Univers 50 mg 1-01 tablet by ity of tablet 00:00: mouth as [place] 00 needed for Medical Migraine. Branch diltiazem 2021-09 Yes [id number] 120mg Take 1 U nivers 120 mg 24 1-01 capsule by ity of hr capsule 00:00: mouth in [facility] as 00 the Medical morning Branch and 1 capsule in the evening. fluticasone 2021-09 Yes [id number] 2{puff} Inhale 2 Univers propionate 1-01 Puffs ity of (FLOVENT 00:00: every 12 [place] HFA) 110 00 (twelve) Medical mcg/actuati hours. Branch on inhaler Rinse mouth after each use. metformin 2021-09 Yes [id number] 500mg Take 1 U nivers ER 500 mg 1-01 tablet by ity o f 24 hr 00:00: mouth [place] tablet 00 daily with Medical breakfast. Branch pantoprazol 2021-09 Yes [id number] 40mg Take 1 Univers e 40 mg EC 1-01 tablet by ity of tablet 00:00: mouth in [place] 00 the Medical morning. Branch pregabalin 2021-09 Yes [id number] 150mg Take 1 Univers 150 mg 1-01 capsule by ity of capsule 00:00: mouth in [place] 00 the Medical morning Branch and 1 capsule at noon and 1 capsule in the evening. rosuvastati 2021-09 Yes [id number] 10mg Take 1 Univers n 10 mg 1-01 tablet by ity of tablet 00:00: mouth at [place] [address] bedtime. Medical Branch SUMAtriptan 2021-09 Yes [id number] 50mg Take 1 Univers 50 mg 1-01 tablet by ity of tablet 00:00: mouth as [place] 00 needed for Medical Migraine. Branch diltiazem 2021-09 Yes [id number] 120mg Take 1 U nivers 120 mg 24 1-01 capsule by ity of hr capsule 00:00: mouth in [place] 00 the Medical morning Branch and 1 capsule in the evening. fluticasone 2021-09 Yes [id number] 2{puff} Inhale 2 Univers propionate 1-01 Puffs ity of (FLOVENT 00:00: every 12 [place] HFA) 110 00 (twelve) Medical mcg/actuati hours. Branch on inhaler Rinse mouth after each use. metformin 2021-09 Yes [id number] 500mg Take 1 U nivers ER 500 mg 1-01 tablet by ity o f 24 hr 00:00: mouth [place] tablet 00 daily with Medical breakfast. Branch pantoprazol 2021-09 Yes [id number] 40mg Take 1 Univers e 40 mg EC 1-01 tablet by ity of tablet 00:00: mouth in [place] 00 the Medical morning. Branch pregabalin 2021-09 Yes [id number] 150mg Take 1 Univers 150 mg 1-01 capsule by ity of capsule 00:00: mouth in [place] 00 the Medical morning Branch and 1 capsule at noon and 1 capsule in the evening. rosuvastati 2021-09 Yes [id number] 10mg Take 1 Univers n 10 mg 1-01 tablet by ity of tablet 00:00: mouth at [place] [address] bedtime. Medical Branch SUMAtriptan 2021-09 Yes [id number] 50mg Take 1 Univers 50 mg 1-01 tablet by ity of tablet 00:00: mouth as [place] 00 needed for Medical Migraine. Branch diltiazem 2021-09 Yes [id number] 120mg Take 1 U nivers 120 mg 24 - capsule by ity of hr capsule 00:00: mouth in [place] 00 the Medical morning Branch and 1 capsule in the evening. fluticasone 2021-09 Yes [id number] 2{puff} Inhale 2 Univers propionate 1-01 Puffs ity of (FLOVENT 00:00: every 12 [place] HFA) 110 00 (twelve) Medical mcg/actuati hours. Branch on inhaler Rinse mouth after each use. metformin 2021-09 Yes [id number] 500mg Take 1 U nivers ER 500 mg - tablet by ity o f 24 hr 00:00: mouth [place] tablet 00 daily with Medical breakfast. Branch pantoprazol 2021-09 Yes [id number] 40mg Take 1 Univers e 40 mg EC 09-26 tablet by ity of tablet 00:00: mouth in [place] 00 the Medical morning. Branch pregabalin 2021-09 Yes [id number] 150mg Take 1 Univers 150 mg 09-26 capsule by ity of capsule 00:00: mouth in [place] 00 the Medical morning Branch and 1 capsule at noon and 1 capsule in the evening. rosuvastati 2021-09 Yes [id number] 10mg Take 1 Univers n 10 mg 09-26 tablet by ity of tablet 00:00: mouth at [place] 00 bedtime. Medical Branch SUMAtriptan 2021-09 Yes [id number] 50mg Take 1 Univers 50 mg 09-26 tablet by ity of tablet 00:00: mouth as [place] 00 needed for Medical Migraine. Branch levothyroxi 2021-09- No [id number] 50ug Take 1 Univers ne 50 mcg 09-26 tablet by ity of tablet 00:00: 00:00 mouth [place] 00 :00 every Medical morning. Branch levothyroxi 2021-09- No [id number] 50ug Take 1 Univers ne 50 mcg 09-26 tablet by ity of tablet 00:00: 00:00 mouth [place] 00 :00 every Medical morning. Branch busPIRone 2021-09 Yes [id number] 20mg Take 2 Un jerrod 10 mg 0-13 tablets by ity of tablet 00:00: mouth in [place] 00 the Medical morning Branch and 2 tablets in the evening. diltiazem 2021-09 Yes [id number] 120mg Take 1 U nivers 120 mg 24 0-13 capsule by ity of hr capsule 00:00: mouth in [place] 00 the Medical morning Branch and 1 capsule in the evening. levothyroxi 2021-09 Yes [id number] 50ug Take 1 Univers ne 50 mcg 0-13 tablet by ity o f tablet 00:00: mouth [place] 00 every Medical morning. Branch losartan 50 2021-09 Yes [id number] 50mg Take 1 Univers mg tablet 0-13 tablet by ity o f 00:00: mouth in [place] 00 the Medical morning Branch and 1 tablet in the evening. metformin 2021-09 Yes [id number] 500mg Take 1 U nivers ER 500 mg 0-13 tablet by ity o f 24 hr 00:00: mouth [place] tablet 00 daily with Medical breakfast. Branch STOP REGULAR METFORMIN. mirabegron 2021-09 Yes [id number] 50mg Take 1 Univers (MYRBETRIQ) 0-13 tablet by ity of 50 mg 00:00: mouth in [place] tablet 00 the Medical morning. Branch semaglutide 2021-09 Yes [id number] Inject Univers (OZEMPIC) 0-13 0.25 mg ity of 0.25 mg or 00:00: under the [place] 0.5 mg(2 00 skin Medical mg/1.5 mL) weekly. Branch PnIj pantoprazol 2021-09 Yes [id number] 40mg Take 1 Univers e 40 mg EC 0-13 tablet by ity of tablet 00:00: mouth in [place] 00 the Medical morning. Branch pregabalin 2021-09 Yes [id number] 150mg Take 1 Univers 150 mg 0-13 capsule by ity of capsule 00:00: mouth in [place] 00 the Medical morning Branch and 1 capsule at noon and 1 capsule in the evening. rosuvastati 2021-09 Yes [id number] 10mg Take 1 Univers n 10 mg 0-13 tablet by ity of tablet 00:00: mouth at [place] 00 bedtime. Medical Branch SUMAtriptan 2021-09 Yes [id number] 50mg Take 1 Univers 50 mg 0-13 tablet by ity of tablet 00:00: mouth as [place] 00 needed for Medical Migraine. Branch topiramate 2021-09 Yes [id number] 75mg Take 3 Univers 25 mg 0-13 tablets by ity of tablet 00:00: mouth in [place] 00 the Medical morning Branch and 3 tablets in the evening. busPIRone 2021-09 Yes [id number] 20mg Take 2 Un jerrod 10 mg 0-13 tablets by ity of tablet 00:00: mouth in [place] 00 the Medical morning Branch and 2 tablets in the evening. losartan 50 2021-09 Yes [id number] 50mg Take 1 Univers mg tablet 0-13 tablet by ity o f 00:00: mouth in [place] 00 the Medical morning Branch and 1 tablet in the evening. mirabegron 2021-09 Yes [id number] 50mg Take 1 Univers (MYRBETRIQ) 0-13 tablet by ity of 50 mg 00:00: mouth in [place] tablet 00 the Medical morning. Branch semaglutide 2021-09 Yes [id number] Inject Univers (OZEMPIC) 0-13 0.25 mg ity of 0.25 mg or 00:00: under the [place] 0.5 mg(2 00 skin Medical mg/1.5 mL) weekly. Branch PnIj topiramate 2021-09 Yes [id number] 75mg Take 3 Univers 25 mg 0-13 tablets by ity of tablet 00:00: mouth in [place] 00 the Medical morning Branch and 3 tablets in the evening. busPIRone 2021-09 Yes [id number] 20mg Take 2 Un [place] 10 mg 0-13 tablets by ity of tablet 00:00: mouth in [place] 00 the Medical morning Branch and 2 tablets in the evening. losartan 50 2021-09 Yes [id number] 50mg Take 1 Univers mg tablet 0-13 tablet by ity o f 00:00: mouth in [place] 00 the Medical morning Branch and 1 tablet in the evening. mirabegron 2021-09 Yes [id number] 50mg Take 1 Univers (MYRBETRIQ) 0-13 tablet by ity of 50 mg 00:00: mouth in [place] tablet 00 the Medical morning. Branch semaglutide 2021-09 Yes [id number] Inject Univers (OZEMPIC) 0-13 0.25 mg ity of 0.25 mg or 00:00: under the [place] 0.5 mg(2 00 skin Medical mg/1.5 mL) weekly. Branch PnIj topiramate 2021-09 Yes [id number] 75mg Take 3 Univers 25 mg 0-13 tablets by ity of tablet 00:00: mouth in [place] 00 the Medical morning Branch and 3 tablets in the evening. busPIRone 2021-09 Yes [id number] 20mg Take 2 Un [place] 10 mg 0-13 tablets by ity of tablet 00:00: mouth in [place] 00 the Medical morning Branch and 2 tablets in the evening. losartan 50 2021-09 Yes [id number] 50mg Take 1 Univers mg tablet 0-13 tablet by ity o f 00:00: mouth in [place] 00 the Medical morning Branch and 1 tablet in the evening. mirabegron 2021-09 Yes [id number] 50mg Take 1 Univers (MYRBETRIQ) 0-13 tablet by ity of 50 mg 00:00: mouth in [place] tablet 00 the Medical morning. Branch semaglutide 2021-09 Yes [id number] Inject Univers (OZEMPIC) 0-13 0.25 mg ity of 0.25 mg or 00:00: under the [place] 0.5 mg(2 00 skin Medical mg/1.5 mL) weekly. Branch PnIj topiramate 2021-09 Yes [id number] 75mg Take 3 Univers 25 mg 0-13 tablets by ity of tablet 00:00: mouth in [place] 00 the Medical morning Branch and 3 tablets in the evening. busPIRone 2021-09 Yes [id number] 20mg Take 2 Un [place] 10 mg 0-13 tablets by ity of tablet 00:00: mouth in [place] 00 the Medical morning Branch and 2 tablets in the evening. losartan 50 2021-09 Yes [id number] 50mg Take 1 Univers mg tablet 0-13 tablet by ity o f 00:00: mouth in [place] 00 the Medical morning Branch and 1 tablet in the evening. mirabegron 2021-09 Yes [id number] 50mg Take 1 Univers (MYRBETRIQ) 0-13 tablet by ity of 50 mg 00:00: mouth in [place] tablet 00 the Medical morning. Branch semaglutide 2021-09 Yes [id number] Inject Univers (OZEMPIC) 0-13 0.25 mg ity of 0.25 mg or 00:00: under the [place] 0.5 mg(2 00 skin Medical mg/1.5 mL) weekly. Branch PnIj topiramate 2021-09 Yes [id number] 75mg Take 3 Univers 25 mg 0-13 tablets by ity of tablet 00:00: mouth in [place] 00 the Medical morning Branch and 3 tablets in the evening. busPIRone 2021-09 Yes [id number] 20mg Take 2 Un [place] 10 mg 0-13 tablets by ity of tablet 00:00: mouth in [place] 00 the Medical morning Branch and 2 tablets in the evening. losartan 50 2021-09 Yes [id number] 50mg Take 1 Univers mg tablet 0-13 tablet by ity o f 00:00: mouth in [place] 00 the Medical morning Branch and 1 tablet in the evening. mirabegron 2021-09 Yes [id number] 50mg Take 1 Univers (MYRBETRIQ) 0-13 tablet by ity of 50 mg 00:00: mouth in [place] tablet 00 the Medical morning. Branch semaglutide 2021-09 Yes [id number] Inject Univers (OZEMPIC) 0-13 0.25 mg ity of 0.25 mg or 00:00: under the [place] 0.5 mg(2 00 skin Medical mg/1.5 mL) weekly. Branch PnIj topiramate 2021-09 Yes [id number] 75mg Take 3 Univers 25 mg 0-13 tablets by ity of tablet 00:00: mouth in [place] 00 the Medical morning Branch and 3 tablets in the evening. diltiazem 2021-09- No [id number] 120mg Take 1 Univers 120 mg 24 07-27 capsule by ity of hr capsule 00:00: 00:00 mouth in [place] 00 :00 the Medical morning Branch and 1 capsule in the evening. levothyroxi 2021-09- No [id number] 50ug Take 1 Univers ne 50 mcg -07-27 tablet by ity of tablet 00:00: 00:00 mouth [place] 00 :00 every Medical morning. Branch metformin 2021-09- No [id number] 500mg Take 1 Univers ER 500 mg 0-07-27 tablet by ity of 24 hr 00:00: 00:00 mouth [place] tablet 00 :00 daily with Medical breakfast. Branch STOP REGULAR METFORMIN. pantoprazol 2021-09- No [id number] 40mg Take 1 Univers e 40 mg EC 0-07-27 tablet by ity of tablet 00:00: 00:00 mouth in [place] 00 :00 the Medical morning. Branch pregabalin 2021-09- No [id number] 150mg Take 1 Univers 150 mg 07-27 capsule by ity of capsule 00:00: 00:00 mouth in [place] 00 :00 the Medical morning Branch and 1 capsule at noon and 1 capsule in the evening. rosuvastati 2021-09- No [id number] 10mg Take 1 Univers n 10 mg 07-27 tablet by ity of tablet 00:00: 00:00 mouth at [place] 00 :00 bedtime. Medical Branch SUMAtriptan 2021-09- No [id number] 50mg Take 1 Univers 50 mg 07-27 tablet by ity of tablet 00:00: 00:00 mouth as [place] 00 :00 needed for Medical Migraine. Mode diltiazem 2021-09- No [id number] 120mg Take 1 Univers 120 mg 24 07-27 capsule by ity of hr capsule 00:00: 00:00 mouth in [facility] 00 :00 the Medical morning Branch and 1 capsule in the evening. levothyroxi 2021-09- No [id number] 50ug Take 1 Univers ne 50 mcg 07-27 tablet by ity of tablet 00:00: 00:00 mouth [place] 00 :00 every Medical morning. Mode metformin 2021-09- No [id number] 500mg Take 1 Univers ER 500 mg 07-27 tablet by ity of 24 hr 00:00: 00:00 mouth [place] tablet 00 :00 daily with Medical breakfast. Mode STOP REGULAR METFORMIN. pantoprazol 2021-09- No [id number] 40mg Take 1 Univers e 40 mg EC 07-27 tablet by ity of tablet 00:00: 00:00 mouth in [place] 00 :00 the Medical morning. Mode pregabalin 2021-09- No [id number] 150mg Take 1 Univers 150 mg 07-27 capsule by ity of capsule 00:00: 00:00 mouth in [place] 00 :00 the Medical morning Branch and 1 capsule at noon and 1 capsule in the evening. rosuvastati 2021-09- No [id number] 10mg Take 1 Univers n 10 mg 0-13 11-01 tablet by ity of tablet 00:00: 00:00 mouth at [place] 00 :00 bedtime. Medical Branch SUMAtriptan 2021-09- No [id number] 50mg Take 1 Univers 50 mg 0-13 11-01 tablet by ity of tablet 00:00: 00:00 mouth as [place] 00 :00 needed for Medical Migraine. Branch SUMAtriptan Yes [id number] 50mg Take 1 Univers 50 mg 9-30 tablet by ity of tablet 00:00: mouth as [place] 00 needed for Medical Migraine. Branch SUMAtriptan Yes [id number] 50mg Take 1 Univers 50 mg 9-30 tablet by ity of tablet 00:00: mouth as [place] 00 needed for Medical Migraine. Branch SUMAtriptan Yes [id number] 50mg Take 1 Univers 50 mg 9-30 tablet by ity of tablet 00:00: mouth as [place] 00 needed for Medical Migraine. Branch SUMAtriptan 0 Yes [id number] 50mg Take 1 Univers 50 mg 9-30 tablet by ity of tablet 00:00: mouth as [place] 00 needed for Medical Migraine. Branch SUMAtriptan Yes [id number] 50mg Take 1 Univers 50 mg 9-30 tablet by ity of tablet 00:00: mouth as [place] 00 needed for Medical Migraine. Branch SUMAtriptan 2021- No [id number] 50mg Take 1 Univers 50 mg 9-30 10-13 tablet by ity of tablet 00:00: 00:00 mouth as [place] 00 :00 needed for Medical Migraine. Branch FOLIC ACID Yes Take by Univ ers ORAL 06-17 mouth ity of 10:41: daily. [place] 15 Medical Branch [facility]IVIT [facility] &[facility]F 06-17 mouth. ity of ERROUS FUM 10:41: [place] (MULTI 15 Medical VITAMIN Branch ORAL) METHYLCELLU Yes Univer s LOSE (FIBER 06-17 ity of THERAPY 10:41: [place] MISC) 15 Medical Branch DOCUSATE Yes [facility] SODIUM 06-17 mouth. ity of (COLACE [...] - mouth ity of EXTRACT 10:41: daily. [place] (CRANBERRY 15 Medical ORAL) Branch CALCIUM Yes Take by Univers ORAL - mouth ity of 10:41: daily. [place] 15 Medical Branch DOCOSAHEXAN Yes 1000mg Take 1,000 Univers OIC 9-22 mg by ity of ACID/EPA 10:41: mouth [place] (FISH OIL 15 daily. Medical ORAL) Branch BIOTIN ORAL Yes Take by Uni vers 06-17 mouth. ity of 10:41: [place] [facility] Branch FOLIC ACID Yes Take by Univ ers ORAL 06-17 mouth ity of 10:41: daily. [place] 15 Medical Branch MULTIVIT Yes Take by Univer s &MINERALS/F 06-17 mouth. ity of ERROUS FUM 10:41: [place] (MULTI 15 Medical VITAMIN Branch ORAL) METHYLCELLU [...] - mouth ity of EXTRACT 10:41: daily. [place] (CRANBERRY 15 Medical ORAL) Branch CALCIUM Yes Take by Univers ORAL - mouth ity of 10:41: daily. [place] 15 Medical Branch DOCOSAHEXAN Yes 1000mg Take 1,000 [facility] OIC 9-22 mg by ity of ACID/EPA 10:41: mouth [place] (FISH OIL 15 daily. Medical ORAL) Branch BIOTIN ORAL Yes Take by Uni vers - mouth. ity of 10:41: [place] 15 Medical Branch FOLIC ACID Yes Take by Univ ers ORAL 06-17 mouth ity of 10:41: daily. [place] 15 Medical Branch MULTIVIT Yes Take by Un[facility] s &MINERALS/F - mouth. ity of ERROUS FUM 10:41: [place] (MULTI 15 Medical VITAMIN Branch ORAL) [facility] - ity of THERAPY 10:41: [place] MISC) Medical Branch DOCUSATE Yes Take by [...] 06-17 mouth ity of EXTRACT 10:41: daily. [place] (CRANBERRY 15 Medical ORAL) Branch CALCIUM Yes Take by [facility] ORAL - mouth ity of 10:41: daily. [place] [facility] Branch DOCOSAHEXAN Yes 1000mg Take 1,000 [facility] OIC 9-22 mg by ity of ACID/EPA 10:41: mouth [place] (FISH OIL 15 daily. Medical ORAL) Branch BIOTIN ORAL Yes Take by Uni vers -22 mouth. ity of 10:41: [place] [address] Medical Branch FOLIC ACID Yes Take by Univ ers ORAL - mouth ity of 10:41: daily. [place] [address] Medical Branch MULTIVIT Yes Take by Univer s &MINERALS/F - mouth. ity of ERROUS FUM 10:41: [place] (MULTI 15 Medical VITAMIN Branch ORAL) METHYLCELLU Yes Univer s LOSE (FIBER 9-22 ity of THERAPY 10:41: [facility]) 15 Medical Branch DOCUSATE Yes Take by [...] Branch unit) tablet CRANBERRY [facility]-17 mouth ity of EXTRACT 10:41: daily. [place] (CRANBERRY 15 Medical ORAL) Branch CALCIUM Yes Take by [facility] ORAL 06-17 mouth ity of 10:41: daily. [place] 15 Medical Branch DOCOSAHEXAN Yes 1000mg Take 1,000 [facility] OIC 9-22 mg by ity of ACID/EPA 10:41: mouth [place] (FISH OIL 15 daily. Medical ORAL) Branch BIOTIN ORAL Yes Take by Uni vers - mouth. ity of 10:41: [place] 15 Medical Branch FOLIC ACID Yes Take by Univ ers ORAL - mouth ity of 10:41: daily. [place] 15 Medical Branch MULTIVIT Yes [facility] &[facility]/F 06-17 mouth. ity of ERROUS FUM 10:41: [place] (MULTI 15 Medical VITAMIN Branch ORAL) METHYLCELLU Yes Univer s LOSE (FIBER 9-22 ity of THERAPY 10:41: [facility]) 15 Medical Branch DOCUSATE Yes Take by Univer s SODIUM -22 mouth. ity of (COLACE 10:41: [place] ORAL) 15 Medical Branch vitamin C Yes [...] - mouth ity of EXTRACT 10:41: daily. [place] (CRANBERRY 15 Medical ORAL) Branch CALCIUM Yes Take by [facility] ORAL - mouth ity of 10:41: daily. [place] 15 Medical Branch DOCOSAHEXAN Yes 1000mg Take 1,000 [facility] OIC 9-22 mg by ity of ACID/EPA 10:41: mouth [place] (FISH OIL 15 daily. Medical ORAL) Branch BIOTIN ORAL Yes Take by Uni vers 06-17 mouth. ity of 10:41: [place] [address] Medical Branch FOLIC ACID Yes Take by Univ ers ORAL 06-17 mouth ity of 10:41: daily. [place] [address] Medical Branch MULTIVIT Yes Take by Un[facility] &MINERALS/F 06-17 mouth. ity of ERROUS FUM 10:41: [place] (MULTI 15 Medical VITAMIN Branch ORAL) METHYLCELLU Yes Univer s LOSE (FIBER 06-17 ity of THERAPY 10:41: [place] MIS) Medical Branch DOCUSATE Yes Take by [...] - mouth ity of EXTRACT 10:41: daily. [place] (CRANBERRY 15 Medical ORAL) Branch CALCIUM Yes Take by [facility] ORAL - mouth ity of 10:41: daily. [place] [address] Medical Branch DOCOSAHEXAN Yes 1000mg Take 1,000 [facility] OIC 9-22 mg by ity of ACID/EPA 10:41: mouth [place] (FISH OIL 15 daily. Medical ORAL) Branch BIOTIN ORAL Yes Take by [facility] vers 9-22 mouth. ity of 10:41: [place] 15 Medical Branch FOLIC ACID Yes Take by Univ ers ORAL 9- mouth ity of 10:41: daily. [place] 15 Medical Branch MULTIVIT Yes Take by Un[facility] &MINERALS/F - mouth. ity of ERROUS FUM 10:41: [place] (MULTI 15 Medical VITAMIN Branch ORAL) METHYLCELLU Yes Univer s LOSE (FIBER 9-22 ity of THERAPY 10:41: [facility]) 15 Medical Branch DOCUSATE 0 Yes Take [...] Branch unit) tablet CRANBERRY Yes [facility] - mouth ity of EXTRACT 10:41: daily. [place] (CRANBERRY 15 Medical ORAL) Branch CALCIUM Yes Take by [facility] ORAL - mouth ity of 10:41: daily. [place] 15 Medical Branch DOCOSAHEXAN Yes 1000mg Take 1,000 [facility] OIC 9-22 mg by ity of ACID/EPA 10:41: mouth [place] (FISH OIL 15 daily. Medical ORAL) Branch BIOTIN ORAL Yes Take by Uni vers - mouth. ity of 10:41: [place] 15 Medical Branch FOLIC ACID Yes Take by Univ ers ORAL 9-22 mouth ity of 10:41: daily. [place] 15 Medical Branch MULTIVIT Yes Take by Univer s &MINERALS/F -22 mouth. ity of ERROUS FUM 10:41: [place] (MULTI 15 Medical VITAMIN Branch ORAL) METHYLCELLU 0 Yes Univer s LOSE (FIBER 9-22 ity of THERAPY 10:41: [facility]) 15 Medical Branch DOCUSATE Yes Take by [...] 06-17 mouth ity of EXTRACT 10:41: daily. [place] (CRANBERRY 15 Medical ORAL) Branch CALCIUM Yes Take by [facility] ORAL 06-17 mouth ity of 10:41: daily. [place] 15 Medical Branch DOCOSAHEXAN Yes 1000mg Take 1,000 [facility] OIC 9-22 mg by ity of ACID/EPA 10:41: mouth [place] (FISH OIL 15 daily. Medical ORAL) Branch BIOTIN ORAL Yes Take by Uni vers 06-17 mouth. ity of 10:41: [place] [address] Medical Branch FOLIC ACID Yes Take by Univ ers ORAL 06-17 mouth ity of 10:41: daily. [place] [address] Medical Branch MULTIVIT Yes Take by Univer s &MINERALS/F 06-17 mouth. ity of ERROUS FUM 10:41: [place] (MULTI 15 Medical VITAMIN Branch ORAL) METHYLCELLU Yes Univer s LOSE (FIBER 06-17 ity of THERAPY 10:41: [facility]) 15 Medical Branch DOCUSATE Yes Take by [...] Branch unit) tablet CRANBERRY [facility] - mouth ity of EXTRACT 10:41: daily. [place] (CRANBERRY 15 Medical ORAL) Branch CALCIUM Yes Take by [facility] ORAL 9-22 mouth ity of 10:41: daily. [place] 15 Medical Branch DOCOSAHEXAN Yes 1000mg Take 1,000 [facility] OIC 9-22 mg by ity of ACID/EPA 10:41: mouth [place] (FISH OIL 15 daily. Medical ORAL) Branch BIOTIN ORAL Yes Take by Uni vers 06-17 mouth. ity of 10:41: [place] 15 Medical Branch FOLIC ACID Yes Take by Univ ers ORAL - mouth ity of 10:41: daily. [place] 15 Medical Branch MULTIVIT Yes Take by Univer s &MINERALS/F 06-17 mouth. ity of ERROUS FUM 10:41: [place] (MULTI 15 Medical VITAMIN Branch ORAL) METHYLCELLU Yes Univer s LOSE (FIBER 06-17 ity of THERAPY 10:41: [facility]) 15 Medical Branch DOCUSATE Yes Take by [...] Branch unit) tablet CRANBERRY [facility] mouth ity of EXTRACT 10:41: daily. [place] (CRANBERRY 15 Medical ORAL) Branch CALCIUM Yes Take by Univer s ORAL - mouth ity of 10:41: daily. [place] 15 Medical Branch DOCOSAHEXAN Yes 1000mg Take 1,000 [facility] OIC 9-22 mg by ity of ACID/EPA 10:41: mouth [place] (FISH OIL 15 daily. Medical ORAL) Branch BIOTIN ORAL Yes Take by Uni vers - mouth. ity of 10:41: [place] 15 Medical Branch FOLIC ACID Yes Take by Univ ers ORAL - mouth ity of 10:41: daily. [place] 15 Medical Branch MULTIVIT 2022-0 Yes Take by Univer s &MINERALS/F 9-22 mouth. ity of ERROUS FUM 10:41: [place] (MULTI 15 Medical VITAMIN Branch ORAL) METHYLCELLU 0 Yes Univer s LOSE (FIBER 9-22 ity of THERAPY 10:41: [facility]) 15 Medical Branch DOCUSATE 0 Yes Take [...] Branch unit) tablet CRANBERRY [facility] - mouth ity of EXTRACT 10:41: daily. [place] (CRANBERRY 15 Medical ORAL) Branch CALCIUM Yes Take by [facility] ORAL -22 mouth ity of 10:41: daily. [place] [address] Medical Branch DOCOSAHEXAN Yes 1000mg Take 1,000 [facility] OIC 9-22 mg by ity of ACID/EPA 10:41: mouth [place] (FISH OIL 15 daily. Medical ORAL) Branch BIOTIN ORAL Yes Take by Uni vers -22 mouth. ity of 10:41: [place] [address] Medical Branch FOLIC ACID Yes Take by Uni vers ORAL 9-22 mouth ity of 10:41: daily. [place] [address] Medical Branch MULTIVIT Yes Take by Univer s &MINERALS/F 9-22 mouth. ity of ERROUS FUM 10:41: [place] (MULTI 15 Medical VITAMIN Branch ORAL) METHYLCELLU 0 Yes Univer s LOSE (FIBER 9-22 ity of THERAPY 10:41: [facility]) Medical Branch DOCUSATE 0 Yes Take by [facility] SODIUM 9-22 mouth. ity of (COLACE [...] - mouth ity of EXTRACT 10:41: daily. [place] (CRANBERRY 15 Medical ORAL) Branch CALCIUM Yes Take by [facility] ORAL - mouth ity of 10:41: daily. [place] 15 Medical Branch DOCOSAHEXAN Yes 1000mg Take 1,000 [facility] OIC 9-22 mg by ity of ACID/EPA 10:41: mouth [place] (FISH OIL 15 daily. Medical ORAL) Branch BIOTIN ORAL Yes Take by Uni vers 06-17 mouth. ity of 10:41: [place] [address] Medical Branch FOLIC ACID Yes Take by Univ ers ORAL 06-17 mouth ity of 10:41: daily. [place] [address] Medical Branch MULTIVIT Yes Take by Univer s &MINERALS/F 06-17 mouth. ity of ERROUS FUM 10:41: [place] (MULTI 15 Medical VITAMIN Branch ORAL) METHYLCELLU Yes Univer s LOSE (FIBER 06-17 ity of THERAPY 10:41: [place] MISC) Medical Branch DOCUSATE Yes Take by [...] - mouth ity of EXTRACT 10:41: daily. [place] (CRANBERRY 15 Medical ORAL) Branch CALCIUM Yes Take by [facility] ORAL - mouth ity of 10:41: daily. [place] 15 Medical Branch DOCOSAHEXAN Yes 1000mg Take 1,000 [facility] OIC 9-22 mg by ity of ACID/EPA 10:41: mouth [place] (FISH OIL 15 daily. Medical ORAL) Branch BIOTIN ORAL Yes Take by Uni vers 9-22 mouth. ity of 10:41: [place] 15 Medical Branch FOLIC ACID 0 Yes Take by Univ ers ORAL - mouth ity of 10:41: daily. [place] 15 Medical Branch MULTIVIT Yes Take by Univer s &MINERALS/F - mouth. ity of ERROUS FUM 10:41: [place] (MULTI 15 Medical VITAMIN Branch ORAL) METHYLCELLU 0 Yes Univer s LOSE (FIBER - ity of THERAPY 10:41: [facility]) 15 Medical Branch DOCUSATE Yes Take by [...] - mouth ity of EXTRACT 10:41: daily. [place] (CRANBERRY 15 Medical ORAL) Branch CALCIUM Yes Take by [facility] ORAL 9- mouth ity of 10:41: daily. [place] Medical Branch DOCOSAHEXAN Yes 1000mg Take 1,000 [facility] OIC 9-22 mg by ity of ACID/EPA 10:41: mouth [place] (FISH OIL 15 daily. Medical ORAL) Branch BIOTIN ORAL Yes Take by Uni vers 9-22 mouth. ity of 10:41: [place] 15 Medical Branch FOLIC ACID 0 Yes Take by Univ ers ORAL - mouth ity of 10:41: daily. [place] 15 Medical Branch MULTIVIT 0 Yes Take by Univer s &MINERALS/F - mouth. ity of ERROUS FUM 10:41: [place] (MULTI 15 Medical VITAMIN Branch ORAL) METHYLCELLU [...] 06-17 mouth ity of EXTRACT 10:41: daily. [place] (CRANBERRY 15 Medical ORAL) Branch CALCIUM Yes Take by [facility] ORAL 06-17 mouth ity of 10:41: daily. [place] [address] Medical Branch DOCOSAHEXAN Yes 1000mg Take 1,000 [facility] OIC 9-22 mg by ity of ACID/EPA 10:41: mouth [place] (FISH OIL 15 daily. Medical ORAL) Branch BIOTIN ORAL Yes Take by Uni vers 06-17 mouth. ity of 10:41: [place] [address] Medical Branch FOLIC ACID Yes Take by Univ ers ORAL 06-17 mouth ity of 10:41: daily. [place] [address] Medical Branch MULTIVIT Yes Take by Univer s &MINERALS/F 06-17 mouth. ity of ERROUS FUM 10:41: [place] (MULTI 15 Medical VITAMIN Branch ORAL) METHYLCELLU Yes Univer s LOSE (FIBER 06-17 ity of THERAPY 10:41: [facility]) 15 Medical Branch vitamin C Yes 1000mg [...] - mouth ity of EXTRACT 10:41: daily. [place] (CRANBERRY 15 Medical ORAL) Branch CALCIUM Yes Take by [facility] ORAL - mouth ity of 10:41: daily. [place] [address] Medical Branch DOCOSAHEXAN Yes 1000mg Take 1,000 [facility] OIC 9-22 mg by ity of ACID/EPA 10:41: mouth [place] (FISH OIL 15 daily. Medical ORAL) Branch BIOTIN ORAL 0 Yes Take by Uni vers - mouth. ity of 10:41: [place] 15 Medical Branch FOLIC ACID 0 Yes Take by Univ ers ORAL - mouth ity of 10:41: daily. [place] 15 Medical Branch MULTIVIT 0 Yes Take by Univer s &MINERALS/F - mouth. ity of ERROUS FUM 10:41: [place] (MULTI 15 Medical VITAMIN Branch ORAL) METHYLCELLU 0 Yes Univer s LOSE (FIBER - ity of THERAPY 10:41: [facility]) 15 Medical Branch vitamin C Yes 1000mg [...] - mouth ity of EXTRACT 10:41: daily. [place] (CRANBERRY 15 Medical ORAL) Branch CALCIUM Yes Take by [facility] ORAL - mouth ity of 10:41: daily. [place] 15 Medical Branch DOCOSAHEXAN Yes 1000mg Take 1,000 [facility] OIC 9-22 mg by ity of ACID/EPA 10:41: mouth [place] (FISH OIL 15 daily. Medical ORAL) Branch BIOTIN ORAL Yes Take by Uni vers -22 mouth. ity of 10:41: [place] 15 Medical Branch FOLIC ACID 0 Yes Take by Univ ers ORAL - mouth ity of 10:41: daily. [place] 15 Medical Branch MULTIVIT 0 Yes Take by Univer s &MINERALS/F - mouth. ity of ERROUS FUM 10:41: [place] (MULTI 15 Medical VITAMIN Branch ORAL) METHYLCELLU 0 Yes Univer s LOSE (FIBER 9-22 ity of THERAPY 10:41: [facility]) 15 Medical Branch vitamin C 0 Yes [...] 06-17 mouth ity of EXTRACT 10:41: daily. [place] (CRANBERRY 15 Medical ORAL) Branch CALCIUM Yes Take by [facility] ORAL 06-17 mouth ity of 10:41: daily. [place] 15 Medical Branch DOCOSAHEXAN Yes 1000mg Take 1,000 [facility] OIC 9-22 mg by ity of ACID/EPA 10:41: mouth [place] (FISH OIL 15 daily. Medical ORAL) Branch BIOTIN ORAL Yes Take by Uni vers 06-17 mouth. ity of 10:41: [place] [address] Medical Branch FOLIC ACID Yes Take by Univ ers ORAL 06-17 mouth ity of 10:41: daily. [place] [address] Medical Branch MULTIVIT Yes [facility] &[facility]/F 06-17 mouth. ity of ERROUS FUM 10:41: [place] (MULTI 15 Medical VITAMIN Branch ORAL) METHYLCELLU Yes [facility] s LOSE (FIBER 06-17 ity of THERAPY [...] - mouth ity of EXTRACT 10:41: daily. [place] (CRANBERRY 15 Medical ORAL) Branch CALCIUM Yes Take by Univer s ORAL 06-17 mouth ity of 10:41: daily. [place] 15 Medical Branch DOCOSAHEXAN Yes 1000mg Take 1,000 [facility] OIC 9-22 mg by ity of ACID/EPA 10:41: mouth [place] (FISH OIL 15 daily. Medical ORAL) Branch BIOTIN ORAL 2021-0 Yes Take by Uni vers 9-22 mouth. ity of 10:41: [place] 15 Medical Branch SUMAtriptan 2-0 Yes [id number] 50mg Take 1 [facility] 50 mg 9-22 tablet by ity of tablet 00:00: mouth as [place] 00 needed for Medical Migraine. Branch topiramate 2-0 Yes [id number] 75mg Take 3 [facility] 25 mg 9-22 tablets by ity of tablet 00:00: mouth in [place] 00 the Medical morning Branch and 3 tablets in the evening. SUMAtriptan 2-0 Yes [id number] 50mg Take 1 [facility] 50 mg 9-22 tablet by ity of tablet 00:00: mouth as [place] 00 needed for Medical Migraine. Branch topiramate 2021-0 Yes [id number] 75mg Take 3 [facility] 25 mg 9-22 tablets by ity of tablet 00:00: mouth in [place] 00 the Medical morning Branch and 3 tablets in the evening. SUMAtriptan 2-0 Yes [id number] 50mg Take 1 [facility] 50 mg 9-22 tablet by ity of tablet 00:00: mouth as [place] 00 needed for Medical Migraine. Branch topiramate 2021-0 Yes [id number] 75mg Take 3 [facility] 25 mg 9-22 tablets by ity of tablet 00:00: mouth in [place] 00 the Medical morning Branch and 3 tablets in the evening. SUMAtriptan 2-0 Yes [id number] 50mg Take 1 [facility] 50 mg 9-22 tablet by ity of tablet 00:00: mouth as [place] 00 needed for Medical Migraine. Branch topiramate 2-0 Yes [id number] 75mg Take 3 [facility] 25 mg 9-22 tablets by ity of tablet 00:00: mouth in [place] 00 the Medical morning Branch and 3 tablets in the evening. topiramate 2022-0 Yes [id number] 75mg Take 3 [facility] 25 mg 9-22 tablets by ity of tablet 00:00: mouth in [place] 00 the Medical morning Branch and 3 tablets in the evening. topiramate 2022-0 Yes [id number] 75mg Take 3 [facility] 25 mg 9-22 tablets by ity of tablet 00:00: mouth in [place] 00 the Medical morning Branch and 3 tablets in the evening. topiramate 2022-0 Yes [id number] 75mg Take 3 [facility] 25 mg 9-22 tablets by ity of tablet 00:00: mouth in [place] 00 the Medical morning Branch and 3 tablets in the evening. topiramate 2021-0 Yes [id number] 75mg Take 3 [facility] 25 mg 9-22 tablets by ity of tablet 00:00: mouth in [place] 00 the Medical morning Branch and 3 tablets in the evening. topiramate 2021-0 Yes [id number] 75mg Take 3 [facility] 25 mg 9-22 tablets by ity of tablet 00:00: mouth in [place] 00 the Medical morning Branch and 3 tablets in the evening. topiramate 2021-0 Yes [id number] 75mg Take 3 [facility] 25 mg 9-22 tablets by ity of tablet 00:00: mouth in [place] 00 the Medical morning Branch and 3 tablets in the evening. topiramate 2021-0 2021- No [id number] 75mg Take 3 [facility] 25 mg 9-22 10-13 tablets by ity of tablet 00:00: 00:00 mouth in [place] 00 :00 the Medical morning Branch and 3 tablets in the evening. SUMAtriptan 2021-0 2021- No [id number] 50mg Take 1 [facility] 50 mg 9-22 09-30 tablet by ity of tablet 00:00: 00:00 mouth as [place] 00 :00 needed for Medical Migraine. Branch pantoprazol 0 Yes [id number] 40mg Take 1 [facility] e 40 mg EC 9-16 tablet by ity of tablet 00:00: mouth in [place] 00 the Medical morning. Branch Simethicone 2021-0 Yes [id number] 125mg Take 1 [facility] 125 mg 9-16 capsule by ity of 00:00: mouth [place] 00 after Medical meals and Branch at bedtime as needed for Gas (Per bowel prep). pantoprazol 2021-0 Yes [id number] 40mg Take 1 [facility] e 40 mg EC 9-16 tablet by ity of tablet 00:00: mouth in [place] 00 the Medical morning. Branch Simethicone 2021-0 Yes [id number] 125mg Take 1 [facility] 125 mg 9-16 capsule by ity of 00:00: mouth [place] 00 after Medical meals and Branch at bedtime as needed for Gas (Per bowel prep). pantoprazol 2021-0 Yes [id number] 40mg Take 1 [facility] e 40 mg EC 9-16 tablet by ity of tablet 00:00: mouth in [place] 00 the Medical morning. Branch Simethicone 2021-0 Yes [id number] 125mg Take 1 [facility] 125 mg 9-16 capsule by ity of 00:00: mouth [place] 00 after Medical meals and Branch at bedtime as needed for Gas (Per bowel prep). pantoprazol 0 Yes [id number] 40mg Take 1 [facility] e 40 mg EC 9-16 tablet by ity of tablet 00:00: mouth in [place] 00 the Medical morning. Branch Simethicone 0 Yes [id number] 125mg Take 1 [facility] 125 mg 9-16 capsule by ity of 00:00: mouth [place] 00 after Medical meals and Branch at bedtime as needed for Gas (Per bowel prep). pantoprazol 0 Yes [id number] 40mg Take 1 [facility] e 40 mg EC 9-16 tablet by ity of tablet 00:00: mouth in [place] 00 the Medical morning. Branch Simethicone 0 Yes [id number] 125mg Take 1 [facility] 125 mg 9-16 capsule by ity of 00:00: mouth [place] 00 after Medical meals and Branch at bedtime as needed for Gas (Per bowel prep). pantoprazol 0 Yes [id number] 40mg Take 1 [facility] e 40 mg EC 9-16 tablet by ity of tablet 00:00: mouth in [place] 00 the Medical morning. Branch Simethicone 0 Yes [id number] 125mg Take 1 [facility] 125 mg 9-16 capsule by ity of 00:00: mouth [place] 00 after Medical meals and Branch at bedtime as needed for Gas (Per bowel prep). pantoprazol 2021-0 Yes [id number] 40mg Take 1 [facility] e 40 mg EC 9-16 tablet by ity of tablet 00:00: mouth in [place] 00 the Medical morning. Branch Simethicone 0 Yes [id number] 125mg Take 1 [facility] 125 mg 9-16 capsule by ity of 00:00: mouth [place] 00 after Medical meals and Branch at bedtime as needed for Gas (Per bowel prep). pantoprazol 2021-0 Yes [id number] 40mg Take 1 [facility] e 40 mg EC 9-16 tablet by ity of tablet 00:00: mouth in [place] 00 the Medical morning. Branch Simethicone 0 Yes [id number] 125mg Take 1 [facility] 125 mg 9-16 capsule by ity of 00:00: mouth [place] 00 after Medical meals and Branch at bedtime as needed for Gas (Per bowel prep). pantoprazol 0 Yes [id number] 40mg Take 1 [facility] e 40 mg EC 9-16 tablet by ity of tablet 00:00: mouth in [place] 00 the Medical morning. Branch Simethicone 0 Yes [id number] 125mg Take 1 [facility] 125 mg 9-16 capsule by ity of 00:00: mouth [place] 00 after Medical meals and Branch at bedtime as needed for Gas (Per bowel prep). pantoprazol Yes [id number] 40mg Take 1 [facility] e 40 mg EC 9-16 tablet by ity of tablet 00:00: mouth in [place] 00 the Medical morning. Branch Simethicone Yes [id number] 125mg Take 1 [facility] 125 mg 9-16 capsule by ity of 00:00: mouth [place] 00 after Medical meals and Branch at bedtime as needed for Gas (Per bowel prep). pantoprazol Yes [id number] 40mg Take 1 [facility] e 40 mg EC 9-16 tablet by ity of tablet 00:00: mouth in [place] 00 the Medical morning. Branch Simethicone 0 Yes [id number] 125mg Take 1 [facility] 125 mg 9-16 capsule by ity of 00:00: mouth [place] 00 after Medical meals and Branch at bedtime as needed for Gas (Per bowel prep). pantoprazol 2021-0 Yes [id number] 40mg Take 1 [facility] e 40 mg EC 9-16 tablet by ity of tablet 00:00: mouth in [place] 00 the Medical morning. Branch Simethicone Yes [id number] 125mg Take 1 [facility] 125 mg 9-16 capsule by ity of 00:00: mouth [place] 00 after Medical meals and Branch at bedtime as needed for Gas (Per bowel prep). pantoprazol 2021-0 Yes [id number] 40mg Take 1 [facility] e 40 mg EC 9-16 tablet by ity of tablet 00:00: mouth in [place] 00 the Medical morning. Branch Simethicone 0 Yes [id number] 125mg Take 1 [facility] 125 mg 9-16 capsule by ity of 00:00: mouth [place] 00 after Medical meals and Branch at bedtime as needed for Gas (Per bowel prep). pantoprazol Yes [id number] 40mg Take 1 [facility] e 40 mg EC 9-16 tablet by ity of tablet 00:00: mouth in [place] 00 the Medical morning. Branch Simethicone 0 Yes [id number] 125mg Take 1 [facility] 125 mg 9-16 capsule by ity of 00:00: mouth [place] 00 after Medical meals and Branch at bedtime as needed for Gas (Per bowel prep). pantoprazol Yes [id number] 40mg Take 1 [facility] e 40 mg EC 9-16 tablet by ity of tablet 00:00: mouth in [place] 00 the Medical morning. Branch Simethicone Yes [id number] 125mg Take 1 [facility] 125 mg 9-16 capsule by ity of 00:00: mouth [place] 00 after Medical meals and Branch at bedtime as needed for Gas (Per bowel prep). Simethicone 0 Yes [id number] 125mg Take 1 [facility] 125 mg 9-16 capsule by ity of 00:00: mouth [place] 00 after Medical meals and Branch at bedtime as needed for Gas (Per bowel prep). Simethicone Yes [id number] 125mg Take 1 [facility] 125 mg 9-16 capsule by ity of 00:00: mouth [place] 00 after Medical meals and Branch at bedtime as needed for Gas (Per bowel prep). Simethicone 2021- No [id number] 125mg Take 1 [facility] 125 mg 9-16 11-01 capsule by ity of 00:00: 00:00 mouth [place] 00 :00 after Medical meals and Branch at bedtime as needed for Gas (Per bowel prep). Simethicone 0 2021- No [id number] 125mg Take 1 [facility] 125 mg 9-16 11-01 capsule by ity of 00:00: 00:00 mouth [place] 00 :00 after Medical meals and Branch at bedtime as needed for Gas (Per bowel prep). pantoprazol 2- No [id number] 40mg Take 1 [facility] e 40 mg EC 9-16 10-13 tablet by ity of tablet 00:00: 00:00 mouth in [place] 00 :00 the Medical morning. Branch SUMAtriptan 2022-0 Yes [id number] TAKE 1 [facility] 50 mg 9-06 TABLET BY ity of tablet 00:00: MOUTH [place] 00 NEEDED FOR Medical MIGRAINE Branch HEADACHE ( MAY REPEAT IN 2 HOURS ) SUMAtriptan 2022-0 Yes [id number] TAKE 1 [facility] 50 mg 9-06 TABLET BY ity of tablet 00:00: MOUTH [place] 00 NEEDED FOR Medical MIGRAINE Branch HEADACHE ( MAY REPEAT IN 2 HOURS ) SUMAtriptan 2022-0 Yes [id number] TAKE 1 [facility] 50 mg 9-06 TABLET BY ity of tablet 00:00: MOUTH [place] 00 NEEDED FOR Medical MIGRAINE Branch HEADACHE ( MAY REPEAT IN 2 HOURS ) SUMAtriptan 2022-0 Yes [id number] TAKE 1 [facility] 50 mg 9-06 TABLET BY ity of tablet 00:00: MOUTH [place] 00 NEEDED FOR Medical MIGRAINE Branch HEADACHE ( MAY REPEAT IN 2 HOURS ) SUMAtriptan 2022-0 Yes [id number] TAKE 1 [facility] 50 mg 9-06 TABLET BY ity of tablet 00:00: MOUTH [place] 00 NEEDED FOR Medical MIGRAINE Branch HEADACHE ( MAY REPEAT IN 2 HOURS ) SUMAtriptan 2022-0 Yes [id number] TAKE 1 [facility] 50 mg 9-06 TABLET BY ity of tablet 00:00: MOUTH [place] 00 NEEDED FOR Medical MIGRAINE Branch HEADACHE ( MAY REPEAT IN 2 HOURS ) SUMAtriptan 2022-0 Yes [id number] TAKE 1 [facility] 50 mg 9-06 TABLET BY ity of tablet 00:00: MOUTH [place] 00 NEEDED FOR Medical MIGRAINE Branch HEADACHE ( MAY REPEAT IN 2 HOURS ) SUMAtriptan 2022-0 Yes [id number] TAKE 1 [facility] 50 mg 9-06 TABLET BY ity of tablet 00:00: MOUTH [place] 00 NEEDED FOR Medical MIGRAINE Branch HEADACHE ( MAY REPEAT IN 2 HOURS ) SUMAtriptan 2022-0 Yes [id number] TAKE 1 [facility] 50 mg 9-06 TABLET BY ity of tablet 00:00: MOUTH [place] 00 NEEDED FOR Medical MIGRAINE Branch HEADACHE ( MAY REPEAT IN 2 HOURS ) SUMAtriptan 2022-0 Yes [id number] TAKE 1 [facility] 50 mg 9-06 TABLET BY ity of tablet 00:00: MOUTH [place] 00 NEEDED FOR Medical MIGRAINE Branch HEADACHE ( MAY REPEAT IN 2 HOURS ) SUMAtriptan 2022-0 Yes [id number] TAKE 1 [facility] 50 mg 9-06 TABLET BY ity of tablet 00:00: MOUTH [place] 00 NEEDED FOR Medical MIGRAINE Branch HEADACHE ( MAY REPEAT IN 2 HOURS ) SUMAtriptan 2-0 Yes [id number] TAKE 1 [facility] 50 mg 9-06 TABLET BY ity of tablet 00:00: MOUTH [place] 00 NEEDED FOR Medical MIGRAINE Branch HEADACHE ( MAY REPEAT IN 2 HOURS ) SUMAtriptan 2-0 2- No [id number] TAKE 1 [facility] 50 mg 9-06 -22 TABLET BY [facility] tablet 00:00: 00:00 MOUTH [place] 00 :00 NEEDED FOR Medical MIGRAINE Branch HEADACHE ( MAY REPEAT IN 2 HOURS ) SUMAtriptan 2021-0 2021- No [id number] TAKE 1 [facility] 50 mg 9-06 -22 TABLET BY [facility] tablet 00:00: 00:00 MOUTH [place] 00 :00 NEEDED FOR Medical MIGRAINE Branch HEADACHE ( MAY REPEAT IN 2 HOURS ) SUMAtriptan 2021-0 2- No [id number] TAKE 1 [facility] 50 mg 9-06 -22 TABLET BY [facility] tablet 00:00: 00:00 MOUTH [place] 00 :00 NEEDED FOR Medical MIGRAINE Branch HEADACHE ( MAY REPEAT IN 2 HOURS ) topiramate 2022-0 Yes [id number] Take 2 [facility] 25 mg 9-01 tablets by [facility] tablet 00:00: mouth [place] 00 twice Medical daily Branch topiramate 2022-0 Yes [id number] Take 2 [facility] 25 mg 9-01 tablets by [facility] tablet 00:00: mouth [place] 00 twice Medical daily Branch topiramate 2022-0 Yes [id number] Take 2 [facility] 25 mg 9-01 tablets by [facility] tablet 00:00: mouth [place] 00 twice Medical daily Branch topiramate 2022-0 Yes [id number] Take 2 [facility] 25 mg 9-01 tablets by [facility] tablet 00:00: mouth [place] 00 twice Medical daily Branch topiramate 2022-0 Yes [id number] Take 2 [facility] 25 mg 9-01 tablets by [facility] tablet 00:00: mouth [place] 00 twice Medical daily Branch topiramate 2022-0 Yes [id number] Take 2 [facility] 25 mg 9-01 tablets by [facility] tablet 00:00: mouth [place] 00 twice Medical daily Branch topiramate 2022-0 Yes [id number] Take 2 [facility] 25 mg 9-01 tablets by [facility] tablet 00:00: mouth 00 twice Medical daily Branch topiramate 2022-0 Yes [id number] Take 2 [facility] 25 mg 9-01 tablets by [facility] tablet 00:00: mouth 00 twice Medical daily Branch topiramate 2-0 Yes [id number] Take 2 [facility] 25 mg 9-01 tablets by [facility] tablet 00:00: mouth 00 twice Medical daily Branch topiramate 2-0 Yes [id number] Take 2 [facility] 25 mg 9-01 tablets by [facility] tablet 00:00: mouth 00 twice Medical daily Branch topiramate 2-0 Yes [id number] Take 2 [facility] 25 mg 9-01 tablets by [facility] tablet 00:00: mouth 00 twice Medical daily Branch topiramate 2-0 Yes [id number] Take 2 [facility] 25 mg 9-01 tablets by [facility] tablet 00:00: [facility] 00 twice Medical daily Branch topiramate 2-0 Yes [id number] Take 2 [facility] 25 mg 9-01 tablets by [facility] tablet 00:00: mouth 00 twice Medical daily Branch topiramate 2021-0 Yes [id number] Take 2 [facility] 25 mg 9-01 tablets by [facility] tablet 00:00: mouth 00 twice Medical daily Branch topiramate 2021-0 Yes [id number] Take 2 [facility] 25 mg 9-01 tablets by [facility] tablet 00:00: [facility] 00 twice Medical daily Branch topiramate 2022-0 2- No [id number] Take 2 [facility] 25 mg 9-01 09-22 tablets by [facility] tablet 00:00: 00:00 mouth [place] 00 :00 twice Medical daily Branch topiramate 2022-0 2- No [id number] Take 2 [facility] 25 mg 9-01 09-22 tablets by [facility] tablet 00:00: 00:00 mouth [place] 00 :00 twice Medical daily Branch topiramate 2022-0 2- No [id number] Take 2 [facility] 25 mg 9-01 09-22 tablets by [facility] tablet 00:00: 00:00 mouth [place] 00 :00 twice Medical daily Branch methocarbam 2022-0 Yes [id number] 500mg Take 1 [facility] o[facility] 500 mg 8-11 tablet by [facility] o f tablet 00:00: mouth 4 00 (four) Medical times Branch daily as needed for Pain (scale 7-10). methocarbam 2022-0 Yes [id number] 500mg Take 1 [facility] oL 500 mg 8-11 tablet by [facility] o f tablet 00:00: mouth (four) Medical times Branch daily as needed for Pain (scale 7-10). methocarbam 2022-0 Yes [id number] 500mg Take 1 [facility] o[facility] 500 mg 8-11 tablet by [facility] o f tablet 00:00: mouth (four) Medical times Branch daily as needed for Pain (scale 7-10). methocarbam 2022-0 Yes [id number] 500mg Take 1 [facility] o[facility] 500 mg 8-11 tablet by [facility] f tablet 00:00: mouth (four) Medical times Branch daily as needed for Pain (scale 7-10). methocarbam 2022-0 Yes [id number] 500mg Take 1 [facility] o[facility] 500 mg 8-11 tablet by [facility] f tablet 00:00: mouth (four) Medical times Branch daily as needed for Pain (scale 7-10). methocarbam 2-0 Yes [id number] 500mg Take 1 [facility] o[facility] 500 mg 8-11 tablet by [facility] f tablet 00:00: mouth (four) Medical times Branch daily as needed for Pain (scale 7-10). methocarbam 2022-0 Yes [id number] 500mg Take 1 [facility] o[facility] 500 mg 8-11 tablet by [facility] o f tablet 00:00: mouth (four) Medical times Branch daily as needed for Pain (scale 7-10). methocarbam 2022-0 Yes [id number] 500mg Take 1 [facility] oL 500 mg 8-11 tablet by [facility] f tablet 00:00: mouth (four) Medical times Branch daily as needed for Pain (scale 7-10). methocarbam 2022-0 Yes [id number] 500mg Take 1 [facility] oL 500 mg 8-11 tablet by [facility] f tablet 00:00: mouth (four) Medical times Branch daily as needed for Pain (scale 7-10). methocarbam 2022-0 Yes [id number] 500mg Take 1 [facility] oL 500 mg 8-11 tablet by [facility] o f tablet 00:00: mouth (four) Medical times Branch daily as needed for Pain (scale 7-10). methocarbam 2022-0 Yes [id number] 500mg Take 1 [facility] oL 500 mg 8-11 tablet by [facility] f tablet 00:00: mouth (four) Medical times Branch daily as needed for Pain (scale 7-10). methocarbam 2-0 Yes [id number] 500mg Take 1 [facility] o[facility] 500 mg 8-11 tablet by [facility] f tablet 00:00: mouth (four) Medical times Branch daily as needed for Pain (scale 7-10). methocarbam 2022-0 Yes [id number] 500mg Take 1 [facility] o[facility] 500 mg 8-11 tablet by [facility] f tablet 00:00: mouth (four) Medical times Branch daily as needed for Pain (scale 7-10). methocarbam 2-0 Yes [id number] 500mg Take 1 [facility] o[facility] 500 mg 8-11 tablet by [facility] f tablet 00:00: mouth (four) Medical times Branch daily as needed for Pain (scale 7-10). methocarbam 2-0 Yes [id number] 500mg Take 1 [facility] o[facility] 500 mg 8-11 tablet by [facility] f tablet 00:00: mouth (four) Medical times Branch daily as needed for Pain (scale 7-10). methocarbam 2-0 Yes [id number] 500mg Take 1 [facility] o[facility] 500 mg 8-11 tablet by [facility] f tablet 00:00: mouth (four) Medical times Branch daily as needed for Pain (scale 7-10). methocarbam 2-0 Yes [id number] 500mg Take 1 [facility] o[facility] 500 mg 8-11 tablet by [facility] f tablet 00:00: mouth (four) Medical times Branch daily as needed for Pain (scale 7-10). methocarbam 2-0 Yes [id number] 500mg Take 1 [facility] oL 500 mg 8-11 tablet by [facility] f tablet 00:00: mouth (four) Medical times Branch daily as needed for Pain (scale 7-10). methocarbam 2022-0 Yes [id number] 500mg Take 1 [facility] oL 500 mg 8-11 tablet by [facility] f tablet 00:00: mouth (four) Medical times Branch daily as needed for Pain (scale 7-10). methocarbam 2022-0 Yes [id number] 500mg Take 1 [facility] oL 500 mg 8-11 tablet by [facility] f tablet 00:00: mouth (four) Medical times Branch daily as needed for Pain (scale 7-10). methocarbam 2-0 Yes [id number] 500mg Take 1 [facility] o[facility] 500 mg 8-11 tablet by [facility] f tablet 00:00: mouth (four) Medical times Branch daily as needed for Pain (scale 7-10). methocarbam 2-0 Yes [id number] 500mg Take 1 [facility] o[facility] 500 mg 8-11 tablet by [facility] f tablet 00:00: mouth (four) Medical times Branch daily as needed for Pain (scale 7-10). methocarbam 2-0 Yes [id number] 500mg Take 1 [facility] o[facility] 500 mg 8-11 tablet by [facility] o f tablet 00:00: mouth (four) Medical times Branch daily as needed for Pain (scale 7-10). methocarbam 2-0 Yes [id number] 500mg Take 1 [facility] o[facility] 500 mg 8-11 tablet by [facility] o f tablet 00:00: mouth (four) Medical times Branch daily as needed for Pain (scale 7-10). methocarbam 2-0 Yes [id number] 500mg Take 1 [facility] oL 500 mg 8-11 tablet by [facility] f tablet 00:00: mouth (four) Medical times Branch daily as needed for Pain (scale 7-10). methocarbam 2-0 Yes [id number] 500mg Take 1 [facility] o[facility] 500 mg 8-11 tablet by [facility] f tablet 00:00: mouth (four) Medical times Branch daily as needed for Pain (scale 7-10). methocarbam 2-0 Yes [id number] 500mg Take 1 [facility] o[facility] 500 mg 8-11 tablet by [facility] o f tablet 00:00: mouth (four) Medical times Branch daily as needed for Pain (scale 7-10). methocarbam 2-0 Yes [id number] 500mg Take 1 [facility] o[facility] 500 mg 8-11 tablet by [facility] f tablet 00:00: mouth (four) Medical times Branch daily as needed for Pain (scale 7-10). methocarbam 2-0 Yes [id number] 500mg Take 1 [facility] o[facility] 500 mg 8-11 tablet by [facility] f tablet 00:00: mouth (four) Medical times Branch daily as needed for Pain (scale 7-10). methocarbam 2-0 Yes [id number] 500mg Take 1 [facility] o[facility] 500 mg 8-11 tablet by [facility] o f tablet 00:00: mouth (four) Medical times Branch daily as needed for Pain (scale 7-10). methocarbam 2022-0 Yes [id number] 500mg Take 1 [facility] o[facility] 500 mg 8-11 tablet by [facility] f tablet 00:00: mouth (four) Medical times Branch daily as needed for Pain (scale 7-10). methocarbam 2-0 Yes [id number] 500mg Take 1 [facility] o[facility] 500 mg 8-11 tablet by [facility] f tablet 00:00: mouth (four) Medical times Branch daily as needed for Pain (scale 7-10). methocarbam 2-0 Yes [id number] 500mg Take 1 [facility] o[facility] 500 mg 8-11 tablet by [facility] f tablet 00:00: mouth (four) Medical times Branch daily as needed for Pain (scale 7-10). methocarbam 2-0 Yes [id number] 500mg Take 1 [facility] o[facility] 500 mg 8-11 tablet by [facility] f tablet 00:00: mouth (four) Medical times Branch daily as needed for Pain (scale 7-10). methocarbam 2-0 Yes [id number] 500mg Take 1 [facility] o[facility] 500 mg 8-11 tablet by [facility] f tablet 00:00: mouth (four) Medical times Branch daily as needed for Pain (scale 7-10). methocarbam 2-0 Yes [id number] 500mg Take 1 [facility] oL 500 mg 8-11 tablet by [facility] f tablet 00:00: mouth (four) Medical times Branch daily as needed for Pain (scale 7-10). methocarbam 2022-0 Yes [id number] 500mg Take 1 [facility] oL 500 mg 8-11 tablet by [facility] o f tablet 00:00: mouth (four) Medical times Branch daily as needed for Pain (scale 7-10). methocarbam 2022-0 Yes [id number] 500mg Take 1 [facility] oL 500 mg 8-11 tablet by [facility] o f tablet 00:00: mouth (four) Medical times Branch daily as needed for Pain (scale 7-10). LOSARTAN 50 2021-0 Yes [id number] Take 1 [facility] mg tablet 7-20 tablet by ity o f 00:00: mouth twice Medical daily Branch DILTIAZEM 2021-0 Yes [id number] Take 1 [facility] [place] 120 mg 24 7-20 capsule by [facility] hr capsule 00:00: mouth twice Medical daily Branch LOSARTAN 50 2021-0 Yes [id number] Take 1 [facility] mg tablet 7-20 tablet by ity o f 00:00: mouth twice Medical daily Branch DILTIAZEM 2021-0 Yes [id number] Take 1 [facility] [place] 120 mg 24 7-20 capsule by [facility] of hr capsule 00:00: mouth twice Medical daily Branch LOSARTAN 50 2021-0 Yes [id number] Take 1 [facility] mg tablet 7-20 tablet by [facility] o f 00:00: mouth twice Medical daily Branch DILTIAZEM 2021-0 Yes [id number] Take 1 [facility] [place] 120 mg 24 7-20 capsule by [facility] of hr capsule 00:00: mouth twice Medical daily Branch LOSARTAN 50 2021-0 Yes [id number] Take 1 [facility] mg tablet 7-20 tablet by ity o f 00:00: mouth twice Medical daily Branch DILTIAZEM 2021-0 Yes [id number] Take 1 [facility] [place] 120 mg 24 7-20 capsule by [facility] hr capsule 00:00: mouth twice Medical daily Branch LOSARTAN 50 2021-0 Yes [id number] Take 1 [facility] mg tablet 7-20 tablet by ity o f 00:00: mouth twice Medical daily Branch DILTIAZEM 2021-0 Yes [id number] Take 1 [facility] [place] 120 mg 24 7-20 capsule by [facility] hr capsule 00:00: mouth twice Medical daily Branch LOSARTAN 50 2021-0 Yes [id number] Take 1 [facility] mg tablet 7-20 tablet by ity o f 00:00: mouth twice Medical daily Branch DILTIAZEM 2021-0 Yes [id number] Take 1 [facility] [place] 120 mg 24 7-20 capsule by [facility] of hr capsule 00:00: mouth twice Medical daily Branch LOSARTAN 50 2021-0 Yes [id number] Take 1 [facility] mg tablet 7-20 tablet by ity o f 00:00: mouth twice Medical daily Branch DILTIAZEM 2021-0 Yes [id number] Take 1 [facility] [place] 120 mg 24 7-20 capsule by [facility] of hr capsule 00:00: mouth twice Medical daily Branch LOSARTAN 50 2021-0 Yes [id number] Take 1 [facility] mg tablet 7-20 tablet by ity o f 00:00: mouth twice Medical daily Branch DILTIAZEM 2021-0 Yes [id number] Take 1 [facility] [place] 120 mg 24 7-20 capsule by [facility] of hr capsule 00:00: mouth twice Medical daily Branch LOSARTAN 50 2021-0 Yes [id number] Take 1 [facility] mg tablet 7-20 tablet by ity o f 00:00: mouth twice Medical daily Branch DILTIAZEM 2021-0 Yes [id number] Take 1 [facility] [place] 120 mg 24 7-20 capsule by [facility] of hr capsule 00:00: mouth twice Medical daily Branch LOSARTAN 50 2021-0 Yes [id number] Take 1 [facility] mg tablet 7-20 tablet by ity o f 00:00: mouth twice Medical daily Branch DILTIAZEM 2021-0 Yes [id number] Take 1 [facility] [place] 120 mg 24 7-20 capsule by [facility] of hr capsule 00:00: mouth twice Medical daily Branch LOSARTAN 50 2021-0 Yes [id number] Take 1 [facility] mg tablet 7-20 tablet by ity o f 00:00: mouth twice Medical daily Branch DILTIAZEM 2021-0 Yes [id number] Take 1 [facility] [place] 120 mg 24 7-20 capsule by [facility] of hr capsule 00:00: mouth twice Medical daily Branch LOSARTAN 50 2021-0 Yes [id number] Take 1 [facility] mg tablet 7-20 tablet by ity o f 00:00: mouth twice Medical daily Branch DILTIAZEM 2021-0 Yes [id number] Take 1 [facility] [place] 120 mg 24 7-20 capsule by [facility] of hr capsule 00:00: mouth twice Medical daily Branch LOSARTAN 50 2021-0 Yes [id number] Take 1 [facility] mg tablet 7-20 tablet by ity o f 00:00: mouth twice Medical daily Branch DILTIAZEM 2022-0 Yes [id number] Take 1 [facility] [place] 120 mg 24 7-20 capsule by [facility] of hr capsule 00:00: mouth twice Medical daily Branch LOSARTAN 50 2021-0 Yes [id number] Take 1 [facility] mg tablet 7-20 tablet by ity o f 00:00: mouth twice Medical daily Branch DILTIAZEM 2021-0 Yes [id number] Take 1 [facility] [place] 120 mg 24 7-20 capsule by [facility] of hr capsule 00:00: mouth twice Medical daily Branch LOSARTAN 50 2021-0 Yes [id number] Take 1 [facility] mg tablet 7-20 tablet by ity o f 00:00: mouth twice Medical daily Branch DILTIAZEM 2021-0 Yes [id number] Take 1 [facility] [place] 120 mg 24 7-20 capsule by [facility] of hr capsule 00:00: mouth twice Medical daily Branch LOSARTAN 50 2021-0 Yes [id number] Take 1 [facility] mg tablet 7-20 tablet by ity o f 00:00: mouth twice Medical daily Branch DILTIAZEM 2021-0 Yes [id number] Take 1 [facility] [place] 120 mg 24 7-20 capsule by [facility] of hr capsule 00:00: mouth twice Medical daily Branch LOSARTAN 50 2021-0 Yes [id number] Take 1 [facility] mg tablet 7-20 tablet by ity o f 00:00: mouth twice Medical daily Branch DILTIAZEM 2021-0 Yes [id number] Take 1 [facility] [place] 120 mg 24 7-20 capsule by [facility] of hr capsule 00:00: mouth twice Medical daily Branch LOSARTAN 50 2021-0 Yes [id number] Take 1 [facility] mg tablet 7-20 tablet by ity o f 00:00: mouth twice Medical daily Branch DILTIAZEM 2021-0 Yes [id number] Take 1 [facility] [place] 120 mg 24 7-20 capsule by [facility] of hr capsule 00:00: mouth twice Medical daily Branch LOSARTAN 50 2021-0 Yes [id number] Take 1 [facility] mg tablet 7-20 tablet by ity o f 00:00: mouth twice Medical daily Branch DILTIAZEM 2021-0 Yes [id number] Take 1 [facility] [place] 120 mg 24 7-20 capsule by [facility] of hr capsule 00:00: mouth twice Medical daily Branch LOSARTAN 50 2021-0 Yes [id number] Take 1 [facility] mg tablet 7-20 tablet by ity o f 00:00: mouth twice Medical daily Branch DILTIAZEM 2-0 Yes [id number] Take 1 [facility] [place] 120 mg 24 7-20 capsule by [facility] of hr capsule 00:00: mouth twice Medical daily Branch LOSARTAN 50 2021-0 Yes [id number] Take 1 [facility] mg tablet 7-20 tablet by ity o f 00:00: mouth twice Medical daily Branch DILTIAZEM 2021-0 Yes [id number] Take 1 [facility] [place] 120 mg 24 7-20 capsule by [facility] of hr capsule 00:00: mouth twice Medical daily Branch LOSARTAN 50 2021-0 Yes [id number] Take 1 [facility] mg tablet 7-20 tablet by ity o f 00:00: mouth twice Medical daily Branch DILTIAZEM 2021-0 Yes [id number] Take 1 [facility] [place] 120 mg 24 7-20 capsule by [facility] of hr capsule 00:00: mouth twice Medical daily Branch LOSARTAN 50 2021-0 Yes [id number] Take 1 [facility] mg tablet 7-20 tablet by [facility] o f 00:00: mouth twice Medical daily Branch DILTIAZEM 2021-0 Yes [id number] Take 1 [facility] [place] 120 mg 24 7-20 capsule by [facility] of hr capsule 00:00: mouth twice Medical daily Branch LOSARTAN 50 2021-0 Yes [id number] Take 1 [facility] mg tablet 7-20 tablet by [facility]y o f 00:00: mouth twice Medical daily Branch DILTIAZEM 2021-0 Yes [id number] Take 1 [facility] [place] 120 mg 24 7-20 capsule by [facility] of hr capsule 00:00: mouth twice Medical daily Branch LOSARTAN 50 2-0 Yes [id number] Take 1 [facility] mg tablet 7-20 tablet by [facility] o f 00:00: mouth twice Medical daily Branch DILTIAZEM 2-0 Yes [id number] Take 1 [facility] [place] 120 mg 24 7-20 capsule by [facility] of hr capsule 00:00: mouth twice Medical daily Branch LOSARTAN 50 2021-0 Yes [id number] Take 1 [facility] mg tablet 7-20 tablet by [facility] o f 00:00: mouth twice Medical daily Branch DILTIAZEM 2021-0 Yes [id number] Take 1 [facility] [place] 120 mg 24 7-20 capsule by [facility] hr capsule 00:00: mouth twice Medical daily Branch LOSARTAN 50 2021-0 Yes [id number] Take 1 [facility] mg tablet 7-20 tablet by [facility]y o f 00:00: mouth twice Medical daily Branch DILTIAZEM 2021-0 Yes [id number] Take 1 [facility] [place] 120 mg 24 7-20 capsule by [facility] hr capsule 00:00: mouth twice Medical daily Branch LOSARTAN 50 2021-0 Yes [id number] Take 1 [facility] mg tablet 7-20 tablet by [facility]y o f 00:00: mouth twice Medical daily Branch DILTIAZEM 2021-0 Yes [id number] Take 1 [facility] [place] 120 mg 24 7-20 capsule by [facility] hr capsule 00:00: mouth twice Medical daily Branch LOSARTAN 50 2021-0 Yes [id number] Take 1 [facility] mg tablet 7-20 tablet by [facility] o f 00:00: mouth twice Medical daily Branch DILTIAZEM 2021-0 Yes [id number] Take 1 [facility] [place] 120 mg 24 7-20 capsule by [facility] hr capsule 00:00: mouth twice Medical daily Branch LOSARTAN 50 2021-0 Yes [id number] Take 1 [facility] mg tablet 7-20 tablet by [facility] o f 00:00: mouth twice Medical daily Branch DILTIAZEM 2021-0 Yes [id number] Take 1 [facility] [place] 120 mg 24 7-20 capsule by [facility] hr capsule 00:00: mouth twice Medical daily Branch LOSARTAN 50 2021-0 Yes [id number] Take 1 [facility] mg tablet 7-20 tablet by [facility] o f 00:00: mouth twice Medical daily Branch DILTIAZEM 2021-0 Yes [id number] Take 1 [facility] [place] 120 mg 24 7-20 capsule by [facility] hr capsule 00:00: mouth twice Medical daily Branch LOSARTAN 50 2021-0 Yes [id number] Take 1 [facility] mg tablet 7-20 tablet by [facility] o f 00:00: mouth twice Medical daily Branch DILTIAZEM 2021-0 Yes [id number] Take 1 [facility] [place] 120 mg 24 7-20 capsule by [facility] of hr capsule 00:00: mouth twice Medical daily Branch LOSARTAN 50 2021-0 2022- No [id number] Take 1 [facility] mg tablet 7-20 10-13 tablet by [facility] of 00:00: 00:00 mouth [place] 00 :00 twice Medical daily Branch DILTIAZEM 2021-0 2021- No [id number] Take 1 [facility] 120 mg 24 7-20 10-13 capsule by [facility] hr capsule 00:00: 00:00 mouth [place] 00 :00 twice Medical daily Branch methocarbam 2021-0 Yes [id number] 500mg Take 1 [facility] oL 500 mg 7-02 tablet by [facility] o f tablet 00:00: mouth [place] 00 (four) Medical times Branch daily. methocarbam 2021-0 Yes [id number] 500mg Take 1 [facility] oL 500 mg 7-02 tablet by [facility] o f tablet 00:00: mouth [place] 00 (four) Medical times Branch daily. methocarbam 2021-0 Yes [id number] 500mg Take 1 [facility] oL 500 mg 7-02 tablet by [facility] o f tablet 00:00: mouth [place] (four) Medical times Branch daily. methocarbam 2021-0 Yes [id number] 500mg Take 1 [facility] oL 500 mg 7-02 tablet by [facility] o f tablet 00:00: mouth [address] [place] [address] (four) Medical times Branch daily. methocarbam 2021-0 Yes [id number] 500mg Take 1 [facility] oL 500 mg 7-02 tablet by [facility] o f tablet 00:00: [address] (four) Medical times Branch daily. methocarbam 2021-0 2021- No [id number] 500mg Take 1 [facility] oL 500 mg 7-02 08-11 tablet by [facility] of tablet 00:00: 00:[address] [place] [address] 00 :00 (four) Medical times Branch daily. SUMATRIPTAN 2021-0 Yes [id number] TAKE 1 [facility] 50 mg 6-17 TABLET BY [facility] tablet 00:00: MOUTH [place] 00 NEEDED FOR Medical MIGRAINE Branch HEADACHE (MAY REPEAT IN TWO HOURS) SUMATRIPTAN 2021-0 Yes [id number] TAKE 1 [facility] 50 mg 6-17 TABLET BY [facility] tablet 00:00: MOUTH [place] 00 NEEDED FOR Medical MIGRAINE Branch HEADACHE (MAY REPEAT IN TWO HOURS) SUMATRIPTAN 2021-0 Yes [id number] TAKE 1 [facility] 50 mg 6-17 TABLET BY [facility] tablet 00:00: MOUTH [place] 00 NEEDED FOR Medical MIGRAINE Branch HEADACHE (MAY REPEAT IN TWO HOURS) SUMATRIPTAN 2021-0 Yes [id number] TAKE 1 [facility] 50 mg 6-17 TABLET BY [facility] tablet 00:00: MOUTH [place] 00 NEEDED FOR Medical MIGRAINE Branch HEADACHE (MAY REPEAT IN TWO HOURS) SUMATRIPTAN 2022-0 Yes [id number] TAKE 1 [facility] 50 mg 6-17 TABLET BY [facility] of tablet 00:00: MOUTH [place] 00 NEEDED FOR Medical MIGRAINE Branch HEADACHE (MAY REPEAT IN TWO HOURS) SUMATRIPTAN 2022-0 Yes [id number] TAKE 1 [facility] 50 mg 6-17 TABLET BY [facility] of tablet 00:00: MOUTH [place] 00 NEEDED FOR Medical MIGRAINE Branch HEADACHE (MAY REPEAT IN TWO HOURS) SUMATRIPTAN 2022-0 Yes [id number] TAKE 1 [facility] 50 mg 6-17 TABLET BY [facility] tablet 00:00: MOUTH [place] 00 NEEDED FOR Medical MIGRAINE Branch HEADACHE (MAY REPEAT IN TWO HOURS) SUMATRIPTAN 2022-0 Yes [id number] TAKE 1 [facility] 50 mg 6-17 TABLET BY [facility] tablet 00:00: MOUTH [place] 00 NEEDED FOR Medical MIGRAINE Branch HEADACHE (MAY REPEAT IN TWO HOURS) SUMATRIPTAN 2022-0 Yes [id number] TAKE 1 [facility] 50 mg 6-17 TABLET BY [facility] tablet 00:00: MOUTH [place] 00 NEEDED FOR Medical MIGRAINE Branch HEADACHE (MAY REPEAT IN TWO HOURS) SUMATRIPTAN 2-0 Yes [id number] TAKE 1 [facility] 50 mg 6-17 TABLET BY [facility] of tablet 00:00: MOUTH [place] 00 NEEDED FOR Medical MIGRAINE Branch HEADACHE (MAY REPEAT IN TWO HOURS) SUMATRIPTAN 2022-0 Yes [id number] TAKE 1 [facility] 50 mg 6-17 TABLET BY [facility] of tablet 00:00: MOUTH [place] 00 NEEDED FOR Medical MIGRAINE Branch HEADACHE (MAY REPEAT IN TWO HOURS) SUMATRIPTAN 2022-0 Yes [id number] TAKE 1 [facility] 50 mg 6-17 TABLET BY [facility] tablet 00:00: MOUTH [place] 00 NEEDED FOR Medical MIGRAINE Branch HEADACHE (MAY REPEAT IN TWO HOURS) SUMATRIPTAN 2022-0 Yes [id number] TAKE 1 [facility] 50 mg 6-17 TABLET BY [facility] tablet 00:00: MOUTH [place] 00 NEEDED FOR Medical MIGRAINE Branch HEADACHE (MAY REPEAT IN TWO HOURS) SUMATRIPTAN 2022-0 Yes [id number] TAKE 1 [facility] 50 mg 6-17 TABLET BY [facility] of tablet 00:00: MOUTH [place] 00 NEEDED FOR Medical MIGRAINE Branch HEADACHE (MAY REPEAT IN TWO HOURS) SUMATRIPTAN 2021-0 Yes [id number] TAKE 1 [facility] 50 mg 6-17 TABLET BY [facility] of tablet 00:00: MOUTH [place] 00 NEEDED FOR Medical MIGRAINE Branch HEADACHE (MAY REPEAT IN TWO HOURS) SUMATRIPTAN 2021-0 Yes [id number] TAKE 1 [facility] 50 mg 6-17 TABLET BY [facility] of tablet 00:00: MOUTH [place] 00 NEEDED FOR Medical MIGRAINE Branch HEADACHE (MAY REPEAT IN TWO HOURS) SUMATRIPTAN 2021-0 Yes [id number] TAKE 1 [facility] 50 mg 6-17 TABLET BY [facility] of tablet 00:00: MOUTH [place] 00 NEEDED FOR Medical MIGRAINE Branch HEADACHE (MAY REPEAT IN TWO HOURS) SUMATRIPTAN 2021-0 2021- No [id number] TAKE 1 [facility] 50 mg 6-17 09-06 TABLET BY [facility] tablet 00:00: 00:00 MOUTH [place] 00 :00 NEEDED FOR Medical MIGRAINE Branch HEADACHE (MAY REPEAT IN TWO HOURS) SUMATRIPTAN 2021-0 2- No [id number] TAKE 1 [facility] 50 mg 6-17 09-06 TABLET BY [facility] of tablet 00:00: 00:00 MOUTH [place] 00 :00 NEEDED FOR Medical MIGRAINE Branch HEADACHE (MAY REPEAT IN TWO HOURS) fexofenadin 2021-0 Yes [id number] 180mg Take 1 [facility] e (LIUS 6-13 tablet by [facility] ALLERGY) 00:00: mouth [place] 180 mg 00 daily. Medical tablet Branch fexofenadin 2021-0 Yes [id number] 180mg Take 1 [facility] e (LUIS 6-13 tablet by [facility] of ALLERGY) 00:00: mouth [place] 180 mg 00 daily. Medical tablet Branch fexofenadin 2021-0 Yes [id number] 180mg Take 1 [facility] e (LUIS 6-13 tablet by [facility] of ALLERGY) 00:00: mouth [place] 180 mg 00 daily. Medical tablet Branch fexofenadin 2021-0 Yes [id number] 180mg Take 1 [facility] e (LUIS 6-13 tablet by [facility] of ALLERGY) 00:00: mouth [place] 180 mg 00 daily. Medical tablet Branch fexofenadin 2021-0 Yes [id number] 180mg Take 1 [facility] e (LUIS 6-13 tablet by [facility] of ALLERGY) 00:00: mouth [place] 180 mg 00 daily. Medical tablet Branch fexofenadin 0 Yes [id number] 180mg Take 1 [facility] e (LUIS 6-13 tablet by [facility] of ALLERGY) 00:00: mouth [place] 180 mg 00 daily. Medical tablet Branch fexofenadin 0 Yes [id number] 180mg Take 1 [facility] e (LUIS 6-13 tablet by [facility] of ALLERGY) 00:00: mouth [place] 180 mg 00 daily. Medical tablet Branch fexofenadin 0 Yes [id number] 180mg Take 1 [facility] e (LUIS 6-13 tablet by [facility] of ALLERGY) 00:00: mouth [place] 180 mg 00 daily. Medical tablet Branch fexofenadin Yes [id number] 180mg Take 1 [facility] e (LUIS 6-13 tablet by [facility] of ALLERGY) 00:00: mouth [place] 180 mg 00 daily. Medical tablet Branch fexofenadin Yes [id number] 180mg Take 1 [facility] e (LUIS 6-13 tablet by [facility] of ALLERGY) 00:00: mouth [place] 180 mg 00 daily. Medical tablet Branch fexofenadin Yes [id number] 180mg Take 1 [facility] e (LUIS 6-13 tablet by [facility] of ALLERGY) 00:00: mouth [place] 180 mg 00 daily. Medical tablet Branch fexofenadin Yes [id number] 180mg Take 1 [facility] e (LUIS 6-13 tablet by [facility] of ALLERGY) 00:00: mouth [place] 180 mg 00 daily. Medical tablet Branch fexofenadin 0 Yes [id number] 180mg Take 1 [facility] (LUIS 6-13 tablet by ity of ALLERGY) 00:00: mouth [place] 180 mg 00 daily. Medical tablet Branch fexofenadin 0 Yes [id number] 180mg Take 1 [facility] (LUIS 6-13 tablet by ity of ALLERGY) 00:00: mouth [place] 180 mg 00 daily. Medical tablet Branch fexofenadin 0 Yes [id number] 180mg Take 1 [facility] (LUIS 6-13 tablet by ity of ALLERGY) 00:00: mouth [place] 180 mg 00 daily. Medical tablet Branch fexofenadin 0 Yes [id number] 180mg Take 1 [facility] (LUIS 6-13 tablet by ity of ALLERGY) 00:00: mouth [place] 180 mg 00 daily. Medical tablet Branch fexofenadin Yes [id number] 180mg Take 1 [facility] (LUIS 6-13 tablet by ity of ALLERGY) 00:00: mouth [place] 180 mg 00 daily. Medical tablet Branch fexofenadin Yes [id number] 180mg Take 1 [facility] (LUIS 6-13 tablet by ity of ALLERGY) 00:00: mouth [place] 180 mg 00 daily. Medical tablet Branch fexofenadin Yes [id number] 180mg Take 1 [facility] (LUIS 6-13 tablet by ity of ALLERGY) 00:00: mouth [place] 180 mg 00 daily. Medical tablet Branch fexofenadin Yes [id number] 180mg Take 1 [facility] e (LUIS 6-13 tablet by ity of ALLERGY) 00:00: mouth [place] 180 mg 00 daily. Medical tablet Branch fexofenadin Yes [id number] 180mg Take 1 [facility] (LUIS 6-13 tablet by ity of ALLERGY) 00:00: mouth [place] 180 mg 00 daily. Medical tablet Branch fexofenadin Yes [id number] 180mg Take 1 [facility] (LUIS 6-13 tablet by ity of ALLERGY) 00:00: mouth [place] 180 mg 00 daily. Medical tablet Branch fexofenadin Yes [id number] 180mg Take 1 [facility] (LUIS 6-13 tablet by ity of ALLERGY) 00:00: mouth [place] 180 mg 00 daily. Medical tablet Branch fexofenadin Yes [id number] 180mg Take 1 [facility] (LUIS 6-13 tablet by ity of ALLERGY) 00:00: mouth [place] 180 mg 00 daily. Medical tablet Branch fexofenadin Yes [id number] 180mg Take 1 [facility] (LUIS 6-13 tablet by ity of ALLERGY) 00:00: mouth [place] 180 mg 00 daily. Medical tablet Branch fexofenadin Yes [id number] 180mg Take 1 [facility] (LUIS 6-13 tablet by ity of ALLERGY) 00:00: mouth [place] 180 mg 00 daily. Medical tablet Branch fexofenadin Yes [id number] 180mg Take 1 [facility] (LUIS 6-13 tablet by ity of ALLERGY) 00:00: mouth [place] 180 mg 00 daily. Medical tablet Branch fexofenadin Yes [id number] 180mg Take 1 [facility] (LUIS 6-13 tablet by ity of ALLERGY) 00:00: mouth [place] 180 mg 00 daily. Medical tablet Branch fexofenadin Yes [id number] 180mg Take 1 [facility] (LUIS 6-13 tablet by ity of ALLERGY) 00:00: mouth [place] 180 mg 00 daily. Medical tablet Branch fexofenadin Yes [id number] 180mg Take 1 [facility] (LUIS 6-13 tablet by ity of ALLERGY) 00:00: mouth [place] 180 mg 00 daily. Medical tablet Branch fexofenadin Yes [id number] 180mg Take 1 [facility] (LUIS 6-13 tablet by ity of ALLERGY) 00:00: mouth [place] 180 mg 00 daily. Medical tablet Branch fexofenadin Yes [id number] 180mg Take 1 [facility] (LUIS 6-13 tablet by ity of ALLERGY) 00:00: mouth [place] 180 mg 00 daily. Medical tablet Branch fexofenadin Yes [id number] 180mg Take 1 [facility] (LUIS 6-13 tablet by ity of ALLERGY) 00:00: mouth [place] 180 mg 00 daily. Medical tablet Branch fexofenadin Yes [id number] 180mg Take 1 [facility] (LUIS 6-13 tablet by ity of ALLERGY) 00:00: mouth [place] 180 mg 00 daily. Medical tablet Branch fexofenadin Yes [id number] 180mg Take 1 [facility] (LUIS 6-13 tablet by ity of ALLERGY) 00:00: mouth [place] 180 mg 00 daily. Medical tablet Branch fexofenadin Yes [id number] 180mg Take 1 [facility] (LUIS 6-13 tablet by ity of ALLERGY) 00:00: mouth [place] 180 mg 00 daily. Medical tablet Branch fexofenadin Yes [id number] 180mg Take 1 [facility] (LUIS 6-13 tablet by ity of ALLERGY) 00:00: mouth [place] 180 mg 00 daily. Medical tablet Branch fexofenadin 2022-0 Yes [id number] 180mg Take 1 [facility] (LUIS 6-13 tablet by ity of ALLERGY) 00:00: mouth [place] 180 mg 00 daily. Medical tablet Branch fexofenadin 0 Yes [id number] 180mg Take 1 [facility] (LUIS 6-13 tablet by ity of ALLERGY) 00:00: mouth [place] 180 mg 00 daily. Medical tablet Branch fexofenadin 0 Yes [id number] 180mg Take 1 [facility] (LUIS 6-13 tablet by ity of ALLERGY) 00:00: mouth [place] 180 mg 00 daily. Medical tablet Branch fexofenadin Yes [id number] 180mg Take 1 [facility] (LUIS 6-13 tablet by ity of ALLERGY) 00:00: mouth [place] 180 mg 00 daily. Medical tablet Branch fexofenadin Yes [id number] 180mg Take 1 [facility] (LUIS 6-13 tablet by ity of ALLERGY) 00:00: mouth [place] 180 mg 00 daily. Medical tablet Branch fexofenadin Yes [id number] 180mg Take 1 [facility] (LUIS 6-13 tablet by ity of ALLERGY) 00:00: mouth [place] 180 mg 00 daily. Medical tablet Branch fexofenadin Yes [id number] 180mg Take 1 [facility] (LUIS 6-13 tablet by ity of ALLERGY) 00:00: mouth [place] 180 mg 00 daily. Medical tablet Branch fexofenadin Yes [id number] 180mg Take 1 [facility] (LUIS 6-13 tablet by ity of ALLERGY) 00:00: mouth [place] 180 mg 00 daily. Medical tablet Branch fexofenadin 0 Yes [id number] 180mg Take 1 [facility] (LUIS 6-13 tablet by ity of ALLERGY) 00:00: mouth [place] 180 mg 00 daily. Medical tablet Branch fexofenadin 2021-0 Yes [id number] 180mg Take 1 [facility] (LUIS 6-13 tablet by ity of ALLERGY) 00:00: mouth [place] 180 mg 00 daily. Medical tablet Branch fexofenadin Yes [id number] 180mg Take 1 [facility] (LUIS 6-13 tablet by ity of ALLERGY) 00:00: mouth [place] 180 mg 00 daily. Medical tablet Branch fexofenadin Yes [id number] 180mg Take 1 [facility] (LUIS 6-13 tablet by ity of ALLERGY) 00:00: mouth [place] 180 mg 00 daily. Medical tablet Branch fexofenadin Yes [id number] 180mg Take 1 [facility] (LUIS 6-13 tablet by ity of ALLERGY) 00:00: mouth [place] 180 mg 00 daily. Medical tablet Branch rosuvastati Yes [id number] 10mg Take 1 [facility] n 10 mg 6-08 tablet by ity of tablet 00:00: mouth at [place] 00 bedtime. Medical Branch rosuvastati Yes [id number] 10mg Take 1 [facility] n 10 mg 6-08 tablet by ity of tablet 00:00: mouth at [place] 00 bedtime. Medical Branch rosuvastati Yes [id number] 10mg Take 1 [facility] n 10 mg 6-08 tablet by ity of tablet 00:00: mouth at [place] bedtime. Medical Branch rosuvastati Yes [id number] 10mg Take 1 [facility] n 10 mg 6-08 tablet by ity of tablet 00:00: mouth at [place] 00 bedtime. Medical Branch rosuvastati Yes [id number] 10mg Take 1 [facility] n 10 mg 6-08 tablet by ity of tablet 00:00: mouth at [place] bedtime. Medical Branch rosuvastati Yes [id number] 10mg Take 1 [facility] n 10 mg 6-08 tablet by ity of tablet 00:00: mouth at [place] bedtime. Medical Branch rosuvastati 2021- Yes [id number] 10mg Take 1 [facility] n 10 mg 6-08 tablet by ity of tablet 00:00: mouth at [place] 00 bedtime. Medical Branch rosuvastati Yes [id number] 10mg Take 1 [facility] n 10 mg 6-08 tablet by ity of tablet 00:00: mouth at [place] 00 bedtime. Medical Branch rosuvastati Yes [id number] 10mg Take 1 [facility] n 10 mg 6-08 tablet by ity of tablet 00:00: mouth at [place] 00 bedtime. Medical Branch rosuvastati Yes [id number] 10mg Take 1 [facility] n 10 mg 6-08 tablet by ity of tablet 00:00: mouth at [place] 00 bedtime. Medical Branch rosuvastati 2021- Yes [id number] 10mg Take 1 [facility] n 10 mg 6-08 tablet by ity of tablet 00:00: mouth at [place] 00 bedtime. Medical Branch rosuvastati 2021-0 Yes [id number] 10mg Take 1 [facility] n 10 mg 6-08 tablet by ity of tablet 00:00: mouth at [place] [address] bedtime. Medical Branch rosuvastati 2021-0 Yes [id number] 10mg Take 1 [facility] n 10 mg 6-08 tablet by ity of tablet 00:00: mouth at [place] [address] bedtime. Medical Branch rosuvastati 2021-0 Yes [id number] 10mg Take 1 [facility] n 10 mg 6-08 tablet by ity of tablet 00:00: mouth at [place] [address] bedtime. Medical Branch rosuvastati 2021- Yes [id number] 10mg Take 1 [facility] n 10 mg 6-08 tablet by ity of tablet 00:00: mouth at [place] [address] bedtime. Medical Branch rosuvastati 2021-0 Yes [id number] 10mg Take 1 [facility] n 10 mg 6-08 tablet by ity of tablet 00:00: mouth at [place] [address] bedtime. Medical Branch rosuvastati 2021- Yes [id number] 10mg Take 1 [facility] n 10 mg 6-08 tablet by ity of tablet 00:00: mouth at [place] [address] bedtime. Medical Branch rosuvastati Yes [id number] 10mg Take 1 [facility] n 10 mg 6-08 tablet by ity of tablet 00:00: mouth at [place] [address] bedtime. Medical Branch rosuvastati 2021-0 Yes [id number] 10mg Take 1 [facility] n 10 mg 6-08 tablet by ity of tablet 00:00: mouth at [place] [address] bedtime. Medical Branch rosuvastati 2021-0 Yes [id number] 10mg Take 1 [facility] n 10 mg 6-08 tablet by ity of tablet 00:00: mouth at [place] [address] bedtime. Medical Branch rosuvastati 2021-0 Yes [id number] 10mg Take 1 [facility] n 10 mg 6-08 tablet by ity of tablet 00:00: mouth at [place] [address] bedtime. Medical Branch rosuvastati 2021-0 Yes [id number] 10mg Take 1 [facility] n 10 mg 6-08 tablet by ity of tablet 00:00: mouth at [place] [address] bedtime. Medical Branch rosuvastati 2021-0 Yes [id number] 10mg Take 1 [facility] n 10 mg 6-08 tablet by ity of tablet 00:00: mouth at [place] bedtime. Medical Branch rosuvastati 2021-0 Yes [id number] 10mg Take 1 [facility] n 10 mg 6-08 tablet by ity of tablet 00:00: mouth at [place] bedtime. Medical Branch rosuvastati 2021-0 Yes [id number] 10mg Take 1 [facility] n 10 mg 6-08 tablet by ity of tablet 00:00: mouth at [place] bedtime. Medical Branch rosuvastati 2021-0 Yes [id number] 10mg Take 1 [facility] n 10 mg 6-08 tablet by ity of tablet 00:00: mouth at [place] bedtime. Medical Branch rosuvastati 2021-0 Yes [id number] 10mg Take 1 [facility] n 10 mg 6-08 tablet by ity of tablet 00:00: mouth at [place] bedtime. Medical Branch rosuvastati 2021-0 Yes [id number] 10mg Take 1 [facility] n 10 mg 6-08 tablet by ity of tablet 00:00: mouth at [place] bedtime. Medical Branch rosuvastati 2021-0 Yes [id number] 10mg Take 1 [facility] n 10 mg 6-08 tablet by ity of tablet 00:00: mouth at [place] [address] bedtime. Medical Branch rosuvastati Yes [id number] 10mg Take 1 [facility] n 10 mg 6-08 tablet by ity of tablet 00:00: mouth at [place] [address] bedtime. Medical Branch rosuvastati 2021-0 Yes [id number] 10mg Take 1 [facility] n 10 mg 6-08 tablet by ity of tablet 00:00: mouth at [place] [address] bedtime. Medical Branch rosuvastati 2021-0 Yes [id number] 10mg Take 1 [facility] n 10 mg 6-08 tablet by ity of tablet 00:00: mouth at [place] [address] bedtime. Medical Branch rosuvastati 2021-0 Yes [id number] 10mg Take 1 [facility] n 10 mg 6-08 tablet by ity of tablet 00:00: mouth at [place] [address] bedtime. Medical Branch rosuvastati 2021-0 Yes [id number] 10mg Take 1 [facility] n 10 mg 6-08 tablet by ity of tablet 00:00: mouth at [place] [address] bedtime. Medical Branch rosuvastati Yes [id number] 10mg Take 1 [facility] n 10 mg 6-08 tablet by ity of tablet 00:00: mouth at [place] bedtime. Medical Branch rosuvastati Yes [id number] 10mg Take 1 [facility] n 10 mg 6-08 tablet by ity of tablet 00:00: mouth at [place] [address] bedtime. Medical Branch rosuvastati 0 Yes [id number] 10mg Take 1 [facility] n 10 mg 6-08 tablet by ity of tablet 00:00: mouth at [place] bedtime. Medical Branch rosuvastati Yes [id number] 10mg Take 1 [facility] n 10 mg 6-08 tablet by ity of tablet 00:00: mouth at [place] bedtime. Medical Branch rosuvastati Yes [id number] 10mg Take 1 [facility] n 10 mg 6-08 tablet by ity of tablet 00:00: mouth at [place] [address] bedtime. Medical Branch rosuvastati Yes [id number] 10mg Take 1 [facility] n 10 mg 6-08 tablet by ity of tablet 00:00: mouth at [place] [address] bedtime. Medical Branch rosuvastati 0 Yes [id number] 10mg Take 1 [facility] n 10 mg 6-08 tablet by ity of tablet 00:00: mouth at [place] [address] bedtime. Medical Branch rosuvastati Yes [id number] 10mg Take 1 [facility] n 10 mg 6-08 tablet by ity of tablet 00:00: mouth at [place] [address] bedtime. Medical Branch rosuvastati 0 Yes [id number] 10mg Take 1 [facility] n 10 mg 6-08 tablet by ity of tablet 00:00: mouth at [place] [address] bedtime. Medical Branch rosuvastati 0 Yes [id number] 10mg Take 1 [facility] n 10 mg 6-08 tablet by ity of tablet 00:00: mouth at [place] [address] bedtime. Medical Branch rosuvastati 0 Yes [id number] 10mg Take 1 [facility] n 10 mg 6-08 tablet by ity of tablet 00:00: mouth at [place] [address] bedtime. Medical Branch rosuvastati 2021-0 2- No [id number] 10mg Take 1 [facility] n 10 mg 6-08 10-13 tablet by ity of tablet 00:00: 00:00 mouth at [place] 00 :00 bedtime. Medical Branch water for 2021- No PRN, [facility] irrigation 03-02 Starting ity of irrigation 14:20: 15:50 on Tue [place] solution 00 :27 03/02/22 at Medica l 0920, Branch Until Tue03/02/22 at 1050, Routine, Intra-op simethicone 2021- No PRN, [facility] rs (GAS RELIEF 03-02 Starting ity of (SIMETHICON 14:20: 15:50 on Tue [place] as E)) 40 00 :27 03/02/22 at Medical mg/0.6 mL 0920, Branch drops Until Tue03/02/22 at 1050, Routine, Intra-op lactated 2021- No 1000mL at 42 [facility] rs ringers IV 03-02 06-07 mL/hr, ity of infusion 12:45: 12:59 1,000 mL, [place] as 1,000 mL 00 :00 IV Medical Infusion, Branch ONCE, 1 dose, On Tue03/02/22 at 0745, Routine, DSU Pre-op lactated 2021- No 1000mL at 42 [facility] rs ringers IV 03-02 06-07 mL/hr, ity of infusion 12:45: 12:59 1,000 mL, [place] as 1,000 mL 00 :00 IV Medical Infusion, Branch ONCE, 1 dose, On Tue03/02/22 at 0745, Routine, DSU Pre-op FOLIC ACID Yes Take by [facility] ORAL 03-02 mouth ity of 11:23: daily. [address] Branch MULTIVIT Yes Take by [facility] s &MINERALS/F 03-02 mouth. ity of ERROUS FUM 11:23: [place] ([place] [id number] Medical VITAMIN Branch ORAL) METHYLCELLU Yes [facility] s LOSE (FIBER 03-02 ity of THERAPY 11:23: [place] MIS) [address] [place] [address] DOCUSATE Yes Take by [facility] s SODIUM 03-02 mouth. ity of (COLACE 11:23: [place] ORAL) [address] [place] [address] vitamin C Yes 1000mg Take 1,000 Univers with derrell 6-07 mg by ity of hips 11:23: mouth [place] (VITAMIN C) 09 daily. Medica l 1,000 mg Branch tablet cholecalcif Yes 1000U Take 1,000 [facility] edmar, 6-07 Units by ity of vitamin D3, 11:23: mouth [place] (VITAMIN 09 daily. Medical D3) 1,000 Branch unit tablet CRANBERRY Yes Take by [facility] rs FRUIT 6-07 mouth ity of EXTRACT 11:23: daily. [place] (CRAN[place]ERRY Medical ORAL) Branch CALCIUM Yes Take by Univers ORAL 6-07 mouth ity of 11:23: daily. [place] Medical Branch DOCOSAHEXAN Yes 1000mg Take 1,000 Univers OIC 6-07 mg by ity of ACID/EPA 11:23: mouth [place] (FISH OIL 09 daily. Medical ORAL) Branch BIOTIN ORAL Yes Take by Uni vers 6-07 mouth. ity of 11:23: [place] Medical Branch FOLIC ACID Yes Take by [facility] ers ORAL 6-07 mouth ity of 11:23: daily. [place] [facility] Branch MULTIVIT Yes Take [facility] &MINERALS/F 6-07 mouth. ity of ERROUS FUM 11:23: [place] (MULTI 09 Medical VITAMIN Branch ORAL) METHYLCELLU Yes Univer s LOSE (FIBER 6-07 ity of THERAPY 11:23: [place] MISC) 09 Medical Branch DOCUSATE Yes Take by [facility] SODIUM 6-07 mouth. ity of (COLACE [...] Branch unit tablet CRANBERRY Yes Take by [facility] ers FRUIT 6-07 mouth ity of EXTRACT 11:23: daily. [place] ([place] Medical ORAL) Branch CALCIUM 2022-0 Yes Take by Univers ORAL 6-07 mouth ity of 11:23: daily. [place] Medical Branch DOCOSAHEXAN Yes 1000mg Take 1,000 [facility] OIC 6-07 mg by ity of ACID/EPA 11:23: mouth [place] (FISH OIL 09 daily. Medical ORAL) Branch BIOTIN ORAL Yes Take by Uni vers 6-07 mouth. ity of 11:23: Medical Branch FOLIC ACID Yes Take by Univ ers ORAL 6-07 mouth ity of 11:23: daily. [place] Medical Branch MULTIVIT Yes Take by Univer s &MINERALS/F 6-07 mouth. ity of ERROUS FUM 11:23: [place] (MULTI 09 Medical VITAMIN Branch ORAL) METHYLCELLU Yes [facility] s LOSE (FIBER 6-07 ity of THERAPY 11:23: [place] MISC) 09 Medical Branch DOCUSATE Yes Take by [facility] s SODIUM 6-07 mouth. ity of (COLACE 11:23: [place] ORAL) 09 Medical Branch vitamin C Yes 1000mg Take 1,000 Univers with derrell 6-07 mg by ity of hips 11:23: mouth [place] (VITAMIN C) 09 daily. Medica l 1,000 mg Branch tablet cholecalcif Yes 1000U Take 1,000 Univers edmar, 6-07 Units by ity of vitamin D3, 11:23: mouth [place] (VITAMIN 09 daily. Medical D3) 1,000 Branch unit tablet CRANBERRY Yes Take by [facility] rs FRUIT 6-07 mouth ity of EXTRACT 11:23: daily. [place] ([place] Medical ORAL) Branch CALCIUM Yes Take by Univers ORAL 6-07 mouth ity of 11:23: daily. [place] Medical Branch DOCOSAHEXAN Yes 1000mg Take 1,000 Univers OIC 6-07 mg by ity of ACID/EPA 11:23: mouth [place] (FISH OIL 09 daily. Medical ORAL) Branch BIOTIN ORAL Yes Take by Uni vers 6-07 mouth. ity of 11:23: Medical Branch FOLIC ACID Yes Take by Univ ers ORAL 6-07 mouth ity of 11:23: daily. [place] Medical Branch MULTIVIT Yes Take by Univer s &MINERALS/F 6-07 mouth. ity of ERROUS FUM 11:23: [place] (MULTI 09 Medical VITAMIN Branch ORAL) METHYLCELLU 0 Yes [facility] 6-07 ity of THERAPY 11:23: [facility]) 09 Medical Branch DOCUSATE Yes Take by [facility] SODIUM 6-07 mouth. ity of (COLACE 11:23: [place] ORAL) 09 Medical Branch vitamin C Yes 1000mg Take 1,000 Univers with derrell 6-07 mg by ity of hips 11:23: mouth [place] (VITAMIN C) 09 daily. Medica l 1,000 mg Branch tablet cholecalcif Yes 1000U Take 1,000 [facility] edmar, 6-07 Units by ity of vitamin D3, 11:23: mouth [place] (VITAMIN 09 daily. Medical D3) 1,000 Branch unit tablet CRANBERRY Yes Take by [facility] rs FRUIT 6-07 mouth ity of EXTRACT 11:23: daily. [place] (CRANBERRY 09 Medical ORAL) Branch CALCIUM Yes Take by Univers ORAL 6-07 mouth ity of 11:23: daily. [place] Medical Branch DOCOSAHEXAN Yes 1000mg Take 1,000 [facility] OIC 6-07 mg by ity of ACID/EPA 11:23: mouth [place] (FISH OIL 09 daily. Medical ORAL) Branch BIOTIN ORAL Yes Take by Uni vers 6-07 mouth. ity of 11:23: [place] [address] Medical Branch FOLIC ACID Yes Take by Univ ers ORAL 6-07 mouth ity of 11:23: daily. [place] [address] Medical Branch MULTIVIT Yes Take by [facility] &MINERALS/F 6-07 mouth. ity of ERROUS FUM 11:23: [place] (MULTI 09 Medical VITAMIN Branch ORAL) METHYLCELLU 0 Yes [facility] LOSE (FIBER 6-07 ity of THERAPY 11:23: [facility]) 09 Medical Branch DOCUSATE 0 Yes Take by [facility] s SODIUM 6-07 mouth. ity of (COLACE 11:23: [place] ORAL) 09 Medical Branch vitamin C Yes 1000mg Take 1,000 Univers with derrell 6-07 mg by ity of hips 11:23: mouth [place] (VITAMIN C) 09 daily. Medica l 1,000 mg Branch tablet cholecalcif 0 Yes 1000U Take 1,000 [facility] edmar, 6-07 Units by ity of vitamin D3, 11:23: mouth [place] (VITAMIN 09 daily. Medical D3) 1,000 Branch unit tablet CRANBERRY 0 Yes [facility] FRUIT 6-07 mouth ity of EXTRACT 11:23: daily. [place] ([place] Medical ORAL) Branch CALCIUM Yes Take by Univers ORAL 6-07 mouth ity of 11:23: daily. [place] Medical Branch DOCOSAHEXAN Yes 1000mg Take 1,000 [facility] OIC 6-07 mg by ity of ACID/EPA 11:23: mouth [place] (FISH OIL 09 daily. Medical ORAL) Branch BIOTIN ORAL Yes Take by Uni vers 6-07 mouth. ity of 11:23: Medical Branch FOLIC ACID Yes Take by Univ ers ORAL 6-07 mouth ity of 11:23: daily. [place] Medical Branch MULTIVIT Yes Take by [facility] &MINERALS/F 6-07 mouth. ity of ERROUS FUM 11:23: [place] (MULTI 09 Medical VITAMIN Branch ORAL) METHYLCELLU Yes [facility] LOSE (FIBER 6-07 ity of THERAPY 11:23: [place] MISC) 09 Medical Branch DOCUSATE Yes Take by [facility] SODIUM 6-07 mouth. ity of (COLACE 11:23: [place] ORAL) 09 Medical Branch vitamin C Yes 1000mg Take 1,000 [facility] with derrell 6-07 mg by ity of hips 11:23: mouth [place] (VITAMIN C) 09 daily. Medica l 1,000 mg Branch tablet cholecalcif 0 Yes 1000U Take 1,000 [facility] edmar, 6-07 Units by ity of vitamin D3, 11:23: mouth [place] (VITAMIN 09 daily. Medical D3) 1,000 Branch unit tablet CRANBERRY 2021-0 Yes [facility] FRUIT 6-07 mouth ity of EXTRACT 11:23: daily. [place] (CRANBERRY 09 Medical ORAL) Branch CALCIUM Yes Take by Univers ORAL 6-07 mouth ity of 11:23: daily. [place] Medical Branch DOCOSAHEXAN 0 Yes 1000mg Take 1,000 [facility] OIC 6-07 mg by ity of ACID/EPA 11:23: mouth [place] (FISH OIL 09 daily. Medical ORAL) Branch BIOTIN ORAL Yes Take by Uni vers 6-07 mouth. ity of 11:23: Medical Branch FOLIC ACID Yes Take by Univ ers ORAL 6-07 mouth ity of 11:23: daily. [place] Medical Branch MULTIVIT Yes Take by Univer s &MINERALS/F 6-07 mouth. ity of ERROUS FUM 11:23: [place] (MULTI 09 Medical VITAMIN Branch ORAL) METHYLCELLU Yes [facility] LOSE (FIBER 6-07 ity of THERAPY 11:23: [place] MISC) Medical Branch DOCUSATE Yes Take by [facility] SODIUM 6-07 mouth. ity of (COLACE 11:23: [place] ORAL) 09 Medical Branch vitamin C Yes 1000mg Take 1,000 Univers with derrell 6-07 mg by ity of hips 11:23: mouth [place] (VITAMIN C) 09 daily. Medica l 1,000 mg Branch tablet cholecalcif Yes 1000U Take 1,000 [facility] edmar, 6-07 Units by ity of vitamin D3, 11:23: mouth [place] (VITAMIN 09 daily. Medical D3) 1,000 Branch unit tablet CRANBERRY Yes Take by Unive rs FRUIT 6-07 mouth ity of EXTRACT 11:23: daily. [place] ([place] Medical ORAL) Branch CALCIUM Yes Take by Univers ORAL 6-07 mouth ity of 11:23: daily. [place] Medical Branch DOCOSAHEXAN Yes 1000mg Take 1,000 Univers OIC 6-07 mg by ity of ACID/EPA 11:23: mouth [place] (FISH OIL 09 daily. Medical ORAL) Branch BIOTIN ORAL Yes Take by Uni vers 6-07 mouth. ity of 11:23: [place] Medical Branch FOLIC ACID 0 Yes Take by Univ ers ORAL 6-07 mouth ity of 11:23: daily. [place] [address] Medical Branch MULTIVIT Yes Take by Univer s &MINERALS/F 6-07 mouth. ity of ERROUS FUM 11:23: [place] (MULTI 09 Medical VITAMIN Branch ORAL) METHYLCELLU 2022-0 Yes Univer s LOSE (FIBER 6-07 ity of THERAPY 11:23: [facility]) 09 Medical Branch DOCUSATE Yes Take by [facility] s SODIUM 6-07 mouth. ity of (COLACE [...] 6-07 mouth ity of EXTRACT 11:23: daily. [place] (CRANBERRY 09 Medical ORAL) Branch CALCIUM Yes Take by [facility] ORAL 6-07 mouth ity of 11:23: daily. [place] Medical Branch DOCOSAHEXAN Yes 1000mg Take 1,000 Univers OIC 6-07 mg by ity of ACID/EPA 11:23: mouth [place] (FISH OIL 09 daily. Medical ORAL) Branch BIOTIN ORAL Yes Take by Uni vers 6-07 mouth. ity of 11:23: [place] Medical Branch FOLIC ACID Yes Take by Univ ers ORAL 6-07 mouth ity of 11:23: daily. [place] Medical Branch MULTIVIT Yes Take by [facility] rs &MINERALS/F 6-07 mouth. ity of ERROUS FUM 11:23: [place] (MULTI 09 Medical VITAMIN Branch ORAL) METHYLCELLU 0 Yes Univer s LOSE (FIBER 6-07 ity of THERAPY 11:23: [facility]) 09 Medical Branch DOCUSATE Yes Take by [facility] SODIUM 6-07 mouth. ity of (COLACE 11:23: [place] ORAL) 09 Medical Branch vitamin C Yes [...] 6-07 mouth ity of EXTRACT 11:23: daily. [place] ([place] Medical ORAL) Branch CALCIUM Yes Take by Univers ORAL 6-07 mouth ity of 11:23: daily. [place] Medical Branch DOCOSAHEXAN Yes 1000mg Take 1,000 Univers OIC 6-07 mg by ity of ACID/EPA 11:23: mouth [place] (FISH OIL 09 daily. Medical ORAL) Branch BIOTIN ORAL Yes Take by Uni vers 6-07 mouth. ity of 11:23: [place] Medical Branch FOLIC ACID Yes Take by Univ ers ORAL 6-07 mouth ity of 11:23: daily. [place] Medical Branch MULTIVIT Yes Take by Univer s &MINERALS/F 6-07 mouth. ity of ERROUS FUM 11:23: [place] (MULTI 09 Medical VITAMIN Branch ORAL) METHYLCELLU Yes Univer s LOSE (FIBER 6-07 ity of THERAPY 11:23: [place] MISC) Medical Branch DOCUSATE Yes Take by Univer s SODIUM 6-07 mouth. ity of (COLACE 11:23: [place] ORAL) Medical Branch vitamin C Yes 1000mg Take 1,000 Univers with derrell 6-07 mg by ity of hips 11:23: mouth [place] (VITAMIN C) 09 daily. Medica l 1,000 mg Branch tablet cholecalcif Yes 1000U Take 1,000 [facility] edmar, 6-07 Units by ity of vitamin D3, 11:23: mouth [place] (VITAMIN 09 daily. Medical D3) 1,000 Branch unit tablet CRANBERRY Yes [facility]07 mouth ity of EXTRACT 11:23: daily. [place] ([place] Medical ORAL) Branch CALCIUM Yes Take by Univers ORAL 6-07 mouth ity of 11:23: daily. [place] [facility] DOCOSAHEXAN Yes 1000mg Take 1,000 [facility] OIC 6-07 mg by ity of ACID/EPA 11:23: mouth [place] (FISH OIL 09 daily. Medical ORAL) Branch BIOTIN ORAL Yes Take by Uni vers 6-07 mouth. ity of 11:23: Medical Branch FOLIC ACID Yes Take by [facility] ers ORAL 6-07 mouth ity of 11:23: daily. [place] [facility] MULTIVIT Yes Take by [facility] &MINERALS/F 6-07 mouth. ity of ERROUS FUM 11:23: [place] (MULTI 09 Medical VITAMIN Branch ORAL) METHYLCELLU 0 Yes Univer s LOSE (FIBER 6-07 ity of THERAPY 11:23: [facility]) 09 Medical Branch DOCUSATE Yes Take by Univer s SODIUM 6-07 mouth. ity of (COLACE 11:23: [place] [facility]) 09 Medical Branch vitamin C Yes 1000mg Take 1,000 [facility] with derrell 6-07 mg by ity of hips 11:23: mouth [place] (VITAMIN C) 09 daily. Medica l 1,000 mg Branch tablet cholecalcif Yes 1000U Take 1,000 [facility] edmar, 6-07 Units by ity of vitamin D3, 11:23: mouth [place] (VITAMIN 09 daily. Medical D3) 1,000 Branch unit tablet CRANBERRY Yes Take by Unive rs FRUIT 6-07 mouth ity of EXTRACT 11:23: daily. [place] (CRANBERRY Medical ORAL) Branch CALCIUM Yes Take by [facility] ORAL 6-07 mouth ity of 11:23: daily. [place] [facility] DOCOSAHEXAN Yes 1000mg Take 1,000 [facility] OIC 6-07 mg by ity of ACID/EPA 11:23: mouth [place] (FISH OIL 09 daily. Medical ORAL) Branch BIOTIN ORAL Yes Take by [facility] vers 6-07 mouth. ity of 11:23: Medical Branch FOLIC ACID Yes Take by [facility] ers ORAL 6-07 mouth ity of 11:23: daily. [place] [facility] MULTIVIT 0 Yes Take by [facility]iver s &MINERALS/F 6-07 mouth. ity of ERROUS FUM 11:23: [place] (MULTI 09 Medical VITAMIN Branch ORAL) METHYLCELLU 0 Yes Univer s LOSE (FIBER 6-07 ity of THERAPY 11:23: [facility]) 09 Medical Branch DOCUSATE 2022-0 Yes Take by [facility] s SODIUM 6-07 mouth. ity of (COLACE [...] Branch unit tablet CRANBERRY Yes Take by [facility] rs FRUIT 6-07 mouth ity of EXTRACT 11:23: daily. [place] (CRANBERRY Medical ORAL) Branch CALCIUM Yes Take by [facility] ORAL 6-07 mouth ity of 11:23: daily. [place] [facility] DOCOSAHEXAN Yes 1000mg Take 1,000 [facility] OIC 6-07 mg by ity of ACID/EPA 11:23: mouth [place] (FISH OIL 09 daily. Medical ORAL) Branch BIOTIN ORAL Yes Take by Uni vers 6-07 mouth. ity of 11:23: [place] [address] Medical Branch FOLIC ACID Yes Take by [facility] ers ORAL 6-07 mouth ity of 11:23: daily. [place] 09 Medical [facility] mouth. ity of ERROUS FUM 11:23: [place] (MULTI 09 Medical VITAMIN Branch ORAL) METHYLCELLU 0 Yes [facility] s LOSE (FIBER 6-07 ity of THERAPY 11:23: [place] [facility]) 09 Medical Branch DOCUSATE Yes Take by [facility] s SODIUM 6-07 mouth. ity of (COLACE [...] 6-07 mouth ity of EXTRACT 11:23: daily. [place] (CRANBERRY Medical ORAL) Branch CALCIUM Yes Take by [facility] ORAL 6-07 mouth ity of 11:23: daily. [place] [facility] DOCOSAHEXAN Yes 1000mg Take 1,000 [facility] OIC 6-07 mg by ity of ACID/EPA 11:23: mouth [place] (FISH OIL 09 daily. Medical ORAL) Branch BIOTIN ORAL Yes Take by [facility] vers 6-07 mouth. ity of 11:23: [place] [address] Medical Branch FOLIC ACID Yes Take by [facility] ers ORAL 6-07 mouth ity of 11:23: daily. [place] [facility] MULTIVIT Yes Take by [facility] &MINERALS/F 6-07 mouth. ity of ERROUS FUM 11:23: [place] (MULTI 09 Medical VITAMIN Branch ORAL) METHYLCELLU Yes Univer s LOSE (FIBER 6-07 ity of THERAPY 11:23: [place] [facility]) Medical Branch DOCUSATE Yes Take by [facility] SODIUM 6-07 mouth. ity of (COLACE 11:23: [place] ORAL) Medical Branch vitamin C Yes 1000mg Take 1,000 [facility] with derrell 6-07 mg by ity of hips 11:23: mouth [place] (VITAMIN C) 09 daily. Medica l 1,000 mg Branch tablet cholecalcif Yes 1000U Take 1,000 [facility] edmar, 6-07 Units by ity of vitamin D3, 11:23: mouth [place] (VITAMIN 09 daily. Medical D3) 1,000 Branch unit tablet CRANBERRY Yes Take by [facility] rs FRUIT 6-07 mouth ity of EXTRACT 11:23: daily. [place] (CRANBERRY Medical ORAL) Branch CALCIUM Yes Take by [facility] ORAL 6-07 mouth ity of 11:23: daily. [place] [facility] DOCOSAHEXAN Yes 1000mg Take 1,000 [facility] OIC 6-07 mg by ity of ACID/EPA 11:23: mouth [place] (FISH OIL 09 daily. Medical ORAL) Branch BIOTIN ORAL Yes Take by [facility] vers 6-07 mouth. ity of 11:23: [place] [address] Medical Branch FOLIC ACID Yes Take by Univ ers ORAL 6-07 mouth ity of 11:23: daily. [place] [address] Medical Branch MULTIVIT Yes Take by Un[facility] s &MINERALS/F 6-07 mouth. ity of ERROUS FUM 11:23: [place] (MULTI 09 Medical VITAMIN Branch ORAL) METHYLCELLU Yes Univer s LOSE (FIBER 6-07 ity of THERAPY 11:23: [facility]) 09 Medical Branch DOCUSATE Yes [...] by ity of vitamin D3, 11:23: mouth [place] (VITAMIN 09 daily. Medical D3) 1,000 Branch unit tablet CRANBERRY [facility] mouth ity of EXTRACT 11:23: daily. [place] (CRANBERRY 09 Medical ORAL) Branch CALCIUM Yes Take by [facility] ORAL 6-07 mouth ity of 11:23: daily. [place] [address] Medical Branch DOCOSAHEXAN Yes 1000mg Take 1,000 [facility] OIC 6-07 mg by ity of ACID/EPA 11:23: mouth [place] (FISH OIL 09 daily. Medical ORAL) Branch BIOTIN ORAL Yes Take by [facility] vers 6-07 mouth. ity of 11:23: [place] [address] Medical Branch FOLIC ACID Yes Take by [facility] ers ORAL 6-07 mouth ity of 11:23: daily. [place] [address] Medical Branch MULTIVIT Yes Take by Univer s &MINERALS/F 6-07 mouth. ity of ERROUS FUM 11:23: [place] (MULTI 09 Medical VITAMIN Branch ORAL) METHYLCELLU Yes Univer s LOSE (FIBER 6-07 ity of THERAPY 11:23: [place] [facility]) 09 Medical Branch DOCUSATE Yes Take by [facility] s SODIUM 6-07 mouth. ity of (COLACE [...] 6-07 mouth ity of EXTRACT 11:23: daily. [place] (CRANBERRY Medical ORAL) Branch CALCIUM Yes Take by [facility] ORAL 6-07 mouth ity of 11:23: daily. [place] [facility] DOCOSAHEXAN Yes 1000mg Take 1,000 [facility] OIC 6-07 mg by ity of ACID/EPA 11:23: mouth [place] (FISH OIL 09 daily. Medical ORAL) Branch BIOTIN ORAL Yes Take by [facility] vers 6-07 mouth. ity of 11:23: Medical Branch FOLIC ACID Yes Take by [facility] ers ORAL 6-07 mouth ity of 11:23: daily. [place] [facility] MULTIVIT Yes Take by Un[facility] s &MINERALS/F 6-07 mouth. ity of ERROUS FUM 11:23: [place] (MULTI 09 Medical VITAMIN Branch ORAL) METHYLCELLU Yes Univer s LOSE (FIBER 6-07 ity of THERAPY 11:23: [place] [facility]) 09 Medical Branch DOCUSATE Yes Take [...] 6-07 mouth ity of EXTRACT 11:23: daily. [place] (CRANBERRY 09 Medical ORAL) Branch CALCIUM Yes [...] 6-07 mouth. ity of ERROUS FUM 11:23: [place] (MULTI 09 Medical VITAMIN Branch ORAL) METHYLCELLU Yes [facility] 6-07 ity of THERAPY 11:23: [place] [facility]) 09 Medical Branch DOCUSATE Yes Take by [facility] SODIUM 6-07 mouth. ity of (COLACE [...] Branch unit tablet CRANBERRY [facility] mouth ity of EXTRACT 11:23: daily. [place] (CRANBERRY Medical ORAL) Branch CALCIUM Yes Take [...] LOSE (FIBER 6-07 ity of THERAPY 11:23: [facility]) Medical Branch DOCUSATE Yes Take by Univer [...] by ity of vitamin D3, 11:23: mouth [place] (VITAMIN 09 daily. Medical D3) 1,000 Branch unit tablet CRANBERRY [facility]07 mouth ity of EXTRACT 11:23: daily. [place] (CRANBERRY Medical ORAL) Branch CALCIUM Yes Take by [facility] ORAL 6-07 mouth ity of 11:23: daily. [place] [facility] DOCOSAHEXAN Yes 1000mg Take 1,000 [facility] OIC 6-07 mg by ity of ACID/EPA 11:23: mouth [place] (FISH OIL 09 daily. Medical ORAL) Branch BIOTIN ORAL Yes Take by [facility] vers 6-07 mouth. ity of 11:23: [place] [address] Medical Branch FOLIC ACID Yes Take by [facility] ers ORAL 6-07 mouth ity of 11:23: daily. [place] [address] Medical Branch MULTIVIT Yes Take by [facility]iver s &MINERALS/F 6-07 mouth. ity of ERROUS FUM 11:23: [place] (MULTI 09 Medical VITAMIN Branch ORAL) METHYLCELLU 0 Yes Univer s LOSE (FIBER 6-07 ity of THERAPY 11:23: [facility]) 09 Medical Branch DOCUSATE Yes [...] by ity of vitamin D3, 11:23: mouth [place] (VITAMIN 09 daily. Medical D3) 1,000 Branch unit tablet CRANBERRY 0 Yes [facility] mouth ity of EXTRACT 11:23: daily. [place] (CRANBERRY Medical ORAL) Branch CALCIUM Yes Take by [facility] ORAL 6-07 mouth ity of 11:23: daily. [place] [facility] DOCOSAHEXAN Yes 1000mg Take 1,000 [facility] OIC 6-07 mg by ity of ACID/EPA 11:23: mouth [place] (FISH OIL 09 daily. Medical ORAL) Branch BIOTIN ORAL Yes Take by [facility] vers 6-07 mouth. ity of 11:23: [place] [facility] FOLIC ACID Yes Take by [facility] ers ORAL 6-07 mouth ity of 11:23: daily. [place] [facility] MULTIVIT Yes Take [facility] &MINERALS/F 6-07 mouth. ity of ERROUS FUM 11:23: [place] (MULTI 09 Medical VITAMIN Branch ORAL) METHYLCELLU 0 Yes [facility] (FIBER 6-07 ity of THERAPY 11:23: [place] [facility]) 09 Medical Branch DOCUSATE Yes Take by [facility] SODIUM 6-07 mouth. ity of (COLACE 11:23: [place] ORAL) 09 Medical Branch vitamin C Yes 1000mg Take 1,000 [facility] with derrell 6-07 mg by ity of hips 11:23: mouth [place] (VITAMIN C) 09 daily. Medica l 1,000 mg Branch tablet cholecalcif 0 Yes 1000U Take 1,000 [facility] edmar, 6-07 Units by ity of vitamin D3, 11:23: mouth [place] (VITAMIN 09 daily. Medical D3) 1,000 Branch unit tablet CRANBERRY 2021-0 Yes Take [facility]-07 mouth ity of EXTRACT 11:23: daily. [place] (CRANBERRY Medical ORAL) Branch CALCIUM 0 Yes Take by [facility] ORAL 6-07 mouth ity of 11:23: daily. [place] [facility] DOCOSAHEXAN 2022-0 Yes 1000mg Take 1,000 [facility] OIC 6-07 mg by ity of ACID/EPA 11:23: mouth [place] (FISH OIL 09 daily. Medical ORAL) Branch BIOTIN ORAL Yes Take by [facility] vers 6-07 mouth. ity of 11:23: Medical Branch FOLIC ACID Yes Take by [facility] ers ORAL 6-07 mouth ity of 11:23: daily. [place] [facility] MULTIVIT Yes Take by [facility] s &MINERALS/F 6-07 mouth. ity of ERROUS FUM 11:23: [place] (MULTI 09 Medical VITAMIN Branch ORAL) METHYLCELLU Yes [facility] (FIBER 6-07 ity of THERAPY 11:23: [place] [facility]) 09 Medical Branch DOCUSATE Yes Take by [facility] SODIUM 6-07 mouth. ity of (COLACE 11:23: [place] ORAL) 09 Medical Branch vitamin C Yes 1000mg Take 1,000 [facility] with derrell 6-07 mg by ity of hips 11:23: mouth [place] (VITAMIN C) 09 daily. Medica l 1,000 mg Branch tablet cholecalcif Yes 1000U Take 1,000 [facility] edmar, 6-07 Units by ity of vitamin D3, 11:23: mouth [place] (VITAMIN 09 daily. Medical D3) 1,000 Branch unit tablet CRANBERRY Yes Take by [facility] rs FRUIT 6-07 mouth ity of EXTRACT 11:23: daily. [place] (CRANBERRY Medical ORAL) Branch CALCIUM Yes Take by [facility] ORAL 6-07 mouth ity of 11:23: daily. [place] [facility] DOCOSAHEXAN Yes 1000mg Take 1,000 [facility] OIC 6-07 mg by ity of ACID/EPA 11:23: mouth [place] (FISH OIL 09 daily. Medical ORAL) Branch BIOTIN ORAL Yes Take by [facility] vers 6-07 mouth. ity of 11:23: Medical Branch FOLIC ACID 0 Yes Take by [facility] ers ORAL 6-07 mouth ity of 11:23: daily. [place] [facility] MULTIVIT Yes Take by Univer s &MINERALS/F 6-07 mouth. ity of ERROUS FUM 11:23: [place] (MULTI 09 Medical VITAMIN Branch ORAL) METHYLCELLU 2022-0 Yes [facility] (FIBER 6-07 ity of THERAPY 11:23: [facility]) 09 Medical Branch DOCUSATE Yes Take by [facility] SODIUM 6-07 mouth. ity of (COLACE [...] Branch unit tablet CRANBERRY Yes Take by [facility] rs FRUIT 6-07 mouth ity of EXTRACT 11:23: daily. [place] (CRANBERRY Medical ORAL) Branch CALCIUM Yes Take by [facility] ORAL 6-07 mouth ity of 11:23: daily. [place] [facility] DOCOSAHEXAN Yes 1000mg Take 1,000 [facility] OIC 6-07 mg by ity of ACID/EPA 11:23: mouth [place] (FISH OIL 09 daily. Medical ORAL) Branch BIOTIN ORAL Yes Take by [facility] vers 6-07 mouth. ity of 11:23: [place] [facility] FOLIC ACID Yes Take by [facility] ers ORAL 6-07 mouth ity of 11:23: daily. [place] [facility] MULTIVIT Yes Take by [facility] &MINERALS/F 6-07 mouth. ity of ERROUS FUM 11:23: [place] (MULTI 09 Medical VITAMIN Branch ORAL) METHYLCELLU Yes Univer s LOSE (FIBER 6-07 ity of THERAPY 11:23: [facility]) 09 Medical Branch DOCUSATE Yes Take by [facility] SODIUM 6-07 mouth. ity of (COLACE [...] Branch unit tablet CRANBERRY Yes Take [facility] 6-07 mouth ity of EXTRACT 11:23: daily. [place] (CRANBERRY Medical ORAL) Branch CALCIUM Yes Take by [facility] ORAL 6-07 mouth ity of 11:23: daily. [place] [facility] DOCOSAHEXAN Yes 1000mg Take 1,000 [facility] OIC 6-07 mg by ity of ACID/EPA 11:23: mouth [place] (FISH OIL 09 daily. Medical ORAL) Branch BIOTIN ORAL Yes Take by [facility] vers 6-07 mouth. ity of 11:23: Medical Branch FOLIC ACID Yes Take by [facility] ers ORAL 6-07 mouth ity of 11:23: daily. [place] [facility] MULTIVIT Yes Take by [facility] &MINERALS/F 6-07 mouth. ity of ERROUS FUM 11:23: [place] (MULTI 09 Medical VITAMIN Branch ORAL) METHYLCELLU Yes Univer s LOSE (FIBER 6-07 ity of THERAPY 11:23: [place] [facility]) 09 Medical Branch DOCUSATE Yes Take by [facility] SODIUM 6-07 mouth. ity of (COLACE 11:23: [place] ORAL) 09 Medical Branch vitamin C Yes 1000mg Take 1,000 [facility] with derrell 6-07 mg by ity of hips 11:23: mouth [place] (VITAMIN C) 09 daily. Medica l 1,000 mg Branch tablet cholecalcif Yes 1000U Take 1,000 [facility] edmar, 6-07 Units by ity of vitamin D3, 11:23: mouth [place] (VITAMIN 09 daily. Medical D3) 1,000 Branch unit tablet CRANBERRY Yes Take [facility] 6-07 mouth ity of EXTRACT 11:23: daily. [place] (CRANBERRY Medical ORAL) Branch CALCIUM Yes Take by [facility] ORAL 6-07 mouth ity of 11:23: daily. [place] [facility] DOCOSAHEXAN Yes 1000mg Take 1,000 [facility] OIC 6-07 mg by ity of ACID/EPA 11:23: mouth [place] (FISH OIL 09 daily. Medical ORAL) Branch BIOTIN ORAL Yes Take by [facility] vers 6-07 mouth. ity of 11:23: Medical Branch FOLIC ACID Yes Take by [facility] ers ORAL 6-07 mouth ity of 11:23: daily. [place] [facility] MULTIVIT Yes Take by Univer s &MINERALS/F 6-07 mouth. ity of ERROUS FUM 11:23: [place] (MULTI 09 Medical VITAMIN Branch ORAL) METHYLCELLU 0 Yes Univer s LOSE (FIBER 6-07 ity of THERAPY 11:23: [facility]) 09 Medical Branch DOCUSATE Yes Take by Univer s SODIUM 6-07 mouth. ity of (COLACE 11:23: [place] OR[facility]) 09 Medical Branch vitamin C Yes 1000mg Take 1,000 [facility] with derrell 6-07 mg by ity of hips 11:23: mouth [place] (VITAMIN C) 09 daily. Medica l 1,000 mg Branch tablet cholecalcif Yes 1000U Take 1,000 [facility] edmar, 6-07 Units by ity of vitamin D3, 11:23: mouth [place] (VITAMIN 09 daily. Medical D3) 1,000 Branch unit tablet CRANBERRY Yes Take by [facility] rs FRUIT 6-07 mouth ity of EXTRACT 11:23: daily. [place] (CRANBERRY Medical ORAL) Branch CALCIUM Yes Take by [facility] ORAL 6-07 mouth ity of 11:23: daily. [place] [facility] DOCOSAHEXAN Yes 1000mg Take 1,000 [facility] OIC 6-07 mg by ity of ACID/EPA 11:23: mouth [place] (FISH OIL 09 daily. Medical ORAL) Branch BIOTIN ORAL Yes Take by [facility] vers 6-07 mouth. ity of 11:23: Medical Branch FOLIC ACID Yes Take by [facility] ers ORAL 6-07 mouth ity of 11:23: daily. [place] [facility] MULTIVIT Yes Take by Un[facility] s &MINERALS/F 6-07 mouth. ity of ERROUS FUM 11:23: [place] (MULTI 09 Medical VITAMIN Branch ORAL) METHYLCELLU 0 Yes Univer s LOSE (FIBER 6-07 ity of THERAPY 11:23: [facility]) 09 Medical Branch DOCUSATE 2022-0 Yes Take by [facility] SODIUM 6-07 mouth. ity of (COLACE [...] Branch unit tablet CRANBERRY Yes Take by [facility] rs FRUIT 6-07 mouth ity of EXTRACT 11:23: daily. [place] (CRANBERRY Medical ORAL) Branch CALCIUM Yes Take by [facility] ORAL 6-07 mouth ity of 11:23: daily. [place] [facility] DOCOSAHEXAN Yes 1000mg Take 1,000 [facility] OIC 6-07 mg by ity of ACID/EPA 11:23: mouth [place] (FISH OIL 09 daily. Medical ORAL) Branch BIOTIN ORAL Yes Take by Uni vers 6-07 mouth. ity of 11:23: [place] [address] Medical Branch FOLIC ACID Yes Take by Univ ers ORAL 6-07 mouth ity of 11:23: daily. [place] [address] Medical Branch MULTIVIT Yes Take by [facility] &MINERALS/F 6-07 mouth. ity of ERROUS FUM 11:23: [place] (MULTI 09 Medical VITAMIN Branch ORAL) METHYLCELLU Yes [facility] s LOSE (FIBER 6-07 ity of THERAPY 11:23: [facility]) 09 Medical Branch DOCUSATE Yes Take by [facility] SODIUM 6-07 mouth. ity of (COLACE 11:23: [place] ORAL) 09 Medical Branch vitamin C Yes 1000mg Take 1,000 [facility] with derrell 6-07 mg by ity of hips 11:23: mouth [place] (VITAMIN C) 09 daily. Medica l 1,000 mg Branch tablet cholecalcif Yes 1000U Take 1,000 [facility] edmar, 6-07 Units by ity of vitamin D3, 11:23: mouth [place] (VITAMIN 09 daily. Medical D3) 1,000 Branch unit tablet CRANBERRY Yes Take [facility]-07 mouth ity of EXTRACT 11:23: daily. [place] (CRANBERRY Medical ORAL) Branch CALCIUM Yes Take by [facility] ORAL 6-07 mouth ity of 11:23: daily. [place] [facility] DOCOSAHEXAN Yes 1000mg Take 1,000 [facility] OIC 6-07 mg by ity of ACID/EPA 11:23: mouth [place] (FISH OIL 09 daily. Medical ORAL) Branch BIOTIN ORAL Yes Take by [facility] vers 6-07 mouth. ity of 11:23: [place] [facility] FOLIC ACID Yes Take by [facility] ers ORAL 6-07 mouth ity of 11:23: daily. [place] [facility] MULTIVIT Yes Take by [facility] s &MINERALS/F 6-07 mouth. ity of ERROUS FUM 11:23: [place] (MULTI 09 Medical VITAMIN Branch ORAL) METHYLCELLU Yes [facility] (FIBER 6-07 ity of THERAPY 11:23: [place] [facility]) Medical Branch DOCUSATE Yes Take by [facility] SODIUM 6-07 mouth. ity of (COLACE 11:23: [place] ORAL) 09 Medical Branch vitamin C Yes 1000mg Take 1,000 [facility] with derrell 6-07 mg by ity of hips 11:23: mouth [place] (VITAMIN C) 09 daily. Medica l 1,000 mg Branch tablet cholecalcif Yes 1000U Take 1,000 [facility] edmar, 6-07 Units by ity of vitamin D3, 11:23: mouth [place] (VITAMIN 09 daily. Medical D3) 1,000 Branch unit tablet CRANBERRY Yes Take [facility] 6-07 mouth ity of EXTRACT 11:23: daily. [place] (CRANBERRY Medical ORAL) Branch CALCIUM Yes Take by [facility] ORAL 6-07 mouth ity of 11:23: daily. [place] [facility] DOCOSAHEXAN Yes 1000mg Take 1,000 [facility] OIC 6-07 mg by ity of ACID/EPA 11:23: mouth [place] (FISH OIL 09 daily. Medical ORAL) Branch BIOTIN ORAL Yes Take by [facility] vers 6-07 mouth. ity of 11:23: [place] [address] Medical Branch FOLIC ACID Yes Take by [facility] ers ORAL 6-07 mouth ity of 11:23: daily. [place] [address] Medical Branch MULTIVIT Yes Take by [facility] &MINERALS/F 6-07 mouth. ity of ERROUS FUM 11:23: [place] ([place] [address] Medical VITAMIN Branch ORAL) METHYLCELLU Yes Univer s LOSE (FIBER 6-07 ity of THERAPY 11:23: [facility]) 09 Medical Branch DOCUSATE Yes Take by [facility] SODIUM 6-07 mouth. ity of (COLACE 11:23: [place] ORAL) 09 Medical Branch vitamin C Yes 1000mg Take 1,000 [facility] with derrell 6-07 mg by ity of hips 11:23: mouth [place] (VITAMIN C) 09 daily. Medica l 1,000 mg Branch tablet cholecalcif Yes 1000U Take 1,000 [facility] edmar, 6-07 Units by ity of vitamin D3, 11:23: mouth [place] (VITAMIN 09 daily. Medical D3) 1,000 Branch unit tablet CRANBERRY Yes Take by [facility] rs FRUIT 6-07 mouth ity of EXTRACT 11:23: daily. [place] (CRANBERRY 09 Medical ORAL) Branch CALCIUM Yes Take by [facility] ORAL 6-07 mouth ity of 11:23: daily. [place] [address] Medical Branch DOCOSAHEXAN Yes 1000mg Take 1,000 [facility] OIC 6-07 mg by ity of ACID/EPA 11:23: mouth [place] (FISH OIL 09 daily. Medical ORAL) Branch BIOTIN ORAL Yes Take by [facility] vers 6-07 mouth. ity of 11:23: [place] [address] Medical Branch FOLIC ACID Yes Take by [facility] ers ORAL 6-07 mouth ity of 11:23: daily. [place] [address] Medical Branch MULTIVIT Yes Take by [facility] &MINERALS/F 6-07 mouth. ity of ERROUS FUM 11:23: [place] ([place] [address] Medical VITAMIN Branch ORAL) METHYLCELLU Yes Univer s LOSE (FIBER 6-07 ity of THERAPY 11:23: [facility]) 09 Medical Branch DOCUSATE Yes Take by [facility] s SODIUM 6-07 mouth. ity of (COLACE [...] Branch unit tablet CRANBERRY Yes Take [facility]-07 mouth ity of EXTRACT 11:23: daily. [place] ([place] Medical ORAL) Branch CALCIUM Yes Take by [facility] ORAL 6-07 mouth ity of 11:23: daily. [place] [facility] DOCOSAHEXAN Yes 1000mg Take 1,000 [facility] OIC 6-07 mg by ity of ACID/EPA 11:23: mouth [place] (FISH OIL 09 daily. Medical ORAL) Branch BIOTIN ORAL Yes Take by [facility] vers 6-07 mouth. ity of 11:23: [place] [facility] FOLIC ACID Yes Take by [facility] ers ORAL 6-07 mouth ity of 11:23: daily. [place] [facility] MULTIVIT Yes Take [facility] &MINERALS/F 6-07 mouth. ity of ERROUS FUM 11:23: [place] (MULTI 09 Medical VITAMIN Branch ORAL) METHYLCELLU Yes Univer s LOSE (FIBER 6-07 ity of THERAPY 11:23: [place] [facility]) 09 Medical Branch DOCUSATE Yes Take by [facility] SODIUM 6-07 mouth. ity of (COLACE 11:23: [place] ORAL) 09 Medical Branch vitamin C Yes 1000mg Take 1,000 [facility] with derrell 6-07 mg by ity of hips 11:23: mouth [place] (VITAMIN C) 09 daily. Medica l 1,000 mg Branch tablet cholecalcif Yes 1000U Take 1,000 [facility] edmar, 6-07 Units by ity of vitamin D3, 11:23: mouth [place] (VITAMIN 09 daily. Medical D3) 1,000 Branch unit tablet CRANBERRY Yes Take by [facility] rs FRUIT 6-07 mouth ity of EXTRACT 11:23: daily. [place] (CR[place]Y 09 Medical ORAL) Branch CALCIUM 2022-0 Yes Take by [facility] ORAL 6-07 mouth ity of 11:23: daily. [place] [facility] DOCOSAHEXAN Yes 1000mg Take 1,000 [facility] OIC 6-07 mg by ity of ACID/EPA 11:23: mouth [place] (FISH OIL 09 daily. Medical ORAL) Branch BIOTIN ORAL Yes Take by [facility] vers 6-07 mouth. ity of 11:23: Medical Branch FOLIC ACID Yes Take by Univ ers ORAL 6-07 mouth ity of 11:23: daily. [place] [facility] MULTIVIT Yes Take by Univer s &MINERALS/F 6-07 mouth. ity of ERROUS FUM 11:23: [place] (MULTI 09 Medical VITAMIN Branch ORAL) METHYLCELLU Yes Univer s LOSE (FIBER 6-07 ity of THERAPY 11:23: [place] MISC) Medical Branch DOCUSATE Yes Take by [facility] s SODIUM 6-07 mouth. ity of (COLACE 11:23: [place] ORAL) 09 Medical Branch vitamin C Yes 1000mg Take 1,000 [facility] with edrrell 6-07 mg by ity of hips 11:23: mouth [place] (VITAMIN C) 09 daily. Medica l 1,000 mg Branch tablet cholecalcif Yes 1000U Take 1,000 [facility] edmar, 6-07 Units by ity of vitamin D3, 11:23: mouth [place] (VITAMIN 09 daily. Medical D3) 1,000 Branch unit tablet CRANBERRY Yes Take by [facility] rs FRUIT 6-07 mouth ity of EXTRACT 11:23: daily. [place] ([place] Medical ORAL) Branch CALCIUM Yes Take by [facility] ORAL 6-07 mouth ity of 11:23: daily. [place] [facility] DOCOSAHEXAN Yes 1000mg Take 1,000 [facility] OIC 6-07 mg by ity of ACID/EPA 11:23: mouth [place] (FISH OIL 09 daily. Medical ORAL) Branch BIOTIN ORAL Yes Take by [facility] vers 6-07 mouth. ity of 11:23: Medical Branch FOLIC ACID Yes Take by Univ ers ORAL 6-07 mouth ity of 11:23: daily. [place] 09 Medical Branch MULTIVIT Yes [facility] &MIN[facility]ALS/F 6-07 mouth. ity of ERROUS FUM 11:23: [place] ([place] [address] Medical VITAMIN Branch ORAL) METHYLCELLU Yes [facility] (FIBER 6-07 ity of THERAPY 11:23: [facility]) Medical Branch DOCUSATE Yes Take by Univer [...] by ity of vitamin D3, 11:23: mouth [place] (VITAMIN 09 daily. Medical D3) 1,000 Branch unit tablet CRANBERRY Yes Take by [facility] rs FRUIT 6-07 mouth ity of EXTRACT 11:23: daily. [place] ([place]Y 09 Medical ORAL) Branch CALCIUM Yes Take by Univers ORAL 6-07 mouth ity of 11:23: daily. [place] [address] Medical Branch DOCOSAHEXAN Yes 1000mg Take 1,000 [facility] OIC 6-07 mg by ity of ACID/EPA 11:23: mouth [place] (FISH OIL 09 daily. Medical ORAL) Branch BIOTIN ORAL Yes Take by Uni vers 6-07 mouth. ity of 11:23: [place] [address] Medical Branch FOLIC ACID Yes Take by Univ ers ORAL 6-07 mouth ity of 11:23: daily. [place] [address] Medical Branch MULTIVIT Yes [facility] &MINERALS/F 6-07 mouth. ity of ERROUS FUM 11:23: [place] ([facility] 09 Medical VITAMIN Branch ORAL) METHYLCELLU 0 Yes Univer s LOSE (FIBER 6-07 ity of THERAPY 11:23: [facility]) Medical Branch DOCUSATE Yes Take by [facility] SODIUM 6-07 mouth. ity of (COLACE [...] 6- mouth ity of EXTRACT 11:23: daily. [place] (CRANBERRY 09 Medical ORAL) Branch CALCIUM Yes Take by [facility] ORAL 6 mouth ity of 11:23: daily. [place] [facility] DOCOSAHEXAN Yes 1000mg Take 1,000 [facility] OIC 6-07 mg by ity of ACID/EPA 11:23: mouth [place] (FISH OIL 09 daily. Medical ORAL) Branch BIOTIN ORAL Yes Take by Uni vers 6- mouth. ity of 11:23: [place] [facility] FOLIC ACID Yes Take by Univ ers ORAL 6 mouth ity of 11:58: daily. [place] [address] Medical Branch MULTIVIT Yes Take by [facility] s &MINERALS/F 6- mouth. ity of ERROUS FUM 11:58: [place] (MULTI 16 Medical VITAMIN Branch ORAL) METHYLCELLU Yes [facility] ([facility] 6- ity of THERAPY 11:58: [place] MIS) 16 Medical Branch DOCUSATE Yes Take by Univer s SODIUM 6-01 mouth. ity of (COLACE 11:58: [place] ORAL) 16 Medical Branch vitamin C Yes 1000mg Take 1,000 [facility] with derrell 6-01 mg by ity of hips 11:58: mouth [place] (VITAMIN C) 16 daily. Medica l 1,000 mg Branch tablet cholecalcif Yes 1000U Take 1,000 [facility] edmar, 6-01 Units by ity of vitamin D3, 11:58: mouth [place] (VITAMIN 16 daily. Medical D3) 1,000 Branch unit tablet CRANBERRY 0 Yes Take by Unive rs FRUIT 6- mouth ity of EXTRACT 11:58: daily. [place] (CRANBERRY 16 Medical ORAL) Branch CALCIUM Yes [...] [place] 16 Medical Branch metformin 2021-0 Yes [id number] 500mg Take 1 U nivers ER 500 mg 5-31 tablet by ity o f 24 hr 00:00: mouth [place] tablet 00 daily with Medical breakfast. Branch STOP REGULAR METFORMIN. metformin 2021-0 Yes [id number] 500mg Take 1 U nivers ER 500 mg 5-31 tablet by ity o f 24 hr 00:00: mouth [place] tablet 00 daily with Medical breakfast. Branch STOP REGULAR METFORMIN. metformin 2021-0 Yes [id number] 500mg Take 1 U nivers ER 500 mg 5-31 tablet by ity o f 24 hr 00:00: mouth [place] tablet 00 daily with Medical breakfast. Branch STOP REGULAR METFORMIN. metformin 2021-0 Yes [id number] 500mg Take 1 U nivers ER 500 mg 5-31 tablet by ity o f 24 hr 00:00: mouth [place] tablet 00 daily with Medical breakfast. Branch STOP REGULAR METFORMIN. metformin 0 Yes [id number] 500mg Take 1 U nivers ER 500 mg 5-31 tablet by ity o f 24 hr 00:00: mouth [place] tablet 00 daily with Medical breakfast. Branch STOP REGULAR METFORMIN. metformin 2021-0 Yes [id number] 500mg Take 1 U nivers ER 500 mg 5-31 tablet by ity o f 24 hr 00:00: mouth [place] tablet 00 daily with Medical breakfast. Branch STOP REGULAR METFORMIN. metformin 2021-0 Yes [id number] 500mg Take 1 U nivers ER 500 mg 5-31 tablet by ity o f 24 hr 00:00: mouth [place] tablet 00 daily with Medical breakfast. Branch STOP REGULAR METFORMIN. metformin 2021-0 Yes [id number] 500mg Take 1 U nivers ER 500 mg 5-31 tablet by ity o f 24 hr 00:00: mouth [place] tablet 00 daily with Medical breakfast. Branch STOP REGULAR METFORMIN. metformin 2021-0 Yes [id number] 500mg Take 1 U nivers ER 500 mg 5-31 tablet by ity o f 24 hr 00:00: mouth [place] tablet 00 daily with Medical breakfast. Branch STOP REGULAR METFORMIN. metformin 2021-0 Yes [id number] 500mg Take 1 U nivers ER 500 mg 5-31 tablet by ity o f 24 hr 00:00: mouth [place] tablet 00 daily with Medical breakfast. Branch STOP REGULAR METFORMIN. metformin 2021-0 Yes [id number] 500mg Take 1 U nivers ER 500 mg 5-31 tablet by ity o f 24 hr 00:00: mouth [place] tablet 00 daily with Medical breakfast. Branch STOP REGULAR METFORMIN. metformin 2021-0 Yes [id number] 500mg Take 1 U nivers ER 500 mg 5-31 tablet by ity o f 24 hr 00:00: mouth [place] tablet 00 daily with Medical breakfast. Branch STOP REGULAR METFORMIN. metformin 2021-0 Yes [id number] 500mg Take 1 U nivers ER 500 mg 5-31 tablet by ity o f 24 hr 00:00: mouth [place] tablet 00 daily with Medical breakfast. Branch STOP REGULAR METFORMIN. metformin 2021-0 Yes [id number] 500mg Take 1 U nivers ER 500 mg 5-31 tablet by ity o f 24 hr 00:00: mouth [place] tablet 00 daily with Medical breakfast. Branch STOP REGULAR METFORMIN. metformin 2021-0 Yes [id number] 500mg Take 1 U nivers ER 500 mg 5-31 tablet by ity o f 24 hr 00:00: mouth [place] tablet 00 daily with Medical breakfast. Branch STOP REGULAR METFORMIN. metformin 2021-0 Yes [id number] 500mg Take 1 U nivers ER 500 mg 5-31 tablet by ity o f 24 hr 00:00: mouth [place] tablet 00 daily with Medical breakfast. Branch STOP REGULAR METFORMIN. metformin 2021-0 Yes [id number] 500mg Take 1 U nivers ER 500 mg 5-31 tablet by ity o f 24 hr 00:00: mouth [place] tablet 00 daily with Medical breakfast. Branch STOP REGULAR METFORMIN. metformin 2021-0 Yes [id number] 500mg Take 1 U nivers ER 500 mg 5-31 tablet by ity o f 24 hr 00:00: mouth [place] tablet 00 daily with Medical breakfast. Branch STOP REGULAR METFORMIN. metformin 2021-0 Yes [id number] 500mg Take 1 U nivers ER 500 mg 5-31 tablet by ity o f 24 hr 00:00: mouth [place] tablet 00 daily with Medical breakfast. Branch STOP REGULAR METFORMIN. metformin 2021-0 Yes [id number] 500mg Take 1 U nivers ER 500 mg 5-31 tablet by ity o f 24 hr 00:00: mouth [place] tablet 00 daily with Medical breakfast. Branch STOP REGULAR METFORMIN. metformin 2021-0 Yes [id number] 500mg Take 1 U nivers ER 500 mg 5-31 tablet by ity o f 24 hr 00:00: mouth [place] tablet 00 daily with Medical breakfast. Branch STOP REGULAR METFORMIN. metformin 2021-0 Yes [id number] 500mg Take 1 U nivers ER 500 mg 5-31 tablet by ity o f 24 hr 00:00: mouth [place] tablet 00 daily with Medical breakfast. Branch STOP REGULAR METFORMIN. metformin 2021-0 Yes [id number] 500mg Take 1 U nivers ER 500 mg 5-31 tablet by ity o f 24 hr 00:00: mouth [place] tablet 00 daily with Medical breakfast. Branch STOP REGULAR METFORMIN. metformin 2021-0 Yes [id number] 500mg Take 1 U nivers ER 500 mg 5-31 tablet by ity o f 24 hr 00:00: mouth [place] tablet 00 daily with Medical breakfast. Branch STOP REGULAR METFORMIN. metformin 2021-0 Yes [id number] 500mg Take 1 U nivers ER 500 mg 5-31 tablet by ity o f 24 hr 00:00: mouth [place] tablet 00 daily with Medical breakfast. Branch STOP REGULAR METFORMIN. metformin 2021-0 Yes [id number] 500mg Take 1 U nivers ER 500 mg 5-31 tablet by ity o f 24 hr 00:00: mouth [place] tablet 00 daily with Medical breakfast. Branch STOP REGULAR METFORMIN. metformin 2021-0 Yes [id number] 500mg Take 1 U nivers ER 500 mg 5-31 tablet by ity o f 24 hr 00:00: mouth [place] tablet 00 daily with Medical breakfast. Branch STOP REGULAR METFORMIN. metformin 2021-0 Yes [id number] 500mg Take 1 U nivers ER 500 mg 5-31 tablet by ity o f 24 hr 00:00: mouth [place] tablet 00 daily with Medical breakfast. Branch STOP REGULAR METFORMIN. metformin 2021-0 Yes [id number] 500mg Take 1 U nivers ER 500 mg 5-31 tablet by ity o f 24 hr 00:00: mouth [place] tablet 00 daily with Medical breakfast. Branch STOP REGULAR METFORMIN. metformin 2021-0 Yes [id number] 500mg Take 1 U nivers ER 500 mg 5-31 tablet by ity o f 24 hr 00:00: mouth [place] tablet 00 daily with Medical breakfast. Branch STOP REGULAR METFORMIN. metformin 2021-0 Yes [id number] 500mg Take 1 U nivers ER 500 mg 5-31 tablet by ity o f 24 hr 00:00: mouth [place] tablet 00 daily with Medical breakfast. Branch STOP REGULAR METFORMIN. metformin 2021-0 Yes [id number] 500mg Take 1 U nivers ER 500 mg 5-31 tablet by ity o f 24 hr 00:00: mouth [place] tablet 00 daily with Medical breakfast. Branch STOP REGULAR METFORMIN. metformin 2021-0 Yes [id number] 500mg Take 1 U nivers ER 500 mg 5-31 tablet by ity o f 24 hr 00:00: mouth [place] tablet 00 daily with Medical breakfast. Branch STOP REGULAR METFORMIN. metformin 2021-0 Yes [id number] 500mg Take 1 U nivers ER 500 mg 5-31 tablet by ity o f 24 hr 00:00: mouth [place] tablet 00 daily with Medical breakfast. Branch STOP REGULAR METFORMIN. metformin 2021-0 Yes [id number] 500mg Take 1 U nivers ER 500 mg 5-31 tablet by ity o f 24 hr 00:00: mouth [place] tablet 00 daily with Medical breakfast. Branch STOP REGULAR METFORMIN. metformin 2021-0 Yes [id number] 500mg Take 1 U nivers ER 500 mg 5-31 tablet by ity o f 24 hr 00:00: mouth [place] tablet 00 daily with Medical breakfast. Branch STOP REGULAR METFORMIN. metformin 2021-0 Yes [id number] 500mg Take 1 U nivers ER 500 mg 5-31 tablet by ity o f 24 hr 00:00: mouth [place] tablet 00 daily with Medical breakfast. Branch STOP REGULAR METFORMIN. metformin 2021-0 Yes [id number] 500mg Take 1 U nivers ER 500 mg 5-31 tablet by ity o f 24 hr 00:00: mouth [place] tablet 00 daily with Medical breakfast. Branch STOP REGULAR METFORMIN. metformin 2021-0 Yes [id number] 500mg Take 1 U nivers ER 500 mg 5-31 tablet by ity o f 24 hr 00:00: mouth [place] tablet 00 daily with Medical breakfast. Branch STOP REGULAR METFORMIN. metformin 2021-0 Yes [id number] 500mg Take 1 U nivers ER 500 mg 5-31 tablet by ity o f 24 hr 00:00: mouth [place] tablet 00 daily with Medical breakfast. Branch STOP REGULAR METFORMIN. metformin 2021-0 Yes [id number] 500mg Take 1 U nivers ER 500 mg 5-31 tablet by ity o f 24 hr 00:00: mouth [place] tablet 00 daily with Medical breakfast. Branch STOP REGULAR METFORMIN. metformin 2021-0 Yes [id number] 500mg Take 1 U nivers ER 500 mg 5-31 tablet by ity o f 24 hr 00:00: mouth [place] tablet 00 daily with Medical breakfast. Branch STOP REGULAR METFORMIN. metformin 2021-0 Yes [id number] 500mg Take 1 U nivers ER 500 mg 5-31 tablet by ity o f 24 hr 00:00: mouth [place] tablet 00 daily with Medical breakfast. Branch STOP REGULAR METFORMIN. metformin 2021-0 Yes [id number] 500mg Take 1 U nivers ER 500 mg 5-31 tablet by ity o f 24 hr 00:00: mouth [place] tablet 00 daily with Medical breakfast. Branch STOP REGULAR METFORMIN. metformin 2021-0 Yes [id number] 500mg Take 1 U nivers ER 500 mg 5-31 tablet by ity o f 24 hr 00:00: mouth [place] tablet 00 daily with Medical breakfast. Branch STOP REGULAR METFORMIN. metformin 2021-0 Yes [id number] 500mg Take 1 U nivers ER 500 mg 5-31 tablet by ity o f 24 hr 00:00: mouth [place] tablet 00 daily with Medical breakfast. Branch STOP REGULAR METFORMIN. metformin 2021-0 Yes [id number] 500mg Take 1 U nivers ER 500 mg 5-31 tablet by ity o f 24 hr 00:00: mouth [place] tablet 00 daily with Medical breakfast. Branch STOP REGULAR METFORMIN. metformin 2021-0 Yes [id number] 500mg Take 1 U nivers ER 500 mg 5-31 tablet by ity o f 24 hr 00:00: mouth [place] tablet 00 daily with Medical breakfast. Branch STOP REGULAR METFORMIN. metformin 2021-0 2022- No [id number] 500mg Take 1 [facility] ER 500 mg 5-31 10-13 tablet by ity of 24 hr 00:00: 00:00 mouth [place] tablet 00 :00 daily with Medical breakfast. Branch STOP REGULAR METFORMIN. ibuprofen 2021-0 Yes [id number] 600mg Take 1 [facility] 600 mg 5-19 [id number] tablet by ity of tablet 00:00: mouth [place] 00 every 6 Medical (six) Branch hours as needed for Pain (scale 4-6). ibuprofen 2022-0 Yes [id number] 600mg Take 1 [facility] 600 mg 5-19 [id number] tablet by ity of tablet 00:00: mouth [place] 00 every 6 Medical (six) Branch hours as needed for Pain (scale 4-6). ibuprofen 2022-0 Yes [id number] 600mg Take 1 [facility] 600 mg 5-19 [id number] tablet by ity of tablet 00:00: mouth [place] 00 every 6 Medical (six) Branch hours as needed for Pain (scale 4-6). ibuprofen 2022-0 Yes [id number] 600mg Take 1 [facility] 600 mg 5-19 [id number] tablet by ity of tablet 00:00: mouth [place] 00 every 6 Medical (six) Branch hours as needed for Pain (scale 4-6). ibuprofen 2022-0 Yes [id number] 600mg Take 1 [facility] 600 mg 5-19 [id number] tablet by ity of tablet 00:00: mouth [place] 00 every 6 Medical (six) Branch hours as needed for Pain (scale 4-6). ibuprofen 2022-0 Yes [id number] 600mg Take 1 [facility] 600 mg 5-19 [id number] tablet by ity of tablet 00:00: mouth [place] 00 every 6 Medical (six) Branch hours as needed for Pain (scale 4-6). ibuprofen 2022-0 Yes [id number] 600mg Take 1 [facility] 600 mg 5-19 [id number] tablet by ity of tablet 00:00: mouth [place] 00 every 6 Medical (six) Branch hours as needed for Pain (scale 4-6). ibuprofen 2022-0 Yes [id number] 600mg Take 1 [facility] 600 mg 5-19 [id number] tablet by ity of tablet 00:00: mouth [place] 00 every 6 Medical (six) Branch hours as needed for Pain (scale 4-6). ibuprofen 2022-0 Yes [id number] 600mg Take 1 [facility] 600 mg 5-19 [id number] tablet by ity of tablet 00:00: mouth [place] 00 every 6 Medical (six) Branch hours as needed for Pain (scale 4-6). ibuprofen 2022-0 Yes [id number] 600mg Take 1 [facility] 600 mg 5-19 [id number] tablet by ity of tablet 00:00: mouth [place] 00 every 6 Medical (six) Branch hours as needed for Pain (scale 4-6). ibuprofen 2022-0 Yes [id number] 600mg Take 1 [facility] 600 mg 5-19 [id number] tablet by ity of tablet 00:00: mouth [place] 00 every 6 Medical (six) Branch hours as needed for Pain (scale 4-6). ibuprofen 2022-0 Yes [id number] 600mg Take 1 [facility] 600 mg 5-19 [id number] tablet by ity of tablet 00:00: mouth [place] 00 every 6 Medical (six) Branch hours as needed for Pain (scale 4-6). ibuprofen 2022-0 Yes [id number] 600mg Take 1 [facility] 600 mg 5-19 [id number] tablet by ity of tablet 00:00: mouth [place] 00 every 6 Medical (six) Branch hours as needed for Pain (scale 4-6). ibuprofen 2022-0 Yes [id number] 600mg Take 1 [facility] 600 mg 5-19 [id number] tablet by ity of tablet 00:00: mouth [place] 00 every 6 Medical (six) Branch hours as needed for Pain (scale 4-6). ibuprofen 2022-0 Yes [id number] 600mg Take 1 [facility] 600 mg 5-19 [id number] tablet by ity of tablet 00:00: mouth [place] 00 every 6 Medical (six) Branch hours as needed for Pain (scale 4-6). ibuprofen 2022-0 Yes [id number] 600mg Take 1 [facility] 600 mg 5-19 [id number] tablet by ity of tablet 00:00: mouth [place] 00 every 6 Medical (six) Branch hours as needed for Pain (scale 4-6). ibuprofen 2022-0 Yes [id number] 600mg Take 1 [facility] 600 mg 5-19 [id number] tablet by ity of tablet 00:00: mouth [place] 00 every 6 Medical (six) Branch hours as needed for Pain (scale 4-6). ibuprofen 2022-0 Yes [id number] 600mg Take 1 [facility] 600 mg 5-19 [id number] tablet by ity of tablet 00:00: mouth [place] 00 every 6 Medical (six) Branch hours as needed for Pain (scale 4-6). ibuprofen 2022-0 Yes [id number] 600mg Take 1 [facility] 600 mg 5-19 [id number] tablet by ity of tablet 00:00: mouth [place] 00 every 6 Medical (six) Branch hours as needed for Pain (scale 4-6). ibuprofen 2022-0 Yes [id number] 600mg Take 1 [facility] 600 mg 5-19 [id number] tablet by ity of tablet 00:00: mouth [place] 00 every 6 Medical (six) Branch hours as needed for Pain (scale 4-6). ibuprofen 2022-0 Yes [id number] 600mg Take 1 [facility] 600 mg 5-19 [id number] tablet by ity of tablet 00:00: mouth [place] 00 every 6 Medical (six) Branch hours as needed for Pain (scale 4-6). ibuprofen 2022-0 Yes [id number] 600mg Take 1 [facility] 600 mg 5-19 [id number] tablet by ity of tablet 00:00: mouth [place] 00 every 6 Medical (six) Branch hours as needed for Pain (scale 4-6). ibuprofen 2022-0 Yes [id number] 600mg Take 1 [facility] 600 mg 5-19 [id number] tablet by ity of tablet 00:00: mouth [place] 00 every 6 Medical (six) Branch hours as needed for Pain (scale 4-6). ibuprofen 2022-0 Yes [id number] 600mg Take 1 [facility] 600 mg 5-19 [id number] tablet by ity of tablet 00:00: mouth [place] 00 every 6 Medical (six) Branch hours as needed for Pain (scale 4-6). ibuprofen 2022-0 Yes [id number] 600mg Take 1 [facility] 600 mg 5-19 [id number] tablet by ity of tablet 00:00: mouth [place] 00 every 6 Medical (six) Branch hours as needed for Pain (scale 4-6). ibuprofen 2022-0 Yes [id number] 600mg Take 1 [facility] 600 mg 5-19 [id number] tablet by ity of tablet 00:00: mouth [place] 00 every 6 Medical (six) Branch hours as needed for Pain (scale 4-6). ibuprofen 2022-0 Yes [id number] 600mg Take 1 [facility] 600 mg 5-19 [id number] tablet by ity of tablet 00:00: mouth [place] 00 every 6 Medical (six) Branch hours as needed for Pain (scale 4-6). ibuprofen 2022-0 Yes [id number] 600mg Take 1 [facility] 600 mg 5-19 [id number] tablet by ity of tablet 00:00: mouth [place] 00 every 6 Medical (six) Branch hours as needed for Pain (scale 4-6). ibuprofen 2022-0 Yes [id number] 600mg Take 1 [facility] 600 mg 5-19 [id number] tablet by ity of tablet 00:00: mouth [place] 00 every 6 Medical (six) Branch hours as needed for Pain (scale 4-6). ibuprofen 2022-0 Yes [id number] 600mg Take 1 [facility] 600 mg 5-19 [id number] tablet by ity of tablet 00:00: mouth [place] 00 every 6 Medical (six) Branch hours as needed for Pain (scale 4-6). ibuprofen 2-0 Yes [id number] 600mg Take 1 [facility] 600 mg 5-19 [id number] tablet by ity of tablet 00:00: mouth [place] 00 every 6 Medical (six) Branch hours as needed for Pain (scale 4-6). ibuprofen 2021-0 Yes [id number] 600mg Take 1 [facility] 600 mg 5-19 [id number] tablet by ity of tablet 00:00: mouth [place] 00 every 6 Medical (six) Branch hours as needed for Pain (scale 4-6). ibuprofen 2021-0 Yes [id number] 600mg Take 1 [facility] 600 mg 5-19 [id number] tablet by ity of tablet 00:00: mouth [place] 00 every 6 Medical (six) Branch hours as needed for Pain (scale 4-6). ibuprofen 2021-0 Yes [id number] 600mg Take 1 [facility] 600 mg 5-19 [id number] tablet by ity of tablet 00:00: mouth [place] 00 every 6 Medical (six) Branch hours as needed for Pain (scale 4-6). ibuprofen 2021-0 Yes [id number] 600mg Take 1 [facility] 600 mg 5-19 [id number] tablet by ity of tablet 00:00: mouth [place] 00 every 6 Medical (six) Branch hours as needed for Pain (scale 4-6). ibuprofen 2021-0 Yes [id number] 600mg Take 1 [facility] 600 mg 5-19 [id number] tablet by ity of tablet 00:00: mouth [place] 00 every 6 Medical (six) Branch hours as needed for Pain (scale 4-6). ibuprofen 2022-0 2022- No [id number] 600mg Take 1 [facility] 600 mg 5-19 - [id number] tablet by ity o f tablet 00:00: 00:00 mouth [place] 00 :00 every 6 Medical (six) Branch hours as needed for Pain (scale 4-6). ibuprofen 2022-0 2022- No [id number] 600mg Take 1 [facility] 600 mg 02-11 [id number] tablet by ity o f tablet 00:00: 00:00 mouth [place] 00 :00 every 6 Medical (six) Branch hours as needed for Pain (scale 4-6). ibuprofen 2021-0 2022- No [id number] 600mg Take 1 [facility] 600 mg 02-11 [id number] tablet by ity o f tablet 00:00: 00:00 mouth [place] 00 :00 every 6 Medical (six) Branch hours as needed for Pain (scale 4-6). topiramate 2021-0 Yes [id number] 50mg Take 2 Univers 25 mg 5-16 tablets by ity of tablet 00:00: mouth [address] [place] [address] (two) Medical times Branch daily. topiramate 2021-0 Yes [id number] 50mg Take 2 [facility] 25 mg 5-16 tablets by ity of tablet 00:00: [address] (two) Medical times Branch daily. topiramate 2021-0 Yes [id number] 50mg Take 2 [facility] 25 mg 5-16 tablets by ity of tablet 00:00: mouth [address] [place] [address] (two) Medical times Branch daily. topiramate 2021-0 Yes [id number] 50mg Take 2 [facility] 25 mg 5-16 tablets by ity of tablet 00:00: [address] (two) Medical times Branch daily. topiramate 2021-0 Yes [id number] 50mg Take 2 [facility] 25 mg 5-16 tablets by ity of tablet 00:00: [address] (two) Medical times Branch daily. topiramate 2021-0 Yes [id number] 50mg Take 2 [facility] 25 mg 5-16 tablets by ity of tablet 00:00: mouth [address] [place] [address] (two) Medical times Branch daily. topiramate 2021-0 Yes [id number] 50mg Take 2 [facility] 25 mg 5-16 tablets by ity of tablet 00:00: mouth [address] [place] [address] (two) Medical times Branch daily. topiramate 2021-0 Yes [id number] 50mg Take 2 [facility] 25 mg 5-16 tablets by ity of tablet 00:00: mouth [address] [place] [address] (two) Medical times Branch daily. topiramate 2021-0 Yes [id number] 50mg Take 2 [facility] 25 mg 5-16 tablets by ity of tablet 00:00: mouth 2 (two) Medical times Branch daily. SUMAtriptan 2-0 Yes [id number] 50mg Take 1 [facility] 50 mg 5-16 tablet by ity of tablet 00:00: mouth as [place] 00 needed for Medical Migraine. Branch topiramate 2-0 Yes [id number] 50mg Take 2 [facility] 25 mg 5-16 tablets by ity of tablet 00:00: mouth 2 (two) Medical times Branch daily. SUMAtriptan 2022-0 Yes [id number] 50mg Take 1 [facility] 50 mg 5-16 tablet by ity of tablet 00:00: mouth as [place] 00 needed for Medical Migraine. Branch topiramate 2-0 Yes [id number] 50mg Take 2 [facility] 25 mg 5-16 tablets by ity of tablet 00:00: mouth 2 (two) Medical times Branch daily. SUMAtriptan 2-0 Yes [id number] 50mg Take 1 [facility] 50 mg 5-16 tablet by ity of tablet 00:00: mouth as [place] 00 needed for Medical Migraine. Branch topiramate 2-0 Yes [id number] 50mg Take 2 [facility] 25 mg 5-16 tablets by ity of tablet 00:00: mouth 2 (two) Medical times Branch daily. SUMAtriptan 2-0 Yes [id number] 50mg Take 1 [facility] 50 mg 5-16 tablet by ity of tablet 00:00: mouth as [place] 00 needed for Medical Migraine. Branch topiramate 2-0 Yes [id number] 50mg Take 2 [facility] 25 mg 5-16 tablets by ity of tablet 00:00: mouth 2 (two) Medical times Branch daily. SUMAtriptan 2-0 Yes [id number] 50mg Take 1 [facility] 50 mg 5-16 tablet by ity of tablet 00:00: mouth as [place] 00 needed for Medical Migraine. Branch topiramate 2022-0 Yes [id number] 50mg Take 2 [facility] 25 mg 5-16 tablets by ity of tablet 00:00: mouth 2 (two) Medical times Branch daily. SUMAtriptan 2022-0 Yes [id number] 50mg Take 1 [facility] 50 mg 5-16 tablet by ity of tablet 00:00: mouth as [place] 00 needed for Medical Migraine. Branch topiramate 2-0 Yes [id number] 50mg Take 2 [facility] 25 mg 5-16 tablets by ity of tablet 00:00: mouth 2 [place] 00 (two) Medical times Branch daily. topiramate 2-0 Yes [id number] 50mg Take 2 [facility] 25 mg 5-16 tablets by ity of tablet 00:00: mouth 2 [place] 00 (two) Medical times Branch daily. topiramate 2-0 Yes [id number] 50mg Take 2 [facility] 25 mg 5-16 tablets by ity of tablet 00:00: mouth 2 [place] 00 (two) Medical times Branch daily. topiramate 2021-0 Yes [id number] 50mg Take 2 [facility] 25 mg 5-16 tablets by ity of tablet 00:00: mouth 2 [place] 00 (two) Medical times Branch daily. topiramate 2021-0 Yes [id number] 50mg Take 2 [facility] 25 mg 5-16 tablets by ity of tablet 00:00: mouth 2 [place] 00 (two) Medical times Branch daily. topiramate 2021-0 Yes [id number] 50mg Take 2 [facility] 25 mg 5-16 tablets by ity of tablet 00:00: mouth 2 [place] 00 (two) Medical times Branch daily. topiramate 2021-0 2022- No [id number] 50mg Take 2 [facility] 25 mg 5-16 09-01 tablets by ity of tablet 00:00: 00:00 mouth 2 [place] 00 :00 (two) Medical times Branch daily. SUMAtriptan 2021-0 2022- No [id number] 50mg Take 1 [facility] 50 mg 5-16 [...] PadM 5-08 Dose to ity of 00:00: [facility](s) [place] 00 before Medical meals. Branch ALCOHOL Yes 1{dose} Apply 1 Univ ers PADS PadM 5-08 Dose to ity of 00:00: [facility]) [place] 00 before Medical meals. Branch ALCOHOL Yes 1{dose} Apply 1 Univ ers PADS PadM 5-08 Dose to ity of 00:00: [facility]) [place] 00 before Medical meals. Branch ALCOHOL Yes 1{dose} Apply 1 Univ ers PADS PadM 5-08 Dose to ity of 00:00: [facility]) [place] 00 before Medical meals. Branch ALCOHOL Yes 1{dose} Apply 1 Univ ers PADS PadM 5-08 Dose to ity of 00:00: [facility]) [place] 00 before Medical meals. Branch ALCOHOL Yes 1{dose} Apply 1 Univ ers PADS PadM 5-08 Dose to ity of 00:00: [facility]) [place] 00 before Medical meals. Mode ALCOHOL Yes 1{dose} Apply 1 Univ ers PADS PadM 5-08 Dose to ity of 00:00: [facility]) [place] 00 before Medical meals. Branch ALCOHOL Yes 1{dose} Apply 1 Univ ers PADS PadM 5-08 Dose to ity of 00:00: [facility]) [place] 00 before Medical meals. Mode ALCOHOL 2021- No 1{dose} Apply 1 Uni vers PADS PadM 5-08 -22 Dose to ity of 00:00: 00:00 [facility]() [place] 00 :00 before Medical meals. Mode ALCOHOL 2021- No 1{dose} Apply 1 Uni vers PADS PadM 5-08 -22 Dose to ity of 00:00: 00:00 [facility]() [place] 00 :00 before Medical meals. Mode ALCOHOL 2021- No 1{dose} Apply 1 Uni vers PADS PadM 5-08 -22 Dose to ity of 00:00: 00:00 [facility]() [place] 00 :00 before Medical meals. Mode pregabalin Yes [id number] 150mg Take 1 [facility] 150 [facility] 4-29 capsule [facility] 00:00: mouth 3 [place] 00 (three) [facility] times [facility] daily. busPIRone 2021-0 Yes [id number] 20mg Take 2 [facility] 10 mg 4-29 tablets by [facility] tablet 00:00: mouth 2 (two) [facility] times [facility] daily. citalopram 2021-0 Yes [id number] 40mg Take 1 [facility] 40 mg 4-29 tablet by [facility] tablet 00:00: mouth daily. [facility] pregabalin 2021-0 Yes [id number] 150mg Take 1 [facility] 150 mg 4-29 capsule by [facility] 00:00: mouth 3 (three) [facility] times [facility] daily. busPIRone 2021-0 Yes [id number] 20mg Take 2 [facility] 10 mg 4-29 tablets by [facility] tablet 00:00: mouth (two) [facility] times [facility] daily. citalopram 2021-0 Yes [id number] 40mg Take 1 [facility] 40 mg 4-29 tablet by [facility] tablet 00:00: mouth daily. [facility] pregabalin 2021-0 Yes [id number] 150mg Take 1 [facility] 150 mg 4-29 capsule by [facility] 00:00: mouth 3 (three) [facility] times [facility] daily. busPIRone 2021-0 Yes [id number] 20mg Take 2 [facility] 10 mg 4-29 tablets by [facility] tablet 00:00: mouth (two) [facility] times [facility] daily. citalopram 2021-0 Yes [id number] 40mg Take 1 [facility] 40 mg 4-29 tablet by [facility] tablet 00:00: mouth daily. [facility] pregabalin 2021-0 Yes [id number] 150mg Take 1 [facility] 150 mg 4-29 capsule by [facility] 00:00: mouth 3 (three) [facility] times [facility] daily. busPIRone 2-0 Yes [id number] 20mg Take 2 [facility] 10 mg 4-29 tablets by [facility] tablet 00:00: mouth 2 (two) [facility] times [facility] daily. citalopram 2-0 Yes [id number] 40mg Take 1 [facility] 40 mg 4-29 tablet by [facility] tablet 00:00: mouth daily. [facility] pregabalin 2021-0 Yes [id number] 150mg Take 1 [facility] 150 mg 4-29 capsule by [facility] 00:00: mouth 3 (three) [facility] times [facility] daily. busPIRone 2021-0 Yes [id number] 20mg Take 2 [facility] 10 mg 4-29 tablets by [facility] tablet 00:00: mouth (two) [facility] times [facility] daily. citalopram 2021-0 Yes [id number] 40mg Take 1 [facility] 40 mg 4-29 tablet by [facility] tablet 00:00: mouth 00 daily. [facility] pregabalin 2021-0 Yes [id number] 150mg Take 1 [facility] 150 mg 4-29 capsule by [facility] 00:00: mouth (three) [facility] times [facility] daily. busPIRone 2021-0 Yes [id number] 20mg Take 2 [facility] 10 mg 4-29 tablets by [facility] tablet 00:00: mouth (two) [facility] times [facility] daily. citalopram 2021-0 Yes [id number] 40mg Take 1 [facility] 40 mg 4-29 tablet by [facility] tablet 00:00: mouth daily. [facility] pregabalin 2021-0 Yes [id number] 150mg Take 1 [facility] 150 mg 4-29 capsule by [facility] 00:00: mouth (three) [facility] times [facility] daily. busPIRone 2021-0 Yes [id number] 20mg Take 2 [facility] 10 mg 4-29 tablets by [facility] tablet 00:00: mouth (two) [facility] times [facility] daily. citalopram 2021-0 Yes [id number] 40mg Take 1 [facility] 40 mg 4-29 tablet by [facility] tablet 00:00: mouth 00 daily. [facility] pregabalin 2021-0 Yes [id number] 150mg Take 1 [facility] 150 mg 4-29 capsule by [facility] 00:00: mouth 3 (three) [facility] times [facility] daily. busPIRone 2021-0 Yes [id number] 20mg Take 2 [facility] 10 mg 4-29 tablets by [facility] tablet 00:00: mouth (two) [facility] times [facility] daily. citalopram 2021-0 Yes [id number] 40mg Take 1 [facility] 40 mg 4-29 tablet by [facility] tablet 00:00: mouth 00 daily. [facility] pregabalin 2021-0 Yes [id number] 150mg Take 1 [facility] 150 mg 4-29 capsule by [facility] capsule 00:00: mouth 3 (three) [facility] times [facility] daily. busPIRone 2021-0 Yes [id number] 20mg Take 2 [facility] 10 mg 4-29 tablets by [facility] tablet 00:00: mouth (two) [facility] times [facility] daily. citalopram 2021-0 Yes [id number] 40mg Take 1 [facility] 40 mg 4-29 tablet by [facility] tablet 00:00: mouth 00 daily. [facility] pregabalin 2021-0 Yes [id number] 150mg Take 1 [facility] 150 mg 4-29 capsule by [facility] 00:00: mouth 3 (three) [facility] times [facility] daily. busPIRone 2021-0 Yes [id number] 20mg Take 2 [facility] 10 mg 4-29 tablets by [facility] tablet 00:00: mouth (two) [facility] times [facility] daily. citalopram 2021-0 Yes [id number] 40mg Take 1 [facility] 40 mg 4-29 tablet by [facility] tablet 00:00: mouth daily. [facility] pregabalin 2021-0 Yes [id number] 150mg Take 1 [facility] 150 mg 4-29 capsule by [facility] 00:00: mouth (three) [facility] times [facility] daily. busPIRone 2021-0 Yes [id number] 20mg Take 2 [facility] 10 mg 4-29 tablets by [facility] tablet 00:00: mouth (two) [facility] times [facility] daily. citalopram 2021-0 Yes [id number] 40mg Take 1 [facility] 40 mg 4-29 tablet by [facility] tablet 00:00: mouth 00 daily. [facility] pregabalin 2021-0 Yes [id number] 150mg Take 1 [facility] 150 mg 4-29 capsule by [facility] capsule 00:00: mouth 3 (three) [facility] times [facility] daily. busPIRone 2021-0 Yes [id number] 20mg Take 2 [facility] 10 mg 4-29 tablets by [facility] tablet 00:00: mouth 2 [place] 00 (two) [facility] times [facility] daily. citalopram 2021-0 Yes [id number] 40mg Take 1 [facility] 40 mg 4-29 tablet by [facility] tablet 00:00: mouth 00 daily. [facility] pregabalin 2021-0 Yes [id number] 150mg Take 1 [facility] 150 mg 4-29 capsule by [facility] capsule 00:00: mouth 3 (three) [facility] times [facility] daily. busPIRone 2021-0 Yes [id number] 20mg Take 2 [facility] 10 mg 4-29 tablets by [facility] tablet 00:00: mouth (two) [facility] times [facility] daily. citalopram 2021-0 Yes [id number] 40mg Take 1 [facility] 40 mg 4-29 tablet by [facility] tablet 00:00: mouth 00 daily. [facility] pregabalin 2021-0 Yes [id number] 150mg Take 1 [facility] 150 mg 4-29 capsule by [facility] capsule 00:00: mouth (three) [facility] times [facility] daily. busPIRone 2021-0 Yes [id number] 20mg Take 2 [facility] 10 mg 4-29 tablets by [facility] tablet 00:00: mouth (two) [facility] times [facility] daily. citalopram 2021-0 Yes [id number] 40mg Take 1 [facility] 40 mg 4-29 tablet by [facility] tablet 00:00: mouth daily. [facility] pregabalin 2021-0 Yes [id number] 150mg Take 1 [facility] 150 mg 4-29 capsule by [facility] capsule 00:00: mouth (three) [facility] times [facility] daily. busPIRone 2-0 Yes [id number] 20mg Take 2 [facility] 10 mg 4-29 tablets by [facility] tablet 00:00: mouth (two) [facility] times [facility] daily. citalopram 2-0 Yes [id number] 40mg Take 1 [facility] 40 mg 4-29 tablet by [facility] tablet 00:00: mouth 00 daily. [facility] pregabalin 2021-0 Yes [id number] 150mg Take 1 [facility] 150 mg 4-29 capsule by [facility] capsule 00:00: mouth 3 (three) [facility] times [facility] daily. busPIRone 2022-0 Yes [id number] 20mg Take 2 [facility] 10 mg 4-29 tablets by [facility] tablet 00:00: mouth (two) [facility] times [facility] daily. citalopram 2021-0 Yes [id number] 40mg Take 1 [facility] 40 mg 4-29 tablet by [facility] tablet 00:00: mouth 00 daily. [facility] pregabalin 2021-0 Yes [id number] 150mg Take 1 [facility] 150 mg 4-29 capsule by [facility] capsule 00:00: mouth 3 (three) [facility] times [facility] daily. busPIRone 2021-0 Yes [id number] 20mg Take 2 [facility] 10 mg 4-29 tablets by [facility] tablet 00:00: mouth (two) [facility] times [facility] daily. citalopram 2021-0 Yes [id number] 40mg Take 1 [facility] 40 mg 4-29 tablet by [facility] tablet 00:00: mouth daily. [facility] pregabalin 2021-0 Yes [id number] 150mg Take 1 [facility] 150 mg 4-29 capsule by [facility] 00:00: mouth (three) [facility] times [facility] daily. busPIRone 2021-0 Yes [id number] 20mg Take 2 [facility] 10 mg 4-29 tablets by [facility] tablet 00:00: mouth (two) [facility] times [facility] daily. citalopram 2021-0 Yes [id number] 40mg Take 1 [facility] 40 mg 4-29 tablet by [facility] tablet 00:00: mouth daily. [facility] pregabalin 2021-0 Yes [id number] 150mg Take 1 [facility] 150 mg 4-29 capsule by [facility] capsule 00:00: mouth 3 (three) [facility] times [facility] daily. busPIRone 2021-0 Yes [id number] 20mg Take 2 [facility] 10 mg 4-29 tablets by [facility] tablet 00:00: mouth (two) [facility] times [facility] daily. citalopram 2021-0 Yes [id number] 40mg Take 1 [facility] 40 mg 4-29 tablet by [facility] tablet 00:00: mouth 00 daily. [facility] pregabalin 2021-0 Yes [id number] 150mg Take 1 [facility] 150 mg 4-29 capsule by [facility] capsule 00:00: mouth 3 (three) [facility] times [facility] daily. busPIRone 2021-0 Yes [id number] 20mg Take 2 [facility] 10 mg 4-29 tablets by [facility] tablet 00:00: mouth (two) [facility] times [facility] daily. citalopram 2021-0 Yes [id number] 40mg Take 1 [facility] 40 mg 4-29 tablet by [facility] tablet 00:00: mouth 00 daily. [facility] pregabalin 2021-0 Yes [id number] 150mg Take 1 [facility] 150 mg 4-29 capsule by [facility] capsule 00:00: mouth (three) [facility] times [facility] daily. busPIRone 2021-0 Yes [id number] 20mg Take 2 [facility] 10 mg 4-29 tablets by [facility] tablet 00:00: mouth (two) [facility] times [facility] daily. citalopram 2021-0 Yes [id number] 40mg Take 1 [facility] 40 mg 4-29 tablet by [facility] tablet 00:00: mouth daily. [facility] pregabalin 2021-0 Yes [id number] 150mg Take 1 [facility] 150 mg 4-29 capsule by [facility] 00:00: mouth (three) [facility] times [facility] daily. busPIRone 2021-0 Yes [id number] 20mg Take 2 [facility] 10 mg 4-29 tablets by [facility] tablet 00:00: mouth (two) [facility] times [facility] daily. citalopram 2021-0 Yes [id number] 40mg Take 1 [facility] 40 mg 4-29 tablet by [facility] tablet 00:00: mouth daily. [facility] pregabalin 2021-0 Yes [id number] 150mg Take 1 [facility] 150 mg 4-29 capsule by [facility] capsule 00:00: mouth (three) [facility] times [facility] daily. busPIRone 2021-0 Yes [id number] 20mg Take 2 [facility] 10 mg 4-29 tablets by [facility] tablet 00:00: mouth (two) [facility] times [facility] daily. citalopram 2021-0 Yes [id number] 40mg Take 1 [facility] 40 mg 4-29 tablet by [facility] tablet 00:00: mouth 00 daily. [facility] pregabalin 2021-0 Yes [id number] 150mg Take 1 [facility] 150 mg 4-29 capsule by [facility] capsule 00:00: mouth 3 (three) [facility] times [facility] daily. busPIRone 2021-0 Yes [id number] 20mg Take 2 [facility] 10 mg 4-29 tablets by [facility] tablet 00:00: mouth (two) [facility] times [facility] daily. citalopram 2021-0 Yes [id number] 40mg Take 1 [facility] 40 mg 4-29 tablet by [facility] tablet 00:00: mouth 00 daily. [facility] pregabalin 2021-0 Yes [id number] 150mg Take 1 [facility] 150 mg 4-29 capsule by [facility] capsule 00:00: mouth (three) [facility] times [facility] daily. busPIRone 2021-0 Yes [id number] 20mg Take 2 [facility] 10 mg 4-29 tablets by [facility] tablet 00:00: mouth (two) [facility] times [facility] daily. citalopram 2021-0 Yes [id number] 40mg Take 1 [facility] 40 mg 4-29 tablet by [facility] tablet 00:00: mouth daily. [facility] pregabalin 2021-0 Yes [id number] 150mg Take 1 [facility] 150 mg 4-29 capsule by [facility] capsule 00:00: mouth (three) [facility] times [facility] daily. busPIRone 2021-0 Yes [id number] 20mg Take 2 [facility] 10 mg 4-29 tablets by [facility] tablet 00:00: mouth (two) [facility] times [facility] daily. citalopram 2021-0 Yes [id number] 40mg Take 1 [facility] 40 mg 4-29 tablet by [facility] tablet 00:00: mouth daily. [facility] pregabalin 2021-0 Yes [id number] 150mg Take 1 [facility] 150 mg 4-29 capsule by [facility] capsule 00:00: mouth 3 (three) [facility] times [facility] daily. busPIRone 2-0 Yes [id number] 20mg Take 2 [facility] 10 mg 4-29 tablets by [facility] tablet 00:00: mouth (two) [facility] times [facility] daily. citalopram 2021-0 Yes [id number] 40mg Take 1 [facility] 40 mg 4-29 tablet by [facility] tablet 00:00: mouth 00 daily. [facility] pregabalin 2021-0 Yes [id number] 150mg Take 1 [facility] 150 mg 4-29 capsule by [facility] capsule 00:00: mouth (three) [facility] times [facility] daily. busPIRone 2021-0 Yes [id number] 20mg Take 2 [facility] 10 mg 4-29 tablets by [facility] tablet 00:00: mouth (two) [facility] times [facility] daily. citalopram 2021-0 Yes [id number] 40mg Take 1 [facility] 40 mg 4-29 tablet by [facility] tablet 00:00: mouth daily. [facility] pregabalin 2021-0 Yes [id number] 150mg Take 1 [facility] 150 mg 4-29 capsule by [facility] capsule 00:00: mouth (three) [facility] times [facility] daily. busPIRone 2021-0 Yes [id number] 20mg Take 2 [facility] 10 mg 4-29 tablets by [facility] tablet 00:00: mouth (two) [facility] times [facility] daily. citalopram 2021-0 Yes [id number] 40mg Take 1 [facility] 40 mg 4-29 tablet by [facility] tablet 00:00: mouth daily. [facility] pregabalin 2021-0 Yes [id number] 150mg Take 1 [facility] 150 mg 4-29 capsule by [facility] capsule 00:00: mouth (three) [facility] times [facility] daily. busPIRone 2021-0 Yes [id number] 20mg Take 2 [facility] 10 mg 4-29 tablets by [facility] tablet 00:00: mouth (two) [facility] times [facility] daily. citalopram 2021-0 Yes [id number] 40mg Take 1 [facility] 40 mg 4-29 tablet by [facility] tablet 00:00: mouth daily. [facility] pregabalin 2021-0 Yes [id number] 150mg Take 1 [facility] 150 mg 4-29 capsule by [facility] capsule 00:00: mouth (three) [facility] times [facility] daily. busPIRone 2021-0 Yes [id number] 20mg Take 2 [facility] 10 mg 4-29 tablets by [facility] tablet 00:00: mouth (two) [facility] times [facility] daily. citalopram 2021-0 Yes [id number] 40mg Take 1 [facility] 40 mg 4-29 tablet by [facility] tablet 00:00: mouth 00 daily. [facility] pregabalin 2021-0 Yes [id number] 150mg Take 1 [facility] 150 mg 4-29 capsule by [facility] capsule 00:00: mouth 3 (three) [facility] times [facility] daily. busPIRone 2021-0 Yes [id number] 20mg Take 2 [facility] 10 mg 4-29 tablets by [facility] tablet 00:00: mouth (two) [facility] times [facility] daily. citalopram 2021-0 Yes [id number] 40mg Take 1 [facility] 40 mg 4-29 tablet by [facility] tablet 00:00: mouth 00 daily. [facility] pregabalin 2021-0 Yes [id number] 150mg Take 1 [facility] 150 mg 4-29 capsule by [facility] capsule 00:00: mouth (three) [facility] times [facility] daily. busPIRone 2021-0 Yes [id number] 20mg Take 2 [facility] 10 mg 4-29 tablets by [facility] tablet 00:00: mouth (two) [facility] times [facility] daily. citalopram 2021-0 Yes [id number] 40mg Take 1 [facility] 40 mg 4-29 tablet by [facility] tablet 00:00: mouth daily. [facility] pregabalin 2021-0 Yes [id number] 150mg Take 1 [facility] 150 mg 4-29 capsule by [facility] capsule 00:00: mouth (three) [facility] times [facility] daily. busPIRone 2021-0 Yes [id number] 20mg Take 2 [facility] 10 mg 4-29 tablets by [facility] tablet 00:00: mouth (two) [facility] times [facility] daily. citalopram 2021-0 Yes [id number] 40mg Take 1 [facility] 40 mg 4-29 tablet by [facility] tablet 00:00: mouth 00 daily. [facility] pregabalin 2021-0 Yes [id number] 150mg Take 1 [facility] 150 mg 4-29 capsule by [facility] capsule 00:00: mouth 3 (three) [facility] times [facility] daily. busPIRone 2021-0 Yes [id number] 20mg Take 2 [facility] 10 mg 4-29 tablets by [facility] tablet 00:00: mouth 2 (two) [facility] times [facility] daily. citalopram 2021-0 Yes [id number] 40mg Take 1 [facility] 40 mg 4-29 tablet by [facility] tablet 00:00: mouth 00 daily. [facility] pregabalin 2021-0 Yes [id number] 150mg Take 1 [facility] 150 mg 4-29 capsule by [facility] capsule 00:00: mouth 3 (three) [facility] times [facility] daily. busPIRone 2021-0 Yes [id number] 20mg Take 2 [facility] 10 mg 4-29 tablets by [facility] tablet 00:00: mouth (two) [facility] times [facility] daily. citalopram 2021-0 Yes [id number] 40mg Take 1 [facility] 40 mg 4-29 tablet by [facility] tablet 00:00: mouth 00 daily. [facility] pregabalin 2021-0 Yes [id number] 150mg Take 1 [facility] 150 mg 4-29 capsule by [facility] capsule 00:00: mouth 3 (three) [facility] times [facility] daily. busPIRone 2021-0 Yes [id number] 20mg Take 2 [facility] 10 mg 4-29 tablets by [facility] tablet 00:00: mouth (two) [facility] times [facility] daily. citalopram 2021-0 Yes [id number] 40mg Take 1 [facility] 40 mg 4-29 tablet by [facility] tablet 00:00: mouth [place] 00 daily. [facility] citalopram 2021-0 Yes [id number] 40mg Take 1 [facility] 40 mg 4-29 tablet by [facility] tablet 00:00: mouth [place] 00 daily. [facility] citalopram 2021-0 Yes [id number] 40mg Take 1 [facility] 40 mg 4-29 tablet by [facility] tablet 00:00: mouth [place] 00 daily. [facility] citalopram 2021-0 Yes [id number] 40mg Take 1 [facility] 40 mg 4-29 tablet by [facility] tablet 00:00: mouth [place] 00 daily. [facility] citalopram 2021-0 Yes [id number] 40mg Take 1 [facility] 40 mg 4-29 tablet by [facility] tablet 00:00: mouth [place] 00 daily. [facility] citalopram 2021-0 Yes [id number] 40mg Take 1 [facility] 40 mg 4-29 tablet by [facility] tablet 00:00: mouth [place] 00 daily. [facility] citalopram 2021-0 Yes [id number] 40mg Take 1 [facility] 40 mg 4-29 tablet by [facility] tablet 00:00: mouth [place] 00 daily. [facility] citalopram 2021-0 Yes [id number] 40mg Take 1 [facility] 40 mg 4-29 tablet by [facility] tablet 00:00: mouth [place] 00 daily. [facility] pregabalin 2021-0 Yes [id number] 150mg Take 1 [facility] 150 mg 4-29 capsule by [facility] capsule 00:00: mouth 3 00 (three) [facility] times [facility] daily. busPIRone 2021-0 Yes [id number] 20mg Take 2 [facility] 10 mg 4-29 tablets by [facility] tablet 00:00: mouth 2 (two) [facility] times [facility] daily. citalopram 2021-0 Yes [id number] 40mg Take 1 [facility] 40 mg 4-29 tablet by [facility] tablet 00:00: mouth [place] 00 daily. [facility] pregabalin 2021-0 Yes [id number] 150mg Take 1 [facility] 150 mg 4-29 capsule by [facility] capsule 00:00: mouth 3 (three) [facility] times [facility] daily. busPIRone 2021-0 Yes [id number] 20mg Take 2 [facility] 10 mg 4-29 tablets by [facility] tablet 00:00: mouth 2 (two) [facility] times [facility] daily. citalopram 2021-0 Yes [id number] 40mg Take 1 [facility] 40 mg 4-29 tablet by [facility] tablet 00:00: mouth [place] 00 daily. [facility] pregabalin 2021-0 Yes [id number] 150mg Take 1 [facility] 150 mg 4-29 capsule by [facility] capsule 00:00: mouth 3 00 (three) [facility] times [facility] daily. busPIRone 2021-0 Yes [id number] 20mg Take 2 [facility] 10 mg 4-29 tablets by [facility] tablet 00:00: mouth (two) [facility] times [facility] daily. citalopram 2021-0 Yes [id number] 40mg Take 1 [facility] 40 mg 4-29 tablet by [facility] tablet 00:00: mouth 00 daily. [facility] pregabalin 2021-0 Yes [id number] 150mg Take 1 [facility] 150 mg 4-29 capsule by [facility] capsule 00:00: mouth (three) [facility] times [facility] daily. busPIRone 2021-0 Yes [id number] 20mg Take 2 [facility] 10 mg 4-29 tablets by [facility] tablet 00:00: mouth (two) [facility] times [facility] daily. citalopram 2021-0 Yes [id number] 40mg Take 1 [facility] 40 mg 4-29 tablet by [facility] tablet 00:00: mouth daily. [facility] pregabalin 2021-0 Yes [id number] 150mg Take 1 [facility] 150 mg 4-29 capsule by [facility] capsule 00:00: mouth (three) [facility] times [facility] daily. busPIRone 2021-0 Yes [id number] 20mg Take 2 [facility] 10 mg 4-29 tablets by [facility] tablet 00:00: mouth (two) [facility] times [facility] daily. citalopram 2021-0 Yes [id number] 40mg Take 1 [facility] 40 mg 4-29 tablet by [facility] tablet 00:00: mouth daily. [facility] pregabalin 2021-0 Yes [id number] 150mg Take 1 [facility] 150 mg 4-29 capsule by [facility] capsule 00:00: mouth (three) [facility] times [facility] daily. busPIRone 2021-0 Yes [id number] 20mg Take 2 [facility] 10 mg 4-29 tablets by [facility] tablet 00:00: mouth (two) [facility] times [facility] daily. citalopram 2021-0 Yes [id number] 40mg Take 1 [facility] 40 mg 4-29 tablet by [facility] tablet 00:00: mouth 00 daily. [facility] pregabalin 2021-0 Yes [id number] 150mg Take 1 [facility] 150 mg 4-29 capsule by [facility] capsule 00:00: mouth 3 (three) [facility] times [facility] daily. busPIRone 2021-0 Yes [id number] 20mg Take 2 [facility] 10 mg 4-29 tablets by [facility] tablet 00:00: mouth (two) [facility] times [facility] daily. citalopram 2021-0 Yes [id number] 40mg Take 1 [facility] 40 mg 4-29 tablet by [facility] tablet 00:00: mouth daily. [facility] pregabalin 2021-0 Yes [id number] 150mg Take 1 [facility] 150 mg 4-29 capsule by [facility] capsule 00:00: mouth 3 (three) [facility] times [facility] daily. busPIRone 2021-0 Yes [id number] 20mg Take 2 [facility] 10 mg 4-29 tablets by [facility] tablet 00:00: mouth (two) [facility] times [facility] daily. citalopram 2021-0 Yes [id number] 40mg Take 1 [facility] 40 mg 4-29 tablet by [facility] tablet 00:00: mouth daily. [facility] pregabalin 2021-0 Yes [id number] 150mg Take 1 [facility] 150 mg 4-29 capsule by [facility] capsule 00:00: mouth (three) [facility] times [facility] daily. busPIRone 2021-0 Yes [id number] 20mg Take 2 [facility] 10 mg 4-29 tablets by [facility] tablet 00:00: mouth (two) [facility] times [facility] daily. citalopram 2021-0 Yes [id number] 40mg Take 1 [facility] 40 mg 4-29 tablet by [facility] tablet 00:00: mouth daily. [facility] pregabalin 2021-0 Yes [id number] 150mg Take 1 [facility] 150 mg 4-29 capsule by [facility] capsule 00:00: mouth 3 (three) [facility] times [facility] daily. busPIRone 2-0 Yes [id number] 20mg Take 2 [facility] 10 mg 4-29 tablets by [facility] tablet 00:00: mouth (two) [facility] times [facility] daily. citalopram 2-0 Yes [id number] 40mg Take 1 [facility] 40 mg 4-29 tablet by [facility] tablet 00:00: mouth 00 daily. [facility] pregabalin 0 Yes [id number] 150mg Take 1 [facility] 150 mg 4-29 capsule by [facility] capsule 00:00: mouth 3 [place] 00 (three) [facility] times [facility] daily. busPIRone 2021-0 Yes [id number] 20mg Take 2 [facility] 10 mg 4-29 tablets by [facility] tablet 00:00: mouth 2 [place] 00 (two) [facility] times [facility] daily. citalopram 2021-0 Yes [id number] 40mg Take 1 [facility] 40 mg 4-29 tablet by [facility] tablet 00:00: mouth [place] 00 daily. [facility] pregabalin 2021- No [id number] 150mg Take 1 [facility] 150 mg 4-29 10-13 capsule by [facility] capsule 00:00: 00:00 mouth 3 [place] 00 :00 (three) [facility] times [facility] daily. busPIRone 2021-2021- No [id number] 20mg Take 2 [facility] 10 mg 4-29 10-13 tablets by [facility] tablet 00:00: 00:00 mouth 2 [place] 00 :00 (two) [facility] times [facility] daily. pantoprazol Yes [id number] 40mg Take 1 [facility] 40 mg EC 4-04 tablet by [facility] tablet 00:00: mouth [place] 00 daily. [facility] pantoprazol Yes [id number] 40mg Take 1 [facility] 40 mg EC 4-04 tablet by [facility] tablet 00:00: mouth [place] 00 daily. [facility] pantoprazol 0 Yes [id number] 40mg Take 1 [facility] 40 mg EC 4-04 tablet by [facility] tablet 00:00: mouth [place] 00 daily. [facility] pantoprazol 0 Yes [id number] 40mg Take 1 [facility] 40 mg EC 4-04 tablet by [facility] tablet 00:00: mouth [place] 00 daily. [facility] pantoprazol 0 Yes [id number] 40mg Take 1 [facility] 40 mg EC 4-04 tablet by [facility] tablet 00:00: mouth [place] 00 daily. [facility] pantoprazol 0 Yes [id number] 40mg Take 1 [facility] 40 mg EC 4-04 tablet by [facility] tablet 00:00: mouth [place] 00 daily. [facility] pantoprazol Yes [id number] 40mg Take 1 [facility] 40 mg EC 4-04 tablet by [facility] tablet 00:00: mouth [place] 00 daily. [facility] pantoprazol Yes [id number] 40mg Take 1 [facility] 40 mg EC 4-04 tablet by [facility] tablet 00:00: mouth [place] 00 daily. [facility] pantoprazol 2021-0 Yes [id number] 40mg Take 1 [facility] 40 mg EC 4-04 tablet by [facility] tablet 00:00: mouth [place] 00 daily. [facility] pantoprazol Yes [id number] 40mg Take 1 [facility] 40 mg EC 4-04 tablet by [facility] tablet 00:00: mouth [place] 00 daily. [facility] pantoprazol Yes [id number] 40mg Take 1 [facility] 40 mg EC 4-04 tablet by [facility] tablet 00:00: mouth [place] 00 daily. [facility] pantoprazol Yes [id number] 40mg Take 1 [facility] 40 mg EC 4-04 tablet by [facility] tablet 00:00: mouth [place] 00 daily. [facility] pantoprazol Yes [id number] 40mg Take 1 [facility] 40 mg EC 4-04 tablet by [facility] tablet 00:00: mouth [place] 00 daily. [facility] pantoprazol Yes [id number] 40mg Take 1 [facility] 40 mg EC 4-04 tablet by [facility] tablet 00:00: mouth [place] 00 daily. [facility] pantoprazol 2021- Yes [id number] 40mg Take 1 [facility] 40 mg EC 4-04 tablet by [facility] tablet 00:00: mouth [place] 00 daily. [facility] pantoprazol 2021-0 Yes [id number] 40mg Take 1 [facility] 40 mg EC 4-04 tablet by [facility] tablet 00:00: mouth [place] 00 daily. [facility] pantoprazol 2021- Yes [id number] 40mg Take 1 [facility] 40 mg EC 4-04 tablet by [facility] tablet 00:00: mouth [place] 00 daily. [facility] pantoprazol 2021- Yes [id number] 40mg Take 1 [facility] 40 mg EC 4-04 tablet by [facility] tablet 00:00: mouth [place] 00 daily. [facility] pantoprazol 2021-0 Yes [id number] 40mg Take 1 [facility] 40 mg EC 4-04 tablet by [facility] tablet 00:00: mouth [place] 00 daily. [facility] pantoprazol 0 Yes [id number] 40mg Take 1 [facility] 40 mg EC 4-04 tablet by [facility] tablet 00:00: mouth [place] 00 daily. [facility] pantoprazol 0 Yes [id number] 40mg Take 1 [facility] 40 mg EC 4-04 tablet by [facility] tablet 00:00: mouth [place] 00 daily. [facility] pantoprazol 0 Yes [id number] 40mg Take 1 [facility] 40 mg EC 4-04 tablet by [facility] tablet 00:00: mouth [place] 00 daily. [facility] pantoprazol 0 Yes [id number] 40mg Take 1 [facility] 40 mg EC 4-04 tablet by [facility] tablet 00:00: mouth [place] 00 daily. [facility] pantoprazol 0 Yes [id number] 40mg Take 1 [facility] 40 mg EC 4-04 tablet by [facility] tablet 00:00: mouth [place] 00 daily. [facility] pantoprazol Yes [id number] 40mg Take 1 [facility] 40 mg EC 4-04 tablet by [facility] tablet 00:00: mouth [place] 00 daily. [facility] pantoprazol 0 Yes [id number] 40mg Take 1 [facility] 40 mg EC 4-04 tablet by [facility] tablet 00:00: mouth [place] 00 daily. [facility] pantoprazol 0 Yes [id number] 40mg Take 1 [facility] 40 mg EC 4-04 tablet by [facility] tablet 00:00: mouth [place] 00 daily. [facility] pantoprazol 2021-0 Yes [id number] 40mg Take 1 [facility] 40 mg EC 4-04 tablet by [facility]y of tablet 00:00: mouth [place] 00 daily. [facility] pantoprazol 0 Yes [id number] 40mg Take 1 [facility] 40 mg EC 4-04 tablet by [facility]y of tablet 00:00: mouth [place] 00 daily. [facility] pantoprazol 0 Yes [id number] 40mg Take 1 [facility] 40 mg EC 4-04 tablet by ity of tablet 00:00: mouth [place] 00 daily. [facility] pantoprazol 0 2021- No [id number] 40mg Take 1 [facility] 40 mg EC 12-28 tablet by ity of tablet 00:00: 00:00 mouth [place] 00 :00 daily. [facility] pantoprazol 2021-0 2022- No [id number] 40mg Take 1 [facility] e 40 mg EC 12-28 tablet by ity of tablet 00:00: 00:00 mouth [place] 00 :00 daily. [facility] Blood-Gluco 2-0 Yes [id number] Use twice [facility] se Meter 3-08 a day for ity of (ONETOUCH 00:00: [place] VERIO FLEX E11.65 Medical START) [facility] Blood-Gluco 2-0 Yes [id number] Use twice [facility] se [facility] 3-08 a day for ity of (ONETOUCH 00:00: [place] VERIO FLEX E11.65 Medical START) [facility] Blood-Gluco 2-0 Yes [id number] Use twice [facility] se [facility] 3-08 a day for ity of (ONETOUCH 00:00: [place] VERIO FLEX E11.65 Medical START) [facility] Blood-Gluco 2-0 Yes [id number] Use twice [facility] se [facility] 3-08 a day for ity of (ONETOUCH 00:00: ICD [place] VERIO FLEX E11.65 Medical START) [facility] Blood-Gluco 2-0 Yes [id number] Use twice [facility] se [facility] 3-08 a day for ity of (ONETOUCH 00:00: [place] VERIO FLEX E11.65 Medical START) [facility] Blood-Gluco 2-0 Yes [id number] Use twice [facility] 3-08 a day for ity of (ONETOUCH 00:00: [place] VERIO FLEX E11.65 Medical START) [facility] Blood-Gluco 2-0 Yes [id number] Use twice [facility] 3-08 a day for ity of (ONETOUCH 00:00: ICD [place] VERIO FLEX E11.65 Medical START) [facility] Blood-Gluco 2-0 Yes [id number] Use twice [facility] 3-08 a day for ity of (ONETOUCH 00:00: ICD [place] VERIO FLEX E11.65 Medical START) [facility] Blood-Gluco 2022-0 Yes [id number] Use twice [facility] 3-08 a day for ity of (ONETOUCH 00:00: ICD CODE [place] VERIO FLEX 65 Medical START) [facility] Blood-Gluco 2022-0 Yes [id number] Use twice [facility] 3-08 a day for ity of (ONETOUCH 00:00: [place] VERIO FLEX [facility] START) [facility] Blood-Gluco 2022-0 Yes [id number] Use twice [facility] 3-08 a day for ity of (ONETOUCH 00:00: ICD [place] VERIO FLEX Medical START) [facility] Blood-Gluco 2022-0 Yes [id number] Use twice [facility] 3-08 a day for ity of (ONETOUCH 00:00: ICD [place] VERIO FLEX Medical START) [facility] Blood-Gluco 2022-0 Yes [id number] Use twice [facility] 3-08 a day for ity of (ONETOUCH 00:00: [place] VERIO FLEX [facility] START) [facility] Blood-Gluco 2022-0 Yes [id number] Use twice [facility] 3-08 a day for ity of (ONETOUCH 00:00: ICD [place] VERIO FLEX Medical START) [facility] Blood-Gluco 2022-0 Yes [id number] Use twice [facility] se [facility] 3-08 a day for ity of (ONETOUCH 00:00: ICD [place] VERIO FLEX Medical START) [facility] Blood-Gluco 2022-0 Yes [id number] Use twice [facility] se [facility] 3-08 a day for ity of (ONETOUCH 00:00: ICD CODE [place] VERIO FLEX 65 Medical START) Kit [facility] Blood-Gluco 2022-0 Yes [id number] Use twice [facility] se [facility] 3-08 a day for ity of (ONETOUCH 00:00: ICD CODE [place] VERIO FLEX 65 Medical START) Kit [facility] Blood-Gluco 2022-0 Yes [id number] Use twice [facility] 3-08 a day for ity of (ONETOUCH 00:00: ICD CODE [place] VERIO FLEX Medical START) [facility] Blood-Gluco 2022-0 Yes [id number] Use twice [facility] 3-08 a day for ity of (ONETOUCH 00:00: ICD CODE [place] VERIO FLEX Medical START) [facility] Blood-Gluco 2022-0 Yes [id number] Use twice [facility] se [facility] 3-08 a day for ity of (ONETOUCH 00:00: ICD CODE [place] VERIO FLEX Medical START) Kit [facility] Blood-Gluco 2022-0 Yes [id number] Use twice [facility] se [facility] 3-08 a day for ity of (ONETOUCH 00:00: ICD CODE [place] VERIO FLEX Medical START) Kit [facility] Blood-Gluco 2022-0 Yes [id number] Use twice [facility] se [facility] 3-08 a day for ity of (ONETOUCH 00:00: ICD CODE [place] VERIO FLEX Medical START) [facility] Blood-Gluco 2022-0 Yes [id number] Use twice [facility] se [facility] 3-08 a day for ity of (ONETOUCH 00:00: ICD CODE [place] VERIO FLEX Medical START) [facility] Blood-Gluco 2022-0 Yes [id number] Use twice [facility] 3-08 a day for ity of (ONETOUCH 00:00: ICD CODE [place] VERIO FLEX Medical START) [facility] Blood-Gluco 2022-0 Yes [id number] Use twice [facility] se [facility] 3-08 a day for ity of (ONETOUCH 00:00: ICD [place] VERIO FLEX Medical START) [facility] Blood-Gluco 2022-0 Yes [id number] Use twice [facility] se [facility] 3-08 a day for ity of (ONETOUCH 00:00: ICD CODE [place] VERIO FLEX Medical START) [facility] Blood-Gluco 2022-0 Yes [id number] Use twice [facility] se [facility] 3-08 a day for ity of (ONETOUCH 00:00: ICD CODE [place] VERIO FLEX Medical START) [facility] Blood-Gluco 2022-0 Yes [id number] Use twice [facility] 3-08 a day for ity of (ONETOUCH 00:00: ICD CODE [place] VERIO FLEX E11.65 Medical START) Kit [facility] Blood-Gluco 2022-0 Yes [id number] Use twice [facility] se [facility] 3-08 a day for ity of (ONETOUCH 00:00: ICD CODE [place] VERIO FLEX E11.65 Medical START) Kit Branch Blood-Gluco 2022-0 Yes [id number] Use twice [facility] se [facility] 3-08 a day for ity of (ONETOUCH 00:00: ICD CODE [place] VERIO FLEX E11.65 Medical START) Kit [facility] Blood-Gluco 2022-0 Yes [id number] Use twice [facility] se [facility] 3-08 a day for ity of (ONETOUCH 00:00: ICD CODE [place] VERIO FLEX E11.65 Medical START) Kit Branch Blood-Gluco 2022-0 Yes [id number] Use twice [facility] se [facility] 3-08 a day for ity of (ONETOUCH 00:00: ICD CODE [place] VERIO FLEX E11.65 Medical START) Kit Branch Blood-Gluco 2022-0 Yes [id number] Use twice [facility] se [facility] 3-08 a day for ity of (ONETOUCH 00:00: ICD CODE [place] VERIO FLEX E11.65 Medical START) [facility] Blood-Gluco 2022-0 Yes [id number] Use twice [facility] se [facility] 3-08 a day for ity of (ONETOUCH 00:00: ICD CODE [place] VERIO FLEX E11.65 Medical START) Kit Branch Blood-Gluco 2022-0 Yes [id number] Use twice [facility] se [facility] 3-08 a day for ity of (ONETOUCH 00:00: ICD CODE [place] VERIO FLEX E11.65 Medical START) Kit [facility] Blood-Gluco 2022-0 Yes [id number] Use twice [facility] se [facility] 3-08 a day for ity of (ONETOUCH 00:00: ICD CODE [place] VERIO FLEX E11.65 Medical START) Kit Branch Blood-Gluco 2022-0 2022- No [id number] Use twice [facility] se M[facility] 3-08 09-22 a day for ity o f (ONETOUCH 00:00: 00:00 ICD CODE [place] VERIO FLEX 00 :00 E11.65 Medical START) [facility] Blood-Gluco 0 2021- No [id number] Use twice [facility] se Meter 3-06-17 a day for ity o f (ONETOUCH 00:00: 00:00 ICD CODE [place] VERIO FLEX 00 :00 E11.65 Medical START) [facility] Blood-Gluco 0 2021- No [id number] Use twice [facility] se Meter 306-17 a day for ity o f (ONETOUCH 00:00: 00:00 ICD CODE [place] VERIO FLEX 00 :00 E11.65 Medical START) [facility] mirabegron 0 Yes [id number] 50mg Take 1 [facility] (MYRBETRIQ) 1-18 tablet by ity of 50 mg 00:00: mouth [place] tablet 00 daily. [facility] mirabegron 0 Yes [id number] 50mg Take 1 [facility] (MYRBETRIQ) 1-18 tablet by ity of 50 mg 00:00: mouth [place] tablet 00 daily. [facility] mirabegron 0 Yes [id number] 50mg Take 1 [facility] (MYRBETRIQ) 1-18 tablet by ity of 50 mg 00:00: mouth [place] tablet 00 daily. [facility] mirabegron 0 Yes [id number] 50mg Take 1 [facility] (MYRBETRIQ) 1-18 tablet by ity of 50 mg 00:00: mouth [place] tablet 00 daily. [facility] mirabegron 0 Yes [id number] 50mg Take 1 [facility] (MYRBETRIQ) 1-18 tablet by ity of 50 mg 00:00: mouth [place] tablet 00 daily. [facility] mirabegron 0 Yes [id number] 50mg Take 1 [facility] (MYRBETRIQ) 1-18 tablet by ity of 50 mg 00:00: mouth [place] tablet 00 daily. [facility] mirabegron 0 Yes [id number] 50mg Take 1 [facility] (MYRBETRIQ) 1-18 tablet by ity of 50 mg 00:00: mouth [place] tablet 00 daily. [facility] mirabegron 0 Yes [id number] 50mg Take 1 [facility] (MYRBETRIQ) 1-18 tablet by ity of 50 mg 00:00: mouth [place] tablet 00 daily. [facility] mirabegron 2021-0 Yes [id number] 50mg Take 1 [facility] (MYRBETRIQ) 1-18 tablet by ity of 50 mg 00:00: mouth [place] tablet 00 daily. [facility] mirabegron 2021-0 Yes [id number] 50mg Take 1 [facility] (MYRBETRIQ) 1-18 tablet by ity of 50 mg 00:00: mouth [place] tablet 00 daily. [facility] mirabegron 0 Yes [id number] 50mg Take 1 [facility] (MYRBETRIQ) 1-18 tablet by ity of 50 mg 00:00: mouth [place] tablet 00 daily. [facility] mirabegron 0 Yes [id number] 50mg Take 1 [facility] (MYRBETRIQ) 1-18 tablet by ity of 50 mg 00:00: mouth [place] tablet 00 daily. [facility] mirabegron 0 Yes [id number] 50mg Take 1 [facility] (MYRBETRIQ) 1-18 tablet by ity of 50 mg 00:00: mouth [place] tablet 00 daily. [facility] mirabegron 0 Yes [id number] 50mg Take 1 [facility] (MYRBETRIQ) 1-18 tablet by ity of 50 mg 00:00: mouth [place] tablet 00 daily. [facility] mirabegron 0 Yes [id number] 50mg Take 1 [facility] (MYRBETRIQ) 1-18 tablet by ity of 50 mg 00:00: mouth [place] tablet 00 daily. [facility] mirabegron 2021-0 Yes [id number] 50mg Take 1 [facility] (MYRBETRIQ) 1-18 tablet by ity of 50 mg 00:00: mouth [place] tablet 00 daily. [facility] mirabegron 2021-0 Yes [id number] 50mg Take 1 [facility] (MYRBETRIQ) 1-18 tablet by ity of 50 mg 00:00: mouth [place] tablet 00 daily. [facility] mirabegron 2021-0 Yes [id number] 50mg Take 1 [facility] (MYRBETRIQ) 1-18 tablet by ity of 50 mg 00:00: mouth [place] tablet 00 daily. [facility] mirabegron 2021-0 Yes [id number] 50mg Take 1 [facility] (MYRBETRIQ) 1-18 tablet by ity of 50 mg 00:00: mouth [place] tablet 00 daily. [facility] mirabegron 2021-0 Yes [id number] 50mg Take 1 [facility] (MYRBETRIQ) 1-18 tablet by ity of 50 mg 00:00: mouth [place] tablet 00 daily. [facility] mirabegron 2021-0 Yes [id number] 50mg Take 1 [facility] (MYRBETRIQ) 1-18 tablet by ity of 50 mg 00:00: mouth [place] tablet 00 daily. [facility] mirabegron 2021-0 Yes [id number] 50mg Take 1 Univers (MYRBETRIQ) 1-18 tablet by ity of 50 mg 00:00: mouth [place] tablet 00 daily. [facility] mirabegron 0 Yes [id number] 50mg Take 1 [facility] (MYRBETRIQ) 1-18 tablet by ity of 50 mg 00:00: mouth [place] tablet 00 daily. [facility] mirabegron 0 Yes [id number] 50mg Take 1 [facility] (MYRBETRIQ) 1-18 tablet by ity of 50 mg 00:00: mouth [place] tablet 00 daily. [facility] mirabegron 0 Yes [id number] 50mg Take 1 [facility] (MYRBETRIQ) 1-18 tablet by ity of 50 mg 00:00: mouth [place] tablet 00 daily. [facility] mirabegron 0 Yes [id number] 50mg Take 1 [facility] (MYRBETRIQ) 1-18 tablet by ity of 50 mg 00:00: mouth [place] tablet 00 daily. [facility] mirabegron 0 Yes [id number] 50mg Take 1 [facility] (MYRBETRIQ) 1-18 tablet by ity of 50 mg 00:00: mouth [place] tablet 00 daily. [facility] mirabegron 0 Yes [id number] 50mg Take 1 [facility] (MYRBETRIQ) 1-18 tablet by ity of 50 mg 00:00: mouth [place] tablet 00 daily. [facility] mirabegron 0 Yes [id number] 50mg Take 1 [facility] (MYRBETRIQ) 1-18 tablet by ity of 50 mg 00:00: mouth [place] tablet 00 daily. [facility] mirabegron 2021-0 Yes [id number] 50mg Take 1 [facility] (MYRBETRIQ) 1-18 tablet by ity of 50 mg 00:00: mouth [place] tablet 00 daily. [facility] mirabegron 0 Yes [id number] 50mg Take 1 [facility] (MYRBETRIQ) 1-18 tablet by ity of 50 mg 00:00: mouth [place] tablet 00 daily. [facility] mirabegron 0 Yes [id number] 50mg Take 1 [facility] (MYRBETRIQ) 1-18 tablet by ity of 50 mg 00:00: mouth [place] tablet 00 daily. [facility] mirabegron 0 Yes [id number] 50mg Take 1 [facility] (MYRBETRIQ) 1-18 tablet by ity of 50 mg 00:00: mouth [place] tablet 00 daily. [facility] mirabegron 0 Yes [id number] 50mg Take 1 [facility] (MYRBETRIQ) 1-18 tablet by ity of 50 mg 00:00: mouth [place] tablet 00 daily. [facility] mirabegron 0 Yes [id number] 50mg Take 1 [facility] (MYRBETRIQ) 1-18 tablet by ity of 50 mg 00:00: mouth [place] tablet 00 daily. [facility] mirabegron 0 Yes [id number] 50mg Take 1 [facility] (MYRBETRIQ) 1-18 tablet by ity of 50 mg 00:00: mouth [place] tablet 00 daily. [facility] mirabegron 0 Yes [id number] 50mg Take 1 [facility] (MYRBETRIQ) 1-18 tablet by ity of 50 mg 00:00: mouth [place] tablet 00 daily. [facility] mirabegron 0 Yes [id number] 50mg Take 1 [facility] (MYRBETRIQ) 1-18 tablet by ity of 50 mg 00:00: mouth [place] tablet 00 daily. [facility] mirabegron 0 Yes [id number] 50mg Take 1 [facility] (MYRBETRIQ) 1-18 tablet by ity of 50 mg 00:00: mouth [place] tablet 00 daily. [facility] mirabegron 0 Yes [id number] 50mg Take 1 [facility] (MYRBETRIQ) 1-18 tablet by ity of 50 mg 00:00: mouth [place] tablet 00 daily. [facility] mirabegron 0 Yes [id number] 50mg Take 1 [facility] (MYRBETRIQ) 1-18 tablet by ity of 50 mg 00:00: mouth [place] tablet 00 daily. [facility] mirabegron 0 Yes [id number] 50mg Take 1 [facility] (MYRBETRIQ) 1-18 tablet by ity of 50 mg 00:00: mouth [place] tablet 00 daily. [facility] mirabegron 0 Yes [id number] 50mg Take 1 [facility] (MYRBETRIQ) 1-18 tablet by ity of 50 mg 00:00: mouth [place] tablet 00 daily. [facility] mirabegron 0 Yes [id number] 50mg Take 1 [facility] (MYRBETRIQ) 1-18 tablet by ity of 50 mg 00:00: mouth [place] tablet 00 daily. [facility] mirabegron Yes [id number] 50mg Take 1 [facility] (MYRBETRIQ) 1-18 tablet by ity of 50 mg 00:00: mouth [place] tablet 00 daily. [facility] mirabegron 0 Yes [id number] 50mg Take 1 [facility] (MYRBETRIQ) 1-18 tablet by ity of 50 mg 00:00: mouth [place] tablet 00 daily. [facility] mirabegron Yes [id number] 50mg Take 1 [facility] (MYRBETRIQ) 1-18 tablet by ity of 50 mg 00:00: mouth [place] tablet 00 daily. [facility] mirabegron Yes [id number] 50mg Take 1 [facility] (MYRBETRIQ) 1-18 tablet by ity of 50 mg 00:00: mouth [place] tablet 00 daily. [facility] mirabegron 2021- No [id number] 50mg Take 1 Univers (MYRBETRIQ) 1-18 10-13 tablet by it y of 50 mg 00:00: 00:00 mouth [place] tablet 00 :00 daily. [facility] semaglutide 2020-09 Yes [id number] Inject Univers (OZEMPIC) 2-01 0.25 mg ity of 0.25 mg or 00:00: under the [place] 0.5 mg(2 00 skin Medical mg/1.5 mL) weekly. Branch PnIj semaglutide 2020-09 Yes [id number] Inject [facility] (OZEMPIC) 2-01 0.25 mg ity of 0.25 mg or 00:00: under the [place] 0.5 mg(2 00 skin Medical mg/1.5 mL) weekly. Branch PnIj semaglutide 2020-09 Yes [id number] Inject [facility] (OZEMPIC) 2-01 0.25 mg ity of 0.25 mg or 00:00: under the [place] 0.5 mg(2 00 skin Medical mg/1.5 mL) weekly. Branch PnIj semaglutide 2020-09 Yes [id number] Inject [facility] (OZEMPIC) 2-01 0.25 mg ity of 0.25 mg or 00:00: under the [place] 0.5 mg(2 00 skin Medical mg/1.5 mL) weekly. Branch PnIj semaglutide 2020-09 Yes [id number] Inject [facility] (OZEMPIC) 2-01 0.25 mg ity of 0.25 mg or 00:00: under the [place] 0.5 mg(2 00 skin Medical mg/1.5 mL) weekly. Branch PnIj semaglutide 2020-09 Yes [id number] Inject [facility] (OZEMPIC) 2-01 0.25 mg ity of 0.25 mg or 00:00: under the [place] 0.5 mg(2 00 skin Medical mg/1.5 mL) weekly. Branch PnIj semaglutide 2020-09 Yes [id number] Inject [facility] (OZEMPIC) 2-01 0.25 mg ity of 0.25 mg or 00:00: under the [place] 0.5 mg(2 00 skin Medical mg/1.5 mL) weekly. Branch PnIj semaglutide 2020-09 Yes [id number] Inject [facility] (OZEMPIC) 2-01 0.25 mg ity of 0.25 mg or 00:00: under the [place] 0.5 mg(2 00 skin Medical mg/1.5 mL) weekly. Branch PnIj semaglutide 2020-09 Yes [id number] Inject [facility] (OZEMPIC) 2-01 0.25 mg ity of 0.25 mg or 00:00: under the [place] 0.5 mg(2 00 skin Medical mg/1.5 mL) weekly. Branch PnIj semaglutide 2020-09 Yes [id number] Inject [facility] (OZEMPIC) 2-01 0.25 mg ity of 0.25 mg or 00:00: under the [place] 0.5 mg(2 00 skin Medical mg/1.5 mL) weekly. Branch PnIj semaglutide 2020-09 Yes [id number] Inject [facility] (OZEMPIC) 2-01 0.25 mg ity of 0.25 mg or 00:00: under the [place] 0.5 mg(2 00 skin Medical mg/1.5 mL) weekly. Branch PnIj semaglutide 2020-09 Yes [id number] Inject [facility] (OZEMPIC) 2-01 0.25 mg ity of 0.25 mg or 00:00: under the [place] 0.5 mg(2 00 skin Medical mg/1.5 mL) weekly. Branch PnIj semaglutide 2020-09 Yes [id number] Inject [facility] (OZEMPIC) 2-01 0.25 mg ity of 0.25 mg or 00:00: under the [place] 0.5 mg(2 00 skin Medical mg/1.5 mL) weekly. Branch PnIj semaglutide 2020-09 Yes [id number] Inject [facility] (OZEMPIC) 2-01 0.25 mg ity of 0.25 mg or 00:00: under the [place] 0.5 mg(2 00 skin Medical mg/1.5 mL) weekly. Branch PnIj semaglutide 2020-09 Yes [id number] Inject [facility] (OZEMPIC) 2-01 0.25 mg ity of 0.25 mg or 00:00: under the [place] 0.5 mg(2 00 skin Medical mg/1.5 mL) weekly. Branch PnIj semaglutide 2020-09 Yes [id number] Inject [facility] (OZEMPIC) 2-01 0.25 mg ity of 0.25 mg or 00:00: under the [place] 0.5 mg(2 00 skin Medical mg/1.5 mL) weekly. Branch PnIj semaglutide 2020-09 Yes [id number] Inject [facility] (OZEMPIC) 2-01 0.25 mg ity of 0.25 mg or 00:00: under the [place] 0.5 mg(2 00 skin Medical mg/1.5 mL) weekly. Branch PnIj semaglutide 2020-09 Yes [id number] Inject [facility] (OZEMPIC) 2-01 0.25 mg ity of 0.25 mg or 00:00: under the [place] 0.5 mg(2 00 skin Medical mg/1.5 mL) weekly. Branch PnIj semaglutide 2020-09 Yes [id number] Inject [facility] (OZEMPIC) 2-01 0.25 mg ity of 0.25 mg or 00:00: under the [place] 0.5 mg(2 00 skin Medical mg/1.5 mL) weekly. Branch PnIj semaglutide 2020-09 Yes [id number] Inject [facility] (OZEMPIC) 2-01 0.25 mg ity of 0.25 mg or 00:00: under the [place] 0.5 mg(2 00 skin Medical mg/1.5 mL) weekly. Branch PnIj semaglutide 2020-09 Yes [id number] Inject [facility] (OZEMPIC) 2-01 0.25 mg ity of 0.25 mg or 00:00: under the [place] 0.5 mg(2 00 skin Medical mg/1.5 mL) weekly. Branch PnIj semaglutide 2020-09 Yes [id number] Inject [facility] (OZEMPIC) 2-01 0.25 mg ity of 0.25 mg or 00:00: under the [place] 0.5 mg(2 00 skin Medical mg/1.5 mL) weekly. Branch PnIj semaglutide 2020-09 Yes [id number] Inject [facility] (OZEMPIC) 2-01 0.25 mg ity of 0.25 mg or 00:00: under the [place] 0.5 mg(2 00 skin Medical mg/1.5 mL) weekly. Branch PnIj semaglutide 2020-09 Yes [id number] Inject [facility] (OZEMPIC) 2-01 0.25 mg ity of 0.25 mg or 00:00: under the [place] 0.5 mg(2 00 skin Medical mg/1.5 mL) weekly. Branch PnIj semaglutide 2020-09 Yes [id number] Inject [facility] (OZEMPIC) 2-01 0.25 mg ity of 0.25 mg or 00:00: under the [place] 0.5 mg(2 00 skin Medical mg/1.5 mL) weekly. Branch PnIj semaglutide 2020-09 Yes [id number] Inject [facility] (OZEMPIC) 2-01 0.25 mg ity of 0.25 mg or 00:00: under the [place] 0.5 mg(2 00 skin Medical mg/1.5 mL) weekly. Branch PnIj semaglutide 2020-09 Yes [id number] Inject [facility] (OZEMPIC) 2-01 0.25 mg ity of 0.25 mg or 00:00: under the [place] 0.5 mg(2 00 skin Medical mg/1.5 mL) weekly. Branch PnIj semaglutide 2020-09 Yes [id number] Inject [facility] (OZEMPIC) 2-01 0.25 mg ity of 0.25 mg or 00:00: under the [place] 0.5 mg(2 00 skin Medical mg/1.5 mL) weekly. Branch PnIj semaglutide 2020-09 Yes [id number] Inject [facility] (OZEMPIC) 2-01 0.25 mg ity of 0.25 mg or 00:00: under the [place] 0.5 mg(2 00 skin Medical mg/1.5 mL) weekly. Branch PnIj semaglutide 2020-09 Yes [id number] Inject [facility] (OZEMPIC) 2-01 0.25 mg ity of 0.25 mg or 00:00: under the [place] 0.5 mg(2 00 skin Medical mg/1.5 mL) weekly. Branch PnIj semaglutide 2020-09 Yes [id number] Inject [facility] (OZEMPIC) 2-01 0.25 mg ity of 0.25 mg or 00:00: under the [place] 0.5 mg(2 00 skin Medical mg/1.5 mL) weekly. Branch PnIj semaglutide 2020-09 Yes [id number] Inject [facility] (OZEMPIC) 2-01 0.25 mg ity of 0.25 mg or 00:00: under the [place] 0.5 mg(2 00 skin Medical mg/1.5 mL) weekly. Branch PnIj semaglutide 2020-09 Yes [id number] Inject [facility] (OZEMPIC) 2-01 0.25 mg ity of 0.25 mg or 00:00: under the [place] 0.5 mg(2 00 skin Medical mg/1.5 mL) weekly. Branch PnIj semaglutide 2020-09 Yes [id number] Inject [facility] (OZEMPIC) 2-01 0.25 mg ity of 0.25 mg or 00:00: under the [place] 0.5 mg(2 00 skin Medical mg/1.5 mL) weekly. Branch PnIj semaglutide 2020-09 Yes [id number] Inject [facility] (OZEMPIC) 2-01 0.25 mg ity of 0.25 mg or 00:00: under the [place] 0.5 mg(2 00 skin Medical mg/1.5 mL) weekly. Branch PnIj semaglutide 2020-09 Yes [id number] Inject [facility] (OZEMPIC) 2-01 0.25 mg ity of 0.25 mg or 00:00: under the [place] 0.5 mg(2 00 skin Medical mg/1.5 mL) weekly. Branch PnIj semaglutide 2020-09 Yes [id number] Inject [facility] (OZEMPIC) 2-01 0.25 mg ity of 0.25 mg or 00:00: under the [place] 0.5 mg(2 00 skin Medical mg/1.5 mL) weekly. Branch PnIj semaglutide 2020-09 Yes [id number] Inject [facility] (OZEMPIC) 2-01 0.25 mg ity of 0.25 mg or 00:00: under the [place] 0.5 mg(2 00 skin Medical mg/1.5 mL) weekly. Branch PnIj semaglutide 2020-09 Yes [id number] Inject [facility] (OZEMPIC) 2-01 0.25 mg ity of 0.25 mg or 00:00: under the [place] 0.5 mg(2 00 skin Medical mg/1.5 mL) weekly. Branch PnIj semaglutide 2020-09 Yes [id number] Inject [facility] (OZEMPIC) 2-01 0.25 mg ity of 0.25 mg or 00:00: under the [place] 0.5 mg(2 00 skin Medical mg/1.5 mL) weekly. Branch PnIj semaglutide 2020-09 Yes [id number] Inject [facility] (OZEMPIC) 2-01 0.25 mg ity of 0.25 mg or 00:00: under the [place] 0.5 mg(2 00 skin Medical mg/1.5 mL) weekly. Branch [facility] semaglutide 2020-09 Yes [id number] Inject [facility] (OZEMPIC) 2-01 0.25 mg ity of 0.25 mg or 00:00: under the [place] 0.5 mg(2 00 skin Medical mg/1.5 mL) weekly. Branch PnIj semaglutide 2020-09 Yes [id number] Inject [facility] (OZEMPIC) 2-01 0.25 mg ity of 0.25 mg or 00:00: under the [place] 0.5 mg(2 00 skin Medical mg/1.5 mL) weekly. Branch [facility] semaglutide 2020-09 Yes [id number] Inject [facility] (OZEMPIC) 2-01 0.25 mg ity of 0.25 mg or 00:00: under the [place] 0.5 mg(2 00 skin Medical mg/1.5 mL) weekly. Branch [place] semaglutide 2020-09 Yes [id number] Inject [facility] (OZEMPIC) 2-01 0.25 mg ity of 0.25 mg or 00:00: under the [place] 0.5 mg(2 00 skin Medical mg/1.5 mL) weekly. Branch [facility] semaglutide 2020-09 Yes [id number] Inject [facility] (OZEMPIC) 2-01 0.25 mg ity of 0.25 mg or 00:00: under the [place] 0.5 mg(2 00 skin Medical mg/1.5 mL) weekly. Branch [facility] semaglutide 2020-09 Yes [id number] Inject [facility] (OZEMPIC) 2-01 0.25 mg ity of 0.25 mg or 00:00: under the [place] 0.5 mg(2 00 skin Medical mg/1.5 mL) weekly. Branch RyIj semaglutide 2020-09 Yes [id number] Inject [facility] (OZEMPIC) 2-01 0.25 mg ity of 0.25 mg or 00:00: under the [place] 0.5 mg(2 00 skin Medical mg/1.5 mL) weekly. Branch RyIj semaglutide 2020-09 [id number] Inject [facility] (OZEMPIC) 10-27 0.25 mg ity of 0.25 mg or 00:00: 00:00 under the [place] 0.5 mg(2 00 :00 skin Medical mg/1.5 mL) weekly. Branch PnIj metformin 2020-09- No [id number] 500mg Take 1 [facility] ER 500 mg 10-27 tablet by ity of 24 hr 00:00: 00:00 mouth [place] tablet 00 :00 daily with Medical breakfast. Branch STOP REGULAR METFORMIN. metformin 2020-09- No [id number] 500mg Take 1 [facility] ER 500 mg 10-27 tablet by ity of 24 hr 00:00: 00:00 mouth [place] tablet 00 :00 daily with Medical breakfast. Branch STOP REGULAR METFORMIN. cyanocobala 2020-09 Yes [id number] 1000ug 1 mL by [facility] min 1,000 1-09 Intramuscu ity of mcg/mL 00:00: lar route [place] injection 00 every 2 Medical (two) Branch weeks. levothyroxi 2020-09 Yes [id number] 50ug Take 1 [facility] ne 50 mcg -09 tablet by ity o f tablet 00:00: mouth [place] 00 every Medical morning. Branch fluticasone 2020-09 Yes [id number] 2{puff} Inhale 2 [facility] propionate 1-09 Puffs ity of (FLOVENT 00:00: every 12 [place] HFA) 110 00 (twelve) Medical mcg/actuati hours. Branch on inhaler Rinse mouth after each use. levalbutero 2020-09 Yes [id number] .63mg Inhale [facility] l 0.63 mg/3 1-09 0.63 mg 3 ity of mL 00:00: (three) [place] nebulizer 00 times Medical solution daily as Branch needed for Wheezing or Shortness of Breath. losartan 50 2020-09 Yes [id number] 50mg Take 1 [facility] mg tablet 1-09 tablet by ity o f 00:00: mouth 2 [place] 00 (two) Medical times Branch daily. clotrimazol 2020-09 Yes [id number] Apply to [facility] e-betametha -09 area(s) 2 ity of sone cream 00:00: (two) [place] 00 times Medical daily. Branch cyclobenzap 2020-09 Yes [id number] TAKE 1 [facility] rine 5 mg 1-09 TABLET BY ity o f tablet 00:00: MOUTH [place] 00 EVERY 8 Medical HOURS Branch NEEDED econazole 2020-09 Yes [id number] Apply to [facility] nitrate 1 % 1-09 area(s) 2 ity of cream 00:00: (two) [place] 00 times Medical daily. Branch albuterol 2020-09 Yes [id number] 2{puff} Inhale 2 [facility] (PROAIR 1-09 Puffs ity of HFA) 90 00:00: every 6 [place] mcg/actuati 00 (six) Medical on inhaler hours as Branc h needed for Wheezing or Shortness of Breath. triamcinolo 2020-09 Yes [id number] Apply to [facility] ne 0.025 % -09 area(s) 3 ity of ointment 00:00: (three) [place] 00 times Medical daily. For Branch itching diltiazem 2020-09 Yes [id number] 120mg Take 1 [facility] (CARTIA XT) 1-09 capsule by it y of 120 mg 24 00:00: mouth 2 [place] hr capsule 00 (two) Medical times Branch daily. cyanocobala 2020-09 Yes [id number] 1000ug 1 mL by [facility] min 1,000 1-09 Intramuscu ity of mcg/mL 00:00: lar route [place] injection 00 every 2 Medical (two) Branch weeks. levothyroxi 2020-09 Yes [id number] 50ug Take 1 [facility] ne 50 mcg 1-09 tablet by ity o f tablet 00:00: mouth [place] 00 every Medical morning. Branch fluticasone 2020-09 Yes [id number] 2{puff} Inhale 2 [facility] propionate 1-09 Puffs ity of (FLOVENT 00:00: every 12 [place] HFA) 110 00 (twelve) Medical mcg/actuati hours. Branch on inhaler Rinse mouth after each use. levalbutero 2020-09 Yes [id number] .63mg Inhale [facility] l 0.63 mg/3 1-09 0.63 mg 3 ity of mL 00:00: (three) [place] nebulizer 00 times Medical solution daily as Branch needed for Wheezing or Shortness of Breath. losartan 50 2020-09 Yes [id number] 50mg Take 1 [facility] mg tablet 1-09 tablet by ity o f 00:00: mouth 2 [place] 00 (two) Medical times Branch daily. clotrimazol 2020-09 Yes [id number] Apply to [facility] e-betametha 10-04 area(s) 2 ity of sone cream 00:00: (two) [place] 00 times Medical daily. Branch cyclobenzap 2020-09 Yes [id number] TAKE 1 [facility] rine 5 mg -09 TABLET BY ity o f tablet 00:00: MOUTH [place] 00 EVERY 8 Medical HOURS Branch NEEDED econazole 2020-09 Yes [id number] Apply to [facility] nitrate 1 % 10-04 area(s) 2 ity of cream 00:00: (two) [place] 00 times Medical daily. Branch albuterol 2020-09 Yes [id number] 2{puff} Inhale 2 [facility] (PROAIR 1-09 Puffs ity of HFA) 90 00:00: every 6 [place] mcg/actuati 00 (six) Medical on inhaler hours as Branc h needed for Wheezing or Shortness of Breath. triamcinolo 2020-09 Yes [id number] Apply to [facility] ne 0.025 % 10-04 area(s) 3 ity of ointment 00:00: (three) [place] 00 times Medical daily. For Branch itching diltiazem 2020-09 Yes [id number] 120mg Take 1 [facility] (CARTIA XT) 10-04 capsule by it y of 120 mg 24 00:00: mouth 2 [place] hr capsule 00 (two) Medical times Branch daily. cyanocobala 2020-09 Yes [id number] 1000ug 1 mL by [facility] min 1,000 09 Intramuscu ity of mcg/mL 00:00: lar route [place] injection 00 every 2 Medical (two) Branch weeks. levothyroxi 2020-09 Yes [id number] 50ug Take 1 [facility] ne 50 mcg -09 tablet by ity o f tablet 00:00: mouth [place] 00 every Medical morning. Branch fluticasone 2020-09 Yes [id number] 2{puff} Inhale 2 [facility] propionate 1-09 Puffs ity of (FLOVENT 00:00: every 12 [place] HFA) 110 00 (twelve) Medical mcg/actuati hours. Branch on inhaler Rinse mouth after each use. levalbutero 2020-09 Yes [id number] .63mg Inhale [facility] l 0.63 mg/3 1-09 0.63 mg 3 ity of mL 00:00: (three) [place] nebulizer 00 times Medical solution daily as Branch needed for Wheezing or Shortness of Breath. losartan 50 2020-09 Yes [id number] 50mg Take 1 [facility] mg tablet -09 tablet by ity o f 00:00: mouth 2 [place] 00 (two) Medical times Branch daily. clotrimazol 2020-09 Yes [id number] Apply to [facility] e-betametha 09 area(s) 2 ity of sone cream 00:00: (two) [place] 00 times Medical daily. Branch cyclobenzap 2020-09 Yes [id number] TAKE 1 [facility] rine 5 mg 09 TABLET BY ity o f tablet 00:00: MOUTH [place] 00 EVERY 8 Medical HOURS Branch NEEDED econazole 2020-09 Yes [id number] Apply to [facility] nitrate 1 % 10-04 area(s) 2 ity of cream 00:00: (two) [place] 00 times Medical daily. Branch albuterol 2020-09 Yes [id number] 2{puff} Inhale 2 [facility] (PROAIR -09 Puffs ity of HFA) 90 00:00: every 6 [place] mcg/actuati 00 (six) Medical on inhaler hours as Branc h needed for Wheezing or Shortness of Breath. triamcinolo 2020-09 Yes [id number] Apply to [facility] ne 0.025 % 10-04 area(s) 3 ity of ointment 00:00: (three) [place] 00 times Medical daily. For Branch itching diltiazem 2020-09 Yes [id number] 120mg Take 1 [facility] (CARTIA XT) 09 capsule by it y of 120 mg 24 00:00: mouth 2 [place] hr capsule 00 (two) Medical times Branch daily. cyanocobala 2020-09 Yes [id number] 1000ug 1 mL by [facility] min 1,000 -09 Intramuscu ity of mcg/mL 00:00: lar route [place] injection 00 every 2 Medical (two) Branch weeks. levothyroxi 2020-09 Yes [id number] 50ug Take 1 [facility] ne 50 mcg -09 tablet by ity o f tablet 00:00: mouth [place] 00 every Medical morning. Branch fluticasone 2020-09 Yes [id number] 2{puff} Inhale 2 [facility] propionate 1-09 Puffs ity of (FLOVENT 00:00: every 12 [place] HFA) 110 00 (twelve) Medical mcg/actuati hours. Branch on inhaler Rinse mouth after each use. levalbutero 2020-09 Yes [id number] .63mg Inhale [facility] l 0.63 mg/3 1-09 0.63 mg 3 ity of mL 00:00: (three) [place] nebulizer 00 times Medical solution daily as Branch needed for Wheezing or Shortness of Breath. losartan 50 2020-09 Yes [id number] 50mg Take 1 [facility] mg tablet -09 tablet by ity o f 00:00: mouth 2 [place] 00 (two) Medical times Branch daily. clotrimazol 2020-09 Yes [id number] Apply to [facility] e-betametha -09 area(s) 2 ity of sone cream 00:00: (two) [place] 00 times Medical daily. Branch cyclobenzap 2020-09 Yes [id number] TAKE 1 [facility] rine 5 mg -09 TABLET BY ity o f tablet 00:00: MOUTH [place] 00 EVERY 8 Medical HOURS Branch NEEDED econazole 2020-09 Yes [id number] Apply to [facility] nitrate 1 % 09 area(s) 2 ity of cream 00:00: (two) [place] 00 times Medical daily. Branch albuterol 2020-09 Yes [id number] 2{puff} Inhale 2 [facility] (PROAIR 1-09 Puffs ity of HFA) 90 00:00: every 6 [place] mcg/actuati 00 (six) Medical on inhaler hours as Branc h needed for Wheezing or Shortness of Breath. triamcinolo 2020-09 Yes [id number] Apply to [facility] ne 0.025 % -09 area(s) 3 ity of ointment 00:00: (three) [place] 00 times Medical daily. For Branch itching diltiazem 2020-09 Yes [id number] 120mg Take 1 [facility] (CARTIA XT) -09 capsule by it y of 120 mg 24 00:00: mouth 2 [place] hr capsule 00 (two) Medical times Branch daily. cyanocobala 2020-09 Yes [id number] 1000ug 1 mL by [facility] min 1,000 1-09 Intramuscu ity of mcg/mL 00:00: lar route [place] injection 00 every 2 Medical (two) Branch weeks. levothyroxi 2020-09 Yes [id number] 50ug Take 1 [facility] ne 50 mcg 1-09 tablet by ity o f tablet 00:00: mouth [place] 00 every Medical morning. Branch fluticasone 2020-09 Yes [id number] 2{puff} Inhale 2 [facility] propionate 1-09 Puffs ity of (FLOVENT 00:00: every 12 [place] HFA) 110 00 (twelve) Medical mcg/actuati hours. Branch on inhaler Rinse mouth after each use. levalbutero 2020-09 Yes [id number] .63mg Inhale [facility] l 0.63 mg/3 1-09 0.63 mg 3 ity of mL 00:00: (three) [place] nebulizer 00 times Medical solution daily as Branch needed for Wheezing or Shortness of Breath. clotrimazol 2020-09 Yes [id number] Apply to [facility] e-betametha -09 area(s) 2 ity of sone cream 00:00: (two) [place] 00 times Medical daily. Branch cyclobenzap 2020-09 Yes [id number] TAKE 1 [facility] rine 5 mg 1-09 TABLET BY ity o f tablet 00:00: MOUTH [place] 00 EVERY 8 Medical HOURS Branch NEEDED econazole 2020-09 Yes [id number] Apply to [facility] nitrate 1 % -09 area(s) 2 ity of cream 00:00: (two) [place] 00 times Medical daily. Branch albuterol 2020-09 Yes [id number] 2{puff} Inhale 2 [facility] (PROAIR 1-09 Puffs ity of HFA) 90 00:00: every 6 [place] mcg/actuati 00 (six) Medical on inhaler hours as Branc h needed for Wheezing or Shortness of Breath. triamcinolo 2020-09 Yes [id number] Apply to [facility] ne 0.025 % 1-09 area(s) 3 ity of ointment 00:00: (three) [place] 00 times Medical daily. For Branch itching cyanocobala 2020-09 Yes [id number] 1000ug 1 mL by [facility] min 1,000 1-09 Intramuscu ity of mcg/mL 00:00: lar route [place] injection 00 every 2 Medical (two) Branch weeks. levothyroxi 2020-09 Yes [id number] 50ug Take 1 [facility] ne 50 mcg 1-09 tablet by ity o f tablet 00:00: mouth [place] 00 every Medical morning. Branch fluticasone 2020-09 Yes [id number] 2{puff} Inhale 2 [facility] propionate 1-09 Puffs ity of (FLOVENT 00:00: every 12 [place] HFA) 110 00 (twelve) Medical mcg/actuati hours. Branch on inhaler Rinse mouth after each use. levalbutero 2020-09 Yes [id number] .63mg Inhale [facility] l 0.63 mg/3 1-09 0.63 mg 3 ity of mL 00:00: (three) [place] nebulizer 00 times Medical solution daily as Branch needed for Wheezing or Shortness of Breath. clotrimazol 2020-09 Yes [id number] Apply to [facility] e-betametha 1-09 area(s) 2 ity of sone cream 00:00: (two) [place] 00 times Medical daily. Branch cyclobenzap 2020-09 Yes [id number] TAKE 1 [facility] rine 5 mg -09 TABLET BY ity o f tablet 00:00: MOUTH [place] 00 EVERY 8 Medical HOURS Branch NEEDED econazole 2020-09 Yes [id number] Apply to [facility] nitrate 1 % -09 area(s) 2 ity of cream 00:00: (two) [place] 00 times Medical daily. Branch albuterol 2020-09 Yes [id number] 2{puff} Inhale 2 [facility] (PROAIR 1-09 Puffs ity of HFA) 90 00:00: every 6 [place] mcg/actuati 00 (six) Medical on inhaler hours as Branc h needed for Wheezing or Shortness of Breath. triamcinolo 2020-09 Yes [id number] Apply to [facility] ne 0.025 % 1-09 area(s) 3 ity of ointment 00:00: (three) [place] 00 times Medical daily. For Branch itching cyanocobala 2020-09 Yes [id number] 1000ug 1 mL by [facility] min 1,000 1-09 Intramuscu ity of mcg/mL 00:00: lar route [place] injection 00 every 2 Medical (two) Branch weeks. levothyroxi 2020-09 Yes [id number] 50ug Take 1 [facility] ne 50 mcg 1-09 tablet by ity o f tablet 00:00: mouth [place] 00 every Medical morning. Branch fluticasone 2020-09 Yes [id number] 2{puff} Inhale 2 [facility] propionate 1-09 Puffs ity of (FLOVENT 00:00: every 12 [place] HFA) 110 00 (twelve) Medical mcg/actuati hours. Branch on inhaler Rinse mouth after each use. levalbutero 2020-09 Yes [id number] .63mg Inhale [facility] l 0.63 mg/3 1-09 0.63 mg 3 ity of mL 00:00: (three) [place] nebulizer 00 times Medical solution daily as Branch needed for Wheezing or Shortness of Breath. clotrimazol 2020-09 Yes [id number] Apply to [facility] e-betametha -09 area(s) 2 ity of sone cream 00:00: (two) [place] 00 times Medical daily. Branch cyclobenzap 2020-09 Yes [id number] TAKE 1 [facility] rine 5 mg -09 TABLET BY ity o f tablet 00:00: MOUTH [place] 00 EVERY 8 Medical HOURS Branch NEEDED econazole 2020-09 Yes [id number] Apply to [facility] nitrate 1 % -09 area(s) 2 ity of cream 00:00: (two) [place] 00 times Medical daily. Branch albuterol 2020-09 Yes [id number] 2{puff} Inhale 2 [facility] (PROAIR 1-09 Puffs ity of HFA) 90 00:00: every 6 [place] mcg/actuati 00 (six) Medical on inhaler hours as Branc h needed for Wheezing or Shortness of Breath. triamcinolo 2020-09 Yes [id number] Apply to [facility] ne 0.025 % 1-09 area(s) 3 ity of ointment 00:00: (three) [place] 00 times Medical daily. For Branch itching cyanocobala 2020-09 Yes [id number] 1000ug 1 mL by [facility] min 1,000 1-09 Intramuscu ity of mcg/mL 00:00: lar route [place] injection 00 every 2 Medical (two) Branch weeks. levothyroxi 2020-09 Yes [id number] 50ug Take 1 [facility] ne 50 mcg 1-09 tablet by ity o f tablet 00:00: mouth [place] 00 every Medical morning. Branch fluticasone 2020-09 Yes [id number] 2{puff} Inhale 2 [facility] propionate 1-09 Puffs ity of (FLOVENT 00:00: every 12 [place] HFA) 110 00 (twelve) Medical mcg/actuati hours. Branch on inhaler Rinse mouth after each use. levalbutero 2020-09 Yes [id number] .63mg Inhale [facility] l 0.63 mg/3 1-09 0.63 mg 3 ity of mL 00:00: (three) [place] nebulizer 00 times Medical solution daily as Branch needed for Wheezing or Shortness of Breath. clotrimazol 2020-09 Yes [id number] Apply to [facility] e-betametha -09 area(s) 2 ity of sone cream 00:00: (two) [place] 00 times Medical daily. Branch cyclobenzap 2020-09 Yes [id number] TAKE 1 [facility] rine 5 mg -09 TABLET BY ity o f tablet 00:00: MOUTH [place] 00 EVERY 8 Medical HOURS Branch NEEDED econazole 2020-09 Yes [id number] Apply to [facility] nitrate 1 % -09 area(s) 2 ity of cream 00:00: (two) [place] 00 times Medical daily. Branch albuterol 2020-09 Yes [id number] 2{puff} Inhale 2 [facility] (PROAIR 1-09 Puffs ity of HFA) 90 00:00: every 6 [place] mcg/actuati 00 (six) Medical on inhaler hours as Branc h needed for Wheezing or Shortness of Breath. triamcinolo 2020-09 Yes [id number] Apply to [facility] ne 0.025 % -09 area(s) 3 ity of ointment 00:00: (three) [place] 00 times Medical daily. For Branch itching cyanocobala 2020-09 Yes [id number] 1000ug 1 mL by [facility] min 1,000 1-09 Intramuscu ity of mcg/mL 00:00: lar route [place] injection 00 every 2 Medical (two) Branch weeks. levothyroxi 2020-09 Yes [id number] 50ug Take 1 [facility] ne 50 mcg -09 tablet by ity o f tablet 00:00: mouth [place] 00 every Medical morning. Branch fluticasone 2020-09 Yes [id number] 2{puff} Inhale 2 [facility] propionate 1-09 Puffs ity of (FLOVENT 00:00: every 12 [place] HFA) 110 00 (twelve) Medical mcg/actuati hours. Branch on inhaler Rinse mouth after each use. levalbutero 2020-09 Yes [id number] .63mg Inhale [facility] l 0.63 mg/3 1-09 0.63 mg 3 ity of mL 00:00: (three) [place] nebulizer 00 times Medical solution daily as Branch needed for Wheezing or Shortness of Breath. clotrimazol 2020-09 Yes [id number] Apply to [facility] e-betametha 1-09 area(s) 2 ity of sone cream 00:00: (two) [place] 00 times Medical daily. Branch cyclobenzap 2020-09 Yes [id number] TAKE 1 [facility] rine 5 mg -09 TABLET BY ity o f tablet 00:00: MOUTH [place] 00 EVERY 8 Medical HOURS Branch NEEDED econazole 2020-09 Yes [id number] Apply to [facility] nitrate 1 % -09 area(s) 2 ity of cream 00:00: (two) [place] 00 times Medical daily. Branch albuterol 2020-09 Yes [id number] 2{puff} Inhale 2 [facility] (PROAIR 1-09 Puffs ity of HFA) 90 00:00: every 6 [place] mcg/actuati 00 (six) Medical on inhaler hours as Branc h needed for Wheezing or Shortness of Breath. triamcinolo 2020-09 Yes [id number] Apply to [facility] ne 0.025 % 1-09 area(s) 3 ity of ointment 00:00: (three) [place] 00 times Medical daily. For Branch itching cyanocobala 2020-09 Yes [id number] 1000ug 1 mL by [facility] min 1,000 1-09 Intramuscu ity of mcg/mL 00:00: lar route [place] injection 00 every 2 Medical (two) Branch weeks. levothyroxi 2020-09 Yes [id number] 50ug Take 1 [facility] ne 50 mcg 1-09 tablet by ity o f tablet 00:00: mouth [place] 00 every Medical morning. Branch fluticasone 2020-09 Yes [id number] 2{puff} Inhale 2 [facility] propionate 1-09 Puffs ity of (FLOVENT 00:00: every 12 [place] HFA) 110 00 (twelve) Medical mcg/actuati hours. Branch on inhaler Rinse mouth after each use. levalbutero 2020-09 Yes [id number] .63mg Inhale [facility] l 0.63 mg/3 1-09 0.63 mg 3 ity of mL 00:00: (three) [place] nebulizer 00 times Medical solution daily as Branch needed for Wheezing or Shortness of Breath. clotrimazol 2020-09 Yes [id number] Apply to [facility] e-betametha -09 area(s) 2 ity of sone cream 00:00: (two) [place] 00 times Medical daily. Branch cyclobenzap 2020-09 Yes [id number] TAKE 1 [facility] rine 5 mg -09 TABLET BY ity o f tablet 00:00: MOUTH [place] 00 EVERY 8 Medical HOURS Branch NEEDED econazole 2020-09 Yes [id number] Apply to [facility] nitrate 1 % 10-04 area(s) 2 ity of cream 00:00: (two) [place] 00 times Medical daily. Branch albuterol 2020-09 Yes [id number] 2{puff} Inhale 2 [facility] (PROAIR 1-09 Puffs ity of HFA) 90 00:00: every 6 [place] mcg/actuati 00 (six) Medical on inhaler hours as Branc h needed for Wheezing or Shortness of Breath. triamcinolo 2020-09 Yes [id number] Apply to [facility] ne 0.025 % 09 area(s) 3 ity of ointment 00:00: (three) [place] 00 times Medical daily. For Branch itching cyanocobala 2020-09 Yes [id number] 1000ug 1 mL by [facility] min 1,000 1-09 Intramuscu ity of mcg/mL 00:00: lar route [place] injection 00 every 2 Medical (two) Branch weeks. levothyroxi 2020-09 Yes [id number] 50ug Take 1 [facility] ne 50 mcg 1-09 tablet by ity o f tablet 00:00: mouth [place] 00 every Medical morning. Branch fluticasone 2020-09 Yes [id number] 2{puff} Inhale 2 [facility] propionate 1-09 Puffs ity of (FLOVENT 00:00: every 12 [place] HFA) 110 00 (twelve) Medical mcg/actuati hours. Branch on inhaler Rinse mouth after each use. levalbutero 2020-09 Yes [id number] .63mg Inhale [facility] l 0.63 mg/3 1-09 0.63 mg 3 ity of mL 00:00: (three) [place] nebulizer 00 times Medical solution daily as Branch needed for Wheezing or Shortness of Breath. clotrimazol 2020-09 Yes [id number] Apply to [facility] e-betametha 09 area(s) 2 ity of sone cream 00:00: (two) [place] 00 times Medical daily. Branch cyclobenzap 2020-09 Yes [id number] TAKE 1 [facility] rine 5 mg -09 TABLET BY ity o f tablet 00:00: MOUTH [place] 00 EVERY 8 Medical HOURS Branch NEEDED econazole 2020-09 Yes [id number] Apply to [facility] nitrate 1 % 09 area(s) 2 ity of cream 00:00: (two) [place] 00 times Medical daily. Branch albuterol 2020-09 Yes [id number] 2{puff} Inhale 2 [facility] (PROAIR 1-09 Puffs ity of HFA) 90 00:00: every 6 [place] mcg/actuati 00 (six) Medical on inhaler hours as Branc h needed for Wheezing or Shortness of Breath. triamcinolo 2020-09 Yes [id number] Apply to [facility] ne 0.025 % 09 area(s) 3 ity of ointment 00:00: (three) [place] 00 times Medical daily. For Branch itching cyanocobala 2020-09 Yes [id number] 1000ug 1 mL by [facility] min 1,000 -09 Intramuscu ity of mcg/mL 00:00: lar route [place] injection 00 every 2 Medical (two) Branch weeks. levothyroxi 2020-09 Yes [id number] 50ug Take 1 [facility] ne 50 mcg 1-09 tablet by ity o f tablet 00:00: mouth [place] 00 every Medical morning. Branch fluticasone 2020-09 Yes [id number] 2{puff} Inhale 2 [facility] propionate 1-09 Puffs ity of (FLOVENT 00:00: every 12 [place] HFA) 110 00 (twelve) Medical mcg/actuati hours. Branch on inhaler Rinse mouth after each use. levalbutero 2020-09 Yes [id number] .63mg Inhale [facility] l 0.63 mg/3 -09 0.63 mg 3 ity of mL 00:00: (three) [place] nebulizer 00 times Medical solution daily as Branch needed for Wheezing or Shortness of Breath. clotrimazol 2020-09 Yes [id number] Apply to [facility] e-betametha 09 area(s) 2 ity of sone cream 00:00: (two) [place] 00 times Medical daily. Branch cyclobenzap 2020-09 Yes [id number] TAKE 1 [facility] rine 5 mg 09 TABLET BY ity o f tablet 00:00: MOUTH [place] 00 EVERY 8 Medical HOURS Branch NEEDED econazole 2020-09 Yes [id number] Apply to [facility] nitrate 1 % 10-04 area(s) 2 ity of cream 00:00: (two) [place] 00 times Medical daily. Branch albuterol 2020-09 Yes [id number] 2{puff} Inhale 2 [facility] (PROAIR 1-09 Puffs ity of HFA) 90 00:00: every 6 [place] mcg/actuati 00 (six) Medical on inhaler hours as Branc h needed for Wheezing or Shortness of Breath. triamcinolo 2020-09 Yes [id number] Apply to [facility] ne 0.025 % 10-04 area(s) 3 ity of ointment 00:00: (three) [place] 00 times Medical daily. For Branch itching cyanocobala 2020-09 Yes [id number] 1000ug 1 mL by [facility] min 1,000 -09 Intramuscu ity of mcg/mL 00:00: lar route [place] injection 00 every 2 Medical (two) Branch weeks. levothyroxi 2020-09 Yes [id number] 50ug Take 1 [facility] ne 50 mcg -09 tablet by ity o f tablet 00:00: mouth [place] 00 every Medical morning. Branch fluticasone 2020-09 Yes [id number] 2{puff} Inhale 2 [facility] propionate 1-09 Puffs ity of (FLOVENT 00:00: every 12 [place] HFA) 110 00 (twelve) Medical mcg/actuati hours. Branch on inhaler Rinse mouth after each use. levalbutero 2020-09 Yes [id number] .63mg Inhale [facility] l 0.63 mg/3 1-09 0.63 mg 3 ity of mL 00:00: (three) [place] nebulizer 00 times Medical solution daily as Branch needed for Wheezing or Shortness of Breath. clotrimazol 2020-09 Yes [id number] Apply to [facility] e-betametha 1-09 area(s) 2 ity of sone cream 00:00: (two) [place] 00 times Medical daily. Branch cyclobenzap 2020-09 Yes [id number] TAKE 1 [facility] rine 5 mg 1-09 TABLET BY ity o f tablet 00:00: MOUTH [place] 00 EVERY 8 Medical HOURS Branch NEEDED econazole 2020-09 Yes [id number] Apply to [facility] nitrate 1 % -09 area(s) 2 ity of cream 00:00: (two) [place] 00 times Medical daily. Branch albuterol 2020-09 Yes [id number] 2{puff} Inhale 2 [facility] (PROAIR 1-09 Puffs ity of HFA) 90 00:00: every 6 [place] mcg/actuati 00 (six) Medical on inhaler hours as Branc h needed for Wheezing or Shortness of Breath. triamcinolo 2020-09 Yes [id number] Apply to [facility] ne 0.025 % 1-09 area(s) 3 ity of ointment 00:00: (three) [place] 00 times Medical daily. For Branch itching cyanocobala 2020-09 Yes [id number] 1000ug 1 mL by [facility] min 1,000 1-09 Intramuscu ity of mcg/mL 00:00: lar route [place] injection 00 every 2 Medical (two) Branch weeks. levothyroxi 2020-09 Yes [id number] 50ug Take 1 [facility] ne 50 mcg 1-09 tablet by ity o f tablet 00:00: mouth [place] 00 every Medical morning. Branch fluticasone 2020-09 Yes [id number] 2{puff} Inhale 2 [facility] propionate 1-09 Puffs ity of (FLOVENT 00:00: every 12 [place] HFA) 110 00 (twelve) Medical mcg/actuati hours. Branch on inhaler Rinse mouth after each use. levalbutero 2020-09 Yes [id number] .63mg Inhale [facility] l 0.63 mg/3 1-09 0.63 mg 3 ity of mL 00:00: (three) [place] nebulizer 00 times Medical solution daily as Branch needed for Wheezing or Shortness of Breath. clotrimazol 2020-09 Yes [id number] Apply to [facility] e-betametha -09 area(s) 2 ity of sone cream 00:00: (two) [place] 00 times Medical daily. Branch cyclobenzap 2020-09 Yes [id number] TAKE 1 [facility] rine 5 mg 1-09 TABLET BY ity o f tablet 00:00: MOUTH [place] 00 EVERY 8 Medical HOURS Branch NEEDED econazole 2020-09 Yes [id number] Apply to [facility] nitrate 1 % 09 area(s) 2 ity of cream 00:00: (two) [place] 00 times Medical daily. Branch albuterol 2020-09 Yes [id number] 2{puff} Inhale 2 [facility] (PROAIR 1-09 Puffs ity of HFA) 90 00:00: every 6 [place] mcg/actuati 00 (six) Medical on inhaler hours as Branc h needed for Wheezing or Shortness of Breath. triamcinolo 2020-09 Yes [id number] Apply to [facility] ne 0.025 % 09 area(s) 3 ity of ointment 00:00: (three) [place] 00 times Medical daily. For Branch itching cyanocobala 2020-09 Yes [id number] 1000ug 1 mL by [facility] min 1,000 1-09 Intramuscu ity of mcg/mL 00:00: lar route [place] injection 00 every 2 Medical (two) Branch weeks. levothyroxi 2020-09 Yes [id number] 50ug Take 1 [facility] ne 50 mcg 09 tablet by ity o f tablet 00:00: mouth [place] 00 every Medical morning. Branch fluticasone 2020-09 Yes [id number] 2{puff} Inhale 2 [facility] propionate 1-09 Puffs ity of (FLOVENT 00:00: every 12 [place] HFA) 110 00 (twelve) Medical mcg/actuati hours. Branch on inhaler Rinse mouth after each use. levalbutero 2020-09 Yes [id number] .63mg Inhale [facility] l 0.63 mg/3 1-09 0.63 mg 3 ity of mL 00:00: (three) [place] nebulizer 00 times Medical solution daily as Branch needed for Wheezing or Shortness of Breath. clotrimazol 2020-09 Yes [id number] Apply to [facility] e-betametha - area(s) 2 ity of sone cream 00:00: (two) [place] 00 times Medical daily. Branch cyclobenzap 2020-09 Yes [id number] TAKE 1 [facility] rine 5 mg -09 TABLET BY ity o f tablet 00:00: MOUTH [place] 00 EVERY 8 Medical HOURS Branch NEEDED econazole 2020-09 Yes [id number] Apply to [facility] nitrate 1 % 10-04 area(s) 2 ity of cream 00:00: (two) [place] 00 times Medical daily. Branch albuterol 2020-09 Yes [id number] 2{puff} Inhale 2 [facility] (PROAIR 1-09 Puffs ity of HFA) 90 00:00: every 6 [place] mcg/actuati 00 (six) Medical on inhaler hours as Branc h needed for Wheezing or Shortness of Breath. triamcinolo 2020-09 Yes [id number] Apply to [facility] ne 0.025 % 10-04 area(s) 3 ity of ointment 00:00: (three) [place] 00 times Medical daily. For Branch itching cyanocobala 2020-09 Yes [id number] 1000ug 1 mL by [facility] min 1,000 1-09 Intramuscu ity of mcg/mL 00:00: lar route [place] injection 00 every 2 Medical (two) Branch weeks. levothyroxi 2020-09 Yes [id number] 50ug Take 1 [facility] ne 50 mcg - tablet by ity o f tablet 00:00: mouth [place] 00 every Medical morning. Branch fluticasone 2020-09 Yes [id number] 2{puff} Inhale 2 [facility] propionate 1-09 Puffs ity of (FLOVENT 00:00: every 12 [place] HFA) 110 00 (twelve) Medical mcg/actuati hours. Branch on inhaler Rinse mouth after each use. levalbutero 2020-09 Yes [id number] .63mg Inhale [facility] l 0.63 mg/3 1-09 0.63 mg 3 ity of mL 00:00: (three) [place] nebulizer 00 times Medical solution daily as Branch needed for Wheezing or Shortness of Breath. clotrimazol 2020-09 Yes [id number] Apply to [facility] e-betametha 1-09 area(s) 2 ity of sone cream 00:00: (two) [place] 00 times Medical daily. Branch cyclobenzap 2020-09 Yes [id number] TAKE 1 [facility] rine 5 mg 1-09 TABLET BY ity o f tablet 00:00: MOUTH [place] 00 EVERY 8 Medical HOURS Branch NEEDED econazole 2020-09 Yes [id number] Apply to [facility] nitrate 1 % -09 area(s) 2 ity of cream 00:00: (two) [place] 00 times Medical daily. Branch albuterol 2020-09 Yes [id number] 2{puff} Inhale 2 [facility] (PROAIR 1-09 Puffs ity of HFA) 90 00:00: every 6 [place] mcg/actuati 00 (six) Medical on inhaler hours as Branc h needed for Wheezing or Shortness of Breath. triamcinolo 2020-09 Yes [id number] Apply to [facility] ne 0.025 % 10-04 area(s) 3 ity of ointment 00:00: (three) [place] 00 times Medical daily. For Branch itching cyanocobala 2020-09 Yes [id number] 1000ug 1 mL by [facility] min 1,000 1-09 Intramuscu ity of mcg/mL 00:00: lar route [place] injection 00 every 2 Medical (two) Branch weeks. levothyroxi 2020-09 Yes [id number] 50ug Take 1 [facility] ne 50 mcg -09 tablet by ity o f tablet 00:00: mouth [place] 00 every Medical morning. Branch fluticasone 2020-09 Yes [id number] 2{puff} Inhale 2 [facility] propionate 1-09 Puffs ity of (FLOVENT 00:00: every 12 [place] HFA) 110 00 (twelve) Medical mcg/actuati hours. Branch on inhaler Rinse mouth after each use. levalbutero 2020-09 Yes [id number] .63mg Inhale [facility] l 0.63 mg/3 1-09 0.63 mg 3 ity of mL 00:00: (three) [place] nebulizer 00 times Medical solution daily as Branch needed for Wheezing or Shortness of Breath. clotrimazol 2020-09 Yes [id number] Apply to [facility] e-betametha -09 area(s) 2 ity of sone cream 00:00: (two) [place] 00 times Medical daily. Branch cyclobenzap 2020-09 Yes [id number] TAKE 1 [facility] rine 5 mg 1-09 TABLET BY ity o f tablet 00:00: MOUTH [place] 00 EVERY 8 Medical HOURS Branch NEEDED econazole 2020-09 Yes [id number] Apply to [facility] nitrate 1 % 09 area(s) 2 ity of cream 00:00: (two) [place] 00 times Medical daily. Branch albuterol 2020-09 Yes [id number] 2{puff} Inhale 2 [facility] (PROAIR 1-09 Puffs ity of HFA) 90 00:00: every 6 [place] mcg/actuati 00 (six) Medical on inhaler hours as Branc h needed for Wheezing or Shortness of Breath. triamcinolo 2020-09 Yes [id number] Apply to [facility] ne 0.025 % 10-04 area(s) 3 ity of ointment 00:00: (three) [place] 00 times Medical daily. For Branch itching cyanocobala 2020-09 Yes [id number] 1000ug 1 mL by [facility] min 1,000 1-09 Intramuscu ity of mcg/mL 00:00: lar route [place] injection 00 every 2 Medical (two) Branch weeks. levothyroxi 2020-09 Yes [id number] 50ug Take 1 [facility] ne 50 mcg -09 tablet by ity o f tablet 00:00: mouth [place] 00 every Medical morning. Branch fluticasone 2020-09 Yes [id number] 2{puff} Inhale 2 [facility] propionate 1-09 Puffs ity of (FLOVENT 00:00: every 12 [place] HFA) 110 00 (twelve) Medical mcg/actuati hours. Branch on inhaler Rinse mouth after each use. levalbutero 2020-09 Yes [id number] .63mg Inhale [facility] l 0.63 mg/3 1-09 0.63 mg 3 ity of mL 00:00: (three) [place] nebulizer 00 times Medical solution daily as Branch needed for Wheezing or Shortness of Breath. clotrimazol 2020-09 Yes [id number] Apply to [facility] e-betametha 1-09 area(s) 2 ity of sone cream 00:00: (two) [place] 00 times Medical daily. Branch cyclobenzap 2020-09 Yes [id number] TAKE 1 [facility] rine 5 mg 1-09 TABLET BY ity o f tablet 00:00: MOUTH [place] 00 EVERY 8 Medical HOURS Branch NEEDED econazole 2020-09 Yes [id number] Apply to [facility] nitrate 1 % -09 area(s) 2 ity of cream 00:00: (two) [place] 00 times Medical daily. Branch albuterol 2020-09 Yes [id number] 2{puff} Inhale 2 [facility] (PROAIR 1-09 Puffs ity of HFA) 90 00:00: every 6 [place] mcg/actuati 00 (six) Medical on inhaler hours as Branc h needed for Wheezing or Shortness of Breath. triamcinolo 2020-09 Yes [id number] Apply to [facility] ne 0.025 % 10-04 area(s) 3 ity of ointment 00:00: (three) [place] 00 times Medical daily. For Branch itching cyanocobala 2020-09 Yes [id number] 1000ug 1 mL by [facility] min 1,000 -09 Intramuscu ity of mcg/mL 00:00: lar route [place] injection 00 every 2 Medical (two) Branch weeks. levothyroxi 2020-09 Yes [id number] 50ug Take 1 [facility] ne 50 mcg -09 tablet by ity o f tablet 00:00: mouth [place] 00 every Medical morning. Branch fluticasone 2020-09 Yes [id number] 2{puff} Inhale 2 [facility] propionate 1-09 Puffs ity of (FLOVENT 00:00: every 12 [place] HFA) 110 00 (twelve) Medical mcg/actuati hours. Branch on inhaler Rinse mouth after each use. levalbutero 2020-09 Yes [id number] .63mg Inhale [facility] l 0.63 mg/3 1-09 0.63 mg 3 ity of mL 00:00: (three) [place] nebulizer 00 times Medical solution daily as Branch needed for Wheezing or Shortness of Breath. clotrimazol 2020-09 Yes [id number] Apply to [facility] e-betametha -09 area(s) 2 ity of sone cream 00:00: (two) [place] 00 times Medical daily. Branch cyclobenzap 2020-09 Yes [id number] TAKE 1 [facility] rine 5 mg 1-09 TABLET BY ity o f tablet 00:00: MOUTH [place] 00 EVERY 8 Medical HOURS Branch NEEDED econazole 2020-09 Yes [id number] Apply to [facility] nitrate 1 % 1-09 area(s) 2 ity of cream 00:00: (two) [place] 00 times Medical daily. Branch albuterol 2020-09 Yes [id number] 2{puff} Inhale 2 [facility] (PROAIR 1-09 Puffs ity of HFA) 90 00:00: every 6 [place] mcg/actuati 00 (six) Medical on inhaler hours as Branc h needed for Wheezing or Shortness of Breath. triamcinolo 2020-09 Yes [id number] Apply to [facility] ne 0.025 % 1-09 area(s) 3 ity of ointment 00:00: (three) [place] 00 times Medical daily. For Branch itching cyanocobala 2020-09 Yes [id number] 1000ug 1 mL by [facility] min 1,000 1-09 Intramuscu ity of mcg/mL 00:00: lar route [place] injection 00 every 2 Medical (two) Branch weeks. levothyroxi 2020-09 Yes [id number] 50ug Take 1 [facility] ne 50 mcg 1-09 tablet by ity o f tablet 00:00: mouth [place] 00 every Medical morning. Branch fluticasone 2020-09 Yes [id number] 2{puff} Inhale 2 [facility] propionate 1-09 Puffs ity of (FLOVENT 00:00: every 12 [place] HFA) 110 00 (twelve) Medical mcg/actuati hours. Branch on inhaler Rinse mouth after each use. levalbutero 2020-09 Yes [id number] .63mg Inhale [facility] l 0.63 mg/3 1-09 0.63 mg 3 ity of mL 00:00: (three) [place] nebulizer 00 times Medical solution daily as Branch needed for Wheezing or Shortness of Breath. clotrimazol 2020-09 Yes [id number] Apply to [facility] e-betametha 1-09 area(s) 2 ity of sone cream 00:00: (two) [place] 00 times Medical daily. Branch cyclobenzap 2020-09 Yes [id number] TAKE 1 [facility] rine 5 mg 1-09 TABLET BY ity o f tablet 00:00: MOUTH [place] 00 EVERY 8 Medical HOURS Branch NEEDED econazole 2020-09 Yes [id number] Apply to [facility] nitrate 1 % 1-09 area(s) 2 ity of cream 00:00: (two) [place] 00 times Medical daily. Branch albuterol 2020-09 Yes [id number] 2{puff} Inhale 2 [facility] (PROAIR 1-09 Puffs ity of HFA) 90 00:00: every 6 [place] mcg/actuati 00 (six) Medical on inhaler hours as Branc h needed for Wheezing or Shortness of Breath. triamcinolo 2020-09 Yes [id number] Apply to [facility] ne 0.025 % -09 area(s) 3 ity of ointment 00:00: (three) [place] 00 times Medical daily. For Branch itching cyanocobala 2020-09 Yes [id number] 1000ug 1 mL by [facility] min 1,000 -09 Intramuscu ity of mcg/mL 00:00: lar route [place] injection 00 every 2 Medical (two) Branch weeks. levothyroxi 2020-09 Yes [id number] 50ug Take 1 [facility] ne 50 mcg -09 tablet by ity o f tablet 00:00: mouth [place] 00 every Medical morning. Branch fluticasone 2020-09 Yes [id number] 2{puff} Inhale 2 [facility] propionate 1-09 Puffs ity of (FLOVENT 00:00: every 12 [place] HFA) 110 00 (twelve) Medical mcg/actuati hours. Branch on inhaler Rinse mouth after each use. levalbutero 2020-09 Yes [id number] .63mg Inhale [facility] l 0.63 mg/3 1-09 0.63 mg 3 ity of mL 00:00: (three) [place] nebulizer 00 times Medical solution daily as Branch needed for Wheezing or Shortness of Breath. clotrimazol 2020-09 Yes [id number] Apply to [facility] e-betametha -09 area(s) 2 ity of sone cream 00:00: (two) [place] 00 times Medical daily. Branch cyclobenzap 2020-09 Yes [id number] TAKE 1 [facility] rine 5 mg -09 TABLET BY ity o f tablet 00:00: MOUTH [place] 00 EVERY 8 Medical HOURS Branch NEEDED econazole 2020-09 Yes [id number] Apply to [facility] nitrate 1 % -09 area(s) 2 ity of cream 00:00: (two) [place] 00 times Medical daily. Branch albuterol 2020-09 Yes [id number] 2{puff} Inhale 2 [facility] (PROAIR 1-09 Puffs ity of HFA) 90 00:00: every 6 [place] mcg/actuati 00 (six) Medical on inhaler hours as Branc h needed for Wheezing or Shortness of Breath. triamcinolo 2020-09 Yes [id number] Apply to [facility] ne 0.025 % 1-09 area(s) 3 ity of ointment 00:00: (three) [place] 00 times Medical daily. For Branch itching cyanocobala 2020-09 Yes [id number] 1000ug 1 mL by [facility] min 1,000 1-09 Intramuscu ity of mcg/mL 00:00: lar route [place] injection 00 every 2 Medical (two) Branch weeks. levothyroxi 2020-09 Yes [id number] 50ug Take 1 [facility] ne 50 mcg 1-09 tablet by ity o f tablet 00:00: mouth [place] 00 every Medical morning. Branch fluticasone 2020-09 Yes [id number] 2{puff} Inhale 2 [facility] propionate 1-09 Puffs ity of (FLOVENT 00:00: every 12 [place] HFA) 110 00 (twelve) Medical mcg/actuati hours. Branch on inhaler Rinse mouth after each use. levalbutero 2020-09 Yes [id number] .63mg Inhale [facility] l 0.63 mg/3 1-09 0.63 mg 3 ity of mL 00:00: (three) [place] nebulizer 00 times Medical solution daily as Branch needed for Wheezing or Shortness of Breath. clotrimazol 2020-09 Yes [id number] Apply to [facility] e-betametha 1-09 area(s) 2 ity of sone cream 00:00: (two) [place] 00 times Medical daily. Branch cyclobenzap 2020-09 Yes [id number] TAKE 1 [facility] rine 5 mg 1-09 TABLET BY ity o f tablet 00:00: MOUTH [place] 00 EVERY 8 Medical HOURS Branch NEEDED econazole 2020-09 Yes [id number] Apply to [facility] nitrate 1 % 1-09 area(s) 2 ity of cream 00:00: (two) [place] 00 times Medical daily. Branch albuterol 2020-09 Yes [id number] 2{puff} Inhale 2 [facility] (PROAIR 1-09 Puffs ity of HFA) 90 00:00: every 6 [place] mcg/actuati 00 (six) Medical on inhaler hours as Branc h needed for Wheezing or Shortness of Breath. triamcinolo 2020-09 Yes [id number] Apply to [facility] ne 0.025 % 1-09 area(s) 3 ity of ointment 00:00: (three) [place] 00 times Medical daily. For Branch itching cyanocobala 2020-09 Yes [id number] 1000ug 1 mL by [facility] min 1,000 -09 Intramuscu ity of mcg/mL 00:00: lar route [place] injection 00 every 2 Medical (two) Branch weeks. levothyroxi 2020-09 Yes [id number] 50ug Take 1 [facility] ne 50 mcg -09 tablet by ity o f tablet 00:00: mouth [place] 00 every Medical morning. Branch fluticasone 2020-09 Yes [id number] 2{puff} Inhale 2 [facility] propionate 1-09 Puffs ity of (FLOVENT 00:00: every 12 [place] HFA) 110 00 (twelve) Medical mcg/actuati hours. Branch on inhaler Rinse mouth after each use. levalbutero 2020-09 Yes [id number] .63mg Inhale [facility] l 0.63 mg/3 1-09 0.63 mg 3 ity of mL 00:00: (three) [place] nebulizer 00 times Medical solution daily as Branch needed for Wheezing or Shortness of Breath. clotrimazol 2020-09 Yes [id number] Apply to [facility] e-betametha - area(s) 2 ity of sone cream 00:00: (two) [place] 00 times Medical daily. Branch cyclobenzap 2020-09 Yes [id number] TAKE 1 [facility] rine 5 mg 1-09 TABLET BY ity o f tablet 00:00: MOUTH [place] 00 EVERY 8 Medical HOURS Branch NEEDED econazole 2020-09 Yes [id number] Apply to [facility] nitrate 1 % -09 area(s) 2 ity of cream 00:00: (two) [place] 00 times Medical daily. Branch albuterol 2020-09 Yes [id number] 2{puff} Inhale 2 [facility] (PROAIR 1-09 Puffs ity of HFA) 90 00:00: every 6 [place] mcg/actuati 00 (six) Medical on inhaler hours as Branc h needed for Wheezing or Shortness of Breath. triamcinolo 2020-09 Yes [id number] Apply to [facility] ne 0.025 % -09 area(s) 3 ity of ointment 00:00: (three) [place] 00 times Medical daily. For Branch itching cyanocobala 2020-09 Yes [id number] 1000ug 1 mL by [facility] min 1,000 -09 Intramuscu ity of mcg/mL 00:00: lar route [place] injection 00 every 2 Medical (two) Branch weeks. levothyroxi 2020-09 Yes [id number] 50ug Take 1 [facility] ne 50 mcg -09 tablet by ity o f tablet 00:00: mouth [place] 00 every Medical morning. Branch fluticasone 2020-09 Yes [id number] 2{puff} Inhale 2 [facility] propionate 1-09 Puffs ity of (FLOVENT 00:00: every 12 [place] HFA) 110 00 (twelve) Medical mcg/actuati hours. Branch on inhaler Rinse mouth after each use. levalbutero 2020-09 Yes [id number] .63mg Inhale [facility] l 0.63 mg/3 -09 0.63 mg 3 ity of mL 00:00: (three) [place] nebulizer 00 times Medical solution daily as Branch needed for Wheezing or Shortness of Breath. clotrimazol 2020-09 Yes [id number] Apply to [facility] e-betametha 10-04 area(s) 2 ity of sone cream 00:00: (two) [place] 00 times Medical daily. Branch cyclobenzap 2020-09 Yes [id number] TAKE 1 [facility] rine 5 mg -09 TABLET BY ity o f tablet 00:00: MOUTH [place] 00 EVERY 8 Medical HOURS Branch NEEDED econazole 2020-09 Yes [id number] Apply to [facility] nitrate 1 % -09 area(s) 2 ity of cream 00:00: (two) [place] 00 times Medical daily. Branch albuterol 2020-09 Yes [id number] 2{puff} Inhale 2 [facility] (PROAIR 1-09 Puffs ity of HFA) 90 00:00: every 6 [place] mcg/actuati 00 (six) Medical on inhaler hours as Branc h needed for Wheezing or Shortness of Breath. triamcinolo 2020-09 Yes [id number] Apply to [facility] ne 0.025 % -09 area(s) 3 ity of ointment 00:00: (three) [place] 00 times Medical daily. For Branch itching cyanocobala 2020-09 Yes [id number] 1000ug 1 mL by [facility] min 1,000 -09 Intramuscu ity of mcg/mL 00:00: lar route [place] injection 00 every 2 Medical (two) Branch weeks. levothyroxi 2020-09 Yes [id number] 50ug Take 1 [facility] ne 50 mcg -09 tablet by ity o f tablet 00:00: mouth [place] 00 every Medical morning. Branch fluticasone 2020-09 Yes [id number] 2{puff} Inhale 2 [facility] propionate 1-09 Puffs ity of (FLOVENT 00:00: every 12 [place] HFA) 110 00 (twelve) Medical mcg/actuati hours. Branch on inhaler Rinse mouth after each use. levalbutero 2020-09 Yes [id number] .63mg Inhale [facility] l 0.63 mg/3 1-09 0.63 mg 3 ity of mL 00:00: (three) [place] nebulizer 00 times Medical solution daily as Branch needed for Wheezing or Shortness of Breath. clotrimazol 2020-09 Yes [id number] Apply to [facility] e-betametha 10-04 area(s) 2 ity of sone cream 00:00: (two) [place] 00 times Medical daily. Branch cyclobenzap 2020-09 Yes [id number] TAKE 1 [facility] rine 5 mg -09 TABLET BY ity o f tablet 00:00: MOUTH [place] 00 EVERY 8 Medical HOURS Branch NEEDED econazole 2020-09 Yes [id number] Apply to [facility] nitrate 1 % 09 area(s) 2 ity of cream 00:00: (two) [place] 00 times Medical daily. Branch albuterol 2020-09 Yes [id number] 2{puff} Inhale 2 [facility] (PROAIR 1-09 Puffs ity of HFA) 90 00:00: every 6 [place] mcg/actuati 00 (six) Medical on inhaler hours as Branc h needed for Wheezing or Shortness of Breath. triamcinolo 2020-09 Yes [id number] Apply to [facility] ne 0.025 % 10-04 area(s) 3 ity of ointment 00:00: (three) [place] 00 times Medical daily. For Branch itching cyanocobala 2020-09 Yes [id number] 1000ug 1 mL by [facility] min 1,000 -09 Intramuscu ity of mcg/mL 00:00: lar route [place] injection 00 every 2 Medical (two) Branch weeks. levothyroxi 2020-09 Yes [id number] 50ug Take 1 [facility] ne 50 mcg -09 tablet by ity o f tablet 00:00: mouth [place] 00 every Medical morning. Branch fluticasone 2020-09 Yes [id number] 2{puff} Inhale 2 [facility] propionate -09 Puffs ity of (FLOVENT 00:00: every 12 [place] HFA) 110 00 (twelve) Medical mcg/actuati hours. Branch on inhaler Rinse mouth after each use. levalbutero 2020-09 Yes [id number] .63mg Inhale [facility] l 0.63 mg/3 -09 0.63 mg 3 ity of mL 00:00: (three) [place] nebulizer 00 times Medical solution daily as Branch needed for Wheezing or Shortness of Breath. clotrimazol 2020-09 Yes [id number] Apply to [facility] e-betametha 10-04 area(s) 2 ity of sone cream 00:00: (two) [place] 00 times Medical daily. Branch cyclobenzap 2020-09 Yes [id number] TAKE 1 [facility] rine 5 mg 09 TABLET BY ity o f tablet 00:00: MOUTH [place] 00 EVERY 8 Medical HOURS Branch NEEDED econazole 2020-09 Yes [id number] Apply to [facility] nitrate 1 % 09 area(s) 2 ity of cream 00:00: (two) [place] 00 times Medical daily. Branch albuterol 2020-09 Yes [id number] 2{puff} Inhale 2 [facility] (PROAIR 1-09 Puffs ity of HFA) 90 00:00: every 6 [place] mcg/actuati 00 (six) Medical on inhaler hours as Branc h needed for Wheezing or Shortness of Breath. triamcinolo 2020-09 Yes [id number] Apply to [facility] ne 0.025 % -09 area(s) 3 ity of ointment 00:00: (three) [place] 00 times Medical daily. For Branch itching cyanocobala 2020-09 Yes [id number] 1000ug 1 mL by [facility] min 1,000 -09 Intramuscu ity of mcg/mL 00:00: lar route [place] injection 00 every 2 Medical (two) Branch weeks. levothyroxi 2020-09 Yes [id number] 50ug Take 1 [facility] ne 50 mcg 1-09 tablet by ity o f tablet 00:00: mouth [place] 00 every Medical morning. Branch fluticasone 2020-09 Yes [id number] 2{puff} Inhale 2 [facility] propionate 1-09 Puffs ity of (FLOVENT 00:00: every 12 [place] HFA) 110 00 (twelve) Medical mcg/actuati hours. Branch on inhaler Rinse mouth after each use. levalbutero 2020-09 Yes [id number] .63mg Inhale [facility] l 0.63 mg/3 -09 0.63 mg 3 ity of mL 00:00: (three) [place] nebulizer 00 times Medical solution daily as Branch needed for Wheezing or Shortness of Breath. clotrimazol 2020-09 Yes [id number] Apply to [facility] e-betametha 10-04 area(s) 2 ity of sone cream 00:00: (two) [place] 00 times Medical daily. Branch cyclobenzap 2020-09 Yes [id number] TAKE 1 [facility] rine 5 mg -09 TABLET BY ity o f tablet 00:00: MOUTH [place] 00 EVERY 8 Medical HOURS Branch NEEDED econazole 2020-09 Yes [id number] Apply to [facility] nitrate 1 % -09 area(s) 2 ity of cream 00:00: (two) [place] 00 times Medical daily. Branch albuterol 2020-09 Yes [id number] 2{puff} Inhale 2 [facility] (PROAIR 1-09 Puffs ity of HFA) 90 00:00: every 6 [place] mcg/actuati 00 (six) Medical on inhaler hours as Branc h needed for Wheezing or Shortness of Breath. triamcinolo 2020-09 Yes [id number] Apply to [facility] ne 0.025 % 1-09 area(s) 3 ity of ointment 00:00: (three) [place] 00 times Medical daily. For Branch itching cyanocobala 2020-09 Yes [id number] 1000ug 1 mL by [facility] min 1,000 1-09 Intramuscu ity of mcg/mL 00:00: lar route [place] injection 00 every 2 Medical (two) Branch weeks. levothyroxi 2020-09 Yes [id number] 50ug Take 1 [facility] ne 50 mcg 1-09 tablet by ity o f tablet 00:00: mouth [place] 00 every Medical morning. Branch fluticasone 2020-09 Yes [id number] 2{puff} Inhale 2 [facility] propionate 1-09 Puffs ity of (FLOVENT 00:00: every 12 [place] HFA) 110 00 (twelve) Medical mcg/actuati hours. Branch on inhaler Rinse mouth after each use. levalbutero 2020-09 Yes [id number] .63mg Inhale [facility] l 0.63 mg/3 1-09 0.63 mg 3 ity of mL 00:00: (three) [place] nebulizer 00 times Medical solution daily as Branch needed for Wheezing or Shortness of Breath. clotrimazol 2020-09 Yes [id number] Apply to [facility] e-betametha 1-09 area(s) 2 ity of sone cream 00:00: (two) [place] 00 times Medical daily. Branch cyclobenzap 2020-09 Yes [id number] TAKE 1 [facility] rine 5 mg -09 TABLET BY ity o f tablet 00:00: MOUTH [place] 00 EVERY 8 Medical HOURS Branch NEEDED econazole 2020-09 Yes [id number] Apply to [facility] nitrate 1 % -09 area(s) 2 ity of cream 00:00: (two) [place] 00 times Medical daily. Branch albuterol 2020-09 Yes [id number] 2{puff} Inhale 2 [facility] (PROAIR 1-09 Puffs ity of HFA) 90 00:00: every 6 [place] mcg/actuati 00 (six) Medical on inhaler hours as Branc h needed for Wheezing or Shortness of Breath. triamcinolo 2020-09 Yes [id number] Apply to [facility] ne 0.025 % 1-09 area(s) 3 ity of ointment 00:00: (three) [place] 00 times Medical daily. For Branch itching cyanocobala 2020-09 Yes [id number] 1000ug 1 mL by [facility] min 1,000 1-09 Intramuscu ity of mcg/mL 00:00: lar route [place] injection 00 every 2 Medical (two) Branch weeks. levothyroxi 2020-09 Yes [id number] 50ug Take 1 [facility] ne 50 mcg 1-09 tablet by ity o f tablet 00:00: mouth [place] 00 every Medical morning. Branch fluticasone 2020-09 Yes [id number] 2{puff} Inhale 2 [facility] propionate 1-09 Puffs ity of (FLOVENT 00:00: every 12 [place] HFA) 110 00 (twelve) Medical mcg/actuati hours. Branch on inhaler Rinse mouth after each use. levalbutero 2020-09 Yes [id number] .63mg Inhale [facility] l 0.63 mg/3 1-09 0.63 mg 3 ity of mL 00:00: (three) [place] nebulizer 00 times Medical solution daily as Branch needed for Wheezing or Shortness of Breath. clotrimazol 2020-09 Yes [id number] Apply to [facility] e-betametha 1-09 area(s) 2 ity of sone cream 00:00: (two) [place] 00 times Medical daily. Branch cyclobenzap 2020-09 Yes [id number] TAKE 1 [facility] rine 5 mg 1-09 TABLET BY ity o f tablet 00:00: MOUTH [place] 00 EVERY 8 Medical HOURS Branch NEEDED econazole 2020-09 Yes [id number] Apply to [facility] nitrate 1 % 1-09 area(s) 2 ity of cream 00:00: (two) [place] 00 times Medical daily. Branch albuterol 2020-09 Yes [id number] 2{puff} Inhale 2 [facility] (PROAIR 1-09 Puffs ity of HFA) 90 00:00: every 6 [place] mcg/actuati 00 (six) Medical on inhaler hours as Branc h needed for Wheezing or Shortness of Breath. triamcinolo 2020-09 Yes [id number] Apply to [facility] ne 0.025 % 1-09 area(s) 3 ity of ointment 00:00: (three) [place] 00 times Medical daily. For Branch itching cyanocobala 2020-09 Yes [id number] 1000ug 1 mL by [facility] min 1,000 1-09 Intramuscu ity of mcg/mL 00:00: lar route [place] injection 00 every 2 Medical (two) Branch weeks. levothyroxi 2020-09 Yes [id number] 50ug Take 1 [facility] ne 50 mcg 1-09 tablet by ity o f tablet 00:00: mouth [place] 00 every Medical morning. Branch fluticasone 2020-09 Yes [id number] 2{puff} Inhale 2 [facility] propionate 1-09 Puffs ity of (FLOVENT 00:00: every 12 [place] HFA) 110 00 (twelve) Medical mcg/actuati hours. Branch on inhaler Rinse mouth after each use. levalbutero 2020-09 Yes [id number] .63mg Inhale [facility] l 0.63 mg/3 1-09 0.63 mg 3 ity of mL 00:00: (three) [place] nebulizer 00 times Medical solution daily as Branch needed for Wheezing or Shortness of Breath. clotrimazol 2020-09 Yes [id number] Apply to [facility] e-betametha -09 area(s) 2 ity of sone cream 00:00: (two) [place] 00 times Medical daily. Branch cyclobenzap 2020-09 Yes [id number] TAKE 1 [facility] rine 5 mg 1-09 TABLET BY ity o f tablet 00:00: MOUTH [place] 00 EVERY 8 Medical HOURS Branch NEEDED econazole 2020-09 Yes [id number] Apply to [facility] nitrate 1 % -09 area(s) 2 ity of cream 00:00: (two) [place] 00 times Medical daily. Branch albuterol 2020-09 Yes [id number] 2{puff} Inhale 2 [facility] (PROAIR 1-09 Puffs ity of HFA) 90 00:00: every 6 [place] mcg/actuati 00 (six) Medical on inhaler hours as Branc h needed for Wheezing or Shortness of Breath. triamcinolo 2020-09 Yes [id number] Apply to [facility] ne 0.025 % 1-09 area(s) 3 ity of ointment 00:00: (three) [place] 00 times Medical daily. For Branch itching cyanocobala 2020-09 Yes [id number] 1000ug 1 mL by [facility] min 1,000 1-09 Intramuscu ity of mcg/mL 00:00: lar route [place] injection 00 every 2 Medical (two) Branch weeks. levothyroxi 2020-09 Yes [id number] 50ug Take 1 [facility] ne 50 mcg 1-09 tablet by ity o f tablet 00:00: mouth [place] 00 every Medical morning. Branch fluticasone 2020-09 Yes [id number] 2{puff} Inhale 2 [facility] propionate 1-09 Puffs ity of (FLOVENT 00:00: every 12 [place] HFA) 110 00 (twelve) Medical mcg/actuati hours. Branch on inhaler Rinse mouth after each use. levalbutero 2020-09 Yes [id number] .63mg Inhale [facility] l 0.63 mg/3 1-09 0.63 mg 3 ity of mL 00:00: (three) [place] nebulizer 00 times Medical solution daily as Branch needed for Wheezing or Shortness of Breath. clotrimazol 2020-09 Yes [id number] Apply to [facility] e-betametha 1-09 area(s) 2 ity of sone cream 00:00: (two) [place] 00 times Medical daily. Branch cyclobenzap 2020-09 Yes [id number] TAKE 1 [facility] rine 5 mg 1-09 TABLET BY ity o f tablet 00:00: MOUTH [place] 00 EVERY 8 Medical HOURS Branch NEEDED econazole 2020-09 Yes [id number] Apply to [facility] nitrate 1 % 1-09 area(s) 2 ity of cream 00:00: (two) [place] 00 times Medical daily. Branch albuterol 2020-09 Yes [id number] 2{puff} Inhale 2 [facility] (PROAIR 1-09 Puffs ity of HFA) 90 00:00: every 6 [place] mcg/actuati 00 (six) Medical on inhaler hours as Branc h needed for Wheezing or Shortness of Breath. triamcinolo 2020-09 Yes [id number] Apply to [facility] ne 0.025 % 1-09 area(s) 3 ity of ointment 00:00: (three) [place] 00 times Medical daily. For Branch itching cyanocobala 2020-09 Yes [id number] 1000ug 1 mL by [facility] min 1,000 1-09 Intramuscu ity of mcg/mL 00:00: lar route [place] injection 00 every 2 Medical (two) Branch weeks. levothyroxi 2020-09 Yes [id number] 50ug Take 1 [facility] ne 50 mcg 1-09 tablet by ity o f tablet 00:00: mouth [place] 00 every Medical morning. Branch fluticasone 2020-09 Yes [id number] 2{puff} Inhale 2 [facility] propionate 1-09 Puffs ity of (FLOVENT 00:00: every 12 [place] HFA) 110 00 (twelve) Medical mcg/actuati hours. Branch on inhaler Rinse mouth after each use. levalbutero 2020-09 Yes [id number] .63mg Inhale [facility] l 0.63 mg/3 1-09 0.63 mg 3 ity of mL 00:00: (three) [place] nebulizer 00 times Medical solution daily as Branch needed for Wheezing or Shortness of Breath. clotrimazol 2020-09 Yes [id number] Apply to [facility] e-betametha -09 area(s) 2 ity of sone cream 00:00: (two) [place] 00 times Medical daily. Branch cyclobenzap 2020-09 Yes [id number] TAKE 1 [facility] rine 5 mg -09 TABLET BY ity o f tablet 00:00: MOUTH [place] 00 EVERY 8 Medical HOURS Branch NEEDED econazole 2020-09 Yes [id number] Apply to [facility] nitrate 1 % 10-04 area(s) 2 ity of cream 00:00: (two) [place] 00 times Medical daily. Branch albuterol 2020-09 Yes [id number] 2{puff} Inhale 2 [facility] (PROAIR 1-09 Puffs ity of HFA) 90 00:00: every 6 [place] mcg/actuati 00 (six) Medical on inhaler hours as Branc h needed for Wheezing or Shortness of Breath. triamcinolo 2020-09 Yes [id number] Apply to [facility] ne 0.025 % -09 area(s) 3 ity of ointment 00:00: (three) [place] 00 times Medical daily. For Branch itching cyanocobala 2020-09 Yes [id number] 1000ug 1 mL by [facility] min 1,000 1-09 Intramuscu ity of mcg/mL 00:00: lar route [place] injection 00 every 2 Medical (two) Branch weeks. levothyroxi 2020-09 Yes [id number] 50ug Take 1 [facility] ne 50 mcg 1-09 tablet by ity o f tablet 00:00: mouth [place] 00 every Medical morning. Branch fluticasone 2020-09 Yes [id number] 2{puff} Inhale 2 [facility] propionate 1-09 Puffs ity of (FLOVENT 00:00: every 12 [place] HFA) 110 00 (twelve) Medical mcg/actuati hours. Branch on inhaler Rinse mouth after each use. levalbutero 2020-09 Yes [id number] .63mg Inhale [facility] l 0.63 mg/3 1-09 0.63 mg 3 ity of mL 00:00: (three) [place] nebulizer 00 times Medical solution daily as Branch needed for Wheezing or Shortness of Breath. clotrimazol 2020-09 Yes [id number] Apply to [facility] e-betametha -09 area(s) 2 ity of sone cream 00:00: (two) [place] 00 times Medical daily. Branch cyclobenzap 2020-09 Yes [id number] TAKE 1 [facility] rine 5 mg -09 TABLET BY ity o f tablet 00:00: MOUTH [place] 00 EVERY 8 Medical HOURS Branch NEEDED econazole 2020-09 Yes [id number] Apply to [facility] nitrate 1 % -09 area(s) 2 ity of cream 00:00: (two) [place] 00 times Medical daily. Branch albuterol 2020-09 Yes [id number] 2{puff} Inhale 2 [facility] (PROAIR 1-09 Puffs ity of HFA) 90 00:00: every 6 [place] mcg/actuati 00 (six) Medical on inhaler hours as Branc h needed for Wheezing or Shortness of Breath. triamcinolo 2020-09 Yes [id number] Apply to [facility] ne 0.025 % 1-09 area(s) 3 ity of ointment 00:00: (three) [place] 00 times Medical daily. For Branch itching cyanocobala 2020-09 Yes [id number] 1000ug 1 mL by [facility] min 1,000 1-09 Intramuscu ity of mcg/mL 00:00: lar route [place] injection 00 every 2 Medical (two) Branch weeks. levothyroxi 2020-09 Yes [id number] 50ug Take 1 [facility] ne 50 mcg 1-09 tablet by ity o f tablet 00:00: mouth [place] 00 every Medical morning. Branch fluticasone 2020-09 Yes [id number] 2{puff} Inhale 2 [facility] propionate 1-09 Puffs ity of (FLOVENT 00:00: every 12 [place] HFA) 110 00 (twelve) Medical mcg/actuati hours. Branch on inhaler Rinse mouth after each use. levalbutero 2020-09 Yes [id number] .63mg Inhale [facility] l 0.63 mg/3 1-09 0.63 mg 3 ity of mL 00:00: (three) [place] nebulizer 00 times Medical solution daily as Branch needed for Wheezing or Shortness of Breath. clotrimazol 2020-09 Yes [id number] Apply to [facility] e-betametha 1-09 area(s) 2 ity of sone cream 00:00: (two) [place] 00 times Medical daily. Branch cyclobenzap 2020-09 Yes [id number] TAKE 1 [facility] rine 5 mg -09 TABLET BY ity o f tablet 00:00: MOUTH [place] 00 EVERY 8 Medical HOURS Branch NEEDED econazole 2020-09 Yes [id number] Apply to [facility] nitrate 1 % -09 area(s) 2 ity of cream 00:00: (two) [place] 00 times Medical daily. Branch albuterol 2020-09 Yes [id number] 2{puff} Inhale 2 [facility] (PROAIR 1-09 Puffs ity of HFA) 90 00:00: every 6 [place] mcg/actuati 00 (six) Medical on inhaler hours as Branc h needed for Wheezing or Shortness of Breath. triamcinolo 2020-09 Yes [id number] Apply to [facility] ne 0.025 % 1-09 area(s) 3 ity of ointment 00:00: (three) [place] 00 times Medical daily. For Branch itching cyanocobala 2020-09 Yes [id number] 1000ug 1 mL by [facility] min 1,000 1-09 Intramuscu ity of mcg/mL 00:00: lar route [place] injection 00 every 2 Medical (two) Branch weeks. levothyroxi 2020-09 Yes [id number] 50ug Take 1 [facility] ne 50 mcg 1-09 tablet by ity o f tablet 00:00: mouth [place] 00 every Medical morning. Branch fluticasone 2020-09 Yes [id number] 2{puff} Inhale 2 [facility] propionate 1-09 Puffs ity of (FLOVENT 00:00: every 12 [place] HFA) 110 00 (twelve) Medical mcg/actuati hours. Branch on inhaler Rinse mouth after each use. levalbutero 2020-09 Yes [id number] .63mg Inhale [facility] l 0.63 mg/3 1-09 0.63 mg 3 ity of mL 00:00: (three) [place] nebulizer 00 times Medical solution daily as Branch needed for Wheezing or Shortness of Breath. clotrimazol 2020-09 Yes [id number] Apply to [facility] e-betametha -09 area(s) 2 ity of sone cream 00:00: (two) [place] 00 times Medical daily. Branch cyclobenzap 2020-09 Yes [id number] TAKE 1 [facility] rine 5 mg -09 TABLET BY ity o f tablet 00:00: MOUTH [place] 00 EVERY 8 Medical HOURS Branch NEEDED econazole 2020-09 Yes [id number] Apply to [facility] nitrate 1 % - area(s) 2 ity of cream 00:00: (two) [place] 00 times Medical daily. Branch albuterol 2020-09 Yes [id number] 2{puff} Inhale 2 [facility] (PROAIR 1-09 Puffs ity of HFA) 90 00:00: every 6 [place] mcg/actuati 00 (six) Medical on inhaler hours as Branc h needed for Wheezing or Shortness of Breath. triamcinolo 2020-09 Yes [id number] Apply to [facility] ne 0.025 % -09 area(s) 3 ity of ointment 00:00: (three) [place] 00 times Medical daily. For Branch itching cyanocobala 2020-09 Yes [id number] 1000ug 1 mL by [facility] min 1,000 1-09 Intramuscu ity of mcg/mL 00:00: lar route [place] injection 00 every 2 Medical (two) Branch weeks. levothyroxi 2020-09 Yes [id number] 50ug Take 1 [facility] ne 50 mcg 1-09 tablet by ity o f tablet 00:00: mouth [place] 00 every Medical morning. Branch fluticasone 2020-09 Yes [id number] 2{puff} Inhale 2 [facility] propionate 1-09 Puffs ity of (FLOVENT 00:00: every 12 [place] HFA) 110 00 (twelve) Medical mcg/actuati hours. Branch on inhaler Rinse mouth after each use. levalbutero 2020-09 Yes [id number] .63mg Inhale [facility] l 0.63 mg/3 1-09 0.63 mg 3 ity of mL 00:00: (three) [place] nebulizer 00 times Medical solution daily as Branch needed for Wheezing or Shortness of Breath. clotrimazol 2020-09 Yes [id number] Apply to [facility] e-betametha 09 area(s) 2 ity of sone cream 00:00: (two) [place] 00 times Medical daily. Branch cyclobenzap 2020-09 Yes [id number] TAKE 1 [facility] rine 5 mg 09 TABLET BY ity o f tablet 00:00: MOUTH [place] 00 EVERY 8 Medical HOURS Branch NEEDED econazole 2020-09 Yes [id number] Apply to [facility] nitrate 1 % 10-04 area(s) 2 ity of cream 00:00: (two) [place] 00 times Medical daily. Branch albuterol 2020-09 Yes [id number] 2{puff} Inhale 2 [facility] (PROAIR 1-09 Puffs ity of HFA) 90 00:00: every 6 [place] mcg/actuati 00 (six) Medical on inhaler hours as Branc h needed for Wheezing or Shortness of Breath. triamcinolo 2020-09 Yes [id number] Apply to [facility] ne 0.025 % 10-04 area(s) 3 ity of ointment 00:00: (three) [place] 00 times Medical daily. For Branch itching cyanocobala 2020-09 Yes [id number] 1000ug 1 mL by [facility] min 1,000 -09 Intramuscu ity of mcg/mL 00:00: lar route [place] injection 00 every 2 Medical (two) Branch weeks. levothyroxi 2020-09 Yes [id number] 50ug Take 1 [facility] ne 50 mcg -09 tablet by ity o f tablet 00:00: mouth [place] 00 every Medical morning. Branch fluticasone 2020-09 Yes [id number] 2{puff} Inhale 2 [facility] propionate 1-09 Puffs ity of (FLOVENT 00:00: every 12 [place] HFA) 110 00 (twelve) Medical mcg/actuati hours. Branch on inhaler Rinse mouth after each use. levalbutero 2020-09 Yes [id number] .63mg Inhale [facility] l 0.63 mg/3 1-09 0.63 mg 3 ity of mL 00:00: (three) [place] nebulizer 00 times Medical solution daily as Branch needed for Wheezing or Shortness of Breath. clotrimazol 2020-09 Yes [id number] Apply to [facility] e-betametha 09 area(s) 2 ity of sone cream 00:00: (two) [place] 00 times Medical daily. Branch cyclobenzap 2020-09 Yes [id number] TAKE 1 [facility] rine 5 mg 10-04 TABLET BY ity o f tablet 00:00: MOUTH [place] 00 EVERY 8 Medical HOURS Branch NEEDED econazole 2020-09 Yes [id number] Apply to [facility] nitrate 1 % 10-04 area(s) 2 ity of cream 00:00: (two) [place] 00 times Medical daily. Branch albuterol 2020-09 Yes [id number] 2{puff} Inhale 2 [facility] (PROAIR 1-09 Puffs ity of HFA) 90 00:00: every 6 [place] mcg/actuati 00 (six) Medical on inhaler hours as Branc h needed for Wheezing or Shortness of Breath. triamcinolo 2020-09 Yes [id number] Apply to [facility] ne 0.025 % 10-04 area(s) 3 ity of ointment 00:00: (three) [place] 00 times Medical daily. For Branch itching cyanocobala 2020-09 Yes [id number] 1000ug 1 mL by [facility] min 1,000 1-09 Intramuscu ity of mcg/mL 00:00: lar route [place] injection 00 every 2 Medical (two) Branch weeks. fluticasone 2020-09 Yes [id number] 2{puff} Inhale 2 [facility] propionate 1-09 Puffs ity of (FLOVENT 00:00: every 12 [place] HFA) 110 00 (twelve) Medical mcg/actuati hours. Branch on inhaler Rinse mouth after each use. levalbutero 2020-09 Yes [id number] .63mg Inhale [facility] l 0.63 mg/3 1-09 0.63 mg 3 ity of mL 00:00: (three) [place] nebulizer 00 times Medical solution daily as Branch needed for Wheezing or Shortness of Breath. clotrimazol 2020-09 Yes [id number] Apply to [facility] e-betametha 10-04 area(s) 2 ity of sone cream 00:00: (two) [place] 00 times Medical daily. Branch cyclobenzap 2020-09 Yes [id number] TAKE 1 [facility] rine 5 mg 10-04 TABLET BY ity o f tablet 00:00: MOUTH [place] 00 EVERY 8 Medical HOURS Branch NEEDED econazole 2020-09 Yes [id number] Apply to [facility] nitrate 1 % 10-04 area(s) 2 ity of cream 00:00: (two) [place] 00 times Medical daily. Branch albuterol 2020-09 Yes [id number] 2{puff} Inhale 2 [facility] (PROAIR 1-09 Puffs ity of HFA) 90 00:00: every 6 [place] mcg/actuati 00 (six) Medical on inhaler hours as Branc h needed for Wheezing or Shortness of Breath. triamcinolo 2020-09 Yes [id number] Apply to [facility] ne 0.025 % 10-04 area(s) 3 ity of ointment 00:00: (three) [place] 00 times Medical daily. For Branch itching cyanocobala 2020-09 Yes [id number] 1000ug 1 mL by [facility] min 1,000 1-09 Intramuscu ity of mcg/mL 00:00: lar route [place] injection 00 every 2 Medical (two) Branch weeks. fluticasone 2020-09 Yes [id number] 2{puff} Inhale 2 [facility] propionate 1-09 Puffs ity of (FLOVENT 00:00: every 12 [place] HFA) 110 00 (twelve) Medical mcg/actuati hours. Branch on inhaler Rinse mouth after each use. levalbutero 2020-09 Yes [id number] .63mg Inhale [facility] l 0.63 mg/3 09 0.63 mg 3 ity of mL 00:00: (three) [place] nebulizer 00 times Medical solution daily as Branch needed for Wheezing or Shortness of Breath. clotrimazol 2020-09 Yes [id number] Apply to [facility] e-betametha 10-04 area(s) 2 ity of sone cream 00:00: (two) [place] 00 times Medical daily. Branch cyclobenzap 2020-09 Yes [id number] TAKE 1 [facility] rine 5 mg 1-09 TABLET BY ity o f tablet 00:00: MOUTH [place] 00 EVERY 8 Medical HOURS Branch NEEDED econazole 2020-09 Yes [id number] Apply to [facility] nitrate 1 % 09 area(s) 2 ity of cream 00:00: (two) [place] 00 times Medical daily. Branch albuterol 2020-09 Yes [id number] 2{puff} Inhale 2 [facility] (PROAIR 1-09 Puffs ity of HFA) 90 00:00: every 6 [place] mcg/actuati 00 (six) Medical on inhaler hours as Branc h needed for Wheezing or Shortness of Breath. triamcinolo 2020-09 Yes [id number] Apply to [facility] ne 0.025 % 10-04 area(s) 3 ity of ointment 00:00: (three) [place] 00 times Medical daily. For Branch itching cyanocobala 2020-09 Yes [id number] 1000ug 1 mL by [facility] min 1,000 1-09 Intramuscu ity of mcg/mL 00:00: lar route [place] injection 00 every 2 Medical (two) Branch weeks. levalbutero 2020-09 Yes [id number] .63mg Inhale [facility] l 0.63 mg/3 1-09 0.63 mg 3 ity of mL 00:00: (three) [place] nebulizer 00 times Medical solution daily as Branch needed for Wheezing or Shortness of Breath. cyclobenzap 2020-09 Yes [id number] TAKE 1 [facility] rine 5 mg 1-09 TABLET BY ity o f tablet 00:00: MOUTH [place] 00 EVERY 8 Medical HOURS Branch NEEDED albuterol 2020-09 Yes [id number] 2{puff} Inhale 2 [facility] (PROAIR 1-09 Puffs ity of HFA) 90 00:00: every 6 [place] mcg/actuati 00 (six) Medical on inhaler hours as Branc h needed for Wheezing or Shortness of Breath. cyanocobala 2020-09 Yes [id number] 1000ug 1 mL by [facility] min 1,000 1-09 Intramuscu ity of mcg/mL 00:00: lar route [place] injection 00 every 2 Medical (two) Branch weeks. levalbutero 2020-09 Yes [id number] .63mg Inhale [facility] l 0.63 mg/3 1-09 0.63 mg 3 ity of mL 00:00: (three) [place] nebulizer 00 times Medical solution daily as Branch needed for Wheezing or Shortness of Breath. cyclobenzap 2020-09 Yes [id number] TAKE 1 [facility] rine 5 mg 1-09 TABLET BY ity o f tablet 00:00: MOUTH [place] 00 EVERY 8 Medical HOURS Branch NEEDED albuterol 2020-09 Yes [id number] 2{puff} Inhale 2 [facility] (PROAIR 1-09 Puffs ity of HFA) 90 00:00: every 6 [place] mcg/actuati 00 (six) Medical on inhaler hours as Branc h needed for Wheezing or Shortness of Breath. cyanocobala 2020-09 Yes [id number] 1000ug 1 mL by [facility] min 1,000 1-09 Intramuscu ity of mcg/mL 00:00: lar route [place] injection 00 every 2 Medical (two) Branch weeks. levalbutero 2020-09 Yes [id number] .63mg Inhale [facility] l 0.63 mg/3 1-09 0.63 mg 3 ity of mL 00:00: (three) [place] nebulizer 00 times Medical solution daily as Branch needed for Wheezing or Shortness of Breath. cyclobenzap 2020-09 Yes [id number] TAKE 1 [facility] rine 5 mg 1-09 TABLET BY ity o f tablet 00:00: MOUTH [place] 00 EVERY 8 Medical HOURS Branch NEEDED albuterol 2020-09 Yes [id number] 2{puff} Inhale 2 [facility] (PROAIR 1-09 Puffs ity of HFA) 90 00:00: every 6 [place] mcg/actuati 00 (six) Medical on inhaler hours as Branc h needed for Wheezing or Shortness of Breath. cyanocobala 2020-09 Yes [id number] 1000ug 1 mL by [facility] min 1,000 1-09 Intramuscu ity of mcg/mL 00:00: lar route [place] injection 00 every 2 Medical (two) Branch weeks. levalbutero 2020-09 Yes [id number] .63mg Inhale [facility] l 0.63 mg/3 1-09 0.63 mg 3 ity of mL 00:00: (three) [place] nebulizer 00 times Medical solution daily as Branch needed for Wheezing or Shortness of Breath. cyclobenzap 2020-09 Yes [id number] TAKE 1 [facility] rine 5 mg 1-09 TABLET BY ity o f tablet 00:00: MOUTH [place] 00 EVERY 8 Medical HOURS Branch NEEDED albuterol 2020-09 Yes [id number] 2{puff} Inhale 2 [facility] (PROAIR 1-09 Puffs ity of HFA) 90 00:00: every 6 [place] mcg/actuati 00 (six) Medical on inhaler hours as Branc h needed for Wheezing or Shortness of Breath. cyanocobala 2020-09 Yes [id number] 1000ug 1 mL by [facility] min 1,000 1-09 Intramuscu ity of mcg/mL 00:00: lar route [place] injection 00 every 2 Medical (two) Branch weeks. levalbutero 2020-09 Yes [id number] .63mg Inhale [facility] l 0.63 mg/3 1-09 0.63 mg 3 ity of mL 00:00: (three) [place] nebulizer 00 times Medical solution daily as Branch needed for Wheezing or Shortness of Breath. cyclobenzap 2020-09 Yes [id number] TAKE 1 [facility] rine 5 mg 1-09 TABLET BY ity o f tablet 00:00: MOUTH [place] 00 EVERY 8 Medical HOURS Branch NEEDED albuterol 2020-09 Yes [id number] 2{puff} Inhale 2 [facility] (PROAIR 1-09 Puffs ity of HFA) 90 00:00: every 6 [place] mcg/actuati 00 (six) Medical on inhaler hours as Branc h needed for Wheezing or Shortness of Breath. rosuvastati 2020-09 Yes [id number] 10mg Take 1 [facility] n 10 mg 1-09 tablet by ity of tablet 00:00: mouth at [place] 00 bedtime. Medical Branch cyanocobala 2020-09 Yes [id number] 1000ug 1 mL by [facility] min 1,000 1-09 Intramuscu ity of mcg/mL 00:00: lar route [place] injection 00 every 2 Medical (two) Branch weeks. levothyroxi 2020-09 Yes [id number] 50ug Take 1 [facility] ne 50 mcg 1-09 tablet by ity o f tablet 00:00: mouth [place] 00 every Medical morning. Branch fluticasone 2020-09 Yes [id number] 2{puff} Inhale 2 [facility] propionate 1-09 Puffs ity of (FLOVENT 00:00: every 12 [place] HFA) 110 00 (twelve) Medical mcg/actuati hours. Branch on inhaler Rinse mouth after each use. levalbutero 2020-09 Yes [id number] .63mg Inhale [facility] l 0.63 mg/3 1-09 0.63 mg 3 ity of mL 00:00: (three) [place] nebulizer 00 times Medical solution daily as Branch needed for Wheezing or Shortness of Breath. losartan 50 2020-09 Yes [id number] 50mg Take 1 [facility] mg tablet -09 tablet by ity o f 00:00: mouth 2 [place] 00 (two) Medical times Branch daily. clotrimazol 2020-09 Yes [id number] Apply to [facility] e-betametha -09 area(s) 2 ity of sone cream 00:00: (two) [place] 00 times Medical daily. Branch cyclobenzap 2020-09 Yes [id number] TAKE 1 [facility] rine 5 mg -09 TABLET BY ity o f tablet 00:00: MOUTH [place] 00 EVERY 8 Medical HOURS Branch NEEDED econazole 2020-09 Yes [id number] Apply to [facility] nitrate 1 % 09 area(s) 2 ity of cream 00:00: (two) [place] 00 times Medical daily. Branch albuterol 2020-09 Yes [id number] 2{puff} Inhale 2 [facility] (PROAIR 1-09 Puffs ity of HFA) 90 00:00: every 6 [place] mcg/actuati 00 (six) Medical on inhaler hours as Branc h needed for Wheezing or Shortness of Breath. triamcinolo 2020-09 Yes [id number] Apply to [facility] ne 0.025 % -09 area(s) 3 ity of ointment 00:00: (three) [place] 00 times Medical daily. For Branch itching diltiazem 2020-09 Yes [id number] 120mg Take 1 [facility] (CARTIA XT) -09 capsule by it y of 120 mg 24 00:00: mouth 2 [place] hr capsule 00 (two) Medical times Branch daily. rosuvastati 2020-09 Yes [id number] 10mg Take 1 [facility] n 10 mg 1-09 tablet by ity of tablet 00:00: mouth at [place] 00 bedtime. Medical Branch cyanocobala 2020-09 Yes [id number] 1000ug 1 mL by [facility] min 1,000 1-09 Intramuscu ity of mcg/mL 00:00: lar route [place] injection 00 every 2 Medical (two) Branch weeks. levothyroxi 2020-09 Yes [id number] 50ug Take 1 [facility] ne 50 mcg 1-09 tablet by ity o f tablet 00:00: mouth [place] 00 every Medical morning. Branch fluticasone 2020-09 Yes [id number] 2{puff} Inhale 2 [facility] propionate 1-09 Puffs ity of (FLOVENT 00:00: every 12 [place] HFA) 110 00 (twelve) Medical mcg/actuati hours. Branch on inhaler Rinse mouth after each use. levalbutero 2020-09 Yes [id number] .63mg Inhale [facility] l 0.63 mg/3 1-09 0.63 mg 3 ity of mL 00:00: (three) [place] nebulizer 00 times Medical solution daily as Branch needed for Wheezing or Shortness of Breath. losartan 50 2020-09 Yes [id number] 50mg Take 1 [facility] mg tablet 1-09 tablet by ity o f 00:00: mouth 2 [place] 00 (two) Medical times Branch daily. clotrimazol 2020-09 Yes [id number] Apply to [facility] e-betametha -09 area(s) 2 ity of sone cream 00:00: (two) [place] 00 times Medical daily. Branch cyclobenzap 2020-09 Yes [id number] TAKE 1 [facility] rine 5 mg 1-09 TABLET BY ity o f tablet 00:00: MOUTH [place] 00 EVERY 8 Medical HOURS Branch NEEDED econazole 2020-09 Yes [id number] Apply to [facility] nitrate 1 % 09 area(s) 2 ity of cream 00:00: (two) [place] 00 times Medical daily. Branch albuterol 2020-09 Yes [id number] 2{puff} Inhale 2 [facility] (PROAIR 1-09 Puffs ity of HFA) 90 00:00: every 6 [place] mcg/actuati 00 (six) Medical on inhaler hours as Branc h needed for Wheezing or Shortness of Breath. triamcinolo 2020-09 Yes [id number] Apply to [facility] ne 0.025 % 10-04 area(s) 3 ity of ointment 00:00: (three) [place] 00 times Medical daily. For Branch itching diltiazem 2020-09 Yes [id number] 120mg Take 1 [facility] (CARTIA XT) 10-04 capsule by it y of 120 mg 24 00:00: mouth 2 [place] hr capsule 00 (two) Medical times Branch daily. cyanocobala 2020-09 Yes [id number] 1000ug 1 mL by [facility] min 1,000 09 Intramuscu ity of mcg/mL 00:00: lar route [place] injection 00 every 2 Medical (two) Branch weeks. levothyroxi 2020-09 Yes [id number] 50ug Take 1 [facility] ne 50 mcg 10-04 tablet by ity o f tablet 00:00: mouth [place] 00 every Medical morning. Branch fluticasone 2020-09 Yes [id number] 2{puff} Inhale 2 [facility] propionate 09 Puffs ity of (FLOVENT 00:00: every 12 [place] HFA) 110 00 (twelve) Medical mcg/actuati hours. Branch on inhaler Rinse mouth after each use. levalbutero 2020-09 Yes [id number] .63mg Inhale [facility] l 0.63 mg/3 -09 0.63 mg 3 ity of mL 00:00: (three) [place] nebulizer 00 times Medical solution daily as Branch needed for Wheezing or Shortness of Breath. losartan 50 2020-09 Yes [id number] 50mg Take 1 [facility] mg tablet 09 tablet by ity o f 00:00: mouth 2 [place] 00 (two) Medical times Branch daily. clotrimazol 2020-09 Yes [id number] Apply to [facility] e-betametha 10-04 area(s) 2 ity of sone cream 00:00: (two) [place] 00 times Medical daily. Branch cyclobenzap 2020-09 Yes [id number] TAKE 1 [facility] rine 5 mg -09 TABLET BY ity o f tablet 00:00: MOUTH [place] 00 EVERY 8 Medical HOURS Branch NEEDED econazole 2020-09 Yes [id number] Apply to [facility] nitrate 1 % 10-04 area(s) 2 ity of cream 00:00: (two) [place] 00 times Medical daily. Branch albuterol 2020-09 Yes [id number] 2{puff} Inhale 2 [facility] (PROAIR 1-09 Puffs ity of HFA) 90 00:00: every 6 [place] mcg/actuati 00 (six) Medical on inhaler hours as Branc h needed for Wheezing or Shortness of Breath. triamcinolo 2020-09 Yes [id number] Apply to [facility] ne 0.025 % -09 area(s) 3 ity of ointment 00:00: (three) [place] 00 times Medical daily. For Branch itching diltiazem 2020-09 Yes [id number] 120mg Take 1 [facility] (CARTIA XT) 09 capsule by it y of 120 mg 24 00:00: mouth 2 [place] hr capsule 00 (two) Medical times Branch daily. cyanocobala 2020-09 Yes [id number] 1000ug 1 mL by [facility] min 1,000 -09 Intramuscu ity of mcg/mL 00:00: lar route [place] injection 00 every 2 Medical (two) Branch weeks. levothyroxi 2020-09 Yes [id number] 50ug Take 1 [facility] ne 50 mcg -09 tablet by ity o f tablet 00:00: mouth [place] 00 every Medical morning. Branch fluticasone 2020-09 Yes [id number] 2{puff} Inhale 2 [facility] propionate 1-09 Puffs ity of (FLOVENT 00:00: every 12 [place] HFA) 110 00 (twelve) Medical mcg/actuati hours. Branch on inhaler Rinse mouth after each use. levalbutero 2020-09 Yes [id number] .63mg Inhale [facility] l 0.63 mg/3 1-09 0.63 mg 3 ity of mL 00:00: (three) [place] nebulizer 00 times Medical solution daily as Branch needed for Wheezing or Shortness of Breath. losartan 50 2020-09 Yes [id number] 50mg Take 1 [facility] mg tablet -09 tablet by ity o f 00:00: mouth 2 [place] 00 (two) Medical times Branch daily. clotrimazol 2020-09 Yes [id number] Apply to [facility] e-betametha -09 area(s) 2 ity of sone cream 00:00: (two) [place] 00 times Medical daily. Branch cyclobenzap 2020-09 Yes [id number] TAKE 1 [facility] rine 5 mg 1-09 TABLET BY ity o f tablet 00:00: MOUTH [place] 00 EVERY 8 Medical HOURS Branch NEEDED econazole 2020-09 Yes [id number] Apply to [facility] nitrate 1 % 1-09 area(s) 2 ity of cream 00:00: (two) [place] 00 times Medical daily. Branch albuterol 2020-09 Yes [id number] 2{puff} Inhale 2 [facility] (PROAIR 1-09 Puffs ity of HFA) 90 00:00: every 6 [place] mcg/actuati 00 (six) Medical on inhaler hours as Branc h needed for Wheezing or Shortness of Breath. triamcinolo 2020-09 Yes [id number] Apply to [facility] ne 0.025 % 1-09 area(s) 3 ity of ointment 00:00: (three) [place] 00 times Medical daily. For Branch itching diltiazem 2020-09 Yes [id number] 120mg Take 1 [facility] (CARTIA XT) 1-09 capsule by it y of 120 mg 24 00:00: mouth 2 [place] hr capsule 00 (two) Medical times Branch daily. cyanocobala 2020-09 Yes [id number] 1000ug 1 mL by [facility] min 1,000 1-09 Intramuscu ity of mcg/mL 00:00: lar route [place] injection 00 every 2 Medical (two) Branch weeks. levothyroxi 2020-09 Yes [id number] 50ug Take 1 [facility] ne 50 mcg 1-09 tablet by ity o f tablet 00:00: mouth [place] 00 every Medical morning. Branch fluticasone 2020-09 Yes [id number] 2{puff} Inhale 2 [facility] propionate 1-09 Puffs ity of (FLOVENT 00:00: every 12 [place] HFA) 110 00 (twelve) Medical mcg/actuati hours. Branch on inhaler Rinse mouth after each use. levalbutero 2020-09 Yes [id number] .63mg Inhale [facility] l 0.63 mg/3 1-09 0.63 mg 3 ity of mL 00:00: (three) [place] nebulizer 00 times Medical solution daily as Branch needed for Wheezing or Shortness of Breath. losartan 50 2020-09 Yes [id number] 50mg Take 1 [facility] mg tablet 1-09 tablet by ity o f 00:00: mouth 2 [place] 00 (two) Medical times Branch daily. clotrimazol 2020-09 Yes [id number] Apply to [facility] e-betametha 09 area(s) 2 ity of sone cream 00:00: (two) [place] 00 times Medical daily. Branch cyclobenzap 2020-09 Yes [id number] TAKE 1 [facility] rine 5 mg -09 TABLET BY ity o f tablet 00:00: MOUTH [place] 00 EVERY 8 Medical HOURS Branch NEEDED econazole 2020-09 Yes [id number] Apply to [facility] nitrate 1 % 09 area(s) 2 ity of cream 00:00: (two) [place] 00 times Medical daily. Branch albuterol 2020-09 Yes [id number] 2{puff} Inhale 2 [facility] (PROAIR 1-09 Puffs ity of HFA) 90 00:00: every 6 [place] mcg/actuati 00 (six) Medical on inhaler hours as Branc h needed for Wheezing or Shortness of Breath. triamcinolo 2020-09 Yes [id number] Apply to [facility] ne 0.025 % 10-04 area(s) 3 ity of ointment 00:00: (three) [place] 00 times Medical daily. For Branch itching diltiazem 2020-09 Yes [id number] 120mg Take 1 [facility] (CARTIA XT) 10-04 capsule by it y of 120 mg 24 00:00: mouth 2 [place] hr capsule 00 (two) Medical times Branch daily. cyanocobala 2020-09 Yes [id number] 1000ug 1 mL by [facility] min 1,000 -09 Intramuscu ity of mcg/mL 00:00: lar route [place] injection 00 every 2 Medical (two) Branch weeks. levothyroxi 2020-09 Yes [id number] 50ug Take 1 [facility] ne 50 mcg -09 tablet by ity o f tablet 00:00: mouth [place] 00 every Medical morning. Branch fluticasone 2020-09 Yes [id number] 2{puff} Inhale 2 [facility] propionate 1-09 Puffs ity of (FLOVENT 00:00: every 12 [place] HFA) 110 00 (twelve) Medical mcg/actuati hours. Branch on inhaler Rinse mouth after each use. levalbutero 2020-09 Yes [id number] .63mg Inhale [facility] l 0.63 mg/3 1-09 0.63 mg 3 ity of mL 00:00: (three) [place] nebulizer 00 times Medical solution daily as Branch needed for Wheezing or Shortness of Breath. losartan 50 2020-09 Yes [id number] 50mg Take 1 [facility] mg tablet -09 tablet by ity o f 00:00: mouth 2 [place] 00 (two) Medical times Branch daily. clotrimazol 2020-09 Yes [id number] Apply to [facility] e-betametha 10-04 area(s) 2 ity of sone cream 00:00: (two) [place] 00 times Medical daily. Branch cyclobenzap 2020-09 Yes [id number] TAKE 1 [facility] rine 5 mg 10-04 TABLET BY ity o f tablet 00:00: MOUTH [place] 00 EVERY 8 Medical HOURS Branch NEEDED econazole 2020-09 Yes [id number] Apply to [facility] nitrate 1 % 10-04 area(s) 2 ity of cream 00:00: (two) [place] 00 times Medical daily. Branch albuterol 2020-09 Yes [id number] 2{puff} Inhale 2 [facility] (PROAIR -09 Puffs ity of HFA) 90 00:00: every 6 [place] mcg/actuati 00 (six) Medical on inhaler hours as Branc h needed for Wheezing or Shortness of Breath. triamcinolo 2020-09 Yes [id number] Apply to [facility] ne 0.025 % 10-04 area(s) 3 ity of ointment 00:00: (three) [place] 00 times Medical daily. For Branch itching diltiazem 2020-09 Yes [id number] 120mg Take 1 [facility] n[facility] (CARTIA XT) 10-04 capsule by it y of 120 mg 24 00:00: mouth 2 [place] hr capsule 00 (two) Medical times Branch daily. cyanocobala 2020-09 Yes [id number] 1000ug 1 mL by [facility] min 1,000 -09 Intramuscu ity of mcg/mL 00:00: lar route [place] injection 00 every 2 Medical (two) Branch weeks. levothyroxi 2020-09 Yes [id number] 50ug Take 1 [facility] ne 50 mcg -09 tablet by ity o f tablet 00:00: mouth [place] 00 every Medical morning. Branch fluticasone 2020-09 Yes [id number] 2{puff} Inhale 2 [facility] propionate 1-09 Puffs ity of (FLOVENT 00:00: every 12 [place] HFA) 110 00 (twelve) Medical mcg/actuati hours. Branch on inhaler Rinse mouth after each use. levalbutero 2020-09 Yes [id number] .63mg Inhale [facility] l 0.63 mg/3 1-09 0.63 mg 3 ity of mL 00:00: (three) [place] nebulizer 00 times Medical solution daily as Branch needed for Wheezing or Shortness of Breath. losartan 50 2020-09 Yes [id number] 50mg Take 1 [facility] mg tablet -09 tablet by ity o f 00:00: mouth 2 [place] 00 (two) Medical times Branch daily. clotrimazol 2020-09 Yes [id number] Apply to [facility] e-betametha -09 area(s) 2 ity of sone cream 00:00: (two) [place] 00 times Medical daily. Branch cyclobenzap 2020-09 Yes [id number] TAKE 1 [facility] rine 5 mg -09 TABLET BY ity o f tablet 00:00: MOUTH [place] 00 EVERY 8 Medical HOURS Branch NEEDED econazole 2020-09 Yes [id number] Apply to [facility] nitrate 1 % 09 area(s) 2 ity of cream 00:00: (two) [place] 00 times Medical daily. Branch albuterol 2020-09 Yes [id number] 2{puff} Inhale 2 [facility] (PROAIR 1-09 Puffs ity of HFA) 90 00:00: every 6 [place] mcg/actuati 00 (six) Medical on inhaler hours as Branc h needed for Wheezing or Shortness of Breath. triamcinolo 2020-09 Yes [id number] Apply to [facility] ne 0.025 % 09 area(s) 3 ity of ointment 00:00: (three) [place] 00 times Medical daily. For Branch itching diltiazem 2020-09 Yes [id number] 120mg Take 1 [facility] n[facility] (CARTIA XT) -09 capsule by it y of 120 mg 24 00:00: mouth 2 [place] hr capsule 00 (two) Medical times Branch daily. cyanocobala 2020-09 Yes [id number] 1000ug 1 mL by [facility] min 1,000 -09 Intramuscu ity of mcg/mL 00:00: lar route [place] injection 00 every 2 Medical (two) Branch weeks. levothyroxi 2020-09 Yes [id number] 50ug Take 1 [facility] ne 50 mcg 1-09 tablet by ity o f tablet 00:00: mouth [place] 00 every Medical morning. Branch fluticasone 2020-09 Yes [id number] 2{puff} Inhale 2 [facility] propionate 1-09 Puffs ity of (FLOVENT 00:00: every 12 [place] HFA) 110 00 (twelve) Medical mcg/actuati hours. Branch on inhaler Rinse mouth after each use. levalbutero 2020-09 Yes [id number] .63mg Inhale [facility] l 0.63 mg/3 1-09 0.63 mg 3 ity of mL 00:00: (three) [place] nebulizer 00 times Medical solution daily as Branch needed for Wheezing or Shortness of Breath. losartan 50 2020-09 Yes [id number] 50mg Take 1 [facility] mg tablet 1-09 tablet by ity o f 00:00: mouth 2 [place] 00 (two) Medical times Branch daily. clotrimazol 2020-09 Yes [id number] Apply to [facility] e-betametha 1-09 area(s) 2 ity of sone cream 00:00: (two) [place] 00 times Medical daily. Branch cyclobenzap 2020-09 Yes [id number] TAKE 1 [facility] rine 5 mg 1-09 TABLET BY ity o f tablet 00:00: MOUTH [place] 00 EVERY 8 Medical HOURS Branch NEEDED econazole 2020-09 Yes [id number] Apply to [facility] nitrate 1 % -09 area(s) 2 ity of cream 00:00: (two) [place] 00 times Medical daily. Branch albuterol 2020-09 Yes [id number] 2{puff} Inhale 2 [facility] (PROAIR 1-09 Puffs ity of HFA) 90 00:00: every 6 [place] mcg/actuati 00 (six) Medical on inhaler hours as Branc h needed for Wheezing or Shortness of Breath. triamcinolo 2020-09 Yes [id number] Apply to [facility] ne 0.025 % 1-09 area(s) 3 ity of ointment 00:00: (three) [place] 00 times Medical daily. For Branch itching diltiazem 2020-09 Yes [id number] 120mg Take 1 [facility] n[facility] (CARTIA XT) 1-09 capsule by it y of 120 mg 24 00:00: mouth 2 [place] hr capsule 00 (two) Medical times Branch daily. cyanocobala 2020-09 Yes [id number] 1000ug 1 mL by [facility] min 1,000 1-09 Intramuscu ity of mcg/mL 00:00: lar route [place] injection 00 every 2 Medical (two) Branch weeks. levothyroxi 2020-09 Yes [id number] 50ug Take 1 [facility] ne 50 mcg -09 tablet by ity o f tablet 00:00: mouth [place] 00 every Medical morning. Branch fluticasone 2020-09 Yes [id number] 2{puff} Inhale 2 [facility] propionate 1-09 Puffs ity of (FLOVENT 00:00: every 12 [place] HFA) 110 00 (twelve) Medical mcg/actuati hours. Branch on inhaler Rinse mouth after each use. levalbutero 2020-09 Yes [id number] .63mg Inhale [facility] l 0.63 mg/3 -09 0.63 mg 3 ity of mL 00:00: (three) [place] nebulizer 00 times Medical solution daily as Branch needed for Wheezing or Shortness of Breath. losartan 50 2020-09 Yes [id number] 50mg Take 1 [facility] mg tablet -09 tablet by ity o f 00:00: mouth 2 [place] 00 (two) Medical times Branch daily. clotrimazol 2020-09 Yes [id number] Apply to [facility] e-betametha 10-04 area(s) 2 ity of sone cream 00:00: (two) [place] 00 times Medical daily. Branch cyclobenzap 2020-09 Yes [id number] TAKE 1 [facility] rine 5 mg -09 TABLET BY ity o f tablet 00:00: MOUTH [place] 00 EVERY 8 Medical HOURS Branch NEEDED econazole 2020-09 Yes [id number] Apply to [facility] nitrate 1 % 09 area(s) 2 ity of cream 00:00: (two) [place] 00 times Medical daily. Branch albuterol 2020-09 Yes [id number] 2{puff} Inhale 2 [facility] (PROAIR 1-09 Puffs ity of HFA) 90 00:00: every 6 [place] mcg/actuati 00 (six) Medical on inhaler hours as Branc h needed for Wheezing or Shortness of Breath. triamcinolo 2020-09 Yes [id number] Apply to [facility] ne 0.025 % -09 area(s) 3 ity of ointment 00:00: (three) [place] 00 times Medical daily. For Branch itching diltiazem 2020-09 Yes [id number] 120mg Take 1 [facility] n[facility] (CARTIA XT) 1-09 capsule by it y of 120 mg 24 00:00: mouth 2 [place] hr capsule 00 (two) Medical times Branch daily. cyanocobala 2020-09 Yes [id number] 1000ug 1 mL by [facility] min 1,000 -09 Intramuscu ity of mcg/mL 00:00: lar route [place] injection 00 every 2 Medical (two) Branch weeks. levothyroxi 2020-09 Yes [id number] 50ug Take 1 [facility] ne 50 mcg -09 tablet by ity o f tablet 00:00: mouth [place] 00 every Medical morning. Branch fluticasone 2020-09 Yes [id number] 2{puff} Inhale 2 [facility] propionate 1-09 Puffs ity of (FLOVENT 00:00: every 12 [place] HFA) 110 00 (twelve) Medical mcg/actuati hours. Branch on inhaler Rinse mouth after each use. levalbutero 2020-09 Yes [id number] .63mg Inhale [facility] l 0.63 mg/3 1-09 0.63 mg 3 ity of mL 00:00: (three) [place] nebulizer 00 times Medical solution daily as Branch needed for Wheezing or Shortness of Breath. losartan 50 2020-09 Yes [id number] 50mg Take 1 [facility] mg tablet -09 tablet by ity o f 00:00: mouth 2 [place] 00 (two) Medical times Branch daily. clotrimazol 2020-09 Yes [id number] Apply to [facility] e-betametha -09 area(s) 2 ity of sone cream 00:00: (two) [place] 00 times Medical daily. Branch cyclobenzap 2020-09 Yes [id number] TAKE 1 [facility] rine 5 mg 1-09 TABLET BY ity o f tablet 00:00: MOUTH [place] 00 EVERY 8 Medical HOURS Branch NEEDED econazole 2020-09 Yes [id number] Apply to [facility] nitrate 1 % -09 area(s) 2 ity of cream 00:00: (two) [place] 00 times Medical daily. Branch albuterol 2020-09 Yes [id number] 2{puff} Inhale 2 [facility] (PROAIR 1-09 Puffs ity of HFA) 90 00:00: every 6 [place] mcg/actuati 00 (six) Medical on inhaler hours as Branc h needed for Wheezing or Shortness of Breath. triamcinolo 2020-09 Yes [id number] Apply to [facility] ne 0.025 % -09 area(s) 3 ity of ointment 00:00: (three) [place] 00 times Medical daily. For Branch itching diltiazem 2020-09 Yes [id number] 120mg Take 1 [facility] n[facility] (CARTIA XT) -09 capsule by it y of 120 mg 24 00:00: mouth 2 [place] hr capsule 00 (two) Medical times Branch daily. cyanocobala 2020-09 Yes [id number] 1000ug 1 mL by [facility] min 1,000 1-09 Intramuscu ity of mcg/mL 00:00: lar route [place] injection 00 every 2 Medical (two) Branch weeks. levothyroxi 2020-09 Yes [id number] 50ug Take 1 [facility] ne 50 mcg -09 tablet by ity o f tablet 00:00: mouth [place] 00 every Medical morning. Branch fluticasone 2020-09 Yes [id number] 2{puff} Inhale 2 [facility] propionate 1-09 Puffs ity of (FLOVENT 00:00: every 12 [place] HFA) 110 00 (twelve) Medical mcg/actuati hours. Branch on inhaler Rinse mouth after each use. levalbutero 2020-09 Yes [id number] .63mg Inhale [facility] l 0.63 mg/3 1-09 0.63 mg 3 ity of mL 00:00: (three) [place] nebulizer 00 times Medical solution daily as Branch needed for Wheezing or Shortness of Breath. losartan 50 2020-09 Yes [id number] 50mg Take 1 [facility] mg tablet 1-09 tablet by ity o f 00:00: mouth 2 [place] 00 (two) Medical times Branch daily. clotrimazol 2020-09 Yes [id number] Apply to [facility] e-betametha -09 area(s) 2 ity of sone cream 00:00: (two) [place] 00 times Medical daily. Branch cyclobenzap 2020-09 Yes [id number] TAKE 1 [facility] rine 5 mg 10-04 TABLET BY ity o f tablet 00:00: MOUTH [place] 00 EVERY 8 Medical HOURS Branch NEEDED econazole 2020-09 Yes [id number] Apply to [facility] nitrate 1 % 10-04 area(s) 2 ity of cream 00:00: (two) [place] 00 times Medical daily. Branch albuterol 2020-09 Yes [id number] 2{puff} Inhale 2 [facility] (PROAIR 10-04 Puffs ity of HFA) 90 00:00: every 6 [place] mcg/actuati 00 (six) Medical on inhaler hours as Branc h needed for Wheezing or Shortness of Breath. triamcinolo 2020-09 Yes [id number] Apply to [facility] ne 0.025 % 10-04 area(s) 3 ity of ointment 00:00: (three) [place] 00 times Medical daily. For Branch itching diltiazem 2020-09 Yes [id number] 120mg Take 1 [facility] n[facility] (CARTIA XT) 10-04 capsule by it y of 120 mg 24 00:00: mouth 2 [place] hr capsule 00 (two) Medical times Branch daily. fluticasone 2020-09- No [id number] 2{puff} Inhale 2 [facility] propionate 10-04 Puffs ity of (FLOVENT 00:00: 00:00 every 12 [place] HFA) 110 00 :00 (twelve) Medical mcg/actuati hours. Branch on inhaler Rinse mouth after each use. clotrimazol 2020-09- No [id number] Apply to [facility] e-betametha 10-04 area(s) 2 it y of sone cream 00:00: 00:00 (two) [place] 00 :00 times Medical daily. Branch econazole 2020-09- No [id number] Apply to [facility] nitrate 1 % 10-04 area(s) 2 it y of cream 00:00: 00:00 (two) [place] 00 :00 times Medical daily. Branch triamcinolo 2020-09- No [id number] Apply to [facility] ne 0.025 % 10-04 area(s) 3 ity of ointment 00:00: 00:00 (three) [place] 00 :00 times Medical daily. For Branch itching fluticasone 2020-09- No [id number] 2{puff} Inhale 2 [facility] propionate 10-04 Puffs ity of (FLOVENT 00:00: 00:00 every 12 [place] HFA) 110 00 :00 (twelve) Medical mcg/actuati hours. Branch on inhaler Rinse mouth after each use. clotrimazol 2020-09- No [id number] Apply to [facility] e-betametha 10-04 area(s) 2 it y of sone cream 00:00: 00:00 (two) [place] 00 :00 times Medical daily. Branch econazole 2020-09- No [id number] Apply to [facility] nitrate 1 % 10-04 area(s) 2 it y of cream 00:00: 00:00 (two) [place] 00 :00 times Medical daily. Branch triamcinolo 2020-09- No [id number] Apply to [facility] ne 0.025 % 10-04 area(s) 3 ity of ointment 00:00: 00:00 (three) [place] 00 :00 times Medical daily. For Branch itching levothyroxi 2020-09- No [id number] 50ug Take 1 [facility] ne 50 mcg 10-04 tablet by ity of tablet 00:00: 00:00 mouth [place] 00 :00 every Medical morning. Branch losartan 50 2020-09- No [id number] 50mg Take 1 [facility] mg tablet 10-04 tablet by ity of 00:00: 00:00 mouth 2 [place] 00 :00 (two) Medical times Branch daily. diltiazem 2020-09- No [id number] 120mg Take 1 [facility] (CARTIA XT) 10-04 capsule by i ty of 120 mg 24 00:00: 00:00 mouth 2 [place] hr capsule 00 :00 (two) Medical times Branch daily. rosuvastati 2020-09- No [id number] 10mg Take 1 [facility] n 10 mg 10-04 tablet by ity of tablet 00:00: 00:00 mouth at [place] 00 :00 bedtime. Medical Branch rosuvastati 2020- 2022- No [id number] 10mg Take 1 [facility] n 10 mg [...] [place] 00 Medical Branch FERROUS 2018-0 Yes [id number] TAKE ONE [facility] vers SULFATE 325 8-13 TABLET BY ity of mg (65 mg 00:00: MOUTH [place] iron) 00 THREE Medical tablet TIMES Branch DAILY WITH MEALS FERROUS 0 Yes [id number] TAKE ONE [facility] vers SULFATE 325 8-13 TABLET BY ity of mg (65 mg 00:00: MOUTH [place] iron) 00 THREE Medical tablet TIMES Branch DAILY WITH MEALS FERROUS 20180 Yes [id number] TAKE ONE [facility] vers SULFATE 325 8-13 TABLET BY ity of mg (65 mg 00:00: MOUTH [place] iron) 00 THREE Medical tablet TIMES Branch DAILY WITH MEALS FERROUS 20180 Yes [id number] TAKE ONE [facility] vers SULFATE 325 8-13 TABLET BY ity of mg (65 mg 00:00: MOUTH [place] iron) 00 THREE Medical tablet TIMES Branch DAILY WITH MEALS FERROUS Yes [id number] TAKE ONE [facility] vers SULFATE 325 8-13 TABLET BY ity of mg (65 mg 00:00: MOUTH [place] iron) 00 THREE Medical tablet TIMES Branch DAILY WITH MEALS FERROUS Yes [id number] TAKE ONE [facility] vers SULFATE 325 8-13 TABLET BY ity of mg (65 mg 00:00: MOUTH [place] iron) 00 THREE Medical tablet TIMES Branch DAILY WITH MEALS FERROUS Yes [id number] TAKE ONE [facility] vers SULFATE 325 8-13 TABLET BY ity of mg (65 mg 00:00: MOUTH [place] iron) 00 THREE Medical tablet TIMES Branch DAILY WITH MEALS FERROUS Yes [id number] TAKE ONE [facility] vers SULFATE 325 8-13 TABLET BY ity of mg (65 mg 00:00: MOUTH [place] iron) 00 THREE Medical tablet TIMES Branch DAILY WITH MEALS FERROUS Yes [id number] TAKE ONE [facility] vers SULFATE 325 8-13 TABLET BY ity of mg (65 mg 00:00: MOUTH [place] iron) 00 THREE Medical tablet TIMES Branch DAILY WITH MEALS FERROUS Yes [id number] TAKE ONE [facility] vers SULFATE 325 8-13 TABLET BY ity of mg (65 mg 00:00: MOUTH [place] iron) 00 THREE Medical tablet TIMES Branch DAILY WITH MEALS FERROUS Yes [id number] TAKE ONE [facility] vers SULFATE 325 8-13 TABLET BY ity of mg (65 mg 00:00: MOUTH [place] iron) 00 THREE Medical tablet TIMES Branch DAILY WITH MEALS FERROUS Yes [id number] TAKE ONE [facility] vers SULFATE 325 8-13 TABLET BY ity of mg (65 mg 00:00: MOUTH [place] iron) 00 THREE Medical tablet TIMES Branch DAILY WITH MEALS FERROUS Yes [id number] TAKE ONE [facility] vers SULFATE 325 8-13 TABLET BY ity of mg (65 mg 00:00: MOUTH [place] iron) 00 THREE Medical tablet TIMES Branch DAILY WITH MEALS FERROUS Yes [id number] TAKE ONE [facility] vers SULFATE 325 8-13 TABLET BY ity of mg (65 mg 00:00: MOUTH [place] iron) 00 THREE Medical tablet TIMES Branch DAILY WITH MEALS FERROUS Yes [id number] TAKE ONE [facility] vers SULFATE 325 8-13 TABLET BY ity of mg (65 mg 00:00: MOUTH [place] iron) 00 THREE Medical tablet TIMES Branch DAILY WITH MEALS FERROUS Yes [id number] TAKE ONE [facility] vers SULFATE 325 8-13 TABLET BY ity of mg (65 mg 00:00: MOUTH [place] iron) 00 THREE Medical tablet TIMES Branch DAILY WITH MEALS FERROUS Yes [id number] TAKE ONE [facility] vers SULFATE 325 8-13 TABLET BY ity of mg (65 mg 00:00: MOUTH [place] iron) 00 THREE Medical tablet TIMES Branch DAILY WITH MEALS FERROUS Yes [id number] TAKE ONE [facility] vers SULFATE 325 8-13 TABLET BY ity of mg (65 mg 00:00: MOUTH [place] iron) 00 THREE Medical tablet TIMES Branch DAILY WITH MEALS FERROUS Yes [id number] TAKE ONE [facility] SULFATE 325 8-13 TABLET BY ity of mg (65 mg 00:00: MOUTH [place] iron) 00 THREE Medical tablet TIMES Branch DAILY WITH MEALS FERROUS Yes [id number] TAKE ONE [facility] vers SULFATE 325 8-13 TABLET BY ity of mg (65 mg 00:00: MOUTH [place] iron) 00 THREE Medical tablet TIMES Branch DAILY WITH MEALS FERROUS Yes [id number] TAKE ONE [facility] vers SULFATE 325 8-13 TABLET BY ity of mg (65 mg 00:00: MOUTH [place] iron) 00 THREE Medical tablet TIMES Branch DAILY WITH MEALS FERROUS Yes [id number] TAKE ONE [facility] vers SULFATE 325 8-13 TABLET BY ity of mg (65 mg 00:00: MOUTH [place] iron) 00 THREE Medical tablet TIMES Branch DAILY WITH MEALS FERROUS Yes [id number] TAKE ONE [facility] vers SULFATE 325 8-13 TABLET BY ity of mg (65 mg 00:00: MOUTH [place] iron) 00 THREE Medical tablet TIMES Branch DAILY WITH MEALS FERROUS Yes [id number] TAKE ONE [facility] vers SULFATE 325 8-13 TABLET BY ity of mg (65 mg 00:00: MOUTH [place] iron) 00 THREE Medical tablet TIMES Branch DAILY WITH MEALS FERROUS Yes [id number] TAKE ONE [facility] vers SULFATE 325 8-13 TABLET BY ity of mg (65 mg 00:00: MOUTH [place] iron) 00 THREE Medical tablet TIMES Branch DAILY WITH MEALS FERROUS Yes [id number] TAKE ONE [facility] vers SULFATE 325 8-13 TABLET BY ity of mg (65 mg 00:00: MOUTH [place] iron) 00 THREE Medical tablet TIMES Branch DAILY WITH MEALS FERROUS Yes [id number] TAKE ONE [facility] vers SULFATE 325 8-13 TABLET BY ity of mg (65 mg 00:00: MOUTH [place] iron) 00 THREE Medical tablet TIMES Branch DAILY WITH MEALS FERROUS Yes [id number] TAKE ONE [facility] vers SULFATE 325 8-13 TABLET BY ity of mg (65 mg 00:00: MOUTH [place] iron) 00 THREE Medical tablet TIMES Branch DAILY WITH MEALS FERROUS Yes [id number] TAKE ONE [facility] vers SULFATE 325 8-13 TABLET BY ity of mg (65 mg 00:00: MOUTH [place] iron) 00 THREE Medical tablet TIMES Branch DAILY WITH MEALS FERROUS Yes [id number] TAKE ONE [facility] vers SULFATE 325 8-13 TABLET BY ity of mg (65 mg 00:00: MOUTH [place] iron) 00 THREE Medical tablet TIMES Branch DAILY WITH MEALS FERROUS Yes [id number] TAKE ONE [facility] vers SULFATE 325 8-13 TABLET BY ity of mg (65 mg 00:00: MOUTH [place] iron) 00 THREE Medical tablet TIMES Branch DAILY WITH MEALS FERROUS Yes [id number] TAKE ONE [facility] vers SULFATE 325 8-13 TABLET BY ity of mg (65 mg 00:00: MOUTH [place] iron) 00 THREE Medical tablet TIMES Branch DAILY WITH MEALS FERROUS Yes [id number] TAKE ONE [facility] vers SULFATE 325 8-13 TABLET BY ity of mg (65 mg 00:00: MOUTH [place] iron) 00 THREE Medical tablet TIMES Branch DAILY WITH MEALS FERROUS Yes [id number] TAKE ONE [facility] vers SULFATE 325 8-13 TABLET BY ity of mg (65 mg 00:00: MOUTH [place] iron) 00 THREE Medical tablet TIMES Branch DAILY WITH MEALS FERROUS Yes [id number] TAKE ONE [facility] vers SULFATE 325 8-13 TABLET BY ity of mg (65 mg 00:00: MOUTH [place] iron) 00 THREE Medical tablet TIMES Branch DAILY WITH MEALS FERROUS Yes [id number] TAKE ONE [facility] vers SULFATE 325 8-13 TABLET BY ity of mg (65 mg 00:00: MOUTH [place] iron) 00 THREE Medical tablet TIMES Branch DAILY WITH MEALS FERROUS Yes [id number] TAKE ONE [facility] vers SULFATE 325 8-13 TABLET BY ity of mg (65 mg 00:00: MOUTH [place] iron) 00 THREE Medical tablet TIMES Branch DAILY WITH MEALS FERROUS Yes [id number] TAKE ONE [facility] vers SULFATE 325 8-13 TABLET BY ity of mg (65 mg 00:00: MOUTH [place] iron) 00 THREE Medical tablet TIMES Branch DAILY WITH MEALS FERROUS Yes [id number] TAKE ONE [facility] vers SULFATE 325 8-13 TABLET BY ity of mg (65 mg 00:00: MOUTH [place] iron) 00 THREE Medical tablet TIMES Branch DAILY WITH MEALS FERROUS Yes [id number] TAKE ONE [facility] vers SULFATE 325 8-13 TABLET BY ity of mg (65 mg 00:00: MOUTH [place] iron) 00 THREE Medical tablet TIMES Branch DAILY WITH MEALS FERROUS Yes [id number] TAKE ONE [facility] vers SULFATE 325 8-13 TABLET BY ity of mg (65 mg 00:00: MOUTH [place] iron) 00 THREE Medical tablet TIMES Branch DAILY WITH MEALS FERROUS Yes [id number] TAKE ONE [facility] vers SULFATE 325 8-13 TABLET BY ity of mg (65 mg 00:00: MOUTH [place] iron) 00 THREE Medical tablet TIMES Branch DAILY WITH MEALS FERROUS Yes [id number] TAKE ONE [facility] vers SULFATE 325 8-13 TABLET BY ity of mg (65 mg 00:00: MOUTH [place] iron) 00 THREE Medical tablet TIMES Branch DAILY WITH MEALS FERROUS Yes [id number] TAKE ONE [facility] vers SULFATE 325 8-13 TABLET BY ity of mg (65 mg 00:00: MOUTH [place] iron) 00 THREE Medical tablet TIMES Branch DAILY WITH MEALS FERROUS Yes [id number] TAKE ONE [facility] vers SULFATE 325 8-13 TABLET BY ity of mg (65 mg 00:00: MOUTH [place] iron) 00 THREE Medical tablet TIMES Branch DAILY WITH MEALS FERROUS Yes [id number] TAKE ONE [facility] vers SULFATE 325 8-13 TABLET BY ity of mg (65 mg 00:00: MOUTH [place] iron) 00 THREE Medical tablet TIMES Branch DAILY WITH MEALS FERROUS Yes [id number] TAKE ONE [facility] vers SULFATE 325 8-13 TABLET BY ity of mg (65 mg 00:00: MOUTH [place] iron) 00 THREE Medical tablet TIMES Branch DAILY WITH MEALS FERROUS Yes [id number] TAKE ONE [facility] vers SULFATE 325 8-13 TABLET BY ity of mg (65 mg 00:00: MOUTH [place] iron) 00 THREE Medical tablet TIMES Branch DAILY WITH MEALS FERROUS Yes [id number] TAKE ONE [facility] vers SULFATE 325 8-13 TABLET BY ity of mg (65 mg 00:00: MOUTH [place] iron) 00 THREE Medical tablet TIMES Branch DAILY WITH MEALS FERROUS Yes [id number] TAKE ONE [facility] vers SULFATE 325 8-13 TABLET BY ity of mg (65 mg 00:00: MOUTH [place] iron) 00 THREE Medical tablet TIMES Branch DAILY WITH MEALS FERROUS Yes [id number] TAKE ONE [facility] vers SULFATE 325 8-13 TABLET BY ity of mg (65 mg 00:00: MOUTH [place] iron) 00 THREE Medical tablet TIMES Branch DAILY WITH MEALS FERROUS Yes [id number] TAKE ONE [facility] vers SULFATE 325 8-13 TABLET BY ity of mg (65 mg 00:00: MOUTH [place] iron) 00 THREE Medical tablet TIMES Branch DAILY WITH MEALS FERROUS Yes [id number] TAKE ONE [facility] vers SULFATE 325 8-13 TABLET BY ity of mg (65 mg 00:00: MOUTH [place] iron) 00 THREE Medical tablet TIMES Branch DAILY WITH MEALS FERROUS Yes [id number] TAKE ONE [facility] vers SULFATE 325 8-13 TABLET BY ity of mg (65 mg 00:00: MOUTH [place] iron) 00 THREE Medical tablet TIMES Branch DAILY WITH MEALS FERROUS Yes [id number] TAKE ONE [facility] vers SULFATE 325 8-13 TABLET BY ity of mg (65 mg 00:00: MOUTH [place] iron) 00 THREE Medical tablet TIMES Branch DAILY WITH MEALS coQ10, Yes [id number] 1{capsu Take 1 U nivers ubiquinol, 1-16 le} capsule by ity of 100 mg Cap 00:00: mouth [place] 00 daily. [facility] Branch coQ10, Yes [id number] 1{capsu Take 1 U nivers ubiquinol, 1-16 le} capsule by ity of 100 mg Cap 00:00: mouth [place] 00 daily. [facility] Branch coQ10, Yes [id number] 1{capsu Take 1 U nivers ubiquinol, 1-16 le} capsule by ity of 100 mg Cap 00:00: mouth [place] 00 daily. [facility] Branch coQ10, Yes [id number] 1{capsu Take 1 U nivers ubiquinol, 1-16 le} capsule by ity of 100 mg Cap 00:00: mouth [place] 00 daily. [facility] [facility] coQ10, Yes [id number] 1{capsu Take 1 U nivers ubiquinol, 1-16 le} capsule by ity of 100 mg Cap 00:00: mouth [place] 00 daily. [facility] coQ10, Yes [id number] 1{capsu Take 1 U nivers ubiquinol, 1-16 le} capsule by ity of 100 mg Cap 00:00: mouth [place] 00 daily. [facility] coQ10, Yes [id number] 1{capsu Take 1 U nivers ubiquinol, 1-16 le} capsule by ity of 100 mg Cap 00:00: mouth [place] 00 daily. [facility] coQ10, Yes [id number] 1{capsu Take 1 U nivers ubiquinol, 1-16 le} capsule by ity of 100 mg Cap 00:00: mouth [place] 00 daily. [facility] coQ10, Yes [id number] 1{capsu Take 1 U nivers ubiquinol, 1-16 le} capsule by ity of 100 mg Cap 00:00: mouth [place] 00 daily. [facility] coQ10, Yes [id number] 1{capsu Take 1 U nivers ubiquinol, 1-16 le} capsule by ity of 100 mg Cap 00:00: mouth [place] 00 daily. [facility] coQ10, Yes [id number] 1{capsu Take 1 U nivers ubiquinol, 1-16 le} capsule by ity of 100 mg Cap 00:00: mouth [place] 00 daily. [facility] coQ10, Yes [id number] 1{capsu Take 1 U nivers ubiquinol, 1-16 le} capsule by ity of 100 mg Cap 00:00: mouth [place] 00 daily. [facility] coQ10, Yes [id number] 1{capsu Take 1 U nivers ubiquinol, 1-16 le} capsule by ity of 100 mg Cap 00:00: mouth [place] 00 daily. [facility] coQ10, Yes [id number] 1{capsu Take 1 U nivers ubiquinol, 1-16 le} capsule by ity of 100 mg Cap 00:00: mouth [place] 00 daily. [facility] coQ10, Yes [id number] 1{capsu Take 1 U nivers ubiquinol, 1-16 le} capsule by ity of 100 mg Cap 00:00: mouth [place] 00 daily. [facility] coQ10, Yes [id number] 1{capsu Take 1 U nivers ubiquinol, 1-16 le} capsule by ity of 100 mg Cap 00:00: mouth [place] 00 daily. [facility] coQ10, Yes [id number] 1{capsu Take 1 U nivers ubiquinol, 1-16 le} capsule by ity of 100 mg Cap 00:00: mouth [place] 00 daily. [facility] coQ10, Yes [id number] 1{capsu Take 1 U nivers ubiquinol, 1-16 le} capsule by ity of 100 mg Cap 00:00: mouth [place] 00 daily. [facility] coQ10, Yes [id number] 1{capsu Take 1 U nivers ubiquinol, 1-16 le} capsule by ity of 100 mg Cap 00:00: mouth [place] 00 daily. [facility] coQ10, Yes [id number] 1{capsu Take 1 U nivers ubiquinol, 1-16 le} capsule by ity of 100 mg Cap 00:00: mouth [place] 00 daily. [facility] coQ10, Yes [id number] 1{capsu Take 1 U nivers ubiquinol, 1-16 le} capsule by ity of 100 mg Cap 00:00: mouth [place] 00 daily. [facility] coQ10, Yes [id number] 1{capsu Take 1 U nivers ubiquinol, 1-16 le} capsule by ity of 100 mg Cap 00:00: mouth [place] 00 daily. [facility] coQ10, Yes [id number] 1{capsu Take 1 U nivers ubiquinol, 1-16 le} capsule by ity of 100 mg Cap 00:00: mouth [place] 00 daily. [facility] coQ10, Yes [id number] 1{capsu Take 1 U nivers ubiquinol, 1-16 le} capsule by ity of 100 mg Cap 00:00: mouth [place] 00 daily. [facility] coQ10, Yes [id number] 1{capsu Take 1 U nivers ubiquinol, 1-16 le} capsule by ity of 100 mg Cap 00:00: mouth [place] 00 daily. [facility] coQ10, Yes [id number] 1{capsu Take 1 U nivers ubiquinol, 1-16 le} capsule by ity of 100 mg Cap 00:00: mouth [place] 00 daily. [facility] coQ10, Yes [id number] 1{capsu Take 1 U nivers ubiquinol, 1-16 le} capsule by ity of 100 mg Cap 00:00: mouth [place] 00 daily. [facility] coQ10, Yes [id number] 1{capsu Take 1 U nivers ubiquinol, 1-16 le} capsule by ity of 100 mg Cap 00:00: mouth [place] 00 daily. [facility] coQ10, Yes [id number] 1{capsu Take 1 U nivers ubiquinol, 1-16 le} capsule by ity of 100 mg Cap 00:00: mouth [place] 00 daily. [facility] coQ10, Yes [id number] 1{capsu Take 1 U nivers ubiquinol, 1-16 le} capsule by ity of 100 mg Cap 00:00: mouth [place] 00 daily. [facility] coQ10, Yes [id number] 1{capsu Take 1 U nivers ubiquinol, 1-16 le} capsule by ity of 100 mg Cap 00:00: mouth [place] 00 daily. [facility] coQ10, Yes [id number] 1{capsu Take 1 U nivers ubiquinol, 1-16 le} capsule by ity of 100 mg Cap 00:00: mouth [place] 00 daily. [facility] coQ10, Yes [id number] 1{capsu Take 1 U nivers ubiquinol, 1-16 le} capsule by ity of 100 mg Cap 00:00: mouth [place] 00 daily. [facility] coQ10, Yes [id number] 1{capsu Take 1 U nivers ubiquinol, 1-16 le} capsule by ity of 100 mg Cap 00:00: mouth [place] 00 daily. [facility] coQ10, Yes [id number] 1{capsu Take 1 U nivers ubiquinol, 1-16 le} capsule by ity of 100 mg Cap 00:00: mouth [place] 00 daily. [facility] coQ10, Yes [id number] 1{capsu Take 1 U nivers ubiquinol, 1-16 le} capsule by ity of 100 mg Cap 00:00: mouth [place] 00 daily. [facility] coQ10, Yes [id number] 1{capsu Take 1 U nivers ubiquinol, 1-16 le} capsule by ity of 100 mg Cap 00:00: mouth [place] 00 daily. [facility] coQ10, Yes [id number] 1{capsu Take 1 U nivers ubiquinol, 1-16 le} capsule by ity of 100 mg Cap 00:00: mouth [place] 00 daily. [facility] coQ10, Yes [id number] 1{capsu Take 1 U nivers ubiquinol, 1-16 le} capsule by ity of 100 mg Cap 00:00: mouth [place] 00 daily. [facility] coQ10, Yes [id number] 1{capsu Take 1 U nivers ubiquinol, 1-16 le} capsule by ity of 100 mg Cap 00:00: mouth [place] 00 daily. [facility] coQ10, Yes [id number] 1{capsu Take 1 U nivers ubiquinol, 1-16 le} capsule by ity of 100 mg Cap 00:00: mouth [place] 00 daily. [facility] coQ10, Yes [id number] 1{capsu Take 1 U nivers ubiquinol, 1-16 le} capsule by ity of 100 mg Cap 00:00: mouth [place] 00 daily. [facility] coQ10, Yes [id number] 1{capsu Take 1 U nivers ubiquinol, 1-16 le} capsule by ity of 100 mg Cap 00:00: mouth [place] 00 daily. [facility] coQ10, Yes [id number] 1{capsu Take 1 U nivers ubiquinol, 1-16 le} capsule by ity of 100 mg Cap 00:00: mouth [place] 00 daily. [facility] coQ10, Yes [id number] 1{capsu Take 1 U nivers ubiquinol, 1-16 le} capsule by ity of 100 mg Cap 00:00: mouth [place] 00 daily. [facility] coQ10, Yes [id number] 1{capsu Take 1 U nivers ubiquinol, 1-16 le} capsule by ity of 100 mg Cap 00:00: mouth [place] 00 daily. [facility] coQ10, Yes [id number] 1{capsu Take 1 U nivers ubiquinol, 1-16 le} capsule by ity of 100 mg Cap 00:00: mouth [place] 00 daily. [facility] coQ10, Yes [id number] 1{capsu Take 1 U nivers ubiquinol, 1-16 le} capsule by ity of 100 mg Cap 00:00: mouth [place] 00 daily. [facility] coQ10, Yes [id number] 1{capsu Take 1 U nivers ubiquinol, 1-16 le} capsule by ity of 100 mg Cap 00:00: mouth [place] 00 daily. [facility] coQ10, Yes [id number] 1{capsu Take 1 U nivers ubiquinol, 1-16 le} capsule by ity of 100 mg Cap 00:00: mouth [place] 00 daily. [facility] coQ10, Yes [id number] 1{capsu Take 1 U nivers ubiquinol, 1-16 le} capsule by ity of 100 mg Cap 00:00: mouth [place] 00 daily. [facility] coQ10, Yes [id number] 1{capsu Take 1 U nivers ubiquinol, 1-16 le} capsule by ity of 100 mg Cap 00:00: mouth [place] 00 daily. [facility] coQ10, Yes [id number] 1{capsu Take 1 U nivers ubiquinol, 1-16 le} capsule by ity of 100 mg Cap 00:00: mouth [place] 00 daily. [facility] coQ10, Yes [id number] 1{capsu Take 1 U nivers ubiquinol, 1-16 le} capsule by ity of 100 mg Cap 00:00: mouth [place] 00 daily. [facility] coQ10, Yes [id number] 1{capsu Take 1 U nivers ubiquinol, 1-16 le} capsule by ity of 100 mg Cap 00:00: mouth [place] 00 daily. [facility] loratadine Yes [id number] 10mg Take 1 [facility] 10 mg 1-23 tablet by ity of tablet 00:00: mouth [place] 00 daily. [facility] loratadine Yes [id number] 10mg Take 1 [facility] 10 mg 1-23 tablet by ity of tablet 00:00: mouth [place] 00 daily. [facility] loratadine Yes [id number] 10mg Take 1 [facility] 10 mg 1-23 tablet by ity of tablet 00:00: mouth [place] 00 daily. [facility] loratadine Yes [id number] 10mg Take 1 [facility] 10 mg 1-23 tablet by ity of tablet 00:00: mouth [place] 00 daily. [facility] loratadine Yes [id number] 10mg Take 1 [facility] 10 mg 1-23 tablet by ity of tablet 00:00: mouth [place] 00 daily. [facility] loratadine 2021- No [id number] 10mg Take 1 [facility] 10 mg 1-23 06-13 tablet by ity of tablet 00:00: 00:00 mouth [place] 00 :00 daily. 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) SARS-COV-2 COVID-19 2022-07-27 Completed Unive rsity of CHRISTELLE-SUCROSE VACCINE 00:00:00 [facility] 12 YRS+, BIVALENT Branch 0.3ML, IM, (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) SARS-COV-2 COVID-19 2022-07-27 Completed Unive rsity of CHRISTELLE-SUCROSE VACCINE 00:00:00 [facility] 12 YRS+, BIVALENT Branch 0.3ML, IM, (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) SARS-COV-2 COVID-19 2022-07-27 Completed Unive rsity of CHRISTELLE-SUCROSE VACCINE 00:00:00 [facility] 12 YRS+, BIVALENT Branch 0.3ML, IM, (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) [facility] (hep a/hep b) 2022-02-24 Completed Uni versity of 00:00:00 [facility] (hep a/hep b) 2022-02-24 Completed Uni versity of 00:00:00 [facility] (hep a/hep b) 2022-02-24 Completed Uni versity of 00:00:00 [facility] (hep a/hep b) 2022-02-24 Completed Uni versity of 00:00:00 [facility] (hep a/hep b) 2022-02-24 Completed Uni versity of 00:00:00 [facility] (hep a/hep b) 2022-02-24 Completed Uni versity of 00:00:00 [facility] (hep a/hep b) 2022-02-24 Completed Uni versity of 00:00:00 [facility] (hep a/hep b) 2022-02-24 Completed Uni versity of 00:00:00 [facility] (hep a/hep b) 2022-02-24 Completed Uni versity of 00:00:00 [place] [facility] (hep a/hep b) 2022-02-24 Completed Uni versity of 00:00:00 [place] [facility] (hep a/hep b) 2022-02-24 Completed Uni versity of 00:00:00 [place] [facility] (hep a/hep b) 2022-02-24 Completed Uni versity of 00:00:00 [place] [facility] (hep a/hep b) 2022-02-24 Completed Uni versity of 00:00:00 [place] [facility] (hep a/hep b) 2022-02-24 Completed Uni versity of 00:00:00 [place] [facility] (hep a/hep b) 2022-02-24 Completed Uni versity of 00:00:00 [facility] (hep a/hep b) 2022-02-24 Completed Uni versity of 00:00:00 [place] [facility] (hep a/hep b) 2022-02-24 Completed Uni versity of 00:00:00 [facility] (hep a/hep b) 2022-02-24 Completed Uni versity of 00:00:00 [facility] (hep a/hep b) 2022-02-24 Completed Uni versity of 00:00:00 [facility] (hep a/hep b) 2022-02-24 Completed Uni versity of 00:00:00 [facility] (hep a/hep b) 2022-02-24 Completed Uni versity of 00:00:00 [place] [facility] (hep a/hep b) 2022-02-24 Completed Uni versity of 00:00:00 [place] [facility] (hep a/hep b) 2022-02-24 Completed Uni versity of 00:00:00 [place] [facility] (hep a/hep b) 2022-02-24 Completed Uni versity of 00:00:00 [facility] (hep a/hep b) 2022-02-24 Completed Uni versity of 00:00:00 [place] [facility] (hep a/hep b) 2022-02-24 Completed Uni versity of 00:00:00 [place] [facility] (hep a/hep b) 2022-02-24 Completed Uni versity of 00:00:00 [place] [facility] (hep a/hep b) 2022-02-24 Completed Uni versity of 00:00:00 [place] [facility] (hep a/hep b) 2022-02-24 Completed Uni versity of 00:00:00 [place] [facility] (hep a/hep b) 2022-02-24 Completed Uni versity of 00:00:00 [place] [facility] (hep a/hep b) 2022-02-24 Completed Uni versity of 00:00:00 [place] [facility] (hep a/hep b) 2022-02-24 Completed Uni versity of 00:00:00 [facility] (hep a/hep b) 2022-02-24 Completed Uni versity of 00:00:00 [facility] (hep a/hep b) 2022-02-24 Completed Uni versity of 00:00:00 [facility] (hep a/hep b) 2022-02-24 Completed Uni versity of 00:00:00 [facility] (hep a/hep b) 2022-02-24 Completed Uni versity of 00:00:00 [facility] (hep a/hep b) 2022-02-24 Completed Uni versity of 00:00:00 [facility] (hep a/hep b) 2022-02-24 Completed Uni versity of 00:00:00 [facility] (hep a/hep b) 2022-02-24 Completed Uni versity of 00:00:00 [facility] (hep a/hep b) 2022-02-24 Completed Uni versity of 00:00:00 [place] [facility] (hep a/hep b) 2022-02-24 Completed Uni versity of 00:00:00 [facility] (hep a/hep b) 2022-02-24 Completed Uni versity of 00:00:00 [facility] (hep a/hep b) [...] b) 2022-02-24 Completed Uni versity of 00:00:00 [place] [facility] (hep a/hep b) 2022-02-24 Completed Uni versity of 00:00:00 [facility] (hep a/hep b) 2022-02-24 Completed Uni versity of 00:00:00 [facility] (hep a/hep b) 2022-02-24 Completed Uni versity of 00:00:00 [place] [facility] (hep a/hep b) 2022-02-24 Completed Uni versity of 00:00:00 [facility] (hep a/hep b) 2022-02-24 Completed Uni versity of 00:00:00 [facility] (hep a/hep b) [...] b) 2022-01-14 Completed Uni versity of 00:00:00 [place] [facility] (hep a/hep b) 2022-01-14 Completed Uni versity of 00:00:00 [place] [facility] (hep a/hep b) 2022-01-14 Completed Uni versity of 00:00:00 [place] [facility] (hep a/hep b) 2022-01-14 Completed Uni versity of 00:00:00 [place] [facility] (hep a/hep b) 2022-01-14 Completed Uni versity of 00:00:00 [place] [facility] (hep a/hep b) 2022-01-14 Completed Uni versity of 00:00:00 [place] [facility] (hep a/hep b) 2022-01-14 Completed Uni versity of 00:00:00 [place] [facility] (hep a/hep b) 2022-01-14 Completed Uni versity of 00:00:00 [facility] (hep a/hep b) 2022-01-14 Completed Uni versity of 00:00:00 [facility] (hep a/hep b) 2022-01-14 Completed Uni versity of 00:00:00 [facility] (hep a/hep b) 2022-01-14 Completed Uni versity of 00:00:00 [facility] (hep a/hep b) 2022-01-14 Completed Uni versity of 00:00:00 [facility] (hep a/hep b) 2022-01-14 Completed Uni versity of 00:00:00 [facility] (hep a/hep b) 2022-01-14 Completed Uni versity of 00:00:00 [facility] (hep a/hep b) 2022-01-14 Completed Uni versity of 00:00:00 [facility] (hep a/hep b) 2022-01-14 Completed Uni versity of 00:00:00 [place] [facility] (hep a/hep b) 2022-01-14 Completed Uni versity of 00:00:00 [facility] (hep a/hep b) 2022-01-14 Completed Uni versity of 00:00:00 [facility] (hep a/hep b) 2022-01-14 Completed Uni versity of 00:00:00 [facility] (hep a/hep b) [...] b) 2022-01-14 Completed Uni versity of 00:00:00 [place] [facility] (hep a/hep b) 2022-01-14 Completed Uni versity of 00:00:00 [place] [facility] (hep a/hep b) 2022-01-14 Completed Uni versity of 00:00:00 [facility] (hep a/hep b) 2022-01-14 Completed Uni versity of 00:00:00 [facility] (hep a/hep b) 2022-01-14 Completed Uni versity of 00:00:00 [place] [facility] (hep a/hep b) 2022-01-14 Completed Uni versity of 00:00:00 [facility] (hep a/hep b) 2022-01-14 Completed Uni versity of 00:00:00 [place] [facility] (hep a/hep b) 2022-01-14 Completed Uni versity of 00:00:00 [facility] (hep a/hep b) 2022-01-14 Completed Uni versity of 00:00:00 [place] [facility] (hep a/hep b) 2022-01-14 Completed Uni versity of 00:00:00 [place] [facility] (hep a/hep b) 2022-01-14 Completed Uni versity of 00:00:00 [place] [facility] (hep a/hep b) 2022-01-14 Completed Uni versity of 00:00:00 [place] [facility] (hep a/hep b) 2022-01-14 Completed Uni versity of 00:00:00 [place] [facility] (hep a/hep b) 2022-01-14 Completed Uni versity of 00:00:00 [facility] (hep a/hep b) 2022-01-14 Completed Uni versity of 00:00:00 [facility] (hep a/hep b) 2022-01-14 Completed Uni versity of 00:00:00 [facility] (hep a/hep b) 2022-01-14 Completed Uni versity of 00:00:00 [facility] (hep a/hep b) 2022-01-14 Completed Uni versity of 00:00:00 [facility] (hep a/hep b) 2022-01-14 Completed Uni versity of 00:00:00 [facility] (hep a/hep b) 2022-01-14 Completed Uni versity of 00:00:00 [facility] (hep a/hep b) 2022-01-14 Completed Uni versity of 00:00:00 [facility] (hep a/hep b) 2022-01-14 Completed Uni versity of 00:00:00 [facility] (hep a/hep b) 2022-01-14 Completed Uni versity of 00:00:00 [facility] (hep a/hep b) 2022-01-14 Completed Uni versity of 00:00:00 [facility] (hep a/hep b) 2022-01-14 Completed Uni versity of 00:00:00 [facility] (hep a/hep b) 2022-01-14 Completed Uni versity of 00:00:00 [facility] (hep a/hep b) 2022-01-14 Completed Uni versity of 00:00:00 [facility] (hep a/hep b) 2022-01-14 Completed Uni versity of 00:00:00 [facility] (hep a/hep b) 2022-01-14 Completed Uni versity of 00:00:00 [facility] SARS-COV-2 COVID-19 2021-07-23 Completed Unive rsity of PFIZER VACCINE 00:00:00 [facility] [place] [facility] SARS-COV-2 COVID-19 2021-07-23 Completed Unive rsity of PFIZER VACCINE 00:00:00 [facility] SARS-COV-2 COVID-19 2021-07-23 Completed Unive rsity of PFIZER VACCINE 00:00:00 [facility] SARS-COV-2 COVID-19 2021-07-23 Completed Unive rsity of PFIZER VACCINE 00:00:00 [facility] SARS-COV-2 COVID-19 2021-07-23 Completed Unive rsity of PFIZER VACCINE 00:00:00 [facility] SARS-COV-2 COVID-19 2021-07-23 Completed Unive rsity of PFIZER VACCINE 00:00:00 [facility] SARS-COV-2 COVID-19 2021-07-23 Completed Unive rsity of PFIZER VACCINE 00:00:00 [facility] SARS-COV-2 COVID-19 2021-07-23 Completed Unive rsity of PFIZER VACCINE 00:00:00 [facility] SARS-COV-2 COVID-19 2021-07-23 Completed Unive rsity of PFIZER VACCINE 00:00:00 [facility] SARS-COV-2 COVID-19 2021-07-23 Completed Unive rsity of PFIZER VACCINE 00:00:00 [facility] SARS-COV-2 COVID-19 2021-07-23 Completed Unive rsity of PFIZER VACCINE 00:00:00 [facility] SARS-COV-2 COVID-19 2021-07-23 Completed Unive rsity of PFIZER VACCINE 00:00:00 [facility] SARS-COV-2 COVID-19 2021-07-23 Completed Unive rsity of PFIZER VACCINE 00:00:00 [facility] SARS-COV-2 COVID-19 2021-07-23 Completed Unive rsity of PFIZER VACCINE 00:00:00 [facility] SARS-COV-2 COVID-19 2021-07-23 Completed Unive rsity of PFIZER VACCINE 00:00:00 [facility] SARS-COV-2 COVID-19 2021-07-23 Completed Unive rsity of PFIZER VACCINE 00:00:00 [facility] [place] [facility] SARS-COV-2 COVID-19 2021-07-23 Completed Unive rsity of PFIZER VACCINE 00:00:00 [facility] SARS-COV-2 COVID-19 2021-07-23 Completed Unive rsity of PFIZER VACCINE 00:00:00 [facility] SARS-COV-2 COVID-19 2021-07-23 Completed Unive rsity of PFIZER VACCINE 00:00:00 [facility] SARS-COV-2 COVID-19 2021-07-23 Completed Unive rsity of PFIZER VACCINE 00:00:00 [facility] SARS-COV-2 COVID-19 2021-07-23 Completed Unive rsity of PFIZER VACCINE 00:00:00 [facility] SARS-COV-2 COVID-19 2021-07-23 Completed Unive rsity of PFIZER VACCINE 00:00:00 [facility] SARS-COV-2 COVID-19 2021-07-23 Completed Unive rsity of PFIZER VACCINE 00:00:00 [facility] SARS-COV-2 COVID-19 2021-07-23 Completed Unive rsity of PFIZER VACCINE 00:00:00 [facility] SARS-COV-2 COVID-19 2021-07-23 Completed Unive rsity of PFIZER VACCINE 00:00:00 [facility] SARS-COV-2 COVID-19 2021-07-23 Completed Unive rsity of PFIZER VACCINE 00:00:00 [facility] SARS-COV-2 COVID-19 2021-07-23 Completed Unive rsity of PFIZER VACCINE 00:00:00 [facility] SARS-COV-2 COVID-19 2021-07-23 Completed Unive rsity of PFIZER VACCINE 00:00:00 [facility] SARS-COV-2 COVID-19 2021-07-23 Completed Unive rsity of PFIZER VACCINE 00:00:00 [facility] SARS-COV-2 COVID-19 2021-07-23 Completed Unive rsity of PFIZER VACCINE 00:00:00 [facility] SARS-COV-2 COVID-19 2021-07-23 Completed Unive rsity of PFIZER VACCINE 00:00:00 [facility] SARS-COV-2 COVID-19 2021-07-23 Completed Unive rsity of PFIZER VACCINE 00:00:00 [facility] SARS-COV-2 COVID-19 2021-07-23 Completed Unive rsity of PFIZER VACCINE 00:00:00 [facility] SARS-COV-2 COVID-19 2021-07-23 Completed Unive rsity of PFIZER VACCINE 00:00:00 [facility] SARS-COV-2 COVID-19 2021-07-23 Completed Unive rsity of PFIZER VACCINE 00:00:00 [facility] SARS-COV-2 COVID-19 2021-07-23 Completed Unive rsity of PFIZER VACCINE 00:00:00 [facility] SARS-COV-2 COVID-19 2021-07-23 Completed Unive rsity of PFIZER VACCINE 00:00:00 [facility] SARS-COV-2 COVID-19 2021-07-23 Completed Unive rsity of PFIZER VACCINE 00:00:00 [facility] SARS-COV-2 COVID-19 2021-07-23 Completed Unive rsity of PFIZER VACCINE 00:00:00 [facility] SARS-COV-2 COVID-19 2021-07-23 Completed Unive rsity of PFIZER VACCINE 00:00:00 [facility] SARS-COV-2 COVID-19 2021-07-23 Completed Unive rsity of PFIZER VACCINE 00:00:00 [facility] SARS-COV-2 COVID-19 2021-07-23 Completed Unive rsity of PFIZER VACCINE 00:00:00 [facility] SARS-COV-2 COVID-19 2021-07-23 Completed Unive rsity of PFIZER VACCINE 00:00:00 [facility] SARS-COV-2 COVID-19 2021-07-23 Completed Unive rsity of PFIZER VACCINE 00:00:00 [facility] SARS-COV-2 COVID-19 2021-07-23 Completed Unive rsity of PFIZER VACCINE 00:00:00 [facility] SARS-COV-2 COVID-19 2021-07-23 Completed Unive rsity of PFIZER VACCINE 00:00:00 [facility] SARS-COV-2 COVID-19 2021-07-23 Completed [facility] PFIZER VACCINE 00:00:00 [facility] SARS-COV-2 COVID-19 2021-07-23 Completed [facility] PFIZER VACCINE 00:00:00 [facility] SARS-COV-2 COVID-19 2021-07-23 Completed [facility] PFIZER VACCINE 00:00:00 [facility] SARS-COV-2 COVID-19 2021-07-23 Completed [facility] of PFIZER VACCINE 00:00:00 [facility] SARS-COV-2 COVID-19 2021-07-23 Completed [facility] of PFIZER VACCINE 00:00:00 [facility] SARS-COV-2 COVID-19 2021-07-23 Completed [facility] of PFIZER VACCINE 00:00:00 [facility] SARS-COV-2 COVID-19 2021-07-23 Completed [facility] PFIZER VACCINE 00:00:00 [facility] SARS-COV-2 COVID-19 2021-07-23 Completed [facility] PFIZER VACCINE 00:00:00 [facility] SARS-COV-2 COVID-19 2021-07-23 Completed [facility] PFIZER VACCINE 00:00:00 [facility] Influenza Virus 2021-05-27 Completed [facility] of Vaccine (3+ yrs) 00:00:00 [facility] Influenza Virus 2021-05-27 Completed [facility] of Vaccine (3+ yrs) 00:00:00 [facility] Influenza Virus 2021-05-27 Completed [facility] of Vaccine (3+ yrs) 00:00:00 [facility] Influenza Virus 2021-05-27 Completed [facility] Vaccine (3+ yrs) 00:00:00 [facility] Influenza Virus 2021-05-27 Completed [facility] Vaccine (3+ yrs) 00:00:00 [facility] Influenza Virus 2021-05-27 Completed [facility] Vaccine (3+ yrs) 00:00:00 [facility] Influenza Virus 2021-05-27 Completed [facility] Vaccine (3+ yrs) 00:00:00 [facility] Influenza Virus 2021-05-27 Completed [facility] Vaccine (3+ yrs) 00:00:00 [facility] Influenza Virus 2021-05-27 Completed [facility] Vaccine (3+ yrs) 00:00:00 [facility] Influenza Virus 2021-05-27 Completed [facility] Vaccine (3+ yrs) 00:00:00 [facility] Influenza Virus 2021-05-27 Completed [facility] of Vaccine (3+ yrs) 00:00:00 [facility] Influenza Virus 2021-05-27 Completed [facility] Vaccine (3+ yrs) 00:00:00 [facility] Influenza Virus 2021-05-27 Completed [facility] Vaccine (3+ yrs) 00:00:00 [facility] Influenza Virus 2021-05-27 Completed [facility] Vaccine (3+ yrs) 00:00:00 [facility] Influenza Virus 2021-05-27 Completed [facility] Vaccine (3+ yrs) 00:00:00 [facility] Influenza Virus 2021-05-27 Completed [facility] Vaccine (3+ yrs) 00:00:00 [facility] Influenza Virus 2021-05-27 Completed [facility] Vaccine (3+ yrs) 00:00:00 [facility] Influenza Virus 2021-05-27 Completed [facility] Vaccine (3+ yrs) 00:00:00 [facility] Influenza Virus 2021-05-27 Completed [facility] Vaccine (3+ yrs) 00:00:00 [facility] Influenza Virus 2021-05-27 Completed [facility] of Vaccine (3+ yrs) 00:00:00 [facility] Influenza Virus 2021-05-27 Completed [facility] Vaccine (3+ yrs) 00:00:00 [facility] Influenza Virus 2021-05-27 Completed [facility] Vaccine (3+ yrs) 00:00:00 [facility] Influenza Virus 2021-05-27 Completed [facility] Vaccine (3+ yrs) 00:00:00 [facility] Influenza Virus 2021-05-27 Completed [facility] Vaccine (3+ yrs) 00:00:00 [facility] Influenza Virus 2021-05-27 Completed [facility] Vaccine (3+ yrs) 00:00:00 [facility] Influenza Virus 2021-05-27 Completed [facility] Vaccine (3+ yrs) 00:00:00 [facility] Influenza Virus 2021-05-27 Completed [facility] Vaccine (3+ yrs) 00:00:00 [facility] Influenza Virus 2021-05-27 Completed [facility] Vaccine (3+ yrs) 00:00:00 [facility] Influenza Virus 2021-05-27 Completed [facility] of Vaccine (3+ yrs) 00:00:00 [facility] Influenza Virus 2021-05-27 Completed [facility] of Vaccine (3+ yrs) 00:00:00 [facility] Influenza Virus 2021-05-27 Completed [facility] of Vaccine (3+ yrs) 00:00:00 [facility] Influenza Virus 2021-05-27 Completed [facility] of Vaccine (3+ yrs) 00:00:00 [facility] Influenza Virus 2021-05-27 Completed [facility] of Vaccine (3+ yrs) 00:00:00 [facility] Influenza Virus 2021-05-27 Completed [facility] of Vaccine (3+ yrs) 00:00:00 [facility] Influenza Virus 2021-05-27 Completed [facility] of Vaccine (3+ yrs) 00:00:00 [facility] Influenza Virus 2021-05-27 Completed [facility] Vaccine (3+ yrs) 00:00:00 [facility] Influenza Virus 2021-05-27 Completed [facility] of Vaccine (3+ yrs) 00:00:00 [facility] Influenza Virus 2021-05-27 Completed [facility] Vaccine (3+ yrs) 00:00:00 [facility] Influenza Virus 2021-05-27 Completed [facility] of Vaccine (3+ yrs) 00:00:00 [facility] Influenza Virus 2021-05-27 Completed [facility] of Vaccine (3+ yrs) 00:00:00 [facility] Influenza Virus 2021-05-27 Completed [facility] of Vaccine (3+ yrs) 00:00:00 [facility] Influenza Virus 2021-05-27 Completed [facility] of Vaccine (3+ yrs) 00:00:00 [facility] Influenza Virus 2021-05-27 Completed [facility] of Vaccine (3+ yrs) 00:00:00 [facility] Influenza Virus 2021-05-27 Completed [facility] of Vaccine (3+ yrs) 00:00:00 [facility] Influenza Virus 2021-05-27 Completed [facility] of Vaccine (3+ yrs) 00:00:00 [facility] Influenza Virus 2021-05-27 Completed [facility] of Vaccine (3+ yrs) 00:00:00 [facility] Influenza Virus 2021-05-27 Completed [facility] of Vaccine (3+ yrs) 00:00:00 [facility] Influenza Virus 2021-05-27 Completed [facility] Vaccine (3+ yrs) 00:00:00 [facility] Influenza Virus 2021-05-27 Completed [facility] Vaccine (3+ yrs) 00:00:00 [facility] Influenza Virus 2021-05-27 Completed [facility] Vaccine (3+ yrs) 00:00:00 [facility] Influenza Virus 2021-05-27 Completed [facility] of Vaccine (3+ yrs) 00:00:00 [facility] Influenza Virus 2021-05-27 Completed [facility] Vaccine (3+ yrs) 00:00:00 [facility] Influenza Virus 2021-05-27 Completed [facility] Vaccine (3+ yrs) 00:00:00 [facility] Influenza Virus 2021-05-27 Completed [facility] Vaccine (3+ yrs) 00:00:00 [facility] Influenza Virus 2021-05-27 Completed [facility] Vaccine (3+ yrs) 00:00:00 [facility] SARS-COV-2 COVID-19 2020-12-13 Completed [facility] PFIZER VACCINE 00:00:00 [facility] SARS-COV-2 COVID-19 2020-12-13 Completed [facility] PFIZER VACCINE 00:00:00 [facility] SARS-COV-2 COVID-19 2020-12-13 Completed [facility] of PFIZER VACCINE 00:00:00 [facility] SARS-COV-2 COVID-19 2020-12-13 Completed [facility] of PFIZER VACCINE 00:00:00 [facility] SARS-COV-2 COVID-19 2020-12-13 Completed [facility] of PFIZER VACCINE 00:00:00 [facility] SARS-COV-2 COVID-19 2020-12-13 Completed [facility] of PFIZER VACCINE 00:00:00 [facility] SARS-COV-2 COVID-19 2020-12-13 Completed [facility] PFIZER VACCINE 00:00:00 [facility] SARS-COV-2 COVID-19 2020-12-13 Completed [facility] of PFIZER VACCINE 00:00:00 [facility] SARS-COV-2 COVID-19 2020-12-13 Completed [facility] of PFIZER VACCINE 00:00:00 [facility] SARS-COV-2 COVID-19 2020-12-13 Completed [facility] of PFIZER VACCINE 00:00:00 [facility] SARS-COV-2 COVID-19 2020-12-13 Completed [facility] of PFIZER VACCINE 00:00:00 [facility] SARS-COV-2 COVID-19 2020-12-13 Completed [facility] PFIZER VACCINE 00:00:00 [facility] SARS-COV-2 COVID-19 2020-12-13 Completed [facility] of PFIZER VACCINE 00:00:00 [facility] SARS-COV-2 COVID-19 2020-12-13 Completed [facility] PFIZER VACCINE 00:00:00 [facility] SARS-COV-2 COVID-19 2020-12-13 Completed [facility] PFIZER VACCINE 00:00:00 [facility] SARS-COV-2 COVID-19 2020-12-13 Completed [facility] PFIZER VACCINE 00:00:00 [facility] SARS-COV-2 COVID-19 2020-12-13 Completed [facility] PFIZER VACCINE 00:00:00 [facility] SARS-COV-2 COVID-19 2020-12-13 Completed [facility] PFIZER VACCINE 00:00:00 [facility] SARS-COV-2 COVID-19 2020-12-13 Completed [facility] of PFIZER VACCINE 00:00:00 [facility] SARS-COV-2 COVID-19 2020-12-13 Completed [facility] of PFIZER VACCINE 00:00:00 [facility] SARS-COV-2 COVID-19 2020-12-13 Completed [facility] PFIZER VACCINE 00:00:00 [facility] SARS-COV-2 COVID-19 2020-12-13 Completed [facility] of PFIZER VACCINE 00:00:00 [facility] SARS-COV-2 COVID-19 2020-12-13 Completed [facility] of PFIZER VACCINE 00:00:00 [facility] SARS-COV-2 COVID-19 2020-12-13 Completed [facility] of PFIZER VACCINE 00:00:00 [facility] SARS-COV-2 COVID-19 2020-12-13 Completed [facility] of PFIZER VACCINE 00:00:00 [facility] SARS-COV-2 COVID-19 2020-12-13 Completed [facility] of PFIZER VACCINE 00:00:00 [facility] SARS-COV-2 COVID-19 2020-12-13 Completed [facility] of PFIZER VACCINE 00:00:00 [facility] SARS-COV-2 COVID-19 2020-12-13 Completed [facility] of PFIZER VACCINE 00:00:00 [facility] SARS-COV-2 COVID-19 2020-12-13 Completed [facility] of PFIZER VACCINE 00:00:00 [facility] SARS-COV-2 COVID-19 2020-12-13 Completed [facility] of PFIZER VACCINE 00:00:00 [facility] SARS-COV-2 COVID-19 2020-12-13 Completed [facility] of PFIZER VACCINE 00:00:00 [facility] SARS-COV-2 COVID-19 2020-12-13 Completed [facility] of PFIZER VACCINE 00:00:00 [facility] SARS-COV-2 COVID-19 2020-12-13 Completed [facility] of PFIZER VACCINE 00:00:00 [facility] SARS-COV-2 COVID-19 2020-12-13 Completed [facility] of PFIZER VACCINE 00:00:00 [facility] SARS-COV-2 COVID-19 2020-12-13 Completed [facility] of PFIZER VACCINE 00:00:00 [facility] SARS-COV-2 COVID-19 2020-12-13 Completed [facility] of PFIZER VACCINE 00:00:00 [facility] SARS-COV-2 COVID-19 2020-12-13 Completed [facility] PFIZER VACCINE 00:00:00 [facility] SARS-COV-2 COVID-19 2020-12-13 Completed [facility] PFIZER VACCINE 00:00:00 [facility] SARS-COV-2 COVID-19 2020-12-13 Completed [facility] of PFIZER VACCINE 00:00:00 [facility] SARS-COV-2 COVID-19 2020-12-13 Completed [facility] of PFIZER VACCINE 00:00:00 [facility] SARS-COV-2 COVID-19 2020-12-13 Completed [facility] of PFIZER VACCINE 00:00:00 [facility] SARS-COV-2 COVID-19 2020-12-13 Completed [facility] PFIZER VACCINE 00:00:00 [facility] SARS-COV-2 COVID-19 2020-12-13 Completed [facility] PFIZER VACCINE 00:00:00 [facility] SARS-COV-2 COVID-19 2020-12-13 Completed [facility] PFIZER VACCINE 00:00:00 [facility] SARS-COV-2 COVID-19 2020-12-13 Completed [facility] PFIZER VACCINE 00:00:00 [facility] SARS-COV-2 COVID-19 2020-12-13 Completed [facility] PFIZER VACCINE 00:00:00 [facility] SARS-COV-2 COVID-19 2020-12-13 Completed [facility] PFIZER VACCINE 00:00:00 [facility] SARS-COV-2 COVID-19 2020-12-13 Completed [facility] of PFIZER VACCINE 00:00:00 [facility] SARS-COV-2 COVID-19 2020-12-13 Completed [facility] of PFIZER VACCINE 00:00:00 [facility] SARS-COV-2 COVID-19 2020-12-13 Completed [facility] of PFIZER VACCINE 00:00:00 [facility] SARS-COV-2 COVID-19 2020-12-13 Completed [facility] of PFIZER VACCINE 00:00:00 [facility] SARS-COV-2 COVID-19 2020-12-13 Completed [facility] of PFIZER VACCINE 00:00:00 [facility] SARS-COV-2 COVID-19 2020-12-13 Completed [facility] of PFIZER VACCINE 00:00:00 [facility] SARS-COV-2 COVID-19 2020-12-13 Completed [facility] of PFIZER VACCINE 00:00:00 [facility] SARS-COV-2 COVID-19 2020-12-13 Completed [facility] of PFIZER VACCINE 00:00:00 [facility] SARS-COV-2 COVID-19 2020-11-22 Completed [facility] PFIZER VACCINE 00:00:00 [facility] SARS-COV-2 COVID-19 2020-11-22 Completed [facility] PFIZER VACCINE 00:00:00 [facility] SARS-COV-2 COVID-19 2020-11-22 Completed [facility] PFIZER VACCINE 00:00:00 [facility] SARS-COV-2 COVID-19 2020-11-22 Completed [facility] of PFIZER VACCINE 00:00:00 [facility] SARS-COV-2 COVID-19 2020-11-22 Completed [facility] of PFIZER VACCINE 00:00:00 [facility] SARS-COV-2 COVID-19 2020-11-22 Completed [facility] of PFIZER VACCINE 00:00:00 [facility] SARS-COV-2 COVID-19 2020-11-22 Completed [facility] of PFIZER VACCINE 00:00:00 [facility] SARS-COV-2 COVID-19 2020-11-22 Completed [facility] of PFIZER VACCINE 00:00:00 [facility] SARS-COV-2 COVID-19 2020-11-22 Completed [facility] of PFIZER VACCINE 00:00:00 [facility] SARS-COV-2 COVID-19 2020-11-22 Completed [facility] of PFIZER VACCINE 00:00:00 [facility] SARS-COV-2 COVID-19 2020-11-22 Completed [facility] of PFIZER VACCINE 00:00:00 [facility] SARS-COV-2 COVID-19 2020-11-22 Completed [facility] of PFIZER VACCINE 00:00:00 [facility] SARS-COV-2 COVID-19 2020-11-22 Completed [facility] of PFIZER VACCINE 00:00:00 [facility] SARS-COV-2 COVID-19 2020-11-22 Completed [facility] PFIZER VACCINE 00:00:00 [facility] SARS-COV-2 COVID-19 2020-11-22 Completed [facility] of PFIZER VACCINE 00:00:00 [facility] SARS-COV-2 COVID-19 2020-11-22 Completed [facility] of PFIZER VACCINE 00:00:00 [facility] SARS-COV-2 COVID-19 2020-11-22 Completed [facility] of PFIZER VACCINE 00:00:00 [facility] SARS-COV-2 COVID-19 2020-11-22 Completed [facility] of PFIZER VACCINE 00:00:00 [facility] SARS-COV-2 COVID-19 2020-11-22 Completed [facility] of PFIZER VACCINE 00:00:00 [facility] SARS-COV-2 COVID-19 2020-11-22 Completed [facility] of PFIZER VACCINE 00:00:00 [facility] SARS-COV-2 COVID-19 2020-11-22 Completed [facility] of PFIZER VACCINE 00:00:00 [facility] SARS-COV-2 COVID-19 2020-11-22 Completed [facility] of PFIZER VACCINE 00:00:00 [facility] SARS-COV-2 COVID-19 2020-11-22 Completed [facility] of PFIZER VACCINE 00:00:00 [facility] SARS-COV-2 COVID-19 2020-11-22 Completed [facility] of PFIZER VACCINE 00:00:00 [facility] SARS-COV-2 COVID-19 2020-11-22 Completed [facility] of PFIZER VACCINE 00:00:00 [facility] SARS-COV-2 COVID-19 2020-11-22 Completed [facility] of PFIZER VACCINE 00:00:00 [facility] SARS-COV-2 COVID-19 2020-11-22 Completed [facility] of PFIZER VACCINE 00:00:00 [facility] SARS-COV-2 COVID-19 2020-11-22 Completed [facility] of PFIZER VACCINE 00:00:00 [facility] SARS-COV-2 COVID-19 2020-11-22 Completed [facility] of PFIZER VACCINE 00:00:00 [facility] SARS-COV-2 COVID-19 2020-11-22 Completed [facility] of PFIZER VACCINE 00:00:00 [facility] SARS-COV-2 COVID-19 2020-11-22 Completed [facility] of PFIZER VACCINE 00:00:00 [facility] SARS-COV-2 COVID-19 2020-11-22 Completed [facility] of PFIZER VACCINE 00:00:00 [facility] SARS-COV-2 COVID-19 2020-11-22 Completed [facility] of PFIZER VACCINE 00:00:00 [facility] SARS-COV-2 COVID-19 2020-11-22 Completed [facility] of PFIZER VACCINE 00:00:00 [facility] SARS-COV-2 COVID-19 2020-11-22 Completed [facility] of PFIZER VACCINE 00:00:00 [facility] SARS-COV-2 COVID-19 2020-11-22 Completed [facility] of PFIZER VACCINE 00:00:00 [facility] SARS-COV-2 COVID-19 2020-11-22 Completed [facility] of PFIZER VACCINE 00:00:00 [facility] SARS-COV-2 COVID-19 2020-11-22 Completed [facility] of PFIZER VACCINE 00:00:00 [facility] SARS-COV-2 COVID-19 2020-11-22 Completed [facility] of PFIZER VACCINE 00:00:00 [facility] SARS-COV-2 COVID-19 2020-11-22 Completed [facility] of PFIZER VACCINE 00:00:00 [facility] SARS-COV-2 COVID-19 2020-11-22 Completed [facility] of PFIZER VACCINE 00:00:00 [facility] SARS-COV-2 COVID-19 2020-11-22 Completed [facility] of PFIZER VACCINE 00:00:00 [facility] SARS-COV-2 COVID-19 2020-11-22 Completed [facility] of PFIZER VACCINE 00:00:00 [facility] SARS-COV-2 COVID-19 2020-11-22 Completed [facility] of PFIZER VACCINE 00:00:00 [facility] SARS-COV-2 COVID-19 2020-11-22 Completed [facility] of PFIZER VACCINE 00:00:00 [facility] SARS-COV-2 COVID-19 2020-11-22 Completed [facility] of PFIZER VACCINE 00:00:00 [facility] SARS-COV-2 COVID-19 2020-11-22 Completed [facility] of PFIZER VACCINE 00:00:00 [facility] SARS-COV-2 COVID-19 2020-11-22 Completed [facility] of PFIZER VACCINE 00:00:00 [facility] SARS-COV-2 COVID-19 2020-11-22 Completed [facility] of PFIZER VACCINE 00:00:00 [facility] SARS-COV-2 COVID-19 2020-11-22 Completed [facility] of PFIZER VACCINE 00:00:00 [facility] SARS-COV-2 COVID-19 2020-11-22 Completed [facility] of PFIZER VACCINE 00:00:00 [facility] SARS-COV-2 COVID-19 2020-11-22 Completed [facility] of PFIZER VACCINE 00:00:00 [facility] SARS-COV-2 COVID-19 2020-11-22 Completed [facility] of PFIZER VACCINE 00:00:00 [facility] SARS-COV-2 COVID-19 2020-11-22 Completed [facility] of PFIZER VACCINE 00:00:00 [facility] SARS-COV-2 COVID-19 2020-11-22 Completed [facility] of PFIZER VACCINE 00:00:00 [facility] Influenza Virus 2020-05-27 Completed [facility] Vaccine Recomb Quad 00:00:00 [facility], Preserv and ABX Branc h Free 18-64 YRS Influenza Virus 2020-05-27 Completed [facility] of Vaccine Recomb Quad 00:00:00 [facility], Preserv and ABX Branc h [...] [facility] of Vaccine Recomb Quad 00:00:00 [facility], Preserv and ABX Branc h [...] 2019-08-10 Completed University o f Polysaccharide, 00:00:00 [facility] ical PPSV23 (PNEUMOVAX) Branch TDAP (ADACEL) VACCINE 2019-08-10 Completed Uni versity of 00:00:00 [facility] TDAP 2019-08-10 Completed University of 00:00:00 [facility] Pneumococcal 2019-08-10 Completed University o f Polysaccharide, 00:00:00 [facility] ical PPSV23 (PNEUMOVAX) Branch TDAP (ADACEL) VACCINE 2019-08-10 Completed Uni versity of 00:00:00 [facility] TDAP 2019-08-10 Completed University of 00:00:00 [facility] Pneumococcal 2019-08-10 Completed [facility] o f Polysaccharide, 00:00:00 [facility] PPSV23 (PNEUMOVAX) [facility] TDAP (ADACEL) VACCINE 2019-08-10 Completed Uni versity of 00:00:00 [facility] TDAP 2019-08-10 Completed University of 00:00:00 [facility] Pneumococcal 2019-08-10 Completed [facility] o f Polysaccharide, 00:00:00 [facility] PPSV23 (PNEUMOVAX) [facility] TDAP (ADACEL) VACCINE 2019-08-10 Completed Uni versity of 00:00:00 [facility] TDAP 2019-08-10 Completed [facility] of 00:00:00 [facility] Pneumococcal 2019-08-10 Completed [facility] o f Polysaccharide, 00:00:00 [facility] PPSV23 (PNEUMOVAX) [facility] TDAP (ADACEL) VACCINE 2019-08-10 Completed Uni versity of 00:00:00 [facility] TDAP 2019-08-10 Completed University of 00:00:00 [facility] Pneumococcal 2019-08-10 Completed [facility] o f Polysaccharide, 00:00:00 [facility] PPSV23 (PNEUMOVAX) [facility] TDAP (ADACEL) VACCINE 2019-08-10 Completed Uni versity of 00:00:00 [facility] TDAP 2019-08-10 Completed [facility] of 00:00:00 [facility] Pneumococcal 2019-08-10 Completed [facility] o f Polysaccharide, 00:00:00 [facility] PPSV23 (PNEUMOVAX) [facility] TDAP (ADACEL) VACCINE 2019-08-10 Completed [facility] vers[facility] of 00:00:00 [facility] TDAP 2019-08-10 Completed [facility] of 00:00:00 [facility] Pneumococcal 2019-08-10 Completed [facility] o f Polysaccharide, 00:00:00 [facility] PPSV23 (PNEUMOVAX) Branch TDAP (ADACEL) VACCINE 2019-08-10 Completed Uni versity of 00:00:00 [facility] TDAP 2019-08-10 Completed [facility] of 00:00:00 [facility] Pneumococcal 2019-08-10 Completed [facility] o f Polysaccharide, 00:00:00 [facility] PPSV23 (PNEUMOVAX) Branch TDAP (ADACEL) VACCINE 2019-08-10 Completed Uni vers[facility] of 00:00:00 [facility] TDAP 2019-08-10 Completed [facility] of 00:00:00 [facility] Pneumococcal 2019-08-10 Completed [facility] o f Polysaccharide, 00:00:00 [facility] PPSV23 (PNEUMOVAX) [facility] TDAP (ADACEL) VACCINE 2019-08-10 Completed Uni versity of 00:00:00 [facility] TDAP 2019-08-10 Completed [facility] of 00:00:00 [facility] Pneumococcal 2019-08-10 Completed [facility] o f Polysaccharide, 00:00:00 [facility] PPSV23 (PNEUMOVAX) Branch TDAP (ADACEL) VACCINE 2019-08-10 Completed [facility] versity of 00:00:00 [facility] TDAP 2019-08-10 Completed [facility] of 00:00:00 [facility] Pneumococcal 2019-08-10 Completed [facility] o f Polysaccharide, 00:00:00 [facility] PPSV23 (PNEUMOVAX) Branch TDAP (ADACEL) VACCINE 2019-08-10 Completed Uni vers[facility] of 00:00:00 [facility] TDAP 2019-08-10 Completed [facility] of 00:00:00 [facility] Pneumococcal 2019-08-10 Completed [facility] o f Polysaccharide, 00:00:00 [facility] PPSV23 (PNEUMOVAX) Branch TDAP (ADACEL) VACCINE 2019-08-10 Completed Uni vers[facility] of 00:00:00 [facility] TDAP 2019-08-10 Completed University of 00:00:00 [facility] Pneumococcal 2019-08-10 Completed [facility] o f Polysaccharide, 00:00:00 [facility] PPSV23 (PNEUMOVAX) Branch TDAP (ADACEL) VACCINE 2019-08-10 Completed Uni versity of 00:00:00 [facility] TDAP 2019-08-10 Completed [facility] 00:00:00 [facility] Pneumococcal 2019-08-10 Completed University o f Polysaccharide, 00:00:00 [place] [facility] PPSV23 (PNEUMOVAX) Branch TDAP (ADACEL) VACCINE 2019-08-10 Completed Uni versity of 00:00:00 [facility] TDAP 2019-08-10 Completed [facility] of 00:00:00 [facility] Pneumococcal 2019-08-10 Completed [facility] o f Polysaccharide, 00:00:00 [place] [facility] PPSV23 (PNEUMOVAX) Branch TDAP (ADACEL) VACCINE 2019-08-10 Completed Uni versity of 00:00:00 [facility] TDAP 2019-08-10 Completed [facility] of 00:00:00 [facility] Pneumococcal 2019-08-10 Completed [facility] o f Polysaccharide, 00:00:00 [place] [facility] PPSV23 (PNEUMOVAX) Branch TDAP (ADACEL) VACCINE 2019-08-10 Completed Uni versity of 00:00:00 [facility] TDAP 2019-08-10 Completed [facility] of 00:00:00 [facility] Pneumococcal 2019-08-10 Completed [facility] o f Polysaccharide, 00:00:00 [place] [facility] PPSV23 (PNEUMOVAX) Branch TDAP (ADACEL) VACCINE 2019-08-10 Completed Uni versity of 00:00:00 [facility] TDAP 2019-08-10 Completed [facility] of 00:00:00 [facility] Pneumococcal 2019-08-10 Completed [facility] o f Polysaccharide, 00:00:00 [place] [facility] PPSV23 (PNEUMOVAX) Branch TDAP (ADACEL) VACCINE 2019-08-10 Completed Uni versity of 00:00:00 [facility] TDAP 2019-08-10 Completed [facility] of 00:00:00 [facility] Pneumococcal 2019-08-10 Completed [facility] o f Polysaccharide, 00:00:00 [place] [facility] PPSV23 (PNEUMOVAX) Branch TDAP (ADACEL) VACCINE 2019-08-10 Completed Uni versity of 00:00:00 [facility] TDAP 2019-08-10 Completed [facility] of 00:00:00 [facility] Pneumococcal 2019-08-10 Completed [facility] o f Polysaccharide, 00:00:00 [place] [facility] PPSV23 (PNEUMOVAX) Branch TDAP (ADACEL) VACCINE 2019-08-10 Completed Uni versity of 00:00:00 [facility] TDAP 2019-08-10 Completed [facility] of 00:00:00 [facility] Pneumococcal 2019-08-10 Completed [facility] o f Polysaccharide, 00:00:00 [place] [facility] PPSV23 (PNEUMOVAX) Branch TDAP (ADACEL) VACCINE 2019-08-10 Completed [facility] vers[facility] 00:00:00 [facility] TDAP 2019-08-10 Completed [facility] 00:00:00 [facility] Pneumococcal 2019-08-10 Completed [facility] o f Polysaccharide, 00:00:00 [place] [facility] PPSV23 (PNEUMOVAX) Branch TDAP (ADACEL) VACCINE 2019-08-10 Completed [facility] vers[facility] of 00:00:00 [facility] TDAP 2019-08-10 Completed [facility] of 00:00:00 [facility] Pneumococcal 2019-08-10 Completed [facility] o f Polysaccharide, 00:00:00 [place] [facility] PPSV23 (PNEUMOVAX) Branch TDAP (ADACEL) VACCINE 2019-08-10 Completed Uni versity of 00:00:00 [facility] TDAP 2019-08-10 Completed [facility] 00:00:00 [facility] Pneumococcal 2019-08-10 Completed [facility] o f Polysaccharide, 00:00:00 [place] [facility] PPSV23 (PNEUMOVAX) Branch TDAP (ADACEL) VACCINE 2019-08-10 Completed Uni versity of 00:00:00 [facility] TDAP 2019-08-10 Completed [facility] 00:00:00 [facility] Pneumococcal 2019-08-10 Completed [facility] o f Polysaccharide, 00:00:00 [place] [facility] PPSV23 (PNEUMOVAX) Branch TDAP (ADACEL) VACCINE 2019-08-10 Completed Uni versity of 00:00:00 [facility] TDAP 2019-08-10 Completed [facility] of 00:00:00 [facility] Pneumococcal 2019-08-10 Completed [facility] o f Polysaccharide, 00:00:00 [place] [facility] PPSV23 (PNEUMOVAX) Branch TDAP (ADACEL) VACCINE 2019-08-10 Completed Uni versity of 00:00:00 [facility] TDAP 2019-08-10 Completed [facility] of 00:00:00 [facility] Pneumococcal 2019-08-10 Completed [facility] o f Polysaccharide, 00:00:00 [place] [facility] PPSV23 (PNEUMOVAX) Branch TDAP (ADACEL) VACCINE 2019-08-10 Completed Uni versity of 00:00:00 [facility] TDAP 2019-08-10 Completed [facility] of 00:00:00 [facility] Pneumococcal 2019-08-10 Completed [facility] o f Polysaccharide, 00:00:00 [place] [facility] PPSV23 (PNEUMOVAX) Branch TDAP (ADACEL) VACCINE 2019-08-10 Completed Uni versity of 00:00:00 [facility] TDAP 2019-08-10 Completed [facility] of 00:00:00 [facility] Pneumococcal 2019-08-10 Completed [facility] o f Polysaccharide, 00:00:00 [place] [facility] PPSV23 (PNEUMOVAX) Branch TDAP (ADACEL) VACCINE 2019-08-10 Completed Uni versity of 00:00:00 [facility] TDAP 2019-08-10 Completed [facility] 00:00:00 [facility] Pneumococcal 2019-08-10 Completed [facility] o f Polysaccharide, 00:00:00 [place] [facility] PPSV23 (PNEUMOVAX) Branch TDAP (ADACEL) VACCINE 2019-08-10 Completed Uni versity of 00:00:00 [facility] TDAP 2019-08-10 Completed [facility] of 00:00:00 [facility] Pneumococcal 2019-08-10 Completed [facility] o f Polysaccharide, 00:00:00 [place] [facility] PPSV23 (PNEUMOVAX) Branch TDAP (ADACEL) VACCINE 2019-08-10 Completed Uni versity of 00:00:00 [facility] TDAP 2019-08-10 Completed [facility] of 00:00:00 [facility] Pneumococcal 2019-08-10 Completed [facility] o f Polysaccharide, 00:00:00 [place] [facility] PPSV23 (PNEUMOVAX) Branch TDAP (ADACEL) VACCINE 2019-08-10 Completed Uni versity of 00:00:00 [facility] TDAP 2019-08-10 Completed [facility] of 00:00:00 [facility] Pneumococcal 2019-08-10 Completed [facility] o f Polysaccharide, 00:00:00 [place] [facility] PPSV23 (PNEUMOVAX) Branch TDAP (ADACEL) VACCINE 2019-08-10 Completed Uni versity of 00:00:00 [facility] TDAP 2019-08-10 Completed [facility] of 00:00:00 [facility] Pneumococcal 2019-08-10 Completed [facility] o f Polysaccharide, 00:00:00 [place] [facility] PPSV23 (PNEUMOVAX) Branch TDAP (ADACEL) VACCINE 2019-08-10 Completed Uni versity of 00:00:00 [facility] TDAP 2019-08-10 Completed [facility] of 00:00:00 [facility] Pneumococcal 2019-08-10 Completed [facility] o f Polysaccharide, 00:00:00 [place] [facility] PPSV23 (PNEUMOVAX) Branch TDAP (ADACEL) VACCINE 2019-08-10 Completed Uni versity of 00:00:00 [facility] TDAP 2019-08-10 Completed [facility] of 00:00:00 [facility] Pneumococcal 2019-08-10 Completed [facility] o f Polysaccharide, 00:00:00 [place] [facility] PPSV23 (PNEUMOVAX) Branch TDAP (ADACEL) VACCINE 2019-08-10 Completed Uni versity of 00:00:00 [facility] TDAP 2019-08-10 Completed [facility] of 00:00:00 [facility] Pneumococcal 2019-08-10 Completed [facility] o f Polysaccharide, 00:00:00 [place] [facility] PPSV23 (PNEUMOVAX) Branch TDAP (ADACEL) VACCINE 2019-08-10 Completed Uni versity of 00:00:00 [facility] TDAP 2019-08-10 Completed [facility] of 00:00:00 [facility] Pneumococcal 2019-08-10 Completed [facility] o f Polysaccharide, 00:00:00 [place] [facility] PPSV23 (PNEUMOVAX) Branch TDAP (ADACEL) VACCINE 2019-08-10 Completed Uni versity of 00:00:00 [facility] TDAP 2019-08-10 Completed [facility] of 00:00:00 [facility] Pneumococcal 2019-08-10 Completed [facility] o f Polysaccharide, 00:00:00 [place] [facility] PPSV23 (PNEUMOVAX) Branch TDAP (ADACEL) VACCINE 2019-08-10 Completed Uni versity of 00:00:00 [facility] TDAP 2019-08-10 Completed [facility] of 00:00:00 [facility] Pneumococcal 2019-08-10 Completed [facility] o f Polysaccharide, 00:00:00 [place] [facility] PPSV23 (PNEUMOVAX) Branch TDAP (ADACEL) VACCINE 2019-08-10 Completed Uni versity of 00:00:00 [facility] TDAP 2019-08-10 Completed [facility] of 00:00:00 [facility] Pneumococcal 2019-08-10 Completed University o f Polysaccharide, 00:00:00 [place] [facility] PPSV23 (PNEUMOVAX) Branch TDAP (ADACEL) VACCINE 2019-08-10 Completed Uni versity of 00:00:00 [facility] TDAP 2019-08-10 Completed [facility] of 00:00:00 [facility] Pneumococcal 2019-08-10 Completed University o f Polysaccharide, 00:00:00 [place] [facility] PPSV23 (PNEUMOVAX) Branch TDAP (ADACEL) VACCINE 2019-08-10 Completed Uni versity of 00:00:00 [facility] TDAP 2019-08-10 Completed [facility] of 00:00:00 [facility] Pneumococcal 2019-08-10 Completed [facility] o f Polysaccharide, 00:00:00 [place] [facility] PPSV23 (PNEUMOVAX) Branch TDAP (ADACEL) VACCINE 2019-08-10 Completed Uni versity of 00:00:00 [facility] TDAP 2019-08-10 Completed [facility] of 00:00:00 [facility] Pneumococcal 2019-08-10 Completed [facility] o f Polysaccharide, 00:00:00 [place] [facility] PPSV23 (PNEUMOVAX) Branch TDAP (ADACEL) VACCINE 2019-08-10 Completed Uni versity of 00:00:00 [facility] TDAP 2019-08-10 Completed [facility] of 00:00:00 [facility] Pneumococcal 2019-08-10 Completed [facility] o f Polysaccharide, 00:00:00 [place] [facility] PPSV23 (PNEUMOVAX) Branch TDAP (ADACEL) VACCINE 2019-08-10 Completed Uni versity of 00:00:00 [facility] TDAP 2019-08-10 Completed [facility] of 00:00:00 [facility] Pneumococcal 2019-08-10 Completed University o f Polysaccharide, 00:00:00 [place] [facility] PPSV23 (PNEUMOVAX) Branch TDAP (ADACEL) VACCINE 2019-08-10 Completed Uni versity of 00:00:00 [facility] TDAP 2019-08-10 Completed [facility] of 00:00:00 [facility] Pneumococcal 2019-08-10 Completed University o f Polysaccharide, 00:00:00 [place] [facility] PPSV23 (PNEUMOVAX) Branch TDAP (ADACEL) VACCINE 2019-08-10 Completed Uni versity of 00:00:00 [facility] TDAP 2019-08-10 Completed [facility] of 00:00:00 [facility] Pneumococcal 2019-08-10 Completed University o f Polysaccharide, 00:00:00 [place] [facility] PPSV23 (PNEUMOVAX) Branch TDAP (ADACEL) VACCINE 2019-08-10 Completed Uni versity of 00:00:00 [facility] TDAP 2019-08-10 Completed [facility] of 00:00:00 [facility] Pneumococcal 2019-08-10 Completed [facility] o f Polysaccharide, 00:00:00 [place] [facility] PPSV23 (PNEUMOVAX) Branch TDAP (ADACEL) VACCINE 2019-08-10 Completed Uni versity of 00:00:00 [facility] TDAP 2019-08-10 Completed [facility] of 00:00:00 [facility] Pneumococcal 2019-08-10 Completed [facility] o f Polysaccharide, 00:00:00 [place] [facility] PPSV23 (PNEUMOVAX) Branch TDAP (ADACEL) VACCINE 2019-08-10 Completed Uni versity of 00:00:00 [facility] TDAP 2019-08-10 Completed [facility] of 00:00:00 [facility] Pneumococcal 2019-08-10 Completed [facility] o f Polysaccharide, 00:00:00 [place] [facility] PPSV23 (PNEUMOVAX) Branch TDAP (ADACEL) VACCINE 2019-08-10 Completed Uni versity of 00:00:00 [facility] TDAP 2019-08-10 Completed [facility] of 00:00:00 [facility] Pneumococcal 2019-08-10 Completed University o f Polysaccharide, 00:00:00 [place] [facility] PPSV23 (PNEUMOVAX) Branch TDAP (ADACEL) VACCINE 2019-08-10 Completed Uni versity of 00:00:00 [facility] TDAP 2019-08-10 Completed [facility] of 00:00:00 [facility] Pneumococcal 2019-08-10 Completed University o f Polysaccharide, 00:00:00 [place] [facility] PPSV23 (PNEUMOVAX) Branch TDAP (ADACEL) VACCINE 2019-08-10 Completed Uni versity of 00:00:00 [facility] TDAP 2019-08-10 Completed [facility] of 00:00:00 [facility] Pneumococcal 2019-08-10 Completed University o f Polysaccharide, 00:00:00 [facility] ical PPSV23 (PNEUMOVAX) Branch TDAP (ADACEL) VACCINE 2019-08-10 Completed Uni versity of 00:00:00 [facility] TDAP 2019-08-10 Completed [facility] of 00:00:00 [facility] Influenza Virus 2019-07-04 Completed Universit y of Vaccine 00:00:00 [facility] Influenza Virus 2019-07-04 Completed Universit y of Vaccine Recomb Quad 00:00:00 [place] [facility], Preserv and ABX Branc h Free 18-64 YRS Influenza Virus 2019-07-04 Completed Universit y of Vaccine 00:00:00 [facility] Influenza Virus 2019-07-04 Completed Universit y of Vaccine Recomb Quad 00:00:00 [place] [facility], Preserv and ABX Branc h Free 18-64 YRS Influenza Virus 2019-07-04 Completed Universit y of Vaccine 00:00:00 [facility] Influenza Virus 2019-07-04 Completed Universit y of Vaccine Recomb Quad 00:00:00 [facility], Preserv and ABX Branc h Free 18-64 YRS Influenza Virus 2019-07-04 Completed Universit y of Vaccine 00:00:00 [facility] Influenza Virus 2019-07-04 Completed Universit y of Vaccine Recomb Quad 00:00:00 [place] [facility], Preserv and ABX Branc h Free 18-64 YRS Influenza Virus 2019-07-04 Completed Universit y of Vaccine 00:00:00 [facility] Influenza Virus 2019-07-04 Completed Universit y of Vaccine Recomb Quad 00:00:00 [facility], Preserv and ABX Branc h Free 18-64 YRS Influenza Virus 2019-07-04 Completed Universit y of Vaccine 00:00:00 [facility] Influenza Virus 2019-07-04 Completed Universit y of Vaccine Recomb Quad 00:00:00 [place] [facility], Preserv and ABX Branc h Free 18-64 YRS Influenza Virus 2019-07-04 Completed Universit y of Vaccine 00:00:00 [facility] Influenza Virus 2019-07-04 Completed Universit y of Vaccine Recomb Quad 00:00:00 [place] [facility], Preserv and ABX Branc h Free 18-64 YRS Influenza Virus 2019-07-04 Completed Universit y of Vaccine 00:00:00 [facility] Influenza Virus 2019-07-04 Completed Universit y of Vaccine Recomb Quad 00:00:00 [place] [facility], Preserv and ABX Branc h Free 18-64 YRS Influenza Virus 2019-07-04 Completed Universit y of Vaccine 00:00:00 [facility] Influenza Virus 2019-07-04 Completed Universit y of Vaccine Recomb Quad 00:00:00 [place] [facility], Preserv and ABX Branc h Free 18-64 YRS Influenza Virus 2019-07-04 Completed Universit y of Vaccine 00:00:00 [facility] Influenza Virus 2019-07-04 Completed Universit y of Vaccine Recomb Quad 00:00:00 [facility], Preserv and ABX Branc h Free 18-64 YRS Influenza Virus 2019-07-04 Completed Universit y of Vaccine 00:00:00 [facility] Influenza Virus 2019-07-04 Completed Universit y of Vaccine Recomb Quad 00:00:00 [place] [facility], Preserv and ABX Branc h Free 18-64 YRS Influenza Virus 2019-07-04 Completed Universit y of Vaccine 00:00:00 [facility] Influenza Virus 2019-07-04 Completed Universit y of Vaccine Recomb Quad 00:00:00 [facility], Preserv and ABX Branc h Free 18-64 YRS Influenza Virus 2019-07-04 Completed Universit y of Vaccine 00:00:00 [facility] Influenza Virus 2019-07-04 Completed Universit y of Vaccine Recomb Quad 00:00:00 [place] [facility], Preserv and ABX Branc h Free 18-64 YRS Influenza Virus 2019-07-04 Completed Universit y of Vaccine 00:00:00 [facility] Influenza Virus 2019-07-04 Completed Universit y of Vaccine Recomb Quad 00:00:00 [facility], Preserv and ABX Branc h Free 18-64 YRS Influenza Virus 2019-07-04 Completed Universit y of Vaccine 00:00:00 [facility] Influenza Virus 2019-07-04 Completed [facility]it y of Vaccine Recomb Quad 00:00:00 [place] [facility], Preserv and ABX Branc h Free 18-64 YRS Influenza Virus 2019-07-04 Completed Universit y of Vaccine 00:00:00 [facility] Influenza Virus 2019-07-04 Completed Universit y of Vaccine Recomb Quad 00:00:00 [place] [facility], Preserv and ABX Branc h Free 18-64 YRS Influenza Virus 2019-07-04 Completed Universit y of Vaccine 00:00:00 [facility] Influenza Virus 2019-07-04 Completed Universit y of Vaccine Recomb Quad 00:00:00 [facility], Preserv and ABX Branc h Free 18-64 YRS Influenza Virus 2019-07-04 Completed Universit y of Vaccine 00:00:00 [facility] Influenza Virus 2019-07-04 Completed [facility]it y of Vaccine Recomb Quad 00:00:00 [facility], Preserv and ABX Branc h Free 18-64 YRS Influenza Virus 2019-07-04 Completed Universit y of Vaccine 00:00:00 [facility] Influenza Virus 2019-07-04 Completed [facility]it y of Vaccine Recomb Quad 00:00:00 [facility], Preserv and ABX Branc h Free 18-64 YRS Influenza Virus 2019-07-04 Completed Universit y of Vaccine 00:00:00 [facility] Influenza Virus 2019-07-04 Completed Universit y of Vaccine Recomb Quad 00:00:00 [facility], Preserv and ABX Branc h Free 18-64 YRS Influenza Virus 2019-07-04 Completed Universit y of Vaccine 00:00:00 [facility] Influenza Virus 2019-07-04 Completed Universit y of Vaccine Recomb Quad 00:00:00 [facility], Preserv and ABX Branc h Free 18-64 YRS Influenza Virus 2019-07-04 Completed Universit y of Vaccine 00:00:00 [facility] Influenza Virus 2019-07-04 Completed [facility]it y of Vaccine Recomb Quad 00:00:00 [place] [facility], Preserv and ABX Branc h Free 18-64 YRS Influenza Virus 2019-07-04 Completed Universit y of Vaccine 00:00:00 [facility] Influenza Virus 2019-07-04 Completed [facility]it y of Vaccine Recomb Quad 00:00:00 [facility], Preserv and ABX Branc h Free 18-64 YRS Influenza Virus 2019-07-04 Completed Universit y of Vaccine 00:00:00 [facility] Influenza Virus 2019-07-04 Completed Universit y of Vaccine Recomb Quad 00:00:00 [facility], Preserv and ABX Branc h Free 18-64 YRS Influenza Virus 2019-07-04 Completed Universit y of Vaccine 00:00:00 [facility] Influenza Virus 2019-07-04 Completed Universit y of Vaccine Recomb Quad 00:00:00 [facility], Preserv and ABX Branc h Free 18-64 YRS Influenza Virus 2019-07-04 Completed Universit y of Vaccine 00:00:00 [facility] Influenza Virus 2019-07-04 Completed [facility]it y of Vaccine Recomb Quad 00:00:00 [facility], Preserv and ABX Branc h Free 18-64 YRS Influenza Virus 2019-07-04 Completed Universit y of Vaccine 00:00:00 [facility] Influenza Virus 2019-07-04 Completed [facility]it y of Vaccine Recomb Quad 00:00:00 [facility], Preserv and ABX Branc h Free 18-64 YRS Influenza Virus 2019-07-04 Completed Universit y of Vaccine 00:00:00 [facility] Influenza Virus 2019-07-04 Completed [facility]it y of Vaccine Recomb Quad 00:00:00 [facility], Preserv and ABX Branc h Free 18-64 YRS Influenza Virus 2019-07-04 Completed [facility]it y of Vaccine 00:00:00 [facility] Influenza Virus 2019-07-04 Completed [facility]it y of Vaccine Recomb Quad 00:00:00 [facility], Preserv and ABX Branc h Free 18-64 YRS Influenza Virus 2019-07-04 Completed [facility]it y of Vaccine 00:00:00 [facility] Influenza Virus 2019-07-04 Completed [facility]it y of Vaccine Recomb Quad 00:00:00 [facility], Preserv and ABX Branc h Free 18-64 YRS Influenza Virus 2019-07-04 Completed [facility]it y of Vaccine 00:00:00 [facility] Influenza Virus 2019-07-04 Completed [facility]it y of Vaccine Recomb Quad 00:00:00 [facility], Preserv and ABX Branc h Free 18-64 YRS Influenza Virus 2019-07-04 Completed Universit y of Vaccine 00:00:00 [facility] Influenza Virus 2019-07-04 Completed [facility]it y of Vaccine Recomb Quad 00:00:00 [facility], Preserv and ABX Branc h Free 18-64 YRS Influenza Virus 2019-07-04 Completed Universit y of Vaccine 00:00:00 [facility] Influenza Virus 2019-07-04 Completed [facility]it y of Vaccine Recomb Quad 00:00:00 [facility], Preserv and ABX Branc h Free 18-64 YRS Influenza Virus 2019-07-04 Completed Universit y of Vaccine 00:00:00 [facility] Influenza Virus 2019-07-04 Completed [facility]it y of Vaccine Recomb Quad 00:00:00 [facility], Preserv and ABX Branc h Free 18-64 YRS Influenza Virus 2019-07-04 Completed [facility]it y of Vaccine 00:00:00 [facility] Influenza Virus 2019-07-04 Completed [facility]it y of Vaccine Recomb Quad 00:00:00 [facility], Preserv and ABX Branc h Free 18-64 YRS Influenza Virus 2019-07-04 Completed Universit y of Vaccine 00:00:00 [facility] Influenza Virus 2019-07-04 Completed [facility]it y of Vaccine Recomb Quad 00:00:00 [facility], Preserv and ABX Branc h Free 18-64 YRS Influenza Virus 2019-07-04 Completed [facility]it y of Vaccine 00:00:00 [facility] Influenza Virus 2019-07-04 Completed [facility]it y of Vaccine Recomb Quad 00:00:00 [facility], Preserv and ABX Branc h Free 18-64 YRS Influenza Virus 2019-07-04 Completed [facility]it y of Vaccine 00:00:00 [facility] Influenza Virus 2019-07-04 Completed [facility]it y of Vaccine Recomb Quad 00:00:00 [facility], Preserv and ABX Branc h Free 18-64 YRS Influenza Virus 2019-07-04 Completed [facility]it y of Vaccine 00:00:00 [facility] Influenza Virus 2019-07-04 Completed [facility] y of Vaccine Recomb Quad 00:00:00 [facility], Preserv and ABX Branc h Free 18-64 YRS Influenza Virus 2019-07-04 Completed [facility]it y of Vaccine 00:00:00 [facility] Influenza Virus 2019-07-04 Completed [facility]it y of Vaccine Recomb Quad 00:00:00 [facility], Preserv and ABX Branc h Free 18-64 YRS Influenza Virus 2019-07-04 Completed [facility]it y of Vaccine 00:00:00 [facility] Influenza Virus 2019-07-04 Completed [facility] y of Vaccine Recomb Quad 00:00:00 [facility], Preserv and ABX Branc h Free 18-64 YRS Influenza Virus 2019-07-04 Completed [facility]it y of Vaccine 00:00:00 [facility] Influenza Virus 2019-07-04 Completed [facility] y of Vaccine Recomb Quad 00:00:00 [facility], Preserv and ABX Branc h Free 18-64 YRS Influenza Virus 2019-07-04 Completed [facility]it y of Vaccine 00:00:00 [facility] Influenza Virus 2019-07-04 Completed [facility] y of Vaccine Recomb Quad 00:00:00 [facility], Preserv and ABX Branc h Free 18-64 YRS Influenza Virus 2019-07-04 Completed [facility]it y of Vaccine 00:00:00 [facility] Influenza Virus 2019-07-04 Completed [facility] y of Vaccine Recomb Quad 00:00:00 [facility], Preserv and ABX Branc h Free 18-64 YRS Influenza Virus 2019-07-04 Completed [facility]it y of Vaccine 00:00:00 [facility] Influenza Virus 2019-07-04 Completed [facility] y of Vaccine Recomb Quad 00:00:00 [facility], Preserv and ABX Branc h Free 18-64 YRS Influenza Virus 2019-07-04 Completed [facility] y of Vaccine 00:00:00 [facility] Influenza Virus 2019-07-04 Completed [facility] y of Vaccine Recomb Quad 00:00:00 [facility], Preserv and ABX Branc h Free 18-64 YRS Influenza Virus 2019-07-04 Completed [facility] y of Vaccine 00:00:00 [facility] Influenza Virus 2019-07-04 Completed [facility] y of Vaccine Recomb Quad 00:00:00 [facility], Preserv and ABX Branc h Free 18-64 YRS Influenza Virus 2019-07-04 Completed [facility] y of Vaccine 00:00:00 [facility] Influenza Virus 2019-07-04 Completed [facility] y of Vaccine Recomb Quad 00:00:00 [facility], Preserv and ABX Branc h Free 18-64 YRS Influenza Virus 2019-07-04 Completed [facility] y of Vaccine 00:00:00 [facility] Influenza Virus 2019-07-04 Completed [facility] y of Vaccine Recomb Quad 00:00:00 [facility], Preserv and ABX Branc h Free 18-64 YRS Influenza Virus 2019-07-04 Completed [facility] y of Vaccine 00:00:00 [facility] Influenza Virus 2019-07-04 Completed [facility] y of Vaccine Recomb Quad 00:00:00 [facility], Preserv and ABX Branc h Free 18-64 YRS Influenza Virus 2019-07-04 Completed [facility]it y of Vaccine 00:00:00 [facility] Influenza Virus 2019-07-04 Completed [facility] Vaccine Recomb Quad 00:00:00 [facility], Preserv and ABX Branc h Free 18-64 YRS Influenza Virus 2019-07-04 Completed [facility] Vaccine 00:00:00 [facility] Influenza Virus 2019-07-04 Completed [facility] of Vaccine Recomb Quad 00:00:00 [facility], Preserv and ABX Branc h Free 18-64 YRS Influenza Virus 2019-07-04 Completed [facility] of Vaccine 00:00:00 [facility] Influenza Virus 2019-07-04 Completed [facility] of Vaccine Recomb Quad 00:00:00 [facility], Preserv and ABX Branc h Free 18-64 YRS Influenza Virus 2019-07-04 Completed [facility] of Vaccine 00:00:00 [facility] Influenza Virus 2019-07-04 Completed [facility] of Vaccine Recomb Quad 00:00:00 [facility], Preserv and ABX Branc h Free 18-64 YRS Influenza Virus 2019-07-04 Completed [facility] of Vaccine 00:00:00 [facility] Influenza Virus 2019-07-04 Completed [facility] of Vaccine Recomb Quad 00:00:00 [facility], Preserv and ABX Branc h Free 18-64 YRS Influenza Virus 2018-06-30 Completed [facility] of Vaccine Quad IM 3+ 00:00:00 [facility] Influenza Virus 2018-06-30 Completed [facility] of Vaccine Quad IM 3+ 00:00:00 [facility] Influenza Virus 2018-06-30 Completed [facility] of Vaccine Quad IM 3+ 00:00:00 [facility] Influenza Virus 2018-06-30 Completed [facility] of Vaccine Quad IM 3+ 00:00:00 [facility] Influenza Virus 2018-06-30 Completed [facility] of Vaccine Quad IM 3+ 00:00:00 [facility] Influenza Virus 2018-06-30 Completed [facility] of Vaccine Quad IM 3+ 00:00:00 [facility] Influenza Virus 2018-06-30 Completed [facility] of Vaccine Quad IM 3+ 00:00:00 [facility] Influenza Virus 2018-06-30 Completed [facility] of Vaccine Quad IM 3+ 00:00:00 [facility] Influenza Virus 2018-06-30 Completed [facility] of Vaccine Quad IM 3+ 00:00:00 [facility] Influenza Virus 2018-06-30 Completed [facility] of Vaccine Quad IM 3+ 00:00:00 [facility] Influenza Virus 2018-06-30 Completed [facility] of Vaccine Quad IM 3+ 00:00:00 [facility] Influenza Virus 2018-06-30 Completed [facility] of Vaccine Quad IM 3+ 00:00:00 [facility] Influenza Virus 2018-06-30 Completed [facility] of Vaccine Quad IM 3+ 00:00:00 [facility] Influenza Virus 2018-06-30 Completed [facility] of Vaccine Quad IM 3+ 00:00:00 [facility] Influenza Virus 2018-06-30 Completed [facility] of Vaccine Quad IM 3+ 00:00:00 [facility] Influenza Virus 2018-06-30 Completed [facility] of Vaccine Quad IM 3+ 00:00:00 [facility] Influenza Virus 2018-06-30 Completed [facility] of Vaccine Quad IM 3+ 00:00:00 [facility] Influenza Virus 2018-06-30 Completed [facility] of Vaccine Quad IM 3+ 00:00:00 [facility] Influenza Virus 2018-06-30 Completed [facility] of Vaccine Quad IM 3+ 00:00:00 [facility] Influenza Virus 2018-06-30 Completed [facility] of Vaccine Quad IM 3+ 00:00:00 [facility] Influenza Virus 2018-06-30 Completed [facility] of Vaccine Quad IM 3+ 00:00:00 [facility] Influenza Virus 2018-06-30 Completed [facility] of Vaccine Quad IM 3+ 00:00:00 [facility] Influenza Virus 2018-06-30 Completed [facility] of Vaccine Quad IM 3+ 00:00:00 [facility] Influenza Virus 2018-06-30 Completed [facility] of Vaccine Quad IM 3+ 00:00:00 [facility] Influenza Virus 2018-06-30 Completed [facility] of Vaccine Quad IM 3+ 00:00:00 [facility] Influenza Virus 2018-06-30 Completed [facility] of Vaccine Quad IM 3+ 00:00:00 [facility] Influenza Virus 2018-06-30 Completed [facility] of Vaccine Quad IM 3+ 00:00:00 [facility] Influenza Virus 2018-06-30 Completed [facility] of Vaccine Quad IM 3+ 00:00:00 [facility] Influenza Virus 2018-06-30 Completed [facility] of Vaccine Quad IM 3+ 00:00:00 [facility] Influenza Virus 2018-06-30 Completed [facility] of Vaccine Quad IM 3+ 00:00:00 [facility] Influenza Virus 2018-06-30 Completed [facility] of Vaccine Quad IM 3+ 00:00:00 [facility] Influenza Virus 2018-06-30 Completed [facility] of Vaccine Quad IM 3+ 00:00:00 [facility] Influenza Virus 2018-06-30 Completed [facility] of Vaccine Quad IM 3+ 00:00:00 [facility] Influenza Virus 2018-06-30 Completed [facility] of Vaccine Quad IM 3+ 00:00:00 [facility] Influenza Virus 2018-06-30 Completed [facility] of Vaccine Quad IM 3+ 00:00:00 [facility] Influenza Virus 2018-06-30 Completed [facility] of Vaccine Quad IM 3+ 00:00:00 [facility] Influenza Virus 2018-06-30 Completed [facility] of Vaccine Quad IM 3+ 00:00:00 [facility] Influenza Virus 2018-06-30 Completed [facility] of Vaccine Quad IM 3+ 00:00:00 [facility] Influenza Virus 2018-06-30 Completed [facility] of Vaccine Quad IM 3+ 00:00:00 [facility] Influenza Virus 2018-06-30 Completed [facility] of Vaccine Quad IM 3+ 00:00:00 [facility] Influenza Virus 2018-06-30 Completed [facility] of Vaccine Quad IM 3+ 00:00:00 [facility] Influenza Virus 2018-06-30 Completed [facility] of Vaccine Quad IM 3+ 00:00:00 [facility] Influenza Virus 2018-06-30 Completed [facility] of Vaccine Quad IM 3+ 00:00:00 [facility] Influenza Virus 2018-06-30 Completed [facility] of Vaccine Quad IM 3+ 00:00:00 [facility] Influenza Virus 2018-06-30 Completed [facility] of Vaccine Quad IM 3+ 00:00:00 [facility] Influenza Virus 2018-06-30 Completed [facility] of Vaccine Quad IM 3+ 00:00:00 [facility] Influenza Virus 2018-06-30 Completed [facility] of Vaccine Quad IM 3+ 00:00:00 [facility] Influenza Virus 2018-06-30 Completed [facility] of Vaccine Quad IM 3+ 00:00:00 [facility] Influenza Virus 2018-06-30 Completed [facility] of Vaccine Quad IM 3+ 00:00:00 [facility] Influenza Virus 2018-06-30 Completed [facility] of Vaccine Quad IM 3+ 00:00:00 [facility] Influenza Virus 2018-06-30 Completed [facility] of Vaccine Quad IM 3+ 00:00:00 [facility] Influenza Virus 2018-06-30 Completed [facility] of Vaccine Quad IM 3+ 00:00:00 [facility] Influenza Virus 2018-06-30 Completed [facility] of Vaccine Quad IM 3+ 00:00:00 [facility] Influenza Virus 2018-06-30 Completed [facility] of Vaccine Quad IM 3+ 00:00:00 [facility] Influenza Virus 2018-06-30 Completed [facility] of Vaccine Quad IM 3+ 00:00:00 [facility] Influenza Virus 2017-06-15 Completed [facility] of [...] [facility] Vaccine Quad IM 00:00:00 [facility] Multi-dose 6+ [facility] Influenza Virus 2016-08-05 Completed [facility] Vaccine Quad IM 00:00:00 [facility] Multi-dose 6+ [facility] Pneumococcal 13 2016-03-07 Completed [facility] of Conjugate, PCV13 00:00:00 [facility] dical (Prevnar 13) Branch Meningococcal B, OMV 2016-03-07 Completed Univ ersity of 00:00:00 [facility] Pneumococcal 13 2016-03-07 Completed [facility] y of Conjugate, PCV13 00:00:00 [facility] dical (Prevnar 13) Branch Meningococcal B, OMV 2016-03-07 Completed Univ ersity of 00:00:00 [facility] Pneumococcal 13 2016-03-07 Completed [facility] of Conjugate, PCV13 00:00:00 [facility] dical (Prevnar 13) Branch Meningococcal B, OMV 2016-03-07 Completed Univ ersity of 00:00:00 [facility] Pneumococcal 13 2016-03-07 Completed [facility] of Conjugate, PCV13 00:00:00 [facility] dical (Prevnar 13) Branch Meningococcal B, OMV 2016-03-07 Completed Univ ersity of 00:00:00 [facility] Pneumococcal 13 2016-03-07 Completed [facility] of Conjugate, PCV13 00:00:00 [facility] dical (Prevnar 13) Branch Meningococcal B, OMV 2016-03-07 Completed Univ ersity of 00:00:00 [facility] Pneumococcal 13 2016-03-07 Completed [facility] of Conjugate, PCV13 00:00:00 [facility] (Prevnar 13) Branch Meningococcal B, V 2016-03-07 Completed Univ ersity of 00:00:00 [facility] Pneumococcal 13 2016-03-07 Completed [facility] of Conjugate, PCV13 00:00:00 [facility] (Prevnar 13) Branch Meningococcal B, V 2016-03-07 Completed Univ ersity of 00:00:00 [facility] Pneumococcal 13 2016-03-07 Completed [facility] of Conjugate, PCV13 00:00:00 [facility] (Prevnar 13) Branch Meningococcal B, V 2016-03-07 Completed Univ ersity of 00:00:00 [facility] Pneumococcal 13 2016-03-07 Completed [facility] of Conjugate, PCV13 00:00:00 [facility] (Prevnar 13) Branch Meningococcal B, V 2016-03-07 Completed Univ ersity of 00:00:00 [facility] Pneumococcal 13 2016-03-07 Completed [facility] of Conjugate, PCV13 00:00:00 [facility] (Prevnar 13) Branch Meningococcal B, [facility] 2016-03-07 Completed Univ ersity of 00:00:00 [facility] Pneumococcal 13 2016-03-07 Completed [facility] of Conjugate, PCV13 00:00:00 [facility] (Prevnar 13) Branch Meningococcal B, V 2016-03-07 Completed Univ ersity of 00:00:00 [facility] Pneumococcal 13 2016-03-07 Completed [facility] of Conjugate, PCV13 00:00:00 [facility] (Prevnar 13) Branch Meningococcal B, V 2016-03-07 Completed Univ ersity of 00:00:00 [facility] Pneumococcal 13 2016-03-07 Completed [facility] of Conjugate, PCV13 00:00:00 [facility] (Prevnar 13) Branch Meningococcal B, V 2016-03-07 Completed [facility] ersity of 00:00:00 [facility] Pneumococcal 13 2016-03-07 Completed [facility] of Conjugate, PCV13 00:00:00 [facility] (Prevnar 13) Branch Meningococcal B, [facility] 2016-03-07 Completed Univ ersity of 00:00:00 [facility] Pneumococcal 13 2016-03-07 Completed [facility] of Conjugate, PCV13 00:00:00 [facility] (Prevnar 13) Branch Meningococcal B, [facility] 2016-03-07 Completed Univ ersity of 00:00:00 [facility] Pneumococcal 13 2016-03-07 Completed [facility] of Conjugate, PCV13 00:00:00 [facility] (Prevnar 13) Branch Meningococcal B, V 2016-03-07 Completed [facility] ersity of 00:00:00 [facility] Pneumococcal 13 2016-03-07 Completed [facility] of Conjugate, PCV13 00:00:00 [facility] (Prevnar 13) Branch Meningococcal B, [facility] 2016-03-07 Completed Univ ersity of 00:00:00 [facility] Pneumococcal 13 2016-03-07 Completed [facility] of Conjugate, PCV13 00:00:00 [facility] (Prevnar 13) Branch Meningococcal B, [facility] 2016-03-07 Completed Univ ersity of 00:00:00 [facility] Pneumococcal 13 2016-03-07 Completed [facility] of Conjugate, PCV13 00:00:00 [facility] (Prevnar 13) Branch Meningococcal B, [facility] 2016-03-07 Completed Univ ersity of 00:00:00 [facility] Pneumococcal 13 2016-03-07 Completed [facility] of Conjugate, PCV13 00:00:00 [facility] (Prevnar 13) Branch Meningococcal B, [facility] 2016-03-07 Completed Univ ersity of 00:00:00 [facility] Pneumococcal 13 2016-03-07 Completed [facility] of Conjugate, PCV13 00:00:00 [facility] (Prevnar 13) Branch Meningococcal B, [facility] 2016-03-07 Completed Univ ersity of 00:00:00 [facility] Pneumococcal 13 2016-03-07 Completed [facility] of Conjugate, PCV13 00:00:00 [facility] (Prevnar 13) Branch Meningococcal B, [facility] 2016-03-07 Completed Univ ersity of 00:00:00 [facility] Pneumococcal 13 2016-03-07 Completed [facility] of Conjugate, PCV13 00:00:00 [facility] (Prevnar 13) Branch Meningococcal B, [facility] 2016-03-07 Completed Univ ersity of 00:00:00 [facility] Pneumococcal 13 2016-03-07 Completed [facility] of Conjugate, PCV13 00:00:00 [facility] (Prevnar 13) Branch Meningococcal B, V 2016-03-07 Completed Univ ersity of 00:00:00 [facility] Pneumococcal 13 2016-03-07 Completed [facility] of Conjugate, PCV13 00:00:00 [facility] (Prevnar 13) Branch Meningococcal B, V 2016-03-07 Completed Univ ersity of 00:00:00 [facility] Pneumococcal 13 2016-03-07 Completed [facility] of Conjugate, PCV13 00:00:00 [facility] (Prevnar 13) Branch Meningococcal B, [facility] 2016-03-07 Completed Univ ersity of 00:00:00 [facility] Pneumococcal 13 2016-03-07 Completed [facility] of Conjugate, PCV13 00:00:00 [facility] (Prevnar 13) Branch Meningococcal B, [facility] 2016-03-07 Completed Univ ersity of 00:00:00 [facility] Pneumococcal 13 2016-03-07 Completed [facility] of Conjugate, PCV13 00:00:00 [facility] (Prevnar 13) Branch Meningococcal B, [facility] 2016-03-07 Completed Univ ersity of 00:00:00 [facility] Pneumococcal 13 2016-03-07 Completed [facility] of Conjugate, PCV13 00:00:00 [facility] dical (Prevnar 13) Branch Meningococcal B, [facility] 2016-03-07 Completed Univ ersity of 00:00:00 [facility] Pneumococcal 13 2016-03-07 Completed [facility] of Conjugate, PCV13 00:00:00 [facility] dical (Prevnar 13) Branch Meningococcal B, [facility] 2016-03-07 Completed Univ ersity of 00:00:00 [facility] Pneumococcal 13 2016-03-07 Completed [facility] of Conjugate, PCV13 00:00:00 [facility] (Prevnar 13) Branch Meningococcal B, [facility] 2016-03-07 Completed Univ ersity of 00:00:00 [facility] Pneumococcal 13 2016-03-07 Completed [facility] of Conjugate, PCV13 00:00:00 [facility] (Prevnar 13) Branch Meningococcal B, [facility] 2016-03-07 Completed Univ ersity of 00:00:00 [facility] Pneumococcal 13 2016-03-07 Completed [facility] of Conjugate, PCV13 00:00:00 [facility] (Prevnar 13) Branch Meningococcal B, [facility] 2016-03-07 Completed [facility] ersity of 00:00:00 [facility] Pneumococcal 13 2016-03-07 Completed [facility] of Conjugate, PCV13 00:00:00 [facility] (Prevnar 13) Branch Meningococcal B, [facility] 2016-03-07 Completed Univ ersity of 00:00:00 [facility] Pneumococcal 13 2016-03-07 Completed [facility] of Conjugate, PCV13 00:00:00 [facility] (Prevnar 13) Branch Meningococcal B, [facility] 2016-03-07 Completed Univ ersity of 00:00:00 [facility] Pneumococcal 13 2016-03-07 Completed [facility] of Conjugate, PCV13 00:00:00 [facility] (Prevnar 13) Branch Meningococcal B, [facility] 2016-03-07 Completed Univ ersity of 00:00:00 [facility] Pneumococcal 13 2016-03-07 Completed [facility] of Conjugate, PCV13 00:00:00 [place] [facility] (Prevnar 13) Branch Meningococcal B, [facility] 2016-03-07 Completed Univ ersity of 00:00:00 [facility] Pneumococcal 13 2016-03-07 Completed [facility] of Conjugate, PCV13 00:00:00 [place] [facility] (Prevnar 13) Branch Meningococcal B, [facility] 2016-03-07 Completed Univ ersity of 00:00:00 [facility] Pneumococcal 13 2016-03-07 Completed [facility] of Conjugate, PCV13 00:00:00 [place] [facility] (Prevnar 13) Branch Meningococcal B, [facility] 2016-03-07 Completed Univ ersity of 00:00:00 [facility] Pneumococcal 13 2016-03-07 Completed [facility] of Conjugate, PCV13 00:00:00 [place] [facility] (Prevnar 13) Branch Meningococcal B, [facility] 2016-03-07 Completed [facility] ersity of 00:00:00 [facility] Pneumococcal 13 2016-03-07 Completed [facility] of Conjugate, PCV13 00:00:00 [place] [facility] (Prevnar 13) Branch Meningococcal B, [facility] 2016-03-07 Completed Univ ersity of 00:00:00 [facility] Pneumococcal 13 2016-03-07 Completed [facility] of Conjugate, PCV13 00:00:00 [facility] (Prevnar 13) Branch Meningococcal B, [facility] 2016-03-07 Completed Univ ersity of 00:00:00 [facility] Pneumococcal 13 2016-03-07 Completed [facility] of Conjugate, PCV13 00:00:00 [facility] (Prevnar 13) Branch Meningococcal B, [facility] 2016-03-07 Completed Univ ersity of 00:00:00 [facility] Pneumococcal 13 2016-03-07 Completed [facility] of Conjugate, PCV13 00:00:00 [facility] (Prevnar 13) Branch Meningococcal B, [facility] 2016-03-07 Completed [facility] ersity of 00:00:00 [facility] Pneumococcal 13 2016-03-07 Completed [facility] of Conjugate, PCV13 00:00:00 [facility] (Prevnar 13) Branch Meningococcal B, [facility] 2016-03-07 Completed [facility] ersity of 00:00:00 [facility] Pneumococcal 13 2016-03-07 Completed [facility] of Conjugate, PCV13 00:00:00 [place] [facility] (Prevnar 13) Branch Meningococcal B, [facility] 2016-03-07 Completed Univ ersity of 00:00:00 [facility] Pneumococcal 13 2016-03-07 Completed [facility] of Conjugate, PCV13 00:00:00 [place] [facility] (Prevnar 13) Branch Meningococcal B, [facility] 2016-03-07 Completed [facility] ersity of 00:00:00 [facility] Pneumococcal 13 2016-03-07 Completed [facility] of Conjugate, PCV13 00:00:00 [place] [facility] (Prevnar 13) Branch Meningococcal B, [facility] 2016-03-07 Completed [facility] ersity of 00:00:00 [facility] Pneumococcal 13 2016-03-07 Completed [facility] of Conjugate, PCV13 00:00:00 [place] [facility] (Prevnar 13) Branch Meningococcal B, [facility] 2016-03-07 Completed Univ ersity of 00:00:00 [facility] Pneumococcal 13 2016-03-07 Completed [facility] of Conjugate, PCV13 00:00:00 [place] [facility] (Prevnar 13) Branch Meningococcal B, [facility] 2016-03-07 Completed Univ ersity of 00:00:00 [facility] Pneumococcal 13 2016-03-07 Completed [facility] of Conjugate, PCV13 00:00:00 [place] [facility] (Prevnar 13) Branch Meningococcal B, OMV 2016-03-07 Completed Univ ersity of 00:00:00 [facility] Pneumococcal 13 2016-03-07 Completed [facility] y of Conjugate, PCV13 00:00:00 [place] [facility] (Prevnar 13) Branch Meningococcal B, OMV 2016-03-07 Completed [facility] ersity of 00:00:00 [facility] Pneumococcal 13 2016-03-07 Completed [facility] of Conjugate, PCV13 00:00:00 [place] [facility] (Prevnar 13) Branch Meningococcal B, V 2016-03-07 Completed Univ ersity of 00:00:00 [facility] Pneumococcal 13 2016-03-07 Completed [facility] of Conjugate, PCV13 00:00:00 [place] [facility] (Prevn[facility] 13) [facility] Meningococcal B, V 2016-03-07 Completed [facility] ersity of 00:00:00 [facility] Pneumococcal 13 2016-03-07 Completed [facility] of Conjugate, PCV13 00:00:00 [place] [facility] (Prevnar 13) [facility] Meningococcal B, V 2016-03-07 Completed Univ ersity of 00:00:00 [facility] Heamophilus Influenza 2015-11-13 Completed Uni versity of B 00:00:00 [facility] Heamophilus Influenza 2015-11-13 Completed Uni versity of B 00:00:00 [facility] Heamophilus Influenza 2015-11-13 Completed Uni versity of B 00:00:00 [facility] Heamophilus Influenza 2015-11-13 Completed Uni versity of B 00:00:00 [facility] Heamophilus Influenza 2015-11-13 Completed Uni versity of B 00:00:00 [facility] Heamophilus Influenza 2015-11-13 Completed Uni versity of B 00:00:00 [facility] Heamophilus Influenza 2015-11-13 Completed Uni versity of B 00:00:00 [facility] Heamophilus Influenza 2015-11-13 Completed Uni versity of B 00:00:00 [facility] Heamophilus Influenza 2015-11-13 Completed Uni versity of B 00:00:00 [facility] Heamophilus Influenza 2015-11-13 Completed Uni versity of B 00:00:00 [facility] Heamophilus Influenza 2015-11-13 Completed Uni versity of B 00:00:00 [facility] Heamophilus Influenza 2015-11-13 Completed Uni versity of B 00:00:00 [facility] Heamophilus Influenza 2015-11-13 Completed Uni versity of B 00:00:00 [facility] Heamophilus Influenza 2015-11-13 Completed Uni versity of B 00:00:00 [facility] Heamophilus Influenza 2015-11-13 Completed Uni versity of B 00:00:00 [facility] Heamophilus Influenza 2015-11-13 Completed Uni versity of B 00:00:00 [facility] Heamophilus Influenza 2015-11-13 Completed Uni versity of B 00:00:00 [facility] Heamophilus Influenza 2015-11-13 Completed Uni versity of B 00:00:00 [facility] Heamophilus Influenza 2015-11-13 Completed Uni versity of B 00:00:00 [facility] Heamophilus Influenza 2015-11-13 Completed Uni versity of B 00:00:00 [facility] Heamophilus Influenza 2015-11-13 Completed Uni versity of B 00:00:00 [facility] Heamophilus Influenza 2015-11-13 Completed Uni versity of B 00:00:00 [facility] Heamophilus Influenza 2015-11-13 Completed Uni versity of B 00:00:00 [facility] Heamophilus Influenza 2015-11-13 Completed Uni versity of B 00:00:00 [facility] Heamophilus Influenza 2015-11-13 Completed Uni versity of B 00:00:00 [facility] Heamophilus Influenza 2015-11-13 Completed Uni versity of B 00:00:00 [facility] Heamophilus Influenza 2015-11-13 Completed Uni versity of B 00:00:00 [facility] Heamophilus Influenza 2015-11-13 Completed Uni versity of B 00:00:00 [facility] Heamophilus Influenza 2015-11-13 Completed Uni versity of B 00:00:00 [facility] Heamophilus Influenza 2015-11-13 Completed Uni versity of B 00:00:00 [facility] Heamophilus Influenza 2015-11-13 Completed Uni versity of B 00:00:00 [facility] Heamophilus Influenza 2015-11-13 Completed Uni versity of B 00:00:00 [facility] Heamophilus Influenza 2015-11-13 Completed [facility] vers[facility] of B 00:00:00 [facility] Heamophilus Influenza 2015-11-13 Completed Uni versity of B 00:00:00 [facility] Heamophilus Influenza 2015-11-13 Completed Uni versity of B 00:00:00 [facility] Heamophilus Influenza 2015-11-13 Completed Uni versity of B 00:00:00 [facility] Heamophilus Influenza 2015-11-13 Completed Uni versity of B 00:00:00 [facility] Heamophilus Influenza 2015-11-13 Completed Uni versity of B 00:00:00 [facility] Heamophilus Influenza 2015-11-13 Completed Uni versity of B 00:00:00 [facility] Heamophilus Influenza 2015-11-13 Completed Uni versity of B 00:00:00 [facility] Heamophilus Influenza 2015-11-13 Completed Uni versity of B 00:00:00 [facility] Heamophilus Influenza 2015-11-13 Completed Uni versity of B 00:00:00 [facility] Heamophilus Influenza 2015-11-13 Completed Uni versity of B 00:00:00 [facility] Heamophilus Influenza 2015-11-13 Completed Uni versity of B 00:00:00 [facility] Heamophilus Influenza 2015-11-13 Completed Uni versity of B 00:00:00 [facility] Heamophilus Influenza 2015-11-13 Completed Uni versity of B 00:00:00 [facility] Heamophilus Influenza 2015-11-13 Completed Uni versity of B 00:00:00 [facility] Heamophilus Influenza 2015-11-13 Completed Uni versity of B 00:00:00 [facility] Heamophilus Influenza 2015-11-13 Completed Uni versity of B 00:00:00 [facility] Heamophilus Influenza 2015-11-13 Completed Uni versity of B 00:00:00 [facility] Heamophilus Influenza 2015-11-13 Completed Uni versity of B 00:00:00 [facility] Heamophilus Influenza 2015-11-13 Completed Uni versity of B 00:00:00 [facility] Heamophilus Influenza 2015-11-13 Completed Uni versity of B 00:00:00 [facility] Heamophilus Influenza 2015-11-13 Completed Uni versity of B 00:00:00 [facility] Heamophilus Influenza 2015-11-13 Completed Uni versity of B 00:00:00 [facility] Meningococcal 2015-11-12 Completed University of [...] (MCV4P) TDAP 2015-10-31 Completed University of 00:00:00 [facility] TDAP 2015-10-31 Completed University of 00:00:00 [facility] TDAP 2015-10-31 Completed University of 00:00:00 [facility] TDAP 2015-10-31 Completed University of 00:00:00 [facility] TDAP 2015-10-31 Completed University of 00:00:00 [facility] TDAP 2015-10-31 Completed University of 00:00:00 [facility] TDAP 2015-10-31 Completed University of 00:00:00 [facility] TDAP 2015-10-31 Completed University of 00:00:00 [facility] TDAP 2015-10-31 Completed University of 00:00:00 [facility] TDAP 2015-10-31 Completed University of 00:00:00 [facility] TDAP 2015-10-31 Completed University of 00:00:00 [facility] TDAP 2015-10-31 Completed University of 00:00:00 [facility] TDAP 2015-10-31 Completed University of 00:00:00 [facility] TDAP 2015-10-31 Completed University of 00:00:00 [facility] TDAP 2015-10-31 Completed University of 00:00:00 [facility] TDAP 2015-10-31 Completed University of 00:00:00 [facility] TDAP 2015-10-31 Completed University of 00:00:00 [facility] TDAP 2015-10-31 Completed University of 00:00:00 [facility] TDAP 2015-10-31 Completed University of 00:00:00 [facility] TDAP 2015-10-31 Completed University of 00:00:00 [facility] TDAP 2015-10-31 Completed University of 00:00:00 [facility] TDAP 2015-10-31 Completed University of 00:00:00 [facility] TDAP 2015-10-31 Completed University of 00:00:00 [facility] TDAP 2015-10-31 Completed University of 00:00:00 [facility] TDAP 2015-10-31 Completed University of 00:00:00 [facility] TDAP 2015-10-31 Completed University of 00:00:00 [facility] TDAP 2015-10-31 Completed University of 00:00:00 [facility] TDAP 2015-10-31 Completed University of 00:00:00 [facility] TDAP 2015-10-31 Completed University of 00:00:00 [facility] TDAP 2015-10-31 Completed University of 00:00:00 [facility] TDAP 2015-10-31 Completed University of 00:00:00 [facility] TDAP 2015-10-31 Completed University of 00:00:00 [facility] TDAP 2015-10-31 Completed University of 00:00:00 [facility] TDAP 2015-10-31 Completed University of 00:00:00 [facility] TDAP 2015-10-31 Completed University of 00:00:00 [facility] TDAP 2015-10-31 Completed University of 00:00:00 [facility] TDAP 2015-10-31 Completed University of 00:00:00 [facility] TDAP 2015-10-31 Completed University of 00:00:00 [facility] TDAP 2015-10-31 Completed University of 00:00:00 [facility] TDAP 2015-10-31 Completed University of 00:00:00 [facility] TDAP 2015-10-31 Completed University of 00:00:00 [facility] TDAP 2015-10-31 Completed University of 00:00:00 [facility] TDAP 2015-10-31 Completed University of 00:00:00 [facility] TDAP 2015-10-31 Completed University of 00:00:00 [facility] TDAP 2015-10-31 Completed University of 00:00:00 [facility] TDAP 2015-10-31 Completed University of 00:00:00 [facility] TDAP 2015-10-31 Completed University of 00:00:00 [facility] TDAP 2015-10-31 Completed University of 00:00:00 [facility] TDAP 2015-10-31 Completed University of 00:00:00 [facility] TDAP 2015-10-31 Completed University of 00:00:00 [facility] TDAP 2015-10-31 Completed University of 00:00:00 [facility] TDAP 2015-10-31 Completed University of 00:00:00 [facility] TDAP 2015-10-31 Completed University of 00:00:00 [facility] TDAP 2015-10-31 Completed University of 00:00:00 [facility] TDAP 2015-10-31 Completed University of 00:00:00 [facility] Pneumococcal 2014-04-01 Completed University o [...] 13:03:00 112 mm[Hg] Univer sity of pressure [facility] Diastolic blood 2022-07-27 13:03:00 75 mm[Hg] Unive rsity of pressure [facility] Heart rate 2022-07-27 13:03:00 98 /min [facility] Body temperature 2022-07-27 13:03:00 36.83 Melissa [facility] weight 2022-07-27 13:03:00 102.967 kg [facility] BMI 2022-07-27 13:03:00 41.52 kg/m2 Universi ty of [facility] Oxygen saturation in 2022-07-27 13:03:00 94 /min University of Arterial blood by [facility] Pulse oximetry Branch Systolic blood 2022-06-17 15:45:00 104 mm[Hg] Univer sity of pressure [facility] Diastolic blood 2022-06-17 15:45:00 69 mm[Hg] Unive rsity of pressure [facility] Heart rate 2022-06-17 15:45:00 97 /min [facility] Body height 2022-06-17 15:45:00 157.5 cm [facility] Body weight 2022-06-17 15:45:00 101.878 kg [facility] BMI 2022-06-17 15:45:00 41.08 kg/m2 [facility] Oxygen saturation in 2022-06-17 15:45:00 98 /min University of Arterial blood by [facility] Pulse oximetry Branch Systolic blood 2022-06-15 13:01:00 101 mm[Hg] Univer sity of pressure [facility] Diastolic blood 2022-06-15 13:01:00 68 mm[Hg] Unive rsity of pressure [facility] Heart rate 2022-06-15 13:01:00 74 /min [facility] Body temperature 2022-06-15 13:01:00 36.89 Melissa Univ ersity of [facility] Body weight 2022-06-15 13:01:00 102.967 kg [facility] BMI 2022-06-15 13:01:00 41.52 kg/m2 [facility] Systolic blood 2022-03-27 12:44:00 131 mm[Hg] Univer sity of pressure [facility] Diastolic blood 2022-03-27 12:44:00 83 mm[Hg] Unive rsity of pressure [facility] Heart rate 2022-03-27 12:44:00 102 /min [facility] Body temperature 2022-03-27 12:44:00 37.11 Melissa Univ ersity of [facility] Respiratory rate 2022-03-27 12:44:00 18 /min Univ ersity of [facility] Body height 2022-03-27 12:44:00 157.5 cm [facility] Body weight 2022-03-27 12:44:00 96.616 kg [facility] BMI 2022-03-27 12:44:00 38.96 kg/m2 [facility] Oxygen saturation in 2022-03-27 12:44:00 98 /min University of Arterial blood by [facility] Pulse oximetry Branch Systolic blood 2022-03-02 15:40:00 113 mm[Hg] Univer sity of pressure [facility] Diastolic blood 2022-03-02 15:40:00 72 mm[Hg] Unive rsity of pressure [facility] Heart rate 2022-03-02 15:40:00 82 /min [facility]i [facility] Respiratory rate 2022-03-02 15:40:00 16 /min Univ ersity of [facility] Oxygen saturation in 2022-03-02 15:40:00 97 /min University of Arterial blood by [facility] Pulse oximetry Branch Body temperature 2022-03-02 15:23:00 36.28 Melissa Univ ersity of [facility] Body weight 2022-02-24 17:00:00 100.245 kg [facility] BMI 2022-02-24 17:00:00 40.42 kg/m2 [facility] Systolic blood 2022-03-02 15:25:00 98 mm[Hg] Univer sity of pressure [facility] Diastolic blood 2022-03-02 15:25:00 55 mm[Hg] Unive rsity of pressure [facility] Heart rate 2022-03-02 15:25:00 85 /min [facility] Respiratory rate 2022-03-02 15:25:00 18 /min Univ ersity of [facility] Oxygen saturation in 2022-03-02 15:25:00 100 /min University of Arterial blood by [facility] Pulse oximetry Branch Body temperature 2022-03-02 15:23:00 36.28 Melissa Univ ersity of [facility] Body weight 2022-02-24 17:00:00 100.245 kg [facility]i [facility] BMI 2022-02-24 17:00:00 40.42 kg/m2 Universi [facility] Procedures Procedure Date / Time Performing Source Performed Clinician SARS-COV-2 COVID-19 CHRISTELLE-SUCROSE 2022-07-27 Tray Jolly Ashton of VACCINE 12 YRS+, BIVALENT 0.3ML, 13:13:29 [facility], (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) Br anch DISABILITY/FMLA 2022-07-01 [facility] 05:01:00 Unassigned, No [facility] MR THORACIC SPINE WO CONTRAST 2022-06-30 Brunilda, Crystal Un iversity of 16:22:01 [facility] MR CERVICAL SPINE WO CONTRAST 2022-06-30 Brunilda, Crystal Un iversity of 16:20:35 [facility] CONSENT/REFUSAL FOR DIAGNOSIS AND 2022-06-30 [facility] 14:32:21 Unassigned, No [facility] CONSENT/REFUSAL FOR DIAGNOSIS AND 2022-06-30 [facility] 14:32:20 Unassigned, No [facility] INSURANCE CORRESPONDENCE 2022-06-17 [facility] of 05:01:00 Unassigned, No [facility] POWER OF VISUAL ASSOCIATE 2022-06-01 [facility] 05:01:00 Unassigned, No [facility] POWER OF VISUAL ASSOCIATE 2022-05-13 [facility] 05:01:00 Unassigned, No [facility] DME/SUPPLY JUSTIFICATION 2022-05-06 [facility] of 05:01:00 Unassigned, No [facility] EMG/NCV 2022-04-08 Brunilda [facility] 14:43:00 [facility] CONSENT/REFUSAL FOR DIAGNOSIS AND 2022-03-27 [facility] 12:40:53 Unassigned, No [facility] PHYSICIAN ORDERS 2022-03-19 [facility] 05:01:00 Unassigned, No [facility] COLONOSCOPY (ENDO) 2022-03-02 Tray Jolly Ashton of 14:43:32 [facility] COLONOSCOPY (ENDO) 2022-03-02 Tray Jolly Ashton of 14:43:32 [facility] COLONOSCOPY 2022-03-02 Cecile Márquez As[place] of 14:02:00 [facility] ESOPHAGOGASTRODUODENOSCOPY 2022-03-02 Willi [facility] ersity of 14:02:00 [facility] EGD (ENDO) 2022-03-02 Rik [facility] of 13:53:24 Edward [facility] EGD (ENDO) 2022-03-02 [facility] of 13:53:24 Edward [facility] POCT GLUCOSE(AGE >30DAYS) 2022-03-02 [facility] ersity of 12:59:00 [facility] POCT GLUCOSE(AGE >30DAYS) 2022-03-02 [facility] ersity of 12:59:00 [facility] POCT GLUCOSE (AUTOMATED) [facility]22[facility]03-[facility] 12:58:00 [facility] POCT GLUCOSE (AUTOMATED) 2022-03-02 [facility] of 12:58:00 [facility] POCT TEST 2022-03-02 [facility] of 12:48:00 [facility] POCT TEST 2022-03-02 [facility] of 12:48:00 [facility] DAY SURGERY - ADC 2022-03-02 [facility] of 05:01:00 Unassigned, No [facility] Name Branch DME/SUPPLY JUSTIFICATION 2022-01-04 [facility] ity of 05:01:00 Unassigned, No [facility] Name Branch DME/SUPPLY JUSTIFICATION 2022-01-04 [facility] ity of 05:01:00 Unassigned, No [facility] Name Branch DISCLOSURE AND CONSENT, MEDICAL 2021-12-28 [facility] of AND SURGICAL PROCEDURES 05:01:00 Unassigned, No [facility] dical Name Branch DISCLOSURE AND CONSENT, MEDICAL 2021-12-28 [facility] AND SURGICAL PROCEDURES 05:01:00 Unassigned, No [facility] dical Name Branch Encounters Start End Encounter Admission Attending Care Care Encounter Source Date/Time Date/Time Type Type Clinicians Facility Department ID 2022-02-16 Outpatient IVETT LOPEZ MARCUS [id number] Univers 10:29:45 CECILE flores [facility] 2021-12-01 Outpatient IVETT LOPEZ MARCUS [id number] Univers 13:05:09 CECILE flores [facility] 2021-11-04 Outpatient YUSEF LOPEZMB MARCUS [id number] Univers 15:43:22 CECILE ity of [facility] 2021-07-[address] [facility] [id number] Univers 19:11:28 ity of [facility] 2021-07-[address] [facility] [id number] Univers 10:12:30 ity of [facility] 2021-07-[address] [facility] [id number] Univers 06:35:13 ity of [facility] 2021-07-[address] [facility] [id number] Univers 04:01:19 ity of [facility] 2021-07-[address] [facility] [id number] Univers 12:06:22 ity of [facility] 2021-07-[address] [facility] [id number] Univers 11:43:46 ity [facility] 2022-08-24 2022-08-24 Outpatient Brock JOLLY [facility] [id number] Univers 09:00:00 09:00:00 TRAY [facility] 2022-08-24 2022-08-24 Outpatient R RIK [facility] [id number] Univers 09:00:00 09:00:00 TRAY [facility] 2022-08-13 2022-08-13 Outpatient Brock HINTON [facility] [id number] Univers 14:00:00 14:00:00 MATEO [facility] 2022-08-06 2022-08-06 Eduarda [facility] 1.2.840.114 [id number] Univers 00:00:00 00:00:00 [facility] 350.1.13.10 it y of [place] 4.2.7.2.686 Emanuel as JOLLY?BLEA [id number] [address] MEDICAL OFFICE BUILDING 2022-07-29 2022-07-29 [facility] 1.2.840.114 [id number] Univers 00:00:00 00:00:00 [facility] HEALTH 350.1.13.10 it y of Edward [place] 4.2.7.2.686 Emanuel as JOLLY?BLEA [id number] [address] MEDICAL OFFICE [facility] 2022-07-27 2022-07-27 Outpatient R RIK [facility] [id number] Univers 08:00:00 08:25:43 TRAY itjay of [facility] 2022-07-27 2022-07-27 Office Rik [facility] 1.2.840.114 [id number] Univers 08:00:00 08:25:43 Visit [facility] 350.1.13.10 it y of [place] [facility] 4.2.7.2.686 Emanuel as JOLLY?BLEA [id number] [address] OFFICE [facility] 2022-07-08 2022-07-08 Refill Rik [facility] 1.2.840.114 [id number] Univers 00:00:00 00:00:00 Tray GREGORIO 350.1.13.10 i ty [facility] [place] [facility] 4.2.7.2.686 [place] [facility] [id number] [facility] [address] 2022-07-07 2022-07-07 Outpatient R BRUNILDA STELLA [facility] [id number] Univers 00:00:00 00:00:00 STELLA WORLEY it y of [facility] 2022-07-01 2022-07-01 Orders Doctor CLAU 1.2.840.114 [id number] Univers 00:00:00 00:00:00 Only Unassigned, GRAYSON 350.1.13.10 ity of [place] [facility] 4.2.7.2.686 Emanuel as [id number] [facility] 009 Branch 2022-06-30 2022-06-30 Outpatient R BRUNILDA STELLA [facility] [id number] Univers 09:34:33 23:59:00 BRUNILDA STELLA it y of [facility] 2022-06-30 2022-06-30 [facility] Stella Worley [facility] 1.2.840.114 [id number] Univers 09:34:33 23:59:00 Encounter GJ 350.1.13.10 [facility]y [facility] 4.2.7.2.[place] RUDY [id number] [facility] 804 Mode 2022-06-30 2022-06-30 [facility] Brunilda Stella [facility] 1.2.840.114 [id number] Univers 09:34:16 23:59:00 Encounter ANGLECHRISTELLE 350.1.13.10 ity of [place] 4.2.7.2.686 [place] RUDY [id number] [facility] 804 Branch 2022-06-30 2022-06-30 Orders Doctor CLAU 1.2.840.114 [id number] Univers 00:00:00 00:00:00 Only Unassigned, GRAYSON 350.1.13.10 ity of [place] [facility] 4.2.7.2.686 Emanuel as [id number] [facility] 009 Branch 2022-06-30 2022-06-30 Telephone Stella Worley [facility] 1.2.840.114 [id number] Univers 00:00:00 00:00:00 HEALTH 350.1.13.10 it y of [place]2.7.2.686 [place] HAPPY JACK [id number] [address] OFFICE BUILDING 2022-06-24 2022-06-24 Outpatient R STELLA WORLEY [facility] [id number] Univers 00:00:00 00:00:00 STELLA WORLEY it y of [facility] 2022-06-24 2022-06-24 Telephone Stella Worley [facility] 1.2.840.114 [id number] Univers 00:00:00 00:00:00 HEALTH 350.1.13.10 it y of [place]2.7.2.[place] HAPPY JACK [id number] [address] OFFICE BUILDING 2022-06-21 2022-06-21 Outpatient R RIK [facility] [id number] Univers 11:00:00 11:00:00 TRAY ity of [facility] 2022-06-21 2022-06-21 Telephone Rik [facility] 1.2.840.114 [id number] Univers 00:00:00 00:00:00 Tray HEALTH 350.1.13.10 it y of [place] 4.2.7.2.686 Emanuel as JOLLY?BLEA [id number] Oh gabi [address] MEDICAL OFFICE BUILDING 2022-06-17 2022-06-17 Office Stelal Worley [facility] 1.2.840.114 [id number] Univers 11:00:00 11:30:00 Visit HEALTH 350.1.13.10 it y of [place] 4.2.7.2.686 [place] mitzy LOPEZ [id number] [address] OFFICE BUILDING 2022-06-17 2022-06-17 Outpatient R STELLA WORLEY [facility] [id number] Univers 11:00:00 11:00:00 STELLA WORLEY it y of [facility] 2022-06-17 2022-06-17 Refill Stella Worley [facility] 1.2.840.114 [id number] Univers 00:00:00 00:00:00 HEALTH 350.1.13.10 it y of [place] 4.2.7.2.686 [place] mit[place] LOPEZ [id number] [address] OFFICE BUILDING 2022-06-17 2022-06-17 Orders Doctor CLAU 1.2.840.114 [id number] Univers 00:00:00 00:00:00 Only Unassigned, GRAYSON 350.1.13.10 ity of [place] [facility] 4.2.7.2.686 Emanuel as [id number] [address] 2022-06-16 2022-06-16 Telephone [facility] 1.2.840.114 [id number] Univers 00:00:00 00:00:00 Tray HEALTH 350.1.13.10 it y of [place] 4.2.7.2.686 Emanuel as JOLLY?BLEA [id number] Oh gabi CHAIREZ [address] [place] [address] OFFICE BUILDING 2022-06-15 2022-06-15 Outpatient R RIK [facility] [id number] Univers 08:00:00 08:25:29 TRAY ity of [facility] 2022-06-15 2022-06-15 [facility] 1.2.840.114 [id number] Univers 08:00:00 08:25:29 Visit [facility] 350.1.13.10 it y of [place] 4.2.7.2.686 Emanuel as JOLLY?BLEA [id number] Oh gabi JACOBS[address] OFFICE BUILDING 2022-06-14 2022-06-14 Telephone [facility] 1.2.840.114 [id number] Univers 00:00:00 00:00:00 Cecile GREGORIO 350.1.13.10 i ty of [place] 4[place]2.7.2.686 [place] PROFESSIO [id number] [address] 2022-06-11 2022-06-11 Telephone [facility] 1.2.840.114 [id number] Univers 00:00:00 00:00:00 Tray HEALTH 350.1.13.10 it y of [place] 4.2.7.2.686 Emanuel as JOLLY?BLEA [id number] [address] OFFICE [facility] 2022-06-09 2022-06-09 Telephone [facility] 1.2.840.114 [id number] Univers 00:00:00 00:00:00 Tray HEALTH 350.1.13.10 it y of [place] 4.2.7.2.686 Emanuel as JOLLY?BLEA [id number] [address] OFFICE [facility] 2022-06-04 2022-06-04 RefStella Hamilton [facility] 1.2.840.114 [id number] Univers 00:00:00 00:00:00 HEALTH 350.1.13.10 it y of [place] 4[place]2.7.2.686 [place] LOPEZ [id number] [address] OFFICE [facility] 2022-06-04 2022-06-04 Telephone Ry Edge [facility] 1.2.840.114 [id number] Univers 00:00:00 00:00:00 HEALTH 350.1.13.10 it y of [place] 4.2.7.2.686 Emanuel as JOLLY?BLEA [id number] [address] OFFICE [facility] 2022-06-04 2022-06-04 Susan [facility] [id number] [id number] Univers 00:00:00 00:00:00 Cecile GREGORIO 350.1.13.10 i ty of [place] 4.2.7.2.686 [place] PROFESS[place] [id number] [address] 2022-06-03 2022-06-03 Outpatient R STELLA WORLEY [facility] [id number] Univers 09:30:00 09:30:00 STELLA WORLEY it y of [facility] 2022-06-02 2022-06-02 Stella Barrow [facility] 1.2.840.114 [id number] Univers 00:00:00 00:00:00 HEALTH 350.1.13.10 it y of [place] 4[place]2.7.2.686 [place] LOPEZ [id number] [address] OFFICE [facility] 2022-06-02 2022-06-02 RefStella Hamilton [facility] 1.2.840.114 [id number] Univers 00:00:00 00:00:00 HEALTH 350.1.13.10 it y of [place] 4[place]2.7.2.686 [place] LOPE[place] [id number] [address] 2022-06-02 2022-06-02 Telephone Willi [facility] 1.2.840.114 [id number] Univers 00:00:00 00:00:00 Cecile GREGORIO 350.1.13.10 i ty of [place] 4.2.7.2.686 [place] PROFESS[place] [id number] Oh dical [address] 2022-06-01 2022-06-01 Orders Doctor CLAU 1.2.840.114 [id number] Univers 00:00:00 00:00:00 Only Unassigned, GRAYSON 350.1.13.10 ity of [place] [facility] 4.2.7.2.686 Emanuel as [id number] [address] 2022-06-01 2022-06-01 Stella Barrow [facility] 1.2.840.114 [id number] Univers 00:00:00 00:00:00 HEALTH 350.1.13.10 it y of [place] [id number] [address] OFFICE [facility] 2022-06-01 2022-06-01 Refill Willi [facility] 1.2.128.171 [id number] Univers 00:00:00 00:00:00 Cecile GREGORIO 350.1.13.10 i ty of [place].7.2.[place] PROF[place] [id number] Oh gabi BARNEY 188 [facility] 2022-05-28 2022-05-28 Reffranchesca Jolly [facility] 1.2.840.114 [id number] Univers 00:00:00 00:00:00 [facility] 350.1.13.10 it y of [place] 4.2.7.2.686 Emanuel as JOLLY?BLEA [phone] Oh gabi CHAIREZ [address]44 [address] MEDICAL OFFICE [facility] 2022-05-26 2022-05-26 RefStella Hamilton [facility] 1.2.840.114 [id number] Univers 00:00:00 00:00:00 HEALTH 350.1.13.10 it y of [place] [id number] [address] 2022-05-18 2022-05-18 Outpatient R SANJAY SÁNCHEZ [facility] [id number] Univers 09:00:00 09:00:00 ity [facility] 2022-05-17 2022-05-17 Outpatient R RIK [facility] [id number] Univers 09:00:00 09:00:00 TRAY y [facility] 2022-05-13 2022-05-13 Orders Doctor CLUA 1.2.840.114 [id number] Univers 00:00:00 00:00:00 Only Unassigned, GRAYSON 350.1.13.10 ity of [place] [facility] 4.2.7.2.686 Emanuel as [id number] [address] 2022-05-13 2022-05-13 [facility] 1.2.840.114 [id number] Univers 00:00:00 00:00:00 [facility] 350.1.13.10 it y of [place] 4.2.7.2.686 Emanuel as JOLLY?BLEA [phone] Oh gabi [address] OFFICE [facility] 2022-05-10 2022-05-10 Outpatient R RIK [facility] [id number] Univers 16:15:00 16:15:00 TRAY ity [facility] 2022-05-10 2022-05-10 Outpatient R STELLA WORLEY [facility] [id number] Univers 00:00:00 00:00:00 STELLA WORLEY it jay of [facility] 2022-05-06 2022-05-06 Telephone Stella Worley [facility] 1.2.840.114 [id number] Univers 00:00:00 00:00:00 HEALTH 350.1.13.10 it y of [place] [id number] [facility] [address] OFFICE BUILDING 2022-05-06 2022-05-06 Orders Doctor CLAU 1.2.840.114 [id number] Univers 00:00:00 00:00:00 Only Unassigned, GRAYSON 350.1.13.10 ity of [place] [facility] 4.2.7.2.686 Emanuel as [id number] [place] [address] [address] 2022-04-29 2022-04-29 Outpatient Brock AGUILAR [facility] [id number] Univers 14:00:00 14:00:00 CLAU ity [facility] 2022-04-14 2022-04-14 Outpatient R VIK OLIVEIRA [facility] [id number] Univers 09:00:00 09:00:00 ity of [facility] 2022-04-12 2022-04-12 Susan [facility] 1.2.840.114 [id number] Univers 00:00:00 00:00:00 Ricardo GREGORIO 350.1.13.10 [facility] 4.2.7.2.686 [place] [facility] [phone] Oh dical NAL [address] BUILDING 2022-04-09 2022-04-09 Outpatient Brock BARR [facility] [id number] Univers 11:00:00 11:00:00 ISAC ity [facility] 2022-04-08 2022-04-08 [facility]ust[facility]ADV[facility] 1.2.840.114 [id number] Univers 08:30:00 23:59:00 [facility] 350.1.13.10 ity of [place].2.[place] HAPPY JACK [id number] [facility] [address] OFFICE BUILDING 2022-04-08 2022-04-08 Outpatient R AGUSTINA [facility] [id number] Univers 08:30:00 23:59:00 KAMAKSHI ity o f [facility] 2022-04-08 2022-04-08 Telephone Stella Worley [facility] 1.2.840.114 [id number] Univers 00:00:00 00:00:00 HEALTH 350.1.13.10 it y of [place] 4.2.7.2.686 [place] HAPPY JACK [id number] [facility] [address] OFFICE BUILDING 2022-04-02 2022-04-02 Outpatient R WIL [facility] [id number] Univers 09:30:00 09:30:00 MATEO flores [facility] 2022-03-31 2022-03-31 Telephone [facility] 1.2.840.114 [id number] Univers 00:00:00 00:00:00 [facility] 350.1.13.10 it y of [place] 4.2.7.2.686 Emanuel as JOLLY?BLEA [phone] Oh samirroshan CHAIREZ 044 [address] MEDICAL OFFICE [facility] 2022-03-27 2022-03-27 Emergency [facility] 1.2.638.810 [id number] [id number] Univers 07:48:00 08:22:00 Destiny BYERSCHRISTELLE 350.1.13.10 i ty of [facility] 4.2.7.2.[place] RUDY [id number] [facility] 084 [address] 2022-03-27 2022-03-27 Emergency X [facility] ERT [id number] Univers 07:48:00 08:22:00 DESTINY phillipsjay [facility] 2022-03-27 2022-03-27 Orders Doctor OLGUIN 1.2.840.114 [id number] Univers 00:00:00 00:00:00 Only Unassigned, GRAYSON 350.1.13.10 ity of [place] [facility] 4.2.7.2.686 Emanuel as [id number] [facility] [address] 2022-03-24 2022-03-24 Telephone [facility] 1.2.840.114 [id number] Univers 00:00:00 00:00:00 [facility] HEALTH 350.1.13.10 it y of [place] 4.2.7.2.686 Emanuel as JOLLY?BLEA [id number] [address] MEDICAL OFFICE BUILDING 2022-03-19 2022-03-19 Orders Doctor CLAU 1.2.840.114 [id number] Univers 00:00:00 00:00:00 Only Unassigned, GRAYSON 350.1.13.10 ity of [place] [facility] 4.2.7.2.686 Emanuel as [id number] [address] 2022-03-19 2022-03-19 Telephone [facility] 1.2.840.114 [id number] Univers 00:00:00 00:00:00 Tray HEALTH 350.1.13.10 it y of [place] 4.2.7.2.686 Emanuel as JOLLY?BLEA [id number] [address] OFFICE [facility] 2022-03-17 2022-03-17 Telephone [facility] 1.2.840.114 [id number] Univers 00:00:00 00:00:00 [facility] HEALTH 350.1.13.10 it y of [place] 4.2.7.2.686 Emanuel as JOLLY?BLEA [id number] [address] OFFICE [facility] 2022-03-12 2022-03-12 Stella Barrow [facility] 1.2.840.114 [id number] Univers 00:00:00 00:00:00 HEALTH 350.1.13.10 it y of [place].2.686 [place] JOHN [phone] [facility] [address] OFFICE BUILDING 2022-03-08 2022-03-08 Telephone [facility] 1.2.840.114 [id number] Univers 00:00:00 00:00:00 Tray HEALTH 350.1.13.10 it y of [place] 4.2.7.2.686 Emanuel as JOLLY?BLEA [phone] [address] OFFICE BUILDING 2022-03-02 2022-03-02 Hospital [facility] 1.2.840.114 [id number] Univers 07:39:00 11:22:00 Encounter Cecile GREGORIO 350.1.13.10 ity of [place].2.7.2.[place] SURGICAL [id number] [facility] [address] 2022-03-02 2022-03-02 Outpatient R [facility] MARCUS [id number] Univers 07:39:00 11:22:00 CECILE ity of [facility] 2022-03-02 2022-03-02 Surgery [facility] 1.2.515.813 [id number] 7779 Univers 09:11:00 10:25:00 Cecile GREGORIO 350.1.13.10 i ty of [place] 4.2.7.2.686 [place] SURGICAL [id number] [facility] [address] 2022-03-02 2022-03-02 Orders Doctor CLAU 1.2.840.114 [id number] Univers 00:00:00 00:00:00 Only Unassigned, GRAYSON 350.1.13.10 ity of [place] [facility] 4.2.7.2.686 Emanuel as [id number] [address] 2022-03-01 2022-03-01 Telephone [facility] 1.2.840.114 [id number] Univers 00:00:00 00:00:00 Cecile GREGORIO 350.1.13.10 i ty of [place].2.7.2.686 [place] 112.6406582 Oh dical NAL 188 [facility] 2022-03-01 2022-03-01 Reffranchesca PollardADVANC[facility] 1.2.840.114 [id number] Univers 00:00:00 00:00:00 Ricardo GREGORIO 350.1.13.10 ity of [place] 4.2.7.2.686 [place] 128.6422795 Oh dical NAL 059 [facility] 2022-02-25 2022-02-25 [facility] [id number] Univers 11:00:00 11:00:00 TRAY ity of [facility] 2022-02-25 2022-02-25 Telephone Stella Worley [facility] 1.2.840.114 [id number] Univers 00:00:00 00:00:00 HEALTH 350.1.13.10 it y of [place] 4.2.7.2.686 [place] mitzy LOPEZ [id number] [place] [address] [address] OFFICE BUILDING 2022-02-24 2022-02-24 Telephone [facility] 1.2.840.114 [id number] Univers 00:00:00 00:00:00 Tray HEALTH 350.1.13.10 it y of [place] 4.2.7.2.686 Emanuel as JOLLY?BLEA [id number] [address] OFFICE [facility] 2022-02-23 2022-02-23 Telephone [facility] 1.2.840.114 [id number] Univers 00:00:00 00:00:00 Tray HEALTH 350.1.13.10 it y of [place] 4.2.7.2.686 Emanuel as JOLLY?BLEA [id number] [address] OFFICE [facility] 2022-02-22 2022-02-22 Reffranchesca PaulaADVANCED [facility] 1.2.840.114 [id number] Univers 00:00:00 00:00:00 Wondiful A HEALTH 350.1.13.10 ity of [place] 4.2.7.2.686 Emanuel as JOLLY?BLEA [id number] [address] OFFICE [facility] 2022-02-18 2022-02-18 Patient [facility] 1.2.840.114 [id number] Univers 00:00:00 00:00:00 Secure Msg Tray HEALTH 350.1.13.10 ity of [place] 4.2.7.2.686 Emanuel as JOLLY?BLEA [id number] [address] OFFICE [facility] 2022-02-18 2022-02-18 Telephone [facility] 1.2.840.114 [id number] Univers 00:00:00 00:00:00 Tray [place] 350.1.13.10 i ty of [place] 4.2.7.2.686 [place] ESS[place] 457.7897975 Oh dical SAVITA 044 [facility] 2022-02-16 2022-02-16 Outpatient R RIK [facility] [id number] Univers 09:15:00 09:30:10 TRAY flores [facility] 2022-02-16 2022-02-16 Office [facility]ADV[facility] 1.2.840.114 [id number] Univers 09:15:00 09:30:10 Visit [facility] 350.1.13.10 it y of [place] [facility] 4.2.7.2.686 Emanuel as JOLLY?BLEA [phone] Oh gabi CHAIREZ [address] [place] [address] OFFICE [facility] 2022-02-16 2022-02-16 Outpatient R RIK [facility] [id number] Univers 09:15:00 09:15:00 TRAY [facility] 2022-02-16 2022-02-16 Telephone Vik Oliveira [facility] 1..840.114 [id number] Univers 00:00:00 00:00:00 [facility] 350.1.13.10 it y of [place].2.[place].2.[place] [id number] [address] OFFICE [facility] 2022-02-15 2022-02-15 Outpatient R FLORENCE [facility] [id number] Univers 15:15:00 15:15:00 CAPRICE phillipsjay [facility] 2022-02-14 2022-02-14 Nurse CLAU Zarate 1.2.492.599 [id number] [id number] Univers 00:00:00 00:00:00 Triage Young GALICIA 350.1.13.10 it y of HOSPITAL 4.2.7.2.686 Emanuel as [id number] [address] 2022-02-12 2022-02-12 Telephone Rik [facility] 1.2.840.114 [id number] Univers 00:00:00 00:00:00 [facility] 350.1.13.10 it y of [place] 4.2.7.2.686 Emanuel as JOLLY?BLEA [phone] Oh gabi CHAIREZ [address] [place] [address] MEDICAL OFFICE BUILDING 2022-02-11 2022-02-11 Telephone Stella Worley [facility] 1.2.840.114 [id number] Univers 00:00:00 00:00:00 HEALTH 350.1.13.10 it y of [place] 4.2.7.2.686 [place] [id number] [address] OFFICE BUILDING 2022-02-11 2022-02-11 Telephone Roxanne Vik Tirso [facility] 1.2.840.114 [id number] Univers 00:00:00 00:00:00 HEALTH 350.1.13.10 it y of [place] 4.2.7.2.686 [place] [id number] [address] OFFICE [facility] 2022-02-10 2022-02-10 Outpatient R NAV ANTONIO [facility] [id number] Univers 00:00:00 00:00:00 ity of [facility] 2022-02-10 2022-02-10 Outpatient NAV GIANG [facility] [id number] Univers 00:00:00 00:00:00 ity of [facility] 2022-02-10 2022-02-10 Orders Doctor CLAU 1..840.114 [id number] Univers 00:00:00 00:00:00 Only Unassigned, GRAYSON 350.1.13.10 ity of [place] [facility] 4.2.7.2.686 Emanuel as [id number] [address] 2022-02-08 2022-02-08 Outpatient R STELLA WORLEY [facility] [id number] Univers 10:00:00 11:34:48 STELLA WORLEY it y of [facility] 2022-02-08 2022-02-08 Office Stella Worley [facility] 1.2.840.114 [id number] Univers 10:00:00 11:34:48 Visit HEALTH 350.1.13.10 it y of [place] 4.2.7.2.686 [place] [id number] [address] OFFICE BUILDING 2022-02-01 2022-02-01 Telephone Momo VAFRANDY 1.2.246.604 [id number] Univers 00:00:00 00:00:00 Isac S HEALTH 350.1.13.10 it y of [place] 4.2.7.2.686 Emanuel as JOLLY?BLEA 156.1446465 Oh gabi CHAIREZ [address] MEDICAL OFFICE BUILDING 2022-01-28 2022-01-28 Orders Doctor CLAU 1.2.840.114 [id number] Univers 00:00:00 00:00:00 Only Unassigned, GRAYSON 350.1.13.10 ity of [place] [facility] 4.2.7.2.686 Emanuel as [id number] [address] 2022-01-27 2022-01-27 [facility]phone [facility] 1.2.840.114 [id number] Univers 00:00:00 00:00:00 Tray HEALTH 350.1.13.10 it y of [place] 4.2.7.2.686 Emanuel as JOLLY?BLEA [id number] Oh gabi JACOBS 044 [facility] OFFICE [facility] 2022-01-27 2022-01-27 Telephone [facility]ADV[facility] 1.2.840.114 [id number] Univers 00:00:00 00:00:00 [facility] 350.1.13.10 it y of [place] 4.2.7.2.686 Emanuel as JOLYL?BLEA [phone] Oh gabi [facility] 044 [facility] OFFICE [facility] 2022-01-27 2022-01-27 Telephone Vik Oliveira [facility] 1.2.840.114 [id number] Univers 00:00:00 00:00:00 HEALTH 350.1.13.10 it y of [place] 4.2.7.2.686 [place] mitzy LOPEZ [id number] [facility] [address] OFFICE BUILDING 2022-01-25 2022-01-25 Outpatient R WIL [facility] [id number] Univers 10:20:49 23:59:00 MATEO itjay of [facility] 2022-01-25 2022-01-25 [facility]ADV[facility] 1.2.840.114 [id number] Univers 10:00:00 23:59:00 Encounter Mateo GREGORIO 350.1.13.10 ity of [place] 4.2.7.2.686 [place] [facility] [id number] [facility] 806 [address] 2022-01-25 2022-01-25 Outpatient R WIL [facility] [id number] Univers 00:00:00 00:00:00 MATEO ity of [facility] 2022-01-25 2022-01-25 Orders Doctor CLAU 1.2.840.114 [id number] Univers 00:00:00 00:00:00 Only Unassigned, GRAYSON 350.1.13.10 ity of [place] [facility] 4.2.7.2.686 Emanuel as [id number] [address] 2022-01-22 2022-01-22 Eduarda JollyADVANCED [facility] 1.2.840.114 [id number] Univers 00:00:00 00:00:00 Tray HEALTH 350.1.13.10 it y of [place] 4.2.7.2.686 Emanuel as JOLLY?BLEA [id number] [address] MEDICAL OFFICE [facility] 2022-01-22 2022-01-22 Orders Doctor CLAU 1.2.840.114 [id number] Univers 00:00:00 00:00:00 Only Unassigned, GRAYSON 350.1.13.10 ity of [place] [facility] 4.2.7.2.686 Emanuel as [id number] [address] 2022-01-21 2022-01-21 Reffranchesca PaulaADVANCED [facility] 1.2.840.114 [id number] Univers 00:00:00 00:00:00 Wondiful A HEALTH 350.1.13.10 ity of [place] 4.2.7.2.686 Emanuel as JOLLY?BLEA [id number] [address] OFFICE [facility] 2022-01-20 2022-01-20 Susan PaulaADVANCED [facility] 1.2.840.114 [id number] Univers 00:00:00 00:00:00 Wondiful A HEALTH 350.1.13.10 ity of [place] 4.2.7.2.686 Emanuel as JOLLY?BLEA [id number] [address] MEDICAL OFFICE [facility] 2022-01-192022-01-19 Telephone [facility] 1.2.840.114 [id number] Univers 00:00:00 00:00:00 Tray HEALTH 350.1.13.10 it y of [place] 4.2.7.2.686 Emanuel as JOLLY?BLEA [phone] Oh dicroshan CHAIREZ 044 [facility] 2022-01-18 2022-01-18 Refill [facility] 1.2.840.114 [id number] Univers 00:00:00 00:00:00 Tray HEALTH 350.1.13.10 it y of [place] 4.2.7.2.686 Emanuel as JOLLY?BLEA [phone] Oh dicroshan CHAIREZ 044 [facility] 2022-01-13 2022-01-13 Telephone [facility] 1.2.840.114 [id number] Univers 00:00:00 00:00:[address] [facility] 350.1.13.10 i ty [facility] 4.2.7.2.686 [place] PROFESS[place] 204.0870215 Oh dicroshan BARNEY 204 [facility] 2022-01-11 2022-01-11 Outpatient [facility] [id number] Univers 14:45:00 23:59:00 [facility] 2022-01-11 2022-01-11 Outpatient Brock [facility] [id number] Univers 14:45:00 23:59:00 [facility] 2022-01-11 2022-01-11 Office Mom[facility]AD[facility] 1.2.840.114 [id number] Univers 13:45:00 14:00:00 Visit [facility] 350.1.13.10 it y of [facility] 4.2.7.2.686 Emanuel as JOLLY?BLEA [phone] Oh dical CONTRERAS 198 [facility] 2022-01-11 2022-01-11 Outpatient Brock [facility] [id number] Univers 13:45:00 13:45:00 [facility] 2022-01-07 2022-01-07 Telephone [facility] 1.2.840.114 [id number] Univers 00:00:00 00:00:00 Tray HEALTH 350.1.13.10 it y of [place] 4.2.7.2.686 Emanuel as JOLLY?BLEA [id number] [address] OFFICE [facility] 2022-01-06 2022-01-06 Telephone [facility] 1.2.840.114 [id number] Univers 00:00:00 00:00:00 Wondiful A HEALTH 350.1.13.10 ity of [place] 4.2.7.2.686 Emanuel as JOLLY?BLEA [id number] [address] OFFICE [facility] 2022-01-05 2022-01-05 Telephone [facility] 12.840.114 [id number] Univers 00:00:00 00:00:00 [facility] HEALTH 350.1.13.10 it y of [place] 4.2.7.2.686 Emanuel as JOLLY?BLEA [id number] [address] OFFICE [facility] 2022-01-04 2022-01-04 Telephone [facility] 1.2.840.114 [id number] Univers 00:00:00 00:00:00 [facility] HEALTH 350.1.13.10 it y of [place] 4.2.7.2.686 Emanuel as JOLLY?BLEA [id number] [address] 2021-12-31 2021-12-31 Telephone [facility] 1.2.840.114 [id number] Univers 00:00:00 00:00:00 Tray HEALTH 350.1.13.10 it y of [place] 4.2.7.2.686 Emanuel as JOLLY?BLEA [id number] [address] OFFICE [facility] 2021-12-31 2021-12-31 [address]840[address]114 925 [id number] Univers 00:00:00 00:00:00 Tray HEALTH 350.1.13.10 it y of [place] 4.2.7.2.686 Emanuel as JOLLY?BLEA 506.8515836 Oh dicroshan CHAIREZ 044 [facility] OFFICE [facility] 2021-12-30 2021-12-30 Patient Jessie [facility] 1.2.840.114 [id number] Univers 00:00:00 00:00:00 Outreach Genesis Shah [facility] 350.1.13.10 ity of [place] 4.2.7.2.686 Emanuel as PROFESSIO [phone] Oh dicroshan BARNEY [address] [place] [address] OFFICE [facility] ONE 2021-12-28 2021-12-28 Outpatient R [facility] [id number] Univers 09:30:00 10:07:08 [facility] 2021-12-28 2021-12-28 Outpatient R [facility] [id number] Univers 09:30:00 10:07:08 [facility] 2021-12-28 2021-12-28 Office [facility] 1.2.629.321 [id number] [id number] Univers 09:30:00 10:07:08 Visit Cecile GREGORIO 350.1.13.10 i ty of [place] 4.2.7.2.686 [place] [id number] Oh samir[address] 2021-12-24 2021-12-24 Outpatient R [facility] [id number] Univers 14:00:00 14:00:00 ity of [facility] 2021-12-24 2021-12-24 Patient Rik [facility] 1.2.840.114 [id number] Univers 00:00:00 00:00:00 Secure [facility] 350.1.13.10 ity of [facility] 4.2.7.2.686 Emanuel as JOLLY?BLEA [id number] Oh gabi CHAIREZ [address] [place] [address] OFFICE [facility] 2021-12-22 2021-12-22 Telephone [facility] 1.2.840.114 [id number] Univers 00:00:00 00:00:00 Cecile GREGORIO 350.1.13.10 i ty of [place] 4.2.7.2.686 [place] [phone] Oh dical NAL [address] [place] [address] 2021-12-16 2021-12-16 [facility] 1.2.840.114 [id number] Univers 00:00:00 00:00:00 [facility] 350.1.13.10 it y of [place] GREGORIO 4.2.7.2.686 Emanuel as JOLLY?BLEA [id number] Oh gabi CHAIREZ 044 [facility] 2021-12-11 2021-12-11 Surgery [facility] 1.2.721.828 [id number] Univers 10:33:00 11:46:00 Cecile BYERSCHRISTELLE 350.1.13.10 [facility] [place] [id number] [address] 2021-12-11 2021-12-11 Surgery [facility] 1.2.270.409 [id number] Univers 10:33:00 11:46:00 Cecile GREGORIO 350.1.13.10 [facility] 4[place] [id number] [address] 2021-12-11 2021-12-11 Surgery [facility] 1.2.092.555 [id number] Univers 10:33:00 11:46:00 Cecile JG 350.1.13.10 i [place] [id number] [address] 2021-12-11 2021-12-11 Outpatient R [facility] MARCUS [id number] Univers 08:40:00 11:25:00 CECILE flores [facility] 2021-12-11 2021-12-11 [facility] 1.2.840.114 [id number] Univers 08:40:00 11:25:00 Encounter Cecile GREGORIO 350.1.13.10 [place] [phone] [address] 2021-12-11 2021-12-11 Outpatient R [facility] MARCUS [id number] Univers 08:40:00 11:25:00 CECILE jay [facility] 2021-12-11 2021-12-11 Outpatient [facility] MARCUS [id number] Univers 08:40:00 11:25:00 CECILE flores [facility] 2021-12-11 2021-12-11 Orders Doctor CLAU 1.2.840.114 [id number] Univers 00:00:00 00:00:00 Only Unassigned, GRAYSON 350.1.13.10 ity of [facility] 4.2.7.2.686 Emanuel as [id number] [address] 2021-12-09 2021-12-09 Telephone [facility] 1.2.840.114 [id number] Univers 00:00:00 00:00:00 Wondiful A HEALTH 350.1.13.10 ity of [place] 4.2.7.2.686 Emanuel as JOLLY?BLEA [phone] Oh gabi CHAIREZ [address] [facility] OFFICE [facility] 2021-12-08 2021-12-08 Outpatient R [facility] [id number] Univers 13:00:00 13:00:00 ity of [facility] 2021-12-08 2021-12-08 Telephone [facility] 1.2.840.114 [id number] Univers 00:00:00 00:00:00 Tray HEALTH 350.1.13.10 it y of [place] 4.2.7.2.686 Emanuel as JOLLY?BLEA [phone] Oh gabi CHAIREZ 044 [facility] OFFICE [facility] [facility] 2021-12-08 2021-12-08 Telephone [facility] 1.2.840.114 [id number] Univers 00:00:00 00:00:00 Tray HEALTH 350.1.13.10 it y of [place] 4.2.7.2.686 Emanuel as JOLLY?BLEA [phone] Oh gabi CHAIREZ 044 [facility] OFFICE [facility] 2021-12-03 2021-12-03 [facility] [id number] Univers 13:30:00 13:30:00 ORPHEUS ity [facility] 2021-12-03 2021-12-03 Telephone [facility] 1.2.840.114 [id number] Univers 00:00:00 00:00:00 Cecile BYERSCHRISTELLE 350.1.13.10 i ty of [place] 4.2.7.2.686 [place] [phone] Oh gabi [facility] 2021-12-03 2021-12-03 Telephone [facility] 1.2.840.114 [id number] Univers 00:00:00 00:00:00 Wondiful A HEALTH 350.1.13.10 ity of [place] 4.2.7.2.686 Emanuel as PROFESSIO [id number] [address] OFFICE [facility] ONE 2021-12-01 2021-12-01 [facility] [id number] Univers 14:15:00 14:54:12 WONDIFUL ity o f [facility] 2021-12-01 2021-12-01 Office [facility] 1..840.114 [id number] Univers 14:15:00 14:54:12 Visit Wondiful A HEALTH 350.1.13.10 ity of [place] 4.2.7.2.686 Emanuel as JOLLY?BLEA [id number] [address] OFFICE [facility] 2021-12-01 2021-12-01 Outpatient R NISA [facility] [id number] Univers 14:15:00 14:54:12 WONDIFUL ity o f [facility] 2021-12-01 2021-12-01 Patient [facility] 1.2.840.114 [id number] Univers 00:00:00 00:00:00 Outreach Vik Fleming HEALTH 350.1.13.10 i ty of [place] 4.2.7.2.686 Emanuel as JOLLY?BLEA [phone] [address] OFFICE BUILDING 2021-12-01 2021-12-01 Patient Scot [facility] 1.2.840.114 [id number] Univers 00:00:00 00:00:00 Outreach Vik Fleming HEALTH 350.1.13.10 i ty of [place] 4.2.7.2.686 Emanuel as JOLLY?BLEA [phone] Oh gabi [address] MEDICAL OFFICE BUILDING 2021-11-18 2021-11-18 Outpatient R NISA [facility] [id number] Univers 10:00:00 10:44:34 WONDIFUL ity o f [facility] 2021-11-18 2021-11-18 Outpatient R NISA [facility] [id number] Univers 10:00:00 10:44:34 WONDIFUL ity o f [facility] 2021-11-18 2021-11-18 Outpatient R NISA [facility] [id number] Univers 10:00:00 10:00:00 WONDIFUL ity o f [facility] 2021-11-18 2021-11-18 Outpatient R NISA [facility] [id number] Univers 10:00:00 10:00:00 WONDIFUL ity o f [facility] 2021-11-18 2021-11-18 Outpatient R NISA [facility] [id number] Univers 10:00:00 10:00:00 WONDIFUL ity o f [facility] 2021-11-16 2021-11-16 Outpatient R MÁRQUEZ [facility] [id number] Univers 09:30:00 09:30:00 [facility] 2021-11-16 2021-11-16 Outpatient R WILLI [facility] [id number] Univers 09:30:00 09:30:00 [facility] 2021-11-16 2021-11-16 Outpatient R WILLI [facility] [id number] Univers 09:30:00 09:30:00 CECILE [facility] 2021-11-15 2021-11-15 Emergency X [facility] ERT [id number] Univers 09:06:00 12:49:00 DESTINY flores [facility] 2021-11-15 2021-11-15 Emergency [facility] 1.2.388.728 [id number] Univers 09:06:00 12:49:00 Destiny GREGORIO 350.1.13.10 i ty of [place] 4.2.7.2.686 [place] [facility] [phone] [facility] 084 Mode 2021-11-15 2021-11-15 Emergency X ONEILL, [facility] ERT [id number] Univers 09:06:00 12:49:00 DESTINY ity of [facility] 2021-11-10 2021-11-10 Telephone [facility] 1.2.840.114 [id number] Univers 00:00:00 00:00:00 Wondiful A HEALTH 350.1.13.10 ity of [place] 4.2.7.2.686 Emanuel as JOLLY?BLEA [phone] [address] OFFICE [facility] 2021-11-05 2021-11-05 Orders Doctor CLAU 1.2.840.114 [id number] Univers 00:00:00 00:00:00 Only Unassigned, GRAYSON 350.1.13.10 ity of [place] [facility] 4.2.7.2.686 Emanuel as [id number] [facility] 009 Mode 2021-11-05 2021-11-05 Telephone [facility] 1.2.840.114 [id number] Univers 00:00:00 00:00:00 Wondiful A HEALTH 350.1.13.10 ity of [place] 4.2.7.2.686 Emanuel as JOLLY?BLEA [id number] [address] OFFICE [facility] 2021-11-03 2021-11-03 [facility] 1.2.840.114 [id number] Univers 00:00:00 00:00:00 Wondiful A HEALTH 350.1.13.10 ity of [place] 4.2.7.2.686 Emanuel as JOLLY?BLEA [id number] [address] OFFICE [facility] 2021-11-03 2021-11-03 Telephone [facility] 1.2.840.114 [id number] Univers 00:00:00 00:00:00 Wondiful A HEALTH 350.1.13.10 ity of [place] 4.2.7.2.686 Emanuel as JOLLY?BLEA [id number] [address] OFFICE [facility] 2021-10-27 2021-10-27 Case Sanjay Sánchez CINTHIA 1.2.840.114 [id number] Univers 00:00:00 00:00:00 Management H 350.1.13.10 ity of [facility] 4.2.7.2.686 Emanuel as [id number] [address] 2021-10-26 2021-10-26 Telephone Dawson Sánchezwanda VICENTE 1.2.840.114 [id number] Univers 00:00:00 00:00:00 H 350.1.13.10 it y of [facility] 4.2.7.2.686 Emanuel as [id number] [address] 2021-10-23 2021-10-23 Telephone Jaymie [facility] 1.2.237.690 [id number] Univers 00:00:00 00:00:00 Corry GREGORIO 350.1.13.10 ity of [place] 4.2.7.2.686 [place] ESS[place] [phone] Oh gabi [address] 2021-10-22 2021-10-22 Outpatient [facility] [id number] Univers 14:45:00 14:45:00 ISAC [facility] 2021-10-22 2021-10-22 Outpatient Brock [facility] [id number] Univers 14:45:00 14:45:00 ISAC ity [facility] 2021-10-22 2021-10-22 Outpatient Brock [facility] [id number] Univers 14:45:00 14:45:00 [facility]-10-22 2021-10-22 Outpatient Brock [facility] [id number] Univers 14:45:00 14:45:00 [facility] 2021-10-19 2021-10-19 Telephone Nisa [facility] 1.2.840.114 [id number] Univers 00:00:00 00:00:00 Wondiful A HEALTH 350.1.13.10 ity [facility] 4.2.7.2.686 Emanuel as JOLLY?BLEA [phone] Oh dical CONTRERAS [address] [place] [address] MEDICAL OFFICE BUILDING 2021-10-13 2021-10-13 Outpatient R [facility] [id number] Univers 10:30:00 10:41:12 CORRY flores [facility] 2021-10-13 2021-10-13 Office [facility]AD[facility] 1.2.840.114 [id number] Univers 10:30:00 10:41:12 Visit Corry GREGORIO 350.1.13.10 ity of [place] 4.2.7.2.686 [place] mitzy ORTIZESSIO [phone] Me dical SAVITA [facility] 2021-10-13 2021-10-13 Outpatient R [facility] [id number] Univers 10:30:00 10:41:12 CORRY flores [facility] 2021-09-29 2021-09-29 Outpatient [facility] [id number] Univers 16:14:01 23:59:00 CAPRICE flores [facility] 2021-09-29 2021-09-29 Outpatient R [facility] [id number] Univers 16:14:01 23:59:00 CAPRICEBRAYDEN flores [facility] 2021-09-29 2021-09-29 Hospital HenriquezADV[facility] 1.2.840.114 [id number] Univers 16:14:01 23:59:00 Encounter Caprice Bernadette HEALTH 350.1.13.10 ity of [place] 4.2.7.2.686 Emanuel as JOLLY?BLEA [phone] Oh gabi CHAIREZ 809 [facility] 2021-09-29 2021-09-29 Outpatient [facility] [id number] Univers 16:14:01 23:59:00 CAPRICE flores [facility] 2021-09-29 2021-09-29 Office Mom[facility]AD[facility] 1.2.840.114 [id number] Univers 16:00:00 16:58:02 Visit Isac S HEALTH 350.1.13.10 it y of [facility] 4.2.7.2.686 Emanuel as JOLLY?BLEA [phone] Me dical KNEY 198 [facility] 2021-09-29 2021-09-29 Outpatient [facility] [id number] Univers 16:00:00 16:58:02 [facility] 2021-09-29 2021-09-29 Outpatient Brock MOMO [facility] [id number] Univers 16:00:00 16:58:02 ISAC itjay [facility] 2021-09-29 2021-09-29 Outpatient Brock BARR [facility] [id number] Univers 16:00:00 16:00:00 [facility] 2021-09-24 2021-09-24 Outpatient Brock BARR [facility] [id number] Univers 14:00:00 14:00:00 [facility] 2021-09-19 2021-09-19 Nurse Caprice Ozuna 1.2.840.114 [id number] Univers 00:00:00 00:00:00 Triage GRAYSON 350.1.13.10 it y of [facility] 4.2.7.2.686 Emanuel as [id number] [address] 2021-09-09 2021-09-09 Prep For JaymieAD[facility] 1.2.840.114 [id number] Univers 00:00:00 00:00:00 Surgery Corry GREGORIO 350.1.13.10 ity [facility] 4.2.7.2.686 [place] PROF[place] [id number] Oh dical [facility] 204 [facility] 2021-09-08 2021-09-08 Office MárquezADVANCED [facility]ARE [facility] 1.2.769.335 [id number] Univers 14:30:00 16:16:36 Visit Cecile GREGORIO 350.1.13.10 i ty of [place] 4.2.7.2.686 [place] [phone] Oh dical NAL 188 [facility] 2021-09-08 2021-09-08 Outpatient Brock MÁRQUEZ [facility] [id number] Univers 14:30:00 16:16:36 CECILE flores [facility] 2021-09-08 2021-09-08 Outpatient Brock MÁRQUEZ [facility] [id number] Univers 14:30:00 16:16:36 CECILE flores [facility] 2021-09-08 2021-09-08 Outpatient R MÁRQUEZ, [facility] [id number] Univers 14:30:00 14:30:00 CECILE flores [facility] 2021-09-08 2021-09-08 Orders Doctor CLAU 1.2.840.114 [id number] Univers 00:00:00 00:00:00 Only Unassigned, GRAYSON 350.1.13.10 ity of [place] [facility] 4.2.7.2.686 Emanuel as [id number] [address] 2021-09-02 2021-09-02 Out[facility] [id number] Univers 14:00:00 14:00:00 CAPRICE flores [facility] 2021-08-31 2021-08-31 Orders Doctor CLAU 1.2.840.114 [id number] Univers 00:00:00 00:00:00 Only Unassigned, GRAYSON 350.1.13.10 ity of [place] [facility] 4.2.7.2.686 Emanuel as [id number] [address] 2021-08-26 2021-08-26 Outpatient R NISA [facility] [id number] Univers 10:45:00 11:58:51 WONDIFUL ity o f [facility] 2021-08-26 2021-08-26 Outpatient R NISA [facility] [id number] Univers 10:45:00 11:58:51 WONDIFUL ity o f [facility] 2021-08-26 2021-08-26 Outpatient R NISA [facility] [id number] Univers 10:45:00 11:58:51 WONDIFUL ity o f [facility] 2021-08-26 2021-08-26 Outpatient R NISA [facility] [id number] Univers 10:45:00 11:58:51 WONDIFUL ity o [facility] 2021-08-26 2021-08-26 Office [facility]AD[facility] 1.2.840.114 [id number] Univers 10:34:47 11:58:51 Visit Wondiful A HEALTH 350.1.13.10 ity of [place] 4.2.7.2.686 Emanuel as JOLLY?BLEA [phone] Oh dicroshan CHAIREZ 044 Mode MEDICAL OFFICE [facility] 2021-08-17 2021-08-17 Case N[facility]AD[facility] 1.2.840.114 [id number] Univers 00:00:00 00:00:00 Management Wondiful A HEALTH 350.1.13.10 ity [facility] 4.2.7.2.686 Emanuel as JOLLY?BLEA [id number] [facility] 044 Mode MEDICAL OFFICE [facility] 2021-08-13 2021-08-13 Outpatient R NISA [facility] [id number] Univers 07:58:20 23:59:00 WONDIFUL ity o f [facility] 2021-08-13 2021-08-13 Hospital [facility]AD[facility] 1.2.528.402 [id number] Univers 07:58:20 23:59:00 Encounter Wondiful A [place] 350.1.13.10 ity [facility] 4.2.7.2.686 [place] RUDY [phone] [facility] 806 Mode 2021-08-13 2021-08-13 [facility] [id number] Univers 07:58:20 23:59:00 WONDIFUL ity o f [facility] 2021-08-13 2021-08-13 Manager Statistical Programming Zachariah, Kevin [facility] Main [facility] 1.2.8 40.114 [id number] Univers 07:57:57 08:12:57 Visit Bunny Paulamery A [place] 350.1.13. 10 ity of [place] 4.2.7.2.686 [place] [facility] [id number] Oh gabi [facility] 353 [facility] 2021-08-13 2021-08-13 Outpatient R NISA [facility] [id number] Univers 00:00:00 00:00:00 WONDIFUL ity o f [facility] 2021-08-04 2021-08-04 Outpatient Brock PAULA [facility] [id number] Univers 15:30:00 15:42:52 WONDIFUL ity o f [facility] 2021-08-04 2021-08-04 Outpatient Brock PAULA [facility] [id number] Univers 15:30:00 15:42:52 WONDIFUL ity o f [facility] 2021-08-04 2021-08-04 Outpatient R NISA [facility] [id number] Univers 15:30:00 15:42:52 WONDIFUL ity o f [facility] 2021-08-04 2021-08-04 Outpatient R NISA [facility] [id number] Univers 15:30:00 15:42:52 WONDIFUL ity o f [facility] 2021-08-04 2021-08-04 Outpatient R NISA [facility] [id number] Univers 15:30:00 15:42:52 WONDIFUL ity o [facility] 2021-08-04 2021-08-04 Office [facility] 1.2.840.114 [id number] Univers 14:30:05 15:42:52 [facility] 350.1.13.10 [facility] 4.2.7.2.686 Emanuel as JOLLY?BLEA [phone] [address] MEDICAL OFFICE BUILDING 2021-08-04 2021-08-04 Outpatient Brock PAULA [facility] [id number] Univers 15:30:00 15:30:00 WONDIFUL ity o [facility] 2021-08-03 2021-08-03 Pre Visit CLAU Edmondson 1.2.840.114 [id number] Univers 00:00:00 00:00:00 Outreach Jorge GALICIA 350.1.13.10 i ty [facility] 4.2.7.2.686 Emanuel as [phone] [place] 425402 Branch 2021-07-15 2021-07-15 Outpatient R AIMEE [facility] [id number] Univers 14:20:00 14:20:00 SHORTY ity o [facility] 2021-07-15 2021-07-15 Outpatient Brock YU [facility] [id number] Univers 14:20:00 14:20:00 SHROTY ity o [facility] 2021-07-15 2021-07-15 Outpatient Brock AIMEE [facility] [id number] Univers 14:20:00 14:20:00 SHORTY alany o f [facility] 2021-07-15 2021-07-15 Outpatient Brock YU [facility] [id number] Univers 14:20:00 14:20:00 SHORTY alany o f [facility] 2021-07-14 2021-07-14 Reffranchesca Paula [facility] 1.2.840.114 [id number] Univers 00:00:00 00:00:00 Wondiful A Health 350.1.13.10 ity of [place] 4.2.7.2.686 Emanuel as Professio [phone] [address] Office [facility] One 2021-07-10 2021-07-10 [place] [id number] 021 Devoted 05:13:00 05:13:00 1015 Medica l [facility] 2021-07-02 2021-07-02 Reffranchesca PaulaADV[facility] 1.2.840.114 [id number] [facility] Univers 00:00:00 00:00:00 Wondiful A Health 350.1.13.10 ity of [place] 4.2.7.2.686 Emanuel as Professio [id number] [address] One 2021-06-15 2021-06-15 Orders Doctor CLAU 1.2.840.114 [id number] Univers 00:00:00 00:00:00 Only Unassigned, GRAYSON 350.1.13.10 ity of [place] [facility] 4.2.7.2.686 Emanuel as [id number] [facility] 009 Branch 2021-06-08 2021-06-08 Patient RadhaNicolasberta 1.2.840.114 [id number] Univers 00:00:00 00:00:00 Outreach Emily Siny 350.1.13.10 ity of [place] 4.2.7.2.686 [place] [phone] [facility] 086 Branch 2021-06-08 2021-06-08 RefVik Hall [facility] 1.2.840.114 [id number] Univers 00:00:00 00:00:00 Health 350.1.13.10 it y of [place] 4.2.7.2.686 [facility] [id number] [facility] 092 Branch Office Building 2021-05-25 2021-05-25 Emergency X DREVER, [facility] ERT [id number] Univers 18:22:00 20:23:00 LAUREEN ity of [facility] 2021-05-25 2021-05-25 Emergency X DREVER, [facility] ERT [id number] Univers 18:22:00 20:23:00 LAUREEN ity [facility] 2021-05-25 2021-05-25 Emergency X DREVER, [facility] ERT [id number] Univers 18:22:00 20:23:00 LAUREEN ity [facility] 2021-05-25 2021-05-25 Emergency X DREVER, [facility] ERT [id number] Univers 18:22:00 20:23:00 LAUREEN ity [facility] 2021-05-25 2021-05-25 Emergency X DREVER, [facility] ERT [id number] Univers 18:22:00 20:23:00 LAUREEN ity [facility] 2021-05-25 2021-05-25 Emergency Drever, [facility] 1.2.573.107 [id number] Univers 18:22:00 20:23:00 Laureen [place] 350.1.13.10 ity of [place] 4.2.7.2.686 [facility] [id number] [place] 425404 Branch 2021-05-21 2021-05-21 Outpatient R LAILA ORELLANA [facility] [id number] Univers 09:30:00 09:30:00 LAILA ORELLANA i ty [facility] 2021-05-19 2021-05-19 Susan [facility]ADV[facility] 1.2.840.114 [id number] Univers 00:00:00 00:00:00 Wondiful A Health 350.1.13.10 ity of [place] 4.2.7.2.686 Emanuel as Professio [id number] Oh dical nal 044 Branch Office Building One 2021-05-14 2021-05-14 Outpatient R SANJAY SÁNCHEZ [facility] [id number] Univers 09:00:00 09:00:00 ity of [facility] 2021-05-09 2021-05-09 Outpatient DMG [facility] [id number] 021 Devoted 11:00:00 11:00:00 0814 Medica l Group 2021-05-08 2021-05-08 Outpatient R FLORENCE [facility] [id number] Univers 07:37:21 23:59:00 CAPRICE ity [facility] 2021-05-08 2021-05-08 Outpatient R FLORENCE [facility] [id number] Univers 07:37:21 23:59:00 CAPRICE itjay [facility] 2021-05-08 2021-05-08 Outpatient R FLORENCE [facility] [id number] Univers 07:37:21 23:59:00 CAPRICE mark [facility] 2021-05-08 2021-05-08 Outpatient Brock HENRIQUEZ [facility] [id number] Univers 07:37:21 23:59:00 [place] itjay [facility] 2021-05-08 2021-05-08 Outpatient Brock BARR [facility] [id number] Univers 08:15:00 08:15:00 ISAC itjay [facility] 2021-05-07 2021-05-07 [id number] Devoted 12:00:00 12:00:00 0812 Medica l Group 2021-04-27 2021-04-27 Susan Pr[facility]adADVANC[facility] 1.2.840.114 [id number] Univers 00:00:00 00:00:00 [facility] 350.1.13.10 it y of [place] 4.2.7.2.686 Emanuel as PROFESSIO [id number] Oh dical [place] [address] Branch OFFICE BUILDING ONE 2021-04-21 2021-04-21 Outpatient Brock PAULA [facility] [id number] Univers 15:45:00 15:45:00 WONDIFUL ity o f [facility] 2021-04-07 2021-04-07 Outpatient Brock PRASAD [facility] [id number] Univers 09:20:00 09:20:00 RD phillipsjay [facility] 2021-04-02 2021-04-02 Outpatient R MOMO, [facility] [id number] Univers 08:45:00 08:45:00 ISAC itjay [facility] 2021-04-01 2021-04-01 Emergency X NINO, [facility] ERT [id number] Univers 13:00:00 15:36:00 DESTINY flores [facility] 2021-04-01 2021-04-01 Emergency X NINO, [facility] ERT [id number] Univers 13:00:00 15:36:00 DESTINY flores [facility] 2021-04-01 2021-04-01 Emergency X NINO, [facility] ERT [id number] Univers 13:00:00 15:36:00 DESTINY flores [facility] 2021-04-01 2021-04-01 Outpatient R [facility] [id number] Univers 08:45:00 08:45[facility] 2021-03-28 Outpatient R BELLA, [facility] [id number] Univers 09:40:00 09:40:00 CHELA phillipsjay o f [facility] 2021-03-27 2021-03-27 Outpatient R WIL, [facility] [id number] Univers 09:30:00 09:30:00 MATEO jay [facility] 2021-03-26 2021-03-26 Outpatient R MOMO, [facility] [id number] Univers 15:15:00 15:15:00 ISAC [facility] 2021-03-25 2021-03-25 Outpatient R JAYMIE, [facility] [id number] Univers 08:30:00 08:30:00 [facility] 2021-03-23 Outpatient R STEFFANIE, [facility] [id number] Univers 08:00:00 08:00:00 EMERY phillipsy o f [facility] 2021-03-20 2021-03-20 Emergency X Tatiana MITCHELL [facility] ERT [id number] Univers 19:09:00 19:47:00 ity [facility] 2021-03-20 2021-03-20 Emergency X Tatiana MITCHELL [facility] ERT [id number] Univers 19:09:00 19:47:00 ity [facility] 2021-03-20 2021-03-20 Emergency X STEPHEN, Tatiana [facility] ERT [id number] Univers 19:09:00 19:47:00 ity [facility] 2021-03-18 2021-03-18 Outpatient Brock HENRIQUEZ, [facility] NUT [id number] Univers 00:00:00 00:00:00 [facility] 2021-03-12 [facility] [id number] Univers 08:30:00 08:30:00 [facility]11 2021-03-11 [facility] [id number] Univers 16:15:00 16:15:00 [facility] 2021-03-10 2021-03-10 [facility] [id number] Univers 00:00:00 00:00:00 [facility] [id number] it y of CLEAR [id number] [facility] [id number] [facility] [address] OFFICE BUILDING 2021-02-25 2021-02-25 [facility] [id number] Univers 14:30:00 14:30:00 [facility] 2021-02-25 2021-02-25 [facility]phone [facility] [id number] 00:00:00 00:00:00 [facility] Kaley [place] [id number] [place] [id number] Professio [id number] nal 059 Building 2021-02-24 2021-02-24 Outpatient Brock PAULA [facility] [id number] Univers 11:00:00 11:00:00 WONDIFUL ity o f [facility] 2021-02-19 2021-02-19 [facility] [id number] Univers 10:03:49 23:59:00 CAPRICE [facility] 2021-02-19 2021-02-19 [facility] [id number] Univers 00:00:00 00:00:00 [facility] 2021-02-17 Outpatient R [facility] [id number] Univers 17:40:00 17:40:[facility] 2021-02-17 Outpatient R JONA [facility] [id number] Univers 17:40:00 17:17:33 [facility] 2021-02-17 Outpatient R JONA [facility] [id number] Univers 17:40:00 17:17:33 [facility] 2021-02-17 Outpatient R JONA [facility] [id number] Univers 17:40:00 17:17:33 ROGE [facility] 2021-02-10 2021-02-10 Outpatient R ATUL [facility] [id number] Univers 09:00:00 09:00:00 [facility]-09 2021-02-09 Outpatient R MOMO [facility] [id number] Univers 14:45:00 14:45:00 [facility] 2021-02-09 2021-02-09 Outpatient R MOMO [facility] [id number] Univers 14:45:00 14:45:00 [facility] 2021-02-04 2021-02-04 Outpatient R MARCELINA VALERA [facility] [id number] Univers 10:30:00 10:30:00 MARCELINA VALERA [facility] 2021-02-03 2021-02-03 Outpatient R NISA [facility] [id number] Univers 16:30:00 16:30:00 WONDIFUL ity o f [facility] 2021-01-27 2021-01-27 Outpatient R NAV ANTONIO [facility] [id number] Univers 15:00[facility]00 [facility] 2021-01-21 Outpatient R ATUL [facility] [id number] Univers 11:00:00 11:00:00 SENDIL ity [facility] 2021-01-20 2021-01-20 Outpatient R SANJAY SÁNCHEZ [facility] [id number] Univers 11:00:00 11:00:00 ity [facility] 2021-01-14 2021-01-14 Outpatient R RIK, [facility] [id number] Univers 10:45:00 10:45:00 TRAY ity [facility] 2021-01-08 2021-01-08 Outpatient R MOMO, [facility] [id number] Univers 08:45:00 08:45:00 ISAC ity [facility] 2021-01-06 2021-01-06 Outpatient R AIMEE, [facility] [id number] Univers 11:00:00 11:00:00 SHORTY ity o f [facility] 2021-01-01 2021-01-01 Outpatient R NISA, [facility] [id number] Univers 15:00:00 15:00:00 WONDIFUL ity o f [facility] 2021-01-01 2021-01-01 Outpatient R NISA, [facility] [id number] Univers 15:00:00 15:00:00 WONDIFUL ity o f [facility] 2021-01-01 2021-01-01 Outpatient R NISA, [facility] [id number] Univers 15:00:00 15:00:00 WONDIFUL ity o f [facility] 2021-01-01 2021-01-01 Outpatient R NISA, [facility] [id number] Univers 15:00:00 15:00:00 WONDIFUL ity o f [facility] 2020-12-13 2020-12-[address] [facility] [id number] Univers 08:25:00 08:25:00 ity [facility] 2020-12-13 2020-12-13 Outpatient Brock LINDO [facility] [id number] Univers 08:25:00 08:25:00 TAMMY ity [facility] 2020-12-13 2020-12-13 Outpatient Brock LINDO [facility] [id number] Univers 08:25:00 08:25:00 TAMMY ity [facility] 2020-12-13 2020-12-13 Outpatient R BELGICA, [facility] [id number] Univers 08:25:00 08:25:00 TAMMY ity [facility] 2020-12-02 2020-12-02 Outpatient R JAKE, [facility] [id number] Univers 09:00:00 09:00:00 LIANA ity [facility] 2020-12-02 2020-12-02 Outpatient R JAKE, [facility] [id number] Univers 09:00:00 09:00:00 LIANA ity [facility] 2020-12-02 2020-12-02 Outpatient R JAKE, [facility] [id number] Univers 09:00:00 09:00:00 LIANA ity [facility] 2020-12-02 2020-12-02 Outpatient R JAKE, [facility] [id number] Univers 09:00:00 09:00:00 LIANA ity [facility] 2020-11-22 2020-11-22 Outpatient R BELGICA, [facility] [id number] Univers 09:40:00 09:40:00 TAMMY ity [facility] 2020-11-22 2020-11-22 Outpatient R BELGICA, [facility] [id number] Univers 09:40:00 09:40:00 TAMMY ity [facility] 2020-11-22 2020-11-22 Outpatient R BELGICA [facility] [id number] Univers 09:40:00 09:40:00 TAMMY ity [facility] 2020-11-21 2020-11-21 Outpatient R DONOVAN [facility] [id number] Univers 14:00:00 14:00:00 LAKISHA ity [facility] 2020-11-20 2020-11-20 Outpatient R LAILA ORELLANA [facility] [id number] Univers 15:00:00 15:00:00 LAILA ORELLANA i [facility] 2020-11-09 2020-11-09 Outpatient R ELISHA [facility] [id number] Univers 08:20:00 08:20:00 RD flores [facility] 2020-11-09 2020-11-09 Outpatient R ELISHA [facility] [id number] Univers 08:20:00 08:20:00 RD flores [facility] 2020-11-09 2020-11-09 Outpatient R ELISHA [facility] [id number] Univers 08:20:00 08:20:00 RD jay [facility] 2020-11-07 2020-11-07 Outpatient R VIK OLIVEIRA [facility] [id number] Univers 11:30:00 11:30:00 jay [facility] 2020-11-06 2020-11-06 Outpatient R NISA, [facility] [id number] Univers 08:15:00 08:15:00 WONDIFUL ity o f [facility] 2020-10-16 2020-10-16 Outpatient R ELISHA [facility] [id number] Univers 18:00:00 18:00:00 RD jay [facility] 2020-10-02 2020-10-02 Outpatient R MOMO, [facility] [id number] Univers 10:15:00 10:15:00 ISAC [facility] 2020-09-22 2020-09-22 Outpatient R STEFFANIE, [facility] [id number] Univers 08:00:00 08:00:00 EMERY ity o f [facility] 2020-09-15 2020-09-15 Outpatient R NISA, [facility] [id number] Univers 00:00:00 00:00:00 WONDIFUL ity o f [facility] 2020-09-15 2020-09-15 Outpatient R NISA, [facility] [id number] Univers 00:00:00 00:00:00 WONDIFUL ity o f [facility] 2020-09-14 2020-09-14 Outpatient R JONA [facility] [id number] Univers 08:40:00 08:40:00 ROGE [facility] 2020 2020 Outpatient R NISA, [facility] [id number] Univers 00:00:00 00:00:00 WONDIFUL ity o f [facility] 2020-09-10 2020-09-10 Outpatient R DONITA [facility] [id number] Univers 08:00:00 08:00:00 SHANTI flores [facility] 2020-09-08 2020-09-08 Outpatient R SELF, [facility] [id number] Univers 08:00:00 08:00:00 EMERY ity o f [facility] 2020-09-04 2020-09-04 Outpatient R NISA, [facility] [id number] Univers 16:00:00 16:00:00 WONDIFUL ity o f [facility] 2020-08-25 2020-08-25 Outpatient R NISA, [facility] [id number] Univers 11:00:00 11:13:03 WONDIFUL ity o f [facility] 2020-08-25 2020-08-25 Outpatient R NISA, [facility] [id number] Univers 10:30:00 10:30:00 WONDIFUL ity o f [facility] 2020-08-06 2020-08-06 Outpatient R PATRICIO, [facility] [id number] Univers 10:20:00 10:20:00 BALJIT flores [facility] 2020-08-06 2020-08-06 Outpatient R PATRICIO [facility] [id number] Univers 09:00:00 09:00:00 BALJIT flores [facility] 2020-08-01 2020-08-01 Outpatient R HINTON, [facility] [id number] Univers 10:00:00 10:00:00 MATEO mark [facility] 2020-07-18 2020-07-18 Outpatient R LAILA ORELLANA [facility] [id number] Univers 11:00:00 11:00:00 LAILA ORELLANA i [facility] 2020-07-17 2020-07-17 Outpatient R VIK OLIVEIRA [facility] [id number] Univers 12:00:00 12:00:00 ity [facility] 2020-07-14 2020-07-14 Outpatient R NISA, [facility] [id number] Univers 10:45:00 10:45:00 WONDIFUL ity o f [facility] 2020-07-07 2020-07-07 Outpatient R MAKSIM, [facility] [id number] Univers 08:30:00 08:30:[facility] 2020-06-27 Outpatient R NISA, [facility] [id number] Univers 15:15:00 15:15:00 WONDIFUL ity o f [facility] 2020-06-12 2020-06-12 Outpatient R MAKSIM, [facility] [id number] Univers 15:45:00 15:45:00 AUBRIE [facility] 2020-06-05 2020-06-05 Outpatient R MOMO, [facility] [id number] Univers 10:30:00 10:30:00 [facility] 2020-06-[facility] 2020-06-03 Outpatient R ATUL, [facility] [id number] Univers 09:00:00 09:00:00 SENDIL [facility] 2020-05-16 2020-05-16 Outpatient R OLIVEIRAVIK [facility] [id number] Univers 16:30:00 16:30:00 ity [facility] 2020-05-09 2020-05-09 Outpatient R [facility] [id number] Univers 10:20:00 10:20:00 ity [facility] 2020-04-21 2020-04-21 Outpatient R ARGENIS, [facility] [id number] Univers 11:40:00 11:40:00 DORITA [facility] 2020-04-18 2020-04-18 Outpatient R ATUL, [facility] [id number] Univers 09:30:00 09:30:00 SENDIL [facility] 2020-04-15 2020-04-15 Outpatient R [facility] [id number] Univers 10:20:00 10:20:00 ity [facility] 2020-04-04 2020-04-04 Outpatient R [facility] [id number] Univers 10:00:00 10:00:00 ity [facility] 2020-04-01 2020-04-01 Outpatient R [facility] [id number] Univers 08:00:00 08:00:00 ity [facility] 2020-03-20 2020-03-20 Outpatient R ROMARIO, [facility] [id number] Univers 10:00:00 10:00:00 FABRICIO [facility] 2020-03-10 2020-03-10 Outpatient R MIKAYLA [facility] [id number] Univers 08:45:00 08:45:00 CL [facility] 2020-03-03 2020-03-03 Outpatient R MAKSIM, [facility] [id number] Univers 08:00:00 08:00:00 AUBRIE [facility] 2020-01-22 2020-01-22 Outpatient R MOMO, [facility] [id number] Univers 15:45:00 15:45:[facility] 2020-01-22 2020-01-22 Outpatient R MOMO [facility] [id number] Univers 10:45:00 10:45:00 [facility] 2020-01-18 2020-01-18 Outpatient R SANJAY SÁNCHEZ [facility] [id number] Univers [facility]:30[facility] 2020-01-11 Outpatient R LAILA ORELLANA [facility] [id number] Univers 11:00:00 11:00:00 LAILA ORELLANA i [facility] 2020-01-10 2020-01-10 Outpatient R NISA [facility] [id number] Univers 10:00:00 10:00:00 WONDIFUL ity o f [facility] 2020-01-04 2020-01-04 Outpatient R ROXANNE VIK [facility] [id number] Univers 11:30:00 [facility] 2020-01-01 Outpatient R [facility] [id number] Univers 08:00:00 08:00:00 ity [facility] 2019-12-21 2019-12-21 Outpatient R NISA [facility] [id number] Univers 09:30:00 09:30:00 WONDIFUL ity o f [facility] 2019-12-06 2019-12-06 Outpatient R ROMARIO, [facility] [id number] Univers 11:00:00 11:00:00 FABRICIO [facility] 2019-11-30 2019-11-30 Outpatient R MOMO [facility] [id number] Univers 10:30:00 10:30:00 [facility] 2019-11-29 2019-11-29 Outpatient R MOMO [facility] [id number] Univers 08:15:00 08:15:00 [facility] 2019-11-23 2019-11-23 Outpatient R [facility] [id number] Univers 08:00:00 08:00:00 [facility] Results Test Description Test Time Test Comments Results Result Comments Source POCT GLUCOSE (AUTOMATED) 2022-03-02 13:11:54 Test Item Value Reference Range Interpretation Comme nts POCT GLU (test code = 3783001733) 137 mg/dL 70-110 H Lab Interpretation (test code = 35942-9) Abnormal [facility] GLUCOSE (AUTOMATED)2022-03-02 13:11:54 Test Item Value Reference Range Interpretation Comments POCT GLU (test code = 8726676663) 137 mg/dL 70-110 H Lab Interpretation (test code = Abnormal 42011-3) [facility] [id number] 12:59:00 Test Item Value Reference Range Interpretation Comments POCT Glu (age>30days) (test code = 137 mg/dL 70-110 A 3342) Lab Interpretation (test code = Abnormal 66858-5) [facility] [id number] 12:59:00 Test Item Value Reference Range Interpretation Comments POCT Glu (age>30days) (test code = 137 mg/dL 70-110 A 3342) Lab Interpretation (test code = Abnormal 06178-7) [facility] [id number] 12:48:00 Test Item Value Reference Range Interpretation Comments POCT PREG (test code = 1605) Negative On board controls acceptable with Yes C Line (test code = 3574) POCT PREG LOT # (test code = 3575) [id number] POCT PREG TEST DATE (test 2023-06-25 code = 3576) [facility] [id number] 12:48:00 Test Item Value Reference Range Interpretation Comments POCT PREG (test code = 1605) Negative On board controls acceptable with Yes C Line (test code = 3574) POCT PREG LOT # (test code = 3575) [id number] POCT PREG TEST DATE (test 2023-06-25 code = 3576) [facility]
[2022-08-16 20:50] LABS: Hematocrit 35.8 % (36.0-45.0); Lymphocytes % 17.4 % (15.3-44.8); MCV 88.3 fL (80-100); MPV 9.6 fL (7.6-11.3); RBC Red Blood Cell Count 4.05 M/uL (3.86-4.86)
[2022-08-16 21:06] LABS: Albumin 4.3 g/dL (3.4-5.0); Bilirubin Total 0.6 mg/dL (0.2-1.0); Potassium 3.6 mmol/L (3.5-5.1); Protein, Total 7.6 g/dL (6.4-8.2)
[2022-08-16 21:10] LABS: Urine Blood Negative (Negative); Urine Glucose Negative (Negative); Urine Protein Negative (Negative); Urine Specific Gravity 1.015 (1.005-1.030)
[2022-08-16] MEDS ORDERED: ONDANSETRON 4 MG/2 ML VIAL ONE (21:12)
[2022-08-16] MEDS ORDERED: FAMOTIDINE 20 MG/2 ML VIAL IV ONE (21:12)
[2022-08-16] MEDS ORDERED: DICYCLOMINE HCL 20 MG/2 ML AMP IM ONE (21:12)
[2022-08-16] MEDS ORDERED: NA CHLORIDE 0.9% 1,000 ML ONE (21:12)
--- NOTE | 2022-08-16 21:50 | RAD REPORT ---
EXAM DESCRIPTION: CTAbdomen Pelvis W Contrast - 08/16/2022 9:40 pm CLINICAL HISTORY: Abdominal pain. abdominal pain COMPARISON: Abdomen Pelvis W Contrast dated 10/23/2021; Abdomen Pelvis W Contrast dated 10/18/2021 ; Abdomen Pelvis W Contrast dated 08/01/2021; Abdomen Pelvis W Contrast dated 07/24/2021 TECHNIQUE: Biphasic CT imaging of the abdomen and pelvis was performed with 100 ml non-ionic IV cont rast. All CT scans are performed using dose optimization technique as appropriate and may include automated exposure control or mA/KV adjustment according to patient size. FINDINGS: The lung bases are clear.Cholecystectomy clips. The liver, spleen, pancreas, adrenal glands and kidneys are within normal limits. No bowel obstruction, free air, free fluid or abscess. The appendix is not identified as a discrete structure, however, no secondary findings of appendicitis are identified. No evidence of significan t lymphadenopathy. The cervix appears bulky in size. No suspicious bony findings. IMPRESSION: No acute intra-abdominal or pelvic finding. The cervix appears bulky in size, recommend correlation with Pap smear.
[2022-08-16 21:53] LABS: Urine Bacteria <20 /HPF (<20)
[2022-08-16 23:14] LABS: Urine Specific Gravity/Preg 1.015 (1.005-1.030)
--- NOTE | 2022-08-16 23:27 | ER ---
Nurse's Notes [facility] Name: Linda Rahman Age: 46 yrs Sex: Female : 1975 Arrival Date: 08/16/2022 Time: 19:28 Bed 2 Private MD: Diagnosis: Abdominal pain, unspecified;Nausea with vomiting, unspecified Presentation: 08/16 19:36 Chief complaint: EMS states: called 911 for top left quadrant pain causing vomiting x1, jh5 some cramping. BGL 119. Coronavirus screen: Vaccine status: Patient reports receiving the 2nd dose of the covid vaccine. Client denies travel out of the [place] in the last 14 days. Ebola Screen: Patient negative for fever greater than or equal to 101.5 degrees Fahrenheit, and additional compatible Ebola Virus Disease symptoms Patient denies exposure to infectious person. Patient denies travel to an Ebola-affected area in the 21 days before illness onset. Initial Sepsis Screen: Does the patient meet any 2 criteria? No. Patient's initial sepsis screen is negative. Does the patient have a suspected source of infection? No. Patient's initial sepsis screen is negative. Risk Assessment: Do you want to hurt yourself or someone else? Patient reports no desire to harm self or others. 19:36 Method Of Arrival: EMS: [facility] 19:36 Acuity: HOLLEY 3 5 23:16 Onset of symptoms was August 16, 2022. kd3 Triage Assessment: 19:37 General: Appears uncomfortable, obese, Behavior is calm, cooperative, appropriate for 3 age. Pain: Complains of pain in abdomen. GI: Reports upper abdominal pain, cramping. 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 - Social history:: Smoking status: Patient reports the use of cigarette tobacco products. Screenin:49 Abuse screen: Denies threats or abuse. Denies injuries from another. Nutritional kd3 screening: No deficits noted. Tuberculosis screening: No symptoms or risk factors identified. Fall Risk None identified. IV access (20 points). Assessment: 20:58 General: Appears in no apparent distress. Behavior is calm, cooperative. kd3 21:49 GI: Bowel sounds present X 4 quads. Abd is soft X 4 quads. kd3 21:49 Reassessment: Pt reports eating bad turkey on a sandwich, which then made her sick. kd3 Pain: Complains of pain in epigastric area. Neuro: Level of Consciousness is awake, alert, obeys commands, Oriented to person, place, time, situation. Cardiovascular: Patient's skin is warm and dry. Respiratory: Airway is patent Trachea midline Respiratory effort is even, unlabored, Respiratory pattern is regular, symmetrical. Vital Signs: 19:36 BP 130 / 80; Pulse 86; Resp 18; Temp 99.0; Pulse Ox 98% on R/A; Weight 99.79 kg; Height [facility] 5 ft. 4 in. (162.56 cm); Pain 9/10; 20:58 BP 124 / 92; Pulse 85; Resp 16; Pulse Ox 100% on R/A; kd3 23:15 BP 114 / 65; Pulse 95; Resp 16; Pulse Ox 98% on R/A; kd3 23:39 BP 115 / 75; Pulse 72; Resp 19; Pulse Ox 98% on R/A; kd3 19:36 Body Mass Index 37.76 (99.79 kg, 162.56 cm) [facility] ED Course: 19:28 Patient arrived in ED. jj6 19:37 Triage completed. jh5 19:37 Arm band placed on right wrist. EKG completed in triage. Results shown to . 5 19:42 Young Burgos PA is PHCP. cp 19:42 Young Hernandez MD is Attending Physician. cp 20:15 Anselmo Crandall, ABDULLAHI is Primary Nurse. as6 21:05 Lipase Sent. kd3 21:05 CMP Sent. kd3 21:40 Abdomen In Process Unspecified. EDMS 21:49 Patient has correct armband on for positive identification. kd3 21:49 Inserted saline lock: 18 gauge in left antecubital area, using aseptic technique. Blood kd3 collected. 23:16 No provider procedures requiring assistance completed. kd3 23:39 IV discontinued, intact, bleeding controlled, No redness/swelling at site. Pressure kd3 dressing applied. Administered Medications: 21:20 Drug: Dicyclomine 20 mg Route: IM; Site: right ventrogluteal; kd3 23:40 Follow up: Response: No adverse reaction; Pain is decreased kd3 21:20 Drug: NS 0.9% 1000 ml Route: IV; Rate: 1 bolus; Site: right antecubital; kd3 23:39 Follow up: Response: No adverse reaction; IV Status: Completed infusion kd3 21:21 Drug: Zofran (Ondansetron) 4 mg Route: IVP; Site: right antecubital; kd3 23:40 Follow up: Response: No adverse reaction; Nausea is decreased kd3 21:21 Drug: Pepcid (famotidine) 20 mg Route: IVP; Site: right antecubital; kd3 23:40 Follow up: Response: No adverse reaction kd3 Medication: 23:16 VIS not applicable for this client. kd3 Outcome: 23:26 Discharge ordered by . cp 23:39 Discharged to home ambulatory. kd3 23:39 Condition: stable 23:39 Discharge instructions given to patient, Instructed on discharge instructions, follow up and referral plans. medication usage, Demonstrated understanding of instructions, follow-up care, medications, Prescriptions given X 2. 23:43 Patient left the ED. kd3 Signatures: Dispatcher [employer] EDMS Young Burgos PA PA cp Jeffries, Jennifer jj6 Daisy Rose RN RN jh5 Anselmo Crandall RN RN as6 Aarti Aquino RN RN kd3
--- NOTE | 2022-08-16 23:27 | EDPHYS ---
Physician Documentation [facility] Name: Linda Rahman Age: 46 yrs Sex: Female : 1975 Arrival Date: 08/16/2022 Time: 19:28 Bed 2 Private MD: ED Physician Young Hernandez HPI: 08/16 20:40 This 46 yrs old Female presents to ER via EMS with complaints of Abdominal cp Pain. 20:40 The patient presents with abdominal pain mid and upper abdomen. cp 20:40 Onset: The symptoms/episode began/occurred today. The symptoms do not radiate. cp 20:40 Associated signs and symptoms: Pertinent positives: vomiting, Pertinent negatives: cp diarrhea, fever, vomiting blood. 20:40 The symptoms are described as crampy. Patient reports abdominal pain and episode of cp vomiting started after eating lunch meat today. MATE SHIP: 19:37 LMP N/A - Irregular menses jh5 Historical: - Allergies: 19:37 Amoxicillin; jh5 19:37 Benadryl; jh5 19:37 Codeine; jh5 19:37 Demerol; jh5 19:37 Geodon; jh5 19:37 Meclizine; jh5 19:37 Tessalon Perles; jh5 - PMHx: 19:37 Anemia; Migraine; Hypothyroidism; Hypertensive disorder; diabetes mellitus; Anxiety; jh5 Asthma; - PSHx: 19:37 tubal ligation; Cholecystectomy; jh5 - Immunization history:: Adult Immunizations up to date. - Social history:: Smoking status: Patient reports the use of cigarette tobacco products. ROS: 20:45 Constitutional: Negative for body aches, chills, fever, poor PO intake. cp 20:45 Respiratory: Negative for cough, shortness of breath, wheezing. cp 20:45 Eyes: Negative for injury, pain, redness, and discharge. cp 20:45 ENT: Negative for drainage from ear(s), ear pain, sore throat, difficulty swallowing, difficulty handling secretions. 20:45 Cardiovascular: Negative for chest pain, palpitations. 20:45 Abdomen/GI: Positive for abdominal pain, nausea and vomiting, Negative for diarrhea, constipation, hematemesis. 20:45 Neuro: Negative for altered mental status, dizziness, headache, weakness. 20:45 All other systems are negative. cp Exam: 20:50 Constitutional: The patient appears in no acute distress, alert, awake, cp non-diaphoretic, non-toxic, well developed, well nourished, obese, uncomfortable. 20:50 Head/Face: Normocephalic, atraumatic. cp 20:50 Eyes: Periorbital structures: appear normal, Conjunctiva: normal, no exudate, no injection, Sclera: no appreciated abnormality, Lids and lashes: appear normal, bilaterally. 20:50 ENT: External ear(s): are unremarkable, Nose: is normal, Mouth: Lips: moist, Oral mucosa: pink and intact, moist, Posterior pharynx: Airway: no evidence of obstruction, patent, swelling, is not appreciated, erythema, is not appreciated. 20:50 Chest/axilla: Inspection: normal, Palpation: is normal, no crepitus, no tenderness. 20:50 Cardiovascular: Rate: normal, Rhythm: regular, Edema: is not appreciated, JVD: is not appreciated. 20:50 Respiratory: the patient does not display signs of respiratory distress, Respirations: normal, no use of accessory muscles, no retractions, labored breathing, is not present, Breath sounds: are clear throughout, no decreased breath sounds, no stridor, no wheezing. 20:50 Abdomen/GI: Inspection: obese Bowel sounds: active, all quadrants, Palpation: soft, in all quadrants, moderate abdominal tenderness, in the epigastric area, right upper quadrant and left upper quadrant, rebound tenderness, is not appreciated, involuntary guarding, is not appreciated. 20:50 Back: pain, is absent, ROM is normal. 20:50 Neuro: Orientation: to person, place \T\ time. Mentation: is normal. Vital Signs: 19:36 BP 130 / 80; Pulse 86; Resp 18; Temp 99.0; Pulse Ox 98% on R/A; Weight 99.79 kg; Height jh5 5 ft. 4 in. (162.56 cm); Pain 9/10; 20:58 BP 124 / 92; Pulse 85; Resp 16; Pulse Ox 100% on R/A; kd3 23:15 BP 114 / 65; Pulse 95; Resp 16; Pulse Ox 98% on R/A; kd3 23:39 BP 115 / 75; Pulse 72; Resp 19; Pulse Ox 98% on R/A; kd3 19:36 Body Mass Index 37.76 (99.79 kg, 162.56 cm) [facility] MDM: 19:42 Patient medically screened. cp 23:25 Data reviewed: vital signs, nurses notes, lab test result(s), radiologic studies, CT cp scan. 23:25 Special discussion: Based on the patient's Hx, exam, and Dx evaluation, there is no cp indication for emergent surgery or inpatient Tx. It is understood by the patient/guardian that if the Sx's persist or worsen they need to return immediately for re-evaluation. 08/16 20:33 Order name: CBC with Diff cp 08/16 20:33 Order name: CMP cp 08/16 20:33 Order name: Lipase cp 08/16 20:33 Order name: Urine Microscopic Only cp 08/16 21:10 Order name: Urine --Ancillary (enter results) mw2 08/16 21:10 Order name: Urine Dipstick-Ancillary EDCA 08/16 20:33 Order name: IV Saline Lock; Complete Time: 20:37 cp 08/16 20:34 Order name: CT Abd/Pelvis - IV Contrast Only 08/16 20:38 Order name: Abdomen EDMS 08/16 22:08 Order name: Urine Culture EDCA 08/16 20:33 Order name: Labs collected and sent; Complete Time: 20:37 cp 08/16 20:33 Order name: Urine Dipstick-Ancillary (obtain specimen); Complete Time: 21:21 cp 08/16 20:33 Order name: Urine Test (obtain specimen); Complete Time: 21:21 cp Administered Medications: 21:20 Drug: Dicyclomine 20 mg Route: IM; Site: right ventrogluteal; kd3 23:40 Follow up: Response: No adverse reaction; Pain is decreased kd3 21:20 Drug: NS 0.9% 1000 ml Route: IV; Rate: 1 bolus; Site: right antecubital; kd3 23:39 Follow up: Response: No adverse reaction; IV Status: Completed infusion kd3 21:21 Drug: Zofran (Ondansetron) 4 mg Route: IVP; Site: right antecubital; kd3 23:40 Follow up: Response: No adverse reaction; Nausea is decreased kd3 21:21 Drug: Pepcid (famotidine) 20 mg Route: IVP; Site: right antecubital; kd3 23:40 Follow up: Response: No adverse reaction kd3 Disposition Summary: 08/16/22 23:26 Discharge Ordered Location: Home cp Problem: new cp Symptoms: have improved cp Condition: Stable cp Diagnosis - Abdominal pain, unspecified cp - Nausea with vomiting, unspecified cp Followup: cp - With: Private Physician - When: 1 - 2 days - Reason: Worsening of condition Discharge Instructions: - Discharge Summary Sheet cp - Abdominal Pain, Adult cp - Nausea and Vomiting, Adult cp Forms: - Medication Reconciliation Form cp - Thank You Letter cp - Antibiotic Education cp - Prescription Opioid Use cp Prescriptions: - Zofran 4 mg Oral Tablet - take 1 tablet by ORAL route every 12 hours As needed; 20 tablet; Refills: 0, cp Product Selection Permitted - dicyclomine 20 mg Oral Tablet - take 1 tablet by ORAL route 4 times per day; 30 tablet; Refills: 0, Product cp Selection Permitted Addendum: 08/17/2022 23:44 Addendum: Discussed results of CT abdomen/pelvis showing cervix concerns and c p recommendation of PAP. Patient instructed on need for f/u and given copy of CT report. Signatures: Dispatcher [employer] EDMS Young Burgos PA PA cp Rees, Jessica RN RN jh5 Aarti Aquino RN RN kd3 Corrections: (The following items were deleted from the chart) 23:19 08/16 20:40 Associated signs and symptoms: Pertinent positives: diarrhea, vomiting, cp cp
[2022-08-17 00:12] VITALS: TEMP 99
[2022-08-17 00:14] VITALS: O2SAT 98
[2022-08-17 00:15] VITALS: BP 115/75
== END 2022-08-16 23:43 | disposition home or self-care (01) ==
LOC: ER 19:12
DX: R10.10 Upper abdominal pain, unspecified (principal); R11.2 Nausea with vomiting, unspecified; Z88.1 Allergy status to other antibiotic agents; Z88.5 Allergy status to narcotic agent; Z88.8 Allergy status to other drugs, medicaments and biological substances; Z72.0 Tobacco use
CPT/HCPCS: 87088; 85025; 87086; 36415; 81025; 83690; 80053; 74177; Q9967; J0500; J7030; J2405; 81003; 81015; 96361; 96372; 96374; 96375; 99284

== ENCOUNTER 2022-08-24 23:11 | Emergency (ER) | payer OTHER ==
--- OUTSIDE RECORDS SUMMARY | 2022-08-24 23:37 | XMS REPORT | Continuity of Care Document ---
:1975 Author Organization [facility] t Address [address] [place] [address] Care Team Providers Name Role Phone Tray Jolly MD Primary Care Physician [phone] CECILE MÁRQUEZ Attending Clinician Unavailable TRAY JOLLY Attending Clinician Unavailable GREG JACKSON Attending Clinician Unavailable MARIBEL TINSLEY Attending Clinician Unavailable ARNOLDO ELIZABETH Attending Clinician Unavailable Tray Jolly MD Attending Clinician Andrea Paula MD Attending Clinician MATEO HINTON Attending Clinician Unavailable STELLA WORLEY Attending Clinician Unavailable STELLA WORLEY Attending Clinician Unavailable Doctor Unassigned, [place] Attending Clinician Unavailable Cecile Márquez MD Attending Clinician Nurse, Ry Carbajal Attending Clinician Unavailable SANJAY SÁNCHEZ Attending Clinician Unavailable CLAU AGUILAR Attending Clinician Unavailable VIK OLIVEIRA Attending Clinician Unavailable Atul HOLLINS, Ricardo K.H. Attending Clinician ISAC BARR Attending Clinician Unavailable Sheri Berrios MD Attending Clinician SHERI BERRIOS Attending Clinician Unavailable Destiny Oneill MD Attending Clinician DESTINY ONEILL Attending Clinician Unavailable Vik Oliveira MD Attending Clinician CAPRICE HENRIQUEZ Attending Clinician Unavailable Young Zarate RN Attending Clinician Unavailable NAV ANTONIO Attending Clinician Unavailable Isac Barney S Attending Clinician Wil HOLLINS, Mateo العراقي Attending Clinician Reji HOLLINS, Arnoldo Attending Clinician Jessie [facility], Genesis Shah Attending Clinician GABRIELLA SALAS Attending Clinician Unavailable ANDREA PAULA Attending Clinician Unavailable Scot [facility], Vik Fleming Attending Clinician Sanjay Sánchez NP Attending Clinician Corry Woodall Attending Clinician CORRY [...] Clinician Unavailable Cecile Márquez MD Admitting Clinician HINTONMATEO CLARKE Admitting Clinician Unavailable DESTINY ONEILL Admitting Clinician Unavailable Eladia Admitting Clinician Unavailable CAPRICE HENRIQUEZ Admitting Clinician Unavailable Payers Payer Name Policy Type Policy Number Effective Date Expiration Date S ewa [facility] D[facility] [id number] 2021 COMP CHOICE PPO 00:00:00 DSNP [facility] STAR PLUS [id number] 2021 00:00:00 MEDICAID [facility] [id number] 2016 00:00:00 [facility] HEALTH DAY8 2021 (MEDICARE 00:00:00 REPLACEMENT HMO) [employer] [id number] 2020 BEHAVIORAL 00:00:00 SOLUTIONS Problems Condition Condition [...] Added automatic ally from request for surgery [id number] Chronic Chronic Disease Active Overview: Univ ers superficia superficia 4-05 Formattin ity of l l 00:00: g of this [place] gastritis gastritis 00 note Medi cipriano without without might be Branch bleeding bleeding different from the original. 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 Added automatic ally from request for surgery [id number] Indigestio Indigestio Disease Active 2020-09 Overview : Univers n n 2-15 Formattin ity of 00:00: g of this note Medical might be Branch different from the original. Added automatic ally from request for surgery [id number] Bloating Bloating Disease Active 2020-09 Overview: Un jerrod 2-15 Formattin ity of 00:00: g of this note Medical might be Branch different from the original. Added automatic ally from request for surgery [id number] Dental Dental Disease Active Univers caries caries [...] Disease Active Univers 7-10 ity of 00:00: [place] [facility] Twitching Twitching Disease Active Uni vers 7-10 ity of 00:00: [place] [facility] Asthma, Asthma, Disease Active Univers mild mild 5-23 ity of persistent persistent 00:00: [place] [facility] Fatty Fatty Disease Active Univers liver liver 3-24 ity of 00:00: [place] [facility] Hepatomega Hepatomega Disease Active U nivers ly ly 3-24 ity of 00:00: [place] [facility] Obesity Obesity Disease Active Univers (BMI (BMI 2-12 ity of 30-39.9) 30-39.9) 00:00: [place] [facility] Sinus Sinus Disease Active Univers tachycardi tachycardi 1-02 it y of a a 00:00: [place] [facility] Dyslipidem Dyslipidem Disease Active 2015-09 U nivers ia ia 1-22 ity of 00:00: [place] [facility] Vitamin Vitamin Disease Active 2015-09 Univers B12 B12 1-10 ity of deficiency deficiency 00:00: [place] [facility] 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 6-09 ity of 00:00: [place] 00 Medical Branch Abnormal Abnormal Disease Active Unive rs uterine uterine 5-23 ity of bleeding bleeding 00:00: [place] [facility] Submucous Submucous Disease Active Uni [...] benign on, benign 00:00[place] [facility] Branch Well woman Well woman Disease Active U nivers exam exam 2-05 ity of 00:00: [place] 00 Medical Branch Chest pain Chest pain Disease Active U nivers 9-13 ity of 00:00: [place] 00 Medical Branch Peripheral Peripheral Disease Active U nivers neuropathy neuropathy it y of [facility] 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 ity of [facility] PCOS PCOS Disease Active Univers (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) [facility] Allergies, Adverse Reactions, Alerts Allergy Allergy Status Severity Reaction(s) Onset Inactive Treating Comm ents Source Name Type Date Date Clinician Milk Propensi Active Other - See sneeze Uni vers ty to comments 8-14 ity of adverse 00:00: [place] reaction [facility] Branch MILK DRUG Active Other-Cmnt Univer s [...] ity of adverse 00:00: [place] reaction 00 [facility] Branch CODEINE DRUG Active Low ITCHING Univers [...] Medical Branch AMOXICIL DRUG Active Med Hives 2015-0 Univers FRANCA INGREDI 9-04 ity of 00:00: [place] 00 Medical [place] Social History Social Habit Start Date Stop Date Quantity Comments Source Exposure to 2022-08-14 2022-08-24 Not sure University of SARS-CoV-2 (event) 00:00:00 08:29:00 [facility] Tobacco Comment 2022-06-17 2022-06-17 10 years ago Univers ity of 00:00:00 00:00:00 [facility] Cigarettes smoked 2022-06-17 2022-06-17 Univers ity of current (pack per 00:00:00 00:00:00 ) - Reported Branch Cigarette 2022-06-17 2022-06-17 University of pack-years 00:00:00 00:00:00 [facility] Tobacco use and 2022-06-17 2022-06-17 Smokeless Universit y of exposure 00:00:00 00:00:00 tobacco non-user [facility] Alcohol intake 2022-06-17 2022-06-17 0 /d University 00:00:00 00:00:00 [facility] History of tobacco 1982-10-20 2007-10-20 Cigarette Smoker University of use 00:00:00 00:00:00 [facility] Sex [birth year] At [birth year] Universit y of 00:00:00 00:00:00 [facility] Smoking Status Start Date Stop Date Source Ex-smoker 2022-06-17 00:00:00 2022-06-17 00:00:00 [facility] Medications Ordered Filled Start Stop Current Ordering Indication Dosage Frequency Signature Comments Components Source Medication Medication Date Date Medication? Clinician (SIG) Name Name levothyroxi 2021-09 Yes [id number] 50ug Take 1 Univers ne 50 mcg 1-03 tablet by ity o f tablet 00:00: mouth [place] 00 every Medical morning. Branch levothyroxi 2021-09 Yes [id number] 50ug Take 1 Univers ne 50 mcg 1-03 tablet by ity o f tablet 00:00: mouth [place] 00 every Medical morning. Branch levothyroxi 2021-09 Yes [id number] 50ug Take 1 Univers ne 50 mcg 1-03 tablet by ity o f tablet 00:00: mouth [place] 00 every Medical morning. Branch levothyroxi 2021-09 Yes [id number] 50ug Take 1 Univers ne 50 mcg 1-03 tablet by ity o f tablet 00:00: mouth [place] 00 every Medical morning. Branch levothyroxi 2021-09 Yes [id number] 50ug Take 1 Univers ne 50 mcg 1-03 tablet by ity o f tablet 00:00: mouth [place] 00 every Medical morning. Branch levothyroxi 2021-09 Yes [id number] 50ug Take 1 Univers ne 50 mcg 1-03 tablet by ity o f tablet 00:00: mouth [place] 00 every Medical morning. Branch DOCUSATE 2021-09 [address] Take [address] [facility] s SODIUM 1-01 mouth. ity of (COLACE 08:06: [place] ORAL) 37 Medical Branch DOCUSATE 2021-09 Yes [facility] mouth. ity of (COLACE 08:06: [place] ORAL) 37 Medical Branch DOCUSATE 2021-09 Yes [facility] SODIUM 1- mouth. ity of (COLACE 08:06: [place] ORAL) 37 Medical Branch DOCUSATE 2021-09 Yes [facility] SODIUM 1- mouth. ity of (COLACE 08:06: [place] ORAL) 37 Medical Branch DOCUSATE 2021-[address] [facility] s SODIUM 1- mouth. ity of (COLACE 08:06: [place] ORAL) 37 Medical Branch DOCUSATE 2021-[address] [facility] s SODIUM 1- mouth. ity of (COLACE 08:06: [place] ORAL) 37 Medical Branch DOCUSATE 2021-09 Yes [facility] SODIUM 1- mouth. ity of (COLACE 08:06: [place] ORAL) 37 Medical Branch DOCUSATE 2021-09 Yes [facility] SODIUM 1- mouth. ity of (COLACE 08:06: [place] ORAL) 37 Medical Branch DOCUSATE 2021-[address] [facility] s SODIUM 1- mouth. ity of (COLACE 08:06: [place] ORAL) Medical Branch diltiazem 2021-09 Yes [id number] 120mg Take 1 U nivers 120 mg 24 1- capsule by ity of hr capsule 00:00: mouth in [place] 00 the Medical morning Branch and 1 capsule in the evening. fluticasone 2021-09 Yes [id number] 2{puff} Inhale 2 Univers propionate 1-01 Puffs ity of (FLOVENT 00:00: every 12 [place] HFA) 110 00 (twelve) Medical mcg/actuati hours. Branch on inhaler Rinse mouth after each use. levothyroxi 2021-09 Yes [id number] 50ug Take 1 Univers ne 50 mcg 1-01 tablet by ity o f tablet 00:00: mouth [place] 00 every Medical morning. Branch metformin 2021-09 Yes [id number] 500mg Take 1 U nivers ER 500 mg 1-01 tablet by ity o f 24 hr 00:00: mouth [place] tablet 00 daily with Medical breakfast. Branch pantoprazol 2021-09 Yes [id number] 40mg Take 1 Univers e 40 mg EC 1-01 tablet by ity of tablet 00:00: mouth in [place] 00 the Medical morning. Branch pregabalin 2021-09 Yes [id number] 150mg Take 1 Univers 150 mg 1-01 capsule by ity of capsule 00:00: mouth in [place] 00 the Medical morning Branch and 1 capsule at noon and 1 capsule in the evening. rosuvastati 2021-09 Yes [id number] 10mg Take 1 Univers n 10 mg 1-01 tablet by ity of tablet 00:00: mouth at [place] 00 bedtime. Medical Branch SUMAtriptan 2021-09 Yes [id number] 50mg Take 1 Univers 50 mg 1-01 tablet by ity of tablet 00:00: mouth as [place] 00 needed for Medical Migraine. Branch diltiazem 2021-09 Yes [id number] 120mg Take 1 U nivers 120 mg 24 1- capsule by ity of hr capsule 00:00: mouth in [facility] as 00 the Medical morning Branch and 1 capsule in the evening. fluticasone 2021-09 Yes [id number] 2{puff} Inhale 2 Univers propionate 1-01 Puffs ity of (FLOVENT 00:00: every 12 [place] HFA) 110 00 (twelve) Medical mcg/actuati hours. Branch on inhaler Rinse mouth after each use. levothyroxi 2021-09 Yes [id number] 50ug Take 1 Univers ne 50 mcg 1-01 tablet by ity o f tablet 00:00: mouth [place] 00 every Medical morning. Branch metformin 2021-09 Yes [id number] 500mg Take 1 U nivers ER 500 mg 1-01 tablet by ity o f 24 hr 00:00: mouth [place] tablet 00 daily with Medical breakfast. Branch pantoprazol 2021-09 Yes [id number] 40mg Take 1 Univers e 40 mg EC 1-01 tablet by ity of tablet 00:00: mouth in [place] 00 the Medical morning. Branch pregabalin 2021-09 Yes [id number] 150mg Take 1 Univers 150 mg 1-01 capsule by ity of capsule 00:00: mouth in [place] 00 the Medical morning Branch and 1 capsule at noon and 1 capsule in the evening. rosuvastati 2021-09 Yes [id number] 10mg Take 1 Univers n 10 mg 1-01 tablet by ity of tablet 00:00: mouth at [place] [address] bedtime. Medical Branch SUMAtriptan 2021-09 Yes [id number] 50mg Take 1 Univers 50 mg 1-01 tablet by ity of tablet 00:00: mouth as [place] 00 needed for Medical Migraine. Branch diltiazem 2021-09 Yes [id number] 120mg Take 1 U nivers 120 mg 24 1-01 capsule by ity of hr capsule 00:00: mouth in [place] 00 the Medical morning Branch and 1 capsule in the evening. fluticasone 2021-09 Yes [id number] 2{puff} Inhale 2 Univers propionate 1-01 Puffs ity of (FLOVENT 00:00: every 12 [place] HFA) 110 00 (twelve) Medical mcg/actuati hours. Branch on inhaler Rinse mouth after each use. metformin 2021-09 Yes [id number] 500mg Take 1 U nivers ER 500 mg 1-01 tablet by ity o f 24 hr 00:00: mouth [place] tablet 00 daily with Medical breakfast. Branch pantoprazol 2021-09 Yes [id number] 40mg Take 1 Univers e 40 mg EC 1-01 tablet by ity of tablet 00:00: mouth in [place] 00 the Medical morning. Branch pregabalin 2021-09 Yes [id number] 150mg Take 1 Univers 150 mg 1-01 capsule by ity of capsule 00:00: mouth in [place] 00 the Medical morning Branch and 1 capsule at noon and 1 capsule in the evening. rosuvastati 2021-09 Yes [id number] 10mg Take 1 Univers n 10 mg 1-01 tablet by ity of tablet 00:00: mouth at [place] [address] bedtime. Medical Branch SUMAtriptan 2021-09 Yes [id number] 50mg Take 1 Univers 50 mg 1-01 tablet by ity of tablet 00:00: mouth as [place] 00 needed for Medical Migraine. Branch diltiazem 2021-09 Yes [id number] 120mg Take 1 U nivers 120 mg 24 1-01 capsule by ity of hr capsule 00:00: mouth in [place] 00 the Medical morning Branch and 1 capsule in the evening. fluticasone 2021-09 Yes [id number] 2{puff} Inhale 2 Univers propionate 1-01 Puffs ity of (FLOVENT 00:00: every 12 [place] HFA) 110 00 (twelve) Medical mcg/actuati hours. Branch on inhaler Rinse mouth after each use. metformin 2021-09 Yes [id number] 500mg Take 1 U nivers ER 500 mg 1-01 tablet by ity o f 24 hr 00:00: mouth [place] tablet 00 daily with Medical breakfast. Branch pantoprazol 2021-09 Yes [id number] 40mg Take 1 Univers e 40 mg EC 1-01 tablet by ity of tablet 00:00: mouth in [place] 00 the Medical morning. Branch pregabalin 2021-09 Yes [id number] 150mg Take 1 Univers 150 mg 1-01 capsule by ity of capsule 00:00: mouth in [place] 00 the Medical morning Branch and 1 capsule at noon and 1 capsule in the evening. rosuvastati 2021-09 Yes [id number] 10mg Take 1 Univers n 10 mg 1-01 tablet by ity of tablet 00:00: mouth at [place] 00 bedtime. Medical Branch SUMAtriptan 2021-09 Yes [id number] 50mg Take 1 Univers 50 mg 1-01 tablet by ity of tablet 00:00: mouth as [place] 00 needed for Medical Migraine. Branch diltiazem 2021-09 Yes [id number] 120mg Take 1 U nivers 120 mg 24 1-01 capsule by ity of hr capsule 00:00: mouth in [place] 00 the Medical morning Branch and 1 capsule in the evening. fluticasone 2021-09 Yes [id number] 2{puff} Inhale 2 Univers propionate 1-01 Puffs ity of (FLOVENT 00:00: every 12 [place] HFA) 110 00 (twelve) Medical mcg/actuati hours. Branch on inhaler Rinse mouth after each use. metformin 2021-09 Yes [id number] 500mg Take 1 U nivers ER 500 mg 1-01 tablet by ity o f 24 hr 00:00: mouth [place] tablet 00 daily with Medical breakfast. Branch pantoprazol 2021-09 Yes [id number] 40mg Take 1 Univers e 40 mg EC 1-01 tablet by ity of tablet 00:00: mouth in [place] 00 the Medical morning. Branch pregabalin 2021-09 Yes [id number] 150mg Take 1 Univers 150 mg 1-01 capsule by ity of capsule 00:00: mouth in [place] 00 the Medical morning Branch and 1 capsule at noon and 1 capsule in the evening. rosuvastati 2021-09 Yes [id number] 10mg Take 1 Univers n 10 mg 1-01 tablet by ity of tablet 00:00: mouth at [place] 00 bedtime. Medical Branch SUMAtriptan 2021-09 Yes [id number] 50mg Take 1 Univers 50 mg 1-01 tablet by ity of tablet 00:00: mouth as [place] 00 needed for Medical Migraine. Branch diltiazem 2021-09 Yes [id number] 120mg Take 1 U nivers 120 mg 24 1-01 capsule by ity of hr capsule 00:00: mouth in [facility] as 00 the Medical morning Branch and 1 capsule in the evening. fluticasone 2021-09 Yes [id number] 2{puff} Inhale 2 Univers propionate 1-01 Puffs ity of (FLOVENT 00:00: every 12 [place] HFA) 110 00 (twelve) Medical mcg/actuati hours. Branch on inhaler Rinse mouth after each use. metformin 2021-09 Yes [id number] 500mg Take 1 U nivers ER 500 mg 1-01 tablet by ity o f 24 hr 00:00: mouth [place] tablet 00 daily with Medical breakfast. Branch pantoprazol 2021-09 Yes [id number] 40mg Take 1 Univers e 40 mg EC 1-01 tablet by ity of tablet 00:00: mouth in [place] 00 the Medical morning. Branch pregabalin 2021-09 Yes [id number] 150mg Take 1 Univers 150 mg 1-01 capsule by ity of capsule 00:00: mouth in [place] 00 the Medical morning Branch and 1 capsule at noon and 1 capsule in the evening. rosuvastati 2021-09 Yes [id number] 10mg Take 1 Univers n 10 mg 1-01 tablet by ity of tablet 00:00: mouth at [place] [address] bedtime. Medical Branch SUMAtriptan 2021-09 Yes [id number] 50mg Take 1 Univers 50 mg 1-01 tablet by ity of tablet 00:00: mouth as [place] 00 needed for Medical Migraine. Branch diltiazem 2021-09 Yes [id number] 120mg Take 1 U nivers 120 mg 24 1-01 capsule by ity of hr capsule 00:00: mouth in [facility] as 00 the Medical morning Branch and 1 capsule in the evening. fluticasone 2021-09 Yes [id number] 2{puff} Inhale 2 Univers propionate 1-01 Puffs ity of (FLOVENT 00:00: every 12 [place] HF) 110 00 (twelve) Medical mcg/actuati hours. Branch on inhaler Rinse mouth after each use. metformin 2021-09 Yes [id number] 500mg Take 1 U nivers ER 500 mg 1-01 tablet by ity o f 24 hr 00:00: mouth [place] tablet 00 daily with Medical breakfast. Branch pantoprazol 2021-09 Yes [id number] 40mg Take 1 Univers e 40 mg EC 1-01 tablet by ity of tablet 00:00: mouth in [place] 00 the Medical morning. Branch pregabalin 2021-09 Yes [id number] 150mg Take 1 Univers 150 mg 1-01 capsule by ity of capsule 00:00: mouth in [place] 00 the Medical morning Branch and 1 capsule at noon and 1 capsule in the evening. rosuvastati 2021-09 Yes [id number] 10mg Take 1 Univers n 10 mg 1-01 tablet by ity of tablet 00:00: mouth at [place] [address] bedtime. Medical Branch SUMAtriptan 2021-09 Yes [id number] 50mg Take 1 Univers 50 mg 1-01 tablet by ity of tablet 00:00: mouth as [place] 00 needed for Medical Migraine. Branch diltiazem 2021-09 Yes [id number] 120mg Take 1 U nivers 120 mg 24 1-01 capsule by ity of hr capsule 00:00: mouth in [facility] as 00 the Medical morning Branch and 1 capsule in the evening. fluticasone 2021-09 Yes [id number] 2{puff} Inhale 2 Univers propionate 1-01 Puffs ity of (FLOVENT 00:00: every 12 [place] HFA) 110 00 (twelve) Medical mcg/actuati hours. Branch on inhaler Rinse mouth after each use. metformin 2021-09 Yes [id number] 500mg Take 1 U nivers ER 500 mg 1-01 tablet by ity o f 24 hr 00:00: mouth [place] tablet 00 daily with Medical breakfast. Branch pantoprazol 2021-09 Yes [id number] 40mg Take 1 Univers e 40 mg EC 1-01 tablet by ity of tablet 00:00: mouth in [place] 00 the Medical morning. Branch pregabalin 2021-09 Yes [id number] 150mg Take 1 Univers 150 mg 1-01 capsule by ity of capsule 00:00: mouth in [place] 00 the Medical morning Branch and 1 capsule at noon and 1 capsule in the evening. rosuvastati 2021-09 Yes [id number] 10mg Take 1 Univers n 10 mg - tablet by ity of tablet 00:00: mouth at [place] 00 bedtime. Medical Branch SUMAtriptan 2021-09 Yes [id number] 50mg Take 1 Univers 50 mg - tablet by ity of tablet 00:00: mouth as [place] 00 needed for Medical Migraine. Branch levothyroxi 2021-09- No [id number] 50ug Take 1 Univers ne 50 mcg 09-26 tablet by ity of tablet 00:00: 00:00 mouth [place] 00 :00 every Medical morning. Branch levothyroxi 2021-09- No [id number] 50ug Take 1 Univers ne 50 mcg 09-26 tablet by ity of tablet 00:00: 00:00 mouth [place] 00 :00 every Medical morning. Branch busPIRone 2021-09 Yes [id number] 20mg Take 2 Un [place] 10 mg 0-13 tablets by ity of tablet 00:00: mouth in [place] 00 the Medical morning Branch and 2 tablets in the evening. diltiazem 2021-09 Yes [id number] 120mg Take 1 U nivers 120 mg 24 0-13 capsule by ity of hr capsule 00:00: mouth in [facility] as 00 the Medical morning Branch and 1 capsule in the evening. levothyroxi 2021-09 Yes [id number] 50ug Take 1 Univers ne 50 mcg 0-13 tablet by ity o f tablet 00:00: mouth [place] 00 every Medical morning. Branch losartan 50 2021-09 Yes [id number] 50mg Take 1 Univers mg tablet 0-13 tablet by ity o f 00:00: mouth in [place] 00 the Medical morning Branch and 1 tablet in the evening. metformin 2021-09 Yes [id number] 500mg Take 1 U nivers ER 500 mg 0-13 tablet by ity o f 24 hr 00:00: mouth [place] tablet 00 daily with Medical breakfast. Branch STOP REGULAR METFORMIN. mirabegron 2021-09 Yes [id number] 50mg Take 1 Univers (MYRBETRIQ) 0-13 tablet by ity of 50 mg 00:00: mouth in [place] tablet 00 the Medical morning. Branch semaglutide 2021-09 Yes [id number] Inject Univers (OZEMPIC) 0-13 0.25 mg ity of 0.25 mg or 00:00: under the [place] 0.5 mg(2 00 skin Medical mg/1.5 mL) weekly. Branch PnIj pantoprazol 2021-09 Yes [id number] 40mg Take 1 Univers e 40 mg EC 0-13 tablet by ity of tablet 00:00: mouth in [place] 00 the Medical morning. Branch pregabalin 2021-09 Yes [id number] 150mg Take 1 Univers 150 mg 0-13 capsule by ity of capsule 00:00: mouth in [place] 00 the Medical morning Branch and 1 capsule at noon and 1 capsule in the evening. rosuvastati 2021-09 Yes [id number] 10mg Take 1 Univers n 10 mg 0-13 tablet by ity of tablet 00:00: mouth at [place] 00 bedtime. Medical Branch SUMAtriptan 2021-09 Yes [id number] 50mg Take 1 Univers 50 mg 0-13 tablet by ity of tablet 00:00: mouth as [place] 00 needed for Medical Migraine. Branch topiramate 2021-09 Yes [id number] 75mg Take 3 Univers 25 mg 0-13 tablets by ity of tablet 00:00: mouth in [place] 00 the Medical morning Branch and 3 tablets in the evening. busPIRone 2021-09 Yes [id number] 20mg Take 2 Un jer[place] 10 mg 0-13 tablets by ity of tablet 00:00: mouth in [place] 00 the Medical morning Branch and 2 tablets in the evening. losartan 50 2021-09 Yes [id number] 50mg Take 1 Univers mg tablet 0-13 tablet by ity o f 00:00: mouth in [place] 00 the Medical morning Branch and 1 tablet in the evening. mirabegron 2021-09 Yes [id number] 50mg Take 1 Univers (MYRBETRIQ) 0-13 tablet by ity of 50 mg 00:00: mouth in [place] tablet 00 the Medical morning. Branch semaglutide 2021-09 Yes [id number] Inject Univers (OZEMPIC) 0-13 0.25 mg ity of 0.25 mg or 00:00: under the [place] 0.5 mg(2 00 skin Medical mg/1.5 mL) weekly. Branch PnIj topiramate 2021-09 Yes [id number] 75mg Take 3 Univers 25 mg 0-13 tablets by ity of tablet 00:00: mouth in [place] 00 the Medical morning Branch and 3 tablets in the evening. busPIRone 2021-09 Yes [id number] 20mg Take 2 Un [place] 10 mg 0-13 tablets by ity of tablet 00:00: mouth in [place] 00 the Medical morning Branch and 2 tablets in the evening. losartan 50 2021-09 Yes [id number] 50mg Take 1 Univers mg tablet 0-13 tablet by ity o f 00:00: mouth in [place] 00 the Medical morning Branch and 1 tablet in the evening. mirabegron 2021-09 Yes [id number] 50mg Take 1 Univers (MYRBETRIQ) 0-13 tablet by ity of 50 mg 00:00: mouth in [place] tablet 00 the Medical morning. Branch semaglutide 2021-09 Yes [id number] Inject Univers (OZEMPIC) 0-13 0.25 mg ity of 0.25 mg or 00:00: under the [place] 0.5 mg(2 00 skin Medical mg/1.5 mL) weekly. Branch PnIj topiramate 2021-09 Yes [id number] 75mg Take 3 Univers 25 mg 0-13 tablets by ity of tablet 00:00: mouth in [place] 00 the Medical morning Branch and 3 tablets in the evening. busPIRone 2021-09 Yes [id number] 20mg Take 2 Un [place] 10 mg 0-13 tablets by ity of tablet 00:00: mouth in [place] 00 the Medical morning Branch and 2 tablets in the evening. losartan 50 2021-09 Yes [id number] 50mg Take 1 Univers mg tablet 0-13 tablet by ity o f 00:00: mouth in [place] 00 the Medical morning Branch and 1 tablet in the evening. mirabegron 2021-09 Yes [id number] 50mg Take 1 Univers (MYRBETRIQ) 0-13 tablet by ity of 50 mg 00:00: mouth in [place] tablet 00 the Medical morning. Branch semaglutide 2021-09 Yes [id number] Inject [facility] (OZEMPIC) 0-13 0.25 mg ity of 0.25 mg or 00:00: under the [place] 0.5 mg(2 00 skin Medical mg/1.5 mL) weekly. Branch PnIj topiramate 2021-09 Yes [id number] 75mg Take 3 [facility] 25 mg 0-13 tablets by ity of tablet 00:00: mouth in [place] 00 the Medical morning Branch and 3 tablets in the evening. busPIRone 2021-09 Yes [id number] 20mg Take 2 [facility] 10 mg 0-13 tablets by ity of tablet 00:00: mouth in [place] 00 the Medical morning Branch and 2 tablets in the evening. losartan 50 2021-09 Yes [id number] 50mg Take 1 [facility] mg tablet 0-13 tablet by ity o f 00:00: mouth in [place] 00 the Medical morning Branch and 1 tablet in the evening. mirabegron 2021-09 Yes [id number] 50mg Take 1 [facility] (MYRBETRIQ) 0-13 tablet by ity of 50 mg 00:00: mouth in [place] tablet 00 the Medical morning. Branch semaglutide 2021-09 Yes [id number] Inject [facility] (OZEMPIC) 0-13 0.25 mg ity of 0.25 mg or 00:00: under the [place] 0.5 mg(2 00 skin Medical mg/1.5 mL) weekly. Branch PnIj topiramate 2021-09 Yes [id number] 75mg Take 3 [facility] 25 mg 0-13 tablets by ity of tablet 00:00: mouth in [place] 00 the Medical morning Branch and 3 tablets in the evening. busPIRone 2021-09 Yes [id number] 20mg Take 2 [facility] [place] 10 mg 0-13 tablets by ity of tablet 00:00: mouth in [place] 00 the Medical morning Branch and 2 tablets in the evening. losartan 50 2021-09 Yes [id number] 50mg Take 1 [facility] mg tablet 0-13 tablet by ity o f 00:00: mouth in [place] 00 the Medical morning Branch and 1 tablet in the evening. mirabegron 2021-09 Yes [id number] 50mg Take 1 [facility] (MYRBETRIQ) 0-13 tablet by ity of 50 mg 00:00: mouth in [place] tablet 00 the Medical morning. Branch semaglutide 2021-09 Yes [id number] Inject [facility] (OZEMPIC) 0-13 0.25 mg ity of 0.25 mg or 00:00: under the [place] 0.5 mg(2 00 skin Medical mg/1.5 mL) weekly. Branch PnIj topiramate 2021-09 Yes [id number] 75mg Take 3 [facility] 25 mg 0-13 tablets by ity of tablet 00:00: mouth in [place] 00 the Medical morning Branch and 3 tablets in the evening. busPIRone 2021-09 Yes [id number] 20mg Take 2 [facility] [place] 10 mg 0-13 tablets by ity of tablet 00:00: mouth in [place] 00 the Medical morning Branch and 2 tablets in the evening. losartan 50 2021-09 Yes [id number] 50mg Take 1 [facility] mg tablet 0-13 tablet by ity o f 00:00: mouth in [place] 00 the Medical morning Branch and 1 tablet in the evening. mirabegron 2021-09 Yes [id number] 50mg Take 1 [facility] (MYRBETRIQ) 0-13 tablet by ity of 50 mg 00:00: mouth in [place] tablet 00 the Medical morning. Branch semaglutide 2021-09 Yes [id number] Inject [facility] (OZEMPIC) 0-13 0.25 mg ity of 0.25 mg or 00:00: under the [place] 0.5 mg(2 00 skin Medical mg/1.5 mL) weekly. Branch PnIj topiramate 2021-09 Yes [id number] 75mg Take 3 [facility] 25 mg 0-13 tablets by ity of tablet 00:00: mouth in [place] 00 the Medical morning Branch and 3 tablets in the evening. busPIRone 2021-09 Yes [id number] 20mg Take 2 [facility] [place] 10 mg 0-13 tablets by ity of tablet 00:00: mouth in [place] 00 the Medical morning Branch and 2 tablets in the evening. losartan 50 2021-09 Yes [id number] 50mg Take 1 [facility] mg tablet 0-13 tablet by ity o f 00:00: mouth in [place] 00 the Medical morning Branch and 1 tablet in the evening. mirabegron 2021-09 Yes [id number] 50mg Take 1 [facility] (MYRBETRIQ) 0-13 tablet by ity of 50 mg 00:00: mouth in [place] tablet 00 the Medical morning. Branch semaglutide 2021-09 Yes [id number] Inject [facility] (OZEMPIC) 0-13 0.25 mg ity of 0.25 mg or 00:00: under the [place] 0.5 mg(2 00 skin Medical mg/1.5 mL) weekly. Branch PnIj topiramate 2021-09 Yes [id number] 75mg Take 3 [facility] 25 mg 0-13 tablets by ity of tablet 00:00: mouth in [place] 00 the Medical morning Branch and 3 tablets in the evening. busPIRone 2021-09 Yes [id number] 20mg Take 2 [facility] [place] 10 mg 0-13 tablets by ity of tablet 00:00: mouth in [place] 00 the Medical morning Branch and 2 tablets in the evening. losartan 50 2021-09 Yes [id number] 50mg Take 1 [facility] mg tablet 0-13 tablet by ity o f 00:00: mouth in [place] 00 the Medical morning Branch and 1 tablet in the evening. mirabegron 2021-09 Yes [id number] 50mg Take 1 [facility] (MYRBETRIQ) 0-13 tablet by ity of 50 mg 00:00: mouth in [place] tablet 00 the Medical morning. Branch semaglutide 2021-09 Yes [id number] Inject [facility] (OZEMPIC) 0-13 0.25 mg ity of 0.25 mg or 00:00: under the [place] 0.5 mg(2 00 skin Medical mg/1.5 mL) weekly. Branch PnIj topiramate 2021-09 Yes [id number] 75mg Take 3 [facility] 25 mg 0-13 tablets by ity of tablet 00:00: mouth in [place] 00 the Medical morning Branch and 3 tablets in the evening. busPIRone 2021-09 Yes [id number] 20mg Take 2 [facility] [place] 10 mg 0-13 tablets by ity of tablet 00:00: mouth in [place] 00 the Medical morning Branch and 2 tablets in the evening. losartan 50 2021-09 Yes [id number] 50mg Take 1 [facility] mg tablet 0-13 tablet by ity o f 00:00: mouth in [place] 00 the Medical morning Branch and 1 tablet in the evening. mirabegron 2021-09 Yes [id number] 50mg Take 1 [facility] (MYRBETRIQ) 0-13 tablet by ity of 50 mg 00:00: mouth in [place] tablet 00 the Medical morning. Branch semaglutide 2021-09 Yes [id number] Inject [facility] (OZEMPIC) 0-13 0.25 mg ity of 0.25 mg or 00:00: under the [place] 0.5 mg(2 00 skin Medical mg/1.5 mL) weekly. Branch PnIj topiramate 2021-09 Yes [id number] 75mg Take 3 [facility] 25 mg 0-13 tablets by ity of tablet 00:00: mouth in [place] 00 the Medical morning Branch and 3 tablets in the evening. diltiazem 2021-09- No [id number] 120mg Take 1 [facility] 120 mg 24 07-27 capsule by ity of hr capsule 00:00: 00:00 mouth in [place] 00 :00 the Medical morning Branch and 1 capsule in the evening. levothyroxi 2021-09- No [id number] 50ug Take 1 [facility] ne 50 mcg 07-27 tablet by ity of tablet 00:00: 00:00 mouth [place] 00 :00 every Medical morning. Branch metformin 2021-09- No [id number] 500mg Take 1 [facility] ER 500 mg 07-27 tablet by ity of 24 hr 00:00: 00:00 mouth [place] tablet 00 :00 daily with Medical breakfast. Branch STOP REGULAR METFORMIN. pantoprazol 2021-09- No [id number] 40mg Take 1 [facility] e 40 mg EC 07-27 tablet by ity of tablet 00:00: 00:00 mouth in [place] 00 :00 the Medical morning. Branch pregabalin 2021-09- No [id number] 150mg Take 1 [facility] 150 mg 07-27 capsule by ity of capsule 00:00: 00:00 mouth in [place] 00 :00 the Medical morning Branch and 1 capsule at noon and 1 capsule in the evening. rosuvastati 2021-09- No [id number] 10mg Take 1 [facility] n 10 mg 07-27 tablet by ity of tablet 00:00: 00:00 mouth at [place] 00 :00 bedtime. Medical Branch SUMAtriptan 2021-09- No [id number] 50mg Take 1 [facility] 50 mg 07-27 tablet by ity of tablet 00:00: 00:00 mouth as [place] 00 :00 needed for Medical Migraine. Branch diltiazem 2021-09- No [id number] 120mg Take 1 [facility] 120 mg 24 07-27 capsule by ity of hr capsule 00:00: 00:00 mouth in [place] 00 :00 the Medical morning Branch and 1 capsule in the evening. levothyroxi 2021-09- No [id number] 50ug Take 1 [facility] ne 50 mcg 07-27 tablet by ity of tablet 00:00: 00:00 mouth [place] 00 :00 every Medical morning. Branch metformin 2021-09- No [id number] 500mg Take 1 [facility] ER 500 mg 07-27 tablet by ity of 24 hr 00:00: 00:00 mouth [place] tablet 00 :00 daily with Medical breakfast. Branch STOP REGULAR METFORMIN. pantoprazol 2021-09- No [id number] 40mg Take 1 [facility] e 40 mg EC 07-27 tablet by ity of tablet 00:00: 00:00 mouth in [place] 00 :00 the Medical morning. Branch pregabalin 2021-09- No [id number] 150mg Take 1 [facility] 150 mg 07-27 capsule by ity of capsule 00:00: 00:00 mouth in [place] 00 :00 the Medical morning Branch and 1 capsule at noon and 1 capsule in the evening. rosuvastati 2021-09- No [id number] 10mg Take 1 [facility] n 10 mg 07-27 tablet by ity of tablet 00:00: 00:00 mouth at [place] 00 :00 bedtime. Medical Branch SUMAtriptan 2021-09- No [id number] 50mg Take 1 [facility] 50 mg 07-27 tablet by ity of tablet 00:00: 00:00 mouth as [place] 00 :00 needed for Medical Migraine. Branch SUMAtriptan 0 Yes [id number] 50mg Take 1 [facility] 50 mg 9-30 tablet by ity of tablet 00:00: mouth as [place] 00 needed for Medical Migraine. Branch SUMAtriptan 0 Yes [id number] 50mg Take 1 [facility] 50 mg 9-30 tablet by ity of tablet 00:00: mouth as [place] 00 needed for Medical Migraine. Branch SUMAtriptan 2022-0 Yes [id number] 50mg Take 1 [facility] 50 mg 9-30 tablet by ity of tablet 00:00: mouth as [place] 00 needed for Medical Migraine. Branch SUMAtriptan Yes [id number] 50mg Take 1 [facility] 50 mg 9-30 tablet by ity of tablet 00:00: mouth as [place] 00 needed for Medical Migraine. Branch SUMAtriptan Yes [id number] 50mg Take 1 [facility] 50 mg 9-30 tablet by ity of tablet 00:00: mouth as [place] 00 needed for Medical Migraine. Branch SUMAtriptan 2021- No [id number] 50mg Take 1 [facility] 50 mg 9-30 10-13 tablet by ity of tablet 00:00: 00:00 mouth as [place] 00 :00 needed for Medical Migraine. Branch FOLIC ACID Yes Take by [facility] ers ORAL 06-17 mouth ity of 10:41: daily. [place] 15 Medical Branch MULTIVIT Yes [facility] &[facility]/F 06-17 mouth. ity of ERROUS FUM 10:41: [place] (MULTI 15 Medical VITAMIN Branch ORAL) METHYLCELLU Yes [facility] s LOSE (FIBER - ity of THERAPY 10:41: [place] MISC) 15 Medical Branch DOCUSATE Yes Take by [facility] s SODIUM 06-17 mouth. ity of (COLACE [...] Branch unit) tablet CRANBERRY Yes Take by [facility] rs FRUIT - mouth ity of EXTRACT 10:41: daily. [place] (CRANBERRY 15 Medical ORAL) Branch CALCIUM Yes Take by [facility] ORAL - mouth ity of 10:41: daily. [place] 15 Medical Branch DOCOSAHEXAN Yes 1000mg Take 1,000 [facility] OIC 9-22 mg by ity of ACID/EPA 10:41: mouth [place] (FISH OIL 15 daily. Medical ORAL) Branch BIOTIN ORAL Yes Take by [facility] vers 9-22 mouth. ity of 10:41: [place] 15 Medical Branch FOLIC ACID 0 Yes Take by [facility] ers ORAL 9-22 mouth ity of 10:41: daily. [place] 15 Medical Branch MULTIVIT Yes Take by Univer s &MINERALS/F 9-22 mouth. ity of ERROUS FUM 10:41: [place] (MULTI 15 Medical VITAMIN Branch ORAL) METHYLCELLU 0 Yes Univer s LOSE (FIBER 9-22 ity of THERAPY 10:41: [facility]) 15 Medical Branch DOCUSATE Yes Take by Univer s SODIUM - mouth. ity of (COLACE 10:41: [place] ORAL) 15 Medical Branch vitamin C Yes [...] - mouth ity of EXTRACT 10:41: daily. [place] (CRANBERRY 15 Medical ORAL) Branch CALCIUM Yes Take by [facility] ORAL 9-22 mouth ity of 10:41: daily. [place] 15 Medical Branch DOCOSAHEXAN Yes 1000mg Take 1,000 [facility] OIC 9-22 mg by ity of ACID/EPA 10:41: mouth [place] (FISH OIL 15 daily. Medical ORAL) Branch BIOTIN ORAL Yes Take by [facility] vers 9-22 mouth. ity of 10:41: [place] 15 Medical Branch FOLIC ACID 0 Yes Take by [facility] ers ORAL 9-22 mouth ity of 10:41: daily. [place] 15 Medical Branch MULTIVIT 0 Yes Take by Univer s &MINERALS/F 9-22 mouth. ity of ERROUS FUM 10:41: [place] (MULTI 15 Medical VITAMIN Branch ORAL) METHYLCELLU 0 Yes Univer s LOSE (FIBER 9-22 ity of THERAPY 10:41: [facility]) 15 Medical Branch DOCUSATE Yes Take [...] Branch unit) tablet CRANBERRY Yes Take by [employer] rs FRUIT - mouth ity of EXTRACT 10:41: daily. [place] (CRANBERRY 15 Medical ORAL) Branch CALCIUM Yes Take by [facility] ORAL - mouth ity of 10:41: daily. [place] 15 Medical Branch DOCOSAHEXAN Yes 1000mg Take 1,000 [facility] OIC 9-22 mg by ity of ACID/EPA 10:41: mouth [place] (FISH OIL 15 daily. Medical ORAL) Branch BIOTIN ORAL Yes Take by [facility] vers 06-17 mouth. ity of 10:41: [place] [address] Medical Branch FOLIC ACID Yes Take by [facility] ers ORAL - mouth ity of 10:41: daily. [place] 15 Medical Branch MULTIVIT Yes Take by Univer s &MINERALS/F - mouth. ity of ERROUS FUM 10:41: [place] (MULTI 15 Medical VITAMIN Branch ORAL) METHYLCELLU Yes Univer s LOSE (FIBER - ity of THERAPY 10:41: [facility]) 15 Medical Branch DOCUSATE Yes Take [...] CRANBERRY Yes Take by Unive rs FRUIT 9-22 mouth ity of EXTRACT 10:41: daily. [place] (CRANBERRY 15 Medical ORAL) Branch CALCIUM Yes Take by [facility] ORAL - mouth ity of 10:41: daily. [place] 15 Medical Branch DOCOSAHEXAN Yes 1000mg Take 1,000 [facility] OIC 9-22 mg by ity of ACID/EPA 10:41: mouth [place] (FISH OIL 15 daily. Medical ORAL) Branch BIOTIN ORAL Yes Take by Uni vers - mouth. ity of 10:41: [place] [address] Medical Branch FOLIC ACID Yes Take by [facility] ers ORAL - mouth ity of 10:41: daily. [place] [address] Medical Branch MULTIVIT Yes Take by Univer s &MINERALS/F 06-17 mouth. ity of ERROUS FUM 10:41: [place] (MULTI 15 Medical VITAMIN Branch ORAL) METHYLCELLU Yes Univer s LOSE (FIBER 06-17 ity of THERAPY 10:41: [place] MIS) Medical Branch DOCUSATE Yes Take by [...] - mouth ity of EXTRACT 10:41: daily. [place] (CRANBERRY 15 Medical ORAL) Branch CALCIUM Yes Take by [facility] ORAL 9-22 mouth ity of 10:41: daily. [place] 15 Medical Branch DOCOSAHEXAN Yes 1000mg Take 1,000 [facility] OIC 9-22 mg by ity of ACID/EPA 10:41: mouth [place] (FISH OIL 15 daily. Medical ORAL) Branch BIOTIN ORAL Yes Take by Uni vers -22 mouth. ity of 10:41: [place] [address] Medical Branch FOLIC ACID Yes Take by [facility] ers ORAL 9-22 mouth ity of 10:41: daily. [place] [address] Medical Branch MULTIVIT Yes Take by Univer s &MINERALS/F 9-22 mouth. ity of ERROUS FUM 10:41: [place] (MULTI 15 Medical VITAMIN Branch ORAL) METHYLCELLU 0 Yes Univer s LOSE (FIBER 9-22 ity of THERAPY 10:41: [facility]) Medical Branch DOCUSATE Yes Take by [...] CRANBERRY [facility] - mouth ity of EXTRACT 10:41: daily. [place] (CRANBERRY 15 Medical ORAL) Branch CALCIUM Yes Take by [facility] ORAL - mouth ity of 10:41: daily. [place] [address] Medical Branch DOCOSAHEXAN Yes 1000mg Take 1,000 [facility] OIC 9-22 mg by ity of ACID/EPA 10:41: mouth [place] (FISH OIL 15 daily. Medical ORAL) Branch BIOTIN ORAL Yes Take by Uni vers - mouth. ity of 10:41: [place] [address] Medical Branch FOLIC ACID Yes Take by [facility] ers ORAL - mouth ity of 10:41: daily. [place] [address] Medical Branch MULTIVIT Yes Take by Univer s &MINERALS/F 9-22 mouth. ity of ERROUS FUM 10:41: [place] (MULTI 15 Medical VITAMIN Branch ORAL) METHYLCELLU 0 Yes Univer s LOSE (FIBER 9-22 ity of THERAPY 10:41: [facility]) Medical Branch DOCUSATE 0 Yes Take [...] - mouth ity of EXTRACT 10:41: daily. [place] (CRANBERRY 15 Medical ORAL) Branch CALCIUM Yes Take by [facility] ORAL - mouth ity of 10:41: daily. [place] 15 Medical Branch DOCOSAHEXAN Yes 1000mg Take 1,000 [facility] OIC 9-22 mg by ity of ACID/EPA 10:41: mouth [place] (FISH OIL 15 daily. Medical ORAL) Branch BIOTIN ORAL Yes Take by [facility] vers 06-17 mouth. ity of 10:41: [place] [address] Medical Branch FOLIC ACID Yes Take by [facility] ers ORAL 06-17 mouth ity of 10:41: daily. [place] [address] Medical Branch MULTIVIT Yes Take by Univer s &MINERALS/F 06-17 mouth. ity of ERROUS FUM 10:41: [place] (MULTI 15 Medical VITAMIN Branch ORAL) METHYLCELLU Yes Univer s LOSE (FIBER 06-17 ity of THERAPY 10:41: [place] MIS) Medical Branch DOCUSATE Yes Take by Univer s SODIUM - mouth. ity of (COLACE 10:41: [place] ORAL) 15 Medical Branch vitamin C Yes [...] - mouth ity of EXTRACT 10:41: daily. [place] (CRANBERRY 15 Medical ORAL) Branch CALCIUM Yes Take by [facility] ORAL - mouth ity of 10:41: daily. [place] 15 Medical Branch DOCOSAHEXAN Yes 1000mg Take 1,000 [facility] OIC 9-22 mg by ity of ACID/EPA 10:41: mouth [place] (FISH OIL 15 daily. Medical ORAL) Branch BIOTIN ORAL Yes Take by Uni vers - mouth. ity of 10:41: [place] [address] Medical Branch FOLIC ACID Yes Take by [facility] ers ORAL 06-17 mouth ity of 10:41: daily. [place] [address] Medical Branch MULTIVIT Yes Take by Univer s &MINERALS/F 06-17 mouth. ity of ERROUS FUM 10:41: [place] (MULTI 15 Medical VITAMIN Branch ORAL) [facility]LLU [facility] ity of THERAPY 10:41: [place] MISC) Medical Branch DOCUSATE Yes [facility] SODIUM - mouth. ity of (COLACE [...] 06-17 mouth ity of EXTRACT 10:41: daily. [place] (CRANBERRY 15 Medical ORAL) Branch CALCIUM Yes Take by [facility] ORAL 06-17 mouth ity of 10:41: daily. [place] [address] Medical Branch DOCOSAHEXAN Yes 1000mg Take 1,000 [facility] OIC 9-22 mg by ity of ACID/EPA 10:41: mouth [place] (FISH OIL 15 daily. Medical ORAL) Branch BIOTIN ORAL Yes Take by [facility] vers - mouth. ity of 10:41: [place] [address] Medical Branch FOLIC ACID Yes Take by [facility] ers ORAL - mouth ity of 10:41: daily. [place] [address] Medical Branch MULTIVIT Yes Take by Univer s &MINERALS/F - mouth. ity of ERROUS FUM 10:41: [place] (MULTI 15 Medical VITAMIN Branch ORAL) METHYLCELLU 2022-0 Yes Univer s LOSE (FIBER 9-22 ity of THERAPY 10:41: [facility]) 15 Medical Branch DOCUSATE Yes Take [...] Branch unit) tablet CRANBERRY Yes Take by [facility] rs FRUIT 06-17 mouth ity of EXTRACT 10:41: daily. [place] (CRANBERRY 15 Medical ORAL) Branch CALCIUM Yes Take by [facility] ORAL 06-17 mouth ity of 10:41: daily. [place] 15 Medical Branch DOCOSAHEXAN Yes 1000mg Take 1,000 [facility] OIC 9-22 mg by ity of ACID/EPA 10:41: mouth [place] (FISH OIL 15 daily. Medical ORAL) Branch BIOTIN ORAL Yes Take by [facility] vers 06-17 mouth. ity of 10:41: [place] [address] Medical Branch FOLIC ACID Yes Take by [facility] ers ORAL - mouth ity of 10:41: daily. [place] 15 Medical Branch MULTIVIT Yes [facility] &[facility]/F 06-17 mouth. ity of ERROUS FUM 10:41: [place] (MULTI 15 Medical VITAMIN Branch ORAL) METHYLCELLU Yes Univer s LOSE (FIBER 9-22 ity of THERAPY 10:41: [facility]) 15 Medical Branch DOCUSATE Yes Take [...] - mouth ity of EXTRACT 10:41: daily. [place] (CRANBERRY 15 Medical ORAL) Branch CALCIUM Yes Take by [facility] ORAL - mouth ity of 10:41: daily. [place] 15 Medical Branch DOCOSAHEXAN Yes 1000mg Take 1,000 [facility] OIC 9-22 mg by ity of ACID/EPA 10:41: mouth [place] (FISH OIL 15 daily. Medical ORAL) Branch BIOTIN ORAL Yes Take by [facility] vers 06-17 mouth. ity of 10:41: [place] 15 Medical Branch FOLIC ACID Yes Take by [facility] ers ORAL 06-17 mouth ity of 10:41: daily. [place] 15 Medical Branch MULTIVIT Yes Take by Univer s &MINERALS/F 06-17 mouth. ity of ERROUS FUM 10:41: [place] (MULTI 15 Medical VITAMIN Branch ORAL) METHYLCELLU Yes Univer s LOSE (FIBER 06-17 ity of THERAPY 10:41: [place] MISC) 15 Medical Branch DOCUSATE Yes Take [...] - mouth ity of EXTRACT 10:41: daily. [place] (CRANBERRY 15 Medical ORAL) Branch CALCIUM Yes Take by [facility] ORAL - mouth ity of 10:41: daily. [place] 15 Medical Branch DOCOSAHEXAN Yes 1000mg Take 1,000 [facility] OIC 9-22 mg by ity of ACID/EPA 10:41: mouth [place] (FISH OIL 15 daily. Medical ORAL) Branch BIOTIN ORAL Yes Take by [facility] vers - mouth. ity of 10:41: [place] [address] Medical Branch FOLIC ACID Yes Take by [facility] ers ORAL - mouth ity of 10:41: daily. [place] 15 Medical Branch MULTIVIT Yes Take by Univer s &MINERALS/F - mouth. ity of ERROUS FUM 10:41: [place] (MULTI 15 Medical VITAMIN Branch ORAL) METHYLCELLU Yes Univer s LOSE (FIBER -22 ity of THERAPY 10:41: [place] MIS) 15 Medical Branch DOCUSATE 0 Yes Take by Univer s SODIUM - [...] 06-17 mouth ity of EXTRACT 10:41: daily. [place] ([place]AN[place]ERRY 15 Medical ORAL) Branch CALCIUM Yes Take by [facility] ORAL - mouth ity of 10:41: daily. [place] 15 Medical Branch DOCOSAHEXAN Yes 1000mg Take 1,000 [facility] OIC 9-22 mg by ity of ACID/EPA 10:41: mouth [place] (FISH OIL 15 daily. Medical ORAL) Branch BIOTIN ORAL Yes Take by [facility] vers 06-17 mouth. ity of 10:41: [place] [address] Medical Branch FOLIC ACID Yes Take by [facility] ers ORAL - mouth ity of 10:41: daily. [place] 15 Medical Branch MULTIVIT Yes Take by Univer s &MINERALS/F - mouth. ity of ERROUS FUM 10:41: [place] (MULTI 15 Medical VITAMIN Branch ORAL) METHYLCELLU 0 Yes Univer s LOSE (FIBER 9-22 ity of THERAPY 10:41: [place] MIS) 15 Medical Branch DOCUSATE 0 Yes Take [...] 06-17 mouth ity of EXTRACT 10:41: daily. [place] (CRANBERRY 15 Medical ORAL) Branch CALCIUM Yes Take by [facility] ORAL 06-17 mouth ity of 10:41: daily. [place] [address] Medical Branch DOCOSAHEXAN Yes 1000mg Take 1,000 [facility] OIC 9-22 mg by ity of ACID/EPA 10:41: mouth [place] (FISH OIL 15 daily. Medical ORAL) Branch BIOTIN ORAL Yes Take by [facility] vers 06-17 mouth. ity of 10:41: [place] [address] Medical Branch FOLIC ACID Yes Take by [facility] ers ORAL 06-17 mouth ity of 10:41: daily. [place] [address] Medical Branch MULTIVIT Yes Take by Univer s &MINERALS/F 06-17 mouth. ity of ERROUS FUM 10:41: [place] (MULTI 15 Medical VITAMIN Branch ORAL) METHYLCELLU Yes Univer s LOSE (FIBER 06-17 ity of THERAPY 10:41: [facility]) 15 Medical Branch vitamin C Yes [...] - mouth ity of EXTRACT 10:41: daily. [place] (CRANBERRY 15 Medical ORAL) Branch CALCIUM Yes Take by [facility] ORAL 06-17 mouth ity of 10:41: daily. [place] [address] Medical Branch DOCOSAHEXAN Yes 1000mg Take 1,000 [facility] OIC 9-22 mg by ity of ACID/EPA 10:41: mouth [place] (FISH OIL 15 daily. Medical ORAL) Branch BIOTIN ORAL 0 Yes Take by [facility] vers - mouth. ity of 10:41: [place] 15 Medical Branch FOLIC ACID 0 Yes Take by [facility] ers ORAL - mouth ity of 10:41: daily. [place] 15 Medical Branch MULTIVIT 0 Yes Take by Univer s &MINERALS/F - mouth. ity of ERROUS FUM 10:41: [place] (MULTI 15 Medical VITAMIN Branch ORAL) METHYLCELLU 0 Yes Univer s LOSE (FIBER - ity of THERAPY 10:41: [facility]) 15 Medical Branch vitamin C Yes [...] - mouth ity of EXTRACT 10:41: daily. [place] (CRANBERRY 15 Medical ORAL) Branch CALCIUM Yes Take by [facility] ORAL - mouth ity of 10:41: daily. [place] 15 Medical Branch DOCOSAHEXAN Yes 1000mg Take 1,000 [facility] OIC 9-22 mg by ity of ACID/EPA 10:41: mouth [place] (FISH OIL 15 daily. Medical ORAL) Branch BIOTIN ORAL Yes Take by [facility] vers -22 mouth. ity of 10:41: [place] 15 Medical Branch FOLIC ACID 0 Yes Take by Univ ers ORAL - mouth ity of 10:41: daily. [place] 15 Medical Branch MULTIVIT 0 Yes Take by Univer s &MINERALS/F - mouth. ity of ERROUS FUM 10:41: [place] (MULTI 15 Medical VITAMIN Branch ORAL) METHYLCELLU 0 Yes Univer s LOSE (FIBER 9-22 ity of THERAPY 10:41: [facility]) 15 Medical Branch vitamin C 0 [...] 06-17 mouth ity of EXTRACT 10:41: daily. [place] (CRANBERRY 15 Medical ORAL) Branch CALCIUM Yes Take by [facility] ORAL 06-17 mouth ity of 10:41: daily. [place] [address] Medical Branch DOCOSAHEXAN Yes 1000mg Take 1,000 [facility] OIC 9-22 mg by ity of ACID/EPA 10:41: mouth [place] (FISH OIL 15 daily. Medical ORAL) Branch BIOTIN ORAL Yes Take by Uni vers 06-17 mouth. ity of 10:41: [place] [address] Medical Branch FOLIC ACID Yes Take by Univ ers ORAL 06-17 mouth ity of 10:41: daily. [place] [address] Medical Branch [facility]ULTIVIT [facility]F [facility]-17 mouth. ity of ERROUS FUM 10:41: [place] (MULTI 15 Medical VITAMIN Branch ORAL) METHYLCELLU [facility] 06-17 ity of THERAPY 10:41: [place] [facility] Branch vitamin C Yes 1000mg Take [...] - mouth ity of EXTRACT 10:41: daily. [place] (CRANBERRY 15 Medical ORAL) Branch CALCIUM Yes Take by [facility] ORAL - mouth ity of 10:41: daily. [place] [address] Medical Branch DOCOSAHEXAN Yes 1000mg Take 1,000 [facility] OIC 9-22 mg by ity of ACID/EPA 10:41: mouth [place] (FISH OIL 15 daily. Medical ORAL) Branch BIOTIN ORAL 0 Yes Take by Uni vers - mouth. ity of 10:41: [place] 15 Medical Branch FOLIC ACID 0 Yes Take by Univ ers ORAL - mouth ity of 10:41: daily. [place] 15 Medical Branch MULTIVIT 0 Yes Take by Univer s &MINERALS/F - mouth. ity of ERROUS FUM 10:41: [place] (MULTI 15 Medical VITAMIN Branch ORAL) METHYLCELLU 0 Yes Univer s LOSE (FIBER 9-22 ity of THERAPY 10:41: [facility]) 15 Medical Branch vitamin C 0 [...] - mouth ity of EXTRACT 10:41: daily. [place] (CRANBERRY 15 Medical ORAL) Branch CALCIUM Yes Take by [facility] ORAL - mouth ity of 10:41: daily. [place] 15 Medical Branch DOCOSAHEXAN 0 Yes 1000mg Take 1,000 [facility] OIC 9-22 mg by ity of ACID/EPA 10:41: mouth [place] (FISH OIL 15 daily. Medical ORAL) Branch BIOTIN ORAL Yes Take by [facility] vers -22 mouth. ity of 10:41: [place] 15 Medical Branch FOLIC ACID 0 Yes Take by Univ ers ORAL 9- mouth ity of 10:41: daily. [place] 15 Medical Branch MULTIVIT 0 Yes Take by [facility] &MINERALS/F - mouth. ity of ERROUS FUM 10:41: [place] (MULTI 15 Medical VITAMIN Branch ORAL) METHYLCELLU 2021-0 Yes Univer s LOSE (FIBER 9-22 ity of THERAPY 10:41: [facility]) 15 Medical Branch vitamin C 0 [...] 06-17 mouth ity of EXTRACT 10:41: daily. [place] (CRANBERRY 15 Medical ORAL) Branch CALCIUM Yes Take by Univers ORAL 06-17 mouth ity of 10:41: daily. [place] 15 Medical Branch DOCOSAHEXAN Yes 1000mg Take 1,000 Univers OIC 9-22 mg by ity of ACID/EPA 10:41: mouth [place] (FISH OIL 15 daily. Medical ORAL) Branch BIOTIN ORAL Yes Take by Uni vers 06-17 mouth. ity of 10:41: [place] [address] Medical Branch FOLIC ACID Yes Take by Univ ers ORAL 06-17 mouth ity of 10:41: daily. [place] [address] Medical Branch MULTIVIT Yes Take by Univer s &MINERALS/F 06-17 mouth. ity of ERROUS FUM 10:41: [place] (MULTI 15 Medical VITAMIN Branch ORAL) [facility] ity of THERAPY 10:41: [facility]) Medical Branch vitamin C Yes 1000mg Take [...] 06-17 mouth ity of EXTRACT 10:41: daily. [place] (CRANBERRY 15 Medical ORAL) Branch CALCIUM Yes Take by Univers ORAL 06-17 mouth ity of 10:41: daily. [place] 15 Medical Branch DOCOSAHEXAN Yes 1000mg Take 1,000 [facility] OIC 9-22 mg by ity of ACID/EPA 10:41: mouth [place] (FISH OIL 15 daily. Medical ORAL) Branch BIOTIN ORAL Yes Take by Uni vers 06-17 mouth. ity of 10:41: [place] 15 Medical Branch FOLIC ACID 0 Yes Take by Univ ers ORAL 06-17 mouth ity of 10:41: daily. [place] 15 Medical Branch MULTIVIT 0 Yes Take by Univer s &MINERALS/F 06-17 mouth. ity of ERROUS FUM 10:41: [place] (MULTI 15 Medical VITAMIN Branch ORAL) METHYLCELLU 0 Yes Univer s LOSE (FIBER 06-17 ity of THERAPY 10:41: [facility]) 15 Medical Branch vitamin C 0 Yes 1000mg Take 1,000 Univers with derrell 9-22 mg by ity of hips 1,000 10:41: mouth [place] mg tablet 15 daily. Medical Branch cholecalcif 0 Yes 1000U Take 1,000 Univers edmar, 9-22 Units by ity of vitamin D3, 10:41: mouth [place] 25 mcg 15 daily. Medical (1,000 Branch unit) tablet CRANBERRY Yes Take by [facility] rs FRUIT 06-17 mouth ity of EXTRACT 10:41: daily. [place] (CRANBERRY 15 Medical ORAL) Branch CALCIUM 0 Yes Take by Univers ORAL 06-17 mouth ity of 10:41: daily. [place] 15 Medical Branch DOCOSAHEXAN Yes 1000mg Take 1,000 [facility] OIC 9-22 mg by ity of ACID/EPA 10:41: mouth [place] (FISH OIL 15 daily. Medical ORAL) Branch BIOTIN ORAL Yes Take by Uni vers 06-17 mouth. ity of 10:41: [place] 15 Medical Branch FOLIC ACID 0 Yes Take by Univ ers ORAL 06-17 mouth ity of 10:41: daily. [place] 15 Medical Branch MULTIVIT 0 Yes Take by Univer s &MINERALS/F 06-17 mouth. ity of ERROUS FUM 10:41: [place] (MULTI 15 Medical VITAMIN Branch ORAL) METHYLCELLU 2021-0 Yes Univer s LOSE (FIBER - ity of THERAPY 10:41: [facility]) Medical Branch vitamin C 0 Yes 1000mg Take 1,000 [facility] with derrell 9-22 mg by ity of hips 1,000 10:41: mouth [place] mg tablet 15 daily. Medical Branch cholecalcif 2021-0 Yes 1000U Take 1,000 [facility] edmar, 9-22 Units by ity of vitamin D3, 10:41: mouth [place] 25 mcg 15 daily. Medical (1,000 Branch unit) tablet CRANBERRY Yes Take by Unive rs FRUIT -22 mouth ity of EXTRACT 10:41: daily. [place] (CRANBERRY 15 Medical ORAL) Branch CALCIUM 0 Yes Take by Univers ORAL 9-22 mouth ity of 10:41: daily. 15 Medical Branch DOCOSAHEXAN 0 Yes 1000mg Take 1,000 [facility] OIC 9-22 mg by ity of ACID/EPA 10:41: mouth [place] (FISH OIL 15 daily. Medical ORAL) Branch BIOTIN ORAL Yes Take by Uni vers 9-22 mouth. ity of 10:41: [place] 15 Medical Branch SUMAtriptan 0 Yes [id number] 50mg Take 1 [facility] 50 mg 9-22 tablet by ity of tablet 00:00: mouth as [place] 00 needed for Medical Migraine. Branch topiramate 0 Yes [id number] 75mg Take 3 [facility] 25 mg 9-22 tablets by ity of tablet 00:00: mouth in [place] 00 the Medical morning Branch and 3 tablets in the evening. SUMAtriptan 2021-0 Yes [id number] 50mg Take 1 [facility] 50 mg 9-22 tablet by ity of tablet 00:00: mouth as [place] 00 needed for Medical Migraine. Branch topiramate 0 Yes [id number] 75mg Take 3 [facility] 25 mg 9-22 tablets by ity of tablet 00:00: mouth in [place] 00 the Medical morning Branch and 3 tablets in the evening. SUMAtriptan 2021-0 Yes [id number] 50mg Take 1 [facility] 50 mg 9-22 tablet by ity of tablet 00:00: mouth as [place] 00 needed for Medical Migraine. Branch topiramate 2021-0 Yes [id number] 75mg Take 3 [facility] 25 mg 9-22 tablets by ity of tablet 00:00: mouth in [place] 00 the Medical morning Branch and 3 tablets in the evening. SUMAtriptan 2021-0 Yes [id number] 50mg Take 1 [facility] 50 mg 9-22 tablet by ity of tablet 00:00: mouth as [place] 00 needed for Medical Migraine. Branch topiramate 2021-0 Yes [id number] 75mg Take 3 [facility] 25 mg 9-22 tablets by ity of tablet 00:00: mouth in [place] 00 the Medical morning Branch and 3 tablets in the evening. topiramate 2021-0 Yes [id number] 75mg Take 3 [facility] 25 mg 9-22 tablets by ity of tablet 00:00: mouth in [place] 00 the Medical morning Branch and 3 tablets in the evening. topiramate 2021-0 Yes [id number] 75mg Take 3 [facility] 25 mg 9-22 tablets by ity of tablet 00:00: mouth in [place] 00 the Medical morning Branch and 3 tablets in the evening. topiramate 2021-0 Yes [id number] 75mg Take 3 [facility] 25 mg 9-22 tablets by ity of tablet 00:00: mouth in [place] 00 the Medical morning Branch and 3 tablets in the evening. topiramate 2021-0 Yes [id number] 75mg Take 3 [facility] 25 mg 9-22 tablets by ity of tablet 00:00: mouth in [place] 00 the Medical morning Branch and 3 tablets in the evening. topiramate 2021-0 Yes [id number] 75mg Take 3 [facility] 25 mg 9-22 tablets by ity of tablet 00:00: mouth in [place] 00 the Medical morning Branch and 3 tablets in the evening. topiramate 2021-0 Yes [id number] 75mg Take 3 [facility] 25 mg 9-22 tablets by ity of tablet 00:00: mouth in [place] 00 the Medical morning Branch and 3 tablets in the evening. topiramate 2021-0 2021- No [id number] 75mg Take 3 [facility] 25 mg 9-22 10-13 tablets by ity of tablet 00:00: 00:00 mouth in [place] 00 :00 the Medical morning Branch and 3 tablets in the evening. SUMAtriptan 2021-0 2021- No [id number] 50mg Take 1 Univers 50 mg 9-22 09-30 tablet by ity of tablet 00:00: 00:00 mouth as [place] 00 :00 needed for Medical Migraine. Branch pantoprazol 2021-0 Yes [id number] 40mg Take 1 Univers e 40 mg EC 9-16 tablet by ity of tablet 00:00: mouth in [place] 00 the Medical morning. Branch Simethicone 2021-0 Yes [id number] 125mg Take 1 [facility] 125 mg 9-16 capsule by ity of 00:00: mouth [place] 00 after Medical meals and Branch at bedtime as needed for Gas (Per bowel prep). pantoprazol 2021-0 Yes [id number] 40mg Take 1 Univers e 40 mg EC 9-16 tablet by ity of tablet 00:00: mouth in [place] 00 the Medical morning. Branch Simethicone 2021-0 Yes [id number] 125mg Take 1 [facility] 125 mg 9-16 capsule by ity of 00:00: mouth [place] 00 after Medical meals and Branch at bedtime as needed for Gas (Per bowel prep). pantoprazol 2021-0 Yes [id number] 40mg Take 1 Univers e 40 mg EC 9-16 tablet by ity of tablet 00:00: mouth in [place] 00 the Medical morning. Branch Simethicone 2021-0 Yes [id number] 125mg Take 1 [facility] 125 mg 9-16 capsule by ity of 00:00: mouth [place] 00 after Medical meals and Branch at bedtime as needed for Gas (Per bowel prep). pantoprazol 2021-0 Yes [id number] 40mg Take 1 Univers e 40 mg EC 9-16 tablet by ity of tablet 00:00: mouth in [place] 00 the Medical morning. Branch Simethicone 0 Yes [id number] 125mg Take 1 [facility] 125 mg 9-16 capsule by ity of 00:00: mouth [place] 00 after Medical meals and Branch at bedtime as needed for Gas (Per bowel prep). pantoprazol 2021-0 Yes [id number] 40mg Take 1 [facility] e 40 mg EC 9-16 tablet by ity of tablet 00:00: mouth in [place] 00 the Medical morning. Branch Simethicone 2021-0 Yes [id number] 125mg Take 1 [facility] 125 mg 9-16 capsule by ity of 00:00: mouth [place] 00 after Medical meals and Branch at bedtime as needed for Gas (Per bowel prep). pantoprazol 2021-0 Yes [id number] 40mg Take 1 [facility] e 40 mg EC 9-16 tablet by ity of tablet 00:00: mouth in [place] 00 the Medical morning. Branch Simethicone 2021-0 Yes [id number] 125mg Take 1 [facility] 125 mg 9-16 capsule by ity of 00:00: mouth [place] 00 after Medical meals and Branch at bedtime as needed for Gas (Per bowel prep). pantoprazol 2021-0 Yes [id number] 40mg Take 1 Univers e 40 mg EC 9-16 tablet by ity of tablet 00:00: mouth in [place] 00 the Medical morning. Branch Simethicone 2021-0 Yes [id number] 125mg Take 1 [facility] 125 mg 9-16 capsule by ity of 00:00: mouth [place] 00 after Medical meals and Branch at bedtime as needed for Gas (Per bowel prep). pantoprazol 2021-0 Yes [id number] 40mg Take 1 Univers e 40 mg EC 9-16 tablet by ity of tablet 00:00: mouth in [place] 00 the Medical morning. Branch Simethicone 0 Yes [id number] 125mg Take 1 [facility] 125 mg 9-16 capsule by ity of 00:00: mouth [place] 00 after Medical meals and Branch at bedtime as needed for Gas (Per bowel prep). pantoprazol 0 Yes [id number] 40mg Take 1 [facility] e 40 mg EC 9-16 tablet by ity of tablet 00:00: mouth in [place] 00 the Medical morning. Branch Simethicone 0 Yes [id number] 125mg Take 1 [facility] 125 mg 9-16 capsule by ity of 00:00: mouth [place] 00 after Medical meals and Branch at bedtime as needed for Gas (Per bowel prep). pantoprazol 2021-0 Yes [id number] 40mg Take 1 [facility] e 40 mg EC 9-16 tablet by ity of tablet 00:00: mouth in [place] 00 the Medical morning. Branch Simethicone 2021-0 Yes [id number] 125mg Take 1 [facility] 125 mg 9-16 capsule by ity of 00:00: mouth [place] 00 after Medical meals and Branch at bedtime as needed for Gas (Per bowel prep). pantoprazol 2021-0 Yes [id number] 40mg Take 1 [facility] e 40 mg EC 9-16 tablet by ity of tablet 00:00: mouth in [place] 00 the Medical morning. Branch Simethicone 2021-0 Yes [id number] 125mg Take 1 [facility] 125 mg 9-16 capsule by ity of 00:00: mouth [place] 00 after Medical meals and Branch at bedtime as needed for Gas (Per bowel prep). pantoprazol 2021-0 Yes [id number] 40mg Take 1 [facility] e 40 mg EC 9-16 tablet by ity of tablet 00:00: mouth in [place] 00 the Medical morning. Branch Simethicone 2021-0 Yes [id number] 125mg Take 1 [facility] 125 mg 9-16 capsule by ity of 00:00: mouth [place] 00 after Medical meals and Branch at bedtime as needed for Gas (Per bowel prep). pantoprazol 2021-0 Yes [id number] 40mg Take 1 [facility] e 40 mg EC 9-16 tablet by ity of tablet 00:00: mouth in [place] 00 the Medical morning. Branch Simethicone 2021-0 Yes [id number] 125mg Take 1 [facility] 125 mg 9-16 capsule by ity of 00:00: mouth [place] 00 after Medical meals and Branch at bedtime as needed for Gas (Per bowel prep). pantoprazol 2021-0 Yes [id number] 40mg Take 1 [facility] e 40 mg EC 9-16 tablet by ity of tablet 00:00: mouth in [place] 00 the Medical morning. Branch Simethicone 0 Yes [id number] 125mg Take 1 [facility] 125 mg 9-16 capsule by ity of 00:00: mouth [place] 00 after Medical meals and Branch at bedtime as needed for Gas (Per bowel prep). pantoprazol 2021-0 Yes [id number] 40mg Take 1 [facility] e 40 mg EC 9-16 tablet by ity of tablet 00:00: mouth in [place] 00 the Medical morning. Branch Simethicone 0 Yes [id number] 125mg Take 1 [facility] 125 mg 9-16 capsule by ity of 00:00: mouth [place] 00 after Medical meals and Branch at bedtime as needed for Gas (Per bowel prep). Simethicone 2021-0 Yes [id number] 125mg Take 1 [facility] 125 mg 9-16 capsule by ity of 00:00: mouth [place] 00 after Medical meals and Branch at bedtime as needed for Gas (Per bowel prep). Simethicone 2021-0 Yes [id number] 125mg Take 1 [facility] 125 mg 9-16 capsule by ity of 00:00: mouth [place] 00 after Medical meals and Branch at bedtime as needed for Gas (Per bowel prep). Simethicone 2021-0 2- No [id number] 125mg Take 1 [facility] 125 mg 9-16 11- capsule by ity of 00:00: 00:00 mouth [place] 00 :00 after Medical meals and Branch at bedtime as needed for Gas (Per bowel prep). Simethicone 2021-0 2021- No [id number] 125mg Take 1 [facility] 125 mg 06-11- capsule by ity of 00:00: 00:00 mouth [place] 00 :00 after Medical meals and Branch at bedtime as needed for Gas (Per bowel prep). pantoprazol 2021-0 2021- No [id number] 40mg Take 1 [facility] e 40 mg EC 06-11- tablet by ity of tablet 00:00: 00:00 mouth in [place] 00 :00 the Medical morning. Branch SUMAtriptan 2021-0 Yes [id number] TAKE 1 [facility] 50 mg 9-06 TABLET BY ity of tablet 00:00: MOUTH [place] 00 NEEDED FOR Medical MIGRAINE Branch HEADACHE ( MAY REPEAT IN 2 HOURS ) SUMAtriptan 2021-0 Yes [id number] TAKE 1 [facility] 50 mg 9-06 TABLET BY ity of tablet 00:00: MOUTH [place] 00 NEEDED FOR Medical MIGRAINE Branch HEADACHE ( MAY REPEAT IN 2 HOURS ) SUMAtriptan 2021-0 Yes [id number] TAKE 1 [facility] 50 mg 9-06 TABLET BY ity of tablet 00:00: MOUTH [place] 00 NEEDED FOR Medical MIGRAINE Branch HEADACHE ( MAY REPEAT IN 2 HOURS ) SUMAtriptan 2021-0 Yes [id number] TAKE 1 [facility] 50 mg 9-06 TABLET BY ity of tablet 00:00: MOUTH [place] 00 NEEDED FOR Medical MIGRAINE Branch HEADACHE ( MAY REPEAT IN 2 HOURS ) SUMAtriptan 2021-0 Yes [id number] TAKE 1 [facility] 50 mg 9-06 TABLET BY ity of tablet 00:00: MOUTH [place] 00 NEEDED FOR Medical MIGRAINE Branch HEADACHE ( MAY REPEAT IN 2 HOURS ) SUMAtriptan 2021-0 Yes [id number] TAKE 1 [facility] 50 mg 9-06 TABLET BY ity of tablet 00:00: MOUTH [place] 00 NEEDED FOR Medical MIGRAINE Branch HEADACHE ( MAY REPEAT IN 2 HOURS ) SUMAtriptan 2-0 Yes [id number] TAKE 1 [facility] 50 mg 9-06 TABLET BY ity of tablet 00:00: MOUTH [place] 00 NEEDED FOR Medical MIGRAINE Branch HEADACHE ( MAY REPEAT IN 2 HOURS ) SUMAtriptan 2021-0 Yes [id number] TAKE 1 [facility] 50 mg 9-06 TABLET BY ity of tablet 00:00: MOUTH [place] 00 NEEDED FOR Medical MIGRAINE Branch HEADACHE ( MAY REPEAT IN 2 HOURS ) SUMAtriptan 2021-0 Yes [id number] TAKE 1 [facility] 50 mg 9-06 TABLET BY ity of tablet 00:00: MOUTH [place] 00 NEEDED FOR Medical MIGRAINE Branch HEADACHE ( MAY REPEAT IN 2 HOURS ) SUMAtriptan 2021-0 Yes [id number] TAKE 1 [facility] 50 mg 9-06 TABLET BY ity of tablet 00:00: MOUTH [place] 00 NEEDED FOR Medical MIGRAINE Branch HEADACHE ( MAY REPEAT IN 2 HOURS ) SUMAtriptan 2021-0 Yes [id number] TAKE 1 [facility] 50 mg 9-06 TABLET BY ity of tablet 00:00: MOUTH [place] 00 NEEDED FOR Medical MIGRAINE Branch HEADACHE ( MAY REPEAT IN 2 HOURS ) SUMAtriptan 2021-0 Yes [id number] TAKE 1 [facility] 50 mg 9-06 TABLET BY ity of tablet 00:00: MOUTH [place] 00 NEEDED FOR Medical MIGRAINE Branch HEADACHE ( MAY REPEAT IN 2 HOURS ) SUMAtriptan 2021-0 2021- No [id number] TAKE 1 [facility] 50 mg 9-06 09-22 TABLET BY ity of tablet 00:00: 00:00 MOUTH [place] 00 :00 NEEDED FOR Medical MIGRAINE Branch HEADACHE ( MAY REPEAT IN 2 HOURS ) SUMAtriptan 2021-0 2021- No [id number] TAKE 1 [facility] 50 mg 9-06 09-22 TABLET BY ity of tablet 00:00: 00:00 MOUTH [place] 00 :00 NEEDED FOR Medical MIGRAINE Branch HEADACHE ( MAY REPEAT IN 2 HOURS ) SUMAtriptan 2021-0 2021- No [id number] TAKE 1 [facility] 50 mg 9-06 09-22 TABLET BY ity of tablet 00:00: 00:00 MOUTH [place] 00 :00 NEEDED FOR Medical MIGRAINE Branch HEADACHE ( MAY REPEAT IN 2 HOURS ) topiramate 2-0 Yes [id number] Take 2 [facility] 25 mg 9-01 tablets by ity of tablet 00:00: mouth [place] 00 twice Medical daily Branch topiramate 2-0 Yes [id number] Take 2 [facility] 25 mg 9-01 tablets by ity of tablet 00:00: mouth [place] 00 twice Medical daily Branch topiramate 2-0 Yes [id number] Take 2 [facility] 25 mg 9-01 tablets by ity of tablet 00:00: mouth [place] 00 twice Medical daily Branch topiramate 2022-0 Yes [id number] Take 2 [facility] 25 mg 9-01 tablets by ity of tablet 00:00: mouth [place] 00 twice Medical daily Branch topiramate 2022-0 Yes [id number] Take 2 [facility] 25 mg 9-01 tablets by ity of tablet 00:00: mouth [place] 00 twice Medical daily Branch topiramate 2022-0 Yes [id number] Take 2 [facility] 25 mg 9-01 tablets by ity of tablet 00:00: mouth [place] 00 twice Medical daily Branch topiramate 2022-0 Yes [id number] Take 2 [facility] 25 mg 9-01 tablets by ity of tablet 00:00: mouth [place] 00 twice Medical daily Branch topiramate 2022-0 Yes [id number] Take 2 [facility] 25 mg 9-01 tablets by ity of tablet 00:00: mouth [place] 00 twice Medical daily Branch topiramate 2-0 Yes [id number] Take 2 [facility] 25 mg 9-01 tablets by ity of tablet 00:00: mouth twice Medical daily Branch topiramate 2-0 Yes [id number] Take 2 [facility] 25 mg 9-01 tablets by ity of tablet 00:00: mouth [place] 00 twice Medical daily Branch topiramate 2022-0 Yes [id number] Take 2 [facility] 25 mg 9-01 tablets by ity of tablet 00:00: mouth [place] 00 twice Medical daily Branch topiramate 2022-0 Yes [id number] Take 2 [facility] 25 mg 9-01 tablets by ity of tablet 00:00: mouth [place] 00 twice Medical daily Branch topiramate 2022-0 Yes [id number] Take 2 [facility] 25 mg 9-01 tablets by ity of tablet 00:00: mouth [place] 00 twice Medical daily Branch topiramate 2022-0 Yes [id number] Take 2 [facility] 25 mg 9-01 tablets by ity of tablet 00:00: mouth [place] 00 twice Medical daily Branch topiramate 2022-0 Yes [id number] Take 2 [facility] 25 mg 9-01 tablets by ity of tablet 00:00: mouth [place] 00 twice Medical daily Branch topiramate 2022-0 2- No [id number] Take 2 [facility] 25 mg 9-01 09-22 tablets by ity of tablet 00:00: 00:00 mouth [place] 00 :00 twice Medical daily Branch topiramate 2022-0 2- No [id number] Take 2 [facility] 25 mg 05-27 tablets by ity of tablet 00:00: 00:00 mouth [place] 00 :00 twice Medical daily Branch topiramate 2021- No [id number] Take 2 [facility] 25 mg 05-27 tablets by ity of tablet 00:00: 00:00 mouth [place] 00 :00 twice Medical daily Branch methocarbam Yes [id number] 500mg Take 1 Univers oL 500 mg 8-11 tablet by ity o f tablet 00:00: mouth (four) Medical times Branch daily as needed for Pain (scale 7-10). methocarbam Yes [id number] 500mg Take 1 [facility] oL 500 mg 8-11 tablet by ity o f tablet 00:00: mouth (four) Medical times Branch daily as needed for Pain (scale 7-10). methocarbam Yes [id number] 500mg Take 1 Univers oL 500 mg 8-11 tablet by ity o f tablet 00:00: mouth (four) Medical times Branch daily as needed for Pain (scale 7-10). methocarbam Yes [id number] 500mg Take 1 [facility] oL 500 mg 8-11 tablet by ity o f tablet 00:00: mouth (four) Medical times Branch daily as needed for Pain (scale 7-10). methocarbam Yes [id number] 500mg Take 1 [facility] oL 500 mg 8-11 tablet by ity o f tablet 00:00: mouth (four) Medical times Branch daily as needed for Pain (scale 7-10). methocarbam Yes [id number] 500mg Take 1 [facility] oL 500 mg 8-11 tablet by ity o f tablet 00:00: mouth (four) Medical times Branch daily as needed for Pain (scale 7-10). methocarbam 2021-0 Yes [id number] 500mg Take 1 [facility] oL 500 mg 8-11 tablet by ity o f tablet 00:00: mouth (four) Medical times Branch daily as needed for Pain (scale 7-10). methocarbam 2021- Yes [id number] 500mg Take 1 [facility] oL 500 mg 8-11 tablet by ity o f tablet 00:00: mouth (four) Medical times Branch daily as needed for Pain (scale 7-10). methocarbam 2022-0 Yes [id number] 500mg Take 1 [facility] oL 500 mg 8-11 tablet by ity o f tablet 00:00: mouth (four) Medical times Branch daily as needed for Pain (scale 7-10). methocarbam 2022-0 Yes [id number] 500mg Take 1 [facility] oL 500 mg 8-11 tablet by ity o f tablet 00:00: mouth (four) Medical times Branch daily as needed for Pain (scale 7-10). methocarbam 2022-0 Yes [id number] 500mg Take 1 [facility] oL 500 mg 8-11 tablet by ity o f tablet 00:00: mouth (four) Medical times Branch daily as needed for Pain (scale 7-10). methocarbam 2022-0 Yes [id number] 500mg Take 1 [facility] oL 500 mg 8-11 tablet by ity o f tablet 00:00: mouth (four) Medical times Branch daily as needed for Pain (scale 7-10). methocarbam 2022-0 Yes [id number] 500mg Take 1 [facility] oL 500 mg 8-11 tablet by ity o f tablet 00:00: mouth (four) Medical times Branch daily as needed for Pain (scale 7-10). methocarbam 2022-0 Yes [id number] 500mg Take 1 [facility] oL 500 mg 8-11 tablet by ity o f tablet 00:00: mouth (four) Medical times Branch daily as needed for Pain (scale 7-10). methocarbam 2022-0 Yes [id number] 500mg Take 1 [facility] oL 500 mg 8-11 tablet by ity o f tablet 00:00: mouth (four) Medical times Branch daily as needed for Pain (scale 7-10). methocarbam 2022-0 Yes [id number] 500mg Take 1 [facility] oL 500 mg 8-11 tablet by ity o f tablet 00:00: mouth (four) Medical times Branch daily as needed for Pain (scale 7-10). methocarbam 2022-0 Yes [id number] 500mg Take 1 [facility] oL 500 mg 8-11 tablet by ity o f tablet 00:00: mouth (four) Medical times Branch daily as needed for Pain (scale 7-10). methocarbam 2022-0 Yes [id number] 500mg Take 1 [facility] oL 500 mg 8-11 tablet by ity o f tablet 00:00: mouth (four) Medical times Branch daily as needed for Pain (scale 7-10). methocarbam 2022-0 Yes [id number] 500mg Take 1 [facility] oL 500 mg 8-11 tablet by ity o f tablet 00:00: mouth (four) Medical times Branch daily as needed for Pain (scale 7-10). methocarbam 2022-0 Yes [id number] 500mg Take 1 [facility] oL 500 mg 8-11 tablet by ity o f tablet 00:00: mouth (four) Medical times Branch daily as needed for Pain (scale 7-10). methocarbam 2022-0 Yes [id number] 500mg Take 1 [facility] oL 500 mg 8-11 tablet by ity o f tablet 00:00: mouth (four) Medical times Branch daily as needed for Pain (scale 7-10). methocarbam 2022-0 Yes [id number] 500mg Take 1 [facility] oL 500 mg 8-11 tablet by ity o f tablet 00:00: mouth (four) Medical times Branch daily as needed for Pain (scale 7-10). methocarbam 2022-0 Yes [id number] 500mg Take 1 [facility] oL 500 mg 8-11 tablet by ity o f tablet 00:00: mouth (four) Medical times Branch daily as needed for Pain (scale 7-10). methocarbam 2022-0 Yes [id number] 500mg Take 1 [facility] oL 500 mg 8-11 tablet by ity o f tablet 00:00: mouth (four) Medical times Branch daily as needed for Pain (scale 7-10). methocarbam 2022-0 Yes [id number] 500mg Take 1 [facility] oL 500 mg 8-11 tablet by ity o f tablet 00:00: mouth (four) Medical times Branch daily as needed for Pain (scale 7-10). methocarbam 2022-0 Yes [id number] 500mg Take 1 [facility] oL 500 mg 8-11 tablet by ity o f tablet 00:00: mouth (four) Medical times Branch daily as needed for Pain (scale 7-10). methocarbam 2022-0 Yes [id number] 500mg Take 1 [facility] oL 500 mg 8-11 tablet by ity o f tablet 00:00: mouth (four) Medical times Branch daily as needed for Pain (scale 7-10). methocarbam 2022-0 Yes [id number] 500mg Take 1 [facility] oL 500 mg 8-11 tablet by ity o f tablet 00:00: mouth (four) Medical times Branch daily as needed for Pain (scale 7-10). methocarbam 2022-0 Yes [id number] 500mg Take 1 [facility] oL 500 mg 8-11 tablet by ity o f tablet 00:00: mouth (four) Medical times Branch daily as needed for Pain (scale 7-10). methocarbam 2022-0 Yes [id number] 500mg Take 1 [facility] oL 500 mg 8-11 tablet by ity o f tablet 00:00: mouth (four) Medical times Branch daily as needed for Pain (scale 7-10). methocarbam 2-0 Yes [id number] 500mg Take 1 [facility] oL 500 mg 8-11 tablet by ity o f tablet 00:00: mouth (four) Medical times Branch daily as needed for Pain (scale 7-10). methocarbam 2022-0 Yes [id number] 500mg Take 1 [facility] oL 500 mg 8-11 tablet by ity o f tablet 00:00: mouth (four) Medical times Branch daily as needed for Pain (scale 7-10). methocarbam 2022-0 Yes [id number] 500mg Take 1 [facility] oL 500 mg 8-11 tablet by ity o f tablet 00:00: mouth (four) Medical times Branch daily as needed for Pain (scale 7-10). methocarbam 2022-0 Yes [id number] 500mg Take 1 [facility] oL 500 mg 8-11 tablet by ity o f tablet 00:00: mouth (four) Medical times Branch daily as needed for Pain (scale 7-10). methocarbam 2022-0 Yes [id number] 500mg Take 1 [facility] oL 500 mg 8-11 tablet by ity o f tablet 00:00: mouth (four) Medical times Branch daily as needed for Pain (scale 7-10). methocarbam 2021-0 Yes [id number] 500mg Take 1 [facility] oL 500 mg 8-11 tablet by ity o f tablet 00:00: mouth (four) Medical times Branch daily as needed for Pain (scale 7-10). methocarbam 2021-0 Yes [id number] 500mg Take 1 [facility] oL 500 mg 8-11 tablet by ity o f tablet 00:00: mouth (four) Medical times Branch daily as needed for Pain (scale 7-10). methocarbam 2021-0 Yes [id number] 500mg Take 1 [facility] oL 500 mg 8-11 tablet by ity o f tablet 00:00: mouth (four) Medical times Branch daily as needed for Pain (scale 7-10). methocarbam 2021-0 Yes [id number] 500mg Take 1 [facility] oL 500 mg 8-11 tablet by ity o f tablet 00:00: mouth (four) Medical times Branch daily as needed for Pain (scale 7-10). methocarbam 2021-0 Yes [id number] 500mg Take 1 [facility] oL 500 mg 8-11 tablet [facility] tablet 00:00: mouth (four) Medical times Branch daily as needed for Pain (scale 7-10). methocarbam 2021-0 Yes [id number] 500mg Take 1 [facility] o[facility] 500 mg 8-11 tablet by [facility] tablet 00:00: mouth (four) Medical times Branch daily as needed for Pain (scale 7-10). methocarbam 2021-0 Yes [id number] 500mg Take 1 [facility] oL 500 mg 8-11 tablet by [facility] tablet 00:00: mouth (four) Medical times Branch daily as needed for Pain (scale 7-10). LOSARTAN 50 2021-0 Yes [id number] Take 1 [facility] mg tablet 7-20 tablet by [facility] 00:00: mouth 00 twice Medical daily Branch DILTIAZEM 2021-0 Yes [id number] Take 1 [facility] [place] 120 mg 24 7-20 capsule by [facility] capsule 00:00: mouth 00 twice Medical daily Branch LOSARTAN 50 2021-0 Yes [id number] Take 1 [facility] mg tablet 7-20 tablet by [facility] f 00:00: mouth [place] 00 twice Medical daily Branch DILTIAZEM 2021-0 Yes [id number] Take 1 [facility] [place] 120 mg 24 7-20 capsule by [facility] capsule 00:00: mouth twice Medical daily Branch LOSARTAN 50 2021-0 Yes [id number] Take 1 [facility] mg tablet 7-20 tablet by [facility] f 00:00: mouth twice Medical daily Branch DILTIAZEM 2021-0 Yes [id number] Take 1 [facility] [place] 120 mg 24 7-20 capsule by [facility] capsule 00:00: mouth twice Medical daily Branch LOSARTAN 50 2021-0 Yes [id number] Take 1 [facility] mg tablet 7-20 tablet by [facility] f 00:00: mouth twice Medical daily Branch DILTIAZEM 2021-0 Yes [id number] Take 1 [facility] [place] 120 mg 24 7-20 capsule by [facility] capsule 00:00: mouth twice Medical daily Branch LOSARTAN 50 2021-0 Yes [id number] Take 1 [facility] mg tablet 7-20 tablet by [facility] f 00:00: twice Medical daily Branch DILTIAZEM 2021-0 Yes [id number] Take 1 [facility] [place] 120 mg 24 7-20 capsule by [facility] capsule 00:00: mouth twice Medical daily Branch LOSARTAN 50 2021-0 Yes [id number] Take 1 [facility] mg tablet 7-20 tablet by [facility] f 00:00: mouth twice Medical daily Branch DILTIAZEM 2021-0 Yes [id number] Take 1 [facility] [place] 120 mg 24 7-20 capsule by [facility] capsule 00:00: twice Medical daily Branch LOSARTAN 50 2021-0 Yes [id number] Take 1 [facility] mg tablet 7-20 tablet by [facility] f 00:00: mouth twice Medical daily Branch DILTIAZEM 2021-0 Yes [id number] Take 1 [facility] [place] 120 mg 24 7-20 capsule by [facility] capsule 00:00: mouth twice Medical daily Branch LOSARTAN 50 2021-0 Yes [id number] Take 1 [facility] mg tablet 7-20 tablet by [facility] f 00:00: mouth twice Medical daily Branch DILTIAZEM 2021-0 Yes [id number] Take 1 [facility] [place] 120 mg 24 7-20 capsule by [facility] capsule 00:00: mouth twice Medical daily Branch LOSARTAN 50 2021-0 Yes [id number] Take 1 [facility] mg tablet 7-20 tablet by [facility] f 00:00: mouth twice Medical daily Branch DILTIAZEM 2021-0 Yes [id number] Take 1 [facility] [place] 120 mg 24 7-20 capsule by [facility] capsule 00:00: mouth twice Medical daily Branch LOSARTAN 50 2021-0 Yes [id number] Take 1 [facility] mg tablet 7-20 tablet by [facility] f 00:00: mouth twice Medical daily Branch DILTIAZEM 2021-0 Yes [id number] Take 1 [facility] [place] 120 mg 24 7-20 capsule by [facility] capsule 00:00: mouth twice Medical daily Branch LOSARTAN 50 2021-0 Yes [id number] Take 1 [facility] mg tablet 7-20 tablet by [facility] f 00:00: mouth twice Medical daily Branch DILTIAZEM 2021-0 Yes [id number] Take 1 [facility] [place] 120 mg 24 7-20 capsule by [facility] capsule 00:00: mouth twice Medical daily Branch LOSARTAN 50 2021-0 Yes [id number] Take 1 [facility] mg tablet 7-20 tablet by [facility] f 00:00: mouth twice Medical daily Branch DILTIAZEM 2021-0 Yes [id number] Take 1 [facility] [place] 120 mg 24 7-20 capsule by [facility] capsule 00:00: mouth twice Medical daily Branch LOSARTAN 50 2021-0 Yes [id number] Take 1 [facility] mg tablet 7-20 tablet by [facility] f 00:00: mouth twice Medical daily Branch DILTIAZEM 2021-0 Yes [id number] Take 1 [facility] [place] 120 mg 24 7-20 capsule by [facility] capsule 00:00: mouth twice Medical daily Branch LOSARTAN 50 2021-0 Yes [id number] Take 1 [facility] mg tablet 7-20 tablet by [facility] f 00:00: mouth twice Medical daily Branch DILTIAZEM 2021-0 Yes [id number] Take 1 [facility] [place] 120 mg 24 7-20 capsule by [facility] capsule 00:00: mouth twice Medical daily Branch LOSARTAN 50 2021-0 Yes [id number] Take 1 [facility] mg tablet 7-20 tablet by [facility] f 00:00: mouth twice Medical daily Branch DILTIAZEM 2022-0 Yes [id number] Take 1 [facility] [place] 120 mg 24 7-20 capsule by [facility] capsule 00:00: mouth twice Medical daily Branch LOSARTAN 50 2021-0 Yes [id number] Take 1 [facility] mg tablet 7-20 tablet by [facility] f 00:00: mouth twice Medical daily Branch DILTIAZEM 2021-0 Yes [id number] Take 1 [facility] [place] 120 mg 24 7-20 capsule by [facility] capsule 00:00: mouth twice Medical daily Branch LOSARTAN 50 2021-0 Yes [id number] Take 1 [facility] mg tablet 7-20 tablet by [facility] 00:00: mouth twice Medical daily Branch DILTIAZEM 2021-0 Yes [id number] Take 1 [facility] [place] 120 mg 24 7-20 capsule by [facility] capsule 00:00: mouth twice Medical daily Branch LOSARTAN 50 2021-0 Yes [id number] Take 1 [facility] mg tablet 7-20 tablet by [facility] f 00:00: mouth twice Medical daily Branch DILTIAZEM 2021-0 Yes [id number] Take 1 [facility] [place] 120 mg 24 7-20 capsule by [facility] capsule 00:00: mouth twice Medical daily Branch LOSARTAN 50 2021-0 Yes [id number] Take 1 [facility] mg tablet 7-20 tablet by [facility] f 00:00: mouth twice Medical daily Branch DILTIAZEM 2021-0 Yes [id number] Take 1 [facility] [place] 120 mg 24 7-20 capsule by [facility] capsule 00:00: mouth twice Medical daily Branch LOSARTAN 50 2021-0 Yes [id number] Take 1 [facility] mg tablet 7-20 tablet by [facility] 00:00: mouth twice Medical daily Branch DILTIAZEM 2021-0 Yes [id number] Take 1 [facility] [place] 120 mg 24 7-20 capsule by [facility] capsule 00:00: mouth twice Medical daily Branch LOSARTAN 50 2021-0 Yes [id number] Take 1 [facility] mg tablet 7-20 tablet by [facility] 00:00: mouth twice Medical daily Branch DILTIAZEM 2021-0 Yes [id number] Take 1 [facility] [place] 120 mg 24 7-20 capsule by [facility] capsule 00:00: mouth twice Medical daily Branch LOSARTAN 50 2021-0 Yes [id number] Take 1 [facility] mg tablet 7-20 tablet by [facility] 00:00: mouth twice Medical daily Branch DILTIAZEM 2-0 Yes [id number] Take 1 [facility] [place] 120 mg 24 7-20 capsule by [facility] capsule 00:00: mouth twice Medical daily Branch LOSARTAN 50 2021-0 Yes [id number] Take 1 [facility] mg tablet 7-20 tablet by [facility] 00:00: mouth twice Medical daily Branch DILTIAZEM 2021-0 Yes [id number] Take 1 [facility] [place] 120 mg 24 7-20 capsule by [facility] capsule 00:00: mouth twice Medical daily Branch LOSARTAN 50 2021-0 Yes [id number] Take 1 [facility] mg tablet 7-20 tablet by [facility] 00:00: mouth twice Medical daily Branch DILTIAZEM 2021-0 Yes [id number] Take 1 [facility] [place] 120 mg 24 7-20 capsule by [facility] capsule 00:00: mouth twice Medical daily Branch LOSARTAN 50 2021-0 Yes [id number] Take 1 [facility] mg tablet 7-20 tablet by [facility] 00:00: mouth twice Medical daily Branch DILTIAZEM 2021-0 Yes [id number] Take 1 [facility] [place] 120 mg 24 7-20 capsule by [facility] capsule 00:00: mouth twice Medical daily Branch LOSARTAN 50 2021-0 Yes [id number] Take 1 [facility] mg tablet 7-20 tablet by [facility] 00:00: mouth twice Medical daily Branch DILTIAZEM 2021-0 Yes [id number] Take 1 [facility] [place] 120 mg 24 7-20 capsule by [facility] capsule 00:00: mouth twice Medical daily Branch LOSARTAN 50 2-0 Yes [id number] Take 1 [facility] mg tablet 7-20 tablet by [facility] 00:00: mouth twice Medical daily Branch DILTIAZEM 2-0 Yes [id number] Take 1 [facility] [place] 120 mg 24 7-20 capsule by [facility] capsule 00:00: mouth twice Medical daily Branch LOSARTAN 50 2021-0 Yes [id number] Take 1 [facility] mg tablet 7-20 tablet by [facility] 00:00: mouth twice Medical daily Branch DILTIAZEM 2021-0 Yes [id number] Take 1 [facility] [place] 120 mg 24 7-20 capsule by [facility] capsule 00:00: mouth [place] 00 twice Medical daily Branch LOSARTAN 50 2021-0 Yes [id number] Take 1 [facility] mg tablet 7-20 tablet by [facility] f 00:00: mouth 00 twice Medical daily Branch DILTIAZEM 2021-0 Yes [id number] Take 1 [facility] [place] 120 mg 24 7-20 capsule by [facility] capsule 00:00: mouth twice Medical daily Branch LOSARTAN 50 2021-0 Yes [id number] Take 1 [facility] mg tablet 7-20 tablet by [facility] 00:00: mouth 00 twice Medical daily Branch DILTIAZEM 2021-0 Yes [id number] Take 1 [facility] [place] 120 mg 24 7-20 capsule by [facility] capsule 00:00: mouth twice Medical daily Branch LOSARTAN 50 2021-0 Yes [id number] Take 1 [facility] mg tablet 7-20 tablet by [facility] 00:00: mouth 00 twice Medical daily Branch DILTIAZEM 2021-0 Yes [id number] Take 1 [facility] [place] 120 mg 24 7-20 capsule by [facility] capsule 00:00: mouth 00 twice Medical daily Branch LOSARTAN 50 2021-0 Yes [id number] Take 1 [facility] mg tablet 7-20 tablet by [facility] 00:00: mouth 00 twice Medical daily Branch DILTIAZEM 2021-0 Yes [id number] Take 1 [facility] [place] 120 mg 24 7-20 capsule by [facility] capsule 00:00: mouth 00 twice Medical daily Branch LOSARTAN 50 2021-0 2- No [id number] Take 1 [facility] mg tablet 7-20 10-13 tablet by [facility] of 00:00: 00:00 mouth [place] 00 :00 twice Medical daily Branch DILTIAZEM 2-0 2021- No [id number] Take 1 [facility] 120 mg 24 7-20 10-13 capsule by [facility] capsule 00:00: 00:00 mouth [place] 00 :00 twice Medical daily Branch methocarbam 2021-0 Yes [id number] 500mg Take 1 [facility] oL 500 mg 7-02 tablet by [facility] tablet 00:00: mouth 00 (four) Medical times Branch daily. methocarbam 2021-0 Yes [id number] 500mg Take 1 [facility] o[facility] 500 mg 7-02 tablet by [facility] tablet 00:00: mouth 4 00 (four) Medical times Branch daily. methocarbam 2021-0 Yes [id number] 500mg Take 1 [facility] o[facility] 500 mg 7-02 tablet by [facility] tablet 00:00: mouth 4 [place] 00 (four) Medical times Branch daily. methocarbam 2-0 Yes [id number] 500mg Take 1 [facility] oL 500 mg 7-02 tablet by [facility] tablet 00:00: mouth 4 [place] 00 (four) Medical times Branch daily. methocarbam 2021-0 Yes [id number] 500mg Take 1 [facility] oL 500 mg 7-02 tablet by [facility] tablet 00:00: mouth 4 [place] 00 (four) Medical times Branch daily. methocarbam 2021-0 2022- No [id number] 500mg Take 1 [facility] oL 500 mg 7-02 08-11 tablet by [facility] tablet 00:00: 00:00 mouth 4 [place] 00 :00 (four) Medical times Branch daily. SUMATRIPTAN 2021-0 Yes [id number] TAKE 1 [facility] 50 mg 6-17 TABLET BY [facility] tablet 00:00: MOUTH [place] 00 NEEDED FOR Medical MIGRAINE Branch HEADACHE (MAY REPEAT IN TWO HOURS) SUMATRIPTAN 2021-0 Yes [id number] TAKE 1 [facility] 50 mg 6-17 TABLET BY [facility] tablet 00:00: MOUTH [place] 00 NEEDED FOR Medical MIGRAINE Branch HEADACHE (MAY REPEAT IN TWO HOURS) SUMATRIPTAN 2021-0 Yes [id number] TAKE 1 [facility] 50 mg 6-17 TABLET BY [facility] tablet 00:00: MOUTH [place] 00 NEEDED FOR Medical MIGRAINE Branch HEADACHE (MAY REPEAT IN TWO HOURS) SUMATRIPTAN 2-0 Yes [id number] TAKE 1 [facility] 50 mg 6-17 TABLET BY [facility] tablet 00:00: MOUTH [place] 00 NEEDED FOR Medical MIGRAINE Branch HEADACHE (MAY REPEAT IN TWO HOURS) SUMATRIPTAN 2-0 Yes [id number] TAKE 1 [facility] 50 mg 6-17 TABLET BY [facility] tablet 00:00: MOUTH [place] 00 NEEDED FOR Medical MIGRAINE Branch HEADACHE (MAY REPEAT IN TWO HOURS) SUMATRIPTAN 2-0 Yes [id number] TAKE 1 [facility] 50 mg 6-17 TABLET BY [facility] tablet 00:00: MOUTH [place] 00 NEEDED FOR Medical MIGRAINE Branch HEADACHE (MAY REPEAT IN TWO HOURS) SUMATRIPTAN 2-0 Yes [id number] TAKE 1 [facility] 50 mg 6-17 TABLET BY [facility] tablet 00:00: MOUTH [place] 00 NEEDED FOR Medical MIGRAINE Branch HEADACHE (MAY REPEAT IN TWO HOURS) SUMATRIPTAN 2022-0 Yes [id number] TAKE 1 [facility] 50 mg 6-17 TABLET BY [facility] tablet 00:00: MOUTH [place] 00 NEEDED FOR Medical MIGRAINE Branch HEADACHE (MAY REPEAT IN TWO HOURS) SUMATRIPTAN 2022-0 Yes [id number] TAKE 1 [facility] 50 mg 6-17 TABLET BY [facility] tablet 00:00: MOUTH [place] 00 NEEDED FOR Medical MIGRAINE Branch HEADACHE (MAY REPEAT IN TWO HOURS) SUMATRIPTAN 2022-0 Yes [id number] TAKE 1 [facility] 50 mg 6-17 TABLET BY [facility] tablet 00:00: MOUTH [place] 00 NEEDED FOR Medical MIGRAINE Branch HEADACHE (MAY REPEAT IN TWO HOURS) SUMATRIPTAN 2022-0 Yes [id number] TAKE 1 [facility] 50 mg 6-17 TABLET BY [facility] tablet 00:00: MOUTH [place] 00 NEEDED FOR Medical MIGRAINE Branch HEADACHE (MAY REPEAT IN TWO HOURS) SUMATRIPTAN 2022-0 Yes [id number] TAKE 1 [facility] 50 mg 6-17 TABLET BY [facility] tablet 00:00: MOUTH [place] 00 NEEDED FOR Medical MIGRAINE Branch HEADACHE (MAY REPEAT IN TWO HOURS) SUMATRIPTAN 2-0 Yes [id number] TAKE 1 [facility] 50 mg 6-17 TABLET BY [facility] tablet 00:00: MOUTH [place] 00 NEEDED FOR Medical MIGRAINE Branch HEADACHE (MAY REPEAT IN TWO HOURS) SUMATRIPTAN 2022-0 Yes [id number] TAKE 1 [facility] 50 mg 6-17 TABLET BY [facility] tablet 00:00: MOUTH [place] 00 NEEDED FOR Medical MIGRAINE Branch HEADACHE (MAY REPEAT IN TWO HOURS) SUMATRIPTAN 2022-0 Yes [id number] TAKE 1 [facility] 50 mg 6-17 TABLET BY [facility] tablet 00:00: MOUTH [place] 00 NEEDED FOR Medical MIGRAINE Branch HEADACHE (MAY REPEAT IN TWO HOURS) SUMATRIPTAN 2022-0 Yes [id number] TAKE 1 [facility] 50 mg 6-17 TABLET BY [facility] tablet 00:00: MOUTH [place] 00 NEEDED FOR Medical MIGRAINE Branch HEADACHE (MAY REPEAT IN TWO HOURS) SUMATRIPTAN 2022-0 Yes [id number] TAKE 1 [facility] 50 mg 6-17 TABLET BY [facility] tablet 00:00: MOUTH [place] 00 NEEDED FOR Medical MIGRAINE Branch HEADACHE (MAY REPEAT IN TWO HOURS) SUMATRIPTAN 2021-0 2- No [id number] TAKE 1 [facility] 50 mg 6-17 09-06 TABLET BY [facility] tablet 00:00: 00:00 MOUTH [place] 00 :00 NEEDED FOR Medical MIGRAINE Branch HEADACHE (MAY REPEAT IN TWO HOURS) SUMATRIPTAN 2021-0 2- No [id number] TAKE 1 [facility] 50 mg 6-17 -06 TABLET BY [facility] tablet 00:00: 00:00 MOUTH [place] 00 :00 NEEDED FOR Medical MIGRAINE Branch HEADACHE (MAY REPEAT IN TWO HOURS) fexofenadin 2021-0 Yes [id number] 180mg Take 1 [facility] e (LUIS 6-13 tablet by [facility] ALLERGY) 00:00: mouth [place] 180 mg 00 daily. Medical tablet Branch fexofenadin 2021-0 Yes [id number] 180mg Take 1 [facility] e (LUIS 6-13 tablet by [facility] ALLERGY) 00:00: mouth [place] 180 mg 00 daily. Medical tablet Branch fexofenadin 2021-0 Yes [id number] 180mg Take 1 [facility] e (LUIS 6-13 tablet by [facility] ALLERGY) 00:00: mouth [place] 180 mg 00 daily. Medical tablet Branch fexofenadin 2021-0 Yes [id number] 180mg Take 1 [facility] e (LUIS 6-13 tablet by [facility] ALLERGY) 00:00: mouth [place] 180 mg 00 daily. Medical tablet Branch fexofenadin 2021-0 Yes [id number] 180mg Take 1 [facility] e (LUIS 6-13 tablet by [facility] ALLERGY) 00:00: mouth [place] 180 mg 00 daily. Medical tablet Branch fexofenadin 2021-0 Yes [id number] 180mg Take 1 [facility] e (LUIS 6-13 tablet by [facility] ALLERGY) 00:00: mouth [place] 180 mg 00 daily. Medical tablet Branch fexofenadin 2021-0 Yes [id number] 180mg Take 1 [facility] e (LUIS 6-13 tablet by [facility] ALLERGY) 00:00: mouth [place] 180 mg 00 daily. Medical tablet Branch fexofenadin 2021-0 Yes [id number] 180mg Take 1 [facility] e (LUIS 6-13 tablet by [facility] ALLERGY) 00:00: mouth [place] 180 mg 00 daily. Medical tablet Branch fexofenadin 0 Yes [id number] 180mg Take 1 [facility] e (LUIS 6-13 tablet by [facility] ALLERGY) 00:00: mouth [place] 180 mg 00 daily. Medical tablet Branch fexofenadin Yes [id number] 180mg Take 1 [facility] e (LUIS 6-13 tablet by [facility] ALLERGY) 00:00: mouth [place] 180 mg 00 daily. Medical tablet Branch fexofenadin 0 Yes [id number] 180mg Take 1 [facility] e (LUIS 6-13 tablet by [facility] ALLERGY) 00:00: mouth [place] 180 mg 00 daily. Medical tablet Branch fexofenadin Yes [id number] 180mg Take 1 [facility] e (LUIS 6-13 tablet by [facility] ALLERGY) 00:00: mouth [place] 180 mg 00 daily. Medical tablet Branch fexofenadin Yes [id number] 180mg Take 1 [facility] e (LUIS 6-13 tablet by [facility] ALLERGY) 00:00: mouth [place] 180 mg 00 daily. Medical tablet Branch fexofenadin Yes [id number] 180mg Take 1 [facility] e (LUIS 6-13 tablet by [facility] ALLERGY) 00:00: mouth [place] 180 mg 00 daily. Medical tablet Branch fexofenadin Yes [id number] 180mg Take 1 [facility] e (LUIS 6-13 tablet by [facility] ALLERGY) 00:00: mouth [place] 180 mg 00 daily. Medical tablet Branch fexofenadin Yes [id number] 180mg Take 1 [facility] e (LUIS 6-13 tablet by [facility] ALLERGY) 00:00: mouth [place] 180 mg 00 daily. Medical tablet Branch fexofenadin Yes [id number] 180mg Take 1 [facility] e (LUIS 6-13 tablet by [facility] ALLERGY) 00:00: mouth [place] 180 mg 00 daily. Medical tablet Branch fexofenadin Yes [id number] 180mg Take 1 [facility] e (LUIS 6-13 tablet by [facility] ALLERGY) 00:00: mouth [place] 180 mg 00 daily. Medical tablet Branch fexofenadin Yes [id number] 180mg Take 1 [facility] e (LUIS 6-13 tablet by [facility] ALLERGY) 00:00: mouth [place] 180 mg 00 daily. Medical tablet Branch fexofenadin 2021-0 Yes [id number] 180mg Take 1 [facility] e (LUIS 6-13 tablet by [facility] ALLERGY) 00:00: mouth [place] 180 mg 00 daily. Medical tablet Branch fexofenadin 0 Yes [id number] 180mg Take 1 [facility] e (LUIS 6-13 tablet by [facility] ALLERGY) 00:00: mouth [place] 180 mg 00 daily. Medical tablet Branch fexofenadin 0 Yes [id number] 180mg Take 1 [facility] e (LUIS 6-13 tablet by [facility] ALLERGY) 00:00: mouth [place] 180 mg 00 daily. Medical tablet Branch fexofenadin 0 Yes [id number] 180mg Take 1 [facility] e (LUIS 6-13 tablet by [facility] ALLERGY) 00:00: mouth [place] 180 mg 00 daily. Medical tablet Branch fexofenadin Yes [id number] 180mg Take 1 [facility] e (LUIS 6-13 tablet by [facility] ALLERGY) 00:00: mouth [place] 180 mg 00 daily. Medical tablet Branch fexofenadin Yes [id number] 180mg Take 1 [facility] e (LUIS 6-13 tablet by [facility] ALLERGY) 00:00: mouth [place] 180 mg 00 daily. Medical tablet Branch fexofenadin 0 Yes [id number] 180mg Take 1 [facility] e (LUIS 6-13 tablet by [facility] ALLERGY) 00:00: mouth [place] 180 mg 00 daily. Medical tablet Branch fexofenadin 0 Yes [id number] 180mg Take 1 [facility] e (LUIS 6-13 tablet by [facility] ALLERGY) 00:00: mouth [place] 180 mg 00 daily. Medical tablet Branch fexofenadin 0 Yes [id number] 180mg Take 1 [facility] e (LUIS 6-13 tablet by [facility] ALLERGY) 00:00: mouth [place] 180 mg 00 daily. Medical tablet Branch fexofenadin 0 Yes [id number] 180mg Take 1 [facility] e (LUIS 6-13 tablet by [facility] ALLERGY) 00:00: mouth [place] 180 mg 00 daily. Medical tablet Branch fexofenadin 2021-0 Yes [id number] 180mg Take 1 [facility] e (LUIS 6-13 tablet by [facility] ALLERGY) 00:00: mouth [place] 180 mg 00 daily. Medical tablet Branch fexofenadin 0 Yes [id number] 180mg Take 1 [facility] e (LUIS 6-13 tablet by [facility] ALLERGY) 00:00: mouth [place] 180 mg 00 daily. Medical tablet Branch fexofenadin 0 Yes [id number] 180mg Take 1 [facility] e (LUIS 6-13 tablet by [facility] ALLERGY) 00:00: mouth [place] 180 mg 00 daily. Medical tablet Branch fexofenadin 0 Yes [id number] 180mg Take 1 [facility] e (LUIS 6-13 tablet by [facility] ALLERGY) 00:00: mouth [place] 180 mg 00 daily. Medical tablet Branch fexofenadin Yes [id number] 180mg Take 1 [facility] e (LUIS 6-13 tablet by [facility] ALLERGY) 00:00: mouth [place] 180 mg 00 daily. Medical tablet Branch fexofenadin Yes [id number] 180mg Take 1 [facility] e (LUIS 6-13 tablet by [facility] ALLERGY) 00:00: mouth [place] 180 mg 00 daily. Medical tablet Branch fexofenadin Yes [id number] 180mg Take 1 [facility] e (LUIS 6-13 tablet by [facility] ALLERGY) 00:00: mouth [place] 180 mg 00 daily. Medical tablet Branch fexofenadin Yes [id number] 180mg Take 1 [facility] e (LUIS 6-13 tablet by [facility] ALLERGY) 00:00: mouth [place] 180 mg 00 daily. Medical tablet Branch fexofenadin 0 Yes [id number] 180mg Take 1 [facility] e (LUIS 6-13 tablet by [facility] ALLERGY) 00:00: mouth [place] 180 mg 00 daily. Medical tablet Branch fexofenadin 0 Yes [id number] 180mg Take 1 [facility] e (LUIS 6-13 tablet by [facility] ALLERGY) 00:00: mouth [place] 180 mg 00 daily. Medical tablet Branch fexofenadin 0 Yes [id number] 180mg Take 1 [facility] e (LUIS 6-13 tablet by [facility] ALLERGY) 00:00: mouth [place] 180 mg 00 daily. Medical tablet Branch fexofenadin 0 Yes [id number] 180mg Take 1 [facility] e (LUIS 6-13 tablet by [facility] ALLERGY) 00:00: mouth [place] 180 mg 00 daily. Medical tablet Branch fexofenadin Yes [id number] 180mg Take 1 [facility] e (LUIS 6-13 tablet by [facility] of ALLERGY) 00:00: mouth [place] 180 mg 00 daily. Medical tablet Branch fexofenadin Yes [id number] 180mg Take 1 [facility] e (LUIS 6-13 tablet by [facility] of ALLERGY) 00:00: mouth [place] 180 mg 00 daily. Medical tablet Branch fexofenadin Yes [id number] 180mg Take 1 [facility] e (LUIS 6-13 tablet by [facility] of ALLERGY) 00:00: mouth [place] 180 mg 00 daily. Medical tablet Branch fexofenadin Yes [id number] 180mg Take 1 [facility] e (LUIS 6-13 tablet by [facility] of ALLERGY) 00:00: mouth [place] 180 mg 00 daily. Medical tablet Branch fexofenadin Yes [id number] 180mg Take 1 [facility] e (LUIS 6-13 tablet by [facility] of ALLERGY) 00:00: mouth [place] 180 mg 00 daily. Medical tablet Branch fexofenadin Yes [id number] 180mg Take 1 [facility] e (LUIS 6-13 tablet by [facility] of ALLERGY) 00:00: mouth [place] 180 mg 00 daily. Medical tablet Branch fexofenadin Yes [id number] 180mg Take 1 [facility] e (LUIS 6-13 tablet by [facility] of ALLERGY) 00:00: mouth [place] 180 mg 00 daily. Medical tablet Branch fexofenadin Yes [id number] 180mg Take 1 [facility] e (LUIS 6-13 tablet by [facility] of ALLERGY) 00:00: mouth [place] 180 mg 00 daily. Medical tablet Branch fexofenadin Yes [id number] 180mg Take 1 [facility] e (LUIS 6-13 tablet by [facility] of ALLERGY) 00:00: mouth [place] 180 mg 00 daily. Medical tablet Branch fexofenadin Yes [id number] 180mg Take 1 [facility] e (LUIS 6-13 tablet by [facility] of ALLERGY) 00:00: mouth [place] 180 mg 00 daily. Medical tablet Branch fexofenadin Yes [id number] 180mg Take 1 [facility] e (LUIS 6-13 tablet by [facility] of ALLERGY) 00:00: mouth [place] 180 mg 00 daily. Medical tablet Branch fexofenadin Yes [id number] 180mg Take 1 [facility] e (LUIS 6-13 tablet by [facility] of ALLERGY) 00:00: mouth [place] 180 mg 00 daily. Medical tablet Branch fexofenadin Yes [id number] 180mg Take 1 [facility] e (LUIS 6-13 tablet by [facility] of ALLERGY) 00:00: mouth [place] 180 mg 00 daily. Medical tablet Branch rosuvastati Yes [id number] 10mg Take 1 [facility] n 10 mg 6-08 tablet by [facility] tablet 00:00: mouth at [place] 00 bedtime. Medical Branch rosuvastati Yes [id number] 10mg Take 1 [facility] n 10 mg 6-08 tablet by [facility] of tablet 00:00: mouth at [place] 00 bedtime. Medical Branch rosuvastati Yes [id number] 10mg Take 1 [facility] n 10 mg 6-08 tablet by [facility] tablet 00:00: mouth at [place] 00 bedtime. Medical Branch rosuvastati Yes [id number] 10mg Take 1 [facility] n 10 mg 6-08 tablet by [facility] of tablet 00:00: mouth at [place] 00 bedtime. Medical Branch rosuvastati Yes [id number] 10mg Take 1 [facility] n 10 mg 6-08 tablet by [facility] of tablet 00:00: mouth at [place] 00 bedtime. Medical Branch rosuvastati Yes [id number] 10mg Take 1 [facility] n 10 mg 6-08 tablet by [facility] of tablet 00:00: mouth at [place] 00 bedtime. Medical Branch rosuvastati Yes [id number] 10mg Take 1 [facility] n 10 mg 6-08 tablet by [facility] of tablet 00:00: mouth at [place] 00 bedtime. Medical Branch rosuvastati Yes [id number] 10mg Take 1 [facility] n 10 mg 6-08 tablet by [facility] of tablet 00:00: mouth at [place] 00 bedtime. Medical Branch rosuvastati Yes [id number] 10mg Take 1 [facility] n 10 mg 6-08 tablet by [facility] tablet 00:00: mouth at [place] 00 bedtime. Medical Branch rosuvastati 2022-0 Yes [id number] 10mg Take 1 [facility] n 10 mg 6-08 tablet by [facility] tablet 00:00: mouth at [place] bedtime. Medical Branch rosuvastati 2021-0 Yes [id number] 10mg Take 1 [facility] n 10 mg 6-08 tablet by [facility] tablet 00:00: mouth at [place] bedtime. Medical Branch rosuvastati 2021-0 Yes [id number] 10mg Take 1 [facility] n 10 mg 6-08 tablet by [facility] tablet 00:00: mouth at [place] bedtime. Medical Branch rosuvastati 2021-0 Yes [id number] 10mg Take 1 [facility] n 10 mg 6-08 tablet by [facility] tablet 00:00: mouth at [place] bedtime. Medical Branch rosuvastati 2021-0 Yes [id number] 10mg Take 1 [facility] n 10 mg 6-08 tablet by [facility] of tablet 00:00: mouth at [place] bedtime. Medical Branch rosuvastati 2021-0 Yes [id number] 10mg Take 1 [facility] n 10 mg 6-08 tablet by [facility] tablet 00:00: mouth at [place] [address] bedtime. Medical Branch rosuvastati 2021-0 Yes [id number] 10mg Take 1 [facility] n 10 mg 6-08 tablet by [facility] tablet 00:00: mouth at [place] [address] bedtime. Medical Branch rosuvastati 2021- Yes [id number] 10mg Take 1 [facility] n 10 mg 6-08 tablet by [facility] tablet 00:00: mouth at [place] [address] bedtime. Medical Branch rosuvastati 2021-0 Yes [id number] 10mg Take 1 [facility] n 10 mg 6-08 tablet by [facility] tablet 00:00: mouth at [place] [address] bedtime. Medical Branch rosuvastati 2021-0 Yes [id number] 10mg Take 1 [facility] n 10 mg 6-08 tablet by [facility] tablet 00:00: mouth at [place] [address] bedtime. Medical Branch rosuvastati 2-0 Yes [id number] 10mg Take 1 [facility] n 10 mg 6-08 tablet by [facility] tablet 00:00: mouth at [place] [address] bedtime. Medical Branch rosuvastati 2-0 Yes [id number] 10mg Take 1 [facility] n 10 mg 6-08 tablet by [facility] tablet 00:00: mouth at [place] [address] bedtime. Medical Branch rosuvastati 2022-0 Yes [id number] 10mg Take 1 [facility] n 10 mg 6-08 tablet by [facility] tablet 00:00: mouth at [place] 00 bedtime. Medical Branch rosuvastati Yes [id number] 10mg Take 1 [facility] n 10 mg 6-08 tablet by ity of tablet 00:00: mouth at [place] bedtime. Medical Branch rosuvastati Yes [id number] 10mg Take 1 [facility] n 10 mg 6-08 tablet by ity of tablet 00:00: mouth at [place] bedtime. Medical Branch rosuvastati Yes [id number] 10mg Take 1 [facility] n 10 mg 6-08 tablet by ity of tablet 00:00: mouth at [place] bedtime. Medical Branch rosuvastati Yes [id number] 10mg Take 1 [facility] n 10 mg 6-08 tablet by ity of tablet 00:00: mouth at [place] bedtime. Medical Branch rosuvastati Yes [id number] 10mg Take 1 [facility] n 10 mg 6-08 tablet by ity of tablet 00:00: mouth at [place] bedtime. Medical Branch rosuvastati Yes [id number] 10mg Take 1 [facility] n 10 mg 6-08 tablet by ity of tablet 00:00: mouth at [place] bedtime. Medical Branch rosuvastati Yes [id number] 10mg Take 1 [facility] n 10 mg 6-08 tablet by ity of tablet 00:00: mouth at [place] [address] bedtime. Medical Branch rosuvastati 2021- Yes [id number] 10mg Take 1 [facility] n 10 mg 6-08 tablet by ity of tablet 00:00: mouth at [place] [address] bedtime. Medical Branch rosuvastati Yes [id number] 10mg Take 1 [facility] n 10 mg 6-08 tablet by ity of tablet 00:00: mouth at [place] bedtime. Medical Branch rosuvastati 2021-0 Yes [id number] 10mg Take 1 [facility] n 10 mg 6-08 tablet by ity of tablet 00:00: mouth at [place] 00 bedtime. Medical Branch rosuvastati 2021- Yes [id number] 10mg Take 1 [facility] n 10 mg 6-08 tablet by ity of tablet 00:00: mouth at [place] 00 bedtime. Medical Branch rosuvastati 2021- Yes [id number] 10mg Take 1 [facility] n 10 mg 6-08 tablet by ity of tablet 00:00: mouth at [place] bedtime. Medical Branch rosuvastati 0 Yes [id number] 10mg Take 1 [facility] n 10 mg 6-08 tablet by ity of tablet 00:00: mouth at [place] bedtime. Medical Branch rosuvastati 2021-0 Yes [id number] 10mg Take 1 [facility] n 10 mg 6-08 tablet by ity of tablet 00:00: mouth at [place] bedtime. [facility] Branch rosuvastati 2021- Yes [id number] 10mg Take 1 [facility] n 10 mg 6-08 tablet by ity of tablet 00:00: mouth at [place] bedtime. Medical Branch rosuvastati Yes [id number] 10mg Take 1 [facility] n 10 mg 6-08 tablet by ity of tablet 00:00: mouth at [place] bedtime. Medical Branch rosuvastati 2021-0 Yes [id number] 10mg Take 1 [facility] n 10 mg 6-08 tablet by ity of tablet 00:00: mouth at [place] bedtime. [facility] Branch rosuvastati Yes [id number] 10mg Take 1 [facility] n 10 mg 6-08 tablet by ity of tablet 00:00: mouth at [place] bedtime. Medical Branch rosuvastati Yes [id number] 10mg Take 1 [facility] n 10 mg 6-08 tablet by ity of tablet 00:00: mouth at [place] [address] bedtime. Medical Branch rosuvastati 2021-0 Yes [id number] 10mg Take 1 [facility] n 10 mg 6-08 tablet by ity of tablet 00:00: mouth at [place] [address] bedtime. Medical Branch rosuvastati 2021-0 Yes [id number] 10mg Take 1 [facility] n 10 mg 6-08 tablet by ity of tablet 00:00: mouth at [place] bedtime. Medical Branch rosuvastati 2021-0 Yes [id number] 10mg Take 1 [facility] n 10 mg 6-08 tablet by ity of tablet 00:00: mouth at [place] [address] bedtime. Medical Branch rosuvastati 2021-0 Yes [id number] 10mg Take 1 [facility] n 10 mg 6-08 tablet by ity of tablet 00:00: mouth at [place] 00 bedtime. Medical Branch rosuvastati 2021- No [id number] 10mg Take 1 [facility] n 10 mg 03-03 10-13 tablet by ity of tablet 00:00: 00:00 mouth at [place] 00 :00 bedtime. Medical Branch water for 2021- No PRN, Univers irrigation 03-02 Starting ity of irrigation 14:20: 15:50 on [place] solution 00 :03/02/22 at Medica l 0920, Branch Until Tue03/02/22 at 1050, Routine, Intra-op simethicone 2021- No PRN, [facility] rs (GAS RELIEF 03-02 Starting ity of (SIMETHICON 14:20: 15:50 on Tue E[place] as E)) 40 00 :03/02/22 at Medical mg/0.6 mL 0920, Branch drops Until Tue03/02/22 at 1050, Routine, Intra-op lactated 2021- No 1000mL at 42 [facility] rs ringers IV 03-02 06-07 mL/hr, ity of infusion 12:45: 12:59 1,000 mL, E[place] as 1,000 mL 00 :00 IV Medical Infusion, Branch ONCE, 1 dose, On Tue03/02/22 at 0745, Routine, DSU Pre-op lactated 2021- No 1000mL at 42 [facility] rs ringers IV 03-02 06-07 mL/hr, ity of infusion 12:45: 12:59 1,000 mL, [place] as 1,000 mL 00 :00 IV Medical Infusion, Branch ONCE, 1 dose, On Tue03/02/22 at 0745, Routine, DSU Pre-op FOLIC ACID Yes Take by [facility] ers ORAL 03-02 mouth ity of 11:23: daily. [address] Branch MULTIVIT Yes Take by [facility] s &MINERALS/F 03-02 mouth. ity of ERROUS FUM 11:23: [place] ([place] [address] Medical VITAMIN Branch ORAL) METHYLCELLU Yes [facility] s LOSE (FIBER 03-02 ity of THERAPY 11:23: [facility]) Medical Branch DOCUSATE Yes Take by [facility] s SODIUM 6-07 mouth. ity of (COLACE [...] Branch unit tablet CRANBERRY Yes Take by [facility] FRUIT 6-07 mouth ity of EXTRACT 11:23: daily. [place] ([place] Medical ORAL) Branch CALCIUM Yes Take by [facility] ORAL 6-07 mouth ity of 11:23: daily. [place] Medical Branch DOCOSAHEXAN Yes 1000mg Take 1,000 Univers OIC 6-07 mg by ity of ACID/EPA 11:23: mouth [place] (FISH OIL 09 daily. Medical ORAL) Branch BIOTIN ORAL Yes Take by [facility] vers 6-07 mouth. ity of 11:23: [place] Medical Branch FOLIC ACID Yes Take by [facility] ers ORAL 6-07 mouth ity of 11:23: daily. [place] Medical Branch MULTIVIT Yes Take by [facility] s &MINERALS/F 6-07 mouth. ity of ERROUS FUM 11:23: [place] (MULTI 09 Medical VITAMIN Branch ORAL) METHYLCELLU Yes [facility] s LOSE (FIBER 6-07 ity of THERAPY 11:23: [place] MISC) 09 Medical Branch DOCUSATE Yes Take by [facility] SODIUM 6-07 mouth. ity of (COLACE 11:23: [place] ORAL) 09 Medical Branch vitamin C Yes 1000mg Take 1,000 Univers with derrell 6-07 mg by ity of hips 11:23: mouth [place] (VITAMIN C) 09 daily. Medica l 1,000 mg Branch tablet cholecalcif Yes 1000U Take 1,000 Univers edmar, 6-07 Units by ity of vitamin D3, 11:23: mouth [place] (VITAMIN 09 daily. Medical D3) 1,000 Branch unit tablet CRANBERRY 2022-0 Yes Take by [facility]ive rs FRUIT 6-07 mouth ity of EXTRACT 11:23: daily. [place] ([place] Medical ORAL) Branch CALCIUM Yes Take by Univers ORAL 6-07 mouth ity of 11:23: daily. [place] Medical Branch DOCOSAHEXAN Yes 1000mg Take 1,000 Univers OIC 6-07 mg by ity of ACID/EPA 11:23: mouth [place] (FISH OIL 09 daily. Medical ORAL) Branch BIOTIN ORAL Yes Take by Uni vers 6-07 mouth. ity of 11:23: Medical Branch FOLIC ACID Yes Take by Univ ers ORAL 6-07 mouth ity of 11:23: daily. [place] Medical Branch MULTIVIT Yes Take by Univer s &MINERALS/F 6-07 mouth. ity of ERROUS FUM 11:23: [place] (MULTI 09 Medical VITAMIN Branch ORAL) METHYLCELLU Yes Univer s LOSE (FIBER 6-07 ity of THERAPY 11:23: [place] MISC) Medical Branch DOCUSATE Yes Take by Univer s SODIUM 6-07 mouth. ity of (COLACE 11:23: [place] ORAL) 09 Medical Branch vitamin C Yes 1000mg Take 1,000 Univers with derrell 6-07 mg by ity of hips 11:23: mouth [place] (VITAMIN C) 09 daily. Medica l 1,000 mg Branch tablet cholecalcif Yes 1000U Take 1,000 Univers edmar, 6-07 Units by ity of vitamin D3, 11:23: mouth [place] (VITAMIN 09 daily. Medical D3) 1,000 Branch unit tablet CRANBERRY Yes Take by [facility]ive rs FRUIT 6-07 mouth ity of EXTRACT 11:23: daily. [place] ([place] Medical ORAL) Branch CALCIUM Yes Take by Univers ORAL 6-07 mouth ity of 11:23: daily. [place] Medical Branch DOCOSAHEXAN Yes 1000mg Take 1,000 Univers OIC 6-07 mg by ity of ACID/EPA 11:23: mouth [place] (FISH OIL 09 daily. Medical ORAL) Branch BIOTIN ORAL Yes Take by Uni vers 6-07 mouth. ity of 11:23: [place] Medical Branch FOLIC ACID Yes Take by Univ ers ORAL 6-07 mouth ity of 11:23: daily. [place] [facility] MULTIVIT Yes [facility] by [facility] &MINERALS/F 6-07 mouth. ity of ERROUS FUM 11:23: (MULTI 09 Medical VITAMIN Branch ORAL) METHYLCELLU Yes [facility] LOSE (FIBER 6-07 ity of THERAPY 11:23: [facility]) 09 Medical Branch DOCUSATE Yes Take by [facility] SODIUM 6-07 mouth. ity of (COLACE 11:23: [place] ORAL) 09 Medical Branch vitamin C Yes 1000mg Take 1,000 Univers with derrell 6-07 mg by ity of hips 11:23: mouth [place] (VITAMIN C) 09 daily. Medica l 1,000 mg Branch tablet cholecalcif Yes 1000U Take 1,000 Univers edmar, 6-07 Units by ity of vitamin D3, 11:23: mouth [place] (VITAMIN 09 daily. Medical D3) 1,000 Branch unit tablet CRANBERRY Yes Take by [facility] rs FRUIT 6-07 mouth ity of EXTRACT 11:23: daily. [place] ([place] Medical ORAL) Branch CALCIUM Yes Take by Univers ORAL 6-07 mouth ity of 11:23: daily. [place] Medical Branch DOCOSAHEXAN Yes 1000mg Take 1,000 Univers OIC 6-07 mg by ity of ACID/EPA 11:23: mouth [place] (FISH OIL 09 daily. Medical ORAL) Branch BIOTIN ORAL Yes Take by [facility] vers 6-07 mouth. ity of 11:23: [place] [address] Medical Branch FOLIC ACID Yes Take by [facility] ers ORAL 6-07 mouth ity of 11:23: daily. [place] [facility] Branch MULTIVIT Yes Take by [facility] &MINERALS/F 6-07 mouth. ity of ERROUS FUM 11:23: [place] (MULTI 09 Medical VITAMIN Branch ORAL) METHYLCELLU Yes [facility] LOSE (FIBER 6-07 ity of THERAPY 11:23: [facility]) 09 Medical Branch DOCUSATE Yes Take by [facility] SODIUM 6-07 mouth. ity of (COLACE 11:23: [...] 6-07 mouth ity of EXTRACT 11:23: daily. [place] ([place] Medical ORAL) Branch CALCIUM Yes Take by Univers ORAL 6-07 mouth ity of 11:23: daily. [place] Medical Branch DOCOSAHEXAN Yes 1000mg Take 1,000 Univers OIC 6-07 mg by ity of ACID/EPA 11:23: mouth [place] (FISH OIL 09 daily. Medical ORAL) Branch BIOTIN ORAL Yes Take by Uni vers 6-07 mouth. ity of 11:23: [place] Medical Branch FOLIC ACID Yes Take by Univ ers ORAL 6-07 mouth ity of 11:23: daily. [place] Medical Branch MULTIVIT Yes Take by Univer s &MINERALS/F 6-07 mouth. ity of ERROUS FUM 11:23: [place] (MULTI 09 Medical VITAMIN Branch ORAL) METHYLCELLU Yes Univer s LOSE (FIBER 6-07 ity of THERAPY 11:23: [place] MISC) 09 Medical Branch DOCUSATE Yes Take by [facility] SODIUM 6-07 mouth. ity of (COLACE [...] CRANBERRY Yes Take by [facility] FRUIT 6-07 mouth ity of EXTRACT 11:23: daily. [place] ([place] Medical ORAL) Branch CALCIUM 2022-0 Yes Take by Univers ORAL 6-07 mouth ity of 11:23: daily. [place] Medical Branch DOCOSAHEXAN Yes 1000mg Take 1,000 Univers OIC 6-07 mg by ity of ACID/EPA 11:23: mouth [place] (FISH OIL 09 daily. Medical ORAL) Branch BIOTIN ORAL Yes Take by Uni vers 6-07 mouth. ity of 11:23: Medical Branch FOLIC ACID Yes Take by Univ ers ORAL 6-07 mouth ity of 11:23: daily. [place] Medical Branch MULTIVIT Yes Take by Univer s &MINERALS/F 6-07 mouth. ity of ERROUS FUM 11:23: [place] (MULTI 09 Medical VITAMIN Branch ORAL) METHYLCELLU Yes [facility] s LOSE (FIBER 6-07 ity of THERAPY 11:23: [place] MISC) 09 Medical Branch DOCUSATE Yes Take by [facility] SODIUM 6-07 mouth. ity of (COLACE 11:23: [place] ORAL) 09 Medical Branch vitamin C Yes 1000mg Take 1,000 Univers with derrell 6-07 mg by ity of hips 11:23: mouth [place] (VITAMIN C) 09 daily. Medica l 1,000 mg Branch tablet cholecalcif Yes 1000U Take 1,000 Univers edmar, 6-07 Units by ity of vitamin D3, 11:23: mouth [place] (VITAMIN 09 daily. Medical D3) 1,000 Branch unit tablet CRANBERRY Yes Take by [facility] rs FRUIT 6-07 mouth ity of EXTRACT 11:23: daily. [place] ([place] Medical ORAL) Branch CALCIUM Yes Take by Univers ORAL 6-07 mouth ity of 11:23: daily. [place] Medical Branch DOCOSAHEXAN Yes 1000mg Take 1,000 Univers OIC 6-07 mg by ity of ACID/EPA 11:23: mouth [place] (FISH OIL 09 daily. Medical ORAL) Branch BIOTIN ORAL Yes Take by Uni vers 6-07 mouth. ity of 11:23: Medical Branch FOLIC ACID Yes Take by Univ ers ORAL 6-07 mouth ity of 11:23: daily. [place] Medical Branch MULTIVIT Yes Take by Univer s &MINERALS/F 6-07 mouth. ity of ERROUS FUM 11:23: [place] (MULTI 09 Medical VITAMIN Branch ORAL) METHYLCELLU Yes Univer s LOSE (FIBER 6-07 ity of THERAPY 11:23: [facility]) 09 Medical Branch DOCUSATE Yes Take [...] by ity of vitamin D3, 11:23: mouth [place] (VITAMIN 09 daily. Medical D3) 1,000 Branch unit tablet CRANBERRY Yes Take by [facility] FRUIT 6-07 mouth ity of EXTRACT 11:23: daily. [place] ([place] 09 Medical ORAL) Branch CALCIUM Yes Take by Univers ORAL 6-07 mouth ity of 11:23: daily. [place] Medical Branch DOCOSAHEXAN Yes 1000mg Take 1,000 Univers OIC 6-07 mg by ity of ACID/EPA 11:23: mouth [place] (FISH OIL 09 daily. Medical ORAL) Branch BIOTIN ORAL Yes Take by Uni vers 6-07 mouth. ity of 11:23: [place] [address] Medical Branch FOLIC ACID Yes Take by Univ ers ORAL 6-07 mouth ity of 11:23: daily. [place] [address] Medical Branch MULTIVIT Yes Take by Univer s &MINERALS/F 6-07 mouth. ity of ERROUS FUM 11:23: [place] (MULTI 09 Medical VITAMIN Branch ORAL) METHYLCELLU 0 Yes Univer s LOSE (FIBER 6-07 ity of THERAPY 11:23: [facility]) 09 Medical Branch DOCUSATE Yes Take by [facility] SODIUM 6-07 mouth. ity of (COLACE 11:23: [place] ORAL) 09 Medical Branch vitamin C Yes 1000mg Take 1,000 Univers with derrell 6-07 mg by ity of hips 11:23: mouth [place] (VITAMIN C) 09 daily. Medica l 1,000 mg Branch tablet cholecalcif Yes 1000U Take 1,000 Univers edmar, 6-07 Units by ity of vitamin D3, 11:23: mouth [place] (VITAMIN 09 daily. Medical D3) 1,000 Branch unit tablet CRANBERRY 0 Yes Take by [facility] FRUIT 6-07 mouth ity of EXTRACT 11:23: daily. [place] ([place] Medical ORAL) Branch CALCIUM Yes Take by Univers ORAL 6-07 mouth ity of 11:23: daily. [place] Medical Branch DOCOSAHEXAN Yes 1000mg Take 1,000 Univers OIC 6-07 mg by ity of ACID/EPA 11:23: mouth [place] (FISH OIL 09 daily. Medical ORAL) Branch BIOTIN ORAL Yes Take by Uni vers 6-07 mouth. ity of 11:23: Medical Branch FOLIC ACID Yes Take by Univ ers ORAL 6-07 mouth ity of 11:23: daily. [place] Medical Branch MULTIVIT Yes Take by [facility] &MINERALS/F 6-07 mouth. ity of ERROUS FUM 11:23: [place] (MULTI 09 Medical VITAMIN Branch ORAL) METHYLCELLU Yes Univer s LOSE (FIBER 6-07 ity of THERAPY 11:23: [place] MISC) 09 Medical Branch DOCUSATE Yes Take by Univer s SODIUM 6-07 mouth. ity of (COLACE 11:23: [place] ORAL) 09 Medical Branch vitamin C Yes 1000mg Take 1,000 Univers with derrell 6-07 mg by ity of hips 11:23: mouth [place] (VITAMIN C) 09 daily. Medica l 1,000 mg Branch tablet cholecalcif Yes 1000U Take 1,000 Univers edmar, 6-07 Units by ity of vitamin D3, 11:23: mouth [place] (VITAMIN 09 daily. Medical D3) 1,000 Branch unit tablet CRANBERRY 0 Yes Take by [facility]ive rs FRUIT 6-07 mouth ity of EXTRACT 11:23: daily. [place] ([place] 09 Medical ORAL) Branch CALCIUM Yes Take by Univers ORAL 6-07 mouth ity of 11:23: daily. [place] Medical Branch DOCOSAHEXAN 2022-0 Yes 1000mg Take 1,000 Univers OIC 6-07 mg by ity of ACID/EPA 11:23: mouth [place] (FISH OIL 09 daily. Medical ORAL) Branch BIOTIN ORAL Yes Take by Uni vers 6-07 mouth. ity of 11:23: Medical Branch FOLIC ACID Yes Take by Univ ers ORAL 6-07 mouth ity of 11:23: daily. [place] Medical Branch MULTIVIT Yes Take by Univer s &MINERALS/F 6-07 mouth. ity of ERROUS FUM 11:23: [place] (MULTI 09 Medical VITAMIN Branch ORAL) METHYLCELLU Yes [facility] LOSE (FIBER 6-07 ity of THERAPY 11:23: [place] MISC) 09 Medical Branch DOCUSATE Yes Take by [facility] SODIUM 6-07 mouth. ity of (COLACE 11:23: [place] ORAL) 09 Medical Branch vitamin C Yes 1000mg Take 1,000 Univers with derrell 6-07 mg by ity of hips 11:23: mouth [place] (VITAMIN C) 09 daily. Medica l 1,000 mg Branch tablet cholecalcif Yes 1000U Take 1,000 Univers edmar, 6-07 Units by ity of vitamin D3, 11:23: mouth [place] (VITAMIN 09 daily. Medical D3) 1,000 Branch unit tablet CRANBERRY Yes Take by [facility] rs FRUIT 6-07 mouth ity of EXTRACT 11:23: daily. [place] ([place] Medical ORAL) Branch CALCIUM Yes Take by Univers ORAL 6-07 mouth ity of 11:23: daily. [place] Medical Branch DOCOSAHEXAN Yes 1000mg Take 1,000 Univers OIC 6-07 mg by ity of ACID/EPA 11:23: mouth [place] (FISH OIL 09 daily. Medical ORAL) Branch BIOTIN ORAL Yes Take by Uni vers 6-07 mouth. ity of 11:23: [place] Medical Branch FOLIC ACID 0 Yes Take by Univ ers ORAL 6-07 mouth ity of 11:23: daily. [place] [address] Medical Branch MULTIVIT Yes Take by Univer s &MINERALS/F 6-07 mouth. ity of ERROUS FUM 11:23: [place] (MULTI 09 Medical VITAMIN Branch ORAL) METHYLCELLU 0 Yes Univer s LOSE (FIBER 6-07 ity of THERAPY 11:23: [facility]) 09 Medical Branch DOCUSATE Yes Take by [facility] SODIUM 6-07 mouth. ity of (COLACE [...] Branch unit tablet CRANBERRY Yes Take by [facility] rs FRUIT 6-07 mouth ity of EXTRACT 11:23: daily. [place] ([place] 09 Medical ORAL) Branch CALCIUM Yes Take by Univers ORAL 6-07 mouth ity of 11:23: daily. [place] Medical Branch DOCOSAHEXAN Yes 1000mg Take 1,000 Univers OIC 6-07 mg by ity of ACID/EPA 11:23: mouth [place] (FISH OIL 09 daily. Medical ORAL) Branch BIOTIN ORAL Yes Take by Uni vers 6-07 mouth. ity of 11:23: [place] [address] Medical Branch FOLIC ACID Yes Take by Univ ers ORAL 6-07 mouth ity of 11:23: daily. [place] Medical Branch MULTIVIT Yes Take by [facility] &MINERALS/F 6-07 mouth. ity of ERROUS FUM 11:23: [place] (MULTI 09 Medical VITAMIN Branch ORAL) METHYLCELLU 0 Yes Univer s LOSE (FIBER 6-07 ity of THERAPY 11:23: [facility]) 09 Medical Branch DOCUSATE Yes Take by [facility] SODIUM 6-07 mouth. ity of (COLACE 11:23: [place] ORAL) 09 Medical Branch vitamin C Yes [...] 6-07 mouth ity of EXTRACT 11:23: daily. [place] ([place] Medical ORAL) Branch CALCIUM Yes Take by Univers ORAL 6-07 mouth ity of 11:23: daily. [place] Medical Branch DOCOSAHEXAN Yes 1000mg Take 1,000 Univers OIC 6-07 mg by ity of ACID/EPA 11:23: mouth [place] (FISH OIL 09 daily. Medical ORAL) Branch BIOTIN ORAL Yes Take by Uni vers 6-07 mouth. ity of 11:23: [place] [address] Medical Branch FOLIC ACID Yes Take by Univ ers ORAL 6-07 mouth ity of 11:23: daily. [place] Medical Branch MULTIVIT Yes Take by Univer s &MINERALS/F 6-07 mouth. ity of ERROUS FUM 11:23: [place] (MULTI 09 Medical VITAMIN Branch ORAL) METHYLCELLU Yes Univer s LOSE (FIBER 6-07 ity of THERAPY 11:23: [place] MISC) Medical Branch DOCUSATE Yes Take by Univer s SODIUM 6-07 mouth. ity of (COLACE 11:23: [place] ORAL) Medical Branch vitamin C Yes 1000mg Take 1,000 Univers with derrell 6-07 mg by ity of hips 11:23: mouth [place] (VITAMIN C) 09 daily. Medica l 1,000 mg Branch tablet cholecalcif Yes 1000U Take 1,000 Univers edmar, 6-07 Units by ity of vitamin D3, 11:23: mouth [place] (VITAMIN 09 daily. Medical D3) 1,000 Branch unit tablet CRANBERRY Yes [facility] FRUIT 6-07 mouth ity of EXTRACT 11:23: daily. [place] ([place] Medical ORAL) Branch CALCIUM Yes Take by Univers ORAL 6-07 mouth ity of 11:23: daily. [place] Medical Branch DOCOSAHEXAN Yes 1000mg Take 1,000 Univers OIC 6-07 mg by ity of ACID/EPA 11:23: mouth [place] (FISH OIL 09 daily. Medical ORAL) Branch BIOTIN ORAL Yes Take by Uni vers 6-07 mouth. ity of 11:23: Medical Branch FOLIC ACID Yes Take by Univ ers ORAL 6-07 mouth ity of 11:23: daily. [place] Medical Branch MULTIVIT Yes Take by Univer s &MINERALS/F 6-07 mouth. ity of ERROUS FUM 11:23: [place] (MULTI 09 Medical VITAMIN Branch ORAL) METHYLCELLU 0 Yes Univer s LOSE (FIBER 6-07 ity of THERAPY 11:23: [facility]) 09 Medical Branch DOCUSATE Yes Take by Univer s SODIUM 6-07 mouth. ity of (COLACE 11:23: [place] ORAL) 09 Medical Branch vitamin C Yes 1000mg Take 1,000 Univers with derrell 6-07 mg by ity of hips 11:23: mouth [place] (VITAMIN C) 09 daily. Medica l 1,000 mg Branch tablet cholecalcif Yes 1000U Take 1,000 Univers edmar, 6-07 Units by ity of vitamin D3, 11:23: mouth [place] (VITAMIN 09 daily. Medical D3) 1,000 Branch unit tablet CRANBERRY Yes Take by [facility]ive rs FRUIT 6-07 mouth ity of EXTRACT 11:23: daily. [place] ([place] Medical ORAL) Branch CALCIUM Yes Take by Univers ORAL 6-07 mouth ity of 11:23: daily. [place] Medical Branch DOCOSAHEXAN Yes 1000mg Take 1,000 Univers OIC 6-07 mg by ity of ACID/EPA 11:23: mouth [place] (FISH OIL 09 daily. Medical ORAL) Branch BIOTIN ORAL Yes Take by Uni vers 6-07 mouth. ity of 11:23: Medical Branch FOLIC ACID Yes Take by Univ ers ORAL 6-07 mouth ity of 11:23: daily. [place] Medical Branch MULTIVIT 0 Yes Take by Univer s &MINERALS/F 6-07 mouth. ity of ERROUS FUM 11:23: [place] (MULTI 09 Medical VITAMIN Branch ORAL) METHYLCELLU 0 Yes Univer s LOSE (FIBER 6-07 ity of THERAPY 11:23: [facility]) 09 Medical Branch DOCUSATE Yes Take by [facility] s SODIUM 6-07 mouth. ity of (COLACE [...] Branch unit tablet CRANBERRY Yes Take by [facility] rs FRUIT 6-07 mouth ity of EXTRACT 11:23: daily. [place] ([place] Medical ORAL) Branch CALCIUM Yes Take by [facility] ORAL 6-07 mouth ity of 11:23: daily. [place] Medical Branch DOCOSAHEXAN Yes 1000mg Take 1,000 Univers OIC 6-07 mg by ity of ACID/EPA 11:23: mouth [place] (FISH OIL 09 daily. Medical ORAL) Branch BIOTIN ORAL Yes Take by Uni vers 6-07 mouth. ity of 11:23: [place] [address] Medical Branch FOLIC ACID Yes Take by [facility] ers ORAL 6-07 mouth ity of 11:23: daily. [place] Medical Branch MULTIVIT Yes Take by [facility] s &MINERALS/F 6-07 mouth. ity of ERROUS FUM 11:23: [place] (MULTI 09 Medical VITAMIN Branch ORAL) METHYLCELLU Yes [facility] s LOSE (FIBER 6-07 ity of THERAPY 11:23: [place] MISC) 09 Medical Branch DOCUSATE Yes Take by [facility] s SODIUM 6-07 mouth. ity of (COLACE [...] 6-07 mouth ity of EXTRACT 11:23: daily. [place] ([place] Medical ORAL) Branch CALCIUM Yes Take by Univers ORAL 6-07 mouth ity of 11:23: daily. [place] Medical Branch DOCOSAHEXAN Yes 1000mg Take 1,000 Univers OIC 6-07 mg by ity of ACID/EPA 11:23: mouth [place] (FISH OIL 09 daily. Medical ORAL) Branch BIOTIN ORAL Yes Take by Uni vers 6-07 mouth. ity of 11:23: [place] Medical Branch FOLIC ACID Yes Take by Univ ers ORAL 6-07 mouth ity of 11:23: daily. [place] Medical Branch MULTIVIT Yes Take by Univer s &MINERALS/F 6-07 mouth. ity of ERROUS FUM 11:23: [place] (MULTI 09 Medical VITAMIN Branch ORAL) METHYLCELLU Yes Univer s LOSE (FIBER 6-07 ity of THERAPY 11:23: [place] MISC) Medical Branch DOCUSATE Yes Take by Univer s SODIUM 6-07 mouth. ity of (COLACE 11:23: [place] ORAL) Medical Branch vitamin C Yes 1000mg Take 1,000 [facility] with derrell 6-07 mg by ity of hips 11:23: mouth [place] (VITAMIN C) 09 daily. Medica l 1,000 mg Branch tablet cholecalcif Yes 1000U Take 1,000 [facility] edmar, 6-07 Units by ity of vitamin D3, 11:23: mouth [place] (VITAMIN 09 daily. Medical D3) 1,000 Branch unit tablet CRANBERRY Yes [facility] FR[facility]-07 mouth ity of EXTRACT 11:23: daily. [place] ([place]Y Medical ORAL) Branch CALCIUM Yes Take by Univers ORAL 6-07 mouth ity of 11:23: daily. [place] Medical Branch DOCOSAHEXAN Yes 1000mg Take 1,000 [facility] OIC 6-07 mg by ity of ACID/EPA 11:23: mouth [place] (FISH OIL 09 daily. Medical ORAL) Branch BIOTIN ORAL Yes Take by Uni vers 6-07 mouth. ity of 11:23: [place] [address] Medical Branch FOLIC ACID Yes Take by [facility] ers ORAL 6-07 mouth ity of 11:23: daily. [place] [address] Medical Branch MULTIVIT Yes Take by Univer s &MINERALS/F 6-07 mouth. ity of ERROUS FUM 11:23: [place] (MULTI 09 Medical VITAMIN Branch ORAL) METHYLCELLU Yes Univer s LOSE (FIBER 6-07 ity of THERAPY 11:23: [facility]) 09 Medical Branch [facility]ATE [facility] mouth. ity of (COLACE 11:23: [place] ORAL) 09 Medical Branch vitamin C Yes 1000mg Take 1,000 [facility] with derrell 6-07 mg by ity of hips 11:23: mouth [place] (VITAMIN C) 09 daily. Medica l 1,000 mg Branch tablet cholecalcif Yes 1000U Take 1,000 [facility] edmar, 6-07 Units by ity of vitamin D3, 11:23: mouth [place] (VITAMIN 09 daily. Medical D3) 1,000 Branch unit tablet CRANBERRY Yes Take by [facility] rs FRUIT 6-07 mouth ity of EXTRACT 11:23: daily. [place] (CRANBERRY 09 Medical ORAL) Branch CALCIUM Yes Take by [facility] ORAL 6-07 mouth ity of 11:23: daily. [place] [facility] DOCOSAHEXAN Yes 1000mg Take 1,000 [facility] OIC 6-07 mg by ity of ACID/EPA 11:23: mouth [place] (FISH OIL 09 daily. Medical ORAL) Branch BIOTIN ORAL Yes Take by Uni vers 6-07 mouth. ity of 11:23: [place] [address] Medical Branch FOLIC ACID Yes Take by [facility] ers ORAL 6-07 mouth ity of 11:23: daily. [place] [address] Medical Branch MULTIVIT Yes [facility] &MINERALS/F 6-07 mouth. ity of ERROUS FUM 11:23: [place] (MULTI 09 Medical VITAMIN Branch ORAL) METHYLCELLU Yes Univer s LOSE (FIBER 6-07 ity of THERAPY 11:23: [place] MIS) 09 Medical Branch DOCUSATE Yes Take by [facility] s SODIUM 6-07 mouth. ity of (COLACE [...] 6-07 mouth ity of EXTRACT 11:23: daily. [place] (CRANBERRY 09 Medical ORAL) Branch CALCIUM Yes Take by Univers ORAL 6-07 mouth ity of 11:23: daily. [place] Medical Branch DOCOSAHEXAN Yes 1000mg Take 1,000 [facility] OIC 6-07 mg by ity of ACID/EPA 11:23: mouth [place] (FISH OIL 09 daily. Medical ORAL) Branch BIOTIN ORAL Yes Take by Uni vers 6-07 mouth. ity of 11:23: Medical Branch FOLIC ACID Yes Take by Univ ers ORAL 6-07 mouth ity of 11:23: daily. [place] [facility] MULTIVIT Yes Take by Univer s &MINERALS/F 6-07 mouth. ity of ERROUS FUM 11:23: [place] (MULTI 09 Medical VITAMIN Branch ORAL) METHYLCELLU Yes Univer s LOSE (FIBER 6-07 ity of THERAPY 11:23: [place] MISC) 09 Medical Branch DOCUSATE Yes Take [...] 6-07 mouth ity of EXTRACT 11:23: daily. [place] (CRANBERRY 09 Medical ORAL) Branch CALCIUM Yes [...] ORAL 6-07 mouth ity of 11:23: daily. [place] Medical Branch MULTIVIT Yes Take by Univer s &MINERALS/F 6-07 mouth. ity of ERROUS FUM 11:23: [place] (MULTI 09 Medical VITAMIN Branch ORAL) [facility]LLU Yes [facility]IB[facility] 6-07 ity of THERAPY 11:23: [place] MISC) 09 Medical Branch DOCUSATE Yes Take [facility] SODIUM 6-07 mouth. ity of (COLACE 11:23: [place] ORAL) 09 Medical Branch vitamin C Yes 1000mg Take 1,000 [facility] with derrlel 6-07 mg by ity of hips 11:23: mouth [place] (VITAMIN C) 09 daily. Medica l 1,000 mg Branch tablet cholecalcif Yes 1000U Take 1,000 [facility] edmar, 6-07 Units by ity of vitamin D3, 11:23: mouth [place] (VITAMIN 09 daily. Medical D3) 1,000 Branch unit tablet CRANBERRY Yes Take by [facility] rs FRUIT 6-07 mouth ity of EXTRACT 11:23: daily. [place] (CRANBERRY Medical ORAL) Branch CALCIUM Yes Take by Univers ORAL 6-07 mouth ity of 11:23: daily. [place] [facility] Branch DOCOSAHEXAN Yes 1000mg Take 1,000 [...] 6-07 mouth. ity of ERROUS FUM 11:23: [place] (MULTI 09 Medical VITAMIN Branch ORAL) METHYLCELLU Yes [facility]FIBER 6-07 ity of THERAPY 11:23: [facility]) Medical Branch DOCUSATE Yes Take by [facility] SODIUM 6-07 mouth. ity of (COLACE 11:23: [place] ORAL) 09 Medical Branch vitamin C Yes 1000mg Take 1,000 [facility] with derrell 6-07 mg by ity of hips 11:23: mouth [place] (VITAMIN C) 09 daily. Medica l 1,000 mg Branch tablet cholecalcif Yes 1000U Take 1,000 [facility] edmar, 6-07 Units by ity of vitamin D3, 11:23: mouth [place] (VITAMIN 09 daily. Medical D3) 1,000 Branch unit tablet CRANBERRY Yes Take by [facility] rs FRUIT 6-07 mouth ity of EXTRACT 11:23: daily. [place] (CRANBERRY 09 Medical ORAL) Branch CALCIUM Yes Take by Univers ORAL 6-07 mouth ity of 11:23: daily. [place] [address] Medical Branch DOCOSAHEXAN Yes 1000mg Take 1,000 [facility] OIC 6-07 mg by ity of ACID/EPA 11:23: mouth [place] (FISH OIL 09 daily. Medical ORAL) Branch BIOTIN ORAL Yes Take by Uni vers 6-07 mouth. ity of 11:23: [place] [address] Medical Branch FOLIC ACID Yes Take by [facility] ers ORAL 6-07 mouth ity of 11:23: daily. [place] [address] Medical Branch MULTIVIT Yes Take by [facility] &MINERALS/F 6-07 mouth. ity of ERROUS FUM 11:23: [place] (MULTI 09 Medical VITAMIN Branch ORAL) METHYLCELLU 0 Yes [facility] LO[facility] (FIBER 6-07 ity of THERAPY 11:23: [facility]) Medical Branch DOCUSATE 0 Yes Take by [facility] SODIUM 6-07 mouth. ity of (COLACE [...] unit tablet CRANBERRY 2021-0 Yes Take by [facility] FRUIT 6-07 mouth ity of EXTRACT 11:23: daily. [place] (CRANBERRY Medical ORAL) Branch CALCIUM 0 Yes Take by Univers ORAL 6-07 mouth ity of 11:23: daily. [place] Medical Branch DOCOSAHEXAN Yes 1000mg Take 1,000 [facility] OIC 6-07 mg by ity of ACID/EPA 11:23: mouth [place] (FISH OIL 09 daily. Medical ORAL) Branch BIOTIN ORAL Yes Take by Uni vers 6-07 mouth. ity of 11:23: [place] Medical Branch FOLIC ACID Yes Take by Univ ers ORAL 6-07 mouth ity of 11:23: daily. [place] Medical Branch MULTIVIT Yes Take by [facility] s &MINERALS/F 6-07 mouth. ity of ERROUS FUM 11:23: [place] (MULTI 09 Medical VITAMIN Branch ORAL) METHYLCELLU [address] [facility] s LOSE (FIBER 6-07 ity of THERAPY 11:23: [place] MISC) 09 Medical Branch DOCUSATE Yes Take by [facility] SODIUM 6-07 mouth. ity of (COLACE 11:23: [place] ORAL) 09 Medical Branch vitamin C Yes 1000mg Take 1,000 [facility] with derrell 6-07 mg by ity of hips 11:23: mouth [place] (VITAMIN C) 09 daily. Medica l 1,000 mg Branch tablet cholecalcif 2021-0 Yes 1000U Take 1,000 [facility] edmar, 6-07 Units by ity of vitamin D3, 11:23: mouth [place] (VITAMIN 09 daily. Medical D3) 1,000 Branch unit tablet CRANBERRY 2021-0 Yes Take by Unive rs FRUIT 6-07 mouth ity of EXTRACT 11:23: daily. [place] (CRANBERRY Medical ORAL) Branch CALCIUM 0 Yes Take by [facility] ORAL 6-07 mouth ity of 11:23: daily. [place] Medical Branch DOCOSAHEXAN 2022-0 Yes 1000mg Take 1,000 [facility] OIC 6-07 mg by ity of ACID/EPA 11:23: mouth [place] (FISH OIL 09 daily. Medical ORAL) Branch BIOTIN ORAL Yes Take by Uni vers 6-07 mouth. ity of 11:23: Medical Branch FOLIC ACID Yes Take by Univ ers ORAL 6-07 mouth ity of 11:23: daily. [place] Medical Branch MULTIVIT Yes Take by Univer s &MINERALS/F 6-07 mouth. ity of ERROUS FUM 11:23: [place] (MULTI 09 Medical VITAMIN Branch ORAL) METHYLCELLU Yes [facility] (FIBER 6-07 ity of THERAPY 11:23: [place] MISC) 09 Medical Branch DOCUSATE Yes Take by [facility] SODIUM 6-07 mouth. ity of (COLACE 11:23: [place] ORAL) 09 Medical Branch vitamin C Yes 1000mg Take 1,000 [facility] with derrell 6-07 mg by ity of hips 11:23: mouth [place] (VITAMIN C) 09 daily. Medica l 1,000 mg Branch tablet cholecalcif Yes 1000U Take 1,000 [facility] edmar, 6-07 Units by ity of vitamin D3, 11:23: mouth [place] (VITAMIN 09 daily. Medical D3) 1,000 Branch unit tablet CRANBERRY Yes Take by Unive rs FRUIT 6-07 mouth ity of EXTRACT 11:23: daily. [place] (CRANBERRY Medical ORAL) Branch CALCIUM Yes Take by Univers ORAL 6-07 mouth ity of 11:23: daily. [place] Medical Branch DOCOSAHEXAN Yes 1000mg Take 1,000 [facility] OIC 6-07 mg by ity of ACID/EPA 11:23: mouth [place] (FISH OIL 09 daily. Medical ORAL) Branch BIOTIN ORAL Yes Take by Uni vers 6-07 mouth. ity of 11:23: Medical Branch FOLIC ACID Yes Take by Univ ers ORAL 6-07 mouth ity of 11:23: daily. [place] Medical Branch MULTIVIT Yes Take by Univer s &MINERALS/F 6-07 mouth. ity of ERROUS FUM 11:23: [place] (MULTI 09 Medical VITAMIN Branch ORAL) METHYLCELLU Yes [facility] (FIBER 6-07 ity of THERAPY 11:23: [facility]) 09 Medical Branch DOCUSATE Yes Take by [facility] SODIUM 6-07 mouth. ity of (COLACE [...] Branch unit tablet CRANBERRY Yes Take [facility] FRUIT 6-07 mouth ity of EXTRACT 11:23: daily. [place] (CRANBERRY 09 Medical ORAL) Branch CALCIUM Yes Take by [facility] ORAL 6-07 mouth ity of 11:23: daily. [place] Medical Branch DOCOSAHEXAN Yes 1000mg Take 1,000 [facility] OIC 6-07 mg by ity of ACID/EPA 11:23: mouth [place] (FISH OIL 09 daily. Medical ORAL) Branch BIOTIN ORAL Yes Take by Uni vers 6-07 mouth. ity of 11:23: [place] [address] Medical Branch FOLIC ACID Yes Take by Univ ers ORAL 6-07 mouth ity of 11:23: daily. [place] [address] Medical Branch MULTIVIT Yes Take by [facility] s &MINERALS/F 6-07 mouth. ity of ERROUS FUM 11:23: [place] (MULTI 09 Medical VITAMIN Branch ORAL) METHYLCELLU Yes Univer s LOSE (FIBER 6-07 ity of THERAPY 11:23: [facility]) 09 Medical Branch DOCUSATE 0 Yes Take [facility] SODIUM 6-07 mouth. ity of (COLACE [...] CRANBERRY Yes Take by [facility] FRUIT 6-07 mouth ity of EXTRACT 11:23: daily. [place] (CRANBERRY Medical ORAL) Branch CALCIUM Yes Take by Univers ORAL 6-07 mouth ity of 11:23: daily. [place] Medical Branch DOCOSAHEXAN Yes 1000mg Take 1,000 [facility] OIC 6-07 mg by ity of ACID/EPA 11:23: mouth [place] (FISH OIL 09 daily. Medical ORAL) Branch BIOTIN ORAL Yes Take by Uni vers 6-07 mouth. ity of 11:23: Medical Branch FOLIC ACID Yes Take by Univ ers ORAL 6-07 mouth ity of 11:23: daily. [place] Medical Branch MULTIVIT Yes Take by Univer s &MINERALS/F 6-07 mouth. ity of ERROUS FUM 11:23: [place] (MULTI 09 Medical VITAMIN Branch ORAL) METHYLCELLU Yes Univer s LOSE (FIBER 6-07 ity of THERAPY 11:23: [place] MISC) 09 Medical Branch DOCUSATE Yes Take by Univer s SODIUM 6-07 mouth. ity of (COLACE 11:23: [place] ORAL) 09 Medical Branch vitamin C Yes 1000mg Take 1,000 [facility] with derrell 6-07 mg by ity of hips 11:23: mouth [place] (VITAMIN C) 09 daily. Medica l 1,000 mg Branch tablet cholecalcif Yes 1000U Take 1,000 [facility] edmar, 6-07 Units by ity of vitamin D3, 11:23: mouth [place] (VITAMIN 09 daily. Medical D3) 1,000 Branch unit tablet CRANBERRY Yes [facility] FRUIT 6-07 mouth ity of EXTRACT 11:23: daily. [place] (CRANBERRY Medical ORAL) Branch CALCIUM Yes Take by Univers ORAL 6-07 mouth ity of 11:23: daily. [place] Medical Branch DOCOSAHEXAN Yes 1000mg Take 1,000 [...] 6-07 mouth. ity of ERROUS FUM 11:23: [place] (MULTI 09 Medical VITAMIN Branch ORAL) METHYLCELLU 0 Yes Univer s LOSE (FIBER 6-07 ity of THERAPY 11:23: [facility]) 09 Medical Branch DOCUSATE Yes Take by Univer s SODIUM 6-07 mouth. ity of (COLACE 11:23: [place] ORAL) 09 Medical Branch vitamin C Yes 1000mg Take 1,000 [facility] with derrell 6-07 mg by ity of hips 11:23: mouth [place] (VITAMIN C) 09 daily. Medica l 1,000 mg Branch tablet cholecalcif Yes 1000U Take 1,000 [facility] edmar, 6-07 Units by ity of vitamin D3, 11:23: mouth [place] (VITAMIN 09 daily. Medical D3) 1,000 Branch unit tablet CRANBERRY Yes Take by Unive rs FRUIT 6-07 mouth ity of EXTRACT 11:23: daily. [place] (CRANBERRY Medical ORAL) Branch CALCIUM Yes Take by Univers ORAL 6-07 mouth ity of 11:23: daily. Medical Branch DOCOSAHEXAN Yes 1000mg Take 1,000 [facility] OIC 6-07 mg by ity of ACID/EPA 11:23: mouth [place] (FISH OIL 09 daily. Medical ORAL) Branch BIOTIN ORAL Yes Take by Uni vers 6-07 mouth. ity of 11:23: Medical Branch FOLIC ACID 0 Yes Take by Univ ers ORAL 6-07 mouth ity of 11:23: daily. [place] Medical Branch MULTIVIT 0 Yes Take by Univer s &MINERALS/F 6-07 mouth. ity of ERROUS FUM 11:23: [place] (MULTI 09 Medical VITAMIN Branch ORAL) METHYLCELLU 0 Yes Univer s LOSE (FIBER 6-07 ity of THERAPY 11:23: [facility]) 09 Medical Branch DOCUSATE Yes Take [...] 6-07 mouth ity of EXTRACT 11:23: daily. [place] (CRANBERRY 09 Medical ORAL) Branch CALCIUM Yes Take by Univers ORAL 6-07 mouth ity of 11:23: daily. [place] Medical Branch DOCOSAHEXAN Yes 1000mg Take 1,000 [facility] OIC 6-07 mg by ity of ACID/EPA 11:23: mouth [place] (FISH OIL 09 daily. Medical ORAL) Branch BIOTIN ORAL Yes Take by Uni vers 6-07 mouth. ity of 11:23: [place] [address] Medical Branch FOLIC ACID Yes Take by Univ ers ORAL 6-07 mouth ity of 11:23: daily. [place] [address] Medical Branch MULTIVIT Yes Take by Univer s &MINERALS/F 6-07 mouth. ity of ERROUS FUM 11:23: [place] (MULTI 09 Medical VITAMIN Branch ORAL) METHYLCELLU Yes Univer s LOSE (FIBER 6-07 ity of THERAPY 11:23: [facility]) 09 Medical Branch DOCUSATE Yes Take by Unive rs SODIUM 6-07 mouth. ity of (COLACE 11:23: [place] ORAL) 09 Medical Branch vitamin C Yes 1000mg Take 1,000 [facility] with derrell 6-07 mg by ity of hips 11:23: mouth [place] (VITAMIN C) 09 daily. Medica l 1,000 mg Branch tablet cholecalcif Yes 1000U Take 1,000 [facility] edmar, 6-07 Units by ity of vitamin D3, 11:23: mouth [place] (VITAMIN 09 daily. Medical D3) 1,000 Branch unit tablet CRANBERRY Yes [facility] FRUIT 6-07 mouth ity of EXTRACT 11:23: daily. [place] (CRANBERRY Medical ORAL) Branch CALCIUM Yes Take by Univers ORAL 6-07 mouth ity of 11:23: daily. [place] Medical Branch DOCOSAHEXAN Yes 1000mg Take 1,000 [facility] OIC 6-07 mg by ity of ACID/EPA 11:23: mouth [place] (FISH OIL 09 daily. Medical ORAL) Branch BIOTIN ORAL Yes Take by Uni vers 6-07 mouth. ity of 11:23: [place] Medical Branch FOLIC ACID Yes Take by [facility] ers ORAL 6-07 mouth ity of 11:23: daily. [place] [facility] Branch MULTIVIT Yes Take by [facility] s &MINERALS/F 6-07 mouth. ity of ERROUS FUM 11:23: [place] (MULTI 09 Medical VITAMIN Branch ORAL) METHYLCELLU Yes [facility] s LOSE (FIBER 6-07 ity of THERAPY 11:23: [place] MISC) Medical Branch DOCUSATE Yes Take [facility] SODIUM 6-07 mouth. ity of (COLACE 11:23: [place] ORAL) Medical Branch vitamin C Yes 1000mg Take 1,000 [facility] with derrell 6-07 mg by ity of hips 11:23: mouth [place] (VITAMIN C) 09 daily. Medica l 1,000 mg Branch tablet cholecalcif Yes 1000U Take 1,000 [facility] edmar, 6-07 Units by ity of vitamin D3, 11:23: mouth [place] (VITAMIN 09 daily. Medical D3) 1,000 Branch unit tablet CRANBERRY Yes Take by [facility] ers FRUIT 6-07 mouth ity of EXTRACT 11:23: daily. [place] (CRANBERRY Medical ORAL) Branch CALCIUM Yes Take by Univers ORAL 6-07 mouth ity of 11:23: daily. [place] Medical Branch DOCOSAHEXAN Yes 1000mg Take 1,000 [facility] OIC 6-07 mg by ity of ACID/EPA 11:23: mouth [place] (FISH OIL 09 daily. Medical ORAL) Branch BIOTIN ORAL Yes Take by Uni vers 6-07 mouth. ity of 11:23: [place] [address] Medical Branch FOLIC ACID Yes Take by [facility] ers ORAL 6-07 mouth ity of 11:23: daily. [place] [address] Medical Branch MULTIVIT Yes Take by [facility] &MINERALS/F 6-07 mouth. ity of ERROUS FUM 11:23: [place] ([place] [address] Medical VITAMIN Branch ORAL) METHYLCELLU Yes Univer s LOSE (FIBER 6-07 ity of THERAPY 11:23: [facility]) 09 Medical Branch DOCUSATE Yes Take [facility] SODIUM 6-07 mouth. ity of (COLACE 11:23: [place] ORAL) 09 Medical Branch vitamin C Yes 1000mg Take 1,000 [facility] with derrell 6-07 mg by ity of hips 11:23: mouth [place] (VITAMIN C) 09 daily. Medica l 1,000 mg Branch tablet cholecalcif Yes 1000U Take 1,000 [facility] edmar, 6-07 Units by ity of vitamin D3, 11:23: mouth [place] (VITAMIN 09 daily. Medical D3) 1,000 Branch unit tablet CRANBERRY Yes Take by [facility] rs FRUIT 6-07 mouth ity of EXTRACT 11:23: daily. [place] (CRANBERRY 09 Medical ORAL) Branch CALCIUM Yes Take by Univers ORAL 6-07 mouth ity of 11:23: daily. [place] [address] Medical Branch DOCOSAHEXAN Yes 1000mg Take 1,000 [facility] OIC 6-07 mg by ity of ACID/EPA 11:23: mouth [place] (FISH OIL 09 daily. Medical ORAL) Branch BIOTIN ORAL Yes Take by Uni vers 6-07 mouth. ity of 11:23: [place] [address] Medical Branch FOLIC ACID Yes Take by [facility] ers ORAL 6-07 mouth ity of 11:23: daily. [place] [address] Medical Branch MULTIVIT Yes Take by [facility] &MINERALS/F 6-07 mouth. ity of ERROUS FUM 11:23: [place] ([place] [address] Medical VITAMIN Branch ORAL) METHYLCELLU Yes Univer s LOSE (FIBER 6-07 ity of THERAPY 11:23: [facility]) 09 Medical Branch DOCUSATE Yes Take by [facility] s SODIUM 6-07 mouth. ity of (COLACE [...] Branch unit tablet CRANBERRY Yes Take by [facility] rs FRUIT 6- mouth ity of EXTRACT 11:23: daily. [place] (CRANBERRY 09 Medical ORAL) Branch CALCIUM Yes Take by Univers ORAL 6 mouth ity of 11:23: daily. [place] Medical Branch DOCOSAHEXAN Yes 1000mg Take 1,000 [facility] OIC 6-07 mg by ity of ACID/EPA 11:23: mouth [place] (FISH OIL 09 daily. Medical ORAL) Branch BIOTIN ORAL Yes Take by Uni vers 6- mouth. ity of 11:23: [place] 09 Medical Branch FOLIC ACID Yes Take by [facility] ers ORAL 6 mouth ity of 11:58: daily. [place] [address] Medical Branch MULTIVIT Yes Take by [facility] s &MINERALS/F 6-01 mouth. ity of ERROUS FUM 11:58: [place] (MULTI 16 Medical VITAMIN Branch ORAL) METHYLCELLU Yes Univer s LOSE (FIBER 6-01 ity of THERAPY 11:58: [place] MIS) 16 Medical Branch DOCUSATE Yes Take by [facility] s SODIUM 6-01 mouth. ity of (COLACE 11:58: [place] ORAL) 16 Medical Branch vitamin C Yes 1000mg Take 1,000 [facility] with derrell 6-01 mg by ity of hips 11:58: mouth [place] (VITAMIN C) 16 daily. Medica l 1,000 mg Branch tablet cholecalcif Yes 1000U Take 1,000 [facility] edmar, 6-01 Units by ity of vitamin D3, 11:58: mouth [place] (VITAMIN 16 daily. Medical D3) 1,000 Branch unit tablet CRANBERRY Yes Take by [facility] rs FRUIT 6- mouth ity of EXTRACT 11:58: daily. [place] (CRANBERRY 16 Medical ORAL) Branch CALCIUM 2022-0 Yes Take by Univers ORAL 6-01 mouth ity of 11:58: daily. [address] DOCOSAHEXAN 0 Yes 1000mg Take 1,000 [facility] OIC 6-01 mg by ity of ACID/EPA 11:58: mouth [place] (FISH OIL 16 daily. Medical ORAL) Branch BIOTIN ORAL 0 Yes Take by Uni vers 6-01 mouth. ity of 11:58: [place] 16 [facility] metformin Yes [id number] 500mg Take 1 U nivers ER 500 mg 5-31 tablet by ity o f 24 hr 00:00: mouth [place] tablet 00 daily with Medical breakfast. Branch STOP REGULAR METFORMIN. metformin Yes [id number] 500mg Take 1 U nivers ER 500 mg 5-31 tablet by ity o f 24 hr 00:00: mouth [place] tablet 00 daily with Medical breakfast. Branch STOP REGULAR METFORMIN. metformin Yes [id number] 500mg Take 1 U nivers ER 500 mg 5-31 tablet by ity o f 24 hr 00:00: mouth [place] tablet 00 daily with Medical breakfast. Branch STOP REGULAR METFORMIN. metformin Yes [id number] 500mg Take 1 U nivers ER 500 mg 5-31 tablet by ity o f 24 hr 00:00: mouth [place] tablet 00 daily with Medical breakfast. Branch STOP REGULAR METFORMIN. metformin Yes [id number] 500mg Take 1 U nivers ER 500 mg 5-31 tablet by ity o f 24 hr 00:00: mouth [place] tablet 00 daily with Medical breakfast. Branch STOP REGULAR METFORMIN. metformin Yes [id number] 500mg Take 1 U nivers ER 500 mg 5-31 tablet by ity o f 24 hr 00:00: mouth [place] tablet 00 daily with Medical breakfast. Branch STOP REGULAR METFORMIN. metformin Yes [id number] 500mg Take 1 U nivers ER 500 mg 5-31 tablet by ity o f 24 hr 00:00: mouth [place] tablet 00 daily with Medical breakfast. Branch STOP REGULAR METFORMIN. metformin Yes [id number] 500mg Take 1 U nivers ER 500 mg 5-31 tablet by ity o f 24 hr 00:00: mouth [place] tablet 00 daily with Medical breakfast. Branch STOP REGULAR METFORMIN. metformin 2022-0 Yes [id number] 500mg Take 1 U nivers ER 500 mg 5-31 tablet by ity o f 24 hr 00:00: mouth [place] tablet 00 daily with Medical breakfast. Branch STOP REGULAR METFORMIN. metformin 2021-0 Yes [id number] 500mg Take 1 U nivers ER 500 mg 5-31 tablet by ity o f 24 hr 00:00: mouth [place] tablet 00 daily with Medical breakfast. Branch STOP REGULAR METFORMIN. metformin 2021-0 Yes [id number] 500mg Take 1 U nivers ER 500 mg 5-31 tablet by ity o f 24 hr 00:00: mouth [place] tablet 00 daily with Medical breakfast. Branch STOP REGULAR METFORMIN. metformin 2021-0 Yes [id number] 500mg Take 1 U nivers ER 500 mg 5-31 tablet by ity o f 24 hr 00:00: mouth [place] tablet 00 daily with Medical breakfast. Branch STOP REGULAR METFORMIN. metformin 2021-0 Yes [id number] 500mg Take 1 U nivers ER 500 mg 5-31 tablet by ity o f 24 hr 00:00: mouth [place] tablet 00 daily with Medical breakfast. Branch STOP REGULAR METFORMIN. metformin 2021-0 Yes [id number] 500mg Take 1 U nivers ER 500 mg 5-31 tablet by ity o f 24 hr 00:00: mouth [place] tablet 00 daily with Medical breakfast. Branch STOP REGULAR METFORMIN. metformin 2021-0 Yes [id number] 500mg Take 1 U nivers ER 500 mg 5-31 tablet by ity o f 24 hr 00:00: mouth [place] tablet 00 daily with Medical breakfast. Branch STOP REGULAR METFORMIN. metformin 2021-0 Yes [id number] 500mg Take 1 U nivers ER 500 mg 5-31 tablet by ity o f 24 hr 00:00: mouth [place] tablet 00 daily with Medical breakfast. Branch STOP REGULAR METFORMIN. metformin 2021-0 Yes [id number] 500mg Take 1 U nivers ER 500 mg 5-31 tablet by ity o f 24 hr 00:00: mouth [place] tablet 00 daily with Medical breakfast. Branch STOP REGULAR METFORMIN. metformin 2021-0 Yes [id number] 500mg Take 1 U nivers ER 500 mg 5-31 tablet by ity o f 24 hr 00:00: mouth [place] tablet 00 daily with Medical breakfast. Branch STOP REGULAR METFORMIN. metformin 2021-0 Yes [id number] 500mg Take 1 U nivers ER 500 mg 5-31 tablet by ity o f 24 hr 00:00: mouth [place] tablet 00 daily with Medical breakfast. Branch STOP REGULAR METFORMIN. metformin 2021-0 Yes [id number] 500mg Take 1 U nivers ER 500 mg 5-31 tablet by ity o f 24 hr 00:00: mouth [place] tablet 00 daily with Medical breakfast. Branch STOP REGULAR METFORMIN. metformin 2021-0 Yes [id number] 500mg Take 1 U nivers ER 500 mg 5-31 tablet by ity o f 24 hr 00:00: mouth [place] tablet 00 daily with Medical breakfast. Branch STOP REGULAR METFORMIN. metformin 2021-0 Yes [id number] 500mg Take 1 U nivers ER 500 mg 5-31 tablet by ity o f 24 hr 00:00: mouth [place] tablet 00 daily with Medical breakfast. Branch STOP REGULAR METFORMIN. metformin 2021-0 Yes [id number] 500mg Take 1 U nivers ER 500 mg 5-31 tablet by ity o f 24 hr 00:00: mouth [place] tablet 00 daily with Medical breakfast. Branch STOP REGULAR METFORMIN. metformin 2021-0 Yes [id number] 500mg Take 1 U nivers ER 500 mg 5-31 tablet by ity o f 24 hr 00:00: mouth [place] tablet 00 daily with Medical breakfast. Branch STOP REGULAR METFORMIN. metformin 2021-0 Yes [id number] 500mg Take 1 U nivers ER 500 mg 5-31 tablet by ity o f 24 hr 00:00: mouth [place] tablet 00 daily with Medical breakfast. Branch STOP REGULAR METFORMIN. metformin 2021-0 Yes [id number] 500mg Take 1 U nivers ER 500 mg 5-31 tablet by ity o f 24 hr 00:00: mouth [place] tablet 00 daily with Medical breakfast. Branch STOP REGULAR METFORMIN. metformin 2021-0 Yes [id number] 500mg Take 1 U nivers ER 500 mg 5-31 tablet by ity o f 24 hr 00:00: mouth [place] tablet 00 daily with Medical breakfast. Branch STOP REGULAR METFORMIN. metformin 2021-0 Yes [id number] 500mg Take 1 U nivers ER 500 mg 5-31 tablet by ity o f 24 hr 00:00: mouth [place] tablet 00 daily with Medical breakfast. Branch STOP REGULAR METFORMIN. metformin 2021-0 Yes [id number] 500mg Take 1 U nivers ER 500 mg 5-31 tablet by ity o f 24 hr 00:00: mouth [place] tablet 00 daily with Medical breakfast. Branch STOP REGULAR METFORMIN. metformin 2021-0 Yes [id number] 500mg Take 1 U nivers ER 500 mg 5-31 tablet by [facility] f 24 hr 00:00: mouth [place] tablet 00 daily with Medical breakfast. Branch STOP REGULAR METFORMIN. metformin 2021-0 Yes [id number] 500mg Take 1 [facility] 500 mg 5-31 tablet by [facility] o f 24 hr 00:00: mouth [place] tablet 00 daily with Medical breakfast. Branch STOP REGULAR METFORMIN. metformin 2021-0 Yes [id number] 500mg Take 1 [facility] 500 mg 5-31 tablet by [facility] o f 24 hr 00:00: mouth [place] tablet 00 daily with Medical breakfast. Branch STOP REGULAR METFORMIN. metformin 2021-0 Yes [id number] 500mg Take 1 [facility] 500 mg 5-31 tablet by [facility] o f 24 hr 00:00: mouth [place] tablet 00 daily with Medical breakfast. Branch STOP REGULAR METFORMIN. metformin 2021-0 Yes [id number] 500mg Take 1 [facility] 500 mg 5-31 tablet by [facility] o f 24 hr 00:00: mouth [place] tablet 00 daily with Medical breakfast. Branch STOP REGULAR METFORMIN. metformin 2021-0 Yes [id number] 500mg Take 1 [facility] 500 mg 5-31 tablet by [facility] o f 24 hr 00:00: mouth [place] tablet 00 daily with Medical breakfast. Branch STOP REGULAR METFORMIN. metformin 2021-0 Yes [id number] 500mg Take 1 [facility] 500 mg 5-31 tablet by [facility] o f 24 hr 00:00: mouth [place] tablet 00 daily with Medical breakfast. Branch STOP REGULAR METFORMIN. metformin 2021-0 Yes [id number] 500mg Take 1 [facility] 500 mg 5-31 tablet by [facility] o f 24 hr 00:00: mouth [place] tablet 00 daily with Medical breakfast. Branch STOP REGULAR METFORMIN. metformin 2021-0 Yes [id number] 500mg Take 1 [facility] 500 mg 5-31 tablet by [facility] o f 24 hr 00:00: mouth [place] tablet 00 daily with Medical breakfast. Branch STOP REGULAR METFORMIN. metformin 2021-0 Yes [id number] 500mg Take 1 [facility] 500 mg 5-31 tablet by [facility] o f 24 hr 00:00: mouth [place] tablet 00 daily with Medical breakfast. Branch STOP REGULAR METFORMIN. metformin 2021-0 Yes [id number] 500mg Take 1 [facility] 500 mg 5-31 tablet by [facility] o f 24 hr 00:00: mouth [place] tablet 00 daily with Medical breakfast. Branch STOP REGULAR METFORMIN. metformin 2021-0 Yes [id number] 500mg Take 1 [facility] 500 mg 5-31 tablet by [facility] o f 24 hr 00:00: mouth [place] tablet 00 daily with Medical breakfast. Branch STOP REGULAR METFORMIN. metformin 2021-0 Yes [id number] 500mg Take 1 [facility] 500 mg 5-31 tablet by [facility] o f 24 hr 00:00: mouth [place] tablet 00 daily with Medical breakfast. Branch STOP REGULAR METFORMIN. metformin 2021-0 Yes [id number] 500mg Take 1 [facility] 500 mg 5-31 tablet by [facility] o f 24 hr 00:00: mouth [place] tablet 00 daily with Medical breakfast. Branch STOP REGULAR METFORMIN. metformin 2021-0 Yes [id number] 500mg Take 1 [facility] 500 mg 5-31 tablet by [facility] o f 24 hr 00:00: mouth [place] tablet 00 daily with Medical breakfast. Branch STOP REGULAR METFORMIN. metformin 2021-0 Yes [id number] 500mg Take 1 [facility] 500 mg 5-31 tablet by [facility] o f 24 hr 00:00: mouth [place] tablet 00 daily with Medical breakfast. Branch STOP REGULAR METFORMIN. metformin 2021-0 Yes [id number] 500mg Take 1 [facility] 500 mg 5-31 tablet by [facility] o f 24 hr 00:00: mouth [place] tablet 00 daily with Medical breakfast. Branch STOP REGULAR METFORMIN. metformin 2021-0 Yes [id number] 500mg Take 1 [facility] 500 mg 5-31 tablet by [facility] o f 24 hr 00:00: mouth [place] tablet 00 daily with Medical breakfast. Branch STOP REGULAR METFORMIN. metformin 2021-0 Yes [id number] 500mg Take 1 [facility] 500 mg 5-31 tablet by [facility] o f 24 hr 00:00: mouth [place] tablet 00 daily with Medical breakfast. Branch STOP REGULAR METFORMIN. metformin 2021-0 2022- No [id number] 500mg Take 1 [facility] 500 mg 5-31 10-13 tablet by [facility] 24 hr 00:00: 00:00 mouth [place] tablet 00 :00 daily with Medical breakfast. Branch STOP REGULAR METFORMIN. ibuprofen 2022-0 Yes [id number] 600mg Take 1 [facility] 600 mg 5-19 [id number] tablet by [facility] of tablet 00:00: mouth [place] 00 every 6 Medical (six) Branch hours as needed for Pain (scale 4-6). ibuprofen 2022-0 Yes [id number] 600mg Take 1 [facility] 600 mg 5-19 [id number] tablet by [facility] of tablet 00:00: mouth [place] 00 every 6 Medical (six) Branch hours as needed for Pain (scale 4-6). ibuprofen 2022-0 Yes [id number] 600mg Take 1 [facility] 600 mg 5-19 [id number] tablet by [facility] of tablet 00:00: mouth [place] 00 every 6 Medical (six) Branch hours as needed for Pain (scale 4-6). ibuprofen 2022-0 Yes [id number] 600mg Take 1 [facility] 600 mg 5-19 [id number] tablet by [facility] of tablet 00:00: mouth [place] 00 every 6 Medical (six) Branch hours as needed for Pain (scale 4-6). ibuprofen 2022-0 Yes [id number] 600mg Take 1 [facility] 600 mg 5-19 [id number] tablet by [facility] of tablet 00:00: mouth [place] 00 every 6 Medical (six) Branch hours as needed for Pain (scale 4-6). ibuprofen 2022-0 Yes [id number] 600mg Take 1 [facility] 600 mg 5-19 [id number] tablet by [facility] of tablet 00:00: mouth [place] 00 every 6 Medical (six) Branch hours as needed for Pain (scale 4-6). ibuprofen 2022-0 Yes [id number] 600mg Take 1 [facility] 600 mg 5-19 [id number] tablet by [facility] of tablet 00:00: mouth [place] 00 every 6 Medical (six) Branch hours as needed for Pain (scale 4-6). ibuprofen 2022-0 Yes [id number] 600mg Take 1 [facility] 600 mg 5-19 [id number] tablet by [facility] of tablet 00:00: mouth [place] 00 every 6 Medical (six) Branch hours as needed for Pain (scale 4-6). ibuprofen 2022-0 Yes [id number] 600mg Take 1 [facility] 600 mg 5-19 [id number] tablet by [facility] of tablet 00:00: mouth [place] 00 every 6 Medical (six) Branch hours as needed for Pain (scale 4-6). ibuprofen 2022-0 Yes [id number] 600mg Take 1 [facility] 600 mg 5-19 [id number] tablet by [facility] of tablet 00:00: mouth [place] 00 every 6 Medical (six) Branch hours as needed for Pain (scale 4-6). ibuprofen 2022-0 Yes [id number] 600mg Take 1 [facility] 600 mg 5-19 [id number] tablet by [facility] of tablet 00:00: mouth [place] 00 every 6 Medical (six) Branch hours as needed for Pain (scale 4-6). ibuprofen 2022-0 Yes [id number] 600mg Take 1 [facility] 600 mg 5-19 [id number] tablet by [facility] of tablet 00:00: mouth [place] 00 every 6 Medical (six) Branch hours as needed for Pain (scale 4-6). ibuprofen 2022-0 Yes [id number] 600mg Take 1 [facility] 600 mg 5-19 [id number] tablet by [facility] of tablet 00:00: mouth [place] 00 every 6 Medical (six) Branch hours as needed for Pain (scale 4-6). ibuprofen 2022-0 Yes [id number] 600mg Take 1 [facility] 600 mg 5-19 [id number] tablet by [facility] of tablet 00:00: mouth [place] 00 every 6 Medical (six) Branch hours as needed for Pain (scale 4-6). ibuprofen 2022-0 Yes [id number] 600mg Take 1 [facility] 600 mg 5-19 [id number] tablet by [facility] of tablet 00:00: mouth [place] 00 every 6 Medical (six) Branch hours as needed for Pain (scale 4-6). ibuprofen 2022-0 Yes [id number] 600mg Take 1 [facility] 600 mg 5-19 [id number] tablet by [facility] of tablet 00:00: mouth [place] 00 every 6 Medical (six) Branch hours as needed for Pain (scale 4-6). ibuprofen 2022-0 Yes [id number] 600mg Take 1 [facility] 600 mg 5-19 [id number] tablet by [facility] of tablet 00:00: mouth [place] 00 every 6 Medical (six) Branch hours as needed for Pain (scale 4-6). ibuprofen 2022-0 Yes [id number] 600mg Take 1 [facility] 600 mg 5-19 [id number] tablet by [facility] of tablet 00:00: mouth [place] 00 every 6 Medical (six) Branch hours as needed for Pain (scale 4-6). ibuprofen 2022-0 Yes [id number] 600mg Take 1 [facility] 600 mg 5-19 [id number] tablet by [facility] of tablet 00:00: mouth [place] 00 every 6 Medical (six) Branch hours as needed for Pain (scale 4-6). ibuprofen 2022-0 Yes [id number] 600mg Take 1 [facility] 600 mg 5-19 [id number] tablet by [facility] of tablet 00:00: mouth [place] 00 every 6 Medical (six) Branch hours as needed for Pain (scale 4-6). ibuprofen 2022-0 Yes [id number] 600mg Take 1 [facility] 600 mg 5-19 [id number] tablet by [facility] of tablet 00:00: mouth [place] 00 every 6 Medical (six) Branch hours as needed for Pain (scale 4-6). ibuprofen 2022-0 Yes [id number] 600mg Take 1 [facility] 600 mg 5-19 [id number] tablet by [facility] of tablet 00:00: mouth [place] 00 every 6 Medical (six) Branch hours as needed for Pain (scale 4-6). ibuprofen 2022-0 Yes [id number] 600mg Take 1 [facility] 600 mg 5-19 [id number] tablet by [facility] of tablet 00:00: mouth [place] 00 every 6 Medical (six) Branch hours as needed for Pain (scale 4-6). ibuprofen 2022-0 Yes [id number] 600mg Take 1 [facility] 600 mg 5-19 [id number] tablet by [facility] of tablet 00:00: mouth [place] 00 every 6 Medical (six) Branch hours as needed for Pain (scale 4-6). ibuprofen 2022-0 Yes [id number] 600mg Take 1 [facility] 600 mg 5-19 [id number] tablet by [facility] of tablet 00:00: mouth [place] 00 every 6 Medical (six) Branch hours as needed for Pain (scale 4-6). ibuprofen 2022-0 Yes [id number] 600mg Take 1 [facility] 600 mg 5-19 [id number] tablet by [facility] of tablet 00:00: mouth [place] 00 every 6 Medical (six) Branch hours as needed for Pain (scale 4-6). ibuprofen 2022-0 Yes [id number] 600mg Take 1 [facility] 600 mg 5-19 [id number] tablet by [facility] of tablet 00:00: mouth [place] 00 every 6 Medical (six) Branch hours as needed for Pain (scale 4-6). ibuprofen 2022-0 Yes [id number] 600mg Take 1 [facility] 600 mg 5-19 [id number] tablet by [facility] of tablet 00:00: mouth [place] 00 every 6 Medical (six) Branch hours as needed for Pain (scale 4-6). ibuprofen 2022-0 Yes [id number] 600mg Take 1 [facility] 600 mg 5-19 [id number] tablet by [facility] of tablet 00:00: mouth [place] 00 every 6 Medical (six) Branch hours as needed for Pain (scale 4-6). ibuprofen 2022-0 Yes [id number] 600mg Take 1 [facility] 600 mg 5-19 [id number] tablet by [facility] of tablet 00:00: mouth [place] 00 every 6 Medical (six) Branch hours as needed for Pain (scale 4-6). ibuprofen 2021-0 Yes [id number] 600mg Take 1 [facility] 600 mg 5-19 [id number] tablet by [facility] of tablet 00:00: mouth [place] 00 every 6 Medical (six) Branch hours as needed for Pain (scale 4-6). ibuprofen 2-0 Yes [id number] 600mg Take 1 [facility] 600 mg 5-19 [id number] tablet by [facility] of tablet 00:00: mouth [place] 00 every 6 Medical (six) Branch hours as needed for Pain (scale 4-6). ibuprofen 2021-0 Yes [id number] 600mg Take 1 [facility] 600 mg 5-19 [id number] tablet by [facility] of tablet 00:00: mouth [place] 00 every 6 Medical (six) Branch hours as needed for Pain (scale 4-6). ibuprofen 2-0 Yes [id number] 600mg Take 1 [facility] 600 mg 5-19 [id number] tablet by [facility] of tablet 00:00: mouth [place] 00 every 6 Medical (six) Branch hours as needed for Pain (scale 4-6). ibuprofen 2022-0 Yes [id number] 600mg Take 1 [facility] 600 mg 5-19 [id number] tablet by [facility] of tablet 00:00: mouth [place] 00 every 6 Medical (six) Branch hours as needed for Pain (scale 4-6). ibuprofen 2022-0 Yes [id number] 600mg Take 1 [facility] 600 mg 5-19 [id number] tablet by [facility] of tablet 00:00: mouth [place] 00 every 6 Medical (six) Branch hours as needed for Pain (scale 4-6). ibuprofen 2022-0 2022- No [id number] 600mg Take 1 [facility] 600 mg 5-19 - [id number] tablet by [facility] o f tablet 00:00: 00:00 mouth [place] 00 :00 every 6 Medical (six) Branch hours as needed for Pain (scale 4-6). ibuprofen 2021-0 2- No [id number] 600mg Take 1 [facility] 600 mg 02-11 [id number] tablet by [facility] o f tablet 00:00: 00:00 mouth [place] 00 :00 every 6 Medical (six) Branch hours as needed for Pain (scale 4-6). ibuprofen 2021-0 2- No [id number] 600mg Take 1 [facility] 600 mg 02-11 [id number] tablet by [facility] o f tablet 00:00: 00:00 mouth [place] 00 :00 every 6 Medical (six) Branch hours as needed for Pain (scale 4-6). topiramate 202-0 Yes [id number] 50mg Take 2 [facility] 25 mg 5-16 tablets by [facility] of tablet 00:00: [address] (two) Medical times Branch daily. topiramate 2021-0 Yes [id number] 50mg Take 2 [facility] 25 mg 5-16 tablets by [facility] of tablet 00:00: mouth [address] [place] [address] (two) Medical times Branch daily. topiramate 2021-0 Yes [id number] 50mg Take 2 [facility] 25 mg 5-16 tablets by [facility] of tablet 00:00: mouth [address] [place] [address] (two) Medical times Branch daily. topiramate 2022-0 Yes [id number] 50mg Take 2 [facility] 25 mg 5-16 tablets by [facility] of tablet 00:00: [address] (two) Medical times Branch daily. topiramate 2022-0 Yes [id number] 50mg Take 2 [facility] 25 mg 5-16 tablets by [facility] of tablet 00:00: mouth [address] [place] [address] (two) Medical times Branch daily. topiramate 2022-0 Yes [id number] 50mg Take 2 [facility] 25 mg 5-16 tablets by [facility] of tablet 00:00: mouth [address] [place] [address] (two) Medical times Branch daily. topiramate 2022-0 Yes [id number] 50mg Take 2 [facility] 25 mg 5-16 tablets by [facility] of tablet 00:00: mouth [address] [place] [address] (two) Medical times Branch daily. topiramate 2022-0 Yes [id number] 50mg Take 2 [facility] 25 mg 5-16 tablets by [facility] of tablet 00:00: mouth 2 [place] 00 (two) Medical times Branch daily. topiramate 2022-0 Yes [id number] 50mg Take 2 [facility] 25 mg 5-16 tablets by [facility] of tablet 00:00: mouth 2 (two) Medical times Branch daily. SUMAtriptan 2022-0 Yes [id number] 50mg Take 1 [facility] 50 mg 5-16 tablet by [facility] of tablet 00:00: mouth as [place] 00 needed for Medical Migraine. Branch topiramate 2-0 Yes [id number] 50mg Take 2 [facility] 25 mg 5-16 tablets by [facility] of tablet 00:00: mouth 2 (two) Medical times Branch daily. SUMAtriptan 2022-0 Yes [id number] 50mg Take 1 [facility] 50 mg 5-16 tablet by [facility] of tablet 00:00: mouth as [place] 00 needed for Medical Migraine. Branch topiramate 2-0 Yes [id number] 50mg Take 2 [facility] 25 mg 5-16 tablets by [facility] of tablet 00:00: mouth 2 (two) Medical times Branch daily. SUMAtriptan 2-0 Yes [id number] 50mg Take 1 [facility] 50 mg 5-16 tablet by [facility] of tablet 00:00: mouth as [place] 00 needed for Medical Migraine. Branch topiramate 2-0 Yes [id number] 50mg Take 2 [facility] 25 mg 5-16 tablets by [facility] of tablet 00:00: mouth 2 (two) Medical times Branch daily. SUMAtriptan 2-0 Yes [id number] 50mg Take 1 [facility] 50 mg 5-16 tablet by [facility] of tablet 00:00: mouth as [place] 00 needed for Medical Migraine. Branch topiramate 2-0 Yes [id number] 50mg Take 2 [facility] 25 mg 5-16 tablets by [facility] of tablet 00:00: mouth 2 (two) Medical times Branch daily. SUMAtriptan 2022-0 Yes [id number] 50mg Take 1 [facility] 50 mg 5-16 tablet by [facility] of tablet 00:00: mouth as [place] 00 needed for Medical Migraine. Branch topiramate 2022-0 Yes [id number] 50mg Take 2 [facility] 25 mg 5-16 tablets by [facility] of tablet 00:00: mouth 2 (two) Medical times Branch daily. SUMAtriptan 2022-0 Yes [id number] 50mg Take 1 [facility] 50 mg 5-16 tablet by [facility] of tablet 00:00: mouth as 00 needed for Medical Migraine. Branch topiramate 2021-0 Yes [id number] 50mg Take 2 [facility] 25 mg 5-16 tablets by [facility] of tablet 00:00: mouth 2 00 (two) Medical times Branch daily. topiramate 2021-0 Yes [id number] 50mg Take 2 [facility] 25 mg 5-16 tablets by [facility] of tablet 00:00: mouth 2 00 (two) Medical times Branch daily. topiramate 2021-0 Yes [id number] 50mg Take 2 [facility] 25 mg 5-16 tablets by [facility] of tablet 00:00: mouth 2 (two) Medical times Branch daily. topiramate 2021-0 Yes [id number] 50mg Take 2 [facility] 25 mg 5-16 tablets by [facility] of tablet 00:00: mouth 2 00 (two) Medical times Branch daily. topiramate 2021-0 Yes [id number] 50mg Take 2 [facility] 25 mg 5-16 tablets by [facility] of tablet 00:00: mouth 2 (two) Medical times Branch daily. topiramate 2021-0 Yes [id number] 50mg Take 2 [facility] 25 mg 5-16 tablets by [facility] of tablet 00:00: mouth 2 (two) Medical times Branch daily. topiramate 2021-2021- No [id number] 50mg Take 2 [facility] 25 mg 5-16 09-01 tablets by [facility] of tablet 00:00: 00:00 mouth 2 [place] 00 :00 (two) Medical times Branch daily. SUMAtriptan 2021-2021- No [id number] 50mg Take 1 [facility] 50 mg 5-16 [...] PadM 5-08 Dose to [facility] [place] 00 before Medical meals. Branch ALCOHOL 2021-0 Yes 1{dose} Apply 1 [facility] ers PADS PadM 5-08 Dose to [facility] 00:00: [facility] [place] 00 before Medical meals. Branch ALCOHOL 2021-0 Yes 1{dose} Apply 1 [facility] ers PADS PadM 5-08 Dose to [facility] 00:00: [facility] [place] 00 before Medical meals. Branch ALCOHOL 2021-0 Yes 1{dose} Apply 1 [facility] ers PADS PadM 5-08 Dose to [facility] of 00:00: [facility] [place] 00 before Medical meals. Branch ALCOHOL 2021-0 Yes 1{dose} Apply 1 [facility] ers PADS PadM 5-08 Dose to [facility] of 00:00: [facility] [place] 00 before Medical meals. Branch ALCOHOL 2021-0 Yes 1{dose} Apply 1 [facility] ers PADS PadM 5-08 Dose to [facility] of 00:00: [facility] [place] 00 before Medical meals. Branch ALCOHOL 2021-0 Yes 1{dose} Apply 1 [facility] ers PADS PadM 5-08 Dose to [facility] of 00:00: [facility] [place] 00 before Medical meals. Branch ALCOHOL 2021-0 Yes 1{dose} Apply 1 [facility] ers PADS PadM 5-08 Dose to [facility] of 00:00: [facility] [place] 00 before Medical meals. Branch ALCOHOL 2021-0 Yes 1{dose} Apply 1 [facility] ers PADS PadM 5-08 Dose to [facility] of 00:00: [facility] [place] 00 before Medical meals. Branch ALCOHOL 2021-0 Yes 1{dose} Apply 1 [facility] ers PADS PadM 5-08 Dose to [facility] of 00:00: [facility] [place] 00 before Medical meals. Branch ALCOHOL 2021-0 Yes 1{dose} Apply 1 [facility] ers PADS PadM 5-08 Dose to [facility] of 00:00: [facility] [place] 00 before Medical meals. Branch ALCOHOL 2021-0 Yes 1{dose} Apply 1 [facility] ers PADS PadM 5-08 Dose to [facility] of 00:00: [facility] [place] 00 before Medical meals. Branch ALCOHOL 2021-0 Yes 1{dose} Apply 1 [facility] ers PADS PadM 5-08 Dose to [facility] of 00:00: [facility] [place] 00 before Medical meals. Branch ALCOHOL [...] PadM 5-08 Dose to [facility] of 00:00: [facility] [place] 00 before Medical meals. Branch ALCOHOL Yes 1{dose} Apply 1 [facility] ers PADS PadM 5-08 Dose to [facility] 00:00: [facility] [place] 00 before Medical meals. Branch ALCOHOL 0 Yes 1{dose} Apply 1 [facility] ers PADS PadM 5-08 Dose to [facility] 00:00: [facility] [place] 00 before Medical meals. Branch ALCOHOL 0 Yes 1{dose} Apply 1 [facility] ers PADS PadM 5-08 Dose to [facility] of 00:00: [facility] [place] 00 before Medical meals. Branch ALCOHOL Yes 1{dose} Apply 1 [facility] ers PADS PadM 5-08 Dose to [facility] of 00:00: [facility] [place] 00 before Medical meals. Branch ALCOHOL Yes 1{dose} Apply 1 [facility] ers PADS PadM 5-08 Dose to [facility] of 00:00: [facility] [place] 00 before Medical meals. Branch ALCOHOL Yes 1{dose} Apply 1 [facility] ers PADS PadM 5-08 Dose to [facility] of 00:00: [facility] [place] 00 before Medical meals. Branch ALCOHOL Yes 1{dose} Apply 1 [facility] ers PADS PadM 5-08 Dose to [facility] of 00:00: [facility] [place] 00 before Medical meals. Branch ALCOHOL Yes 1{dose} Apply 1 [facility] ers PADS PadM 5-08 Dose to [facility] of 00:00: [facility] [place] 00 before Medical meals. Branch ALCOHOL 2021- No 1{dose} Apply 1 [facility] vers PADS PadM 5-08 -22 Dose to ity of 00:00: 00:00 [facility]) [place] 00 :00 before Medical meals. Branch ALCOHOL 2021- No 1{dose} Apply 1 [facility] vers PADS PadM 5-08 -22 Dose to ity of 00:00: 00:00 [facility]) [place] 00 :00 before Medical meals. Branch ALCOHOL 2021- No 1{dose} Apply 1 [facility] vers PADS PadM 5-08 -22 Dose to ity of 00:00: 00:00 [facility]) [place] 00 :00 before Medical meals. Branch pregabalin 2022-0 Yes [id number] 150mg Take 1 [facility] 150 mg 4-29 capsule by ity of capsule 00:00: mouth 3 (three) Medical times Branch daily. busPIRone 2021-0 Yes [id number] 20mg Take 2 [facility] [place] 10 mg 4-29 tablets by [facility] of tablet 00:00: mouth (two) Medical times Branch daily. citalopram 2021-0 Yes [id number] 40mg Take 1 [facility] 40 mg 4-29 tablet by [facility] of tablet 00:00: mouth 00 daily. Medical Branch pregabalin 2021-0 Yes [id number] 150mg Take 1 [facility] 150 mg 4-29 capsule by it[facility] of capsule 00:00: mouth (three) Medical times Branch daily. busPIRone 2021-0 Yes [id number] 20mg Take 2 [facility] [place] 10 mg 4-29 tablets by [facility] of tablet 00:00: mouth (two) Medical times Branch daily. citalopram 2021-0 Yes [id number] 40mg Take 1 [facility] 40 mg 4-29 tablet by [facility] of tablet 00:00: mouth daily. Medical Branch pregabalin 2021-0 Yes [id number] 150mg Take 1 [facility] 150 mg 4-29 capsule by it[facility] of capsule 00:00: mouth (three) Medical times Branch daily. busPIRone 2021-0 Yes [id number] 20mg Take 2 [facility] [place] 10 mg 4-29 tablets by [facility] of tablet 00:00: mouth (two) Medical times Branch daily. citalopram 2021-0 Yes [id number] 40mg Take 1 [facility] 40 mg 4-29 tablet by [facility] of tablet 00:00: mouth 00 daily. Medical Branch pregabalin 2021-0 Yes [id number] 150mg Take 1 [facility] 150 mg 4-29 capsule by it[facility] of capsule 00:00: mouth 3 (three) Medical times Branch daily. busPIRone 2021-0 Yes [id number] 20mg Take 2 [facility] [place] 10 mg 4-29 tablets by [facility] of tablet 00:00: mouth (two) Medical times Branch daily. citalopram 2021-0 Yes [id number] 40mg Take 1 [facility] 40 mg 4-29 tablet by it[facility] of tablet 00:00: mouth 00 daily. Medical Branch pregabalin 2021-0 Yes [id number] 150mg Take 1 [facility] 150 mg 4-29 capsule by ity of capsule 00:00: mouth 3 (three) Medical times Branch daily. busPIRone 2021-0 Yes [id number] 20mg Take 2 [facility] [place] 10 mg 4-29 tablets by it[facility] of tablet 00:00: mouth (two) Medical times Branch daily. citalopram 2021-0 Yes [id number] 40mg Take 1 [facility] 40 mg 4-29 tablet by it[facility] of tablet 00:00: mouth 00 daily. Medical Branch pregabalin 2021-0 Yes [id number] 150mg Take 1 [facility] 150 mg 4-29 capsule by ity of capsule 00:00: mouth 3 (three) Medical times Branch daily. busPIRone 2021-0 Yes [id number] 20mg Take 2 [facility] [place] 10 mg 4-29 tablets by [facility] of tablet 00:00: mouth (two) Medical times Branch daily. citalopram 2021-0 Yes [id number] 40mg Take 1 [facility] 40 mg 4-29 tablet by it[facility] of tablet 00:00: mouth daily. Medical Branch pregabalin 2021-0 Yes [id number] 150mg Take 1 [facility] 150 mg 4-29 capsule by ity of capsule 00:00: mouth (three) Medical times Branch daily. busPIRone 2021-0 Yes [id number] 20mg Take 2 [facility] [place] 10 mg 4-29 tablets by [facility] of tablet 00:00: mouth (two) Medical times Branch daily. citalopram 2021-0 Yes [id number] 40mg Take 1 [facility] 40 mg 4-29 tablet by [facility] of tablet 00:00: mouth 00 daily. Medical Branch pregabalin 2021-0 Yes [id number] 150mg Take 1 [facility] 150 mg 4-29 capsule by ity of capsule 00:00: mouth 3 (three) Medical times Branch daily. busPIRone 2021-0 Yes [id number] 20mg Take 2 [facility] [place] 10 mg 4-29 tablets by ity of tablet 00:00: mouth 2 [place] 00 (two) Medical times Branch daily. citalopram 2021-0 Yes [id number] 40mg Take 1 [facility] 40 mg 4-29 tablet by [facility] of tablet 00:00: mouth 00 daily. Medical Branch pregabalin 2021-0 Yes [id number] 150mg Take 1 [facility] 150 mg 4-29 capsule by ity of capsule 00:00: mouth 3 (three) Medical times Branch daily. busPIRone 2021-0 Yes [id number] 20mg Take 2 [facility] [place] 10 mg 4-29 tablets by ity of tablet 00:00: mouth (two) Medical times Branch daily. citalopram 2021-0 Yes [id number] 40mg Take 1 [facility] 40 mg 4-29 tablet by [facility] of tablet 00:00: mouth 00 daily. Medical Branch pregabalin 2021-0 Yes [id number] 150mg Take 1 [facility] 150 mg 4-29 capsule by ity of capsule 00:00: mouth (three) Medical times Branch daily. busPIRone 2021-0 Yes [id number] 20mg Take 2 [facility] [place] 10 mg 4-29 tablets by ity of tablet 00:00: mouth (two) Medical times Branch daily. citalopram 2021-0 Yes [id number] 40mg Take 1 [facility] 40 mg 4-29 tablet by [facility] of tablet 00:00: mouth daily. Medical Branch pregabalin 2021-0 Yes [id number] 150mg Take 1 [facility] 150 mg 4-29 capsule by ity of capsule 00:00: mouth (three) Medical times Branch daily. busPIRone 2-0 Yes [id number] 20mg Take 2 [facility] [place] 10 mg 4-29 tablets by [facility] of tablet 00:00: mouth (two) Medical times Branch daily. citalopram 2-0 Yes [id number] 40mg Take 1 [facility] 40 mg 4-29 tablet by [facility] of tablet 00:00: mouth 00 daily. Medical Branch pregabalin 2021-0 Yes [id number] 150mg Take 1 [facility] 150 mg 4-29 capsule by it[facility] of capsule 00:00: mouth 3 (three) Medical times Branch daily. busPIRone 2022-0 Yes [id number] 20mg Take 2 [facility] [place] 10 mg 4-29 tablets by [facility] of tablet 00:00: mouth (two) Medical times Branch daily. citalopram 2021-0 Yes [id number] 40mg Take 1 [facility] 40 mg 4-29 tablet by [facility] of tablet 00:00: mouth 00 daily. Medical Branch pregabalin 2021-0 Yes [id number] 150mg Take 1 [facility] 150 mg 4-29 capsule by ity of capsule 00:00: mouth 3 (three) Medical times Branch daily. busPIRone 2021-0 Yes [id number] 20mg Take 2 [facility] [place] 10 mg 4-29 tablets by [facility] of tablet 00:00: mouth (two) Medical times Branch daily. citalopram 2021-0 Yes [id number] 40mg Take 1 [facility] 40 mg 4-29 tablet by it[facility] of tablet 00:00: mouth daily. Medical Branch pregabalin 2021-0 Yes [id number] 150mg Take 1 [facility] 150 mg 4-29 capsule by ity of capsule 00:00: mouth (three) Medical times Branch daily. busPIRone 2021-0 Yes [id number] 20mg Take 2 [facility] 10 mg 4-29 tablets by [facility] tablet 00:00: mouth (two) [facility] times [facility] daily. citalopram 2021-0 Yes [id number] 40mg Take 1 [facility] 40 mg 4-29 tablet by [facility] tablet 00:00: mouth daily. [facility] pregabalin 2021-0 Yes [id number] 150mg Take 1 [facility] 150 mg 4-29 capsule by [facility] capsule 00:00: mouth 3 (three) [facility] times [facility] daily. busPIRone 2021-0 Yes [id number] 20mg Take 2 [facility] 10 mg 4-29 tablets by [facility] tablet 00:00: mouth (two) [facility] times [facility] daily. citalopram 2021-0 Yes [id number] 40mg Take 1 [facility] 40 mg 4-29 tablet by [facility] tablet 00:00: mouth 00 daily. [facility] pregabalin 2021-0 Yes [id number] 150mg Take 1 [facility] 150 mg 4-29 capsule by [facility] capsule 00:00: mouth 3 (three) [facility] times [facility] daily. busPIRone 2021-0 Yes [id number] 20mg Take 2 [facility] 10 mg 4-29 tablets by [facility] tablet 00:00: mouth (two) [facility] times [facility] daily. citalopram 2021-0 Yes [id number] 40mg Take 1 [facility] 40 mg 4-29 tablet by [facility] tablet 00:00: mouth 00 daily. [facility] pregabalin 2021-0 Yes [id number] 150mg Take 1 [facility] 150 mg 4-29 capsule by [facility] capsule 00:00: mouth (three) [facility] times [facility] daily. busPIRone 2021-0 Yes [id number] 20mg Take 2 [facility] 10 mg 4-29 tablets by [facility] tablet 00:00: mouth (two) [facility] times [facility] daily. citalopram 2021-0 Yes [id number] 40mg Take 1 [facility] 40 mg 4-29 tablet by [facility] tablet 00:00: mouth daily. [facility] pregabalin 2021-0 Yes [id number] 150mg Take 1 [facility] 150 mg 4-29 capsule by [facility] capsule 00:00: mouth (three) [facility] times [facility] daily. busPIRone 2021-0 Yes [id number] 20mg Take 2 [facility] 10 mg 4-29 tablets by [facility] tablet 00:00: mouth (two) [facility] times [facility] daily. citalopram 2021-0 Yes [id number] 40mg Take 1 [facility] 40 mg 4-29 tablet by [facility] tablet 00:00: mouth daily. [facility] pregabalin 2021-0 Yes [id number] 150mg Take 1 [facility] 150 mg 4-29 capsule by [facility] capsule 00:00: mouth (three) [facility] times [facility] daily. busPIRone 2021-0 Yes [id number] 20mg Take 2 [facility] 10 mg 4-29 tablets by [facility] tablet 00:00: mouth (two) [facility] times [facility] daily. citalopram 2021-0 Yes [id number] 40mg Take 1 [facility] 40 mg 4-29 tablet by [facility] tablet 00:00: mouth 00 daily. [facility] pregabalin 2021-0 Yes [id number] 150mg Take 1 [facility] 150 mg 4-29 capsule by [facility] capsule 00:00: mouth 3 (three) [facility] times [facility] daily. busPIRone 2021-0 Yes [id number] 20mg Take 2 [facility] 10 mg 4-29 tablets by [facility] tablet 00:00: mouth (two) [facility] times [facility] daily. citalopram 2021-0 Yes [id number] 40mg Take 1 [facility] 40 mg 4-29 tablet by [facility] tablet 00:00: mouth 00 daily. [facility] pregabalin 2021-0 Yes [id number] 150mg Take 1 [facility] 150 mg 4-29 capsule by [facility] capsule 00:00: mouth (three) [facility] times [facility] daily. busPIRone 2021-0 Yes [id number] 20mg Take 2 [facility] 10 mg 4-29 tablets by [facility] tablet 00:00: mouth (two) [facility] times [facility] daily. citalopram 2021-0 Yes [id number] 40mg Take 1 [facility] 40 mg 4-29 tablet by [facility] tablet 00:00: mouth daily. [facility] pregabalin 2021-0 Yes [id number] 150mg Take 1 [facility] 150 mg 4-29 capsule by [facility] capsule 00:00: mouth (three) [facility] times [facility] daily. busPIRone 2021-0 Yes [id number] 20mg Take 2 [facility] 10 mg 4-29 tablets by [facility] tablet 00:00: mouth (two) [facility] times [facility] daily. citalopram 2021-0 Yes [id number] 40mg Take 1 [facility] 40 mg 4-29 tablet by [facility] tablet 00:00: mouth daily. [facility] pregabalin 2021-0 Yes [id number] 150mg Take 1 [facility] 150 mg 4-29 capsule by [facility] capsule 00:00: mouth 3 (three) [facility] times [facility] daily. busPIRone 2-0 Yes [id number] 20mg Take 2 [facility] 10 mg 4-29 tablets by [facility] tablet 00:00: mouth (two) [facility] times [facility] daily. citalopram 2021-0 Yes [id number] 40mg Take 1 [facility] 40 mg 4-29 tablet by [facility] tablet 00:00: mouth 00 daily. [facility] pregabalin 2021-0 Yes [id number] 150mg Take 1 [facility] 150 mg 4-29 capsule by [facility] capsule 00:00: mouth (three) [facility] times [facility] daily. busPIRone 2021-0 Yes [id number] 20mg Take 2 [facility] 10 mg 4-29 tablets by [facility] tablet 00:00: mouth (two) [facility] times [facility] daily. citalopram 2021-0 Yes [id number] 40mg Take 1 [facility] 40 mg 4-29 tablet by [facility] tablet 00:00: mouth daily. [facility] pregabalin 2021-0 Yes [id number] 150mg Take 1 [facility] 150 mg 4-29 capsule by [facility] capsule 00:00: mouth (three) [facility] times [facility] daily. busPIRone 2021-0 Yes [id number] 20mg Take 2 [facility] 10 mg 4-29 tablets by [facility] tablet 00:00: mouth (two) [facility] times [facility] daily. citalopram 2021-0 Yes [id number] 40mg Take 1 [facility] 40 mg 4-29 tablet by [facility] tablet 00:00: mouth daily. [facility] pregabalin 2021-0 Yes [id number] 150mg Take 1 [facility] 150 mg 4-29 capsule by [facility] capsule 00:00: mouth (three) [facility] times [facility] daily. busPIRone 2021-0 Yes [id number] 20mg Take 2 [facility] 10 mg 4-29 tablets by [facility] tablet 00:00: mouth (two) [facility] times [facility] daily. citalopram 2021-0 Yes [id number] 40mg Take 1 [facility] 40 mg 4-29 tablet by [facility] tablet 00:00: mouth daily. [facility] pregabalin 2021-0 Yes [id number] 150mg Take 1 [facility] 150 mg 4-29 capsule by [facility] capsule 00:00: mouth (three) [facility] times [facility] daily. busPIRone 2021-0 Yes [id number] 20mg Take 2 [facility] 10 mg 4-29 tablets by [facility] tablet 00:00: mouth (two) [facility] times [facility] daily. citalopram 2021-0 Yes [id number] 40mg Take 1 [facility] 40 mg 4-29 tablet by [facility] tablet 00:00: mouth 00 daily. [facility] pregabalin 2021-0 Yes [id number] 150mg Take 1 [facility] 150 mg 4-29 capsule by [facility] capsule 00:00: mouth 3 (three) [facility] times [facility] daily. busPIRone 2021-0 Yes [id number] 20mg Take 2 [facility] 10 mg 4-29 tablets by [facility] tablet 00:00: mouth (two) [facility] times [facility] daily. citalopram 2021-0 Yes [id number] 40mg Take 1 [facility] 40 mg 4-29 tablet by [facility] tablet 00:00: mouth 00 daily. [facility] pregabalin 2021-0 Yes [id number] 150mg Take 1 [facility] 150 mg 4-29 capsule by [facility] capsule 00:00: mouth (three) [facility] times [facility] daily. busPIRone 2021-0 Yes [id number] 20mg Take 2 [facility] 10 mg 4-29 tablets by [facility] tablet 00:00: mouth (two) [facility] times [facility] daily. citalopram 2021-0 Yes [id number] 40mg Take 1 [facility] 40 mg 4-29 tablet by [facility] tablet 00:00: mouth daily. [facility] pregabalin 2021-0 Yes [id number] 150mg Take 1 [facility] 150 mg 4-29 capsule by [facility] capsule 00:00: mouth (three) [facility] times [facility] daily. busPIRone 2021-0 Yes [id number] 20mg Take 2 [facility] 10 mg 4-29 tablets by [facility] tablet 00:00: mouth (two) [facility] times [facility] daily. citalopram 2021-0 Yes [id number] 40mg Take 1 [facility] 40 mg 4-29 tablet by [facility] tablet 00:00: mouth 00 daily. [facility] pregabalin 2021-0 Yes [id number] 150mg Take 1 [facility] 150 mg 4-29 capsule by [facility] capsule 00:00: mouth 3 (three) [facility] times [facility] daily. busPIRone 2021-0 Yes [id number] 20mg Take 2 [facility] 10 mg 4-29 tablets by [facility] tablet 00:00: mouth (two) [facility] times [facility] daily. citalopram 2021-0 Yes [id number] 40mg Take 1 [facility] 40 mg 4-29 tablet by [facility] tablet 00:00: mouth daily. [facility] pregabalin 2021-0 Yes [id number] 150mg Take 1 [facility] 150 mg 4-29 capsule by [facility] capsule 00:00: mouth (three) [facility] times [facility] daily. busPIRone 2021-0 Yes [id number] 20mg Take 2 [facility] 10 mg 4-29 tablets by [facility] tablet 00:00: mouth (two) [facility] times [facility] daily. citalopram 2021-0 Yes [id number] 40mg Take 1 [facility] 40 mg 4-29 tablet by [facility] tablet 00:00: mouth daily. [facility] pregabalin 2021-0 Yes [id number] 150mg Take 1 [facility] 150 mg 4-29 capsule by [facility] capsule 00:00: mouth (three) [facility] times [facility] daily. busPIRone 2021-0 Yes [id number] 20mg Take 2 [facility] 10 mg 4-29 tablets by [facility] tablet 00:00: mouth (two) [facility] times [facility] daily. citalopram 2021-0 Yes [id number] 40mg Take 1 [facility] 40 mg 4-29 tablet by [facility] tablet 00:00: mouth daily. [facility] pregabalin 2021-0 Yes [id number] 150mg Take 1 [facility] 150 mg 4-29 capsule by [facility] capsule 00:00: mouth (three) [facility] times [facility] daily. busPIRone 2021-0 Yes [id number] 20mg Take 2 [facility] 10 mg 4-29 tablets by [facility] tablet 00:00: mouth (two) [facility] times [facility] daily. citalopram 2021-0 Yes [id number] 40mg Take 1 [facility] 40 mg 4-29 tablet by [facility] tablet 00:00: mouth [place] 00 daily. [facility] pregabalin 2021-0 Yes [id number] 150mg Take 1 [facility] 150 mg 4-29 capsule by [facility] capsule 00:00: mouth 3 (three) [facility] times [facility] daily. busPIRone 2021-0 Yes [id number] 20mg Take 2 [facility] 10 mg 4-29 tablets by [facility] tablet 00:00: mouth 2 (two) Medical times [facility] daily. citalopram 2021-0 Yes [id number] 40mg Take 1 [facility] 40 mg 4-29 tablet by [facility] tablet 00:00: mouth [place] 00 daily. [facility] pregabalin 2021-0 Yes [id number] 150mg Take 1 [facility] 150 mg 4-29 capsule by [facility] capsule 00:00: mouth 3 (three) [facility] times [facility] daily. busPIRone 2021-0 Yes [id number] 20mg Take 2 [facility] 10 mg 4-29 tablets by [facility] tablet 00:00: mouth (two) [facility] times [facility] daily. citalopram 2021-0 Yes [id number] 40mg Take 1 [facility] 40 mg 4-29 tablet by [facility] tablet 00:00: mouth 00 daily. [facility] pregabalin 2021-0 Yes [id number] 150mg Take 1 [facility] 150 mg 4-29 capsule by [facility] capsule 00:00: mouth 3 (three) Medical times [facility] daily. busPIRone 2021-0 Yes [id number] 20mg Take 2 [facility] 10 mg 4-29 tablets by [facility] tablet 00:00: mouth 2 (two) Medical times [facility] daily. citalopram 2021-0 Yes [id number] 40mg Take 1 [facility] 40 mg 4-29 tablet by [facility] tablet 00:00: mouth [place] 00 daily. [facility] citalopram 2021-0 Yes [id number] 40mg Take 1 [facility] 40 mg 4-29 tablet by [facility] tablet 00:00: mouth [place] 00 daily. [facility] citalopram 2021-0 Yes [id number] 40mg Take 1 [facility] 40 mg 4-29 tablet by [facility] tablet 00:00: mouth [place] 00 daily. [facility] citalopram 0 Yes [id number] 40mg Take 1 [facility] 40 mg 4-29 tablet by [facility] tablet 00:00: mouth [place] 00 daily. [facility] citalopram 0 Yes [id number] 40mg Take 1 [facility] 40 mg 4-29 tablet by [facility] tablet 00:00: mouth [place] 00 daily. [facility] citalopram 0 Yes [id number] 40mg Take 1 [facility] 40 mg 4-29 tablet by [facility] tablet 00:00: mouth [place] 00 daily. [facility] citalopram 0 Yes [id number] 40mg Take 1 [facility] 40 mg 4-29 tablet by [facility] tablet 00:00: mouth [place] 00 daily. [facility] citalopram Yes [id number] 40mg Take 1 [facility] 40 mg 4-29 tablet by [facility] tablet 00:00: mouth [place] 00 daily. [facility] citalopram 0 Yes [id number] 40mg Take 1 [facility] 40 mg 4-29 tablet by [facility] tablet 00:00: mouth [place] 00 daily. [facility] citalopram Yes [id number] 40mg Take 1 [facility] 40 mg 4-29 tablet by [facility] tablet 00:00: mouth [place] 00 daily. [facility] citalopram Yes [id number] 40mg Take 1 [facility] 40 mg 4-29 tablet by [facility] tablet 00:00: mouth [place] 00 daily. [facility] citalopram 0 Yes [id number] 40mg Take 1 [facility] 40 mg 4-29 tablet by [facility] tablet 00:00: mouth [place] 00 daily. [facility] pregabalin 0 Yes [id number] 150mg Take 1 [facility] 150 mg 4-29 capsule by [facility] capsule 00:00: mouth 3 [place] 00 (three) Medical times [facility] daily. busPIRone 0 Yes [id number] 20mg Take 2 [facility] 10 mg 4-29 tablets by [facility] tablet 00:00: mouth 2 [place] 00 (two) Medical times [facility] daily. citalopram 0 Yes [id number] 40mg Take 1 [facility] 40 mg 4-29 tablet by [facility] tablet 00:00: mouth [place] 00 daily. [facility] pregabalin 2021-0 Yes [id number] 150mg Take 1 [facility] 150 mg 4-29 capsule by [facility] capsule 00:00: mouth (three) [facility] times [facility] daily. busPIRone 2021-0 Yes [id number] 20mg Take 2 [facility] 10 mg 4-29 tablets by [facility] tablet 00:00: mouth (two) [facility] times [facility] daily. citalopram 2021-0 Yes [id number] 40mg Take 1 [facility] 40 mg 4-29 tablet by [facility] tablet 00:00: mouth 00 daily. [facility] pregabalin 2021-0 Yes [id number] 150mg Take 1 [facility] 150 mg 4-29 capsule by [facility] capsule 00:00: mouth (three) [facility] times [facility] daily. busPIRone 2021-0 Yes [id number] 20mg Take 2 [facility] 10 mg 4-29 tablets by [facility] tablet 00:00: mouth (two) [facility] times [facility] daily. citalopram 2021-0 Yes [id number] 40mg Take 1 [facility] 40 mg 4-29 tablet by [facility] tablet 00:00: mouth daily. [facility] pregabalin 2021-0 Yes [id number] 150mg Take 1 [facility] 150 mg 4-29 capsule by [facility] capsule 00:00: mouth (three) [facility] times [facility] daily. busPIRone 2021-0 Yes [id number] 20mg Take 2 [facility] 10 mg 4-29 tablets by [facility] tablet 00:00: mouth (two) [facility] times [facility] daily. citalopram 2021-0 Yes [id number] 40mg Take 1 [facility] 40 mg 4-29 tablet by [facility] tablet 00:00: mouth daily. [facility] pregabalin 2021-0 Yes [id number] 150mg Take 1 [facility] 150 mg 4-29 capsule by [facility] capsule 00:00: mouth (three) [facility] times [facility] daily. busPIRone 2-0 Yes [id number] 20mg Take 2 [facility] 10 mg 4-29 tablets by [facility] tablet 00:00: mouth (two) [facility] times [facility] daily. citalopram 2021-0 Yes [id number] 40mg Take 1 [facility] 40 mg 4-29 tablet by [facility] tablet 00:00: mouth 00 daily. [facility] pregabalin 2021-0 Yes [id number] 150mg Take 1 [facility] 150 mg 4-29 capsule by [facility] capsule 00:00: mouth 3 (three) [facility] times [facility] daily. busPIRone 2021-0 Yes [id number] 20mg Take 2 [facility] 10 mg 4-29 tablets by [facility] tablet 00:00: mouth 2 (two) Medical times [facility] daily. citalopram 2021-0 Yes [id number] 40mg Take 1 [facility] 40 mg 4-29 tablet by [facility] tablet 00:00: mouth 00 daily. [facility] pregabalin 2021-0 Yes [id number] 150mg Take 1 [facility] 150 mg 4-29 capsule by [facility] capsule 00:00: mouth 3 (three) [facility] times [facility] daily. busPIRone 2021-0 Yes [id number] 20mg Take 2 [facility] 10 mg 4-29 tablets by [facility] tablet 00:00: mouth (two) [facility] times [facility] daily. citalopram 2021-0 Yes [id number] 40mg Take 1 [facility] 40 mg 4-29 tablet by [facility] tablet 00:00: mouth 00 daily. [facility] pregabalin 2021-0 Yes [id number] 150mg Take 1 [facility] 150 mg 4-29 capsule by [facility] capsule 00:00: mouth 3 (three) [facility] times [facility] daily. busPIRone 2021-0 Yes [id number] 20mg Take 2 [facility] 10 mg 4-29 tablets by [facility] tablet 00:00: mouth (two) [facility] times [facility] daily. citalopram 2021-0 Yes [id number] 40mg Take 1 [facility] 40 mg 4-29 tablet by [facility] tablet 00:00: mouth 00 daily. [facility] pregabalin 2021-0 Yes [id number] 150mg Take 1 [facility] 150 mg 4-29 capsule by [facility] capsule 00:00: mouth 3 (three) [facility] times [facility] daily. busPIRone 2021-0 Yes [id number] 20mg Take 2 [facility] 10 mg 4-29 tablets by [facility] tablet 00:00: mouth 2 (two) Medical times [facility] daily. citalopram 2021-0 Yes [id number] 40mg Take 1 [facility] 40 mg 4-29 tablet by [facility] tablet 00:00: mouth 00 daily. [facility] pregabalin 0 Yes [id number] 150mg Take 1 [facility] 150 mg 4-29 capsule by [facility] capsule 00:00: mouth 3 00 (three) Medical times [facility] daily. busPIRone 0 Yes [id number] 20mg Take 2 [facility] 10 mg 4-29 tablets by [facility] tablet 00:00: mouth 2 (two) Medical times [facility] daily. citalopram Yes [id number] 40mg Take 1 [facility] 40 mg 4-29 tablet by [facility] tablet 00:00: mouth 00 daily. [facility] pregabalin Yes [id number] 150mg Take 1 [facility] 150 mg 4-29 capsule by [facility] capsule 00:00: mouth 3 (three) Medical times [facility] daily. busPIRone 0 Yes [id number] 20mg Take 2 [facility] 10 mg 4-29 tablets by [facility] tablet 00:00: mouth 2 (two) Medical times [facility] daily. citalopram 0 Yes [id number] 40mg Take 1 [facility] 40 mg 4-29 tablet by [facility] tablet 00:00: mouth 00 daily. [facility] pregabalin 0 2021- No [id number] 150mg Take 1 [facility] 150 mg 4-29 10-13 capsule by [facility] capsule 00:00: 00:00 mouth 3 [place] 00 :00 (three) Medical times [facility] daily. busPIRone 2021-0 2021- No [id number] 20mg Take 2 [facility] 10 mg 4-29 10-13 tablets by [facility] tablet 00:00: 00:00 mouth 2 [place] 00 :00 (two) Medical times [facility] daily. pantoprazol 2021-0 Yes [id number] 40mg Take 1 [facility] e 40 mg EC 4-04 tablet by [facility] tablet 00:00: mouth 00 daily. [facility] pantoprazol 2022-0 Yes [id number] 40mg Take 1 [facility] e 40 mg EC 4-04 tablet by [facility] of tablet 00:00: mouth [place] 00 daily. [facility] pantoprazol 2021-0 Yes [id number] 40mg Take 1 [facility] e 40 mg EC 4-04 tablet by [facility] of tablet 00:00: mouth [place] 00 daily. [facility] pantoprazol 0 Yes [id number] 40mg Take 1 [facility] e 40 mg EC 4-04 tablet by [facility] of tablet 00:00: mouth [place] 00 daily. [facility] pantoprazol Yes [id number] 40mg Take 1 [facility] e 40 mg EC 4-04 tablet by [facility] of tablet 00:00: mouth [place] 00 daily. [facility] pantoprazol Yes [id number] 40mg Take 1 [facility] e 40 mg EC 4-04 tablet by [facility] of tablet 00:00: mouth [place] 00 daily. [facility] pantoprazol Yes [id number] 40mg Take 1 [facility] e 40 mg EC 4-04 tablet by [facility] of tablet 00:00: mouth [place] 00 daily. [facility] pantoprazol Yes [id number] 40mg Take 1 [facility] e 40 mg EC 4-04 tablet by [facility] of tablet 00:00: mouth [place] 00 daily. [facility] pantoprazol Yes [id number] 40mg Take 1 [facility] e 40 mg EC 4-04 tablet by [facility] of tablet 00:00: mouth [place] 00 daily. [facility] pantoprazol 2021- Yes [id number] 40mg Take 1 [facility] e 40 mg EC 4-04 tablet by [facility] of tablet 00:00: mouth [place] 00 daily. [facility] pantoprazol 2021-0 Yes [id number] 40mg Take 1 [facility] e 40 mg EC 4-04 tablet by [facility] of tablet 00:00: mouth [place] 00 daily. [facility] pantoprazol 2021-0 Yes [id number] 40mg Take 1 [facility] e 40 mg EC 4-04 tablet by [facility] tablet 00:00: mouth [place] 00 daily. [facility] pantoprazol 0 Yes [id number] 40mg Take 1 [facility] e 40 mg EC 4-04 tablet by [facility] of tablet 00:00: mouth [place] 00 daily. [facility] pantoprazol 2021-0 Yes [id number] 40mg Take 1 [facility] e 40 mg EC 4-04 tablet by [facility] of tablet 00:00: mouth [place] 00 daily. [facility] pantoprazol 2021-0 Yes [id number] 40mg Take 1 [facility] e 40 mg EC 4-04 tablet by [facility] of tablet 00:00: mouth [place] 00 daily. [facility] pantoprazol Yes [id number] 40mg Take 1 [facility] e 40 mg EC 4-04 tablet by [facility] of tablet 00:00: mouth [place] 00 daily. [facility] pantoprazol Yes [id number] 40mg Take 1 [facility] e 40 mg EC 4-04 tablet by [facility] of tablet 00:00: mouth [place] 00 daily. [facility] pantoprazol Yes [id number] 40mg Take 1 [facility] e 40 mg EC 4-04 tablet by [facility] of tablet 00:00: mouth [place] 00 daily. [facility] pantoprazol Yes [id number] 40mg Take 1 [facility] e 40 mg EC 4-04 tablet by [facility] of tablet 00:00: mouth [place] 00 daily. [facility] pantoprazol Yes [id number] 40mg Take 1 [facility] e 40 mg EC 4-04 tablet by [facility] of tablet 00:00: mouth [place] 00 daily. [facility] pantoprazol Yes [id number] 40mg Take 1 [facility] e 40 mg EC 4-04 tablet by [facility] of tablet 00:00: mouth [place] 00 daily. [facility] pantoprazol Yes [id number] 40mg Take 1 [facility] e 40 mg EC 4-04 tablet by [facility] of tablet 00:00: mouth [place] 00 daily. [facility] pantoprazol 2021-0 Yes [id number] 40mg Take 1 [facility] e 40 mg EC 4-04 tablet by [facility] of tablet 00:00: mouth [place] 00 daily. [facility] pantoprazol 2021-0 Yes [id number] 40mg Take 1 [facility] e 40 mg EC 4-04 tablet by [facility] of tablet 00:00: mouth [place] 00 daily. [facility] pantoprazol 2021-0 Yes [id number] 40mg Take 1 [facility] e 40 mg EC 4-04 tablet by [facility] of tablet 00:00: mouth [place] 00 daily. [facility] pantoprazol 2021- Yes [id number] 40mg Take 1 [facility] e 40 mg EC 4-04 tablet by [facility] of tablet 00:00: mouth [place] 00 daily. [facility] pantoprazol 2021-0 Yes [id number] 40mg Take 1 [facility] e 40 mg EC 4-04 tablet by [facility] of tablet 00:00: mouth [place] 00 daily. [facility] pantoprazol 2021-0 Yes [id number] 40mg Take 1 [facility] e 40 mg EC 4-04 tablet by [facility] of tablet 00:00: mouth [place] 00 daily. [facility] pantoprazol 2021-0 Yes [id number] 40mg Take 1 [facility] e 40 mg EC 4-04 tablet by [facility] of tablet 00:00: mouth [place] 00 daily. [facility] pantoprazol 2021-0 Yes [id number] 40mg Take 1 [facility] e 40 mg EC 4-04 tablet by [facility] of tablet 00:00: mouth [place] 00 daily. [facility] pantoprazol 2021-0 2- No [id number] 40mg Take 1 [facility] e 40 mg EC 4-04 09-16 tablet by [facility] of tablet 00:00: 00:00 mouth [place] 00 :00 daily. [facility] pantoprazol 2021-0 2- No [id number] 40mg Take 1 [facility] e 40 mg EC 4-04 09-16 tablet by [facility] of tablet 00:00: 00:00 mouth [place] 00 :00 daily. [facility] Blood-Gluco 2021-0 Yes [id number] Use twice [facility] se Meter 3-08 a day for [facility] of (ONETOUCH 00:00: ICD CODE [place] VERIO FLEX E11.65 Medical START) Kit [facility] Blood-Gluco 2021-0 Yes [id number] Use twice [facility] se Meter 3-08 a day for [facility] of (ONETOUCH 00:00: ICD CODE [place] VERIO FLEX E11.65 Medical START) Kit [facility] Blood-Gluco 2021-0 Yes [id number] Use twice [facility] se Meter 3-08 a day for [facility] of (ONETOUCH 00:00: ICD CODE [place] VERIO FLEX E11.65 Medical START) Kit [facility] Blood-Gluco 2021-0 Yes [id number] Use twice [facility] se Meter 3-08 a day for [facility] of (ONETOUCH 00:00: ICD CODE [place] VERIO FLEX E11.65 Medical START) Kit [facility] Blood-Gluco 2021-0 Yes [id number] Use twice [facility] se Meter 3-08 a day for [facility] of (ONETOUCH 00:00: ICD CODE [place] VERIO FLEX [facility] START) Kit [facility] Blood-Gluco 2022-0 Yes [id number] Use twice [facility] se M[facility] 3-08 a day for [facility] of (ONETOUCH 00:00: ICD CODE [place] VERIO FLEX [facility] START) Kit [facility] Blood-Gluco 2022-0 Yes [id number] Use twice [facility] se M[facility] 3-08 a day for [facility] of (ONETOUCH 00:00: ICD CODE [place] VERIO FLEX [facility] START) Kit [facility] Blood-Gluco 2022-0 Yes [id number] Use twice [facility] se M[facility] 3-08 a day for [facility] of (ONETOUCH 00:00: ICD CODE [place] VERIO FLEX Medical START) Kit [facility] Blood-Gluco 2022-0 Yes [id number] Use twice [facility] se M[facility] 3-08 a day for [facility] of (ONETOUCH 00:00: ICD CODE [place] VERIO FLEX Medical START) Kit [facility] Blood-Gluco 2022-0 Yes [id number] Use twice [facility] se M[facility] 3-08 a day for [facility] of (ONETOUCH 00:00: ICD CODE [place] VERIO FLEX [facility] START) Kit [facility] Blood-Gluco 2022-0 Yes [id number] Use twice [facility] se M[facility] 3-08 a day for [facility]y of (ONETOUCH 00:00: ICD CODE [place] VERIO FLEX [facility] START) Kit [facility] Blood-Gluco 2022-0 Yes [id number] Use twice [facility] se M[facility] 3-08 a day for [facility] of (ONETOUCH 00:00: ICD CODE [place] VERIO FLEX E11 Medical START) Kit [facility] Blood-Gluco 2022-0 Yes [id number] Use twice [facility] M[facility] 3-08 a day for [facility] of (ONETOUCH 00:00: ICD CODE [place] VERIO FLEX E11 Medical START) Kit [facility] Blood-Gluco 2022-0 Yes [id number] Use twice [facility] 3-08 a day for [facility] of (ONETOUCH 00:00: ICD CODE [place] VERIO FLEX [facility] START) Kit [facility] Blood-Gluco 2022-0 Yes [id number] Use twice [facility] se [facility] 3-08 a day for [facility] of (ONETOUCH 00:00: ICD CODE [place] VERIO FLEX Medical START) Kit [facility] Blood-Gluco 2022-0 Yes [id number] Use twice [facility] se M[facility] 3-08 a day for [facility] of (ONETOUCH 00:00: ICD CODE [place] VERIO FLEX [facility] START) Kit [facility] Blood-Gluco 2022-0 Yes [id number] Use twice [facility] 3-08 a day for [facility] of (ONETOUCH 00:00: ICD CODE [place] VERIO FLEX Medical START) Kit [facility] Blood-Gluco 2022-0 Yes [id number] Use twice [facility] 3-08 a day for [facility]y of (ONETOUCH 00:00: ICD CODE [place] VERIO FLEX Medical START) Kit [facility] Blood-Gluco 2022-0 Yes [id number] Use twice [facility] 3-08 a day for [facility] of (ONETOUCH 00:00: ICD CODE [place] VERIO FLEX [facility] START) Kit [facility] Blood-Gluco 2022-0 Yes [id number] Use twice [facility] 3-08 a day for [facility] of (ONETOUCH 00:00: ICD CODE [place] VERIO FLEX [facility] START) Kit [facility] Blood-Gluco 2022-0 Yes [id number] Use twice [facility] 3-08 a day for [facility] of (ONETOUCH 00:00: ICD CODE [place] VERIO FLEX [facility] START) Kit [facility] Blood-Gluco 2022-0 Yes [id number] Use twice [facility] 3-08 a day for [facility] of (ONETOUCH 00:00: ICD CODE [place] VERIO FLEX [facility] START) Kit [facility] Blood-Gluco 2022-0 Yes [id number] Use twice [facility] 3-08 a day for [facility] of (ONETOUCH 00:00: ICD CODE [place] VERIO FLEX [facility] START) Kit [facility] Blood-Gluco 2022-0 Yes [id number] Use twice [facility] 3-08 a day for [facility] of (ONETOUCH 00:00: ICD CODE [place] VERIO FLEX [facility] START) Kit [facility] Blood-Gluco 2022-0 Yes [id number] Use twice [facility] 3-08 a day for [facility] of (ONETOUCH 00:00: ICD CODE [place] VERIO FLEX [facility] START) Kit [facility] Blood-Gluco 2022-0 Yes [id number] Use twice [facility] 3-08 a day for [facility] of (ONETOUCH 00:00: ICD CODE [place] VERIO FLEX [facility] START) Kit [facility] Blood-Gluco 2022-0 Yes [id number] Use twice [facility] 3-08 a day for [facility] of (ONETOUCH 00:00: ICD CODE [place] VERIO FLEX [facility] START) Kit [facility] Blood-Gluco 2022-0 Yes [id number] Use twice [facility] 3-08 a day for ity of (ONETOUCH 00:00: [place] VER[place] FLEX Medical START[place] Kit Branch Blood-Gluco 2022-0 Yes [id number] Use twice [facility] se Meter 3-08 a day for ity of (ONETOUCH 00:00: [place] VER[place] FLEX Medical START) Kit Branch Blood-Gluco 2022-0 Yes [id number] Use twice [facility] se Meter 3-08 a day for ity of (ONETOUCH 00:00: [place] VERIO FLEX Medical START) Kit Branch Blood-Gluco 2022-0 Yes [id number] Use twice [facility] se Meter 3-08 a day for ity of (ONETOUCH 00:00: [place] VERIO FLEX Medical START) Kit Branch Blood-Gluco 2022-0 Yes [id number] Use twice [facility] se Meter 3-08 a day for ity of (ONETOUCH 00:00: [place] VERIO FLEX Medical START) Kit Branch Blood-Gluco 2022-0 Yes [id number] Use twice [facility] se Meter 3-08 a day for ity of (ONETOUCH 00:00: [place] VERIO FLEX 00 E11.65 Medical START) Kit Branch Blood-Gluco Yes [id number] Use twice [facility] se Meter 3-08 a day for ity of (ONETOUCH 00:00: [place] VERIO FLEX 00 E11.65 Medical START) [facility] Blood-Gluco 0 Yes [id number] Use twice [facility] se M[place] 3-08 a day for ity of (ONETOUCH 00:00: [place] VERIO FLEX E11.65 Medical START) [facility] Blood-Gluco 0 Yes [id number] Use twice [facility] se M[place] 3-08 a day for ity of (ONETOUCH 00:00: [place] VERIO FLEX E11.65 Medical START) [facility] Blood-Gluco 2021- No [id number] Use twice [facility] se Meter 3-08 -22 a day for ity o f (ONETOUCH 00:00: 00:00 ICD CODE [place] VERIO FLEX 00 :00 E11.65 Medical START) [facility] Blood-Gluco 2021- No [id number] Use twice [facility] se Meter 3-08 -22 a day for ity o f (ONETOUCH 00:00: 00:00 ICD CODE [place] VERIO FLEX 00 :00 E11.65 Medical START) [facility] Blood-Gluco 2021- No [id number] Use twice [facility] se Meter 3-08 -22 a day for ity o f (ONETOUCH 00:00: 00:00 ICD CODE [place] VERIO FLEX 00 :00 E11.65 Medical START) [facility] mirabegron Yes [id number] 50mg Take 1 Univers (MYRBETRIQ) 1-18 tablet by ity of 50 mg 00:00: mouth [place] tablet 00 daily. [facility] mirabegron Yes [id number] 50mg Take 1 Univers (MYRBETRIQ) 1-18 tablet by ity of 50 mg 00:00: mouth [place] tablet 00 daily. [facility] mirabegron Yes [id number] 50mg Take 1 Univers (MYRBETRIQ) 1-18 tablet by ity of 50 mg 00:00: mouth [place] tablet 00 daily. [facility] mirabegron Yes [id number] 50mg Take 1 Univers (MYRBETRIQ) 1-18 tablet by ity of 50 mg 00:00: mouth [place] tablet 00 daily. [facility] mirabegron 2021-0 Yes [id number] 50mg Take 1 Univers (MYRBETRIQ) 1-18 tablet by ity of 50 mg 00:00: mouth [place] tablet 00 daily. [facility] mirabegron 0 Yes [id number] 50mg Take 1 Univers (MYRBETRIQ) 1-18 tablet by ity of 50 mg 00:00: mouth [place] tablet 00 daily. [facility] mirabegron 0 Yes [id number] 50mg Take 1 Univers (MYRBETRIQ) 1-18 tablet by ity of 50 mg 00:00: mouth [place] tablet 00 daily. [facility] mirabegron 0 Yes [id number] 50mg Take 1 Univers (MYRBETRIQ) 1-18 tablet by ity of 50 mg 00:00: mouth [place] tablet 00 daily. [facility] mirabegron 0 Yes [id number] 50mg Take 1 Univers (MYRBETRIQ) 1-18 tablet by ity of 50 mg 00:00: mouth [place] tablet 00 daily. [facility] mirabegron 0 Yes [id number] 50mg Take 1 Univers (MYRBETRIQ) 1-18 tablet by ity of 50 mg 00:00: mouth [place] tablet 00 daily. [facility] mirabegron 0 Yes [id number] 50mg Take 1 Univers (MYRBETRIQ) 1-18 tablet by ity of 50 mg 00:00: mouth [place] tablet 00 daily. [facility] mirabegron 0 Yes [id number] 50mg Take 1 Univers (MYRBETRIQ) 1-18 tablet by ity of 50 mg 00:00: mouth [place] tablet 00 daily. [facility] mirabegron 0 Yes [id number] 50mg Take 1 Univers (MYRBETRIQ) 1-18 tablet by ity of 50 mg 00:00: mouth [place] tablet 00 daily. [facility] mirabegron 0 Yes [id number] 50mg Take 1 Univers (MYRBETRIQ) 1-18 tablet by ity of 50 mg 00:00: mouth [place] tablet 00 daily. [facility] mirabegron 0 Yes [id number] 50mg Take 1 Univers (MYRBETRIQ) 1-18 tablet by ity of 50 mg 00:00: mouth [place] tablet 00 daily. [facility] mirabegron 0 Yes [id number] 50mg Take 1 Univers (MYRBETRIQ) 1-18 tablet by ity of 50 mg 00:00: mouth [place] tablet 00 daily. [facility] mirabegron 0 Yes [id number] 50mg Take 1 Univers (MYRBETRIQ) 1-18 tablet by ity of 50 mg 00:00: mouth [place] tablet 00 daily. [facility] mirabegron 0 Yes [id number] 50mg Take 1 Univers (MYRBETRIQ) 1-18 tablet by ity of 50 mg 00:00: mouth [place] tablet 00 daily. [facility] mirabegron 0 Yes [id number] 50mg Take 1 Univers (MYRBETRIQ) 1-18 tablet by ity of 50 mg 00:00: mouth [place] tablet 00 daily. [facility] mirabegron 0 Yes [id number] 50mg Take 1 Univers (MYRBETRIQ) 1-18 tablet by ity of 50 mg 00:00: mouth [place] tablet 00 daily. [facility] mirabegron 0 Yes [id number] 50mg Take 1 Univers (MYRBETRIQ) 1-18 tablet by ity of 50 mg 00:00: mouth [place] tablet 00 daily. [facility] mirabegron Yes [id number] 50mg Take 1 Univers (MYRBETRIQ) 1-18 tablet by ity of 50 mg 00:00: mouth [place] tablet 00 daily. [facility] mirabegron 0 Yes [id number] 50mg Take 1 Univers (MYRBETRIQ) 1-18 tablet by ity of 50 mg 00:00: mouth [place] tablet 00 daily. [facility] mirabegron 0 Yes [id number] 50mg Take 1 Univers (MYRBETRIQ) 1-18 tablet by ity of 50 mg 00:00: mouth [place] tablet 00 daily. [facility] mirabegron 0 Yes [id number] 50mg Take 1 Univers (MYRBETRIQ) 1-18 tablet by ity of 50 mg 00:00: mouth [place] tablet 00 daily. [facility] mirabegron Yes [id number] 50mg Take 1 Univers (MYRBETRIQ) 1-18 tablet by ity of 50 mg 00:00: mouth [place] tablet 00 daily. [facility] mirabegron 0 Yes [id number] 50mg Take 1 Univers (MYRBETRIQ) 1-18 tablet by ity of 50 mg 00:00: mouth [place] tablet 00 daily. [facility] mirabegron 0 Yes [id number] 50mg Take 1 Univers (MYRBETRIQ) 1-18 tablet by ity of 50 mg 00:00: mouth [place] tablet 00 daily. [facility] mirabegron 0 Yes [id number] 50mg Take 1 Univers (MYRBETRIQ) 1-18 tablet by ity of 50 mg 00:00: mouth [place] tablet 00 daily. [facility] mirabegron 0 Yes [id number] 50mg Take 1 Univers (MYRBETRIQ) 1-18 tablet by ity of 50 mg 00:00: mouth [place] tablet 00 daily. [facility] mirabegron 0 Yes [id number] 50mg Take 1 Univers (MYRBETRIQ) 1-18 tablet by ity of 50 mg 00:00: mouth [place] tablet 00 daily. [facility] mirabegron 0 Yes [id number] 50mg Take 1 Univers (MYRBETRIQ) 1-18 tablet by ity of 50 mg 00:00: mouth [place] tablet 00 daily. [facility] mirabegron 0 Yes [id number] 50mg Take 1 Univers (MYRBETRIQ) 1-18 tablet by ity of 50 mg 00:00: mouth [place] tablet 00 daily. [facility] mirabegron 0 Yes [id number] 50mg Take 1 Univers (MYRBETRIQ) 1-18 tablet by ity of 50 mg 00:00: mouth [place] tablet 00 daily. [facility] mirabegron 0 Yes [id number] 50mg Take 1 Univers (MYRBETRIQ) 1-18 tablet by ity of 50 mg 00:00: mouth [place] tablet 00 daily. [facility] mirabegron 2021-0 Yes [id number] 50mg Take 1 Univers (MYRBETRIQ) 1-18 tablet by ity of 50 mg 00:00: mouth [place] tablet 00 daily. [facility] mirabegron 0 Yes [id number] 50mg Take 1 Univers (MYRBETRIQ) 1-18 tablet by ity of 50 mg 00:00: mouth [place] tablet 00 daily. [facility] mirabegron 0 Yes [id number] 50mg Take 1 Univers (MYRBETRIQ) 1-18 tablet by ity of 50 mg 00:00: mouth [place] tablet 00 daily. [facility] mirabegron 0 Yes [id number] 50mg Take 1 Univers (MYRBETRIQ) 1-18 tablet by ity of 50 mg 00:00: mouth [place] tablet 00 daily. [facility] mirabegron 0 Yes [id number] 50mg Take 1 Univers (MYRBETRIQ) 1-18 tablet by ity of 50 mg 00:00: mouth [place] tablet 00 daily. [facility] mirabegron 0 Yes [id number] 50mg Take 1 Univers (MYRBETRIQ) 1-18 tablet by ity of 50 mg 00:00: mouth [place] tablet 00 daily. [facility] mirabegron 0 Yes [id number] 50mg Take 1 Univers (MYRBETRIQ) 1-18 tablet by ity of 50 mg 00:00: mouth [place] tablet 00 daily. [facility] mirabegron 0 Yes [id number] 50mg Take 1 Univers (MYRBETRIQ) 1-18 tablet by ity of 50 mg 00:00: mouth [place] tablet 00 daily. [facility] mirabegron 0 Yes [id number] 50mg Take 1 Univers (MYRBETRIQ) 1-18 tablet by ity of 50 mg 00:00: mouth [place] tablet 00 daily. [facility] mirabegron 0 Yes [id number] 50mg Take 1 Univers (MYRBETRIQ) 1-18 tablet by ity of 50 mg 00:00: mouth [place] tablet 00 daily. [facility] mirabegron 0 Yes [id number] 50mg Take 1 Univers (MYRBETRIQ) 1-18 tablet by ity of 50 mg 00:00: mouth [place] tablet 00 daily. [facility] mirabegron 0 Yes [id number] 50mg Take 1 Univers (MYRBETRIQ) 1-18 tablet by ity of 50 mg 00:00: mouth [place] tablet 00 daily. [facility] Branch mirabegron 0 Yes [id number] 50mg Take 1 Univers (MYRBETRIQ) 1-18 tablet by ity of 50 mg 00:00: mouth [place] tablet 00 daily. [facility] mirabegron 2021- No [id number] 50mg Take 1 Univers (MYRBETRIQ) 1-18 10-13 tablet by it y of 50 mg 00:00: 00:00 mouth [place] tablet 00 :00 daily. [facility] semaglutide 2020-09 Yes [id number] Inject Univers (OZEMPIC) 2-01 0.25 mg ity of 0.25 mg or 00:00: under the [place] 0.5 mg(2 00 skin Medical mg/1.5 mL) weekly. [facility] semaglutide 2020-09 Yes [id number] Inject Univers (OZEMPIC) 2-01 0.25 mg ity of 0.25 mg or 00:00: under the [place] 0.5 mg(2 00 skin Medical mg/1.5 mL) weekly. Branch [facility] semaglutide 2020-09 Yes [id number] Inject Univers (OZEMPIC) 2-01 0.25 mg ity of 0.25 mg or 00:00: under the [place] 0.5 mg(2 00 skin Medical mg/1.5 mL) [facility] [id number] Inject Univers (OZEMPIC) 2-01 0.25 mg ity of 0.25 mg or 00:00: under the [place] 0.5 mg(2 00 skin Medical mg/1.5 mL) weekly. Branch Ij semaglutide 2020-09 Yes [id number] Inject Univers (OZEMPIC) 2-01 0.25 mg ity of 0.25 mg or 00:00: under the [place] 0.5 mg(2 00 skin Medical mg/1.5 mL) [facility]. [facility] Yes [id number] Inject Univers (OZEMPIC) 2-01 0.25 mg ity of 0.25 mg or 00:00: under the [place] 0.5 mg(2 00 skin Medical mg/1.5 mL) weekly. [facility] Yes [id number] Inject Univers (OZEMPIC) 2-01 0.25 mg ity of 0.25 mg or 00:00: under the [place] 0.5 mg(2 00 skin Medical mg/1.5 mL) weekly. Branch PnIj semaglutide 2020-09 Yes [id number] Inject Univers (OZEMPIC) 2-01 0.25 mg ity of 0.25 mg or 00:00: under the [place] 0.5 mg(2 00 skin Medical mg/1.5 mL) weekly. Branch PnIj semaglutide 2020-09 Yes [id number] Inject Univers (OZEMPIC) 2-01 0.25 mg ity of 0.25 mg or 00:00: under the [place] 0.5 mg(2 00 skin Medical mg/1.5 mL) weekly. Branch PnIj semaglutide 2020-09 Yes [id number] Inject Univers (OZEMPIC) 2-01 0.25 mg ity of 0.25 mg or 00:00: under the [place] 0.5 mg(2 00 skin Medical mg/1.5 mL) weekly. Branch PnIj semaglutide 2020-09 Yes [id number] Inject Univers (OZEMPIC) 2-01 0.25 mg ity of 0.25 mg or 00:00: under the [place] 0.5 mg(2 00 skin Medical mg/1.5 mL) weekly. Branch PnIj semaglutide 2020-09 Yes [id number] Inject Univers (OZEMPIC) 2-01 0.25 mg ity of 0.25 mg or 00:00: under the [place] 0.5 mg(2 00 skin Medical mg/1.5 mL) weekly. Branch PnIj semaglutide 2020-09 Yes [id number] Inject Univers (OZEMPIC) 2-01 0.25 mg ity of 0.25 mg or 00:00: under the [place] 0.5 mg(2 00 skin Medical mg/1.5 mL) weekly. Branch PnIj semaglutide 2020-09 Yes [id number] Inject Univers (OZEMPIC) 2-01 0.25 mg ity of 0.25 mg or 00:00: under the [place] 0.5 mg(2 00 skin Medical mg/1.5 mL) weekly. Branch PnIj semaglutide 2020-09 Yes [id number] Inject Univers (OZEMPIC) 2-01 0.25 mg ity of 0.25 mg or 00:00: under the [place] 0.5 mg(2 00 skin Medical mg/1.5 mL) weekly. Branch PnIj semaglutide 2020-09 Yes [id number] Inject Univers (OZEMPIC) 2-01 0.25 mg ity of 0.25 mg or 00:00: under the [place] 0.5 mg(2 00 skin Medical mg/1.5 mL) weekly. Branch PnIj semaglutide 2020-09 Yes [id number] Inject Univers (OZEMPIC) 2-01 0.25 mg ity of 0.25 mg or 00:00: under the [place] 0.5 mg(2 00 skin Medical mg/1.5 mL) weekly. Branch PnIj semaglutide 2020-09 Yes [id number] Inject Univers (OZEMPIC) 2-01 0.25 mg ity of 0.25 mg or 00:00: under the [place] 0.5 mg(2 00 skin Medical mg/1.5 mL) weekly. Branch PnIj semaglutide 2020-09 Yes [id number] Inject Univers (OZEMPIC) 2-01 0.25 mg ity of 0.25 mg or 00:00: under the [place] 0.5 mg(2 00 skin Medical mg/1.5 mL) weekly. Branch PnIj semaglutide 2020-09 Yes [id number] Inject Univers (OZEMPIC) 2-01 0.25 mg ity of 0.25 mg or 00:00: under the [place] 0.5 mg(2 00 skin Medical mg/1.5 mL) weekly. Branch PnIj semaglutide 2020-09 Yes [id number] Inject Univers (OZEMPIC) 2-01 0.25 mg ity of 0.25 mg or 00:00: under the [place] 0.5 mg(2 00 skin Medical mg/1.5 mL) weekly. Branch PnIj semaglutide 2020-09 Yes [id number] Inject Univers (OZEMPIC) 2-01 0.25 mg ity of 0.25 mg or 00:00: under the [place] 0.5 mg(2 00 skin Medical mg/1.5 mL) weekly. Branch PnIj semaglutide 2020-09 Yes [id number] Inject Univers (OZEMPIC) 2-01 0.25 mg ity of 0.25 mg or 00:00: under the [place] 0.5 mg(2 00 skin Medical mg/1.5 mL) weekly. Branch PnIj semaglutide 2020-09 Yes [id number] Inject Univers (OZEMPIC) 2-01 0.25 mg ity of 0.25 mg or 00:00: under the [place] 0.5 mg(2 00 skin Medical mg/1.5 mL) weekly. Branch PnIj semaglutide 2020-09 Yes [id number] Inject Univers (OZEMPIC) 2-01 0.25 mg ity of 0.25 mg or 00:00: under the [place] 0.5 mg(2 00 skin Medical mg/1.5 mL) weekly. Branch PnIj semaglutide 2020-09 Yes [id number] Inject Univers (OZEMPIC) 2-01 0.25 mg ity of 0.25 mg or 00:00: under the [place] 0.5 mg(2 00 skin Medical mg/1.5 mL) weekly. Branch PnIj semaglutide 2020-09 Yes [id number] Inject Univers (OZEMPIC) 2-01 0.25 mg ity of 0.25 mg or 00:00: under the [place] 0.5 mg(2 00 skin Medical mg/1.5 mL) weekly. Branch PnIj semaglutide 2020-09 Yes [id number] Inject Univers (OZEMPIC) 2-01 0.25 mg ity of 0.25 mg or 00:00: under the [place] 0.5 mg(2 00 skin Medical mg/1.5 mL) weekly. Branch PnIj semaglutide 2020-09 Yes [id number] Inject Univers (OZEMPIC) 2-01 0.25 mg ity of 0.25 mg or 00:00: under the [place] 0.5 mg(2 00 skin Medical mg/1.5 mL) weekly. Branch PnIj semaglutide 2020-09 Yes [id number] Inject Univers (OZEMPIC) 2-01 0.25 mg ity of 0.25 mg or 00:00: under the [place] 0.5 mg(2 00 skin Medical mg/1.5 mL) weekly. Branch PnIj semaglutide 2020-09 Yes [id number] Inject Univers (OZEMPIC) 2-01 0.25 mg ity of 0.25 mg or 00:00: under the [place] 0.5 mg(2 00 skin Medical mg/1.5 mL) weekly. Branch PnIj semaglutide 2020-09 Yes [id number] Inject Univers (OZEMPIC) 2-01 0.25 mg ity of 0.25 mg or 00:00: under the [place] 0.5 mg(2 00 skin Medical mg/1.5 mL) weekly. Branch PnIj semaglutide 2020-09 Yes [id number] Inject Univers (OZEMPIC) 2-01 0.25 mg ity of 0.25 mg or 00:00: under the [place] 0.5 mg(2 00 skin Medical mg/1.5 mL) weekly. Branch PnIj semaglutide 2020-09 Yes [id number] Inject Univers (OZEMPIC) 2-01 0.25 mg ity of 0.25 mg or 00:00: under the [place] 0.5 mg(2 00 skin Medical mg/1.5 mL) weekly. Branch PnIj semaglutide 2020-09 Yes [id number] Inject Univers (OZEMPIC) 2-01 0.25 mg ity of 0.25 mg or 00:00: under the [place] 0.5 mg(2 00 skin Medical mg/1.5 mL) weekly. Branch PnIj semaglutide 2020-09 Yes [id number] Inject Univers (OZEMPIC) 2-01 0.25 mg ity of 0.25 mg or 00:00: under the [place] 0.5 mg(2 00 skin Medical mg/1.5 mL) weekly. Branch PnIj semaglutide 2020-09 Yes [id number] Inject Univers (OZEMPIC) 2-01 0.25 mg ity of 0.25 mg or 00:00: under the [place] 0.5 mg(2 00 skin Medical mg/1.5 mL) weekly. Branch PnIj semaglutide 2020-09 Yes [id number] Inject Univers (OZEMPIC) 2-01 0.25 mg ity of 0.25 mg or 00:00: under the [place] 0.5 mg(2 00 skin Medical mg/1.5 mL) weekly. Branch PnIj semaglutide 2020-09 Yes [id number] Inject Univers (OZEMPIC) 2-01 0.25 mg ity of 0.25 mg or 00:00: under the [place] 0.5 mg(2 00 skin Medical mg/1.5 mL) weekly. Branch PnIj semaglutide 2020-09 Yes [id number] Inject Univers (OZEMPIC) 2-01 0.25 mg ity of 0.25 mg or 00:00: under the [place] 0.5 mg(2 00 skin Medical mg/1.5 mL) weekly. Branch PnIj semaglutide 2020-09 Yes [id number] Inject Univers (OZEMPIC) 2-01 0.25 mg ity of 0.25 mg or 00:00: under the [place] 0.5 mg(2 00 skin Medical mg/1.5 mL) weekly. Branch PnIj semaglutide 2020-09 Yes [id number] Inject Univers (OZEMPIC) 2-01 0.25 mg ity of 0.25 mg or 00:00: under the [place] 0.5 mg(2 00 skin Medical mg/1.5 mL) weekly. Branch PnIj semaglutide 2020-09 Yes [id number] Inject Univers (OZEMPIC) 2-01 0.25 mg ity of 0.25 mg or 00:00: under the [place] 0.5 mg(2 00 skin Medical mg/1.5 mL) weekly. Branch PnIj semaglutide 2020-09 Yes [id number] Inject Univers (OZEMPIC) 2-01 0.25 mg ity of 0.25 mg or 00:00: under the [place] 0.5 mg(2 00 skin Medical mg/1.5 mL) weekly. Branch PnIj semaglutide 2020-09 Yes [id number] Inject Univers (OZEMPIC) 2-01 0.25 mg ity of 0.25 mg or 00:00: under the [place] 0.5 mg(2 00 skin Medical mg/1.5 mL) weekly. Branch PnIj semaglutide 2020-09 Yes [id number] Inject Univers (OZEMPIC) 2-01 0.25 mg ity of 0.25 mg or 00:00: under the [place] 0.5 mg(2 00 skin Medical mg/1.5 mL) weekly. [facility] semaglutide 2020-09 Yes [id number] Inject Univers (OZEMPIC) 2- 0.25 mg ity of 0.25 mg or 00:00: under the [place] 0.5 mg(2 00 skin Medical mg/1.5 mL) weekly. [facility] semaglutide 2020-09 Yes [id number] Inject Univers (OZEMPIC) 2- 0.25 mg ity of 0.25 mg or 00:00: under the [place] 0.5 mg(2 00 skin Medical mg/1.5 mL) weekly. [facility] semaglutide 2020-09- No [id number] Inject Univers (OZEMPIC) 2- 10-13 0.25 mg ity of 0.25 mg or 00:00: 00:00 under the [place] 0.5 mg(2 00 :00 skin Medical mg/1.5 mL) weekly. [facility] metformin 2020-09- No [id number] 500mg Take 1 Univers ER 500 mg 10-27 tablet by ity of 24 hr 00:00: 00:00 mouth [place] tablet 00 :00 daily with Medical breakfast. Branch STOP REGULAR METFORMIN. metformin 2020-09- No [id number] 500mg Take 1 Univers ER 500 mg 10-27 tablet by ity of 24 hr 00:00: 00:00 mouth [place] tablet 00 :00 daily with Medical breakfast. Branch STOP REGULAR METFORMIN. cyanocobala 2020-09 Yes [id number] 1000ug 1 mL by Univers min 1,000 1-09 Intramuscu ity of mcg/mL 00:00: lar route [place] injection 00 every 2 Medical (two) Branch weeks. levothyroxi 2020-09 Yes [id number] 50ug Take 1 Univers ne 50 mcg 1-09 tablet by ity o f tablet 00:00: mouth [place] 00 every Medical morning. Branch fluticasone 2020-09 Yes [id number] 2{puff} Inhale 2 Univers propionate 1-09 Puffs ity of (FLOVENT 00:00: every 12 [place] HFA) 110 00 (twelve) Medical mcg/actuati hours. Branch on inhaler Rinse mouth after each use. levalbutero 2020-09 Yes [id number] .63mg Inhale Univers l 0.63 mg/3 1-09 0.63 mg 3 ity of mL 00:00: (three) [place] nebulizer 00 times Medical solution daily as Branch needed for Wheezing or Shortness of Breath. losartan 50 2020-09 Yes [id number] 50mg Take 1 Univers mg tablet -09 tablet by ity o f 00:00: mouth 2 [place] 00 (two) Medical times Branch daily. clotrimazol 2020-09 Yes [id number] Apply to Univers e-betametha -09 area(s) 2 ity of sone cream 00:00: (two) [place] 00 times Medical daily. Branch cyclobenzap 2020-09 Yes [id number] TAKE 1 Univers rine 5 mg -09 TABLET BY ity o f tablet 00:00: MOUTH [place] 00 EVERY 8 Medical HOURS Branch NEEDED econazole 2020-09 Yes [id number] Apply to Univers nitrate 1 % 09 area(s) 2 ity of cream 00:00: (two) [place] 00 times Medical daily. Branch albuterol 2020-09 Yes [id number] 2{puff} Inhale 2 Univers (PROAIR 1-09 Puffs ity of HFA) 90 00:00: every 6 [place] mcg/actuati 00 (six) Medical on inhaler hours as Branc h needed for Wheezing or Shortness of Breath. triamcinolo 2020-09 Yes [id number] Apply to Univers ne 0.025 % 10-04 area(s) 3 ity of ointment 00:00: (three) [place] 00 times Medical daily. For Branch itching diltiazem 2020-09 Yes [id number] 120mg Take 1 U nivers (CARTIA XT) -09 capsule by it y of 120 mg 24 00:00: mouth 2 [place] hr capsule 00 (two) Medical times Branch daily. cyanocobala 2020-09 Yes [id number] 1000ug 1 mL by Univers min 1,000 -09 Intramuscu ity of mcg/mL 00:00: lar route [place] injection 00 every 2 Medical (two) Branch weeks. levothyroxi 2020-09 Yes [id number] 50ug Take 1 Univers ne 50 mcg 1-09 tablet by ity o f tablet 00:00: mouth [place] 00 every Medical morning. Branch fluticasone 2020-09 Yes [id number] 2{puff} Inhale 2 [facility] propionate 1-09 Puffs ity of (FLOVENT 00:00: every 12 [place] HFA) 110 00 (twelve) Medical mcg/actuati hours. Branch on inhaler Rinse mouth after each use. levalbutero 2020-09 Yes [id number] .63mg Inhale Univers l 0.63 mg/3 1-09 0.63 mg 3 ity of mL 00:00: (three) [place] nebulizer 00 times Medical solution daily as Branch needed for Wheezing or Shortness of Breath. losartan 50 2020-09 Yes [id number] 50mg Take 1 Univers mg tablet -09 tablet by ity o f 00:00: mouth 2 [place] 00 (two) Medical times Branch daily. clotrimazol 2020-09 Yes [id number] Apply to Univers e-betametha -09 area(s) 2 ity of sone cream 00:00: (two) [place] 00 times Medical daily. Branch cyclobenzap 2020-09 Yes [id number] TAKE 1 [facility] rine 5 mg -09 TABLET BY ity o f tablet 00:00: MOUTH [place] 00 EVERY 8 Medical HOURS Branch NEEDED econazole 2020-09 Yes [id number] Apply to Univers nitrate 1 % 10-04 area(s) 2 ity of cream 00:00: (two) [place] 00 times Medical daily. Branch albuterol 2020-09 Yes [id number] 2{puff} Inhale 2 Univers (PROAIR 1-09 Puffs ity of HFA) 90 00:00: every 6 [place] mcg/actuati 00 (six) Medical on inhaler hours as Branc h needed for Wheezing or Shortness of Breath. triamcinolo 2020-09 Yes [id number] Apply to Univers ne 0.025 % -09 area(s) 3 ity of ointment 00:00: (three) [place] 00 times Medical daily. For Branch itching diltiazem 2020-09 Yes [id number] 120mg Take 1 U nivers (CARTIA XT) -09 capsule by it y of 120 mg 24 00:00: mouth 2 [place] hr capsule 00 (two) Medical times Branch daily. cyanocobala 2020-09 Yes [id number] 1000ug 1 mL by Univers min 1,000 1-09 Intramuscu ity of mcg/mL 00:00: lar route [place] injection 00 every 2 Medical (two) Branch weeks. levothyroxi 2020-09 Yes [id number] 50ug Take 1 Univers ne 50 mcg 1-09 tablet by ity o f tablet 00:00: mouth [place] 00 every Medical morning. Branch fluticasone 2020-09 Yes [id number] 2{puff} Inhale 2 [facility] propionate 1-09 Puffs ity of (FLOVENT 00:00: every 12 [place] HFA) 110 00 (twelve) Medical mcg/actuati hours. Branch on inhaler Rinse mouth after each use. levalbutero 2020-09 Yes [id number] .63mg Inhale Univers l 0.63 mg/3 1-09 0.63 mg 3 ity of mL 00:00: (three) [place] nebulizer 00 times Medical solution daily as Branch needed for Wheezing or Shortness of Breath. losartan 50 2020-09 Yes [id number] 50mg Take 1 Univers mg tablet 1-09 tablet by ity o f 00:00: mouth 2 [place] 00 (two) Medical times Branch daily. clotrimazol 2020-09 Yes [id number] Apply to Univers e-betametha -09 area(s) 2 ity of sone cream 00:00: (two) [place] 00 times Medical daily. Branch cyclobenzap 2020-09 Yes [id number] TAKE 1 [facility] rine 5 mg 1-09 TABLET BY ity o f tablet 00:00: MOUTH [place] 00 EVERY 8 Medical HOURS Branch NEEDED econazole 2020-09 Yes [id number] Apply to Univers nitrate 1 % 1-09 area(s) 2 ity of cream 00:00: (two) [place] 00 times Medical daily. Branch albuterol 2020-09 Yes [id number] 2{puff} Inhale 2 [facility] (PROAIR 1-09 Puffs ity of HFA) 90 00:00: every 6 [place] mcg/actuati 00 (six) Medical on inhaler hours as Branc h needed for Wheezing or Shortness of Breath. triamcinolo 2020-09 Yes [id number] Apply to [facility] ne 0.025 % 09 area(s) 3 ity of ointment 00:00: (three) [place] 00 times Medical daily. For Branch itching diltiazem 2020-09 Yes [id number] 120mg Take 1 [facility] (CARTIA XT) 09 capsule by it y of 120 mg 24 00:00: mouth 2 [place] hr capsule 00 (two) Medical times Branch daily. cyanocobala 2020-09 Yes [id number] 1000ug 1 mL by [facility] min 1,000 -09 Intramuscu ity of mcg/mL 00:00: lar route [place] injection 00 every 2 Medical (two) Branch weeks. levothyroxi 2020-09 Yes [id number] 50ug Take 1 [facility] ne 50 mcg 10-04 tablet by ity o f tablet 00:00: mouth [place] 00 every Medical morning. Branch fluticasone 2020-09 Yes [id number] 2{puff} Inhale 2 [facility] propionate -09 Puffs ity of (FLOVENT 00:00: every 12 [place] HFA) 110 00 (twelve) Medical mcg/actuati hours. Branch on inhaler Rinse mouth after each use. levalbutero 2020-09 Yes [id number] .63mg Inhale [facility] l 0.63 mg/3 -09 0.63 mg 3 ity of mL 00:00: (three) [place] nebulizer 00 times Medical solution daily as Branch needed for Wheezing or Shortness of Breath. losartan 50 2020-09 Yes [id number] 50mg Take 1 [facility] mg tablet 09 tablet by ity o f 00:00: mouth 2 [place] 00 (two) Medical times Branch daily. clotrimazol 2020-09 Yes [id number] Apply to [facility] e-betametha 09 area(s) 2 ity of sone cream 00:00: (two) [place] 00 times Medical daily. Branch cyclobenzap 2020-09 Yes [id number] TAKE 1 [facility] rine 5 mg -09 TABLET BY ity o f tablet 00:00: MOUTH [place] 00 EVERY 8 Medical HOURS Branch NEEDED econazole 2020-09 Yes [id number] Apply to [facility] nitrate 1 % 10-04 area(s) 2 ity of cream 00:00: (two) [place] 00 times Medical daily. Branch albuterol 2020-09 Yes [id number] 2{puff} Inhale 2 [facility] (PROAIR 1-09 Puffs ity of HFA) 90 00:00: every 6 [place] mcg/actuati 00 (six) Medical on inhaler hours as Branc h needed for Wheezing or Shortness of Breath. triamcinolo 2020-09 Yes [id number] Apply to [facility] ne 0.025 % 1-09 area(s) 3 ity of ointment 00:00: (three) [place] 00 times Medical daily. For Branch itching diltiazem 2020-09 Yes [id number] 120mg Take 1 [facility] (CARTIA XT) -09 capsule by it y of 120 mg 24 00:00: mouth 2 [place] hr capsule 00 (two) Medical times Branch daily. cyanocobala 2020-09 Yes [id number] 1000ug 1 mL by [facility] min 1,000 1-09 Intramuscu ity of mcg/mL 00:00: lar route [place] injection 00 every 2 Medical (two) Branch weeks. levothyroxi 2020-09 Yes [id number] 50ug Take 1 [facility] ne 50 mcg -09 tablet by ity o f tablet 00:00: mouth [place] 00 every Medical morning. Branch fluticasone 2020-09 Yes [id number] 2{puff} Inhale 2 [facility] propionate 1-09 Puffs ity of (FLOVENT 00:00: every 12 [place] HFA) 110 00 (twelve) Medical mcg/actuati hours. Branch on inhaler Rinse mouth after each use. levalbutero 2020-09 Yes [id number] .63mg Inhale [facility] l 0.63 mg/3 1-09 0.63 mg 3 ity of mL 00:00: (three) [place] nebulizer 00 times Medical solution daily as Branch needed for Wheezing or Shortness of Breath. clotrimazol 2020-09 Yes [id number] Apply to [facility] e-betametha -09 area(s) 2 ity of sone cream 00:00: (two) [place] 00 times Medical daily. Branch cyclobenzap 2020-09 Yes [id number] TAKE 1 [facility] rine 5 mg 1-09 TABLET BY ity o f tablet 00:00: MOUTH [place] 00 EVERY 8 Medical HOURS Branch NEEDED econazole 2020-09 Yes [id number] Apply to [facility] nitrate 1 % 1-09 area(s) 2 ity of cream 00:00: (two) [place] 00 times Medical daily. Branch albuterol 2020-09 Yes [id number] 2{puff} Inhale 2 [facility] (PROAIR 1-09 Puffs ity of HFA) 90 00:00: every 6 [place] mcg/actuati 00 (six) Medical on inhaler hours as Branc h needed for Wheezing or Shortness of Breath. triamcinolo 2020-09 Yes [id number] Apply to [facility] ne 0.025 % -09 area(s) 3 ity of ointment 00:00: (three) [place] 00 times Medical daily. For Branch itching cyanocobala 2020-09 Yes [id number] 1000ug 1 mL by [facility] min 1,000 -09 Intramuscu ity of mcg/mL 00:00: lar route [place] injection 00 every 2 Medical (two) Branch weeks. levothyroxi 2020-09 Yes [id number] 50ug Take 1 [facility] ne 50 mcg -09 tablet by ity o f tablet 00:00: mouth [place] 00 every Medical morning. Branch fluticasone 2020-09 Yes [id number] 2{puff} Inhale 2 [facility] propionate 1-09 Puffs ity of (FLOVENT 00:00: every 12 [place] HFA) 110 00 (twelve) Medical mcg/actuati hours. Branch on inhaler Rinse mouth after each use. levalbutero 2020-09 Yes [id number] .63mg Inhale [facility] l 0.63 mg/3 1-09 0.63 mg 3 ity of mL 00:00: (three) [place] nebulizer 00 times Medical solution daily as Branch needed for Wheezing or Shortness of Breath. clotrimazol 2020-09 Yes [id number] Apply to [facility] e-betametha -09 area(s) 2 ity of sone cream 00:00: (two) [place] 00 times Medical daily. Branch cyclobenzap 2020-09 Yes [id number] TAKE 1 [facility] rine 5 mg -09 TABLET BY ity o f tablet 00:00: MOUTH [place] 00 EVERY 8 Medical HOURS Branch NEEDED econazole 2020-09 Yes [id number] Apply to [facility] nitrate 1 % -09 area(s) 2 ity of cream 00:00: (two) [place] 00 times Medical daily. Branch albuterol 2020-09 Yes [id number] 2{puff} Inhale 2 [facility] (PROAIR 1-09 Puffs ity of HFA) 90 00:00: every 6 [place] mcg/actuati 00 (six) Medical on inhaler hours as Branc h needed for Wheezing or Shortness of Breath. triamcinolo 2020-09 Yes [id number] Apply to [facility] ne 0.025 % 1-09 area(s) 3 ity of ointment 00:00: (three) [place] 00 times Medical daily. For Branch itching cyanocobala 2020-09 Yes [id number] 1000ug 1 mL by [facility] min 1,000 1-09 Intramuscu ity of mcg/mL 00:00: lar route [place] injection 00 every 2 Medical (two) Branch weeks. levothyroxi 2020-09 Yes [id number] 50ug Take 1 [facility] ne 50 mcg 1-09 tablet by ity o f tablet 00:00: mouth [place] 00 every Medical morning. Branch fluticasone 2020-09 Yes [id number] 2{puff} Inhale 2 [facility] propionate 1-09 Puffs ity of (FLOVENT 00:00: every 12 [place] HFA) 110 00 (twelve) Medical mcg/actuati hours. Branch on inhaler Rinse mouth after each use. levalbutero 2020-09 Yes [id number] .63mg Inhale [facility] l 0.63 mg/3 1-09 0.63 mg 3 ity of mL 00:00: (three) [place] nebulizer 00 times Medical solution daily as Branch needed for Wheezing or Shortness of Breath. clotrimazol 2020-09 Yes [id number] Apply to [facility] e-betametha 1-09 area(s) 2 ity of sone cream 00:00: (two) [place] 00 times Medical daily. Branch cyclobenzap 2020-09 Yes [id number] TAKE 1 [facility] rine 5 mg 1-09 TABLET BY ity o f tablet 00:00: MOUTH [place] 00 EVERY 8 Medical HOURS Branch NEEDED econazole 2020-09 Yes [id number] Apply to [facility] nitrate 1 % 1-09 area(s) 2 ity of cream 00:00: (two) [place] 00 times Medical daily. Branch albuterol 2020-09 Yes [id number] 2{puff} Inhale 2 [facility] (PROAIR 1-09 Puffs ity of HFA) 90 00:00: every 6 [place] mcg/actuati 00 (six) Medical on inhaler hours as Branc h needed for Wheezing or Shortness of Breath. triamcinolo 2020-09 Yes [id number] Apply to [facility] ne 0.025 % 1-09 area(s) 3 ity of ointment 00:00: (three) [place] 00 times Medical daily. For Branch itching cyanocobala 2020-09 Yes [id number] 1000ug 1 mL by [facility] min 1,000 -09 Intramuscu ity of mcg/mL 00:00: lar route [place] injection 00 every 2 Medical (two) Branch weeks. levothyroxi 2020-09 Yes [id number] 50ug Take 1 [facility] ne 50 mcg -09 tablet by ity o f tablet 00:00: mouth [place] 00 every Medical morning. Branch fluticasone 2020-09 Yes [id number] 2{puff} Inhale 2 [facility] propionate 1-09 Puffs ity of (FLOVENT 00:00: every 12 [place] HFA) 110 00 (twelve) Medical mcg/actuati hours. Branch on inhaler Rinse mouth after each use. levalbutero 2020-09 Yes [id number] .63mg Inhale [facility] l 0.63 mg/3 1-09 0.63 mg 3 ity of mL 00:00: (three) [place] nebulizer 00 times Medical solution daily as Branch needed for Wheezing or Shortness of Breath. clotrimazol 2020-09 Yes [id number] Apply to [facility] e-betametha - area(s) 2 ity of sone cream 00:00: (two) [place] 00 times Medical daily. Branch cyclobenzap 2020-09 Yes [id number] TAKE 1 [facility] rine 5 mg 1-09 TABLET BY ity o f tablet 00:00: MOUTH [place] 00 EVERY 8 Medical HOURS Branch NEEDED econazole 2020-09 Yes [id number] Apply to [facility] nitrate 1 % -09 area(s) 2 ity of cream 00:00: (two) [place] 00 times Medical daily. Branch albuterol 2020-09 Yes [id number] 2{puff} Inhale 2 [facility] (PROAIR 1-09 Puffs ity of HFA) 90 00:00: every 6 [place] mcg/actuati 00 (six) Medical on inhaler hours as Branc h needed for Wheezing or Shortness of Breath. triamcinolo 2020-09 Yes [id number] Apply to [facility] ne 0.025 % -09 area(s) 3 ity of ointment 00:00: (three) [place] 00 times Medical daily. For Branch itching cyanocobala 2020-09 Yes [id number] 1000ug 1 mL by [facility] min 1,000 -09 Intramuscu ity of mcg/mL 00:00: lar route [place] injection 00 every 2 Medical (two) Branch weeks. levothyroxi 2020-09 Yes [id number] 50ug Take 1 [facility] ne 50 mcg -09 tablet by ity o f tablet 00:00: mouth [place] 00 every Medical morning. Branch fluticasone 2020-09 Yes [id number] 2{puff} Inhale 2 [facility] propionate 1-09 Puffs ity of (FLOVENT 00:00: every 12 [place] HFA) 110 00 (twelve) Medical mcg/actuati hours. Branch on inhaler Rinse mouth after each use. levalbutero 2020-09 Yes [id number] .63mg Inhale [facility] l 0.63 mg/3 -09 0.63 mg 3 ity of mL 00:00: (three) [place] nebulizer 00 times Medical solution daily as Branch needed for Wheezing or Shortness of Breath. clotrimazol 2020-09 Yes [id number] Apply to [facility] e-betametha 10-04 area(s) 2 ity of sone cream 00:00: (two) [place] 00 times Medical daily. Branch cyclobenzap 2020-09 Yes [id number] TAKE 1 [facility] rine 5 mg -09 TABLET BY ity o f tablet 00:00: MOUTH [place] 00 EVERY 8 Medical HOURS Branch NEEDED econazole 2020-09 Yes [id number] Apply to [facility] nitrate 1 % -09 area(s) 2 ity of cream 00:00: (two) [place] 00 times Medical daily. Branch albuterol 2020-09 Yes [id number] 2{puff} Inhale 2 [facility] (PROAIR 1-09 Puffs ity of HFA) 90 00:00: every 6 [place] mcg/actuati 00 (six) Medical on inhaler hours as Branc h needed for Wheezing or Shortness of Breath. triamcinolo 2020-09 Yes [id number] Apply to [facility] ne 0.025 % -09 area(s) 3 ity of ointment 00:00: (three) [place] 00 times Medical daily. For Branch itching cyanocobala 2020-09 Yes [id number] 1000ug 1 mL by [facility] min 1,000 -09 Intramuscu ity of mcg/mL 00:00: lar route [place] injection 00 every 2 Medical (two) Branch weeks. levothyroxi 2020-09 Yes [id number] 50ug Take 1 [facility] ne 50 mcg -09 tablet by ity o f tablet 00:00: mouth [place] 00 every Medical morning. Branch fluticasone 2020-09 Yes [id number] 2{puff} Inhale 2 [facility] propionate 1-09 Puffs ity of (FLOVENT 00:00: every 12 [place] HFA) 110 00 (twelve) Medical mcg/actuati hours. Branch on inhaler Rinse mouth after each use. levalbutero 2020-09 Yes [id number] .63mg Inhale [facility] l 0.63 mg/3 1-09 0.63 mg 3 ity of mL 00:00: (three) [place] nebulizer 00 times Medical solution daily as Branch needed for Wheezing or Shortness of Breath. clotrimazol 2020-09 Yes [id number] Apply to [facility] e-betametha 10-04 area(s) 2 ity of sone cream 00:00: (two) [place] 00 times Medical daily. Branch cyclobenzap 2020-09 Yes [id number] TAKE 1 [facility] rine 5 mg -09 TABLET BY ity o f tablet 00:00: MOUTH [place] 00 EVERY 8 Medical HOURS Branch NEEDED econazole 2020-09 Yes [id number] Apply to [facility] nitrate 1 % 09 area(s) 2 ity of cream 00:00: (two) [place] 00 times Medical daily. Branch albuterol 2020-09 Yes [id number] 2{puff} Inhale 2 [facility] (PROAIR 1-09 Puffs ity of HFA) 90 00:00: every 6 [place] mcg/actuati 00 (six) Medical on inhaler hours as Branc h needed for Wheezing or Shortness of Breath. triamcinolo 2020-09 Yes [id number] Apply to [facility] ne 0.025 % 10-04 area(s) 3 ity of ointment 00:00: (three) [place] 00 times Medical daily. For Branch itching cyanocobala 2020-09 Yes [id number] 1000ug 1 mL by [facility] min 1,000 -09 Intramuscu ity of mcg/mL 00:00: lar route [place] injection 00 every 2 Medical (two) Branch weeks. levothyroxi 2020-09 Yes [id number] 50ug Take 1 [facility] ne 50 mcg -09 tablet by ity o f tablet 00:00: mouth [place] 00 every Medical morning. Branch fluticasone 2020-09 Yes [id number] 2{puff} Inhale 2 [facility] propionate -09 Puffs ity of (FLOVENT 00:00: every 12 [place] HFA) 110 00 (twelve) Medical mcg/actuati hours. Branch on inhaler Rinse mouth after each use. levalbutero 2020-09 Yes [id number] .63mg Inhale [facility] l 0.63 mg/3 -09 0.63 mg 3 ity of mL 00:00: (three) [place] nebulizer 00 times Medical solution daily as Branch needed for Wheezing or Shortness of Breath. clotrimazol 2020-09 Yes [id number] Apply to [facility] e-betametha 10-04 area(s) 2 ity of sone cream 00:00: (two) [place] 00 times Medical daily. Branch cyclobenzap 2020-09 Yes [id number] TAKE 1 [facility] rine 5 mg 09 TABLET BY ity o f tablet 00:00: MOUTH [place] 00 EVERY 8 Medical HOURS Branch NEEDED econazole 2020-09 Yes [id number] Apply to [facility] nitrate 1 % 09 area(s) 2 ity of cream 00:00: (two) [place] 00 times Medical daily. Branch albuterol 2020-09 Yes [id number] 2{puff} Inhale 2 [facility] (PROAIR 1-09 Puffs ity of HFA) 90 00:00: every 6 [place] mcg/actuati 00 (six) Medical on inhaler hours as Branc h needed for Wheezing or Shortness of Breath. triamcinolo 2020-09 Yes [id number] Apply to [facility] ne 0.025 % -09 area(s) 3 ity of ointment 00:00: (three) [place] 00 times Medical daily. For Branch itching cyanocobala 2020-09 Yes [id number] 1000ug 1 mL by [facility] min 1,000 -09 Intramuscu ity of mcg/mL 00:00: lar route [place] injection 00 every 2 Medical (two) Branch weeks. levothyroxi 2020-09 Yes [id number] 50ug Take 1 [facility] ne 50 mcg 1-09 tablet by ity o f tablet 00:00: mouth [place] 00 every Medical morning. Branch fluticasone 2020-09 Yes [id number] 2{puff} Inhale 2 [facility] propionate 1-09 Puffs ity of (FLOVENT 00:00: every 12 [place] HFA) 110 00 (twelve) Medical mcg/actuati hours. Branch on inhaler Rinse mouth after each use. levalbutero 2020-09 Yes [id number] .63mg Inhale [facility] l 0.63 mg/3 -09 0.63 mg 3 ity of mL 00:00: (three) [place] nebulizer 00 times Medical solution daily as Branch needed for Wheezing or Shortness of Breath. clotrimazol 2020-09 Yes [id number] Apply to [facility] e-betametha 10-04 area(s) 2 ity of sone cream 00:00: (two) [place] 00 times Medical daily. Branch cyclobenzap 2020-09 Yes [id number] TAKE 1 [facility] rine 5 mg -09 TABLET BY ity o f tablet 00:00: MOUTH [place] 00 EVERY 8 Medical HOURS Branch NEEDED econazole 2020-09 Yes [id number] Apply to [facility] nitrate 1 % -09 area(s) 2 ity of cream 00:00: (two) [place] 00 times Medical daily. Branch albuterol 2020-09 Yes [id number] 2{puff} Inhale 2 [facility] (PROAIR 1-09 Puffs ity of HFA) 90 00:00: every 6 [place] mcg/actuati 00 (six) Medical on inhaler hours as Branc h needed for Wheezing or Shortness of Breath. triamcinolo 2020-09 Yes [id number] Apply to [facility] ne 0.025 % 1-09 area(s) 3 ity of ointment 00:00: (three) [place] 00 times Medical daily. For Branch itching cyanocobala 2020-09 Yes [id number] 1000ug 1 mL by [facility] min 1,000 1-09 Intramuscu ity of mcg/mL 00:00: lar route [place] injection 00 every 2 Medical (two) Branch weeks. levothyroxi 2020-09 Yes [id number] 50ug Take 1 [facility] ne 50 mcg 1-09 tablet by ity o f tablet 00:00: mouth [place] 00 every Medical morning. Branch fluticasone 2020-09 Yes [id number] 2{puff} Inhale 2 [facility] propionate 1-09 Puffs ity of (FLOVENT 00:00: every 12 [place] HFA) 110 00 (twelve) Medical mcg/actuati hours. Branch on inhaler Rinse mouth after each use. levalbutero 2020-09 Yes [id number] .63mg Inhale [facility] l 0.63 mg/3 1-09 0.63 mg 3 ity of mL 00:00: (three) [place] nebulizer 00 times Medical solution daily as Branch needed for Wheezing or Shortness of Breath. clotrimazol 2020-09 Yes [id number] Apply to [facility] e-betametha 1-09 area(s) 2 ity of sone cream 00:00: (two) [place] 00 times Medical daily. Branch cyclobenzap 2020-09 Yes [id number] TAKE 1 [facility] rine 5 mg -09 TABLET BY ity o f tablet 00:00: MOUTH [place] 00 EVERY 8 Medical HOURS Branch NEEDED econazole 2020-09 Yes [id number] Apply to [facility] nitrate 1 % -09 area(s) 2 ity of cream 00:00: (two) [place] 00 times Medical daily. Branch albuterol 2020-09 Yes [id number] 2{puff} Inhale 2 [facility] (PROAIR 1-09 Puffs ity of HFA) 90 00:00: every 6 [place] mcg/actuati 00 (six) Medical on inhaler hours as Branc h needed for Wheezing or Shortness of Breath. triamcinolo 2020-09 Yes [id number] Apply to [facility] ne 0.025 % 1-09 area(s) 3 ity of ointment 00:00: (three) [place] 00 times Medical daily. For Branch itching cyanocobala 2020-09 Yes [id number] 1000ug 1 mL by [facility] min 1,000 1-09 Intramuscu ity of mcg/mL 00:00: lar route [place] injection 00 every 2 Medical (two) Branch weeks. levothyroxi 2020-09 Yes [id number] 50ug Take 1 [facility] ne 50 mcg 1-09 tablet by ity o f tablet 00:00: mouth [place] 00 every Medical morning. Branch fluticasone 2020-09 Yes [id number] 2{puff} Inhale 2 [facility] propionate 1-09 Puffs ity of (FLOVENT 00:00: every 12 [place] HFA) 110 00 (twelve) Medical mcg/actuati hours. Branch on inhaler Rinse mouth after each use. levalbutero 2020-09 Yes [id number] .63mg Inhale [facility] l 0.63 mg/3 1-09 0.63 mg 3 ity of mL 00:00: (three) [place] nebulizer 00 times Medical solution daily as Branch needed for Wheezing or Shortness of Breath. clotrimazol 2020-09 Yes [id number] Apply to [facility] e-betametha 1-09 area(s) 2 ity of sone cream 00:00: (two) [place] 00 times Medical daily. Branch cyclobenzap 2020-09 Yes [id number] TAKE 1 [facility] rine 5 mg 1-09 TABLET BY ity o f tablet 00:00: MOUTH [place] 00 EVERY 8 Medical HOURS Branch NEEDED econazole 2020-09 Yes [id number] Apply to [facility] nitrate 1 % 1-09 area(s) 2 ity of cream 00:00: (two) [place] 00 times Medical daily. Branch albuterol 2020-09 Yes [id number] 2{puff} Inhale 2 [facility] (PROAIR 1-09 Puffs ity of HFA) 90 00:00: every 6 [place] mcg/actuati 00 (six) Medical on inhaler hours as Branc h needed for Wheezing or Shortness of Breath. triamcinolo 2020-09 Yes [id number] Apply to [facility] ne 0.025 % 1-09 area(s) 3 ity of ointment 00:00: (three) [place] 00 times Medical daily. For Branch itching cyanocobala 2020-09 Yes [id number] 1000ug 1 mL by [facility] min 1,000 1-09 Intramuscu ity of mcg/mL 00:00: lar route [place] injection 00 every 2 Medical (two) Branch weeks. levothyroxi 2020-09 Yes [id number] 50ug Take 1 [facility] ne 50 mcg 1-09 tablet by ity o f tablet 00:00: mouth [place] 00 every Medical morning. Branch fluticasone 2020-09 Yes [id number] 2{puff} Inhale 2 [facility] propionate 1-09 Puffs ity of (FLOVENT 00:00: every 12 [place] HFA) 110 00 (twelve) Medical mcg/actuati hours. Branch on inhaler Rinse mouth after each use. levalbutero 2020-09 Yes [id number] .63mg Inhale [facility] l 0.63 mg/3 1-09 0.63 mg 3 ity of mL 00:00: (three) [place] nebulizer 00 times Medical solution daily as Branch needed for Wheezing or Shortness of Breath. clotrimazol 2020-09 Yes [id number] Apply to [facility] e-betametha -09 area(s) 2 ity of sone cream 00:00: (two) [place] 00 times Medical daily. Branch cyclobenzap 2020-09 Yes [id number] TAKE 1 [facility] rine 5 mg 1-09 TABLET BY ity o f tablet 00:00: MOUTH [place] 00 EVERY 8 Medical HOURS Branch NEEDED econazole 2020-09 Yes [id number] Apply to [facility] nitrate 1 % -09 area(s) 2 ity of cream 00:00: (two) [place] 00 times Medical daily. Branch albuterol 2020-09 Yes [id number] 2{puff} Inhale 2 [facility] (PROAIR 1-09 Puffs ity of HFA) 90 00:00: every 6 [place] mcg/actuati 00 (six) Medical on inhaler hours as Branc h needed for Wheezing or Shortness of Breath. triamcinolo 2020-09 Yes [id number] Apply to [facility] ne 0.025 % 1-09 area(s) 3 ity of ointment 00:00: (three) [place] 00 times Medical daily. For Branch itching cyanocobala 2020-09 Yes [id number] 1000ug 1 mL by [facility] min 1,000 1-09 Intramuscu ity of mcg/mL 00:00: lar route [place] injection 00 every 2 Medical (two) Branch weeks. levothyroxi 2020-09 Yes [id number] 50ug Take 1 [facility] ne 50 mcg 1-09 tablet by ity o f tablet 00:00: mouth [place] 00 every Medical morning. Branch fluticasone 2020-09 Yes [id number] 2{puff} Inhale 2 [facility] propionate 1-09 Puffs ity of (FLOVENT 00:00: every 12 [place] HFA) 110 00 (twelve) Medical mcg/actuati hours. Branch on inhaler Rinse mouth after each use. levalbutero 2020-09 Yes [id number] .63mg Inhale [facility] l 0.63 mg/3 1-09 0.63 mg 3 ity of mL 00:00: (three) [place] nebulizer 00 times Medical solution daily as Branch needed for Wheezing or Shortness of Breath. clotrimazol 2020-09 Yes [id number] Apply to [facility] e-betametha 1-09 area(s) 2 ity of sone cream 00:00: (two) [place] 00 times Medical daily. Branch cyclobenzap 2020-09 Yes [id number] TAKE 1 [facility] rine 5 mg -09 TABLET BY ity o f tablet 00:00: MOUTH [place] 00 EVERY 8 Medical HOURS Branch NEEDED econazole 2020-09 Yes [id number] Apply to [facility] nitrate 1 % -09 area(s) 2 ity of cream 00:00: (two) [place] 00 times Medical daily. Branch albuterol 2020-09 Yes [id number] 2{puff} Inhale 2 [facility] (PROAIR 1-09 Puffs ity of HFA) 90 00:00: every 6 [place] mcg/actuati 00 (six) Medical on inhaler hours as Branc h needed for Wheezing or Shortness of Breath. triamcinolo 2020-09 Yes [id number] Apply to [facility] ne 0.025 % 1-09 area(s) 3 ity of ointment 00:00: (three) [place] 00 times Medical daily. For Branch itching cyanocobala 2020-09 Yes [id number] 1000ug 1 mL by [facility] min 1,000 1-09 Intramuscu ity of mcg/mL 00:00: lar route [place] injection 00 every 2 Medical (two) Branch weeks. levothyroxi 2020-09 Yes [id number] 50ug Take 1 [facility] ne 50 mcg 1-09 tablet by ity o f tablet 00:00: mouth [place] 00 every Medical morning. Branch fluticasone 2020-09 Yes [id number] 2{puff} Inhale 2 [facility] propionate 1-09 Puffs ity of (FLOVENT 00:00: every 12 [place] HFA) 110 00 (twelve) Medical mcg/actuati hours. Branch on inhaler Rinse mouth after each use. levalbutero 2020-09 Yes [id number] .63mg Inhale [facility] l 0.63 mg/3 1-09 0.63 mg 3 ity of mL 00:00: (three) [place] nebulizer 00 times Medical solution daily as Branch needed for Wheezing or Shortness of Breath. clotrimazol 2020-09 Yes [id number] Apply to [facility] e-betametha -09 area(s) 2 ity of sone cream 00:00: (two) [place] 00 times Medical daily. Branch cyclobenzap 2020-09 Yes [id number] TAKE 1 [facility] rine 5 mg -09 TABLET BY ity o f tablet 00:00: MOUTH [place] 00 EVERY 8 Medical HOURS Branch NEEDED econazole 2020-09 Yes [id number] Apply to [facility] nitrate 1 % -09 area(s) 2 ity of cream 00:00: (two) [place] 00 times Medical daily. Branch albuterol 2020-09 Yes [id number] 2{puff} Inhale 2 [facility] (PROAIR 1-09 Puffs ity of HFA) 90 00:00: every 6 [place] mcg/actuati 00 (six) Medical on inhaler hours as Branc h needed for Wheezing or Shortness of Breath. triamcinolo 2020-09 Yes [id number] Apply to [facility] ne 0.025 % 1-09 area(s) 3 ity of ointment 00:00: (three) [place] 00 times Medical daily. For Branch itching cyanocobala 2020-09 Yes [id number] 1000ug 1 mL by [facility] min 1,000 1-09 Intramuscu ity of mcg/mL 00:00: lar route [place] injection 00 every 2 Medical (two) Branch weeks. levothyroxi 2020-09 Yes [id number] 50ug Take 1 [facility] ne 50 mcg 1-09 tablet by ity o f tablet 00:00: mouth [place] 00 every Medical morning. Branch fluticasone 2020-09 Yes [id number] 2{puff} Inhale 2 [facility] propionate 1-09 Puffs ity of (FLOVENT 00:00: every 12 [place] HFA) 110 00 (twelve) Medical mcg/actuati hours. Branch on inhaler Rinse mouth after each use. levalbutero 2020-09 Yes [id number] .63mg Inhale [facility] l 0.63 mg/3 1-09 0.63 mg 3 ity of mL 00:00: (three) [place] nebulizer 00 times Medical solution daily as Branch needed for Wheezing or Shortness of Breath. clotrimazol 2020-09 Yes [id number] Apply to [facility] e-betametha -09 area(s) 2 ity of sone cream 00:00: (two) [place] 00 times Medical daily. Branch cyclobenzap 2020-09 Yes [id number] TAKE 1 [facility] rine 5 mg -09 TABLET BY ity o f tablet 00:00: MOUTH [place] 00 EVERY 8 Medical HOURS Branch NEEDED econazole 2020-09 Yes [id number] Apply to [facility] nitrate 1 % -09 area(s) 2 ity of cream 00:00: (two) [place] 00 times Medical daily. Branch albuterol 2020-09 Yes [id number] 2{puff} Inhale 2 [facility] (PROAIR 1-09 Puffs ity of HFA) 90 00:00: every 6 [place] mcg/actuati 00 (six) Medical on inhaler hours as Branc h needed for Wheezing or Shortness of Breath. triamcinolo 2020-09 Yes [id number] Apply to [facility] ne 0.025 % -09 area(s) 3 ity of ointment 00:00: (three) [place] 00 times Medical daily. For Branch itching cyanocobala 2020-09 Yes [id number] 1000ug 1 mL by [facility] min 1,000 1-09 Intramuscu ity of mcg/mL 00:00: lar route [place] injection 00 every 2 Medical (two) Branch weeks. levothyroxi 2020-09 Yes [id number] 50ug Take 1 [facility] ne 50 mcg -09 tablet by ity o f tablet 00:00: mouth [place] 00 every Medical morning. Branch fluticasone 2020-09 Yes [id number] 2{puff} Inhale 2 [facility] propionate 1-09 Puffs ity of (FLOVENT 00:00: every 12 [place] HFA) 110 00 (twelve) Medical mcg/actuati hours. Branch on inhaler Rinse mouth after each use. levalbutero 2020-09 Yes [id number] .63mg Inhale [facility] l 0.63 mg/3 1-09 0.63 mg 3 ity of mL 00:00: (three) [place] nebulizer 00 times Medical solution daily as Branch needed for Wheezing or Shortness of Breath. clotrimazol 2020-09 Yes [id number] Apply to [facility] e-betametha 1-09 area(s) 2 ity of sone cream 00:00: (two) [place] 00 times Medical daily. Branch cyclobenzap 2020-09 Yes [id number] TAKE 1 [facility] rine 5 mg -09 TABLET BY ity o f tablet 00:00: MOUTH [place] 00 EVERY 8 Medical HOURS Branch NEEDED econazole 2020-09 Yes [id number] Apply to [facility] nitrate 1 % -09 area(s) 2 ity of cream 00:00: (two) [place] 00 times Medical daily. Branch albuterol 2020-09 Yes [id number] 2{puff} Inhale 2 [facility] (PROAIR 1-09 Puffs ity of HFA) 90 00:00: every 6 [place] mcg/actuati 00 (six) Medical on inhaler hours as Branc h needed for Wheezing or Shortness of Breath. triamcinolo 2020-09 Yes [id number] Apply to [facility] ne 0.025 % 1-09 area(s) 3 ity of ointment 00:00: (three) [place] 00 times Medical daily. For Branch itching cyanocobala 2020-09 Yes [id number] 1000ug 1 mL by [facility] min 1,000 1-09 Intramuscu ity of mcg/mL 00:00: lar route [place] injection 00 every 2 Medical (two) Branch weeks. levothyroxi 2020-09 Yes [id number] 50ug Take 1 [facility] ne 50 mcg 1-09 tablet by ity o f tablet 00:00: mouth [place] 00 every Medical morning. Branch fluticasone 2020-09 Yes [id number] 2{puff} Inhale 2 [facility] propionate 1-09 Puffs ity of (FLOVENT 00:00: every 12 [place] HFA) 110 00 (twelve) Medical mcg/actuati hours. Branch on inhaler Rinse mouth after each use. levalbutero 2020-09 Yes [id number] .63mg Inhale [facility] l 0.63 mg/3 1-09 0.63 mg 3 ity of mL 00:00: (three) [place] nebulizer 00 times Medical solution daily as Branch needed for Wheezing or Shortness of Breath. clotrimazol 2020-09 Yes [id number] Apply to [facility] e-betametha -09 area(s) 2 ity of sone cream 00:00: (two) [place] 00 times Medical daily. Branch cyclobenzap 2020-09 Yes [id number] TAKE 1 [facility] rine 5 mg -09 TABLET BY ity o f tablet 00:00: MOUTH [place] 00 EVERY 8 Medical HOURS Branch NEEDED econazole 2020-09 Yes [id number] Apply to [facility] nitrate 1 % 10-04 area(s) 2 ity of cream 00:00: (two) [place] 00 times Medical daily. Branch albuterol 2020-09 Yes [id number] 2{puff} Inhale 2 [facility] (PROAIR 1-09 Puffs ity of HFA) 90 00:00: every 6 [place] mcg/actuati 00 (six) Medical on inhaler hours as Branc h needed for Wheezing or Shortness of Breath. triamcinolo 2020-09 Yes [id number] Apply to [facility] ne 0.025 % 09 area(s) 3 ity of ointment 00:00: (three) [place] 00 times Medical daily. For Branch itching cyanocobala 2020-09 Yes [id number] 1000ug 1 mL by [facility] min 1,000 1-09 Intramuscu ity of mcg/mL 00:00: lar route [place] injection 00 every 2 Medical (two) Branch weeks. levothyroxi 2020-09 Yes [id number] 50ug Take 1 [facility] ne 50 mcg 1-09 tablet by ity o f tablet 00:00: mouth [place] 00 every Medical morning. Branch fluticasone 2020-09 Yes [id number] 2{puff} Inhale 2 [facility] propionate 1-09 Puffs ity of (FLOVENT 00:00: every 12 [place] HFA) 110 00 (twelve) Medical mcg/actuati hours. Branch on inhaler Rinse mouth after each use. levalbutero 2020-09 Yes [id number] .63mg Inhale [facility] l 0.63 mg/3 1-09 0.63 mg 3 ity of mL 00:00: (three) [place] nebulizer 00 times Medical solution daily as Branch needed for Wheezing or Shortness of Breath. clotrimazol 2020-09 Yes [id number] Apply to [facility] e-betametha 09 area(s) 2 ity of sone cream 00:00: (two) [place] 00 times Medical daily. Branch cyclobenzap 2020-09 Yes [id number] TAKE 1 [facility] rine 5 mg -09 TABLET BY ity o f tablet 00:00: MOUTH [place] 00 EVERY 8 Medical HOURS Branch NEEDED econazole 2020-09 Yes [id number] Apply to [facility] nitrate 1 % 09 area(s) 2 ity of cream 00:00: (two) [place] 00 times Medical daily. Branch albuterol 2020-09 Yes [id number] 2{puff} Inhale 2 [facility] (PROAIR 1-09 Puffs ity of HFA) 90 00:00: every 6 [place] mcg/actuati 00 (six) Medical on inhaler hours as Branc h needed for Wheezing or Shortness of Breath. triamcinolo 2020-09 Yes [id number] Apply to [facility] ne 0.025 % 09 area(s) 3 ity of ointment 00:00: (three) [place] 00 times Medical daily. For Branch itching cyanocobala 2020-09 Yes [id number] 1000ug 1 mL by [facility] min 1,000 -09 Intramuscu ity of mcg/mL 00:00: lar route [place] injection 00 every 2 Medical (two) Branch weeks. levothyroxi 2020-09 Yes [id number] 50ug Take 1 [facility] ne 50 mcg 1-09 tablet by ity o f tablet 00:00: mouth [place] 00 every Medical morning. Branch fluticasone 2020-09 Yes [id number] 2{puff} Inhale 2 [facility] propionate 1-09 Puffs ity of (FLOVENT 00:00: every 12 [place] HFA) 110 00 (twelve) Medical mcg/actuati hours. Branch on inhaler Rinse mouth after each use. levalbutero 2020-09 Yes [id number] .63mg Inhale [facility] l 0.63 mg/3 -09 0.63 mg 3 ity of mL 00:00: (three) [place] nebulizer 00 times Medical solution daily as Branch needed for Wheezing or Shortness of Breath. clotrimazol 2020-09 Yes [id number] Apply to [facility] e-betametha 09 area(s) 2 ity of sone cream 00:00: (two) [place] 00 times Medical daily. Branch cyclobenzap 2020-09 Yes [id number] TAKE 1 [facility] rine 5 mg 09 TABLET BY ity o f tablet 00:00: MOUTH [place] 00 EVERY 8 Medical HOURS Branch NEEDED econazole 2020-09 Yes [id number] Apply to [facility] nitrate 1 % 10-04 area(s) 2 ity of cream 00:00: (two) [place] 00 times Medical daily. Branch albuterol 2020-09 Yes [id number] 2{puff} Inhale 2 [facility] (PROAIR 1-09 Puffs ity of HFA) 90 00:00: every 6 [place] mcg/actuati 00 (six) Medical on inhaler hours as Branc h needed for Wheezing or Shortness of Breath. triamcinolo 2020-09 Yes [id number] Apply to [facility] ne 0.025 % 10-04 area(s) 3 ity of ointment 00:00: (three) [place] 00 times Medical daily. For Branch itching cyanocobala 2020-09 Yes [id number] 1000ug 1 mL by [facility] min 1,000 -09 Intramuscu ity of mcg/mL 00:00: lar route [place] injection 00 every 2 Medical (two) Branch weeks. levothyroxi 2020-09 Yes [id number] 50ug Take 1 [facility] ne 50 mcg -09 tablet by ity o f tablet 00:00: mouth [place] 00 every Medical morning. Branch fluticasone 2020-09 Yes [id number] 2{puff} Inhale 2 [facility] propionate 1-09 Puffs ity of (FLOVENT 00:00: every 12 [place] HFA) 110 00 (twelve) Medical mcg/actuati hours. Branch on inhaler Rinse mouth after each use. levalbutero 2020-09 Yes [id number] .63mg Inhale [facility] l 0.63 mg/3 1-09 0.63 mg 3 ity of mL 00:00: (three) [place] nebulizer 00 times Medical solution daily as Branch needed for Wheezing or Shortness of Breath. clotrimazol 2020-09 Yes [id number] Apply to [facility] e-betametha 1-09 area(s) 2 ity of sone cream 00:00: (two) [place] 00 times Medical daily. Branch cyclobenzap 2020-09 Yes [id number] TAKE 1 [facility] rine 5 mg 1-09 TABLET BY ity o f tablet 00:00: MOUTH [place] 00 EVERY 8 Medical HOURS Branch NEEDED econazole 2020-09 Yes [id number] Apply to [facility] nitrate 1 % -09 area(s) 2 ity of cream 00:00: (two) [place] 00 times Medical daily. Branch albuterol 2020-09 Yes [id number] 2{puff} Inhale 2 [facility] (PROAIR 1-09 Puffs ity of HFA) 90 00:00: every 6 [place] mcg/actuati 00 (six) Medical on inhaler hours as Branc h needed for Wheezing or Shortness of Breath. triamcinolo 2020-09 Yes [id number] Apply to [facility] ne 0.025 % 1-09 area(s) 3 ity of ointment 00:00: (three) [place] 00 times Medical daily. For Branch itching cyanocobala 2020-09 Yes [id number] 1000ug 1 mL by [facility] min 1,000 1-09 Intramuscu ity of mcg/mL 00:00: lar route [place] injection 00 every 2 Medical (two) Branch weeks. levothyroxi 2020-09 Yes [id number] 50ug Take 1 [facility] ne 50 mcg 1-09 tablet by ity o f tablet 00:00: mouth [place] 00 every Medical morning. Branch fluticasone 2020-09 Yes [id number] 2{puff} Inhale 2 [facility] propionate 1-09 Puffs ity of (FLOVENT 00:00: every 12 [place] HFA) 110 00 (twelve) Medical mcg/actuati hours. Branch on inhaler Rinse mouth after each use. levalbutero 2020-09 Yes [id number] .63mg Inhale [facility] l 0.63 mg/3 1-09 0.63 mg 3 ity of mL 00:00: (three) [place] nebulizer 00 times Medical solution daily as Branch needed for Wheezing or Shortness of Breath. clotrimazol 2020-09 Yes [id number] Apply to [facility] e-betametha -09 area(s) 2 ity of sone cream 00:00: (two) [place] 00 times Medical daily. Branch cyclobenzap 2020-09 Yes [id number] TAKE 1 [facility] rine 5 mg 1-09 TABLET BY ity o f tablet 00:00: MOUTH [place] 00 EVERY 8 Medical HOURS Branch NEEDED econazole 2020-09 Yes [id number] Apply to [facility] nitrate 1 % 09 area(s) 2 ity of cream 00:00: (two) [place] 00 times Medical daily. Branch albuterol 2020-09 Yes [id number] 2{puff} Inhale 2 [facility] (PROAIR 1-09 Puffs ity of HFA) 90 00:00: every 6 [place] mcg/actuati 00 (six) Medical on inhaler hours as Branc h needed for Wheezing or Shortness of Breath. triamcinolo 2020-09 Yes [id number] Apply to [facility] ne 0.025 % 09 area(s) 3 ity of ointment 00:00: (three) [place] 00 times Medical daily. For Branch itching cyanocobala 2020-09 Yes [id number] 1000ug 1 mL by [facility] min 1,000 1-09 Intramuscu ity of mcg/mL 00:00: lar route [place] injection 00 every 2 Medical (two) Branch weeks. levothyroxi 2020-09 Yes [id number] 50ug Take 1 [facility] ne 50 mcg 09 tablet by ity o f tablet 00:00: mouth [place] 00 every Medical morning. Branch fluticasone 2020-09 Yes [id number] 2{puff} Inhale 2 [facility] propionate 1-09 Puffs ity of (FLOVENT 00:00: every 12 [place] HFA) 110 00 (twelve) Medical mcg/actuati hours. Branch on inhaler Rinse mouth after each use. levalbutero 2020-09 Yes [id number] .63mg Inhale [facility] l 0.63 mg/3 1-09 0.63 mg 3 ity of mL 00:00: (three) [place] nebulizer 00 times Medical solution daily as Branch needed for Wheezing or Shortness of Breath. clotrimazol 2020-09 Yes [id number] Apply to [facility] e-betametha - area(s) 2 ity of sone cream 00:00: (two) [place] 00 times Medical daily. Branch cyclobenzap 2020-09 Yes [id number] TAKE 1 [facility] rine 5 mg -09 TABLET BY ity o f tablet 00:00: MOUTH [place] 00 EVERY 8 Medical HOURS Branch NEEDED econazole 2020-09 Yes [id number] Apply to [facility] nitrate 1 % 10-04 area(s) 2 ity of cream 00:00: (two) [place] 00 times Medical daily. Branch albuterol 2020-09 Yes [id number] 2{puff} Inhale 2 [facility] (PROAIR 1-09 Puffs ity of HFA) 90 00:00: every 6 [place] mcg/actuati 00 (six) Medical on inhaler hours as Branc h needed for Wheezing or Shortness of Breath. triamcinolo 2020-09 Yes [id number] Apply to [facility] ne 0.025 % 10-04 area(s) 3 ity of ointment 00:00: (three) [place] 00 times Medical daily. For Branch itching cyanocobala 2020-09 Yes [id number] 1000ug 1 mL by [facility] min 1,000 1-09 Intramuscu ity of mcg/mL 00:00: lar route [place] injection 00 every 2 Medical (two) Branch weeks. levothyroxi 2020-09 Yes [id number] 50ug Take 1 [facility] ne 50 mcg - tablet by ity o f tablet 00:00: mouth [place] 00 every Medical morning. Branch fluticasone 2020-09 Yes [id number] 2{puff} Inhale 2 [facility] propionate 1-09 Puffs ity of (FLOVENT 00:00: every 12 [place] HFA) 110 00 (twelve) Medical mcg/actuati hours. Branch on inhaler Rinse mouth after each use. levalbutero 2020-09 Yes [id number] .63mg Inhale [facility] l 0.63 mg/3 1-09 0.63 mg 3 ity of mL 00:00: (three) [place] nebulizer 00 times Medical solution daily as Branch needed for Wheezing or Shortness of Breath. clotrimazol 2020-09 Yes [id number] Apply to [facility] e-betametha 1-09 area(s) 2 ity of sone cream 00:00: (two) [place] 00 times Medical daily. Branch cyclobenzap 2020-09 Yes [id number] TAKE 1 [facility] rine 5 mg 1-09 TABLET BY ity o f tablet 00:00: MOUTH [place] 00 EVERY 8 Medical HOURS Branch NEEDED econazole 2020-09 Yes [id number] Apply to [facility] nitrate 1 % -09 area(s) 2 ity of cream 00:00: (two) [place] 00 times Medical daily. Branch albuterol 2020-09 Yes [id number] 2{puff} Inhale 2 [facility] (PROAIR 1-09 Puffs ity of HFA) 90 00:00: every 6 [place] mcg/actuati 00 (six) Medical on inhaler hours as Branc h needed for Wheezing or Shortness of Breath. triamcinolo 2020-09 Yes [id number] Apply to [facility] ne 0.025 % 10-04 area(s) 3 ity of ointment 00:00: (three) [place] 00 times Medical daily. For Branch itching cyanocobala 2020-09 Yes [id number] 1000ug 1 mL by [facility] min 1,000 1-09 Intramuscu ity of mcg/mL 00:00: lar route [place] injection 00 every 2 Medical (two) Branch weeks. levothyroxi 2020-09 Yes [id number] 50ug Take 1 [facility] ne 50 mcg -09 tablet by ity o f tablet 00:00: mouth [place] 00 every Medical morning. Branch fluticasone 2020-09 Yes [id number] 2{puff} Inhale 2 [facility] propionate 1-09 Puffs ity of (FLOVENT 00:00: every 12 [place] HFA) 110 00 (twelve) Medical mcg/actuati hours. Branch on inhaler Rinse mouth after each use. levalbutero 2020-09 Yes [id number] .63mg Inhale [facility] l 0.63 mg/3 1-09 0.63 mg 3 ity of mL 00:00: (three) [place] nebulizer 00 times Medical solution daily as Branch needed for Wheezing or Shortness of Breath. clotrimazol 2020-09 Yes [id number] Apply to [facility] e-betametha -09 area(s) 2 ity of sone cream 00:00: (two) [place] 00 times Medical daily. Branch cyclobenzap 2020-09 Yes [id number] TAKE 1 [facility] rine 5 mg 1-09 TABLET BY ity o f tablet 00:00: MOUTH [place] 00 EVERY 8 Medical HOURS Branch NEEDED econazole 2020-09 Yes [id number] Apply to [facility] nitrate 1 % 09 area(s) 2 ity of cream 00:00: (two) [place] 00 times Medical daily. Branch albuterol 2020-09 Yes [id number] 2{puff} Inhale 2 [facility] (PROAIR 1-09 Puffs ity of HFA) 90 00:00: every 6 [place] mcg/actuati 00 (six) Medical on inhaler hours as Branc h needed for Wheezing or Shortness of Breath. triamcinolo 2020-09 Yes [id number] Apply to [facility] ne 0.025 % 10-04 area(s) 3 ity of ointment 00:00: (three) [place] 00 times Medical daily. For Branch itching cyanocobala 2020-09 Yes [id number] 1000ug 1 mL by [facility] min 1,000 1-09 Intramuscu ity of mcg/mL 00:00: lar route [place] injection 00 every 2 Medical (two) Branch weeks. levothyroxi 2020-09 Yes [id number] 50ug Take 1 [facility] ne 50 mcg -09 tablet by ity o f tablet 00:00: mouth [place] 00 every Medical morning. Branch fluticasone 2020-09 Yes [id number] 2{puff} Inhale 2 [facility] propionate 1-09 Puffs ity of (FLOVENT 00:00: every 12 [place] HFA) 110 00 (twelve) Medical mcg/actuati hours. Branch on inhaler Rinse mouth after each use. levalbutero 2020-09 Yes [id number] .63mg Inhale [facility] l 0.63 mg/3 1-09 0.63 mg 3 ity of mL 00:00: (three) [place] nebulizer 00 times Medical solution daily as Branch needed for Wheezing or Shortness of Breath. clotrimazol 2020-09 Yes [id number] Apply to [facility] e-betametha 1-09 area(s) 2 ity of sone cream 00:00: (two) [place] 00 times Medical daily. Branch cyclobenzap 2020-09 Yes [id number] TAKE 1 [facility] rine 5 mg 1-09 TABLET BY ity o f tablet 00:00: MOUTH [place] 00 EVERY 8 Medical HOURS Branch NEEDED econazole 2020-09 Yes [id number] Apply to [facility] nitrate 1 % -09 area(s) 2 ity of cream 00:00: (two) [place] 00 times Medical daily. Branch albuterol 2020-09 Yes [id number] 2{puff} Inhale 2 [facility] (PROAIR 1-09 Puffs ity of HFA) 90 00:00: every 6 [place] mcg/actuati 00 (six) Medical on inhaler hours as Branc h needed for Wheezing or Shortness of Breath. triamcinolo 2020-09 Yes [id number] Apply to [facility] ne 0.025 % 10-04 area(s) 3 ity of ointment 00:00: (three) [place] 00 times Medical daily. For Branch itching cyanocobala 2020-09 Yes [id number] 1000ug 1 mL by [facility] min 1,000 -09 Intramuscu ity of mcg/mL 00:00: lar route [place] injection 00 every 2 Medical (two) Branch weeks. levothyroxi 2020-09 Yes [id number] 50ug Take 1 [facility] ne 50 mcg -09 tablet by ity o f tablet 00:00: mouth [place] 00 every Medical morning. Branch fluticasone 2020-09 Yes [id number] 2{puff} Inhale 2 [facility] propionate 1-09 Puffs ity of (FLOVENT 00:00: every 12 [place] HFA) 110 00 (twelve) Medical mcg/actuati hours. Branch on inhaler Rinse mouth after each use. levalbutero 2020-09 Yes [id number] .63mg Inhale [facility] l 0.63 mg/3 1-09 0.63 mg 3 ity of mL 00:00: (three) [place] nebulizer 00 times Medical solution daily as Branch needed for Wheezing or Shortness of Breath. clotrimazol 2020-09 Yes [id number] Apply to [facility] e-betametha -09 area(s) 2 ity of sone cream 00:00: (two) [place] 00 times Medical daily. Branch cyclobenzap 2020-09 Yes [id number] TAKE 1 [facility] rine 5 mg 1-09 TABLET BY ity o f tablet 00:00: MOUTH [place] 00 EVERY 8 Medical HOURS Branch NEEDED econazole 2020-09 Yes [id number] Apply to [facility] nitrate 1 % 1-09 area(s) 2 ity of cream 00:00: (two) [place] 00 times Medical daily. Branch albuterol 2020-09 Yes [id number] 2{puff} Inhale 2 [facility] (PROAIR 1-09 Puffs ity of HFA) 90 00:00: every 6 [place] mcg/actuati 00 (six) Medical on inhaler hours as Branc h needed for Wheezing or Shortness of Breath. triamcinolo 2020-09 Yes [id number] Apply to [facility] ne 0.025 % 1-09 area(s) 3 ity of ointment 00:00: (three) [place] 00 times Medical daily. For Branch itching cyanocobala 2020-09 Yes [id number] 1000ug 1 mL by [facility] min 1,000 1-09 Intramuscu ity of mcg/mL 00:00: lar route [place] injection 00 every 2 Medical (two) Branch weeks. levothyroxi 2020-09 Yes [id number] 50ug Take 1 [facility] ne 50 mcg 1-09 tablet by ity o f tablet 00:00: mouth [place] 00 every Medical morning. Branch fluticasone 2020-09 Yes [id number] 2{puff} Inhale 2 [facility] propionate 1-09 Puffs ity of (FLOVENT 00:00: every 12 [place] HFA) 110 00 (twelve) Medical mcg/actuati hours. Branch on inhaler Rinse mouth after each use. levalbutero 2020-09 Yes [id number] .63mg Inhale [facility] l 0.63 mg/3 1-09 0.63 mg 3 ity of mL 00:00: (three) [place] nebulizer 00 times Medical solution daily as Branch needed for Wheezing or Shortness of Breath. clotrimazol 2020-09 Yes [id number] Apply to [facility] e-betametha 1-09 area(s) 2 ity of sone cream 00:00: (two) [place] 00 times Medical daily. Branch cyclobenzap 2020-09 Yes [id number] TAKE 1 [facility] rine 5 mg 1-09 TABLET BY ity o f tablet 00:00: MOUTH [place] 00 EVERY 8 Medical HOURS Branch NEEDED econazole 2020-09 Yes [id number] Apply to [facility] nitrate 1 % 1-09 area(s) 2 ity of cream 00:00: (two) [place] 00 times Medical daily. Branch albuterol 2020-09 Yes [id number] 2{puff} Inhale 2 [facility] (PROAIR 1-09 Puffs ity of HFA) 90 00:00: every 6 [place] mcg/actuati 00 (six) Medical on inhaler hours as Branc h needed for Wheezing or Shortness of Breath. triamcinolo 2020-09 Yes [id number] Apply to [facility] ne 0.025 % -09 area(s) 3 ity of ointment 00:00: (three) [place] 00 times Medical daily. For Branch itching cyanocobala 2020-09 Yes [id number] 1000ug 1 mL by [facility] min 1,000 -09 Intramuscu ity of mcg/mL 00:00: lar route [place] injection 00 every 2 Medical (two) Branch weeks. levothyroxi 2020-09 Yes [id number] 50ug Take 1 [facility] ne 50 mcg -09 tablet by ity o f tablet 00:00: mouth [place] 00 every Medical morning. Branch fluticasone 2020-09 Yes [id number] 2{puff} Inhale 2 [facility] propionate 1-09 Puffs ity of (FLOVENT 00:00: every 12 [place] HFA) 110 00 (twelve) Medical mcg/actuati hours. Branch on inhaler Rinse mouth after each use. levalbutero 2020-09 Yes [id number] .63mg Inhale [facility] l 0.63 mg/3 1-09 0.63 mg 3 ity of mL 00:00: (three) [place] nebulizer 00 times Medical solution daily as Branch needed for Wheezing or Shortness of Breath. clotrimazol 2020-09 Yes [id number] Apply to [facility] e-betametha -09 area(s) 2 ity of sone cream 00:00: (two) [place] 00 times Medical daily. Branch cyclobenzap 2020-09 Yes [id number] TAKE 1 [facility] rine 5 mg -09 TABLET BY ity o f tablet 00:00: MOUTH [place] 00 EVERY 8 Medical HOURS Branch NEEDED econazole 2020-09 Yes [id number] Apply to [facility] nitrate 1 % -09 area(s) 2 ity of cream 00:00: (two) [place] 00 times Medical daily. Branch albuterol 2020-09 Yes [id number] 2{puff} Inhale 2 [facility] (PROAIR 1-09 Puffs ity of HFA) 90 00:00: every 6 [place] mcg/actuati 00 (six) Medical on inhaler hours as Branc h needed for Wheezing or Shortness of Breath. triamcinolo 2020-09 Yes [id number] Apply to [facility] ne 0.025 % 1-09 area(s) 3 ity of ointment 00:00: (three) [place] 00 times Medical daily. For Branch itching cyanocobala 2020-09 Yes [id number] 1000ug 1 mL by [facility] min 1,000 1-09 Intramuscu ity of mcg/mL 00:00: lar route [place] injection 00 every 2 Medical (two) Branch weeks. levothyroxi 2020-09 Yes [id number] 50ug Take 1 [facility] ne 50 mcg 1-09 tablet by ity o f tablet 00:00: mouth [place] 00 every Medical morning. Branch fluticasone 2020-09 Yes [id number] 2{puff} Inhale 2 [facility] propionate 1-09 Puffs ity of (FLOVENT 00:00: every 12 [place] HFA) 110 00 (twelve) Medical mcg/actuati hours. Branch on inhaler Rinse mouth after each use. levalbutero 2020-09 Yes [id number] .63mg Inhale [facility] l 0.63 mg/3 1-09 0.63 mg 3 ity of mL 00:00: (three) [place] nebulizer 00 times Medical solution daily as Branch needed for Wheezing or Shortness of Breath. clotrimazol 2020-09 Yes [id number] Apply to [facility] e-betametha 1-09 area(s) 2 ity of sone cream 00:00: (two) [place] 00 times Medical daily. Branch cyclobenzap 2020-09 Yes [id number] TAKE 1 [facility] rine 5 mg 1-09 TABLET BY ity o f tablet 00:00: MOUTH [place] 00 EVERY 8 Medical HOURS Branch NEEDED econazole 2020-09 Yes [id number] Apply to [facility] nitrate 1 % -09 area(s) 2 ity of cream 00:00: (two) [place] 00 times Medical daily. Branch albuterol 2020-09 Yes [id number] 2{puff} Inhale 2 [facility] (PROAIR 1-09 Puffs ity of HFA) 90 00:00: every 6 [place] mcg/actuati 00 (six) Medical on inhaler hours as Branc h needed for Wheezing or Shortness of Breath. triamcinolo 2020-09 Yes [id number] Apply to [facility] ne 0.025 % -09 area(s) 3 ity of ointment 00:00: (three) [place] 00 times Medical daily. For Branch itching cyanocobala 2020-09 Yes [id number] 1000ug 1 mL by [facility] min 1,000 -09 Intramuscu ity of mcg/mL 00:00: lar route [place] injection 00 every 2 Medical (two) Branch weeks. levothyroxi 2020-09 Yes [id number] 50ug Take 1 [facility] ne 50 mcg -09 tablet by ity o f tablet 00:00: mouth [place] 00 every Medical morning. Branch fluticasone 2020-09 Yes [id number] 2{puff} Inhale 2 [facility] propionate 1-09 Puffs ity of (FLOVENT 00:00: every 12 [place] HFA) 110 00 (twelve) Medical mcg/actuati hours. Branch on inhaler Rinse mouth after each use. levalbutero 2020-09 Yes [id number] .63mg Inhale [facility] l 0.63 mg/3 1-09 0.63 mg 3 ity of mL 00:00: (three) [place] nebulizer 00 times Medical solution daily as Branch needed for Wheezing or Shortness of Breath. clotrimazol 2020-09 Yes [id number] Apply to [facility] e-betametha -09 area(s) 2 ity of sone cream 00:00: (two) [place] 00 times Medical daily. Branch cyclobenzap 2020-09 Yes [id number] TAKE 1 [facility] rine 5 mg 1-09 TABLET BY ity o f tablet 00:00: MOUTH [place] 00 EVERY 8 Medical HOURS Branch NEEDED econazole 2020-09 Yes [id number] Apply to [facility] nitrate 1 % -09 area(s) 2 ity of cream 00:00: (two) [place] 00 times Medical daily. Branch albuterol 2020-09 Yes [id number] 2{puff} Inhale 2 [facility] (PROAIR 1-09 Puffs ity of HFA) 90 00:00: every 6 [place] mcg/actuati 00 (six) Medical on inhaler hours as Branc h needed for Wheezing or Shortness of Breath. triamcinolo 2020-09 Yes [id number] Apply to [facility] ne 0.025 % 10-04 area(s) 3 ity of ointment 00:00: (three) [place] 00 times Medical daily. For Branch itching cyanocobala 2020-09 Yes [id number] 1000ug 1 mL by [facility] min 1,000 09 Intramuscu ity of mcg/mL 00:00: lar route [place] injection 00 every 2 Medical (two) Branch weeks. levothyroxi 2020-09 Yes [id number] 50ug Take 1 [facility] ne 50 mcg -09 tablet by ity o f tablet 00:00: mouth [place] 00 every Medical morning. Branch fluticasone 2020-09 Yes [id number] 2{puff} Inhale 2 [facility] propionate -09 Puffs ity of (FLOVENT 00:00: every 12 [place] HFA) 110 00 (twelve) Medical mcg/actuati hours. Branch on inhaler Rinse mouth after each use. levalbutero 2020-09 Yes [id number] .63mg Inhale [facility] l 0.63 mg/3 -09 0.63 mg 3 ity of mL 00:00: (three) [place] nebulizer 00 times Medical solution daily as Branch needed for Wheezing or Shortness of Breath. clotrimazol 2020-09 Yes [id number] Apply to [facility] e-betametha 10-04 area(s) 2 ity of sone cream 00:00: (two) [place] 00 times Medical daily. Branch cyclobenzap 2020-09 Yes [id number] TAKE 1 [facility] rine 5 mg -09 TABLET BY ity o f tablet 00:00: MOUTH [place] 00 EVERY 8 Medical HOURS Branch NEEDED econazole 2020-09 Yes [id number] Apply to [facility] nitrate 1 % -09 area(s) 2 ity of cream 00:00: (two) [place] 00 times Medical daily. Branch albuterol 2020-09 Yes [id number] 2{puff} Inhale 2 [facility] (PROAIR 1-09 Puffs ity of HFA) 90 00:00: every 6 [place] mcg/actuati 00 (six) Medical on inhaler hours as Branc h needed for Wheezing or Shortness of Breath. triamcinolo 2020-09 Yes [id number] Apply to [facility] ne 0.025 % 1-09 area(s) 3 ity of ointment 00:00: (three) [place] 00 times Medical daily. For Branch itching cyanocobala 2020-09 Yes [id number] 1000ug 1 mL by [facility] min 1,000 1-09 Intramuscu ity of mcg/mL 00:00: lar route [place] injection 00 every 2 Medical (two) Branch weeks. levothyroxi 2020-09 Yes [id number] 50ug Take 1 [facility] ne 50 mcg 1-09 tablet by ity o f tablet 00:00: mouth [place] 00 every Medical morning. Branch fluticasone 2020-09 Yes [id number] 2{puff} Inhale 2 [facility] propionate 1-09 Puffs ity of (FLOVENT 00:00: every 12 [place] HFA) 110 00 (twelve) Medical mcg/actuati hours. Branch on inhaler Rinse mouth after each use. levalbutero 2020-09 Yes [id number] .63mg Inhale [facility] l 0.63 mg/3 1-09 0.63 mg 3 ity of mL 00:00: (three) [place] nebulizer 00 times Medical solution daily as Branch needed for Wheezing or Shortness of Breath. clotrimazol 2020-09 Yes [id number] Apply to [facility] e-betametha 10-04 area(s) 2 ity of sone cream 00:00: (two) [place] 00 times Medical daily. Branch cyclobenzap 2020-09 Yes [id number] TAKE 1 [facility] rine 5 mg -09 TABLET BY ity o f tablet 00:00: MOUTH [place] 00 EVERY 8 Medical HOURS Branch NEEDED econazole 2020-09 Yes [id number] Apply to [facility] nitrate 1 % -09 area(s) 2 ity of cream 00:00: (two) [place] 00 times Medical daily. Branch albuterol 2020-09 Yes [id number] 2{puff} Inhale 2 [facility] (PROAIR 1-09 Puffs ity of HFA) 90 00:00: every 6 [place] mcg/actuati 00 (six) Medical on inhaler hours as Branc h needed for Wheezing or Shortness of Breath. triamcinolo 2020-09 Yes [id number] Apply to [facility] ne 0.025 % 1-09 area(s) 3 ity of ointment 00:00: (three) [place] 00 times Medical daily. For Branch itching cyanocobala 2020-09 Yes [id number] 1000ug 1 mL by [facility] min 1,000 1-09 Intramuscu ity of mcg/mL 00:00: lar route [place] injection 00 every 2 Medical (two) Branch weeks. levothyroxi 2020-09 Yes [id number] 50ug Take 1 [facility] ne 50 mcg 1-09 tablet by ity o f tablet 00:00: mouth [place] 00 every Medical morning. Branch fluticasone 2020-09 Yes [id number] 2{puff} Inhale 2 [facility] propionate 1-09 Puffs ity of (FLOVENT 00:00: every 12 [place] HFA) 110 00 (twelve) Medical mcg/actuati hours. Branch on inhaler Rinse mouth after each use. levalbutero 2020-09 Yes [id number] .63mg Inhale [facility] l 0.63 mg/3 1-09 0.63 mg 3 ity of mL 00:00: (three) [place] nebulizer 00 times Medical solution daily as Branch needed for Wheezing or Shortness of Breath. clotrimazol 2020-09 Yes [id number] Apply to [facility] e-betametha -09 area(s) 2 ity of sone cream 00:00: (two) [place] 00 times Medical daily. Branch cyclobenzap 2020-09 Yes [id number] TAKE 1 [facility] rine 5 mg -09 TABLET BY ity o f tablet 00:00: MOUTH [place] 00 EVERY 8 Medical HOURS Branch NEEDED econazole 2020-09 Yes [id number] Apply to [facility] nitrate 1 % -09 area(s) 2 ity of cream 00:00: (two) [place] 00 times Medical daily. Branch albuterol 2020-09 Yes [id number] 2{puff} Inhale 2 [facility] (PROAIR 1-09 Puffs ity of HFA) 90 00:00: every 6 [place] mcg/actuati 00 (six) Medical on inhaler hours as Branc h needed for Wheezing or Shortness of Breath. triamcinolo 2020-09 Yes [id number] Apply to [facility] ne 0.025 % - area(s) 3 ity of ointment 00:00: (three) [place] 00 times Medical daily. For Branch itching cyanocobala 2020-09 Yes [id number] 1000ug 1 mL by [facility] min 1,000 -09 Intramuscu ity of mcg/mL 00:00: lar route [place] injection 00 every 2 Medical (two) Branch weeks. levothyroxi 2020-09 Yes [id number] 50ug Take 1 [facility] ne 50 mcg -09 tablet by ity o f tablet 00:00: mouth [place] 00 every Medical morning. Branch fluticasone 2020-09 Yes [id number] 2{puff} Inhale 2 [facility] propionate -09 Puffs ity of (FLOVENT 00:00: every 12 [place] HFA) 110 00 (twelve) Medical mcg/actuati hours. Branch on inhaler Rinse mouth after each use. levalbutero 2020-09 Yes [id number] .63mg Inhale [facility] l 0.63 mg/3 -09 0.63 mg 3 ity of mL 00:00: (three) [place] nebulizer 00 times Medical solution daily as Branch needed for Wheezing or Shortness of Breath. clotrimazol 2020-09 Yes [id number] Apply to [facility] e-betametha 10-04 area(s) 2 ity of sone cream 00:00: (two) [place] 00 times Medical daily. Branch cyclobenzap 2020-09 Yes [id number] TAKE 1 [facility] rine 5 mg 09 TABLET BY ity o f tablet 00:00: MOUTH [place] 00 EVERY 8 Medical HOURS Branch NEEDED econazole 2020-09 Yes [id number] Apply to [facility] nitrate 1 % 09 area(s) 2 ity of cream 00:00: (two) [place] 00 times Medical daily. Branch albuterol 2020-09 Yes [id number] 2{puff} Inhale 2 [facility] (PROAIR 1-09 Puffs ity of HFA) 90 00:00: every 6 [place] mcg/actuati 00 (six) Medical on inhaler hours as Branc h needed for Wheezing or Shortness of Breath. triamcinolo 2020-09 Yes [id number] Apply to [facility] ne 0.025 % 1-09 area(s) 3 ity of ointment 00:00: (three) [place] 00 times Medical daily. For Branch itching cyanocobala 2020-09 Yes [id number] 1000ug 1 mL by [facility] min 1,000 1-09 Intramuscu ity of mcg/mL 00:00: lar route [place] injection 00 every 2 Medical (two) Branch weeks. fluticasone 2020-09 Yes [id number] 2{puff} Inhale 2 [facility] propionate 1-09 Puffs ity of (FLOVENT 00:00: every 12 [place] HFA) 110 00 (twelve) Medical mcg/actuati hours. Branch on inhaler Rinse mouth after each use. levalbutero 2020-09 Yes [id number] .63mg Inhale [facility] l 0.63 mg/3 1-09 0.63 mg 3 ity of mL 00:00: (three) [place] nebulizer 00 times Medical solution daily as Branch needed for Wheezing or Shortness of Breath. clotrimazol 2020-09 Yes [id number] Apply to [facility] e-betametha 10-04 area(s) 2 ity of sone cream 00:00: (two) [place] 00 times Medical daily. Branch cyclobenzap 2020-09 Yes [id number] TAKE 1 [facility] rine 5 mg 10-04 TABLET BY ity o f tablet 00:00: MOUTH [place] 00 EVERY 8 Medical HOURS Branch NEEDED econazole 2020-09 Yes [id number] Apply to [facility] nitrate 1 % 10-04 area(s) 2 ity of cream 00:00: (two) [place] 00 times Medical daily. Branch albuterol 2020-09 Yes [id number] 2{puff} Inhale 2 [facility] (PROAIR 1-09 Puffs ity of HFA) 90 00:00: every 6 [place] mcg/actuati 00 (six) Medical on inhaler hours as Branc h needed for Wheezing or Shortness of Breath. triamcinolo 2020-09 Yes [id number] Apply to [facility] ne 0.025 % -09 area(s) 3 ity of ointment 00:00: (three) [place] 00 times Medical daily. For Branch itching cyanocobala 2020-09 Yes [id number] 1000ug 1 mL by [facility] min 1,000 1-09 Intramuscu ity of mcg/mL 00:00: lar route [place] injection 00 every 2 Medical (two) Branch weeks. fluticasone 2020-09 Yes [id number] 2{puff} Inhale 2 [facility] propionate 1-09 Puffs ity of (FLOVENT 00:00: every 12 [place] HFA) 110 00 (twelve) Medical mcg/actuati hours. Branch on inhaler Rinse mouth after each use. levalbutero 2020-09 Yes [id number] .63mg Inhale [facility] l 0.63 mg/3 1-09 0.63 mg 3 ity of mL 00:00: (three) [place] nebulizer 00 times Medical solution daily as Branch needed for Wheezing or Shortness of Breath. clotrimazol 2020-09 Yes [id number] Apply to [facility] e-betametha -09 area(s) 2 ity of sone cream 00:00: (two) [place] 00 times Medical daily. Branch cyclobenzap 2020-09 Yes [id number] TAKE 1 [facility] rine 5 mg 10-04 TABLET BY ity o f tablet 00:00: MOUTH [place] 00 EVERY 8 Medical HOURS Branch NEEDED econazole 2020-09 Yes [id number] Apply to [facility] nitrate 1 % -09 area(s) 2 ity of cream 00:00: (two) [place] 00 times Medical daily. Branch albuterol 2020-09 Yes [id number] 2{puff} Inhale 2 [facility] (PROAIR 1-09 Puffs ity of HFA) 90 00:00: every 6 [place] mcg/actuati 00 (six) Medical on inhaler hours as Branc h needed for Wheezing or Shortness of Breath. triamcinolo 2020-09 Yes [id number] Apply to [facility] ne 0.025 % 1-09 area(s) 3 ity of ointment 00:00: (three) [place] 00 times Medical daily. For Branch itching cyanocobala 2020-09 Yes [id number] 1000ug 1 mL by [facility] min 1,000 1-09 Intramuscu ity of mcg/mL 00:00: lar route [place] injection 00 every 2 Medical (two) Branch weeks. levalbutero 2020-09 Yes [id number] .63mg Inhale [facility] l 0.63 mg/3 1-09 0.63 mg 3 ity of mL 00:00: (three) [place] nebulizer 00 times Medical solution daily as Branch needed for Wheezing or Shortness of Breath. cyclobenzap 2020-09 Yes [id number] TAKE 1 [facility] rine 5 mg 1-09 TABLET BY ity o f tablet 00:00: MOUTH [place] 00 EVERY 8 Medical HOURS Branch NEEDED albuterol 2020-09 Yes [id number] 2{puff} Inhale 2 [facility] (PROAIR 1-09 Puffs ity of HFA) 90 00:00: every 6 [place] mcg/actuati 00 (six) Medical on inhaler hours as Branc h needed for Wheezing or Shortness of Breath. cyanocobala 2020-09 Yes [id number] 1000ug 1 mL by [facility] min 1,000 1-09 Intramuscu ity of mcg/mL 00:00: lar route [place] injection 00 every 2 Medical (two) Branch weeks. levalbutero 2020-09 Yes [id number] .63mg Inhale [facility] l 0.63 mg/3 1-09 0.63 mg 3 ity of mL 00:00: (three) [place] nebulizer 00 times Medical solution daily as Branch needed for Wheezing or Shortness of Breath. cyclobenzap 2020-09 Yes [id number] TAKE 1 [facility] rine 5 mg 1-09 TABLET BY ity o f tablet 00:00: MOUTH [place] 00 EVERY 8 Medical HOURS Branch NEEDED albuterol 2020-09 Yes [id number] 2{puff} Inhale 2 [facility] (PROAIR 1-09 Puffs ity of HFA) 90 00:00: every 6 [place] mcg/actuati 00 (six) Medical on inhaler hours as Branc h needed for Wheezing or Shortness of Breath. cyanocobala 2020-09 Yes [id number] 1000ug 1 mL by [facility] min 1,000 1-09 Intramuscu ity of mcg/mL 00:00: lar route [place] injection 00 every 2 Medical (two) Branch weeks. levalbutero 2020-09 Yes [id number] .63mg Inhale [facility] l 0.63 mg/3 1-09 0.63 mg 3 ity of mL 00:00: (three) [place] nebulizer 00 times Medical solution daily as Branch needed for Wheezing or Shortness of Breath. cyclobenzap 2020-09 Yes [id number] TAKE 1 [facility] rine 5 mg 1-09 TABLET BY ity o f tablet 00:00: MOUTH [place] 00 EVERY 8 Medical HOURS Branch NEEDED albuterol 2020-09 Yes [id number] 2{puff} Inhale 2 [facility] (PROAIR 1-09 Puffs ity of HFA) 90 00:00: every 6 [place] mcg/actuati 00 (six) Medical on inhaler hours as Branc h needed for Wheezing or Shortness of Breath. cyanocobala 2020-09 Yes [id number] 1000ug 1 mL by [facility] min 1,000 1-09 Intramuscu ity of mcg/mL 00:00: lar route [place] injection 00 every 2 Medical (two) Branch weeks. levalbutero 2020-09 Yes [id number] .63mg Inhale [facility] l 0.63 mg/3 1-09 0.63 mg 3 ity of mL 00:00: (three) [place] nebulizer 00 times Medical solution daily as Branch needed for Wheezing or Shortness of Breath. cyclobenzap 2020-09 Yes [id number] TAKE 1 [facility] rine 5 mg 1-09 TABLET BY ity o f tablet 00:00: MOUTH [place] 00 EVERY 8 Medical HOURS Branch NEEDED albuterol 2020-09 Yes [id number] 2{puff} Inhale 2 [facility] (PROAIR 1-09 Puffs ity of HFA) 90 00:00: every 6 [place] mcg/actuati 00 (six) Medical on inhaler hours as Branc h needed for Wheezing or Shortness of Breath. cyanocobala 2020-09 Yes [id number] 1000ug 1 mL by [facility] min 1,000 1-09 Intramuscu ity of mcg/mL 00:00: lar route [place] injection 00 every 2 Medical (two) Branch weeks. levalbutero 2020-09 Yes [id number] .63mg Inhale [facility] l 0.63 mg/3 1-09 0.63 mg 3 ity of mL 00:00: (three) [place] nebulizer 00 times Medical solution daily as Branch needed for Wheezing or Shortness of Breath. cyclobenzap 2020-09 Yes [id number] TAKE 1 [facility] rine 5 mg 1-09 TABLET BY ity o f tablet 00:00: MOUTH [place] 00 EVERY 8 Medical HOURS Branch NEEDED albuterol 2020-09 Yes [id number] 2{puff} Inhale 2 [facility] (PROAIR 1-09 Puffs ity of HFA) 90 00:00: every 6 [place] mcg/actuati 00 (six) Medical on inhaler hours as Branc h needed for Wheezing or Shortness of Breath. cyanocobala 2020-09 Yes [id number] 1000ug 1 mL by [facility] min 1,000 1-09 Intramuscu ity of mcg/mL 00:00: lar route [place] injection 00 every 2 Medical (two) Branch weeks. levalbutero 2020-09 Yes [id number] .63mg Inhale [facility] l 0.63 mg/3 1-09 0.63 mg 3 ity of mL 00:00: (three) [place] nebulizer 00 times Medical solution daily as Branch needed for Wheezing or Shortness of Breath. cyclobenzap 2020-09 Yes [id number] TAKE 1 [facility] rine 5 mg 1-09 TABLET BY ity o f tablet 00:00: MOUTH [place] 00 EVERY 8 Medical HOURS Branch NEEDED albuterol 2020-09 Yes [id number] 2{puff} Inhale 2 [facility] (PROAIR 1-09 Puffs ity of HFA) 90 00:00: every 6 [place] mcg/actuati 00 (six) Medical on inhaler hours as Branc h needed for Wheezing or Shortness of Breath. cyanocobala 2020-09 Yes [id number] 1000ug 1 mL by [facility] min 1,000 1-09 Intramuscu ity of mcg/mL 00:00: lar route [place] injection 00 every 2 Medical (two) Branch weeks. levalbutero 2020-09 Yes [id number] .63mg Inhale [facility] l 0.63 mg/3 1-09 0.63 mg 3 ity of mL 00:00: (three) [place] nebulizer 00 times Medical solution daily as Branch needed for Wheezing or Shortness of Breath. cyclobenzap 2020-09 Yes [id number] TAKE 1 [facility] rine 5 mg 1-09 TABLET BY ity o f tablet 00:00: MOUTH [place] 00 EVERY 8 Medical HOURS Branch NEEDED albuterol 2020-09 Yes [id number] 2{puff} Inhale 2 [facility] (PROAIR 1-09 Puffs ity of HFA) 90 00:00: every 6 [place] mcg/actuati 00 (six) Medical on inhaler hours as Branc h needed for Wheezing or Shortness of Breath. cyanocobala 2020-09 Yes [id number] 1000ug 1 mL by [facility] min 1,000 1-09 Intramuscu ity of mcg/mL 00:00: lar route [place] injection 00 every 2 Medical (two) Branch weeks. levalbutero 2020-09 Yes [id number] .63mg Inhale [facility] l 0.63 mg/3 1-09 0.63 mg 3 ity of mL 00:00: (three) [place] nebulizer 00 times Medical solution daily as Branch needed for Wheezing or Shortness of Breath. cyclobenzap 2020-09 Yes [id number] TAKE 1 [facility] rine 5 mg 1-09 TABLET BY ity o f tablet 00:00: MOUTH [place] 00 EVERY 8 Medical HOURS Branch NEEDED albuterol 2020-09 Yes [id number] 2{puff} Inhale 2 [facility] (PROAIR 1-09 Puffs ity of HFA) 90 00:00: every 6 [place] mcg/actuati 00 (six) Medical on inhaler hours as Branc h needed for Wheezing or Shortness of Breath. cyanocobala 2020-09 Yes [id number] 1000ug 1 mL by [facility] min 1,000 1-09 Intramuscu ity of mcg/mL 00:00: lar route [place] injection 00 every 2 Medical (two) Branch weeks. levalbutero 2020-09 Yes [id number] .63mg Inhale [facility] l 0.63 mg/3 1-09 0.63 mg 3 ity of mL 00:00: (three) [place] nebulizer 00 times Medical solution daily as Branch needed for Wheezing or Shortness of Breath. cyclobenzap 2020-09 Yes [id number] TAKE 1 [facility] rine 5 mg 1-09 TABLET BY ity o f tablet 00:00: MOUTH [place] 00 EVERY 8 Medical HOURS Branch NEEDED albuterol 2020-09 Yes [id number] 2{puff} Inhale 2 [facility] (PROAIR 1-09 Puffs ity of HFA) 90 00:00: every 6 [place] mcg/actuati 00 (six) Medical on inhaler hours as Branc h needed for Wheezing or Shortness of Breath. rosuvastati 2020-09 Yes [id number] 10mg Take 1 [facility] n 10 mg 1-09 tablet by ity of tablet 00:00: mouth at [place] 00 bedtime. Medical Branch cyanocobala 2020-09 Yes [id number] 1000ug 1 mL by [facility] min 1,000 1-09 Intramuscu ity of mcg/mL 00:00: lar route [place] injection 00 every 2 Medical (two) Branch weeks. levothyroxi 2020-09 Yes [id number] 50ug Take 1 [facility] ne 50 mcg 1-09 tablet by ity o f tablet 00:00: mouth [place] 00 every Medical morning. Branch fluticasone 2020-09 Yes [id number] 2{puff} Inhale 2 [facility] propionate 1-09 Puffs ity of (FLOVENT 00:00: every 12 [place] HFA) 110 00 (twelve) Medical mcg/actuati hours. Branch on inhaler Rinse mouth after each use. levalbutero 2020-09 Yes [id number] .63mg Inhale [facility] l 0.63 mg/3 1-09 0.63 mg 3 ity of mL 00:00: (three) [place] nebulizer 00 times Medical solution daily as Branch needed for Wheezing or Shortness of Breath. losartan 50 2020-09 Yes [id number] 50mg Take 1 [facility] mg tablet 1-09 tablet by ity o f 00:00: mouth 2 [place] 00 (two) Medical times Branch daily. clotrimazol 2020-09 Yes [id number] Apply to [facility] e-betametha -09 area(s) 2 ity of sone cream 00:00: (two) [place] 00 times Medical daily. Branch cyclobenzap 2020-09 Yes [id number] TAKE 1 [facility] rine 5 mg 1-09 TABLET BY ity o f tablet 00:00: MOUTH [place] 00 EVERY 8 Medical HOURS Branch NEEDED econazole 2020-09 Yes [id number] Apply to [facility] nitrate 1 % 1-09 area(s) 2 ity of cream 00:00: (two) [place] 00 times Medical daily. Branch albuterol 2020-09 Yes [id number] 2{puff} Inhale 2 [facility] (PROAIR 1-09 Puffs ity of HFA) 90 00:00: every 6 [place] mcg/actuati 00 (six) Medical on inhaler hours as Branc h needed for Wheezing or Shortness of Breath. triamcinolo 2020-09 Yes [id number] Apply to [facility] ne 0.025 % 09 area(s) 3 ity of ointment 00:00: (three) [place] 00 times Medical daily. For Branch itching diltiazem 2020-09 Yes [id number] 120mg Take 1 [facility] (CARTIA XT) -09 capsule by it y of 120 mg 24 00:00: mouth 2 [place] hr capsule 00 (two) Medical times Branch daily. rosuvastati 2020-09 Yes [id number] 10mg Take 1 [facility] n 10 mg -09 tablet by ity of tablet 00:00: mouth at [place] 00 bedtime. Medical Branch cyanocobala 2020-09 Yes [id number] 1000ug 1 mL by [facility] min 1,000 -09 Intramuscu ity of mcg/mL 00:00: lar route [place] injection 00 every 2 Medical (two) Branch weeks. levothyroxi 2020-09 Yes [id number] 50ug Take 1 [facility] ne 50 mcg 10-04 tablet by ity o f tablet 00:00: mouth [place] 00 every Medical morning. Branch fluticasone 2020-09 Yes [id number] 2{puff} Inhale 2 [facility] propionate -09 Puffs ity of (FLOVENT 00:00: every 12 [place] HFA) 110 00 (twelve) Medical mcg/actuati hours. Branch on inhaler Rinse mouth after each use. levalbutero 2020-09 Yes [id number] .63mg Inhale [facility] l 0.63 mg/3 1-09 0.63 mg 3 ity of mL 00:00: (three) [place] nebulizer 00 times Medical solution daily as Branch needed for Wheezing or Shortness of Breath. losartan 50 2020-09 Yes [id number] 50mg Take 1 [facility] mg tablet 09 tablet by ity o f 00:00: mouth 2 [place] 00 (two) Medical times Branch daily. clotrimazol 2020-09 Yes [id number] Apply to [facility] e-betametha 09 area(s) 2 ity of sone cream 00:00: (two) [place] 00 times Medical daily. Branch cyclobenzap 2020-09 Yes [id number] TAKE 1 [facility] rine 5 mg 1-09 TABLET BY ity o f tablet 00:00: MOUTH [place] 00 EVERY 8 Medical HOURS Branch NEEDED econazole 2020-09 Yes [id number] Apply to [facility] nitrate 1 % -09 area(s) 2 ity of cream 00:00: (two) [place] 00 times Medical daily. Branch albuterol 2020-09 Yes [id number] 2{puff} Inhale 2 [facility] (PROAIR 1-09 Puffs ity of HFA) 90 00:00: every 6 [place] mcg/actuati 00 (six) Medical on inhaler hours as Branc h needed for Wheezing or Shortness of Breath. triamcinolo 2020-09 Yes [id number] Apply to [facility] ne 0.025 % 10-04 area(s) 3 ity of ointment 00:00: (three) [place] 00 times Medical daily. For Branch itching diltiazem 2020-09 Yes [id number] 120mg Take 1 [facility] (CARTIA XT) 10-04 capsule by it y of 120 mg 24 00:00: mouth 2 [place] hr capsule 00 (two) Medical times Branch daily. cyanocobala 2020-09 Yes [id number] 1000ug 1 mL by [facility] min 1,000 -09 Intramuscu ity of mcg/mL 00:00: lar route [place] injection 00 every 2 Medical (two) Branch weeks. levothyroxi 2020-09 Yes [id number] 50ug Take 1 [facility] ne 50 mcg -09 tablet by ity o f tablet 00:00: mouth [place] 00 every Medical morning. Branch fluticasone 2020-09 Yes [id number] 2{puff} Inhale 2 [facility] propionate 1-09 Puffs ity of (FLOVENT 00:00: every 12 [place] HFA) 110 00 (twelve) Medical mcg/actuati hours. Branch on inhaler Rinse mouth after each use. levalbutero 2020-09 Yes [id number] .63mg Inhale [facility] l 0.63 mg/3 1-09 0.63 mg 3 ity of mL 00:00: (three) [place] nebulizer 00 times Medical solution daily as Branch needed for Wheezing or Shortness of Breath. losartan 50 2020-09 Yes [id number] 50mg Take 1 [facility] mg tablet -09 tablet by ity o f 00:00: mouth 2 [place] 00 (two) Medical times Branch daily. clotrimazol 2020-09 Yes [id number] Apply to [facility] e-betametha 1-09 area(s) 2 ity of sone cream 00:00: (two) [place] 00 times Medical daily. Branch cyclobenzap 2020-09 Yes [id number] TAKE 1 [facility] rine 5 mg -09 TABLET BY ity o f tablet 00:00: MOUTH [place] 00 EVERY 8 Medical HOURS Branch NEEDED econazole 2020-09 Yes [id number] Apply to [facility] nitrate 1 % 09 area(s) 2 ity of cream 00:00: (two) [place] 00 times Medical daily. Branch albuterol 2020-09 Yes [id number] 2{puff} Inhale 2 [facility] (PROAIR 1-09 Puffs ity of HFA) 90 00:00: every 6 [place] mcg/actuati 00 (six) Medical on inhaler hours as Branc h needed for Wheezing or Shortness of Breath. triamcinolo 2020-09 Yes [id number] Apply to [facility] ne 0.025 % 10-04 area(s) 3 ity of ointment 00:00: (three) [place] 00 times Medical daily. For Branch itching diltiazem 2020-09 Yes [id number] 120mg Take 1 [facility] (CARTIA XT) 09 capsule by it y of 120 mg 24 00:00: mouth 2 [place] hr capsule 00 (two) Medical times Branch daily. cyanocobala 2020-09 Yes [id number] 1000ug 1 mL by [facility] min 1,000 -09 Intramuscu ity of mcg/mL 00:00: lar route [place] injection 00 every 2 Medical (two) Branch weeks. levothyroxi 2020-09 Yes [id number] 50ug Take 1 [facility] ne 50 mcg 09 tablet by ity o f tablet 00:00: mouth [place] 00 every Medical morning. Branch fluticasone 2020-09 Yes [id number] 2{puff} Inhale 2 [facility] propionate 1-09 Puffs ity of (FLOVENT 00:00: every 12 [place] HFA) 110 00 (twelve) Medical mcg/actuati hours. Branch on inhaler Rinse mouth after each use. levalbutero 2020-09 Yes [id number] .63mg Inhale [facility] l 0.63 mg/3 1-09 0.63 mg 3 ity of mL 00:00: (three) [place] nebulizer 00 times Medical solution daily as Branch needed for Wheezing or Shortness of Breath. losartan 50 2020-09 Yes [id number] 50mg Take 1 [facility] mg tablet 1-09 tablet by ity o f 00:00: mouth 2 [place] 00 (two) Medical times Branch daily. clotrimazol 2020-09 Yes [id number] Apply to [facility] e-betametha 09 area(s) 2 ity of sone cream 00:00: (two) [place] 00 times Medical daily. Branch cyclobenzap 2020-09 Yes [id number] TAKE 1 [facility] rine 5 mg -09 TABLET BY ity o f tablet 00:00: MOUTH [place] 00 EVERY 8 Medical HOURS Branch NEEDED econazole 2020-09 Yes [id number] Apply to [facility] nitrate 1 % 10-04 area(s) 2 ity of cream 00:00: (two) [place] 00 times Medical daily. Branch albuterol 2020-09 Yes [id number] 2{puff} Inhale 2 [facility] (PROAIR 1-09 Puffs ity of HFA) 90 00:00: every 6 [place] mcg/actuati 00 (six) Medical on inhaler hours as Branc h needed for Wheezing or Shortness of Breath. triamcinolo 2020-09 Yes [id number] Apply to [facility] ne 0.025 % 10-04 area(s) 3 ity of ointment 00:00: (three) [place] 00 times Medical daily. For Branch itching diltiazem 2020-09 Yes [id number] 120mg Take 1 [facility] (CARTIA XT) 09 capsule by it y of 120 mg 24 00:00: mouth 2 [place] hr capsule 00 (two) Medical times Branch daily. cyanocobala 2020-09 Yes [id number] 1000ug 1 mL by [facility] min 1,000 -09 Intramuscu ity of mcg/mL 00:00: lar route [place] injection 00 every 2 Medical (two) Branch weeks. levothyroxi 2020-09 Yes [id number] 50ug Take 1 [facility] ne 50 mcg -09 tablet by ity o f tablet 00:00: mouth [place] 00 every Medical morning. Branch fluticasone 2020-09 Yes [id number] 2{puff} Inhale 2 [facility] propionate 1-09 Puffs ity of (FLOVENT 00:00: every 12 [place] HFA) 110 00 (twelve) Medical mcg/actuati hours. Branch on inhaler Rinse mouth after each use. levalbutero 2020-09 Yes [id number] .63mg Inhale [facility] l 0.63 mg/3 1-09 0.63 mg 3 ity of mL 00:00: (three) [place] nebulizer 00 times Medical solution daily as Branch needed for Wheezing or Shortness of Breath. losartan 50 2020-09 Yes [id number] 50mg Take 1 [facility] mg tablet -09 tablet by ity o f 00:00: mouth 2 [place] 00 (two) Medical times Branch daily. clotrimazol 2020-09 Yes [id number] Apply to [facility] e-betametha 09 area(s) 2 ity of sone cream 00:00: (two) [place] 00 times Medical daily. Branch cyclobenzap 2020-09 Yes [id number] TAKE 1 [facility] rine 5 mg 10-04 TABLET BY ity o f tablet 00:00: MOUTH [place] 00 EVERY 8 Medical HOURS Branch NEEDED econazole 2020-09 Yes [id number] Apply to [facility] nitrate 1 % 10-04 area(s) 2 ity of cream 00:00: (two) [place] 00 times Medical daily. Branch albuterol 2020-09 Yes [id number] 2{puff} Inhale 2 [facility] (PROAIR 1-09 Puffs ity of HFA) 90 00:00: every 6 [place] mcg/actuati 00 (six) Medical on inhaler hours as Branc h needed for Wheezing or Shortness of Breath. triamcinolo 2020-09 Yes [id number] Apply to [facility] ne 0.025 % 10-04 area(s) 3 ity of ointment 00:00: (three) [place] 00 times Medical daily. For Branch itching diltiazem 2020-09 Yes [id number] 120mg Take 1 [facility] (CARTIA XT) -09 capsule by it y of 120 mg 24 00:00: mouth 2 [place] hr capsule 00 (two) Medical times Branch daily. cyanocobala 2020-09 Yes [id number] 1000ug 1 mL by [facility] min 1,000 -09 Intramuscu ity of mcg/mL 00:00: lar route [place] injection 00 every 2 Medical (two) Branch weeks. levothyroxi 2020-09 Yes [id number] 50ug Take 1 [facility] ne 50 mcg 1-09 tablet by ity o f tablet 00:00: mouth [place] 00 every Medical morning. Branch fluticasone 2020-09 Yes [id number] 2{puff} Inhale 2 [facility] propionate 1-09 Puffs ity of (FLOVENT 00:00: every 12 [place] HFA) 110 00 (twelve) Medical mcg/actuati hours. Branch on inhaler Rinse mouth after each use. levalbutero 2020-09 Yes [id number] .63mg Inhale [facility] l 0.63 mg/3 1-09 0.63 mg 3 ity of mL 00:00: (three) [place] nebulizer 00 times Medical solution daily as Branch needed for Wheezing or Shortness of Breath. losartan 50 2020-09 Yes [id number] 50mg Take 1 [facility] mg tablet 1-09 tablet by ity o f 00:00: mouth 2 [place] 00 (two) Medical times Branch daily. clotrimazol 2020-09 Yes [id number] Apply to [facility] e-betametha -09 area(s) 2 ity of sone cream 00:00: (two) [place] 00 times Medical daily. Branch cyclobenzap 2020-09 Yes [id number] TAKE 1 [facility] rine 5 mg 1-09 TABLET BY ity o f tablet 00:00: MOUTH [place] 00 EVERY 8 Medical HOURS Branch NEEDED econazole 2020-09 Yes [id number] Apply to [facility] nitrate 1 % 09 area(s) 2 ity of cream 00:00: (two) [place] 00 times Medical daily. Branch albuterol 2020-09 Yes [id number] 2{puff} Inhale 2 [facility] (PROAIR 1-09 Puffs ity of HFA) 90 00:00: every 6 [place] mcg/actuati 00 (six) Medical on inhaler hours as Branc h needed for Wheezing or Shortness of Breath. triamcinolo 2020-09 Yes [id number] Apply to [facility] ne 0.025 % -09 area(s) 3 ity of ointment 00:00: (three) [place] 00 times Medical daily. For Branch itching diltiazem 2020-09 Yes [id number] 120mg Take 1 [facility] (CARTIA XT) -09 capsule by it y of 120 mg 24 00:00: mouth 2 [place] hr capsule 00 (two) Medical times Branch daily. cyanocobala 2020-09 Yes [id number] 1000ug 1 mL by [facility] min 1,000 1-09 Intramuscu ity of mcg/mL 00:00: lar route [place] injection 00 every 2 Medical (two) Branch weeks. levothyroxi 2020-09 Yes [id number] 50ug Take 1 [facility] ne 50 mcg 1-09 tablet by ity o f tablet 00:00: mouth [place] 00 every Medical morning. Branch fluticasone 2020-09 Yes [id number] 2{puff} Inhale 2 [facility] propionate 1-09 Puffs ity of (FLOVENT 00:00: every 12 [place] HFA) 110 00 (twelve) Medical mcg/actuati hours. Branch on inhaler Rinse mouth after each use. levalbutero 2020-09 Yes [id number] .63mg Inhale [facility] l 0.63 mg/3 1-09 0.63 mg 3 ity of mL 00:00: (three) [place] nebulizer 00 times Medical solution daily as Branch needed for Wheezing or Shortness of Breath. losartan 50 2020-09 Yes [id number] 50mg Take 1 [facility] mg tablet 1-09 tablet by ity o f 00:00: mouth 2 [place] 00 (two) Medical times Branch daily. clotrimazol 2020-09 Yes [id number] Apply to [facility] e-betametha -09 area(s) 2 ity of sone cream 00:00: (two) [place] 00 times Medical daily. Branch cyclobenzap 2020-09 Yes [id number] TAKE 1 [facility] rine 5 mg 1-09 TABLET BY ity o f tablet 00:00: MOUTH [place] 00 EVERY 8 Medical HOURS Branch NEEDED econazole 2020-09 Yes [id number] Apply to [facility] nitrate 1 % 1-09 area(s) 2 ity of cream 00:00: (two) [place] 00 times Medical daily. Branch albuterol 2020-09 Yes [id number] 2{puff} Inhale 2 [facility] (PROAIR 1-09 Puffs ity of HFA) 90 00:00: every 6 [place] mcg/actuati 00 (six) Medical on inhaler hours as Branc h needed for Wheezing or Shortness of Breath. triamcinolo 2020-09 Yes [id number] Apply to [facility] ne 0.025 % 1-09 area(s) 3 ity of ointment 00:00: (three) [place] 00 times Medical daily. For Branch itching diltiazem 2020-09 Yes [id number] 120mg Take 1 [facility] (CARTIA XT) 09 capsule by it y of 120 mg 24 00:00: mouth 2 [place] hr capsule 00 (two) Medical times Branch daily. cyanocobala 2020-09 Yes [id number] 1000ug 1 mL by [facility] min 1,000 -09 Intramuscu ity of mcg/mL 00:00: lar route [place] injection 00 every 2 Medical (two) Branch weeks. levothyroxi 2020-09 Yes [id number] 50ug Take 1 [facility] ne 50 mcg 09 tablet by ity o f tablet 00:00: mouth [place] 00 every Medical morning. Branch fluticasone 2020-09 Yes [id number] 2{puff} Inhale 2 [facility] propionate -09 Puffs ity of (FLOVENT 00:00: every 12 [place] HFA) 110 00 (twelve) Medical mcg/actuati hours. Branch on inhaler Rinse mouth after each use. levalbutero 2020-09 Yes [id number] .63mg Inhale [facility] l 0.63 mg/3 -09 0.63 mg 3 ity of mL 00:00: (three) [place] nebulizer 00 times Medical solution daily as Branch needed for Wheezing or Shortness of Breath. losartan 50 2020-09 Yes [id number] 50mg Take 1 [facility] mg tablet -09 tablet by ity o f 00:00: mouth 2 [place] 00 (two) Medical times Branch daily. clotrimazol 2020-09 Yes [id number] Apply to [facility] e-betametha 09 area(s) 2 ity of sone cream 00:00: (two) [place] 00 times Medical daily. Branch cyclobenzap 2020-09 Yes [id number] TAKE 1 [facility] rine 5 mg -09 TABLET BY ity o f tablet 00:00: MOUTH [place] 00 EVERY 8 Medical HOURS Branch NEEDED econazole 2020-09 Yes [id number] Apply to [facility] nitrate 1 % 09 area(s) 2 ity of cream 00:00: (two) [place] 00 times Medical daily. Branch albuterol 2020-09 Yes [id number] 2{puff} Inhale 2 [facility] (PROAIR 1-09 Puffs ity of HFA) 90 00:00: every 6 [place] mcg/actuati 00 (six) Medical on inhaler hours as Branc h needed for Wheezing or Shortness of Breath. triamcinolo 2020-09 Yes [id number] Apply to [facility] ne 0.025 % 09 area(s) 3 ity of ointment 00:00: (three) [place] 00 times Medical daily. For Branch itching diltiazem 2020-09 Yes [id number] 120mg Take 1 [facility] (CARTIA XT) 09 capsule by it y of 120 mg 24 00:00: mouth 2 [place] hr capsule 00 (two) Medical times Branch daily. cyanocobala 2020-09 Yes [id number] 1000ug 1 mL by [facility] min 1,000 -09 Intramuscu ity of mcg/mL 00:00: lar route [place] injection 00 every 2 Medical (two) Branch weeks. levothyroxi 2020-09 Yes [id number] 50ug Take 1 [facility] ne 50 mcg 09 tablet by ity o f tablet 00:00: mouth [place] 00 every Medical morning. Branch fluticasone 2020-09 Yes [id number] 2{puff} Inhale 2 [facility] propionate 1-09 Puffs ity of (FLOVENT 00:00: every 12 [place] HFA) 110 00 (twelve) Medical mcg/actuati hours. Branch on inhaler Rinse mouth after each use. levalbutero 2020-09 Yes [id number] .63mg Inhale [facility] l 0.63 mg/3 1-09 0.63 mg 3 ity of mL 00:00: (three) [place] nebulizer 00 times Medical solution daily as Branch needed for Wheezing or Shortness of Breath. losartan 50 2020-09 Yes [id number] 50mg Take 1 [facility] mg tablet -09 tablet by ity o f 00:00: mouth 2 [place] 00 (two) Medical times Branch daily. clotrimazol 2020-09 Yes [id number] Apply to [facility] e-betametha 09 area(s) 2 ity of sone cream 00:00: (two) [place] 00 times Medical daily. Branch cyclobenzap 2020-09 Yes [id number] TAKE 1 [facility] rine 5 mg -09 TABLET BY ity o f tablet 00:00: MOUTH [place] 00 EVERY 8 Medical HOURS Branch NEEDED econazole 2020-09 Yes [id number] Apply to [facility] nitrate 1 % 1-09 area(s) 2 ity of cream 00:00: (two) [place] 00 times Medical daily. Branch albuterol 2020-09 Yes [id number] 2{puff} Inhale 2 [facility] (PROAIR 1-09 Puffs ity of HFA) 90 00:00: every 6 [place] mcg/actuati 00 (six) Medical on inhaler hours as Branc h needed for Wheezing or Shortness of Breath. triamcinolo 2020-09 Yes [id number] Apply to [facility] ne 0.025 % 1-09 area(s) 3 ity of ointment 00:00: (three) [place] 00 times Medical daily. For Branch itching diltiazem 2020-09 Yes [id number] 120mg Take 1 [facility] n[facility] (CARTIA XT) 1-09 capsule by it y of 120 mg 24 00:00: mouth 2 [place] hr capsule 00 (two) Medical times Branch daily. cyanocobala 2020-09 Yes [id number] 1000ug 1 mL by [facility] min 1,000 1-09 Intramuscu ity of mcg/mL 00:00: lar route [place] injection 00 every 2 Medical (two) Branch weeks. levothyroxi 2020-09 Yes [id number] 50ug Take 1 [facility] ne 50 mcg 1-09 tablet by ity o f tablet 00:00: mouth [place] 00 every Medical morning. Branch fluticasone 2020-09 Yes [id number] 2{puff} Inhale 2 [facility] propionate 1-09 Puffs ity of (FLOVENT 00:00: every 12 [place] HFA) 110 00 (twelve) Medical mcg/actuati hours. Branch on inhaler Rinse mouth after each use. levalbutero 2020-09 Yes [id number] .63mg Inhale [facility] l 0.63 mg/3 1-09 0.63 mg 3 ity of mL 00:00: (three) [place] nebulizer 00 times Medical solution daily as Branch needed for Wheezing or Shortness of Breath. losartan 50 2020-09 Yes [id number] 50mg Take 1 [facility] mg tablet 1-09 tablet by ity o f 00:00: mouth 2 [place] 00 (two) Medical times Branch daily. clotrimazol 2020-09 Yes [id number] Apply to [facility] e-betametha 10-04 area(s) 2 ity of sone cream 00:00: (two) [place] 00 times Medical daily. Branch cyclobenzap 2020-09 Yes [id number] TAKE 1 [facility] rine 5 mg -09 TABLET BY ity o f tablet 00:00: MOUTH [place] 00 EVERY 8 Medical HOURS Branch NEEDED econazole 2020-09 Yes [id number] Apply to [facility] nitrate 1 % 10-04 area(s) 2 ity of cream 00:00: (two) [place] 00 times Medical daily. Branch albuterol 2020-09 Yes [id number] 2{puff} Inhale 2 [facility] (PROAIR 1-09 Puffs ity of HFA) 90 00:00: every 6 [place] mcg/actuati 00 (six) Medical on inhaler hours as Branc h needed for Wheezing or Shortness of Breath. triamcinolo 2020-09 Yes [id number] Apply to [facility] ne 0.025 % 10-04 area(s) 3 ity of ointment 00:00: (three) [place] 00 times Medical daily. For Branch itching diltiazem 2020-09 Yes [id number] 120mg Take 1 [facility] (CARTIA XT) 10-04 capsule by it y of 120 mg 24 00:00: mouth 2 [place] hr capsule 00 (two) Medical times Branch daily. cyanocobala 2020-09 Yes [id number] 1000ug 1 mL by [facility] min 1,000 -09 Intramuscu ity of mcg/mL 00:00: lar route [place] injection 00 every 2 Medical (two) Branch weeks. levothyroxi 2020-09 Yes [id number] 50ug Take 1 [facility] ne 50 mcg -09 tablet by ity o f tablet 00:00: mouth [place] 00 every Medical morning. Branch fluticasone 2020-09 Yes [id number] 2{puff} Inhale 2 [facility] propionate 1-09 Puffs ity of (FLOVENT 00:00: every 12 [place] HFA) 110 00 (twelve) Medical mcg/actuati hours. Branch on inhaler Rinse mouth after each use. levalbutero 2020-09 Yes [id number] .63mg Inhale [facility] l 0.63 mg/3 1-09 0.63 mg 3 ity of mL 00:00: (three) [place] nebulizer 00 times Medical solution daily as Branch needed for Wheezing or Shortness of Breath. losartan 50 2020-09 Yes [id number] 50mg Take 1 [facility] mg tablet 10-04 tablet by ity o f 00:00: mouth 2 [place] 00 (two) Medical times Branch daily. clotrimazol 2020-09 Yes [id number] Apply to [facility] e-betametha 10-04 area(s) 2 ity of sone cream 00:00: (two) [place] 00 times Medical daily. Branch cyclobenzap 2020-09 Yes [id number] TAKE 1 [facility] rine 5 mg 10-04 TABLET BY ity o f tablet 00:00: MOUTH [place] 00 EVERY 8 Medical HOURS Branch NEEDED econazole 2020-09 Yes [id number] Apply to [facility] nitrate 1 % 10-04 area(s) 2 ity of cream 00:00: (two) [place] 00 times Medical daily. Branch albuterol 2020-09 Yes [id number] 2{puff} Inhale 2 [facility] (PROAIR 10-04 Puffs ity of HFA) 90 00:00: every 6 [place] mcg/actuati 00 (six) Medical on inhaler hours as Branc h needed for Wheezing or Shortness of Breath. triamcinolo 2020-09 Yes [id number] Apply to [facility] ne 0.025 % 10-04 area(s) 3 ity of ointment 00:00: (three) [place] 00 times Medical daily. For Branch itching diltiazem 2020-09 Yes [id number] 120mg Take 1 [facility] (CARTIA XT) 10-04 capsule by it y of 120 mg 24 00:00: mouth 2 [place] hr capsule 00 (two) Medical times Branch daily. fluticasone 2020-09- No [id number] 2{puff} Inhale 2 [facility] propionate 10-04 Puffs ity of (FLOVENT 00:00: 00:00 every 12 [place] HFA) 110 00 :00 (twelve) Medical mcg/actuati hours. Branch on inhaler Rinse mouth after each use. clotrimazol 2020-09- No [id number] Apply to [facility] e-betametha 10-04 area(s) 2 it y of sone cream 00:00: 00:00 (two) [place] 00 :00 times Medical daily. Branch econazole 2020-09- No [id number] Apply to [facility] nitrate 1 % 10-04 area(s) 2 it y of cream 00:00: 00:00 (two) [place] 00 :00 times Medical daily. Branch triamcinolo 2020-09- No [id number] Apply to [facility] ne 0.025 % 10-04 area(s) 3 ity of ointment 00:00: 00:00 (three) [place] 00 :00 times Medical daily. For Branch itching fluticasone 2020-09- No [id number] 2{puff} Inhale 2 [facility] propionate 10-04 Puffs ity of (FLOVENT 00:00: 00:00 every 12 [place] HFA[place] 110 00 :00 (twelve) Medical mcg/actuati hours. Branch on inhaler Rinse mouth after each use. clotrimazol 2020-09- No [id number] Apply to [facility] e-betametha 10-04 area(s) 2 it y of sone cream 00:00: 00:00 (two) [place] 00 :00 times Medical daily. Branch econazole 2020-09- No [id number] Apply to [facility] nitrate 1 % 10-04 area(s) 2 it y of cream 00:00: 00:00 (two) [place] 00 :00 times Medical daily. Branch triamcinolo 2020-09- No [id number] Apply to [facility] ne 0.025 % 10-04 area(s) 3 ity of ointment 00:00: 00:00 (three) [place] 00 :00 times Medical daily. For Branch itching levothyroxi 2020-09- No [id number] 50ug Take 1 [facility] ne 50 mcg 10-04 tablet by ity of tablet 00:00: 00:00 mouth [place] 00 :00 every Medical morning. Branch losartan 50 2020-09- No [id number] 50mg Take 1 [facility] mg tablet 10-0420 tablet by ity of 00:00: 00:00 mouth 2 [place] 00 :00 (two) Medical times Branch daily. diltiazem 2020-09- No [id number] 120mg Take 1 [facility] (CARTIA XT) 10-04 07-20 capsule by i ty of 120 mg 24 00:00: 00:00 mouth 2 [place] hr capsule 00 :00 (two) Medical times Branch daily. rosuvastati 2020-09- No [id number] 10mg Take 1 [facility] n 10 mg 10-0408 tablet by ity of tablet 00:00: 00:00 mouth at [place] 00 :00 bedtime. Medical Branch rosuvastati 2020-09- No [id number] 10mg Take 1 [facility] n 10 mg 10-04 tablet by ity of tablet 00:00: 00:00 mouth at [place] 00 :00 bedtime. Medical Branch proMETHazin 2019-09 [...] [place] 00 Medical Branch FERROUS 20180 Yes [id number] TAKE ONE [facility] vers SULFATE 325 8-13 TABLET BY ity of mg (65 mg 00:00: MOUTH [place] iron) 00 THREE Medical tablet TIMES Branch DAILY WITH MEALS FERROUS Yes [id number] TAKE ONE [facility] vers SULFATE 325 8-13 TABLET BY ity of mg (65 mg 00:00: MOUTH [place] iron) 00 THREE Medical tablet TIMES Branch DAILY WITH MEALS FERROUS Yes [id number] TAKE ONE [facility] vers SULFATE 325 8-13 TABLET BY ity of mg (65 mg 00:00: MOUTH [place] iron) 00 THREE Medical tablet TIMES Branch DAILY WITH MEALS FERROUS Yes [id number] TAKE ONE [facility] vers SULFATE 325 8-13 TABLET BY ity of mg (65 mg 00:00: MOUTH [place] iron) 00 THREE Medical tablet TIMES Branch DAILY WITH MEALS FERROUS Yes [id number] TAKE ONE [facility] vers SULFATE 325 8-13 TABLET BY ity of mg (65 mg 00:00: MOUTH [place] iron) 00 THREE Medical tablet TIMES Branch DAILY WITH MEALS FERROUS Yes [id number] TAKE ONE [facility] vers SULFATE 325 8-13 TABLET BY ity of mg (65 mg 00:00: MOUTH [place] iron) 00 THREE Medical tablet TIMES Branch DAILY WITH MEALS FERROUS Yes [id number] TAKE ONE [facility] vers SULFATE 325 8-13 TABLET BY ity of mg (65 mg 00:00: MOUTH [place] iron) 00 THREE Medical tablet TIMES Branch DAILY WITH MEALS FERROUS Yes [id number] TAKE ONE [facility] vers SULFATE 325 8-13 TABLET BY ity of mg (65 mg 00:00: MOUTH [place] iron) 00 THREE Medical tablet TIMES Branch DAILY WITH MEALS FERROUS Yes [id number] TAKE ONE [facility] vers SULFATE 325 8-13 TABLET BY ity of mg (65 mg 00:00: MOUTH [place] iron) 00 THREE Medical tablet TIMES Branch DAILY WITH MEALS FERROUS Yes [id number] TAKE ONE [facility] vers SULFATE 325 8-13 TABLET BY ity of mg (65 mg 00:00: MOUTH [place] iron) 00 THREE Medical tablet TIMES Branch DAILY WITH MEALS FERROUS Yes [id number] TAKE ONE [facility] vers SULFATE 325 8-13 TABLET BY ity of mg (65 mg 00:00: MOUTH [place] iron) 00 THREE Medical tablet TIMES Branch DAILY WITH MEALS FERROUS Yes [id number] TAKE ONE [facility] vers SULFATE 325 8-13 TABLET BY ity of mg (65 mg 00:00: MOUTH [place] iron) 00 THREE Medical tablet TIMES Branch DAILY WITH MEALS FERROUS Yes [id number] TAKE ONE [facility] vers SULFATE 325 8-13 TABLET BY ity of mg (65 mg 00:00: MOUTH [place] iron) 00 THREE Medical tablet TIMES Branch DAILY WITH MEALS FERROUS Yes [id number] TAKE ONE [facility] vers SULFATE 325 8-13 TABLET BY ity of mg (65 mg 00:00: MOUTH [place] iron) 00 THREE Medical tablet TIMES Branch DAILY WITH MEALS FERROUS Yes [id number] TAKE ONE [facility] vers SULFATE 325 8-13 TABLET BY ity of mg (65 mg 00:00: MOUTH [place] iron) 00 THREE Medical tablet TIMES Branch DAILY WITH MEALS FERROUS Yes [id number] TAKE ONE [facility] vers SULFATE 325 8-13 TABLET BY ity of mg (65 mg 00:00: MOUTH [place] iron) 00 THREE Medical tablet TIMES Branch DAILY WITH MEALS FERROUS Yes [id number] TAKE ONE [facility] vers SULFATE 325 8-13 TABLET BY ity of mg (65 mg 00:00: MOUTH [place] iron) 00 THREE Medical tablet TIMES Branch DAILY WITH MEALS FERROUS Yes [id number] TAKE ONE [facility] vers SULFATE 325 8-13 TABLET BY ity of mg (65 mg 00:00: MOUTH [place] iron) 00 THREE Medical tablet TIMES Branch DAILY WITH MEALS FERROUS Yes [id number] TAKE ONE [facility] SULFATE 325 8-13 TABLET BY ity of mg (65 mg 00:00: MOUTH [place] iron) 00 THREE Medical tablet TIMES Branch DAILY WITH MEALS FERROUS Yes [id number] TAKE ONE [facility] vers SULFATE 325 8-13 TABLET BY ity of mg (65 mg 00:00: MOUTH [place] iron) 00 THREE Medical tablet TIMES Branch DAILY WITH MEALS FERROUS Yes [id number] TAKE ONE [facility] SULFATE 325 8-13 TABLET BY ity of mg (65 mg 00:00: MOUTH [place] iron) 00 THREE Medical tablet TIMES Branch DAILY WITH MEALS FERROUS Yes [id number] TAKE ONE [facility] SULFATE 325 8-13 TABLET BY ity of mg (65 mg 00:00: MOUTH [place] iron) 00 THREE Medical tablet TIMES Branch DAILY WITH MEALS FERROUS Yes [id number] TAKE ONE [facility] vers SULFATE 325 8-13 TABLET BY ity of mg (65 mg 00:00: MOUTH [place] iron) 00 THREE Medical tablet TIMES Branch DAILY WITH MEALS FERROUS Yes [id number] TAKE ONE [facility] vers SULFATE 325 8-13 TABLET BY ity of mg (65 mg 00:00: MOUTH [place] iron) 00 THREE Medical tablet TIMES Branch DAILY WITH MEALS FERROUS Yes [id number] TAKE ONE [facility] vers SULFATE 325 8-13 TABLET BY ity of mg (65 mg 00:00: MOUTH [place] iron) 00 THREE Medical tablet TIMES Branch DAILY WITH MEALS FERROUS Yes [id number] TAKE ONE [facility] vers SULFATE 325 8-13 TABLET BY ity of mg (65 mg 00:00: MOUTH [place] iron) 00 THREE Medical tablet TIMES Branch DAILY WITH MEALS FERROUS Yes [id number] TAKE ONE [facility] vers SULFATE 325 8-13 TABLET BY ity of mg (65 mg 00:00: MOUTH [place] iron) 00 THREE Medical tablet TIMES Branch DAILY WITH MEALS FERROUS Yes [id number] TAKE ONE [facility] vers SULFATE 325 8-13 TABLET BY ity of mg (65 mg 00:00: MOUTH [place] iron) 00 THREE Medical tablet TIMES Branch DAILY WITH MEALS FERROUS Yes [id number] TAKE ONE [facility] vers SULFATE 325 8-13 TABLET BY ity of mg (65 mg 00:00: MOUTH [place] iron) 00 THREE Medical tablet TIMES Branch DAILY WITH MEALS FERROUS Yes [id number] TAKE ONE [facility] vers SULFATE 325 8-13 TABLET BY ity of mg (65 mg 00:00: MOUTH [place] iron) 00 THREE Medical tablet TIMES Branch DAILY WITH MEALS FERROUS Yes [id number] TAKE ONE [facility] vers SULFATE 325 8-13 TABLET BY ity of mg (65 mg 00:00: MOUTH [place] iron) 00 THREE Medical tablet TIMES Branch DAILY WITH MEALS FERROUS Yes [id number] TAKE ONE [facility] SULFATE 325 8-13 TABLET BY ity of mg (65 mg 00:00: MOUTH [place] iron) 00 THREE Medical tablet TIMES Branch DAILY WITH MEALS FERROUS Yes [id number] TAKE ONE [facility] vers SULFATE 325 8-13 TABLET BY ity of mg (65 mg 00:00: MOUTH [place] iron) 00 THREE Medical tablet TIMES Branch DAILY WITH MEALS FERROUS Yes [id number] TAKE ONE [facility] vers SULFATE 325 8-13 TABLET BY ity of mg (65 mg 00:00: MOUTH [place] iron) 00 THREE Medical tablet TIMES Branch DAILY WITH MEALS FERROUS Yes [id number] TAKE ONE [facility] vers SULFATE 325 8-13 TABLET BY ity of mg (65 mg 00:00: MOUTH [place] iron) 00 THREE Medical tablet TIMES Branch DAILY WITH MEALS FERROUS Yes [id number] TAKE ONE [facility] vers SULFATE 325 8-13 TABLET BY ity of mg (65 mg 00:00: MOUTH [place] iron) 00 THREE Medical tablet TIMES Branch DAILY WITH MEALS FERROUS Yes [id number] TAKE ONE [facility] vers SULFATE 325 8-13 TABLET BY ity of mg (65 mg 00:00: MOUTH [place] iron) 00 THREE Medical tablet TIMES Branch DAILY WITH MEALS FERROUS Yes [id number] TAKE ONE [facility] vers SULFATE 325 8-13 TABLET BY ity of mg (65 mg 00:00: MOUTH [place] iron) 00 THREE Medical tablet TIMES Branch DAILY WITH MEALS FERROUS Yes [id number] TAKE ONE [facility] vers SULFATE 325 8-13 TABLET BY ity of mg (65 mg 00:00: MOUTH [place] iron) 00 THREE Medical tablet TIMES Branch DAILY WITH MEALS FERROUS Yes [id number] TAKE ONE [facility] vers SULFATE 325 8-13 TABLET BY ity of mg (65 mg 00:00: MOUTH [place] iron) 00 THREE Medical tablet TIMES Branch DAILY WITH MEALS FERROUS Yes [id number] TAKE ONE [facility] vers SULFATE 325 8-13 TABLET BY ity of mg (65 mg 00:00: MOUTH [place] iron) 00 THREE Medical tablet TIMES Branch DAILY WITH MEALS FERROUS Yes [id number] TAKE ONE [facility] vers SULFATE 325 8-13 TABLET BY ity of mg (65 mg 00:00: MOUTH [place] iron) 00 THREE Medical tablet TIMES Branch DAILY WITH MEALS FERROUS Yes [id number] TAKE ONE [facility] vers SULFATE 325 8-13 TABLET BY ity of mg (65 mg 00:00: MOUTH [place] iron) 00 THREE Medical tablet TIMES Branch DAILY WITH MEALS FERROUS Yes [id number] TAKE ONE [facility] vers SULFATE 325 8-13 TABLET BY ity of mg (65 mg 00:00: MOUTH [place] iron) 00 THREE Medical tablet TIMES Branch DAILY WITH MEALS FERROUS Yes [id number] TAKE ONE [facility] vers SULFATE 325 8-13 TABLET BY ity of mg (65 mg 00:00: MOUTH [place] iron) 00 THREE Medical tablet TIMES Branch DAILY WITH MEALS FERROUS Yes [id number] TAKE ONE [facility] vers SULFATE 325 8-13 TABLET BY ity of mg (65 mg 00:00: MOUTH [place] iron) 00 THREE Medical tablet TIMES Branch DAILY WITH MEALS FERROUS Yes [id number] TAKE ONE [facility] vers SULFATE 325 8-13 TABLET BY ity of mg (65 mg 00:00: MOUTH [place] iron) 00 THREE Medical tablet TIMES Branch DAILY WITH MEALS FERROUS Yes [id number] TAKE ONE [facility] vers SULFATE 325 8-13 TABLET BY ity of mg (65 mg 00:00: MOUTH [place] iron) 00 THREE Medical tablet TIMES Branch DAILY WITH MEALS FERROUS Yes [id number] TAKE ONE [facility] vers SULFATE 325 8-13 TABLET BY ity of mg (65 mg 00:00: MOUTH [place] iron) 00 THREE Medical tablet TIMES Branch DAILY WITH MEALS FERROUS Yes [id number] TAKE ONE [facility] vers SULFATE 325 8-13 TABLET BY ity of mg (65 mg 00:00: MOUTH [place] iron) 00 THREE Medical tablet TIMES Branch DAILY WITH MEALS FERROUS Yes [id number] TAKE ONE [facility] vers SULFATE 325 8-13 TABLET BY ity of mg (65 mg 00:00: MOUTH [place] iron) 00 THREE Medical tablet TIMES Branch DAILY WITH MEALS FERROUS Yes [id number] TAKE ONE [facility] vers SULFATE 325 8-13 TABLET BY ity of mg (65 mg 00:00: MOUTH [place] iron) 00 THREE Medical tablet TIMES Branch DAILY WITH MEALS FERROUS Yes [id number] TAKE ONE [facility] vers SULFATE 325 8-13 TABLET BY ity of mg (65 mg 00:00: MOUTH [place] iron) 00 THREE Medical tablet TIMES Branch DAILY WITH MEALS FERROUS Yes [id number] TAKE ONE [facility] vers SULFATE 325 8-13 TABLET BY ity of mg (65 mg 00:00: MOUTH [place] iron) 00 THREE Medical tablet TIMES Branch DAILY WITH MEALS FERROUS Yes [id number] TAKE ONE [facility] vers SULFATE 325 8-13 TABLET BY ity of mg (65 mg 00:00: MOUTH [place] iron) 00 THREE Medical tablet TIMES Branch DAILY WITH MEALS FERROUS Yes [id number] TAKE ONE [facility] vers SULFATE 325 8-13 TABLET BY ity of mg (65 mg 00:00: MOUTH [place] iron) 00 THREE Medical tablet TIMES Branch DAILY WITH MEALS FERROUS Yes [id number] TAKE ONE [facility] vers SULFATE 325 8-13 TABLET BY ity of mg (65 mg 00:00: MOUTH [place] iron) 00 THREE Medical tablet TIMES Branch DAILY WITH MEALS FERROUS Yes [id number] TAKE ONE [facility] vers SULFATE 325 8-13 TABLET BY ity of mg (65 mg 00:00: MOUTH [place] iron) 00 THREE Medical tablet TIMES Branch DAILY WITH MEALS FERROUS Yes [id number] TAKE ONE [facility] vers SULFATE 325 8-13 TABLET BY ity of mg (65 mg 00:00: MOUTH [place] iron) 00 THREE Medical tablet TIMES Branch DAILY WITH MEALS coQ10, Yes [id number] 1{capsu Take 1 U nivers ubiquinol, 1-16 le} capsule by ity of 100 mg Cap 00:00: mouth [place] 00 daily. [facility] Branch coQ10, Yes [id number] 1{capsu Take 1 U nivers ubiquinol, 1-16 le} capsule by ity of 100 mg Cap 00:00: mouth [place] 00 daily. [facility] Branch coQ10, Yes [id number] 1{capsu Take 1 U nivers ubiquinol, 1-16 le} capsule by ity of 100 mg Cap 00:00: mouth [place] 00 daily. [facility] Branch coQ10, Yes [id number] 1{capsu Take 1 U nivers ubiquinol, 1-16 le} capsule by ity of 100 mg Cap 00:00: mouth [place] 00 daily. [facility] Branch coQ10, Yes [id number] 1{capsu Take 1 U nivers ubiquinol, 1-16 le} capsule by ity of 100 mg Cap 00:00: mouth [place] 00 daily. [facility] Branch coQ10, Yes [id number] 1{capsu Take 1 U nivers ubiquinol, 1-16 le} capsule by ity of 100 mg Cap 00:00: mouth [place] 00 daily. [facility] Branch coQ10, Yes [id number] 1{capsu Take 1 U nivers ubiquinol, 1-16 le} capsule by ity of 100 mg Cap 00:00: mouth [place] 00 daily. [facility] Branch coQ10, Yes [id number] 1{capsu Take 1 U nivers ubiquinol, 1-16 le} capsule by ity of 100 mg Cap 00:00: mouth [place] 00 daily. [facility] Branch coQ10, Yes [id number] 1{capsu Take 1 U nivers ubiquinol, 1-16 le} capsule by ity of 100 mg Cap 00:00: mouth [place] 00 daily. Medical Branch coQ10, Yes [id number] 1{capsu Take 1 U nivers ubiquinol, 1-16 le} capsule by ity of 100 mg Cap 00:00: mouth [place] 00 daily. Medical Branch coQ10, Yes [id number] 1{capsu Take 1 U nivers ubiquinol, 1-16 le} capsule by ity of 100 mg Cap 00:00: mouth [place] 00 daily. Medical Branch coQ10, Yes [id number] 1{capsu Take 1 U nivers ubiquinol, 1-16 le} capsule by ity of 100 mg Cap 00:00: mouth [place] 00 daily. [facility] coQ10, Yes [id number] 1{capsu Take 1 U nivers ubiquinol, 1-16 le} capsule by ity of 100 mg Cap 00:00: mouth [place] 00 daily. [facility] coQ10, Yes [id number] 1{capsu Take 1 [facility] nivers ubiquinol, 1-16 le} capsule by ity of 100 mg Cap 00:00: mouth [place] 00 daily. [facility] coQ10, Yes [id number] 1{capsu Take 1 U nivers ubiquinol, 1-16 le} capsule by ity of 100 mg Cap 00:00: mouth [place] 00 daily. [facility] coQ10, Yes [id number] 1{capsu Take 1 U nivers ubiquinol, 1-16 le} capsule by ity of 100 mg Cap 00:00: mouth [place] 00 daily. [facility] coQ10, Yes [id number] 1{capsu Take 1 U nivers ubiquinol, 1-16 le} capsule by ity of 100 mg Cap 00:00: mouth [place] 00 daily. [facility] coQ10, Yes [id number] 1{capsu Take 1 U nivers ubiquinol, 1-16 le} capsule by ity of 100 mg Cap 00:00: mouth [place] 00 daily. [facility] coQ10, Yes [id number] 1{capsu Take 1 U nivers ubiquinol, 1-16 le} capsule by ity of 100 mg Cap 00:00: mouth [place] 00 daily. [facility] coQ10, Yes [id number] 1{capsu Take 1 U nivers ubiquinol, 1-16 le} capsule by ity of 100 mg Cap 00:00: mouth [place] 00 daily. [facility] coQ10, Yes [id number] 1{capsu Take 1 U nivers ubiquinol, 1-16 le} capsule by ity of 100 mg Cap 00:00: mouth [place] 00 daily. [facility] coQ10, Yes [id number] 1{capsu Take 1 U nivers ubiquinol, 1-16 le} capsule by ity of 100 mg Cap 00:00: mouth [place] 00 daily. [facility] coQ10, Yes [id number] 1{capsu Take 1 U nivers ubiquinol, 1-16 le} capsule by ity of 100 mg Cap 00:00: mouth [place] 00 daily. [facility] coQ10, Yes [id number] 1{capsu Take 1 U nivers ubiquinol, 1-16 le} capsule by ity of 100 mg Cap 00:00: mouth [place] 00 daily. [facility] coQ10, Yes [id number] 1{capsu Take 1 U nivers ubiquinol, 1-16 le} capsule by ity of 100 mg Cap 00:00: mouth [place] 00 daily. [facility] coQ10, Yes [id number] 1{capsu Take 1 U nivers ubiquinol, 1-16 le} capsule by ity of 100 mg Cap 00:00: mouth [place] 00 daily. [facility] coQ10, Yes [id number] 1{capsu Take 1 U nivers ubiquinol, 1-16 le} capsule by ity of 100 mg Cap 00:00: mouth [place] 00 daily. [facility] coQ10, Yes [id number] 1{capsu Take 1 U nivers ubiquinol, 1-16 le} capsule by ity of 100 mg Cap 00:00: mouth [place] 00 daily. [facility] coQ10, Yes [id number] 1{capsu Take 1 U nivers ubiquinol, 1-16 le} capsule by ity of 100 mg Cap 00:00: mouth [place] 00 daily. [facility] coQ10, Yes [id number] 1{capsu Take 1 U nivers ubiquinol, 1-16 le} capsule by ity of 100 mg Cap 00:00: mouth [place] 00 daily. [facility] coQ10, Yes [id number] 1{capsu Take 1 U nivers ubiquinol, 1-16 le} capsule by ity of 100 mg Cap 00:00: mouth [place] 00 daily. [facility] coQ10, Yes [id number] 1{capsu Take 1 U nivers ubiquinol, 1-16 le} capsule by ity of 100 mg Cap 00:00: mouth [place] 00 daily. [facility] coQ10, Yes [id number] 1{capsu Take 1 U nivers ubiquinol, 1-16 le} capsule by ity of 100 mg Cap 00:00: mouth [place] 00 daily. [facility] coQ10, Yes [id number] 1{capsu Take 1 U nivers ubiquinol, 1-16 le} capsule by ity of 100 mg Cap 00:00: mouth [place] 00 daily. [facility] coQ10, Yes [id number] 1{capsu Take 1 U nivers ubiquinol, 1-16 le} capsule by ity of 100 mg Cap 00:00: mouth [place] 00 daily. [facility] coQ10, Yes [id number] 1{capsu Take 1 U nivers ubiquinol, 1-16 le} capsule by ity of 100 mg Cap 00:00: mouth [place] 00 daily. [facility] coQ10, Yes [id number] 1{capsu Take 1 U nivers ubiquinol, 1-16 le} capsule by ity of 100 mg Cap 00:00: mouth [place] 00 daily. [facility] coQ10, Yes [id number] 1{capsu Take 1 U nivers ubiquinol, 1-16 le} capsule by ity of 100 mg Cap 00:00: mouth [place] 00 daily. [facility] coQ10, Yes [id number] 1{capsu Take 1 U nivers ubiquinol, 1-16 le} capsule by ity of 100 mg Cap 00:00: mouth [place] 00 daily. [facility] coQ10, Yes [id number] 1{capsu Take 1 U nivers ubiquinol, 1-16 le} capsule by ity of 100 mg Cap 00:00: mouth [place] 00 daily. [facility] coQ10, Yes [id number] 1{capsu Take 1 U nivers ubiquinol, 1-16 le} capsule by ity of 100 mg Cap 00:00: mouth [place] 00 daily. [facility] coQ10, Yes [id number] 1{capsu Take 1 U nivers ubiquinol, 1-16 le} capsule by ity of 100 mg Cap 00:00: mouth [place] 00 daily. [facility] coQ10, Yes [id number] 1{capsu Take 1 U nivers ubiquinol, 1-16 le} capsule by ity of 100 mg Cap 00:00: mouth [place] 00 daily. [facility] coQ10, Yes [id number] 1{capsu Take 1 U nivers ubiquinol, 1-16 le} capsule by ity of 100 mg Cap 00:00: mouth [place] 00 daily. [facility] coQ10, Yes [id number] 1{capsu Take 1 U nivers ubiquinol, 1-16 le} capsule by ity of 100 mg Cap 00:00: mouth [place] 00 daily. [facility] coQ10, Yes [id number] 1{capsu Take 1 U nivers ubiquinol, 1-16 le} capsule by ity of 100 mg Cap 00:00: mouth [place] 00 daily. [facility] coQ10, Yes [id number] 1{capsu Take 1 U nivers ubiquinol, 1-16 le} capsule by ity of 100 mg Cap 00:00: mouth [place] 00 daily. [facility] coQ10, Yes [id number] 1{capsu Take 1 U nivers ubiquinol, 1-16 le} capsule by ity of 100 mg Cap 00:00: mouth [place] 00 daily. [facility] coQ10, Yes [id number] 1{capsu Take 1 U nivers ubiquinol, 1-16 le} capsule by ity of 100 mg Cap 00:00: mouth [place] 00 daily. [facility] coQ10, Yes [id number] 1{capsu Take 1 U nivers ubiquinol, 1-16 le} capsule by ity of 100 mg Cap 00:00: mouth [place] 00 daily. [facility] coQ10, Yes [id number] 1{capsu Take 1 U nivers ubiquinol, 1-16 le} capsule by ity of 100 mg Cap 00:00: mouth [place] 00 daily. [facility] coQ10, Yes [id number] 1{capsu Take 1 U nivers ubiquinol, 1-16 le} capsule by ity of 100 mg Cap 00:00: mouth [place] 00 daily. [facility] coQ10, Yes [id number] 1{capsu Take 1 U nivers ubiquinol, 1-16 le} capsule by ity of 100 mg Cap 00:00: mouth [place] 00 daily. [facility] coQ10, Yes [id number] 1{capsu Take 1 U nivers ubiquinol, 1-16 le} capsule by ity of 100 mg Cap 00:00: mouth [place] 00 daily. [facility] coQ10, Yes [id number] 1{capsu Take 1 U nivers ubiquinol, 1-16 le} capsule by ity of 100 mg Cap 00:00: mouth [place] 00 daily. [facility] coQ10, Yes [id number] 1{capsu Take 1 U nivers ubiquinol, 1-16 le} capsule by ity of 100 mg Cap 00:00: mouth [place] 00 daily. [facility] coQ10, Yes [id number] 1{capsu Take 1 U nivers ubiquinol, 1-16 le} capsule by ity of 100 mg Cap 00:00: mouth [place] 00 daily. [facility] coQ10, Yes [id number] 1{capsu Take 1 U nivers ubiquinol, 1-16 le} capsule by ity of 100 mg Cap 00:00: mouth [place] 00 daily. [facility] coQ10, Yes [id number] 1{capsu Take 1 U nivers ubiquinol, 1-16 le} capsule by ity of 100 mg Cap 00:00: mouth [place] 00 daily. [facility] loratadine Yes [id number] 10mg Take 1 [facility] 10 mg 1-23 tablet by ity of tablet 00:00: mouth [place] 00 daily. [facility] loratadine Yes [id number] 10mg Take 1 [facility] 10 mg 1-23 tablet by ity of tablet 00:00: mouth [place] 00 daily. [facility] loratadine Yes [id number] 10mg Take 1 [facility] 10 mg 1-23 tablet by ity of tablet 00:00: mouth [place] 00 daily. [facility] loratadine Yes [id number] 10mg Take 1 [facility] 10 mg 1-23 tablet by ity of tablet 00:00: mouth [place] 00 daily. [facility] loratadine Yes [id number] 10mg Take 1 [facility] 10 mg 1-23 tablet by ity of tablet 00:00: mouth [place] 00 daily. [facility] loratadine 2017-0 2021- No [id number] 10mg Take 1 [facility] 10 mg 10-18 tablet by ity of tablet 00:00: 00:00 mouth [place] 00 :00 daily. 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) SARS-COV-2 COVID-19 2022-07-27 Completed Unive rsity of CHRISTELLE-SUCROSE VACCINE 00:00:00 [facility] 12 YRS+, BIVALENT Branch 0.3ML, IM, (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) SARS-COV-2 COVID-2022-07-27 Completed Unive rsity of CHRISTELLE-SUCROSE VACCINE 00:00:00 [facility] 12 YRS+, BIVALENT Branch 0.3ML, IM, (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) SARS-COV-2 COVID-19 2022-07-27 Completed Unive rsity of CHRISTELLE-SUCROSE VACCINE 00:00:00 [facility] 12 YRS+, BIVALENT Branch 0.3ML, IM, (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) SARS-COV-2 COVID-19 2022-07-27 Completed Unive rsity of CHRISTELLE-SUCROSE VACCINE 00:00:00 [facility] 12 YRS+, BIVALENT Branch 0.3ML, IM, (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) SARS-COV-2 COVID-19 2022-07-27 Completed Unive rsity of CHRISTELLE-SUCROSE VACCINE 00:00:00 [facility] 12 YRS+, BIVALENT Branch 0.3ML, IM, (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) SARS-COV-2 COVID-19 2022-07-27 Completed Unive rsity of CHRISTELLE-SUCROSE VACCINE 00:00:00 [facility] 12 YRS+, BIVALENT Branch 0.3ML, IM, (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) Twinrix (hep a/hep b) 2022-02-24 Completed Uni versity of 00:00:00 [facility] (hep a/hep b) 2022-02-24 Completed Uni versity of 00:00:00 [facility] (hep a/hep b) 2022-02-24 Completed Uni versity of 00:00:00 [facility] (hep a/hep b) 2022-02-24 Completed Uni versity of 00:00:00 [facility] (hep a/hep b) 2022-02-24 Completed Uni versity of 00:00:00 [facility] (hep a/hep b) 2022-02-24 Completed Uni versity of 00:00:00 [facility] (hep a/hep b) 2022-02-24 Completed Uni versity of 00:00:00 [facility] (hep a/hep b) 2022-02-24 Completed Uni versity of 00:00:00 [facility] (hep a/hep b) 2022-02-24 Completed Uni versity of 00:00:00 [facility] (hep a/hep b) 2022-02-24 Completed Uni versity of 00:00:00 [facility] (hep a/hep b) 2022-02-24 Completed Uni versity of 00:00:00 [facility] (hep a/hep b) 2022-02-24 Completed Uni versity of 00:00:00 [facility] (hep a/hep b) 2022-02-24 Completed Uni versity of 00:00:00 [facility] (hep a/hep b) 2022-02-24 Completed Uni versity of 00:00:00 [facility] (hep a/hep b) 2022-02-24 Completed Uni versity of 00:00:00 [facility] (hep a/hep b) 2022-02-24 Completed Uni versity of 00:00:00 [facility] (hep a/hep b) 2022-02-24 Completed Uni versity of 00:00:00 [facility] (hep a/hep b) [...] b) 2022-02-24 Completed Uni versity of 00:00:00 [place] [facility] (hep a/hep b) 2022-02-24 Completed Uni versity of 00:00:00 [facility] (hep a/hep b) 2022-02-24 Completed Uni versity of 00:00:00 [place] [facility] (hep a/hep b) 2022-02-24 Completed Uni versity of 00:00:00 [facility] (hep a/hep b) 2022-02-24 Completed Uni versity of 00:00:00 [place] [facility] (hep a/hep b) 2022-02-24 Completed Uni versity of 00:00:00 [facility] (hep a/hep b) 2022-02-24 Completed Uni versity of 00:00:00 [facility] (hep a/hep b) 2022-02-24 Completed Uni versity of 00:00:00 [place] [facility] (hep a/hep b) 2022-02-24 Completed Uni versity of 00:00:00 [place] [facility] (hep a/hep b) 2022-02-24 Completed Uni versity of 00:00:00 [place] [facility] (hep a/hep b) 2022-02-24 Completed Uni versity of 00:00:00 [place] [facility] (hep a/hep b) 2022-02-24 Completed Uni versity of 00:00:00 [place] [facility] (hep a/hep b) 2022-02-24 Completed Uni versity of 00:00:00 [place] [facility] (hep a/hep b) 2022-02-24 Completed Uni versity of 00:00:00 [place] [facility] (hep a/hep b) 2022-02-24 Completed Uni versity of 00:00:00 [place] [facility] (hep a/hep b) 2022-02-24 Completed Uni versity of 00:00:00 [place] [facility] (hep a/hep b) 2022-02-24 Completed Uni versity of 00:00:00 [place] [facility] (hep a/hep b) 2022-02-24 Completed Uni versity of 00:00:00 [place] [facility] (hep a/hep b) 2022-02-24 Completed Uni versity of 00:00:00 [facility] (hep a/hep b) 2022-02-24 Completed Uni versity of 00:00:00 [facility] (hep a/hep b) 2022-02-24 Completed Uni versity of 00:00:00 [facility] (hep a/hep b) 2022-02-24 Completed Uni versity of 00:00:00 [facility] (hep a/hep b) 2022-02-24 Completed Uni versity of 00:00:00 [facility] (hep a/hep b) 2022-02-24 Completed Uni versity of 00:00:00 [facility] (hep a/hep b) 2022-02-24 Completed Uni versity of 00:00:00 [facility] (hep a/hep b) 2022-02-24 Completed Uni versity of 00:00:00 [place] [facility] (hep a/hep b) 2022-02-24 Completed Uni versity of 00:00:00 [place] [facility] (hep a/hep b) 2022-02-24 Completed Uni versity of 00:00:00 [facility] (hep a/hep b) 2022-02-24 Completed Uni versity of 00:00:00 [facility] (hep a/hep b) [...] b) 2022-02-24 Completed Uni versity of 00:00:00 [place] [facility] (hep a/hep b) 2022-02-24 Completed Uni versity of 00:00:00 [place] [facility] (hep a/hep b) 2022-02-24 Completed Uni versity of 00:00:00 [facility] (hep a/hep b) 2022-01-14 Completed Uni versity of 00:00:00 [facility] (hep a/hep b) 2022-01-14 Completed Uni versity of 00:00:00 [place] [facility] (hep a/hep b) 2022-01-14 Completed Uni versity of 00:00:00 [facility] (hep a/hep b) 2022-01-14 Completed Uni versity of 00:00:00 [facility] (hep a/hep b) [...] b) 2022-01-14 Completed Uni versity of 00:00:00 [place] [facility] (hep a/hep b) 2022-01-14 [...] b) 2022-01-14 Completed Uni versity of 00:00:00 [place] [facility] (hep a/hep b) 2022-01-14 Completed Uni versity of 00:00:00 [place] [facility] (hep a/hep b) 2022-01-14 Completed Uni versity of 00:00:00 [facility] (hep a/hep b) 2022-01-14 Completed Uni versity of 00:00:00 [place] [facility] (hep a/hep b) 2022-01-14 Completed Uni versity of 00:00:00 [place] [facility] (hep a/hep b) 2022-01-14 Completed Uni versity of 00:00:00 [facility] (hep a/hep b) [...] b) 2022-01-14 Completed Uni versity of 00:00:00 [place] [facility] (hep a/hep b) 2022-01-14 [...] b) 2022-01-14 Completed Uni versity of 00:00:00 [place] [facility] (hep a/hep b) 2022-01-14 Completed Uni versity of 00:00:00 [facility] Twin[facility] (hep a/hep b) 2022-01-14 Completed Uni versity of 00:00:00 [facility] (hep a/hep b) 2022-01-14 Completed Uni versity of 00:00:00 [facility] (hep a/hep b) 2022-01-14 Completed Uni versity of 00:00:00 [place] [facility] (hep a/hep b) 2022-01-14 Completed Uni versity of 00:00:00 [facility] (hep a/hep b) 2022-01-14 Completed Uni versity of 00:00:00 [facility] (hep a/hep b) 2022-01-14 Completed Uni versity of 00:00:00 [place] [facility] (hep a/hep b) 2022-01-14 Completed Uni versity of 00:00:00 [place] [facility] (hep a/hep b) 2022-01-14 Completed Uni versity of 00:00:00 [place] [facility] (hep a/hep b) 2022-01-14 Completed Uni versity of 00:00:00 [place] [facility] (hep a/hep b) 2022-01-14 Completed Uni versity of 00:00:00 [place] [facility] (hep a/hep b) 2022-01-14 Completed Uni versity of 00:00:00 [facility] Twin[facility] (hep a/hep b) 2022-01-14 Completed Uni versity of 00:00:00 [facility] (hep a/hep b) 2022-01-14 Completed Uni versity of 00:00:00 [facility] (hep a/hep b) 2022-01-14 Completed Uni versity of 00:00:00 [facility] (hep a/hep b) 2022-01-14 Completed Uni versity of 00:00:00 [facility] (hep a/hep b) 2022-01-14 Completed Uni versity of 00:00:00 [facility] (hep a/hep b) 2022-01-14 Completed Uni versity of 00:00:00 [facility] Twinrix (hep a/hep b) 2022-01-14 Completed Uni versity of 00:00:00 [facility] Twinrix (hep a/hep b) 2022-01-14 Completed Uni versity of 00:00:00 [facility] Twinrix (hep a/hep b) 2022-01-14 Completed Uni versity of 00:00:00 [facility] Twinrix (hep a/hep b) 2022-01-14 Completed Uni versity of 00:00:00 [facility] Twinrix (hep a/hep b) 2022-01-14 Completed Uni versity of 00:00:00 [facility] Twinrix (hep a/hep b) 2022-01-14 Completed Uni versity of 00:00:00 [facility] Twinrix (hep a/hep b) 2022-01-14 Completed Uni versity of 00:00:00 [facility]rix (hep a/hep b) 2022-01-14 Completed Uni versity of 00:00:00 [facility] SARS-COV-2 COVID-19 2021-07-23 Completed Unive rsity of PFIZER VACCINE 00:00:00 [facility] [place] SARS-COV-2 COVID-19 2021-07-23 Completed Unive rsity of PFIZER VACCINE 00:00:00 [facility] [place] SARS-COV-2 COVID-19 2021-07-23 Completed Unive rsity of PFIZER VACCINE 00:00:00 [facility] SARS-COV-2 COVID-19 2021-07-23 Completed Unive rsity of PFIZER VACCINE 00:00:00 [facility] SARS-COV-2 COVID-19 2021-07-23 Completed Unive rsity of PFIZER VACCINE 00:00:00 [facility] SARS-COV-2 COVID-19 2021-07-23 Completed Unive rsity of PFIZER VACCINE 00:00:00 [facility] SARS-COV-2 COVID-19 2021-07-23 Completed Unive rsity of PFIZER VACCINE 00:00:00 [facility] SARS-COV-2 COVID-19 2021-07-23 Completed Unive rsity of PFIZER VACCINE 00:00:00 [facility] SARS-COV-2 COVID-19 2021-07-23 Completed Unive rsity of PFIZER VACCINE 00:00:00 [facility] SARS-COV-2 COVID-19 2021-07-23 Completed Unive rsity of PFIZER VACCINE 00:00:00 [facility] SARS-COV-2 COVID-19 2021-07-23 Completed Unive rsity of PFIZER VACCINE 00:00:00 [facility] SARS-COV-2 COVID-19 2021-07-23 Completed Unive rsity of PFIZER VACCINE 00:00:00 [facility] SARS-COV-2 COVID-19 2021-07-23 Completed Unive rsity of PFIZER VACCINE 00:00:00 [facility] SARS-COV-2 COVID-19 2021-07-23 Completed Unive rsity of PFIZER VACCINE 00:00:00 [facility] SARS-COV-2 COVID-19 2021-07-23 Completed Unive rsity of PFIZER VACCINE 00:00:00 [facility] SARS-COV-2 COVID-19 2021-07-23 Completed Unive rsity of PFIZER VACCINE 00:00:00 [facility] SARS-COV-2 COVID-19 2021-07-23 Completed Unive rsity of PFIZER VACCINE 00:00:00 [facility] [place] SARS-COV-2 COVID-19 2021-07-23 Completed Unive rsity of PFIZER VACCINE 00:00:00 [facility] SARS-COV-2 COVID-19 2021-07-23 Completed Unive rsity of PFIZER VACCINE 00:00:00 [facility] SARS-COV-2 COVID-19 2021-07-23 Completed Unive rsity of PFIZER VACCINE 00:00:00 [facility] SARS-COV-2 COVID-19 2021-07-23 Completed Unive rsity of PFIZER VACCINE 00:00:00 [facility] SARS-COV-2 COVID-19 2021-07-23 Completed Unive rsity of PFIZER VACCINE 00:00:00 [facility] SARS-COV-2 COVID-19 2021-07-23 Completed Unive rsity of PFIZER VACCINE 00:00:00 [facility] SARS-COV-2 COVID-19 2021-07-23 Completed Unive rsity of PFIZER VACCINE 00:00:00 [facility] SARS-COV-2 COVID-19 2021-07-23 Completed Unive rsity of PFIZER VACCINE 00:00:00 [facility] SARS-COV-2 COVID-19 2021-07-23 Completed Unive rsity of PFIZER VACCINE 00:00:00 [facility] SARS-COV-2 COVID-19 2021-07-23 Completed Unive rsity of PFIZER VACCINE 00:00:00 [facility] SARS-COV-2 COVID-19 2021-07-23 Completed Unive rsity of PFIZER VACCINE 00:00:00 [facility] SARS-COV-2 COVID-19 2021-07-23 Completed Unive rsity of PFIZER VACCINE 00:00:00 [facility] SARS-COV-2 COVID-19 2021-07-23 Completed Unive rsity of PFIZER VACCINE 00:00:00 [facility] SARS-COV-2 COVID-19 2021-07-23 Completed Unive rsity of PFIZER VACCINE 00:00:00 [facility] SARS-COV-2 COVID-19 2021-07-23 Completed Unive rsity of PFIZER VACCINE 00:00:00 [facility] SARS-COV-2 COVID-19 2021-07-23 Completed Unive rsity of PFIZER VACCINE 00:00:00 [facility] SARS-COV-2 COVID-19 2021-07-23 Completed Unive rsity of PFIZER VACCINE 00:00:00 [facility] SARS-COV-2 COVID-19 2021-07-23 Completed Unive rsity of PFIZER VACCINE 00:00:00 [facility] SARS-COV-2 COVID-19 2021-07-23 Completed Unive rsity of PFIZER VACCINE 00:00:00 [facility] [place] SARS-COV-2 COVID-19 2021-07-23 Completed Unive rsity of PFIZER VACCINE 00:00:00 [facility] SARS-COV-2 COVID-19 2021-07-23 Completed Unive rsity of PFIZER VACCINE 00:00:00 [facility] SARS-COV-2 COVID-19 2021-07-23 Completed Unive rsity of PFIZER VACCINE 00:00:00 [facility] SARS-COV-2 COVID-19 2021-07-23 Completed Unive rsity of PFIZER VACCINE 00:00:00 [facility] SARS-COV-2 COVID-19 2021-07-23 Completed Unive rsity of PFIZER VACCINE 00:00:00 [facility] [place] SARS-COV-2 COVID-19 2021-07-23 Completed Unive rsity of PFIZER VACCINE 00:00:00 [facility] SARS-COV-2 COVID-19 2021-07-23 Completed Unive rsity of PFIZER VACCINE 00:00:00 [facility] [place] SARS-COV-2 COVID-19 2021-07-23 Completed Unive rsity of PFIZER VACCINE 00:00:00 [facility] [place] SARS-COV-2 COVID-19 2021-07-23 Completed Unive rsity of PFIZER VACCINE 00:00:00 [facility] SARS-COV-2 COVID-19 2021-07-23 Completed Unive rsity of PFIZER VACCINE 00:00:00 [facility] SARS-COV-2 COVID-19 2021-07-23 Completed Unive rsity of PFIZER VACCINE 00:00:00 [facility] SARS-COV-2 COVID-19 2021-07-23 Completed Unive rsity of PFIZER VACCINE 00:00:00 [facility] [place] SARS-COV-2 COVID-19 2021-07-23 Completed Unive rsity of PFIZER VACCINE 00:00:00 [facility] [place] SARS-COV-2 COVID-19 2021-07-23 Completed Unive rsity of PFIZER VACCINE 00:00:00 [facility] [place] SARS-COV-2 COVID-19 2021-07-23 Completed Unive rsity of PFIZER VACCINE 00:00:00 [facility] [place] SARS-COV-2 COVID-19 2021-07-23 Completed [facility] PFIZER VACCINE 00:00:00 [facility] SARS-COV-2 COVID-19 2021-07-23 Completed [facility] PFIZER VACCINE 00:00:00 [facility] SARS-COV-2 COVID-19 2021-07-23 Completed [facility] PFIZER VACCINE 00:00:00 [facility] SARS-COV-2 COVID-19 2021-07-23 Completed [facility] PFIZER VACCINE 00:00:00 [facility] SARS-COV-2 COVID-19 2021-07-23 Completed [facility] PFIZER VACCINE 00:00:00 [facility] SARS-COV-2 COVID-19 2021-07-23 Completed [facility] PFIZER VACCINE 00:00:00 [facility] SARS-COV-2 COVID-19 2021-07-23 Completed [facility] PFIZER VACCINE 00:00:00 [facility] SARS-COV-2 COVID-19 2021-07-23 Completed [facility] PFIZER VACCINE 00:00:00 [facility] Influenza Virus 2021-05-27 Completed [facility] [...] [facility] y of Vaccine (3+ yrs) 00:00:00 [facility] Influenza Virus 2021-05-27 Completed [facility] of Vaccine (3+ yrs) 00:00:00 [facility] Influenza Virus 2021-05-27 Completed [facility] Vaccine (3+ yrs) 00:00:00 [facility] Influenza Virus 2021-05-27 Completed [facility] of Vaccine (3+ yrs) 00:00:00 [facility] Influenza Virus 2021-05-27 Completed [facility] of Vaccine (3+ yrs) 00:00:00 [facility] Influenza Virus 2021-05-27 Completed [facility] of Vaccine (3+ yrs) 00:00:00 [facility] Influenza Virus 2021-05-27 Completed Universit [...] [facility] of Vaccine (3+ yrs) 00:00:00 [facility] Influenza Virus 2021-05-27 Completed [facility] Vaccine (3+ yrs) 00:00:00 [facility] Influenza Virus 2021-05-27 Completed [facility] of Vaccine (3+ yrs) 00:00:00 [facility] Influenza Virus 2021-05-27 Completed [facility] of Vaccine (3+ yrs) 00:00:00 [facility] Influenza Virus 2021-05-27 Completed [facility] of Vaccine (3+ yrs) 00:00:00 [facility] Influenza Virus 2021-05-27 Completed [facility] Vaccine (3+ yrs) 00:00:00 [facility] Influenza Virus 2021-05-27 Completed [facility] of Vaccine (3+ yrs) 00:00:00 [facility] Influenza Virus 2021-05-27 Completed [facility] Vaccine (3+ yrs) 00:00:00 [facility] Influenza Virus 2021-05-27 Completed [facility] of Vaccine (3+ yrs) 00:00:00 [facility] Influenza Virus 2021-05-27 Completed [facility] Vaccine (3+ yrs) 00:00:00 [facility] Influenza Virus 2021-05-27 Completed [facility] of Vaccine (3+ yrs) 00:00:00 [facility] Influenza Virus 2021-05-27 Completed Universit [...] [facility] of Vaccine (3+ yrs) 00:00:00 [facility] Influenza Virus 2021-05-27 Completed [facility] Vaccine (3+ yrs) 00:00:00 [facility] Influenza Virus 2021-05-27 Completed [facility] of Vaccine (3+ yrs) 00:00:00 [facility] Influenza Virus 2021-05-27 Completed Universit [...] [facility] of Vaccine (3+ yrs) 00:00:00 [facility] SARS-COV-2 COVID-19 2020-12-13 Completed [facility] PFIZER VACCINE 00:00:00 [facility] SARS-COV-2 COVID-19 2020-12-13 Completed [facility] of PFIZER VACCINE 00:00:00 [facility] SARS-COV-2 COVID-19 2020-12-13 Completed [facility] PFIZER VACCINE 00:00:00 [facility] SARS-COV-2 COVID-19 2020-12-13 Completed [facility] of PFIZER VACCINE 00:00:00 [facility] SARS-COV-2 COVID-19 2020-12-13 Completed [facility] PFIZER VACCINE 00:00:00 [facility] SARS-COV-2 COVID-19 2020-12-13 Completed [facility] PFIZER VACCINE 00:00:00 [facility] SARS-COV-2 COVID-19 2020-12-13 Completed [facility] PFIZER VACCINE 00:00:00 [facility] SARS-COV-2 COVID-19 2020-12-13 Completed [facility] PFIZER VACCINE 00:00:00 [facility] SARS-COV-2 COVID-19 2020-12-13 Completed [facility] PFIZER VACCINE 00:00:00 [facility] SARS-COV-2 COVID-19 2020-12-13 Completed [facility] PFIZER VACCINE 00:00:00 [facility] SARS-COV-2 COVID-19 2020-12-13 Completed [facility] PFIZER VACCINE 00:00:00 [facility] SARS-COV-2 COVID-19 2020-12-13 Completed [facility] PFIZER VACCINE 00:00:00 [facility] SARS-COV-2 COVID-19 2020-12-13 Completed [facility] PFIZER VACCINE 00:00:00 [facility] SARS-COV-2 COVID-19 2020-12-13 Completed [facility] PFIZER VACCINE 00:00:00 [facility] SARS-COV-2 COVID-19 2020-12-13 Completed [facility] PFIZER VACCINE 00:00:00 [facility] SARS-COV-2 COVID-19 2020-12-13 Completed [facility] PFIZER VACCINE 00:00:00 [facility] SARS-COV-2 COVID-19 2020-12-13 Completed [facility] PFIZER VACCINE 00:00:00 [facility] SARS-COV-2 COVID-19 2020-12-13 Completed [facility] PFIZER VACCINE 00:00:00 [facility] SARS-COV-2 COVID-19 2020-12-13 Completed [facility] PFIZER VACCINE 00:00:00 [facility] SARS-COV-2 COVID-19 2020-12-13 Completed [facility] PFIZER VACCINE 00:00:00 [facility] SARS-COV-2 COVID-19 2020-12-13 Completed [facility] PFIZER VACCINE 00:00:00 [facility] SARS-COV-2 COVID-19 2020-12-13 Completed [facility] PFIZER VACCINE 00:00:00 [facility] SARS-COV-2 COVID-19 2020-12-13 Completed [facility] PFIZER VACCINE 00:00:00 [facility] SARS-COV-2 COVID-19 2020-12-13 Completed [facility] PFIZER VACCINE 00:00:00 [facility] SARS-COV-2 COVID-19 2020-12-13 Completed [facility] PFIZER VACCINE 00:00:00 [facility] SARS-COV-2 COVID-19 2020-12-13 Completed [facility] PFIZER VACCINE 00:00:00 [facility] SARS-COV-2 COVID-19 2020-12-13 Completed [facility] PFIZER VACCINE 00:00:00 [facility] SARS-COV-2 COVID-19 2020-12-13 Completed [facility] PFIZER VACCINE 00:00:00 [facility] SARS-COV-2 COVID-19 2020-12-13 Completed [facility] PFIZER VACCINE 00:00:00 [facility] SARS-COV-2 COVID-19 2020-12-13 Completed [facility] PFIZER VACCINE 00:00:00 [facility] SARS-COV-2 COVID-19 2020-12-13 Completed [facility] PFIZER VACCINE 00:00:00 [facility] SARS-COV-2 COVID-19 2020-12-13 Completed [facility] PFIZER VACCINE 00:00:00 [facility] SARS-COV-2 COVID-19 2020-12-13 Completed [facility] PFIZER VACCINE 00:00:00 [facility] SARS-COV-2 COVID-19 2020-12-13 Completed [facility] PFIZER VACCINE 00:00:00 [facility] SARS-COV-2 COVID-19 2020-12-13 Completed [facility] PFIZER VACCINE 00:00:00 [facility] SARS-COV-2 COVID-19 2020-12-13 Completed [facility] PFIZER VACCINE 00:00:00 [facility] SARS-COV-2 COVID-19 2020-12-13 Completed [facility] PFIZER VACCINE 00:00:00 [facility] SARS-COV-2 COVID-19 2020-12-13 Completed [facility] PFIZER VACCINE 00:00:00 [facility] SARS-COV-2 COVID-19 2020-12-13 Completed [facility] PFIZER VACCINE 00:00:00 [facility] SARS-COV-2 COVID-19 2020-12-13 Completed [facility] PFIZER VACCINE 00:00:00 [facility] SARS-COV-2 COVID-19 2020-12-13 Completed [facility] PFIZER VACCINE 00:00:00 [facility] SARS-COV-2 COVID-19 2020-12-13 Completed [facility] PFIZER VACCINE 00:00:00 [facility] SARS-COV-2 COVID-19 2020-12-13 Completed [facility] PFIZER VACCINE 00:00:00 [facility] SARS-COV-2 COVID-19 2020-12-13 Completed [facility] of PFIZER VACCINE 00:00:00 [facility] SARS-COV-2 COVID-19 2020-12-13 Completed [facility] PFIZER VACCINE 00:00:00 [facility] SARS-COV-2 COVID-19 2020-12-13 Completed [facility] of PFIZER VACCINE 00:00:00 [facility] SARS-COV-2 COVID-19 2020-12-13 Completed [facility] of PFIZER VACCINE 00:00:00 [facility] SARS-COV-2 COVID-19 2020-12-13 Completed [facility] of PFIZER VACCINE 00:00:00 [facility] SARS-COV-2 COVID-19 2020-12-13 Completed [facility] of PFIZER VACCINE 00:00:00 [facility] SARS-COV-2 COVID-19 2020-12-13 Completed [facility] of PFIZER VACCINE 00:00:00 [facility] SARS-COV-2 COVID-19 2020-12-13 Completed [facility] of PFIZER VACCINE 00:00:00 [facility] SARS-COV-2 COVID-19 2020-12-13 Completed [facility] of PFIZER VACCINE 00:00:00 [facility] SARS-COV-2 COVID-19 2020-12-13 Completed [facility] PFIZER VACCINE 00:00:00 [facility] SARS-COV-2 COVID-19 2020-12-13 Completed [facility] PFIZER VACCINE 00:00:00 [facility] SARS-COV-2 COVID-19 2020-12-13 Completed [facility] PFIZER VACCINE 00:00:00 [facility] SARS-COV-2 COVID-19 2020-12-13 Completed [facility] PFIZER VACCINE 00:00:00 [facility] SARS-COV-2 COVID-19 2020-12-13 Completed [facility] of PFIZER VACCINE 00:00:00 [facility] SARS-COV-2 COVID-19 2020-12-13 Completed [facility] of PFIZER VACCINE 00:00:00 [facility] SARS-COV-2 COVID-19 2020-12-13 Completed [facility] of PFIZER VACCINE 00:00:00 [facility] SARS-COV-2 COVID-19 2020-11-22 Completed [facility] PFIZER VACCINE 00:00:00 [facility] SARS-COV-2 COVID-19 2020-11-22 Completed [facility] PFIZER VACCINE 00:00:00 [facility] [place] SARS-COV-2 COVID-19 2020-11-22 Completed [facility] of PFIZER VACCINE 00:00:00 [facility] SARS-COV-2 COVID-19 2020-11-22 Completed [facility] of PFIZER VACCINE 00:00:00 [facility] SARS-COV-2 COVID-19 2020-11-22 Completed [facility] of PFIZER VACCINE 00:00:00 [facility] SARS-COV-2 COVID-19 2020-11-22 Completed [facility] PFIZER VACCINE 00:00:00 [facility] SARS-COV-2 COVID-19 2020-11-22 Completed [facility] PFIZER VACCINE 00:00:00 [facility] SARS-COV-2 COVID-19 2020-11-22 Completed [facility] PFIZER VACCINE 00:00:00 [facility] SARS-COV-2 COVID-19 2020-11-22 Completed [facility] PFIZER VACCINE 00:00:00 [facility] SARS-COV-2 COVID-19 2020-11-22 Completed [facility] PFIZER VACCINE 00:00:00 [facility] SARS-COV-2 COVID-19 2020-11-22 Completed [facility] PFIZER VACCINE 00:00:00 [facility] SARS-COV-2 COVID-19 2020-11-22 Completed [facility] PFIZER VACCINE 00:00:00 [facility] SARS-COV-2 COVID-19 2020-11-22 Completed [facility] PFIZER VACCINE 00:00:00 [facility] SARS-COV-2 COVID-19 2020-11-22 Completed [facility] of PFIZER VACCINE 00:00:00 [facility] SARS-COV-2 COVID-19 2020-11-22 Completed [facility] of PFIZER VACCINE 00:00:00 [facility] SARS-COV-2 COVID-19 2020-11-22 Completed [facility] of PFIZER VACCINE 00:00:00 [facility] SARS-COV-2 COVID-19 2020-11-22 Completed [facility] PFIZER VACCINE 00:00:00 [facility] SARS-COV-2 COVID-19 2020-11-22 Completed [facility] of PFIZER VACCINE 00:00:00 [facility] SARS-COV-2 COVID-19 2020-11-22 Completed [facility] of PFIZER VACCINE 00:00:00 [facility] SARS-COV-2 COVID-19 2020-11-22 Completed [facility] of PFIZER VACCINE 00:00:00 [facility] SARS-COV-2 COVID-19 2020-11-22 Completed [facility] PFIZER VACCINE 00:00:00 [facility] SARS-COV-2 COVID-19 2020-11-22 Completed [facility] PFIZER VACCINE 00:00:00 [facility] SARS-COV-2 COVID-19 2020-11-22 Completed [facility] of PFIZER VACCINE 00:00:00 [facility] SARS-COV-2 COVID-19 2020-11-22 Completed [facility] PFIZER VACCINE 00:00:00 [facility] SARS-COV-2 COVID-19 2020-11-22 Completed [facility] PFIZER VACCINE 00:00:00 [facility] SARS-COV-2 COVID-19 2020-11-22 Completed [facility] PFIZER VACCINE 00:00:00 [facility] SARS-COV-2 COVID-19 2020-11-22 Completed [facility] of PFIZER VACCINE 00:00:00 [facility] SARS-COV-2 COVID-19 2020-11-22 Completed [facility] of PFIZER VACCINE 00:00:00 [facility] SARS-COV-2 COVID-19 2020-11-22 Completed [facility] of PFIZER VACCINE 00:00:00 [facility] SARS-COV-2 COVID-19 2020-11-22 Completed [facility] of PFIZER VACCINE 00:00:00 [facility] SARS-COV-2 COVID-19 2020-11-22 Completed [facility] of PFIZER VACCINE 00:00:00 [facility] SARS-COV-2 COVID-19 2020-11-22 Completed [facility] of PFIZER VACCINE 00:00:00 [facility] SARS-COV-2 COVID-19 2020-11-22 Completed [facility] PFIZER VACCINE 00:00:00 [facility] SARS-COV-2 COVID-19 2020-11-22 Completed [facility] of PFIZER VACCINE 00:00:00 [facility] SARS-COV-2 COVID-19 2020-11-22 Completed [facility] of PFIZER VACCINE 00:00:00 [facility] SARS-COV-2 COVID-19 2020-11-22 Completed [facility] of PFIZER VACCINE 00:00:00 [facility] SARS-COV-2 COVID-19 2020-11-22 Completed [facility] of PFIZER VACCINE 00:00:00 [facility] SARS-COV-2 COVID-19 2020-11-22 Completed [facility] of PFIZER VACCINE 00:00:00 [facility] SARS-COV-2 COVID-19 2020-11-22 Completed [facility] of PFIZER VACCINE 00:00:00 [facility] SARS-COV-2 COVID-19 2020-11-22 Completed [facility] of PFIZER VACCINE 00:00:00 [facility] SARS-COV-2 COVID-19 2020-11-22 Completed [facility] of PFIZER VACCINE 00:00:00 [facility] SARS-COV-2 COVID-19 2020-11-22 Completed [facility] of PFIZER VACCINE 00:00:00 [facility] SARS-COV-2 COVID-19 2020-11-22 Completed [facility] of PFIZER VACCINE 00:00:00 [facility] SARS-COV-2 COVID-19 2020-11-22 Completed [facility] of PFIZER VACCINE 00:00:00 [facility] SARS-COV-2 COVID-19 2020-11-22 Completed [facility] of PFIZER VACCINE 00:00:00 [facility] SARS-COV-2 COVID-19 2020-11-22 Completed [facility] of PFIZER VACCINE 00:00:00 [facility] SARS-COV-2 COVID-19 2020-11-22 Completed [facility] of PFIZER VACCINE 00:00:00 [facility] SARS-COV-2 COVID-19 2020-11-22 Completed [facility] of PFIZER VACCINE 00:00:00 [facility] SARS-COV-2 COVID-19 2020-11-22 Completed [facility] of PFIZER VACCINE 00:00:00 [facility] SARS-COV-2 COVID-19 2020-11-22 Completed [facility] of PFIZER VACCINE 00:00:00 [facility] SARS-COV-2 COVID-19 2020-11-22 Completed [facility] of PFIZER VACCINE 00:00:00 [facility] SARS-COV-2 COVID-19 2020-11-22 Completed [facility] of PFIZER VACCINE 00:00:00 [facility] SARS-COV-2 COVID-19 2020-11-22 Completed [facility] of PFIZER VACCINE 00:00:00 [facility] SARS-COV-2 COVID-19 2020-11-22 Completed [facility] of PFIZER VACCINE 00:00:00 [facility] SARS-COV-2 COVID-19 2020-11-22 Completed [facility] of PFIZER VACCINE 00:00:00 [facility] SARS-COV-2 COVID-19 2020-11-22 Completed [facility] of PFIZER VACCINE 00:00:00 [facility] SARS-COV-2 COVID-19 2020-11-22 Completed [facility] of PFIZER VACCINE 00:00:00 [facility] SARS-COV-2 COVID-19 2020-11-22 Completed [facility] of PFIZER VACCINE 00:00:00 [facility] SARS-COV-2 COVID-19 2020-11-22 Completed [facility] of PFIZER VACCINE 00:00:00 [facility] Influenza Virus 2020-05-27 Completed [facility] Vaccine Recomb Quad 00:00:00 [facility] Preserv and ABX Branc h Free 18-64 YRS Influenza Virus 2020-05-27 Completed [facility] Vaccine Recomb Quad 00:00:00 [facility] Preserv and ABX Branc h [...] [facility] of Vaccine Recomb Quad 00:00:00 [facility], Preserv and ABX Branc h [...] VACCINE 2019-08-10 Completed Uni versity of 00:00:00 [facility] TDAP 2019-08-10 Completed [facility] of 00:00:00 [facility] Pneumococcal 2019-08-10 Completed University o f Polysaccharide, 00:00:00 [facility] PPSV23 (PNEUMOVAX) Branch TDAP (ADACEL) VACCINE 2019-08-10 Completed [facility] vers[facility] of 00:00:00 [facility] TDAP 2019-08-10 Completed [facility] 00:00:00 [facility] Pneumococcal 2019-08-10 Completed [facility] o f Polysaccharide, 00:00:00 [place] [facility] PPSV23 (PNEUMOVAX) [facility] TDAP (ADACEL) VACCINE 2019-08-10 Completed [facility] vers[facility] of 00:00:00 [facility] TDAP 2019-08-10 Completed [facility] of 00:00:00 [facility] Pneumococcal 2019-08-10 Completed [facility] o f Polysaccharide, 00:00:00 [place] [facility] PPSV23 (PNEUMOVAX) Branch TDAP (ADACEL) VACCINE 2019-08-10 Completed [facility] of 00:00:00 [facility] TDAP 2019-08-10 Completed [facility] of 00:00:00 [facility] Pneumococcal 2019-08-10 Completed [facility] o f Polysaccharide, 00:00:00 [place] [facility] PPSV23 (PNEUMOVAX) Branch TDAP (ADACEL) VACCINE 2019-08-10 Completed [facility] vers[facility] of 00:00:00 [facility] TDAP 2019-08-10 Completed [facility] of 00:00:00 [facility] Pneumococcal 2019-08-10 Completed [facility] o f Polysaccharide, 00:00:00 [place] [facility] PPSV23 (PNEUMOVAX) Branch TDAP (ADACEL) VACCINE 2019-08-10 Completed [facility] vers[facility] of 00:00:00 [facility] TDAP 2019-08-10 Completed [facility] of 00:00:00 [facility] Pneumococcal 2019-08-10 Completed [facility] o f Polysaccharide, 00:00:00 [place] [facility] PPSV23 (PNEUMOVAX) Branch TDAP (ADACEL) VACCINE 2019-08-10 Completed [facility] of 00:00:00 [facility] TDAP 2019-08-10 Completed [facility] of 00:00:00 [facility] Pneumococcal 2019-08-10 Completed [facility] o f Polysaccharide, 00:00:00 [place] [facility] PPSV23 (PNEUMOVAX) Branch TDAP (ADACEL) VACCINE 2019-08-10 Completed [facility] vers[facility] of 00:00:00 [facility] TDAP 2019-08-10 Completed [facility] 00:00:00 [facility] Pneumococcal 2019-08-10 Completed [facility] o f Polysaccharide, 00:00:00 [place] [facility] PPSV23 (PNEUMOVAX) Branch TDAP (ADACEL) VACCINE 2019-08-10 Completed [facility] vers[facility] of 00:00:00 [facility] TDAP 2019-08-10 Completed [facility] of 00:00:00 [facility] Pneumococcal 2019-08-10 Completed [facility] o f Polysaccharide, 00:00:00 [place] [facility] PPSV23 (PNEUMOVAX) Branch TDAP (ADACEL) VACCINE 2019-08-10 Completed [facility] of 00:00:00 [facility] TDAP 2019-08-10 Completed [facility] of 00:00:00 [facility] Pneumococcal 2019-08-10 Completed [facility] o f Polysaccharide, 00:00:00 [place] [facility] PPSV23 (PNEUMOVAX) Branch TDAP (ADACEL) VACCINE 2019-08-10 Completed [facility] of 00:00:00 [facility] TDAP 2019-08-10 Completed [facility] of 00:00:00 [facility] Pneumococcal 2019-08-10 Completed [facility] o f Polysaccharide, 00:00:00 [place] [facility] PPSV23 (PNEUMOVAX) Branch TDAP (ADACEL) VACCINE 2019-08-10 Completed [facility] vers[facility] of 00:00:00 [facility] TDAP 2019-08-10 Completed [facility] 00:00:00 [facility] Pneumococcal 2019-08-10 Completed [facility] o f Polysaccharide, 00:00:00 [place] [facility] PPSV23 (PNEUMOVAX) Branch TDAP (ADACEL) VACCINE 2019-08-10 Completed [facility] of 00:00:00 [facility] TDAP 2019-08-10 Completed [facility] of 00:00:00 [facility] Pneumococcal 2019-08-10 Completed [facility] o f Polysaccharide, 00:00:00 [place] [facility] PPSV23 (PNEUMOVAX) Branch TDAP (ADACEL) VACCINE 2019-08-10 Completed [facility] of 00:00:00 [facility] TDAP 2019-08-10 Completed [facility] of 00:00:00 [facility] Pneumococcal 2019-08-10 Completed [facility] o f Polysaccharide, 00:00:00 [place] [facility] PPSV23 (PNEUMOVAX) Branch TDAP (ADACEL) VACCINE 2019-08-10 Completed [facility] of 00:00:00 [facility] TDAP 2019-08-10 Completed [facility] of 00:00:00 [facility] Pneumococcal 2019-08-10 Completed [facility] o f Polysaccharide, 00:00:00 [place] [facility] PPSV23 (PNEUMOVAX) Branch TDAP (ADACEL) VACCINE 2019-08-10 Completed [facility] of 00:00:00 [facility] TDAP 2019-08-10 Completed [facility] of 00:00:00 [facility] Pneumococcal 2019-08-10 Completed [facility] o f Polysaccharide, 00:00:00 [place] [facility] PPSV23 (PNEUMOVAX) Branch TDAP (ADACEL) VACCINE 2019-08-10 Completed Uni vers[facility] of 00:00:00 [facility] TDAP 2019-08-10 Completed [facility] of 00:00:00 [facility] Pneumococcal 2019-08-10 Completed [facility] o f Polysaccharide, 00:00:00 [place] [facility] PPSV23 (PNEUMOVAX) Branch TDAP (ADACEL) VACCINE 2019-08-10 Completed [facility] vers[facility] of 00:00:00 [facility] TDAP 2019-08-10 Completed [facility] of 00:00:00 [facility] Pneumococcal 2019-08-10 Completed [facility] o f Polysaccharide, 00:00:00 [place] [facility] PPSV23 (PNEUMOVAX) Branch TDAP (ADACEL) VACCINE 2019-08-10 Completed [facility] of 00:00:00 [facility] TDAP 2019-08-10 Completed [facility] of 00:00:00 [facility] Pneumococcal 2019-08-10 Completed [facility] o f Polysaccharide, 00:00:00 [place] [facility] PPSV23 (PNEUMOVAX) Branch TDAP (ADACEL) VACCINE 2019-08-10 Completed [facility] vers[facility] of 00:00:00 [facility] TDAP 2019-08-10 Completed [facility] of 00:00:00 [facility] Pneumococcal 2019-08-10 Completed [facility] o f Polysaccharide, 00:00:00 [place] [facility] PPSV23 (PNEUMOVAX) Branch TDAP (ADACEL) VACCINE 2019-08-10 Completed [facility] vers[facility] of 00:00:00 [facility] TDAP 2019-08-10 Completed [facility] of 00:00:00 [facility] Pneumococcal 2019-08-10 Completed [facility] o f Polysaccharide, 00:00:00 [place] [facility] PPSV23 (PNEUMOVAX) Branch TDAP (ADACEL) VACCINE 2019-08-10 Completed [facility] of 00:00:00 [facility] TDAP 2019-08-10 Completed [facility] of 00:00:00 [facility] Pneumococcal 2019-08-10 Completed [facility] o f Polysaccharide, 00:00:00 [place] [facility] PPSV23 (PNEUMOVAX) Branch TDAP (ADACEL) VACCINE 2019-08-10 Completed [facility] vers[facility] 00:00:00 [facility] TDAP 2019-08-10 Completed [facility] of 00:00:00 [facility] Branch Pneumococcal 2019-08-10 Completed University o f Polysaccharide, 00:00:00 [place] [facility] PPSV23 (PNEUMOVAX) Branch TDAP (ADACEL) VACCINE 2019-08-10 Completed [facility] 00:00:00 [facility] TDAP 2019-08-10 Completed [facility] of 00:00:00 [facility] Pneumococcal 2019-08-10 Completed University o f Polysaccharide, 00:00:00 [place] [facility] PPSV23 (PNEUMOVAX) Branch TDAP (ADACEL) VACCINE 2019-08-10 Completed [facility] 00:00:00 [facility] TDAP 2019-08-10 Completed [facility] of 00:00:00 [facility] Pneumococcal 2019-08-10 Completed University o f Polysaccharide, 00:00:00 [place] [facility] PPSV23 (PNEUMOVAX) Branch TDAP (ADACEL) VACCINE 2019-08-10 Completed [facility] vers[facility] of 00:00:00 [facility] TDAP 2019-08-10 Completed [facility] of 00:00:00 [facility] Pneumococcal 2019-08-10 Completed University o f Polysaccharide, 00:00:00 [place] [facility] PPSV23 (PNEUMOVAX) Branch TDAP (ADACEL) VACCINE 2019-08-10 Completed [facility] 00:00:00 [facility] TDAP 2019-08-10 Completed [facility] of 00:00:00 [facility] Pneumococcal 2019-08-10 Completed University o f Polysaccharide, 00:00:00 [place] [facility] PPSV23 (PNEUMOVAX) Branch TDAP (ADACEL) VACCINE 2019-08-10 Completed [facility] vers[facility] of 00:00:00 [facility] TDAP 2019-08-10 Completed [facility] of 00:00:00 [facility] Pneumococcal 2019-08-10 Completed [facility] o f Polysaccharide, 00:00:00 [place] [facility] PPSV23 (PNEUMOVAX) Branch TDAP (ADACEL) VACCINE 2019-08-10 Completed [facility] vers[facility] of 00:00:00 [facility] TDAP 2019-08-10 Completed [facility] of 00:00:00 [facility] Pneumococcal 2019-08-10 Completed [facility] o f Polysaccharide, 00:00:00 [place] [facility] PPSV23 (PNEUMOVAX) Branch TDAP (ADACEL) VACCINE 2019-08-10 Completed [facility] vers[facility] of 00:00:00 [facility] TDAP 2019-08-10 Completed [facility] of 00:00:00 [facility] Pneumococcal 2019-08-10 Completed [facility] o f Polysaccharide, 00:00:00 [place] [facility] PPSV23 (PNEUMOVAX) Branch TDAP (ADACEL) VACCINE 2019-08-10 Completed [facility] vers[facility] 00:00:00 [facility] TDAP 2019-08-10 Completed [facility] of 00:00:00 [facility] Pneumococcal 2019-08-10 Completed [facility] o f Polysaccharide, 00:00:00 [place] [facility] PPSV23 (PNEUMOVAX) Branch TDAP (ADACEL) VACCINE 2019-08-10 Completed [facility] 00:00:00 [facility] TDAP 2019-08-10 Completed [facility] of 00:00:00 [facility] Pneumococcal 2019-08-10 Completed University o f Polysaccharide, 00:00:00 [place] [facility] PPSV23 (PNEUMOVAX) Branch TDAP (ADACEL) VACCINE 2019-08-10 Completed Uni versity of 00:00:00 [facility] TDAP 2019-08-10 Completed [facility] of 00:00:00 [facility] Pneumococcal 2019-08-10 Completed [facility] o f Polysaccharide, 00:00:00 [place] [facility] PPSV23 (PNEUMOVAX) Branch TDAP (ADACEL) VACCINE 2019-08-10 Completed [facility] 00:00:00 [facility] TDAP 2019-08-10 Completed [facility] of 00:00:00 [facility] Pneumococcal 2019-08-10 Completed University o f Polysaccharide, 00:00:00 [place] [facility] PPSV23 (PNEUMOVAX) Branch TDAP (ADACEL) VACCINE 2019-08-10 Completed [facility] 00:00:00 [facility] TDAP 2019-08-10 Completed [facility] 00:00:00 [facility] Pneumococcal 2019-08-10 Completed [facility] o f Polysaccharide, 00:00:00 [place] [facility] PPSV23 (PNEUMOVAX) Branch TDAP (ADACEL) VACCINE 2019-08-10 Completed [facility] 00:00:00 [facility] TDAP 2019-08-10 Completed [facility] 00:00:00 [facility] Pneumococcal 2019-08-10 Completed University o f Polysaccharide, 00:00:00 [place] [facility] PPSV23 (PNEUMOVAX) Branch TDAP (ADACEL) VACCINE 2019-08-10 Completed [facility] vers[facility] 00:00:00 [facility] TDAP 2019-08-10 Completed [facility] of 00:00:00 [facility] Pneumococcal 2019-08-10 Completed [facility] o f Polysaccharide, 00:00:00 [place] [facility] PPSV23 (PNEUMOVAX) Branch TDAP (ADACEL) VACCINE 2019-08-10 Completed Uni vers[facility] of 00:00:00 [facility] TDAP 2019-08-10 Completed [facility] of 00:00:00 [facility] Pneumococcal 2019-08-10 Completed [facility] o f Polysaccharide, 00:00:00 [place] [facility] PPSV23 (PNEUMOVAX) Branch TDAP (ADACEL) VACCINE 2019-08-10 Completed [facility] versity of 00:00:00 [facility] TDAP 2019-08-10 Completed [facility] of 00:00:00 [facility] Pneumococcal 2019-08-10 Completed [facility] o f Polysaccharide, 00:00:00 [place] [facility] PPSV23 (PNEUMOVAX) Branch TDAP (ADACEL) VACCINE 2019-08-10 Completed [facility] vers[facility] of 00:00:00 [facility] TDAP 2019-08-10 Completed [facility] of 00:00:00 [facility] Pneumococcal 2019-08-10 Completed University o f Polysaccharide, 00:00:00 [place] [facility] PPSV23 (PNEUMOVAX) Branch TDAP (ADACEL) VACCINE 2019-08-10 Completed [facility] vers[facility] of 00:00:00 [facility] TDAP 2019-08-10 Completed [facility] of 00:00:00 [facility] Pneumococcal 2019-08-10 Completed University o f Polysaccharide, 00:00:00 [place] [facility] PPSV23 (PNEUMOVAX) Branch TDAP (ADACEL) VACCINE 2019-08-10 Completed [facility] 00:00:00 [facility] TDAP 2019-08-10 Completed [facility] 00:00:00 [facility] Pneumococcal 2019-08-10 Completed [facility] o f Polysaccharide, 00:00:00 [place] [facility] PPSV23 (PNEUMOVAX) Branch TDAP (ADACEL) VACCINE 2019-08-10 Completed [facility] vers[facility] 00:00:00 [facility] TDAP 2019-08-10 Completed [facility] of 00:00:00 [facility] Pneumococcal 2019-08-10 Completed University o f Polysaccharide, 00:00:00 [place] [facility] PPSV23 (PNEUMOVAX) Branch TDAP (ADACEL) VACCINE 2019-08-10 Completed [facility] 00:00:00 [facility] TDAP 2019-08-10 Completed [facility] of 00:00:00 [facility] Pneumococcal 2019-08-10 Completed [facility] o f Polysaccharide, 00:00:00 [place] [facility] PPSV23 (PNEUMOVAX) Branch TDAP (ADACEL) VACCINE 2019-08-10 Completed [facility] vers[facility] of 00:00:00 [facility] TDAP 2019-08-10 Completed [facility] of 00:00:00 [facility] Pneumococcal 2019-08-10 Completed [facility] o f Polysaccharide, 00:00:00 [place] [facility] PPSV23 (PNEUMOVAX) Branch TDAP (ADACEL) VACCINE 2019-08-10 Completed [facility] vers[facility] of 00:00:00 [facility] TDAP 2019-08-10 Completed [facility] of 00:00:00 [facility] Pneumococcal 2019-08-10 Completed University o f Polysaccharide, 00:00:00 [place] [facility] PPSV23 (PNEUMOVAX) Branch TDAP (ADACEL) VACCINE 2019-08-10 Completed Uni vers[facility] of 00:00:00 [facility] TDAP 2019-08-10 Completed [facility] of 00:00:00 [facility] Pneumococcal 2019-08-10 Completed University o f Polysaccharide, 00:00:00 [place] [facility] PPSV23 (PNEUMOVAX) Branch TDAP (ADACEL) VACCINE 2019-08-10 Completed [facility] vers[facility] of 00:00:00 [facility] TDAP 2019-08-10 Completed [facility] of 00:00:00 [facility] Pneumococcal 2019-08-10 Completed [facility] o f Polysaccharide, 00:00:00 [place] [facility] PPSV23 (PNEUMOVAX) Branch TDAP (ADACEL) VACCINE 2019-08-10 Completed [facility] 00:00:00 [facility] TDAP 2019-08-10 Completed [facility] of 00:00:00 [facility] Pneumococcal 2019-08-10 Completed University o f Polysaccharide, 00:00:00 [place] [facility] PPSV23 (PNEUMOVAX) Branch TDAP (ADACEL) VACCINE 2019-08-10 Completed [facility] 00:00:00 [facility] TDAP 2019-08-10 Completed [facility] of 00:00:00 [facility] Pneumococcal 2019-08-10 Completed [facility] o f Polysaccharide, 00:00:00 [place] [facility] PPSV23 (PNEUMOVAX) Branch TDAP (ADACEL) VACCINE 2019-08-10 Completed [facility] versity of 00:00:00 [facility] TDAP 2019-08-10 Completed [facility] of 00:00:00 [facility] Pneumococcal 2019-08-10 Completed [facility] o f Polysaccharide, 00:00:00 [place] [facility] PPSV23 (PNEUMOVAX) Branch TDAP (ADACEL) VACCINE 2019-08-10 Completed [facility] vers[facility] of 00:00:00 [facility] TDAP 2019-08-10 Completed [facility] of 00:00:00 [facility] Pneumococcal 2019-08-10 Completed University o f Polysaccharide, 00:00:00 [place] [facility] PPSV23 (PNEUMOVAX) Branch TDAP (ADACEL) VACCINE 2019-08-10 Completed Uni versity of 00:00:00 [facility] TDAP 2019-08-10 Completed [facility] of 00:00:00 [facility] Pneumococcal 2019-08-10 Completed University o f Polysaccharide, 00:00:00 [place] [facility] PPSV23 (PNEUMOVAX) Branch TDAP (ADACEL) VACCINE 2019-08-10 Completed [facility] vers[facility] of 00:00:00 [facility] TDAP 2019-08-10 Completed [facility] of 00:00:00 [facility] Pneumococcal 2019-08-10 Completed University o f Polysaccharide, 00:00:00 [place] [facility] PPSV23 (PNEUMOVAX) Branch TDAP (ADACEL) VACCINE 2019-08-10 Completed [facility] vers[facility] of 00:00:00 [facility] TDAP 2019-08-10 Completed [facility] of 00:00:00 [facility] Pneumococcal 2019-08-10 Completed [facility] o f Polysaccharide, 00:00:00 [place] [facility] PPSV23 (PNEUMOVAX) Branch TDAP (ADACEL) VACCINE 2019-08-10 Completed [facility] 00:00:00 [facility] TDAP 2019-08-10 Completed [facility] of 00:00:00 [facility] Pneumococcal 2019-08-10 Completed University o f Polysaccharide, 00:00:00 [place] [facility] PPSV23 (PNEUMOVAX) Branch TDAP (ADACEL) VACCINE 2019-08-10 Completed [facility] of 00:00:00 [facility] TDAP 2019-08-10 Completed [facility] of 00:00:00 [facility] Pneumococcal 2019-08-10 Completed University o f Polysaccharide, 00:00:00 [place] [facility] PPSV23 (PNEUMOVAX) Branch TDAP (ADACEL) VACCINE 2019-08-10 Completed [facility] of 00:00:00 [facility] TDAP 2019-08-10 Completed [facility] of 00:00:00 [facility] Pneumococcal 2019-08-10 Completed University o f Polysaccharide, 00:00:00 [facility] ical PPSV23 (PNEUMOVAX) Branch TDAP (ADACEL) VACCINE 2019-08-10 Completed Uni versity of 00:00:00 [facility] TDAP 2019-08-10 Completed [facility] of 00:00:00 [facility] Influenza Virus 2019-07-04 Completed Universit y of Vaccine 00:00:00 [facility] Influenza Virus 2019-07-04 Completed Universit y of Vaccine Recomb Quad 00:00:00 [facility], Preserv and ABX Branc h Free 18-64 YRS Influenza Virus 2019-07-04 Completed Universit y of Vaccine 00:00:00 [facility] Influenza Virus 2019-07-04 Completed Universit y of Vaccine Recomb Quad 00:00:00 [facility], Preserv and ABX Branc h Free 18-64 YRS Influenza Virus 2019-07-04 Completed Universit y of Vaccine 00:00:00 [facility] Influenza Virus 2019-07-04 Completed Universit y of Vaccine Recomb Quad 00:00:00 [facility], Preserv and ABX Branc h Free 18-64 YRS Influenza Virus 2019-07-04 Completed Universit y of Vaccine 00:00:00 [facility] Influenza Virus 2019-07-04 Completed Universit y of Vaccine Recomb Quad 00:00:00 [place] [facility], Preserv and ABX Branc h Free 18-64 YRS Influenza Virus 2019-07-04 Completed Universit y of Vaccine 00:00:00 [facility] Influenza Virus 2019-07-04 Completed Universit y of Vaccine Recomb Quad 00:00:00 [facility], Preserv and ABX Branc h Free 18-64 YRS Influenza Virus 2019-07-04 Completed Universit y of Vaccine 00:00:00 [facility] Influenza Virus 2019-07-04 Completed Universit y of Vaccine Recomb Quad 00:00:00 [place] [facility], Preserv and ABX Branc h Free 18-64 YRS Influenza Virus 2019-07-04 Completed Universit y of Vaccine 00:00:00 [facility] Influenza Virus 2019-07-04 Completed Universit y of Vaccine Recomb Quad 00:00:00 [place] [facility], Preserv and ABX Branc h Free 18-64 YRS Influenza Virus 2019-07-04 Completed Universit y of Vaccine 00:00:00 [facility] Influenza Virus 2019-07-04 Completed Universit y of Vaccine Recomb Quad 00:00:00 [place] [facility], Preserv and ABX Branc h Free 18-64 YRS Influenza Virus 2019-07-04 Completed Universit y of Vaccine 00:00:00 [facility] Influenza Virus 2019-07-04 Completed Universit y of Vaccine Recomb Quad 00:00:00 [place] [facility], Preserv and ABX Branc h Free 18-64 YRS Influenza Virus 2019-07-04 Completed Universit y of Vaccine 00:00:00 [facility] Influenza Virus 2019-07-04 Completed Universit y of Vaccine Recomb Quad 00:00:00 [place] [facility], Preserv and ABX Branc h Free 18-64 YRS Influenza Virus 2019-07-04 Completed Universit y of Vaccine 00:00:00 [facility] Influenza Virus 2019-07-04 Completed Universit y of Vaccine Recomb Quad 00:00:00 [place] [facility], Preserv and ABX Branc h Free 18-64 YRS Influenza Virus 2019-07-04 Completed Universit y of Vaccine 00:00:00 [facility] Influenza Virus 2019-07-04 Completed Universit y of Vaccine Recomb Quad 00:00:00 [place] [facility], Preserv and ABX Branc h Free 18-64 YRS Influenza Virus 2019-07-04 Completed Universit y of Vaccine 00:00:00 [facility] Influenza Virus 2019-07-04 Completed Universit y of Vaccine Recomb Quad 00:00:00 [facility], Preserv and ABX Branc h Free 18-64 YRS Influenza Virus 2019-07-04 Completed Universit y of Vaccine 00:00:00 [facility] Influenza Virus 2019-07-04 Completed Universit y of Vaccine Recomb Quad 00:00:00 [place] [facility], Preserv and ABX Branc h Free 18-64 YRS Influenza Virus 2019-07-04 Completed Universit y of Vaccine 00:00:00 [facility] Influenza Virus 2019-07-04 Completed Universit y of Vaccine Recomb Quad 00:00:00 [place] [facility], Preserv and ABX Branc h Free 18-64 YRS Influenza Virus 2019-07-04 Completed Universit y of Vaccine 00:00:00 [facility] Influenza Virus 2019-07-04 Completed Universit y of Vaccine Recomb Quad 00:00:00 [place] [facility], Preserv and ABX Branc h Free 18-64 YRS Influenza Virus 2019-07-04 Completed Universit y of Vaccine 00:00:00 [facility] Influenza Virus 2019-07-04 Completed Universit y of Vaccine Recomb Quad 00:00:00 [place] [facility], Preserv and ABX Branc h Free 18-64 YRS Influenza Virus 2019-07-04 Completed Universit y of Vaccine 00:00:00 [facility] Influenza Virus 2019-07-04 Completed Universit y of Vaccine Recomb Quad 00:00:00 [place] [facility], Preserv and ABX Branc h Free 18-64 YRS Influenza Virus 2019-07-04 Completed Universit y of Vaccine 00:00:00 [facility] Influenza Virus 2019-07-04 Completed [facility]it y of Vaccine Recomb Quad 00:00:00 [place] [facility], Preserv and ABX Branc h Free 18-64 YRS Influenza Virus 2019-07-04 Completed [facility]it y of Vaccine 00:00:00 [facility] Influenza Virus 2019-07-04 Completed [facility]it y of Vaccine Recomb Quad 00:00:00 [place] [facility], Preserv and ABX Branc h Free 18-64 YRS Influenza Virus 2019-07-04 Completed Universit y of Vaccine 00:00:00 [facility] Influenza Virus 2019-07-04 Completed [facility]it y of Vaccine Recomb Quad 00:00:00 [place] [facility], Preserv and ABX Branc h Free 18-64 YRS Influenza Virus 2019-07-04 Completed Universit y of Vaccine 00:00:00 [facility] Influenza Virus 2019-07-04 Completed [facility]it y of Vaccine Recomb Quad 00:00:00 [place] [facility], Preserv and ABX Branc h Free 18-64 YRS Influenza Virus 2019-07-04 Completed Universit y of Vaccine 00:00:00 [facility] Influenza Virus 2019-07-04 Completed Universit y of Vaccine Recomb Quad 00:00:00 [place] [facility], Preserv and ABX Branc h Free 18-64 YRS Influenza Virus 2019-07-04 Completed Universit y of Vaccine 00:00:00 [facility] Influenza Virus 2019-07-04 Completed Universit y of Vaccine Recomb Quad 00:00:00 [place] [facility], Preserv and ABX Branc h Free 18-64 YRS Influenza Virus 2019-07-04 Completed Universit y of Vaccine 00:00:00 [facility] Influenza Virus 2019-07-04 Completed Universit y of Vaccine Recomb Quad 00:00:00 [place] [facility], Preserv and ABX Branc h Free 18-64 YRS Influenza Virus 2019-07-04 Completed Universit y of Vaccine 00:00:00 [facility] Influenza Virus 2019-07-04 Completed [facility]it y of Vaccine Recomb Quad 00:00:00 [place] [facility], Preserv and ABX Branc h Free 18-64 YRS Influenza Virus 2019-07-04 Completed Universit y of Vaccine 00:00:00 [facility] Influenza Virus 2019-07-04 Completed [facility]it y of Vaccine Recomb Quad 00:00:00 [place] [facility], Preserv and ABX Branc h Free 18-64 YRS Influenza Virus 2019-07-04 Completed Universit y of Vaccine 00:00:00 [facility] Influenza Virus 2019-07-04 Completed [facility]it y of Vaccine Recomb Quad 00:00:00 [place] [facility], Preserv and ABX Branc h Free 18-64 YRS Influenza Virus 2019-07-04 Completed [facility]it y of Vaccine 00:00:00 [facility] Influenza Virus 2019-07-04 Completed [facility]it y of Vaccine Recomb Quad 00:00:00 [facility], Preserv and ABX Branc h Free 18-64 YRS Influenza Virus 2019-07-04 Completed [facility]it y of Vaccine 00:00:00 [facility] Influenza Virus 2019-07-04 Completed [facility]it y of Vaccine Recomb Quad 00:00:00 [place] [facility], Preserv and ABX Branc h Free 18-64 YRS Influenza Virus 2019-07-04 Completed Universit y of Vaccine 00:00:00 [facility] Influenza Virus 2019-07-04 Completed [facility]it y of Vaccine Recomb Quad 00:00:00 [place] [facility], Preserv and ABX Branc h Free 18-64 YRS Influenza Virus 2019-07-04 Completed Universit y of Vaccine 00:00:00 [facility] Influenza Virus 2019-07-04 Completed [facility]it y of Vaccine Recomb Quad 00:00:00 [place] [facility], Preserv and ABX Branc h Free 18-64 YRS Influenza Virus 2019-07-04 Completed [facility]it y of Vaccine 00:00:00 [facility] Influenza Virus 2019-07-04 Completed [facility]it y of Vaccine Recomb Quad 00:00:00 [place] [facility], Preserv and ABX Branc h Free 18-64 YRS Influenza Virus 2019-07-04 Completed Universit y of Vaccine 00:00:00 [facility] Influenza Virus 2019-07-04 Completed [facility]it y of Vaccine Recomb Quad 00:00:00 [place] [facility], Preserv and ABX Branc h Free 18-64 YRS Influenza Virus 2019-07-04 Completed [facility]it y of Vaccine 00:00:00 [facility] Influenza Virus 2019-07-04 Completed [facility]it y of Vaccine Recomb Quad 00:00:00 [place] [facility], Preserv and ABX Branc h Free 18-64 YRS Influenza Virus 2019-07-04 Completed [facility]it y of Vaccine 00:00:00 [facility] Influenza Virus 2019-07-04 Completed [facility]it y of Vaccine Recomb Quad 00:00:00 [facility], Preserv and ABX Branc h Free 18-64 YRS Influenza Virus 2019-07-04 Completed [facility]it y of Vaccine 00:00:00 [facility] Influenza Virus 2019-07-04 Completed [facility]it y of Vaccine Recomb Quad 00:00:00 [place] [facility], Preserv and ABX Branc h Free 18-64 YRS Influenza Virus 2019-07-04 Completed [facility]it y of Vaccine 00:00:00 [facility] Influenza Virus 2019-07-04 Completed [facility]it y of Vaccine Recomb Quad 00:00:00 [facility], Preserv and ABX Branc h Free 18-64 YRS Influenza Virus 2019-07-04 Completed [facility]it y of Vaccine 00:00:00 [facility] Influenza Virus 2019-07-04 Completed [facility]it y of Vaccine Recomb Quad 00:00:00 [facility], Preserv and ABX Branc h Free 18-64 YRS Influenza Virus 2019-07-04 Completed [facility]it y of Vaccine 00:00:00 [facility] Influenza Virus 2019-07-04 Completed Universit y of Vaccine Recomb Quad 00:00:00 [facility], Preserv and ABX Branc h Free 18-64 YRS Influenza Virus 2019-07-04 Completed [facility]it y of Vaccine 00:00:00 [facility] Influenza Virus 2019-07-04 Completed [facility]it y of Vaccine Recomb Quad 00:00:00 [place] [facility], Preserv and ABX Branc h Free 18-64 YRS Influenza Virus 2019-07-04 Completed [facility] y of Vaccine 00:00:00 [facility] Influenza Virus 2019-07-04 Completed [facility] y of Vaccine Recomb Quad 00:00:00 [facility], Preserv and ABX Branc h Free 18-64 YRS Influenza Virus 2019-07-04 Completed [facility]it y of Vaccine 00:00:00 [facility] Influenza Virus 2019-07-04 Completed [facility] y of Vaccine Recomb Quad 00:00:00 [facility], Preserv and ABX Branc h Free 18-64 YRS Influenza Virus 2019-07-04 Completed [facility] y of Vaccine 00:00:00 [facility] Influenza Virus 2019-07-04 Completed [facility] y of Vaccine Recomb Quad 00:00:00 [facility], Preserv and ABX Branc h Free 18-64 YRS Influenza Virus 2019-07-04 Completed [facility] y of Vaccine 00:00:00 [facility] Influenza Virus 2019-07-04 Completed [facility] y of Vaccine Recomb Quad 00:00:00 [facility], Preserv and ABX Branc h Free 18-64 YRS Influenza Virus 2019-07-04 Completed [facility] y of Vaccine 00:00:00 [facility] Influenza Virus 2019-07-04 Completed [facility] y of Vaccine Recomb Quad 00:00:00 [facility], Preserv and ABX Branc h Free 18-64 YRS Influenza Virus 2019-07-04 Completed [facility] of Vaccine 00:00:00 [facility] Influenza Virus 2019-07-04 Completed [facility] y of Vaccine Recomb Quad 00:00:00 [facility], Preserv and ABX Branc h Free 18-64 YRS Influenza Virus 2019-07-04 Completed [facility] y of Vaccine 00:00:00 [facility] Influenza Virus 2019-07-04 Completed [facility] y of Vaccine Recomb Quad 00:00:00 [facility], Preserv and ABX Branc h Free 18-64 YRS Influenza Virus 2019-07-04 Completed [facility] y of Vaccine 00:00:00 [facility] Influenza Virus 2019-07-04 Completed [facility] y of Vaccine Recomb Quad 00:00:00 [facility], Preserv and ABX Branc h Free 18-64 YRS Influenza Virus 2019-07-04 Completed [facility] of Vaccine 00:00:00 [facility] Influenza Virus 2019-07-04 Completed [facility] y of Vaccine Recomb Quad 00:00:00 [facility], Preserv and ABX Branc h Free 18-64 YRS Influenza Virus 2019-07-04 Completed [facility] of Vaccine 00:00:00 [facility] Influenza Virus 2019-07-04 Completed [facility] y of Vaccine Recomb Quad 00:00:00 [facility], Preserv and ABX Branc h Free 18-64 YRS Influenza Virus 2019-07-04 Completed [facility] of Vaccine 00:00:00 [facility] Influenza Virus 2019-07-04 Completed [facility] y of Vaccine Recomb Quad 00:00:00 [facility], Preserv and ABX Branc h Free 18-64 YRS Influenza Virus 2019-07-04 Completed [facility] of Vaccine 00:00:00 [facility] Influenza Virus 2019-07-04 Completed [facility]ine Recomb Quad 00:00:00 [facility], Preserv and ABX Branc h Free 18-64 YRS Influenza Virus 2019-07-04 Completed [facility] Vaccine 00:00:00 [facility] Influenza Virus 2019-07-04 Completed [facility] Vaccine Recomb Quad 00:00:00 [facility], Preserv and ABX Branc h Free 18-64 YRS Influenza Virus 2019-07-04 Completed [facility] Vaccine 00:00:00 [facility] Influenza Virus 2019-07-04 Completed [facility] Vaccine Recomb Quad 00:00:00 [facility], Preserv and ABX Branc h Free 18-64 YRS Influenza Virus 2019-07-04 Completed [facility] Vaccine 00:00:00 [facility] Influenza Virus 2019-07-04 Completed [facility] Vaccine Recomb Quad 00:00:00 [facility], Preserv and ABX Branc h Free 18-64 YRS Influenza Virus 2019-07-04 Completed [facility] Vaccine 00:00:00 [facility] Influenza Virus 2019-07-04 Completed [facility] Vaccine Recomb Quad 00:00:00 [facility], Preserv and ABX Branc h Free 18-64 YRS Influenza Virus 2019-07-04 Completed [facility] Vaccine 00:00:00 [facility] Influenza Virus 2019-07-04 Completed [facility] Vaccine Recomb Quad 00:00:00 [facility], Preserv and ABX Branc h Free 18-64 YRS Influenza Virus 2019-07-04 Completed [facility] Vaccine 00:00:00 [facility] Influenza Virus 2019-07-04 Completed [facility] Vaccine Recomb Quad 00:00:00 [facility], Preserv and ABX Branc h [...] ID [id number] 00:00:00 [facility] as [facility] Influenza Virus 2017-06-15 Completed [facility] of Vaccine Quad ID 18-64 00:00:00 [facility] as [facility] Influenza Virus 2017-06-15 Completed [facility] of Vaccine Quad ID 18-64 00:00:00 [facility] as [facility] Influenza Virus 2017-06-15 Completed [facility] of Vaccine Quad ID 18-64 00:00:00 [facility] as [facility] Influenza Virus 2017-06-15 Completed [facility] of Vaccine Quad ID 18-64 00:00:00 [facility] as [facility] Influenza Virus 2017-06-15 Completed [facility] of Vaccine Quad ID 18-64 00:00:00 [facility] as [facility] Influenza Virus 2017-06-15 Completed [facility] of Vaccine Quad ID 18-64 00:00:00 [facility] as [facility] Influenza Virus 2017-06-15 Completed [facility] of Vaccine Quad ID 18-64 00:00:00 [facility] as [facility] Influenza Virus 2017-06-15 Completed [facility] of Vaccine Quad ID 18-64 00:00:00 [facility] as [facility] Influenza Virus 2017-06-15 Completed Universit [...] y of Vaccine Quad ID [id number] 00:00:00 [facility] as [facility] Y[facility] Branch Influenza Virus 2017-06-15 [...] [facility] Vaccine Quad IM 00:00:00 [facility] Multi-dose 6+ MO Branch Influenza Virus 2016-08-05 Completed [facility] Vaccine Quad IM 00:00:00 [facility] Multi-dose 6+ MO [facility] Influenza Virus 2016-08-05 Completed [facility] Vaccine Quad IM 00:00:00 [facility] Multi-dose 6+ MO Branch Influenza Virus 2016-08-05 Completed [facility] Vaccine Quad IM 00:00:00 [facility] Multi-dose 6+ MO Branch Influenza Virus 2016-08-05 Completed [facility] Vaccine Quad IM 00:00:00 [facility] Multi-dose 6+ MO Branch Influenza Virus 2016-08-05 Completed [facility] Vaccine Quad IM 00:00:00 [facility] Multi-dose 6+ MO [facility] Influenza Virus 2016-08-05 Completed [facility] Vaccine Quad IM 00:00:00 [facility] Multi-dose 6+ MO [facility] Pneumococcal 13 2016-03-07 Completed [facility] of Conjugate, PCV13 00:00:00 [facility] dical (Prevnar 13) Branch Meningococcal B, OMV 2016-03-07 Completed Univ ersity of 00:00:00 [facility] Pneumococcal 13 2016-03-07 Completed [facility] of Conjugate, PCV13 00:00:00 [facility] dical (Prevnar 13) Branch Meningococcal B, OMV 2016-03-07 Completed Univ ersity of 00:00:00 [facility] Pneumococcal 13 2016-03-07 Completed [facility] of Conjugate, PCV13 00:00:00 [facility] dical (Prevnar 13) Branch Meningococcal B, OMV 2016-03-07 Completed Univ ersity of 00:00:00 [facility] Pneumococcal 13 2016-03-07 Completed [facility] of Conjugate, PCV13 00:00:00 [facility] dical (Prevnar 13) Branch Meningococcal B, OMV 2016-03-07 Completed [facility] ersity of 00:00:00 [facility] Pneumococcal 13 2016-03-07 Completed [facility] of Conjugate, PCV13 00:00:00 [facility] dical (Prevnar 13) Branch Meningococcal B, OMV 2016-03-07 Completed [facility] ersity of 00:00:00 [facility] Pneumococcal 13 2016-03-07 Completed [facility] Conjugate, PCV13 00:00:00 [facility] (Prevnar 13) [facility] Meningococcal B, [facility] 2016-03-07 Completed [facility] ersity of 00:00:00 [facility] Pneumococcal 13 2016-03-07 Completed [facility] of Conjugate, PCV13 00:00:00 [facility] (Prevnar 13) Branch Meningococcal B, [facility] 2016-03-07 Completed [facility] ersity of 00:00:00 [facility] Pneumococcal 13 2016-03-07 Completed [facility] of Conjugate, PCV13 00:00:00 [facility] (Prevnar 13) Branch Meningococcal B, [facility] 2016-03-07 Completed [facility] ersity of 00:00:00 [facility] Pneumococcal 13 2016-03-07 Completed [facility] Conjugate, PCV13 00:00:00 [facility] (Prevnar 13) Branch Meningococcal B, [facility] 2016-03-07 Completed [facility] ersity of 00:00:00 [facility] Pneumococcal 13 2016-03-07 Completed [facility] of Conjugate, PCV13 00:00:00 [facility] (Prevnar 13) Branch Meningococcal B, [facility] 2016-03-07 Completed [facility] ersity of 00:00:00 [facility] Pneumococcal 13 2016-03-07 Completed [facility] Conjugate, PCV13 00:00:00 [place] [facility] (Prevnar 13) Branch Meningococcal B, [facility] 2016-03-07 Completed [facility] ersity of 00:00:00 [facility] Pneumococcal 13 2016-03-07 Completed [facility] Conjugate, PCV13 00:00:00 [facility] (Prevnar 13) Branch Meningococcal B, [facility] 2016-03-07 Completed [facility] ersity of 00:00:00 [facility] Pneumococcal 13 2016-03-07 Completed [facility] Conjugate, PCV13 00:00:00 [facility] (Prevnar 13) Branch Meningococcal B, [facility] 2016-03-07 Completed [facility] ersity of 00:00:00 [facility] Pneumococcal 13 2016-03-07 Completed [facility] of Conjugate, PCV13 00:00:00 [place] [facility] (Prevnar 13) Branch Meningococcal B, [facility] 2016-03-07 Completed [facility] ersity of 00:00:00 [facility] Pneumococcal 13 2016-03-07 Completed [facility] of Conjugate, PCV13 00:00:00 [facility] (Prevnar 13) Branch Meningococcal B, V 2016-03-07 Completed [facility] ersity of 00:00:00 [facility] Pneumococcal 13 2016-03-07 Completed [facility] of Conjugate, PCV13 00:00:00 [place] [facility] (Prevnar 13) Branch Meningococcal B, [facility] 2016-03-07 Completed [facility] ersity of 00:00:00 [facility] Pneumococcal 13 2016-03-07 Completed [facility] of Conjugate, PCV13 00:00:00 [facility] (Prevnar 13) Branch Meningococcal B, [facility] 2016-03-07 Completed [facility] ersity of 00:00:00 [facility] Pneumococcal 13 2016-03-07 Completed [facility] of Conjugate, PCV13 00:00:00 [place] [facility] (Prevnar 13) Branch Meningococcal B, [facility] 2016-03-07 Completed [facility] ersity of 00:00:00 [facility] Pneumococcal 13 2016-03-07 Completed [facility] of Conjugate, PCV13 00:00:00 [place] [facility] (Prevnar 13) Branch Meningococcal B, [facility] 2016-03-07 Completed [facility] ersity of 00:00:00 [facility] Pneumococcal 13 2016-03-07 Completed [facility] of Conjugate, PCV13 00:00:00 [place] [facility] (Prevnar 13) Branch Meningococcal B, [facility] 2016-03-07 Completed [facility] ersity of 00:00:00 [facility] Pneumococcal 13 2016-03-07 Completed [facility] of Conjugate, PCV13 00:00:00 [place] [facility] (Prevnar 13) Branch Meningococcal B, [facility] 2016-03-07 Completed [facility] ersity of 00:00:00 [facility] Pneumococcal 13 2016-03-07 Completed [facility] of Conjugate, PCV13 00:00:00 [facility] (Prevnar 13) Branch Meningococcal B, [facility] 2016-03-07 Completed [facility] ersity of 00:00:00 [facility] Pneumococcal 13 2016-03-07 Completed [facility] of Conjugate, PCV13 00:00:00 [place] [facility] (Prevnar 13) Branch Meningococcal B, [facility] 2016-03-07 Completed [facility] ersity of 00:00:00 [facility] Pneumococcal 13 2016-03-07 Completed [facility] of Conjugate, PCV13 00:00:00 [facility] (Prevnar 13) Branch Meningococcal B, [facility] 2016-03-07 Completed [facility] ersity of 00:00:00 [facility] Pneumococcal 13 2016-03-07 Completed [facility] of Conjugate, PCV13 00:00:00 [facility] (Prevnar 13) Branch Meningococcal B, [facility] 2016-03-07 Completed Univ ersity of 00:00:00 [facility] Pneumococcal 13 2016-03-07 Completed [facility] of Conjugate, PCV13 00:00:00 [facility] (Prevnar 13) Branch Meningococcal B, [facility] 2016-03-07 Completed [facility] ersity of 00:00:00 [facility] Pneumococcal 13 2016-03-07 Completed [facility] of Conjugate, PCV13 00:00:00 [facility] dical (Prevnar 13) Branch Meningococcal B, [facility] 2016-03-07 Completed Univ ersity of 00:00:00 [facility] Pneumococcal 13 2016-03-07 Completed [facility] of Conjugate, PCV13 00:00:00 [facility] dical (Prevnar 13) Branch Meningococcal B, [facility] 2016-03-07 Completed [facility] ersity of 00:00:00 [facility] Pneumococcal 13 2016-03-07 Completed [facility] of Conjugate, PCV13 00:00:00 [facility] (Prevnar 13) Branch Meningococcal B, [facility] 2016-03-07 Completed [facility] ersity of 00:00:00 [facility] Pneumococcal 13 2016-03-07 Completed [facility] of Conjugate, PCV13 00:00:00 [facility] dical (Prevnar 13) Branch Meningococcal B, [facility] 2016-03-07 Completed [facility] ersity of 00:00:00 [facility] Pneumococcal 13 2016-03-07 Completed [facility] of Conjugate, PCV13 00:00:00 [facility] (Prevnar 13) Branch Meningococcal B, [facility] 2016-03-07 Completed [facility] ersity of 00:00:00 [facility] Pneumococcal 13 2016-03-07 Completed [facility] of Conjugate, PCV13 00:00:00 [facility] dical (Prevnar 13) Branch Meningococcal B, [facility] 2016-03-07 Completed [facility] ersity of 00:00:00 [facility] Pneumococcal 13 2016-03-07 Completed [facility] of Conjugate, PCV13 00:00:00 [facility] (Prevnar 13) Branch Meningococcal B, [facility] 2016-03-07 Completed [facility] ersity of 00:00:00 [facility] Pneumococcal 13 2016-03-07 Completed [facility] of Conjugate, PCV13 00:00:00 [facility] (Prevnar 13) Branch Meningococcal B, [facility] 2016-03-07 Completed [facility] ersity of 00:00:00 [facility] Pneumococcal 13 2016-03-07 Completed [facility] of Conjugate, PCV13 00:00:00 [facility] (Prevnar 13) Branch Meningococcal B, [facility] 2016-03-07 Completed [facility] ersity of 00:00:00 [facility] Pneumococcal 13 2016-03-07 Completed [facility] of Conjugate, PCV13 00:00:00 [facility] (Prevnar 13) Branch Meningococcal B, [facility] 2016-03-07 Completed [facility] ersity of 00:00:00 [facility] Pneumococcal 13 2016-03-07 Completed [facility] of Conjugate, PCV13 00:00:00 [facility] (Prevnar 13) Branch Meningococcal B, [facility] 2016-03-07 Completed [facility] ersity of 00:00:00 [facility] Pneumococcal 13 2016-03-07 Completed [facility] of Conjugate, PCV13 00:00:00 [facility] (Prevnar 13) Branch Meningococcal B, [facility] 2016-03-07 Completed [facility] ersity of 00:00:00 [facility] Pneumococcal 13 2016-03-07 Completed [facility] of Conjugate, PCV13 00:00:00 [facility] (Prevnar 13) Branch Meningococcal B, [facility] 2016-03-07 Completed [facility] ersity of 00:00:00 [facility] Pneumococcal 13 2016-03-07 Completed [facility] of Conjugate, PCV13 00:00:00 [facility] (Prevnar 13) Branch Meningococcal B, [facility] 2016-03-07 Completed [facility] of 00:00:00 [facility] Pneumococcal 13 2016-03-07 Completed [facility] of Conjugate, PCV13 00:00:00 [facility] (Prevnar 13) Branch Meningococcal B, [facility] 2016-03-07 Completed [facility] ers[facility] of 00:00:00 [facility] Pneumococcal 13 2016-03-07 Completed [facility] of Conjugate, PCV13 00:00:00 [facility] (Prevnar 13) Branch Meningococcal B, V 2016-03-07 Completed [facility] ers[facility] of 00:00:00 [facility] Pneumococcal 13 2016-03-07 Completed [facility] of Conjugate, PCV13 00:00:00 [place] [facility] (Prevnar 13) Branch Meningococcal B, V 2016-03-07 Completed [facility] ersity of 00:00:00 [facility] Pneumococcal 13 2016-03-07 Completed [facility] of Conjugate, PCV13 00:00:00 [facility] (Prevnar 13) Branch Meningococcal B, V 2016-03-07 Completed [facility] ers[facility] of 00:00:00 [facility] Pneumococcal 13 2016-03-07 Completed [facility] of Conjugate, PCV13 00:00:00 [place] [facility] (Prevnar 13) Branch Meningococcal B, V 2016-03-07 Completed [facility] of 00:00:00 [facility] Pneumococcal 13 2016-03-07 Completed [facility] of Conjugate, PCV13 00:00:00 [place] [facility] (Prevnar 13) Branch Meningococcal B, [facility] 2016-03-07 Completed [facility] ers[facility] of 00:00:00 [facility] Pneumococcal 13 2016-03-07 Completed [facility] of Conjugate, PCV13 00:00:00 [place] [facility] (Prevnar 13) Branch Meningococcal B, [facility] 2016-03-07 Completed [facility] ers[facility] of 00:00:00 [facility] Pneumococcal 13 2016-03-07 Completed [facility] of Conjugate, PCV13 00:00:00 [place] [facility] (Prevnar 13) Branch Meningococcal B, V 2016-03-07 Completed [facility] ers[facility] of 00:00:00 [facility] Pneumococcal 13 2016-03-07 Completed [facility] of Conjugate, PCV13 00:00:00 [place] [facility] (Prevnar 13) Branch Meningococcal B, [facility] 2016-03-07 Completed [facility] ers[facility] of 00:00:00 [facility] Pneumococcal 13 2016-03-07 Completed [facility] of Conjugate, PCV13 00:00:00 [place] [facility] (Prevnar 13) Branch Meningococcal B, V 2016-03-07 Completed [facility] ers[facility] of 00:00:00 [facility] Pneumococcal 13 2016-03-07 Completed [facility] of Conjugate, PCV13 00:00:00 [facility] dical (Prevnar 13) Branch Meningococcal B, V 2016-03-07 Completed [facility] ersity of 00:00:00 [facility] Pneumococcal 13 2016-03-07 Completed [facility] of Conjugate, PCV13 00:00:00 [place] [facility] (Prevnar 13) Branch Meningococcal B, V 2016-03-07 Completed [facility] ersity of 00:00:00 [facility] Pneumococcal 13 2016-03-07 Completed [facility] of Conjugate, PCV13 00:00:00 [facility] dical (Prevnar 13) Branch Meningococcal B, V 2016-03-07 Completed [facility] ersity of 00:00:00 [facility] Pneumococcal 13 2016-03-07 Completed [facility] of Conjugate, PCV13 00:00:00 [place] [facility] (Prevnar 13) Branch Meningococcal B, V 2016-03-07 Completed [facility] ers[facility] of 00:00:00 [facility] Pneumococcal 13 2016-03-07 Completed [facility] of Conjugate, PCV13 00:00:00 [facility] dical (Prevnar 13) Branch Meningococcal B, V 2016-03-07 Completed [facility] ersity of 00:00:00 [facility] Pneumococcal 13 2016-03-07 Completed [facility] of Conjugate, PCV13 00:00:00 [place] [facility] (Prevnar 13) Branch Meningococcal B, [facility] 2016-03-07 Completed [facility] ersity of 00:00:00 [facility] Pneumococcal 13 2016-03-07 Completed [facility] of Conjugate, PCV13 00:00:00 [facility] dical (Prevnar 13) Branch Meningococcal B, V 2016-03-07 Completed [facility] ersity of 00:00:00 [facility] Pneumococcal 13 2016-03-07 Completed [facility] of Conjugate, PCV13 00:00:00 [facility] dical (Prevnar 13) Branch Meningococcal B, V 2016-03-07 Completed [facility] ersity of 00:00:00 [facility] Pneumococcal 13 2016-03-07 Completed [facility] of Conjugate, PCV13 00:00:00 [place] [facility] (Prevnar 13) Branch Meningococcal B, [facility] 2016-03-07 Completed [facility] ersity of 00:00:00 [facility] Heamophilus Influenza 2015-11-13 Completed Uni versity of B 00:00:00 [facility] Heamophilus Influenza 2015-11-13 Completed Uni versity of B 00:00:00 [facility] Heamophilus Influenza 2015-11-13 Completed Uni versity of B 00:00:00 [facility] Heamophilus Influenza 2015-11-13 Completed Uni versity of B 00:00:00 [facility] Heamophilus Influenza 2015-11-13 Completed Uni versity of B 00:00:00 [facility] Heamophilus Influenza 2015-11-13 Completed Uni versity of B 00:00:00 [facility] Heamophilus Influenza 2015-11-13 Completed Uni versity of B 00:00:00 [facility] Heamophilus Influenza 2015-11-13 Completed Uni versity of B 00:00:00 [facility] Heamophilus Influenza 2015-11-13 Completed Uni versity of B 00:00:00 [facility] Heamophilus Influenza 2015-11-13 Completed Uni versity of B 00:00:00 [facility] Heamophilus Influenza 2015-11-13 Completed Uni versity of B 00:00:00 [facility] Heamophilus Influenza 2015-11-13 Completed [facility] vers[facility] of B 00:00:00 [facility] Heamophilus Influenza 2015-11-13 Completed Uni vers[facility] of B 00:00:00 [facility] Heamophilus Influenza 2015-11-13 Completed Uni versity of B 00:00:00 [facility] Heamophilus Influenza 2015-11-13 Completed [facility] vers[facility] of B 00:00:00 [facility] Heamophilus Influenza 2015-11-13 Completed Uni versity of B 00:00:00 [facility] Heamophilus Influenza 2015-11-13 Completed Uni versity of B 00:00:00 [facility] Heamophilus Influenza 2015-11-13 Completed Uni versity of B 00:00:00 [facility] Heamophilus Influenza 2015-11-13 Completed [facility] vers[facility] of B 00:00:00 [facility] Heamophilus Influenza 2015-11-13 Completed Uni versity of B 00:00:00 [facility] Heamophilus Influenza 2015-11-13 Completed [facility] vers[facility] of B 00:00:00 [facility] Heamophilus Influenza 2015-11-13 Completed Uni vers[facility] of B 00:00:00 [facility] Heamophilus Influenza 2015-11-13 Completed [facility] vers[facility] of B 00:00:00 [facility] Heamophilus Influenza 2015-11-13 Completed [facility] vers[facility] of B 00:00:00 [facility] Heamophilus Influenza 2015-11-13 Completed [facility] vers[facility] of B 00:00:00 [facility] Heamophilus Influenza 2015-11-13 Completed [facility] vers[facility] of B 00:00:00 [facility] Heamophilus Influenza 2015-11-13 Completed [facility] vers[facility] of B 00:00:00 [facility] Heamophilus Influenza 2015-11-13 Completed [facility] vers[facility] of B 00:00:00 [facility] Heamophilus Influenza 2015-11-13 Completed [facility] vers[facility] of B 00:00:00 [facility] Heamophilus Influenza 2015-11-13 Completed [facility] vers[facility] of B 00:00:00 [facility] Heamophilus Influenza 2015-11-13 Completed [facility] vers[facility] of B 00:00:00 [facility] Heamophilus Influenza 2015-11-13 Completed [facility] vers[facility] of B 00:00:00 [facility] Heamophilus Influenza 2015-11-13 Completed [facility] vers[facility] of B 00:00:00 [facility] Heamophilus Influenza 2015-11-13 Completed [facility] vers[facility] of B 00:00:00 [facility] Heamophilus Influenza 2015-11-13 Completed [facility] vers[facility] of B 00:00:00 [facility] Heamophilus Influenza 2015-11-13 Completed [facility] vers[facility] of B 00:00:00 [facility] Heamophilus Influenza 2015-11-13 Completed [facility] vers[facility] of B 00:00:00 [facility] Heamophilus Influenza 2015-11-13 Completed [facility] vers[facility] of B 00:00:00 [facility] Heamophilus Influenza 2015-11-13 Completed [facility] vers[facility] of B 00:00:00 [facility] Heamophilus Influenza 2015-11-13 Completed [facility] vers[facility] of B 00:00:00 [facility] Heamophilus Influenza 2015-11-13 Completed [facility] vers[facility] of B 00:00:00 [facility] Heamophilus Influenza 2015-11-13 Completed [facility] vers[facility] of B 00:00:00 [facility] Heamophilus Influenza 2015-11-13 Completed [facility] vers[facility] of B 00:00:00 [facility] Heamophilus Influenza 2015-11-13 Completed [facility] vers[facility] of B 00:00:00 [facility] Heamophilus Influenza 2015-11-13 Completed [facility] vers[facility] of B 00:00:00 [facility] Heamophilus Influenza 2015-11-13 Completed [facility] vers[facility] of B 00:00:00 [facility] Heamophilus Influenza 2015-11-13 Completed [facility] vers[facility] of B 00:00:00 [facility] Heamophilus Influenza 2015-11-13 Completed [facility] vers[facility] of B 00:00:00 [facility] Heamophilus Influenza 2015-11-13 Completed [facility] vers[facility] of B 00:00:00 [facility] Heamophilus Influenza 2015-11-13 Completed [facility] vers[facility] of B 00:00:00 [facility] Heamophilus Influenza 2015-11-13 Completed [facility] vers[facility] of B 00:00:00 [facility] Heamophilus Influenza 2015-11-13 Completed [facility] vers[facility] of B 00:00:00 [facility] Heamophilus Influenza 2015-11-13 Completed [facility] vers[facility] of B 00:00:00 [facility] Heamophilus Influenza 2015-11-13 Completed [facility] vers[facility] of B 00:00:00 [facility] Heamophilus Influenza 2015-11-13 Completed [facility] vers[facility] of B 00:00:00 [facility] Heamophilus Influenza 2015-11-13 Completed [facility] vers[facility] of B 00:00:00 [facility] Heamophilus Influenza 2015-11-13 Completed [facility] vers[facility] of B 00:00:00 [facility] Heamophilus Influenza 2015-11-13 Completed [facility] vers[facility] of B 00:00:00 [facility] Heamophilus Influenza 2015-11-13 Completed [facility] B 00:00:00 [facility] Meningococcal 2015-11-12 Completed University of Polysaccharide 00:00:00 [...] (MCV4P) TDAP 2015-10-31 Completed University of 00:00:00 [facility] TDAP 2015-10-31 Completed University of 00:00:00 [facility] TDAP 2015-10-31 Completed University of 00:00:00 [facility] TDAP 2015-10-31 Completed University of 00:00:00 [facility] TDAP 2015-10-31 Completed University of 00:00:00 [facility] TDAP 2015-10-31 Completed University of 00:00:00 [facility] TDAP 2015-10-31 Completed University of 00:00:00 [facility] TDAP 2015-10-31 Completed University of 00:00:00 [facility] TDAP 2015-10-31 Completed University of 00:00:00 [facility] TDAP 2015-10-31 Completed University of 00:00:00 [facility] TDAP 2015-10-31 Completed University of 00:00:00 [facility] TDAP 2015-10-31 Completed University of 00:00:00 [facility] TDAP 2015-10-31 Completed University of 00:00:00 [facility] TDAP 2015-10-31 Completed University of 00:00:00 [facility] TDAP 2015-10-31 Completed University of 00:00:00 [facility] TDAP 2015-10-31 Completed University of 00:00:00 [facility] TDAP 2015-10-31 Completed University of 00:00:00 [facility] TDAP 2015-10-31 Completed University of 00:00:00 [facility] TDAP 2015-10-31 Completed University of 00:00:00 [facility] TDAP 2015-10-31 Completed University of 00:00:00 [facility] TDAP 2015-10-31 Completed University of 00:00:00 [facility] TDAP 2015-10-31 Completed University of 00:00:00 [facility] TDAP 2015-10-31 Completed University of 00:00:00 [facility] TDAP 2015-10-31 Completed University of 00:00:00 [facility] TDAP 2015-10-31 Completed University of 00:00:00 [facility] TDAP 2015-10-31 Completed University of 00:00:00 [facility] TDAP 2015-10-31 Completed University of 00:00:00 [facility] TDAP 2015-10-31 Completed University of 00:00:00 [facility] TDAP 2015-10-31 Completed University of 00:00:00 [facility] TDAP 2015-10-31 Completed University of 00:00:00 [facility] TDAP 2015-10-31 Completed University of 00:00:00 [facility] TDAP 2015-10-31 Completed University of 00:00:00 [facility] TDAP 2015-10-31 Completed University of 00:00:00 [facility] TDAP 2015-10-31 Completed University of 00:00:00 [facility] TDAP 2015-10-31 Completed University of 00:00:00 [facility] TDAP 2015-10-31 Completed University of 00:00:00 [facility] TDAP 2015-10-31 Completed University of 00:00:00 [facility] TDAP 2015-10-31 Completed University of 00:00:00 [facility] TDAP 2015-10-31 Completed University of 00:00:00 [facility] TDAP 2015-10-31 Completed University of 00:00:00 [facility] TDAP 2015-10-31 Completed University of 00:00:00 [facility] TDAP 2015-10-31 Completed University of 00:00:00 [facility] TDAP 2015-10-31 Completed University of 00:00:00 [facility] TDAP 2015-10-31 Completed University of 00:00:00 [facility] TDAP 2015-10-31 Completed University of 00:00:00 [facility] TDAP 2015-10-31 Completed University of 00:00:00 [facility] TDAP 2015-10-31 Completed University of 00:00:00 [facility] TDAP 2015-10-31 Completed University of 00:00:00 [facility] TDAP 2015-10-31 Completed University of 00:00:00 [facility] TDAP 2015-10-31 Completed University of 00:00:00 [facility] TDAP 2015-10-31 Completed University of 00:00:00 [facility] TDAP 2015-10-31 Completed University of 00:00:00 [facility] TDAP 2015-10-31 Completed University of 00:00:00 [facility] TDAP 2015-10-31 Completed University of 00:00:00 [facility] TDAP 2015-10-31 Completed University of 00:00:00 [facility] TDAP 2015-10-31 Completed University of 00:00:00 [facility] TDAP 2015-10-31 Completed University of 00:00:00 [facility] TDAP 2015-10-31 Completed University of 00:00:00 [facility] TDAP 2015-10-31 Completed University of 00:00:00 [facility] Pneumococcal 2014-04-01 Completed University o f Polysaccharide, [...] Time Observation Value Comments Source Systolic blood 2022-08-24 14:41:00 115 mm[Hg] Univer sity of pressure [facility] Diastolic blood 2022-08-24 14:41:00 77 mm[Hg] Unive rsity of pressure [facility] Heart rate 2022-08-24 14:41:00 105 /min Universi ty of [facility] Body temperature 2022-08-24 14:41:00 36.61 Melissa Univ ersity of [facility] Body weight 2022-08-24 14:41:00 102.967 kg Universi ty of [facility] BMI 2022-08-24 14:41:00 41.52 kg/m2 Universi ty of [facility] Systolic blood 2022-07-27 13:03:00 112 mm[Hg] Univer sity of [facility] Diastolic blood 2022-07-27 13:03:00 75 mm[Hg] Unive rsity of [facility] Heart rate 2022-07-27 13:03:00 98 /min Universi ty of [facility] Body temperature 2022-07-27 13:03:00 36.83 Melissa Univ ersity of [facility] Body weight 2022-07-27 13:03:00 102.967 kg Universi ty of [facility] BMI 2022-07-27 13:03:00 41.52 kg/m2 Universi ty of [facility] Oxygen saturation in 2022-07-27 13:03:00 94 /min University Arterial blood by [facility] Pulse oximetry Branch Systolic blood 2022-06-17 15:45:00 104 mm[Hg] Univer sity of pressure [facility] Diastolic blood 2022-06-17 15:45:00 69 mm[Hg] Unive rsity of pressure [facility] Heart rate 2022-06-17 15:45:00 97 /min Universi ty of [facility] Body height 2022-06-17 15:45:00 157.5 cm Universi ty of [facility] Body weight 2022-06-17 15:45:00 101.878 kg Universi ty of [facility] BMI 2022-06-17 15:45:00 41.08 kg/m2 Universi ty of [facility] Oxygen saturation in 2022-06-17 15:45:00 98 /min University of Arterial blood by [facility] Pulse oximetry Branch Systolic blood 2022-06-15 13:01:00 101 mm[Hg] Univer sity of pressure [facility] Diastolic blood 2022-06-15 13:01:00 68 mm[Hg] Unive rsity of pressure [facility] Heart rate 2022-06-15 13:01:00 74 /min Universi ty of [facility] Body temperature 2022-06-15 13:01:00 36.89 Melissa Univ ersity of [facility] Body weight 2022-06-15 13:01:00 102.967 kg Universi ty of [facility] BMI 2022-06-15 13:01:00 41.52 kg/m2 Universi ty of [facility] Systolic blood 2022-03-27 12:44:00 131 mm[Hg] Univer sity of pressure [facility] Diastolic blood 2022-03-27 12:44:00 83 mm[Hg] Unive rsity of pressure [facility] Heart rate 2022-03-27 12:44:00 102 /min Universi ty of [facility] Body temperature 2022-03-27 12:44:00 37.11 Melissa Univ ersity of [facility] Respiratory rate 2022-03-27 12:44:00 18 /min Univ ersity of [facility] Body height 2022-03-27 12:44:00 157.5 cm Universi ty of [facility] Body weight 2022-03-27 12:44:00 96.616 kg Universi ty of [facility] BMI 2022-03-27 12:44:00 38.96 kg/m2 Universi ty of [facility] Oxygen saturation in 2022-03-27 12:44:00 98 /min University of Arterial blood by [facility] Pulse oximetry Branch Systolic blood 2022-03-02 15:40:00 113 mm[Hg] Univer sity of pressure [facility] Diastolic blood 2022-03-02 15:40:00 72 mm[Hg] Unive rsity of pressure [facility] Heart rate 2022-03-02 15:40:00 82 /min Universi ty of [facility] Respiratory rate 2022-03-02 15:40:00 16 /min [facility] Oxygen saturation in 2022-03-02 15:40:00 97 /min University of Arterial blood by [facility] Pulse oximetry Branch Body temperature 2022-03-02 15:23:00 36.28 Melissa [facility] Body weight 2022-02-24 17:00:00 100.245 kg [facility] BMI 2022-02-24 17:00:00 40.42 kg/m2 [facility] Systolic blood 2022-03-02 15:25:00 98 mm[Hg] Univer sity of pressure [facility] Diastolic blood 2022-03-02 15:25:00 55 mm[Hg] [facility] Heart rate 2022-03-02 15:25:00 85 /min [facility] Respiratory rate 2022-03-02 15:25:00 18 /min [facility] Oxygen saturation in 2022-03-02 15:25:00 100 /min [place] of Arterial blood by [facility] Pulse oximetry Branch Body temperature 2022-03-02 15:23:00 36.28 Melissa [facility] Body weight 2022-02-24 17:00:00 100.245 kg [facility] BMI 2022-02-24 17:00:00 40.42 kg/m2 [facility] Procedures Procedure Date / Time Performing Source Performed Clinician POCT HEMOGLOBIN A1C TEST 2022-08-24 Tray Jolly [facility] ity of 00:00:00 [facility] SARS-COV-2 COVID-19 CHRISTELLE-SUCROSE 2022-07-27 [facility] [place] of VACCINE 12 YRS+, BIVALENT 0.3ML, 13:13:29 [facility], (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) Br anch MEDICATION CORRESPONDENCE 2022-07-19 Doctor [facility] of 05:01:00 Unassigned, No [facility] DISABILITY/FMLA 2022-07-01 [facility] of 05:01:00 Unassigned, No [facility] MR THORACIC SPINE WO CONTRAST 2022-06-30 Stella Worley Un iversity of 16:22:01 [facility] MR CERVICAL SPINE WO CONTRAST 2022-06-30 Stella Worley iversity of 16:20:35 [facility] CONSENT/REFUSAL FOR DIAGNOSIS AND 2022-06-30 Doctor [facility] 14:32:21 Unassigned, No [facility] CONSENT/REFUSAL FOR DIAGNOSIS AND 2022-06-30 Doctor [facility] 14:32:20 Unassigned, No [facility] INSURANCE CORRESPONDENCE 2022-06-17 Doctor [facility] of 05:01:00 Unassigned, No [facility] 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 2022-06-01 Doctor [place] of 05:01:00 Unassigned, No [facility] 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 2022-05-13 Doctor [place] of 05:01:00 Unassigned, No [facility] DME/SUPPLY JUSTIFICATION 2022-05-06 Doctor [facility] ity of 05:01:00 Unassigned, No [facility] EMG/NCV 2022-04-08 Stella Worley [place] of 14:43:00 [facility] CONSENT/REFUSAL FOR DIAGNOSIS AND 2022-03-27 Doctor [facility] 12:40:53 Unassigned, No [facility] PHYSICIAN ORDERS 2022-03-19 [facility] 05:01:00 Unassigned, No [place] [facility] COLONOSCOPY (ENDO) 2022-03-02 [facility] of 14:43:32 [facility] 2022-03-02 [facility] of 14:43:32 [facility] COL[facility]OSCOPY 2022-03-02 [facility] 14:02:00 [facility] ESOPHAGOGASTRODUODENOSCOPY 2022-03-02 Márquez, [facility] ersity of 14:02:00 [facility] EGD (ENDO) 2022-03-02 [facility] of 13:53:24 [facility] EGD (ENDO) 2022-03-02 [facility] of 13:53:24 [facility] POCT GLUCOSE(AGE >30DAYS) 2022-03-02 [facility] of 12:59:00 [facility] POCT GLUCOSE(AGE >30DAYS) 2022-03-02 [facility] ersity of 12:59:00 [facility] POCT GLUCOSE (AUTOMATED) 2022-03-02 Cecile Márquez sity of 12:58:00 [facility] POCT GLUCOSE (AUTOMATED) 2022-03-02 Cecile Márquez sity of 12:58:00 [facility] POCT TEST 2022-03-02 [facility] of 12:48:00 [facility] POCT TEST 2022-03-02 [facility] of 12:48:00 [facility] DAY SURGERY - ADC 2022-03-02 Doctor University of 05:01:00 Unassigned, No [facility] Name Branch DME/SUPPLY JUSTIFICATION 2022-01-04 Doctor [facility] ity of 05:01:00 Unassigned, No [facility] Branch DME/SUPPLY JUSTIFICATION 2022-01-04 Doctor Univers ity of 05:01:00 Unassigned, No [facility] Name Branch DISCLOSURE AND CONSENT, MEDICAL 2021-12-28 [facility] of AND SURGICAL PROCEDURES 05:01:00 Unassigned, No [facility] dical Name Branch DISCLOSURE AND CONSENT, [facility] 2021-12-28 [facility] of AND SURGICAL PROCEDURES 05:01:00 Unassigned, No [facility] dical Name Branch Encounters Start End Encounter Admission Attending Care Care Encounter Source Date/Time Date/Time Type Type Clinicians Facility Department ID 2022-02-16 Outpatient Brock MÁRQUEZ [facility] MARCUS [id number] Univers 10:29:45 CECIEL flores [facility] 2021-12-01 Outpatient Brock MÁRQUEZ [facility] MARCUS [id number] Univers 13:05:09 CECILE flores [facility] 2021-11-04 Outpatient Brock MÁRQUEZ [facility] MARCUS [id number] Univers 15:43:22 CECILE flores [facility] 2021-07-27 Emergency [facility] [id number] Univers 19:11:28 ity of [facility] 2021-07-27 Emergency [facility] [id number] Univers 10:12:30 ity of [facility] 2021-07-27 Emergency [facility] [id number] Univers 06:35:13 ity of [facility] 2021-07-27 Emergency [facility] [id number] Univers 04:01:19 ity of [facility] 2021-07-26 Emergency [facility] [id number] Univers 12:06:22 ity of [facility] 2021-07-26 Emergency [facility] [id number] Univers 11:43:[facility]-22 2023-02-22 Outpatient R KIKAMICHELLEBRADFORD [facility] [id number] Univers 09:15:00 09:15:00 TRAY jay [facility] 2022-08-24 2022-08-24 Outpatient R RIK [facility] [id number] Univers 09:00:00 09:00:00 TRYA jay [facility] 2022-08-24 2022-08-24 [facility] 1.2.840.114 [id number] [facility] 09:00:00 09:00:[address] [facility] 350.1.13.10 it y of [facility] 4.2.7.2.686 Emanuel as JOLLY?BLEA [id number] Ne samirroshan JACOBS[address] MEDICAL OFFICE [facility] 2022-08-24 2022-08-24 Outpatient R RIK [facility] [id number] Univers 09:00:00 08:53:13 [facility] 2022-08-22 2022-08-22 [facility] 1.2.840.114 [id number] Univers 00:00:00 [facility]:00[facility]00 [facility] 350.1.13.10 ity [facility] 4.2.7.2.686 Emanuel as JOLLY?BLEA [id number] [address] MEDICAL OFFICE [facility] 2022-08-13 2022-08-13 Outpatient R WIL [facility] [id number] Univers 14:00:00 14:00:00 MATEO jay [facility] 2022-08-06 2022-08-06 Telephone [facility] 1.2.840.114 [id number] Univers 00:00:00 00:00:00 [facility] 350.1.13.10 it y of [place] 4.2.7.2.686 Emanuel as JOLLY?BLEA [id number] Ne dic[address] MEDICAL OFFICE BUILDING 2022-07-29 2022-07-29 [facility] 1.2.840.114 [id number] Univers 00:00:00 00:00:00 [facility] 350.1.13.10 it y of Scotty [facility] 4.2.7.2.686 Emanuel as JOLLY?BLEA [id number] [address] OFFICE [facility] 2022-07-27 2022-07-27 Outpatient [facility] [id number] Univers 08:00:00 08:25:43 TRAY y [facility] 2022-07-27 2022-07-27 Office [facility] 1.2.840.114 [id number] Univers 08:00:00 08:25:[address] [facility] 350.1.13.10 it y of [place] [facility] 4.2.7.2.686 Emanuel as JOLLY?BLEA [id number] [address] OFFICE [facility] 2022-07-19 2022-07-19 Orders Doctor CLAU 1.2.840.114 [id number] Univers 00:00:00 00:00:00 Only Unassigned, GRAYSON 350.1.13.10 ity of [place] [facility] 4.2.7.2.686 Emanuel as [id number] [address] 2022-07-08 2022-07-08 [facility] 1.2.840.114 [id number] Univers 00:00:00 00:00:00 [facility] 350.1.13.10 i ty of Scotty [facility] 4.2.7.2.686 [place] [id number] Ne samirroshan [address] 2022-07-07 2022-07-07 Outpatient R STELLA WORLEY [facility] [id number] Univers 00:00:00 00:00:00 STELLA WORLEY it y of [facility] 2022-07-01 2022-07-01 Orders Doctor CLAU Degroot.2.840.114 [id number] Univers 00:00:00 00:00:00 Only Unassigned, GRAYSON 350.1.13.10 ity of [place] [facility] 4.2.7.2.686 Emanuel as [id number] [address] 2022-06-30 2022-06-30 Outpatient R STELLA WORLEY [facility] [id number] Univers 09:34:33 23:59:00 STELLA WORLEY y of [facility] 2022-06-30 2022-06-30 [facility] Stella Worley 1.2.840.114 [id number] Univers 09:34:33 23:59:00 Encounter [place] 350.1.13.10 ity of [place] 4.2.7.2.686 [place] [facility] [id number] [address] 2022-06-30 2022-06-30 [facility] Stella Worley 1.2.840.114 [id number] Univers 09:34:16 23:59:00 Encounter [place] 350.1.13.10 ity of [place] 4.2.7.2.686 [place] [id number] [address] 2022-06-30 2022-06-30 Orders Doctor CLAU 1.2.840.114 [id number] Univers 00:00:00 00:00:00 Only Unassigned, GRAYSON 350.1.13.10 ity of [place] [facility] 4.2.7.2.686 Emanuel as [id number] [address] 2022-06-30 2022-06-30 Telephone Stella Worley 1.2.840.114 [id number] Univers 00:00:00 00:00:00 HEALTH 350.1.13.10 it y of [place] 4.2.7.2.686 [place] [id number] [address] OFFICE BUILDING 2022-06-24 2022-06-24 Outpatient R STELLA WORLEY [facility] [id number] Univers 00:00:00 00:00:00 STELLA WORLEY y of [facility] 2022-06-24 2022-06-24 Telephone Stella Worley 1.2.840.114 [id number] Univers 00:00:00 00:00:00 HEALTH 350.1.13.10 it y of [place] 4.2.7.2.686 [place] [id number] [address] OFFICE BUILDING 2022-06-21 2022-06-21 Outpatient R JESICABRADFORD [facility] [id number] Univers 11:00:00 11:00:00 TRAY ity of [facility] 2022-06-21 2022-06-21 Telephone [facility] 1.2.840.114 [id number] Univers 00:00:00 00:00:00 Tray HEALTH 350.1.13.10 it y of [place] 4.2.7.2.686 Emanuel as JOLLY?BLEA [id number] Ne gabi JACOBS[address] MEDICAL OFFICE BUILDING 2022-06-17 2022-06-17 Office Aiyana Stella [facility] 1.2.840.114 [id number] Univers 11:00:00 11:30:00 Visit HEALTH 350.1.13.10 it y of [place] 4.2.7.2.686 [place] [id number] [address] OFFICE BUILDING 2022-06-17 2022-06-17 Outpatient R STELLA WORLEY [facility] [id number] Univers 11:00:00 11:00:00 STELLA WORLEY it y of [facility] 2022-06-17 2022-06-17 Refill Stella Worley [facility] 1.2.840.114 [id number] Univers 00:00:00 00:00:00 HEALTH 350.1.13.10 it y of [place] 4.2.7.2.686 [place] [id number] [address] OFFICE BUILDING 2022-06-17 2022-06-17 Orders Doctor CLAU 1.2.840.114 [id number] Univers 00:00:00 00:00:00 Only Unassigned, GRAYSON 350.1.13.10 ity of [place] [facility] 4.2.7.2.686 Emanuel as [id number] [address] 2022-06-16 2022-06-16 [facility] 1.2.840.114 [id number] Univers 00:00:00 00:00:00 Tray HEALTH 350.1.13.10 it y of [place] 4.2.7.2.686 Emanuel as JOLLY?BLEA [id number] Ne gabi JACOBS[address] OFFICE BUILDING 2022-06-15 2022-06-15 Outpatient R GOLISANO [facility] [id number] Univers 08:00:00 08:25:29 TRAY flores [facility] 2022-06-15 2022-06-15 Office [facility] 1.2.840.114 [id number] Univers 08:00:00 08:25:[address] [facility] 350.1.13.10 it y of [place] 4.2.7.2.686 Emanuel as JOLLY?BLEA [id number] [address] OFFICE BUILDING 2022-06-14 2022-06-14 Telephone [facility] 1.2.840.114 [id number] Univers 00:00:00 00:00:00 Cecile GREGORIO 350.1.13.10 i ty of [place] 4.2.7.2.686 [place] STE[place]AN[place] [id number] Ne gabi [address] 2022-06-11 2022-06-11 Telephone [facility] 1.2.840.114 [id number] Univers 00:00:00 00:00:00 [facility] 350.1.13.10 it y of [place] 4.2.7.2.686 Emanuel as JOLLY?BLEA [id number] [address] OFFICE [facility] 2022-06-09 2022-06-09 Telephone [facility] 1.2.840.114 [id number] Univers 00:00:00 00:00:00 Tray HEALTH 350.1.13.10 it y of [place] 4.2.7.2.686 Emanuel as JOLLY?BLEA [id number] [address] OFFICE BUILDING 2022-06-04 2022-06-04 Stella Barrow [facility] 1.2.840.114 [id number] Univers 00:00:00 00:00:00 HEALTH 350.1.13.10 it [place] of [place]2.7.2.686 [place] JOHN [id number] [address] OFFICE BUILDING 2022-06-04 2022-06-04 Telephone NurseRy [facility] 1.2.840.114 [id number] Univers 00:00:00 00:00:00 Db HEALTH 350.1.13.10 it y of [place] 4.2.7.2.686 Emanuel as JOLLY?BLEA [id number] Ne gabi CHAIREZ 044 [facility] OFFICE [facility] 2022-06-04 2022-06-04 Refill [facility] [id number] [id number] Univers 00:00:00 00:00:00 Cecile JG 350.1.13.10 i ty of [facility] 4.2.7.2.686 [place] [id number] [facility] [address] [facility] 2022-06-03 2022-06-03 Outpatient R STELLA WORLEY [facility] [id number] Univers 09:30:00 09:30:00 STELLA WORLEY it y of [facility] 2022-06-02 2022-06-02 Stella Barrow [facility] 1.2.840.114 [id number] Univers 00:00:00 00:00:00 HEALTH 350.1.13.10 it y of [place] 4.2.7.2.686 [place] [id number] [address] OFFICE [facility] 2022-06-02 2022-06-02 Stella Barrow [facility] 1.2.840.114 [id number] Univers 00:00:00 00:00:00 HEALTH 350.1.13.10 it y of [place] 4.2.7.2.686 [place] [id number] [address] OFFICE [facility] 2022-06-02 2022-06-02 Telephone [facility] 1.2.840.114 [id number] Univers 00:00:00 00:00:00 Cecile BYERSCHRISTELLE 350.1.13.10 i ty of [place] 4.2.7.2.686 [place] [id number] [address] 2022-06-01 2022-06-01 Orders Doctor OLGUIN 1.2.840.114 [id number] Univers 00:00:00 00:00:00 Only Unassigned, GRAYSON 350.1.13.10 ity of [place] [facility] 4.2.7.2.686 Emanuel as [id number] [address] 2022-06-01 2022-06-01 Stella Barrow [facility] 1.2.840.114 [id number] Univers 00:00:00 00:00:00 HEALTH 350.1.13.10 it y of [place].2.686 [place] [id number] [address] OFFICE BUILDING 2022-06-01 2022-06-01 Susan Márquez [facility] 1.2.001.555 [id number] Univers 00:00:00 00:00:00 Cecilemichelle GREGORIO 350.1.13.10 i ty [facility] 4.2.7.2.686 [place] [id number] Ne gabi [facility] 188 [facility] 2022-05-28 2022-05-28 Reffranchesca Jolly [facility] 1.2.840.114 [id number] Univers 00:00:00 00:00:00 [facility] 350.1.13.10 it y of [place] BYERSCHRISTELLE 4.2.7.2.686 Emanuel as JOLLY?BLEA [id number] Ne gabi JACOBSEY 044 [facility] OFFICE [facility] 2022-05-26 2022-05-26 Stella Barrow [facility] 1.2.840.114 [id number] Univers 00:00:00 00:00:00 HEALTH 350.1.13.10 it y of [place].2.7.2.686 [place] [id number] [address] OFFICE [facility] 2022-05-18 2022-05-18 Outpatient R SANJAY SÁNCHEZ [facility] [id number] Univers 09:00:00 09:00:00 ity of [facility] 2022-05-17 2022-05-17 Outpatient Brock JOLLY [facility] [id number] Univers 09:00:00 09:00:00 TRAY ity [facility] 2022-05-13 2022-05-13 Orders Doctor OLGUIN 1.2.840.114 [id number] Univers 00:00:00 00:00:00 Only Unassigned, GRAYSON 350.1.13.10 ity of [place] [facility] 4.2.7.2.686 Emanuel as [id number] [address] 2022-05-13 2022-05-13 Telephone Rik [facility] 1.2.840.114 [id number] Univers 00:00:00 00:00:00 Tray HEALTH 350.1.13.10 it y of [place] 4.2.7.2.686 Emanuel as JOLLY?BLEA [phone] Ne gabi KISHORE [address] [place] [address] MEDICAL OFFICE BUILDING 2022-05-10 2022-05-10 Outpatient R RIK [facility] [id number] Univers 16:15:00 16:15:00 TRAY flores [facility] 2022-05-10 2022-05-10 Outpatient R STELLA WORLEY [facility] [id number] Univers 00:00:00 00:00:00 STELLA WORLEY it y of [facility] 2022-05-06 2022-05-06 Telephone Stella Worley [facility] 1.2.840.114 [id number] Univers 00:00:00 00:00:00 HEALTH 350.1.13.10 it y of [place] 4.2.7.2.686 [place] mitzy [place]OPE[place] [id number] [address] OFFICE [facility] 2022-05-06 2022-05-06 Orders Doctor CLAU 1.2.840.114 [id number] Univers 00:00:00 00:00:00 Only Unassigned, GRAYSON 350.1.13.10 ity of [place] [facility] 4.2.7.2.686 Emanuel as [id number] [address] 2022-04-29 2022-04-29 Outpatient R JEFF [facility] [id number] Univers 14:00:00 14:00:00 CLAU flores [facility] 2022-04-14 2022-04-14 Outpatient R VIK OLIVEIRA [facility] [id number] Univers 09:00:00 09:00:00 ity [facility] 2022-04-12 2022-04-12 Susan Pollard [facility] 1.2.840.114 [id number] Univers 00:00:00 00:00:00 Ricardo GREGORIO 350.1.13.10 ity of [place] 4.2.7.2.686 [place] [id number] Ne dical NAL 059 [facility] 2022-04-09 2022-04-09 Outpatient R MOMO [facility] [id number] Univers 11:00:00 11:00:00 ISAC ity of [facility] 2022-04-08 2022-04-08 [facility] 1.2.840.114 [id number] Univers 08:30:00 23:59:00 Encounter [facility] 350.1.13.10 ity of [place] 4.2.7.2.686 [place] [id number] [facility] [address] OFFICE [facility] 2022-04-08 2022-04-08 [facility] [id number] Univers 08:30:00 23:59:00 [facility] ity o f [facility] 2022-04-08 2022-04-08 Telephone Stella Worley [facility] 1.2.840.114 [id number] Univers 00:00:00 00:00:00 HEALTH 350.1.13.10 it y of [place] 4.2.7.2.686 [place] [id number] [facility] [address] OFFICE [facility] 2022-04-02 2022-04-02 [facility] [id number] Univers 09:30:00 09:30:00 MATEO itjay of [facility] 2022-03-31 2022-03-31 Telephone Rik [facility] 1.2.840.114 [id number] Univers 00:00:00 00:00:00 [facility] 350.1.13.10 it y of [place] 4.2.7.2.686 Emanuel as JOLLY?BLEA [phone] Ne samirroshan CHAIREZ 044 [facility] OFFICE [facility] 2022-03-27 2022-03-27 Emergency [facility] 1.2.229.332 [id number] Univers 07:48:00 08:22:00 Destiny GREGORIO 350.1.13.10 i ty of [place] 4.2.7.2.686 [place] [phone] [facility] [address] 2022-03-27 2022-03-27 Emergency X HIGHLAND, [facility] ERT [id number] Univers 07:48:00 08:22:00 DESTINY ity of [facility] 2022-03-27 2022-03-27 Orders Doctor CLAU 1.2.840.114 [id number] Univers 00:00:00 00:00:00 Only Unassigned, GRAYSON 350.1.13.10 ity of [place] [facility] 4.2.7.2.686 Emanuel as [id number] [address] 2022-03-24 2022-03-24 Telephone [facility] 1.2.840.114 [id number] Univers 00:00:00 00:00:00 Tray HEALTH 350.1.13.10 it y of [place] 4.2.7.2.686 Emanuel as JOLLY?BLEA [phone] [address] MEDICAL OFFICE [facility] 2022-03-19 2022-03-19 Telephone [facility] 1.2.840.114 [id number] Univers 00:00:00 00:00:00 Tray HEALTH 350.1.13.10 it y of [place] 4.2.7.2.686 Emanuel as JOLLY?BLEA [id number] [address] MEDICAL OFFICE [facility] 2022-03-19 2022-03-19 Orders Doctor CLAU 1.2.840.114 [id number] Univers 00:00:00 00:00:00 Only Unassigned, GRAYSON 350.1.13.10 ity of [place] [facility] 4.2.7.2.686 Emanuel as [id number] [address] 2022-03-17 2022-03-17 Telephone [facility] 1.2.840.114 [id number] Univers 00:00:00 00:00:00 Tray HEALTH 350.1.13.10 it y of [place] 4.2.7.2.686 Emanuel as JOLLY?BLEA [phone] [address] MEDICAL OFFICE [facility] 2022-03-12 2022-03-12 Stella Barrow [facility] 1.2.840.114 [id number] Univers 00:00:00 00:00:00 HEALTH 350.1.13.10 it y of [place] 4.2.7.2.686 [place] [id number] [facility] [address] OFFICE BUILDING 2022-03-08 2022-03-08 [facility] 1.2.840.114 [id number] Univers 00:00:00 00:00:00 Tray [facility] 350.1.13.10 it y of [place] 4.2.7.2.686 Emanuel as JOLLY?BLEA [phone] Ne gabi CHAIREZ [address] MEDICAL OFFICE BUILDING 2022-03-02 2022-03-02 Outpatient [facility] MARCUS [id number] Univers 07:39:00 11:22:00 CECILE ity of [facility] 2022-03-02 2022-03-02 [facility] 1.2.840.114 [id number] Univers 07:39:00 11:22:00 Encounter Cecile GREGORIO 350.1.13.10 ity of [place] 4.2.7.2.686 [place] SURGICAL [id number] [facility] [address] 2022-03-02 2022-03-02 Surgery [facility] 1.2.210.379 [id number] Univers 09:11:00 10:25:00 Cecile GREGORIO 350.1.13.10 i ty of [place] 4.2.7.2.686 [place] [id number] [facility] [address] 2022-03-02 2022-03-02 Orders Doctor CLAU 1.2.840.114 [id number] Univers 00:00:00 00:00:00 Only Unassigned, GRAYSON 350.1.13.10 ity of [place] [facility] 4.2.7.2.686 Emanuel as [id number] [facility] [address] 2022-03-01 2022-03-01 Telephone [facility] 1.2.840.114 [id number] Univers 00:00:00 00:00:00 Cecile GREGORIO 350.1.13.10 i ty of [place] 4.2.7.2.686 [place] [id number] Ne dical NAL 188 [facility] 2022-03-01 2022-03-01 Reffranchesca [facility] 1.2.840.114 [id number] Univers 00:00:00 00:00:00 Williamlarissa GREGORIO 350.1.13.10 ity [facility] 4.2.7.2.686 [place] [id number] Ne dicky NAL 059 [facility] 2022-02-25 2022-02-25 Outpatient R RIK [facility] [id number] Univers 11:00:00 11:00:00 TRAY ity [facility] 2022-02-25 2022-02-25 Telephone Stella Worley [facility] 1.2.840.114 [id number] Univers 00:00:00 00:00:00 HEALTH 350.1.13.10 it y of [place] 4.2.7.2.686 [place] [id number] [facility] [address] OFFICE BUILDING 2022-02-24 2022-02-24 [facility] 1.2.840.114 [id number] Univers 00:00:00 00:00:00 Tray HEALTH 350.1.13.10 it y of [place] 4.2.7.2.686 Emanuel as JOLLY?BLEA [id number] [facility] 044 [facility] OFFICE BUILDING 2022-02-23 2022-02-23 Telephone [facility] 1.2.840.114 [id number] Univers 00:00:00 00:00:00 Tray HEALTH 350.1.13.10 it y of [place] 4.2.7.2.686 Emanuel as JOLLY?BLEA [id number] [facility] 044 [facility] OFFICE BUILDING 2022-02-22 2022-02-22 Reffranchesca [facility] 1.2.840.114 [id number] Univers 00:00:00 00:00:00 Wondiful A HEALTH 350.1.13.10 ity of [place] 4.2.7.2.686 Emanuel as JOLLY?BLEA [phone] Ne gabi CHAIREZ [address] [place] [address] OFFICE [facility] 2022-02-18 2022-02-18 Patient [facility] 1.2.840.114 [id number] Univers 00:00:00 00:00:00 Secure Msg Tray [facility] 350.1.13.10 ity of [place] 4.2.7.2.686 Emanuel as JOLLY?BLEA [id number] Ne gabi CHAIREZ [address] [place] [address] OFFICE [facility] 2022-02-18 2022-02-18 Telephone [facility] 1.2.840.114 [id number] Univers 00:00:00 00:00:00 Tray GREGORIO 350.1.13.10 i ty of [place] 4.2.7.2.686 [place] [id number] Ne gabi BARNEY [address] [place] [address] 2022-02-16 2022-02-16 Outpatient R RIK [facility] [id number] Univers 09:15:00 09:30:10 TRAY [facility] 2022-02-16 2022-02-16 Office [facility] 1.2.840.114 [id number] Univers 09:15:00 09:30:[address] [facility] 350.1.13.10 it y of [place] 4.2.7.2.686 Emanuel as JOLLY?BLEA [id number] [address] OFFICE [facility] 2022-02-16 2022-02-16 Outpatient R RIK [facility] [id number] Univers 09:15:00 09:15:00 TRAY ity [facility] 2022-02-16 2022-02-16 Telephone Vik Oliveira [facility] 1.2.840.114 [id number] Univers 00:00:00 00:00:00 HEALTH 350.1.13.10 it y of [place] 4.2.7.2.686 [place] [id number] [address] OFFICE BUILDING 2022-02-15 2022-02-15 Outpatient R FLORENCE [facility] [id number] Univers 15:15:00 15:15:00 CAPRICE phillipsy of [facility] 2022-02-14 2022-02-14 Nurse CLAU Zarate 1.2.305.500 [id number] Univers 00:00:00 00:00:00 Triage Young GRAYSON 350.1.13.10 it y of HOSPITAL 4.2.7.2.686 Emanuel as [id number] [address] 2022-02-12 2022-02-12 Telephone Rik [facility] 1.2.840.114 [id number] Univers 00:00:00 00:00:00 Tray HEALTH 350.1.13.10 it y of [place] 4.2.7.2.686 Emanuel as JOLLY?BLEA [id number] Ne samirroshan JACOBS[address] OFFICE BUILDING 2022-02-11 2022-02-11 Telephone Stella Worley [facility] 1.2.840.114 [id number] Univers 00:00:00 00:00:00 HEALTH 350.1.13.10 it y of [place] 4.2.7.2.686 [place] [id number] [address] OFFICE BUILDING 2022-02-11 2022-02-11 Telephone Vik Oliveira [facility] 1.2.840.114 [id number] Univers 00:00:00 00:00:00 HEALTH 350.1.13.10 it y of [place] 4.2.7.2.686 [place] [id number] [address] OFFICE [facility] 2022-02-10 2022-02-10 Outpatient NAV GIANG [facility] [id number] Univers 00:00:00 00:00:00 ity of [facility] 2022-02-10 2022-02-10 Outpatient NAV GIANG [facility] [id number] Univers 00:00:00 00:00:00 ity of [facility] 2022-02-10 2022-02-10 Orders Doctor OLGUIN 1.2.840.114 [id number] Univers 00:00:00 00:00:00 Only Unassigned, GRAYSON 350.1.13.10 ity of [place] [facility] 4.2.7.2.686 Emanuel as [id number] [address] 2022-02-08 2022-02-08 Outpatient R STELLA WORLEY [facility] [id number] Univers 10:00:00 11:34:48 STELLA WORLEY it y of [facility] 2022-02-08 2022-02-08 Office Stella Worley [facility] 1.2.840.114 [id number] Univers 10:00:00 11:34:48 Visit HEALTH 350.1.13.10 it y of [place] 4.2.7.2.686 [place] mitzy [place]OPE[place] [id number] [address] OFFICE [facility] 2022-02-01 2022-02-01 Telephone [facility] 1.2.678.066 [id number] Univers 00:00:00 00:00:00 Isac S HEALTH 350.1.13.10 it y of [place] 4.2.7.2.686 Emanuel as JOLLY?BLEA [phone] [facility] 198 [facility] OFFICE [facility] 2022-01-28 2022-01-28 Orders Doctor CLAU 1.2.840.114 [id number] Univers 00:00:00 00:00:00 Only Unassigned, GRAYSON 350.1.13.10 ity of [place] [facility] 4.2.7.2.686 Emanuel as [id number] [address] 2022-01-27 2022-01-27 [facility]phone [facility] 1.2.840.114 [id number] Univers 00:00:00 00:00:00 Tray HEALTH 350.1.13.10 it y of [place] 4.2.7.2.686 Emanuel as JOLLY?BLEA [phone] [address] OFFICE [facility] 2022-01-27 2022-01-27 Telephone [facility] 1.2.840.114 [id number] Univers 00:00:00 00:00:00 Tray HEALTH 350.1.13.10 it y of [place] 4.2.7.2.686 Emanuel as JOLLY?BLEA [id number] [address] OFFICE [facility] 2022-01-27 2022-01-27 Telephone Vik Oliveira [facility] 1.2.840.114 [id number] Univers 00:00:00 00:00:00 HEALTH 350.1.13.10 it y of [place] 4.2.7.2.686 [place] [facility] [id number] [facility] [address] OFFICE [facility] 2022-01-25 2022-01-25 Out[facility] [id number] Univers 10:20:49 23:59:00 MATEO ity [facility] 2022-01-25 2022-01-25 [facility] 1.2.840.114 [id number] Univers 10:00:00 23:59:00 Encounter Mateo Dulce Maria JG 350.1.13.10 ity of [place] 4.2.7.2.686 [place] [facility] [id number] [facility] [address] 2022-01-25 2022-01-25 [facility] [id number] Univers 00:00:00 00:00:00 MATEO flores [facility] 2022-01-25 2022-01-25 Orders Doctor OLGUIN 1.2.840.114 [id number] Univers 00:00:00 00:00:00 Only Unassigned, GRAYSON 350.1.13.10 ity of [place] [facility] 4.2.7.2.686 Emanuel as [id number] [address] 2022-01-22 2022-01-22 [facility] 1.2.840.114 [id number] Univers 00:00:00 00:00:00 [facility] 350.1.13.10 it y of [place] 4.2.7.2.686 Emanuel as JOLLY?BLEA [id number] Ne gabi CHAIREZ [address] [place] [address] OFFICE [facility] 2022-01-22 2022-01-22 Orders Doctor CLAU 1.2.840.114 [id number] Univers 00:00:00 00:00:00 Only Unassigned, GRAYSON 350.1.13.10 ity of [place] [facility] 4.2.7.2.686 Emanuel as [id number] [address] 2022-01-21 2022-01-21 [facility] 1.2.840.114 [id number] Univers 00:00:00 00:00:00 Wondiful A HEALTH 350.1.13.10 ity of [place] 4.2.7.2.686 Emanuel as JOLLY?BLEA [id number] [facility] JACOBS[address] OFFICE [facility] 2022-01-20 2022-01-20 [facility] 1.2.840.114 [id number] Univers 00:00:00 00:00:00 Wondiful A HEALTH 350.1.13.10 ity of [place] 4.2.7.2.686 Emanuel as JOLLY?BLEA [phone] [facility] [address] 2022-01-19 2022-01-19 Telephone [facility] 1.2.840.114 [id number] Univers 00:00:00 00:00:00 Tray HEALTH 350.1.13.10 it y of [place] 4.2.7.2.686 Emanuel as JOLLY?BLEA [id number] [facility] [address] 2022-01-18 2022-01-18 [facility] 1.2.840.114 [id number] Univers 00:00:00 00:00:00 Tray HEALTH 350.1.13.10 it y of [place] 4.2.7.2.686 Emanuel as JOLLY?BLEA [phone] [facility] [address] 2022-01-13 2022-01-13 Telephone [facility] 1.2.840.114 [id number] Univers 00:00:00 00:00:00 Arnoldo [place] 350.1.13.10 i ty of [place] 4.2.7.2.686 [place] PROF[place] [id number] Ne gabi [address] 2022-01-11 2022-01-11 Outpatient Brock BARR [facility] [id number] Univers 14:45:00 23:59:00 ISAC ity of [facility] 2022-01-11 2022-01-11 Outpatient Brock BARR [facility] [id number] Univers 14:45:00 23:59:00 ISAC itjay [facility] 2022-01-11 2022-01-11 Office [facility] 1.2.840.114 [id number] Univers 13:45:00 14:00:00 Visit Isac S HEALTH 350.1.13.10 it y of [place] 4.2.7.2.686 Emanuel as JOLLY?BLEA [phone] Ne gabi CHAIREZ 198 [facility] OFFICE [facility] 2022-01-11 2022-01-11 [facility] [id number] Univers 13:45:00 13:45:00 ISAC flores [facility] 2022-01-07 2022-01-07 Telephone [facility] 1.2.840.114 [id number] Univers 00:00:00 00:00:00 Tray HEALTH 350.1.13.10 it y of [place] 4.2.7.2.686 Emanuel as JOLLY?BLEA [id number] Ne gabi CHAIREZ 044 [facility] OFFICE [facility] 2022-01-06 2022-01-06 Telephone [facility] 1.2.840.114 [id number] Univers 00:00:00 00:00:00 Wondiful A HEALTH 350.1.13.10 ity of [place] 4.2.7.2.686 Emanuel as JOLLY?BLEA [id number] Ne gabi CHAIREZ 044 [facility] OFFICE [facility] 2022-01-05 2022-01-05 Telephone [facility] 1.2.840.114 [id number] Univers 00:00:00 00:00:00 Tray HEALTH 350.1.13.10 it y of [place] 4.2.7.2.686 Emanuel as JOLLY?BLEA [id number] Ne gabi CHAIREZ 044 [facility] OFFICE [facility] 2022-01-04 2022-01-04 Telephone [facility] 1.2.840.114 [id number] Univers 00:00:00 00:00:00 Tray HEALTH 350.1.13.10 it y of [place] 4.2.7.2.686 Emanuel as JOLLY?BLEA [id number] Ne gabi CHAIREZ 044 [facility] 2021-12-31 2021-12-31 Telephone [facility] 1.2.840.114 [id number] Univers 00:00:00 00:00:00 [facility] 350.1.13.10 it y of [place] 4.2.7.2.686 Emanuel as JOLLY?BLEA [id number] Ne gabi CHAIREZ 044 [facility] 2021-12-31 2021-12-31 Telephone [facility] 1.2.840.114 [id number] Univers 00:00:00 00:00:00 [facility] 350.1.13.10 it y of [place] 4.2.7.2.686 Emanuel as JOLLY?BLEA [phone] Ne gabi CHAIREZ 044 [facility] 2021-12-30 2021-12-30 Patient [facility] 1.2.840.114 [id number] Univers 00:00:00 00:00:00 Outreach [facility] 350.1.13.10 [facility]y [facility] 4.2.7.2.686 Emanuel as PROFESSIO [phone] Ne gabi BARNEY 044 [facility] 2021-12-28 2021-12-28 Outpatient [facility] [id number] Univers 09:30:00 10:07:08 [facility] 2021-12-28 2021-12-28 Outpatient R [facility] [id number] Univers 09:30:00 10:07:08 [facility] 2021-12-28 2021-12-28 Office [facility] 1.2.665.724 [id number] Univers 09:30:00 10:07:08 Visit Cecile [place] 350.1.13.10 i ty of [place] 4.2.7.2.686 [place] [phone] Ne gabi BARNEY 188 [facility] 2021-12-24 2021-12-24 Outpatient R [facility] [id number] Univers 14:00:00 14:00:00 ity [facility] 2021-12-24 2021-12-24 Patient [facility] 1.2.840.114 [id number] Univers 00:00:00 00:00:00 Secure Msg Tray HEALTH 350.1.13.10 ity of [place] 4.2.7.2.686 Emanuel as JOLLY?BLEA [id number] [facility] CONTRERAS 044 [facility] OFFICE [facility] 2021-12-22 2021-12-22 Telephone [facility] 1.2.840.114 [id number] Univers 00:00:00 00:00:00 Cecile [place] 350.1.13.10 i ty of [place] 4.2.7.2.686 [place] [phone] Ne gabi [facility] 188 [facility] 2021-12-16 2021-12-16 Telephone [facility] 1.2.840.114 [id number] Univers 00:00:00 00:00:00 Tray HEALTH 350.1.13.10 it y of [place] 4.2.7.2.686 Emanuel as JOLLY?BLEA [id number] [address] 2021-12-11 2021-12-11 Surgery [facility] 1.2.392.242 [id number] [facility] 10:33:00 11:46:00 Cecile [place] 350.1.13.10 i [place] [id number] [address] 2021-12-11 2021-12-11 Surgery [facility] [id number] Univers 10:33:00 11:46:00 Cecile [place] 350.1.13.10 i [place] [id number] [address] 2021-12-11 2021-12-11 Surgery [facility] [id number] [id number] Univers 10:33:00 11:46:00 Cecile [place] 350.1.13.10 i [place] [id number] [address] 2021-12-11 2021-12-11 Outpatient R [facility] MARCUS [id number] Univers 08:40:00 11:25:00 CECILE jay [facility] 2021-12-11 2021-12-11 [facility] 1.2.840.114 [id number] Univers 08:40:00 11:25:00 [facility]counter [facility] 350.1.13.10 [place] [phone] [facility] [address] [place] 2021-12-11 2021-12-11 Outpatient R [facility] MARCUS [id number] Univers 08:40:00 11:25:00 CECILE itjay [facility] 2021-12-11 2021-12-11 Outpatient R [facility] M[facility]US [id number] Univers 08:40:00 11:25:00 [facility] 2021-12-11 2021-12-11 Orders Doctor CLAU 1.2.840.114 [id number] Univers 00:00:00 00:00:00 Only Unassigned, GRAYSON 350.1.13.10 ity of [place] [facility] 4.2.7.2.686 Emanuel as [id number] [address] 2021-12-09 2021-12-09 [facility] 1.2.840.114 [id number] Univers 00:00:00 00:00:00 Wonful A HEALTH 350.1.13.10 [facility] 4.2.7.2.686 Emanuel as JOLLY?BLEA [id number] [address] MEDICAL OFFICE BUILDING 2021-12-08 2021-12-08 Outpatient R [facility] [id number] Univers 13:00:00 13:00:00 ity [facility] 2021-12-08 2021-12-08 [facility]phone [facility] 1.2.840.114 [id number] Univers 00:00:00 00:00:00 Tray HEALTH 350.1.13.10 it y of [place] 4.2.7.2.686 Emanuel as JOLLY?BLEA [id number] [address] OFFICE [facility] 2021-12-08 2021-12-08 [facility] 1.2.840.114 [id number] Univers 00:00:00 00:00:00 Tray HEALTH 350.1.13.10 it y of [place] 4.2.7.2.686 Emanuel as JOLLY?BLEA [id number] [address] 2021-12-03 2021-12-03 Outpatient R MARITZA [facility] [id number] Univers 13:30:00 13:30:00 ORPHEUS ity of [facility] 2021-12-03 2021-12-03 [facility]phone [facility] 1.2.840.114 [id number] Univers 00:00:00 00:00:00 Cecile [place] 350.1.13.10 i [place] [id number] [address] 2021-12-03 2021-12-03 [facility]phone [facility] 1.2.840.114 [id number] Univers 00:00:00 00:00:00 Wondiful A HEALTH 350.1.13.10 ity of [place] 4.2.7.2.686 Emanuel as PROFESSIO [id number] [address] 2021-12-01 2021-12-01 [facility] [id number] Univers 14:15:00 14:54:12 WONDIFUL ity o f [facility] 2021-12-01 2021-12-01 Office [facility] 1.2.840.114 [id number] Univers 14:15:00 14:54:12 Visit Wondiful A HEALTH 350.1.13.10 ity of [place] 4.2.7.2.686 Emanuel as JOLLY?BLEA [id number] [address] OFFICE [facility] 2021-12-01 2021-12-01 Out[facility] [id number] Univers 14:15:00 14:54:12 WONDIFUL ity o f [facility] 2021-12-01 2021-12-01 Patient Scot [facility] 1.2.840.114 [id number] Univers 00:00:00 00:00:00 Outreach Vik Fleming [facility] 350.1.13.10 i ty of [facility] 4.2.7.2.686 Emanuel as JOLLY?BLEA [id number] [address] MEDICAL OFFICE [facility] 2021-12-01 2021-12-01 Patient Scot [facility] 1.2.840.114 [id number] Univers 00:00:00 00:00:00 Outreach Vik Fleming [facility] 350.1.13.10 i ty [facility] 4.2.7.2.686 Emanuel as JOLLY?BLEA [id number] [address] MEDICAL OFFICE [facility] 2021-11-18 2021-11-18 Outpatient R NISA [facility] [id number] Univers 10:00:00 10:44:34 WONDIFUL ity o f [facility] 2021-11-18 2021-11-18 Outpatient R NISA [facility] [id number] Univers 10:00:00 10:44:34 WONDIFUL ity o f [facility] 2021-11-18 2021-11-18 Outpatient R NISA [facility] [id number] Univers 10:00:00 10:00:00 WONDIFUL ity o f [facility] 2021-11-18 2021-11-18 Outpatient R NISA [facility] [id number] Univers 10:00:00 10:00:00 WONDIFUL ity o f [facility] 2021-11-18 2021-11-18 Outpatient R NISA [facility] [id number] Univers 10:00:00 10:00:00 WONDIFUL ity o f [facility] 2021-11-16 2021-11-16 Outpatient Brock MÁRQUEZ [facility] [id number] Univers 09:30:00 09:30:00 CECILE flores of [facility] 2021-11-16 2021-11-16 Outpatient Brock MÁRQUEZ [facility] [id number] Univers 09:30:00 09:30:00 CECILE flores [facility] 2021-11-16 2021-11-16 Outpatient R WILLI [facility] [id number] Univers 09:30:00 09:30:00 CECILE flores [facility] 2021-11-15 2021-11-15 Emergency X [facility] ERT [id number] Univers 09:06:00 12:49:00 DESTINY flores [facility] 2021-11-15 2021-11-15 Emergency [facility] 1.2.184.093 [id number] Univers 09:06:00 12:49:00 Destiny [place] 350.1.13.10 i ty of [place] [id number] [address] 2021-11-15 2021-11-15 Emergency X [facility] ERT [id number] Univers 09:06:00 12:49:00 DESTINY flores [facility] 2021-11-10 2021-11-10 Telephone [facility] 1.2.840.114 [id number] Univers 00:00:00 00:00:00 Wondiful A HEALTH 350.1.13.10 ity of [place] 4.2.7.2.686 Emanuel as JOLLY?BLEA [id number] [address] MEDICAL OFFICE [facility] 2021-11-05 2021-11-05 Orders Doctor CLAU 1.2.840.114 [id number] Univers 00:00:00 00:00:00 Only Unassigned, GRAYSON 350.1.13.10 ity of [place] [facility] 4.2.7.2.686 Emanuel as [phone] [facility] 00[address] [place] 2021-11-05 2021-11-05 Telephone [facility] 1.2.840.114 [id number] Univers 00:00:00 00:00:00 Wondiful A HEALTH 350.1.13.10 ity of [place] 4.2.7.2.686 Emanuel as JOLLY?BLEA [phone] [address] MEDICAL OFFICE [facility] 2021-11-03 2021-11-03 Telephone [facility] 1.2.840.114 [id number] Univers 00:00:00 00:00:00 Wondiful A HEALTH 350.1.13.10 ity of [place] 4.2.7.2.686 Emanuel as JOLLY?BLEA [phone] [facility] JACOBSEY 044 [facility] OFFICE [facility] 2021-11-03 2021-11-03 Telephone [facility] 1.2.840.114 [id number] Univers 00:00:00 00:00:00 Wondiful A HEALTH 350.1.13.10 ity of [facility] 4.2.7.2.686 Emanuel as JOLLY?BLEA [phone] [address] OFFICE [facility] 2021-10-27 2021-10-27 Case Sanjay Sánchez 1.2.840.114 [id number] Univers 00:00:00 00:00:00 Management H 350.1.13.10 ity of [facility] 4.2.7.2.686 Emanuel as [id number] [address] 2021-10-26 2021-10-26 Telephone Sanjay Sánchez 1.2.840.114 [id number] Univers 00:00:00 00:00:00 H 350.1.13.10 it y of [facility] 4.2.7.2.686 Emanuel as [phone] [address] 2021-10-23 2021-10-23 Telephone [facility] 1.2.722.745 [id number] Univers 00:00:00 00:00:00 Corry A ZEESHANTON 350.1.13.10 ity of [place] [id number] [facility] [address] [facility] 2021-10-22 2021-10-22 Outpatient Brock BARR [facility] [id number] Univers 14:45:00 14:45:00 ISAC mark [facility] 2021-10-22 2021-10-22 Outpatient Brock BARR [facility] [id number] Univers 14:45:00 14:45:00 ISAC itjay [facility] 2021-10-22 2021-10-22 Outpatient R MOMO [facility] [id number] Univers 14:45:00 14:45:00 [facility] 2021-10-22 2021-10-22 Outpatient R MOMO [facility] [id number] Univers 14:45:00 14:45:00 ISAC [facility] 2021-10-19 2021-10-19 Telephone [facility] 1.2.840.114 [id number] Univers 00:00:00 00:00:00 Wondiful A HEALTH 350.1.13.10 ity of [place] 4.2.7.2.686 Emanuel as JOLLY?BLEA [phone] Ne dicroshan JACOBSEY 044 [facility] OFFICE [facility] 2021-10-13 2021-10-13 Outpatient R JAYMIE [facility] [id number] Univers 10:30:00 10:41:12 CORRY alanjay [facility] 2021-10-13 2021-10-13 Office [facility] 1.2.840.114 [id number] Univers 10:30:00 10:41:12 Visit Corry [facility] 350.1.13.10 ity [facility] 4.2.7.2.[place] [phone] Ne dicroshan BARNEY [address] [facility] 2021-10-13 2021-10-13 Outpatient R JAYMIE [facility] [id number] Univers 10:30:00 10:41:12 CORRY alanjay [facility] 2021-09-29 2021-09-29 Outpatient R FLORENCE [facility] [id number] Univers 16:14:01 23:59:00 CAPRICE phillipsjay [facility] 2021-09-29 2021-09-29 Outpatient R FLORENCE [facility] [id number] Univers 16:14:01 23:59:00 CAPRICE phillipsjay [facility] 2021-09-29 2021-09-29 [facility] 1.2.840.114 [id number] Univers 16:14:01 23:59:00 Encounter Caprice L HEALTH 350.1.13.10 ity of [place] 4.2.7.2.686 Emanuel as JOLLY?BLEA [id number] Ne dical CONTRERAS 809 [facility] OFFICE [facility] 2021-09-29 2021-09-29 Outpatient R FLORENCE [facility] [id number] Univers 16:14:01 23:59:00 [facility] 2021-09-29 2021-09-29 Office Momo [facility] 1.2.840.114 [id number] Univers 16:00:00 16:58:02 Visit [facility] 350.1.13.10 it y of [place] 4.2.7.2.686 Emanuel as JOLLY?BLEA [phone] Ne gabi CONTRERAS [facility] 2021-09-29 2021-09-29 Outpatient Brock BARR [facility] [id number] Univers 16:00:00 16:58:02 [facility] 2021-09-29 2021-09-29 Outpatient Brock BARR [facility] [id number] Univers 16:00:00 16:58:02 [facility] 2021-09-29 2021-09-29 Outpatient Brock BARR [facility] [id number] Univers 16:00:00 16:00:00 [facility] 2021-09-24 2021-09-24 Outpatient Brock BARR [facility] [id number] Univers 14:00:00 14:00:00 [facility] 2021-09-19 2021-09-19 Nurse Caprice Ozuna 1.2.840.114 [id number] Univers 00:00:00 00:00:00 Triage GRAYSON 350.1.13.10 it y of [facility] 4.2.7.2.686 Emanuel as [id number] [address] 2021-09-09 2021-09-09 Prep For Jaymie [facility] 1.2.840.114 [id number] Univers 00:00:00 00:00:00 Surgery Corry GREGORIO 350.1.13.10 ity of [place] [phone] Ne gabi BARNEY 204 [facility] 2021-09-08 2021-09-08 Office Willi [facility] 1.2.395.910 [id number] Univers 14:30:00 16:16:36 Visit Cecile GREGORIO 350.1.13.10 i ty [facility] 4.2.7.2.[place] [phone] Ne dical [address] 2021-09-08 2021-09-08 Outpatient [facility] [id number] Univers 14:30:00 16:16:36 CECILE flores [facility] 2021-09-08 2021-09-08 Outpatient [facility] [id number] Univers 14:30:00 16:16:36 CECILE flores [facility] 2021-09-08 2021-09-08 Outpatient [facility] [id number] Univers 14:30:00 14:30:00 CECILE [facility] 2021-09-08 2021-09-08 Orders Doctor CLAU 1.2.840.114 [id number] Univers 00:00:00 00:00:00 Only Unassigned, GRAYS[place] 350.1.13.10 ity [facility] 4.2.7.2.686 Emanuel as [phone] [address] 2021-09-02 2021-09-02 Outpatient Brock [facility] [id number] Univers 14:00:00 14:00:00 [facility] 2021-08-31 2021-08-31 Orders Doctor OLGUIN 1.2.840.114 [id number] Univers 00:00:00 00:00:00 Only Unassigned, GRAYS[place] 350.1.13.10 ity [facility] 4.2.7.2.686 Emanuel as [phone] [address] 2021-08-26 2021-08-26 Outpatient Brock PAULA [facility] [id number] Univers 10:45:00 11:58:51 WONDIFUL ity o f [facility] 2021-08-26 2021-08-26 Outpatient Brock PAULA [facility] [id number] Univers 10:45:00 11:58:51 WONDIFUL ity o f [facility] 2021-08-262021-08-26 Outpatient R NISA [facility] [id number] Univers 10:45:00 11:58:51 WONDIFUL ity o f [facility] 2021-08-26 2021-08-26 Outpatient R NISA [facility] [id number] Univers 10:45:00 11:58:51 WONDIFUL ity o f [facility] 2021-08-26 2021-08-26 Office [facility] 1.2.840.114 [id number] Univers 10:34:47 11:58:51 Visit Wondiful A HEALTH 350.1.13.10 ity of [place] 4.2.7.2.686 Emanuel as JOLLY?BLEA [id number] [address] MEDICAL OFFICE [facility] 2021-08-17 2021-08-17 Case [facility] 1.2.840.114 [id number] Univers 00:00:00 00:00:00 Management Wondiful A HEALTH 350.1.13.10 ity of [place] 4.2.7.2.686 Emanuel as JOLLY?BLEA [id number] [address] MEDICAL OFFICE [facility] 2021-08-13 2021-08-13 Outpatient R NISA [facility] [id number] Univers 07:58:20 23:59:00 WONDIFUL ity o f [facility] 2021-08-13 2021-08-13 Hospital [facility] 1.2.179.805 [id number] Univers 07:58:20 23:59:00 Encounter Wondiful A [place] 350.1.13.10 ity of [place].2.[place] [phone] [facility] 806 [place] 2021-08-13 2021-08-13 Outpatient R NISA [facility] [id number] Univers 07:58:20 23:59:00 WONDIFUL ity o f [facility] 2021-08-13 2021-08-13 Physician Gynecologist Zachariah, Kevin [facility] Main [facility] 1.2.8 40.114 [id number] Univers 07:57:57 08:12:57 Visit Bunny Pauladiful A [place] 350.1.13. 10 ity of [facility] 4.2.7.2.686 [place] [phone] Ne dical SAVITA [address] BUILDING 2021-08-13 2021-08-13 Outpatient R NISA [facility] [id number] Univers 00:00:00 00:00:00 WONDIFUL ity o f [facility] 2021-08-04 2021-08-04 Outpatient R NISA [facility] [id number] Univers 15:30:00 15:42:52 WONDIFUL ity o f [facility] 2021-08-04 2021-08-04 Outpatient R NISA [facility] [id number] Univers 15:30:00 15:42:52 WONDIFUL ity o f [facility] 2021-08-04 2021-08-04 Outpatient R NISA [facility] [id number] Univers 15:30:00 15:42:52 WONDIFUL ity o f [facility] 2021-08-04 2021-08-04 Outpatient R NISA [facility] [id number] Univers 15:30:00 15:42:52 WONDIFUL ity o f [facility] 2021-08-04 2021-08-04 Outpatient R NISA [facility] [id number] Univers 15:30:00 15:42:52 WONDIFUL ity o f [facility] 2021-08-04 2021-08-04 Office [facility] 1.2.840.114 [id number] [facility] Univers 14:30:05 15:42:52 Visit Wondiful A [facility] 350.1.13.10 ity of [facility] 4.2.7.2.686 Emanuel as JOLLY?BLEA [phone] Ne dical EY [address] [place] [address] MEDICAL OFFICE BUILDING 2021-08-04 2021-08-04 [facility] [id number] Univers 15:30:00 15:30:00 WONDIFUL ity o f [facility] 2021-08-03 2021-08-03 Pre Visit CLAU Edmondson 1.2.840.114 [id number] Univers 00:00:00 00:00:00 Shanice Fleming [place] 350.1.13.10 i ty of [facility] 4.2.7.2.686 Emanuel as [id number] [place] [address] 2021-07-15 2021-07-15 Outpatient [facility] [id number] Univers 14:20:00 14:20:00 SHORTY ity o [facility] 2021-07-15 2021-07-15 Outpatient R [facility] [id number] Univers 14:20:00 14:20:00 SHORTY ity o [facility] 2021-07-15 2021-07-15 Outpatient R [facility] [id number] Univers 14:20:00 14:20:00 SHORTY ity o [facility] 2021-07-15 2021-07-15 Outpatient R [facility] [id number] Univers 14:20:00 14:20:00 [facility] 2021-07-14 2021-07-14 Reffranchesca [facility]UN[facility] 1.2.840.114 [id number] Univers 00:00:00 00:00:00 Wondiful A Health 350.1.13.10 ity of [place] 4.2.7.2.686 Emanuel as Professio [phone] [address] One 2021-07-10 2021-07-10 Outpatient Kautz_S DMG DMG [id number] Devoted 05:13:00 05:13:00 1015 [facility] l [facility] 2021-07-02 2021-07-02 [facility] 1.2.840.114 [id number] Univers 00:00:00 00:00:00 Wondiful A Health 350.1.13.10 ity of [place] 4.2.7.2.686 Emanuel as Professio [phone] [address] One 2021-06-15 2021-06-15 Orders Doctor OLGUIN 1.2.840.114 [id number] Univers 00:00:00 00:00:00 Only Unassigned, GRAYSON 350.1.13.10 ity of [place] [facility] 4.2.7.2.686 Emanuel as [id number] [facility] [address] 2021-06-08 2021-06-08 Patient Grupo Garcia 1.2.840.114 [id number] Univers 00:00:00 00:00:00 Outreach Emily Chavarria 350.1.13.10 ity of [place].2.[place] [id number] [facility] [address] 2021-06-08 2021-06-08 Susan Vik Oliveira [facility] 1.2.840.114 [id number] Univers 00:00:00 00:00:00 Health 350.1.13.10 it y of [place]2.[place].2.686 [place] [id number] [place] 7[address] [place] Office Building 2021-05-25 2021-05-25 [facility] [id number] Univers 18:22:00 20:23:00 [facility] 2021-05-25 2021-05-25 Emergency [facility], [facility] ERT [id number] Univers 18:22:00 20:23:00 [facility] ity [facility] 2021-05-25 2021-05-25 Emergency [facility], [facility] ERT [id number] Univers 18:22:00 20:23:00 [facility] ity [facility] 2021-05-25 2021-05-25 Emergency [facility], [facility] ERT [id number] Univers 18:22:00 20:23:00 [facility] ity [facility] 2021-05-25 2021-05-25 Emergency [facility], [facility] ERT [id number] Univers 18:22:00 20:23:00 [facility] ity [facility] 2021-05-25 2021-05-25 Emergency [facility] 1.2.598.793 [id number] Univers 18:22:00 20:23:00 Laureen G Jg 350.1.13.10 ity of [place] 4.2.7.2.686 [place] [phone] [place] 481374 [place] 2021-05-21 2021-05-21 Outpatient R LAILA ORELLANA [facility] [id number] Univers 09:30:00 09:30:00 LAILA ORELLANA i [facility] 2021-05-19 2021-05-19 Refill Nisa [facility] 1.2.840.114 [id number] Univers 00:00:00 00:00:00 [facility] 350.1.13.10 ity [facility] 4.2.7.2.686 Emanuel as Professio [phone] Ne dical [facility] [address] Office Building One 2021-05-14 2021-05-14 Outpatient R SANJAY SÁNCHEZ [facility] [id number] Univers 09:00:00 09:00:00 [facility] 2021-05-09 2021-05-09 Outpatient DMG [facility] [id number] Devoted 11:00:00 11:00:00 0814 Medica l Group 2021-05-08 2021-05-08 Outpatient R FLORENCE [facility] [id number] Univers 07:37:21 23:59:00 [facility] 2021-05-08 2021-05-08 Outpatient R FLORENCE [facility] [id number] Univers 07:37:21 23:59:00 [facility] 2021-05-08 2021-05-08 Outpatient R FLORENCE [facility] [id number] Univers 07:37:21 23:59:00 [facility] 2021-05-08 2021-05-08 Outpatient R FLORENCE [facility] [id number] Univers 07:37:21 23:59:00 [facility] 2021-05-08 2021-05-08 Outpatient R MOMO [facility] [id number] Univers 08:15:00 08:15:00 ISAC [facility] 2021-05-07 2021-05-07 Outpatient DMG DM [id number] Devoted 12:00:00 12:00:00 0812 Medica l Group 2021-04-27 2021-04-27 Reffranchesca Prasad [facility] 1.2.840.114 [id number] Univers 00:00:00 00:00:00 [facility] 350.1.13.10 it y justin [place] 4.2.7.2.686 Emanuel as MAIIO [phone] Ne dical [place] [address] [address] OFFICE [facility] ONE 2021-04-21 2021-04-21 Outpatient R NISA [facility] [id number] Univers 15:45:00 15:45:00 WONDICOURTNEY ity o f [facility] 2021-04-07 2021-04-07 Outpatient R ELISHA, [facility] [id number] Univers 09:20:00 09:20:00 RD jay [facility] 2021-04-02 2021-04-02 Outpatient R MOMO [facility] [id number] Univers 08:45:00 08:45:00 ISAC [facility] 2021-04-01 2021-04-01 Emergency [facility] ERT [id number] Univers 13:00:00 15:36:00 DESTINY [facility] 2021-04-01 2021-04-01 Emergency X [facility] ERT [id number] Univers 13:00:00 15:36:00 DESTINY [facility] 2021-04-01 2021-04-01 Emergency X [facility] ERT [id number] Univers 13:00:00 15:36:00 DESTINY [facility] 2021-04-01 2021-04-01 Outpatient R [facility] [id number] Univers 08:45:00 08:45:00 [facility] 2021-03-28 2021-03-28 Outpatient R BELLA [facility] [id number] Univers 09:40:00 09:40:00 CHELA ity o f [facility] 2021-03-27 2021-03-27 Outpatient R WIL [facility] [id number] Univers 09:30:00 09:30:00 MATEO jay [facility] 2021-03-26 2021-03-26 Outpatient R MOMO [facility] [id number] Univers 15:15:00 15:15:00 ISAC [facility] 2021-03-25 2021-03-25 Outpatient Brock COON [facility] [id number] Univers 08:30:00 08:30:00 CORRY itjay [facility] 2021-03-23 2021-03-23 Outpatient R STEFFANIE [facility] [id number] Univers 08:00:00 08:00:00 EMERY ity o f [facility] 2021-03-20 2021-03-20 Emergency X STEPHEN, K [facility] ERT [id number] Univers 19:09:00 19:47:00 ity [facility] 2021-03-20 2021-03-20 Emergency X STEPHEN, K [facility] ERT [id number] Univers 19:09:00 19:47:00 ity [facility] 2021-03-20 2021-03-20 Emergency X STEPHEN, K [facility] ERT [id number] Univers 19:09:00 19:47:00 [facility] 2021-03-18 2021-03-18 Outpatient Brock [facility] NUT [id number] Univers 00:00:00 00:00:00 CAPRICE jay [facility] 2021-03-12 2021-03-12 [facility]patient [facility] [id number] Univers 08:30:00 08:30:[address] [facility] 2021-03-11 2021-03-11 Outpatient [facility] [id number] Univers 16:15:00 16:15:00 [facility] 2021-03-10 2021-03-10 [facility] 1.2.840.114 [id number] Univers 00:00:00 00:00:00 [facility] 350.1.13.10 it y of [place] 4.2.7.2.[address] [facility] [id number] [place] 8415[address] OFFICE BUILDING 2021-02-25 2021-02-25 Outpatient Brock [facility] [id number] Univers 14:30:00 14:30:00 [facility] 2021-02-25 2021-02-25 Eduarda Pollard [facility] 1.2.590.565 [id number] 00:00:00 00:00:00 Sendil Kaley Gregorio 350.1.13.10 [place] 4.2.7.2.686 [facility] [id number] [facility] 059 [facility] 2021-02-24 2021-02-24 Outpatient R NISA [facility] [id number] Univers 11:00:00 11:00:00 WONDIFUL ity o f [facility] 2021-02-19 2021-02-19 Outpatient R FLORENCE [facility] [id number] Univers 10:03:49 23:59:00 CAPRICE itjay [facility] 2021-02-19 2021-02-19 Outpatient R FLORENCE [facility] [id number] Univers 00:00:00 00:00:00 [facility] 2021-02-17 2021-02-17 Outpatient R [facility] [id number] Univers 17:40:00 17:40:[facility] 2021-02-17 Outpatient R JONA [facility] [id number] Univers 17:40:00 17:17:33 [facility]17 2021-02-17 Outpatient R JONA [facility] [id number] Univers 17:40:00 17:17:33 [facility]17 2021-02-17 Outpatient R JONA [facility] [id number] Univers 17:40:00 17:17:33 [facility]10 2021-02-10 Outpatient R ATUL [facility] [id number] Univers 09:00:00 09:00:00 [facility]-02-09 2021-02-09 Outpatient R MOMO [facility] [id number] Univers 14:45:00 14:45:[address] [facility] 2021-02-09 2021-02-09 Outpatient R MOMO [facility] [id number] Univers 14:45:00 14:45:00 [facility] 2021-02-04 2021-02-04 Outpatient R HERMILA VALERAMIBernadette [facility] [id number] Univers 10:30:00 10:30:00 RITAMARCELINA GALLARDO [facility] 2021-02-03 2021-02-03 Outpatient R NISA, [facility] [id number] Univers 16:30:00 16:30:00 WONDIFUL ity o f [facility] 2021-01-27 2021-01-27 Outpatient R MARISELA NAV [facility] [id number] Univers 15:00:00 15:00:[facility] 2021-01-21 Outpatient R ATUL, [facility] [id number] Univers 11:00:00 11:00:00 SENDIL [facility] 2021-01-20 2021-01-20 Outpatient R PRINCESS SANJAY [facility] [id number] Univers 11:00:00 11:00:00 [facility] 2021-01-14 2021-01-14 Outpatient R RIK, [facility] [id number] Univers 10:45:00 10:45:00 TRAY [facility] 2021-01-08 2021-01-08 Outpatient R MOMO [facility] [id number] Univers 08:45:00 08:45:00 ISAC [facility] 2021-01-06 2021-01-06 Outpatient R AIMEE, [facility] [id number] Univers 11:00:00 11:00:00 SHORTY ity o f [facility] 2021-01-01 2021-01-01 Outpatient R NISA [facility] [id number] Univers 15:00:00 15:00:00 WONDIFUL ity o f [facility] 2021-01-01 2021-01-01 Outpatient R NISA [facility] [id number] Univers 15:00:00 15:00:00 WONDIFUL ity o f [facility] 2021-01-01 2021-01-01 Outpatient R NISA, [facility] [id number] Univers 15:00:00 15:00:00 WONDIFUL ity o f [facility] 2021-01-01 2021-01-01 Outpatient R NISA, [facility] [id number] Univers 15:00:00 15:00:00 WONDIFUL ity o f [facility] 2020-12-13 2020-12-13 Outpatient [facility] [id number] Univers 08:25:00 08:25:00 ity [facility] 2020-12-13 2020-12-13 Outpatient Brock LINDO, [facility] [id number] Univers 08:25:00 08:25:00 TAMMY ity [facility] 2020-12-13 2020-12-13 Outpatient Brock LINDO, [facility] [id number] Univers 08:25:00 08:25:00 TAMMY ity [facility] 2020-12-13 2020-12-13 Outpatient Brock LINDO, [facility] [id number] Univers 08:25:00 08:25:00 [facility] 2020-12-02 Outpatient R JAKE, [facility] [id number] Univers 09:00:00 09:00:00 LIANA ity [facility] 2020-12-02 2020-12-02 Outpatient R JAKE, [facility] [id number] Univers 09:00:00 09:00:00 LIANA ity [facility] 2020-12-02 2020-12-02 Outpatient R JAKE, [facility] [id number] Univers 09:00:00 09:00:00 LIANA ity [facility] 2020-12-02 2020-12-02 Outpatient R JAKE, [facility] [id number] Univers 09:00:00 09:00:00 LIANA ity [facility] 2020-11-22 2020-11-22 Outpatient Brock LINDO [facility] [id number] Univers 09:40:00 09:40:00 TAMMY ity [facility] 2020-11-22 2020-11-22 Outpatient Brock LINDO [facility] [id number] Univers 09:40:00 09:40:00 TAMMY ity [facility] 2020-11-22 2020-11-22 Outpatient R BELGICA [facility] [id number] Univers 09:40:00 09:40:00 TAMMY [facility] 2020-11-21 2020-11-21 Outpatient R DONOVAN [facility] [id number] Univers 14:00:00 14:00:00 LAKISHA jay [facility] 2020-11-20 2020-11-20 Outpatient R LAILA ORELLANA [facility] [id number] Univers 15:00:00 15:00:00 LAILA ORELLANA i [facility] 2020-11-09 2020-11-09 Outpatient R ELISHA [facility] [id number] Univers 08:20:00 08:20:00 RD [facility] 2020-11-09 2020-11-09 Outpatient R ELISHA [facility] [id number] Univers 08:20:00 08:20:[address] [facility] 2020-11-09 2020-11-09 Outpatient R ELISHA [facility] [id number] Univers 08:20:00 08:20:00 RD [facility] 2020-11-07 2020-11-07 Outpatient R VIK OLIVEIRA [facility] [id number] Univers 11:30:00 11:30:00 [facility] 2020-11-06 2020-11-06 Outpatient R NISA [facility] [id number] Univers 08:15:00 08:15:00 WONDICOURTNEY ity o [facility] 2020-10-16 2020-10-16 Outpatient R ELISHA [facility] [id number] Univers 18:00:00 18:00:00 RD [facility] 2020-10-02 2020-10-02 Outpatient R MOMO [facility] [id number] Univers 10:15:00 10:15:00 ISAC [facility] 2020-09-22 2020-09-22 Outpatient R STEFFANIE [facility] [id number] Univers 08:00:00 08:00:00 EMERY ity o f [facility] 2020-09-15 2020-09-15 Outpatient R NISA [facility] [id number] Univers 00:00:00 00:00:00 WONDIFUL ity o f [facility] 2020-09-15 2020-09-15 Outpatient R NISA, [facility] [id number] Univers 00:00:00 00:00:00 WONDIFUL ity o f [facility] 2020-09-14 2020-09-14 Outpatient R JONA, [facility] [id number] Univers 08:40:00 08:40:00 ROGE jay [facility] 2020 2020 Outpatient R NISA, [facility] [id number] Univers 00:00:00 00:00:00 WONDIFUL ity o f [facility] 2020-09-10 2020-09-10 Outpatient R DUCKWORTH, [facility] [id number] Univers 08:00:00 08:00:00 SHANTI mark [facility] 2020-09-08 2020-09-08 Outpatient R SELF, [facility] [id number] Univers 08:00:00 08:00:00 EMERY ity o f [facility] 2020-09-04 2020-09-04 Outpatient R NISA, [facility] [id number] Univers 16:00:00 16:00:00 WONDIFUL ity o f [facility] 2020-08-25 2020-08-25 Outpatient R NISA, [facility] [id number] Univers 11:00:00 11:13:03 WONDIFUL ity o f [facility] 2020-08-25 2020-08-25 Outpatient R NISA [facility] [id number] Univers 10:30:00 10:30:00 WONDIFUL ity o f [facility] 2020-08-06 2020-08-06 Outpatient R PATRICIO, [facility] [id number] Univers 10:20:00 10:20:00 BALJIT ity [facility] 2020-08-06 2020-08-06 Outpatient R PATRICIO, [facility] [id number] Univers 09:00:00 09:00:00 BALJIT mark [facility] 2020-08-01 2020-08-01 Outpatient R WIL, [facility] [id number] Univers 10:00:00 10:00:00 [facility]-07-18 2020-07-18 Outpatient R LAILA ORELLANA [facility] [id number] Univers 11:00:00 11:00:00 LAILA ORELLANA i ty [facility] 2020-07-17 2020-07-17 Outpatient R VIK OLIVEIRA [facility] [id number] Univers 12:00:00 12:00:00 ity [facility] 2020-07-14 2020-07-14 Outpatient R NISA, [facility] [id number] Univers 10:45:00 10:45:00 WONDIFUL ity o f [facility] 2020-07-07 2020-07-07 Outpatient R MAKSIM [facility] [id number] Univers 08:30:00 08:30:00 AUBRIE [facility] 2020-06-27 2020-06-27 Outpatient R NISA [facility] [id number] Univers 15:15:00 15:15:00 WONDIFUL ity o f [facility] 2020-06-12 2020-06-12 Outpatient R MAKSIM [facility] [id number] Univers 15:45:00 15:45:00 AUBRIE [facility] 2020-06-05 2020-06-05 Outpatient R MOMO [facility] [id number] Univers 10:30:00 10:30:00 ISAC [facility] 2020-06-03 2020-06-03 Outpatient R ATUL [facility] [id number] Univers 09:00:00 09:00:00 SENDLARISSA [facility] 2020-05-16 2020-05-16 Outpatient R OLIVEIRAVIK [facility] [id number] Univers 16:30:00 16:30:00 [facility] 2020-05-09 2020-05-09 Outpatient R [facility] [id number] Univers 10:20:00 10:20:00 [facility] 2020-04-21 2020-04-21 Outpatient R ARGENIS [facility] [id number] Univers 11:40:00 11:40:00 DORITA [facility] 2020-04-18 2020-04-18 Outpatient R ATUL [facility] [id number] Univers 09:30:00 09:30:00 [facility] 2020-04-15 2020-04-15 Outpatient R [facility] [id number] Univers 10:20:00 10:20:00 ity [facility] 2020-04-04 2020-04-04 Outpatient R [facility] [id number] Univers 10:00:00 10:00:[facility] 2020-04-01 2020-04-01 Outpatient R [facility] [id number] Univers 08:00:00 08:00:00 ity [facility] 2020-03-20 2020-03-20 Outpatient R ROMARIO, [facility] [id number] Univers 10:00:00 10:00:00 FABRICIO [facility] 2020-03-10 2020-03-10 Outpatient R MIKAYLA, [facility] [id number] Univers 08:45:00 08:45:00 CL [facility] 2020-03-03 2020-03-03 Outpatient R MAKSIM, [facility] [id number] Univers 08:00:00 08:00:00 AUBRIE [facility] 2020-01-22 2020-01-22 [facility] [id number] Univers 15:45:00 15:45:[address] [facility] 2020-01-22 2020-01-22 [facility] [id number] Univers 10:45:00 10:45:00 [facility] 2020-01-18 2020-01-18 Outpatient R SANJAY SÁNCHEZ [facility] [id number] Univers 11:30:00 11:30:00 ity [facility] 2020-01-11 2020-01-11 Outpatient R LAILA ORELLANA [facility] [id number] Univers 11:00:00 11:00:00 LAILA ORELLANA i ty [facility] 2020-01-10 2020-01-10 Outpatient R NISA [facility] [id number] Univers 10:00:00 10:00:00 WONDIFUL ity o f [facility] 2020-01-04 2020-01-04 Outpatient R VIK OLIVEIRA [facility] [id number] Univers 11:30:00 11:30:00 [facility] 2020-01-01 2020-01-01 Outpatient R [facility] [id number] Univers 08:00:00 08:00:00 [facility] 2019-12-21 2019-12-21 Outpatient R NISA, [facility] [id number] Univers 09:30:00 09:30:00 WONDIFUL ity o f [facility] 2019-12-06 2019-12-06 [facility] [id number] Univers 11:00:00 11:00:00 FABRICIO [facility] 2019-11-30 2019-11-30 [facility] [id number] Univers 10:30:00 10:30:00 [facility] 2019-11-29 2019-11-29 Outpatient Brock [facility] [id number] Univers 08:15:00 08:15:00 [facility] 2019-11-23 2019-11-23 Outpatient R [facility] [id number] Univers 08:00:00 08:00:00 [facility] Results Test Description Test Time Test Comments Results Result Comments Source POCT HEMOGLOBIN A1C TEST 2022-08-24 14:54:00 Test Item Value Reference Range Interpretation Comme nts POCT HBA1C (test code = 4548-4) 4.6 % 4-6 [facility] HEMOGLOBIN A1C [id number] 14:54:00 Test Item Value Reference Range Interpretation Comments POCT HBA1C (test code = 4548-4) 4.6 % 4-6 [facility] GLUCOSE (AUTOMATED)2022-03-02 13:11:54 Test Item Value Reference Range Interpretation Comments POCT GLU (test code = 2946382626) 137 mg/dL 70-110 H Lab Interpretation (test code = Abnormal 80004-8) [facility] GLUCOSE (AUTOMATED)2022-03-02 13:11:54 Test Item Value Reference Range Interpretation Comments POCT GLU (test code = 5717793577) 137 mg/dL 70-110 H Lab Interpretation (test code = Abnormal 94574-2) [facility] [id number] 12:59:00 Test Item Value Reference Range Interpretation Comments POCT Glu (age>30days) (test code = 137 mg/dL 70-110 A 3342) Lab Interpretation (test code = Abnormal 84721-8) [facility] [id number] 12:59:00 Test Item Value Reference Range Interpretation Comments POCT Glu (age>30days) (test code = 137 mg/dL 70-110 A 3342) Lab Interpretation (test code = Abnormal 13415-3) [facility] [id number] 12:48:00 Test Item Value Reference Range Interpretation Comments POCT PREG (test code = 1605) Negative On board controls acceptable with Yes C Line (test code = 3574) POCT PREG LOT # (test code = 3575) [id number] POCT PREG TEST DATE (test 2023-06-25 code = 3576) [facility] [id number] 12:48:00 Test Item Value Reference Range Interpretation Comments POCT PREG (test code = 1605) Negative On board controls acceptable with Yes C Line (test code = 3574) POCT PREG LOT # (test code = 3575) [id number] POCT PREG TEST DATE (test 2023-06-25 code = 3576) [facility]
[2022-08-24] MEDS ORDERED: FAMOTIDINE 20 MG/2 ML VIAL IV ONE (23:55)
[2022-08-25 00:09] LABS: Absolute Lymphocytes (CBC) 1.2 K/uL (0.7-4.9); Hematocrit 37.2 % (36.0-45.0); Lymphocytes % 21.9 % (15.3-44.8); MCV 89.4 fL (80-100); MPV 9.5 fL (7.6-11.3); RBC Red Blood Cell Count 4.15 M/uL (3.86-4.86)
[2022-08-25 00:18] LABS: Urine Blood Trace-intact (Negative); Urine Glucose Negative (Negative); Urine Protein Negative (Negative); Urine Specific Gravity 1.015 (1.005-1.030)
[2022-08-25 00:21] LABS: Albumin 4.7 g/dL (3.4-5.0); Bilirubin Direct 0.2 mg/dL (0-0.2); Bilirubin Total 0.8 mg/dL (0.2-1.0); Magnesium 2.3 mg/dL (1.8-2.4); Potassium 3.4 mmol/L (3.5-5.1); Protein, Total 7.7 g/dL (6.4-8.2); Troponin High Sensitivity 9.7 pg/mL (<58.9)
[2022-08-25 00:50] LABS: Urine Specific Gravity/Preg 1.015 (1.005-1.030)
[2022-08-25 00:54] LABS: Urine Bacteria <20 /HPF (<20)
[2022-08-25] MEDS ORDERED: levoFLOXacin 750 MG TAB ONE (00:58)
[2022-08-25] MEDS ORDERED: CEFTRIAXONE 1000 MG/VIAL ONE (00:59)
[2022-08-25] MEDS ORDERED: POTASSIUM 25 MEQ EFFERV TAB ONE (00:59)
--- NOTE | 2022-08-25 02:09 | ER ---
Nurse's Notes [facility] Name: Linda Rahman Age: 46 yrs Sex: Female : 1975 Arrival Date: 08/24/2022 Time: 23:20 Bed 14 Private MD: Diagnosis: Hypokalemia;Abdominal pain, Generalized;UTI/ Urinary tract infection, site not specified;Obesity, unspecified Presentation: 08/24 23:20 Chief complaint: EMS states: Patient c/o abdominal since a week that is getting worse. ke1 Coronavirus screen: Vaccine status: Patient reports receiving the 2nd dose of the covid vaccine. Ebola Screen: No symptoms or risks identified at this time. Initial Sepsis Screen: Does the patient meet any 2 criteria? No. Patient's initial sepsis screen is negative. Does the patient have a suspected source of infection? No. Patient's initial sepsis screen is negative. Risk Assessment: Do you want to hurt yourself or someone else? Patient reports no desire to harm self or others. Onset of symptoms was August 17, 2022 at 05:00. 23:20 Method Of Arrival: EMS: [facility] ke1 23:20 Acuity: HOLLEY 3 ke1 Triage Assessment: 23:23 General: Appears in no apparent distress. Behavior is appropriate for age. Pain: ke1 Complains of pain in RUQ and LUQ. Historical: - Allergies: 23:22 Amoxicillin; ke1 23:22 Benadryl; ke1 23:22 Codeine; ke1 23:22 Demerol; ke1 23:22 Geodon; ke1 23:22 Meclizine; ke1 23:22 Tessalon Perles; ke1 - PMHx: 23:22 Anemia; Anxiety; Asthma; diabetes mellitus; Hypertensive disorder; Hypothyroidism; ke1 Migraine; - PSHx: 23:22 Cholecystectomy; tubal ligation; ke1 - Immunization history:: Client reports receiving the 2nd dose of the Covid vaccine. - Social history:: Smoking status: Patient denies any tobacco usage or history of. - Family history:: not pertinent. - Hospitalizations: : No recent hospitalization is reported. Screenin:23 Abuse screen: Denies threats or abuse. Nutritional screening: No deficits noted. ke1 Tuberculosis screening: No symptoms or risk factors identified. Fall Risk None identified. Assessment: 08/25 00:30 Reassessment: Patient states feeling better. Patient states symptoms have improved. ke1 02:02 Reassessment: No changes from previously documented assessment. ke1 Vital Signs: 08/24 23:20 BP 132 / 86; Pulse 87; Resp 17; Temp 97.9(O); Pulse Ox 98% on R/A; Weight 102.97 kg; ke1 Height 5 ft. 2 in. (157.48 cm); Pain 9/10; 08/25 00:26 Pain 2/10; ke1 02:02 BP 124 / 75; Pulse 98; Resp 19; Temp 97.8; Pulse Ox 94% on R/A; Pain 1/10; ke1 08/24 23:20 Body Mass Index 41.52 (102.97 kg, 157.48 cm) ke1 ED Course: 08/24 23:20 Patient arrived in ED. ke1 23:20 Homer Lindsey, RN is Primary Nurse. ke1 23:22 Triage completed. ke1 23:23 Arm band placed on left wrist. ke1 23:24 Bed in low position. Call light in reach. ke1 23:25 Young Hernandez MD is Attending Physician. yuridia 23:44 Inserted saline lock: 20 gauge in right antecubital area, using aseptic technique. ke1 23:45 Basic Metabolic Panel Sent. ke1 23:45 CBC with Diff Sent. ke1 23:45 LFT's Sent. ke1 23:52 Magnesium Sent. ke1 23:52 NT PRO-BNP Sent. ke1 23:52 PT-INR Sent. ke1 23:52 Troponin HS Sent. ke1 08/25 00:20 XRAY Chest (1 view) In Process Unspecified. EDMS 01:09 CT Abd/Pelvis - IV Contrast Only In Process Unspecified. EDMS 02:20 No provider procedures requiring assistance completed. IV discontinued. ke1 Administered Medications: 00:11 Drug: Pepcid (famotidine) 20 mg Route: IVP; Site: right antecubital; ke1 00:32 Follow up: Response: Marked relief of symptoms ke1 00:11 Drug: fentaNYL (PF) 25 mcg Route: IVP; Site: right antecubital; ke1 00:26 Follow up: Pain 2/10 Adult; Response: Pain is decreased ke1 00:11 Drug: Zofran (Ondansetron) 4 mg Route: IVP; Site: right antecubital; ke1 00:31 Follow up: Response: Nausea is decreased ke1 01:03 Drug: Rocephin (cefTRIAXone) 1 grams Route: IV; Rate: per protocol; Site: right ke1 antecubital; 01:03 Drug: Potassium Effervescent Tablet 25 mEq Route: PO; ke1 02:04 Follow up: Response: No adverse reaction ke1 01:03 Drug: LevOfloxacin 750 mg Route: PO; ke1 02:04 Follow up: Response: No adverse reaction ke1 Medication: 02:20 VIS not applicable for this client. ke1 Outcome: 02:09 Discharge ordered by . yuridia 02:20 Discharged to home ambulatory. ke1 02:20 Condition: good 02:20 Discharge instructions given to patient. 02:20 Patient left the ED. ke1 Addendum: 08/27/2022 07:13 Addendum: Culture Results: Positive urine culture. No further action required. Bacteria e b sensitive to prescribed antibiotic. Signatures: Dispatcher [employer] EDMS Young Hernandez MD MD cha Botello, Elizabeth eb Ebrottie, Kouassi RN RN ke1 Corrections: (The following items were deleted from the chart) 08/25 02:03 02:02 BP 124 / 75; Pulse 98bpm; Resp 19bpm; Pulse Ox 94% RA; Temp 97.8F; ke1 ke1
--- NOTE | 2022-08-25 02:09 | EDPHYS ---
Physician Documentation [facility] Name: Linda Rahman Age: 46 yrs Sex: Female : 1975 Arrival Date: 08/24/2022 Time: 23:20 Bed 14 Private MD: ALEXA Physician Young Hernandez HPI: 08/25 01:47 This 46 yrs old Female presents to ER via EMS with complaints of upper babd yuridia pain, dysuria. 01:47 The patient presents with abdominal pain in the upper abdomen, in the lower abdomen, yuridia abdominal distention in the upper abdomen, in the lower abdomen. Onset: The symptoms/episode began/occurred 2 day(s) ago. The symptoms do not radiate. Associated signs and symptoms: Pertinent positives: dysuria. The symptoms are described as achy. Modifying factors: The symptoms are alleviated by nothing, the symptoms are aggravated by nothing. Severity of pain: At its worst the pain was mild in the emergency department the pain is unchanged. The patient has not experienced similar symptoms in the past. Historical: - Allergies: 08/24 23:22 Amoxicillin; ke1 23:22 Benadryl; ke1 23:22 Codeine; ke1 23:22 Demerol; ke1 23:22 Geodon; ke1 23:22 Meclizine; ke1 23:22 Tessalon Perles; ke1 - PMHx: 23:22 Anemia; Anxiety; Asthma; diabetes mellitus; Hypertensive disorder; Hypothyroidism; ke1 Migraine; - PSHx: 23:22 Cholecystectomy; tubal ligation; ke1 - Immunization history:: Client reports receiving the 2nd dose of the Covid vaccine. - Social history:: Smoking status: Patient denies any tobacco usage or history of. - Family history:: not pertinent. - Hospitalizations: : No recent hospitalization is reported. ROS: 08/25 01:47 Constitutional: Negative for fever, chills, and weight loss, Eyes: Negative for injury, yuridia pain, redness, and discharge, ENT: Negative for injury, pain, and discharge, Neck: Negative for injury, pain, and swelling, Cardiovascular: Negative for chest pain, palpitations, and edema, Respiratory: Negative for shortness of breath, cough, wheezing, and pleuritic chest pain, Back: Negative for injury and pain, : Negative for injury, bleeding, discharge, and swelling, MS/Extremity: Negative for injury and deformity, Skin: Negative for injury, rash, and discoloration, Neuro: Negative for headache, weakness, numbness, tingling, and seizure, Psych: Negative for depression, anxiety, suicide ideation, homicidal ideation, and hallucinations, Allergy/Immunology: Negative for hives, rash, and allergies, Endocrine: Negative for neck swelling, polydipsia, polyuria, polyphagia, and marked weight changes, Hematologic/Lymphatic: Negative for swollen nodes, abnormal bleeding, and unusual bruising. Abdomen/GI: Positive for abdominal pain, of the epigastric area and suprapubic area. Exam: 01:47 Constitutional: This is a well developed, well nourished patient who is awake, alert, yuridia and in no acute distress. Head/Face: Normocephalic, atraumatic. Eyes: Pupils equal round and reactive to light, extra-ocular motions intact. Lids and lashes normal. Conjunctiva and sclera are non-icteric and not injected. Cornea within normal limits. Periorbital areas with no swelling, redness, or edema. ENT: Nares patent. No nasal discharge, no septal abnormalities noted. Tympanic membranes are normal and external auditory canals are clear. Oropharynx with no redness, swelling, or masses, exudates, or evidence of obstruction, uvula midline. Mucous membranes moist. Neck: Trachea midline, no thyromegaly or masses palpated, and no cervical lymphadenopathy. Supple, full range of motion without nuchal rigidity, or vertebral point tenderness. No Meningismus. Chest/axilla: Normal chest wall appearance and motion. Nontender with no deformity. No lesions are appreciated. Cardiovascular: Regular rate and rhythm with a normal S1 and S2. No gallops, murmurs, or rubs. Normal PMI, no JVD. No pulse deficits. Respiratory: Lungs have equal breath sounds bilaterally, clear to auscultation and percussion. No rales, rhonchi or wheezes noted. No increased work of breathing, no retractions or nasal flaring. Abdomen/GI: Soft, non-tender, with normal bowel sounds. No distension or tympany. No guarding or rebound. No evidence of tenderness throughout. Back: No spinal tenderness. No costovertebral tenderness. Full range of motion. Skin: Warm, dry with normal turgor. Normal color with no rashes, no lesions, and no evidence of cellulitis. MS/ Extremity: Pulses equal, no cyanosis. Neurovascular intact. Full, normal range of motion. Neuro: Awake and alert, GCS 15, oriented to person, place, time, and situation. Cranial nerves II-XII grossly intact. Motor strength 5/5 in all extremities. Sensory grossly intact. Cerebellar exam normal. Normal gait. Psych: Awake, alert, with orientation to person, place and time. Behavior, mood, and affect are within normal limits. 01:47 ECG was reviewed by the Attending Physician. Vital Signs: 08/24 23:20 BP 132 / 86; Pulse 87; Resp 17; Temp 97.9(O); Pulse Ox 98% on R/A; Weight 102.97 kg; ke1 Height 5 ft. 2 in. (157.48 cm); Pain 9/10; 08/25 00:26 Pain 2/10; ke1 02:02 BP 124 / 75; Pulse 98; Resp 19; Temp 97.8; Pulse Ox 94% on R/A; Pain 1/10; ke1 08/24 23:20 Body Mass Index 41.52 (102.97 kg, 157.48 cm) ke1 MDM: 08/24 23:[address] [facility] 08/25 01:47 Differential diagnosis: diverticulitis, gastritis, Irritable bowel syndrome, myocardia yuridia ischemia or infarction, non-specific abd pain, pancreatitis, Peptic Ulcer Disease, Perf. Duodenal Ulcer, Peritonitis, Pyelonephritis. Data reviewed: vital signs, nurses notes, radiologic studies, CT scan, plain films. Data interpreted: supervisor lathing: rate is 87 beats/min, rhythm is regular, Pulse oximetry: on room air. Test interpretation: by ED physician or midlevel provider: ECG, plain radiologic studies. Counseling: I had a detailed discussion with the patient and/or guardian regarding: the historical points, exam findings, and any diagnostic results supporting the discharge/admit diagnosis, lab results, radiology results, the need for outpatient follow up, for definitive care, a family practitioner. 08/24 23:24 Order name: Basic Metabolic Panel; Complete Time: 00:37 [facility] 08/24 23:24 Order name: CBC with Diff; Complete Time: 00:37 [facility] 08/24 23:24 Order name: LFT's; Complete Time: 00:37 [facility] 08/24 23:24 Order name: Magnesium; Complete Time: 00:37 [facility] 08/24 23:24 Order name: NT PRO-BNP; Complete Time: 00:37 [facility] 08/24 23:24 Order name: Troponin HS; Complete Time: 00:37 [facility] 08/24 23:24 Order name: XRAY Chest (1 view) [facility] 08/24 23:24 Order name: Lipase; Complete Time: 00:37 [facility] 08/24 23:24 Order name: Urine Culture [facility] 08/24 23:24 Order name: CT Abd/Pelvis - IV Contrast Only [facility] 08/25 00:18 Order name: Urine Dipstick-Ancillary; Complete Time: 00:37 EDMS 08/25 00:18 Order name: Urine --Ancillary (enter results); Complete Time: 00:54 mw2 08/25 00:44 Order name: Urine Microscopic Only; Complete Time: 01:36 [facility] 08/24 23:24 Order name: EKG; Complete Time: 23:25 [facility] 08/24 23:24 Order name: Cardiac monitoring; Complete Time: 23:52 [facility] 08/24 23:24 Order name: EKG - Nurse/Tech; Complete Time: 23:52 [facility] 08/24 23:24 Order name: IV Saline Lock; Complete Time: 23:45 [facility] 08/24 23:24 Order name: Labs collected and sent; Complete Time: 23:45 [facility] 08/24 23:24 Order name: O2 Per Protocol; Complete Time: 23:45 [facility] 08/24 23:24 Order name: O2 Sat Monitoring; Complete Time: 23:45 [facility] 08/24 23:24 Order name: Urine Dipstick-Ancillary (obtain specimen); Complete Time: 00:18 [facility] 08/24 23:24 Order name: Urine Test (obtain specimen); Complete Time: 00:18 [facility] EC:47 Rate is 85 beats/min. Rhythm is regular. QRS [place] is Normal. CA interval is normal. QRS yuridia interval is normal. QT interval is normal. No Q waves. T waves are Normal. No ST changes noted. Clinical impression: NSR w/ Non-specific ST/T Changes and No evidence of ischemia. Interpreted by me. Reviewed by me. Administered Medications: 00:11 Drug: Pepcid (famotidine) 20 mg Route: IVP; Site: right antecubital; ke1 00:32 Follow up: Response: Marked relief of symptoms ke1 00:11 Drug: fentaNYL (PF) 25 mcg Route: IVP; Site: right antecubital; ke1 00:26 Follow up: Pain 2/10 Adult; Response: Pain is decreased ke1 00:11 Drug: Zofran (Ondansetron) 4 mg Route: IVP; Site: right antecubital; ke1 00:31 Follow up: Response: Nausea is decreased ke1 01:03 Drug: Rocephin (cefTRIAXone) 1 grams Route: IV; Rate: per protocol; Site: right ke1 antecubital; 01:03 Drug: Potassium Effervescent Tablet 25 mEq Route: PO; ke1 02:04 Follow up: Response: No adverse reaction ke1 01:03 Drug: LevOfloxacin 750 mg Route: PO; ke1 02:04 Follow up: Response: No adverse reaction ke1 Disposition Summary: 08/25/22 02:09 Discharge Ordered Location: Home yuridia Problem: new yuridia Symptoms: have improved yuridia Condition: Fair yuridia Diagnosis - Hypokalemia yuridia - Abdominal pain, Generalized yuridia - UTI/ Urinary tract infection, site not specified yuridia - Obesity, unspecified yuridia Followup: yuridia - With: Private Physician - When: 2 - 3 days - Reason: Recheck today's complaints, Continuance of care, Re-evaluation by your physician Discharge Instructions: - Discharge Summary Sheet yuridia - Abdominal Pain, Adult yuridia - Potassium Content of Foods yuridia - Dysuria yuridia - Obesity, Adult yuridia - Urinary Tract Infection, Adult yuridia - Urinary Tract Infection, Adult, [id number] yuridia - Abdominal Pain, Adult, [id number] [facility] Forms: - Medication Reconciliation Form [facility] - Thank You Letter yuridia - Antibiotic Education [facility] - Prescription Opioid Use [facility] Prescriptions: - Pepcid 20 mg Oral Tablet - take 1 tablet by ORAL route every 12 hours for 10 days; 20 tablet; Refills: 0, [facility] Product Selection Permitted - levofloxacin 500 mg Oral Tablet - take 1 tablet by ORAL route once daily for 7 days; 7 tablet; Refills: 0, [facility] Product Selection Permitted Signatures: Dispatcher [employer] Young Contreras MD MD cha Ebrottie, Kouassi, RN RN ke1
[2022-08-25 02:27] VITALS: BP 124/75; TEMP 97.8; O2SAT 94
--- NOTE | 2022-08-25 14:48 | RAD REPORT ---
EXAM DESCRIPTION: RAD - Chest Single View - 08/25/2022 12:18 am CLINICAL HISTORY: 46 years Female, ABDOMINAL DISTENTION COMPARISON: Chest radiograph dated 02/22/2022 FINDINGS: No focal lung consolidation. No pleural effusion. No pneumothorax. Cardiomediastinal silhouette is within normal limits. No acute osseous abnormality. IMPRESSION: No acute cardiopulmonary disease. Electronically signed by: Efrain Ibrahim DO 08/25/2022 1:10 AM GROCERY PACKER Due to temporary technical issues with the PACS/Fluency reporting system, reports are being signed by the in house radiologists without review as a courtesy to insure prompt reporting. The interpreting radiologist is fully responsible for the content of the report.
--- NOTE | 2022-08-25 14:50 | RAD REPORT ---
EXAM DESCRIPTION: CT - Abdomen Pelvis W Contrast - 08/25/2022 6:44 am CLINICAL HISTORY: The patient is 46 years old and is Female; pain TECHNIQUE: Axial computed tomography images of the abdomen and pelvis with intravenous contrast. S agittal and coronal reformatted images were created and reviewed. This CT exam was performed using one or more of the following dose reduction techniques: automated exposure control, adjustment of t he mA and/or kV according to patient size, and/or use of iterative reconstruction technique. COMPARISON: CT the abdomen and pelvis August 16, 2022 FINDINGS: ARTIFACTS: The exam is suboptimal secondary to motion artifact. LUNG BASES: Unremarkable. No mass. No consolidation. ABDOMEN: LIVER: The liver is enlarged. GALLBLADDER AND BILE DUCTS: Surgical clips are present in the right upper quadrant, consistent wi th previous cholecystectomy. PANCREAS: No ductal dilation. No mass. SPLEEN: The spleen is enlarged. ADRENALS: Unremarkable. No mass. KIDNEYS AND URETERS: Unremarkable. The kidneys enhance symmetrically. No obstructing renal or ure teral calculus is seen. No hydronephrosis or hydroureter. No perinephric fluid or stranding. STOMACH AND BOWEL: The stomach is not well distended. The small bowel is relatively normal in cipriano iber. Stool is present throughout colon. There is no mucosal thickening or evidence of bowel obstruct ion. PELVIS: APPENDIX: No findings to suggest acute appendicitis. BLADDER: The bladder is well distended. REPRODUCTIVE: Unremarkable as visualized. ABDOMEN and PELVIS: INTRAPERITONEAL SPACE: Unremarkable. No free air. No significant fluid collection. BONES/JOINTS: No acute fracture. SOFT TISSUES: The soft tissues are normal. VASCULATURE: Unremarkable. No abdominal aortic aneurysm. LYMPH NODES: Unremarkable. No enlarged lymph nodes. IMPRESSION: 1. No acute findings on this contrasted CT of the abdomen and pelvis to explain the pa tient's symptoms. 2. Hepatosplenomegaly. Electronically signed by: Liyah Ann MD 08/25/2022 1:44 AM FIRE FIGHTER AIRPORT Due to temporary technical issues with the PACS/Fluency reporting system, reports are being signed by the in house radiologists without review as a courtesy to insure prompt reporting. The interpreting radiologist is fully responsible for the content of the report.
--- NOTE | 2022-08-25 16:24 | EKG ---
Test Date: 2022-08-24 Test Time: 23:43:49 Bore Mill Operator: POLO MEASUREMENT RESULTS: Intervals: Rate: 85 TN: 200 QRSD: 122 QT: 424 QTc: 504 [place]: P: 59 TN: 200 QRS: -47 T: 52 INTERPRETIVE STATEMENTS: Normal sinus rhythm Left anterior fascicular block Abnormal ECG Compared to ECG 06/12/2022 22:07:35 Left anterior fascicular block now present Supraventricular tachycardia no longer present Left-axis deviation no longer present Left bundle-branch block no longer present Electronically Signed On 08-25-22 16:22:55 PHP WEB DEVELOPER by Elijah Lock
== END 2022-08-25 02:20 | disposition home or self-care (01) ==
LOC: ER 23:11
DX: N39.0 Urinary tract infection, site not specified (principal); E87.6 Hypokalemia; E66.9 Obesity, unspecified; I10 Essential (primary) hypertension
CPT/HCPCS: 93005; 87088; 85025; 87086; 80048; 36415; 83735; 81025; 80076; 87077; 87186; 84484; 83690; 83880; 74177; 71045; 96375; 96374; 99284; Q9967; 81003; 81015

== ENCOUNTER 2022-09-08 20:51 | Emergency (ER) | payer OTHER ==
--- OUTSIDE RECORDS SUMMARY | 2022-09-08 20:54 | XMS REPORT | Continuity of Care Document ---
:1975 Author Organization [facility] t Address [address] [place] [address] Care Team Providers Name Role Phone Jessica_Barry Attending Clinician Unavailable Jessica_S Admitting Clinician Unavailable Payers Payer Name Policy Type Policy Number Effective Date Expiration Date [facility] 8 2021 (MEDICARE 00:00:00 REPLACEMENT HMO) Problems This patient has no known problems. Allergies, Adverse Reactions, Alerts This patient has no known allergies or adverse reactions. Medications This patient has no known medications. Procedures This patient has no known procedures. Encounters Start End Encounter Admission Attending Care Care Encounter Source Date/Time Date/Time Type Type Clinicians Facility Department ID 2021-07-10 2021-07-10 Outpatient Kautz_S [facility] [id number] [facility] 05:13:00 05:13:00 [facility] 2021-05-09 2021-05-09 Outpatient [facility] [id number] [facility] 11:00:00 11:00:00 [facility] 2021-05-07 2021-05-07 [facility] [id number] [facility] 12:00:00 12:00:00 [facility] Results This patient has no known results.
[2022-09-08] MEDS ORDERED: FAMOTIDINE 20 MG/2 ML VIAL IV ONE (21:29)
[2022-09-08] MEDS ORDERED: ONDANSETRON 4 MG/2 ML VIAL ONE (21:29)
[2022-09-08] MEDS ORDERED: NA CHLORIDE 0.9% 1,000 ML ONE (21:30)
[2022-09-08 21:34] LABS: RBC Red Blood Cell Count 4.47 M/uL (3.86-4.86)
[2022-09-08 21:39] LABS: Absolute Lymphocytes (CBC) 1.3 K/uL (0.7-4.9); Hematocrit 40.2 % (36.0-45.0); Lymphocytes % 26.8 % (15.3-44.8); MCV 90.1 fL (80-100); MPV 10.3 fL (7.6-11.3)
[2022-09-08 21:56] LABS: Albumin 4.2 g/dL (3.4-5.0); Bilirubin Total 0.6 mg/dL (0.2-1.0); Protein, Total 7.5 g/dL (6.4-8.2)
--- NOTE | 2022-09-08 22:34 | RAD REPORT ---
EXAM DESCRIPTION: CT - Abdomen Pelvis W Contrast - 09/08/2022 10:19 pm CLINICAL HISTORY: Abdominal pain COMPARISON: 2020 and 2021 TECHNIQUE: Computed axial tomography of the abdomen pelvis was obtained. 100 cc Isovue-300 was admin istered intravenously. Oral contrast was not requested which limits evaluation of bowel and appendix All CT scans are performed using dose optimization technique as appropriate and may include automated exposure control or mA/KV adjustment according to patient size. FINDINGS: Mild hepatomegaly. Spleen is moderately enlarged. Pancreas, adrenals kidneys are unremarkable. No evidence of diverticulitis. 3.3 centimeter structure abuts the left aspect of the uterine body. It is unchanged and may represent a subserosal fibroid or benign adnexal mass. There is no evidence of diverticulitis. IMPRESSION: Mild hepatomegaly Moderate splenomegaly
--- NOTE | 2022-09-08 23:35 | ER ---
Nurse's Notes [facility] Name: Linda Rahman Age: 46 yrs Sex: Female : 1975 Arrival Date: 09/08/2022 Time: 20:55 Bed 2 Private MD: Diagnosis: Abdominal pain, Generalized;Diarrhea, unspecified Presentation: 09/08 21:12 Chief complaint: EMS states: they were toned out for pt c/o abdominal pain and diarrhea bb since this morning. Coronavirus screen: At this time, the client does not indicate any symptoms associated with coronavirus-19. Ebola Screen: No symptoms or risks identified at this time. Initial Sepsis Screen: Does the patient meet any 2 criteria? No. Patient's initial sepsis screen is negative. Does the patient have a suspected source of infection? No. Patient's initial sepsis screen is negative. Risk Assessment: Do you want to hurt yourself or someone else? Patient reports no desire to harm self or others. Onset of symptoms was September 08, 2022. 21:12 Method Of Arrival: EMS: [facility] bb 21:12 Acuity: HOLLEY 3 bb Triage Assessment: 23:58 General: Appears comfortable, obese, unkempt, Behavior is calm, cooperative. Pain: kl Complains of pain in abdomen. 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 - Social history:: Smoking status: Patient denies any tobacco usage or history of. Screenin:22 [facility] ED Fall Risk Assessment (Adult) History of falling in the last 3 months, kl including since admission No falls in past 3 months (0 pts) Confusion or Disorientation No (0 pts) Intoxicated or Sedated No (0 pts) Impaired Gait No (0 pts) Mobility Assist Device Used No (0 pt) Altered Elimination No (0 pt) Score/Fall Risk Level 0 - 2 = Low Risk. 23:58 Abuse screen: Denies threats or abuse. Nutritional screening: No deficits noted. Tuberculosis screening: No symptoms or risk factors identified. Fall Risk No fall in past 12 months (0 pts). No secondary diagnosis (0 pts). No IV (0 pts). Ambulatory Aid- None/Bed Rest/Nurse Assist (0 pts). Gait- Normal/Bed Rest/Wheelchair (0 pts) Mental Status- Oriented to own ability (0 pts). Total Butt Fall Scale indicates No Risk (0-24 pts). Assessment: 21:22 Reassessment: Patient appears in no apparent distress at this time. Patient and/or kl family updated on plan of care and expected duration. Pain level reassessed. Patient is alert, oriented x 3, equal unlabored respirations, skin warm/dry/pink. 22:20 Reassessment: Patient and/or family updated on plan of care and expected duration. Pain ha1 level reassessed. Patient is alert, oriented x 3, equal unlabored respirations, skin warm/dry/pink. Patient denies pain at this time. 23:57 Reassessment: Patient appears in no apparent distress at this time. Patient and/or kl family updated on plan of care and expected duration. Pain level reassessed. Patient is alert, oriented x 3, equal unlabored respirations, skin warm/dry/pink. Patient denies pain at this time. Patient states feeling better. Vital Signs: 21:12 BP 99 / 68; Pulse 87; Resp 16 S; Temp 98.5(O); Pulse Ox 95% on R/A; Weight 101.6 kg bb (R); Height 5 ft. 2 in. (157.48 cm) (R); Pain 8/10; 21:22 BP 110 / 80; Pulse 84; Resp 18; Pulse Ox 95% on R/A; kl 22:20 BP 109 / 47; Pulse 86; Resp 18 S; Pulse Ox 97% on R/A; ha1 23:56 BP 100 / 68; Pulse 80; Resp 16; Pulse Ox 98% on R/A; kl 21:12 Body Mass Index 40.97 (101.60 kg, 157.48 cm) ED Course: 20:55 Patient arrived in ED. [id number] 20:59 Mateo Odell MD is Attending Physician. kdr 21:13 Triage completed. bb 21:13 Arm band placed on Patient placed in an exam room, on a stretcher, on pulse oximetry. elayne Family accompanied patient. 21:15 Inserted saline lock: 22 gauge in right forearm, using aseptic technique. ,using kl aseptic technique. Diffusic Blood collected. 21:21 CBC with Diff Sent. kl 21:21 CMP Sent. kl 21:21 Lipase Sent. kl 22:19 Abdomen In Process Unspecified. EDMS 23:57 No provider procedures requiring assistance completed. IV discontinued, intact, kl bleeding controlled, No redness/swelling at site. Pressure dressing applied. 23:58 Patient has correct armband on for positive identification. kl Administered Medications: 21:00 Drug: Zofran (Ondansetron) 4 mg Route: IVP; Site: left forearm; kl 23:11 Follow up: Response: No adverse reaction; Marked relief of symptoms kl 21:33 Drug: NS 0.9% 1000 ml Route: IV; Rate: 1 bolus; Site: left forearm; kl 23:11 Follow up: IV Status: Completed infusion; IV Intake: 1000ml kl 21:33 Drug: Pepcid (famotidine) 20 mg Route: IVP; Site: left forearm; kl 23:11 Follow up: Response: No adverse reaction; Marked relief of symptoms kl 23:56 Drug: traMADol 50 mg Route: PO; kl 23:59 Follow up: Response: No adverse reaction kl 23:56 Drug: Bentyl (dicyclomine) 20 mg Route: PO; kl 23:59 Follow up: Response: No adverse reaction kl Medication: 21:22 VIS not applicable for this client. kl Intake: 23:11 IV: 1000ml; Total: 1000ml. kl Outcome: 23:34 Discharge ordered by . kdr 23:57 Discharged to home ambulatory, with family. kl 23:57 Condition: improved 23:57 Discharge instructions given to patient, Instructed on discharge instructions, follow up and referral plans. medication usage, Demonstrated understanding of instructions, follow-up care, medications, Prescriptions given X 2. 23:59 Patient left the ED. kl Signatures: Dispatcher [employer] EDNE Lucila Wren RN RN kl Rittger, Kevin, MD MD kdr Ballard, Brenda, RN RN bb Jeffries, Jennifer [email or web address] Pallavi Bai, RN RN ha1
--- NOTE | 2022-09-08 23:35 | EDPHYS ---
Physician Documentation [facility] Name: Linda Rahman Age: 46 yrs Sex: Female : 1975 Arrival Date: 09/08/2022 Time: 20:55 Bed 2 Private MD: ED Physician Mateo Odell HPI: 09/09 00:51 This 46 yrs old Female presents to ER via EMS with unknown complaint. kdr 00:51 This 46 yrs old Female presents to ER via EMS with complaints of Abdominal kdr pain and diarrhea. 00:51 EMS was called to the patient's home after she had been having abdominal pain and kdr diarrhea since early this morning. Abdominal pain was upper abdominal and very diffuse. She had some nausea occasional vomiting as well. Currently she has only abdominal pain but no diarrhea for a few hours. She was nauseated but not vomiting. Onset: The symptoms/episode began/occurred suddenly, this morning. Severity of symptoms: At their worst the symptoms were moderate in the emergency department the symptoms have improved mildly. The patient has experienced similar episodes in the past, a few times. The patient has not recently seen a physician. 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 - Social history:: Smoking status: Patient denies any tobacco usage or history of. ROS: 09/09 00:51 Constitutional: Negative for fever, chills, and weight loss, Eyes: Negative for injury, kdr pain, redness, and discharge, ENT: Negative for injury, pain, and discharge, Neck: Negative for injury, pain, and swelling, Cardiovascular: Negative for chest pain, palpitations, and edema, Respiratory: Negative for shortness of breath, cough, wheezing, and pleuritic chest pain, Back: Negative for injury and pain, : Negative for injury, bleeding, discharge, and swelling, MS/Extremity: Negative for injury and deformity, Skin: Negative for injury, rash, and discoloration, Neuro: Negative for headache, weakness, numbness, tingling, and seizure activity. Psych: Negative for depression, anxiety, suicide ideation, homicidal ideation, and hallucinations, Allergy/Immunology: Negative for hives, rash, and allergies, Endocrine: Negative for neck swelling, polydipsia, polyuria, polyphagia, and marked weight changes, Hematologic/Lymphatic: Negative for swollen nodes, abnormal bleeding, and unusual bruising. Abdomen/GI: Positive for abdominal pain, nausea and vomiting, nausea, vomiting, and diarrhea. Exam: 00:51 Constitutional: This is a well developed, well nourished patient who is awake, alert, kdr and in no acute distress. Head/Face: Normocephalic, atraumatic. Eyes: Pupils equal round and reactive to light, extra-ocular motions intact. Lids and lashes normal. Conjunctiva and sclera are non-icteric and not injected. Cornea within normal limits. Periorbital areas with no swelling, redness, or edema. Neck: Trachea midline, no thyromegaly or masses palpated, and no cervical lymphadenopathy. Supple, full range of motion without nuchal rigidity, or vertebral point tenderness. No Meningismus. Chest/axilla: Normal chest wall appearance and motion. Nontender with no deformity. No lesions are appreciated. Cardiovascular: Regular rate and rhythm with a normal S1 and S2. No gallops, murmurs, or rubs. Normal PMI, no JVD. No pulse deficits. Respiratory: Lungs have equal breath sounds bilaterally, clear to auscultation and percussion. No rales, rhonchi or wheezes noted. No increased work of breathing, no retractions or nasal flaring. Back: No spinal tenderness. No costovertebral tenderness. Full range of motion. Skin: Warm, dry with normal turgor. Normal color with no rashes, no lesions, and no evidence of cellulitis. MS/ Extremity: Pulses equal, no cyanosis. Neurovascular intact. Full, normal range of motion. Neuro: Awake and alert, GCS 15, oriented to person, place, time, and situation. Cranial nerves II-XII grossly intact. Motor strength 5/5 in all extremities. Sensory grossly intact. Cerebellar exam normal. Normal gait. Psych: Awake, alert, with orientation to person, place and time. Behavior, mood, and affect are within normal limits. 00:51 Abdomen/GI: Inspection: obese Bowel sounds: active, diminished, in all quadrants, Palpation: soft, mild abdominal tenderness, in the epigastric area, right upper quadrant and left upper quadrant. Vital Signs: 09/08 21:12 BP 99 / 68; Pulse 87; Resp 16 S; Temp 98.5(O); Pulse Ox 95% on R/A; Weight 101.6 kg bb (R); Height 5 ft. 2 in. (157.48 cm) (R); Pain 8/10; 21:22 BP 110 / 80; Pulse 84; Resp 18; Pulse Ox 95% on R/A; kl 22:20 BP 109 / 47; Pulse 86; Resp 18 S; Pulse Ox 97% on R/A; ha1 23:56 BP 100 / 68; Pulse 80; Resp 16; Pulse Ox 98% on R/A; kl 21:12 Body Mass Index 40.97 (101.60 kg, 157.48 cm) bb MDM: 23:34 Patient medically screened. kdr 09/09 00:51 Data reviewed: vital signs, nurses notes, lab test result(s), radiologic studies. kdr Counseling: I had a detailed discussion with the patient and/or guardian regarding: the historical points, exam findings, and any diagnostic results supporting the discharge/admit diagnosis, lab results, radiology results, the need for outpatient follow up. 09/08 21:15 Order name: CBC with Diff; Complete Time: 23:32 kdr 09/08 21:15 Order name: CMP; Complete Time: 23:32 kdr 09/08 21:15 Order name: Lipase; Complete Time: 23:32 kdr 09/08 21:15 Order name: CT Abd/Pelvis - IV Contrast Only kdr 09/08 21:20 Order name: Abdomen ; Complete Time: 23:32 EDMS 09/08 21:15 Order name: IV Saline Lock; Complete Time: 21:21 kdr 09/08 21:15 Order name: Labs collected and sent; Complete Time: 21:21 kdr Administered Medications: 09/08 21:00 Drug: Zofran (Ondansetron) 4 mg Route: IVP; Site: left forearm; kl 23:11 Follow up: Response: No adverse reaction; Marked relief of symptoms kl 21:33 Drug: NS 0.9% 1000 ml Route: IV; Rate: 1 bolus; Site: left forearm; kl 23:11 Follow up: IV Status: Completed infusion; IV Intake: 1000ml kl 21:33 Drug: Pepcid (famotidine) 20 mg Route: IVP; Site: left forearm; kl 23:11 Follow up: Response: No adverse reaction; Marked relief of symptoms kl 23:56 Drug: traMADol 50 mg Route: PO; kl 23:59 Follow up: Response: No adverse reaction kl 23:56 Drug: Bentyl (dicyclomine) 20 mg Route: PO; kl 23:59 Follow up: Response: No adverse reaction kl Disposition Summary: 09/08/22 23:34 Discharge Ordered Location: Home kdr Problem: new kdr Symptoms: have improved kdr Condition: Stable kdr Diagnosis - Abdominal pain, Generalized kdr - Diarrhea, unspecified kdr Followup: kdr - With: Private Physician - When: 2 - 3 days - Reason: If symptoms return, Further diagnostic work-up, Recheck today's complaints, Continuance of care, Re-evaluation by your physician Discharge Instructions: - Discharge Summary Sheet kdr - Abdominal Pain, Adult, [id number] kdr - Diarrhea, Adult, [id number] kdr Forms: - Medication Reconciliation Form kdr - Thank You Letter kdr Prescriptions: - dicyclomine 20 mg Oral tablet - take 1 tablet by ORAL route 3 times per day As needed; 12 tablet; Refills: 0, kdr Product Selection Permitted - Lomotil 2.5-0.025 mg Oral Tablet - take 2 tablets by ORAL route once daily As needed; 20 tablet; Refills: 0, kdr Product Selection Permitted Signatures: Dispatcher [employer] Lucila Benavidez RN RN kl Rittger, Kevin, MD MD kdr Ballard, Brenda, RN RN bb
[2022-09-08] MEDS ORDERED: TRAMADOL HCL 50 MG TAB ONE (23:56)
[2022-09-08] MEDS ORDERED: DICYCLOMINE HCL 10 MG CAP ONE (23:57)
[2022-09-09 00:29] VITALS: TEMP 98.5
[2022-09-09 00:33] VITALS: BP 100/68; O2SAT 98
== END 2022-09-08 23:59 | disposition home or self-care (01) ==
LOC: ER 20:51
DX: R10.84 Generalized abdominal pain (principal); R19.7 Diarrhea, unspecified; I10 Essential (primary) hypertension; Z88.1 Allergy status to other antibiotic agents; Z88.5 Allergy status to narcotic agent; Z88.8 Allergy status to other drugs, medicaments and biological substances
CPT/HCPCS: 85025; 36415; 83690; 80053; 74177; Q9967; J7030; J2405

== ENCOUNTER 2022-09-17 06:26 | Emergency (ER) | payer OTHER ==
--- OUTSIDE RECORDS SUMMARY | 2022-09-17 06:28 | XMS REPORT | Continuity of Care Document ---
:1975 Author Organization [facility] t Address [address] Hassan [address] [place] [address] Care Team Providers Name Role Phone Jessica_Barry Attending Clinician Unavailable Jessica_S Admitting Clinician Unavailable Payers Payer Name Policy Type Policy Number Effective Date Expiration Date [facility] 8 2021 (MEDICARE 00:00:00 REPLACEMENT HMO) Problems This patient has no known problems. Allergies, Adverse Reactions, Alerts This patient has no known allergies or adverse reactions. Medications This patient has no known medications. Procedures This patient has no known procedures. Encounters Start End Encounter Admission Attending Care Care Encounter Source Date/Time Date/Time Type Type Clinicians Facility Department ID 2021-07-10 2021-07-10 Outpatient [facility] [place] [id number] [facility] 05:13:00 05:13:00 [facility]5 [facility] 2021-05-09 2021-05-09 Outpatient [facility] [place] [facility] [id number] [facility] 11:00:00 11:00:00 0814 [facility] 2021-05-07 2021-05-07 [facility] [id number] [facility] 12:00:00 12:00:00 0812 [facility] Results This patient has no known results.
[2022-09-17 07:07] LABS: Urine Blood Negative (Negative); Urine Glucose Negative (Negative); Urine Protein Negative (Negative)
[2022-09-17 07:07] LABS: Absolute Lymphocytes (CBC) 0.9 K/uL (0.7-4.9); Hematocrit 32.9 % (36.0-45.0); Lymphocytes % 11.1 % (15.3-44.8); MCV 90.1 fL (80-100); MPV 9.6 fL (7.6-11.3); RBC Red Blood Cell Count 3.66 M/uL (3.86-4.86)
[2022-09-17] MEDS ORDERED: ONDANSETRON 4 MG/2 ML VIAL ONE (07:10)
[2022-09-17] MEDS ORDERED: DICYCLOMINE HCL 10 MG CAP ONE (07:10)
[2022-09-17] MEDS ORDERED: FAMOTIDINE 20 MG TAB ONE (07:10)
[2022-09-17 07:23] LABS: Urine Bacteria <20 /HPF (<20); Urine Crystals Unidentified Few /HPF (None Seen); Urine Mucus Slight /HPF (None Seen); Urine RBC 21-50 /HPF (None Seen); Urine WBC Clump Occasional /HPF (None Seen)
[2022-09-17 07:33] LABS: Albumin 3.8 g/dL (3.4-5.0); Bilirubin Total 0.8 mg/dL (0.2-1.0); Potassium 3.7 mmol/L (3.5-5.1); Troponin High Sensitivity 8.5 pg/mL (<58.9)
--- NOTE | 2022-09-17 08:20 | RAD REPORT ---
EXAM DESCRIPTION: RAD - Chest Single View - 09/17/2022 7:44 am CLINICAL HISTORY: CHEST PAIN COMPARISON: Chest Single View dated 08/25/2022; Chest Single View dated 06/12/2022; Chest Single View dated 04/17/2022; Chest Single View dated 02/22/2022 FINDINGS: Lines: None. Lungs: No evidence of edema or pneumonia. Pleural: No significant pleural effusions or pneumothorax. Cardiac: The heart size is within normal limits. Mediastinum: Within normal limits. Bones: No acute fractures. Other: None IMPRESSION: No acute cardiopulmonary disease.
--- NOTE | 2022-09-17 08:33 | ER ---
Nurse's Notes [facility] Name: Linda Rahman Age: 47 yrs Sex: Female : 1975 Arrival Date: 09/17/2022 Time: 06:27 Bed 8 Private MD: Diagnosis: Epigastric pain;UTI/ Urinary tract infection, site not specified;Anemia, unspecified;Renal insufficiency Presentation: 09/17 06:28 Chief complaint: EMS states: 47 year old female complains of abdominal pain. Ebola ha1 Screen: No symptoms or risks identified at this time. Initial Sepsis Screen: Does the patient meet any 2 criteria? No. Patient's initial sepsis screen is negative. Does the patient have a suspected source of infection? No. Patient's initial sepsis screen is negative. Risk Assessment: Do you want to hurt yourself or someone else? Patient reports no desire to harm self or others. Onset of symptoms was September 17, 2022. 06:28 Method Of Arrival: EMS: [facility] ha1 06:28 Acuity: [place] 3 ha1 Triage Assessment: 06:33 General: Appears uncomfortable, Behavior is calm, cooperative. Pain: Complains of pain ha1 in abdomen Pain does not radiate. Pain currently is 9 out of 10 on a pain scale. Quality of pain is described as burning, Pain began a week ago. EENT: No signs and/or symptoms were reported regarding the EENT system. Neuro: Level of Consciousness is awake, alert, obeys commands, Oriented to person, place, time, situation. Cardiovascular: Capillary refill < 3 seconds Patient's skin is warm and dry. Respiratory: Airway is patent Respiratory effort is even, unlabored, Respiratory pattern is regular, symmetrical. GI: Abdomen is non-distended, obese, Reports abdominal pain that has been ongoing for a week. : No signs and/or symptoms were reported regarding the genitourinary system. Derm: Skin is pink, warm \T\ dry. Musculoskeletal: Circulation, motion, and sensation intact. Range of motion: intact in all extremities. Historical: - Allergies: 06:33 Amoxicillin; ha1 06:33 Benadryl; ha1 06:33 Codeine; ha1 06:33 Demerol; ha1 06:33 Geodon; ha1 06:33 Meclizine; ha1 06:33 Tessalon Perles; ha1 - PMHx: 06:33 Anemia; Anxiety; Asthma; diabetes mellitus; Hypertensive disorder; Hypothyroidism; ha1 - PSHx: 06:33 Cholecystectomy; tubal ligation; ha1 Screenin:37 Abuse screen: Denies threats or abuse. Denies injuries from another. Nutritional ha1 screening: No deficits noted. Tuberculosis screening: No symptoms or risk factors identified. Assessment: 06:38 General: see triage assessment . ha1 07:24 Reassessment: Patient appears in no apparent distress at this time. No changes from ha1 previously documented assessment. Patient and/or family updated on plan of care and expected duration. Pain level reassessed. Patient is alert, oriented x 3, equal unlabored respirations, skin warm/dry/pink. 08:41 Reassessment: Patient appears in no apparent distress at this time. Patient and/or ha1 family updated on plan of care and expected duration. Pain level reassessed. Patient is alert, oriented x 3, equal unlabored respirations, skin warm/dry/pink. Patient states feeling better. Vital Signs: 06:28 BP 103 / 69; Pulse 96; Resp 20; Temp 98.9; Pulse Ox 100% on R/A; Weight 102.97 kg; ha1 Height 5 ft. 2 in. (157.48 cm); Pain 9/10; 06:38 BP 103 / 69; Pulse 69; Resp 20 S; Pulse Ox 100% on R/A; ha1 07:25 BP 129 / 79; Pulse 88; Resp 14; Pulse Ox 100% on R/A; ha1 08:42 BP 127 / 93; Pulse 84; Resp 17; Pulse Ox 99% ; ha1 06:28 Body Mass Index 41.52 (102.97 kg, 157.48 cm) ha1 ED Course: 06:27 Patient arrived in ED. ha1 06:29 Adriana Green MD is Attending Physician. sd2 06:32 Triage completed. ha1 06:33 Arm band placed on right wrist. ha1 06:37 Patient has correct armband on for positive identification. Fall risk band placed. ha1 Placed in gown. Bed in low position. Call light in reach. Side rails up X 1. 06:38 Pallavi Bai RN is Primary Nurse. ha1 06:54 Troponin High Sensitivity Sent. pf1 06:54 Lipase Sent. pf1 06:54 CMP Sent. pf1 06:54 CBC with Diff Sent. pf1 07:06 Attending Physician role handed off by Adriana Green MD ms3 07:06 Enrike Moore DO is Attending Physician. ms3 07:46 XRAY Chest (1 view) In Process Unspecified. EDMS 08:33 Lux Moreno DO is Referral Physician. ms3 08:42 No provider procedures requiring assistance completed. IV discontinued, intact, ha1 bleeding controlled, No redness/swelling at site. Pressure dressing applied. Administered Medications: 07:17 Drug: Pepcid (famotidine) 20 mg Route: PO; ha1 08:43 Follow up: Response: No adverse reaction; Marked relief of symptoms ha1 07:17 Drug: Bentyl (dicyclomine) 20 mg Route: PO; ha1 08:43 Follow up: Response: No adverse reaction; Marked relief of symptoms ha1 07:19 Drug: Zofran (Ondansetron) 4 mg Route: IVP; Site: right antecubital; ha1 08:43 Follow up: Response: No adverse reaction; Marked relief of symptoms ha1 Medication: 08:42 VIS not applicable for this client. ha1 Outcome: 08:33 Discharge ordered by . ms3 08:42 Discharged to home ambulatory, with family. ha1 08:42 Condition: good 08:42 Discharge instructions given to patient, Instructed on discharge instructions, follow up and referral plans. medication usage, Demonstrated understanding of instructions, follow-up care, medications, Prescriptions given X 2. 08:43 Patient left the ED. ha1 Signatures: Dispatcher [employer] EDMS Enrike Moore DO DO ms3 Adriana Green MD MD sd2 Pallavi Bai RN RN ha1 Laureen blanco RN RN pf1
--- NOTE | 2022-09-17 08:33 | EDPHYS ---
Physician Documentation [facility] Name: Linda Rahman Age: 47 yrs Sex: Female : 1975 Arrival Date: 09/17/2022 Time: 06:27 Bed 8 Private MD: ED Physician Enrike Moore HPI: 09/17 06:54 This 47 yrs old Female presents to ER via EMS with complaints of Abdominal sd2 Pain. 06:54 47 yo F well-known to our facility presents via EMS with CC of abdominal pain. Reports sd2 pain has been ongoing for many months but she has not been able to follow up with her PCP or a specialist due to not having a ride from her family members and everyone being busy. Reports ran out of the Bentyl previously given to her to help with pain. Pt most recently seen on 09/08 with negative workup and CT scan at that time. Denies any significant change in pain from previous visits. Endorses associated nausea. Denies fever or vomiting. Ongoing intermittent diarrhea that is unchanged. . Historical: - Allergies: 06:33 Amoxicillin; ha1 06:33 Benadryl; ha1 06:33 Codeine; ha1 06:33 Demerol; ha1 06:33 Geodon; ha1 06:33 Meclizine; ha1 06:33 Tessalon Perles; ha1 - PMHx: 06:33 Anemia; Anxiety; Asthma; diabetes mellitus; Hypertensive disorder; Hypothyroidism; ha1 - PSHx: 06:33 Cholecystectomy; tubal ligation; ha1 ROS: 06:54 Constitutional: Negative for fever, chills, and weight loss, Eyes: Negative for injury, sd2 pain, redness, and discharge, Cardiovascular: Negative for chest pain, palpitations, and edema, Respiratory: Negative for shortness of breath, cough, wheezing. 06:54 : Negative for dysuria, urinary frequency, hesitancy, urgency and hematuria. MS/Extremity: Negative for injury and deformity, Skin: Negative for injury, rash, and discoloration, Neuro: Negative for headache, numbness and tingling. 06:54 Abdomen/GI: Positive for abdominal pain, nausea, diarrhea, Negative for vomiting. Exam: 06:54 Constitutional: This is a well developed, well nourished patient who is awake, alert, sd2 and in no acute distress. Head/Face: Normocephalic, atraumatic. Eyes: EOMI, normal conjunctiva bilaterally Chest/axilla: Normal chest wall appearance and motion. Nontender with no deformity. Cardiovascular: Regular rate and rhythm with a normal S1 and S2. No gallops, murmurs, or rubs. 2+ distal pulses. Respiratory: Lungs have equal breath sounds bilaterally, clear to auscultation and percussion. No rales, rhonchi or wheezes noted. No increased work of breathing, no retractions or nasal flaring. Abdomen/GI: Soft, mild epigastric tenderness present, with normal bowel sounds. No guarding or rebound. Skin: Warm, dry with normal turgor. Normal color with no rashes, no lesions, and no evidence of cellulitis. MS/ Extremity: Pulses equal, no cyanosis. Neurovascular intact. Full, normal range of motion. Ambulatory without difficulty. Psych: Awake, alert, with orientation to person, place and time. Behavior, mood, and affect are within normal limits. 07:19 ECG was reviewed by the Attending Physician. ms3 Vital Signs: 06:28 BP 103 / 69; Pulse 96; Resp 20; Temp 98.9; Pulse Ox 100% on R/A; Weight 102.97 kg; ha1 Height 5 ft. 2 in. (157.48 cm); Pain 9/10; 06:38 BP 103 / 69; Pulse 69; Resp 20 S; Pulse Ox 100% on R/A; ha1 07:25 BP 129 / 79; Pulse 88; Resp 14; Pulse Ox 100% on R/A; ha1 08:42 BP 127 / 93; Pulse 84; Resp 17; Pulse Ox 99% ; ha1 06:28 Body Mass Index 41.52 (102.97 kg, 157.48 cm) ha1 MDM: 06:29 Patient medically screened. sd2 06:54 Differential Diagnosis Gastritis, cholecystitis, pancreatitis, SBO, diverticulitis, sd2 kidney stone, appendicitis, UTI, dehydration, electrolyte abnormality among others. Data reviewed: vital signs, nurses notes, old medical records. 07:08 Transition of care: Care assumed from Adriana Green MD. ms3 08:34 Counseling: I had a detailed discussion with the patient and/or guardian regarding: the ms3 historical points, exam findings, and any diagnostic results supporting the discharge/admit diagnosis, lab results, radiology results, the need for outpatient follow up, to return to the emergency department if symptoms worsen or persist or if there are any questions or concerns that arise at home. ED course: Discussed labs, chest x-ray, EKG with patient. Patient improved. Patient to follow-up with Dr. Moreno in 2 to 3 days. Patient understands agrees with plan. All questions were answered. Return precautions discussed include worsening symptoms, or any other concerns. On reevaluation patient is improved, alert and orient x4, in no apparent distress, nontoxic, ambulatory in emergency department, speaking full sentences. 09/17 06:43 Order name: CBC with Diff; Complete Time: 07:14 sd2 09/17 06:43 Order name: CMP; Complete Time: 07:53 sd2 09/17 06:43 Order name: Lipase; Complete Time: 07:53 sd2 09/17 06:43 Order name: Troponin High Sensitivity; Complete Time: 07:53 sd2 09/17 06:43 Order name: Urine Microscopic Only; Complete Time: 07:53 sd2 09/17 07:07 Order name: Urine Dipstick-Ancillary; Complete Time: 07:14 EDMS 09/17 06:43 Order name: EKG - Nurse/Tech; Complete Time: 07:24 sd2 09/17 07:15 Order name: XRAY Chest (1 view); Complete Time: 08:30 ms3 09/17 07:27 Order name: Urine Culture EDMS EC:19 Rate is 86 beats/min. Rhythm is regular. QRS [place] is Normal. DC interval is normal. ms3 Clinical impression: NSR w/ Non-specific ST/T Changes. Interpreted by me. Reviewed by me. Administered Medications: 07:17 Drug: Pepcid (famotidine) 20 mg Route: PO; ha1 08:43 Follow up: Response: No adverse reaction; Marked relief of symptoms ha1 07:17 Drug: Bentyl (dicyclomine) 20 mg Route: PO; ha1 08:43 Follow up: Response: No adverse reaction; Marked relief of symptoms ha1 07:19 Drug: Zofran (Ondansetron) 4 mg Route: IVP; Site: right antecubital; ha1 08:43 Follow up: Response: No adverse reaction; Marked relief of symptoms ha1 Disposition Summary: 09/17/22 08:33 Discharge Ordered Location: Home ms3 Condition: Stable ms3 Diagnosis - Epigastric pain ms3 - UTI/ Urinary tract infection, site not specified ms3 - Anemia, unspecified ms3 - Renal insufficiency ms3 Followup: ms3 - With: - When: 2 - 3 days - Reason: Recheck today's complaints Discharge Instructions: - Discharge Summary Sheet ms3 - Abdominal Pain, Adult ms3 - Urinary Tract Infection, Adult ms3 - Anemia ms3 Forms: - Medication Reconciliation Form ms3 - Thank You Letter ms3 - Antibiotic Education ms3 - Prescription Opioid Use ms3 Prescriptions: - Macrobid 100 mg Oral Capsule - take 1 capsule by ORAL route every 12 hours for 10 days; 20 capsule; Refills: ms3 0, Product Selection Permitted - dicyclomine 10 mg Oral capsule - take 1 capsule by ORAL route 3 times per day; 21 capsule; Refills: 0, Product ms3 Selection Permitted Signatures: Dispatcher [employer] EDEnrike Finch DO DO ms3 Adriana Green MD MD sd2 Pallavi Bai RN RN ha1 Corrections: (The following items were deleted from the chart) 06:44 06:43 Urine Dipstick-Ancillary ordered. sd2 sd2
[2022-09-17 08:53] VITALS: TEMP 98.9
[2022-09-17 08:56] VITALS: BP 127/93; O2SAT 99
== END 2022-09-17 08:43 | disposition home or self-care (01) ==
LOC: ER 06:26
DX: N39.0 Urinary tract infection, site not specified (principal); D64.9 Anemia, unspecified; N28.9 Disorder of kidney and ureter, unspecified; I10 Essential (primary) hypertension; Z88.1 Allergy status to other antibiotic agents; Z88.5 Allergy status to narcotic agent; Z88.8 Allergy status to other drugs, medicaments and biological substances
CPT/HCPCS: 87088; 85025; 87086; 36415; 87077; 87186; 84484; 83690; 80053; 71045; 96374; 99284; J2405; 81003; 81015; 93005

== ENCOUNTER 2022-09-19 14:55 | Emergency (ER) | payer OTHER ==
--- OUTSIDE RECORDS SUMMARY | 2022-09-19 15:12 | XMS REPORT | Continuity of Care Document ---
:1975 Author Organization [facility] t Address [address] [place] [address] Care Team Providers Name Role Phone Jessica_Barry Attending Clinician Unavailable Jessica_S Admitting Clinician Unavailable Payers Payer Name Policy Type Policy Number Effective Date Expiration Date [facility] 8 2021 (MEDICARE 00:00:00 REPLACEMENT [...] Facility Department ID 2021-07-10 2021-07-10 [place] [place] [id number] [facility] 05:13:00 05:13:00 1015 [facility] 2021-05-09 2021-05-09 [place] [facility] [place] [id number] [facility] 11:00:00 11:00:00 0814 Med[facility] Group 2021-05-07 2021-05-07 [id number] [facility] 12:00:00 12:00:00 0812 [facility] Results This patient has no known results.
[2022-09-19] MEDS ORDERED: IBUPROFEN 400 MG TAB ONE (15:40)
--- NOTE | 2022-09-19 16:30 | RAD REPORT ---
EXAM DESCRIPTION: RAD - Knee Left 3 View - 09/19/2022 4:22 pm CLINICAL HISTORY: PAIN COMPARISON: Knee Left 3 View dated 10/06/2021; Knee Left 3 View dated 10/01/2017 FINDINGS: No fracture or dislocation seen. Small suprapatellar joint effusion.
--- NOTE | 2022-09-19 16:59 | ER ---
Nurse's Notes [facility] Name: Linda Rahman Age: 47 yrs Sex: Female : 1975 Arrival Date: 09/19/2022 Time: 14:58 Bed 26 Private MD: Diagnosis: Pain in left knee Presentation: 09/19 15:01 Chief complaint: EMS states: Left knee pain x 3 years, worse today. Denies injury. hb Coronavirus screen: At this time, the client does not indicate any symptoms associated with coronavirus-19. Ebola Screen: No symptoms or risks identified at this time. Initial Sepsis Screen: Does the patient meet any 2 criteria? No. Patient's initial sepsis screen is negative. Does the patient have a suspected source of infection? No. Patient's initial sepsis screen is negative. Risk Assessment: Do you want to hurt yourself or someone else? Patient reports no desire to harm self or others. Onset of symptoms was September 19, 2022. 15:01 Method Of Arrival: EMS: [facility] hb 15:01 Acuity: [place] 4 hb Historical: - Allergies: 15:02 Amoxicillin; hb 15:02 Benadryl; hb 15:02 Codeine; hb 15:02 Demerol; hb 15:02 Geodon; hb 15:02 Meclizine; hb 15:02 Tessalon Perles; hb - PMHx: 15:57 Anemia; Anxiety; Asthma; diabetes mellitus; Hypertensive disorder; Hypothyroidism; em6 Migraine; - PSHx: 15:57 Cholecystectomy; tubal ligation; em6 - Immunization history:: Adult Immunizations unknown. - Social history:: Smoking status: unknown. Screenin:36 [facility] ED Fall Risk Assessment (Adult) History of falling in the last 3 months, em6 including since admission No falls in past 3 months (0 pts) Confusion or Disorientation No (0 pts) Intoxicated or Sedated No (0 pts) Impaired Gait Yes (1 pt) Mobility Assist Device Used Yes (1 pt) Altered Elimination No (0 pt) Score/Fall Risk Level 0 - 2 = Low Risk Oriented to surroundings, Maintained a safe environment, Educated pt \T\ family on fall prevention, incl call for assistance when getting out of bed, Assessed \T\ reinforced patient's understanding of fall precautions, Provided non-skid footwear, Hourly rounding (assess needs \T\ fall precautionary measures) done, Used ambulatory aids as needed (educated on \T\ assisted with), Used gait belt as appropriate. Abuse screen: Denies threats or abuse. Nutritional screening: No deficits noted. Tuberculosis screening: No symptoms or risk factors identified. Assessment: 15:36 General: Appears in no apparent distress. Behavior is cooperative. Pain: Complains of em6 pain in left leg Pain does not radiate. Pain currently is 9 out of 10 on a pain scale. Quality of pain is described as pressure, sharp. Neuro: Level of Consciousness is awake, alert, obeys commands, Oriented to person, place, time, situation. Cardiovascular: Patient's skin is warm and dry. Respiratory: Airway is patent Respiratory effort is even, unlabored, Respiratory pattern is regular, symmetrical. GI: No signs and/or symptoms were reported involving the gastrointestinal system. : No signs and/or symptoms were reported regarding the genitourinary system. EENT: No signs and/or symptoms were reported regarding the EENT system. Derm: No signs and/or symptoms reported regarding the dermatologic system. Musculoskeletal: Circulation, motion, and sensation intact. Range of motion: intact in all extremities. 16:40 Reassessment: Patient appears in no apparent distress at this time. No changes from em6 previously documented assessment. Patient and/or family updated on plan of care and expected duration. Pain level reassessed. Patient is alert, oriented x 3, equal unlabored respirations, skin warm/dry/pink. Vital Signs: 15:01 BP 112 / 65; Pulse 89; Resp 20; Temp 97.8; Pulse Ox 100% on R/A; Weight 102.97 kg; hb Height 5 ft. 2 in. (157.48 cm); Pain 9/10; 16:30 BP 100 / 69; Pulse 84; Resp 16; Pulse Ox 94% on R/A; em6 15:01 Body Mass Index 41.52 (102.97 kg, 157.48 cm) hb ED Course: 14:58 Patient arrived in ED. as 15:02 Genesis Mcmahon FNP-C is [facility]. kb 15:02 Young Hernandez MD is Attending Physician. kb 15:02 Triage completed. hb 15:03 Arm band placed on. hb 15:36 Charlie, Nava, RN is Primary Nurse. em6 15:36 Bed in low position. Call light in reach. Side rails up X 1. Pulse ox on. NIBP on. Warm em6 blanket given. 16:24 Knee Left 3 View XRAY In Process Unspecified. EDMS 17:14 No provider procedures requiring assistance completed. Patient did not have IV access em6 during this emergency room visit. Administered Medications: 15:39 Drug: Ibuprofen 800 mg Route: PO; em6 15:58 Follow up: Response: No adverse reaction em6 Medication: 17:14 VIS not applicable for this client. em6 Outcome: 16:59 Discharge ordered by . kb 17:19 Discharged to home via wheelchair. em6 17:19 Condition: stable 17:19 Discharge instructions given to patient, family, Instructed on discharge instructions, follow up and referral plans. medication usage, Demonstrated understanding of instructions, follow-up care, medications, splint care, Prescriptions given X 1. 17:21 Patient left the ED. em6 Signatures: Dispatcher [employer] EDMS Genesis Mcmahon, ACTUARIAL ASSOCIATE-C ANDREAS-Alayna Garland as Anushka Cheung, RN RN Nava Guerra, RN RN em6
--- NOTE | 2022-09-19 16:59 | EDPHYS ---
Physician Documentation [facility] Name: Linda Rahman Age: 47 yrs Sex: Female : 1975 Arrival Date: 09/19/2022 Time: 14:58 Bed 26 Private MD: ALEXA Physician Young Hernandez HPI: 09/19 17:04 This 47 yrs old Female presents to ER via EMS with complaints of Knee Pain. kb 17:04 The patient presents with pain, that is chronic. The complaints affect the left knee. kb Context: The problem was sustained at home, resulted from a chronic condition, the patient can partially bear weight. Onset: The symptoms/episode began/occurred today. Modifying factors: The symptoms are alleviated by nothing. the symptoms are aggravated by movement, weight bearing. Associated signs and symptoms: The patient has no apparent associated signs or symptoms. Treatment prior to arrival includes: no previous treatment. The patient has experienced similar episodes in the past, chronically. The patient has not recently seen a physician. Pt reports left knee pain that started today. States she has had this several times in the past and the joint is "bone on bone.". Historical: - Allergies: 15:02 Amoxicillin; hb 15:02 Benadryl; hb 15:02 Codeine; hb 15:02 Demerol; hb 15:02 Geodon; hb 15:02 Meclizine; hb 15:02 Tessalon Perles; hb - PMHx: 15:57 Anemia; Anxiety; Asthma; diabetes mellitus; Hypertensive disorder; Hypothyroidism; em6 Migraine; - PSHx: 15:57 Cholecystectomy; tubal ligation; em6 - Immunization history:: Adult Immunizations unknown. - Social history:: Smoking status: unknown. ROS: 17:03 Constitutional: Negative for fever, chills, and weight loss. kb 17:03 MS/extremity: Positive for pain, of the left knee. 17:03 All other systems are negative. Exam: 17:03 Constitutional: This is a well developed, well nourished patient who is awake, alert, kb and in no acute distress. Head/Face: Normocephalic, atraumatic. ENT: Moist Mucous membranes Cardiovascular: Regular rate and rhythm with a normal S1 and S2. No gallops, murmurs, or rubs. No pulse deficits. Respiratory: Respirations even and unlabored. No increased work of breathing. Talking in full sentences Abdomen/GI: Soft, non-tender. No distention Skin: Warm, dry with normal turgor. Normal color. MS/ Extremity: Pulses equal, no cyanosis. Neurovascular intact. Full, normal range of motion. Neuro: Awake and alert, GCS 15, oriented to person, place, time, and situation. Moves all extremities. Normal gait. Psych: Awake, alert, with orientation to person, place and time. Behavior, mood, and affect are within normal limits. Vital Signs: 15:01 BP 112 / 65; Pulse 89; Resp 20; Temp 97.8; Pulse Ox 100% on R/A; Weight 102.97 kg; hb Height 5 ft. 2 in. (157.48 cm); Pain 9/10; 16:30 BP 100 / 69; Pulse 84; Resp 16; Pulse Ox 94% on R/A; em6 15:01 Body Mass Index 41.52 (102.97 kg, 157.48 cm) hb MDM: 15:03 Patient medically screened. kb 16:58 Data reviewed: vital signs, nurses notes. Data interpreted: Pulse oximetry: on room air kb is 100 %. Interpretation: normal. Counseling: I had a detailed discussion with the patient and/or guardian regarding: the historical points, exam findings, and any diagnostic results supporting the discharge/admit diagnosis, radiology results, the need for outpatient follow up, a orthopedic surgeon, to return to the emergency department if symptoms worsen or persist or if there are any questions or concerns that arise at home. 09/19 15:19 Order name: Knee Left 3 View XRAY; Complete Time: 16:36 kb 09/19 16:57 Order name: Rainer Wrap; Complete Time: 17:13 kb Administered Medications: 15:39 Drug: Ibuprofen 800 mg Route: PO; em6 15:58 Follow up: Response: No adverse reaction em6 Disposition Summary: 09/19/22 16:59 Discharge Ordered Location: Home Condition: Stable kb Diagnosis - Pain in left knee kb Followup: kb - With: Emergency Department - When: As needed - Reason: Worsening of condition Followup: kb - With: Private Physician - When: 2 - 3 days - Reason: Recheck today's complaints, Continuance of care, Re-evaluation by your physician Discharge Instructions: - Discharge Summary Sheet kb - Musculoskeletal Pain kb - Acute Knee Pain, Adult, [id number] kb Forms: - Medication Reconciliation Form kb - Thank You Letter kb - Antibiotic Education kb - Prescription Opioid Use kb Prescriptions: - Ibuprofen 800 mg Oral Tablet - take 1 tablet by ORAL route every 8 hours As needed take with food; 30 tablet; kb Refills: 0, Product Selection Permitted Signatures: Dispatcher [employer] EDGenesis Schaefer, ANDREAS-C Anushka Enriquez, RN RN Nava Guerra RN RN em6
[2022-09-19 17:26] VITALS: TEMP 97.8
[2022-09-19 17:27] VITALS: BP 100/69; O2SAT 94
== END 2022-09-19 17:21 | disposition home or self-care (01) ==
LOC: ER 14:55
DX: M25.562 Pain in left knee (principal)
CPT/HCPCS: 99284

== ENCOUNTER 2022-10-04 16:05 | Emergency (ER) | payer OTHER ==
--- OUTSIDE RECORDS SUMMARY | 2022-10-04 16:40 | XMS REPORT | Continuity of Care Document ---
:1975 Author Organization [facility] t Address [address] [place] [address] Care Team Providers Name Role Phone Tray Jolly MD Primary Care Physician [phone] CECILE MÁRQUEZ Attending Clinician Unavailable TRAY JOLLY Attending Clinician Unavailable GREG JACKSON Attending Clinician Unavailable MARIBEL TINSLEY Attending Clinician Unavailable ARNOLDO ELIZABETH Attending Clinician Unavailable Tray Jolly MD Attending Clinician Melony Irwin RN Attending Clinician Unavailable Andrea Paula MD Attending Clinician Cecile Márquez MD Attending Clinician BERRY ZHAO Attending Clinician Unavailable Berry Tena Attending Clinician MATEO DE LA TORRE Attending Clinician Unavailable Doctor Unassigned, [place] Attending Clinician Unavailable STELLA WORLEY Attending Clinician Unavailable STELLA WORLEY Attending Clinician Unavailable NurseRy Attending Clinician Unavailable SANJAY SÁNCHEZ Attending Clinician Unavailable CLAU AGUILAR Attending Clinician Unavailable VIK OLIVEIRA Attending Clinician Unavailable Atul HOLLINS, Ricardo Roche Attending Clinician ISAC BARR Attending Clinician Unavailable Sheri Berrios MD Attending Clinician SHERI BERRIOS Attending Clinician Unavailable Destiny Oneill MD Attending Clinician DESTINY ONEILL Attending Clinician Unavailable Vik Oliveira MD Attending Clinician CAPRICE HENRIQUEZ Attending Clinician Unavailable Elliot FERNANDO, Young Attending Clinician Unavailable NAV ANTONIO Attending Clinician Unavailable Isac Barney S Attending Clinician Mateo De La Torre MD Attending Clinician Arnoldo Elizabeth MD Attending Clinician Jessie [facility], Genesis Shah Attending Clinician GABRIELLA SALAS Attending Clinician Unavailable ANDREA PAULA Attending Clinician Unavailable Scot [facility], Vik Fleming Attending Clinician Sanjay Sánchez NP Attending Clinician Gramm Corry JOHNS A Attending Clinician GRAMM CORRY A Attending Clinician Unavailable Caprice Henriquez MD Attending Clinician Caprice Ozuna RN Attending Clinician Unavailable Po, [facility] Attending Clinician Unavailable Jorge [...] Unavailable ROGE TENORIO Attending Clinician Unavailable RICARDO POLLARDHGabe Attending Clinician Unavailable MARCELINA VALERA Attending Clinician [...] Unavailable Cecile Márquez MD Admitting Clinician MATEO DE LA TORRE Admitting Clinician Unavailable DESTINY ONEILL Admitting Clinician Unavailable Eladia Admitting Clinician Unavailable CAPRICE HENRIQUEZ Admitting Clinician Unavailable Payers Payer Name Policy Type Policy Number Effective Date Expiration Date Mitzy mcneil [facility] DUAL [id number] 2021 COMP CHOICE PPO 00:00:00 DSNP [facility] STAR PLUS [id number] 2021 00:00:00 MEDICAID [facility] [id number] 2016 00:00:00 CIGNA HMO [id number] 2022 00:00:00 [facility] 2021 (MEDICARE 00:00:00 REPLACEMENT HMO) [employer] [id number] 2020 BEHAVIORAL 00:00:00 SOLUTIONS Problems Condition Condition Condition Status Onset Resolution Last Treating Co mments Source Name Details Category Date Date Treatment Clinician Date Allergy, Allergy, Disease Active 2021-09 [place] rs subsequent subsequent 2 [place] Poor Poor Disease Active 2021-09 [facility] dentition dentition 2- [place] of requiring [place] Med[place] to to Branch dentistry dentistry Mouth Mouth Disease Active 2021-09 Univers breathing breathing 2-09 ity of 00:00: Medical Branch Weakening Weakening Disease Active Uni vers of pelvic of pelvic 4-08 ity of fundus fundus 00:00: Medical Branch Intestinal Intestinal Disease Active Overview : Univers metaplasia metaplasia 4-05 Formattin ity of of body of of body of 00:00: g of this [place] stomach stomach 00 note Medical without without might be Branch dysplasia dysplasia different from the original. Added automatic ally from request for surgery [id number] Chronic Chronic Disease Active Overview: Univ ers superficia superficia 4-05 Formattin ity of l l 00:00: g of this [place] gastritis gastritis 00 note Medi cipriano without without might be Branch bleeding bleeding different from the original. Added automatic ally from request for surgery [id number] Hyperplast Hyperplast Disease Active Overview : Univers ic polyps ic polyps 4-05 Formattin i ty of of stomach of stomach 00:00: g of this 00 note Medical might be Branch different from the original. Added automatic ally from request for surgery [id number] Indigestio Indigestio Disease Active 2020-09 Overview : Univers n n 2-15 Formattin ity of 00:00: g of this note Medical might be Branch different from the original. Added automatic ally from request for surgery [id number] Bloating Bloating Disease Active 2020-09 Overview: Un jerrod 2-15 Formattin ity of 00:00: g of this note Medical might be Branch different from the original. Added automatic ally from request for surgery [id number] Dental Dental Disease Active Univers caries caries [...] vers hernia hernia 1-11 ity of 00:00: Medical Branch Renal Renal Disease Active Univers [...] of [place] of [place] [facility] Encounter Encounter Disease Active Uni vers for blood for blood 2-16 ity of transfus[place] transfusio [place] History of History of Disease Active U nivers tubal tubal 2-05 ity of ligation ligation 00:00: Medical Branch 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 [place] disorder[place] disorder, 00 [facility] in in Branch remission remission Hypothyroi Hypothyroi Disease Active U nivers d d 2-05 ity of 00:00: [facility] Essential Essential Disease Active Uni vers hypertensi hypertensi 2-05 it y of on, benign on, benign [place] [facility] Well woman Well woman Disease Active U nivers exam exam 2-05 ity of 00:00: [facility] Chest pain Chest pain Disease Active U nivers 9-13 ity of 00:00: [facility] Peripheral Peripheral Disease Active U nivers neuropathy neuropathy it y of [facility] 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 ity of [facility] PCOS PCOS Disease Active Univers (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) [facility] Branch Allergies, Adverse Reactions, Alerts Allergy Allergy Status Severity Reaction(s) Onset Inactive Treating Comm ents Source Name Type Date Date Clinician Milk Propensi Active Other - See sneeze Uni vers ty to comments 05-09 ity of adverse 00:00: [place] reaction 00 Medical s Branch MILK DRUG Active Other-Cmnt Univer s INGREDI 05-09 ity of 00:00: 00 Medical Branch Tomato Propensi Active Other - See Tomato Uni vers ty to comments 04-03 source ity of adverse 00:00: reportedl [place] reaction 00 y causes Medica l s excessive Branch sneezing. But pt still eats it. TOMATO DRUG Active Low Other-Cmnt Univer s INGREDI 04-03 ity of 00:00: [place] 00 Medical Branch Codeine Propensi Active Itching 2018-0 Univer s ty to 1-17 ity of adverse 00:00: [place] reaction 00 Medical s Branch CODEINE DRUG Active Low ITCHING 2018-0 Univers INGREDI 1-17 ity of 00:00: [place] 00 Medical Branch Lorazepa Propensi Active Swelling 2017-1 Hard to Uni vers m ty to 0-02 swallow ity of adverse 00:00: [place] reaction 00 Medical s Branch LORAZEPA DRUG Active High Swelling 2017-1 Univer s M INGREDI 0-02 ity of 00:00: [place] 00 Medical Branch Diphenhy Propensi Active Swelling 2017-0 Univ ers dramine ty to 7-18 ity [...] 2015-0 Univers ne Hcl ty to ns - ity of adverse 00:00: [place] reaction 00 Medical s Branch Ziprasid Propensi Active Hives 2014-0 Univer s one Hcl ty to 9-04 ity of adverse 00:00: [place] reaction 00 Medical s Branch MEPERIDI DRUG Active High Hallucinates 2014-0 Un jerrod [place] HCL INGREDI 9- ity of 00:00: [place] 00 Medical Branch ZIPRASID DRUG Active High Hives 2014-0 Univers ONE HCL INGREDI 9 ity of 00:00: [place] 00 Medical Branch AMOXICIL DRUG Active Med Hives 2015-0 Univers FRANCA INGREDI 05-30 ity of 00:00: [address] Social History Social Habit Start Date Stop Date Quantity Comments Source Exposure to 2022-08-24 2022-09-03 Not sure University SARS-CoV-2 (event) 00:00:00 11:12:00 [facility] Tobacco Comment 2022-06-17 2022-06-17 10 years ago Univers ity of 00:00:00 00:00:00 [facility] Cigarettes smoked 2022-06-17 2022-06-17 Univers ity of current (pack per 00:00:00 00:00:00 [facility] ) - Reported Branch Cigarette 2022-06-17 2022-06-17 University of pack-years 00:00:00 00:00:00 [facility] Tobacco use and 2022-06-17 2022-06-17 Smokeless Universit y of exposure 00:00:00 00:00:00 tobacco non-user [facility] Alcohol intake 2022-06-17 2022-06-17 0 /d University of 00:00:00 00:00:00 [facility] History of tobacco 1982-10-20 2007-10-20 Cigarette Smoker University of use 00:00:00 00:00:00 [facility] Sex [birth year] Universit y of 00:00:00 00:00:00 [facility] Smoking Status Start Date Stop Date Source Ex-smoker 2022-06-17 00:00:00 2022-06-17 00:00:00 Universi ty of [facility] Medications Ordered Filled Start Stop Current Ordering Indication Dosage Frequency Signature Comments Components Source Medication Medication Date Date Medication? Clinician (SIG) Name Name pregabalin 2021-09 Yes [id number] 150mg Take 1 Univers 150 mg 2-14 capsule by ity of capsule 00:00: mouth in [place] [address] the Medical morning Branch and 1 capsule at noon and 1 capsule in the evening. pregabalin 2021-09 Yes [id number] 150mg Take 1 Univers 150 mg 2-14 capsule by ity of capsule 00:00: mouth in [place] [address] the Medical morning Branch and 1 capsule at noon and 1 capsule in the evening. pregabalin 2021-09 Yes [id number] 150mg Take 1 Univers 150 mg 2-14 capsule by ity of capsule 00:00: mouth in [place] 00 the Medical morning Branch and 1 capsule at noon and 1 capsule in the evening. pregabalin 2021-09 Yes [id number] 150mg Take 1 Univers 150 mg 2-14 capsule by ity of capsule 00:00: mouth in [place] 00 the Medical morning Branch and 1 capsule at noon and 1 capsule in the evening. montelukast 2021-09 Yes [id number] 10mg Take 1 Univers (SINGULAIR) 2-09 tablet by ity of 10 mg 00:00: mouth in [place] tablet 00 the Medical morning. [place] montelukast 2021-09 Yes [id number] 10mg Take 1 Univers (SINGULAIR) 2-09 tablet by ity of 10 mg 00:00: mouth in [place] tablet 00 the Medical morning. [place] montelukast 2021-09 Yes [id number] 10mg Take 1 Univers (SINGULAIR) 2-09 tablet by ity of 10 mg 00:00: mouth in [place] tablet 00 the Medical morning. [place] montelukast 2021-09 Yes [id number] 10mg Take 1 Univers (SINGULAIR) 2-09 tablet by ity of 10 mg 00:00: mouth in [place] tablet 00 the Medical morning. [place] montelukast 2021-09 Yes [id number] 10mg Take 1 Univers (SINGULAIR) 2-09 tablet by ity of 10 mg 00:00: mouth in [place] tablet 00 the Medical morning. [place] montelukast 2021-09 Yes [id number] 10mg Take 1 Univers (SINGULAIR) 2-09 tablet by ity of 10 mg 00:00: mouth in [place] tablet 00 the Medical morning. [place] montelukast 2021-09 Yes [id number] 10mg Take 1 Univers (SINGULAIR) 2-09 tablet by ity of 10 mg 00:00: mouth in [place] tablet 00 the Medical morning. [place] montelukast 2021-09 Yes [id number] 10mg Take 1 Univers (SINGULAIR) 2-09 tablet by ity of 10 mg 00:00: mouth in [place] tablet 00 the Medical morning. [place] CYANOCOBALA 2021-09 Yes [id number] INJECT 1ML Univers MIN 1,000 1-30 INTRAMUSCU ity of mcg/mL 00:00: LARLY [place] injection 00 EVERY TWO Medic al WEEKS Branch CYANOCOBALA 2021-09 Yes [id number] INJECT 1ML Univers MIN 1,000 1-30 INTRAMUSCU ity of mcg/mL 00:00: LARLY [place] injection 00 EVERY TWO Medic al WEEKS Branch CYANOCOBALA 2021-09 Yes [id number] INJECT 1ML Univers MIN 1,000 1-30 INTRAMUSCU ity of mcg/mL 00:00: LARLY [place] injection 00 EVERY TWO Medic al WEEKS Branch CYANOCOBALA 2021-09 Yes [id number] INJECT 1ML Univers MIN 1,000 1-30 INTRAMUSCU ity of mcg/mL 00:00: LARLY [place] injection 00 EVERY TWO Medic al WEEKS Branch CYANOCOBALA 2021-09 Yes [id number] INJECT 1ML Univers MIN 1,000 1-30 INTRAMUSCU ity of mcg/mL 00:00: LARLY [place] injection 00 EVERY TWO Medic al WEEKS Branch CYANOCOBALA 2021-09 Yes [id number] INJECT 1ML Univers MIN 1,000 1-30 INTRAMUSCU ity of mcg/mL 00:00: LARLY [place] injection 00 EVERY TWO Medic al WEEKS Branch CYANOCOBALA 2021-09 Yes [id number] INJECT 1ML Univers MIN 1,000 1-30 INTRAMUSCU ity of mcg/mL 00:00: LARLY [place] injection 00 EVERY TWO Medic al WEEKS Branch CYANOCOBALA 2021-09 Yes [id number] INJECT 1ML Univers MIN 1,000 1-30 INTRAMUSCU ity of mcg/mL 00:00: LARLY [place] injection 00 EVERY TWO Medic al WEEKS Branch CYANOCOBALA 2021-09 Yes [id number] INJECT 1ML Univers MIN 1,000 1-30 INTRAMUSCU ity of mcg/mL 00:00: LARLY [place] injection 00 EVERY TWO Medic al WEEKS Branch levothyroxi 2021-09 Yes [id number] 50ug Take 1 Univers ne 50 mcg 1-03 tablet by ity o f tablet 00:00: mouth [place] 00 every Medical morning. Branch levothyroxi 2021-09 Yes [id number] 50ug Take 1 Univers ne 50 mcg 1-03 tablet by ity o f tablet 00:00: mouth [place] 00 every Medical morning. Branch levothyroxi 2021-09 Yes [id number] 50ug Take 1 Univers ne 50 mcg 1-03 tablet by ity o f tablet 00:00: mouth [place] 00 every Medical morning. Branch levothyroxi 2021-09 Yes [id number] 50ug Take 1 Univers ne 50 mcg 1-03 tablet by ity o f tablet 00:00: mouth [place] 00 every Medical morning. Branch levothyroxi 2021-09 Yes [id number] 50ug Take 1 Univers ne 50 mcg 1-03 tablet by ity o f tablet 00:00: mouth [place] 00 every Medical morning. Branch levothyroxi 2021-09 Yes [id number] 50ug Take 1 Univers ne 50 mcg 1-03 tablet by ity o f tablet 00:00: mouth [place] 00 every Medical morning. Branch levothyroxi 2021-09 Yes [id number] 50ug Take 1 Univers ne 50 mcg 1-03 tablet by ity o f tablet 00:00: mouth [place] 00 every Medical morning. Branch levothyroxi 2021-09 Yes [id number] 50ug Take 1 Univers ne 50 mcg 1-03 tablet by ity o f tablet 00:00: mouth [place] 00 every Medical morning. Branch levothyroxi 2021-09 Yes [id number] 50ug Take 1 Univers ne 50 mcg 1-03 tablet by ity o f tablet 00:00: mouth [place] 00 every Medical morning. Branch levothyroxi 2021-09 Yes [id number] 50ug Take 1 Univers ne 50 mcg 1-03 tablet by ity o f tablet 00:00: mouth [place] 00 every Medical morning. Branch levothyroxi 2021-09 Yes [id number] 50ug Take 1 Univers ne 50 mcg 1-03 tablet by ity o f tablet 00:00: mouth [place] 00 every Medical morning. Branch levothyroxi 2021-09 Yes [id number] 50ug Take 1 Univers ne 50 mcg 1-03 tablet by ity o f tablet 00:00: mouth [place] 00 every Medical morning. Branch levothyroxi 2021-09 Yes [id number] 50ug Take 1 Univers ne 50 mcg 1-03 tablet by ity o f tablet 00:00: mouth [place] 00 every Medical morning. Branch levothyroxi 2021-09 Yes [id number] 50ug Take 1 Univers ne 50 mcg 1-03 tablet by ity o f tablet 00:00: mouth [place] 00 every Medical morning. Branch levothyroxi 2021-09 Yes [id number] 50ug Take 1 Univers ne 50 mcg 1-03 tablet by ity o f tablet 00:00: [place] 00 every Medical morning. Branch levothyroxi 2021-09 Yes [id number] 50ug Take 1 Univers ne 50 mcg 1-03 tablet by ity o f tablet 00:00: [place] 00 every Medical morning. Branch DOCUSATE 2021-09 [...] Medical Branch DOCUSATE 2021-09 Yes Take by [facility] SODIUM 1-01 mouth. ity of (COLACE 08:06: [place] ORAL) 37 Medical Branch DOCUSATE 2021-09 Yes Take by [facility] SODIUM 1-01 mouth. ity of (COLACE 08:06: [place] ORAL) 37 Medical Branch DOCUSATE 2021-09 Yes Take by [facility] [place] [facility] s SODIUM 1- mouth. ity of (COLACE 08:06: [place] ORAL) 37 Medical Branch DOCUSATE 2021-09 Yes Take by [facility] [place] [facility] s SODIUM 1- mouth. ity of (COLACE 08:06: [place] ORAL) 37 Medical Branch DOCUSATE 2021-09 Yes Take by [facility] SODIUM 1- mouth. ity of (COLACE 08:06: [place] ORAL) 37 Medical Branch DOCUSATE 2021-09 Yes Take by [facility] SODIUM 1- mouth. ity of (COLACE 08:06: [place] ORAL) 37 Medical Branch DOCUSATE 2021-09 Yes Take by [facility] SODIUM 1- mouth. ity of (COLACE 08:06: [place] ORAL) Medical Branch diltiazem 2021-09 Yes [id number] 120mg Take 1 U nivers 120 mg 24 09-26 capsule by ity of hr capsule 00:00: mouth in [facility] as 00 the Medical morning Branch and 1 capsule in the evening. fluticasone 2021-09 Yes [id number] 2{puff} Inhale 2 Univers propionate 1-01 Puffs ity of (FLOVENT 00:00: every 12 [place] HFA) 110 00 (twelve) Medical mcg/actuati hours. Branch on inhaler Rinse mouth after each use. levothyroxi 2021-09 Yes [id number] 50ug Take 1 Univers ne 50 mcg 1-01 tablet by ity o f tablet 00:00: mouth [place] 00 every Medical morning. Branch metformin 2021-09 Yes [id number] 500mg Take 1 U nivers ER 500 mg 1-01 tablet by ity o f 24 hr 00:00: mouth [place] tablet 00 daily with Medical breakfast. Branch pantoprazol 2021-09 Yes [id number] 40mg Take 1 Univers e 40 mg EC 09-26 tablet by ity of tablet 00:00: mouth in [place] 00 the Medical morning. Branch pregabalin 2021-09 Yes [id number] 150mg Take 1 Univers 150 mg 1-01 capsule by ity of capsule 00:00: mouth in [place] 00 the Medical morning Branch and 1 capsule at noon and 1 capsule in the evening. rosuvastati 2021-09 Yes [id number] 10mg Take 1 Univers n 10 mg 1-01 tablet by ity of tablet 00:00: mouth at [place] 00 bedtime. Medical Branch SUMAtriptan 2021-09 Yes [id number] 50mg Take 1 Univers 50 mg 1-01 tablet by ity of tablet 00:00: mouth as [place] 00 needed for Medical Migraine. Branch diltiazem 2021-09 Yes [id number] 120mg Take 1 U nivers 120 mg 24 1- capsule by ity of hr capsule 00:00: mouth in [place] 00 the Medical morning Branch and 1 capsule in the evening. fluticasone 2021-09 Yes [id number] 2{puff} Inhale 2 Univers propionate 1-01 Puffs ity of (FLOVENT 00:00: every 12 [place] HFA) 110 00 (twelve) Medical mcg/actuati hours. Branch on inhaler Rinse mouth after each use. levothyroxi 2021-09 Yes [id number] 50ug Take 1 Univers ne 50 mcg 1-01 tablet by ity o f tablet 00:00: mouth [place] 00 every Medical morning. Branch metformin 2021-09 Yes [id number] 500mg Take 1 U nivers ER 500 mg 1-01 tablet by ity o f 24 hr 00:00: mouth [place] tablet 00 daily with Medical breakfast. Branch pantoprazol 2021-09 Yes [id number] 40mg Take 1 Univers e 40 mg EC 1-01 tablet by ity of tablet 00:00: mouth in [place] 00 the Medical morning. Branch pregabalin 2021-09 Yes [id number] 150mg Take 1 Univers 150 mg 1-01 capsule by ity of capsule 00:00: mouth in [place] 00 the Medical morning Branch and 1 capsule at noon and 1 capsule in the evening. rosuvastati 2021-09 Yes [id number] 10mg Take 1 Univers n 10 mg 1-01 tablet by ity of tablet 00:00: mouth at [place] [address] bedtime. Medical Branch SUMAtriptan 2021-09 Yes [id number] 50mg Take 1 Univers 50 mg 1-01 tablet by ity of tablet 00:00: mouth as [place] 00 needed for Medical Migraine. Branch diltiazem 2021-09 Yes [id number] 120mg Take 1 U nivers 120 mg 24 1-01 capsule by ity of hr capsule 00:00: mouth in [place] 00 the Medical morning Branch and 1 capsule in the evening. fluticasone 2021-09 Yes [id number] 2{puff} Inhale 2 Univers propionate 1-01 Puffs ity of (FLOVENT 00:00: every 12 [place] HFA) 110 00 (twelve) Medical mcg/actuati hours. Branch on inhaler Rinse mouth after each use. metformin 2021-09 Yes [id number] 500mg Take 1 U nivers ER 500 mg 1-01 tablet by ity o f 24 hr 00:00: mouth [place] tablet 00 daily with Medical breakfast. Branch pantoprazol 2021-09 Yes [id number] 40mg Take 1 Univers e 40 mg EC 1-01 tablet by ity of tablet 00:00: mouth in [place] 00 the Medical morning. Branch pregabalin 2021-09 Yes [id number] 150mg Take 1 Univers 150 mg 1-01 capsule by ity of capsule 00:00: mouth in [place] 00 the Medical morning Branch and 1 capsule at noon and 1 capsule in the evening. rosuvastati 2021-09 Yes [id number] 10mg Take 1 Univers n 10 mg 1-01 tablet by ity of tablet 00:00: mouth at [place] 00 bedtime. Medical Branch SUMAtriptan 2021-09 Yes [id number] 50mg Take 1 Univers 50 mg 1-01 tablet by ity of tablet 00:00: mouth as [place] 00 needed for Medical Migraine. Branch diltiazem 2021-09 Yes [id number] 120mg Take 1 U nivers 120 mg 24 1-01 capsule by ity of hr capsule 00:00: mouth in [place] 00 the Medical morning Branch and 1 capsule in the evening. fluticasone 2021-09 Yes [id number] 2{puff} Inhale 2 Univers propionate 1-01 Puffs ity of (FLOVENT 00:00: every 12 [place] HFA) 110 00 (twelve) Medical mcg/actuati hours. Branch on inhaler Rinse mouth after each use. metformin 2021-09 Yes [id number] 500mg Take 1 U nivers ER 500 mg 1-01 tablet by ity o f 24 hr 00:00: mouth [place] tablet 00 daily with Medical breakfast. Branch pantoprazol 2021-09 Yes [id number] 40mg Take 1 Univers e 40 mg EC 1-01 tablet by ity of tablet 00:00: mouth in [place] 00 the Medical morning. Branch pregabalin 2021-09 Yes [id number] 150mg Take 1 Univers 150 mg 1-01 capsule by ity of capsule 00:00: mouth in [place] 00 the Medical morning Branch and 1 capsule at noon and 1 capsule in the evening. rosuvastati 2021-09 Yes [id number] 10mg Take 1 Univers n 10 mg 1-01 tablet by ity of tablet 00:00: mouth at [place] [address] bedtime. Medical Branch SUMAtriptan 2021-09 Yes [id number] 50mg Take 1 Univers 50 mg 1-01 tablet by ity of tablet 00:00: mouth as [place] [address] needed for Medical Migraine. Branch diltiazem 2021-09 Yes [id number] 120mg Take 1 U nivers 120 mg 24 1- capsule by ity of hr capsule 00:00: mouth in [facility] as 00 the Medical morning Branch and 1 capsule in the evening. fluticasone 2021-09 Yes [id number] 2{puff} Inhale 2 Univers propionate 1-01 Puffs ity of (FLOVENT 00:00: every 12 [place] HFA) 110 00 (twelve) Medical mcg/actuati hours. Branch on inhaler Rinse mouth after each use. metformin 2021-09 Yes [id number] 500mg Take 1 U nivers ER 500 mg 1-01 tablet by ity o f 24 hr 00:00: mouth [place] tablet 00 daily with Medical breakfast. Branch pantoprazol 2021-09 Yes [id number] 40mg Take 1 Univers e 40 mg EC 1-01 tablet by ity of tablet 00:00: mouth in [place] 00 the Medical morning. Branch pregabalin 2021-09 Yes [id number] 150mg Take 1 Univers 150 mg 1-01 capsule by ity of capsule 00:00: mouth in [place] 00 the Medical morning Branch and 1 capsule at noon and 1 capsule in the evening. rosuvastati 2021-09 Yes [id number] 10mg Take 1 Univers n 10 mg 1-01 tablet by ity of tablet 00:00: mouth at [place] 00 bedtime. Medical Branch SUMAtriptan 2021-09 Yes [id number] 50mg Take 1 Univers 50 mg 1-01 tablet by ity of tablet 00:00: mouth as [place] 00 needed for Medical Migraine. Branch diltiazem 2021-09 Yes [id number] 120mg Take 1 U nivers 120 mg 24 1-01 capsule by ity of hr capsule 00:00: mouth in [place] 00 the Medical morning Branch and 1 capsule in the evening. fluticasone 2021-09 Yes [id number] 2{puff} Inhale 2 Univers propionate 1-01 Puffs ity of (FLOVENT 00:00: every 12 [place] HFA) 110 00 (twelve) Medical mcg/actuati hours. Branch on inhaler Rinse mouth after each use. metformin 2021-09 Yes [id number] 500mg Take 1 U nivers ER 500 mg 1-01 tablet by ity o f 24 hr 00:00: mouth [place] tablet 00 daily with Medical breakfast. Branch pantoprazol 2021-09 Yes [id number] 40mg Take 1 Univers e 40 mg EC 1-01 tablet by ity of tablet 00:00: mouth in [place] 00 the Medical morning. Branch pregabalin 2021-09 Yes [id number] 150mg Take 1 Univers 150 mg 1-01 capsule by ity of capsule 00:00: mouth in [place] 00 the Medical morning Branch and 1 capsule at noon and 1 capsule in the evening. rosuvastati 2021-09 Yes [id number] 10mg Take 1 Univers n 10 mg 1-01 tablet by ity of tablet 00:00: mouth at [place] [address] bedtime. Medical Branch SUMAtriptan 2021-09 Yes [id number] 50mg Take 1 Univers 50 mg 1-01 tablet by ity of tablet 00:00: mouth as [place] 00 needed for Medical Migraine. Branch diltiazem 2021-09 Yes [id number] 120mg Take 1 U nivers 120 mg 24 1-01 capsule by ity of hr capsule 00:00: mouth in [place] as 00 the Medical morning Branch and 1 capsule in the evening. fluticasone 2021-09 Yes [id number] 2{puff} Inhale 2 [facility] propionate 1-01 Puffs ity of (FLOVENT 00:00: every 12 [place] HFA) 110 00 (twelve) Medical mcg/actuati hours. Branch on inhaler Rinse mouth after each use. metformin 2021-09 Yes [id number] 500mg Take 1 U nivers ER 500 mg 1-01 tablet by ity o f 24 hr 00:00: mouth [place] tablet 00 daily with Medical breakfast. Branch pantoprazol 2021-09 Yes [id number] 40mg Take 1 [facility] e 40 mg EC 1-01 tablet by ity of tablet 00:00: mouth in [place] 00 the Medical morning. Branch pregabalin 2021-09 Yes [id number] 150mg Take 1 [facility] 150 mg 1-01 capsule by ity of capsule 00:00: mouth in [place] 00 the Medical morning Branch and 1 capsule at noon and 1 capsule in the evening. rosuvastati 2021-09 Yes [id number] 10mg Take 1 [facility] n 10 mg 1-01 tablet by ity of tablet 00:00: mouth at [place] [address] bedtime. Medical Branch SUMAtriptan 2021-09 Yes [id number] 50mg Take 1 [facility] 50 mg 1-01 tablet by ity of tablet 00:00: mouth as [place] 00 needed for Medical Migraine. Branch diltiazem 2021-09 Yes [id number] 120mg Take 1 U nivers 120 mg 24 1-01 capsule by ity of hr capsule 00:00: mouth in [facility] as 00 the Medical morning Branch and 1 capsule in the evening. fluticasone 2021-09 Yes [id number] 2{puff} Inhale 2 [facility] propionate 1-01 Puffs ity of (FLOVENT 00:00: every 12 [facility]) 110 00 (twelve) Medical mcg/actuati hours. Branch on inhaler Rinse mouth after each use. metformin 2021-09 Yes [id number] 500mg Take 1 U nivers ER 500 mg 1-01 tablet by ity o f 24 hr 00:00: mouth [place] tablet 00 daily with Medical breakfast. Branch pantoprazol 2021-09 Yes [id number] 40mg Take 1 [facility] e 40 mg EC 1-01 tablet by ity of tablet 00:00: mouth in [place] 00 the Medical morning. Branch pregabalin 2021-09 Yes [id number] 150mg Take 1 [facility] 150 mg 1-01 capsule by ity of capsule 00:00: mouth in [place] 00 the Medical morning Branch and 1 capsule at noon and 1 capsule in the evening. rosuvastati 2021-09 Yes [id number] 10mg Take 1 [facility] n 10 mg 1-01 tablet by ity of tablet 00:00: mouth at [place] 00 bedtime. Medical Branch SUMAtriptan 2021-09 Yes [id number] 50mg Take 1 [facility] 50 mg 1-01 tablet by ity of tablet 00:00: mouth as [place] 00 needed for Medical Migraine. Branch diltiazem 2021-09 Yes [id number] 120mg Take 1 U nivers 120 mg 24 1-01 capsule by ity of hr capsule 00:00: mouth in [place] as 00 the Medical morning Branch and 1 capsule in the evening. fluticasone 2021-09 Yes [id number] 2{puff} Inhale 2 [facility] propionate 1-01 Puffs ity of (FLOVENT 00:00: every 12 [place] HFA) 110 00 (twelve) Medical mcg/actuati hours. Branch on inhaler Rinse mouth after each use. metformin 2021-09 Yes [id number] 500mg Take 1 U nivers ER 500 mg 1-01 tablet by ity o f 24 hr 00:00: mouth [place] tablet 00 daily with Medical breakfast. Branch pantoprazol 2021-09 Yes [id number] 40mg Take 1 [facility] e 40 mg EC 1-01 tablet by ity of tablet 00:00: mouth in [place] 00 the Medical morning. Branch pregabalin 2021-09 Yes [id number] 150mg Take 1 [facility] 150 mg 1-01 capsule by ity of capsule 00:00: mouth in [place] 00 the Medical morning Branch and 1 capsule at noon and 1 capsule in the evening. rosuvastati 2021-09 Yes [id number] 10mg Take 1 [facility] n 10 mg 1-01 tablet by ity of tablet 00:00: mouth at [place] [address] bedtime. Medical Branch SUMAtriptan 2021-09 Yes [id number] 50mg Take 1 [facility] 50 mg 1-01 tablet by ity of tablet 00:00: mouth as [place] 00 needed for Medical Migraine. Branch diltiazem 2021-09 Yes [id number] 120mg Take 1 [facility] nivers 120 mg 24 1-01 capsule by ity of hr capsule 00:00: mouth in [facility] as 00 the Medical morning Branch and 1 capsule in the evening. fluticasone 2021-09 Yes [id number] 2{puff} Inhale 2 [facility] propionate 1-01 Puffs ity of (FLOVENT 00:00: every 12 [place] HF) 110 00 (twelve) Medical mcg/actuati hours. Branch on inhaler Rinse mouth after each use. metformin 2021-09 Yes [id number] 500mg Take 1 U nivers ER 500 mg 1-01 tablet by ity o f 24 hr 00:00: mouth [place] tablet 00 daily with Medical breakfast. Branch pantoprazol 2021-09 Yes [id number] 40mg Take 1 [facility] e 40 mg EC 1-01 tablet by ity of tablet 00:00: mouth in [place] 00 the Medical morning. Branch pregabalin 2021-09 Yes [id number] 150mg Take 1 [facility] 150 mg 1-01 capsule by ity of capsule 00:00: mouth in [place] 00 the Medical morning Branch and 1 capsule at noon and 1 capsule in the evening. rosuvastati 2021-09 Yes [id number] 10mg Take 1 [facility] n 10 mg 1-01 tablet by ity of tablet 00:00: mouth at [place] 00 bedtime. Medical Branch SUMAtriptan 2021-09 Yes [id number] 50mg Take 1 [facility] 50 mg 1-01 tablet by ity of tablet 00:00: mouth as [place] 00 needed for Medical Migraine. Branch diltiazem 2021-09 Yes [id number] 120mg Take 1 U nivers 120 mg 24 1-01 capsule by ity of hr capsule 00:00: mouth in [facility] as 00 the Medical morning Branch and 1 capsule in the evening. fluticasone 2021-09 Yes [id number] 2{puff} Inhale 2 [facility] propionate 1-01 Puffs ity of (FLOVENT 00:00: every 12 [place] HFA) 110 00 (twelve) Medical mcg/actuati hours. Branch on inhaler Rinse mouth after each use. metformin 2021-09 Yes [id number] 500mg Take 1 U nivers ER 500 mg 1-01 tablet by ity o f 24 hr 00:00: mouth [place] tablet 00 daily with Medical breakfast. Branch pantoprazol 2021-09 Yes [id number] 40mg Take 1 [facility] e 40 mg EC 1-01 tablet by ity of tablet 00:00: mouth in [place] 00 the Medical morning. Branch pregabalin 2021-09 Yes [id number] 150mg Take 1 [facility] 150 mg 1-01 capsule by ity of capsule 00:00: mouth in [place] 00 the Medical morning Branch and 1 capsule at noon and 1 capsule in the evening. rosuvastati 2021-09 Yes [id number] 10mg Take 1 [facility] n 10 mg 1-01 tablet by ity of tablet 00:00: mouth at [place] 00 bedtime. Medical Branch SUMAtriptan 2021-09 Yes [id number] 50mg Take 1 [facility] 50 mg 1-01 tablet by ity of tablet 00:00: mouth as [place] 00 needed for Medical Migraine. Branch diltiazem 2021-09 Yes [id number] 120mg Take 1 [facility] nivers 120 mg 24 1-01 capsule by ity of hr capsule 00:00: mouth in [place] as 00 the Medical morning Branch and 1 capsule in the evening. fluticasone 2021-09 Yes [id number] 2{puff} Inhale 2 [facility] propionate 1-01 Puffs ity of (FLOVENT 00:00: every 12 [place] HFA) 110 00 (twelve) Medical mcg/actuati hours. Branch on inhaler Rinse mouth after each use. metformin 2021-09 Yes [id number] 500mg Take 1 U nivers ER 500 mg 1-01 tablet by ity o f 24 hr 00:00: mouth [place] tablet 00 daily with Medical breakfast. Branch pantoprazol 2021-09 Yes [id number] 40mg Take 1 [facility] e 40 mg EC 1-01 tablet by ity of tablet 00:00: mouth in [place] 00 the Medical morning. Branch pregabalin 2021-09 Yes [id number] 150mg Take 1 [facility] 150 mg 1-01 capsule by ity of capsule 00:00: mouth in [place] 00 the Medical morning Branch and 1 capsule at noon and 1 capsule in the evening. rosuvastati 2021-09 Yes [id number] 10mg Take 1 [facility] n 10 mg 1-01 tablet by ity of tablet 00:00: mouth at [place] 00 bedtime. Medical Branch SUMAtriptan 2021-09 Yes [id number] 50mg Take 1 [facility] 50 mg 1-01 tablet by ity of tablet 00:00: mouth as [place] 00 needed for Medical Migraine. Branch diltiazem 2021-09 Yes [id number] 120mg Take 1 U nivers 120 mg 24 1-01 capsule by ity of hr capsule 00:00: mouth in [place] as 00 the Medical morning Branch and 1 capsule in the evening. fluticasone 2021-09 Yes [id number] 2{puff} Inhale 2 [facility] propionate 1-01 Puffs ity of (FLOVENT 00:00: every 12 [facility]) 110 00 (twelve) Medical mcg/actuati hours. Branch on inhaler Rinse mouth after each use. metformin 2021-09 Yes [id number] 500mg Take 1 U nivers ER 500 mg 1-01 tablet by ity o f 24 hr 00:00: mouth [place] tablet 00 daily with Medical breakfast. Branch pantoprazol 2021-09 Yes [id number] 40mg Take 1 [facility] e 40 mg EC 1-01 tablet by ity of tablet 00:00: mouth in [place] 00 the Medical morning. Branch pregabalin 2021-09 Yes [id number] 150mg Take 1 [facility] 150 mg 1-01 capsule by ity of capsule 00:00: mouth in [place] 00 the Medical morning Branch and 1 capsule at noon and 1 capsule in the evening. rosuvastati 2021-09 Yes [id number] 10mg Take 1 [facility] n 10 mg 1-01 tablet by ity of tablet 00:00: mouth at [place] 00 bedtime. Medical Branch SUMAtriptan 2021-09 Yes [id number] 50mg Take 1 [facility] 50 mg 1-01 tablet by ity of tablet 00:00: mouth as [place] 00 needed for Medical Migraine. Branch diltiazem 2021-09 Yes [id number] 120mg Take 1 [facility] nivers 120 mg 24 1-01 capsule by ity of hr capsule 00:00: mouth in [facility] as 00 the Medical morning Branch and 1 capsule in the evening. fluticasone 2021-09 Yes [id number] 2{puff} Inhale 2 [facility] propionate 1-01 Puffs ity of (FLOVENT 00:00: every 12 [facility]) 110 00 (twelve) Medical mcg/actuati hours. Branch on inhaler Rinse mouth after each use. metformin 2021-09 Yes [id number] 500mg Take 1 U nivers ER 500 mg 1-01 tablet by ity o f 24 hr 00:00: mouth [place] tablet 00 daily with Medical breakfast. Branch pantoprazol 2021-09 Yes [id number] 40mg Take 1 [facility] e 40 mg EC 1-01 tablet by ity of tablet 00:00: mouth in [place] 00 the Medical morning. Branch rosuvastati 2021-09 Yes [id number] 10mg Take 1 [facility] n 10 mg 1-01 tablet by ity of tablet 00:00: mouth at [place] 00 bedtime. Medical Branch SUMAtriptan 2021-09 Yes [id number] 50mg Take 1 [facility] 50 mg 1-01 tablet by ity of tablet 00:00: mouth as [place] 00 needed for Medical Migraine. Branch diltiazem 2021-09 Yes [id number] 120mg Take 1 U nivers 120 mg 24 1-01 capsule by ity of hr capsule 00:00: mouth in [place] as 00 the Medical morning Branch and 1 capsule in the evening. fluticasone 2021-09 Yes [id number] 2{puff} Inhale 2 [facility] propionate 1-01 Puffs ity of (FLOVENT 00:00: every 12 [place] HF) 110 00 (twelve) Medical mcg/actuati hours. Branch on inhaler Rinse mouth after each use. metformin 2021-09 Yes [id number] 500mg Take 1 U nivers ER 500 mg 1-01 tablet by ity o f 24 hr 00:00: mouth [place] tablet 00 daily with Medical breakfast. Branch pantoprazol 2021-09 Yes [id number] 40mg Take 1 [facility] e 40 mg EC 1-01 tablet by ity of tablet 00:00: mouth in [place] 00 the Medical morning. Branch rosuvastati 2021-09 Yes [id number] 10mg Take 1 [facility] n 10 mg 1-01 tablet by ity of tablet 00:00: mouth at [place] 00 bedtime. Medical Branch SUMAtriptan 2021-09 Yes [id number] 50mg Take 1 [facility] 50 mg 1-01 tablet by ity of tablet 00:00: mouth as [place] 00 needed for Medical Migraine. Branch diltiazem 2021-09 Yes [id number] 120mg Take 1 U nivers 120 mg 24 1-01 capsule by ity of hr capsule 00:00: mouth in [place] as 00 the Medical morning Branch and 1 capsule in the evening. fluticasone 2021-09 Yes [id number] 2{puff} Inhale 2 [facility] propionate 1-01 Puffs ity of (FLOVENT 00:00: every 12 [place] HFA) 110 00 (twelve) Medical mcg/actuati hours. Branch on inhaler Rinse mouth after each use. metformin 2021-09 Yes [id number] 500mg Take 1 U nivers ER 500 mg 1-01 tablet by ity o f 24 hr 00:00: mouth [place] tablet 00 daily with Medical breakfast. Branch pantoprazol 2021-09 Yes [id number] 40mg Take 1 [facility] e 40 mg EC 1-01 tablet by ity of tablet 00:00: mouth in [place] 00 the Medical morning. Branch rosuvastati 2021-09 Yes [id number] 10mg Take 1 [facility] n 10 mg 1-01 tablet by ity of tablet 00:00: mouth at [place] 00 bedtime. Medical Branch SUMAtriptan 2021-09 Yes [id number] 50mg Take 1 [facility] 50 mg 1-01 tablet by ity of tablet 00:00: mouth as [place] 00 needed for Medical Migraine. Branch diltiazem 2021-09 Yes [id number] 120mg Take 1 [facility] nivers 120 mg 24 1-01 capsule by ity of hr capsule 00:00: mouth in [place] as 00 the Medical morning Branch and 1 capsule in the evening. fluticasone 2021-09 Yes [id number] 2{puff} Inhale 2 [facility] propionate 1-01 Puffs ity of (FLOVENT 00:00: every 12 [place] HFA) 110 00 (twelve) Medical mcg/actuati hours. Branch on inhaler Rinse mouth after each use. metformin 2021-09 Yes [id number] 500mg Take 1 U nivers ER 500 mg 1-01 tablet by ity o f 24 hr 00:00: mouth [place] tablet 00 daily with Medical breakfast. Branch pantoprazol 2021-09 Yes [id number] 40mg Take 1 [facility] e 40 mg EC 1-01 tablet by ity of tablet 00:00: mouth in [place] 00 the Medical morning. Branch rosuvastati 2021-09 Yes [id number] 10mg Take 1 [facility] n 10 mg 1-01 tablet by ity of tablet 00:00: mouth at [place] [address] bedtime. Medical Branch SUMAtriptan 2021-09 Yes [id number] 50mg Take 1 [facility] 50 mg 1-01 tablet by ity of tablet 00:00: mouth as [place] 00 needed for Medical Migraine. Branch diltiazem 2021-09 Yes [id number] 120mg Take 1 U nivers 120 mg 24 - capsule by ity of hr capsule 00:00: mouth in [place] as 00 the Medical morning Branch and 1 capsule in the evening. fluticasone 2021-09 Yes [id number] 2{puff} Inhale 2 [facility] propionate 1-01 Puffs ity of (FLOVENT 00:00: every 12 [place] HFA) 110 00 (twelve) Medical mcg/actuati hours. Branch on inhaler Rinse mouth after each use. metformin 2021-09 Yes [id number] 500mg Take 1 U nivers ER 500 mg - tablet by ity o f 24 hr 00:00: mouth [place] tablet 00 daily with Medical breakfast. Branch pantoprazol 2021-09 Yes [id number] 40mg Take 1 [facility] e 40 mg EC 09-26 tablet by ity of tablet 00:00: mouth in [place] 00 the Medical morning. Branch rosuvastati 2021-09 Yes [id number] 10mg Take 1 [facility] n 10 mg 09-26 tablet by ity of tablet 00:00: mouth at [place] 00 bedtime. Medical Branch SUMAtriptan 2021-09 Yes [id number] 50mg Take 1 [facility] 50 mg 09-26 tablet by ity of tablet 00:00: mouth as [place] 00 needed for Medical Migraine. Branch pregabalin 2021-09- No [id number] 150mg Take 1 [facility] 150 mg 09-26 12-14 capsule by ity of capsule 00:00: 00:00 mouth in [place] 00 :00 the Medical morning Branch and 1 capsule at noon and 1 capsule in the evening. levothyroxi 2021-09- No [id number] 50ug Take 1 [facility] ne 50 mcg 09-26 tablet by ity of tablet 00:00: 00:00 mouth [place] 00 :00 every Medical morning. Branch levothyroxi 2021-09- No [id number] 50ug Take 1 [facility] ne 50 mcg 09-26 tablet by ity of tablet 00:00: 00:00 mouth [place] 00 :00 every Medical morning. Branch busPIRone 2021-09 Yes [id number] 20mg Take 2 [facility] [place] 10 mg 0-13 tablets by ity of tablet 00:00: mouth in [place] 00 the Medical morning Branch and 2 tablets in the evening. diltiazem 2021-09 Yes [id number] 120mg Take 1 U nivers 120 mg 24 0-13 capsule by ity of hr capsule 00:00: mouth in [place] as 00 the Medical morning Branch and 1 capsule in the evening. levothyroxi 2021-09 Yes [id number] 50ug Take 1 [facility] ne 50 mcg 0-13 tablet by ity o f tablet 00:00: mouth [place] 00 every Medical morning. Branch losartan 50 2021-09 Yes [id number] 50mg Take 1 [facility] mg tablet 0-13 tablet by ity o f 00:00: mouth in [place] 00 the Medical morning Branch and 1 tablet in the evening. metformin 2021-09 Yes [id number] 500mg Take 1 U nivers ER 500 mg 0-13 tablet by ity o f 24 hr 00:00: mouth [place] tablet 00 daily with Medical breakfast. Branch STOP REGULAR METFORMIN. mirabegron 2021-09 Yes [id number] 50mg Take 1 [facility] (MYRBETRIQ) 0-13 tablet by ity of 50 mg 00:00: mouth in [place] tablet 00 the Medical morning. Branch semaglutide 2021-09 Yes [id number] Inject [facility] (OZEMPIC) 0-13 0.25 mg ity of 0.25 mg or 00:00: under the [place] 0.5 mg(2 00 skin Medical mg/1.5 mL) weekly. Branch PnIj pantoprazol 2021-09 Yes [id number] 40mg Take 1 [facility] e 40 mg EC 0-13 tablet by ity of tablet 00:00: mouth in [place] 00 the Medical morning. Branch pregabalin 2021-09 Yes [id number] 150mg Take 1 [facility] 150 mg 0-13 capsule by ity of capsule 00:00: mouth in [place] 00 the Medical morning Branch and 1 capsule at noon and 1 capsule in the evening. rosuvastati 2021-09 Yes [id number] 10mg Take 1 [facility] n 10 mg 0-13 tablet by ity of tablet 00:00: mouth at [place] 00 bedtime. Medical Branch SUMAtriptan 2021-09 Yes [id number] 50mg Take 1 [facility] 50 mg 0-13 tablet by ity of tablet 00:00: mouth as [place] 00 needed for Medical Migraine. Branch topiramate 2021-09 Yes [id number] 75mg Take 3 [facility] 25 mg 0-13 tablets by ity of tablet 00:00: mouth in [place] 00 the Medical morning Branch and 3 tablets in the evening. busPIRone 2021-09 Yes [id number] 20mg Take 2 [facility] [place] 10 mg 0-13 tablets by ity of tablet 00:00: mouth in [place] 00 the Medical morning Branch and 2 tablets in the evening. losartan 50 2021-09 Yes [id number] 50mg Take 1 [facility] mg tablet 0-13 tablet by ity o f 00:00: mouth in [place] 00 the Medical morning Branch and 1 tablet in the evening. mirabegron 2021-09 Yes [id number] 50mg Take 1 [facility] (MYRBETRIQ) 0-13 tablet by ity of 50 mg 00:00: mouth in [place] tablet 00 the Medical morning. Branch semaglutide 2021-09 Yes [id number] Inject [facility] (OZEMPIC) 0-13 0.25 mg ity of 0.25 mg or 00:00: under the [place] 0.5 mg(2 00 skin Medical mg/1.5 mL) weekly. Branch PnIj topiramate 2021-09 Yes [id number] 75mg Take 3 [facility] 25 mg 0-13 tablets by ity of tablet 00:00: mouth in [place] 00 the Medical morning Branch and 3 tablets in the evening. busPIRone 2021-09 Yes [id number] 20mg Take 2 [facility] [place] 10 mg 0-13 tablets by ity of tablet 00:00: mouth in [place] 00 the Medical morning Branch and 2 tablets in the evening. losartan 50 2021-09 Yes [id number] 50mg Take 1 [facility] mg tablet 0-13 tablet by ity o f 00:00: mouth in [place] 00 the Medical morning Branch and 1 tablet in the evening. mirabegron 2021-09 Yes [id number] 50mg Take 1 [facility] (MYRBETRIQ) 0-13 tablet by ity of 50 mg 00:00: mouth in [place] tablet 00 the Medical morning. Branch semaglutide 2021-09 Yes [id number] Inject [facility] (OZEMPIC) 0-13 0.25 mg ity of 0.25 mg or 00:00: under the [place] 0.5 mg(2 00 skin Medical mg/1.5 mL) weekly. Branch PnIj topiramate 2021-09 Yes [id number] 75mg Take 3 [facility] 25 mg 0-13 tablets by ity of tablet 00:00: mouth in [place] 00 the Medical morning Branch and 3 tablets in the evening. busPIRone 2021-09 Yes [id number] 20mg Take 2 [facility] [place] 10 mg 0-13 tablets by ity of tablet 00:00: mouth in [place] 00 the Medical morning Branch and 2 tablets in the evening. losartan 50 2021-09 Yes [id number] 50mg Take 1 [facility] mg tablet 0-13 tablet by ity o f 00:00: mouth in [place] 00 the Medical morning Branch and 1 tablet in the evening. mirabegron 2021-09 Yes [id number] 50mg Take 1 [facility] (MYRBETRIQ) 0-13 tablet by ity of 50 mg 00:00: mouth in [place] tablet 00 the Medical morning. Branch semaglutide 2021-09 Yes [id number] Inject [facility] (OZEMPIC) 0-13 0.25 mg ity of 0.25 mg or 00:00: under the [place] 0.5 mg(2 00 skin Medical mg/1.5 mL) weekly. Branch PnIj topiramate 2021-09 Yes [id number] 75mg Take 3 [facility] 25 mg 0-13 tablets by ity of tablet 00:00: mouth in [place] 00 the Medical morning Branch and 3 tablets in the evening. busPIRone 2021-09 Yes [id number] 20mg Take 2 [facility] [place] 10 mg 0-13 tablets by ity of tablet 00:00: mouth in [place] 00 the Medical morning Branch and 2 tablets in the evening. losartan 50 2021-09 Yes [id number] 50mg Take 1 [facility] mg tablet 0-13 tablet by ity o f 00:00: mouth in [place] 00 the Medical morning Branch and 1 tablet in the evening. mirabegron 2021-09 Yes [id number] 50mg Take 1 [facility] (MYRBETRIQ) 0-13 tablet by ity of 50 mg 00:00: mouth in [place] tablet 00 the Medical morning. Branch semaglutide 2021-09 Yes [id number] Inject [facility] (OZEMPIC) 0-13 0.25 mg ity of 0.25 mg or 00:00: under the [place] 0.5 mg(2 00 skin Medical mg/1.5 mL) weekly. Branch PnIj topiramate 2021-09 Yes [id number] 75mg Take 3 [facility] 25 mg 0-13 tablets by ity of tablet 00:00: mouth in [place] 00 the Medical morning Branch and 3 tablets in the evening. busPIRone 2021-09 Yes [id number] 20mg Take 2 [facility] [place] 10 mg 0-13 tablets by ity of tablet 00:00: mouth in [place] 00 the Medical morning Branch and 2 tablets in the evening. losartan 50 2021-09 Yes [id number] 50mg Take 1 [facility] mg tablet 0-13 tablet by ity o f 00:00: mouth in [place] 00 the Medical morning Branch and 1 tablet in the evening. mirabegron 2021-09 Yes [id number] 50mg Take 1 [facility] (MYRBETRIQ) 0-13 tablet by ity of 50 mg 00:00: mouth in [place] tablet 00 the Medical morning. Branch semaglutide 2021-09 Yes [id number] Inject [facility] (OZEMPIC) 0-13 0.25 mg ity of 0.25 mg or 00:00: under the [place] 0.5 mg(2 00 skin Medical mg/1.5 mL) weekly. Branch PnIj topiramate 2021-09 Yes [id number] 75mg Take 3 [facility] 25 mg 0-13 tablets by ity of tablet 00:00: mouth in [place] 00 the Medical morning Branch and 3 tablets in the evening. busPIRone 2021-09 Yes [id number] 20mg Take 2 [facility] [place] 10 mg 0-13 tablets by ity of tablet 00:00: mouth in [place] 00 the Medical morning Branch and 2 tablets in the evening. losartan 50 2021-09 Yes [id number] 50mg Take 1 [facility] mg tablet 0-13 tablet by ity o f 00:00: mouth in [place] 00 the Medical morning Branch and 1 tablet in the evening. mirabegron 2021-09 Yes [id number] 50mg Take 1 [facility] (MYRBETRIQ) 0-13 tablet by ity of 50 mg 00:00: mouth in [place] tablet 00 the Medical morning. Branch semaglutide 2021-09 Yes [id number] Inject [facility] (OZEMPIC) 0-13 0.25 mg ity of 0.25 mg or 00:00: under the [place] 0.5 mg(2 00 skin Medical mg/1.5 mL) weekly. Branch PnIj topiramate 2021-09 Yes [id number] 75mg Take 3 [facility] 25 mg 0-13 tablets by ity of tablet 00:00: mouth in [place] 00 the Medical morning Branch and 3 tablets in the evening. busPIRone 2021-09 Yes [id number] 20mg Take 2 [facility] [place] 10 mg 0-13 tablets by ity of tablet 00:00: mouth in [place] 00 the Medical morning Branch and 2 tablets in the evening. losartan 50 2021-09 Yes [id number] 50mg Take 1 [facility] mg tablet 0-13 tablet by ity o f 00:00: mouth in [place] 00 the Medical morning Branch and 1 tablet in the evening. mirabegron 2021-09 Yes [id number] 50mg Take 1 [facility] (MYRBETRIQ) 0-13 tablet by ity of 50 mg 00:00: mouth in [place] tablet 00 the Medical morning. Branch semaglutide 2021-09 Yes [id number] Inject [facility] (OZEMPIC) 0-13 0.25 mg ity of 0.25 mg or 00:00: under the [place] 0.5 mg(2 00 skin Medical mg/1.5 mL) weekly. Branch PnIj topiramate 2021-09 Yes [id number] 75mg Take 3 [facility] 25 mg 0-13 tablets by ity of tablet 00:00: mouth in [place] 00 the Medical morning Branch and 3 tablets in the evening. busPIRone 2021-09 Yes [id number] 20mg Take 2 [facility] [place] 10 mg 0-13 tablets by ity of tablet 00:00: mouth in [place] 00 the Medical morning Branch and 2 tablets in the evening. losartan 50 2021-09 Yes [id number] 50mg Take 1 [facility] mg tablet 0-13 tablet by ity o f 00:00: mouth in [place] 00 the Medical morning Branch and 1 tablet in the evening. mirabegron 2021-09 Yes [id number] 50mg Take 1 [facility] (MYRBETRIQ) 0-13 tablet by ity of 50 mg 00:00: mouth in [place] tablet 00 the Medical morning. Branch semaglutide 2021-09 Yes [id number] Inject [facility] (OZEMPIC) 0-13 0.25 mg ity of 0.25 mg or 00:00: under the [place] 0.5 mg(2 00 skin Medical mg/1.5 mL) weekly. Branch PnIj topiramate 2021-09 Yes [id number] 75mg Take 3 [facility] 25 mg 0-13 tablets by ity of tablet 00:00: mouth in [place] 00 the Medical morning Branch and 3 tablets in the evening. busPIRone 2021-09 Yes [id number] 20mg Take 2 [facility] [place] 10 mg 0-13 tablets by ity of tablet 00:00: mouth in [place] 00 the Medical morning Branch and 2 tablets in the evening. losartan 50 2021-09 Yes [id number] 50mg Take 1 [facility] mg tablet 0-13 tablet by ity o f 00:00: mouth in [place] 00 the Medical morning Branch and 1 tablet in the evening. mirabegron 2021-09 Yes [id number] 50mg Take 1 [facility] (MYRBETRIQ) 0-13 tablet by ity of 50 mg 00:00: mouth in [place] tablet 00 the Medical morning. Branch semaglutide 2021-09 Yes [id number] Inject [facility] (OZEMPIC) 0-13 0.25 mg ity of 0.25 mg or 00:00: under the [place] 0.5 mg(2 skin Medical mg/1.5 mL) weekly. Branch PnIj topiramate 2021-09 Yes [id number] 75mg Take 3 [facility] 25 mg 0-13 tablets by ity of tablet 00:00: mouth in [place] 00 the Medical morning Branch and 3 tablets in the evening. busPIRone 2021-09 Yes [id number] 20mg Take 2 [facility] [place] 10 mg 0-13 tablets by ity of tablet 00:00: mouth in [place] 00 the Medical morning Branch and 2 tablets in the evening. losartan 50 2021-09 Yes [id number] 50mg Take 1 [facility] mg tablet 0-13 tablet by ity o f 00:00: mouth in [place] 00 the Medical morning Branch and 1 tablet in the evening. mirabegron 2021-09 Yes [id number] 50mg Take 1 [facility] (MYRBETRIQ) 0-13 tablet by ity of 50 mg 00:00: mouth in [place] tablet 00 the Medical morning. Branch semaglutide 2021-09 Yes [id number] Inject [facility] (OZEMPIC) 0-13 0.25 mg ity of 0.25 mg or 00:00: under the [place] 0.5 mg(2 00 skin Medical mg/1.5 mL) weekly. Branch PnIj topiramate 2021-09 Yes [id number] 75mg Take 3 [facility] 25 mg 0-13 tablets by ity of tablet 00:00: mouth in [place] 00 the Medical morning Branch and 3 tablets in the evening. busPIRone 2021-09 Yes [id number] 20mg Take 2 [facility] 10 mg 0-13 tablets by ity of tablet 00:00: mouth in [place] 00 the Medical morning Branch and 2 tablets in the evening. losartan 50 2021-09 Yes [id number] 50mg Take 1 [facility] mg tablet 0-13 tablet by ity o f 00:00: mouth in [place] 00 the Medical morning Branch and 1 tablet in the evening. mirabegron 2021-09 Yes [id number] 50mg Take 1 [facility] (MYRBETRIQ) 0-13 tablet by ity of 50 mg 00:00: mouth in [place] tablet 00 the Medical morning. Branch semaglutide 2021-09 Yes [id number] Inject [facility] (OZEMPIC) 0-13 0.25 mg ity of 0.25 mg or 00:00: under the [place] 0.5 mg(2 00 skin Medical mg/1.5 mL) weekly. Branch PnIj topiramate 2021-09 Yes [id number] 75mg Take 3 [facility] 25 mg 0-13 tablets by ity of tablet 00:00: mouth in [place] 00 the Medical morning Branch and 3 tablets in the evening. busPIRone 2021-09 Yes [id number] 20mg Take 2 [facility] [place] 10 mg 0-13 tablets by ity of tablet 00:00: mouth in [place] 00 the Medical morning Branch and 2 tablets in the evening. losartan 50 2021-09 Yes [id number] 50mg Take 1 [facility] mg tablet 0-13 tablet by ity o f 00:00: mouth in [place] 00 the Medical morning Branch and 1 tablet in the evening. mirabegron 2021-09 Yes [id number] 50mg Take 1 [facility] (MYRBETRIQ) 0-13 tablet by ity of 50 mg 00:00: mouth in [place] tablet 00 the Medical morning. Branch semaglutide 2021-09 Yes [id number] Inject [facility] (OZEMPIC) 0-13 0.25 mg ity of 0.25 mg or 00:00: under the [place] 0.5 mg(2 00 skin Medical mg/1.5 mL) weekly. Branch PnIj topiramate 2021-09 Yes [id number] 75mg Take 3 [facility] 25 mg 0-13 tablets by ity of tablet 00:00: mouth in [place] 00 the Medical morning Branch and 3 tablets in the evening. busPIRone 2021-09 Yes [id number] 20mg Take 2 [facility] [place] 10 mg 0-13 tablets by ity of tablet 00:00: mouth in [place] 00 the Medical morning Branch and 2 tablets in the evening. losartan 50 2021-09 Yes [id number] 50mg Take 1 [facility] mg tablet 0-13 tablet by ity o f 00:00: mouth in [place] 00 the Medical morning Branch and 1 tablet in the evening. mirabegron 2021-09 Yes [id number] 50mg Take 1 [facility] (MYRBETRIQ) 0-13 tablet by ity of 50 mg 00:00: mouth in [place] tablet 00 the Medical morning. Branch semaglutide 2021-09 Yes [id number] Inject [facility] (OZEMPIC) 0-13 0.25 mg ity of 0.25 mg or 00:00: under the [place] 0.5 mg(2 00 skin Medical mg/1.5 mL) weekly. Branch PnIj topiramate 2021-09 Yes [id number] 75mg Take 3 [facility] 25 mg 0-13 tablets by ity of tablet 00:00: mouth in [place] 00 the Medical morning Branch and 3 tablets in the evening. busPIRone 2021-09 Yes [id number] 20mg Take 2 [facility] [place] 10 mg 0-13 tablets by ity of tablet 00:00: mouth in [place] 00 the Medical morning Branch and 2 tablets in the evening. losartan 50 2021-09 Yes [id number] 50mg Take 1 [facility] mg tablet 0-13 tablet by ity o f 00:00: mouth in [place] 00 the Medical morning Branch and 1 tablet in the evening. mirabegron 2021-09 Yes [id number] 50mg Take 1 [facility] (MYRBETRIQ) 0-13 tablet by ity of 50 mg 00:00: mouth in [place] tablet 00 the Medical morning. Branch semaglutide 2021-09 Yes [id number] Inject [facility] (OZEMPIC) 0-13 0.25 mg ity of 0.25 mg or 00:00: under the [place] 0.5 mg(2 00 skin Medical mg/1.5 mL) weekly. Branch PnIj topiramate 2021-09 Yes [id number] 75mg Take 3 [facility] 25 mg 0-13 tablets by ity of tablet 00:00: mouth in [place] 00 the Medical morning Branch and 3 tablets in the evening. busPIRone 2021-09 Yes [id number] 20mg Take 2 [facility] [place] 10 mg 0-13 tablets by ity of tablet 00:00: mouth in [place] 00 the Medical morning Branch and 2 tablets in the evening. losartan 50 2021-09 Yes [id number] 50mg Take 1 [facility] mg tablet 0-13 tablet by ity o f 00:00: mouth in [place] 00 the Medical morning Branch and 1 tablet in the evening. mirabegron 2021-09 Yes [id number] 50mg Take 1 [facility] (MYRBETRIQ) 0-13 tablet by ity of 50 mg 00:00: mouth in [place] tablet 00 the Medical morning. Branch semaglutide 2021-09 Yes [id number] Inject [facility] (OZEMPIC) 0-13 0.25 mg ity of 0.25 mg or 00:00: under the [place] 0.5 mg(2 00 skin Medical mg/1.5 mL) weekly. Branch PnIj topiramate 2021-09 Yes [id number] 75mg Take 3 [facility] 25 mg 0-13 tablets by ity of tablet 00:00: mouth in [place] 00 the Medical morning Branch and 3 tablets in the evening. busPIRone 2021-09 Yes [id number] 20mg Take 2 [facility] [place] 10 mg 0-13 tablets by ity of tablet 00:00: mouth in [place] 00 the Medical morning Branch and 2 tablets in the evening. losartan 50 2021-09 Yes [id number] 50mg Take 1 [facility] mg tablet 0-13 tablet by ity o f 00:00: mouth in [place] 00 the Medical morning Branch and 1 tablet in the evening. mirabegron 2021-09 Yes [id number] 50mg Take 1 [facility] (MYRBETRIQ) 0-13 tablet by ity of 50 mg 00:00: mouth in [place] tablet 00 the Medical morning. Branch semaglutide 2021-09 Yes [id number] Inject [facility] (OZEMPIC) 0-13 0.25 mg ity of 0.25 mg or 00:00: under the [place] 0.5 mg(2 00 skin Medical mg/1.5 mL) weekly. Branch PnIj topiramate 2021-09 Yes [id number] 75mg Take 3 [facility] 25 mg 0-13 tablets by ity of tablet 00:00: mouth in [place] 00 the Medical morning Branch and 3 tablets in the evening. busPIRone 2021-09 Yes [id number] 20mg Take 2 [facility] [place] 10 mg 0-13 tablets by ity of tablet 00:00: mouth in [place] 00 the Medical morning Branch and 2 tablets in the evening. losartan 50 2021-09 Yes [id number] 50mg Take 1 [facility] mg tablet 0-13 tablet by ity o f 00:00: mouth in [place] 00 the Medical morning Branch and 1 tablet in the evening. mirabegron 2021-09 Yes [id number] 50mg Take 1 [facility] (MYRBETRIQ) 0-13 tablet by ity of 50 mg 00:00: mouth in [place] tablet 00 the Medical morning. Branch semaglutide 2021-09 Yes [id number] Inject [facility] (OZEMPIC) 0-13 0.25 mg ity of 0.25 mg or 00:00: under the [place] 0.5 mg(2 00 skin Medical mg/1.5 mL) weekly. Branch PnIj topiramate 2021-09 Yes [id number] 75mg Take 3 [facility] 25 mg 0-13 tablets by ity of tablet 00:00: mouth in [place] 00 the Medical morning Branch and 3 tablets in the evening. busPIRone 2021-09 Yes [id number] 20mg Take 2 [facility] [place] 10 mg 0-13 tablets by ity of tablet 00:00: mouth in [place] 00 the Medical morning Branch and 2 tablets in the evening. losartan 50 2021-09 Yes [id number] 50mg Take 1 [facility] mg tablet 0-13 tablet by ity o f 00:00: mouth in [place] 00 the Medical morning Branch and 1 tablet in the evening. mirabegron 2021-09 Yes [id number] 50mg Take 1 [facility] (MYRBETRIQ) 0-13 tablet by ity of 50 mg 00:00: mouth in [place] tablet 00 the Medical morning. Branch semaglutide 2021-09 Yes [id number] Inject [facility] (OZEMPIC) 0-13 0.25 mg ity of 0.25 mg or 00:00: under the [place] 0.5 mg(2 00 skin Medical mg/1.5 mL) weekly. Branch PnIj topiramate 2021-09 Yes [id number] 75mg Take 3 [facility] 25 mg 0-13 tablets by ity of tablet 00:00: mouth in [place] 00 the Medical morning Branch and 3 tablets in the evening. busPIRone 2021-09 Yes [id number] 20mg Take 2 [facility] [place] 10 mg 0-13 tablets by ity of tablet 00:00: mouth in [place] 00 the Medical morning Branch and 2 tablets in the evening. losartan 50 2021-09 Yes [id number] 50mg Take 1 [facility] mg tablet 0-13 tablet by ity o f 00:00: mouth in [place] 00 the Medical morning Branch and 1 tablet in the evening. mirabegron 2021-09 Yes [id number] 50mg Take 1 [facility] (MYRBETRIQ) 0-13 tablet by ity of 50 mg 00:00: mouth in [place] tablet 00 the Medical morning. Branch semaglutide 2021-09 Yes [id number] Inject [facility] (OZEMPIC) 0-13 0.25 mg ity of 0.25 mg or 00:00: under the [place] 0.5 mg(2 00 skin Medical mg/1.5 mL) weekly. Branch PnIj topiramate 2021-09 Yes [id number] 75mg Take 3 [facility] 25 mg 0-13 tablets by ity of tablet 00:00: mouth in [place] 00 the Medical morning Branch and 3 tablets in the evening. diltiazem 2021-09- No [id number] 120mg Take 1 [facility] 120 mg 24 07-27 capsule by ity of hr capsule 00:00: 00:00 mouth in [place] 00 :00 the Medical morning Branch and 1 capsule in the evening. levothyroxi 2021-09- No [id number] 50ug Take 1 [facility] ne 50 mcg 0-07-27 tablet by ity of tablet 00:00: 00:00 mouth [place] 00 :00 every Medical morning. Branch metformin 2021-09- No [id number] 500mg Take 1 [facility] ER 500 mg 0-07-27 tablet by ity of 24 hr 00:00: 00:00 mouth [place] tablet 00 :00 daily with Medical breakfast. Branch STOP REGULAR METFORMIN. pantoprazol 2021-09- No [id number] 40mg Take 1 [facility] e 40 mg EC 07-27 tablet by ity of tablet 00:00: 00:00 mouth in [place] 00 :00 the Medical morning. Branch pregabalin 2021-09- No [id number] 150mg Take 1 [facility] 150 mg 07-27 capsule by ity of capsule 00:00: 00:00 mouth in [place] 00 :00 the Medical morning Branch and 1 capsule at noon and 1 capsule in the evening. rosuvastati 2021-09- No [id number] 10mg Take 1 [facility] n 10 mg 07-27 tablet by ity of tablet 00:00: 00:00 mouth at [place] 00 :00 bedtime. Medical Branch SUMAtriptan 2021-09- No [id number] 50mg Take 1 [facility] 50 mg 07-27 tablet by ity of tablet 00:00: 00:00 mouth as [place] 00 :00 needed for Medical Migraine. Branch diltiazem 2021-09- No [id number] 120mg Take 1 [facility] 120 mg 24 07-27 capsule by ity of hr capsule 00:00: 00:00 mouth in [facility] 00 :00 the Medical morning Branch and 1 capsule in the evening. levothyroxi 2021-09- No [id number] 50ug Take 1 [facility] ne 50 mcg 07-27 tablet by ity of tablet 00:00: 00:00 mouth [place] 00 :00 every Medical morning. Branch metformin 2021-09- No [id number] 500mg Take 1 [facility] ER 500 mg 07-27 tablet by ity of 24 hr 00:00: 00:00 mouth [place] tablet 00 :00 daily with Medical breakfast. Branch STOP REGULAR METFORMIN. pantoprazol 2021-09- No [id number] 40mg Take 1 [facility] e 40 mg EC 07-27 tablet by ity of tablet 00:00: 00:00 mouth in [place] 00 :00 the Medical morning. Branch pregabalin 2021-09- No [id number] 150mg Take 1 [facility] 150 mg 07-27 capsule by ity of capsule 00:00: 00:00 mouth in [place] 00 :00 the Medical morning Branch and 1 capsule at noon and 1 capsule in the evening. rosuvastati 2021-09- No [id number] 10mg Take 1 [facility] n 10 mg 0-13 - tablet by ity of tablet 00:00: 00:00 mouth at [place] 00 :00 bedtime. Medical Branch SUMAtriptan 2021-09- No [id number] 50mg Take 1 [facility] 50 mg 0-13 - tablet by ity of tablet 00:00: 00:00 mouth as [place] 00 :00 needed for Medical Migraine. Branch SUMAtriptan Yes [id number] 50mg Take 1 [facility] 50 mg 9-30 tablet by ity of tablet 00:00: mouth as [place] 00 needed for Medical Migraine. Branch SUMAtriptan Yes [id number] 50mg Take 1 [facility] 50 mg 9-30 tablet by ity of tablet 00:00: mouth as [place] 00 needed for Medical Migraine. Branch SUMAtriptan Yes [id number] 50mg Take 1 [facility] 50 mg 9-30 tablet by ity of tablet 00:00: mouth as [place] 00 needed for Medical Migraine. Branch SUMAtriptan Yes [id number] 50mg Take 1 [facility] 50 mg 9-30 tablet by ity of tablet 00:00: mouth as [place] 00 needed for Medical Migraine. Branch SUMAtriptan Yes [id number] 50mg Take 1 [facility] 50 mg 9-30 tablet by ity of tablet 00:00: mouth as [place] 00 needed for Medical Migraine. Branch SUMAtriptan 2021- No [id number] 50mg Take 1 [facility] 50 mg 9-30 10-13 tablet by ity of tablet 00:00: 00:00 mouth as [place] 00 :00 needed for Medical Migraine. Branch FOLIC ACID Yes Take by [facility] ers ORAL 06-17 mouth ity of 10:41: daily. [place] 15 Medical Branch MULTIVIT Yes Take by [facility] [place] [facility] s &MINERALS/F 06-17 mouth. ity of ERROUS FUM 10:41: [place] (MULTI 15 Medical VITAMIN Branch ORAL) METHYLCELLU Yes [facility] [place] [facility] s LOSE (FIBER 06-17 ity of THERAPY 10:41: [facility]) 15 Medical Branch DOCUSATE Yes Take by [facility] SODIUM - mouth. ity of (COLACE 10:41: [place] ORAL) 15 Medical Branch vitamin C Yes 1000mg Take 1,000 [facility] with derrell 9-22 mg by ity of hips 1,000 10:41: mouth [place] mg tablet 15 daily. Medical Branch cholecalcif Yes 1000U Take 1,000 [facility] edmar, 9-22 Units by ity of vitamin D3, 10:41: mouth [place] 25 mcg 15 daily. Medical (1,000 Branch unit) tablet CRANBERRY Yes Take by [facility] [place] rs FRUIT 06-17 mouth ity of EXTRACT 10:41: daily. [place] (CRANBERRY 15 Medical ORAL) Branch CALCIUM Yes Take by [facility] ORAL 06-17 mouth ity of 10:41: daily. [place] 15 Medical Branch DOCOSAHEXAN Yes 1000mg Take 1,000 [facility] OIC 9-22 mg by ity of ACID/EPA 10:41: mouth [place] (FISH OIL 15 daily. Medical ORAL) Branch BIOTIN ORAL Yes Take by [facility] vers 06-17 mouth. ity of 10:41: [place] [address] Medical Branch FOLIC ACID Yes Take by [facility] ers ORAL 06-17 mouth ity of 10:41: daily. [place] [address] Medical Branch MULTIVIT Yes Take by [facility] &MINERALS/F - mouth. ity of ERROUS FUM 10:41: [place] (MULTI 15 Medical VITAMIN Branch ORAL) METHYLCELLU Yes [facility] LOSE (FIBER - ity of THERAPY 10:41: [facility]) 15 Medical Branch DOCUSATE Yes Take by [facility] SODIUM - mouth. ity of (COLACE 10:41: [place] ORAL) 15 Medical Branch vitamin C Yes [...] - mouth ity of EXTRACT 10:41: daily. [place] (CRANBERRY 15 Medical ORAL) Branch CALCIUM Yes Take by [facility] ORAL - mouth ity of 10:41: daily. [place] 15 Medical Branch DOCOSAHEXAN Yes 1000mg Take 1,000 [facility] OIC 9-22 mg by ity of ACID/EPA 10:41: mouth [place] (FISH OIL 15 daily. Medical ORAL) Branch BIOTIN ORAL Yes Take by [facility] vers 06-17 mouth. ity of 10:41: [place] [address] Medical Branch FOLIC ACID Yes Take by [facility] ers ORAL 06-17 mouth ity of 10:41: daily. [place] [address] Medical Branch MULTIVIT Yes Take by [facility] s &MINERALS/F 06-17 mouth. ity of ERROUS FUM 10:41: [place] (MULTI 15 Medical VITAMIN Branch ORAL) METHYLCELLU Yes Univer s LOSE (FIBER 06-17 ity of THERAPY 10:41: [place] MISC) Medical Branch DOCUSATE Yes Take by [facility] s SODIUM 06-17 mouth. ity of (COLACE 10:41: [place] ORAL) 15 Medical Branch vitamin C Yes 1000mg Take 1,000 [facility] with derrell 9-22 mg by ity of hips 1,000 10:41: mouth [place] mg tablet 15 daily. Medical Branch cholecalcif Yes 1000U Take 1,000 [facility] edmar, 9-22 Units by ity of vitamin D3, 10:41: mouth [place] 25 mcg 15 daily. Medical (1,000 Branch unit) tablet CRANBERRY Yes Take by [facility] FRUIT - mouth ity of EXTRACT 10:41: daily. [place] (CRANBERRY 15 Medical ORAL) Branch CALCIUM Yes Take by [facility] ORAL - mouth ity of 10:41: daily. [place] 15 Medical Branch DOCOSAHEXAN Yes 1000mg Take 1,000 [facility] OIC 9-22 mg by ity of ACID/EPA 10:41: mouth [place] (FISH OIL 15 daily. Medical ORAL) Branch BIOTIN ORAL Yes Take by [facility] vers - mouth. ity of 10:41: [place] [address] Medical Branch FOLIC ACID Yes Take by [facility] ers ORAL -22 mouth ity of 10:41: daily. [place] 15 Medical Branch MULTIVIT Yes Take by Univer s &MINERALS/F -22 mouth. ity of ERROUS FUM 10:41: [place] (MULTI 15 Medical VITAMIN Branch ORAL) METHYLCELLU Yes Univer s LOSE (FIBER 9-22 ity of THERAPY 10:41: [facility]) 15 Medical Branch DOCUSATE Yes [...] Branch unit) tablet CRANBERRY Yes Take by [facility] FRUIT - mouth ity of EXTRACT 10:41: daily. [place] (CRANBERRY 15 Medical ORAL) Branch CALCIUM Yes Take by [facility] ORAL - mouth ity of 10:41: daily. [place] 15 Medical Branch DOCOSAHEXAN Yes 1000mg Take 1,000 [facility] OIC 9-22 mg by ity of ACID/EPA 10:41: mouth [place] (FISH OIL 15 daily. Medical ORAL) Branch BIOTIN ORAL Yes Take by [facility] vers - mouth. ity of 10:41: [place] [address] Medical Branch FOLIC ACID Yes Take by [facility] ers ORAL 9-22 mouth ity of 10:41: daily. [place] 15 Medical Branch MULTIVIT Yes Take by Univer s &MINERALS/F 9-22 mouth. ity of ERROUS FUM 10:41: [place] (MULTI 15 Medical VITAMIN Branch ORAL) METHYLCELLU 0 Yes Univer s LOSE (FIBER 9-22 ity of THERAPY 10:41: [facility]) Medical Branch DOCUSATE Yes Take by [facility] SODIUM 9-22 mouth. ity of (COLACE [...] - mouth ity of EXTRACT 10:41: daily. [place] (CRANBERRY 15 Medical ORAL) Branch CALCIUM Yes Take by [facility] ORAL 06-17 mouth ity of 10:41: daily. [place] 15 Medical Branch DOCOSAHEXAN Yes 1000mg Take 1,000 [facility] OIC 9-22 mg by ity of ACID/EPA 10:41: mouth [place] (FISH OIL 15 daily. Medical ORAL) Branch BIOTIN ORAL Yes Take by [facility] vers 06-17 mouth. ity of 10:41: [place] 15 Medical Branch FOLIC ACID Yes Take by [facility] ers ORAL 06-17 mouth ity of 10:41: daily. [place] [address] Medical Branch MULTIVIT Yes Take by Univer s &MINERALS/F 06-17 mouth. ity of ERROUS FUM 10:41: [place] (MULTI 15 Medical VITAMIN Branch ORAL) METHYLCELLU Yes Univer s LOSE (FIBER 06-17 ity of THERAPY 10:41: [facility]) Medical Branch DOCUSATE Yes Take [...] - mouth ity of EXTRACT 10:41: daily. [place] (CRANBERRY 15 Medical ORAL) Branch CALCIUM Yes Take by [facility] ORAL - mouth ity of 10:41: daily. [place] 15 Medical Branch DOCOSAHEXAN Yes 1000mg Take 1,000 [facility] OIC 9-22 mg by ity of ACID/EPA 10:41: mouth [place] (FISH OIL 15 daily. Medical ORAL) Branch BIOTIN ORAL Yes Take by [facility] vers - mouth. ity of 10:41: [place] 15 Medical Branch FOLIC ACID Yes Take by [facility] ers ORAL - mouth ity of 10:41: daily. [place] 15 Medical Branch MULTIVIT Yes Take by [facility]iver s &MINERALS/F - mouth. ity of ERROUS FUM 10:41: [place] (MULTI 15 Medical VITAMIN Branch ORAL) METHYLCELLU Yes [facility] LOSE (FIBER - ity of THERAPY 10:41: [place] MIS) 15 Medical Branch DOCUSATE Yes Take [...] 06-17 mouth ity of EXTRACT 10:41: daily. [place] (CRANBERRY 15 Medical ORAL) Branch CALCIUM Yes Take by [facility] ORAL - mouth ity of 10:41: daily. [place] Medical Branch DOCOSAHEXAN Yes 1000mg Take 1,000 [facility] OIC 9-22 mg by ity of ACID/EPA 10:41: mouth [place] (FISH OIL 15 daily. Medical ORAL) Branch BIOTIN ORAL Yes Take by [facility] vers - mouth. ity of 10:41: [place] [address] Medical Branch FOLIC ACID Yes Take by [facility] ers ORAL - mouth ity of 10:41: daily. [place] [address] Medical Branch MULTIVIT Yes Take by Univer s &MINERALS/F - mouth. ity of ERROUS FUM 10:41: [place] (MULTI 15 Medical VITAMIN Branch ORAL) METHYLCELLU Yes Univer s LOSE (FIBER 9-22 ity of THERAPY 10:41: [facility]) 15 Medical Branch DOCUSATE Yes Take by Univer s SODIUM -22 mouth. ity of (COLACE 10:41: [place] ORAL) 15 Medical Branch vitamin C Yes 1000mg Take 1,000 [facility] with derrell 9-22 mg by ity of hips 1,000 10:41: mouth [place] mg tablet 15 daily. Medical Branch cholecalcif Yes 1000U Take 1,000 [facility] edmar, 9-22 Units by ity of vitamin D3, 10:41: mouth [place] 25 mcg 15 daily. Medical (1,000 Branch unit) tablet CRANBERRY Yes Take by [facility] [place] rs FRUIT 06-17 mouth ity of EXTRACT 10:41: daily. [place] (CRANBERRY 15 Medical ORAL) Branch CALCIUM Yes Take by [facility] ORAL 06-17 mouth ity of 10:41: daily. [place] [address] Medical Branch DOCOSAHEXAN Yes 1000mg Take 1,000 [facility] OIC 9-22 mg by ity of ACID/EPA 10:41: mouth [place] (FISH OIL 15 daily. Medical ORAL) Branch BIOTIN ORAL Yes Take by [facility] vers - mouth. ity of 10:41: [place] [address] Medical Branch FOLIC ACID Yes Take by [facility] ers ORAL - mouth ity of 10:41: daily. [place] [address] Medical Branch MULTIVIT Yes Take by [facility] &MINERALS/F - mouth. ity of ERROUS FUM 10:41: [place] (MULTI 15 Medical VITAMIN Branch ORAL) METHYLCELLU Yes Univer s LOSE (FIBER 9-22 ity of THERAPY 10:41: [facility]) 15 Medical Branch DOCUSATE Yes Take by [facility] SODIUM 9-22 mouth. ity of (COLACE 10:41: [place] ORAL) 15 Medical Branch vitamin C Yes [...] - mouth ity of EXTRACT 10:41: daily. [place] (CRANBERRY 15 Medical ORAL) Branch CALCIUM Yes Take by [facility] ORAL - mouth ity of 10:41: daily. [place] [address] Medical Branch DOCOSAHEXAN Yes 1000mg Take 1,000 [facility] OIC 9-22 mg by ity of ACID/EPA 10:41: mouth [place] (FISH OIL 15 daily. Medical ORAL) Branch BIOTIN ORAL Yes Take by [facility] vers 06-17 mouth. ity of 10:41: [place] [address] Medical Branch FOLIC ACID Yes Take by [facility] ers ORAL 06-17 mouth ity of 10:41: daily. [place] [address] Medical Branch MULTIVIT Yes Take by Univer s &MINERALS/F 06-17 mouth. ity of ERROUS FUM 10:41: [place] (MULTI 15 Medical VITAMIN Branch ORAL) METHYLCELLU Yes Univer s LOSE (FIBER 06-17 ity of THERAPY 10:41: [place] MISC) Medical Branch DOCUSATE Yes Take by [...] - mouth ity of EXTRACT 10:41: daily. [place] (CRANBERRY 15 Medical ORAL) Branch CALCIUM Yes Take by [facility] ORAL - mouth ity of 10:41: daily. [place] [address] Medical Branch DOCOSAHEXAN Yes 1000mg Take 1,000 [facility] OIC 9-22 mg by ity of ACID/EPA 10:41: mouth [place] (FISH OIL 15 daily. Medical ORAL) Branch BIOTIN ORAL Yes Take by [facility] vers 9-22 mouth. ity of 10:41: [place] 15 Medical Branch FOLIC ACID Yes Take by [facility] ers ORAL 9- mouth ity of 10:41: daily. [place] 15 Medical Branch MULTIVIT Yes Take by [facility]iver s &MINERALS/F - mouth. ity of ERROUS FUM 10:41: [place] (MULTI 15 Medical VITAMIN Branch ORAL) METHYLCELLU Yes Univer s LOSE (FIBER 9-22 ity of THERAPY 10:41: [facility]) 15 Medical Branch DOCUSATE Yes [...] - mouth ity of EXTRACT 10:41: daily. [place] (CRANBERRY 15 Medical ORAL) Branch CALCIUM Yes Take by [facility] ORAL - mouth ity of 10:41: daily. [place] 15 Medical Branch DOCOSAHEXAN Yes 1000mg Take 1,000 [facility] OIC 9-22 mg by ity of ACID/EPA 10:41: mouth [place] (FISH OIL 15 daily. Medical ORAL) Branch BIOTIN ORAL Yes Take by [facility] vers -22 mouth. ity of 10:41: [place] 15 Medical Branch FOLIC ACID Yes Take by [facility] ers ORAL 9-22 mouth ity of 10:41: daily. [place] 15 Medical Branch MULTIVIT Yes Take by [facility] s &MINERALS/F -22 mouth. ity of ERROUS FUM 10:41: [place] (MULTI 15 Medical VITAMIN Branch ORAL) METHYLCELLU Yes Univer s LOSE (FIBER 9-22 ity of THERAPY 10:41: [facility]) 15 Medical Branch DOCUSATE Yes [...] - mouth ity of EXTRACT 10:41: daily. [place] (CRANBERRY 15 Medical ORAL) Branch CALCIUM Yes Take by [facility] ORAL - mouth ity of 10:41: daily. [place] 15 Medical Branch DOCOSAHEXAN Yes 1000mg Take 1,000 [facility] OIC 9-22 mg by ity of ACID/EPA 10:41: mouth [place] (FISH OIL 15 daily. Medical ORAL) Branch BIOTIN ORAL Yes Take by [facility] vers 06-17 mouth. ity of 10:41: [place] [address] Medical Branch FOLIC ACID Yes Take by [facility] ers ORAL - mouth ity of 10:41: daily. [place] 15 Medical Branch MULTIVIT Yes Take by [facility] s &MINERALS/F - mouth. ity of ERROUS FUM 10:41: [place] (MULTI 15 Medical VITAMIN Branch ORAL) METHYLCELLU Yes Univer s LOSE (FIBER - ity of THERAPY 10:41: [facility]) 15 Medical Branch DOCUSATE Yes [...] 9-22 mouth ity of EXTRACT 10:41: daily. [place] (CRANBERRY 15 Medical ORAL) Branch CALCIUM Yes Take by [facility] ORAL 9-22 mouth ity of 10:41: daily. [place] 15 Medical Branch DOCOSAHEXAN Yes 1000mg Take 1,000 [facility] OIC 9-22 mg by ity of ACID/EPA 10:41: mouth [place] (FISH OIL 15 daily. Medical ORAL) Branch BIOTIN ORAL Yes Take by Uni vers - mouth. ity of 10:41: [place] [address] Medical Branch FOLIC ACID Yes Take by [facility] ers ORAL - mouth ity of 10:41: daily. [place] [address] Medical Branch MULTIVIT Yes Take by Un[facility] s &MINERALS/F 06-17 mouth. ity of ERROUS FUM 10:41: [place] (MULTI 15 Medical VITAMIN Branch ORAL) METHYLCELLU Yes Univer s LOSE (FIBER 06-17 ity of THERAPY 10:41: [place] MISC) Medical Branch DOCUSATE Yes Take by [...] 06-17 mouth ity of EXTRACT 10:41: daily. [place] (CRANBERRY 15 Medical ORAL) Branch CALCIUM Yes Take by [facility] ORAL -22 mouth ity of 10:41: daily. [place] Medical Branch DOCOSAHEXAN Yes 1000mg Take 1,000 [facility] OIC 9-22 mg by ity of ACID/EPA 10:41: mouth [place] (FISH OIL 15 daily. Medical ORAL) Branch BIOTIN ORAL Yes Take by [facility] vers -22 mouth. ity of 10:41: [place] [address] Medical Branch FOLIC ACID Yes Take by [facility] ers ORAL - mouth ity of 10:41: daily. [place] [address] Medical Branch MULTIVIT Yes Take by [facility] s &MINERALS/F - mouth. ity of ERROUS FUM 10:41: [place] (MULTI 15 Medical VITAMIN Branch ORAL) METHYLCELLU 0 Yes Univer s LOSE (FIBER - ity of THERAPY 10:41: [facility]) 15 Medical Branch vitamin C [...] - mouth ity of EXTRACT 10:41: daily. [place] (CRANBERRY 15 Medical ORAL) Branch CALCIUM Yes Take by [facility] ORAL - mouth ity of 10:41: daily. [place] [address] Medical Branch DOCOSAHEXAN Yes 1000mg Take 1,000 [facility] OIC 9-22 mg by ity of ACID/EPA 10:41: mouth [place] (FISH OIL 15 daily. Medical ORAL) Branch BIOTIN ORAL Yes Take by [facility] vers - mouth. ity of 10:41: [place] [address] Medical Branch FOLIC ACID Yes Take by [facility] ers ORAL - mouth ity of 10:41: daily. [place] [address] Medical Branch MULTIVIT Yes Take by Univer [facility] &MINERALS/F - mouth. ity of ERROUS FUM 10:41: [place] (MULTI 15 Medical VITAMIN Branch ORAL) METHYLCELLU 0 Yes Univer s LOSE (FIBER 9-22 ity of THERAPY 10:41: [facility]) Medical Branch vitamin C Yes 1000mg [...] - mouth ity of EXTRACT 10:41: daily. [place] (CRANBERRY 15 Medical ORAL) Branch CALCIUM Yes Take by [facility] ORAL 9- mouth ity of 10:41: daily. [place] [address] Medical Branch DOCOSAHEXAN Yes 1000mg Take 1,000 [facility] OIC 9-22 mg by ity of ACID/EPA 10:41: mouth [place] (FISH OIL 15 daily. Medical ORAL) Branch BIOTIN ORAL Yes Take by Uni vers 06-17 mouth. ity of 10:41: [place] [address] Medical Branch FOLIC ACID Yes Take by Univ ers ORAL - mouth ity of 10:41: daily. [place] [address] Medical Branch MULTIVIT Yes Take by [facility]iver s &MINERALS/F 06-17 mouth. ity of ERROUS FUM 10:41: [place] (MULTI 15 Medical VITAMIN Branch ORAL) METHYLCELLU Yes [facility] (FIB[facility] 06-17 ity of THERAPY 10:41: [facility]) Medical Branch vitamin C Yes 1000mg [...] - mouth ity of EXTRACT 10:41: daily. [place] (CRANBERRY 15 Medical ORAL) Branch CALCIUM Yes Take by Univers ORAL 9- mouth ity of 10:41: daily. [place] [address] Medical Branch DOCOSAHEXAN Yes 1000mg Take 1,000 [facility] OIC 9-22 mg by ity of ACID/EPA 10:41: mouth [place] (FISH OIL 15 daily. Medical ORAL) Branch BIOTIN ORAL Yes Take by Uni vers 06-17 mouth. ity of 10:41: [place] [address] Medical Branch FOLIC ACID Yes Take by Univ ers ORAL - mouth ity of 10:41: daily. [place] [address] Medical Branch MULTIVIT Yes Take by Univer s &MINERALS/F 06-17 mouth. ity of ERROUS FUM 10:41: [place] (MULTI 15 Medical VITAMIN Branch ORAL) METHYLCELLU 2021-0 Yes Univer s LOSE (FIBER 9- ity of THERAPY 10:41: [facility]) 15 Medical Branch vitamin C 0 Yes 1000mg Take 1,000 Univers with derrell 9-22 mg by ity of hips 1,000 10:41: mouth [place] mg tablet 15 daily. Medical Branch cholecalcif 0 Yes 1000U Take 1,000 Univers edmar, 9-22 Units by ity of vitamin D3, 10:41: mouth [place] 25 mcg 15 daily. Medical (1,000 Branch unit) tablet CRANBERRY 0 Yes Take by Unive rs FRUIT - mouth ity of EXTRACT 10:41: daily. [place] (CRANBERRY 15 Medical ORAL) Branch CALCIUM Yes Take by Univers ORAL - mouth ity of 10:41: daily. [place] 15 Medical Branch DOCOSAHEXAN Yes 1000mg Take 1,000 [facility] OIC 9-22 mg by ity of ACID/EPA 10:41: mouth [place] (FISH OIL 15 daily. Medical ORAL) Branch BIOTIN ORAL Yes Take by Uni vers - mouth. ity of 10:41: [place] [address] Medical Branch FOLIC ACID Yes Take by Univ ers ORAL - mouth ity of 10:41: daily. [place] [address] Medical Branch MULTIVIT Yes Take by Univer s &MINERALS/F - mouth. ity of ERROUS FUM 10:41: [place] (MULTI 15 Medical VITAMIN Branch ORAL) METHYLCELLU 2021-0 Yes Univer s LOSE (FIBER 9-22 ity of THERAPY 10:41: [facility]) Medical Branch vitamin C 0 Yes 1000mg Take 1,000 [facility] with derrell 9-22 mg by ity of hips 1,000 10:41: mouth [place] mg tablet 15 daily. Medical Branch cholecalcif 2021-0 Yes 1000U Take 1,000 [facility] edmar, 9-22 Units by ity of vitamin D3, 10:41: mouth [place] 25 mcg 15 daily. Medical (1,000 Branch unit) tablet CRANBERRY 0 Yes Take by Unive rs FRUIT -22 mouth ity of EXTRACT 10:41: daily. [place] (CRANBERRY 15 Medical ORAL) Branch CALCIUM 2022-0 Yes Take by [facility] ORAL 9-22 mouth ity of 10:41: daily. [place] 15 Medical Branch DOCOSAHEXAN Yes 1000mg Take 1,000 [facility] OIC 9-22 mg by ity of ACID/EPA 10:41: mouth [place] (FISH OIL 15 daily. Medical ORAL) Branch BIOTIN ORAL Yes Take by Uni vers - mouth. ity of 10:41: [place] 15 Medical Branch FOLIC ACID 0 Yes Take by Univ ers ORAL - mouth ity of 10:41: daily. [place] [address] Medical Branch MULTIVIT Yes Take by Univer s &MINERALS/F - mouth. ity of ERROUS FUM 10:41: [place] (MULTI 15 Medical VITAMIN Branch ORAL) METHYLCELLU Yes Univer s LOSE (FIBER 06-17 ity of THERAPY 10:41: [facility]) Medical Branch vitamin C Yes 1000mg [...] - mouth ity of EXTRACT 10:41: daily. [place] (CRANBERRY 15 Medical ORAL) Branch CALCIUM Yes Take by Univers ORAL 9- mouth ity of 10:41: daily. [place] [address] Medical Branch DOCOSAHEXAN Yes 1000mg Take 1,000 [facility] OIC 9-22 mg by ity of ACID/EPA 10:41: mouth [place] (FISH OIL 15 daily. Medical ORAL) Branch BIOTIN ORAL Yes Take by Uni vers 9-22 mouth. ity of 10:41: [place] [address] Medical Branch FOLIC ACID 0 Yes Take by Univ ers ORAL 9- mouth ity of 10:41: daily. [place] [address] Medical Branch MULTIVIT Yes Take by Univer s &MINERALS/F - mouth. ity of ERROUS FUM 10:41: [place] (MULTI 15 Medical VITAMIN Branch ORAL) METHYLCELLU 2022-0 Yes Univer s LOSE (FIBER 9-22 ity of THERAPY 10:41: [facility]) 15 Medical Branch vitamin C [...] 06-17 mouth ity of EXTRACT 10:41: daily. [place] (CRANBERRY 15 Medical ORAL) Branch CALCIUM Yes Take by Univers ORAL 06-17 mouth ity of 10:41: daily. [place] [address] Medical Branch DOCOSAHEXAN Yes 1000mg Take 1,000 [facility] OIC 9-22 mg by ity of ACID/EPA 10:41: mouth [place] (FISH OIL 15 daily. Medical ORAL) Branch BIOTIN ORAL Yes Take by Uni vers 06-17 mouth. ity of 10:41: [place] [address] Medical Branch FOLIC ACID Yes Take by Univ ers ORAL 06-17 mouth ity of 10:41: daily. [place] [address] Medical Branch MULTIVIT Yes Take by Univer s &MINERALS/F 06-17 mouth. ity of ERROUS FUM 10:41: [place] (MULTI 15 Medical VITAMIN Branch ORAL) METHYLCELLU Yes Univer s LOSE (FIBER - ity of THERAPY 10:41: [facility]) 15 Medical Branch vitamin C [...] - mouth ity of EXTRACT 10:41: daily. [place] (CRANBERRY 15 Medical ORAL) Branch CALCIUM Yes Take by Univers ORAL - mouth ity of 10:41: daily. [place] 15 Medical Branch DOCOSAHEXAN Yes 1000mg Take 1,000 [facility] OIC 9-22 mg by ity of ACID/EPA 10:41: mouth [place] (FISH OIL 15 daily. Medical ORAL) Branch BIOTIN ORAL 0 Yes Take by Uni vers 9-22 mouth. ity of 10:41: [place] 15 Medical Branch FOLIC ACID 0 Yes Take by Univ ers ORAL 9-22 mouth ity of 10:41: daily. [place] [address] Medical Branch MULTIVIT 0 Yes Take by Univer s &MINERALS/F - mouth. ity of ERROUS FUM 10:41: [place] (MULTI 15 Medical VITAMIN Branch ORAL) METHYLCELLU 0 Yes Univer s LOSE (FIBER 06-17 ity of THERAPY 10:41: [facility]) Medical Branch vitamin C Yes 1000mg [...] - mouth ity of EXTRACT 10:41: daily. [place] (CRANBERRY 15 Medical ORAL) Branch CALCIUM Yes Take by Univers ORAL 9- mouth ity of 10:41: daily. [place] Medical Branch DOCOSAHEXAN Yes 1000mg Take 1,000 [facility] OIC 9-22 mg by ity of ACID/EPA 10:41: mouth [place] (FISH OIL 15 daily. Medical ORAL) Branch BIOTIN ORAL Yes Take by Uni vers 9-22 mouth. ity of 10:41: [place] [address] Medical Branch FOLIC ACID 0 Yes Take by Univ ers ORAL 9-22 mouth ity of 10:41: daily. [place] [address] Medical Branch MULTIVIT 0 Yes Take by Univer s &MINERALS/F -22 mouth. ity of ERROUS FUM 10:41: [place] (MULTI 15 Medical VITAMIN Branch ORAL) METHYLCELLU 0 Yes Univer s LOSE (FIBER - ity of THERAPY 10:41: [facility] 15 Medical Branch vitamin C Yes 1000mg [...] 06-17 mouth ity of EXTRACT 10:41: daily. [place] (CRANBERRY 15 Medical ORAL) Branch CALCIUM Yes Take by Univers ORAL 06-17 mouth ity of 10:41: daily. [place] [address] Medical Branch DOCOSAHEXAN Yes 1000mg Take 1,000 [facility] OIC 9-22 mg by ity of ACID/EPA 10:41: mouth [place] (FISH OIL 15 daily. Medical ORAL) Branch BIOTIN ORAL Yes Take by Uni vers 06-17 mouth. ity of 10:41: [place] [address] Medical Branch FOLIC ACID Yes Take by Univ ers ORAL 06-17 mouth ity of 10:41: daily. [place] [address] Medical Branch MULTIVIT Yes Take by Univer s &MINERALS/F 06-17 mouth. ity of ERROUS FUM 10:41: [place] (MULTI 15 Medical VITAMIN Branch ORAL) METHYLCELLU Yes Univer s LOSE (FIBER 06-17 ity of THERAPY 10:41: [facility] 15 Medical Branch vitamin C Yes 1000mg [...] - mouth ity of EXTRACT 10:41: daily. [place] (CRANBERRY 15 Medical ORAL) Branch CALCIUM Yes Take by Univers ORAL - mouth ity of 10:41: daily. [place] [address] Medical Branch DOCOSAHEXAN Yes 1000mg Take 1,000 [facility] OIC 9-22 mg by ity of ACID/EPA 10:41: mouth [place] (FISH OIL 15 daily. Medical ORAL) Branch BIOTIN ORAL Yes Take by Uni vers - mouth. ity of 10:41: [place] 15 Medical Branch FOLIC ACID 0 Yes Take by Univ ers ORAL - mouth ity of 10:41: daily. [place] 15 Medical Branch MULTIVIT Yes Take by Univer s &MINERALS/F - mouth. ity of ERROUS FUM 10:41: [place] (MULTI 15 Medical VITAMIN Branch ORAL) METHYLCELLU 0 Yes Univer s LOSE (FIBER 9-22 ity of THERAPY 10:41: [facility]) 15 Medical Branch vitamin C [...] 06-17 mouth ity of EXTRACT 10:41: daily. [place] (CRANBERRY 15 Medical ORAL) Branch CALCIUM Yes Take by Univers ORAL - mouth ity of 10:41: daily. [place] 15 Medical Branch DOCOSAHEXAN Yes 1000mg Take 1,000 [facility] OIC 9-22 mg by ity of ACID/EPA 10:41: mouth [place] (FISH OIL 15 daily. Medical ORAL) Branch BIOTIN ORAL Yes Take by Uni vers - mouth. ity of 10:41: [place] 15 Medical Branch FOLIC ACID 0 Yes Take by Univ ers ORAL - mouth ity of 10:41: daily. [place] 15 Medical Branch MULTIVIT 0 Yes Take by Univer s &MINERALS/F - mouth. ity of ERROUS FUM 10:41: [place] (MULTI 15 Medical VITAMIN Branch ORAL) METHYLCELLU 0 Yes Univer s LOSE (FIBER 9-22 ity of THERAPY 10:41: [facility]) Medical Branch vitamin C 0 Yes [...] 06-17 mouth ity of EXTRACT 10:41: daily. [place] (CRANBERRY 15 Medical ORAL) Branch CALCIUM Yes Take by Univers ORAL 06-17 mouth ity of 10:41: daily. [place] 15 Medical Branch DOCOSAHEXAN Yes 1000mg Take 1,000 [facility] OIC 9-22 mg by ity of ACID/EPA 10:41: mouth [place] (FISH OIL 15 daily. Medical ORAL) Branch BIOTIN ORAL Yes Take by Uni vers 06-17 mouth. ity of 10:41: [place] [address] Medical Branch FOLIC ACID Yes Take by Univ ers ORAL 06-17 mouth ity of 10:41: daily. [place] [address] Medical Branch MULTIVIT Yes Take by [facility] &MINERALS/F 06-17 mouth. ity of ERROUS FUM 10:41: [place] (MULTI 15 Medical VITAMIN Branch ORAL) METHYLCELLU Yes [facility] LOSE (FIBER 06-17 ity of THERAPY 10:41: [facility]) Medical Branch vitamin C Yes 1000mg [...] - mouth ity of EXTRACT 10:41: daily. [place] (CRANBERRY 15 Medical ORAL) Branch CALCIUM Yes Take by Univers ORAL 06-17 mouth ity of 10:41: daily. [place] Medical Branch DOCOSAHEXAN Yes 1000mg Take 1,000 [facility] OIC 9-22 mg by ity of ACID/EPA 10:41: mouth [place] (FISH OIL 15 daily. Medical ORAL) Branch BIOTIN ORAL Yes Take by Uni vers -22 mouth. ity of 10:41: [place] 15 Medical Branch FOLIC ACID 0 Yes Take by Univ ers ORAL - mouth ity of 10:41: daily. [place] 15 Medical Branch MULTIVIT 0 Yes Take by Univer s &MINERALS/F - mouth. ity of ERROUS FUM 10:41: [place] (MULTI 15 Medical VITAMIN Branch ORAL) METHYLCELLU 0 Yes Univer s LOSE (FIBER 9-22 ity of THERAPY 10:41: [facility]) 15 Medical Branch vitamin C [...] 06-17 mouth ity of EXTRACT 10:41: daily. [place] (CRANBERRY 15 Medical ORAL) Branch CALCIUM Yes Take by Univers ORAL 06-17 mouth ity of 10:41: daily. [place] 15 Medical Branch DOCOSAHEXAN Yes 1000mg Take 1,000 [facility] OIC 9-22 mg by ity of ACID/EPA 10:41: mouth [place] (FISH OIL 15 daily. Medical ORAL) Branch BIOTIN ORAL Yes Take by Uni vers - mouth. ity of 10:41: [place] 15 Medical Branch FOLIC ACID 0 Yes Take by Univ ers ORAL - mouth ity of 10:41: daily. [place] 15 Medical Branch MULTIVIT 0 Yes Take by Univer s &MINERALS/F - mouth. ity of ERROUS FUM 10:41: [place] (MULTI 15 Medical VITAMIN Branch ORAL) METHYLCELLU 0 Yes Univer s LOSE (FIBER 9-22 ity of THERAPY 10:41: [facility]) 15 Medical Branch vitamin C [...] 06-17 mouth ity of EXTRACT 10:41: daily. [place] (CRANBERRY 15 Medical ORAL) Branch CALCIUM Yes Take by Univers ORAL 06-17 mouth ity of 10:41: daily. [place] 15 Medical Branch DOCOSAHEXAN Yes 1000mg Take 1,000 [facility] OIC 9-22 mg by ity of ACID/EPA 10:41: mouth [place] (FISH OIL 15 daily. Medical ORAL) Branch BIOTIN ORAL Yes Take by Uni vers 06-17 mouth. ity of 10:41: [place] [address] Medical Branch FOLIC ACID Yes Take by Univ ers ORAL 06-17 mouth ity of 10:41: daily. [place] [address] Medical Branch MULTIVIT Yes Take by Univer s &MINERALS/F 06-17 mouth. ity of ERROUS FUM 10:41: [place] (MULTI 15 Medical VITAMIN Branch ORAL) METHYLCELLU Yes Univer s LOSE (FIBER 06-17 ity of THERAPY 10:41: [facility]) Medical Branch vitamin C Yes 1000mg [...] - mouth ity of EXTRACT 10:41: daily. [place] (CRANBERRY 15 Medical ORAL) Branch CALCIUM Yes Take by Univers ORAL - mouth ity of 10:41: daily. [place] 15 Medical Branch DOCOSAHEXAN Yes 1000mg Take 1,000 [facility] OIC 9-22 mg by ity of ACID/EPA 10:41: mouth [place] (FISH OIL 15 daily. Medical ORAL) Branch BIOTIN ORAL Yes Take by Uni vers 06-17 mouth. ity of 10:41: [place] [address] Medical Branch FOLIC ACID 0 Yes Take by Univ ers ORAL - mouth ity of 10:41: daily. [place] 15 Medical Branch MULTIVIT 0 Yes Take by Univer s &MINERALS/F 06-17 mouth. ity of ERROUS FUM 10:41: [place] (MULTI 15 Medical VITAMIN Branch ORAL) METHYLCELLU 0 Yes Univer s LOSE (FIBER - ity of THERAPY 10:41: [facility]) 15 Medical Branch vitamin C 0 Yes 1000mg Take 1,000 Univers with derrell 9-22 mg by ity of hips 1,000 10:41: mouth [place] mg tablet 15 daily. Medical Branch cholecalcif 0 Yes 1000U Take 1,000 [facility] edmar, 9-22 Units by ity of vitamin D3, 10:41: mouth [place] 25 mcg 15 daily. Medical (1,000 Branch unit) tablet CRANBERRY Yes Take by [facility] [place] rs FRUIT 06-17 mouth ity of EXTRACT 10:41: daily. [place] (CRANBERRY 15 Medical ORAL) Branch CALCIUM 0 Yes Take by Univers ORAL 06-17 mouth ity of 10:41: daily. [place] 15 Medical Branch DOCOSAHEXAN Yes 1000mg Take 1,000 [facility] OIC 9-22 mg by ity of ACID/EPA 10:41: mouth [place] (FISH OIL 15 daily. Medical ORAL) Branch BIOTIN ORAL 0 Yes Take by Uni vers 06-17 mouth. ity of 10:41: [place] [address] Medical Branch FOLIC ACID 0 Yes Take by Univ ers ORAL - mouth ity of 10:41: daily. [place] [address] Medical Branch MULTIVIT 0 Yes Take by Univer s &MINERALS/F - mouth. ity of ERROUS FUM 10:41: [place] (MULTI 15 Medical VITAMIN Branch ORAL) METHYLCELLU 2021-0 Yes Univer s LOSE (FIBER - ity of THERAPY 10:41: [facility]) Medical Branch vitamin C 0 Yes [...] -22 mouth ity of EXTRACT 10:41: daily. [place] (CRANBERRY 15 Medical ORAL) Branch CALCIUM 0 Yes Take by Univers ORAL 9-22 mouth ity of 10:41: daily. [place] 15 Medical Branch DOCOSAHEXAN 0 Yes 1000mg Take 1,000 [facility] OIC 9-22 mg by ity of ACID/EPA 10:41: mouth [place] (FISH OIL 15 daily. Medical ORAL) Branch BIOTIN ORAL 0 Yes Take by Uni vers 9-22 mouth. ity of 10:41: [place] 15 Medical Branch SUMAtriptan 0 Yes [id number] 50mg Take 1 Univers 50 mg 9-22 tablet by ity of tablet 00:00: mouth as [place] 00 needed for Medical Migraine. Branch topiramate 0 Yes [id number] 75mg Take 3 Univers 25 mg 9-22 tablets by ity of tablet 00:00: mouth in [place] 00 the Medical morning Branch and 3 tablets in the evening. SUMAtriptan 2021-0 Yes [id number] 50mg Take 1 Univers 50 mg 9-22 tablet by ity of tablet 00:00: mouth as [place] 00 needed for Medical Migraine. Branch topiramate 2021-0 Yes [id number] 75mg Take 3 Univers 25 mg 9-22 tablets by ity of tablet 00:00: mouth in [place] 00 the Medical morning Branch and 3 tablets in the evening. SUMAtriptan 2021-0 Yes [id number] 50mg Take 1 [facility] 50 mg 9-22 tablet by ity of tablet 00:00: mouth as [place] 00 needed for Medical Migraine. Branch topiramate 2021-0 Yes [id number] 75mg Take 3 Univers 25 mg 9-22 tablets by ity of tablet 00:00: mouth in [place] 00 the Medical morning Branch and 3 tablets in the evening. SUMAtriptan 2021-0 Yes [id number] 50mg Take 1 [facility] 50 mg 9-22 tablet by ity of tablet 00:00: mouth as [place] 00 needed for Medical Migraine. Branch topiramate 2021-0 Yes [id number] 75mg Take 3 [facility] 25 mg 9-22 tablets by ity of tablet 00:00: mouth in [place] 00 the Medical morning Branch and 3 tablets in the evening. topiramate 2021-0 Yes [id number] 75mg Take 3 Univers 25 mg 9-22 tablets by ity of tablet 00:00: mouth in [place] 00 the Medical morning Branch and 3 tablets in the evening. topiramate 2021-0 Yes [id number] 75mg Take 3 Univers 25 mg 9-22 tablets by ity of tablet 00:00: mouth in [place] 00 the Medical morning Branch and 3 tablets in the evening. topiramate 2021-0 Yes [id number] 75mg Take 3 [facility] 25 mg 9-22 tablets by ity of tablet 00:00: mouth in [place] 00 the Medical morning Branch and 3 tablets in the evening. topiramate 2021-0 Yes [id number] 75mg Take 3 Univers 25 mg 9-22 tablets by ity of tablet 00:00: mouth in [place] 00 the Medical morning Branch and 3 tablets in the evening. topiramate 2021-0 Yes [id number] 75mg Take 3 [facility] 25 mg 9-22 tablets by ity of tablet 00:00: mouth in [place] 00 the Medical morning Branch and 3 tablets in the evening. topiramate 2021-0 Yes [id number] 75mg Take 3 [facility] 25 mg 9-22 tablets by ity of tablet 00:00: mouth in [place] 00 the Medical morning Branch and 3 tablets in the evening. topiramate 2021-0 2021- No [id number] 75mg Take 3 Univers 25 mg 9-22 10-13 tablets by ity of tablet 00:00: 00:00 mouth in [place] 00 :00 the Medical morning Branch and 3 tablets in the evening. SUMAtriptan 2021-0 2021- No [id number] 50mg Take 1 Univers 50 mg 9-22 09-30 tablet by ity of tablet 00:00: 00:00 mouth as [place] 00 :00 needed for Medical Migraine. Branch pantoprazol 2021-0 Yes [id number] 40mg Take 1 Univers e 40 mg EC 9-16 tablet by ity of tablet 00:00: mouth in [place] 00 the Medical morning. Branch Simethicone 2021-0 Yes [id number] 125mg Take 1 Univers 125 mg 9-16 capsule by ity of 00:00: mouth [place] 00 after Medical meals and Branch at bedtime as needed for Gas (Per bowel prep). pantoprazol 2021-0 Yes [id number] 40mg Take 1 Univers e 40 mg EC 9-16 tablet by ity of tablet 00:00: mouth in [place] 00 the Medical morning. Branch Simethicone 2021-0 Yes [id number] 125mg Take 1 [facility] 125 mg 9-16 capsule by ity of 00:00: mouth [place] 00 after Medical meals and Branch at bedtime as needed for Gas (Per bowel prep). pantoprazol 2021-0 Yes [id number] 40mg Take 1 Univers e 40 mg EC 9-16 tablet by ity of tablet 00:00: mouth in [place] 00 the Medical morning. Branch Simethicone 2021-0 Yes [id number] 125mg Take 1 [facility] 125 mg 9-16 capsule by ity of 00:00: mouth [place] 00 after Medical meals and Branch at bedtime as needed for Gas (Per bowel prep). pantoprazol 2021-0 Yes [id number] 40mg Take 1 Univers e 40 mg EC 9-16 tablet by ity of tablet 00:00: mouth in [place] 00 the Medical morning. Branch Simethicone 0 Yes [id number] 125mg Take 1 [facility] 125 mg 9-16 capsule by ity of 00:00: mouth [place] 00 after Medical meals and Branch at bedtime as needed for Gas (Per bowel prep). pantoprazol 2021-0 Yes [id number] 40mg Take 1 Univers e 40 mg EC 9-16 tablet by ity of tablet 00:00: mouth in [place] 00 the Medical morning. Branch Simethicone 2021-0 Yes [id number] 125mg Take 1 [facility] 125 mg 9-16 capsule by ity of 00:00: mouth [place] 00 after Medical meals and Branch at bedtime as needed for Gas (Per bowel prep). pantoprazol 2021-0 Yes [id number] 40mg Take 1 Univers e 40 mg EC 9-16 tablet by ity of tablet 00:00: mouth in [place] 00 the Medical morning. Branch Simethicone 2021-0 Yes [id number] 125mg Take 1 [facility] 125 mg 9-16 capsule by ity of 00:00: mouth [place] 00 after Medical meals and Branch at bedtime as needed for Gas (Per bowel prep). pantoprazol 2021-0 Yes [id number] 40mg Take 1 Univers e 40 mg EC 9-16 tablet by ity of tablet 00:00: mouth in [place] 00 the Medical morning. Branch Simethicone 2021-0 Yes [id number] 125mg Take 1 [facility] 125 mg 9-16 capsule by ity of 00:00: mouth [place] 00 after Medical meals and Branch at bedtime as needed for Gas (Per bowel prep). pantoprazol Yes [id number] 40mg Take 1 [facility] e 40 mg EC 9-16 tablet by ity of tablet 00:00: mouth in [place] 00 the Medical morning. Branch Simethicone 0 Yes [id number] 125mg Take 1 [facility] 125 mg 9-16 capsule by ity of 00:00: mouth [place] 00 after Medical meals and Branch at bedtime as needed for Gas (Per bowel prep). pantoprazol Yes [id number] 40mg Take 1 [facility] e 40 mg EC 9-16 tablet by ity of tablet 00:00: mouth in [place] 00 the Medical morning. Branch Simethicone 0 Yes [id number] 125mg Take 1 [facility] 125 mg 9-16 capsule by ity of 00:00: mouth [place] 00 after Medical meals and Branch at bedtime as needed for Gas (Per bowel prep). pantoprazol Yes [id number] 40mg Take 1 [facility] e 40 mg EC 9-16 tablet by ity of tablet 00:00: mouth in [place] 00 the Medical morning. Branch Simethicone 0 Yes [id number] 125mg Take 1 [facility] 125 mg 9-16 capsule by ity of 00:00: mouth [place] 00 after Medical meals and Branch at bedtime as needed for Gas (Per bowel prep). pantoprazol 0 Yes [id number] 40mg Take 1 [facility] e 40 mg EC 9-16 tablet by ity of tablet 00:00: mouth in [place] 00 the Medical morning. Branch Simethicone 0 Yes [id number] 125mg Take 1 [facility] 125 mg 9-16 capsule by ity of 00:00: mouth [place] 00 after Medical meals and Branch at bedtime as needed for Gas (Per bowel prep). pantoprazol 2021-0 Yes [id number] 40mg Take 1 [facility] e 40 mg EC 9-16 tablet by ity of tablet 00:00: mouth in [place] 00 the Medical morning. Branch Simethicone 0 Yes [id number] 125mg Take 1 [facility] 125 mg 9-16 capsule by ity of 00:00: mouth [place] 00 after Medical meals and Branch at bedtime as needed for Gas (Per bowel prep). pantoprazol 0 Yes [id number] 40mg Take 1 [facility] e 40 mg EC 9-16 tablet by ity of tablet 00:00: mouth in [place] 00 the Medical morning. Branch Simethicone 0 Yes [id number] 125mg Take 1 [facility] 125 mg 9-16 capsule by ity of 00:00: mouth [place] 00 after Medical meals and Branch at bedtime as needed for Gas (Per bowel prep). pantoprazol 0 Yes [id number] 40mg Take 1 [facility] e 40 mg EC 9-16 tablet by ity of tablet 00:00: mouth in [place] 00 the Medical morning. Branch Simethicone 0 Yes [id number] 125mg Take 1 [facility] 125 mg 9-16 capsule by ity of 00:00: mouth [place] 00 after Medical meals and Branch at bedtime as needed for Gas (Per bowel prep). pantoprazol 0 Yes [id number] 40mg Take 1 [facility] e 40 mg EC 9-16 tablet by ity of tablet 00:00: mouth in [place] 00 the Medical morning. Branch Simethicone 0 Yes [id number] 125mg Take 1 [facility] 125 mg 9-16 capsule by ity of 00:00: mouth [place] 00 after Medical meals and Branch at bedtime as needed for Gas (Per bowel prep). Simethicone 2021-0 Yes [id number] 125mg Take 1 [facility] 125 mg 9-16 capsule by ity of 00:00: mouth [place] 00 after Medical meals and Branch at bedtime as needed for Gas (Per bowel prep). Simethicone 0 Yes [id number] 125mg Take 1 [facility] 125 mg 9-16 capsule by ity of 00:00: mouth [place] 00 after Medical meals and Branch at bedtime as needed for Gas (Per bowel prep). Simethicone 0 2021- No [id number] 125mg Take 1 [facility] 125 mg 9-16 11- capsule by ity of 00:00: 00:00 mouth [place] 00 :00 after Medical meals and Branch at bedtime as needed for Gas (Per bowel prep). Simethicone 2021-0 2021- No [id number] 125mg Take 1 [facility] 125 mg -16 11- capsule by ity of 00:00: 00:00 mouth [place] 00 :00 after Medical meals and Branch at bedtime as needed for Gas (Per bowel prep). pantoprazol 2021-0 2021- No [id number] 40mg Take 1 [facility] e 40 mg EC -16 10-13 tablet by ity of tablet 00:00: 00:00 mouth in [place] 00 :00 the Medical morning. Branch SUMAtriptan 2021-0 Yes [id number] TAKE 1 [facility] 50 mg 9-06 TABLET BY ity of tablet 00:00: MOUTH [place] 00 NEEDED FOR Medical MIGRAINE Branch HEADACHE ( MAY REPEAT IN 2 HOURS ) SUMAtriptan 2021-0 Yes [id number] TAKE 1 [facility] 50 mg 9-06 TABLET BY ity of tablet 00:00: MOUTH [place] 00 NEEDED FOR Medical MIGRAINE Branch HEADACHE ( MAY REPEAT IN 2 HOURS ) SUMAtriptan 2021-0 Yes [id number] TAKE 1 [facility] 50 mg 9-06 TABLET BY ity of tablet 00:00: MOUTH [place] 00 NEEDED FOR Medical MIGRAINE Branch HEADACHE ( MAY REPEAT IN 2 HOURS ) SUMAtriptan 2021-0 Yes [id number] TAKE 1 [facility] 50 mg 9-06 TABLET BY ity of tablet 00:00: MOUTH [place] 00 NEEDED FOR Medical MIGRAINE Branch HEADACHE ( MAY REPEAT IN 2 HOURS ) SUMAtriptan 2021-0 Yes [id number] TAKE 1 [facility] 50 mg 9-06 TABLET BY ity of tablet 00:00: MOUTH [place] 00 NEEDED FOR Medical MIGRAINE Branch HEADACHE ( MAY REPEAT IN 2 HOURS ) SUMAtriptan 2021-0 Yes [id number] TAKE 1 [facility] 50 mg 9-06 TABLET BY ity of tablet 00:00: MOUTH [place] 00 NEEDED FOR Medical MIGRAINE Branch HEADACHE ( MAY REPEAT IN 2 HOURS ) SUMAtriptan 2021-0 Yes [id number] TAKE 1 [facility] 50 mg 9-06 TABLET BY [facility] tablet 00:00: MOUTH [place] 00 NEEDED FOR Medical MIGRAINE Branch HEADACHE ( MAY REPEAT IN 2 HOURS ) SUMAtriptan 2021-0 Yes [id number] TAKE 1 [facility] 50 mg 9-06 TABLET BY [facility] tablet 00:00: MOUTH [place] 00 NEEDED FOR Medical MIGRAINE Branch HEADACHE ( MAY REPEAT IN 2 HOURS ) SUMAtriptan 2021-0 Yes [id number] TAKE 1 [facility] 50 mg 9-06 TABLET BY [facility] tablet 00:00: MOUTH [place] 00 NEEDED FOR Medical MIGRAINE Branch HEADACHE ( MAY REPEAT IN 2 HOURS ) SUMAtriptan 2021-0 Yes [id number] TAKE 1 [facility] 50 mg 9-06 TABLET BY [facility] tablet 00:00: MOUTH [place] 00 NEEDED FOR Medical MIGRAINE Branch HEADACHE ( MAY REPEAT IN 2 HOURS ) SUMAtriptan 2021-0 Yes [id number] TAKE 1 [facility] 50 mg 9-06 TABLET BY [facility] tablet 00:00: MOUTH [place] 00 NEEDED FOR Medical MIGRAINE Branch HEADACHE ( MAY REPEAT IN 2 HOURS ) SUMAtriptan 2021-0 Yes [id number] TAKE 1 [facility] 50 mg 9-06 TABLET BY [facility] tablet 00:00: MOUTH [place] 00 NEEDED FOR Medical MIGRAINE Branch HEADACHE ( MAY REPEAT IN 2 HOURS ) SUMAtriptan 2021-0 2021- No [id number] TAKE 1 [facility] 50 mg 9-06 -22 TABLET BY [facility] tablet 00:00: 00:00 MOUTH [place] 00 :00 NEEDED FOR Medical MIGRAINE Branch HEADACHE ( MAY REPEAT IN 2 HOURS ) SUMAtriptan 2021-0 2021- No [id number] TAKE 1 [facility] 50 mg 9-06 -22 TABLET BY [facility] tablet 00:00: 00:00 MOUTH [place] 00 :00 NEEDED FOR Medical MIGRAINE Branch HEADACHE ( MAY REPEAT IN 2 HOURS ) SUMAtriptan 2021-0 2021- No [id number] TAKE 1 [facility] 50 mg 9-06 09-22 TABLET BY [facility] tablet 00:00: 00:00 MOUTH [place] 00 :00 NEEDED FOR Medical MIGRAINE Branch HEADACHE ( MAY REPEAT IN 2 HOURS ) topiramate 2021-0 Yes [id number] Take 2 [facility] 25 mg 9-01 tablets by [facility] tablet 00:00: mouth [place] 00 twice Medical daily Branch topiramate 2-0 Yes [id number] Take 2 [facility] 25 mg 9-01 tablets by [facility] tablet 00:00: mouth [place] 00 twice Medical daily Branch topiramate 2-0 Yes [id number] Take 2 [facility] 25 mg 9-01 tablets by [facility] tablet 00:00: mouth [place] 00 twice Medical daily Branch topiramate 2-0 Yes [id number] Take 2 [facility] 25 mg 9-01 tablets by [facility] tablet 00:00: mouth [place] 00 twice Medical daily Branch topiramate 2022-0 Yes [id number] Take 2 [facility] 25 mg 9-01 tablets by [facility] tablet 00:00: mouth [place] 00 twice Medical daily Branch topiramate 2022-0 Yes [id number] Take 2 [facility] 25 mg 9-01 tablets by [facility] tablet 00:00: mouth [place] 00 twice Medical daily Branch topiramate 2022-0 Yes [id number] Take 2 [facility] 25 mg 9-01 tablets by [facility] tablet 00:00: mouth [place] 00 twice Medical daily Branch topiramate 2022-0 Yes [id number] Take 2 [facility] 25 mg 9-01 tablets by [facility] tablet 00:00: mouth [place] 00 twice Medical daily Branch topiramate 2022-0 Yes [id number] Take 2 [facility] 25 mg 9-01 tablets by [facility] tablet 00:00: mouth [place] twice Medical daily Branch topiramate 2022-0 Yes [id number] Take 2 [facility] 25 mg 9-01 tablets by [facility] tablet 00:00: mouth [place] 00 twice Medical daily Branch topiramate 2022-0 Yes [id number] Take 2 [facility] 25 mg 9-01 tablets by [facility] tablet 00:00: mouth [place] 00 twice Medical daily Branch topiramate 2022-0 Yes [id number] Take 2 [facility] 25 mg 9-01 tablets by [facility] tablet 00:00: mouth [place] 00 twice Medical daily Branch topiramate 2022-0 Yes [id number] Take 2 [facility] 25 mg 9-01 tablets by [facility] tablet 00:00: mouth [place] 00 twice Medical daily Branch topiramate 2022-0 Yes [id number] Take 2 [facility] 25 mg 9-01 tablets by [facility] tablet 00:00: mouth [place] 00 twice Medical daily Branch topiramate 2022-0 Yes [id number] Take 2 [facility] 25 mg 9-01 tablets by [facility] tablet 00:00: mouth [place] 00 twice Medical daily Branch topiramate 2022-0 2- No [id number] Take 2 [facility] 25 mg 9-01 - tablets by [facility] tablet 00:00: 00:00 mouth [place] 00 :00 twice Medical daily Branch topiramate 2022-0 2- No [id number] Take 2 [facility] 25 mg 9-01 -22 tablets by [facility] tablet 00:00: 00:00 mouth [place] 00 :00 twice Medical daily Branch topiramate 2021- No [id number] Take 2 [facility] 25 mg -06-17 tablets by [facility] tablet 00:00: 00:00 mouth [place] 00 :00 twice Medical daily Branch methocarbam 2021-0 Yes [id number] 500mg Take 1 [facility] o[facility] 500 mg 8-11 tablet by [facility] tablet 00:00: mouth (four) Medical times Branch daily as needed for Pain (scale 7-10). methocarbam Yes [id number] 500mg Take 1 [facility] o[facility] 500 mg 8-11 tablet by [facility] tablet 00:00: mouth (four) Medical times Branch daily as needed for Pain (scale 7-10). methocarbam Yes [id number] 500mg Take 1 [facility] o[facility] 500 mg 8-11 tablet by [facility] tablet 00:00: mouth (four) Medical times Branch daily as needed for Pain (scale 7-10). methocarbam Yes [id number] 500mg Take 1 [facility] o[facility] 500 mg 8-11 tablet by [facility] tablet 00:00: mouth (four) Medical times Branch daily as needed for Pain (scale 7-10). methocarbam 2021-0 Yes [id number] 500mg Take 1 [facility] o[facility] 500 mg 8-11 tablet by [facility] tablet 00:00: mouth (four) Medical times Branch daily as needed for Pain (scale 7-10). methocarbam 2021-0 Yes [id number] 500mg Take 1 [facility] o[facility] 500 mg 8-11 tablet by [facility] tablet 00:00: mouth (four) Medical times Branch daily as needed for Pain (scale 7-10). methocarbam 2021-0 Yes [id number] 500mg Take 1 [facility] o[facility] 500 mg 8-11 tablet by [facility] tablet 00:00: mouth (four) Medical times Branch daily as needed for Pain (scale 7-10). methocarbam 2021-0 Yes [id number] 500mg Take 1 [facility] o[facility] 500 mg 8-11 tablet by [facility] tablet 00:00: mouth (four) Medical times Branch daily as needed for Pain (scale 7-10). methocarbam 2022-0 Yes [id number] 500mg Take 1 [facility] o[facility] 500 mg 8-11 tablet by [facility] tablet 00:00: mouth (four) Medical times Branch daily as needed for Pain (scale 7-10). methocarbam 2022-0 Yes [id number] 500mg Take 1 [facility] o[facility] 500 mg 8-11 tablet by [facility] tablet 00:00: mouth (four) Medical times Branch daily as needed for Pain (scale 7-10). methocarbam 2022-0 Yes [id number] 500mg Take 1 [facility] o[facility] 500 mg 8-11 tablet by [facility] tablet 00:00: mouth (four) Medical times Branch daily as needed for Pain (scale 7-10). methocarbam 2022-0 Yes [id number] 500mg Take 1 [facility] o[facility] 500 mg 8-11 tablet by [facility] tablet 00:00: mouth (four) Medical times Branch daily as needed for Pain (scale 7-10). methocarbam 2022-0 Yes [id number] 500mg Take 1 [facility] o[facility] 500 mg 8-11 tablet by [facility] tablet 00:00: mouth (four) Medical times Branch daily as needed for Pain (scale 7-10). methocarbam 2022-0 Yes [id number] 500mg Take 1 [facility] o[facility] 500 mg 8-11 tablet by [facility] tablet 00:00: mouth (four) Medical times Branch daily as needed for Pain (scale 7-10). methocarbam 2022-0 Yes [id number] 500mg Take 1 [facility] o[facility] 500 mg 8-11 tablet by [facility] tablet 00:00: mouth (four) Medical times Branch daily as needed for Pain (scale 7-10). methocarbam 2022-0 Yes [id number] 500mg Take 1 [facility] o[facility] 500 mg 8-11 tablet by [facility] tablet 00:00: mouth (four) Medical times Branch daily as needed for Pain (scale 7-10). methocarbam 2022-0 Yes [id number] 500mg Take 1 [facility] o[facility] 500 mg 8-11 tablet by [facility] tablet 00:00: mouth (four) Medical times Branch daily as needed for Pain (scale 7-10). methocarbam 2022-0 Yes [id number] 500mg Take 1 [facility] o[facility] 500 mg 8-11 tablet by [facility] tablet 00:00: mouth (four) Medical times Branch daily as needed for Pain (scale 7-10). methocarbam 2022-0 Yes [id number] 500mg Take 1 [facility] o[facility] 500 mg 8-11 tablet by [facility] tablet 00:00: mouth (four) Medical times Branch daily as needed for Pain (scale 7-10). methocarbam 2022-0 Yes [id number] 500mg Take 1 [facility] o[facility] 500 mg 8-11 tablet by [facility] tablet 00:00: mouth (four) Medical times Branch daily as needed for Pain (scale 7-10). methocarbam 2022-0 Yes [id number] 500mg Take 1 [facility] o[facility] 500 mg 8-11 tablet by [facility] tablet 00:00: mouth (four) Medical times Branch daily as needed for Pain (scale 7-10). methocarbam 2-0 Yes [id number] 500mg Take 1 [facility] o[facility] 500 mg 8-11 tablet by [facility] tablet 00:00: mouth (four) Medical times Branch daily as needed for Pain (scale 7-10). methocarbam 2022-0 Yes [id number] 500mg Take 1 [facility] o[facility] 500 mg 8-11 tablet by [facility] tablet 00:00: mouth (four) Medical times Branch daily as needed for Pain (scale 7-10). methocarbam 2022-0 Yes [id number] 500mg Take 1 [facility] o[facility] 500 mg 8-11 tablet by [facility] tablet 00:00: mouth (four) Medical times Branch daily as needed for Pain (scale 7-10). methocarbam 2022-0 Yes [id number] 500mg Take 1 [facility] o[facility] 500 mg 8-11 tablet by [facility] tablet 00:00: mouth (four) Medical times Branch daily as needed for Pain (scale 7-10). methocarbam 2022-0 Yes [id number] 500mg Take 1 [facility] o[facility] 500 mg 8-11 tablet by [facility] tablet 00:00: mouth (four) Medical times Branch daily as needed for Pain (scale 7-10). methocarbam 2-0 Yes [id number] 500mg Take 1 [facility] 500 mg 8-11 tablet by [facility] tablet 00:00: mouth (four) Medical times Branch daily as needed for Pain (scale 7-10). methocarbam 2-0 Yes [id number] 500mg Take 1 [facility] 500 mg 8-11 tablet by [facility] tablet 00:00: mouth (four) Medical times Branch daily as needed for Pain (scale 7-10). methocarbam 2-0 Yes [id number] 500mg Take 1 [facility] 500 mg 8-11 tablet by [facility] tablet 00:00: mouth (four) Medical times Branch daily as needed for Pain (scale 7-10). methocarbam 2-0 Yes [id number] 500mg Take 1 [facility] o[facility] 500 mg 8-11 tablet by [facility] tablet 00:00: mouth (four) Medical times Branch daily as needed for Pain (scale 7-10). methocarbam 2-0 Yes [id number] 500mg Take 1 [facility] o[facility] 500 mg 8-11 tablet by [facility] tablet 00:00: mouth (four) Medical times Branch daily as needed for Pain (scale 7-10). methocarbam 2-0 Yes [id number] 500mg Take 1 [facility] o[facility] 500 mg 8-11 tablet by [facility] f tablet 00:00: mouth (four) Medical times Branch daily as needed for Pain (scale 7-10). methocarbam 2-0 Yes [id number] 500mg Take 1 [facility] o[facility] 500 mg 8-11 tablet by [facility] tablet 00:00: mouth (four) Medical times Branch daily as needed for Pain (scale 7-10). methocarbam 2-0 Yes [id number] 500mg Take 1 [facility] o[facility] 500 mg 8-11 tablet by [facility] f tablet 00:00: mouth (four) Medical times Branch daily as needed for Pain (scale 7-10). methocarbam 2-0 Yes [id number] 500mg Take 1 [facility] o[facility] 500 mg 8-11 tablet by [facility] f tablet 00:00: mouth (four) Medical times Branch daily as needed for Pain (scale 7-10). methocarbam 2022-0 Yes [id number] 500mg Take 1 [facility] o[facility] 500 mg 8-11 tablet by [facility] f tablet 00:00: mouth (four) Medical times Branch daily as needed for Pain (scale 7-10). methocarbam 2-0 Yes [id number] 500mg Take 1 [facility] o[facility] 500 mg 8-11 tablet by [facility] f tablet 00:00: mouth (four) Medical times Branch daily as needed for Pain (scale 7-10). methocarbam 2022-0 Yes [id number] 500mg Take 1 [facility] o[facility] 500 mg 8-11 tablet by [facility] f tablet 00:00: mouth (four) Medical times Branch daily as needed for Pain (scale 7-10). methocarbam 2-0 Yes [id number] 500mg Take 1 [facility] o[facility] 500 mg 8-11 tablet by [facility] f tablet 00:00: mouth (four) Medical times Branch daily as needed for Pain (scale 7-10). methocarbam 2-0 Yes [id number] 500mg Take 1 [facility] o[facility] 500 mg 8-11 tablet by [facility] tablet 00:00: mouth (four) Medical times Branch daily as needed for Pain (scale 7-10). methocarbam 2-0 Yes [id number] 500mg Take 1 [facility] o[facility] 500 mg 8-11 tablet by [facility] f tablet 00:00: mouth (four) Medical times Branch daily as needed for Pain (scale 7-10). methocarbam 2-0 Yes [id number] 500mg Take 1 [facility] o[facility] 500 mg 8-11 tablet by [facility] f tablet 00:00: mouth (four) Medical times Branch daily as needed for Pain (scale 7-10). methocarbam 2022-0 Yes [id number] 500mg Take 1 [facility] o[facility] 500 mg 8-11 tablet by [facility] f tablet 00:00: mouth (four) Medical times Branch daily as needed for Pain (scale 7-10). methocarbam 2022-0 Yes [id number] 500mg Take 1 [facility] o[facility] 500 mg 8-11 tablet by [facility] f tablet 00:00: mouth (four) Medical times Branch daily as needed for Pain (scale 7-10). methocarbam 2022-0 Yes [id number] 500mg Take 1 [facility] o[facility] 500 mg 8-11 tablet by [facility] f tablet 00:00: mouth (four) Medical times Branch daily as needed for Pain (scale 7-10). methocarbam 2021-0 Yes [id number] 500mg Take 1 [facility] o[facility] 500 mg 8-11 tablet by [facility] f tablet 00:00: mouth (four) Medical times Branch daily as needed for Pain (scale 7-10). methocarbam 2021-0 Yes [id number] 500mg Take 1 [facility] o[facility] 500 mg 8-11 tablet by [facility] f tablet 00:00: mouth (four) Medical times Branch daily as needed for Pain (scale 7-10). methocarbam 2021-0 Yes [id number] 500mg Take 1 [facility] o[facility] 500 mg 8-11 tablet by [facility] f tablet 00:00: mouth (four) Medical times Branch daily as needed for Pain (scale 7-10). methocarbam 2021-0 Yes [id number] 500mg Take 1 [facility] o[facility] 500 mg 8-11 tablet by [facility] f tablet 00:00: mouth (four) Medical times Branch daily as needed for Pain (scale 7-10). methocarbam 2021-0 Yes [id number] 500mg Take 1 [facility] o[facility] 500 mg 8-11 tablet by [facility] f tablet 00:00: mouth (four) Medical times Branch daily as needed for Pain (scale 7-10). methocarbam 2021-0 Yes [id number] 500mg Take 1 [facility] o[facility] 500 mg 8-11 tablet by [facility] f tablet 00:00: mouth (four) Medical times Branch daily as needed for Pain (scale 7-10). methocarbam 2021-0 Yes [id number] 500mg Take 1 [facility] o[facility] 500 mg 8-11 tablet by [facility] f tablet 00:00: mouth (four) Medical times Branch daily as needed for Pain (scale 7-10). LOSARTAN 50 2021-0 Yes [id number] Take 1 [facility] mg tablet 7-20 tablet by [facility] o f 00:00: mouth 00 twice Medical daily Branch DILTIAZEM 2021-0 Yes [id number] Take 1 [facility] 120 mg 24 7-20 capsule by [facility] hr capsule 00:00: mouth twice Medical daily Branch LOSARTAN 50 2021-0 Yes [id number] Take 1 [facility] mg tablet 7-20 tablet by [facility] o f 00:00: mouth twice Medical daily Branch DILTIAZEM 2021-0 Yes [id number] Take 1 [facility] [place] 120 mg 24 7-20 capsule by [facility] hr capsule 00:00: mouth twice Medical daily Branch LOSARTAN 50 2021-0 Yes [id number] Take 1 [facility] mg tablet 7-20 tablet by [facility] o f 00:00: mouth twice Medical daily Branch DILTIAZEM 2021-0 Yes [id number] Take 1 [facility] [place] 120 mg 24 7-20 capsule by [facility] hr capsule 00:00: mouth twice Medical daily Branch LOSARTAN 50 2021-0 Yes [id number] Take 1 [facility] mg tablet 7-20 tablet by [facility] o f 00:00: mouth twice Medical daily Branch DILTIAZEM 2021-0 Yes [id number] Take 1 [facility] [place] 120 mg 24 7-20 capsule by [facility] hr capsule 00:00: mouth twice Medical daily Branch LOSARTAN 50 2021-0 Yes [id number] Take 1 [facility] mg tablet 7-20 tablet by [facility] o f 00:00: mouth twice Medical daily Branch DILTIAZEM 2021-0 Yes [id number] Take 1 [facility] [place] 120 mg 24 7-20 capsule by [facility] hr capsule 00:00: mouth twice Medical daily Branch LOSARTAN 50 2021-0 Yes [id number] Take 1 [facility] mg tablet 7-20 tablet by [facility] o f 00:00: twice Medical daily Branch DILTIAZEM 2021-0 Yes [id number] Take 1 [facility] [place] 120 mg 24 7-20 capsule by [facility] hr capsule 00:00: mouth twice Medical daily Branch LOSARTAN 50 2021-0 Yes [id number] Take 1 [facility] mg tablet 7-20 tablet by [facility] o f 00:00: mouth twice Medical daily Branch DILTIAZEM 2-0 Yes [id number] Take 1 [facility] [place] 120 mg 24 7-20 capsule by [facility] hr capsule 00:00: mouth twice Medical daily Branch LOSARTAN 50 2-0 Yes [id number] Take 1 [facility] mg tablet 7-20 tablet by [facility] o f 00:00: mouth twice Medical daily Branch DILTIAZEM 2021-0 Yes [id number] Take 1 [facility] [place] 120 mg 24 7-20 capsule by [facility] hr capsule 00:00: mouth twice Medical daily Branch LOSARTAN 50 2021-0 Yes [id number] Take 1 [facility] mg tablet 7-20 tablet by [facility] o f 00:00: mouth twice Medical daily Branch DILTIAZEM 2021-0 Yes [id number] Take 1 [facility] [place] 120 mg 24 7-20 capsule by [facility] hr capsule 00:00: mouth twice Medical daily Branch LOSARTAN 50 2021-0 Yes [id number] Take 1 [facility] mg tablet 7-20 tablet by [facility] o f 00:00: mouth twice Medical daily Branch DILTIAZEM 2021-0 Yes [id number] Take 1 [facility] [place] 120 mg 24 7-20 capsule by [facility] hr capsule 00:00: mouth twice Medical daily Branch LOSARTAN 50 2021-0 Yes [id number] Take 1 [facility] mg tablet 7-20 tablet by [facility] o f 00:00: mouth twice Medical daily Branch DILTIAZEM 2021-0 Yes [id number] Take 1 [facility] [place] 120 mg 24 7-20 capsule by [facility] hr capsule 00:00: mouth twice Medical daily Branch LOSARTAN 50 2021-0 Yes [id number] Take 1 [facility] mg tablet 7-20 tablet by [facility] o f 00:00: mouth twice Medical daily Branch DILTIAZEM 2021-0 Yes [id number] Take 1 [facility] [place] 120 mg 24 7-20 capsule by [facility] hr capsule 00:00: twice Medical daily Branch LOSARTAN 50 2021-0 Yes [id number] Take 1 [facility] mg tablet 7-20 tablet by [facility] o f 00:00: mouth twice Medical daily Branch DILTIAZEM 2021-0 Yes [id number] Take 1 [facility] [place] 120 mg 24 7-20 capsule by [facility] hr capsule 00:00: mouth twice Medical daily Branch LOSARTAN 50 2021-0 Yes [id number] Take 1 [facility] mg tablet 7-20 tablet by [facility] o f 00:00: mouth twice Medical daily Branch DILTIAZEM 2021-0 Yes [id number] Take 1 [facility] [place] 120 mg 24 7-20 capsule by [facility] hr capsule 00:00: mouth [place] 00 twice Medical daily Branch LOSARTAN 50 2021-0 Yes [id number] Take 1 [facility] mg tablet 7-20 tablet by [facility] o f 00:00: mouth twice Medical daily Branch DILTIAZEM 2021-0 Yes [id number] Take 1 [facility] [place] 120 mg 24 7-20 capsule by [facility] hr capsule 00:00: mouth twice Medical daily Branch LOSARTAN 50 2021-0 Yes [id number] Take 1 [facility] mg tablet 7-20 tablet by [facility] o f 00:00: mouth twice Medical daily Branch DILTIAZEM 2021-0 Yes [id number] Take 1 [facility] [place] 120 mg 24 7-20 capsule by [facility] hr capsule 00:00: mouth twice Medical daily Branch LOSARTAN 50 2021-0 Yes [id number] Take 1 [facility] mg tablet 7-20 tablet by [facility] o f 00:00: mouth twice Medical daily Branch DILTIAZEM 2021-0 Yes [id number] Take 1 [facility] [place] 120 mg 24 7-20 capsule by [facility] hr capsule 00:00: mouth twice Medical daily Branch LOSARTAN 50 2021-0 Yes [id number] Take 1 [facility] mg tablet 7-20 tablet by [facility] o f 00:00: mouth twice Medical daily Branch DILTIAZEM 2021-0 Yes [id number] Take 1 [facility] [place] 120 mg 24 7-20 capsule by [facility] hr capsule 00:00: mouth twice Medical daily Branch LOSARTAN 50 2021-0 Yes [id number] Take 1 [facility] mg tablet 7-20 tablet by [facility] o f 00:00: mouth twice Medical daily Branch DILTIAZEM 2021-0 Yes [id number] Take 1 [facility] [place] 120 mg 24 7-20 capsule by [facility] hr capsule 00:00: mouth twice Medical daily Branch LOSARTAN 50 2021-0 Yes [id number] Take 1 [facility] mg tablet 7-20 tablet by [facility] o f 00:00: mouth twice Medical daily Branch DILTIAZEM 2021-0 Yes [id number] Take 1 [facility] [place] 120 mg 24 7-20 capsule by [facility] hr capsule 00:00: mouth twice Medical daily Branch LOSARTAN 50 2021-0 Yes [id number] Take 1 [facility] mg tablet 7-20 tablet by [facility] o f 00:00: mouth twice Medical daily Branch DILTIAZEM 2021-0 Yes [id number] Take 1 [facility] [place] 120 mg 24 7-20 capsule by [facility] hr capsule 00:00: mouth twice Medical daily Branch LOSARTAN 50 2021-0 Yes [id number] Take 1 [facility] mg tablet 7-20 tablet by [facility] o f 00:00: mouth twice Medical daily Branch DILTIAZEM 2021-0 Yes [id number] Take 1 [facility] [place] 120 mg 24 7-20 capsule by [facility] hr capsule 00:00: mouth twice Medical daily Branch LOSARTAN 50 2021-0 Yes [id number] Take 1 [facility] mg tablet 7-20 tablet by [facility] o f 00:00: mouth twice Medical daily Branch DILTIAZEM 2021-0 Yes [id number] Take 1 [facility] [place] 120 mg 24 7-20 capsule by [facility] hr capsule 00:00: mouth twice Medical daily Branch LOSARTAN 50 2021-0 Yes [id number] Take 1 [facility] mg tablet 7-20 tablet by [facility] o f 00:00: mouth twice Medical daily Branch DILTIAZEM 2021-0 Yes [id number] Take 1 [facility] [place] 120 mg 24 7-20 capsule by [facility] hr capsule 00:00: mouth twice Medical daily Branch LOSARTAN 50 2021-0 Yes [id number] Take 1 [facility] mg tablet 7-20 tablet by [facility] o f 00:00: mouth twice Medical daily Branch DILTIAZEM 2021-0 Yes [id number] Take 1 [facility] [place] 120 mg 24 7-20 capsule by [facility] hr capsule 00:00: mouth twice Medical daily Branch LOSARTAN 50 2021-0 Yes [id number] Take 1 [facility] mg tablet 7-20 tablet by [facility] o f 00:00: mouth twice Medical daily Branch DILTIAZEM 2021-0 Yes [id number] Take 1 [facility] [place] 120 mg 24 7-20 capsule by [facility] hr capsule 00:00: mouth twice Medical daily Branch LOSARTAN 50 2021-0 Yes [id number] Take 1 [facility] mg tablet 7-20 tablet by [facility] o f 00:00: mouth twice Medical daily Branch DILTIAZEM 2021-0 Yes [id number] Take 1 [facility] [place] 120 mg 24 7-20 capsule by [facility] hr capsule 00:00: mouth twice Medical daily Branch LOSARTAN 50 2021-0 Yes [id number] Take 1 [facility] mg tablet 7-20 tablet by [facility] o f 00:00: mouth 00 twice Medical daily Branch DILTIAZEM 2021-0 Yes [id number] Take 1 [facility] [place] 120 mg 24 7-20 capsule by [facility] hr capsule 00:00: mouth 00 twice Medical daily Branch LOSARTAN 50 2021-0 Yes [id number] Take 1 [facility] mg tablet 7-20 tablet by [facility] o f 00:00: mouth twice Medical daily Branch DILTIAZEM 2021-0 Yes [id number] Take 1 [facility] [place] 120 mg 24 7-20 capsule by [facility] hr capsule 00:00: mouth 00 twice Medical daily Branch LOSARTAN 50 2021-0 Yes [id number] Take 1 [facility] mg tablet 7-20 tablet by [facility] o f 00:00: mouth twice Medical daily Branch DILTIAZEM 2021-0 Yes [id number] Take 1 [facility] [place] 120 mg 24 7-20 capsule by [facility] hr capsule 00:00: mouth twice Medical daily Branch LOSARTAN 50 2021-0 Yes [id number] Take 1 [facility] mg tablet 7-20 tablet by [facility] o f 00:00: mouth 00 twice Medical daily Branch DILTIAZEM 2021-0 Yes [id number] Take 1 [facility] [place] 120 mg 24 7-20 capsule by [facility] hr capsule 00:00: mouth 00 twice Medical daily Branch LOSARTAN 50 2021-0 Yes [id number] Take 1 [facility] mg tablet 7-20 tablet by [facility] o f 00:00: mouth 00 twice Medical daily Branch DILTIAZEM 2021-0 Yes [id number] Take 1 [facility] [place] 120 mg 24 7-20 capsule by [facility] hr capsule 00:00: mouth 00 twice Medical daily Branch LOSARTAN 50 2-0 2021- No [id number] Take 1 [facility] mg tablet 7-20 10-13 tablet by [facility] of 00:00: 00:00 mouth [place] 00 :00 twice Medical daily Branch DILTIAZEM 2-0 2021- No [id number] Take 1 [facility] 120 mg 24 7-20 10-13 capsule by [facility] hr capsule 00:00: 00:00 mouth [place] 00 :00 twice Medical daily Branch methocarbam 2-0 Yes [id number] 500mg Take 1 [facility] oL 500 mg 7-02 tablet by [facility] o f tablet 00:00: mouth 4 [place] 00 (four) Medical times Branch daily. methocarbam 2-0 Yes [id number] 500mg Take 1 [facility] oL 500 mg 7-02 tablet by [facility] o f tablet 00:00: mouth 4 [place] 00 (four) Medical times Branch daily. methocarbam 2-0 Yes [id number] 500mg Take 1 [facility] oL 500 mg 7-02 tablet by [facility] o f tablet 00:00: mouth 4 00 (four) Medical times Branch daily. methocarbam 2-0 Yes [id number] 500mg Take 1 [facility] oL 500 mg 7-02 tablet by [facility] o f tablet 00:00: mouth 4 00 (four) Medical times Branch daily. methocarbam 2-0 Yes [id number] 500mg Take 1 [facility] oL 500 mg 7-02 tablet by [facility] o f tablet 00:00: mouth 4 00 (four) Medical times Branch daily. methocarbam 2021-0 2022- No [id number] 500mg Take 1 [facility] oL 500 mg 7-02 08-11 tablet by [facility] tablet 00:00: 00:00 mouth 4 [place] 00 :00 (four) Medical times Branch daily. SUMATRIPTAN 2021-0 Yes [id number] TAKE 1 [facility] 50 mg 6-17 TABLET BY [facility] tablet 00:00: MOUTH [place] 00 NEEDED FOR Medical MIGRAINE Branch HEADACHE (MAY REPEAT IN TWO HOURS) SUMATRIPTAN 2021-0 Yes [id number] TAKE 1 [facility] 50 mg 6-17 TABLET BY [facility] tablet 00:00: MOUTH [place] 00 NEEDED FOR Medical MIGRAINE Branch HEADACHE (MAY REPEAT IN TWO HOURS) SUMATRIPTAN 2-0 Yes [id number] TAKE 1 [facility] 50 mg 6-17 TABLET BY [facility] tablet 00:00: MOUTH [place] 00 NEEDED FOR Medical MIGRAINE Branch HEADACHE (MAY REPEAT IN TWO HOURS) SUMATRIPTAN 2-0 Yes [id number] TAKE 1 [facility] 50 mg 6-17 TABLET BY [facility] tablet 00:00: MOUTH [place] 00 NEEDED FOR Medical MIGRAINE Branch HEADACHE (MAY REPEAT IN TWO HOURS) SUMATRIPTAN 2-0 Yes [id number] TAKE 1 [facility] 50 mg 6-17 TABLET BY [facility] tablet 00:00: MOUTH [place] 00 NEEDED FOR Medical MIGRAINE Branch HEADACHE (MAY REPEAT IN TWO HOURS) SUMATRIPTAN 2022-0 Yes [id number] TAKE 1 [facility] 50 mg 6-17 TABLET BY [facility] tablet 00:00: MOUTH [place] 00 NEEDED FOR Medical MIGRAINE Branch HEADACHE (MAY REPEAT IN TWO HOURS) SUMATRIPTAN 2022-0 Yes [id number] TAKE 1 [facility] 50 mg 6-17 TABLET BY [facility] tablet 00:00: MOUTH [place] 00 NEEDED FOR Medical MIGRAINE Branch HEADACHE (MAY REPEAT IN TWO HOURS) SUMATRIPTAN 2022-0 Yes [id number] TAKE 1 [facility] 50 mg 6-17 TABLET BY [facility] tablet 00:00: MOUTH [place] 00 NEEDED FOR Medical MIGRAINE Branch HEADACHE (MAY REPEAT IN TWO HOURS) SUMATRIPTAN 2022-0 Yes [id number] TAKE 1 [facility] 50 mg 6-17 TABLET BY [facility] tablet 00:00: MOUTH [place] 00 NEEDED FOR Medical MIGRAINE Branch HEADACHE (MAY REPEAT IN TWO HOURS) SUMATRIPTAN 2022-0 Yes [id number] TAKE 1 [facility] 50 mg 6-17 TABLET BY [facility] tablet 00:00: MOUTH [place] 00 NEEDED FOR Medical MIGRAINE Branch HEADACHE (MAY REPEAT IN TWO HOURS) SUMATRIPTAN 2022-0 Yes [id number] TAKE 1 [facility] 50 mg 6-17 TABLET BY [facility]y of tablet 00:00: MOUTH [place] 00 NEEDED FOR Medical MIGRAINE Branch HEADACHE (MAY REPEAT IN TWO HOURS) SUMATRIPTAN 2022-0 Yes [id number] TAKE 1 [facility] 50 mg 6-17 TABLET BY ity of tablet 00:00: MOUTH [place] 00 NEEDED FOR Medical MIGRAINE Branch HEADACHE (MAY REPEAT IN TWO HOURS) SUMATRIPTAN 2022-0 Yes [id number] TAKE 1 [facility] 50 mg 6-17 TABLET BY ity of tablet 00:00: MOUTH [place] 00 NEEDED FOR Medical MIGRAINE Branch HEADACHE (MAY REPEAT IN TWO HOURS) SUMATRIPTAN 2022-0 Yes [id number] TAKE 1 [facility] 50 mg 6-17 TABLET BY ity of tablet 00:00: MOUTH [place] 00 NEEDED FOR Medical MIGRAINE Branch HEADACHE (MAY REPEAT IN TWO HOURS) SUMATRIPTAN 2022-0 Yes [id number] TAKE 1 [facility] 50 mg 6-17 TABLET BY ity of tablet 00:00: MOUTH [place] 00 NEEDED FOR Medical MIGRAINE Branch HEADACHE (MAY REPEAT IN TWO HOURS) SUMATRIPTAN 2022-0 Yes [id number] TAKE 1 [facility] 50 mg 6-17 TABLET BY ity of tablet 00:00: MOUTH [place] 00 NEEDED FOR Medical MIGRAINE Branch HEADACHE (MAY REPEAT IN TWO HOURS) SUMATRIPTAN 2021-0 Yes [id number] TAKE 1 [facility] 50 mg 6-17 TABLET BY ity of tablet 00:00: MOUTH [place] 00 NEEDED FOR Medical MIGRAINE Branch HEADACHE (MAY REPEAT IN TWO HOURS) SUMATRIPTAN 2021-0 2- No [id number] TAKE 1 [facility] 50 mg 6-17 09-06 TABLET BY ity of tablet 00:00: 00:00 MOUTH [place] 00 :00 NEEDED FOR Medical MIGRAINE Branch HEADACHE (MAY REPEAT IN TWO HOURS) SUMATRIPTAN 2021-0 2021- No [id number] TAKE 1 [facility] 50 mg 6-17 09-06 TABLET BY ity of tablet 00:00: 00:00 MOUTH [place] 00 :00 NEEDED FOR Medical MIGRAINE Branch HEADACHE (MAY REPEAT IN TWO HOURS) fexofenadin 2021-0 Yes [id number] 180mg Take 1 [facility] e (LUIS 6-13 tablet by ity of ALLERGY) 00:00: mouth [place] 180 mg 00 daily. Medical tablet Branch fexofenadin 2021-0 Yes [id number] 180mg Take 1 [facility] e (LUIS 6-13 tablet by ity of ALLERGY) 00:00: mouth [place] 180 mg 00 daily. Medical tablet Branch fexofenadin 2021-0 Yes [id number] 180mg Take 1 [facility] e (LUIS 6-13 tablet by ity of ALLERGY) 00:00: mouth [place] 180 mg 00 daily. Medical tablet Branch fexofenadin 2021-0 Yes [id number] 180mg Take 1 [facility] e (LUIS 6-13 tablet by ity of ALLERGY) 00:00: mouth [place] 180 mg 00 daily. Medical tablet Branch fexofenadin 2021-0 Yes [id number] 180mg Take 1 [facility] e (LUIS 6-13 tablet by ity of ALLERGY) 00:00: mouth [place] 180 mg 00 daily. Medical tablet Branch fexofenadin 2021-0 Yes [id number] 180mg Take 1 [facility] e (LUIS 6-13 tablet by ity of ALLERGY) 00:00: mouth [place] 180 mg 00 daily. Medical tablet Branch fexofenadin 2021-0 Yes [id number] 180mg Take 1 [facility] e (LUIS 6-13 tablet by ity of ALLERGY) 00:00: mouth [place] 180 mg 00 daily. Medical tablet Branch fexofenadin 0 Yes [id number] 180mg Take 1 [facility] e (LUIS 6-13 tablet by ity of ALLERGY) 00:00: mouth [place] 180 mg 00 daily. Medical tablet Branch fexofenadin Yes [id number] 180mg Take 1 [facility] e (LUIS 6-13 tablet by ity of ALLERGY) 00:00: mouth [place] 180 mg 00 daily. Medical tablet Branch fexofenadin 0 Yes [id number] 180mg Take 1 [facility] e (LUIS 6-13 tablet by ity of ALLERGY) 00:00: mouth [place] 180 mg 00 daily. Medical tablet Branch fexofenadin Yes [id number] 180mg Take 1 [facility] e (LUIS 6-13 tablet by ity of ALLERGY) 00:00: mouth [place] 180 mg 00 daily. Medical tablet Branch fexofenadin Yes [id number] 180mg Take 1 [facility] e (LUIS 6-13 tablet by ity of ALLERGY) 00:00: mouth [place] 180 mg 00 daily. Medical tablet Branch fexofenadin Yes [id number] 180mg Take 1 [facility] e (LUIS 6-13 tablet by ity of ALLERGY) 00:00: mouth [place] 180 mg 00 daily. Medical tablet Branch fexofenadin Yes [id number] 180mg Take 1 [facility] e (LUIS 6-13 tablet by ity of ALLERGY) 00:00: mouth [place] 180 mg 00 daily. Medical tablet Branch fexofenadin Yes [id number] 180mg Take 1 [facility] e (LUIS 6-13 tablet by ity of ALLERGY) 00:00: mouth [place] 180 mg 00 daily. Medical tablet Branch fexofenadin Yes [id number] 180mg Take 1 [facility] e (LUIS 6-13 tablet by ity of ALLERGY) 00:00: mouth [place] 180 mg 00 daily. Medical tablet Branch fexofenadin Yes [id number] 180mg Take 1 [facility] e (LUIS 6-13 tablet by ity of ALLERGY) 00:00: mouth [place] 180 mg 00 daily. Medical tablet Branch fexofenadin Yes [id number] 180mg Take 1 [facility] e (LUIS 6-13 tablet by ity of ALLERGY) 00:00: mouth [place] 180 mg 00 daily. Medical tablet Branch fexofenadin 2021-0 Yes [id number] 180mg Take 1 [facility] e (LUIS 6-13 tablet by ity of ALLERGY) 00:00: mouth [place] 180 mg 00 daily. Medical tablet Branch fexofenadin 0 Yes [id number] 180mg Take 1 [facility] e (LUIS 6-13 tablet by ity of ALLERGY) 00:00: mouth [place] 180 mg 00 daily. Medical tablet Branch fexofenadin 0 Yes [id number] 180mg Take 1 [facility] e (LUIS 6-13 tablet by ity of ALLERGY) 00:00: mouth [place] 180 mg 00 daily. Medical tablet Branch fexofenadin Yes [id number] 180mg Take 1 [facility] e (LUIS 6-13 tablet by ity of ALLERGY) 00:00: mouth [place] 180 mg 00 daily. Medical tablet Branch fexofenadin Yes [id number] 180mg Take 1 [facility] e (LUIS 6-13 tablet by ity of ALLERGY) 00:00: mouth [place] 180 mg 00 daily. Medical tablet Branch fexofenadin Yes [id number] 180mg Take 1 [facility] e (LUIS 6-13 tablet by ity of ALLERGY) 00:00: mouth [place] 180 mg 00 daily. Medical tablet Branch fexofenadin Yes [id number] 180mg Take 1 [facility] e (LUIS 6-13 tablet by ity of ALLERGY) 00:00: mouth [place] 180 mg 00 daily. Medical tablet Branch fexofenadin 0 Yes [id number] 180mg Take 1 [facility] e (LUIS 6-13 tablet by ity of ALLERGY) 00:00: mouth [place] 180 mg 00 daily. Medical tablet Branch fexofenadin 0 Yes [id number] 180mg Take 1 [facility] e (LUIS 6-13 tablet by ity of ALLERGY) 00:00: mouth [place] 180 mg 00 daily. Medical tablet Branch fexofenadin 0 Yes [id number] 180mg Take 1 [facility] e (LUIS 6-13 tablet by ity of ALLERGY) 00:00: mouth [place] 180 mg 00 daily. Medical tablet Branch fexofenadin 0 Yes [id number] 180mg Take 1 [facility] e (LUIS 6-13 tablet by ity of ALLERGY) 00:00: mouth [place] 180 mg 00 daily. Medical tablet Branch fexofenadin 0 Yes [id number] 180mg Take 1 [facility] e (LUIS 6-13 tablet by ity of ALLERGY) 00:00: mouth [place] 180 mg 00 daily. Medical tablet Branch fexofenadin 0 Yes [id number] 180mg Take 1 [facility] e (LUIS 6-13 tablet by ity of ALLERGY) 00:00: mouth [place] 180 mg 00 daily. Medical tablet Branch fexofenadin 0 Yes [id number] 180mg Take 1 [facility] e (LUIS 6-13 tablet by ity of ALLERGY) 00:00: mouth [place] 180 mg 00 daily. Medical tablet Branch fexofenadin 0 Yes [id number] 180mg Take 1 [facility] e (LUIS 6-13 tablet by ity of ALLERGY) 00:00: mouth [place] 180 mg 00 daily. Medical tablet Branch fexofenadin Yes [id number] 180mg Take 1 [facility] e (LUIS 6-13 tablet by ity of ALLERGY) 00:00: mouth [place] 180 mg 00 daily. Medical tablet Branch fexofenadin Yes [id number] 180mg Take 1 [facility] e (LUIS 6-13 tablet by ity of ALLERGY) 00:00: mouth [place] 180 mg 00 daily. Medical tablet Branch fexofenadin Yes [id number] 180mg Take 1 [facility] e (LUIS 6-13 tablet by ity of ALLERGY) 00:00: mouth [place] 180 mg 00 daily. Medical tablet Branch fexofenadin 2021-0 Yes [id number] 180mg Take 1 [facility] e (LUIS 6-13 tablet by ity of ALLERGY) 00:00: mouth [place] 180 mg 00 daily. Medical tablet Branch fexofenadin 0 Yes [id number] 180mg Take 1 [facility] e (LUIS 6-13 tablet by ity of ALLERGY) 00:00: mouth [place] 180 mg 00 daily. Medical tablet Branch fexofenadin 0 Yes [id number] 180mg Take 1 [facility] e (LUIS 6-13 tablet by ity of ALLERGY) 00:00: mouth [place] 180 mg 00 daily. Medical tablet Branch fexofenadin 0 Yes [id number] 180mg Take 1 [facility] e (LUIS 6-13 tablet by ity of ALLERGY) 00:00: mouth [place] 180 mg 00 daily. Medical tablet Branch fexofenadin Yes [id number] 180mg Take 1 [facility] e (LUIS 6-13 tablet by ity of ALLERGY) 00:00: mouth [place] 180 mg 00 daily. Medical tablet Branch fexofenadin Yes [id number] 180mg Take 1 [facility] e (LUIS 6-13 tablet by ity of ALLERGY) 00:00: mouth [place] 180 mg 00 daily. Medical tablet Branch fexofenadin Yes [id number] 180mg Take 1 [facility] e (LUIS 6-13 tablet by ity of ALLERGY) 00:00: mouth [place] 180 mg 00 daily. Medical tablet Branch fexofenadin Yes [id number] 180mg Take 1 [facility] e (LUIS 6-13 tablet by ity of ALLERGY) 00:00: mouth [place] 180 mg 00 daily. Medical tablet Branch fexofenadin Yes [id number] 180mg Take 1 [facility] e (LUIS 6-13 tablet by ity of ALLERGY) 00:00: mouth [place] 180 mg 00 daily. Medical tablet Branch fexofenadin Yes [id number] 180mg Take 1 [facility] e (LUIS 6-13 tablet by ity of ALLERGY) 00:00: mouth [place] 180 mg 00 daily. Medical tablet Branch fexofenadin Yes [id number] 180mg Take 1 [facility] e (LUIS 6-13 tablet by ity of ALLERGY) 00:00: mouth [place] 180 mg 00 daily. Medical tablet Branch fexofenadin Yes [id number] 180mg Take 1 [facility] e (LUIS 6-13 tablet by ity of ALLERGY) 00:00: mouth [place] 180 mg 00 daily. Medical tablet Branch fexofenadin Yes [id number] 180mg Take 1 [facility] e (LUIS 6-13 tablet by ity of ALLERGY) 00:00: mouth [place] 180 mg 00 daily. Medical tablet Branch fexofenadin Yes [id number] 180mg Take 1 [facility] e (LUIS 6-13 tablet by ity of ALLERGY) 00:00: mouth [place] 180 mg 00 daily. Medical tablet Branch fexofenadin Yes [id number] 180mg Take 1 [facility] e (LUIS 6-13 tablet by ity of ALLERGY) 00:00: mouth [place] 180 mg 00 daily. Medical tablet Branch fexofenadin Yes [id number] 180mg Take 1 [facility] e (LUIS 6-13 tablet by ity of ALLERGY) 00:00: mouth [place] 180 mg 00 daily. Medical tablet Branch fexofenadin Yes [id number] 180mg Take 1 [facility] e (LUIS 6-13 tablet by ity of ALLERGY) 00:00: mouth [place] 180 mg 00 daily. Medical tablet Branch fexofenadin Yes [id number] 180mg Take 1 [facility] e (LUIS 6-13 tablet by ity of ALLERGY) 00:00: mouth [place] 180 mg 00 daily. Medical tablet Branch fexofenadin Yes [id number] 180mg Take 1 [facility] e (LUIS 6-13 tablet by ity of ALLERGY) 00:00: mouth [place] 180 mg 00 daily. Medical tablet Branch fexofenadin Yes [id number] 180mg Take 1 [facility] e (LUIS 6-13 tablet by ity of ALLERGY) 00:00: mouth [place] 180 mg 00 daily. Medical tablet Branch fexofenadin Yes [id number] 180mg Take 1 [facility] e (LUIS 6-13 tablet by ity of ALLERGY) 00:00: mouth [place] 180 mg 00 daily. Medical tablet Branch fexofenadin Yes [id number] 180mg Take 1 [facility] e (LUIS 6-13 tablet by ity of ALLERGY) 00:00: mouth [place] 180 mg 00 daily. Medical tablet Branch fexofenadin Yes [id number] 180mg Take 1 [facility] e (LUIS 6-13 tablet by ity of ALLERGY) 00:00: mouth [place] 180 mg 00 daily. Medical tablet Branch fexofenadin 0 Yes [id number] 180mg Take 1 [facility] e (LUIS 6-13 tablet by ity of ALLERGY) 00:00: mouth [place] 180 mg 00 daily. Medical tablet Branch fexofenadin Yes [id number] 180mg Take 1 [facility] e (LUIS 6-13 tablet by ity of ALLERGY) 00:00: mouth [place] 180 mg 00 daily. Medical tablet Branch fexofenadin Yes [id number] 180mg Take 1 [facility] e (LUIS 6-13 tablet by ity of ALLERGY) 00:00: mouth [place] 180 mg 00 daily. Medical tablet Branch fexofenadin Yes [id number] 180mg Take 1 [facility] e (LUIS 6-13 tablet by ity of ALLERGY) 00:00: mouth [place] 180 mg 00 daily. Medical tablet Branch fexofenadin Yes [id number] 180mg Take 1 [facility] e (LUIS 6-13 tablet by ity of ALLERGY) 00:00: mouth [place] 180 mg 00 daily. Medical tablet Branch rosuvastati Yes [id number] 10mg Take 1 [facility] n 10 mg 6-08 tablet by ity of tablet 00:00: mouth at [place] 00 bedtime. Medical Branch rosuvastati Yes [id number] 10mg Take 1 [facility] n 10 mg 6-08 tablet by ity of tablet 00:00: mouth at [place] 00 bedtime. Medical Branch rosuvastati Yes [id number] 10mg Take 1 [facility] n 10 mg 6-08 tablet by ity of tablet 00:00: mouth at [place] 00 bedtime. Medical Branch rosuvastati Yes [id number] 10mg Take 1 [facility] n 10 mg 6-08 tablet by ity of tablet 00:00: mouth at [place] 00 bedtime. Medical Branch rosuvastati Yes [id number] 10mg Take 1 [facility] n 10 mg 6-08 tablet by ity of tablet 00:00: mouth at [place] 00 bedtime. Medical Branch rosuvastati Yes [id number] 10mg Take 1 [facility] n 10 mg 6-08 tablet by ity of tablet 00:00: mouth at [place] 00 bedtime. Medical Branch rosuvastati Yes [id number] 10mg Take 1 [facility] n 10 mg 6-08 tablet by ity of tablet 00:00: mouth at [place] 00 bedtime. Medical Branch rosuvastati Yes [id number] 10mg Take 1 [facility] n 10 mg 6-08 tablet by ity of tablet 00:00: mouth at [place] 00 bedtime. Medical Branch rosuvastati Yes [id number] 10mg Take 1 [facility] n 10 mg 6-08 tablet by ity of tablet 00:00: mouth at [place] 00 bedtime. Medical Branch rosuvastati 2021- Yes [id number] 10mg Take 1 [facility] n 10 mg 6-08 tablet by ity of tablet 00:00: mouth at [place] bedtime. Medical Branch rosuvastati Yes [id number] 10mg Take 1 [facility] n 10 mg 6-08 tablet by ity of tablet 00:00: mouth at [place] bedtime. Medical Branch rosuvastati 2021-0 Yes [id number] 10mg Take 1 [facility] n 10 mg 6-08 tablet by ity of tablet 00:00: mouth at [place] bedtime. Medical Branch rosuvastati 2021- Yes [id number] 10mg Take 1 [facility] n 10 mg 6-08 tablet by ity of tablet 00:00: mouth at [place] bedtime. Medical Branch rosuvastati Yes [id number] 10mg Take 1 [facility] n 10 mg 6-08 tablet by ity of tablet 00:00: mouth at [place] bedtime. Medical Branch rosuvastati 2021- Yes [id number] 10mg Take 1 [facility] n 10 mg 6-08 tablet by ity of tablet 00:00: mouth at [place] bedtime. Medical Branch rosuvastati Yes [id number] 10mg Take 1 [facility] n 10 mg 6-08 tablet by ity of tablet 00:00: mouth at [place] bedtime. Medical Branch rosuvastati Yes [id number] 10mg Take 1 [facility] n 10 mg 6-08 tablet by ity of tablet 00:00: mouth at [place] bedtime. Medical Branch rosuvastati 2021-0 Yes [id number] 10mg Take 1 [facility] n 10 mg 6-08 tablet by ity of tablet 00:00: mouth at [place] bedtime. Medical Branch rosuvastati 2021-0 Yes [id number] 10mg Take 1 [facility] n 10 mg 6-08 tablet by ity of tablet 00:00: mouth at [place] bedtime. Medical Branch rosuvastati 2021-0 Yes [id number] 10mg Take 1 [facility] n 10 mg 6-08 tablet by ity of tablet 00:00: mouth at [place] bedtime. Medical Branch rosuvastati 2021-0 Yes [id number] 10mg Take 1 [facility] n 10 mg 6-08 tablet by ity of tablet 00:00: mouth at [place] [address] bedtime. Medical Branch rosuvastati 2021- Yes [id number] 10mg Take 1 [facility] n 10 mg 6-08 tablet by ity of tablet 00:00: mouth at [place] bedtime. Medical Branch rosuvastati 2021-0 Yes [id number] 10mg Take 1 [facility] n 10 mg 6-08 tablet by ity of tablet 00:00: mouth at [place] bedtime. Medical Branch rosuvastati 2021-0 Yes [id number] 10mg Take 1 [facility] n 10 mg 6-08 tablet by ity of tablet 00:00: mouth at [place] bedtime. Medical Branch rosuvastati 2021- Yes [id number] 10mg Take 1 [facility] n 10 mg 6-08 tablet by ity of tablet 00:00: mouth at [place] bedtime. Medical Branch rosuvastati Yes [id number] 10mg Take 1 [facility] n 10 mg 6-08 tablet by ity of tablet 00:00: mouth at [place] bedtime. Medical Branch rosuvastati 2021-0 Yes [id number] 10mg Take 1 [facility] n 10 mg 6-08 tablet by ity of tablet 00:00: mouth at [place] bedtime. Medical Branch rosuvastati Yes [id number] 10mg Take 1 [facility] n 10 mg 6-08 tablet by ity of tablet 00:00: mouth at [place] [address] bedtime. Medical Branch rosuvastati Yes [id number] 10mg Take 1 [facility] n 10 mg 6-08 tablet by ity of tablet 00:00: mouth at [place] [address] bedtime. Medical Branch rosuvastati 2021-0 Yes [id number] 10mg Take 1 [facility] n 10 mg 6-08 tablet by ity of tablet 00:00: mouth at [place] [address] bedtime. Medical Branch rosuvastati 2021-0 Yes [id number] 10mg Take 1 [facility] n 10 mg 6-08 tablet by ity of tablet 00:00: mouth at [place] [address] bedtime. Medical Branch rosuvastati 2021-0 Yes [id number] 10mg Take 1 [facility] n 10 mg 6-08 tablet by ity of tablet 00:00: mouth at [place] [address] bedtime. Medical Branch rosuvastati 2021-0 Yes [id number] 10mg Take 1 [facility] n 10 mg 6-08 tablet by ity of tablet 00:00: mouth at [place] [address] bedtime. Medical Branch rosuvastati 2021- Yes [id number] 10mg Take 1 [facility] n 10 mg 6-08 tablet by ity of tablet 00:00: mouth at [place] bedtime. Medical Branch rosuvastati 2021-0 Yes [id number] 10mg Take 1 [facility] n 10 mg 6-08 tablet by ity of tablet 00:00: mouth at [place] bedtime. Medical Branch rosuvastati 2021-0 Yes [id number] 10mg Take 1 [facility] n 10 mg 6-08 tablet by ity of tablet 00:00: mouth at [place] bedtime. Medical Branch rosuvastati 2021-0 Yes [id number] 10mg Take 1 [facility] n 10 mg 6-08 tablet by ity of tablet 00:00: mouth at [place] bedtime. Medical Branch rosuvastati Yes [id number] 10mg Take 1 [facility] n 10 mg 6-08 tablet by ity of tablet 00:00: mouth at [place] bedtime. Medical Branch rosuvastati 2021-0 Yes [id number] 10mg Take 1 [facility] n 10 mg 6-08 tablet by ity of tablet 00:00: mouth at [place] bedtime. Medical Branch rosuvastati Yes [id number] 10mg Take 1 [facility] n 10 mg 6-08 tablet by ity of tablet 00:00: mouth at [place] [address] bedtime. Medical Branch rosuvastati Yes [id number] 10mg Take 1 [facility] n 10 mg 6-08 tablet by ity of tablet 00:00: mouth at [place] [address] bedtime. Medical Branch rosuvastati 2021-0 Yes [id number] 10mg Take 1 [facility] n 10 mg 6-08 tablet by ity of tablet 00:00: mouth at [place] [address] bedtime. Medical Branch rosuvastati 2021-0 Yes [id number] 10mg Take 1 [facility] n 10 mg 6-08 tablet by ity of tablet 00:00: mouth at [place] bedtime. Medical Branch rosuvastati 2021-0 Yes [id number] 10mg Take 1 [facility] n 10 mg 6-08 tablet by ity of tablet 00:00: mouth at [place] [address] bedtime. Medical Branch rosuvastati 2021-0 Yes [id number] 10mg Take 1 [facility] n 10 mg 6-08 tablet by ity of tablet 00:00: mouth at [place] 00 bedtime. Medical Branch rosuvastati 2021- No [id number] 10mg Take 1 [facility] n 10 mg 03-03 10-13 tablet by ity of tablet 00:00: 00:00 mouth at [place] 00 :00 bedtime. Medical Branch water for 2021- No PRN, [facility] irrigation 03-02 Starting ity of irrigation 14:20: 15:50 on Tue [place] solution 00 :27 03/02/22 at Medica l 0920, Branch Until Tue03/02/22 at 1050, Routine, Intra-op simethicone 2021- No PRN, [facility] [place] rs (GAS RELIEF 03-02 Starting ity of (SIMETHICON 14:20: 15:50 on Tue [place] as E)) 40 00 :03/02/22 at Medical mg/0.6 mL 0920, Branch drops Until Tue03/02/22 at 1050, Routine, Intra-op lactated 2021- No 1000mL at 42 [facility] [place] rs ringers IV 03-02 06-07 mL/hr, ity of infusion 12:45: 12:59 1,000 mL, [place] as 1,000 mL 00 :00 IV Medical Infusion, Branch ONCE, 1 dose, On Tue03/02/22 at 0745, Routine, DSU Pre-op lactated 2021- No 1000mL at 42 [facility] [place] rs ringers IV 03-02 06-07 mL/hr, ity of infusion 12:45: 12:59 1,000 mL, [place] 1,000 mL 00 :00 IV Medical Infusion, Branch ONCE, 1 dose, On Tue03/02/22 at 0745, Routine, DSU Pre-op FOLIC ACID Yes Take by [facility] ORAL 03-02 mouth ity of 11:23: daily. [address] Branch MULTIVIT Yes Take by [facility] &MINERALS/F 03-02 mouth. ity of ERROUS FUM 11:23: [place] ([place] [address] Medical VITAMIN Branch ORAL) METHYLCELLU Yes [facility] [place] [facility] s LOSE (FIBER 03-02 ity of THERAPY 11:23: [facility]) 09 Medical Branch DOCUSATE Yes Take by [facility] [place] [facility] s SODIUM 6-07 mouth. ity of (COLACE [...] Branch unit tablet CRANBERRY Yes Take by [facility] [place] rs FRUIT 6-07 mouth ity of EXTRACT 11:23: daily. [place] ([place] Medical ORAL) Branch CALCIUM Yes Take by [facility] ORAL 6-07 mouth ity of 11:23: daily. [place] Medical Branch DOCOSAHEXAN Yes 1000mg Take 1,000 [facility] OIC 6-07 mg by ity of ACID/EPA 11:23: mouth [place] (FISH OIL 09 daily. Medical ORAL) Branch BIOTIN ORAL Yes Take by Uni vers 6-07 mouth. ity of 11:23: [place] [address] Medical Branch FOLIC ACID Yes Take by [facility] ORAL 6-07 mouth ity of 11:23: daily. [place] Medical Branch MULTIVIT Yes Take by [facility] [place] [facility] s &MINERALS/F 6-07 mouth. ity of ERROUS FUM 11:23: [place] (MULTI 09 Medical VITAMIN Branch ORAL) METHYLCELLU Yes [facility] [place] [facility] s LOSE (FIBER 6-07 ity of THERAPY 11:23: [place] MISC) 09 Medical Branch DOCUSATE Yes Take by [facility] [place] [facility] s SODIUM 6-07 mouth. ity of (COLACE [...] 6-07 mouth ity of EXTRACT 11:23: daily. [place] ([place] Medical ORAL) Branch CALCIUM Yes Take by [facility] ORAL 6-07 mouth ity of 11:23: daily. [place] Medical Branch DOCOSAHEXAN Yes 1000mg Take 1,000 [facility] OIC 6-07 mg by ity of ACID/EPA 11:23: mouth [place] (FISH OIL 09 daily. Medical ORAL) Branch BIOTIN ORAL Yes Take by Uni vers 6-07 mouth. ity of 11:23: [place] Medical Branch FOLIC ACID Yes Take by Univ ers ORAL 6-07 mouth ity of 11:23: daily. [place] Medical Branch MULTIVIT Yes Take by Univer s &MINERALS/F 6-07 mouth. ity of ERROUS FUM 11:23: [place] (MULTI 09 Medical VITAMIN Branch ORAL) METHYLCELLU Yes Univer s LOSE (FIBER 6-07 ity of THERAPY 11:23: [place] MISC) Medical Branch DOCUSATE Yes Take by Univer s SODIUM 6-07 mouth. ity of (COLACE 11:23: [place] ORAL) Medical Branch vitamin C Yes 1000mg Take 1,000 [facility] with derrell 6-07 mg by ity of hips 11:23: mouth [place] (VITAMIN C) 09 daily. Medica l 1,000 mg Branch tablet cholecalcif Yes 1000U Take 1,000 [facility] edmar, 6-07 Units by ity of vitamin D3, 11:23: mouth [place] (VITAMIN 09 daily. Medical D3) 1,000 Branch unit tablet CRANBERRY Yes Take by [facility] FRUIT 6-07 mouth ity of EXTRACT 11:23: daily. [place] ([place] Medical ORAL) Branch CALCIUM Yes Take by [facility] ORAL 6-07 mouth ity of 11:23: daily. [place] Medical Branch DOCOSAHEXAN Yes 1000mg Take 1,000 [facility] OIC 6-07 mg by ity of ACID/EPA 11:23: mouth [place] (FISH OIL 09 daily. Medical ORAL) Branch BIOTIN ORAL Yes Take by Uni vers 6-07 mouth. ity of 11:23: [place] [address] Medical Branch FOLIC ACID Yes Take by [facility] ers ORAL 6-07 mouth ity of 11:23: daily. [place] [address] Medical Branch MULTIVIT Yes Take by Univer s &MINERALS/F 6-07 mouth. ity of ERROUS FUM 11:23: [place] (MULTI 09 Medical VITAMIN Branch ORAL) METHYLCELLU Yes Univer s LOSE (FIBER 6-07 ity of THERAPY 11:23: [facility]) 09 Medical Branch DOCUSATE Yes Take by [facility] SODIUM 6-07 mouth. ity of (COLACE 11:23: [place] ORAL) 09 Medical Branch vitamin C Yes 1000mg Take 1,000 [facility] with derrell 6-07 mg by ity of hips 11:23: mouth [place] (VITAMIN C) 09 daily. Medica l 1,000 mg Branch tablet cholecalcif Yes 1000U Take 1,000 [facility] edmar, 6-07 Units by ity of vitamin D3, 11:23: mouth [place] (VITAMIN 09 daily. Medical D3) 1,000 Branch unit tablet CRANBERRY Yes Take by [facility] [place] rs FRUIT 6-07 mouth ity of EXTRACT 11:23: daily. [place] (CRANBERRY 09 Medical ORAL) Branch CALCIUM Yes Take by [facility] ORAL 6-07 mouth ity of 11:23: daily. [place] Medical Branch DOCOSAHEXAN Yes 1000mg Take 1,000 [facility] OIC 6-07 mg by ity of ACID/EPA 11:23: mouth [place] (FISH OIL 09 daily. Medical ORAL) Branch BIOTIN ORAL Yes Take by Uni vers 6-07 mouth. ity of 11:23: [place] [address] Medical Branch FOLIC ACID Yes Take by [facility] ORAL 6-07 mouth ity of 11:23: daily. [place] [address] Medical Branch MULTIVIT Yes Take by [facility] &MINERALS/F 6-07 mouth. ity of ERROUS FUM 11:23: [place] (MULTI 09 Medical VITAMIN Branch ORAL) METHYLCELLU Yes Univer s LOSE (FIBER 6-07 ity of THERAPY 11:23: [place] MIS) 09 Medical Branch DOCUSATE Yes Take by [facility] [place] [facility] s SODIUM 6-07 mouth. ity of (COLACE [...] 6-07 mouth ity of EXTRACT 11:23: daily. [place] (CRANBERRY 09 Medical ORAL) Branch CALCIUM Yes Take by [facility] ORAL 6-07 mouth ity of 11:23: daily. [place] Medical Branch DOCOSAHEXAN Yes 1000mg Take 1,000 [facility] OIC 6-07 mg by ity of ACID/EPA 11:23: mouth [place] (FISH OIL 09 daily. Medical ORAL) Branch BIOTIN ORAL Yes Take by Uni vers 6-07 mouth. ity of 11:23: Medical Branch FOLIC ACID Yes Take by Univ ers ORAL 6-07 mouth ity of 11:23: daily. [place] Medical Branch MULTIVIT Yes Take by Univer s &MINERALS/F 6-07 mouth. ity of ERROUS FUM 11:23: [place] (MULTI 09 Medical VITAMIN Branch ORAL) METHYLCELLU Yes Univer s LOSE (FIBER 6-07 ity of THERAPY 11:23: [place] MISC) 09 Medical Branch DOCUSATE Yes Take [...] 6-07 mouth ity of EXTRACT 11:23: daily. [place] (CRANBERRY 09 Medical ORAL) Branch CALCIUM Yes [...] ORAL 6-07 mouth ity of 11:23: daily. [place] Medical Branch MULTIVIT Yes Take by Univer s &MINERALS/F 6-07 mouth. ity of ERROUS FUM 11:23: [place] (MULTI 09 Medical VITAMIN Branch ORAL) METHYLCELLU Yes [facility] LOSE (FIBER 6-07 ity of THERAPY 11:23: [place] MISC) 09 Medical Branch DOCUSATE Yes Take by [facility] SODIUM 6-07 mouth. ity of (COLACE [...] Branch unit tablet CRANBERRY Yes Take by [facility] [place] rs FRUIT 6-07 mouth ity of EXTRACT 11:23: daily. [place] (CRANBERRY Medical ORAL) Branch CALCIUM Yes Take by [facility] ORAL 6-07 mouth ity of 11:23: daily. [place] [facility] DOCOSAHEXAN Yes 1000mg Take 1,000 [...] 6-07 mouth. ity of ERROUS FUM 11:23: [place] (MULTI 09 Medical VITAMIN Branch ORAL) METHYLCELLU Yes [facility] LO[facility] (FIBER 6-07 ity of THERAPY 11:23: [facility]) Medical Branch DOCUSATE Yes Take by [facility] SODIUM 6-07 mouth. ity of (COLACE 11:23: [place] ORAL) 09 Medical Branch vitamin C Yes 1000mg Take 1,000 [facility] with derrell 6-07 mg by ity of hips 11:23: mouth [place] (VITAMIN C) 09 daily. Medica l 1,000 mg Branch tablet cholecalcif Yes 1000U Take 1,000 [facility] edmar, 6-07 Units by ity of vitamin D3, 11:23: mouth [place] (VITAMIN 09 daily. Medical D3) 1,000 Branch unit tablet CRANBERRY Yes Take by [facility] [place] rs FRUIT 6-07 mouth ity of EXTRACT 11:23: daily. [place] (CRANBERRY 09 Medical ORAL) Branch CALCIUM Yes Take by [facility] ORAL 6-07 mouth ity of 11:23: daily. [place] [address] Medical Branch DOCOSAHEXAN Yes 1000mg Take 1,000 [facility] OIC 6-07 mg by ity of ACID/EPA 11:23: mouth [place] (FISH OIL 09 daily. Medical ORAL) Branch BIOTIN ORAL Yes Take by Uni vers 6-07 mouth. ity of 11:23: [place] [address] Medical Branch FOLIC ACID Yes [facility] ORAL 6-07 mouth ity of 11:23: daily. [place] [address] Medical Branch MULTIVIT Yes Take by [facility] &MINERALS/F 6-07 mouth. ity of ERROUS FUM 11:23: [place] (MULTI 09 Medical VITAMIN Branch ORAL) METHYLCELLU 0 Yes [facility] LOSE (FIBER 6-07 ity of THERAPY 11:23: [facility]) Medical Branch DOCUSATE 0 Yes Take by [facility] SODIUM 6-07 mouth. ity of (COLACE [...] unit tablet CRANBERRY 2021-0 Yes Take by [facility] FRUIT 6-07 mouth ity of EXTRACT 11:23: daily. [place] (CRANBERRY Medical ORAL) Branch CALCIUM 0 Yes Take by [facility] ORAL 6-07 mouth ity of 11:23: daily. [place] [facility] DOCOSAHEXAN Yes 1000mg Take 1,000 [facility] OIC 6-07 mg by ity of ACID/EPA 11:23: mouth [place] (FISH OIL 09 daily. Medical ORAL) Branch BIOTIN ORAL 0 Yes Take by [facility] vers 6-07 mouth. ity of 11:23: [place] [facility] FOLIC ACID Yes Take by [facility] ers ORAL 6-07 mouth ity of 11:23: daily. [place] [facility] MULTIVIT Yes Take by [facility] &MINERALS/F 6-07 mouth. ity of ERROUS FUM 11:23: [place] (MULTI 09 Medical VITAMIN Branch ORAL) METHYLCELLU 0 Yes [facility] s LOSE (FIBER 6-07 ity of THERAPY 11:23: [place] MISC) 09 Medical Branch DOCUSATE Yes Take by [facility] SODIUM 6-07 mouth. ity of (COLACE 11:23: [place] ORAL) 09 Medical Branch vitamin C Yes 1000mg Take 1,000 [facility] with derrell 6-07 mg by ity of hips 11:23: mouth [place] (VITAMIN C) 09 daily. Medica l 1,000 mg Branch tablet cholecalcif 2021-0 Yes 1000U Take 1,000 [facility] edmar, 6-07 Units by ity of vitamin D3, 11:23: mouth [place] (VITAMIN 09 daily. Medical D3) 1,000 Branch unit tablet CRANBERRY 2021-0 Yes Take by [facility] FRUIT 6-07 mouth ity of EXTRACT 11:23: daily. [place] (CRANBERRY Medical ORAL) Branch CALCIUM 0 Yes Take by [facility] ORAL 6-07 mouth ity of 11:23: daily. [place] [facility] DOCOSAHEXAN 2022-0 Yes 1000mg Take 1,000 [facility] OIC 6-07 mg by ity of ACID/EPA 11:23: mouth [place] (FISH OIL 09 daily. Medical ORAL) Branch BIOTIN ORAL Yes Take by [facility] vers 6-07 mouth. ity of 11:23: Medical Branch FOLIC ACID Yes Take by [facility] ers ORAL 6-07 mouth ity of 11:23: daily. [place] [facility] MULTIVIT Yes Take by [facility] s &MINERALS/F 6-07 mouth. ity of ERROUS FUM 11:23: [place] (MULTI 09 Medical VITAMIN Branch ORAL) METHYLCELLU Yes [facility] LOSE (FIBER 6-07 ity of THERAPY 11:23: [place] MISC) 09 Medical Branch DOCUSATE Yes Take by [facility] SODIUM 6-07 mouth. ity of (COLACE 11:23: [place] ORAL) 09 Medical Branch vitamin C Yes 1000mg Take 1,000 [facility] with derrell 6-07 mg by ity of hips 11:23: mouth [place] (VITAMIN C) 09 daily. Medica l 1,000 mg Branch tablet cholecalcif Yes 1000U Take 1,000 [facility] edmar, 6-07 Units by ity of vitamin D3, 11:23: mouth [place] (VITAMIN 09 daily. Medical D3) 1,000 Branch unit tablet CRANBERRY Yes Take by [facility] rs FRUIT 6-07 mouth ity of EXTRACT 11:23: daily. [place] (CRANBERRY Medical ORAL) Branch CALCIUM Yes Take by [facility] ORAL 6-07 mouth ity of 11:23: daily. [place] [facility] DOCOSAHEXAN Yes 1000mg Take 1,000 [facility] OIC 6-07 mg by ity of ACID/EPA 11:23: mouth [place] (FISH OIL 09 daily. Medical ORAL) Branch BIOTIN ORAL Yes Take by [facility] vers 6-07 mouth. ity of 11:23: Medical Branch FOLIC ACID Yes Take by [facility] ers ORAL 6-07 mouth ity of 11:23: daily. [place] [facility] MULTIVIT Yes Take by [facility] s &MINERALS/F 6-07 mouth. ity of ERROUS FUM 11:23: [place] (MULTI 09 Medical VITAMIN Branch ORAL) METHYLCELLU Yes [facility] LOSE (FIBER 6-07 ity of THERAPY 11:23: [facility]) 09 Medical Branch DOCUSATE Yes Take by [facility] SODIUM 6-07 mouth. ity of (COLACE [...] Branch unit tablet CRANBERRY Yes Take by [facility] FRUIT 6-07 mouth ity of EXTRACT 11:23: daily. [place] (CRANBERRY 09 Medical ORAL) Branch CALCIUM Yes Take by [facility] ORAL 6-07 mouth ity of 11:23: daily. [place] [facility] DOCOSAHEXAN Yes 1000mg Take 1,000 [facility] OIC 6-07 mg by ity of ACID/EPA 11:23: mouth [place] (FISH OIL 09 daily. Medical ORAL) Branch BIOTIN ORAL Yes Take by Uni vers 6-07 mouth. ity of 11:23: [place] [address] Medical Branch FOLIC ACID Yes Take by [facility] ers ORAL 6-07 mouth ity of 11:23: daily. [place] [address] Medical Branch MULTIVIT Yes Take by [facility] [place] [facility] s &MINERALS/F 6-07 mouth. ity of ERROUS FUM 11:23: [place] (MULTI 09 Medical VITAMIN Branch ORAL) METHYLCELLU Yes [facility]iver s LOSE (FIBER 6-07 ity of THERAPY 11:23: [facility]) 09 Medical Branch DOCUSATE 0 Yes Take by [facility] SODIUM 6-07 mouth. ity of (COLACE [...] Branch unit tablet CRANBERRY Yes Take by [facility] FRUIT 6-07 mouth ity of EXTRACT 11:23: daily. [place] (CRANBERRY Medical ORAL) Branch CALCIUM Yes Take by [facility] ORAL 6-07 mouth ity of 11:23: daily. [place] [facility] DOCOSAHEXAN Yes 1000mg Take 1,000 [facility] OIC 6-07 mg by ity of ACID/EPA 11:23: mouth [place] (FISH OIL 09 daily. Medical ORAL) Branch BIOTIN ORAL Yes Take by [facility] vers 6-07 mouth. ity of 11:23: Medical Branch FOLIC ACID Yes Take by [facility] ers ORAL 6-07 mouth ity of 11:23: daily. [place] [facility] MULTIVIT Yes Take by [facility] s &MINERALS/F 6-07 mouth. ity of ERROUS FUM 11:23: [place] (MULTI 09 Medical VITAMIN Branch ORAL) METHYLCELLU Yes [facility] LOSE (FIBER 6-07 ity of THERAPY 11:23: [place] MISC) 09 Medical Branch DOCUSATE Yes Take by [facility] s SODIUM 6-07 mouth. ity of (COLACE 11:23: [place] ORAL) 09 Medical Branch vitamin C Yes 1000mg Take 1,000 [facility] with derrell 6-07 mg by ity of hips 11:23: mouth [place] (VITAMIN C) 09 daily. Medica l 1,000 mg Branch tablet cholecalcif Yes 1000U Take 1,000 [facility] edmar, 6-07 Units by ity of vitamin D3, 11:23: mouth [place] (VITAMIN 09 daily. Medical D3) 1,000 Branch unit tablet CRANBERRY Yes Take by [facility] FRUIT 6-07 mouth ity of EXTRACT 11:23: daily. [place] (CRANBERRY Medical ORAL) Branch CALCIUM Yes Take by [facility] ORAL 6-07 mouth ity of 11:23: daily. [place] [facility] DOCOSAHEXAN Yes 1000mg Take 1,000 [...] 6-07 mouth. ity of ERROUS FUM 11:23: [place] (MULTI 09 Medical VITAMIN Branch ORAL) METHYLCELLU 0 Yes Univer s LOSE (FIBER 6-07 ity of THERAPY 11:23: [facility]) 09 Medical Branch DOCUSATE Yes Take by [facility] s SODIUM 6-07 mouth. ity of (COLACE 11:23: [place] ORAL) 09 Medical Branch vitamin C Yes 1000mg Take 1,000 [facility] with derrell 6-07 mg by ity of hips 11:23: mouth [place] (VITAMIN C) 09 daily. Medica l 1,000 mg Branch tablet cholecalcif Yes 1000U Take 1,000 [facility] edmar, 6-07 Units by ity of vitamin D3, 11:23: mouth [place] (VITAMIN 09 daily. Medical D3) 1,000 Branch unit tablet CRANBERRY Yes Take by [facility]ive rs FRUIT 6-07 mouth ity of EXTRACT 11:23: daily. [place] (CRANBERRY Medical ORAL) Branch CALCIUM Yes Take by [facility] ORAL 6-07 mouth ity of 11:23: daily. Medical Branch DOCOSAHEXAN Yes 1000mg Take 1,000 [facility] OIC 6-07 mg by ity of ACID/EPA 11:23: mouth [place] (FISH OIL 09 daily. Medical ORAL) Branch BIOTIN ORAL Yes Take by [facility] vers 6-07 mouth. ity of 11:23: Medical Branch FOLIC ACID 0 Yes Take by [facility] ers ORAL 6-07 mouth ity of 11:23: daily. [place] [facility] MULTIVIT 0 Yes Take by Univer s &MINERALS/F 6-07 mouth. ity of ERROUS FUM 11:23: [place] (MULTI 09 Medical VITAMIN Branch ORAL) METHYLCELLU 0 Yes Univer s LOSE (FIBER 6-07 ity of THERAPY 11:23: [facility]) 09 Medical Branch DOCUSATE Yes [...] by ity of vitamin D3, 11:23: mouth [place] (VITAMIN 09 daily. Medical D3) 1,000 Branch unit tablet CRANBERRY Yes Take by [facility] [place] rs FRUIT 6-07 mouth ity of EXTRACT 11:23: daily. [place] (CRANBERRY 09 Medical ORAL) Branch CALCIUM Yes Take by [facility] ORAL 6-07 mouth ity of 11:23: daily. [place] [facility] DOCOSAHEXAN Yes 1000mg Take 1,000 [facility] OIC 6-07 mg by ity of ACID/EPA 11:23: mouth [place] (FISH OIL 09 daily. Medical ORAL) Branch BIOTIN ORAL Yes Take by [facility] vers 6-07 mouth. ity of 11:23: [place] [address] Medical Branch FOLIC ACID Yes Take by [facility] ers ORAL 6-07 mouth ity of 11:23: daily. [place] [address] Medical Branch MULTIVIT Yes Take by [facility] &MINERALS/F 6-07 mouth. ity of ERROUS FUM 11:23: [place] (MULTI 09 Medical VITAMIN Branch ORAL) METHYLCELLU Yes Univer s LOSE (FIBER 6-07 ity of THERAPY 11:23: [facility]) 09 Medical Branch DOCUSATE Yes Take by Univer s SODIUM 6-07 mouth. ity of (COLACE 11:23: [place] ORAL) 09 Medical Branch vitamin C Yes 1000mg Take 1,000 [facility] with derrell 6-07 mg by ity of hips 11:23: mouth [place] (VITAMIN C) 09 daily. Medica l 1,000 mg Branch tablet cholecalcif Yes 1000U Take 1,000 [facility] edmar, 6-07 Units by ity of vitamin D3, 11:23: mouth [place] (VITAMIN 09 daily. Medical D3) 1,000 Branch unit tablet CRANBERRY Yes Take by [facility] FRUIT 6-07 mouth ity of EXTRACT 11:23: daily. [place] (CRANBERRY Medical ORAL) Branch CALCIUM Yes Take by [facility] ORAL 6-07 mouth ity of 11:23: daily. [place] [facility] DOCOSAHEXAN Yes 1000mg Take 1,000 [facility] OIC 6-07 mg by ity of ACID/EPA 11:23: mouth [place] (FISH OIL 09 daily. Medical ORAL) Branch BIOTIN ORAL Yes Take by [facility] vers 6-07 mouth. ity of 11:23: [place] [facility] FOLIC ACID Yes Take by [facility] ers ORAL 6-07 mouth ity of 11:23: daily. [place] [facility] MULTIVIT Yes Take by [facility] [place] [facility] s &MINERALS/F 6-07 mouth. ity of ERROUS FUM 11:23: [place] (MULTI 09 Medical VITAMIN Branch ORAL) METHYLCELLU Yes [facility] LOSE (FIBER 6-07 ity of THERAPY 11:23: [place] MISC) Medical Branch DOCUSATE Yes Take by [facility] SODIUM 6-07 mouth. ity of (COLACE 11:23: [place] ORAL) Medical Branch vitamin C Yes 1000mg Take 1,000 [facility] with derrell 6-07 mg by ity of hips 11:23: mouth [place] (VITAMIN C) 09 daily. Medica l 1,000 mg Branch tablet cholecalcif Yes 1000U Take 1,000 [facility] edmar, 6-07 Units by ity of vitamin D3, 11:23: mouth [place] (VITAMIN 09 daily. Medical D3) 1,000 Branch unit tablet CRANBERRY Yes Take by [facility] [place] rs FRUIT 6-07 mouth ity of EXTRACT 11:23: daily. [place] (CRANBERRY Medical ORAL) Branch CALCIUM Yes Take by [facility] ORAL 6-07 mouth ity of 11:23: daily. [place] [facility] DOCOSAHEXAN Yes 1000mg Take 1,000 [facility] OIC 6-07 mg by ity of ACID/EPA 11:23: mouth [place] (FISH OIL 09 daily. Medical ORAL) Branch BIOTIN ORAL Yes Take by Uni vers 6-07 mouth. ity of 11:23: [place] [address] Medical Branch FOLIC ACID Yes Take by Univ ers ORAL 6-07 mouth ity of 11:23: daily. [place] [address] Medical Branch MULTIVIT Yes Take by Univer s &MINERALS/F 6-07 mouth. ity of ERROUS FUM 11:23: [place] ([place] [address] Medical VITAMIN Branch ORAL) METHYLCELLU Yes Univer s LOSE (FIBER 6-07 ity of THERAPY 11:23: [facility]) 09 Medical Branch DOCUSATE Yes Take by Univer s SODIUM 6-07 mouth. ity of (COLACE 11:23: [place] ORAL) 09 Medical Branch vitamin C Yes 1000mg Take 1,000 [facility] with derrell 6-07 mg by ity of hips 11:23: mouth [place] (VITAMIN C) 09 daily. Medica l 1,000 mg Branch tablet cholecalcif Yes 1000U Take 1,000 [facility] edmar, 6-07 Units by ity of vitamin D3, 11:23: mouth [place] (VITAMIN 09 daily. Medical D3) 1,000 Branch unit tablet CRANBERRY Yes Take by [facility] FRUIT 6-07 mouth ity of EXTRACT 11:23: daily. [place] (CRANBERRY Medical ORAL) Branch CALCIUM Yes Take by [facility] ORAL 6-07 mouth ity of 11:23: daily. [place] [address] Medical Branch DOCOSAHEXAN Yes 1000mg Take 1,000 [facility] OIC 6-07 mg by ity of ACID/EPA 11:23: mouth [place] (FISH OIL 09 daily. Medical ORAL) Branch BIOTIN ORAL Yes Take by Uni vers 6-07 mouth. ity of 11:23: [place] [address] Medical Branch FOLIC ACID Yes Take by Univ ers ORAL 6-07 mouth ity of 11:23: daily. [place] [address] Medical Branch MULTIVIT Yes Take by Univer s &MINERALS/F 6-07 mouth. ity of ERROUS FUM 11:23: [place] ([place] [address] Medical VITAMIN Branch ORAL) METHYLCELLU Yes Univer s LOSE (FIBER 6-07 ity of THERAPY 11:23: [place] [facility]IS) 09 Medical Branch DOCUSATE Yes Take by [facility] SODIUM 6-07 mouth. ity of (COLACE [...] Branch unit tablet CRANBERRY Yes Take by [facility] FRUIT 6-07 mouth ity of EXTRACT 11:23: daily. [place] (CRANBERRY Medical ORAL) Branch CALCIUM Yes Take by [facility] ORAL 6-07 mouth ity of 11:23: daily. [place] [facility] DOCOSAHEXAN Yes 1000mg Take 1,000 [facility] OIC 6-07 mg by ity of ACID/EPA 11:23: mouth [place] (FISH OIL 09 daily. Medical ORAL) Branch BIOTIN ORAL Yes Take by Uni vers 6-07 mouth. ity of 11:23: [place] [facility] FOLIC ACID Yes Take by [facility] ers ORAL 6-07 mouth ity of 11:23: daily. [place] [facility] MULTIVIT Yes Take by [facility] &MINERALS/F 6-07 mouth. ity of ERROUS FUM 11:23: [place] (MULTI 09 Medical VITAMIN Branch ORAL) METHYLCELLU Yes Univer s LOSE (FIBER 6-07 ity of THERAPY 11:23: [place] MISC) 09 Medical Branch DOCUSATE Yes Take by [facility] SODIUM 6-07 mouth. ity of (COLACE 11:23: [place] ORAL) 09 Medical Branch vitamin C Yes 1000mg Take 1,000 [facility] with derrell 6-07 mg by ity of hips 11:23: mouth [place] (VITAMIN C) 09 daily. Medica l 1,000 mg Branch tablet cholecalcif Yes 1000U Take 1,000 [facility] edmar, 6-07 Units by ity of vitamin D3, 11:23: mouth [place] (VITAMIN 09 daily. Medical D3) 1,000 Branch unit tablet CRANBERRY Yes Take by [facility] [place] rs FRUIT 6-07 mouth ity of EXTRACT 11:23: daily. [place] (CRANBERRY 09 Medical ORAL) Branch CALCIUM Yes Take by [facility] ORAL 6-07 mouth ity of 11:23: daily. [place] [facility] DOCOSAHEXAN Yes 1000mg Take 1,000 [facility] OIC 6-07 mg by ity of ACID/EPA 11:23: mouth [place] (FISH OIL 09 daily. Medical ORAL) Branch BIOTIN ORAL Yes Take by Uni vers 6-07 mouth. ity of 11:23: Medical Branch FOLIC ACID Yes Take by Univ ers ORAL 6-07 mouth ity of 11:23: daily. [place] [facility] Branch MULTIVIT Yes Take by Univer s &MINERALS/F 6-07 mouth. ity of ERROUS FUM 11:23: [place] (MULTI 09 Medical VITAMIN Branch ORAL) METHYLCELLU Yes Univer s LOSE (FIBER 6-07 ity of THERAPY 11:23: [place] MISC) Medical Branch DOCUSATE Yes Take by Univer s SODIUM 6-07 mouth. ity of (COLACE 11:23: [place] ORAL) Medical Branch vitamin C Yes 1000mg Take 1,000 [facility] with derrell 6-07 mg by ity of hips 11:23: mouth [place] (VITAMIN C) 09 daily. Medica l 1,000 mg Branch tablet cholecalcif Yes 1000U Take 1,000 [facility] edmar, 6-07 Units by ity of vitamin D3, 11:23: mouth [place] (VITAMIN 09 daily. Medical D3) 1,000 Branch unit tablet CRANBERRY Yes Take by Unive rs FRUIT 6-07 mouth ity of EXTRACT 11:23: daily. [place] (CRANBERRY Medical ORAL) Branch CALCIUM Yes Take by [facility] ORAL 6-07 mouth ity of 11:23: daily. [place] [facility] DOCOSAHEXAN Yes 1000mg Take 1,000 [facility] OIC 6-07 mg by ity of ACID/EPA 11:23: mouth [place] (FISH OIL 09 daily. Medical ORAL) Branch BIOTIN ORAL Yes Take by Uni vers 6-07 mouth. ity of 11:23: [place] [facility] FOLIC ACID Yes Take by Univ ers ORAL 6-07 mouth ity of 11:23: daily. [place] [address] Medical Branch MULTIVIT Yes Take by [facility] &MINERALS/F 6-07 mouth. ity of ERROUS FUM 11:23: [place] (MULTI Medical VITAMIN Branch ORAL) METHYLCELLU 0 Yes [facility] LOSE (FIBER 6-07 ity of THERAPY 11:23: [facility]) Medical Branch DOCUSATE Yes Take [...] by ity of vitamin D3, 11:23: mouth [place] (VITAMIN 09 daily. Medical D3) 1,000 Branch unit tablet CRANBERRY Yes Take by [facility] [place] rs FRUIT 6-07 mouth ity of EXTRACT 11:23: daily. [place] (CRANBERRY 09 Medical ORAL) Branch CALCIUM Yes Take by [facility] ORAL 6-07 mouth ity of 11:23: daily. [place] [address] Medical Branch DOCOSAHEXAN Yes 1000mg Take 1,000 [facility] OIC 6-07 mg by ity of ACID/EPA 11:23: mouth [place] (FISH OIL 09 daily. Medical ORAL) Branch BIOTIN ORAL Yes Take by Uni vers 6-07 mouth. ity of 11:23: [place] [address] Medical Branch FOLIC ACID Yes Take by Univ ers ORAL 6-07 mouth ity of 11:23: daily. [place] [address] Medical Branch MULTIVIT Yes Take by [facility] &MINERALS/F 6-07 mouth. ity of ERROUS FUM 11:23: [place] (MULTI Medical VITAMIN Branch ORAL) METHYLCELLU 0 Yes Univer s LOSE (FIBER 6-07 ity of THERAPY 11:23: [facility]) Medical Branch DOCUSATE 0 Yes Take by [facility] SODIUM 6-07 mouth. ity of (COLACE [...] 6-07 mouth ity of EXTRACT 11:23: daily. [place] (CRANBERRY Medical ORAL) Branch CALCIUM Yes Take by [facility] ORAL 6-07 mouth ity of 11:23: daily. [place] [facility] Branch DOCOSAHEXAN Yes 1000mg Take 1,000 [facility] OIC 6-07 mg by ity of ACID/EPA 11:23: mouth [place] (FISH OIL 09 daily. Medical ORAL) Branch BIOTIN ORAL Yes Take by Uni vers 6-07 mouth. ity of 11:23: [place] [facility] FOLIC ACID Yes Take by Univ ers ORAL 6-07 mouth ity of 11:23: daily. [place] [facility] MULTIVIT Yes Take by [facility] &MINERALS/F 6-07 mouth. ity of ERROUS FUM 11:23: [place] (MULTI 09 Medical VITAMIN Branch ORAL) METHYLCELLU Yes Univer s LOSE (FIBER 6-07 ity of THERAPY 11:23: [place] MISC) 09 Medical Branch DOCUSATE Yes Take by Univer s SODIUM 6-07 mouth. ity of (COLACE 11:23: [place] ORAL) 09 Medical Branch vitamin C Yes 1000mg Take 1,000 [facility] with derrell 6-07 mg by ity of hips 11:23: mouth [place] (VITAMIN C) 09 daily. Medica l 1,000 mg Branch tablet cholecalcif 0 Yes 1000U Take 1,000 [facility] edmar, 6-07 Units by ity of vitamin D3, 11:23: mouth [place] (VITAMIN 09 daily. Medical D3) 1,000 Branch unit tablet CRANBERRY 0 Yes Take by [facility] rs FRUIT 6-07 mouth ity of EXTRACT 11:23: daily. [place] ([place] Medical ORAL) Branch CALCIUM Yes Take by [facility] ORAL 6-07 mouth ity of 11:23: daily. [place] [facility] Branch DOCOSAHEXAN Yes 1000mg Take 1,000 [facility] OIC 6-07 mg by ity of ACID/EPA 11:23: mouth [place] (FISH OIL 09 daily. Medical ORAL) Branch BIOTIN ORAL Yes Take by Uni vers 6-07 mouth. ity of 11:23: Medical Branch FOLIC ACID Yes Take by Univ ers ORAL 6-07 mouth ity of 11:23: daily. [place] [facility] Branch MULTIVIT Yes Take by Univer s &MINERALS/F 6-07 mouth. ity of ERROUS FUM 11:23: [place] (MULTI 09 Medical VITAMIN Branch ORAL) METHYLCELLU Yes [facility] LOSE (FIBER 6-07 ity of THERAPY 11:23: [place] MISC) 09 Medical Branch DOCUSATE Yes Take by Univer s SODIUM 6-07 mouth. ity of (COLACE 11:23: [place] ORAL) 09 Medical Branch vitamin C Yes 1000mg Take 1,000 [facility] with derrell 6-07 mg by ity of hips 11:23: mouth [place] (VITAMIN C) 09 daily. Medica l 1,000 mg Branch tablet cholecalcif Yes 1000U Take 1,000 [facility] edmar, 6-07 Units by ity of vitamin D3, 11:23: mouth [place] (VITAMIN 09 daily. Medical D3) 1,000 Branch unit tablet CRANBERRY Yes Take by Unive rs FRUIT 6-07 mouth ity of EXTRACT 11:23: daily. [place] ([place] Medical ORAL) Branch CALCIUM Yes Take by [facility] ORAL 6-07 mouth ity of 11:23: daily. [place] [facility] Branch DOCOSAHEXAN Yes 1000mg Take 1,000 [facility] OIC 6-07 mg by ity of ACID/EPA 11:23: mouth [place] (FISH OIL 09 daily. Medical ORAL) Branch BIOTIN ORAL Yes Take by Uni vers 6-07 mouth. ity of 11:23: Medical Branch FOLIC ACID Yes Take by Univ ers ORAL 6-07 mouth ity of 11:23: daily. [place] [facility] MULTIVIT Yes Take by Univer s &MINERALS/F 6-07 mouth. ity of ERROUS FUM 11:23: [place] (MULTI 09 Medical VITAMIN Branch ORAL) METHYLCELLU 0 Yes Univer s LOSE (FIBER 6-07 ity of THERAPY 11:23: [facility]) 09 Medical Branch DOCUSATE Yes [...] by ity of vitamin D3, 11:23: mouth [place] (VITAMIN 09 daily. Medical D3) 1,000 Branch unit tablet CRANBERRY Yes Take by [facility] [place] rs FRUIT 6-07 mouth ity of EXTRACT 11:23: daily. [place] ([place] 09 Medical ORAL) Branch CALCIUM Yes Take by Univers ORAL 6-07 mouth ity of 11:23: daily. [place] [facility] DOCOSAHEXAN Yes 1000mg Take 1,000 [facility] OIC 6-07 mg by ity of ACID/EPA 11:23: mouth [place] (FISH OIL 09 daily. Medical ORAL) Branch BIOTIN ORAL Yes Take by Uni vers 6-07 mouth. ity of 11:23: [place] [address] Medical Branch FOLIC ACID Yes Take by Univ ers ORAL 6-07 mouth ity of 11:23: daily. [place] [facility] MULTIVIT Yes Take by [facility] &MINERALS/F 6-07 mouth. ity of ERROUS FUM 11:23: [place] (MULTI 09 Medical VITAMIN Branch ORAL) METHYLCELLU 0 Yes Univer s LOSE (FIBER 6-07 ity of THERAPY 11:23: [facility]) 09 Medical Branch DOCUSATE 0 Yes Take by [facility]iver s SODIUM 6-07 mouth. ity of (COLACE 11:23: [place] ORAL) 09 Medical Branch vitamin C Yes 1000mg Take 1,000 [facility] with derrell 6-07 mg by ity of hips 11:23: mouth [place] (VITAMIN C) 09 daily. Medica l 1,000 mg Branch tablet cholecalcif 0 Yes 1000U Take 1,000 [facility] edmar, 6-07 Units by ity of vitamin D3, 11:23: mouth [place] (VITAMIN 09 daily. Medical D3) 1,000 Branch unit tablet CRANBERRY Yes Take by [facility] [place] rs FRUIT 6-07 mouth ity of EXTRACT 11:23: daily. [place] ([place] Medical ORAL) Branch CALCIUM Yes Take by [facility] ORAL 6-07 mouth ity of 11:23: daily. [place] [facility] DOCOSAHEXAN Yes 1000mg Take 1,000 [facility] OIC 6-07 mg by ity of ACID/EPA 11:23: mouth [place] (FISH OIL 09 daily. Medical ORAL) Branch BIOTIN ORAL Yes Take by [facility] vers 6-07 mouth. ity of 11:23: Medical Branch FOLIC ACID Yes Take by Univ ers ORAL 6-07 mouth ity of 11:23: daily. [place] [facility] MULTIVIT Yes Take by [facility] s &MINERALS/F 6-07 mouth. ity of ERROUS FUM 11:23: [place] (MULTI 09 Medical VITAMIN Branch ORAL) METHYLCELLU Yes [facility] LOSE (FIBER 6-07 ity of THERAPY 11:23: [place] MISC) 09 Medical Branch DOCUSATE Yes Take by [facility] s SODIUM 6-07 mouth. ity of (COLACE 11:23: [place] ORAL) 09 Medical Branch vitamin C Yes 1000mg Take 1,000 [facility] with derrell 6-07 mg by ity of hips 11:23: mouth [place] (VITAMIN C) 09 daily. Medica l 1,000 mg Branch tablet cholecalcif Yes 1000U Take 1,000 [facility] edmar, 6-07 Units by ity of vitamin D3, 11:23: mouth [place] (VITAMIN 09 daily. Medical D3) 1,000 Branch unit tablet CRANBERRY Yes Take by [facility] [place] rs FRUIT 6-07 mouth ity of EXTRACT 11:23: daily. [place] ([place] 09 Medical ORAL) Branch CALCIUM Yes Take by [facility] ORAL 6-07 mouth ity of 11:23: daily. [place] [facility] DOCOSAHEXAN Yes 1000mg Take 1,000 [facility] OIC 6-07 mg by ity of ACID/EPA 11:23: mouth [place] (FISH OIL 09 daily. Medical ORAL) Branch BIOTIN ORAL Yes Take by Uni vers 6-07 mouth. ity of 11:23: Medical Branch FOLIC ACID Yes Take by Univ ers ORAL 6-07 mouth ity of 11:23: daily. [place] [facility] MULTIVIT Yes Take by Univer s &MINERALS/F 6-07 mouth. ity of ERROUS FUM 11:23: [place] (MULTI 09 Medical VITAMIN Branch ORAL) METHYLCELLU 0 Yes Univer s LOSE (FIBER 6-07 ity of THERAPY 11:23: [facility]) 09 Medical Branch DOCUSATE Yes Take by Univer s SODIUM 6-07 mouth. ity of (COLACE 11:23: [place] ORAL) 09 Medical Branch vitamin C Yes 1000mg Take 1,000 [facility] with derrell 6-07 mg by ity of hips 11:23: mouth [place] (VITAMIN C) 09 daily. Medica l 1,000 mg Branch tablet cholecalcif Yes 1000U Take 1,000 [facility] edmar, 6-07 Units by ity of vitamin D3, 11:23: mouth [place] (VITAMIN 09 daily. Medical D3) 1,000 Branch unit tablet CRANBERRY Yes Take by Unive rs FRUIT 6-07 mouth ity of EXTRACT 11:23: daily. [place] (CRANBERRY 09 Medical ORAL) Branch CALCIUM Yes Take by [facility] ORAL 6-07 mouth ity of 11:23: daily. [place] [facility] DOCOSAHEXAN Yes 1000mg Take 1,000 [facility] OIC 6-07 mg by ity of ACID/EPA 11:23: mouth [place] (FISH OIL 09 daily. Medical ORAL) Branch BIOTIN ORAL Yes Take by Uni vers 6-07 mouth. ity of 11:23: [place] [facility] FOLIC ACID Yes Take by Univ ers ORAL 6-07 mouth ity of 11:23: daily. [place] [facility] MULTIVIT 0 Yes Take by Univer s &MINERALS/F 6-07 mouth. ity of ERROUS FUM 11:23: [place] (MULTI 09 Medical VITAMIN Branch ORAL) METHYLCELLU 0 Yes Univer s LOSE (FIBER 6-07 ity of THERAPY 11:23: [facility]) 09 Medical Branch DOCUSATE Yes Take by [facility] SODIUM 6-07 mouth. ity of (COLACE 11:23: [place] ORAL) 09 Medical Branch vitamin C Yes 1000mg Take 1,000 [facility] with derrell 6-07 mg by ity of hips 11:23: mouth [place] (VITAMIN C) 09 daily. Medica l 1,000 mg Branch tablet cholecalcif Yes 1000U Take 1,000 [facility] edmar, 6-07 Units by ity of vitamin D3, 11:23: mouth [place] (VITAMIN 09 daily. Medical D3) 1,000 Branch unit tablet CRANBERRY Yes Take by [facility] [place] rs FRUIT 6-07 mouth ity of EXTRACT 11:23: daily. [place] (CRANBERRY Medical ORAL) Branch CALCIUM Yes Take by [facility] ORAL 6-07 mouth ity of 11:23: daily. [place] [facility] DOCOSAHEXAN Yes 1000mg Take 1,000 [facility] OIC 6-07 mg by ity of ACID/EPA 11:23: mouth [place] (FISH OIL 09 daily. Medical ORAL) Branch BIOTIN ORAL Yes Take by Uni vers 6-07 mouth. ity of 11:23: [place] [address] Medical Branch FOLIC ACID Yes Take by Univ ers ORAL 6-07 mouth ity of 11:23: daily. [place] [address] Medical Branch MULTIVIT Yes Take by [facility] &MINERALS/F 6-07 mouth. ity of ERROUS FUM 11:23: [place] (MULTI 09 Medical VITAMIN Branch ORAL) METHYLCELLU 0 Yes [facility] LOSE (FIBER 6-07 ity of THERAPY 11:23: [facility]) 09 Medical Branch DOCUSATE Yes Take by [facility] SODIUM 6-07 mouth. ity of (COLACE 11:23: [place] ORAL) 09 Medical Branch vitamin C Yes 1000mg Take 1,000 [facility] with derrell 6-07 mg by ity of hips 11:23: mouth [place] (VITAMIN C) 09 daily. Medica l 1,000 mg Branch tablet cholecalcif 0 Yes 1000U Take 1,000 [facility] edmar, 6-07 Units by ity of vitamin D3, 11:23: mouth [place] (VITAMIN 09 daily. Medical D3) 1,000 Branch unit tablet CRANBERRY Yes Take by Unive rs FRUIT 6-07 mouth ity of EXTRACT 11:23: daily. [place] (CRANBERRY Medical ORAL) Branch CALCIUM Yes Take by [facility] ORAL 6-07 mouth ity of 11:23: daily. [place] [facility] DOCOSAHEXAN Yes 1000mg Take 1,000 [facility] OIC 6-07 mg by ity of ACID/EPA 11:23: mouth [place] (FISH OIL 09 daily. Medical ORAL) Branch BIOTIN ORAL Yes Take by Uni vers 6-07 mouth. ity of 11:23: Medical Branch FOLIC ACID Yes Take by Univ ers ORAL 6-07 mouth ity of 11:23: daily. [place] [facility] MULTIVIT Yes Take by Univer s &MINERALS/F 6-07 mouth. ity of ERROUS FUM 11:23: [place] (MULTI 09 Medical VITAMIN Branch ORAL) METHYLCELLU Yes Univer s LOSE (FIBER 6-07 ity of THERAPY 11:23: [place] MISC) Medical Branch DOCUSATE Yes Take by Univer s SODIUM 6-07 mouth. ity of (COLACE 11:23: [place] ORAL) 09 Medical Branch vitamin C Yes 1000mg Take 1,000 [facility] with derrell 6-07 mg by ity of hips 11:23: mouth [place] (VITAMIN C) 09 daily. Medica l 1,000 mg Branch tablet cholecalcif Yes 1000U Take 1,000 [facility] edmar, 6-07 Units by ity of vitamin D3, 11:23: mouth [place] (VITAMIN 09 daily. Medical D3) 1,000 Branch unit tablet CRANBERRY Yes Take by Unive rs FRUIT 6-07 mouth ity of EXTRACT 11:23: daily. [place] (CRANBERRY Medical ORAL) Branch CALCIUM Yes Take by [facility] ORAL 6-07 mouth ity of 11:23: daily. [place] [facility] DOCOSAHEXAN Yes 1000mg Take 1,000 [facility] OIC 6-07 mg by ity of ACID/EPA 11:23: mouth [place] (FISH OIL 09 daily. Medical ORAL) Branch BIOTIN ORAL Yes Take by Uni vers 6-07 mouth. ity of 11:23: [place] [address] Medical Branch FOLIC ACID Yes Take by Univ ers ORAL 6-07 mouth ity of 11:23: daily. [place] [facility] MULTIVIT Yes Take by Univer s &MINERALS/F 6-07 mouth. ity of ERROUS FUM 11:23: [place] ([place] [address] Medical VITAMIN Branch ORAL) METHYLCELLU Yes Univer s LOSE (FIBER 6-07 ity of THERAPY 11:23: [facility]) Medical Branch DOCUSATE Yes Take by Univer s SODIUM 6-07 mouth. ity of (COLACE 11:23: [place] ORAL) 09 Medical Branch vitamin C Yes 1000mg Take 1,000 [facility] with derrell 6-07 mg by ity of hips 11:23: mouth [place] (VITAMIN C) 09 daily. Medica l 1,000 mg Branch tablet cholecalcif Yes 1000U Take 1,000 [facility] ed[place], 6-07 Units by ity of vitamin D3, 11:23: mouth [place] (VITAMIN 09 daily. Medical D3) 1,000 Branch unit tablet CRANBERRY Yes Take by [facility] [place] rs FRUIT 6-07 mouth ity of EXTRACT 11:23: daily. [place] (CRANBERRY Medical ORAL) Branch CALCIUM Yes Take by [facility] ORAL 6-07 mouth ity of 11:23: daily. [place] [facility] DOCOSAHEXAN Yes 1000mg Take 1,000 [facility] OIC 6-07 mg by ity of ACID/EPA 11:23: mouth [place] (FISH OIL 09 daily. Medical ORAL) Branch BIOTIN ORAL Yes Take by Uni vers 6-07 mouth. ity of 11:23: [place] [address] Medical Branch FOLIC ACID Yes Take by Univ ers ORAL 6-07 mouth ity of 11:23: daily. [place] [address] Medical Branch MULTIVIT Yes Take by Univer s &MINERALS/F 6-07 mouth. ity of ERROUS FUM 11:23: [place] (MULTI 09 Medical VITAMIN Branch ORAL) METHYLCELLU Yes Univer s LOSE (FIBER 6-07 ity of THERAPY 11:23: [facility]) 09 Medical Branch DOCUSATE Yes Take by [facility] SODIUM 6-07 mouth. ity of (COLACE 11:23: [place] ORAL) 09 Medical Branch vitamin C Yes 1000mg Take 1,000 [facility] with derrell 6-07 mg by ity of hips 11:23: mouth [place] (VITAMIN C) 09 daily. Medica l 1,000 mg Branch tablet cholecalcif Yes 1000U Take 1,000 [facility] ed[place], 6-07 Units by ity of vitamin D3, 11:23: mouth [place] (VITAMIN 09 daily. Medical D3) 1,000 Branch unit tablet CRANBERRY Yes Take by [employer] rs FRUIT 6- mouth ity of EXTRACT 11:23: daily. [place] (CRANBERRY 09 Medical ORAL) Branch CALCIUM Yes Take by [facility] ORAL 6 mouth ity of 11:23: daily. [place] [facility] DOCOSAHEXAN Yes 1000mg Take 1,000 [facility] OIC 6-07 mg by ity of ACID/EPA 11:23: mouth [place] (FISH OIL 09 daily. Medical ORAL) Branch BIOTIN ORAL Yes Take by Uni vers 6- mouth. ity of 11:23: [place] 09 Medical Branch FOLIC ACID Yes Take by [facility] ers ORAL 6- mouth ity of 11:58: daily. [place] [address] Medical Branch MULTIVIT Yes Take by [facility] [place] [facility] s &MINERALS/F 6- mouth. ity of ERROUS FUM 11:58: [place] (MULTI 16 Medical VITAMIN Branch ORAL) METHYLCELLU Yes Univer s LOSE (FIBER 6- ity of THERAPY 11:58: [facility]) 16 Medical Branch DOCUSATE Yes Take by [facility] SODIUM 6-01 mouth. ity of (COLACE 11:58: [place] ORAL) 16 Medical Branch vitamin C Yes 1000mg Take 1,000 [facility] with derrell 6-01 mg by ity of hips 11:58: mouth [place] (VITAMIN C) 16 daily. Medica l 1,000 mg Branch tablet cholecalcif Yes 1000U Take 1,000 [facility] ed[facility], 6-01 Units by ity of vitamin D3, 11:58: mouth [place] (VITAMIN 16 daily. Medical D3) 1,000 Branch unit tablet CRANBERRY Yes Take by [facility] [place] rs FRUIT 6- mouth ity of EXTRACT 11:58: daily. [place] (CRANBERRY 16 Medical ORAL) [place] CALCIUM 0 Yes Take by Univers ORAL 6-01 mouth ity of 11:58: daily. [address] DOCOSAHEXAN 0 Yes 1000mg Take 1,000 [facility] OIC 6-01 mg by ity of ACID/EPA 11:58: mouth [place] (FISH OIL 16 daily. Medical ORAL) [place] BIOTIN ORAL 0 Yes Take by Uni vers 6-01 mouth. ity of 11:58: [address] metformin 0 Yes [id number] 500mg Take 1 U nivers ER 500 mg 5-31 tablet by ity o f 24 hr 00:00: mouth [place] tablet 00 daily with Medical breakfast. Branch STOP REGULAR METFORMIN. metformin Yes [id number] 500mg Take 1 U nivers ER 500 mg 5-31 tablet by ity o f 24 hr 00:00: mouth [place] tablet 00 daily with Medical breakfast. Branch STOP REGULAR METFORMIN. metformin Yes [id number] 500mg Take 1 U nivers ER 500 mg 5-31 tablet by ity o f 24 hr 00:00: mouth [place] tablet 00 daily with Medical breakfast. Branch STOP REGULAR METFORMIN. metformin Yes [id number] 500mg Take 1 U nivers ER 500 mg 5-31 tablet by ity o f 24 hr 00:00: mouth [place] tablet 00 daily with Medical breakfast. Branch STOP REGULAR METFORMIN. metformin 0 Yes [id number] 500mg Take 1 U nivers ER 500 mg 5-31 tablet by ity o f 24 hr 00:00: mouth [place] tablet 00 daily with Medical breakfast. Branch STOP REGULAR METFORMIN. metformin 2021-0 Yes [id number] 500mg Take 1 U nivers ER 500 mg 5-31 tablet by ity o f 24 hr 00:00: mouth [place] tablet 00 daily with Medical breakfast. Branch STOP REGULAR METFORMIN. metformin 2021-0 Yes [id number] 500mg Take 1 U nivers ER 500 mg 5-31 tablet by ity o f 24 hr 00:00: mouth [place] tablet 00 daily with Medical breakfast. Branch STOP REGULAR METFORMIN. metformin 2021-0 Yes [id number] 500mg Take 1 U nivers ER 500 mg 5-31 tablet by ity o f 24 hr 00:00: mouth [place] tablet 00 daily with Medical breakfast. Branch STOP REGULAR METFORMIN. metformin 2022-0 Yes [id number] 500mg Take 1 U nivers ER 500 mg 5-31 tablet by ity o f 24 hr 00:00: mouth [place] tablet 00 daily with Medical breakfast. Branch STOP REGULAR METFORMIN. metformin 2021-0 Yes [id number] 500mg Take 1 U nivers ER 500 mg 5-31 tablet by ity o f 24 hr 00:00: mouth [place] tablet 00 daily with Medical breakfast. Branch STOP REGULAR METFORMIN. metformin 2021-0 Yes [id number] 500mg Take 1 U nivers ER 500 mg 5-31 tablet by ity o f 24 hr 00:00: mouth [place] tablet 00 daily with Medical breakfast. Branch STOP REGULAR METFORMIN. metformin 2021-0 Yes [id number] 500mg Take 1 U nivers ER 500 mg 5-31 tablet by ity o f 24 hr 00:00: mouth [place] tablet 00 daily with Medical breakfast. Branch STOP REGULAR METFORMIN. metformin 2021-0 Yes [id number] 500mg Take 1 U nivers ER 500 mg 5-31 tablet by ity o f 24 hr 00:00: mouth [place] tablet 00 daily with Medical breakfast. Branch STOP REGULAR METFORMIN. metformin 2021-0 Yes [id number] 500mg Take 1 U nivers ER 500 mg 5-31 tablet by ity o f 24 hr 00:00: mouth [place] tablet 00 daily with Medical breakfast. Branch STOP REGULAR METFORMIN. metformin 2021-0 Yes [id number] 500mg Take 1 U nivers ER 500 mg 5-31 tablet by ity o f 24 hr 00:00: mouth [place] tablet 00 daily with Medical breakfast. Branch STOP REGULAR METFORMIN. metformin 2021-0 Yes [id number] 500mg Take 1 U nivers ER 500 mg 5-31 tablet by ity o f 24 hr 00:00: mouth [place] tablet 00 daily with Medical breakfast. Branch STOP REGULAR METFORMIN. metformin 2021-0 Yes [id number] 500mg Take 1 U nivers ER 500 mg 5-31 tablet by ity o f 24 hr 00:00: mouth [place] tablet 00 daily with Medical breakfast. Branch STOP REGULAR METFORMIN. metformin 2021-0 Yes [id number] 500mg Take 1 U nivers ER 500 mg 5-31 tablet by ity o f 24 hr 00:00: mouth [place] tablet 00 daily with Medical breakfast. Branch STOP REGULAR METFORMIN. metformin 2021-0 Yes [id number] 500mg Take 1 U nivers ER 500 mg 5-31 tablet by ity o f 24 hr 00:00: mouth [place] tablet 00 daily with Medical breakfast. Branch STOP REGULAR METFORMIN. metformin 2021-0 Yes [id number] 500mg Take 1 U nivers ER 500 mg 5-31 tablet by ity o f 24 hr 00:00: mouth [place] tablet 00 daily with Medical breakfast. Branch STOP REGULAR METFORMIN. metformin 2021-0 Yes [id number] 500mg Take 1 U nivers ER 500 mg 5-31 tablet by ity o f 24 hr 00:00: mouth [place] tablet 00 daily with Medical breakfast. Branch STOP REGULAR METFORMIN. metformin 2021-0 Yes [id number] 500mg Take 1 U nivers ER 500 mg 5-31 tablet by ity o f 24 hr 00:00: mouth [place] tablet 00 daily with Medical breakfast. Branch STOP REGULAR METFORMIN. metformin 2021-0 Yes [id number] 500mg Take 1 U nivers ER 500 mg 5-31 tablet by ity o f 24 hr 00:00: mouth [place] tablet 00 daily with Medical breakfast. Branch STOP REGULAR METFORMIN. metformin 2021-0 Yes [id number] 500mg Take 1 U nivers ER 500 mg 5-31 tablet by ity o f 24 hr 00:00: mouth [place] tablet 00 daily with Medical breakfast. Branch STOP REGULAR METFORMIN. metformin 2021-0 Yes [id number] 500mg Take 1 U nivers ER 500 mg 5-31 tablet by ity o f 24 hr 00:00: mouth [place] tablet 00 daily with Medical breakfast. Branch STOP REGULAR METFORMIN. metformin 2021-0 Yes [id number] 500mg Take 1 U nivers ER 500 mg 5-31 tablet by ity o f 24 hr 00:00: mouth [place] tablet 00 daily with Medical breakfast. Branch STOP REGULAR METFORMIN. metformin 2021-0 Yes [id number] 500mg Take 1 U nivers ER 500 mg 5-31 tablet by ity o f 24 hr 00:00: mouth [place] tablet 00 daily with Medical breakfast. Branch STOP REGULAR METFORMIN. metformin 2021-0 Yes [id number] 500mg Take 1 U nivers ER 500 mg 5-31 tablet by ity o f 24 hr 00:00: mouth [place] tablet 00 daily with Medical breakfast. Branch STOP REGULAR METFORMIN. metformin 2021-0 Yes [id number] 500mg Take 1 U nivers ER 500 mg 5-31 tablet by ity o f 24 hr 00:00: mouth [place] tablet 00 daily with Medical breakfast. Branch STOP REGULAR METFORMIN. metformin 2021-0 Yes [id number] 500mg Take 1 U nivers ER 500 mg 5-31 tablet by ity o f 24 hr 00:00: mouth [place] tablet 00 daily with Medical breakfast. Branch STOP REGULAR METFORMIN. metformin 2021-0 Yes [id number] 500mg Take 1 U nivers ER 500 mg 5-31 tablet by ity o f 24 hr 00:00: mouth [place] tablet 00 daily with Medical breakfast. Branch STOP REGULAR METFORMIN. metformin 2021-0 Yes [id number] 500mg Take 1 U nivers ER 500 mg 5-31 tablet by ity o f 24 hr 00:00: mouth [place] tablet 00 daily with Medical breakfast. Branch STOP REGULAR METFORMIN. metformin 2021-0 Yes [id number] 500mg Take 1 U nivers ER 500 mg 5-31 tablet by ity o f 24 hr 00:00: mouth [place] tablet 00 daily with Medical breakfast. Branch STOP REGULAR METFORMIN. metformin 2021-0 Yes [id number] 500mg Take 1 U nivers ER 500 mg 5-31 tablet by ity o f 24 hr 00:00: mouth [place] tablet 00 daily with Medical breakfast. Branch STOP REGULAR METFORMIN. metformin 2021-0 Yes [id number] 500mg Take 1 U nivers ER 500 mg 5-31 tablet by ity o f 24 hr 00:00: mouth [place] tablet 00 daily with Medical breakfast. Branch STOP REGULAR METFORMIN. metformin 2021-0 Yes [id number] 500mg Take 1 U nivers ER 500 mg 5-31 tablet by ity o f 24 hr 00:00: mouth [place] tablet 00 daily with Medical breakfast. Branch STOP REGULAR METFORMIN. metformin 2021-0 Yes [id number] 500mg Take 1 U nivers ER 500 mg 5-31 tablet by ity o f 24 hr 00:00: mouth [place] tablet 00 daily with Medical breakfast. Branch STOP REGULAR METFORMIN. metformin 2021-0 Yes [id number] 500mg Take 1 U nivers ER 500 mg 5-31 tablet by ity o f 24 hr 00:00: mouth [place] tablet 00 daily with Medical breakfast. Branch STOP REGULAR METFORMIN. metformin 2021-0 Yes [id number] 500mg Take 1 U nivers ER 500 mg 5-31 tablet by ity o f 24 hr 00:00: mouth [place] tablet 00 daily with Medical breakfast. Branch STOP REGULAR METFORMIN. metformin 2021-0 Yes [id number] 500mg Take 1 U nivers ER 500 mg 5-31 tablet by ity o f 24 hr 00:00: mouth [place] tablet 00 daily with Medical breakfast. Branch STOP REGULAR METFORMIN. metformin 2021-0 Yes [id number] 500mg Take 1 U nivers ER 500 mg 5-31 tablet by ity o f 24 hr 00:00: mouth [place] tablet 00 daily with Medical breakfast. Branch STOP REGULAR METFORMIN. metformin 2021-0 Yes [id number] 500mg Take 1 U nivers ER 500 mg 5-31 tablet by ity o f 24 hr 00:00: mouth [place] tablet 00 daily with Medical breakfast. Branch STOP REGULAR METFORMIN. metformin 2021-0 Yes [id number] 500mg Take 1 U nivers ER 500 mg 5-31 tablet by ity o f 24 hr 00:00: mouth [place] tablet 00 daily with Medical breakfast. Branch STOP REGULAR METFORMIN. metformin 2021-0 Yes [id number] 500mg Take 1 U nivers ER 500 mg 5-31 tablet by ity o f 24 hr 00:00: mouth [place] tablet 00 daily with Medical breakfast. Branch STOP REGULAR METFORMIN. metformin 2021-0 Yes [id number] 500mg Take 1 U nivers ER 500 mg 5-31 tablet by ity o f 24 hr 00:00: mouth [place] tablet 00 daily with Medical breakfast. Branch STOP REGULAR METFORMIN. metformin 2021-0 Yes [id number] 500mg Take 1 U nivers ER 500 mg 5-31 tablet by ity o f 24 hr 00:00: mouth [place] tablet 00 daily with Medical breakfast. Branch STOP REGULAR METFORMIN. metformin 2021-0 Yes [id number] 500mg Take 1 U nivers ER 500 mg 5-31 tablet by ity o f 24 hr 00:00: mouth [place] tablet 00 daily with Medical breakfast. Branch STOP REGULAR METFORMIN. metformin 2021-0 Yes [id number] 500mg Take 1 U nivers ER 500 mg 5-31 tablet by ity o f 24 hr 00:00: mouth [place] tablet 00 daily with Medical breakfast. Branch STOP REGULAR METFORMIN. metformin 2021-0 2022- No [id number] 500mg Take 1 [facility] ER 500 mg 5-31 10-13 tablet by ity of 24 hr 00:00: 00:00 mouth [place] tablet 00 :00 daily with Medical breakfast. Branch STOP REGULAR METFORMIN. ibuprofen 2022-0 Yes [id number] 600mg Take 1 [facility] 600 mg 5-19 [id number] tablet by ity of tablet 00:00: mouth [place] 00 every 6 Medical (six) Branch hours as needed for Pain (scale 4-6). ibuprofen 2022-0 Yes [id number] 600mg Take 1 [facility] 600 mg 5-19 [id number] tablet by ity of tablet 00:00: mouth [place] 00 every 6 Medical (six) Branch hours as needed for Pain (scale 4-6). ibuprofen 2022-0 Yes [id number] 600mg Take 1 [facility] 600 mg 5-19 [id number] tablet by ity of tablet 00:00: mouth [place] 00 every 6 Medical (six) Branch hours as needed for Pain (scale 4-6). ibuprofen 2022-0 Yes [id number] 600mg Take 1 [facility] 600 mg 5-19 [id number] tablet by ity of tablet 00:00: mouth [place] 00 every 6 Medical (six) Branch hours as needed for Pain (scale 4-6). ibuprofen 2022-0 Yes [id number] 600mg Take 1 [facility] 600 mg 5-19 [id number] tablet by ity of tablet 00:00: mouth [place] 00 every 6 Medical (six) Branch hours as needed for Pain (scale 4-6). ibuprofen 2022-0 Yes [id number] 600mg Take 1 [facility] 600 mg 5-19 [id number] tablet by ity of tablet 00:00: mouth [place] 00 every 6 Medical (six) Branch hours as needed for Pain (scale 4-6). ibuprofen 2022-0 Yes [id number] 600mg Take 1 [facility] 600 mg 5-19 [id number] tablet by ity of tablet 00:00: mouth [place] 00 every 6 Medical (six) Branch hours as needed for Pain (scale 4-6). ibuprofen 2022-0 Yes [id number] 600mg Take 1 [facility] 600 mg 5-19 [id number] tablet by ity of tablet 00:00: mouth [place] 00 every 6 Medical (six) Branch hours as needed for Pain (scale 4-6). ibuprofen 2022-0 Yes [id number] 600mg Take 1 [facility] 600 mg 5-19 [id number] tablet by ity of tablet 00:00: mouth [place] 00 every 6 Medical (six) Branch hours as needed for Pain (scale 4-6). ibuprofen 2022-0 Yes [id number] 600mg Take 1 [facility] 600 mg 5-19 [id number] tablet by ity of tablet 00:00: mouth [place] 00 every 6 Medical (six) Branch hours as needed for Pain (scale 4-6). ibuprofen 2022-0 Yes [id number] 600mg Take 1 [facility] 600 mg 5-19 [id number] tablet by ity of tablet 00:00: mouth [place] 00 every 6 Medical (six) Branch hours as needed for Pain (scale 4-6). ibuprofen 2022-0 Yes [id number] 600mg Take 1 [facility] 600 mg 5-19 [id number] tablet by ity of tablet 00:00: mouth [place] 00 every 6 Medical (six) Branch hours as needed for Pain (scale 4-6). ibuprofen 2022-0 Yes [id number] 600mg Take 1 [facility] 600 mg 5-19 [id number] tablet by ity of tablet 00:00: mouth [place] 00 every 6 Medical (six) Branch hours as needed for Pain (scale 4-6). ibuprofen 2022-0 Yes [id number] 600mg Take 1 [facility] 600 mg 5-19 [id number] tablet by ity of tablet 00:00: mouth [place] 00 every 6 Medical (six) Branch hours as needed for Pain (scale 4-6). ibuprofen 2022-0 Yes [id number] 600mg Take 1 [facility] 600 mg 5-19 [id number] tablet by ity of tablet 00:00: mouth [place] 00 every 6 Medical (six) Branch hours as needed for Pain (scale 4-6). ibuprofen 2022-0 Yes [id number] 600mg Take 1 [facility] 600 mg 5-19 [id number] tablet by ity of tablet 00:00: mouth [place] 00 every 6 Medical (six) Branch hours as needed for Pain (scale 4-6). ibuprofen 2022-0 Yes [id number] 600mg Take 1 [facility] 600 mg 5-19 [id number] tablet by ity of tablet 00:00: mouth [place] 00 every 6 Medical (six) Branch hours as needed for Pain (scale 4-6). ibuprofen 2022-0 Yes [id number] 600mg Take 1 [facility] 600 mg 5-19 [id number] tablet by ity of tablet 00:00: mouth [place] 00 every 6 Medical (six) Branch hours as needed for Pain (scale 4-6). ibuprofen 2022-0 Yes [id number] 600mg Take 1 [facility] 600 mg 5-19 [id number] tablet by ity of tablet 00:00: mouth [place] 00 every 6 Medical (six) Branch hours as needed for Pain (scale 4-6). ibuprofen 2022-0 Yes [id number] 600mg Take 1 [facility] 600 mg 5-19 [id number] tablet by ity of tablet 00:00: mouth [place] 00 every 6 Medical (six) Branch hours as needed for Pain (scale 4-6). ibuprofen 2022-0 Yes [id number] 600mg Take 1 [facility] 600 mg 5-19 [id number] tablet by ity of tablet 00:00: mouth [place] 00 every 6 Medical (six) Branch hours as needed for Pain (scale 4-6). ibuprofen 2022-0 Yes [id number] 600mg Take 1 [facility] 600 mg 5-19 [id number] tablet by ity of tablet 00:00: mouth [place] 00 every 6 Medical (six) Branch hours as needed for Pain (scale 4-6). ibuprofen 2022-0 Yes [id number] 600mg Take 1 [facility] 600 mg 5-19 [id number] tablet by ity of tablet 00:00: mouth [place] 00 every 6 Medical (six) Branch hours as needed for Pain (scale 4-6). ibuprofen 2022-0 Yes [id number] 600mg Take 1 [facility] 600 mg 5-19 [id number] tablet by ity of tablet 00:00: mouth [place] 00 every 6 Medical (six) Branch hours as needed for Pain (scale 4-6). ibuprofen 2022-0 Yes [id number] 600mg Take 1 [facility] 600 mg 5-19 [id number] tablet by ity of tablet 00:00: mouth [place] 00 every 6 Medical (six) Branch hours as needed for Pain (scale 4-6). ibuprofen 2022-0 Yes [id number] 600mg Take 1 [facility] 600 mg 5-19 [id number] tablet by ity of tablet 00:00: mouth [place] 00 every 6 Medical (six) Branch hours as needed for Pain (scale 4-6). ibuprofen 2022-0 Yes [id number] 600mg Take 1 [facility] 600 mg 5-19 [id number] tablet by ity of tablet 00:00: mouth [place] 00 every 6 Medical (six) Branch hours as needed for Pain (scale 4-6). ibuprofen 2022-0 Yes [id number] 600mg Take 1 [facility] 600 mg 5-19 [id number] tablet by ity of tablet 00:00: mouth [place] 00 every 6 Medical (six) Branch hours as needed for Pain (scale 4-6). ibuprofen 2022-0 Yes [id number] 600mg Take 1 [facility] 600 mg 5-19 [id number] tablet by ity of tablet 00:00: mouth [place] 00 every 6 Medical (six) Branch hours as needed for Pain (scale 4-6). ibuprofen 2022-0 Yes [id number] 600mg Take 1 [facility] 600 mg 5-19 [id number] tablet by ity of tablet 00:00: mouth [place] 00 every 6 Medical (six) Branch hours as needed for Pain (scale 4-6). ibuprofen 2-0 Yes [id number] 600mg Take 1 [facility] 600 mg 5-19 [id number] tablet by ity of tablet 00:00: mouth [place] 00 every 6 Medical (six) Branch hours as needed for Pain (scale 4-6). ibuprofen 2021-0 Yes [id number] 600mg Take 1 [facility] 600 mg 5-19 [id number] tablet by ity of tablet 00:00: mouth [place] 00 every 6 Medical (six) Branch hours as needed for Pain (scale 4-6). ibuprofen 2021-0 Yes [id number] 600mg Take 1 [facility] 600 mg 5-19 [id number] tablet by ity of tablet 00:00: mouth [place] 00 every 6 Medical (six) Branch hours as needed for Pain (scale 4-6). ibuprofen 2-0 Yes [id number] 600mg Take 1 [facility] 600 mg 5-19 [id number] tablet by ity of tablet 00:00: mouth [place] 00 every 6 Medical (six) Branch hours as needed for Pain (scale 4-6). ibuprofen 2-0 Yes [id number] 600mg Take 1 [facility] 600 mg 5-19 [id number] tablet by ity of tablet 00:00: mouth [place] 00 every 6 Medical (six) Branch hours as needed for Pain (scale 4-6). ibuprofen 2022-0 Yes [id number] 600mg Take 1 [facility] 600 mg 5-19 [id number] tablet by ity of tablet 00:00: mouth [place] 00 every 6 Medical (six) Branch hours as needed for Pain (scale 4-6). ibuprofen 2022-0 2022- No [id number] 600mg Take 1 [facility] 600 mg 5-19 - [id number] tablet by ity o f tablet 00:00: 00:00 mouth [place] 00 :00 every 6 Medical (six) Branch hours as needed for Pain (scale 4-6). ibuprofen 2021-0 2- No [id number] 600mg Take 1 [facility] 600 mg 02-11 [id number] tablet by ity o f tablet 00:00: 00:00 mouth [place] 00 :00 every 6 Medical (six) Branch hours as needed for Pain (scale 4-6). ibuprofen 2021-0 2- No [id number] 600mg Take 1 [facility] 600 mg 02-11 [id number] tablet by ity o f tablet 00:00: 00:00 mouth [place] 00 :00 every 6 Medical (six) Branch hours as needed for Pain (scale 4-6). topiramate 2021-0 Yes [id number] 50mg Take 2 [facility] 25 mg 5-16 tablets by [facility] tablet 00:00: [address] (two) Medical times Branch daily. topiramate 2021-0 Yes [id number] 50mg Take 2 [facility] 25 mg 5-16 tablets by [facility] tablet 00:00: [address] (two) Medical times Branch daily. topiramate 2021-0 Yes [id number] 50mg Take 2 [facility] 25 mg 5-16 tablets by [facility] tablet 00:00: [address] (two) Medical times Branch daily. topiramate 2021-0 Yes [id number] 50mg Take 2 [facility] 25 mg 5-16 tablets by [facility] of tablet 00:00: [address] (two) Medical times Branch daily. topiramate 2021-0 Yes [id number] 50mg Take 2 [facility] 25 mg 5-16 tablets by [facility] of tablet 00:00: mouth [address] [place] [address] (two) Medical times Branch daily. topiramate 2-0 Yes [id number] 50mg Take 2 [facility] 25 mg 5-16 tablets by [facility] of tablet 00:00: [address] (two) Medical times Branch daily. topiramate 2022-0 Yes [id number] 50mg Take 2 [facility] 25 mg 5-16 tablets by [facility] of tablet 00:00: [address] (two) Medical times Branch daily. topiramate 2-0 Yes [id number] 50mg Take 2 [facility] 25 mg 5-16 tablets by [facility] of tablet 00:00: mouth 2 (two) Medical times Branch daily. topiramate 2022-0 Yes [id number] 50mg Take 2 [facility] 25 mg 5-16 tablets by [facility] of tablet 00:00: mouth 2 (two) Medical times Branch daily. SUMAtriptan 2-0 Yes [id number] 50mg Take 1 [facility] 50 mg 5-16 tablet by [facility] of tablet 00:00: mouth as [place] 00 needed for Medical Migraine. Branch topiramate 2-0 Yes [id number] 50mg Take 2 [facility] 25 mg 5-16 tablets by [facility] of tablet 00:00: mouth 2 (two) Medical times Branch daily. SUMAtriptan 2-0 Yes [id number] 50mg Take 1 [facility] 50 mg 5-16 tablet by [facility] of tablet 00:00: mouth as [place] 00 needed for Medical Migraine. Branch topiramate 2-0 Yes [id number] 50mg Take 2 [facility] 25 mg 5-16 tablets by [facility] of tablet 00:00: mouth (two) Medical times Branch daily. SUMAtriptan 2-0 Yes [id number] 50mg Take 1 [facility] 50 mg 5-16 tablet by [facility] tablet 00:00: mouth as [place] 00 needed for Medical Migraine. Branch topiramate 2-0 Yes [id number] 50mg Take 2 [facility] 25 mg 5-16 tablets by [facility] of tablet 00:00: mouth 2 (two) Medical times Branch daily. SUMAtriptan 2-0 Yes [id number] 50mg Take 1 [facility] 50 mg 5-16 tablet by [facility] of tablet 00:00: mouth as [place] 00 needed for Medical Migraine. Branch topiramate 2-0 Yes [id number] 50mg Take 2 [facility] 25 mg 5-16 tablets by [facility] of tablet 00:00: mouth 2 (two) Medical times Branch daily. SUMAtriptan 2022-0 Yes [id number] 50mg Take 1 [facility] 50 mg 5-16 tablet by [facility] of tablet 00:00: mouth as [place] 00 needed for Medical Migraine. Branch topiramate 2-0 Yes [id number] 50mg Take 2 [facility] 25 mg 5-16 tablets by [facility] of tablet 00:00: mouth 2 (two) Medical times Branch daily. SUMAtriptan 2022-0 Yes [id number] 50mg Take 1 [facility] 50 mg 5-16 tablet by [facility] of tablet 00:00: mouth as 00 needed for Medical Migraine. Branch topiramate 2021-0 Yes [id number] 50mg Take 2 [facility] 25 mg 5-16 tablets by [facility] of tablet 00:00: mouth 2 [place] 00 (two) Medical times Branch daily. topiramate 2021-0 Yes [id number] 50mg Take 2 [facility] 25 mg 5-16 tablets by [facility] of tablet 00:00: mouth 2 00 (two) Medical times Branch daily. topiramate 2021-0 Yes [id number] 50mg Take 2 [facility] 25 mg 5-16 tablets by [facility] of tablet 00:00: mouth 2 (two) Medical times Branch daily. topiramate 2021-0 Yes [id number] 50mg Take 2 [facility] 25 mg 5-16 tablets by [facility] of tablet 00:00: mouth 2 00 (two) Medical times Branch daily. topiramate 2021-0 Yes [id number] 50mg Take 2 [facility] 25 mg 5-16 tablets by [facility] of tablet 00:00: mouth 2 [place] (two) Medical times Branch daily. topiramate 2021-0 Yes [id number] 50mg Take 2 [facility] 25 mg 5-16 tablets by [facility] of tablet 00:00: mouth 2 (two) Medical times Branch daily. topiramate 2021-0 2021- No [id number] 50mg Take 2 [facility] 25 mg 5-16 09-01 tablets by [facility] of tablet 00:00: 00:00 mouth 2 [place] 00 :00 (two) Medical times Branch daily. SUMAtriptan 2021-0 2021- No [id number] 50mg Take 1 [facility] 50 mg 5-16 [...] PadM 5-08 Dose to ity of 00:00: [facility](s) [place] 00 before Medical meals. Branch ALCOHOL 2021-0 Yes 1{dose} Apply 1 [facility] ers PADS PadM 5-08 Dose to ity of 00:00: [facility](s) [place] 00 before Medical meals. Branch ALCOHOL 2021-0 Yes 1{dose} Apply 1 [facility] ers PADS PadM 5-08 Dose to ity of 00:00: [facility](s) [place] 00 before Medical meals. Branch ALCOHOL 2021-0 Yes 1{dose} Apply 1 [facility] ers PADS PadM 5-08 Dose to ity of 00:00: [facility](s) [place] 00 before Medical meals. Branch ALCOHOL 2021-0 Yes 1{dose} Apply 1 [facility] ers PADS PadM 5-08 Dose to ity of 00:00: [facility](s) [place] 00 before Medical meals. Branch ALCOHOL 2021-0 Yes 1{dose} Apply 1 [facility] ers PADS PadM 5-08 Dose to ity of 00:00: area(s) [place] 00 before Medical meals. Branch ALCOHOL 2021-0 Yes 1{dose} Apply 1 [facility] ers PADS PadM 5-08 Dose to ity of 00:00: [facility](s) [place] 00 before Medical meals. Branch ALCOHOL 2021-0 Yes 1{dose} Apply 1 [facility] ers PADS PadM 5-08 Dose to ity of 00:00: [facility](s) [place] 00 before Medical meals. Branch ALCOHOL 2021-0 Yes 1{dose} Apply 1 [facility] ers PADS PadM 5-08 Dose to ity of 00:00: area(s) [place] 00 before Medical meals. Branch ALCOHOL Yes 1{dose} Apply 1 [facility] ers PADS PadM 5-08 Dose to ity of 00:00: [facility](s) [place] 00 before Medical meals. Branch ALCOHOL Yes 1{dose} Apply 1 [facility] ers PADS PadM 5-08 Dose to ity of 00:00: [facility](s) [place] 00 before Medical meals. Branch ALCOHOL Yes 1{dose} Apply 1 [facility] ers PADS PadM 5-08 Dose to ity of 00:00: area(s) [place] 00 before Medical meals. Branch ALCOHOL Yes 1{dose} Apply 1 [facility] ers PADS PadM 5-08 Dose to ity of 00:00: [facility](s) [place] 00 before Medical meals. Branch ALCOHOL Yes 1{dose} Apply 1 [facility] ers PADS PadM 5-08 Dose to ity of 00:00: [facility](s) [place] 00 before Medical meals. Branch ALCOHOL Yes 1{dose} Apply 1 [facility] ers PADS PadM 5-08 Dose to ity of 00:00: [facility](s) [place] 00 before Medical meals. Branch ALCOHOL Yes 1{dose} Apply 1 [facility] ers PADS PadM 5-08 Dose to ity of 00:00: [facility](s) [place] 00 before Medical meals. Branch ALCOHOL Yes 1{dose} Apply 1 [facility] ers PADS PadM 5-08 Dose to ity of 00:00: [facility](s) [place] 00 before Medical meals. Branch ALCOHOL 2021- No 1{dose} Apply 1 [facility] vers PADS PadM 5-08 -22 Dose to ity of 00:00: 00:00 [facility](s) [place] 00 :00 before Medical meals. Branch ALCOHOL 2021- No 1{dose} Apply 1 [facility] vers PADS PadM 5-08 -22 Dose to ity of 00:00: 00:00 [facility](s) [place] 00 :00 before Medical meals. Branch ALCOHOL 2021- No 1{dose} Apply 1 [facility] vers PADS PadM 5-08 -22 Dose to ity of 00:00: 00:00 [facility](s) [place] 00 :00 before Medical meals. Branch pregabalin 2022-0 Yes [id number] 150mg Take 1 [facility] 150 mg 4-29 capsule by ity of capsule 00:00: mouth 3 (three) Medical times Branch daily. busPIRone 2021-0 Yes [id number] 20mg Take 2 [facility] [place] 10 mg 4-29 tablets by [facility] of tablet 00:00: mouth (two) Medical times Branch daily. citalopram 2021-0 Yes [id number] 40mg Take 1 [facility] n[facility] 40 mg 4-29 tablet by [facility] of tablet 00:00: mouth 00 daily. Medical Branch pregabalin 2021-0 Yes [id number] 150mg Take 1 [facility] 150 mg 4-29 capsule by it[facility] of capsule 00:00: mouth (three) Medical times Branch daily. busPIRone 2021-0 Yes [id number] 20mg Take 2 Un [place] 10 mg 4-29 tablets by [facility] of tablet 00:00: mouth (two) Medical times Branch daily. citalopram 2021-0 Yes [id number] 40mg Take 1 [facility] nivers 40 mg 4-29 tablet by [facility] of tablet 00:00: mouth daily. Medical Branch pregabalin 2021-0 Yes [id number] 150mg Take 1 [facility] 150 mg 4-29 capsule by [facility] of capsule 00:00: mouth (three) Medical times Branch daily. busPIRone 2021-0 Yes [id number] 20mg Take 2 [facility] [place] 10 mg 4-29 tablets by [facility] of tablet 00:00: mouth (two) Medical times Branch daily. citalopram 2021-0 Yes [id number] 40mg Take 1 [facility] nivers 40 mg 4-29 tablet by [facility] of tablet 00:00: mouth 00 daily. Medical Branch pregabalin 2021-0 Yes [id number] 150mg Take 1 [facility] 150 mg 4-29 capsule by it[facility] of capsule 00:00: mouth 3 (three) Medical times Branch daily. busPIRone 2021-0 Yes [id number] 20mg Take 2 Un [place] 10 mg 4-29 tablets by [facility] of tablet 00:00: mouth (two) Medical times Branch daily. citalopram 2021-0 Yes [id number] 40mg Take 1 [facility] nivers 40 mg 4-29 tablet by [facility] of tablet 00:00: mouth 00 daily. Medical Branch pregabalin 2021-0 Yes [id number] 150mg Take 1 [facility] 150 mg 4-29 capsule by it[facility] of capsule 00:00: mouth 3 (three) Medical times Branch daily. busPIRone 2021-0 Yes [id number] 20mg Take 2 Un [place] 10 mg 4-29 tablets by ity of tablet 00:00: mouth (two) Medical times Branch daily. citalopram 2021-0 Yes [id number] 40mg Take 1 [facility] nivers 40 mg 4-29 tablet by it[facility] of tablet 00:00: mouth 00 daily. Medical Branch pregabalin 2021-0 Yes [id number] 150mg Take 1 [facility] 150 mg 4-29 capsule by ity of capsule 00:00: mouth 3 (three) Medical times Branch daily. busPIRone 2021-0 Yes [id number] 20mg Take 2 Un [place] 10 mg 4-29 tablets by [facility] of tablet 00:00: mouth (two) Medical times Branch daily. citalopram 2021-0 Yes [id number] 40mg Take 1 [facility] nivers 40 mg 4-29 tablet by ity of tablet 00:00: mouth 00 daily. Medical Branch pregabalin 2021-0 Yes [id number] 150mg Take 1 [facility] 150 mg 4-29 capsule by ity of capsule 00:00: mouth (three) Medical times Branch daily. busPIRone 2021-0 Yes [id number] 20mg Take 2 Un [place] 10 mg 4-29 tablets by ity of tablet 00:00: mouth (two) Medical times Branch daily. citalopram 2021-0 Yes [id number] 40mg Take 1 U nivers 40 mg 4-29 tablet by ity of tablet 00:00: mouth 00 daily. Medical Branch pregabalin 2021-0 Yes [id number] 150mg Take 1 [facility] 150 mg 4-29 capsule by ity of capsule 00:00: mouth 3 (three) Medical times Branch daily. busPIRone 2021-0 Yes [id number] 20mg Take 2 [facility] [place] 10 mg 4-29 tablets by ity of tablet 00:00: mouth 2 (two) Medical times Branch daily. citalopram 2021-0 Yes [id number] 40mg Take 1 [facility] nivers 40 mg 4-29 tablet by ity of tablet 00:00: mouth 00 daily. Medical Branch pregabalin 2021-0 Yes [id number] 150mg Take 1 [facility] 150 mg 4-29 capsule by ity of capsule 00:00: mouth 3 (three) Medical times Branch daily. busPIRone 2021-0 Yes [id number] 20mg Take 2 [facility] [place] 10 mg 4-29 tablets by ity of tablet 00:00: mouth (two) Medical times Branch daily. citalopram 2021-0 Yes [id number] 40mg Take 1 [facility] nivers 40 mg 4-29 tablet by ity of tablet 00:00: mouth 00 daily. Medical Branch pregabalin 2021-0 Yes [id number] 150mg Take 1 [facility] 150 mg 4-29 capsule by ity of capsule 00:00: mouth (three) Medical times Branch daily. busPIRone 2021-0 Yes [id number] 20mg Take 2 Un [facility] 10 mg 4-29 tablets by ity of tablet 00:00: mouth (two) Medical times Branch daily. citalopram 2021-0 Yes [id number] 40mg Take 1 U nivers 40 mg 4-29 tablet by ity of tablet 00:00: mouth 00 daily. Medical Branch pregabalin 2021-0 Yes [id number] 150mg Take 1 [facility] 150 mg 4-29 capsule by ity of capsule 00:00: mouth 3 (three) Medical times Branch daily. busPIRone 2021-0 Yes [id number] 20mg Take 2 Un [place] 10 mg 4-29 tablets by ity of tablet 00:00: mouth (two) Medical times Branch daily. citalopram 2021-0 Yes [id number] 40mg Take 1 [facility] nivers 40 mg 4-29 tablet by ity of tablet 00:00: mouth 00 daily. Medical Branch pregabalin 2021-0 Yes [id number] 150mg Take 1 [facility] 150 mg 4-29 capsule by ity of capsule 00:00: mouth 3 (three) Medical times Branch daily. busPIRone 2021-0 Yes [id number] 20mg Take 2 Un [place] 10 mg 4-29 tablets by ity of tablet 00:00: mouth 2 (two) Medical times Branch daily. citalopram 2021-0 Yes [id number] 40mg Take 1 U nivers 40 mg 4-29 tablet by ity of tablet 00:00: mouth daily. Medical Branch pregabalin 2021-0 Yes [id number] 150mg Take 1 [facility] 150 mg 4-29 capsule by ity of capsule 00:00: mouth 3 (three) Medical times Branch daily. busPIRone 2021-0 Yes [id number] 20mg Take 2 Un [place] 10 mg 4-29 tablets by ity of tablet 00:00: mouth (two) Medical times Branch daily. citalopram 2021-0 Yes [id number] 40mg Take 1 U nivers 40 mg 4-29 tablet by ity of tablet 00:00: mouth daily. Medical Branch pregabalin 2021-0 Yes [id number] 150mg Take 1 [facility] 150 mg 4-29 capsule by ity of capsule 00:00: mouth 3 (three) Medical times Branch daily. busPIRone 2021-0 Yes [id number] 20mg Take 2 [facility] [place] 10 mg 4-29 tablets by ity of tablet 00:00: mouth (two) Medical times Branch daily. citalopram 2021-0 Yes [id number] 40mg Take 1 [facility] nivers 40 mg 4-29 tablet by ity of tablet 00:00: mouth daily. Medical Branch pregabalin 2021-0 Yes [id number] 150mg Take 1 [facility] 150 mg 4-29 capsule by ity of capsule 00:00: mouth 3 (three) Medical times Branch daily. busPIRone 2-0 Yes [id number] 20mg Take 2 [facility] [place] 10 mg 4-29 tablets by ity of tablet 00:00: mouth 2 (two) Medical times Branch daily. citalopram 2-0 Yes [id number] 40mg Take 1 [facility] nivers 40 mg 4-29 tablet by ity of tablet 00:00: mouth daily. Medical Branch pregabalin 2021-0 Yes [id number] 150mg Take 1 [facility] 150 mg 4-29 capsule by ity of capsule 00:00: mouth 3 (three) Medical times Branch daily. busPIRone 2021-0 Yes [id number] 20mg Take 2 [facility] [place] 10 mg 4-29 tablets by ity of tablet 00:00: mouth (two) Medical times Branch daily. citalopram 2021-0 Yes [id number] 40mg Take 1 [facility] nivers 40 mg 4-29 tablet by [facility]y of tablet 00:00: mouth 00 daily. Medical Branch pregabalin 2021-0 Yes [id number] 150mg Take 1 [facility] 150 mg 4-29 capsule by ity of capsule 00:00: mouth (three) Medical times Branch daily. busPIRone 2021-0 Yes [id number] 20mg Take 2 [facility] [place] 10 mg 4-29 tablets by ity of tablet 00:00: mouth (two) Medical times Branch daily. citalopram 2021-0 Yes [id number] 40mg Take 1 U nivers 40 mg 4-29 tablet by ity of tablet 00:00: mouth daily. Medical Branch pregabalin 2021-0 Yes [id number] 150mg Take 1 [facility] 150 mg 4-29 capsule by ity of capsule 00:00: mouth (three) Medical times Branch daily. busPIRone 2021-0 Yes [id number] 20mg Take 2 Un [place] 10 mg 4-29 tablets by [facility]y of tablet 00:00: mouth (two) Medical times Branch daily. citalopram 2021-0 Yes [id number] 40mg Take 1 U nivers 40 mg 4-29 tablet by ity of tablet 00:00: mouth 00 daily. Medical Branch pregabalin 2021-0 Yes [id number] 150mg Take 1 [facility] 150 mg 4-29 capsule by ity of capsule 00:00: mouth (three) Medical times Branch daily. busPIRone 2021-0 Yes [id number] 20mg Take 2 [facility] [place] 10 mg 4-29 tablets by ity of tablet 00:00: mouth (two) Medical times Branch daily. citalopram 2021-0 Yes [id number] 40mg Take 1 U nivers 40 mg 4-29 tablet by ity of tablet 00:00: mouth 00 daily. Medical Branch pregabalin 2021-0 Yes [id number] 150mg Take 1 [facility] 150 mg 4-29 capsule by ity of capsule 00:00: mouth 3 (three) Medical times Branch daily. busPIRone 2021-0 Yes [id number] 20mg Take 2 [facility] [place] 10 mg 4-29 tablets by ity of tablet 00:00: mouth (two) Medical times Branch daily. citalopram 2021-0 Yes [id number] 40mg Take 1 U nivers 40 mg 4-29 tablet by ity of tablet 00:00: mouth 00 daily. Medical Branch pregabalin 2021-0 Yes [id number] 150mg Take 1 [facility] 150 mg 4-29 capsule by ity of capsule 00:00: mouth (three) Medical times Branch daily. busPIRone 2021-0 Yes [id number] 20mg Take 2 Un [place] 10 mg 4-29 tablets by ity of tablet 00:00: mouth (two) Medical times Branch daily. citalopram 2021-0 Yes [id number] 40mg Take 1 U nivers 40 mg 4-29 tablet by ity of tablet 00:00: mouth daily. Medical Branch pregabalin 2021-0 Yes [id number] 150mg Take 1 [facility] 150 mg 4-29 capsule by ity of capsule 00:00: mouth (three) Medical times Branch daily. busPIRone 2021-0 Yes [id number] 20mg Take 2 [facility] [place] 10 mg 4-29 tablets by ity of tablet 00:00: mouth (two) Medical times Branch daily. citalopram 2021-0 Yes [id number] 40mg Take 1 U nivers 40 mg 4-29 tablet by ity of tablet 00:00: mouth 00 daily. Medical Branch pregabalin 2021-0 Yes [id number] 150mg Take 1 [facility] 150 mg 4-29 capsule by ity of capsule 00:00: mouth 3 (three) Medical times Branch daily. busPIRone 2021-0 Yes [id number] 20mg Take 2 [facility] [place] 10 mg 4-29 tablets by ity of tablet 00:00: mouth (two) Medical times Branch daily. citalopram 2021-0 Yes [id number] 40mg Take 1 U nivers 40 mg 4-29 tablet by ity of tablet 00:00: mouth 00 daily. Medical Branch pregabalin 2021-0 Yes [id number] 150mg Take 1 [facility] 150 mg 4-29 capsule by ity of capsule 00:00: mouth 3 (three) Medical times Branch daily. busPIRone 2021-0 Yes [id number] 20mg Take 2 Un [place] 10 mg 4-29 tablets by ity of tablet 00:00: mouth (two) Medical times Branch daily. citalopram 2021-0 Yes [id number] 40mg Take 1 U nivers 40 mg 4-29 tablet by ity of tablet 00:00: mouth daily. Medical Branch pregabalin 2021-0 Yes [id number] 150mg Take 1 [facility] 150 mg 4-29 capsule by ity of capsule 00:00: mouth (three) Medical times Branch daily. busPIRone 2021-0 Yes [id number] 20mg Take 2 [facility] [place] 10 mg 4-29 tablets by ity of tablet 00:00: mouth (two) Medical times Branch daily. citalopram 2021-0 Yes [id number] 40mg Take 1 U nivers 40 mg 4-29 tablet by ity of tablet 00:00: mouth daily. Medical Branch pregabalin 2021-0 Yes [id number] 150mg Take 1 [facility] 150 mg 4-29 capsule by ity of capsule 00:00: mouth (three) Medical times Branch daily. busPIRone 2-0 Yes [id number] 20mg Take 2 [facility] [place] 10 mg 4-29 tablets by ity of tablet 00:00: mouth (two) Medical times Branch daily. citalopram 2-0 Yes [id number] 40mg Take 1 U nivers 40 mg 4-29 tablet by ity of tablet 00:00: mouth 00 daily. Medical Branch pregabalin 2021-0 Yes [id number] 150mg Take 1 [facility] 150 mg 4-29 capsule by ity of capsule 00:00: mouth (three) Medical times Branch daily. busPIRone 2021-0 Yes [id number] 20mg Take 2 Un [place] 10 mg 4-29 tablets by ity of tablet 00:00: mouth (two) Medical times Branch daily. citalopram 2021-0 Yes [id number] 40mg Take 1 U nivers 40 mg 4-29 tablet by ity of tablet 00:00: mouth daily. Medical Branch pregabalin 2021-0 Yes [id number] 150mg Take 1 [facility] 150 mg 4-29 capsule by ity of capsule 00:00: mouth 3 (three) Medical times Branch daily. busPIRone 2021-0 Yes [id number] 20mg Take 2 [facility] [place] 10 mg 4-29 tablets by ity of tablet 00:00: mouth (two) Medical times Branch daily. citalopram 2021-0 Yes [id number] 40mg Take 1 U nivers 40 mg 4-29 tablet by ity of tablet 00:00: mouth daily. Medical Branch pregabalin 2021-0 Yes [id number] 150mg Take 1 [facility] 150 mg 4-29 capsule by ity of capsule 00:00: mouth 3 (three) Medical times Branch daily. busPIRone 2021-0 Yes [id number] 20mg Take 2 [facility] [place] 10 mg 4-29 tablets by ity of tablet 00:00: mouth (two) Medical times Branch daily. citalopram 2021-0 Yes [id number] 40mg Take 1 U nivers 40 mg 4-29 tablet by ity of tablet 00:00: mouth daily. Medical Branch pregabalin 2021-0 Yes [id number] 150mg Take 1 [facility] 150 mg 4-29 capsule by ity of capsule 00:00: mouth 3 (three) Medical times Branch daily. busPIRone 2021-0 Yes [id number] 20mg Take 2 [facility] [place] 10 mg 4-29 tablets by ity of tablet 00:00: mouth (two) Medical times Branch daily. citalopram 2021-0 Yes [id number] 40mg Take 1 U nivers 40 mg 4-29 tablet by ity of tablet 00:00: mouth 00 daily. Medical Branch pregabalin 2021-0 Yes [id number] 150mg Take 1 [facility] 150 mg 4-29 capsule by ity of capsule 00:00: mouth 3 (three) Medical times Branch daily. busPIRone 2-0 Yes [id number] 20mg Take 2 [facility] [place] 10 mg 4-29 tablets by ity of tablet 00:00: mouth (two) Medical times Branch daily. citalopram 2021-0 Yes [id number] 40mg Take 1 U nivers 40 mg 4-29 tablet by ity of tablet 00:00: mouth 00 daily. Medical Branch pregabalin 2021-0 Yes [id number] 150mg Take 1 [facility] 150 mg 4-29 capsule by ity of capsule 00:00: mouth (three) Medical times Branch daily. busPIRone 2021-0 Yes [id number] 20mg Take 2 [facility] [place] 10 mg 4-29 tablets by ity of tablet 00:00: mouth (two) Medical times Branch daily. citalopram 2021-0 Yes [id number] 40mg Take 1 U nivers 40 mg 4-29 tablet by ity of tablet 00:00: mouth daily. Medical Branch pregabalin 2021-0 Yes [id number] 150mg Take 1 [facility] 150 mg 4-29 capsule by ity of capsule 00:00: mouth (three) Medical times Branch daily. busPIRone 2021-0 Yes [id number] 20mg Take 2 [facility] [place] 10 mg 4-29 tablets by ity of tablet 00:00: mouth (two) Medical times Branch daily. citalopram 2021-0 Yes [id number] 40mg Take 1 U nivers 40 mg 4-29 tablet by ity of tablet 00:00: mouth daily. Medical Branch pregabalin 2021-0 Yes [id number] 150mg Take 1 [facility] 150 mg 4-29 capsule by ity of capsule 00:00: mouth (three) Medical times Branch daily. busPIRone 2-0 Yes [id number] 20mg Take 2 [facility] [place] 10 mg 4-29 tablets by ity of tablet 00:00: mouth (two) Medical times Branch daily. citalopram 2-0 Yes [id number] 40mg Take 1 U nivers 40 mg 4-29 tablet by ity of tablet 00:00: mouth [place] 00 daily. Medical Branch pregabalin 2021-0 Yes [id number] 150mg Take 1 [facility] 150 mg 4-29 capsule by ity of capsule 00:00: mouth 3 (three) Medical times Branch daily. busPIRone 2021-0 Yes [id number] 20mg Take 2 [facility] [place] 10 mg 4-29 tablets by ity of tablet 00:00: mouth 2 (two) Medical times Branch daily. citalopram 2021-0 Yes [id number] 40mg Take 1 U nivers 40 mg 4-29 tablet by ity of tablet 00:00: mouth 00 daily. Medical Branch pregabalin 2021-0 Yes [id number] 150mg Take 1 [facility] 150 mg 4-29 capsule by ity of capsule 00:00: mouth 3 (three) Medical times Branch daily. busPIRone 2021-0 Yes [id number] 20mg Take 2 [facility] [place] 10 mg 4-29 tablets by ity of tablet 00:00: mouth 2 (two) Medical times Branch daily. citalopram 2021-0 Yes [id number] 40mg Take 1 U nivers 40 mg 4-29 tablet by ity of tablet 00:00: mouth 00 daily. Medical Branch pregabalin 2021-0 Yes [id number] 150mg Take 1 [facility] 150 mg 4-29 capsule by ity of capsule 00:00: mouth 3 (three) Medical times Branch daily. busPIRone 2021-0 Yes [id number] 20mg Take 2 [facility] [place] 10 mg 4-29 tablets by ity of tablet 00:00: mouth 2 (two) Medical times Branch daily. citalopram 2021-0 Yes [id number] 40mg Take 1 U nivers 40 mg 4-29 tablet by ity of tablet 00:00: mouth 00 daily. Medical Branch citalopram 2021-0 Yes [id number] 40mg Take 1 U nivers 40 mg 4-29 tablet by ity of tablet 00:00: mouth [place] 00 daily. Medical Branch citalopram 2021-0 Yes [id number] 40mg Take 1 U nivers 40 mg 4-29 tablet by ity of tablet 00:00: mouth [place] 00 daily. Medical Branch citalopram 0 Yes [id number] 40mg Take 1 U nivers 40 mg 4-29 tablet by ity of tablet 00:00: mouth [place] 00 daily. Medical Branch citalopram 0 Yes [id number] 40mg Take 1 U nivers 40 mg 4-29 tablet by ity of tablet 00:00: mouth [place] 00 daily. Medical Branch citalopram 0 Yes [id number] 40mg Take 1 U nivers 40 mg 4-29 tablet by ity of tablet 00:00: mouth [place] 00 daily. Medical Branch citalopram 0 Yes [id number] 40mg Take 1 U nivers 40 mg 4-29 tablet by ity of tablet 00:00: mouth [place] 00 daily. [facility] Branch citalopram 0 Yes [id number] 40mg Take 1 U nivers 40 mg 4-29 tablet by ity of tablet 00:00: mouth [place] 00 daily. Medical Branch citalopram 0 Yes [id number] 40mg Take 1 U nivers 40 mg 4-29 tablet by ity of tablet 00:00: mouth [place] 00 daily. Medical Branch citalopram 0 Yes [id number] 40mg Take 1 U nivers 40 mg 4-29 tablet by ity of tablet 00:00: mouth [place] 00 daily. Medical Branch citalopram 0 Yes [id number] 40mg Take 1 U nivers 40 mg 4-29 tablet by ity of tablet 00:00: mouth [place] 00 daily. Medical Branch citalopram 0 Yes [id number] 40mg Take 1 U nivers 40 mg 4-29 tablet by ity of tablet 00:00: mouth [place] 00 daily. [facility] Branch citalopram 0 Yes [id number] 40mg Take 1 U nivers 40 mg 4-29 tablet by ity of tablet 00:00: mouth [place] 00 daily. [facility] Branch citalopram 0 Yes [id number] 40mg Take 1 U nivers 40 mg 4-29 tablet by ity of tablet 00:00: mouth [place] 00 daily. [facility] Branch citalopram 0 Yes [id number] 40mg Take 1 U nivers 40 mg 4-29 tablet by ity of tablet 00:00: mouth [place] 00 daily. [facility] Branch citalopram 0 Yes [id number] 40mg Take 1 U nivers 40 mg 4-29 tablet by ity of tablet 00:00: mouth [place] 00 daily. [facility] Branch citalopram 0 Yes [id number] 40mg Take 1 [facility] n[facility] 40 mg 4-29 tablet by ity of tablet 00:00: mouth [place] 00 daily. [facility] Branch citalopram 0 Yes [id number] 40mg Take 1 U n[facility] 40 mg 4-29 tablet by ity of tablet 00:00: mouth [place] 00 daily. [facility] Branch citalopram 0 Yes [id number] 40mg Take 1 U nivers 40 mg 4-29 tablet by ity of tablet 00:00: mouth [place] 00 daily. [facility] Branch citalopram 0 Yes [id number] 40mg Take 1 U nivers 40 mg 4-29 tablet by ity of tablet 00:00: mouth [place] 00 daily. [facility] Branch citalopram 0 Yes [id number] 40mg Take 1 U nivers 40 mg 4-29 tablet by [facility]y of tablet 00:00: mouth [place] 00 daily. [facility] citalopram 0 Yes [id number] 40mg Take 1 [facility] nivers 40 mg 4-29 tablet by ity of tablet 00:00: mouth [place] 00 daily. [facility] pregabalin 0 Yes [id number] 150mg Take 1 [facility] 150 mg 4-29 capsule by [facility] of capsule 00:00: mouth 3 00 (three) Medical times Branch daily. busPIRone 0 Yes [id number] 20mg Take 2 Un [place] 10 mg 4-29 tablets by ity of tablet 00:00: mouth 2 00 (two) Medical times Branch daily. citalopram 0 Yes [id number] 40mg Take 1 [facility] nivers 40 mg 4-29 tablet by ity of tablet 00:00: mouth [place] 00 daily. [facility] pregabalin 0 Yes [id number] 150mg Take 1 [facility] 150 mg 4-29 capsule by [facility] of capsule 00:00: mouth 3 [place] 00 (three) Medical times Branch daily. busPIRone 2021-0 Yes [id number] 20mg Take 2 [facility] [place] 10 mg 4-29 tablets by [facility] of tablet 00:00: mouth (two) Medical times Branch daily. citalopram 2021-0 Yes [id number] 40mg Take 1 [facility] nivers 40 mg 4-29 tablet by [facility] of tablet 00:00: mouth daily. [facility] pregabalin 2021-0 Yes [id number] 150mg Take 1 [facility] 150 mg 4-29 capsule by [facility] of capsule 00:00: mouth (three) Medical times Branch daily. busPIRone 2021-0 Yes [id number] 20mg Take 2 [facility] [place] 10 mg 4-29 tablets by [facility] of tablet 00:00: mouth (two) Medical times [facility] daily. citalopram 2021-0 Yes [id number] 40mg Take 1 [facility] nivers 40 mg 4-29 tablet by [facility]y of tablet 00:00: mouth daily. [facility] pregabalin 2021-0 Yes [id number] 150mg Take 1 [facility] 150 mg 4-29 capsule by [facility] of capsule 00:00: mouth (three) Medical times Branch daily. busPIRone 2021-0 Yes [id number] 20mg Take 2 [facility] [place] 10 mg 4-29 tablets by [facility]y of tablet 00:00: mouth (two) Medical times Branch daily. citalopram 2021-0 Yes [id number] 40mg Take 1 [facility] nivers 40 mg 4-29 tablet by [facility] of tablet 00:00: mouth daily. [facility] pregabalin 2021-0 Yes [id number] 150mg Take 1 [facility] 150 mg 4-29 capsule by [facility] of capsule 00:00: mouth (three) Medical times Branch daily. busPIRone 2021-0 Yes [id number] 20mg Take 2 [facility] [place] 10 mg 4-29 tablets by [facility] of tablet 00:00: mouth (two) Medical times [facility] daily. citalopram 2021-0 Yes [id number] 40mg Take 1 [facility] nivers 40 mg 4-29 tablet by [facility]y of tablet 00:00: mouth 00 daily. [facility] pregabalin 2021-0 Yes [id number] 150mg Take 1 [facility] 150 mg 4-29 capsule by [facility] of capsule 00:00: mouth 3 (three) Medical times Branch daily. busPIRone 2021-0 Yes [id number] 20mg Take 2 [facility] [place] 10 mg 4-29 tablets by [facility] of tablet 00:00: mouth (two) Medical times [facility] daily. citalopram 2021-0 Yes [id number] 40mg Take 1 [facility] nivers 40 mg 4-29 tablet by [facility] of tablet 00:00: mouth daily. [facility] pregabalin 2021-0 Yes [id number] 150mg Take 1 [facility] 150 mg 4-29 capsule by [facility] of capsule 00:00: mouth 3 (three) Medical times [facility] daily. busPIRone 2021-0 Yes [id number] 20mg Take 2 [facility] [place] 10 mg 4-29 tablets by [facility] of tablet 00:00: mouth (two) Medical times [facility] daily. citalopram 2021-0 Yes [id number] 40mg Take 1 [facility] nivers 40 mg 4-29 tablet by [facility] of tablet 00:00: mouth daily. [facility] pregabalin 2021-0 Yes [id number] 150mg Take 1 [facility] 150 mg 4-29 capsule by [facility] of capsule 00:00: mouth (three) Medical times Branch daily. busPIRone 2021-0 Yes [id number] 20mg Take 2 [facility] [place] 10 mg 4-29 tablets by [facility] of tablet 00:00: mouth (two) Medical times [facility] daily. citalopram 2021-0 Yes [id number] 40mg Take 1 [facility] nivers 40 mg 4-29 tablet by [facility]y of tablet 00:00: mouth daily. [facility] pregabalin 2021-0 Yes [id number] 150mg Take 1 [facility] 150 mg 4-29 capsule by [facility]y of capsule 00:00: mouth (three) Medical times Branch daily. busPIRone 2-0 Yes [id number] 20mg Take 2 [facility] [place] 10 mg 4-29 tablets by [facility]y of tablet 00:00: mouth (two) Medical times [facility] daily. citalopram 2-0 Yes [id number] 40mg Take 1 [facility] nivers 40 mg 4-29 tablet by [facility]y of tablet 00:00: mouth 00 daily. [facility] pregabalin 0 Yes [id number] 150mg Take 1 [facility] 150 mg 4-29 capsule by ity of capsule 00:00: mouth 3 00 (three) Medical times Branch daily. busPIRone 2021-0 Yes [id number] 20mg Take 2 [facility] [place] 10 mg 4-29 tablets by ity of tablet 00:00: mouth 2 00 (two) Medical times Branch daily. citalopram 2021-0 Yes [id number] 40mg Take 1 [facility] nivers 40 mg 4-29 tablet by ity of tablet 00:00: mouth [place] 00 daily. [facility] pregabalin 0 Yes [id number] 150mg Take 1 [facility] 150 mg 4-29 capsule by ity of capsule 00:00: mouth 3 00 (three) Medical times Branch daily. busPIRone 0 Yes [id number] 20mg Take 2 [facility] [place] 10 mg 4-29 tablets by [facility]y of tablet 00:00: mouth 2 00 (two) Medical times [facility] daily. citalopram 0 Yes [id number] 40mg Take 1 [facility] nivers 40 mg 4-29 tablet by [facility]y of tablet 00:00: mouth [place] 00 daily. [facility] pregabalin 2021- No [id number] 150mg Take 1 [facility] 150 mg 4-29 10-13 capsule by ity of capsule 00:00: 00:00 mouth 3 [place] 00 :00 (three) Medical times Branch daily. busPIRone 2021-0 2- No [id number] 20mg Take 2 [facility] nivers 10 mg 4-29 10-13 tablets by ity of tablet 00:00: 00:00 mouth 2 [place] 00 :00 (two) Medical times Branch daily. pantoprazol 2021-0 Yes [id number] 40mg Take 1 [facility] e 40 mg EC 4-04 tablet by ity of tablet 00:00: mouth [place] 00 daily. [facility] pantoprazol 2021-0 Yes [id number] 40mg Take 1 [facility] e 40 mg EC 4-04 tablet by ity of tablet 00:00: mouth [place] 00 daily. [facility] pantoprazol 2021-0 Yes [id number] 40mg Take 1 [facility] e 40 mg EC 4-04 tablet by ity of tablet 00:00: mouth [place] 00 daily. [facility] pantoprazol 2021-0 Yes [id number] 40mg Take 1 [facility] e 40 mg EC 4-04 tablet by ity of tablet 00:00: mouth [place] 00 daily. [facility] pantoprazol 2021-0 Yes [id number] 40mg Take 1 [facility] e 40 mg EC 4-04 tablet by ity of tablet 00:00: mouth [place] 00 daily. [facility] pantoprazol 2021-0 Yes [id number] 40mg Take 1 [facility] e 40 mg EC 4-04 tablet by ity of tablet 00:00: mouth [place] 00 daily. [facility] pantoprazol 2021-0 Yes [id number] 40mg Take 1 [facility] e 40 mg EC 4-04 tablet by ity of tablet 00:00: mouth [place] 00 daily. [facility] pantoprazol Yes [id number] 40mg Take 1 [facility] e 40 mg EC 4-04 tablet by ity of tablet 00:00: mouth [place] 00 daily. [facility] pantoprazol 2021-0 Yes [id number] 40mg Take 1 [facility] e 40 mg EC 4-04 tablet by ity of tablet 00:00: mouth [place] 00 daily. [facility] pantoprazol Yes [id number] 40mg Take 1 [facility] e 40 mg EC 4-04 tablet by ity of tablet 00:00: mouth [place] 00 daily. [facility] pantoprazol Yes [id number] 40mg Take 1 [facility] e 40 mg EC 4-04 tablet by ity of tablet 00:00: mouth [place] 00 daily. [facility] pantoprazol 2021-0 Yes [id number] 40mg Take 1 [facility] e 40 mg EC 4-04 tablet by ity of tablet 00:00: mouth [place] 00 daily. [facility] pantoprazol 2021-0 Yes [id number] 40mg Take 1 [facility] e 40 mg EC 4-04 tablet by ity of tablet 00:00: mouth [place] 00 daily. [facility] pantoprazol 2021-0 Yes [id number] 40mg Take 1 [facility] e 40 mg EC 4-04 tablet by ity of tablet 00:00: mouth [place] 00 daily. [facility] pantoprazol 2021-0 Yes [id number] 40mg Take 1 [facility] e 40 mg EC 4-04 tablet by ity of tablet 00:00: mouth [place] 00 daily. [facility] pantoprazol 2022-0 Yes [id number] 40mg Take 1 [facility] e 40 mg EC 4-04 tablet by ity of tablet 00:00: mouth [place] 00 daily. [facility] pantoprazol 2021-0 Yes [id number] 40mg Take 1 [facility] e 40 mg EC 4-04 tablet by ity of tablet 00:00: mouth [place] 00 daily. [facility] pantoprazol 0 Yes [id number] 40mg Take 1 [facility] e 40 mg EC 4-04 tablet by ity of tablet 00:00: mouth [place] 00 daily. [facility] pantoprazol Yes [id number] 40mg Take 1 [facility] e 40 mg EC 4-04 tablet by ity of tablet 00:00: mouth [place] 00 daily. [facility] pantoprazol Yes [id number] 40mg Take 1 [facility] e 40 mg EC 4-04 tablet by ity of tablet 00:00: mouth [place] 00 daily. [facility] pantoprazol Yes [id number] 40mg Take 1 [facility] e 40 mg EC 4-04 tablet by ity of tablet 00:00: mouth [place] 00 daily. [facility] pantoprazol Yes [id number] 40mg Take 1 [facility] e 40 mg EC 4-04 tablet by ity of tablet 00:00: mouth [place] 00 daily. [facility] pantoprazol Yes [id number] 40mg Take 1 [facility] e 40 mg EC 4-04 tablet by ity of tablet 00:00: mouth [place] 00 daily. [facility] pantoprazol 2021- Yes [id number] 40mg Take 1 [facility] e 40 mg EC 4-04 tablet by ity of tablet 00:00: mouth [place] 00 daily. [facility] pantoprazol 2021-0 Yes [id number] 40mg Take 1 [facility] e 40 mg EC 4-04 tablet by ity of tablet 00:00: mouth [place] 00 daily. [facility] pantoprazol 2021-0 Yes [id number] 40mg Take 1 [facility] e 40 mg EC 4-04 tablet by ity of tablet 00:00: mouth [place] 00 daily. [facility] pantoprazol 0 Yes [id number] 40mg Take 1 [facility] e 40 mg EC 4-04 tablet by ity of tablet 00:00: mouth [place] 00 daily. [facility] pantoprazol 2021-0 Yes [id number] 40mg Take 1 [facility] e 40 mg EC 4-04 tablet by ity of tablet 00:00: mouth [place] 00 daily. [facility] pantoprazol 2-0 Yes [id number] 40mg Take 1 [facility] e 40 mg EC 4-04 tablet by ity of tablet 00:00: mouth [place] 00 daily. [facility] pantoprazol 2021-0 Yes [id number] 40mg Take 1 [facility] e 40 mg EC 4-04 tablet by ity of tablet 00:00: mouth [place] 00 daily. [facility] pantoprazol 2-0 2- No [id number] 40mg Take 1 [facility] e 40 mg EC 4-04 -16 tablet by ity of tablet 00:00: 00:00 mouth [place] 00 :00 daily. [facility] pantoprazol 2021-0 2- No [id number] 40mg Take 1 [facility] e 40 mg EC 4-04 -16 tablet by ity of tablet 00:00: 00:00 mouth [place] 00 :00 daily. [facility] Blood-Gluco 2-0 Yes [id number] Use twice [facility] se Meter 3-08 a day for ity of (ONETOUCH 00:00: [place] VERIO FLEX E11.65 Medical START) Kit [facility] Blood-Gluco 2-0 Yes [id number] Use twice [facility] se Meter 3-08 a day for ity of (ONETOUCH 00:00: [place] VERIO FLEX E11.65 Medical START) Kit [facility] Blood-Gluco 2-0 Yes [id number] Use twice [facility] se Meter 3-08 a day for ity of (ONETOUCH 00:00: [place] VERIO FLEX E11.65 Medical START) Kit [facility] Blood-Gluco 2-0 Yes [id number] Use twice [facility] se Meter 3-08 a day for ity of (ONETOUCH 00:00: [place] VERIO FLEX E11.65 Medical START) Kit [facility] Blood-Gluco 2022-0 Yes [id number] Use twice [facility] se Meter 3-08 a day for ity of (ONETOUCH 00:00: [place] VERIO FLEX E11.65 Medical START) Kit [facility] Blood-Gluco 2022-0 Yes [id number] Use twice [facility] se Meter 3-08 a day for ity of (ONETOUCH 00:00: [place] VERIO FLEX Medical START) Kit [facility] Blood-Gluco 2022-0 Yes [id number] Use twice [facility] se M[place] 3-08 a day for ity of (ONETOUCH 00:00: [place] VERIO FLEX Medical START) Kit [facility] Blood-Gluco 2022-0 Yes [id number] Use twice [facility] se M[place] 3-08 a day for ity of (ONETOUCH 00:00: [place] VERIO FLEX Medical START) Kit [facility] Blood-Gluco 2022-0 Yes [id number] Use twice [facility] se Meter 3-08 a day for ity of (ONETOUCH 00:00: ICD [place] VERIO FLEX Medical START) Kit [facility] Blood-Gluco 2022-0 Yes [id number] Use twice [facility] se M[facility] 3-08 a day for ity of (ONETOUCH 00:00: [place] VERIO FLEX Medical START) Kit [facility] Blood-Gluco 2022-0 Yes [id number] Use twice [facility] se M[facility] 3-08 a day for ity of (ONETOUCH 00:00: [place] VERIO FLEX Medical START) Kit [facility] Blood-Gluco 2022-0 Yes [id number] Use twice [facility] se Meter 3-08 a day for ity of (ONETOUCH 00:00: ICD [place] VERIO FLEX Medical START) Kit [facility] Blood-Gluco 2022-0 Yes [id number] Use twice [facility] se Meter 3-08 a day for ity of (ONETOUCH 00:00: ICD [place] VERIO FLEX Medical START) Kit [facility] Blood-Gluco 2022-0 Yes [id number] Use twice [facility] se Meter 3-08 a day for ity of (ONETOUCH 00:00: ICD CODE [place] VERIO FLEX Medical START) Kit [facility] Blood-Gluco 2022-0 Yes [id number] Use twice [facility] se Meter 3-08 a day for ity of (ONETOUCH 00:00: ICD [place] VERIO FLEX Medical START) Kit [facility] Blood-Gluco 2022-0 Yes [id number] Use twice [facility] se Meter 3-08 a day for ity of (ONETOUCH 00:00: ICD CODE [place] VERIO FLEX E11.65 Medical START) Kit [facility] Blood-Gluco 2022-0 Yes [id number] Use twice [facility] se Meter 3-08 a day for ity of (ONETOUCH 00:00: ICD CODE [place] VERIO FLEX E11.65 Medical START) Kit [facility] Blood-Gluco 2022-0 Yes [id number] Use twice [facility] se Meter 3-08 a day for ity of (ONETOUCH 00:00: ICD CODE [place] VERIO FLEX E11.65 Medical START) Kit [facility] Blood-Gluco 2022-0 Yes [id number] Use twice [facility] se Meter 3-08 a day for ity of (ONETOUCH 00:00: ICD CODE [place] VERIO FLEX E11.65 Medical START) Kit [facility] Blood-Gluco 2022-0 Yes [id number] Use twice [facility] se Meter 3-08 a day for ity of (ONETOUCH 00:00: ICD CODE [place] VERIO FLEX E11.65 Medical START) Kit [facility] Blood-Gluco 2022-0 Yes [id number] Use twice [facility] se Meter 3-08 a day for ity of (ONETOUCH 00:00: ICD CODE [place] VERIO FLEX E11.65 Medical START) Kit Branch Blood-Gluco 2022-0 Yes [id number] Use twice [facility] se Meter 3-08 a day for ity of (ONETOUCH 00:00: ICD CODE [place] VERIO FLEX E11.65 Medical START) Kit [facility] Blood-Gluco 2022-0 Yes [id number] Use twice [facility] se Meter 3-08 a day for ity of (ONETOUCH 00:00: ICD CODE [place] VERIO FLEX E11.65 Medical START) Kit Branch Blood-Gluco 2022-0 Yes [id number] Use twice [facility] se Meter 3-08 a day for ity of (ONETOUCH 00:00: ICD CODE [place] VERIO FLEX E11.65 Medical START) Kit Branch Blood-Gluco 2022-0 Yes [id number] Use twice [facility] se Meter 3-08 a day for ity of (ONETOUCH 00:00: ICD CODE [place] VERIO FLEX Medical START) Kit [facility] Blood-Gluco 2022-0 Yes [id number] Use twice [facility] se Meter 3-08 a day for ity of (ONETOUCH 00:00: ICD CODE [place] VERIO FLEX Medical START) Kit [facility] Blood-Gluco 2022-0 Yes [id number] Use twice [facility] se Meter 3-08 a day for ity of (ONETOUCH 00:00: ICD CODE [place] VERIO FLEX Medical START) Kit [facility] Blood-Gluco 2022-0 Yes [id number] Use twice [facility] se Meter 3-08 a day for ity of (ONETOUCH 00:00: ICD CODE [place] VERIO FLEX Medical START) Kit [facility] Blood-Gluco 2022-0 Yes [id number] Use twice [facility] se Meter 3-08 a day for ity of (ONETOUCH 00:00: ICD CODE [place] VERIO FLEX Medical START) Kit [facility] Blood-Gluco 2022-0 Yes [id number] Use twice [facility] se Meter 3-08 a day for ity of (ONETOUCH 00:00: ICD CODE [place] VERIO FLEX Medical START) Kit [facility] Blood-Gluco 2022-0 Yes [id number] Use twice [facility] se Meter 3-08 a day for ity of (ONETOUCH 00:00: ICD CODE [place] VERIO FLEX Medical START) Kit [facility] Blood-Gluco 2022-0 Yes [id number] Use twice [facility] se Meter 3-08 a day for ity of (ONETOUCH 00:00: ICD CODE [place] VERIO FLEX Medical START) Kit [facility] Blood-Gluco 2022-0 Yes [id number] Use twice [facility] se Meter 3-08 a day for ity of (ONETOUCH 00:00: ICD CODE [place] VERIO FLEX Medical START) Kit [facility] Blood-Gluco 2022-0 Yes [id number] Use twice [facility] se Meter 3-08 a day for ity of (ONETOUCH 00:00: ICD CODE [place] VERIO FLEX Medical START) Kit [facility] Blood-Gluco 2022-0 Yes [id number] Use twice [facility] se Meter 3-08 a day for ity of (ONETOUCH 00:00: ICD [place] VERIO FLEX 00 E11.65 Medical START) [facility] Blood-Gluco 2021-0 Yes [id number] Use twice [facility] se Meter 3-08 a day for ity of (ONETOUCH 00:00: ICD CODE [place] VERIO FLEX 00 E11.65 Medical START) [facility] Blood-Gluco 2021-0 2- No [id number] Use twice [facility] se Meter 3-08 - a day for ity o f (ONETOUCH 00:00: 00:00 ICD CODE [place] VERIO FLEX 00 :00 E11.65 Medical START) [facility] Blood-Gluco 2021-0 2021- No [id number] Use twice [facility] se Meter 3-08 - a day for ity o f (ONETOUCH 00:00: 00:00 ICD CODE [place] VERIO FLEX 00 :00 E11.65 Medical START) [facility] Blood-Gluco 2021-0 2021- No [id number] Use twice [facility] se Meter 3-08 - a day for ity o f (ONETOUCH 00:00: 00:00 ICD CODE [place] VERIO FLEX 00 :00 E11.65 Medical START) [facility] mirabegron 0 Yes [id number] 50mg Take 1 [facility] (MYRBETRIQ) 1-18 tablet by ity of 50 mg 00:00: mouth [place] tablet 00 daily. [facility] mirabegron 2021-0 Yes [id number] 50mg Take 1 [facility] (MYRBETRIQ) 1-18 tablet by ity of 50 mg 00:00: mouth [place] tablet 00 daily. [facility] mirabegron 2021-0 Yes [id number] 50mg Take 1 [facility] (MYRBETRIQ) 1-18 tablet by ity of 50 mg 00:00: mouth [place] tablet 00 daily. [facility] mirabegron 2021-0 Yes [id number] 50mg Take 1 [facility] (MYRBETRIQ) 1-18 tablet by ity of 50 mg 00:00: mouth [place] tablet 00 daily. [facility] mirabegron 2021-0 Yes [id number] 50mg Take 1 [facility] (MYRBETRIQ) 1-18 tablet by ity of 50 mg 00:00: mouth [place] tablet 00 daily. [facility] mirabegron 0 Yes [id number] 50mg Take 1 [facility] (MYRBETRIQ) 1-18 tablet by ity of 50 mg 00:00: mouth [place] tablet 00 daily. [facility] mirabegron 0 Yes [id number] 50mg Take 1 [facility] (MYRBETRIQ) 1-18 tablet by ity of 50 mg 00:00: mouth [place] tablet 00 daily. [facility] mirabegron 0 Yes [id number] 50mg Take 1 [facility] (MYRBETRIQ) 1-18 tablet by ity of 50 mg 00:00: mouth [place] tablet 00 daily. [facility] mirabegron 0 Yes [id number] 50mg Take 1 [facility] (MYRBETRIQ) 1-18 tablet by ity of 50 mg 00:00: mouth [place] tablet 00 daily. [facility] mirabegron 0 Yes [id number] 50mg Take 1 [facility] (MYRBETRIQ) 1-18 tablet by ity of 50 mg 00:00: mouth [place] tablet 00 daily. [facility] mirabegron 0 Yes [id number] 50mg Take 1 [facility] (MYRBETRIQ) 1-18 tablet by ity of 50 mg 00:00: mouth [place] tablet 00 daily. [facility] mirabegron 0 Yes [id number] 50mg Take 1 [facility] (MYRBETRIQ) 1-18 tablet by ity of 50 mg 00:00: mouth [place] tablet 00 daily. [facility] mirabegron 0 Yes [id number] 50mg Take 1 [facility] (MYRBETRIQ) 1-18 tablet by ity of 50 mg 00:00: mouth [place] tablet 00 daily. [facility] mirabegron 0 Yes [id number] 50mg Take 1 [facility] (MYRBETRIQ) 1-18 tablet by ity of 50 mg 00:00: mouth [place] tablet 00 daily. [facility] mirabegron 0 Yes [id number] 50mg Take 1 [facility] (MYRBETRIQ) 1-18 tablet by ity of 50 mg 00:00: mouth [place] tablet 00 daily. [facility] mirabegron 0 Yes [id number] 50mg Take 1 [facility] (MYRBETRIQ) 1-18 tablet by ity of 50 mg 00:00: mouth [place] tablet 00 daily. [facility] mirabegron 2021-0 Yes [id number] 50mg Take 1 [facility] (MYRBETRIQ) 1-18 tablet by ity of 50 mg 00:00: mouth [place] tablet 00 daily. [facility] mirabegron 2021-0 Yes [id number] 50mg Take 1 [facility] (MYRBETRIQ) 1-18 tablet by ity of 50 mg 00:00: mouth [place] tablet 00 daily. [facility] mirabegron 0 Yes [id number] 50mg Take 1 [facility] (MYRBETRIQ) 1-18 tablet by ity of 50 mg 00:00: mouth [place] tablet 00 daily. [facility] mirabegron 0 Yes [id number] 50mg Take 1 [facility] (MYRBETRIQ) 1-18 tablet by ity of 50 mg 00:00: mouth [place] tablet 00 daily. [facility] mirabegron 0 Yes [id number] 50mg Take 1 [facility] (MYRBETRIQ) 1-18 tablet by ity of 50 mg 00:00: mouth [place] tablet 00 daily. [facility] mirabegron 0 Yes [id number] 50mg Take 1 [facility] (MYRBETRIQ) 1-18 tablet by ity of 50 mg 00:00: mouth [place] tablet 00 daily. [facility] mirabegron 0 Yes [id number] 50mg Take 1 [facility] (MYRBETRIQ) 1-18 tablet by ity of 50 mg 00:00: mouth [place] tablet 00 daily. [facility] mirabegron 0 Yes [id number] 50mg Take 1 [facility] (MYRBETRIQ) 1-18 tablet by ity of 50 mg 00:00: mouth [place] tablet 00 daily. [facility] mirabegron 0 Yes [id number] 50mg Take 1 [facility] (MYRBETRIQ) 1-18 tablet by ity of 50 mg 00:00: mouth [place] tablet 00 daily. [facility] mirabegron 2021-0 Yes [id number] 50mg Take 1 [facility] (MYRBETRIQ) 1-18 tablet by ity of 50 mg 00:00: mouth [place] tablet 00 daily. [facility] mirabegron 2021-0 Yes [id number] 50mg Take 1 [facility] (MYRBETRIQ) 1-18 tablet by ity of 50 mg 00:00: mouth [place] tablet 00 daily. [facility] mirabegron 2021-0 Yes [id number] 50mg Take 1 [facility] (MYRBETRIQ) 1-18 tablet by ity of 50 mg 00:00: mouth [place] tablet 00 daily. [facility] mirabegron 2021-0 Yes [id number] 50mg Take 1 [facility] (MYRBETRIQ) 1-18 tablet by ity of 50 mg 00:00: mouth [place] tablet 00 daily. [facility] mirabegron 0 Yes [id number] 50mg Take 1 [facility] (MYRBETRIQ) 1-18 tablet by ity of 50 mg 00:00: mouth [place] tablet 00 daily. [facility] mirabegron 0 Yes [id number] 50mg Take 1 [facility] (MYRBETRIQ) 1-18 tablet by ity of 50 mg 00:00: mouth [place] tablet 00 daily. [facility] mirabegron 0 Yes [id number] 50mg Take 1 [facility] (MYRBETRIQ) 1-18 tablet by ity of 50 mg 00:00: mouth [place] tablet 00 daily. [facility] mirabegron 0 Yes [id number] 50mg Take 1 [facility] (MYRBETRIQ) 1-18 tablet by ity of 50 mg 00:00: mouth [place] tablet 00 daily. [facility] mirabegron 0 Yes [id number] 50mg Take 1 [facility] (MYRBETRIQ) 1-18 tablet by ity of 50 mg 00:00: mouth [place] tablet 00 daily. [facility] mirabegron 2021-0 Yes [id number] 50mg Take 1 [facility] (MYRBETRIQ) 1-18 tablet by ity of 50 mg 00:00: mouth [place] tablet 00 daily. [facility] mirabegron 2021-0 Yes [id number] 50mg Take 1 [facility] (MYRBETRIQ) 1-18 tablet by ity of 50 mg 00:00: mouth [place] tablet 00 daily. [facility] mirabegron 2021-0 Yes [id number] 50mg Take 1 [facility] (MYRBETRIQ) 1-18 tablet by ity of 50 mg 00:00: mouth [place] tablet 00 daily. [facility] mirabegron 2021-0 Yes [id number] 50mg Take 1 [facility] (MYRBETRIQ) 1-18 tablet by ity of 50 mg 00:00: mouth [place] tablet 00 daily. [facility] mirabegron 0 Yes [id number] 50mg Take 1 [facility] (MYRBETRIQ) 1-18 tablet by ity of 50 mg 00:00: mouth [place] tablet 00 daily. [facility] mirabegron 0 Yes [id number] 50mg Take 1 [facility] (MYRBETRIQ) 1-18 tablet by ity of 50 mg 00:00: mouth [place] tablet 00 daily. [facility] mirabegron 0 Yes [id number] 50mg Take 1 [facility] (MYRBETRIQ) 1-18 tablet by ity of 50 mg 00:00: mouth [place] tablet 00 daily. [facility] mirabegron 0 Yes [id number] 50mg Take 1 [facility] (MYRBETRIQ) 1-18 tablet by ity of 50 mg 00:00: mouth [place] tablet 00 daily. [facility] mirabegron 0 Yes [id number] 50mg Take 1 [facility] (MYRBETRIQ) 1-18 tablet by ity of 50 mg 00:00: mouth [place] tablet 00 daily. [facility] mirabegron 0 Yes [id number] 50mg Take 1 [facility] (MYRBETRIQ) 1-18 tablet by ity of 50 mg 00:00: mouth [place] tablet 00 daily. [facility] mirabegron 0 Yes [id number] 50mg Take 1 [facility] (MYRBETRIQ) 1-18 tablet by ity of 50 mg 00:00: mouth [place] tablet 00 daily. [facility] mirabegron 0 Yes [id number] 50mg Take 1 [facility] (MYRBETRIQ) 1-18 tablet by ity of 50 mg 00:00: mouth [place] tablet 00 daily. [facility] mirabegron 0 Yes [id number] 50mg Take 1 [facility] (MYRBETRIQ) 1-18 tablet by ity of 50 mg 00:00: mouth [place] tablet 00 daily. [facility] mirabegron 0 Yes [id number] 50mg Take 1 [facility] (MYRBETRIQ) 1-18 tablet by ity of 50 mg 00:00: mouth [place] tablet 00 daily. [facility] mirabegron 0 2021- No [id number] 50mg Take 1 [facility] (MYRBETRIQ) 1-18 10-13 tablet by it y of 50 mg 00:00: 00:00 mouth [place] tablet 00 :00 daily. [facility] semaglutide 2020-09 Yes [id number] Inject [facility] (OZEMPIC) 2-01 0.25 mg ity of 0.25 mg or 00:00: under the [place] 0.5 mg(2 00 skin Medical mg/1.5 mL) weekly. [facility] semaglutide 2020-09 Yes [id number] Inject [facility] (OZEMPIC) 2-01 0.25 mg ity of 0.25 mg or 00:00: under the [place] 0.5 mg(2 00 skin Medical mg/1.5 mL) weekly. [facility] semaglutide 2020-09 Yes [id number] Inject [facility] (OZEMPIC) 2-01 0.25 mg ity of 0.25 mg or 00:00: under the [place] 0.5 mg(2 00 skin Medical mg/1.5 mL) weekly. [facility] semaglutide 2020-09 Yes [id number] Inject [facility] (OZEMPIC) 2-01 0.25 mg ity of 0.25 mg or 00:00: under the [place] 0.5 mg(2 00 skin Medical mg/1.5 mL) weekly. [facility] semaglutide 2020-09 Yes [id number] Inject [facility] (OZEMPIC) 2-01 0.25 mg ity of 0.25 mg or 00:00: under the [place] 0.5 mg(2 00 skin Medical mg/1.5 mL) weekly. [facility] semaglutide 2020-09 Yes [id number] Inject [facility] (OZEMPIC) 2-01 0.25 mg ity of 0.25 mg or 00:00: under the [place] 0.5 mg(2 00 skin Medical mg/1.5 mL) weekly. [facility] semaglutide 2020-09 Yes [id number] Inject [facility] (OZEMPIC) 2-01 0.25 mg ity of 0.25 mg or 00:00: under the [place] 0.5 mg(2 00 skin Medical mg/1.5 mL) weekly. [facility] semaglutide 2020-09 Yes [id number] Inject [facility] (OZEMPIC) 2-01 0.25 mg ity of 0.25 mg or 00:00: under the [place] 0.5 mg(2 00 skin Medical mg/1.5 mL) weekly. [facility] semaglutide 2020-09 Yes [id number] Inject [facility] (OZEMPIC) 2-01 0.25 mg ity of 0.25 mg or 00:00: under the [place] 0.5 mg(2 00 skin Medical mg/1.5 mL) weekly. Branch [facility] semaglutide 2020-09 Yes [id number] Inject [facility] (OZEMPIC) 2-01 0.25 mg ity of 0.25 mg or 00:00: under the [place] 0.5 mg(2 00 skin Medical mg/1.5 mL) weekly. Branch [facility] semaglutide 2020-09 Yes [id number] Inject [facility] (OZEMPIC) 2-01 0.25 mg ity of 0.25 mg or 00:00: under the [place] 0.5 mg(2 00 skin Medical mg/1.5 mL) weekly. Branch [facility] semaglutide 2020-09 Yes [id number] Inject [facility] (OZEMPIC) 2-01 0.25 mg ity of 0.25 mg or 00:00: under the [place] 0.5 mg(2 00 skin Medical mg/1.5 mL) weekly. Branch [facility] semaglutide 2020-09 Yes [id number] Inject [facility] (OZEMPIC) 2-01 0.25 mg ity of 0.25 mg or 00:00: under the [place] 0.5 mg(2 00 skin Medical mg/1.5 mL) weekly. [facility] semaglutide 2020-09 Yes [id number] Inject [facility] (OZEMPIC) 2-01 0.25 mg ity of 0.25 mg or 00:00: under the [place] 0.5 mg(2 00 skin Medical mg/1.5 mL) weekly. [facility] semaglutide 2020-09 Yes [id number] Inject [facility] (OZEMPIC) 2-01 0.25 mg ity of 0.25 mg or 00:00: under the [place] 0.5 mg(2 00 skin Medical mg/1.5 mL) weekly. [facility] semaglutide 2020-09 Yes [id number] Inject [facility] (OZEMPIC) 2-01 0.25 mg ity of 0.25 mg or 00:00: under the [place] 0.5 mg(2 00 skin Medical mg/1.5 mL) weekly. [facility] semaglutide 2020-09 Yes [id number] Inject [facility] (OZEMPIC) 2-01 0.25 mg ity of 0.25 mg or 00:00: under the [place] 0.5 mg(2 00 skin Medical mg/1.5 mL) weekly. [facility] semaglutide 2020-09 Yes [id number] Inject [facility] (OZEMPIC) 2-01 0.25 mg ity of 0.25 mg or 00:00: under the [place] 0.5 mg(2 00 skin Medical mg/1.5 mL) weekly. Branch [facility] semaglutide 2020-09 Yes [id number] Inject [facility] (OZEMPIC) 2-01 0.25 mg ity of 0.25 mg or 00:00: under the [place] 0.5 mg(2 00 skin Medical mg/1.5 mL) weekly. Branch [facility] semaglutide 2020-09 Yes [id number] Inject [facility] (OZEMPIC) 2-01 0.25 mg ity of 0.25 mg or 00:00: under the [place] 0.5 mg(2 00 skin Medical mg/1.5 mL) weekly. Branch [facility] semaglutide 2020-09 Yes [id number] Inject [facility] (OZEMPIC) 2-01 0.25 mg ity of 0.25 mg or 00:00: under the [place] 0.5 mg(2 00 skin Medical mg/1.5 mL) weekly. Branch [facility] semaglutide 2020-09 Yes [id number] Inject [facility] (OZEMPIC) 2-01 0.25 mg ity of 0.25 mg or 00:00: under the [place] 0.5 mg(2 00 skin Medical mg/1.5 mL) weekly. Branch [facility] semaglutide 2020-09 Yes [id number] Inject [facility] (OZEMPIC) 2-01 0.25 mg ity of 0.25 mg or 00:00: under the [place] 0.5 mg(2 00 skin Medical mg/1.5 mL) weekly. Branch [facility] semaglutide 2020-09 Yes [id number] Inject [facility] (OZEMPIC) 2-01 0.25 mg ity of 0.25 mg or 00:00: under the [place] 0.5 mg(2 00 skin Medical mg/1.5 mL) weekly. Branch [facility] semaglutide 2020-09 Yes [id number] Inject [facility] (OZEMPIC) 2-01 0.25 mg ity of 0.25 mg or 00:00: under the [place] 0.5 mg(2 00 skin Medical mg/1.5 mL) weekly. Branch [facility] semaglutide 2020-09 Yes [id number] Inject [facility] (OZEMPIC) 2-01 0.25 mg ity of 0.25 mg or 00:00: under the [place] 0.5 mg(2 00 skin Medical mg/1.5 mL) weekly. Branch [facility] semaglutide 2020-09 Yes [id number] Inject [facility] (OZEMPIC) 2-01 0.25 mg ity of 0.25 mg or 00:00: under the [place] 0.5 mg(2 00 skin Medical mg/1.5 mL) weekly. Branch [facility] semaglutide 2020-09 Yes [id number] Inject [facility] (OZEMPIC) 2-01 0.25 mg ity of 0.25 mg or 00:00: under the [place] 0.5 mg(2 00 skin Medical mg/1.5 mL) weekly. Branch [facility] semaglutide 2020-09 Yes [id number] Inject [facility] (OZEMPIC) 2-01 0.25 mg ity of 0.25 mg or 00:00: under the [place] 0.5 mg(2 00 skin Medical mg/1.5 mL) weekly. Branch [facility] semaglutide 2020-09 Yes [id number] Inject [facility] (OZEMPIC) 2-01 0.25 mg ity of 0.25 mg or 00:00: under the [place] 0.5 mg(2 00 skin Medical mg/1.5 mL) weekly. Branch [facility] semaglutide 2020-09 Yes [id number] Inject [facility] (OZEMPIC) 2-01 0.25 mg ity of 0.25 mg or 00:00: under the [place] 0.5 mg(2 00 skin Medical mg/1.5 mL) weekly. Branch [facility] semaglutide 2020-09 Yes [id number] Inject [facility] (OZEMPIC) 2-01 0.25 mg ity of 0.25 mg or 00:00: under the [place] 0.5 mg(2 00 skin Medical mg/1.5 mL) weekly. Branch [facility] semaglutide 2020-09 Yes [id number] Inject [facility] (OZEMPIC) 2-01 0.25 mg ity of 0.25 mg or 00:00: under the [place] 0.5 mg(2 00 skin Medical mg/1.5 mL) weekly. Branch [facility] semaglutide 2020-09 Yes [id number] Inject [facility] (OZEMPIC) 2-01 0.25 mg ity of 0.25 mg or 00:00: under the [place] 0.5 mg(2 00 skin Medical mg/1.5 mL) weekly. Branch [facility] semaglutide 2020-09 Yes [id number] Inject [facility] (OZEMPIC) 2-01 0.25 mg ity of 0.25 mg or 00:00: under the [place] 0.5 mg(2 00 skin Medical mg/1.5 mL) weekly. [facility] semaglutide 2020-09 Yes [id number] Inject [facility] (OZEMPIC) 2-01 0.25 mg ity of 0.25 mg or 00:00: under the [place] 0.5 mg(2 00 skin Medical mg/1.5 mL) weekly. Branch [facility] semaglutide 2020-09 Yes [id number] Inject [facility] (OZEMPIC) 2-01 0.25 mg ity of 0.25 mg or 00:00: under the [place] 0.5 mg(2 00 skin Medical mg/1.5 mL) weekly. Branch [facility] semaglutide 2020-09 Yes [id number] Inject [facility] (OZEMPIC) 2-01 0.25 mg ity of 0.25 mg or 00:00: under the [place] 0.5 mg(2 00 skin Medical mg/1.5 mL) weekly. Branch [facility] semaglutide 2020-09 Yes [id number] Inject [facility] (OZEMPIC) 2-01 0.25 mg ity of 0.25 mg or 00:00: under the [place] 0.5 mg(2 00 skin Medical mg/1.5 mL) weekly. Branch [facility] semaglutide 2020-09 Yes [id number] Inject [facility] (OZEMPIC) 2-01 0.25 mg ity of 0.25 mg or 00:00: under the [place] 0.5 mg(2 00 skin Medical mg/1.5 mL) weekly. Branch [facility] semaglutide 2020-09 Yes [id number] Inject [facility] (OZEMPIC) 2-01 0.25 mg ity of 0.25 mg or 00:00: under the [place] 0.5 mg(2 00 skin Medical mg/1.5 mL) weekly. Branch [facility] semaglutide 2020-09 Yes [id number] Inject [facility] (OZEMPIC) 2-01 0.25 mg ity of 0.25 mg or 00:00: under the [place] 0.5 mg(2 00 skin Medical mg/1.5 mL) weekly. Branch [facility] semaglutide 2020-09 Yes [id number] Inject [facility] (OZEMPIC) 2-01 0.25 mg ity of 0.25 mg or 00:00: under the [place] 0.5 mg(2 00 skin Medical mg/1.5 mL) weekly. Branch [facility] semaglutide 2020-09 Yes [id number] Inject [facility] (OZEMPIC) 2-01 0.25 mg ity of 0.25 mg or 00:00: under the [place] 0.5 mg(2 00 skin Medical mg/1.5 mL) weekly. Branch [facility] semaglutide 2020-09 Yes [id number] Inject [facility] (OZEMPIC) 2-01 0.25 mg ity of 0.25 mg or 00:00: under the [place] 0.5 mg(2 00 skin Medical mg/1.5 mL) weekly. Branch [facility] semaglutide 2020-09 Yes [id number] Inject [facility] (OZEMPIC) 2-01 0.25 mg ity of 0.25 mg or 00:00: under the [place] 0.5 mg(2 00 skin Medical mg/1.5 mL) weekly. Branch [facility] semaglutide 2020-09 Yes [id number] Inject [facility] (OZEMPIC) 2-01 0.25 mg ity of 0.25 mg or 00:00: under the [place] 0.5 mg(2 00 skin Medical mg/1.5 mL) weekly. [facility] semaglutide 2020-09 Yes [id number] Inject [facility] (OZEMPIC) 10-27 0.25 mg ity of 0.25 mg or 00:00: under the [place] 0.5 mg(2 00 skin Medical mg/1.5 mL) weekly. Branch [facility] semaglutide 2020-09- No [id number] Inject [facility] (OZEMPIC) 10-27 10- 0.25 mg ity of 0.25 mg or 00:00: 00:00 under the [place] 0.5 mg(2 00 :00 skin Medical mg/1.5 mL) weekly. Branch [facility] metformin 2020-09- No [id number] 500mg Take 1 [facility] ER 500 mg 10-27 tablet by ity of 24 hr 00:00: 00:00 mouth [place] tablet 00 :00 daily with Medical breakfast. Branch STOP REGULAR METFORMIN. metformin 2020-09- No [id number] 500mg Take 1 [facility] ER 500 mg 10-27 tablet by ity of 24 hr 00:00: 00:00 mouth [place] tablet 00 :00 daily with Medical breakfast. Branch STOP REGULAR METFORMIN. cyanocobala 2020-09 Yes [id number] 1000ug 1 mL by [facility] min 1,000 1-09 Intramuscu ity of mcg/mL 00:00: lar route [place] injection 00 every 2 Medical (two) Branch weeks. levothyroxi 2020-09 Yes [id number] 50ug Take 1 [facility] ne 50 mcg 1-09 tablet by ity o f tablet 00:00: mouth [place] 00 every Medical morning. Branch fluticasone 2020-09 Yes [id number] 2{puff} Inhale 2 [facility] propionate 1-09 Puffs ity of (FLOVENT 00:00: every 12 [place] HFA) 110 00 (twelve) Medical mcg/actuati hours. Branch on inhaler Rinse mouth after each use. levalbutero 2020-09 Yes [id number] .63mg Inhale [facility] l 0.63 mg/3 1-09 0.63 mg 3 ity of mL 00:00: (three) [place] nebulizer 00 times Medical solution daily as Branch needed for Wheezing or Shortness of Breath. losartan 50 2020-09 Yes [id number] 50mg Take 1 [facility] mg tablet 1-09 tablet by ity o f 00:00: mouth 2 [place] 00 (two) Medical times Branch daily. clotrimazol 2020-09 Yes [id number] Apply to [facility] e-betametha 09 area(s) 2 ity of sone cream 00:00: (two) [place] 00 times Medical daily. Branch cyclobenzap 2020-09 Yes [id number] TAKE 1 [facility] rine 5 mg -09 TABLET BY ity o f tablet 00:00: MOUTH [place] 00 EVERY 8 Medical HOURS Branch NEEDED econazole 2020-09 Yes [id number] Apply to [facility] nitrate 1 % 10-04 area(s) 2 ity of cream 00:00: (two) [place] 00 times Medical daily. Branch albuterol 2020-09 Yes [id number] 2{puff} Inhale 2 [facility] (PROAIR 1-09 Puffs ity of HFA) 90 00:00: every 6 [place] mcg/actuati 00 (six) Medical on inhaler hours as Branc h needed for Wheezing or Shortness of Breath. triamcinolo 2020-09 Yes [id number] Apply to [facility] ne 0.025 % 10-04 area(s) 3 ity of ointment 00:00: (three) [place] 00 times Medical daily. For Branch itching diltiazem 2020-09 Yes [id number] 120mg Take 1 U nivers (CARTIA XT) 09 capsule by it y of 120 mg 24 00:00: mouth 2 [place] hr capsule 00 (two) Medical times Branch daily. cyanocobala 2020-09 Yes [id number] 1000ug 1 mL by [facility] min 1,000 -09 Intramuscu ity of mcg/mL 00:00: lar route [place] injection 00 every 2 Medical (two) Branch weeks. levothyroxi 2020-09 Yes [id number] 50ug Take 1 [facility] ne 50 mcg 1-09 tablet by ity o f tablet 00:00: mouth [place] 00 every Medical morning. Branch fluticasone 2020-09 Yes [id number] 2{puff} Inhale 2 [facility] propionate 1-09 Puffs ity of (FLOVENT 00:00: every 12 [place] HFA) 110 00 (twelve) Medical mcg/actuati hours. Branch on inhaler Rinse mouth after each use. levalbutero 2020-09 Yes [id number] .63mg Inhale [facility] l 0.63 mg/3 1-09 0.63 mg 3 ity of mL 00:00: (three) [place] nebulizer 00 times Medical solution daily as Branch needed for Wheezing or Shortness of Breath. losartan 50 2020-09 Yes [id number] 50mg Take 1 [facility] mg tablet 1-09 tablet by ity o f 00:00: mouth 2 [place] 00 (two) Medical times Branch daily. clotrimazol 2020-09 Yes [id number] Apply to [facility] e-betametha -09 area(s) 2 ity of sone cream 00:00: (two) [place] 00 times Medical daily. Branch cyclobenzap 2020-09 Yes [id number] TAKE 1 [facility] rine 5 mg -09 TABLET BY ity o f tablet 00:00: MOUTH [place] 00 EVERY 8 Medical HOURS Branch NEEDED econazole 2020-09 Yes [id number] Apply to [facility] nitrate 1 % 09 area(s) 2 ity of cream 00:00: (two) [place] 00 times Medical daily. Branch albuterol 2020-09 Yes [id number] 2{puff} Inhale 2 [facility] (PROAIR 1-09 Puffs ity of HFA) 90 00:00: every 6 [place] mcg/actuati 00 (six) Medical on inhaler hours as Branc h needed for Wheezing or Shortness of Breath. triamcinolo 2020-09 Yes [id number] Apply to [facility] ne 0.025 % 09 area(s) 3 ity of ointment 00:00: (three) [place] 00 times Medical daily. For Branch itching diltiazem 2020-09 Yes [id number] 120mg Take 1 U nivers (CARTIA XT) -09 capsule by it y of 120 mg 24 00:00: mouth 2 [place] hr capsule 00 (two) Medical times Branch daily. cyanocobala 2020-09 Yes [id number] 1000ug 1 mL by [facility] min 1,000 -09 Intramuscu ity of mcg/mL 00:00: lar route [place] injection 00 every 2 Medical (two) Branch weeks. levothyroxi 2020-09 Yes [id number] 50ug Take 1 [facility] ne 50 mcg 1-09 tablet by ity o f tablet 00:00: mouth [place] 00 every Medical morning. Branch fluticasone 2020-09 Yes [id number] 2{puff} Inhale 2 [facility] propionate 1-09 Puffs ity of (FLOVENT 00:00: every 12 [place] HFA) 110 00 (twelve) Medical mcg/actuati hours. Branch on inhaler Rinse mouth after each use. levalbutero 2020-09 Yes [id number] .63mg Inhale [facility] l 0.63 mg/3 1-09 0.63 mg 3 ity of mL 00:00: (three) [place] nebulizer 00 times Medical solution daily as Branch needed for Wheezing or Shortness of Breath. losartan 50 2020-09 Yes [id number] 50mg Take 1 [facility] mg tablet -09 tablet by ity o f 00:00: mouth 2 [place] 00 (two) Medical times Branch daily. clotrimazol 2020-09 Yes [id number] Apply to [facility] e-betametha -09 area(s) 2 ity of sone cream 00:00: (two) [place] 00 times Medical daily. Branch cyclobenzap 2020-09 Yes [id number] TAKE 1 [facility] rine 5 mg -09 TABLET BY ity o f tablet 00:00: MOUTH [place] 00 EVERY 8 Medical HOURS Branch NEEDED econazole 2020-09 Yes [id number] Apply to [facility] nitrate 1 % 09 area(s) 2 ity of cream 00:00: (two) [place] 00 times Medical daily. Branch albuterol 2020-09 Yes [id number] 2{puff} Inhale 2 [facility] (PROAIR 1-09 Puffs ity of HFA) 90 00:00: every 6 [place] mcg/actuati 00 (six) Medical on inhaler hours as Branc h needed for Wheezing or Shortness of Breath. triamcinolo 2020-09 Yes [id number] Apply to [facility] ne 0.025 % -09 area(s) 3 ity of ointment 00:00: (three) [place] 00 times Medical daily. For Branch itching diltiazem 2020-09 Yes [id number] 120mg Take 1 U nivers (CARTIA XT) 1-09 capsule by it y of 120 mg 24 00:00: mouth 2 [place] hr capsule 00 (two) Medical times Branch daily. cyanocobala 2020-09 Yes [id number] 1000ug 1 mL by [facility] min 1,000 1-09 Intramuscu ity of mcg/mL 00:00: lar route [place] injection 00 every 2 Medical (two) Branch weeks. levothyroxi 2020-09 Yes [id number] 50ug Take 1 [facility] ne 50 mcg 1-09 tablet by ity o f tablet 00:00: mouth [place] 00 every Medical morning. Branch fluticasone 2020-09 Yes [id number] 2{puff} Inhale 2 [facility] propionate 1-09 Puffs ity of (FLOVENT 00:00: every 12 [place] HFA) 110 00 (twelve) Medical mcg/actuati hours. Branch on inhaler Rinse mouth after each use. levalbutero 2020-09 Yes [id number] .63mg Inhale [facility] l 0.63 mg/3 1-09 0.63 mg 3 ity of mL 00:00: (three) [place] nebulizer 00 times Medical solution daily as Branch needed for Wheezing or Shortness of Breath. losartan 50 2020-09 Yes [id number] 50mg Take 1 [facility] mg tablet 1-09 tablet by ity o f 00:00: mouth 2 [place] 00 (two) Medical times Branch daily. clotrimazol 2020-09 Yes [id number] Apply to [facility] e-betametha -09 area(s) 2 ity of sone cream 00:00: (two) [place] 00 times Medical daily. Branch cyclobenzap 2020-09 Yes [id number] TAKE 1 [facility] rine 5 mg 1-09 TABLET BY ity o f tablet 00:00: MOUTH [place] 00 EVERY 8 Medical HOURS Branch NEEDED econazole 2020-09 Yes [id number] Apply to [facility] nitrate 1 % 1-09 area(s) 2 ity of cream 00:00: (two) [place] 00 times Medical daily. Branch albuterol 2020-09 Yes [id number] 2{puff} Inhale 2 [facility] (PROAIR 1-09 Puffs ity of HFA) 90 00:00: every 6 [place] mcg/actuati 00 (six) Medical on inhaler hours as Branc h needed for Wheezing or Shortness of Breath. triamcinolo 2020-09 Yes [id number] Apply to [facility] ne 0.025 % 10-04 area(s) 3 ity of ointment 00:00: (three) [place] 00 times Medical daily. For Branch itching diltiazem 2020-09 Yes [id number] 120mg Take 1 [facility] nivers (CARTIA XT) 09 capsule by it y of 120 mg 24 00:00: mouth 2 [place] hr capsule 00 (two) Medical times Branch daily. cyanocobala 2020-09 Yes [id number] 1000ug 1 mL by [facility] min 1,000 -09 Intramuscu ity of mcg/mL 00:00: lar route [place] injection 00 every 2 Medical (two) Branch weeks. levothyroxi 2020-09 Yes [id number] 50ug Take 1 [facility] ne 50 mcg 09 tablet by ity o f tablet 00:00: mouth [place] 00 every Medical morning. Branch fluticasone 2020-09 Yes [id number] 2{puff} Inhale 2 [facility] propionate -09 Puffs ity of (FLOVENT 00:00: every 12 [place] HFA) 110 00 (twelve) Medical mcg/actuati hours. Branch on inhaler Rinse mouth after each use. levalbutero 2020-09 Yes [id number] .63mg Inhale [facility] l 0.63 mg/3 -09 0.63 mg 3 ity of mL 00:00: (three) [place] nebulizer 00 times Medical solution daily as Branch needed for Wheezing or Shortness of Breath. clotrimazol 2020-09 Yes [id number] Apply to [facility] e-betametha 10-04 area(s) 2 ity of sone cream 00:00: (two) [place] 00 times Medical daily. Branch cyclobenzap 2020-09 Yes [id number] TAKE 1 [facility] rine 5 mg -09 TABLET BY ity o f tablet 00:00: MOUTH [place] 00 EVERY 8 Medical HOURS Branch NEEDED econazole 2020-09 Yes [id number] Apply to [facility] nitrate 1 % 09 area(s) 2 ity of cream 00:00: (two) [place] 00 times Medical daily. Branch albuterol 2020-09 Yes [id number] 2{puff} Inhale 2 [facility] (PROAIR 1-09 Puffs ity of HFA) 90 00:00: every 6 [place] mcg/actuati 00 (six) Medical on inhaler hours as Branc h needed for Wheezing or Shortness of Breath. triamcinolo 2020-09 Yes [id number] Apply to [facility] ne 0.025 % 1-09 area(s) 3 ity of ointment 00:00: (three) [place] 00 times Medical daily. For Branch itching cyanocobala 2020-09 Yes [id number] 1000ug 1 mL by [facility] min 1,000 -09 Intramuscu ity of mcg/mL 00:00: lar route [place] injection 00 every 2 Medical (two) Branch weeks. levothyroxi 2020-09 Yes [id number] 50ug Take 1 [facility] ne 50 mcg 1-09 tablet by ity o f tablet 00:00: mouth [place] 00 every Medical morning. Branch fluticasone 2020-09 Yes [id number] 2{puff} Inhale 2 [facility] propionate 1-09 Puffs ity of (FLOVENT 00:00: every 12 [place] HFA) 110 00 (twelve) Medical mcg/actuati hours. Branch on inhaler Rinse mouth after each use. levalbutero 2020-09 Yes [id number] .63mg Inhale [facility] l 0.63 mg/3 1-09 0.63 mg 3 ity of mL 00:00: (three) [place] nebulizer 00 times Medical solution daily as Branch needed for Wheezing or Shortness of Breath. clotrimazol 2020-09 Yes [id number] Apply to [facility] e-betametha 09 area(s) 2 ity of sone cream 00:00: (two) [place] 00 times Medical daily. Branch cyclobenzap 2020-09 Yes [id number] TAKE 1 [facility] rine 5 mg -09 TABLET BY ity o f tablet 00:00: MOUTH [place] 00 EVERY 8 Medical HOURS Branch NEEDED econazole 2020-09 Yes [id number] Apply to [facility] nitrate 1 % -09 area(s) 2 ity of cream 00:00: (two) [place] 00 times Medical daily. Branch albuterol 2020-09 Yes [id number] 2{puff} Inhale 2 [facility] (PROAIR 1-09 Puffs ity of HFA) 90 00:00: every 6 [place] mcg/actuati 00 (six) Medical on inhaler hours as Branc h needed for Wheezing or Shortness of Breath. triamcinolo 2020-09 Yes [id number] Apply to [facility] ne 0.025 % -09 area(s) 3 ity of ointment 00:00: (three) [place] 00 times Medical daily. For Branch itching cyanocobala 2020-09 Yes [id number] 1000ug 1 mL by [facility] min 1,000 -09 Intramuscu ity of mcg/mL 00:00: lar route [place] injection 00 every 2 Medical (two) Branch weeks. levothyroxi 2020-09 Yes [id number] 50ug Take 1 [facility] ne 50 mcg 1-09 tablet by ity o f tablet 00:00: mouth [place] 00 every Medical morning. Branch fluticasone 2020-09 Yes [id number] 2{puff} Inhale 2 [facility] propionate -09 Puffs ity of (FLOVENT 00:00: every 12 [place] HFA) 110 00 (twelve) Medical mcg/actuati hours. Branch on inhaler Rinse mouth after each use. levalbutero 2020-09 Yes [id number] .63mg Inhale [facility] l 0.63 mg/3 -09 0.63 mg 3 ity of mL 00:00: (three) [place] nebulizer 00 times Medical solution daily as Branch needed for Wheezing or Shortness of Breath. clotrimazol 2020-09 Yes [id number] Apply to [facility] e-betametha 10-04 area(s) 2 ity of sone cream 00:00: (two) [place] 00 times Medical daily. Branch cyclobenzap 2020-09 Yes [id number] TAKE 1 [facility] rine 5 mg -09 TABLET BY ity o f tablet 00:00: MOUTH [place] 00 EVERY 8 Medical HOURS Branch NEEDED econazole 2020-09 Yes [id number] Apply to [facility] nitrate 1 % 09 area(s) 2 ity of cream 00:00: (two) [place] 00 times Medical daily. Branch albuterol 2020-09 Yes [id number] 2{puff} Inhale 2 [facility] (PROAIR 1-09 Puffs ity of HFA) 90 00:00: every 6 [place] mcg/actuati 00 (six) Medical on inhaler hours as Branc h needed for Wheezing or Shortness of Breath. triamcinolo 2020-09 Yes [id number] Apply to [facility] ne 0.025 % -09 area(s) 3 ity of ointment 00:00: (three) [place] 00 times Medical daily. For Branch itching cyanocobala 2020-09 Yes [id number] 1000ug 1 mL by [facility] min 1,000 1-09 Intramuscu ity of mcg/mL 00:00: lar route [place] injection 00 every 2 Medical (two) Branch weeks. levothyroxi 2020-09 Yes [id number] 50ug Take 1 [facility] ne 50 mcg 1-09 tablet by ity o f tablet 00:00: mouth [place] 00 every Medical morning. Branch fluticasone 2020-09 Yes [id number] 2{puff} Inhale 2 [facility] propionate 1-09 Puffs ity of (FLOVENT 00:00: every 12 [place] HFA) 110 00 (twelve) Medical mcg/actuati hours. Branch on inhaler Rinse mouth after each use. levalbutero 2020-09 Yes [id number] .63mg Inhale [facility] l 0.63 mg/3 -09 0.63 mg 3 ity of mL 00:00: (three) [place] nebulizer 00 times Medical solution daily as Branch needed for Wheezing or Shortness of Breath. clotrimazol 2020-09 Yes [id number] Apply to [facility] e-betametha 10-04 area(s) 2 ity of sone cream 00:00: (two) [place] 00 times Medical daily. Branch cyclobenzap 2020-09 Yes [id number] TAKE 1 [facility] rine 5 mg -09 TABLET BY ity o f tablet 00:00: MOUTH [place] 00 EVERY 8 Medical HOURS Branch NEEDED econazole 2020-09 Yes [id number] Apply to [facility] nitrate 1 % 09 area(s) 2 ity of cream 00:00: (two) [place] 00 times Medical daily. Branch albuterol 2020-09 Yes [id number] 2{puff} Inhale 2 [facility] (PROAIR 1-09 Puffs ity of HFA) 90 00:00: every 6 [place] mcg/actuati 00 (six) Medical on inhaler hours as Branc h needed for Wheezing or Shortness of Breath. triamcinolo 2020-09 Yes [id number] Apply to [facility] ne 0.025 % 1-09 area(s) 3 ity of ointment 00:00: (three) [place] 00 times Medical daily. For Branch itching cyanocobala 2020-09 Yes [id number] 1000ug 1 mL by [facility] min 1,000 1-09 Intramuscu ity of mcg/mL 00:00: lar route [place] injection 00 every 2 Medical (two) Branch weeks. levothyroxi 2020-09 Yes [id number] 50ug Take 1 [facility] ne 50 mcg 1-09 tablet by ity o f tablet 00:00: mouth [place] 00 every Medical morning. Branch fluticasone 2020-09 Yes [id number] 2{puff} Inhale 2 [facility] propionate 1-09 Puffs ity of (FLOVENT 00:00: every 12 [place] HFA) 110 00 (twelve) Medical mcg/actuati hours. Branch on inhaler Rinse mouth after each use. levalbutero 2020-09 Yes [id number] .63mg Inhale [facility] l 0.63 mg/3 1-09 0.63 mg 3 ity of mL 00:00: (three) [place] nebulizer 00 times Medical solution daily as Branch needed for Wheezing or Shortness of Breath. clotrimazol 2020-09 Yes [id number] Apply to [facility] e-betametha 1-09 area(s) 2 ity of sone cream 00:00: (two) [place] 00 times Medical daily. Branch cyclobenzap 2020-09 Yes [id number] TAKE 1 [facility] rine 5 mg 1-09 TABLET BY ity o f tablet 00:00: MOUTH [place] 00 EVERY 8 Medical HOURS Branch NEEDED econazole 2020-09 Yes [id number] Apply to [facility] nitrate 1 % -09 area(s) 2 ity of cream 00:00: (two) [place] 00 times Medical daily. Branch albuterol 2020-09 Yes [id number] 2{puff} Inhale 2 [facility] (PROAIR 1-09 Puffs ity of HFA) 90 00:00: every 6 [place] mcg/actuati 00 (six) Medical on inhaler hours as Branc h needed for Wheezing or Shortness of Breath. triamcinolo 2020-09 Yes [id number] Apply to [facility] ne 0.025 % 1-09 area(s) 3 ity of ointment 00:00: (three) [place] 00 times Medical daily. For Branch itching cyanocobala 2020-09 Yes [id number] 1000ug 1 mL by [facility] min 1,000 1-09 Intramuscu ity of mcg/mL 00:00: lar route [place] injection 00 every 2 Medical (two) Branch weeks. levothyroxi 2020-09 Yes [id number] 50ug Take 1 [facility] ne 50 mcg 1-09 tablet by ity o f tablet 00:00: mouth [place] 00 every Medical morning. Branch fluticasone 2020-09 Yes [id number] 2{puff} Inhale 2 [facility] propionate 1-09 Puffs ity of (FLOVENT 00:00: every 12 [place] HFA) 110 00 (twelve) Medical mcg/actuati hours. Branch on inhaler Rinse mouth after each use. levalbutero 2020-09 Yes [id number] .63mg Inhale [facility] l 0.63 mg/3 1-09 0.63 mg 3 ity of mL 00:00: (three) [place] nebulizer 00 times Medical solution daily as Branch needed for Wheezing or Shortness of Breath. clotrimazol 2020-09 Yes [id number] Apply to [facility] e-betametha 1-09 area(s) 2 ity of sone cream 00:00: (two) [place] 00 times Medical daily. Branch cyclobenzap 2020-09 Yes [id number] TAKE 1 [facility] rine 5 mg 1-09 TABLET BY ity o f tablet 00:00: MOUTH [place] 00 EVERY 8 Medical HOURS Branch NEEDED econazole 2020-09 Yes [id number] Apply to [facility] nitrate 1 % -09 area(s) 2 ity of cream 00:00: (two) [place] 00 times Medical daily. Branch albuterol 2020-09 Yes [id number] 2{puff} Inhale 2 [facility] (PROAIR 1-09 Puffs ity of HFA) 90 00:00: every 6 [place] mcg/actuati 00 (six) Medical on inhaler hours as Branc h needed for Wheezing or Shortness of Breath. triamcinolo 2020-09 Yes [id number] Apply to [facility] ne 0.025 % 1-09 area(s) 3 ity of ointment 00:00: (three) [place] 00 times Medical daily. For Branch itching cyanocobala 2020-09 Yes [id number] 1000ug 1 mL by [facility] min 1,000 1-09 Intramuscu ity of mcg/mL 00:00: lar route [place] injection 00 every 2 Medical (two) Branch weeks. levothyroxi 2020-09 Yes [id number] 50ug Take 1 [facility] ne 50 mcg 1-09 tablet by ity o f tablet 00:00: mouth [place] 00 every Medical morning. Branch fluticasone 2020-09 Yes [id number] 2{puff} Inhale 2 [facility] propionate 1-09 Puffs ity of (FLOVENT 00:00: every 12 [place] HFA) 110 00 (twelve) Medical mcg/actuati hours. Branch on inhaler Rinse mouth after each use. levalbutero 2020-09 Yes [id number] .63mg Inhale [facility] l 0.63 mg/3 1-09 0.63 mg 3 ity of mL 00:00: (three) [place] nebulizer 00 times Medical solution daily as Branch needed for Wheezing or Shortness of Breath. clotrimazol 2020-09 Yes [id number] Apply to [facility] e-betametha -09 area(s) 2 ity of sone cream 00:00: (two) [place] 00 times Medical daily. Branch cyclobenzap 2020-09 Yes [id number] TAKE 1 [facility] rine 5 mg 1-09 TABLET BY ity o f tablet 00:00: MOUTH [place] 00 EVERY 8 Medical HOURS Branch NEEDED econazole 2020-09 Yes [id number] Apply to [facility] nitrate 1 % -09 area(s) 2 ity of cream 00:00: (two) [place] 00 times Medical daily. Branch albuterol 2020-09 Yes [id number] 2{puff} Inhale 2 [facility] (PROAIR 1-09 Puffs ity of HFA) 90 00:00: every 6 [place] mcg/actuati 00 (six) Medical on inhaler hours as Branc h needed for Wheezing or Shortness of Breath. triamcinolo 2020-09 Yes [id number] Apply to [facility] ne 0.025 % 1-09 area(s) 3 ity of ointment 00:00: (three) [place] 00 times Medical daily. For Branch itching cyanocobala 2020-09 Yes [id number] 1000ug 1 mL by [facility] min 1,000 1-09 Intramuscu ity of mcg/mL 00:00: lar route [place] injection 00 every 2 Medical (two) Branch weeks. levothyroxi 2020-09 Yes [id number] 50ug Take 1 [facility] ne 50 mcg 1-09 tablet by ity o f tablet 00:00: mouth [place] 00 every Medical morning. Branch fluticasone 2020-09 Yes [id number] 2{puff} Inhale 2 [facility] propionate 1-09 Puffs ity of (FLOVENT 00:00: every 12 [place] HFA) 110 00 (twelve) Medical mcg/actuati hours. Branch on inhaler Rinse mouth after each use. levalbutero 2020-09 Yes [id number] .63mg Inhale [facility] l 0.63 mg/3 1-09 0.63 mg 3 ity of mL 00:00: (three) [place] nebulizer 00 times Medical solution daily as Branch needed for Wheezing or Shortness of Breath. clotrimazol 2020-09 Yes [id number] Apply to [facility] e-betametha 1-09 area(s) 2 ity of sone cream 00:00: (two) [place] 00 times Medical daily. Branch cyclobenzap 2020-09 Yes [id number] TAKE 1 [facility] rine 5 mg 1-09 TABLET BY ity o f tablet 00:00: MOUTH [place] 00 EVERY 8 Medical HOURS Branch NEEDED econazole 2020-09 Yes [id number] Apply to [facility] nitrate 1 % 1-09 area(s) 2 ity of cream 00:00: (two) [place] 00 times Medical daily. Branch albuterol 2020-09 Yes [id number] 2{puff} Inhale 2 [facility] (PROAIR 1-09 Puffs ity of HFA) 90 00:00: every 6 [place] mcg/actuati 00 (six) Medical on inhaler hours as Branc h needed for Wheezing or Shortness of Breath. triamcinolo 2020-09 Yes [id number] Apply to [facility] ne 0.025 % 1-09 area(s) 3 ity of ointment 00:00: (three) [place] 00 times Medical daily. For Branch itching cyanocobala 2020-09 Yes [id number] 1000ug 1 mL by [facility] min 1,000 1-09 Intramuscu ity of mcg/mL 00:00: lar route [place] injection 00 every 2 Medical (two) Branch weeks. levothyroxi 2020-09 Yes [id number] 50ug Take 1 [facility] ne 50 mcg 1-09 tablet by ity o f tablet 00:00: mouth [place] 00 every Medical morning. Branch fluticasone 2020-09 Yes [id number] 2{puff} Inhale 2 [facility] propionate 1-09 Puffs ity of (FLOVENT 00:00: every 12 [place] HFA) 110 00 (twelve) Medical mcg/actuati hours. Branch on inhaler Rinse mouth after each use. levalbutero 2020-09 Yes [id number] .63mg Inhale [facility] l 0.63 mg/3 1-09 0.63 mg 3 ity of mL 00:00: (three) [place] nebulizer 00 times Medical solution daily as Branch needed for Wheezing or Shortness of Breath. clotrimazol 2020-09 Yes [id number] Apply to [facility] e-betametha -09 area(s) 2 ity of sone cream 00:00: (two) [place] 00 times Medical daily. Branch cyclobenzap 2020-09 Yes [id number] TAKE 1 [facility] rine 5 mg -09 TABLET BY ity o f tablet 00:00: MOUTH [place] 00 EVERY 8 Medical HOURS Branch NEEDED econazole 2020-09 Yes [id number] Apply to [facility] nitrate 1 % -09 area(s) 2 ity of cream 00:00: (two) [place] 00 times Medical daily. Branch albuterol 2020-09 Yes [id number] 2{puff} Inhale 2 [facility] (PROAIR 1-09 Puffs ity of HFA) 90 00:00: every 6 [place] mcg/actuati 00 (six) Medical on inhaler hours as Branc h needed for Wheezing or Shortness of Breath. triamcinolo 2020-09 Yes [id number] Apply to [facility] ne 0.025 % -09 area(s) 3 ity of ointment 00:00: (three) [place] 00 times Medical daily. For Branch itching cyanocobala 2020-09 Yes [id number] 1000ug 1 mL by [facility] min 1,000 1-09 Intramuscu ity of mcg/mL 00:00: lar route [place] injection 00 every 2 Medical (two) Branch weeks. levothyroxi 2020-09 Yes [id number] 50ug Take 1 [facility] ne 50 mcg 1-09 tablet by ity o f tablet 00:00: mouth [place] 00 every Medical morning. Branch fluticasone 2020-09 Yes [id number] 2{puff} Inhale 2 [facility] propionate 1-09 Puffs ity of (FLOVENT 00:00: every 12 [place] HFA) 110 00 (twelve) Medical mcg/actuati hours. Branch on inhaler Rinse mouth after each use. levalbutero 2020-09 Yes [id number] .63mg Inhale [facility] l 0.63 mg/3 1-09 0.63 mg 3 ity of mL 00:00: (three) [place] nebulizer 00 times Medical solution daily as Branch needed for Wheezing or Shortness of Breath. clotrimazol 2020-09 Yes [id number] Apply to [facility] e-betametha -09 area(s) 2 ity of sone cream 00:00: (two) [place] 00 times Medical daily. Branch cyclobenzap 2020-09 Yes [id number] TAKE 1 [facility] rine 5 mg -09 TABLET BY ity o f tablet 00:00: MOUTH [place] 00 EVERY 8 Medical HOURS Branch NEEDED econazole 2020-09 Yes [id number] Apply to [facility] nitrate 1 % -09 area(s) 2 ity of cream 00:00: (two) [place] 00 times Medical daily. Branch albuterol 2020-09 Yes [id number] 2{puff} Inhale 2 [facility] (PROAIR 1-09 Puffs ity of HFA) 90 00:00: every 6 [place] mcg/actuati 00 (six) Medical on inhaler hours as Branc h needed for Wheezing or Shortness of Breath. triamcinolo 2020-09 Yes [id number] Apply to [facility] ne 0.025 % -09 area(s) 3 ity of ointment 00:00: (three) [place] 00 times Medical daily. For Branch itching cyanocobala 2020-09 Yes [id number] 1000ug 1 mL by [facility] min 1,000 1-09 Intramuscu ity of mcg/mL 00:00: lar route [place] injection 00 every 2 Medical (two) Branch weeks. levothyroxi 2020-09 Yes [id number] 50ug Take 1 [facility] ne 50 mcg 1-09 tablet by ity o f tablet 00:00: mouth [place] 00 every Medical morning. Branch fluticasone 2020-09 Yes [id number] 2{puff} Inhale 2 [facility] propionate 1-09 Puffs ity of (FLOVENT 00:00: every 12 [place] HFA) 110 00 (twelve) Medical mcg/actuati hours. Branch on inhaler Rinse mouth after each use. levalbutero 2020-09 Yes [id number] .63mg Inhale [facility] l 0.63 mg/3 1-09 0.63 mg 3 ity of mL 00:00: (three) [place] nebulizer 00 times Medical solution daily as Branch needed for Wheezing or Shortness of Breath. clotrimazol 2020-09 Yes [id number] Apply to [facility] e-betametha 1-09 area(s) 2 ity of sone cream 00:00: (two) [place] 00 times Medical daily. Branch cyclobenzap 2020-09 Yes [id number] TAKE 1 [facility] rine 5 mg 1-09 TABLET BY ity o f tablet 00:00: MOUTH [place] 00 EVERY 8 Medical HOURS Branch NEEDED econazole 2020-09 Yes [id number] Apply to [facility] nitrate 1 % -09 area(s) 2 ity of cream 00:00: (two) [place] 00 times Medical daily. Branch albuterol 2020-09 Yes [id number] 2{puff} Inhale 2 [facility] (PROAIR 1-09 Puffs ity of HFA) 90 00:00: every 6 [place] mcg/actuati 00 (six) Medical on inhaler hours as Branc h needed for Wheezing or Shortness of Breath. triamcinolo 2020-09 Yes [id number] Apply to [facility] ne 0.025 % 1-09 area(s) 3 ity of ointment 00:00: (three) [place] 00 times Medical daily. For Branch itching cyanocobala 2020-09 Yes [id number] 1000ug 1 mL by [facility] min 1,000 1-09 Intramuscu ity of mcg/mL 00:00: lar route [place] injection 00 every 2 Medical (two) Branch weeks. levothyroxi 2020-09 Yes [id number] 50ug Take 1 [facility] ne 50 mcg 1-09 tablet by ity o f tablet 00:00: mouth [place] 00 every Medical morning. Branch fluticasone 2020-09 Yes [id number] 2{puff} Inhale 2 [facility] propionate 1-09 Puffs ity of (FLOVENT 00:00: every 12 [place] HFA) 110 00 (twelve) Medical mcg/actuati hours. Branch on inhaler Rinse mouth after each use. levalbutero 2020-09 Yes [id number] .63mg Inhale [facility] l 0.63 mg/3 1-09 0.63 mg 3 ity of mL 00:00: (three) [place] nebulizer 00 times Medical solution daily as Branch needed for Wheezing or Shortness of Breath. clotrimazol 2020-09 Yes [id number] Apply to [facility] e-betametha 09 area(s) 2 ity of sone cream 00:00: (two) [place] 00 times Medical daily. Branch cyclobenzap 2020-09 Yes [id number] TAKE 1 [facility] rine 5 mg -09 TABLET BY ity o f tablet 00:00: MOUTH [place] 00 EVERY 8 Medical HOURS Branch NEEDED econazole 2020-09 Yes [id number] Apply to [facility] nitrate 1 % 10-04 area(s) 2 ity of cream 00:00: (two) [place] 00 times Medical daily. Branch albuterol 2020-09 Yes [id number] 2{puff} Inhale 2 [facility] (PROAIR 1-09 Puffs ity of HFA) 90 00:00: every 6 [place] mcg/actuati 00 (six) Medical on inhaler hours as Branc h needed for Wheezing or Shortness of Breath. triamcinolo 2020-09 Yes [id number] Apply to [facility] ne 0.025 % 10-04 area(s) 3 ity of ointment 00:00: (three) [place] 00 times Medical daily. For Branch itching cyanocobala 2020-09 Yes [id number] 1000ug 1 mL by [facility] min 1,000 1-09 Intramuscu ity of mcg/mL 00:00: lar route [place] injection 00 every 2 Medical (two) Branch weeks. levothyroxi 2020-09 Yes [id number] 50ug Take 1 [facility] ne 50 mcg 1-09 tablet by ity o f tablet 00:00: mouth [place] 00 every Medical morning. Branch fluticasone 2020-09 Yes [id number] 2{puff} Inhale 2 [facility] propionate 1-09 Puffs ity of (FLOVENT 00:00: every 12 [place] HFA) 110 00 (twelve) Medical mcg/actuati hours. Branch on inhaler Rinse mouth after each use. levalbutero 2020-09 Yes [id number] .63mg Inhale [facility] l 0.63 mg/3 1-09 0.63 mg 3 ity of mL 00:00: (three) [place] nebulizer 00 times Medical solution daily as Branch needed for Wheezing or Shortness of Breath. clotrimazol 2020-09 Yes [id number] Apply to [facility] e-betametha 09 area(s) 2 ity of sone cream 00:00: (two) [place] 00 times Medical daily. Branch cyclobenzap 2020-09 Yes [id number] TAKE 1 [facility] rine 5 mg 09 TABLET BY ity o f tablet 00:00: MOUTH [place] 00 EVERY 8 Medical HOURS Branch NEEDED econazole 2020-09 Yes [id number] Apply to [facility] nitrate 1 % 10-04 area(s) 2 ity of cream 00:00: (two) [place] 00 times Medical daily. Branch albuterol 2020-09 Yes [id number] 2{puff} Inhale 2 [facility] (PROAIR 1-09 Puffs ity of HFA) 90 00:00: every 6 [place] mcg/actuati 00 (six) Medical on inhaler hours as Branc h needed for Wheezing or Shortness of Breath. triamcinolo 2020-09 Yes [id number] Apply to [facility] ne 0.025 % 10-04 area(s) 3 ity of ointment 00:00: (three) [place] 00 times Medical daily. For Branch itching cyanocobala 2020-09 Yes [id number] 1000ug 1 mL by [facility] min 1,000 -09 Intramuscu ity of mcg/mL 00:00: lar route [place] injection 00 every 2 Medical (two) Branch weeks. levothyroxi 2020-09 Yes [id number] 50ug Take 1 [facility] ne 50 mcg 1-09 tablet by ity o f tablet 00:00: mouth [place] 00 every Medical morning. Branch fluticasone 2020-09 Yes [id number] 2{puff} Inhale 2 [facility] propionate 1-09 Puffs ity of (FLOVENT 00:00: every 12 [place] HFA) 110 00 (twelve) Medical mcg/actuati hours. Branch on inhaler Rinse mouth after each use. levalbutero 2020-09 Yes [id number] .63mg Inhale [facility] l 0.63 mg/3 1-09 0.63 mg 3 ity of mL 00:00: (three) [place] nebulizer 00 times Medical solution daily as Branch needed for Wheezing or Shortness of Breath. clotrimazol 2020-09 Yes [id number] Apply to [facility] e-betametha 09 area(s) 2 ity of sone cream 00:00: (two) [place] 00 times Medical daily. Branch cyclobenzap 2020-09 Yes [id number] TAKE 1 [facility] rine 5 mg -09 TABLET BY ity o f tablet 00:00: MOUTH [place] 00 EVERY 8 Medical HOURS Branch NEEDED econazole 2020-09 Yes [id number] Apply to [facility] nitrate 1 % 10-04 area(s) 2 ity of cream 00:00: (two) [place] 00 times Medical daily. Branch albuterol 2020-09 Yes [id number] 2{puff} Inhale 2 [facility] (PROAIR 1-09 Puffs ity of HFA) 90 00:00: every 6 [place] mcg/actuati 00 (six) Medical on inhaler hours as Branc h needed for Wheezing or Shortness of Breath. triamcinolo 2020-09 Yes [id number] Apply to [facility] ne 0.025 % 10-04 area(s) 3 ity of ointment 00:00: (three) [place] 00 times Medical daily. For Branch itching cyanocobala 2020-09 Yes [id number] 1000ug 1 mL by [facility] min 1,000 -09 Intramuscu ity of mcg/mL 00:00: lar route [place] injection 00 every 2 Medical (two) Branch weeks. levothyroxi 2020-09 Yes [id number] 50ug Take 1 [facility] ne 50 mcg -09 tablet by ity o f tablet 00:00: mouth [place] 00 every Medical morning. Branch fluticasone 2020-09 Yes [id number] 2{puff} Inhale 2 [facility] propionate 1-09 Puffs ity of (FLOVENT 00:00: every 12 [place] HFA) 110 00 (twelve) Medical mcg/actuati hours. Branch on inhaler Rinse mouth after each use. levalbutero 2020-09 Yes [id number] .63mg Inhale [facility] l 0.63 mg/3 1-09 0.63 mg 3 ity of mL 00:00: (three) [place] nebulizer 00 times Medical solution daily as Branch needed for Wheezing or Shortness of Breath. clotrimazol 2020-09 Yes [id number] Apply to [facility] e-betametha -09 area(s) 2 ity of sone cream 00:00: (two) [place] 00 times Medical daily. Branch cyclobenzap 2020-09 Yes [id number] TAKE 1 [facility] rine 5 mg 1-09 TABLET BY ity o f tablet 00:00: MOUTH [place] 00 EVERY 8 Medical HOURS Branch NEEDED econazole 2020-09 Yes [id number] Apply to [facility] nitrate 1 % -09 area(s) 2 ity of cream 00:00: (two) [place] 00 times Medical daily. Branch albuterol 2020-09 Yes [id number] 2{puff} Inhale 2 [facility] (PROAIR 1-09 Puffs ity of HFA) 90 00:00: every 6 [place] mcg/actuati 00 (six) Medical on inhaler hours as Branc h needed for Wheezing or Shortness of Breath. triamcinolo 2020-09 Yes [id number] Apply to [facility] ne 0.025 % 10-04 area(s) 3 ity of ointment 00:00: (three) [place] 00 times Medical daily. For Branch itching cyanocobala 2020-09 Yes [id number] 1000ug 1 mL by [facility] min 1,000 1-09 Intramuscu ity of mcg/mL 00:00: lar route [place] injection 00 every 2 Medical (two) Branch weeks. levothyroxi 2020-09 Yes [id number] 50ug Take 1 [facility] ne 50 mcg 1-09 tablet by ity o f tablet 00:00: mouth [place] 00 every Medical morning. Branch fluticasone 2020-09 Yes [id number] 2{puff} Inhale 2 [facility] propionate 1-09 Puffs ity of (FLOVENT 00:00: every 12 [place] HFA) 110 00 (twelve) Medical mcg/actuati hours. Branch on inhaler Rinse mouth after each use. levalbutero 2020-09 Yes [id number] .63mg Inhale [facility] l 0.63 mg/3 1-09 0.63 mg 3 ity of mL 00:00: (three) [place] nebulizer 00 times Medical solution daily as Branch needed for Wheezing or Shortness of Breath. clotrimazol 2020-09 Yes [id number] Apply to [facility] e-betametha -09 area(s) 2 ity of sone cream 00:00: (two) [place] 00 times Medical daily. Branch cyclobenzap 2020-09 Yes [id number] TAKE 1 [facility] rine 5 mg 1-09 TABLET BY ity o f tablet 00:00: MOUTH [place] 00 EVERY 8 Medical HOURS Branch NEEDED econazole 2020-09 Yes [id number] Apply to [facility] nitrate 1 % 09 area(s) 2 ity of cream 00:00: (two) [place] 00 times Medical daily. Branch albuterol 2020-09 Yes [id number] 2{puff} Inhale 2 [facility] (PROAIR 1-09 Puffs ity of HFA) 90 00:00: every 6 [place] mcg/actuati 00 (six) Medical on inhaler hours as Branc h needed for Wheezing or Shortness of Breath. triamcinolo 2020-09 Yes [id number] Apply to [facility] ne 0.025 % 10-04 area(s) 3 ity of ointment 00:00: (three) [place] 00 times Medical daily. For Branch itching cyanocobala 2020-09 Yes [id number] 1000ug 1 mL by [facility] min 1,000 1-09 Intramuscu ity of mcg/mL 00:00: lar route [place] injection 00 every 2 Medical (two) Branch weeks. levothyroxi 2020-09 Yes [id number] 50ug Take 1 [facility] ne 50 mcg -09 tablet by ity o f tablet 00:00: mouth [place] 00 every Medical morning. Branch fluticasone 2020-09 Yes [id number] 2{puff} Inhale 2 [facility] propionate 1-09 Puffs ity of (FLOVENT 00:00: every 12 [place] HFA) 110 00 (twelve) Medical mcg/actuati hours. Branch on inhaler Rinse mouth after each use. levalbutero 2020-09 Yes [id number] .63mg Inhale [facility] l 0.63 mg/3 1-09 0.63 mg 3 ity of mL 00:00: (three) [place] nebulizer 00 times Medical solution daily as Branch needed for Wheezing or Shortness of Breath. clotrimazol 2020-09 Yes [id number] Apply to [facility] e-betametha -09 area(s) 2 ity of sone cream 00:00: (two) [place] 00 times Medical daily. Branch cyclobenzap 2020-09 Yes [id number] TAKE 1 [facility] rine 5 mg -09 TABLET BY ity o f tablet 00:00: MOUTH [place] 00 EVERY 8 Medical HOURS Branch NEEDED econazole 2020-09 Yes [id number] Apply to [facility] nitrate 1 % -09 area(s) 2 ity of cream 00:00: (two) [place] 00 times Medical daily. Branch albuterol 2020-09 Yes [id number] 2{puff} Inhale 2 [facility] (PROAIR 1-09 Puffs ity of HFA) 90 00:00: every 6 [place] mcg/actuati 00 (six) Medical on inhaler hours as Branc h needed for Wheezing or Shortness of Breath. triamcinolo 2020-09 Yes [id number] Apply to [facility] ne 0.025 % 10-04 area(s) 3 ity of ointment 00:00: (three) [place] 00 times Medical daily. For Branch itching cyanocobala 2020-09 Yes [id number] 1000ug 1 mL by [facility] min 1,000 1-09 Intramuscu ity of mcg/mL 00:00: lar route [place] injection 00 every 2 Medical (two) Branch weeks. levothyroxi 2020-09 Yes [id number] 50ug Take 1 [facility] ne 50 mcg 09 tablet by ity o f tablet 00:00: mouth [place] 00 every Medical morning. Branch fluticasone 2020-09 Yes [id number] 2{puff} Inhale 2 [facility] propionate 1-09 Puffs ity of (FLOVENT 00:00: every 12 [place] HFA) 110 00 (twelve) Medical mcg/actuati hours. Branch on inhaler Rinse mouth after each use. levalbutero 2020-09 Yes [id number] .63mg Inhale [facility] l 0.63 mg/3 1-09 0.63 mg 3 ity of mL 00:00: (three) [place] nebulizer 00 times Medical solution daily as Branch needed for Wheezing or Shortness of Breath. clotrimazol 2020-09 Yes [id number] Apply to [facility] e-betametha -09 area(s) 2 ity of sone cream 00:00: (two) [place] 00 times Medical daily. Branch cyclobenzap 2020-09 Yes [id number] TAKE 1 [facility] rine 5 mg 1-09 TABLET BY ity o f tablet 00:00: MOUTH [place] 00 EVERY 8 Medical HOURS Branch NEEDED econazole 2020-09 Yes [id number] Apply to [facility] nitrate 1 % -09 area(s) 2 ity of cream 00:00: (two) [place] 00 times Medical daily. Branch albuterol 2020-09 Yes [id number] 2{puff} Inhale 2 [facility] (PROAIR 1-09 Puffs ity of HFA) 90 00:00: every 6 [place] mcg/actuati 00 (six) Medical on inhaler hours as Branc h needed for Wheezing or Shortness of Breath. triamcinolo 2020-09 Yes [id number] Apply to [facility] ne 0.025 % 10-04 area(s) 3 ity of ointment 00:00: (three) [place] 00 times Medical daily. For Branch itching cyanocobala 2020-09 Yes [id number] 1000ug 1 mL by [facility] min 1,000 1-09 Intramuscu ity of mcg/mL 00:00: lar route [place] injection 00 every 2 Medical (two) Branch weeks. levothyroxi 2020-09 Yes [id number] 50ug Take 1 [facility] ne 50 mcg -09 tablet by ity o f tablet 00:00: mouth [place] 00 every Medical morning. Branch fluticasone 2020-09 Yes [id number] 2{puff} Inhale 2 [facility] propionate 1-09 Puffs ity of (FLOVENT 00:00: every 12 [place] HFA) 110 00 (twelve) Medical mcg/actuati hours. Branch on inhaler Rinse mouth after each use. levalbutero 2020-09 Yes [id number] .63mg Inhale [facility] l 0.63 mg/3 1-09 0.63 mg 3 ity of mL 00:00: (three) [place] nebulizer 00 times Medical solution daily as Branch needed for Wheezing or Shortness of Breath. clotrimazol 2020-09 Yes [id number] Apply to [facility] e-betametha -09 area(s) 2 ity of sone cream 00:00: (two) [place] 00 times Medical daily. Branch cyclobenzap 2020-09 Yes [id number] TAKE 1 [facility] rine 5 mg 1-09 TABLET BY ity o f tablet 00:00: MOUTH [place] 00 EVERY 8 Medical HOURS Branch NEEDED econazole 2020-09 Yes [id number] Apply to [facility] nitrate 1 % -09 area(s) 2 ity of cream 00:00: (two) [place] 00 times Medical daily. Branch albuterol 2020-09 Yes [id number] 2{puff} Inhale 2 [facility] (PROAIR 1-09 Puffs ity of HFA) 90 00:00: every 6 [place] mcg/actuati 00 (six) Medical on inhaler hours as Branc h needed for Wheezing or Shortness of Breath. triamcinolo 2020-09 Yes [id number] Apply to [facility] ne 0.025 % 10-04 area(s) 3 ity of ointment 00:00: (three) [place] 00 times Medical daily. For Branch itching cyanocobala 2020-09 Yes [id number] 1000ug 1 mL by [facility] min 1,000 1-09 Intramuscu ity of mcg/mL 00:00: lar route [place] injection 00 every 2 Medical (two) Branch weeks. levothyroxi 2020-09 Yes [id number] 50ug Take 1 [facility] ne 50 mcg -09 tablet by ity o f tablet 00:00: mouth [place] 00 every Medical morning. Branch fluticasone 2020-09 Yes [id number] 2{puff} Inhale 2 [facility] propionate 1-09 Puffs ity of (FLOVENT 00:00: every 12 [place] HFA) 110 00 (twelve) Medical mcg/actuati hours. Branch on inhaler Rinse mouth after each use. levalbutero 2020-09 Yes [id number] .63mg Inhale [facility] l 0.63 mg/3 1-09 0.63 mg 3 ity of mL 00:00: (three) [place] nebulizer 00 times Medical solution daily as Branch needed for Wheezing or Shortness of Breath. clotrimazol 2020-09 Yes [id number] Apply to [facility] e-betametha 1-09 area(s) 2 ity of sone cream 00:00: (two) [place] 00 times Medical daily. Branch cyclobenzap 2020-09 Yes [id number] TAKE 1 [facility] rine 5 mg 1-09 TABLET BY ity o f tablet 00:00: MOUTH [place] 00 EVERY 8 Medical HOURS Branch NEEDED econazole 2020-09 Yes [id number] Apply to [facility] nitrate 1 % -09 area(s) 2 ity of cream 00:00: (two) [place] 00 times Medical daily. Branch albuterol 2020-09 Yes [id number] 2{puff} Inhale 2 [facility] (PROAIR 1-09 Puffs ity of HFA) 90 00:00: every 6 [place] mcg/actuati 00 (six) Medical on inhaler hours as Branc h needed for Wheezing or Shortness of Breath. triamcinolo 2020-09 Yes [id number] Apply to [facility] ne 0.025 % 10-04 area(s) 3 ity of ointment 00:00: (three) [place] 00 times Medical daily. For Branch itching cyanocobala 2020-09 Yes [id number] 1000ug 1 mL by [facility] min 1,000 -09 Intramuscu ity of mcg/mL 00:00: lar route [place] injection 00 every 2 Medical (two) Branch weeks. levothyroxi 2020-09 Yes [id number] 50ug Take 1 [facility] ne 50 mcg -09 tablet by ity o f tablet 00:00: mouth [place] 00 every Medical morning. Branch fluticasone 2020-09 Yes [id number] 2{puff} Inhale 2 [facility] propionate 1-09 Puffs ity of (FLOVENT 00:00: every 12 [place] HFA) 110 00 (twelve) Medical mcg/actuati hours. Branch on inhaler Rinse mouth after each use. levalbutero 2020-09 Yes [id number] .63mg Inhale [facility] l 0.63 mg/3 1-09 0.63 mg 3 ity of mL 00:00: (three) [place] nebulizer 00 times Medical solution daily as Branch needed for Wheezing or Shortness of Breath. clotrimazol 2020-09 Yes [id number] Apply to [facility] e-betametha -09 area(s) 2 ity of sone cream 00:00: (two) [place] 00 times Medical daily. Branch cyclobenzap 2020-09 Yes [id number] TAKE 1 [facility] rine 5 mg 1-09 TABLET BY ity o f tablet 00:00: MOUTH [place] 00 EVERY 8 Medical HOURS Branch NEEDED econazole 2020-09 Yes [id number] Apply to [facility] nitrate 1 % 1-09 area(s) 2 ity of cream 00:00: (two) [place] 00 times Medical daily. Branch albuterol 2020-09 Yes [id number] 2{puff} Inhale 2 [facility] (PROAIR 1-09 Puffs ity of HFA) 90 00:00: every 6 [place] mcg/actuati 00 (six) Medical on inhaler hours as Branc h needed for Wheezing or Shortness of Breath. triamcinolo 2020-09 Yes [id number] Apply to [facility] ne 0.025 % 09 area(s) 3 ity of ointment 00:00: (three) [place] 00 times Medical daily. For Branch itching cyanocobala 2020-09 Yes [id number] 1000ug 1 mL by [facility] min 1,000 1-09 Intramuscu ity of mcg/mL 00:00: lar route [place] injection 00 every 2 Medical (two) Branch weeks. levothyroxi 2020-09 Yes [id number] 50ug Take 1 [facility] ne 50 mcg 1-09 tablet by ity o f tablet 00:00: mouth [place] 00 every Medical morning. Branch fluticasone 2020-09 Yes [id number] 2{puff} Inhale 2 [facility] propionate 1-09 Puffs ity of (FLOVENT 00:00: every 12 [place] HFA) 110 00 (twelve) Medical mcg/actuati hours. Branch on inhaler Rinse mouth after each use. levalbutero 2020-09 Yes [id number] .63mg Inhale [facility] l 0.63 mg/3 1-09 0.63 mg 3 ity of mL 00:00: (three) [place] nebulizer 00 times Medical solution daily as Branch needed for Wheezing or Shortness of Breath. clotrimazol 2020-09 Yes [id number] Apply to [facility] e-betametha 1-09 area(s) 2 ity of sone cream 00:00: (two) [place] 00 times Medical daily. Branch cyclobenzap 2020-09 Yes [id number] TAKE 1 [facility] rine 5 mg 1-09 TABLET BY ity o f tablet 00:00: MOUTH [place] 00 EVERY 8 Medical HOURS Branch NEEDED econazole 2020-09 Yes [id number] Apply to [facility] nitrate 1 % -09 area(s) 2 ity of cream 00:00: (two) [place] 00 times Medical daily. Branch albuterol 2020-09 Yes [id number] 2{puff} Inhale 2 [facility] (PROAIR 1-09 Puffs ity of HFA) 90 00:00: every 6 [place] mcg/actuati 00 (six) Medical on inhaler hours as Branc h needed for Wheezing or Shortness of Breath. triamcinolo 2020-09 Yes [id number] Apply to [facility] ne 0.025 % 10-04 area(s) 3 ity of ointment 00:00: (three) [place] 00 times Medical daily. For Branch itching cyanocobala 2020-09 Yes [id number] 1000ug 1 mL by [facility] min 1,000 -09 Intramuscu ity of mcg/mL 00:00: lar route [place] injection 00 every 2 Medical (two) Branch weeks. levothyroxi 2020-09 Yes [id number] 50ug Take 1 [facility] ne 50 mcg -09 tablet by ity o f tablet 00:00: mouth [place] 00 every Medical morning. Branch fluticasone 2020-09 Yes [id number] 2{puff} Inhale 2 [facility] propionate 1-09 Puffs ity of (FLOVENT 00:00: every 12 [place] HFA) 110 00 (twelve) Medical mcg/actuati hours. Branch on inhaler Rinse mouth after each use. levalbutero 2020-09 Yes [id number] .63mg Inhale [facility] l 0.63 mg/3 1-09 0.63 mg 3 ity of mL 00:00: (three) [place] nebulizer 00 times Medical solution daily as Branch needed for Wheezing or Shortness of Breath. clotrimazol 2020-09 Yes [id number] Apply to [facility] e-betametha -09 area(s) 2 ity of sone cream 00:00: (two) [place] 00 times Medical daily. Branch cyclobenzap 2020-09 Yes [id number] TAKE 1 [facility] rine 5 mg 1-09 TABLET BY ity o f tablet 00:00: MOUTH [place] 00 EVERY 8 Medical HOURS Branch NEEDED econazole 2020-09 Yes [id number] Apply to [facility] nitrate 1 % -09 area(s) 2 ity of cream 00:00: (two) [place] 00 times Medical daily. Branch albuterol 2020-09 Yes [id number] 2{puff} Inhale 2 [facility] (PROAIR 1-09 Puffs ity of HFA) 90 00:00: every 6 [place] mcg/actuati 00 (six) Medical on inhaler hours as Branc h needed for Wheezing or Shortness of Breath. triamcinolo 2020-09 Yes [id number] Apply to [facility] ne 0.025 % -09 area(s) 3 ity of ointment 00:00: (three) [place] 00 times Medical daily. For Branch itching cyanocobala 2020-09 Yes [id number] 1000ug 1 mL by [facility] min 1,000 -09 Intramuscu ity of mcg/mL 00:00: lar route [place] injection 00 every 2 Medical (two) Branch weeks. levothyroxi 2020-09 Yes [id number] 50ug Take 1 [facility] ne 50 mcg -09 tablet by ity o f tablet 00:00: mouth [place] 00 every Medical morning. Branch fluticasone 2020-09 Yes [id number] 2{puff} Inhale 2 [facility] propionate 1-09 Puffs ity of (FLOVENT 00:00: every 12 [place] HFA) 110 00 (twelve) Medical mcg/actuati hours. Branch on inhaler Rinse mouth after each use. levalbutero 2020-09 Yes [id number] .63mg Inhale [facility] l 0.63 mg/3 1-09 0.63 mg 3 ity of mL 00:00: (three) [place] nebulizer 00 times Medical solution daily as Branch needed for Wheezing or Shortness of Breath. clotrimazol 2020-09 Yes [id number] Apply to [facility] e-betametha -09 area(s) 2 ity of sone cream 00:00: (two) [place] 00 times Medical daily. Branch cyclobenzap 2020-09 Yes [id number] TAKE 1 [facility] rine 5 mg -09 TABLET BY ity o f tablet 00:00: MOUTH [place] 00 EVERY 8 Medical HOURS Branch NEEDED econazole 2020-09 Yes [id number] Apply to [facility] nitrate 1 % -09 area(s) 2 ity of cream 00:00: (two) [place] 00 times Medical daily. Branch albuterol 2020-09 Yes [id number] 2{puff} Inhale 2 [facility] (PROAIR 1-09 Puffs ity of HFA) 90 00:00: every 6 [place] mcg/actuati 00 (six) Medical on inhaler hours as Branc h needed for Wheezing or Shortness of Breath. triamcinolo 2020-09 Yes [id number] Apply to [facility] ne 0.025 % -09 area(s) 3 ity of ointment 00:00: (three) [place] 00 times Medical daily. For Branch itching cyanocobala 2020-09 Yes [id number] 1000ug 1 mL by [facility] min 1,000 -09 Intramuscu ity of mcg/mL 00:00: lar route [place] injection 00 every 2 Medical (two) Branch weeks. levothyroxi 2020-09 Yes [id number] 50ug Take 1 [facility] ne 50 mcg -09 tablet by ity o f tablet 00:00: mouth [place] 00 every Medical morning. Branch fluticasone 2020-09 Yes [id number] 2{puff} Inhale 2 [facility] propionate 1-09 Puffs ity of (FLOVENT 00:00: every 12 [place] HFA) 110 00 (twelve) Medical mcg/actuati hours. Branch on inhaler Rinse mouth after each use. levalbutero 2020-09 Yes [id number] .63mg Inhale [facility] l 0.63 mg/3 1-09 0.63 mg 3 ity of mL 00:00: (three) [place] nebulizer 00 times Medical solution daily as Branch needed for Wheezing or Shortness of Breath. clotrimazol 2020-09 Yes [id number] Apply to [facility] e-betametha - area(s) 2 ity of sone cream 00:00: (two) [place] 00 times Medical daily. Branch cyclobenzap 2020-09 Yes [id number] TAKE 1 [facility] rine 5 mg 1-09 TABLET BY ity o f tablet 00:00: MOUTH [place] 00 EVERY 8 Medical HOURS Branch NEEDED econazole 2020-09 Yes [id number] Apply to [facility] nitrate 1 % -09 area(s) 2 ity of cream 00:00: (two) [place] 00 times Medical daily. Branch albuterol 2020-09 Yes [id number] 2{puff} Inhale 2 [facility] (PROAIR 1-09 Puffs ity of HFA) 90 00:00: every 6 [place] mcg/actuati 00 (six) Medical on inhaler hours as Branc h needed for Wheezing or Shortness of Breath. triamcinolo 2020-09 Yes [id number] Apply to [facility] ne 0.025 % 10-04 area(s) 3 ity of ointment 00:00: (three) [place] 00 times Medical daily. For Branch itching cyanocobala 2020-09 Yes [id number] 1000ug 1 mL by [facility] min 1,000 -09 Intramuscu ity of mcg/mL 00:00: lar route [place] injection 00 every 2 Medical (two) Branch weeks. levothyroxi 2020-09 Yes [id number] 50ug Take 1 [facility] ne 50 mcg -09 tablet by ity o f tablet 00:00: mouth [place] 00 every Medical morning. Branch fluticasone 2020-09 Yes [id number] 2{puff} Inhale 2 [facility] propionate 1-09 Puffs ity of (FLOVENT 00:00: every 12 [place] HFA) 110 00 (twelve) Medical mcg/actuati hours. Branch on inhaler Rinse mouth after each use. levalbutero 2020-09 Yes [id number] .63mg Inhale [facility] l 0.63 mg/3 -09 0.63 mg 3 ity of mL 00:00: (three) [place] nebulizer 00 times Medical solution daily as Branch needed for Wheezing or Shortness of Breath. clotrimazol 2020-09 Yes [id number] Apply to [facility] e-betametha 10-04 area(s) 2 ity of sone cream 00:00: (two) [place] 00 times Medical daily. Branch cyclobenzap 2020-09 Yes [id number] TAKE 1 [facility] rine 5 mg -09 TABLET BY ity o f tablet 00:00: MOUTH [place] 00 EVERY 8 Medical HOURS Branch NEEDED econazole 2020-09 Yes [id number] Apply to [facility] nitrate 1 % -09 area(s) 2 ity of cream 00:00: (two) [place] 00 times Medical daily. Branch albuterol 2020-09 Yes [id number] 2{puff} Inhale 2 [facility] (PROAIR 1-09 Puffs ity of HFA) 90 00:00: every 6 [place] mcg/actuati 00 (six) Medical on inhaler hours as Branc h needed for Wheezing or Shortness of Breath. triamcinolo 2020-09 Yes [id number] Apply to [facility] ne 0.025 % -09 area(s) 3 ity of ointment 00:00: (three) [place] 00 times Medical daily. For Branch itching cyanocobala 2020-09 Yes [id number] 1000ug 1 mL by [facility] min 1,000 -09 Intramuscu ity of mcg/mL 00:00: lar route [place] injection 00 every 2 Medical (two) Branch weeks. levothyroxi 2020-09 Yes [id number] 50ug Take 1 [facility] ne 50 mcg 1-09 tablet by ity o f tablet 00:00: mouth [place] 00 every Medical morning. Branch fluticasone 2020-09 Yes [id number] 2{puff} Inhale 2 [facility] propionate 1-09 Puffs ity of (FLOVENT 00:00: every 12 [place] HFA) 110 00 (twelve) Medical mcg/actuati hours. Branch on inhaler Rinse mouth after each use. levalbutero 2020-09 Yes [id number] .63mg Inhale [facility] l 0.63 mg/3 1-09 0.63 mg 3 ity of mL 00:00: (three) [place] nebulizer 00 times Medical solution daily as Branch needed for Wheezing or Shortness of Breath. clotrimazol 2020-09 Yes [id number] Apply to [facility] e-betametha 10-04 area(s) 2 ity of sone cream 00:00: (two) [place] 00 times Medical daily. Branch cyclobenzap 2020-09 Yes [id number] TAKE 1 [facility] rine 5 mg -09 TABLET BY ity o f tablet 00:00: MOUTH [place] 00 EVERY 8 Medical HOURS Branch NEEDED econazole 2020-09 Yes [id number] Apply to [facility] nitrate 1 % -09 area(s) 2 ity of cream 00:00: (two) [place] 00 times Medical daily. Branch albuterol 2020-09 Yes [id number] 2{puff} Inhale 2 [facility] (PROAIR 1-09 Puffs ity of HFA) 90 00:00: every 6 [place] mcg/actuati 00 (six) Medical on inhaler hours as Branc h needed for Wheezing or Shortness of Breath. triamcinolo 2020-09 Yes [id number] Apply to [facility] ne 0.025 % 09 area(s) 3 ity of ointment 00:00: (three) [place] 00 times Medical daily. For Branch itching cyanocobala 2020-09 Yes [id number] 1000ug 1 mL by [facility] min 1,000 -09 Intramuscu ity of mcg/mL 00:00: lar route [place] injection 00 every 2 Medical (two) Branch weeks. levothyroxi 2020-09 Yes [id number] 50ug Take 1 [facility] ne 50 mcg 1-09 tablet by ity o f tablet 00:00: mouth [place] 00 every Medical morning. Branch fluticasone 2020-09 Yes [id number] 2{puff} Inhale 2 [facility] propionate 1-09 Puffs ity of (FLOVENT 00:00: every 12 [place] HFA) 110 00 (twelve) Medical mcg/actuati hours. Branch on inhaler Rinse mouth after each use. levalbutero 2020-09 Yes [id number] .63mg Inhale [facility] l 0.63 mg/3 -09 0.63 mg 3 ity of mL 00:00: (three) [place] nebulizer 00 times Medical solution daily as Branch needed for Wheezing or Shortness of Breath. clotrimazol 2020-09 Yes [id number] Apply to [facility] e-betametha 10-04 area(s) 2 ity of sone cream 00:00: (two) [place] 00 times Medical daily. Branch cyclobenzap 2020-09 Yes [id number] TAKE 1 [facility] rine 5 mg -09 TABLET BY ity o f tablet 00:00: MOUTH [place] 00 EVERY 8 Medical HOURS Branch NEEDED econazole 2020-09 Yes [id number] Apply to [facility] nitrate 1 % 09 area(s) 2 ity of cream 00:00: (two) [place] 00 times Medical daily. Branch albuterol 2020-09 Yes [id number] 2{puff} Inhale 2 [facility] (PROAIR 1-09 Puffs ity of HFA) 90 00:00: every 6 [place] mcg/actuati 00 (six) Medical on inhaler hours as Branc h needed for Wheezing or Shortness of Breath. triamcinolo 2020-09 Yes [id number] Apply to [facility] ne 0.025 % -09 area(s) 3 ity of ointment 00:00: (three) [place] 00 times Medical daily. For Branch itching cyanocobala 2020-09 Yes [id number] 1000ug 1 mL by [facility] min 1,000 -09 Intramuscu ity of mcg/mL 00:00: lar route [place] injection 00 every 2 Medical (two) Branch weeks. levothyroxi 2020-09 Yes [id number] 50ug Take 1 [facility] ne 50 mcg 1-09 tablet by ity o f tablet 00:00: mouth [place] 00 every Medical morning. Branch fluticasone 2020-09 Yes [id number] 2{puff} Inhale 2 [facility] propionate 1-09 Puffs ity of (FLOVENT 00:00: every 12 [place] HFA) 110 00 (twelve) Medical mcg/actuati hours. Branch on inhaler Rinse mouth after each use. levalbutero 2020-09 Yes [id number] .63mg Inhale [facility] l 0.63 mg/3 -09 0.63 mg 3 ity of mL 00:00: (three) [place] nebulizer 00 times Medical solution daily as Branch needed for Wheezing or Shortness of Breath. clotrimazol 2020-09 Yes [id number] Apply to [facility] e-betametha 10-04 area(s) 2 ity of sone cream 00:00: (two) [place] 00 times Medical daily. Branch cyclobenzap 2020-09 Yes [id number] TAKE 1 [facility] rine 5 mg -09 TABLET BY ity o f tablet 00:00: MOUTH [place] 00 EVERY 8 Medical HOURS Branch NEEDED econazole 2020-09 Yes [id number] Apply to [facility] nitrate 1 % -09 area(s) 2 ity of cream 00:00: (two) [place] 00 times Medical daily. Branch albuterol 2020-09 Yes [id number] 2{puff} Inhale 2 [facility] (PROAIR 1-09 Puffs ity of HFA) 90 00:00: every 6 [place] mcg/actuati 00 (six) Medical on inhaler hours as Branc h needed for Wheezing or Shortness of Breath. triamcinolo 2020-09 Yes [id number] Apply to [facility] ne 0.025 % 1-09 area(s) 3 ity of ointment 00:00: (three) [place] 00 times Medical daily. For Branch itching cyanocobala 2020-09 Yes [id number] 1000ug 1 mL by [facility] min 1,000 1-09 Intramuscu ity of mcg/mL 00:00: lar route [place] injection 00 every 2 Medical (two) Branch weeks. levothyroxi 2020-09 Yes [id number] 50ug Take 1 [facility] ne 50 mcg 1-09 tablet by ity o f tablet 00:00: mouth [place] 00 every Medical morning. Branch fluticasone 2020-09 Yes [id number] 2{puff} Inhale 2 [facility] propionate 1-09 Puffs ity of (FLOVENT 00:00: every 12 [place] HFA) 110 00 (twelve) Medical mcg/actuati hours. Branch on inhaler Rinse mouth after each use. levalbutero 2020-09 Yes [id number] .63mg Inhale [facility] l 0.63 mg/3 1-09 0.63 mg 3 ity of mL 00:00: (three) [place] nebulizer 00 times Medical solution daily as Branch needed for Wheezing or Shortness of Breath. clotrimazol 2020-09 Yes [id number] Apply to [facility] e-betametha -09 area(s) 2 ity of sone cream 00:00: (two) [place] 00 times Medical daily. Branch cyclobenzap 2020-09 Yes [id number] TAKE 1 [facility] rine 5 mg -09 TABLET BY ity o f tablet 00:00: MOUTH [place] 00 EVERY 8 Medical HOURS Branch NEEDED econazole 2020-09 Yes [id number] Apply to [facility] nitrate 1 % -09 area(s) 2 ity of cream 00:00: (two) [place] 00 times Medical daily. Branch albuterol 2020-09 Yes [id number] 2{puff} Inhale 2 [facility] (PROAIR 1-09 Puffs ity of HFA) 90 00:00: every 6 [place] mcg/actuati 00 (six) Medical on inhaler hours as Branc h needed for Wheezing or Shortness of Breath. triamcinolo 2020-09 Yes [id number] Apply to [facility] ne 0.025 % 1-09 area(s) 3 ity of ointment 00:00: (three) [place] 00 times Medical daily. For Branch itching cyanocobala 2020-09 Yes [id number] 1000ug 1 mL by [facility] min 1,000 1-09 Intramuscu ity of mcg/mL 00:00: lar route [place] injection 00 every 2 Medical (two) Branch weeks. levothyroxi 2020-09 Yes [id number] 50ug Take 1 [facility] ne 50 mcg 1-09 tablet by ity o f tablet 00:00: mouth [place] 00 every Medical morning. Branch fluticasone 2020-09 Yes [id number] 2{puff} Inhale 2 [facility] propionate 1-09 Puffs ity of (FLOVENT 00:00: every 12 [place] HFA) 110 00 (twelve) Medical mcg/actuati hours. Branch on inhaler Rinse mouth after each use. levalbutero 2020-09 Yes [id number] .63mg Inhale [facility] l 0.63 mg/3 1-09 0.63 mg 3 ity of mL 00:00: (three) [place] nebulizer 00 times Medical solution daily as Branch needed for Wheezing or Shortness of Breath. clotrimazol 2020-09 Yes [id number] Apply to [facility] e-betametha 1-09 area(s) 2 ity of sone cream 00:00: (two) [place] 00 times Medical daily. Branch cyclobenzap 2020-09 Yes [id number] TAKE 1 [facility] rine 5 mg -09 TABLET BY ity o f tablet 00:00: MOUTH [place] 00 EVERY 8 Medical HOURS Branch NEEDED econazole 2020-09 Yes [id number] Apply to [facility] nitrate 1 % -09 area(s) 2 ity of cream 00:00: (two) [place] 00 times Medical daily. Branch albuterol 2020-09 Yes [id number] 2{puff} Inhale 2 [facility] (PROAIR 1-09 Puffs ity of HFA) 90 00:00: every 6 [place] mcg/actuati 00 (six) Medical on inhaler hours as Branc h needed for Wheezing or Shortness of Breath. triamcinolo 2020-09 Yes [id number] Apply to [facility] ne 0.025 % 1-09 area(s) 3 ity of ointment 00:00: (three) [place] 00 times Medical daily. For Branch itching cyanocobala 2020-09 Yes [id number] 1000ug 1 mL by [facility] min 1,000 1-09 Intramuscu ity of mcg/mL 00:00: lar route [place] injection 00 every 2 Medical (two) Branch weeks. levothyroxi 2020-09 Yes [id number] 50ug Take 1 [facility] ne 50 mcg 1-09 tablet by ity o f tablet 00:00: mouth [place] 00 every Medical morning. Branch fluticasone 2020-09 Yes [id number] 2{puff} Inhale 2 [facility] propionate 1-09 Puffs ity of (FLOVENT 00:00: every 12 [place] HFA) 110 00 (twelve) Medical mcg/actuati hours. Branch on inhaler Rinse mouth after each use. levalbutero 2020-09 Yes [id number] .63mg Inhale [facility] l 0.63 mg/3 1-09 0.63 mg 3 ity of mL 00:00: (three) [place] nebulizer 00 times Medical solution daily as Branch needed for Wheezing or Shortness of Breath. clotrimazol 2020-09 Yes [id number] Apply to [facility] e-betametha -09 area(s) 2 ity of sone cream 00:00: (two) [place] 00 times Medical daily. Branch cyclobenzap 2020-09 Yes [id number] TAKE 1 [facility] rine 5 mg -09 TABLET BY ity o f tablet 00:00: MOUTH [place] 00 EVERY 8 Medical HOURS Branch NEEDED econazole 2020-09 Yes [id number] Apply to [facility] nitrate 1 % 10-04 area(s) 2 ity of cream 00:00: (two) [place] 00 times Medical daily. Branch albuterol 2020-09 Yes [id number] 2{puff} Inhale 2 [facility] (PROAIR 1-09 Puffs ity of HFA) 90 00:00: every 6 [place] mcg/actuati 00 (six) Medical on inhaler hours as Branc h needed for Wheezing or Shortness of Breath. triamcinolo 2020-09 Yes [id number] Apply to [facility] ne 0.025 % 1-09 area(s) 3 ity of ointment 00:00: (three) [place] 00 times Medical daily. For Branch itching cyanocobala 2020-09 Yes [id number] 1000ug 1 mL by [facility] min 1,000 1-09 Intramuscu ity of mcg/mL 00:00: lar route [place] injection 00 every 2 Medical (two) Branch weeks. levothyroxi 2020-09 Yes [id number] 50ug Take 1 [facility] ne 50 mcg 1-09 tablet by ity o f tablet 00:00: mouth [place] 00 every Medical morning. Branch fluticasone 2020-09 Yes [id number] 2{puff} Inhale 2 [facility] propionate 1-09 Puffs ity of (FLOVENT 00:00: every 12 [place] HFA) 110 00 (twelve) Medical mcg/actuati hours. Branch on inhaler Rinse mouth after each use. levalbutero 2020-09 Yes [id number] .63mg Inhale [facility] l 0.63 mg/3 1-09 0.63 mg 3 ity of mL 00:00: (three) [place] nebulizer 00 times Medical solution daily as Branch needed for Wheezing or Shortness of Breath. clotrimazol 2020-09 Yes [id number] Apply to [facility] e-betametha -09 area(s) 2 ity of sone cream 00:00: (two) [place] 00 times Medical daily. Branch cyclobenzap 2020-09 Yes [id number] TAKE 1 [facility] rine 5 mg 1-09 TABLET BY ity o f tablet 00:00: MOUTH [place] 00 EVERY 8 Medical HOURS Branch NEEDED econazole 2020-09 Yes [id number] Apply to [facility] nitrate 1 % 10-04 area(s) 2 ity of cream 00:00: (two) [place] 00 times Medical daily. Branch albuterol 2020-09 Yes [id number] 2{puff} Inhale 2 [facility] (PROAIR 1-09 Puffs ity of HFA) 90 00:00: every 6 [place] mcg/actuati 00 (six) Medical on inhaler hours as Branc h needed for Wheezing or Shortness of Breath. triamcinolo 2020-09 Yes [id number] Apply to [facility] ne 0.025 % 1-09 area(s) 3 ity of ointment 00:00: (three) [place] 00 times Medical daily. For Branch itching cyanocobala 2020-09 Yes [id number] 1000ug 1 mL by [facility] min 1,000 1-09 Intramuscu ity of mcg/mL 00:00: lar route [place] injection 00 every 2 Medical (two) Branch weeks. fluticasone 2020-09 Yes [id number] 2{puff} Inhale 2 [facility] propionate 1-09 Puffs ity of (FLOVENT 00:00: every 12 [place] HFA) 110 00 (twelve) Medical mcg/actuati hours. Branch on inhaler Rinse mouth after each use. levalbutero 2020-09 Yes [id number] .63mg Inhale [facility] l 0.63 mg/3 1-09 0.63 mg 3 ity of mL 00:00: (three) [place] nebulizer 00 times Medical solution daily as Branch needed for Wheezing or Shortness of Breath. clotrimazol 2020-09 Yes [id number] Apply to [facility] e-betametha 1-09 area(s) 2 ity of sone cream 00:00: (two) [place] 00 times Medical daily. Branch cyclobenzap 2020-09 Yes [id number] TAKE 1 [facility] rine 5 mg 10-04 TABLET BY ity o f tablet 00:00: MOUTH [place] 00 EVERY 8 Medical HOURS Branch NEEDED econazole 2020-09 Yes [id number] Apply to [facility] nitrate 1 % -09 area(s) 2 ity of cream 00:00: (two) [place] 00 times Medical daily. Branch albuterol 2020-09 Yes [id number] 2{puff} Inhale 2 [facility] (PROAIR 1-09 Puffs ity of HFA) 90 00:00: every 6 [place] mcg/actuati 00 (six) Medical on inhaler hours as Branc h needed for Wheezing or Shortness of Breath. triamcinolo 2020-09 Yes [id number] Apply to [facility] ne 0.025 % 1-09 area(s) 3 ity of ointment 00:00: (three) [place] 00 times Medical daily. For Branch itching cyanocobala 2020-09 Yes [id number] 1000ug 1 mL by [facility] min 1,000 1-09 Intramuscu ity of mcg/mL 00:00: lar route [place] injection 00 every 2 Medical (two) Branch weeks. fluticasone 2020-09 Yes [id number] 2{puff} Inhale 2 [facility] propionate 1-09 Puffs ity of (FLOVENT 00:00: every 12 [place] HFA) 110 00 (twelve) Medical mcg/actuati hours. Branch on inhaler Rinse mouth after each use. levalbutero 2020-09 Yes [id number] .63mg Inhale [facility] l 0.63 mg/3 1-09 0.63 mg 3 ity of mL 00:00: (three) [place] nebulizer 00 times Medical solution daily as Branch needed for Wheezing or Shortness of Breath. clotrimazol 2020-09 Yes [id number] Apply to [facility] e-betametha 10-04 area(s) 2 ity of sone cream 00:00: (two) [place] 00 times Medical daily. Branch cyclobenzap 2020-09 Yes [id number] TAKE 1 [facility] rine 5 mg 09 TABLET BY ity o f tablet 00:00: MOUTH [place] 00 EVERY 8 Medical HOURS Branch NEEDED econazole 2020-09 Yes [id number] Apply to [facility] nitrate 1 % 10-04 area(s) 2 ity of cream 00:00: (two) [place] 00 times Medical daily. Branch albuterol 2020-09 Yes [id number] 2{puff} Inhale 2 [facility] (PROAIR -09 Puffs ity of HFA) 90 00:00: every 6 [place] mcg/actuati 00 (six) Medical on inhaler hours as Branc h needed for Wheezing or Shortness of Breath. triamcinolo 2020-09 Yes [id number] Apply to [facility] ne 0.025 % 10-04 area(s) 3 ity of ointment 00:00: (three) [place] 00 times Medical daily. For Branch itching cyanocobala 2020-09 Yes [id number] 1000ug 1 mL by [facility] min 1,000 -09 Intramuscu ity of mcg/mL 00:00: lar route [place] injection 00 every 2 Medical (two) Branch weeks. levalbutero 2020-09 Yes [id number] .63mg Inhale [facility] l 0.63 mg/3 -09 0.63 mg 3 ity of mL 00:00: (three) [place] nebulizer 00 times Medical solution daily as Branch needed for Wheezing or Shortness of Breath. cyclobenzap 2020-09 Yes [id number] TAKE 1 [facility] rine 5 mg -09 TABLET BY ity o f tablet 00:00: MOUTH [place] 00 EVERY 8 Medical HOURS Branch NEEDED albuterol 2020-09 Yes [id number] 2{puff} Inhale 2 [facility] (PROAIR 1-09 Puffs ity of HFA) 90 00:00: every 6 [place] mcg/actuati 00 (six) Medical on inhaler hours as Branc h needed for Wheezing or Shortness of Breath. cyanocobala 2020-09 Yes [id number] 1000ug 1 mL by [facility] min 1,000 1-09 Intramuscu ity of mcg/mL 00:00: lar route [place] injection 00 every 2 Medical (two) Branch weeks. levalbutero 2020-09 Yes [id number] .63mg Inhale [facility] l 0.63 mg/3 1-09 0.63 mg 3 ity of mL 00:00: (three) [place] nebulizer 00 times Medical solution daily as Branch needed for Wheezing or Shortness of Breath. cyclobenzap 2020-09 Yes [id number] TAKE 1 [facility] rine 5 mg 1-09 TABLET BY ity o f tablet 00:00: MOUTH [place] 00 EVERY 8 Medical HOURS Branch NEEDED albuterol 2020-09 Yes [id number] 2{puff} Inhale 2 [facility] (PROAIR 1-09 Puffs ity of HFA) 90 00:00: every 6 [place] mcg/actuati 00 (six) Medical on inhaler hours as Branc h needed for Wheezing or Shortness of Breath. cyanocobala 2020-09 Yes [id number] 1000ug 1 mL by [facility] min 1,000 1-09 Intramuscu ity of mcg/mL 00:00: lar route [place] injection 00 every 2 Medical (two) Branch weeks. levalbutero 2020-09 Yes [id number] .63mg Inhale [facility] l 0.63 mg/3 1-09 0.63 mg 3 ity of mL 00:00: (three) [place] nebulizer 00 times Medical solution daily as Branch needed for Wheezing or Shortness of Breath. cyclobenzap 2020-09 Yes [id number] TAKE 1 [facility] rine 5 mg 1-09 TABLET BY ity o f tablet 00:00: MOUTH [place] 00 EVERY 8 Medical HOURS Branch NEEDED albuterol 2020-09 Yes [id number] 2{puff} Inhale 2 [facility] (PROAIR 1-09 Puffs ity of HFA) 90 00:00: every 6 [place] mcg/actuati 00 (six) Medical on inhaler hours as Branc h needed for Wheezing or Shortness of Breath. cyanocobala 2020-09 Yes [id number] 1000ug 1 mL by [facility] min 1,000 1-09 Intramuscu ity of mcg/mL 00:00: lar route [place] injection 00 every 2 Medical (two) Branch weeks. levalbutero 2020-09 Yes [id number] .63mg Inhale [facility] l 0.63 mg/3 1-09 0.63 mg 3 ity of mL 00:00: (three) [place] nebulizer 00 times Medical solution daily as Branch needed for Wheezing or Shortness of Breath. cyclobenzap 2020-09 Yes [id number] TAKE 1 [facility] rine 5 mg 1-09 TABLET BY ity o f tablet 00:00: MOUTH [place] 00 EVERY 8 Medical HOURS Branch NEEDED albuterol 2020-09 Yes [id number] 2{puff} Inhale 2 [facility] (PROAIR 1-09 Puffs ity of HFA) 90 00:00: every 6 [place] mcg/actuati 00 (six) Medical on inhaler hours as Branc h needed for Wheezing or Shortness of Breath. cyanocobala 2020-09 Yes [id number] 1000ug 1 mL by [facility] min 1,000 1-09 Intramuscu ity of mcg/mL 00:00: lar route [place] injection 00 every 2 Medical (two) Branch weeks. levalbutero 2020-09 Yes [id number] .63mg Inhale [facility] l 0.63 mg/3 1-09 0.63 mg 3 ity of mL 00:00: (three) [place] nebulizer 00 times Medical solution daily as Branch needed for Wheezing or Shortness of Breath. cyclobenzap 2020-09 Yes [id number] TAKE 1 [facility] rine 5 mg 1-09 TABLET BY ity o f tablet 00:00: MOUTH [place] 00 EVERY 8 Medical HOURS Branch NEEDED albuterol 2020-09 Yes [id number] 2{puff} Inhale 2 [facility] (PROAIR 1-09 Puffs ity of HFA) 90 00:00: every 6 [place] mcg/actuati 00 (six) Medical on inhaler hours as Branc h needed for Wheezing or Shortness of Breath. cyanocobala 2020-09 Yes [id number] 1000ug 1 mL by [facility] min 1,000 1-09 Intramuscu ity of mcg/mL 00:00: lar route [place] injection 00 every 2 Medical (two) Branch weeks. levalbutero 2020-09 Yes [id number] .63mg Inhale [facility] l 0.63 mg/3 1-09 0.63 mg 3 ity of mL 00:00: (three) [place] nebulizer 00 times Medical solution daily as Branch needed for Wheezing or Shortness of Breath. cyclobenzap 2020-09 Yes [id number] TAKE 1 [facility] rine 5 mg 1-09 TABLET BY ity o f tablet 00:00: MOUTH [place] 00 EVERY 8 Medical HOURS Branch NEEDED albuterol 2020-09 Yes [id number] 2{puff} Inhale 2 [facility] (PROAIR 1-09 Puffs ity of HFA) 90 00:00: every 6 [place] mcg/actuati 00 (six) Medical on inhaler hours as Branc h needed for Wheezing or Shortness of Breath. cyanocobala 2020-09 Yes [id number] 1000ug 1 mL by [facility] min 1,000 1-09 Intramuscu ity of mcg/mL 00:00: lar route [place] injection 00 every 2 Medical (two) Branch weeks. levalbutero 2020-09 Yes [id number] .63mg Inhale [facility] l 0.63 mg/3 1-09 0.63 mg 3 ity of mL 00:00: (three) [place] nebulizer 00 times Medical solution daily as Branch needed for Wheezing or Shortness of Breath. cyclobenzap 2020-09 Yes [id number] TAKE 1 [facility] rine 5 mg 1-09 TABLET BY ity o f tablet 00:00: MOUTH [place] 00 EVERY 8 Medical HOURS Branch NEEDED albuterol 2020-09 Yes [id number] 2{puff} Inhale 2 [facility] (PROAIR 1-09 Puffs ity of HFA) 90 00:00: every 6 [place] mcg/actuati 00 (six) Medical on inhaler hours as Branc h needed for Wheezing or Shortness of Breath. cyanocobala 2020-09 Yes [id number] 1000ug 1 mL by [facility] min 1,000 1-09 Intramuscu ity of mcg/mL 00:00: lar route [place] injection 00 every 2 Medical (two) Branch weeks. levalbutero 2020-09 Yes [id number] .63mg Inhale [facility] l 0.63 mg/3 1-09 0.63 mg 3 ity of mL 00:00: (three) [place] nebulizer 00 times Medical solution daily as Branch needed for Wheezing or Shortness of Breath. cyclobenzap 2020-09 Yes [id number] TAKE 1 [facility] rine 5 mg 1-09 TABLET BY ity o f tablet 00:00: MOUTH [place] 00 EVERY 8 Medical HOURS Branch NEEDED albuterol 2020-09 Yes [id number] 2{puff} Inhale 2 [facility] (PROAIR 1-09 Puffs ity of HFA) 90 00:00: every 6 [place] mcg/actuati 00 (six) Medical on inhaler hours as Branc h needed for Wheezing or Shortness of Breath. cyanocobala 2020-09 Yes [id number] 1000ug 1 mL by [facility] min 1,000 1-09 Intramuscu ity of mcg/mL 00:00: lar route [place] injection 00 every 2 Medical (two) Branch weeks. levalbutero 2020-09 Yes [id number] .63mg Inhale [facility] l 0.63 mg/3 1-09 0.63 mg 3 ity of mL 00:00: (three) [place] nebulizer 00 times Medical solution daily as Branch needed for Wheezing or Shortness of Breath. cyclobenzap 2020-09 Yes [id number] TAKE 1 [facility] rine 5 mg 1-09 TABLET BY ity o f tablet 00:00: MOUTH [place] 00 EVERY 8 Medical HOURS Branch NEEDED albuterol 2020-09 Yes [id number] 2{puff} Inhale 2 [facility] (PROAIR 1-09 Puffs ity of HFA) 90 00:00: every 6 [place] mcg/actuati 00 (six) Medical on inhaler hours as Branc h needed for Wheezing or Shortness of Breath. levalbutero 2020-09 Yes [id number] .63mg Inhale [facility] l 0.63 mg/3 1-09 0.63 mg 3 ity of mL 00:00: (three) [place] nebulizer 00 times Medical solution daily as Branch needed for Wheezing or Shortness of Breath. cyclobenzap 2020-09 Yes [id number] TAKE 1 [facility] rine 5 mg 1-09 TABLET BY it[facility] o f tablet 00:00: MOUTH [place] 00 EVERY 8 Medical HOURS Branch NEEDED albuterol 2020-09 Yes [id number] 2{puff} Inhale 2 [facility] (PROAIR 1-09 Puffs ity of HFA) 90 00:00: every 6 [place] mcg/actuati 00 (six) Medical on inhaler hours as Branc h needed for Wheezing or Shortness of Breath. levalbutero 2020-09 Yes [id number] .63mg Inhale [facility] l 0.63 mg/3 1-09 0.63 mg 3 ity of mL 00:00: (three) [place] nebulizer 00 times Medical solution daily as Branch needed for Wheezing or Shortness of Breath. cyclobenzap 2020-09 Yes [id number] TAKE 1 [facility] rine 5 mg 1-09 TABLET BY it[facility] o f tablet 00:00: MOUTH [place] 00 EVERY 8 Medical HOURS Branch NEEDED albuterol 2020-09 Yes [id number] 2{puff} Inhale 2 [facility] (PROAIR 1-09 Puffs ity of HFA) 90 00:00: every 6 [place] mcg/actuati 00 (six) Medical on inhaler hours as Branc h needed for Wheezing or Shortness of Breath. levalbutero 2020-09 Yes [id number] .63mg Inhale [facility] l 0.63 mg/3 1-09 0.63 mg 3 ity of mL 00:00: (three) [place] nebulizer 00 times Medical solution daily as Branch needed for Wheezing or Shortness of Breath. cyclobenzap 2020-09 Yes [id number] TAKE 1 [facility] rine 5 mg 1-09 TABLET BY [facility] o f tablet 00:00: MOUTH [place] 00 EVERY 8 Medical HOURS Branch NEEDED albuterol 2020-09 Yes [id number] 2{puff} Inhale 2 [facility] (PROAIR 1-09 Puffs ity of HFA) 90 00:00: every 6 [place] mcg/actuati 00 (six) Medical on inhaler hours as Branc h needed for Wheezing or Shortness of Breath. levalbutero 2020-09 Yes [id number] .63mg Inhale [facility] l 0.63 mg/3 1-09 0.63 mg 3 ity of mL 00:00: (three) [place] nebulizer 00 times Medical solution daily as Branch needed for Wheezing or Shortness of Breath. cyclobenzap 2020-09 Yes [id number] TAKE 1 [facility] rine 5 mg 1-09 TABLET BY it[facility] o f tablet 00:00: MOUTH [place] 00 EVERY 8 Medical HOURS Branch NEEDED albuterol 2020-09 Yes [id number] 2{puff} Inhale 2 [facility] (PROAIR 1-09 Puffs ity of HFA) 90 00:00: every 6 [place] mcg/actuati 00 (six) Medical on inhaler hours as Branc h needed for Wheezing or Shortness of Breath. levalbutero 2020-09 Yes [id number] .63mg Inhale [facility] l 0.63 mg/3 1-09 0.63 mg 3 ity of mL 00:00: (three) [place] nebulizer 00 times Medical solution daily as Branch needed for Wheezing or Shortness of Breath. cyclobenzap 2020-09 Yes [id number] TAKE 1 [facility] rine 5 mg 1-09 TABLET BY ity o f tablet 00:00: MOUTH [place] 00 EVERY 8 Medical HOURS Branch NEEDED albuterol 2020-09 Yes [id number] 2{puff} Inhale 2 [facility] (PROAIR 1-09 Puffs ity of HFA) 90 00:00: every 6 [place] mcg/actuati 00 (six) Medical on inhaler hours as Branc h needed for Wheezing or Shortness of Breath. levalbutero 2020-09 Yes [id number] .63mg Inhale [facility] l 0.63 mg/3 1-09 0.63 mg 3 ity of mL 00:00: (three) [place] nebulizer 00 times Medical solution daily as Branch needed for Wheezing or Shortness of Breath. cyclobenzap 2020-09 Yes [id number] TAKE 1 [facility] rine 5 mg 1-09 TABLET BY ity o f tablet 00:00: MOUTH [place] 00 EVERY 8 Medical HOURS Branch NEEDED albuterol 2020-09 Yes [id number] 2{puff} Inhale 2 [facility] (PROAIR 1-09 Puffs ity of HFA) 90 00:00: every 6 [place] mcg/actuati 00 (six) Medical on inhaler hours as Branc h needed for Wheezing or Shortness of Breath. levalbutero 2020-09 Yes [id number] .63mg Inhale [facility] l 0.63 mg/3 1-09 0.63 mg 3 ity of mL 00:00: (three) [place] nebulizer 00 times Medical solution daily as Branch needed for Wheezing or Shortness of Breath. cyclobenzap 2020-09 Yes [id number] TAKE 1 [facility] rine 5 mg 1-09 TABLET BY ity o f tablet 00:00: MOUTH [place] 00 EVERY 8 Medical HOURS Branch NEEDED albuterol 2020-09 Yes [id number] 2{puff} Inhale 2 [facility] (PROAIR 1-09 Puffs ity of HFA) 90 00:00: every 6 [place] mcg/actuati 00 (six) Medical on inhaler hours as Branc h needed for Wheezing or Shortness of Breath. levalbutero 2020-09 Yes [id number] .63mg Inhale [facility] l 0.63 mg/3 1-09 0.63 mg 3 ity of mL 00:00: (three) [place] nebulizer 00 times Medical solution daily as Branch needed for Wheezing or Shortness of Breath. cyclobenzap 2020-09 Yes [id number] TAKE 1 [facility] rine 5 mg 1-09 TABLET BY ity o f tablet 00:00: MOUTH [place] 00 EVERY 8 Medical HOURS Branch NEEDED albuterol 2020-09 Yes [id number] 2{puff} Inhale 2 [facility] (PROAIR 1-09 Puffs ity of HFA) 90 00:00: every 6 [place] mcg/actuati 00 (six) Medical on inhaler hours as Branc h needed for Wheezing or Shortness of Breath. levalbutero 2020-09 Yes [id number] .63mg Inhale [facility] l 0.63 mg/3 1-09 0.63 mg 3 ity of mL 00:00: (three) [place] nebulizer 00 times Medical solution daily as Branch needed for Wheezing or Shortness of Breath. cyclobenzap 2020-09 Yes [id number] TAKE 1 [facility] rine 5 mg 1-09 TABLET BY ity o f tablet 00:00: MOUTH [place] 00 EVERY 8 Medical HOURS Branch NEEDED albuterol 2020-09 Yes [id number] 2{puff} Inhale 2 [facility] (PROAIR 1-09 Puffs ity of HFA) 90 00:00: every 6 [place] mcg/actuati 00 (six) Medical on inhaler hours as Branc h needed for Wheezing or Shortness of Breath. levalbutero 2020-09 Yes [id number] .63mg Inhale [facility] l 0.63 mg/3 1-09 0.63 mg 3 ity of mL 00:00: (three) [place] nebulizer 00 times Medical solution daily as Branch needed for Wheezing or Shortness of Breath. cyclobenzap 2020-09 Yes [id number] TAKE 1 [facility] rine 5 mg 1-09 TABLET BY ity o f tablet 00:00: MOUTH [place] 00 EVERY 8 Medical HOURS Branch NEEDED albuterol 2020-09 Yes [id number] 2{puff} Inhale 2 [facility] (PROAIR 1-09 Puffs ity of HFA) 90 00:00: every 6 [place] mcg/actuati 00 (six) Medical on inhaler hours as Branc h needed for Wheezing or Shortness of Breath. rosuvastati 2020-09 Yes [id number] 10mg Take 1 [facility] n 10 mg 1-09 tablet by ity of tablet 00:00: mouth at [place] 00 bedtime. Medical Branch cyanocobala 2020-09 Yes [id number] 1000ug 1 mL by [facility] min 1,000 1-09 Intramuscu ity of mcg/mL 00:00: lar route [place] injection 00 every 2 Medical (two) Branch weeks. levothyroxi 2020-09 Yes [id number] 50ug Take 1 [facility] ne 50 mcg 1-09 tablet by ity o f tablet 00:00: mouth [place] 00 every Medical morning. Branch fluticasone 2020-09 Yes [id number] 2{puff} Inhale 2 [facility] propionate 1-09 Puffs ity of (FLOVENT 00:00: every 12 [place] HFA) 110 00 (twelve) Medical mcg/actuati hours. Branch on inhaler Rinse mouth after each use. levalbutero 2020-09 Yes [id number] .63mg Inhale [facility] l 0.63 mg/3 1-09 0.63 mg 3 ity of mL 00:00: (three) [place] nebulizer 00 times Medical solution daily as Branch needed for Wheezing or Shortness of Breath. losartan 50 2020-09 Yes [id number] 50mg Take 1 [facility] mg tablet 1-09 tablet by ity o f 00:00: mouth 2 [place] 00 (two) Medical times Branch daily. clotrimazol 2020-09 Yes [id number] Apply to [facility] e-betametha - area(s) 2 ity of sone cream 00:00: (two) [place] 00 times Medical daily. Branch cyclobenzap 2020-09 Yes [id number] TAKE 1 [facility] rine 5 mg 1-09 TABLET BY ity o f tablet 00:00: MOUTH [place] 00 EVERY 8 Medical HOURS Branch NEEDED econazole 2020-09 Yes [id number] Apply to [facility] nitrate 1 % 09 area(s) 2 ity of cream 00:00: (two) [place] 00 times Medical daily. Branch albuterol 2020-09 Yes [id number] 2{puff} Inhale 2 [facility] (PROAIR 1-09 Puffs ity of HFA) 90 00:00: every 6 [place] mcg/actuati 00 (six) Medical on inhaler hours as Branc h needed for Wheezing or Shortness of Breath. triamcinolo 2020-09 Yes [id number] Apply to [facility] ne 0.025 % 10-04 area(s) 3 ity of ointment 00:00: (three) [place] 00 times Medical daily. For Branch itching diltiazem 2020-09 Yes [id number] 120mg Take 1 [facility] (CARTIA XT) 09 capsule by it y of 120 mg 24 00:00: mouth 2 [place] hr capsule 00 (two) Medical times Branch daily. rosuvastati 2020-09 Yes [id number] 10mg Take 1 [facility] n 10 mg -09 tablet by ity of tablet 00:00: mouth at [place] 00 bedtime. Medical Branch cyanocobala 2020-09 Yes [id number] 1000ug 1 mL by [facility] min 1,000 -09 Intramuscu ity of mcg/mL 00:00: lar route [place] injection 00 every 2 Medical (two) Branch weeks. levothyroxi 2020-09 Yes [id number] 50ug Take 1 [facility] ne 50 mcg 1-09 tablet by ity o f tablet 00:00: mouth [place] 00 every Medical morning. Branch fluticasone 2020-09 Yes [id number] 2{puff} Inhale 2 [facility] propionate 1-09 Puffs ity of (FLOVENT 00:00: every 12 [place] HFA) 110 00 (twelve) Medical mcg/actuati hours. Branch on inhaler Rinse mouth after each use. levalbutero 2020-09 Yes [id number] .63mg Inhale [facility] l 0.63 mg/3 -09 0.63 mg 3 ity of mL 00:00: (three) [place] nebulizer 00 times Medical solution daily as Branch needed for Wheezing or Shortness of Breath. losartan 50 2020-09 Yes [id number] 50mg Take 1 [facility] mg tablet -09 tablet by ity o f 00:00: mouth 2 [place] 00 (two) Medical times Branch daily. clotrimazol 2020-09 Yes [id number] Apply to [facility] e-betametha 10-04 area(s) 2 ity of sone cream 00:00: (two) [place] 00 times Medical daily. Branch cyclobenzap 2020-09 Yes [id number] TAKE 1 [facility] rine 5 mg 10-04 TABLET BY ity o f tablet 00:00: MOUTH [place] 00 EVERY 8 Medical HOURS Branch NEEDED econazole 2020-09 Yes [id number] Apply to [facility] nitrate 1 % 10-04 area(s) 2 ity of cream 00:00: (two) [place] 00 times Medical daily. Branch albuterol 2020-09 Yes [id number] 2{puff} Inhale 2 [facility] (PROAIR - Puffs ity of HFA) 90 00:00: every 6 [place] mcg/actuati 00 (six) Medical on inhaler hours as Branc h needed for Wheezing or Shortness of Breath. triamcinolo 2020-09 Yes [id number] Apply to [facility] ne 0.025 % 10-04 area(s) 3 ity of ointment 00:00: (three) [place] 00 times Medical daily. For Branch itching diltiazem 2020-09 Yes [id number] 120mg Take 1 [facility] (CARTIA XT) 10-04 capsule by it y of 120 mg 24 00:00: mouth 2 [place] hr capsule 00 (two) Medical times Branch daily. cyanocobala 2020-09 Yes [id number] 1000ug 1 mL by [facility] min 1,000 -09 Intramuscu ity of mcg/mL 00:00: lar route [place] injection 00 every 2 Medical (two) Branch weeks. levothyroxi 2020-09 Yes [id number] 50ug Take 1 [facility] ne 50 mcg -09 tablet by ity o f tablet 00:00: mouth [place] 00 every Medical morning. Branch fluticasone 2020-09 Yes [id number] 2{puff} Inhale 2 [facility] propionate 1-09 Puffs ity of (FLOVENT 00:00: every 12 [place] HFA) 110 00 (twelve) Medical mcg/actuati hours. Branch on inhaler Rinse mouth after each use. levalbutero 2020-09 Yes [id number] .63mg Inhale [facility] l 0.63 mg/3 1-09 0.63 mg 3 ity of mL 00:00: (three) [place] nebulizer 00 times Medical solution daily as Branch needed for Wheezing or Shortness of Breath. losartan 50 2020-09 Yes [id number] 50mg Take 1 [facility] mg tablet -09 tablet by ity o f 00:00: mouth 2 [place] 00 (two) Medical times Branch daily. clotrimazol 2020-09 Yes [id number] Apply to [facility] e-betametha -09 area(s) 2 ity of sone cream 00:00: (two) [place] 00 times Medical daily. Branch cyclobenzap 2020-09 Yes [id number] TAKE 1 [facility] rine 5 mg -09 TABLET BY ity o f tablet 00:00: MOUTH [place] 00 EVERY 8 Medical HOURS Branch NEEDED econazole 2020-09 Yes [id number] Apply to [facility] nitrate 1 % 09 area(s) 2 ity of cream 00:00: (two) [place] 00 times Medical daily. Branch albuterol 2020-09 Yes [id number] 2{puff} Inhale 2 [facility] (PROAIR 1-09 Puffs ity of HFA) 90 00:00: every 6 [place] mcg/actuati 00 (six) Medical on inhaler hours as Branc h needed for Wheezing or Shortness of Breath. triamcinolo 2020-09 Yes [id number] Apply to [facility] ne 0.025 % -09 area(s) 3 ity of ointment 00:00: (three) [place] 00 times Medical daily. For Branch itching diltiazem 2020-09 Yes [id number] 120mg Take 1 [facility] n[facility] (CARTIA XT) -09 capsule by it y of 120 mg 24 00:00: mouth 2 [place] hr capsule 00 (two) Medical times Branch daily. cyanocobala 2020-09 Yes [id number] 1000ug 1 mL by [facility] min 1,000 -09 Intramuscu ity of mcg/mL 00:00: lar route [place] injection 00 every 2 Medical (two) Branch weeks. levothyroxi 2020-09 Yes [id number] 50ug Take 1 [facility] ne 50 mcg 1-09 tablet by ity o f tablet 00:00: mouth [place] 00 every Medical morning. Branch fluticasone 2020-09 Yes [id number] 2{puff} Inhale 2 [facility] propionate 1-09 Puffs ity of (FLOVENT 00:00: every 12 [place] HFA) 110 00 (twelve) Medical mcg/actuati hours. Branch on inhaler Rinse mouth after each use. levalbutero 2020-09 Yes [id number] .63mg Inhale [facility] l 0.63 mg/3 1-09 0.63 mg 3 ity of mL 00:00: (three) [place] nebulizer 00 times Medical solution daily as Branch needed for Wheezing or Shortness of Breath. losartan 50 2020-09 Yes [id number] 50mg Take 1 [facility] mg tablet 1-09 tablet by ity o f 00:00: mouth 2 [place] 00 (two) Medical times Branch daily. clotrimazol 2020-09 Yes [id number] Apply to [facility] e-betametha -09 area(s) 2 ity of sone cream 00:00: (two) [place] 00 times Medical daily. Branch cyclobenzap 2020-09 Yes [id number] TAKE 1 [facility] rine 5 mg 1-09 TABLET BY ity o f tablet 00:00: MOUTH [place] 00 EVERY 8 Medical HOURS Branch NEEDED econazole 2020-09 Yes [id number] Apply to [facility] nitrate 1 % -09 area(s) 2 ity of cream 00:00: (two) [place] 00 times Medical daily. Branch albuterol 2020-09 Yes [id number] 2{puff} Inhale 2 [facility] (PROAIR 1-09 Puffs ity of HFA) 90 00:00: every 6 [place] mcg/actuati 00 (six) Medical on inhaler hours as Branc h needed for Wheezing or Shortness of Breath. triamcinolo 2020-09 Yes [id number] Apply to [facility] ne 0.025 % 1-09 area(s) 3 ity of ointment 00:00: (three) [place] 00 times Medical daily. For Branch itching diltiazem 2020-09 Yes [id number] 120mg Take 1 [facility] (CARTIA XT) 1-09 capsule by it y of 120 mg 24 00:00: mouth 2 [place] hr capsule 00 (two) Medical times Branch daily. cyanocobala 2020-09 Yes [id number] 1000ug 1 mL by [facility] min 1,000 1-09 Intramuscu ity of mcg/mL 00:00: lar route [place] injection 00 every 2 Medical (two) Branch weeks. levothyroxi 2020-09 Yes [id number] 50ug Take 1 [facility] ne 50 mcg 1-09 tablet by ity o f tablet 00:00: mouth [place] 00 every Medical morning. Branch fluticasone 2020-09 Yes [id number] 2{puff} Inhale 2 [facility] propionate 1-09 Puffs ity of (FLOVENT 00:00: every 12 [place] HFA) 110 00 (twelve) Medical mcg/actuati hours. Branch on inhaler Rinse mouth after each use. levalbutero 2020-09 Yes [id number] .63mg Inhale [facility] l 0.63 mg/3 1-09 0.63 mg 3 ity of mL 00:00: (three) [place] nebulizer 00 times Medical solution daily as Branch needed for Wheezing or Shortness of Breath. losartan 50 2020-09 Yes [id number] 50mg Take 1 [facility] mg tablet -09 tablet by ity o f 00:00: mouth 2 [place] 00 (two) Medical times Branch daily. clotrimazol 2020-09 Yes [id number] Apply to [facility] e-betametha 10-04 area(s) 2 ity of sone cream 00:00: (two) [place] 00 times Medical daily. Branch cyclobenzap 2020-09 Yes [id number] TAKE 1 [facility] rine 5 mg -09 TABLET BY ity o f tablet 00:00: MOUTH [place] 00 EVERY 8 Medical HOURS Branch NEEDED econazole 2020-09 Yes [id number] Apply to [facility] nitrate 1 % 09 area(s) 2 ity of cream 00:00: (two) [place] 00 times Medical daily. Branch albuterol 2020-09 Yes [id number] 2{puff} Inhale 2 [facility] (PROAIR 1-09 Puffs ity of HFA) 90 00:00: every 6 [place] mcg/actuati 00 (six) Medical on inhaler hours as [facility] h needed for Wheezing or Shortness of Breath. triamcinolo 2020-09 Yes [id number] Apply to [facility] ne 0.025 % -09 area(s) 3 ity of ointment 00:00: (three) [place] 00 times Medical daily. For Branch itching diltiazem 2020-09 Yes [id number] 120mg Take 1 [facility] n[facility] (CARTIA XT) -09 capsule by it y of 120 mg 24 00:00: mouth 2 [place] hr capsule 00 (two) Medical times Branch daily. cyanocobala 2020-09 Yes [id number] 1000ug 1 mL by [facility] min 1,000 -09 Intramuscu ity of mcg/mL 00:00: lar route [place] injection 00 every 2 Medical (two) Branch weeks. levothyroxi 2020-09 Yes [id number] 50ug Take 1 [facility] ne 50 mcg -09 tablet by ity o f tablet 00:00: mouth [place] 00 every Medical morning. Branch fluticasone 2020-09 Yes [id number] 2{puff} Inhale 2 [facility] propionate -09 Puffs ity of (FLOVENT 00:00: every 12 [place] HFA) 110 00 (twelve) Medical mcg/actuati hours. Branch on inhaler Rinse mouth after each use. levalbutero 2020-09 Yes [id number] .63mg Inhale [facility] l 0.63 mg/3 -09 0.63 mg 3 ity of mL 00:00: (three) [place] nebulizer 00 times Medical solution daily as Branch needed for Wheezing or Shortness of Breath. losartan 50 2020-09 Yes [id number] 50mg Take 1 [facility] mg tablet -09 tablet by ity o f 00:00: mouth 2 [place] 00 (two) Medical times Branch daily. clotrimazol 2020-09 Yes [id number] Apply to [facility] e-betametha -09 area(s) 2 ity of sone cream 00:00: (two) [place] 00 times Medical daily. Branch cyclobenzap 2020-09 Yes [id number] TAKE 1 [facility] rine 5 mg 1-09 TABLET BY ity o f tablet 00:00: MOUTH [place] 00 EVERY 8 Medical HOURS Branch NEEDED econazole 2020-09 Yes [id number] Apply to [facility] nitrate 1 % 1-09 area(s) 2 ity of cream 00:00: (two) [place] 00 times Medical daily. Branch albuterol 2020-09 Yes [id number] 2{puff} Inhale 2 [facility] (PROAIR 1-09 Puffs ity of HFA) 90 00:00: every 6 [place] mcg/actuati 00 (six) Medical on inhaler hours as Branc h needed for Wheezing or Shortness of Breath. triamcinolo 2020-09 Yes [id number] Apply to [facility] ne 0.025 % -09 area(s) 3 ity of ointment 00:00: (three) [place] 00 times Medical daily. For Branch itching diltiazem 2020-09 Yes [id number] 120mg Take 1 [facility] n[facility] (CARTIA XT) -09 capsule by it y of 120 mg 24 00:00: mouth 2 [place] hr capsule 00 (two) Medical times Branch daily. cyanocobala 2020-09 Yes [id number] 1000ug 1 mL by [facility] min 1,000 1-09 Intramuscu ity of mcg/mL 00:00: lar route [place] injection 00 every 2 Medical (two) Branch weeks. levothyroxi 2020-09 Yes [id number] 50ug Take 1 [facility] ne 50 mcg 1-09 tablet by ity o f tablet 00:00: mouth [place] 00 every Medical morning. Branch fluticasone 2020-09 Yes [id number] 2{puff} Inhale 2 [facility] propionate 1-09 Puffs ity of (FLOVENT 00:00: every 12 [place] HFA) 110 00 (twelve) Medical mcg/actuati hours. Branch on inhaler Rinse mouth after each use. levalbutero 2020-09 Yes [id number] .63mg Inhale [facility] l 0.63 mg/3 1-09 0.63 mg 3 ity of mL 00:00: (three) [place] nebulizer 00 times Medical solution daily as Branch needed for Wheezing or Shortness of Breath. losartan 50 2020-09 Yes [id number] 50mg Take 1 [facility] mg tablet 1-09 tablet by ity o f 00:00: mouth 2 [place] 00 (two) Medical times Branch daily. clotrimazol 2020-09 Yes [id number] Apply to [facility] e-betametha -09 area(s) 2 ity of sone cream 00:00: (two) [place] 00 times Medical daily. Branch cyclobenzap 2020-09 Yes [id number] TAKE 1 [facility] rine 5 mg 1-09 TABLET BY ity o f tablet 00:00: MOUTH [place] 00 EVERY 8 Medical HOURS Branch NEEDED econazole 2020-09 Yes [id number] Apply to [facility] nitrate 1 % 1-09 area(s) 2 ity of cream 00:00: (two) [place] 00 times Medical daily. Branch albuterol 2020-09 Yes [id number] 2{puff} Inhale 2 [facility] (PROAIR 1-09 Puffs ity of HFA) 90 00:00: every 6 [place] mcg/actuati 00 (six) Medical on inhaler hours as Branc h needed for Wheezing or Shortness of Breath. triamcinolo 2020-09 Yes [id number] Apply to [facility] ne 0.025 % 1-09 area(s) 3 ity of ointment 00:00: (three) [place] 00 times Medical daily. For Branch itching diltiazem 2020-09 Yes [id number] 120mg Take 1 [facility] nivers (CARTIA XT) 1-09 capsule by it y of 120 mg 24 00:00: mouth 2 [place] hr capsule 00 (two) Medical times Branch daily. cyanocobala 2020-09 Yes [id number] 1000ug 1 mL by [facility] min 1,000 1-09 Intramuscu ity of mcg/mL 00:00: lar route [place] injection 00 every 2 Medical (two) Branch weeks. levothyroxi 2020-09 Yes [id number] 50ug Take 1 [facility] ne 50 mcg 1-09 tablet by ity o f tablet 00:00: mouth [place] 00 every Medical morning. Branch fluticasone 2020-09 Yes [id number] 2{puff} Inhale 2 [facility] propionate 1-09 Puffs ity of (FLOVENT 00:00: every 12 [place] HFA) 110 00 (twelve) Medical mcg/actuati hours. Branch on inhaler Rinse mouth after each use. levalbutero 2020-09 Yes [id number] .63mg Inhale [facility] l 0.63 mg/3 1-09 0.63 mg 3 ity of mL 00:00: (three) [place] nebulizer 00 times Medical solution daily as Branch needed for Wheezing or Shortness of Breath. losartan 50 2020-09 Yes [id number] 50mg Take 1 [facility] mg tablet 1-09 tablet by ity o f 00:00: mouth 2 [place] 00 (two) Medical times Branch daily. clotrimazol 2020-09 Yes [id number] Apply to [facility] e-betametha -09 area(s) 2 ity of sone cream 00:00: (two) [place] 00 times Medical daily. Branch cyclobenzap 2020-09 Yes [id number] TAKE 1 [facility] rine 5 mg -09 TABLET BY ity o f tablet 00:00: MOUTH [place] 00 EVERY 8 Medical HOURS Branch NEEDED econazole 2020-09 Yes [id number] Apply to [facility] nitrate 1 % 10-04 area(s) 2 ity of cream 00:00: (two) [place] 00 times Medical daily. Branch albuterol 2020-09 Yes [id number] 2{puff} Inhale 2 [facility] (PROAIR 1-09 Puffs ity of HFA) 90 00:00: every 6 [place] mcg/actuati 00 (six) Medical on inhaler hours as Branc h needed for Wheezing or Shortness of Breath. triamcinolo 2020-09 Yes [id number] Apply to [facility] ne 0.025 % 10-04 area(s) 3 ity of ointment 00:00: (three) [place] 00 times Medical daily. For Branch itching diltiazem 2020-09 Yes [id number] 120mg Take 1 [facility] nivers (CARTIA XT) 09 capsule by it y of 120 mg 24 00:00: mouth 2 [place] hr capsule 00 (two) Medical times Branch daily. cyanocobala 2020-09 Yes [id number] 1000ug 1 mL by [facility] min 1,000 1-09 Intramuscu ity of mcg/mL 00:00: lar route [place] injection 00 every 2 Medical (two) Branch weeks. levothyroxi 2020-09 Yes [id number] 50ug Take 1 [facility] ne 50 mcg -09 tablet by ity o f tablet 00:00: mouth [place] 00 every Medical morning. Branch fluticasone 2020-09 Yes [id number] 2{puff} Inhale 2 [facility] propionate 1-09 Puffs ity of (FLOVENT 00:00: every 12 [place] HFA) 110 00 (twelve) Medical mcg/actuati hours. Branch on inhaler Rinse mouth after each use. levalbutero 2020-09 Yes [id number] .63mg Inhale [facility] l 0.63 mg/3 1-09 0.63 mg 3 ity of mL 00:00: (three) [place] nebulizer 00 times Medical solution daily as Branch needed for Wheezing or Shortness of Breath. losartan 50 2020-09 Yes [id number] 50mg Take 1 [facility] mg tablet -09 tablet by ity o f 00:00: mouth 2 [place] 00 (two) Medical times Branch daily. clotrimazol 2020-09 Yes [id number] Apply to [facility] e-betametha 09 area(s) 2 ity of sone cream 00:00: (two) [place] 00 times Medical daily. Branch cyclobenzap 2020-09 Yes [id number] TAKE 1 [facility] rine 5 mg 10-04 TABLET BY ity o f tablet 00:00: MOUTH [place] 00 EVERY 8 Medical HOURS Branch NEEDED econazole 2020-09 Yes [id number] Apply to [facility] nitrate 1 % 10-04 area(s) 2 ity of cream 00:00: (two) [place] 00 times Medical daily. Branch albuterol 2020-09 Yes [id number] 2{puff} Inhale 2 [facility] (PROAIR -09 Puffs ity of HFA) 90 00:00: every 6 [place] mcg/actuati 00 (six) Medical on inhaler hours as Branc h needed for Wheezing or Shortness of Breath. triamcinolo 2020-09 Yes [id number] Apply to [facility] ne 0.025 % 10-04 area(s) 3 ity of ointment 00:00: (three) [place] 00 times Medical daily. For Branch itching diltiazem 2020-09 Yes [id number] 120mg Take 1 [facility] n[facility] (CARTIA XT) 09 capsule by it y of 120 mg 24 00:00: mouth 2 [place] hr capsule 00 (two) Medical times Branch daily. cyanocobala 2020-09 Yes [id number] 1000ug 1 mL by [facility] min 1,000 -09 Intramuscu ity of mcg/mL 00:00: lar route [place] injection 00 every 2 Medical (two) Branch weeks. levothyroxi 2020-09 Yes [id number] 50ug Take 1 [facility] ne 50 mcg 1-09 tablet by ity o f tablet 00:00: mouth [place] 00 every Medical morning. Branch fluticasone 2020-09 Yes [id number] 2{puff} Inhale 2 [facility] propionate 1-09 Puffs ity of (FLOVENT 00:00: every 12 [place] HFA) 110 00 (twelve) Medical mcg/actuati hours. Branch on inhaler Rinse mouth after each use. levalbutero 2020-09 Yes [id number] .63mg Inhale [facility] l 0.63 mg/3 1-09 0.63 mg 3 ity of mL 00:00: (three) [place] nebulizer 00 times Medical solution daily as Branch needed for Wheezing or Shortness of Breath. losartan 50 2020-09 Yes [id number] 50mg Take 1 [facility] mg tablet 1-09 tablet by ity o f 00:00: mouth 2 [place] 00 (two) Medical times Branch daily. clotrimazol 2020-09 Yes [id number] Apply to [facility] e-betametha -09 area(s) 2 ity of sone cream 00:00: (two) [place] 00 times Medical daily. Branch cyclobenzap 2020-09 Yes [id number] TAKE 1 [facility] rine 5 mg -09 TABLET BY ity o f tablet 00:00: MOUTH [place] 00 EVERY 8 Medical HOURS Branch NEEDED econazole 2020-09 Yes [id number] Apply to [facility] nitrate 1 % 10-04 area(s) 2 ity of cream 00:00: (two) [place] 00 times Medical daily. Branch albuterol 2020-09 Yes [id number] 2{puff} Inhale 2 [facility] (PROAIR 1-09 Puffs ity of HFA) 90 00:00: every 6 [place] mcg/actuati 00 (six) Medical on inhaler hours as Branc h needed for Wheezing or Shortness of Breath. triamcinolo 2020-09 Yes [id number] Apply to [facility] ne 0.025 % -09 area(s) 3 ity of ointment 00:00: (three) [place] 00 times Medical daily. For Branch itching diltiazem 2020-09 Yes [id number] 120mg Take 1 [facility] (CARTIA XT) -09 capsule by it y of 120 mg 24 00:00: mouth 2 [place] hr capsule 00 (two) Medical times Branch daily. cyanocobala 2020-09 Yes [id number] 1000ug 1 mL by [facility] min 1,000 1-09 Intramuscu ity of mcg/mL 00:00: lar route [place] injection 00 every 2 Medical (two) Branch weeks. levothyroxi 2020-09 Yes [id number] 50ug Take 1 [facility] ne 50 mcg 1-09 tablet by ity o f tablet 00:00: mouth [place] 00 every Medical morning. Branch fluticasone 2020-09 Yes [id number] 2{puff} Inhale 2 [facility] propionate 1-09 Puffs ity of (FLOVENT 00:00: every 12 [place] HFA) 110 00 (twelve) Medical mcg/actuati hours. Branch on inhaler Rinse mouth after each use. levalbutero 2020-09 Yes [id number] .63mg Inhale [facility] l 0.63 mg/3 1-09 0.63 mg 3 ity of mL 00:00: (three) [place] nebulizer 00 times Medical solution daily as Branch needed for Wheezing or Shortness of Breath. losartan 50 2020-09 Yes [id number] 50mg Take 1 [facility] mg tablet 1-09 tablet by ity o f 00:00: mouth 2 [place] 00 (two) Medical times Branch daily. clotrimazol 2020-09 Yes [id number] Apply to [facility] e-betametha -09 area(s) 2 ity of sone cream 00:00: (two) [place] 00 times Medical daily. Branch cyclobenzap 2020-09 Yes [id number] TAKE 1 [facility] rine 5 mg 1-09 TABLET BY ity o f tablet 00:00: MOUTH [place] 00 EVERY 8 Medical HOURS Branch NEEDED econazole 2020-09 Yes [id number] Apply to [facility] nitrate 1 % 1-09 area(s) 2 ity of cream 00:00: (two) [place] 00 times Medical daily. Branch albuterol 2020-09 Yes [id number] 2{puff} Inhale 2 [facility] (PROAIR 1-09 Puffs ity of HFA) 90 00:00: every 6 [place] mcg/actuati 00 (six) Medical on inhaler hours as Branc h needed for Wheezing or Shortness of Breath. triamcinolo 2020-09 Yes [id number] Apply to [facility] ne 0.025 % 1-09 area(s) 3 ity of ointment 00:00: (three) [place] 00 times Medical daily. For Branch itching diltiazem 2020-09 Yes [id number] 120mg Take 1 [facility] n[facility] (CARTIA XT) 10-04 capsule by it y of 120 mg 24 00:00: mouth 2 [place] hr capsule 00 (two) Medical times Branch daily. cyanocobala 2020-09- No [id number] 1000ug 1 mL by [facility] min 1,000 10-04 Intramuscu ity of mcg/mL 00:00: 00:00 lar route [place] injection 00 :00 every 2 Medical (two) Branch weeks. fluticasone 2020-09- No [id number] 2{puff} Inhale 2 [facility] propionate 10-04 Puffs ity of (FLOVENT 00:00: 00:00 every 12 [place] HFA[place] 110 00 :00 (twelve) Medical mcg/actuati hours. Branch on inhaler Rinse mouth after each use. clotrimazol 2020-09- No [id number] Apply to [facility] e-betametha 10-04 area(s) 2 it y of sone cream 00:00: 00:00 (two) [place] 00 :00 times Medical daily. Branch econazole 2020-09- No [id number] Apply to [facility] nitrate 1 % 10-04 area(s) 2 it y of cream 00:00: 00:00 (two) [place] 00 :00 times Medical daily. Branch triamcinolo 2020-09- No [id number] Apply to [facility] ne 0.025 % 10-04 area(s) 3 ity of ointment 00:00: 00:00 (three) [place] 00 :00 times Medical daily. For Branch itching fluticasone 2020-09- No [id number] 2{puff} Inhale 2 [facility] propionate 10-04 Puffs ity of (FLOVENT 00:00: 00:00 every 12 [place] HFA[place] 110 00 :00 (twelve) Medical mcg/actuati hours. Branch on inhaler Rinse mouth after each use. clotrimazol 2020-09- No [id number] Apply to [facility] e-betametha 10-04 area(s) 2 it y of sone cream 00:00: 00:00 (two) [place] 00 :00 times Medical daily. Branch econazole 2020-09- No [id number] Apply to [facility] nitrate 1 % 10-04 area(s) 2 it y of cream 00:00: 00:00 (two) [place] 00 :00 times Medical daily. Branch triamcinolo 2020-09- No [id number] Apply to [facility] ne 0.025 % 10-04 area(s) 3 ity of ointment 00:00: 00:00 (three) [place] 00 :00 times Medical daily. For Branch itching levothyroxi 2020-09- No [id number] 50ug Take 1 [facility] ne 50 mcg 10-04 tablet by ity of tablet 00:00: 00:00 mouth [place] 00 :00 every Medical morning. Branch losartan 50 2020-09- No [id number] 50mg Take 1 [facility] mg tablet 10-04 tablet by ity of 00:00: 00:00 mouth 2 [place] 00 :00 (two) Medical times Branch daily. diltiazem 2020-09- No [id number] 120mg Take 1 [facility] (CARTIA XT) 10-04 capsule by i ty of 120 mg 24 00:00: 00:00 mouth 2 [place] hr capsule 00 :00 (two) Medical times Branch daily. rosuvastati 2020-09- No [id number] 10mg Take 1 [facility] n 10 mg 10-04 tablet by ity of tablet 00:00: 00:00 mouth at [place] 00 :00 bedtime. Medical Branch rosuvastati 2020-09- No [id number] 10mg Take 1 [facility] n 10 mg [...] [place] 00 Medical Branch FERROUS 2018-0 Yes [id number] TAKE ONE [facility] vers SULFATE 325 8-13 TABLET BY ity of mg (65 mg 00:00: MOUTH [place] iron) 00 THREE Medical tablet TIMES Branch DAILY WITH MEALS FERROUS Yes [id number] TAKE ONE [facility] vers SULFATE 325 8-13 TABLET BY ity of mg (65 mg 00:00: MOUTH [place] iron) 00 THREE Medical tablet TIMES Branch DAILY WITH MEALS FERROUS Yes [id number] TAKE ONE [facility] vers SULFATE 325 8-13 TABLET BY ity of mg (65 mg 00:00: MOUTH [place] iron) 00 THREE Medical tablet TIMES Branch DAILY WITH MEALS FERROUS Yes [id number] TAKE ONE [facility] vers SULFATE 325 8-13 TABLET BY ity of mg (65 mg 00:00: MOUTH [place] iron) 00 THREE Medical tablet TIMES Branch DAILY WITH MEALS FERROUS Yes [id number] TAKE ONE [facility] vers SULFATE 325 8-13 TABLET BY ity of mg (65 mg 00:00: MOUTH [place] iron) 00 THREE Medical tablet TIMES Branch DAILY WITH MEALS FERROUS Yes [id number] TAKE ONE [facility] vers SULFATE 325 8-13 TABLET BY ity of mg (65 mg 00:00: MOUTH [place] iron) 00 THREE Medical tablet TIMES Branch DAILY WITH MEALS FERROUS Yes [id number] TAKE ONE [facility] vers SULFATE 325 8-13 TABLET BY ity of mg (65 mg 00:00: MOUTH [place] iron) 00 THREE Medical tablet TIMES Branch DAILY WITH MEALS FERROUS Yes [id number] TAKE ONE [facility] vers SULFATE 325 8-13 TABLET BY ity of mg (65 mg 00:00: MOUTH [place] iron) 00 THREE Medical tablet TIMES Branch DAILY WITH MEALS FERROUS Yes [id number] TAKE ONE [facility] vers SULFATE 325 8-13 TABLET BY ity of mg (65 mg 00:00: MOUTH [place] iron) 00 THREE Medical tablet TIMES Branch DAILY WITH MEALS FERROUS Yes [id number] TAKE ONE [facility] vers SULFATE 325 8-13 TABLET BY ity of mg (65 mg 00:00: MOUTH [place] iron) 00 THREE Medical tablet TIMES Branch DAILY WITH MEALS FERROUS Yes [id number] TAKE ONE [facility] vers SULFATE 325 8-13 TABLET BY ity of mg (65 mg 00:00: MOUTH [place] iron) 00 THREE Medical tablet TIMES Branch DAILY WITH MEALS FERROUS Yes [id number] TAKE ONE [facility] vers SULFATE 325 8-13 TABLET BY ity of mg (65 mg 00:00: MOUTH [place] iron) 00 THREE Medical tablet TIMES Branch DAILY WITH MEALS FERROUS Yes [id number] TAKE ONE [facility] vers SULFATE 325 8-13 TABLET BY ity of mg (65 mg 00:00: MOUTH [place] iron) 00 THREE Medical tablet TIMES Branch DAILY WITH MEALS FERROUS Yes [id number] TAKE ONE [facility] vers SULFATE 325 8-13 TABLET BY ity of mg (65 mg 00:00: MOUTH [place] iron) 00 THREE Medical tablet TIMES Branch DAILY WITH MEALS FERROUS Yes [id number] TAKE ONE [facility] vers SULFATE 325 8-13 TABLET BY ity of mg (65 mg 00:00: MOUTH [place] iron) 00 THREE Medical tablet TIMES Branch DAILY WITH MEALS FERROUS Yes [id number] TAKE ONE [facility] vers SULFATE 325 8-13 TABLET BY ity of mg (65 mg 00:00: MOUTH [place] iron) 00 THREE Medical tablet TIMES Branch DAILY WITH MEALS FERROUS Yes [id number] TAKE ONE [facility] vers SULFATE 325 8-13 TABLET BY ity of mg (65 mg 00:00: MOUTH [place] iron) 00 THREE Medical tablet TIMES Branch DAILY WITH MEALS FERROUS Yes [id number] TAKE ONE [facility] vers SULFATE 325 8-13 TABLET BY ity of mg (65 mg 00:00: MOUTH [place] iron) 00 THREE Medical tablet TIMES Branch DAILY WITH MEALS FERROUS Yes [id number] TAKE ONE [facility] vers SULFATE 325 8-13 TABLET BY ity of mg (65 mg 00:00: MOUTH [place] iron) 00 THREE Medical tablet TIMES Branch DAILY WITH MEALS FERROUS Yes [id number] TAKE ONE [facility] vers SULFATE 325 8-13 TABLET BY ity of mg (65 mg 00:00: MOUTH [place] iron) 00 THREE Medical tablet TIMES Branch DAILY WITH MEALS FERROUS Yes [id number] TAKE ONE [facility] vers SULFATE 325 8-13 TABLET BY ity of mg (65 mg 00:00: MOUTH [place] iron) 00 THREE Medical tablet TIMES Branch DAILY WITH MEALS FERROUS Yes [id number] TAKE ONE [facility] vers SULFATE 325 8-13 TABLET BY ity of mg (65 mg 00:00: MOUTH [place] iron) 00 THREE Medical tablet TIMES Branch DAILY WITH MEALS FERROUS Yes [id number] TAKE ONE [facility] vers SULFATE 325 8-13 TABLET BY ity of mg (65 mg 00:00: MOUTH [place] iron) 00 THREE Medical tablet TIMES Branch DAILY WITH MEALS FERROUS Yes [id number] TAKE ONE [facility] vers SULFATE 325 8-13 TABLET BY ity of mg (65 mg 00:00: MOUTH [place] iron) 00 THREE Medical tablet TIMES Branch DAILY WITH MEALS FERROUS Yes [id number] TAKE ONE [facility] vers SULFATE 325 8-13 TABLET BY ity of mg (65 mg 00:00: MOUTH [place] iron) 00 THREE Medical tablet TIMES Branch DAILY WITH MEALS FERROUS Yes [id number] TAKE ONE [facility] vers SULFATE 325 8-13 TABLET BY ity of mg (65 mg 00:00: MOUTH [place] iron) 00 THREE Medical tablet TIMES Branch DAILY WITH MEALS FERROUS Yes [id number] TAKE ONE [facility] vers SULFATE 325 8-13 TABLET BY ity of mg (65 mg 00:00: MOUTH [place] iron) 00 THREE Medical tablet TIMES Branch DAILY WITH MEALS FERROUS Yes [id number] TAKE ONE [facility] vers SULFATE 325 8-13 TABLET BY ity of mg (65 mg 00:00: MOUTH [place] iron) 00 THREE Medical tablet TIMES Branch DAILY WITH MEALS FERROUS Yes [id number] TAKE ONE [facility] SULFATE 325 8-13 TABLET BY ity of mg (65 mg 00:00: MOUTH [place] iron) 00 THREE Medical tablet TIMES Branch DAILY WITH MEALS FERROUS Yes [id number] TAKE ONE [facility] vers SULFATE 325 8-13 TABLET BY ity of mg (65 mg 00:00: MOUTH [place] iron) 00 THREE Medical tablet TIMES Branch DAILY WITH MEALS FERROUS Yes [id number] TAKE ONE [facility] vers SULFATE 325 8-13 TABLET BY ity of mg (65 mg 00:00: MOUTH [place] iron) 00 THREE Medical tablet TIMES Branch DAILY WITH MEALS FERROUS Yes [id number] TAKE ONE [facility] vers SULFATE 325 8-13 TABLET BY ity of mg (65 mg 00:00: MOUTH [place] iron) 00 THREE Medical tablet TIMES Branch DAILY WITH MEALS FERROUS Yes [id number] TAKE ONE [facility] vers SULFATE 325 8-13 TABLET BY ity of mg (65 mg 00:00: MOUTH [place] iron) 00 THREE Medical tablet TIMES Branch DAILY WITH MEALS FERROUS Yes [id number] TAKE ONE [facility] vers SULFATE 325 8-13 TABLET BY ity of mg (65 mg 00:00: MOUTH [place] iron) 00 THREE Medical tablet TIMES Branch DAILY WITH MEALS FERROUS Yes [id number] TAKE ONE [facility] vers SULFATE 325 8-13 TABLET BY ity of mg (65 mg 00:00: MOUTH [place] iron) 00 THREE Medical tablet TIMES Branch DAILY WITH MEALS FERROUS Yes [id number] TAKE ONE [facility] vers SULFATE 325 8-13 TABLET BY ity of mg (65 mg 00:00: MOUTH [place] iron) 00 THREE Medical tablet TIMES Branch DAILY WITH MEALS FERROUS Yes [id number] TAKE ONE [facility] vers SULFATE 325 8-13 TABLET BY ity of mg (65 mg 00:00: MOUTH [place] iron) 00 THREE Medical tablet TIMES Branch DAILY WITH MEALS FERROUS Yes [id number] TAKE ONE [facility] vers SULFATE 325 8-13 TABLET BY ity of mg (65 mg 00:00: MOUTH [place] iron) 00 THREE Medical tablet TIMES Branch DAILY WITH MEALS FERROUS Yes [id number] TAKE ONE [facility] vers SULFATE 325 8-13 TABLET BY ity of mg (65 mg 00:00: MOUTH [place] iron) 00 THREE Medical tablet TIMES Branch DAILY WITH MEALS FERROUS Yes [id number] TAKE ONE [facility] vers SULFATE 325 8-13 TABLET BY ity of mg (65 mg 00:00: MOUTH [place] iron) 00 THREE Medical tablet TIMES Branch DAILY WITH MEALS FERROUS Yes [id number] TAKE ONE [facility] vers SULFATE 325 8-13 TABLET BY ity of mg (65 mg 00:00: MOUTH [place] iron) 00 THREE Medical tablet TIMES Branch DAILY WITH MEALS FERROUS Yes [id number] TAKE ONE [facility] vers SULFATE 325 8-13 TABLET BY ity of mg (65 mg 00:00: MOUTH [place] iron) 00 THREE Medical tablet TIMES Branch DAILY WITH MEALS FERROUS Yes [id number] TAKE ONE [facility] vers SULFATE 325 8-13 TABLET BY ity of mg (65 mg 00:00: MOUTH [place] iron) 00 THREE Medical tablet TIMES Branch DAILY WITH MEALS FERROUS Yes [id number] TAKE ONE [facility] vers SULFATE 325 8-13 TABLET BY ity of mg (65 mg 00:00: MOUTH [place] iron) 00 THREE Medical tablet TIMES Branch DAILY WITH MEALS FERROUS 2018-0 Yes [id number] TAKE ONE [facility] vers SULFATE 325 8-13 TABLET BY ity of mg (65 mg 00:00: MOUTH [place] iron) 00 THREE Medical tablet TIMES Branch DAILY WITH MEALS FERROUS Yes [id number] TAKE ONE [facility] vers SULFATE 325 8-13 TABLET BY ity of mg (65 mg 00:00: MOUTH [place] iron) 00 THREE Medical tablet TIMES Branch DAILY WITH MEALS FERROUS Yes [id number] TAKE ONE [facility] vers SULFATE 325 8-13 TABLET BY ity of mg (65 mg 00:00: MOUTH [place] iron) 00 THREE Medical tablet TIMES Branch DAILY WITH MEALS FERROUS Yes [id number] TAKE ONE [facility] vers SULFATE 325 8-13 TABLET BY ity of mg (65 mg 00:00: MOUTH [place] iron) 00 THREE Medical tablet TIMES Branch DAILY WITH MEALS FERROUS Yes [id number] TAKE ONE [facility] SULFATE 325 8-13 TABLET BY ity of mg (65 mg 00:00: MOUTH [place] iron) 00 THREE Medical tablet TIMES Branch DAILY WITH MEALS FERROUS Yes [id number] TAKE ONE [facility] vers SULFATE 325 8-13 TABLET BY ity of mg (65 mg 00:00: MOUTH [place] iron) 00 THREE Medical tablet TIMES Branch DAILY WITH MEALS FERROUS Yes [id number] TAKE ONE [facility] vers SULFATE 325 8-13 TABLET BY ity of mg (65 mg 00:00: MOUTH [place] iron) 00 THREE Medical tablet TIMES Branch DAILY WITH MEALS FERROUS Yes [id number] TAKE ONE [facility] vers SULFATE 325 8-13 TABLET BY ity of mg (65 mg 00:00: MOUTH [place] iron) 00 THREE Medical tablet TIMES Branch DAILY WITH MEALS FERROUS Yes [id number] TAKE ONE [facility] vers SULFATE 325 8-13 TABLET BY ity of mg (65 mg 00:00: MOUTH [place] iron) 00 THREE Medical tablet TIMES Branch DAILY WITH MEALS FERROUS Yes [id number] TAKE ONE [facility] vers SULFATE 325 8-13 TABLET BY ity of mg (65 mg 00:00: MOUTH [place] iron) 00 THREE Medical tablet TIMES Branch DAILY WITH MEALS FERROUS Yes [id number] TAKE ONE [facility] vers SULFATE 325 8-13 TABLET BY ity of mg (65 mg 00:00: MOUTH [place] iron) 00 THREE Medical tablet TIMES Branch DAILY WITH MEALS FERROUS Yes [id number] TAKE ONE [facility] vers SULFATE 325 8-13 TABLET BY ity of mg (65 mg 00:00: MOUTH [place] iron) 00 THREE Medical tablet TIMES Branch DAILY WITH MEALS FERROUS Yes [id number] TAKE ONE [facility] vers SULFATE 325 8-13 TABLET BY ity of mg (65 mg 00:00: MOUTH [place] iron) 00 THREE Medical tablet TIMES Branch DAILY WITH MEALS FERROUS Yes [id number] TAKE ONE [facility] vers SULFATE 325 8-13 TABLET BY ity of mg (65 mg 00:00: MOUTH [place] iron) 00 THREE Medical tablet TIMES Branch DAILY WITH MEALS FERROUS Yes [id number] TAKE ONE [facility] vers SULFATE 325 8-13 TABLET BY ity of mg (65 mg 00:00: MOUTH [place] iron) 00 THREE Medical tablet TIMES Branch DAILY WITH MEALS FERROUS Yes [id number] TAKE ONE [facility] vers SULFATE 325 8-13 TABLET BY ity of mg (65 mg 00:00: MOUTH [place] iron) 00 THREE Medical tablet TIMES Branch DAILY WITH MEALS FERROUS Yes [id number] TAKE ONE [facility] vers SULFATE 325 8-13 TABLET BY ity of mg (65 mg 00:00: MOUTH [place] iron) 00 THREE Medical tablet TIMES Branch DAILY WITH MEALS FERROUS Yes [id number] TAKE ONE [facility] vers SULFATE 325 8-13 TABLET BY ity of mg (65 mg 00:00: MOUTH [place] iron) 00 THREE Medical tablet TIMES Branch DAILY WITH MEALS FERROUS Yes [id number] TAKE ONE [facility] vers SULFATE 325 8-13 TABLET BY ity of mg (65 mg 00:00: MOUTH [place] iron) 00 THREE Medical tablet TIMES Branch DAILY WITH MEALS FERROUS Yes [id number] TAKE ONE [facility] vers SULFATE 325 8-13 TABLET BY ity of mg (65 mg 00:00: MOUTH [place] iron) 00 THREE Medical tablet TIMES Branch DAILY WITH MEALS FERROUS Yes [id number] TAKE ONE [facility] vers SULFATE 325 8-13 TABLET BY ity of mg (65 mg 00:00: MOUTH [place] iron) 00 THREE Medical tablet TIMES Branch DAILY WITH MEALS FERROUS Yes [id number] TAKE ONE [facility] vers SULFATE 325 8-13 TABLET BY ity of mg (65 mg 00:00: MOUTH [place] iron) 00 THREE Medical tablet TIMES Branch DAILY WITH MEALS FERROUS Yes [id number] TAKE ONE [facility] vers SULFATE 325 8-13 TABLET BY ity of mg (65 mg 00:00: MOUTH [place] iron) 00 THREE Medical tablet TIMES Branch DAILY WITH MEALS FERROUS Yes [id number] TAKE ONE [facility] vers SULFATE 325 8-13 TABLET BY ity of mg (65 mg 00:00: MOUTH [place] iron) 00 THREE Medical tablet TIMES Branch DAILY WITH MEALS FERROUS Yes [id number] TAKE ONE [facility] vers SULFATE 325 8-13 TABLET BY ity of mg (65 mg 00:00: MOUTH [place] iron) 00 THREE Medical tablet TIMES Branch DAILY WITH MEALS coQ10, Yes [id number] 1{capsu Take 1 U nivers ubiquinol, 1-16 le} capsule by ity of 100 mg Cap 00:00: mouth [place] 00 daily. Medical Branch coQ10, Yes [id number] 1{capsu Take 1 U nivers ubiquinol, 1-16 le} capsule by ity of 100 mg Cap 00:00: mouth [place] 00 daily. [facility] coQ10, Yes [id number] 1{capsu Take 1 U nivers ubiquinol, 1-16 le} capsule by ity of 100 mg Cap 00:00: mouth [place] 00 daily. [facility] coQ10, Yes [id number] 1{capsu Take 1 U nivers ubiquinol, 1-16 le} capsule by ity of 100 mg Cap 00:00: mouth [place] 00 daily. [facility] coQ10, Yes [id number] 1{capsu Take 1 U nivers ubiquinol, 1-16 le} capsule by ity of 100 mg Cap 00:00: mouth [place] 00 daily. [facility] coQ10, Yes [id number] 1{capsu Take 1 U nivers ubiquinol, 1-16 le} capsule by ity of 100 mg Cap 00:00: mouth [place] 00 daily. [facility] coQ10, Yes [id number] 1{capsu Take 1 U nivers ubiquinol, 1-16 le} capsule by ity of 100 mg Cap 00:00: mouth [place] 00 daily. [facility] coQ10, Yes [id number] 1{capsu Take 1 U nivers ubiquinol, 1-16 le} capsule by ity of 100 mg Cap 00:00: mouth [place] 00 daily. [facility] coQ10, Yes [id number] 1{capsu Take 1 U nivers ubiquinol, 1-16 le} capsule by ity of 100 mg Cap 00:00: mouth [place] 00 daily. [facility] coQ10, Yes [id number] 1{capsu Take 1 U nivers ubiquinol, 1-16 le} capsule by ity of 100 mg Cap 00:00: mouth [place] 00 daily. Medical Branch coQ10, Yes [id number] 1{capsu Take 1 U nivers ubiquinol, 1-16 le} capsule by ity of 100 mg Cap 00:00: mouth [place] 00 daily. Medical Branch coQ10, Yes [id number] 1{capsu Take 1 U nivers ubiquinol, 1-16 le} capsule by ity of 100 mg Cap 00:00: mouth [place] 00 daily. Medical Branch coQ10, Yes [id number] 1{capsu Take 1 U nivers ubiquinol, 1-16 le} capsule by ity of 100 mg Cap 00:00: mouth [place] 00 daily. [facility] coQ10, Yes [id number] 1{capsu Take 1 U nivers ubiquinol, 1-16 le} capsule by ity of 100 mg Cap 00:00: mouth [place] 00 daily. Medical Branch coQ10, Yes [id number] 1{capsu Take 1 U nivers ubiquinol, 1-16 le} capsule by ity of 100 mg Cap 00:00: mouth [place] 00 daily. Medical Branch coQ10, Yes [id number] 1{capsu Take 1 U nivers ubiquinol, 1-16 le} capsule by ity of 100 mg Cap 00:00: mouth [place] 00 daily. [facility] coQ10, Yes [id number] 1{capsu Take 1 U nivers ubiquinol, 1-16 le} capsule by ity of 100 mg Cap 00:00: mouth [place] 00 daily. Medical Branch coQ10, Yes [id number] 1{capsu Take 1 U nivers ubiquinol, 1-16 le} capsule by ity of 100 mg Cap 00:00: mouth [place] 00 daily. Medical Branch coQ10, Yes [id number] 1{capsu Take 1 U nivers ubiquinol, 1-16 le} capsule by ity of 100 mg Cap 00:00: mouth [place] 00 daily. [facility] coQ10, Yes [id number] 1{capsu Take 1 U nivers ubiquinol, 1-16 le} capsule by ity of 100 mg Cap 00:00: mouth [place] 00 daily. [facility] coQ10, Yes [id number] 1{capsu Take 1 U nivers ubiquinol, 1-16 le} capsule by ity of 100 mg Cap 00:00: mouth [place] 00 daily. Medical Branch coQ10, Yes [id number] 1{capsu Take 1 U nivers ubiquinol, 1-16 le} capsule by ity of 100 mg Cap 00:00: mouth [place] 00 daily. Medical Branch coQ10, Yes [id number] 1{capsu Take 1 U nivers ubiquinol, 1-16 le} capsule by ity of 100 mg Cap 00:00: mouth [place] 00 daily. Medical Branch coQ10, Yes [id number] 1{capsu Take 1 U nivers ubiquinol, 1-16 le} capsule by ity of 100 mg Cap 00:00: mouth [place] 00 daily. Medical Branch coQ10, Yes [id number] 1{capsu Take 1 U nivers ubiquinol, 1-16 le} capsule by ity of 100 mg Cap 00:00: mouth [place] 00 daily. Medical Branch coQ10, Yes [id number] 1{capsu Take 1 U nivers ubiquinol, 1-16 le} capsule by ity of 100 mg Cap 00:00: mouth [place] 00 daily. Medical Branch coQ10, Yes [id number] 1{capsu Take 1 U nivers ubiquinol, 1-16 le} capsule by ity of 100 mg Cap 00:00: mouth [place] 00 daily. Medical Branch coQ10, Yes [id number] 1{capsu Take 1 U nivers ubiquinol, 1-16 le} capsule by ity of 100 mg Cap 00:00: mouth [place] 00 daily. Medical Branch coQ10, Yes [id number] 1{capsu Take 1 U nivers ubiquinol, 1-16 le} capsule by ity of 100 mg Cap 00:00: mouth [place] 00 daily. Medical Branch coQ10, Yes [id number] 1{capsu Take 1 U nivers ubiquinol, 1-16 le} capsule by ity of 100 mg Cap 00:00: mouth [place] 00 daily. Medical Branch coQ10, Yes [id number] 1{capsu Take 1 U nivers ubiquinol, 1-16 le} capsule by ity of 100 mg Cap 00:00: mouth [place] 00 daily. Medical Branch coQ10, Yes [id number] 1{capsu Take 1 U nivers ubiquinol, 1-16 le} capsule by ity of 100 mg Cap 00:00: mouth [place] 00 daily. Medical Branch coQ10, Yes [id number] 1{capsu Take 1 U nivers ubiquinol, 1-16 le} capsule by ity of 100 mg Cap 00:00: mouth [place] 00 daily. Medical Branch coQ10, Yes [id number] 1{capsu Take 1 U nivers ubiquinol, 1-16 le} capsule by ity of 100 mg Cap 00:00: mouth [place] 00 daily. Medical Branch coQ10, Yes [id number] 1{capsu Take 1 U nivers ubiquinol, 1-16 le} capsule by ity of 100 mg Cap 00:00: mouth [place] 00 daily. Medical Branch coQ10, Yes [id number] 1{capsu Take 1 U nivers ubiquinol, 1-16 le} capsule by ity of 100 mg Cap 00:00: mouth [place] 00 daily. [facility] coQ10, Yes [id number] 1{capsu Take 1 U nivers ubiquinol, 1-16 le} capsule by ity of 100 mg Cap 00:00: mouth [place] 00 daily. [facility] coQ10, Yes [id number] 1{capsu Take 1 [facility] nivers ubiquinol, 1-16 le} capsule by ity of 100 mg Cap 00:00: mouth [place] 00 daily. [facility] coQ10, Yes [id number] 1{capsu Take 1 [facility] nivers ubiquinol, 1-16 le} capsule by ity of 100 mg Cap 00:00: mouth [place] 00 daily. [facility] coQ10, Yes [id number] 1{capsu Take 1 [facility] nivers ubiquinol, 1-16 le} capsule by ity of 100 mg Cap 00:00: mouth [place] 00 daily. [facility] coQ10, Yes [id number] 1{capsu Take 1 U nivers ubiquinol, 1-16 le} capsule by ity of 100 mg Cap 00:00: mouth [place] 00 daily. [facility] coQ10, Yes [id number] 1{capsu Take 1 U nivers ubiquinol, 1-16 le} capsule by ity of 100 mg Cap 00:00: mouth [place] 00 daily. [facility] coQ10, Yes [id number] 1{capsu Take 1 U nivers ubiquinol, 1-16 le} capsule by ity of 100 mg Cap 00:00: mouth [place] 00 daily. [facility] coQ10, Yes [id number] 1{capsu Take 1 U nivers ubiquinol, 1-16 le} capsule by ity of 100 mg Cap 00:00: mouth [place] 00 daily. [facility] coQ10, Yes [id number] 1{capsu Take 1 U nivers ubiquinol, 1-16 le} capsule by ity of 100 mg Cap 00:00: mouth [place] 00 daily. [facility] coQ10, Yes [id number] 1{capsu Take 1 U nivers ubiquinol, 1-16 le} capsule by ity of 100 mg Cap 00:00: mouth [place] 00 daily. [facility] coQ10, Yes [id number] 1{capsu Take 1 U nivers ubiquinol, 1-16 le} capsule by ity of 100 mg Cap 00:00: mouth [place] 00 daily. [facility] coQ10, Yes [id number] 1{capsu Take 1 U nivers ubiquinol, 1-16 le} capsule by ity of 100 mg Cap 00:00: mouth [place] 00 daily. [facility] coQ10, Yes [id number] 1{capsu Take 1 U nivers ubiquinol, 1-16 le} capsule by ity of 100 mg Cap 00:00: mouth [place] 00 daily. [facility] coQ10, Yes [id number] 1{capsu Take 1 U nivers ubiquinol, 1-16 le} capsule by ity of 100 mg Cap 00:00: mouth [place] 00 daily. [facility] coQ10, Yes [id number] 1{capsu Take 1 U nivers ubiquinol, 1-16 le} capsule by ity of 100 mg Cap 00:00: mouth [place] 00 daily. [facility] coQ10, Yes [id number] 1{capsu Take 1 U nivers ubiquinol, 1-16 le} capsule by ity of 100 mg Cap 00:00: mouth [place] 00 daily. [facility] coQ10, Yes [id number] 1{capsu Take 1 U nivers ubiquinol, 1-16 le} capsule by ity of 100 mg Cap 00:00: mouth [place] 00 daily. [facility] coQ10, Yes [id number] 1{capsu Take 1 U nivers ubiquinol, 1-16 le} capsule by ity of 100 mg Cap 00:00: mouth [place] 00 daily. [facility] coQ10, Yes [id number] 1{capsu Take 1 U nivers ubiquinol, 1-16 le} capsule by ity of 100 mg Cap 00:00: mouth [place] 00 daily. [facility] coQ10, Yes [id number] 1{capsu Take 1 U nivers ubiquinol, 1-16 le} capsule by ity of 100 mg Cap 00:00: mouth [place] 00 daily. [facility] coQ10, Yes [id number] 1{capsu Take 1 U nivers ubiquinol, 1-16 le} capsule by ity of 100 mg Cap 00:00: mouth [place] 00 daily. [facility] coQ10, Yes [id number] 1{capsu Take 1 U nivers ubiquinol, 1-16 le} capsule by ity of 100 mg Cap 00:00: mouth [place] 00 daily. [facility] coQ10, Yes [id number] 1{capsu Take 1 U nivers ubiquinol, 1-16 le} capsule by ity of 100 mg Cap 00:00: mouth [place] 00 daily. [facility] coQ10, Yes [id number] 1{capsu Take 1 U nivers ubiquinol, 1-16 le} capsule by ity of 100 mg Cap 00:00: mouth [place] 00 daily. [facility] coQ10, Yes [id number] 1{capsu Take 1 U nivers ubiquinol, 1-16 le} capsule by ity of 100 mg Cap 00:00: mouth [place] 00 daily. [facility] coQ10, Yes [id number] 1{capsu Take 1 U nivers ubiquinol, 1-16 le} capsule by ity of 100 mg Cap 00:00: mouth [place] 00 daily. [facility] coQ10, Yes [id number] 1{capsu Take 1 U nivers ubiquinol, 1-16 le} capsule by ity of 100 mg Cap 00:00: mouth [place] 00 daily. [facility] coQ10, Yes [id number] 1{capsu Take 1 U nivers ubiquinol, 1-16 le} capsule by ity of 100 mg Cap 00:00: mouth [place] 00 daily. [facility] coQ10, Yes [id number] 1{capsu Take 1 U nivers ubiquinol, 1-16 le} capsule by ity of 100 mg Cap 00:00: mouth [place] 00 daily. [facility] coQ10, Yes [id number] 1{capsu Take 1 U nivers ubiquinol, 1-16 le} capsule by ity of 100 mg Cap 00:00: mouth [place] 00 daily. [facility] coQ10, Yes [id number] 1{capsu Take 1 U nivers ubiquinol, 1-16 le} capsule by ity of 100 mg Cap 00:00: mouth [place] 00 daily. [facility] coQ10, Yes [id number] 1{capsu Take 1 U nivers ubiquinol, 1-16 le} capsule by ity of 100 mg Cap 00:00: mouth [place] 00 daily. [facility] coQ10, Yes [id number] 1{capsu Take 1 U nivers ubiquinol, 1-16 le} capsule by ity of 100 mg Cap 00:00: mouth [place] 00 daily. [facility] loratadine Yes [id number] 10mg Take 1 [facility] 10 mg 1-23 tablet by ity of tablet 00:00: mouth [place] 00 daily. [facility] loratadine Yes [id number] 10mg Take 1 [facility] 10 mg 1-23 tablet by ity of tablet 00:00: mouth [place] 00 daily. [facility] loratadine Yes [id number] 10mg Take 1 [facility] 10 mg 1-23 tablet by ity of tablet 00:00: mouth [place] 00 daily. [facility] loratadine Yes [id number] 10mg Take 1 [facility] 10 mg 1-23 tablet by ity of tablet 00:00: mouth [place] 00 daily. [facility] loratadine Yes [id number] 10mg Take 1 [facility] 10 mg 1-23 tablet by ity of tablet 00:00: mouth [place] 00 daily. [facility] loratadine 2021- No [id number] 10mg Take 1 [facility] 10 mg 1-23 06-13 tablet by ity of tablet 00:00: 00:00 mouth [place] 00 :00 daily. 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) SARS-COV-2 COVID-19 2022-07-27 Completed Unive rsity of CHRISTELLE-SUCROSE VACCINE 00:00:00 [facility] 12 YRS+, BIVALENT Branch 0.3ML, IM, (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) SARS-COV-2 COVID-19 2022-07-27 Completed Unive rsity of CHRISTELLE-SUCROSE VACCINE 00:00:00 [facility] 12 YRS+, BIVALENT Branch 0.3ML, IM, (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) SARS-COV-2 COVID-19 2022-07-27 Completed Unive rsity of CHRISTELLE-SUCROSE VACCINE 00:00:00 [facility] 12 YRS+, BIVALENT Branch 0.3ML, IM, (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) SARS-COV-2 COVID-19 2022-07-27 Completed Unive rsity of CHRISTELLE-SUCROSE VACCINE 00:00:00 [facility] 12 YRS+, BIVALENT Branch 0.3ML, IM, (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) SARS-COV-2 COVID-19 2022-07-27 Completed Unive rsity of CHRISTELLE-SUCROSE VACCINE 00:00:00 [facility] 12 YRS+, BIVALENT Branch 0.3ML, IM, (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) SARS-COV-2 COVID-19 2022-07-27 Completed Unive rsity of CHRISTELLE-SUCROSE VACCINE 00:00:00 [facility] 12 YRS+, BIVALENT Branch 0.3ML, IM, (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) SARS-COV-2 COVID-19 2022-07-27 Completed Unive rsity of CHRISTELLE-SUCROSE VACCINE 00:00:00 [facility] 12 YRS+, BIVALENT Branch 0.3ML, IM, (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) SARS-COV-2 COVID-19 2022-07-27 Completed Unive rsity of CHRISTELLE-SUCROSE VACCINE 00:00:00 [facility] 12 YRS+, BIVALENT Branch 0.3ML, IM, (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) SARS-COV-2 COVID-19 2022-07-27 Completed Unive rsity of CHRISTELLE-SUCROSE VACCINE 00:00:00 [facility] 12 YRS+, BIVALENT Branch 0.3ML, IM, (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) SARS-COV-2 COVID-19 2022-07-27 Completed Unive rsity of CHRISTELLE-SUCROSE VACCINE 00:00:00 [facility] 12 YRS+, BIVALENT Branch 0.3ML, IM, (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) SARS-COV-2 COVID-19 2022-07-27 Completed Unive rsity of CHRISTELLE-SUCROSE VACCINE 00:00:00 [facility] 12 YRS+, BIVALENT Branch 0.3ML, IM, (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) SARS-COV-2 COVID-19 2022-07-27 Completed Unive rsity of CHRISTELLE-SUCROSE VACCINE 00:00:00 [facility] 12 YRS+, BIVALENT Branch 0.3ML, IM, (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) SARS-COV-2 COVID-19 2022-07-27 Completed Unive rsity of CHRISTELLE-SUCROSE VACCINE 00:00:00 [facility] 12 YRS+, BIVALENT Branch 0.3ML, IM, (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) SARS-COV-2 COVID-19 2022-07-27 Completed Unive rsity of CHRISTELLE-SUCROSE VACCINE 00:00:00 [facility] 12 YRS+, BIVALENT Branch 0.3ML, IM, (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) SARS-COV-2 COVID-19 2022-07-27 Completed Unive rsity of CHRISTELLE-SUCROSE VACCINE 00:00:00 [facility] 12 YRS+, BIVALENT Branch 0.3ML, IM, (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) SARS-COV-2 COVID-19 2022-07-27 Completed Unive rsity of CHRISTELLE-SUCROSE VACCINE 00:00:00 [facility] 12 YRS+, BIVALENT Branch 0.3ML, IM, (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) [facility] (hep a/hep b) 2022-02-24 Completed Uni versity of 00:00:00 [facility] (hep a/hep b) 2022-02-24 Completed [...] b) 2022-02-24 Completed Uni versity of 00:00:00 [place] [facility] (hep a/hep b) 2022-02-24 Completed Uni versity of 00:00:00 [place] [facility] (hep a/hep b) 2022-02-24 Completed Uni versity of 00:00:00 [facility] (hep a/hep b) 2022-02-24 Completed Uni versity of 00:00:00 [facility] (hep a/hep b) 2022-02-24 Completed Uni versity of 00:00:00 [place] [facility] (hep a/hep b) 2022-02-24 Completed Uni versity of 00:00:00 [facility] (hep a/hep b) 2022-02-24 Completed Uni versity of 00:00:00 [facility] (hep a/hep b) 2022-02-24 Completed Uni versity of 00:00:00 [place] [facility] (hep a/hep b) 2022-02-24 Completed Uni versity of 00:00:00 [place] [facility] (hep a/hep b) 2022-02-24 Completed Uni versity of 00:00:00 [place] [facility] (hep a/hep b) 2022-02-24 Completed Uni versity of 00:00:00 [place] [facility] (hep a/hep b) 2022-02-24 Completed Uni versity of 00:00:00 [place] [facility] (hep a/hep b) 2022-02-24 [...] b) 2022-02-24 Completed Uni versity of 00:00:00 [place] [facility] (hep a/hep b) 2022-02-24 Completed Uni versity of 00:00:00 [place] [facility] (hep a/hep b) 2022-02-24 Completed Uni versity of 00:00:00 [facility] (hep a/hep b) 2022-02-24 Completed Uni versity of 00:00:00 [place] [facility] (hep a/hep b) 2022-02-24 Completed Uni versity of 00:00:00 [facility] (hep a/hep b) 2022-02-24 Completed Uni versity of 00:00:00 [facility] (hep a/hep b) 2022-02-24 Completed [...] b) 2022-02-24 Completed Uni versity of 00:00:00 [place] [facility] (hep a/hep b) 2022-02-24 [...] b) 2022-02-24 Completed Uni versity of 00:00:00 [place] [facility] (hep a/hep b) 2022-02-24 Completed Uni vers[facility] of 00:00:00 [facility] (hep a/hep b) 2022-02-24 Completed Uni versity of 00:00:00 [place] [facility] (hep a/hep b) 2022-02-24 Completed Uni versity of 00:00:00 [facility] (hep a/hep b) 2022-02-24 Completed Uni versity of 00:00:00 [place] [facility] (hep a/hep b) 2022-02-24 Completed Uni vers[facility] of 00:00:00 [facility] (hep a/hep b) 2022-02-24 Completed Uni versity of 00:00:00 [facility] (hep a/hep b) 2022-02-24 Completed Uni versity of 00:00:00 [place] [facility] (hep a/hep b) 2022-02-24 Completed Uni versity of 00:00:00 [place] [facility] (hep a/hep b) 2022-02-24 Completed Uni versity of 00:00:00 [place] [facility] (hep a/hep b) 2022-02-24 Completed Uni versity of 00:00:00 [place] [facility] (hep a/hep b) 2022-02-24 [...] b) 2022-02-24 Completed Uni vers[facility] of 00:00:00 [place] [facility] (hep a/hep b) 2022-02-24 Completed Uni versity of 00:00:00 [place] [facility] (hep a/hep b) 2022-02-24 Completed Uni vers[facility] of 00:00:00 [facility] (hep a/hep b) 2022-02-24 Completed Uni versity of 00:00:00 [facility] (hep a/hep b) 2022-02-24 Completed Uni versity of 00:00:00 [facility] (hep a/hep b) 2022-02-24 Completed Uni versity of 00:00:00 [facility] (hep a/hep b) 2022-02-24 Completed Uni versity of 00:00:00 [facility] (hep a/hep b) 2022-02-24 Completed Uni versity of 00:00:00 [facility] (hep a/hep b) 2022-02-24 Completed Uni versity of 00:00:00 [place] [facility] (hep a/hep b) 2022-02-24 Completed Uni versity of 00:00:00 [place] [facility] (hep a/hep b) 2022-02-24 Completed Uni versity of 00:00:00 [place] [facility] (hep a/hep b) 2022-02-24 Completed Uni versity of 00:00:00 [facility] (hep a/hep b) 2022-01-14 Completed Uni versity of 00:00:00 [facility] (hep a/hep b) 2022-01-14 Completed Uni versity of 00:00:00 [place] [facility] (hep a/hep b) 2022-01-14 Completed Uni versity of 00:00:00 [place] [facility] (hep a/hep b) 2022-01-14 Completed Uni versity of 00:00:00 [place] [facility] (hep a/hep b) 2022-01-14 Completed Uni versity of 00:00:00 [place] [facility] (hep a/hep b) 2022-01-14 Completed Uni versity of 00:00:00 [place] [facility] (hep a/hep b) 2022-01-14 Completed Uni versity of 00:00:00 [facility] (hep a/hep b) 2022-01-14 Completed Uni versity of 00:00:00 [facility] (hep a/hep b) 2022-01-14 Completed Uni versity of 00:00:00 [facility] (hep a/hep b) 2022-01-14 Completed Uni versity of 00:00:00 [facility] (hep a/hep b) 2022-01-14 Completed Uni versity of 00:00:00 [facility] (hep a/hep b) 2022-01-14 Completed Uni versity of 00:00:00 [facility] (hep a/hep b) 2022-01-14 Completed Uni versity of 00:00:00 [facility] (hep a/hep b) 2022-01-14 Completed Uni versity of 00:00:00 [facility] (hep a/hep b) 2022-01-14 Completed Uni versity of 00:00:00 [facility] (hep a/hep b) 2022-01-14 Completed Uni versity of 00:00:00 [place] [facility] (hep a/hep b) 2022-01-14 Completed Uni versity of 00:00:00 [place] [facility] (hep a/hep b) 2022-01-14 Completed Uni versity of 00:00:00 [facility] (hep a/hep b) 2022-01-14 Completed [...] b) 2022-01-14 Completed Uni versity of 00:00:00 [place] [facility] (hep a/hep b) 2022-01-14 Completed Uni versity of 00:00:00 [place] [facility] (hep a/hep b) 2022-01-14 Completed Uni versity of 00:00:00 [place] [facility] (hep a/hep b) 2022-01-14 Completed Uni versity of 00:00:00 [place] [facility] (hep a/hep b) 2022-01-14 Completed Uni versity of 00:00:00 [place] [facility] (hep a/hep b) 2022-01-14 Completed Uni versity of 00:00:00 [facility] (hep a/hep b) 2022-01-14 Completed [...] b) 2022-01-14 Completed Uni versity of 00:00:00 [place] [facility] (hep a/hep b) 2022-01-14 Completed Uni versity of 00:00:00 [place] [facility] (hep a/hep b) 2022-01-14 Completed Uni versity of 00:00:00 [place] [facility] (hep a/hep b) 2022-01-14 Completed Uni versity of 00:00:00 [place] [facility] (hep a/hep b) 2022-01-14 Completed Uni versity of 00:00:00 [place] [facility] (hep a/hep b) 2022-01-14 Completed Uni versity of 00:00:00 [facility] (hep a/hep b) 2022-01-14 Completed Uni versity of 00:00:00 [facility] (hep a/hep b) 2022-01-14 Completed Uni versity of 00:00:00 [facility] (hep a/hep b) 2022-01-14 Completed Uni versity of 00:00:00 [facility] (hep a/hep b) 2022-01-14 Completed Uni versity of 00:00:00 [facility] (hep a/hep b) 2022-01-14 Completed Uni versity of 00:00:00 [facility] (hep a/hep b) 2022-01-14 Completed Uni versity of 00:00:00 [facility] (hep a/hep b) 2022-01-14 Completed Uni versity of 00:00:00 [facility] (hep a/hep b) 2022-01-14 Completed Uni versity of 00:00:00 [facility] (hep a/hep b) 2022-01-14 Completed Uni versity of 00:00:00 [facility] (hep a/hep b) 2022-01-14 Completed Uni versity of 00:00:00 [facility] (hep a/hep b) 2022-01-14 Completed Uni versity of 00:00:00 [facility] (hep a/hep b) 2022-01-14 Completed Uni versity of 00:00:00 [facility] Twin[facility] (hep a/hep b) 2022-01-14 Completed Uni versity of 00:00:00 [facility] (hep a/hep b) 2022-01-14 Completed Uni versity of 00:00:00 [facility] (hep a/hep b) 2022-01-14 Completed Uni versity of 00:00:00 [facility] (hep a/hep b) 2022-01-14 Completed Uni versity of 00:00:00 [facility] (hep a/hep b) 2022-01-14 Completed Uni versity of 00:00:00 [facility] (hep a/hep b) 2022-01-14 Completed Uni versity of 00:00:00 [facility] (hep a/hep b) 2022-01-14 Completed Uni versity of 00:00:00 [facility] (hep a/hep b) 2022-01-14 Completed Uni versity of 00:00:00 [facility] (hep a/hep b) 2022-01-14 Completed Uni versity of 00:00:00 [facility] (hep a/hep b) 2022-01-14 Completed Uni versity of 00:00:00 [facility] (hep a/hep b) 2022-01-14 Completed Uni versity of 00:00:00 [facility] (hep a/hep b) 2022-01-14 Completed Uni versity of 00:00:00 [facility] (hep a/hep b) 2022-01-14 Completed Uni versity of 00:00:00 [facility] (hep a/hep b) 2022-01-14 Completed Uni versity of 00:00:00 [facility] (hep a/hep b) 2022-01-14 Completed Uni versity of 00:00:00 [facility] SARS-COV-2 COVID-19 2021-07-23 Completed Unive rsity of PFIZER VACCINE 00:00:00 [facility] SARS-COV-2 COVID-19 2021-07-23 Completed Unive rsity of PFIZER VACCINE 00:00:00 [facility] SARS-COV-2 COVID-19 2021-07-23 Completed Unive rsity of PFIZER VACCINE 00:00:00 [facility] SARS-COV-2 COVID-19 2021-07-23 Completed Unive rsity of PFIZER VACCINE 00:00:00 [facility] SARS-COV-2 COVID-19 2021-07-23 Completed Unive rsity of PFIZER VACCINE 00:00:00 [facility] SARS-COV-2 COVID-19 2021-07-23 Completed Unive rsity of PFIZER VACCINE 00:00:00 [facility] SARS-COV-2 COVID-19 2021-07-23 Completed Unive rsity of PFIZER VACCINE 00:00:00 [facility] SARS-COV-2 COVID-19 2021-07-23 Completed Unive rsity of PFIZER VACCINE 00:00:00 [facility] SARS-COV-2 COVID-19 2021-07-23 Completed Unive rsity of PFIZER VACCINE 00:00:00 [facility] SARS-COV-2 COVID-19 2021-07-23 Completed Unive rsity of PFIZER VACCINE 00:00:00 [facility] SARS-COV-2 COVID-19 2021-07-23 Completed Unive rsity of PFIZER VACCINE 00:00:00 [facility] SARS-COV-2 COVID-19 2021-07-23 Completed Unive rsity of PFIZER VACCINE 00:00:00 [facility] SARS-COV-2 COVID-19 2021-07-23 Completed Unive rsity of PFIZER VACCINE 00:00:00 [facility] SARS-COV-2 COVID-19 2021-07-23 Completed Unive rsity of PFIZER VACCINE 00:00:00 [facility] SARS-COV-2 COVID-19 2021-07-23 Completed Unive rsity of PFIZER VACCINE 00:00:00 [facility] SARS-COV-2 COVID-19 2021-07-23 Completed Unive rsity of PFIZER VACCINE 00:00:00 [facility] SARS-COV-2 COVID-19 2021-07-23 Completed Unive rsity of PFIZER VACCINE 00:00:00 [facility] SARS-COV-2 COVID-19 2021-07-23 Completed Unive rsity of PFIZER VACCINE 00:00:00 [facility] SARS-COV-2 COVID-19 2021-07-23 Completed Unive rsity of PFIZER VACCINE 00:00:00 [facility] SARS-COV-2 COVID-19 2021-07-23 Completed Unive rsity of PFIZER VACCINE 00:00:00 [facility] SARS-COV-2 COVID-19 2021-07-23 Completed Unive rsity of PFIZER VACCINE 00:00:00 [facility] SARS-COV-2 COVID-19 2021-07-23 Completed Unive rsity of PFIZER VACCINE 00:00:00 [facility] SARS-COV-2 COVID-19 2021-07-23 Completed Unive rsity of PFIZER VACCINE 00:00:00 [facility] SARS-COV-2 COVID-19 2021-07-23 Completed Unive rsity of PFIZER VACCINE 00:00:00 [facility] SARS-COV-2 COVID-19 2021-07-23 Completed Unive rsity of PFIZER VACCINE 00:00:00 [facility] SARS-COV-2 COVID-19 2021-07-23 Completed Unive rsity of PFIZER VACCINE 00:00:00 [facility] SARS-COV-2 COVID-19 2021-07-23 Completed Unive rsity of PFIZER VACCINE 00:00:00 [facility] SARS-COV-2 COVID-19 2021-07-23 Completed Unive rsity of PFIZER VACCINE 00:00:00 [facility] SARS-COV-2 COVID-19 2021-07-23 Completed Unive rsity of PFIZER VACCINE 00:00:00 [facility] SARS-COV-2 COVID-19 2021-07-23 Completed Unive rsity of PFIZER VACCINE 00:00:00 [facility] SARS-COV-2 COVID-19 2021-07-23 Completed Unive rsity of PFIZER VACCINE 00:00:00 [facility] SARS-COV-2 COVID-19 2021-07-23 Completed Unive rsity of PFIZER VACCINE 00:00:00 [facility] SARS-COV-2 COVID-19 2021-07-23 Completed Unive rsity of PFIZER VACCINE 00:00:00 [facility] SARS-COV-2 COVID-19 2021-07-23 Completed Unive rsity of PFIZER VACCINE 00:00:00 [facility] SARS-COV-2 COVID-19 2021-07-23 Completed Unive rsity of PFIZER VACCINE 00:00:00 [facility] SARS-COV-2 COVID-19 2021-07-23 Completed Unive rsity of PFIZER VACCINE 00:00:00 [facility] SARS-COV-2 COVID-19 2021-07-23 Completed Unive rsity of PFIZER VACCINE 00:00:00 [facility] SARS-COV-2 COVID-19 2021-07-23 Completed Unive rsity of PFIZER VACCINE 00:00:00 [facility] SARS-COV-2 COVID-19 2021-07-23 Completed Unive rsity of PFIZER VACCINE 00:00:00 [facility] SARS-COV-2 COVID-19 2021-07-23 Completed Unive rsity of PFIZER VACCINE 00:00:00 [facility] SARS-COV-2 COVID-19 2021-07-23 Completed Unive rsity of PFIZER VACCINE 00:00:00 [facility] SARS-COV-2 COVID-19 2021-07-23 Completed Unive rsity of PFIZER VACCINE 00:00:00 [facility] SARS-COV-2 COVID-19 2021-07-23 Completed Unive rsity of PFIZER VACCINE 00:00:00 [facility] SARS-COV-2 COVID-19 2021-07-23 Completed [facility] PFIZER VACCINE 00:00:00 [facility] SARS-COV-2 COVID-19 2021-07-23 Completed [facility] PFIZER VACCINE 00:00:00 [facility] SARS-COV-2 COVID-19 2021-07-23 Completed [facility] PFIZER VACCINE 00:00:00 [facility] SARS-COV-2 COVID-19 2021-07-23 Completed [facility] PFIZER VACCINE 00:00:00 [facility] SARS-COV-2 COVID-19 2021-07-23 Completed [facility] PFIZER VACCINE 00:00:00 [facility] SARS-COV-2 COVID-19 2021-07-23 Completed [facility] PFIZER VACCINE 00:00:00 [facility] SARS-COV-2 COVID-19 2021-07-23 Completed [facility] PFIZER VACCINE 00:00:00 [facility] SARS-COV-2 COVID-19 2021-07-23 Completed [facility] PFIZER VACCINE 00:00:00 [facility] SARS-COV-2 COVID-19 2021-07-23 Completed [facility] PFIZER VACCINE 00:00:00 [facility] SARS-COV-2 COVID-19 2021-07-23 Completed [facility] PFIZER VACCINE 00:00:00 [facility] SARS-COV-2 COVID-19 2021-07-23 Completed [facility] PFIZER VACCINE 00:00:00 [facility] SARS-COV-2 COVID-19 2021-07-23 Completed [facility] PFIZER VACCINE 00:00:00 [facility] SARS-COV-2 COVID-19 2021-07-23 Completed [facility] PFIZER VACCINE 00:00:00 [facility] SARS-COV-2 COVID-19 2021-07-23 Completed [facility] PFIZER VACCINE 00:00:00 [facility] SARS-COV-2 COVID-19 2021-07-23 Completed [facility] PFIZER VACCINE 00:00:00 [facility] SARS-COV-2 COVID-19 2021-07-23 Completed [facility] PFIZER VACCINE 00:00:00 [facility] SARS-COV-2 COVID-19 2021-07-23 Completed [facility] PFIZER VACCINE 00:00:00 [facility] SARS-COV-2 COVID-19 2021-07-23 Completed [facility] PFIZER VACCINE 00:00:00 [facility] SARS-COV-2 COVID-19 2021-07-23 Completed [facility] PFIZER VACCINE 00:00:00 [facility] SARS-COV-2 COVID-19 2021-07-23 Completed [facility] PFIZER VACCINE 00:00:00 [facility] SARS-COV-2 COVID-19 2021-07-23 Completed [facility] PFIZER VACCINE 00:00:00 [facility] SARS-COV-2 COVID-19 2021-07-23 Completed [facility] PFIZER VACCINE 00:00:00 [facility] SARS-COV-2 COVID-19 2021-07-23 Completed [facility] PFIZER VACCINE 00:00:00 [facility] SARS-COV-2 COVID-19 2021-07-23 Completed [facility] PFIZER VACCINE 00:00:00 [facility] SARS-COV-2 COVID-19 2021-07-23 Completed [facility] PFIZER VACCINE 00:00:00 [facility] SARS-COV-2 COVID-19 2021-07-23 Completed [facility] PFIZER VACCINE 00:00:00 [facility] Influenza Virus 2021-05-27 Completed [facility] Vaccine (3+ yrs) 00:00:00 [facility] Influenza Virus 2021-05-27 Completed [facility] Vaccine (3+ yrs) 00:00:00 [facility] Influenza Virus 2021-05-27 Completed [facility] Vaccine (3+ yrs) 00:00:00 [facility] Influenza Virus 2021-05-27 Completed [facility] Vaccine (3+ yrs) 00:00:00 [facility] Influenza Virus 2021-05-27 Completed [facility] Vaccine (3+ yrs) 00:00:00 [facility] Influenza Virus 2021-05-27 Completed [facility] Vaccine (3+ yrs) 00:00:00 [facility] Influenza Virus 2021-05-27 Completed [facility] Vaccine (3+ yrs) 00:00:00 [facility] Influenza Virus 2021-05-27 Completed [facility] Vaccine (3+ yrs) 00:00:00 [facility] Influenza Virus 2021-05-27 Completed [facility] Vaccine (3+ yrs) 00:00:00 [facility] Influenza Virus 2021-05-27 Completed [facility] Vaccine (3+ yrs) 00:00:00 [facility] Influenza Virus 2021-05-27 Completed [facility] Vaccine (3+ yrs) 00:00:00 [facility] Influenza Virus 2021-05-27 Completed [facility] Vaccine (3+ yrs) 00:00:00 [facility] Influenza Virus 2021-05-27 Completed [facility] Vaccine (3+ yrs) 00:00:00 [facility] Influenza Virus 2021-05-27 Completed [facility] Vaccine (3+ yrs) 00:00:00 [facility] Influenza Virus 2021-05-27 Completed [facility] Vaccine (3+ yrs) 00:00:00 [facility] Influenza Virus 2021-05-27 Completed [facility] Vaccine (3+ yrs) 00:00:00 [facility] Influenza Virus 2021-05-27 Completed [facility] Vaccine (3+ yrs) 00:00:00 [facility] Influenza Virus 2021-05-27 Completed [facility] Vaccine (3+ yrs) 00:00:00 [facility] Influenza Virus 2021-05-27 Completed [facility] Vaccine (3+ yrs) 00:00:00 [facility] Influenza Virus 2021-05-27 Completed [facility] Vaccine (3+ yrs) 00:00:00 [facility] Influenza Virus 2021-05-27 Completed [facility] Vaccine (3+ yrs) 00:00:00 [facility] Influenza Virus 2021-05-27 Completed [facility] Vaccine (3+ yrs) 00:00:00 [facility] Influenza Virus 2021-05-27 Completed [facility] Vaccine (3+ yrs) 00:00:00 [facility] Influenza Virus 2021-05-27 Completed [facility] Vaccine (3+ yrs) 00:00:00 [facility] Influenza Virus 2021-05-27 Completed [facility] Vaccine (3+ yrs) 00:00:00 [facility] Influenza Virus 2021-05-27 Completed [facility] Vaccine (3+ yrs) 00:00:00 [facility] Influenza Virus 2021-05-27 Completed [facility] Vaccine (3+ yrs) 00:00:00 [facility] Influenza Virus 2021-05-27 Completed [facility] Vaccine (3+ yrs) 00:00:00 [facility] Influenza Virus 2021-05-27 Completed [facility] Vaccine (3+ yrs) 00:00:00 [facility] Influenza Virus 2021-05-27 Completed [facility] Vaccine (3+ yrs) 00:00:00 [facility] Influenza Virus 2021-05-27 Completed [facility] Vaccine (3+ yrs) 00:00:00 [facility] Influenza Virus 2021-05-27 Completed [facility] Vaccine (3+ yrs) 00:00:00 [facility] Influenza Virus 2021-05-27 Completed [facility] Vaccine (3+ yrs) 00:00:00 [facility] Influenza Virus 2021-05-27 Completed [facility] Vaccine (3+ yrs) 00:00:00 [facility] Influenza Virus 2021-05-27 Completed [facility] Vaccine (3+ yrs) 00:00:00 [facility] Influenza Virus 2021-05-27 Completed [facility] Vaccine (3+ yrs) 00:00:00 [facility] Influenza Virus 2021-05-27 Completed [facility] Vaccine (3+ yrs) 00:00:00 [facility] Influenza Virus 2021-05-27 Completed [facility] Vaccine (3+ yrs) 00:00:00 [facility] Influenza Virus 2021-05-27 Completed [facility] Vaccine (3+ yrs) 00:00:00 [facility] Influenza Virus 2021-05-27 Completed [facility] Vaccine (3+ yrs) 00:00:00 [facility] Influenza Virus 2021-05-27 Completed [facility] Vaccine (3+ yrs) 00:00:00 [facility] Influenza Virus 2021-05-27 Completed [facility] Vaccine (3+ yrs) 00:00:00 [facility] Influenza Virus 2021-05-27 Completed [facility] Vaccine (3+ yrs) 00:00:00 [facility] Influenza Virus 2021-05-27 Completed [facility] Vaccine (3+ yrs) 00:00:00 [facility] Influenza Virus 2021-05-27 Completed [facility] Vaccine (3+ yrs) 00:00:00 [facility] Influenza Virus 2021-05-27 Completed [facility] Vaccine (3+ yrs) 00:00:00 [facility] Influenza Virus 2021-05-27 Completed [facility] Vaccine (3+ yrs) 00:00:00 [facility] Influenza Virus 2021-05-27 Completed [facility] Vaccine (3+ yrs) 00:00:00 [facility] Influenza Virus 2021-05-27 Completed [facility] Vaccine (3+ yrs) 00:00:00 [facility] Influenza Virus 2021-05-27 Completed [facility] Vaccine (3+ yrs) 00:00:00 [facility] Influenza Virus 2021-05-27 Completed [facility] Vaccine (3+ yrs) 00:00:00 [facility] Influenza Virus 2021-05-27 Completed [facility] Vaccine (3+ yrs) 00:00:00 [facility] Influenza Virus 2021-05-27 Completed [facility] Vaccine (3+ yrs) 00:00:00 [facility] Influenza Virus 2021-05-27 Completed [facility] Vaccine (3+ yrs) 00:00:00 [facility] Influenza Virus 2021-05-27 Completed [facility] Vaccine (3+ yrs) 00:00:00 [facility] Influenza Virus 2021-05-27 Completed [facility] Vaccine (3+ yrs) 00:00:00 [facility] Influenza Virus 2021-05-27 Completed [facility] Vaccine (3+ yrs) 00:00:00 [facility] Influenza Virus 2021-05-27 Completed [facility] Vaccine (3+ yrs) 00:00:00 [facility] Influenza Virus 2021-05-27 Completed [facility] Vaccine (3+ yrs) 00:00:00 [facility] Influenza Virus 2021-05-27 Completed [facility] Vaccine (3+ yrs) 00:00:00 [facility] Influenza Virus 2021-05-27 Completed [facility] Vaccine (3+ yrs) 00:00:00 [facility] Influenza Virus 2021-05-27 Completed [facility] Vaccine (3+ yrs) 00:00:00 [facility] Influenza Virus 2021-05-27 Completed [facility] Vaccine (3+ yrs) 00:00:00 [facility] Influenza Virus 2021-05-27 Completed [facility] Vaccine (3+ yrs) 00:00:00 [facility] Influenza Virus 2021-05-27 Completed [facility] Vaccine (3+ yrs) 00:00:00 [facility] Influenza Virus 2021-05-27 Completed [facility] Vaccine (3+ yrs) 00:00:00 [facility] Influenza Virus 2021-05-27 Completed [facility] Vaccine (3+ yrs) 00:00:00 [facility] Influenza Virus 2021-05-27 Completed [facility] Vaccine (3+ yrs) 00:00:00 [facility] Influenza Virus 2021-05-27 Completed [facility] Vaccine (3+ yrs) 00:00:00 [facility] SARS-COV-2 COVID-19 2020-12-13 Completed [facility] PFIZER VACCINE 00:00:00 [facility] SARS-COV-2 COVID-19 2020-12-13 Completed [facility] PFIZER VACCINE 00:00:00 [facility] SARS-COV-2 COVID-19 2020-12-13 Completed [facility] PFIZER VACCINE 00:00:00 [facility] SARS-COV-2 COVID-19 2020-12-13 Completed [facility] PFIZER VACCINE 00:00:00 [facility] SARS-COV-2 COVID-19 2020-12-13 Completed [facility] PFIZER VACCINE 00:00:00 [facility] SARS-COV-2 COVID-19 2020-12-13 Completed [facility] PFIZER VACCINE 00:00:00 [facility] SARS-COV-2 COVID-19 2020-12-13 Completed [facility] PFIZER VACCINE 00:00:00 [facility] SARS-COV-2 COVID-19 2020-12-13 Completed [facility] PFIZER VACCINE 00:00:00 [facility] SARS-COV-2 COVID-19 2020-12-13 Completed [facility] PFIZER VACCINE 00:00:00 [facility] SARS-COV-2 COVID-19 2020-12-13 Completed [facility] PFIZER VACCINE 00:00:00 [facility] SARS-COV-2 COVID-19 2020-12-13 Completed [facility] PFIZER VACCINE 00:00:00 [facility] SARS-COV-2 COVID-19 2020-12-13 Completed [facility] PFIZER VACCINE 00:00:00 [facility] SARS-COV-2 COVID-19 2020-12-13 Completed [facility] PFIZER VACCINE 00:00:00 [facility] SARS-COV-2 COVID-19 2020-12-13 Completed [facility] PFIZER VACCINE 00:00:00 [facility] SARS-COV-2 COVID-19 2020-12-13 Completed [facility] PFIZER VACCINE 00:00:00 [facility] SARS-COV-2 COVID-19 2020-12-13 Completed [facility] PFIZER VACCINE 00:00:00 [facility] SARS-COV-2 COVID-19 2020-12-13 Completed [facility] PFIZER VACCINE 00:00:00 [facility] SARS-COV-2 COVID-19 2020-12-13 Completed [facility] PFIZER VACCINE 00:00:00 [facility] SARS-COV-2 COVID-19 2020-12-13 Completed [facility] PFIZER VACCINE 00:00:00 [facility] SARS-COV-2 COVID-19 2020-12-13 Completed [facility] PFIZER VACCINE 00:00:00 [facility] SARS-COV-2 COVID-19 2020-12-13 Completed [facility] PFIZER VACCINE 00:00:00 [facility] SARS-COV-2 COVID-19 2020-12-13 Completed [facility] PFIZER VACCINE 00:00:00 [facility] SARS-COV-2 COVID-19 2020-12-13 Completed [facility] PFIZER VACCINE 00:00:00 [facility] SARS-COV-2 COVID-19 2020-12-13 Completed [facility] PFIZER VACCINE 00:00:00 [facility] SARS-COV-2 COVID-19 2020-12-13 Completed [facility] PFIZER VACCINE 00:00:00 [facility] SARS-COV-2 COVID-19 2020-12-13 Completed [facility] PFIZER VACCINE 00:00:00 [facility] SARS-COV-2 COVID-19 2020-12-13 Completed [facility] PFIZER VACCINE 00:00:00 [facility] SARS-COV-2 COVID-19 2020-12-13 Completed [facility] PFIZER VACCINE 00:00:00 [facility] SARS-COV-2 COVID-19 2020-12-13 Completed [facility] PFIZER VACCINE 00:00:00 [facility] SARS-COV-2 COVID-19 2020-12-13 Completed [facility] PFIZER VACCINE 00:00:00 [facility] SARS-COV-2 COVID-19 2020-12-13 Completed [facility] PFIZER VACCINE 00:00:00 [facility] SARS-COV-2 COVID-19 2020-12-13 Completed [facility] PFIZER VACCINE 00:00:00 [facility] SARS-COV-2 COVID-19 2020-12-13 Completed [facility] PFIZER VACCINE 00:00:00 [facility] SARS-COV-2 COVID-19 2020-12-13 Completed [facility] PFIZER VACCINE 00:00:00 [facility] SARS-COV-2 COVID-19 2020-12-13 Completed [facility] PFIZER VACCINE 00:00:00 [facility] SARS-COV-2 COVID-19 2020-12-13 Completed [facility] PFIZER VACCINE 00:00:00 [facility] SARS-COV-2 COVID-19 2020-12-13 Completed [facility] PFIZER VACCINE 00:00:00 [facility] SARS-COV-2 COVID-19 2020-12-13 Completed [facility] PFIZER VACCINE 00:00:00 [facility] SARS-COV-2 COVID-19 2020-12-13 Completed [facility] PFIZER VACCINE 00:00:00 [facility] SARS-COV-2 COVID-19 2020-12-13 Completed [facility] PFIZER VACCINE 00:00:00 [facility] SARS-COV-2 COVID-19 2020-12-13 Completed [facility] PFIZER VACCINE 00:00:00 [facility] SARS-COV-2 COVID-19 2020-12-13 Completed [facility] PFIZER VACCINE 00:00:00 [facility] SARS-COV-2 COVID-19 2020-12-13 Completed [facility] PFIZER VACCINE 00:00:00 [facility] SARS-COV-2 COVID-19 2020-12-13 Completed [facility] PFIZER VACCINE 00:00:00 [facility] SARS-COV-2 COVID-19 2020-12-13 Completed [facility] PFIZER VACCINE 00:00:00 [facility] SARS-COV-2 COVID-19 2020-12-13 Completed [facility] PFIZER VACCINE 00:00:00 [facility] SARS-COV-2 COVID-19 2020-12-13 Completed [facility] PFIZER VACCINE 00:00:00 [facility] SARS-COV-2 COVID-19 2020-12-13 Completed [facility] PFIZER VACCINE 00:00:00 [facility] SARS-COV-2 COVID-19 2020-12-13 Completed [facility] PFIZER VACCINE 00:00:00 [facility] SARS-COV-2 COVID-19 2020-12-13 Completed [facility] PFIZER VACCINE 00:00:00 [facility] SARS-COV-2 COVID-19 2020-12-13 Completed [facility] PFIZER VACCINE 00:00:00 [facility] SARS-COV-2 COVID-19 2020-12-13 Completed [facility] PFIZER VACCINE 00:00:00 [facility] SARS-COV-2 COVID-19 2020-12-13 Completed [facility] PFIZER VACCINE 00:00:00 [facility] SARS-COV-2 COVID-19 2020-12-13 Completed [facility] PFIZER VACCINE 00:00:00 [facility] SARS-COV-2 COVID-19 2020-12-13 Completed [facility] PFIZER VACCINE 00:00:00 [facility] SARS-COV-2 COVID-19 2020-12-13 Completed [facility] PFIZER VACCINE 00:00:00 [facility] SARS-COV-2 COVID-19 2020-12-13 Completed [facility] PFIZER VACCINE 00:00:00 [facility] SARS-COV-2 COVID-19 2020-12-13 Completed [facility] PFIZER VACCINE 00:00:00 [facility] SARS-COV-2 COVID-19 2020-12-13 Completed [facility] PFIZER VACCINE 00:00:00 [facility] SARS-COV-2 COVID-19 2020-12-13 Completed [facility] PFIZER VACCINE 00:00:00 [facility] SARS-COV-2 COVID-19 2020-12-13 Completed [facility] PFIZER VACCINE 00:00:00 [facility] SARS-COV-2 COVID-19 2020-12-13 Completed [facility] PFIZER VACCINE 00:00:00 [facility] SARS-COV-2 COVID-19 2020-12-13 Completed [facility] PFIZER VACCINE 00:00:00 [facility] SARS-COV-2 COVID-19 2020-12-13 Completed [facility] PFIZER VACCINE 00:00:00 [facility] SARS-COV-2 COVID-19 2020-12-13 Completed [facility] PFIZER VACCINE 00:00:00 [facility] SARS-COV-2 COVID-19 2020-12-13 Completed [facility] PFIZER VACCINE 00:00:00 [facility] SARS-COV-2 COVID-19 2020-12-13 Completed [facility] PFIZER VACCINE 00:00:00 [facility] SARS-COV-2 COVID-19 2020-12-13 Completed [facility] PFIZER VACCINE 00:00:00 [facility] SARS-COV-2 COVID-19 2020-12-13 Completed [facility] PFIZER VACCINE 00:00:00 [facility] SARS-COV-2 COVID-19 2020-11-22 Completed [facility] PFIZER VACCINE 00:00:00 [facility] SARS-COV-2 COVID-19 2020-11-22 Completed [facility] PFIZER VACCINE 00:00:00 [facility] SARS-COV-2 COVID-19 2020-11-22 Completed [facility] PFIZER VACCINE 00:00:00 [facility] SARS-COV-2 COVID-19 2020-11-22 Completed [facility] PFIZER VACCINE 00:00:00 [facility] SARS-COV-2 COVID-19 2020-11-22 Completed [facility] PFIZER VACCINE 00:00:00 [facility] SARS-COV-2 COVID-19 2020-11-22 Completed [facility] PFIZER VACCINE 00:00:00 [facility] SARS-COV-2 COVID-19 2020-11-22 Completed [facility] PFIZER VACCINE 00:00:00 [facility] SARS-COV-2 COVID-19 2020-11-22 Completed [facility] PFIZER VACCINE 00:00:00 [facility] SARS-COV-2 COVID-19 2020-11-22 Completed [facility] PFIZER VACCINE 00:00:00 [facility] SARS-COV-2 COVID-19 2020-11-22 Completed [facility] PFIZER VACCINE 00:00:00 [facility] SARS-COV-2 COVID-19 2020-11-22 Completed [facility] PFIZER VACCINE 00:00:00 [facility] SARS-COV-2 COVID-19 2020-11-22 Completed [facility] PFIZER VACCINE 00:00:00 [facility] SARS-COV-2 COVID-19 2020-11-22 Completed [facility] PFIZER VACCINE 00:00:00 [facility] SARS-COV-2 COVID-19 2020-11-22 Completed [facility] PFIZER VACCINE 00:00:00 [facility] SARS-COV-2 COVID-19 2020-11-22 Completed [facility] PFIZER VACCINE 00:00:00 [facility] SARS-COV-2 COVID-19 2020-11-22 Completed [facility] PFIZER VACCINE 00:00:00 [facility] SARS-COV-2 COVID-19 2020-11-22 Completed [facility] PFIZER VACCINE 00:00:00 [facility] SARS-COV-2 COVID-19 2020-11-22 Completed [facility] PFIZER VACCINE 00:00:00 [facility] SARS-COV-2 COVID-19 2020-11-22 Completed [facility] PFIZER VACCINE 00:00:00 [facility] SARS-COV-2 COVID-19 2020-11-22 Completed [facility] PFIZER VACCINE 00:00:00 [facility] SARS-COV-2 COVID-19 2020-11-22 Completed [facility] PFIZER VACCINE 00:00:00 [facility] SARS-COV-2 COVID-19 2020-11-22 Completed [facility] PFIZER VACCINE 00:00:00 [facility] SARS-COV-2 COVID-19 2020-11-22 Completed [facility] PFIZER VACCINE 00:00:00 [facility] SARS-COV-2 COVID-19 2020-11-22 Completed [facility] PFIZER VACCINE 00:00:00 [facility] SARS-COV-2 COVID-19 2020-11-22 Completed [facility] PFIZER VACCINE 00:00:00 [facility] SARS-COV-2 COVID-19 2020-11-22 Completed [facility] PFIZER VACCINE 00:00:00 [facility] SARS-COV-2 COVID-19 2020-11-22 Completed [facility] PFIZER VACCINE 00:00:00 [facility] SARS-COV-2 COVID-19 2020-11-22 Completed [facility] PFIZER VACCINE 00:00:00 [facility] SARS-COV-2 COVID-19 2020-11-22 Completed [facility] PFIZER VACCINE 00:00:00 [facility] SARS-COV-2 COVID-19 2020-11-22 Completed [facility] PFIZER VACCINE 00:00:00 [facility] SARS-COV-2 COVID-19 2020-11-22 Completed [facility] PFIZER VACCINE 00:00:00 [facility] SARS-COV-2 COVID-19 2020-11-22 Completed [facility] PFIZER VACCINE 00:00:00 [facility] SARS-COV-2 COVID-19 2020-11-22 Completed [facility] PFIZER VACCINE 00:00:00 [facility] SARS-COV-2 COVID-19 2020-11-22 Completed [facility] PFIZER VACCINE 00:00:00 [facility] SARS-COV-2 COVID-19 2020-11-22 Completed [facility] PFIZER VACCINE 00:00:00 [facility] SARS-COV-2 COVID-19 2020-11-22 Completed [facility] PFIZER VACCINE 00:00:00 [facility] SARS-COV-2 COVID-19 2020-11-22 Completed [facility] PFIZER VACCINE 00:00:00 [facility] SARS-COV-2 COVID-19 2020-11-22 Completed [facility] PFIZER VACCINE 00:00:00 [facility] SARS-COV-2 COVID-19 2020-11-22 Completed [facility] PFIZER VACCINE 00:00:00 [facility] SARS-COV-2 COVID-19 2020-11-22 Completed [facility] PFIZER VACCINE 00:00:00 [facility] SARS-COV-2 COVID-19 2020-11-22 Completed [facility] PFIZER VACCINE 00:00:00 [facility] SARS-COV-2 COVID-19 2020-11-22 Completed [facility] PFIZER VACCINE 00:00:00 [facility] SARS-COV-2 COVID-19 2020-11-22 Completed [facility] PFIZER VACCINE 00:00:00 [facility] SARS-COV-2 COVID-19 2020-11-22 Completed [facility] PFIZER VACCINE 00:00:00 [facility] SARS-COV-2 COVID-19 2020-11-22 Completed [facility] PFIZER VACCINE 00:00:00 [facility] SARS-COV-2 COVID-19 2020-11-22 Completed [facility] PFIZER VACCINE 00:00:00 [facility] SARS-COV-2 COVID-19 2020-11-22 Completed [facility] PFIZER VACCINE 00:00:00 [facility] SARS-COV-2 COVID-19 2020-11-22 Completed [facility] PFIZER VACCINE 00:00:00 [facility] SARS-COV-2 COVID-19 2020-11-22 Completed [facility] PFIZER VACCINE 00:00:00 [facility] SARS-COV-2 COVID-19 2020-11-22 Completed [facility] PFIZER VACCINE 00:00:00 [facility] SARS-COV-2 COVID-19 2020-11-22 Completed [facility] PFIZER VACCINE 00:00:00 [facility] SARS-COV-2 COVID-19 2020-11-22 Completed [facility] PFIZER VACCINE 00:00:00 [facility] SARS-COV-2 COVID-19 2020-11-22 Completed [facility] PFIZER VACCINE 00:00:00 [facility] SARS-COV-2 COVID-19 2020-11-22 Completed [facility] PFIZER VACCINE 00:00:00 [facility] SARS-COV-2 COVID-19 2020-11-22 Completed [facility] PFIZER VACCINE 00:00:00 [facility] SARS-COV-2 COVID-19 2020-11-22 Completed [facility] PFIZER VACCINE 00:00:00 [facility] SARS-COV-2 COVID-19 2020-11-22 Completed [facility] PFIZER VACCINE 00:00:00 [facility] SARS-COV-2 COVID-19 2020-11-22 Completed [facility] PFIZER VACCINE 00:00:00 [facility] SARS-COV-2 COVID-19 2020-11-22 Completed [facility] PFIZER VACCINE 00:00:00 [facility] SARS-COV-2 COVID-19 2020-11-22 Completed [facility] PFIZER VACCINE 00:00:00 [facility] SARS-COV-2 COVID-19 2020-11-22 Completed [facility] PFIZER VACCINE 00:00:00 [facility] SARS-COV-2 COVID-19 2020-11-22 Completed [facility] PFIZER VACCINE 00:00:00 [facility] SARS-COV-2 COVID-19 2020-11-22 Completed [facility] PFIZER VACCINE 00:00:00 [facility] SARS-COV-2 COVID-19 2020-11-22 Completed [facility] PFIZER VACCINE 00:00:00 [facility] SARS-COV-2 COVID-19 2020-11-22 Completed [facility] PFIZER VACCINE 00:00:00 [facility] SARS-COV-2 COVID-19 2020-11-22 Completed [facility] PFIZER VACCINE 00:00:00 [facility] SARS-COV-2 COVID-19 2020-11-22 Completed [facility] PFIZER VACCINE 00:00:00 [facility] SARS-COV-2 COVID-19 2020-11-22 Completed [facility] PFIZER VACCINE 00:00:00 [facility] SARS-COV-2 COVID-19 2020-11-22 Completed [facility] PFIZER VACCINE 00:00:00 [facility] Influenza Virus 2020-05-27 Completed Univers[facility] [...] VACCINE 2019-08-10 Completed [facility] 00:00:00 [facility] TDAP 2019-08-10 Completed [facility] 00:00:00 [facility] Pneumococcal 2019-08-10 Completed [facility] o f Polysaccharide, 00:00:00 [facility] PPSV23 (PNEUMOVAX) [facility] TDAP (ADACEL) VACCINE 2019-08-10 Completed [facility] 00:00:00 [facility] TDAP 2019-08-10 Completed [facility] 00:00:00 [facility] Pneumococcal 2019-08-10 Completed [facility] f Polysaccharide, 00:00:00 [facility] PPSV23 (PNEUMOVAX) [facility] TDAP (ADACEL) VACCINE 2019-08-10 Completed [facility] 00:00:00 [facility] TDAP 2019-08-10 Completed [facility] 00:00:00 [facility] Pneumococcal 2019-08-10 Completed [facility] o f Polysaccharide, 00:00:00 [facility] PPSV23 (PNEUMOVAX) [facility] TDAP (ADACEL) VACCINE 2019-08-10 Completed [facility] 00:00:00 [facility] TDAP 2019-08-10 Completed [facility] 00:00:00 [facility] Pneumococcal 2019-08-10 Completed [facility] o f Polysaccharide, 00:00:00 [facility] PPSV23 (PNEUMOVAX) [facility] TDAP (ADACEL) VACCINE 2019-08-10 Completed [facility] 00:00:00 [facility] TDAP 2019-08-10 Completed [facility] 00:00:00 [facility] Pneumococcal 2019-08-10 Completed [facility] Polysaccharide, 00:00:00 [facility] PPSV23 (PNEUMOVAX) [facility] TDAP (ADACEL) VACCINE 2019-08-10 Completed [facility] 00:00:00 [facility] TDAP 2019-08-10 Completed [facility] 00:00:00 [facility] Pneumococcal 2019-08-10 Completed [facility] Polysaccharide, 00:00:00 [facility] PPSV23 (PNEUMOVAX) [facility] TDAP (ADACEL) VACCINE 2019-08-10 Completed [facility] 00:00:00 [facility] TDAP 2019-08-10 Completed [facility] 00:00:00 [facility] Pneumococcal 2019-08-10 Completed [facility] Polysaccharide, 00:00:00 [facility] PPSV23 (PNEUMOVAX) [facility] TDAP (ADACEL) VACCINE 2019-08-10 Completed [facility] 00:00:00 [facility] TDAP 2019-08-10 Completed [facility] 00:00:00 [facility] Pneumococcal 2019-08-10 Completed [facility] o f Polysaccharide, 00:00:00 [facility] PPSV23 (PNEUMOVAX) [facility] TDAP (ADACEL) VACCINE 2019-08-10 Completed [facility] 00:00:00 [facility] TDAP 2019-08-10 Completed [facility] 00:00:00 [facility] Pneumococcal 2019-08-10 Completed [facility] o f Polysaccharide, 00:00:00 [facility] PPSV23 (PNEUMOVAX) [facility] TDAP (ADACEL) VACCINE 2019-08-10 Completed [facility] 00:00:00 [facility] TDAP 2019-08-10 Completed [facility] 00:00:00 [facility] Pneumococcal 2019-08-10 Completed [facility] o f Polysaccharide, 00:00:00 [facility] PPSV23 (PNEUMOVAX) [facility] TDAP (ADACEL) VACCINE 2019-08-10 Completed [facility] 00:00:00 [facility] TDAP 2019-08-10 Completed [facility] 00:00:00 [facility] Pneumococcal 2019-08-10 Completed [facility] o f Polysaccharide, 00:00:00 [facility] PPSV23 (PNEUMOVAX) [facility] TDAP (ADACEL) VACCINE 2019-08-10 Completed [facility] 00:00:00 [facility] TDAP 2019-08-10 Completed [facility] 00:00:00 [facility] Pneumococcal 2019-08-10 Completed [facility] Polysaccharide, 00:00:00 [facility] PPSV23 (PNEUMOVAX) [facility] TDAP (ADACEL) VACCINE 2019-08-10 Completed [facility] 00:00:00 [facility] TDAP 2019-08-10 Completed [facility] 00:00:00 [facility] Pneumococcal 2019-08-10 Completed [facility] f Polysaccharide, 00:00:00 [facility] PPSV23 (PNEUMOVAX) [facility] TDAP (ADACEL) VACCINE 2019-08-10 Completed [facility] 00:00:00 [facility] TDAP 2019-08-10 Completed [facility] 00:00:00 [facility] Pneumococcal 2019-08-10 Completed [facility] Polysaccharide, 00:00:00 [facility] PPSV23 (PNEUMOVAX) [facility] TDAP (ADACEL) VACCINE 2019-08-10 Completed [facility] 00:00:00 [facility] TDAP 2019-08-10 Completed [facility] 00:00:00 [facility] Pneumococcal 2019-08-10 Completed [facility] o f Polysaccharide, 00:00:00 [facility] PPSV23 (PNEUMOVAX) [facility] TDAP (ADACEL) VACCINE 2019-08-10 Completed [facility] 00:00:00 [facility] TDAP 2019-08-10 Completed [facility] of 00:00:00 [facility] Pneumococcal 2019-08-10 Completed [facility] o f Polysaccharide, 00:00:00 [facility] PPSV23 (PNEUMOVAX) [facility] TDAP (ADACEL) VACCINE 2019-08-10 Completed [facility] 00:00:00 [facility] TDAP 2019-08-10 Completed [facility] 00:00:00 [facility] Pneumococcal 2019-08-10 Completed [facility] o f Polysaccharide, 00:00:00 [facility] PPSV23 (PNEUMOVAX) [facility] TDAP (ADACEL) VACCINE 2019-08-10 Completed [facility] 00:00:00 [facility] TDAP 2019-08-10 Completed [facility] of 00:00:00 [facility] Pneumococcal 2019-08-10 Completed [facility] o f Polysaccharide, 00:00:00 [facility] PPSV23 (PNEUMOVAX) [facility] TDAP (ADACEL) VACCINE 2019-08-10 Completed [facility] 00:00:00 [facility] TDAP 2019-08-10 Completed [facility] 00:00:00 [facility] Pneumococcal 2019-08-10 Completed [facility] o f Polysaccharide, 00:00:00 [facility] PPSV23 (PNEUMOVAX) [facility] TDAP (ADACEL) VACCINE 2019-08-10 Completed [facility] 00:00:00 [facility] TDAP 2019-08-10 Completed [facility] 00:00:00 [facility] Pneumococcal 2019-08-10 Completed [facility] o [facility] Polysaccharide, 00:00:00 [facility] PPSV23 (PNEUMOVAX) [facility] TDAP (ADACEL) VACCINE 2019-08-10 Completed [facility] 00:00:00 [facility] TDAP 2019-08-10 Completed [facility] 00:00:00 [facility] Pneumococcal 2019-08-10 Completed [facility] o f Polysaccharide, 00:00:00 [facility] PPSV23 (PNEUMOVAX) [facility] TDAP (ADACEL) VACCINE 2019-08-10 Completed [facility] 00:00:00 [facility] TDAP 2019-08-10 Completed [facility] 00:00:00 [facility] Pneumococcal 2019-08-10 Completed [facility] o f Polysaccharide, 00:00:00 [facility] PPSV23 (PNEUMOVAX) [facility] TDAP (ADACEL) VACCINE 2019-08-10 Completed [facility] 00:00:00 [facility] TDAP 2019-08-10 Completed [facility] 00:00:00 [facility] Pneumococcal 2019-08-10 Completed [facility] o f Polysaccharide, 00:00:00 [facility] PPSV23 (PNEUMOVAX) [facility] TDAP (ADACEL) VACCINE 2019-08-10 Completed [facility] 00:00:00 [facility] TDAP 2019-08-10 Completed [facility] 00:00:00 [facility] Pneumococcal 2019-08-10 Completed [facility] Polysaccharide, 00:00:00 [facility] PPSV23 (PNEUMOVAX) [facility] TDAP (ADACEL) VACCINE 2019-08-10 Completed [facility] 00:00:00 [facility] TDAP 2019-08-10 Completed [facility] 00:00:00 [facility] Pneumococcal 2019-08-10 Completed [facility] f Polysaccharide, 00:00:00 [facility] PPSV23 (PNEUMOVAX) [facility] TDAP (ADACEL) VACCINE 2019-08-10 Completed [facility] 00:00:00 [facility] TDAP 2019-08-10 Completed [facility] 00:00:00 [facility] Pneumococcal 2019-08-10 Completed [facility] o f Polysaccharide, 00:00:00 [facility] PPSV23 (PNEUMOVAX) [facility] TDAP (ADACEL) VACCINE 2019-08-10 Completed [facility] 00:00:00 [facility] TDAP 2019-08-10 Completed [facility] 00:00:00 [facility] Pneumococcal 2019-08-10 Completed [facility] o f Polysaccharide, 00:00:00 [facility] PPSV23 (PNEUMOVAX) [facility] TDAP (ADACEL) VACCINE 2019-08-10 Completed [facility] 00:00:00 [facility] TDAP 2019-08-10 Completed [facility] 00:00:00 [facility] Pneumococcal 2019-08-10 Completed [facility] o f Polysaccharide, 00:00:00 [facility] PPSV23 (PNEUMOVAX) [facility] TDAP (ADACEL) VACCINE 2019-08-10 Completed [facility] 00:00:00 [facility] TDAP 2019-08-10 Completed [facility] 00:00:00 [facility] Pneumococcal 2019-08-10 Completed [facility] o f Polysaccharide, 00:00:00 [facility] PPSV23 (PNEUMOVAX) [facility] TDAP (ADACEL) VACCINE 2019-08-10 Completed [facility] 00:00:00 [facility] TDAP 2019-08-10 Completed [facility] 00:00:00 [facility] Pneumococcal 2019-08-10 Completed [facility] o f Polysaccharide, 00:00:00 [facility] PPSV23 (PNEUMOVAX) [facility] TDAP (ADACEL) VACCINE 2019-08-10 Completed [facility] 00:00:00 [facility] TDAP 2019-08-10 Completed [facility] 00:00:00 [facility] Pneumococcal 2019-08-10 Completed [facility] o f Polysaccharide, 00:00:00 [facility] PPSV23 (PNEUMOVAX) [facility] TDAP (ADACEL) VACCINE 2019-08-10 Completed [facility] 00:00:00 [facility] TDAP 2019-08-10 Completed [facility] 00:00:00 [facility] Pneumococcal 2019-08-10 Completed [facility] o f Polysaccharide, 00:00:00 [facility] PPSV23 (PNEUMOVAX) [facility] TDAP (ADACEL) VACCINE 2019-08-10 Completed [facility] 00:00:00 [facility] TDAP 2019-08-10 Completed [facility] 00:00:00 [facility] Pneumococcal 2019-08-10 Completed [facility] o f Polysaccharide, 00:00:00 [facility] PPSV23 (PNEUMOVAX) [facility] TDAP (ADACEL) VACCINE 2019-08-10 Completed [facility] 00:00:00 [facility] TDAP 2019-08-10 Completed [facility] 00:00:00 [facility] Pneumococcal 2019-08-10 Completed [facility] o f Polysaccharide, 00:00:00 [facility] PPSV23 (PNEUMOVAX) [facility] TDAP (ADACEL) VACCINE 2019-08-10 Completed [facility] 00:00:00 [facility] TDAP 2019-08-10 Completed [facility] 00:00:00 [facility] Pneumococcal 2019-08-10 Completed [facility] o f Polysaccharide, 00:00:00 [facility] PPSV23 (PNEUMOVAX) [facility] TDAP (ADACEL) VACCINE 2019-08-10 Completed [facility] 00:00:00 [facility] TDAP 2019-08-10 Completed [facility] 00:00:00 [facility] Pneumococcal 2019-08-10 Completed [facility] o f Polysaccharide, 00:00:00 [facility] PPSV23 (PNEUMOVAX) [facility] TDAP (ADACEL) VACCINE 2019-08-10 Completed [facility] 00:00:00 [facility] TDAP 2019-08-10 Completed [facility] 00:00:00 [facility] Pneumococcal 2019-08-10 Completed [facility] o f Polysaccharide, 00:00:00 [facility] PPSV23 (PNEUMOVAX) [facility] TDAP (ADACEL) VACCINE 2019-08-10 Completed [facility] 00:00:00 [facility] TDAP 2019-08-10 Completed [facility] 00:00:00 [facility] Pneumococcal 2019-08-10 Completed [facility] o f Polysaccharide, 00:00:00 [facility] PPSV23 (PNEUMOVAX) [facility] TDAP (ADACEL) VACCINE 2019-08-10 Completed [facility] 00:00:00 [facility] TDAP 2019-08-10 Completed [facility] 00:00:00 [facility] Pneumococcal 2019-08-10 Completed [facility] o f Polysaccharide, 00:00:00 [facility] PPSV23 (PNEUMOVAX) [facility] TDAP (ADACEL) VACCINE 2019-08-10 Completed [facility] 00:00:00 [facility] TDAP 2019-08-10 Completed [facility] 00:00:00 [facility] Pneumococcal 2019-08-10 Completed [facility] o f Polysaccharide, 00:00:00 [facility] PPSV23 (PNEUMOVAX) [facility] TDAP (ADACEL) VACCINE 2019-08-10 Completed [facility] 00:00:00 [facility] TDAP 2019-08-10 Completed [facility] 00:00:00 [facility] Pneumococcal 2019-08-10 Completed [facility] o f Polysaccharide, 00:00:00 [facility] PPSV23 (PNEUMOVAX) [facility] TDAP (ADACEL) VACCINE 2019-08-10 Completed [facility] 00:00:00 [facility] TDAP 2019-08-10 Completed [facility] 00:00:00 [facility] Pneumococcal 2019-08-10 Completed [facility] o f Polysaccharide, 00:00:00 [facility] PPSV23 (PNEUMOVAX) [facility] TDAP (ADACEL) VACCINE 2019-08-10 Completed [facility] 00:00:00 [facility] TDAP 2019-08-10 Completed [facility] 00:00:00 [facility] Pneumococcal 2019-08-10 Completed [facility] o f Polysaccharide, 00:00:00 [facility] PPSV23 (PNEUMOVAX) [facility] TDAP (ADACEL) VACCINE 2019-08-10 Completed [facility] 00:00:00 [facility] TDAP 2019-08-10 Completed [facility] 00:00:00 [facility] Pneumococcal 2019-08-10 Completed [facility] o f Polysaccharide, 00:00:00 [facility] PPSV23 (PNEUMOVAX) [facility] TDAP (ADACEL) VACCINE 2019-08-10 Completed [facility] 00:00:00 [facility] TDAP 2019-08-10 Completed [facility] 00:00:00 [facility] Pneumococcal 2019-08-10 Completed [facility] o f Polysaccharide, 00:00:00 [facility] PPSV23 (PNEUMOVAX) [facility] TDAP (ADACEL) VACCINE 2019-08-10 Completed [facility] 00:00:00 [facility] TDAP 2019-08-10 Completed [facility] 00:00:00 [facility] Pneumococcal 2019-08-10 Completed [facility] o f Polysaccharide, 00:00:00 [facility] PPSV23 (PNEUMOVAX) [facility] TDAP (ADACEL) VACCINE 2019-08-10 Completed [facility] 00:00:00 [facility] TDAP 2019-08-10 Completed [facility] 00:00:00 [facility] Pneumococcal 2019-08-10 Completed [facility] o f Polysaccharide, 00:00:00 [facility] PPSV23 (PNEUMOVAX) [facility] TDAP (ADACEL) VACCINE 2019-08-10 Completed [facility] 00:00:00 [facility] TDAP 2019-08-10 Completed [facility] 00:00:00 [facility] Pneumococcal 2019-08-10 Completed [facility] o f Polysaccharide, 00:00:00 [facility] PPSV23 (PNEUMOVAX) [facility] TDAP (ADACEL) VACCINE 2019-08-10 Completed [facility] 00:00:00 [facility] TDAP 2019-08-10 Completed [facility] 00:00:00 [facility] Pneumococcal 2019-08-10 Completed [facility] o f Polysaccharide, 00:00:00 [facility] PPSV23 (PNEUMOVAX) [facility] TDAP (ADACEL) VACCINE 2019-08-10 Completed [facility] 00:00:00 [facility] TDAP 2019-08-10 Completed [facility] 00:00:00 [facility] Pneumococcal 2019-08-10 Completed [facility] o f Polysaccharide, 00:00:00 [facility] PPSV23 (PNEUMOVAX) [facility] TDAP (ADACEL) VACCINE 2019-08-10 Completed [facility] 00:00:00 [facility] TDAP 2019-08-10 Completed [facility] 00:00:00 [facility] Pneumococcal 2019-08-10 Completed [facility] o f Polysaccharide, 00:00:00 [facility] PPSV23 (PNEUMOVAX) [facility] TDAP (ADACEL) VACCINE 2019-08-10 Completed [facility] 00:00:00 [facility] TDAP 2019-08-10 Completed [facility] 00:00:00 [facility] Pneumococcal 2019-08-10 Completed [facility] o f Polysaccharide, 00:00:00 [facility] PPSV23 (PNEUMOVAX) [facility] TDAP (ADACEL) VACCINE 2019-08-10 Completed [facility] 00:00:00 [facility] TDAP 2019-08-10 Completed [facility] 00:00:00 [facility] Pneumococcal 2019-08-10 Completed [facility] o f Polysaccharide, 00:00:00 [facility] PPSV23 (PNEUMOVAX) [facility] TDAP (ADACEL) VACCINE 2019-08-10 Completed [facility] 00:00:00 [facility] TDAP 2019-08-10 Completed [facility] 00:00:00 [facility] Pneumococcal 2019-08-10 Completed [facility] o f Polysaccharide, 00:00:00 [facility] PPSV23 (PNEUMOVAX) [facility] TDAP (ADACEL) VACCINE 2019-08-10 Completed [facility] 00:00:00 [facility] TDAP 2019-08-10 Completed [facility] 00:00:00 [facility] Pneumococcal 2019-08-10 Completed [facility] o f Polysaccharide, 00:00:00 [facility] PPSV23 (PNEUMOVAX) [facility] TDAP (ADACEL) VACCINE 2019-08-10 Completed [facility] 00:00:00 [facility] TDAP 2019-08-10 Completed [facility] 00:00:00 [facility] Pneumococcal 2019-08-10 Completed [facility] o f Polysaccharide, 00:00:00 [facility] PPSV23 (PNEUMOVAX) [facility] TDAP (ADACEL) VACCINE 2019-08-10 Completed [facility] 00:00:00 [facility] TDAP 2019-08-10 Completed [facility] 00:00:00 [facility] Pneumococcal 2019-08-10 Completed [facility] o f Polysaccharide, 00:00:00 [facility] PPSV23 (PNEUMOVAX) [facility] TDAP (ADACEL) VACCINE 2019-08-10 Completed [facility] 00:00:00 [facility] TDAP 2019-08-10 Completed [facility] 00:00:00 [facility] Pneumococcal 2019-08-10 Completed [facility] o f Polysaccharide, 00:00:00 [facility] PPSV23 (PNEUMOVAX) [facility] TDAP (ADACEL) VACCINE 2019-08-10 Completed [facility] 00:00:00 [facility] TDAP 2019-08-10 Completed [facility] 00:00:00 [facility] Pneumococcal 2019-08-10 Completed [facility] o f Polysaccharide, 00:00:00 [facility] PPSV23 (PNEUMOVAX) [facility] TDAP (ADACEL) VACCINE 2019-08-10 Completed [facility] 00:00:00 [facility] TDAP 2019-08-10 Completed [facility] 00:00:00 [facility] Pneumococcal 2019-08-10 Completed [facility] o f Polysaccharide, 00:00:00 [facility] PPSV23 (PNEUMOVAX) [facility] TDAP (ADACEL) VACCINE 2019-08-10 Completed [facility] 00:00:00 [facility] TDAP 2019-08-10 Completed [facility] 00:00:00 [facility] Pneumococcal 2019-08-10 Completed [facility] o f Polysaccharide, 00:00:00 [facility] PPSV23 (PNEUMOVAX) [facility] TDAP (ADACEL) VACCINE 2019-08-10 Completed [facility] 00:00:00 [facility] TDAP 2019-08-10 Completed [facility] 00:00:00 [facility] Pneumococcal 2019-08-10 Completed [facility] o f Polysaccharide, 00:00:00 [facility] PPSV23 (PNEUMOVAX) [facility] TDAP (ADACEL) VACCINE 2019-08-10 Completed [facility] 00:00:00 [facility] TDAP 2019-08-10 Completed [facility] 00:00:00 [facility] Pneumococcal 2019-08-10 Completed [facility] o f Polysaccharide, 00:00:00 [facility] PPSV23 (PNEUMOVAX) [facility] TDAP (ADACEL) VACCINE 2019-08-10 Completed [facility] 00:00:00 [facility] TDAP 2019-08-10 Completed [facility] 00:00:00 [facility] Pneumococcal 2019-08-10 Completed [facility] o f Polysaccharide, 00:00:00 [facility] PPSV23 (PNEUMOVAX) [facility] TDAP (ADACEL) VACCINE 2019-08-10 Completed [facility] 00:00:00 [facility] TDAP 2019-08-10 Completed [facility] 00:00:00 [facility] Pneumococcal 2019-08-10 Completed [facility] o f Polysaccharide, 00:00:00 [facility] PPSV23 (PNEUMOVAX) [facility] TDAP (ADACEL) VACCINE 2019-08-10 Completed [facility] 00:00:00 [facility] TDAP 2019-08-10 Completed [facility] 00:00:00 [facility] Pneumococcal 2019-08-10 Completed [facility] o f Polysaccharide, 00:00:00 [facility] PPSV23 (PNEUMOVAX) [facility] TDAP (ADACEL) VACCINE 2019-08-10 Completed [facility] 00:00:00 [facility] TDAP 2019-08-10 Completed [facility] 00:00:00 [facility] Pneumococcal 2019-08-10 Completed [facility] o f Polysaccharide, 00:00:00 [facility] PPSV23 (PNEUMOVAX) [facility] TDAP (ADACEL) VACCINE 2019-08-10 Completed [facility] 00:00:00 [facility] TDAP 2019-08-10 Completed [facility] 00:00:00 [facility] Pneumococcal 2019-08-10 Completed [facility] o f Polysaccharide, 00:00:00 [facility] ical PPSV23 (PNEUMOVAX) Branch TDAP (ADACEL) VACCINE 2019-08-10 Completed [facility] vers[facility] 00:00:00 [facility] TDAP 2019-08-10 Completed [facility] 00:00:00 [facility] Influenza Virus 2019-07-04 Completed Universit y of Vaccine 00:00:00 [facility] Influenza Virus 2019-07-04 Completed [facility] of Vaccine Recomb Quad 00:00:00 [facility], Preserv and ABX Branc h Free 18-64 YRS Influenza Virus 2019-07-04 Completed [facility]00 [facility] Influenza Virus 2019-07-04 Completed [facility] 00:00:00 [facility], Preserv and ABX Branc h Free 18-64 YRS Influenza Virus 2019-07-04 Completed [facility] 00:00:00 [facility] Influenza Virus 2019-07-04 Completed [facility] 00:00:00 [facility], Preserv and ABX Branc h Free 18-64 YRS Influenza Virus 2019-07-04 Completed [facility] 00:00:00 [facility] Influenza Virus 2019-07-04 Completed [facility] 00:00:00 [facility], Preserv and ABX Branc h Free 18-64 YRS Influenza Virus 2019-07-04 Completed [facility] 00:00:00 [facility] Influenza Virus 2019-07-04 Completed [facility] 00:00:00 [facility], Preserv and ABX Branc h Free 18-64 YRS Influenza Virus 2019-07-04 Completed [facility] 00:00:00 [facility] Influenza Virus 2019-07-04 Completed [facility] 00:00:00 [facility], Preserv and ABX Branc h Free 18-64 YRS Influenza Virus 2019-07-04 Completed [facility] 00:00:00 [facility] Influenza Virus 2019-07-04 Completed [facility] 00:00:00 [facility], Preserv and ABX Branc h Free 18-64 YRS Influenza Virus 2019-07-04 Completed [facility] 00:00:00 [facility] Influenza Virus 2019-07-04 Completed [facility] 00:00:00 [facility], Preserv and ABX Branc h Free 18-64 YRS Influenza Virus 2019-07-04 Completed [facility] 00:00:00 [facility] Influenza Virus 2019-07-04 Completed [facility]ine [facility] 00:00:00 [facility], Preserv and ABX Branc h Free 18-64 YRS Influenza Virus 2019-07-04 Completed [facility] 00:00:00 [facility] Influenza Virus 2019-07-04 Completed [facility] 00:00:00 [facility], Preserv and ABX Branc h Free 18-64 YRS Influenza Virus 2019-07-04 Completed [facility] 00:00:00 [facility] Influenza Virus 2019-07-04 Completed [facility] 00:00:00 [facility], Preserv and ABX Branc h Free 18-64 YRS Influenza Virus 2019-07-04 Completed [facility] 00:00:00 [facility] Influenza Virus 2019-07-04 Completed [facility]ine [facility] 00:00:00 [facility], Preserv and ABX Branc h Free 18-64 YRS Influenza Virus 2019-07-04 Completed [facility] 00:00:00 [facility] Influenza Virus 2019-07-04 Completed [facility] 00:00:00 [facility], Preserv and ABX Branc h Free 18-64 YRS Influenza Virus 2019-07-04 Completed [facility] 00:00:00 [facility] Influenza Virus 2019-07-04 Completed [facility] 00:00:00 [facility], Preserv and ABX Branc h Free 18-64 YRS Influenza Virus 2019-07-04 Completed [facility] 00:00:00 [facility] Influenza Virus 2019-07-04 Completed [facility] 00:00:00 [facility], Preserv and ABX Branc h Free 18-64 YRS Influenza Virus 2019-07-04 Completed [facility] 00:00:00 [facility] Influenza Virus 2019-07-04 Completed [facility] 00:00:00 [facility], Preserv and ABX Branc h Free 18-64 YRS Influenza Virus 2019-07-04 Completed [facility] 00:00:00 [facility] Influenza Virus 2019-07-04 Completed [facility] 00:00:00 [facility], Preserv and ABX Branc h Free 18-64 YRS Influenza Virus 2019-07-04 Completed [facility] 00:00:00 [facility] Influenza Virus 2019-07-04 Completed [facility] 00:00:00 [facility], Preserv and ABX Branc h Free 18-64 YRS Influenza Virus 2019-07-04 Completed [facility] 00:00:00 [facility] Influenza Virus 2019-07-04 Completed [facility] 00:00:00 [facility], Preserv and ABX Branc h Free 18-64 YRS Influenza Virus 2019-07-04 Completed [facility] 00:00:00 [facility] Influenza Virus 2019-07-04 Completed [facility] 00:00:00 [facility], Preserv and ABX Branc h Free 18-64 YRS Influenza Virus 2019-07-04 Completed [facility] 00:00:00 [facility] Influenza Virus 2019-07-04 Completed [facility] 00:00:00 [facility], Preserv and ABX Branc h Free 18-64 YRS Influenza Virus 2019-07-04 Completed [facility] 00:00:00 [facility] Influenza Virus 2019-07-04 Completed [facility] 00:00:00 [facility], Preserv and ABX Branc h Free 18-64 YRS Influenza Virus 2019-07-04 Completed [facility] 00:00:00 [facility] Influenza Virus 2019-07-04 Completed [facility] 00:00:00 [facility], Preserv and ABX Branc h Free 18-64 YRS Influenza Virus 2019-07-04 Completed [facility] 00:00:00 [facility] Influenza Virus 2019-07-04 Completed [facility]ine [facility] 00:00:00 [facility], Preserv and ABX Branc h Free 18-64 YRS Influenza Virus 2019-07-04 Completed [facility] 00:00:00 [facility] Influenza Virus 2019-07-04 Completed [facility] 00:00:00 [facility], Preserv and ABX Branc h Free 18-64 YRS Influenza Virus 2019-07-04 Completed [facility] 00:00:00 [facility] Influenza Virus 2019-07-04 Completed [facility] 00:00:00 [facility], Preserv and ABX Branc h Free 18-64 YRS Influenza Virus 2019-07-04 Completed [facility] 00:00:00 [facility] Influenza Virus 2019-07-04 Completed [facility] 00:00:00 [facility], Preserv and ABX Branc h Free 18-64 YRS Influenza Virus 2019-07-04 Completed [facility] 00:00:00 [facility] Influenza Virus 2019-07-04 Completed [facility] 00:00:00 [facility], Preserv and ABX Branc h Free 18-64 YRS Influenza Virus 2019-07-04 Completed [facility] 00:00:00 [facility] Influenza Virus 2019-07-04 Completed [facility] 00:00:00 [facility], Preserv and ABX Branc h Free 18-64 YRS Influenza Virus 2019-07-04 Completed [facility] 00:00:00 [facility] Influenza Virus 2019-07-04 Completed [facility] 00:00:00 [facility], Preserv and ABX Branc h Free 18-64 YRS Influenza Virus 2019-07-04 Completed [facility] 00:00:00 [facility] Influenza Virus 2019-07-04 Completed [facility] 00:00:00 [facility], Preserv and ABX Branc h Free 18-64 YRS Influenza Virus 2019-07-04 Completed [facility] 00:00:00 [facility] Influenza Virus 2019-07-04 Completed [facility] 00:00:00 [facility], Preserv and ABX Branc h Free 18-64 YRS Influenza Virus 2019-07-04 Completed [facility] 00:00:00 [facility] Influenza Virus 2019-07-04 Completed [facility] 00:00:00 [facility], Preserv and ABX Branc h Free 18-64 YRS Influenza Virus 2019-07-04 Completed [facility] 00:00:00 [facility] Influenza Virus 2019-07-04 Completed [facility] 00:00:00 [facility], Preserv and ABX Branc h Free 18-64 YRS Influenza Virus 2019-07-04 Completed [facility] 00:00:00 [facility] Influenza Virus 2019-07-04 Completed [facility] 00:00:00 [facility], Preserv and ABX Branc h Free 18-64 YRS Influenza Virus 2019-07-04 Completed [facility] 00:00:00 [facility] Influenza Virus 2019-07-04 Completed [facility] 00:00:00 [facility], Preserv and ABX Branc h Free 18-64 YRS Influenza Virus 2019-07-04 Completed [facility] 00:00:00 [facility] Influenza Virus 2019-07-04 Completed [facility] 00:00:00 [facility], Preserv and ABX Branc h Free 18-64 YRS Influenza Virus 2019-07-04 Completed [facility] 00:00:00 [facility] Influenza Virus 2019-07-04 Completed [facility] 00:00:00 [facility], Preserv and ABX Branc h Free 18-64 YRS Influenza Virus 2019-07-04 Completed [facility] 00:00:00 [facility] Influenza Virus 2019-07-04 Completed [facility] 00:00:00 [facility], Preserv and ABX Branc h Free 18-64 YRS Influenza Virus 2019-07-04 Completed [facility] 00:00:00 [facility] Influenza Virus 2019-07-04 Completed [facility] 00:00:00 [facility], Preserv and ABX Branc h Free 18-64 YRS Influenza Virus 2019-07-04 Completed [facility] 00:00:00 [facility] Influenza Virus 2019-07-04 Completed [facility] 00:00:00 [facility], Preserv and ABX Branc h Free 18-64 YRS Influenza Virus 2019-07-04 Completed [facility] 00:00:00 [facility] Influenza Virus 2019-07-04 Completed [facility] 00:00:00 [facility], Preserv and ABX Branc h Free 18-64 YRS Influenza Virus 2019-07-04 Completed [facility] 00:00:00 [facility] Influenza Virus 2019-07-04 Completed [facility] 00:00:00 [facility], Preserv and ABX Branc h Free 18-64 YRS Influenza Virus 2019-07-04 Completed [facility] 00:00:00 [facility] Influenza Virus 2019-07-04 Completed [facility] 00:00:00 [facility], Preserv and ABX Branc h Free 18-64 YRS Influenza Virus 2019-07-04 Completed [facility] 00:00:00 [facility] Influenza Virus 2019-07-04 Completed [facility] 00:00:00 [facility], Preserv and ABX Branc h Free 18-64 YRS Influenza Virus 2019-07-04 Completed [facility] 00:00:00 [facility] Influenza Virus 2019-07-04 Completed [facility] 00:00:00 [facility], Preserv and ABX Branc h Free 18-64 YRS Influenza Virus 2019-07-04 Completed [facility] 00:00:00 [facility] Influenza Virus 2019-07-04 Completed [facility] 00:00:00 [facility], Preserv and ABX Branc h Free 18-64 YRS Influenza Virus 2019-07-04 Completed [facility] 00:00:00 [facility] Influenza Virus 2019-07-04 Completed [facility] 00:00:00 [facility], Preserv and ABX Branc h Free 18-64 YRS Influenza Virus 2019-07-04 Completed [facility] 00:00:00 [facility] Influenza Virus 2019-07-04 Completed [facility] 00:00:00 [facility], Preserv and ABX Branc h Free 18-64 YRS Influenza Virus 2019-07-04 Completed [facility] 00:00:00 [facility] Influenza Virus 2019-07-04 Completed [facility] 00:00:00 [facility], Preserv and ABX Branc h Free 18-64 YRS Influenza Virus 2019-07-04 Completed [facility] 00:00:00 [facility] Influenza Virus 2019-07-04 Completed [facility] 00:00:00 [facility], Preserv and ABX Branc h Free 18-64 YRS Influenza Virus 2019-07-04 Completed [facility] 00:00:00 [facility] Influenza Virus 2019-07-04 Completed [facility] 00:00:00 [facility], Preserv and ABX Branc h Free 18-64 YRS Influenza Virus 2019-07-04 Completed [facility] 00:00:00 [facility] Influenza Virus 2019-07-04 Completed [facility] 00:00:00 [facility], Preserv and ABX Branc h Free 18-64 YRS Influenza Virus 2019-07-04 Completed [facility] 00:00:00 [facility] Influenza Virus 2019-07-04 Completed [facility] 00:00:00 [facility], Preserv and ABX Branc h Free 18-64 YRS Influenza Virus 2019-07-04 Completed [facility] 00:00:00 [facility] Influenza Virus 2019-07-04 Completed [facility] 00:00:00 [facility], Preserv and ABX Branc h Free 18-64 YRS Influenza Virus 2019-07-04 Completed [facility] 00:00:00 [facility] Influenza Virus 2019-07-04 Completed [facility] 00:00:00 [facility], Preserv and ABX Branc h Free 18-64 YRS Influenza Virus 2019-07-04 Completed [facility] 00:00:00 [facility] Influenza Virus 2019-07-04 Completed [facility] 00:00:00 [facility], Preserv and ABX Branc h Free 18-64 YRS Influenza Virus 2019-07-04 Completed [facility] 00:00:00 [facility] Influenza Virus 2019-07-04 Completed [facility] 00:00:00 [facility], Preserv and ABX Branc h Free 18-64 YRS Influenza Virus 2019-07-04 Completed [facility] 00:00:00 [facility] Influenza Virus 2019-07-04 Completed [facility] 00:00:00 [facility], Preserv and ABX Branc h Free 18-64 YRS Influenza Virus 2019-07-04 Completed [facility] 00:00:00 [facility] Influenza Virus 2019-07-04 Completed [facility] 00:00:00 [facility], Preserv and ABX Branc h Free 18-64 YRS Influenza Virus 2019-07-04 Completed [facility] 00:00:00 [facility] Influenza Virus 2019-07-04 Completed [facility] 00:00:00 [facility], Preserv and ABX Branc h Free 18-64 YRS Influenza Virus 2019-07-04 Completed [facility] 00:00:00 [facility] Influenza Virus 2019-07-04 Completed [facility] 00:00:00 [facility], Preserv and ABX Branc h Free 18-64 YRS Influenza Virus 2019-07-04 Completed [facility] 00:00:00 [facility] Influenza Virus 2019-07-04 Completed [facility] 00:00:00 [facility], Preserv and ABX Branc h Free 18-64 YRS Influenza Virus 2019-07-04 Completed [facility] 00:00:00 [facility] Influenza Virus 2019-07-04 Completed [facility]ine [facility] 00:00:00 [facility], Preserv and ABX Branc h Free 18-64 YRS Influenza Virus 2019-07-04 Completed [facility] 00:00:00 [facility] Influenza Virus 2019-07-04 Completed [facility]ine [facility] 00:00:00 [facility], Preserv and ABX Branc h Free 18-64 YRS Influenza Virus 2019-07-04 Completed [facility] 00:00:00 [facility] Influenza Virus 2019-07-04 Completed [facility]ine [facility] 00:00:00 [facility], Preserv and ABX Branc h Free 18-64 YRS Influenza Virus 2019-07-04 Completed [facility] 00:00:00 [facility] Influenza Virus 2019-07-04 Completed [facility]ine [facility] 00:00:00 [facility], Preserv and ABX Branc h Free 18-64 YRS Influenza Virus 2019-07-04 Completed [facility] Vaccine 00:00:00 [facility] Influenza Virus 2019-07-04 Completed [facility]ine [facility] 00:00:00 [facility], Preserv and ABX Branc h Free 18-64 YRS Influenza Virus 2019-07-04 Completed [facility]ine 00:00:00 [facility] Influenza Virus 2019-07-04 Completed [facility]ine [facility] 00:00:00 [facility], Preserv and ABX Branc h Free 1866 YRS Influenza Virus 2018-06-30 Completed [facility] Quad IM 3+ 00:00:00 [facility] Influenza Virus 2018-06-30 Completed [facility] Vaccine Quad IM 3+ 00:00:00 [facility] Influenza Virus 2018-06-30 Completed [facility] Vaccine Quad IM 3+ 00:00:00 [facility] Influenza Virus 2018-06-30 Completed [facility] Vaccine Quad IM 3+ 00:00:00 [facility] Influenza Virus 2018-06-30 Completed [facility] Vaccine Quad IM 3+ 00:00:00 [facility] Influenza Virus 2018-06-30 Completed [facility] Vaccine Quad IM 3+ 00:00:00 [facility] Influenza Virus 2018-06-30 Completed [facility] Vaccine Quad IM 3+ 00:00:00 [facility] Influenza Virus 2018-06-30 Completed [facility] Vaccine Quad IM 3+ 00:00:00 [facility] Influenza Virus 2018-06-30 Completed [facility] Vaccine Quad IM 3+ 00:00:00 [facility] Influenza Virus 2018-06-30 Completed [facility] Vaccine Quad IM 3+ 00:00:00 [facility] Influenza Virus 2018-06-30 Completed [facility] Vaccine Quad IM 3+ 00:00:00 [facility] Influenza Virus 2018-06-30 Completed [facility] Vaccine Quad IM 3+ 00:00:00 [facility] Influenza Virus 2018-06-30 Completed [facility] Vaccine Quad IM 3+ 00:00:00 [facility] Influenza Virus 2018-06-30 Completed [facility] Vaccine Quad IM 3+ 00:00:00 [facility] Influenza Virus 2018-06-30 Completed [facility] Vaccine Quad IM 3+ 00:00:00 [facility] Influenza Virus 2018-06-30 Completed [facility] Vaccine Quad IM 3+ 00:00:00 [facility] Influenza Virus 2018-06-30 Completed [facility] Vaccine Quad IM 3+ 00:00:00 [facility] Influenza Virus 2018-06-30 Completed [facility] Vaccine Quad IM 3+ 00:00:00 [facility] Influenza Virus 2018-06-30 Completed [facility] Vaccine Quad IM 3+ 00:00:00 [facility] Influenza Virus 2018-06-30 Completed [facility] Vaccine Quad IM 3+ 00:00:00 [facility] Influenza Virus 2018-06-30 Completed [facility] Vaccine Quad IM 3+ 00:00:00 [facility] Influenza Virus 2018-06-30 Completed [facility] Vaccine Quad IM 3+ 00:00:00 [facility] Influenza Virus 2018-06-30 Completed [facility] Vaccine Quad IM 3+ 00:00:00 [facility] Influenza Virus 2018-06-30 Completed [facility] Vaccine Quad IM 3+ 00:00:00 [facility] Influenza Virus 2018-06-30 Completed [facility] Vaccine Quad IM 3+ 00:00:00 [facility] Influenza Virus 2018-06-30 Completed [facility] Vaccine Quad IM 3+ 00:00:00 [facility] Influenza Virus 2018-06-30 Completed [facility] Vaccine Quad IM 3+ 00:00:00 [facility] Influenza Virus 2018-06-30 Completed [facility] Vaccine Quad IM 3+ 00:00:00 [facility] Influenza Virus 2018-06-30 Completed [facility] Vaccine Quad IM 3+ 00:00:00 [facility] Influenza Virus 2018-06-30 Completed [facility] Vaccine Quad IM 3+ 00:00:00 [facility] Influenza Virus 2018-06-30 Completed [facility] Vaccine Quad IM 3+ 00:00:00 [facility] Influenza Virus 2018-06-30 Completed [facility] Vaccine Quad IM 3+ 00:00:00 [facility] Influenza Virus 2018-06-30 Completed [facility] Vaccine Quad IM 3+ 00:00:00 [facility] Influenza Virus 2018-06-30 Completed [facility] Vaccine Quad IM 3+ 00:00:00 [facility] Influenza Virus 2018-06-30 Completed [facility] Vaccine Quad IM 3+ 00:00:00 [facility] Influenza Virus 2018-06-30 Completed [facility] Vaccine Quad IM 3+ 00:00:00 [facility] Influenza Virus 2018-06-30 Completed [facility] Vaccine Quad IM 3+ 00:00:00 [facility] Influenza Virus 2018-06-30 Completed [facility] Vaccine Quad IM 3+ 00:00:00 [facility] Influenza Virus 2018-06-30 Completed [facility] Vaccine Quad IM 3+ 00:00:00 [facility] Influenza Virus 2018-06-30 Completed [facility] Vaccine Quad IM 3+ 00:00:00 [facility] Influenza Virus 2018-06-30 Completed [facility] Vaccine Quad IM 3+ 00:00:00 [facility] Influenza Virus 2018-06-30 Completed [facility] Vaccine Quad IM 3+ 00:00:00 [facility] Influenza Virus 2018-06-30 Completed [facility] Vaccine Quad IM 3+ 00:00:00 [facility] Influenza Virus 2018-06-30 Completed [facility] Vaccine Quad IM 3+ 00:00:00 [facility] Influenza Virus 2018-06-30 Completed [facility] Vaccine Quad IM 3+ 00:00:00 [facility] Influenza Virus 2018-06-30 Completed [facility] Vaccine Quad IM 3+ 00:00:00 [facility] Influenza Virus 2018-06-30 Completed [facility] Vaccine Quad IM 3+ 00:00:00 [facility] Influenza Virus 2018-06-30 Completed [facility] Vaccine Quad IM 3+ 00:00:00 [facility] Influenza Virus 2018-06-30 Completed [facility] Vaccine Quad IM 3+ 00:00:00 [facility] Influenza Virus 2018-06-30 Completed [facility] Vaccine Quad IM 3+ 00:00:00 [facility] Influenza Virus 2018-06-30 Completed [facility] Vaccine Quad IM 3+ 00:00:00 [facility] Influenza Virus 2018-06-30 Completed [facility] Vaccine Quad IM 3+ 00:00:00 [facility] Influenza Virus 2018-06-30 Completed [facility] Vaccine Quad IM 3+ 00:00:00 [facility] Influenza Virus 2018-06-30 Completed [facility] Vaccine Quad IM 3+ 00:00:00 [facility] Influenza Virus 2018-06-30 Completed [facility] Vaccine Quad IM 3+ 00:00:00 [facility] Influenza Virus 2018-06-30 Completed [facility] Vaccine Quad IM 3+ 00:00:00 [facility] Influenza Virus 2018-06-30 Completed [facility] Vaccine Quad IM 3+ 00:00:00 [facility] Influenza Virus 2018-06-30 Completed [facility] Vaccine Quad IM 3+ 00:00:00 [facility] Influenza Virus 2018-06-30 Completed [facility] Vaccine Quad IM 3+ 00:00:00 [facility] Influenza Virus 2018-06-30 Completed [facility] Vaccine Quad IM 3+ 00:00:00 [facility] Influenza Virus 2018-06-30 Completed [facility] Vaccine Quad IM 3+ 00:00:00 [facility] Influenza Virus 2018-06-30 Completed [facility] Vaccine Quad IM 3+ 00:00:00 [facility] Influenza Virus 2018-06-30 Completed [facility] Vaccine Quad IM 3+ 00:00:00 [facility] Influenza Virus 2018-06-30 Completed [facility] Vaccine Quad IM 3+ 00:00:00 [facility] Influenza Virus 2018-06-30 Completed [facility] Vaccine Quad IM 3+ 00:00:00 [facility] Influenza Virus 2018-06-30 Completed [facility] Vaccine Quad IM 3+ 00:00:00 [facility] Influenza Virus 2018-06-30 Completed [facility] Vaccine Quad IM 3+ 00:00:00 [facility] Influenza Virus 2018-06-30 Completed [facility] Vaccine Quad IM 3+ 00:00:00 [facility] Influenza Virus 2018-06-30 Completed [facility] Vaccine Quad IM 3+ 00:00:00 [facility] Influenza Virus 2017-06-15 Completed [facility] Vaccine Quad ID [id number] 00:00:00 [facility] Influenza Virus 2017-06-15 Completed [facility] Vaccine [facility] IM 00:[facility] Multi-dose 6[facility] Influenza [...] [facility] Vaccine [facility] IM 00:00:00 [facility] Multi-dose 6[facility] Influenza Virus 2016-08-05 Completed [facility] Vaccine [facility] IM 00:00:00 [facility] Multi-dose 6+ [place] [facility] Pneumococcal 13 2016-03-07 Completed [facility]it [facility] of Conjugate, PCV13 00:00:00 [facility] dical (Prevnar 13) Branch Meningococcal B, OMV 2016-03-07 Completed Univ ersity of 00:00:00 [facility] Pneumococcal 13 2016-03-07 Completed Universit y of Conjugate, PCV13 00:00:00 [facility] dical (Prevnar 13) Branch Meningococcal B, OMV 2016-03-07 Completed Univ ersity of 00:00:00 [facility] Pneumococcal 13 2016-03-07 Completed [facility]it [facility] of Conjugate, PCV13 00:00:00 [facility] dical (Prevnar 13) Branch Meningococcal B, V 2016-03-07 Completed [facility] ersity of 00:00:00 [facility] Pneumococcal 13 2016-03-07 Completed [facility]it [facility] of Conjugate, PCV13 00:00:00 [facility] dical (Prevnar 13) Branch Meningococcal B, V 2016-03-07 Completed [facility] ersity of 00:00:00 [facility] Pneumococcal 13 2016-03-07 Completed [facility]it [facility] of Conjugate, PCV13 00:00:00 [facility] dical (Prevnar 13) Branch Meningococcal B, V 2016-03-07 Completed [facility] ersity of 00:00:00 [facility] Pneumococcal 13 2016-03-07 Completed [facility]it [facility] of Conjugate, PCV13 00:00:00 [facility] dical (Prevnar 13) Branch Meningococcal B, V 2016-03-07 Completed [facility] ersity of 00:00:00 [facility] Pneumococcal 13 2016-03-07 Completed [facility] of Conjugate, PCV13 00:00:00 [facility] dical (Prevnar 13) Branch Meningococcal B, OMV 2016-03-07 Completed [facility] ersity of 00:00:00 [facility] Pneumococcal 13 2016-03-07 Completed [facility]it [facility] of Conjugate, PCV13 00:00:00 [facility] dical (Prevnar 13) Branch Meningococcal B, OMV 2016-03-07 Completed [facility] ersity of 00:00:00 [facility] Pneumococcal 13 2016-03-07 Completed [facility]it [facility] of Conjugate, PCV13 00:00:00 [facility] dical (Prevnar 13) Branch Meningococcal B, V 2016-03-07 Completed [facility] ersity of 00:00:00 [facility] Pneumococcal 13 2016-03-07 Completed [facility] Conjugate, PCV13 00:00:00 [place] [facility] (Prevnar 13) Branch Meningococcal B, V 2016-03-07 Completed [facility] ersity of 00:00:00 [facility] Pneumococcal 13 2016-03-07 Completed [facility] of Conjugate, PCV13 00:00:00 [place] [facility] (Prevnar 13) Branch Meningococcal B, V 2016-03-07 Completed [facility] ersity of 00:00:00 [facility] Pneumococcal 13 2016-03-07 Completed [facility] of Conjugate, PCV13 00:00:00 [place] [facility] (Prevnar 13) Branch Meningococcal B, V 2016-03-07 Completed [facility] ersity of 00:00:00 [facility] Pneumococcal 13 2016-03-07 Completed [facility] of Conjugate, PCV13 00:00:00 [place] [facility] (Prevnar 13) Branch Meningococcal B, [facility] 2016-03-07 Completed [facility] ersity of 00:00:00 [facility] Pneumococcal 13 2016-03-07 Completed [facility] of Conjugate, PCV13 00:00:00 [place] [facility] (Prevnar 13) Branch Meningococcal B, [facility] 2016-03-07 Completed [facility] ersity of 00:00:00 [facility] Pneumococcal 13 2016-03-07 Completed [facility] of Conjugate, PCV13 00:00:00 [place] [facility] (Prevnar 13) Branch Meningococcal B, V 2016-03-07 Completed [facility] ersity of 00:00:00 [facility] Pneumococcal 13 2016-03-07 Completed [facility] of Conjugate, PCV13 00:00:00 [place] [facility] (Prevnar 13) Branch Meningococcal B, [facility] 2016-03-07 Completed [facility] ersity of 00:00:00 [facility] Pneumococcal 13 2016-03-07 Completed [facility] of Conjugate, PCV13 00:00:00 [place] [facility] (Prevnar 13) Branch Meningococcal B, [facility] 2016-03-07 Completed [facility] ersity of 00:00:00 [facility] Pneumococcal 13 2016-03-07 Completed [facility] of Conjugate, PCV13 00:00:00 [place] [facility] (Prevnar 13) Branch Meningococcal B, [facility] 2016-03-07 Completed [facility] ersity of 00:00:00 [facility] Pneumococcal 13 2016-03-07 Completed [facility] of Conjugate, PCV13 00:00:00 [place] [facility] (Prevnar 13) Branch Meningococcal B, V 2016-03-07 Completed [facility] ersity of 00:00:00 [facility] Pneumococcal 13 2016-03-07 Completed [facility] of Conjugate, PCV13 00:00:00 [place] [facility] (Prevnar 13) Branch Meningococcal B, V 2016-03-07 Completed [facility] ersity of 00:00:00 [facility] Pneumococcal 13 2016-03-07 Completed [facility] of Conjugate, PCV13 00:00:00 [place] [facility] (Prevnar 13) Branch Meningococcal B, [facility] 2016-03-07 Completed [facility] ersity of 00:00:00 [facility] Pneumococcal 13 2016-03-07 Completed [facility] of Conjugate, PCV13 00:00:00 [place] [facility] (Prevnar 13) Branch Meningococcal B, [facility] 2016-03-07 Completed [facility] ersity of 00:00:00 [facility] Pneumococcal 13 2016-03-07 Completed [facility] of Conjugate, PCV13 00:00:00 [place] [facility] (Prevnar 13) Branch Meningococcal B, [facility] 2016-03-07 Completed [facility] ersity of 00:00:00 [facility] Pneumococcal 13 2016-03-07 Completed [facility] of Conjugate, PCV13 00:00:00 [place] [facility] (Prevnar 13) Branch Meningococcal B, [facility] 2016-03-07 Completed [facility] ersity of 00:00:00 [facility] Pneumococcal 13 2016-03-07 Completed [facility] of Conjugate, PCV13 00:00:00 [place] [facility] (Prevnar 13) Branch Meningococcal B, [facility] 2016-03-07 Completed [facility] ersity of 00:00:00 [facility] Pneumococcal 13 2016-03-07 Completed [facility] of Conjugate, PCV13 00:00:00 [place] [facility] (Prevnar 13) Branch Meningococcal B, [facility] 2016-03-07 Completed [facility] ersity of 00:00:00 [facility] Pneumococcal 13 2016-03-07 Completed [facility] of Conjugate, PCV13 00:00:00 [place] [facility] (Prevnar 13) Branch Meningococcal B, [facility] 2016-03-07 Completed [facility] ersity of 00:00:00 [facility] Pneumococcal 13 2016-03-07 Completed [facility] of Conjugate, PCV13 00:00:00 [place] [facility] (Prevnar 13) Branch Meningococcal B, V 2016-03-07 Completed [facility] ersity of 00:00:00 [facility] Pneumococcal 13 2016-03-07 Completed [facility] of Conjugate, PCV13 00:00:00 [place] [facility] (Prevnar 13) Branch Meningococcal B, V 2016-03-07 Completed [facility] ersity of 00:00:00 [facility] Pneumococcal 13 2016-03-07 Completed [facility] of Conjugate, PCV13 00:00:00 [place] [facility] (Prevnar 13) Branch Meningococcal B, V 2016-03-07 Completed [facility] ersity of 00:00:00 [facility] Pneumococcal 13 2016-03-07 Completed [facility] of Conjugate, PCV13 00:00:00 [place] [facility] (Prevnar 13) Branch Meningococcal B, [facility] 2016-03-07 Completed [facility] ersity of 00:00:00 [facility] Pneumococcal 13 2016-03-07 Completed [facility] of Conjugate, PCV13 00:00:00 [place] [facility] (Prevnar 13) Branch Meningococcal B, [facility] 2016-03-07 Completed [facility] ersity of 00:00:00 [facility] Pneumococcal 13 2016-03-07 Completed [facility]it [facility] of Conjugate, PCV13 00:00:00 [place] [facility] (Prevnar 13) Branch Meningococcal B, [facility] 2016-03-07 Completed [facility] ersity of 00:00:00 [facility] Pneumococcal 13 2016-03-07 Completed [facility] of Conjugate, PCV13 00:00:00 [place] [facility] (Prevnar 13) Branch Meningococcal B, [facility] 2016-03-07 Completed [facility] ersity of 00:00:00 [facility] Pneumococcal 13 2016-03-07 Completed [facility] of Conjugate, PCV13 00:00:00 [place] [facility] (Prevnar 13) Branch Meningococcal B, [facility] 2016-03-07 Completed [facility] ersity of 00:00:00 [facility] Pneumococcal 13 2016-03-07 Completed [facility] of Conjugate, PCV13 00:00:00 [place] [facility] (Prevnar 13) Branch Meningococcal B, [facility] 2016-03-07 Completed [facility] ersity of 00:00:00 [facility] Pneumococcal 13 2016-03-07 Completed [facility] of Conjugate, PCV13 00:00:00 [place] [facility] (Prevnar 13) Branch Meningococcal B, V 2016-03-07 Completed [facility] ersity of 00:00:00 [facility] Pneumococcal 13 2016-03-07 Completed [facility]it y of Conjugate, PCV13 00:00:00 [place] [facility] (Prevnar 13) Branch Meningococcal B, V 2016-03-07 Completed [facility] ersity of 00:00:00 [facility] Pneumococcal 13 2016-03-07 Completed [facility]it y of Conjugate, PCV13 00:00:00 [place] [facility] (Prevnar 13) Branch Meningococcal B, V 2016-03-07 Completed [facility] ersity of 00:00:00 [facility] Pneumococcal 13 2016-03-07 Completed [facility] y of Conjugate, PCV13 00:00:00 [place] [facility] (Prevnar 13) Branch Meningococcal B, V 2016-03-07 Completed [facility] ersity of 00:00:00 [facility] Pneumococcal 13 2016-03-07 Completed [facility] y of Conjugate, PCV13 00:00:00 [place] [facility] (Prevnar 13) Branch Meningococcal B, [facility] 2016-03-07 Completed [facility] ersity of 00:00:00 [facility] Pneumococcal 13 2016-03-07 Completed [facility] of Conjugate, PCV13 00:00:00 [place] [facility] (Prevnar 13) Branch Meningococcal B, [facility] 2016-03-07 Completed [facility] ersity of 00:00:00 [facility] Pneumococcal 13 2016-03-07 Completed [facility] of Conjugate, PCV13 00:00:00 [place] [facility] (Prevnar 13) Branch Meningococcal B, [facility] 2016-03-07 Completed [facility] ersity of 00:00:00 [facility] Pneumococcal 13 2016-03-07 Completed [facility] of Conjugate, PCV13 00:00:00 [place] [facility] (Prevnar 13) Branch Meningococcal B, [facility] 2016-03-07 Completed [facility] ersity of 00:00:00 [facility] Pneumococcal 13 2016-03-07 Completed [facility] y of Conjugate, PCV13 00:00:00 [place] [facility] (Prevnar 13) Branch Meningococcal B, [facility] 2016-03-07 Completed [facility] ersity of 00:00:00 [facility] Pneumococcal 13 2016-03-07 Completed [facility] of Conjugate, PCV13 00:00:00 [place] [facility] (Prevnar 13) Branch Meningococcal B, V 2016-03-07 Completed [facility] ersity of 00:00:00 [facility] Pneumococcal 13 2016-03-07 Completed [facility]it y of Conjugate, PCV13 00:00:00 [place] [facility] (Prevnar 13) Branch Meningococcal B, V 2016-03-07 Completed [facility] ersity of 00:00:00 [facility] Pneumococcal 13 2016-03-07 Completed [facility]it y of Conjugate, PCV13 00:00:00 [place] [facility] (Prevnar 13) Branch Meningococcal B, V 2016-03-07 Completed [facility] ersity of 00:00:00 [facility] Pneumococcal 13 2016-03-07 Completed [facility]it y of Conjugate, PCV13 00:00:00 [place] [facility] (Prevnar 13) Branch Meningococcal B, [facility] 2016-03-07 Completed [facility] ersity of 00:00:00 [facility] Pneumococcal 13 2016-03-07 Completed [facility] y of Conjugate, PCV13 00:00:00 [place] [facility] (Prevnar 13) Branch Meningococcal B, [facility] 2016-03-07 Completed [facility] ersity of 00:00:00 [facility] Pneumococcal 13 2016-03-07 Completed [facility] y of Conjugate, PCV13 00:00:00 [place] [facility] (Prevnar 13) Branch Meningococcal B, [facility] 2016-03-07 Completed [facility] ersity of 00:00:00 [facility] Pneumococcal 13 2016-03-07 Completed [facility] y of Conjugate, PCV13 00:00:00 [place] [facility] (Prevnar 13) Branch Meningococcal B, [facility] 2016-03-07 Completed [facility] ersity of 00:00:00 [facility] Pneumococcal 13 2016-03-07 Completed [facility] y of Conjugate, PCV13 00:00:00 [place] [facility] (Prevnar 13) Branch Meningococcal B, [facility] 2016-03-07 Completed [facility] ersity of 00:00:00 [facility] Pneumococcal 13 2016-03-07 Completed [facility] y of Conjugate, PCV13 00:00:00 [place] [facility] (Prevnar 13) Branch Meningococcal B, [facility] 2016-03-07 Completed [facility] ersity of 00:00:00 [facility] Pneumococcal 13 2016-03-07 Completed [facility] of Conjugate, PCV13 00:00:00 [place] [facility] (Prevnar 13) Branch Meningococcal B, V 2016-03-07 Completed [facility] ers[facility] of 00:00:00 [facility] Pneumococcal 13 2016-03-07 Completed [facility] y of Conjugate, PCV13 00:00:00 [place] [facility] (Prevnar 13) Branch Meningococcal B, V 2016-03-07 Completed [facility] ers[facility] of 00:00:00 [facility] Pneumococcal 13 2016-03-07 Completed [facility]it y of Conjugate, PCV13 00:00:00 [facility] dical (Prevnar 13) Branch Meningococcal B, [facility] 2016-03-07 Completed [facility] ersity of 00:00:00 [facility] Pneumococcal 13 2016-03-07 Completed [facility] y of Conjugate, PCV13 00:00:00 [place] [facility] (Prevnar 13) Branch Meningococcal B, [facility] 2016-03-07 Completed [facility] ersity of 00:00:00 [facility] Pneumococcal 13 2016-03-07 Completed [facility]it y of Conjugate, PCV13 00:00:00 [facility] dical (Prevnar 13) Branch Meningococcal B, [facility] 2016-03-07 Completed [facility] ersity of 00:00:00 [facility] Pneumococcal 13 2016-03-07 Completed [facility]it y of Conjugate, PCV13 00:00:00 [facility] dical (Prevnar 13) Branch Meningococcal B, [facility] 2016-03-07 Completed [facility] ersity of 00:00:00 [facility] Pneumococcal 13 2016-03-07 Completed [facility]it y of Conjugate, PCV13 00:00:00 [facility] dical (Prevnar 13) Branch Meningococcal B, [facility] 2016-03-07 Completed [facility] ersity of 00:00:00 [facility] Pneumococcal 13 2016-03-07 Completed [facility] y of Conjugate, PCV13 00:00:00 [place] [facility] (Prevnar 13) Branch Meningococcal B, [facility] 2016-03-07 Completed [facility] ersity of 00:00:00 [facility] Pneumococcal 13 2016-03-07 Completed [facility] y of Conjugate, PCV13 00:00:00 [place] [facility] (Prevnar 13) Branch Meningococcal B, V 2016-03-07 Completed [facility] of 00:00:00 [facility] Pneumococcal 13 2016-03-07 Completed [facility] y of Conjugate, PCV13 00:00:00 [place] [facility] (Prevnar 13) Branch Meningococcal B, V 2016-03-07 Completed [facility] ers[facility] of 00:00:00 [facility] Pneumococcal 13 2016-03-07 Completed [facility] y of Conjugate, PCV13 00:00:00 [place] [facility] (Prevnar 13) Branch Meningococcal B, [facility] 2016-03-07 Completed [facility] ersity of 00:00:00 [facility] Pneumococcal 13 2016-03-07 Completed [facility] of Conjugate, PCV13 00:00:00 [place] [facility] (Prevnar 13) Branch Meningococcal B, [facility] 2016-03-07 Completed [facility] ersity of 00:00:00 [facility] Pneumococcal 13 2016-03-07 Completed [facility] y of Conjugate, PCV13 00:00:00 [place] [facility] (Prevnar 13) Branch Meningococcal B, [facility] 2016-03-07 Completed [facility] ersity of 00:00:00 [facility] Pneumococcal 13 2016-03-07 Completed [facility] y of Conjugate, PCV13 00:00:00 [place] [facility] (Prevnar 13) Branch Meningococcal B, [facility] 2016-03-07 Completed [facility] ersity of 00:00:00 [facility] Pneumococcal 13 2016-03-07 Completed [facility]it y of Conjugate, PCV13 00:00:00 [place] [facility] (Prevnar 13) Branch Meningococcal B, [facility] 2016-03-07 Completed Univ ersity of 00:00:00 [facility] Heamophilus Influenza 2015-11-13 Completed Uni versity of B 00:00:00 [facility] Heamophilus Influenza 2015-11-13 Completed Uni versity of B 00:00:00 [facility] Heamophilus Influenza 2015-11-13 Completed Uni versity of B 00:00:00 [facility] Heamophilus Influenza 2015-11-13 Completed Uni versity of B 00:00:00 [facility] Heamophilus Influenza 2015-11-13 Completed Uni versity of B 00:00:00 [facility] Heamophilus Influenza 2015-11-13 Completed Uni versity of B 00:00:00 [facility] Heamophilus Influenza 2015-11-13 Completed Uni versity of B 00:00:00 [facility] Heamophilus Influenza 2015-11-13 Completed Uni versity of B 00:00:00 [facility] Heamophilus Influenza 2015-11-13 Completed Uni versity of B 00:00:00 [facility] Heamophilus Influenza 2015-11-13 Completed Uni versity of B 00:00:00 [facility] Heamophilus Influenza 2015-11-13 Completed Uni versity of B 00:00:00 [facility] Heamophilus Influenza 2015-11-13 Completed Uni versity of B 00:00:00 [facility] Heamophilus Influenza 2015-11-13 Completed Uni versity of B 00:00:00 [facility] Heamophilus Influenza 2015-11-13 Completed Uni versity of B 00:00:00 [facility] Heamophilus Influenza 2015-11-13 Completed Uni versity of B 00:00:00 [facility] Heamophilus Influenza 2015-11-13 Completed Uni vers[facility] of B 00:00:00 [facility] Heamophilus Influenza 2015-11-13 Completed Uni versity of B 00:00:00 [facility] Heamophilus Influenza 2015-11-13 Completed Uni versity of B 00:00:00 [facility] Heamophilus Influenza 2015-11-13 Completed Uni versity of B 00:00:00 [facility] Heamophilus Influenza 2015-11-13 Completed Uni versity of B 00:00:00 [facility] Heamophilus Influenza 2015-11-13 Completed Uni versity of B 00:00:00 [facility] Heamophilus Influenza 2015-11-13 Completed Uni versity of B 00:00:00 [facility] Heamophilus Influenza 2015-11-13 Completed Uni versity of B 00:00:00 [facility] Heamophilus Influenza 2015-11-13 Completed Uni vers[facility] of B 00:00:00 [facility] Heamophilus Influenza 2015-11-13 Completed Uni versity of B 00:00:00 [facility] Heamophilus Influenza 2015-11-13 Completed Uni versity of B 00:00:00 [facility] Heamophilus Influenza 2015-11-13 Completed Uni vers[facility] of B 00:00:00 [facility] Heamophilus Influenza 2015-11-13 Completed [facility] vers[facility] of B 00:00:00 [facility] Heamophilus Influenza 2015-11-13 Completed [facility] vers[facility] of B 00:00:00 [facility] Heamophilus Influenza 2015-11-13 Completed [facility] vers[facility] of B 00:00:00 [facility] Heamophilus Influenza 2015-11-13 Completed [facility] vers[facility] of B 00:00:00 [facility] Heamophilus Influenza 2015-11-13 Completed [facility] vers[facility] of B 00:00:00 [facility] Heamophilus Influenza 2015-11-13 Completed [facility] vers[facility] of B 00:00:00 [facility] Heamophilus Influenza 2015-11-13 Completed [facility] vers[facility] of B 00:00:00 [facility] Heamophilus Influenza 2015-11-13 Completed [facility] vers[facility] of B 00:00:00 [facility] Heamophilus Influenza 2015-11-13 Completed [facility] vers[facility] of B 00:00:00 [facility] Heamophilus Influenza 2015-11-13 Completed [facility] vers[facility] of B 00:00:00 [facility] Heamophilus Influenza 2015-11-13 Completed [facility] vers[facility] of B 00:00:00 [facility] Heamophilus Influenza 2015-11-13 Completed [facility] vers[facility] of B 00:00:00 [facility] Heamophilus Influenza 2015-11-13 Completed [facility] vers[facility] of B 00:00:00 [facility] Heamophilus Influenza 2015-11-13 Completed [facility] vers[facility] of B 00:00:00 [facility] Heamophilus Influenza 2015-11-13 Completed [facility] vers[facility] of B 00:00:00 [facility] Heamophilus Influenza 2015-11-13 Completed [facility] vers[facility] of B 00:00:00 [facility] Heamophilus Influenza 2015-11-13 Completed [facility] vers[facility] of B 00:00:00 [facility] Heamophilus Influenza 2015-11-13 Completed [facility] vers[facility] of B 00:00:00 [facility] Heamophilus Influenza 2015-11-13 Completed [facility] vers[facility] of B 00:00:00 [facility] Heamophilus Influenza 2015-11-13 Completed [facility] vers[facility] of B 00:00:00 [facility] Heamophilus Influenza 2015-11-13 Completed [facility] vers[facility] of B 00:00:00 [facility] Heamophilus Influenza 2015-11-13 Completed [facility] vers[facility] of B 00:00:00 [facility] Heamophilus Influenza 2015-11-13 Completed [facility] vers[facility] of B 00:00:00 [facility] Heamophilus Influenza 2015-11-13 Completed [facility] vers[facility] of B 00:00:00 [facility] Heamophilus Influenza 2015-11-13 Completed [facility] vers[facility] of B 00:00:00 [facility] Heamophilus Influenza 2015-11-13 Completed [facility] vers[facility] of B 00:00:00 [facility] Heamophilus Influenza 2015-11-13 Completed [facility] vers[facility] of B 00:00:00 [facility] Heamophilus Influenza 2015-11-13 Completed [facility] vers[facility] of B 00:00:00 [facility] Heamophilus Influenza 2015-11-13 Completed [facility] vers[facility] of B 00:00:00 [facility] Heamophilus Influenza 2015-11-13 Completed [facility] B 00:00:00 [facility] Heamophilus Influenza 2015-11-13 Completed [facility] B 00:00:00 [facility] [facility] Heamophilus Influenza 2015-11-13 Completed Uni versity of B 00:00:00 [facility] Heamophilus Influenza 2015-11-13 Completed Uni versity of B 00:00:00 [facility] Heamophilus Influenza 2015-11-13 Completed Uni versity of B 00:00:00 [facility] Heamophilus Influenza 2015-11-13 Completed Uni versity of B 00:00:00 [facility] Heamophilus Influenza 2015-11-13 Completed Uni versity of B 00:00:00 [facility] Heamophilus Influenza 2015-11-13 Completed Uni versity of B 00:00:00 [facility] Heamophilus Influenza 2015-11-13 Completed Uni versity of B 00:00:00 [facility] Heamophilus Influenza 2015-11-13 Completed Uni versity of B 00:00:00 [facility] Heamophilus Influenza 2015-11-13 Completed Uni versity of B 00:00:00 [facility] Heamophilus Influenza 2015-11-13 Completed Uni versity of B 00:00:00 [facility] Heamophilus Influenza 2015-11-13 Completed Uni versity of B 00:00:00 [facility] Meningococcal 2015-11-12 Completed University of Polysaccharide 00:00:00 [place] [facility] (groups A, C, Y and Branc h W-135) conjugate vaccine (MCV4P) Meningococcal 2015-11-12 Completed University of Polysaccharide 00:00:00 [place] [facility] (groups A, C, Y and [...] Meningococcal 2015-11-12 Completed University of Polysaccharide 00:00:00 [place] [facility] (groups A, C, Y and Branc h W-135) conjugate vaccine (MCV4P) TDAP 2015-10-31 Completed University of 00:00:00 [facility] TDAP 2015-10-31 Completed University of 00:00:00 [facility] TDAP 2015-10-31 Completed University of 00:00:00 [facility] TDAP 2015-10-31 Completed University of 00:00:00 [facility] TDAP 2015-10-31 Completed University of 00:00:00 [facility] TDAP 2015-10-31 Completed University of 00:00:00 [facility] TDAP 2015-10-31 Completed University of 00:00:00 [facility] TDAP 2015-10-31 Completed University of 00:00:00 [facility] TDAP 2015-10-31 Completed University of 00:00:00 [facility] TDAP 2015-10-31 Completed University of 00:00:00 [facility] TDAP 2015-10-31 Completed University of 00:00:00 [facility] TDAP 2015-10-31 Completed University of 00:00:00 [facility] TDAP 2015-10-31 Completed University of 00:00:00 [facility] TDAP 2015-10-31 Completed University of 00:00:00 [facility] TDAP 2015-10-31 Completed University of 00:00:00 [facility] TDAP 2015-10-31 Completed University of 00:00:00 [facility] TDAP 2015-10-31 Completed University of 00:00:00 [facility] TDAP 2015-10-31 Completed University of 00:00:00 [facility] TDAP 2015-10-31 Completed University of 00:00:00 [facility] TDAP 2015-10-31 Completed University of 00:00:00 [facility] TDAP 2015-10-31 Completed University of 00:00:00 [facility] TDAP 2015-10-31 Completed University of 00:00:00 [facility] TDAP 2015-10-31 Completed University of 00:00:00 [facility] TDAP 2015-10-31 Completed University of 00:00:00 [facility] TDAP 2015-10-31 Completed University of 00:00:00 [facility] TDAP 2015-10-31 Completed University of 00:00:00 [facility] TDAP 2015-10-31 Completed University of 00:00:00 [facility] TDAP 2015-10-31 Completed University of 00:00:00 [facility] TDAP 2015-10-31 Completed University of 00:00:00 [facility] TDAP 2015-10-31 Completed University of 00:00:00 [facility] TDAP 2015-10-31 Completed University of 00:00:00 [facility] TDAP 2015-10-31 Completed University of 00:00:00 [facility] TDAP 2015-10-31 Completed University of 00:00:00 [facility] TDAP 2015-10-31 Completed University of 00:00:00 [facility] TDAP 2015-10-31 Completed University of 00:00:00 [facility] TDAP 2015-10-31 Completed University of 00:00:00 [facility] TDAP 2015-10-31 Completed University of 00:00:00 [facility] TDAP 2015-10-31 Completed University of 00:00:00 [facility] TDAP 2015-10-31 Completed University of 00:00:00 [facility] TDAP 2015-10-31 Completed University of 00:00:00 [facility] TDAP 2015-10-31 Completed University of 00:00:00 [facility] TDAP 2015-10-31 Completed University of 00:00:00 [facility] TDAP 2015-10-31 Completed University of 00:00:00 [facility] TDAP 2015-10-31 Completed University of 00:00:00 [facility] TDAP 2015-10-31 Completed University of 00:00:00 [facility] TDAP 2015-10-31 Completed University of 00:00:00 [facility] TDAP 2015-10-31 Completed University of 00:00:00 [facility] TDAP 2015-10-31 Completed University of 00:00:00 [facility] TDAP 2015-10-31 Completed University of 00:00:00 [facility] TDAP 2015-10-31 Completed University of 00:00:00 [facility] TDAP 2015-10-31 Completed University of 00:00:00 [facility] TDAP 2015-10-31 Completed University of 00:00:00 [facility] TDAP 2015-10-31 Completed University of 00:00:00 [facility] TDAP 2015-10-31 Completed University of 00:00:00 [facility] TDAP 2015-10-31 Completed University of 00:00:00 [facility] TDAP 2015-10-31 Completed University of 00:00:00 [facility] TDAP 2015-10-31 Completed University of 00:00:00 [facility] TDAP 2015-10-31 Completed University of 00:00:00 [facility] TDAP 2015-10-31 Completed University of 00:00:00 [facility] TDAP 2015-10-31 Completed University of 00:00:00 [facility] TDAP 2015-10-31 Completed University of 00:00:00 [facility] TDAP 2015-10-31 Completed University of 00:00:00 [facility] TDAP 2015-10-31 Completed University of 00:00:00 [facility] TDAP 2015-10-31 Completed University of 00:00:00 [facility] TDAP 2015-10-31 Completed University of 00:00:00 [facility] TDAP 2015-10-31 Completed University of 00:00:00 [facility] TDAP 2015-10-31 Completed University of 00:00:00 [facility] TDAP 2015-10-31 Completed University of 00:00:00 [facility] TDAP 2015-10-31 Completed University of 00:00:00 [facility] Pneumococcal 2014-04-01 Completed University o f Polysaccharide, 00:00:00 [place] [facility] PPSV23 (PNEUMOVAX) Branch Pneumococcal 2014-04-01 Completed University o f Polysaccharide, 00:00:00 [place] [facility] PPSV23 (PNEUMOVAX) [facility] Pneumococcal 2014-04-01 Completed University o f Polysaccharide, 00:00:00 [place] [facility] PPSV23 (PNEUMOVAX) Branch Pneumococcal 2014-04-01 [...] Time Observation Value Comments Source Systolic blood 2022-09-03 17:29:00 97 mm[Hg] Univer sity of pressure [facility] Diastolic blood 2022-09-03 17:29:00 64 mm[Hg] Unive rsity of pressure [facility] Heart rate 2022-09-03 17:29:00 95 /min Universi ty of [facility] Body temperature 2022-09-03 17:29:00 37.17 Melissa Univ ersity of [facility] Body height 2022-09-03 17:29:00 157.5 cm Universi ty of [facility] Body weight 2022-09-03 17:29:00 101.606 kg [facility]i ty [facility] BMI 2022-09-03 17:29:00 40.97 kg/m2 [facility] Oxygen saturation in 2022-09-03 17:29:00 96 /min University of Arterial blood by [facility] Pulse oximetry Branch Systolic blood 2022-08-24 14:41:00 115 mm[Hg] Univer sity of pressure [facility] Diastolic blood 2022-08-24 14:41:00 77 mm[Hg] Unive rsity of pressure [facility] Heart rate 2022-08-24 14:41:00 105 /min Universi ty of [facility] Body temperature 2022-08-24 14:41:00 36.61 Melissa Univ ersity of [facility] Body weight 2022-08-24 14:41:00 102.967 kg [facility] BMI 2022-08-24 14:41:00 41.52 kg/m2 [facility] Systolic blood 2022-07-27 13:03:00 112 mm[Hg] Univer sity of pressure [facility] Diastolic blood 2022-07-27 13:03:00 75 mm[Hg] Unive rsity of pressure [facility] Heart rate 2022-07-27 13:03:00 98 /min Universi ty [facility] Body temperature 2022-07-27 13:03:00 36.83 Melissa Univ ersity of [facility] Body weight 2022-07-27 13:03:00 102.967 kg [facility] BMI 2022-07-27 13:03:00 41.52 kg/m2 [facility] Oxygen saturation in 2022-07-27 13:03:00 94 /min University of Arterial blood by [facility] cipriano Pulse oximetry Branch Systolic blood 2022-06-17 15:45:00 104 mm[Hg] Univer sity of pressure [facility] Diastolic blood 2022-06-17 15:45:00 69 mm[Hg] Unive rsity of pressure [facility] Heart rate 2022-06-17 15:45:00 97 /min Universi ty [facility] Body height 2022-06-17 15:45:00 157.5 cm [facility]i [facility] Body weight 2022-06-17 15:45:00 101.878 kg [facility] BMI 2022-06-17 15:45:00 41.08 kg/m2 [facility] Oxygen saturation in 2022-06-17 15:45:00 98 /min University of Arterial blood by [facility] Pulse oximetry Branch Systolic blood 2022-06-15 13:01:00 101 mm[Hg] Univer sity of pressure [facility] Diastolic blood 2022-06-15 13:01:00 68 mm[Hg] Unive rsity of pressure [facility] Heart rate 2022-06-15 13:01:00 74 /min Universi ty [facility] Body temperature 2022-06-15 13:01:00 36.89 Melissa Univ ersity of [facility] Body weight 2022-06-15 13:01:00 102.967 kg [facility] BMI 2022-06-15 13:01:00 41.52 kg/m2 [facility] Systolic blood 2022-03-27 12:44:00 131 mm[Hg] Univer sity of pressure [facility] Diastolic blood 2022-03-27 12:44:00 83 mm[Hg] Unive rsity of pressure [facility] Heart rate 2022-03-27 12:44:00 102 /min Universi ty [facility] Body temperature 2022-03-27 12:44:00 37.11 Melissa Univ ers[facility] Respiratory rate 2022-03-27 12:44:00 18 /min Univ ersity of [facility] Body height 2022-03-27 12:44:00 157.5 cm [facility] Body weight 2022-03-27 12:44:00 96.616 kg [facility] BMI 2022-03-27 12:44:00 38.96 kg/m2 [facility] [place] [facility] Oxygen saturation in 2022-03-27 12:44:00 98 /min University of Arterial blood by [facility] Pulse oximetry Branch Systolic blood 2022-03-02 15:40:00 113 mm[Hg] Univer sity of pressure [facility] Diastolic blood 2022-03-02 15:40:00 72 mm[Hg] Unive rsity of pressure [facility] Heart rate 2022-03-02 15:40:00 82 /min Universi ty [facility] Respiratory rate 2022-03-02 15:40:00 16 /min Univ ersity of [facility] Oxygen saturation in 2022-03-02 15:40:00 97 /min University of Arterial blood by [facility] Pulse oximetry Branch Body temperature 2022-03-02 15:23:00 36.28 Melissa Univ ersity of [facility] Body weight 2022-02-24 17:00:00 100.245 kg [facility] BMI 2022-02-24 17:00:00 40.42 kg/m2 [facility] Systolic blood 2022-03-02 15:25:00 98 mm[Hg] Univer sity of pressure [facility] Diastolic blood 2022-03-02 15:25:00 55 mm[Hg] Unive rsity of pressure [facility] Heart rate 2022-03-02 15:25:00 85 /min [facility] Respiratory rate 2022-03-02 15:25:00 18 /min Univ ersity of [facility] Oxygen saturation in 2022-03-02 15:25:00 100 /min University of Arterial blood by [facility] Pulse oximetry Branch Body temperature 2022-03-02 15:23:00 36.28 Melissa Univ ersity of [facility] Body weight 2022-02-24 17:00:00 100.245 kg [facility] BMI 2022-02-24 17:00:00 40.42 kg/m2 [facility] Procedures Procedure Date / Time Performing Source Performed Clinician POCT HEMOGLOBIN A1C TEST 2022-08-24 Tray Jolly [facility] ity of 00:00:00 [facility] DME/SUPPLY JUSTIFICATION 2022-08-05 Doctor [facility] ity of 06:01:00 Unassigned, No [place] [facility] SARS-COV-2 COVID-19 CHRISTELLE-SUCROSE 2022-07-27 Tray Jolly [place] of VACCINE 12 YRS+, BIVALENT 0.3ML, 13:13:29 [facility] IM, (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) Br anch MEDICATION CORRESPONDENCE 2022-07-19 [facility] sit of 05:01:00 Unassigned, No [place] [facility] DISABILITY/FMLA 2022-07-01 [facility] of 05:01:00 Unassigned, No [place] [facility] MR THORACIC SPINE WO CONTRAST 2022-06-30 Brunilda, Crystal Un iversity of 16:22:01 [facility] MR CERVICAL SPINE WO CONTRAST 2022-06-30 Brunilda, Crystal Un iversity of 16:20:35 [facility] CONSENT/REFUSAL FOR DIAGNOSIS AND 2022-06-30 [facility] 14:32:21 Unassigned, No [facility] CONSENT/REFUSAL FOR DIAGNOSIS AND 2022-06-30 [facility] 14:32:20 Unassigned, No [place] [facility] INSURANCE CORRESPONDENCE 2022-06-17 [facility] of 05:01:00 Unassigned, No [place] [facility] POWER OF LEGAL ADMINISTRATIVE ASSISTANT 2022-06-01 [facility] of 05:01:00 Unassigned, No [facility] POWER OF LEGAL ADMINISTRATIVE ASSISTANT 2022-05-13 [facility] of 05:01:00 Unassigned, No [facility] DME/SUPPLY JUSTIFICATION 2022-05-06 Doctor [facility] ity of 05:01:00 Unassigned, No [place] [facility] EMG/NCV 2022-04-08 Brunilda [facility] of 14:43:00 [facility] CONSENT/REFUSAL FOR DIAGNOSIS AND 2022-03-27 [facility] 12:40:53 Unassigned, No [facility] PHYSICIAN ORDERS 2022-03-19 [facility] of 05:01:00 Unassigned, No [place] [facility] COLONOSCOPY (ENDO) 2022-03-02 Tray Jolly [place] of 14:43:32 [facility] COLONOSCOPY (ENDO) 2022-03-02 Rik [facility] of 14:43:32 [facility] 2022-03-02 On License [facility] of 14:02:00 [facility] ESOPHAGOGASTRODUODENOSCOPY 2022-03-02 [facility] 14:02:00 [facility] EGD (ENDO) 2022-03-02 Rik [facility] of 13:53:24 [facility] ([facility] 2022-03-02 [facility] of 13:53:24 [facility] POCT GLUCOSE(AGE >30DAYS) 2022-03-02 [facility] ersity of 12:59:00 [facility] POCT GLUCOSE(AGE >30DAYS) 2022-03-02 [facility] ersity of 12:59:00 [facility] POCT GLUCOSE (AUTOMATED) 2022-03-02 [facility] sity of 12:58:00 [facility] POCT GLUCOSE (AUTOMATED) 2022-03-02 [facility] sity of 12:58:00 [facility] POCT TEST 2022-03-02 [facility] of 12:48:00 [facility] POCT TEST 2022-03-02 [facility] of 12:48:00 [facility] DAY SURGERY - ADC 2022-03-02 [facility] of 05:01:00 Unassigned, No [facility] DME/SUPPLY JUSTIFICATION 2022-01-04 Doctor [facility] ity of 05:01:00 Unassigned, No [facility] DME/SUPPLY JUSTIFICATION 2022-01-04 Doctor Univers ity of 05:01:00 Unassigned, No [facility] DISCLOSURE AND CONSENT, MEDICAL 2021-12-28 [facility] of AND SURGICAL PROCEDURES 05:01:00 Unassigned, No [facility] dical Name Branch DISCLOSURE AND CONSENT, MEDICAL 2021-12-28 [facility] AND SURGICAL PROCEDURES 05:01:00 Unassigned, No [place] [facility] Name [facility] Encounters Start End Encounter Admission Attending Care Care Encounter Source Date/Time Date/Time Type Type Clinicians Facility Department ID 2022-02-16 Outpatient R WILLI [facility] MARCUS [id number] Univers 10:29:45 CECILE flores [facility] 2021-12-01 Outpatient [facility] M[facility] [id number] Univers 13:05:09 CECILE flores [facility] 2021-11-04 Outpatient Brock [facility] M[facility]US [id number] Univers 15:43:22 CECILE itjay [facility] 2021-07-27 Emergency [facility] [id number] Univers 19:11:28 ity of [facility] 2021-07-27 Emergency [facility] [id number] Univers 10:12:30 ity of [facility] 2021-07-27 Emergency [facility] [id number] Univers 06:35:13 ity of [facility] 2021-07-27 Emergency [facility] [id number] Univers 04:01:19 ity of [facility] 2021-07-26 Emergency [facility] [id number] Univers 12:06:22 ity of [facility] 2021-07-26 Emergency [facility] [id number] Univers 11:43:46 ity [facility] 2023-02-22 2023-02-22 Outpatient Brock JOLLY [facility] [id number] Univers 09:15:00 09:15:00 TRAY flores [facility] 2022-10-04 2022-10-04 [facility] [id number] Univers 00:00:00 00:00:00 [facility] [id number] it y of [place] [id number] Emanuel as JOLLY?BLEA [id number] [address] MEDICAL OFFICE BUILDING 2022-09-28 2022-09-28 Outpatient Brock JOLLY [facility] [id number] Univers 08:00:00 08:00:00 TRAY flores [facility] 2022-09-10 2022-09-10 [facility] [id number] Univers 00:00:00 00:00:00 [facility] [id number] it y of [place] [id number] Emanuel as JOLLY?BLEA [id number] Pa dicroshan [address] [facility] 2022-09-08 2022-09-08 Telephone [facility] [id number] Univers 00:00:00 00:00:00 Tray HEALTH [id number] it y of [place] [facility] [id number] Emanuel as JOLLY?BLEA [phone] Pa dicroshan [address] [facility] 2022-09-08 2022-09-08 Nurse Delilah OLGUIN [id number] Univers 00:00:00 00:00:00 Triage dMelony [id number] ity of [facility] [id number] Emanuel as [phone] [address] 2022-09-06 2022-09-06 Susan [facility]NEW [facility] [id number] Univers 00:00:00 00:00:00 Wondiful A HEALTH [id number] ity of [place] [id number] Emanuel as JOLLY?BLEA [id number] [address] 2022-09-06 2022-09-06 Susan MárquezNEW [facility] [id number] Univers 00:00:00 00:00:00 Cecile JG [id number] i ty of [place] 4.2.7.2.686 [place] [id number] Pa gabi [address] 2022-09-03 2022-09-03 Outpatient R MISTY [facility] [id number] Univers 11:30:00 11:48:06 BERRY ity of [facility] 2022-09-03 2022-09-03 Office Misty [facility] [id number] Univers 11:30:00 11:48:06 Visit [facility] [id number] it y of [place] [id number] Emanuel as JOLLY?BLEA [phone] Pa dicroshan [address] [facility] 2022-08-24 2022-08-24 Outpatient R RIK [facility] [id number] Univers 09:00:00 09:00:00 TRAY flores [facility] 2022-08-24 2022-08-24 Office JesicabradfordNEW [facility] [id number] Univers 09:00:00 09:00:00 Visit Tray HEALTH [id number] it y of [place] [id number] Emanuel as JOLLY?BLEA [id number] [address] MEDICAL OFFICE [facility] 2022-08-24 2022-08-24 Outpatient R RIK [facility] [id number] Univers 09:00:00 08:53:13 TRAY flores [facility] 2022-08-24 2022-08-24 Reffranchesca PaulaNEW [facility] [id number] Univers 00:00:00 00:00:00 Wondiful A HEALTH [id number] ity of [place] [id number] Emanuel as JOLLY?BLEA [id number] [address] [facility] 2022-08-22 2022-08-22 Reffranchesca PaulaNEW [facility] [id number] Univers 00:00:00 00:00:00 Wondiful A HEALTH [id number] ity of [place] [id number] Emanuel as JOLLY?BLEA [id number] [address] MEDICAL OFFICE [facility] 2022-08-13 2022-08-13 Outpatient R MARY JANE [facility] [id number] Univers 14:00:00 14:00:00 MATEO mark [facility] 2022-08-06 2022-08-06 [facility] [id number] [id number] Univers 00:00:00 00:00:00 Tray HEALTH 350.1.13.10 it y of [place] [id number] Emanuel as JOLLY?BLEA [id number] [address] MEDICAL OFFICE BUILDING 2022-08-05 2022-08-05 Orders Doctor CLAU [id number] [id number] Univers 00:00:00 00:00:00 Only Unassigned, GRAYSON [id number] ity of [place] [facility] 4.2.7.2.686 Emanuel as [id number] [address] 2022-07-29 2022-07-29 [facility] 1.2.840.114 [id number] Univers 00:00:00 00:00:00 [facility] [id number] it y of [place] [facility] [id number] Emanuel as JOLLY?BLEA [phone] [address] [facility] 2022-07-27 2022-07-27 Outpatient Brock JOLLY [facility] [id number] Univers 08:00:00 08:25:43 TRAY ity of [facility] 2022-07-27 2022-07-27 Office [facility] 1.2.840.114 [id number] Univers 08:00:00 08:25:43 Visit [facility] [id number] it y of [place] [facility] 4.2.7.2.686 Emanuel as JOLLY?BLEA [id number] [address] [facility] 2022-07-19 2022-07-19 Orders Doctor CLAU [id number] [id number] Univers 00:00:00 00:00:00 Only Unassigned, GRAYSON [id number] ity of [place] [facility] 4.2.7.2.686 Emanuel as [phone] [address] 2022-07-08 2022-07-08 [facility] 1.2.840.114 [id number] Univers 00:00:00 00:00:00 Tray [place] 350.1.13.10 i ty of [place] [id number] [address] 2022-07-07 2022-07-07 Outpatient R STELLA WORLEY [facility] [id number] Univers 00:00:00 00:00:00 STELLA WORLEY it y of [facility] 2022-07-01 2022-07-01 Orders Doctor CLAU 1.2.840.114 [id number] Univers 00:00:00 00:00:00 Only Unassigned, GRAYSON 350.1.13.10 ity of [facility] 4.2.7.2.686 Emanuel as [id number] [address] 2022-06-30 2022-06-30 Outpatient R BRUNILDA STELLA [facility] [id number] Univers 09:34:33 23:59:00 STELLA WORLEY it y of [facility] 2022-06-30 2022-06-30 [facility] Stella Worley [facility] 1.2.840.114 [id number] Univers 09:34:33 23:59:00 Encounter [place] 350.1.13.10 ity of [facility] [place] [id number] [address] 2022-06-30 2022-06-30 [facility] Stella Worley [facility] 1.2.840.114 [id number] Univers 09:34:16 23:59:00 Encounter [place] 350.1.13.10 ity of [facility] [place] [id number] [address] 2022-06-30 2022-06-30 Orders Doctor CLAU 1.2.840.114 [id number] Univers 00:00:00 00:00:00 Only Unassigned, GRAYSON 350.1.13.10 ity of [facility] 4.2.7.2.686 Emanuel as [phone] [address] 2022-06-30 2022-06-30 Telephone Stella Worley [facility] 1.2.840.114 [id number] Univers 00:00:00 00:00:00 HEALTH 350.1.13.10 it y of [place].2.7.2.[place] [id number] [address] OFFICE BUILDING 2022-06-24 2022-06-24 Outpatient R BRUNILDA STELLA [facility] [id number] Univers 00:00:00 00:00:00 BRUNILDASTELLA it y of [facility] 2022-06-24 2022-06-24 Telephone Stella Worley [facility] 1.2.840.114 [id number] Univers 00:00:00 00:00:00 HEALTH 350.1.13.10 it y of [place].7.2.686 [place] [phone] [address] OFFICE BUILDING 2022-06-21 2022-06-21 Outpatient R JESICABRADFORD [facility] [id number] Univers 11:00:00 11:00:00 TRAY ity of [facility] 2022-06-21 2022-06-21 Telephone Rik [facility] 1.2.840.114 [id number] Univers 00:00:00 00:00:00 Tray HEALTH 350.1.13.10 it y of [place] 4.2.7.2.686 Emanuel as JOLLY?BLEA [phone] Pa samir[address] OFFICE BUILDING 2022-06-17 2022-06-17 Office BrunildaStella [facility] 1.2.840.114 [id number] Univers 11:00:00 11:30:00 Visit HEALTH 350.1.13.10 it y of [place]2.7.2.686 [place] [id number] [address] OFFICE BUILDING 2022-06-17 2022-06-17 Outpatient R BRUNILDA STELLA [facility] [id number] Univers 11:00:00 11:00:00 STELLA WORLEY it y of [facility] 2022-06-17 2022-06-17 Refill Brunilda Stella [facility] 1.2.840.114 [id number] Univers 00:00:00 00:00:00 HEALTH 350.1.13.10 it y of [place].2.686 [place] [id number] [address] OFFICE BUILDING 2022-06-17 2022-06-17 Orders Doctor OLGUIN 1.2.840.114 [id number] Univers 00:00:00 00:00:00 Only Unassigned, GRAYSON 350.1.13.10 ity of [facility] 4.2.7.2.686 Emanuel as [id number] [address] 2022-06-16 2022-06-16 Telephone [facility] 1.2.840.114 [id number] Univers 00:00:00 00:00:00 [facility] 350.1.13.10 it y of [place] 4.2.7.2.686 Emanuel as JOLLY?BLEA [phone] [address] [facility] 2022-06-15 2022-06-15 [facility] [id number] [facility] 08:00:00 08:25:29 TRAY ity [facility] 2022-06-15 2022-06-15 Office [facility] 1.2.840.114 [id number] Univers 08:00:00 08:25:29 Visit [facility] 350.1.13.10 it y of [place] 4.2.7.2.686 Emanuel as JOLLY?BLEA [phone] [address] [facility] 2022-06-14 2022-06-14 Telephone [facility] 1.2.840.114 [id number] Univers 00:00:00 00:00:00 Cecile [place] 350.1.13.10 i ty of [place] 4.2.7.2.686 [place] [phone] Pa samir[address] 2022-06-11 2022-06-11 Telephone [facility] 1.2.840.114 [id number] Univers 00:00:00 00:00:00 [facility] 350.1.13.10 it y of [place] 4.2.7.2.686 Emanuel as JOLLY?BLEA [phone] Pa dicroshan [address] [facility] 2022-06-09 2022-06-09 Telephone [facility] 1.2.840.114 [id number] Univers 00:00:00 00:00:00 [facility] 350.1.13.10 it y of [place] 4.2.7.2.686 Emanuel as JOLLY?BLEA [id number] [address] [facility] 2022-06-04 2022-06-04 Susan Worley Crystal [facility] 1.2.840.114 96 [id number] Univers 00:00:00 00:00:00 HEALTH 350.1.13.10 it y of [place]2.7.2.[place] [id number] [address] [facility] 2022-06-04 2022-06-04 Telephone NurseRy [facility] 1.2.840.114 [id number] Univers 00:00:00 00:00:00 Db HEALTH 350.1.13.10 it y of [place] 4.2.7.2.686 Emanuel as JOLLY?BLEA [phone] Pa dicroshan KNEY [address] [facility] OFF[address] [facility] 2022-06-04 2022-06-04 Refill Willi [facility] 1.2.285.399 [id number] Univers 00:00:00 00:00:00 Cecile GREGORIO 350.1.13.10 i ty of [place] 4.2.7.2.686 [place] [phone] Pa dicroshan [facility] [address] [facility] 2022-06-03 2022-06-03 Outpatient R BRUNILDA STELLA [facility] [id number] Univers 09:30:00 09:30:00 STELLA WORLEY it y of [facility] 2022-06-02 2022-06-02 Stella Barrow [facility] 1.2.840.114 [id number] Univers 00:00:00 00:00:00 HEALTH 350.1.13.10 it y of [place] 4[place]2.7.2.[place] [phone] [address] [facility] 2022-06-02 2022-06-02 Reffranchesca BrunildaStella [facility] 1.2.840.114 [id number] Univers 00:00:00 00:00:00 HEALTH 350.1.13.10 it y of [place] 4.2.7.2.686 [place] [phone] [address] [facility] 2022-06-02 2022-06-02 Telephone Willi [facility] 1.2.840.114 [id number] Univers 00:00:00 00:00:00 Cecile GREGORIO 350.1.13.10 i ty [facility] 4.2.7.2.[place] [phone] Pa dical NAL [address] [facility] 2022-06-01 2022-06-01 Orders Doctor CLAU 1.2.840.114 [id number] Univers 00:00:00 00:00:00 Only Unassigned, GRAYSON 350.1.13.10 ity of [facility] 4.2.7.2.686 Emanuel as [id number] [address] 2022-06-01 2022-06-01 Stella Barrow [facility] 1.2.840.114 [id number] Univers 00:00:00 00:00:00 HEALTH 350.1.13.10 it y of [place] 4[place]2.7.2.686 [place] [phone] [facility] [address] [place] [address] OFFICE BUILDING 2022-06-01 2022-06-01 Susan Márquez [facility] 1.2.312.007 [id number] Univers 00:00:00 00:00:00 Cecile GREGORIO 350.1.13.10 i ty of [facility] 4.2.7.2.[place] [id number] Pa dicroshan BARNEY [address] [facility] 2022-05-28 2022-05-28 Susan Jolly [facility] 1.2.840.114 [id number] Univers 00:00:00 00:00:00 Tray HEALTH 350.1.13.10 it y of [place] 4.2.7.2.686 Emanuel as JOLLY?BLEA [phone] Pa gabi CHAIREZ [address] [place] MEDICAL OFFICE BUILDING 2022-05-26 2022-05-26 Stella Barrow [facility] 1.2.840.114 [id number] Univers 00:00:00 00:00:00 HEALTH 350.1.13.10 it y of [place] 4.2.7.2.686 [place] [phone] [facility] [address] [place] OFFICE BUILDING 2022-05-18 2022-05-18 Outpatient R SANJAY SÁNCHEZ [facility] [id number] Univers 09:00:00 09:00:00 ity of [facility] 2022-05-17 2022-05-17 Outpatient R RIK [facility] [id number] Univers 09:00:00 09:00:00 TRAY flores [facility] 2022-05-13 2022-05-13 Orders Doctor CLAU 1.2.840.114 [id number] Univers 00:00:00 00:00:00 Only Unassigned, GRAYSON 350.1.13.10 ity of [facility] 4.2.7.2.686 Emanuel as [phone] [address] 2022-05-13 2022-05-13 [facility] 1.2.840.114 [id number] Univers 00:00:00 00:00:00 [facility] 350.1.13.10 it y of [place] 4.2.7.2.686 Emanuel as JOLLY?BLEA [id number] Pa gabi [address] OFFICE BUILDING 2022-05-10 2022-05-10 Outpatient Brock JOLLY [facility] [id number] Univers 16:15:00 16:15:00 TRAY flores [facility] 2022-05-10 2022-05-10 Outpatient R STELLA WORLEY [facility] [id number] Univers 00:00:00 00:00:00 STELLA WORLEY [facility] 2022-05-06 2022-05-06 Telephone BrunildaStella [facility] 1.2.840.114 [id number] Univers 00:00:00 00:00:00 HEALTH 350.1.13.10 it y of [place]2.7.2.686 [place] [id number] [address] OFFICE BUILDING 2022-05-06 2022-05-06 Orders Doctor CLAU 1.2.840.114 [id number] Univers 00:00:00 00:00:00 Only Unassigned, GRAYSON 350.1.13.10 ity of [facility] 4.2.7.2.686 Emanuel as [id number] [address] 2022-04-29 2022-04-29 Outpatient Brock AGUILAR [facility] [id number] Univers 14:00:00 14:00:00 CLAU flores [facility] 2022-04-14 2022-04-14 Outpatient R ROXANNEVIK [facility] [id number] Univers 09:00:00 09:00:00 ity of [facility] 2022-04-12 2022-04-12 [facility] 1.2.840.114 [id number] Univers 00:00:00 00:00:00 Ricardo [place] 350.1.13.10 ity of [place]2.7.2.686 [place] [phone] Pa dical NAL [address] BU[address]ING 2022-04-09 2022-04-09 Outpatient R MOMO [facility] [id number] Univers 11:00:00 11:00:00 [facility] 2022-04-08 2022-04-08 [facility] 1.2.840.114 [id number] Univers 08:30:00 23:59:00 Encounter [facility] 350.1.13.10 ity of [place]2.7.2.686 [place] [phone] [facility] [address] OFFICE BUILDING 2022-04-08 2022-04-08 Outpatient R AGUSTINA [facility] [id number] Univers 08:30:00 23:59:00 [facility] ity o f [facility] 2022-04-08 2022-04-08 Telephone Stella Worley [facility] 1.2.840.114 [id number] Univers 00:00:00 00:00:00 HEALTH 350.1.13.10 it y of [place] 4[place]2.7.2.686 [place] [id number] [place] [id number] OFFICE BUILDING 2022-04-02 2022-04-02 Outpatient R MARY JANE [facility] [id number] Univers 09:30:00 09:30:00 MATEO ity [facility] 2022-03-31 2022-03-31 Telephone Rik [facility] 1.2.840.114 [id number] Univers 00:00:00 00:00:00 Tray HEALTH 350.1.13.10 it y of [place] 4.2.7.2.686 Emanuel as JOLLY?BLEA [phone] [address] MEDICAL OFFICE [facility] 2022-03-27 2022-03-27 Emergency [facility] 1.2.831.606 [id number] Univers 07:48:00 08:22:00 Destniy [place] 350.1.13.10 i ty of [place] 4.2.7.2.686 [place] [id number] [place] [address] [place] 2022-03-27 2022-03-27 Emergency X [facility] ERT [id number] Univers 07:48:00 08:22:00 DESTINY ity of [facility] 2022-03-27 2022-03-27 Orders Doctor CLAU 1.2.840.114 [id number] Univers 00:00:00 00:00:00 Only Unassigned, GRAYSON 350.1.13.10 ity of [facility] 4.2.7.2.686 Emanuel as [id number] [address] 2022-03-24 2022-03-24 Telephone [facility] 1.2.840.114 [id number] Univers 00:00:00 00:00:00 [facility] HEALTH 350.1.13.10 it y of [place] [facility] 4.2.7.2.686 Emanuel as JOLLY?BLEA [phone] [address] [facility] 2022-03-19 2022-03-19 Orders Doctor CLAU 1.2.840.114 [id number] Univers 00:00:00 00:00:00 Only Unassigned, GRAYSON 350.1.13.10 ity of [facility] 4.2.7.2.686 Emanuel as [id number] [address] 2022-03-19 2022-03-19 Telephone [facility] 1.2.840.114 [id number] Univers 00:00:00 00:00:00 Tray HEALTH 350.1.13.10 it y of [place] 4.2.7.2.686 Emanuel as JOLLY?BLEA [id number] [address] MEDICAL OFF[address] [facility] 2022-03-17 2022-03-17 Telephone [facility] 1.2.840.114 [id number] Univers 00:00:00 00:00:00 Tray HEALTH 350.1.13.10 it y of [place] 4.2.7.2.686 Emanuel as OJLLY?BLEA [phone] Pa gabi [address] MEDICAL OFFICE BUILDING 2022-03-12 2022-03-12 Stella Barrow [facility] 1.2.840.114 [id number] Univers 00:00:00 00:00:00 HEALTH 350.1.13.10 it y of [place] 4[place]2.7.2.686 [place] [id number] [facility] [address] [place] [address] OFFICE BUILDING 2022-03-08 2022-03-08 [facility] 1.2.840.114 [id number] Univers 00:00:00 00:00:00 Tray HEALTH 350.1.13.10 it y of [place] 4.2.7.2.686 Emanuel as JOLLY?BLEA [id number] [address] MEDICAL OFFICE [facility] 2022-03-02 2022-03-02 Outpatient R [facility] MARCUS [id number] Univers 07:39:00 11:22:00 CECILE flores of [facility] 2022-03-02 2022-03-02 [facility] 1.2.840.114 [id number] Univers 07:39:00 11:22:00 Encounter Cecile [place]REG[place]IO 350.1.13.10 ity of [place]2.7.2.686 [place] SUR[place]ICAL [id number] [facility] [address] [place] 2022-03-02 2022-03-02 Surgery [facility] 1.2.868.826 [id number] Univers 09:11:00 10:25:00 Cecile GREGORIO 350.1.13.10 i ty of [place] 4.2.7.2.686 [place] SURGICAL [phone] [facility] [address] 2022-03-02 2022-03-02 Orders Doctor OLGUIN 1.2.840.114 [id number] Univers 00:00:00 00:00:00 Only Unassigned, GRAYSON 350.1.13.10 [facility] 4.2.7.2.686 Emanuel as [id number] [facility] [address] 2022-03-01 2022-03-01 Telephone Willi [facility] 1.2.840.114 [id number] Univers 00:00:00 00:00:00 Cecile JG 350.1.13.10 i ty [facility] 4.2.7.2.[place] [id number] Pa dical NAL [address] [facility] 2022-03-01 2022-03-01 Refill [facility] 1.2.840.114 [id number] Univers 00:00:00 00:00:00 Sendlarissa SimpsonGabeRashad JG 350.1.13.10 ity of [place] 4.2.7.2.686 [place] [phone] Pa dicnm NAL [address] [facility] 2022-02-25 2022-02-25 Outpatient R RIK [facility] [id number] Univers 11:00:00 11:00:00 [facility] 2022-02-25 2022-02-25 Telephone Stella Worley [facility] 1.2.840.114 [id number] Univers 00:00:00 00:00:00 HEALTH 350.1.13.10 it y of [place] 4.2.7.2.686 [place] [id number] [facility] [address] [place] [address] [facility] 2022-02-24 2022-02-24 [facility]phone [facility] 1.2.840.114 [id number] Univers 00:00:00 00:00:00 [facility] 350.1.13.10 it y of [place] 4.2.7.2.686 Emanuel as JOLLY?BLEA [phone] Pa dical KNEY [address] [facility] OFFICE BUILDING 2022-02-23 2022-02-23 Telephone [facility] 1.2.840.114 [id number] Univers 00:00:00 00:00:00 Tray HEALTH 350.1.13.10 it y of [place] 4.2.7.2.686 Emanuel as JOLLY?BLEA [phone] [facility] JACOBS[address] MED[address] OFF[address] [facility] 2022-02-22 2022-02-22 Refill Nisa [facility] 1.2.840.114 [id number] Univers 00:00:00 00:00:00 Wonditanja Adams HEALTH 350.1.13.10 ity of [place] 4.2.7.2.686 Emanuel as JOLLY?BLEA [id number] [address] [facility] 2022-02-18 2022-02-18 [facility] 1.2.840.114 [id number] Univers 00:00:00 00:00:00 Secure Msg Tray THAPA 350.1.13.10 ity of [place] 4.2.7.2.686 Emanuel as JOLLY?BLEA [phone] [address] [facility] 2022-02-18 2022-02-18 Telephone [facility] 1.2.840.114 [id number] Univers 00:00:00 00:00:00 Tray [place] 350.1.13.10 i ty of [place] 4.2.7.2.686 [place] [phone] [address] 2022-02-16 2022-02-16 Outpatient R RIK [facility] [id number] Univers 09:15:00 09:30:10 TRAY flores [facility] 2022-02-16 2022-02-16 [facility] 1.2.840.114 [id number] Univers 09:15:00 09:30:10 Visit [facility] 350.1.13.10 it y of [place] 4.2.7.2.686 Emanuel as JOLLY?BLEA [phone] [address] [facility] 2022-02-16 2022-02-16 Outpatient R RIK [facility] [id number] Univers 09:15:00 09:15:00 TRAY flores [facility] 2022-02-16 2022-02-16 Telephone Vik Oliveira [facility] 1.2.840.114 [id number] Univers 00:00:00 00:00:00 HEALTH 350.1.13.10 it y of [place].2.[place] [id number] [address] OFFICE BUILDING 2022-02-15 2022-02-15 Outpatient R FLORENCE [facility] [id number] Univers 15:15:00 15:15:00 CAPRICE ity [facility] 2022-02-14 2022-02-14 Nurse CLAU Zarate 1.2.639.419 [id number] Univers 00:00:00 00:00:00 Triage Young GALICIA 350.1.13.10 it y of HOSPITAL 4.2.7.2.686 Emanuel as [id number] [address] 2022-02-12 2022-02-12 Telephone Rik [facility] 1.2.840.114 [id number] Univers 00:00:00 00:00:00 [facility] HEALTH 350.1.13.10 it y of [place] [facility] 4.2.7.2.686 Emanuel as JOLLY?BLEA [phone] Pa gabi CHAIREZ [address] [place] [address] OFFICE BUILDING 2022-02-11 2022-02-11 Telephone Stella Worley [facility] 1.2.840.114 [id number] Univers 00:00:00 00:00:00 HEALTH 350.1.13.10 it y of [place].2.[place] [id number] [address] OFFICE BUILDING 2022-02-11 2022-02-11 Telephone Vik Oliveira [facility] 1.2.840.114 [id number] Univers 00:00:00 00:00:00 HEALTH 350.1.13.10 it y of [place].2.686 [place] [id number] [address] OFFICE BUILDING 2022-02-10 2022-02-10 Outpatient NAV GIANG [facility] [id number] Univers 00:00:00 00:00:00 ity of [facility] 2022-02-10 2022-02-10 Outpatient NAV GIANG [facility] [id number] Univers 00:00:00 00:00:00 ity of [facility] 2022-02-10 2022-02-10 Orders Doctor CLAU 1.2.840.114 [id number] Univers 00:00:00 00:00:00 Only Unassigned, GRAYSON 350.1.13.10 ity of [facility] 4.2.7.2.686 Emanuel as [phone] [address] 2022-02-08 2022-02-08 Outpatient R STELLA WORLEY [facility] [id number] Univers 10:00:00 11:34:48 STELLA WORLEY it y of [facility] 2022-02-08 2022-02-08 Office Stella Worley [facility] 1.2.840.114 [id number] Univers 10:00:00 11:34:48 Visit HEALTH 350.1.13.10 it y of [place] 4.2.7.2.686 [place] mit[place]YNN [id number] [facility] [address] [place] [address] [facility] 2022-02-01 2022-02-01 Telephone [facility] 1.2.794.490 [id number] Univers 00:00:00 00:00:00 Isac S HEALTH 350.1.13.10 it y of [place] 4.2.7.2.686 Emanuel as JOLLY?BLEA [phone] Pa gabi CHAIREZ [address] [facility] OFF[address] [facility] 2022-01-28 2022-01-28 Orders Doctor CLAU 1.2.840.114 [id number] Univers 00:00:00 00:00:00 Only Unassigned, GRAYSON 350.1.13.10 ity of [facility] 4.2.7.2.686 Emanuel as [phone] [address] 2022-01-27 2022-01-27 Telephone [facility] 1.2.840.114 [id number] Univers 00:00:00 00:00:00 Tray HEALTH 350.1.13.10 it y of [place] 4.2.7.2.686 Emanuel as JOLLY?BLEA 199.5360975 Pa gabi JACOBS [address] [facility] OFF[address] [facility] 2022-01-27 2022-01-27 Telephone [facility] 1.2.840.114 [id number] Univers 00:00:00 00:00:00 [facility] 350.1.13.10 it y of Edward [place] 4.2.7.2.686 Emanuel as JOLLY?BLEA [phone] [facility] [address] [place] MEDICAL OFFICE BUILDING 2022-01-27 2022-01-27 Telephone OliveiraVik Tirso [facility] 1.2.840.114 [id number] Univers 00:00:00 00:00:00 HEALTH 350.1.13.10 it [place]2.[place] [phone] [facility] [address] [place] OFFICE BUILDING 2022-01-25 2022-01-25 [facility]patient [facility] [id number] Univers 10:20:49 23:59:00 MATEO flores of [facility] 2022-01-25 2022-01-25 [facility] 1.2.840.114 [id number] Univers 10:00:00 23:59:00 Encounter Mateo GREGORIO 350.1.13.10 ity of [place] 4.2.7.2.686 [place] [facility] [phone] [facility] [address] [place] 2022-01-25 2022-01-25 Outpatient [facility] [id number] Univers 00:00:00 00:00:00 MATEO flores [facility] 2022-01-25 2022-01-25 Orders Doctor OLGUIN 1.2.840.114 [id number] Univers 00:00:00 00:00:00 Only Unassigned, GRAYSON 350.1.13.10 ity of [place] [facility] 4.2.7.2.686 Emanuel as [phone] [address] 2022-01-22 2022-01-22 Telephone Rik [facility] 1.2.840.114 [id number] Univers 00:00:00 00:00:00 Tray HEALTH 350.1.13.10 it y of [place] 4.2.7.2.686 Emanuel as JOLLY?BLEA [phone] [address] [facility] 2022-01-22 2022-01-22 Orders Doctor OLGUIN 1.2.840.114 [id number] Univers 00:00:00 00:00:00 Only Unassigned, GRAYSON 350.1.13.10 ity of [place] [facility] 4.2.7.2.686 Emanuel as [id number] [address] 2022-01-21 2022-01-21 [facility] 1.2.840.114 [id number] Univers 00:00:00 00:00:00 Wondiful A HEALTH 350.1.13.10 ity of [place] 4.2.7.2.686 Emanuel as JOLLY?BLEA [id number] [address] [facility] 2022-01-20 2022-01-20 [facility] 1.2.840.114 [id number] Univers 00:00:00 00:00:00 Wondiful A HEALTH 350.1.13.10 ity of [place] 4.2.7.2.686 Emanuel as JOLLY?BLEA [id number] [address] [facility] 2022-01-19 2022-01-19 Telephone [facility] 1.2.840.114 [id number] Univers 00:00:00 00:00:00 Tray HEALTH 350.1.13.10 it y of [place] 4.2.7.2.686 Emanuel as JOLLY?BLEA [phone] [place] dic[address] 2022-01-18 2022-01-18 Refill [facility] 1.2.840.114 [id number] Univers 00:00:00 00:00:00 Tray HEALTH 350.1.13.10 it y of [place] 4.2.7.2.686 Emanuel as JOLLY?BLEA [id number] [place] [address] [facility] 2022-01-13 2022-01-13 Telephone [facility] 1.2.840.114 [id number] Univers 00:00:00 00:00:00 Arnoldo [place] 350.1.13.10 i ty of [place] 4[place]2.7.2.[place] [phone] [address] 2022-01-11 2022-01-11 Outpatient Brock BARR [facility] [id number] Univers 14:45:00 23:59:00 [facility] 2022-01-11 2022-01-11 [facility] [place] [id number] Univers 14:45:00 23:59:00 [facility] 2022-01-11 2022-01-11 Office [facility] 1.2.840.114 [id number] Univers 13:45:00 14:00:00 Visit [facility] HEALTH 350.1.13.10 it y of [place] 4.2.7.2.686 Emanuel as JOLLY?BLEA [phone] Pa gabi CHAIREZ 198 [facility] 2022-01-11 2022-01-11 Outpatient [facility] [id number] Univers 13:45:00 13:45:00 [facility] 2022-01-07 2022-01-07 Telephone [facility] 1.2.840.114 [id number] Univers 00:00:00 00:00:00 [facility] HEALTH 350.1.13.10 it y of [place] 4.2.7.2.686 Emanuel as JOLLY?BLEA [phone] Pa gabi CHAIREZ 044 [facility] 2022-01-06 2022-01-06 Telephone [facility] 1.2.840.114 [id number] Univers 00:00:00 00:00:00 Wondiful A HEALTH 350.1.13.10 ity of [place] 4.2.7.2.686 Emanuel as JOLLY?BLEA [phone] Pa gabi CHAIREZ 044 [facility] OFFICE [facility] 2022-01-05 2022-01-05 Telephone [facility] 12.840.114 [id number] Univers 00:00:00 00:00:00 Rtay HEALTH 350.1.13.10 it y of [place] 4.2.7.2.686 Emanuel as JOLLY?BLEA [phone] Pa gabi CHAIREZ 044 [facility] OFFICE [facility] 2022-01-04 2022-01-04 Telephone [facility] 1.2.840.114 [id number] Univers 00:00:00 00:00:00 [facility] 350.1.13.10 it y of [place] 4.2.7.2.686 Emanuel as JOLLY?BLEA [phone] Pa gabi JACOBS[address] [facility] 2021-12-31 2021-12-31 Telephone [facility] 1.2.840.114 [id number] Univers 00:00:00 00:00:00 Tray HEALTH 350.1.13.10 it y of [place] 4.2.7.2.686 Emanuel as JOLLY?BLEA [phone] Pa gabi CHAIREZ [address] [place] [address] 2021-12-31 2021-12-31 Telephone [facility] 1.2.840.114 [id number] Univers 00:00:00 00:00:00 [facility] 350.1.13.10 it y of [place] 4.2.7.2.686 Emanuel as JOLLY?BLEA [phone] Pa gabi JACOBS[address] 2021-12-30 2021-12-30 Patient [facility] 1.2.840.114 [id number] Univers 00:00:00 00:00:[address] [facility] 350.1.13.10 ity of [facility] 4.2.7.2.686 Emanuel as PROFESSIO [phone] [address] ONE 2021-12-28 2021-12-28 Outpatient R WLILI [facility] [id number] Univers 09:30:00 10:07:08 CECILE flores [facility] 2021-12-28 2021-12-28 Outpatient R WILLI [facility] [id number] Univers 09:30:00 10:07:08 CECILE flores [facility] 2021-12-28 2021-12-28 Office [facility] 1.2.174.834 [id number] Univers 09:30:00 10:07:08 Visit Cecile GREGORIO 350.1.13.10 i ty of [place] 4.2.7.2.686 [place] [phone] Pa gabi BARNEY [address] [facility] 2021-12-24 2021-12-24 Outpatient R [facility] [id number] Univers 14:00:00 14:00:00 ity of [facility] 2021-12-24 2021-12-24 Patient KikabradfordNEW [facility] 1.2.840.114 [id number] Univers 00:00:00 00:00:00 Secure Msg [facility] 350.1.13.10 ity of [place] 4.2.7.2.686 Emanuel as JOLLY?BLEA [phone] Pa samirnm ARLENE[address] [facility] 2021-12-22 2021-12-22 Telephone [facility] 1.2.840.114 [id number] Univers 00:00:00 00:00:00 Cecile BYERSTON 350.1.13.10 i ty [facility] 4.2.7.2.[place] [phone] Pa gabi BARNEY [address] [place] [address] 2021-12-16 2021-12-16 Telephone [facility] 1.2.840.114 [id number] Univers 00:00:00 00:00:00 [facility] 350.1.13.10 it y of [place] 4.2.7.2.686 Emanuel as JOLLY?BLEA [phone] Pa gabi CHAIREZ [address] [place] [address] 2021-12-11 2021-12-11 Surgery [facility] 1.2.719.359 [id number] Univers 10:33:00 11:46:00 Cecile [place] 350.1.13.10 i ty of [place] 4.2.7.2.686 [place] SURGICAL [phone] [address] 2021-12-11 2021-12-11 Surgery [facility] 1.2.354.227 [id number] Univers 10:33:00 11:46:00 Cecile [place] 350.1.13.10 i ty of [place] 4.2.7.2.686 [place] SURGICAL [phone] [address] 2021-12-11 2021-12-11 Surgery [facility] 1.2.441.209 [id number] Univers 10:33:00 11:46:00 Cecile JG 350.1.13.10 i ty of [place] 4.2.7.2.686 [place] SURGICAL [phone] [facility] [address] [place] 2021-12-11 2021-12-11 [facility] [id number] Univers 08:40:00 11:25:00 [facility] 2021-12-11 2021-12-11 [facility] 1.2.840.114 [id number] Univers 08:40:00 11:25:00 Encounter Cecile JG 350.1.13.10 ity [facility] 4.2.7.2.686 [place] SURGICAL [phone] [facility] [address] [place] 2021-12-11 2021-12-11 Outpatient R [facility] [id number] Univers 08:40:00 11:25:00 [facility] 2021-12-11 2021-12-11 Outpatient R [facility] MARCUS [id number] Univers 08:40:00 11:25:00 [facility] 2021-12-11 2021-12-11 Orders Doctor CLAU 1.2.840.114 [id number] Univers 00:00:00 00:00:00 Only Unassigned, GRAYSON 350.1.13.10 ity of [place] [facility] 4.2.7.2.686 Emanuel as [phone] [address] 2021-12-09 2021-12-09 Telephone Nisa [facility] 1.2.840.114 [id number] Univers 00:00:00 00:00:00 Wondiful A HEALTH 350.1.13.10 ity of [place] 4.2.7.2.686 Emanuel as JOLLY?BLEA [phone] Pa gabi JACOBS[address] MEDICAL OFFICE BUILDING 2021-12-08 2021-12-08 Outpatient R [facility] [id number] Univers 13:00:00 13:00:00 ity of [facility] 2021-12-08 2021-12-08 Telephone [facility] 1.2.840.114 [id number] Univers 00:00:00 00:00:00 Tray HEALTH 350.1.13.10 it y of [place] 4.2.7.2.686 Emanuel as JOLLY?BLEA [phone] Pa gabi JACOBS[address] [facility] 2021-12-08 2021-12-08 Telephone [facility] 1.2.840.114 [id number] Univers 00:00:00 00:00:00 Tray HEALTH 350.1.13.10 it y of [place] 4.2.7.2.686 Emanuel as JOLLY?BLEA [phone] [address] 2021-12-03 2021-12-03 Out[facility] [place] [id number] Univers 13:30:00 13:30:00 [facility] 2021-12-03 2021-12-03 Telephone [facility] 1.2.840.114 [id number] Univers 00:00:00 00:00:00 Cecile BYERSCHRISTELLE 350.1.13.10 i ty justin [facility] 4.2.7.2.[place] [phone] Pa gabi BARNEY [address] [facility] 2021-12-03 2021-12-03 Telephone [facility] 1.2.840.114 [id number] Univers 00:00:00 00:00:00 Wondiful A HEALTH 350.1.13.10 ity of [facility] 4.2.7.2.686 Emanuel as PROFESSIO [phone] [address] [facility] ONE 2021-12-01 2021-12-01 Out[facility] [place] [id number] Univers 14:15:00 14:54:12 WONDIFUL ity o f [facility] 2021-12-01 2021-12-01 Office [facility] 1.2.840.114 [id number] Univers 14:15:00 14:54:12 Visit Wondiful A HEALTH 350.1.13.10 ity of [place] 4.2.7.2.686 Emanuel as JOLLY?BLEA [phone] Pa gabi CHAIREZ [address] [place] [address] MEDICAL OFFICE BUILDING 2021-12-01 2021-12-01 Outpatient R NISA [facility] [id number] Univers 14:15:00 14:54:12 WONDIFUL ity o f [facility] 2021-12-01 2021-12-01 Patient Scot [facility] 1.2.840.114 [id number] Univers 00:00:00 00:00:00 Outreach [facility] 350.1.13.10 i ty of [place] 4.2.7.2.686 Emanuel as JOLLY?BLEA [phone] Pa gabi CHAIREZ [address] [place] [address] [facility] 2021-12-01 2021-12-01 Patient Scot [facility] 1.2.840.114 [id number] Univers 00:00:00 00:00:00 Outreach [facility] 350.1.13.10 i ty of [place] 4.2.7.2.686 Emanuel as JOLLY?BLEA [phone] Pa gabi JACOBS[address] OFF[address] [facility] 2021-11-18 2021-11-18 Outpatient R NISA [facility] [id number] Univers 10:00:00 10:44:34 WONDIFUL ity o f [facility] 2021-11-18 2021-11-18 Outpatient R NISA [facility] [id number] Univers 10:00:00 10:44:34 WONDIFUL ity o f [facility] 2021-11-18 2021-11-18 Outpatient R NISA [facility] [id number] Univers 10:00:00 10:00:00 WONDIFUL ity o f [facility] 2021-11-18 2021-11-18 Outpatient R NISA [facility] [id number] Univers 10:00:00 10:00:00 WONDIFUL ity o f [facility] 2021-11-18 2021-11-18 Outpatient R NISA [facility] [id number] Univers 10:00:00 10:00:00 WONDIFUL ity o f [facility] 2021-11-16 2021-11-16 Outpatient R MÁRQUEZ, [facility] [id number] Univers 09:30:00 09:30:00 CECILE flores [facility] 2021-11-16 2021-11-16 Outpatient R WILLI [facility] [id number] Univers 09:30:00 09:30:00 CECILE flores [facility] 2021-11-16 2021-11-16 Outpatient R WILLI [facility] [id number] Univers 09:30:00 09:30:00 CECILE flores [facility] 2021-11-15 2021-11-15 Emergency X [facility] ERT [id number] Univers 09:06:00 12:49:00 DESTINY flores [facility] 2021-11-15 2021-11-15 Emergency [facility] 1.2.636.757 [id number] Univers 09:06:00 12:49:00 Destiny [place] 350.1.13.10 i ty of [place] 4.2.7.2.686 [place] [facility] [phone] [facility] [address] [place] 2021-11-15 2021-11-15 Emergency X [facility]ONE[facility] ERT [id number] Univers 09:06:00 12:49:00 DESTINY flores [facility] 2021-11-10 2021-11-10 Telephone [facility]NEW [facility] 1.2.840.114 [id number] Univers 00:00:00 00:00:00 Wondiful A HEALTH 350.1.13.10 ity of [place] 4.2.7.2.686 Emanuel as JOLLY?BLEA [phone] Pa gabi [address] MEDICAL OFFICE BUILDING 2021-11-05 2021-11-05 Orders Doctor CLAU 1.2.840.114 [id number] Univers 00:00:00 00:00:00 Only Unassigned, GRAYSON 350.1.13.10 ity of [place] [facility] 4.2.7.2.686 Emanuel as [phone] [facility] [address] [place] 2021-11-05 2021-11-05 Telephone [facility] 1.2.840.114 [id number] Univers 00:00:00 00:00:00 Wondiful A HEALTH 350.1.13.10 ity of [place] 4.2.7.2.686 Emanuel as JOLLY?BLEA [phone] Pa dicroshan KNEY [address] [place] [address] [facility] [facility] 2021-11-03 2021-11-03 Telephone Nisa [facility] 1.2.840.114 [id number] Univers 00:00:00 00:00:00 Wondiful A HEALTH 350.1.13.10 ity of [place] 4.2.7.2.686 Emanuel as JOLLY?BLEA [phone] Pa dicroshan JACOBSEY 044 [facility] OFFICE [facility] 2021-11-03 2021-11-03 Telephone [facility] 1.2.840.114 [id number] Univers 00:00:00 00:00:00 Wondiful A HEALTH 350.1.13.10 ity of [place] 4.2.7.2.686 Emanuel as JOLLY?BLEA [phone] Pa dicroshan JACOBSEY 044 [facility] OFF[address] [facility] 2021-10-27 2021-10-27 Case Sanjay Sánchez 1.2.840.114 [id number] Univers 00:00:00 00:00:00 Management H 350.1.13.10 ity of [place] 4.2.7.2.686 Emanuel as [phone] [place] [address] [place] 2021-10-26 2021-10-26 Telephone Sanjay Sánchez 1.2.840.114 [id number] Univers 00:00:00 00:00:00 H 350.1.13.10 it y of [place] 4.2.7.2.686 Emanuel as [phone] [place] [address] [place] 2021-10-23 2021-10-23 Telephone Jaymie [facility] 1.2.815.494 [id number] Univers 00:00:00 00:00:00 Corry A [place] 350.1.13.10 ity of [place] 4.2.7.2.686 [place] [id number] Pa dicroshan [facility] [address] [facility] 2021-10-22 2021-10-22 Outpatient [facility] [place] [id number] Univers 14:45:00 14:45:00 ISAC jay [facility] 2021-10-22 2021-10-22 Outpatient Brock MOMO [facility] [id number] Univers 14:45:00 14:45:00 ISAC ity [facility] 2021-10-22 2021-10-22 Outpatient Brock MOMO [facility] [id number] Univers 14:45:00 14:45:00 ISAC jay [facility] 2021-10-22 2021-10-22 Outpatient Brock MOMO [facility] [id number] Univers 14:45:00 14:45:00 [facility] 2021-10-19 2021-10-19 Telephone [facility] 1.2.840.114 [id number] Univers 00:00:00 00:00:00 Wondiful A HEALTH 350.1.13.10 ity of [place] 4.2.7.2.686 Emanuel as JOLLY?BLEA [phone] Pa gabi JACOBS[address] [facility] [facility] 2021-10-13 2021-10-13 Outpatient [facility] [id number] Univers 10:30:00 10:41:12 CORRY [facility] 2021-10-13 2021-10-13 Office [facility]NEW [facility] 1.2.840.114 [id number] Univers 10:30:00 10:41:12 Visit Corry Adams [place] 350.1.13.10 ity [facility] 4.2.7.2.686 [place] ESSIHSAN [phone] Pa gabi BARNEY [address] [facility] 2021-10-13 2021-10-13 Outpatient [facility] [id number] Univers 10:30:00 10:41:12 CORRY flores [facility] 2021-09-29 2021-09-29 Outpatient R FLORENCE [facility] [id number] Univers 16:14:01 23:59:00 CAPRICE flores [facility] 2021-09-29 2021-09-29 Outpatient R FLORENCE [facility] [id number] Univers 16:14:01 23:59:00 CAPRICE [facility] 2021-09-29 2021-09-29 Hospital [facility] 1.2.840.114 [id number] Univers 16:14:01 23:59:00 Encounter Caprice THAPA 350.1.13.10 ity of [place] 4.2.7.2.686 Emanuel as JOLLY?BLEA [phone] Me dical CONTRERAS [address] [facility] [facility] 2021-09-29 2021-09-29 Outpatient [facility] [id number] Univers 16:14:01 23:59:00 CAPRICE itjay [facility] 2021-09-29 2021-09-29 Office [facility] 1.2.840.114 [id number] Univers 16:00:00 16:58:02 Visit [facility] 350.1.13.10 it y [facility] 4.2.7.2.686 Emanuel as JOLLY?BLEA [phone] Me dicroshan CHAIREZ [address] [facility] [facility] 2021-09-29 2021-09-29 Outpatient Brock BARR [facility] [id number] Univers 16:00:00 16:58:02 ISAC itjay [facility] 2021-09-29 2021-09-29 Outpatient Brock BARR [facility] [id number] Univers 16:00:00 16:58:02 ISAC [facility] 2021-09-29 2021-09-29 Outpatient Brock BARR [facility] [id number] Univers 16:00:00 16:00:00 [facility] 2021-09-24 2021-09-24 Outpatient Brock BARR [facility] [id number] Univers 14:00:00 14:00:00 [facility] 2021-09-19 2021-09-19 Nurse Caprice Ozuna 1.2.840.114 [id number] Univers 00:00:00 00:00:00 Triage GRAYSON 350.1.13.10 it y of [facility] 4.2.7.2.686 Emanuel as [phone] [address] 2021-09-09 2021-09-09 Prep For Jaymie [facility] 1.2.840.114 [id number] Univers 00:00:00 00:00:00 Surgery Corry BYERSCHRISTELLE 350.1.13.10 ity of [place] 4.2.7.2.686 [place] [phone] Pa dical NAL [address] [facility] 2021-09-08 2021-09-08 Office [facility] 1.2.291.024 [id number] Univers 14:30:00 16:16:36 Visit Cecile JG 350.1.13.10 i ty of [place] 4.2.7.2.686 [place] PROF[place] [phone] Pa dical NAL [address] [facility] 2021-09-08 2021-09-08 [facility] [id number] Univers 14:30:00 16:16:36 CECILE flores [facility] 2021-09-08 2021-09-08 Outpatient [facility] [id number] Univers 14:30:00 16:16:36 [facility] 2021-09-08 2021-09-08 Out[facility] [id number] Univers 14:30:00 14:30:00 CECILE flores [facility] 2021-09-08 2021-09-08 Orders Doctor CLAU 1.2.840.114 [id number] Univers 00:00:00 00:00:00 Only Unassigned, GRAYSON 350.1.13.10 ity of [place] [facility] 4.2.7.2.686 Emanuel as [phone] [address] 2021-09-02 2021-09-02 Outpatient R FLORENCE [facility] [id number] Univers 14:00:00 14:00:00 CAPRICE flores [facility] 2021-08-31 2021-08-31 Orders Doctor OLGUIN 1.2.840.114 [id number] Univers 00:00:00 00:00:00 Only Unassigned, GRAYSON 350.1.13.10 ity of [place] [facility] 4.2.7.2.686 Emanuel as [id number] [address] 2021-08-26 2021-08-26 Outpatient Brock [facility] [id number] Univers 10:45:00 11:58:51 WONDIFUL ity o f [facility] 2021-08-26 2021-08-26 Outpatient R NISA [facility] [id number] Univers 10:45:00 11:58:51 WONDIFUL ity o f [facility] 2021-08-26 2021-08-26 Outpatient R NISA [facility] [id number] Univers 10:45:00 11:58:51 WONDIFUL ity o f [facility] 2021-08-26 2021-08-26 Outpatient R NISA [facility] [id number] Univers 10:45:00 11:58:51 WONDIFUL ity o f [facility] 2021-08-26 2021-08-26 Office [facility] 1.2.840.114 [id number] Univers 10:34:47 11:58:51 Visit Wondiful A HEALTH 350.1.13.10 ity of [place] 4.2.7.2.686 Emanuel as JOLLY?BLEA [id number] [address] MEDICAL OFF[address] [facility] 2021-08-17 2021-08-17 [facility] 1.2.840.114 [id number] Univers 00:00:00 00:00:00 Management Wondiful A HEALTH 350.1.13.10 ity of [place] 4.2.7.2.686 Emanuel as JOLLY?BLEA [phone] [address] MEDICAL OFF[address] [facility] 2021-08-13 2021-08-13 Outpatient R NISA, [facility] [id number] Univers 07:58:20 23:59:00 WONDIFUL ity o f [facility] 2021-08-13 2021-08-13 Hospital [facility] 1.2.388.146 [id number] Univers 07:58:20 23:59:00 Encounter Wondiful A [place] 350.1.13.10 ity of [place] 4.2.7.2.686 [place] WILLIAMS [id number] [facility] [address] [place] [address] 2021-08-13 2021-08-13 [facility] [id number] Univers 07:58:20 23:59:00 WONDIFUL ity o f [facility] 2021-08-13 2021-08-13 Pile Operator Kevin Son[facility] Main [facility] 1.2.8 40.114 [id number] Univers 07:57:57 08:12:57 Visit Bunny Paulaoscarful A [place] 350.1.13. 10 ity of [place] 4.2.7.2.686 [place] PROFESS[place] [id number] Pa dical [facility] [address] BUILDING 2021-08-13 2021-08-13 Outpatient R NISA [facility] [id number] Univers 00:00:00 00:00:00 WONDIFUL ity o f [facility] 2021-08-04 2021-08-04 Outpatient R NISA [facility] [id number] Univers 15:30:00 15:42:52 WONDIFUL ity o f [facility] 2021-08-04 2021-08-04 Outpatient R NISA [facility] [id number] Univers 15:30:00 15:42:52 WONDIFUL ity o f [facility] 2021-08-04 2021-08-04 Outpatient R NISA [facility] [id number] Univers 15:30:00 15:42:52 WONDIFUL ity o f [facility] 2021-08-04 2021-08-04 Outpatient R NISA [facility] [id number] Univers 15:30:00 15:42:52 WONDIFUL ity o f [facility] 2021-08-04 2021-08-04 Outpatient R NISA [facility] [id number] Univers 15:30:00 15:42:52 WONDIFUL ity o [facility] 2021-08-04 2021-08-04 Office [facility] 1.2.840.114 [id number] Univers 14:30:05 15:42:52 Visit Wondiful A HEALTH 350.1.13.10 ity of [place] 4.2.7.2.686 Emanuel as JOLLY?BLEA [phone] Pa dical EY [address] [place] MEDICAL OFFICE BUILDING 2021-08-04 2021-08-04 [facility] [id number] Univers 15:30:00 15:30:00 WONDIFUL ity o [facility] 2021-08-03 2021-08-03 Pre Visit CLAU Edmondson 1.2.840.114 [id number] Univers 00:00:00 00:00:00 Outreach Jorge Fleming GRAYSON [id number] i [facility] [id number] Emanuel as [phone] [place] [id number] [place] 2021-07-15 2021-07-15 [facility] [id number] Univers 14:20:00 14:20:00 SHORTY ity o [facility] 2021-07-15 2021-07-15 [facility] [id number] Univers 14:20:00 14:20:00 SHORTY mark o [facility] 2021-07-15 2021-07-15 Outpatient Brock [facility] [id number] Univers 14:20:00 14:20:00 SHORTY ity [facility] 2021-07-15 2021-07-15 [facility] [id number] Univers 14:20:00 14:20:00 SHORTY alany o [facility] 2021-07-14 2021-07-14 [facility] 1.2.840.114 [id number] Univers 00:00:00 00:00:00 Wondiful A Health [id number] ity of [place] [id number] Emanuel as Professio [phone] [facility] [address] [facility] 2021-07-10 2021-07-10 Outpatient Jessica_S ROB[facility] [id number] [facility] 05:13:00 05:13:00 1015 Medica l [facility] 2021-07-02 2021-07-02 [facility] 1.2.840.114 [id number] Univers 00:00:00 00:00:00 Wondiful A Health 350.1.13.10 ity of [place] [id number] Emanuel as Professio [phone] Pa dical nal [address] [facility] 2021-06-15 2021-06-15 Orders Doctor CLAU 1.2.840.114 [id number] Univers 00:00:00 00:00:00 Only Unassigned, GRAYSON [id number] ity of [place] [facility] 4.2.7.2.686 Emanuel as [phone] [facility] 009 [address] 2021-06-08 2021-06-08 Patient [employer] [facility] 1.2.840.114 [id number] Univers 00:00:00 00:00:00 Outreach Emily J Chavarria 350.1.13.10 ity [id number] [phone] [facility] 086 [place] 2021-06-08 2021-06-08 Refill Vik Oliveira [facility] 1.2.840.114 [id number] Univers 00:00:00 00:00:00 Health 350.1.13.10 [id number] [phone] [place] [id number] [place] [facility] 2021-05-25 2021-05-25 Emergency X DREVER, [facility] ERT [id number] Univers 18:22:00 20:23:00 [facility] 2021-05-25 2021-05-25 Emergency X DREVER, [facility] ERT [id number] Univers 18:22:00 20:23:00 [facility] 2021-05-25 2021-05-25 Emergency X DREVER, [facility] ERT [id number] Univers 18:22:00 20:23:00 [facility] 2021-05-25 2021-05-25 Emergency X DREVER, [facility] ERT [id number] Univers 18:22:00 20:23:00 [facility] 2021-05-25 2021-05-25 Emergency X DREVER, [facility] ERT [id number] Univers 18:22:00 20:23:00 [facility] 2021-05-25 2021-05-25 Emergency Drever, [facility] [id number] Univers 18:22:00 20:23:00 Laureen Truong [place] [id number] ity [facility] [id number] [place] [phone] [place] 677804 [place] 2021-05-21 2021-05-21 Outpatient LAILA GOODWIN [facility] [id number] Univers 09:30:00 09:30:00 LAILA ORELLANA [facility] 2021-05-19 2021-05-19 [facility] [id number] Univers 00:00:00 00:00:00 [facility] [id number] ity [facility] [id number] [facility] [phone] Pa dical [address] Office [facility] 2021-05-14 2021-05-14 Outpatient SANJAY DIAZ [facility] [id number] Univers 09:00:00 09:00:00 [facility] 2021-05-09 2021-05-09 Outpatient DMG DMG [id number] Devoted 11:00:00 11:00:00 0814 [facility] 2021-05-08 2021-05-08 Outpatient Brock HENRIQUEZ [facility] [id number] Univers 07:37:21 23:59:00 [facility] 2021-05-08 2021-05-08 Outpatient Brock HENRIQUEZ [facility] [id number] Univers 07:37:21 23:59:00 [facility] 2021-05-08 2021-05-08 Outpatient Brock HENRIQUEZ [facility] [id number] Univers 07:37:21 23:59:00 [facility] 2021-05-08 2021-05-08 Outpatient Brock HENRIQUEZ [facility] [id number] Univers 07:37:21 23:59:00 [facility] 2021-05-08 2021-05-08 Outpatient Brock BARR [facility] [id number] Univers 08:15:00 08:15:00 ISAC jay [facility] 2021-05-07 2021-05-07 Outpatient DMG DMG [id number] Devoted 12:00:00 12:00:00 0812 Medica l [facility] 2021-04-27 2021-04-27 [facility] [id number] Univers 00:00:00 00:00:00 [facility] [id number] it y of [place] [id number] Emanuel as PROFESSIO [phone] Pa dical NAL [address] OFFICE BUILDING ONE 2021-04-21 2021-04-21 [facility] [id number] Univers 15:45:00 15:45:00 WONSATURNINO flores o [facility] 2021-04-07 2021-04-07 [facility] [id number] Univers 09:20:00 09:20:00 RD [facility] 2021-04-02 2021-04-02 Outpatient [facility] [id number] Univers 08:45:00 08:45:00 ISAC [facility] 2021-04-01 2021-04-01 Emergency X [facility] ERT [id number] Univers 13:00:00 15:36:00 DESTINY [facility] 2021-04-01 2021-04-01 Emergency X [facility] ERT [id number] Univers 13:00:00 15:36:00 DESTINY [facility] 2021-04-01 2021-04-01 Emergency X [facility] ERT [id number] Univers 13:00:00 15:36:00 DESTINY [facility] 2021-04-01 2021-04-01 Outpatient R [facility] [id number] Univers 08:45:00 08:45:00 [facility] 2021-03-28 2021-03-28 Outpatient R BELLA [facility] [id number] Univers 09:40:00 09:40:00 CHELA flores o f [facility] 2021-03-27 2021-03-27 Outpatient R MARY JANE [facility] [id number] Univers 09:30:00 09:30:00 MATEO jay [facility] 2021-03-26 2021-03-26 Outpatient Brock BARR, [facility] [id number] Univers 15:15:00 15:15:00 ISAC jay [facility] 2021-03-25 2021-03-25 Outpatient R JAYMIE, [facility] [id number] Univers 08:30:00 08:30:00 CORRY [facility] 2021-03-23 2021-03-23 Outpatient R STEFFANIE, [facility] [id number] Univers 08:00:00 08:00:00 EMERY phillipsy o f [facility] 2021-03-20 2021-03-20 Emergency X STEPHEN, K [facility] ERT [id number] Univers 19:09:00 19:47:00 ity [facility] 2021-03-20 2021-03-20 Emergency X STEPHEN, K [facility] ERT [id number] Univers 19:09:00 19:47:00 ity [facility] 2021-03-20 2021-03-20 Emergency X STEPHEN, K [facility] ERT [id number] Univers 19:09:00 19:47:00 ity [facility] 2021-03-18 2021-03-18 Outpatient R FLORENCE, [facility] NUT [id number] Univers 00:00:00 00:00:00 CAPRICE [facility] 2021-03-12 2021-03-12 Outpatient [facility] [id number] Univers 08:30:00 08:30:00 ISAC [facility] 2021-03-11 2021-03-11 Outpatient [facility] [id number] Univers 16:15:00 16:15:00 [facility] 2021-03-10 2021-03-10 Susan [facility]NEW [facility] [id number] Univers 00:00:00 00:00:00 [facility] [id number] it y of [place] [id number] [facility] [phone] [place] [id number] [place] OFFICE BUILDING 2021-02-25 2021-02-25 Outpatient R MOMO [facility] [id number] Univers 14:30:00 14:30:00 ISAC jay [facility] 2021-02-25 2021-02-25 Telephone [facility]NEW [facility] [id number] 00:00:00 00:00:00 Sendil Kaley Gregorio [id number] [place] [id number] [facility] [phone] [facility] 059 Building 2021-02-24 2021-02-24 Outpatient R NISA [facility] [id number] Univers 11:00:00 11:00:00 WONDIFUL ity o f [facility] 2021-02-19 2021-02-19 Outpatient R FLORENCE [facility] [id number] Univers 10:03:49 23:59:00 [facility] 2021-02-19 2021-02-19 Outpatient R FLORENCE [facility] [id number] Univers 00:00:00 00:00:00 CAPRICE [facility] 2021-02-17 2021-02-17 Outpatient R [facility] [id number] Univers 17:40:00 17:40:00 [facility] 2021-02-17 2021-02-17 Outpatient Brock TENORIO [facility] [id number] Univers 17:40:00 17:17:33 [facility] 2021-02-17 2021-02-17 Outpatient R JONA [facility] [id number] Univers 17:40:00 17:17:33 [facility] 2021-02-17 2021-02-17 Outpatient R JONA [facility] [id number] Univers 17:40:00 17:17:33 ROGE [facility] 2021-02-10 2021-02-10 Outpatient R ATUL [facility] [id number] Univers 09:00:00 09:00:00 SENDIL [facility] 2021-02-09 2021-02-09 Outpatient Brock BARR [facility] [id number] Univers 14:45:00 14:45:00 [facility] 2021-02-09 2021-02-09 Outpatient R MOMO [facility] [id number] Univers 14:45:00 14:45:00 [facility] 2021-02-04 2021-02-04 Outpatient R JOAQUIMDIEUDONNE [facility] [id number] Univers 10:30:00 10:30:00 SOTO [facility] 2021-02-03 2021-02-03 Outpatient R NISA, [facility] [id number] Univers 16:30:00 16:30:00 WONDIFUL ity o [facility] 2021-01-27 2021-01-27 Outpatient R NAV ANTONIO [facility] [id number] Univers 15:00:00 15:00:00 [facility] 2021-01-21 2021-01-21 Outpatient R ATUL, [facility] [id number] Univers 11:00:00 11:00:00 SENDIL [facility] 2021-01-20 2021-01-20 Outpatient R SANJAY SÁNCHEZ [facility] [id number] Univers 11:00:00 11:00:00 [facility] 2021-01-14 2021-01-14 Outpatient R RIK, [facility] [id number] Univers 10:45:00 10:45:00 TRAY [facility] 2021-01-08 2021-01-08 Outpatient R MOMO [facility] [id number] Univers 08:45:00 08:45:00 [facility] 2021-01-06 2021-01-06 Outpatient R AIMEE [facility] [id number] Univers 11:00:00 11:00:00 SHORTY ity o [facility] 2021-01-01 2021-01-01 Outpatient R NISA [facility] [id number] Univers 15:00:00 15:00:00 WONDIFUL ity o f [facility] 2021-01-01 2021-01-01 Outpatient R NISA, [facility] [id number] Univers 15:00:00 15:00:00 WONDIFUL ity o f [facility] 2021-01-01 2021-01-01 Outpatient Brock PAULA [facility] [id number] Univers 15:00:00 15:00:00 WONDIFUL ity o f [facility] 2021-01-01 2021-01-01 Outpatient Brock PAULA [facility] [id number] Univers 15:00:00 15:00:00 WONDIFUL ity o f [facility] 2020-12-13 2020-12-13 Outpatient [facility] [id number] Univers 08:25:00 08:25:00 ity [facility] 2020-12-13 2020-12-13 Outpatient Brock LINDO [facility] [id number] Univers 08:25:00 08:25:00 TAMMY ity [facility] 2020-12-13 2020-12-13 Outpatient Brock LINDO [facility] [id number] Univers 08:25:00 08:25:00 TAMMY ity [facility] 2020-12-13 2020-12-13 Outpatient R BELGICA [facility] [id number] Univers 08:25:00 08:25:00 [facility] 2020-12-02 2020-12-02 Outpatient R JAKE, [facility] [id number] Univers 09:00:00 09:00:00 LIANA ity [facility] 2020-12-02 2020-12-02 Outpatient R JAKE [facility] [id number] Univers 09:00:00 09:00:00 LIANA ity [facility] 2020-12-02 2020-12-02 Outpatient R JAKE, [facility] [id number] Univers 09:00:00 09:00:00 LIANA ity [facility] 2020-12-02 2020-12-02 Outpatient R JAKE [facility] [id number] Univers 09:00:00 09:00:00 LIANA ity [facility] 2020-11-22 2020-11-22 Outpatient R BELGICA [facility] [id number] Univers 09:40:00 09:40:00 TAMMY jay [facility] 2020-11-22 2020-11-22 Outpatient R BELGICA, [facility] [id number] Univers 09:40:00 09:40:00 TAMMY y [facility] 2020-11-22 2020-11-22 Outpatient R BELGICA, [facility] [id number] Univers 09:40:00 09:40:00 TAMMY [facility] 2020-11-21 2020-11-21 Outpatient R DONOVAN, [facility] [id number] Univers 14:00:00 14:00:00 BOOGIEBrock [facility] 2020-11-20 2020-11-20 Outpatient LAILA GOODWIN [facility] [id number] Univers 15:00:00 15:00:00 LAILA ORELLANA [facility] 2020-11-09 2020-11-09 Outpatient R OSMAR [facility] [id number] Univers 08:20:00 08:20:00 RD [facility] 2020-11-09 2020-11-09 Outpatient R OSMAR [facility] [id number] Univers 08:20:00 08:20:00 [facility] 2020-11-09 2020-11-09 Outpatient R OSMAR [facility] [id number] Univers 08:20:00 08:20:00 [facility] 2020-11-07 2020-11-07 Outpatient R VIK OLIVEIRA [facility] [id number] Univers 11:30:00 11:30:00 ity [facility] 2020-11-06 2020-11-06 Outpatient R NISA [facility] [id number] Univers 08:15:00 08:15:00 WONDIFUL itjay o f [facility] 2020-10-16 2020-10-16 Outpatient R OSMAR [facility] [id number] Univers 18:00:00 18:00:00 RD [facility] 2020-10-02 2020-10-02 Outpatient Brock BARR [facility] [id number] Univers 10:15:00 10:15:00 ISAC itjay [facility] 2020-09-22 2020-09-22 Outpatient R SELF, [facility] [id number] Univers 08:00:00 08:00:00 EMERY ity o f [facility] 2020-09-15 2020-09-15 Outpatient R NISA, [facility] [id number] Univers 00:00:00 00:00:00 WONDIFUL ity o f [facility] 2020-09-15 2020-09-15 Outpatient R NISA, [facility] [id number] Univers 00:00:00 00:00:00 WONDIFUL ity o f [facility] 2020-09-14 2020-09-14 Outpatient R GREEN, [facility] [id number] Univers 08:40:00 08:40:00 ROGE [facility] 2020 2020 Outpatient R NISA, [facility] [id number] Univers 00:00:00 00:00:00 WONDIFUL ity o f [facility] 2020-09-10 2020-09-10 Outpatient R DUCKWORTH, [facility] [id number] Univers 08:00:00 08:00:00 SHANTI ity [facility] 2020-09-08 2020-09-08 Outpatient R SELF, [facility] [id number] Univers 08:00:00 08:00:00 EMERY ity o f [facility] 2020-09-04 2020-09-04 Outpatient R NISA, [facility] [id number] Univers 16:00:00 16:00:00 WONDIFUL ity o f [facility] 2020-08-25 2020-08-25 Outpatient R NISA, [facility] [id number] Univers 11:00:00 11:13:03 WONDIFUL ity o f [facility] 2020-08-25 2020-08-25 Outpatient R NISA, [facility] [id number] Univers 10:30:00 10:30:00 WONDIFUL ity o f [facility] 2020-08-06 2020-08-06 Outpatient R PATRICIO, [facility] [id number] Univers 10:20:00 10:20:00 BALJIT ity [facility] 2020-08-06 2020-08-06 Outpatient R PATRICIO [facility] [id number] Univers 09:00:00 09:00:00 BALJIT flores of [facility] 2020-08-01 2020-08-01 Outpatient R DE LA TORRE, [facility] [id number] Univers 10:00:00 10:00:00 MATEO flores [facility] 2020-07-18 2020-07-18 Outpatient R LAILA ORELLANA [facility] [id number] Univers 11:00:00 11:00:00 LAILA ORELLANA i ty [facility] 2020-07-17 2020-07-17 Outpatient R ROXANNEVIK [facility] [id number] Univers 12:00:00 12:00:00 ity [facility] 2020-07-14 2020-07-14 Outpatient R NISA, [facility] [id number] Univers 10:45:00 10:45:00 WONDIFUL ity o f [facility] 2020-07-07 2020-07-07 Outpatient R MAKSIM [facility] [id number] Univers 08:30:00 08:30:00 AUBRIE flores [facility] 2020-06-27 2020-06-27 Outpatient R NISA [facility] [id number] Univers 15:15:00 15:15:00 WONDIFUL ity o f [facility] 2020-06-12 2020-06-12 Outpatient R MARBELLAKIMO [facility] [id number] Univers 15:45:00 15:45:00 AUBRIE [facility] 2020-06-05 2020-06-05 Outpatient R MOMO [facility] [id number] Univers 10:30:00 10:30:00 ISAC ity [facility] 2020-06-03 2020-06-03 Outpatient R ATUL [facility] [id number] Univers 09:00:00 09:00:00 SENDLARISSA itjay [facility] 2020-05-16 2020-05-16 Outpatient R ROXANNEVIK [facility] [id number] Univers 16:30:00 16:30:00 ity [facility] 2020-05-09 2020-05-09 Outpatient R [facility] [id number] Univers 10:20:00 10:20:00 ity [facility] 2020-04-21 2020-04-21 Outpatient R ARGENIS, [facility] [id number] Univers 11:40:00 11:40:00 [facility] 2020-04-18 2020-04-18 Outpatient R ATUL, [facility] [id number] Univers 09:30:00 09:30:00 SENDLARISSA ity [facility] 2020-04-15 2020-04-15 Outpatient R [facility] [id number] Univers 10:20:00 10:20:00 ity of [facility] 2020-04-04 2020-04-04 Outpatient R [facility] [id number] Univers 10:00:00 10:00:00 ity of [facility] 2020-04-01 2020-04-01 Outpatient R [facility] [id number] Univers 08:00:00 08:00:00 [facility] 2020-03-20 2020-03-20 Outpatient R ROMARIO, [facility] [id number] Univers 10:00:00 10:00:00 FABRICIO [facility] 2020-03-10 2020-03-10 Outpatient R MIKAYLA, [facility] [id number] Univers 08:45:00 08:45:00 CL [facility] 2020-03-03 2020-03-03 Outpatient R MAKSIM, [facility] [id number] Univers 08:00:00 08:00:00 AUBRIE [facility] 2020-01-22 2020-01-22 [facility] [id number] Univers 15:45:00 15:45:00 [facility] 2020-01-22 Outpatient [facility] [id number] Univers 10:45:00 10:45:00 [facility] 2020-01-18 2020-01-18 Outpatient R SANJAY SÁNCHEZ [facility] [id number] Univers 11:30:00 11:30:00 ity [facility] 2020-01-11 2020-01-11 Outpatient R LAILA ORELLANA [facility] [id number] Univers 11:00:00 11:00:00 [facility]ILA [facility] 2020-01-10 2020-01-10 Outpatient R NISA [facility] [id number] Univers 10:00:00 10:00:00 WONDIFUL ity o f [facility] 2020-01-04 2020-01-04 Outpatient R VIK OLIVEIRA [facility] [id number] Univers 11:30:00 11:30:00 [facility] 2020-01-01 2020-01-01 Outpatient R [facility] [id number] Univers 08:00:00 08:00:00 [facility] 2019-12-21 2019-12-21 [facility] [id number] Univers 09:30:00 09:30:00 WONDIFUL ity o f [facility] 2019-12-06 2019-12-06 [facility] [id number] Univers 11:00:00 11:00:00 FABRICIO [facility] 2019-11-30 2019-11-30 Outpatient [facility] [id number] Univers 10:30:00 10:30:00 [facility] 2019-11-29 2019-11-29 Outpatient Brock [facility] [id number] Univers 08:15:00 08:15:00 [facility] 2019-11-23 2019-11-23 Outpatient R [facility] [id number] Univers 08:00:00 08:00:00 [facility] Results Test Description Test Time Test Comments Results Result Comments Source POCT HEMOGLOBIN A1C TEST 2022-08-24 14:54:00 Test Item Value Reference Range Interpretation Comme nts POCT HBA1C (test code = 4548-4) 4.6 % 4-6 [facility] HEMOGLOBIN A1C [id number] 14:54:00 Test Item Value Reference Range Interpretation Comments POCT HBA1C (test code = 4548-4) 4.6 % 4-6 [facility] GLUCOSE (AUTOMATED)2022-03-02 13:11:54 Test Item Value Reference Range Interpretation Comments POCT GLU (test code = 2393519306) 137 mg/dL 70-110 H Lab Interpretation (test code = Abnormal 12902-1) [facility] GLUCOSE (AUTOMATED)2022-03-02 13:11:54 Test Item Value Reference Range Interpretation Comments POCT GLU (test code = 4191050960) 137 mg/dL 70-110 H Lab Interpretation (test code = Abnormal 85633-5) [facility] [id number] 12:59:00 Test Item Value Reference Range Interpretation Comments POCT Glu (age>30days) (test code = 137 mg/dL 70-110 A 3342) Lab Interpretation (test code = Abnormal 96797-1) [facility] [id number] 12:59:00 Test Item Value Reference Range Interpretation Comments POCT Glu (age>30days) (test code = 137 mg/dL 70-110 A 3342) Lab Interpretation (test code = Abnormal 85044-1) [facility] [id number] 12:48:00 Test Item Value Reference Range Interpretation Comments POCT PREG (test code = 1605) Negative On board controls acceptable with Yes C Line (test code = 3574) POCT PREG LOT # (test code = 3575) [id number] POCT PREG TEST DATE (test 2023-06-25 code = 3576) [facility] [id number] 12:48:00 Test Item Value Reference Range Interpretation Comments POCT PREG (test code = 1605) Negative On board controls acceptable with Yes C Line (test code = 3574) POCT PREG LOT # (test code = 3575) [id number] POCT PREG TEST DATE (test 2023-06-25 code = 3576) [facility]
[2022-10-04] MEDS ORDERED: FAMOTIDINE 20 MG/2 ML VIAL IV ONE (17:49)
[2022-10-04] MEDS ORDERED: ONDANSETRON 4 MG/2 ML VIAL ONE (17:49)
[2022-10-04] MEDS ORDERED: DICYCLOMINE HCL 20 MG/2 ML AMP IM ONE (17:49)
[2022-10-04 18:09] LABS: Urine Blood Negative (Negative); Urine Glucose Negative (Negative); Urine Protein Negative (Negative)
[2022-10-04 18:10] LABS: Hematocrit 33.8 % (36.0-45.0); MCV 91.9 fL (80-100); MPV 9.9 fL (7.6-11.3); RBC Red Blood Cell Count 3.68 M/uL (3.86-4.86)
[2022-10-04 18:26] LABS: Urine Bacteria <20 /HPF (<20); Urine Mucus Slight /HPF (None Seen); Urine RBC <5 /HPF (None Seen); Urine WBC Clump Rare /HPF (None Seen)
[2022-10-04 18:27] LABS: Albumin 4.1 g/dL (3.4-5.0); Bilirubin Total 0.6 mg/dL (0.2-1.0); Potassium 3.9 mmol/L (3.5-5.1); Protein, Total 7.2 g/dL (6.4-8.2)
[2022-10-04] MEDS ORDERED: METOCLOPRAMIDE 10 MG/2mL INJ ONE (19:07)
[2022-10-04] MEDS ORDERED: KETOROLAC 30 MG/ML INJ ONE (19:08)
[2022-10-04] MEDS ORDERED: NA CHLORIDE 0.9% 500 ML ONE (19:08)
--- NOTE | 2022-10-04 19:31 | ER ---
Nurse's Notes [facility] Name: Linda Rahman Age: 47 yrs Sex: Female : 1975 Arrival Date: 10/04/2022 Time: 16:14 Bed 30 Private MD: Diagnosis: Abdominal pain, unspecified Presentation: 10/04 16:31 Chief complaint: Patient states: stomach pain all over since almost 3 years , got worse iw today , diarrhea off and on. Coronavirus screen: At this time, the client does not indicate any symptoms associated with coronavirus-19. Ebola Screen: Patient negative for fever greater than or equal to 101.5 degrees Fahrenheit, and additional compatible Ebola Virus Disease symptoms Patient denies exposure to infectious person. Patient denies travel to an Ebola-affected area in the 21 days before illness onset. No symptoms or risks identified at this time. Initial Sepsis Screen: Does the patient meet any 2 criteria? No. Patient's initial sepsis screen is negative. Does the patient have a suspected source of infection? No. Patient's initial sepsis screen is negative. Risk Assessment: Do you want to hurt yourself or someone else? Patient reports no desire to harm self or others. Onset of symptoms was 2020. 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 - Social history:: Smoking status: Patient denies any tobacco usage or history of. Screenin:[address] [facility] ED Fall Risk Assessment (Adult) History of falling in the last 3 months, eh3 including since admission No falls in past 3 months (0 pts) Confusion or Disorientation No (0 pts) Intoxicated or Sedated No (0 pts) Impaired Gait No (0 pts) Mobility Assist Device Used No (0 pt) Altered Elimination No (0 pt) Score/Fall Risk Level 0 - 2 = Low Risk. Abuse screen: Denies threats or abuse. Denies injuries from another. Nutritional screening: No deficits noted. Tuberculosis screening: No symptoms or risk factors identified. Assessment: 17:30 General: Appears in no apparent distress. uncomfortable, Behavior is calm, cooperative, eh3 appropriate for age. Pain: Complains of pain in abdomen. Neuro: Level of Consciousness is awake, alert, obeys commands, Oriented to person, place, time, situation. Cardiovascular: Capillary refill < 3 seconds Patient's skin is warm and dry. Respiratory: Airway is patent Respiratory effort is even, unlabored, Respiratory pattern is regular, symmetrical. GI: Abdomen is round non-distended, Bowel sounds present X 4 quads. Abd is soft Abdomen is tender to palpation X 4 quads. Reports lower abdominal pain, upper abdominal pain, nausea. : No signs and/or symptoms were reported regarding the genitourinary system. EENT: No signs and/or symptoms were reported regarding the EENT system. Derm: No signs and/or symptoms reported regarding the dermatologic system. Musculoskeletal: No signs and/or symptoms reported regarding the musculoskeletal system. 18:30 Reassessment: Patient appears in no apparent distress at this time. Patient and/or 3 family updated on plan of care and expected duration. Pain level reassessed. Patient is alert, oriented x 3, equal unlabored respirations, skin warm/dry/pink. 19:30 Reassessment: Patient appears in no apparent distress at this time. Patient and/or 3 family updated on plan of care and expected duration. Pain level reassessed. Patient is alert, oriented x 3, equal unlabored respirations, skin warm/dry/pink. Vital Signs: 16:31 BP 129 / 84; Pulse 96; Resp 16; Temp 98.4; Pulse Ox 100% on R/A; Weight 102.97 kg; iw Height 5 ft. 2 in. (157.48 cm); Pain 10/10; 17:30 BP 117 / 82; Pulse 85; Resp 18; Pulse Ox 99% on R/A; eh3 18:30 BP 118 / 68; Pulse 88; Resp 18; Pulse Ox 100% on R/A; eh3 19:30 BP 122 / 70; Pulse 85; Resp 16; Pulse Ox 100% on R/A; eh3 16:31 Body Mass Index 41.52 (102.97 kg, 157.48 cm) iw ED Course: 16:14 Patient arrived in ED. mr 16:30 Young Burgos PA is PHCP. cp 16:30 Young Hernandez MD is Attending Physician. cp 16:33 Triage completed. iw 16:33 Arm band placed on. iw 17:30 Patient has correct armband on for positive identification. Bed in low position. Call eh3 light in reach. Side rails up X2. Pulse ox on. NIBP on. Door closed. Noise minimized. 17:34 Rosalind Estrella RN is Primary Nurse. 3 17:50 Inserted saline lock: 20 gauge in right antecubital area, using aseptic technique. eh3 Blood collected. 19:09 Primary Nurse role handed off by Rosalind Estrella RN mw2 19:15 Rosalind Estrella RN is Primary Nurse. eh3 19:53 No provider procedures requiring assistance completed. IV discontinued, intact, eh3 bleeding controlled, No redness/swelling at site. Pressure dressing applied. Administered Medications: 17:55 Drug: Pepcid (famotidine) 20 mg Route: IVP; Site: right antecubital; eh3 18:58 Follow up: Response: No adverse reaction eh3 17:55 Drug: Zofran (Ondansetron) 4 mg Route: IVP; Site: right antecubital; eh3 18:58 Follow up: Response: No adverse reaction eh3 17:55 Drug: Dicyclomine 20 mg Route: IM; Site: right deltoid; eh3 18:58 Follow up: Response: No adverse reaction eh3 19:05 Drug: Reglan (metoCLOPramide) 10 mg Route: IVP; Site: right antecubital; eh3 19:45 Follow up: Response: No adverse reaction eh3 19:05 Drug: Ketorolac 15 mg Route: IVP; Site: right antecubital; eh3 19:45 Follow up: Response: Pain is decreased eh3 19:05 Drug: NS 0.9% 500 ml Route: IV; Rate: bolus; Site: right antecubital; eh3 19:53 Follow up: IV Status: IV converted to saline lock; IV Intake: 400ml eh3 Medication: 19:53 VIS not applicable for this client. eh3 Intake: :53 IV: 400ml; Total: 400ml. eh3 Outcome: 19:30 Discharge ordered by . robby :53 Discharged to home ambulatory. eh3 :53 Condition: stable :53 Discharge instructions given to patient, Instructed on discharge instructions, follow up and referral plans. medication usage, Demonstrated understanding of instructions, follow-up care, medications, Prescriptions given X 2. :53 Patient left the ED. eh3 Signatures: Nely Araujo Irene, RN RN iw Young Burgos PA PA cp Gatti, MyKena mw2 Rosalind Estrella RN RN eh3
--- NOTE | 2022-10-04 19:31 | EDPHYS ---
Physician Documentation [facility] Name: Linda Rahman Age: 47 yrs Sex: Female : 1975 Arrival Date: 10/04/2022 Time: 16:14 Bed 30 Private MD: ALEXA Physician Young Hernandez HPI: 10/04 16:45 This 47 yrs old Female presents to ER via Wheelchair with complaints of cp Abdominal Pain. 16:45 The patient presents with abdominal pain in the upper abdomen. cp 16:45 Onset: The symptoms/episode began/occurred today. cp 16:45 The symptoms do not radiate. Associated signs and symptoms: Pertinent positives: cp nausea, Pertinent negatives: anorexia, blood in stools, chest pain, constipation, diarrhea, vaginal discharge, active vomiting. The symptoms are described as constant. Severity of pain: in the emergency department the pain is unchanged despite EMS interventions. 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 - Social history:: Smoking status: Patient denies any tobacco usage or history of. ROS: 16:50 Constitutional: Negative for body aches, chills, fever, poor PO intake. cp 16:50 Eyes: Negative for injury, pain, redness, and discharge. cp 16:50 ENT: Negative for drainage from ear(s), ear pain, sore throat, difficulty swallowing, difficulty handling secretions. 16:50 Cardiovascular: Negative for chest pain, edema, palpitations. 16:50 Respiratory: Negative for cough, shortness of breath, wheezing. 16:50 Abdomen/GI: Positive for abdominal pain, nausea, Negative for diarrhea, constipation, active vomiting. 16:50 Back: Negative for pain at rest, pain with movement. 16:50 Neuro: Negative for altered mental status, dizziness, headache, syncope, weakness. 16:50 All other systems are negative. Exam: 16:55 Constitutional: The patient appears in no acute distress, alert, awake, cp non-diaphoretic, non-toxic, well developed, well nourished, obese. 16:55 Head/Face: Normocephalic, atraumatic. cp 16:55 Eyes: Periorbital structures: appear normal, Conjunctiva: normal, no exudate, no injection, Sclera: no appreciated abnormality, Lids and lashes: appear normal, bilaterally. 16:55 ENT: External ear(s): are unremarkable, Nose: is normal, Mouth: Lips: moist, Oral mucosa: pink and intact, moist, Posterior pharynx: Airway: no evidence of obstruction, patent. 16:55 Chest/axilla: Inspection: normal. 16:55 Cardiovascular: Rate: normal, Rhythm: regular. 16:55 Respiratory: the patient does not display signs of respiratory distress, Respirations: normal, no use of accessory muscles, no retractions, labored breathing, is not present, Breath sounds: are clear throughout, no decreased breath sounds, no stridor, no wheezing. 16:55 Abdomen/GI: Inspection: obese Bowel sounds: active, all quadrants, Palpation: soft, in all quadrants, moderate abdominal tenderness, in the umbilical area, right upper quadrant and left upper quadrant, rebound tenderness, is not appreciated, involuntary guarding, is not appreciated. 16:55 Back: pain, is absent, ROM is normal. Vital Signs: 16:31 BP 129 / 84; Pulse 96; Resp 16; Temp 98.4; Pulse Ox 100% on R/A; Weight 102.97 kg; iw Height 5 ft. 2 in. (157.48 cm); Pain 10/10; 17:30 BP 117 / 82; Pulse 85; Resp 18; Pulse Ox 99% on R/A; eh3 18:30 BP 118 / 68; Pulse 88; Resp 18; Pulse Ox 100% on R/A; eh3 19:30 BP 122 / 70; Pulse 85; Resp 16; Pulse Ox 100% on R/A; eh3 16:31 Body Mass Index 41.52 (102.97 kg, 157.48 cm) iw MDM: 16:43 Patient medically screened. cp 17:00 Differential diagnosis: appendicitis, non-specific abd pain, pancreatitis, Peptic Ulcer cp Disease, Perf. Duodenal Ulcer, Perf. Gastric Ulcer, Pyelonephritis, Ureterolithiasis, urinary tract infection, drug seeking behavior. 19:30 Data reviewed: vital signs, nurses notes, lab test result(s). cp 19:30 Response to treatment: the patient's symptoms have mildly improved after treatment, and cp as a result, I will discharge patient. Special discussion: Based on the patient's Hx, exam, and Dx evaluation, there is no indication for emergent surgery or inpatient Tx. It is understood by the patient/guardian that if the Sx's persist or worsen they need to return immediately for re-evaluation. ED course: VSS. Labs reviewed. Patient seen in this ED on multiple occasions for similar complaints with multiple CT of abdomen/pelvis performed. Will discharge to home for continued monitoring. 10/04 16:38 Order name: CBC with Diff; Complete Time: 18:50 cp 10/04 18:50 Interpretation: Normal except: RBC 3.68; HGB 11.6; HCT 33.8. cp 10/04 16:38 Order name: CMP; Complete Time: 18:50 cp 10/04 18:51 Interpretation: Normal except: CL 111; CRE 1.10; GFR 62; ALK 162. cp 10/04 16:38 Order name: Lipase; Complete Time: 18:50 cp 10/04 16:38 Order name: Urine Microscopic Only; Complete Time: 18:50 cp 10/04 18:10 Order name: Urine Dipstick-Ancillary; Complete Time: 18:50 EDMS 10/04 16:38 Order name: IV Saline Lock; Complete Time: 18:13 cp 10/04 16:38 Order name: Labs collected and sent; Complete Time: 18:13 cp 10/04 16:38 Order name: Urine Dipstick-Ancillary (obtain specimen); Complete Time: 18:13 cp 10/04 16:38 Order name: Urine Test (obtain specimen); Complete Time: 18:13 cp Administered Medications: 17:55 Drug: Pepcid (famotidine) 20 mg Route: IVP; Site: right antecubital; eh3 18:58 Follow up: Response: No adverse reaction eh3 17:55 Drug: Zofran (Ondansetron) 4 mg Route: IVP; Site: right antecubital; eh3 18:58 Follow up: Response: No adverse reaction eh3 17:55 Drug: Dicyclomine 20 mg Route: IM; Site: right deltoid; 3 18:58 Follow up: Response: No adverse reaction eh3 19:05 Drug: Reglan (metoCLOPramide) 10 mg Route: IVP; Site: right antecubital; eh3 19:45 Follow up: Response: No adverse reaction eh3 19:05 Drug: Ketorolac 15 mg Route: IVP; Site: right antecubital; eh3 19:45 Follow up: Response: Pain is decreased eh3 19:05 Drug: NS 0.9% 500 ml Route: IV; Rate: bolus; Site: right antecubital; 3 19:53 Follow up: IV Status: IV converted to saline lock; IV Intake: 400ml 3 Disposition Summary: 10/04/22 19:30 Discharge Ordered Location: Home cp Problem: an ongoing problem cp Symptoms: have improved cp Condition: Stable cp Diagnosis - Abdominal pain, unspecified cp Followup: cp - With: Private Physician - When: 1 - 2 days - Reason: Recheck today's complaints Discharge Instructions: - Discharge Summary Sheet cp - Abdominal Pain, Adult cp Forms: - Medication Reconciliation Form cp - Thank You Letter cp - Antibiotic Education cp - Prescription Opioid Use cp Prescriptions: - Reglan 10 mg Oral Tablet - take 1 tablet by ORAL route every 6 hours take 30 minutes before meals and at cp bedtime; 20 tablet; Refills: 0, Product Selection Permitted - dicyclomine 20 mg Oral Tablet - take 1 tablet by ORAL route 4 times per day; 30 tablet; Refills: 0, Product cp Selection Permitted Signatures: Dispatcher [employer] Marychuy Taveras RN RN iw Page, Corey, PA PA cp Rosalind Estrella RN RN eh3 Corrections: (The following items were deleted from the chart) 18:51 18:51 Normal except: CL 111; CRE 1.10; GFR 62. cp cp
[2022-10-04 20:49] VITALS: TEMP 98.4
[2022-10-04 20:56] VITALS: O2SAT 100
[2022-10-04 20:57] VITALS: BP 122/70
== END 2022-10-04 19:53 | disposition home or self-care (01) ==
LOC: ER 16:05
DX: R10.10 Upper abdominal pain, unspecified (principal); E11.9 Type 2 diabetes mellitus without complications; I10 Essential (primary) hypertension; Z88.1 Allergy status to other antibiotic agents; Z88.5 Allergy status to narcotic agent; Z88.8 Allergy status to other drugs, medicaments and biological substances
CPT/HCPCS: 85025; 36415; 83690; 80053; J2765; J0500; J7040; J2405; 81003; 81015; 96361; 96372; 96374; 96375; 99284

== ENCOUNTER 2022-10-07 01:27 | Emergency (ER) | payer OTHER ==
[2022-10-07] MEDS ORDERED: NA CHLORIDE 0.9% 1,000 ML ONE (01:39)
[2022-10-07 01:58] LABS: MCV 92.7 fL (80-100); MPV 9.6 fL (7.6-11.3); RBC Red Blood Cell Count 3.56 M/uL (3.86-4.86)
--- OUTSIDE RECORDS SUMMARY | 2022-10-07 01:59 | XMS REPORT | Continuity of Care Document ---
:1975 Author Organization [facility] [place] [facility] t Address [address] [place] [address] Care Team Providers Name Role Phone Tray Jolly MD Primary Care Physician [phone] CECILE MÁRQUEZ Attending Clinician Unavailable TRAY [...] LA TORRE Attending Clinician Unavailable Doctor Unassigned, [place] Attending Clinician Unavailable STELLA WORLEY Attending Clinician [...] Clinician Arnoldo Elizabeth MD Attending Clinician Jessie [facility], Genesis Shah Attending Clinician GABRIELLA SALAS Attending Clinician Unavailable ANDREA PAULA Attending Clinician Unavailable Scot [facility], Vik Fleming Attending Clinician Sanjay Sánchez NP [...] Number Effective Date Expiration Date Mitzy mcneil [facility] DUAL [id number] 2021 COMP CHOICE PPO 00:00:00 DSNP [facility] STAR PLUS [id number] 2021 00:00:00 MEDICAID [facility] [id number] 2016 00:00:00 CIGNA HMO [id number] 2022 00:00:00 [facility] HEALTH DAY8 2021 (MEDICARE 00:00:00 REPLACEMENT HMO) [employer] [id number] 2020 BEHAVIORAL 00:00:00 SOLUTIONS Problems Condition Condition [...] of body of 00:00: g of this [place] stomach stomach 00 note Medical without without might be Branch dysplasia dysplasia different from the original. Added automatic ally from request for surgery [id number] Chronic Chronic Disease Active Overview: Univ ers superficia superficia 4-05 Formattin ity of l l 00:00: g of this [place] gastritis gastritis 00 note Medi cipriano without without might be Branch bleeding bleeding different from the original. Added automatic ally from request for surgery [id number] Hyperplast Hyperplast Disease Active Overview : Univers ic polyps ic polyps 4-05 Formattin i ty of of stomach of stomach 00:00: g of this 00 note Medical might be Branch different from the original. Added automatic ally from request for surgery [id number] Indigestio Indigestio Disease Active 2020-09 Overview : Univers n n 2-15 Formattin ity of 00:00: g of this note Medical might be Branch different from the original. Added automatic ally from request for surgery [id number] Bloating Bloating Disease Active 2020-09 Overview: Un jerrod 2-15 Formattin ity of 00:00: g of this note Medical might be Branch different from the original. 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 [place] disorder[place] disorder[place] 00 [facility] in in Branch remission remission Hypothyroi Hypothyroi Disease Active U nivers d d 2-05 ity of 00:00: [facility] Essential Essential Disease Active Uni vers hypertensi hypertensi 2-05 it y of on, benign [place], benign [place] [facility] Well woman Well woman Disease Active U nivers exam exam 2-05 ity of 00:00: [facility] Chest pain Chest pain Disease Active U nivers 9-13 ity of 00:00: [facility] Peripheral Peripheral Disease Active U nivers neuropathy neuropathy it y of [facility] 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 ity of [facility] PCOS PCOS Disease Active Univers (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[place] [facility] Branch Allergies, Adverse Reactions, Alerts Allergy [...] Univers FRANCA INGREDI 05-30 ity of 00:00: [address] Social History Social Habit Start Date Stop Date Quantity Comments Source Exposure to 2022-08-24 2022-09-03 Not sure University SARS-CoV-2 (event) 00:00:00 11:12:00 [facility] Tobacco Comment 2022-06-17 2022-06-17 10 years ago Univers ity of 00:00:00 00:00:00 [facility] Cigarettes smoked 2022-06-17 2022-06-17 Univers ity of current (pack per 00:00:00 00:00:00 [facility] [place] [facility] ) - Reported Branch Cigarette 2022-06-17 2022-06-17 University of pack-years 00:00:00 00:00:00 [facility] Tobacco use and 2022-06-17 2022-06-17 Smokeless Universit y of exposure 00:00:00 00:00:00 tobacco non-user [facility] Alcohol intake 2022-06-17 2022-06-17 0 /d University of 00:00:00 00:00:00 [facility] History of tobacco 1982-10-20 2007-10-20 Cigarette Smoker University of use 00:00:00 00:00:00 [facility] Sex [birth year] At [birth year] Universit y of 00:00:00 00:00:00 [facility] Smoking Status Start Date Stop Date Source Ex-smoker 2022-06-17 00:00:00 2022-06-17 00:00:00 Universi ty of [facility] Medications Ordered Filled Start Stop Current Ordering Indication Dosage Frequency Signature Comments Components Source Medication Medication Date Date Medication? Clinician (SIG) Name Name pregabalin 2021-09 Yes [id number] 150mg Take 1 Univers 150 mg 2-14 capsule by ity of capsule 00:00: mouth in [place] [address] the Medical morning Branch and 1 capsule at noon and 1 capsule in the evening. pregabalin 2021-09 Yes [id number] 150mg Take 1 Univers 150 mg 2-14 capsule by ity of capsule 00:00: mouth in [place] [address] the Medical morning Branch and 1 capsule at noon and 1 capsule in the evening. pregabalin 2021-09 Yes [id number] 150mg Take 1 Univers 150 mg 2-14 capsule by ity of capsule 00:00: mouth in [place] 00 the Medical morning Branch and 1 capsule at noon and 1 capsule in the evening. pregabalin 2021-09 Yes [id number] 150mg Take 1 Univers 150 mg 2-14 capsule by ity of capsule 00:00: mouth in [place] 00 the Medical morning Branch and 1 capsule at noon and 1 capsule in the evening. montelukast 2021-09 Yes [id number] 10mg Take 1 Univers (SINGULAIR) 2-09 tablet by ity of 10 mg 00:00: mouth in [place] tablet 00 the Medical morning. [place] montelukast 2021-09 Yes [id number] 10mg Take 1 Univers (SINGULAIR) 2-09 tablet by ity of 10 mg 00:00: mouth in [place] tablet 00 the Medical morning. [place] montelukast 2021-09 Yes [id number] 10mg Take 1 Univers (SINGULAIR) 2-09 tablet by ity of 10 mg 00:00: mouth in [place] tablet 00 the Medical morning. [place] montelukast 2021-09 Yes [id number] 10mg Take 1 Univers (SINGULAIR) 2-09 tablet by ity of 10 mg 00:00: mouth in [place] tablet 00 the Medical morning. [place] montelukast 2021-09 Yes [id number] 10mg Take 1 Univers (SINGULAIR) 2-09 tablet by ity of 10 mg 00:00: mouth in [place] tablet 00 the Medical morning. [place] montelukast 2021-09 Yes [id number] 10mg Take 1 Univers (SINGULAIR) 2-09 tablet by ity of 10 mg 00:00: mouth in [place] tablet 00 the Medical morning. [place] montelukast 2021-09 Yes [id number] 10mg Take 1 Univers (SINGULAIR) 2-09 tablet by ity of 10 mg 00:00: mouth in [place] tablet 00 the Medical morning. [place] montelukast 2021-09 Yes [id number] 10mg Take 1 Univers (SINGULAIR) 2-09 tablet by ity of 10 mg 00:00: mouth in [place] tablet 00 the Medical morning. [place] CYANOCOBALA 2021-09 Yes [id number] INJECT 1ML Univers MIN 1,000 1-30 INTRAMUSCU ity of mcg/mL 00:00: LARLY [place] injection 00 EVERY TWO Medic al WEEKS Branch CYANOCOBALA 2021-09 Yes [id number] INJECT 1ML Univers MIN 1,000 1-30 INTRAMUSCU ity of mcg/mL 00:00: LARLY [place] injection 00 EVERY TWO Medic al WEEKS Branch CYANOCOBALA 2021-09 Yes [id number] INJECT 1ML Univers MIN 1,000 1-30 INTRAMUSCU ity of mcg/mL 00:00: LARLY [place] injection 00 EVERY TWO Medic al WEEKS Branch CYANOCOBALA 2021-09 Yes [id number] INJECT 1ML Univers MIN 1,000 1-30 INTRAMUSCU ity of mcg/mL 00:00: LARLY [place] injection 00 EVERY TWO Medic al WEEKS Branch CYANOCOBALA 2021-09 Yes [id number] INJECT 1ML Univers MIN 1,000 1-30 INTRAMUSCU ity of mcg/mL 00:00: LARLY [place] injection 00 EVERY TWO Medic al WEEKS Branch CYANOCOBALA 2021-09 Yes [id number] INJECT 1ML Univers MIN 1,000 1-30 INTRAMUSCU ity of mcg/mL 00:00: LARLY [place] injection 00 EVERY TWO Medic al WEEKS Branch CYANOCOBALA 2021-09 Yes [id number] INJECT 1ML Univers MIN 1,000 1-30 INTRAMUSCU ity of mcg/mL 00:00: LARLY [place] injection 00 EVERY TWO Medic al WEEKS Branch CYANOCOBALA 2021-09 Yes [id number] INJECT 1ML Univers MIN 1,000 1-30 INTRAMUSCU ity of mcg/mL 00:00: LARLY [place] injection 00 EVERY TWO Medic al WEEKS Branch CYANOCOBALA 2021-09 Yes [id number] INJECT 1ML Univers MIN 1,000 1-30 INTRAMUSCU ity of mcg/mL 00:00: LARLY [place] injection 00 EVERY TWO Medic al WEEKS Branch levothyroxi 2021-09 Yes [id number] 50ug Take 1 Univers ne 50 mcg 1-03 tablet by ity o f tablet 00:00: mouth [place] 00 every Medical morning. Branch levothyroxi 2021-09 Yes [id number] 50ug Take 1 Univers ne 50 mcg 1-03 tablet by ity o f tablet 00:00: mouth [place] 00 every Medical morning. Branch levothyroxi 2021-09 Yes [id number] 50ug Take 1 Univers ne 50 mcg 1-03 tablet by ity o f tablet 00:00: mouth [place] 00 every Medical morning. Branch levothyroxi 2021-09 Yes [id number] 50ug Take 1 Univers ne 50 mcg 1-03 tablet by ity o f tablet 00:00: mouth [place] 00 every Medical morning. Branch levothyroxi 2021-09 Yes [id number] 50ug Take 1 Univers ne 50 mcg 1-03 tablet by ity o f tablet 00:00: mouth [place] 00 every Medical morning. Branch levothyroxi 2021-09 Yes [id number] 50ug Take 1 Univers ne 50 mcg 1-03 tablet by ity o f tablet 00:00: mouth [place] 00 every Medical morning. Branch levothyroxi 2021-09 Yes [id number] 50ug Take 1 Univers ne 50 mcg 1-03 tablet by ity o f tablet 00:00: mouth [place] 00 every Medical morning. Branch levothyroxi 2021-09 Yes [id number] 50ug Take 1 Univers ne 50 mcg 1-03 tablet by ity o f tablet 00:00: mouth [place] 00 every Medical morning. Branch levothyroxi 2021-09 Yes [id number] 50ug Take 1 Univers ne 50 mcg 1-03 tablet by ity o f tablet 00:00: mouth [place] 00 every Medical morning. Branch levothyroxi 2021-09 Yes [id number] 50ug Take 1 Univers ne 50 mcg 1-03 tablet by ity o f tablet 00:00: mouth [place] 00 every Medical morning. Branch levothyroxi 2021-09 Yes [id number] 50ug Take 1 Univers ne 50 mcg 1-03 tablet by ity o f tablet 00:00: mouth [place] 00 every Medical morning. Branch levothyroxi 2021-09 Yes [id number] 50ug Take 1 Univers ne 50 mcg 1-03 tablet by ity o f tablet 00:00: mouth [place] 00 every Medical morning. Branch levothyroxi 2021-09 Yes [id number] 50ug Take 1 Univers ne 50 mcg 1-03 tablet by ity o f tablet 00:00: mouth [place] 00 every Medical morning. Branch levothyroxi 2021-09 Yes [id number] 50ug Take 1 Univers ne 50 mcg 1-03 tablet by ity o f tablet 00:00: mouth [place] 00 every Medical morning. Branch levothyroxi 2021-09 Yes [id number] 50ug Take 1 Univers ne 50 mcg 1-03 tablet by ity o f tablet 00:00: mouth 00 every Medical morning. Branch levothyroxi 2021-09 Yes [id number] 50ug Take 1 Univers ne 50 mcg [...] Branch [facility]USATE 2021-09 [facility] mouth. ity of (COLACE 08:06: [place] ORAL) 37 Medical Branch DOCUSATE 2021-09 Yes [facility]-01 mouth. ity of (COLACE 08:06: [place] ORAL) 37 Medical Branch DOCUSATE 2021-09 Yes Take by [facility] s SODIUM 1- mouth. ity of (COLACE 08:06: [place] ORAL) 37 Medical Branch DOCUSATE 2021-09 Yes Take by [facility] s SODIUM 1- mouth. ity of (COLACE 08:06: [place] ORAL) 37 Medical Branch DOCUSATE 2021-09 Yes [facility]- mouth. ity of (COLACE 08:06: [place] ORAL) 37 Medical Branch DOCUSATE 2021-09 Yes [facility] SODIUM 1- mouth. ity of (COLACE 08:06: [place] ORAL) 37 Medical Branch DOCUSATE 2021-09 Yes Take [facility] SODIUM 1- mouth. ity of (COLACE 08:06: [place] ORAL) Medical Branch diltiazem 2021-09 Yes [id number] 120mg Take 1 U nivers 120 mg 24 09-26 capsule by ity of hr capsule 00:00: mouth in [facility] as 00 the Medical morning Branch and 1 capsule in the evening. fluticasone 2021-09 Yes [id number] 2{puff} Inhale 2 Univers propionate 1-01 Puffs ity of (FLOVENT 00:00: every 12 [place] HFA) 110 00 (twelve) Medical mcg/actuati hours. Branch on inhaler Rinse mouth after each use. levothyroxi 2021-09 Yes [id number] 50ug Take 1 Univers ne 50 mcg 1-01 tablet by ity o f tablet 00:00: mouth [place] 00 every Medical morning. Branch metformin 2021-09 Yes [id number] 500mg Take 1 U nivers ER 500 mg 1-01 tablet by ity o f 24 hr 00:00: mouth [place] tablet 00 daily with Medical breakfast. Branch pantoprazol 2021-09 Yes [id number] 40mg Take 1 Univers e 40 mg EC 09-26 tablet by ity of tablet 00:00: mouth in [place] 00 the Medical morning. Branch pregabalin 2021-09 Yes [id number] 150mg Take 1 Univers 150 mg 1-01 capsule by ity of capsule 00:00: mouth in [place] 00 the Medical morning Branch and 1 capsule at noon and 1 capsule in the evening. rosuvastati 2021-09 Yes [id number] 10mg Take 1 Univers n 10 mg 1-01 tablet by ity of tablet 00:00: mouth at [place] 00 bedtime. Medical Branch SUMAtriptan 2021-09 Yes [id number] 50mg Take 1 Univers 50 mg 1-01 tablet by ity of tablet 00:00: mouth as [place] 00 needed for Medical Migraine. Branch diltiazem 2021-09 Yes [id number] 120mg Take 1 U nivers 120 mg 24 1- capsule by ity of hr capsule 00:00: mouth in [place] 00 the Medical morning Branch and 1 capsule in the evening. fluticasone 2021-09 Yes [id number] 2{puff} Inhale 2 Univers propionate 1-01 Puffs ity of (FLOVENT 00:00: every 12 [place] HFA) 110 00 (twelve) Medical mcg/actuati hours. Branch on inhaler Rinse mouth after each use. levothyroxi 2021-09 Yes [id number] 50ug Take 1 Univers ne 50 mcg 1-01 tablet by ity o f tablet 00:00: mouth [place] 00 every Medical morning. Branch metformin 2021-09 Yes [id number] 500mg Take 1 U nivers ER 500 mg 1-01 tablet by ity o f 24 hr 00:00: mouth [place] tablet 00 daily with Medical breakfast. Branch pantoprazol 2021-09 Yes [id number] 40mg Take 1 Univers e 40 mg EC 1-01 tablet by ity of tablet 00:00: mouth in [place] 00 the Medical morning. Branch pregabalin 2021-09 Yes [id number] 150mg Take 1 Univers 150 mg 1-01 capsule by ity of capsule 00:00: mouth in [place] 00 the Medical morning Branch and 1 capsule at noon and 1 capsule in the evening. rosuvastati 2021-09 Yes [id number] 10mg Take 1 Univers n 10 mg 1-01 tablet by ity of tablet 00:00: mouth at [place] [address] bedtime. Medical Branch SUMAtriptan 2021-09 Yes [id number] 50mg Take 1 Univers 50 mg 1-01 tablet by ity of tablet 00:00: mouth as [place] 00 needed for Medical Migraine. Branch diltiazem 2021-09 Yes [id number] 120mg Take 1 U nivers 120 mg 24 1-01 capsule by ity of hr capsule 00:00: mouth in [place] as 00 the Medical morning Branch and 1 capsule in the evening. fluticasone 2021-09 Yes [id number] 2{puff} Inhale 2 Univers propionate 1-01 Puffs ity of (FLOVENT 00:00: every 12 [place] HFA) 110 00 (twelve) Medical mcg/actuati hours. Branch on inhaler Rinse mouth after each use. metformin 2021-09 Yes [id number] 500mg Take 1 U nivers ER 500 mg 1-01 tablet by ity o f 24 hr 00:00: mouth [place] tablet 00 daily with Medical breakfast. Branch pantoprazol 2021-09 Yes [id number] 40mg Take 1 Univers e 40 mg EC 1-01 tablet by ity of tablet 00:00: mouth in [place] 00 the Medical morning. Branch pregabalin 2021-09 Yes [id number] 150mg Take 1 Univers 150 mg 1-01 capsule by ity of capsule 00:00: mouth in [place] 00 the Medical morning Branch and 1 capsule at noon and 1 capsule in the evening. rosuvastati 2021-09 Yes [id number] 10mg Take 1 Univers n 10 mg 1-01 tablet by ity of tablet 00:00: mouth at [place] 00 bedtime. Medical Branch SUMAtriptan 2021-09 Yes [id number] 50mg Take 1 Univers 50 mg 1-01 tablet by ity of tablet 00:00: mouth as [place] 00 needed for Medical Migraine. Branch diltiazem 2021-09 Yes [id number] 120mg Take 1 U nivers 120 mg 24 1-01 capsule by ity of hr capsule 00:00: mouth in [place] as 00 the Medical morning Branch and 1 capsule in the evening. fluticasone 2021-09 Yes [id number] 2{puff} Inhale 2 Univers propionate 1-01 Puffs ity of (FLOVENT 00:00: every 12 [place] HFA) 110 00 (twelve) Medical mcg/actuati hours. Branch on inhaler Rinse mouth after each use. metformin 2021-09 Yes [id number] 500mg Take 1 U nivers ER 500 mg 1-01 tablet by ity o f 24 hr 00:00: mouth [place] tablet 00 daily with Medical breakfast. Branch pantoprazol 2021-09 Yes [id number] 40mg Take 1 Univers e 40 mg EC 1-01 tablet by ity of tablet 00:00: mouth in [place] 00 the Medical morning. Branch pregabalin 2021-09 Yes [id number] 150mg Take 1 Univers 150 mg 1-01 capsule by ity of capsule 00:00: mouth in [place] 00 the Medical morning Branch and 1 capsule at noon and 1 capsule in the evening. rosuvastati 2021-09 Yes [id number] 10mg Take 1 Univers n 10 mg 1-01 tablet by ity of tablet 00:00: mouth at [place] [address] bedtime. Medical Branch SUMAtriptan 2021-09 Yes [id number] 50mg Take 1 Univers 50 mg 1-01 tablet by ity of tablet 00:00: mouth as [place] [address] needed for Medical Migraine. Branch diltiazem 2021-09 Yes [id number] 120mg Take 1 U nivers 120 mg 24 1- capsule by ity of hr capsule 00:00: mouth in [facility] as 00 the Medical morning Branch and 1 capsule in the evening. fluticasone 2021-09 Yes [id number] 2{puff} Inhale 2 Univers propionate 1-01 Puffs ity of (FLOVENT 00:00: every 12 [place] HFA) 110 00 (twelve) Medical mcg/actuati hours. Branch on inhaler Rinse mouth after each use. metformin 2021-09 Yes [id number] 500mg Take 1 U nivers ER 500 mg 1-01 tablet by ity o f 24 hr 00:00: mouth [place] tablet 00 daily with Medical breakfast. Branch pantoprazol 2021-09 Yes [id number] 40mg Take 1 Univers e 40 mg EC 1-01 tablet by ity of tablet 00:00: mouth in [place] 00 the Medical morning. Branch pregabalin 2021-09 Yes [id number] 150mg Take 1 Univers 150 mg 1-01 capsule by ity of capsule 00:00: mouth in [place] 00 the Medical morning Branch and 1 capsule at noon and 1 capsule in the evening. rosuvastati 2021-09 Yes [id number] 10mg Take 1 Univers n 10 mg 1-01 tablet by ity of tablet 00:00: mouth at [place] 00 bedtime. Medical Branch SUMAtriptan 2021-09 Yes [id number] 50mg Take 1 Univers 50 mg 1-01 tablet by ity of tablet 00:00: mouth as [place] 00 needed for Medical Migraine. Branch diltiazem 2021-09 Yes [id number] 120mg Take 1 U nivers 120 mg 24 1-01 capsule by ity of hr capsule 00:00: mouth in [place] as 00 the Medical morning Branch and 1 capsule in the evening. fluticasone 2021-09 Yes [id number] 2{puff} Inhale 2 Univers propionate 1-01 Puffs ity of (FLOVENT 00:00: every 12 [place] HFA) 110 00 (twelve) Medical mcg/actuati hours. Branch on inhaler Rinse mouth after each use. metformin 2021-09 Yes [id number] 500mg Take 1 U nivers ER 500 mg 1-01 tablet by ity o f 24 hr 00:00: mouth [place] tablet 00 daily with Medical breakfast. Branch pantoprazol 2021-09 Yes [id number] 40mg Take 1 Univers e 40 mg EC 1-01 tablet by ity of tablet 00:00: mouth in [place] 00 the Medical morning. Branch pregabalin 2021-09 Yes [id number] 150mg Take 1 Univers 150 mg 1-01 capsule by ity of capsule 00:00: mouth in [place] 00 the Medical morning Branch and 1 capsule at noon and 1 capsule in the evening. rosuvastati 2021-09 Yes [id number] 10mg Take 1 Univers n 10 mg 1-01 tablet by ity of tablet 00:00: mouth at [place] [address] bedtime. Medical Branch SUMAtriptan 2021-09 Yes [id number] 50mg Take 1 Univers 50 mg 1-01 tablet by ity of tablet 00:00: mouth as [place] 00 needed for Medical Migraine. Branch diltiazem 2021-09 Yes [id number] 120mg Take 1 U nivers 120 mg 24 1-01 capsule by ity of hr capsule 00:00: mouth in [place] as 00 the Medical morning Branch and 1 capsule in the evening. fluticasone 2021-09 Yes [id number] 2{puff} Inhale 2 Univers propionate 1-01 Puffs ity of (FLOVENT 00:00: every 12 [place] HFA) 110 00 (twelve) Medical mcg/actuati hours. Branch on inhaler Rinse mouth after each use. metformin 2021-09 Yes [id number] 500mg Take 1 U nivers ER 500 mg 1-01 tablet by ity o f 24 hr 00:00: mouth [place] tablet 00 daily with Medical breakfast. Branch pantoprazol 2021-09 Yes [id number] 40mg Take 1 Univers e 40 mg EC 1-01 tablet by ity of tablet 00:00: mouth in [place] 00 the Medical morning. Branch pregabalin 2021-09 Yes [id number] 150mg Take 1 Univers 150 mg 1-01 capsule by ity of capsule 00:00: mouth in [place] 00 the Medical morning Branch and 1 capsule at noon and 1 capsule in the evening. rosuvastati 2021-09 Yes [id number] 10mg Take 1 Univers n 10 mg 1-01 tablet by ity of tablet 00:00: mouth at [place] [address] bedtime. Medical Branch SUMAtriptan 2021-09 Yes [id number] 50mg Take 1 Univers 50 mg 1-01 tablet by ity of tablet 00:00: mouth as [place] 00 needed for Medical Migraine. Branch diltiazem 2021-09 Yes [id number] 120mg Take 1 U nivers 120 mg 24 1-01 capsule by ity of hr capsule 00:00: mouth in [facility] as 00 the Medical morning Branch and 1 capsule in the evening. fluticasone 2021-09 Yes [id number] 2{puff} Inhale 2 Univers propionate 1-01 Puffs ity of (FLOVENT 00:00: every 12 [facility]) 110 00 (twelve) Medical mcg/actuati hours. Branch on inhaler Rinse mouth after each use. metformin 2021-09 Yes [id number] 500mg Take 1 U nivers ER 500 mg 1-01 tablet by ity o f 24 hr 00:00: mouth [place] tablet 00 daily with Medical breakfast. Branch pantoprazol 2021-09 Yes [id number] 40mg Take 1 Univers e 40 mg EC 1-01 tablet by ity of tablet 00:00: mouth in [place] 00 the Medical morning. Branch pregabalin 2021-09 Yes [id number] 150mg Take 1 Univers 150 mg 1-01 capsule by ity of capsule 00:00: mouth in [place] 00 the Medical morning Branch and 1 capsule at noon and 1 capsule in the evening. rosuvastati 2021-09 Yes [id number] 10mg Take 1 Univers n 10 mg 1-01 tablet by ity of tablet 00:00: mouth at [place] 00 bedtime. Medical Branch SUMAtriptan 2021-09 Yes [id number] 50mg Take 1 Univers 50 mg 1-01 tablet by ity of tablet 00:00: mouth as [place] 00 needed for Medical Migraine. Branch diltiazem 2021-09 Yes [id number] 120mg Take 1 U nivers 120 mg 24 1-01 capsule by ity of hr capsule 00:00: mouth in [place] as 00 the Medical morning Branch and 1 capsule in the evening. fluticasone 2021-09 Yes [id number] 2{puff} Inhale 2 Univers propionate 1-01 Puffs ity of (FLOVENT 00:00: every 12 [place] HFA) 110 00 (twelve) Medical mcg/actuati hours. Branch on inhaler Rinse mouth after each use. metformin 2021-09 Yes [id number] 500mg Take 1 U nivers ER 500 mg 1-01 tablet by ity o f 24 hr 00:00: mouth [place] tablet 00 daily with Medical breakfast. Branch pantoprazol 2021-09 Yes [id number] 40mg Take 1 Univers e 40 mg EC 1-01 tablet by ity of tablet 00:00: mouth in [place] 00 the Medical morning. Branch pregabalin 2021-09 Yes [id number] 150mg Take 1 Univers 150 mg 1-01 capsule by ity of capsule 00:00: mouth in [place] 00 the Medical morning Branch and 1 capsule at noon and 1 capsule in the evening. rosuvastati 2021-09 Yes [id number] 10mg Take 1 Univers n 10 mg 1-01 tablet by ity of tablet 00:00: mouth at [place] [address] bedtime. Medical Branch SUMAtriptan 2021-09 Yes [id number] 50mg Take 1 Univers 50 mg 1-01 tablet by ity of tablet 00:00: mouth as [place] 00 needed for Medical Migraine. Branch diltiazem 2021-09 Yes [id number] 120mg Take 1 U nivers 120 mg 24 1-01 capsule by ity of hr capsule 00:00: mouth in [facility] as 00 the Medical morning Branch and 1 capsule in the evening. fluticasone 2021-09 Yes [id number] 2{puff} Inhale 2 Univers propionate 1-01 Puffs ity of (FLOVENT 00:00: every 12 [place] HF) 110 00 (twelve) Medical mcg/actuati hours. Branch on inhaler Rinse mouth after each use. metformin 2021-09 Yes [id number] 500mg Take 1 U nivers ER 500 mg 1-01 tablet by ity o f 24 hr 00:00: mouth [place] tablet 00 daily with Medical breakfast. Branch pantoprazol 2021-09 Yes [id number] 40mg Take 1 Univers e 40 mg EC 1-01 tablet by ity of tablet 00:00: mouth in [place] 00 the Medical morning. Branch pregabalin 2021-09 Yes [id number] 150mg Take 1 [facility] 150 mg 1-01 capsule by ity of capsule 00:00: mouth in [place] 00 the Medical morning Branch and 1 capsule at noon and 1 capsule in the evening. rosuvastati 2021-09 Yes [id number] 10mg Take 1 [facility] n 10 mg 1-01 tablet by ity of tablet 00:00: mouth at [place] 00 bedtime. Medical Branch SUMAtriptan 2021-09 Yes [id number] 50mg Take 1 [facility] 50 mg 1-01 tablet by ity of tablet 00:00: mouth as [place] 00 needed for Medical Migraine. Branch diltiazem 2021-09 Yes [id number] 120mg Take 1 U nivers 120 mg 24 1-01 capsule by ity of hr capsule 00:00: mouth in [facility] as 00 the Medical morning Branch and 1 capsule in the evening. fluticasone 2021-09 Yes [id number] 2{puff} Inhale 2 [facility] propionate 1-01 Puffs ity of (FLOVENT 00:00: every 12 [place] HFA) 110 00 (twelve) Medical mcg/actuati hours. Branch on inhaler Rinse mouth after each use. metformin 2021-09 Yes [id number] 500mg Take 1 U nivers ER 500 mg 1-01 tablet by ity o f 24 hr 00:00: mouth [place] tablet 00 daily with Medical breakfast. Branch pantoprazol 2021-09 Yes [id number] 40mg Take 1 [facility] e 40 mg EC 1-01 tablet by ity of tablet 00:00: mouth in [place] 00 the Medical morning. Branch pregabalin 2021-09 Yes [id number] 150mg Take 1 [facility] 150 mg 1-01 capsule by ity of capsule 00:00: mouth in [place] 00 the Medical morning Branch and 1 capsule at noon and 1 capsule in the evening. rosuvastati 2021-09 Yes [id number] 10mg Take 1 [facility] n 10 mg 1-01 tablet by ity of tablet 00:00: mouth at [place] 00 bedtime. Medical Branch SUMAtriptan 2021-09 Yes [id number] 50mg Take 1 [facility] 50 mg 1-01 tablet by ity of tablet 00:00: mouth as [place] 00 needed for Medical Migraine. Branch diltiazem 2021-09 Yes [id number] 120mg Take 1 U nivers 120 mg 24 1-01 capsule by ity of hr capsule 00:00: mouth in [place] as 00 the Medical morning Branch and 1 capsule in the evening. fluticasone 2021-09 Yes [id number] 2{puff} Inhale 2 [facility] propionate 1-01 Puffs ity of (FLOVENT 00:00: every 12 [place] HFA) 110 00 (twelve) Medical mcg/actuati hours. Branch on inhaler Rinse mouth after each use. metformin 2021-09 Yes [id number] 500mg Take 1 U nivers ER 500 mg 1-01 tablet by ity o f 24 hr 00:00: mouth [place] tablet 00 daily with Medical breakfast. Branch pantoprazol 2021-09 Yes [id number] 40mg Take 1 [facility] e 40 mg EC 1-01 tablet by ity of tablet 00:00: mouth in [place] 00 the Medical morning. Branch pregabalin 2021-09 Yes [id number] 150mg Take 1 [facility] 150 mg 1-01 capsule by ity of capsule 00:00: mouth in [place] 00 the Medical morning Branch and 1 capsule at noon and 1 capsule in the evening. rosuvastati 2021-09 Yes [id number] 10mg Take 1 [facility] n 10 mg 1-01 tablet by ity of tablet 00:00: mouth at [place] 00 bedtime. Medical Branch SUMAtriptan 2021-09 Yes [id number] 50mg Take 1 [facility] 50 mg 1-01 tablet by ity of tablet 00:00: mouth as [place] 00 needed for Medical Migraine. Branch diltiazem 2021-09 Yes [id number] 120mg Take 1 [facility] nivers 120 mg 24 1-01 capsule by ity of hr capsule 00:00: mouth in [place] as 00 the Medical morning Branch and 1 capsule in the evening. fluticasone 2021-09 Yes [id number] 2{puff} Inhale 2 [facility] propionate 1-01 Puffs ity of (FLOVENT 00:00: every 12 [facility]) 110 00 (twelve) Medical mcg/actuati hours. Branch on inhaler Rinse mouth after each use. metformin 2021-09 Yes [id number] 500mg Take 1 U nivers ER 500 mg 1-01 tablet by ity o f 24 hr 00:00: mouth [place] tablet 00 daily with Medical breakfast. Branch pantoprazol 2021-09 Yes [id number] 40mg Take 1 [facility] e 40 mg EC 1-01 tablet by ity of tablet 00:00: mouth in [place] 00 the Medical morning. Branch pregabalin 2021-09 Yes [id number] 150mg Take 1 [facility] 150 mg 1-01 capsule by ity of capsule 00:00: mouth in [place] 00 the Medical morning Branch and 1 capsule at noon and 1 capsule in the evening. rosuvastati 2021-09 Yes [id number] 10mg Take 1 [facility] n 10 mg 1-01 tablet by ity of tablet 00:00: mouth at [place] 00 bedtime. Medical Branch SUMAtriptan 2021-09 Yes [id number] 50mg Take 1 [facility] 50 mg 1-01 tablet by ity of tablet 00:00: mouth as [place] 00 needed for Medical Migraine. Branch diltiazem 2021-09 Yes [id number] 120mg Take 1 [facility] nivers 120 mg 24 1-01 capsule by ity of hr capsule 00:00: mouth in [facility] as 00 the Medical morning Branch and 1 capsule in the evening. fluticasone 2021-09 Yes [id number] 2{puff} Inhale 2 [facility] propionate 1-01 Puffs ity of (FLOVENT 00:00: every 12 [facility]) 110 00 (twelve) Medical mcg/actuati hours. Branch on inhaler Rinse mouth after each use. metformin 2021-09 Yes [id number] 500mg Take 1 U nivers ER 500 mg 1-01 tablet by ity o f 24 hr 00:00: mouth [place] tablet 00 daily with Medical breakfast. Branch pantoprazol 2021-09 Yes [id number] 40mg Take 1 [facility] e 40 mg EC 1-01 tablet by ity of tablet 00:00: mouth in [place] 00 the Medical morning. Branch rosuvastati 2021-09 Yes [id number] 10mg Take 1 [facility] n 10 mg 1-01 tablet by ity of tablet 00:00: mouth at [place] 00 bedtime. Medical Branch SUMAtriptan 2021-09 Yes [id number] 50mg Take 1 [facility] 50 mg 1-01 tablet by ity of tablet 00:00: mouth as [place] 00 needed for Medical Migraine. Branch diltiazem 2021-09 Yes [id number] 120mg Take 1 [facility] nivers 120 mg 24 1-01 capsule by ity of hr capsule 00:00: mouth in [place] as 00 the Medical morning Branch and 1 capsule in the evening. fluticasone 2021-09 Yes [id number] 2{puff} Inhale 2 [facility] propionate 1-01 Puffs ity of (FLOVENT 00:00: every 12 [place] HF) 110 00 (twelve) Medical mcg/actuati hours. Branch on inhaler Rinse mouth after each use. metformin 2021-09 Yes [id number] 500mg Take 1 U nivers ER 500 mg 1-01 tablet by ity o f 24 hr 00:00: mouth [place] tablet 00 daily with Medical breakfast. Branch pantoprazol 2021-09 Yes [id number] 40mg Take 1 [facility] e 40 mg EC 1-01 tablet by ity of tablet 00:00: mouth in [place] 00 the Medical morning. Branch rosuvastati 2021-09 Yes [id number] 10mg Take 1 [facility] n 10 mg 1-01 tablet by ity of tablet 00:00: mouth at [place] 00 bedtime. Medical Branch SUMAtriptan 2021-09 Yes [id number] 50mg Take 1 [facility] 50 mg 1-01 tablet by ity of tablet 00:00: mouth as [place] 00 needed for Medical Migraine. Branch diltiazem 2021-09 Yes [id number] 120mg Take 1 [facility] nivers 120 mg 24 1-01 capsule by ity of hr capsule 00:00: mouth in [place] as 00 the Medical morning Branch and 1 capsule in the evening. fluticasone 2021-09 Yes [id number] 2{puff} Inhale 2 [facility] propionate 1-01 Puffs ity of (FLOVENT 00:00: every 12 [place] HFA) 110 00 (twelve) Medical mcg/actuati hours. Branch on inhaler Rinse mouth after each use. metformin 2021-09 Yes [id number] 500mg Take 1 U nivers ER 500 mg 1-01 tablet by ity o f 24 hr 00:00: mouth [place] tablet 00 daily with Medical breakfast. Branch pantoprazol 2021-09 Yes [id number] 40mg Take 1 [facility] e 40 mg EC 1-01 tablet by ity of tablet 00:00: mouth in [place] 00 the Medical morning. Branch rosuvastati 2021-09 Yes [id number] 10mg Take 1 [facility] n 10 mg 1-01 tablet by ity of tablet 00:00: mouth at [place] 00 bedtime. Medical Branch SUMAtriptan 2021-09 Yes [id number] 50mg Take 1 [facility] 50 mg 1-01 tablet by ity of tablet 00:00: mouth as [place] 00 needed for Medical Migraine. Branch diltiazem 2021-09 Yes [id number] 120mg Take 1 [facility] nivers 120 mg 24 1-01 capsule by ity of hr capsule 00:00: mouth in [place] as 00 the Medical morning Branch and 1 capsule in the evening. fluticasone 2021-09 Yes [id number] 2{puff} Inhale 2 [facility] propionate 1-01 Puffs ity of (FLOVENT 00:00: every 12 [place] HFA) 110 00 (twelve) Medical mcg/actuati hours. Branch on inhaler Rinse mouth after each use. metformin 2021-09 Yes [id number] 500mg Take 1 U nivers ER 500 mg 1-01 tablet by ity o f 24 hr 00:00: mouth [place] tablet 00 daily with Medical breakfast. Branch pantoprazol 2021-09 Yes [id number] 40mg Take 1 [facility] e 40 mg EC 1-01 tablet by ity of tablet 00:00: mouth in [place] 00 the Medical morning. Branch rosuvastati 2021-09 Yes [id number] 10mg Take 1 [facility] n 10 mg 1-01 tablet by ity of tablet 00:00: mouth at [place] [address] bedtime. Medical Branch SUMAtriptan 2021-09 Yes [id number] 50mg Take 1 [facility] 50 mg 1-01 tablet by ity of tablet 00:00: mouth as [place] 00 needed for Medical Migraine. Branch diltiazem 2021-09 Yes [id number] 120mg Take 1 [facility] nivers 120 mg 24 - capsule by ity of hr capsule 00:00: mouth in [place] as 00 the Medical morning Branch and 1 capsule in the evening. fluticasone 2021-09 Yes [id number] 2{puff} Inhale 2 [facility] propionate 1-01 Puffs ity of (FLOVENT 00:00: every 12 [place] HFA) 110 00 (twelve) Medical mcg/actuati hours. Branch on inhaler Rinse mouth after each use. metformin 2021-09 Yes [id number] 500mg Take 1 U nivers ER 500 mg - tablet by ity o f 24 hr 00:00: mouth [place] tablet 00 daily with Medical breakfast. Branch pantoprazol 2021-09 Yes [id number] 40mg Take 1 [facility] e 40 mg EC 09-26 tablet by ity of tablet 00:00: mouth in [place] 00 the Medical morning. Branch rosuvastati 2021-09 Yes [id number] 10mg Take 1 [facility] n 10 mg 09-26 tablet by ity of tablet 00:00: mouth at [place] 00 bedtime. Medical Branch SUMAtriptan 2021-09 Yes [id number] 50mg Take 1 [facility] 50 mg 09-26 tablet by ity of tablet 00:00: mouth as [place] 00 needed for Medical Migraine. Branch pregabalin 2021-09- No [id number] 150mg Take 1 [facility] 150 mg 09-26 12-14 capsule by ity of capsule 00:00: 00:00 mouth in [place] 00 :00 the Medical morning Branch and 1 capsule at noon and 1 capsule in the evening. levothyroxi 2021-09- No [id number] 50ug Take 1 [facility] ne 50 mcg 09-26 tablet by ity of tablet 00:00: 00:00 mouth [place] 00 :00 every Medical morning. Branch levothyroxi 2021-09- No [id number] 50ug Take 1 [facility] ne 50 mcg 09-26 tablet by ity of tablet 00:00: 00:00 mouth [place] 00 :00 every Medical morning. Branch busPIRone 2021-09 Yes [id number] 20mg Take 2 [facility] [place] 10 mg 0-13 tablets by ity of tablet 00:00: mouth in [place] 00 the Medical morning Branch and 2 tablets in the evening. diltiazem 2021-09 Yes [id number] 120mg Take 1 U nivers 120 mg 24 0-13 capsule by ity of hr capsule 00:00: mouth in [place] as 00 the Medical morning Branch and 1 capsule in the evening. levothyroxi 2021-09 Yes [id number] 50ug Take 1 [facility] ne 50 mcg 0-13 tablet by ity o f tablet 00:00: mouth [place] 00 every Medical morning. Branch losartan 50 2021-09 Yes [id number] 50mg Take 1 [facility] mg tablet 0-13 tablet by ity o f 00:00: mouth in [place] 00 the Medical morning Branch and 1 tablet in the evening. metformin 2021-09 Yes [id number] 500mg Take 1 U nivers ER 500 mg 0-13 tablet by ity o f 24 hr 00:00: mouth [place] tablet 00 daily with Medical breakfast. Branch STOP REGULAR METFORMIN. mirabegron 2021-09 Yes [id number] 50mg Take 1 [facility] (MYRBETRIQ) 0-13 tablet by ity of 50 mg 00:00: mouth in [place] tablet 00 the Medical morning. Branch semaglutide 2021-09 Yes [id number] Inject [facility] (OZEMPIC) 0-13 0.25 mg ity of 0.25 mg or 00:00: under the [place] 0.5 mg(2 00 skin Medical mg/1.5 mL) weekly. Branch PnIj pantoprazol 2021-09 Yes [id number] 40mg Take 1 [facility] e 40 mg EC 0-13 tablet by ity of tablet 00:00: mouth in [place] 00 the Medical morning. Branch pregabalin 2021-09 Yes [id number] 150mg Take 1 [facility] 150 mg 0-13 capsule by ity of capsule 00:00: mouth in [place] 00 the Medical morning Branch and 1 capsule at noon and 1 capsule in the evening. rosuvastati 2021-09 Yes [id number] 10mg Take 1 [facility] n 10 mg 0-13 tablet by ity of tablet 00:00: mouth at [place] 00 bedtime. Medical Branch SUMAtriptan 2021-09 Yes [id number] 50mg Take 1 [facility] 50 mg 0-13 tablet by ity of tablet 00:00: mouth as [place] 00 needed for Medical Migraine. Branch topiramate 2021-09 Yes [id number] 75mg Take 3 [facility] 25 mg 0-13 tablets by ity of tablet 00:00: mouth in [place] 00 the Medical morning Branch and 3 tablets in the evening. busPIRone 2021-09 Yes [id number] 20mg Take 2 [facility] [place] 10 mg 0-13 tablets by ity of tablet 00:00: mouth in [place] 00 the Medical morning Branch and 2 tablets in the evening. losartan 50 2021-09 Yes [id number] 50mg Take 1 [facility] mg tablet 0-13 tablet by ity o f 00:00: mouth in [place] 00 the Medical morning Branch and 1 tablet in the evening. mirabegron 2021-09 Yes [id number] 50mg Take 1 [facility] (MYRBETRIQ) 0-13 tablet by ity of 50 mg 00:00: mouth in [place] tablet 00 the Medical morning. Branch semaglutide 2021-09 Yes [id number] Inject [facility] (OZEMPIC) 0-13 0.25 mg ity of 0.25 mg or 00:00: under the [place] 0.5 mg(2 00 skin Medical mg/1.5 mL) weekly. Branch PnIj topiramate 2021-09 Yes [id number] 75mg Take 3 [facility] 25 mg 0-13 tablets by ity of tablet 00:00: mouth in [place] 00 the Medical morning Branch and 3 tablets in the evening. busPIRone 2021-09 Yes [id number] 20mg Take 2 [facility] [place] 10 mg 0-13 tablets by ity of tablet 00:00: mouth in [place] 00 the Medical morning Branch and 2 tablets in the evening. losartan 50 2021-09 Yes [id number] 50mg Take 1 [facility] mg tablet 0-13 tablet by ity o f 00:00: mouth in [place] 00 the Medical morning Branch and 1 tablet in the evening. mirabegron 2021-09 Yes [id number] 50mg Take 1 [facility] (MYRBETRIQ) 0-13 tablet by ity of 50 mg 00:00: mouth in [place] tablet 00 the Medical morning. Branch semaglutide 2021-09 Yes [id number] Inject [facility] (OZEMPIC) 0-13 0.25 mg ity of 0.25 mg or 00:00: under the [place] 0.5 mg(2 00 skin Medical mg/1.5 mL) weekly. Branch PnIj topiramate 2021-09 Yes [id number] 75mg Take 3 [facility] 25 mg 0-13 tablets by ity of tablet 00:00: mouth in [place] 00 the Medical morning Branch and 3 tablets in the evening. busPIRone 2021-09 Yes [id number] 20mg Take 2 [facility] [place] 10 mg 0-13 tablets by ity of tablet 00:00: mouth in [place] 00 the Medical morning Branch and 2 tablets in the evening. losartan 50 2021-09 Yes [id number] 50mg Take 1 [facility] mg tablet 0-13 tablet by ity o f 00:00: mouth in [place] 00 the Medical morning Branch and 1 tablet in the evening. mirabegron 2021-09 Yes [id number] 50mg Take 1 [facility] (MYRBETRIQ) 0-13 tablet by ity of 50 mg 00:00: mouth in [place] tablet 00 the Medical morning. Branch semaglutide 2021-09 Yes [id number] Inject [facility] (OZEMPIC) 0-13 0.25 mg ity of 0.25 mg or 00:00: under the [place] 0.5 mg(2 00 skin Medical mg/1.5 mL) weekly. Branch PnIj topiramate 2021-09 Yes [id number] 75mg Take 3 [facility] 25 mg 0-13 tablets by ity of tablet 00:00: mouth in [place] 00 the Medical morning Branch and 3 tablets in the evening. busPIRone 2021-09 Yes [id number] 20mg Take 2 [facility] [place] 10 mg 0-13 tablets by ity of tablet 00:00: mouth in [place] 00 the Medical morning Branch and 2 tablets in the evening. losartan 50 2021-09 Yes [id number] 50mg Take 1 [facility] mg tablet 0-13 tablet by ity o f 00:00: mouth in [place] 00 the Medical morning Branch and 1 tablet in the evening. mirabegron 2021-09 Yes [id number] 50mg Take 1 [facility] (MYRBETRIQ) 0-13 tablet by ity of 50 mg 00:00: mouth in [place] tablet 00 the Medical morning. Branch semaglutide 2021-09 Yes [id number] Inject [facility] (OZEMPIC) 0-13 0.25 mg ity of 0.25 mg or 00:00: under the [place] 0.5 mg(2 00 skin Medical mg/1.5 mL) weekly. Branch PnIj topiramate 2021-09 Yes [id number] 75mg Take 3 [facility] 25 mg 0-13 tablets by ity of tablet 00:00: mouth in [place] 00 the Medical morning Branch and 3 tablets in the evening. busPIRone 2021-09 Yes [id number] 20mg Take 2 [facility] [place] 10 mg 0-13 tablets by ity of tablet 00:00: mouth in [place] 00 the Medical morning Branch and 2 tablets in the evening. losartan 50 2021-09 Yes [id number] 50mg Take 1 [facility] mg tablet 0-13 tablet by ity o f 00:00: mouth in [place] 00 the Medical morning Branch and 1 tablet in the evening. mirabegron 2021-09 Yes [id number] 50mg Take 1 [facility] (MYRBETRIQ) 0-13 tablet by ity of 50 mg 00:00: mouth in [place] tablet 00 the Medical morning. Branch semaglutide 2021-09 Yes [id number] Inject [facility] (OZEMPIC) 0-13 0.25 mg ity of 0.25 mg or 00:00: under the [place] 0.5 mg(2 00 skin Medical mg/1.5 mL) weekly. Branch PnIj topiramate 2021-09 Yes [id number] 75mg Take 3 [facility] 25 mg 0-13 tablets by ity of tablet 00:00: mouth in [place] 00 the Medical morning Branch and 3 tablets in the evening. busPIRone 2021-09 Yes [id number] 20mg Take 2 [facility] [place] 10 mg 0-13 tablets by ity of tablet 00:00: mouth in [place] 00 the Medical morning Branch and 2 tablets in the evening. losartan 50 2021-09 Yes [id number] 50mg Take 1 [facility] mg tablet 0-13 tablet by ity o f 00:00: mouth in [place] 00 the Medical morning Branch and 1 tablet in the evening. mirabegron 2021-09 Yes [id number] 50mg Take 1 [facility] (MYRBETRIQ) 0-13 tablet by ity of 50 mg 00:00: mouth in [place] tablet 00 the Medical morning. Branch semaglutide 2021-09 Yes [id number] Inject [facility] (OZEMPIC) 0-13 0.25 mg ity of 0.25 mg or 00:00: under the [place] 0.5 mg(2 00 skin Medical mg/1.5 mL) weekly. Branch PnIj topiramate 2021-09 Yes [id number] 75mg Take 3 [facility] 25 mg 0-13 tablets by ity of tablet 00:00: mouth in [place] 00 the Medical morning Branch and 3 tablets in the evening. busPIRone 2021-09 Yes [id number] 20mg Take 2 Un [place] 10 mg 0-13 tablets by ity of tablet 00:00: mouth in [place] 00 the Medical morning Branch and 2 tablets in the evening. losartan 50 2021-09 Yes [id number] 50mg Take 1 [facility] mg tablet 0-13 tablet by ity o f 00:00: mouth in [place] 00 the Medical morning Branch and 1 tablet in the evening. mirabegron 2021-09 Yes [id number] 50mg Take 1 [facility] (MYRBETRIQ) 0-13 tablet by ity of 50 mg 00:00: mouth in [place] tablet 00 the Medical morning. Branch semaglutide 2021-09 Yes [id number] Inject [facility] (OZEMPIC) 0-13 0.25 mg ity of 0.25 mg or 00:00: under the [place] 0.5 mg(2 00 skin Medical mg/1.5 mL) weekly. Branch PnIj topiramate 2021-09 Yes [id number] 75mg Take 3 [facility] 25 mg 0-13 tablets by ity of tablet 00:00: mouth in [place] 00 the Medical morning Branch and 3 tablets in the evening. busPIRone 2021-09 Yes [id number] 20mg Take 2 Un [place] 10 mg 0-13 tablets by ity of tablet 00:00: mouth in [place] 00 the Medical morning Branch and 2 tablets in the evening. losartan 50 2021-09 Yes [id number] 50mg Take 1 [facility] mg tablet 0-13 tablet by ity o f 00:00: mouth in [place] 00 the Medical morning Branch and 1 tablet in the evening. mirabegron 2021-09 Yes [id number] 50mg Take 1 [facility] (MYRBETRIQ) 0-13 tablet by ity of 50 mg 00:00: mouth in [place] tablet 00 the Medical morning. Branch semaglutide 2021-09 Yes [id number] Inject [facility] (OZEMPIC) 0-13 0.25 mg ity of 0.25 mg or 00:00: under the [place] 0.5 mg(2 00 skin Medical mg/1.5 mL) weekly. Branch PnIj topiramate 2021-09 Yes [id number] 75mg Take 3 [facility] 25 mg 0-13 tablets by ity of tablet 00:00: mouth in [place] 00 the Medical morning Branch and 3 tablets in the evening. busPIRone 2021-09 Yes [id number] 20mg Take 2 [facility] [place] 10 mg 0-13 tablets by ity of tablet 00:00: mouth in [place] 00 the Medical morning Branch and 2 tablets in the evening. losartan 50 2021-09 Yes [id number] 50mg Take 1 [facility] mg tablet 0-13 tablet by ity o f 00:00: mouth in [place] 00 the Medical morning Branch and 1 tablet in the evening. mirabegron 2021-09 Yes [id number] 50mg Take 1 [facility] (MYRBETRIQ) 0-13 tablet by ity of 50 mg 00:00: mouth in [place] tablet 00 the Medical morning. Branch semaglutide 2021-09 Yes [id number] Inject [facility] (OZEMPIC) 0-13 0.25 mg ity of 0.25 mg or 00:00: under the [place] 0.5 mg(2 skin Medical mg/1.5 mL) weekly. Branch PnIj topiramate 2021-09 Yes [id number] 75mg Take 3 [facility] 25 mg 0-13 tablets by ity of tablet 00:00: mouth in [place] 00 the Medical morning Branch and 3 tablets in the evening. busPIRone 2021-09 Yes [id number] 20mg Take 2 [facility] [place] 10 mg 0-13 tablets by ity of tablet 00:00: mouth in [place] 00 the Medical morning Branch and 2 tablets in the evening. losartan 50 2021-09 Yes [id number] 50mg Take 1 [facility] mg tablet 0-13 tablet by ity o f 00:00: mouth in [place] 00 the Medical morning Branch and 1 tablet in the evening. mirabegron 2021-09 Yes [id number] 50mg Take 1 [facility] (MYRBETRIQ) 0-13 tablet by ity of 50 mg 00:00: mouth in [place] tablet 00 the Medical morning. Branch semaglutide 2021-09 Yes [id number] Inject [facility] (OZEMPIC) 0-13 0.25 mg ity of 0.25 mg or 00:00: under the [place] 0.5 mg(2 00 skin Medical mg/1.5 mL) weekly. Branch PnIj topiramate 2021-09 Yes [id number] 75mg Take 3 [facility] 25 mg 0-13 tablets by ity of tablet 00:00: mouth in [place] 00 the Medical morning Branch and 3 tablets in the evening. busPIRone 2021-09 Yes [id number] 20mg Take 2 [facility] [place] 10 mg 0-13 tablets by ity of tablet 00:00: mouth in [place] 00 the Medical morning Branch and 2 tablets in the evening. losartan 50 2021-09 Yes [id number] 50mg Take 1 [facility] mg tablet 0-13 tablet by ity o f 00:00: mouth in [place] 00 the Medical morning Branch and 1 tablet in the evening. mirabegron 2021-09 Yes [id number] 50mg Take 1 [facility] (MYRBETRIQ) 0-13 tablet by ity of 50 mg 00:00: mouth in [place] tablet 00 the Medical morning. Branch semaglutide 2021-09 Yes [id number] Inject [facility] (OZEMPIC) 0-13 0.25 mg ity of 0.25 mg or 00:00: under the [place] 0.5 mg(2 00 skin Medical mg/1.5 mL) weekly. Branch PnIj topiramate 2021-09 Yes [id number] 75mg Take 3 [facility] 25 mg 0-13 tablets by ity of tablet 00:00: mouth in [place] 00 the Medical morning Branch and 3 tablets in the evening. busPIRone 2021-09 Yes [id number] 20mg Take 2 [facility] [place] 10 mg 0-13 tablets by ity of tablet 00:00: mouth in [place] 00 the Medical morning Branch and 2 tablets in the evening. losartan 50 2021-09 Yes [id number] 50mg Take 1 [facility] mg tablet 0-13 tablet by ity o f 00:00: mouth in [place] 00 the Medical morning Branch and 1 tablet in the evening. mirabegron 2021-09 Yes [id number] 50mg Take 1 [facility] (MYRBETRIQ) 0-13 tablet by ity of 50 mg 00:00: mouth in [place] tablet 00 the Medical morning. Branch semaglutide 2021-09 Yes [id number] Inject [facility] (OZEMPIC) 0-13 0.25 mg ity of 0.25 mg or 00:00: under the [place] 0.5 mg(2 00 skin Medical mg/1.5 mL) weekly. Branch PnIj topiramate 2021-09 Yes [id number] 75mg Take 3 [facility] 25 mg 0-13 tablets by ity of tablet 00:00: mouth in [place] 00 the Medical morning Branch and 3 tablets in the evening. busPIRone 2021-09 Yes [id number] 20mg Take 2 [facility] [place] 10 mg 0-13 tablets by ity of tablet 00:00: mouth in [place] 00 the Medical morning Branch and 2 tablets in the evening. losartan 50 2021-09 Yes [id number] 50mg Take 1 [facility] mg tablet 0-13 tablet by ity o f 00:00: mouth in [place] 00 the Medical morning Branch and 1 tablet in the evening. mirabegron 2021-09 Yes [id number] 50mg Take 1 [facility] (MYRBETRIQ) 0-13 tablet by ity of 50 mg 00:00: mouth in [place] tablet 00 the Medical morning. Branch semaglutide 2021-09 Yes [id number] Inject [facility] (OZEMPIC) 0-13 0.25 mg ity of 0.25 mg or 00:00: under the [place] 0.5 mg(2 00 skin Medical mg/1.5 mL) weekly. Branch PnIj topiramate 2021-09 Yes [id number] 75mg Take 3 [facility] 25 mg 0-13 tablets by ity of tablet 00:00: mouth in [place] 00 the Medical morning Branch and 3 tablets in the evening. busPIRone 2021-09 Yes [id number] 20mg Take 2 [facility] [place] 10 mg 0-13 tablets by ity of tablet 00:00: mouth in [place] 00 the Medical morning Branch and 2 tablets in the evening. losartan 50 2021-09 Yes [id number] 50mg Take 1 [facility] mg tablet 0-13 tablet by ity o f 00:00: mouth in [place] 00 the Medical morning Branch and 1 tablet in the evening. mirabegron 2021-09 Yes [id number] 50mg Take 1 [facility] (MYRBETRIQ) 0-13 tablet by ity of 50 mg 00:00: mouth in [place] tablet 00 the Medical morning. Branch semaglutide 2021-09 Yes [id number] Inject [facility] (OZEMPIC) 0-13 0.25 mg ity of 0.25 mg or 00:00: under the [place] 0.5 mg(2 00 skin Medical mg/1.5 mL) weekly. Branch PnIj topiramate 2021-09 Yes [id number] 75mg Take 3 [facility] 25 mg 0-13 tablets by ity of tablet 00:00: mouth in [place] 00 the Medical morning Branch and 3 tablets in the evening. busPIRone 2021-09 Yes [id number] 20mg Take 2 [facility] [place] 10 mg 0-13 tablets by ity of tablet 00:00: mouth in [place] 00 the Medical morning Branch and 2 tablets in the evening. losartan 50 2021-09 Yes [id number] 50mg Take 1 [facility] mg tablet 0-13 tablet by ity o f 00:00: mouth in [place] 00 the Medical morning Branch and 1 tablet in the evening. mirabegron 2021-09 Yes [id number] 50mg Take 1 [facility] (MYRBETRIQ) 0-13 tablet by ity of 50 mg 00:00: mouth in [place] tablet 00 the Medical morning. Branch semaglutide 2021-09 Yes [id number] Inject [facility] (OZEMPIC) 0-13 0.25 mg ity of 0.25 mg or 00:00: under the [place] 0.5 mg(2 00 skin Medical mg/1.5 mL) weekly. Branch PnIj topiramate 2021-09 Yes [id number] 75mg Take 3 [facility] 25 mg 0-13 tablets by ity of tablet 00:00: mouth in [place] 00 the Medical morning Branch and 3 tablets in the evening. busPIRone 2021-09 Yes [id number] 20mg Take 2 [facility] [place] 10 mg 0-13 tablets by ity of tablet 00:00: mouth in [place] 00 the Medical morning Branch and 2 tablets in the evening. losartan 50 2021-09 Yes [id number] 50mg Take 1 [facility] mg tablet 0-13 tablet by ity o f 00:00: mouth in [place] 00 the Medical morning Branch and 1 tablet in the evening. mirabegron 2021-09 Yes [id number] 50mg Take 1 [facility] (MYRBETRIQ) 0-13 tablet by ity of 50 mg 00:00: mouth in [place] tablet 00 the Medical morning. Branch semaglutide 2021-09 Yes [id number] Inject [facility] (OZEMPIC) 0-13 0.25 mg ity of 0.25 mg or 00:00: under the [place] 0.5 mg(2 00 skin Medical mg/1.5 mL) weekly. Branch PnIj topiramate 2021-09 Yes [id number] 75mg Take 3 [facility] 25 mg 0-13 tablets by ity of tablet 00:00: mouth in [place] 00 the Medical morning Branch and 3 tablets in the evening. busPIRone 2021-09 Yes [id number] 20mg Take 2 [facility] [place] 10 mg 0-13 tablets by ity of tablet 00:00: mouth in [place] 00 the Medical morning Branch and 2 tablets in the evening. losartan 50 2021-09 Yes [id number] 50mg Take 1 [facility] mg tablet 0-13 tablet by ity o f 00:00: mouth in [place] 00 the Medical morning Branch and 1 tablet in the evening. mirabegron 2021-09 Yes [id number] 50mg Take 1 [facility] (MYRBETRIQ) 0-13 tablet by ity of 50 mg 00:00: mouth in [place] tablet 00 the Medical morning. Branch semaglutide 2021-09 Yes [id number] Inject [facility] (OZEMPIC) 0-13 0.25 mg ity of 0.25 mg or 00:00: under the [place] 0.5 mg(2 00 skin Medical mg/1.5 mL) weekly. Branch PnIj topiramate 2021-09 Yes [id number] 75mg Take 3 [facility] 25 mg 0-13 tablets by ity of tablet 00:00: mouth in [place] 00 the Medical morning Branch and 3 tablets in the evening. busPIRone 2021-09 Yes [id number] 20mg Take 2 [facility] [place] 10 mg 0-13 tablets by ity of tablet 00:00: mouth in [place] 00 the Medical morning Branch and 2 tablets in the evening. losartan 50 2021-09 Yes [id number] 50mg Take 1 [facility] mg tablet 0-13 tablet by ity o f 00:00: mouth in [place] 00 the Medical morning Branch and 1 tablet in the evening. mirabegron 2021-09 Yes [id number] 50mg Take 1 [facility] (MYRBETRIQ) 0-13 tablet by ity of 50 mg 00:00: mouth in [place] tablet 00 the Medical morning. Branch semaglutide 2021-09 Yes [id number] Inject [facility] (OZEMPIC) 0-13 0.25 mg ity of 0.25 mg or 00:00: under the [place] 0.5 mg(2 00 skin Medical mg/1.5 mL) weekly. Branch PnIj topiramate 2021-09 Yes [id number] 75mg Take 3 [facility] 25 mg 0-13 tablets by ity of tablet 00:00: mouth in [place] 00 the Medical morning Branch and 3 tablets in the evening. busPIRone 2021-09 Yes [id number] 20mg Take 2 [facility] [place] 10 mg 0-13 tablets by ity of tablet 00:00: mouth in [place] 00 the Medical morning Branch and 2 tablets in the evening. losartan 50 2021-09 Yes [id number] 50mg Take 1 [facility] mg tablet 0-13 tablet by ity o f 00:00: mouth in [place] 00 the Medical morning Branch and 1 tablet in the evening. mirabegron 2021-09 Yes [id number] 50mg Take 1 [facility] (MYRBETRIQ) 0-13 tablet by ity of 50 mg 00:00: mouth in [place] tablet 00 the Medical morning. Branch semaglutide 2021-09 Yes [id number] Inject [facility] (OZEMPIC) 0-13 0.25 mg ity of 0.25 mg or 00:00: under the [place] 0.5 mg(2 00 skin Medical mg/1.5 mL) weekly. Branch PnIj topiramate 2021-09 Yes [id number] 75mg Take 3 [facility] 25 mg 0-13 tablets by ity of tablet 00:00: mouth in [place] 00 the Medical morning Branch and 3 tablets in the evening. diltiazem 2021-09- No [id number] 120mg Take 1 [facility] 120 mg 24 07-27 capsule by ity of hr capsule 00:00: 00:00 mouth in [place] 00 :00 the Medical morning Branch and 1 capsule in the evening. levothyroxi 2021-09- No [id number] 50ug Take 1 [facility] ne 50 mcg 0-07-27 tablet by ity of tablet 00:00: 00:00 mouth [place] 00 :00 every Medical morning. Branch metformin 2021-09- No [id number] 500mg Take 1 [facility] ER 500 mg 0-07-27 tablet by ity of 24 hr 00:00: 00:00 mouth [place] tablet 00 :00 daily with Medical breakfast. Branch STOP REGULAR METFORMIN. pantoprazol 2021-09- No [id number] 40mg Take 1 [facility] e 40 mg EC 07-27 tablet by ity of tablet 00:00: 00:00 mouth in [place] 00 :00 the Medical morning. Branch pregabalin 2021-09- No [id number] 150mg Take 1 [facility] 150 mg 07-27 capsule by ity of capsule 00:00: 00:00 mouth in [place] 00 :00 the Medical morning Branch and 1 capsule at noon and 1 capsule in the evening. rosuvastati 2021-09- No [id number] 10mg Take 1 [facility] n 10 mg 07-27 tablet by ity of tablet 00:00: 00:00 mouth at [place] 00 :00 bedtime. Medical Branch SUMAtriptan 2021-09- No [id number] 50mg Take 1 [facility] 50 mg 07-27 tablet by ity of tablet 00:00: 00:00 mouth as [place] 00 :00 needed for Medical Migraine. Branch diltiazem 2021-09- No [id number] 120mg Take 1 [facility] 120 mg 24 07-27 capsule by ity of hr capsule 00:00: 00:00 mouth in [facility] 00 :00 the Medical morning Branch and 1 capsule in the evening. levothyroxi 2021-09- No [id number] 50ug Take 1 [facility] ne 50 mcg 07-27 tablet by ity of tablet 00:00: 00:00 mouth [place] 00 :00 every Medical morning. Branch metformin 2021-09- No [id number] 500mg Take 1 [facility] ER 500 mg 07-27 tablet by ity of 24 hr 00:00: 00:00 mouth [place] tablet 00 :00 daily with Medical breakfast. Branch STOP REGULAR METFORMIN. pantoprazol 2021-09- No [id number] 40mg Take 1 [facility] e 40 mg EC 07-27 tablet by ity of tablet 00:00: 00:00 mouth in [place] 00 :00 the Medical morning. Branch pregabalin 2021-09- No [id number] 150mg Take 1 [facility] 150 mg 07-27 capsule by ity of capsule 00:00: 00:00 mouth in [place] 00 :00 the Medical morning Branch and 1 capsule at noon and 1 capsule in the evening. rosuvastati 2021-09- No [id number] 10mg Take 1 [facility] n 10 mg 0-13 - tablet by ity of tablet 00:00: 00:00 mouth at [place] 00 :00 bedtime. Medical Branch SUMAtriptan 2021-09- No [id number] 50mg Take 1 [facility] 50 mg 0-13 - tablet by ity of tablet 00:00: 00:00 mouth as [place] 00 :00 needed for Medical Migraine. Branch SUMAtriptan Yes [id number] 50mg Take 1 [facility] 50 mg 9-30 tablet by ity of tablet 00:00: mouth as [place] 00 needed for Medical Migraine. Branch SUMAtriptan Yes [id number] 50mg Take 1 [facility] 50 mg 9-30 tablet by ity of tablet 00:00: mouth as [place] 00 needed for Medical Migraine. Branch SUMAtriptan Yes [id number] 50mg Take 1 [facility] 50 mg 9-30 tablet by ity of tablet 00:00: mouth as [place] 00 needed for Medical Migraine. Branch SUMAtriptan Yes [id number] 50mg Take 1 [facility] 50 mg 9-30 tablet by ity of tablet 00:00: mouth as [place] 00 needed for Medical Migraine. Branch SUMAtriptan Yes [id number] 50mg Take 1 [facility] 50 mg 9-30 tablet by ity of tablet 00:00: mouth as [place] 00 needed for Medical Migraine. Branch SUMAtriptan 2021- No [id number] 50mg Take 1 [facility] 50 mg 9-30 10-13 tablet by ity of tablet 00:00: 00:00 mouth as [place] 00 :00 needed for Medical Migraine. Branch FOLIC ACID Yes Take by [facility] ers ORAL 06-17 mouth ity of 10:41: daily. [place] 15 Medical Branch MULTIVIT Yes Take by [facility] s &MINERALS/F 06-17 mouth. ity of ERROUS FUM 10:41: [place] (MULTI 15 Medical VITAMIN Branch ORAL) METHYLCELLU Yes [facility] s LOSE (FIBER 06-17 ity of THERAPY 10:41: [facility]) 15 Medical Branch DOCUSATE Yes [facility] SODIUM - mouth. ity of (COLACE 10:41: [place] ORAL) 15 Medical Branch vitamin C Yes 1000mg Take 1,000 [facility] with derrell 9-22 mg by ity of hips 1,000 10:41: mouth [place] mg tablet 15 daily. Medical Branch cholecalcif Yes 1000U Take 1,000 [facility] edmar, 9-22 Units by ity of vitamin D3, 10:41: mouth [place] 25 mcg 15 daily. Medical (1,000 Branch unit) tablet CRANBERRY Yes Take by [facility] rs FRUIT 06-17 mouth ity of EXTRACT 10:41: daily. [place] (CRANBERRY 15 Medical ORAL) Branch CALCIUM Yes Take by [facility] ORAL 06-17 mouth ity of 10:41: daily. [place] 15 Medical Branch DOCOSAHEXAN Yes 1000mg Take 1,000 [facility] OIC 9-22 mg by ity of ACID/EPA 10:41: mouth [place] (FISH OIL 15 daily. Medical ORAL) Branch BIOTIN ORAL Yes Take by Uni vers 06-17 mouth. ity of 10:41: [place] [address] Medical Branch FOLIC ACID Yes Take by [facility] ers ORAL 06-17 mouth ity of 10:41: daily. [place] [address] Medical Branch MULTIVIT Yes [facility] &MINERALS/F - mouth. ity of ERROUS FUM 10:41: [place] (MULTI 15 Medical VITAMIN Branch ORAL) METHYLCELLU Yes [facility] (FIBER - ity of THERAPY 10:41: [facility]) 15 Medical Branch DOCUSATE Yes Take by [facility] SODIUM - mouth. ity of (COLACE 10:41: [place] ORAL) 15 Medical Branch vitamin C Yes [...] - mouth ity of EXTRACT 10:41: daily. [place] (CRANBERRY 15 Medical ORAL) Branch CALCIUM Yes Take by [facility] ORAL - mouth ity of 10:41: daily. [place] 15 Medical Branch DOCOSAHEXAN Yes 1000mg Take 1,000 [facility] OIC 9-22 mg by ity of ACID/EPA 10:41: mouth [place] (FISH OIL 15 daily. Medical ORAL) Branch BIOTIN ORAL Yes Take by Uni vers 06-17 mouth. ity of 10:41: [place] [address] Medical Branch FOLIC ACID Yes Take by Univ ers ORAL 06-17 mouth ity of 10:41: daily. [place] [address] Medical Branch MULTIVIT Yes Take by Univer s &MINERALS/F 06-17 mouth. ity of ERROUS FUM 10:41: [place] (MULTI 15 Medical VITAMIN Branch ORAL) METHYLCELLU Yes Univer s LOSE (FIBER 06-17 ity of THERAPY 10:41: [place] MISC) Medical Branch DOCUSATE Yes Take by Univer s SODIUM 06-17 mouth. ity of (COLACE 10:41: [place] ORAL) 15 Medical Branch vitamin C Yes 1000mg Take 1,000 [facility] with derrell 9-22 mg by ity of hips 1,000 10:41: mouth [place] mg tablet 15 daily. Medical Branch cholecalcif Yes 1000U Take 1,000 [facility] edmar, 9-22 Units by ity of vitamin D3, 10:41: mouth [place] 25 mcg 15 daily. Medical (1,000 Branch unit) tablet CRANBERRY Yes [facility] FRUIT - mouth ity of EXTRACT 10:41: daily. [place] (CRAN[place]ERRY 15 Medical ORAL) Branch CALCIUM Yes Take by [facility] ORAL - mouth ity of 10:41: daily. [place] 15 Medical Branch DOCOSAHEXAN Yes 1000mg Take 1,000 [facility] OIC 9-22 mg by ity of ACID/EPA 10:41: mouth [place] (FISH OIL 15 daily. Medical ORAL) Branch BIOTIN ORAL Yes Take by Uni vers - mouth. ity of 10:41: [place] [address] Medical Branch FOLIC ACID Yes Take by Univ ers ORAL -22 mouth ity of 10:41: daily. [place] 15 Medical Branch MULTIVIT Yes Take by Univer s &MINERALS/F -22 mouth. ity of ERROUS FUM 10:41: [place] (MULTI 15 Medical VITAMIN Branch ORAL) METHYLCELLU Yes Univer s LOSE (FIBER 9-22 ity of THERAPY 10:41: [facility]) 15 Medical Branch DOCUSATE Yes Take [...] Branch unit) tablet CRANBERRY Yes [facility] FRUIT - mouth ity of EXTRACT 10:41: daily. [place] (CRAN[place]ERRY 15 Medical ORAL) Branch CALCIUM Yes Take by [facility] ORAL - mouth ity of 10:41: daily. [place] 15 Medical Branch DOCOSAHEXAN Yes 1000mg Take 1,000 [facility] OIC 9-22 mg by ity of ACID/EPA 10:41: mouth [place] (FISH OIL 15 daily. Medical ORAL) Branch BIOTIN ORAL Yes Take by Uni vers - mouth. ity of 10:41: [place] [address] Medical Branch FOLIC ACID Yes Take by Univ ers ORAL 9-22 mouth ity of 10:41: daily. [place] 15 Medical Branch MULTIVIT Yes Take by Univer s &MINERALS/F 9-22 mouth. ity of ERROUS FUM 10:41: [place] (MULTI 15 Medical VITAMIN Branch ORAL) METHYLCELLU 0 Yes Univer s LOSE (FIBER 9-22 ity of THERAPY 10:41: [facility]) Medical Branch DOCUSATE Yes Take [facility] SODIUM 9-22 mouth. ity of (COLACE [...] - mouth ity of EXTRACT 10:41: daily. [place] ([place] 15 Medical ORAL) Branch CALCIUM Yes Take by [facility] ORAL 06-17 mouth ity of 10:41: daily. [place] 15 Medical Branch DOCOSAHEXAN Yes 1000mg Take 1,000 [facility] OIC 9-22 mg by ity of ACID/EPA 10:41: mouth [place] (FISH OIL 15 daily. Medical ORAL) Branch BIOTIN ORAL Yes Take by Uni vers 06-17 mouth. ity of 10:41: [place] 15 Medical Branch FOLIC ACID Yes Take by Univ ers ORAL 06-17 mouth ity of 10:41: daily. [place] [address] Medical Branch MULTIVIT Yes Take by Univer s &MINERALS/F 06-17 mouth. ity of ERROUS FUM 10:41: [place] (MULTI 15 Medical VITAMIN Branch ORAL) METHYLCELLU Yes Univer s LOSE (FIBER 06-17 ity of THERAPY 10:41: [facility]) Medical Branch DOCUSATE Yes Take by [...] - mouth ity of EXTRACT 10:41: daily. [place] ([place] 15 Medical ORAL) Branch CALCIUM Yes Take by [facility] ORAL - mouth ity of 10:41: daily. [place] 15 Medical Branch DOCOSAHEXAN Yes 1000mg Take 1,000 [facility] OIC 9-22 mg by ity of ACID/EPA 10:41: mouth [place] (FISH OIL 15 daily. Medical ORAL) Branch BIOTIN ORAL Yes Take by Uni vers - mouth. ity of 10:41: [place] 15 Medical Branch FOLIC ACID Yes Take by Univ ers ORAL - mouth ity of 10:41: daily. [place] 15 Medical Branch MULTIVIT Yes Take by Univer s &MINERALS/F - mouth. ity of ERROUS FUM 10:41: [place] (MULTI 15 Medical VITAMIN Branch ORAL) [facility]YLCELLU Yes [facility] ([facility]IB[facility] - ity of THERAPY [...] 06-17 mouth ity of EXTRACT 10:41: daily. [place] ([place] 15 Medical ORAL) Branch CALCIUM Yes Take by Univers ORAL - mouth ity of 10:41: daily. [place] Medical Branch DOCOSAHEXAN Yes 1000mg Take 1,000 [facility] OIC 9-22 mg by ity of ACID/EPA 10:41: mouth [place] (FISH OIL 15 daily. Medical ORAL) Branch BIOTIN ORAL Yes Take by Uni vers - mouth. ity of 10:41: [place] [address] Medical Branch FOLIC ACID Yes Take by Univ ers ORAL - mouth ity of 10:41: daily. [place] [address] Medical Branch MULTIVIT Yes Take by Univer s &MINERALS/F - mouth. ity of ERROUS FUM 10:41: [place] (MULTI 15 Medical VITAMIN Branch ORAL) METHYLCELLU Yes Univer s LOSE (FIBER 9-22 ity of THERAPY 10:41: [facility]) 15 Medical Branch DOCUSATE Yes Take by Univer s SODIUM -22 mouth. ity of (COLACE 10:41: [place] ORAL) 15 Medical Branch vitamin C Yes 1000mg Take 1,000 [facility] with derrell 9-22 mg by ity of hips 1,000 10:41: mouth [place] mg tablet 15 daily. Medical Branch cholecalcif Yes 1000U Take 1,000 [facility] edmar, 9-22 Units by ity of vitamin D3, 10:41: mouth [place] 25 mcg 15 daily. Medical (1,000 Branch unit) tablet CRANBERRY Yes Take by [facility] rs FRUIT 06-17 mouth ity of EXTRACT 10:41: daily. [place] (CRANBERRY 15 Medical ORAL) Branch CALCIUM Yes Take by [facility] ORAL 06-17 mouth ity of 10:41: daily. [place] [address] Medical Branch DOCOSAHEXAN Yes 1000mg Take 1,000 [facility] OIC 9-22 mg by ity of ACID/EPA 10:41: mouth [place] (FISH OIL 15 daily. Medical ORAL) Branch BIOTIN ORAL Yes Take by Uni vers - mouth. ity of 10:41: [place] [address] Medical Branch FOLIC ACID Yes Take by Univ ers ORAL - mouth ity of 10:41: daily. [place] [address] Medical Branch MULTIVIT Yes Take by [facility] &MINERALS/F - mouth. ity of ERROUS FUM 10:41: [place] (MULTI 15 Medical VITAMIN Branch ORAL) METHYLCELLU Yes Univer s LOSE (FIBER 9-22 ity of THERAPY 10:41: [facility]) 15 Medical Branch DOCUSATE Yes Take by [facility] SODIUM 9-22 mouth. ity of (COLACE 10:41: [place] ORAL) 15 Medical Branch vitamin C Yes [...] - mouth ity of EXTRACT 10:41: daily. [place] (CRANBERRY 15 Medical ORAL) Branch CALCIUM Yes Take by [facility] ORAL - mouth ity of 10:41: daily. [place] [address] Medical Branch DOCOSAHEXAN Yes 1000mg Take 1,000 [facility] OIC 9-22 mg by ity of ACID/EPA 10:41: mouth [place] (FISH OIL 15 daily. Medical ORAL) Branch BIOTIN ORAL Yes Take by Uni vers 06-17 mouth. ity of 10:41: [place] [address] Medical Branch FOLIC ACID Yes Take by Univ ers ORAL 06-17 mouth ity of 10:41: daily. [place] [address] Medical Branch MULTIVIT Yes Take by Univer s &MINERALS/F 06-17 mouth. ity of ERROUS FUM 10:41: [place] (MULTI 15 Medical VITAMIN Branch ORAL) METHYLCELLU Yes Univer s LOSE (FIBER 06-17 ity of THERAPY 10:41: [place] MISC) Medical Branch DOCUSATE Yes Take by [...] - mouth ity of EXTRACT 10:41: daily. [place] (CRANBERRY 15 Medical ORAL) Branch CALCIUM Yes Take by [facility] ORAL - mouth ity of 10:41: daily. [place] [address] Medical Branch DOCOSAHEXAN Yes 1000mg Take 1,000 [facility] OIC 9-22 mg by ity of ACID/EPA 10:41: mouth [place] (FISH OIL 15 daily. Medical ORAL) Branch BIOTIN ORAL Yes Take by Uni vers 9-22 mouth. ity of 10:41: [place] 15 Medical Branch FOLIC ACID Yes Take by Univ ers ORAL 9- mouth ity of 10:41: daily. [place] 15 Medical Branch MULTIVIT Yes Take by Univer s &MINERALS/F - mouth. ity of ERROUS FUM 10:41: [place] (MULTI 15 Medical VITAMIN Branch ORAL) METHYLCELLU Yes Univer s LOSE (FIBER 9-22 ity of THERAPY 10:41: [facility]) 15 Medical Branch DOCUSATE Yes Take [...] - mouth ity of EXTRACT 10:41: daily. [place] ([place]Y 15 Medical ORAL) Branch CALCIUM Yes Take by Univers ORAL - mouth ity of 10:41: daily. [place] 15 Medical Branch DOCOSAHEXAN Yes 1000mg Take 1,000 [facility] OIC 9-22 mg by ity of ACID/EPA 10:41: mouth [place] (FISH OIL 15 daily. Medical ORAL) Branch BIOTIN ORAL Yes Take by Uni vers -22 mouth. ity of 10:41: [place] 15 Medical Branch FOLIC ACID Yes Take by Univ ers ORAL 9-22 mouth ity of 10:41: daily. [place] 15 Medical Branch MULTIVIT Yes Take by Univer s &MINERALS/F -22 mouth. ity of ERROUS FUM 10:41: [place] (MULTI 15 Medical VITAMIN Branch ORAL) METHYLCELLU Yes Univer s LOSE (FIBER 9-22 ity of THERAPY 10:41: [facility]) 15 Medical Branch DOCUSATE Yes Take [...] - mouth ity of EXTRACT 10:41: daily. [place] ([place] 15 Medical ORAL) Branch CALCIUM Yes Take by Univers ORAL - mouth ity of 10:41: daily. [place] 15 Medical Branch DOCOSAHEXAN Yes 1000mg Take 1,000 [facility] OIC 9-22 mg by ity of ACID/EPA 10:41: mouth [place] (FISH OIL 15 daily. Medical ORAL) Branch BIOTIN ORAL Yes Take by Uni vers 06-17 mouth. ity of 10:41: [place] [address] Medical Branch FOLIC ACID Yes Take by Univ ers ORAL - mouth ity of 10:41: daily. [place] 15 Medical Branch MULTIVIT Yes Take by Univer s &MINERALS/F - mouth. ity of ERROUS FUM 10:41: [place] (MULTI 15 Medical VITAMIN Branch ORAL) METHYLCELLU Yes Univer s LOSE (FIBER - ity of THERAPY 10:41: [facility]) 15 Medical Branch DOCUSATE Yes Take [...] 9-22 mouth ity of EXTRACT 10:41: daily. [place] ([place]Y 15 Medical ORAL) Branch CALCIUM Yes Take by Univers ORAL 9-22 mouth ity of 10:41: daily. [place] 15 Medical Branch DOCOSAHEXAN Yes 1000mg Take 1,000 [facility] OIC 9-22 mg by ity of ACID/EPA 10:41: mouth [place] (FISH OIL 15 daily. Medical ORAL) Branch BIOTIN ORAL Yes Take by Uni vers - mouth. ity of 10:41: [place] [address] Medical Branch FOLIC ACID Yes Take by Univ ers ORAL - mouth ity of 10:41: daily. [place] [address] Medical Branch MULTIVIT Yes Take by Univer s &MINERALS/F 06-17 mouth. ity of ERROUS FUM 10:41: [place] (MULTI 15 Medical VITAMIN Branch ORAL) METHYLCELLU Yes Univer s LOSE (FIBER 06-17 ity of THERAPY 10:41: [place] MISC) Medical Branch DOCUSATE Yes Take by [...] 06-17 mouth ity of EXTRACT 10:41: daily. [place] ([place]Y 15 Medical ORAL) Branch CALCIUM Yes Take by Univers ORAL -22 mouth ity of 10:41: daily. [place] Medical Branch DOCOSAHEXAN Yes 1000mg Take 1,000 [facility] OIC 9-22 mg by ity of ACID/EPA 10:41: mouth [place] (FISH OIL 15 daily. Medical ORAL) Branch BIOTIN ORAL Yes Take by Uni vers -22 mouth. ity of 10:41: [place] [address] Medical Branch FOLIC ACID Yes Take by Univ ers ORAL - mouth ity of 10:41: daily. [place] [address] Medical Branch MULTIVIT Yes Take by Univer s &MINERALS/F - mouth. ity of ERROUS FUM 10:41: [place] (MULTI 15 Medical VITAMIN Branch ORAL) METHYLCELLU 0 Yes Univer s LOSE (FIBER - ity of THERAPY 10:41: [facility]) 15 Medical Branch vitamin C Yes [...] - mouth ity of EXTRACT 10:41: daily. [place] ([place]Y 15 Medical ORAL) Branch CALCIUM Yes Take by Univers ORAL - mouth ity of 10:41: daily. [place] [address] Medical Branch DOCOSAHEXAN Yes 1000mg Take 1,000 [facility] OIC 9-22 mg by ity of ACID/EPA 10:41: mouth [place] (FISH OIL 15 daily. Medical ORAL) Branch BIOTIN ORAL Yes Take by Uni vers - mouth. ity of 10:41: [place] [address] Medical Branch FOLIC ACID Yes Take by Univ ers ORAL - mouth ity of 10:41: daily. [place] [address] Medical Branch MULTIVIT Yes Take by Univer s &MINERALS/F - mouth. ity of ERROUS FUM 10:41: [place] (MULTI 15 Medical VITAMIN Branch ORAL) METHYLCELLU 0 Yes Univer s LOSE (FIBER 9-22 ity of THERAPY 10:41: [facility]) Medical Branch vitamin C Yes 1000mg [...] - mouth ity of EXTRACT 10:41: daily. [place] ([place]AN[place]ERRY 15 Medical ORAL) Branch CALCIUM Yes Take by Univers ORAL 9- mouth ity of 10:41: daily. [place] [address] Medical Branch DOCOSAHEXAN Yes 1000mg Take 1,000 [facility] OIC 9-22 mg by ity of ACID/EPA 10:41: mouth [place] (FISH OIL 15 daily. Medical ORAL) Branch BIOTIN ORAL Yes Take by Uni vers 06-17 mouth. ity of 10:41: [place] [address] Medical Branch FOLIC ACID Yes Take by Univ ers ORAL - mouth ity of 10:41: daily. [place] [address] Medical Branch MULTIVIT Yes Take by Univer s &MINERALS/F 06-17 mouth. ity of ERROUS FUM 10:41: [place] (MULTI 15 Medical VITAMIN Branch ORAL) [facility]LLU [facility] ity of THERAPY 10:41: [facility]) Medical Branch vitamin C Yes 1000mg [...] - mouth ity of EXTRACT 10:41: daily. [place] (CRANBERRY 15 Medical ORAL) Branch CALCIUM Yes Take by Univers ORAL 9- mouth ity of 10:41: daily. [place] [address] Medical Branch DOCOSAHEXAN Yes 1000mg Take 1,000 [facility] OIC 9-22 mg by ity of ACID/EPA 10:41: mouth [place] (FISH OIL 15 daily. Medical ORAL) Branch BIOTIN ORAL Yes Take by Uni vers 06-17 mouth. ity of 10:41: [place] [address] Medical Branch FOLIC ACID Yes Take by Univ ers ORAL - mouth ity of 10:41: daily. [place] [address] Medical Branch MULTIVIT Yes Take by Univer s &MINERALS/F 06-17 mouth. ity of ERROUS FUM 10:41: [place] (MULTI 15 Medical VITAMIN Branch ORAL) METHYLCELLU 2021-0 Yes Univer s LOSE (FIBER 9- ity of THERAPY 10:41: [facility]) 15 Medical Branch vitamin C 0 [...] - mouth ity of EXTRACT 10:41: daily. [place] (CRANBERRY 15 Medical ORAL) Branch CALCIUM Yes Take by Univers ORAL - mouth ity of 10:41: daily. [place] 15 Medical Branch DOCOSAHEXAN Yes 1000mg Take 1,000 [facility] OIC 9-22 mg by ity of ACID/EPA 10:41: mouth [place] (FISH OIL 15 daily. Medical ORAL) Branch BIOTIN ORAL Yes Take by Uni vers - mouth. ity of 10:41: [place] [address] Medical Branch FOLIC ACID Yes Take by Univ ers ORAL - mouth ity of 10:41: daily. [place] [address] Medical Branch MULTIVIT Yes Take by Univer s &MINERALS/F - mouth. ity of ERROUS FUM 10:41: [place] (MULTI 15 Medical VITAMIN Branch ORAL) METHYLCELLU 2021-0 Yes Univer s LOSE (FIBER 9-22 ity of THERAPY 10:41: [facility]) Medical Branch vitamin C 0 Yes [...] -22 mouth ity of EXTRACT 10:41: daily. [place] (CRANBERRY 15 Medical ORAL) Branch CALCIUM 2022-0 Yes Take by Univers ORAL 9-22 mouth ity of 10:41: daily. [place] 15 Medical Branch DOCOSAHEXAN Yes 1000mg Take 1,000 [facility] OIC 9-22 mg by ity of ACID/EPA 10:41: mouth [place] (FISH OIL 15 daily. Medical ORAL) Branch BIOTIN ORAL Yes Take by Uni vers - mouth. ity of 10:41: [place] 15 Medical Branch FOLIC ACID 0 Yes Take by Univ ers ORAL - mouth ity of 10:41: daily. [place] [address] Medical Branch MULTIVIT Yes Take by Univer s &MINERALS/F - mouth. ity of ERROUS FUM 10:41: [place] (MULTI 15 Medical VITAMIN Branch ORAL) METHYLCELLU Yes Univer s LOSE (FIBER 06-17 ity of THERAPY 10:41: [facility]) Medical Branch vitamin C Yes 1000mg [...] - mouth ity of EXTRACT 10:41: daily. [place] (CRANBERRY 15 Medical ORAL) Branch CALCIUM Yes Take by Univers ORAL 9- mouth ity of 10:41: daily. [place] [address] Medical Branch DOCOSAHEXAN Yes 1000mg Take 1,000 [facility] OIC 9-22 mg by ity of ACID/EPA 10:41: mouth [place] (FISH OIL 15 daily. Medical ORAL) Branch BIOTIN ORAL Yes Take by Uni vers 9-22 mouth. ity of 10:41: [place] [address] [facility] Branch FOLIC ACID 0 Yes Take by Univ ers ORAL 9- mouth ity of 10:41: daily. [place] [address] Medical Branch MULTIVIT Yes Take by Univer s &MINERALS/F - mouth. ity of ERROUS FUM 10:41: [place] (MULTI 15 Medical VITAMIN Branch ORAL) METHYLCELLU 2022-0 Yes Univer s LOSE (FIBER 9-22 ity of THERAPY 10:41: [facility]) 15 Medical Branch vitamin C Yes [...] 06-17 mouth ity of EXTRACT 10:41: daily. [place] (CRANBERRY 15 Medical ORAL) Branch CALCIUM Yes Take by Univers ORAL 06-17 mouth ity of 10:41: daily. [place] [address] Medical Branch DOCOSAHEXAN Yes 1000mg Take 1,000 Univers OIC 9-22 mg by ity of ACID/EPA 10:41: mouth [place] (FISH OIL 15 daily. Medical ORAL) Branch BIOTIN ORAL Yes Take by Uni vers 06-17 mouth. ity of 10:41: [place] [address] Medical Branch FOLIC ACID Yes Take by Univ ers ORAL 06-17 mouth ity of 10:41: daily. [place] [address] Medical Branch MULTIVIT Yes Take by Univer s &MINERALS/F 06-17 mouth. ity of ERROUS FUM 10:41: [place] (MULTI 15 Medical VITAMIN Branch ORAL) METHYLCELLU Yes Univer s LOSE (FIBER - ity of THERAPY 10:41: [facility]) 15 Medical Branch vitamin C Yes [...] - mouth ity of EXTRACT 10:41: daily. [place] (CRANBERRY 15 Medical ORAL) Branch CALCIUM Yes Take by Univers ORAL - mouth ity of 10:41: daily. [place] 15 Medical Branch DOCOSAHEXAN Yes 1000mg Take 1,000 Univers OIC 9-22 mg by ity of ACID/EPA 10:41: mouth [place] (FISH OIL 15 daily. Medical ORAL) Branch BIOTIN ORAL 0 Yes Take by Uni vers 9-22 mouth. ity of 10:41: [place] 15 Medical Branch FOLIC ACID 0 Yes Take by Univ ers ORAL 9-22 mouth ity of 10:41: daily. [place] [address] Medical Branch MULTIVIT 0 Yes Take by Univer s &MINERALS/F - mouth. ity of ERROUS FUM 10:41: [place] (MULTI 15 Medical VITAMIN Branch ORAL) METHYLCELLU 0 Yes Univer s LOSE (FIBER 06-17 ity of THERAPY 10:41: [facility]) Medical Branch vitamin C Yes 1000mg [...] - mouth ity of EXTRACT 10:41: daily. [place] (CRANBERRY 15 Medical ORAL) Branch CALCIUM Yes Take by Univers ORAL 9- mouth ity of 10:41: daily. [place] Medical Branch DOCOSAHEXAN Yes 1000mg Take 1,000 Univers OIC 9-22 mg by ity of ACID/EPA 10:41: mouth [place] (FISH OIL 15 daily. Medical ORAL) Branch BIOTIN ORAL Yes Take by Uni vers 9-22 mouth. ity of 10:41: [place] [address] Medical Branch FOLIC ACID 0 Yes Take by Univ ers ORAL 9-22 mouth ity of 10:41: daily. [place] [address] Medical Branch MULTIVIT 0 Yes Take by Univer s &MINERALS/F -22 mouth. ity of ERROUS FUM 10:41: [place] (MULTI 15 Medical VITAMIN Branch ORAL) METHYLCELLU 0 Yes Univer s LOSE (FIBER - ity of THERAPY 10:41: [facility] [place], [place] 15 Medical Branch vitamin C Yes 1000mg [...] 06-17 mouth ity of EXTRACT 10:41: daily. [place] (CRANBERRY 15 Medical ORAL) Branch CALCIUM Yes Take by Univers ORAL 06-17 mouth ity of 10:41: daily. [place] [address] Medical Branch DOCOSAHEXAN Yes 1000mg Take 1,000 Univers OIC 9-22 mg by ity of ACID/EPA 10:41: mouth [place] (FISH OIL 15 daily. Medical ORAL) Branch BIOTIN ORAL Yes Take by Uni vers 06-17 mouth. ity of 10:41: [place] [address] Medical Branch FOLIC ACID Yes Take by Univ ers ORAL 06-17 mouth ity of 10:41: daily. [place] [address] Medical Branch MULTIVIT Yes Take by Univer s &MINERALS/F 06-17 mouth. ity of ERROUS FUM 10:41: [place] (MULTI 15 Medical VITAMIN Branch ORAL) METHYLCELLU Yes Univer s LOSE (FIBER 06-17 ity of THERAPY 10:41: [facility] [place], [place] 15 Medical Branch vitamin C Yes 1000mg [...] - mouth ity of EXTRACT 10:41: daily. [place] (CRANBERRY 15 Medical ORAL) Branch CALCIUM Yes Take by Univers ORAL - mouth ity of 10:41: daily. [place] [address] Medical Branch DOCOSAHEXAN Yes 1000mg Take 1,000 Univers OIC 9-22 mg by ity of ACID/EPA 10:41: mouth [place] (FISH OIL 15 daily. Medical ORAL) Branch BIOTIN ORAL Yes Take by Uni vers - mouth. ity of 10:41: [place] 15 Medical Branch FOLIC ACID 0 Yes Take by Univ ers ORAL - mouth ity of 10:41: daily. [place] 15 Medical Branch MULTIVIT Yes Take by Univer s &MINERALS/F - mouth. ity of ERROUS FUM 10:41: [place] (MULTI 15 Medical VITAMIN Branch ORAL) METHYLCELLU 0 Yes Univer s LOSE (FIBER 9-22 ity of THERAPY 10:41: [facility]) 15 Medical Branch vitamin C Yes [...] 06-17 mouth ity of EXTRACT 10:41: daily. [place] (CRANBERRY 15 Medical ORAL) Branch CALCIUM Yes Take by Univers ORAL - mouth ity of 10:41: daily. [place] 15 Medical Branch DOCOSAHEXAN Yes 1000mg Take 1,000 Univers OIC 9-22 mg by ity of ACID/EPA 10:41: mouth [place] (FISH OIL 15 daily. Medical ORAL) Branch BIOTIN ORAL Yes Take by Uni vers - mouth. ity of 10:41: [place] 15 Medical Branch FOLIC ACID 0 Yes Take by Univ ers ORAL - mouth ity of 10:41: daily. [place] 15 Medical Branch MULTIVIT 0 Yes Take by Univer s &MINERALS/F - mouth. ity of ERROUS FUM 10:41: [place] (MULTI 15 Medical VITAMIN Branch ORAL) METHYLCELLU 0 Yes Univer s LOSE (FIBER 9-22 ity of THERAPY 10:41: [facility]) Medical Branch vitamin C 0 Yes [...] 06-17 mouth ity of EXTRACT 10:41: daily. [place] (CRANBERRY 15 Medical ORAL) Branch CALCIUM Yes Take by Univers ORAL 06-17 mouth ity of 10:41: daily. [place] 15 Medical Branch DOCOSAHEXAN Yes 1000mg Take 1,000 Univers OIC 9-22 mg by ity of ACID/EPA 10:41: mouth [place] (FISH OIL 15 daily. Medical ORAL) Branch BIOTIN ORAL Yes Take by Uni vers 06-17 mouth. ity of 10:41: [place] [address] Medical Branch FOLIC ACID Yes Take by Univ ers ORAL 06-17 mouth ity of 10:41: daily. [place] [address] Medical Branch [facility]IVIT [facility]-17 mouth. ity of ERROUS FUM 10:41: [place] (MULTI 15 Medical VITAMIN Branch ORAL) [facility]YLCELLU [facility]17 ity of THERAPY 10:41: [facility]) Medical Branch vitamin C Yes 1000mg [...] - mouth ity of EXTRACT 10:41: daily. [place] (CRANBERRY 15 Medical ORAL) Branch CALCIUM Yes Take by Univers ORAL 06-17 mouth ity of 10:41: daily. [place] [facility] Branch DOCOSAHEXAN Yes 1000mg Take 1,000 Univers OIC 9-22 mg by ity of ACID/EPA 10:41: mouth [place] (FISH OIL 15 daily. Medical ORAL) Branch BIOTIN ORAL Yes Take by Uni vers -22 mouth. ity of 10:41: [place] 15 Medical Branch FOLIC ACID 0 Yes Take by Univ ers ORAL - mouth ity of 10:41: daily. [place] 15 Medical Branch MULTIVIT 0 Yes Take by Univer s &MINERALS/F - mouth. ity of ERROUS FUM 10:41: [place] (MULTI 15 Medical VITAMIN Branch ORAL) METHYLCELLU 0 Yes Univer s LOSE (FIBER 9-22 ity of THERAPY 10:41: [facility]) 15 Medical Branch vitamin C Yes [...] 06-17 mouth ity of EXTRACT 10:41: daily. [place] (CRANBERRY 15 Medical ORAL) Branch CALCIUM Yes Take by Univers ORAL 06-17 mouth ity of 10:41: daily. [place] 15 Medical Branch DOCOSAHEXAN Yes 1000mg Take 1,000 Univers OIC 9-22 mg by ity of ACID/EPA 10:41: mouth [place] (FISH OIL 15 daily. Medical ORAL) Branch BIOTIN ORAL Yes Take by Uni vers - mouth. ity of 10:41: [place] 15 Medical Branch FOLIC ACID 0 Yes Take by Univ ers ORAL - mouth ity of 10:41: daily. [place] 15 Medical Branch MULTIVIT 0 Yes Take by Univer s &MINERALS/F - mouth. ity of ERROUS FUM 10:41: [place] (MULTI 15 Medical VITAMIN Branch ORAL) METHYLCELLU 0 Yes Univer s LOSE (FIBER 9-22 ity of THERAPY 10:41: [facility]) 15 Medical Branch vitamin C 0 [...] 06-17 mouth ity of EXTRACT 10:41: daily. [place] (CRANBERRY 15 Medical ORAL) Branch CALCIUM Yes Take by Univers ORAL 06-17 mouth ity of 10:41: daily. [place] 15 Medical Branch DOCOSAHEXAN Yes 1000mg Take 1,000 Univers OIC 9-22 mg by ity of ACID/EPA 10:41: mouth [place] (FISH OIL 15 daily. Medical ORAL) Branch BIOTIN ORAL Yes Take by Uni vers 06-17 mouth. ity of 10:41: [place] [address] Medical Branch FOLIC ACID Yes Take by Univ ers ORAL 06-17 mouth ity of 10:41: daily. [place] [address] Medical Branch MULTIVIT Yes Take by Univer s &MINERALS/F 06-17 mouth. ity of ERROUS FUM 10:41: [place] (MULTI 15 Medical VITAMIN Branch ORAL) METHYLCELLU Yes Univer s LOSE (FIBER 06-17 ity of THERAPY 10:41: [facility]) Medical Branch vitamin C Yes 1000mg [...] - mouth ity of EXTRACT 10:41: daily. [place] (CRANBERRY 15 Medical ORAL) Branch CALCIUM Yes Take by Univers ORAL - mouth ity of 10:41: daily. [place] 15 Medical Branch DOCOSAHEXAN Yes 1000mg Take 1,000 [facility] OIC 9-22 mg by ity of ACID/EPA 10:41: mouth [place] (FISH OIL 15 daily. Medical ORAL) Branch BIOTIN ORAL Yes Take by Uni vers 06-17 mouth. ity of 10:41: [place] [address] Medical Branch FOLIC ACID 0 Yes Take by Univ ers ORAL - mouth ity of 10:41: daily. [place] 15 Medical Branch MULTIVIT 0 Yes Take by Univer s &MINERALS/F 06-17 mouth. ity of ERROUS FUM 10:41: [place] (MULTI 15 Medical VITAMIN Branch ORAL) METHYLCELLU 0 Yes Univer s LOSE (FIBER - ity of THERAPY 10:41: [facility]) 15 Medical Branch vitamin C 0 Yes 1000mg Take 1,000 Univers with derrell 9-22 mg by ity of hips 1,000 10:41: mouth [place] mg tablet 15 daily. Medical Branch cholecalcif 0 Yes 1000U Take 1,000 Univers edmar, 9-22 Units by ity of vitamin D3, 10:41: mouth [place] 25 mcg 15 daily. Medical (1,000 Branch unit) tablet CRANBERRY Yes Take by [facility] rs FRUIT 06-17 mouth ity of EXTRACT 10:41: daily. [place] (CRANBERRY 15 Medical ORAL) Branch CALCIUM 0 Yes Take by Univers ORAL 06-17 mouth ity of 10:41: daily. [place] 15 Medical Branch DOCOSAHEXAN Yes 1000mg Take 1,000 Univers OIC 9-22 mg by ity of ACID/EPA 10:41: mouth [place] (FISH OIL 15 daily. Medical ORAL) Branch BIOTIN ORAL 0 Yes Take by Uni vers 06-17 mouth. ity of 10:41: [place] [address] Medical Branch FOLIC ACID 0 Yes Take by Univ ers ORAL - mouth ity of 10:41: daily. [place] [address] Medical Branch MULTIVIT 0 Yes Take by Univer s &MINERALS/F - mouth. ity of ERROUS FUM 10:41: [place] (MULTI 15 Medical VITAMIN Branch ORAL) METHYLCELLU 2021-0 Yes Univer s LOSE (FIBER - ity of THERAPY 10:41: [facility]) Medical Branch vitamin C 0 Yes [...] -22 mouth ity of EXTRACT 10:41: daily. [place] (CRANBERRY 15 Medical ORAL) Branch CALCIUM 0 [...] [place] 15 Medical Branch SUMAtriptan 0 Yes [id number] 50mg Take 1 Univers 50 mg 9-22 tablet by ity of tablet 00:00: mouth as [place] 00 needed for Medical Migraine. Branch topiramate 0 Yes [id number] 75mg Take 3 Univers 25 mg 9-22 tablets by ity of tablet 00:00: mouth in [place] 00 the Medical morning Branch and 3 tablets in the evening. SUMAtriptan 2021-0 Yes [id number] 50mg Take 1 Univers 50 mg 9-22 tablet by ity of tablet 00:00: mouth as [place] 00 needed for Medical Migraine. Branch topiramate 2021-0 Yes [id number] 75mg Take 3 Univers 25 mg 9-22 tablets by ity of tablet 00:00: mouth in [place] 00 the Medical morning Branch and 3 tablets in the evening. SUMAtriptan 2021-0 Yes [id number] 50mg Take 1 Univers 50 mg 9-22 tablet by ity of tablet 00:00: mouth as [place] 00 needed for Medical Migraine. Branch topiramate 2021-0 Yes [id number] 75mg Take 3 Univers 25 mg 9-22 tablets by ity of tablet 00:00: mouth in [place] 00 the Medical morning Branch and 3 tablets in the evening. SUMAtriptan 2021-0 Yes [id number] 50mg Take 1 Univers 50 mg 9-22 tablet by ity of tablet 00:00: mouth as [place] 00 needed for Medical Migraine. Branch topiramate 2021-0 Yes [id number] 75mg Take 3 Univers 25 mg 9-22 tablets by ity of tablet 00:00: mouth in [place] 00 the Medical morning Branch and 3 tablets in the evening. topiramate 2021-0 Yes [id number] 75mg Take 3 Univers 25 mg 9-22 tablets by ity of tablet 00:00: mouth in [place] 00 the Medical morning Branch and 3 tablets in the evening. topiramate 2021-0 Yes [id number] 75mg Take 3 Univers 25 mg 9-22 tablets by ity of tablet 00:00: mouth in [place] 00 the Medical morning Branch and 3 tablets in the evening. topiramate 2021-0 Yes [id number] 75mg Take 3 Univers 25 mg 9-22 tablets by ity of tablet 00:00: mouth in [place] 00 the Medical morning Branch and 3 tablets in the evening. topiramate 2021-0 Yes [id number] 75mg Take 3 Univers 25 mg 9-22 tablets by ity of tablet 00:00: mouth in [place] 00 the Medical morning Branch and 3 tablets in the evening. topiramate 2021-0 Yes [id number] 75mg Take 3 Univers 25 mg 9-22 tablets by ity of tablet 00:00: mouth in [place] 00 the Medical morning Branch and 3 tablets in the evening. topiramate 2021-0 Yes [id number] 75mg Take 3 Univers 25 mg 9-22 tablets by ity of tablet 00:00: mouth in [place] 00 the Medical morning Branch and 3 tablets in the evening. topiramate 2021-0 2021- No [id number] 75mg Take 3 Univers 25 mg 9-22 10-13 tablets by ity of tablet 00:00: 00:00 mouth in [place] 00 :00 the Medical morning Branch and 3 tablets in the evening. SUMAtriptan 2021-0 2021- No [id number] 50mg Take 1 Univers 50 mg 9-22 09-30 tablet by ity of tablet 00:00: 00:00 mouth as [place] 00 :00 needed for Medical Migraine. Branch pantoprazol 2021-0 Yes [id number] 40mg Take 1 Univers e 40 mg EC 9-16 tablet by ity of tablet 00:00: mouth in [place] 00 the Medical morning. Branch Simethicone 2021-0 Yes [id number] 125mg Take 1 Univers 125 mg 9-16 capsule by ity of 00:00: mouth [place] 00 after Medical meals and Branch at bedtime as needed for Gas (Per bowel prep). pantoprazol 2021-0 Yes [id number] 40mg Take 1 Univers e 40 mg EC 9-16 tablet by ity of tablet 00:00: mouth in [place] 00 the Medical morning. Branch Simethicone 2021-0 Yes [id number] 125mg Take 1 Univers 125 mg 9-16 capsule by ity of 00:00: mouth [place] 00 after Medical meals and Branch at bedtime as needed for Gas (Per bowel prep). pantoprazol 2021-0 Yes [id number] 40mg Take 1 Univers e 40 mg EC 9-16 tablet by ity of tablet 00:00: mouth in [place] 00 the Medical morning. Branch Simethicone 2021-0 Yes [id number] 125mg Take 1 Univers 125 mg 9-16 capsule by ity of 00:00: mouth [place] 00 after Medical meals and Branch at bedtime as needed for Gas (Per bowel prep). pantoprazol 2021-0 Yes [id number] 40mg Take 1 Univers e 40 mg EC 9-16 tablet by ity of tablet 00:00: mouth in [place] 00 the Medical morning. Branch Simethicone 0 Yes [id number] 125mg Take 1 Univers 125 mg 9-16 capsule by ity of 00:00: mouth [place] 00 after Medical meals and Branch at bedtime as needed for Gas (Per bowel prep). pantoprazol 2021-0 Yes [id number] 40mg Take 1 Univers e 40 mg EC 9-16 tablet by ity of tablet 00:00: mouth in [place] 00 the Medical morning. Branch Simethicone 2021-0 Yes [id number] 125mg Take 1 Univers 125 mg 9-16 capsule by ity of 00:00: mouth [place] 00 after Medical meals and Branch at bedtime as needed for Gas (Per bowel prep). pantoprazol 2021-0 Yes [id number] 40mg Take 1 Univers e 40 mg EC 9-16 tablet by ity of tablet 00:00: mouth in [place] 00 the Medical morning. Branch Simethicone 2021-0 Yes [id number] 125mg Take 1 Univers 125 mg 9-16 capsule by ity of 00:00: mouth [place] 00 after Medical meals and Branch at bedtime as needed for Gas (Per bowel prep). pantoprazol 2021-0 Yes [id number] 40mg Take 1 Univers e 40 mg EC 9-16 tablet by ity of tablet 00:00: mouth in [place] 00 the Medical morning. Branch Simethicone 2021-0 Yes [id number] 125mg Take 1 Univers 125 mg 9-16 capsule by ity of 00:00: mouth [place] 00 after Medical meals and Branch at bedtime as needed for Gas (Per bowel prep). pantoprazol Yes [id number] 40mg Take 1 Univers e 40 mg EC 9-16 tablet by ity of tablet 00:00: mouth in [place] 00 the Medical morning. Branch Simethicone 0 Yes [id number] 125mg Take 1 Univers 125 mg 9-16 capsule by ity of 00:00: mouth [place] 00 after Medical meals and Branch at bedtime as needed for Gas (Per bowel prep). pantoprazol Yes [id number] 40mg Take 1 Univers e 40 mg EC 9-16 tablet by ity of tablet 00:00: mouth in [place] 00 the Medical morning. Branch Simethicone 0 Yes [id number] 125mg Take 1 Univers 125 mg 9-16 capsule by ity of 00:00: mouth [place] 00 after Medical meals and Branch at bedtime as needed for Gas (Per bowel prep). pantoprazol Yes [id number] 40mg Take 1 Univers e 40 mg EC 9-16 tablet by ity of tablet 00:00: mouth in [place] 00 the Medical morning. Branch Simethicone 0 Yes [id number] 125mg Take 1 Univers 125 mg 9-16 capsule by ity of 00:00: mouth [place] 00 after Medical meals and Branch at bedtime as needed for Gas (Per bowel prep). pantoprazol 0 Yes [id number] 40mg Take 1 Univers e 40 mg EC 9-16 tablet by ity of tablet 00:00: mouth in [place] 00 the Medical morning. Branch Simethicone 0 Yes [id number] 125mg Take 1 Univers 125 mg 9-16 capsule by ity of 00:00: mouth [place] 00 after Medical meals and Branch at bedtime as needed for Gas (Per bowel prep). pantoprazol 2021-0 Yes [id number] 40mg Take 1 Univers e 40 mg EC 9-16 tablet by ity of tablet 00:00: mouth in [place] 00 the Medical morning. Branch Simethicone 0 Yes [id number] 125mg Take 1 [facility] 125 mg 9-16 capsule by ity of 00:00: mouth [place] 00 after Medical meals and Branch at bedtime as needed for Gas (Per bowel prep). pantoprazol 0 Yes [id number] 40mg Take 1 Univers e 40 mg EC 9-16 tablet by ity of tablet 00:00: mouth in [place] 00 the Medical morning. Branch Simethicone 0 Yes [id number] 125mg Take 1 Univers 125 mg 9-16 capsule by ity of 00:00: mouth [place] 00 after Medical meals and Branch at bedtime as needed for Gas (Per bowel prep). pantoprazol 0 Yes [id number] 40mg Take 1 Univers e 40 mg EC 9-16 tablet by ity of tablet 00:00: mouth in [place] 00 the Medical morning. Branch Simethicone 0 Yes [id number] 125mg Take 1 Univers 125 mg 9-16 capsule by ity of 00:00: mouth [place] 00 after Medical meals and Branch at bedtime as needed for Gas (Per bowel prep). pantoprazol 0 Yes [id number] 40mg Take 1 Univers e 40 mg EC 9-16 tablet by ity of tablet 00:00: mouth in [place] 00 the Medical morning. Branch Simethicone 0 Yes [id number] 125mg Take 1 Univers 125 mg 9-16 capsule by ity of 00:00: mouth [place] 00 after Medical meals and Branch at bedtime as needed for Gas (Per bowel prep). Simethicone 2021-0 Yes [id number] 125mg Take 1 Univers 125 mg 9-16 capsule by ity of 00:00: mouth [place] 00 after Medical meals and Branch at bedtime as needed for Gas (Per bowel prep). Simethicone 0 Yes [id number] 125mg Take 1 Univers 125 mg 9-16 capsule by ity of 00:00: mouth [place] 00 after Medical meals and Branch at bedtime as needed for Gas (Per bowel prep). Simethicone 0 2021- No [id number] 125mg Take 1 Univers 125 mg 9-16 11- capsule by ity of 00:00: 00:00 mouth [place] 00 :00 after Medical meals and Branch at bedtime as needed for Gas (Per bowel prep). Simethicone 2021-0 2021- No [id number] 125mg Take 1 Univers 125 mg -16 11- capsule by ity of 00:00: 00:00 mouth [place] 00 :00 after Medical meals and Branch at bedtime as needed for Gas (Per bowel prep). pantoprazol 2021-0 2021- No [id number] 40mg Take 1 Univers e 40 mg EC -16 10-13 tablet by ity of tablet 00:00: 00:00 mouth in [place] 00 :00 the Medical morning. Branch SUMAtriptan 2021-0 Yes [id number] TAKE 1 [facility] 50 mg 9-06 TABLET BY ity of tablet 00:00: MOUTH [place] 00 NEEDED FOR Medical MIGRAINE Branch HEADACHE ( MAY REPEAT IN 2 HOURS ) SUMAtriptan 2021-0 Yes [id number] TAKE 1 [facility] 50 mg 9-06 TABLET BY ity of tablet 00:00: MOUTH [place] 00 NEEDED FOR Medical MIGRAINE Branch HEADACHE ( MAY REPEAT IN 2 HOURS ) SUMAtriptan 2021-0 Yes [id number] TAKE 1 [facility] 50 mg 9-06 TABLET BY ity of tablet 00:00: MOUTH [place] 00 NEEDED FOR Medical MIGRAINE Branch HEADACHE ( MAY REPEAT IN 2 HOURS ) SUMAtriptan 2021-0 Yes [id number] TAKE 1 [facility] 50 mg 9-06 TABLET BY ity of tablet 00:00: MOUTH [place] 00 NEEDED FOR Medical MIGRAINE Branch HEADACHE ( MAY REPEAT IN 2 HOURS ) SUMAtriptan 2021-0 Yes [id number] TAKE 1 [facility] 50 mg 9-06 TABLET BY ity of tablet 00:00: MOUTH [place] 00 NEEDED FOR Medical MIGRAINE Branch HEADACHE ( MAY REPEAT IN 2 HOURS ) SUMAtriptan 2021-0 Yes [id number] TAKE 1 [facility] 50 mg 9-06 TABLET BY ity of tablet 00:00: MOUTH [place] 00 NEEDED FOR Medical MIGRAINE Branch HEADACHE ( MAY REPEAT IN 2 HOURS ) SUMAtriptan 2021-0 Yes [id number] TAKE 1 [facility] 50 mg 9-06 TABLET BY ity of tablet 00:00: MOUTH [place] 00 NEEDED FOR Medical MIGRAINE Branch HEADACHE ( MAY REPEAT IN 2 HOURS ) SUMAtriptan 2021-0 Yes [id number] TAKE 1 [facility] 50 mg 9-06 TABLET BY ity of tablet 00:00: MOUTH [place] 00 NEEDED FOR Medical MIGRAINE Branch HEADACHE ( MAY REPEAT IN 2 HOURS ) SUMAtriptan 2021-0 Yes [id number] TAKE 1 [facility] 50 mg 9-06 TABLET BY ity of tablet 00:00: MOUTH [place] 00 NEEDED FOR Medical MIGRAINE Branch HEADACHE ( MAY REPEAT IN 2 HOURS ) SUMAtriptan 2021-0 Yes [id number] TAKE 1 [facility] 50 mg 9-06 TABLET BY ity of tablet 00:00: MOUTH [place] 00 NEEDED FOR Medical MIGRAINE Branch HEADACHE ( MAY REPEAT IN 2 HOURS ) SUMAtriptan 2021-0 Yes [id number] TAKE 1 [facility] 50 mg 9-06 TABLET BY ity of tablet 00:00: MOUTH [place] 00 NEEDED FOR Medical MIGRAINE Branch HEADACHE ( MAY REPEAT IN 2 HOURS ) SUMAtriptan 2021-0 Yes [id number] TAKE 1 [facility] 50 mg 9-06 TABLET BY ity of tablet 00:00: MOUTH [place] 00 NEEDED FOR Medical MIGRAINE Branch HEADACHE ( MAY REPEAT IN 2 HOURS ) SUMAtriptan 2021-0 2021- No [id number] TAKE 1 [facility] 50 mg 9-06 -22 TABLET BY ity of tablet 00:00: 00:00 MOUTH [place] 00 :00 NEEDED FOR Medical MIGRAINE Branch HEADACHE ( MAY REPEAT IN 2 HOURS ) SUMAtriptan 2021-0 2021- No [id number] TAKE 1 [facility] 50 mg 9-06 -22 TABLET BY ity of tablet 00:00: 00:00 MOUTH [place] 00 :00 NEEDED FOR Medical MIGRAINE Branch HEADACHE ( MAY REPEAT IN 2 HOURS ) SUMAtriptan 2021-0 2021- No [id number] TAKE 1 [facility] 50 mg 9-06 09-22 TABLET BY ity of tablet 00:00: 00:00 MOUTH [place] 00 :00 NEEDED FOR Medical MIGRAINE Branch HEADACHE ( MAY REPEAT IN 2 HOURS ) topiramate 2021-0 Yes [id number] Take 2 [facility] 25 mg 9-01 tablets by ity of tablet 00:00: mouth [place] 00 twice Medical daily Branch topiramate 2-0 Yes [id number] Take 2 [facility] 25 mg 9-01 tablets by ity of tablet 00:00: mouth [place] 00 twice Medical daily Branch topiramate 2-0 Yes [id number] Take 2 [facility] 25 mg 9-01 tablets by ity of tablet 00:00: mouth [place] 00 twice Medical daily Branch topiramate 2-0 Yes [id number] Take 2 [facility] 25 mg 9-01 tablets by ity of tablet 00:00: mouth [place] 00 twice Medical daily Branch topiramate 2022-0 Yes [id number] Take 2 [facility] 25 mg 9-01 tablets by ity of tablet 00:00: mouth [place] 00 twice Medical daily Branch topiramate 2022-0 Yes [id number] Take 2 [facility] 25 mg 9-01 tablets by ity of tablet 00:00: mouth [place] 00 twice Medical daily Branch topiramate 2022-0 Yes [id number] Take 2 [facility] 25 mg 9-01 tablets by ity of tablet 00:00: mouth [place] 00 twice Medical daily Branch topiramate 2022-0 Yes [id number] Take 2 [facility] 25 mg 9-01 tablets by ity of tablet 00:00: mouth [place] 00 twice Medical daily Branch topiramate 2022-0 Yes [id number] Take 2 [facility] 25 mg 9-01 tablets by ity of tablet 00:00: mouth [place] twice Medical daily Branch topiramate 2022-0 Yes [id number] Take 2 [facility] 25 mg 9-01 tablets by ity of tablet 00:00: mouth [place] 00 twice Medical daily Branch topiramate 2022-0 Yes [id number] Take 2 [facility] 25 mg 9-01 tablets by ity of tablet 00:00: mouth [place] 00 twice Medical daily Branch topiramate 2022-0 Yes [id number] Take 2 [facility] 25 mg 9-01 tablets by ity of tablet 00:00: mouth [place] 00 twice Medical daily Branch topiramate 2022-0 Yes [id number] Take 2 [facility] 25 mg 9-01 tablets by ity of tablet 00:00: mouth [place] 00 twice Medical daily Branch topiramate 2022-0 Yes [id number] Take 2 [facility] 25 mg 9-01 tablets by ity of tablet 00:00: mouth [place] 00 twice Medical daily Branch topiramate 2022-0 Yes [id number] Take 2 [facility] 25 mg 9-01 tablets by ity of tablet 00:00: mouth [place] 00 twice Medical daily Branch topiramate 2022-0 2- No [id number] Take 2 [facility] 25 mg 9-01 - tablets by ity of tablet 00:00: 00:00 mouth [place] 00 :00 twice Medical daily Branch topiramate 2022-0 2- No [id number] Take 2 [facility] 25 mg 9-01 -22 tablets by ity of tablet 00:00: 00:00 mouth [place] 00 :00 twice Medical daily Branch topiramate 2021- No [id number] Take 2 [facility] 25 mg -06-17 tablets by ity of tablet 00:00: 00:00 mouth [place] 00 :00 twice Medical daily Branch methocarbam 2021-0 Yes [id number] 500mg Take 1 [facility] oL 500 mg 8-11 tablet by ity o f tablet 00:00: mouth (four) Medical times Branch daily as needed for Pain (scale 7-10). methocarbam Yes [id number] 500mg Take 1 [facility] oL 500 mg 8-11 tablet by ity o f tablet 00:00: mouth (four) Medical times Branch daily as needed for Pain (scale 7-10). methocarbam Yes [id number] 500mg Take 1 [facility] 500 mg 8-11 tablet by [facility] tablet 00:00: mouth (four) Medical times Branch daily as needed for Pain (scale 7-10). methocarbam Yes [id number] 500mg Take 1 [facility] o[facility] 500 mg 8-11 tablet by [facility] tablet 00:00: mouth (four) Medical times Branch daily as needed for Pain (scale 7-10). methocarbam 2021-0 Yes [id number] 500mg Take 1 [facility] 500 mg 8-11 tablet by [facility] tablet 00:00: mouth (four) Medical times Branch daily as needed for Pain (scale 7-10). methocarbam 2021-0 Yes [id number] 500mg Take 1 [facility] 500 mg 8-11 tablet by [facility] tablet 00:00: mouth (four) Medical times Branch daily as needed for Pain (scale 7-10). methocarbam 2021-0 Yes [id number] 500mg Take 1 [facility] 500 mg 8-11 tablet by [facility] tablet 00:00: mouth (four) Medical times Branch daily as needed for Pain (scale 7-10). methocarbam 2021-0 Yes [id number] 500mg Take 1 [facility] 500 mg 8-11 tablet by [facility] tablet 00:00: mouth (four) Medical times Branch daily as needed for Pain (scale 7-10). methocarbam 2022-0 Yes [id number] 500mg Take 1 [facility] 500 mg 8-11 tablet by [facility] tablet 00:00: mouth (four) Medical times Branch daily as needed for Pain (scale 7-10). methocarbam 2022-0 Yes [id number] 500mg Take 1 [facility] 500 mg 8-11 tablet by [facility] tablet 00:00: mouth (four) Medical times Branch daily as needed for Pain (scale 7-10). methocarbam 2022-0 Yes [id number] 500mg Take 1 [facility] o[facility] 500 mg 8-11 tablet by [facility] tablet 00:00: mouth (four) Medical times Branch daily as needed for Pain (scale 7-10). methocarbam 2022-0 Yes [id number] 500mg Take 1 [facility] 500 mg 8-11 tablet by [facility] tablet 00:00: mouth (four) Medical times Branch daily as needed for Pain (scale 7-10). methocarbam 2022-0 Yes [id number] 500mg Take 1 [facility] 500 mg 8-11 tablet by [facility] tablet 00:00: mouth (four) Medical times Branch daily as needed for Pain (scale 7-10). methocarbam 2022-0 Yes [id number] 500mg Take 1 [facility] 500 mg 8-11 tablet by [facility] tablet 00:00: mouth (four) Medical times Branch daily as needed for Pain (scale 7-10). methocarbam 2022-0 Yes [id number] 500mg Take 1 [facility] 500 mg 8-11 tablet by [facility] tablet 00:00: mouth (four) Medical times Branch daily as needed for Pain (scale 7-10). methocarbam 2022-0 Yes [id number] 500mg Take 1 [facility] 500 mg 8-11 tablet by [facility] tablet 00:00: mouth (four) Medical times Branch daily as needed for Pain (scale 7-10). methocarbam 2022-0 Yes [id number] 500mg Take 1 [facility] 500 mg 8-11 tablet by [facility] tablet 00:00: mouth (four) Medical times Branch daily as needed for Pain (scale 7-10). methocarbam 2022-0 Yes [id number] 500mg Take 1 [facility] 500 mg 8-11 tablet by [facility] tablet 00:00: mouth (four) Medical times Branch daily as needed for Pain (scale 7-10). methocarbam 2022-0 Yes [id number] 500mg Take 1 [facility] 500 mg 8-11 tablet by [facility] tablet 00:00: mouth (four) Medical times [facility] daily as needed for Pain (scale 7-10). methocarbam 2022-0 Yes [id number] 500mg Take 1 [facility] 500 mg 8-11 tablet by [facility] tablet 00:00: mouth (four) Medical times [facility] daily as needed for Pain (scale 7-10). methocarbam 2022-0 Yes [id number] 500mg Take 1 [facility] 500 mg 8-11 tablet by [facility] tablet 00:00: mouth (four) Medical times [facility] daily as needed for Pain (scale 7-10). methocarbam 2-0 Yes [id number] 500mg Take 1 [facility] 500 mg 8-11 tablet by [facility] tablet 00:00: mouth (four) Medical times [facility] daily as needed for Pain (scale 7-10). methocarbam 2022-0 Yes [id number] 500mg Take 1 [facility] 500 mg 8-11 tablet by [facility] tablet 00:00: mouth (four) Medical times [facility] daily as needed for Pain (scale 7-10). methocarbam 2022-0 Yes [id number] 500mg Take 1 [facility] 500 mg 8-11 tablet by [facility] tablet 00:00: mouth (four) Medical times [facility] daily as needed for Pain (scale 7-10). methocarbam 2022-0 Yes [id number] 500mg Take 1 [facility] 500 mg 8-11 tablet by [facility] tablet 00:00: mouth (four) Medical times [facility] daily as needed for Pain (scale 7-10). methocarbam 2022-0 Yes [id number] 500mg Take 1 [facility] 500 mg 8-11 tablet by [facility] tablet 00:00: mouth (four) Medical times [facility] daily as needed for Pain (scale 7-10). methocarbam 2-0 Yes [id number] 500mg Take 1 [facility] 500 mg 8-11 tablet by [facility] tablet 00:00: mouth (four) Medical times Branch daily as needed for Pain (scale 7-10). methocarbam 2-0 Yes [id number] 500mg Take 1 [facility] 500 mg 8-11 tablet by [facility] tablet 00:00: mouth (four) Medical times [facility] daily as needed for Pain (scale 7-10). methocarbam 2-0 Yes [id number] 500mg Take 1 [facility] 500 mg 8-11 tablet by [facility] tablet 00:00: mouth (four) Medical times [facility] daily as needed for Pain (scale 7-10). methocarbam 2-0 Yes [id number] 500mg Take 1 [facility] 500 mg 8-11 tablet by [facility] tablet 00:00: mouth (four) Medical times [facility] daily as needed for Pain (scale 7-10). methocarbam 2-0 Yes [id number] 500mg Take 1 [facility] 500 mg 8-11 tablet by [facility] tablet 00:00: mouth (four) Medical times Branch daily as needed for Pain (scale 7-10). methocarbam 2-0 Yes [id number] 500mg Take 1 [facility] 500 mg 8-11 tablet by [facility] tablet 00:00: mouth (four) Medical times Branch daily as needed for Pain (scale 7-10). methocarbam 2-0 Yes [id number] 500mg Take 1 [facility] 500 mg 8-11 tablet by [facility] tablet 00:00: mouth (four) Medical times [facility] daily as needed for Pain (scale 7-10). methocarbam 2-0 Yes [id number] 500mg Take 1 [facility] 500 mg 8-11 tablet by [facility] tablet 00:00: mouth (four) Medical times [facility] daily as needed for Pain (scale 7-10). methocarbam 2-0 Yes [id number] 500mg Take 1 [facility] 500 mg 8-11 tablet by [facility] tablet 00:00: mouth (four) Medical times Branch daily as needed for Pain (scale 7-10). methocarbam 2022-0 Yes [id number] 500mg Take 1 [facility] 500 mg 8-11 tablet by [facility] tablet 00:00: mouth (four) Medical times Branch daily as needed for Pain (scale 7-10). methocarbam 2-0 Yes [id number] 500mg Take 1 [facility] 500 mg 8-11 tablet by [facility] tablet 00:00: mouth (four) Medical times [facility] daily as needed for Pain (scale 7-10). methocarbam 2022-0 Yes [id number] 500mg Take 1 [facility] 500 mg 8-11 tablet by [facility] tablet 00:00: mouth (four) Medical times [facility] daily as needed for Pain (scale 7-10). methocarbam 2-0 Yes [id number] 500mg Take 1 [facility] 500 mg 8-11 tablet by [facility] tablet 00:00: mouth (four) Medical times [facility] daily as needed for Pain (scale 7-10). methocarbam 2-0 Yes [id number] 500mg Take 1 [facility] 500 mg 8-11 tablet by [facility] tablet 00:00: mouth (four) Medical times [facility] daily as needed for Pain (scale 7-10). methocarbam 2-0 Yes [id number] 500mg Take 1 [facility] 500 mg 8-11 tablet by [facility] tablet 00:00: mouth (four) Medical times Branch daily as needed for Pain (scale 7-10). methocarbam 2-0 Yes [id number] 500mg Take 1 [facility] 500 mg 8-11 tablet by [facility] tablet 00:00: mouth (four) Medical times Branch daily as needed for Pain (scale 7-10). methocarbam 2022-0 Yes [id number] 500mg Take 1 [facility] 500 mg 8-11 tablet by [facility] tablet 00:00: mouth (four) Medical times [facility] daily as needed for Pain (scale 7-10). methocarbam 2022-0 Yes [id number] 500mg Take 1 [facility] 500 mg 8-11 tablet by [facility] tablet 00:00: mouth (four) Medical times Branch daily as needed for Pain (scale 7-10). methocarbam 2022-0 Yes [id number] 500mg Take 1 [facility] 500 mg 8-11 tablet by [facility] tablet 00:00: mouth (four) Medical times Branch daily as needed for Pain (scale 7-10). methocarbam 2021-0 Yes [id number] 500mg Take 1 [facility] 500 mg 8-11 tablet by [facility] tablet 00:00: mouth (four) Medical times [facility] daily as needed for Pain (scale 7-10). methocarbam 2021-0 Yes [id number] 500mg Take 1 [facility] 500 mg 8-11 tablet by [facility] tablet 00:00: mouth (four) Medical times [facility] daily as needed for Pain (scale 7-10). methocarbam 2021-0 Yes [id number] 500mg Take 1 [facility] 500 mg 8-11 tablet by [facility] tablet 00:00: mouth (four) Medical times [facility] daily as needed for Pain (scale 7-10). methocarbam 2021-0 Yes [id number] 500mg Take 1 [facility] 500 mg 8-11 tablet by [facility] tablet 00:00: mouth (four) Medical times [facility] daily as needed for Pain (scale 7-10). methocarbam 2021-0 Yes [id number] 500mg Take 1 [facility] 500 mg 8-11 tablet by [facility] tablet 00:00: mouth (four) Medical times [facility] daily as needed for Pain (scale 7-10). methocarbam 2021-0 Yes [id number] 500mg Take 1 [facility] 500 mg 8-11 tablet by [facility] tablet 00:00: mouth (four) Medical times Branch daily as needed for Pain (scale 7-10). methocarbam 2021-0 Yes [id number] 500mg Take 1 [facility] 500 mg 8-11 tablet by [facility] tablet 00:00: mouth (four) Medical times Branch daily as needed for Pain (scale 7-10). LOSARTAN 50 2021-0 Yes [id number] Take 1 [facility] mg tablet 7-20 tablet by [facility] o f 00:00: mouth 00 twice Medical daily Branch DILTIAZEM 2021-0 Yes [id number] Take 1 [facility] 120 mg 24 7-20 capsule by [facility] capsule 00:00: mouth twice Medical daily Branch LOSARTAN 50 2021-0 Yes [id number] Take 1 [facility] mg tablet 7-20 tablet by [facility] o f 00:00: mouth twice Medical daily Branch DILTIAZEM 2021-0 Yes [id number] Take 1 [facility] [place] 120 mg 24 7-20 capsule by [facility] hr capsule 00:00: mouth twice Medical daily Branch LOSARTAN 50 2021-0 Yes [id number] Take 1 [facility] mg tablet 7-20 tablet by [facility] o f 00:00: mouth twice Medical daily Branch DILTIAZEM 2021-0 Yes [id number] Take 1 [facility] [place] 120 mg 24 7-20 capsule by [facility] hr capsule 00:00: mouth twice Medical daily Branch LOSARTAN 50 2021-0 Yes [id number] Take 1 [facility] mg tablet 7-20 tablet by [facility] o f 00:00: mouth twice Medical daily Branch DILTIAZEM 2021-0 Yes [id number] Take 1 [facility] [place] 120 mg 24 7-20 capsule by [facility] hr capsule 00:00: mouth twice Medical daily Branch LOSARTAN 50 2021-0 Yes [id number] Take 1 [facility] mg tablet 7-20 tablet by [facility] o f 00:00: mouth twice Medical daily Branch DILTIAZEM 2021-0 Yes [id number] Take 1 [facility] [place] 120 mg 24 7-20 capsule by [facility] hr capsule 00:00: mouth twice Medical daily Branch LOSARTAN 50 2021-0 Yes [id number] Take 1 [facility] mg tablet 7-20 tablet by [facility] o f 00:00: twice Medical daily Branch DILTIAZEM 2021-0 Yes [id number] Take 1 [facility] [place] 120 mg 24 7-20 capsule by [facility] hr capsule 00:00: mouth twice Medical daily Branch LOSARTAN 50 2021-0 Yes [id number] Take 1 [facility] mg tablet 7-20 tablet by [facility] o f 00:00: mouth twice Medical daily Branch DILTIAZEM 2-0 Yes [id number] Take 1 [facility] [place] 120 mg 24 7-20 capsule by [facility] hr capsule 00:00: mouth twice Medical daily Branch LOSARTAN 50 2-0 Yes [id number] Take 1 [facility] mg tablet 7-20 tablet by [facility] o f 00:00: mouth twice Medical daily Branch DILTIAZEM 2021-0 Yes [id number] Take 1 [facility] [place] 120 mg 24 7-20 capsule by [facility] hr capsule 00:00: mouth twice Medical daily Branch LOSARTAN 50 2021-0 Yes [id number] Take 1 [facility] mg tablet 7-20 tablet by [facility] o f 00:00: mouth twice Medical daily Branch DILTIAZEM 2021-0 Yes [id number] Take 1 [facility] [place] 120 mg 24 7-20 capsule by [facility] hr capsule 00:00: mouth twice Medical daily Branch LOSARTAN 50 2021-0 Yes [id number] Take 1 [facility] mg tablet 7-20 tablet by [facility] o f 00:00: mouth twice Medical daily Branch DILTIAZEM 2021-0 Yes [id number] Take 1 [facility] [place] 120 mg 24 7-20 capsule by [facility] hr capsule 00:00: mouth twice Medical daily Branch LOSARTAN 50 2021-0 Yes [id number] Take 1 [facility] mg tablet 7-20 tablet by [facility] o f 00:00: mouth twice Medical daily Branch DILTIAZEM 2021-0 Yes [id number] Take 1 [facility] 120 mg 24 7-20 capsule by [facility] hr capsule 00:00: mouth twice Medical daily Branch LOSARTAN 50 2021-0 Yes [id number] Take 1 [facility] mg tablet 7-20 tablet by [facility] o f 00:00: mouth twice Medical daily Branch DILTIAZEM 2021-0 Yes [id number] Take 1 [facility] [place] 120 mg 24 7-20 capsule by [facility] hr capsule 00:00: twice Medical daily Branch LOSARTAN 50 2021-0 Yes [id number] Take 1 [facility] mg tablet 7-20 tablet by [facility] o f 00:00: mouth twice Medical daily Branch DILTIAZEM 2021-0 Yes [id number] Take 1 [facility] [place] 120 mg 24 7-20 capsule by [facility] hr capsule 00:00: mouth twice Medical daily Branch LOSARTAN 50 2021-0 Yes [id number] Take 1 [facility] mg tablet 7-20 tablet by [facility] o f 00:00: mouth twice Medical daily Branch DILTIAZEM 2021-0 Yes [id number] Take 1 [facility] [place] 120 mg 24 7-20 capsule by [facility] capsule 00:00: mouth [place] 00 twice Medical daily Branch LOSARTAN 50 2021-0 Yes [id number] Take 1 [facility] mg tablet 7-20 tablet by [facility] o f 00:00: mouth twice Medical daily Branch DILTIAZEM 2021-0 Yes [id number] Take 1 [facility] [place] 120 mg 24 7-20 capsule by [facility] hr capsule 00:00: mouth twice Medical daily Branch LOSARTAN 50 2021-0 Yes [id number] Take 1 [facility] mg tablet 7-20 tablet by [facility] o f 00:00: mouth twice Medical daily Branch DILTIAZEM 2021-0 Yes [id number] Take 1 [facility] [place] 120 mg 24 7-20 capsule by [facility] hr capsule 00:00: mouth twice Medical daily Branch LOSARTAN 50 2021-0 Yes [id number] Take 1 [facility] mg tablet 7-20 tablet by [facility] o f 00:00: mouth twice Medical daily Branch DILTIAZEM 2021-0 Yes [id number] Take 1 [facility] [place] 120 mg 24 7-20 capsule by [facility] hr capsule 00:00: mouth twice Medical daily Branch LOSARTAN 50 2021-0 Yes [id number] Take 1 [facility] mg tablet 7-20 tablet by [facility] o f 00:00: mouth twice Medical daily Branch DILTIAZEM 2021-0 Yes [id number] Take 1 [facility] [place] 120 mg 24 7-20 capsule by [facility] capsule 00:00: mouth twice Medical daily Branch LOSARTAN 50 2021-0 Yes [id number] Take 1 [facility] mg tablet 7-20 tablet by [facility] o f 00:00: mouth twice Medical daily Branch DILTIAZEM 2021-0 Yes [id number] Take 1 [facility] [place] 120 mg 24 7-20 capsule by [facility] capsule 00:00: mouth twice Medical daily Branch LOSARTAN 50 2021-0 Yes [id number] Take 1 [facility] mg tablet 7-20 tablet by [facility] o f 00:00: mouth twice Medical daily Branch DILTIAZEM 2021-0 Yes [id number] Take 1 [facility] [place] 120 mg 24 7-20 capsule by [facility] capsule 00:00: mouth twice Medical daily Branch LOSARTAN 50 2021-0 Yes [id number] Take 1 [facility] mg tablet 7-20 tablet by [facility] o f 00:00: mouth twice Medical daily Branch DILTIAZEM 2021-0 Yes [id number] Take 1 [facility] [place] 120 mg 24 7-20 capsule by [facility] hr capsule 00:00: mouth twice Medical daily Branch LOSARTAN 50 2021-0 Yes [id number] Take 1 [facility] mg tablet 7-20 tablet by [facility] o f 00:00: mouth twice Medical daily Branch DILTIAZEM 2021-0 Yes [id number] Take 1 [facility] [place] 120 mg 24 7-20 capsule by [facility] hr capsule 00:00: mouth twice Medical daily Branch LOSARTAN 50 2021-0 Yes [id number] Take 1 [facility] mg tablet 7-20 tablet by [facility] o f 00:00: mouth twice Medical daily Branch DILTIAZEM 2021-0 Yes [id number] Take 1 [facility] [place] 120 mg 24 7-20 capsule by [facility] capsule 00:00: mouth twice Medical daily Branch LOSARTAN 50 2021-0 Yes [id number] Take 1 [facility] mg tablet 7-20 tablet by [facility] o f 00:00: mouth twice Medical daily Branch DILTIAZEM 2021-0 Yes [id number] Take 1 [facility] [place] 120 mg 24 7-20 capsule by [facility] hr capsule 00:00: mouth twice Medical daily Branch LOSARTAN 50 2021-0 Yes [id number] Take 1 [facility] mg tablet 7-20 tablet by [facility] o f 00:00: mouth twice Medical daily Branch DILTIAZEM 2021-0 Yes [id number] Take 1 [facility] [place] 120 mg 24 7-20 capsule by [facility] hr capsule 00:00: mouth twice Medical daily Branch LOSARTAN 50 2021-0 Yes [id number] Take 1 [facility] mg tablet 7-20 tablet by [facility] o f 00:00: mouth twice Medical daily Branch DILTIAZEM 2021-0 Yes [id number] Take 1 [facility] [place] 120 mg 24 7-20 capsule by [facility] capsule 00:00: mouth twice Medical daily Branch LOSARTAN 50 2021-0 Yes [id number] Take 1 [facility] mg tablet 7-20 tablet by [facility] o f 00:00: mouth twice Medical daily Branch DILTIAZEM 2021-0 Yes [id number] Take 1 [facility] [place] 120 mg 24 7-20 capsule by [facility] hr capsule 00:00: mouth twice Medical daily Branch LOSARTAN 50 2021-0 Yes [id number] Take 1 [facility] mg tablet 7-20 tablet by [facility] o f 00:00: mouth 00 twice Medical daily Branch DILTIAZEM 2021-0 Yes [id number] Take 1 [facility] [place] 120 mg 24 7-20 capsule by [facility] hr capsule 00:00: mouth 00 twice Medical daily Branch LOSARTAN 50 2021-0 Yes [id number] Take 1 [facility] mg tablet 7-20 tablet by [facility] o f 00:00: mouth twice Medical daily Branch DILTIAZEM 2021-0 Yes [id number] Take 1 [facility] [place] 120 mg 24 7-20 capsule by [facility] hr capsule 00:00: mouth 00 twice Medical daily Branch LOSARTAN 50 2021-0 Yes [id number] Take 1 [facility] mg tablet 7-20 tablet by [facility] o f 00:00: mouth twice Medical daily Branch DILTIAZEM 2021-0 Yes [id number] Take 1 [facility] 120 mg 24 7-20 capsule by [facility] capsule 00:00: mouth twice Medical daily Branch LOSARTAN 50 2021-0 Yes [id number] Take 1 [facility] mg tablet 7-20 tablet by [facility] o f 00:00: mouth 00 twice Medical daily Branch DILTIAZEM 2021-0 Yes [id number] Take 1 [facility] 120 mg 24 7-20 capsule by [facility] capsule 00:00: mouth 00 twice Medical daily Branch LOSARTAN 50 2021-0 Yes [id number] Take 1 [facility] mg tablet 7-20 tablet by [facility] o f 00:00: mouth 00 twice Medical daily Branch DILTIAZEM 2021-0 Yes [id number] Take 1 [facility] 120 mg 24 7-20 capsule by [facility] hr capsule 00:00: mouth 00 twice Medical daily Branch LOSARTAN 50 2-0 2021- No [id number] Take 1 [facility] mg tablet 7-20 10-13 tablet by [facility] of 00:00: 00:00 mouth [place] 00 :00 twice Medical daily Branch DILTIAZEM 2-0 2021- No [id number] Take 1 [facility] 120 mg 24 7-20 10-13 capsule by [facility] hr capsule 00:00: 00:00 mouth [place] 00 :00 twice Medical daily Branch methocarbam 2-0 Yes [id number] 500mg Take 1 [facility] oL 500 mg 7-02 tablet by [facility] o f tablet 00:00: mouth 4 [place] 00 (four) Medical times Branch daily. methocarbam 2-0 Yes [id number] 500mg Take 1 [facility] oL 500 mg 7-02 tablet by [facility] o f tablet 00:00: mouth 4 [place] 00 (four) Medical times Branch daily. methocarbam 2-0 Yes [id number] 500mg Take 1 [facility] oL 500 mg 7-02 tablet by [facility] o f tablet 00:00: mouth 4 00 (four) Medical times Branch daily. methocarbam 2-0 Yes [id number] 500mg Take 1 [facility] oL 500 mg 7-02 tablet by [facility] o f tablet 00:00: mouth 4 00 (four) Medical times Branch daily. methocarbam 2-0 Yes [id number] 500mg Take 1 [facility] oL 500 mg 7-02 tablet by [facility] o f tablet 00:00: mouth 4 00 (four) Medical times Branch daily. methocarbam 2021-0 2022- No [id number] 500mg Take 1 [facility] oL 500 mg 7-02 08-11 tablet by [facility] tablet 00:00: 00:00 mouth 4 [place] 00 :00 (four) Medical times Branch daily. SUMATRIPTAN 2021-0 Yes [id number] TAKE 1 [facility] 50 mg 6-17 TABLET BY [facility] tablet 00:00: MOUTH [place] 00 NEEDED FOR Medical MIGRAINE Branch HEADACHE (MAY REPEAT IN TWO HOURS) SUMATRIPTAN 2021-0 Yes [id number] TAKE 1 [facility] 50 mg 6-17 TABLET BY [facility] tablet 00:00: MOUTH [place] 00 NEEDED FOR Medical MIGRAINE Branch HEADACHE (MAY REPEAT IN TWO HOURS) SUMATRIPTAN 2-0 Yes [id number] TAKE 1 [facility] 50 mg 6-17 TABLET BY [facility] of tablet 00:00: MOUTH [place] 00 NEEDED FOR Medical MIGRAINE Branch HEADACHE (MAY REPEAT IN TWO HOURS) SUMATRIPTAN 2-0 Yes [id number] TAKE 1 [facility] 50 mg 6-17 TABLET BY [facility] tablet 00:00: MOUTH [place] 00 NEEDED FOR Medical MIGRAINE Branch HEADACHE (MAY REPEAT IN TWO HOURS) SUMATRIPTAN 2-0 Yes [id number] TAKE 1 [facility] 50 mg 6-17 TABLET BY [facility] tablet 00:00: MOUTH [place] 00 NEEDED FOR Medical MIGRAINE Branch HEADACHE (MAY REPEAT IN TWO HOURS) SUMATRIPTAN 2022-0 Yes [id number] TAKE 1 [facility] 50 mg 6-17 TABLET BY [facility] tablet 00:00: MOUTH [place] 00 NEEDED FOR Medical MIGRAINE Branch HEADACHE (MAY REPEAT IN TWO HOURS) SUMATRIPTAN 2022-0 Yes [id number] TAKE 1 [facility] 50 mg 6-17 TABLET BY [facility] tablet 00:00: MOUTH [place] 00 NEEDED FOR Medical MIGRAINE Branch HEADACHE (MAY REPEAT IN TWO HOURS) SUMATRIPTAN 2022-0 Yes [id number] TAKE 1 [facility] 50 mg 6-17 TABLET BY [facility] tablet 00:00: MOUTH [place] 00 NEEDED FOR Medical MIGRAINE Branch HEADACHE (MAY REPEAT IN TWO HOURS) SUMATRIPTAN 2022-0 Yes [id number] TAKE 1 [facility] 50 mg 6-17 TABLET BY [facility] tablet 00:00: MOUTH [place] 00 NEEDED FOR Medical MIGRAINE Branch HEADACHE (MAY REPEAT IN TWO HOURS) SUMATRIPTAN 2022-0 Yes [id number] TAKE 1 [facility] 50 mg 6-17 TABLET BY [facility] tablet 00:00: MOUTH [place] 00 NEEDED FOR Medical MIGRAINE Branch HEADACHE (MAY REPEAT IN TWO HOURS) SUMATRIPTAN 2022-0 Yes [id number] TAKE 1 [facility] 50 mg 6-17 TABLET BY [facility] tablet 00:00: MOUTH [place] 00 NEEDED FOR Medical MIGRAINE Branch HEADACHE (MAY REPEAT IN TWO HOURS) SUMATRIPTAN 2022-0 Yes [id number] TAKE 1 [facility] 50 mg 6-17 TABLET BY [facility] tablet 00:00: MOUTH [place] 00 NEEDED FOR Medical MIGRAINE Branch HEADACHE (MAY REPEAT IN TWO HOURS) SUMATRIPTAN 2022-0 Yes [id number] TAKE 1 [facility] 50 mg 6-17 TABLET BY [facility] tablet 00:00: MOUTH [place] 00 NEEDED FOR Medical MIGRAINE Branch HEADACHE (MAY REPEAT IN TWO HOURS) SUMATRIPTAN 2022-0 Yes [id number] TAKE 1 [facility] 50 mg 6-17 TABLET BY [facility] tablet 00:00: MOUTH [place] 00 NEEDED FOR Medical MIGRAINE Branch HEADACHE (MAY REPEAT IN TWO HOURS) SUMATRIPTAN 2022-0 Yes [id number] TAKE 1 [facility] 50 mg 6-17 TABLET BY [facility] tablet 00:00: MOUTH [place] 00 NEEDED FOR Medical MIGRAINE Branch HEADACHE (MAY REPEAT IN TWO HOURS) SUMATRIPTAN 2022-0 Yes [id number] TAKE 1 [facility] 50 mg 6-17 TABLET BY [facility] tablet 00:00: MOUTH [place] 00 NEEDED FOR Medical MIGRAINE Branch HEADACHE (MAY REPEAT IN TWO HOURS) SUMATRIPTAN 2021-0 Yes [id number] TAKE 1 [facility] 50 mg 6-17 TABLET BY [facility] tablet 00:00: MOUTH [place] 00 NEEDED FOR Medical MIGRAINE Branch HEADACHE (MAY REPEAT IN TWO HOURS) SUMATRIPTAN 2021-0 2- No [id number] TAKE 1 [facility] 50 mg 6-17 09-06 TABLET BY [facility] tablet 00:00: 00:00 MOUTH [place] 00 :00 NEEDED FOR Medical MIGRAINE Branch HEADACHE (MAY REPEAT IN TWO HOURS) SUMATRIPTAN 2021-0 2021- No [id number] TAKE 1 [facility] 50 mg 6-17 09-06 TABLET BY [facility] tablet 00:00: 00:00 MOUTH [place] 00 :00 NEEDED FOR Medical MIGRAINE Branch HEADACHE (MAY REPEAT IN TWO HOURS) fexofenadin 2021-0 Yes [id number] 180mg Take 1 [facility] e (LUIS 6-13 tablet by [facility] of ALLERGY) 00:00: mouth [place] 180 mg 00 daily. Medical tablet Branch fexofenadin 2021-0 Yes [id number] 180mg Take 1 [facility] e (LUIS 6-13 tablet by [facility] of ALLERGY) 00:00: mouth [place] 180 mg 00 daily. Medical tablet Branch fexofenadin 2021-0 Yes [id number] 180mg Take 1 [facility] e (LUIS 6-13 tablet by [facility] of ALLERGY) 00:00: mouth [place] 180 mg 00 daily. Medical tablet Branch fexofenadin 2021-0 Yes [id number] 180mg Take 1 [facility] e (LUIS 6-13 tablet by [facility] of ALLERGY) 00:00: mouth [place] 180 mg 00 daily. Medical tablet Branch fexofenadin 2021-0 Yes [id number] 180mg Take 1 [facility] e (LUIS 6-13 tablet by [facility] of ALLERGY) 00:00: mouth [place] 180 mg 00 daily. Medical tablet Branch fexofenadin 2021-0 Yes [id number] 180mg Take 1 [facility] e (LUIS 6-13 tablet by [facility] of ALLERGY) 00:00: mouth [place] 180 mg 00 daily. Medical tablet Branch fexofenadin 2021-0 Yes [id number] 180mg Take 1 [facility] e (LUIS 6-13 tablet by [facility] of ALLERGY) 00:00: mouth [place] 180 mg 00 daily. Medical tablet Branch fexofenadin 0 Yes [id number] 180mg Take 1 [facility] e (LUIS 6-13 tablet by [facility] of ALLERGY) 00:00: mouth [place] 180 mg 00 daily. Medical tablet Branch fexofenadin Yes [id number] 180mg Take 1 [facility] e (LUIS 6-13 tablet by [facility] of ALLERGY) 00:00: mouth [place] 180 mg 00 daily. Medical tablet Branch fexofenadin 0 Yes [id number] 180mg Take 1 [facility] e (LUIS 6-13 tablet by [facility] of ALLERGY) 00:00: mouth [place] 180 mg 00 daily. Medical tablet Branch fexofenadin Yes [id number] 180mg Take 1 [facility] e (LUIS 6-13 tablet by [facility] of ALLERGY) 00:00: mouth [place] 180 mg 00 daily. Medical tablet Branch fexofenadin Yes [id number] 180mg Take 1 [facility] e (LUIS 6-13 tablet by [facility] of ALLERGY) 00:00: mouth [place] 180 mg 00 daily. Medical tablet Branch fexofenadin Yes [id number] 180mg Take 1 [facility] e (LUIS 6-13 tablet by [facility] of ALLERGY) 00:00: mouth [place] 180 mg 00 daily. Medical tablet Branch fexofenadin Yes [id number] 180mg Take 1 [facility] e (LUIS 6-13 tablet by [facility] of ALLERGY) 00:00: mouth [place] 180 mg 00 daily. Medical tablet Branch fexofenadin Yes [id number] 180mg Take 1 [facility] e (LUIS 6-13 tablet by [facility] of ALLERGY) 00:00: mouth [place] 180 mg 00 daily. Medical tablet Branch fexofenadin Yes [id number] 180mg Take 1 [facility] e (LUIS 6-13 tablet by [facility] of ALLERGY) 00:00: mouth [place] 180 mg 00 daily. Medical tablet Branch fexofenadin Yes [id number] 180mg Take 1 [facility] e (LUIS 6-13 tablet by [facility] of ALLERGY) 00:00: mouth [place] 180 mg 00 daily. Medical tablet Branch fexofenadin Yes [id number] 180mg Take 1 [facility] e (LUIS 6-13 tablet by [facility] of ALLERGY) 00:00: mouth [place] 180 mg 00 daily. Medical tablet Branch fexofenadin 2021-0 Yes [id number] 180mg Take 1 [facility] e (LUIS 6-13 tablet by [facility] of ALLERGY) 00:00: mouth [place] 180 mg 00 daily. Medical tablet Branch fexofenadin 0 Yes [id number] 180mg Take 1 [facility] e (LUIS 6-13 tablet by ity of ALLERGY) 00:00: mouth [place] 180 mg 00 daily. Medical tablet Branch fexofenadin 0 Yes [id number] 180mg Take 1 [facility] (LUIS 6-13 tablet by ity of ALLERGY) 00:00: mouth [place] 180 mg 00 daily. Medical tablet Branch fexofenadin Yes [id number] 180mg Take 1 [facility] (LUIS 6-13 tablet by ity of ALLERGY) 00:00: mouth [place] 180 mg 00 daily. Medical tablet Branch fexofenadin Yes [id number] 180mg Take 1 [facility] (LUIS 6-13 tablet by ity of ALLERGY) 00:00: mouth [place] 180 mg 00 daily. Medical tablet Branch fexofenadin Yes [id number] 180mg Take 1 [facility] (LUIS 6-13 tablet by ity of ALLERGY) 00:00: mouth [place] 180 mg 00 daily. Medical tablet Branch fexofenadin Yes [id number] 180mg Take 1 [facility] e (LUIS 6-13 tablet by ity of ALLERGY) 00:00: mouth [place] 180 mg 00 daily. Medical tablet Branch fexofenadin 0 Yes [id number] 180mg Take 1 [facility] e (LUIS 6-13 tablet by ity of ALLERGY) 00:00: mouth [place] 180 mg 00 daily. Medical tablet Branch fexofenadin 0 Yes [id number] 180mg Take 1 [facility] (LUIS 6-13 tablet by ity of ALLERGY) 00:00: mouth [place] 180 mg 00 daily. Medical tablet Branch fexofenadin 0 Yes [id number] 180mg Take 1 [facility] (LUIS 6-13 tablet by ity of ALLERGY) 00:00: mouth [place] 180 mg 00 daily. Medical tablet Branch fexofenadin 0 Yes [id number] 180mg Take 1 [facility] (LUIS 6-13 tablet by ity of ALLERGY) 00:00: mouth [place] 180 mg 00 daily. Medical tablet Branch fexofenadin 0 Yes [id number] 180mg Take 1 [facility] (LUIS 6-13 tablet by ity of ALLERGY) 00:00: mouth [place] 180 mg 00 daily. Medical tablet Branch fexofenadin 0 Yes [id number] 180mg Take 1 [facility] (LUIS 6-13 tablet by ity of ALLERGY) 00:00: mouth [place] 180 mg 00 daily. Medical tablet Branch fexofenadin 0 Yes [id number] 180mg Take 1 [facility] (LUIS 6-13 tablet by ity of ALLERGY) 00:00: mouth [place] 180 mg 00 daily. Medical tablet Branch fexofenadin 0 Yes [id number] 180mg Take 1 [facility] (LUIS 6-13 tablet by ity of ALLERGY) 00:00: mouth [place] 180 mg 00 daily. Medical tablet Branch fexofenadin Yes [id number] 180mg Take 1 [facility] (LUIS 6-13 tablet by ity of ALLERGY) 00:00: mouth [place] 180 mg 00 daily. Medical tablet Branch fexofenadin Yes [id number] 180mg Take 1 [facility] (LUIS 6-13 tablet by ity of ALLERGY) 00:00: mouth [place] 180 mg 00 daily. Medical tablet Branch fexofenadin Yes [id number] 180mg Take 1 [facility] (LUIS 6-13 tablet by ity of ALLERGY) 00:00: mouth [place] 180 mg 00 daily. Medical tablet Branch fexofenadin 2021-0 Yes [id number] 180mg Take 1 [facility] (LUIS 6-13 tablet by ity of ALLERGY) 00:00: mouth [place] 180 mg 00 daily. Medical tablet Branch fexofenadin 0 Yes [id number] 180mg Take 1 [facility] (LUIS 6-13 tablet by ity of ALLERGY) 00:00: mouth [place] 180 mg 00 daily. Medical tablet Branch fexofenadin 0 Yes [id number] 180mg Take 1 [facility] (LUIS 6-13 tablet by ity of ALLERGY) 00:00: mouth [place] 180 mg 00 daily. Medical tablet Branch fexofenadin 0 Yes [id number] 180mg Take 1 [facility] (LUIS 6-13 tablet by ity of ALLERGY) 00:00: mouth [place] 180 mg 00 daily. Medical tablet Branch fexofenadin Yes [id number] 180mg Take 1 [facility] (LUIS 6-13 tablet by ity of ALLERGY) 00:00: mouth [place] 180 mg 00 daily. Medical tablet Branch fexofenadin Yes [id number] 180mg Take 1 [facility] (LUIS 6-13 tablet by ity of ALLERGY) 00:00: mouth [place] 180 mg 00 daily. Medical tablet Branch fexofenadin Yes [id number] 180mg Take 1 [facility] (LUIS 6-13 tablet by ity of ALLERGY) 00:00: mouth [place] 180 mg 00 daily. Medical tablet Branch fexofenadin Yes [id number] 180mg Take 1 [facility] (LUIS 6-13 tablet by ity of ALLERGY) 00:00: mouth [place] 180 mg 00 daily. Medical tablet Branch fexofenadin Yes [id number] 180mg Take 1 [facility] (LUIS 6-13 tablet by ity of ALLERGY) 00:00: mouth [place] 180 mg 00 daily. Medical tablet Branch fexofenadin Yes [id number] 180mg Take 1 [facility] (LUIS 6-13 tablet by ity of ALLERGY) 00:00: mouth [place] 180 mg 00 daily. Medical tablet Branch fexofenadin Yes [id number] 180mg Take 1 [facility] (LUIS 6-13 tablet by ity of ALLERGY) 00:00: mouth [place] 180 mg 00 daily. Medical tablet Branch fexofenadin Yes [id number] 180mg Take 1 [facility] (LUIS 6-13 tablet by ity of ALLERGY) 00:00: mouth [place] 180 mg 00 daily. Medical tablet Branch fexofenadin Yes [id number] 180mg Take 1 [facility] (LUIS 6-13 tablet by ity of ALLERGY) 00:00: mouth [place] 180 mg 00 daily. Medical tablet Branch fexofenadin Yes [id number] 180mg Take 1 [facility] (LUIS 6-13 tablet by ity of ALLERGY) 00:00: mouth [place] 180 mg 00 daily. Medical tablet Branch fexofenadin Yes [id number] 180mg Take 1 [facility] (LUIS 6-13 tablet by ity of ALLERGY) 00:00: mouth [place] 180 mg 00 daily. Medical tablet Branch fexofenadin Yes [id number] 180mg Take 1 [facility] (LUIS 6-13 tablet by ity of ALLERGY) 00:00: mouth [place] 180 mg 00 daily. Medical tablet Branch fexofenadin Yes [id number] 180mg Take 1 [facility] (LUIS 6-13 tablet by ity of ALLERGY) 00:00: mouth [place] 180 mg 00 daily. Medical tablet Branch fexofenadin Yes [id number] 180mg Take 1 [facility] (LUIS 6-13 tablet by ity of ALLERGY) 00:00: mouth [place] 180 mg 00 daily. Medical tablet Branch fexofenadin Yes [id number] 180mg Take 1 [facility] (LUIS 6-13 tablet by ity of ALLERGY) 00:00: mouth [place] 180 mg 00 daily. Medical tablet Branch fexofenadin Yes [id number] 180mg Take 1 [facility] (LUIS 6-13 tablet by ity of ALLERGY) 00:00: mouth [place] 180 mg 00 daily. Medical tablet Branch fexofenadin Yes [id number] 180mg Take 1 [facility] (LUIS 6-13 tablet by ity of ALLERGY) 00:00: mouth [place] 180 mg 00 daily. Medical tablet Branch fexofenadin Yes [id number] 180mg Take 1 [facility] (LUIS 6-13 tablet by ity of ALLERGY) 00:00: mouth [place] 180 mg 00 daily. Medical tablet Branch fexofenadin Yes [id number] 180mg Take 1 [facility] (LUIS 6-13 tablet by ity of ALLERGY) 00:00: mouth [place] 180 mg 00 daily. Medical tablet Branch fexofenadin 0 Yes [id number] 180mg Take 1 [facility] (LUIS 6-13 tablet by ity of ALLERGY) 00:00: mouth [place] 180 mg 00 daily. Medical tablet Branch fexofenadin Yes [id number] 180mg Take 1 [facility] (LUIS 6-13 tablet by ity of ALLERGY) 00:00: mouth [place] 180 mg 00 daily. Medical tablet Branch fexofenadin Yes [id number] 180mg Take 1 [facility] (LIUS 6-13 tablet by ity of ALLERGY) 00:00: mouth [place] 180 mg 00 daily. Medical tablet Branch fexofenadin Yes [id number] 180mg Take 1 [facility] (LUIS 6-13 tablet by ity of ALLERGY) 00:00: mouth [place] 180 mg 00 daily. Medical tablet Branch fexofenadin Yes [id number] 180mg Take 1 [facility] (LUIS 6-13 tablet by ity of ALLERGY) 00:00: mouth [place] 180 mg 00 daily. Medical tablet Branch rosuvastati Yes [id number] 10mg Take 1 [facility] n 10 mg 6-08 tablet by ity of tablet 00:00: mouth at [place] 00 bedtime. Medical Branch rosuvastati Yes [id number] 10mg Take 1 [facility] n 10 mg 6-08 tablet by ity of tablet 00:00: mouth at [place] 00 bedtime. Medical Branch rosuvastati Yes [id number] 10mg Take 1 [facility] n 10 mg 6-08 tablet by ity of tablet 00:00: mouth at [place] 00 bedtime. Medical Branch rosuvastati Yes [id number] 10mg Take 1 [facility] n 10 mg 6-08 tablet by ity of tablet 00:00: mouth at [place] 00 bedtime. Medical Branch rosuvastati Yes [id number] 10mg Take 1 [facility] n 10 mg 6-08 tablet by ity of tablet 00:00: mouth at [place] 00 bedtime. Medical Branch rosuvastati Yes [id number] 10mg Take 1 [facility] n 10 mg 6-08 tablet by ity of tablet 00:00: mouth at [place] 00 bedtime. Medical Branch rosuvastati Yes [id number] 10mg Take 1 [facility] n 10 mg 6-08 tablet by ity of tablet 00:00: mouth at [place] 00 bedtime. Medical Branch rosuvastati Yes [id number] 10mg Take 1 [facility] n 10 mg 6-08 tablet by ity of tablet 00:00: mouth at [place] 00 bedtime. Medical Branch rosuvastati Yes [id number] 10mg Take 1 [facility] n 10 mg 6-08 tablet by ity of tablet 00:00: mouth at [place] 00 bedtime. Medical Branch rosuvastati 2021- Yes [id number] 10mg Take 1 [facility] n 10 mg 6-08 tablet by ity of tablet 00:00: mouth at [place] bedtime. Medical Branch rosuvastati Yes [id number] 10mg Take 1 [facility] n 10 mg 6-08 tablet by ity of tablet 00:00: mouth at [place] bedtime. Medical Branch rosuvastati 2021-0 Yes [id number] 10mg Take 1 [facility] n 10 mg 6-08 tablet by ity of tablet 00:00: mouth at [place] bedtime. Medical Branch rosuvastati 2021- Yes [id number] 10mg Take 1 [facility] n 10 mg 6-08 tablet by ity of tablet 00:00: mouth at [place] bedtime. Medical Branch rosuvastati Yes [id number] 10mg Take 1 [facility] n 10 mg 6-08 tablet by ity of tablet 00:00: mouth at [place] bedtime. Medical Branch rosuvastati 2021- Yes [id number] 10mg Take 1 [facility] n 10 mg 6-08 tablet by ity of tablet 00:00: mouth at [place] bedtime. Medical Branch rosuvastati Yes [id number] 10mg Take 1 [facility] n 10 mg 6-08 tablet by ity of tablet 00:00: mouth at [place] bedtime. Medical Branch rosuvastati Yes [id number] 10mg Take 1 [facility] n 10 mg 6-08 tablet by ity of tablet 00:00: mouth at [place] bedtime. Medical Branch rosuvastati 2021-0 Yes [id number] 10mg Take 1 [facility] n 10 mg 6-08 tablet by ity of tablet 00:00: mouth at [place] bedtime. Medical Branch rosuvastati 2021-0 Yes [id number] 10mg Take 1 [facility] n 10 mg 6-08 tablet by ity of tablet 00:00: mouth at [place] bedtime. Medical Branch rosuvastati 2021-0 Yes [id number] 10mg Take 1 [facility] n 10 mg 6-08 tablet by ity of tablet 00:00: mouth at [place] bedtime. Medical Branch rosuvastati 2021-0 Yes [id number] 10mg Take 1 [facility] n 10 mg 6-08 tablet by ity of tablet 00:00: mouth at [place] [address] bedtime. Medical Branch rosuvastati 2021- Yes [id number] 10mg Take 1 [facility] n 10 mg 6-08 tablet by ity of tablet 00:00: mouth at [place] bedtime. Medical Branch rosuvastati 2021-0 Yes [id number] 10mg Take 1 [facility] n 10 mg 6-08 tablet by ity of tablet 00:00: mouth at [place] bedtime. Medical Branch rosuvastati 2021-0 Yes [id number] 10mg Take 1 [facility] n 10 mg 6-08 tablet by ity of tablet 00:00: mouth at [place] bedtime. Medical Branch rosuvastati 2021- Yes [id number] 10mg Take 1 [facility] n 10 mg 6-08 tablet by ity of tablet 00:00: mouth at [place] bedtime. Medical Branch rosuvastati Yes [id number] 10mg Take 1 [facility] n 10 mg 6-08 tablet by ity of tablet 00:00: mouth at [place] bedtime. Medical Branch rosuvastati 2021-0 Yes [id number] 10mg Take 1 [facility] n 10 mg 6-08 tablet by ity of tablet 00:00: mouth at [place] bedtime. Medical Branch rosuvastati Yes [id number] 10mg Take 1 [facility] n 10 mg 6-08 tablet by ity of tablet 00:00: mouth at [place] [address] bedtime. Medical Branch rosuvastati Yes [id number] 10mg Take 1 [facility] n 10 mg 6-08 tablet by ity of tablet 00:00: mouth at [place] [address] bedtime. Medical Branch rosuvastati 2021-0 Yes [id number] 10mg Take 1 [facility] n 10 mg 6-08 tablet by ity of tablet 00:00: mouth at [place] [address] bedtime. Medical Branch rosuvastati 2021-0 Yes [id number] 10mg Take 1 [facility] n 10 mg 6-08 tablet by ity of tablet 00:00: mouth at [place] [address] bedtime. Medical Branch rosuvastati 2021-0 Yes [id number] 10mg Take 1 [facility] n 10 mg 6-08 tablet by ity of tablet 00:00: mouth at [place] [address] bedtime. Medical Branch rosuvastati 2021-0 Yes [id number] 10mg Take 1 [facility] n 10 mg 6-08 tablet by ity of tablet 00:00: mouth at [place] [address] bedtime. Medical Branch rosuvastati 2021- Yes [id number] 10mg Take 1 [facility] n 10 mg 6-08 tablet by ity of tablet 00:00: mouth at [place] bedtime. Medical Branch rosuvastati 2021-0 Yes [id number] 10mg Take 1 [facility] n 10 mg 6-08 tablet by ity of tablet 00:00: mouth at [place] bedtime. Medical Branch rosuvastati 2021-0 Yes [id number] 10mg Take 1 [facility] n 10 mg 6-08 tablet by ity of tablet 00:00: mouth at [place] bedtime. Medical Branch rosuvastati 2021-0 Yes [id number] 10mg Take 1 [facility] n 10 mg 6-08 tablet by ity of tablet 00:00: mouth at [place] bedtime. Medical Branch rosuvastati Yes [id number] 10mg Take 1 [facility] n 10 mg 6-08 tablet by ity of tablet 00:00: mouth at [place] bedtime. Medical Branch rosuvastati 2021-0 Yes [id number] 10mg Take 1 [facility] n 10 mg 6-08 tablet by ity of tablet 00:00: mouth at [place] bedtime. Medical Branch rosuvastati Yes [id number] 10mg Take 1 [facility] n 10 mg 6-08 tablet by ity of tablet 00:00: mouth at [place] [address] bedtime. Medical Branch rosuvastati Yes [id number] 10mg Take 1 [facility] n 10 mg 6-08 tablet by ity of tablet 00:00: mouth at [place] [address] bedtime. Medical Branch rosuvastati 2021-0 Yes [id number] 10mg Take 1 [facility] n 10 mg 6-08 tablet by ity of tablet 00:00: mouth at [place] [address] bedtime. Medical Branch rosuvastati 2021-0 Yes [id number] 10mg Take 1 [facility] n 10 mg 6-08 tablet by ity of tablet 00:00: mouth at [place] bedtime. Medical Branch rosuvastati 2021-0 Yes [id number] 10mg Take 1 [facility] n 10 mg 6-08 tablet by ity of tablet 00:00: mouth at [place] [address] bedtime. Medical Branch rosuvastati 2021-0 Yes [id number] 10mg Take 1 [facility] n 10 mg 6-08 tablet by ity of tablet 00:00: mouth at [place] 00 bedtime. Medical Branch rosuvastati 2021- No [id number] 10mg Take 1 [facility] n 10 mg 03-03 10-13 tablet by ity of tablet 00:00: 00:00 mouth at [place] 00 :00 bedtime. Medical Branch water for 2021- No PRN, [facility] irrigation 03-02 Starting ity of irrigation 14:20: 15:50 on Tue [place] solution 00 :27 03/02/22 at Medica l 0920, Branch Until Tue03/02/22 at 1050, Routine, Intra-op simethicone 2021- No PRN, [facility] rs (GAS RELIEF 03-02 Starting ity of (SIMETHICON 14:20: 15:50 on Tue [place] as E)) 40 00 :03/02/22 at Medical mg/0.6 mL 0920, Branch drops Until Tue03/02/22 at 1050, Routine, Intra-op lactated 2021- No 1000mL at 42 [facility] rs ringers IV 03-02 06-07 mL/hr, ity of infusion 12:45: 12:59 1,000 mL, [place] as 1,000 mL 00 :00 IV Medical Infusion, Branch ONCE, 1 dose, On Tue03/02/22 at 0745, Routine, DSU Pre-op lactated 2021- No 1000mL at 42 [facility] rs ringers IV 03-02 06-07 mL/hr, ity of infusion 12:45: 12:59 1,000 mL, [place] as 1,000 mL 00 :00 IV Medical Infusion, Branch ONCE, 1 dose, On Tue03/02/22 at 0745, Routine, DSU Pre-op FOLIC ACID Yes Take by [facility] ers ORAL 03-02 mouth ity of 11:23: daily. [address] Branch MULTIVIT Yes [facility] &[facility]/F 03-02 mouth. ity of ERROUS FUM 11:23: [place] ([place] [address] Medical VITAMIN Branch ORAL) METHYLCELLU Yes [facility] s LOSE (FIBER 03-02 ity of THERAPY 11:23: [facility]) 09 Medical Branch DOCUSATE Yes Take by [facility] s SODIUM 6-07 mouth. ity of (COLACE [...] tablet CRANBERRY Yes Take by [facility] rs FRUIT 6-07 mouth ity of EXTRACT 11:23: daily. [place] (CRANBERRY Medical ORAL) Branch CALCIUM Yes Take by [facility] ORAL 6-07 mouth ity of 11:23: daily. [place] Medical Branch DOCOSAHEXAN Yes 1000mg Take 1,000 [facility] OIC 6-07 mg by ity of ACID/EPA 11:23: mouth [place] (FISH OIL 09 daily. Medical ORAL) Branch BIOTIN ORAL Yes Take by Uni vers 6-07 mouth. ity of 11:23: [place] [address] Medical Branch FOLIC ACID Yes Take by [facility] ers ORAL 6-07 mouth ity of 11:23: daily. [place] Medical Branch MULTIVIT Yes Take by [facility] s &MINERALS/F 6-07 mouth. ity of ERROUS FUM 11:23: [place] (MULTI 09 Medical VITAMIN Branch ORAL) METHYLCELLU Yes [facility] s LOSE (FIBER 6-07 ity of THERAPY 11:23: [place] MISC) 09 Medical Branch DOCUSATE Yes Take by [facility] s SODIUM 6-07 mouth. ity of (COLACE [...] 6-07 mouth ity of EXTRACT 11:23: daily. [place] (CRANBERRY Medical ORAL) Branch CALCIUM Yes Take by Univers ORAL 6-07 mouth ity of 11:23: daily. [place] Medical Branch DOCOSAHEXAN Yes 1000mg Take 1,000 [facility] OIC 6-07 mg by ity of ACID/EPA 11:23: mouth [place] (FISH OIL 09 daily. Medical ORAL) Branch BIOTIN ORAL Yes Take by Uni vers 6-07 mouth. ity of 11:23: [place] Medical Branch FOLIC ACID Yes Take by Univ ers ORAL 6-07 mouth ity of 11:23: daily. [place] Medical Branch MULTIVIT Yes Take by Univer s &MINERALS/F 6-07 mouth. ity of ERROUS FUM 11:23: [place] (MULTI 09 Medical VITAMIN Branch ORAL) METHYLCELLU Yes Univer s LOSE (FIBER 6-07 ity of THERAPY 11:23: [place] MISC) Medical Branch DOCUSATE Yes Take by Univer s SODIUM 6-07 mouth. ity of (COLACE 11:23: [place] ORAL) Medical Branch vitamin C Yes 1000mg Take 1,000 [facility] with derrell 6-07 mg by ity of hips 11:23: mouth [place] (VITAMIN C) 09 daily. Medica l 1,000 mg Branch tablet cholecalcif Yes 1000U Take 1,000 [facility] edmar, 6-07 Units by ity of vitamin D3, 11:23: mouth [place] (VITAMIN 09 daily. Medical D3) 1,000 Branch unit tablet CRANBERRY Yes [facility] FRUIT 6-07 mouth ity of EXTRACT 11:23: daily. [place] ([place] Medical ORAL) Branch CALCIUM Yes Take by Univers ORAL 6-07 mouth ity of 11:23: daily. [place] Medical Branch DOCOSAHEXAN Yes 1000mg Take 1,000 [facility] OIC 6-07 mg by ity of ACID/EPA 11:23: mouth [place] (FISH OIL 09 daily. Medical ORAL) Branch BIOTIN ORAL Yes Take by Uni vers 6-07 mouth. ity of 11:23: [place] [address] Medical Branch FOLIC ACID Yes Take by [facility] ers ORAL 6-07 mouth ity of 11:23: daily. [place] [address] Medical Branch MULTIVIT Yes Take by Univer s &MINERALS/F 6-07 mouth. ity of ERROUS FUM 11:23: [place] (MULTI 09 Medical VITAMIN Branch ORAL) METHYLCELLU Yes Univer s LOSE (FIBER 6-07 ity of THERAPY 11:23: [facility]) 09 Medical Branch DOCUSATE Yes Take [facility] SODIUM 6-07 mouth. ity of (COLACE 11:23: [place] ORAL) 09 Medical Branch vitamin C Yes 1000mg Take 1,000 [facility] with derrell 6-07 mg by ity of hips 11:23: mouth [place] (VITAMIN C) 09 daily. Medica l 1,000 mg Branch tablet cholecalcif Yes 1000U Take 1,000 [facility] edmar, 6-07 Units by ity of vitamin D3, 11:23: mouth [place] (VITAMIN 09 daily. Medical D3) 1,000 Branch unit tablet CRANBERRY Yes Take by [facility] rs FRUIT 6-07 mouth ity of EXTRACT 11:23: daily. [place] (CRANBERRY 09 Medical ORAL) Branch CALCIUM Yes Take by Univers ORAL 6-07 mouth ity of 11:23: daily. [place] Medical Branch DOCOSAHEXAN Yes 1000mg Take 1,000 [facility] OIC 6-07 mg by ity of ACID/EPA 11:23: mouth [place] (FISH OIL 09 daily. Medical ORAL) Branch BIOTIN ORAL Yes Take by Uni vers 6-07 mouth. ity of 11:23: [place] [address] Medical Branch FOLIC ACID Yes Take by [facility] ers ORAL 6-07 mouth ity of 11:23: daily. [place] [address] Medical Branch MULTIVIT Yes Take by [facility] &MINERALS/F 6-07 mouth. ity of ERROUS FUM 11:23: [place] (MULTI 09 Medical VITAMIN Branch ORAL) METHYLCELLU Yes Univer s LOSE (FIBER 6-07 ity of THERAPY 11:23: [place] MIS) 09 Medical Branch DOCUSATE Yes Take by [facility] s SODIUM 6-07 mouth. ity of (COLACE [...] 6-07 mouth ity of EXTRACT 11:23: daily. [place] (CRANBERRY 09 Medical ORAL) Branch CALCIUM Yes Take by Univers ORAL 6-07 mouth ity of 11:23: daily. [place] Medical Branch DOCOSAHEXAN Yes 1000mg Take 1,000 [facility] OIC 6-07 mg by ity of ACID/EPA 11:23: mouth [place] (FISH OIL 09 daily. Medical ORAL) Branch BIOTIN ORAL Yes Take by Uni vers 6-07 mouth. ity of 11:23: Medical Branch FOLIC ACID Yes Take by Univ ers ORAL 6-07 mouth ity of 11:23: daily. [place] Medical Branch MULTIVIT Yes Take by Univer s &MINERALS/F 6-07 mouth. ity of ERROUS FUM 11:23: [place] (MULTI 09 Medical VITAMIN Branch ORAL) METHYLCELLU Yes Univer s LOSE (FIBER 6-07 ity of THERAPY 11:23: [place] MISC) 09 Medical Branch DOCUSATE Yes Take [...] 6-07 mouth ity of EXTRACT 11:23: daily. [place] (CRANBERRY 09 Medical ORAL) Branch CALCIUM Yes [...] ORAL 6-07 mouth ity of 11:23: daily. [place] Medical Branch MULTIVIT Yes Take by Univer s &MINERALS/F 6-07 mouth. ity of ERROUS FUM 11:23: [place] (MULTI 09 Medical VITAMIN Branch ORAL) METHYLCELLU Yes [facility] (FIBER 6-07 ity of THERAPY 11:23: [place] MISC) 09 Medical Branch DOCUSATE Yes Take by [facility] SODIUM 6-07 mouth. ity of (COLACE [...] tablet CRANBERRY Yes Take by [facility] rs FRUIT 6-07 mouth ity of EXTRACT 11:23: daily. [place] (CRAN[place]Y Medical ORAL) Branch CALCIUM Yes Take by Univers ORAL 6-07 mouth ity of 11:23: daily. [place] Medical Branch DOCOSAHEXAN Yes 1000mg Take 1,000 [...] 6-07 mouth. ity of ERROUS FUM 11:23: [place] (MULTI 09 Medical VITAMIN Branch ORAL) METHYLCELLU Yes [facility] LOSE (FIBER 6-07 ity of THERAPY 11:23: [facility]) Medical Branch DOCUSATE Yes Take by [facility] SODIUM 6-07 mouth. ity of (COLACE 11:23: [place] ORAL) 09 Medical Branch vitamin C Yes 1000mg Take 1,000 Univers with derrell 6-07 mg by ity of hips 11:23: mouth [place] (VITAMIN C) 09 daily. Medica l 1,000 mg Branch tablet cholecalcif Yes 1000U Take 1,000 [facility] edmar, 6-07 Units by ity of vitamin D3, 11:23: mouth [place] (VITAMIN 09 daily. Medical D3) 1,000 Branch unit tablet CRANBERRY Yes Take by [facility] rs FRUIT 6-07 mouth ity of EXTRACT 11:23: daily. [place] (CRANBERRY 09 Medical ORAL) Branch CALCIUM Yes Take by Univers ORAL 6-07 mouth ity of 11:23: daily. [place] [address] Medical Branch DOCOSAHEXAN Yes 1000mg Take 1,000 [facility] OIC 6-07 mg by ity of ACID/EPA 11:23: mouth [place] (FISH OIL 09 daily. Medical ORAL) Branch BIOTIN ORAL Yes Take by Uni vers 6-07 mouth. ity of 11:23: [place] [address] Medical Branch FOLIC ACID Yes Take by [facility] ers ORAL 6-07 mouth ity of 11:23: daily. [place] [address] Medical Branch MULTIVIT Yes Take by [facility] &MINERALS/F 6-07 mouth. ity of ERROUS FUM 11:23: [place] (MULTI 09 Medical VITAMIN Branch ORAL) METHYLCELLU 0 Yes [facility] LOSE (FIBER 6-07 ity of THERAPY 11:23: [facility]) Medical Branch DOCUSATE 0 Yes Take by [facility] SODIUM 6-07 mouth. ity of (COLACE [...] unit tablet CRANBERRY 2021-0 Yes Take by [facility] FRUIT 6-07 mouth ity of EXTRACT 11:23: daily. [place] (CR[place] Medical ORAL) Branch CALCIUM 0 Yes Take by Univers ORAL 6-07 mouth ity of 11:23: daily. [place] Medical Branch DOCOSAHEXAN Yes 1000mg Take 1,000 Univers OIC 6-07 mg by ity of ACID/EPA 11:23: mouth [place] (FISH OIL 09 daily. Medical ORAL) Branch BIOTIN ORAL 0 Yes Take by Uni vers 6-07 mouth. ity of 11:23: [place] Medical Branch FOLIC ACID Yes Take by Univ ers ORAL 6-07 mouth ity of 11:23: daily. [place] [facility] Branch MULTIVIT Yes Take by [facility] &MINERALS/F 6-07 mouth. ity of ERROUS FUM 11:23: [place] (MULTI 09 Medical VITAMIN Branch ORAL) METHYLCELLU 0 Yes [facility] s LOSE (FIBER 6-07 ity of THERAPY 11:23: [place] MISC) 09 Medical Branch DOCUSATE Yes Take by [facility] SODIUM 6-07 mouth. ity of (COLACE 11:23: [place] ORAL) 09 Medical Branch vitamin C Yes 1000mg Take 1,000 Univers with derrell 6-07 mg by ity of hips 11:23: mouth [place] (VITAMIN C) 09 daily. Medica l 1,000 mg Branch tablet cholecalcif 2021-0 Yes 1000U Take 1,000 [facility] edmar, 6-07 Units by ity of vitamin D3, 11:23: mouth [place] (VITAMIN 09 daily. Medical D3) 1,000 Branch unit tablet CRANBERRY 2021-0 Yes Take by [facility] FRUIT 6-07 mouth ity of EXTRACT 11:23: daily. [place] (CRANBERRY Medical ORAL) Branch CALCIUM 0 Yes Take by Univers ORAL 6-07 mouth ity of 11:23: daily. [place] Medical Branch DOCOSAHEXAN 2022-0 Yes 1000mg Take 1,000 [facility] OIC 6-07 mg by ity of ACID/EPA 11:23: mouth [place] (FISH OIL 09 daily. Medical ORAL) Branch BIOTIN ORAL Yes Take by Uni vers 6-07 mouth. ity of 11:23: Medical Branch FOLIC ACID Yes Take by Univ ers ORAL 6-07 mouth ity of 11:23: daily. [place] Medical Branch MULTIVIT Yes Take by Univer s &MINERALS/F 6-07 mouth. ity of ERROUS FUM 11:23: [place] (MULTI 09 Medical VITAMIN Branch ORAL) METHYLCELLU Yes [facility] LO[facility] (FIBER 6-07 ity of THERAPY 11:23: [place] MISC) 09 Medical Branch DOCUSATE Yes Take by [facility] [place] SODIUM 6-07 mouth. ity of (COLACE 11:23: [place] ORAL) 09 Medical Branch vitamin C Yes 1000mg Take 1,000 [facility] with derrell 6-07 mg by ity of hips 11:23: mouth [place] (VITAMIN C) 09 daily. Medica l 1,000 mg Branch tablet cholecalcif Yes 1000U Take 1,000 [facility] edmar, 6-07 Units by ity of vitamin D3, 11:23: mouth [place] (VITAMIN 09 daily. Medical D3) 1,000 Branch unit tablet CRANBERRY Yes Take by [facility] rs FRUIT 6-07 mouth ity of EXTRACT 11:23: daily. [place] (CRANBERRY Medical ORAL) Branch CALCIUM Yes Take by [facility] ORAL 6-07 mouth ity of 11:23: daily. [place] [facility] DOCOSAHEXAN Yes 1000mg Take 1,000 [facility] OIC 6-07 mg by ity of ACID/EPA 11:23: mouth [place] (FISH OIL 09 daily. Medical ORAL) Branch BIOTIN ORAL Yes Take by Uni vers 6-07 mouth. ity of 11:23: Medical Branch FOLIC ACID Yes Take by Univ ers ORAL 6-07 mouth ity of 11:23: daily. [place] [facility] MULTIVIT Yes Take by Un[facility] s &MINERALS/F 6-07 mouth. ity of ERROUS FUM 11:23: [place] (MULTI 09 Medical VITAMIN Branch ORAL) METHYLCELLU Yes [facility] LOSE (FIBER 6-07 ity of THERAPY 11:23: [facility]) 09 Medical Branch DOCUSATE Yes Take by [facility] SODIUM 6-07 mouth. ity of (COLACE [...] 6-07 mouth ity of EXTRACT 11:23: daily. [place] (CRANBERRY 09 Medical ORAL) Branch CALCIUM Yes Take by [facility] ORAL 6-07 mouth ity of 11:23: daily. [place] [facility] DOCOSAHEXAN Yes 1000mg Take 1,000 [facility] OIC 6-07 mg by ity of ACID/EPA 11:23: mouth [place] (FISH OIL 09 daily. Medical ORAL) Branch BIOTIN ORAL Yes Take by Uni vers 6-07 mouth. ity of 11:23: [place] [address] Medical Branch FOLIC ACID Yes Take by Univ ers ORAL 6-07 mouth ity of 11:23: daily. [place] [address] Medical Branch MULTIVIT Yes Take by [facility] s &MINERALS/F 6-07 mouth. ity of ERROUS FUM 11:23: [place] (MULTI 09 Medical VITAMIN Branch ORAL) METHYLCELLU Yes Univer s LOSE (FIBER 6-07 ity of THERAPY 11:23: [facility]) 09 Medical Branch DOCUSATE 0 Yes Take by [facility] SODIUM 6-07 mouth. ity of (COLACE [...] Branch unit tablet CRANBERRY Yes Take by [facility] FRUIT 6-07 mouth ity of EXTRACT 11:23: daily. [place] (CRANBERRY Medical ORAL) Branch CALCIUM Yes Take by [facility] ORAL 6-07 mouth ity of 11:23: daily. [place] [facility] DOCOSAHEXAN Yes 1000mg Take 1,000 [facility] OIC 6-07 mg by ity of ACID/EPA 11:23: mouth [place] (FISH OIL 09 daily. Medical ORAL) Branch BIOTIN ORAL Yes Take by Uni vers 6-07 mouth. ity of 11:23: Medical Branch FOLIC ACID Yes Take by Univ ers ORAL 6-07 mouth ity of 11:23: daily. [place] [facility] MULTIVIT Yes Take by [facility]iver s &MINERALS/F 6-07 mouth. ity of ERROUS FUM 11:23: [place] (MULTI 09 Medical VITAMIN Branch ORAL) METHYLCELLU Yes [facility] LOSE (FIBER 6-07 ity of THERAPY 11:23: [place] MISC) 09 Medical Branch DOCUSATE Yes Take by [facility] s SODIUM 6-07 mouth. ity of (COLACE 11:23: [place] ORAL) 09 Medical Branch vitamin C Yes 1000mg Take 1,000 [facility] with derrell 6-07 mg by ity of hips 11:23: mouth [place] (VITAMIN C) 09 daily. Medica l 1,000 mg Branch tablet cholecalcif Yes 1000U Take 1,000 [facility] edmar, 6-07 Units by ity of vitamin D3, 11:23: mouth [place] (VITAMIN 09 daily. Medical D3) 1,000 Branch unit tablet CRANBERRY Yes Take by [facility] rs FRUIT 6-07 mouth ity of EXTRACT 11:23: daily. [place] (CRANBERRY Medical ORAL) Branch CALCIUM Yes Take by [facility] ORAL 6-07 mouth ity of 11:23: daily. [place] [facility] DOCOSAHEXAN Yes 1000mg Take 1,000 [...] 6-07 mouth. ity of ERROUS FUM 11:23: [place] (MULTI 09 Medical VITAMIN Branch ORAL) METHYLCELLU 0 Yes Univer s LOSE (FIBER 6-07 ity of THERAPY 11:23: [facility]) 09 Medical Branch DOCUSATE Yes Take by Univer s SODIUM 6-07 mouth. ity of (COLACE 11:23: [place] ORAL) 09 Medical Branch vitamin C Yes 1000mg Take 1,000 [facility] with derrell 6-07 mg by ity of hips 11:23: mouth [place] (VITAMIN C) 09 daily. Medica l 1,000 mg Branch tablet cholecalcif Yes 1000U Take 1,000 [facility] edmra, 6-07 Units by ity of vitamin D3, 11:23: mouth [place] (VITAMIN 09 daily. Medical D3) 1,000 Branch unit tablet CRANBERRY Yes Take by Unive rs FRUIT 6-07 mouth ity of EXTRACT 11:23: daily. [place] (CRANBERRY Medical ORAL) Branch CALCIUM Yes Take by [facility] ORAL 6-07 mouth ity of 11:23: daily. Medical Branch DOCOSAHEXAN Yes 1000mg Take 1,000 [facility] OIC 6-07 mg by ity of ACID/EPA 11:23: mouth [place] (FISH OIL 09 daily. Medical ORAL) Branch BIOTIN ORAL Yes Take by Uni vers 6-07 mouth. ity of 11:23: Medical Branch FOLIC ACID 0 Yes Take by Univ ers ORAL 6-07 mouth ity of 11:23: daily. [place] [facility] MULTIVIT 0 Yes Take by Univer s &MINERALS/F 6-07 mouth. ity of ERROUS FUM 11:23: [place] (MULTI 09 Medical VITAMIN Branch ORAL) METHYLCELLU 0 Yes Univer s LOSE (FIBER 6-07 ity of THERAPY 11:23: [facility]) 09 Medical Branch DOCUSATE Yes Take [...] by ity of vitamin D3, 11:23: mouth [place] (VITAMIN 09 daily. Medical D3) 1,000 Branch unit tablet CRANBERRY Yes Take by [facility] rs FRUIT 6-07 mouth ity of EXTRACT 11:23: daily. [place] (CRANBERRY 09 Medical ORAL) Branch CALCIUM Yes Take by [facility] ORAL 6-07 mouth ity of 11:23: daily. [place] [facility] DOCOSAHEXAN Yes 1000mg Take 1,000 [facility] OIC 6-07 mg by ity of ACID/EPA 11:23: mouth [place] (FISH OIL 09 daily. Medical ORAL) Branch BIOTIN ORAL Yes Take by Uni vers 6-07 mouth. ity of 11:23: [place] [address] Medical Branch FOLIC ACID Yes Take by Univ ers ORAL 6-07 mouth ity of 11:23: daily. [place] [address] Medical Branch MULTIVIT Yes Take by [facility] &MINERALS/F 6-07 mouth. ity of ERROUS FUM 11:23: [place] (MULTI 09 Medical VITAMIN Branch ORAL) METHYLCELLU Yes Univer s LOSE (FIBER 6-07 ity of THERAPY 11:23: [facility]) 09 Medical Branch DOCUSATE Yes Take by Univer s SODIUM 6-07 mouth. ity of (COLACE 11:23: [place] ORAL) 09 Medical Branch vitamin C Yes 1000mg Take 1,000 [facility] with derrell 6-07 mg by ity of hips 11:23: mouth [place] (VITAMIN C) 09 daily. Medica l 1,000 mg Branch tablet cholecalcif Yes 1000U Take 1,000 [facility] edmar, 6-07 Units by ity of vitamin D3, 11:23: mouth [place] (VITAMIN 09 daily. Medical D3) 1,000 Branch unit tablet CRANBERRY Yes Take by [facility] rs FRUIT 6-07 mouth ity of EXTRACT 11:23: daily. [place] (CRANBERRY Medical ORAL) Branch CALCIUM Yes Take by [facility] ORAL 6-07 mouth ity of 11:23: daily. [place] [facility] DOCOSAHEXAN Yes 1000mg Take 1,000 [facility] OIC 6-07 mg by ity of ACID/EPA 11:23: mouth [place] (FISH OIL 09 daily. Medical ORAL) Branch BIOTIN ORAL Yes Take by Uni vers 6-07 mouth. ity of 11:23: [place] [facility] FOLIC ACID Yes Take by Univ ers ORAL 6-07 mouth ity of 11:23: daily. [place] [facility] MULTIVIT Yes Take by [facility] s &MINERALS/F 6-07 mouth. ity of ERROUS FUM 11:23: [place] (MULTI 09 Medical VITAMIN Branch ORAL) METHYLCELLU Yes [facility] LOSE (FIBER 6-07 ity of THERAPY 11:23: [place] MISC) Medical Branch DOCUSATE Yes Take by [facility] SODIUM 6-07 mouth. ity of (COLACE 11:23: [place] ORAL) Medical Branch vitamin C Yes 1000mg Take 1,000 [facility] with derrell 6-07 mg by ity of hips 11:23: mouth [place] (VITAMIN C) 09 daily. Medica l 1,000 mg Branch tablet cholecalcif Yes 1000U Take 1,000 [facility] edmar, 6-07 Units by ity of vitamin D3, 11:23: mouth [place] (VITAMIN 09 daily. Medical D3) 1,000 Branch unit tablet CRANBERRY Yes Take by [facility] rs FRUIT 6-07 mouth ity of EXTRACT 11:23: daily. [place] (CRANBERRY Medical ORAL) Branch CALCIUM Yes Take by [facility] ORAL 6-07 mouth ity of 11:23: daily. [place] [facility] DOCOSAHEXAN Yes 1000mg Take 1,000 [facility] OIC 6-07 mg by ity of ACID/EPA 11:23: mouth [place] (FISH OIL 09 daily. Medical ORAL) Branch BIOTIN ORAL Yes Take by Uni vers 6-07 mouth. ity of 11:23: [place] [address] Medical Branch FOLIC ACID Yes Take by Univ ers ORAL 6-07 mouth ity of 11:23: daily. [place] [address] Medical Branch MULTIVIT Yes Take by Univer s &MINERALS/F 6-07 mouth. ity of ERROUS FUM 11:23: [place] ([place] [address] Medical VITAMIN Branch ORAL) METHYLCELLU Yes Univer s LOSE (FIBER 6-07 ity of THERAPY 11:23: [facility]) 09 Medical Branch DOCUSATE Yes Take by [facility] s SODIUM 6-07 mouth. ity of (COLACE 11:23: [place] ORAL) 09 Medical Branch vitamin C Yes 1000mg Take 1,000 [facility] with derrell 6-07 mg by ity of hips 11:23: mouth [place] (VITAMIN C) 09 daily. Medica l 1,000 mg Branch tablet cholecalcif Yes 1000U Take 1,000 [facility] edmar, 6-07 Units by ity of vitamin D3, 11:23: mouth [place] (VITAMIN 09 daily. Medical D3) 1,000 Branch unit tablet CRANBERRY Yes Take by [facility] rs FRUIT 6-07 mouth ity of EXTRACT 11:23: daily. [place] (CRAN[place]Y Medical ORAL) Branch CALCIUM Yes Take by [facility] ORAL 6-07 mouth ity of 11:23: daily. [place] [address] Medical Branch DOCOSAHEXAN Yes 1000mg Take 1,000 [facility] OIC 6-07 mg by ity of ACID/EPA 11:23: mouth [place] (FISH OIL 09 daily. Medical ORAL) Branch BIOTIN ORAL Yes Take by Uni vers 6-07 mouth. ity of 11:23: [place] [address] Medical Branch FOLIC ACID Yes Take by Univ ers ORAL 6-07 mouth ity of 11:23: daily. [place] [address] Medical Branch MULTIVIT Yes Take by Univer s &MINERALS/F 6-07 mouth. ity of ERROUS FUM 11:23: [place] ([place] [address] Medical VITAMIN Branch ORAL) METHYLCELLU Yes Univer s LOSE (FIBER 6-07 ity of THERAPY 11:23: [place] [facility]IS) 09 Medical Branch DOCUSATE Yes Take by [facility] SODIUM 6-07 mouth. ity of (COLACE [...] Branch unit tablet CRANBERRY Yes Take by [facility] FRUIT 6-07 mouth ity of EXTRACT 11:23: daily. [place] ([place] Medical ORAL) Branch CALCIUM Yes Take by [facility] ORAL 6-07 mouth ity of 11:23: daily. [place] [facility] DOCOSAHEXAN Yes 1000mg Take 1,000 [facility] OIC 6-07 mg by ity of ACID/EPA 11:23: mouth [place] (FISH OIL 09 daily. Medical ORAL) Branch BIOTIN ORAL Yes Take by Uni vers 6-07 mouth. ity of 11:23: [place] [facility] FOLIC ACID Yes Take by Univ ers ORAL 6-07 mouth ity of 11:23: daily. [place] [facility] MULTIVIT Yes Take by [facility] &MINERALS/F 6-07 mouth. ity of ERROUS FUM 11:23: [place] (MULTI 09 Medical VITAMIN Branch ORAL) METHYLCELLU Yes Univer s LOSE (FIBER 6-07 ity of THERAPY 11:23: [place] MISC) 09 Medical Branch DOCUSATE Yes Take by [facility] SODIUM 6-07 mouth. ity of (COLACE 11:23: [place] ORAL) 09 Medical Branch vitamin C Yes 1000mg Take 1,000 [facility] with derrell 6-07 mg by ity of hips 11:23: mouth [place] (VITAMIN C) 09 daily. Medica l 1,000 mg Branch tablet cholecalcif Yes 1000U Take 1,000 [facility] edmar, 6-07 Units by ity of vitamin D3, 11:23: mouth [place] (VITAMIN 09 daily. Medical D3) 1,000 Branch unit tablet CRANBERRY Yes Take by [facility] rs FRUIT 6-07 mouth ity of EXTRACT 11:23: daily. [place] (CRAN[place]ERRY 09 Medical ORAL) Branch CALCIUM Yes Take by [facility] ORAL 6-07 mouth ity of 11:23: daily. [place] [facility] DOCOSAHEXAN Yes 1000mg Take 1,000 [facility] OIC 6-07 mg by ity of ACID/EPA 11:23: mouth [place] (FISH OIL 09 daily. Medical ORAL) Branch BIOTIN ORAL Yes Take by Uni vers 6-07 mouth. ity of 11:23: Medical Branch FOLIC ACID Yes Take by Univ ers ORAL 6-07 mouth ity of 11:23: daily. [place] [facility] MULTIVIT Yes Take by Univer s &MINERALS/F 6-07 mouth. ity of ERROUS FUM 11:23: [place] (MULTI 09 Medical VITAMIN Branch ORAL) METHYLCELLU Yes Univer s LOSE (FIBER 6-07 ity of THERAPY 11:23: [place] MISC) Medical Branch DOCUSATE Yes Take by [facility] s SODIUM 6-07 mouth. ity of (COLACE 11:23: [place] ORAL) Medical Branch vitamin C Yes 1000mg Take 1,000 [facility] with derrell 6-07 mg by ity of hips 11:23: mouth [place] (VITAMIN C) 09 daily. Medica l 1,000 mg Branch tablet cholecalcif Yes 1000U Take 1,000 [facility] edmar, 6-07 Units by ity of vitamin D3, 11:23: mouth [place] (VITAMIN 09 daily. Medical D3) 1,000 Branch unit tablet CRANBERRY Yes Take by [facility] rs FRUIT 6-07 mouth ity of EXTRACT 11:23: daily. [place] ([place] Medical ORAL) Branch CALCIUM Yes Take by [facility] ORAL 6-07 mouth ity of 11:23: daily. [place] [facility] DOCOSAHEXAN Yes 1000mg Take 1,000 [facility] OIC 6-07 mg by ity of ACID/EPA 11:23: mouth [place] (FISH OIL 09 daily. Medical ORAL) Branch BIOTIN ORAL Yes Take by Uni vers 6-07 mouth. ity of 11:23: [place] [facility] FOLIC ACID Yes Take by Univ ers ORAL 6-07 mouth ity of 11:23: daily. [place] [address] Medical Branch MULTIVIT Yes Take by [facility] &MINERALS/F 6-07 mouth. ity of ERROUS FUM 11:23: [place] (MULTI Medical VITAMIN Branch ORAL) METHYLCELLU 0 Yes [facility] LOSE (FIBER 6-07 ity of THERAPY 11:23: [facility]) Medical Branch DOCUSATE Yes Take by [...] by ity of vitamin D3, 11:23: mouth [place] (VITAMIN 09 daily. Medical D3) 1,000 Branch unit tablet CRANBERRY Yes Take by [facility] rs FRUIT 6-07 mouth ity of EXTRACT 11:23: daily. [place] (CRAN[place]Y 09 Medical ORAL) Branch CALCIUM Yes Take by [facility] ORAL 6-07 mouth ity of 11:23: daily. [place] [address] Medical Branch DOCOSAHEXAN Yes 1000mg Take 1,000 [facility] OIC 6-07 mg by ity of ACID/EPA 11:23: mouth [place] (FISH OIL 09 daily. Medical ORAL) Branch BIOTIN ORAL Yes Take by Uni vers 6-07 mouth. ity of 11:23: [place] [address] Medical Branch FOLIC ACID Yes Take by Univ ers ORAL 6-07 mouth ity of 11:23: daily. [place] [address] Medical Branch MULTIVIT Yes Take by [facility] &MINERALS/F 6-07 mouth. ity of ERROUS FUM 11:23: [place] (MULTI Medical VITAMIN Branch ORAL) METHYLCELLU 0 Yes Univer s LOSE (FIBER 6-07 ity of THERAPY 11:23: [facility]) Medical Branch DOCUSATE 0 Yes Take by [facility] SODIUM 6-07 mouth. ity of (COLACE [...] 6-07 mouth ity of EXTRACT 11:23: daily. [place] ([place] Medical ORAL) Branch CALCIUM Yes Take by [facility] ORAL 6-07 mouth ity of 11:23: daily. [place] [facility] DOCOSAHEXAN Yes 1000mg Take 1,000 [facility] OIC 6-07 mg by ity of ACID/EPA 11:23: mouth [place] (FISH OIL 09 daily. Medical ORAL) Branch BIOTIN ORAL Yes Take by Uni vers 6-07 mouth. ity of 11:23: [place] [facility] FOLIC ACID Yes Take by Univ ers ORAL 6-07 mouth ity of 11:23: daily. [place] [facility] MULTIVIT Yes Take by [facility] &MINERALS/F 6-07 mouth. ity of ERROUS FUM 11:23: [place] (MULTI 09 Medical VITAMIN Branch ORAL) METHYLCELLU Yes Univer s LOSE (FIBER 6-07 ity of THERAPY 11:23: [place] MISC) 09 Medical Branch DOCUSATE Yes Take by Univer s SODIUM 6-07 mouth. ity of (COLACE 11:23: [place] ORAL) 09 Medical Branch vitamin C Yes 1000mg Take 1,000 [facility] with derrell 6-07 mg by ity of hips 11:23: mouth [place] (VITAMIN C) 09 daily. Medica l 1,000 mg Branch tablet cholecalcif 0 Yes 1000U Take 1,000 [facility] edmar, 6-07 Units by ity of vitamin D3, 11:23: mouth [place] (VITAMIN 09 daily. Medical D3) 1,000 Branch unit tablet CRANBERRY 0 Yes Take by [facility]ive rs FRUIT 6-07 mouth ity of EXTRACT 11:23: daily. [place] ([place] Medical ORAL) Branch CALCIUM Yes Take by [facility] ORAL 6-07 mouth ity of 11:23: daily. [place] [facility] DOCOSAHEXAN Yes 1000mg Take 1,000 [facility] OIC 6-07 mg by ity of ACID/EPA 11:23: mouth [place] (FISH OIL 09 daily. Medical ORAL) Branch BIOTIN ORAL Yes Take by Uni vers 6-07 mouth. ity of 11:23: Medical Branch FOLIC ACID Yes Take by Univ ers ORAL 6-07 mouth ity of 11:23: daily. [place] [facility] MULTIVIT Yes Take by Univer s &MINERALS/F 6-07 mouth. ity of ERROUS FUM 11:23: [place] (MULTI 09 Medical VITAMIN Branch ORAL) METHYLCELLU Yes [facility] LOSE (FIBER 6-07 ity of THERAPY 11:23: [place] MISC) 09 Medical Branch DOCUSATE Yes Take by Univer s SODIUM 6-07 mouth. ity of (COLACE 11:23: [place] ORAL) 09 Medical Branch vitamin C Yes 1000mg Take 1,000 [facility] with derrell 6-07 mg by ity of hips 11:23: mouth [place] (VITAMIN C) 09 daily. Medica l 1,000 mg Branch tablet cholecalcif Yes 1000U Take 1,000 [facility] edmar, 6-07 Units by ity of vitamin D3, 11:23: mouth [place] (VITAMIN 09 daily. Medical D3) 1,000 Branch unit tablet CRANBERRY Yes Take by Unive rs FRUIT 6-07 mouth ity of EXTRACT 11:23: daily. [place] ([place] Medical ORAL) Branch CALCIUM Yes Take by Univers ORAL 6-07 mouth ity of 11:23: daily. [place] [facility] DOCOSAHEXAN Yes 1000mg Take 1,000 [facility] OIC 6-07 mg by ity of ACID/EPA 11:23: mouth [place] (FISH OIL 09 daily. Medical ORAL) Branch BIOTIN ORAL Yes Take by Uni vers 6-07 mouth. ity of 11:23: Medical Branch FOLIC ACID Yes Take by Univ ers ORAL 6-07 mouth ity of 11:23: daily. [place] [facility] MULTIVIT Yes Take by Univer s &MINERALS/F 6-07 mouth. ity of ERROUS FUM 11:23: [place] (MULTI 09 Medical VITAMIN Branch ORAL) METHYLCELLU 0 Yes Univer s LOSE (FIBER 6-07 ity of THERAPY 11:23: [facility]) 09 Medical Branch DOCUSATE Yes Take [...] by ity of vitamin D3, 11:23: mouth [place] (VITAMIN 09 daily. Medical D3) 1,000 Branch unit tablet CRANBERRY Yes Take by [facility] rs FRUIT 6-07 mouth ity of EXTRACT 11:23: daily. [place] ([place]Y 09 Medical ORAL) Branch CALCIUM Yes Take by Univers ORAL 6-07 mouth ity of 11:23: daily. [place] [facility] DOCOSAHEXAN Yes 1000mg Take 1,000 [facility] OIC 6-07 mg by ity of ACID/EPA 11:23: mouth [place] (FISH OIL 09 daily. Medical ORAL) Branch BIOTIN ORAL Yes Take by Uni vers 6-07 mouth. ity of 11:23: [place] [address] Medical Branch FOLIC ACID Yes Take by Univ ers ORAL 6-07 mouth ity of 11:23: daily. [place] [facility] MULTIVIT Yes Take by [facility] &MINERALS/F 6-07 mouth. ity of ERROUS FUM 11:23: [place] (MULTI 09 Medical VITAMIN Branch ORAL) METHYLCELLU 0 Yes Univer s LOSE (FIBER 6-07 ity of THERAPY 11:23: [facility]) 09 Medical Branch DOCUSATE 0 Yes Take by Univer s SODIUM 6-07 mouth. ity of (COLACE 11:23: [place] ORAL) 09 Medical Branch vitamin C Yes 1000mg Take 1,000 [facility] with derrell 6-07 mg by ity of hips 11:23: mouth [place] (VITAMIN C) 09 daily. Medica l 1,000 mg Branch tablet cholecalcif 0 Yes 1000U Take 1,000 [facility] edmar, 6-07 Units by ity of vitamin D3, 11:23: mouth [place] (VITAMIN 09 daily. Medical D3) 1,000 Branch unit tablet CRANBERRY Yes Take by [facility] rs FRUIT 6-07 mouth ity of EXTRACT 11:23: daily. [place] ([place] Medical ORAL) Branch CALCIUM Yes Take by Univers ORAL 6-07 mouth ity of 11:23: daily. [place] [facility] DOCOSAHEXAN Yes 1000mg Take 1,000 [facility] OIC 6-07 mg by ity of ACID/EPA 11:23: mouth [place] (FISH OIL 09 daily. Medical ORAL) Branch BIOTIN ORAL Yes Take by Uni vers 6-07 mouth. ity of 11:23: Medical Branch FOLIC ACID Yes Take by Univ ers ORAL 6-07 mouth ity of 11:23: daily. [place] [facility] MULTIVIT Yes Take by [facility] s &MINERALS/F 6-07 mouth. ity of ERROUS FUM 11:23: [place] (MULTI 09 Medical VITAMIN Branch ORAL) METHYLCELLU Yes [facility] (FIBER 6-07 ity of THERAPY 11:23: [place] [facility]ISC) 09 Medical Branch DOCUSATE Yes Take by [facility] s SODIUM 6-07 mouth. ity of (COLACE 11:23: [place] ORAL) 09 Medical Branch vitamin C Yes 1000mg Take 1,000 [facility] with derrell 6-07 mg by ity of hips 11:23: mouth [place] (VITAMIN C) 09 daily. Medica l 1,000 mg Branch tablet cholecalcif Yes 1000U Take 1,000 [facility] edmar, 6-07 Units by ity of vitamin D3, 11:23: mouth [place] (VITAMIN 09 daily. Medical D3) 1,000 Branch unit tablet CRANBERRY Yes Take by [facility] rs FRUIT 6-07 mouth ity of EXTRACT 11:23: daily. [place] ([place] 09 Medical ORAL) Branch CALCIUM Yes Take by Univers ORAL 6-07 mouth ity of 11:23: daily. [place] [facility] DOCOSAHEXAN Yes 1000mg Take 1,000 [facility] OIC 6-07 mg by ity of ACID/EPA 11:23: mouth [place] (FISH OIL 09 daily. Medical ORAL) Branch BIOTIN ORAL Yes Take by Uni vers 6-07 mouth. ity of 11:23: Medical Branch FOLIC ACID Yes Take by Univ ers ORAL 6-07 mouth ity of 11:23: daily. [place] [facility] MULTIVIT Yes Take by Univer s &MINERALS/F 6-07 mouth. ity of ERROUS FUM 11:23: [place] (MULTI 09 Medical VITAMIN Branch ORAL) METHYLCELLU 0 Yes Univer s LOSE (FIBER 6-07 ity of THERAPY 11:23: [facility]) 09 Medical Branch DOCUSATE Yes Take by Univer s SODIUM 6-07 mouth. ity of (COLACE 11:23: [place] ORAL) 09 Medical Branch vitamin C Yes 1000mg Take 1,000 [facility] with derrell 6-07 mg by ity of hips 11:23: mouth [place] (VITAMIN C) 09 daily. Medica l 1,000 mg Branch tablet cholecalcif Yes 1000U Take 1,000 [facility] edmar, 6-07 Units by ity of vitamin D3, 11:23: mouth [place] (VITAMIN 09 daily. Medical D3) 1,000 Branch unit tablet CRANBERRY Yes Take by [facility]ive rs FRUIT 6-07 mouth ity of EXTRACT 11:23: daily. [place] ([place] 09 Medical ORAL) Branch CALCIUM Yes Take by Univers ORAL 6-07 mouth ity of 11:23: daily. [place] [facility] DOCOSAHEXAN Yes 1000mg Take 1,000 [facility] OIC 6-07 mg by ity of ACID/EPA 11:23: mouth [place] (FISH OIL 09 daily. Medical ORAL) Branch BIOTIN ORAL Yes Take by Uni vers 6-07 mouth. ity of 11:23: [place] [facility] FOLIC ACID Yes Take by Univ ers ORAL 6-07 mouth ity of 11:23: daily. [place] [facility] MULTIVIT 0 Yes Take by Univer s &MINERALS/F 6-07 mouth. ity of ERROUS FUM 11:23: [place] (MULTI 09 Medical VITAMIN Branch ORAL) METHYLCELLU 0 Yes Univer s LOSE (FIBER 6-07 ity of THERAPY 11:23: [facility]) 09 Medical Branch DOCUSATE Yes [facility] SOD[facility] 6-07 mouth. ity of (COLACE 11:23: [place] ORAL) 09 Medical Branch vitamin C Yes 1000mg Take 1,000 [facility] with derrell 6-07 mg by ity of hips 11:23: mouth [place] (VITAMIN C) 09 daily. Medica l 1,000 mg Branch tablet cholecalcif Yes 1000U Take 1,000 [facility] edmar, 6-07 Units by ity of vitamin D3, 11:23: mouth [place] (VITAMIN 09 daily. Medical D3) 1,000 Branch unit tablet CRANBERRY Yes Take by [facility] rs FRUIT 6-07 mouth ity of EXTRACT 11:23: daily. [place] ([place] Medical ORAL) Branch CALCIUM Yes Take by Univers ORAL 6-07 mouth ity of 11:23: daily. [place] [facility] DOCOSAHEXAN Yes 1000mg Take 1,000 [facility] OIC 6-07 mg by ity of ACID/EPA 11:23: mouth [place] (FISH OIL 09 daily. Medical ORAL) Branch BIOTIN ORAL Yes Take by Uni vers 6-07 mouth. ity of 11:23: [place] [address] Medical Branch FOLIC ACID Yes Take by Univ ers ORAL 6-07 mouth ity of 11:23: daily. [place] [address] Medical Branch MULTIVIT Yes [facility] &MINERALS/F 6-07 mouth. ity of ERROUS FUM 11:23: [place] (MULTI 09 Medical VITAMIN Branch ORAL) METHYLCELLU 0 Yes [facility] LOSE (FIBER 6-07 ity of THERAPY 11:23: [facility]) 09 Medical Branch DOCUSATE Yes Take by [facility] SODIUM 6-07 mouth. ity of (COLACE 11:23: [place] ORAL) 09 Medical Branch vitamin C Yes 1000mg Take 1,000 [facility] with derrell 6-07 mg by ity of hips 11:23: mouth [place] (VITAMIN C) 09 daily. Medica l 1,000 mg Branch tablet cholecalcif 0 Yes 1000U Take 1,000 [facility] edmar, 6-07 Units by ity of vitamin D3, 11:23: mouth [place] (VITAMIN 09 daily. Medical D3) 1,000 Branch unit tablet CRANBERRY Yes Take by [facility] rs FRUIT 6-07 mouth ity of EXTRACT 11:23: daily. [place] ([place] Medical ORAL) Branch CALCIUM Yes Take by Univers ORAL 6-07 mouth ity of 11:23: daily. [place] [facility] Branch DOCOSAHEXAN Yes 1000mg Take 1,000 [facility] OIC 6-07 mg by ity of ACID/EPA 11:23: mouth [place] (FISH OIL 09 daily. Medical ORAL) Branch BIOTIN ORAL Yes Take by Uni vers 6-07 mouth. ity of 11:23: Medical Branch FOLIC ACID Yes Take by Univ ers ORAL 6-07 mouth ity of 11:23: daily. [place] Medical Branch MULTIVIT Yes Take by [facility] &MINERALS/F 6-07 mouth. ity of ERROUS FUM 11:23: [place] (MULTI 09 Medical VITAMIN Branch ORAL) METHYLCELLU Yes Univer s LOSE (FIBER 6-07 ity of THERAPY 11:23: [place] MISC) Medical Branch DOCUSATE Yes Take by Univer s SODIUM 6-07 mouth. ity of (COLACE 11:23: [place] ORAL) 09 Medical Branch vitamin C Yes 1000mg Take 1,000 [facility] with derrell 6-07 mg by ity of hips 11:23: mouth [place] (VITAMIN C) 09 daily. Medica l 1,000 mg Branch tablet cholecalcif Yes 1000U Take 1,000 [facility] edmar, 6-07 Units by ity of vitamin D3, 11:23: mouth [place] (VITAMIN 09 daily. Medical D3) 1,000 Branch unit tablet CRANBERRY Yes Take by Unive rs FRUIT 6-07 mouth ity of EXTRACT 11:23: daily. [place] (CRANBERRY Medical ORAL) Branch CALCIUM Yes Take by Univers ORAL 6-07 mouth ity of 11:23: daily. [place] [facility] Branch DOCOSAHEXAN Yes 1000mg Take 1,000 [facility] OIC 6-07 mg by ity of ACID/EPA 11:23: mouth [place] (FISH OIL 09 daily. Medical ORAL) Branch BIOTIN ORAL Yes Take by Uni vers 6-07 mouth. ity of 11:23: [place] [address] Medical Branch FOLIC ACID Yes Take by Univ ers ORAL 6-07 mouth ity of 11:23: daily. [place] [facility] Branch MULTIVIT Yes Take by Univer s &MINERALS/F 6-07 mouth. ity of ERROUS FUM 11:23: [place] ([place] [address] Medical VITAMIN Branch ORAL) METHYLCELLU Yes Univer s LOSE (FIBER 6-07 ity of THERAPY 11:23: [facility]) Medical Branch DOCUSATE Yes Take by Univer s SODIUM 6-07 mouth. ity of (COLACE 11:23: [place] ORAL) 09 Medical Branch vitamin C Yes 1000mg Take 1,000 [facility] with derrell 6-07 mg by ity of hips 11:23: mouth [place] (VITAMIN C) 09 daily. Medica l 1,000 mg Branch tablet cholecalcif Yes 1000U Take 1,000 [facility] edmar, 6-07 Units by ity of vitamin D3, 11:23: mouth [place] (VITAMIN 09 daily. Medical D3) 1,000 Branch unit tablet CRANBERRY Yes Take by [facility] rs FRUIT 6-07 mouth ity of EXTRACT 11:23: daily. [place] (CRANBERRY Medical ORAL) Branch CALCIUM Yes Take by Univers ORAL 6-07 mouth ity of 11:23: daily. [place] Medical Branch DOCOSAHEXAN Yes 1000mg Take 1,000 [facility] OIC 6-07 mg by ity of ACID/EPA 11:23: mouth [place] (FISH OIL 09 daily. Medical ORAL) Branch BIOTIN ORAL Yes Take by Uni vers 6-07 mouth. ity of 11:23: [place] [address] Medical Branch FOLIC ACID Yes Take by Univ ers ORAL 6-07 mouth ity of 11:23: daily. [place] [address] Medical Branch MULTIVIT Yes Take by Univer s &MINERALS/F 6-07 mouth. ity of ERROUS FUM 11:23: [place] (MULTI 09 Medical VITAMIN Branch ORAL) METHYLCELLU Yes Univer s LOSE (FIBER 6-07 ity of THERAPY 11:23: [facility]) 09 Medical Branch [facility]ATE [facility] mouth. ity of (COLACE 11:23: [place] ORAL) 09 Medical Branch vitamin C Yes 1000mg Take 1,000 [facility] with derrell 6-07 mg by ity of hips 11:23: mouth [place] (VITAMIN C) 09 daily. Medica l 1,000 mg Branch tablet cholecalcif Yes 1000U Take 1,000 [facility] edmar, 6-07 Units by ity of vitamin D3, 11:23: mouth [place] (VITAMIN 09 daily. Medical D3) 1,000 Branch unit tablet CRANBERRY Yes Take by [place] rs FRUIT 6- mouth ity of EXTRACT 11:23: daily. [place] (CRANBERRY 09 Medical ORAL) Branch CALCIUM Yes Take by Univers ORAL 6 mouth ity of 11:23: daily. [place] Medical Branch DOCOSAHEXAN Yes 1000mg Take 1,000 [facility] OIC 6-07 mg by ity of ACID/EPA 11:23: mouth [place] (FISH OIL 09 daily. Medical ORAL) Branch BIOTIN ORAL Yes Take by Uni vers 6- mouth. ity of 11:23: [place] 09 Medical Branch FOLIC ACID Yes Take by [facility] ers ORAL 6- mouth ity of 11:58: daily. [place] [address] Medical Branch MULTIVIT Yes Take by [facility] s &MINERALS/F 6- mouth. ity of ERROUS FUM 11:58: [place] (MULTI 16 Medical VITAMIN Branch ORAL) METHYLCELLU Yes Univer s LOSE (FIBER 6- ity of THERAPY 11:58: [facility]) 16 Medical Branch DOCUSATE Yes Take [facility] SODIUM 6-01 mouth. ity of (COLACE 11:58: [place] ORAL) 16 Medical Branch vitamin C Yes 1000mg Take 1,000 [facility] with derrell 6-01 mg by ity of hips 11:58: mouth [place] (VITAMIN C) 16 daily. Medica l 1,000 mg Branch tablet cholecalcif Yes 1000U Take 1,000 Univers edmar, 6-01 Units by ity of vitamin D3, 11:58: mouth [place] (VITAMIN 16 daily. Medical D3) 1,000 Branch unit tablet CRANBERRY Yes Take by [facility] rs FRUIT 6- mouth ity of EXTRACT 11:58: daily. [place] (CRANBERRY 16 Medical ORAL) [place] CALCIUM 0 Yes Take by Univers ORAL 6-01 mouth ity of 11:58: daily. [address] DOCOSAHEXAN 0 Yes 1000mg Take 1,000 [facility] OIC 6-01 mg by ity of ACID/EPA 11:58: mouth [place] (FISH OIL 16 daily. Medical ORAL) [place] BIOTIN ORAL 0 Yes Take by Uni vers 6-01 mouth. ity of 11:58: [address] metformin 0 Yes [id number] 500mg Take 1 U nivers ER 500 mg 5-31 tablet by ity o f 24 hr 00:00: mouth [place] tablet 00 daily with Medical breakfast. Branch STOP REGULAR METFORMIN. metformin Yes [id number] 500mg Take 1 U nivers ER 500 mg 5-31 tablet by ity o f 24 hr 00:00: mouth [place] tablet 00 daily with Medical breakfast. Branch STOP REGULAR METFORMIN. metformin Yes [id number] 500mg Take 1 U nivers ER 500 mg 5-31 tablet by ity o f 24 hr 00:00: mouth [place] tablet 00 daily with Medical breakfast. Branch STOP REGULAR METFORMIN. metformin Yes [id number] 500mg Take 1 U nivers ER 500 mg 5-31 tablet by ity o f 24 hr 00:00: mouth [place] tablet 00 daily with Medical breakfast. Branch STOP REGULAR METFORMIN. metformin 0 Yes [id number] 500mg Take 1 U nivers ER 500 mg 5-31 tablet by ity o f 24 hr 00:00: mouth [place] tablet 00 daily with Medical breakfast. Branch STOP REGULAR METFORMIN. metformin 2021-0 Yes [id number] 500mg Take 1 U nivers ER 500 mg 5-31 tablet by ity o f 24 hr 00:00: mouth [place] tablet 00 daily with Medical breakfast. Branch STOP REGULAR METFORMIN. metformin 2021-0 Yes [id number] 500mg Take 1 U nivers ER 500 mg 5-31 tablet by ity o f 24 hr 00:00: mouth [place] tablet 00 daily with Medical breakfast. Branch STOP REGULAR METFORMIN. metformin 2021-0 Yes [id number] 500mg Take 1 U nivers ER 500 mg 5-31 tablet by ity o f 24 hr 00:00: mouth [place] tablet 00 daily with Medical breakfast. Branch STOP REGULAR METFORMIN. metformin 2022-0 Yes [id number] 500mg Take 1 U nivers ER 500 mg 5-31 tablet by ity o f 24 hr 00:00: mouth [place] tablet 00 daily with Medical breakfast. Branch STOP REGULAR METFORMIN. metformin 2021-0 Yes [id number] 500mg Take 1 U nivers ER 500 mg 5-31 tablet by ity o f 24 hr 00:00: mouth [place] tablet 00 daily with Medical breakfast. Branch STOP REGULAR METFORMIN. metformin 2021-0 Yes [id number] 500mg Take 1 U nivers ER 500 mg 5-31 tablet by ity o f 24 hr 00:00: mouth [place] tablet 00 daily with Medical breakfast. Branch STOP REGULAR METFORMIN. metformin 2021-0 Yes [id number] 500mg Take 1 U nivers ER 500 mg 5-31 tablet by ity o f 24 hr 00:00: mouth [place] tablet 00 daily with Medical breakfast. Branch STOP REGULAR METFORMIN. metformin 2021-0 Yes [id number] 500mg Take 1 U nivers ER 500 mg 5-31 tablet by ity o f 24 hr 00:00: mouth [place] tablet 00 daily with Medical breakfast. Branch STOP REGULAR METFORMIN. metformin 2021-0 Yes [id number] 500mg Take 1 U nivers ER 500 mg 5-31 tablet by ity o f 24 hr 00:00: mouth [place] tablet 00 daily with Medical breakfast. Branch STOP REGULAR METFORMIN. metformin 2021-0 Yes [id number] 500mg Take 1 U nivers ER 500 mg 5-31 tablet by ity o f 24 hr 00:00: mouth [place] tablet 00 daily with Medical breakfast. Branch STOP REGULAR METFORMIN. metformin 2021-0 Yes [id number] 500mg Take 1 U nivers ER 500 mg 5-31 tablet by ity o f 24 hr 00:00: mouth [place] tablet 00 daily with Medical breakfast. Branch STOP REGULAR METFORMIN. metformin 2021-0 Yes [id number] 500mg Take 1 U nivers ER 500 mg 5-31 tablet by ity o f 24 hr 00:00: mouth [place] tablet 00 daily with Medical breakfast. Branch STOP REGULAR METFORMIN. metformin 2021-0 Yes [id number] 500mg Take 1 U nivers ER 500 mg 5-31 tablet by ity o f 24 hr 00:00: mouth [place] tablet 00 daily with Medical breakfast. Branch STOP REGULAR METFORMIN. metformin 2021-0 Yes [id number] 500mg Take 1 U nivers ER 500 mg 5-31 tablet by ity o f 24 hr 00:00: mouth [place] tablet 00 daily with Medical breakfast. Branch STOP REGULAR METFORMIN. metformin 2021-0 Yes [id number] 500mg Take 1 U nivers ER 500 mg 5-31 tablet by ity o f 24 hr 00:00: mouth [place] tablet 00 daily with Medical breakfast. Branch STOP REGULAR METFORMIN. metformin 2021-0 Yes [id number] 500mg Take 1 U nivers ER 500 mg 5-31 tablet by ity o f 24 hr 00:00: mouth [place] tablet 00 daily with Medical breakfast. Branch STOP REGULAR METFORMIN. metformin 2021-0 Yes [id number] 500mg Take 1 U nivers ER 500 mg 5-31 tablet by ity o f 24 hr 00:00: mouth [place] tablet 00 daily with Medical breakfast. Branch STOP REGULAR METFORMIN. metformin 2021-0 Yes [id number] 500mg Take 1 U nivers ER 500 mg 5-31 tablet by ity o f 24 hr 00:00: mouth [place] tablet 00 daily with Medical breakfast. Branch STOP REGULAR METFORMIN. metformin 2021-0 Yes [id number] 500mg Take 1 U nivers ER 500 mg 5-31 tablet by ity o f 24 hr 00:00: mouth [place] tablet 00 daily with Medical breakfast. Branch STOP REGULAR METFORMIN. metformin 2021-0 Yes [id number] 500mg Take 1 U nivers ER 500 mg 5-31 tablet by ity o f 24 hr 00:00: mouth [place] tablet 00 daily with Medical breakfast. Branch STOP REGULAR METFORMIN. metformin 2021-0 Yes [id number] 500mg Take 1 U nivers ER 500 mg 5-31 tablet by ity o f 24 hr 00:00: mouth [place] tablet 00 daily with Medical breakfast. Branch STOP REGULAR METFORMIN. metformin 2021-0 Yes [id number] 500mg Take 1 U nivers ER 500 mg 5-31 tablet by ity o f 24 hr 00:00: mouth [place] tablet 00 daily with Medical breakfast. Branch STOP REGULAR METFORMIN. metformin 2021-0 Yes [id number] 500mg Take 1 U nivers ER 500 mg 5-31 tablet by ity o f 24 hr 00:00: mouth [place] tablet 00 daily with Medical breakfast. Branch STOP REGULAR METFORMIN. metformin 2021-0 Yes [id number] 500mg Take 1 U nivers ER 500 mg 5-31 tablet by ity o f 24 hr 00:00: mouth [place] tablet 00 daily with Medical breakfast. Branch STOP REGULAR METFORMIN. metformin 2021-0 Yes [id number] 500mg Take 1 U nivers ER 500 mg 5-31 tablet by ity o f 24 hr 00:00: mouth [place] tablet 00 daily with Medical breakfast. Branch STOP REGULAR METFORMIN. metformin 2021-0 Yes [id number] 500mg Take 1 U nivers ER 500 mg 5-31 tablet by ity o f 24 hr 00:00: mouth [place] tablet 00 daily with Medical breakfast. Branch STOP REGULAR METFORMIN. metformin 2021-0 Yes [id number] 500mg Take 1 U nivers ER 500 mg 5-31 tablet by ity o f 24 hr 00:00: mouth [place] tablet 00 daily with Medical breakfast. Branch STOP REGULAR METFORMIN. metformin 2021-0 Yes [id number] 500mg Take 1 U nivers ER 500 mg 5-31 tablet by ity o f 24 hr 00:00: mouth [place] tablet 00 daily with Medical breakfast. Branch STOP REGULAR METFORMIN. metformin 2021-0 Yes [id number] 500mg Take 1 U nivers ER 500 mg 5-31 tablet by ity o f 24 hr 00:00: mouth [place] tablet 00 daily with Medical breakfast. Branch STOP REGULAR METFORMIN. metformin 2021-0 Yes [id number] 500mg Take 1 U nivers ER 500 mg 5-31 tablet by ity o f 24 hr 00:00: mouth [place] tablet 00 daily with Medical breakfast. Branch STOP REGULAR METFORMIN. metformin 2021-0 Yes [id number] 500mg Take 1 U nivers ER 500 mg 5-31 tablet by ity o f 24 hr 00:00: mouth [place] tablet 00 daily with Medical breakfast. Branch STOP REGULAR METFORMIN. metformin 2021-0 Yes [id number] 500mg Take 1 U nivers ER 500 mg 5-31 tablet by ity o f 24 hr 00:00: mouth [place] tablet 00 daily with Medical breakfast. Branch STOP REGULAR METFORMIN. metformin 2021-0 Yes [id number] 500mg Take 1 U nivers ER 500 mg 5-31 tablet by ity o f 24 hr 00:00: mouth [place] tablet 00 daily with Medical breakfast. Branch STOP REGULAR METFORMIN. metformin 2021-0 Yes [id number] 500mg Take 1 U nivers ER 500 mg 5-31 tablet by ity o f 24 hr 00:00: mouth [place] tablet 00 daily with Medical breakfast. Branch STOP REGULAR METFORMIN. metformin 2021-0 Yes [id number] 500mg Take 1 U nivers ER 500 mg 5-31 tablet by ity o f 24 hr 00:00: mouth [place] tablet 00 daily with Medical breakfast. Branch STOP REGULAR METFORMIN. metformin 2021-0 Yes [id number] 500mg Take 1 U nivers ER 500 mg 5-31 tablet by ity o f 24 hr 00:00: mouth [place] tablet 00 daily with Medical breakfast. Branch STOP REGULAR METFORMIN. metformin 2021-0 Yes [id number] 500mg Take 1 U nivers ER 500 mg 5-31 tablet by ity o f 24 hr 00:00: mouth [place] tablet 00 daily with Medical breakfast. Branch STOP REGULAR METFORMIN. metformin 2021-0 Yes [id number] 500mg Take 1 U nivers ER 500 mg 5-31 tablet by ity o f 24 hr 00:00: mouth [place] tablet 00 daily with Medical breakfast. Branch STOP REGULAR METFORMIN. metformin 2021-0 Yes [id number] 500mg Take 1 U nivers ER 500 mg 5-31 tablet by ity o f 24 hr 00:00: mouth [place] tablet 00 daily with Medical breakfast. Branch STOP REGULAR METFORMIN. metformin 2021-0 Yes [id number] 500mg Take 1 U nivers ER 500 mg 5-31 tablet by ity o f 24 hr 00:00: mouth [place] tablet 00 daily with Medical breakfast. Branch STOP REGULAR METFORMIN. metformin 2021-0 Yes [id number] 500mg Take 1 U nivers ER 500 mg 5-31 tablet by ity o f 24 hr 00:00: mouth [place] tablet 00 daily with Medical breakfast. Branch STOP REGULAR METFORMIN. metformin 2021-0 Yes [id number] 500mg Take 1 U nivers ER 500 mg 5-31 tablet by ity o f 24 hr 00:00: mouth [place] tablet 00 daily with Medical breakfast. Branch STOP REGULAR METFORMIN. metformin 2021-0 Yes [id number] 500mg Take 1 U nivers ER 500 mg 5-31 tablet by ity o f 24 hr 00:00: mouth [place] tablet 00 daily with Medical breakfast. Branch STOP REGULAR METFORMIN. metformin 2021-0 2022- No [id number] 500mg Take 1 Univers ER 500 mg 5-31 10-13 tablet by ity of 24 hr 00:00: 00:00 mouth [place] tablet 00 :00 daily with Medical breakfast. Branch STOP REGULAR METFORMIN. ibuprofen 2022-0 Yes [id number] 600mg Take 1 [facility] 600 mg 5-19 [id number] tablet by ity of tablet 00:00: mouth [place] 00 every 6 Medical (six) Branch hours as needed for Pain (scale 4-6). ibuprofen 2022-0 Yes [id number] 600mg Take 1 [facility] 600 mg 5-19 [id number] tablet by ity of tablet 00:00: mouth [place] 00 every 6 Medical (six) Branch hours as needed for Pain (scale 4-6). ibuprofen 2022-0 Yes [id number] 600mg Take 1 [facility] 600 mg 5-19 [id number] tablet by ity of tablet 00:00: mouth [place] 00 every 6 Medical (six) Branch hours as needed for Pain (scale 4-6). ibuprofen 2022-0 Yes [id number] 600mg Take 1 [facility] 600 mg 5-19 [id number] tablet by ity of tablet 00:00: mouth [place] 00 every 6 Medical (six) Branch hours as needed for Pain (scale 4-6). ibuprofen 2022-0 Yes [id number] 600mg Take 1 [facility] 600 mg 5-19 [id number] tablet by ity of tablet 00:00: mouth [place] 00 every 6 Medical (six) Branch hours as needed for Pain (scale 4-6). ibuprofen 2022-0 Yes [id number] 600mg Take 1 Univers 600 mg 5-19 [id number] tablet by ity of tablet 00:00: mouth [place] 00 every 6 Medical (six) Branch hours as needed for Pain (scale 4-6). ibuprofen 2022-0 Yes [id number] 600mg Take 1 Univers 600 mg 5-19 [id number] tablet by ity of tablet 00:00: mouth [place] 00 every 6 Medical (six) Branch hours as needed for Pain (scale 4-6). ibuprofen 2022-0 Yes [id number] 600mg Take 1 [facility] 600 mg 5-19 [id number] tablet by ity of tablet 00:00: mouth [place] 00 every 6 Medical (six) Branch hours as needed for Pain (scale 4-6). ibuprofen 2022-0 Yes [id number] 600mg Take 1 [facility] 600 mg 5-19 [id number] tablet by ity of tablet 00:00: mouth [place] 00 every 6 Medical (six) Branch hours as needed for Pain (scale 4-6). ibuprofen 2022-0 Yes [id number] 600mg Take 1 [facility] 600 mg 5-19 [id number] tablet by ity of tablet 00:00: mouth [place] 00 every 6 Medical (six) Branch hours as needed for Pain (scale 4-6). ibuprofen 2022-0 Yes [id number] 600mg Take 1 [facility] 600 mg 5-19 [id number] tablet by ity of tablet 00:00: mouth [place] 00 every 6 Medical (six) Branch hours as needed for Pain (scale 4-6). ibuprofen 2022-0 Yes [id number] 600mg Take 1 [facility] 600 mg 5-19 [id number] tablet by ity of tablet 00:00: mouth [place] 00 every 6 Medical (six) Branch hours as needed for Pain (scale 4-6). ibuprofen 2022-0 Yes [id number] 600mg Take 1 [facility] 600 mg 5-19 [id number] tablet by ity of tablet 00:00: mouth [place] 00 every 6 Medical (six) Branch hours as needed for Pain (scale 4-6). ibuprofen 2022-0 Yes [id number] 600mg Take 1 [facility] 600 mg 5-19 [id number] tablet by ity of tablet 00:00: mouth [place] 00 every 6 Medical (six) Branch hours as needed for Pain (scale 4-6). ibuprofen 2022-0 Yes [id number] 600mg Take 1 [facility] 600 mg 5-19 [id number] tablet by ity of tablet 00:00: mouth [place] 00 every 6 Medical (six) Branch hours as needed for Pain (scale 4-6). ibuprofen 2022-0 Yes [id number] 600mg Take 1 [facility] 600 mg 5-19 [id number] tablet by ity of tablet 00:00: mouth [place] 00 every 6 Medical (six) Branch hours as needed for Pain (scale 4-6). ibuprofen 2022-0 Yes [id number] 600mg Take 1 [facility] 600 mg 5-19 [id number] tablet by ity of tablet 00:00: mouth [place] 00 every 6 Medical (six) Branch hours as needed for Pain (scale 4-6). ibuprofen 2022-0 Yes [id number] 600mg Take 1 [facility] 600 mg 5-19 [id number] tablet by ity of tablet 00:00: mouth [place] 00 every 6 Medical (six) Branch hours as needed for Pain (scale 4-6). ibuprofen 2022-0 Yes [id number] 600mg Take 1 [facility] 600 mg 5-19 [id number] tablet by ity of tablet 00:00: mouth [place] 00 every 6 Medical (six) Branch hours as needed for Pain (scale 4-6). ibuprofen 2022-0 Yes [id number] 600mg Take 1 [facility] 600 mg 5-19 [id number] tablet by ity of tablet 00:00: mouth [place] 00 every 6 Medical (six) Branch hours as needed for Pain (scale 4-6). ibuprofen 2022-0 Yes [id number] 600mg Take 1 [facility] 600 mg 5-19 [id number] tablet by ity of tablet 00:00: mouth [place] 00 every 6 Medical (six) Branch hours as needed for Pain (scale 4-6). ibuprofen 2022-0 Yes [id number] 600mg Take 1 [facility] 600 mg 5-19 [id number] tablet by ity of tablet 00:00: mouth [place] 00 every 6 Medical (six) Branch hours as needed for Pain (scale 4-6). ibuprofen 2022-0 Yes [id number] 600mg Take 1 [facility] 600 mg 5-19 [id number] tablet by ity of tablet 00:00: mouth [place] 00 every 6 Medical (six) Branch hours as needed for Pain (scale 4-6). ibuprofen 2022-0 Yes [id number] 600mg Take 1 [facility] 600 mg 5-19 [id number] tablet by ity of tablet 00:00: mouth [place] 00 every 6 Medical (six) Branch hours as needed for Pain (scale 4-6). ibuprofen 2022-0 Yes [id number] 600mg Take 1 [facility] 600 mg 5-19 [id number] tablet by ity of tablet 00:00: mouth [place] 00 every 6 Medical (six) Branch hours as needed for Pain (scale 4-6). ibuprofen 2022-0 Yes [id number] 600mg Take 1 [facility] 600 mg 5-19 [id number] tablet by ity of tablet 00:00: mouth [place] 00 every 6 Medical (six) Branch hours as needed for Pain (scale 4-6). ibuprofen 2022-0 Yes [id number] 600mg Take 1 [facility] 600 mg 5-19 [id number] tablet by ity of tablet 00:00: mouth [place] 00 every 6 Medical (six) Branch hours as needed for Pain (scale 4-6). ibuprofen 2022-0 Yes [id number] 600mg Take 1 [facility] 600 mg 5-19 [id number] tablet by ity of tablet 00:00: mouth [place] 00 every 6 Medical (six) Branch hours as needed for Pain (scale 4-6). ibuprofen 2022-0 Yes [id number] 600mg Take 1 [facility] 600 mg 5-19 [id number] tablet by ity of tablet 00:00: mouth [place] 00 every 6 Medical (six) Branch hours as needed for Pain (scale 4-6). ibuprofen 2022-0 Yes [id number] 600mg Take 1 [facility] 600 mg 5-19 [id number] tablet by ity of tablet 00:00: mouth [place] 00 every 6 Medical (six) Branch hours as needed for Pain (scale 4-6). ibuprofen 2-0 Yes [id number] 600mg Take 1 [facility] 600 mg 5-19 [id number] tablet by ity of tablet 00:00: mouth [place] 00 every 6 Medical (six) Branch hours as needed for Pain (scale 4-6). ibuprofen 2021-0 Yes [id number] 600mg Take 1 [facility] 600 mg 5-19 [id number] tablet by ity of tablet 00:00: mouth [place] 00 every 6 Medical (six) Branch hours as needed for Pain (scale 4-6). ibuprofen 2021-0 Yes [id number] 600mg Take 1 [facility] 600 mg 5-19 [id number] tablet by ity of tablet 00:00: mouth [place] 00 every 6 Medical (six) Branch hours as needed for Pain (scale 4-6). ibuprofen 2-0 Yes [id number] 600mg Take 1 [facility] 600 mg 5-19 [id number] tablet by ity of tablet 00:00: mouth [place] 00 every 6 Medical (six) Branch hours as needed for Pain (scale 4-6). ibuprofen 2-0 Yes [id number] 600mg Take 1 [facility] 600 mg 5-19 [id number] tablet by ity of tablet 00:00: mouth [place] 00 every 6 Medical (six) Branch hours as needed for Pain (scale 4-6). ibuprofen 2022-0 Yes [id number] 600mg Take 1 [facility] 600 mg 5-19 [id number] tablet by ity of tablet 00:00: mouth [place] 00 every 6 Medical (six) Branch hours as needed for Pain (scale 4-6). ibuprofen 2022-0 2022- No [id number] 600mg Take 1 [facility] 600 mg 5-19 - [id number] tablet by ity o f tablet 00:00: 00:00 mouth [place] 00 :00 every 6 Medical (six) Branch hours as needed for Pain (scale 4-6). ibuprofen 2021-0 2- No [id number] 600mg Take 1 [facility] 600 mg 02-11 [id number] tablet by ity o f tablet 00:00: 00:00 mouth [place] 00 :00 every 6 Medical (six) Branch hours as needed for Pain (scale 4-6). ibuprofen 2021-0 2- No [id number] 600mg Take 1 [facility] 600 mg 02-11 [id number] tablet by ity o f tablet 00:00: 00:00 mouth [place] 00 :00 every 6 Medical (six) Branch hours as needed for Pain (scale 4-6). topiramate 2021-0 Yes [id number] 50mg Take 2 Univers 25 mg 5-16 tablets by ity of tablet 00:00: [address] (two) Medical times Branch daily. topiramate 2021-0 Yes [id number] 50mg Take 2 Univers 25 mg 5-16 tablets by ity of tablet 00:00: [address] (two) Medical times Branch daily. topiramate 2021-0 Yes [id number] 50mg Take 2 Univers 25 mg 5-16 tablets by ity of tablet 00:00: [address] (two) Medical times Branch daily. topiramate 2021-0 Yes [id number] 50mg Take 2 Univers 25 mg 5-16 tablets by ity of tablet 00:00: [address] (two) Medical times Branch daily. topiramate 2021-0 Yes [id number] 50mg Take 2 Univers 25 mg 5-16 tablets by ity of tablet 00:00: mouth [address] [place] [address] (two) Medical times Branch daily. topiramate 2-0 Yes [id number] 50mg Take 2 [facility] 25 mg 5-16 tablets by ity of tablet 00:00: [address] (two) Medical times Branch daily. topiramate 2022-0 Yes [id number] 50mg Take 2 [facility] 25 mg 5-16 tablets by ity of tablet 00:00: [address] (two) Medical times Branch daily. topiramate 2-0 Yes [id number] 50mg Take 2 [facility] 25 mg 5-16 tablets by ity of tablet 00:00: mouth 2 (two) Medical times Branch daily. topiramate 2022-0 Yes [id number] 50mg Take 2 [facility] 25 mg 5-16 tablets by ity of tablet 00:00: mouth 2 (two) Medical times Branch daily. SUMAtriptan 2-0 Yes [id number] 50mg Take 1 [facility] 50 mg 5-16 tablet by ity of tablet 00:00: mouth as [place] 00 needed for Medical Migraine. Branch topiramate 2-0 Yes [id number] 50mg Take 2 [facility] 25 mg 5-16 tablets by ity of tablet 00:00: mouth 2 (two) Medical times Branch daily. SUMAtriptan 2-0 Yes [id number] 50mg Take 1 [facility] 50 mg 5-16 tablet by ity of tablet 00:00: mouth as [place] 00 needed for Medical Migraine. Branch topiramate 2-0 Yes [id number] 50mg Take 2 [facility] 25 mg 5-16 tablets by ity of tablet 00:00: mouth (two) Medical times Branch daily. SUMAtriptan 2-0 Yes [id number] 50mg Take 1 [facility] 50 mg 5-16 tablet by ity of tablet 00:00: mouth as [place] 00 needed for Medical Migraine. Branch topiramate 2-0 Yes [id number] 50mg Take 2 [facility] 25 mg 5-16 tablets by ity of tablet 00:00: mouth 2 (two) Medical times Branch daily. SUMAtriptan 2-0 Yes [id number] 50mg Take 1 [facility] 50 mg 5-16 tablet by ity of tablet 00:00: mouth as [place] 00 needed for Medical Migraine. Branch topiramate 2-0 Yes [id number] 50mg Take 2 [facility] 25 mg 5-16 tablets by ity of tablet 00:00: mouth 2 (two) Medical times Branch daily. SUMAtriptan 2022-0 Yes [id number] 50mg Take 1 [facility] 50 mg 5-16 tablet by ity of tablet 00:00: mouth as [place] 00 needed for Medical Migraine. Branch topiramate 2-0 Yes [id number] 50mg Take 2 [facility] 25 mg 5-16 tablets by ity of tablet 00:00: mouth 2 (two) Medical times Branch daily. SUMAtriptan 2022-0 Yes [id number] 50mg Take 1 [facility] 50 mg 5-16 tablet by ity of tablet 00:00: mouth as 00 needed for Medical Migraine. Branch topiramate 2021-0 Yes [id number] 50mg Take 2 [facility] 25 mg 5-16 tablets by ity of tablet 00:00: mouth 2 [place] 00 (two) Medical times Branch daily. topiramate 2021-0 Yes [id number] 50mg Take 2 [facility] 25 [facility] 5-16 tablets by [facility] tablet 00:00: mouth 2 00 (two) [facility] times [facility] daily. topiramate 2021-0 Yes [id number] 50mg Take 2 [facility] 25 mg 5-16 tablets by [facility] tablet 00:00: mouth 2 (two) [facility] times [facility] daily. topiramate 2021-0 Yes [id number] 50mg Take 2 [facility] 25 mg 5-16 tablets by [facility] tablet 00:00: mouth 2 00 (two) [facility] times [facility] daily. topiramate 2021-0 Yes [id number] 50mg Take 2 [facility] 25 mg 5-16 tablets by [facility] tablet 00:00: mouth 2 [place] (two) Medical times [facility] daily. topiramate 2021-0 Yes [id number] 50mg Take 2 [facility] 25 mg 5-16 tablets by [facility] tablet 00:00: mouth 2 (two) Medical times [facility] daily. topiramate 2021-0 2021- No [id number] 50mg Take 2 [facility] 25 mg 5-16 09-01 tablets by [facility] tablet 00:00: 00:00 mouth 2 [place] 00 :00 (two) Medical times [facility] daily. SUMAtriptan 2021-0 2021- No [id number] 50mg Take 1 [facility] 50 mg 5-16 [...] Dose to [facility] 00:00: [facility] [place] 00 before Medical meals. Branch ALCOHOL 2021-0 Yes 1{dose} Apply 1 [facility] ers PADS PadM 5-08 Dose to [facility] 00:00: [facility] [place] 00 before Medical meals. [facility] ALCOHOL 2021-0 Yes 1{dose} Apply 1 [facility] PADS PadM 5-08 Dose to [facility] 00:00: [facility] [place] 00 before Medical meals. [facility] ALCOHOL 2021-0 Yes 1{dose} Apply 1 [facility] ers PADS PadM 5-08 Dose to [facility] 00:00: [facility] [place] 00 before Medical meals. [facility] ALCOHOL 2021-0 Yes 1{dose} Apply 1 [facility] PADS PadM 5-08 Dose to [facility] 00:00: [facility] [place] 00 before Medical meals. [facility] ALCOHOL 2021-0 Yes 1{dose} Apply 1 [facility] PADS PadM 5-08 Dose to [facility] of 00:00: area(s) [place] 00 before Medical meals. Branch ALCOHOL 2021-0 Yes 1{dose} Apply 1 [facility] ers PADS PadM 5-08 Dose to [facility] 00:00: [facility] [place] 00 before Medical meals. [facility] ALCOHOL 2021-0 Yes 1{dose} Apply 1 [facility] PADS PadM 5-08 Dose to [facility] 00:00: [facility] [place] 00 before Medical meals. [facility] ALCOHOL 2021-0 Yes 1{dose} Apply 1 [facility] PADS PadM 5-08 Dose to [facility] of 00:00: area(s) [place] 00 before Medical meals. Branch ALCOHOL Yes 1{dose} Apply 1 [facility] PADS PadM 5-08 Dose to [facility] 00:00: [facility] [place] 00 before Medical meals. [facility] ALCOHOL Yes 1{dose} Apply 1 [facility] PADS PadM 5-08 Dose to [facility] 00:00: [facility] [place] 00 before Medical meals. [facility] ALCOHOL Yes 1{dose} Apply 1 [facility] ers PADS PadM 5-08 Dose to [facility] of 00:00: area(s) [place] 00 before Medical meals. [facility] ALCOHOL Yes 1{dose} Apply 1 [facility] PADS PadM 5-08 Dose to [facility] 00:00: [facility] [place] 00 before Medical meals. [facility] ALCOHOL Yes 1{dose} Apply 1 [facility] ers PADS PadM 5-08 Dose to [facility] 00:00: [facility] [place] 00 before Medical meals. [facility] ALCOHOL Yes 1{dose} Apply 1 [facility] ers PADS PadM 5-08 Dose to [facility] 00:00: [facility] [place] 00 before Medical meals. [facility] ALCOHOL Yes 1{dose} Apply 1 [facility] ers PADS PadM 5-08 Dose to [facility] 00:00: [facility] [place] 00 before Medical meals. [facility] ALCOHOL Yes 1{dose} Apply 1 [facility] ers PADS PadM 5-08 Dose to [facility] 00:00: [facility] [place] 00 before Medical meals. Branch ALCOHOL 2021- No 1{dose} Apply 1 [facility] vers PADS PadM 5-08 -22 Dose to [facility] 00:00: 00:00 [facility] [place] 00 :00 before Medical meals. Branch ALCOHOL 2021- No 1{dose} Apply 1 [facility] vers PADS PadM 5-08 -22 Dose to [facility] 00:00: 00:00 [facility] [place] 00 :00 before Medical meals. [facility] ALCOHOL 2021- No 1{dose} Apply 1 [facility] vers PADS PadM 5-08 -22 Dose to [facility] 00:00: 00:00 [facility] [place] 00 :00 before Medical meals. Branch pregabalin 2022-0 Yes [id number] 150mg Take 1 [facility] 150 mg 4-29 capsule by [facility] capsule 00:00: mouth 3 (three) Medical times [facility] daily. busPIRone 2021-0 Yes [id number] 20mg Take 2 [facility] [place] 10 mg 4-29 tablets by [facility] tablet 00:00: mouth (two) Medical times [facility] daily. citalopram 2021-0 Yes [id number] 40mg Take 1 [facility] 40 mg 4-29 tablet by [facility] tablet 00:00: mouth 00 daily. Medical [facility] pregabalin 2021-0 Yes [id number] 150mg Take 1 [facility] 150 mg 4-29 capsule by [facility] capsule 00:00: mouth (three) Medical times [facility] daily. busPIRone 2021-0 Yes [id number] 20mg Take 2 [facility] [place] 10 mg 4-29 tablets by [facility] tablet 00:00: mouth (two) Medical times [facility] daily. citalopram 2021-0 Yes [id number] 40mg Take 1 [facility] 40 mg 4-29 tablet by [facility] tablet 00:00: mouth daily. [facility] pregabalin 2021-0 Yes [id number] 150mg Take 1 [facility] 150 mg 4-29 capsule by [facility] capsule 00:00: mouth (three) Medical times [facility] daily. busPIRone 2021-0 Yes [id number] 20mg Take 2 [facility] [place] 10 mg 4-29 tablets by [facility] tablet 00:00: mouth (two) Medical times [facility] daily. citalopram 2021-0 Yes [id number] 40mg Take 1 [facility] 40 mg 4-29 tablet by [facility] tablet 00:00: mouth 00 daily. Medical [facility] pregabalin 2021-0 Yes [id number] 150mg Take 1 [facility] 150 mg 4-29 capsule by [facility] capsule 00:00: mouth 3 (three) Medical times [facility] daily. busPIRone 2021-0 Yes [id number] 20mg Take 2 [facility] [place] 10 mg 4-29 tablets by [facility] tablet 00:00: mouth (two) Medical times [facility] daily. citalopram 2021-0 Yes [id number] 40mg Take 1 [facility] 40 mg 4-29 tablet by [facility] tablet 00:00: mouth 00 daily. Medical [facility] pregabalin 2021-0 Yes [id number] 150mg Take 1 [facility] 150 mg 4-29 capsule by [facility] capsule 00:00: mouth 3 (three) Medical times [facility] daily. busPIRone 2021-0 Yes [id number] 20mg Take 2 [facility] [place] 10 mg 4-29 tablets by [facility] tablet 00:00: mouth (two) Medical times [facility] daily. citalopram 2021-0 Yes [id number] 40mg Take 1 [facility] 40 mg 4-29 tablet by [facility] tablet 00:00: mouth 00 daily. [facility] pregabalin 2021-0 Yes [id number] 150mg Take 1 [facility] 150 mg 4-29 capsule by [facility] capsule 00:00: mouth 3 (three) Medical times [facility] daily. busPIRone 2021-0 Yes [id number] 20mg Take 2 [facility] [place] 10 mg 4-29 tablets by [facility] tablet 00:00: mouth (two) Medical times [facility] daily. citalopram 2021-0 Yes [id number] 40mg Take 1 [facility] 40 mg 4-29 tablet by [facility] tablet 00:00: mouth 00 daily. [facility] pregabalin 2021-0 Yes [id number] 150mg Take 1 [facility] 150 mg 4-29 capsule by [facility] capsule 00:00: mouth (three) Medical times [facility] daily. busPIRone 2021-0 Yes [id number] 20mg Take 2 [facility] [place] 10 mg 4-29 tablets by [facility] tablet 00:00: mouth (two) Medical times [facility] daily. citalopram 2021-0 Yes [id number] 40mg Take 1 [facility] 40 mg 4-29 tablet by [facility] tablet 00:00: mouth 00 daily. [facility] pregabalin 2021-0 Yes [id number] 150mg Take 1 [facility] 150 mg 4-29 capsule by [facility] of capsule 00:00: mouth 3 (three) Medical times [facility] daily. busPIRone 2021-0 Yes [id number] 20mg Take 2 [facility] [place] 10 mg 4-29 tablets by [facility] tablet 00:00: mouth 2 (two) Medical times [facility] daily. citalopram 2021-0 Yes [id number] 40mg Take 1 [facility] 40 mg 4-29 tablet by [facility] tablet 00:00: mouth 00 daily. [facility] pregabalin 2021-0 Yes [id number] 150mg Take 1 [facility] 150 mg 4-29 capsule by [facility] of capsule 00:00: mouth 3 (three) Medical times [facility] daily. busPIRone 2021-0 Yes [id number] 20mg Take 2 [facility] [place] 10 mg 4-29 tablets by [facility] tablet 00:00: mouth (two) Medical times [facility] daily. citalopram 2021-0 Yes [id number] 40mg Take 1 [facility] 40 mg 4-29 tablet by [facility] tablet 00:00: mouth 00 daily. [facility] pregabalin 2021-0 Yes [id number] 150mg Take 1 [facility] 150 mg 4-29 capsule by [facility] capsule 00:00: mouth (three) Medical times [facility] daily. busPIRone 2021-0 Yes [id number] 20mg Take 2 [facility] 10 mg 4-29 tablets by [facility] tablet 00:00: mouth (two) Medical times [facility] daily. citalopram 2021-0 Yes [id number] 40mg Take 1 [facility] 40 mg 4-29 tablet by [facility] tablet 00:00: mouth 00 daily. [facility] pregabalin 2021-0 Yes [id number] 150mg Take 1 [facility] 150 mg 4-29 capsule by [facility] capsule 00:00: mouth 3 (three) Medical times [facility] daily. busPIRone 2021-0 Yes [id number] 20mg Take 2 [facility] 10 mg 4-29 tablets by [facility] tablet 00:00: mouth (two) Medical times [facility] daily. citalopram 2021-0 Yes [id number] 40mg Take 1 [facility] 40 mg 4-29 tablet by [facility] tablet 00:00: mouth 00 daily. [facility] pregabalin 2021-0 Yes [id number] 150mg Take 1 [facility] 150 mg 4-29 capsule by [facility] capsule 00:00: mouth 3 (three) Medical times [facility] daily. busPIRone 2021-0 Yes [id number] 20mg Take 2 [facility] [place] 10 mg 4-29 tablets by [facility] tablet 00:00: mouth 2 (two) Medical times [facility] daily. citalopram 2021-0 Yes [id number] 40mg Take 1 [facility] 40 mg 4-29 tablet by [facility] tablet 00:00: mouth daily. [facility] pregabalin 2021-0 Yes [id number] 150mg Take 1 [facility] 150 mg 4-29 capsule by [facility] capsule 00:00: mouth 3 (three) Medical times [facility] daily. busPIRone 2021-0 Yes [id number] 20mg Take 2 [facility] 10 mg 4-29 tablets by [facility] of tablet 00:00: mouth (two) Medical times [facility] daily. citalopram 2021-0 Yes [id number] 40mg Take 1 [facility] 40 mg 4-29 tablet by [facility] tablet 00:00: mouth daily. [facility] pregabalin 2021-0 Yes [id number] 150mg Take 1 [facility] 150 mg 4-29 capsule by [facility] of capsule 00:00: mouth 3 (three) Medical times [facility] daily. busPIRone 2021-0 Yes [id number] 20mg Take 2 [facility] 10 mg 4-29 tablets by [facility] tablet 00:00: mouth (two) Medical times [facility] daily. citalopram 2021-0 Yes [id number] 40mg Take 1 [facility] 40 mg 4-29 tablet by [facility] tablet 00:00: mouth daily. [facility] pregabalin 2021-0 Yes [id number] 150mg Take 1 [facility] 150 mg 4-29 capsule by [facility] capsule 00:00: mouth 3 (three) Medical times [facility] daily. busPIRone 2-0 Yes [id number] 20mg Take 2 [facility] 10 mg 4-29 tablets by [facility] tablet 00:00: mouth 2 (two) Medical times [facility] daily. citalopram 2-0 Yes [id number] 40mg Take 1 [facility] 40 mg 4-29 tablet by [facility] tablet 00:00: mouth daily. [facility] pregabalin 2021-0 Yes [id number] 150mg Take 1 [facility] 150 mg 4-29 capsule by [facility] of capsule 00:00: mouth 3 (three) Medical times [facility] daily. busPIRone 2021-0 Yes [id number] 20mg Take 2 [facility] 10 mg 4-29 tablets by [facility] tablet 00:00: mouth (two) Medical times [facility] daily. citalopram 2021-0 Yes [id number] 40mg Take 1 [facility] 40 mg 4-29 tablet by [facility] tablet 00:00: mouth 00 daily. [facility] pregabalin 2021-0 Yes [id number] 150mg Take 1 [facility] 150 mg 4-29 capsule by [facility] capsule 00:00: mouth (three) Medical times [facility] daily. busPIRone 2021-0 Yes [id number] 20mg Take 2 [facility] 10 mg 4-29 tablets by [facility] tablet 00:00: mouth (two) Medical times [facility] daily. citalopram 2021-0 Yes [id number] 40mg Take 1 [facility] 40 mg 4-29 tablet by [facility] tablet 00:00: mouth daily. [facility] pregabalin 2021-0 Yes [id number] 150mg Take 1 [facility] 150 mg 4-29 capsule by [facility] capsule 00:00: mouth (three) Medical times [facility] daily. busPIRone 2021-0 Yes [id number] 20mg Take 2 [facility] [place] 10 mg 4-29 tablets by [facility] tablet 00:00: mouth (two) Medical times [facility] daily. citalopram 2021-0 Yes [id number] 40mg Take 1 [facility] 40 mg 4-29 tablet by [facility] tablet 00:00: mouth 00 daily. [facility] pregabalin 2021-0 Yes [id number] 150mg Take 1 [facility] 150 mg 4-29 capsule by [facility] of capsule 00:00: mouth (three) Medical times [facility] daily. busPIRone 2021-0 Yes [id number] 20mg Take 2 [facility] [place] 10 mg 4-29 tablets by [facility] tablet 00:00: mouth (two) Medical times [facility] daily. citalopram 2021-0 Yes [id number] 40mg Take 1 [facility] 40 mg 4-29 tablet by [facility] tablet 00:00: mouth 00 daily. [facility] pregabalin 2021-0 Yes [id number] 150mg Take 1 [facility] 150 mg 4-29 capsule by [facility] capsule 00:00: mouth 3 (three) Medical times [facility] daily. busPIRone 2021-0 Yes [id number] 20mg Take 2 [facility] [place] 10 mg 4-29 tablets by [facility] tablet 00:00: mouth (two) Medical times [facility] daily. citalopram 2021-0 Yes [id number] 40mg Take 1 [facility] 40 mg 4-29 tablet by [facility] tablet 00:00: mouth 00 daily. [facility] pregabalin 2021-0 Yes [id number] 150mg Take 1 [facility] 150 mg 4-29 capsule by [facility] capsule 00:00: mouth (three) Medical times [facility] daily. busPIRone 2021-0 Yes [id number] 20mg Take 2 [facility] 10 mg 4-29 tablets by [facility] tablet 00:00: mouth (two) Medical times [facility] daily. citalopram 2021-0 Yes [id number] 40mg Take 1 [facility] 40 mg 4-29 tablet by [facility] tablet 00:00: mouth daily. [facility] pregabalin 2021-0 Yes [id number] 150mg Take 1 [facility] 150 mg 4-29 capsule by [facility] of capsule 00:00: mouth (three) Medical times [facility] daily. busPIRone 2021-0 Yes [id number] 20mg Take 2 [facility] [place] 10 mg 4-29 tablets by [facility] tablet 00:00: mouth (two) Medical times [facility] daily. citalopram 2021-0 Yes [id number] 40mg Take 1 [facility] 40 mg 4-29 tablet by [facility] tablet 00:00: mouth 00 daily. [facility] pregabalin 2021-0 Yes [id number] 150mg Take 1 [facility] 150 mg 4-29 capsule by [facility] capsule 00:00: mouth 3 (three) Medical times [facility] daily. busPIRone 2021-0 Yes [id number] 20mg Take 2 [facility] 10 mg 4-29 tablets by [facility] tablet 00:00: mouth (two) Medical times [facility] daily. citalopram 2021-0 Yes [id number] 40mg Take 1 [facility] 40 mg 4-29 tablet by [facility] tablet 00:00: mouth 00 daily. [facility] pregabalin 2021-0 Yes [id number] 150mg Take 1 [facility] 150 mg 4-29 capsule by [facility] capsule 00:00: mouth 3 (three) Medical times [facility] daily. busPIRone 2021-0 Yes [id number] 20mg Take 2 [facility] 10 mg 4-29 tablets by [facility] tablet 00:00: mouth (two) Medical times [facility] daily. citalopram 2021-0 Yes [id number] 40mg Take 1 [facility] 40 mg 4-29 tablet by [facility] tablet 00:00: mouth daily. [facility] pregabalin 2021-0 Yes [id number] 150mg Take 1 [facility] 150 mg 4-29 capsule by [facility] capsule 00:00: mouth (three) Medical times [facility] daily. busPIRone 2021-0 Yes [id number] 20mg Take 2 [facility] [place] 10 mg 4-29 tablets by [facility] tablet 00:00: mouth (two) Medical times [facility] daily. citalopram 2021-0 Yes [id number] 40mg Take 1 [facility] 40 mg 4-29 tablet by [facility] tablet 00:00: mouth daily. [facility] pregabalin 2021-0 Yes [id number] 150mg Take 1 [facility] 150 mg 4-29 capsule by [facility] of capsule 00:00: mouth (three) Medical times [facility] daily. busPIRone 2-0 Yes [id number] 20mg Take 2 [facility] 10 mg 4-29 tablets by [facility] of tablet 00:00: mouth (two) Medical times [facility] daily. citalopram 2-0 Yes [id number] 40mg Take 1 [facility] 40 mg 4-29 tablet by [facility] of tablet 00:00: mouth 00 daily. [facility] pregabalin 2021-0 Yes [id number] 150mg Take 1 [facility] 150 mg 4-29 capsule by [facility] of capsule 00:00: mouth (three) Medical times [facility] daily. busPIRone 2021-0 Yes [id number] 20mg Take 2 [facility] 10 mg 4-29 tablets by [facility] of tablet 00:00: mouth (two) Medical times [facility] daily. citalopram 2021-0 Yes [id number] 40mg Take 1 [facility] 40 mg 4-29 tablet by [facility] of tablet 00:00: mouth daily. [facility] pregabalin 2021-0 Yes [id number] 150mg Take 1 [facility] 150 mg 4-29 capsule by [facility] of capsule 00:00: mouth 3 (three) Medical times [facility] daily. busPIRone 2021-0 Yes [id number] 20mg Take 2 [facility] 10 mg 4-29 tablets by [facility] of tablet 00:00: mouth (two) Medical times [facility] daily. citalopram 2021-0 Yes [id number] 40mg Take 1 [facility] 40 mg 4-29 tablet by [facility] of tablet 00:00: mouth daily. [facility] pregabalin 2021-0 Yes [id number] 150mg Take 1 [facility] 150 mg 4-29 capsule by [facility] of capsule 00:00: mouth 3 (three) Medical times [facility] daily. busPIRone 2021-0 Yes [id number] 20mg Take 2 [facility] 10 mg 4-29 tablets by [facility] of tablet 00:00: mouth (two) Medical times [facility] daily. citalopram 2021-0 Yes [id number] 40mg Take 1 [facility] 40 mg 4-29 tablet by [facility] of tablet 00:00: mouth daily. [facility] pregabalin 2021-0 Yes [id number] 150mg Take 1 [facility] 150 mg 4-29 capsule by [facility] of capsule 00:00: mouth 3 (three) Medical times [facility] daily. busPIRone 2021-0 Yes [id number] 20mg Take 2 [facility] 10 mg 4-29 tablets by [facility] of tablet 00:00: mouth (two) Medical times [facility] daily. citalopram 2021-0 Yes [id number] 40mg Take 1 [facility] 40 mg 4-29 tablet by [facility] of tablet 00:00: mouth 00 daily. [facility] pregabalin 2021-0 Yes [id number] 150mg Take 1 [facility] 150 mg 4-29 capsule by [facility] of capsule 00:00: mouth 3 (three) Medical times [facility] daily. busPIRone 2-0 Yes [id number] 20mg Take 2 [facility] 10 mg 4-29 tablets by [facility] of tablet 00:00: mouth (two) Medical times [facility] daily. citalopram 2021-0 Yes [id number] 40mg Take 1 [facility] 40 mg 4-29 tablet by [facility] of tablet 00:00: mouth 00 daily. [facility] pregabalin 2021-0 Yes [id number] 150mg Take 1 [facility] 150 mg 4-29 capsule by [facility] of capsule 00:00: mouth (three) Medical times [facility] daily. busPIRone 2021-0 Yes [id number] 20mg Take 2 [facility] 10 mg 4-29 tablets by [facility] of tablet 00:00: mouth (two) Medical times [facility] daily. citalopram 2021-0 Yes [id number] 40mg Take 1 [facility] 40 mg 4-29 tablet by [facility] of tablet 00:00: mouth daily. [facility] pregabalin 2021-0 Yes [id number] 150mg Take 1 [facility] 150 mg 4-29 capsule by [facility] of capsule 00:00: mouth (three) Medical times [facility] daily. busPIRone 2021-0 Yes [id number] 20mg Take 2 [facility] 10 mg 4-29 tablets by [facility] of tablet 00:00: mouth (two) Medical times [facility] daily. citalopram 2021-0 Yes [id number] 40mg Take 1 [facility] 40 mg 4-29 tablet by [facility] of tablet 00:00: mouth daily. [facility] pregabalin 2021-0 Yes [id number] 150mg Take 1 [facility] 150 mg 4-29 capsule by [facility] of capsule 00:00: mouth (three) Medical times [facility] daily. busPIRone 2-0 Yes [id number] 20mg Take 2 [facility] 10 mg 4-29 tablets by [facility] of tablet 00:00: mouth (two) Medical times [facility] daily. citalopram 2-0 Yes [id number] 40mg Take 1 [facility] 40 mg 4-29 tablet by [facility] of tablet 00:00: mouth [place] 00 daily. [facility] pregabalin 2021-0 Yes [id number] 150mg Take 1 [facility] 150 mg 4-29 capsule by [facility] of capsule 00:00: mouth 3 (three) Medical times [facility] daily. busPIRone 2021-0 Yes [id number] 20mg Take 2 [facility] 10 mg 4-29 tablets by [facility] of tablet 00:00: mouth 2 (two) Medical times [facility] daily. citalopram 2021-0 Yes [id number] 40mg Take 1 [facility] 40 mg 4-29 tablet by [facility] of tablet 00:00: mouth 00 daily. [facility] pregabalin 2021-0 Yes [id number] 150mg Take 1 [facility] 150 mg 4-29 capsule by [facility] of capsule 00:00: mouth 3 (three) Medical times [facility] daily. busPIRone 2021-0 Yes [id number] 20mg Take 2 [facility] 10 mg 4-29 tablets by [facility] of tablet 00:00: mouth 2 (two) Medical times [facility] daily. citalopram 2021-0 Yes [id number] 40mg Take 1 [facility] 40 mg 4-29 tablet by [facility] of tablet 00:00: mouth 00 daily. [facility] pregabalin 2021-0 Yes [id number] 150mg Take 1 [facility] 150 mg 4-29 capsule by [facility] of capsule 00:00: mouth 3 (three) Medical times [facility] daily. busPIRone 2021-0 Yes [id number] 20mg Take 2 [facility] 10 mg 4-29 tablets by [facility] of tablet 00:00: mouth 2 (two) Medical times [facility] daily. citalopram 2021-0 Yes [id number] 40mg Take 1 [facility] 40 mg 4-29 tablet by [facility] tablet 00:00: mouth 00 daily. [facility] citalopram 2021-0 Yes [id number] 40mg Take 1 [facility] 40 mg 4-29 tablet by [facility] tablet 00:00: mouth [place] 00 daily. [facility] citalopram 2021-0 Yes [id number] 40mg Take 1 [facility] 40 mg 4-29 tablet by [facility] of tablet 00:00: mouth [place] 00 daily. [facility] citalopram 0 Yes [id number] 40mg Take 1 [facility] 40 mg 4-29 tablet by [facility] of tablet 00:00: mouth [place] 00 daily. [facility] citalopram 0 Yes [id number] 40mg Take 1 [facility] 40 mg 4-29 tablet by [facility] of tablet 00:00: mouth [place] 00 daily. [facility] citalopram 0 Yes [id number] 40mg Take 1 [facility] 40 mg 4-29 tablet by [facility] of tablet 00:00: mouth [place] 00 daily. [facility] citalopram 0 Yes [id number] 40mg Take 1 [facility] 40 mg 4-29 tablet by [facility] of tablet 00:00: mouth [place] 00 daily. [facility] citalopram 0 Yes [id number] 40mg Take 1 [facility] 40 mg 4-29 tablet by [facility] of tablet 00:00: mouth [place] 00 daily. [facility] citalopram 0 Yes [id number] 40mg Take 1 [facility] 40 mg 4-29 tablet by [facility] of tablet 00:00: mouth [place] 00 daily. [facility] citalopram 0 Yes [id number] 40mg Take 1 [facility] 40 mg 4-29 tablet by [facility] of tablet 00:00: mouth [place] 00 daily. [facility] citalopram 0 Yes [id number] 40mg Take 1 [facility] 40 mg 4-29 tablet by [facility] of tablet 00:00: mouth [place] 00 daily. [facility] citalopram 0 Yes [id number] 40mg Take 1 [facility] 40 mg 4-29 tablet by [facility] of tablet 00:00: mouth [place] 00 daily. [facility] citalopram 0 Yes [id number] 40mg Take 1 [facility] 40 mg 4-29 tablet by [facility] of tablet 00:00: mouth [place] 00 daily. [facility] citalopram 0 Yes [id number] 40mg Take 1 [facility] 40 mg 4-29 tablet by [facility] of tablet 00:00: mouth [place] 00 daily. [facility] citalopram 0 Yes [id number] 40mg Take 1 [facility] 40 mg 4-29 tablet by [facility] of tablet 00:00: mouth [place] 00 daily. [facility] citalopram 0 Yes [id number] 40mg Take 1 [facility] 40 mg 4-29 tablet by [facility] of tablet 00:00: mouth [place] 00 daily. [facility] citalopram 0 Yes [id number] 40mg Take 1 [facility] 40 mg 4-29 tablet by [facility] of tablet 00:00: mouth [place] 00 daily. [facility] citalopram 0 Yes [id number] 40mg Take 1 [facility] 40 mg 4-29 tablet by [facility] of tablet 00:00: mouth [place] 00 daily. [facility] citalopram 0 Yes [id number] 40mg Take 1 [facility] 40 mg 4-29 tablet by [facility] of tablet 00:00: mouth [place] 00 daily. [facility] citalopram 0 Yes [id number] 40mg Take 1 [facility] 40 mg 4-29 tablet by [facility] of tablet 00:00: mouth [place] 00 daily. [facility] citalopram 0 Yes [id number] 40mg Take 1 [facility] 40 mg 4-29 tablet by [facility] of tablet 00:00: mouth [place] 00 daily. [facility] citalopram 0 Yes [id number] 40mg Take 1 [facility] 40 mg 4-29 tablet by [facility] of tablet 00:00: mouth [place] 00 daily. [facility] pregabalin 0 Yes [id number] 150mg Take 1 [facility] 150 mg 4-29 capsule by [facility] of capsule 00:00: mouth 3 00 (three) Medical times [facility] daily. busPIRone 0 Yes [id number] 20mg Take 2 [facility] 10 mg 4-29 tablets by [facility] tablet 00:00: mouth 2 00 (two) Medical times [facility] daily. citalopram 0 Yes [id number] 40mg Take 1 [facility] 40 mg 4-29 tablet by [facility] tablet 00:00: mouth [place] 00 daily. [facility] pregabalin 0 Yes [id number] 150mg Take 1 [facility] 150 mg 4-29 capsule by [facility] of capsule 00:00: mouth 3 [place] 00 (three) Medical times [facility] daily. busPIRone 2021-0 Yes [id number] 20mg Take 2 [facility] 10 mg 4-29 tablets by [facility] of tablet 00:00: mouth (two) [facility] times [facility] daily. citalopram 2021-0 Yes [id number] 40mg Take 1 [facility] 40 mg 4-29 tablet by [facility] tablet 00:00: mouth daily. [facility] pregabalin 2021-0 Yes [id number] 150mg Take 1 [facility] 150 mg 4-29 capsule by [facility] of capsule 00:00: mouth (three) Medical times [facility] daily. busPIRone 2021-0 Yes [id number] 20mg Take 2 [facility] 10 mg 4-29 tablets by [facility] tablet 00:00: mouth (two) [facility] times [facility] daily. citalopram 2021-0 Yes [id number] 40mg Take 1 [facility] 40 mg 4-29 tablet by [facility] tablet 00:00: mouth daily. [facility] pregabalin 2021-0 Yes [id number] 150mg Take 1 [facility] 150 mg 4-29 capsule by [facility] of capsule 00:00: mouth (three) Medical times [facility] daily. busPIRone 2021-0 Yes [id number] 20mg Take 2 [facility] 10 mg 4-29 tablets by [facility] tablet 00:00: mouth (two) [facility] times [facility] daily. citalopram 2021-0 Yes [id number] 40mg Take 1 [facility] 40 mg 4-29 tablet by [facility] tablet 00:00: mouth daily. [facility] pregabalin 2021-0 Yes [id number] 150mg Take 1 [facility] 150 mg 4-29 capsule by [facility] capsule 00:00: mouth (three) [facility] times [facility] daily. busPIRone 2021-0 Yes [id number] 20mg Take 2 [facility] 10 mg 4-29 tablets by [facility] tablet 00:00: mouth (two) [facility] times [facility] daily. citalopram 2021-0 Yes [id number] 40mg Take 1 [facility] 40 mg 4-29 tablet by [facility] tablet 00:00: mouth 00 daily. [facility] pregabalin 2021-0 Yes [id number] 150mg Take 1 [facility] 150 mg 4-29 capsule by [facility] of capsule 00:00: mouth 3 (three) [facility] times [facility] daily. busPIRone 2021-0 Yes [id number] 20mg Take 2 [facility] 10 mg 4-29 tablets by [facility] tablet 00:00: mouth (two) [facility] times [facility] daily. citalopram 2021-0 Yes [id number] 40mg Take 1 [facility] 40 mg 4-29 tablet by [facility] tablet 00:00: mouth daily. [facility] pregabalin 2021-0 Yes [id number] 150mg Take 1 [facility] 150 mg 4-29 capsule by [facility] capsule 00:00: mouth 3 (three) Medical times [facility] daily. busPIRone 2021-0 Yes [id number] 20mg Take 2 [facility] 10 mg 4-29 tablets by [facility] tablet 00:00: mouth (two) [facility] times [facility] daily. citalopram 2021-0 Yes [id number] 40mg Take 1 [facility] 40 mg 4-29 tablet by [facility] tablet 00:00: mouth daily. [facility] pregabalin 2021-0 Yes [id number] 150mg Take 1 [facility] 150 mg 4-29 capsule by [facility] capsule 00:00: mouth (three) Medical times [facility] daily. busPIRone 2021-0 Yes [id number] 20mg Take 2 [facility] 10 mg 4-29 tablets by [facility] of tablet 00:00: mouth (two) Medical times Branch daily. citalopram 2021-0 Yes [id number] 40mg Take 1 [facility] nivers 40 mg 4-29 tablet by [facility]y of tablet 00:00: mouth daily. [facility] pregabalin 2021-0 Yes [id number] 150mg Take 1 [facility] 150 mg 4-29 capsule by [facility] of capsule 00:00: mouth (three) Medical times Branch daily. busPIRone 2-0 Yes [id number] 20mg Take 2 [facility] [place] 10 mg 4-29 tablets by [facility] of tablet 00:00: mouth (two) [facility] times [facility] daily. citalopram 2-0 Yes [id number] 40mg Take 1 [facility] 40 mg 4-29 tablet by [facility]y of tablet 00:00: mouth 00 daily. [facility] pregabalin 0 Yes [id number] 150mg Take 1 [facility] 150 mg 4-29 capsule by [facility] of capsule 00:00: mouth 3 00 (three) Medical times Branch daily. busPIRone 2021-0 Yes [id number] 20mg Take 2 [facility] [place] 10 mg 4-29 tablets by [facility] of tablet 00:00: mouth 2 00 (two) Medical times Branch daily. citalopram 2021-0 Yes [id number] 40mg Take 1 [facility] 40 mg 4-29 tablet by [facility]y of tablet 00:00: mouth [place] 00 daily. [facility] pregabalin 0 Yes [id number] 150mg Take 1 [facility] 150 mg 4-29 capsule by [facility] of capsule 00:00: mouth 3 00 (three) Medical times Branch daily. busPIRone 0 Yes [id number] 20mg Take 2 [facility] [place] 10 mg 4-29 tablets by [facility]y of tablet 00:00: mouth 2 00 (two) Medical times [facility] daily. citalopram 0 Yes [id number] 40mg Take 1 [facility] 40 mg 4-29 tablet by [facility]y of tablet 00:00: mouth [place] 00 daily. [facility] pregabalin 2021- No [id number] 150mg Take 1 [facility] 150 mg 4-29 10-13 capsule by ity of capsule 00:00: 00:00 mouth 3 [place] 00 :00 (three) Medical times Branch daily. busPIRone 2021-0 2- No [id number] 20mg Take 2 [facility] n[facility] 10 mg 4-29 10-13 tablets by ity of tablet 00:00: 00:00 mouth 2 [place] 00 :00 (two) Medical times Branch daily. pantoprazol 2021-0 Yes [id number] 40mg Take 1 [facility] e 40 mg EC 4-04 tablet by ity of tablet 00:00: mouth [place] 00 daily. [facility] pantoprazol 2021-0 Yes [id number] 40mg Take 1 [facility] e 40 mg EC 4-04 tablet by ity of tablet 00:00: mouth [place] 00 daily. [facility] pantoprazol 2021-0 Yes [id number] 40mg Take 1 [facility] e 40 mg EC 4-04 tablet by ity of tablet 00:00: mouth [place] 00 daily. [facility] pantoprazol 2021-0 Yes [id number] 40mg Take 1 [facility] e 40 mg EC 4-04 tablet by ity of tablet 00:00: mouth [place] 00 daily. [facility] pantoprazol 2021-0 Yes [id number] 40mg Take 1 [facility] e 40 mg EC 4-04 tablet by ity of tablet 00:00: mouth [place] 00 daily. [facility] pantoprazol 2021-0 Yes [id number] 40mg Take 1 [facility] e 40 mg EC 4-04 tablet by ity of tablet 00:00: mouth [place] 00 daily. [facility] pantoprazol 2021-0 Yes [id number] 40mg Take 1 [facility] e 40 mg EC 4-04 tablet by ity of tablet 00:00: mouth [place] 00 daily. [facility] pantoprazol Yes [id number] 40mg Take 1 [facility] e 40 mg EC 4-04 tablet by ity of tablet 00:00: mouth [place] 00 daily. [facility] pantoprazol 2021-0 Yes [id number] 40mg Take 1 [facility] e 40 mg EC 4-04 tablet by ity of tablet 00:00: mouth [place] 00 daily. [facility] pantoprazol Yes [id number] 40mg Take 1 [facility] e 40 mg EC 4-04 tablet by ity of tablet 00:00: mouth [place] 00 daily. [facility] pantoprazol Yes [id number] 40mg Take 1 [facility] e 40 mg EC 4-04 tablet by ity of tablet 00:00: mouth [place] 00 daily. [facility] pantoprazol 2021-0 Yes [id number] 40mg Take 1 [facility] e 40 mg EC 4-04 tablet by ity of tablet 00:00: mouth [place] 00 daily. [facility] pantoprazol 2021-0 Yes [id number] 40mg Take 1 [facility] e 40 mg EC 4-04 tablet by ity of tablet 00:00: mouth [place] 00 daily. [facility] pantoprazol 2021-0 Yes [id number] 40mg Take 1 [facility] e 40 mg EC 4-04 tablet by ity of tablet 00:00: mouth [place] 00 daily. [facility] pantoprazol 2021-0 Yes [id number] 40mg Take 1 [facility] e 40 mg EC 4-04 tablet by ity of tablet 00:00: mouth [place] 00 daily. [facility] pantoprazol 2022-0 Yes [id number] 40mg Take 1 [facility] e 40 mg EC 4-04 tablet by ity of tablet 00:00: mouth [place] 00 daily. [facility] pantoprazol 2021-0 Yes [id number] 40mg Take 1 [facility] e 40 mg EC 4-04 tablet by ity of tablet 00:00: mouth [place] 00 daily. [facility] pantoprazol 0 Yes [id number] 40mg Take 1 [facility] e 40 mg EC 4-04 tablet by ity of tablet 00:00: mouth [place] 00 daily. [facility] pantoprazol Yes [id number] 40mg Take 1 [facility] e 40 mg EC 4-04 tablet by ity of tablet 00:00: mouth [place] 00 daily. [facility] pantoprazol Yes [id number] 40mg Take 1 [facility] e 40 mg EC 4-04 tablet by ity of tablet 00:00: mouth [place] 00 daily. [facility] pantoprazol Yes [id number] 40mg Take 1 [facility] e 40 mg EC 4-04 tablet by ity of tablet 00:00: mouth [place] 00 daily. [facility] pantoprazol Yes [id number] 40mg Take 1 [facility] e 40 mg EC 4-04 tablet by ity of tablet 00:00: mouth [place] 00 daily. [facility] pantoprazol Yes [id number] 40mg Take 1 [facility] e 40 mg EC 4-04 tablet by ity of tablet 00:00: mouth [place] 00 daily. [facility] pantoprazol 2021- Yes [id number] 40mg Take 1 [facility] e 40 mg EC 4-04 tablet by ity of tablet 00:00: mouth [place] 00 daily. [facility] pantoprazol 2021-0 Yes [id number] 40mg Take 1 [facility] e 40 mg EC 4-04 tablet by ity of tablet 00:00: mouth [place] 00 daily. [facility] pantoprazol 2021-0 Yes [id number] 40mg Take 1 [facility] e 40 mg EC 4-04 tablet by [facility]y of tablet 00:00: mouth [place] 00 daily. [facility] pantoprazol 0 Yes [id number] 40mg Take 1 [facility] e 40 mg EC 4-04 tablet by ity of tablet 00:00: mouth [place] 00 daily. [facility] pantoprazol 2021-0 Yes [id number] 40mg Take 1 [facility] e 40 mg EC 4-04 tablet by ity of tablet 00:00: mouth [place] 00 daily. [facility] pantoprazol 2-0 Yes [id number] 40mg Take 1 [facility] e 40 mg EC 4-04 tablet by ity of tablet 00:00: mouth [place] 00 daily. [facility] pantoprazol 2021-0 Yes [id number] 40mg Take 1 [facility] e 40 mg EC 4-04 tablet by ity of tablet 00:00: mouth [place] 00 daily. [facility] pantoprazol 2-0 2- No [id number] 40mg Take 1 [facility] e 40 mg EC 4-04 -16 tablet by ity of tablet 00:00: 00:00 mouth [place] 00 :00 daily. [facility] pantoprazol 2021-0 2- No [id number] 40mg Take 1 [facility] e 40 mg EC 4-04 -16 tablet by ity of tablet 00:00: 00:00 mouth [place] 00 :00 daily. [facility] Blood-Gluco 2-0 Yes [id number] Use twice [facility] se Meter 3-08 a day for ity of (ONETOUCH 00:00: [place] VERIO FLEX E11.65 Medical START) Kit Branch Blood-Gluco 2-0 Yes [id number] Use twice [facility] se M[facility] 3-08 a day for it[facility] of (ONETOUCH 00:00: ICD [place] VERIO FLEX E11.65 Medical START) Kit [facility] Blood-Gluco 2-0 Yes [id number] Use twice [facility] se [place] 3-08 a day for ity of (ONETOUCH 00:00: ICD [place] VERIO FLEX E11.65 Medical START) Kit [facility] Blood-Gluco 2-0 Yes [id number] Use twice [facility] se [place] 3-08 a day for ity of (ONETOUCH 00:00: ICD [place] VERIO FLEX E11.65 Medical START) Kit Branch Blood-Gluco 2022-0 Yes [id number] Use twice [facility] se [place] 3-08 a day for ity of (ONETOUCH 00:00: ICD [place] VERIO FLEX E11.65 Medical START) Kit [facility] Blood-Gluco 2022-0 Yes [id number] Use twice [facility] se [place] 3-08 a day for ity of (ONETOUCH 00:00: [place] VERIO FLEX Medical START) Kit [facility] Blood-Gluco 2022-0 Yes [id number] Use twice [facility] se [place] 3-08 a day for ity of (ONETOUCH 00:00: [place] VERIO FLEX Medical START) Kit [facility] Blood-Gluco 2022-0 Yes [id number] Use twice [facility] se [place] 3-08 a day for ity of (ONETOUCH 00:00: [place] VERIO FLEX Medical START) Kit [facility] Blood-Gluco 2022-0 Yes [id number] Use twice [facility] se [place] 3-08 a day for ity of (ONETOUCH 00:00: ICD [place] VERIO FLEX Medical START) Kit [facility] Blood-Gluco 2022-0 Yes [id number] Use twice [facility] se [place] 3-08 a day for ity of (ONETOUCH 00:00: ICD [place] VERIO FLEX Medical START) Kit [facility] Blood-Gluco 2022-0 Yes [id number] Use twice [facility] se [place] 3-08 a day for ity of (ONETOUCH 00:00: ICD [place] VERIO FLEX Medical START) Kit [facility] Blood-Gluco 2022-0 Yes [id number] Use twice [facility] se [place] 3-08 a day for ity of (ONETOUCH 00:00: ICD [place] VERIO FLEX Medical START) Kit [facility] Blood-Gluco 2022-0 Yes [id number] Use twice [facility] se [place] 3-08 a day for ity of (ONETOUCH 00:00: ICD [place] VERIO FLEX Medical START) Kit [facility] Blood-Gluco 2022-0 Yes [id number] Use twice [facility] se [place] 3-08 a day for ity of (ONETOUCH 00:00: ICD [place] VERIO FLEX Medical START) Kit [facility] Blood-Gluco 2022-0 Yes [id number] Use twice [facility] se [facility] 3-08 a day for ity of (ONETOUCH 00:00: ICD [place] VERIO FLEX Medical START) Kit [facility] Blood-Gluco 2022-0 Yes [id number] Use twice [facility] se [facility] 3-08 a day for ity of (ONETOUCH 00:00: ICD CODE [place] VERIO FLEX E11.65 Medical START) Kit Branch Blood-Gluco 2022-0 Yes [id number] Use twice [facility] se [facility] 3-08 a day for ity of (ONETOUCH 00:00: ICD CODE [place] VERIO FLEX E11.65 Medical START) Kit Branch Blood-Gluco 2022-0 Yes [id number] Use twice [facility] se [facility] 3-08 a day for ity of (ONETOUCH 00:00: ICD CODE [place] VERIO FLEX E11.65 Medical START) Kit Branch Blood-Gluco 2022-0 Yes [id number] Use twice [facility] se [facility] 3-08 a day for ity of (ONETOUCH 00:00: ICD CODE [place] VERIO FLEX E11.65 Medical START) Kit Branch Blood-Gluco 2022-0 Yes [id number] Use twice [facility] se [facility] 3-08 a day for ity of (ONETOUCH 00:00: ICD CODE [place] VERIO FLEX E11.65 Medical START) Kit Branch Blood-Gluco 2022-0 Yes [id number] Use twice [facility] se [facility] 3-08 a day for ity of (ONETOUCH 00:00: ICD CODE [place] VERIO FLEX E11.65 Medical START) Kit Branch Blood-Gluco 2022-0 Yes [id number] Use twice [facility] se [facility] 3-08 a day for ity of (ONETOUCH 00:00: ICD CODE [place] VERIO FLEX E11.65 Medical START) Kit Branch Blood-Gluco 2022-0 Yes [id number] Use twice [facility] se [facility] 3-08 a day for ity of (ONETOUCH 00:00: ICD CODE [place] VERIO FLEX E11.65 Medical START) Kit Branch Blood-Gluco 2022-0 Yes [id number] Use twice [facility] se [facility] 3-08 a day for ity of (ONETOUCH 00:00: ICD CODE [place] VERIO FLEX E11.65 Medical START) Kit Branch Blood-Gluco 2022-0 Yes [id number] Use twice [facility] se [facility] 3-08 a day for ity of (ONETOUCH 00:00: ICD CODE [place] VERIO FLEX Medical START) Kit Branch Blood-Gluco 2022-0 Yes [id number] Use twice [facility] se [facility] 3-08 a day for ity of (ONETOUCH 00:00: ICD CODE [place] VERIO FLEX Medical START) Kit [facility] Blood-Gluco 2022-0 Yes [id number] Use twice [facility] se [facility] 3-08 a day for ity of (ONETOUCH 00:00: ICD CODE [place] VERIO FLEX Medical START) Kit [facility] Blood-Gluco 2022-0 Yes [id number] Use twice [facility] se [facility] 3-08 a day for ity of (ONETOUCH 00:00: ICD CODE [place] VERIO FLEX Medical START) Kit Branch Blood-Gluco 2022-0 Yes [id number] Use twice [facility] se [facility] 3-08 a day for ity of (ONETOUCH 00:00: ICD CODE [place] VERIO FLEX Medical START) Kit Branch Blood-Gluco 2022-0 Yes [id number] Use twice [facility] se [facility] 3-08 a day for ity of (ONETOUCH 00:00: ICD CODE [place] VERIO FLEX Medical START) Kit Branch Blood-Gluco 2022-0 Yes [id number] Use twice [facility] se M[facility] 3-08 a day for ity of (ONETOUCH 00:00: ICD CODE [place] VERIO FLEX Medical START) Kit Branch Blood-Gluco 2022-0 Yes [id number] Use twice [facility] se M[facility] 3-08 a day for ity of (ONETOUCH 00:00: ICD CODE [place] VERIO FLEX Medical START) Kit Branch Blood-Gluco 2022-0 Yes [id number] Use twice [facility] se [facility] 3-08 a day for ity of (ONETOUCH 00:00: ICD CODE [place] VERIO FLEX Medical START) Kit Branch Blood-Gluco 2022-0 Yes [id number] Use twice [facility] se M[facility] 3-08 a day for ity of (ONETOUCH 00:00: ICD CODE [place] VERIO FLEX Medical START) Kit Branch Blood-Gluco 2022-0 Yes [id number] Use twice [facility] se M[facility] 3-08 a day for ity of (ONETOUCH 00:00: ICD [place] VERIO FLEX 00 E11.65 Medical START) [facility] Blood-Gluco 2021-0 Yes [id number] Use twice [facility] se Meter 3-08 a day for ity of (ONETOUCH 00:00: ICD [place] VERIO FLEX 00 E11.65 Medical START) [facility] Blood-Gluco 2021-0 2- No [id number] Use twice [facility] se Meter 3-08 - a day for ity o f (ONETOUCH 00:00: 00:00 ICD CODE [place] VERIO FLEX 00 :00 E11.65 Medical START) [facility] Blood-Gluco 2021-0 2021- No [id number] Use twice [facility] se Meter 3-08 - a day for ity o f (ONETOUCH 00:00: 00:00 ICD CODE [place] VERIO FLEX 00 :00 E11.65 Medical START) [facility] Blood-Gluco 2021-0 2021- No [id number] Use twice [facility] se Meter 3-08 - a day for ity o f (ONETOUCH 00:00: 00:00 ICD CODE [place] VERIO FLEX 00 :00 E11.65 Medical START) [facility] mirabegron 0 Yes [id number] 50mg Take 1 Univers (MYRBETRIQ) 1-18 tablet by ity of 50 mg 00:00: mouth [place] tablet 00 daily. [facility] mirabegron 2021-0 Yes [id number] 50mg Take 1 [facility] (MYRBETRIQ) 1-18 tablet by ity of 50 mg 00:00: mouth [place] tablet 00 daily. [facility] mirabegron 2021-0 Yes [id number] 50mg Take 1 [facility] (MYRBETRIQ) 1-18 tablet by ity of 50 mg 00:00: mouth [place] tablet 00 daily. [facility] mirabegron 2021-0 Yes [id number] 50mg Take 1 [facility] (MYRBETRIQ) 1-18 tablet by ity of 50 mg 00:00: mouth [place] tablet 00 daily. [facility] mirabegron 2021-0 Yes [id number] 50mg Take 1 [facility] (MYRBETRIQ) 1-18 tablet by ity of 50 mg 00:00: mouth [place] tablet 00 daily. [facility] mirabegron 0 Yes [id number] 50mg Take 1 [facility] (MYRBETRIQ) 1-18 tablet by ity of 50 mg 00:00: mouth [place] tablet 00 daily. [facility] mirabegron 0 Yes [id number] 50mg Take 1 [facility] (MYRBETRIQ) 1-18 tablet by ity of 50 mg 00:00: mouth [place] tablet 00 daily. [facility] mirabegron 0 Yes [id number] 50mg Take 1 [facility] (MYRBETRIQ) 1-18 tablet by ity of 50 mg 00:00: mouth [place] tablet 00 daily. [facility] mirabegron 0 Yes [id number] 50mg Take 1 [facility] (MYRBETRIQ) 1-18 tablet by ity of 50 mg 00:00: mouth [place] tablet 00 daily. [facility] mirabegron 0 Yes [id number] 50mg Take 1 [facility] (MYRBETRIQ) 1-18 tablet by ity of 50 mg 00:00: mouth [place] tablet 00 daily. [facility] mirabegron 0 Yes [id number] 50mg Take 1 [facility] (MYRBETRIQ) 1-18 tablet by ity of 50 mg 00:00: mouth [place] tablet 00 daily. [facility] mirabegron 0 Yes [id number] 50mg Take 1 [facility] (MYRBETRIQ) 1-18 tablet by ity of 50 mg 00:00: mouth [place] tablet 00 daily. [facility] mirabegron 0 Yes [id number] 50mg Take 1 [facility] (MYRBETRIQ) 1-18 tablet by ity of 50 mg 00:00: mouth [place] tablet 00 daily. [facility] mirabegron 0 Yes [id number] 50mg Take 1 [facility] (MYRBETRIQ) 1-18 tablet by ity of 50 mg 00:00: mouth [place] tablet 00 daily. [facility] mirabegron 0 Yes [id number] 50mg Take 1 [facility] (MYRBETRIQ) 1-18 tablet by ity of 50 mg 00:00: mouth [place] tablet 00 daily. [facility] mirabegron 0 Yes [id number] 50mg Take 1 [facility] (MYRBETRIQ) 1-18 tablet by ity of 50 mg 00:00: mouth [place] tablet 00 daily. [facility] mirabegron 2021-0 Yes [id number] 50mg Take 1 [facility] (MYRBETRIQ) 1-18 tablet by ity of 50 mg 00:00: mouth [place] tablet 00 daily. [facility] mirabegron 2021-0 Yes [id number] 50mg Take 1 [facility] (MYRBETRIQ) 1-18 tablet by ity of 50 mg 00:00: mouth [place] tablet 00 daily. [facility] mirabegron 0 Yes [id number] 50mg Take 1 [facility] (MYRBETRIQ) 1-18 tablet by ity of 50 mg 00:00: mouth [place] tablet 00 daily. [facility] mirabegron 0 Yes [id number] 50mg Take 1 [facility] (MYRBETRIQ) 1-18 tablet by ity of 50 mg 00:00: mouth [place] tablet 00 daily. [facility] mirabegron 0 Yes [id number] 50mg Take 1 [facility] (MYRBETRIQ) 1-18 tablet by ity of 50 mg 00:00: mouth [place] tablet 00 daily. [facility] mirabegron 0 Yes [id number] 50mg Take 1 [facility] (MYRBETRIQ) 1-18 tablet by ity of 50 mg 00:00: mouth [place] tablet 00 daily. [facility] mirabegron 0 Yes [id number] 50mg Take 1 [facility] (MYRBETRIQ) 1-18 tablet by ity of 50 mg 00:00: mouth [place] tablet 00 daily. [facility] mirabegron 0 Yes [id number] 50mg Take 1 [facility] (MYRBETRIQ) 1-18 tablet by ity of 50 mg 00:00: mouth [place] tablet 00 daily. [facility] mirabegron 0 Yes [id number] 50mg Take 1 [facility] (MYRBETRIQ) 1-18 tablet by ity of 50 mg 00:00: mouth [place] tablet 00 daily. [facility] mirabegron 2021-0 Yes [id number] 50mg Take 1 [facility] (MYRBETRIQ) 1-18 tablet by ity of 50 mg 00:00: mouth [place] tablet 00 daily. [facility] mirabegron 2021-0 Yes [id number] 50mg Take 1 [facility] (MYRBETRIQ) 1-18 tablet by ity of 50 mg 00:00: mouth [place] tablet 00 daily. [facility] mirabegron 2021-0 Yes [id number] 50mg Take 1 [facility] (MYRBETRIQ) 1-18 tablet by ity of 50 mg 00:00: mouth [place] tablet 00 daily. [facility] mirabegron 2021-0 Yes [id number] 50mg Take 1 [facility] (MYRBETRIQ) 1-18 tablet by ity of 50 mg 00:00: mouth [place] tablet 00 daily. [facility] mirabegron 0 Yes [id number] 50mg Take 1 [facility] (MYRBETRIQ) 1-18 tablet by ity of 50 mg 00:00: mouth [place] tablet 00 daily. [facility] mirabegron 0 Yes [id number] 50mg Take 1 [facility] (MYRBETRIQ) 1-18 tablet by ity of 50 mg 00:00: mouth [place] tablet 00 daily. [facility] mirabegron 0 Yes [id number] 50mg Take 1 [facility] (MYRBETRIQ) 1-18 tablet by ity of 50 mg 00:00: mouth [place] tablet 00 daily. [facility] mirabegron 0 Yes [id number] 50mg Take 1 [facility] (MYRBETRIQ) 1-18 tablet by ity of 50 mg 00:00: mouth [place] tablet 00 daily. [facility] mirabegron 0 Yes [id number] 50mg Take 1 [facility] (MYRBETRIQ) 1-18 tablet by ity of 50 mg 00:00: mouth [place] tablet 00 daily. [facility] mirabegron 2021-0 Yes [id number] 50mg Take 1 [facility] (MYRBETRIQ) 1-18 tablet by ity of 50 mg 00:00: mouth [place] tablet 00 daily. [facility] mirabegron 2021-0 Yes [id number] 50mg Take 1 [facility] (MYRBETRIQ) 1-18 tablet by ity of 50 mg 00:00: mouth [place] tablet 00 daily. [facility] mirabegron 2021-0 Yes [id number] 50mg Take 1 [facility] (MYRBETRIQ) 1-18 tablet by ity of 50 mg 00:00: mouth [place] tablet 00 daily. [facility] mirabegron 2021-0 Yes [id number] 50mg Take 1 [facility] (MYRBETRIQ) 1-18 tablet by ity of 50 mg 00:00: mouth [place] tablet 00 daily. [facility] mirabegron 0 Yes [id number] 50mg Take 1 [facility] (MYRBETRIQ) 1-18 tablet by ity of 50 mg 00:00: mouth [place] tablet 00 daily. [facility] Branch mirabegron 0 Yes [id number] 50mg Take 1 [facility] (MYRBETRIQ) 1-18 tablet by ity of 50 mg 00:00: mouth [place] tablet 00 daily. [facility] Branch mirabegron 0 Yes [id number] 50mg Take 1 [facility] (MYRBETRIQ) 1-18 tablet by ity of 50 mg 00:00: mouth [place] tablet 00 daily. [facility] mirabegron 0 Yes [id number] 50mg Take 1 [facility] (MYRBETRIQ) 1-18 tablet by ity of 50 mg 00:00: mouth [place] tablet 00 daily. [facility] mirabegron 0 Yes [id number] 50mg Take 1 [facility] (MYRBETRIQ) 1-18 tablet by ity of 50 mg 00:00: mouth [place] tablet 00 daily. [facility] mirabegron 0 Yes [id number] 50mg Take 1 [facility] (MYRBETRIQ) 1-18 tablet by ity of 50 mg 00:00: mouth [place] tablet 00 daily. [facility] mirabegron 0 Yes [id number] 50mg Take 1 [facility] (MYRBETRIQ) 1-18 tablet by ity of 50 mg 00:00: mouth [place] tablet 00 daily. [facility] mirabegron 0 Yes [id number] 50mg Take 1 [facility] (MYRBETRIQ) 1-18 tablet by ity of 50 mg 00:00: mouth [place] tablet 00 daily. [facility] mirabegron 0 Yes [id number] 50mg Take 1 [facility] (MYRBETRIQ) 1-18 tablet by ity of 50 mg 00:00: mouth [place] tablet 00 daily. [facility] mirabegron 0 Yes [id number] 50mg Take 1 [facility] (MYRBETRIQ) 1-18 tablet by ity of 50 mg 00:00: mouth [place] tablet 00 daily. [facility] mirabegron 0 2021- No [id number] 50mg Take 1 [facility] (MYRBETRIQ) 1-18 10-13 tablet by it y of 50 mg 00:00: 00:00 mouth [place] tablet 00 :00 daily. Medical Branch semaglutide 2020-09 Yes [id number] Inject [facility] (OZEMPIC) 2-01 0.25 mg ity of 0.25 mg or 00:00: under the [place] 0.5 mg(2 00 skin Medical mg/1.5 mL) weekly. Branch [facility] semaglutide 2020-09 Yes [id number] Inject [facility] (OZEMPIC) 2-01 0.25 mg ity of 0.25 mg or 00:00: under the [place] 0.5 mg(2 00 skin Medical mg/1.5 mL) weekly. [facility] semaglutide 2020-09 Yes [id number] Inject [facility] (OZEMPIC) 2-01 0.25 mg ity of 0.25 mg or 00:00: under the [place] 0.5 mg(2 00 skin Medical mg/1.5 mL) weekly. [facility] semaglutide 2020-09 Yes [id number] Inject [facility] (OZEMPIC) 2-01 0.25 mg ity of 0.25 mg or 00:00: under the [place] 0.5 mg(2 00 skin Medical mg/1.5 mL) weekly. [facility] semaglutide 2020-09 Yes [id number] Inject [facility] (OZEMPIC) 2-01 0.25 mg ity of 0.25 mg or 00:00: under the [place] 0.5 mg(2 00 skin Medical mg/1.5 mL) weekly. [facility] semaglutide 2020-09 Yes [id number] Inject [facility] (OZEMPIC) 2-01 0.25 mg ity of 0.25 mg or 00:00: under the [place] 0.5 mg(2 00 skin Medical mg/1.5 mL) weekly. [facility] semaglutide 2020-09 Yes [id number] Inject [facility] (OZEMPIC) 2-01 0.25 mg ity of 0.25 mg or 00:00: under the [place] 0.5 mg(2 00 skin Medical mg/1.5 mL) weekly. [facility] semaglutide 2020-09 Yes [id number] Inject [facility] (OZEMPIC) 2-01 0.25 mg ity of 0.25 mg or 00:00: under the [place] 0.5 mg(2 00 skin Medical mg/1.5 mL) weekly. Branch [facility] semaglutide 2020-09 Yes [id number] Inject [facility] (OZEMPIC) 2-01 0.25 mg ity of 0.25 mg or 00:00: under the [place] 0.5 mg(2 00 skin Medical mg/1.5 mL) weekly. Branch [facility] semaglutide 2020-09 Yes [id number] Inject [facility] (OZEMPIC) 2-01 0.25 mg ity of 0.25 mg or 00:00: under the [place] 0.5 mg(2 00 skin Medical mg/1.5 mL) weekly. Branch [facility] semaglutide 2020-09 Yes [id number] Inject [facility] (OZEMPIC) 2-01 0.25 mg ity of 0.25 mg or 00:00: under the [place] 0.5 mg(2 00 skin Medical mg/1.5 mL) weekly. Branch [facility] semaglutide 2020-09 Yes [id number] Inject [facility] (OZEMPIC) 2-01 0.25 mg ity of 0.25 mg or 00:00: under the [place] 0.5 mg(2 00 skin Medical mg/1.5 mL) weekly. Branch [facility] semaglutide 2020-09 Yes [id number] Inject [facility] (OZEMPIC) 2-01 0.25 mg ity of 0.25 mg or 00:00: under the [place] 0.5 mg(2 00 skin Medical mg/1.5 mL) weekly. Branch [facility] semaglutide 2020-09 Yes [id number] Inject [facility] (OZEMPIC) 2-01 0.25 mg ity of 0.25 mg or 00:00: under the [place] 0.5 mg(2 00 skin Medical mg/1.5 mL) weekly. Branch [facility] semaglutide 2020-09 Yes [id number] Inject [facility] (OZEMPIC) 2-01 0.25 mg ity of 0.25 mg or 00:00: under the [place] 0.5 mg(2 00 skin Medical mg/1.5 mL) weekly. Branch [facility] semaglutide 2020-09 Yes [id number] Inject [facility] (OZEMPIC) 2-01 0.25 mg ity of 0.25 mg or 00:00: under the [place] 0.5 mg(2 00 skin Medical mg/1.5 mL) weekly. Branch [facility] semaglutide 2020-09 Yes [id number] Inject [facility] (OZEMPIC) 2-01 0.25 mg ity of 0.25 mg or 00:00: under the [place] 0.5 mg(2 00 skin Medical mg/1.5 mL) weekly. Branch [facility] semaglutide 2020-09 Yes [id number] Inject [facility] (OZEMPIC) 2-01 0.25 mg ity of 0.25 mg or 00:00: under the [place] 0.5 mg(2 00 skin Medical mg/1.5 mL) weekly. Branch [facility] semaglutide 2020-09 Yes [id number] Inject [facility] (OZEMPIC) 2-01 0.25 mg ity of 0.25 mg or 00:00: under the [place] 0.5 mg(2 00 skin Medical mg/1.5 mL) weekly. Branch [facility] semaglutide 2020-09 Yes [id number] Inject [facility] (OZEMPIC) 2-01 0.25 mg ity of 0.25 mg or 00:00: under the [place] 0.5 mg(2 00 skin Medical mg/1.5 mL) weekly. Branch [facility] semaglutide 2020-09 Yes [id number] Inject [facility] (OZEMPIC) 2-01 0.25 mg ity of 0.25 mg or 00:00: under the [place] 0.5 mg(2 00 skin Medical mg/1.5 mL) weekly. Branch [facility] semaglutide 2020-09 Yes [id number] Inject [facility] (OZEMPIC) 2-01 0.25 mg ity of 0.25 mg or 00:00: under the [place] 0.5 mg(2 00 skin Medical mg/1.5 mL) weekly. Branch [facility] semaglutide 2020-09 Yes [id number] Inject [facility] (OZEMPIC) 2-01 0.25 mg ity of 0.25 mg or 00:00: under the [place] 0.5 mg(2 00 skin Medical mg/1.5 mL) weekly. Branch [facility] semaglutide 2020-09 Yes [id number] Inject [facility] (OZEMPIC) 2-01 0.25 mg ity of 0.25 mg or 00:00: under the [place] 0.5 mg(2 00 skin Medical mg/1.5 mL) weekly. Branch [facility] semaglutide 2020-09 Yes [id number] Inject [facility] (OZEMPIC) 2-01 0.25 mg ity of 0.25 mg or 00:00: under the [place] 0.5 mg(2 00 skin Medical mg/1.5 mL) weekly. Branch [facility] semaglutide 2020-09 Yes [id number] Inject [facility] (OZEMPIC) 2-01 0.25 mg ity of 0.25 mg or 00:00: under the [place] 0.5 mg(2 00 skin Medical mg/1.5 mL) weekly. Branch [facility] semaglutide 2020-09 Yes [id number] Inject [facility] (OZEMPIC) 2-01 0.25 mg ity of 0.25 mg or 00:00: under the [place] 0.5 mg(2 00 skin Medical mg/1.5 mL) weekly. Branch PnIj semaglutide 2020-09 Yes [id number] Inject [facility] (OZEMPIC) 2-01 0.25 mg ity of 0.25 mg or 00:00: under the [place] 0.5 mg(2 00 skin Medical mg/1.5 mL) weekly. Branch PnIj semaglutide 2020-09 Yes [id number] Inject [facility] (OZEMPIC) 2-01 0.25 mg ity of 0.25 mg or 00:00: under the [place] 0.5 mg(2 00 skin Medical mg/1.5 mL) weekly. Branch PnIj semaglutide 2020-09 Yes [id number] Inject [facility] (OZEMPIC) 2-01 0.25 mg ity of 0.25 mg or 00:00: under the [place] 0.5 mg(2 00 skin Medical mg/1.5 mL) weekly. Branch PnIj semaglutide 2020-09 Yes [id number] Inject [facility] (OZEMPIC) 2-01 0.25 mg ity of 0.25 mg or 00:00: under the [place] 0.5 mg(2 00 skin Medical mg/1.5 mL) weekly. Branch PnIj semaglutide 2020-09 Yes [id number] Inject [facility] (OZEMPIC) 2-01 0.25 mg ity of 0.25 mg or 00:00: under the [place] 0.5 mg(2 00 skin Medical mg/1.5 mL) weekly. Branch PnIj semaglutide 2020-09 Yes [id number] Inject [facility] (OZEMPIC) 2-01 0.25 mg ity of 0.25 mg or 00:00: under the [place] 0.5 mg(2 00 skin Medical mg/1.5 mL) weekly. Branch PnIj semaglutide 2020-09 Yes [id number] Inject [facility] (OZEMPIC) 2-01 0.25 mg ity of 0.25 mg or 00:00: under the [place] 0.5 mg(2 00 skin Medical mg/1.5 mL) weekly. Branch PnIj semaglutide 2020-09 Yes [id number] Inject [facility] (OZEMPIC) 2-01 0.25 mg ity of 0.25 mg or 00:00: under the [place] 0.5 mg(2 00 skin Medical mg/1.5 mL) weekly. Branch PnIj semaglutide 2020-09 Yes [id number] Inject [facility] (OZEMPIC) 2-01 0.25 mg ity of 0.25 mg or 00:00: under the [place] 0.5 mg(2 00 skin Medical mg/1.5 mL) weekly. Branch PnIj semaglutide 2020-09 Yes [id number] Inject [facility] (OZEMPIC) 2-01 0.25 mg ity of 0.25 mg or 00:00: under the [place] 0.5 mg(2 00 skin Medical mg/1.5 mL) weekly. Branch PnIj semaglutide 2020-09 Yes [id number] Inject [facility] (OZEMPIC) 2-01 0.25 mg ity of 0.25 mg or 00:00: under the [place] 0.5 mg(2 00 skin Medical mg/1.5 mL) weekly. Branch PnIj semaglutide 2020-09 Yes [id number] Inject [facility] (OZEMPIC) 2-01 0.25 mg ity of 0.25 mg or 00:00: under the [place] 0.5 mg(2 00 skin Medical mg/1.5 mL) weekly. Branch PnIj semaglutide 2020-09 Yes [id number] Inject [facility] (OZEMPIC) 2-01 0.25 mg ity of 0.25 mg or 00:00: under the [place] 0.5 mg(2 00 skin Medical mg/1.5 mL) weekly. Branch PnIj semaglutide 2020-09 Yes [id number] Inject [facility] (OZEMPIC) 2-01 0.25 mg ity of 0.25 mg or 00:00: under the [place] 0.5 mg(2 00 skin Medical mg/1.5 mL) weekly. Branch PnIj semaglutide 2020-09 Yes [id number] Inject [facility] (OZEMPIC) 2-01 0.25 mg ity of 0.25 mg or 00:00: under the [place] 0.5 mg(2 00 skin Medical mg/1.5 mL) weekly. Branch PnIj semaglutide 2020-09 Yes [id number] Inject [facility] (OZEMPIC) 2-01 0.25 mg ity of 0.25 mg or 00:00: under the [place] 0.5 mg(2 00 skin Medical mg/1.5 mL) weekly. Branch PnIj semaglutide 2020-09 Yes [id number] Inject [facility] (OZEMPIC) 2-01 0.25 mg ity of 0.25 mg or 00:00: under the [place] 0.5 mg(2 00 skin Medical mg/1.5 mL) weekly. Branch PnIj semaglutide 2020-09 Yes [id number] Inject [facility] (OZEMPIC) 2-01 0.25 mg ity of 0.25 mg or 00:00: under the [place] 0.5 mg(2 00 skin Medical mg/1.5 mL) weekly. Branch PnIj semaglutide 2020-09 Yes [id number] Inject [facility] (OZEMPIC) 2-01 0.25 mg ity of 0.25 mg or 00:00: under the [place] 0.5 mg(2 00 skin Medical mg/1.5 mL) weekly. Branch PnIj semaglutide 2020-09 Yes [id number] Inject [facility] (OZEMPIC) 2-01 0.25 mg ity of 0.25 mg or 00:00: under the [place] 0.5 mg(2 00 skin Medical mg/1.5 mL) weekly. Branch PnIj semaglutide 2020-09 Yes [id number] Inject [facility] (OZEMPIC) 10-27 0.25 mg ity of 0.25 mg or 00:00: under the [place] 0.5 mg(2 00 skin Medical mg/1.5 mL) weekly. Branch PnIj semaglutide 2020-09- No [id number] Inject [facility] (OZEMPIC) 10-27 10- 0.25 mg ity of 0.25 mg or 00:00: 00:00 under the [place] 0.5 mg(2 00 :00 skin Medical mg/1.5 mL) weekly. Branch PnIj metformin 2020-09- No [id number] 500mg Take 1 [facility] ER 500 mg 10-27 tablet by ity of 24 hr 00:00: 00:00 mouth [place] tablet 00 :00 daily with Medical breakfast. Branch STOP REGULAR METFORMIN. metformin 2020-09- No [id number] 500mg Take 1 [facility] ER 500 mg 10-27 tablet by ity of 24 hr 00:00: 00:00 mouth [place] tablet 00 :00 daily with Medical breakfast. Branch STOP REGULAR METFORMIN. cyanocobala 2020-09 Yes [id number] 1000ug 1 mL by [facility] min 1,000 1-09 Intramuscu ity of mcg/mL 00:00: lar route [place] injection 00 every 2 Medical (two) Branch weeks. levothyroxi 2020-09 Yes [id number] 50ug Take 1 [facility] ne 50 mcg 1-09 tablet by ity o f tablet 00:00: mouth [place] 00 every Medical morning. Branch fluticasone 2020-09 Yes [id number] 2{puff} Inhale 2 [facility] propionate 1-09 Puffs ity of (FLOVENT 00:00: every 12 [place] HFA) 110 00 (twelve) Medical mcg/actuati hours. Branch on inhaler Rinse mouth after each use. levalbutero 2020-09 Yes [id number] .63mg Inhale [facility] l 0.63 mg/3 1-09 0.63 mg 3 ity of mL 00:00: (three) [place] nebulizer 00 times Medical solution daily as Branch needed for Wheezing or Shortness of Breath. losartan 50 2020-09 Yes [id number] 50mg Take 1 [facility] mg tablet 1-09 tablet by ity o f 00:00: mouth 2 [place] 00 (two) Medical times Branch daily. clotrimazol 2020-09 Yes [id number] Apply to [facility] e-betametha 09 area(s) 2 ity of sone cream 00:00: (two) [place] 00 times Medical daily. Branch cyclobenzap 2020-09 Yes [id number] TAKE 1 [facility] rine 5 mg -09 TABLET BY ity o f tablet 00:00: MOUTH [place] 00 EVERY 8 Medical HOURS Branch NEEDED econazole 2020-09 Yes [id number] Apply to [facility] nitrate 1 % 10-04 area(s) 2 ity of cream 00:00: (two) [place] 00 times Medical daily. Branch albuterol 2020-09 Yes [id number] 2{puff} Inhale 2 [facility] (PROAIR 1-09 Puffs ity of HFA) 90 00:00: every 6 [place] mcg/actuati 00 (six) Medical on inhaler hours as Branc h needed for Wheezing or Shortness of Breath. triamcinolo 2020-09 Yes [id number] Apply to [facility] ne 0.025 % 10-04 area(s) 3 ity of ointment 00:00: (three) [place] 00 times Medical daily. For Branch itching diltiazem 2020-09 Yes [id number] 120mg Take 1 [facility] (CARTIA XT) 09 capsule by it y of 120 mg 24 00:00: mouth 2 [place] hr capsule 00 (two) Medical times Branch daily. cyanocobala 2020-09 Yes [id number] 1000ug 1 mL by [facility] min 1,000 -09 Intramuscu ity of mcg/mL 00:00: lar route [place] injection 00 every 2 Medical (two) Branch weeks. levothyroxi 2020-09 Yes [id number] 50ug Take 1 [facility] ne 50 mcg 1-09 tablet by ity o f tablet 00:00: mouth [place] 00 every Medical morning. Branch fluticasone 2020-09 Yes [id number] 2{puff} Inhale 2 [facility] propionate 1-09 Puffs ity of (FLOVENT 00:00: every 12 [place] HFA) 110 00 (twelve) Medical mcg/actuati hours. Branch on inhaler Rinse mouth after each use. levalbutero 2020-09 Yes [id number] .63mg Inhale [facility] l 0.63 mg/3 1-09 0.63 mg 3 ity of mL 00:00: (three) [place] nebulizer 00 times Medical solution daily as Branch needed for Wheezing or Shortness of Breath. losartan 50 2020-09 Yes [id number] 50mg Take 1 [facility] mg tablet 1-09 tablet by ity o f 00:00: mouth 2 [place] 00 (two) Medical times Branch daily. clotrimazol 2020-09 Yes [id number] Apply to [facility] e-betametha -09 area(s) 2 ity of sone cream 00:00: (two) [place] 00 times Medical daily. Branch cyclobenzap 2020-09 Yes [id number] TAKE 1 [facility] rine 5 mg -09 TABLET BY ity o f tablet 00:00: MOUTH [place] 00 EVERY 8 Medical HOURS Branch NEEDED econazole 2020-09 Yes [id number] Apply to [facility] nitrate 1 % 09 area(s) 2 ity of cream 00:00: (two) [place] 00 times Medical daily. Branch albuterol 2020-09 Yes [id number] 2{puff} Inhale 2 [facility] (PROAIR 1-09 Puffs ity of HFA) 90 00:00: every 6 [place] mcg/actuati 00 (six) Medical on inhaler hours as Branc h needed for Wheezing or Shortness of Breath. triamcinolo 2020-09 Yes [id number] Apply to [facility] ne 0.025 % 09 area(s) 3 ity of ointment 00:00: (three) [place] 00 times Medical daily. For Branch itching diltiazem 2020-09 Yes [id number] 120mg Take 1 [facility] (CARTIA XT) -09 capsule by it y of 120 mg 24 00:00: mouth 2 [place] hr capsule 00 (two) Medical times Branch daily. cyanocobala 2020-09 Yes [id number] 1000ug 1 mL by [facility] min 1,000 -09 Intramuscu ity of mcg/mL 00:00: lar route [place] injection 00 every 2 Medical (two) Branch weeks. levothyroxi 2020-09 Yes [id number] 50ug Take 1 [facility] ne 50 mcg 1-09 tablet by ity o f tablet 00:00: mouth [place] 00 every Medical morning. Branch fluticasone 2020-09 Yes [id number] 2{puff} Inhale 2 [facility] propionate 1-09 Puffs ity of (FLOVENT 00:00: every 12 [place] HFA) 110 00 (twelve) Medical mcg/actuati hours. Branch on inhaler Rinse mouth after each use. levalbutero 2020-09 Yes [id number] .63mg Inhale [facility] l 0.63 mg/3 1-09 0.63 mg 3 ity of mL 00:00: (three) [place] nebulizer 00 times Medical solution daily as Branch needed for Wheezing or Shortness of Breath. losartan 50 2020-09 Yes [id number] 50mg Take 1 [facility] mg tablet -09 tablet by ity o f 00:00: mouth 2 [place] 00 (two) Medical times Branch daily. clotrimazol 2020-09 Yes [id number] Apply to [facility] e-betametha -09 area(s) 2 ity of sone cream 00:00: (two) [place] 00 times Medical daily. Branch cyclobenzap 2020-09 Yes [id number] TAKE 1 [facility] rine 5 mg -09 TABLET BY ity o f tablet 00:00: MOUTH [place] 00 EVERY 8 Medical HOURS Branch NEEDED econazole 2020-09 Yes [id number] Apply to [facility] nitrate 1 % 09 area(s) 2 ity of cream 00:00: (two) [place] 00 times Medical daily. Branch albuterol 2020-09 Yes [id number] 2{puff} Inhale 2 [facility] (PROAIR 1-09 Puffs ity of HFA) 90 00:00: every 6 [place] mcg/actuati 00 (six) Medical on inhaler hours as Branc h needed for Wheezing or Shortness of Breath. triamcinolo 2020-09 Yes [id number] Apply to [facility] ne 0.025 % -09 area(s) 3 ity of ointment 00:00: (three) [place] 00 times Medical daily. For Branch itching diltiazem 2020-09 Yes [id number] 120mg Take 1 [facility] n[facility] (CARTIA XT) 1-09 capsule by it y of 120 mg 24 00:00: mouth 2 [place] hr capsule 00 (two) Medical times Branch daily. cyanocobala 2020-09 Yes [id number] 1000ug 1 mL by [facility] min 1,000 1-09 Intramuscu ity of mcg/mL 00:00: lar route [place] injection 00 every 2 Medical (two) Branch weeks. levothyroxi 2020-09 Yes [id number] 50ug Take 1 [facility] ne 50 mcg 1-09 tablet by ity o f tablet 00:00: mouth [place] 00 every Medical morning. Branch fluticasone 2020-09 Yes [id number] 2{puff} Inhale 2 [facility] propionate 1-09 Puffs ity of (FLOVENT 00:00: every 12 [place] HFA) 110 00 (twelve) Medical mcg/actuati hours. Branch on inhaler Rinse mouth after each use. levalbutero 2020-09 Yes [id number] .63mg Inhale [facility] l 0.63 mg/3 1-09 0.63 mg 3 ity of mL 00:00: (three) [place] nebulizer 00 times Medical solution daily as Branch needed for Wheezing or Shortness of Breath. losartan 50 2020-09 Yes [id number] 50mg Take 1 [facility] mg tablet 1-09 tablet by ity o f 00:00: mouth 2 [place] 00 (two) Medical times Branch daily. clotrimazol 2020-09 Yes [id number] Apply to [facility] e-betametha -09 area(s) 2 ity of sone cream 00:00: (two) [place] 00 times Medical daily. Branch cyclobenzap 2020-09 Yes [id number] TAKE 1 [facility] rine 5 mg 1-09 TABLET BY ity o f tablet 00:00: MOUTH [place] 00 EVERY 8 Medical HOURS Branch NEEDED econazole 2020-09 Yes [id number] Apply to [facility] nitrate 1 % 1-09 area(s) 2 ity of cream 00:00: (two) [place] 00 times Medical daily. Branch albuterol 2020-09 Yes [id number] 2{puff} Inhale 2 [facility] (PROAIR 1-09 Puffs ity of HFA) 90 00:00: every 6 [place] mcg/actuati 00 (six) Medical on inhaler hours as Branc h needed for Wheezing or Shortness of Breath. triamcinolo 2020-09 Yes [id number] Apply to [facility] ne 0.025 % 10-04 area(s) 3 ity of ointment 00:00: (three) [place] 00 times Medical daily. For Branch itching diltiazem 2020-09 Yes [id number] 120mg Take 1 [facility] n[facility] (CARTIA XT) 09 capsule by it y of 120 mg 24 00:00: mouth 2 [place] hr capsule 00 (two) Medical times Branch daily. cyanocobala 2020-09 Yes [id number] 1000ug 1 mL by [facility] min 1,000 -09 Intramuscu ity of mcg/mL 00:00: lar route [place] injection 00 every 2 Medical (two) Branch weeks. levothyroxi 2020-09 Yes [id number] 50ug Take 1 [facility] ne 50 mcg 09 tablet by ity o f tablet 00:00: mouth [place] 00 every Medical morning. Branch fluticasone 2020-09 Yes [id number] 2{puff} Inhale 2 [facility] propionate -09 Puffs ity of (FLOVENT 00:00: every 12 [place] HFA) 110 00 (twelve) Medical mcg/actuati hours. Branch on inhaler Rinse mouth after each use. levalbutero 2020-09 Yes [id number] .63mg Inhale [facility] l 0.63 mg/3 -09 0.63 mg 3 ity of mL 00:00: (three) [place] nebulizer 00 times Medical solution daily as Branch needed for Wheezing or Shortness of Breath. clotrimazol 2020-09 Yes [id number] Apply to [facility] e-betametha 10-04 area(s) 2 ity of sone cream 00:00: (two) [place] 00 times Medical daily. Branch cyclobenzap 2020-09 Yes [id number] TAKE 1 [facility] rine 5 mg -09 TABLET BY ity o f tablet 00:00: MOUTH [place] 00 EVERY 8 Medical HOURS Branch NEEDED econazole 2020-09 Yes [id number] Apply to [facility] nitrate 1 % 09 area(s) 2 ity of cream 00:00: (two) [place] 00 times Medical daily. Branch albuterol 2020-09 Yes [id number] 2{puff} Inhale 2 [facility] (PROAIR 1-09 Puffs ity of HFA) 90 00:00: every 6 [place] mcg/actuati 00 (six) Medical on inhaler hours as Branc h needed for Wheezing or Shortness of Breath. triamcinolo 2020-09 Yes [id number] Apply to [facility] ne 0.025 % 1-09 area(s) 3 ity of ointment 00:00: (three) [place] 00 times Medical daily. For Branch itching cyanocobala 2020-09 Yes [id number] 1000ug 1 mL by [facility] min 1,000 -09 Intramuscu ity of mcg/mL 00:00: lar route [place] injection 00 every 2 Medical (two) Branch weeks. levothyroxi 2020-09 Yes [id number] 50ug Take 1 [facility] ne 50 mcg 1-09 tablet by ity o f tablet 00:00: mouth [place] 00 every Medical morning. Branch fluticasone 2020-09 Yes [id number] 2{puff} Inhale 2 [facility] propionate 1-09 Puffs ity of (FLOVENT 00:00: every 12 [place] HFA) 110 00 (twelve) Medical mcg/actuati hours. Branch on inhaler Rinse mouth after each use. levalbutero 2020-09 Yes [id number] .63mg Inhale [facility] l 0.63 mg/3 1-09 0.63 mg 3 ity of mL 00:00: (three) [place] nebulizer 00 times Medical solution daily as Branch needed for Wheezing or Shortness of Breath. clotrimazol 2020-09 Yes [id number] Apply to [facility] e-betametha 09 area(s) 2 ity of sone cream 00:00: (two) [place] 00 times Medical daily. Branch cyclobenzap 2020-09 Yes [id number] TAKE 1 [facility] rine 5 mg -09 TABLET BY ity o f tablet 00:00: MOUTH [place] 00 EVERY 8 Medical HOURS Branch NEEDED econazole 2020-09 Yes [id number] Apply to [facility] nitrate 1 % -09 area(s) 2 ity of cream 00:00: (two) [place] 00 times Medical daily. Branch albuterol 2020-09 Yes [id number] 2{puff} Inhale 2 [facility] (PROAIR 1-09 Puffs ity of HFA) 90 00:00: every 6 [place] mcg/actuati 00 (six) Medical on inhaler hours as Branc h needed for Wheezing or Shortness of Breath. triamcinolo 2020-09 Yes [id number] Apply to [facility] ne 0.025 % -09 area(s) 3 ity of ointment 00:00: (three) [place] 00 times Medical daily. For Branch itching cyanocobala 2020-09 Yes [id number] 1000ug 1 mL by [facility] min 1,000 -09 Intramuscu ity of mcg/mL 00:00: lar route [place] injection 00 every 2 Medical (two) Branch weeks. levothyroxi 2020-09 Yes [id number] 50ug Take 1 [facility] ne 50 mcg 1-09 tablet by ity o f tablet 00:00: mouth [place] 00 every Medical morning. Branch fluticasone 2020-09 Yes [id number] 2{puff} Inhale 2 [facility] propionate -09 Puffs ity of (FLOVENT 00:00: every 12 [place] HFA) 110 00 (twelve) Medical mcg/actuati hours. Branch on inhaler Rinse mouth after each use. levalbutero 2020-09 Yes [id number] .63mg Inhale [facility] l 0.63 mg/3 -09 0.63 mg 3 ity of mL 00:00: (three) [place] nebulizer 00 times Medical solution daily as Branch needed for Wheezing or Shortness of Breath. clotrimazol 2020-09 Yes [id number] Apply to [facility] e-betametha 10-04 area(s) 2 ity of sone cream 00:00: (two) [place] 00 times Medical daily. Branch cyclobenzap 2020-09 Yes [id number] TAKE 1 [facility] rine 5 mg -09 TABLET BY ity o f tablet 00:00: MOUTH [place] 00 EVERY 8 Medical HOURS Branch NEEDED econazole 2020-09 Yes [id number] Apply to [facility] nitrate 1 % 09 area(s) 2 ity of cream 00:00: (two) [place] 00 times Medical daily. Branch albuterol 2020-09 Yes [id number] 2{puff} Inhale 2 [facility] (PROAIR 1-09 Puffs ity of HFA) 90 00:00: every 6 [place] mcg/actuati 00 (six) Medical on inhaler hours as Branc h needed for Wheezing or Shortness of Breath. triamcinolo 2020-09 Yes [id number] Apply to [facility] ne 0.025 % -09 area(s) 3 ity of ointment 00:00: (three) [place] 00 times Medical daily. For Branch itching cyanocobala 2020-09 Yes [id number] 1000ug 1 mL by [facility] min 1,000 1-09 Intramuscu ity of mcg/mL 00:00: lar route [place] injection 00 every 2 Medical (two) Branch weeks. levothyroxi 2020-09 Yes [id number] 50ug Take 1 [facility] ne 50 mcg 1-09 tablet by ity o f tablet 00:00: mouth [place] 00 every Medical morning. Branch fluticasone 2020-09 Yes [id number] 2{puff} Inhale 2 [facility] propionate 1-09 Puffs ity of (FLOVENT 00:00: every 12 [place] HFA) 110 00 (twelve) Medical mcg/actuati hours. Branch on inhaler Rinse mouth after each use. levalbutero 2020-09 Yes [id number] .63mg Inhale [facility] l 0.63 mg/3 -09 0.63 mg 3 ity of mL 00:00: (three) [place] nebulizer 00 times Medical solution daily as Branch needed for Wheezing or Shortness of Breath. clotrimazol 2020-09 Yes [id number] Apply to [facility] e-betametha 10-04 area(s) 2 ity of sone cream 00:00: (two) [place] 00 times Medical daily. Branch cyclobenzap 2020-09 Yes [id number] TAKE 1 [facility] rine 5 mg -09 TABLET BY ity o f tablet 00:00: MOUTH [place] 00 EVERY 8 Medical HOURS Branch NEEDED econazole 2020-09 Yes [id number] Apply to [facility] nitrate 1 % 09 area(s) 2 ity of cream 00:00: (two) [place] 00 times Medical daily. Branch albuterol 2020-09 Yes [id number] 2{puff} Inhale 2 [facility] (PROAIR 1-09 Puffs ity of HFA) 90 00:00: every 6 [place] mcg/actuati 00 (six) Medical on inhaler hours as Branc h needed for Wheezing or Shortness of Breath. triamcinolo 2020-09 Yes [id number] Apply to [facility] ne 0.025 % 1-09 area(s) 3 ity of ointment 00:00: (three) [place] 00 times Medical daily. For Branch itching cyanocobala 2020-09 Yes [id number] 1000ug 1 mL by [facility] min 1,000 1-09 Intramuscu ity of mcg/mL 00:00: lar route [place] injection 00 every 2 Medical (two) Branch weeks. levothyroxi 2020-09 Yes [id number] 50ug Take 1 [facility] ne 50 mcg 1-09 tablet by ity o f tablet 00:00: mouth [place] 00 every Medical morning. Branch fluticasone 2020-09 Yes [id number] 2{puff} Inhale 2 [facility] propionate 1-09 Puffs ity of (FLOVENT 00:00: every 12 [place] HFA) 110 00 (twelve) Medical mcg/actuati hours. Branch on inhaler Rinse mouth after each use. levalbutero 2020-09 Yes [id number] .63mg Inhale [facility] l 0.63 mg/3 1-09 0.63 mg 3 ity of mL 00:00: (three) [place] nebulizer 00 times Medical solution daily as Branch needed for Wheezing or Shortness of Breath. clotrimazol 2020-09 Yes [id number] Apply to [facility] e-betametha 1-09 area(s) 2 ity of sone cream 00:00: (two) [place] 00 times Medical daily. Branch cyclobenzap 2020-09 Yes [id number] TAKE 1 [facility] rine 5 mg 1-09 TABLET BY ity o f tablet 00:00: MOUTH [place] 00 EVERY 8 Medical HOURS Branch NEEDED econazole 2020-09 Yes [id number] Apply to [facility] nitrate 1 % -09 area(s) 2 ity of cream 00:00: (two) [place] 00 times Medical daily. Branch albuterol 2020-09 Yes [id number] 2{puff} Inhale 2 [facility] (PROAIR 1-09 Puffs ity of HFA) 90 00:00: every 6 [place] mcg/actuati 00 (six) Medical on inhaler hours as Branc h needed for Wheezing or Shortness of Breath. triamcinolo 2020-09 Yes [id number] Apply to [facility] ne 0.025 % 1-09 area(s) 3 ity of ointment 00:00: (three) [place] 00 times Medical daily. For Branch itching cyanocobala 2020-09 Yes [id number] 1000ug 1 mL by [facility] min 1,000 1-09 Intramuscu ity of mcg/mL 00:00: lar route [place] injection 00 every 2 Medical (two) Branch weeks. levothyroxi 2020-09 Yes [id number] 50ug Take 1 [facility] ne 50 mcg 1-09 tablet by ity o f tablet 00:00: mouth [place] 00 every Medical morning. Branch fluticasone 2020-09 Yes [id number] 2{puff} Inhale 2 [facility] propionate 1-09 Puffs ity of (FLOVENT 00:00: every 12 [place] HFA) 110 00 (twelve) Medical mcg/actuati hours. Branch on inhaler Rinse mouth after each use. levalbutero 2020-09 Yes [id number] .63mg Inhale [facility] l 0.63 mg/3 1-09 0.63 mg 3 ity of mL 00:00: (three) [place] nebulizer 00 times Medical solution daily as Branch needed for Wheezing or Shortness of Breath. clotrimazol 2020-09 Yes [id number] Apply to [facility] e-betametha 1-09 area(s) 2 ity of sone cream 00:00: (two) [place] 00 times Medical daily. Branch cyclobenzap 2020-09 Yes [id number] TAKE 1 [facility] rine 5 mg 1-09 TABLET BY ity o f tablet 00:00: MOUTH [place] 00 EVERY 8 Medical HOURS Branch NEEDED econazole 2020-09 Yes [id number] Apply to [facility] nitrate 1 % -09 area(s) 2 ity of cream 00:00: (two) [place] 00 times Medical daily. Branch albuterol 2020-09 Yes [id number] 2{puff} Inhale 2 [facility] (PROAIR 1-09 Puffs ity of HFA) 90 00:00: every 6 [place] mcg/actuati 00 (six) Medical on inhaler hours as Branc h needed for Wheezing or Shortness of Breath. triamcinolo 2020-09 Yes [id number] Apply to [facility] ne 0.025 % 1-09 area(s) 3 ity of ointment 00:00: (three) [place] 00 times Medical daily. For Branch itching cyanocobala 2020-09 Yes [id number] 1000ug 1 mL by [facility] min 1,000 1-09 Intramuscu ity of mcg/mL 00:00: lar route [place] injection 00 every 2 Medical (two) Branch weeks. levothyroxi 2020-09 Yes [id number] 50ug Take 1 [facility] ne 50 mcg 1-09 tablet by ity o f tablet 00:00: mouth [place] 00 every Medical morning. Branch fluticasone 2020-09 Yes [id number] 2{puff} Inhale 2 [facility] propionate 1-09 Puffs ity of (FLOVENT 00:00: every 12 [place] HFA) 110 00 (twelve) Medical mcg/actuati hours. Branch on inhaler Rinse mouth after each use. levalbutero 2020-09 Yes [id number] .63mg Inhale [facility] l 0.63 mg/3 1-09 0.63 mg 3 ity of mL 00:00: (three) [place] nebulizer 00 times Medical solution daily as Branch needed for Wheezing or Shortness of Breath. clotrimazol 2020-09 Yes [id number] Apply to [facility] e-betametha -09 area(s) 2 ity of sone cream 00:00: (two) [place] 00 times Medical daily. Branch cyclobenzap 2020-09 Yes [id number] TAKE 1 [facility] rine 5 mg 1-09 TABLET BY ity o f tablet 00:00: MOUTH [place] 00 EVERY 8 Medical HOURS Branch NEEDED econazole 2020-09 Yes [id number] Apply to [facility] nitrate 1 % -09 area(s) 2 ity of cream 00:00: (two) [place] 00 times Medical daily. Branch albuterol 2020-09 Yes [id number] 2{puff} Inhale 2 [facility] (PROAIR 1-09 Puffs ity of HFA) 90 00:00: every 6 [place] mcg/actuati 00 (six) Medical on inhaler hours as Branc h needed for Wheezing or Shortness of Breath. triamcinolo 2020-09 Yes [id number] Apply to [facility] ne 0.025 % 1-09 area(s) 3 ity of ointment 00:00: (three) [place] 00 times Medical daily. For Branch itching cyanocobala 2020-09 Yes [id number] 1000ug 1 mL by [facility] min 1,000 1-09 Intramuscu ity of mcg/mL 00:00: lar route [place] injection 00 every 2 Medical (two) Branch weeks. levothyroxi 2020-09 Yes [id number] 50ug Take 1 [facility] ne 50 mcg 1-09 tablet by ity o f tablet 00:00: mouth [place] 00 every Medical morning. Branch fluticasone 2020-09 Yes [id number] 2{puff} Inhale 2 [facility] propionate 1-09 Puffs ity of (FLOVENT 00:00: every 12 [place] HFA) 110 00 (twelve) Medical mcg/actuati hours. Branch on inhaler Rinse mouth after each use. levalbutero 2020-09 Yes [id number] .63mg Inhale [facility] l 0.63 mg/3 1-09 0.63 mg 3 ity of mL 00:00: (three) [place] nebulizer 00 times Medical solution daily as Branch needed for Wheezing or Shortness of Breath. clotrimazol 2020-09 Yes [id number] Apply to [facility] e-betametha 1-09 area(s) 2 ity of sone cream 00:00: (two) [place] 00 times Medical daily. Branch cyclobenzap 2020-09 Yes [id number] TAKE 1 [facility] rine 5 mg 1-09 TABLET BY ity o f tablet 00:00: MOUTH [place] 00 EVERY 8 Medical HOURS Branch NEEDED econazole 2020-09 Yes [id number] Apply to [facility] nitrate 1 % 1-09 area(s) 2 ity of cream 00:00: (two) [place] 00 times Medical daily. Branch albuterol 2020-09 Yes [id number] 2{puff} Inhale 2 [facility] (PROAIR 1-09 Puffs ity of HFA) 90 00:00: every 6 [place] mcg/actuati 00 (six) Medical on inhaler hours as Branc h needed for Wheezing or Shortness of Breath. triamcinolo 2020-09 Yes [id number] Apply to [facility] ne 0.025 % 1-09 area(s) 3 ity of ointment 00:00: (three) [place] 00 times Medical daily. For Branch itching cyanocobala 2020-09 Yes [id number] 1000ug 1 mL by [facility] min 1,000 1-09 Intramuscu ity of mcg/mL 00:00: lar route [place] injection 00 every 2 Medical (two) Branch weeks. levothyroxi 2020-09 Yes [id number] 50ug Take 1 [facility] ne 50 mcg 1-09 tablet by ity o f tablet 00:00: mouth [place] 00 every Medical morning. Branch fluticasone 2020-09 Yes [id number] 2{puff} Inhale 2 [facility] propionate 1-09 Puffs ity of (FLOVENT 00:00: every 12 [place] HFA) 110 00 (twelve) Medical mcg/actuati hours. Branch on inhaler Rinse mouth after each use. levalbutero 2020-09 Yes [id number] .63mg Inhale [facility] l 0.63 mg/3 1-09 0.63 mg 3 ity of mL 00:00: (three) [place] nebulizer 00 times Medical solution daily as Branch needed for Wheezing or Shortness of Breath. clotrimazol 2020-09 Yes [id number] Apply to [facility] e-betametha -09 area(s) 2 ity of sone cream 00:00: (two) [place] 00 times Medical daily. Branch cyclobenzap 2020-09 Yes [id number] TAKE 1 [facility] rine 5 mg -09 TABLET BY ity o f tablet 00:00: MOUTH [place] 00 EVERY 8 Medical HOURS Branch NEEDED econazole 2020-09 Yes [id number] Apply to [facility] nitrate 1 % -09 area(s) 2 ity of cream 00:00: (two) [place] 00 times Medical daily. Branch albuterol 2020-09 Yes [id number] 2{puff} Inhale 2 [facility] (PROAIR 1-09 Puffs ity of HFA) 90 00:00: every 6 [place] mcg/actuati 00 (six) Medical on inhaler hours as Branc h needed for Wheezing or Shortness of Breath. triamcinolo 2020-09 Yes [id number] Apply to [facility] ne 0.025 % -09 area(s) 3 ity of ointment 00:00: (three) [place] 00 times Medical daily. For Branch itching cyanocobala 2020-09 Yes [id number] 1000ug 1 mL by [facility] min 1,000 1-09 Intramuscu ity of mcg/mL 00:00: lar route [place] injection 00 every 2 Medical (two) Branch weeks. levothyroxi 2020-09 Yes [id number] 50ug Take 1 [facility] ne 50 mcg 1-09 tablet by ity o f tablet 00:00: mouth [place] 00 every Medical morning. Branch fluticasone 2020-09 Yes [id number] 2{puff} Inhale 2 [facility] propionate 1-09 Puffs ity of (FLOVENT 00:00: every 12 [place] HFA) 110 00 (twelve) Medical mcg/actuati hours. Branch on inhaler Rinse mouth after each use. levalbutero 2020-09 Yes [id number] .63mg Inhale [facility] l 0.63 mg/3 1-09 0.63 mg 3 ity of mL 00:00: (three) [place] nebulizer 00 times Medical solution daily as Branch needed for Wheezing or Shortness of Breath. clotrimazol 2020-09 Yes [id number] Apply to [facility] e-betametha -09 area(s) 2 ity of sone cream 00:00: (two) [place] 00 times Medical daily. Branch cyclobenzap 2020-09 Yes [id number] TAKE 1 [facility] rine 5 mg -09 TABLET BY ity o f tablet 00:00: MOUTH [place] 00 EVERY 8 Medical HOURS Branch NEEDED econazole 2020-09 Yes [id number] Apply to [facility] nitrate 1 % -09 area(s) 2 ity of cream 00:00: (two) [place] 00 times Medical daily. Branch albuterol 2020-09 Yes [id number] 2{puff} Inhale 2 [facility] (PROAIR 1-09 Puffs ity of HFA) 90 00:00: every 6 [place] mcg/actuati 00 (six) Medical on inhaler hours as Branc h needed for Wheezing or Shortness of Breath. triamcinolo 2020-09 Yes [id number] Apply to [facility] ne 0.025 % -09 area(s) 3 ity of ointment 00:00: (three) [place] 00 times Medical daily. For Branch itching cyanocobala 2020-09 Yes [id number] 1000ug 1 mL by [facility] min 1,000 1-09 Intramuscu ity of mcg/mL 00:00: lar route [place] injection 00 every 2 Medical (two) Branch weeks. levothyroxi 2020-09 Yes [id number] 50ug Take 1 [facility] ne 50 mcg 1-09 tablet by ity o f tablet 00:00: mouth [place] 00 every Medical morning. Branch fluticasone 2020-09 Yes [id number] 2{puff} Inhale 2 [facility] propionate 1-09 Puffs ity of (FLOVENT 00:00: every 12 [place] HFA) 110 00 (twelve) Medical mcg/actuati hours. Branch on inhaler Rinse mouth after each use. levalbutero 2020-09 Yes [id number] .63mg Inhale [facility] l 0.63 mg/3 1-09 0.63 mg 3 ity of mL 00:00: (three) [place] nebulizer 00 times Medical solution daily as Branch needed for Wheezing or Shortness of Breath. clotrimazol 2020-09 Yes [id number] Apply to [facility] e-betametha 1-09 area(s) 2 ity of sone cream 00:00: (two) [place] 00 times Medical daily. Branch cyclobenzap 2020-09 Yes [id number] TAKE 1 [facility] rine 5 mg 1-09 TABLET BY ity o f tablet 00:00: MOUTH [place] 00 EVERY 8 Medical HOURS Branch NEEDED econazole 2020-09 Yes [id number] Apply to [facility] nitrate 1 % -09 area(s) 2 ity of cream 00:00: (two) [place] 00 times Medical daily. Branch albuterol 2020-09 Yes [id number] 2{puff} Inhale 2 [facility] (PROAIR 1-09 Puffs ity of HFA) 90 00:00: every 6 [place] mcg/actuati 00 (six) Medical on inhaler hours as Branc h needed for Wheezing or Shortness of Breath. triamcinolo 2020-09 Yes [id number] Apply to [facility] ne 0.025 % 1-09 area(s) 3 ity of ointment 00:00: (three) [place] 00 times Medical daily. For Branch itching cyanocobala 2020-09 Yes [id number] 1000ug 1 mL by [facility] min 1,000 1-09 Intramuscu ity of mcg/mL 00:00: lar route [place] injection 00 every 2 Medical (two) Branch weeks. levothyroxi 2020-09 Yes [id number] 50ug Take 1 [facility] ne 50 mcg 1-09 tablet by ity o f tablet 00:00: mouth [place] 00 every Medical morning. Branch fluticasone 2020-09 Yes [id number] 2{puff} Inhale 2 [facility] propionate 1-09 Puffs ity of (FLOVENT 00:00: every 12 [place] HFA) 110 00 (twelve) Medical mcg/actuati hours. Branch on inhaler Rinse mouth after each use. levalbutero 2020-09 Yes [id number] .63mg Inhale [facility] l 0.63 mg/3 1-09 0.63 mg 3 ity of mL 00:00: (three) [place] nebulizer 00 times Medical solution daily as Branch needed for Wheezing or Shortness of Breath. clotrimazol 2020-09 Yes [id number] Apply to [facility] e-betametha 09 area(s) 2 ity of sone cream 00:00: (two) [place] 00 times Medical daily. Branch cyclobenzap 2020-09 Yes [id number] TAKE 1 [facility] rine 5 mg -09 TABLET BY ity o f tablet 00:00: MOUTH [place] 00 EVERY 8 Medical HOURS Branch NEEDED econazole 2020-09 Yes [id number] Apply to [facility] nitrate 1 % 10-04 area(s) 2 ity of cream 00:00: (two) [place] 00 times Medical daily. Branch albuterol 2020-09 Yes [id number] 2{puff} Inhale 2 [facility] (PROAIR 1-09 Puffs ity of HFA) 90 00:00: every 6 [place] mcg/actuati 00 (six) Medical on inhaler hours as Branc h needed for Wheezing or Shortness of Breath. triamcinolo 2020-09 Yes [id number] Apply to [facility] ne 0.025 % 10-04 area(s) 3 ity of ointment 00:00: (three) [place] 00 times Medical daily. For Branch itching cyanocobala 2020-09 Yes [id number] 1000ug 1 mL by [facility] min 1,000 1-09 Intramuscu ity of mcg/mL 00:00: lar route [place] injection 00 every 2 Medical (two) Branch weeks. levothyroxi 2020-09 Yes [id number] 50ug Take 1 [facility] ne 50 mcg 1-09 tablet by ity o f tablet 00:00: mouth [place] 00 every Medical morning. Branch fluticasone 2020-09 Yes [id number] 2{puff} Inhale 2 [facility] propionate 1-09 Puffs ity of (FLOVENT 00:00: every 12 [place] HFA) 110 00 (twelve) Medical mcg/actuati hours. Branch on inhaler Rinse mouth after each use. levalbutero 2020-09 Yes [id number] .63mg Inhale [facility] l 0.63 mg/3 1-09 0.63 mg 3 ity of mL 00:00: (three) [place] nebulizer 00 times Medical solution daily as Branch needed for Wheezing or Shortness of Breath. clotrimazol 2020-09 Yes [id number] Apply to [facility] e-betametha 09 area(s) 2 ity of sone cream 00:00: (two) [place] 00 times Medical daily. Branch cyclobenzap 2020-09 Yes [id number] TAKE 1 [facility] rine 5 mg 09 TABLET BY ity o f tablet 00:00: MOUTH [place] 00 EVERY 8 Medical HOURS Branch NEEDED econazole 2020-09 Yes [id number] Apply to [facility] nitrate 1 % 10-04 area(s) 2 ity of cream 00:00: (two) [place] 00 times Medical daily. Branch albuterol 2020-09 Yes [id number] 2{puff} Inhale 2 [facility] (PROAIR 1-09 Puffs ity of HFA) 90 00:00: every 6 [place] mcg/actuati 00 (six) Medical on inhaler hours as Branc h needed for Wheezing or Shortness of Breath. triamcinolo 2020-09 Yes [id number] Apply to [facility] ne 0.025 % 10-04 area(s) 3 ity of ointment 00:00: (three) [place] 00 times Medical daily. For Branch itching cyanocobala 2020-09 Yes [id number] 1000ug 1 mL by [facility] min 1,000 -09 Intramuscu ity of mcg/mL 00:00: lar route [place] injection 00 every 2 Medical (two) Branch weeks. levothyroxi 2020-09 Yes [id number] 50ug Take 1 [facility] ne 50 mcg 1-09 tablet by ity o f tablet 00:00: mouth [place] 00 every Medical morning. Branch fluticasone 2020-09 Yes [id number] 2{puff} Inhale 2 [facility] propionate 1-09 Puffs ity of (FLOVENT 00:00: every 12 [place] HFA) 110 00 (twelve) Medical mcg/actuati hours. Branch on inhaler Rinse mouth after each use. levalbutero 2020-09 Yes [id number] .63mg Inhale [facility] l 0.63 mg/3 1-09 0.63 mg 3 ity of mL 00:00: (three) [place] nebulizer 00 times Medical solution daily as Branch needed for Wheezing or Shortness of Breath. clotrimazol 2020-09 Yes [id number] Apply to [facility] e-betametha 09 area(s) 2 ity of sone cream 00:00: (two) [place] 00 times Medical daily. Branch cyclobenzap 2020-09 Yes [id number] TAKE 1 [facility] rine 5 mg -09 TABLET BY ity o f tablet 00:00: MOUTH [place] 00 EVERY 8 Medical HOURS Branch NEEDED econazole 2020-09 Yes [id number] Apply to [facility] nitrate 1 % 10-04 area(s) 2 ity of cream 00:00: (two) [place] 00 times Medical daily. Branch albuterol 2020-09 Yes [id number] 2{puff} Inhale 2 [facility] (PROAIR 1-09 Puffs ity of HFA) 90 00:00: every 6 [place] mcg/actuati 00 (six) Medical on inhaler hours as Branc h needed for Wheezing or Shortness of Breath. triamcinolo 2020-09 Yes [id number] Apply to [facility] ne 0.025 % 10-04 area(s) 3 ity of ointment 00:00: (three) [place] 00 times Medical daily. For Branch itching cyanocobala 2020-09 Yes [id number] 1000ug 1 mL by [facility] min 1,000 -09 Intramuscu ity of mcg/mL 00:00: lar route [place] injection 00 every 2 Medical (two) Branch weeks. levothyroxi 2020-09 Yes [id number] 50ug Take 1 [facility] ne 50 mcg -09 tablet by ity o f tablet 00:00: mouth [place] 00 every Medical morning. Branch fluticasone 2020-09 Yes [id number] 2{puff} Inhale 2 [facility] propionate 1-09 Puffs ity of (FLOVENT 00:00: every 12 [place] HFA) 110 00 (twelve) Medical mcg/actuati hours. Branch on inhaler Rinse mouth after each use. levalbutero 2020-09 Yes [id number] .63mg Inhale [facility] l 0.63 mg/3 1-09 0.63 mg 3 ity of mL 00:00: (three) [place] nebulizer 00 times Medical solution daily as Branch needed for Wheezing or Shortness of Breath. clotrimazol 2020-09 Yes [id number] Apply to [facility] e-betametha -09 area(s) 2 ity of sone cream 00:00: (two) [place] 00 times Medical daily. Branch cyclobenzap 2020-09 Yes [id number] TAKE 1 [facility] rine 5 mg 1-09 TABLET BY ity o f tablet 00:00: MOUTH [place] 00 EVERY 8 Medical HOURS Branch NEEDED econazole 2020-09 Yes [id number] Apply to [facility] nitrate 1 % -09 area(s) 2 ity of cream 00:00: (two) [place] 00 times Medical daily. Branch albuterol 2020-09 Yes [id number] 2{puff} Inhale 2 [facility] (PROAIR 1-09 Puffs ity of HFA) 90 00:00: every 6 [place] mcg/actuati 00 (six) Medical on inhaler hours as Branc h needed for Wheezing or Shortness of Breath. triamcinolo 2020-09 Yes [id number] Apply to [facility] ne 0.025 % 10-04 area(s) 3 ity of ointment 00:00: (three) [place] 00 times Medical daily. For Branch itching cyanocobala 2020-09 Yes [id number] 1000ug 1 mL by [facility] min 1,000 1-09 Intramuscu ity of mcg/mL 00:00: lar route [place] injection 00 every 2 Medical (two) Branch weeks. levothyroxi 2020-09 Yes [id number] 50ug Take 1 [facility] ne 50 mcg 1-09 tablet by ity o f tablet 00:00: mouth [place] 00 every Medical morning. Branch fluticasone 2020-09 Yes [id number] 2{puff} Inhale 2 [facility] propionate 1-09 Puffs ity of (FLOVENT 00:00: every 12 [place] HFA) 110 00 (twelve) Medical mcg/actuati hours. Branch on inhaler Rinse mouth after each use. levalbutero 2020-09 Yes [id number] .63mg Inhale [facility] l 0.63 mg/3 1-09 0.63 mg 3 ity of mL 00:00: (three) [place] nebulizer 00 times Medical solution daily as Branch needed for Wheezing or Shortness of Breath. clotrimazol 2020-09 Yes [id number] Apply to [facility] e-betametha -09 area(s) 2 ity of sone cream 00:00: (two) [place] 00 times Medical daily. Branch cyclobenzap 2020-09 Yes [id number] TAKE 1 [facility] rine 5 mg 1-09 TABLET BY ity o f tablet 00:00: MOUTH [place] 00 EVERY 8 Medical HOURS Branch NEEDED econazole 2020-09 Yes [id number] Apply to [facility] nitrate 1 % 09 area(s) 2 ity of cream 00:00: (two) [place] 00 times Medical daily. Branch albuterol 2020-09 Yes [id number] 2{puff} Inhale 2 [facility] (PROAIR 1-09 Puffs ity of HFA) 90 00:00: every 6 [place] mcg/actuati 00 (six) Medical on inhaler hours as Branc h needed for Wheezing or Shortness of Breath. triamcinolo 2020-09 Yes [id number] Apply to [facility] ne 0.025 % 10-04 area(s) 3 ity of ointment 00:00: (three) [place] 00 times Medical daily. For Branch itching cyanocobala 2020-09 Yes [id number] 1000ug 1 mL by [facility] min 1,000 1-09 Intramuscu ity of mcg/mL 00:00: lar route [place] injection 00 every 2 Medical (two) Branch weeks. levothyroxi 2020-09 Yes [id number] 50ug Take 1 [facility] ne 50 mcg -09 tablet by ity o f tablet 00:00: mouth [place] 00 every Medical morning. Branch fluticasone 2020-09 Yes [id number] 2{puff} Inhale 2 [facility] propionate 1-09 Puffs ity of (FLOVENT 00:00: every 12 [place] HFA) 110 00 (twelve) Medical mcg/actuati hours. Branch on inhaler Rinse mouth after each use. levalbutero 2020-09 Yes [id number] .63mg Inhale [facility] l 0.63 mg/3 1-09 0.63 mg 3 ity of mL 00:00: (three) [place] nebulizer 00 times Medical solution daily as Branch needed for Wheezing or Shortness of Breath. clotrimazol 2020-09 Yes [id number] Apply to [facility] e-betametha -09 area(s) 2 ity of sone cream 00:00: (two) [place] 00 times Medical daily. Branch cyclobenzap 2020-09 Yes [id number] TAKE 1 [facility] rine 5 mg -09 TABLET BY ity o f tablet 00:00: MOUTH [place] 00 EVERY 8 Medical HOURS Branch NEEDED econazole 2020-09 Yes [id number] Apply to [facility] nitrate 1 % -09 area(s) 2 ity of cream 00:00: (two) [place] 00 times Medical daily. Branch albuterol 2020-09 Yes [id number] 2{puff} Inhale 2 [facility] (PROAIR 1-09 Puffs ity of HFA) 90 00:00: every 6 [place] mcg/actuati 00 (six) Medical on inhaler hours as Branc h needed for Wheezing or Shortness of Breath. triamcinolo 2020-09 Yes [id number] Apply to [facility] ne 0.025 % 10-04 area(s) 3 ity of ointment 00:00: (three) [place] 00 times Medical daily. For Branch itching cyanocobala 2020-09 Yes [id number] 1000ug 1 mL by [facility] min 1,000 1-09 Intramuscu ity of mcg/mL 00:00: lar route [place] injection 00 every 2 Medical (two) Branch weeks. levothyroxi 2020-09 Yes [id number] 50ug Take 1 [facility] ne 50 mcg 09 tablet by ity o f tablet 00:00: mouth [place] 00 every Medical morning. Branch fluticasone 2020-09 Yes [id number] 2{puff} Inhale 2 [facility] propionate 1-09 Puffs ity of (FLOVENT 00:00: every 12 [place] HFA) 110 00 (twelve) Medical mcg/actuati hours. Branch on inhaler Rinse mouth after each use. levalbutero 2020-09 Yes [id number] .63mg Inhale [facility] l 0.63 mg/3 1-09 0.63 mg 3 ity of mL 00:00: (three) [place] nebulizer 00 times Medical solution daily as Branch needed for Wheezing or Shortness of Breath. clotrimazol 2020-09 Yes [id number] Apply to [facility] e-betametha -09 area(s) 2 ity of sone cream 00:00: (two) [place] 00 times Medical daily. Branch cyclobenzap 2020-09 Yes [id number] TAKE 1 [facility] rine 5 mg 1-09 TABLET BY ity o f tablet 00:00: MOUTH [place] 00 EVERY 8 Medical HOURS Branch NEEDED econazole 2020-09 Yes [id number] Apply to [facility] nitrate 1 % -09 area(s) 2 ity of cream 00:00: (two) [place] 00 times Medical daily. Branch albuterol 2020-09 Yes [id number] 2{puff} Inhale 2 [facility] (PROAIR 1-09 Puffs ity of HFA) 90 00:00: every 6 [place] mcg/actuati 00 (six) Medical on inhaler hours as Branc h needed for Wheezing or Shortness of Breath. triamcinolo 2020-09 Yes [id number] Apply to [facility] ne 0.025 % 10-04 area(s) 3 ity of ointment 00:00: (three) [place] 00 times Medical daily. For Branch itching cyanocobala 2020-09 Yes [id number] 1000ug 1 mL by [facility] min 1,000 1-09 Intramuscu ity of mcg/mL 00:00: lar route [place] injection 00 every 2 Medical (two) Branch weeks. levothyroxi 2020-09 Yes [id number] 50ug Take 1 [facility] ne 50 mcg -09 tablet by ity o f tablet 00:00: mouth [place] 00 every Medical morning. Branch fluticasone 2020-09 Yes [id number] 2{puff} Inhale 2 [facility] propionate 1-09 Puffs ity of (FLOVENT 00:00: every 12 [place] HFA) 110 00 (twelve) Medical mcg/actuati hours. Branch on inhaler Rinse mouth after each use. levalbutero 2020-09 Yes [id number] .63mg Inhale [facility] l 0.63 mg/3 1-09 0.63 mg 3 ity of mL 00:00: (three) [place] nebulizer 00 times Medical solution daily as Branch needed for Wheezing or Shortness of Breath. clotrimazol 2020-09 Yes [id number] Apply to [facility] e-betametha -09 area(s) 2 ity of sone cream 00:00: (two) [place] 00 times Medical daily. Branch cyclobenzap 2020-09 Yes [id number] TAKE 1 [facility] rine 5 mg 1-09 TABLET BY ity o f tablet 00:00: MOUTH [place] 00 EVERY 8 Medical HOURS Branch NEEDED econazole 2020-09 Yes [id number] Apply to [facility] nitrate 1 % -09 area(s) 2 ity of cream 00:00: (two) [place] 00 times Medical daily. Branch albuterol 2020-09 Yes [id number] 2{puff} Inhale 2 [facility] (PROAIR 1-09 Puffs ity of HFA) 90 00:00: every 6 [place] mcg/actuati 00 (six) Medical on inhaler hours as Branc h needed for Wheezing or Shortness of Breath. triamcinolo 2020-09 Yes [id number] Apply to [facility] ne 0.025 % 10-04 area(s) 3 ity of ointment 00:00: (three) [place] 00 times Medical daily. For Branch itching cyanocobala 2020-09 Yes [id number] 1000ug 1 mL by [facility] min 1,000 1-09 Intramuscu ity of mcg/mL 00:00: lar route [place] injection 00 every 2 Medical (two) Branch weeks. levothyroxi 2020-09 Yes [id number] 50ug Take 1 [facility] ne 50 mcg -09 tablet by ity o f tablet 00:00: mouth [place] 00 every Medical morning. Branch fluticasone 2020-09 Yes [id number] 2{puff} Inhale 2 [facility] propionate 1-09 Puffs ity of (FLOVENT 00:00: every 12 [place] HFA) 110 00 (twelve) Medical mcg/actuati hours. Branch on inhaler Rinse mouth after each use. levalbutero 2020-09 Yes [id number] .63mg Inhale [facility] l 0.63 mg/3 1-09 0.63 mg 3 ity of mL 00:00: (three) [place] nebulizer 00 times Medical solution daily as Branch needed for Wheezing or Shortness of Breath. clotrimazol 2020-09 Yes [id number] Apply to [facility] e-betametha 1-09 area(s) 2 ity of sone cream 00:00: (two) [place] 00 times Medical daily. Branch cyclobenzap 2020-09 Yes [id number] TAKE 1 [facility] rine 5 mg 1-09 TABLET BY ity o f tablet 00:00: MOUTH [place] 00 EVERY 8 Medical HOURS Branch NEEDED econazole 2020-09 Yes [id number] Apply to [facility] nitrate 1 % -09 area(s) 2 ity of cream 00:00: (two) [place] 00 times Medical daily. Branch albuterol 2020-09 Yes [id number] 2{puff} Inhale 2 [facility] (PROAIR 1-09 Puffs ity of HFA) 90 00:00: every 6 [place] mcg/actuati 00 (six) Medical on inhaler hours as Branc h needed for Wheezing or Shortness of Breath. triamcinolo 2020-09 Yes [id number] Apply to [facility] ne 0.025 % 10-04 area(s) 3 ity of ointment 00:00: (three) [place] 00 times Medical daily. For Branch itching cyanocobala 2020-09 Yes [id number] 1000ug 1 mL by [facility] min 1,000 -09 Intramuscu ity of mcg/mL 00:00: lar route [place] injection 00 every 2 Medical (two) Branch weeks. levothyroxi 2020-09 Yes [id number] 50ug Take 1 [facility] ne 50 mcg -09 tablet by ity o f tablet 00:00: mouth [place] 00 every Medical morning. Branch fluticasone 2020-09 Yes [id number] 2{puff} Inhale 2 [facility] propionate 1-09 Puffs ity of (FLOVENT 00:00: every 12 [place] HFA) 110 00 (twelve) Medical mcg/actuati hours. Branch on inhaler Rinse mouth after each use. levalbutero 2020-09 Yes [id number] .63mg Inhale [facility] l 0.63 mg/3 1-09 0.63 mg 3 ity of mL 00:00: (three) [place] nebulizer 00 times Medical solution daily as Branch needed for Wheezing or Shortness of Breath. clotrimazol 2020-09 Yes [id number] Apply to [facility] e-betametha -09 area(s) 2 ity of sone cream 00:00: (two) [place] 00 times Medical daily. Branch cyclobenzap 2020-09 Yes [id number] TAKE 1 [facility] rine 5 mg 1-09 TABLET BY ity o f tablet 00:00: MOUTH [place] 00 EVERY 8 Medical HOURS Branch NEEDED econazole 2020-09 Yes [id number] Apply to [facility] nitrate 1 % 1-09 area(s) 2 ity of cream 00:00: (two) [place] 00 times Medical daily. Branch albuterol 2020-09 Yes [id number] 2{puff} Inhale 2 [facility] (PROAIR 1-09 Puffs ity of HFA) 90 00:00: every 6 [place] mcg/actuati 00 (six) Medical on inhaler hours as Branc h needed for Wheezing or Shortness of Breath. triamcinolo 2020-09 Yes [id number] Apply to [facility] ne 0.025 % 09 area(s) 3 ity of ointment 00:00: (three) [place] 00 times Medical daily. For Branch itching cyanocobala 2020-09 Yes [id number] 1000ug 1 mL by [facility] min 1,000 1-09 Intramuscu ity of mcg/mL 00:00: lar route [place] injection 00 every 2 Medical (two) Branch weeks. levothyroxi 2020-09 Yes [id number] 50ug Take 1 [facility] ne 50 mcg 1-09 tablet by ity o f tablet 00:00: mouth [place] 00 every Medical morning. Branch fluticasone 2020-09 Yes [id number] 2{puff} Inhale 2 [facility] propionate 1-09 Puffs ity of (FLOVENT 00:00: every 12 [place] HFA) 110 00 (twelve) Medical mcg/actuati hours. Branch on inhaler Rinse mouth after each use. levalbutero 2020-09 Yes [id number] .63mg Inhale [facility] l 0.63 mg/3 1-09 0.63 mg 3 ity of mL 00:00: (three) [place] nebulizer 00 times Medical solution daily as Branch needed for Wheezing or Shortness of Breath. clotrimazol 2020-09 Yes [id number] Apply to [facility] e-betametha 1-09 area(s) 2 ity of sone cream 00:00: (two) [place] 00 times Medical daily. Branch cyclobenzap 2020-09 Yes [id number] TAKE 1 [facility] rine 5 mg 1-09 TABLET BY ity o f tablet 00:00: MOUTH [place] 00 EVERY 8 Medical HOURS Branch NEEDED econazole 2020-09 Yes [id number] Apply to [facility] nitrate 1 % -09 area(s) 2 ity of cream 00:00: (two) [place] 00 times Medical daily. Branch albuterol 2020-09 Yes [id number] 2{puff} Inhale 2 [facility] (PROAIR 1-09 Puffs ity of HFA) 90 00:00: every 6 [place] mcg/actuati 00 (six) Medical on inhaler hours as Branc h needed for Wheezing or Shortness of Breath. triamcinolo 2020-09 Yes [id number] Apply to [facility] ne 0.025 % 10-04 area(s) 3 ity of ointment 00:00: (three) [place] 00 times Medical daily. For Branch itching cyanocobala 2020-09 Yes [id number] 1000ug 1 mL by [facility] min 1,000 -09 Intramuscu ity of mcg/mL 00:00: lar route [place] injection 00 every 2 Medical (two) Branch weeks. levothyroxi 2020-09 Yes [id number] 50ug Take 1 [facility] ne 50 mcg -09 tablet by ity o f tablet 00:00: mouth [place] 00 every Medical morning. Branch fluticasone 2020-09 Yes [id number] 2{puff} Inhale 2 [facility] propionate 1-09 Puffs ity of (FLOVENT 00:00: every 12 [place] HFA) 110 00 (twelve) Medical mcg/actuati hours. Branch on inhaler Rinse mouth after each use. levalbutero 2020-09 Yes [id number] .63mg Inhale [facility] l 0.63 mg/3 1-09 0.63 mg 3 ity of mL 00:00: (three) [place] nebulizer 00 times Medical solution daily as Branch needed for Wheezing or Shortness of Breath. clotrimazol 2020-09 Yes [id number] Apply to [facility] e-betametha -09 area(s) 2 ity of sone cream 00:00: (two) [place] 00 times Medical daily. Branch cyclobenzap 2020-09 Yes [id number] TAKE 1 [facility] rine 5 mg 1-09 TABLET BY ity o f tablet 00:00: MOUTH [place] 00 EVERY 8 Medical HOURS Branch NEEDED econazole 2020-09 Yes [id number] Apply to [facility] nitrate 1 % -09 area(s) 2 ity of cream 00:00: (two) [place] 00 times Medical daily. Branch albuterol 2020-09 Yes [id number] 2{puff} Inhale 2 [facility] (PROAIR 1-09 Puffs ity of HFA) 90 00:00: every 6 [place] mcg/actuati 00 (six) Medical on inhaler hours as Branc h needed for Wheezing or Shortness of Breath. triamcinolo 2020-09 Yes [id number] Apply to [facility] ne 0.025 % -09 area(s) 3 ity of ointment 00:00: (three) [place] 00 times Medical daily. For Branch itching cyanocobala 2020-09 Yes [id number] 1000ug 1 mL by [facility] min 1,000 -09 Intramuscu ity of mcg/mL 00:00: lar route [place] injection 00 every 2 Medical (two) Branch weeks. levothyroxi 2020-09 Yes [id number] 50ug Take 1 [facility] ne 50 mcg -09 tablet by ity o f tablet 00:00: mouth [place] 00 every Medical morning. Branch fluticasone 2020-09 Yes [id number] 2{puff} Inhale 2 [facility] propionate 1-09 Puffs ity of (FLOVENT 00:00: every 12 [place] HFA) 110 00 (twelve) Medical mcg/actuati hours. Branch on inhaler Rinse mouth after each use. levalbutero 2020-09 Yes [id number] .63mg Inhale [facility] l 0.63 mg/3 1-09 0.63 mg 3 ity of mL 00:00: (three) [place] nebulizer 00 times Medical solution daily as Branch needed for Wheezing or Shortness of Breath. clotrimazol 2020-09 Yes [id number] Apply to [facility] e-betametha -09 area(s) 2 ity of sone cream 00:00: (two) [place] 00 times Medical daily. Branch cyclobenzap 2020-09 Yes [id number] TAKE 1 [facility] rine 5 mg -09 TABLET BY ity o f tablet 00:00: MOUTH [place] 00 EVERY 8 Medical HOURS Branch NEEDED econazole 2020-09 Yes [id number] Apply to [facility] nitrate 1 % -09 area(s) 2 ity of cream 00:00: (two) [place] 00 times Medical daily. Branch albuterol 2020-09 Yes [id number] 2{puff} Inhale 2 [facility] (PROAIR 1-09 Puffs ity of HFA) 90 00:00: every 6 [place] mcg/actuati 00 (six) Medical on inhaler hours as Branc h needed for Wheezing or Shortness of Breath. triamcinolo 2020-09 Yes [id number] Apply to [facility] ne 0.025 % -09 area(s) 3 ity of ointment 00:00: (three) [place] 00 times Medical daily. For Branch itching cyanocobala 2020-09 Yes [id number] 1000ug 1 mL by [facility] min 1,000 -09 Intramuscu ity of mcg/mL 00:00: lar route [place] injection 00 every 2 Medical (two) Branch weeks. levothyroxi 2020-09 Yes [id number] 50ug Take 1 [facility] ne 50 mcg -09 tablet by ity o f tablet 00:00: mouth [place] 00 every Medical morning. Branch fluticasone 2020-09 Yes [id number] 2{puff} Inhale 2 [facility] propionate 1-09 Puffs ity of (FLOVENT 00:00: every 12 [place] HFA) 110 00 (twelve) Medical mcg/actuati hours. Branch on inhaler Rinse mouth after each use. levalbutero 2020-09 Yes [id number] .63mg Inhale [facility] l 0.63 mg/3 1-09 0.63 mg 3 ity of mL 00:00: (three) [place] nebulizer 00 times Medical solution daily as Branch needed for Wheezing or Shortness of Breath. clotrimazol 2020-09 Yes [id number] Apply to [facility] e-betametha - area(s) 2 ity of sone cream 00:00: (two) [place] 00 times Medical daily. Branch cyclobenzap 2020-09 Yes [id number] TAKE 1 [facility] rine 5 mg 1-09 TABLET BY ity o f tablet 00:00: MOUTH [place] 00 EVERY 8 Medical HOURS Branch NEEDED econazole 2020-09 Yes [id number] Apply to [facility] nitrate 1 % -09 area(s) 2 ity of cream 00:00: (two) [place] 00 times Medical daily. Branch albuterol 2020-09 Yes [id number] 2{puff} Inhale 2 [facility] (PROAIR 1-09 Puffs ity of HFA) 90 00:00: every 6 [place] mcg/actuati 00 (six) Medical on inhaler hours as Branc h needed for Wheezing or Shortness of Breath. triamcinolo 2020-09 Yes [id number] Apply to [facility] ne 0.025 % 10-04 area(s) 3 ity of ointment 00:00: (three) [place] 00 times Medical daily. For Branch itching cyanocobala 2020-09 Yes [id number] 1000ug 1 mL by [facility] min 1,000 -09 Intramuscu ity of mcg/mL 00:00: lar route [place] injection 00 every 2 Medical (two) Branch weeks. levothyroxi 2020-09 Yes [id number] 50ug Take 1 [facility] ne 50 mcg -09 tablet by ity o f tablet 00:00: mouth [place] 00 every Medical morning. Branch fluticasone 2020-09 Yes [id number] 2{puff} Inhale 2 [facility] propionate 1-09 Puffs ity of (FLOVENT 00:00: every 12 [place] HFA) 110 00 (twelve) Medical mcg/actuati hours. Branch on inhaler Rinse mouth after each use. levalbutero 2020-09 Yes [id number] .63mg Inhale [facility] l 0.63 mg/3 -09 0.63 mg 3 ity of mL 00:00: (three) [place] nebulizer 00 times Medical solution daily as Branch needed for Wheezing or Shortness of Breath. clotrimazol 2020-09 Yes [id number] Apply to [facility] e-betametha 10-04 area(s) 2 ity of sone cream 00:00: (two) [place] 00 times Medical daily. Branch cyclobenzap 2020-09 Yes [id number] TAKE 1 [facility] rine 5 mg -09 TABLET BY ity o f tablet 00:00: MOUTH [place] 00 EVERY 8 Medical HOURS Branch NEEDED econazole 2020-09 Yes [id number] Apply to [facility] nitrate 1 % -09 area(s) 2 ity of cream 00:00: (two) [place] 00 times Medical daily. Branch albuterol 2020-09 Yes [id number] 2{puff} Inhale 2 [facility] (PROAIR 1-09 Puffs ity of HFA) 90 00:00: every 6 [place] mcg/actuati 00 (six) Medical on inhaler hours as Branc h needed for Wheezing or Shortness of Breath. triamcinolo 2020-09 Yes [id number] Apply to [facility] ne 0.025 % -09 area(s) 3 ity of ointment 00:00: (three) [place] 00 times Medical daily. For Branch itching cyanocobala 2020-09 Yes [id number] 1000ug 1 mL by [facility] min 1,000 -09 Intramuscu ity of mcg/mL 00:00: lar route [place] injection 00 every 2 Medical (two) Branch weeks. levothyroxi 2020-09 Yes [id number] 50ug Take 1 [facility] ne 50 mcg 1-09 tablet by ity o f tablet 00:00: mouth [place] 00 every Medical morning. Branch fluticasone 2020-09 Yes [id number] 2{puff} Inhale 2 [facility] propionate 1-09 Puffs ity of (FLOVENT 00:00: every 12 [place] HFA) 110 00 (twelve) Medical mcg/actuati hours. Branch on inhaler Rinse mouth after each use. levalbutero 2020-09 Yes [id number] .63mg Inhale [facility] l 0.63 mg/3 1-09 0.63 mg 3 ity of mL 00:00: (three) [place] nebulizer 00 times Medical solution daily as Branch needed for Wheezing or Shortness of Breath. clotrimazol 2020-09 Yes [id number] Apply to [facility] e-betametha 10-04 area(s) 2 ity of sone cream 00:00: (two) [place] 00 times Medical daily. Branch cyclobenzap 2020-09 Yes [id number] TAKE 1 [facility] rine 5 mg -09 TABLET BY ity o f tablet 00:00: MOUTH [place] 00 EVERY 8 Medical HOURS Branch NEEDED econazole 2020-09 Yes [id number] Apply to [facility] nitrate 1 % -09 area(s) 2 ity of cream 00:00: (two) [place] 00 times Medical daily. Branch albuterol 2020-09 Yes [id number] 2{puff} Inhale 2 [facility] (PROAIR 1-09 Puffs ity of HFA) 90 00:00: every 6 [place] mcg/actuati 00 (six) Medical on inhaler hours as Branc h needed for Wheezing or Shortness of Breath. triamcinolo 2020-09 Yes [id number] Apply to [facility] ne 0.025 % 09 area(s) 3 ity of ointment 00:00: (three) [place] 00 times Medical daily. For Branch itching cyanocobala 2020-09 Yes [id number] 1000ug 1 mL by [facility] min 1,000 -09 Intramuscu ity of mcg/mL 00:00: lar route [place] injection 00 every 2 Medical (two) Branch weeks. levothyroxi 2020-09 Yes [id number] 50ug Take 1 [facility] ne 50 mcg 1-09 tablet by ity o f tablet 00:00: mouth [place] 00 every Medical morning. Branch fluticasone 2020-09 Yes [id number] 2{puff} Inhale 2 [facility] propionate 1-09 Puffs ity of (FLOVENT 00:00: every 12 [place] HFA) 110 00 (twelve) Medical mcg/actuati hours. Branch on inhaler Rinse mouth after each use. levalbutero 2020-09 Yes [id number] .63mg Inhale [facility] l 0.63 mg/3 -09 0.63 mg 3 ity of mL 00:00: (three) [place] nebulizer 00 times Medical solution daily as Branch needed for Wheezing or Shortness of Breath. clotrimazol 2020-09 Yes [id number] Apply to [facility] e-betametha 10-04 area(s) 2 ity of sone cream 00:00: (two) [place] 00 times Medical daily. Branch cyclobenzap 2020-09 Yes [id number] TAKE 1 [facility] rine 5 mg -09 TABLET BY ity o f tablet 00:00: MOUTH [place] 00 EVERY 8 Medical HOURS Branch NEEDED econazole 2020-09 Yes [id number] Apply to [facility] nitrate 1 % 09 area(s) 2 ity of cream 00:00: (two) [place] 00 times Medical daily. Branch albuterol 2020-09 Yes [id number] 2{puff} Inhale 2 [facility] (PROAIR 1-09 Puffs ity of HFA) 90 00:00: every 6 [place] mcg/actuati 00 (six) Medical on inhaler hours as Branc h needed for Wheezing or Shortness of Breath. triamcinolo 2020-09 Yes [id number] Apply to [facility] ne 0.025 % -09 area(s) 3 ity of ointment 00:00: (three) [place] 00 times Medical daily. For Branch itching cyanocobala 2020-09 Yes [id number] 1000ug 1 mL by [facility] min 1,000 -09 Intramuscu ity of mcg/mL 00:00: lar route [place] injection 00 every 2 Medical (two) Branch weeks. levothyroxi 2020-09 Yes [id number] 50ug Take 1 [facility] ne 50 mcg 1-09 tablet by ity o f tablet 00:00: mouth [place] 00 every Medical morning. Branch fluticasone 2020-09 Yes [id number] 2{puff} Inhale 2 [facility] propionate 1-09 Puffs ity of (FLOVENT 00:00: every 12 [place] HFA) 110 00 (twelve) Medical mcg/actuati hours. Branch on inhaler Rinse mouth after each use. levalbutero 2020-09 Yes [id number] .63mg Inhale [facility] l 0.63 mg/3 -09 0.63 mg 3 ity of mL 00:00: (three) [place] nebulizer 00 times Medical solution daily as Branch needed for Wheezing or Shortness of Breath. clotrimazol 2020-09 Yes [id number] Apply to [facility] e-betametha 10-04 area(s) 2 ity of sone cream 00:00: (two) [place] 00 times Medical daily. Branch cyclobenzap 2020-09 Yes [id number] TAKE 1 [facility] rine 5 mg -09 TABLET BY ity o f tablet 00:00: MOUTH [place] 00 EVERY 8 Medical HOURS Branch NEEDED econazole 2020-09 Yes [id number] Apply to [facility] nitrate 1 % -09 area(s) 2 ity of cream 00:00: (two) [place] 00 times Medical daily. Branch albuterol 2020-09 Yes [id number] 2{puff} Inhale 2 [facility] (PROAIR 1-09 Puffs ity of HFA) 90 00:00: every 6 [place] mcg/actuati 00 (six) Medical on inhaler hours as Branc h needed for Wheezing or Shortness of Breath. triamcinolo 2020-09 Yes [id number] Apply to [facility] ne 0.025 % 1-09 area(s) 3 ity of ointment 00:00: (three) [place] 00 times Medical daily. For Branch itching cyanocobala 2020-09 Yes [id number] 1000ug 1 mL by [facility] min 1,000 1-09 Intramuscu ity of mcg/mL 00:00: lar route [place] injection 00 every 2 Medical (two) Branch weeks. levothyroxi 2020-09 Yes [id number] 50ug Take 1 [facility] ne 50 mcg 1-09 tablet by ity o f tablet 00:00: mouth [place] 00 every Medical morning. Branch fluticasone 2020-09 Yes [id number] 2{puff} Inhale 2 [facility] propionate 1-09 Puffs ity of (FLOVENT 00:00: every 12 [place] HFA) 110 00 (twelve) Medical mcg/actuati hours. Branch on inhaler Rinse mouth after each use. levalbutero 2020-09 Yes [id number] .63mg Inhale [facility] l 0.63 mg/3 1-09 0.63 mg 3 ity of mL 00:00: (three) [place] nebulizer 00 times Medical solution daily as Branch needed for Wheezing or Shortness of Breath. clotrimazol 2020-09 Yes [id number] Apply to [facility] e-betametha -09 area(s) 2 ity of sone cream 00:00: (two) [place] 00 times Medical daily. Branch cyclobenzap 2020-09 Yes [id number] TAKE 1 [facility] rine 5 mg -09 TABLET BY ity o f tablet 00:00: MOUTH [place] 00 EVERY 8 Medical HOURS Branch NEEDED econazole 2020-09 Yes [id number] Apply to [facility] nitrate 1 % -09 area(s) 2 ity of cream 00:00: (two) [place] 00 times Medical daily. Branch albuterol 2020-09 Yes [id number] 2{puff} Inhale 2 [facility] (PROAIR 1-09 Puffs ity of HFA) 90 00:00: every 6 [place] mcg/actuati 00 (six) Medical on inhaler hours as Branc h needed for Wheezing or Shortness of Breath. triamcinolo 2020-09 Yes [id number] Apply to [facility] ne 0.025 % 1-09 area(s) 3 ity of ointment 00:00: (three) [place] 00 times Medical daily. For Branch itching cyanocobala 2020-09 Yes [id number] 1000ug 1 mL by [facility] min 1,000 1-09 Intramuscu ity of mcg/mL 00:00: lar route [place] injection 00 every 2 Medical (two) Branch weeks. levothyroxi 2020-09 Yes [id number] 50ug Take 1 [facility] ne 50 mcg 1-09 tablet by ity o f tablet 00:00: mouth [place] 00 every Medical morning. Branch fluticasone 2020-09 Yes [id number] 2{puff} Inhale 2 [facility] propionate 1-09 Puffs ity of (FLOVENT 00:00: every 12 [place] HFA) 110 00 (twelve) Medical mcg/actuati hours. Branch on inhaler Rinse mouth after each use. levalbutero 2020-09 Yes [id number] .63mg Inhale [facility] l 0.63 mg/3 1-09 0.63 mg 3 ity of mL 00:00: (three) [place] nebulizer 00 times Medical solution daily as Branch needed for Wheezing or Shortness of Breath. clotrimazol 2020-09 Yes [id number] Apply to [facility] e-betametha 1-09 area(s) 2 ity of sone cream 00:00: (two) [place] 00 times Medical daily. Branch cyclobenzap 2020-09 Yes [id number] TAKE 1 [facility] rine 5 mg -09 TABLET BY ity o f tablet 00:00: MOUTH [place] 00 EVERY 8 Medical HOURS Branch NEEDED econazole 2020-09 Yes [id number] Apply to [facility] nitrate 1 % -09 area(s) 2 ity of cream 00:00: (two) [place] 00 times Medical daily. Branch albuterol 2020-09 Yes [id number] 2{puff} Inhale 2 [facility] (PROAIR 1-09 Puffs ity of HFA) 90 00:00: every 6 [place] mcg/actuati 00 (six) Medical on inhaler hours as Branc h needed for Wheezing or Shortness of Breath. triamcinolo 2020-09 Yes [id number] Apply to [facility] ne 0.025 % 1-09 area(s) 3 ity of ointment 00:00: (three) [place] 00 times Medical daily. For Branch itching cyanocobala 2020-09 Yes [id number] 1000ug 1 mL by [facility] min 1,000 1-09 Intramuscu ity of mcg/mL 00:00: lar route [place] injection 00 every 2 Medical (two) Branch weeks. levothyroxi 2020-09 Yes [id number] 50ug Take 1 [facility] ne 50 mcg 1-09 tablet by ity o f tablet 00:00: mouth [place] 00 every Medical morning. Branch fluticasone 2020-09 Yes [id number] 2{puff} Inhale 2 [facility] propionate 1-09 Puffs ity of (FLOVENT 00:00: every 12 [place] HFA) 110 00 (twelve) Medical mcg/actuati hours. Branch on inhaler Rinse mouth after each use. levalbutero 2020-09 Yes [id number] .63mg Inhale [facility] l 0.63 mg/3 1-09 0.63 mg 3 ity of mL 00:00: (three) [place] nebulizer 00 times Medical solution daily as Branch needed for Wheezing or Shortness of Breath. clotrimazol 2020-09 Yes [id number] Apply to [facility] e-betametha -09 area(s) 2 ity of sone cream 00:00: (two) [place] 00 times Medical daily. Branch cyclobenzap 2020-09 Yes [id number] TAKE 1 [facility] rine 5 mg -09 TABLET BY ity o f tablet 00:00: MOUTH [place] 00 EVERY 8 Medical HOURS Branch NEEDED econazole 2020-09 Yes [id number] Apply to [facility] nitrate 1 % 10-04 area(s) 2 ity of cream 00:00: (two) [place] 00 times Medical daily. Branch albuterol 2020-09 Yes [id number] 2{puff} Inhale 2 [facility] (PROAIR 1-09 Puffs ity of HFA) 90 00:00: every 6 [place] mcg/actuati 00 (six) Medical on inhaler hours as Branc h needed for Wheezing or Shortness of Breath. triamcinolo 2020-09 Yes [id number] Apply to [facility] ne 0.025 % 1-09 area(s) 3 ity of ointment 00:00: (three) [place] 00 times Medical daily. For Branch itching cyanocobala 2020-09 Yes [id number] 1000ug 1 mL by [facility] min 1,000 1-09 Intramuscu ity of mcg/mL 00:00: lar route [place] injection 00 every 2 Medical (two) Branch weeks. levothyroxi 2020-09 Yes [id number] 50ug Take 1 [facility] ne 50 mcg 1-09 tablet by ity o f tablet 00:00: mouth [place] 00 every Medical morning. Branch fluticasone 2020-09 Yes [id number] 2{puff} Inhale 2 [facility] propionate 1-09 Puffs ity of (FLOVENT 00:00: every 12 [place] HFA) 110 00 (twelve) Medical mcg/actuati hours. Branch on inhaler Rinse mouth after each use. levalbutero 2020-09 Yes [id number] .63mg Inhale [facility] l 0.63 mg/3 1-09 0.63 mg 3 ity of mL 00:00: (three) [place] nebulizer 00 times Medical solution daily as Branch needed for Wheezing or Shortness of Breath. clotrimazol 2020-09 Yes [id number] Apply to [facility] e-betametha -09 area(s) 2 ity of sone cream 00:00: (two) [place] 00 times Medical daily. Branch cyclobenzap 2020-09 Yes [id number] TAKE 1 [facility] rine 5 mg 1-09 TABLET BY ity o f tablet 00:00: MOUTH [place] 00 EVERY 8 Medical HOURS Branch NEEDED econazole 2020-09 Yes [id number] Apply to [facility] nitrate 1 % 10-04 area(s) 2 ity of cream 00:00: (two) [place] 00 times Medical daily. Branch albuterol 2020-09 Yes [id number] 2{puff} Inhale 2 [facility] (PROAIR 1-09 Puffs ity of HFA) 90 00:00: every 6 [place] mcg/actuati 00 (six) Medical on inhaler hours as Branc h needed for Wheezing or Shortness of Breath. triamcinolo 2020-09 Yes [id number] Apply to [facility] ne 0.025 % 1-09 area(s) 3 ity of ointment 00:00: (three) [place] 00 times Medical daily. For Branch itching cyanocobala 2020-09 Yes [id number] 1000ug 1 mL by [facility] min 1,000 1-09 Intramuscu ity of mcg/mL 00:00: lar route [place] injection 00 every 2 Medical (two) Branch weeks. fluticasone 2020-09 Yes [id number] 2{puff} Inhale 2 [facility] propionate 1-09 Puffs ity of (FLOVENT 00:00: every 12 [place] HFA) 110 00 (twelve) Medical mcg/actuati hours. Branch on inhaler Rinse mouth after each use. levalbutero 2020-09 Yes [id number] .63mg Inhale [facility] l 0.63 mg/3 1-09 0.63 mg 3 ity of mL 00:00: (three) [place] nebulizer 00 times Medical solution daily as Branch needed for Wheezing or Shortness of Breath. clotrimazol 2020-09 Yes [id number] Apply to [facility] e-betametha 1-09 area(s) 2 ity of sone cream 00:00: (two) [place] 00 times Medical daily. Branch cyclobenzap 2020-09 Yes [id number] TAKE 1 [facility] rine 5 mg 10-04 TABLET BY ity o f tablet 00:00: MOUTH [place] 00 EVERY 8 Medical HOURS Branch NEEDED econazole 2020-09 Yes [id number] Apply to [facility] nitrate 1 % -09 area(s) 2 ity of cream 00:00: (two) [place] 00 times Medical daily. Branch albuterol 2020-09 Yes [id number] 2{puff} Inhale 2 [facility] (PROAIR 1-09 Puffs ity of HFA) 90 00:00: every 6 [place] mcg/actuati 00 (six) Medical on inhaler hours as Branc h needed for Wheezing or Shortness of Breath. triamcinolo 2020-09 Yes [id number] Apply to [facility] ne 0.025 % 1-09 area(s) 3 ity of ointment 00:00: (three) [place] 00 times Medical daily. For Branch itching cyanocobala 2020-09 Yes [id number] 1000ug 1 mL by [facility] min 1,000 1-09 Intramuscu ity of mcg/mL 00:00: lar route [place] injection 00 every 2 Medical (two) Branch weeks. fluticasone 2020-09 Yes [id number] 2{puff} Inhale 2 [facility] propionate 1-09 Puffs ity of (FLOVENT 00:00: every 12 [place] HFA) 110 00 (twelve) Medical mcg/actuati hours. Branch on inhaler Rinse mouth after each use. levalbutero 2020-09 Yes [id number] .63mg Inhale [facility] l 0.63 mg/3 1-09 0.63 mg 3 ity of mL 00:00: (three) [place] nebulizer 00 times Medical solution daily as Branch needed for Wheezing or Shortness of Breath. clotrimazol 2020-09 Yes [id number] Apply to [facility] e-betametha 10-04 area(s) 2 ity of sone cream 00:00: (two) [place] 00 times Medical daily. Branch cyclobenzap 2020-09 Yes [id number] TAKE 1 [facility] rine 5 mg 09 TABLET BY ity o f tablet 00:00: MOUTH [place] 00 EVERY 8 Medical HOURS Branch NEEDED econazole 2020-09 Yes [id number] Apply to [facility] nitrate 1 % 10-04 area(s) 2 ity of cream 00:00: (two) [place] 00 times Medical daily. Branch albuterol 2020-09 Yes [id number] 2{puff} Inhale 2 [facility] (PROAIR -09 Puffs ity of HFA) 90 00:00: every 6 [place] mcg/actuati 00 (six) Medical on inhaler hours as Branc h needed for Wheezing or Shortness of Breath. triamcinolo 2020-09 Yes [id number] Apply to [facility] ne 0.025 % 10-04 area(s) 3 ity of ointment 00:00: (three) [place] 00 times Medical daily. For Branch itching cyanocobala 2020-09 Yes [id number] 1000ug 1 mL by [facility] min 1,000 -09 Intramuscu ity of mcg/mL 00:00: lar route [place] injection 00 every 2 Medical (two) Branch weeks. levalbutero 2020-09 Yes [id number] .63mg Inhale [facility] l 0.63 mg/3 -09 0.63 mg 3 ity of mL 00:00: (three) [place] nebulizer 00 times Medical solution daily as Branch needed for Wheezing or Shortness of Breath. cyclobenzap 2020-09 Yes [id number] TAKE 1 [facility] rine 5 mg -09 TABLET BY ity o f tablet 00:00: MOUTH [place] 00 EVERY 8 Medical HOURS Branch NEEDED albuterol 2020-09 Yes [id number] 2{puff} Inhale 2 [facility] (PROAIR 1-09 Puffs ity of HFA) 90 00:00: every 6 [place] mcg/actuati 00 (six) Medical on inhaler hours as Branc h needed for Wheezing or Shortness of Breath. cyanocobala 2020-09 Yes [id number] 1000ug 1 mL by [facility] min 1,000 1-09 Intramuscu ity of mcg/mL 00:00: lar route [place] injection 00 every 2 Medical (two) Branch weeks. levalbutero 2020-09 Yes [id number] .63mg Inhale [facility] l 0.63 mg/3 1-09 0.63 mg 3 ity of mL 00:00: (three) [place] nebulizer 00 times Medical solution daily as Branch needed for Wheezing or Shortness of Breath. cyclobenzap 2020-09 Yes [id number] TAKE 1 [facility] rine 5 mg 1-09 TABLET BY ity o f tablet 00:00: MOUTH [place] 00 EVERY 8 Medical HOURS Branch NEEDED albuterol 2020-09 Yes [id number] 2{puff} Inhale 2 [facility] (PROAIR 1-09 Puffs ity of HFA) 90 00:00: every 6 [place] mcg/actuati 00 (six) Medical on inhaler hours as Branc h needed for Wheezing or Shortness of Breath. cyanocobala 2020-09 Yes [id number] 1000ug 1 mL by [facility] min 1,000 1-09 Intramuscu ity of mcg/mL 00:00: lar route [place] injection 00 every 2 Medical (two) Branch weeks. levalbutero 2020-09 Yes [id number] .63mg Inhale [facility] l 0.63 mg/3 1-09 0.63 mg 3 ity of mL 00:00: (three) [place] nebulizer 00 times Medical solution daily as Branch needed for Wheezing or Shortness of Breath. cyclobenzap 2020-09 Yes [id number] TAKE 1 [facility] rine 5 mg 1-09 TABLET BY ity o f tablet 00:00: MOUTH [place] 00 EVERY 8 Medical HOURS Branch NEEDED albuterol 2020-09 Yes [id number] 2{puff} Inhale 2 [facility] (PROAIR 1-09 Puffs ity of HFA) 90 00:00: every 6 [place] mcg/actuati 00 (six) Medical on inhaler hours as Branc h needed for Wheezing or Shortness of Breath. cyanocobala 2020-09 Yes [id number] 1000ug 1 mL by [facility] min 1,000 1-09 Intramuscu ity of mcg/mL 00:00: lar route [place] injection 00 every 2 Medical (two) Branch weeks. levalbutero 2020-09 Yes [id number] .63mg Inhale [facility] l 0.63 mg/3 1-09 0.63 mg 3 ity of mL 00:00: (three) [place] nebulizer 00 times Medical solution daily as Branch needed for Wheezing or Shortness of Breath. cyclobenzap 2020-09 Yes [id number] TAKE 1 [facility] rine 5 mg 1-09 TABLET BY ity o f tablet 00:00: MOUTH [place] 00 EVERY 8 Medical HOURS Branch NEEDED albuterol 2020-09 Yes [id number] 2{puff} Inhale 2 [facility] (PROAIR 1-09 Puffs ity of HFA) 90 00:00: every 6 [place] mcg/actuati 00 (six) Medical on inhaler hours as Branc h needed for Wheezing or Shortness of Breath. cyanocobala 2020-09 Yes [id number] 1000ug 1 mL by [facility] min 1,000 1-09 Intramuscu ity of mcg/mL 00:00: lar route [place] injection 00 every 2 Medical (two) Branch weeks. levalbutero 2020-09 Yes [id number] .63mg Inhale [facility] l 0.63 mg/3 1-09 0.63 mg 3 ity of mL 00:00: (three) [place] nebulizer 00 times Medical solution daily as Branch needed for Wheezing or Shortness of Breath. cyclobenzap 2020-09 Yes [id number] TAKE 1 [facility] rine 5 mg 1-09 TABLET BY ity o f tablet 00:00: MOUTH [place] 00 EVERY 8 Medical HOURS Branch NEEDED albuterol 2020-09 Yes [id number] 2{puff} Inhale 2 [facility] (PROAIR 1-09 Puffs ity of HFA) 90 00:00: every 6 [place] mcg/actuati 00 (six) Medical on inhaler hours as Branc h needed for Wheezing or Shortness of Breath. cyanocobala 2020-09 Yes [id number] 1000ug 1 mL by [facility] min 1,000 1-09 Intramuscu ity of mcg/mL 00:00: lar route [place] injection 00 every 2 Medical (two) Branch weeks. levalbutero 2020-09 Yes [id number] .63mg Inhale [facility] l 0.63 mg/3 1-09 0.63 mg 3 ity of mL 00:00: (three) [place] nebulizer 00 times Medical solution daily as Branch needed for Wheezing or Shortness of Breath. cyclobenzap 2020-09 Yes [id number] TAKE 1 [facility] rine 5 mg 1-09 TABLET BY ity o f tablet 00:00: MOUTH [place] 00 EVERY 8 Medical HOURS Branch NEEDED albuterol 2020-09 Yes [id number] 2{puff} Inhale 2 [facility] (PROAIR 1-09 Puffs ity of HFA) 90 00:00: every 6 [place] mcg/actuati 00 (six) Medical on inhaler hours as Branc h needed for Wheezing or Shortness of Breath. cyanocobala 2020-09 Yes [id number] 1000ug 1 mL by [facility] min 1,000 1-09 Intramuscu ity of mcg/mL 00:00: lar route [place] injection 00 every 2 Medical (two) Branch weeks. levalbutero 2020-09 Yes [id number] .63mg Inhale [facility] l 0.63 mg/3 1-09 0.63 mg 3 ity of mL 00:00: (three) [place] nebulizer 00 times Medical solution daily as Branch needed for Wheezing or Shortness of Breath. cyclobenzap 2020-09 Yes [id number] TAKE 1 [facility] rine 5 mg 1-09 TABLET BY ity o f tablet 00:00: MOUTH [place] 00 EVERY 8 Medical HOURS Branch NEEDED albuterol 2020-09 Yes [id number] 2{puff} Inhale 2 [facility] (PROAIR 1-09 Puffs ity of HFA) 90 00:00: every 6 [place] mcg/actuati 00 (six) Medical on inhaler hours as Branc h needed for Wheezing or Shortness of Breath. cyanocobala 2020-09 Yes [id number] 1000ug 1 mL by [facility] min 1,000 1-09 Intramuscu ity of mcg/mL 00:00: lar route [place] injection 00 every 2 Medical (two) Branch weeks. levalbutero 2020-09 Yes [id number] .63mg Inhale [facility] l 0.63 mg/3 1-09 0.63 mg 3 ity of mL 00:00: (three) [place] nebulizer 00 times Medical solution daily as Branch needed for Wheezing or Shortness of Breath. cyclobenzap 2020-09 Yes [id number] TAKE 1 [facility] rine 5 mg 1-09 TABLET BY ity o f tablet 00:00: MOUTH [place] 00 EVERY 8 Medical HOURS Branch NEEDED albuterol 2020-09 Yes [id number] 2{puff} Inhale 2 [facility] (PROAIR 1-09 Puffs ity of HFA) 90 00:00: every 6 [place] mcg/actuati 00 (six) Medical on inhaler hours as Branc h needed for Wheezing or Shortness of Breath. cyanocobala 2020-09 Yes [id number] 1000ug 1 mL by [facility] min 1,000 1-09 Intramuscu ity of mcg/mL 00:00: lar route [place] injection 00 every 2 Medical (two) Branch weeks. levalbutero 2020-09 Yes [id number] .63mg Inhale [facility] l 0.63 mg/3 1-09 0.63 mg 3 ity of mL 00:00: (three) [place] nebulizer 00 times Medical solution daily as Branch needed for Wheezing or Shortness of Breath. cyclobenzap 2020-09 Yes [id number] TAKE 1 [facility] rine 5 mg 1-09 TABLET BY ity o f tablet 00:00: MOUTH [place] 00 EVERY 8 Medical HOURS Branch NEEDED albuterol 2020-09 Yes [id number] 2{puff} Inhale 2 [facility] (PROAIR 1-09 Puffs ity of HFA) 90 00:00: every 6 [place] mcg/actuati 00 (six) Medical on inhaler hours as Branc h needed for Wheezing or Shortness of Breath. levalbutero 2020-09 Yes [id number] .63mg Inhale [facility] l 0.63 mg/3 1-09 0.63 mg 3 ity of mL 00:00: (three) [place] nebulizer 00 times Medical solution daily as Branch needed for Wheezing or Shortness of Breath. cyclobenzap 2020-09 Yes [id number] TAKE 1 [facility] rine 5 mg 1-09 TABLET BY ity o f tablet 00:00: MOUTH [place] 00 EVERY 8 Medical HOURS Branch NEEDED albuterol 2020-09 Yes [id number] 2{puff} Inhale 2 [facility] (PROAIR 1-09 Puffs ity of HFA) 90 00:00: every 6 [place] mcg/actuati 00 (six) Medical on inhaler hours as Branc h needed for Wheezing or Shortness of Breath. levalbutero 2020-09 Yes [id number] .63mg Inhale [facility] l 0.63 mg/3 1-09 0.63 mg 3 ity of mL 00:00: (three) [place] nebulizer 00 times Medical solution daily as Branch needed for Wheezing or Shortness of Breath. cyclobenzap 2020-09 Yes [id number] TAKE 1 [facility] rine 5 mg 1-09 TABLET BY ity o f tablet 00:00: MOUTH [place] 00 EVERY 8 Medical HOURS Branch NEEDED albuterol 2020-09 Yes [id number] 2{puff} Inhale 2 [facility] (PROAIR 1-09 Puffs ity of HFA) 90 00:00: every 6 [place] mcg/actuati 00 (six) Medical on inhaler hours as Branc h needed for Wheezing or Shortness of Breath. levalbutero 2020-09 Yes [id number] .63mg Inhale [facility] l 0.63 mg/3 1-09 0.63 mg 3 ity of mL 00:00: (three) [place] nebulizer 00 times Medical solution daily as Branch needed for Wheezing or Shortness of Breath. cyclobenzap 2020-09 Yes [id number] TAKE 1 [facility] rine 5 mg 1-09 TABLET BY ity o f tablet 00:00: MOUTH [place] 00 EVERY 8 Medical HOURS Branch NEEDED albuterol 2020-09 Yes [id number] 2{puff} Inhale 2 [facility] (PROAIR 1-09 Puffs ity of HFA) 90 00:00: every 6 [place] mcg/actuati 00 (six) Medical on inhaler hours as Branc h needed for Wheezing or Shortness of Breath. levalbutero 2020-09 Yes [id number] .63mg Inhale [facility] l 0.63 mg/3 1-09 0.63 mg 3 ity of mL 00:00: (three) [place] nebulizer 00 times Medical solution daily as Branch needed for Wheezing or Shortness of Breath. cyclobenzap 2020-09 Yes [id number] TAKE 1 [facility] rine 5 mg 1-09 TABLET BY ity o f tablet 00:00: MOUTH [place] 00 EVERY 8 Medical HOURS Branch NEEDED albuterol 2020-09 Yes [id number] 2{puff} Inhale 2 [facility] (PROAIR 1-09 Puffs ity of HFA) 90 00:00: every 6 [place] mcg/actuati 00 (six) Medical on inhaler hours as Branc h needed for Wheezing or Shortness of Breath. levalbutero 2020-09 Yes [id number] .63mg Inhale [facility] l 0.63 mg/3 1-09 0.63 mg 3 ity of mL 00:00: (three) [place] nebulizer 00 times Medical solution daily as Branch needed for Wheezing or Shortness of Breath. cyclobenzap 2020-09 Yes [id number] TAKE 1 [facility] rine 5 mg 1-09 TABLET BY ity o f tablet 00:00: MOUTH [place] 00 EVERY 8 Medical HOURS Branch NEEDED albuterol 2020-09 Yes [id number] 2{puff} Inhale 2 [facility] (PROAIR 1-09 Puffs ity of HFA) 90 00:00: every 6 [place] mcg/actuati 00 (six) Medical on inhaler hours as Branc h needed for Wheezing or Shortness of Breath. levalbutero 2020-09 Yes [id number] .63mg Inhale [facility] l 0.63 mg/3 1-09 0.63 mg 3 ity of mL 00:00: (three) [place] nebulizer 00 times Medical solution daily as Branch needed for Wheezing or Shortness of Breath. cyclobenzap 2020-09 Yes [id number] TAKE 1 [facility] rine 5 mg 1-09 TABLET BY ity o f tablet 00:00: MOUTH [place] 00 EVERY 8 Medical HOURS Branch NEEDED albuterol 2020-09 Yes [id number] 2{puff} Inhale 2 [facility] (PROAIR 1-09 Puffs ity of HFA) 90 00:00: every 6 [place] mcg/actuati 00 (six) Medical on inhaler hours as Branc h needed for Wheezing or Shortness of Breath. levalbutero 2020-09 Yes [id number] .63mg Inhale [facility] l 0.63 mg/3 1-09 0.63 mg 3 ity of mL 00:00: (three) [place] nebulizer 00 times Medical solution daily as Branch needed for Wheezing or Shortness of Breath. cyclobenzap 2020-09 Yes [id number] TAKE 1 [facility] rine 5 mg 1-09 TABLET BY ity o f tablet 00:00: MOUTH [place] 00 EVERY 8 Medical HOURS Branch NEEDED albuterol 2020-09 Yes [id number] 2{puff} Inhale 2 [facility] (PROAIR 1-09 Puffs ity of HFA) 90 00:00: every 6 [place] mcg/actuati 00 (six) Medical on inhaler hours as Branc h needed for Wheezing or Shortness of Breath. levalbutero 2020-09 Yes [id number] .63mg Inhale [facility] l 0.63 mg/3 1-09 0.63 mg 3 ity of mL 00:00: (three) [place] nebulizer 00 times Medical solution daily as Branch needed for Wheezing or Shortness of Breath. cyclobenzap 2020-09 Yes [id number] TAKE 1 [facility] rine 5 mg 1-09 TABLET BY ity o f tablet 00:00: MOUTH [place] 00 EVERY 8 Medical HOURS Branch NEEDED albuterol 2020-09 Yes [id number] 2{puff} Inhale 2 [facility] (PROAIR 1-09 Puffs ity of HFA) 90 00:00: every 6 [place] mcg/actuati 00 (six) Medical on inhaler hours as Branc h needed for Wheezing or Shortness of Breath. levalbutero 2020-09 Yes [id number] .63mg Inhale [facility] l 0.63 mg/3 1-09 0.63 mg 3 ity of mL 00:00: (three) [place] nebulizer 00 times Medical solution daily as Branch needed for Wheezing or Shortness of Breath. cyclobenzap 2020-09 Yes [id number] TAKE 1 [facility] rine 5 mg 1-09 TABLET BY ity o f tablet 00:00: MOUTH [place] 00 EVERY 8 Medical HOURS Branch NEEDED albuterol 2020-09 Yes [id number] 2{puff} Inhale 2 [facility] (PROAIR 1-09 Puffs ity of HFA) 90 00:00: every 6 [place] mcg/actuati 00 (six) Medical on inhaler hours as Branc h needed for Wheezing or Shortness of Breath. levalbutero 2020-09 Yes [id number] .63mg Inhale [facility] l 0.63 mg/3 1-09 0.63 mg 3 ity of mL 00:00: (three) [place] nebulizer 00 times Medical solution daily as Branch needed for Wheezing or Shortness of Breath. cyclobenzap 2020-09 Yes [id number] TAKE 1 [facility] rine 5 mg 1-09 TABLET BY ity o f tablet 00:00: MOUTH [place] 00 EVERY 8 Medical HOURS Branch NEEDED albuterol 2020-09 Yes [id number] 2{puff} Inhale 2 [facility] (PROAIR 1-09 Puffs ity of HFA) 90 00:00: every 6 [place] mcg/actuati 00 (six) Medical on inhaler hours as Branc h needed for Wheezing or Shortness of Breath. rosuvastati 2020-09 Yes [id number] 10mg Take 1 [facility] n 10 mg 1-09 tablet by ity of tablet 00:00: mouth at [place] 00 bedtime. Medical Branch cyanocobala 2020-09 Yes [id number] 1000ug 1 mL by [facility] min 1,000 1-09 Intramuscu ity of mcg/mL 00:00: lar route [place] injection 00 every 2 Medical (two) Branch weeks. levothyroxi 2020-09 Yes [id number] 50ug Take 1 [facility] ne 50 mcg 1-09 tablet by ity o f tablet 00:00: mouth [place] 00 every Medical morning. Branch fluticasone 2020-09 Yes [id number] 2{puff} Inhale 2 [facility] propionate 1-09 Puffs ity of (FLOVENT 00:00: every 12 [place] HFA) 110 00 (twelve) Medical mcg/actuati hours. Branch on inhaler Rinse mouth after each use. levalbutero 2020-09 Yes [id number] .63mg Inhale [facility] l 0.63 mg/3 1-09 0.63 mg 3 ity of mL 00:00: (three) [place] nebulizer 00 times Medical solution daily as Branch needed for Wheezing or Shortness of Breath. losartan 50 2020-09 Yes [id number] 50mg Take 1 [facility] mg tablet 1-09 tablet by ity o f 00:00: mouth 2 [place] 00 (two) Medical times Branch daily. clotrimazol 2020-09 Yes [id number] Apply to [facility] e-betametha - area(s) 2 ity of sone cream 00:00: (two) [place] 00 times Medical daily. Branch cyclobenzap 2020-09 Yes [id number] TAKE 1 [facility] rine 5 mg 1-09 TABLET BY ity o f tablet 00:00: MOUTH [place] 00 EVERY 8 Medical HOURS Branch NEEDED econazole 2020-09 Yes [id number] Apply to [facility] nitrate 1 % 09 area(s) 2 ity of cream 00:00: (two) [place] 00 times Medical daily. Branch albuterol 2020-09 Yes [id number] 2{puff} Inhale 2 [facility] (PROAIR 1-09 Puffs ity of HFA) 90 00:00: every 6 [place] mcg/actuati 00 (six) Medical on inhaler hours as Branc h needed for Wheezing or Shortness of Breath. triamcinolo 2020-09 Yes [id number] Apply to [facility] ne 0.025 % 10-04 area(s) 3 ity of ointment 00:00: (three) [place] 00 times Medical daily. For Branch itching diltiazem 2020-09 Yes [id number] 120mg Take 1 [facility] (CARTIA XT) 09 capsule by it y of 120 mg 24 00:00: mouth 2 [place] hr capsule 00 (two) Medical times Branch daily. rosuvastati 2020-09 Yes [id number] 10mg Take 1 [facility] n 10 mg -09 tablet by ity of tablet 00:00: mouth at [place] 00 bedtime. Medical Branch cyanocobala 2020-09 Yes [id number] 1000ug 1 mL by [facility] min 1,000 -09 Intramuscu ity of mcg/mL 00:00: lar route [place] injection 00 every 2 Medical (two) Branch weeks. levothyroxi 2020-09 Yes [id number] 50ug Take 1 [facility] ne 50 mcg 1-09 tablet by ity o f tablet 00:00: mouth [place] 00 every Medical morning. Branch fluticasone 2020-09 Yes [id number] 2{puff} Inhale 2 [facility] propionate 1-09 Puffs ity of (FLOVENT 00:00: every 12 [place] HFA) 110 00 (twelve) Medical mcg/actuati hours. Branch on inhaler Rinse mouth after each use. levalbutero 2020-09 Yes [id number] .63mg Inhale [facility] l 0.63 mg/3 -09 0.63 mg 3 ity of mL 00:00: (three) [place] nebulizer 00 times Medical solution daily as Branch needed for Wheezing or Shortness of Breath. losartan 50 2020-09 Yes [id number] 50mg Take 1 [facility] mg tablet -09 tablet by ity o f 00:00: mouth 2 [place] 00 (two) Medical times Branch daily. clotrimazol 2020-09 Yes [id number] Apply to [facility] e-betametha 10-04 area(s) 2 ity of sone cream 00:00: (two) [place] 00 times Medical daily. Branch cyclobenzap 2020-09 Yes [id number] TAKE 1 [facility] rine 5 mg 10-04 TABLET BY ity o f tablet 00:00: MOUTH [place] 00 EVERY 8 Medical HOURS Branch NEEDED econazole 2020-09 Yes [id number] Apply to [facility] nitrate 1 % 10-04 area(s) 2 ity of cream 00:00: (two) [place] 00 times Medical daily. Branch albuterol 2020-09 Yes [id number] 2{puff} Inhale 2 [facility] (PROAIR - Puffs ity of HFA) 90 00:00: every 6 [place] mcg/actuati 00 (six) Medical on inhaler hours as Branc h needed for Wheezing or Shortness of Breath. triamcinolo 2020-09 Yes [id number] Apply to [facility] ne 0.025 % 10-04 area(s) 3 ity of ointment 00:00: (three) [place] 00 times Medical daily. For Branch itching diltiazem 2020-09 Yes [id number] 120mg Take 1 [facility] (CARTIA XT) 10-04 capsule by it y of 120 mg 24 00:00: mouth 2 [place] hr capsule 00 (two) Medical times Branch daily. cyanocobala 2020-09 Yes [id number] 1000ug 1 mL by [facility] min 1,000 -09 Intramuscu ity of mcg/mL 00:00: lar route [place] injection 00 every 2 Medical (two) Branch weeks. levothyroxi 2020-09 Yes [id number] 50ug Take 1 [facility] ne 50 mcg -09 tablet by ity o f tablet 00:00: mouth [place] 00 every Medical morning. Branch fluticasone 2020-09 Yes [id number] 2{puff} Inhale 2 [facility] propionate 1-09 Puffs ity of (FLOVENT 00:00: every 12 [place] HFA) 110 00 (twelve) Medical mcg/actuati hours. Branch on inhaler Rinse mouth after each use. levalbutero 2020-09 Yes [id number] .63mg Inhale [facility] l 0.63 mg/3 1-09 0.63 mg 3 ity of mL 00:00: (three) [place] nebulizer 00 times Medical solution daily as Branch needed for Wheezing or Shortness of Breath. losartan 50 2020-09 Yes [id number] 50mg Take 1 [facility] mg tablet -09 tablet by ity o f 00:00: mouth 2 [place] 00 (two) Medical times Branch daily. clotrimazol 2020-09 Yes [id number] Apply to [facility] e-betametha -09 area(s) 2 ity of sone cream 00:00: (two) [place] 00 times Medical daily. Branch cyclobenzap 2020-09 Yes [id number] TAKE 1 [facility] rine 5 mg -09 TABLET BY ity o f tablet 00:00: MOUTH [place] 00 EVERY 8 Medical HOURS Branch NEEDED econazole 2020-09 Yes [id number] Apply to [facility] nitrate 1 % 09 area(s) 2 ity of cream 00:00: (two) [place] 00 times Medical daily. Branch albuterol 2020-09 Yes [id number] 2{puff} Inhale 2 [facility] (PROAIR 1-09 Puffs ity of HFA) 90 00:00: every 6 [place] mcg/actuati 00 (six) Medical on inhaler hours as Branc h needed for Wheezing or Shortness of Breath. triamcinolo 2020-09 Yes [id number] Apply to [facility] ne 0.025 % -09 area(s) 3 ity of ointment 00:00: (three) [place] 00 times Medical daily. For Branch itching diltiazem 2020-09 Yes [id number] 120mg Take 1 [facility] (CARTIA XT) -09 capsule by it y of 120 mg 24 00:00: mouth 2 [place] hr capsule 00 (two) Medical times Branch daily. cyanocobala 2020-09 Yes [id number] 1000ug 1 mL by [facility] min 1,000 -09 Intramuscu ity of mcg/mL 00:00: lar route [place] injection 00 every 2 Medical (two) Branch weeks. levothyroxi 2020-09 Yes [id number] 50ug Take 1 [facility] ne 50 mcg 1-09 tablet by ity o f tablet 00:00: mouth [place] 00 every Medical morning. Branch fluticasone 2020-09 Yes [id number] 2{puff} Inhale 2 [facility] propionate 1-09 Puffs ity of (FLOVENT 00:00: every 12 [place] HFA) 110 00 (twelve) Medical mcg/actuati hours. Branch on inhaler Rinse mouth after each use. levalbutero 2020-09 Yes [id number] .63mg Inhale [facility] l 0.63 mg/3 1-09 0.63 mg 3 ity of mL 00:00: (three) [place] nebulizer 00 times Medical solution daily as Branch needed for Wheezing or Shortness of Breath. losartan 50 2020-09 Yes [id number] 50mg Take 1 [facility] mg tablet 1-09 tablet by ity o f 00:00: mouth 2 [place] 00 (two) Medical times Branch daily. clotrimazol 2020-09 Yes [id number] Apply to [facility] e-betametha -09 area(s) 2 ity of sone cream 00:00: (two) [place] 00 times Medical daily. Branch cyclobenzap 2020-09 Yes [id number] TAKE 1 [facility] rine 5 mg 1-09 TABLET BY ity o f tablet 00:00: MOUTH [place] 00 EVERY 8 Medical HOURS Branch NEEDED econazole 2020-09 Yes [id number] Apply to [facility] nitrate 1 % -09 area(s) 2 ity of cream 00:00: (two) [place] 00 times Medical daily. Branch albuterol 2020-09 Yes [id number] 2{puff} Inhale 2 [facility] (PROAIR 1-09 Puffs ity of HFA) 90 00:00: every 6 [place] mcg/actuati 00 (six) Medical on inhaler hours as Branc h needed for Wheezing or Shortness of Breath. triamcinolo 2020-09 Yes [id number] Apply to [facility] ne 0.025 % 1-09 area(s) 3 ity of ointment 00:00: (three) [place] 00 times Medical daily. For Branch itching diltiazem 2020-09 Yes [id number] 120mg Take 1 [facility] (CARTIA XT) 1-09 capsule by it y of 120 mg 24 00:00: mouth 2 [place] hr capsule 00 (two) Medical times Branch daily. cyanocobala 2020-09 Yes [id number] 1000ug 1 mL by [facility] min 1,000 1-09 Intramuscu ity of mcg/mL 00:00: lar route [place] injection 00 every 2 Medical (two) Branch weeks. levothyroxi 2020-09 Yes [id number] 50ug Take 1 [facility] ne 50 mcg 1-09 tablet by ity o f tablet 00:00: mouth [place] 00 every Medical morning. Branch fluticasone 2020-09 Yes [id number] 2{puff} Inhale 2 [facility] propionate 1-09 Puffs ity of (FLOVENT 00:00: every 12 [place] HFA) 110 00 (twelve) Medical mcg/actuati hours. Branch on inhaler Rinse mouth after each use. levalbutero 2020-09 Yes [id number] .63mg Inhale [facility] l 0.63 mg/3 1-09 0.63 mg 3 ity of mL 00:00: (three) [place] nebulizer 00 times Medical solution daily as Branch needed for Wheezing or Shortness of Breath. losartan 50 2020-09 Yes [id number] 50mg Take 1 [facility] mg tablet -09 tablet by ity o f 00:00: mouth 2 [place] 00 (two) Medical times Branch daily. clotrimazol 2020-09 Yes [id number] Apply to [facility] e-betametha 10-04 area(s) 2 ity of sone cream 00:00: (two) [place] 00 times Medical daily. Branch cyclobenzap 2020-09 Yes [id number] TAKE 1 [facility] rine 5 mg -09 TABLET BY ity o f tablet 00:00: MOUTH [place] 00 EVERY 8 Medical HOURS Branch NEEDED econazole 2020-09 Yes [id number] Apply to [facility] nitrate 1 % 09 area(s) 2 ity of cream 00:00: (two) [place] 00 times Medical daily. Branch albuterol 2020-09 Yes [id number] 2{puff} Inhale 2 [facility] (PROAIR 1-09 Puffs ity of HFA) 90 00:00: every 6 [place] mcg/actuati 00 (six) Medical on inhaler hours as [facility] h needed for Wheezing or Shortness of Breath. triamcinolo 2020-09 Yes [id number] Apply to [facility] ne 0.025 % -09 area(s) 3 ity of ointment 00:00: (three) [place] 00 times Medical daily. For Branch itching diltiazem 2020-09 Yes [id number] 120mg Take 1 [facility] n[facility] (CARTIA XT) -09 capsule by it y of 120 mg 24 00:00: mouth 2 [place] hr capsule 00 (two) Medical times Branch daily. cyanocobala 2020-09 Yes [id number] 1000ug 1 mL by [facility] min 1,000 -09 Intramuscu ity of mcg/mL 00:00: lar route [place] injection 00 every 2 Medical (two) Branch weeks. levothyroxi 2020-09 Yes [id number] 50ug Take 1 [facility] ne 50 mcg -09 tablet by ity o f tablet 00:00: mouth [place] 00 every Medical morning. Branch fluticasone 2020-09 Yes [id number] 2{puff} Inhale 2 [facility] propionate -09 Puffs ity of (FLOVENT 00:00: every 12 [place] HFA) 110 00 (twelve) Medical mcg/actuati hours. Branch on inhaler Rinse mouth after each use. levalbutero 2020-09 Yes [id number] .63mg Inhale [facility] l 0.63 mg/3 -09 0.63 mg 3 ity of mL 00:00: (three) [place] nebulizer 00 times Medical solution daily as Branch needed for Wheezing or Shortness of Breath. losartan 50 2020-09 Yes [id number] 50mg Take 1 [facility] mg tablet -09 tablet by ity o f 00:00: mouth 2 [place] 00 (two) Medical times Branch daily. clotrimazol 2020-09 Yes [id number] Apply to [facility] e-betametha -09 area(s) 2 ity of sone cream 00:00: (two) [place] 00 times Medical daily. Branch cyclobenzap 2020-09 Yes [id number] TAKE 1 [facility] rine 5 mg 1-09 TABLET BY ity o f tablet 00:00: MOUTH [place] 00 EVERY 8 Medical HOURS Branch NEEDED econazole 2020-09 Yes [id number] Apply to [facility] nitrate 1 % 1-09 area(s) 2 ity of cream 00:00: (two) [place] 00 times Medical daily. Branch albuterol 2020-09 Yes [id number] 2{puff} Inhale 2 [facility] (PROAIR 1-09 Puffs ity of HFA) 90 00:00: every 6 [place] mcg/actuati 00 (six) Medical on inhaler hours as Branc h needed for Wheezing or Shortness of Breath. triamcinolo 2020-09 Yes [id number] Apply to [facility] ne 0.025 % -09 area(s) 3 ity of ointment 00:00: (three) [place] 00 times Medical daily. For Branch itching diltiazem 2020-09 Yes [id number] 120mg Take 1 [facility] (CARTIA XT) -09 capsule by it y of 120 mg 24 00:00: mouth 2 [place] hr capsule 00 (two) Medical times Branch daily. cyanocobala 2020-09 Yes [id number] 1000ug 1 mL by [facility] min 1,000 1-09 Intramuscu ity of mcg/mL 00:00: lar route [place] injection 00 every 2 Medical (two) Branch weeks. levothyroxi 2020-09 Yes [id number] 50ug Take 1 [facility] ne 50 mcg 1-09 tablet by ity o f tablet 00:00: mouth [place] 00 every Medical morning. Branch fluticasone 2020-09 Yes [id number] 2{puff} Inhale 2 [facility] propionate 1-09 Puffs ity of (FLOVENT 00:00: every 12 [place] HFA) 110 00 (twelve) Medical mcg/actuati hours. Branch on inhaler Rinse mouth after each use. levalbutero 2020-09 Yes [id number] .63mg Inhale [facility] l 0.63 mg/3 1-09 0.63 mg 3 ity of mL 00:00: (three) [place] nebulizer 00 times Medical solution daily as Branch needed for Wheezing or Shortness of Breath. losartan 50 2020-09 Yes [id number] 50mg Take 1 [facility] mg tablet 1-09 tablet by ity o f 00:00: mouth 2 [place] 00 (two) Medical times Branch daily. clotrimazol 2020-09 Yes [id number] Apply to [facility] e-betametha -09 area(s) 2 ity of sone cream 00:00: (two) [place] 00 times Medical daily. Branch cyclobenzap 2020-09 Yes [id number] TAKE 1 [facility] rine 5 mg 1-09 TABLET BY ity o f tablet 00:00: MOUTH [place] 00 EVERY 8 Medical HOURS Branch NEEDED econazole 2020-09 Yes [id number] Apply to [facility] nitrate 1 % 1-09 area(s) 2 ity of cream 00:00: (two) [place] 00 times Medical daily. Branch albuterol 2020-09 Yes [id number] 2{puff} Inhale 2 [facility] (PROAIR 1-09 Puffs ity of HFA) 90 00:00: every 6 [place] mcg/actuati 00 (six) Medical on inhaler hours as Branc h needed for Wheezing or Shortness of Breath. triamcinolo 2020-09 Yes [id number] Apply to [facility] ne 0.025 % 1-09 area(s) 3 ity of ointment 00:00: (three) [place] 00 times Medical daily. For Branch itching diltiazem 2020-09 Yes [id number] 120mg Take 1 [facility] nivers (CARTIA XT) 1-09 capsule by it y of 120 mg 24 00:00: mouth 2 [place] hr capsule 00 (two) Medical times Branch daily. cyanocobala 2020-09 Yes [id number] 1000ug 1 mL by [facility] min 1,000 1-09 Intramuscu ity of mcg/mL 00:00: lar route [place] injection 00 every 2 Medical (two) Branch weeks. levothyroxi 2020-09 Yes [id number] 50ug Take 1 [facility] ne 50 mcg 1-09 tablet by ity o f tablet 00:00: mouth [place] 00 every Medical morning. Branch fluticasone 2020-09 Yes [id number] 2{puff} Inhale 2 [facility] propionate 1-09 Puffs ity of (FLOVENT 00:00: every 12 [place] HFA) 110 00 (twelve) Medical mcg/actuati hours. Branch on inhaler Rinse mouth after each use. levalbutero 2020-09 Yes [id number] .63mg Inhale [facility] l 0.63 mg/3 1-09 0.63 mg 3 ity of mL 00:00: (three) [place] nebulizer 00 times Medical solution daily as Branch needed for Wheezing or Shortness of Breath. losartan 50 2020-09 Yes [id number] 50mg Take 1 [facility] mg tablet 1-09 tablet by ity o f 00:00: mouth 2 [place] 00 (two) Medical times Branch daily. clotrimazol 2020-09 Yes [id number] Apply to [facility] e-betametha -09 area(s) 2 ity of sone cream 00:00: (two) [place] 00 times Medical daily. Branch cyclobenzap 2020-09 Yes [id number] TAKE 1 [facility] rine 5 mg -09 TABLET BY ity o f tablet 00:00: MOUTH [place] 00 EVERY 8 Medical HOURS Branch NEEDED econazole 2020-09 Yes [id number] Apply to [facility] nitrate 1 % 10-04 area(s) 2 ity of cream 00:00: (two) [place] 00 times Medical daily. Branch albuterol 2020-09 Yes [id number] 2{puff} Inhale 2 [facility] (PROAIR 1-09 Puffs ity of HFA) 90 00:00: every 6 [place] mcg/actuati 00 (six) Medical on inhaler hours as Branc h needed for Wheezing or Shortness of Breath. triamcinolo 2020-09 Yes [id number] Apply to [facility] ne 0.025 % 10-04 area(s) 3 ity of ointment 00:00: (three) [place] 00 times Medical daily. For Branch itching diltiazem 2020-09 Yes [id number] 120mg Take 1 [facility] nivers (CARTIA XT) 09 capsule by it y of 120 mg 24 00:00: mouth 2 [place] hr capsule 00 (two) Medical times Branch daily. cyanocobala 2020-09 Yes [id number] 1000ug 1 mL by [facility] min 1,000 1-09 Intramuscu ity of mcg/mL 00:00: lar route [place] injection 00 every 2 Medical (two) Branch weeks. levothyroxi 2020-09 Yes [id number] 50ug Take 1 [facility] ne 50 mcg -09 tablet by ity o f tablet 00:00: mouth [place] 00 every Medical morning. Branch fluticasone 2020-09 Yes [id number] 2{puff} Inhale 2 [facility] propionate 1-09 Puffs ity of (FLOVENT 00:00: every 12 [place] HFA) 110 00 (twelve) Medical mcg/actuati hours. Branch on inhaler Rinse mouth after each use. levalbutero 2020-09 Yes [id number] .63mg Inhale [facility] l 0.63 mg/3 1-09 0.63 mg 3 ity of mL 00:00: (three) [place] nebulizer 00 times Medical solution daily as Branch needed for Wheezing or Shortness of Breath. losartan 50 2020-09 Yes [id number] 50mg Take 1 [facility] mg tablet -09 tablet by ity o f 00:00: mouth 2 [place] 00 (two) Medical times Branch daily. clotrimazol 2020-09 Yes [id number] Apply to [facility] e-betametha 09 area(s) 2 ity of sone cream 00:00: (two) [place] 00 times Medical daily. Branch cyclobenzap 2020-09 Yes [id number] TAKE 1 [facility] rine 5 mg 10-04 TABLET BY ity o f tablet 00:00: MOUTH [place] 00 EVERY 8 Medical HOURS Branch NEEDED econazole 2020-09 Yes [id number] Apply to [facility] nitrate 1 % 10-04 area(s) 2 ity of cream 00:00: (two) [place] 00 times Medical daily. Branch albuterol 2020-09 Yes [id number] 2{puff} Inhale 2 [facility] (PROAIR -09 Puffs ity of HFA) 90 00:00: every 6 [place] mcg/actuati 00 (six) Medical on inhaler hours as Branc h needed for Wheezing or Shortness of Breath. triamcinolo 2020-09 Yes [id number] Apply to [facility] ne 0.025 % 10-04 area(s) 3 ity of ointment 00:00: (three) [place] 00 times Medical daily. For Branch itching diltiazem 2020-09 Yes [id number] 120mg Take 1 [facility] nivers (CARTIA XT) 09 capsule by it y of 120 mg 24 00:00: mouth 2 [place] hr capsule 00 (two) Medical times Branch daily. cyanocobala 2020-09 Yes [id number] 1000ug 1 mL by [facility] min 1,000 -09 Intramuscu ity of mcg/mL 00:00: lar route [place] injection 00 every 2 Medical (two) Branch weeks. levothyroxi 2020-09 Yes [id number] 50ug Take 1 [facility] ne 50 mcg 1-09 tablet by ity o f tablet 00:00: mouth [place] 00 every Medical morning. Branch fluticasone 2020-09 Yes [id number] 2{puff} Inhale 2 [facility] propionate 1-09 Puffs ity of (FLOVENT 00:00: every 12 [place] HFA) 110 00 (twelve) Medical mcg/actuati hours. Branch on inhaler Rinse mouth after each use. levalbutero 2020-09 Yes [id number] .63mg Inhale [facility] l 0.63 mg/3 1-09 0.63 mg 3 ity of mL 00:00: (three) [place] nebulizer 00 times Medical solution daily as Branch needed for Wheezing or Shortness of Breath. losartan 50 2020-09 Yes [id number] 50mg Take 1 [facility] mg tablet 1-09 tablet by ity o f 00:00: mouth 2 [place] 00 (two) Medical times Branch daily. clotrimazol 2020-09 Yes [id number] Apply to [facility] e-betametha -09 area(s) 2 ity of sone cream 00:00: (two) [place] 00 times Medical daily. Branch cyclobenzap 2020-09 Yes [id number] TAKE 1 [facility] rine 5 mg -09 TABLET BY ity o f tablet 00:00: MOUTH [place] 00 EVERY 8 Medical HOURS Branch NEEDED econazole 2020-09 Yes [id number] Apply to [facility] nitrate 1 % 10-04 area(s) 2 ity of cream 00:00: (two) [place] 00 times Medical daily. Branch albuterol 2020-09 Yes [id number] 2{puff} Inhale 2 [facility] (PROAIR 1-09 Puffs ity of HFA) 90 00:00: every 6 [place] mcg/actuati 00 (six) Medical on inhaler hours as Branc h needed for Wheezing or Shortness of Breath. triamcinolo 2020-09 Yes [id number] Apply to [facility] ne 0.025 % -09 area(s) 3 ity of ointment 00:00: (three) [place] 00 times Medical daily. For Branch itching diltiazem 2020-09 Yes [id number] 120mg Take 1 [facility] n[facility] (CARTIA XT) -09 capsule by it y of 120 mg 24 00:00: mouth 2 [place] hr capsule 00 (two) Medical times Branch daily. cyanocobala 2020-09 Yes [id number] 1000ug 1 mL by [facility] min 1,000 1-09 Intramuscu ity of mcg/mL 00:00: lar route [place] injection 00 every 2 Medical (two) Branch weeks. levothyroxi 2020-09 Yes [id number] 50ug Take 1 [facility] ne 50 mcg 1-09 tablet by ity o f tablet 00:00: mouth [place] 00 every Medical morning. Branch fluticasone 2020-09 Yes [id number] 2{puff} Inhale 2 [facility] propionate 1-09 Puffs ity of (FLOVENT 00:00: every 12 [place] HFA) 110 00 (twelve) Medical mcg/actuati hours. Branch on inhaler Rinse mouth after each use. levalbutero 2020-09 Yes [id number] .63mg Inhale [facility] l 0.63 mg/3 1-09 0.63 mg 3 ity of mL 00:00: (three) [place] nebulizer 00 times Medical solution daily as Branch needed for Wheezing or Shortness of Breath. losartan 50 2020-09 Yes [id number] 50mg Take 1 [facility] mg tablet 1-09 tablet by ity o f 00:00: mouth 2 [place] 00 (two) Medical times Branch daily. clotrimazol 2020-09 Yes [id number] Apply to [facility] e-betametha -09 area(s) 2 ity of sone cream 00:00: (two) [place] 00 times Medical daily. Branch cyclobenzap 2020-09 Yes [id number] TAKE 1 [facility] rine 5 mg 1-09 TABLET BY ity o f tablet 00:00: MOUTH [place] 00 EVERY 8 Medical HOURS Branch NEEDED econazole 2020-09 Yes [id number] Apply to [facility] nitrate 1 % 1-09 area(s) 2 ity of cream 00:00: (two) [place] 00 times Medical daily. Branch albuterol 2020-09 Yes [id number] 2{puff} Inhale 2 [facility] (PROAIR 1-09 Puffs ity of HFA) 90 00:00: every 6 [place] mcg/actuati 00 (six) Medical on inhaler hours as Branc h needed for Wheezing or Shortness of Breath. triamcinolo 2020-09 Yes [id number] Apply to [facility] ne 0.025 % 1-09 area(s) 3 ity of ointment 00:00: (three) [place] 00 times Medical daily. For Branch itching diltiazem 2020-09 Yes [id number] 120mg Take 1 [facility] (CARTIA XT) 10-04 capsule by it y of 120 mg 24 00:00: mouth 2 [place] hr capsule 00 (two) Medical times Branch daily. cyanocobala 2020-09- No [id number] 1000ug 1 mL by [facility] min 1,000 10-04 Intramuscu ity of mcg/mL 00:00: 00:00 lar route [place] injection 00 :00 every 2 Medical (two) Branch weeks. fluticasone 2020-09- No [id number] 2{puff} Inhale 2 [facility] propionate 10-04 Puffs ity of (FLOVENT 00:00: 00:00 every 12 [place] HFA[place] 110 00 :00 (twelve) Medical mcg/actuati hours. Branch on inhaler Rinse mouth after each use. clotrimazol 2020-09- No [id number] Apply to [facility] e-betametha 10-04 area(s) 2 it y of sone cream 00:00: 00:00 (two) [place] 00 :00 times Medical daily. Branch econazole 2020-09- No [id number] Apply to [facility] nitrate 1 % 10-04 area(s) 2 it y of cream 00:00: 00:00 (two) [place] 00 :00 times Medical daily. Branch triamcinolo 2020-09- No [id number] Apply to [facility] ne 0.025 % 10-04 area(s) 3 ity of ointment 00:00: 00:00 (three) [place] 00 :00 times Medical daily. For Branch itching fluticasone 2020-09- No [id number] 2{puff} Inhale 2 [facility] propionate 10-04 Puffs ity of (FLOVENT 00:00: 00:00 every 12 [place] HFA) 110 00 :00 (twelve) Medical mcg/actuati hours. Branch on inhaler Rinse mouth after each use. clotrimazol 2020-09- No [id number] Apply to [facility] e-betametha 10-04 area(s) 2 it y of sone cream 00:00: 00:00 (two) [place] 00 :00 times Medical daily. Branch econazole 2020-09- No [id number] Apply to [facility] nitrate 1 % 10-04 area(s) 2 it y of cream 00:00: 00:00 (two) [place] 00 :00 times Medical daily. Branch triamcinolo 2020-09- No [id number] Apply to [facility] ne 0.025 % 10-04 area(s) 3 ity of ointment 00:00: 00:00 (three) [place] 00 :00 times Medical daily. For Branch itching levothyroxi 2020-09- No [id number] 50ug Take 1 [facility] ne 50 mcg 10-04 tablet by ity of tablet 00:00: 00:00 mouth [place] 00 :00 every Medical morning. Branch losartan 50 2020-09- No [id number] 50mg Take 1 [facility] mg tablet 10-04 tablet by ity of 00:00: 00:00 mouth 2 [place] 00 :00 (two) Medical times Branch daily. diltiazem 2020-09- No [id number] 120mg Take 1 [facility] (CARTIA XT) 10-04 capsule by i ty of 120 mg 24 00:00: 00:00 mouth 2 [place] hr capsule 00 :00 (two) Medical times Branch daily. rosuvastati 2020-09- No [id number] 10mg Take 1 [facility] n 10 mg 10-04 tablet by ity of tablet 00:00: 00:00 mouth at [place] 00 :00 bedtime. Medical Branch rosuvastati 2020-09- No [id number] 10mg Take 1 [facility] n 10 mg [...] [place] 00 Medical Branch FERROUS 2018-0 Yes [id number] TAKE ONE [facility] vers SULFATE 325 8-13 TABLET BY ity of mg (65 mg 00:00: MOUTH [place] iron) 00 THREE Medical tablet TIMES Branch DAILY WITH MEALS FERROUS Yes [id number] TAKE ONE [facility] vers SULFATE 325 8-13 TABLET BY ity of mg (65 mg 00:00: MOUTH [place] iron) 00 THREE Medical tablet TIMES Branch DAILY WITH MEALS FERROUS Yes [id number] TAKE ONE [facility] vers SULFATE 325 8-13 TABLET BY ity of mg (65 mg 00:00: MOUTH [place] iron) 00 THREE Medical tablet TIMES Branch DAILY WITH MEALS FERROUS Yes [id number] TAKE ONE [facility] vers SULFATE 325 8-13 TABLET BY ity of mg (65 mg 00:00: MOUTH [place] iron) 00 THREE Medical tablet TIMES Branch DAILY WITH MEALS FERROUS Yes [id number] TAKE ONE [facility] vers SULFATE 325 8-13 TABLET BY ity of mg (65 mg 00:00: MOUTH [place] iron) 00 THREE Medical tablet TIMES Branch DAILY WITH MEALS FERROUS Yes [id number] TAKE ONE [facility] vers SULFATE 325 8-13 TABLET BY ity of mg (65 mg 00:00: MOUTH [place] iron) 00 THREE Medical tablet TIMES Branch DAILY WITH MEALS FERROUS Yes [id number] TAKE ONE [facility] vers SULFATE 325 8-13 TABLET BY ity of mg (65 mg 00:00: MOUTH [place] iron) 00 THREE Medical tablet TIMES Branch DAILY WITH MEALS FERROUS Yes [id number] TAKE ONE [facility] vers SULFATE 325 8-13 TABLET BY ity of mg (65 mg 00:00: MOUTH [place] iron) 00 THREE Medical tablet TIMES Branch DAILY WITH MEALS FERROUS Yes [id number] TAKE ONE [facility] vers SULFATE 325 8-13 TABLET BY ity of mg (65 mg 00:00: MOUTH [place] iron) 00 THREE Medical tablet TIMES Branch DAILY WITH MEALS FERROUS Yes [id number] TAKE ONE [facility] vers SULFATE 325 8-13 TABLET BY ity of mg (65 mg 00:00: MOUTH [place] iron) 00 THREE Medical tablet TIMES Branch DAILY WITH MEALS FERROUS Yes [id number] TAKE ONE [facility] vers SULFATE 325 8-13 TABLET BY ity of mg (65 mg 00:00: MOUTH [place] iron) 00 THREE Medical tablet TIMES Branch DAILY WITH MEALS FERROUS Yes [id number] TAKE ONE [facility] vers SULFATE 325 8-13 TABLET BY ity of mg (65 mg 00:00: MOUTH [place] iron) 00 THREE Medical tablet TIMES Branch DAILY WITH MEALS FERROUS Yes [id number] TAKE ONE [facility] vers SULFATE 325 8-13 TABLET BY ity of mg (65 mg 00:00: MOUTH [place] iron) 00 THREE Medical tablet TIMES Branch DAILY WITH MEALS FERROUS Yes [id number] TAKE ONE [facility] vers SULFATE 325 8-13 TABLET BY ity of mg (65 mg 00:00: MOUTH [place] iron) 00 THREE Medical tablet TIMES Branch DAILY WITH MEALS FERROUS Yes [id number] TAKE ONE [facility] vers SULFATE 325 8-13 TABLET BY ity of mg (65 mg 00:00: MOUTH [place] iron) 00 THREE Medical tablet TIMES Branch DAILY WITH MEALS FERROUS Yes [id number] TAKE ONE [facility] vers SULFATE 325 8-13 TABLET BY ity of mg (65 mg 00:00: MOUTH [place] iron) 00 THREE Medical tablet TIMES Branch DAILY WITH MEALS FERROUS Yes [id number] TAKE ONE [facility] vers SULFATE 325 8-13 TABLET BY ity of mg (65 mg 00:00: MOUTH [place] iron) 00 THREE Medical tablet TIMES Branch DAILY WITH MEALS FERROUS Yes [id number] TAKE ONE [facility] vers SULFATE 325 8-13 TABLET BY ity of mg (65 mg 00:00: MOUTH [place] iron) 00 THREE Medical tablet TIMES Branch DAILY WITH MEALS FERROUS Yes [id number] TAKE ONE [facility] vers SULFATE 325 8-13 TABLET BY ity of mg (65 mg 00:00: MOUTH [place] iron) 00 THREE Medical tablet TIMES Branch DAILY WITH MEALS FERROUS Yes [id number] TAKE ONE [facility] vers SULFATE 325 8-13 TABLET BY ity of mg (65 mg 00:00: MOUTH [place] iron) 00 THREE Medical tablet TIMES Branch DAILY WITH MEALS FERROUS Yes [id number] TAKE ONE [facility] vers SULFATE 325 8-13 TABLET BY ity of mg (65 mg 00:00: MOUTH [place] iron) 00 THREE Medical tablet TIMES Branch DAILY WITH MEALS FERROUS Yes [id number] TAKE ONE [facility] vers SULFATE 325 8-13 TABLET BY ity of mg (65 mg 00:00: MOUTH [place] iron) 00 THREE Medical tablet TIMES Branch DAILY WITH MEALS FERROUS Yes [id number] TAKE ONE [facility] vers SULFATE 325 8-13 TABLET BY ity of mg (65 mg 00:00: MOUTH [place] iron) 00 THREE Medical tablet TIMES Branch DAILY WITH MEALS FERROUS Yes [id number] TAKE ONE [facility] vers SULFATE 325 8-13 TABLET BY ity of mg (65 mg 00:00: MOUTH [place] iron) 00 THREE Medical tablet TIMES Branch DAILY WITH MEALS FERROUS Yes [id number] TAKE ONE [facility] vers SULFATE 325 8-13 TABLET BY ity of mg (65 mg 00:00: MOUTH [place] iron) 00 THREE Medical tablet TIMES Branch DAILY WITH MEALS FERROUS Yes [id number] TAKE ONE [facility] vers SULFATE 325 8-13 TABLET BY ity of mg (65 mg 00:00: MOUTH [place] iron) 00 THREE Medical tablet TIMES Branch DAILY WITH MEALS FERROUS Yes [id number] TAKE ONE [facility] vers SULFATE 325 8-13 TABLET BY ity of mg (65 mg 00:00: MOUTH [place] iron) 00 THREE Medical tablet TIMES Branch DAILY WITH MEALS FERROUS Yes [id number] TAKE ONE [facility] vers SULFATE 325 8-13 TABLET BY ity of mg (65 mg 00:00: MOUTH [place] iron) 00 THREE Medical tablet TIMES Branch DAILY WITH MEALS FERROUS Yes [id number] TAKE ONE [facility] vers SULFATE 325 8-13 TABLET BY ity of mg (65 mg 00:00: MOUTH [place] iron) 00 THREE Medical tablet TIMES Branch DAILY WITH MEALS FERROUS Yes [id number] TAKE ONE [facility] vers SULFATE 325 8-13 TABLET BY ity of mg (65 mg 00:00: MOUTH [place] iron) 00 THREE Medical tablet TIMES Branch DAILY WITH MEALS FERROUS Yes [id number] TAKE ONE [facility] vers SULFATE 325 8-13 TABLET BY ity of mg (65 mg 00:00: MOUTH [place] iron) 00 THREE Medical tablet TIMES Branch DAILY WITH MEALS FERROUS Yes [id number] TAKE ONE [facility] vers SULFATE 325 8-13 TABLET BY ity of mg (65 mg 00:00: MOUTH [place] iron) 00 THREE Medical tablet TIMES Branch DAILY WITH MEALS FERROUS Yes [id number] TAKE ONE [facility] vers SULFATE 325 8-13 TABLET BY ity of mg (65 mg 00:00: MOUTH [place] iron) 00 THREE Medical tablet TIMES Branch DAILY WITH MEALS FERROUS Yes [id number] TAKE ONE [facility] vers SULFATE 325 8-13 TABLET BY ity of mg (65 mg 00:00: MOUTH [place] iron) 00 THREE Medical tablet TIMES Branch DAILY WITH MEALS FERROUS Yes [id number] TAKE ONE [facility] vers SULFATE 325 8-13 TABLET BY ity of mg (65 mg 00:00: MOUTH [place] iron) 00 THREE Medical tablet TIMES Branch DAILY WITH MEALS FERROUS Yes [id number] TAKE ONE [facility] vers SULFATE 325 8-13 TABLET BY ity of mg (65 mg 00:00: MOUTH [place] iron) 00 THREE Medical tablet TIMES Branch DAILY WITH MEALS FERROUS Yes [id number] TAKE ONE [facility] vers SULFATE 325 8-13 TABLET BY ity of mg (65 mg 00:00: MOUTH [place] iron) 00 THREE Medical tablet TIMES Branch DAILY WITH MEALS FERROUS Yes [id number] TAKE ONE [facility] vers SULFATE 325 8-13 TABLET BY ity of mg (65 mg 00:00: MOUTH [place] iron) 00 THREE Medical tablet TIMES Branch DAILY WITH MEALS FERROUS Yes [id number] TAKE ONE [facility] vers SULFATE 325 8-13 TABLET BY ity of mg (65 mg 00:00: MOUTH [place] iron) 00 THREE Medical tablet TIMES Branch DAILY WITH MEALS FERROUS Yes [id number] TAKE ONE [facility] vers SULFATE 325 8-13 TABLET BY ity of mg (65 mg 00:00: MOUTH [place] iron) 00 THREE Medical tablet TIMES Branch DAILY WITH MEALS FERROUS Yes [id number] TAKE ONE [facility] vers SULFATE 325 8-13 TABLET BY ity of mg (65 mg 00:00: MOUTH [place] iron) 00 THREE Medical tablet TIMES Branch DAILY WITH MEALS FERROUS Yes [id number] TAKE ONE [facility] vers SULFATE 325 8-13 TABLET BY ity of mg (65 mg 00:00: MOUTH [place] iron) 00 THREE Medical tablet TIMES Branch DAILY WITH MEALS FERROUS Yes [id number] TAKE ONE [facility] vers SULFATE 325 8-13 TABLET BY ity of mg (65 mg 00:00: MOUTH [place] iron) 00 THREE Medical tablet TIMES Branch DAILY WITH MEALS FERROUS Yes [id number] TAKE ONE [facility] vers SULFATE 325 8-13 TABLET BY ity of mg (65 mg 00:00: MOUTH [place] iron) 00 THREE Medical tablet TIMES Branch DAILY WITH MEALS FERROUS 2018-0 Yes [id number] TAKE ONE [facility] vers SULFATE 325 8-13 TABLET BY ity of mg (65 mg 00:00: MOUTH [place] iron) 00 THREE Medical tablet TIMES Branch DAILY WITH MEALS FERROUS Yes [id number] TAKE ONE [facility] vers SULFATE 325 8-13 TABLET BY ity of mg (65 mg 00:00: MOUTH [place] iron) 00 THREE Medical tablet TIMES Branch DAILY WITH MEALS FERROUS Yes [id number] TAKE ONE [facility] vers SULFATE 325 8-13 TABLET BY ity of mg (65 mg 00:00: MOUTH [place] iron) 00 THREE Medical tablet TIMES Branch DAILY WITH MEALS FERROUS Yes [id number] TAKE ONE [facility] vers SULFATE 325 8-13 TABLET BY ity of mg (65 mg 00:00: MOUTH [place] iron) 00 THREE Medical tablet TIMES Branch DAILY WITH MEALS FERROUS Yes [id number] TAKE ONE [facility] vers SULFATE 325 8-13 TABLET BY ity of mg (65 mg 00:00: MOUTH [place] iron) 00 THREE Medical tablet TIMES Branch DAILY WITH MEALS FERROUS Yes [id number] TAKE ONE [facility] vers SULFATE 325 8-13 TABLET BY ity of mg (65 mg 00:00: MOUTH [place] iron) 00 THREE Medical tablet TIMES Branch DAILY WITH MEALS FERROUS Yes [id number] TAKE ONE [facility] vers SULFATE 325 8-13 TABLET BY ity of mg (65 mg 00:00: MOUTH [place] iron) 00 THREE Medical tablet TIMES Branch DAILY WITH MEALS FERROUS Yes [id number] TAKE ONE [facility] vers SULFATE 325 8-13 TABLET BY ity of mg (65 mg 00:00: MOUTH [place] iron) 00 THREE Medical tablet TIMES Branch DAILY WITH MEALS FERROUS Yes [id number] TAKE ONE [facility] vers SULFATE 325 8-13 TABLET BY ity of mg (65 mg 00:00: MOUTH [place] iron) 00 THREE Medical tablet TIMES Branch DAILY WITH MEALS FERROUS Yes [id number] TAKE ONE [facility] vers SULFATE 325 8-13 TABLET BY ity of mg (65 mg 00:00: MOUTH [place] iron) 00 THREE Medical tablet TIMES Branch DAILY WITH MEALS FERROUS Yes [id number] TAKE ONE [facility] vers SULFATE 325 8-13 TABLET BY ity of mg (65 mg 00:00: MOUTH [place] iron) 00 THREE Medical tablet TIMES Branch DAILY WITH MEALS FERROUS Yes [id number] TAKE ONE [facility] vers SULFATE 325 8-13 TABLET BY ity of mg (65 mg 00:00: MOUTH [place] iron) 00 THREE Medical tablet TIMES Branch DAILY WITH MEALS FERROUS Yes [id number] TAKE ONE [facility] vers SULFATE 325 8-13 TABLET BY ity of mg (65 mg 00:00: MOUTH [place] iron) 00 THREE Medical tablet TIMES Branch DAILY WITH MEALS FERROUS Yes [id number] TAKE ONE [facility] vers SULFATE 325 8-13 TABLET BY ity of mg (65 mg 00:00: MOUTH [place] iron) 00 THREE Medical tablet TIMES Branch DAILY WITH MEALS FERROUS Yes [id number] TAKE ONE [facility] vers SULFATE 325 8-13 TABLET BY ity of mg (65 mg 00:00: MOUTH [place] iron) 00 THREE Medical tablet TIMES Branch DAILY WITH MEALS FERROUS Yes [id number] TAKE ONE [facility] vers SULFATE 325 8-13 TABLET BY ity of mg (65 mg 00:00: MOUTH [place] iron) 00 THREE Medical tablet TIMES Branch DAILY WITH MEALS FERROUS Yes [id number] TAKE ONE [facility] vers SULFATE 325 8-13 TABLET BY ity of mg (65 mg 00:00: MOUTH [place] iron) 00 THREE Medical tablet TIMES Branch DAILY WITH MEALS FERROUS Yes [id number] TAKE ONE [facility] vers SULFATE 325 8-13 TABLET BY ity of mg (65 mg 00:00: MOUTH [place] iron) 00 THREE Medical tablet TIMES Branch DAILY WITH MEALS FERROUS Yes [id number] TAKE ONE [facility] vers SULFATE 325 8-13 TABLET BY ity of mg (65 mg 00:00: MOUTH [place] iron) 00 THREE Medical tablet TIMES Branch DAILY WITH MEALS FERROUS Yes [id number] TAKE ONE [facility] vers SULFATE 325 8-13 TABLET BY ity of mg (65 mg 00:00: MOUTH [place] iron) 00 THREE Medical tablet TIMES Branch DAILY WITH MEALS FERROUS Yes [id number] TAKE ONE [facility] vers SULFATE 325 8-13 TABLET BY ity of mg (65 mg 00:00: MOUTH [place] iron) 00 THREE Medical tablet TIMES Branch DAILY WITH MEALS FERROUS Yes [id number] TAKE ONE [facility] vers SULFATE 325 8-13 TABLET BY ity of mg (65 mg 00:00: MOUTH [place] iron) 00 THREE Medical tablet TIMES Branch DAILY WITH MEALS FERROUS Yes [id number] TAKE ONE [facility] vers SULFATE 325 8-13 TABLET BY ity of mg (65 mg 00:00: MOUTH [place] iron) 00 THREE Medical tablet TIMES Branch DAILY WITH MEALS FERROUS Yes [id number] TAKE ONE [facility] vers SULFATE 325 8-13 TABLET BY ity of mg (65 mg 00:00: MOUTH [place] iron) 00 THREE Medical tablet TIMES Branch DAILY WITH MEALS FERROUS Yes [id number] TAKE ONE [facility] vers SULFATE 325 8-13 TABLET BY ity of mg (65 mg 00:00: MOUTH [place] iron) 00 THREE Medical tablet TIMES Branch DAILY WITH MEALS coQ10, Yes [id number] 1{capsu Take 1 U nivers ubiquinol, 1-16 le} capsule by ity of 100 mg Cap 00:00: mouth [place] 00 daily. Medical Branch coQ10, Yes [id number] 1{capsu Take 1 U nivers ubiquinol, 1-16 le} capsule by ity of 100 mg Cap 00:00: mouth [place] 00 daily. [facility] Branch coQ10, Yes [id number] 1{capsu Take 1 U nivers ubiquinol, 1-16 le} capsule by ity of 100 mg Cap 00:00: mouth [place] 00 daily. [facility] Branch coQ10, Yes [id number] 1{capsu Take 1 U nivers ubiquinol, 1-16 le} capsule by ity of 100 mg Cap 00:00: mouth [place] 00 daily. [facility] Branch coQ10, Yes [id number] 1{capsu Take 1 U nivers ubiquinol, 1-16 le} capsule by ity of 100 mg Cap 00:00: mouth [place] 00 daily. [facility] Branch coQ10, Yes [id number] 1{capsu Take 1 U nivers ubiquinol, 1-16 le} capsule by ity of 100 mg Cap 00:00: mouth [place] 00 daily. [facility] Branch coQ10, Yes [id number] 1{capsu Take 1 U nivers ubiquinol, 1-16 le} capsule by ity of 100 mg Cap 00:00: mouth [place] 00 daily. [facility] Branch coQ10, Yes [id number] 1{capsu Take 1 U nivers ubiquinol, 1-16 le} capsule by ity of 100 mg Cap 00:00: mouth [place] 00 daily. [facility] Branch coQ10, Yes [id number] 1{capsu Take 1 U nivers ubiquinol, 1-16 le} capsule by ity of 100 mg Cap 00:00: mouth [place] 00 daily. [facility] Branch coQ10, Yes [id number] 1{capsu Take 1 U nivers ubiquinol, 1-16 le} capsule by ity of 100 mg Cap 00:00: mouth [place] 00 daily. Medical Branch coQ10, Yes [id number] 1{capsu Take 1 U nivers ubiquinol, 1-16 le} capsule by ity of 100 mg Cap 00:00: mouth [place] 00 daily. Medical Branch coQ10, Yes [id number] 1{capsu Take 1 U nivers ubiquinol, 1-16 le} capsule by ity of 100 mg Cap 00:00: mouth [place] 00 daily. Medical Branch coQ10, Yes [id number] 1{capsu Take 1 U nivers ubiquinol, 1-16 le} capsule by ity of 100 mg Cap 00:00: mouth [place] 00 daily. [facility] Branch coQ10, Yes [id number] 1{capsu Take 1 U nivers ubiquinol, 1-16 le} capsule by ity of 100 mg Cap 00:00: mouth [place] 00 daily. Medical Branch coQ10, Yes [id number] 1{capsu Take 1 U nivers ubiquinol, 1-16 le} capsule by ity of 100 mg Cap 00:00: mouth [place] 00 daily. Medical Branch coQ10, Yes [id number] 1{capsu Take 1 U nivers ubiquinol, 1-16 le} capsule by ity of 100 mg Cap 00:00: mouth [place] 00 daily. [facility] Branch coQ10, Yes [id number] 1{capsu Take 1 U nivers ubiquinol, 1-16 le} capsule by ity of 100 mg Cap 00:00: mouth [place] 00 daily. Medical Branch coQ10, Yes [id number] 1{capsu Take 1 U nivers ubiquinol, 1-16 le} capsule by ity of 100 mg Cap 00:00: mouth [place] 00 daily. Medical Branch coQ10, Yes [id number] 1{capsu Take 1 U nivers ubiquinol, 1-16 le} capsule by ity of 100 mg Cap 00:00: mouth [place] 00 daily. [facility] Branch coQ10, Yes [id number] 1{capsu Take 1 U nivers ubiquinol, 1-16 le} capsule by ity of 100 mg Cap 00:00: mouth [place] 00 daily. [facility] Branch coQ10, Yes [id number] 1{capsu Take 1 U nivers ubiquinol, 1-16 le} capsule by ity of 100 mg Cap 00:00: mouth [place] 00 daily. Medical Branch coQ10, Yes [id number] 1{capsu Take 1 U nivers ubiquinol, 1-16 le} capsule by ity of 100 mg Cap 00:00: mouth [place] 00 daily. Medical Branch coQ10, Yes [id number] 1{capsu Take 1 U nivers ubiquinol, 1-16 le} capsule by ity of 100 mg Cap 00:00: mouth [place] 00 daily. Medical Branch coQ10, Yes [id number] 1{capsu Take 1 U nivers ubiquinol, 1-16 le} capsule by ity of 100 mg Cap 00:00: mouth [place] 00 daily. Medical Branch coQ10, Yes [id number] 1{capsu Take 1 U nivers ubiquinol, 1-16 le} capsule by ity of 100 mg Cap 00:00: mouth [place] 00 daily. Medical Branch coQ10, Yes [id number] 1{capsu Take 1 U nivers ubiquinol, 1-16 le} capsule by ity of 100 mg Cap 00:00: mouth [place] 00 daily. Medical Branch coQ10, Yes [id number] 1{capsu Take 1 U nivers ubiquinol, 1-16 le} capsule by ity of 100 mg Cap 00:00: mouth [place] 00 daily. Medical Branch coQ10, Yes [id number] 1{capsu Take 1 U nivers ubiquinol, 1-16 le} capsule by ity of 100 mg Cap 00:00: mouth [place] 00 daily. Medical Branch coQ10, Yes [id number] 1{capsu Take 1 U nivers ubiquinol, 1-16 le} capsule by ity of 100 mg Cap 00:00: mouth [place] 00 daily. Medical Branch coQ10, Yes [id number] 1{capsu Take 1 U nivers ubiquinol, 1-16 le} capsule by ity of 100 mg Cap 00:00: mouth [place] 00 daily. Medical Branch coQ10, Yes [id number] 1{capsu Take 1 U nivers ubiquinol, 1-16 le} capsule by ity of 100 mg Cap 00:00: mouth [place] 00 daily. Medical Branch coQ10, Yes [id number] 1{capsu Take 1 U nivers ubiquinol, 1-16 le} capsule by ity of 100 mg Cap 00:00: mouth [place] 00 daily. Medical Branch coQ10, Yes [id number] 1{capsu Take 1 U nivers ubiquinol, 1-16 le} capsule by ity of 100 mg Cap 00:00: mouth [place] 00 daily. Medical Branch coQ10, Yes [id number] 1{capsu Take 1 U nivers ubiquinol, 1-16 le} capsule by ity of 100 mg Cap 00:00: mouth [place] 00 daily. Medical Branch coQ10, Yes [id number] 1{capsu Take 1 U nivers ubiquinol, 1-16 le} capsule by ity of 100 mg Cap 00:00: mouth [place] 00 daily. Medical Branch coQ10, Yes [id number] 1{capsu Take 1 U nivers ubiquinol, 1-16 le} capsule by ity of 100 mg Cap 00:00: mouth [place] 00 daily. Medical Branch coQ10, Yes [id number] 1{capsu Take 1 U nivers ubiquinol, 1-16 le} capsule by ity of 100 mg Cap 00:00: mouth [place] 00 daily. Medical Branch coQ10, Yes [id number] 1{capsu Take 1 U nivers ubiquinol, 1-16 le} capsule by ity of 100 mg Cap 00:00: mouth [place] 00 daily. Medical Branch coQ10, Yes [id number] 1{capsu Take 1 U nivers ubiquinol, 1-16 le} capsule by ity of 100 mg Cap 00:00: mouth [place] 00 daily. Medical Branch coQ10, Yes [id number] 1{capsu Take 1 U nivers ubiquinol, 1-16 le} capsule by ity of 100 mg Cap 00:00: mouth [place] 00 daily. Medical Branch coQ10, Yes [id number] 1{capsu Take 1 U nivers ubiquinol, 1-16 le} capsule by ity of 100 mg Cap 00:00: mouth [place] 00 daily. Medical Branch coQ10, Yes [id number] 1{capsu Take 1 U nivers ubiquinol, 1-16 le} capsule by ity of 100 mg Cap 00:00: mouth [place] 00 daily. Medical Branch coQ10, Yes [id number] 1{capsu Take 1 U nivers ubiquinol, 1-16 le} capsule by ity of 100 mg Cap 00:00: mouth [place] 00 daily. Medical Branch coQ10, Yes [id number] 1{capsu Take 1 U nivers ubiquinol, 1-16 le} capsule by ity of 100 mg Cap 00:00: mouth [place] 00 daily. Medical Branch coQ10, Yes [id number] 1{capsu Take 1 U nivers ubiquinol, 1-16 le} capsule by ity of 100 mg Cap 00:00: mouth [place] 00 daily. [facility] Branch coQ10, Yes [id number] 1{capsu Take 1 U nivers ubiquinol, 1-16 le} capsule by ity of 100 mg Cap 00:00: mouth [place] 00 daily. [facility] Branch coQ10, Yes [id number] 1{capsu Take 1 U nivers ubiquinol, 1-16 le} capsule by ity of 100 mg Cap 00:00: mouth [place] 00 daily. [facility] Branch coQ10, Yes [id number] 1{capsu Take 1 U nivers ubiquinol, 1-16 le} capsule by ity of 100 mg Cap 00:00: mouth [place] 00 daily. Medical Branch coQ10, Yes [id number] 1{capsu Take 1 U nivers ubiquinol, 1-16 le} capsule by ity of 100 mg Cap 00:00: mouth [place] 00 daily. Medical Branch coQ10, Yes [id number] 1{capsu Take 1 U nivers ubiquinol, 1-16 le} capsule by ity of 100 mg Cap 00:00: mouth [place] 00 daily. Medical Branch coQ10, Yes [id number] 1{capsu Take 1 U nivers ubiquinol, 1-16 le} capsule by ity of 100 mg Cap 00:00: mouth [place] 00 daily. [facility] Branch coQ10, Yes [id number] 1{capsu Take 1 U nivers ubiquinol, 1-16 le} capsule by ity of 100 mg Cap 00:00: mouth [place] 00 daily. Medical Branch coQ10, Yes [id number] 1{capsu Take 1 U nivers ubiquinol, 1-16 le} capsule by ity of 100 mg Cap 00:00: mouth [place] 00 daily. Medical Branch coQ10, Yes [id number] 1{capsu Take 1 U nivers ubiquinol, 1-16 le} capsule by ity of 100 mg Cap 00:00: mouth [place] 00 daily. Medical Branch coQ10, Yes [id number] 1{capsu Take 1 U nivers ubiquinol, 1-16 le} capsule by ity of 100 mg Cap 00:00: mouth [place] 00 daily. Medical Branch coQ10, Yes [id number] 1{capsu Take 1 U nivers ubiquinol, 1-16 le} capsule by ity of 100 mg Cap 00:00: mouth [place] 00 daily. [facility] Branch coQ10, Yes [id number] 1{capsu Take 1 U nivers ubiquinol, 1-16 le} capsule by ity of 100 mg Cap 00:00: mouth [place] 00 daily. [facility] Branch coQ10, Yes [id number] 1{capsu Take 1 U nivers ubiquinol, 1-16 le} capsule by ity of 100 mg Cap 00:00: mouth [place] 00 daily. Medical Branch coQ10, Yes [id number] 1{capsu Take 1 U nivers ubiquinol, 1-16 le} capsule by ity of 100 mg Cap 00:00: mouth [place] 00 daily. [facility] coQ10, Yes [id number] 1{capsu Take 1 U nivers ubiquinol, 1-16 le} capsule by ity of 100 mg Cap 00:00: mouth [place] 00 daily. [facility] coQ10, Yes [id number] 1{capsu Take 1 U nivers ubiquinol, 1-16 le} capsule by ity of 100 mg Cap 00:00: mouth [place] 00 daily. [facility] coQ10, Yes [id number] 1{capsu Take 1 U nivers ubiquinol, 1-16 le} capsule by ity of 100 mg Cap 00:00: mouth [place] 00 daily. [facility] coQ10, Yes [id number] 1{capsu Take 1 U nivers ubiquinol, 1-16 le} capsule by ity of 100 mg Cap 00:00: mouth [place] 00 daily. [facility] coQ10, Yes [id number] 1{capsu Take 1 U nivers ubiquinol, 1-16 le} capsule by ity of 100 mg Cap 00:00: mouth [place] 00 daily. [facility] coQ10, Yes [id number] 1{capsu Take 1 U nivers ubiquinol, 1-16 le} capsule by ity of 100 mg Cap 00:00: mouth [place] 00 daily. [facility] coQ10, Yes [id number] 1{capsu Take 1 U nivers ubiquinol, 1-16 le} capsule by ity of 100 mg Cap 00:00: mouth [place] 00 daily. [facility] coQ10, Yes [id number] 1{capsu Take 1 U nivers ubiquinol, 1-16 le} capsule by ity of 100 mg Cap 00:00: mouth [place] 00 daily. [facility] coQ10, Yes [id number] 1{capsu Take 1 U nivers ubiquinol, 1-16 le} capsule by ity of 100 mg Cap 00:00: mouth [place] 00 daily. [facility] coQ10, Yes [id number] 1{capsu Take 1 U nivers ubiquinol, 1-16 le} capsule by ity of 100 mg Cap 00:00: mouth [place] 00 daily. [facility] loratadine Yes [id number] 10mg Take 1 [facility] 10 mg 1-23 tablet by ity of tablet 00:00: mouth [place] 00 daily. [facility] loratadine Yes [id number] 10mg Take 1 [facility] 10 mg 1-23 tablet by ity of tablet 00:00: mouth [place] 00 daily. [facility] loratadine Yes [id number] 10mg Take 1 [facility] 10 mg 1-23 tablet by ity of tablet 00:00: mouth [place] 00 daily. [facility] loratadine Yes [id number] 10mg Take 1 [facility] 10 mg 1-23 tablet by ity of tablet 00:00: mouth [place] 00 daily. [facility] loratadine Yes [id number] 10mg Take 1 [facility] 10 mg 1-23 tablet by ity of tablet 00:00: mouth [place] 00 daily. [facility] loratadine 2021- No [id number] 10mg Take 1 [facility] 10 mg 1-23 06-13 tablet by ity of tablet 00:00: 00:00 mouth [place] 00 :00 daily. [facility] Immunizations Ordered Immunization Filled Immunization Date Status Commen ts Source Name Name SARS-COV-2 COVID-19 2022-07-27 Completed Unive rsity of [facility]EL[facility]-SUCROSE VACCINE 00:00:00 [facility] 12 YRS+, BIVALENT Branch 0.3ML, IM, (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) SARS-COV-2 COVID-19 2022-07-27 Completed Unive rsity of [facility]STELLE-SUCROSE VACCINE 00:00:00 [facility] 12 YRS+, BIVALENT Branch 0.3ML, IM, (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) SARS-COV-2 COVID-19 2022-07-27 Completed Unive rsity of [facility]RISTELLE-SUCROSE VACCINE 00:00:00 [facility] 12 YRS+, BIVALENT Branch 0.3ML, IM, (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) SARS-COV-2 COVID-19 2022-07-27 Completed Unive rsity of [facility]RISTELLE-SUCROSE VACCINE 00:00:00 [facility] 12 YRS+, BIVALENT Branch 0.3ML, IM, (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) SARS-COV-2 COVID-19 2022-07-27 Completed Unive rsity of [facility]RISTELLE-SUCROSE VACCINE 00:00:00 [facility] 12 YRS+, BIVALENT Branch 0.3ML, IM, (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) SARS-COV-2 COVID-19 2022-07-27 Completed Unive rsity of [facility]RISTELLE-SUCROSE VACCINE 00:00:00 [facility] 12 YRS+, BIVALENT Branch 0.3ML, IM, (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) SARS-COV-2 COVID-19 2022-07-27 Completed Unive rsity of [facility]RISTELLE-SUCROSE VACCINE 00:00:00 [facility] 12 YRS+, BIVALENT Branch 0.3ML, IM, (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) SARS-COV-2 COVID-19 2022-07-27 Completed Unive rsity of [facility]RISTELLE-SUCROSE VACCINE 00:00:00 [facility] 12 YRS+, BIVALENT Branch 0.3ML, IM, (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) SARS-COV-2 COVID-19 2022-07-27 Completed Unive rsity of CHRISTELLE-SUCROSE VACCINE 00:00:00 [facility] 12 YRS+, BIVALENT Branch 0.3ML, IM, (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) SARS-COV-2 COVID-19 2022-07-27 Completed Unive rsity of CHRISTELLE-SUCROSE VACCINE 00:00:00 [facility] 12 YRS+, BIVALENT Branch 0.3ML, IM, (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) SARS-COV-2 COVID-19 2022-07-27 Completed Unive rsity of CHRISTELLE-SUCROSE VACCINE 00:00:00 [facility] 12 YRS+, BIVALENT Branch 0.3ML, IM, (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) SARS-COV-2 COVID-19 2022-07-27 Completed Unive rsity of [facility]RISTELLE-SUCROSE VACCINE 00:00:00 [facility] 12 YRS+, BIVALENT Branch 0.3ML, IM, (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) SARS-COV-2 COVID-19 2022-07-27 Completed Unive rsity of CHRISTELLE-SUCROSE VACCINE 00:00:00 [facility] 12 YRS+, BIVALENT Branch 0.3ML, IM, (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) SARS-COV-2 COVID-19 2022-07-27 Completed Unive rsity of CHRISTELLE-SUCROSE VACCINE 00:00:00 [facility] 12 YRS+, BIVALENT Branch 0.3ML, IM, (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) SARS-COV-2 COVID-19 2022-07-27 Completed Unive rsity of CHRISTELLE-SUCROSE VACCINE 00:00:00 [facility] 12 YRS+, BIVALENT Branch 0.3ML, IM, (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) SARS-COV-2 COVID-19 2022-07-27 Completed Unive rsity of CHRISTELLE-SUCROSE VACCINE 00:00:00 [facility] 12 YRS+, BIVALENT Branch 0.3ML, IM, (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) SARS-COV-2 COVID-19 2022-07-27 Completed Unive rsity of CHRISTELLE-SUCROSE VACCINE 00:00:00 [facility] 12 YRS+, BIVALENT Branch 0.3ML, IM, (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) SARS-COV-2 COVID-19 2022-07-27 Completed Unive rsity of CHRISTELLE-SUCROSE VACCINE 00:00:00 [facility] 12 YRS+, BIVALENT Branch 0.3ML, IM, (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) Twin[facility] (hep a/hep b) 2022-02-24 Completed Uni versity of 00:00:00 [facility] (hep a/hep b) 2022-02-24 Completed Uni [...] b) 2022-02-24 Completed Uni versity of 00:00:00 [place] [facility] (hep a/hep b) 2022-02-24 Completed Uni versity of 00:00:00 [place] [facility] (hep a/hep b) 2022-02-24 Completed Uni versity of 00:00:00 [facility] (hep a/hep b) 2022-02-24 Completed Uni versity of 00:00:00 [facility] (hep a/hep b) 2022-02-24 Completed Uni versity of 00:00:00 [place] [facility] (hep a/hep b) 2022-02-24 Completed Uni versity of 00:00:00 [facility] (hep a/hep b) 2022-02-24 Completed Uni versity of 00:00:00 [facility] (hep a/hep b) 2022-02-24 Completed Uni versity of 00:00:00 [place] [facility] (hep a/hep b) 2022-02-24 Completed Uni versity of 00:00:00 [place] [facility] (hep a/hep b) 2022-02-24 Completed Uni versity of 00:00:00 [place] [facility] (hep a/hep b) 2022-02-24 Completed Uni versity of 00:00:00 [place] [facility] (hep a/hep b) 2022-02-24 Completed Uni versity of 00:00:00 [place] [facility] (hep a/hep b) 2022-02-24 [...] b) 2022-02-24 Completed Uni versity of 00:00:00 [place] [facility] (hep a/hep b) 2022-02-24 Completed Uni versity of 00:00:00 [place] [facility] (hep a/hep b) 2022-02-24 Completed Uni versity of 00:00:00 [facility] (hep a/hep b) 2022-02-24 Completed Uni versity of 00:00:00 [place] [facility] (hep a/hep b) 2022-02-24 Completed Uni versity of 00:00:00 [facility] (hep a/hep b) 2022-02-24 Completed Uni versity of 00:00:00 [facility] (hep a/hep b) 2022-02-24 Completed [...] b) 2022-02-24 Completed Uni versity of 00:00:00 [place] [facility] (hep a/hep b) 2022-02-24 [...] b) 2022-02-24 Completed Uni versity of 00:00:00 [place] [facility] (hep a/hep b) 2022-02-24 Completed Uni versity of 00:00:00 [facility] (hep a/hep b) 2022-02-24 Completed Uni versity of 00:00:00 [place] [facility] (hep a/hep b) 2022-02-24 Completed Uni versity of 00:00:00 [facility] (hep a/hep b) 2022-02-24 Completed Uni versity of 00:00:00 [place] [facility] (hep a/hep b) 2022-02-24 Completed Uni versity of 00:00:00 [facility] (hep a/hep b) 2022-02-24 Completed Uni versity of 00:00:00 [facility] (hep a/hep b) 2022-02-24 Completed Uni versity of 00:00:00 [place] [facility] (hep a/hep b) 2022-02-24 Completed Uni versity of 00:00:00 [place] [facility] (hep a/hep b) 2022-02-24 Completed Uni versity of 00:00:00 [place] [facility] (hep a/hep b) 2022-02-24 Completed Uni versity of 00:00:00 [place] [facility] (hep a/hep b) 2022-02-24 [...] b) 2022-02-24 Completed Uni versity of 00:00:00 [place] [facility] (hep a/hep b) 2022-02-24 Completed Uni versity of 00:00:00 [place] [facility] (hep a/hep b) 2022-02-24 Completed Uni versity of 00:00:00 [facility] (hep a/hep b) 2022-02-24 Completed Uni versity of 00:00:00 [facility] (hep a/hep b) 2022-02-24 Completed Uni versity of 00:00:00 [facility] (hep a/hep b) 2022-02-24 Completed Uni versity of 00:00:00 [facility] (hep a/hep b) 2022-02-24 Completed Uni versity of 00:00:00 [facility] (hep a/hep b) 2022-02-24 Completed Uni versity of 00:00:00 [facility] (hep a/hep b) 2022-02-24 Completed Uni versity of 00:00:00 [place] [facility] (hep a/hep b) 2022-02-24 Completed Uni versity of 00:00:00 [place] [facility] (hep a/hep b) 2022-02-24 Completed Uni versity of 00:00:00 [place] [facility] (hep a/hep b) 2022-02-24 Completed Uni versity of 00:00:00 [facility] (hep a/hep b) 2022-01-14 Completed Uni versity of 00:00:00 [facility] (hep a/hep b) 2022-01-14 Completed Uni versity of 00:00:00 [place] [facility] (hep a/hep b) 2022-01-14 Completed Uni versity of 00:00:00 [place] [facility] (hep a/hep b) 2022-01-14 Completed Uni versity of 00:00:00 [place] [facility] (hep a/hep b) 2022-01-14 Completed Uni versity of 00:00:00 [place] [facility] (hep a/hep b) 2022-01-14 Completed Uni versity of 00:00:00 [place] [facility] (hep a/hep b) 2022-01-14 Completed Uni versity of 00:00:00 [facility] (hep a/hep b) 2022-01-14 Completed Uni versity of 00:00:00 [facility] (hep a/hep b) 2022-01-14 Completed Uni versity of 00:00:00 [facility] (hep a/hep b) 2022-01-14 Completed Uni versity of 00:00:00 [facility] (hep a/hep b) 2022-01-14 Completed Uni versity of 00:00:00 [facility] (hep a/hep b) 2022-01-14 Completed Uni versity of 00:00:00 [facility] (hep a/hep b) 2022-01-14 Completed Uni versity of 00:00:00 [facility] (hep a/hep b) 2022-01-14 Completed Uni versity of 00:00:00 [facility] (hep a/hep b) 2022-01-14 Completed Uni versity of 00:00:00 [facility] (hep a/hep b) 2022-01-14 Completed Uni versity of 00:00:00 [place] [facility] (hep a/hep b) 2022-01-14 Completed Uni versity of 00:00:00 [place] [facility] (hep a/hep b) 2022-01-14 Completed Uni versity of 00:00:00 [facility] (hep a/hep b) 2022-01-14 Completed [...] b) 2022-01-14 Completed Uni versity of 00:00:00 [place] [facility] (hep a/hep b) 2022-01-14 Completed Uni versity of 00:00:00 [place] [facility] (hep a/hep b) 2022-01-14 Completed Uni versity of 00:00:00 [place] [facility] (hep a/hep b) 2022-01-14 Completed Uni versity of 00:00:00 [place] [facility] (hep a/hep b) 2022-01-14 Completed Uni versity of 00:00:00 [place] [facility] (hep a/hep b) 2022-01-14 Completed Uni versity of 00:00:00 [facility] (hep a/hep b) 2022-01-14 Completed [...] b) 2022-01-14 Completed Uni versity of 00:00:00 [place] [facility] (hep a/hep b) 2022-01-14 Completed Uni versity of 00:00:00 [place] [facility] (hep a/hep b) 2022-01-14 Completed Uni versity of 00:00:00 [place] [facility] (hep a/hep b) 2022-01-14 Completed Uni versity of 00:00:00 [place] [facility] (hep a/hep b) 2022-01-14 Completed Uni versity of 00:00:00 [place] [facility] (hep a/hep b) 2022-01-14 Completed Uni versity of 00:00:00 [facility] (hep a/hep b) 2022-01-14 Completed Uni versity of 00:00:00 [facility] (hep a/hep b) 2022-01-14 Completed Uni versity of 00:00:00 [facility] (hep a/hep b) 2022-01-14 Completed Uni versity of 00:00:00 [facility] (hep a/hep b) 2022-01-14 Completed Uni versity of 00:00:00 [facility] (hep a/hep b) 2022-01-14 Completed Uni versity of 00:00:00 [facility] (hep a/hep b) 2022-01-14 Completed Uni versity of 00:00:00 [facility] (hep a/hep b) 2022-01-14 Completed Uni versity of 00:00:00 [facility] (hep a/hep b) 2022-01-14 Completed Uni versity of 00:00:00 [facility] (hep a/hep b) 2022-01-14 Completed Uni versity of 00:00:00 [facility] (hep a/hep b) 2022-01-14 Completed Uni versity of 00:00:00 [facility] (hep a/hep b) 2022-01-14 Completed Uni versity of 00:00:00 [facility] (hep a/hep b) 2022-01-14 Completed Uni versity of 00:00:00 [facility] (hep a/hep b) 2022-01-14 Completed Uni versity of 00:00:00 [facility] (hep a/hep b) 2022-01-14 Completed Uni versity of 00:00:00 [facility] (hep a/hep b) 2022-01-14 Completed Uni versity of 00:00:00 [facility] (hep a/hep b) 2022-01-14 Completed Uni versity of 00:00:00 [facility] (hep a/hep b) 2022-01-14 Completed Uni versity of 00:00:00 [facility] (hep a/hep b) 2022-01-14 Completed Uni versity of 00:00:00 [facility] (hep a/hep b) 2022-01-14 Completed Uni versity of 00:00:00 [facility] (hep a/hep b) 2022-01-14 Completed Uni versity of 00:00:00 [facility] (hep a/hep b) 2022-01-14 Completed Uni versity of 00:00:00 [facility] (hep a/hep b) 2022-01-14 Completed Uni versity of 00:00:00 [facility] (hep a/hep b) 2022-01-14 Completed Uni versity of 00:00:00 [facility] (hep a/hep b) 2022-01-14 Completed Uni versity of 00:00:00 [facility] (hep a/hep b) 2022-01-14 Completed Uni versity of 00:00:00 [facility] (hep a/hep b) 2022-01-14 Completed Uni versity of 00:00:00 [facility] (hep a/hep b) 2022-01-14 Completed Uni versity of 00:00:00 [facility] SARS-COV-2 COVID-19 2021-07-23 Completed Unive rsity of PFIZER VACCINE 00:00:00 [facility] SARS-COV-2 COVID-19 2021-07-23 Completed Unive rsity of PFIZER VACCINE 00:00:00 [facility] SARS-COV-2 COVID-19 2021-07-23 Completed Unive rsity of PFIZER VACCINE 00:00:00 [facility] SARS-COV-2 COVID-19 2021-07-23 Completed Unive rsity of PFIZER VACCINE 00:00:00 [facility] SARS-COV-2 COVID-19 2021-07-23 Completed Unive rsity of PFIZER VACCINE 00:00:00 [facility] SARS-COV-2 COVID-19 2021-07-23 Completed Unive rsity of PFIZER VACCINE 00:00:00 [facility] SARS-COV-2 COVID-19 2021-07-23 Completed Unive rsity of PFIZER VACCINE 00:00:00 [facility] SARS-COV-2 COVID-19 2021-07-23 Completed Unive rsity of PFIZER VACCINE 00:00:00 [facility] SARS-COV-2 COVID-19 2021-07-23 Completed Unive rsity of PFIZER VACCINE 00:00:00 [facility] SARS-COV-2 COVID-19 2021-07-23 Completed Unive rsity of PFIZER VACCINE 00:00:00 [facility] SARS-COV-2 COVID-19 2021-07-23 Completed Unive rsity of PFIZER VACCINE 00:00:00 [facility] SARS-COV-2 COVID-19 2021-07-23 Completed Unive rsity of PFIZER VACCINE 00:00:00 [facility] SARS-COV-2 COVID-19 2021-07-23 Completed Unive rsity of PFIZER VACCINE 00:00:00 [facility] SARS-COV-2 COVID-19 2021-07-23 Completed Unive rsity of PFIZER VACCINE 00:00:00 [facility] SARS-COV-2 COVID-19 2021-07-23 Completed Unive rsity of PFIZER VACCINE 00:00:00 [facility] SARS-COV-2 COVID-19 2021-07-23 Completed Unive rsity of PFIZER VACCINE 00:00:00 [facility] SARS-COV-2 COVID-19 2021-07-23 Completed Unive rsity of PFIZER VACCINE 00:00:00 [facility] SARS-COV-2 COVID-19 2021-07-23 Completed Unive rsity of PFIZER VACCINE 00:00:00 [facility] SARS-COV-2 COVID-19 2021-07-23 Completed Unive rsity of PFIZER VACCINE 00:00:00 [facility] SARS-COV-2 COVID-19 2021-07-23 Completed Unive rsity of PFIZER VACCINE 00:00:00 [facility] SARS-COV-2 COVID-19 2021-07-23 Completed Unive rsity of PFIZER VACCINE 00:00:00 [facility] SARS-COV-2 COVID-19 2021-07-23 Completed Unive rsity of PFIZER VACCINE 00:00:00 [facility] SARS-COV-2 COVID-19 2021-07-23 Completed Unive rsity of PFIZER VACCINE 00:00:00 [facility] SARS-COV-2 COVID-19 2021-07-23 Completed Unive rsity of PFIZER VACCINE 00:00:00 [facility] SARS-COV-2 COVID-19 2021-07-23 Completed Unive rsity of PFIZER VACCINE 00:00:00 [facility] SARS-COV-2 COVID-19 2021-07-23 Completed Unive rsity of PFIZER VACCINE 00:00:00 [facility] SARS-COV-2 COVID-19 2021-07-23 Completed Unive rsity of PFIZER VACCINE 00:00:00 [facility] SARS-COV-2 COVID-19 2021-07-23 Completed Unive rsity of PFIZER VACCINE 00:00:00 [facility] SARS-COV-2 COVID-19 2021-07-23 Completed Unive rsity of PFIZER VACCINE 00:00:00 [facility] SARS-COV-2 COVID-19 2021-07-23 Completed Unive rsity of PFIZER VACCINE 00:00:00 [facility] SARS-COV-2 COVID-19 2021-07-23 Completed Unive rsity of PFIZER VACCINE 00:00:00 [facility] SARS-COV-2 COVID-19 2021-07-23 Completed Unive rsity of PFIZER VACCINE 00:00:00 [facility] SARS-COV-2 COVID-19 2021-07-23 Completed Unive rsity of PFIZER VACCINE 00:00:00 [facility] SARS-COV-2 COVID-19 2021-07-23 Completed Unive rsity of PFIZER VACCINE 00:00:00 [facility] SARS-COV-2 COVID-19 2021-07-23 Completed Unive rsity of PFIZER VACCINE 00:00:00 [facility] SARS-COV-2 COVID-19 2021-07-23 Completed Unive rsity of PFIZER VACCINE 00:00:00 [facility] SARS-COV-2 COVID-19 2021-07-23 Completed Unive rsity of PFIZER VACCINE 00:00:00 [facility] SARS-COV-2 COVID-19 2021-07-23 Completed Unive rsity of PFIZER VACCINE 00:00:00 [facility] SARS-COV-2 COVID-19 2021-07-23 Completed Unive rsity of PFIZER VACCINE 00:00:00 [facility] SARS-COV-2 COVID-19 2021-07-23 Completed Unive rsity of PFIZER VACCINE 00:00:00 [facility] SARS-COV-2 COVID-19 2021-07-23 Completed Unive rsity of PFIZER VACCINE 00:00:00 [facility] SARS-COV-2 COVID-19 2021-07-23 Completed Unive rsity of PFIZER VACCINE 00:00:00 [facility] SARS-COV-2 COVID-19 2021-07-23 Completed Unive rsity of PFIZER VACCINE 00:00:00 [facility] SARS-COV-2 COVID-19 2021-07-23 Completed Unive rsity of PFIZER VACCINE 00:00:00 [facility] SARS-COV-2 COVID-19 2021-07-23 Completed Unive rsity of PFIZER VACCINE 00:00:00 [facility] SARS-COV-2 COVID-19 2021-07-23 Completed Unive rsity of PFIZER VACCINE 00:00:00 [facility] SARS-COV-2 COVID-19 2021-07-23 Completed Unive rsity of PFIZER VACCINE 00:00:00 [facility] SARS-COV-2 COVID-19 2021-07-23 Completed Unive rsity of PFIZER VACCINE 00:00:00 [facility] SARS-COV-2 COVID-19 2021-07-23 Completed Unive rsity of PFIZER VACCINE 00:00:00 [facility] SARS-COV-2 COVID-19 2021-07-23 Completed Unive rsity of PFIZER VACCINE 00:00:00 [facility] SARS-COV-2 COVID-19 2021-07-23 Completed Unive rsity of PFIZER VACCINE 00:00:00 [facility] SARS-COV-2 COVID-19 2021-07-23 Completed Unive rsity of PFIZER VACCINE 00:00:00 [facility] SARS-COV-2 COVID-19 2021-07-23 Completed Unive rsity of PFIZER VACCINE 00:00:00 [facility] SARS-COV-2 COVID-19 2021-07-23 Completed Unive rsity of PFIZER VACCINE 00:00:00 [facility] SARS-COV-2 COVID-19 2021-07-23 Completed Unive rsity of PFIZER VACCINE 00:00:00 [facility] SARS-COV-2 COVID-19 2021-07-23 Completed Unive rsity of PFIZER VACCINE 00:00:00 [facility] SARS-COV-2 COVID-19 2021-07-23 Completed Unive rsity of PFIZER VACCINE 00:00:00 [facility] SARS-COV-2 COVID-19 2021-07-23 Completed Unive rsity of PFIZER VACCINE 00:00:00 [facility] SARS-COV-2 COVID-19 2021-07-23 Completed Unive rsity of PFIZER VACCINE 00:00:00 [facility] SARS-COV-2 COVID-19 2021-07-23 Completed Unive rsity of PFIZER VACCINE 00:00:00 [facility] SARS-COV-2 COVID-19 2021-07-23 Completed Unive rsity of PFIZER VACCINE 00:00:00 [facility] SARS-COV-2 COVID-19 2021-07-23 Completed Unive rsity of PFIZER VACCINE 00:00:00 [facility] SARS-COV-2 COVID-19 2021-07-23 Completed Unive rsity of PFIZER VACCINE 00:00:00 [facility] SARS-COV-2 COVID-19 2021-07-23 Completed Unive [facility] PFIZER VACCINE 00:00:00 [facility] SARS-COV-2 COVID-19 2021-07-23 Completed [facility] PFIZER VACCINE 00:00:00 [facility] SARS-COV-2 COVID-19 2021-07-23 Completed [facility] PFIZER VACCINE 00:00:00 [facility] SARS-COV-2 COVID-19 2021-07-23 Completed [facility] PFIZER VACCINE 00:00:00 [facility] SARS-COV-2 COVID-19 2021-07-23 Completed [facility] PFIZER VACCINE 00:00:00 [facility] SARS-COV-2 COVID-19 2021-07-23 Completed [facility] PFIZER VACCINE 00:00:00 [facility] Influenza Virus 2021-05-27 Completed [facility] Vaccine (3+ yrs) 00:00:00 [facility] Influenza Virus 2021-05-27 Completed [facility] Vaccine (3+ yrs) 00:00:00 [facility] Influenza Virus 2021-05-27 Completed [facility] Vaccine (3+ yrs) 00:00:00 [facility] Influenza Virus 2021-05-27 Completed [facility] Vaccine (3+ yrs) 00:00:00 [facility] Influenza Virus 2021-05-27 Completed [facility] Vaccine (3+ yrs) 00:00:00 [facility] Influenza Virus 2021-05-27 Completed [facility] Vaccine (3+ yrs) 00:00:00 [facility] Influenza Virus 2021-05-27 Completed [facility] Vaccine (3+ yrs) 00:00:00 [facility] Influenza Virus 2021-05-27 Completed [facility] Vaccine (3+ yrs) 00:00:00 [facility] Influenza Virus 2021-05-27 Completed [facility] Vaccine (3+ yrs) 00:00:00 [facility] Influenza Virus 2021-05-27 Completed [facility] Vaccine (3+ yrs) 00:00:00 [facility] Influenza Virus 2021-05-27 Completed [facility] Vaccine (3+ yrs) 00:00:00 [facility] Influenza Virus 2021-05-27 Completed [facility] Vaccine (3+ yrs) 00:00:00 [facility] Influenza Virus 2021-05-27 Completed [facility] Vaccine (3+ yrs) 00:00:00 [facility] Influenza Virus 2021-05-27 Completed [facility] Vaccine (3+ yrs) 00:00:00 [facility] Influenza Virus 2021-05-27 Completed [facility] Vaccine (3+ yrs) 00:00:00 [facility] Influenza Virus 2021-05-27 Completed [facility] Vaccine (3+ yrs) 00:00:00 [facility] Influenza Virus 2021-05-27 Completed [facility] Vaccine (3+ yrs) 00:00:00 [facility] Influenza Virus 2021-05-27 Completed [facility] Vaccine (3+ yrs) 00:00:00 [facility] Influenza Virus 2021-05-27 Completed [facility] Vaccine (3+ yrs) 00:00:00 [facility] Influenza Virus 2021-05-27 Completed [facility] Vaccine (3+ yrs) 00:00:00 [facility] Influenza Virus 2021-05-27 Completed [facility] Vaccine (3+ yrs) 00:00:00 [facility] Influenza Virus 2021-05-27 Completed [facility] Vaccine (3+ yrs) 00:00:00 [facility] Influenza Virus 2021-05-27 Completed [facility] Vaccine (3+ yrs) 00:00:00 [facility] Influenza Virus 2021-05-27 Completed [facility] Vaccine (3+ yrs) 00:00:00 [facility] Influenza Virus 2021-05-27 Completed [facility] Vaccine (3+ yrs) 00:00:00 [facility] Influenza Virus 2021-05-27 Completed [facility] Vaccine (3+ yrs) 00:00:00 [facility] Influenza Virus 2021-05-27 Completed [facility] Vaccine (3+ yrs) 00:00:00 [facility] Influenza Virus 2021-05-27 Completed [facility] Vaccine (3+ yrs) 00:00:00 [facility] Influenza Virus 2021-05-27 Completed [facility] Vaccine (3+ yrs) 00:00:00 [facility] Influenza Virus 2021-05-27 Completed [facility] Vaccine (3+ yrs) 00:00:00 [facility] Influenza Virus 2021-05-27 Completed [facility] Vaccine (3+ yrs) 00:00:00 [facility] Influenza Virus 2021-05-27 Completed [facility] Vaccine (3+ yrs) 00:00:00 [facility] Influenza Virus 2021-05-27 Completed [facility] Vaccine (3+ yrs) 00:00:00 [facility] Influenza Virus 2021-05-27 Completed [facility] Vaccine (3+ yrs) 00:00:00 [facility] Influenza Virus 2021-05-27 Completed [facility] Vaccine (3+ yrs) 00:00:00 [facility] Influenza Virus 2021-05-27 Completed [facility] Vaccine (3+ yrs) 00:00:00 [facility] Influenza Virus 2021-05-27 Completed [facility] Vaccine (3+ yrs) 00:00:00 [facility] Influenza Virus 2021-05-27 Completed [facility] Vaccine (3+ yrs) 00:00:00 [facility] Influenza Virus 2021-05-27 Completed [facility] Vaccine (3+ yrs) 00:00:00 [facility] Influenza Virus 2021-05-27 Completed [facility] Vaccine (3+ yrs) 00:00:00 [facility] Influenza Virus 2021-05-27 Completed [facility] Vaccine (3+ yrs) 00:00:00 [facility] Influenza Virus 2021-05-27 Completed [facility] Vaccine (3+ yrs) 00:00:00 [facility] Influenza Virus 2021-05-27 Completed [facility] Vaccine (3+ yrs) 00:00:00 [facility] Influenza Virus 2021-05-27 Completed [facility] Vaccine (3+ yrs) 00:00:00 [facility] Influenza Virus 2021-05-27 Completed [facility] Vaccine (3+ yrs) 00:00:00 [facility] Influenza Virus 2021-05-27 Completed [facility] Vaccine (3+ yrs) 00:00:00 [facility] Influenza Virus 2021-05-27 Completed [facility] Vaccine (3+ yrs) 00:00:00 [facility] Influenza Virus 2021-05-27 Completed [facility] Vaccine (3+ yrs) 00:00:00 [facility] Influenza Virus 2021-05-27 Completed [facility] Vaccine (3+ yrs) 00:00:00 [facility] Influenza Virus 2021-05-27 Completed [facility] Vaccine (3+ yrs) 00:00:00 [facility] Influenza Virus 2021-05-27 Completed [facility] Vaccine (3+ yrs) 00:00:00 [facility] Influenza Virus 2021-05-27 Completed [facility] Vaccine (3+ yrs) 00:00:00 [facility] Influenza Virus 2021-05-27 Completed [facility] Vaccine (3+ yrs) 00:00:00 [facility] Influenza Virus 2021-05-27 Completed [facility] Vaccine (3+ yrs) 00:00:00 [facility] Influenza Virus 2021-05-27 Completed [facility] Vaccine (3+ yrs) 00:00:00 [facility] Influenza Virus 2021-05-27 Completed [facility] Vaccine (3+ yrs) 00:00:00 [facility] Influenza Virus 2021-05-27 Completed [facility] Vaccine (3+ yrs) 00:00:00 [facility] Influenza Virus 2021-05-27 Completed [facility] Vaccine (3+ yrs) 00:00:00 [facility] Influenza Virus 2021-05-27 Completed [facility] Vaccine (3+ yrs) 00:00:00 [facility] Influenza Virus 2021-05-27 Completed [facility] Vaccine (3+ yrs) 00:00:00 [facility] Influenza Virus 2021-05-27 Completed [facility] Vaccine (3+ yrs) 00:00:00 [facility] Influenza Virus 2021-05-27 Completed [facility] Vaccine (3+ yrs) 00:00:00 [facility] Influenza Virus 2021-05-27 Completed [facility] Vaccine (3+ yrs) 00:00:00 [facility] Influenza Virus 2021-05-27 Completed [facility] Vaccine (3+ yrs) 00:00:00 [facility] Influenza Virus 2021-05-27 Completed [facility] Vaccine (3+ yrs) 00:00:00 [facility] Influenza Virus 2021-05-27 Completed [facility] Vaccine (3+ yrs) 00:00:00 [facility] Influenza Virus 2021-05-27 Completed [facility] Vaccine (3+ yrs) 00:00:00 [facility] Influenza Virus 2021-05-27 Completed [facility] Vaccine (3+ yrs) 00:00:00 [facility] Influenza Virus 2021-05-27 Completed [facility] Vaccine (3+ yrs) 00:00:00 [facility] SARS-COV-2 COVID-19 2020-12-13 Completed [facility] PFIZER VACCINE 00:00:00 [facility] SARS-COV-2 COVID-19 2020-12-13 Completed [facility] PFIZER VACCINE 00:00:00 [facility] SARS-COV-2 COVID-19 2020-12-13 Completed [facility] PFIZER VACCINE 00:00:00 [facility] SARS-COV-2 COVID-19 2020-12-13 Completed [facility] PFIZER VACCINE 00:00:00 [facility] SARS-COV-2 COVID-19 2020-12-13 Completed [facility] PFIZER VACCINE 00:00:00 [facility] SARS-COV-2 COVID-19 2020-12-13 Completed [facility] PFIZER VACCINE 00:00:00 [facility] SARS-COV-2 COVID-19 2020-12-13 Completed [facility] PFIZER VACCINE 00:00:00 [facility] SARS-COV-2 COVID-19 2020-12-13 Completed [facility] PFIZER VACCINE 00:00:00 [facility] SARS-COV-2 COVID-19 2020-12-13 Completed [facility] PFIZER VACCINE 00:00:00 [facility] SARS-COV-2 COVID-19 2020-12-13 Completed [facility] PFIZER VACCINE 00:00:00 [facility] SARS-COV-2 COVID-19 2020-12-13 Completed [facility] PFIZER VACCINE 00:00:00 [facility] SARS-COV-2 COVID-19 2020-12-13 Completed [facility] PFIZER VACCINE 00:00:00 [facility] SARS-COV-2 COVID-19 2020-12-13 Completed [facility] PFIZER VACCINE 00:00:00 [facility] SARS-COV-2 COVID-19 2020-12-13 Completed [facility] PFIZER VACCINE 00:00:00 [facility] SARS-COV-2 COVID-19 2020-12-13 Completed [facility] PFIZER VACCINE 00:00:00 [facility] SARS-COV-2 COVID-19 2020-12-13 Completed [facility] PFIZER VACCINE 00:00:00 [facility] SARS-COV-2 COVID-19 2020-12-13 Completed [facility] PFIZER VACCINE 00:00:00 [facility] SARS-COV-2 COVID-19 2020-12-13 Completed [facility] PFIZER VACCINE 00:00:00 [facility] SARS-COV-2 COVID-19 2020-12-13 Completed [facility] PFIZER VACCINE 00:00:00 [facility] SARS-COV-2 COVID-19 2020-12-13 Completed [facility] PFIZER VACCINE 00:00:00 [facility] SARS-COV-2 COVID-19 2020-12-13 Completed [facility] PFIZER VACCINE 00:00:00 [facility] SARS-COV-2 COVID-19 2020-12-13 Completed [facility] PFIZER VACCINE 00:00:00 [facility] SARS-COV-2 COVID-19 2020-12-13 Completed [facility] PFIZER VACCINE 00:00:00 [facility] SARS-COV-2 COVID-19 2020-12-13 Completed [facility] PFIZER VACCINE 00:00:00 [facility] SARS-COV-2 COVID-19 2020-12-13 Completed [facility] PFIZER VACCINE 00:00:00 [facility] SARS-COV-2 COVID-19 2020-12-13 Completed [facility] PFIZER VACCINE 00:00:00 [facility] SARS-COV-2 COVID-19 2020-12-13 Completed [facility] PFIZER VACCINE 00:00:00 [facility] SARS-COV-2 COVID-19 2020-12-13 Completed [facility] PFIZER VACCINE 00:00:00 [facility] SARS-COV-2 COVID-19 2020-12-13 Completed [facility] PFIZER VACCINE 00:00:00 [facility] SARS-COV-2 COVID-19 2020-12-13 Completed [facility] PFIZER VACCINE 00:00:00 [facility] SARS-COV-2 COVID-19 2020-12-13 Completed [facility] PFIZER VACCINE 00:00:00 [facility] SARS-COV-2 COVID-19 2020-12-13 Completed [facility] PFIZER VACCINE 00:00:00 [facility] SARS-COV-2 COVID-19 2020-12-13 Completed [facility] PFIZER VACCINE 00:00:00 [facility] SARS-COV-2 COVID-19 2020-12-13 Completed [facility] PFIZER VACCINE 00:00:00 [facility] SARS-COV-2 COVID-19 2020-12-13 Completed [facility] PFIZER VACCINE 00:00:00 [facility] SARS-COV-2 COVID-19 2020-12-13 Completed [facility] PFIZER VACCINE 00:00:00 [facility] SARS-COV-2 COVID-19 2020-12-13 Completed [facility] PFIZER VACCINE 00:00:00 [facility] SARS-COV-2 COVID-19 2020-12-13 Completed [facility] PFIZER VACCINE 00:00:00 [facility] SARS-COV-2 COVID-19 2020-12-13 Completed [facility] PFIZER VACCINE 00:00:00 [facility] SARS-COV-2 COVID-19 2020-12-13 Completed [facility] PFIZER VACCINE 00:00:00 [facility] SARS-COV-2 COVID-19 2020-12-13 Completed [facility] PFIZER VACCINE 00:00:00 [facility] SARS-COV-2 COVID-19 2020-12-13 Completed [facility] PFIZER VACCINE 00:00:00 [facility] SARS-COV-2 COVID-19 2020-12-13 Completed [facility] PFIZER VACCINE 00:00:00 [facility] SARS-COV-2 COVID-19 2020-12-13 Completed [facility] PFIZER VACCINE 00:00:00 [facility] SARS-COV-2 COVID-19 2020-12-13 Completed [facility] PFIZER VACCINE 00:00:00 [facility] SARS-COV-2 COVID-19 2020-12-13 Completed [facility] PFIZER VACCINE 00:00:00 [facility] SARS-COV-2 COVID-19 2020-12-13 Completed [facility] PFIZER VACCINE 00:00:00 [facility] SARS-COV-2 COVID-19 2020-12-13 Completed [facility] PFIZER VACCINE 00:00:00 [facility] SARS-COV-2 COVID-19 2020-12-13 Completed [facility] PFIZER VACCINE 00:00:00 [facility] SARS-COV-2 COVID-19 2020-12-13 Completed [facility] PFIZER VACCINE 00:00:00 [facility] SARS-COV-2 COVID-19 2020-12-13 Completed [facility] PFIZER VACCINE 00:00:00 [facility] SARS-COV-2 COVID-19 2020-12-13 Completed [facility] PFIZER VACCINE 00:00:00 [facility] SARS-COV-2 COVID-19 2020-12-13 Completed [facility] PFIZER VACCINE 00:00:00 [facility] SARS-COV-2 COVID-19 2020-12-13 Completed [facility] PFIZER VACCINE 00:00:00 [facility] SARS-COV-2 COVID-19 2020-12-13 Completed [facility] PFIZER VACCINE 00:00:00 [facility] SARS-COV-2 COVID-19 2020-12-13 Completed [facility] PFIZER VACCINE 00:00:00 [facility] SARS-COV-2 COVID-19 2020-12-13 Completed [facility] PFIZER VACCINE 00:00:00 [facility] SARS-COV-2 COVID-19 2020-12-13 Completed [facility] PFIZER VACCINE 00:00:00 [facility] SARS-COV-2 COVID-19 2020-12-13 Completed [facility] PFIZER VACCINE 00:00:00 [facility] SARS-COV-2 COVID-19 2020-12-13 Completed [facility] PFIZER VACCINE 00:00:00 [facility] SARS-COV-2 COVID-19 2020-12-13 Completed [facility] PFIZER VACCINE 00:00:00 [facility] SARS-COV-2 COVID-19 2020-12-13 Completed [facility] PFIZER VACCINE 00:00:00 [facility] SARS-COV-2 COVID-19 2020-12-13 Completed [facility] PFIZER VACCINE 00:00:00 [facility] SARS-COV-2 COVID-19 2020-12-13 Completed [facility] PFIZER VACCINE 00:00:00 [facility] SARS-COV-2 COVID-19 2020-12-13 Completed [facility] PFIZER VACCINE 00:00:00 [facility] SARS-COV-2 COVID-19 2020-12-13 Completed [facility] PFIZER VACCINE 00:00:00 [facility] SARS-COV-2 COVID-19 2020-12-13 Completed [facility] PFIZER VACCINE 00:00:00 [facility] SARS-COV-2 COVID-19 2020-12-13 Completed [facility] PFIZER VACCINE 00:00:00 [facility] SARS-COV-2 COVID-19 2020-12-13 Completed [facility] PFIZER VACCINE 00:00:00 [facility] SARS-COV-2 COVID-19 2020-11-22 Completed [facility] PFIZER VACCINE 00:00:00 [facility] SARS-COV-2 COVID-19 2020-11-22 Completed [facility] PFIZER VACCINE 00:00:00 [facility] SARS-COV-2 COVID-19 2020-11-22 Completed [facility] PFIZER VACCINE 00:00:00 [facility] SARS-COV-2 COVID-19 2020-11-22 Completed [facility] PFIZER VACCINE 00:00:00 [facility] SARS-COV-2 COVID-19 2020-11-22 Completed [facility] PFIZER VACCINE 00:00:00 [facility] SARS-COV-2 COVID-19 2020-11-22 Completed [facility] PFIZER VACCINE 00:00:00 [facility] SARS-COV-2 COVID-19 2020-11-22 Completed [facility] PFIZER VACCINE 00:00:00 [facility] SARS-COV-2 COVID-19 2020-11-22 Completed [facility] PFIZER VACCINE 00:00:00 [facility] SARS-COV-2 COVID-19 2020-11-22 Completed [facility] PFIZER VACCINE 00:00:00 [facility] SARS-COV-2 COVID-19 2020-11-22 Completed [facility] PFIZER VACCINE 00:00:00 [facility] SARS-COV-2 COVID-19 2020-11-22 Completed [facility] PFIZER VACCINE 00:00:00 [facility] SARS-COV-2 COVID-19 2020-11-22 Completed [facility] PFIZER VACCINE 00:00:00 [facility] SARS-COV-2 COVID-19 2020-11-22 Completed [facility] PFIZER VACCINE 00:00:00 [facility] SARS-COV-2 COVID-19 2020-11-22 Completed [facility] PFIZER VACCINE 00:00:00 [facility] SARS-COV-2 COVID-19 2020-11-22 Completed [facility] PFIZER VACCINE 00:00:00 [facility] SARS-COV-2 COVID-19 2020-11-22 Completed [facility] PFIZER VACCINE 00:00:00 [facility] SARS-COV-2 COVID-19 2020-11-22 Completed [facility] PFIZER VACCINE 00:00:00 [facility] SARS-COV-2 COVID-19 2020-11-22 Completed [facility] PFIZER VACCINE 00:00:00 [facility] SARS-COV-2 COVID-19 2020-11-22 Completed [facility] PFIZER VACCINE 00:00:00 [facility] SARS-COV-2 COVID-19 2020-11-22 Completed [facility] PFIZER VACCINE 00:00:00 [facility] SARS-COV-2 COVID-19 2020-11-22 Completed [facility] PFIZER VACCINE 00:00:00 [facility] SARS-COV-2 COVID-19 2020-11-22 Completed [facility] PFIZER VACCINE 00:00:00 [facility] SARS-COV-2 COVID-19 2020-11-22 Completed [facility] PFIZER VACCINE 00:00:00 [facility] SARS-COV-2 COVID-19 2020-11-22 Completed [facility] PFIZER VACCINE 00:00:00 [facility] SARS-COV-2 COVID-19 2020-11-22 Completed [facility] PFIZER VACCINE 00:00:00 [facility] SARS-COV-2 COVID-19 2020-11-22 Completed [facility] PFIZER VACCINE 00:00:00 [facility] SARS-COV-2 COVID-19 2020-11-22 Completed [facility] PFIZER VACCINE 00:00:00 [facility] SARS-COV-2 COVID-19 2020-11-22 Completed [facility] PFIZER VACCINE 00:00:00 [facility] SARS-COV-2 COVID-19 2020-11-22 Completed [facility] PFIZER VACCINE 00:00:00 [facility] SARS-COV-2 COVID-19 2020-11-22 Completed [facility] PFIZER VACCINE 00:00:00 [facility] SARS-COV-2 COVID-19 2020-11-22 Completed [facility] PFIZER VACCINE 00:00:00 [facility] SARS-COV-2 COVID-19 2020-11-22 Completed [facility] PFIZER VACCINE 00:00:00 [facility] SARS-COV-2 COVID-19 2020-11-22 Completed [facility] PFIZER VACCINE 00:00:00 [facility] SARS-COV-2 COVID-19 2020-11-22 Completed [facility] PFIZER VACCINE 00:00:00 [facility] SARS-COV-2 COVID-19 2020-11-22 Completed [facility] PFIZER VACCINE 00:00:00 [facility] SARS-COV-2 COVID-19 2020-11-22 Completed [facility] PFIZER VACCINE 00:00:00 [facility] SARS-COV-2 COVID-19 2020-11-22 Completed [facility] PFIZER VACCINE 00:00:00 [facility] SARS-COV-2 COVID-19 2020-11-22 Completed [facility] PFIZER VACCINE 00:00:00 [facility] SARS-COV-2 COVID-19 2020-11-22 Completed [facility] PFIZER VACCINE 00:00:00 [facility] SARS-COV-2 COVID-19 2020-11-22 Completed [facility] PFIZER VACCINE 00:00:00 [facility] SARS-COV-2 COVID-19 2020-11-22 Completed [facility] PFIZER VACCINE 00:00:00 [facility] SARS-COV-2 COVID-19 2020-11-22 Completed [facility] PFIZER VACCINE 00:00:00 [facility] SARS-COV-2 COVID-19 2020-11-22 Completed [facility] PFIZER VACCINE 00:00:00 [facility] SARS-COV-2 COVID-19 2020-11-22 Completed [facility] PFIZER VACCINE 00:00:00 [facility] SARS-COV-2 COVID-19 2020-11-22 Completed [facility] PFIZER VACCINE 00:00:00 [facility] SARS-COV-2 COVID-19 2020-11-22 Completed [facility] PFIZER VACCINE 00:00:00 [facility] SARS-COV-2 COVID-19 2020-11-22 Completed [facility] PFIZER VACCINE 00:00:00 [facility] SARS-COV-2 COVID-19 2020-11-22 Completed [facility] PFIZER VACCINE 00:00:00 [facility] SARS-COV-2 COVID-19 2020-11-22 Completed [facility] PFIZER VACCINE 00:00:00 [facility] SARS-COV-2 COVID-19 2020-11-22 Completed [facility] PFIZER VACCINE 00:00:00 [facility] SARS-COV-2 COVID-19 2020-11-22 Completed [facility] PFIZER VACCINE 00:00:00 [facility] SARS-COV-2 COVID-19 2020-11-22 Completed [facility] PFIZER VACCINE 00:00:00 [facility] SARS-COV-2 COVID-19 2020-11-22 Completed [facility] PFIZER VACCINE 00:00:00 [facility] SARS-COV-2 COVID-19 2020-11-22 Completed [facility] PFIZER VACCINE 00:00:00 [facility] SARS-COV-2 COVID-19 2020-11-22 Completed [facility] PFIZER VACCINE 00:00:00 [facility] SARS-COV-2 COVID-19 2020-11-22 Completed [facility] PFIZER VACCINE 00:00:00 [facility] SARS-COV-2 COVID-19 2020-11-22 Completed [facility] PFIZER VACCINE 00:00:00 [facility] SARS-COV-2 COVID-19 2020-11-22 Completed [facility] PFIZER VACCINE 00:00:00 [facility] SARS-COV-2 COVID-19 2020-11-22 Completed [facility] PFIZER VACCINE 00:00:00 [facility] SARS-COV-2 COVID-19 2020-11-22 Completed [facility] PFIZER VACCINE 00:00:00 [facility] SARS-COV-2 COVID-19 2020-11-22 Completed [facility] PFIZER VACCINE 00:00:00 [facility] SARS-COV-2 COVID-19 2020-11-22 Completed [facility] PFIZER VACCINE 00:00:00 [facility] SARS-COV-2 COVID-19 2020-11-22 Completed [facility] PFIZER VACCINE 00:00:00 [facility] SARS-COV-2 COVID-19 2020-11-22 Completed [facility] PFIZER VACCINE 00:00:00 [facility] SARS-COV-2 COVID-19 2020-11-22 Completed [facility] PFIZER VACCINE 00:00:00 [facility] SARS-COV-2 COVID-19 2020-11-22 Completed [facility] PFIZER VACCINE 00:00:00 [facility] SARS-COV-2 COVID-19 2020-11-22 Completed [facility] of PFIZER VACCINE 00:00:00 [facility] SARS-COV-2 COVID-19 2020-11-22 Completed [facility] of PFIZER VACCINE 00:00:00 [facility] SARS-COV-2 COVID-19 2020-11-22 Completed [facility] of PFIZER VACCINE 00:00:00 [facility] Influenza Virus 2020-05-27 Completed Universit y [...] [facility] of 00:00:00 [facility] TDAP 2019-08-10 Completed [facility] of 00:00:00 [facility] Pneumococcal 2019-08-10 Completed [facility] o f Polysaccharide, 00:00:00 [place] [facility] PPSV23 (PNEUMOVAX) Branch TDAP (ADACEL) VACCINE 2019-08-10 Completed [facility] 00:00:00 [facility] TDAP 2019-08-10 Completed [facility] 00:00:00 [facility] Pneumococcal 2019-08-10 Completed [facility] o f Polysaccharide, 00:00:00 [facility] PPSV23 (PNEUMOVAX) Branch TDAP (ADACEL) VACCINE 2019-08-10 Completed [facility] 00:00:00 [facility] TDAP 2019-08-10 Completed [facility] 00:00:00 [facility] Pneumococcal 2019-08-10 Completed [facility] o f Polysaccharide, 00:00:00 [facility] PPSV23 (PNEUMOVAX) Branch TDAP (ADACEL) VACCINE 2019-08-10 Completed [facility] 00:00:00 [facility] TDAP 2019-08-10 Completed [facility] 00:00:00 [facility] Pneumococcal 2019-08-10 Completed [facility] o f Polysaccharide, 00:00:00 [place] [facility] PPSV23 (PNEUMOVAX) Branch TDAP (ADACEL) VACCINE 2019-08-10 Completed [facility] 00:00:00 [facility] TDAP 2019-08-10 Completed [facility] 00:00:00 [facility] Pneumococcal 2019-08-10 Completed [facility] o f Polysaccharide, 00:00:00 [place] [facility] PPSV23 (PNEUMOVAX) Branch TDAP (ADACEL) VACCINE 2019-08-10 Completed [facility] 00:00:00 [facility] TDAP 2019-08-10 Completed [facility] 00:00:00 [facility] Pneumococcal 2019-08-10 Completed [facility] o f Polysaccharide, 00:00:00 [place] [facility] PPSV23 (PNEUMOVAX) [facility] TDAP (ADACEL) VACCINE 2019-08-10 Completed [facility] vers[facility] 00:00:00 [facility] TDAP 2019-08-10 Completed [facility] 00:00:00 [facility] Pneumococcal 2019-08-10 Completed [facility] o f Polysaccharide, 00:00:00 [place] [facility] PPSV23 (PNEUMOVAX) Branch TDAP (ADACEL) VACCINE 2019-08-10 Completed [facility] vers[facility] 00:00:00 [facility] TDAP 2019-08-10 Completed [facility] 00:00:00 [facility] Pneumococcal 2019-08-10 Completed [facility] o f Polysaccharide, 00:00:00 [facility] PPSV23 (PNEUMOVAX) Branch TDAP (ADACEL) VACCINE 2019-08-10 Completed [facility] vers[facility] 00:00:00 [facility] TDAP 2019-08-10 Completed [facility] of 00:00:00 [facility] Pneumococcal 2019-08-10 Completed [facility] o f Polysaccharide, 00:00:00 [facility] PPSV23 (PNEUMOVAX) Branch TDAP (ADACEL) VACCINE 2019-08-10 Completed [facility] vers[facility] 00:00:00 [facility] TDAP 2019-08-10 Completed [facility] of 00:00:00 [facility] Pneumococcal 2019-08-10 Completed [facility] o f Polysaccharide, 00:00:00 [place] [facility] PPSV23 (PNEUMOVAX) Branch TDAP (ADACEL) VACCINE 2019-08-10 Completed [facility] vers[facility] 00:00:00 [facility] TDAP 2019-08-10 Completed [facility] of 00:00:00 [facility] Pneumococcal 2019-08-10 Completed [facility] o f Polysaccharide, 00:00:00 [place] [facility] PPSV23 (PNEUMOVAX) Branch TDAP (ADACEL) VACCINE 2019-08-10 Completed [facility] vers[facility] 00:00:00 [facility] TDAP 2019-08-10 Completed [facility] 00:00:00 [facility] Pneumococcal 2019-08-10 Completed [facility] o f Polysaccharide, 00:00:00 [place] [facility] PPSV23 (PNEUMOVAX) Branch TDAP (ADACEL) VACCINE 2019-08-10 Completed [facility] vers[facility] 00:00:00 [facility] TDAP 2019-08-10 Completed [facility] 00:00:00 [facility] Pneumococcal 2019-08-10 Completed [facility] o f Polysaccharide, 00:00:00 [place] [facility] PPSV23 (PNEUMOVAX) Branch TDAP (ADACEL) VACCINE 2019-08-10 Completed [facility] vers[facility] 00:00:00 [facility] TDAP 2019-08-10 Completed [facility] of 00:00:00 [facility] Pneumococcal 2019-08-10 Completed [facility] o f Polysaccharide, 00:00:00 [place] [facility] PPSV23 (PNEUMOVAX) Branch TDAP (ADACEL) VACCINE 2019-08-10 Completed [facility] vers[facility] of 00:00:00 [facility] TDAP 2019-08-10 Completed [facility] 00:00:00 [facility] Pneumococcal 2019-08-10 Completed [facility] o f Polysaccharide, 00:00:00 [place] [facility] PPSV23 (PNEUMOVAX) Branch TDAP (ADACEL) VACCINE 2019-08-10 Completed [facility] vers[facility] 00:00:00 [facility] TDAP 2019-08-10 Completed [facility] of 00:00:00 [facility] Pneumococcal 2019-08-10 Completed [facility] o f Polysaccharide, 00:00:00 [place] [facility] PPSV23 (PNEUMOVAX) Branch TDAP (ADACEL) VACCINE 2019-08-10 Completed [facility] vers[facility] 00:00:00 [facility] TDAP 2019-08-10 Completed [facility] of 00:00:00 [facility] Pneumococcal 2019-08-10 Completed [facility] o f Polysaccharide, 00:00:00 [place] [facility] PPSV23 (PNEUMOVAX) [facility] TDAP (ADACEL) VACCINE 2019-08-10 Completed [facility] vers[facility] 00:00:00 [facility] TDAP 2019-08-10 Completed [facility] of 00:00:00 [facility] Pneumococcal 2019-08-10 Completed [facility] o f Polysaccharide, 00:00:00 [place] [facility] PPSV23 (PNEUMOVAX) Branch TDAP (ADACEL) VACCINE 2019-08-10 Completed [facility] 00:00:00 [facility] TDAP 2019-08-10 Completed [facility] 00:00:00 [facility] Pneumococcal 2019-08-10 Completed [facility] o f Polysaccharide, 00:00:00 [place] [facility] PPSV23 (PNEUMOVAX) Branch TDAP (ADACEL) VACCINE 2019-08-10 Completed [facility] vers[facility] 00:00:00 [facility] TDAP 2019-08-10 Completed [facility] of 00:00:00 [facility] Pneumococcal 2019-08-10 Completed [facility] o f Polysaccharide, 00:00:00 [place] [facility] PPSV23 (PNEUMOVAX) Branch TDAP (ADACEL) VACCINE 2019-08-10 Completed [facility] versity of 00:00:00 [facility] TDAP 2019-08-10 Completed [facility] of 00:00:00 [facility] Pneumococcal 2019-08-10 Completed [facility] o f Polysaccharide, 00:00:00 [place] [facility] PPSV23 (PNEUMOVAX) Branch TDAP (ADACEL) VACCINE 2019-08-10 Completed [facility] vers[facility] of 00:00:00 [facility] TDAP 2019-08-10 Completed [facility] of 00:00:00 [facility] Pneumococcal 2019-08-10 Completed [facility] o f Polysaccharide, 00:00:00 [place] [facility] PPSV23 (PNEUMOVAX) Branch TDAP (ADACEL) VACCINE 2019-08-10 Completed [facility] versity of 00:00:00 [facility] TDAP 2019-08-10 Completed [facility] of 00:00:00 [facility] Pneumococcal 2019-08-10 Completed [facility] o f Polysaccharide, 00:00:00 [place] [facility] PPSV23 (PNEUMOVAX) Branch TDAP (ADACEL) VACCINE 2019-08-10 Completed [facility] vers[facility] of 00:00:00 [facility] TDAP 2019-08-10 Completed [facility] of 00:00:00 [facility] Pneumococcal 2019-08-10 Completed [facility] o f Polysaccharide, 00:00:00 [place] [facility] PPSV23 (PNEUMOVAX) Branch TDAP (ADACEL) VACCINE 2019-08-10 Completed [facility] vers[facility] 00:00:00 [facility] TDAP 2019-08-10 Completed [facility] of 00:00:00 [facility] Pneumococcal 2019-08-10 Completed [facility] o f Polysaccharide, 00:00:00 [place] [facility] PPSV23 (PNEUMOVAX) Branch TDAP (ADACEL) VACCINE 2019-08-10 Completed [facility] versity [facility] 00:00:00 [facility] TDAP 2019-08-10 Completed [facility] of 00:00:00 [facility] Pneumococcal 2019-08-10 Completed [facility] o f Polysaccharide, 00:00:00 [place] [facility] PPSV23 (PNEUMOVAX) Branch TDAP (ADACEL) VACCINE 2019-08-10 Completed [facility] vers[facility] 00:00:00 [facility] TDAP 2019-08-10 Completed [facility] of 00:00:00 [facility] Pneumococcal 2019-08-10 Completed [facility] o f Polysaccharide, 00:00:00 [place] [facility] PPSV23 (PNEUMOVAX) Branch TDAP (ADACEL) VACCINE 2019-08-10 Completed [facility] vers[facility] 00:00:00 [facility] TDAP 2019-08-10 Completed [facility] of 00:00:00 [facility] Pneumococcal 2019-08-10 Completed [facility] o f Polysaccharide, 00:00:00 [place] [facility] PPSV23 (PNEUMOVAX) Branch TDAP (ADACEL) VACCINE 2019-08-10 Completed [facility] versity of 00:00:00 [facility] TDAP 2019-08-10 Completed [facility] of 00:00:00 [facility] Pneumococcal 2019-08-10 Completed [facility] o f Polysaccharide, 00:00:00 [place] [facility] PPSV23 (PNEUMOVAX) Branch TDAP (ADACEL) VACCINE 2019-08-10 Completed [facility] vers[facility] 00:00:00 [facility] TDAP 2019-08-10 Completed [facility] of 00:00:00 [facility] Pneumococcal 2019-08-10 Completed [facility] o f Polysaccharide, 00:00:00 [place] [facility] PPSV23 (PNEUMOVAX) Branch TDAP (ADACEL) VACCINE 2019-08-10 Completed [facility] vers[facility] 00:00:00 [facility] TDAP 2019-08-10 Completed [facility] of 00:00:00 [facility] Pneumococcal 2019-08-10 Completed [facility] o f Polysaccharide, 00:00:00 [place] [facility] PPSV23 (PNEUMOVAX) Branch TDAP (ADACEL) VACCINE 2019-08-10 Completed [facility] vers[facility] 00:00:00 [facility] TDAP 2019-08-10 Completed [facility] of 00:00:00 [facility] Pneumococcal 2019-08-10 Completed [facility] o f Polysaccharide, 00:00:00 [place] [facility] PPSV23 (PNEUMOVAX) Branch TDAP (ADACEL) VACCINE 2019-08-10 Completed [facility] 00:00:00 [facility] TDAP 2019-08-10 Completed [facility] 00:00:00 [facility] Pneumococcal 2019-08-10 Completed [facility] o f Polysaccharide, 00:00:00 [place] [facility] PPSV23 (PNEUMOVAX) Branch TDAP (ADACEL) VACCINE 2019-08-10 Completed [facility] vers[facility] 00:00:00 [facility] TDAP 2019-08-10 Completed [facility] of 00:00:00 [facility] Pneumococcal 2019-08-10 Completed [facility] o f Polysaccharide, 00:00:00 [place] [facility] PPSV23 (PNEUMOVAX) Branch TDAP (ADACEL) VACCINE 2019-08-10 Completed [facility] vers[facility] 00:00:00 [facility] TDAP 2019-08-10 Completed [facility] of 00:00:00 [facility] Pneumococcal 2019-08-10 Completed [facility] o f Polysaccharide, 00:00:00 [place] [facility] PPSV23 (PNEUMOVAX) Branch TDAP (ADACEL) VACCINE 2019-08-10 Completed [facility] vers[facility] 00:00:00 [facility] TDAP 2019-08-10 Completed [facility] of 00:00:00 [facility] Pneumococcal 2019-08-10 Completed [facility] o f Polysaccharide, 00:00:00 [place] [facility] PPSV23 (PNEUMOVAX) Branch TDAP (ADACEL) VACCINE 2019-08-10 Completed [facility] vers[facility] 00:00:00 [facility] TDAP 2019-08-10 Completed [facility] of 00:00:00 [facility] Pneumococcal 2019-08-10 Completed University o f Polysaccharide, 00:00:00 [place] [facility] PPSV23 (PNEUMOVAX) Branch TDAP (ADACEL) VACCINE 2019-08-10 Completed [facility] vers[facility] of 00:00:00 [facility] TDAP 2019-08-10 Completed [facility] of 00:00:00 [facility] Pneumococcal 2019-08-10 Completed [facility] o f Polysaccharide, 00:00:00 [place] [facility] PPSV23 (PNEUMOVAX) Branch TDAP (ADACEL) VACCINE 2019-08-10 Completed [facility] vers[facility] 00:00:00 [facility] TDAP 2019-08-10 Completed [facility] 00:00:00 [facility] Pneumococcal 2019-08-10 Completed [facility] o f Polysaccharide, 00:00:00 [place] [facility] PPSV23 (PNEUMOVAX) Branch TDAP (ADACEL) VACCINE 2019-08-10 Completed [facility] 00:00:00 [facility] TDAP 2019-08-10 Completed [facility] 00:00:00 [facility] Pneumococcal 2019-08-10 Completed [facility] o f Polysaccharide, 00:00:00 [place] [facility] PPSV23 (PNEUMOVAX) Branch TDAP (ADACEL) VACCINE 2019-08-10 Completed [facility] vers[facility] 00:00:00 [facility] TDAP 2019-08-10 Completed [facility] 00:00:00 [facility] Pneumococcal 2019-08-10 Completed [facility] o f Polysaccharide, 00:00:00 [place] [facility] PPSV23 (PNEUMOVAX) Branch TDAP (ADACEL) VACCINE 2019-08-10 Completed [facility] vers[facility] of 00:00:00 [facility] TDAP 2019-08-10 Completed [facility] of 00:00:00 [facility] Pneumococcal 2019-08-10 Completed [facility] o f Polysaccharide, 00:00:00 [place] [facility] PPSV23 (PNEUMOVAX) Branch TDAP (ADACEL) VACCINE 2019-08-10 Completed [facility] vers[facility] 00:00:00 [facility] TDAP 2019-08-10 Completed [facility] of 00:00:00 [facility] Pneumococcal 2019-08-10 Completed [facility] o f Polysaccharide, 00:00:00 [place] [facility] PPSV23 (PNEUMOVAX) Branch TDAP (ADACEL) VACCINE 2019-08-10 Completed [facility] vers[facility] 00:00:00 [facility] TDAP 2019-08-10 Completed [facility] of 00:00:00 [facility] Pneumococcal 2019-08-10 Completed [facility] o f Polysaccharide, 00:00:00 [place] [facility] PPSV23 (PNEUMOVAX) Branch TDAP (ADACEL) VACCINE 2019-08-10 Completed [facility] vers[facility] of 00:00:00 [facility] TDAP 2019-08-10 Completed [facility] of 00:00:00 [facility] Pneumococcal 2019-08-10 Completed [facility] o f Polysaccharide, 00:00:00 [place] [facility] PPSV23 (PNEUMOVAX) Branch TDAP (ADACEL) VACCINE 2019-08-10 Completed [facility] vers[facility] 00:00:00 [facility] TDAP 2019-08-10 Completed [facility] of 00:00:00 [facility] Pneumococcal 2019-08-10 Completed [facility] o f Polysaccharide, 00:00:00 [place] [facility] PPSV23 (PNEUMOVAX) Branch TDAP (ADACEL) VACCINE 2019-08-10 Completed [facility] 00:00:00 [facility] TDAP 2019-08-10 Completed [facility] 00:00:00 [facility] Pneumococcal 2019-08-10 Completed [facility] o f Polysaccharide, 00:00:00 [place] [facility] PPSV23 (PNEUMOVAX) Branch TDAP (ADACEL) VACCINE 2019-08-10 Completed [facility] 00:00:00 [facility] TDAP 2019-08-10 Completed [facility] 00:00:00 [facility] Pneumococcal 2019-08-10 Completed [facility] o f Polysaccharide, 00:00:00 [place] [facility] PPSV23 (PNEUMOVAX) Branch TDAP (ADACEL) VACCINE 2019-08-10 Completed [facility] vers[facility] 00:00:00 [facility] TDAP 2019-08-10 Completed [facility] 00:00:00 [facility] Pneumococcal 2019-08-10 Completed [facility] o f Polysaccharide, 00:00:00 [place] [facility] PPSV23 (PNEUMOVAX) Branch TDAP (ADACEL) VACCINE 2019-08-10 Completed [facility] vers[facility] 00:00:00 [facility] TDAP 2019-08-10 Completed [facility] of 00:00:00 [facility] Pneumococcal 2019-08-10 Completed [facility] o f Polysaccharide, 00:00:00 [place] [facility] PPSV23 (PNEUMOVAX) Branch TDAP (ADACEL) VACCINE 2019-08-10 Completed [facility] vers[facility] 00:00:00 [facility] TDAP 2019-08-10 Completed [facility] 00:00:00 [facility] Pneumococcal 2019-08-10 Completed [facility] o f Polysaccharide, 00:00:00 [place] [facility] PPSV23 (PNEUMOVAX) Branch TDAP (ADACEL) VACCINE 2019-08-10 Completed [facility] vers[facility] 00:00:00 [facility] TDAP 2019-08-10 Completed [facility] 00:00:00 [facility] Pneumococcal 2019-08-10 Completed [facility] o f Polysaccharide, 00:00:00 [place] [facility] PPSV23 (PNEUMOVAX) Branch TDAP (ADACEL) VACCINE 2019-08-10 Completed [facility] vers[facility] 00:00:00 [facility] TDAP 2019-08-10 Completed [facility] of 00:00:00 [facility] Pneumococcal 2019-08-10 Completed [facility] o f Polysaccharide, 00:00:00 [facility] PPSV23 (PNEUMOVAX) Branch TDAP (ADACEL) VACCINE 2019-08-10 Completed [facility] vers[facility] 00:00:00 [facility] TDAP 2019-08-10 Completed [facility] 00:00:00 [facility] Pneumococcal 2019-08-10 Completed [facility] o f Polysaccharide, 00:00:00 [place] [facility] PPSV23 (PNEUMOVAX) Branch TDAP (ADACEL) VACCINE 2019-08-10 Completed [facility] vers[facility] 00:00:00 [facility] TDAP 2019-08-10 Completed [facility] 00:00:00 [facility] Pneumococcal 2019-08-10 Completed [facility] o f Polysaccharide, 00:00:00 [place] [facility] PPSV23 (PNEUMOVAX) Branch TDAP (ADACEL) VACCINE 2019-08-10 Completed [facility] vers[facility] 00:00:00 [facility] TDAP 2019-08-10 Completed [facility] 00:00:00 [facility] Pneumococcal 2019-08-10 Completed [facility] o f Polysaccharide, 00:00:00 [place] [facility] PPSV23 (PNEUMOVAX) Branch TDAP (ADACEL) VACCINE 2019-08-10 Completed [facility] vers[facility] 00:00:00 [facility] TDAP 2019-08-10 Completed [facility] of 00:00:00 [facility] Pneumococcal 2019-08-10 Completed [facility] o f Polysaccharide, 00:00:00 [facility] PPSV23 (PNEUMOVAX) Branch TDAP (ADACEL) VACCINE 2019-08-10 Completed [facility] 00:00:00 [facility] TDAP 2019-08-10 Completed [facility] of 00:00:00 [facility] Pneumococcal 2019-08-10 Completed [facility] o f Polysaccharide, 00:00:00 [facility] PPSV23 (PNEUMOVAX) Branch TDAP (ADACEL) VACCINE 2019-08-10 Completed [facility] vers[facility] 00:00:00 [facility] TDAP 2019-08-10 Completed [facility] 00:00:00 [facility] Pneumococcal 2019-08-10 Completed [facility] o f Polysaccharide, 00:00:00 [place] [facility] PPSV23 (PNEUMOVAX) Branch TDAP (ADACEL) VACCINE 2019-08-10 Completed [facility] vers[facility] 00:00:00 [facility] TDAP 2019-08-10 Completed [facility] 00:00:00 [facility] Pneumococcal 2019-08-10 Completed [facility] o f Polysaccharide, 00:00:00 [facility] PPSV23 (PNEUMOVAX) Branch TDAP (ADACEL) VACCINE 2019-08-10 Completed [facility] vers[facility] 00:00:00 [facility] TDAP 2019-08-10 Completed [facility] 00:00:00 [facility] Pneumococcal 2019-08-10 Completed [facility] o f Polysaccharide, 00:00:00 [place] [facility] PPSV23 (PNEUMOVAX) Branch TDAP (ADACEL) VACCINE 2019-08-10 Completed [facility] 00:00:00 [facility] TDAP 2019-08-10 Completed [facility] 00:00:00 [facility] Pneumococcal 2019-08-10 Completed [facility] o f Polysaccharide, 00:00:00 [place] [facility] PPSV23 (PNEUMOVAX) Branch TDAP (ADACEL) VACCINE 2019-08-10 Completed [facility] 00:00:00 [facility] TDAP 2019-08-10 Completed [facility] 00:00:00 [facility] Pneumococcal 2019-08-10 Completed [facility] o f Polysaccharide, 00:00:00 [place] [facility] PPSV23 (PNEUMOVAX) Branch TDAP (ADACEL) VACCINE 2019-08-10 Completed [facility] 00:00:00 [facility] TDAP 2019-08-10 Completed [facility] 00:00:00 [facility] Pneumococcal 2019-08-10 Completed [facility] o f Polysaccharide, 00:00:00 [place] [facility] PPSV23 (PNEUMOVAX) Branch TDAP (ADACEL) VACCINE 2019-08-10 Completed [facility] 00:00:00 [facility] TDAP 2019-08-10 Completed [facility] 00:00:00 [facility] Pneumococcal 2019-08-10 Completed [facility] o f Polysaccharide, 00:00:00 [facility] PPSV23 (PNEUMOVAX) Branch TDAP (ADACEL) VACCINE 2019-08-10 Completed [facility] 00:00:00 [facility] TDAP 2019-08-10 Completed [facility] 00:00:00 [facility] Pneumococcal 2019-08-10 Completed [facility] o f Polysaccharide, 00:00:00 [facility] PPSV23 (PNEUMOVAX) Branch TDAP (ADACEL) VACCINE 2019-08-10 Completed [facility] 00:00:00 [facility] TDAP 2019-08-10 Completed [facility] 00:00:00 [facility] Pneumococcal 2019-08-10 Completed [facility] o f Polysaccharide, 00:00:00 [facility] PPSV23 (PNEUMOVAX) Branch TDAP (ADACEL) VACCINE 2019-08-10 Completed [facility] 00:00:00 [facility] TDAP 2019-08-10 Completed [facility] 00:00:00 [facility] Pneumococcal 2019-08-10 Completed [facility] o f Polysaccharide, 00:00:00 [facility] ical PPSV23 (PNEUMOVAX) Branch TDAP (ADACEL) VACCINE 2019-08-10 Completed Uni versity of 00:00:00 [facility] TDAP 2019-08-10 Completed [facility] 00:00:00 [facility] Influenza Virus 2019-07-04 Completed Universit y of Vaccine 00:00:00 [facility] Influenza Virus 2019-07-04 Completed [facility] of Vaccine Recomb Quad 00:00:00 [facility], Preserv and ABX Branc h Free 18-64 YRS Influenza Virus 2019-07-04 Completed [facility]it y of Vaccine 00:00:00 [facility] Influenza Virus 2019-07-04 Completed [facility]it y of Vaccine Recomb Quad 00:00:00 [facility], Preserv and ABX Branc h Free 18-64 YRS Influenza Virus 2019-07-04 Completed [facility]it y of Vaccine 00:00:00 [facility] Influenza Virus 2019-07-04 Completed [facility]it y of Vaccine Recomb Quad 00:00:00 [facility], Preserv and ABX Branc h Free 18-64 YRS Influenza Virus 2019-07-04 Completed [facility]it y of Vaccine 00:00:00 [facility] Influenza Virus 2019-07-04 Completed [facility]it y of Vaccine Recomb Quad 00:00:00 [facility], Preserv and ABX Branc h Free 18-64 YRS Influenza Virus 2019-07-04 Completed [facility] Vaccine 00:00:00 [facility] Influenza Virus 2019-07-04 Completed [facility] Vaccine Recomb Quad 00:00:00 [facility], Preserv and ABX Branc h Free 18-64 YRS Influenza Virus 2019-07-04 Completed [facility] Vaccine 00:00:00 [facility] Influenza Virus 2019-07-04 Completed [facility] Vaccine Recomb Quad 00:00:00 [facility], Preserv and ABX Branc h Free 18-64 YRS Influenza Virus 2019-07-04 Completed [facility] Vaccine 00:00:00 [facility] Influenza Virus 2019-07-04 Completed [facility] Vaccine Recomb Quad 00:00:00 [facility], Preserv and ABX Branc h Free 18-64 YRS Influenza Virus 2019-07-04 Completed [facility] Vaccine 00:00:00 [facility] Influenza Virus 2019-07-04 Completed [facility] Vaccine Recomb Quad 00:00:00 [facility], Preserv and ABX Branc h Free 18-64 YRS Influenza Virus 2019-07-04 Completed [facility] Vaccine 00:00:00 [facility] Influenza Virus 2019-07-04 Completed [facility] Vaccine Recomb Quad 00:00:00 [facility], Preserv and ABX Branc h Free 18-64 YRS Influenza Virus 2019-07-04 Completed [facility] Vaccine 00:00:00 [facility] Influenza Virus 2019-07-04 Completed [facility] Vaccine Recomb Quad 00:00:00 [facility], Preserv and ABX Branc h Free 18-64 YRS Influenza Virus 2019-07-04 Completed [facility] Vaccine 00:00:00 [facility] Influenza Virus 2019-07-04 Completed [facility] Vaccine Recomb Quad 00:00:00 [facility], Preserv and ABX Branc h Free 18-64 YRS Influenza Virus 2019-07-04 Completed [facility] Vaccine 00:00:00 [facility] Influenza Virus 2019-07-04 Completed [facility] Vaccine Recomb Quad 00:00:00 [facility], Preserv and ABX Branc h Free 18-64 YRS Influenza Virus 2019-07-04 Completed [facility] Vaccine 00:00:00 [facility] Influenza Virus 2019-07-04 Completed [facility] Vaccine Recomb Quad 00:00:00 [facility], Preserv and ABX Branc h Free 18-64 YRS Influenza Virus 2019-07-04 Completed [facility] Vaccine 00:00:00 [facility] Influenza Virus 2019-07-04 Completed [facility] Vaccine Recomb Quad 00:00:00 [facility], Preserv and ABX Branc h Free 18-64 YRS Influenza Virus 2019-07-04 Completed [facility] Vaccine 00:00:00 [facility] Influenza Virus 2019-07-04 Completed [facility] Vaccine Recomb Quad 00:00:00 [facility], Preserv and ABX Branc h Free 18-64 YRS Influenza Virus 2019-07-04 Completed [facility] Vaccine 00:00:00 [facility] Influenza Virus 2019-07-04 Completed [facility] Vaccine Recomb Quad 00:00:00 [facility], Preserv and ABX Branc h Free 18-64 YRS Influenza Virus 2019-07-04 Completed [facility] Vaccine 00:00:00 [facility] Influenza Virus 2019-07-04 Completed [facility] Vaccine Recomb Quad 00:00:00 [facility], Preserv and ABX Branc h Free 18-64 YRS Influenza Virus 2019-07-04 Completed [facility] Vaccine 00:00:00 [facility] Influenza Virus 2019-07-04 Completed [facility] Vaccine Recomb Quad 00:00:00 [facility], Preserv and ABX Branc h Free 18-64 YRS Influenza Virus 2019-07-04 Completed [facility] Vaccine 00:00:00 [facility] Influenza Virus 2019-07-04 Completed [facility] Vaccine Recomb Quad 00:00:00 [facility], Preserv and ABX Branc h Free 18-64 YRS Influenza Virus 2019-07-04 Completed [facility] Vaccine 00:00:00 [facility] Influenza Virus 2019-07-04 Completed [facility] Vaccine Recomb Quad 00:00:00 [facility], Preserv and ABX Branc h Free 18-64 YRS Influenza Virus 2019-07-04 Completed [facility] Vaccine 00:00:00 [facility] Influenza Virus 2019-07-04 Completed [facility] Vaccine Recomb Quad 00:00:00 [facility], Preserv and ABX Branc h Free 18-64 YRS Influenza Virus 2019-07-04 Completed [facility] Vaccine 00:00:00 [facility] Influenza Virus 2019-07-04 Completed [facility] Vaccine Recomb Quad 00:00:00 [facility], Preserv and ABX Branc h Free 18-64 YRS Influenza Virus 2019-07-04 Completed [facility] Vaccine 00:00:00 [facility] Influenza Virus 2019-07-04 Completed [facility] Vaccine Recomb Quad 00:00:00 [facility], Preserv and ABX Branc h Free 18-64 YRS Influenza Virus 2019-07-04 Completed [facility] Vaccine 00:00:00 [facility] Influenza Virus 2019-07-04 Completed [facility] Vaccine Recomb Quad 00:00:00 [facility], Preserv and ABX Branc h Free 18-64 YRS Influenza Virus 2019-07-04 Completed [facility] Vaccine 00:00:00 [facility] Influenza Virus 2019-07-04 Completed [facility] Vaccine Recomb Quad 00:00:00 [facility], Preserv and ABX Branc h Free 18-64 YRS Influenza Virus 2019-07-04 Completed [facility] Vaccine 00:00:00 [facility] Influenza Virus 2019-07-04 Completed [facility] Vaccine Recomb Quad 00:00:00 [facility], Preserv and ABX Branc h Free 18-64 YRS Influenza Virus 2019-07-04 Completed [facility] Vaccine 00:00:00 [facility] Influenza Virus 2019-07-04 Completed [facility] Vaccine Recomb Quad 00:00:00 [facility], Preserv and ABX Branc h Free 18-64 YRS Influenza Virus 2019-07-04 Completed [facility] Vaccine 00:00:00 [facility] Influenza Virus 2019-07-04 Completed [facility] Vaccine Recomb Quad 00:00:00 [facility], Preserv and ABX Branc h Free 18-64 YRS Influenza Virus 2019-07-04 Completed [facility] Vaccine 00:00:00 [facility] Influenza Virus 2019-07-04 Completed [facility] Vaccine Recomb Quad 00:00:00 [facility], Preserv and ABX Branc h Free 18-64 YRS Influenza Virus 2019-07-04 Completed [facility] Vaccine 00:00:00 [facility] Influenza Virus 2019-07-04 Completed [facility] Vaccine Recomb Quad 00:00:00 [facility], Preserv and ABX Branc h Free 18-64 YRS Influenza Virus 2019-07-04 Completed [facility] Vaccine 00:00:00 [facility] Influenza Virus 2019-07-04 Completed [facility] Vaccine Recomb Quad 00:00:00 [facility], Preserv and ABX Branc h Free 18-64 YRS Influenza Virus 2019-07-04 Completed [facility] Vaccine 00:00:00 [facility] Influenza Virus 2019-07-04 Completed [facility] Vaccine Recomb Quad 00:00:00 [facility], Preserv and ABX Branc h Free 18-64 YRS Influenza Virus 2019-07-04 Completed [facility] Vaccine 00:00:00 [facility] Influenza Virus 2019-07-04 Completed [facility] Vaccine Recomb Quad 00:00:00 [facility], Preserv and ABX Branc h Free 18-64 YRS Influenza Virus 2019-07-04 Completed [facility] Vaccine 00:00:00 [facility] Influenza Virus 2019-07-04 Completed [facility] Vaccine Recomb Quad 00:00:00 [facility], Preserv and ABX Branc h Free 18-64 YRS Influenza Virus 2019-07-04 Completed [facility] Vaccine 00:00:00 [facility] Influenza Virus 2019-07-04 Completed [facility] Vaccine Recomb Quad 00:00:00 [facility], Preserv and ABX Branc h Free 18-64 YRS Influenza Virus 2019-07-04 Completed [facility] Vaccine 00:00:00 [facility] Influenza Virus 2019-07-04 Completed [facility] Vaccine Recomb Quad 00:00:00 [facility], Preserv and ABX Branc h Free 18-64 YRS Influenza Virus 2019-07-04 Completed [facility] Vaccine 00:00:00 [facility] Influenza Virus 2019-07-04 Completed [facility] Vaccine Recomb Quad 00:00:00 [facility], Preserv and ABX Branc h Free 18-64 YRS Influenza Virus 2019-07-04 Completed [facility] Vaccine 00:00:00 [facility] Influenza Virus 2019-07-04 Completed [facility] Vaccine Recomb Quad 00:00:00 [facility], Preserv and ABX Branc h Free 18-64 YRS Influenza Virus 2019-07-04 Completed [facility] Vaccine 00:00:00 [facility] Influenza Virus 2019-07-04 Completed [facility] Vaccine Recomb Quad 00:00:00 [facility], Preserv and ABX Branc h Free 18-64 YRS Influenza Virus 2019-07-04 Completed [facility] Vaccine 00:00:00 [facility] Influenza Virus 2019-07-04 Completed [facility] Vaccine Recomb Quad 00:00:00 [facility], Preserv and ABX Branc h Free 18-64 YRS Influenza Virus 2019-07-04 Completed [facility] Vaccine 00:00:00 [facility] Influenza Virus 2019-07-04 Completed [facility] Vaccine Recomb Quad 00:00:00 [facility], Preserv and ABX Branc h Free 18-64 YRS Influenza Virus 2019-07-04 Completed [facility] Vaccine 00:00:00 [facility] Influenza Virus 2019-07-04 Completed [facility] Vaccine Recomb Quad 00:00:00 [facility], Preserv and ABX Branc h Free 18-64 YRS Influenza Virus 2019-07-04 Completed [facility] Vaccine 00:00:00 [facility] Influenza Virus 2019-07-04 Completed [facility] Vaccine Recomb Quad 00:00:00 [facility], Preserv and ABX Branc h Free 18-64 YRS Influenza Virus 2019-07-04 Completed [facility] Vaccine 00:00:00 [facility] Influenza Virus 2019-07-04 Completed [facility] Vaccine Recomb Quad 00:00:00 [facility], Preserv and ABX Branc h Free 18-64 YRS Influenza Virus 2019-07-04 Completed [facility] Vaccine 00:00:00 [facility] Influenza Virus 2019-07-04 Completed [facility] Vaccine Recomb Quad 00:00:00 [facility], Preserv and ABX Branc h Free 18-64 YRS Influenza Virus 2019-07-04 Completed [facility] Vaccine 00:00:00 [facility] Influenza Virus 2019-07-04 Completed [facility] Vaccine Recomb Quad 00:00:00 [facility], Preserv and ABX Branc h Free 18-64 YRS Influenza Virus 2019-07-04 Completed [facility] Vaccine 00:00:00 [facility] Influenza Virus 2019-07-04 Completed [facility] Vaccine Recomb Quad 00:00:00 [facility], Preserv and ABX Branc h Free 18-64 YRS Influenza Virus 2019-07-04 Completed [facility] Vaccine 00:00:00 [facility] Influenza Virus 2019-07-04 Completed [facility] Vaccine Recomb Quad 00:00:00 [facility], Preserv and ABX Branc h Free 18-64 YRS Influenza Virus 2019-07-04 Completed [facility] Vaccine 00:00:00 [facility] Influenza Virus 2019-07-04 Completed [facility] Vaccine Recomb Quad 00:00:00 [facility], Preserv and ABX Branc h Free 18-64 YRS Influenza Virus 2019-07-04 Completed [facility] Vaccine 00:00:00 [facility] Influenza Virus 2019-07-04 Completed [facility] Vaccine Recomb Quad 00:00:00 [facility], Preserv and ABX Branc h Free 18-64 YRS Influenza Virus 2019-07-04 Completed [facility] Vaccine 00:00:00 [facility] Influenza Virus 2019-07-04 Completed [facility] Vaccine Recomb Quad 00:00:00 [facility], Preserv and ABX Branc h Free 18-64 YRS Influenza Virus 2019-07-04 Completed [facility] Vaccine 00:00:00 [facility] Influenza Virus 2019-07-04 Completed [facility] Vaccine Recomb Quad 00:00:00 [facility], Preserv and ABX Branc h Free 18-64 YRS Influenza Virus 2019-07-04 Completed [facility] Vaccine 00:00:00 [facility] Influenza Virus 2019-07-04 Completed [facility] of Vaccine Recomb Quad 00:00:00 [facility], Preserv and ABX Branc h Free 18-64 YRS Influenza Virus 2019-07-04 Completed [facility] Vaccine 00:00:00 [facility] Influenza Virus 2019-07-04 Completed [facility] of Vaccine Recomb Quad 00:00:00 [facility], Preserv and ABX Branc h Free 18-64 YRS Influenza Virus 2019-07-04 Completed [facility] Vaccine 00:00:00 [facility] Influenza Virus 2019-07-04 Completed [facility] of Vaccine Recomb Quad 00:00:00 [facility], Preserv and ABX Branc h Free 18-64 YRS Influenza Virus 2019-07-04 Completed [facility] Vaccine 00:00:00 [facility] Influenza Virus 2019-07-04 Completed [facility] of Vaccine Recomb Quad 00:00:00 [facility], Preserv and ABX Branc h Free 18-64 YRS Influenza Virus 2019-07-04 Completed [facility] Vaccine 00:00:00 [facility] Influenza Virus 2019-07-04 Completed [facility] of Vaccine Recomb Quad 00:00:00 [facility], Preserv and ABX Branc h Free 18-64 YRS Influenza Virus 2019-07-04 Completed [facility] Vaccine 00:00:00 [facility] Influenza Virus 2019-07-04 Completed [facility] of Vaccine Recomb Quad 00:00:00 [facility], Preserv and ABX Branc h Free 18-64 YRS Influenza Virus 2019-07-04 Completed [facility] Vaccine 00:00:00 [facility] Influenza Virus 2019-07-04 Completed [facility] of Vaccine Recomb Quad 00:00:00 [facility], Preserv and ABX Branc h Free 18-64 YRS Influenza Virus 2019-07-04 Completed [facility] Vaccine 00:00:00 [facility] Influenza Virus 2019-07-04 Completed [facility] of Vaccine Recomb Quad 00:00:00 [facility], Preserv and ABX Branc h Free 18-64 YRS Influenza Virus 2019-07-04 Completed [facility] Vaccine 00:00:00 [facility] Influenza Virus 2019-07-04 Completed [facility] of Vaccine Recomb Quad 00:00:00 [facility], Preserv and ABX Branc h Free 18-64 YRS Influenza Virus 2019-07-04 Completed [facility] Vaccine 00:00:00 [facility] Influenza Virus 2019-07-04 Completed [facility] of Vaccine Recomb Quad 00:00:00 [facility], Preserv and ABX Branc h Free 18-64 YRS Influenza Virus 2019-07-04 Completed [facility] Vaccine 00:00:00 [facility] Influenza Virus 2019-07-04 Completed [facility] of Vaccine Recomb Quad 00:00:00 [facility], Preserv and ABX Branc h Free 18-64 YRS Influenza Virus 2019-07-04 Completed [facility] Vaccine 00:00:00 [facility] Influenza Virus 2019-07-04 Completed [facility] of Vaccine Recomb Quad 00:00:00 [facility], Preserv and ABX Branc h Free 18-64 YRS Influenza Virus 2019-07-04 Completed [facility] Vaccine 00:00:00 [facility] Influenza Virus 2019-07-04 Completed [facility] of Vaccine Recomb Quad 00:00:00 [facility], Preserv and ABX Branc h Free 18-64 YRS Influenza Virus 2019-07-04 Completed [facility] Vaccine 00:00:00 [facility] Influenza Virus 2019-07-04 Completed [facility] of Vaccine Recomb Quad 00:00:00 [facility], Preserv and ABX Branc h Free 18-64 YRS Influenza Virus 2019-07-04 Completed [facility] Vaccine 00:00:00 [facility] Influenza Virus 2019-07-04 Completed [facility] of Vaccine Recomb Quad 00:00:00 [facility], Preserv and ABX Branc h Free 18-64 YRS Influenza Virus 2019-07-04 Completed [facility] Vaccine 00:00:00 [facility] Influenza Virus 2019-07-04 Completed [facility] of Vaccine Recomb Quad 00:00:00 [facility], Preserv and ABX Branc h Free 18-64 YRS Influenza Virus 2019-07-04 Completed [facility] Vaccine 00:00:00 [facility] Influenza Virus 2019-07-04 Completed [facility] of Vaccine Recomb Quad 00:00:00 [facility], Preserv and ABX Branc h [...] of Vaccine Quad ID [id number] 00:00:00 [facility] Influenza Virus 2017-06-15 Completed Univers[facility] y [...] [facility] Vaccine Quad IM 00:00:00 [facility] Multi-dose 6+ [facility] Influenza [...] [facility] Vaccine Quad IM 00:00:00 [facility] Multi-dose 6+ [facility] Influenza Virus 2016-08-05 Completed [facility] of Vaccine Quad IM 00:00:00 [facility] Multi-dose 6+ MO Branch Pneumococcal 13 2016-03-07 Completed [facility] of Conjugate, PCV13 00:00:00 [facility] dical (Prevnar 13) Branch Meningococcal B, OMV 2016-03-07 Completed Univ ersity of 00:00:00 [facility] Pneumococcal 13 2016-03-07 Completed [facility] of Conjugate, PCV13 00:00:00 [facility] dical (Prevnar 13) Branch Meningococcal B, OMV 2016-03-07 Completed Univ ersity of 00:00:00 [facility] Pneumococcal 13 2016-03-07 Completed [facility] of Conjugate, PCV13 00:00:00 [facility] dical (Prevnar 13) Branch Meningococcal B, V 2016-03-07 Completed Univ ersity of 00:00:00 [facility] Pneumococcal 13 2016-03-07 Completed [facility] of Conjugate, PCV13 00:00:00 [facility] dical (Prevnar 13) Branch Meningococcal B, V 2016-03-07 Completed Univ ersity of 00:00:00 [facility] Pneumococcal 13 2016-03-07 Completed [facility] of Conjugate, PCV13 00:00:00 [facility] dical (Prevnar 13) Branch Meningococcal B, V 2016-03-07 Completed Univ ersity of 00:00:00 [facility] Pneumococcal 13 2016-03-07 Completed [facility] of Conjugate, PCV13 00:00:00 [facility] dical (Prevnar 13) Branch Meningococcal B, V 2016-03-07 Completed Univ ersity of 00:00:00 [facility] Pneumococcal 13 2016-03-07 Completed [facility] of Conjugate, PCV13 00:00:00 [facility] dical (Prevnar 13) Branch Meningococcal B, OMV 2016-03-07 Completed Univ ersity of 00:00:00 [facility] Pneumococcal 13 2016-03-07 Completed [facility] of Conjugate, PCV13 00:00:00 [facility] dical (Prevnar 13) Branch Meningococcal B, OMV 2016-03-07 Completed Univ ersity of 00:00:00 [facility] Pneumococcal 13 2016-03-07 Completed [facility] of Conjugate, PCV13 00:00:00 [facility] dical (Prevnar 13) Branch Meningococcal B, V 2016-03-07 Completed Univ ersity of 00:00:00 [facility] Pneumococcal 13 2016-03-07 Completed [facility] of Conjugate, PCV13 00:00:00 [facility] (Prevnar 13) Branch Meningococcal B, V 2016-03-07 Completed Univ ersity of 00:00:00 [facility] Pneumococcal 13 2016-03-07 Completed [facility] of Conjugate, PCV13 00:00:00 [facility] (Prevnar 13) Branch Meningococcal B, V 2016-03-07 Completed Univ ersity of 00:00:00 [facility] Pneumococcal 13 2016-03-07 Completed [facility] of Conjugate, PCV13 00:00:00 [facility] (Prevnar 13) Branch Meningococcal B, V 2016-03-07 Completed Univ ersity of 00:00:00 [facility] Pneumococcal 13 2016-03-07 Completed [facility] of Conjugate, PCV13 00:00:00 [facility] (Prevnar 13) Branch Meningococcal B, [facility] 2016-03-07 Completed Univ ersity of 00:00:00 [facility] Pneumococcal 13 2016-03-07 Completed [facility] Conjugate, PCV13 00:00:00 [facility] (Prevnar 13) Branch Meningococcal B, [facility] 2016-03-07 Completed Univ ersity of 00:00:00 [facility] Pneumococcal 13 2016-03-07 Completed [facility] of Conjugate, PCV13 00:00:00 [facility] (Prevnar 13) Branch Meningococcal B, V 2016-03-07 Completed [facility] ersity of 00:00:00 [facility] Pneumococcal 13 2016-03-07 Completed [facility] of Conjugate, PCV13 00:00:00 [facility] (Prevnar 13) Branch Meningococcal B, [facility] 2016-03-07 Completed Univ ersity of 00:00:00 [facility] Pneumococcal 13 2016-03-07 Completed [facility] of Conjugate, PCV13 00:00:00 [facility] (Prevnar 13) Branch Meningococcal B, [facility] 2016-03-07 Completed Univ ersity of 00:00:00 [facility] Pneumococcal 13 2016-03-07 Completed [facility] of Conjugate, PCV13 00:00:00 [facility] (Prevnar 13) Branch Meningococcal B, [facility] 2016-03-07 Completed Univ ersity of 00:00:00 [facility] Pneumococcal 13 2016-03-07 Completed [facility] of Conjugate, PCV13 00:00:00 [facility] (Prevnar 13) Branch Meningococcal B, V 2016-03-07 Completed Univ ersity of 00:00:00 [facility] Pneumococcal 13 2016-03-07 Completed [facility] of Conjugate, PCV13 00:00:00 [facility] (Prevnar 13) Branch Meningococcal B, V 2016-03-07 Completed Univ ersity of 00:00:00 [facility] Pneumococcal 13 2016-03-07 Completed [facility] of Conjugate, PCV13 00:00:00 [facility] (Prevnar 13) Branch Meningococcal B, [facility] 2016-03-07 Completed Univ ersity of 00:00:00 [facility] Pneumococcal 13 2016-03-07 Completed [facility] of Conjugate, PCV13 00:00:00 [facility] (Prevnar 13) Branch Meningococcal B, [facility] 2016-03-07 Completed Univ ersity of 00:00:00 [facility] Pneumococcal 13 2016-03-07 Completed [facility] of Conjugate, PCV13 00:00:00 [facility] (Prevnar 13) Branch Meningococcal B, [facility] 2016-03-07 Completed Univ ersity of 00:00:00 [facility] Pneumococcal 13 2016-03-07 Completed [facility] of Conjugate, PCV13 00:00:00 [facility] (Prevnar 13) Branch Meningococcal B, [facility] 2016-03-07 Completed Univ ersity of 00:00:00 [facility] Pneumococcal 13 2016-03-07 Completed [facility] of Conjugate, PCV13 00:00:00 [facility] (Prevnar 13) Branch Meningococcal B, [facility] 2016-03-07 Completed Univ ersity of 00:00:00 [facility] Pneumococcal 13 2016-03-07 Completed [facility] of Conjugate, PCV13 00:00:00 [facility] (Prevnar 13) Branch Meningococcal B, [facility] 2016-03-07 Completed Univ ersity of 00:00:00 [facility] Pneumococcal 13 2016-03-07 Completed [facility] of Conjugate, PCV13 00:00:00 [facility] (Prevnar 13) Branch Meningococcal B, [facility] 2016-03-07 Completed Univ ersity of 00:00:00 [facility] Pneumococcal 13 2016-03-07 Completed [facility] of Conjugate, PCV13 00:00:00 [facility] (Prevnar 13) Branch Meningococcal B, V 2016-03-07 Completed [facility] ersity of 00:00:00 [facility] Pneumococcal 13 2016-03-07 Completed [facility] of Conjugate, PCV13 00:00:00 [facility] (Prevnar 13) Branch Meningococcal B, V 2016-03-07 Completed Univ ersity of 00:00:00 [facility] Pneumococcal 13 2016-03-07 Completed [facility]it y of Conjugate, PCV13 00:00:00 [place] [facility] (Prevnar 13) Branch Meningococcal B, V 2016-03-07 Completed Univ ersity of 00:00:00 [facility] Pneumococcal 13 2016-03-07 Completed [facility]it [facility] of Conjugate, PCV13 00:00:00 [place] [facility] (Prevnar 13) [facility] Meningococcal B, [facility] 2016-03-07 Completed Univ ersity of 00:00:00 [facility] Pneumococcal 13 2016-03-07 Completed [facility]it y of Conjugate, PCV13 00:00:00 [place] [facility] (Prevnar 13) [facility] Meningococcal B, [facility] 2016-03-07 Completed Univ ersity of 00:00:00 [facility] Pneumococcal 13 2016-03-07 Completed [facility]it y of Conjugate, PCV13 00:00:00 [place] [facility] (Prevnar 13) [facility] Meningococcal B, [facility] 2016-03-07 Completed Univ ersity of 00:00:00 [facility] Pneumococcal 13 2016-03-07 Completed [facility]it [facility] of Conjugate, PCV13 00:00:00 [place] [facility] (Prevnar 13) [facility] Meningococcal B, [facility] 2016-03-07 Completed Univ ersity of 00:00:00 [facility] Pneumococcal 13 2016-03-07 Completed [facility]it y of Conjugate, PCV13 00:00:00 [place] [facility] (Prevnar 13) [facility] Meningococcal B, [facility] 2016-03-07 Completed Univ ersity of 00:00:00 [facility] Pneumococcal 13 2016-03-07 Completed [facility]it [facility] of Conjugate, PCV13 00:00:00 [place] [facility] (Prevnar 13) [facility] Meningococcal B, [facility] 2016-03-07 Completed Univ ersity of 00:00:00 [facility] Pneumococcal 13 2016-03-07 Completed [facility]it y of Conjugate, PCV13 00:00:00 [place] [facility] (Prevnar 13) [facility] Meningococcal B, V 2016-03-07 Completed Univ ersity of 00:00:00 [facility] Pneumococcal 13 2016-03-07 Completed [facility]it y of Conjugate, PCV13 00:00:00 [place] [facility] (Prevnar 13) Branch Meningococcal B, V 2016-03-07 Completed Univ ersity of 00:00:00 [facility] Pneumococcal 13 2016-03-07 Completed [facility]it y of Conjugate, PCV13 00:00:00 [place] [facility] (Prevnar 13) Branch Meningococcal B, V 2016-03-07 Completed Univ ersity of 00:00:00 [facility] Pneumococcal 13 2016-03-07 Completed [facility]it y of Conjugate, PCV13 00:00:00 [place] [facility] (Prevnar 13) Branch Meningococcal B, V 2016-03-07 Completed Univ ersity of 00:00:00 [facility] Pneumococcal 13 2016-03-07 Completed [facility]it [facility] of Conjugate, PCV13 00:00:00 [place] [facility] (Prevnar 13) Branch Meningococcal B, [facility] 2016-03-07 Completed Univ ersity of 00:00:00 [facility] Pneumococcal 13 2016-03-07 Completed [facility]it y of Conjugate, PCV13 00:00:00 [place] [facility] (Prevnar 13) [facility] Meningococcal B, [facility] 2016-03-07 Completed Univ ersity of 00:00:00 [facility] Pneumococcal 13 2016-03-07 Completed [facility]it y of Conjugate, PCV13 00:00:00 [place] [facility] (Prevnar 13) [facility] Meningococcal B, [facility] 2016-03-07 Completed Univ ersity of 00:00:00 [facility] Pneumococcal 13 2016-03-07 Completed [facility]it y of Conjugate, PCV13 00:00:00 [place] [facility] (Prevnar 13) [facility] Meningococcal B, [facility] 2016-03-07 Completed Univ ersity of 00:00:00 [facility] Pneumococcal 13 2016-03-07 Completed [facility]it y of Conjugate, PCV13 00:00:00 [place] [facility] (Prevnar 13) Branch Meningococcal B, [facility] 2016-03-07 Completed Univ ersity of 00:00:00 [facility] Pneumococcal 13 2016-03-07 Completed [facility]it y of Conjugate, PCV13 00:00:00 [place] [facility] (Prevnar 13) Branch Meningococcal B, V 2016-03-07 Completed Univ ersity of 00:00:00 [facility] Pneumococcal 13 2016-03-07 Completed [facility]it y of Conjugate, PCV13 00:00:00 [place] [facility] (Prevnar 13) Branch Meningococcal B, V 2016-03-07 Completed Univ ersity of 00:00:00 [facility] Pneumococcal 13 2016-03-07 Completed [facility]it y of Conjugate, PCV13 00:00:00 [place] [facility] (Prevnar 13) Branch Meningococcal B, V 2016-03-07 Completed Univ ersity of 00:00:00 [facility] Pneumococcal 13 2016-03-07 Completed [facility]it y of Conjugate, PCV13 00:00:00 [place] [facility] (Prevnar 13) Branch Meningococcal B, [facility] 2016-03-07 Completed Univ ersity of 00:00:00 [facility] Pneumococcal 13 2016-03-07 Completed [facility]it y of Conjugate, PCV13 00:00:00 [place] [facility] (Prevnar 13) Branch Meningococcal B, [facility] 2016-03-07 Completed Univ ersity of 00:00:00 [facility] Pneumococcal 13 2016-03-07 Completed [facility]it y of Conjugate, PCV13 00:00:00 [place] [facility] (Prevnar 13) Branch Meningococcal B, [facility] 2016-03-07 Completed Univ ersity of 00:00:00 [facility] Pneumococcal 13 2016-03-07 Completed [facility]it y of Conjugate, PCV13 00:00:00 [place] [facility] (Prevnar 13) Branch Meningococcal B, [facility] 2016-03-07 Completed Univ ersity of 00:00:00 [facility] Pneumococcal 13 2016-03-07 Completed [facility]it y of Conjugate, PCV13 00:00:00 [place] [facility] (Prevnar 13) Branch Meningococcal B, [facility] 2016-03-07 Completed Univ ersity of 00:00:00 [facility] Pneumococcal 13 2016-03-07 Completed [facility]it y of Conjugate, PCV13 00:00:00 [place] [facility] (Prevnar 13) Branch Meningococcal B, [facility] 2016-03-07 Completed Univ ersity of 00:00:00 [facility] Pneumococcal 13 2016-03-07 Completed [facility]it y of Conjugate, PCV13 00:00:00 [place] [facility] (Prevnar 13) [facility] Meningococcal B, V 2016-03-07 Completed Univ ersity of 00:00:00 [facility] Pneumococcal 13 2016-03-07 Completed [facility]it y of Conjugate, PCV13 00:00:00 [place] [facility] (Prevnar 13) Branch Meningococcal B, V 2016-03-07 Completed Univ ersity of 00:00:00 [facility] Pneumococcal 13 2016-03-07 Completed Universit y of Conjugate, PCV13 00:00:00 [facility] dical (Prevnar 13) Branch Meningococcal B, [facility] 2016-03-07 Completed Univ ersity of 00:00:00 [facility] Pneumococcal 13 2016-03-07 Completed [facility]it y of Conjugate, PCV13 00:00:00 [place] [facility] (Prevnar 13) Branch Meningococcal B, [facility] 2016-03-07 Completed Univ ersity of 00:00:00 [facility] Pneumococcal 13 2016-03-07 Completed [facility]it y of Conjugate, PCV13 00:00:00 [facility] dical (Prevnar 13) Branch Meningococcal B, [facility] 2016-03-07 Completed Univ ersity of 00:00:00 [facility] Pneumococcal 13 2016-03-07 Completed [facility]it y of Conjugate, PCV13 00:00:00 [facility] dical (Prevnar 13) Branch Meningococcal B, [facility] 2016-03-07 Completed Univ ersity of 00:00:00 [facility] Pneumococcal 13 2016-03-07 Completed [facility]it y of Conjugate, PCV13 00:00:00 [facility] dical (Prevnar 13) Branch Meningococcal B, [facility] 2016-03-07 Completed Univ ersity of 00:00:00 [facility] Pneumococcal 13 2016-03-07 Completed [facility]it y of Conjugate, PCV13 00:00:00 [place] [facility] (Prevnar 13) Branch Meningococcal B, [facility] 2016-03-07 Completed Univ ersity of 00:00:00 [facility] Pneumococcal 13 2016-03-07 Completed [facility]it y of Conjugate, PCV13 00:00:00 [place] [facility] (Prevnar 13) Branch Meningococcal B, V 2016-03-07 Completed Univ ersity of 00:00:00 [facility] Pneumococcal 13 2016-03-07 Completed [facility]it y of Conjugate, PCV13 00:00:00 [place] [facility] (Prevnar 13) Branch Meningococcal B, V 2016-03-07 Completed Univ ersity of 00:00:00 [facility] Pneumococcal 13 2016-03-07 Completed Universit y of Conjugate, PCV13 00:00:00 [place] [facility] (Prevnar 13) Branch Meningococcal B, [facility] 2016-03-07 Completed Univ ersity of 00:00:00 [facility] Pneumococcal 13 2016-03-07 Completed [facility]it y of Conjugate, PCV13 00:00:00 [place] [facility] (Prevnar 13) Branch Meningococcal B, [facility] 2016-03-07 Completed Univ ersity of 00:00:00 [facility] Pneumococcal 13 2016-03-07 Completed [facility]it y of Conjugate, PCV13 00:00:00 [place] [facility] (Prevnar 13) Branch Meningococcal B, [facility] 2016-03-07 Completed Univ ersity of 00:00:00 [facility] Pneumococcal 13 2016-03-07 Completed [facility]it [facility] of Conjugate, PCV13 00:00:00 [place] [facility] (Prevnar 13) Branch Meningococcal B, [facility] 2016-03-07 Completed Univ ersity of 00:00:00 [facility] Pneumococcal 13 2016-03-07 Completed [facility]it y of Conjugate, PCV13 00:00:00 [place] [facility] (Prevnar 13) Branch Meningococcal B, [facility] 2016-03-07 Completed Univ ersity of 00:00:00 [facility] Heamophilus Influenza 2015-11-13 Completed Uni versity of B 00:00:00 [facility] Heamophilus Influenza 2015-11-13 Completed Uni versity of B 00:00:00 [facility] Heamophilus Influenza 2015-11-13 Completed Uni versity of B 00:00:00 [facility] Heamophilus Influenza 2015-11-13 Completed Uni versity of B 00:00:00 [facility] Heamophilus Influenza 2015-11-13 Completed Uni versity of B 00:00:00 [facility] Heamophilus Influenza 2015-11-13 Completed Uni versity of B 00:00:00 [facility] Heamophilus Influenza 2015-11-13 Completed Uni versity of B 00:00:00 [facility] Heamophilus Influenza 2015-11-13 Completed Uni versity of B 00:00:00 [facility] Heamophilus Influenza 2015-11-13 Completed Uni versity of B 00:00:00 [facility] Heamophilus Influenza 2015-11-13 Completed Uni versity of B 00:00:00 [facility] Heamophilus Influenza 2015-11-13 Completed Uni versity of B 00:00:00 [facility] Heamophilus Influenza 2015-11-13 Completed Uni versity of B 00:00:00 [facility] Heamophilus Influenza 2015-11-13 Completed Uni versity of B 00:00:00 [facility] Heamophilus Influenza 2015-11-13 Completed Uni versity of B 00:00:00 [facility] Heamophilus Influenza 2015-11-13 Completed Uni versity of B 00:00:00 [facility] Heamophilus Influenza 2015-11-13 Completed Uni versity of B 00:00:00 [facility] Heamophilus Influenza 2015-11-13 Completed Uni versity of B 00:00:00 [facility] Heamophilus Influenza 2015-11-13 Completed Uni versity of B 00:00:00 [facility] Heamophilus Influenza 2015-11-13 Completed Uni versity of B 00:00:00 [facility] Heamophilus Influenza 2015-11-13 Completed Uni versity of B 00:00:00 [facility] Heamophilus Influenza 2015-11-13 Completed Uni versity of B 00:00:00 [facility] Heamophilus Influenza 2015-11-13 Completed Uni versity of B 00:00:00 [facility] Heamophilus Influenza 2015-11-13 Completed Uni versity of B 00:00:00 [facility] Heamophilus Influenza 2015-11-13 Completed Uni versity of B 00:00:00 [facility] Heamophilus Influenza 2015-11-13 Completed Uni versity of B 00:00:00 [facility] Heamophilus Influenza 2015-11-13 Completed Uni versity of B 00:00:00 [facility] Heamophilus Influenza 2015-11-13 Completed Uni versity of B 00:00:00 [facility] Heamophilus Influenza 2015-11-13 Completed Uni versity of B 00:00:00 [facility] Heamophilus Influenza 2015-11-13 Completed Uni versity of B 00:00:00 [facility] Heamophilus Influenza 2015-11-13 Completed Uni versity of B 00:00:00 [facility] Heamophilus Influenza 2015-11-13 Completed Uni versity of B 00:00:00 [facility] Heamophilus Influenza 2015-11-13 Completed Uni versity of B 00:00:00 [facility] Heamophilus Influenza 2015-11-13 Completed Uni versity of B 00:00:00 [facility] Heamophilus Influenza 2015-11-13 Completed Uni versity of B 00:00:00 [facility] Heamophilus Influenza 2015-11-13 Completed Uni versity of B 00:00:00 [facility] Heamophilus Influenza 2015-11-13 Completed Uni versity of B 00:00:00 [facility] Heamophilus Influenza 2015-11-13 Completed Uni versity of B 00:00:00 [facility] Heamophilus Influenza 2015-11-13 Completed Uni versity of B 00:00:00 [facility] Heamophilus Influenza 2015-11-13 Completed Uni versity of B 00:00:00 [facility] Heamophilus Influenza 2015-11-13 Completed Uni versity of B 00:00:00 [facility] Heamophilus Influenza 2015-11-13 Completed Uni versity of B 00:00:00 [facility] Heamophilus Influenza 2015-11-13 Completed Uni versity of B 00:00:00 [facility] Heamophilus Influenza 2015-11-13 Completed Uni versity of B 00:00:00 [facility] Heamophilus Influenza 2015-11-13 Completed Uni versity of B 00:00:00 [facility] Heamophilus Influenza 2015-11-13 Completed Uni versity of B 00:00:00 [facility] Heamophilus Influenza 2015-11-13 Completed Uni versity of B 00:00:00 [facility] Heamophilus Influenza 2015-11-13 Completed Uni versity of B 00:00:00 [facility] Heamophilus Influenza 2015-11-13 Completed Uni versity of B 00:00:00 [facility] Heamophilus Influenza 2015-11-13 Completed Uni versity of B 00:00:00 [facility] Heamophilus Influenza 2015-11-13 Completed Uni versity of B 00:00:00 [facility] Heamophilus Influenza 2015-11-13 Completed Uni versity of B 00:00:00 [facility] Heamophilus Influenza 2015-11-13 Completed Uni versity of B 00:00:00 [facility] Heamophilus Influenza 2015-11-13 Completed Uni versity of B 00:00:00 [facility] Heamophilus Influenza 2015-11-13 Completed Uni versity of B 00:00:00 [facility] Heamophilus Influenza 2015-11-13 Completed Uni versity of B 00:00:00 [facility] Heamophilus Influenza 2015-11-13 Completed Uni versity of B 00:00:00 [facility] Heamophilus Influenza 2015-11-13 Completed Uni versity of B 00:00:00 [facility] Heamophilus Influenza 2015-11-13 Completed Uni versity of B 00:00:00 [facility] Heamophilus Influenza 2015-11-13 Completed Uni versity of B 00:00:00 [facility] Heamophilus Influenza 2015-11-13 Completed Uni versity of B 00:00:00 [facility] Heamophilus Influenza 2015-11-13 Completed Uni versity of B 00:00:00 [facility] Heamophilus Influenza 2015-11-13 Completed Uni versity of B 00:00:00 [facility] Heamophilus Influenza 2015-11-13 Completed Uni versity of B 00:00:00 [facility] Heamophilus Influenza 2015-11-13 Completed Uni versity of B 00:00:00 [facility] Heamophilus Influenza 2015-11-13 Completed Uni versity of B 00:00:00 [facility] Heamophilus Influenza 2015-11-13 Completed Uni versity of B 00:00:00 [facility] Heamophilus Influenza 2015-11-13 Completed Uni versity of B 00:00:00 [facility] Heamophilus Influenza 2015-11-13 Completed Uni versity of B 00:00:00 [facility] Heamophilus Influenza 2015-11-13 Completed Uni versity of B 00:00:00 [facility] Meningococcal 2015-11-12 Completed University of Polysaccharide 00:00:00 [place] [facility] (groups A, C, Y and Branc h W-135) conjugate vaccine (MCV4P) Meningococcal 2015-11-12 Completed [facility] Polysaccharide 00:00:00 [place] [facility] (groups A, C, Y and [...] Completed [facility] Polysaccharide 00:00:00 [place] [facility] (groups A, C, Y and Branc h [...] Meningococcal 2015-11-12 Completed [facility] Polysaccharide 00:00:00 [place] [facility] (groups A, C, Y and Branc h W-135) conjugate vaccine (MCV4P) TDAP 2015-10-31 Completed University of 00:00:00 [facility] TDAP 2015-10-31 Completed University of 00:00:00 [facility] TDAP 2015-10-31 Completed University of 00:00:00 [facility] TDAP 2015-10-31 Completed University of 00:00:00 [facility] TDAP 2015-10-31 Completed University of 00:00:00 [facility] TDAP 2015-10-31 Completed University of 00:00:00 [facility] TDAP 2015-10-31 Completed University of 00:00:00 [facility] TDAP 2015-10-31 Completed University of 00:00:00 [facility] TDAP 2015-10-31 Completed University of 00:00:00 [facility] TDAP 2015-10-31 Completed University of 00:00:00 [facility] TDAP 2015-10-31 Completed University of 00:00:00 [facility] TDAP 2015-10-31 Completed University of 00:00:00 [facility] TDAP 2015-10-31 Completed University of 00:00:00 [facility] TDAP 2015-10-31 Completed University of 00:00:00 [facility] TDAP 2015-10-31 Completed University of 00:00:00 [facility] TDAP 2015-10-31 Completed University of 00:00:00 [facility] TDAP 2015-10-31 Completed University of 00:00:00 [facility] TDAP 2015-10-31 Completed University of 00:00:00 [facility] TDAP 2015-10-31 Completed University of 00:00:00 [facility] TDAP 2015-10-31 Completed University of 00:00:00 [facility] TDAP 2015-10-31 Completed University of 00:00:00 [facility] TDAP 2015-10-31 Completed University of 00:00:00 [facility] TDAP 2015-10-31 Completed University of 00:00:00 [facility] TDAP 2015-10-31 Completed University of 00:00:00 [facility] TDAP 2015-10-31 Completed University of 00:00:00 [facility] TDAP 2015-10-31 Completed University of 00:00:00 [facility] TDAP 2015-10-31 Completed University of 00:00:00 [facility] TDAP 2015-10-31 Completed University of 00:00:00 [facility] TDAP 2015-10-31 Completed University of 00:00:00 [facility] TDAP 2015-10-31 Completed University of 00:00:00 [facility] TDAP 2015-10-31 Completed University of 00:00:00 [facility] TDAP 2015-10-31 Completed University of 00:00:00 [facility] TDAP 2015-10-31 Completed University of 00:00:00 [facility] TDAP 2015-10-31 Completed University of 00:00:00 [facility] TDAP 2015-10-31 Completed University of 00:00:00 [facility] TDAP 2015-10-31 Completed University of 00:00:00 [facility] TDAP 2015-10-31 Completed University of 00:00:00 [facility] TDAP 2015-10-31 Completed University of 00:00:00 [facility] TDAP 2015-10-31 Completed University of 00:00:00 [facility] TDAP 2015-10-31 Completed University of 00:00:00 [facility] TDAP 2015-10-31 Completed University of 00:00:00 [facility] TDAP 2015-10-31 Completed University of 00:00:00 [facility] TDAP 2015-10-31 Completed University of 00:00:00 [facility] TDAP 2015-10-31 Completed University of 00:00:00 [facility] TDAP 2015-10-31 Completed University of 00:00:00 [facility] TDAP 2015-10-31 Completed University of 00:00:00 [facility] TDAP 2015-10-31 Completed University of 00:00:00 [facility] TDAP 2015-10-31 Completed University of 00:00:00 [facility] TDAP 2015-10-31 Completed University of 00:00:00 [facility] TDAP 2015-10-31 Completed University of 00:00:00 [facility] TDAP 2015-10-31 Completed University of 00:00:00 [facility] TDAP 2015-10-31 Completed University of 00:00:00 [facility] TDAP 2015-10-31 Completed University of 00:00:00 [facility] TDAP 2015-10-31 Completed University of 00:00:00 [facility] TDAP 2015-10-31 Completed University of 00:00:00 [facility] TDAP 2015-10-31 Completed University of 00:00:00 [facility] TDAP 2015-10-31 Completed University of 00:00:00 [facility] TDAP 2015-10-31 Completed University of 00:00:00 [facility] TDAP 2015-10-31 Completed University of 00:00:00 [facility] TDAP 2015-10-31 Completed University of 00:00:00 [facility] TDAP 2015-10-31 Completed University of 00:00:00 [facility] TDAP 2015-10-31 Completed University of 00:00:00 [facility] TDAP 2015-10-31 Completed University of 00:00:00 [facility] TDAP 2015-10-31 Completed University of 00:00:00 [facility] TDAP 2015-10-31 Completed [facility] 00:00:00 [facility] TDAP 2015-10-31 Completed [facility] 00:00:00 [place] [facility] TDAP 2015-10-31 Completed University of 00:00:00 [facility] TDAP 2015-10-31 Completed University of 00:00:00 [facility] TDAP 2015-10-31 Completed University of 00:00:00 [facility] Pneumococcal 2014-04-01 Completed University o f Polysaccharide, 00:00:00 [place] [facility] PPSV23 (PNEUMOVAX) Branch Pneumococcal 2014-04-01 Completed University o f Polysaccharide, 00:00:00 [place] [facility] PPSV23 (PNEUMOVAX) Branch Pneumococcal 2014-04-01 Completed University o f Polysaccharide, 00:00:00 [place] [facility] PPSV23 (PNEUMOVAX) [facility] Pneumococcal 2014-04-01 [...] 17:29:00 97 mm[Hg] Univer sity of pressure [facility] Diastolic blood 2022-09-03 17:29:00 64 mm[Hg] Unive rsity of pressure [facility] Heart rate 2022-09-03 17:29:00 95 /min [facility] Body temperature 2022-09-03 17:29:00 37.17 Melissa Univ ersity [facility] Body height 2022-09-03 17:29:00 157.5 cm [facility] Body weight 2022-09-03 17:29:00 101.606 kg [facility] BMI 2022-09-03 17:29:00 40.97 kg/m2 [facility] Oxygen saturation in 2022-09-03 17:29:00 96 /min University of Arterial blood by [facility] Pulse oximetry Branch Systolic blood 2022-08-24 14:41:00 115 mm[Hg] Univer sity of [facility] Diastolic blood 2022-08-24 14:41:00 77 mm[Hg] Unive rsity of [facility] Heart rate 2022-08-24 14:41:00 105 /min [facility] Body temperature 2022-08-24 14:41:00 36.61 Melissa [facility] Body weight 2022-08-24 14:41:00 102.967 kg [facility] BMI 2022-08-24 14:41:00 41.52 kg/m2 [facility] Systolic blood 2022-07-27 13:03:00 112 mm[Hg] Univer sity of [facility] Diastolic blood 2022-07-27 13:03:00 75 mm[Hg] Unive rsity of [facility] Heart rate 2022-07-27 13:03:00 98 /min [facility] Body temperature 2022-07-27 13:03:00 36.83 Melissa Univ [facility] Body weight 2022-07-27 13:03:00 102.967 kg [facility] BMI 2022-07-27 13:03:00 41.52 kg/m2 [facility] Oxygen saturation in 2022-07-27 13:03:00 94 /min University of Arterial blood by [facility] cipriano Pulse oximetry Branch Systolic blood 2022-06-17 15:45:00 104 mm[Hg] Univer sity of [facility] Diastolic blood 2022-06-17 15:45:00 69 mm[Hg] Unive rsity of [facility] Heart rate 2022-06-17 15:45:00 97 /min [facility] Body height 2022-06-17 15:45:00 157.5 cm [facility] Body weight 2022-06-17 15:45:00 101.878 kg [facility] BMI 2022-06-17 15:45:00 41.08 kg/m2 [facility] Oxygen saturation in 2022-06-17 15:45:00 98 /min University of Arterial blood by [facility] Pulse oximetry Branch Systolic blood 2022-06-15 13:01:00 101 mm[Hg] Univer sity of [facility] Diastolic blood 2022-06-15 13:01:00 68 mm[Hg] Unive rsity of [facility] Heart rate 2022-06-15 13:01:00 74 /min [facility] Body temperature 2022-06-15 13:01:00 36.89 Melissa Univ [facility] Body weight 2022-06-15 13:01:00 102.967 kg [facility] BMI 2022-06-15 13:01:00 41.52 kg/m2 [facility] Systolic blood 2022-03-27 12:44:00 131 mm[Hg] Univer sity of [facility] Diastolic blood 2022-03-27 12:44:00 83 mm[Hg] Unive rsity of [facility] Heart rate 2022-03-27 12:44:00 102 /min [facility] Body temperature 2022-03-27 12:44:00 37.11 Melissa Univ [facility] Respiratory rate 2022-03-27 12:44:00 18 /min Univ [facility] Body height 2022-03-27 12:44:00 157.5 cm [facility] Body weight 2022-03-27 12:44:00 96.616 kg [facility] BMI 2022-03-27 12:44:00 38.96 kg/m2 [facility] [place] [facility] Oxygen saturation in 2022-03-27 12:44:00 98 /min University of Arterial blood by [facility] Pulse oximetry Branch Systolic blood 2022-03-02 15:40:00 113 mm[Hg] Univer sity of [facility] Diastolic blood 2022-03-02 15:40:00 72 mm[Hg] Unive rsity of [facility] Heart rate 2022-03-02 15:40:00 82 /min [facility] [place] [facility] Respiratory rate 2022-03-02 15:40:00 16 /min Univ [facility] Oxygen saturation in 2022-03-02 15:40:00 97 /min University of Arterial blood by [facility] Pulse oximetry Branch Body temperature 2022-03-02 15:23:00 36.28 Melissa Univ [facility] Body weight 2022-02-24 17:00:00 100.245 kg [facility] BMI 2022-02-24 17:00:00 40.42 kg/m2 [facility] Systolic blood 2022-03-02 15:25:00 98 mm[Hg] Univer sity of [facility] Diastolic blood 2022-03-02 15:25:00 55 mm[Hg] Unive rsity of [facility] Heart rate 2022-03-02 15:25:00 85 /min [facility] Respiratory rate 2022-03-02 15:25:00 18 /min Univ [facility] Oxygen saturation in 2022-03-02 15:25:00 100 /min University of Arterial blood by [facility] Pulse oximetry Branch Body temperature 2022-03-02 15:23:00 36.28 Melissa Univ [facility] Body weight 2022-02-24 17:00:00 100.245 kg [facility] BMI 2022-02-24 17:00:00 40.42 kg/m2 [facility] [place] [facility] Procedures Procedure Date / Time Performing Source Performed Clinician POCT HEMOGLOBIN A1C TEST 2022-08-24 Tray Jolly [facility] ity of 00:00:00 [facility] DME/SUPPLY JUSTIFICATION 2022-08-05 Doctor [facility] ity of 06:01:00 Unassigned, No [facility] SARS-COV-2 COVID-19 CHRISTELLE-SUCROSE 2022-07-27 Tray Jolly Dearing of VACCINE 12 YRS+, BIVALENT 0.3ML, 13:13:29 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) Br anch MEDICATION CORRESPONDENCE 2022-07-19 [facility] sit of 05:01:00 Unassigned, No [facility] DISABILITY/FMLA 2022-07-01 [facility] of 05:01:00 Unassigned, No [place] [facility] MR THORACIC SPINE WO CONTRAST 2022-06-30 Brunilda, Crystal Un iversity of 16:22:01 [facility] MR CERVICAL SPINE WO CONTRAST 2022-06-30 Brunilda, Crystal Un iversity of 16:20:35 [facility] CONSENT/REFUSAL FOR DIAGNOSIS AND 2022-06-30 [facility] 14:32:21 Unassigned, No [facility] CONSENT/REFUSAL FOR DIAGNOSIS AND 2022-06-30 [facility] 14:32:20 Unassigned, No [place] [facility] INSURANCE CORRESPONDENCE 2022-06-17 [facility] of 05:01:00 Unassigned, No [facility] POWER OF HUNTER GUIDE 2022-06-01 [facility] of 05:01:00 Unassigned, No [facility] POWER OF HUNTER GUIDE 2022-05-13 [facility] of 05:01:00 Unassigned, No [facility] DME/SUPPLY JUSTIFICATION 2022-05-06 Doctor [facility] ity of 05:01:00 Unassigned, No [place] [facility] EMG/NCV 2022-04-08 Brunilda [facility] of 14:43:00 [facility] CONSENT/REFUSAL FOR DIAGNOSIS AND 2022-03-27 [facility] 12:40:53 Unassigned, No [facility] PHYSICIAN ORDERS 2022-03-19 [facility] of 05:01:00 Unassigned, No [place] [facility] COLONOSCOPY (ENDO) 2022-03-02 Tray Jolly Dearing of 14:43:32 [facility] COLONOSCOPY (ENDO) 2022-03-02 Rik [facility] 14:43:32 [facility] 2022-03-02 [facility] of 14:02:00 [facility] ESOPHAGOGASTRODUODENOSCOPY 2022-03-02 [facility] ers[facility] of 14:02:00 [facility] EGD (ENDO) 2022-03-02 Rik [facility] of 13:53:24 [facility] ([facility]) 2022-03-02 [facility] of 13:53:24 [facility] POCT GLUCOSE(AGE >30DAYS) 2022-03-02 [facility] ersity of 12:59:00 [facility] POCT GLUCOSE(AGE >30DAYS) 2022-03-02 [facility] ersity of 12:59:00 [facility] POCT GLUCOSE (AUTOMATED) 2022-03-02 [facility] sity of 12:58:00 [facility] POCT GLUCOSE (AUTOMATED) 2022-03-02 [facility] sity of 12:58:00 [facility] POCT TEST 2022-03-02 [facility] of 12:48:00 [facility] POCT TEST 2022-03-02 [facility] of 12:48:00 [facility] DAY SURGERY - ADC 2022-03-02 [facility] of 05:01:00 Unassigned, No [facility] DME/SUPPLY JUSTIFICATION 2022-01-04 Doctor [facility] ity of 05:01:00 Unassigned, No [facility] DME/SUPPLY JUSTIFICATION 2022-01-04 Doctor Univers ity of 05:01:00 Unassigned, No [facility] DISCLOSURE AND CONSENT, MEDICAL 2021-12-28 [facility] of AND SURGICAL PROCEDURES 05:01:00 Unassigned, No [facility] dical Name Branch DISCLOSURE AND CONSENT, MEDICAL 2021-12-28 [facility] AND SURGICAL PROCEDURES 05:01:00 Unassigned, No [place] [facility] Encounters Start End Encounter Admission Attending Care Care Encounter Source Date/Time Date/Time Type Type Clinicians Facility Department ID 2022-02-16 Outpatient R WILLI [facility] [id number] Univers 10:29:45 CECILE flores [facility] 2021-12-01 [facility] [id number] Univers 13:05:09 CECILE flores [facility] 2021-11-04 Outpatient [facility] [id number] Univers 15:43:22 CECILE itjay [facility] 2021-07-27 Emergency [facility] [id number] Univers 19:11:28 ity of [facility] 2021-07-27 Emergency [facility] [id number] Univers 10:12:30 ity of [facility] 2021-07-27 Emergency [facility] [id number] Univers 06:35:13 ity of [facility] 2021-07-27 Emergency [facility] [id number] Univers 04:01:19 ity of [facility] 2021-07-26 Emergency [facility] [id number] Univers 12:06:22 ity of [facility] 2021-07-26 Emergency [facility] [id number] Univers 11:43:46 ity [facility] 2023-02-22 2023-02-22 Outpatient Brock JOLLY [facility] [id number] Univers 09:15:00 09:15:00 TRAY flores [facility] 2022-10-04 2022-10-04 [facility] 1.2.840.114 [id number] Univers 00:00:00 00:00:00 [facility] 350.1.13.10 it y of [place] 4.2.7.2.686 Emanuel as JOLLY?BLEA [id number] [address] MEDICAL OFFICE BUILDING 2022-09-28 2022-09-28 Outpatient Brock JOLLY [facility] [id number] Univers 08:00:00 08:00:00 TRAY flores [facility] 2022-09-10 2022-09-10 [facility] 1.2.840.114 [id number] Univers 00:00:00 00:00:00 [facility] 350.1.13.10 it y of [place] 4.2.7.2.686 Emanuel as JOLLY?BLEA [id number] Mn dicroshan [address] OFFICE [facility] 2022-09-08 2022-09-08 Telephone [facility] 1.2.840.114 [id number] Univers 00:00:00 00:00:00 Tray HEALTH 350.1.13.10 it y of [place] [facility] 4.2.7.2.686 Emanuel as JOLLY?BLEA [id number] Mn dicroshan [address] OFFICE [facility] 2022-09-08 2022-09-08 Nurse Delilah OLGUIN 1.2.840.114 [id number] Univers 00:00:00 00:00:00 Triage dMelony 350.1.13.10 ity of [facility] 4.2.7.2.686 Emanuel as [id number] [address] 2022-09-06 2022-09-06 Susan [facility] 1.2.840.114 [id number] Univers 00:00:00 00:00:00 Wondiful A HEALTH 350.1.13.10 ity of [place] 4.2.7.2.686 Emanuel as JOLLY?BLEA [id number] [address] 2022-09-06 2022-09-06 Susan [facility] 1.2.855.855 [id number] Univers 00:00:00 00:00:00 Cecile JG 350.1.13.10 i ty of [place] [id number] Mn gabi [address] 2022-09-03 2022-09-03 Outpatient R MISTY [facility] [id number] Univers 11:30:00 11:48:06 BERRY ity of [facility] 2022-09-03 2022-09-03 Office Misty [facility] 1.2.840.114 [id number] Univers 11:30:00 11:48:06 Visit [facility] 350.1.13.10 it y of [place] 4.2.7.2.686 Emanuel as JOLLY?BLEA [id number] Mn dicroshan [address] OFFICE [facility] 2022-08-24 2022-08-24 Outpatient R RIK [facility] [id number] Univers 09:00:00 09:00:00 TRAY flores [facility] 2022-08-24 2022-08-24 Office [facility] 1.2.840.114 [id number] Univers 09:00:00 09:00:00 Visit Tray HEALTH 350.1.13.10 it y of [place] 4.2.7.2.686 Emanuel as JOLLY?BLEA [id number] [address] MEDICAL OFFICE [facility] 2022-08-24 2022-08-24 Outpatient R RIK [facility] [id number] Univers 09:00:00 08:53:13 TRAY flores [facility] 2022-08-24 2022-08-24 Reffranchesca PaulaUN[facility] 1.2.840.114 [id number] Univers 00:00:00 00:00:00 Wondiful A HEALTH 350.1.13.10 ity of [place] 4.2.7.2.686 Emanule as JOLLY?BLEA [id number] [address] OFFICE [facility] 2022-08-22 2022-08-22 Reffranchesca PaulaUN[facility] 1.2.840.114 [id number] Univers 00:00:00 00:00:00 Wondiful A HEALTH 350.1.13.10 ity of [place] 4.2.7.2.686 Emanuel as JOLLY?BLEA [id number] [address] MEDICAL OFFICE [facility] 2022-08-13 2022-08-13 Outpatient R MARY JANE [facility] [id number] Univers 14:00:00 14:00:00 MATEO mark [facility] 2022-08-06 2022-08-06 [facility] 1.2.840.114 [id number] Univers 00:00:00 00:00:00 Tray HEALTH 350.1.13.10 it y of [place] 4.2.7.2.686 Emanuel as JOLLY?BLEA [id number] [address] MEDICAL OFFICE BUILDING 2022-08-05 2022-08-05 Orders Doctor CLAU 1.2.840.114 [id number] Univers 00:00:00 00:00:00 Only Unassigned, GRAYSON 350.1.13.10 ity of [place] [facility] 4.2.7.2.686 Emanuel as [id number] [address] 2022-07-29 2022-07-29 [facility] 1.2.840.114 [id number] Univers 00:00:00 00:00:00 [facility] 350.1.13.10 it y of [place] [facility] 4.2.7.2.686 Emanuel as JOLLY?BLEA [id number] [address] OFFICE [facility] 2022-07-27 2022-07-27 Outpatient Brock JOLLY [facility] [id number] Univers 08:00:00 08:25:43 TRAY ity of [facility] 2022-07-27 2022-07-27 Office [facility] 1.2.840.114 [id number] Univers 08:00:00 08:25:43 Visit [facility] 350.1.13.10 it y of [place] [facility] 4.2.7.2.686 Emanuel as JOLLY?BLEA [id number] [address] OFFICE [facility] 2022-07-19 2022-07-19 Orders Doctor CLAU 1.2.840.114 [id number] Univers 00:00:00 00:00:00 Only Unassigned, GRAYSON 350.1.13.10 ity of [place] [facility] 4.2.7.2.686 Emanuel as [id number] [address] 2022-07-08 2022-07-08 [facility] 1.2.840.114 [id number] Univers 00:00:00 00:00:00 Tray [place] 350.1.13.10 i ty of [place] [id number] [address] 2022-07-07 2022-07-07 Outpatient R STELLA WORLEY [facility] [id number] Univers 00:00:00 00:00:00 STELLA WORLEY it y of [facility] 2022-07-01 2022-07-01 Orders Doctor CLAU 1.2.840.114 [id number] Univers 00:00:00 00:00:00 Only Unassigned, GRAYSON 350.1.13.10 ity of [place] [facility] 4.2.7.2.686 Emanuel as [id number] [address] 2022-06-30 2022-06-30 Outpatient R BRUNILDA STELLA [facility] [id number] Univers 09:34:33 23:59:00 STELLA WORLEY it y of [facility] 2022-06-30 2022-06-30 [facility] Stella Worley [facility] 1.2.840.114 [id number] Univers 09:34:33 23:59:00 Encounter [place] 350.1.13.10 ity of [facility] 4.2.7.2.[place] [id number] [address] 2022-06-30 2022-06-30 [facility] Stella Worley [facility] 1.2.840.114 [id number] Univers 09:34:16 23:59:00 Encounter [place] 350.1.13.10 ity of [facility] 4.2.7.2.686 [place] [id number] [address] 2022-06-30 2022-06-30 Orders Doctor CLAU 1.2.840.114 [id number] Univers 00:00:00 00:00:00 Only Unassigned, GRAYSON 350.1.13.10 ity of [place] [facility] 4.2.7.2.686 Emanuel as [id number] [address] 2022-06-30 2022-06-30 Telephone Stella Worley [facility] 1.2.840.114 [id number] Univers 00:00:00 00:00:00 HEALTH 350.1.13.10 it y of [place] 4.2.7.2.686 [place] [id number] [address] OFFICE BUILDING 2022-06-24 2022-06-24 Outpatient R BRUNILDA STELLA [facility] [id number] Univers 00:00:00 00:00:00 BRUNILDASTELLA it y of [facility] 2022-06-24 2022-06-24 Telephone Stella Worley [facility] 1.2.840.114 [id number] Univers 00:00:00 00:00:00 HEALTH 350.1.13.10 it y of [place].2.[place] [id number] [address] OFFICE BUILDING 2022-06-21 2022-06-21 Outpatient R JESICABRADFORD [facility] [id number] Univers 11:00:00 11:00:00 TRAY ity of [facility] 2022-06-21 2022-06-21 Telephone Rik [facility] 1.2.840.114 [id number] Univers 00:00:00 00:00:00 Tray HEALTH 350.1.13.10 it y of [place] 4.2.7.2.686 Emanuel as JOLLY?BLEA [id number] Mn samir[address] OFFICE BUILDING 2022-06-17 2022-06-17 Office BrunildaStella [facility] 1.2.840.114 [id number] Univers 11:00:00 11:30:00 Visit HEALTH 350.1.13.10 it y of [place].7.2.[place] [id number] [address] OFFICE BUILDING 2022-06-17 2022-06-17 Outpatient R BRUNILDA STELLA [facility] [id number] Univers 11:00:00 11:00:00 STELLA WORLEY it y of [facility] 2022-06-17 2022-06-17 Refill Brunilda Stella [facility] 1.2.840.114 [id number] Univers 00:00:00 00:00:00 HEALTH 350.1.13.10 it y of [place]2.[place] [id number] [address] OFFICE BUILDING 2022-06-17 2022-06-17 Orders Doctor OLGUIN 1.2.840.114 [id number] Univers 00:00:00 00:00:00 Only Unassigned, GRAYSON 350.1.13.10 ity of [place] [facility] 4.2.7.2.686 Emanuel as [id number] [address] 2022-06-16 2022-06-16 Telephone [facility] 1.2.840.114 [id number] Univers 00:00:00 00:00:00 [facility] 350.1.13.10 it y of [place] 4.2.7.2.686 Emanuel as JOLLY?BLEA [id number] [address] OFFICE [facility] 2022-06-15 2022-06-15 [facility] [id number] [facility] 08:00:00 08:25:29 TRAY ity [facility] 2022-06-15 2022-06-15 Office [facility] 1.2.840.114 [id number] Univers 08:00:00 08:25:29 Visit [facility] 350.1.13.10 it y of [place] 4.2.7.2.686 Emanuel as JOLLY?BLEA [id number] [address] OFFICE [facility] 2022-06-14 2022-06-14 Telephone [facility] 1.2.840.114 [id number] Univers 00:00:00 00:00:00 Cecile [place] 350.1.13.10 i ty of [place]2.7.2.[place] [id number] Mn samir[address] 2022-06-11 2022-06-11 Telephone [facility] 1.2.840.114 [id number] Univers 00:00:00 00:00:00 [facility] 350.1.13.10 it y of [place] 4.2.7.2.686 Emanuel as JOLLY?BLEA [id number] Mn dicroshan [address] OFFICE [facility] 2022-06-09 2022-06-09 Telephone [facility] 1.2.840.114 [id number] Univers 00:00:00 00:00:00 [facility] 350.1.13.10 it y of [place] 4.2.7.2.686 Emanuel as JOLLY?BLEA [id number] [address] OFFICE [facility] 2022-06-04 2022-06-04 Susan Worley Crystal [facility] 1.2.840.114 [id number] Univers 00:00:00 00:00:00 HEALTH 350.1.13.10 it y of [place]2.[place] [id number] [address] OFFICE [facility] 2022-06-04 2022-06-04 Telephone NurseRy [facility] 1.2.840.114 [id number] Univers 00:00:00 00:00:00 Db HEALTH 350.1.13.10 it y of [place] 4.2.7.2.686 Emanuel as JOLLY?BLEA [id number] Mn dicroshan KNEY 044 [facility] OFFICE [facility] 2022-06-04 2022-06-04 Refill Willi [facility] 1.2.691.916 [id number] Univers 00:00:00 00:00:00 Cecile [place] 350.1.13.10 i ty of [place].2.[place] [id number] Mn dicroshan [facility] [address] [facility] 2022-06-03 2022-06-03 Outpatient R BRUNILDA STELLA [facility] [id number] Univers 09:30:00 09:30:00 STELLA WORLEY it y of [facility] 2022-06-02 2022-06-02 Stella Barrow [facility] 1.2.840.114 [id number] Univers 00:00:00 00:00:00 HEALTH 350.1.13.10 it y of [place]2.[place] [id number] [address] OFFICE [facility] 2022-06-02 2022-06-02 Reffranchesca BrunildaStella [facility] 1.2.840.114 [id number] Univers 00:00:00 00:00:00 HEALTH 350.1.13.10 it y of [place]2.[place] [id number] [address] OFFICE [facility] 2022-06-02 2022-06-02 Telephone Willi [facility] 1.2.840.114 [id number] Univers 00:00:00 00:00:00 Cecile [place] 350.1.13.10 i ty [facility] 4.2.7.2.[place] [id number] Mn dical NAL 188 [facility] 2022-06-01 2022-06-01 Orders Doctor CLAU 1.2.840.114 [id number] Univers 00:00:00 00:00:00 Only Unassigned, GRAYSON 350.1.13.10 ity of [place] [facility] 4.2.7.2.686 Emanuel as [id number] [address] 2022-06-01 2022-06-01 Stella Barrow [facility] 1.2.840.114 [id number] Univers 00:00:00 00:00:00 HEALTH 350.1.13.10 [place] [phone] [facility] [address] [place] [address] OFFICE BUILDING 2022-06-01 2022-06-01 Susan Márquez [facility] 1.2.255.096 [id number] Univers 00:00:00 00:00:00 Cecile GREGORIO 350.1.13.10 i ty of [facility] 4[place]7.2.[place] [phone] Mn dicroshan BARNEY 188 [facility] 2022-05-28 2022-05-28 Susan Jolly [facility] 1.2.840.114 [id number] Univers 00:00:00 00:00:00 Tray HEALTH 350.1.13.10 it y of [place] 4.2.7.2.686 Emanuel as JOLLY?BLEA [id number] Mn gabi CHAIREZ [address] MEDICAL OFFICE BUILDING 2022-05-26 2022-05-26 Stella Barrow [facility] 1.2.840.114 [id number] Univers 00:00:00 00:00:00 HEALTH 350.1.13.10 it y of [place] [id number] [facility] [address] OFFICE BUILDING 2022-05-18 2022-05-18 Outpatient R SANJAY SÁNCHEZ [facility] [id number] Univers 09:00:00 09:00:00 ity of [facility] 2022-05-17 2022-05-17 Outpatient R RIK [facility] [id number] Univers 09:00:00 09:00:00 TRAY flores [facility] 2022-05-13 2022-05-13 Orders Doctor CLAU 1.2.840.114 [id number] Univers 00:00:00 00:00:00 Only Unassigned, GRAYOSN 350.1.13.10 ity of [place] [facility] 4.2.7.2.686 Emanuel as [phone] [address] 2022-05-13 2022-05-13 [facility] 1.2.840.114 [id number] Univers 00:00:00 00:00:00 [facility] 350.1.13.10 it y of [place] 4.2.7.2.686 Emanuel as JOLLY?BLEA [id number] Mn gabi [address] OFFICE BUILDING 2022-05-10 2022-05-10 Outpatient Brock JOLLY [facility] [id number] Univers 16:15:00 16:15:00 TRAY flores [facility] 2022-05-10 2022-05-10 Outpatient R STELLA WORLEY [facility] [id number] Univers 00:00:00 00:00:00 STELLA WORLEY [facility] 2022-05-06 2022-05-06 Telephone BrunildaStella [facility] 1.2.840.114 [id number] Univers 00:00:00 00:00:00 HEALTH 350.1.13.10 it y of [place].2.[place] [id number] [address] OFFICE BUILDING 2022-05-06 2022-05-06 Orders Doctor CLAU 1.2.840.114 [id number] Univers 00:00:00 00:00:00 Only Unassigned, GRAYSON 350.1.13.10 ity of [place] [facility] 4.2.7.2.686 Emanuel as [id number] [address] 2022-04-29 2022-04-29 Outpatient Brock AGUILAR [facility] [id number] Univers 14:00:00 14:00:00 CLAU flores [facility] 2022-04-14 2022-04-14 Outpatient R ROXANNEVIK [facility] [id number] Univers 09:00:00 09:00:00 ity of [facility] 2022-04-12 2022-04-12 [facility] 1.2.840.114 [id number] Univers 00:00:00 00:00:00 Ricardo GREGORIO 350.1.13.10 ity of [place] 4.2.7.2.686 [place] [id number] Mn dical NAL [address] BUILDING 2022-04-09 2022-04-09 Outpatient R MOMO [facility] [id number] Univers 11:00:00 11:00:00 [facility] 2022-04-08 2022-04-08 [facility] 1.2.840.114 [id number] Univers 08:30:00 23:59:00 Encounter [facility] 350.1.13.10 ity of [place].2.[place] [id number] [facility] [address] OFFICE BUILDING 2022-04-08 2022-04-08 Outpatient R AGUSTINA [facility] [id number] Univers 08:30:00 23:59:00 [facility] ity o f [facility] 2022-04-08 2022-04-08 Telephone Stella Worley [facility] 1.2.840.114 [id number] Univers 00:00:00 00:00:00 HEALTH 350.1.13.10 it y of [place] 4.2.7.2.686 [place] [id number] [place] [address] OFFICE BUILDING 2022-04-02 2022-04-02 Outpatient R MARY JANE [facility] [id number] Univers 09:30:00 09:30:00 MATEO ity [facility] 2022-03-31 2022-03-31 Telephone Rik [facility] 1.2.840.114 [id number] Univers 00:00:00 00:00:00 Tray HEALTH 350.1.13.10 it y of [place] 4.2.7.2.686 Emanuel as JOLLY?BLEA [id number] [address] MEDICAL OFFICE [facility] 2022-03-27 2022-03-27 Emergency [facility] 1.2.101.234 [id number] Univers 07:48:00 08:22:00 Destiny ANGLECHRISTELLE 350.1.13.10 i ty of [place].2.7.2.686 [place] [id number] [place] [address] [place] 2022-03-27 2022-03-27 Emergency X [facility] ERT [id number] Univers 07:48:00 08:22:00 DESTINY ity of [facility] 2022-03-27 2022-03-27 Orders Doctor CLAU 1.2.840.114 [id number] Univers 00:00:00 00:00:00 Only Unassigned, GRAYSON 350.1.13.10 ity of [place] [facility] 4.2.7.2.686 Emanuel as [id number] [address] 2022-03-24 2022-03-24 Telephone [facility] 1.2.840.114 [id number] Univers 00:00:00 00:00:00 [facility] HEALTH 350.1.13.10 it y of Edward [facility] 4.2.7.2.686 Emanuel as JOLLY?BLEA [id number] [address] OFFICE [facility] 2022-03-19 2022-03-19 Orders Doctor CLAU 1.2.840.114 [id number] Univers 00:00:00 00:00:00 Only Unassigned, GRAYSON 350.1.13.10 ity of [place] [facility]PITAL 4.2.7.2.686 Emanuel as [id number] [address] 2022-03-19 2022-03-19 Telephone [facility] 1.2.840.114 [id number] Univers 00:00:00 00:00:00 Tray HEALTH 350.1.13.10 it y of [place] 4.2.7.2.686 Emanuel as JOLLY?BLEA [id number] [address] MEDICAL OFFICE [facility] 2022-03-17 2022-03-17 Telephone [facility] 1.2.840.114 [id number] Univers 00:00:00 00:00:00 Tray HEALTH 350.1.13.10 it y of [place] 4.2.7.2.686 Emanuel as JOLLY?BLEA [id number] Mn gabi [address] MEDICAL OFFICE BUILDING 2022-03-12 2022-03-12 Stella Barrow [facility] 1.2.840.114 [id number] Univers 00:00:00 00:00:00 HEALTH 350.1.13.10 it y of [place]2.[place].2.[place] [id number] [facility] [address] [place] [address] OFFICE BUILDING 2022-03-08 2022-03-08 [facility] 1.2.840.114 [id number] Univers 00:00:00 00:00:00 Tray HEALTH 350.1.13.10 it y of [place] 4.2.7.2.686 Emanuel as JOLLY?BLEA [id number] [address] MEDICAL OFFICE [facility] 2022-03-02 2022-03-02 Outpatient R BRONSON [facility] MARCUS [id number] Univers 07:39:00 11:22:00 CECILE flores of [facility] 2022-03-02 2022-03-02 [facility] 1.2.840.114 [id number] Univers 07:39:00 11:22:00 Encounter Cecile GREGORIO 350.1.13.10 ity of [place] 4.2.7.2.686 [place] SURGICAL [id number] [facility] [address] 2022-03-02 2022-03-02 Surgery [facility] 1.2.798.749 [id number] Univers 09:11:00 10:25:00 Cecile GREGORIO 350.1.13.10 i ty of [place] 4.2.7.2.686 [place]GICAL [id number] [facility] [address] 2022-03-02 2022-03-02 Orders Doctor OLGUIN 1.2.840.114 [id number] Univers 00:00:00 00:00:00 Only Unassigned, GRAYSON 350.1.13.10 [facility] 4.2.7.2.686 Emanuel as [id number] [facility] [address] 2022-03-01 2022-03-01 Telephone Willi [facility] 1.2.840.114 [id number] Univers 00:00:00 00:00:00 Cecile JG 350.1.13.10 i ty [facility] 4.2.7.2.686 [place] [id number] Mn dical NAL 188 [facility] 2022-03-01 2022-03-01 Refill [facility] 1.2.840.114 [id number] Univers 00:00:00 00:00:00 Sendlarissa SimpsonGabeRashad JG 350.1.13.10 ity of [place] 4.2.7.2.686 [place] [id number] Mn dicma NAL 059 [facility] 2022-02-25 2022-02-25 Outpatient R RIK [facility] [id number] Univers 11:00:00 11:00:00 [facility] 2022-02-25 2022-02-25 Telephone Stella Worley [facility] 1.2.840.114 [id number] Univers 00:00:00 00:00:00 HEALTH 350.1.13.10 it y of [place] 4.2.7.2.686 [place] [id number] [facility] [address] OFFICE [facility] 2022-02-24 2022-02-24 [facility]phone [facility] 1.2.840.114 [id number] Univers 00:00:00 00:00:00 [facility] 350.1.13.10 it y of [place] 4.2.7.2.686 Emanuel as JOLLY?BLEA [id number] Mn dical KNEY 044 [facility] OFFICE BUILDING 2022-02-23 2022-02-23 Telephone [facility] 1.2.840.114 [id number] Univers 00:00:00 00:00:00 Tray HEALTH 350.1.13.10 it y of [place] 4.2.7.2.686 Emanuel as JOLLY?BLEA [id number] [facility] [address]ACO[address] MEDICAL OFFICE [facility] 2022-02-22 2022-02-22 Refill Nisa [facility] 1.2.840.114 [id number] Univers 00:00:00 00:00:00 Wonditanja Adams HEALTH 350.1.13.10 ity of [place] 4.2.7.2.686 Emanuel as JOLLY?BLEA [id number] [address] OFFICE [facility] 2022-02-18 2022-02-18 Patient [facility] 1.2.840.114 [id number] Univers 00:00:00 00:00:00 Secure Msg Tray THAPA 350.1.13.10 ity of [place] 4.2.7.2.686 Emanuel as JOLLY?BLEA [id number] [address] OFFICE [facility] 2022-02-18 2022-02-18 Telephone [facility] 1.2.840.114 [id number] Univers 00:00:00 00:00:00 Tray [place] 350.1.13.10 i ty of [place] 4.2.7.2.686 [place] [id number] [address] 2022-02-16 2022-02-16 Outpatient R RIK [facility] [id number] Univers 09:15:00 09:30:10 TRAY flores [facility] 2022-02-16 2022-02-16 [facility] 1.2.840.114 [id number] Univers 09:15:00 09:30:10 Visit [facility] 350.1.13.10 it y of [place] 4.2.7.2.686 Emanuel as JOLLY?BLEA [id number] [address] OFFICE [facility] 2022-02-16 2022-02-16 Outpatient R RIK [facility] [id number] Univers 09:15:00 09:15:00 TRAY flores [facility] 2022-02-16 2022-02-16 Telephone Vik Oliveira [facility] 1.2.840.114 [id number] Univers 00:00:00 00:00:00 HEALTH 350.1.13.10 it y of [place].2.7.2.686 [place] [id number] [address] OFFICE BUILDING 2022-02-15 2022-02-15 Outpatient R FLORENCE [facility] [id number] Univers 15:15:00 15:15:00 CAPRICE ity [facility] 2022-02-14 2022-02-14 Nurse CLAU Zarate 1.2.295.849 [id number] Univers 00:00:00 00:00:00 Triage Young GALICIA 350.1.13.10 it y of HOSPITAL 4.2.7.2.686 Emanuel as [id number] [address] 2022-02-12 2022-02-12 Telephone Rik [facility] 1.2.840.114 [id number] Univers 00:00:00 00:00:00 [facility] HEALTH 350.1.13.10 it y of [place] [facility] 4.2.7.2.686 Emanuel as JOLLY?BLEA [phone] Mn gabi CHAIREZ [address] [place] [address] OFFICE BUILDING 2022-02-11 2022-02-11 Telephone Stella Worley [facility] 1.2.840.114 [id number] Univers 00:00:00 00:00:00 HEALTH 350.1.13.10 it y of [place] 4.2.7.2.686 [place] [id number] [address] OFFICE BUILDING 2022-02-11 2022-02-11 Telephone Vik Oliveira [facility] 1.2.840.114 [id number] Univers 00:00:00 00:00:00 HEALTH 350.1.13.10 it y of [place] 4.2.7.2.686 [place] [id number] [address] OFFICE BUILDING 2022-02-10 2022-02-10 Outpatient NAV GIANG [facility] [id number] Univers 00:00:00 00:00:00 ity of [facility] 2022-02-10 2022-02-10 Outpatient NAV GIANG [facility] [id number] Univers 00:00:00 00:00:00 ity of [facility] 2022-02-10 2022-02-10 Orders Doctor CLAU 1.2.840.114 [id number] Univers 00:00:00 00:00:00 Only Unassigned, GRAYSON 350.1.13.10 ity of [place] [facility] 4.2.7.2.686 Emanuel as [id number] [address] 2022-02-08 2022-02-08 Outpatient R STELLA WORLEY [facility] [id number] Univers 10:00:00 11:34:48 STELLA WORLEY it y of [facility] 2022-02-08 2022-02-08 Office Stella Worley [facility] 1.2.840.114 [id number] Univers 10:00:00 11:34:48 Visit HEALTH 350.1.13.10 it y of [place] 4.2.7.2.686 [place] mit[place] [id number] [facility] [address] OFFICE [facility] 2022-02-01 2022-02-01 Telephone [facility] 1.2.300.355 [id number] Univers 00:00:00 00:00:00 Isac S HEALTH 350.1.13.10 it y of [place] 4.2.7.2.686 Emanuel as JOLLY?BLEA 510.6369482 Mn gabi CHAIREZ 198 [facility] OFFICE [facility] 2022-01-28 2022-01-28 Orders Doctor CLAU 1.2.840.114 [id number] Univers 00:00:00 00:00:00 Only Unassigned, GRAYSON 350.1.13.10 ity of [place] [facility]PITAL 4.2.7.2.686 Emanuel as [id number] [address] 2022-01-27 2022-01-27 Telephone [facility] 1.2.840.114 [id number] Univers 00:00:00 00:00:00 Tray HEALTH 350.1.13.10 it y of [place] 4.2.7.2.686 Emanuel as JOLLY?BLEA [id number] Mn gabi JACOBS 044 [facility] OFFICE [facility] 2022-01-27 2022-01-27 Telephone [facility] 1.2.840.114 [id number] Univers 00:00:00 00:00:00 [facility] 350.1.13.10 it y of [place] 4.2.7.2.686 Emanuel as JOLLY?BLEA [id number] [facility] [address] MEDICAL OFFICE BUILDING 2022-01-27 2022-01-27 Telephone OliveiraVik Tirso [facility] 1.2.840.114 [id number] Univers 00:00:00 00:00:00 HEALTH 350.1.13.10 it y of [place] 4.2.7.2.686 [place] [id number] [facility] [address] OFFICE BUILDING 2022-01-25 2022-01-25 Outpatient R [facility] [id number] Univers 10:20:49 23:59:00 MATEO flores of [facility] 2022-01-25 2022-01-25 [facility] 1.2.840.114 [id number] Univers 10:00:00 23:59:00 Encounter Mateo GREGORIO 350.1.13.10 ity of [place] 4.2.7.2.686 [place] [facility] [id number] [facility] [address] 2022-01-25 2022-01-25 Outpatient R [facility] [id number] Univers 00:00:00 00:00:00 MATEO flores [facility] 2022-01-25 2022-01-25 Orders Doctor OLGUIN 1.2.840.114 [id number] Univers 00:00:00 00:00:00 Only Unassigned, GRAYSON 350.1.13.10 ity of [place] [facility] 4.2.7.2.686 Emanuel as [id number] [address] 2022-01-22 2022-01-22 Telephone Rik [facility] 1.2.840.114 [id number] Univers 00:00:00 00:00:00 Tray HEALTH 350.1.13.10 it y of [place] 4.2.7.2.686 Emanuel as JOLLY?BLEA [id number] [address] OFFICE [facility] 2022-01-22 2022-01-22 Orders Doctor OLGUIN 1.2.840.114 [id number] Univers 00:00:00 00:00:00 Only Unassigned, GRAYSON 350.1.13.10 ity of [place] [facility] 4.2.7.2.686 Emanuel as [phone] [address] 2022-01-21 2022-01-21 [facility] 1.2.840.114 [id number] Univers 00:00:00 00:00:00 Wondiful A HEALTH 350.1.13.10 ity of [place] 4.2.7.2.686 Emanuel as JOLLY?BLEA [id number] [address] OFFICE [facility] 2022-01-20 2022-01-20 [facility] 1.2.840.114 [id number] 629 Univers 00:00:00 00:00:00 Wondiful A HEALTH 350.1.13.10 ity of [place] 4.2.7.2.686 Emanuel as JOLLY?BLEA [id number] [address] OFFICE [facility] 2022-01-19 2022-01-19 Telephone [facility] 1.2.840.114 [id number] Univers 00:00:00 00:00:00 Tray HEALTH 350.1.13.10 it y of [place] 4.2.7.2.686 Emanuel as JOLLY?BLEA 739.6872161 Mn dic[address] 2022-01-18 2022-01-18 Refill [facility] 1.2.840.114 [id number] Univers 00:00:00 00:00:00 Tray HEALTH 350.1.13.10 it y of [place] 4.2.7.2.686 Emanuel as JOLLY?BLEA [id number] Mn dic[address] OFFICE [facility] 2022-01-13 2022-01-13 Telephone [facility] 1.2.840.114 [id number] Univers 00:00:00 00:00:00 Arnoldo [place] 350.1.13.10 i ty of [place] 4.2.7.2.686 [place] [id number] [address] 2022-01-11 2022-01-11 Outpatient Brock BARR [facility] [id number] Univers 14:45:00 23:59:00 [facility] 2022-01-11 2022-01-11 Outpatient Brock [facility] [id number] Univers 14:45:00 23:59:00 [facility] 2022-01-11 2022-01-11 Office [facility] 1.2.840.114 [id number] Univers 13:45:00 14:00:00 Visit [facility] HEALTH 350.1.13.10 it y of [place] 4.2.7.2.686 Emanuel as JOLLY?BLEA [phone] Mn gabi CHAIREZ 198 [facility] 2022-01-11 2022-01-11 Outpatient Brock [facility] [id number] Univers 13:45:00 13:45:00 [facility] 2022-01-07 2022-01-07 Telephone [facility] 1.2.840.114 [id number] Univers 00:00:00 00:00:00 [facility] HEALTH 350.1.13.10 it y of [place] 4.2.7.2.686 Emanuel as JOLLY?BLEA [phone] Mn agbi CHAIREZ 044 [facility] 2022-01-06 2022-01-06 Telephone [facility] 1.2.840.114 [id number] Univers 00:00:00 00:00:00 Wondiful A HEALTH 350.1.13.10 ity of [place] 4.2.7.2.686 Emanuel as JOLLY?BLEA [phone] Mn gabi CHAIREZ 044 [facility] OFFICE [facility] 2022-01-05 2022-01-05 Telephone [facility] 12.840.114 [id number] Univers 00:00:00 00:00:00 Tray HEALTH 350.1.13.10 it y of [place] 4.2.7.2.686 Emanuel as JOLLY?BLEA [id number] Mn gabi CHAIREZ 044 [facility] OFFICE [facility] 2022-01-04 2022-01-04 Telephone [facility] 1.2.840.114 [id number] Univers 00:00:00 00:00:00 [facility] 350.1.13.10 it y of [place] 4.2.7.2.686 Emanuel as JOLLY?BLEA [phone] Mn gabi JACOBS[address] OFFICE [facility] 2021-12-31 2021-12-31 Telephone [facility] 1.2.840.114 [id number] Univers 00:00:00 00:00:00 Tray HEALTH 350.1.13.10 it y of [place] 4.2.7.2.686 Emanuel as JOLLY?BLEA [phone] Mn gabi CHAIREZ [address] [place] [address] 2021-12-31 2021-12-31 Telephone [facility] 1.2.840.114 [id number] Univers 00:00:00 00:00:00 [facility] 350.1.13.10 it y of [place] 4.2.7.2.686 Emanuel as JOLLY?BLEA [phone] Mn gabi JACO[address] 2021-12-30 2021-12-30 Patient [facility] 1.2.840.114 [id number] Univers 00:00:00 00:00:00 Outreach Genesis Shah [facility] 350.1.13.10 ity of [facility] 4.2.7.2.686 Emanuel as PROFESSIO [id number] [address] ONE 2021-12-28 2021-12-28 Outpatient R WILLI [facility] [id number] Univers 09:30:00 10:07:08 CECILE flores [facility] 2021-12-28 2021-12-28 Outpatient R WILLI [facility] [id number] Univers 09:30:00 10:07:08 CECILE flores [facility] 2021-12-28 2021-12-28 Office [facility] 1.2.317.905 [id number] [id number] Univers 09:30:00 10:07:08 Visit Cecile GREGORIO 350.1.13.10 i ty of [place] 4.2.7.2.686 [place] [id number] Mn gabi BARNEY 188 [facility] 2021-12-24 2021-12-24 Outpatient R [facility] [id number] Univers 14:00:00 14:00:00 ity of [facility] 2021-12-24 2021-12-24 Patient [facility] 1.2.840.114 [id number] Univers 00:00:00 00:00:00 Secure Msg [facility] 350.1.13.10 ity of [place] 4.2.7.2.686 Emanuel as JOLLY?BLEA [phone] Mn samirma ARLENE[address] OFFICE [facility] 2021-12-22 2021-12-22 Telephone [facility] 1.2.840.114 [id number] Univers 00:00:00 00:00:00 Cecile BYERSTON 350.1.13.10 i ty [facility] 4.2.7.2.686 [place] [id number] Mn gabi BARNEY [address] [place] [address] 2021-12-16 2021-12-16 Telephone [facility] 1.2.840.114 [id number] Univers 00:00:00 00:00:00 [facility] 350.1.13.10 it y of [place] 4.2.7.2.686 Emanuel as JOLLY?BLEA [phone] Mn gabi CHAIREZ [address] [place] [address] 2021-12-11 2021-12-11 Surgery [facility] 1.2.873.526 [id number] 9758 Univers 10:33:00 11:46:00 Cecile [place] 350.1.13.10 i ty of [place] 4.2.7.2.686 [place] SURGICAL [id number] [address] 2021-12-11 2021-12-11 Surgery [facility] 1.2.214.879 [id number] 9758 Univers 10:33:00 11:46:00 Cecile [place] 350.1.13.10 i ty of [place] 4.2.7.2.686 [place] SUR[place]ICAL [id number] [address] 2021-12-11 2021-12-11 Surgery [facility] 1.2.309.847 [id number] 9758 Univers 10:33:00 11:46:00 Cecile JG 350.1.13.10 i ty of [place] 4.2.7.2.686 [place] SUR[place]ICAL [id number] [facility] [address] 2021-12-11 2021-12-11 Outpatient [facility] [id number] Univers 08:40:00 11:25:00 [facility] 2021-12-11 2021-12-11 [facility] 1.2.840.114 [id number] Univers 08:40:00 11:25:00 Encounter Cecile JG 350.1.13.10 ity [facility] 4.2.7.2.686 [place] SUR[place]ICAL [phone] [facility] [address] [place] 2021-12-11 2021-12-11 [facility] [id number] Univers 08:40:00 11:25:00 [facility] 2021-12-11 2021-12-11 Outpatient R [facility] MARCUS [id number] Univers 08:40:00 11:25:00 [facility] 2021-12-11 2021-12-11 Orders Doctor CLAU 1.2.840.114 [id number] Univers 00:00:00 00:00:00 Only Unassigned, GRAYSON 350.1.13.10 ity of [place] [facility] 4.2.7.2.686 Emanuel as [phone] [address] 2021-12-09 2021-12-09 Telephone Nisa [facility] 1.2.840.114 [id number] Univers 00:00:00 00:00:00 Wondiful A HEALTH 350.1.13.10 ity of [place] 4.2.7.2.686 Emanuel as JOLLY?BLEA [phone] Mn gabi JACO[address] MEDICAL OFFICE BUILDING 2021-12-08 2021-12-08 Outpatient R [facility] [id number] Univers 13:00:00 13:00:00 ity of [facility] 2021-12-08 2021-12-08 Telephone [facility] 1.2.840.114 [id number] Univers 00:00:00 00:00:00 Tray HEALTH 350.1.13.10 it y of [place] 4.2.7.2.686 Emanuel as JOLLY?BLEA [phone] Mn gabi JACOBS[address] OFFICE [facility] 2021-12-08 2021-12-08 Telephone [facility] 1.2.840.114 [id number] Univers 00:00:00 00:00:00 Tray HEALTH 350.1.13.10 it y of [place] 4.2.7.2.686 Emanuel as JOLLY?BLEA [phone] [address] 2021-12-03 2021-12-03 [facility] [id number] Univers 13:30:00 13:30:00 [facility]-12[facility] 2021-12-03 [facility] 1.2.840.114 [id number] Univers 00:00:00 00:00:00 Cecile BYERSCHRISTELLE 350.1.13.10 i ty just[facility] 4[place]2.[place] [phone] Mn gabi BARNEY [address] [facility] 2021-12-03 2021-12-03 [facility] 1.2.840.114 [id number] Univers 00:00:00 00:00:00 Wondiful A HEALTH 350.1.13.10 ity [facility] 4.2.7.2.686 Emanuel as PROFESSIO [phone] [address] OFFICE [facility] 2021-12-01 2021-12-01 [facility] [id number] Univers 14:15:00 14:54:12 WONDIFUL ity o f [facility] 2021-12-01 2021-12-01 [facility] 1.2.840.114 [id number] Univers 14:15:00 14:54:12 Visit Wondiful A HEALTH 350.1.13.10 ity of [place] 4.2.7.2.686 Emanuel as JOLLY?BLEA [phone] Mn gabi CHAIREZ [address] [place] [address] MEDICAL OFFICE BUILDING 2021-12-01 2021-12-01 Outpatient R NISA [facility] [id number] Univers 14:15:00 14:54:12 WONDIFUL ity o f [facility] 2021-12-01 2021-12-01 Patient Scot [facility] 1.2.840.114 [id number] Univers 00:00:00 00:00:00 Outreach [facility] 350.1.13.10 i ty of [place] 4.2.7.2.686 Emanuel as JOLLY?BLEA [id number] Mn gabi CHAIREZ [address] [place] [address] MEDICAL OFFICE [facility] 2021-12-01 2021-12-01 Patient Scot [facility] 1.2.840.114 [id number] Univers 00:00:00 00:00:00 Outreach [facility] 350.1.13.10 i ty of [place] 4.2.7.2.686 Emanuel as JOLLY?BLEA [phone] Mn gabi JACOBS[address] MEDICAL OFFICE [facility] 2021-11-18 2021-11-18 Outpatient R NISA [facility] [id number] Univers 10:00:00 10:44:34 WONDIFUL ity o f [facility] 2021-11-18 2021-11-18 Outpatient R NISA [facility] [id number] Univers 10:00:00 10:44:34 WONDIFUL ity o f [facility] 2021-11-18 2021-11-18 Outpatient R NISA [facility] [id number] Univers 10:00:00 10:00:00 WONDIFUL ity o f [facility] 2021-11-18 2021-11-18 Outpatient R NISA [facility] [id number] Univers 10:00:00 10:00:00 WONDIFUL ity o f [facility] 2021-11-18 2021-11-18 Outpatient R NISA [facility] [id number] Univers 10:00:00 10:00:00 WONDIFUL ity o f [facility] 2021-11-16 2021-11-16 Outpatient R MÁRQUEZ, [facility] [id number] Univers 09:30:00 09:30:00 CECILE flores [facility] 2021-11-16 2021-11-16 Outpatient R WILLI [facility] [id number] Univers 09:30:00 09:30:00 CECILE flores [facility] 2021-11-16 2021-11-16 Outpatient R WILLI [facility] [id number] Univers 09:30:00 09:30:00 CECILE flores [facility] 2021-11-15 2021-11-15 Emergency [facility] [id number] Univers 09:06:00 12:49:00 DESTINY flores [facility] 2021-11-15 2021-11-15 Emergency [facility] 1.2.354.136 [id number] Univers 09:06:00 12:49:00 Destiny [place] 350.1.13.10 i ty of [place] 4.2.7.2.686 [place] [facility] [id number] [facility] [address] [place] 2021-11-15 2021-11-15 Emergency X [facility] ERT [id number] Univers 09:06:00 12:49:00 DESTINY flores [facility] 2021-11-10 2021-11-10 Telephone [facility] 1.2.840.114 [id number] Univers 00:00:00 00:00:00 Wondiful A HEALTH 350.1.13.10 ity of [place] 4.2.7.2.686 Emanuel as JOLLY?BLEA [id number] Mn gabi [address] MEDICAL OFFICE BUILDING 2021-11-05 2021-11-05 Orders Doctor CLAU 1.2.840.114 [id number] Univers 00:00:00 00:00:00 Only Unassigned, GRAYSON 350.1.13.10 ity of [place] [facility] 4.2.7.2.686 Emanuel as [id number] [facility] [address] [place] 2021-11-05 2021-11-05 [facility] 1.2.840.114 [id number] Univers 00:00:00 00:00:00 Wondiful A HEALTH 350.1.13.10 ity of [place] 4.2.7.2.686 Emanuel as JOLLY?BLEA [id number] Mn dicroshan KNEY [address] [place] MEDICAL OFFICE [facility] 2021-11-03 2021-11-03 Telephone Nisa [facility] 1.2.840.114 [id number] Univers 00:00:00 00:00:00 Wondiful A HEALTH 350.1.13.10 ity of [place] 4.2.7.2.686 Emanuel as JOLLY?BLEA [id number] Mn dicroshan JACOBSEY 044 [facility] OFFICE [facility] 2021-11-03 2021-11-03 Telephone [facility] 1.2.840.114 [id number] Univers 00:00:00 00:00:00 Wondiful A HEALTH 350.1.13.10 ity of [place] 4.2.7.2.686 Emanuel as JOLLY?BLEA [id number] Mn dicroshan JACOBSEY 044 [facility] OFFICE [facility] 2021-10-27 2021-10-27 Case aSnjay Sánchez 1.2.840.114 [id number] Univers 00:00:00 00:00:00 Management H 350.1.13.10 ity of [place] 4.2.7.2.686 Emanuel as [id number] [place] [address] [place] 2021-10-26 2021-10-26 Telephone Sanjay Sánchez 1.2.840.114 [id number] Univers 00:00:00 00:00:00 H 350.1.13.10 it y of [place] 4.2.7.2.686 Emanuel as [phone] [place] [address] [place] 2021-10-23 2021-10-23 Telephone Jaymie [facility] 1.2.470.461 [id number] Univers 00:00:00 00:00:00 Corry A [place] 350.1.13.10 ity of [place] 4.2.7.2.686 [place] [id number] Mn dicroshan [facility] 188 [facility] 2021-10-22 2021-10-22 [facility] [id number] Univers 14:45:00 14:45:00 ISAC jay [facility] 2021-10-22 2021-10-22 Outpatient Brock MOMO [facility] [id number] Univers 14:45:00 14:45:00 ISAC ity [facility] 2021-10-22 2021-10-22 Outpatient Brock MOMO [facility] [id number] Univers 14:45:00 14:45:00 ISAC jay [facility] 2021-10-22 2021-10-22 Outpatient Brock MOMO [facility] [id number] Univers 14:45:00 14:45:00 [facility] 2021-10-19 2021-10-19 Telephone [facility] 1.2.840.114 [id number] Univers 00:00:00 00:00:00 Wondiful A HEALTH 350.1.13.10 ity of [place] 4.2.7.2.686 Emanuel as JOLLY?BLEA [phone] Mn gabi JACOBS[address] MEDICAL OFFICE [facility] 2021-10-13 2021-10-13 Outpatient [facility] [id number] Univers 10:30:00 10:41:12 CORRY [facility] 2021-10-13 2021-10-13 Office [facility] 1.2.840.114 [id number] Univers 10:30:00 10:41:12 Visit Corry Adams [place] 350.1.13.10 ity [facility] 4.2.7.2.686 [place] ESSIHSAN [phone] Mn gabi BARNEY [address] [facility] 2021-10-13 2021-10-13 Outpatient R [facility] [id number] Univers 10:30:00 10:41:12 CORRY flores [facility] 2021-09-29 2021-09-29 Outpatient R FLORENCE [facility] [id number] Univers 16:14:01 23:59:00 CAPRICE flores [facility] 2021-09-29 2021-09-29 Outpatient R FLORENCE [facility] [id number] Univers 16:14:01 23:59:00 CAPRICE [facility] 2021-09-29 2021-09-29 Hospital [facility] 1.2.840.114 [id number] Univers 16:14:01 23:59:00 Encounter Caprice THAPA 350.1.13.10 ity of [place] 4.2.7.2.686 Emanuel as JOLLY?BLEA [id number] Me dical CONTRERAS 809 [facility] OFFICE [facility] 2021-09-29 2021-09-29 Outpatient R [facility] [id number] Univers 16:14:01 23:59:00 CAPRICE itjay [facility] 2021-09-29 2021-09-29 Office [facility] 1.2.840.114 [id number] Univers 16:00:00 16:58:02 Visit [facility] 350.1.13.[address] [facility] 4.2.7.2.686 Emanuel as JOLLY?BLEA [phone] Me dicroshan CHAIREZ 198 [facility] OFFICE [facility] 2021-09-29 2021-09-29 Outpatient Brock BARR [facility] [id number] Univers 16:00:00 16:58:02 ISAC itjay [facility] 2021-09-29 2021-09-29 Outpatient Brock BARR [facility] [id number] Univers 16:00:00 16:58:02 ISAC [facility] 2021-09-29 2021-09-29 Outpatient Brock BARR [facility] [id number] Univers 16:00:00 16:00:00 [facility] 2021-09-24 2021-09-24 Outpatient Brock BARR [facility] [id number] Univers 14:00:00 14:00:00 [facility] 2021-09-19 2021-09-19 Nurse Caprice Ozuna 1.2.840.114 [id number] Univers 00:00:00 00:00:00 Triage GRAYSON 350.1.13.10 it y of [facility] 4.2.7.2.686 Emanuel as [id number] [address] 2021-09-09 2021-09-09 Prep For Jaymie [facility] 1.2.840.114 [id number] Univers 00:00:00 00:00:00 Surgery Corry BYERSCHRISTELLE 350.1.13.10 ity of [place] 4.2.7.2.686 [place] [phone] Mn dical NAL 204 [facility] 2021-09-08 2021-09-08 [facility] 1.2.932.913 [id number] Univers 14:30:00 16:16:36 Visit Cecile JG 350.1.13.10 i ty of [place] 4.2.7.2.686 [place] [id number] Mn dical NAL 188 [facility] 2021-09-08 2021-09-08 Out[facility] [id number] Univers 14:30:00 16:16:36 CECILE flores [facility] 2021-09-08 2021-09-08 Outpatient [facility] [id number] Univers 14:30:00 16:16:36 [facility] 2021-09-08 2021-09-08 Outpatient [facility] [id number] Univers 14:30:00 14:30:00 CECILE flores [facility] 2021-09-08 2021-09-08 Orders Doctor CLAU 1.2.840.114 [id number] Univers 00:00:00 00:00:00 Only Unassigned, GRAYSON 350.1.13.10 ity of [place] [facility] 4.2.7.2.686 Emanuel as [phone] [address] 2021-09-02 2021-09-02 Outpatient R FLORENCE [facility] [id number] Univers 14:00:00 14:00:00 CAPRICE flores [facility] 2021-08-31 2021-08-31 Orders Doctor OLGUIN 1.2.840.114 [id number] Univers 00:00:00 00:00:00 Only Unassigned, GRAYSON 350.1.13.10 ity of [place] [facility] 4.2.7.2.686 Emanuel as [id number] [address] 2021-08-26 2021-08-26 Outpatient Brock [facility] [id number] Univers 10:45:00 11:58:51 WONDIFUL ity o f [facility] 2021-08-26 2021-08-26 Outpatient R NISA [facility] [id number] Univers 10:45:00 11:58:51 WONDIFUL ity o f [facility] 2021-08-26 2021-08-26 Outpatient R NISA [facility] [id number] Univers 10:45:00 11:58:51 WONDIFUL ity o f [facility] 2021-08-26 2021-08-26 Outpatient R NISA [facility] [id number] Univers 10:45:00 11:58:51 WONDIFUL ity o f [facility] 2021-08-26 2021-08-26 Office [facility] 1.2.840.114 [id number] Univers 10:34:47 11:58:51 Visit Wondiful A HEALTH 350.1.13.10 ity of [place] 4.2.7.2.686 Emanuel as JOLLY?BLEA [id number] [address] MEDICAL OFFICE [facility] 2021-08-17 2021-08-17 [facility] 1.2.840.114 [id number] Univers 00:00:00 00:00:00 Management Wondiful A HEALTH 350.1.13.10 ity of [place] 4.2.7.2.686 Emanuel as JOLLY?BLEA [id number] [address] MEDICAL OFFICE [facility] 2021-08-13 2021-08-13 Outpatient R NISA, [facility] [id number] Univers 07:58:20 23:59:00 WONDIFUL ity o f [facility] 2021-08-13 2021-08-13 Hospital [facility] 1.2.960.280 [id number] Univers 07:58:20 23:59:00 Encounter Wondiful A [place] 350.1.13.10 ity of [place] 4.2.7.2.686 [place] [id number] [facility] [address] [place] [address] 2021-08-13 2021-08-13 [facility] [id number] Univers 07:58:20 23:59:00 WONDIFUL ity o f [facility] 2021-08-13 2021-08-13 Office Auditor Kevin Soni [facility] Main [facility] 1.2.8 40.114 [id number] Univers 07:57:57 08:12:57 Visit Bunny Paulaoscarful A [place] 350.1.13. 10 ity of [place] 4.2.7.2.686 [place] [id number] Mn dical [facility] [address] BUILDING 2021-08-13 2021-08-13 Outpatient R NISA [facility] [id number] Univers 00:00:00 00:00:00 WONDIFUL ity o f [facility] 2021-08-04 2021-08-04 Outpatient R NISA [facility] [id number] Univers 15:30:00 15:42:52 WONDIFUL ity o f [facility] 2021-08-04 2021-08-04 Outpatient R NISA [facility] [id number] Univers 15:30:00 15:42:52 WONDIFUL ity o f [facility] 2021-08-04 2021-08-04 Outpatient R NISA [facility] [id number] Univers 15:30:00 15:42:52 WONDIFUL ity o f [facility] 2021-08-04 2021-08-04 Outpatient R NISA [facility] [id number] Univers 15:30:00 15:42:52 WONDIFUL ity o f [facility] 2021-08-04 2021-08-04 Outpatient R NISA [facility] [id number] Univers 15:30:00 15:42:52 WONDIFUL ity o [facility] 2021-08-04 2021-08-04 Office [facility] 1.2.840.114 [id number] Univers 14:30:05 15:42:52 Visit Wondiful A HEALTH 350.1.13.10 ity of [place] 4.2.7.2.686 Emanuel as JOLLY?BLEA [phone] Mn dical EY [address] [place] MEDICAL OFFICE BUILDING 2021-08-04 2021-08-04 [facility] [id number] Univers 15:30:00 15:30:00 WONDIFUL ity o [facility] 2021-08-03 2021-08-03 Pre Visit CLAU Edmondson 1.2.840.114 [id number] Univers 00:00:00 00:00:00 Outreach Jorge Fleming [place] 350.1.13.10 i [facility] 4.2.7.2.686 Emanuel as [id number] [place] [address] [place] 2021-07-15 2021-07-15 Outpatient [facility] [id number] Univers 14:20:00 14:20:00 SHORTY ity o [facility] 2021-07-15 2021-07-15 [facility] [id number] Univers 14:20:00 14:20:00 SHORTY mark o [facility] 2021-07-15 2021-07-15 Outpatient Brock [facility] [id number] Univers 14:20:00 14:20:00 SHORTY ity [facility] 2021-07-15 2021-07-15 Out[facility] [id number] Univers 14:20:00 14:20:00 SHORTY alany o [facility] 2021-07-14 2021-07-14 [facility] 1.2.840.114 [id number] Univers 00:00:00 00:00:00 Wondiful A Health 350.1.13.10 ity of [place] 4.2.7.2.686 Emanuel as Professio [phone] [facility] [address] Office Building One 2021-07-10 2021-07-10 Outpatient Jessica_S ROBYN [facility] [id number] Devoted 05:13:00 05:13:00 1015 Medica l Group 2021-07-02 2021-07-02 Susan [facility] 1.2.840.114 [id number] Univers 00:00:00 00:00:00 Wondiful A Health 350.1.13.10 ity of [place] 4.2.7.2.686 Emanuel as Professio [phone] Mn dical nal [address] Office Building One 2021-06-15 2021-06-15 Orders Doctor CLAU 1.2.840.114 [id number] Univers 00:00:00 00:00:00 Only Unassigned, GRAYSON 350.1.13.10 ity of [place] [facility] 4.2.7.2.686 Emanuel as [phone] [facility] [address] 2021-06-08 2021-06-08 Patient Grupo Garcia 1.2.840.114 [id number] Univers 00:00:00 00:00:00 Outreach Emily J Chavarria 350.1.13.10 ity of [place] 4.2.7.2.686 [place] [id number] [facility] [address] [place] 2021-06-08 2021-06-08 Refill Vik Oliveira [facility] 1.2.840.114 [id number] Univers 00:00:00 00:00:00 Health 350.1.13.10 it y of [place] 4.2.7.2.686 [place] [phone] [place] [address] [place] Office Building 2021-05-25 2021-05-25 Emergency X DREVER, [facility] ERT [id number] Univers 18:22:00 20:23:00 [facility] 2021-05-25 2021-05-25 Emergency X DREVER, [facility] ERT [id number] Univers 18:22:00 20:23:00 [facility] 2021-05-25 2021-05-25 Emergency X DREVER, [facility] ERT [id number] Univers 18:22:00 20:23:00 [facility] 2021-05-25 2021-05-25 Emergency X DREVER, [facility] ERT [id number] Univers 18:22:00 20:23:00 [facility] 2021-05-25 2021-05-25 Emergency X DREVER, [facility] ERT [id number] Univers 18:22:00 20:23:00 [facility] 2021-05-25 2021-05-25 Emergency Drever, [facility] 1.2.709.756 [id number] Univers 18:22:00 20:23:00 Laureen Truong [place] 350.1.13.10 ity [facility] 4.2.7.2.686 [place] [id number] [place] 6[address] [place] 2021-05-21 2021-05-21 Outpatient LAILA GOODWIN [facility] [id number] Univers 09:30:00 09:30:00 LAILA ORELLANA i [facility] 2021-05-19 2021-05-19 Refill [facility] 1.2.840.114 [id number] Univers 00:00:00 00:00:00 [facility] 350.1.13.10 ity [facility] 4.2.7.2.686 [facility] [id number] Mn dical [address] Office [facility] One 2021-05-14 2021-05-14 Outpatient SANJAY DIAZ [facility] [id number] Univers 09:00:00 [facility] 2021-05-09 2021-05-09 Outpatient DMG DMG [id number] Devoted 11:00:00 11:00:00 0814 Medica l Group 2021-05-08 2021-05-08 Outpatient Brock HENRIQUEZ [facility] [id number] Univers 07:37:21 23:59:00 [facility] 2021-05-08 2021-05-08 Outpatient Brock HENRIQUEZ [facility] [id number] Univers 07:37:21 23:59:00 [facility] 2021-05-08 2021-05-08 Outpatient Brock HENRIQUEZ [facility] [id number] Univers 07:37:21 23:59:00 [facility] 2021-05-08 2021-05-08 Outpatient Brock HENRIQUEZ [facility] [id number] Univers 07:37:21 23:59:00 [facility] 2021-05-08 2021-05-08 Outpatient Brock BARR [facility] [id number] Univers 08:15:00 08:15:00 ISAC jay [facility] 2021-05-07 2021-05-07 Outpatient DMG DMG [id number] Devoted 12:00:00 12:00:00 0812 Medica l Group 2021-04-27 2021-04-27 Refill [facility] 1.2.840.114 [id number] Univers 00:00:00 00:00:00 [facility] 350.1.13.10 it y of [place] 4.2.7.2.686 Emanuel as PROFESSIO [phone] Mn dical NAL [address] OFFICE BUILDING ONE 2021-04-21 2021-04-21 [facility] [id number] Univers 15:45:00 15:45:00 WONSATURNINO flores o [facility] 2021-04-07 2021-04-07 Outpatient R [facility] [id number] Univers 09:20:00 09:20:00 [address] [facility] 2021-04-02 2021-04-02 Outpatient R [facility] [id number] Univers 08:45:00 08:45:00 ISAC [facility] 2021-04-01 2021-04-01 Emergency X [facility] ERT [id number] Univers 13:00:00 15:36:00 DESTINY [facility] 2021-04-01 2021-04-01 Emergency X [facility] ERT [id number] Univers 13:00:00 15:36:00 DESTINY [facility] 2021-04-01 2021-04-01 Emergency X [facility] ERT [id number] Univers 13:00:00 15:36:00 DESTINY [facility] 2021-04-01 2021-04-01 Outpatient R [facility] [id number] Univers 08:45:00 08:45:00 [facility] 2021-03-28 2021-03-28 Outpatient R BELLA [facility] [id number] Univers 09:40:00 09:40:00 CHELA flores o f [facility] 2021-03-27 2021-03-27 Outpatient R MARY JANE [facility] [id number] Univers 09:30:00 09:30:00 MATEO jay [facility] 2021-03-26 2021-03-26 Outpatient Brock BARR, [facility] [id number] Univers 15:15:00 15:15:00 ISAC jay [facility] 2021-03-25 2021-03-25 Outpatient R JAYMIE, [facility] [id number] Univers 08:30:00 08:30:00 CORRY [facility] 2021-03-23 2021-03-23 Outpatient R STEFFANIE, [facility] [id number] Univers 08:00:00 08:00:00 EMERY phillipsy o f [facility] 2021-03-20 2021-03-20 Emergency X STEPHEN, K [facility] ERT [id number] Univers 19:09:00 19:47:00 ity [facility] 2021-03-20 2021-03-20 Emergency X STEPHEN, K [facility] ERT [id number] Univers 19:09:00 19:47:00 ity [facility] 2021-03-20 2021-03-20 Emergency X STEPHEN, K [facility] ERT [id number] Univers 19:09:00 19:47:00 ity [facility] 2021-03-18 2021-03-18 Outpatient R FLORENCE, [facility] NUT [id number] Univers 00:00:00 00:00:00 CAPRICE [facility] 2021-03-12 2021-03-12 Outpatient Brock [facility] [id number] Univers 08:30:00 08:30:00 ISAC [facility] 2021-03-11 2021-03-11 Outpatient Brock [facility] [id number] Univers 16:15:00 16:15:00 [facility] 2021-03-10 2021-03-10 [facility] 1.2.840.114 [id number] Univers 00:00:00 00:00:00 [facility] 350.1.13.10 it y of [place] 4.2.7.2.686 [facility] [phone] [place] [id number] OFFICE BUILDING 2021-02-25 2021-02-25 Outpatient R MOMO [facility] [id number] Univers 14:30:00 14:30:00 ISAC jay [facility] 2021-02-25 2021-02-25 Telephone [facility] 1.2.913.762 [id number] 00:00:00 00:00:00 Sendil Kaley Gregorio 350.1.13.10 [place] 4.2.7.2.686 [facility] [id number] [facility] 059 Building 2021-02-24 2021-02-24 Outpatient R NISA [facility] [id number] Univers 11:00:00 11:00:00 WONDIFUL ity o f [facility] 2021-02-19 2021-02-19 Outpatient R FLORENCE [facility] [id number] Univers 10:03:49 23:59:[facility] 2021-02-19 2021-02-19 Outpatient R FLORENCE [facility] [id number] Univers 00:00:00 00:00:00 CAPRICE [facility] 2021-02-17 2021-02-17 Outpatient R [facility] [id number] Univers 17:40:00 17:40:[facility]-02-17 2021-02-17 Outpatient Brock TENORIO [facility] [id number] Univers 17:40:00 17:17:33 [facility] 2021-02-17 2021-02-17 Outpatient R JONA [facility] [id number] Univers 17:40:00 17:17:33 [facility] 2021-02-17 2021-02-17 Outpatient R JONA [facility] [id number] Univers 17:40:00 17:17:33 ROGE [facility] 2021-02-10 2021-02-10 Outpatient R ATUL [facility] [id number] Univers 09:00:00 09:00:00 SENDIL [facility] 2021-02-09 2021-02-09 Outpatient Brock BARR [facility] [id number] Univers 14:45:00 14:45:00 [facility] 2021-02-09 2021-02-09 Outpatient R MOMO [facility] [id number] Univers 14:45:00 14:45:00 [facility] 2021-02-04 2021-02-04 Outpatient R JOAQUIMDIEUDONNE [facility] [facility] [id number] Univers 10:30:00 10:30:00 S[facility] [place] [place] [facility] 2021-02-03 2021-02-03 Outpatient R NISA, [facility] [id number] Univers 16:30:00 16:30:00 WONDIFUL ity o [facility] 2021-01-27 2021-01-27 Outpatient R NAV ANTONIO [facility] [id number] Univers 15:00:00 15:00:00 [facility] 2021-01-21 2021-01-21 Outpatient R ATUL, [facility] [id number] Univers 11:00:00 11:00:00 SENDIL [facility] 2021-01-20 2021-01-20 Outpatient R SANJAY SÁNCHEZ [facility] [id number] Univers 11:00:00 11:00:00 [facility] 2021-01-14 2021-01-14 Outpatient R RIK, [facility] [id number] Univers 10:45:00 10:45:00 TRAY [facility] 2021-01-08 2021-01-08 Outpatient R MOMO [facility] [id number] Univers 08:45:00 08:45:00 [facility] 2021-01-06 2021-01-06 Outpatient R AIMEE [facility] [id number] Univers 11:00:00 11:00:00 SHORTY ity o [facility] 2021-01-01 2021-01-01 Outpatient R NISA [facility] [id number] Univers 15:00:00 15:00:00 WONDIFUL ity o f [facility] 2021-01-01 2021-01-01 Outpatient R NISA, [facility] [id number] Univers 15:00:00 15:00:00 WONDIFUL ity o f [facility] 2021-01-01 2021-01-01 Outpatient Brock PAULA [facility] [id number] Univers 15:00:00 15:00:00 WONDIFUL ity o f [facility] 2021-01-01 2021-01-01 Outpatient Brock PAULA [facility] [id number] Univers 15:00:00 15:00:00 WONDIFUL ity o f [facility] 2020-12-13 2020-12-13 Outpatient [facility] [id number] Univers 08:25:00 08:25:00 ity [facility] 2020-12-13 2020-12-13 Outpatient Brock LINDO [facility] [id number] Univers 08:25:00 08:25:00 TAMMY ity [facility] 2020-12-13 2020-12-13 Outpatient Brock LINDO [facility] [id number] Univers 08:25:00 08:25:00 TAMMY ity [facility] 2020-12-13 2020-12-13 Outpatient R BELGICA [facility] [id number] Univers 08:25:00 08:25:[facility] 2020-12-02 Outpatient R JAKE, [facility] [id number] Univers 09:00:00 09:00:00 LIANA ity [facility] 2020-12-02 2020-12-02 Outpatient R JAKE [facility] [id number] Univers 09:00:00 09:00:00 LIANA ity [facility] 2020-12-02 2020-12-02 Outpatient R JAKE, [facility] [id number] Univers 09:00:00 09:00:00 LIANA ity [facility] 2020-12-02 2020-12-02 Outpatient R JAKE [facility] [id number] Univers 09:00:00 09:00:00 LIANA ity [facility] 2020-11-22 2020-11-22 Outpatient R BELGICA [facility] [id number] Univers 09:40:00 09:40:00 TAMMY jay [facility] 2020-11-22 2020-11-22 Outpatient R BELGICA, [facility] [id number] Univers 09:40:00 09:40:00 TAMMY y [facility] 2020-11-22 2020-11-22 Outpatient R BELGICA, [facility] [id number] Univers 09:40:00 09:40:00 TAMMY [facility] 2020-11-21 2020-11-21 Outpatient R DONOVAN, [facility] [id number] Univers 14:00:00 14:00:00 BOOGIEBrock [facility] 2020-11-20 2020-11-20 Outpatient LAILA GOODWIN [facility] [id number] Univers 15:00:00 15:00:00 LAILA ORELLANA [facility] 2020-11-09 2020-11-09 Outpatient R OSMAR [facility] [id number] Univers 08:20:00 08:20:00 RD [facility] 2020-11-09 2020-11-09 Outpatient R OSMAR [facility] [id number] Univers 08:20:00 08:20:00 [facility] 2020-11-09 2020-11-09 Outpatient R OSMAR [facility] [id number] Univers 08:20:00 08:20:00 [facility] 2020-11-07 2020-11-07 Outpatient R VIK OLIVEIRA [facility] [id number] Univers 11:30:00 11:30:00 ity [facility] 2020-11-06 2020-11-06 Outpatient R NISA [facility] [id number] Univers 08:15:00 08:15:00 WONDIFUL itjay o f [facility] 2020-10-16 2020-10-16 Outpatient R OSMAR [facility] [id number] Univers 18:00:00 18:00:00 RD [facility] 2020-10-02 2020-10-02 Outpatient Brock BARR [facility] [id number] Univers 10:15:00 10:15:00 ISAC itjay [facility] 2020-09-22 2020-09-22 Outpatient R SELF, [facility] [id number] Univers 08:00:00 08:00:00 EMERY ity o f [facility] 2020-09-15 2020-09-15 Outpatient R NISA, [facility] [id number] Univers 00:00:00 00:00:00 WONDIFUL ity o f [facility] 2020-09-15 2020-09-15 Outpatient R NISA, [facility] [id number] Univers 00:00:00 00:00:00 WONDIFUL ity o f [facility] 2020-09-14 2020-09-14 Outpatient R GREEN, [facility] [id number] Univers 08:40:00 08:40:00 ROGE [facility] 2020 2020 Outpatient R NISA, [facility] [id number] Univers 00:00:00 00:00:00 WONDIFUL ity o f [facility] 2020-09-10 2020-09-10 Outpatient R DUCKWORTH, [facility] [id number] Univers 08:00:00 08:00:00 SHANTI ity [facility] 2020-09-08 2020-09-08 Outpatient R SELF, [facility] [id number] Univers 08:00:00 08:00:00 EMERY ity o f [facility] 2020-09-04 2020-09-04 Outpatient R NISA, [facility] [id number] Univers 16:00:00 16:00:00 WONDIFUL ity o f [facility] 2020-08-25 2020-08-25 Outpatient R NISA, [facility] [id number] Univers 11:00:00 11:13:03 WONDIFUL ity o f [facility] 2020-08-25 2020-08-25 Outpatient R NISA, [facility] [id number] Univers 10:30:00 10:30:00 WONDIFUL ity o f [facility] 2020-08-06 2020-08-06 Outpatient R PATRICIO, [facility] [id number] Univers 10:20:00 10:20:00 BALJIT ity [facility] 2020-08-06 2020-08-06 Outpatient R PATRICIO [facility] [id number] Univers 09:00:00 09:00:00 BALJIT flores of [facility] 2020-08-01 2020-08-01 Outpatient R DE LA TORRE, [facility] [id number] Univers 10:00:00 10:00:00 MATEO flores [facility] 2020-07-18 2020-07-18 Outpatient R LAILA ORELLANA [facility] [id number] Univers 11:00:00 11:00:00 LAILA ORELLANA i ty [facility] 2020-07-17 2020-07-17 Outpatient R ROXANNEVIK [facility] [id number] Univers 12:00:00 12:00:00 ity [facility] 2020-07-14 2020-07-14 Outpatient R NISA, [facility] [id number] Univers 10:45:00 10:45:00 WONDIFUL ity o f [facility] 2020-07-07 2020-07-07 Outpatient R MAKSIM [facility] [id number] Univers 08:30:00 08:30:00 AUBRIE flores [facility] 2020-06-27 2020-06-27 Outpatient R NISA [facility] [id number] Univers 15:15:00 15:15:00 WONDIFUL ity o f [facility] 2020-06-12 2020-06-12 Outpatient R MARBELLAKIMO [facility] [id number] Univers 15:45:00 15:45:00 AUBRIE [facility] 2020-06-05 2020-06-05 Outpatient R MOMO [facility] [id number] Univers 10:30:00 10:30:00 ISAC ity [facility] 2020-06-03 2020-06-03 Outpatient R ATUL [facility] [id number] Univers 09:00:00 09:00:00 SENDLARISSA itjay [facility] 2020-05-16 2020-05-16 Outpatient R ROXANNEVIK [facility] [id number] Univers 16:30:00 16:30:00 ity [facility] 2020-05-09 2020-05-09 Outpatient R [facility] [id number] Univers 10:20:00 10:20:00 ity [facility] 2020-04-21 2020-04-21 Outpatient R ARGENIS, [facility] [id number] Univers 11:40:00 11:40:00 [facility] 2020-04-18 2020-04-18 Outpatient R ATUL, [facility] [id number] Univers 09:30:00 09:30:00 SENDLARISSA ity [facility] 2020-04-15 2020-04-15 Outpatient R [facility] [id number] Univers 10:20:00 10:20:00 ity of [facility] 2020-04-04 2020-04-04 Outpatient R [facility] [id number] Univers 10:00:00 10:00:00 ity of [facility] 2020-04-01 2020-04-01 Outpatient R [facility] [id number] Univers 08:00:00 [facility]-03-20 2020-03-20 Outpatient R ROMARIO, [facility] [id number] Univers 10:00:00 10:00:00 FABRICIO [facility] 2020-03-10 2020-03-10 Outpatient R MIKAYLA, [facility] [id number] Univers 08:45:00 08:45:00 CL [facility] 2020-03-03 2020-03-03 Outpatient R MAKSIM, [facility] [id number] Univers 08:00:00 08:00:00 AUBRIE [facility] 2020-01-22 2020-01-22 [facility] [id number] Univers 15:45:00 [facility]:45[facility] 2020-01-22 [facility] [id number] Univers 10:45:00 10:45:00 [facility]-18 2020-01-18 Outpatient R SANJAY SÁNCHEZ [facility] [id number] Univers 11:30:00 11:30:00 ity [facility] 2020-01-11 2020-01-11 Outpatient R LAILA ORELLANA [facility] [id number] Univers 11:00:00 11:00:00 LAILA ORELLANA i [facility] 2020-01-10 2020-01-10 Outpatient R NISA [facility] [id number] Univers 10:00:00 10:00:00 WONDIFUL ity o f [facility] 2020-01-04 2020-01-04 Outpatient R VIK OLIVEIRA [facility] [id number] Univers 11:30:00 11:30:00 [facility] 2020-01-01 2020-01-01 Outpatient R [facility] [id number] Univers 08:00:00 08:00:00 [facility] 2019-12-21 2019-12-21 [facility] [id number] Univers 09:30:00 09:30:00 WONDIFUL ity o f [facility] 2019-12-06 2019-12-06 [facility] [id number] Univers 11:00:00 11:00:00 FABRICIO [facility] 2019-11-30 2019-11-30 [facility] [id number] Univers 10:30:00 10:30:00 [facility] 2019-11-29 2019-11-29 [facility]patient Brock [facility] [id number] Univers 08:15:00 08:15:00 [facility] 2019-11-23 2019-11-23 Outpatient R [facility] [id number] Univers 08:00:00 08:00:00 [facility] Results Test Description Test Time Test Comments Results Result Comments Source POCT HEMOGLOBIN A1C TEST 2022-08-24 14:54:00 Test Item Value Reference Range Interpretation Comme nts POCT HBA1C (test code = 4548-4) 4.6 % 4-6 [facility] HEMOGLOBIN A1C [id number] 14:54:00 Test Item Value Reference Range Interpretation Comments POCT HBA1C (test code = 4548-4) 4.6 % 4-6 [facility] GLUCOSE (AUTOMATED)2022-03-02 13:11:54 Test Item Value Reference Range Interpretation Comments POCT GLU (test code = 4561787490) 137 mg/dL 70-110 H Lab Interpretation (test code = Abnormal 11418-3) [facility] GLUCOSE (AUTOMATED)2022-03-02 13:11:54 Test Item Value Reference Range Interpretation Comments POCT GLU (test code = 3206056941) 137 mg/dL 70-110 H Lab Interpretation (test code = Abnormal 67202-3) [facility] [id number] 12:59:00 Test Item Value Reference Range Interpretation Comments POCT Glu (age>30days) (test code = 137 mg/dL 70-110 A 3342) Lab Interpretation (test code = Abnormal 69478-8) [facility] [id number] 12:59:00 Test Item Value Reference Range Interpretation Comments POCT Glu (age>30days) (test code = 137 mg/dL 70-110 A 3342) Lab Interpretation (test code = Abnormal 66392-1) [facility] [id number] 12:48:00 Test Item Value Reference Range Interpretation Comments POCT PREG (test code = 1605) Negative On board controls acceptable with Yes C Line (test code = 3574) POCT PREG LOT # (test code = 3575) [id number] POCT PREG TEST DATE (test 2023-06-25 code = 3576) [facility] [id number] 12:48:00 Test Item Value Reference Range Interpretation Comments POCT PREG (test code = 1605) Negative On board controls acceptable with Yes C Line (test code = 3574) POCT PREG LOT # (test code = 3575) [id number] POCT PREG TEST DATE (test 2023-06-25 code = 3576) [facility]
[2022-10-07 02:14] LABS: Albumin 3.9 g/dL (3.4-5.0); Bilirubin Total 0.7 mg/dL (0.2-1.0); Potassium 3.5 mmol/L (3.5-5.1); Protein, Total 6.7 g/dL (6.4-8.2)
--- NOTE | 2022-10-07 03:37 | EDPHYS ---
Physician Documentation [facility] Name: Linda Rahman Age: 47 yrs Sex: Female : 1975 Arrival Date: 10/07/2022 Time: 01:28 Bed 18 Private MD: ED Physician Tommy Orellana HPI: 10/07 01:52 This 47 yrs old Female presents to ER via EMS with complaints of abd pain. rn 01:52 The patient presents with abdominal pain right lower quadrant. Onset: The rn symptoms/episode began/occurred 1 week(s) ago. The symptoms do not radiate. Associated signs and symptoms: Pertinent negatives: anorexia, blood in stools, chest pain, constipation, diarrhea, dysuria, fever, hematuria, vaginal discharge, vomiting, vomiting blood. The symptoms are described as intermittent, sharp, stabbing. Modifying factors: The symptoms are alleviated by nothing, the symptoms are aggravated by touching the area. Severity of pain: At its worst the pain was moderate in the emergency department the pain is unchanged. The patient has experienced similar episodes in the past. The patient has been recently seen at the [facility] Emergency Department. 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 - Social history:: Smoking status: Patient denies any tobacco usage or history of. - Family history:: not pertinent. - Hospitalizations: : No recent hospitalization is reported. ROS: 01:52 Constitutional: Negative for fever, chills, and weight loss, Eyes: Negative for injury, rn pain, redness, and discharge, Neck: Negative for injury, pain, and swelling, Cardiovascular: Negative for chest pain, palpitations, and edema, Respiratory: Negative for shortness of breath, cough, wheezing, and pleuritic chest pain, Abdomen/GI: + RLQ abd pain Back: Negative for injury and pain, : Negative for injury, bleeding, discharge, and swelling, MS/Extremity: Negative for injury and deformity, Skin: Negative for injury, rash, and discoloration, Neuro: Negative for headache, weakness, numbness, tingling, and seizure. Exam: 01:52 Constitutional: This is a well developed, well nourished patient who is awake, alert, rn and in no acute distress. Head/Face: Normocephalic, atraumatic. Cardiovascular: Regular rate and rhythm. No pulse deficits. Respiratory: No increased work of breathing, no retractions or nasal flaring. Abdomen/GI: soft, + mild RLQ tenderness, no rebound, no masses Skin: Warm, dry MS/ Extremity: Pulses equal, no cyanosis. Neuro: Awake and alert, GCS 15 Vital Signs: 01:32 BP 119 / 76; Pulse 78; Resp 22 S; Pulse Ox 99% on R/A; Weight 102.97 kg (R); Height 5 aa9 ft. 2 in. (157.48 cm) (R); Pain 9/10; 01:47 BP 121 / 72; Pulse 82; Resp 20 S; Pulse Ox 99% on R/A; aa9 01:48 Temp 98.2(O); aa9 02:30 BP 123 / 71; Pulse 73; Resp 20; Pulse Ox 99% on R/A; aa9 03:52 BP 126 / 66; Pulse 72; Resp 20 S; Pulse Ox 99% on R/A; aa9 01:32 Body Mass Index 41.52 (102.97 kg, 157.48 cm) aa9 MDM: 01:28 Patient medically screened. rn 03:35 Differential diagnosis: appendicitis, diverticulitis, gastritis, gastroesophageal rn reflux disease, non-specific abd pain, pancreatitis, Peptic Ulcer Disease, Ureterolithiasis. Data reviewed: vital signs, nurses notes, lab test result(s), radiologic studies, CT scan, and as a result, I will discharge patient. Care significantly affected by the following chronic conditions: Diabetes, Hypertension, Obesity, Liver Disease, anxiety. Counseling: I had a detailed discussion with the patient and/or guardian regarding: the historical points, exam findings, and any diagnostic results supporting the discharge/admit diagnosis, lab results, radiology results, the need for outpatient follow up, to return to the emergency department if symptoms worsen or persist or if there are any questions or concerns that arise at home. Special discussion: Based on the patient's Hx, exam, and Dx evaluation, there is no indication for emergent surgery or inpatient Tx. It is understood by the patient/guardian that if the Sx's persist or worsen they need to return immediately for re-evaluation. I discussed with the patient/guardian in detail that at this point there is no indication for admission to the hospital. It is understood, however, that if the symptoms persist or worsen the patient needs to return immediately for re-evaluation. Based on the history and exam findings, there is no indication for further emergent testing or inpatient evaluation. 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 I discussed with the patient/guardian the need to see the primary care provider for further evaluation of the symptoms. ED course: No acute findings on CT abdomen or blood. No gross changes in blood tests when compared to those from last visit here this past week. Stable vitals. Will dc home with return precautions. . 10/07 01:29 Order name: CBC with Diff; Complete Time: 02:16 rn 10/07 01:29 Order name: CMP; Complete Time: 02:16 rn 10/07 01:29 Order name: Lipase; Complete Time: 02:16 rn 10/07 01:29 Order name: CT Abd/Pelvis - IV Contrast Only rn 10/07 01:29 Order name: IV Saline Lock; Complete Time: 47 rn 10/07 01:29 Order name: Labs collected and sent; Complete Time: :47 rn Administered Medications: : Drug: NS 0.9% 1000 ml Route: IV; Rate: 1 bolus; Site: right antecubital; aa9 03:10 Follow up: Response: No adverse reaction; IV Status: Completed infusion; IV Intake: aa9 1000ml Disposition Summary: 10/07/22 03:36 Discharge Ordered Location: Home rn Problem: an ongoing problem rn Symptoms: have improved rn Condition: Stable rn Diagnosis - Lower abdominal pain, unspecified rn Followup: rn - With: Private Physician - When: As needed - Reason: Recheck today's complaints, Re-evaluation by your physician Discharge Instructions: - Discharge Summary Sheet rn - Abdominal Pain, Adult rn - Pain Without a Known Cause rn Forms: - Medication Reconciliation Form rn - Thank You Letter rn - 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
--- NOTE | 2022-10-07 03:37 | ER ---
Nurse's Notes [facility] Name: Linda Rahman Age: 47 yrs Sex: Female : 1975 Arrival Date: 10/07/2022 Time: 01:28 Bed 18 Private MD: Diagnosis: Lower abdominal pain, unspecified Presentation: 10/07 01:32 Chief complaint: EMS states: called out for a female with lower abd pain and diarrhea. aa9 Coronavirus screen: Vaccine status: Patient reports receiving the 2nd dose of the covid vaccine. Ebola Screen: No symptoms or risks identified at this time. Initial Sepsis Screen: Does the patient meet any 2 criteria? No. Patient's initial sepsis screen is negative. Does the patient have a suspected source of infection? No. Patient's initial sepsis screen is negative. Risk Assessment: Do you want to hurt yourself or someone else? Patient reports no desire to harm self or others. Onset of symptoms was October 07, 2022. 01:32 Method Of Arrival: EMS: [facility] aa9 01:32 Acuity: HOLLEY 3 aa9 Triage Assessment: 01:34 General: Appears comfortable, obese, Behavior is calm, cooperative, appropriate for aa9 age. Pain: Complains of pain in right upper quadrant, right lower quadrant and left lower quadrant Pain currently is 9 out of 10 on a pain scale. Quality of pain is described as stabbing. Neuro: Level of Consciousness is awake, alert, obeys commands, Oriented to person, place, time, situation. Respiratory: Airway is patent Respiratory effort is even, unlabored. GI: Abdomen is obese, Reports bloating, diarrhea. : No signs and/or symptoms were reported regarding the genitourinary system. Derm: Skin is intact, is healthy with good turgor. 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 - Social history:: Smoking status: Patient denies any tobacco usage or history of. - Family history:: not pertinent. - Hospitalizations: : No recent hospitalization is reported. Screenin:35 Abuse screen: Denies threats or abuse. Denies injuries from another. Nutritional aa9 screening: Has had N/V for 3 or more days. Tuberculosis screening: No symptoms or risk factors identified. 03:53 [facility] ED Fall Risk Assessment (Adult) History of falling in the last 3 months, aa9 including since admission No falls in past 3 months (0 pts) Confusion or Disorientation No (0 pts) Intoxicated or Sedated No (0 pts) Impaired Gait No (0 pts) Mobility Assist Device Used No (0 pt) Altered Elimination No (0 pt) Score/Fall Risk Level 0 - 2 = Low Risk. Assessment: 02:24 Reassessment: Patient appears in no apparent distress at this time. Patient is alert, aa9 oriented x 3, equal unlabored respirations, skin warm/dry/pink. Respiratory: Airway is patent Respiratory effort is even, unlabored. Vital Signs: 01:32 BP 119 / 76; Pulse 78; Resp 22 S; Pulse Ox 99% on R/A; Weight 102.97 kg (R); Height 5 aa9 ft. 2 in. (157.48 cm) (R); Pain 9/10; 01:47 BP 121 / 72; Pulse 82; Resp 20 S; Pulse Ox 99% on R/A; aa9 01:48 Temp 98.2(O); aa9 02:30 BP 123 / 71; Pulse 73; Resp 20; Pulse Ox 99% on R/A; aa9 03:52 BP 126 / 66; Pulse 72; Resp 20 S; Pulse Ox 99% on R/A; aa9 01:32 Body Mass Index 41.52 (102.97 kg, 157.48 cm) aa9 ED Course: 01:28 Patient arrived in ED. rn 01:28 Tommy Orellana MD is Attending Physician. rn 01:33 Triage completed. aa9 01:35 Arm band placed on right wrist. aa9 01:35 Patient has correct armband on for positive identification. Placed in gown. Bed in low aa9 position. Call light in reach. Side rails up X2. 01:42 Inserted saline lock: 20 gauge in right antecubital area, using aseptic technique. aa9 Blood collected. 01:47 Lipase Sent. aa9 01:47 CMP Sent. aa9 01:47 CBC with Diff Sent. aa9 02:51 CT Abd/Pelvis - IV Contrast Only In Process Unspecified. EDMS 03:53 No provider procedures requiring assistance completed. IV discontinued, intact, aa9 bleeding controlled, No redness/swelling at site. Pressure dressing applied. Administered Medications: 01:47 Drug: NS 0.9% 1000 ml Route: IV; Rate: 1 bolus; Site: right antecubital; aa9 03:10 Follow up: Response: No adverse reaction; IV Status: Completed infusion; IV Intake: aa9 1000ml Medication: 03:53 VIS not applicable for this client. aa9 Intake: 03:10 IV: 1000ml; Total: 1000ml. aa9 Outcome: 03:36 Discharge ordered by . rn 03:53 Discharged to home ambulatory. aa9 03:53 Condition: stable 03:53 Discharge instructions given to patient, Instructed on discharge instructions, follow up and referral plans. Demonstrated understanding of instructions, follow-up care. 03:53 Patient left the ED. aa9 Signatures: Dispatcher [employer] EDMS Tommy Orellana MD MD rn Avalos, Aylin, RN RN aa9
[2022-10-07 04:20] VITALS: O2SAT 99
[2022-10-07 04:22] VITALS: TEMP 98.2
[2022-10-07 04:24] VITALS: BP 126/66
--- NOTE | 2022-10-07 16:48 | RAD REPORT ---
EXAM DESCRIPTION: CT - Abdomen Pelvis W Contrast - 10/07/2022 6:08 am CLINICAL HISTORY: The patient is 47 years old and is Female; RLQ abd pain TECHNIQUE: Axial computed tomography images of the abdomen and pelvis with intravenous contrast. S agittal and coronal reformatted images were created and reviewed. This CT exam was performed using one or more of the following dose reduction techniques: automated exposure control, adjustment of t he mA and/or kV according to patient size, and/or use of iterative reconstruction technique. COMPARISON: CT of the abdomen and pelvis September 08, 2022 FINDINGS: LUNG BASES: Dependent atelectasis within the right lower lobe is present. The lungs are otherwise clear. ABDOMEN: LIVER: The liver is enlarged and mildly fatty. GALLBLADDER AND BILE DUCTS: Surgical clips are present in the right upper quadrant, consistent w ith previous cholecystectomy. PANCREAS: No ductal dilation. No mass. SPLEEN: The spleen is enlarged. ADRENALS: Unremarkable. No mass. KIDNEYS AND URETERS: Unremarkable. The kidneys enhance symmetrically. No obstructing renal or ur eteral calculus is seen. No hydronephrosis or hydroureter. No perinephric fluid or stranding. STOMACH AND BOWEL: The stomach is distended with food contents. The small bowel is normal in cipriano iber. Stool is present throughout colon. There is no mucosal thickening or evidence of obstruction. PELVIS: APPENDIX: The appendix is normal in caliber without surrounding inflammation. BLADDER: The bladder is well distended. REPRODUCTIVE: Unremarkable as visualized. ABDOMEN and PELVIS: INTRAPERITONEAL SPACE: Unremarkable. No free air. No significant fluid collection. BONES/JOINTS: No acute fracture. SOFT TISSUES: The soft tissues are normal. VASCULATURE: Unremarkable. No abdominal aortic aneurysm. LYMPH NODES: Unremarkable. No enlarged lymph nodes. IMPRESSION: 1. Hepatosplenomegaly. 2. Normal appendix. No bowel obstruction. Electronically signed by: Liyah Ann MD 10/07/2022 3:31 AM HAT BRAIDER Due to temporary technical issues with the PACS/Fluency reporting system, reports are being signed by the in house radiologists without review as a courtesy to insure prompt reporting. The interpreting radiologist is fully responsible for the content of the report.
== END 2022-10-07 03:53 | disposition home or self-care (01) ==
LOC: ER 01:27
DX: R10.31 Right lower quadrant pain (principal); Z88.1 Allergy status to other antibiotic agents; Z88.5 Allergy status to narcotic agent; Z88.8 Allergy status to other drugs, medicaments and biological substances
CPT/HCPCS: 85025; 36415; 83690; 80053; 74177; 96360; 99284; Q9967; J7030

== ENCOUNTER 2022-10-15 20:21 | Emergency (ER) | payer OTHER ==
[2022-10-15] MEDS ORDERED: NA CHLORIDE 0.9% 1,000 ML ONE ×2 (21:00→22:29)
[2022-10-15] MEDS ORDERED: FAMOTIDINE 20 MG/2 ML VIAL IV ONE (21:00)
[2022-10-15] MEDS ORDERED: ONDANSETRON 4 MG/2 ML VIAL ONE (21:00)
[2022-10-15] MEDS ORDERED: MORPHINE 4 MG/ML SYR ONE (21:00)
--- OUTSIDE RECORDS SUMMARY | 2022-10-15 21:06 | XMS REPORT | Continuity of Care Document ---
:1975 Author Organization [facility] [place] [facility] t Address [address] [place] [address] Care Team Providers Name Role Phone TRAY JOLLY Primary Care Physician Unavailable CECILE MÁRQUEZ Attending Clinician Unavailable TRAY JOLLY Attending Clinician Unavailable GREG JACKSON Attending Clinician Unavailable MARIBEL TINSLEY Attending Clinician Unavailable ARNOLDO ELIZABETH Attending Clinician Unavailable CHANDANA WALSH Attending Clinician Unavailable LAYNE YI Attending Clinician Unavailable Tray Jolly MD Attending Clinician DESTINY ONEILL Attending Clinician Unavailable Destiny Oneill MD Attending Clinician Osmar Araujo MD Attending Clinician OSMAR ARAUJO Attending Clinician Unavailable Alida FERNANDO, Melony Truong Attending Clinician Unavailable Andrea Paula MD Attending Clinician Cecile Márquez MD Attending Clinician BERRY ZHAO Attending Clinician Unavailable Berry Tena Attending Clinician MATEO DE LA TORRE Attending Clinician Unavailable Doctor Unassigned, [place] Attending Clinician Unavailable STELLA WORLEY Attending Clinician Unavailable BRUNILDA, STELLA Attending Clinician Unavailable Nurse, Ry Carbajal Attending Clinician Unavailable SANJAY SÁNCHEZ Attending Clinician Unavailable CLAU AGUILAR Attending Clinician Unavailable VIK OLIVEIRA Attending Clinician Unavailable Atul HOLLINS, Ricardo Roche Attending Clinician ISAC BARR Attending Clinician Unavailable Agustina HOLLINS, Sheri Attending Clinician SHERI BERRIOS Attending Clinician Unavailable Vik Oliveira MD Attending Clinician CAPRICE HENRIQUEZ Attending Clinician Unavailable Elliot FERNANDO, Young Attending Clinician Unavailable NAV ANTONIO Attending Clinician Unavailable Isac Barney Attending Clinician Mateo De La Torre MD Attending Clinician Arnoldo Elizabeth MD Attending Clinician Jessie [facility], Genesis Shah Attending Clinician GABRIELLA SALAS Attending Clinician Unavailable ANDREA PAULA Attending Clinician Unavailable Scot [facility] Attending Clinician Princess NI, Sanjay Attending Clinician Corry Woodall Attending Clinician CORRY COON Attending Clinician Unavailable Caprice Henriquez MD Attending Clinician Caprice Ozuna RN Attending Clinician Unavailable Pob, [facility] Attending Clinician Unavailable Jorge Edmondson Attending Clinician Unavailable SHORTY YU Attending Clinician Unavailable Eladia Attending Clinician Unavailable Emily Garcia MA Attending Clinician Unavailable LAUREEN MILLAN Attending Clinician Unavailable David CUSTOMER ACCOUNT COORDINATOR, Laureen Truong Attending Clinician LAILA ORELLANA Attending Clinician Unavailable [...] Number Effective Date Expiration Date S ewa [facility] DUAL [id number] 2021 COMP CHOICE PPO 00:00:[address] [facility] [id number] 2021 00:00:00 MEDICAID [facility] [id number] 2016 00:00:00 [employer] [place] [id number] 2022 00:00:00 [facility] 2021 (MEDICARE 00:00:00 REPLACEMENT HMO) [facility] [id number] 2020 BEHAVIORAL 00:00:00 SOLUTIONS Problems Condition Condition Condition Status Onset Resolution Last Treating Co mments Source Name Details Category Date Date Treatment Clinician Date Allergy, Allergy, Disease Active 2021-09 Unive rs subsequent subsequent 11-04 [place] Poor Poor Disease Active 2021-09 [facility] dentition dentition 2- [place] of requiring requiring [place] to to Branch dentistry dentistry Mouth Mouth Disease Active 2021-09 Univers breathing breathing 2- ity of 00:00: [address] [place] [address] Weakening Weakening Disease Active Uni vers of pelvic of pelvic 4-08 ity of fundus fundus 00:00: [facility] Intestinal Intestinal Disease Active Overview : Univers metaplasia metaplasia 4-05 Formattin ity of of body of of body of 00:00: g of this [place] stomach stomach 00 note Medical without without might be Branch dysplasia dysplasia different from the original. Added automatic ally from request for surgery [id number] Chronic Chronic Disease Active Overview: Univ ers superficia superficia 4-05 Formattin ity of l l 00:00: g of this [place] gastritis gastritis 00 note Medi cipriano without without might be Branch bleeding bleeding different from the original. Added automatic ally from request for surgery [id number] Hyperplast Hyperplast Disease Active Overview : Univers ic polyps ic polyps 4-05 Formattin i ty of of stomach of stomach 00:00: g of this [place] 00 note Medical might be Branch different from the original. Added automatic ally from request for surgery [id number] Indigestio Indigestio Disease Active 2020-09 Overview : Univers n n 2-15 Formattin ity of 00:00: g of this [place] 00 note Medical might be Branch different from the original. Added automatic ally from request for surgery [id number] Bloating Bloating Disease Active 2020-09 Overview: Un jerrod 2-15 Formattin ity of 00:00: g of this [place] 00 note Medical might be Branch different from the original. Added automatic ally from request for surgery [id number] Dental Dental Disease Active Univers caries caries [...] anemia anemia 6-09 ity of 00:00: [place] [facility] Abnormal Abnormal Disease Active Unive rs uterine uterine 5-23 ity of bleeding bleeding 00:00: [facility] Submucous Submucous Disease Active Uni vers leiomyoma leiomyoma 5-23 ity of of uterus of [place] 00:[place] [facility] Encounter Encounter Disease Active Uni vers for blood for blood 2-16 [place] of transfusio transf[place] [facility] History of History of Disease Active U nivers tubal tubal 2-05 ity of ligation ligation 00:00: [place] [facility] 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 [place] disorder[place] disorder, 00 [facility] in in Branch remission remission Hypothyroi Hypothyroi Disease Active U nivers d d 2-05 ity of 00:00: [place] [facility] Essential Essential Disease Active Uni vers hypertensi hypertensi 2-05 it y of on, benign [place], benign [place] [facility] Well woman Well woman Disease Active U nivers exam exam 2-05 ity of 00:00: [facility] Chest pain Chest pain Disease Active U nivers 9-13 ity of 00:00: [place] [facility] Peripheral Peripheral Disease Active U nivers neuropathy neuropathy it y of [facility] 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 ity of [facility] PCOS PCOS Disease Active Univers (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) [facility] Branch Allergies, Adverse Reactions, Alerts Allergy Allergy Status Severity Reaction(s) Onset Inactive Treating Comm ents Source Name Type Date Date Clinician Milk Propensi Active Other - See sneeze Uni vers ty to comments 8-14 ity of adverse 00:00: [place] reaction 00 [facility] MILK DRUG Active Other-Cmnt Univer s INGREDI 8-14 ity of 00:00: [place] 00 [facility] Tomato Propensi Active Other - See Tomato Uni vers ty to comments 7-09 source ity of adverse 00:00: reportedl [place] reaction 00 y causes Medica l s excessive Branch sneezing. But pt still eats it. TOMATO DRUG Active Low Other-Cmnt 2018-0 Univer s INGREDI 7-09 ity of 00:00: [...] NE HCL INGREDI 9-04 ity of 00:00: [place] 00 [facility] ZIPRASID DRUG Active High Hives 2014- Univers ONE HCL INGREDI 05-30 ity of 00:00: [facility] AMOXICIL DRUG Active Med Hives 2014- Univers FRANCA INGREDI 05-30 ity of 00:00: [address] Social History Social Habit Start Date Stop Date Quantity Comments Source Exposure to 2022-09-27 2022-10-07 Not sure University SARS-CoV-2 (event) 00:00:00 11:07:00 [facility] Alcohol intake 2022-10-07 2022-10-07 0 /d University of 00:00:00 00:00:00 [facility] Tobacco Comment 2022-06-17 2022-06-17 10 years ago Univers ity of 00:00:00 00:00:00 [facility] Cigarettes smoked 2022-06-17 2022-06-17 Univers ity of current (pack per 00:00:00 00:00:00 [facility] ) - Reported Branch Cigarette 2022-06-17 2022-06-17 University of pack-years 00:00:00 00:00:00 [facility] Tobacco use and 2022-06-17 2022-06-17 Smokeless Universit y of exposure 00:00:00 00:00:[address] [facility] History of tobacco 1982-10-20 2007-10-20 Cigarette Smoker University of use 00:00:00 00:00:00 [facility] Sex [birth year] Universit y of 00:00:00 00:00:00 [facility] Smoking Status Start Date Stop Date Source Ex-smoker 2022-06-17 00:00:00 2022-06-17 00:00:00 Universi ty of [facility] Medications Ordered Filled Start Stop Current Ordering Indication Dosage Frequency Signature Comments Components Source Medication Medication Date Date Medication? Clinician (SIG) Name Name busPIRone Yes [id number] 20mg Take 2 Un jerrod 10 mg 1-17 tablets by ity of tablet 00:00: mouth in [place] 00 the Medical morning Branch and 2 tablets in the evening. metroNIDAZO Yes [id number] 500mg Take 1 Univers LE 500 mg 1-12 tablet by ity o f tablet 00:00: mouth in [place] 00 the Medical morning Branch and 1 tablet in the evening. dicyclomine 2023-0 Yes [id number] 20mg Take 1 Univers 20 mg 1-12 tablet by ity of tablet 00:00: mouth 4 [place] 00 (four) Medical times Branch daily. metroNIDAZO 2023-0 Yes [id number] 500mg Take 1 Univers LE 500 mg 1-12 tablet by ity o f tablet 00:00: mouth in [place] 00 the Medical morning Branch and 1 tablet in the evening. dicyclomine 2023-0 Yes [id number] 20mg Take 1 Univers 20 mg 1-12 tablet by ity of tablet 00:00: mouth 4 [place] 00 ([facility]) Medical times [place] daily. dicyclomine 2023-0 Yes 20mg Take 20 mg Univers 20 mg 1-10 by mouth 4 ity of tablet 00:00: ([facility]) [place] 00 times Medical daily. Branch metoclopram 3-0 Yes TAKE 1 Univ ers dariela HCl 10 1-10 TABLET BY ity of mg tablet 00:00: MOUTH [place] 00 EVERY 6 Medical HOURS (30 Branch MINUTES BEFORE MEALS AND AT BEDTIME) dicyclomine 2023-0 Yes 20mg Take 20 mg Univers 20 mg 1-10 by mouth 4 ity of tablet 00:00: ([facility]) [place] 00 times Medical daily. Branch metoclopram 3-0 Yes TAKE 1 Univ ers dariela HCl 10 1-10 TABLET BY ity of mg tablet 00:00: MOUTH [place] 00 EVERY 6 Medical HOURS (30 Branch MINUTES BEFORE MEALS AND AT BEDTIME) metoclopram 2023-0 Yes TAKE 1 Univ ers dariela HCl 10 1-10 TABLET BY ity of mg tablet 00:00: MOUTH [place] 00 EVERY 6 Medical HOURS (30 Branch MINUTES BEFORE MEALS AND AT BEDTIME) metoclopram 2023-0 Yes TAKE 1 Univ ers dariela HCl 10 1-10 TABLET BY ity of mg tablet 00:00: MOUTH [place] 00 EVERY 6 Medical HOURS (30 Branch MINUTES BEFORE MEALS AND AT BEDTIME) dicyclomine 2023-0 2023- No 20mg Take 20 mg Univers 20 mg 1-10 01-12 by mouth 4 ity of tablet 00:00: 00:00 ([facility]) [place] 00 :00 times Medical daily. Branch ibuprofen 2021- Yes TAKE 1 Univer s 800 mg 2-26 TABLET BY ity of tablet 00:00: MOUTH [place] 00 EVERY 8 Medical HOURS WITH Branch FOOD NEEDED FOR PAIN Nitrofurant 2021-09 Yes TAKE 1 Univ ers oin&Nit. 2-26 CAPSULE BY ity o f Macrocryst 00:00: MOUTH [place] 100 mg 00 EVERY 12 Medical capsule HOURS FOR Branch 10 DAYS ibuprofen 2021-09 Yes TAKE 1 Univer s 800 mg 2-26 TABLET BY ity of tablet 00:00: MOUTH [place] 00 EVERY 8 Medical HOURS WITH Branch FOOD NEEDED FOR PAIN Nitrofurant 2021-09 Yes TAKE 1 Univ ers oin&Nit. 2-26 CAPSULE BY ity o f Macrocryst 00:00: MOUTH [place] 100 mg 00 EVERY 12 Medical capsule HOURS FOR Branch 10 DAYS ibuprofen 2021-09 Yes TAKE 1 Univer s 800 mg 2-26 TABLET BY ity of tablet 00:00: MOUTH [place] 00 EVERY 8 Medical HOURS WITH Branch FOOD NEEDED FOR PAIN Nitrofurant 2021-09 Yes TAKE 1 Univ ers oin&Nit. 2-26 CAPSULE BY ity o f Macrocryst 00:00: MOUTH [place] 100 mg 00 EVERY 12 Medical capsule HOURS FOR Branch 10 DAYS ibuprofen 2021-09 Yes TAKE 1 Univer s 800 mg 2-26 TABLET BY ity of tablet 00:00: MOUTH [place] 00 EVERY 8 Medical HOURS WITH Branch FOOD NEEDED FOR PAIN Nitrofurant 2021-09 Yes TAKE 1 Univ ers oin&Nit. 2-26 CAPSULE BY ity o f Macrocryst 00:00: MOUTH [place] 100 mg 00 EVERY 12 Medical capsule HOURS FOR Branch 10 DAYS diphenoxyla 2021-09 Yes TAKE 2 Univ ers te-atropine 2-17 TABLETS BY it y of 2.5-0.025 00:00: MOUTH [place]CE [place] mg tablet 00 DAILY Medica l NEEDED Branch diphenoxyla 2021-09 Yes TAKE 2 Univ ers te-atropine 2-17 TABLETS BY it y of 2.5-0.025 00:00: MOUTH [place]CE [place] mg tablet 00 DAILY Medica l NEEDED Branch diphenoxyla 2021-09 Yes TAKE 2 Univ ers te-atropine 2-17 TABLETS BY it y of 2.5-0.025 00:00: MOUTH [place]CE [place] mg tablet 00 DAILY Medica l NEEDED Branch diphenoxyla 2021-09 Yes TAKE 2 Univ ers te-atropine 2-17 TABLETS BY it y of 2.5-0.025 00:00: MOUTH [place]CE [place] mg tablet 00 DAILY Medica l NEEDED Branch pregabalin 2021-09 Yes [id number] 150mg Take 1 Univers 150 mg 2-14 capsule by ity of capsule 00:00: mouth in [address] and 1 capsule at noon and 1 capsule in the evening. pregabalin 2021-09 Yes [id number] 150mg Take 1 Univers 150 mg 2-14 capsule by ity of capsule 00:00: mouth in [address] and 1 capsule at noon and 1 capsule in the evening. pregabalin 2021-09 Yes [id number] 150mg Take 1 Univers 150 mg 2-14 capsule by ity of capsule 00:00: mouth in [address] and 1 capsule at noon and 1 capsule in the evening. pregabalin 2021-09 Yes [id number] 150mg Take 1 Univers 150 mg 2-14 capsule by ity of capsule 00:00: mouth in [address] and 1 capsule at noon and 1 capsule in the evening. pregabalin 2021-09 Yes [id number] 150mg Take 1 Univers 150 mg 2-14 capsule by ity of capsule 00:00: mouth in [address] and 1 capsule at noon and 1 capsule in the evening. pregabalin 2021-09 Yes [id number] 150mg Take 1 Univers 150 mg 2-14 capsule by ity of capsule 00:00: mouth in [address] and 1 capsule at noon and 1 capsule in the evening. pregabalin 2021-09 Yes [id number] 150mg Take 1 Univers 150 mg 2-14 capsule by ity of capsule 00:00: mouth in [address] and 1 capsule at noon and 1 capsule in the evening. pregabalin 2021-09 Yes [id number] 150mg Take 1 Univers 150 mg 2-14 capsule by ity of capsule 00:00: mouth in [address] and 1 capsule at noon and 1 capsule in the evening. montelukast 2021-09 Yes [id number] 10mg Take 1 Univers (SINGULAIR) 2-09 tablet by ity of 10 mg 00:00: mouth in [place] tablet 00 the Medical morning. [facility] 2021-09 Yes [id number] 10mg Take 1 Univers (SINGULAIR) 2-09 tablet by ity of 10 mg 00:00: mouth in [place] tablet 00 the Medical morning. [facility] 2021-09 Yes [id number] 10mg Take 1 Univers (SINGULAIR) 2-09 tablet by ity of 10 mg 00:00: mouth in [place] tablet 00 the Medical morning. [facility] 2021-09 Yes [id number] 10mg Take 1 Univers (SINGULAIR) 2-09 tablet by ity of 10 mg 00:00: mouth in [place] tablet 00 the Medical morning. [facility] 2021-09 Yes [id number] 10mg Take 1 Univers (SINGULAIR) 2-09 tablet by ity of 10 mg 00:00: mouth in [place] tablet 00 the Medical morning. [facility] 2021-09 Yes [id number] 10mg Take 1 Univers (SINGULAIR) 2-09 tablet by ity of 10 mg 00:00: mouth in [place] tablet 00 the Medical morning. [facility] 2021-09 Yes [id number] 10mg Take 1 Univers (SINGULAIR) 2-09 tablet by ity of 10 mg 00:00: mouth in [place] tablet 00 the Medical morning. [facility] 2021-09 Yes [id number] 10mg Take 1 Univers (SINGULAIR) 2-09 tablet by ity of 10 mg 00:00: mouth in [place] tablet 00 the Medical morning. [facility] 2021-09 Yes [id number] 10mg Take 1 Univers (SINGULAIR) 2-09 tablet by ity of 10 mg 00:00: mouth in [place] tablet 00 the Medical morning. [facility] 2021-09 Yes [id number] 10mg Take 1 Univers (SINGULAIR) 2-09 tablet by ity of 10 mg 00:00: mouth in [place] tablet 00 the Medical morning. [facility] 2021-09 Yes [id number] 10mg Take 1 Univers (SINGULAIR) 2-09 tablet by ity of 10 mg 00:00: mouth in [place] tablet 00 the Medical morning. [facility] 2021-09 Yes [id number] 10mg Take 1 Univers (SINGULAIR) 2-09 tablet by ity of 10 mg 00:00: mouth in [place] tablet 00 the Medical morning. Branch famotidine 2021-09 Yes TAKE 1 Unive rs 20 mg 2-02 TABLET BY ity of tablet 00:00: MOUTH [place] 00 EVERY 12 Medical HOURS FOR Branch 10 DAYS levoFLOXaci 2021-09 Yes TAKE 1 Univ ers n 500 mg 2-02 TABLET BY ity of tablet 00:00: MOUTH ONCE [place] 00 DAILY FOR Medical 7 DAYS Branch famotidine 2021-09 Yes TAKE 1 Unive rs 20 mg 2-02 TABLET BY ity of tablet 00:00: MOUTH [place] 00 EVERY 12 Medical HOURS FOR Branch 10 DAYS levoFLOXaci 2021-09 Yes TAKE 1 Univ ers n 500 mg 2-02 TABLET BY ity of tablet 00:00: MOUTH ONCE [place] 00 DAILY FOR Medical 7 DAYS Branch famotidine 2021-09 Yes TAKE 1 Unive rs 20 mg 2-02 TABLET BY ity of tablet 00:00: MOUTH [place] 00 EVERY 12 Medical HOURS FOR Branch 10 DAYS levoFLOXaci 2021-09 Yes TAKE 1 Univ ers n 500 mg 2-02 TABLET BY ity of tablet 00:00: MOUTH ONCE [place] 00 DAILY FOR Medical 7 DAYS Branch famotidine 2021-09 Yes TAKE 1 Unive rs 20 mg 2-02 TABLET BY ity of tablet 00:00: MOUTH [place] 00 EVERY 12 Medical HOURS FOR Branch 10 DAYS levoFLOXaci 2021-09 Yes TAKE 1 Univ ers n 500 mg 2-02 TABLET BY ity of tablet 00:00: MOUTH ONCE [place] 00 DAILY FOR Medical 7 DAYS Branch CYANOCOBALA 2021-09 Yes [id number] INJECT 1ML Univers MIN 1,000 1-30 INTRAMUSCU ity of mcg/mL 00:00: LARLY [place] injection 00 EVERY TWO Medic al WEEKS Branch CYANOCOBALA 2021-09 Yes [id number] INJECT 1ML Univers MIN 1,000 1-30 INTRAMUSCU ity of mcg/mL 00:00: LARLY [place] injection 00 EVERY TWO Medic al WEEKS Branch CYANOCOBALA 2021-09 Yes [id number] INJECT 1ML Univers MIN 1,000 1-30 INTRAMUSCU ity of mcg/mL 00:00: LARLY [place] injection 00 EVERY TWO Medic al WEEKS Branch CYANOCOBALA 2021-09 Yes [id number] INJECT 1ML Univers MIN 1,000 1-30 INTRAMUSCU ity of mcg/mL 00:00: LARLY [place] injection 00 EVERY TWO Medic al WEEKS Branch CYANOCOBALA 2021-09 Yes [id number] INJECT 1ML Univers MIN 1,000 1-30 INTRAMUSCU ity of mcg/mL 00:00: LARLY [place] injection 00 EVERY TWO Medic al WEEKS Branch CYANOCOBALA 2021-09 Yes [id number] INJECT 1ML Univers MIN 1,000 1-30 INTRAMUSCU ity of mcg/mL 00:00: LARLY [place] injection 00 EVERY TWO Medic al WEEKS Branch CYANOCOBALA 2021-09 Yes [id number] INJECT 1ML Univers MIN 1,000 1-30 INTRAMUSCU ity of mcg/mL 00:00: LARLY [place] injection 00 EVERY TWO Medic al WEEKS Branch CYANOCOBALA 2021-09 Yes [id number] INJECT 1ML Univers MIN 1,000 1-30 INTRAMUSCU ity of mcg/mL 00:00: LARLY [place] injection 00 EVERY TWO Medic al WEEKS Branch CYANOCOBALA 2021-09 Yes [id number] INJECT 1ML Univers MIN 1,000 1-30 INTRAMUSCU ity of mcg/mL 00:00: LARLY [place] injection 00 EVERY TWO Medic al WEEKS Branch CYANOCOBALA 2021-09 Yes [id number] INJECT 1ML Univers MIN 1,000 1-30 INTRAMUSCU ity of mcg/mL 00:00: LARLY [place] injection 00 EVERY TWO Medic al WEEKS Branch CYANOCOBALA 2021-09 Yes [id number] INJECT 1ML Univers MIN 1,000 1-30 INTRAMUSCU ity of mcg/mL 00:00: LARLY [place] injection 00 EVERY TWO Medic al WEEKS Branch CYANOCOBALA 2021-09 Yes [id number] INJECT 1ML Univers MIN 1,000 1-30 INTRAMUSCU ity of mcg/mL 00:00: LARLY [place] injection 00 EVERY TWO Medic al WEEKS Branch CYANOCOBALA 2021-09 Yes [id number] INJECT 1ML Univers MIN 1,000 1-30 INTRAMUSCU ity of mcg/mL 00:00: LARLY [place] injection 00 EVERY TWO Medic al WEEKS Branch ondansetron 2021-09 Yes TAKE 1 Univ ers 4 mg tablet 1-22 TABLET BY ity of 00:00: MOUTH [place] 00 EVERY 12 Medical HOURS Branch NEEDED ondansetron 2021-09 Yes TAKE 1 Univ ers 4 mg tablet 1-22 TABLET BY ity of 00:00: MOUTH [place] 00 EVERY 12 Medical HOURS Branch NEEDED ondansetron 2021-09 Yes TAKE 1 Univ ers 4 mg tablet 1-22 TABLET BY ity of 00:00: MOUTH [place] 00 EVERY 12 Medical HOURS Branch NEEDED ondansetron 2021-09 Yes TAKE 1 Univ ers 4 mg tablet 1-22 TABLET BY ity of 00:00: MOUTH [place] 00 EVERY 12 Medical HOURS Branch NEEDED naproxen 2021-09 Yes 500mg Take 500 Univ ers 500 mg 1-18 mg by ity of tablet 00:00: mouth in [place] 00 the Medical morning Branch and 500 mg in the evening. Take with meals. naproxen 2021-09 Yes 500mg Take 500 Univ ers 500 mg 1-18 mg by ity of tablet 00:00: mouth in [place] 00 the Medical morning Branch and 500 mg in the evening. Take with meals. naproxen 2021-09 Yes 500mg Take 500 Univ ers 500 mg 1-18 mg by ity of tablet 00:00: mouth in [place] 00 the Medical morning Branch and 500 mg in the evening. Take with meals. naproxen 2021-09 Yes 500mg Take 500 Univ ers 500 mg 1-18 mg by ity of tablet 00:00: mouth in [place] 00 the Medical morning Branch and 500 mg in the evening. Take with meals. levothyroxi 2021-09 Yes [id number] 50ug Take 1 Univers ne 50 mcg 1-03 tablet by ity o f tablet 00:00: mouth [place] 00 every Medical morning. Branch levothyroxi 2021-09 Yes [id number] 50ug Take 1 Univers ne 50 mcg 1-03 tablet by ity o f tablet 00:00: mouth [place] 00 every Medical morning. Branch levothyroxi 2021-09 Yes [id number] 50ug Take 1 Univers ne 50 mcg 1-03 tablet by ity o f tablet 00:00: mouth [place] 00 every Medical morning. Branch levothyroxi 2021-09 Yes [id number] 50ug Take 1 Univers ne 50 mcg 1-03 tablet by ity o f tablet 00:00: mouth [place] 00 every Medical morning. Branch levothyroxi 2021-09 Yes [id number] 50ug Take 1 Univers ne 50 mcg 1-03 tablet by ity o f tablet 00:00: mouth [place] 00 every Medical morning. Branch levothyroxi 2021-09 Yes [id number] 50ug Take 1 Univers ne 50 mcg 1-03 tablet by ity o f tablet 00:00: mouth [place] 00 every Medical morning. Branch levothyroxi 2021-09 Yes [id number] 50ug Take 1 Univers ne 50 mcg 1-03 tablet by ity o f tablet 00:00: mouth [place] 00 every Medical morning. Branch levothyroxi 2021-09 Yes [id number] 50ug Take 1 Univers ne 50 mcg 1-03 tablet by ity o f tablet 00:00: mouth [place] 00 every Medical morning. Branch levothyroxi 2021-09 Yes [id number] 50ug Take 1 Univers ne 50 mcg 1-03 tablet by ity o f tablet 00:00: mouth [place] 00 every Medical morning. Branch levothyroxi 2021-09 Yes [id number] 50ug Take 1 Univers ne 50 mcg 1-03 tablet by ity o f tablet 00:00: mouth [place] 00 every Medical morning. Branch levothyroxi 2021-09 Yes [id number] 50ug Take 1 Univers ne 50 mcg 1-03 tablet by ity o f tablet 00:00: mouth [place] 00 every Medical morning. Branch levothyroxi 2021-09 Yes [id number] 50ug Take 1 Univers ne 50 mcg 1-03 tablet by ity o f tablet 00:00: mouth [place] 00 every Medical morning. Branch levothyroxi 2021-09 Yes [id number] 50ug Take 1 Univers ne 50 mcg 1-03 tablet by ity o f tablet 00:00: mouth [place] 00 every Medical morning. Branch levothyroxi 2021-09 Yes [id number] 50ug Take 1 Univers ne 50 mcg 1-03 tablet by ity o f tablet 00:00: mouth [place] 00 every Medical morning. Branch levothyroxi 2021-09 Yes [id number] 50ug Take 1 Univers ne 50 mcg 1-03 tablet by ity o f tablet 00:00: mouth [place] 00 every Medical morning. Branch levothyroxi 2021-09 Yes [id number] 50ug Take 1 Univers ne 50 mcg 1-03 tablet by ity o f tablet 00:00: mouth [place] 00 every Medical morning. Branch levothyroxi 2021-09 Yes [id number] 50ug Take 1 Univers ne 50 mcg 1-03 tablet by ity o f tablet 00:00: mouth [place] 00 every Medical morning. Branch levothyroxi 2021-09 Yes [id number] 50ug Take 1 Univers ne 50 mcg 1-03 tablet by ity o f tablet 00:00: mouth [place] 00 every Medical morning. Branch levothyroxi 2021-09 Yes [id number] 50ug Take 1 Univers ne 50 mcg 1-03 tablet by ity o f tablet 00:00: mouth [place] 00 every Medical morning. Branch levothyroxi 2021-09 Yes [id number] 50ug Take 1 Univers ne 50 mcg [...] ORAL) 37 Medical Branch diltiazem 2021-09 Yes [id number] 120mg Take 1 U nivers 120 mg 24 09-26 capsule by ity of hr capsule 00:00: mouth in [place] 00 the Medical morning Branch and 1 capsule in the evening. fluticasone 2021-09 Yes [id number] 2{puff} Inhale 2 Univers propionate 1-01 Puffs ity of (FLOVENT 00:00: every 12 [place] HFA) 110 00 (twelve) Medical mcg/actuati hours. Branch on inhaler Rinse mouth after each use. levothyroxi 2021-09 Yes [id number] 50ug Take 1 [facility] ne 50 mcg 1-01 tablet by ity o f tablet 00:00: mouth [place] 00 every Medical morning. Branch metformin 2021-09 Yes [id number] 500mg Take 1 U nivers ER 500 mg 1-01 tablet by ity o f 24 hr 00:00: mouth [place] tablet 00 daily with Medical breakfast. Branch pantoprazol 2021-09 Yes [id number] 40mg Take 1 [facility] e 40 mg EC 1-01 tablet by ity of tablet 00:00: mouth in [place] 00 the Medical morning. Branch pregabalin 2021-09 Yes [id number] 150mg Take 1 [facility] 150 mg 1-01 capsule by ity of capsule 00:00: mouth in [place] 00 the Medical morning Branch and 1 capsule at noon and 1 capsule in the evening. rosuvastati 2021-09 Yes [id number] 10mg Take 1 [facility] n 10 mg 1-01 tablet by ity of tablet 00:00: mouth at [place] 00 bedtime. Medical Branch SUMAtriptan 2021-09 Yes [id number] 50mg Take 1 [facility] 50 mg 1-01 tablet by ity of tablet 00:00: mouth as [place] 00 needed for Medical Migraine. Branch diltiazem 2021-09 Yes [id number] 120mg Take 1 [facility] nivers 120 mg 24 1-01 capsule by ity of hr capsule 00:00: mouth in [place] as 00 the Medical morning Branch and 1 capsule in the evening. fluticasone 2021-09 Yes [id number] 2{puff} Inhale 2 [facility] propionate 1-01 Puffs ity of (FLOVENT 00:00: every 12 [place] HFA) 110 00 (twelve) Medical mcg/actuati hours. Branch on inhaler Rinse mouth after each use. levothyroxi 2021-09 Yes [id number] 50ug Take 1 [facility] ne 50 mcg 1-01 tablet by ity o f tablet 00:00: mouth [place] 00 every Medical morning. Branch metformin 2021-09 Yes [id number] 500mg Take 1 [facility] nivers ER 500 mg 1-01 tablet by ity o f 24 hr 00:00: mouth [place] tablet 00 daily with Medical breakfast. Branch pantoprazol 2021-09 Yes [id number] 40mg Take 1 [facility] e 40 mg EC 1-01 tablet by ity of tablet 00:00: mouth in [place] 00 the Medical morning. Branch pregabalin 2021-09 Yes [id number] 150mg Take 1 [facility] 150 mg 1-01 capsule by ity of capsule 00:00: mouth in [place] 00 the Medical morning Branch and 1 capsule at noon and 1 capsule in the evening. rosuvastati 2021-09 Yes [id number] 10mg Take 1 [facility] n 10 mg 1-01 tablet by ity of tablet 00:00: mouth at [place] [address] bedtime. Medical Branch SUMAtriptan 2021-09 Yes [id number] 50mg Take 1 [facility] 50 mg 1-01 tablet by ity of tablet 00:00: mouth as [place] 00 needed for Medical Migraine. Branch diltiazem 2021-09 Yes [id number] 120mg Take 1 [facility] nivers 120 mg 24 1-01 capsule by ity of hr capsule 00:00: mouth in [facility] as 00 the Medical morning Branch and 1 capsule in the evening. fluticasone 2021-09 Yes [id number] 2{puff} Inhale 2 [facility] propionate 1-01 Puffs ity of (FLOVENT 00:00: every 12 [place] HFA) 110 00 (twelve) Medical mcg/actuati hours. Branch on inhaler Rinse mouth after each use. metformin 2021-09 Yes [id number] 500mg Take 1 [facility] nivers ER 500 mg 1-01 tablet by ity o f 24 hr 00:00: mouth [place] tablet 00 daily with Medical breakfast. Branch pantoprazol 2021-09 Yes [id number] 40mg Take 1 [facility] e 40 mg EC 1-01 tablet by ity of tablet 00:00: mouth in [place] 00 the Medical morning. Branch pregabalin 2021-09 Yes [id number] 150mg Take 1 [facility] 150 mg 1-01 capsule by ity of capsule 00:00: mouth in [place] 00 the Medical morning Branch and 1 capsule at noon and 1 capsule in the evening. rosuvastati 2021-09 Yes [id number] 10mg Take 1 [facility] n 10 mg 1-01 tablet by ity of tablet 00:00: mouth at [place] [address] bedtime. Medical Branch SUMAtriptan 2021-09 Yes [id number] 50mg Take 1 [facility] 50 mg 1-01 tablet by ity of tablet 00:00: mouth as [place] 00 needed for Medical Migraine. Branch diltiazem 2021-09 Yes [id number] 120mg Take 1 [facility] nivers 120 mg 24 1-01 capsule by ity of hr capsule 00:00: mouth in [place] as 00 the Medical morning Branch and 1 capsule in the evening. fluticasone 2021-09 Yes [id number] 2{puff} Inhale 2 [facility] propionate 1-01 Puffs ity of (FLOVENT 00:00: every 12 [place] HFA) 110 00 (twelve) Medical mcg/actuati hours. Branch on inhaler Rinse mouth after each use. metformin 2021-09 Yes [id number] 500mg Take 1 [facility] nivers ER 500 mg 1-01 tablet by ity o f 24 hr 00:00: mouth [place] tablet 00 daily with Medical breakfast. Branch pantoprazol 2021-09 Yes [id number] 40mg Take 1 [facility] e 40 mg EC 1-01 tablet by ity of tablet 00:00: mouth in [place] 00 the Medical morning. Branch pregabalin 2021-09 Yes [id number] 150mg Take 1 [facility] 150 mg 1-01 capsule by ity of capsule 00:00: mouth in [place] 00 the Medical morning Branch and 1 capsule at noon and 1 capsule in the evening. rosuvastati 2021-09 Yes [id number] 10mg Take 1 [facility] n 10 mg 1-01 tablet by ity of tablet 00:00: mouth at [place] [address] bedtime. Medical Branch SUMAtriptan 2021-09 Yes [id number] 50mg Take 1 [facility] 50 mg 1-01 tablet by ity of tablet 00:00: mouth as [place] 00 needed for Medical Migraine. Branch diltiazem 2021-09 Yes [id number] 120mg Take 1 [facility] nivers 120 mg 24 1-01 capsule by ity of hr capsule 00:00: mouth in [place] as 00 the Medical morning Branch and 1 capsule in the evening. fluticasone 2021-09 Yes [id number] 2{puff} Inhale 2 [facility] propionate 1-01 Puffs ity of (FLOVENT 00:00: every 12 [place] HFA) 110 00 (twelve) Medical mcg/actuati hours. Branch on inhaler Rinse mouth after each use. metformin 2021-09 Yes [id number] 500mg Take 1 [facility] nivers ER 500 mg 1-01 tablet by ity o f 24 hr 00:00: mouth [place] tablet 00 daily with Medical breakfast. Branch pantoprazol 2021-09 Yes [id number] 40mg Take 1 [facility] e 40 mg EC 1-01 tablet by ity of tablet 00:00: mouth in [place] 00 the Medical morning. Branch pregabalin 2021-09 Yes [id number] 150mg Take 1 [facility] 150 mg 1-01 capsule by ity of capsule 00:00: mouth in [place] 00 the Medical morning Branch and 1 capsule at noon and 1 capsule in the evening. rosuvastati 2021-09 Yes [id number] 10mg Take 1 [facility] n 10 mg 1-01 tablet by ity of tablet 00:00: mouth at [place] 00 bedtime. Medical Branch SUMAtriptan 2021-09 Yes [id number] 50mg Take 1 [facility] 50 mg 1-01 tablet by ity of tablet 00:00: mouth as [place] 00 needed for Medical Migraine. Branch diltiazem 2021-09 Yes [id number] 120mg Take 1 [facility] nivers 120 mg 24 1-01 capsule by ity of hr capsule 00:00: mouth in [place] as 00 the Medical morning Branch and 1 capsule in the evening. fluticasone 2021-09 Yes [id number] 2{puff} Inhale 2 [facility] propionate 1-01 Puffs ity of (FLOVENT 00:00: every 12 [place] HFA) 110 00 (twelve) Medical mcg/actuati hours. Branch on inhaler Rinse mouth after each use. metformin 2021-09 Yes [id number] 500mg Take 1 [facility] nivers ER 500 mg 1-01 tablet by ity o f 24 hr 00:00: mouth [place] tablet 00 daily with Medical breakfast. Branch pantoprazol 2021-09 Yes [id number] 40mg Take 1 [facility] e 40 mg EC 1-01 tablet by ity of tablet 00:00: mouth in [place] 00 the Medical morning. Branch pregabalin 2021-09 Yes [id number] 150mg Take 1 [facility] 150 mg 1-01 capsule by ity of capsule 00:00: mouth in [place] 00 the Medical morning Branch and 1 capsule at noon and 1 capsule in the evening. rosuvastati 2021-09 Yes [id number] 10mg Take 1 [facility] n 10 mg 1-01 tablet by ity of tablet 00:00: mouth at [place] 00 bedtime. Medical Branch SUMAtriptan 2021-09 Yes [id number] 50mg Take 1 [facility] 50 mg 1-01 tablet by ity of tablet 00:00: mouth as [place] 00 needed for Medical Migraine. Branch diltiazem 2021-09 Yes [id number] 120mg Take 1 [facility] nivers 120 mg 24 1-01 capsule by ity of hr capsule 00:00: mouth in [facility] as 00 the Medical morning Branch and 1 capsule in the evening. fluticasone 2021-09 Yes [id number] 2{puff} Inhale 2 [facility] propionate 1-01 Puffs ity of (FLOVENT 00:00: every 12 [place] HFA) 110 00 (twelve) Medical mcg/actuati hours. Branch on inhaler Rinse mouth after each use. metformin 2021-09 Yes [id number] 500mg Take 1 [facility] nivers ER 500 mg 1-01 tablet by ity o f 24 hr 00:00: mouth [place] tablet 00 daily with Medical breakfast. Branch pantoprazol 2021-09 Yes [id number] 40mg Take 1 [facility] e 40 mg EC 1-01 tablet by ity of tablet 00:00: mouth in [place] 00 the Medical morning. Branch pregabalin 2021-09 Yes [id number] 150mg Take 1 [facility] 150 mg 1-01 capsule by ity of capsule 00:00: mouth in [place] 00 the Medical morning Branch and 1 capsule at noon and 1 capsule in the evening. rosuvastati 2021-09 Yes [id number] 10mg Take 1 [facility] n 10 mg 1-01 tablet by ity of tablet 00:00: mouth at [place] [address] bedtime. Medical Branch SUMAtriptan 2021-09 Yes [id number] 50mg Take 1 [facility] 50 mg 1-01 tablet by ity of tablet 00:00: mouth as [place] 00 needed for Medical Migraine. Branch diltiazem 2021-09 Yes [id number] 120mg Take 1 [facility] nivers 120 mg 24 1-01 capsule by ity of hr capsule 00:00: mouth in [facility] as 00 the Medical morning Branch and 1 capsule in the evening. fluticasone 2021-09 Yes [id number] 2{puff} Inhale 2 [facility] propionate 1-01 Puffs ity of (FLOVENT 00:00: every 12 [place] HF) 110 00 (twelve) Medical mcg/actuati hours. Branch on inhaler Rinse mouth after each use. metformin 2021-09 Yes [id number] 500mg Take 1 U nivers ER 500 mg 1-01 tablet by ity o f 24 hr 00:00: mouth [place] tablet 00 daily with Medical breakfast. Branch pantoprazol 2021-09 Yes [id number] 40mg Take 1 [facility] e 40 mg EC 1-01 tablet by ity of tablet 00:00: mouth in [place] 00 the Medical morning. Branch pregabalin 2021-09 Yes [id number] 150mg Take 1 [facility] 150 mg 1-01 capsule by ity of capsule 00:00: mouth in [place] 00 the Medical morning Branch and 1 capsule at noon and 1 capsule in the evening. rosuvastati 2021-09 Yes [id number] 10mg Take 1 [facility] n 10 mg 1-01 tablet by ity of tablet 00:00: mouth at [place] [address] bedtime. Medical Branch SUMAtriptan 2021-09 Yes [id number] 50mg Take 1 [facility] 50 mg 1-01 tablet by ity of tablet 00:00: mouth as [place] 00 needed for Medical Migraine. Branch diltiazem 2021-09 Yes [id number] 120mg Take 1 [facility] nivers 120 mg 24 1-01 capsule by ity of hr capsule 00:00: mouth in [facility] as 00 the Medical morning Branch and 1 capsule in the evening. fluticasone 2021-09 Yes [id number] 2{puff} Inhale 2 [facility] propionate 1-01 Puffs ity of (FLOVENT 00:00: every 12 [place] HFA) 110 00 (twelve) Medical mcg/actuati hours. Branch on inhaler Rinse mouth after each use. metformin 2021-09 Yes [id number] 500mg Take 1 U nivers ER 500 mg 1-01 tablet by ity o f 24 hr 00:00: mouth [place] tablet 00 daily with Medical breakfast. Branch pantoprazol 2021-09 Yes [id number] 40mg Take 1 [facility] e 40 mg EC 1-01 tablet by ity of tablet 00:00: mouth in [place] 00 the Medical morning. Branch pregabalin 2021-09 Yes [id number] 150mg Take 1 [facility] 150 mg 1-01 capsule by ity of capsule 00:00: mouth in [place] 00 the Medical morning Branch and 1 capsule at noon and 1 capsule in the evening. rosuvastati 2021-09 Yes [id number] 10mg Take 1 [facility] n 10 mg 1-01 tablet by ity of tablet 00:00: mouth at [place] [address] bedtime. Medical Branch SUMAtriptan 2021-09 Yes [id number] 50mg Take 1 [facility] 50 mg 1-01 tablet by ity of tablet 00:00: mouth as [place] 00 needed for Medical Migraine. Branch diltiazem 2021-09 Yes [id number] 120mg Take 1 [facility] nivers 120 mg 24 1-01 capsule by ity of hr capsule 00:00: mouth in [place] as 00 the Medical morning Branch and 1 capsule in the evening. fluticasone 2021-09 Yes [id number] 2{puff} Inhale 2 [facility] propionate 1-01 Puffs ity of (FLOVENT 00:00: every 12 [place] HFA) 110 00 (twelve) Medical mcg/actuati hours. Branch on inhaler Rinse mouth after each use. metformin 2021-09 Yes [id number] 500mg Take 1 U nivers ER 500 mg 1-01 tablet by ity o f 24 hr 00:00: mouth [place] tablet 00 daily with Medical breakfast. Branch pantoprazol 2021-09 Yes [id number] 40mg Take 1 [facility] e 40 mg EC 1-01 tablet by ity of tablet 00:00: mouth in [place] 00 the Medical morning. Branch pregabalin 2021-09 Yes [id number] 150mg Take 1 [facility] 150 mg 1-01 capsule by ity of capsule 00:00: mouth in [place] 00 the Medical morning Branch and 1 capsule at noon and 1 capsule in the evening. rosuvastati 2021-09 Yes [id number] 10mg Take 1 [facility] n 10 mg 1-01 tablet by ity of tablet 00:00: mouth at [place] [address] bedtime. Medical Branch SUMAtriptan 2021-09 Yes [id number] 50mg Take 1 [facility] 50 mg 1-01 tablet by ity of tablet 00:00: mouth as [place] 00 needed for Medical Migraine. Branch diltiazem 2021-09 Yes [id number] 120mg Take 1 U nivers 120 mg 24 1-01 capsule by ity of hr capsule 00:00: mouth in [place] as 00 the Medical morning Branch and 1 capsule in the evening. fluticasone 2021-09 Yes [id number] 2{puff} Inhale 2 [facility] propionate 1-01 Puffs ity of (FLOVENT 00:00: every 12 [place] HFA) 110 00 (twelve) Medical mcg/actuati hours. Branch on inhaler Rinse mouth after each use. metformin 2021-09 Yes [id number] 500mg Take 1 U nivers ER 500 mg 1-01 tablet by ity o f 24 hr 00:00: mouth [place] tablet 00 daily with Medical breakfast. Branch pantoprazol 2021-09 Yes [id number] 40mg Take 1 [facility] e 40 mg EC 1-01 tablet by ity of tablet 00:00: mouth in [place] 00 the Medical morning. Branch pregabalin 2021-09 Yes [id number] 150mg Take 1 [facility] 150 mg 1-01 capsule by ity of capsule 00:00: mouth in [place] 00 the Medical morning Branch and 1 capsule at noon and 1 capsule in the evening. rosuvastati 2021-09 Yes [id number] 10mg Take 1 [facility] n 10 mg 1-01 tablet by ity of tablet 00:00: mouth at [place] 00 bedtime. Medical Branch SUMAtriptan 2021-09 Yes [id number] 50mg Take 1 [facility] 50 mg 1-01 tablet by ity of tablet 00:00: mouth as [place] 00 needed for Medical Migraine. Branch diltiazem 2021-09 Yes [id number] 120mg Take 1 U nivers 120 mg 24 1-01 capsule by ity of hr capsule 00:00: mouth in [facility] as 00 the Medical morning Branch and 1 capsule in the evening. fluticasone 2021-09 Yes [id number] 2{puff} Inhale 2 [facility] propionate 1-01 Puffs ity of (FLOVENT 00:00: every 12 [place] HFA) 110 00 (twelve) Medical mcg/actuati hours. Branch on inhaler Rinse mouth after each use. metformin 2021-09 Yes [id number] 500mg Take 1 U nivers ER 500 mg 1-01 tablet by ity o f 24 hr 00:00: mouth [place] tablet 00 daily with Medical breakfast. Branch pantoprazol 2021-09 Yes [id number] 40mg Take 1 [facility] e 40 mg EC 1-01 tablet by ity of tablet 00:00: mouth in [place] 00 the Medical morning. Branch pregabalin 2021-09 Yes [id number] 150mg Take 1 [facility] 150 mg 1-01 capsule by ity of capsule 00:00: mouth in [place] 00 the Medical morning Branch and 1 capsule at noon and 1 capsule in the evening. rosuvastati 2021-09 Yes [id number] 10mg Take 1 [facility] n 10 mg 1-01 tablet by ity of tablet 00:00: mouth at [place] 00 bedtime. Medical Branch SUMAtriptan 2021-09 Yes [id number] 50mg Take 1 [facility] 50 mg 1-01 tablet by ity of tablet 00:00: mouth as [place] 00 needed for Medical Migraine. Branch diltiazem 2021-09 Yes [id number] 120mg Take 1 U nivers 120 mg 24 1-01 capsule by ity of hr capsule 00:00: mouth in [facility] as 00 the Medical morning Branch and 1 capsule in the evening. fluticasone 2021-09 Yes [id number] 2{puff} Inhale 2 [facility] propionate 1-01 Puffs ity of (FLOVENT 00:00: every 12 [place] HFA) 110 00 (twelve) Medical mcg/actuati hours. Branch on inhaler Rinse mouth after each use. metformin 2021-09 Yes [id number] 500mg Take 1 U nivers ER 500 mg 1-01 tablet by ity o f 24 hr 00:00: mouth [place] tablet 00 daily with Medical breakfast. Branch pantoprazol 2021-09 Yes [id number] 40mg Take 1 [facility] e 40 mg EC 1-01 tablet by ity of tablet 00:00: mouth in [place] 00 the Medical morning. Branch pregabalin 2021-09 Yes [id number] 150mg Take 1 [facility] 150 mg 1-01 capsule by ity of capsule 00:00: mouth in [place] 00 the Medical morning Branch and 1 capsule at noon and 1 capsule in the evening. rosuvastati 2021-09 Yes [id number] 10mg Take 1 [facility] n 10 mg 1-01 tablet by ity of tablet 00:00: mouth at [place] [address] bedtime. Medical Branch SUMAtriptan 2021-09 Yes [id number] 50mg Take 1 [facility] 50 mg 1-01 tablet by ity of tablet 00:00: mouth as [place] 00 needed for Medical Migraine. Branch diltiazem 2021-09 Yes [id number] 120mg Take 1 U nivers 120 mg 24 1-01 capsule by ity of hr capsule 00:00: mouth in [place] as 00 the Medical morning Branch and 1 capsule in the evening. fluticasone 2021-09 Yes [id number] 2{puff} Inhale 2 [facility] propionate 1-01 Puffs ity of (FLOVENT 00:00: every 12 [place] HFA) 110 00 (twelve) Medical mcg/actuati hours. Branch on inhaler Rinse mouth after each use. metformin 2021-09 Yes [id number] 500mg Take 1 U nivers ER 500 mg 1-01 tablet by ity o f 24 hr 00:00: mouth [place] tablet 00 daily with Medical breakfast. Branch pantoprazol 2021-09 Yes [id number] 40mg Take 1 [facility] e 40 mg EC 1-01 tablet by ity of tablet 00:00: mouth in [place] 00 the Medical morning. Branch rosuvastati 2021-09 Yes [id number] 10mg Take 1 [facility] n 10 mg 1-01 tablet by ity of tablet 00:00: mouth at [place] 00 bedtime. Medical Branch SUMAtriptan 2021-09 Yes [id number] 50mg Take 1 [facility] 50 mg 1-01 tablet by ity of tablet 00:00: mouth as [place] 00 needed for Medical Migraine. Branch diltiazem 2021-09 Yes [id number] 120mg Take 1 U nivers 120 mg 24 1-01 capsule by ity of hr capsule 00:00: mouth in [place] as 00 the Medical morning Branch and 1 capsule in the evening. fluticasone 2021-09 Yes [id number] 2{puff} Inhale 2 [facility] propionate 1-01 Puffs ity of (FLOVENT 00:00: every 12 [place] HFA) 110 00 (twelve) Medical mcg/actuati hours. Branch on inhaler Rinse mouth after each use. metformin 2021-09 Yes [id number] 500mg Take 1 U nivers ER 500 mg 1-01 tablet by ity o f 24 hr 00:00: mouth [place] tablet 00 daily with Medical breakfast. Branch pantoprazol 2021-09 Yes [id number] 40mg Take 1 [facility] e 40 mg EC 1-01 tablet by ity of tablet 00:00: mouth in [place] 00 the Medical morning. Branch rosuvastati 2021-09 Yes [id number] 10mg Take 1 [facility] n 10 mg 1-01 tablet by ity of tablet 00:00: mouth at [place] 00 bedtime. Medical Branch SUMAtriptan 2021-09 Yes [id number] 50mg Take 1 [facility] 50 mg 1-01 tablet by ity of tablet 00:00: mouth as [place] 00 needed for Medical Migraine. Branch diltiazem 2021-09 Yes [id number] 120mg Take 1 U nivers 120 mg 24 1-01 capsule by ity of hr capsule 00:00: mouth in [place] as 00 the Medical morning Branch and 1 capsule in the evening. fluticasone 2021-09 Yes [id number] 2{puff} Inhale 2 [facility] propionate 1-01 Puffs ity of (FLOVENT 00:00: every 12 [place] HFA) 110 00 (twelve) Medical mcg/actuati hours. Branch on inhaler Rinse mouth after each use. metformin 2021-09 Yes [id number] 500mg Take 1 U nivers ER 500 mg 1-01 tablet by ity o f 24 hr 00:00: mouth [place] tablet 00 daily with Medical breakfast. Branch pantoprazol 2021-09 Yes [id number] 40mg Take 1 [facility] e 40 mg EC 1-01 tablet by ity of tablet 00:00: mouth in [place] 00 the Medical morning. Branch rosuvastati 2021-09 Yes [id number] 10mg Take 1 [facility] n 10 mg 1-01 tablet by ity of tablet 00:00: mouth at [place] [address] bedtime. Medical Branch SUMAtriptan 2021-09 Yes [id number] 50mg Take 1 [facility] 50 mg 1-01 tablet by ity of tablet 00:00: mouth as [place] 00 needed for Medical Migraine. Branch diltiazem 2021-09 Yes [id number] 120mg Take 1 U nivers 120 mg 24 1-01 capsule by ity of hr capsule 00:00: mouth in [place] as 00 the Medical morning Branch and 1 capsule in the evening. fluticasone 2021-09 Yes [id number] 2{puff} Inhale 2 [facility] propionate 1-01 Puffs ity of (FLOVENT 00:00: every 12 [place] HFA) 110 00 (twelve) Medical mcg/actuati hours. Branch on inhaler Rinse mouth after each use. metformin 2021-09 Yes [id number] 500mg Take 1 U nivers ER 500 mg 1-01 tablet by ity o f 24 hr 00:00: mouth [place] tablet 00 daily with Medical breakfast. Branch pantoprazol 2021-09 Yes [id number] 40mg Take 1 [facility] e 40 mg EC 1-01 tablet by ity of tablet 00:00: mouth in [place] 00 the Medical morning. Branch rosuvastati 2021-09 Yes [id number] 10mg Take 1 [facility] n 10 mg 1-01 tablet by ity of tablet 00:00: mouth at [place] [address] bedtime. Medical Branch SUMAtriptan 2021-09 Yes [id number] 50mg Take 1 [facility] 50 mg 1-01 tablet by ity of tablet 00:00: mouth as [place] 00 needed for Medical Migraine. Branch diltiazem 2021-09 Yes [id number] 120mg Take 1 U nivers 120 mg 24 1-01 capsule by ity of hr capsule 00:00: mouth in [facility] as 00 the Medical morning Branch and 1 capsule in the evening. fluticasone 2021-09 Yes [id number] 2{puff} Inhale 2 [facility] propionate 1-01 Puffs ity of (FLOVENT 00:00: every 12 [place] HFA) 110 00 (twelve) Medical mcg/actuati hours. Branch on inhaler Rinse mouth after each use. metformin 2021-09 Yes [id number] 500mg Take 1 U nivers ER 500 mg 1-01 tablet by ity o f 24 hr 00:00: mouth [place] tablet 00 daily with Medical breakfast. Branch pantoprazol 2021-09 Yes [id number] 40mg Take 1 [facility] e 40 mg EC 1-01 tablet by ity of tablet 00:00: mouth in [place] 00 the Medical morning. Branch rosuvastati 2021-09 Yes [id number] 10mg Take 1 [facility] n 10 mg 1-01 tablet by ity of tablet 00:00: mouth at [place] [address] bedtime. Medical Branch SUMAtriptan 2021-09 Yes [id number] 50mg Take 1 [facility] 50 mg 1-01 tablet by ity of tablet 00:00: mouth as [place] 00 needed for Medical Migraine. Branch diltiazem 2021-09 Yes [id number] 120mg Take 1 U nivers 120 mg 24 1-01 capsule by ity of hr capsule 00:00: mouth in [place] as 00 the Medical morning Branch and 1 capsule in the evening. fluticasone 2021-09 Yes [id number] 2{puff} Inhale 2 [facility] propionate 1-01 Puffs ity of (FLOVENT 00:00: every 12 [place] HFA) 110 00 (twelve) Medical mcg/actuati hours. Branch on inhaler Rinse mouth after each use. metformin 2021-09 Yes [id number] 500mg Take 1 U nivers ER 500 mg 1-01 tablet by ity o f 24 hr 00:00: mouth [place] tablet 00 daily with Medical breakfast. Branch pantoprazol 2021-09 Yes [id number] 40mg Take 1 [facility] e 40 mg EC 1-01 tablet by ity of tablet 00:00: mouth in [place] 00 the Medical morning. Branch rosuvastati 2021-09 Yes [id number] 10mg Take 1 [facility] n 10 mg 1-01 tablet by ity of tablet 00:00: mouth at [place] 00 bedtime. Medical Branch SUMAtriptan 2021-09 Yes [id number] 50mg Take 1 [facility] 50 mg 1-01 tablet by ity of tablet 00:00: mouth as [place] 00 needed for Medical Migraine. Branch diltiazem 2021-09 Yes [id number] 120mg Take 1 U nivers 120 mg 24 1-01 capsule by ity of hr capsule 00:00: mouth in [place] as 00 the Medical morning Branch and 1 capsule in the evening. fluticasone 2021-09 Yes [id number] 2{puff} Inhale 2 [facility] propionate 1-01 Puffs ity of (FLOVENT 00:00: every 12 [facility]) 110 00 (twelve) Medical mcg/actuati hours. Branch on inhaler Rinse mouth after each use. metformin 2021-09 Yes [id number] 500mg Take 1 U nivers ER 500 mg 1-01 tablet by ity o f 24 hr 00:00: mouth [place] tablet 00 daily with Medical breakfast. Branch pantoprazol 2021-09 Yes [id number] 40mg Take 1 [facility] e 40 mg EC 1-01 tablet by ity of tablet 00:00: mouth in [place] 00 the Medical morning. Branch rosuvastati 2021-09 Yes [id number] 10mg Take 1 [facility] n 10 mg 1-01 tablet by ity of tablet 00:00: mouth at [place] [address] bedtime. Medical Branch SUMAtriptan 2021-09 Yes [id number] 50mg Take 1 [facility] 50 mg 1-01 tablet by ity of tablet 00:00: mouth as [place] 00 needed for Medical Migraine. Branch diltiazem 2021-09 Yes [id number] 120mg Take 1 U nivers 120 mg 24 1-01 capsule by ity of hr capsule 00:00: mouth in [place] as 00 the Medical morning Branch and 1 capsule in the evening. fluticasone 2021-09 Yes [id number] 2{puff} Inhale 2 [facility] propionate 1-01 Puffs ity of (FLOVENT 00:00: every 12 [facility]) 110 00 (twelve) Medical mcg/actuati hours. Branch on inhaler Rinse mouth after each use. metformin 2021-09 Yes [id number] 500mg Take 1 U nivers ER 500 mg 1-01 tablet by ity o f 24 hr 00:00: mouth [place] tablet 00 daily with Medical breakfast. Branch pantoprazol 2021-09 Yes [id number] 40mg Take 1 [facility] e 40 mg EC 1-01 tablet by ity of tablet 00:00: mouth in [place] 00 the Medical morning. Branch rosuvastati 2021-09 Yes [id number] 10mg Take 1 [facility] n 10 mg 1-01 tablet by ity of tablet 00:00: mouth at [place] 00 bedtime. Medical Branch SUMAtriptan 2021-09 Yes [id number] 50mg Take 1 [facility] 50 mg 1-01 tablet by ity of tablet 00:00: mouth as [place] 00 needed for Medical Migraine. Branch diltiazem 2021-09 Yes [id number] 120mg Take 1 U nivers 120 mg 24 1-01 capsule by ity of hr capsule 00:00: mouth in [place] as 00 the Medical morning Branch and 1 capsule in the evening. fluticasone 2021-09 Yes [id number] 2{puff} Inhale 2 [facility] propionate 1-01 Puffs ity of (FLOVENT 00:00: every 12 [place] HFA) 110 00 (twelve) Medical mcg/actuati hours. Branch on inhaler Rinse mouth after each use. metformin 2021-09 Yes [id number] 500mg Take 1 U nivers ER 500 mg 1-01 tablet by ity o f 24 hr 00:00: mouth [place] tablet 00 daily with Medical breakfast. Branch pantoprazol 2021-09 Yes [id number] 40mg Take 1 [facility] e 40 mg EC 09-26 tablet by ity of tablet 00:00: mouth in [place] 00 the Medical morning. Branch rosuvastati 2021-09 Yes [id number] 10mg Take 1 [facility] n 10 mg 09-26 tablet by ity of tablet 00:00: mouth at [place] 00 bedtime. Medical Branch SUMAtriptan 2021-09 Yes [id number] 50mg Take 1 [facility] 50 mg 09-26 tablet by ity of tablet 00:00: mouth as [place] 00 needed for Medical Migraine. Branch pregabalin 2021-09- No [id number] 150mg Take 1 [facility] 150 mg 09-26 capsule by ity of capsule 00:00: 00:00 mouth in [place] 00 :00 the Medical morning Branch and 1 capsule at noon and 1 capsule in the evening. levothyroxi 2021-09- No [id number] 50ug Take 1 [facility] ne 50 mcg 09-26 tablet by ity of tablet 00:00: 00:00 mouth [place] 00 :00 every Medical morning. Branch levothyroxi 2021-09- No [id number] 50ug Take 1 [facility] ne 50 mcg 09-26 tablet by ity of tablet 00:00: 00:00 mouth [place] 00 :00 every Medical morning. Branch busPIRone 2021-09 Yes [id number] 20mg Take 2 [facility] [place] 10 mg 0-13 tablets by ity of tablet 00:00: mouth in [place] 00 the Medical morning Branch and 2 tablets in the evening. diltiazem 2021-09 Yes [id number] 120mg Take 1 [facility] nivers 120 mg 24 0-13 capsule by [facility] of hr capsule 00:00: mouth in [place] 00 the Medical morning Branch and 1 capsule in the evening. levothyroxi 2021-09 Yes [id number] 50ug Take 1 [facility] ne 50 mcg 0-13 tablet by ity o f tablet 00:00: mouth [place] 00 every Medical morning. Branch losartan 50 2021-09 Yes [id number] 50mg Take 1 [facility] mg tablet 0-13 tablet by ity o f 00:00: mouth in [place] 00 the Medical morning Branch and 1 tablet in the evening. metformin 2021-09 Yes [id number] 500mg Take 1 [facility] nivers ER 500 mg 0-13 tablet by ity o f 24 hr 00:00: mouth [place] tablet 00 daily with Medical breakfast. Branch STOP REGULAR METFORMIN. mirabegron 2021-09 Yes [id number] 50mg Take 1 [facility] (MYRBETRIQ) 0-13 tablet by ity of 50 mg 00:00: mouth in [place] tablet 00 the Medical morning. Branch semaglutide 2021-09 Yes [id number] Inject [facility] (OZEMPIC) 0-13 0.25 mg ity of 0.25 mg or 00:00: under the [place] 0.5 mg(2 00 skin Medical mg/1.5 mL) weekly. Branch PnIj pantoprazol 2021-09 Yes [id number] 40mg Take 1 [facility] e 40 mg EC 0-13 tablet by ity of tablet 00:00: mouth in [place] 00 the Medical morning. Branch pregabalin 2021-09 Yes [id number] 150mg Take 1 [facility] 150 mg 0-13 capsule by ity of capsule 00:00: mouth in [place] 00 the Medical morning Branch and 1 capsule at noon and 1 capsule in the evening. rosuvastati 2021-09 Yes [id number] 10mg Take 1 [facility] n 10 mg 0-13 tablet by ity of tablet 00:00: mouth at [place] 00 bedtime. Medical Branch SUMAtriptan 2021-09 Yes [id number] 50mg Take 1 [facility] 50 mg 0-13 tablet by ity of tablet 00:00: mouth as [place] 00 needed for Medical Migraine. Branch topiramate 2021-09 Yes [id number] 75mg Take 3 [facility] 25 mg 0-13 tablets by ity of tablet 00:00: mouth in [place] 00 the Medical morning Branch and 3 tablets in the evening. busPIRone 2021-09 Yes [id number] 20mg Take 2 [facility] [place] 10 mg 0-13 tablets by ity of tablet 00:00: mouth in [place] 00 the Medical morning Branch and 2 tablets in the evening. losartan 50 2021-09 Yes [id number] 50mg Take 1 [facility] mg tablet 0-13 tablet by ity o f 00:00: mouth in [place] 00 the Medical morning Branch and 1 tablet in the evening. mirabegron 2021-09 Yes [id number] 50mg Take 1 [facility] (MYRBETRIQ) 0-13 tablet by ity of 50 mg 00:00: mouth in [place] tablet 00 the Medical morning. Branch semaglutide 2021-09 Yes [id number] Inject [facility] (OZEMPIC) 0-13 0.25 mg ity of 0.25 mg or 00:00: under the [place] 0.5 mg(2 00 skin Medical mg/1.5 mL) weekly. Branch PnIj topiramate 2021-09 Yes [id number] 75mg Take 3 [facility] 25 mg 0-13 tablets by ity of tablet 00:00: mouth in [place] 00 the Medical morning Branch and 3 tablets in the evening. busPIRone 2021-09 Yes [id number] 20mg Take 2 [facility] [place] 10 mg 0-13 tablets by it[facility] of tablet 00:00: mouth in [place] 00 the Medical morning Branch and 2 tablets in the evening. losartan 50 2021-09 Yes [id number] 50mg Take 1 [facility] mg tablet 0-13 tablet by ity o f 00:00: mouth in [place] 00 the Medical morning Branch and 1 tablet in the evening. mirabegron 2021-09 Yes [id number] 50mg Take 1 [facility] (MYRBETRIQ) 0-13 tablet by ity of 50 mg 00:00: mouth in [place] tablet 00 the Medical morning. Branch semaglutide 2021-09 Yes [id number] Inject [facility] (OZEMPIC) 0-13 0.25 mg ity of 0.25 mg or 00:00: under the [place] 0.5 mg(2 00 skin Medical mg/1.5 mL) weekly. Branch PnIj topiramate 2021-09 Yes [id number] 75mg Take 3 [facility] 25 mg 0-13 tablets by ity of tablet 00:00: mouth in [place] 00 the Medical morning Branch and 3 tablets in the evening. busPIRone 2021-09 Yes [id number] 20mg Take 2 [facility] [place] 10 mg 0-13 tablets by [facility] of tablet 00:00: mouth in [place] 00 the Medical morning Branch and 2 tablets in the evening. losartan 50 2021-09 Yes [id number] 50mg Take 1 [facility] mg tablet 0-13 tablet by ity o f 00:00: mouth in [place] 00 the Medical morning Branch and 1 tablet in the evening. mirabegron 2021-09 Yes [id number] 50mg Take 1 [facility] (MYRBETRIQ) 0-13 tablet by ity of 50 mg 00:00: mouth in [place] tablet 00 the Medical morning. Branch semaglutide 2021-09 Yes [id number] Inject [facility] (OZEMPIC) 0-13 0.25 mg ity of 0.25 mg or 00:00: under the [place] 0.5 mg(2 00 skin Medical mg/1.5 mL) weekly. Branch PnIj topiramate 2021-09 Yes [id number] 75mg Take 3 [facility] 25 mg 0-13 tablets by ity of tablet 00:00: mouth in [place] 00 the Medical morning Branch and 3 tablets in the evening. busPIRone 2021-09 Yes [id number] 20mg Take 2 [facility] [place] 10 mg 0-13 tablets by [facility] of tablet 00:00: mouth in [place] 00 the Medical morning Branch and 2 tablets in the evening. losartan 50 2021-09 Yes [id number] 50mg Take 1 [facility] mg tablet 0-13 tablet by ity o f 00:00: mouth in [place] 00 the Medical morning Branch and 1 tablet in the evening. mirabegron 2021-09 Yes [id number] 50mg Take 1 [facility] (MYRBETRIQ) 0-13 tablet by ity of 50 mg 00:00: mouth in [place] tablet 00 the Medical morning. Branch semaglutide 2021-09 Yes [id number] Inject [facility] (OZEMPIC) 0-13 0.25 mg ity of 0.25 mg or 00:00: under the [place] 0.5 mg(2 00 skin Medical mg/1.5 mL) weekly. Branch PnIj topiramate 2021-09 Yes [id number] 75mg Take 3 [facility] 25 mg 0-13 tablets by ity of tablet 00:00: mouth in [place] 00 the Medical morning Branch and 3 tablets in the evening. busPIRone 2021-09 Yes [id number] 20mg Take 2 [facility] [place] 10 mg 0-13 tablets by [facility] of tablet 00:00: mouth in [place] 00 the Medical morning Branch and 2 tablets in the evening. losartan 50 2021-09 Yes [id number] 50mg Take 1 [facility] mg tablet 0-13 tablet by ity o f 00:00: mouth in [place] 00 the Medical morning Branch and 1 tablet in the evening. mirabegron 2021-09 Yes [id number] 50mg Take 1 [facility] (MYRBETRIQ) 0-13 tablet by ity of 50 mg 00:00: mouth in [place] tablet 00 the Medical morning. Branch semaglutide 2021-09 Yes [id number] Inject [facility] (OZEMPIC) 0-13 0.25 mg ity of 0.25 mg or 00:00: under the [place] 0.5 mg(2 00 skin Medical mg/1.5 mL) weekly. Branch PnIj topiramate 2021-09 Yes [id number] 75mg Take 3 [facility] 25 mg 0-13 tablets by ity of tablet 00:00: mouth in [place] 00 the Medical morning Branch and 3 tablets in the evening. busPIRone 2021-09 Yes [id number] 20mg Take 2 [facility] [place] 10 mg 0-13 tablets by it[facility] of tablet 00:00: mouth in [place] 00 the Medical morning Branch and 2 tablets in the evening. losartan 50 2021-09 Yes [id number] 50mg Take 1 [facility] mg tablet 0-13 tablet by ity o f 00:00: mouth in [place] 00 the Medical morning Branch and 1 tablet in the evening. mirabegron 2021-09 Yes [id number] 50mg Take 1 [facility] (MYRBETRIQ) 0-13 tablet by ity of 50 mg 00:00: mouth in [place] tablet 00 the Medical morning. Branch semaglutide 2021-09 Yes [id number] Inject [facility] (OZEMPIC) 0-13 0.25 mg ity of 0.25 mg or 00:00: under the [place] 0.5 mg(2 00 skin Medical mg/1.5 mL) weekly. Branch PnIj topiramate 2021-09 Yes [id number] 75mg Take 3 [facility] 25 mg 0-13 tablets by ity of tablet 00:00: mouth in [place] 00 the Medical morning Branch and 3 tablets in the evening. busPIRone 2021-09 Yes [id number] 20mg Take 2 [facility] [place] 10 mg 0-13 tablets by [facility] of tablet 00:00: mouth in [place] 00 the Medical morning Branch and 2 tablets in the evening. losartan 50 2021-09 Yes [id number] 50mg Take 1 [facility] mg tablet 0-13 tablet by ity o f 00:00: mouth in [place] 00 the Medical morning Branch and 1 tablet in the evening. mirabegron 2021-09 Yes [id number] 50mg Take 1 [facility] (MYRBETRIQ) 0-13 tablet by ity of 50 mg 00:00: mouth in [place] tablet 00 the Medical morning. Branch semaglutide 2021-09 Yes [id number] Inject [facility] (OZEMPIC) 0-13 0.25 mg ity of 0.25 mg or 00:00: under the [place] 0.5 mg(2 00 skin Medical mg/1.5 mL) weekly. Branch PnIj topiramate 2021-09 Yes [id number] 75mg Take 3 [facility] 25 mg 0-13 tablets by ity of tablet 00:00: mouth in [place] 00 the Medical morning Branch and 3 tablets in the evening. busPIRone 2021-09 Yes [id number] 20mg Take 2 [facility] [place] 10 mg 0-13 tablets by it[facility] of tablet 00:00: mouth in [place] 00 the Medical morning Branch and 2 tablets in the evening. losartan 50 2021-09 Yes [id number] 50mg Take 1 [facility] mg tablet 0-13 tablet by ity o f 00:00: mouth in [place] 00 the Medical morning Branch and 1 tablet in the evening. mirabegron 2021-09 Yes [id number] 50mg Take 1 [facility] (MYRBETRIQ) 0-13 tablet by ity of 50 mg 00:00: mouth in [place] tablet 00 the Medical morning. Branch semaglutide 2021-09 Yes [id number] Inject [facility] (OZEMPIC) 0-13 0.25 mg ity of 0.25 mg or 00:00: under the [place] 0.5 mg(2 00 skin Medical mg/1.5 mL) weekly. Branch PnIj topiramate 2021-09 Yes [id number] 75mg Take 3 [facility] 25 mg 0-13 tablets by ity of tablet 00:00: mouth in [place] 00 the Medical morning Branch and 3 tablets in the evening. busPIRone 2021-09 Yes [id number] 20mg Take 2 [facility] [place] 10 mg 0-13 tablets by ity of tablet 00:00: mouth in [place] 00 the Medical morning Branch and 2 tablets in the evening. losartan 50 2021-09 Yes [id number] 50mg Take 1 [facility] mg tablet 0-13 tablet by ity o f 00:00: mouth in [place] 00 the Medical morning Branch and 1 tablet in the evening. mirabegron 2021-09 Yes [id number] 50mg Take 1 [facility] (MYRBETRIQ) 0-13 tablet by ity of 50 mg 00:00: mouth in [place] tablet 00 the Medical morning. Branch semaglutide 2021-09 Yes [id number] Inject [facility] (OZEMPIC) 0-13 0.25 mg ity of 0.25 mg or 00:00: under the [place] 0.5 mg(2 00 skin Medical mg/1.5 mL) weekly. Branch PnIj topiramate 2021-09 Yes [id number] 75mg Take 3 [facility] 25 mg 0-13 tablets by ity of tablet 00:00: mouth in [place] 00 the Medical morning Branch and 3 tablets in the evening. busPIRone 2021-09 Yes [id number] 20mg Take 2 [facility] [place] 10 mg 0-13 tablets by it[facility] of tablet 00:00: mouth in [place] 00 the Medical morning Branch and 2 tablets in the evening. losartan 50 2021-09 Yes [id number] 50mg Take 1 [facility] mg tablet 0-13 tablet by ity o f 00:00: mouth in [place] 00 the Medical morning Branch and 1 tablet in the evening. mirabegron 2021-09 Yes [id number] 50mg Take 1 [facility] (MYRBETRIQ) 0-13 tablet by ity of 50 mg 00:00: mouth in [place] tablet 00 the Medical morning. Branch semaglutide 2021-09 Yes [id number] Inject [facility] (OZEMPIC) 0-13 0.25 mg ity of 0.25 mg or 00:00: under the [place] 0.5 mg(2 00 skin Medical mg/1.5 mL) weekly. Branch PnIj topiramate 2021-09 Yes [id number] 75mg Take 3 [facility] 25 mg 0-13 tablets by ity of tablet 00:00: mouth in [place] 00 the Medical morning Branch and 3 tablets in the evening. busPIRone 2021-09 Yes [id number] 20mg Take 2 [facility] [place] 10 mg 0-13 tablets by ity of tablet 00:00: mouth in [place] 00 the Medical morning Branch and 2 tablets in the evening. losartan 50 2021-09 Yes [id number] 50mg Take 1 [facility] mg tablet 0-13 tablet by ity o f 00:00: mouth in [place] 00 the Medical morning Branch and 1 tablet in the evening. mirabegron 2021-09 Yes [id number] 50mg Take 1 [facility] (MYRBETRIQ) 0-13 tablet by ity of 50 mg 00:00: mouth in [place] tablet 00 the Medical morning. Branch semaglutide 2021-09 Yes [id number] Inject [facility] (OZEMPIC) 0-13 0.25 mg ity of 0.25 mg or 00:00: under the [place] 0.5 mg(2 00 skin Medical mg/1.5 mL) weekly. Branch PnIj topiramate 2021-09 Yes [id number] 75mg Take 3 [facility] 25 mg 0-13 tablets by ity of tablet 00:00: mouth in [place] 00 the Medical morning Branch and 3 tablets in the evening. busPIRone 2021-09 Yes [id number] 20mg Take 2 [facility] [place] 10 mg 0-13 tablets by ity of tablet 00:00: mouth in [place] 00 the Medical morning Branch and 2 tablets in the evening. losartan 50 2021-09 Yes [id number] 50mg Take 1 [facility] mg tablet 0-13 tablet by ity o f 00:00: mouth in [place] 00 the Medical morning Branch and 1 tablet in the evening. mirabegron 2021-09 Yes [id number] 50mg Take 1 [facility] (MYRBETRIQ) 0-13 tablet by ity of 50 mg 00:00: mouth in [place] tablet 00 the Medical morning. Branch semaglutide 2021-09 Yes [id number] Inject [facility] (OZEMPIC) 0-13 0.25 mg ity of 0.25 mg or 00:00: under the [place] 0.5 mg(2 00 skin Medical mg/1.5 mL) weekly. Branch PnIj topiramate 2021-09 Yes [id number] 75mg Take 3 [facility] 25 mg 0-13 tablets by ity of tablet 00:00: mouth in [place] 00 the Medical morning Branch and 3 tablets in the evening. busPIRone 2021-09 Yes [id number] 20mg Take 2 [facility] [place] 10 mg 0-13 tablets by it[facility] of tablet 00:00: mouth in [place] 00 the Medical morning Branch and 2 tablets in the evening. losartan 50 2021-09 Yes [id number] 50mg Take 1 [facility] mg tablet 0-13 tablet by ity o f 00:00: mouth in [place] 00 the Medical morning Branch and 1 tablet in the evening. mirabegron 2021-09 Yes [id number] 50mg Take 1 [facility] (MYRBETRIQ) 0-13 tablet by ity of 50 mg 00:00: mouth in [place] tablet 00 the Medical morning. Branch semaglutide 2021-09 Yes [id number] Inject [facility] (OZEMPIC) 0-13 0.25 mg ity of 0.25 mg or 00:00: under the [place] 0.5 mg(2 00 skin Medical mg/1.5 mL) weekly. Branch PnIj topiramate 2021-09 Yes [id number] 75mg Take 3 [facility] 25 mg 0-13 tablets by ity of tablet 00:00: mouth in [place] 00 the Medical morning Branch and 3 tablets in the evening. busPIRone 2021-09 Yes [id number] 20mg Take 2 [facility] [place] 10 mg 0-13 tablets by ity of tablet 00:00: mouth in [place] 00 the Medical morning Branch and 2 tablets in the evening. losartan 50 2021-09 Yes [id number] 50mg Take 1 [facility] mg tablet 0-13 tablet by ity o f 00:00: mouth in [place] 00 the Medical morning Branch and 1 tablet in the evening. mirabegron 2021-09 Yes [id number] 50mg Take 1 [facility] (MYRBETRIQ) 0-13 tablet by ity of 50 mg 00:00: mouth in [place] tablet 00 the Medical morning. Branch semaglutide 2021-09 Yes [id number] Inject [facility] (OZEMPIC) 0-13 0.25 mg ity of 0.25 mg or 00:00: under the [place] 0.5 mg(2 00 skin Medical mg/1.5 mL) weekly. Branch PnIj topiramate 2021-09 Yes [id number] 75mg Take 3 [facility] 25 mg 0-13 tablets by ity of tablet 00:00: mouth in [place] 00 the Medical morning Branch and 3 tablets in the evening. busPIRone 2021-09 Yes [id number] 20mg Take 2 [facility] [place] 10 mg 0-13 tablets by ity of tablet 00:00: mouth in [place] 00 the Medical morning Branch and 2 tablets in the evening. losartan 50 2021-09 Yes [id number] 50mg Take 1 [facility] mg tablet 0-13 tablet by ity o f 00:00: mouth in [place] 00 the Medical morning Branch and 1 tablet in the evening. mirabegron 2021-09 Yes [id number] 50mg Take 1 [facility] (MYRBETRIQ) 0-13 tablet by ity of 50 mg 00:00: mouth in [place] tablet 00 the Medical morning. Branch semaglutide 2021-09 Yes [id number] Inject [facility] (OZEMPIC) 0-13 0.25 mg ity of 0.25 mg or 00:00: under the [place] 0.5 mg(2 00 skin Medical mg/1.5 mL) weekly. Branch PnIj topiramate 2021-09 Yes [id number] 75mg Take 3 [facility] 25 mg 0-13 tablets by ity of tablet 00:00: mouth in [place] 00 the Medical morning Branch and 3 tablets in the evening. busPIRone 2021-09 Yes [id number] 20mg Take 2 [facility] [place] 10 mg 0-13 tablets by it[facility] of tablet 00:00: mouth in [place] 00 the Medical morning Branch and 2 tablets in the evening. losartan 50 2021-09 Yes [id number] 50mg Take 1 [facility] mg tablet 0-13 tablet by ity o f 00:00: mouth in [place] 00 the Medical morning Branch and 1 tablet in the evening. mirabegron 2021-09 Yes [id number] 50mg Take 1 [facility] (MYRBETRIQ) 0-13 tablet by ity of 50 mg 00:00: mouth in [place] tablet 00 the Medical morning. Branch semaglutide 2021-09 Yes [id number] Inject [facility] (OZEMPIC) 0-13 0.25 mg ity of 0.25 mg or 00:00: under the [place] 0.5 mg(2 00 skin Medical mg/1.5 mL) weekly. Branch PnIj topiramate 2021-09 Yes [id number] 75mg Take 3 [facility] 25 mg 0-13 tablets by ity of tablet 00:00: mouth in [place] 00 the Medical morning Branch and 3 tablets in the evening. busPIRone 2021-09 Yes [id number] 20mg Take 2 [facility] [place] 10 mg 0-13 tablets by it[facility] of tablet 00:00: mouth in [place] 00 the Medical morning Branch and 2 tablets in the evening. losartan 50 2021-09 Yes [id number] 50mg Take 1 [facility] mg tablet 0-13 tablet by ity o f 00:00: mouth in [place] 00 the Medical morning Branch and 1 tablet in the evening. mirabegron 2021-09 Yes [id number] 50mg Take 1 [facility] (MYRBETRIQ) 0-13 tablet by ity of 50 mg 00:00: mouth in [place] tablet 00 the Medical morning. Branch semaglutide 2021-09 Yes [id number] Inject [facility] (OZEMPIC) 0-13 0.25 mg ity of 0.25 mg or 00:00: under the [place] 0.5 mg(2 00 skin Medical mg/1.5 mL) weekly. Branch PnIj topiramate 2021-09 Yes [id number] 75mg Take 3 [facility] 25 mg 0-13 tablets by ity of tablet 00:00: mouth in [place] 00 the Medical morning Branch and 3 tablets in the evening. busPIRone 2021-09 Yes [id number] 20mg Take 2 [facility] [place] 10 mg 0-13 tablets by it[facility] of tablet 00:00: mouth in [place] 00 the Medical morning Branch and 2 tablets in the evening. losartan 50 2021-09 Yes [id number] 50mg Take 1 [facility] mg tablet 0-13 tablet by ity o f 00:00: mouth in [place] 00 the Medical morning Branch and 1 tablet in the evening. mirabegron 2021-09 Yes [id number] 50mg Take 1 [facility] (MYRBETRIQ) 0-13 tablet by ity of 50 mg 00:00: mouth in [place] tablet 00 the Medical morning. Branch semaglutide 2021-09 Yes [id number] Inject [facility] (OZEMPIC) 0-13 0.25 mg ity of 0.25 mg or 00:00: under the [place] 0.5 mg(2 00 skin Medical mg/1.5 mL) weekly. Branch PnIj topiramate 2021-09 Yes [id number] 75mg Take 3 [facility] 25 mg 0-13 tablets by ity of tablet 00:00: mouth in [place] 00 the Medical morning Branch and 3 tablets in the evening. busPIRone 2021-09 Yes [id number] 20mg Take 2 [facility] [place] 10 mg 0-13 tablets by [facility] of tablet 00:00: mouth in [place] 00 the Medical morning Branch and 2 tablets in the evening. losartan 50 2021-09 Yes [id number] 50mg Take 1 [facility] mg tablet 0-13 tablet by ity o f 00:00: mouth in [place] 00 the Medical morning Branch and 1 tablet in the evening. mirabegron 2021-09 Yes [id number] 50mg Take 1 [facility] (MYRBETRIQ) 0-13 tablet by ity of 50 mg 00:00: mouth in [place] tablet 00 the Medical morning. Branch semaglutide 2021-09 Yes [id number] Inject [facility] (OZEMPIC) 0-13 0.25 mg ity of 0.25 mg or 00:00: under the [place] 0.5 mg(2 00 skin Medical mg/1.5 mL) weekly. Branch PnIj topiramate 2021-09 Yes [id number] 75mg Take 3 [facility] 25 mg 0-13 tablets by ity of tablet 00:00: mouth in [place] 00 the Medical morning Branch and 3 tablets in the evening. busPIRone 2021-09 Yes [id number] 20mg Take 2 [facility] [place] 10 mg 0-13 tablets by it[facility] of tablet 00:00: mouth in [place] 00 the Medical morning Branch and 2 tablets in the evening. losartan 50 2021-09 Yes [id number] 50mg Take 1 [facility] mg tablet 0-13 tablet by ity o f 00:00: mouth in [place] 00 the Medical morning Branch and 1 tablet in the evening. mirabegron 2021-09 Yes [id number] 50mg Take 1 [facility] (MYRBETRIQ) 0-13 tablet by ity of 50 mg 00:00: mouth in [place] tablet 00 the Medical morning. Branch semaglutide 2021-09 Yes [id number] Inject [facility] (OZEMPIC) 0-13 0.25 mg ity of 0.25 mg or 00:00: under the [place] 0.5 mg(2 00 skin Medical mg/1.5 mL) weekly. Branch PnIj topiramate 2021-09 Yes [id number] 75mg Take 3 [facility] 25 mg 0-13 tablets by ity of tablet 00:00: mouth in [place] 00 the Medical morning Branch and 3 tablets in the evening. busPIRone 2021-09 Yes [id number] 20mg Take 2 [facility] [place] 10 mg 0-13 tablets by [facility] of tablet 00:00: mouth in [place] 00 the Medical morning Branch and 2 tablets in the evening. losartan 50 2021-09 Yes [id number] 50mg Take 1 [facility] mg tablet 0-13 tablet by ity o f 00:00: mouth in [place] 00 the Medical morning Branch and 1 tablet in the evening. mirabegron 2021-09 Yes [id number] 50mg Take 1 [facility] (MYRBETRIQ) 0-13 tablet by ity of 50 mg 00:00: mouth in [place] tablet 00 the Medical morning. Branch semaglutide 2021-09 Yes [id number] Inject [facility] (OZEMPIC) 0-13 0.25 mg ity of 0.25 mg or 00:00: under the [place] 0.5 mg(2 00 skin Medical mg/1.5 mL) weekly. Branch PnIj topiramate 2021-09 Yes [id number] 75mg Take 3 [facility] 25 mg 0-13 tablets by [facility] of tablet 00:00: mouth in [place] 00 the Medical morning Branch and 3 tablets in the evening. busPIRone 2021-09 Yes [id number] 20mg Take 2 [facility] [place] 10 mg 0-13 tablets by [facility] of tablet 00:00: mouth in [place] 00 the Medical morning Branch and 2 tablets in the evening. losartan 50 2021-09 Yes [id number] 50mg Take 1 [facility] mg tablet 0-13 tablet by ity o f 00:00: mouth in [place] 00 the Medical morning Branch and 1 tablet in the evening. mirabegron 2021-09 Yes [id number] 50mg Take 1 [facility] (MYRBETRIQ) 0-13 tablet by ity of 50 mg 00:00: mouth in [place] tablet 00 the Medical morning. Branch semaglutide 2021-09 Yes [id number] Inject [facility] (OZEMPIC) 0-13 0.25 mg ity of 0.25 mg or 00:00: under the [place] 0.5 mg(2 00 skin Medical mg/1.5 mL) weekly. Branch PnIj topiramate 2021-09 Yes [id number] 75mg Take 3 [facility] 25 mg 0-13 tablets by ity of tablet 00:00: mouth in [place] 00 the Medical morning Branch and 3 tablets in the evening. losartan 50 2021-09 Yes [id number] 50mg Take 1 [facility] mg tablet 0-13 tablet by ity o f 00:00: mouth in [place] 00 the Medical morning Branch and 1 tablet in the evening. mirabegron 2021-09 Yes [id number] 50mg Take 1 [facility] (MYRBETRIQ) 0-13 tablet by ity of 50 mg 00:00: mouth in [place] tablet 00 the Medical morning. Branch semaglutide 2021-09 Yes [id number] Inject [facility] (OZEMPIC) 0-13 0.25 mg ity of 0.25 mg or 00:00: under the [place] 0.5 mg(2 00 skin Medical mg/1.5 mL) weekly. Branch PnIj topiramate 2021-09 Yes [id number] 75mg Take 3 [facility] 25 mg 0-13 tablets by it[facility] of tablet 00:00: mouth in [place] 00 the Medical morning Branch and 3 tablets in the evening. busPIRone 2021-09- No [id number] 20mg Take 2 [facility] n[facility] 10 mg 0-10-12 tablets by [facility] of tablet 00:00: 00:00 mouth in [place] 00 :00 the Medical morning Branch and 2 tablets in the evening. diltiazem 2021-09- No [id number] 120mg Take 1 [facility] 120 mg 24 07-27 capsule by [facility] of hr capsule 00:00: 00:00 mouth in [place] 00 :00 the Medical morning Branch and 1 capsule in the evening. levothyroxi 2021-09- No [id number] 50ug Take 1 [facility] ne 50 mcg 07-27 tablet by [facility] of tablet 00:00: 00:00 mouth [place] 00 :00 every Medical morning. Branch metformin 2021-09- No [id number] 500mg Take 1 [facility] ER 500 mg 07-27 tablet by [facility] of 24 hr 00:00: 00:00 mouth [place] tablet 00 :00 daily with Medical breakfast. Branch STOP REGULAR METFORMIN. pantoprazol 2021-09- No [id number] 40mg Take 1 [facility] e 40 mg EC 07-27 tablet by [facility] of tablet 00:00: 00:00 mouth in [place] 00 :00 the Medical morning. Branch pregabalin 2021-09- No [id number] 150mg Take 1 [facility] 150 mg 07-27 capsule by [facility] of capsule 00:00: 00:00 mouth in [place] 00 :00 the Medical morning Branch and 1 capsule at noon and 1 capsule in the evening. rosuvastati 2021-09- No [id number] 10mg Take 1 [facility] n 10 mg 07-27 tablet by [facility] of tablet 00:00: 00:00 mouth at [place] 00 :00 bedtime. Medical Branch SUMAtriptan 2021-09- No [id number] 50mg Take 1 [facility] 50 mg 07-27 tablet by [facility] of tablet 00:00: 00:00 mouth as [place] 00 :00 needed for Medical Migraine. Branch diltiazem 2021-09- No [id number] 120mg Take 1 [facility] 120 mg 24 07-27 capsule by ity of hr capsule 00:00: 00:00 mouth in [facility] 00 :00 the Medical morning Branch and 1 capsule in the evening. levothyroxi 2021-09- No [id number] 50ug Take 1 [facility] ne 50 mcg 07-27 tablet by ity of tablet 00:00: 00:00 mouth [place] 00 :00 every Medical morning. Branch metformin 2021-09- No [id number] 500mg Take 1 [facility] ER 500 mg 07-27 tablet by ity of 24 hr 00:00: 00:00 mouth [place] tablet 00 :00 daily with Medical breakfast. Branch STOP REGULAR METFORMIN. pantoprazol 2021-09- No [id number] 40mg Take 1 [facility] e 40 mg EC 07-27 tablet by ity of tablet 00:00: 00:00 mouth in [place] 00 :00 the Medical morning. Branch pregabalin 2021-09- No [id number] 150mg Take 1 [facility] 150 mg 07-27 capsule by ity of capsule 00:00: 00:00 mouth in [place] 00 :00 the Medical morning Branch and 1 capsule at noon and 1 capsule in the evening. rosuvastati 2021-09- No [id number] 10mg Take 1 [facility] n 10 mg 07-27 tablet by ity of tablet 00:00: 00:00 mouth at [place] 00 :00 bedtime. Medical Branch SUMAtriptan 2021-09- No [id number] 50mg Take 1 [facility] 50 mg 0-13 11-01 tablet by ity of tablet 00:00: 00:00 mouth as [place] 00 :00 needed for Medical Migraine. Branch SUMAtriptan 2021-0 Yes [id number] 50mg Take 1 [facility] 50 mg 9-30 tablet by ity of tablet 00:00: mouth as [place] 00 needed for Medical Migraine. Branch SUMAtriptan 2021-0 Yes [id number] 50mg Take 1 [facility] 50 mg 9-30 tablet by ity of tablet 00:00: mouth as [place] 00 needed for Medical Migraine. Branch SUMAtriptan 0 Yes [id number] 50mg Take 1 [facility] 50 mg 9-30 tablet by ity of tablet 00:00: mouth as [place] 00 needed for Medical Migraine. Branch SUMAtriptan 0 Yes [id number] 50mg Take 1 [facility] 50 mg 9-30 tablet by ity of tablet 00:00: mouth as [place] 00 needed for Medical Migraine. Branch SUMAtriptan 0 Yes [id number] 50mg Take 1 [facility] 50 mg 9-30 tablet by ity of tablet 00:00: mouth as [place] 00 needed for Medical Migraine. Branch SUMAtriptan 2021- No [id number] 50mg Take 1 [facility] 50 mg 9-30 10-13 tablet by ity of tablet 00:00: 00:00 mouth as [place] 00 :00 needed for Medical Migraine. Branch FOLIC ACID Yes Take by [employer] ORAL 06-17 mouth ity of 10:41: daily. [place] 15 Medical Branch MULTIVIT Yes Take by [facility] s &MINERALS/F 06-17 mouth. ity of ERROUS FUM 10:41: [place] (MULTI 15 Medical VITAMIN Branch ORAL) METHYLCELLU Yes [facility] s LOSE (FIBER 06-17 ity of THERAPY 10:41: [place] MISC) 15 Medical Branch DOCUSATE Yes Take by [facility] s SODIUM 06-17 mouth. ity of [...] - mouth ity of EXTRACT 10:41: daily. [place] (CRANBERRY 15 Medical ORAL) Branch CALCIUM Yes Take by [facility] ORAL - mouth ity of 10:41: daily. [place] 15 Medical Branch DOCOSAHEXAN Yes 1000mg Take 1,000 [facility] OIC 9-22 mg by ity of ACID/EPA 10:41: mouth [place] (FISH OIL 15 daily. Medical ORAL) Branch BIOTIN ORAL Yes Take by Uni vers 06-17 mouth. ity of 10:41: [place] [address] Medical Branch FOLIC ACID Yes Take by Univ ers ORAL 06-17 mouth ity of 10:41: daily. [place] [address] Medical Branch MULTIVIT Yes Take by [facility] s &MINERALS/F 06-17 mouth. ity of ERROUS FUM 10:41: [place] (MULTI 15 Medical VITAMIN Branch ORAL) METHYLCELLU Yes [facility] s LOSE (FIBER 06-17 ity of THERAPY 10:41: [place] MISC) Medical Branch DOCUSATE Yes Take by [...] - mouth ity of EXTRACT 10:41: daily. [place] (CRANBERRY 15 Medical ORAL) Branch CALCIUM Yes Take by [facility] ORAL - mouth ity of 10:41: daily. [place] [address] Medical Branch DOCOSAHEXAN Yes 1000mg Take 1,000 [facility] OIC 9-22 mg by ity of ACID/EPA 10:41: mouth [place] (FISH OIL 15 daily. Medical ORAL) Branch BIOTIN ORAL Yes Take by Uni vers 9-22 mouth. ity of 10:41: [place] 15 Medical Branch FOLIC ACID 0 Yes Take by Univ ers ORAL - mouth ity of 10:41: daily. [place] 15 Medical Branch MULTIVIT 0 Yes Take by [facility] s &MINERALS/F - mouth. ity of ERROUS FUM 10:41: [place] (MULTI 15 Medical VITAMIN Branch ORAL) METHYLCELLU 0 Yes Univer s LOSE (FIBER 9-22 ity of THERAPY 10:41: [place] MIS) 15 Medical Branch DOCUSATE 0 Yes [...] - mouth ity of EXTRACT 10:41: daily. [place] (CRANBERRY 15 Medical ORAL) Branch CALCIUM Yes Take by [facility] ORAL - mouth ity of 10:41: daily. [place] 15 Medical Branch DOCOSAHEXAN Yes 1000mg Take 1,000 [facility] OIC 9-22 mg by ity of ACID/EPA 10:41: mouth [place] (FISH OIL 15 daily. Medical ORAL) Branch BIOTIN ORAL Yes Take by Uni vers 9-22 mouth. ity of 10:41: [place] 15 Medical Branch FOLIC ACID Yes Take by Univ ers ORAL 9-22 mouth ity of 10:41: daily. [place] 15 Medical Branch MULTIVIT Yes Take by [facility]iver s &MINERALS/F -22 mouth. ity of ERROUS FUM 10:41: [place] (MULTI 15 Medical VITAMIN Branch ORAL) METHYLCELLU 0 Yes Univer s LOSE (FIBER 9-22 ity of THERAPY 10:41: [place] MIS) 15 Medical Branch DOCUSATE 0 Yes [...] Branch unit) tablet CRANBERRY Yes Take by [employer] [facility] FRUIT - mouth ity of EXTRACT 10:41: daily. [place] (CRANBERRY 15 Medical ORAL) Branch CALCIUM Yes Take by [facility] ORAL - mouth ity of 10:41: daily. [place] 15 Medical Branch DOCOSAHEXAN Yes 1000mg Take 1,000 [facility] OIC 9-22 mg by ity of ACID/EPA 10:41: mouth [place] (FISH OIL 15 daily. Medical ORAL) Branch BIOTIN ORAL Yes Take by Uni vers 06-17 mouth. ity of 10:41: [place] [address] Medical Branch FOLIC ACID Yes Take by Univ ers ORAL - mouth ity of 10:41: daily. [place] 15 Medical Branch MULTIVIT Yes Take by [employer] [facility] &MINERALS/F 06-17 mouth. ity of ERROUS FUM 10:41: [place] (MULTI 15 Medical VITAMIN Branch ORAL) METHYLCELLU Yes Univer s LOSE (FIBER 06-17 ity of THERAPY 10:41: [place] MISC) 15 Medical Branch [facility]ATE [facility] - mouth. ity of (COLACE [...] Branch unit) tablet CRANBERRY Yes Take by [employer] [facility] FRUIT -22 mouth ity of EXTRACT 10:41: daily. [place] (CRANBERRY 15 Medical ORAL) Branch CALCIUM Yes Take by [facility] ORAL 9-22 mouth ity of 10:41: daily. [place] 15 Medical Branch DOCOSAHEXAN Yes 1000mg Take 1,000 [facility] OIC 9-22 mg by ity of ACID/EPA 10:41: mouth [place] (FISH OIL 15 daily. Medical ORAL) Branch BIOTIN ORAL Yes Take by Uni vers - mouth. ity of 10:41: [place] [address] Medical Branch FOLIC ACID Yes Take by Univ ers ORAL - mouth ity of 10:41: daily. [place] [address] Medical Branch MULTIVIT Yes Take by Univer s &MINERALS/F - mouth. ity of ERROUS FUM 10:41: [place] (MULTI 15 Medical VITAMIN Branch ORAL) METHYLCELLU Yes Univer s LOSE (FIBER 06-17 ity of THERAPY 10:41: [place] MISC) Medical Branch DOCUSATE Yes Take by [...] 06-17 mouth ity of EXTRACT 10:41: daily. [place] (CRANBERRY 15 Medical ORAL) Branch CALCIUM Yes Take by [facility] ORAL -22 mouth ity of 10:41: daily. [place] Medical Branch DOCOSAHEXAN Yes 1000mg Take 1,000 [facility] OIC 9-22 mg by ity of ACID/EPA 10:41: mouth [place] (FISH OIL 15 daily. Medical ORAL) Branch BIOTIN ORAL Yes Take by Uni vers -22 mouth. ity of 10:41: [place] [address] Medical Branch FOLIC ACID Yes Take by Univ ers ORAL - mouth ity of 10:41: daily. [place] 15 Medical Branch MULTIVIT Yes Take by Univer s &MINERALS/F -22 mouth. ity of ERROUS FUM 10:41: [place] (MULTI 15 Medical VITAMIN Branch ORAL) METHYLCELLU 0 Yes Univer s LOSE (FIBER 9-22 ity of THERAPY 10:41: [place] [facility]) 15 Medical Branch DOCUSATE Yes Take by [...] Branch unit) tablet CRANBERRY Yes [facility]-17 mouth ity of EXTRACT 10:41: daily. [place] (CRANBERRY 15 Medical ORAL) Branch CALCIUM Yes Take by [facility] ORAL - mouth ity of 10:41: daily. [place] 15 Medical Branch DOCOSAHEXAN Yes 1000mg Take 1,000 [facility] OIC 9-22 mg by ity of ACID/EPA 10:41: mouth [place] (FISH OIL 15 daily. Medical ORAL) Branch BIOTIN ORAL Yes Take by Uni vers - mouth. ity of 10:41: [place] [address] Medical Branch FOLIC ACID Yes Take by Univ ers ORAL - mouth ity of 10:41: daily. [place] 15 Medical Branch MULTIVIT Yes Take by Univer s &MINERALS/F -22 mouth. ity of ERROUS FUM 10:41: [place] (MULTI 15 Medical VITAMIN Branch ORAL) METHYLCELLU 0 Yes Univer s LOSE (FIBER 9-22 ity of THERAPY 10:41: [place] MIS) Medical Branch DOCUSATE 0 Yes Take by [...] 06-17 mouth ity of EXTRACT 10:41: daily. [place] (CRANBERRY 15 Medical ORAL) Branch CALCIUM Yes Take by [facility] ORAL - mouth ity of 10:41: daily. [place] Medical Branch DOCOSAHEXAN Yes 1000mg Take 1,000 [facility] OIC 9-22 mg by ity of ACID/EPA 10:41: mouth [place] (FISH OIL 15 daily. Medical ORAL) Branch BIOTIN ORAL Yes Take by Uni vers 06-17 mouth. ity of 10:41: [place] [address] Medical Branch FOLIC ACID Yes Take by Univ ers ORAL 06-17 mouth ity of 10:41: daily. [place] [address] Medical Branch MULTIVIT Yes Take by Univer s &MINERALS/F 06-17 mouth. ity of ERROUS FUM 10:41: [place] (MULTI 15 Medical VITAMIN Branch ORAL) METHYLCELLU Yes Univer s LOSE (FIBER 06-17 ity of THERAPY 10:41: [place] MISC) Medical Branch DOCUSATE Yes Take by Unive rs SODIUM - mouth. ity of (COLACE 10:41: [...] - mouth ity of EXTRACT 10:41: daily. [place] (CRANBERRY 15 Medical ORAL) Branch CALCIUM Yes Take by [facility] ORAL - mouth ity of 10:41: daily. [place] Medical Branch DOCOSAHEXAN Yes 1000mg Take 1,000 [facility] OIC 9-22 mg by ity of ACID/EPA 10:41: mouth [place] (FISH OIL 15 daily. Medical ORAL) Branch BIOTIN ORAL Yes Take by Uni vers 9-22 mouth. ity of 10:41: [place] 15 Medical Branch FOLIC ACID 0 Yes Take by Univ ers ORAL - mouth ity of 10:41: daily. [place] 15 Medical Branch MULTIVIT Yes Take by Univer s &MINERALS/F - mouth. ity of ERROUS FUM 10:41: [place] (MULTI 15 Medical VITAMIN Branch ORAL) METHYLCELLU Yes Univer s LOSE (FIBER - ity of THERAPY 10:41: [place] MISC) 15 Medical Branch DOCUSATE Yes Take [...] - mouth ity of EXTRACT 10:41: daily. [place] (CRANBERRY 15 Medical ORAL) Branch CALCIUM Yes Take by [facility] ORAL 9-22 mouth ity of 10:41: daily. [place] 15 Medical Branch DOCOSAHEXAN Yes 1000mg Take 1,000 [facility] OIC 9-22 mg by ity of ACID/EPA 10:41: mouth [place] (FISH OIL 15 daily. Medical ORAL) Branch BIOTIN ORAL Yes Take by Uni vers 9-22 mouth. ity of 10:41: [place] 15 Medical Branch FOLIC ACID Yes Take by Univ ers ORAL 9- mouth ity of 10:41: daily. [place] 15 Medical Branch MULTIVIT Yes Take by Univer s &MINERALS/F - mouth. ity of ERROUS FUM 10:41: [place] (MULTI 15 Medical VITAMIN Branch ORAL) METHYLCELLU 0 Yes Univer s LOSE (FIBER 9-22 ity of THERAPY 10:41: [place] [facility]) 15 Medical Branch DOCUSATE Yes [facility] - mouth. ity of (COLACE 10:41: [place] ORAL) 15 Medical Branch vitamin C Yes 1000mg Take 1,000 [facility] with derrell 9-22 mg by ity of hips 1,000 10:41: mouth [place] mg tablet 15 daily. Medical Branch cholecalcif Yes 1000U Take 1,000 [facility] edmar, 9-22 Units by ity of vitamin D3, 10:41: mouth [place] 25 mcg 15 daily. Medical (1,000 Branch unit) tablet CRANBERRY Yes Take by [facility] rs FRUIT 06-17 mouth ity of EXTRACT 10:41: daily. [place] (CRANBERRY 15 Medical ORAL) Branch CALCIUM Yes Take by [facility] ORAL 06-17 mouth ity of 10:41: daily. [place] 15 Medical Branch DOCOSAHEXAN Yes 1000mg Take 1,000 [facility] OIC 9-22 mg by ity of ACID/EPA 10:41: mouth [place] (FISH OIL 15 daily. Medical ORAL) Branch BIOTIN ORAL Yes Take by Uni vers 06-17 mouth. ity of 10:41: [place] [address] Medical Branch FOLIC ACID Yes Take by Univ ers ORAL 06-17 mouth ity of 10:41: daily. [place] [address] Medical Branch MULTIVIT Yes Take by [facility] &MINERALS/F - mouth. ity of ERROUS FUM 10:41: [place] (MULTI 15 Medical VITAMIN Branch ORAL) METHYLCELLU Yes [facility] (FIBER - ity of THERAPY 10:41: [place] [facility]) 15 Medical Branch DOCUSATE Yes Take by [facility] SODIUM - mouth. ity of (COLACE 10:41: [place] ORAL) 15 Medical Branch vitamin C Yes [...] - mouth ity of EXTRACT 10:41: daily. [place] (CRANBERRY 15 Medical ORAL) Branch CALCIUM Yes Take by [facility] ORAL - mouth ity of 10:41: daily. [place] 15 Medical Branch DOCOSAHEXAN Yes 1000mg Take 1,000 [facility] OIC 9-22 mg by ity of ACID/EPA 10:41: mouth [place] (FISH OIL 15 daily. Medical ORAL) Branch BIOTIN ORAL Yes Take by Uni vers 06-17 mouth. ity of 10:41: [place] [address] Medical Branch FOLIC ACID Yes Take by Univ ers ORAL 06-17 mouth ity of 10:41: daily. [place] [address] Medical Branch MULTIVIT Yes Take by Univer s &MINERALS/F 06-17 mouth. ity of ERROUS FUM 10:41: [place] (MULTI 15 Medical VITAMIN Branch ORAL) METHYLCELLU Yes Univer s LOSE (FIBER 06-17 ity of THERAPY 10:41: [place] MISC) Medical Branch DOCUSATE Yes Take by Univer s SODIUM 06-17 mouth. ity of (COLACE 10:41: [place] ORAL) 15 Medical Branch vitamin C Yes 1000mg Take 1,000 [facility] with derrell 9-22 mg by ity of hips 1,000 10:41: mouth [place] mg tablet 15 daily. Medical Branch cholecalcif Yes 1000U Take 1,000 [facility] edmar, 9-22 Units by ity of vitamin D3, 10:41: mouth [place] 25 mcg 15 daily. Medical (1,000 Branch unit) tablet CRANBERRY Yes [facility] - mouth ity of EXTRACT 10:41: daily. [place] (CRANBERRY 15 Medical ORAL) Branch CALCIUM Yes Take by [facility] ORAL - mouth ity of 10:41: daily. [place] 15 Medical Branch DOCOSAHEXAN Yes 1000mg Take 1,000 [facility] OIC 9-22 mg by ity of ACID/EPA 10:41: mouth [place] (FISH OIL 15 daily. Medical ORAL) Branch BIOTIN ORAL Yes Take by Uni vers - mouth. ity of 10:41: [place] [address] Medical Branch FOLIC ACID Yes Take by Univ ers ORAL - mouth ity of 10:41: daily. [place] 15 Medical Branch MULTIVIT Yes Take by Univer s &MINERALS/F - mouth. ity of ERROUS FUM 10:41: [place] (MULTI 15 Medical VITAMIN Branch ORAL) METHYLCELLU Yes Univer s LOSE (FIBER 9-22 ity of THERAPY 10:41: [place] [facility]) 15 Medical Branch DOCUSATE Yes Take by [...] CRANBERRY Yes Take by [facility] rs FRUIT 06-17 mouth ity of EXTRACT 10:41: daily. [place] (CRANBERRY 15 Medical ORAL) Branch CALCIUM Yes Take by [facility] ORAL - mouth ity of 10:41: daily. [place] 15 Medical Branch DOCOSAHEXAN Yes 1000mg Take 1,000 [facility] OIC 9-22 mg by ity of ACID/EPA 10:41: mouth [place] (FISH OIL 15 daily. Medical ORAL) Branch BIOTIN ORAL Yes Take by Uni vers - mouth. ity of 10:41: [place] 15 Medical Branch FOLIC ACID Yes Take by Univ ers ORAL 9-22 mouth ity of 10:41: daily. [place] 15 Medical Branch MULTIVIT Yes Take by Univer s &MINERALS/F -22 mouth. ity of ERROUS FUM 10:41: [place] (MULTI 15 Medical VITAMIN Branch ORAL) METHYLCELLU 0 Yes Univer s LOSE (FIBER 9-22 ity of THERAPY 10:41: [place] [facility]) 15 Medical Branch vitamin C Yes 1000mg [...] 06-17 mouth ity of EXTRACT 10:41: daily. [place] (CRANBERRY 15 Medical ORAL) Branch CALCIUM Yes Take by Univers ORAL 06-17 mouth ity of 10:41: daily. [place] 15 Medical Branch DOCOSAHEXAN Yes 1000mg Take 1,000 [facility] OIC 9-22 mg by ity of ACID/EPA 10:41: mouth [place] (FISH OIL 15 daily. Medical ORAL) Branch BIOTIN ORAL Yes Take by Uni vers 06-17 mouth. ity of 10:41: [place] [address] Medical Branch FOLIC ACID Yes Take by Univ ers ORAL 06-17 mouth ity of 10:41: daily. [place] [address] Medical Branch MULTIVIT Yes Take by Univer s &MINERALS/F 06-17 mouth. ity of ERROUS FUM 10:41: [place] (MULTI 15 Medical VITAMIN Branch ORAL) METHYLCELLU Yes Univer s LOSE (FIBER 06-17 ity of THERAPY 10:41: [place] [facility]) Medical Branch vitamin C Yes 1000mg Take [...] - mouth ity of EXTRACT 10:41: daily. [place] (CRANBERRY 15 Medical ORAL) Branch CALCIUM Yes Take by Univers ORAL - mouth ity of 10:41: daily. [place] 15 Medical Branch DOCOSAHEXAN Yes 1000mg Take 1,000 [facility] OIC 9-22 mg by ity of ACID/EPA 10:41: mouth [place] (FISH OIL 15 daily. Medical ORAL) Branch BIOTIN ORAL Yes Take by Uni vers 06-17 mouth. ity of 10:41: [place] [address] Medical Branch FOLIC ACID 0 Yes Take by Univ ers ORAL - mouth ity of 10:41: daily. [place] 15 Medical Branch MULTIVIT 0 Yes Take by Univer s &MINERALS/F 06-17 mouth. ity of ERROUS FUM 10:41: [place] (MULTI 15 Medical VITAMIN Branch ORAL) METHYLCELLU 0 Yes Univer s LOSE (FIBER - ity of THERAPY 10:41: [place] [facility]) 15 Medical Branch vitamin C 0 Yes 1000mg Take 1,000 [facility] with derrell 9-22 mg by ity of hips 1,000 10:41: mouth [place] mg tablet 15 daily. Medical Branch cholecalcif 0 Yes 1000U Take 1,000 [facility] edmar, 9-22 Units by ity of vitamin D3, 10:41: mouth [place] 25 mcg 15 daily. Medical (1,000 Branch unit) tablet CRANBERRY Yes Take by [facility] rs FRUIT 06-17 mouth ity of EXTRACT 10:41: daily. [place] (CRANBERRY 15 Medical ORAL) Branch CALCIUM 0 Yes Take by [facility] ORAL 06-17 mouth ity of 10:41: daily. [place] 15 Medical Branch DOCOSAHEXAN Yes 1000mg Take 1,000 [facility] OIC 9-22 mg by ity of ACID/EPA 10:41: mouth [place] (FISH OIL 15 daily. Medical ORAL) Branch BIOTIN ORAL 0 Yes Take by Uni vers 06-17 mouth. ity of 10:41: [place] [address] Medical Branch FOLIC ACID 0 Yes Take by Univ ers ORAL - mouth ity of 10:41: daily. [place] [address] Medical Branch MULTIVIT 0 Yes Take by Univer s &MINERALS/F - mouth. ity of ERROUS FUM 10:41: [place] (MULTI 15 Medical VITAMIN Branch ORAL) METHYLCELLU 2021-0 Yes Univer s LOSE (FIBER - ity of THERAPY 10:41: [place] [facility]) Medical Branch vitamin C 0 Yes 1000mg [...] - mouth ity of EXTRACT 10:41: daily. [place] (CRANBERRY 15 Medical ORAL) Branch CALCIUM Yes Take by Univers ORAL - mouth ity of 10:41: daily. [place] [address] Medical Branch DOCOSAHEXAN Yes 1000mg Take 1,000 [facility] OIC 9-22 mg by ity of ACID/EPA 10:41: mouth [place] (FISH OIL 15 daily. Medical ORAL) Branch BIOTIN ORAL Yes Take by Uni vers 06-17 mouth. ity of 10:41: [place] [address] Medical Branch FOLIC ACID Yes Take by Univ ers ORAL - mouth ity of 10:41: daily. [place] [address] Medical Branch MULTIVIT Yes Take by Univer s &MINERALS/F 06-17 mouth. ity of ERROUS FUM 10:41: [place] (MULTI 15 Medical VITAMIN Branch ORAL) METHYLCELLU Yes Univer s LOSE (FIBER 06-17 ity of THERAPY 10:41: [place] [facility]) Medical Branch vitamin C Yes 1000mg Take [...] - mouth ity of EXTRACT 10:41: daily. [place] (CRANBERRY 15 Medical ORAL) Branch CALCIUM Yes Take by Univers ORAL - mouth ity of 10:41: daily. [place] [address] Medical Branch DOCOSAHEXAN Yes 1000mg Take 1,000 [facility] OIC 9-22 mg by ity of ACID/EPA 10:41: mouth [place] (FISH OIL 15 daily. Medical ORAL) Branch BIOTIN ORAL Yes Take by Uni vers - mouth. ity of 10:41: [place] [address] Medical Branch FOLIC ACID Yes Take by Univ ers ORAL - mouth ity of 10:41: daily. [place] 15 Medical Branch MULTIVIT Yes Take by Univer s &MINERALS/F 06-17 mouth. ity of ERROUS FUM 10:41: [place] (MULTI 15 Medical VITAMIN Branch ORAL) METHYLCELLU 0 Yes Univer s LOSE (FIBER 06-17 ity of THERAPY 10:41: [place] [facility]) 15 Medical Branch vitamin C Yes 1000mg Take 1,000 [facility] with derrell 9-22 mg by ity of hips 1,000 10:41: mouth [place] mg tablet 15 daily. Medical Branch cholecalcif 0 Yes 1000U Take 1,000 [facility] edmar, 9-22 Units by ity of vitamin D3, 10:41: mouth [place] 25 mcg 15 daily. Medical (1,000 Branch unit) tablet CRANBERRY Yes Take by [facility] rs FRUIT 06-17 mouth ity of EXTRACT 10:41: daily. [place] (CRANBERRY 15 Medical ORAL) Branch CALCIUM Yes Take by Univers ORAL 06-17 mouth ity of 10:41: daily. [place] 15 Medical Branch DOCOSAHEXAN Yes 1000mg Take 1,000 [facility] OIC 9-22 mg by ity of ACID/EPA 10:41: mouth [place] (FISH OIL 15 daily. Medical ORAL) Branch BIOTIN ORAL Yes Take by Uni vers 06-17 mouth. ity of 10:41: [place] [address] Medical Branch FOLIC ACID Yes Take by Univ ers ORAL - mouth ity of 10:41: daily. [place] 15 Medical Branch MULTIVIT Yes Take by Univer s &MINERALS/F 06-17 mouth. ity of ERROUS FUM 10:41: [place] (MULTI 15 Medical VITAMIN Branch ORAL) METHYLCELLU 0 Yes Univer s LOSE (FIBER 9-22 ity of THERAPY 10:41: [place] [facility]) Medical Branch vitamin C 0 Yes 1000mg [...] - mouth ity of EXTRACT 10:41: daily. [place] (CRANBERRY 15 Medical ORAL) Branch CALCIUM Yes Take by Univers ORAL - mouth ity of 10:41: daily. [place] [address] Medical Branch DOCOSAHEXAN Yes 1000mg Take 1,000 [facility] OIC 9-22 mg by ity of ACID/EPA 10:41: mouth [place] (FISH OIL 15 daily. Medical ORAL) Branch BIOTIN ORAL Yes Take by Uni vers 06-17 mouth. ity of 10:41: [place] [address] Medical Branch FOLIC ACID Yes Take by Univ ers ORAL - mouth ity of 10:41: daily. [place] [address] Medical Branch MULTIVIT Yes [facility] &[facility]/F 06-17 mouth. ity of ERROUS FUM 10:41: [place] (MULTI 15 Medical VITAMIN Branch ORAL) METHYLCELLU Yes [facility] (FIBER 06-17 ity of THERAPY 10:41: [place] [facility]) Medical Branch vitamin C Yes 1000mg Take 1,000 [facility] with derrell 9-22 mg by ity of hips 1,000 10:41: mouth [place] mg tablet 15 daily. Medical Branch cholecalcif Yes 1000U Take 1,000 [facility] edmar, 9-22 Units by ity of vitamin D3, 10:41: mouth [place] 25 mcg 15 daily. Medical (1,000 Branch unit) tablet CRANBERRY Yes [facility] - mouth ity of EXTRACT 10:41: daily. [place] (CRANBERRY 15 Medical ORAL) Branch CALCIUM Yes Take by Univers ORAL 9-22 mouth ity of 10:41: daily. [place] [address] Medical Branch DOCOSAHEXAN Yes 1000mg Take 1,000 [facility] OIC 9-22 mg by ity of ACID/EPA 10:41: mouth [place] (FISH OIL 15 daily. Medical ORAL) Branch BIOTIN ORAL Yes Take by Uni vers - mouth. ity of 10:41: [place] [address] Medical Branch FOLIC ACID Yes Take by Univ ers ORAL 9-22 mouth ity of 10:41: daily. [place] [address] Medical Branch MULTIVIT 2022-0 Yes Take by Univer s &MINERALS/F - mouth. ity of ERROUS FUM 10:41: [place] (MULTI 15 Medical VITAMIN Branch ORAL) METHYLCELLU 0 Yes Univer s LOSE (FIBER - ity of THERAPY 10:41: [place] [facility]) 15 Medical Branch vitamin C Yes 1000mg [...] - mouth ity of EXTRACT 10:41: daily. [place] (CRANBERRY 15 Medical ORAL) Branch CALCIUM Yes Take by Univers ORAL - mouth ity of 10:41: daily. [place] 15 Medical Branch DOCOSAHEXAN Yes 1000mg Take 1,000 [facility] OIC 9-22 mg by ity of ACID/EPA 10:41: mouth [place] (FISH OIL 15 daily. Medical ORAL) Branch BIOTIN ORAL Yes Take by Uni vers - mouth. ity of 10:41: [place] [address] Medical Branch FOLIC ACID Yes Take by Univ ers ORAL - mouth ity of 10:41: daily. [place] [address] Medical Branch MULTIVIT Yes Take by Univer s &MINERALS/F - mouth. ity of ERROUS FUM 10:41: [place] (MULTI 15 Medical VITAMIN Branch ORAL) METHYLCELLU 0 Yes Univer s LOSE (FIBER -22 ity of THERAPY 10:41: [place] [facility]) Medical Branch vitamin C Yes 1000mg Take 1,000 [facility] with derrell 9-22 mg by ity of hips 1,000 10:41: mouth [place] mg tablet 15 daily. Medical Branch cholecalcif 0 Yes 1000U Take 1,000 [facility] edmar, 9-22 Units by ity of vitamin D3, 10:41: mouth [place] 25 mcg 15 daily. Medical (1,000 Branch unit) tablet CRANBERRY 0 Yes Take by Unive rs FRUIT 9- mouth ity of EXTRACT 10:41: daily. [place] (CRANBERRY 15 Medical ORAL) Branch CALCIUM Yes Take by Univers ORAL 9- mouth ity of 10:41: daily. [place] [address] Medical Branch DOCOSAHEXAN Yes 1000mg Take 1,000 [facility] OIC 9-22 mg by ity of ACID/EPA 10:41: mouth [place] (FISH OIL 15 daily. Medical ORAL) Branch BIOTIN ORAL Yes Take by Uni vers 06-17 mouth. ity of 10:41: [place] [address] Medical Branch FOLIC ACID Yes Take by Univ ers ORAL - mouth ity of 10:41: daily. [place] [address] Medical Branch MULTIVIT Yes Take by Univer s &MINERALS/F 06-17 mouth. ity of ERROUS FUM 10:41: [place] (MULTI 15 Medical VITAMIN Branch ORAL) METHYLCELLU Yes [facility] ([facility] 06-17 ity of THERAPY 10:41: [place] [facility]) Medical Branch vitamin C Yes 1000mg Take [...] - mouth ity of EXTRACT 10:41: daily. [place] (CRANBERRY 15 Medical ORAL) Branch CALCIUM Yes Take by Univers ORAL - mouth ity of 10:41: daily. [place] [address] Medical Branch DOCOSAHEXAN Yes 1000mg Take 1,000 [facility] OIC 9-22 mg by ity of ACID/EPA 10:41: mouth [place] (FISH OIL 15 daily. Medical ORAL) Branch BIOTIN ORAL Yes Take by Uni vers - mouth. ity of 10:41: [place] [address] Medical Branch FOLIC ACID Yes Take by Univ ers ORAL - mouth ity of 10:41: daily. [place] [address] Medical Branch MULTIVIT Yes Take by Univer s &MINERALS/F 06-17 mouth. ity of ERROUS FUM 10:41: [place] (MULTI 15 Medical VITAMIN Branch ORAL) METHYLCELLU 2021-0 Yes Univer s LOSE (FIBER 9-22 ity of THERAPY 10:41: [place] [facility]) 15 Medical Branch vitamin C 0 Yes [...] - mouth ity of EXTRACT 10:41: daily. [place] (CRANBERRY 15 Medical ORAL) Branch CALCIUM Yes Take by Univers ORAL - mouth ity of 10:41: daily. [place] [address] Medical Branch DOCOSAHEXAN Yes 1000mg Take 1,000 Univers OIC 9-22 mg by ity of ACID/EPA 10:41: mouth [place] (FISH OIL 15 daily. Medical ORAL) Branch BIOTIN ORAL Yes Take by Uni vers - mouth. ity of 10:41: [place] [address] Medical Branch FOLIC ACID Yes Take by Univ ers ORAL - mouth ity of 10:41: daily. [place] [address] Medical Branch MULTIVIT Yes Take by Univer s &MINERALS/F - mouth. ity of ERROUS FUM 10:41: [place] (MULTI 15 Medical VITAMIN Branch ORAL) METHYLCELLU 2021-0 Yes Univer s LOSE (FIBER 9-22 ity of THERAPY 10:41: [place] [facility]) Medical Branch vitamin C Yes 1000mg Take [...] - mouth ity of EXTRACT 10:41: daily. [place] (CRANBERRY 15 Medical ORAL) Branch CALCIUM 2022-0 Yes Take by Univers ORAL 9-22 mouth ity of 10:41: daily. [place] 15 Medical Branch DOCOSAHEXAN Yes 1000mg Take 1,000 Univers OIC 9-22 mg by ity of ACID/EPA 10:41: mouth [place] (FISH OIL 15 daily. Medical ORAL) Branch BIOTIN ORAL Yes Take by Uni vers 9-22 mouth. ity of 10:41: [place] 15 Medical Branch FOLIC ACID 0 Yes Take by Univ ers ORAL 9- mouth ity of 10:41: daily. [place] 15 Medical Branch MULTIVIT 0 Yes Take by Univer s &MINERALS/F - mouth. ity of ERROUS FUM 10:41: [place] (MULTI 15 Medical VITAMIN Branch ORAL) METHYLCELLU 0 Yes Univer s LOSE (FIBER - ity of THERAPY 10:41: [place] [address] Medical Branch vitamin C Yes 1000mg Take [...] - mouth ity of EXTRACT 10:41: daily. [place] (CRANBERRY 15 Medical ORAL) Branch CALCIUM Yes Take by Univers ORAL 9- mouth ity of 10:41: daily. [place] 15 Medical Branch DOCOSAHEXAN Yes 1000mg Take 1,000 Univers OIC 9-22 mg by ity of ACID/EPA 10:41: mouth [place] (FISH OIL 15 daily. Medical ORAL) Branch BIOTIN ORAL Yes Take by Uni vers 9-22 mouth. ity of 10:41: [place] [address] Medical Branch FOLIC ACID 0 Yes Take by Univ ers ORAL 9-22 mouth ity of 10:41: daily. [place] [address] Medical Branch MULTIVIT 0 Yes Take by Univer s &MINERALS/F - mouth. ity of ERROUS FUM 10:41: [place] (MULTI 15 Medical VITAMIN Branch ORAL) METHYLCELLU 2021-0 Yes Univer s LOSE (FIBER 9-22 ity of THERAPY 10:41: [place] [facility]) 15 Medical Branch vitamin C Yes 1000mg [...] 06-17 mouth ity of EXTRACT 10:41: daily. [place] (CRANBERRY 15 Medical ORAL) Branch CALCIUM Yes Take by Univers ORAL 06-17 mouth ity of 10:41: daily. [place] [address] Medical Branch DOCOSAHEXAN Yes 1000mg Take 1,000 Univers OIC 9-22 mg by ity of ACID/EPA 10:41: mouth [place] (FISH OIL 15 daily. Medical ORAL) Branch BIOTIN ORAL Yes Take by Uni vers 06-17 mouth. ity of 10:41: [place] [address] Medical Branch FOLIC ACID Yes Take by Univ ers ORAL 06-17 mouth ity of 10:41: daily. [place] [address] Medical Branch MULTIVIT Yes Take by Univer s &MINERALS/F 06-17 mouth. ity of ERROUS FUM 10:41: [place] (MULTI 15 Medical VITAMIN Branch ORAL) METHYLCELLU 0 Yes Univer s LOSE (FIBER - ity of THERAPY 10:41: [place] [facility]) 15 Medical Branch vitamin C Yes 1000mg [...] - mouth ity of EXTRACT 10:41: daily. [place] (CRANBERRY 15 Medical ORAL) Branch CALCIUM Yes Take by Univers ORAL - mouth ity of 10:41: daily. [place] 15 Medical Branch DOCOSAHEXAN Yes 1000mg Take 1,000 Univers OIC 9-22 mg by ity of ACID/EPA 10:41: mouth [place] (FISH OIL 15 daily. Medical ORAL) Branch BIOTIN ORAL Yes Take by Uni vers - mouth. ity of 10:41: [place] 15 Medical Branch FOLIC ACID Yes Take by Univ ers ORAL - mouth ity of 10:41: daily. [place] 15 Medical Branch MULTIVIT Yes Take by Unive rs &MINERALS/F - mouth. ity of ERROUS FUM 10:41: [place] (MULTI 15 Medical VITAMIN Branch ORAL) METHYLCELLU Yes Univer s LOSE (FIBER 06-17 ity of THERAPY 10:41: [place] [facility]) 15 Medical Branch vitamin C Yes 1000mg [...] - mouth ity of EXTRACT 10:41: daily. [place] (CRANBERRY 15 Medical ORAL) Branch CALCIUM Yes Take by Univers ORAL - mouth ity of 10:41: daily. [place] Medical Branch DOCOSAHEXAN Yes 1000mg Take 1,000 Univers OIC 9-22 mg by ity of ACID/EPA 10:41: mouth [place] (FISH OIL 15 daily. Medical ORAL) Branch BIOTIN ORAL Yes Take by Un jerrod - mouth. ity of 10:41: [place] Medical Branch FOLIC ACID Yes Take by Univ ers ORAL - mouth ity of 10:41: daily. [place] 15 Medical Branch MULTIVIT Yes Take by Univer s &MINERALS/F - mouth. ity of ERROUS FUM 10:41: [place] (MULTI 15 Medical VITAMIN Branch ORAL) METHYLCELLU 0 Yes Univer s LOSE (FIBER - ity of THERAPY 10:41: [place] [facility]) 15 Medical Branch vitamin C Yes 1000mg [...] 06-17 mouth ity of EXTRACT 10:41: daily. [place] (CRANBERRY 15 Medical ORAL) Branch CALCIUM Yes Take by Univers ORAL 06-17 mouth ity of 10:41: daily. [place] [address] Medical Branch DOCOSAHEXAN Yes 1000mg Take 1,000 Univers OIC 9-22 mg by ity of ACID/EPA 10:41: mouth [place] (FISH OIL 15 daily. Medical ORAL) Branch BIOTIN ORAL Yes Take by Uni vers 06-17 mouth. ity of 10:41: [place] [address] Medical Branch FOLIC ACID Yes Take by Univ ers ORAL 06-17 mouth ity of 10:41: daily. [place] [address] Medical Branch MULTIVIT Yes Take by Univer s &MINERALS/F 06-17 mouth. ity of ERROUS FUM 10:41: [place] (MULTI 15 Medical VITAMIN Branch ORAL) METHYLCELLU Yes Univer s LOSE (FIBER 06-17 ity of THERAPY 10:41: [facility] 15 Medical Branch vitamin C Yes 1000mg [...] - mouth ity of EXTRACT 10:41: daily. [place] (CRANBERRY 15 Medical ORAL) Branch CALCIUM Yes Take by Univers ORAL - mouth ity of 10:41: daily. [place] [address] Medical Branch DOCOSAHEXAN Yes 1000mg Take 1,000 Univers OIC 9-22 mg by ity of ACID/EPA 10:41: mouth [place] (FISH OIL 15 daily. Medical ORAL) Branch BIOTIN ORAL Yes Take by Uni vers - mouth. ity of 10:41: [place] 15 Medical Branch FOLIC ACID 0 Yes Take by Univ ers ORAL - mouth ity of 10:41: daily. [place] 15 Medical Branch MULTIVIT Yes Take by Univer s &MINERALS/F - mouth. ity of ERROUS FUM 10:41: [place] (MULTI 15 Medical VITAMIN Branch ORAL) METHYLCELLU 0 Yes Univer s LOSE (FIBER 9-22 ity of THERAPY 10:41: [place] [facility]) 15 Medical Branch vitamin C Yes 1000mg [...] 06-17 mouth ity of EXTRACT 10:41: daily. [place] (CRANBERRY 15 Medical ORAL) Branch CALCIUM Yes Take by Univers ORAL - mouth ity of 10:41: daily. [place] 15 Medical Branch DOCOSAHEXAN Yes 1000mg Take 1,000 Univers OIC 9-22 mg by ity of ACID/EPA 10:41: mouth [place] (FISH OIL 15 daily. Medical ORAL) Branch BIOTIN ORAL Yes Take by Uni vers - mouth. ity of 10:41: [place] 15 Medical Branch FOLIC ACID 0 Yes Take by Univ ers ORAL - mouth ity of 10:41: daily. [place] 15 Medical Branch MULTIVIT 0 Yes Take by Univer s &MINERALS/F - mouth. ity of ERROUS FUM 10:41: [place] (MULTI 15 Medical VITAMIN Branch ORAL) METHYLCELLU 0 Yes Univer s LOSE (FIBER 9-22 ity of THERAPY 10:41: [place] [facility]) 15 Medical Branch vitamin C 0 Yes [...] 06-17 mouth ity of EXTRACT 10:41: daily. [place] (CRANBERRY 15 Medical ORAL) Branch CALCIUM Yes Take by Univers ORAL 06-17 mouth ity of 10:41: daily. [place] 15 Medical Branch DOCOSAHEXAN Yes 1000mg Take 1,000 Univers OIC 9-22 mg by ity of ACID/EPA 10:41: mouth [place] (FISH OIL 15 daily. Medical ORAL) Branch BIOTIN ORAL Yes Take by Uni vers 06-17 mouth. ity of 10:41: [place] [address] Medical Branch FOLIC ACID Yes Take by Univ ers ORAL 06-17 mouth ity of 10:41: daily. [place] [address] Medical Branch MULTIVIT Yes Take by Univer s &MINERALS/F 06-17 mouth. ity of ERROUS FUM 10:41: [place] (MULTI 15 Medical VITAMIN Branch ORAL) [facility]U [facility]17 ity of THERAPY 10:41: [place] [facility]) Medical Branch vitamin C Yes 1000mg Take [...] - mouth ity of EXTRACT 10:41: daily. [place] (CRANBERRY 15 Medical ORAL) Branch CALCIUM 0 Yes Take by Univers ORAL - mouth ity of 10:41: daily. [place] Medical Branch DOCOSAHEXAN Yes 1000mg Take 1,000 Univers OIC 9-22 mg by ity of ACID/EPA 10:41: mouth [place] (FISH OIL 15 daily. Medical ORAL) Branch BIOTIN ORAL Yes Take by Uni vers 06-17 mouth. ity of 10:41: [place] Medical Branch FOLIC ACID Yes Take by Univ ers ORAL 06-17 mouth ity of 10:41: daily. [place] [address] Medical Branch MULTIVIT Yes [facility] &[facility]/F 06-17 mouth. ity of ERROUS FUM 10:41: [place] (MULTI 15 Medical VITAMIN Branch ORAL) METHYLCELLU Yes [facility] s LOSE (FIBER 06-17 ity of THERAPY 10:41: [place] MIS) 15 Medical Branch vitamin C Yes 1000mg Take 1,000 Univers with derrell 9-22 mg by ity of hips 1,000 10:41: mouth [place] mg tablet 15 daily. Medical Branch cholecalcif Yes 1000U Take 1,000 Univers edmar, - Units by ity of vitamin D3, 10:41: mouth [place] 25 mcg 15 daily. Medical (1,000 Branch unit) tablet CRANBERRY Yes Take by [facility] rs FRUIT 06-17 mouth ity of EXTRACT 10:41: daily. [place] (CRANBERRY 15 Medical ORAL) Branch CALCIUM Yes Take by Univers ORAL 06-17 mouth ity of 10:41: daily. [place] [address] Medical Branch DOCOSAHEXAN Yes 1000mg Take 1,000 Univers OIC 9-22 mg by ity of ACID/EPA 10:41: mouth [place] (FISH OIL 15 daily. Medical ORAL) Branch BIOTIN ORAL Yes Take by Uni vers 06-17 mouth. ity of 10:41: [place] [address] Medical Branch SUMAtriptan Yes [id number] 50mg Take 1 Univers 50 mg 9-22 tablet by ity of tablet 00:00: mouth as [place] 00 needed for Medical Migraine. Branch topiramate Yes [id number] 75mg Take 3 Univers 25 mg 9-22 tablets by ity of tablet 00:00: mouth in [place] 00 the Medical morning Branch and 3 tablets in the evening. SUMAtriptan 0 Yes [id number] 50mg Take 1 Univers 50 mg 9-22 tablet by ity of tablet 00:00: mouth as [place] 00 needed for Medical Migraine. Branch topiramate 2022-0 Yes [id number] 75mg Take 3 Univers 25 mg 9-22 tablets by ity of tablet 00:00: mouth in [place] 00 the Medical morning Branch and 3 tablets in the evening. SUMAtriptan 2022-0 Yes [id number] 50mg Take 1 Univers 50 mg 9-22 tablet by ity of tablet 00:00: mouth as [place] [address] needed for Medical Migraine. Branch topiramate 2022-0 Yes [id number] 75mg Take 3 Univers 25 mg 9-22 tablets by ity of tablet 00:00: mouth in [place] 00 the Medical morning Branch and 3 tablets in the evening. SUMAtriptan 2022-0 Yes [id number] 50mg Take 1 Univers 50 mg 9-22 tablet by ity of tablet 00:00: mouth as [place] [address] needed for Medical Migraine. Branch topiramate 2-0 Yes [id number] 75mg Take 3 Univers 25 mg 9-22 tablets by ity of tablet 00:00: mouth in [place] 00 the Medical morning Branch and 3 tablets in the evening. topiramate 2-0 Yes [id number] 75mg Take 3 Univers 25 mg 9-22 tablets by ity of tablet 00:00: mouth in [place] 00 the Medical morning Branch and 3 tablets in the evening. topiramate 2022-0 Yes [id number] 75mg Take 3 Univers 25 mg 9-22 tablets by ity of tablet 00:00: mouth in [place] 00 the Medical morning Branch and 3 tablets in the evening. topiramate 2-0 Yes [id number] 75mg Take 3 Univers 25 mg 9-22 tablets by ity of tablet 00:00: mouth in [place] 00 the Medical morning Branch and 3 tablets in the evening. topiramate 2022-0 Yes [id number] 75mg Take 3 Univers 25 mg 9-22 tablets by ity of tablet 00:00: mouth in [place] 00 the Medical morning Branch and 3 tablets in the evening. topiramate 2022-0 Yes [id number] 75mg Take 3 Univers 25 mg 9-22 tablets by ity of tablet 00:00: mouth in [place] [address] the Medical morning Branch and 3 tablets in the evening. topiramate 2022-0 Yes [id number] 75mg Take 3 Univers 25 mg 9-22 tablets by ity of tablet 00:00: mouth in [place] [address] the Medical morning Branch and 3 tablets in the evening. topiramate 2022-0 2022- No [id number] 75mg Take 3 Univers 25 mg 9-22 10-13 tablets by ity of tablet 00:00: 00:00 mouth in [place] 00 :00 the Medical morning Branch and 3 tablets in the evening. SUMAtriptan 2021- No [id number] 50mg Take 1 Univers 50 mg 9-22 09-30 tablet by ity of tablet 00:00: 00:00 mouth as [place] 00 :00 needed for Medical Migraine. [place] pantoprazol Yes [id number] 40mg Take 1 Univers e 40 mg EC 9-16 tablet by ity of tablet 00:00: mouth in [place] 00 the Medical morning. [place] Simethicone Yes [id number] 125mg Take 1 Univers 125 mg 9-16 capsule by ity of 00:00: mouth [place] 00 after Medical meals and Branch at bedtime as needed for Gas (Per bowel prep). pantoprazol Yes [id number] 40mg Take 1 Univers e 40 mg EC 9-16 tablet by ity of tablet 00:00: mouth in [place] 00 the Medical morning. [place] Simethicone Yes [id number] 125mg Take 1 Univers 125 mg 9-16 capsule by ity of 00:00: mouth [place] 00 after Medical meals and Branch at bedtime as needed for Gas (Per bowel prep). pantoprazol Yes [id number] 40mg Take 1 Univers e 40 mg EC 9-16 tablet by ity of tablet 00:00: mouth in [place] 00 the Medical morning. [place] Simethicone Yes [id number] 125mg Take 1 Univers 125 mg 9-16 capsule by ity of 00:00: mouth [place] 00 after Medical meals and Branch at bedtime as needed for Gas (Per bowel prep). pantoprazol 0 Yes [id number] 40mg Take 1 Univers e 40 mg EC 9-16 tablet by ity of tablet 00:00: mouth in [place] 00 the Medical morning. Branch Simethicone Yes [id number] 125mg Take 1 Univers 125 mg 9-16 capsule by ity of 00:00: mouth [place] 00 after Medical meals and Branch at bedtime as needed for Gas (Per bowel prep). pantoprazol 2021-0 Yes [id number] 40mg Take 1 Univers e 40 mg EC 9-16 tablet by ity of tablet 00:00: mouth in [place] 00 the Medical morning. Branch Simethicone 2021-0 Yes [id number] 125mg Take 1 Univers 125 mg 9-16 capsule by ity of 00:00: mouth [place] 00 after Medical meals and Branch at bedtime as needed for Gas (Per bowel prep). pantoprazol 2021-0 Yes [id number] 40mg Take 1 Univers e 40 mg EC 9-16 tablet by ity of tablet 00:00: mouth in [place] 00 the Medical morning. Branch Simethicone 0 Yes [id number] 125mg Take 1 Univers 125 mg 9-16 capsule by ity of 00:00: mouth [place] 00 after Medical meals and Branch at bedtime as needed for Gas (Per bowel prep). pantoprazol 0 Yes [id number] 40mg Take 1 Univers e 40 mg EC 9-16 tablet by ity of tablet 00:00: mouth in [place] 00 the Medical morning. Branch Simethicone 0 Yes [id number] 125mg Take 1 Univers 125 mg 9-16 capsule by ity of 00:00: mouth [place] 00 after Medical meals and Branch at bedtime as needed for Gas (Per bowel prep). pantoprazol 2021-0 Yes [id number] 40mg Take 1 Univers e 40 mg EC 9-16 tablet by ity of tablet 00:00: mouth in [place] 00 the Medical morning. Branch Simethicone 2021-0 Yes [id number] 125mg Take 1 Univers 125 mg 9-16 capsule by ity of 00:00: mouth [place] 00 after Medical meals and Branch at bedtime as needed for Gas (Per bowel prep). pantoprazol 2021-0 Yes [id number] 40mg Take 1 Univers e 40 mg EC 9-16 tablet by ity of tablet 00:00: mouth in [place] 00 the Medical morning. Branch Simethicone 2021-0 Yes [id number] 125mg Take 1 Univers 125 mg 9-16 capsule by ity of 00:00: mouth [place] 00 after Medical meals and Branch at bedtime as needed for Gas (Per bowel prep). pantoprazol 2021-0 Yes [id number] 40mg Take 1 Univers e 40 mg EC 9-16 tablet by ity of tablet 00:00: mouth in [place] 00 the Medical morning. Branch Simethicone 2021-0 Yes [id number] 125mg Take 1 Univers 125 mg 9-16 capsule by ity of 00:00: mouth [place] 00 after Medical meals and Branch at bedtime as needed for Gas (Per bowel prep). pantoprazol 0 Yes [id number] 40mg Take 1 Univers e 40 mg EC 9-16 tablet by ity of tablet 00:00: mouth in [place] 00 the Medical morning. Branch Simethicone 2021-0 Yes [id number] 125mg Take 1 Univers 125 mg 9-16 capsule by ity of 00:00: mouth [place] 00 after Medical meals and Branch at bedtime as needed for Gas (Per bowel prep). pantoprazol 2021-0 Yes [id number] 40mg Take 1 Univers e 40 mg EC 9-16 tablet by ity of tablet 00:00: mouth in [place] 00 the Medical morning. Branch Simethicone 2021-0 Yes [id number] 125mg Take 1 Univers 125 mg 9-16 capsule by ity of 00:00: mouth [place] 00 after Medical meals and Branch at bedtime as needed for Gas (Per bowel prep). pantoprazol 2021-0 Yes [id number] 40mg Take 1 Univers e 40 mg EC 9-16 tablet by ity of tablet 00:00: mouth in [place] 00 the Medical morning. Branch Simethicone 2021-0 Yes [id number] 125mg Take 1 Univers 125 mg 9-16 capsule by ity of 00:00: mouth [place] 00 after Medical meals and Branch at bedtime as needed for Gas (Per bowel prep). pantoprazol 2021-0 Yes [id number] 40mg Take 1 Univers e 40 mg EC 9-16 tablet by ity of tablet 00:00: mouth in [place] 00 the Medical morning. Branch Simethicone 2021-0 Yes [id number] 125mg Take 1 Univers 125 mg 9-16 capsule by ity of 00:00: mouth [place] 00 after Medical meals and Branch at bedtime as needed for Gas (Per bowel prep). pantoprazol 2021-0 Yes [id number] 40mg Take 1 Univers e 40 mg EC 9-16 tablet by ity of tablet 00:00: mouth in [place] 00 the Medical morning. Branch Simethicone 2021-0 Yes [id number] 125mg Take 1 Univers 125 mg 9-16 capsule by ity of 00:00: mouth [place] 00 after Medical meals and Branch at bedtime as needed for Gas (Per bowel prep). Simethicone 2021-0 Yes [id number] 125mg Take 1 Univers 125 mg 9-16 capsule by ity of 00:00: mouth [place] 00 after Medical meals and Branch at bedtime as needed for Gas (Per bowel prep). Simethicone 0 Yes [id number] 125mg Take 1 Univers 125 mg 9-16 capsule by ity of 00:00: mouth [place] 00 after Medical meals and Branch at bedtime as needed for Gas (Per bowel prep). Simethicone 2021- No [id number] 125mg Take 1 Univers 125 mg 9-16 11-01 capsule by ity of 00:00: 00:00 mouth [place] 00 :00 after Medical meals and Branch at bedtime as needed for Gas (Per bowel prep). Simethicone 2021- No [id number] 125mg Take 1 Univers 125 mg 9-16 11-01 capsule by ity of 00:00: 00:00 mouth [place] 00 :00 after Medical meals and Branch at bedtime as needed for Gas (Per bowel prep). pantoprazol 2021- No [id number] 40mg Take 1 Univers e 40 mg EC 9-16 10-13 tablet by ity of tablet 00:00: 00:00 mouth in [place] 00 :00 the Medical morning. Branch SUMAtriptan 0 Yes [id number] TAKE 1 Univers 50 mg 9-06 TABLET BY ity of tablet 00:00: MOUTH [place] 00 NEEDED FOR Medical MIGRAINE Branch HEADACHE ( MAY REPEAT IN 2 HOURS ) SUMAtriptan 2021-0 Yes [id number] TAKE 1 Univers 50 mg 9-06 TABLET BY ity of tablet 00:00: MOUTH [place] 00 NEEDED FOR Medical MIGRAINE Branch HEADACHE ( MAY REPEAT IN 2 HOURS ) SUMAtriptan 2021-0 Yes [id number] TAKE 1 Univers 50 mg 9-06 TABLET BY ity of tablet 00:00: MOUTH [place] 00 NEEDED FOR Medical MIGRAINE Branch HEADACHE ( MAY REPEAT IN 2 HOURS ) SUMAtriptan 2021-0 Yes [id number] TAKE 1 Univers 50 mg 9-06 TABLET BY ity of tablet 00:00: MOUTH [place] 00 NEEDED FOR Medical MIGRAINE Branch HEADACHE ( MAY REPEAT IN 2 HOURS ) SUMAtriptan 2022-0 Yes [id number] TAKE 1 Univers 50 mg 9-06 TABLET BY ity of tablet 00:00: MOUTH [place] 00 NEEDED FOR Medical MIGRAINE Branch HEADACHE ( MAY REPEAT IN 2 HOURS ) SUMAtriptan 2022-0 Yes [id number] TAKE 1 [facility] 50 mg 9-06 TABLET BY ity of tablet 00:00: MOUTH [place] 00 NEEDED FOR Medical MIGRAINE Branch HEADACHE ( MAY REPEAT IN 2 HOURS ) SUMAtriptan 2022-0 Yes [id number] TAKE 1 Univers 50 mg 9-06 TABLET BY ity of tablet 00:00: MOUTH [place] 00 NEEDED FOR Medical MIGRAINE Branch HEADACHE ( MAY REPEAT IN 2 HOURS ) SUMAtriptan 2022-0 Yes [id number] TAKE 1 [facility] 50 mg 9-06 TABLET BY ity of tablet 00:00: MOUTH [place] 00 NEEDED FOR Medical MIGRAINE Branch HEADACHE ( MAY REPEAT IN 2 HOURS ) SUMAtriptan 2022-0 Yes [id number] TAKE 1 [facility] 50 mg 9-06 TABLET BY ity of tablet 00:00: MOUTH [place] 00 NEEDED FOR Medical MIGRAINE Branch HEADACHE ( MAY REPEAT IN 2 HOURS ) SUMAtriptan 2022-0 Yes [id number] TAKE 1 [facility] 50 mg 9-06 TABLET BY ity of tablet 00:00: MOUTH [place] 00 NEEDED FOR Medical MIGRAINE Branch HEADACHE ( MAY REPEAT IN 2 HOURS ) SUMAtriptan 2022-0 Yes [id number] TAKE 1 [facility] 50 mg 9-06 TABLET BY ity of tablet 00:00: MOUTH [place] 00 NEEDED FOR Medical MIGRAINE Branch HEADACHE ( MAY REPEAT IN 2 HOURS ) SUMAtriptan 2022-0 Yes [id number] TAKE 1 [facility] 50 mg 9-06 TABLET BY ity of tablet 00:00: MOUTH [place] 00 NEEDED FOR Medical MIGRAINE Branch HEADACHE ( MAY REPEAT IN 2 HOURS ) SUMAtriptan 2022-0 2022- No [id number] TAKE 1 [facility] 50 mg 9-06 09-22 TABLET BY ity of tablet 00:00: 00:00 MOUTH [place] 00 :00 NEEDED FOR Medical MIGRAINE Branch HEADACHE ( MAY REPEAT IN 2 HOURS ) SUMAtriptan 2022-0 2022- No [id number] TAKE 1 [facility] 50 mg 9-06 09-22 TABLET BY ity of tablet 00:00: 00:00 MOUTH [place] 00 :00 NEEDED FOR Medical MIGRAINE Branch HEADACHE ( MAY REPEAT IN 2 HOURS ) SUMAtriptan 2-0 2- No [id number] TAKE 1 [facility] 50 mg 9-03 04- TABLET BY ity of tablet 00:00: 00:00 MOUTH [place] 00 :00 NEEDED FOR Medical MIGRAINE Branch HEADACHE ( MAY REPEAT IN 2 HOURS ) topiramate 2-0 Yes [id number] Take 2 Univers 25 mg 9-01 tablets by ity of tablet 00:00: mouth [place] 00 twice Medical daily Branch topiramate 2022-0 Yes [id number] Take 2 [facility] 25 mg 9-01 tablets by ity of tablet 00:00: mouth [place] 00 twice Medical daily Branch topiramate 2-0 Yes [id number] Take 2 [facility] 25 mg 9-01 tablets by ity of tablet 00:00: mouth [place] 00 twice Medical daily Branch topiramate 2-0 Yes [id number] Take 2 [facility] 25 mg 9-01 tablets by ity of tablet 00:00: mouth [place] 00 twice Medical daily Branch topiramate 2-0 Yes [id number] Take 2 [facility] 25 mg 9-01 tablets by ity of tablet 00:00: mouth [place] 00 twice Medical daily Branch topiramate 2-0 Yes [id number] Take 2 [facility] 25 mg 9-01 tablets by ity of tablet 00:00: mouth [place] 00 twice Medical daily Branch topiramate 2-0 Yes [id number] Take 2 [facility] 25 mg 9-01 tablets by ity of tablet 00:00: mouth [place] 00 twice Medical daily Branch topiramate 2022-0 Yes [id number] Take 2 [facility] 25 mg 9-01 tablets by ity of tablet 00:00: mouth [place] 00 twice Medical daily Branch topiramate 2022-0 Yes [id number] Take 2 [facility] 25 mg 9-01 tablets by ity of tablet 00:00: mouth [place] 00 twice Medical daily Branch topiramate 2022-0 Yes [id number] Take 2 [facility] 25 mg 9-01 tablets by ity of tablet 00:00: mouth [place] 00 twice Medical daily Branch topiramate 2022-0 Yes [id number] Take 2 [facility] 25 mg 9-01 tablets by ity of tablet 00:00: mouth [place] 00 twice Medical daily Branch topiramate 2-0 Yes [id number] Take 2 [facility] 25 mg 9-01 tablets by ity of tablet 00:00: mouth 00 twice Medical daily Branch topiramate 2021-0 Yes [id number] Take 2 [facility] 25 mg 9-01 tablets by ity of tablet 00:00: mouth 00 twice Medical daily Branch topiramate 2-0 Yes [id number] Take 2 [facility] 25 mg 9-01 tablets by ity of tablet 00:00: mouth 00 twice Medical daily Branch topiramate 2021-0 Yes [id number] Take 2 [facility] 25 mg 9-01 tablets by ity of tablet 00:00: mouth 00 twice Medical daily Branch topiramate 2-0 2- No [id number] Take 2 [facility] 25 mg 9-01 -22 tablets by ity of tablet 00:00: 00:00 mouth [place] 00 :00 twice Medical daily Branch topiramate 2021-0 2022- No [id number] Take 2 [facility] 25 mg 9-01 -22 tablets by ity of tablet 00:00: 00:00 mouth [place] 00 :00 twice Medical daily Branch topiramate 2021-0 2- No [id number] Take 2 [facility] 25 mg 9-01 -22 tablets by ity of tablet 00:00: 00:00 mouth [place] 00 :00 twice Medical daily Branch methocarbam 2021-0 Yes [id number] 500mg Take 1 [facility] oL 500 mg 8-11 tablet by ity o f tablet 00:00: mouth ([facility]) Medical times Branch daily as needed for Pain (scale 7-10). methocarbam 2021-0 Yes [id number] 500mg Take 1 [facility] oL 500 mg 8-11 tablet by ity o f tablet 00:00: mouth (four) Medical times Branch daily as needed for Pain (scale 7-10). methocarbam 2021-0 Yes [id number] 500mg Take 1 [facility] oL 500 mg 8-11 tablet by ity o f tablet 00:00: mouth (four) Medical times Branch daily as needed for Pain (scale 7-10). methocarbam 2021-0 Yes [id number] 500mg Take 1 [facility] 500 mg 8-11 tablet by [facility] tablet 00:00: mouth (four) Medical times Branch daily as needed for Pain (scale 7-10). methocarbam 2022-0 Yes [id number] 500mg Take 1 [facility] 500 mg 8-11 tablet by [facility] tablet 00:00: mouth (four) Medical times Branch daily as needed for Pain (scale 7-10). methocarbam 2-0 Yes [id number] 500mg Take 1 [facility] 500 mg 8-11 tablet by [facility] tablet 00:00: mouth (four) Medical times Branch daily as needed for Pain (scale 7-10). methocarbam 2-0 Yes [id number] 500mg Take 1 [facility] 500 mg 8-11 tablet by [facility] tablet 00:00: mouth (four) Medical times Branch daily as needed for Pain (scale 7-10). methocarbam 2-0 Yes [id number] 500mg Take 1 [facility] 500 mg 8-11 tablet by [facility] tablet 00:00: mouth (four) Medical times Branch daily as needed for Pain (scale 7-10). methocarbam 2021-0 Yes [id number] 500mg Take 1 [facility] 500 mg 8-11 tablet by [facility] tablet 00:00: mouth (four) Medical times Branch daily as needed for Pain (scale 7-10). methocarbam 2-0 Yes [id number] 500mg Take 1 [facility] 500 mg 8-11 tablet by [facility] tablet 00:00: mouth (four) Medical times Branch daily as needed for Pain (scale 7-10). methocarbam 2-0 Yes [id number] 500mg Take 1 [facility] 500 mg 8-11 tablet by [facility] tablet 00:00: mouth (four) Medical times Branch daily as needed for Pain (scale 7-10). methocarbam 2-0 Yes [id number] 500mg Take 1 [facility] 500 mg 8-11 tablet by [facility] tablet 00:00: mouth (four) Medical times Branch daily as needed for Pain (scale 7-10). methocarbam 2-0 Yes [id number] 500mg Take 1 [facility] 500 mg 8-11 tablet by [facility] tablet 00:00: mouth (four) Medical times [facility] daily as needed for Pain (scale 7-10). methocarbam 2-0 Yes [id number] 500mg Take 1 [facility] 500 mg 8-11 tablet by [facility] tablet 00:00: mouth (four) Medical times Branch daily as needed for Pain (scale 7-10). methocarbam 2-0 Yes [id number] 500mg Take 1 [facility] 500 mg 8-11 tablet by [facility] tablet 00:00: mouth (four) Medical times [facility] daily as needed for Pain (scale 7-10). methocarbam 2-0 Yes [id number] 500mg Take 1 [facility] 500 mg 8-11 tablet by [facility] tablet 00:00: mouth (four) Medical times Branch daily as needed for Pain (scale 7-10). methocarbam 2-0 Yes [id number] 500mg Take 1 [facility] 500 mg 8-11 tablet by [facility] tablet 00:00: mouth (four) Medical times [facility] daily as needed for Pain (scale 7-10). methocarbam 2-0 Yes [id number] 500mg Take 1 [facility] 500 mg 8-11 tablet by [facility] tablet 00:00: mouth (four) Medical times [facility] daily as needed for Pain (scale 7-10). methocarbam 2-0 Yes [id number] 500mg Take 1 [facility] 500 mg 8-11 tablet by [facility] tablet 00:00: mouth (four) Medical times [facility] daily as needed for Pain (scale 7-10). methocarbam 2-0 Yes [id number] 500mg Take 1 [facility] 500 mg 8-11 tablet by [facility] tablet 00:00: mouth (four) Medical times [facility] daily as needed for Pain (scale 7-10). methocarbam 2-0 Yes [id number] 500mg Take 1 [facility] 500 mg 8-11 tablet by [facility] tablet 00:00: mouth (four) Medical times [facility] daily as needed for Pain (scale 7-10). methocarbam 2022-0 Yes [id number] 500mg Take 1 [facility] 500 mg 8-11 tablet by [facility] tablet 00:00: mouth (four) Medical times [facility] daily as needed for Pain (scale 7-10). methocarbam 2022-0 Yes [id number] 500mg Take 1 [facility] 500 mg 8-11 tablet by [facility] tablet 00:00: mouth (four) Medical times [facility] daily as needed for Pain (scale 7-10). methocarbam 2-0 Yes [id number] 500mg Take 1 [facility] 500 mg 8-11 tablet by [facility] tablet 00:00: mouth (four) Medical times [facility] daily as needed for Pain (scale 7-10). methocarbam 2-0 Yes [id number] 500mg Take 1 [facility] 500 mg 8-11 tablet by [facility] tablet 00:00: mouth (four) Medical times [facility] daily as needed for Pain (scale 7-10). methocarbam 2-0 Yes [id number] 500mg Take 1 [facility] 500 mg 8-11 tablet by [facility] tablet 00:00: mouth (four) Medical times [facility] daily as needed for Pain (scale 7-10). methocarbam 2-0 Yes [id number] 500mg Take 1 [facility] 500 mg 8-11 tablet by [facility] tablet 00:00: mouth (four) Medical times [facility] daily as needed for Pain (scale 7-10). methocarbam 2-0 Yes [id number] 500mg Take 1 [facility] 500 mg 8-11 tablet by [facility] tablet 00:00: mouth (four) Medical times [facility] daily as needed for Pain (scale 7-10). methocarbam 2-0 Yes [id number] 500mg Take 1 [facility] 500 mg 8-11 tablet by [facility] tablet 00:00: mouth (four) Medical times [facility] daily as needed for Pain (scale 7-10). methocarbam 2-0 Yes [id number] 500mg Take 1 [facility] 500 mg 8-11 tablet by [facility] tablet 00:00: mouth (four) Medical times [facility] daily as needed for Pain (scale 7-10). methocarbam 2022-0 Yes [id number] 500mg Take 1 [facility] 500 mg 8-11 tablet by [facility] tablet 00:00: mouth (four) Medical times [facility] daily as needed for Pain (scale 7-10). methocarbam 2022-0 Yes [id number] 500mg Take 1 [facility] 500 mg 8-11 tablet by [facility] tablet 00:00: mouth (four) Medical times Branch daily as needed for Pain (scale 7-10). methocarbam 2022-0 Yes [id number] 500mg Take 1 [facility] 500 mg 8-11 tablet by [facility] tablet 00:00: mouth (four) Medical times [facility] daily as needed for Pain (scale 7-10). methocarbam 2022-0 Yes [id number] 500mg Take 1 [facility] 500 mg 8-11 tablet by [facility] tablet 00:00: mouth (four) Medical times [facility] daily as needed for Pain (scale 7-10). methocarbam 2022-0 Yes [id number] 500mg Take 1 [facility] 500 mg 8-11 tablet by [facility] tablet 00:00: mouth (four) Medical times [facility] daily as needed for Pain (scale 7-10). methocarbam 2-0 Yes [id number] 500mg Take 1 [facility] 500 mg 8-11 tablet by [facility] tablet 00:00: mouth (four) Medical times Branch daily as needed for Pain (scale 7-10). methocarbam 2-0 Yes [id number] 500mg Take 1 [facility] 500 mg 8-11 tablet by [facility] tablet 00:00: mouth (four) Medical times [facility] daily as needed for Pain (scale 7-10). methocarbam 2-0 Yes [id number] 500mg Take 1 [facility] 500 mg 8-11 tablet by [facility] tablet 00:00: mouth (four) Medical times [facility] daily as needed for Pain (scale 7-10). methocarbam 2-0 Yes [id number] 500mg Take 1 [facility] 500 mg 8-11 tablet by [facility] tablet 00:00: mouth (four) Medical times [facility] daily as needed for Pain (scale 7-10). methocarbam 2022-0 Yes [id number] 500mg Take 1 [facility] 500 mg 8-11 tablet by [facility] tablet 00:00: mouth (four) Medical times [facility] daily as needed for Pain (scale 7-10). methocarbam 2022-0 Yes [id number] 500mg Take 1 [facility] 500 mg 8-11 tablet by [facility] tablet 00:00: mouth (four) Medical times [facility] daily as needed for Pain (scale 7-10). methocarbam 2022-0 Yes [id number] 500mg Take 1 [facility] 500 mg 8-11 tablet by [facility] tablet 00:00: mouth (four) Medical times [facility] daily as needed for Pain (scale 7-10). methocarbam 2022-0 Yes [id number] 500mg Take 1 [facility] 500 mg 8-11 tablet by [facility] tablet 00:00: mouth (four) Medical times [facility] daily as needed for Pain (scale 7-10). methocarbam 2022-0 Yes [id number] 500mg Take 1 [facility] 500 mg 8-11 tablet by [facility] tablet 00:00: mouth (four) Medical times [facility] daily as needed for Pain (scale 7-10). methocarbam 2022-0 Yes [id number] 500mg Take 1 [facility] 500 mg 8-11 tablet by [facility] tablet 00:00: mouth (four) Medical times Branch daily as needed for Pain (scale 7-10). methocarbam 2022-0 Yes [id number] 500mg Take 1 [facility] 500 mg 8-11 tablet by [facility] tablet 00:00: mouth (four) Medical times [facility] daily as needed for Pain (scale 7-10). methocarbam 2022-0 Yes [id number] 500mg Take 1 [facility] 500 mg 8-11 tablet by [facility] tablet 00:00: mouth (four) Medical times [facility] daily as needed for Pain (scale 7-10). methocarbam 2022-0 Yes [id number] 500mg Take 1 [facility] 500 mg 8-11 tablet by [facility] tablet 00:00: mouth (four) Medical times [facility] daily as needed for Pain (scale 7-10). methocarbam 2022-0 Yes [id number] 500mg Take 1 [facility] 500 mg 8-11 tablet by [facility] tablet 00:00: mouth (four) Medical times Branch daily as needed for Pain (scale 7-10). methocarbam 2022-0 Yes [id number] 500mg Take 1 [facility] 500 mg 8-11 tablet by [facility] tablet 00:00: mouth (four) Medical times [facility] daily as needed for Pain (scale 7-10). methocarbam 2-0 Yes [id number] 500mg Take 1 [facility] 500 mg 8-11 tablet by [facility] tablet 00:00: mouth (four) Medical times [facility] daily as needed for Pain (scale 7-10). methocarbam 2-0 Yes [id number] 500mg Take 1 [facility] 500 mg 8-11 tablet by [facility] tablet 00:00: mouth (four) Medical times [facility] daily as needed for Pain (scale 7-10). methocarbam 2-0 Yes [id number] 500mg Take 1 [facility] 500 mg 8-11 tablet by [facility] tablet 00:00: mouth (four) Medical times [facility] daily as needed for Pain (scale 7-10). methocarbam 2021-0 Yes [id number] 500mg Take 1 [facility] 500 mg 8-11 tablet by [facility] tablet 00:00: mouth (four) Medical times [facility] daily as needed for Pain (scale 7-10). methocarbam 2021-0 Yes [id number] 500mg Take 1 [facility] 500 mg 8-11 tablet by [facility] tablet 00:00: mouth (four) Medical times [facility] daily as needed for Pain (scale 7-10). methocarbam 2-0 Yes [id number] 500mg Take 1 [facility] o[facility] 500 mg 8-11 tablet by [facility] f tablet 00:00: mouth (four) Medical times Branch daily as needed for Pain (scale 7-10). LOSARTAN 50 2021-0 Yes [id number] Take 1 [facility] mg tablet 7-20 tablet by [facility] o f 00:00: mouth twice Medical daily Branch DILTIAZEM 2-0 Yes [id number] Take 1 [facility] 120 mg 24 7-20 capsule by [facility] capsule 00:00: mouth twice Medical daily Branch LOSARTAN 50 2-0 Yes [id number] Take 1 [facility] mg tablet 7-20 tablet by [facility] o f 00:00: mouth twice Medical daily Branch DILTIAZEM 2022-0 Yes [id number] Take 1 [facility] 120 mg 24 7-20 capsule by [facility] hr capsule 00:00: mouth twice Medical daily Branch LOSARTAN 50 2021-0 Yes [id number] Take 1 [facility] mg tablet 7-20 tablet by [facility] o f 00:00: mouth twice Medical daily Branch DILTIAZEM 2021-0 Yes [id number] Take 1 [facility] 120 mg 24 7-20 capsule by [facility] hr capsule 00:00: twice Medical daily Branch LOSARTAN 50 2021-0 Yes [id number] Take 1 [facility] mg tablet 7-20 tablet by [facility] o f 00:00: mouth twice Medical daily Branch DILTIAZEM 2021-0 Yes [id number] Take 1 [facility] 120 mg 24 7-20 capsule by [facility] capsule 00:00: twice Medical daily Branch LOSARTAN 50 2021-0 Yes [id number] Take 1 [facility] mg tablet 7-20 tablet by [facility] o f 00:00: twice Medical daily Branch DILTIAZEM 2021-0 Yes [id number] Take 1 [facility] 120 mg 24 7-20 capsule by [facility] capsule 00:00: twice Medical daily Branch LOSARTAN 50 2021-0 Yes [id number] Take 1 [facility] mg tablet 7-20 tablet by [facility] o f 00:00: twice Medical daily Branch DILTIAZEM 2021-0 Yes [id number] Take 1 [facility] 120 mg 24 7-20 capsule by [facility] hr capsule 00:00: twice Medical daily Branch LOSARTAN 50 2021-0 Yes [id number] Take 1 [facility] mg tablet 7-20 tablet by [facility] o f 00:00: twice Medical daily Branch DILTIAZEM 2021-0 Yes [id number] Take 1 [facility] 120 mg 24 7-20 capsule by [facility] hr capsule 00:00: twice Medical daily Branch LOSARTAN 50 2021-0 Yes [id number] Take 1 [facility] mg tablet 7-20 tablet by [facility] o f 00:00: twice Medical daily Branch DILTIAZEM 2021-0 Yes [id number] Take 1 [facility] 120 mg 24 7-20 capsule by [facility] hr capsule 00:00: twice Medical daily Branch LOSARTAN 50 2021-0 Yes [id number] Take 1 [facility] mg tablet 7-20 tablet by [facility] o f 00:00: twice Medical daily Branch DILTIAZEM 2021-0 Yes [id number] Take 1 [facility] 120 mg 24 7-20 capsule by [facility] hr capsule 00:00: mouth twice Medical daily Branch LOSARTAN 50 2021-0 Yes [id number] Take 1 [facility] mg tablet 7-20 tablet by [facility] o f 00:00: mouth twice Medical daily Branch DILTIAZEM 2021-0 Yes [id number] Take 1 [facility] 120 mg 24 7-20 capsule by [facility] hr capsule 00:00: mouth twice Medical daily Branch LOSARTAN 50 2021-0 Yes [id number] Take 1 [facility] mg tablet 7-20 tablet by [facility] o f 00:00: mouth twice Medical daily Branch DILTIAZEM 2021-0 Yes [id number] Take 1 [facility] [place] 120 mg 24 7-20 capsule by [facility] hr capsule 00:00: mouth twice Medical daily Branch LOSARTAN 50 2021-0 Yes [id number] Take 1 [facility] mg tablet 7-20 tablet by [facility] o f 00:00: mouth twice Medical daily Branch DILTIAZEM 2021-0 Yes [id number] Take 1 [facility] [place] 120 mg 24 7-20 capsule by [facility] hr capsule 00:00: mouth twice Medical daily Branch LOSARTAN 50 2021-0 Yes [id number] Take 1 [facility] mg tablet 7-20 tablet by [facility] o f 00:00: mouth twice Medical daily Branch DILTIAZEM 2021-0 Yes [id number] Take 1 [facility] [place] 120 mg 24 7-20 capsule by [facility] hr capsule 00:00: mouth twice Medical daily Branch LOSARTAN 50 2021-0 Yes [id number] Take 1 [facility] mg tablet 7-20 tablet by [facility] o f 00:00: mouth twice Medical daily Branch DILTIAZEM 2021-0 Yes [id number] Take 1 [facility] [place] 120 mg 24 7-20 capsule by [facility] hr capsule 00:00: mouth twice Medical daily Branch LOSARTAN 50 2021-0 Yes [id number] Take 1 [facility] mg tablet 7-20 tablet by [facility] o f 00:00: mouth twice Medical daily Branch DILTIAZEM 2021-0 Yes [id number] Take 1 [facility] 120 mg 24 7-20 capsule by [facility] capsule 00:00: mouth twice Medical daily Branch LOSARTAN 50 2021-0 Yes [id number] Take 1 [facility] mg tablet 7-20 tablet by [facility] o f 00:00: mouth twice Medical daily Branch DILTIAZEM 2021-0 Yes [id number] Take 1 [facility] 120 mg 24 7-20 capsule by [facility] hr capsule 00:00: mouth twice Medical daily Branch LOSARTAN 50 2021-0 Yes [id number] Take 1 [facility] mg tablet 7-20 tablet by [facility] o f 00:00: mouth twice Medical daily Branch DILTIAZEM 2021-0 Yes [id number] Take 1 [facility] [place] 120 mg 24 7-20 capsule by [facility] hr capsule 00:00: mouth twice Medical daily Branch LOSARTAN 50 2021-0 Yes [id number] Take 1 [facility] mg tablet 7-20 tablet by [facility] o f 00:00: mouth twice Medical daily Branch DILTIAZEM 2021-0 Yes [id number] Take 1 [facility] [place] 120 mg 24 7-20 capsule by [facility] hr capsule 00:00: mouth twice Medical daily Branch LOSARTAN 50 2021-0 Yes [id number] Take 1 [facility] mg tablet 7-20 tablet by [facility] o f 00:00: mouth twice Medical daily Branch DILTIAZEM 2021-0 Yes [id number] Take 1 [facility] [place] 120 mg 24 7-20 capsule by [facility] hr capsule 00:00: mouth twice Medical daily Branch LOSARTAN 50 2021-0 Yes [id number] Take 1 [facility] mg tablet 7-20 tablet by [facility] o f 00:00: mouth twice Medical daily Branch DILTIAZEM 2021-0 Yes [id number] Take 1 [facility] [place] 120 mg 24 7-20 capsule by [facility] hr capsule 00:00: mouth twice Medical daily Branch LOSARTAN 50 2021-0 Yes [id number] Take 1 [facility] mg tablet 7-20 tablet by [facility] o f 00:00: mouth twice Medical daily Branch DILTIAZEM 2021-0 Yes [id number] Take 1 [facility] 120 mg 24 7-20 capsule by [facility] hr capsule 00:00: mouth twice Medical daily Branch LOSARTAN 50 2021-0 Yes [id number] Take 1 [facility] mg tablet 7-20 tablet by [facility] o f 00:00: mouth twice Medical daily Branch DILTIAZEM 2021-0 Yes [id number] Take 1 [facility] [place] 120 mg 24 7-20 capsule by [facility] hr capsule 00:00: mouth twice Medical daily Branch LOSARTAN 50 2021-0 Yes [id number] Take 1 [facility] mg tablet 7-20 tablet by [facility] o f 00:00: mouth twice Medical daily Branch DILTIAZEM 2021-0 Yes [id number] Take 1 [facility] [place] 120 mg 24 7-20 capsule by [facility] hr capsule 00:00: mouth twice Medical daily Branch LOSARTAN 50 2021-0 Yes [id number] Take 1 [facility] mg tablet 7-20 tablet by [facility] o f 00:00: mouth twice Medical daily Branch DILTIAZEM 2021-0 Yes [id number] Take 1 [facility] 120 mg 24 7-20 capsule by [facility] hr capsule 00:00: mouth twice Medical daily Branch LOSARTAN 50 2021-0 Yes [id number] Take 1 [facility] mg tablet 7-20 tablet by [facility] o f 00:00: mouth twice Medical daily Branch DILTIAZEM 2021-0 Yes [id number] Take 1 [facility] 120 mg 24 7-20 capsule by [facility] capsule 00:00: mouth twice Medical daily Branch LOSARTAN 50 2021-0 Yes [id number] Take 1 [facility] mg tablet 7-20 tablet by [facility] o f 00:00: mouth twice Medical daily Branch DILTIAZEM 2021-0 Yes [id number] Take 1 [facility] 120 mg 24 7-20 capsule by [facility] capsule 00:00: mouth twice Medical daily Branch LOSARTAN 50 2021-0 Yes [id number] Take 1 [facility] mg tablet 7-20 tablet by [facility] o f 00:00: mouth twice Medical daily Branch DILTIAZEM 2021-0 Yes [id number] Take 1 [facility] 120 mg 24 7-20 capsule by [facility] capsule 00:00: mouth twice Medical daily Branch LOSARTAN 50 2021-0 Yes [id number] Take 1 [facility] mg tablet 7-20 tablet by [facility] o f 00:00: mouth twice Medical daily Branch DILTIAZEM 2021-0 Yes [id number] Take 1 [facility] 120 mg 24 7-20 capsule by [facility] hr capsule 00:00: mouth twice Medical daily Branch LOSARTAN 50 2021-0 Yes [id number] Take 1 [facility] mg tablet 7-20 tablet by [facility] o f 00:00: mouth 00 twice Medical daily Branch DILTIAZEM 2021-0 Yes [id number] Take 1 [facility] 120 mg 24 7-20 capsule by [facility] capsule 00:00: mouth 00 twice Medical daily Branch LOSARTAN 50 2021-0 Yes [id number] Take 1 [facility] mg tablet 7-20 tablet by [facility] o f 00:00: mouth twice Medical daily Branch DILTIAZEM 2021-0 Yes [id number] Take 1 [facility] 120 mg 24 7-20 capsule by [facility] capsule 00:00: mouth 00 twice Medical daily Branch LOSARTAN 50 2021-0 Yes [id number] Take 1 [facility] mg tablet 7-20 tablet by [facility] o f 00:00: mouth twice Medical daily Branch DILTIAZEM 2021-0 Yes [id number] Take 1 [facility] 120 mg 24 7-20 capsule by [facility] hr capsule 00:00: mouth twice Medical daily Branch LOSARTAN 50 2021-0 Yes [id number] Take 1 [facility] mg tablet 7-20 tablet by [facility] o f 00:00: mouth twice Medical daily Branch DILTIAZEM 2021-0 Yes [id number] Take 1 [facility] 120 mg 24 7-20 capsule by [facility] hr capsule 00:00: mouth twice Medical daily Branch LOSARTAN 50 2021-0 2021- No [id number] Take 1 [facility] mg tablet 7-20 10-13 tablet by [facility] of 00:00: 00:00 mouth [place] 00 :00 twice Medical daily Branch DILTIAZEM 2021-0 2021- No [id number] Take 1 [facility] 120 mg 24 7-20 10-13 capsule by [facility] hr capsule 00:00: 00:00 mouth [place] 00 :00 twice Medical daily Branch methocarbam 2021-0 Yes [id number] 500mg Take 1 [facility] oL 500 mg 7-02 tablet by [facility] o f tablet 00:00: mouth (four) Medical times Branch daily. methocarbam 2021-0 Yes [id number] 500mg Take 1 [facility] oL 500 mg 7-02 tablet by [facility] o f tablet 00:00: mouth 4 (four) Medical times Branch daily. methocarbam 2021-0 Yes [id number] 500mg Take 1 [facility] oL 500 mg 7-02 tablet by [facility] o f tablet 00:00: mouth 4 [place] 00 (four) Medical times Branch daily. methocarbam 2021-0 Yes [id number] 500mg Take 1 [facility] oL 500 mg 7-02 tablet by [facility] o f tablet 00:00: mouth 4 [place] 00 (four) Medical times Branch daily. methocarbam 2021-0 Yes [id number] 500mg Take 1 [facility] oL 500 mg 7-02 tablet by [facility] o f tablet 00:00: mouth 4 [place] 00 (four) Medical times Branch daily. methocarbam 2021-0 2022- No [id number] 500mg Take 1 [facility] oL 500 mg 7-02 08-11 tablet by [facility] tablet 00:00: 00:00 mouth 4 [place] 00 :00 (four) Medical times Branch daily. SUMATRIPTAN 2021-0 Yes [id number] TAKE 1 [facility] 50 mg 6-17 TABLET BY [facility] tablet 00:00: MOUTH [place] 00 NEEDED FOR Medical MIGRAINE Branch HEADACHE (MAY REPEAT IN TWO HOURS) SUMATRIPTAN 2021-0 Yes [id number] TAKE 1 [facility] 50 mg 6-17 TABLET BY [facility] tablet 00:00: MOUTH [place] 00 NEEDED FOR Medical MIGRAINE Branch HEADACHE (MAY REPEAT IN TWO HOURS) SUMATRIPTAN 2021-0 Yes [id number] TAKE 1 [facility] 50 mg 6-17 TABLET BY [facility] tablet 00:00: MOUTH [place] 00 NEEDED FOR Medical MIGRAINE Branch HEADACHE (MAY REPEAT IN TWO HOURS) SUMATRIPTAN 2021-0 Yes [id number] TAKE 1 [facility] 50 mg 6-17 TABLET BY [facility] tablet 00:00: MOUTH [place] 00 NEEDED FOR Medical MIGRAINE Branch HEADACHE (MAY REPEAT IN TWO HOURS) SUMATRIPTAN 2-0 Yes [id number] TAKE 1 [facility] 50 mg 6-17 TABLET BY [facility] tablet 00:00: MOUTH [place] 00 NEEDED FOR Medical MIGRAINE Branch HEADACHE (MAY REPEAT IN TWO HOURS) SUMATRIPTAN 2-0 Yes [id number] TAKE 1 [facility] 50 mg 6-17 TABLET BY [facility] tablet 00:00: MOUTH [place] 00 NEEDED FOR Medical MIGRAINE Branch HEADACHE (MAY REPEAT IN TWO HOURS) SUMATRIPTAN 2-0 Yes [id number] TAKE 1 [facility] 50 mg 6-17 TABLET BY [facility] tablet 00:00: MOUTH [place] 00 NEEDED FOR Medical MIGRAINE Branch HEADACHE (MAY REPEAT IN TWO HOURS) SUMATRIPTAN 2-0 Yes [id number] TAKE 1 [facility] 50 mg 6-17 TABLET BY [facility] tablet 00:00: MOUTH [place] 00 NEEDED FOR Medical MIGRAINE Branch HEADACHE (MAY REPEAT IN TWO HOURS) SUMATRIPTAN 2021-0 Yes [id number] TAKE 1 [facility] 50 mg 6-17 TABLET BY [facility] tablet 00:00: MOUTH [place] 00 NEEDED FOR Medical MIGRAINE Branch HEADACHE (MAY REPEAT IN TWO HOURS) SUMATRIPTAN 2-0 Yes [id number] TAKE 1 [facility] 50 mg 6-17 TABLET BY [facility] tablet 00:00: MOUTH [place] 00 NEEDED FOR Medical MIGRAINE Branch HEADACHE (MAY REPEAT IN TWO HOURS) SUMATRIPTAN 2021-0 Yes [id number] TAKE 1 [facility] 50 mg 6-17 TABLET BY [facility] tablet 00:00: MOUTH [place] 00 NEEDED FOR Medical MIGRAINE Branch HEADACHE (MAY REPEAT IN TWO HOURS) SUMATRIPTAN 2021-0 Yes [id number] TAKE 1 [facility] 50 mg 6-17 TABLET BY [facility] tablet 00:00: MOUTH [place] 00 NEEDED FOR Medical MIGRAINE Branch HEADACHE (MAY REPEAT IN TWO HOURS) SUMATRIPTAN 2021-0 Yes [id number] TAKE 1 [facility] 50 mg 6-17 TABLET BY [facility] tablet 00:00: MOUTH [place] 00 NEEDED FOR Medical MIGRAINE Branch HEADACHE (MAY REPEAT IN TWO HOURS) SUMATRIPTAN 2021-0 Yes [id number] TAKE 1 [facility] 50 mg 6-17 TABLET BY [facility] tablet 00:00: MOUTH [place] 00 NEEDED FOR Medical MIGRAINE Branch HEADACHE (MAY REPEAT IN TWO HOURS) SUMATRIPTAN 2-0 Yes [id number] TAKE 1 [facility] 50 mg 6-17 TABLET BY [facility] tablet 00:00: MOUTH [place] 00 NEEDED FOR Medical MIGRAINE Branch HEADACHE (MAY REPEAT IN TWO HOURS) SUMATRIPTAN 2-0 Yes [id number] TAKE 1 [facility] 50 mg 6-17 TABLET BY [facility] tablet 00:00: MOUTH [place] 00 NEEDED FOR Medical MIGRAINE Branch HEADACHE (MAY REPEAT IN TWO HOURS) SUMATRIPTAN 2-0 Yes [id number] TAKE 1 [facility] 50 mg 6-17 TABLET BY [facility] tablet 00:00: MOUTH [place] 00 NEEDED FOR Medical MIGRAINE Branch HEADACHE (MAY REPEAT IN TWO HOURS) SUMATRIPTAN 2022-0 2022- No [id number] TAKE 1 [facility] 50 mg 6-17 09-06 TABLET BY [facility] tablet 00:00: 00:00 MOUTH [place] 00 :00 NEEDED FOR Medical MIGRAINE Branch HEADACHE (MAY REPEAT IN TWO HOURS) SUMATRIPTAN 0 2- No [id number] TAKE 1 [facility] 50 mg 6-17 - TABLET BY [facility] tablet 00:00: 00:00 MOUTH [place] 00 :00 NEEDED FOR Medical MIGRAINE Branch HEADACHE (MAY REPEAT IN TWO HOURS) fexofenadin 2021-0 Yes [id number] 180mg Take 1 [facility] e (LUIS 6-13 tablet by [facility] of ALLERGY) 00:00: mouth [place] 180 mg 00 daily. Medical tablet Branch fexofenadin 2021-0 Yes [id number] 180mg Take 1 [facility] e (LUIS 6-13 tablet by [facility] of ALLERGY) 00:00: mouth [place] 180 mg 00 daily. Medical tablet Branch fexofenadin 0 Yes [id number] 180mg Take 1 [facility] e (LUIS 6-13 tablet by [facility] of ALLERGY) 00:00: mouth [place] 180 mg 00 daily. Medical tablet Branch fexofenadin 0 Yes [id number] 180mg Take 1 [facility] e (LUIS 6-13 tablet by [facility] of ALLERGY) 00:00: mouth [place] 180 mg 00 daily. Medical tablet Branch fexofenadin 0 Yes [id number] 180mg Take 1 [facility] e (LUIS 6-13 tablet by [facility] of ALLERGY) 00:00: mouth [place] 180 mg 00 daily. Medical tablet Branch fexofenadin 2021-0 Yes [id number] 180mg Take 1 [facility] e (LUIS 6-13 tablet by [facility] of ALLERGY) 00:00: mouth [place] 180 mg 00 daily. Medical tablet Branch fexofenadin 0 Yes [id number] 180mg Take 1 [facility] e (LUIS 6-13 tablet by [facility] of ALLERGY) 00:00: mouth [place] 180 mg 00 daily. Medical tablet Branch fexofenadin 0 Yes [id number] 180mg Take 1 [facility] e (LUIS 6-13 tablet by [facility] of ALLERGY) 00:00: mouth [place] 180 mg 00 daily. Medical tablet Branch fexofenadin 0 Yes [id number] 180mg Take 1 [facility] e (LUIS 6-13 tablet by [facility] of ALLERGY) 00:00: mouth [place] 180 mg 00 daily. Medical tablet Branch fexofenadin 2021-0 Yes [id number] 180mg Take 1 [facility] e (LUIS 6-13 tablet by [facility] of ALLERGY) 00:00: mouth [place] 180 mg 00 daily. Medical tablet Branch fexofenadin 0 Yes [id number] 180mg Take 1 [facility] e (LUIS 6-13 tablet by [facility] of ALLERGY) 00:00: mouth [place] 180 mg 00 daily. Medical tablet Branch fexofenadin 0 Yes [id number] 180mg Take 1 [facility] e (LUIS 6-13 tablet by [facility] of ALLERGY) 00:00: mouth [place] 180 mg 00 daily. Medical tablet Branch fexofenadin 0 Yes [id number] 180mg Take 1 [facility] e (LUIS 6-13 tablet by [facility] of ALLERGY) 00:00: mouth [place] 180 mg 00 daily. Medical tablet Branch fexofenadin Yes [id number] 180mg Take 1 [facility] e (LUIS 6-13 tablet by [facility] of ALLERGY) 00:00: mouth [place] 180 mg 00 daily. Medical tablet Branch fexofenadin Yes [id number] 180mg Take 1 [facility] e (LUIS 6-13 tablet by [facility] of ALLERGY) 00:00: mouth [place] 180 mg 00 daily. Medical tablet Branch fexofenadin 0 Yes [id number] 180mg Take 1 [facility] e (LUIS 6-13 tablet by [facility] of ALLERGY) 00:00: mouth [place] 180 mg 00 daily. Medical tablet Branch fexofenadin 0 Yes [id number] 180mg Take 1 [facility] e (LUIS 6-13 tablet by ity of ALLERGY) 00:00: mouth [place] 180 mg 00 daily. Medical tablet Branch fexofenadin 0 Yes [id number] 180mg Take 1 [facility] e (LUIS 6-13 tablet by ity of ALLERGY) 00:00: mouth [place] 180 mg 00 daily. Medical tablet Branch fexofenadin 0 Yes [id number] 180mg Take 1 [facility] e (LUIS 6-13 tablet by ity of ALLERGY) 00:00: mouth [place] 180 mg 00 daily. Medical tablet Branch fexofenadin 2021-0 Yes [id number] 180mg Take 1 [facility] e (LUIS 6-13 tablet by ity of ALLERGY) 00:00: mouth [place] 180 mg 00 daily. Medical tablet Branch fexofenadin 0 Yes [id number] 180mg Take 1 [facility] e (LUIS 6-13 tablet by ity of ALLERGY) 00:00: mouth [place] 180 mg 00 daily. Medical tablet Branch fexofenadin 0 Yes [id number] 180mg Take 1 [facility] e (LUIS 6-13 tablet by ity of ALLERGY) 00:00: mouth [place] 180 mg 00 daily. Medical tablet Branch fexofenadin 0 Yes [id number] 180mg Take 1 [facility] e (LUIS 6-13 tablet by ity of ALLERGY) 00:00: mouth [place] 180 mg 00 daily. Medical tablet Branch fexofenadin Yes [id number] 180mg Take 1 [facility] e (LUIS 6-13 tablet by ity of ALLERGY) 00:00: mouth [place] 180 mg 00 daily. Medical tablet Branch fexofenadin Yes [id number] 180mg Take 1 [facility] e (LUIS 6-13 tablet by ity of ALLERGY) 00:00: mouth [place] 180 mg 00 daily. Medical tablet Branch fexofenadin Yes [id number] 180mg Take 1 [facility] e (LUIS 6-13 tablet by ity of ALLERGY) 00:00: mouth [place] 180 mg 00 daily. Medical tablet Branch fexofenadin Yes [id number] 180mg Take 1 [facility] e (LUIS 6-13 tablet by ity of ALLERGY) 00:00: mouth [place] 180 mg 00 daily. Medical tablet Branch fexofenadin 0 Yes [id number] 180mg Take 1 [facility] e (LUIS 6-13 tablet by ity of ALLERGY) 00:00: mouth [place] 180 mg 00 daily. Medical tablet Branch fexofenadin 0 Yes [id number] 180mg Take 1 [facility] e (LUIS 6-13 tablet by ity of ALLERGY) 00:00: mouth [place] 180 mg 00 daily. Medical tablet Branch fexofenadin 0 Yes [id number] 180mg Take 1 [facility] e (LUIS 6-13 tablet by ity of ALLERGY) 00:00: mouth [place] 180 mg 00 daily. Medical tablet Branch fexofenadin 0 Yes [id number] 180mg Take 1 [facility] e (LUIS 6-13 tablet by ity of ALLERGY) 00:00: mouth [place] 180 mg 00 daily. Medical tablet Branch fexofenadin Yes [id number] 180mg Take 1 [facility] e (LUIS 6-13 tablet by ity of ALLERGY) 00:00: mouth [place] 180 mg 00 daily. Medical tablet Branch fexofenadin Yes [id number] 180mg Take 1 [facility] e (LUIS 6-13 tablet by ity of ALLERGY) 00:00: mouth [place] 180 mg 00 daily. Medical tablet Branch fexofenadin Yes [id number] 180mg Take 1 [facility] e (LUIS 6-13 tablet by ity of ALLERGY) 00:00: mouth [place] 180 mg 00 daily. Medical tablet Branch fexofenadin Yes [id number] 180mg Take 1 [facility] e (LUIS 6-13 tablet by ity of ALLERGY) 00:00: mouth [place] 180 mg 00 daily. Medical tablet Branch fexofenadin Yes [id number] 180mg Take 1 [facility] e (LUIS 6-13 tablet by ity of ALLERGY) 00:00: mouth [place] 180 mg 00 daily. Medical tablet Branch fexofenadin Yes [id number] 180mg Take 1 [facility] e (LUIS 6-13 tablet by ity of ALLERGY) 00:00: mouth [place] 180 mg 00 daily. Medical tablet Branch fexofenadin Yes [id number] 180mg Take 1 [facility] e (LUIS 6-13 tablet by ity of ALLERGY) 00:00: mouth [place] 180 mg 00 daily. Medical tablet Branch fexofenadin Yes [id number] 180mg Take 1 [facility] e (LUIS 6-13 tablet by ity of ALLERGY) 00:00: mouth [place] 180 mg 00 daily. Medical tablet Branch fexofenadin Yes [id number] 180mg Take 1 [facility] e (LUIS 6-13 tablet by ity of ALLERGY) 00:00: mouth [place] 180 mg 00 daily. Medical tablet Branch fexofenadin Yes [id number] 180mg Take 1 [facility] e (LUIS 6-13 tablet by ity of ALLERGY) 00:00: mouth [place] 180 mg 00 daily. Medical tablet Branch fexofenadin Yes [id number] 180mg Take 1 [facility] e (LUIS 6-13 tablet by ity of ALLERGY) 00:00: mouth [place] 180 mg 00 daily. Medical tablet Branch fexofenadin Yes [id number] 180mg Take 1 [facility] e (LUIS 6-13 tablet by ity of ALLERGY) 00:00: mouth [place] 180 mg 00 daily. Medical tablet Branch fexofenadin Yes [id number] 180mg Take 1 [facility] e (LUIS 6-13 tablet by ity of ALLERGY) 00:00: mouth [place] 180 mg 00 daily. Medical tablet Branch fexofenadin Yes [id number] 180mg Take 1 [facility] e (LUIS 6-13 tablet by ity of ALLERGY) 00:00: mouth [place] 180 mg 00 daily. Medical tablet Branch fexofenadin Yes [id number] 180mg Take 1 [facility] e (LUIS 6-13 tablet by ity of ALLERGY) 00:00: mouth [place] 180 mg 00 daily. Medical tablet Branch fexofenadin Yes [id number] 180mg Take 1 [facility] e (LUIS 6-13 tablet by ity of ALLERGY) 00:00: mouth [place] 180 mg 00 daily. Medical tablet Branch fexofenadin Yes [id number] 180mg Take 1 [facility] e (LUIS 6-13 tablet by ity of ALLERGY) 00:00: mouth [place] 180 mg 00 daily. Medical tablet Branch fexofenadin Yes [id number] 180mg Take 1 [facility] e (LUIS 6-13 tablet by ity of ALLERGY) 00:00: mouth [place] 180 mg 00 daily. Medical tablet Branch fexofenadin Yes [id number] 180mg Take 1 [facility] e (LUIS 6-13 tablet by ity of ALLERGY) 00:00: mouth [place] 180 mg 00 daily. Medical tablet Branch fexofenadin Yes [id number] 180mg Take 1 [facility] e (LUIS 6-13 tablet by ity of ALLERGY) 00:00: mouth [place] 180 mg 00 daily. Medical tablet Branch fexofenadin Yes [id number] 180mg Take 1 [facility] e (LUIS 6-13 tablet by ity of ALLERGY) 00:00: mouth [place] 180 mg 00 daily. Medical tablet Branch fexofenadin Yes [id number] 180mg Take 1 [facility] e (LUIS 6-13 tablet by ity of ALLERGY) 00:00: mouth [place] 180 mg 00 daily. Medical tablet Branch fexofenadin 0 Yes [id number] 180mg Take 1 [facility] (LUIS 6-13 tablet by ity of ALLERGY) 00:00: mouth [place] 180 mg 00 daily. Medical tablet Branch fexofenadin Yes [id number] 180mg Take 1 [facility] (LUIS 6-13 tablet by ity of ALLERGY) 00:00: mouth [place] 180 mg 00 daily. Medical tablet Branch fexofenadin Yes [id number] 180mg Take 1 [facility] e (LUIS 6-13 tablet by ity of ALLERGY) 00:00: mouth [place] 180 mg 00 daily. Medical tablet Branch fexofenadin Yes [id number] 180mg Take 1 [facility] e (LUIS 6-13 tablet by ity of ALLERGY) 00:00: mouth [place] 180 mg 00 daily. Medical tablet Branch fexofenadin Yes [id number] 180mg Take 1 [facility] e (LUIS 6-13 tablet by ity of ALLERGY) 00:00: mouth [place] 180 mg 00 daily. Medical tablet Branch fexofenadin Yes [id number] 180mg Take 1 [facility] (LUIS 6-13 tablet by ity of ALLERGY) 00:00: mouth [place] 180 mg 00 daily. Medical tablet Branch fexofenadin Yes [id number] 180mg Take 1 [facility] (LUIS 6-13 tablet by ity of ALLERGY) 00:00: mouth [place] 180 mg 00 daily. Medical tablet Branch fexofenadin Yes [id number] 180mg Take 1 [facility] (LUIS 6-13 tablet by ity of ALLERGY) 00:00: mouth [place] 180 mg 00 daily. Medical tablet Branch fexofenadin Yes [id number] 180mg Take 1 [facility] (LUIS 6-13 tablet by ity of ALLERGY) 00:00: mouth [place] 180 mg 00 daily. Medical tablet Branch fexofenadin Yes [id number] 180mg Take 1 [facility] e (LUIS 6-13 tablet by ity of ALLERGY) 00:00: mouth [place] 180 mg 00 daily. Medical tablet Branch fexofenadin 2022-0 Yes [id number] 180mg Take 1 [facility] e (LUIS 6-13 tablet by ity of ALLERGY) 00:00: mouth [place] 180 mg 00 daily. Medical tablet Branch fexofenadin Yes [id number] 180mg Take 1 [facility] e (LUIS 6-13 tablet by ity of ALLERGY) 00:00: mouth [place] 180 mg 00 daily. Medical tablet Branch fexofenadin Yes [id number] 180mg Take 1 [facility] e (LUIS 6-13 tablet by ity of ALLERGY) 00:00: mouth [place] 180 mg 00 daily. Medical tablet Branch fexofenadin Yes [id number] 180mg Take 1 [facility] (LUIS 6-13 tablet by ity of ALLERGY) 00:00: mouth [place] 180 mg 00 daily. Medical tablet Branch fexofenadin Yes [id number] 180mg Take 1 [facility] (LUIS 6-13 tablet by ity of ALLERGY) 00:00: mouth [place] 180 mg 00 daily. Medical tablet Branch rosuvastati Yes [id number] 10mg Take 1 [facility] n 10 mg 6-08 tablet by ity of tablet 00:00: mouth at [place] 00 bedtime. Medical Branch rosuvastati Yes [id number] 10mg Take 1 [facility] n 10 mg 6-08 tablet by ity of tablet 00:00: mouth at [place] 00 bedtime. Medical Branch rosuvastati Yes [id number] 10mg Take 1 [facility] n 10 mg 6-08 tablet by ity of tablet 00:00: mouth at [place] 00 bedtime. Medical Branch rosuvastati Yes [id number] 10mg Take 1 [facility] n 10 mg 6-08 tablet by ity of tablet 00:00: mouth at [place] 00 bedtime. Medical Branch rosuvastati Yes [id number] 10mg Take 1 [facility] n 10 mg 6-08 tablet by ity of tablet 00:00: mouth at [place] 00 bedtime. Medical Branch rosuvastati Yes [id number] 10mg Take 1 [facility] n 10 mg 6-08 tablet by ity of tablet 00:00: mouth at [place] 00 bedtime. Medical Branch rosuvastati Yes [id number] 10mg Take 1 [facility] n 10 mg 6-08 tablet by ity of tablet 00:00: mouth at [place] [address] bedtime. Medical Branch rosuvastati Yes [id number] 10mg Take 1 [facility] n 10 mg 6-08 tablet by ity of tablet 00:00: mouth at [place] bedtime. Medical Branch rosuvastati Yes [id number] 10mg Take 1 [facility] n 10 mg 6-08 tablet by ity of tablet 00:00: mouth at [place] [address] bedtime. Medical Branch rosuvastati Yes [id number] 10mg Take 1 [facility] n 10 mg 6-08 tablet by ity of tablet 00:00: mouth at [place] bedtime. Medical Branch rosuvastati Yes [id number] 10mg Take 1 [facility] n 10 mg 6-08 tablet by ity of tablet 00:00: mouth at [place] bedtime. Medical Branch rosuvastati Yes [id number] 10mg Take 1 [facility] n 10 mg 6-08 tablet by ity of tablet 00:00: mouth at [place] [address] bedtime. Medical Branch rosuvastati Yes [id number] 10mg Take 1 [facility] n 10 mg 6-08 tablet by ity of tablet 00:00: mouth at [place] [address] bedtime. Medical Branch rosuvastati Yes [id number] 10mg Take 1 [facility] n 10 mg 6-08 tablet by ity of tablet 00:00: mouth at [place] [address] bedtime. Medical Branch rosuvastati Yes [id number] 10mg Take 1 [facility] n 10 mg 6-08 tablet by ity of tablet 00:00: mouth at [place] [address] bedtime. Medical Branch rosuvastati 2021- Yes [id number] 10mg Take 1 [facility] n 10 mg 6-08 tablet by ity of tablet 00:00: mouth at [place] [address] bedtime. Medical Branch rosuvastati 2021-0 Yes [id number] 10mg Take 1 [facility] n 10 mg 6-08 tablet by ity of tablet 00:00: mouth at [place] [address] bedtime. Medical Branch rosuvastati 0 Yes [id number] 10mg Take 1 [facility] n 10 mg 6-08 tablet by ity of tablet 00:00: mouth at [place] [address] bedtime. Medical Branch rosuvastati 2021-0 Yes [id number] 10mg Take 1 [facility] n 10 mg 6-08 tablet by ity of tablet 00:00: mouth at [place] [address] bedtime. Medical Branch rosuvastati 2021- Yes [id number] 10mg Take 1 [facility] n 10 mg 6-08 tablet by ity of tablet 00:00: mouth at [place] bedtime. Medical Branch rosuvastati 2021- Yes [id number] 10mg Take 1 [facility] n 10 mg 6-08 tablet by ity of tablet 00:00: mouth at [place] bedtime. Medical Branch rosuvastati 2021-0 Yes [id number] 10mg Take 1 [facility] n 10 mg 6-08 tablet by ity of tablet 00:00: mouth at [place] bedtime. Medical Branch rosuvastati 2021-0 Yes [id number] 10mg Take 1 [facility] n 10 mg 6-08 tablet by ity of tablet 00:00: mouth at [place] bedtime. Medical Branch rosuvastati 2021- Yes [id number] 10mg Take 1 [facility] n 10 mg 6-08 tablet by ity of tablet 00:00: mouth at [place] [address] bedtime. Medical Branch rosuvastati Yes [id number] 10mg Take 1 [facility] n 10 mg 6-08 tablet by ity of tablet 00:00: mouth at [place] bedtime. Medical Branch rosuvastati Yes [id number] 10mg Take 1 [facility] n 10 mg 6-08 tablet by ity of tablet 00:00: mouth at [place] [address] bedtime. Medical Branch rosuvastati Yes [id number] 10mg Take 1 [facility] n 10 mg 6-08 tablet by ity of tablet 00:00: mouth at [place] [address] bedtime. Medical Branch rosuvastati 2021-0 Yes [id number] 10mg Take 1 [facility] n 10 mg 6-08 tablet by ity of tablet 00:00: mouth at [place] [address] bedtime. Medical Branch rosuvastati 2021-0 Yes [id number] 10mg Take 1 [facility] n 10 mg 6-08 tablet by ity of tablet 00:00: mouth at [place] [address] bedtime. Medical Branch rosuvastati 2021-0 Yes [id number] 10mg Take 1 [facility] n 10 mg 6-08 tablet by ity of tablet 00:00: mouth at [place] [address] bedtime. Medical Branch rosuvastati 2021-0 Yes [id number] 10mg Take 1 [facility] n 10 mg 6-08 tablet by ity of tablet 00:00: mouth at [place] 00 bedtime. Medical Branch rosuvastati Yes [id number] 10mg Take 1 [facility] n 10 mg 6-08 tablet by ity of tablet 00:00: mouth at [place] bedtime. Medical Branch rosuvastati Yes [id number] 10mg Take 1 [facility] n 10 mg 6-08 tablet by ity of tablet 00:00: mouth at [place] [address] bedtime. Medical Branch rosuvastati Yes [id number] 10mg Take 1 [facility] n 10 mg 6-08 tablet by ity of tablet 00:00: mouth at [place] bedtime. Medical Branch rosuvastati Yes [id number] 10mg Take 1 [facility] n 10 mg 6-08 tablet by ity of tablet 00:00: mouth at [place] bedtime. Medical Branch rosuvastati Yes [id number] 10mg Take 1 [facility] n 10 mg 6-08 tablet by ity of tablet 00:00: mouth at [place] [address] bedtime. Medical Branch rosuvastati Yes [id number] 10mg Take 1 [facility] n 10 mg 6-08 tablet by ity of tablet 00:00: mouth at [place] [address] bedtime. Medical Branch rosuvastati Yes [id number] 10mg Take 1 [facility] n 10 mg 6-08 tablet by ity of tablet 00:00: mouth at [place] [address] bedtime. Medical Branch rosuvastati Yes [id number] 10mg Take 1 [facility] n 10 mg 6-08 tablet by ity of tablet 00:00: mouth at [place] [address] bedtime. Medical Branch rosuvastati Yes [id number] 10mg Take 1 [facility] n 10 mg 6-08 tablet by ity of tablet 00:00: mouth at [place] [address] bedtime. Medical Branch rosuvastati Yes [id number] 10mg Take 1 [facility] n 10 mg 6-08 tablet by ity of tablet 00:00: mouth at [place] [address] bedtime. Medical Branch rosuvastati Yes [id number] 10mg Take 1 [facility] n 10 mg 6-08 tablet by ity of tablet 00:00: mouth at [place] [address] bedtime. Medical Branch rosuvastati Yes [id number] 10mg Take 1 [facility] n 10 mg 6-08 tablet by ity of tablet 00:00: mouth at [place] 00 bedtime. [facility] rosuvastati Yes [id number] 10mg Take 1 Univers n 10 mg 6-08 tablet by ity of tablet 00:00: mouth at [place] 00 bedtime. [facility] rosuvastati Yes [id number] 10mg Take 1 [facility] n 10 mg 6-08 tablet by ity of tablet 00:00: mouth at [place] 00 bedtime. [facility] rosuvastati 2021- No [id number] 10mg Take 1 Univers n 10 mg 6-08 10-13 tablet by ity of tablet 00:00: 00:00 mouth at [place] 00 :00 bedtime. [facility] water for 2021- No PRN, Univers irrigation 03-02 Starting ity of irrigation 14:20: 15:50 [place] solution 00 :27 03/02/22 at Medica l 0920, Branch Until Tue03/02/22 at 1050, Routine, Intra-op simethicone 2021- No PRN, [facility] (GAS RELIEF 03-02 Starting ity of (SIMETHICON 14:20: 15:50 on e [place] as E)) 40 00 :27 03/02/22 at Medical mg/0.6 mL 0920, Branch drops Until Tue03/02/22 at 1050, Routine, Intra-op lactated 2021- No 1000mL at 42 [facility] ringers IV 03-02- mL/hr, ity of infusion 12:45: 12:59 1,000 mL, E[place] as 1,000 mL 00 :00 IV Medical Infusion, Branch ONCE, 1 dose, On Tue03/02/22 at 0745, Routine, DSU Pre-op lactated 2021- No 1000mL at 42 Unive rs ringers IV 03-02 06-07 mL/hr, ity of infusion 12:45: 12:59 1,000 mL, [place] as 1,000 mL 00 :00 IV Medical Infusion, Branch ONCE, 1 dose, On Tue03/02/22 at 0745, Routine, DSU Pre-op FOLIC ACID Yes Take by Univ ers ORAL 6-07 mouth ity of 11:23: daily. [place] [facility] MULTIVIT Yes Take by Univer s &MINERALS/F 6-07 mouth. ity of ERROUS FUM 11:23: [place] (MULTI 09 Medical VITAMIN Branch ORAL) METHYLCELLU Yes Univer s LOSE (FIBER 6-07 ity of THERAPY 11:23: [place] [facility]) 09 Medical Branch DOCUSATE Yes Take by [...] by ity of vitamin D3, 11:23: mouth [place] (VITAMIN 09 daily. Medical D3) 1,000 Branch unit tablet CRANBERRY Yes Take by [facility] rs FRUIT 6-07 mouth ity of EXTRACT 11:23: daily. [place] (CRANBERRY 09 Medical ORAL) Branch CALCIUM Yes Take by Univers ORAL 6-07 mouth ity of 11:23: daily. [place] [address] Medical Branch DOCOSAHEXAN Yes 1000mg Take 1,000 Univers OIC 6-07 mg by ity of ACID/EPA 11:23: mouth [place] (FISH OIL 09 daily. Medical ORAL) Branch BIOTIN ORAL Yes Take by Uni vers 6-07 mouth. ity of 11:23: [place] [address] Medical Branch FOLIC ACID Yes Take by Univ ers ORAL 6-07 mouth ity of 11:23: daily. [place] [address] Medical Branch MULTIVIT Yes Take by [facility] &MIN[facility]ALS/F 6-07 mouth. ity of ERROUS FUM 11:23: [place] (MULTI 09 Medical VITAMIN Branch ORAL) METHYLCELLU Yes Univer s LOSE (FIBER 6-07 ity of THERAPY 11:23: [place] MIS) 09 Medical Branch DOCUSATE Yes Take by [facility] s SODIUM 6-07 mouth. ity of [...] 6-07 mouth ity of EXTRACT 11:23: daily. [place] (CRANBERRY Medical ORAL) Branch CALCIUM Yes Take by Univers ORAL 6-07 mouth ity of 11:23: daily. [place] Medical Branch DOCOSAHEXAN Yes 1000mg Take 1,000 Univers OIC 6-07 mg by ity of ACID/EPA 11:23: mouth [place] (FISH OIL 09 daily. Medical ORAL) Branch BIOTIN ORAL Yes Take by Uni vers 6-07 mouth. ity of 11:23: Medical Branch FOLIC ACID Yes Take by Univ ers ORAL 6-07 mouth ity of 11:23: daily. [place] [facility] Branch MULTIVIT Yes Take by Univer s &MINERALS/F 6-07 mouth. ity of ERROUS FUM 11:23: [place] (MULTI 09 Medical VITAMIN Branch ORAL) METHYLCELLU Yes Univer s LOSE (FIBER 6-07 ity of THERAPY 11:23: [place] MISC) 09 Medical Branch DOCUSATE Yes Take [...] 6-07 mouth ity of EXTRACT 11:23: daily. [place] (CRANBERRY 09 Medical ORAL) Branch CALCIUM Yes [...] ORAL 6-07 mouth ity of 11:23: daily. [place] [facility] Branch MULTIVIT Yes Take by [facility] &MIN[facility]ALS/F 6-07 mouth. ity of ERROUS FUM 11:23: [place] (MULTI 09 Medical VITAMIN Branch ORAL) METHYLCELLU Yes [facility] s LOSE (FIBER 6-07 ity of THERAPY 11:23: [place] MISC) 09 Medical Branch DOCUSATE Yes Take by [facility] SODIUM 6-07 mouth. ity [...] CRANBERRY Yes Take by [facility] rs FRUIT 6-07 mouth ity of EXTRACT 11:23: daily. [place] (CRANBERRY Medical ORAL) Branch CALCIUM Yes Take by Univers ORAL 6-07 mouth ity of 11:23: daily. Medical Branch DOCOSAHEXAN Yes 1000mg Take 1,000 Univers OIC 6-07 mg by ity of ACID/EPA 11:23: mouth [place] (FISH OIL 09 daily. Medical ORAL) Branch BIOTIN ORAL Yes Take by Uni vers 6-07 mouth. ity of 11:23: Medical Branch FOLIC ACID Yes Take by Univ ers ORAL 6-07 mouth ity of 11:23: daily. Medical Branch MULTIVIT 2022-0 Yes Take by [facility] &[facility]ALS/F 6-07 mouth. ity of ERROUS FUM 11:23: (MULTI 09 Medical VITAMIN Branch ORAL) METHYLCELLU 0 Yes [facility] LOSE (FIBER 6-07 ity of THERAPY 11:23: [facility]) 09 Medical Branch DOCUSATE Yes Take by [facility] SODIUM 6-07 mouth. ity of (COLACE 11:23: [place] ORAL) 09 Medical Branch vitamin C Yes 1000mg Take 1,000 Univers with derrell 6-07 mg by ity of hips 11:23: mouth [place] (VITAMIN C) 09 daily. Medica l 1,000 mg Branch tablet cholecalcif Yes 1000U Take 1,000 Univers edmar, 6-07 Units by ity of vitamin D3, 11:23: mouth [place] (VITAMIN 09 daily. Medical D3) 1,000 Branch unit tablet CRANBERRY Yes Take by [facility] rs FRUIT 6-07 mouth ity of EXTRACT 11:23: daily. [place] (CRANBERRY 09 Medical ORAL) Branch CALCIUM Yes Take by Univers ORAL 6-07 mouth ity of 11:23: daily. [place] Medical Branch DOCOSAHEXAN Yes 1000mg Take 1,000 Univers OIC 6-07 mg by ity of ACID/EPA 11:23: mouth [place] (FISH OIL 09 daily. Medical ORAL) Branch BIOTIN ORAL Yes Take by Uni vers 6-07 mouth. ity of 11:23: [place] [address] Medical Branch FOLIC ACID Yes Take by Univ ers ORAL 6-07 mouth ity of 11:23: daily. [place] [address] Medical Branch MULTIVIT Yes Take by [facility] &MIN[facility]ALS/F 6-07 mouth. ity of ERROUS FUM 11:23: [place] ([facility] 09 Medical VITAMIN Branch ORAL) METHYLCELLU 0 Yes [facility] LOSE (FIBER 6-07 ity of THERAPY 11:23: [place] MIS) 09 Medical Branch DOCUSATE 0 Yes Take by [facility] SODIUM 6-07 mouth. ity [...] unit tablet CRANBERRY 2021-0 Yes Take by [facility] FRUIT 6-07 mouth ity of EXTRACT 11:23: daily. [place] (CRANBERRY Medical ORAL) Branch CALCIUM 0 Yes Take by Univers ORAL 6-07 mouth ity of 11:23: daily. [place] Medical Branch DOCOSAHEXAN Yes 1000mg Take 1,000 Univers OIC 6-07 mg by ity of ACID/EPA 11:23: mouth [place] (FISH OIL 09 daily. Medical ORAL) Branch BIOTIN ORAL Yes Take by Uni vers 6-07 mouth. ity of 11:23: Medical Branch FOLIC ACID Yes Take by Univ ers ORAL 6-07 mouth ity of 11:23: daily. [place] [facility] Branch MULTIVIT Yes Take by [facility] &MINERALS/F 6-07 mouth. ity of ERROUS FUM 11:23: [place] (MULTI 09 Medical VITAMIN Branch ORAL) METHYLCELLU 0 Yes [facility] LOSE (FIBER 6-07 ity of THERAPY 11:23: [place] MISC) 09 Medical Branch DOCUSATE Yes Take by [facility] SODIUM 6-07 mouth. ity of (COLACE 11:23: [place] ORAL) 09 Medical Branch vitamin C Yes 1000mg Take 1,000 Univers with derrell 6-07 mg by ity of hips 11:23: mouth [place] (VITAMIN C) 09 daily. Medica l 1,000 mg Branch tablet cholecalcif 2021-0 Yes 1000U Take 1,000 Univers edmar, 6-07 Units by ity of vitamin D3, 11:23: mouth [place] (VITAMIN 09 daily. Medical D3) 1,000 Branch unit tablet CRANBERRY 2021-0 Yes Take by [facility] FRUIT 6-07 mouth ity of EXTRACT 11:23: daily. [place] (CRANBERRY Medical ORAL) Branch CALCIUM 0 Yes Take by Univers ORAL 6-07 mouth ity of 11:23: daily. [place] [facility] Branch DOCOSAHEXAN 2022-0 Yes 1000mg Take [...] 6-07 mouth. ity of ERROUS FUM 11:23: [place] (MULTI 09 Medical VITAMIN Branch ORAL) METHYLCELLU Yes [facility] LOSE (FIBER 6-07 ity of THERAPY 11:23: [place] MISC) 09 Medical Branch DOCUSATE Yes Take by [facility] SODIUM 6-07 mouth. ity of (COLACE 11:23: [place] ORAL) 09 Medical Branch vitamin C Yes 1000mg Take 1,000 Univers with derrell 6-07 mg by ity of hips 11:23: mouth [place] (VITAMIN C) 09 daily. Medica l 1,000 mg Branch tablet cholecalcif Yes 1000U Take 1,000 Univers edmar, 6-07 Units by ity of vitamin D3, 11:23: mouth [place] (VITAMIN 09 daily. Medical D3) 1,000 Branch unit tablet CRANBERRY Yes Take by Unive rs FRUIT 6-07 mouth ity of EXTRACT 11:23: daily. [place] (CRANBERRY Medical ORAL) Branch CALCIUM Yes Take [...] ORAL 6-07 mouth ity of 11:23: daily. [place] Medical Branch MULTIVIT Yes Take by Univer s &MINERALS/F 6-07 mouth. ity of ERROUS FUM 11:23: [place] (MULTI 09 Medical VITAMIN Branch ORAL) METHYLCELLU Yes Univer s LOSE (FIBER 6-07 ity of THERAPY 11:23: [facility]) 09 Medical Branch DOCUSATE Yes Take by [...] CRANBERRY Yes Take by [facility] rs FRUIT 6-07 mouth ity of EXTRACT 11:23: daily. [place] (CRANBERRY Medical ORAL) Branch CALCIUM Yes Take by Univers ORAL 6-07 mouth ity of 11:23: daily. [place] [facility] Branch DOCOSAHEXAN Yes 1000mg Take 1,000 Univers OIC 6-07 mg by ity of ACID/EPA 11:23: mouth [place] (FISH OIL 09 daily. Medical ORAL) Branch BIOTIN ORAL Yes Take by Uni vers 6-07 mouth. ity of 11:23: [place] [facility] Branch FOLIC ACID Yes Take by Univ ers ORAL 6-07 mouth ity of 11:23: daily. [place] [facility] MULTIVIT Yes Take by [facility] &MINERALS/F 6-07 mouth. ity of ERROUS FUM 11:23: [place] (MULTI 09 Medical VITAMIN Branch ORAL) METHYLCELLU Yes Univer s LOSE (FIBER 6-07 ity of THERAPY 11:23: [facility]) 09 Medical Branch DOCUSATE Yes Take by [facility] SODIUM 6-07 mouth. ity [...] unit tablet CRANBERRY Yes Take by [facility] FRUIT 6-07 mouth ity of EXTRACT 11:23: daily. [place] (CRANBERRY Medical ORAL) Branch CALCIUM Yes Take by Univers ORAL 6-07 mouth ity of 11:23: daily. [place] [facility] Branch DOCOSAHEXAN Yes 1000mg Take 1,000 Univers OIC 6-07 mg by ity of ACID/EPA 11:23: mouth [place] (FISH OIL 09 daily. Medical ORAL) Branch BIOTIN ORAL Yes Take by Uni vers 6-07 mouth. ity of 11:23: Medical Branch FOLIC ACID Yes Take by Univ ers ORAL 6-07 mouth ity of 11:23: daily. [place] [facility] MULTIVIT Yes Take by [facility] [facility] &MINERALS/F 6-07 mouth. ity of ERROUS FUM 11:23: [place] (MULTI 09 Medical VITAMIN Branch ORAL) METHYLCELLU Yes Univer s LOSE (FIBER 6-07 ity of THERAPY 11:23: [place] MISC) 09 Medical Branch DOCUSATE Yes Take by [facility] s SODIUM 6-07 mouth. ity of (COLACE 11:23: [place] ORAL) 09 Medical Branch vitamin C Yes 1000mg Take 1,000 [facility] with derrell 6-07 mg by ity of hips 11:23: mouth [place] (VITAMIN C) 09 daily. Medica l 1,000 mg Branch tablet cholecalcif Yes 1000U Take 1,000 [facility] edmar, 6-07 Units by ity of vitamin D3, 11:23: mouth [place] (VITAMIN 09 daily. Medical D3) 1,000 Branch unit tablet CRANBERRY Yes Take by [facility] rs FRUIT 6-07 mouth ity of EXTRACT 11:23: daily. [place] (CRANBERRY Medical ORAL) Branch CALCIUM Yes Take by [facility] ORAL 6-07 mouth ity of 11:23: daily. [place] [facility] DOCOSAHEXAN Yes 1000mg Take 1,000 [facility] OIC 6-07 mg by ity of ACID/EPA 11:23: mouth [place] (FISH OIL 09 daily. Medical ORAL) Branch BIOTIN ORAL Yes Take by Uni vers 6-07 mouth. ity of 11:23: Medical Branch FOLIC ACID Yes Take by Univ ers ORAL 6-07 mouth ity of 11:23: daily. [place] [facility] MULTIVIT Yes Take by [facility] s &MINERALS/F 6-07 mouth. ity of ERROUS FUM 11:23: [place] (MULTI 09 Medical VITAMIN Branch ORAL) METHYLCELLU Yes Univer s LOSE (FIBER 6-07 ity of THERAPY 11:23: [facility]) 09 Medical Branch DOCUSATE Yes Take by Univer s SODIUM 6-07 mouth. ity of (COLACE 11:23: [place] ORAL) 09 Medical Branch vitamin C Yes 1000mg Take 1,000 [facility] with derrell 6-07 mg by ity of hips 11:23: mouth [place] (VITAMIN C) 09 daily. Medica l 1,000 mg Branch tablet cholecalcif Yes 1000U Take 1,000 [facility] edmar, 6-07 Units by ity of vitamin D3, 11:23: mouth [place] (VITAMIN 09 daily. Medical D3) 1,000 Branch unit tablet CRANBERRY Yes Take by [facility]ive rs FRUIT 6-07 mouth ity of EXTRACT 11:23: daily. [place] (CRANBERRY Medical ORAL) Branch CALCIUM Yes Take by [facility] ORAL 6-07 mouth ity of 11:23: daily. [place] [facility] Branch DOCOSAHEXAN Yes 1000mg Take 1,000 [facility] OIC 6-07 mg by ity of ACID/EPA 11:23: mouth [place] (FISH OIL 09 daily. Medical ORAL) Branch BIOTIN ORAL Yes Take by [facility] vers 6-07 mouth. ity of 11:23: Medical Branch FOLIC ACID Yes Take by Univ ers ORAL 6-07 mouth ity of 11:23: daily. [place] [facility] MULTIVIT Yes Take by [facility] s &MINERALS/F 6-07 mouth. ity of ERROUS FUM 11:23: [place] (MULTI 09 Medical VITAMIN Branch ORAL) METHYLCELLU 0 Yes Univer s LOSE (FIBER 6-07 ity of THERAPY 11:23: [place] MISC) 09 Medical Branch DOCUSATE Yes Take by [facility] s SODIUM 6-07 mouth. ity of [...] CRANBERRY Yes Take by [facility] rs FRUIT 6-07 mouth ity of EXTRACT 11:23: daily. [place] (CRANBERRY Medical ORAL) Branch CALCIUM Yes Take by [facility] ORAL 6-07 mouth ity of 11:23: daily. [place] [facility] Branch DOCOSAHEXAN Yes 1000mg Take 1,000 [facility] OIC 6-07 mg by ity of ACID/EPA 11:23: mouth [place] (FISH OIL 09 daily. Medical ORAL) Branch BIOTIN ORAL Yes Take by Uni vers 6-07 mouth. ity of 11:23: [place] [address] Medical Branch FOLIC ACID Yes Take by [facility] ers ORAL 6-07 mouth ity of 11:23: daily. [place] [address] Medical Branch MULTIVIT Yes Take by [facility] &MINERALS/F 6-07 mouth. ity of ERROUS FUM 11:23: [place] (MULTI 09 Medical VITAMIN Branch ORAL) METHYLCELLU Yes [facility] s LOSE (FIBER 6-07 ity of THERAPY 11:23: [place] MIS) 09 Medical Branch DOCUSATE Yes Take by [facility] s SODIUM 6-07 mouth. ity of [...] unit tablet CRANBERRY Yes Take [facility] FRUIT 6-07 mouth ity of EXTRACT 11:23: daily. [place] (CRANBERRY Medical ORAL) Branch CALCIUM Yes Take by [facility] ORAL 6-07 mouth ity of 11:23: daily. [place] [facility] Branch DOCOSAHEXAN Yes 1000mg Take 1,000 [facility] OIC 6-07 mg by ity of ACID/EPA 11:23: mouth [place] (FISH OIL 09 daily. Medical ORAL) Branch BIOTIN ORAL Yes Take by Uni vers 6-07 mouth. ity of 11:23: [place] [facility] Branch FOLIC ACID Yes Take by Univ ers ORAL 6-07 mouth ity of 11:23: daily. [place] [facility] MULTIVIT Yes Take by [facility] s &MINERALS/F 6-07 mouth. ity of ERROUS FUM 11:23: [place] (MULTI 09 Medical VITAMIN Branch ORAL) METHYLCELLU Yes [facility] s LOSE (FIBER 6-07 ity of THERAPY 11:23: [place] MISC) Medical Branch DOCUSATE Yes Take by [facility] SODIUM 6-07 mouth. ity of (COLACE 11:23: [place] ORAL) 09 Medical Branch vitamin C Yes 1000mg Take 1,000 [facility] with derrell 6-07 mg by ity of hips 11:23: mouth [place] (VITAMIN C) 09 daily. Medica l 1,000 mg Branch tablet cholecalcif Yes 1000U Take 1,000 [facility] edmar, 6-07 Units by ity of vitamin D3, 11:23: mouth [place] (VITAMIN 09 daily. Medical D3) 1,000 Branch unit tablet CRANBERRY Yes Take [facility] 6-07 mouth ity of EXTRACT 11:23: daily. [place] (CRANBERRY Medical ORAL) Branch CALCIUM Yes Take by [facility] ORAL 6-07 mouth ity of 11:23: daily. [place] [facility] Branch DOCOSAHEXAN Yes 1000mg Take 1,000 [facility] OIC 6-07 mg by ity of ACID/EPA 11:23: mouth [place] (FISH OIL 09 daily. Medical ORAL) Branch BIOTIN ORAL Yes Take by Uni vers 6-07 mouth. ity of 11:23: [place] [address] Medical Branch FOLIC ACID Yes Take by [facility] ers ORAL 6-07 mouth ity of 11:23: daily. [place] [address] Medical Branch MULTIVIT Yes Take by Univer s &MINERALS/F 6-07 mouth. ity of ERROUS FUM 11:23: [place] ([place] [address] Medical VITAMIN Branch ORAL) METHYLCELLU Yes Univer s LOSE (FIBER 6-07 ity of THERAPY 11:23: [facility]) 09 Medical Branch DOCUSATE Yes Take by Univer s SODIUM 6-07 mouth. ity of (COLACE 11:23: [place] ORAL) 09 Medical Branch vitamin C Yes 1000mg Take 1,000 [facility] with derrell 6-07 mg by ity of hips 11:23: mouth [place] (VITAMIN C) 09 daily. Medica l 1,000 mg Branch tablet cholecalcif Yes 1000U Take 1,000 [facility] edmar, 6-07 Units by ity of vitamin D3, 11:23: mouth [place] (VITAMIN 09 daily. Medical D3) 1,000 Branch unit tablet CRANBERRY Yes Take by [facility] rs FRUIT 6-07 mouth ity of EXTRACT 11:23: daily. [place] (CRANBERRY 09 Medical ORAL) Branch CALCIUM Yes Take by [facility] ORAL 6-07 mouth ity of 11:23: daily. [place] [address] Medical Branch DOCOSAHEXAN Yes 1000mg Take 1,000 [facility] OIC 6-07 mg by ity of ACID/EPA 11:23: mouth [place] (FISH OIL 09 daily. Medical ORAL) Branch BIOTIN ORAL Yes Take by Uni vers 6-07 mouth. ity of 11:23: [place] [address] Medical Branch FOLIC ACID Yes Take by [facility] ers ORAL 6-07 mouth ity of 11:23: daily. [place] [address] Medical Branch MULTIVIT Yes Take by [facility] &MINERALS/F 6-07 mouth. ity of ERROUS FUM 11:23: [place] ([place] [address] Medical VITAMIN Branch ORAL) METHYLCELLU Yes Univer s LOSE (FIBER 6-07 ity of THERAPY 11:23: [facility]) 09 Medical Branch DOCUSATE Yes Take by [facility] s SODIUM 6-07 mouth. ity of [...] unit tablet CRANBERRY Yes Take [facility] FR[facility] 6-07 mouth ity of EXTRACT 11:23: daily. [place] (CRANBERRY Medical ORAL) Branch CALCIUM Yes Take by [facility] ORAL 6-07 mouth ity of 11:23: daily. [place] [facility] Branch DOCOSAHEXAN Yes 1000mg Take 1,000 [facility] OIC 6-07 mg by ity of ACID/EPA 11:23: mouth [place] (FISH OIL 09 daily. Medical ORAL) Branch BIOTIN ORAL Yes Take by Uni vers 6-07 mouth. ity of 11:23: Medical Branch FOLIC ACID Yes Take by Univ ers ORAL 6-07 mouth ity of 11:23: daily. [place] [facility] Branch MULTIVIT Yes Take by Univer s &MINERALS/F 6-07 mouth. ity of ERROUS FUM 11:23: [place] (MULTI 09 Medical VITAMIN Branch ORAL) METHYLCELLU Yes Univer s LOSE (FIBER 6-07 ity of THERAPY 11:23: [place] MISC) 09 Medical Branch DOCUSATE Yes Take [...] by ity of vitamin D3, 11:23: mouth [place] (VITAMIN 09 daily. Medical D3) 1,000 Branch unit tablet CRANBERRY Yes Take [facility] FR[facility] 6-07 mouth ity of EXTRACT 11:23: daily. [place] (CRANBERRY 09 Medical ORAL) Branch CALCIUM Yes Take by [facility] ORAL 6-07 mouth ity of 11:23: daily. [place] [facility] Branch DOCOSAHEXAN Yes 1000mg Take 1,000 [facility] OIC 6-07 mg by ity of ACID/EPA 11:23: mouth [place] (FISH OIL 09 daily. Medical ORAL) Branch BIOTIN ORAL Yes Take by Uni vers 6-07 mouth. ity of 11:23: Medical Branch FOLIC ACID Yes Take by Univ ers ORAL 6-07 mouth ity of 11:23: daily. [place] [facility] Branch MULTIVIT Yes Take by Univer s &MINERALS/F 6-07 mouth. ity of ERROUS FUM 11:23: [place] (MULTI 09 Medical VITAMIN Branch ORAL) METHYLCELLU Yes [facility] LOSE (FIBER 6-07 ity of THERAPY 11:23: [place] MISC) Medical Branch DOCUSATE Yes Take by [facility] SODIUM 6-07 mouth. ity of (COLACE 11:23: [place] ORAL) 09 Medical Branch vitamin C Yes 1000mg Take 1,000 [facility] with derrell 6-07 mg by ity of hips 11:23: mouth [place] (VITAMIN C) 09 daily. Medica l 1,000 mg Branch tablet cholecalcif Yes 1000U Take 1,000 [facility] edmar, 6-07 Units by ity of vitamin D3, 11:23: mouth [place] (VITAMIN 09 daily. Medical D3) 1,000 Branch unit tablet CRANBERRY Yes Take by [facility] FRUIT 6-07 mouth ity of EXTRACT 11:23: daily. [place] ([place] Medical ORAL) Branch CALCIUM Yes Take by [facility] ORAL 6-07 mouth ity of 11:23: daily. [place] [facility] Branch DOCOSAHEXAN Yes 1000mg Take 1,000 [facility] OIC 6-07 mg by ity of ACID/EPA 11:23: mouth [place] (FISH OIL 09 daily. Medical ORAL) Branch BIOTIN ORAL Yes Take by Uni vers 6-07 mouth. ity of 11:23: Medical Branch FOLIC ACID Yes Take by Univ ers ORAL 6-07 mouth ity of 11:23: daily. [place] [facility] MULTIVIT Yes Take by [facility] &MINERALS/F 6-07 mouth. ity of ERROUS FUM 11:23: [place] (MULTI 09 Medical VITAMIN Branch ORAL) METHYLCELLU Yes [facility] LOSE (FIBER 6-07 ity of THERAPY 11:23: [facility]) Medical Branch DOCUSATE Yes Take by [facility] SODIUM 6-07 mouth. ity of (COLACE 11:23: [place] ORAL) 09 Medical Branch vitamin C Yes 1000mg Take 1,000 [facility] with derrell 6-07 mg by ity of hips 11:23: mouth [place] (VITAMIN C) 09 daily. Medica l 1,000 mg Branch tablet cholecalcif Yes 1000U Take 1,000 [facility] edmar, 6-07 Units by ity of vitamin D3, 11:23: mouth [place] (VITAMIN 09 daily. Medical D3) 1,000 Branch unit tablet CRANBERRY Yes Take by [facility] rs FRUIT 6-07 mouth ity of EXTRACT 11:23: daily. [place] (CRANBERRY 09 Medical ORAL) Branch CALCIUM Yes Take by [facility] ORAL 6-07 mouth ity of 11:23: daily. [place] [address] Medical Branch DOCOSAHEXAN Yes 1000mg Take 1,000 [facility] OIC 6-07 mg by ity of ACID/EPA 11:23: mouth [place] (FISH OIL 09 daily. Medical ORAL) Branch BIOTIN ORAL Yes Take by Uni vers 6-07 mouth. ity of 11:23: [place] [address] Medical Branch FOLIC ACID Yes Take by Univ ers ORAL 6-07 mouth ity of 11:23: daily. [place] [address] Medical Branch MULTIVIT Yes Take by [facility] &MINERALS/F 6-07 mouth. ity of ERROUS FUM 11:23: [place] (MULTI 09 Medical VITAMIN Branch ORAL) METHYLCELLU 0 Yes Univer s LOSE (FIBER 6-07 ity of THERAPY 11:23: [facility]) Medical Branch DOCUSATE Yes Take by [facility] SODIUM 6-07 mouth. ity [...] 6-07 mouth ity of EXTRACT 11:23: daily. [place] ([place] Medical ORAL) Branch CALCIUM Yes Take by [facility] ORAL 6-07 mouth ity of 11:23: daily. [place] [facility] Branch DOCOSAHEXAN Yes 1000mg Take 1,000 [facility] OIC 6-07 mg by ity of ACID/EPA 11:23: mouth [place] (FISH OIL 09 daily. Medical ORAL) Branch BIOTIN ORAL Yes Take by Uni vers 6-07 mouth. ity of 11:23: Medical Branch FOLIC ACID Yes Take by Univ ers ORAL 6-07 mouth ity of 11:23: daily. [place] [facility] Branch MULTIVIT Yes Take by Univer s &MINERALS/F 6-07 mouth. ity of ERROUS FUM 11:23: [place] (MULTI 09 Medical VITAMIN Branch ORAL) METHYLCELLU Yes Univer s LOSE (FIBER 6-07 ity of THERAPY 11:23: [place] MISC) 09 Medical Branch DOCUSATE Yes Take [...] 6-07 mouth ity of EXTRACT 11:23: daily. [place] (CRAN[place]Y Medical ORAL) Branch CALCIUM Yes Take by [facility] ORAL 6-07 mouth ity of 11:23: daily. [place] [facility] Branch DOCOSAHEXAN Yes 1000mg Take 1,000 [facility] OIC 6-07 mg by ity of ACID/EPA 11:23: mouth [place] (FISH OIL 09 daily. Medical ORAL) Branch BIOTIN ORAL Yes Take by Uni vers 6-07 mouth. ity of 11:23: Medical Branch FOLIC ACID Yes Take by Univ ers ORAL 6-07 mouth ity of 11:23: daily. [place] [facility] Branch MULTIVIT Yes Take by Univer s &MINERALS/F 6-07 mouth. ity of ERROUS FUM 11:23: [place] (MULTI 09 Medical VITAMIN Branch ORAL) METHYLCELLU Yes Univer s LOSE (FIBER 6-07 ity of THERAPY 11:23: [place] MISC) 09 Medical Branch DOCUSATE Yes Take by Univer s SODIUM 6-07 mouth. ity of (COLACE 11:23: [place] ORAL) 09 Medical Branch vitamin C Yes 1000mg Take 1,000 [facility] with derrell 6-07 mg by ity of hips 11:23: mouth [place] (VITAMIN C) 09 daily. Medica l 1,000 mg Branch tablet cholecalcif Yes 1000U Take 1,000 [facility] edmar, 6-07 Units by ity of vitamin D3, 11:23: mouth [place] (VITAMIN 09 daily. Medical D3) 1,000 Branch unit tablet CRANBERRY Yes Take by Unive rs FRUIT 6-07 mouth ity of EXTRACT 11:23: daily. [place] ([place] Medical ORAL) Branch CALCIUM Yes Take by [facility] ORAL 6-07 mouth ity of 11:23: daily. [place] [facility] Branch DOCOSAHEXAN Yes 1000mg Take 1,000 [facility] OIC 6-07 mg by ity of ACID/EPA 11:23: mouth [place] (FISH OIL 09 daily. Medical ORAL) Branch BIOTIN ORAL Yes Take by Uni vers 6-07 mouth. ity of 11:23: Medical Branch FOLIC ACID Yes Take by Univ ers ORAL 6-07 mouth ity of 11:23: daily. [place] [facility] Branch MULTIVIT Yes Take by Univer s &MINERALS/F 6-07 mouth. ity of ERROUS FUM 11:23: [place] (MULTI 09 Medical VITAMIN Branch ORAL) METHYLCELLU 0 Yes Univer s LOSE (FIBER 6-07 ity of THERAPY 11:23: [facility]) 09 Medical Branch DOCUSATE Yes Take by [...] unit tablet CRANBERRY Yes [facility] 6-07 mouth ity of EXTRACT 11:23: daily. [place] (CRAN[place]ERRY 09 Medical ORAL) Branch CALCIUM Yes Take by [facility] ORAL 6-07 mouth ity of 11:23: daily. [place] [facility] Branch DOCOSAHEXAN Yes 1000mg Take 1,000 [facility] OIC 6-07 mg by ity of ACID/EPA 11:23: mouth [place] (FISH OIL 09 daily. Medical ORAL) Branch BIOTIN ORAL Yes Take by Uni vers 6-07 mouth. ity of 11:23: [place] [address] Medical Branch FOLIC ACID Yes Take by Univ ers ORAL 6-07 mouth ity of 11:23: daily. [place] [address] Medical Branch MULTIVIT Yes Take by [facility] &MINERALS/F 6-07 mouth. ity of ERROUS FUM 11:23: [place] (MULTI 09 Medical VITAMIN Branch ORAL) METHYLCELLU 0 Yes Univer s LOSE (FIBER 6-07 ity of THERAPY 11:23: [facility]) 09 Medical Branch DOCUSATE 0 Yes Take by Univer s SODIUM 6-07 mouth. ity of (COLACE 11:23: [place] ORAL) 09 Medical Branch vitamin C Yes 1000mg Take 1,000 [facility] with derrell 6-07 mg by ity of hips 11:23: mouth [place] (VITAMIN C) 09 daily. Medica l 1,000 mg Branch tablet cholecalcif 0 Yes 1000U Take 1,000 [facility] edmar, 6-07 Units by ity of vitamin D3, 11:23: mouth [place] (VITAMIN 09 daily. Medical D3) 1,000 Branch unit tablet CRANBERRY Yes Take [facility] 6-07 mouth ity of EXTRACT 11:23: daily. [place] ([place] Medical ORAL) Branch CALCIUM Yes Take by [facility] ORAL 6-07 mouth ity of 11:23: daily. [place] [facility] Branch DOCOSAHEXAN Yes 1000mg Take 1,000 [facility] OIC 6-07 mg by ity of ACID/EPA 11:23: mouth [place] (FISH OIL 09 daily. Medical ORAL) Branch BIOTIN ORAL Yes Take by Un [facility] 6-07 mouth. ity of 11:23: Medical Branch FOLIC ACID Yes Take by Univ ers ORAL 6-07 mouth ity of 11:23: daily. [place] [facility] Branch MULTIVIT Yes Take by [facility] s &MINERALS/F 6-07 mouth. ity of ERROUS FUM 11:23: [place] (MULTI 09 Medical VITAMIN Branch ORAL) METHYLCELLU Yes [facility] LOSE (FIBER 6-07 ity of THERAPY 11:23: [place] MISC) 09 Medical Branch DOCUSATE Yes Take by [facility] SODIUM 6-07 mouth. ity of (COLACE 11:23: [place] ORAL) 09 Medical Branch vitamin C Yes 1000mg Take 1,000 [facility] with derrell 6-07 mg by ity of hips 11:23: mouth [place] (VITAMIN C) 09 daily. Medica l 1,000 mg Branch tablet cholecalcif Yes 1000U Take 1,000 [facility] edmar, 6-07 Units by ity of vitamin D3, 11:23: mouth [place] (VITAMIN 09 daily. Medical D3) 1,000 Branch unit tablet CRANBERRY Yes Take by [facility] rs FRUIT 6-07 mouth ity of EXTRACT 11:23: daily. [place] ([place] Medical ORAL) Branch CALCIUM Yes Take by Univers ORAL 6-07 mouth ity of 11:23: daily. [place] [facility] Branch DOCOSAHEXAN Yes 1000mg Take 1,000 [facility] OIC 6-07 mg by ity of ACID/EPA 11:23: mouth [place] (FISH OIL 09 daily. Medical ORAL) Branch BIOTIN ORAL Yes Take by Uni vers 6-07 mouth. ity of 11:23: Medical Branch FOLIC ACID Yes Take by Univ ers ORAL 6-07 mouth ity of 11:23: daily. [place] [facility] Branch MULTIVIT Yes Take by Univer s &MINERALS/F 6-07 mouth. ity of ERROUS FUM 11:23: [place] (MULTI 09 Medical VITAMIN Branch ORAL) METHYLCELLU 0 Yes Univer s LOSE (FIBER 6-07 ity of THERAPY 11:23: [facility]) 09 Medical Branch DOCUSATE Yes Take by Univer s SODIUM 6-07 mouth. ity of (COLACE 11:23: [place] ORAL) 09 Medical Branch vitamin C Yes 1000mg Take 1,000 [facility] with derrell 6-07 mg by ity of hips 11:23: mouth [place] (VITAMIN C) 09 daily. Medica l 1,000 mg Branch tablet cholecalcif Yes 1000U Take 1,000 [facility] edmar, 6-07 Units by ity of vitamin D3, 11:23: mouth [place] (VITAMIN 09 daily. Medical D3) 1,000 Branch unit tablet CRANBERRY Yes Take by Unive rs FRUIT 6-07 mouth ity of EXTRACT 11:23: daily. [place] (CRANBERRY 09 Medical ORAL) Branch CALCIUM Yes Take by Univers ORAL 6-07 mouth ity of 11:23: daily. [place] [facility] Branch DOCOSAHEXAN Yes 1000mg Take 1,000 [facility] OIC 6-07 mg by ity of ACID/EPA 11:23: mouth [place] (FISH OIL 09 daily. Medical ORAL) Branch BIOTIN ORAL Yes Take by Uni vers 6-07 mouth. ity of 11:23: [place] [facility] Branch FOLIC ACID 0 Yes Take by Univ ers ORAL 6-07 mouth ity of 11:23: daily. [place] [facility] Branch MULTIVIT 0 Yes Take by Univer s &MINERALS/F 6-07 mouth. ity of ERROUS FUM 11:23: [place] (MULTI 09 Medical VITAMIN Branch ORAL) METHYLCELLU 2021-0 Yes Univer s LOSE (FIBER 6-07 ity of THERAPY 11:23: [facility]) 09 Medical Branch DOCUSATE Yes Take by [facility] SODIUM 6-07 mouth. ity of (COLACE 11:23: [place] ORAL) 09 Medical Branch vitamin C Yes 1000mg Take 1,000 [facility] with derrell 6-07 mg by ity of hips 11:23: mouth [place] (VITAMIN C) 09 daily. Medica l 1,000 mg Branch tablet cholecalcif Yes 1000U Take 1,000 [facility] edmar, 6-07 Units by ity of vitamin D3, 11:23: mouth [place] (VITAMIN 09 daily. Medical D3) 1,000 Branch unit tablet CRANBERRY Yes Take by [facility] rs FRUIT 6-07 mouth ity of EXTRACT 11:23: daily. [place] (CRANBERRY 09 Medical ORAL) Branch CALCIUM Yes Take by Univers ORAL 6-07 mouth ity of 11:23: daily. [place] [facility] Branch DOCOSAHEXAN Yes 1000mg Take 1,000 [facility] OIC 6-07 mg by ity of ACID/EPA 11:23: mouth [place] (FISH OIL 09 daily. Medical ORAL) Branch BIOTIN ORAL Yes Take by Uni vers 6-07 mouth. ity of 11:23: [place] [address] Medical Branch FOLIC ACID Yes Take by Univ ers ORAL 6-07 mouth ity of 11:23: daily. [place] [address] Medical Branch MULTIVIT Yes Take by [facility] &MINERALS/F 6-07 mouth. ity of ERROUS FUM 11:23: [place] (MULTI 09 Medical VITAMIN Branch ORAL) METHYLCELLU Yes [facility] LOSE (FIBER 6-07 ity of THERAPY 11:23: [facility]) 09 Medical Branch DOCUSATE Yes Take by [facility] SODIUM 6-07 mouth. ity of (COLACE 11:23: [place] ORAL) 09 Medical Branch vitamin C Yes 1000mg Take 1,000 [facility] with derrell 6-07 mg by ity of hips 11:23: mouth [place] (VITAMIN C) 09 daily. Medica l 1,000 mg Branch tablet cholecalcif 0 Yes 1000U Take 1,000 [facility] edmar, 6-07 Units by ity of vitamin D3, 11:23: mouth [place] (VITAMIN 09 daily. Medical D3) 1,000 Branch unit tablet CRANBERRY Yes Take by Unive rs FRUIT 6-07 mouth ity of EXTRACT 11:23: daily. [place] ([place] Medical ORAL) Branch CALCIUM Yes Take by [facility] ORAL 6-07 mouth ity of 11:23: daily. [place] [facility] Branch DOCOSAHEXAN Yes 1000mg Take 1,000 [facility] OIC 6-07 mg by ity of ACID/EPA 11:23: mouth [place] (FISH OIL 09 daily. Medical ORAL) Branch BIOTIN ORAL Yes Take by Uni vers 6-07 mouth. ity of 11:23: [place] [facility] Branch FOLIC ACID Yes Take by Univ ers ORAL 6-07 mouth ity of 11:23: daily. [place] [facility] Branch MULTIVIT Yes Take by Univer s &MINERALS/F 6-07 mouth. ity of ERROUS FUM 11:23: [place] (MULTI Medical VITAMIN Branch ORAL) METHYLCELLU Yes Univer s LOSE (FIBER 6-07 ity of THERAPY 11:23: [place] MISC) Medical Branch DOCUSATE Yes Take by Univer s SODIUM 6-07 mouth. ity of (COLACE 11:23: [place] ORAL) Medical Branch vitamin C Yes 1000mg Take 1,000 [facility] with derrell 6-07 mg by ity of hips 11:23: mouth [place] (VITAMIN C) 09 daily. Medica l 1,000 mg Branch tablet cholecalcif Yes 1000U Take 1,000 [facility] edmar, 6-07 Units by ity of vitamin D3, 11:23: mouth [place] (VITAMIN 09 daily. Medical D3) 1,000 Branch unit tablet CRANBERRY Yes Take by Unive rs FRUIT 6-07 mouth ity of EXTRACT 11:23: daily. [place] ([place] Medical ORAL) Branch CALCIUM Yes Take by [facility] ORAL 6-07 mouth ity of 11:23: daily. [place] [facility] Branch DOCOSAHEXAN Yes 1000mg Take 1,000 [facility] OIC 6-07 mg by ity of ACID/EPA 11:23: mouth [place] (FISH OIL 09 daily. Medical ORAL) Branch BIOTIN ORAL Yes Take by Uni vers 6-07 mouth. ity of 11:23: [place] [address] Medical Branch FOLIC ACID Yes Take by Univ ers ORAL 6-07 mouth ity of 11:23: daily. [place] [address] Medical Branch MULTIVIT Yes Take by Univer s &MINERALS/F 6-07 mouth. ity of ERROUS FUM 11:23: [place] (MULTI 09 Medical VITAMIN Branch ORAL) METHYLCELLU Yes Univer s LOSE (FIBER 6-07 ity of THERAPY 11:23: [facility]) 09 Medical Branch DOCUSATE Yes Take by [facility] SODIUM 6-07 mouth. ity of (COLACE 11:23: [place] ORAL) 09 Medical Branch vitamin C Yes 1000mg Take 1,000 [facility] with derrell 6-07 mg by ity of hips 11:23: mouth [place] (VITAMIN C) 09 daily. Medica l 1,000 mg Branch tablet cholecalcif Yes 1000U Take 1,000 [facility] edmar, 6-07 Units by ity of vitamin D3, 11:23: mouth [place] (VITAMIN 09 daily. Medical D3) 1,000 Branch unit tablet CRANBERRY Yes Take by [facility] rs FRUIT 6-07 mouth ity of EXTRACT 11:23: daily. [place] ([place] Medical ORAL) Branch CALCIUM Yes Take by Univers ORAL 6-07 mouth ity of 11:23: daily. [place] [address] Medical Branch DOCOSAHEXAN Yes 1000mg Take 1,000 [facility] OIC 6-07 mg by ity of ACID/EPA 11:23: mouth [place] (FISH OIL 09 daily. Medical ORAL) Branch BIOTIN ORAL Yes Take by Uni vers 6-07 mouth. ity of 11:23: [place] [address] Medical Branch FOLIC ACID Yes Take by Univ ers ORAL 6-07 mouth ity of 11:23: daily. [place] [address] Medical Branch MULTIVIT Yes Take by Univer s &MINERALS/F 6-07 mouth. ity of ERROUS FUM 11:23: [place] (MULTI 09 Medical VITAMIN Branch ORAL) METHYLCELLU Yes Univer s LOSE (FIBER 6-07 ity of THERAPY 11:23: [facility]) 09 Medical Branch DOCUSATE Yes Take by [facility] s SODIUM 6-07 mouth. ity of [...] unit tablet CRANBERRY [facility] mouth ity of EXTRACT 11:23: daily. [place] (CRANBERRY Medical ORAL) Branch CALCIUM Yes Take by [facility] ORAL 6-07 mouth ity of 11:23: daily. [place] [facility] DOCOSAHEXAN Yes 1000mg Take 1,000 [facility] OIC 6-07 mg by ity of ACID/EPA 11:23: mouth [place] (FISH OIL 09 daily. Medical ORAL) Branch BIOTIN ORAL Yes Take by [facility] vers 6-07 mouth. ity of 11:23: [place] [facility] FOLIC ACID Yes Take by [facility] ers ORAL 6-07 mouth ity of 11:23: daily. [place] [facility] MULTIVIT Yes [facility] &[facility]/F 6-07 mouth. ity of ERROUS FUM 11:23: [place] (MULTI 09 Medical VITAMIN Branch ORAL) METHYLCELLU Yes Univer s LOSE (FIBER 6-07 ity of THERAPY 11:23: [place] MIS) Medical Branch DOCUSATE Yes [facility] SODIUM 6-07 mouth. ity of (COLACE 11:23: [place] ORAL) 09 Medical Branch vitamin C Yes 1000mg Take 1,000 [facility] with derrell 6-07 mg by ity of hips 11:23: mouth [place] (VITAMIN C) 09 daily. Medica l 1,000 mg Branch tablet cholecalcif Yes 1000U Take 1,000 [facility] edmar, 6-07 Units by ity of vitamin D3, 11:23: mouth [place] (VITAMIN 09 daily. Medical D3) 1,000 Branch unit tablet CRANBERRY Yes [facility] FRUIT 6-07 mouth ity of EXTRACT 11:23: daily. [place] (CRANBERRY 09 Medical ORAL) Branch CALCIUM Yes Take by [facility] ORAL 6-07 mouth ity of 11:23: daily. [place] [facility] DOCOSAHEXAN Yes 1000mg Take 1,000 [facility] OIC 6-07 mg by ity of ACID/EPA 11:23: mouth [place] (FISH OIL 09 daily. Medical ORAL) Branch BIOTIN ORAL Yes Take by [facility] vers 6-07 mouth. ity of 11:23: [place] [facility] FOLIC ACID Yes Take by [facility] ers ORAL 6-07 mouth ity of 11:23: daily. [place] [facility] MULTIVIT Yes Take by [facility]iver s &MINERALS/F 6-07 mouth. ity of ERROUS FUM 11:23: [place] (MULTI 09 Medical VITAMIN Branch ORAL) METHYLCELLU Yes Univer s LOSE (FIBER 6-07 ity of THERAPY 11:23: [place] MISC) Medical Branch DOCUSATE Yes Take by [facility] s SODIUM 6-07 mouth. ity of (COLACE 11:23: [place] ORAL) Medical Branch vitamin C Yes 1000mg Take 1,000 [facility] with derrell 6-07 mg by ity of hips 11:23: mouth [place] (VITAMIN C) 09 daily. Medica l 1,000 mg Branch tablet cholecalcif Yes 1000U Take 1,000 [facility] edmar, 6-07 Units by ity of vitamin D3, 11:23: mouth [place] (VITAMIN 09 daily. Medical D3) 1,000 Branch unit tablet CRANBERRY Yes [facility] FR[facility]-07 mouth ity of EXTRACT 11:23: daily. [place] (CRANBERRY 09 Medical ORAL) Branch CALCIUM Yes Take by [facility] ORAL 6-07 mouth ity of 11:23: daily. [place] [facility] DOCOSAHEXAN Yes 1000mg Take 1,000 [facility] OIC 6-07 mg by ity of ACID/EPA 11:23: mouth [place] (FISH OIL 09 daily. Medical ORAL) Branch BIOTIN ORAL Yes Take by [facility] vers 6-07 mouth. ity of 11:23: [place] [facility] FOLIC ACID Yes Take by Univ ers ORAL 6-07 mouth ity of 11:23: daily. [place] 09 Medical Branch MULTIVIT Yes [facility] &[facility]/F 6-07 mouth. ity of ERROUS FUM 11:23: [place] (MULTI 09 Medical VITAMIN Branch ORAL) METHYLCELLU 0 Yes [facility] LOSE (FIBER 6-07 ity of THERAPY 11:23: [facility]) 09 Medical Branch DOCUSATE Yes Take by [facility] SODIUM 6-07 mouth. ity of (COLACE 11:23: [place] ORAL) 09 Medical Branch vitamin C Yes 1000mg Take 1,000 [facility] with derrell 6-07 mg by ity of hips 11:23: mouth [place] (VITAMIN C) 09 daily. Medica l 1,000 mg Branch tablet cholecalcif Yes 1000U Take 1,000 [facility] edmar, 6-07 Units by ity of vitamin D3, 11:23: mouth [place] (VITAMIN 09 daily. Medical D3) 1,000 Branch unit tablet CRANBERRY Yes Take by [facility] rs FRUIT 6-07 mouth ity of EXTRACT 11:23: daily. [place] (CRANBERRY 09 Medical ORAL) Branch CALCIUM Yes Take by [facility] ORAL 6-07 mouth ity of 11:23: daily. [place] [address] Medical Branch DOCOSAHEXAN Yes 1000mg Take 1,000 [facility] OIC 6-07 mg by ity of ACID/EPA 11:23: mouth [place] (FISH OIL 09 daily. Medical ORAL) Branch BIOTIN ORAL Yes Take by [facility] vers 6-07 mouth. ity of 11:23: [place] [address] Medical Branch FOLIC ACID Yes Take by [facility] ers ORAL 6- mouth ity of 11:58: daily. [place] [address] Medical Branch MULTIVIT Yes Take by [facility] &MINERALS/F 6-01 mouth. ity of ERROUS FUM 11:58: [place] (MULTI 16 Medical VITAMIN Branch ORAL) METHYLCELLU 0 Yes Univer s LOSE (FIBER 6-01 ity of THERAPY 11:58: [place] [facility]) Medical Branch DOCUSATE 0 Yes Take by [facility] SODIUM 6-01 mouth. ity of (COLACE 11:58: [place] ORAL) 16 Medical Branch vitamin C Yes 1000mg Take 1,000 [facility] with derrell 6-01 mg by ity of hips 11:58: mouth [place] (VITAMIN C) 16 daily. Medica l 1,000 mg Branch tablet cholecalcif Yes 1000U Take 1,000 [facility] edmar, 6- Units by ity of vitamin D3, 11:58: mouth [place] (VITAMIN 16 daily. Medical D3) 1,000 Branch unit tablet CRANBERRY Yes Take by Unive rs FRUIT 6- mouth ity of EXTRACT 11:58: daily. [place] (CRANBERRY 16 Medical ORAL) [place] CALCIUM Yes Take by [facility] ORAL 6- mouth ity of 11:58: daily. [address] DOCOSAHEXAN Yes 1000mg Take 1,000 [facility] OIC 6- mg by ity of ACID/EPA 11:58: mouth [place] (FISH OIL 16 daily. Medical ORAL) [place] BIOTIN ORAL Yes Take by Uni vers 6- mouth. ity of 11:58: [address] metformin Yes [id number] 500mg Take 1 U nivers ER 500 mg 5-31 tablet by ity o f 24 hr 00:00: mouth [place] tablet 00 daily with Medical breakfast. Branch STOP REGULAR METFORMIN. metformin Yes [id number] 500mg Take 1 U nivers ER 500 mg 5-31 tablet by ity o f 24 hr 00:00: mouth [place] tablet 00 daily with Medical breakfast. Branch STOP REGULAR METFORMIN. metformin Yes [id number] 500mg Take 1 U nivers ER 500 mg 5-31 tablet by ity o f 24 hr 00:00: mouth [place] tablet 00 daily with Medical breakfast. Branch STOP REGULAR METFORMIN. metformin Yes [id number] 500mg Take 1 U nivers ER 500 mg 5-31 tablet by ity o f 24 hr 00:00: mouth [place] tablet 00 daily with Medical breakfast. Branch STOP REGULAR METFORMIN. metformin Yes [id number] 500mg Take 1 U nivers ER 500 mg 5-31 tablet by ity o f 24 hr 00:00: mouth [place] tablet 00 daily with Medical breakfast. Branch STOP REGULAR METFORMIN. metformin Yes [id number] 500mg Take 1 U nivers ER 500 mg 5-31 tablet by ity o f 24 hr 00:00: mouth [place] tablet 00 daily with Medical breakfast. Branch STOP REGULAR METFORMIN. metformin 2021-0 Yes [id number] 500mg Take 1 U nivers ER 500 mg 5-31 tablet by ity o f 24 hr 00:00: mouth [place] tablet 00 daily with Medical breakfast. Branch STOP REGULAR METFORMIN. metformin 2021-0 Yes [id number] 500mg Take 1 U nivers ER 500 mg 5-31 tablet by ity o f 24 hr 00:00: mouth [place] tablet 00 daily with Medical breakfast. Branch STOP REGULAR METFORMIN. metformin 2021-0 Yes [id number] 500mg Take 1 U nivers ER 500 mg 5-31 tablet by ity o f 24 hr 00:00: mouth [place] tablet 00 daily with Medical breakfast. Branch STOP REGULAR METFORMIN. metformin 2021-0 Yes [id number] 500mg Take 1 U nivers ER 500 mg 5-31 tablet by ity o f 24 hr 00:00: mouth [place] tablet 00 daily with Medical breakfast. Branch STOP REGULAR METFORMIN. metformin 2021-0 Yes [id number] 500mg Take 1 U nivers ER 500 mg 5-31 tablet by ity o f 24 hr 00:00: mouth [place] tablet 00 daily with Medical breakfast. Branch STOP REGULAR METFORMIN. metformin 2021-0 Yes [id number] 500mg Take 1 U nivers ER 500 mg 5-31 tablet by ity o f 24 hr 00:00: mouth [place] tablet 00 daily with Medical breakfast. Branch STOP REGULAR METFORMIN. metformin 2021-0 Yes [id number] 500mg Take 1 U nivers ER 500 mg 5-31 tablet by ity o f 24 hr 00:00: mouth [place] tablet 00 daily with Medical breakfast. Branch STOP REGULAR METFORMIN. metformin 2021-0 Yes [id number] 500mg Take 1 U nivers ER 500 mg 5-31 tablet by ity o f 24 hr 00:00: mouth [place] tablet 00 daily with Medical breakfast. Branch STOP REGULAR METFORMIN. metformin 2021-0 Yes [id number] 500mg Take 1 U nivers ER 500 mg 5-31 tablet by ity o f 24 hr 00:00: mouth [place] tablet 00 daily with Medical breakfast. Branch STOP REGULAR METFORMIN. metformin 2021-0 Yes [id number] 500mg Take 1 U nivers ER 500 mg 5-31 tablet by ity o f 24 hr 00:00: mouth [place] tablet 00 daily with Medical breakfast. Branch STOP REGULAR METFORMIN. metformin 2021-0 Yes [id number] 500mg Take 1 U nivers ER 500 mg 5-31 tablet by ity o f 24 hr 00:00: mouth [place] tablet 00 daily with Medical breakfast. Branch STOP REGULAR METFORMIN. metformin 2021-0 Yes [id number] 500mg Take 1 U nivers ER 500 mg 5-31 tablet by ity o f 24 hr 00:00: mouth [place] tablet 00 daily with Medical breakfast. Branch STOP REGULAR METFORMIN. metformin 2021-0 Yes [id number] 500mg Take 1 U nivers ER 500 mg 5-31 tablet by ity o f 24 hr 00:00: mouth [place] tablet 00 daily with Medical breakfast. Branch STOP REGULAR METFORMIN. metformin 2021-0 Yes [id number] 500mg Take 1 U nivers ER 500 mg 5-31 tablet by ity o f 24 hr 00:00: mouth [place] tablet 00 daily with Medical breakfast. Branch STOP REGULAR METFORMIN. metformin 2021-0 Yes [id number] 500mg Take 1 U nivers ER 500 mg 5-31 tablet by ity o f 24 hr 00:00: mouth [place] tablet 00 daily with Medical breakfast. Branch STOP REGULAR METFORMIN. metformin 2021-0 Yes [id number] 500mg Take 1 U nivers ER 500 mg 5-31 tablet by ity o f 24 hr 00:00: mouth [place] tablet 00 daily with Medical breakfast. Branch STOP REGULAR METFORMIN. metformin 2021-0 Yes [id number] 500mg Take 1 U nivers ER 500 mg 5-31 tablet by ity o f 24 hr 00:00: mouth [place] tablet 00 daily with Medical breakfast. Branch STOP REGULAR METFORMIN. metformin 2021-0 Yes [id number] 500mg Take 1 U nivers ER 500 mg 5-31 tablet by ity o f 24 hr 00:00: mouth [place] tablet 00 daily with Medical breakfast. Branch STOP REGULAR METFORMIN. metformin 2021-0 Yes [id number] 500mg Take 1 U nivers ER 500 mg 5-31 tablet by ity o f 24 hr 00:00: mouth [place] tablet 00 daily with Medical breakfast. Branch STOP REGULAR METFORMIN. metformin 2021-0 Yes [id number] 500mg Take 1 U nivers ER 500 mg 5-31 tablet by ity o f 24 hr 00:00: mouth [place] tablet 00 daily with Medical breakfast. Branch STOP REGULAR METFORMIN. metformin 2021-0 Yes [id number] 500mg Take 1 U nivers ER 500 mg 5-31 tablet by ity o f 24 hr 00:00: mouth [place] tablet 00 daily with Medical breakfast. Branch STOP REGULAR METFORMIN. metformin 2021-0 Yes [id number] 500mg Take 1 U nivers ER 500 mg 5-31 tablet by ity o f 24 hr 00:00: mouth [place] tablet 00 daily with Medical breakfast. Branch STOP REGULAR METFORMIN. metformin 2021-0 Yes [id number] 500mg Take 1 U nivers ER 500 mg 5-31 tablet by ity o f 24 hr 00:00: mouth [place] tablet 00 daily with Medical breakfast. Branch STOP REGULAR METFORMIN. metformin 2021-0 Yes [id number] 500mg Take 1 U nivers ER 500 mg 5-31 tablet by ity o f 24 hr 00:00: mouth [place] tablet 00 daily with Medical breakfast. Branch STOP REGULAR METFORMIN. metformin 2021-0 Yes [id number] 500mg Take 1 U nivers ER 500 mg 5-31 tablet by ity o f 24 hr 00:00: mouth [place] tablet 00 daily with Medical breakfast. Branch STOP REGULAR METFORMIN. metformin 2021-0 Yes [id number] 500mg Take 1 U nivers ER 500 mg 5-31 tablet by ity o f 24 hr 00:00: mouth [place] tablet 00 daily with Medical breakfast. Branch STOP REGULAR METFORMIN. metformin 2021-0 Yes [id number] 500mg Take 1 U nivers ER 500 mg 5-31 tablet by ity o f 24 hr 00:00: mouth [place] tablet 00 daily with Medical breakfast. Branch STOP REGULAR METFORMIN. metformin 2021-0 Yes [id number] 500mg Take 1 U nivers ER 500 mg 5-31 tablet by ity o f 24 hr 00:00: mouth [place] tablet 00 daily with Medical breakfast. Branch STOP REGULAR METFORMIN. metformin 2021-0 Yes [id number] 500mg Take 1 U nivers ER 500 mg 5-31 tablet by ity o f 24 hr 00:00: mouth [place] tablet 00 daily with Medical breakfast. Branch STOP REGULAR METFORMIN. metformin 2021-0 Yes [id number] 500mg Take 1 U nivers ER 500 mg 5-31 tablet by ity o f 24 hr 00:00: mouth [place] tablet 00 daily with Medical breakfast. Branch STOP REGULAR METFORMIN. metformin 2021-0 Yes [id number] 500mg Take 1 U nivers ER 500 mg 5-31 tablet by ity o f 24 hr 00:00: mouth [place] tablet 00 daily with Medical breakfast. Branch STOP REGULAR METFORMIN. metformin 2021-0 Yes [id number] 500mg Take 1 U nivers ER 500 mg 5-31 tablet by ity o f 24 hr 00:00: mouth [place] tablet 00 daily with Medical breakfast. Branch STOP REGULAR METFORMIN. metformin 2021-0 Yes [id number] 500mg Take 1 U nivers ER 500 mg 5-31 tablet by ity o f 24 hr 00:00: mouth [place] tablet 00 daily with Medical breakfast. Branch STOP REGULAR METFORMIN. metformin 2021-0 Yes [id number] 500mg Take 1 U nivers ER 500 mg 5-31 tablet by ity o f 24 hr 00:00: mouth [place] tablet 00 daily with Medical breakfast. Branch STOP REGULAR METFORMIN. metformin 2021-0 Yes [id number] 500mg Take 1 U nivers ER 500 mg 5-31 tablet by ity o f 24 hr 00:00: mouth [place] tablet 00 daily with Medical breakfast. Branch STOP REGULAR METFORMIN. metformin 2021-0 Yes [id number] 500mg Take 1 U nivers ER 500 mg 5-31 tablet by ity o f 24 hr 00:00: mouth [place] tablet 00 daily with Medical breakfast. Branch STOP REGULAR METFORMIN. metformin 2021-0 Yes [id number] 500mg Take 1 U nivers ER 500 mg 5-31 tablet by ity o f 24 hr 00:00: mouth [place] tablet 00 daily with Medical breakfast. Branch STOP REGULAR METFORMIN. metformin 2021-0 Yes [id number] 500mg Take 1 U nivers ER 500 mg 5-31 tablet by ity o f 24 hr 00:00: mouth [place] tablet 00 daily with Medical breakfast. Branch STOP REGULAR METFORMIN. metformin 2021-0 Yes [id number] 500mg Take 1 U nivers ER 500 mg 5-31 tablet by ity o f 24 hr 00:00: mouth [place] tablet 00 daily with Medical breakfast. Branch STOP REGULAR METFORMIN. metformin 2021-0 Yes [id number] 500mg Take 1 U nivers ER 500 mg 5-31 tablet by ity o f 24 hr 00:00: mouth [place] tablet 00 daily with Medical breakfast. Branch STOP REGULAR METFORMIN. metformin 2021-0 Yes [id number] 500mg Take 1 U nivers ER 500 mg 5-31 tablet by ity o f 24 hr 00:00: mouth [place] tablet 00 daily with Medical breakfast. Branch STOP REGULAR METFORMIN. metformin 2021-0 Yes [id number] 500mg Take 1 U nivers ER 500 mg 5-31 tablet by ity o f 24 hr 00:00: mouth [place] tablet 00 daily with Medical breakfast. Branch STOP REGULAR METFORMIN. metformin 2021-0 2022- No [id number] 500mg Take 1 [facility] ER 500 mg 5-31 10-13 tablet by ity of 24 hr 00:00: 00:00 mouth [place] tablet 00 :00 daily with Medical breakfast. Branch STOP REGULAR METFORMIN. ibuprofen 2021-0 Yes [id number] 600mg Take 1 [facility] 600 mg 5-19 [id number] tablet by ity of tablet 00:00: mouth [place] 00 every 6 Medical (six) Branch hours as needed for Pain (scale 4-6). ibuprofen 2021-0 Yes [id number] 600mg Take 1 [facility] 600 mg 5-19 [id number] tablet by ity of tablet 00:00: mouth [place] 00 every 6 Medical (six) Branch hours as needed for Pain (scale 4-6). ibuprofen 2021-0 Yes [id number] 600mg Take 1 [facility] 600 mg 5-19 [id number] tablet by ity of tablet 00:00: mouth [place] 00 every 6 Medical (six) Branch hours as needed for Pain (scale 4-6). ibuprofen 2021-0 Yes [id number] 600mg Take 1 [facility] 600 mg 5-19 [id number] tablet by ity of tablet 00:00: mouth [place] 00 every 6 Medical (six) Branch hours as needed for Pain (scale 4-6). ibuprofen 2021-0 Yes [id number] 600mg Take 1 [facility] 600 mg 5-19 [id number] tablet by ity of tablet 00:00: mouth [place] 00 every 6 Medical (six) Branch hours as needed for Pain (scale 4-6). ibuprofen 2021-0 Yes [id number] 600mg Take 1 [facility] 600 mg 5-19 [id number] tablet by ity of tablet 00:00: mouth [place] 00 every 6 Medical (six) Branch hours as needed for Pain (scale 4-6). ibuprofen 2021-0 Yes [id number] 600mg Take 1 [facility] 600 mg 5-19 [id number] tablet by ity of tablet 00:00: mouth [place] 00 every 6 Medical (six) Branch hours as needed for Pain (scale 4-6). ibuprofen 2022-0 Yes [id number] 600mg Take 1 [facility] 600 mg 5-19 [id number] tablet by ity of tablet 00:00: mouth [place] 00 every 6 Medical (six) Branch hours as needed for Pain (scale 4-6). ibuprofen 2022-0 Yes [id number] 600mg Take 1 [facility] 600 mg 5-19 [id number] tablet by ity of tablet 00:00: mouth [place] 00 every 6 Medical (six) Branch hours as needed for Pain (scale 4-6). ibuprofen 2022-0 Yes [id number] 600mg Take 1 [facility] 600 mg 5-19 [id number] tablet by ity of tablet 00:00: mouth [place] 00 every 6 Medical (six) Branch hours as needed for Pain (scale 4-6). ibuprofen 2022-0 Yes [id number] 600mg Take 1 [facility] 600 mg 5-19 [id number] tablet by ity of tablet 00:00: mouth [place] 00 every 6 Medical (six) Branch hours as needed for Pain (scale 4-6). ibuprofen 2-0 Yes [id number] 600mg Take 1 [facility] 600 mg 5-19 [id number] tablet by ity of tablet 00:00: mouth [place] 00 every 6 Medical (six) Branch hours as needed for Pain (scale 4-6). ibuprofen 2022-0 Yes [id number] 600mg Take 1 [facility] 600 mg 5-19 [id number] tablet by ity of tablet 00:00: mouth [place] 00 every 6 Medical (six) Branch hours as needed for Pain (scale 4-6). ibuprofen 2022-0 Yes [id number] 600mg Take 1 [facility] 600 mg 5-19 [id number] tablet by ity of tablet 00:00: mouth [place] 00 every 6 Medical (six) Branch hours as needed for Pain (scale 4-6). ibuprofen 2022-0 Yes [id number] 600mg Take 1 [facility] 600 mg 5-19 [id number] tablet by ity of tablet 00:00: mouth [place] 00 every 6 Medical (six) Branch hours as needed for Pain (scale 4-6). ibuprofen 2022-0 Yes [id number] 600mg Take 1 [facility] 600 mg 5-19 [id number] tablet by ity of tablet 00:00: mouth [place] 00 every 6 Medical (six) Branch hours as needed for Pain (scale 4-6). ibuprofen 2022-0 Yes [id number] 600mg Take 1 [facility] 600 mg 5-19 [id number] tablet by ity of tablet 00:00: mouth [place] 00 every 6 Medical (six) Branch hours as needed for Pain (scale 4-6). ibuprofen 2022-0 Yes [id number] 600mg Take 1 [facility] 600 mg 5-19 [id number] tablet by ity of tablet 00:00: mouth [place] 00 every 6 Medical (six) Branch hours as needed for Pain (scale 4-6). ibuprofen 2022-0 Yes [id number] 600mg Take 1 [facility] 600 mg 5-19 [id number] tablet by ity of tablet 00:00: mouth [place] 00 every 6 Medical (six) Branch hours as needed for Pain (scale 4-6). ibuprofen 2022-0 Yes [id number] 600mg Take 1 [facility] 600 mg 5-19 [id number] tablet by ity of tablet 00:00: mouth [place] 00 every 6 Medical (six) Branch hours as needed for Pain (scale 4-6). ibuprofen 2022-0 Yes [id number] 600mg Take 1 [facility] 600 mg 5-19 [id number] tablet by ity of tablet 00:00: mouth [place] 00 every 6 Medical (six) Branch hours as needed for Pain (scale 4-6). ibuprofen 2022-0 Yes [id number] 600mg Take 1 [facility] 600 mg 5-19 [id number] tablet by ity of tablet 00:00: mouth [place] 00 every 6 Medical (six) Branch hours as needed for Pain (scale 4-6). ibuprofen 2022-0 Yes [id number] 600mg Take 1 [facility] 600 mg 5-19 [id number] tablet by ity of tablet 00:00: mouth [place] 00 every 6 Medical (six) Branch hours as needed for Pain (scale 4-6). ibuprofen 2022-0 Yes [id number] 600mg Take 1 [facility] 600 mg 5-19 [id number] tablet by ity of tablet 00:00: mouth [place] 00 every 6 Medical (six) Branch hours as needed for Pain (scale 4-6). ibuprofen 2022-0 Yes [id number] 600mg Take 1 [facility] 600 mg 5-19 [id number] tablet by ity of tablet 00:00: mouth [place] 00 every 6 Medical (six) Branch hours as needed for Pain (scale 4-6). ibuprofen 2022-0 Yes [id number] 600mg Take 1 [facility] 600 mg 5-19 [id number] tablet by ity of tablet 00:00: mouth [place] 00 every 6 Medical (six) Branch hours as needed for Pain (scale 4-6). ibuprofen 2022-0 Yes [id number] 600mg Take 1 [facility] 600 mg 5-19 [id number] tablet by ity of tablet 00:00: mouth [place] 00 every 6 Medical (six) Branch hours as needed for Pain (scale 4-6). ibuprofen 2022-0 Yes [id number] 600mg Take 1 [facility] 600 mg 5-19 [id number] tablet by ity of tablet 00:00: mouth [place] 00 every 6 Medical (six) Branch hours as needed for Pain (scale 4-6). ibuprofen 2022-0 Yes [id number] 600mg Take 1 [facility] 600 mg 5-19 [id number] tablet by ity of tablet 00:00: mouth [place] 00 every 6 Medical (six) Branch hours as needed for Pain (scale 4-6). ibuprofen 2022-0 Yes [id number] 600mg Take 1 [facility] 600 mg 5-19 [id number] tablet by ity of tablet 00:00: mouth [place] 00 every 6 Medical (six) Branch hours as needed for Pain (scale 4-6). ibuprofen 2022-0 Yes [id number] 600mg Take 1 [facility] 600 mg 5-19 [id number] tablet by ity of tablet 00:00: mouth [place] 00 every 6 Medical (six) Branch hours as needed for Pain (scale 4-6). ibuprofen 2022-0 Yes [id number] 600mg Take 1 [facility] 600 mg 5-19 [id number] tablet by ity of tablet 00:00: mouth [place] 00 every 6 Medical (six) Branch hours as needed for Pain (scale 4-6). ibuprofen 2022-0 Yes [id number] 600mg Take 1 [facility] 600 mg 5-19 [id number] tablet by ity of tablet 00:00: mouth [place] 00 every 6 Medical (six) Branch hours as needed for Pain (scale 4-6). ibuprofen 2022-0 Yes [id number] 600mg Take 1 [facility] 600 mg 5-19 [id number] tablet by ity of tablet 00:00: mouth [place] 00 every 6 Medical (six) Branch hours as needed for Pain (scale 4-6). ibuprofen 2022-0 Yes [id number] 600mg Take 1 [facility] 600 mg 5-19 [id number] tablet by ity of tablet 00:00: mouth [place] 00 every 6 Medical (six) Branch hours as needed for Pain (scale 4-6). ibuprofen 2021-0 Yes [id number] 600mg Take 1 [facility] 600 mg 02-11 [id number] tablet by ity of tablet 00:00: mouth [place] 00 every 6 Medical (six) Branch hours as needed for Pain (scale 4-6). ibuprofen 0 2- No [id number] 600mg Take 1 [facility] 600 mg 02-11 [id number] tablet by ity o f tablet 00:00: 00:00 mouth [place] 00 :00 every 6 Medical (six) Branch hours as needed for Pain (scale 4-6). ibuprofen 2021-0 2021- No [id number] 600mg Take 1 [facility] 600 mg 02-11 [id number] tablet by ity o f tablet 00:00: 00:00 mouth [place] 00 :00 every 6 Medical (six) Branch hours as needed for Pain (scale 4-6). ibuprofen 2021-2- No [id number] 600mg Take 1 [facility] 600 mg 02-11 [id number] tablet by ity o f tablet 00:00: 00:00 mouth [place] 00 :00 every 6 Medical (six) Branch hours as needed for Pain (scale 4-6). topiramate 2021-0 Yes [id number] 50mg Take 2 [facility] 25 mg 5-16 tablets by ity of tablet 00:00: mouth (two) Medical times Branch daily. topiramate 2021-0 Yes [id number] 50mg Take 2 [facility] 25 mg 5-16 tablets by ity of tablet 00:00: mouth (two) Medical times Branch daily. topiramate 2021-0 Yes [id number] 50mg Take 2 [facility] 25 mg 5-16 tablets by ity of tablet 00:00: mouth (two) Medical times Branch daily. topiramate 2021-0 Yes [id number] 50mg Take 2 [facility] 25 mg 5-16 tablets by ity of tablet 00:00: mouth 2 (two) Medical times Branch daily. topiramate 2022-0 Yes [id number] 50mg Take 2 [facility] 25 mg 5-16 tablets by ity of tablet 00:00: mouth 2 (two) Medical times Branch daily. topiramate 2022-0 Yes [id number] 50mg Take 2 [facility] 25 mg 5-16 tablets by ity of tablet 00:00: mouth 2 (two) Medical times Branch daily. topiramate 2022-0 Yes [id number] 50mg Take 2 [facility] 25 mg 5-16 tablets by ity of tablet 00:00: mouth 2 (two) Medical times Branch daily. topiramate 2022-0 Yes [id number] 50mg Take 2 [facility] 25 mg 5-16 tablets by ity of tablet 00:00: mouth 2 (two) Medical times Branch daily. topiramate 2022-0 Yes [id number] 50mg Take 2 [facility] 25 mg 5-16 tablets by ity of tablet 00:00: mouth 2 (two) Medical times Branch daily. SUMAtriptan 2022-0 Yes [id number] 50mg Take 1 [facility] 50 mg 5-16 tablet by ity of tablet 00:00: mouth as [place] 00 needed for Medical Migraine. Branch topiramate 2-0 Yes [id number] 50mg Take 2 [facility] 25 mg 5-16 tablets by ity of tablet 00:00: mouth 2 (two) Medical times Branch daily. SUMAtriptan 2-0 Yes [id number] 50mg Take 1 [facility] 50 mg 5-16 tablet by ity of tablet 00:00: mouth as [place] 00 needed for Medical Migraine. Branch topiramate 2-0 Yes [id number] 50mg Take 2 [facility] 25 mg 5-16 tablets by ity of tablet 00:00: mouth 2 (two) Medical times Branch daily. SUMAtriptan 2022-0 Yes [id number] 50mg Take 1 [facility] 50 mg 5-16 tablet by ity of tablet 00:00: mouth as [place] 00 needed for Medical Migraine. Branch topiramate 2-0 Yes [id number] 50mg Take 2 [facility] 25 mg 5-16 tablets by ity of tablet 00:00: mouth 2 (two) Medical times Branch daily. SUMAtriptan 2022-0 Yes [id number] 50mg Take 1 [facility] 50 mg 5-16 tablet by ity of tablet 00:00: mouth as [place] 00 needed for Medical Migraine. Branch topiramate 2022-0 Yes [id number] 50mg Take 2 [facility] 25 mg 5-16 tablets by ity of tablet 00:00: mouth 2 (two) Medical times Branch daily. SUMAtriptan 2-0 Yes [id number] 50mg Take 1 [facility] 50 mg 5-16 tablet by [facility] tablet 00:00: mouth as 00 needed for Medical Migraine. Branch topiramate 2-0 Yes [id number] 50mg Take 2 [facility] 25 mg 5-16 tablets by [facility] tablet 00:00: mouth 2 [place] 00 (two) Medical times Branch daily. SUMAtriptan 2-0 Yes [id number] 50mg Take 1 [facility] 50 mg 5-16 tablet by [facility] tablet 00:00: mouth as 00 needed for Medical Migraine. Branch topiramate 2-0 Yes [id number] 50mg Take 2 [facility] 25 mg 5-16 tablets by [facility] tablet 00:00: mouth 2 [place] (two) Medical times Branch daily. topiramate 2-0 Yes [id number] 50mg Take 2 [facility] 25 mg 5-16 tablets by [facility] of tablet 00:00: mouth 2 [place] (two) Medical times Branch daily. topiramate 2-0 Yes [id number] 50mg Take 2 [facility] 25 mg 5-16 tablets by [facility] of tablet 00:00: mouth 2 [place] (two) Medical times Branch daily. topiramate 2-0 Yes [id number] 50mg Take 2 [facility] 25 mg 5-16 tablets by [facility] of tablet 00:00: mouth 2 [place] (two) Medical times Branch daily. topiramate 2-0 Yes [id number] 50mg Take 2 [facility] 25 mg 5-16 tablets by [facility] of tablet 00:00: mouth 2 [place] (two) Medical times Branch daily. topiramate 2-0 Yes [id number] 50mg Take 2 [facility] 25 mg 5-16 tablets by [facility] of tablet 00:00: mouth 2 [place] 00 (two) Medical times Branch daily. topiramate 2022-0 2022- No [id number] 50mg Take 2 [facility] 25 mg 5-16 09-01 tablets by [facility] of tablet 00:00: 00:00 mouth 2 [place] 00 :00 (two) Medical times Branch daily. SUMAtriptan 2022-0 2022- No [id number] 50mg Take 1 [facility] 50 mg 5-16 06-17 tablet by [facility] of tablet 00:00: 00:00 mouth as [place] 00 :00 needed for Medical Migraine. Branch ALCOHOL 2021-0 Yes 1{dose} Apply 1 [...] PadM 5-08 Dose to ity of 00:00: [facility](s) [place] 00 before Medical meals. Branch ALCOHOL 2021-0 Yes 1{dose} Apply 1 [facility] ers PADS PadM 5-08 Dose to ity of 00:00: [facility]) [place] 00 before Medical meals. Branch ALCOHOL 2021-0 Yes 1{dose} Apply 1 [facility] ers PADS PadM 5-08 Dose to ity of 00:00: [facility]) [place] 00 before Medical meals. Branch ALCOHOL 2021-0 Yes 1{dose} Apply 1 [facility] ers PADS PadM 5-08 Dose to ity of 00:00: [facility]) [place] 00 before Medical meals. Branch ALCOHOL 2021-0 Yes 1{dose} Apply 1 [facility] ers PADS PadM 5-08 Dose to [facility]y of 00:00: [facility]) [place] 00 before Medical meals. Branch ALCOHOL 2021-0 Yes 1{dose} Apply 1 [facility] ers PADS PadM 5-08 Dose to ity of 00:00: [facility]) [place] 00 before Medical meals. Branch ALCOHOL 2021-0 Yes 1{dose} Apply 1 [facility] ers PADS PadM 5-08 Dose to ity of 00:00: [facility]) [place] 00 before Medical meals. Branch ALCOHOL 2021-0 Yes 1{dose} Apply 1 [facility] ers PADS PadM 5-08 Dose to ity of 00:00: [facility]) [place] 00 before Medical meals. Branch ALCOHOL 2021-0 Yes 1{dose} Apply 1 [facility] ers PADS PadM 5-08 Dose to ity of 00:00: [facility]) [place] 00 before Medical meals. Branch ALCOHOL 2021-0 Yes 1{dose} Apply 1 [facility] ers PADS PadM 5-08 Dose to ity of 00:00: [facility]) [place] 00 before Medical meals. Branch ALCOHOL 2021-2021- No 1{dose} Apply 1 [facility] vers PADS PadM 5-08 09-22 Dose to ity of 00:00: 00:00 area(s) [place] 00 :00 before Medical meals. Branch ALCOHOL 2021- No 1{dose} Apply 1 [facility] vers PADS PadM 01-31 Dose to ity of 00:00: 00:00 area(s) [place] 00 :00 before Medical meals. Branch ALCOHOL 2021- No 1{dose} Apply 1 [facility] vers PADS PadM 01-31 Dose to ity of 00:00: 00:00 area(s) [place] 00 :00 before Medical meals. Branch pregabalin Yes [id number] 150mg Take 1 [facility] 150 mg 4-29 capsule by it[facility] of capsule 00:00: mouth 3 (three) Medical times Branch daily. busPIRone Yes [id number] 20mg Take 2 [facility] [place] 10 mg 4-29 tablets by [facility] of tablet 00:00: mouth 2 (two) Medical times Branch daily. citalopram Yes [id number] 40mg Take 1 [facility] 40 mg 4-29 tablet by [facility] of tablet 00:00: mouth daily. Medical Branch pregabalin 0 Yes [id number] 150mg Take 1 [facility] 150 mg 4-29 capsule by it[facility] of capsule 00:00: mouth 3 (three) Medical times Branch daily. busPIRone 2021-0 Yes [id number] 20mg Take 2 [facility] [place] 10 mg 4-29 tablets by [facility] of tablet 00:00: mouth 2 (two) Medical times Branch daily. citalopram 2021-0 Yes [id number] 40mg Take 1 [facility] 40 mg 4-29 tablet by [facility] of tablet 00:00: mouth 00 daily. Medical Branch pregabalin 0 Yes [id number] 150mg Take 1 [facility] 150 mg 4-29 capsule by [facility] of capsule 00:00: mouth 3 (three) Medical times Branch daily. busPIRone 2021-0 Yes [id number] 20mg Take 2 [facility] [place] 10 mg 4-29 tablets by [facility] of tablet 00:00: mouth 2 (two) Medical times Branch daily. citalopram 2021-0 Yes [id number] 40mg Take 1 [facility] 40 mg 4-29 tablet by [facility] of tablet 00:00: mouth 00 daily. Medical Branch pregabalin 2021-0 Yes [id number] 150mg Take 1 [facility] 150 mg 4-29 capsule by [facility] of capsule 00:00: mouth 3 (three) Medical times Branch daily. busPIRone 2021-0 Yes [id number] 20mg Take 2 [facility] [place] 10 mg 4-29 tablets by [facility] of tablet 00:00: mouth (two) Medical times Branch daily. citalopram 2021-0 Yes [id number] 40mg Take 1 [facility] 40 mg 4-29 tablet by [facility] of tablet 00:00: mouth 00 daily. Medical Branch pregabalin 2021-0 Yes [id number] 150mg Take 1 [facility] 150 mg 4-29 capsule by it[facility] of capsule 00:00: mouth (three) Medical times Branch daily. busPIRone 2021-0 Yes [id number] 20mg Take 2 [facility] [place] 10 mg 4-29 tablets by [facility] of tablet 00:00: mouth (two) Medical times Branch daily. citalopram 2021-0 Yes [id number] 40mg Take 1 [facility] 40 mg 4-29 tablet by [facility] of tablet 00:00: mouth daily. Medical Branch pregabalin 2021-0 Yes [id number] 150mg Take 1 [facility] 150 mg 4-29 capsule by [facility] of capsule 00:00: mouth (three) Medical times Branch daily. busPIRone 2021-0 Yes [id number] 20mg Take 2 [facility] [place] 10 mg 4-29 tablets by [facility] of tablet 00:00: mouth (two) Medical times Branch daily. citalopram 2021-0 Yes [id number] 40mg Take 1 [facility] 40 mg 4-29 tablet by [facility] of tablet 00:00: mouth daily. Medical Branch pregabalin 2021-0 Yes [id number] 150mg Take 1 [facility] 150 mg 4-29 capsule by [facility] of capsule 00:00: mouth 3 (three) Medical times Branch daily. busPIRone 2021-0 Yes [id number] 20mg Take 2 [facility] [place] 10 mg 4-29 tablets by [facility] of tablet 00:00: mouth (two) Medical times Branch daily. citalopram 2021-0 Yes [id number] 40mg Take 1 [facility] 40 mg 4-29 tablet by [facility] of tablet 00:00: mouth 00 daily. Medical Branch pregabalin 2021-0 Yes [id number] 150mg Take 1 [facility] 150 mg 4-29 capsule by [facility] of capsule 00:00: mouth 3 (three) Medical times Branch daily. busPIRone 2021-0 Yes [id number] 20mg Take 2 [facility] [place] 10 mg 4-29 tablets by [facility] of tablet 00:00: mouth (two) Medical times Branch daily. citalopram 2021-0 Yes [id number] 40mg Take 1 [facility] 40 mg 4-29 tablet by [facility] of tablet 00:00: mouth 00 daily. Medical Branch pregabalin 2021-0 Yes [id number] 150mg Take 1 [facility] 150 mg 4-29 capsule by it[facility] of capsule 00:00: mouth 3 (three) Medical times Branch daily. busPIRone 2021-0 Yes [id number] 20mg Take 2 [facility] [place] 10 mg 4-29 tablets by ity of tablet 00:00: mouth (two) Medical times Branch daily. citalopram 2021-0 Yes [id number] 40mg Take 1 [facility] 40 mg 4-29 tablet by [facility] of tablet 00:00: mouth 00 daily. Medical Branch pregabalin 2021-0 Yes [id number] 150mg Take 1 [facility] 150 mg 4-29 capsule by it[facility] of capsule 00:00: mouth (three) Medical times Branch daily. busPIRone 2021-0 Yes [id number] 20mg Take 2 [facility] [place] 10 mg 4-29 tablets by [facility] of tablet 00:00: mouth (two) Medical times Branch daily. citalopram 2021-0 Yes [id number] 40mg Take 1 [facility] 40 mg 4-29 tablet by it[facility] of tablet 00:00: mouth 00 daily. Medical Branch pregabalin 2021-0 Yes [id number] 150mg Take 1 [facility] 150 mg 4-29 capsule by [facility] of capsule 00:00: mouth 3 (three) Medical times Branch daily. busPIRone 2021-0 Yes [id number] 20mg Take 2 [facility] [place] 10 mg 4-29 tablets by [facility] of tablet 00:00: mouth 2 (two) Medical times Branch daily. citalopram 2-0 Yes [id number] 40mg Take 1 [facility] 40 mg 4-29 tablet by [facility] of tablet 00:00: mouth 00 daily. Medical Branch pregabalin 2021-0 Yes [id number] 150mg Take 1 [facility] 150 mg 4-29 capsule by [facility] of capsule 00:00: mouth 3 (three) Medical times Branch daily. busPIRone 2021-0 Yes [id number] 20mg Take 2 [facility] [place] 10 mg 4-29 tablets by [facility] of tablet 00:00: mouth 2 (two) Medical times Branch daily. citalopram 2021-0 Yes [id number] 40mg Take 1 [facility] 40 mg 4-29 tablet by [facility] of tablet 00:00: mouth 00 daily. Medical Branch pregabalin 2021-0 Yes [id number] 150mg Take 1 [facility] 150 mg 4-29 capsule by it[facility] of capsule 00:00: mouth (three) Medical times Branch daily. busPIRone 2021-0 Yes [id number] 20mg Take 2 [facility] [place] 10 mg 4-29 tablets by [facility] of tablet 00:00: mouth (two) Medical times Branch daily. citalopram 2021-0 Yes [id number] 40mg Take 1 [facility] 40 mg 4-29 tablet by [facility] of tablet 00:00: mouth 00 daily. Medical Branch pregabalin 2021-0 Yes [id number] 150mg Take 1 [facility] 150 mg 4-29 capsule by [facility] of capsule 00:00: mouth 3 (three) Medical times Branch daily. busPIRone 2-0 Yes [id number] 20mg Take 2 [facility] [place] 10 mg 4-29 tablets by [facility] of tablet 00:00: mouth (two) Medical times Branch daily. citalopram 2-0 Yes [id number] 40mg Take 1 [facility] 40 mg 4-29 tablet by it[facility] of tablet 00:00: mouth 00 daily. Medical Branch pregabalin 2021-0 Yes [id number] 150mg Take 1 [facility] 150 mg 4-29 capsule by ity of capsule 00:00: mouth 3 (three) Medical times Branch daily. busPIRone 2021-0 Yes [id number] 20mg Take 2 [facility] [place] 10 mg 4-29 tablets by [facility]y of tablet 00:00: mouth 2 (two) Medical times Branch daily. citalopram 2021-0 Yes [id number] 40mg Take 1 [facility] 40 mg 4-29 tablet by [facility]y of tablet 00:00: mouth daily. Medical Branch pregabalin 2021-0 Yes [id number] 150mg Take 1 [facility] 150 mg 4-29 capsule by [facility]y of capsule 00:00: mouth 3 (three) Medical times Branch daily. busPIRone 2021-0 Yes [id number] 20mg Take 2 [facility] [place] 10 mg 4-29 tablets by [facility]y of tablet 00:00: mouth (two) Medical times Branch daily. citalopram 2021-0 Yes [id number] 40mg Take 1 [facility] 40 mg 4-29 tablet by ity of tablet 00:00: mouth daily. Medical Branch pregabalin 2021-0 Yes [id number] 150mg Take 1 [facility] 150 mg 4-29 capsule by [facility]y of capsule 00:00: mouth 3 (three) Medical times Branch daily. busPIRone 2021-0 Yes [id number] 20mg Take 2 [facility] [place] 10 mg 4-29 tablets by [facility]y of tablet 00:00: mouth (two) Medical times Branch daily. citalopram 2021-0 Yes [id number] 40mg Take 1 [facility] 40 mg 4-29 tablet by [facility]y of tablet 00:00: mouth daily. Medical Branch pregabalin 2021-0 Yes [id number] 150mg Take 1 [facility] 150 mg 4-29 capsule by ity of capsule 00:00: mouth 3 (three) Medical times Branch daily. busPIRone 2-0 Yes [id number] 20mg Take 2 [facility] [place] 10 mg 4-29 tablets by [facility] of tablet 00:00: mouth 2 (two) Medical times Branch daily. citalopram 2-0 Yes [id number] 40mg Take 1 [facility] 40 mg 4-29 tablet by [facility] of tablet 00:00: mouth daily. Medical Branch pregabalin 2021-0 Yes [id number] 150mg Take 1 [facility] 150 mg 4-29 capsule by [facility] of capsule 00:00: mouth 3 (three) Medical times Branch daily. busPIRone 2021-0 Yes [id number] 20mg Take 2 [facility] [place] 10 mg 4-29 tablets by [facility] of tablet 00:00: mouth (two) Medical times Branch daily. citalopram 2021-0 Yes [id number] 40mg Take 1 [facility] 40 mg 4-29 tablet by [facility] of tablet 00:00: mouth 00 daily. Medical Branch pregabalin 2021-0 Yes [id number] 150mg Take 1 [facility] 150 mg 4-29 capsule by [facility] of capsule 00:00: mouth (three) Medical times Branch daily. busPIRone 2021-0 Yes [id number] 20mg Take 2 [facility] [place] 10 mg 4-29 tablets by [facility] of tablet 00:00: mouth (two) Medical times Branch daily. citalopram 2021-0 Yes [id number] 40mg Take 1 [facility] 40 mg 4-29 tablet by [facility] of tablet 00:00: mouth daily. Medical Branch pregabalin 2021-0 Yes [id number] 150mg Take 1 [facility] 150 mg 4-29 capsule by [facility] of capsule 00:00: mouth (three) Medical times Branch daily. busPIRone 2021-0 Yes [id number] 20mg Take 2 [facility] [place] 10 mg 4-29 tablets by [facility] of tablet 00:00: mouth (two) Medical times Branch daily. citalopram 2021-0 Yes [id number] 40mg Take 1 [facility] 40 mg 4-29 tablet by [facility] of tablet 00:00: mouth 00 daily. Medical Branch pregabalin 2021-0 Yes [id number] 150mg Take 1 [facility] 150 mg 4-29 capsule by [facility] of capsule 00:00: mouth 3 (three) Medical times Branch daily. busPIRone 2021-0 Yes [id number] 20mg Take 2 [facility] [place] 10 mg 4-29 tablets by [facility] of tablet 00:00: mouth (two) Medical times Branch daily. citalopram 2021-0 Yes [id number] 40mg Take 1 [facility] 40 mg 4-29 tablet by [facility]y of tablet 00:00: mouth 00 daily. Medical Branch pregabalin 2021-0 Yes [id number] 150mg Take 1 [facility] 150 mg 4-29 capsule by [facility] of capsule 00:00: mouth 3 (three) Medical times Branch daily. busPIRone 2021-0 Yes [id number] 20mg Take 2 [facility] [place] 10 mg 4-29 tablets by [facility]y of tablet 00:00: mouth (two) Medical times Branch daily. citalopram 2021-0 Yes [id number] 40mg Take 1 [facility] 40 mg 4-29 tablet by [facility]y of tablet 00:00: mouth 00 daily. Medical Branch pregabalin 2021-0 Yes [id number] 150mg Take 1 [facility] 150 mg 4-29 capsule by ity of capsule 00:00: mouth 3 (three) Medical times Branch daily. busPIRone 2021-0 Yes [id number] 20mg Take 2 [facility] [place] 10 mg 4-29 tablets by [facility]y of tablet 00:00: mouth (two) Medical times Branch daily. citalopram 2021-0 Yes [id number] 40mg Take 1 [facility] 40 mg 4-29 tablet by [facility]y of tablet 00:00: mouth daily. Medical Branch pregabalin 2021-0 Yes [id number] 150mg Take 1 [facility] 150 mg 4-29 capsule by [facility]y of capsule 00:00: mouth (three) Medical times Branch daily. busPIRone 2021-0 Yes [id number] 20mg Take 2 [facility] [place] 10 mg 4-29 tablets by [facility] of tablet 00:00: mouth (two) Medical times Branch daily. citalopram 2021-0 Yes [id number] 40mg Take 1 [facility] 40 mg 4-29 tablet by [facility]y of tablet 00:00: mouth 00 daily. Medical Branch pregabalin 2021-0 Yes [id number] 150mg Take 1 [facility] 150 mg 4-29 capsule by [facility] of capsule 00:00: mouth 3 (three) Medical times Branch daily. busPIRone 2021-0 Yes [id number] 20mg Take 2 [facility] [place] 10 mg 4-29 tablets by [facility] of tablet 00:00: mouth 2 [place] 00 (two) Medical times Branch daily. citalopram 2021-0 Yes [id number] 40mg Take 1 [facility] 40 mg 4-29 tablet by [facility]y of tablet 00:00: mouth 00 daily. Medical Branch pregabalin 2021-0 Yes [id number] 150mg Take 1 [facility] 150 mg 4-29 capsule by ity of capsule 00:00: mouth 3 (three) Medical times Branch daily. busPIRone 2021-0 Yes [id number] 20mg Take 2 [facility] [place] 10 mg 4-29 tablets by [facility] of tablet 00:00: mouth (two) Medical times Branch daily. citalopram 2021-0 Yes [id number] 40mg Take 1 [facility] 40 mg 4-29 tablet by [facility]y of tablet 00:00: mouth 00 daily. Medical Branch pregabalin 2021-0 Yes [id number] 150mg Take 1 [facility] 150 mg 4-29 capsule by ity of capsule 00:00: mouth (three) Medical times Branch daily. busPIRone 2021-0 Yes [id number] 20mg Take 2 [facility] [place] 10 mg 4-29 tablets by [facility]y of tablet 00:00: mouth (two) Medical times Branch daily. citalopram 2021-0 Yes [id number] 40mg Take 1 [facility] 40 mg 4-29 tablet by [facility]y of tablet 00:00: mouth daily. Medical Branch pregabalin 2021-0 Yes [id number] 150mg Take 1 [facility] 150 mg 4-29 capsule by ity of capsule 00:00: mouth (three) Medical times Branch daily. busPIRone 2-0 Yes [id number] 20mg Take 2 [facility] [place] 10 mg 4-29 tablets by ity of tablet 00:00: mouth (two) Medical times Branch daily. citalopram 2-0 Yes [id number] 40mg Take 1 [facility] 40 mg 4-29 tablet by ity of tablet 00:00: mouth 00 daily. Medical Branch pregabalin 2021-0 Yes [id number] 150mg Take 1 [facility] 150 mg 4-29 capsule by ity of capsule 00:00: mouth 3 (three) Medical times Branch daily. busPIRone 2022-0 Yes [id number] 20mg Take 2 [facility] [place] 10 mg 4-29 tablets by [facility]y of tablet 00:00: mouth (two) Medical times Branch daily. citalopram 2021-0 Yes [id number] 40mg Take 1 [facility] 40 mg 4-29 tablet by ity of tablet 00:00: mouth 00 daily. Medical Branch pregabalin 2021-0 Yes [id number] 150mg Take 1 [facility] 150 mg 4-29 capsule by ity of capsule 00:00: mouth 3 (three) Medical times Branch daily. busPIRone 2021-0 Yes [id number] 20mg Take 2 [facility] [place] 10 mg 4-29 tablets by [facility]y of tablet 00:00: mouth (two) Medical times Branch daily. citalopram 2021-0 Yes [id number] 40mg Take 1 [facility] 40 mg 4-29 tablet by [facility]y of tablet 00:00: mouth daily. Medical Branch pregabalin 2021-0 Yes [id number] 150mg Take 1 [facility] 150 mg 4-29 capsule by [facility] of capsule 00:00: mouth (three) Medical times Branch daily. busPIRone 2021-0 Yes [id number] 20mg Take 2 [facility] [place] 10 mg 4-29 tablets by [facility] of tablet 00:00: mouth (two) Medical times Branch daily. citalopram 2021-0 Yes [id number] 40mg Take 1 [facility] 40 mg 4-29 tablet by [facility] of tablet 00:00: mouth daily. Medical Branch pregabalin 2021-0 Yes [id number] 150mg Take 1 [facility] 150 mg 4-29 capsule by it[facility] of capsule 00:00: mouth 3 (three) Medical times Branch daily. busPIRone 2021-0 Yes [id number] 20mg Take 2 [facility] [place] 10 mg 4-29 tablets by [facility] of tablet 00:00: mouth (two) Medical times Branch daily. citalopram 2021-0 Yes [id number] 40mg Take 1 [facility] 40 mg 4-29 tablet by [facility] of tablet 00:00: mouth 00 daily. Medical Branch pregabalin 2021-0 Yes [id number] 150mg Take 1 [facility] 150 mg 4-29 capsule by [facility] of capsule 00:00: mouth 3 (three) Medical times Branch daily. busPIRone 2021-0 Yes [id number] 20mg Take 2 [facility] [place] 10 mg 4-29 tablets by [facility] of tablet 00:00: mouth (two) Medical times Branch daily. citalopram 2021-0 Yes [id number] 40mg Take 1 [facility] 40 mg 4-29 tablet by [facility] of tablet 00:00: mouth 00 daily. Medical Branch pregabalin 2021-0 Yes [id number] 150mg Take 1 [facility] 150 mg 4-29 capsule by it[facility] of capsule 00:00: mouth (three) Medical times Branch daily. busPIRone 2021-0 Yes [id number] 20mg Take 2 [facility] [place] 10 mg 4-29 tablets by [facility] of tablet 00:00: mouth (two) Medical times Branch daily. citalopram 2021-0 Yes [id number] 40mg Take 1 [facility] 40 mg 4-29 tablet by [facility] of tablet 00:00: mouth daily. Medical Branch pregabalin 2021-0 Yes [id number] 150mg Take 1 [facility] 150 mg 4-29 capsule by [facility] of capsule 00:00: mouth (three) Medical times Branch daily. busPIRone 2021-0 Yes [id number] 20mg Take 2 [facility] [place] 10 mg 4-29 tablets by [facility] of tablet 00:00: mouth (two) Medical times Branch daily. citalopram 2021-0 Yes [id number] 40mg Take 1 [facility] 40 mg 4-29 tablet by ity of tablet 00:00: mouth daily. Medical Branch pregabalin 2021-0 Yes [id number] 150mg Take 1 [facility] 150 mg 4-29 capsule by ity of capsule 00:00: mouth (three) Medical times Branch daily. busPIRone 2021-0 Yes [id number] 20mg Take 2 [facility] [place] 10 mg 4-29 tablets by [facility] of tablet 00:00: mouth (two) Medical times Branch daily. citalopram 2021-0 Yes [id number] 40mg Take 1 [facility] 40 mg 4-29 tablet by it[facility] of tablet 00:00: mouth [place] 00 daily. Medical Branch citalopram 0 Yes [id number] 40mg Take 1 [facility] 40 mg 4-29 tablet by ity of tablet 00:00: mouth [place] 00 daily. Medical Branch citalopram 0 Yes [id number] 40mg Take 1 [facility] 40 mg 4-29 tablet by [facility]y of tablet 00:00: mouth [place] 00 daily. Medical Branch citalopram 0 Yes [id number] 40mg Take 1 [facility] 40 mg 4-29 tablet by ity of tablet 00:00: mouth [place] 00 daily. Medical Branch citalopram 0 Yes [id number] 40mg Take 1 [facility] 40 mg 4-29 tablet by ity of tablet 00:00: mouth [place] 00 daily. Medical Branch citalopram Yes [id number] 40mg Take 1 [facility] 40 mg 4-29 tablet by it[facility] of tablet 00:00: mouth [place] 00 daily. Medical Branch citalopram Yes [id number] 40mg Take 1 [facility] 40 mg 4-29 tablet by ity of tablet 00:00: mouth [place] 00 daily. Medical Branch citalopram Yes [id number] 40mg Take 1 [facility] 40 mg 4-29 tablet by ity of tablet 00:00: mouth [place] 00 daily. Medical Branch citalopram Yes [id number] 40mg Take 1 [facility] 40 mg 4-29 tablet by ity of tablet 00:00: mouth [place] 00 daily. Medical Branch citalopram 0 Yes [id number] 40mg Take 1 [facility] 40 mg 4-29 tablet by ity of tablet 00:00: mouth [place] 00 daily. [facility] Branch citalopram 0 Yes [id number] 40mg Take 1 [facility] 40 mg 4-29 tablet by ity of tablet 00:00: mouth [place] 00 daily. [facility] Branch citalopram 0 Yes [id number] 40mg Take 1 [facility] 40 mg 4-29 tablet by ity of tablet 00:00: mouth [place] 00 daily. [facility] Branch citalopram 0 Yes [id number] 40mg Take 1 [facility] 40 mg 4-29 tablet by ity of tablet 00:00: mouth [place] 00 daily. [facility] Branch citalopram 0 Yes [id number] 40mg Take 1 [facility] 40 mg 4-29 tablet by ity of tablet 00:00: mouth [place] 00 daily. [facility] Branch citalopram 0 Yes [id number] 40mg Take 1 [facility] 40 mg 4-29 tablet by ity of tablet 00:00: mouth [place] 00 daily. [facility] Branch citalopram 0 Yes [id number] 40mg Take 1 [facility] 40 mg 4-29 tablet by ity of tablet 00:00: mouth [place] 00 daily. [facility] Branch citalopram 0 Yes [id number] 40mg Take 1 [facility] 40 mg 4-29 tablet by ity of tablet 00:00: mouth [place] 00 daily. [facility] Branch citalopram Yes [id number] 40mg Take 1 [facility] 40 mg 4-29 tablet by ity of tablet 00:00: mouth [place] 00 daily. [facility] Branch citalopram Yes [id number] 40mg Take 1 [facility] 40 mg 4-29 tablet by ity of tablet 00:00: mouth [place] 00 daily. [facility] Branch citalopram 0 Yes [id number] 40mg Take 1 [facility] 40 mg 4-29 tablet by ity of tablet 00:00: mouth [place] 00 daily. [facility] Branch citalopram Yes [id number] 40mg Take 1 [facility] 40 mg 4-29 tablet by ity of tablet 00:00: mouth [place] 00 daily. [facility] Branch citalopram 0 Yes [id number] 40mg Take 1 [facility] 40 mg 4-29 tablet by ity of tablet 00:00: mouth [place] 00 daily. [facility] Branch citalopram 0 Yes [id number] 40mg Take 1 [facility] 40 mg 4-29 tablet by ity of tablet 00:00: mouth [place] 00 daily. [facility] Branch citalopram 0 Yes [id number] 40mg Take 1 [facility] 40 mg 4-29 tablet by ity of tablet 00:00: mouth [place] 00 daily. [facility] Branch citalopram 0 Yes [id number] 40mg Take 1 [facility] 40 mg 4-29 tablet by ity of tablet 00:00: mouth 00 daily. [facility] Branch citalopram 2021-0 Yes [id number] 40mg Take 1 [facility] 40 mg 4-29 tablet by [facility] of tablet 00:00: mouth 00 daily. [facility] Branch pregabalin 2021-0 Yes [id number] 150mg Take 1 [facility] 150 mg 4-29 capsule by [facility] of capsule 00:00: mouth 3 (three) Medical times Branch daily. busPIRone 2021-0 Yes [id number] 20mg Take 2 [facility] [place] 10 mg 4-29 tablets by [facility] of tablet 00:00: mouth (two) Medical times Branch daily. citalopram 2021-0 Yes [id number] 40mg Take 1 [facility] 40 mg 4-29 tablet by [facility] of tablet 00:00: mouth 00 daily. [facility] pregabalin 2021-0 Yes [id number] 150mg Take 1 [facility] 150 mg 4-29 capsule by [facility] of capsule 00:00: mouth (three) Medical times Branch daily. busPIRone 2021-0 Yes [id number] 20mg Take 2 [facility] [place] 10 mg 4-29 tablets by [facility] of tablet 00:00: mouth (two) Medical times Branch daily. citalopram 2021-0 Yes [id number] 40mg Take 1 [facility] 40 mg 4-29 tablet by [facility] of tablet 00:00: mouth 00 daily. [facility] pregabalin 2021-0 Yes [id number] 150mg Take 1 [facility] 150 mg 4-29 capsule by [facility] of capsule 00:00: mouth 3 (three) Medical times Branch daily. busPIRone 2021-0 Yes [id number] 20mg Take 2 [facility] [place] 10 mg 4-29 tablets by [facility] of tablet 00:00: mouth (two) Medical times Branch daily. citalopram 2021-0 Yes [id number] 40mg Take 1 [facility] 40 mg 4-29 tablet by [facility] of tablet 00:00: mouth 00 daily. [facility] pregabalin 2021-0 Yes [id number] 150mg Take 1 [facility] 150 mg 4-29 capsule by [facility] of capsule 00:00: mouth 3 (three) Medical times Branch daily. busPIRone 2021-0 Yes [id number] 20mg Take 2 [facility] [place] 10 mg 4-29 tablets by [facility] of tablet 00:00: mouth (two) Medical times Branch daily. citalopram 2021-0 Yes [id number] 40mg Take 1 [facility] 40 mg 4-29 tablet by [facility] of tablet 00:00: mouth daily. [facility] pregabalin 2021-0 Yes [id number] 150mg Take 1 [facility] 150 mg 4-29 capsule by [facility] of capsule 00:00: mouth 3 (three) Medical times Branch daily. busPIRone 2021-0 Yes [id number] 20mg Take 2 [facility] [place] 10 mg 4-29 tablets by [facility] of tablet 00:00: mouth (two) Medical times Branch daily. citalopram 2021-0 Yes [id number] 40mg Take 1 [facility] 40 mg 4-29 tablet by [facility] of tablet 00:00: mouth daily. [facility] pregabalin 2021-0 Yes [id number] 150mg Take 1 [facility] 150 mg 4-29 capsule by [facility] of capsule 00:00: mouth (three) Medical times Branch daily. busPIRone 2021-0 Yes [id number] 20mg Take 2 [facility] [place] 10 mg 4-29 tablets by [facility] of tablet 00:00: mouth (two) Medical times Branch daily. citalopram 2021-0 Yes [id number] 40mg Take 1 [facility] 40 mg 4-29 tablet by [facility] of tablet 00:00: mouth daily. [facility] pregabalin 2021-0 Yes [id number] 150mg Take 1 [facility] 150 mg 4-29 capsule by [facility] of capsule 00:00: mouth (three) [facility] times [facility] daily. busPIRone 2-0 Yes [id number] 20mg Take 2 [facility] [place] 10 mg 4-29 tablets by [facility] of tablet 00:00: mouth (two) [facility] times [facility] daily. citalopram 2-0 Yes [id number] 40mg Take 1 [facility] nivers 40 mg 4-29 tablet by ity of tablet 00:00: mouth 00 daily. [facility] pregabalin 2022-0 Yes [id number] 150mg Take 1 [facility] 150 mg 4-29 capsule by [facility] of capsule 00:00: mouth 3 (three) [facility] times [facility] daily. busPIRone 2021-0 Yes [id number] 20mg Take 2 [facility] [place] 10 mg 4-29 tablets by [facility] of tablet 00:00: mouth (two) [facility] times [facility] daily. citalopram 2021-0 Yes [id number] 40mg Take 1 [facility] nivers 40 mg 4-29 tablet by [facility]y of tablet 00:00: mouth daily. [facility] pregabalin 2021-0 Yes [id number] 150mg Take 1 [facility] 150 mg 4-29 capsule by [facility]y of capsule 00:00: mouth (three) [facility] times [facility] daily. busPIRone 2021-0 Yes [id number] 20mg Take 2 [facility] [place] 10 mg 4-29 tablets by [facility]y of tablet 00:00: mouth (two) [facility] times [facility] daily. citalopram 2021-0 Yes [id number] 40mg Take 1 [facility] 40 mg 4-29 tablet by [facility]y of tablet 00:00: mouth daily. [facility] pregabalin 2021-0 Yes [id number] 150mg Take 1 [facility] 150 mg 4-29 capsule by [facility]y of capsule 00:00: mouth (three) [facility] times [facility] daily. busPIRone 2021-0 Yes [id number] 20mg Take 2 [facility] [place] 10 mg 4-29 tablets by [facility]y of tablet 00:00: mouth (two) [facility] times [facility] daily. citalopram 2021-0 Yes [id number] 40mg Take 1 [facility] n[facility] 40 mg 4-29 tablet by [facility]y of tablet 00:00: mouth daily. [facility] pregabalin 2021-0 Yes [id number] 150mg Take 1 [facility] 150 mg 4-29 capsule by [facility]y of capsule 00:00: mouth 3 (three) Medical times [facility] daily. busPIRone 2021-0 Yes [id number] 20mg Take 2 [facility] [place] 10 mg 4-29 tablets by [facility]y of tablet 00:00: mouth (two) [facility] times [facility] daily. citalopram 2022-0 Yes [id number] 40mg Take 1 [facility] nivers 40 mg 4-29 tablet by [facility]y of tablet 00:00: mouth [place] 00 daily. [facility] pregabalin 2021- No [id number] 150mg Take 1 [facility] 150 mg 4-29 10-13 capsule by ity of capsule 00:00: 00:00 mouth 3 [place] 00 :00 (three) Medical times [facility] daily. busPIRone 2021- No [id number] 20mg Take 2 [facility] nivers 10 mg 4-29 10-13 tablets by ity of tablet 00:00: 00:00 mouth 2 [place] 00 :00 (two) Medical times [facility] daily. pantoprazol Yes [id number] 40mg Take 1 [facility] e 40 mg EC 4-04 tablet by ity of tablet 00:00: mouth [place] 00 daily. [facility] pantoprazol Yes [id number] 40mg Take 1 [facility] e 40 mg EC 4-04 tablet by ity of tablet 00:00: mouth [place] 00 daily. [facility] pantoprazol Yes [id number] 40mg Take 1 [facility] e 40 mg EC 4-04 tablet by ity of tablet 00:00: mouth [place] 00 daily. [facility] pantoprazol Yes [id number] 40mg Take 1 [facility] e 40 mg EC 4-04 tablet by ity of tablet 00:00: mouth [place] 00 daily. [facility] pantoprazol Yes [id number] 40mg Take 1 [facility] e 40 mg EC 4-04 tablet by ity of tablet 00:00: mouth [place] 00 daily. [facility] pantoprazol Yes [id number] 40mg Take 1 [facility] e 40 mg EC 4-04 tablet by ity of tablet 00:00: mouth [place] 00 daily. [facility] pantoprazol Yes [id number] 40mg Take 1 [facility] e 40 mg EC 4-04 tablet by ity of tablet 00:00: mouth [place] 00 daily. [facility] pantoprazol Yes [id number] 40mg Take 1 [facility] e 40 mg EC 4-04 tablet by ity of tablet 00:00: mouth [place] 00 daily. [facility] pantoprazol Yes [id number] 40mg Take 1 [facility] e 40 mg EC 4-04 tablet by ity of tablet 00:00: mouth [place] 00 daily. [facility] pantoprazol 2021-0 Yes [id number] 40mg Take 1 [facility] e 40 mg EC 4-04 tablet by ity of tablet 00:00: mouth [place] 00 daily. [facility] pantoprazol 2021-0 Yes [id number] 40mg Take 1 [facility] e 40 mg EC 4-04 tablet by ity of tablet 00:00: mouth [place] 00 daily. [facility] pantoprazol 2021-0 Yes [id number] 40mg Take 1 [facility] e 40 mg EC 4-04 tablet by ity of tablet 00:00: mouth [place] 00 daily. [facility] pantoprazol 2021-0 Yes [id number] 40mg Take 1 [facility] e 40 mg EC 4-04 tablet by ity of tablet 00:00: mouth [place] 00 daily. [facility] pantoprazol 2021-0 Yes [id number] 40mg Take 1 [facility] e 40 mg EC 4-04 tablet by ity of tablet 00:00: mouth [place] 00 daily. [facility] pantoprazol 2021-0 Yes [id number] 40mg Take 1 [facility] e 40 mg EC 4-04 tablet by ity of tablet 00:00: mouth [place] 00 daily. [facility] pantoprazol 2021-0 Yes [id number] 40mg Take 1 [facility] e 40 mg EC 4-04 tablet by ity of tablet 00:00: mouth [place] 00 daily. [facility] pantoprazol 2021-0 Yes [id number] 40mg Take 1 [facility] e 40 mg EC 4-04 tablet by ity of tablet 00:00: mouth [place] 00 daily. [facility] pantoprazol 2021-0 Yes [id number] 40mg Take 1 [facility] e 40 mg EC 4-04 tablet by ity of tablet 00:00: mouth [place] 00 daily. [facility] pantoprazol 2021-0 Yes [id number] 40mg Take 1 [facility] e 40 mg EC 4-04 tablet by ity of tablet 00:00: mouth [place] 00 daily. [facility] pantoprazol 2021-0 Yes [id number] 40mg Take 1 [facility] e 40 mg EC 4-04 tablet by ity of tablet 00:00: mouth [place] 00 daily. [facility] pantoprazol 2021-0 Yes [id number] 40mg Take 1 [facility] e 40 mg EC 4-04 tablet by ity of tablet 00:00: mouth [place] 00 daily. [facility] pantoprazol Yes [id number] 40mg Take 1 [facility] e 40 mg EC 4-04 tablet by ity of tablet 00:00: mouth [place] 00 daily. [facility] pantoprazol Yes [id number] 40mg Take 1 [facility] e 40 mg EC 4-04 tablet by ity of tablet 00:00: mouth [place] 00 daily. [facility] pantoprazol Yes [id number] 40mg Take 1 [facility] e 40 mg EC 4-04 tablet by ity of tablet 00:00: mouth [place] 00 daily. [facility] pantoprazol Yes [id number] 40mg Take 1 [facility] e 40 mg EC 4-04 tablet by ity of tablet 00:00: mouth [place] 00 daily. [facility] pantoprazol Yes [id number] 40mg Take 1 [facility] e 40 mg EC 4-04 tablet by ity of tablet 00:00: mouth [place] 00 daily. [facility] pantoprazol Yes [id number] 40mg Take 1 [facility] e 40 mg EC 4-04 tablet by ity of tablet 00:00: mouth [place] 00 daily. [facility] pantoprazol Yes [id number] 40mg Take 1 [facility] e 40 mg EC 4-04 tablet by ity of tablet 00:00: mouth [place] 00 daily. [facility] pantoprazol Yes [id number] 40mg Take 1 [facility] e 40 mg EC 4-04 tablet by ity of tablet 00:00: mouth [place] 00 daily. Medical [facility] pantoprazol Yes [id number] 40mg Take 1 [facility] e 40 mg EC 4-04 tablet by ity of tablet 00:00: mouth [place] 00 daily. Medical [facility] pantoprazol 2021- No [id number] 40mg Take 1 [facility] e 40 mg EC 4-04 -16 tablet by ity of tablet 00:00: 00:00 mouth [place] 00 :00 daily. [facility] pantoprazol 2021- No [id number] 40mg Take 1 [facility] e 40 mg EC 4-04 -16 tablet by ity of tablet 00:00: 00:00 mouth [place] 00 :00 daily. [facility] Blood-Gluco Yes [id number] Use twice [facility] se Meter 3-08 a day for ity of (ONETOUCH 00:00: ICD [place] VERIO FLEX Medical START) Kit [facility] Blood-Gluco 2022-0 Yes [id number] Use twice [facility] se Meter 3-08 a day for ity of (ONETOUCH 00:00: ICD [place] VERIO FLEX [facility] START) Kit [facility] Blood-Gluco 2022-0 Yes [id number] Use twice [facility] se M[facility] 3-08 a day for ity of (ONETOUCH 00:00: [place] VERIO FLEX Medical START) Kit [facility] Blood-Gluco 2022-0 Yes [id number] Use twice [facility] se Meter 3-08 a day for ity of (ONETOUCH 00:00: ICD [place] VERIO FLEX Medical START) Kit [facility] Blood-Gluco 2022-0 Yes [id number] Use twice [facility] se [place] 3-08 a day for ity of (ONETOUCH 00:00: [place] VERIO FLEX Medical START) Kit [facility] Blood-Gluco 2022-0 Yes [id number] Use twice [facility] se M[place] 3-08 a day for ity of (ONETOUCH 00:00: [place] VERIO FLEX Medical START) Kit [facility] Blood-Gluco 2022-0 Yes [id number] Use twice [facility] se M[place] 3-08 a day for ity of (ONETOUCH 00:00: [place] VERIO FLEX Medical START) Kit [facility] Blood-Gluco 2022-0 Yes [id number] Use twice [facility] se [facility] 3-08 a day for ity of (ONETOUCH 00:00: ICD [place] VERIO FLEX Medical START) Kit [facility] Blood-Gluco 2022-0 Yes [id number] Use twice [facility] se M[facility] 3-08 a day for ity of (ONETOUCH 00:00: ICD CODE [place] VERIO FLEX Medical START) Kit [facility] Blood-Gluco 2022-0 Yes [id number] Use twice [facility] se M[facility] 3-08 a day for ity of (ONETOUCH 00:00: ICD CODE [place] VERIO FLEX Medical START) Kit [facility] Blood-Gluco 2022-0 Yes [id number] Use twice [facility] se Meter 3-08 a day for ity of (ONETOUCH 00:00: ICD CODE [place] VERIO FLEX E11.65 Medical START) Kit Branch Blood-Gluco 2022-0 Yes [id number] Use twice [facility] se Meter 3-08 a day for ity of (ONETOUCH 00:00: ICD CODE [place] VERIO FLEX E11. Medical START) Kit Branch Blood-Gluco 2022-0 Yes [id number] Use twice [facility] se M[facility] 3-08 a day for ity of (ONETOUCH 00:00: ICD CODE [place] VERIO FLEX E11. Medical START) Kit Branch Blood-Gluco 2022-0 Yes [id number] Use twice [facility] se M[facility] 3-08 a day for ity of (ONETOUCH 00:00: ICD CODE [place] VERIO FLEX E11.65 Medical START) Kit Branch Blood-Gluco 2022-0 Yes [id number] Use twice [facility] se M[facility] 3-08 a day for ity of (ONETOUCH 00:00: ICD [place] VERIO FLEX Medical START) Kit Branch Blood-Gluco 2022-0 Yes [id number] Use twice [facility] se Meter 3-08 a day for ity of (ONETOUCH 00:00: ICD CODE [place] VERIO FLEX E11.65 Medical START) Kit Branch Blood-Gluco 2022-0 Yes [id number] Use twice [facility] se Meter 3-08 a day for ity of (ONETOUCH 00:00: ICD CODE [place] VERIO FLEX E11.65 Medical START) Kit Branch Blood-Gluco 2022-0 Yes [id number] Use twice [facility] se Meter 3-08 a day for ity of (ONETOUCH 00:00: ICD CODE [place] VERIO FLEX E11.65 Medical START) Kit Branch Blood-Gluco 2022-0 Yes [id number] Use twice [facility] se Meter 3-08 a day for ity of (ONETOUCH 00:00: ICD CODE [place] VERIO FLEX E11.65 Medical START) Kit Branch Blood-Gluco 2022-0 Yes [id number] Use twice [facility] se Meter 3-08 a day for ity of (ONETOUCH 00:00: ICD CODE [place] VERIO FLEX Medical START) Kit Branch Blood-Gluco 2022-0 Yes [id number] Use twice [facility] se Meter 3-08 a day for ity of (ONETOUCH 00:00: ICD CODE [place] VERIO FLEX Medical START) Kit [facility] Blood-Gluco 2022-0 Yes [id number] Use twice [facility] se M[facility] 3-08 a day for ity of (ONETOUCH 00:00: ICD CODE [place] VERIO FLEX Medical START) Kit [facility] Blood-Gluco 2022-0 Yes [id number] Use twice [facility] se M[facility] 3-08 a day for ity of (ONETOUCH 00:00: ICD CODE [place] VERIO FLEX Medical START) Kit Branch Blood-Gluco 2022-0 Yes [id number] Use twice [facility] se Meter 3-08 a day for ity of (ONETOUCH 00:00: ICD CODE [place] VERIO FLEX Medical START) Kit Branch Blood-Gluco 2022-0 Yes [id number] Use twice [facility] se M[facility] 3-08 a day for ity of (ONETOUCH 00:00: ICD CODE [place] VERIO FLEX Medical START) Kit Branch Blood-Gluco 2022-0 Yes [id number] Use twice [facility] se Meter 3-08 a day for ity of (ONETOUCH 00:00: ICD CODE [place] VERIO FLEX Medical START) Kit Branch Blood-Gluco 2022-0 Yes [id number] Use twice [facility] se Meter 3-08 a day for ity of (ONETOUCH 00:00: ICD CODE [place] VERIO FLEX Medical START) Kit Branch Blood-Gluco 2022-0 Yes [id number] Use twice [facility] se Meter 3-08 a day for ity of (ONETOUCH 00:00: ICD CODE [place] VERIO FLEX Medical START) Kit Branch Blood-Gluco 2022-0 Yes [id number] Use twice [facility] se Meter 3-08 a day for ity of (ONETOUCH 00:00: ICD CODE [place] VERIO FLEX Medical START) Kit Branch Blood-Gluco 2022-0 Yes [id number] Use twice [facility] se Meter 3-08 a day for ity of (ONETOUCH 00:00: ICD CODE [place] VERIO FLEX E11.65 Medical START) Kit Branch Blood-Gluco 2022-0 Yes [id number] Use twice [facility] se Meter 3-08 a day for ity of (ONETOUCH 00:00: ICD CODE [place] VERIO FLEX E11.65 Medical START) Kit Branch Blood-Gluco 2022-0 Yes [id number] Use twice [facility] se Meter 3-08 a day for ity of (ONETOUCH 00:00: ICD CODE [place] VERIO FLEX E11.65 Medical START) Kit Branch Blood-Gluco 2022-0 Yes [id number] Use twice [facility] se Meter 3-08 a day for ity of (ONETOUCH 00:00: ICD CODE [place] VERIO FLEX E11.65 Medical START) Kit Branch Blood-Gluco 2022-0 Yes [id number] Use twice [facility] se Meter 3-08 a day for ity of (ONETOUCH 00:00: ICD CODE [place] VERIO FLEX E11.65 Medical START) Kit Branch Blood-Gluco 2022-0 Yes [id number] Use twice [facility] se Meter 3-08 a day for ity of (ONETOUCH 00:00: ICD CODE [place] VERIO FLEX E11.65 Medical START) Kit Branch Blood-Gluco 2022-0 Yes [id number] Use twice [facility] se Meter 3-08 a day for ity of (ONETOUCH 00:00: ICD CODE [place] VERIO FLEX E11.65 Medical START) Kit Branch Blood-Gluco 2022-0 2- No [id number] Use twice [facility] se Meter 3-08 -22 a day for ity o f (ONETOUCH 00:00: 00:00 ICD CODE [place] VERIO FLEX 00 :00 E11.65 Medical START) Kit Branch Blood-Gluco 2022-0 2- No [id number] Use twice [facility] se Meter 3-08 -22 a day for ity o f (ONETOUCH 00:00: 00:00 ICD CODE [place] VERIO FLEX 00 :00 E11.65 Medical START) Kit Branch Blood-Gluco 2022-0 2- No [id number] Use twice [facility] se Meter 3-08 - a day for ity o f (ONETOUCH 00:00: 00:00 ICD CODE [place] VERIO FLEX 00 :00 E11.[address] [facility] mirabegron Yes [id number] 50mg Take 1 Univers (MYRBETRIQ) 1-18 tablet by ity of 50 mg 00:00: mouth [place] tablet 00 daily. [facility] mirabegron 0 Yes [id number] 50mg Take 1 Univers (MYRBETRIQ) 1-18 tablet by ity of 50 mg 00:00: mouth [place] tablet 00 daily. [facility] mirabegron 2021-0 Yes [id number] 50mg Take 1 [facility] (MYRBETRIQ) 1-18 tablet by ity of 50 mg 00:00: mouth [place] tablet 00 daily. [facility] mirabegron 0 Yes [id number] 50mg Take 1 [facility] (MYRBETRIQ) 1-18 tablet by ity of 50 mg 00:00: mouth [place] tablet 00 daily. [facility] mirabegron 0 Yes [id number] 50mg Take 1 [facility] (MYRBETRIQ) 1-18 tablet by ity of 50 mg 00:00: mouth [place] tablet 00 daily. [facility] mirabegron 0 Yes [id number] 50mg Take 1 [facility] (MYRBETRIQ) 1-18 tablet by ity of 50 mg 00:00: mouth [place] tablet 00 daily. [facility] mirabegron 2021-0 Yes [id number] 50mg Take 1 [facility] (MYRBETRIQ) 1-18 tablet by ity of 50 mg 00:00: mouth [place] tablet 00 daily. [facility] mirabegron 0 Yes [id number] 50mg Take 1 [facility] (MYRBETRIQ) 1-18 tablet by ity of 50 mg 00:00: mouth [place] tablet 00 daily. [facility] mirabegron 2021-0 Yes [id number] 50mg Take 1 [facility] (MYRBETRIQ) 1-18 tablet by ity of 50 mg 00:00: mouth [place] tablet 00 daily. [facility] mirabegron 2021-0 Yes [id number] 50mg Take 1 [facility] (MYRBETRIQ) 1-18 tablet by ity of 50 mg 00:00: mouth [place] tablet 00 daily. [facility] mirabegron 0 Yes [id number] 50mg Take 1 [facility] (MYRBETRIQ) 1-18 tablet by ity of 50 mg 00:00: mouth [place] tablet 00 daily. [facility] mirabegron 0 Yes [id number] 50mg Take 1 [facility] (MYRBETRIQ) 1-18 tablet by ity of 50 mg 00:00: mouth [place] tablet 00 daily. [facility] mirabegron 0 Yes [id number] 50mg Take 1 [facility] (MYRBETRIQ) 1-18 tablet by ity of 50 mg 00:00: mouth [place] tablet 00 daily. [facility] mirabegron 0 Yes [id number] 50mg Take 1 [facility] (MYRBETRIQ) 1-18 tablet by ity of 50 mg 00:00: mouth [place] tablet 00 daily. [facility] mirabegron 0 Yes [id number] 50mg Take 1 [facility] (MYRBETRIQ) 1-18 tablet by ity of 50 mg 00:00: mouth [place] tablet 00 daily. [facility] mirabegron 0 Yes [id number] 50mg Take 1 [facility] (MYRBETRIQ) 1-18 tablet by ity of 50 mg 00:00: mouth [place] tablet 00 daily. [facility] mirabegron 0 Yes [id number] 50mg Take 1 [facility] (MYRBETRIQ) 1-18 tablet by ity of 50 mg 00:00: mouth [place] tablet 00 daily. [facility] mirabegron 0 Yes [id number] 50mg Take 1 [facility] (MYRBETRIQ) 1-18 tablet by ity of 50 mg 00:00: mouth [place] tablet 00 daily. [facility] mirabegron 0 Yes [id number] 50mg Take 1 [facility] (MYRBETRIQ) 1-18 tablet by ity of 50 mg 00:00: mouth [place] tablet 00 daily. [facility] mirabegron 0 Yes [id number] 50mg Take 1 [facility] (MYRBETRIQ) 1-18 tablet by ity of 50 mg 00:00: mouth [place] tablet 00 daily. [facility] mirabegron 0 Yes [id number] 50mg Take 1 [facility] (MYRBETRIQ) 1-18 tablet by ity of 50 mg 00:00: mouth [place] tablet 00 daily. [facility] mirabegron 2021-0 Yes [id number] 50mg Take 1 [facility] (MYRBETRIQ) 1-18 tablet by ity of 50 mg 00:00: mouth [place] tablet 00 daily. [facility] mirabegron 2021-0 Yes [id number] 50mg Take 1 [facility] (MYRBETRIQ) 1-18 tablet by ity of 50 mg 00:00: mouth [place] tablet 00 daily. [facility] mirabegron 0 Yes [id number] 50mg Take 1 Univers (MYRBETRIQ) 1-18 tablet by ity of 50 mg 00:00: mouth [place] tablet 00 daily. [facility] mirabegron 0 Yes [id number] 50mg Take 1 [facility] (MYRBETRIQ) 1-18 tablet by ity of 50 mg 00:00: mouth [place] tablet 00 daily. [facility] mirabegron 2021-0 Yes [id number] 50mg Take 1 [facility] (MYRBETRIQ) 1-18 tablet by ity of 50 mg 00:00: mouth [place] tablet 00 daily. [facility] mirabegron 0 Yes [id number] 50mg Take 1 [facility] (MYRBETRIQ) 1-18 tablet by ity of 50 mg 00:00: mouth [place] tablet 00 daily. [facility] mirabegron 0 Yes [id number] 50mg Take 1 [facility] (MYRBETRIQ) 1-18 tablet by ity of 50 mg 00:00: mouth [place] tablet 00 daily. [facility] mirabegron 2021-0 Yes [id number] 50mg Take 1 [facility] (MYRBETRIQ) 1-18 tablet by ity of 50 mg 00:00: mouth [place] tablet 00 daily. [facility] mirabegron 0 Yes [id number] 50mg Take 1 [facility] (MYRBETRIQ) 1-18 tablet by ity of 50 mg 00:00: mouth [place] tablet 00 daily. [facility] mirabegron 2021-0 Yes [id number] 50mg Take 1 [facility] (MYRBETRIQ) 1-18 tablet by ity of 50 mg 00:00: mouth [place] tablet 00 daily. [facility] mirabegron 2021-0 Yes [id number] 50mg Take 1 [facility] (MYRBETRIQ) 1-18 tablet by ity of 50 mg 00:00: mouth [place] tablet 00 daily. [facility] mirabegron 2021-0 Yes [id number] 50mg Take 1 [facility] (MYRBETRIQ) 1-18 tablet by ity of 50 mg 00:00: mouth [place] tablet 00 daily. [facility] mirabegron 2021-0 Yes [id number] 50mg Take 1 [facility] (MYRBETRIQ) 1-18 tablet by ity of 50 mg 00:00: mouth [place] tablet 00 daily. [facility] mirabegron 0 Yes [id number] 50mg Take 1 [facility] (MYRBETRIQ) 1-18 tablet by ity of 50 mg 00:00: mouth [place] tablet 00 daily. [facility] mirabegron 2021-0 Yes [id number] 50mg Take 1 [facility] (MYRBETRIQ) 1-18 tablet by ity of 50 mg 00:00: mouth [place] tablet 00 daily. [facility] mirabegron 2021-0 Yes [id number] 50mg Take 1 [facility] (MYRBETRIQ) 1-18 tablet by ity of 50 mg 00:00: mouth [place] tablet 00 daily. [facility] mirabegron 0 Yes [id number] 50mg Take 1 [facility] (MYRBETRIQ) 1-18 tablet by ity of 50 mg 00:00: mouth [place] tablet 00 daily. [facility] mirabegron 0 Yes [id number] 50mg Take 1 [facility] (MYRBETRIQ) 1-18 tablet by ity of 50 mg 00:00: mouth [place] tablet 00 daily. [facility] mirabegron 2021-0 Yes [id number] 50mg Take 1 [facility] (MYRBETRIQ) 1-18 tablet by ity of 50 mg 00:00: mouth [place] tablet 00 daily. [facility] mirabegron 2021-0 Yes [id number] 50mg Take 1 [facility] (MYRBETRIQ) 1-18 tablet by ity of 50 mg 00:00: mouth [place] tablet 00 daily. [facility] mirabegron 2021-0 Yes [id number] 50mg Take 1 [facility] (MYRBETRIQ) 1-18 tablet by ity of 50 mg 00:00: mouth [place] tablet 00 daily. [facility] mirabegron 2021-0 Yes [id number] 50mg Take 1 [facility] (MYRBETRIQ) 1-18 tablet by ity of 50 mg 00:00: mouth [place] tablet 00 daily. [facility] mirabegron 0 Yes [id number] 50mg Take 1 [facility] (MYRBETRIQ) 1-18 tablet by ity of 50 mg 00:00: mouth [place] tablet 00 daily. [facility] mirabegron 2021-0 Yes [id number] 50mg Take 1 [facility] (MYRBETRIQ) 1-18 tablet by ity of 50 mg 00:00: mouth [place] tablet 00 daily. [facility] mirabegron 2021-0 Yes [id number] 50mg Take 1 [facility] (MYRBETRIQ) 1-18 tablet by ity of 50 mg 00:00: mouth [place] tablet 00 daily. [facility] mirabegron 0 Yes [id number] 50mg Take 1 [facility] (MYRBETRIQ) 1-18 tablet by ity of 50 mg 00:00: mouth [place] tablet 00 daily. [facility] mirabegron 0 Yes [id number] 50mg Take 1 [facility] (MYRBETRIQ) 1-18 tablet by ity of 50 mg 00:00: mouth [place] tablet 00 daily. [facility] mirabegron 2021- No [id number] 50mg Take 1 [facility] (MYRBETRIQ) 1-18 10-13 tablet by it y of 50 mg 00:00: 00:00 mouth [place] tablet 00 :00 daily. [facility] semaglutide 2020-09 Yes [id number] Inject Univers (OZEMPIC) 2-01 0.25 mg ity of 0.25 mg or 00:00: under the [place] 0.5 mg(2 00 skin Medical mg/1.5 mL) weekly. Branch PnIj semaglutide 2020-09 Yes [id number] Inject [facility] (OZEMPIC) 2-01 0.25 mg ity of 0.25 mg or 00:00: under the [place] 0.5 mg(2 00 skin Medical mg/1.5 mL) weekly. Branch PnIj semaglutide 2020-09 Yes [id number] Inject [facility] (OZEMPIC) 2-01 0.25 mg ity of 0.25 mg or 00:00: under the [place] 0.5 mg(2 00 skin Medical mg/1.5 mL) weekly. Branch PnIj semaglutide 2020-09 Yes [id number] Inject [facility] (OZEMPIC) 2-01 0.25 mg ity of 0.25 mg or 00:00: under the [place] 0.5 mg(2 00 skin Medical mg/1.5 mL) weekly. Branch PnIj semaglutide 2020-09 Yes [id number] Inject [facility] (OZEMPIC) 2-01 0.25 mg ity of 0.25 mg or 00:00: under the [place] 0.5 mg(2 00 skin Medical mg/1.5 mL) weekly. Branch PnIj semaglutide 2020-09 Yes [id number] Inject [facility] (OZEMPIC) 2-01 0.25 mg ity of 0.25 mg or 00:00: under the [place] 0.5 mg(2 00 skin Medical mg/1.5 mL) weekly. Branch PnIj semaglutide 2020-09 Yes [id number] Inject [facility] (OZEMPIC) 2-01 0.25 mg ity of 0.25 mg or 00:00: under the [place] 0.5 mg(2 00 skin Medical mg/1.5 mL) weekly. Branch PnIj semaglutide 2020-09 Yes [id number] Inject [facility] (OZEMPIC) 2-01 0.25 mg ity of 0.25 mg or 00:00: under the [place] 0.5 mg(2 00 skin Medical mg/1.5 mL) weekly. Branch PnIj semaglutide 2020-09 Yes [id number] Inject [facility] (OZEMPIC) 2-01 0.25 mg ity of 0.25 mg or 00:00: under the [place] 0.5 mg(2 00 skin Medical mg/1.5 mL) weekly. Branch PnIj semaglutide 2020-09 Yes [id number] Inject [facility] (OZEMPIC) 2-01 0.25 mg ity of 0.25 mg or 00:00: under the [place] 0.5 mg(2 00 skin Medical mg/1.5 mL) weekly. Branch PnIj semaglutide 2020-09 Yes [id number] Inject [facility] (OZEMPIC) 2-01 0.25 mg ity of 0.25 mg or 00:00: under the [place] 0.5 mg(2 00 skin Medical mg/1.5 mL) weekly. Branch PnIj semaglutide 2020-09 Yes [id number] Inject [facility] (OZEMPIC) 2-01 0.25 mg ity of 0.25 mg or 00:00: under the [place] 0.5 mg(2 00 skin Medical mg/1.5 mL) weekly. Branch PnIj semaglutide 2020-09 Yes [id number] Inject [facility] (OZEMPIC) 2-01 0.25 mg ity of 0.25 mg or 00:00: under the [place] 0.5 mg(2 00 skin Medical mg/1.5 mL) weekly. Branch PnIj semaglutide 2020-09 Yes [id number] Inject [facility] (OZEMPIC) 2-01 0.25 mg ity of 0.25 mg or 00:00: under the [place] 0.5 mg(2 00 skin Medical mg/1.5 mL) weekly. Branch PnIj semaglutide 2020-09 Yes [id number] Inject [facility] (OZEMPIC) 2-01 0.25 mg ity of 0.25 mg or 00:00: under the [place] 0.5 mg(2 00 skin Medical mg/1.5 mL) weekly. Branch PnIj semaglutide 2020-09 Yes [id number] Inject [facility] (OZEMPIC) 2-01 0.25 mg ity of 0.25 mg or 00:00: under the [place] 0.5 mg(2 00 skin Medical mg/1.5 mL) weekly. Branch PnIj semaglutide 2020-09 Yes [id number] Inject [facility] (OZEMPIC) 2-01 0.25 mg ity of 0.25 mg or 00:00: under the [place] 0.5 mg(2 00 skin Medical mg/1.5 mL) weekly. Branch PnIj semaglutide 2020-09 Yes [id number] Inject [facility] (OZEMPIC) 2-01 0.25 mg ity of 0.25 mg or 00:00: under the [place] 0.5 mg(2 00 skin Medical mg/1.5 mL) weekly. Branch PnIj semaglutide 2020-09 Yes [id number] Inject [facility] (OZEMPIC) 2-01 0.25 mg ity of 0.25 mg or 00:00: under the [place] 0.5 mg(2 00 skin Medical mg/1.5 mL) weekly. Branch PnIj semaglutide 2020-09 Yes [id number] Inject [facility] (OZEMPIC) 2-01 0.25 mg ity of 0.25 mg or 00:00: under the [place] 0.5 mg(2 00 skin Medical mg/1.5 mL) weekly. Branch PnIj semaglutide 2020-09 Yes [id number] Inject [facility] (OZEMPIC) 2-01 0.25 mg ity of 0.25 mg or 00:00: under the [place] 0.5 mg(2 00 skin Medical mg/1.5 mL) weekly. Branch PnIj semaglutide 2020-09 Yes [id number] Inject [facility] (OZEMPIC) 2-01 0.25 mg ity of 0.25 mg or 00:00: under the [place] 0.5 mg(2 00 skin Medical mg/1.5 mL) weekly. Branch PnIj semaglutide 2020-09 Yes [id number] Inject [facility] (OZEMPIC) 2-01 0.25 mg ity of 0.25 mg or 00:00: under the [place] 0.5 mg(2 00 skin Medical mg/1.5 mL) weekly. Branch PnIj semaglutide 2020-09 Yes [id number] Inject [facility] (OZEMPIC) 2-01 0.25 mg ity of 0.25 mg or 00:00: under the [place] 0.5 mg(2 00 skin Medical mg/1.5 mL) weekly. Branch PnIj semaglutide 2020-09 Yes [id number] Inject [facility] (OZEMPIC) 2-01 0.25 mg ity of 0.25 mg or 00:00: under the [place] 0.5 mg(2 00 skin Medical mg/1.5 mL) weekly. Branch PnIj semaglutide 2020-09 Yes [id number] Inject [facility] (OZEMPIC) 2-01 0.25 mg ity of 0.25 mg or 00:00: under the [place] 0.5 mg(2 00 skin Medical mg/1.5 mL) weekly. Branch PnIj semaglutide 2020-09 Yes [id number] Inject [facility] (OZEMPIC) 2-01 0.25 mg ity of 0.25 mg or 00:00: under the [place] 0.5 mg(2 00 skin Medical mg/1.5 mL) weekly. Branch PnIj semaglutide 2020-09 Yes [id number] Inject [facility] (OZEMPIC) 2-01 0.25 mg ity of 0.25 mg or 00:00: under the [place] 0.5 mg(2 00 skin Medical mg/1.5 mL) weekly. Branch PnIj semaglutide 2020-09 Yes [id number] Inject [facility] (OZEMPIC) 2-01 0.25 mg ity of 0.25 mg or 00:00: under the [place] 0.5 mg(2 00 skin Medical mg/1.5 mL) weekly. Branch PnIj semaglutide 2020-09 Yes [id number] Inject [facility] (OZEMPIC) 2-01 0.25 mg ity of 0.25 mg or 00:00: under the [place] 0.5 mg(2 00 skin Medical mg/1.5 mL) weekly. Branch PnIj semaglutide 2020-09 Yes [id number] Inject [facility] (OZEMPIC) 2-01 0.25 mg ity of 0.25 mg or 00:00: under the [place] 0.5 mg(2 00 skin Medical mg/1.5 mL) weekly. Branch PnIj semaglutide 2020-09 Yes [id number] Inject [facility] (OZEMPIC) 2-01 0.25 mg ity of 0.25 mg or 00:00: under the [place] 0.5 mg(2 00 skin Medical mg/1.5 mL) weekly. Branch PnIj semaglutide 2020-09 Yes [id number] Inject [facility] (OZEMPIC) 2-01 0.25 mg ity of 0.25 mg or 00:00: under the [place] 0.5 mg(2 00 skin Medical mg/1.5 mL) weekly. Branch PnIj semaglutide 2020-09 Yes [id number] Inject [facility] (OZEMPIC) 2-01 0.25 mg ity of 0.25 mg or 00:00: under the [place] 0.5 mg(2 00 skin Medical mg/1.5 mL) weekly. Branch PnIj semaglutide 2020-09 Yes [id number] Inject [facility] (OZEMPIC) 2-01 0.25 mg ity of 0.25 mg or 00:00: under the [place] 0.5 mg(2 00 skin Medical mg/1.5 mL) weekly. Branch PnIj semaglutide 2020-09 Yes [id number] Inject [facility] (OZEMPIC) 2-01 0.25 mg ity of 0.25 mg or 00:00: under the [place] 0.5 mg(2 00 skin Medical mg/1.5 mL) weekly. Branch PnIj semaglutide 2020-09 Yes [id number] Inject [facility] (OZEMPIC) 2-01 0.25 mg ity of 0.25 mg or 00:00: under the [place] 0.5 mg(2 00 skin Medical mg/1.5 mL) weekly. Branch PnIj semaglutide 2020-09 Yes [id number] Inject [facility] (OZEMPIC) 2-01 0.25 mg ity of 0.25 mg or 00:00: under the [place] 0.5 mg(2 00 skin Medical mg/1.5 mL) weekly. Branch PnIj semaglutide 2020-09 Yes [id number] Inject [facility] (OZEMPIC) 2-01 0.25 mg ity of 0.25 mg or 00:00: under the [place] 0.5 mg(2 00 skin Medical mg/1.5 mL) weekly. Branch PnIj semaglutide 2020-09 Yes [id number] Inject [facility] (OZEMPIC) 2-01 0.25 mg ity of 0.25 mg or 00:00: under the [place] 0.5 mg(2 00 skin Medical mg/1.5 mL) weekly. Branch PnIj semaglutide 2020-09 Yes [id number] Inject [facility] (OZEMPIC) 2-01 0.25 mg ity of 0.25 mg or 00:00: under the [place] 0.5 mg(2 00 skin Medical mg/1.5 mL) weekly. Branch PnIj semaglutide 2020-09 Yes [id number] Inject [facility] (OZEMPIC) 2-01 0.25 mg ity of 0.25 mg or 00:00: under the [place] 0.5 mg(2 00 skin Medical mg/1.5 mL) weekly. Branch PnIj semaglutide 2020-09 Yes [id number] Inject [facility] (OZEMPIC) 2-01 0.25 mg ity of 0.25 mg or 00:00: under the [place] 0.5 mg(2 00 skin Medical mg/1.5 mL) weekly. Branch RyIj semaglutide 2020-09 Yes [id number] Inject [facility] (OZEMPIC) 2-01 0.25 mg ity of 0.25 mg or 00:00: under the [place] 0.5 mg(2 00 skin Medical mg/1.5 mL) weekly. Branch Ij semaglutide 2020-09 Yes [id number] Inject [facility] (OZEMPIC) 2-01 0.25 mg ity of 0.25 mg or 00:00: under the [place] 0.5 mg(2 00 skin Medical mg/1.5 mL) weekly. Branch [place] semaglutide 2020-09 Yes [id number] Inject [facility] (OZEMPIC) 2-01 0.25 mg ity of 0.25 mg or 00:00: under the [place] 0.5 mg(2 00 skin Medical mg/1.5 mL) weekly. Branch [place] semaglutide 2020-09 Yes [id number] Inject [facility] (OZEMPIC) 2-01 0.25 mg ity of 0.25 mg or 00:00: under the [place] 0.5 mg(2 00 skin Medical mg/1.5 mL) weekly. Branch [place] semaglutide 2020-09 Yes [id number] Inject [facility] (OZEMPIC) 2-01 0.25 mg ity of 0.25 mg or 00:00: under the [place] 0.5 mg(2 00 skin Medical mg/1.5 mL) weekly. Branch Ij semaglutide 2020-09- No [id number] Inject [facility] (OZEMPIC) 2- 10-13 0.25 mg ity of 0.25 mg or 00:00: 00:00 under the [place] 0.5 mg(2 00 :00 skin Medical mg/1.5 mL) weekly. Branch [place] metformin 2020-09- No [id number] 500mg Take 1 [facility] ER 500 mg 10-27 tablet by ity of 24 hr 00:00: 00:00 mouth [place] tablet 00 :00 daily with Medical breakfast. Branch STOP REGULAR METFORMIN. metformin 2020-09- No [id number] 500mg Take 1 [facility] ER 500 mg 10-27 tablet by ity of 24 hr 00:00: 00:00 mouth [place] tablet 00 :00 daily with Medical breakfast. Branch STOP REGULAR METFORMIN. cyanocobala 2020-09 Yes [id number] 1000ug 1 mL by [facility] min 1,000 -09 Intramuscu ity of mcg/mL 00:00: lar route [place] injection 00 every 2 Medical (two) Branch weeks. levothyroxi 2020-09 Yes [id number] 50ug Take 1 [facility] ne 50 mcg -09 tablet by ity o f tablet 00:00: mouth [place] 00 every Medical morning. Branch fluticasone 2020-09 Yes [id number] 2{puff} Inhale 2 [facility] propionate 1-09 Puffs ity of (FLOVENT 00:00: every 12 [place] HFA) 110 00 (twelve) Medical mcg/actuati hours. Branch on inhaler Rinse mouth after each use. levalbutero 2020-09 Yes [id number] .63mg Inhale [facility] l 0.63 mg/3 -09 0.63 mg 3 ity of mL 00:00: (three) [place] nebulizer 00 times Medical solution daily as Branch needed for Wheezing or Shortness of Breath. losartan 50 2020-09 Yes [id number] 50mg Take 1 [facility] mg tablet -09 tablet by ity o f 00:00: mouth 2 [place] 00 (two) Medical times Branch daily. clotrimazol 2020-09 Yes [id number] Apply to [facility] e-betametha - area(s) 2 ity of sone cream 00:00: (two) [place] 00 times Medical daily. Branch cyclobenzap 2020-09 Yes [id number] TAKE 1 [facility] rine 5 mg 1-09 TABLET BY ity o f tablet 00:00: MOUTH [place] 00 EVERY 8 Medical HOURS Branch NEEDED econazole 2020-09 Yes [id number] Apply to [facility] nitrate 1 % -09 area(s) 2 ity of cream 00:00: (two) [place] 00 times Medical daily. Branch albuterol 2020-09 Yes [id number] 2{puff} Inhale 2 [facility] (PROAIR 1-09 Puffs ity of HFA) 90 00:00: every 6 [place] mcg/actuati 00 (six) Medical on inhaler hours as Branc h needed for Wheezing or Shortness of Breath. triamcinolo 2020-09 Yes [id number] Apply to [facility] ne 0.025 % 1-09 area(s) 3 ity of ointment 00:00: (three) [place] 00 times Medical daily. For Branch itching diltiazem 2020-09 Yes [id number] 120mg Take 1 [facility] (CARTIA XT) -09 capsule by it y of 120 mg 24 00:00: mouth 2 [place] hr capsule 00 (two) Medical times Branch daily. cyanocobala 2020-09 Yes [id number] 1000ug 1 mL by [facility] min 1,000 1-09 Intramuscu ity of mcg/mL 00:00: lar route [place] injection 00 every 2 Medical (two) Branch weeks. levothyroxi 2020-09 Yes [id number] 50ug Take 1 [facility] ne 50 mcg -09 tablet by ity o f tablet 00:00: mouth [place] 00 every Medical morning. Branch fluticasone 2020-09 Yes [id number] 2{puff} Inhale 2 [facility] propionate 1-09 Puffs ity of (FLOVENT 00:00: every 12 [place] HFA) 110 00 (twelve) Medical mcg/actuati hours. Branch on inhaler Rinse mouth after each use. levalbutero 2020-09 Yes [id number] .63mg Inhale [facility] l 0.63 mg/3 1-09 0.63 mg 3 ity of mL 00:00: (three) [place] nebulizer 00 times Medical solution daily as Branch needed for Wheezing or Shortness of Breath. losartan 50 2020-09 Yes [id number] 50mg Take 1 [facility] mg tablet -09 tablet by ity o f 00:00: mouth 2 [place] 00 (two) Medical times Branch daily. clotrimazol 2020-09 Yes [id number] Apply to [facility] e-betametha -09 area(s) 2 ity of sone cream 00:00: (two) [place] 00 times Medical daily. Branch cyclobenzap 2020-09 Yes [id number] TAKE 1 [facility] rine 5 mg 1-09 TABLET BY ity o f tablet 00:00: MOUTH [place] 00 EVERY 8 Medical HOURS Branch NEEDED econazole 2020-09 Yes [id number] Apply to [facility] nitrate 1 % -09 area(s) 2 ity of cream 00:00: (two) [place] 00 times Medical daily. Branch albuterol 2020-09 Yes [id number] 2{puff} Inhale 2 [facility] (PROAIR 1-09 Puffs ity of HFA) 90 00:00: every 6 [place] mcg/actuati 00 (six) Medical on inhaler hours as Branc h needed for Wheezing or Shortness of Breath. triamcinolo 2020-09 Yes [id number] Apply to [facility] ne 0.025 % -09 area(s) 3 ity of ointment 00:00: (three) [place] 00 times Medical daily. For Branch itching diltiazem 2020-09 Yes [id number] 120mg Take 1 [facility] n[facility] (CARTIA XT) 10-04 capsule by it y of 120 mg 24 00:00: mouth 2 [place] hr capsule 00 (two) Medical times Branch daily. cyanocobala 2020-09 Yes [id number] 1000ug 1 mL by [facility] min 1,000 1-09 Intramuscu ity of mcg/mL 00:00: lar route [place] injection 00 every 2 Medical (two) Branch weeks. levothyroxi 2020-09 Yes [id number] 50ug Take 1 [facility] ne 50 mcg -09 tablet by ity o f tablet 00:00: mouth [place] 00 every Medical morning. Branch fluticasone 2020-09 Yes [id number] 2{puff} Inhale 2 [facility] propionate 1-09 Puffs ity of (FLOVENT 00:00: every 12 [place] HFA) 110 00 (twelve) Medical mcg/actuati hours. Branch on inhaler Rinse mouth after each use. levalbutero 2020-09 Yes [id number] .63mg Inhale [facility] l 0.63 mg/3 1-09 0.63 mg 3 ity of mL 00:00: (three) [place] nebulizer 00 times Medical solution daily as Branch needed for Wheezing or Shortness of Breath. losartan 50 2020-09 Yes [id number] 50mg Take 1 [facility] mg tablet 1-09 tablet by ity o f 00:00: mouth 2 [place] 00 (two) Medical times Branch daily. clotrimazol 2020-09 Yes [id number] Apply to [facility] e-betametha 09 area(s) 2 ity of sone cream 00:00: (two) [place] 00 times Medical daily. Branch cyclobenzap 2020-09 Yes [id number] TAKE 1 [facility] rine 5 mg -09 TABLET BY ity o f tablet 00:00: MOUTH [place] 00 EVERY 8 Medical HOURS Branch NEEDED econazole 2020-09 Yes [id number] Apply to [facility] nitrate 1 % 09 area(s) 2 ity of cream 00:00: (two) [place] 00 times Medical daily. Branch albuterol 2020-09 Yes [id number] 2{puff} Inhale 2 [facility] (PROAIR 1-09 Puffs ity of HFA) 90 00:00: every 6 [place] mcg/actuati 00 (six) Medical on inhaler hours as Branc h needed for Wheezing or Shortness of Breath. triamcinolo 2020-09 Yes [id number] Apply to [facility] ne 0.025 % 10-04 area(s) 3 ity of ointment 00:00: (three) [place] 00 times Medical daily. For Branch itching diltiazem 2020-09 Yes [id number] 120mg Take 1 [facility] nivers (CARTIA XT) 09 capsule by it y of 120 mg 24 00:00: mouth 2 [place] hr capsule 00 (two) Medical times Branch daily. cyanocobala 2020-09 Yes [id number] 1000ug 1 mL by [facility] min 1,000 1-09 Intramuscu ity of mcg/mL 00:00: lar route [place] injection 00 every 2 Medical (two) Branch weeks. levothyroxi 2020-09 Yes [id number] 50ug Take 1 [facility] ne 50 mcg -09 tablet by ity o f tablet 00:00: mouth [place] 00 every Medical morning. Branch fluticasone 2020-09 Yes [id number] 2{puff} Inhale 2 [facility] propionate 1-09 Puffs ity of (FLOVENT 00:00: every 12 [place] HFA) 110 00 (twelve) Medical mcg/actuati hours. Branch on inhaler Rinse mouth after each use. levalbutero 2020-09 Yes [id number] .63mg Inhale [facility] l 0.63 mg/3 1-09 0.63 mg 3 ity of mL 00:00: (three) [place] nebulizer 00 times Medical solution daily as Branch needed for Wheezing or Shortness of Breath. losartan 50 2020-09 Yes [id number] 50mg Take 1 [facility] mg tablet 1-09 tablet by ity o f 00:00: mouth 2 [place] 00 (two) Medical times Branch daily. clotrimazol 2020-09 Yes [id number] Apply to [facility] e-betametha -09 area(s) 2 ity of sone cream 00:00: (two) [place] 00 times Medical daily. Branch cyclobenzap 2020-09 Yes [id number] TAKE 1 [facility] rine 5 mg -09 TABLET BY ity o f tablet 00:00: MOUTH [place] 00 EVERY 8 Medical HOURS Branch NEEDED econazole 2020-09 Yes [id number] Apply to [facility] nitrate 1 % 10-04 area(s) 2 ity of cream 00:00: (two) [place] 00 times Medical daily. Branch albuterol 2020-09 Yes [id number] 2{puff} Inhale 2 [facility] (PROAIR 1-09 Puffs ity of HFA) 90 00:00: every 6 [place] mcg/actuati 00 (six) Medical on inhaler hours as Branc h needed for Wheezing or Shortness of Breath. triamcinolo 2020-09 Yes [id number] Apply to [facility] ne 0.025 % 10-04 area(s) 3 ity of ointment 00:00: (three) [place] 00 times Medical daily. For Branch itching diltiazem 2020-09 Yes [id number] 120mg Take 1 [facility] n[facility] (CARTIA XT) -09 capsule by it y of 120 mg 24 00:00: mouth 2 [place] hr capsule 00 (two) Medical times Branch daily. cyanocobala 2020-09 Yes [id number] 1000ug 1 mL by [facility] min 1,000 1-09 Intramuscu ity of mcg/mL 00:00: lar route [place] injection 00 every 2 Medical (two) Branch weeks. levothyroxi 2020-09 Yes [id number] 50ug Take 1 [facility] ne 50 mcg 1-09 tablet by ity o f tablet 00:00: mouth [place] 00 every Medical morning. Branch fluticasone 2020-09 Yes [id number] 2{puff} Inhale 2 [facility] propionate 1-09 Puffs ity of (FLOVENT 00:00: every 12 [place] HFA) 110 00 (twelve) Medical mcg/actuati hours. Branch on inhaler Rinse mouth after each use. levalbutero 2020-09 Yes [id number] .63mg Inhale [facility] l 0.63 mg/3 1-09 0.63 mg 3 ity of mL 00:00: (three) [place] nebulizer 00 times Medical solution daily as Branch needed for Wheezing or Shortness of Breath. clotrimazol 2020-09 Yes [id number] Apply to [facility] e-betametha -09 area(s) 2 ity of sone cream 00:00: (two) [place] 00 times Medical daily. Branch cyclobenzap 2020-09 Yes [id number] TAKE 1 [facility] rine 5 mg -09 TABLET BY ity o f tablet 00:00: MOUTH [place] 00 EVERY 8 Medical HOURS Branch NEEDED econazole 2020-09 Yes [id number] Apply to [facility] nitrate 1 % 10-04 area(s) 2 ity of cream 00:00: (two) [place] 00 times Medical daily. Branch albuterol 2020-09 Yes [id number] 2{puff} Inhale 2 [facility] (PROAIR 1-09 Puffs ity of HFA) 90 00:00: every 6 [place] mcg/actuati 00 (six) Medical on inhaler hours as Branc h needed for Wheezing or Shortness of Breath. triamcinolo 2020-09 Yes [id number] Apply to [facility] ne 0.025 % 09 area(s) 3 ity of ointment 00:00: (three) [place] 00 times Medical daily. For Branch itching cyanocobala 2020-09 Yes [id number] 1000ug 1 mL by [facility] min 1,000 -09 Intramuscu ity of mcg/mL 00:00: lar route [place] injection 00 every 2 Medical (two) Branch weeks. levothyroxi 2020-09 Yes [id number] 50ug Take 1 [facility] ne 50 mcg 1-09 tablet by ity o f tablet 00:00: mouth [place] 00 every Medical morning. Branch fluticasone 2020-09 Yes [id number] 2{puff} Inhale 2 [facility] propionate 1-09 Puffs ity of (FLOVENT 00:00: every 12 [place] HFA) 110 00 (twelve) Medical mcg/actuati hours. Branch on inhaler Rinse mouth after each use. levalbutero 2020-09 Yes [id number] .63mg Inhale [facility] l 0.63 mg/3 1-09 0.63 mg 3 ity of mL 00:00: (three) [place] nebulizer 00 times Medical solution daily as Branch needed for Wheezing or Shortness of Breath. clotrimazol 2020-09 Yes [id number] Apply to [facility] e-betametha 09 area(s) 2 ity of sone cream 00:00: (two) [place] 00 times Medical daily. Branch cyclobenzap 2020-09 Yes [id number] TAKE 1 [facility] rine 5 mg 09 TABLET BY ity o f tablet 00:00: MOUTH [place] 00 EVERY 8 Medical HOURS Branch NEEDED econazole 2020-09 Yes [id number] Apply to [facility] nitrate 1 % 09 area(s) 2 ity of cream 00:00: (two) [place] 00 times Medical daily. Branch albuterol 2020-09 Yes [id number] 2{puff} Inhale 2 [facility] (PROAIR 1-09 Puffs ity of HFA) 90 00:00: every 6 [place] mcg/actuati 00 (six) Medical on inhaler hours as Branc h needed for Wheezing or Shortness of Breath. triamcinolo 2020-09 Yes [id number] Apply to [facility] ne 0.025 % 10-04 area(s) 3 ity of ointment 00:00: (three) [place] 00 times Medical daily. For Branch itching cyanocobala 2020-09 Yes [id number] 1000ug 1 mL by [facility] min 1,000 -09 Intramuscu ity of mcg/mL 00:00: lar route [place] injection 00 every 2 Medical (two) Branch weeks. levothyroxi 2020-09 Yes [id number] 50ug Take 1 [facility] ne 50 mcg -09 tablet by ity o f tablet 00:00: mouth [place] 00 every Medical morning. Branch fluticasone 2020-09 Yes [id number] 2{puff} Inhale 2 [facility] propionate 1-09 Puffs ity of (FLOVENT 00:00: every 12 [place] HFA) 110 00 (twelve) Medical mcg/actuati hours. Branch on inhaler Rinse mouth after each use. levalbutero 2020-09 Yes [id number] .63mg Inhale [facility] l 0.63 mg/3 1-09 0.63 mg 3 ity of mL 00:00: (three) [place] nebulizer 00 times Medical solution daily as Branch needed for Wheezing or Shortness of Breath. clotrimazol 2020-09 Yes [id number] Apply to [facility] e-betametha -09 area(s) 2 ity of sone cream 00:00: (two) [place] 00 times Medical daily. Branch cyclobenzap 2020-09 Yes [id number] TAKE 1 [facility] rine 5 mg 1-09 TABLET BY ity o f tablet 00:00: MOUTH [place] 00 EVERY 8 Medical HOURS Branch NEEDED econazole 2020-09 Yes [id number] Apply to [facility] nitrate 1 % -09 area(s) 2 ity of cream 00:00: (two) [place] 00 times Medical daily. Branch albuterol 2020-09 Yes [id number] 2{puff} Inhale 2 [facility] (PROAIR 1-09 Puffs ity of HFA) 90 00:00: every 6 [place] mcg/actuati 00 (six) Medical on inhaler hours as Branc h needed for Wheezing or Shortness of Breath. triamcinolo 2020-09 Yes [id number] Apply to [facility] ne 0.025 % 09 area(s) 3 ity of ointment 00:00: (three) [place] 00 times Medical daily. For Branch itching cyanocobala 2020-09 Yes [id number] 1000ug 1 mL by [facility] min 1,000 1-09 Intramuscu ity of mcg/mL 00:00: lar route [place] injection 00 every 2 Medical (two) Branch weeks. levothyroxi 2020-09 Yes [id number] 50ug Take 1 [facility] ne 50 mcg 1-09 tablet by ity o f tablet 00:00: mouth [place] 00 every Medical morning. Branch fluticasone 2020-09 Yes [id number] 2{puff} Inhale 2 [facility] propionate 1-09 Puffs ity of (FLOVENT 00:00: every 12 [place] HFA) 110 00 (twelve) Medical mcg/actuati hours. Branch on inhaler Rinse mouth after each use. levalbutero 2020-09 Yes [id number] .63mg Inhale [facility] l 0.63 mg/3 1-09 0.63 mg 3 ity of mL 00:00: (three) [place] nebulizer 00 times Medical solution daily as Branch needed for Wheezing or Shortness of Breath. clotrimazol 2020-09 Yes [id number] Apply to [facility] e-betametha -09 area(s) 2 ity of sone cream 00:00: (two) [place] 00 times Medical daily. Branch cyclobenzap 2020-09 Yes [id number] TAKE 1 [facility] rine 5 mg -09 TABLET BY ity o f tablet 00:00: MOUTH [place] 00 EVERY 8 Medical HOURS Branch NEEDED econazole 2020-09 Yes [id number] Apply to [facility] nitrate 1 % 09 area(s) 2 ity of cream 00:00: (two) [place] 00 times Medical daily. Branch albuterol 2020-09 Yes [id number] 2{puff} Inhale 2 [facility] (PROAIR 1-09 Puffs ity of HFA) 90 00:00: every 6 [place] mcg/actuati 00 (six) Medical on inhaler hours as Branc h needed for Wheezing or Shortness of Breath. triamcinolo 2020-09 Yes [id number] Apply to [facility] ne 0.025 % 09 area(s) 3 ity of ointment 00:00: (three) [place] 00 times Medical daily. For Branch itching cyanocobala 2020-09 Yes [id number] 1000ug 1 mL by [facility] min 1,000 1-09 Intramuscu ity of mcg/mL 00:00: lar route [place] injection 00 every 2 Medical (two) Branch weeks. levothyroxi 2020-09 Yes [id number] 50ug Take 1 [facility] ne 50 mcg -09 tablet by ity o f tablet 00:00: mouth [place] 00 every Medical morning. Branch fluticasone 2020-09 Yes [id number] 2{puff} Inhale 2 [facility] propionate 1-09 Puffs ity of (FLOVENT 00:00: every 12 [place] HFA) 110 00 (twelve) Medical mcg/actuati hours. Branch on inhaler Rinse mouth after each use. levalbutero 2020-09 Yes [id number] .63mg Inhale [facility] l 0.63 mg/3 1-09 0.63 mg 3 ity of mL 00:00: (three) [place] nebulizer 00 times Medical solution daily as Branch needed for Wheezing or Shortness of Breath. clotrimazol 2020-09 Yes [id number] Apply to [facility] e-betametha 09 area(s) 2 ity of sone cream 00:00: (two) [place] 00 times Medical daily. Branch cyclobenzap 2020-09 Yes [id number] TAKE 1 [facility] rine 5 mg -09 TABLET BY ity o f tablet 00:00: MOUTH [place] 00 EVERY 8 Medical HOURS Branch NEEDED econazole 2020-09 Yes [id number] Apply to [facility] nitrate 1 % 09 area(s) 2 ity of cream 00:00: (two) [place] 00 times Medical daily. Branch albuterol 2020-09 Yes [id number] 2{puff} Inhale 2 [facility] (PROAIR 1-09 Puffs ity of HFA) 90 00:00: every 6 [place] mcg/actuati 00 (six) Medical on inhaler hours as Branc h needed for Wheezing or Shortness of Breath. triamcinolo 2020-09 Yes [id number] Apply to [facility] ne 0.025 % 09 area(s) 3 ity of ointment 00:00: (three) [place] 00 times Medical daily. For Branch itching cyanocobala 2020-09 Yes [id number] 1000ug 1 mL by [facility] min 1,000 1-09 Intramuscu ity of mcg/mL 00:00: lar route [place] injection 00 every 2 Medical (two) Branch weeks. levothyroxi 2020-09 Yes [id number] 50ug Take 1 [facility] ne 50 mcg 09 tablet by ity o f tablet 00:00: mouth [place] 00 every Medical morning. Branch fluticasone 2020-09 Yes [id number] 2{puff} Inhale 2 [facility] propionate 1-09 Puffs ity of (FLOVENT 00:00: every 12 [place] HFA) 110 00 (twelve) Medical mcg/actuati hours. Branch on inhaler Rinse mouth after each use. levalbutero 2020-09 Yes [id number] .63mg Inhale [facility] l 0.63 mg/3 1-09 0.63 mg 3 ity of mL 00:00: (three) [place] nebulizer 00 times Medical solution daily as Branch needed for Wheezing or Shortness of Breath. clotrimazol 2020-09 Yes [id number] Apply to [facility] e-betametha -09 area(s) 2 ity of sone cream 00:00: (two) [place] 00 times Medical daily. Branch cyclobenzap 2020-09 Yes [id number] TAKE 1 [facility] rine 5 mg 1-09 TABLET BY ity o f tablet 00:00: MOUTH [place] 00 EVERY 8 Medical HOURS Branch NEEDED econazole 2020-09 Yes [id number] Apply to [facility] nitrate 1 % -09 area(s) 2 ity of cream 00:00: (two) [place] 00 times Medical daily. Branch albuterol 2020-09 Yes [id number] 2{puff} Inhale 2 [facility] (PROAIR 1-09 Puffs ity of HFA) 90 00:00: every 6 [place] mcg/actuati 00 (six) Medical on inhaler hours as Branc h needed for Wheezing or Shortness of Breath. triamcinolo 2020-09 Yes [id number] Apply to [facility] ne 0.025 % -09 area(s) 3 ity of ointment 00:00: (three) [place] 00 times Medical daily. For Branch itching cyanocobala 2020-09 Yes [id number] 1000ug 1 mL by [facility] min 1,000 1-09 Intramuscu ity of mcg/mL 00:00: lar route [place] injection 00 every 2 Medical (two) Branch weeks. levothyroxi 2020-09 Yes [id number] 50ug Take 1 [facility] ne 50 mcg -09 tablet by ity o f tablet 00:00: mouth [place] 00 every Medical morning. Branch fluticasone 2020-09 Yes [id number] 2{puff} Inhale 2 [facility] propionate 1-09 Puffs ity of (FLOVENT 00:00: every 12 [place] HFA) 110 00 (twelve) Medical mcg/actuati hours. Branch on inhaler Rinse mouth after each use. levalbutero 2020-09 Yes [id number] .63mg Inhale [facility] l 0.63 mg/3 1-09 0.63 mg 3 ity of mL 00:00: (three) [place] nebulizer 00 times Medical solution daily as Branch needed for Wheezing or Shortness of Breath. clotrimazol 2020-09 Yes [id number] Apply to [facility] e-betametha -09 area(s) 2 ity of sone cream 00:00: (two) [place] 00 times Medical daily. Branch cyclobenzap 2020-09 Yes [id number] TAKE 1 [facility] rine 5 mg 1-09 TABLET BY ity o f tablet 00:00: MOUTH [place] 00 EVERY 8 Medical HOURS Branch NEEDED econazole 2020-09 Yes [id number] Apply to [facility] nitrate 1 % -09 area(s) 2 ity of cream 00:00: (two) [place] 00 times Medical daily. Branch albuterol 2020-09 Yes [id number] 2{puff} Inhale 2 [facility] (PROAIR 1-09 Puffs ity of HFA) 90 00:00: every 6 [place] mcg/actuati 00 (six) Medical on inhaler hours as Branc h needed for Wheezing or Shortness of Breath. triamcinolo 2020-09 Yes [id number] Apply to [facility] ne 0.025 % 10-04 area(s) 3 ity of ointment 00:00: (three) [place] 00 times Medical daily. For Branch itching cyanocobala 2020-09 Yes [id number] 1000ug 1 mL by [facility] min 1,000 1-09 Intramuscu ity of mcg/mL 00:00: lar route [place] injection 00 every 2 Medical (two) Branch weeks. levothyroxi 2020-09 Yes [id number] 50ug Take 1 [facility] ne 50 mcg -09 tablet by ity o f tablet 00:00: mouth [place] 00 every Medical morning. Branch fluticasone 2020-09 Yes [id number] 2{puff} Inhale 2 [facility] propionate 1-09 Puffs ity of (FLOVENT 00:00: every 12 [place] HFA) 110 00 (twelve) Medical mcg/actuati hours. Branch on inhaler Rinse mouth after each use. levalbutero 2020-09 Yes [id number] .63mg Inhale [facility] l 0.63 mg/3 1-09 0.63 mg 3 ity of mL 00:00: (three) [place] nebulizer 00 times Medical solution daily as Branch needed for Wheezing or Shortness of Breath. clotrimazol 2020-09 Yes [id number] Apply to [facility] e-betametha -09 area(s) 2 ity of sone cream 00:00: (two) [place] 00 times Medical daily. Branch cyclobenzap 2020-09 Yes [id number] TAKE 1 [facility] rine 5 mg 1-09 TABLET BY ity o f tablet 00:00: MOUTH [place] 00 EVERY 8 Medical HOURS Branch NEEDED econazole 2020-09 Yes [id number] Apply to [facility] nitrate 1 % -09 area(s) 2 ity of cream 00:00: (two) [place] 00 times Medical daily. Branch albuterol 2020-09 Yes [id number] 2{puff} Inhale 2 [facility] (PROAIR 1-09 Puffs ity of HFA) 90 00:00: every 6 [place] mcg/actuati 00 (six) Medical on inhaler hours as Branc h needed for Wheezing or Shortness of Breath. triamcinolo 2020-09 Yes [id number] Apply to [facility] ne 0.025 % 09 area(s) 3 ity of ointment 00:00: (three) [place] 00 times Medical daily. For Branch itching cyanocobala 2020-09 Yes [id number] 1000ug 1 mL by [facility] min 1,000 -09 Intramuscu ity of mcg/mL 00:00: lar route [place] injection 00 every 2 Medical (two) Branch weeks. levothyroxi 2020-09 Yes [id number] 50ug Take 1 [facility] ne 50 mcg -09 tablet by ity o f tablet 00:00: mouth [place] 00 every Medical morning. Branch fluticasone 2020-09 Yes [id number] 2{puff} Inhale 2 [facility] propionate 1-09 Puffs ity of (FLOVENT 00:00: every 12 [place] HFA) 110 00 (twelve) Medical mcg/actuati hours. Branch on inhaler Rinse mouth after each use. levalbutero 2020-09 Yes [id number] .63mg Inhale [facility] l 0.63 mg/3 1-09 0.63 mg 3 ity of mL 00:00: (three) [place] nebulizer 00 times Medical solution daily as Branch needed for Wheezing or Shortness of Breath. clotrimazol 2020-09 Yes [id number] Apply to [facility] e-betametha -09 area(s) 2 ity of sone cream 00:00: (two) [place] 00 times Medical daily. Branch cyclobenzap 2020-09 Yes [id number] TAKE 1 [facility] rine 5 mg 1-09 TABLET BY ity o f tablet 00:00: MOUTH [place] 00 EVERY 8 Medical HOURS Branch NEEDED econazole 2020-09 Yes [id number] Apply to [facility] nitrate 1 % -09 area(s) 2 ity of cream 00:00: (two) [place] 00 times Medical daily. Branch albuterol 2020-09 Yes [id number] 2{puff} Inhale 2 [facility] (PROAIR 1-09 Puffs ity of HFA) 90 00:00: every 6 [place] mcg/actuati 00 (six) Medical on inhaler hours as Branc h needed for Wheezing or Shortness of Breath. triamcinolo 2020-09 Yes [id number] Apply to [facility] ne 0.025 % 09 area(s) 3 ity of ointment 00:00: (three) [place] 00 times Medical daily. For Branch itching cyanocobala 2020-09 Yes [id number] 1000ug 1 mL by [facility] min 1,000 1-09 Intramuscu ity of mcg/mL 00:00: lar route [place] injection 00 every 2 Medical (two) Branch weeks. levothyroxi 2020-09 Yes [id number] 50ug Take 1 [facility] ne 50 mcg 1-09 tablet by ity o f tablet 00:00: mouth [place] 00 every Medical morning. Branch fluticasone 2020-09 Yes [id number] 2{puff} Inhale 2 [facility] propionate 1-09 Puffs ity of (FLOVENT 00:00: every 12 [place] HFA) 110 00 (twelve) Medical mcg/actuati hours. Branch on inhaler Rinse mouth after each use. levalbutero 2020-09 Yes [id number] .63mg Inhale [facility] l 0.63 mg/3 1-09 0.63 mg 3 ity of mL 00:00: (three) [place] nebulizer 00 times Medical solution daily as Branch needed for Wheezing or Shortness of Breath. clotrimazol 2020-09 Yes [id number] Apply to [facility] e-betametha 1-09 area(s) 2 ity of sone cream 00:00: (two) [place] 00 times Medical daily. Branch cyclobenzap 2020-09 Yes [id number] TAKE 1 [facility] rine 5 mg 1-09 TABLET BY ity o f tablet 00:00: MOUTH [place] 00 EVERY 8 Medical HOURS Branch NEEDED econazole 2020-09 Yes [id number] Apply to [facility] nitrate 1 % -09 area(s) 2 ity of cream 00:00: (two) [place] 00 times Medical daily. Branch albuterol 2020-09 Yes [id number] 2{puff} Inhale 2 [facility] (PROAIR 1-09 Puffs ity of HFA) 90 00:00: every 6 [place] mcg/actuati 00 (six) Medical on inhaler hours as Branc h needed for Wheezing or Shortness of Breath. triamcinolo 2020-09 Yes [id number] Apply to [facility] ne 0.025 % -09 area(s) 3 ity of ointment 00:00: (three) [place] 00 times Medical daily. For Branch itching cyanocobala 2020-09 Yes [id number] 1000ug 1 mL by [facility] min 1,000 -09 Intramuscu ity of mcg/mL 00:00: lar route [place] injection 00 every 2 Medical (two) Branch weeks. levothyroxi 2020-09 Yes [id number] 50ug Take 1 [facility] ne 50 mcg -09 tablet by ity o f tablet 00:00: mouth [place] 00 every Medical morning. Branch fluticasone 2020-09 Yes [id number] 2{puff} Inhale 2 [facility] propionate 1-09 Puffs ity of (FLOVENT 00:00: every 12 [place] HFA) 110 00 (twelve) Medical mcg/actuati hours. Branch on inhaler Rinse mouth after each use. levalbutero 2020-09 Yes [id number] .63mg Inhale [facility] l 0.63 mg/3 1-09 0.63 mg 3 ity of mL 00:00: (three) [place] nebulizer 00 times Medical solution daily as Branch needed for Wheezing or Shortness of Breath. clotrimazol 2020-09 Yes [id number] Apply to [facility] e-betametha -09 area(s) 2 ity of sone cream 00:00: (two) [place] 00 times Medical daily. Branch cyclobenzap 2020-09 Yes [id number] TAKE 1 [facility] rine 5 mg 1-09 TABLET BY ity o f tablet 00:00: MOUTH [place] 00 EVERY 8 Medical HOURS Branch NEEDED econazole 2020-09 Yes [id number] Apply to [facility] nitrate 1 % -09 area(s) 2 ity of cream 00:00: (two) [place] 00 times Medical daily. Branch albuterol 2020-09 Yes [id number] 2{puff} Inhale 2 [facility] (PROAIR 1-09 Puffs ity of HFA) 90 00:00: every 6 [place] mcg/actuati 00 (six) Medical on inhaler hours as Branc h needed for Wheezing or Shortness of Breath. triamcinolo 2020-09 Yes [id number] Apply to [facility] ne 0.025 % -09 area(s) 3 ity of ointment 00:00: (three) [place] 00 times Medical daily. For Branch itching cyanocobala 2020-09 Yes [id number] 1000ug 1 mL by [facility] min 1,000 -09 Intramuscu ity of mcg/mL 00:00: lar route [place] injection 00 every 2 Medical (two) Branch weeks. levothyroxi 2020-09 Yes [id number] 50ug Take 1 [facility] ne 50 mcg - tablet by ity o f tablet 00:00: mouth [place] 00 every Medical morning. Branch fluticasone 2020-09 Yes [id number] 2{puff} Inhale 2 [facility] propionate 1-09 Puffs ity of (FLOVENT 00:00: every 12 [place] HFA) 110 00 (twelve) Medical mcg/actuati hours. Branch on inhaler Rinse mouth after each use. levalbutero 2020-09 Yes [id number] .63mg Inhale [facility] l 0.63 mg/3 1-09 0.63 mg 3 ity of mL 00:00: (three) [place] nebulizer 00 times Medical solution daily as Branch needed for Wheezing or Shortness of Breath. clotrimazol 2020-09 Yes [id number] Apply to [facility] e-betametha -09 area(s) 2 ity of sone cream 00:00: (two) [place] 00 times Medical daily. Branch cyclobenzap 2020-09 Yes [id number] TAKE 1 [facility] rine 5 mg -09 TABLET BY ity o f tablet 00:00: MOUTH [place] 00 EVERY 8 Medical HOURS Branch NEEDED econazole 2020-09 Yes [id number] Apply to [facility] nitrate 1 % -09 area(s) 2 ity of cream 00:00: (two) [place] 00 times Medical daily. Branch albuterol 2020-09 Yes [id number] 2{puff} Inhale 2 [facility] (PROAIR 1-09 Puffs ity of HFA) 90 00:00: every 6 [place] mcg/actuati 00 (six) Medical on inhaler hours as Branc h needed for Wheezing or Shortness of Breath. triamcinolo 2020-09 Yes [id number] Apply to [facility] ne 0.025 % 1-09 area(s) 3 ity of ointment 00:00: (three) [place] 00 times Medical daily. For Branch itching cyanocobala 2020-09 Yes [id number] 1000ug 1 mL by [facility] min 1,000 1-09 Intramuscu ity of mcg/mL 00:00: lar route [place] injection 00 every 2 Medical (two) Branch weeks. levothyroxi 2020-09 Yes [id number] 50ug Take 1 [facility] ne 50 mcg 1-09 tablet by ity o f tablet 00:00: mouth [place] 00 every Medical morning. Branch fluticasone 2020-09 Yes [id number] 2{puff} Inhale 2 [facility] propionate 1-09 Puffs ity of (FLOVENT 00:00: every 12 [place] HFA) 110 00 (twelve) Medical mcg/actuati hours. Branch on inhaler Rinse mouth after each use. levalbutero 2020-09 Yes [id number] .63mg Inhale [facility] l 0.63 mg/3 1-09 0.63 mg 3 ity of mL 00:00: (three) [place] nebulizer 00 times Medical solution daily as Branch needed for Wheezing or Shortness of Breath. clotrimazol 2020-09 Yes [id number] Apply to [facility] e-betametha 1-09 area(s) 2 ity of sone cream 00:00: (two) [place] 00 times Medical daily. Branch cyclobenzap 2020-09 Yes [id number] TAKE 1 [facility] rine 5 mg 1-09 TABLET BY ity o f tablet 00:00: MOUTH [place] 00 EVERY 8 Medical HOURS Branch NEEDED econazole 2020-09 Yes [id number] Apply to [facility] nitrate 1 % 1-09 area(s) 2 ity of cream 00:00: (two) [place] 00 times Medical daily. Branch albuterol 2020-09 Yes [id number] 2{puff} Inhale 2 [facility] (PROAIR 1-09 Puffs ity of HFA) 90 00:00: every 6 [place] mcg/actuati 00 (six) Medical on inhaler hours as Branc h needed for Wheezing or Shortness of Breath. triamcinolo 2020-09 Yes [id number] Apply to [facility] ne 0.025 % 1-09 area(s) 3 ity of ointment 00:00: (three) [place] 00 times Medical daily. For Branch itching cyanocobala 2020-09 Yes [id number] 1000ug 1 mL by [facility] min 1,000 1-09 Intramuscu ity of mcg/mL 00:00: lar route [place] injection 00 every 2 Medical (two) Branch weeks. levothyroxi 2020-09 Yes [id number] 50ug Take 1 [facility] ne 50 mcg 1-09 tablet by ity o f tablet 00:00: mouth [place] 00 every Medical morning. Branch fluticasone 2020-09 Yes [id number] 2{puff} Inhale 2 [facility] propionate 1-09 Puffs ity of (FLOVENT 00:00: every 12 [place] HFA) 110 00 (twelve) Medical mcg/actuati hours. Branch on inhaler Rinse mouth after each use. levalbutero 2020-09 Yes [id number] .63mg Inhale [facility] l 0.63 mg/3 1-09 0.63 mg 3 ity of mL 00:00: (three) [place] nebulizer 00 times Medical solution daily as Branch needed for Wheezing or Shortness of Breath. clotrimazol 2020-09 Yes [id number] Apply to [facility] e-betametha -09 area(s) 2 ity of sone cream 00:00: (two) [place] 00 times Medical daily. Branch cyclobenzap 2020-09 Yes [id number] TAKE 1 [facility] rine 5 mg 1-09 TABLET BY ity o f tablet 00:00: MOUTH [place] 00 EVERY 8 Medical HOURS Branch NEEDED econazole 2020-09 Yes [id number] Apply to [facility] nitrate 1 % 1-09 area(s) 2 ity of cream 00:00: (two) [place] 00 times Medical daily. Branch albuterol 2020-09 Yes [id number] 2{puff} Inhale 2 [facility] (PROAIR 1-09 Puffs ity of HFA) 90 00:00: every 6 [place] mcg/actuati 00 (six) Medical on inhaler hours as Branc h needed for Wheezing or Shortness of Breath. triamcinolo 2020-09 Yes [id number] Apply to [facility] ne 0.025 % 1-09 area(s) 3 ity of ointment 00:00: (three) [place] 00 times Medical daily. For Branch itching cyanocobala 2020-09 Yes [id number] 1000ug 1 mL by [facility] min 1,000 1-09 Intramuscu ity of mcg/mL 00:00: lar route [place] injection 00 every 2 Medical (two) Branch weeks. levothyroxi 2020-09 Yes [id number] 50ug Take 1 [facility] ne 50 mcg 1-09 tablet by ity o f tablet 00:00: mouth [place] 00 every Medical morning. Branch fluticasone 2020-09 Yes [id number] 2{puff} Inhale 2 [facility] propionate 1-09 Puffs ity of (FLOVENT 00:00: every 12 [place] HFA) 110 00 (twelve) Medical mcg/actuati hours. Branch on inhaler Rinse mouth after each use. levalbutero 2020-09 Yes [id number] .63mg Inhale [facility] l 0.63 mg/3 1-09 0.63 mg 3 ity of mL 00:00: (three) [place] nebulizer 00 times Medical solution daily as Branch needed for Wheezing or Shortness of Breath. clotrimazol 2020-09 Yes [id number] Apply to [facility] e-betametha 09 area(s) 2 ity of sone cream 00:00: (two) [place] 00 times Medical daily. Branch cyclobenzap 2020-09 Yes [id number] TAKE 1 [facility] rine 5 mg 1-09 TABLET BY ity o f tablet 00:00: MOUTH [place] 00 EVERY 8 Medical HOURS Branch NEEDED econazole 2020-09 Yes [id number] Apply to [facility] nitrate 1 % 1-09 area(s) 2 ity of cream 00:00: (two) [place] 00 times Medical daily. Branch albuterol 2020-09 Yes [id number] 2{puff} Inhale 2 [facility] (PROAIR 1-09 Puffs ity of HFA) 90 00:00: every 6 [place] mcg/actuati 00 (six) Medical on inhaler hours as Branc h needed for Wheezing or Shortness of Breath. triamcinolo 2020-09 Yes [id number] Apply to [facility] ne 0.025 % 1-09 area(s) 3 ity of ointment 00:00: (three) [place] 00 times Medical daily. For Branch itching cyanocobala 2020-09 Yes [id number] 1000ug 1 mL by [facility] min 1,000 1-09 Intramuscu ity of mcg/mL 00:00: lar route [place] injection 00 every 2 Medical (two) Branch weeks. levothyroxi 2020-09 Yes [id number] 50ug Take 1 [facility] ne 50 mcg 1-09 tablet by ity o f tablet 00:00: mouth [place] 00 every Medical morning. Branch fluticasone 2020-09 Yes [id number] 2{puff} Inhale 2 [facility] propionate 1-09 Puffs ity of (FLOVENT 00:00: every 12 [place] HFA) 110 00 (twelve) Medical mcg/actuati hours. Branch on inhaler Rinse mouth after each use. levalbutero 2020-09 Yes [id number] .63mg Inhale [facility] l 0.63 mg/3 1-09 0.63 mg 3 ity of mL 00:00: (three) [place] nebulizer 00 times Medical solution daily as Branch needed for Wheezing or Shortness of Breath. clotrimazol 2020-09 Yes [id number] Apply to [facility] e-betametha -09 area(s) 2 ity of sone cream 00:00: (two) [place] 00 times Medical daily. Branch cyclobenzap 2020-09 Yes [id number] TAKE 1 [facility] rine 5 mg 1-09 TABLET BY ity o f tablet 00:00: MOUTH [place] 00 EVERY 8 Medical HOURS Branch NEEDED econazole 2020-09 Yes [id number] Apply to [facility] nitrate 1 % 1-09 area(s) 2 ity of cream 00:00: (two) [place] 00 times Medical daily. Branch albuterol 2020-09 Yes [id number] 2{puff} Inhale 2 [facility] (PROAIR 1-09 Puffs ity of HFA) 90 00:00: every 6 [place] mcg/actuati 00 (six) Medical on inhaler hours as Branc h needed for Wheezing or Shortness of Breath. triamcinolo 2020-09 Yes [id number] Apply to [facility] ne 0.025 % -09 area(s) 3 ity of ointment 00:00: (three) [place] 00 times Medical daily. For Branch itching cyanocobala 2020-09 Yes [id number] 1000ug 1 mL by [facility] min 1,000 -09 Intramuscu ity of mcg/mL 00:00: lar route [place] injection 00 every 2 Medical (two) Branch weeks. levothyroxi 2020-09 Yes [id number] 50ug Take 1 [facility] ne 50 mcg -09 tablet by ity o f tablet 00:00: mouth [place] 00 every Medical morning. Branch fluticasone 2020-09 Yes [id number] 2{puff} Inhale 2 [facility] propionate 1-09 Puffs ity of (FLOVENT 00:00: every 12 [place] HFA) 110 00 (twelve) Medical mcg/actuati hours. Branch on inhaler Rinse mouth after each use. levalbutero 2020-09 Yes [id number] .63mg Inhale [facility] l 0.63 mg/3 -09 0.63 mg 3 ity of mL 00:00: (three) [place] nebulizer 00 times Medical solution daily as Branch needed for Wheezing or Shortness of Breath. clotrimazol 2020-09 Yes [id number] Apply to [facility] e-betametha 10-04 area(s) 2 ity of sone cream 00:00: (two) [place] 00 times Medical daily. Branch cyclobenzap 2020-09 Yes [id number] TAKE 1 [facility] rine 5 mg -09 TABLET BY ity o f tablet 00:00: MOUTH [place] 00 EVERY 8 Medical HOURS Branch NEEDED econazole 2020-09 Yes [id number] Apply to [facility] nitrate 1 % -09 area(s) 2 ity of cream 00:00: (two) [place] 00 times Medical daily. Branch albuterol 2020-09 Yes [id number] 2{puff} Inhale 2 [facility] (PROAIR 1-09 Puffs ity of HFA) 90 00:00: every 6 [place] mcg/actuati 00 (six) Medical on inhaler hours as Branc h needed for Wheezing or Shortness of Breath. triamcinolo 2020-09 Yes [id number] Apply to [facility] ne 0.025 % 1-09 area(s) 3 ity of ointment 00:00: (three) [place] 00 times Medical daily. For Branch itching cyanocobala 2020-09 Yes [id number] 1000ug 1 mL by [facility] min 1,000 1-09 Intramuscu ity of mcg/mL 00:00: lar route [place] injection 00 every 2 Medical (two) Branch weeks. levothyroxi 2020-09 Yes [id number] 50ug Take 1 [facility] ne 50 mcg 1-09 tablet by ity o f tablet 00:00: mouth [place] 00 every Medical morning. Branch fluticasone 2020-09 Yes [id number] 2{puff} Inhale 2 [facility] propionate 1-09 Puffs ity of (FLOVENT 00:00: every 12 [place] HFA) 110 00 (twelve) Medical mcg/actuati hours. Branch on inhaler Rinse mouth after each use. levalbutero 2020-09 Yes [id number] .63mg Inhale [facility] l 0.63 mg/3 1-09 0.63 mg 3 ity of mL 00:00: (three) [place] nebulizer 00 times Medical solution daily as Branch needed for Wheezing or Shortness of Breath. clotrimazol 2020-09 Yes [id number] Apply to [facility] e-betametha 1-09 area(s) 2 ity of sone cream 00:00: (two) [place] 00 times Medical daily. Branch cyclobenzap 2020-09 Yes [id number] TAKE 1 [facility] rine 5 mg -09 TABLET BY ity o f tablet 00:00: MOUTH [place] 00 EVERY 8 Medical HOURS Branch NEEDED econazole 2020-09 Yes [id number] Apply to [facility] nitrate 1 % -09 area(s) 2 ity of cream 00:00: (two) [place] 00 times Medical daily. Branch albuterol 2020-09 Yes [id number] 2{puff} Inhale 2 [facility] (PROAIR 1-09 Puffs ity of HFA) 90 00:00: every 6 [place] mcg/actuati 00 (six) Medical on inhaler hours as Branc h needed for Wheezing or Shortness of Breath. triamcinolo 2020-09 Yes [id number] Apply to [facility] ne 0.025 % 1-09 area(s) 3 ity of ointment 00:00: (three) [place] 00 times Medical daily. For Branch itching cyanocobala 2020-09 Yes [id number] 1000ug 1 mL by [facility] min 1,000 1-09 Intramuscu ity of mcg/mL 00:00: lar route [place] injection 00 every 2 Medical (two) Branch weeks. levothyroxi 2020-09 Yes [id number] 50ug Take 1 [facility] ne 50 mcg 1-09 tablet by ity o f tablet 00:00: mouth [place] 00 every Medical morning. Branch fluticasone 2020-09 Yes [id number] 2{puff} Inhale 2 [facility] propionate 1-09 Puffs ity of (FLOVENT 00:00: every 12 [place] HFA) 110 00 (twelve) Medical mcg/actuati hours. Branch on inhaler Rinse mouth after each use. levalbutero 2020-09 Yes [id number] .63mg Inhale [facility] l 0.63 mg/3 1-09 0.63 mg 3 ity of mL 00:00: (three) [place] nebulizer 00 times Medical solution daily as Branch needed for Wheezing or Shortness of Breath. clotrimazol 2020-09 Yes [id number] Apply to [facility] e-betametha 1-09 area(s) 2 ity of sone cream 00:00: (two) [place] 00 times Medical daily. Branch cyclobenzap 2020-09 Yes [id number] TAKE 1 [facility] rine 5 mg -09 TABLET BY ity o f tablet 00:00: MOUTH [place] 00 EVERY 8 Medical HOURS Branch NEEDED econazole 2020-09 Yes [id number] Apply to [facility] nitrate 1 % -09 area(s) 2 ity of cream 00:00: (two) [place] 00 times Medical daily. Branch albuterol 2020-09 Yes [id number] 2{puff} Inhale 2 [facility] (PROAIR 1-09 Puffs ity of HFA) 90 00:00: every 6 [place] mcg/actuati 00 (six) Medical on inhaler hours as Branc h needed for Wheezing or Shortness of Breath. triamcinolo 2020-09 Yes [id number] Apply to [facility] ne 0.025 % 1-09 area(s) 3 ity of ointment 00:00: (three) [place] 00 times Medical daily. For Branch itching cyanocobala 2020-09 Yes [id number] 1000ug 1 mL by [facility] min 1,000 1-09 Intramuscu ity of mcg/mL 00:00: lar route [place] injection 00 every 2 Medical (two) Branch weeks. levothyroxi 2020-09 Yes [id number] 50ug Take 1 [facility] ne 50 mcg 1-09 tablet by ity o f tablet 00:00: mouth [place] 00 every Medical morning. Branch fluticasone 2020-09 Yes [id number] 2{puff} Inhale 2 [facility] propionate 1-09 Puffs ity of (FLOVENT 00:00: every 12 [place] HFA) 110 00 (twelve) Medical mcg/actuati hours. Branch on inhaler Rinse mouth after each use. levalbutero 2020-09 Yes [id number] .63mg Inhale [facility] l 0.63 mg/3 1-09 0.63 mg 3 ity of mL 00:00: (three) [place] nebulizer 00 times Medical solution daily as Branch needed for Wheezing or Shortness of Breath. clotrimazol 2020-09 Yes [id number] Apply to [facility] e-betametha 1-09 area(s) 2 ity of sone cream 00:00: (two) [place] 00 times Medical daily. Branch cyclobenzap 2020-09 Yes [id number] TAKE 1 [facility] rine 5 mg 1-09 TABLET BY ity o f tablet 00:00: MOUTH [place] 00 EVERY 8 Medical HOURS Branch NEEDED econazole 2020-09 Yes [id number] Apply to [facility] nitrate 1 % 1-09 area(s) 2 ity of cream 00:00: (two) [place] 00 times Medical daily. Branch albuterol 2020-09 Yes [id number] 2{puff} Inhale 2 [facility] (PROAIR 1-09 Puffs ity of HFA) 90 00:00: every 6 [place] mcg/actuati 00 (six) Medical on inhaler hours as Branc h needed for Wheezing or Shortness of Breath. triamcinolo 2020-09 Yes [id number] Apply to [facility] ne 0.025 % 1-09 area(s) 3 ity of ointment 00:00: (three) [place] 00 times Medical daily. For Branch itching cyanocobala 2020-09 Yes [id number] 1000ug 1 mL by [facility] min 1,000 1-09 Intramuscu ity of mcg/mL 00:00: lar route [place] injection 00 every 2 Medical (two) Branch weeks. levothyroxi 2020-09 Yes [id number] 50ug Take 1 [facility] ne 50 mcg 1-09 tablet by ity o f tablet 00:00: mouth [place] 00 every Medical morning. Branch fluticasone 2020-09 Yes [id number] 2{puff} Inhale 2 [facility] propionate 1-09 Puffs ity of (FLOVENT 00:00: every 12 [place] HFA) 110 00 (twelve) Medical mcg/actuati hours. Branch on inhaler Rinse mouth after each use. levalbutero 2020-09 Yes [id number] .63mg Inhale [facility] l 0.63 mg/3 1-09 0.63 mg 3 ity of mL 00:00: (three) [place] nebulizer 00 times Medical solution daily as Branch needed for Wheezing or Shortness of Breath. clotrimazol 2020-09 Yes [id number] Apply to [facility] e-betametha 1-09 area(s) 2 ity of sone cream 00:00: (two) [place] 00 times Medical daily. Branch cyclobenzap 2020-09 Yes [id number] TAKE 1 [facility] rine 5 mg 1-09 TABLET BY ity o f tablet 00:00: MOUTH [place] 00 EVERY 8 Medical HOURS Branch NEEDED econazole 2020-09 Yes [id number] Apply to [facility] nitrate 1 % 1-09 area(s) 2 ity of cream 00:00: (two) [place] 00 times Medical daily. Branch albuterol 2020-09 Yes [id number] 2{puff} Inhale 2 [facility] (PROAIR 1-09 Puffs ity of HFA) 90 00:00: every 6 [place] mcg/actuati 00 (six) Medical on inhaler hours as Branc h needed for Wheezing or Shortness of Breath. triamcinolo 2020-09 Yes [id number] Apply to [facility] ne 0.025 % 1-09 area(s) 3 ity of ointment 00:00: (three) [place] 00 times Medical daily. For Branch itching cyanocobala 2020-09 Yes [id number] 1000ug 1 mL by [facility] min 1,000 1-09 Intramuscu ity of mcg/mL 00:00: lar route [place] injection 00 every 2 Medical (two) Branch weeks. levothyroxi 2020-09 Yes [id number] 50ug Take 1 [facility] ne 50 mcg 1-09 tablet by ity o f tablet 00:00: mouth [place] 00 every Medical morning. Branch fluticasone 2020-09 Yes [id number] 2{puff} Inhale 2 [facility] propionate 1-09 Puffs ity of (FLOVENT 00:00: every 12 [place] HFA) 110 00 (twelve) Medical mcg/actuati hours. Branch on inhaler Rinse mouth after each use. levalbutero 2020-09 Yes [id number] .63mg Inhale [facility] l 0.63 mg/3 1-09 0.63 mg 3 ity of mL 00:00: (three) [place] nebulizer 00 times Medical solution daily as Branch needed for Wheezing or Shortness of Breath. clotrimazol 2020-09 Yes [id number] Apply to [facility] e-betametha -09 area(s) 2 ity of sone cream 00:00: (two) [place] 00 times Medical daily. Branch cyclobenzap 2020-09 Yes [id number] TAKE 1 [facility] rine 5 mg -09 TABLET BY ity o f tablet 00:00: MOUTH [place] 00 EVERY 8 Medical HOURS Branch NEEDED econazole 2020-09 Yes [id number] Apply to [facility] nitrate 1 % - area(s) 2 ity of cream 00:00: (two) [place] 00 times Medical daily. Branch albuterol 2020-09 Yes [id number] 2{puff} Inhale 2 [facility] (PROAIR 1-09 Puffs ity of HFA) 90 00:00: every 6 [place] mcg/actuati 00 (six) Medical on inhaler hours as Branc h needed for Wheezing or Shortness of Breath. triamcinolo 2020-09 Yes [id number] Apply to [facility] ne 0.025 % -09 area(s) 3 ity of ointment 00:00: (three) [place] 00 times Medical daily. For Branch itching cyanocobala 2020-09 Yes [id number] 1000ug 1 mL by [facility] min 1,000 1-09 Intramuscu ity of mcg/mL 00:00: lar route [place] injection 00 every 2 Medical (two) Branch weeks. levothyroxi 2020-09 Yes [id number] 50ug Take 1 [facility] ne 50 mcg 1-09 tablet by ity o f tablet 00:00: mouth [place] 00 every Medical morning. Branch fluticasone 2020-09 Yes [id number] 2{puff} Inhale 2 [facility] propionate 1-09 Puffs ity of (FLOVENT 00:00: every 12 [place] HFA) 110 00 (twelve) Medical mcg/actuati hours. Branch on inhaler Rinse mouth after each use. levalbutero 2020-09 Yes [id number] .63mg Inhale [facility] l 0.63 mg/3 1-09 0.63 mg 3 ity of mL 00:00: (three) [place] nebulizer 00 times Medical solution daily as Branch needed for Wheezing or Shortness of Breath. clotrimazol 2020-09 Yes [id number] Apply to [facility] e-betametha -09 area(s) 2 ity of sone cream 00:00: (two) [place] 00 times Medical daily. Branch cyclobenzap 2020-09 Yes [id number] TAKE 1 [facility] rine 5 mg -09 TABLET BY ity o f tablet 00:00: MOUTH [place] 00 EVERY 8 Medical HOURS Branch NEEDED econazole 2020-09 Yes [id number] Apply to [facility] nitrate 1 % -09 area(s) 2 ity of cream 00:00: (two) [place] 00 times Medical daily. Branch albuterol 2020-09 Yes [id number] 2{puff} Inhale 2 [facility] (PROAIR 1-09 Puffs ity of HFA) 90 00:00: every 6 [place] mcg/actuati 00 (six) Medical on inhaler hours as Branc h needed for Wheezing or Shortness of Breath. triamcinolo 2020-09 Yes [id number] Apply to [facility] ne 0.025 % -09 area(s) 3 ity of ointment 00:00: (three) [place] 00 times Medical daily. For Branch itching cyanocobala 2020-09 Yes [id number] 1000ug 1 mL by [facility] min 1,000 1-09 Intramuscu ity of mcg/mL 00:00: lar route [place] injection 00 every 2 Medical (two) Branch weeks. levothyroxi 2020-09 Yes [id number] 50ug Take 1 [facility] ne 50 mcg 1-09 tablet by ity o f tablet 00:00: mouth [place] 00 every Medical morning. Branch fluticasone 2020-09 Yes [id number] 2{puff} Inhale 2 [facility] propionate 1-09 Puffs ity of (FLOVENT 00:00: every 12 [place] HFA) 110 00 (twelve) Medical mcg/actuati hours. Branch on inhaler Rinse mouth after each use. levalbutero 2020-09 Yes [id number] .63mg Inhale [facility] l 0.63 mg/3 1-09 0.63 mg 3 ity of mL 00:00: (three) [place] nebulizer 00 times Medical solution daily as Branch needed for Wheezing or Shortness of Breath. clotrimazol 2020-09 Yes [id number] Apply to [facility] e-betametha 1-09 area(s) 2 ity of sone cream 00:00: (two) [place] 00 times Medical daily. Branch cyclobenzap 2020-09 Yes [id number] TAKE 1 [facility] rine 5 mg -09 TABLET BY ity o f tablet 00:00: MOUTH [place] 00 EVERY 8 Medical HOURS Branch NEEDED econazole 2020-09 Yes [id number] Apply to [facility] nitrate 1 % 1-09 area(s) 2 ity of cream 00:00: (two) [place] 00 times Medical daily. Branch albuterol 2020-09 Yes [id number] 2{puff} Inhale 2 [facility] (PROAIR 1-09 Puffs ity of HFA) 90 00:00: every 6 [place] mcg/actuati 00 (six) Medical on inhaler hours as Branc h needed for Wheezing or Shortness of Breath. triamcinolo 2020-09 Yes [id number] Apply to [facility] ne 0.025 % 1-09 area(s) 3 ity of ointment 00:00: (three) [place] 00 times Medical daily. For Branch itching cyanocobala 2020-09 Yes [id number] 1000ug 1 mL by [facility] min 1,000 1-09 Intramuscu ity of mcg/mL 00:00: lar route [place] injection 00 every 2 Medical (two) Branch weeks. levothyroxi 2020-09 Yes [id number] 50ug Take 1 [facility] ne 50 mcg 1-09 tablet by ity o f tablet 00:00: mouth [place] 00 every Medical morning. Branch fluticasone 2020-09 Yes [id number] 2{puff} Inhale 2 [facility] propionate 1-09 Puffs ity of (FLOVENT 00:00: every 12 [place] HFA) 110 00 (twelve) Medical mcg/actuati hours. Branch on inhaler Rinse mouth after each use. levalbutero 2020-09 Yes [id number] .63mg Inhale [facility] l 0.63 mg/3 1-09 0.63 mg 3 ity of mL 00:00: (three) [place] nebulizer 00 times Medical solution daily as Branch needed for Wheezing or Shortness of Breath. clotrimazol 2020-09 Yes [id number] Apply to [facility] e-betametha -09 area(s) 2 ity of sone cream 00:00: (two) [place] 00 times Medical daily. Branch cyclobenzap 2020-09 Yes [id number] TAKE 1 [facility] rine 5 mg -09 TABLET BY ity o f tablet 00:00: MOUTH [place] 00 EVERY 8 Medical HOURS Branch NEEDED econazole 2020-09 Yes [id number] Apply to [facility] nitrate 1 % -09 area(s) 2 ity of cream 00:00: (two) [place] 00 times Medical daily. Branch albuterol 2020-09 Yes [id number] 2{puff} Inhale 2 [facility] (PROAIR 1-09 Puffs ity of HFA) 90 00:00: every 6 [place] mcg/actuati 00 (six) Medical on inhaler hours as Branc h needed for Wheezing or Shortness of Breath. triamcinolo 2020-09 Yes [id number] Apply to [facility] ne 0.025 % -09 area(s) 3 ity of ointment 00:00: (three) [place] 00 times Medical daily. For Branch itching cyanocobala 2020-09 Yes [id number] 1000ug 1 mL by [facility] min 1,000 1-09 Intramuscu ity of mcg/mL 00:00: lar route [place] injection 00 every 2 Medical (two) Branch weeks. levothyroxi 2020-09 Yes [id number] 50ug Take 1 [facility] ne 50 mcg 1-09 tablet by ity o f tablet 00:00: mouth [place] 00 every Medical morning. Branch fluticasone 2020-09 Yes [id number] 2{puff} Inhale 2 [facility] propionate 1-09 Puffs ity of (FLOVENT 00:00: every 12 [place] HFA) 110 00 (twelve) Medical mcg/actuati hours. Branch on inhaler Rinse mouth after each use. levalbutero 2020-09 Yes [id number] .63mg Inhale [facility] l 0.63 mg/3 1-09 0.63 mg 3 ity of mL 00:00: (three) [place] nebulizer 00 times Medical solution daily as Branch needed for Wheezing or Shortness of Breath. clotrimazol 2020-09 Yes [id number] Apply to [facility] e-betametha -09 area(s) 2 ity of sone cream 00:00: (two) [place] 00 times Medical daily. Branch cyclobenzap 2020-09 Yes [id number] TAKE 1 [facility] rine 5 mg -09 TABLET BY ity o f tablet 00:00: MOUTH [place] 00 EVERY 8 Medical HOURS Branch NEEDED econazole 2020-09 Yes [id number] Apply to [facility] nitrate 1 % 10-04 area(s) 2 ity of cream 00:00: (two) [place] 00 times Medical daily. Branch albuterol 2020-09 Yes [id number] 2{puff} Inhale 2 [facility] (PROAIR 1-09 Puffs ity of HFA) 90 00:00: every 6 [place] mcg/actuati 00 (six) Medical on inhaler hours as Branc h needed for Wheezing or Shortness of Breath. triamcinolo 2020-09 Yes [id number] Apply to [facility] ne 0.025 % 09 area(s) 3 ity of ointment 00:00: (three) [place] 00 times Medical daily. For Branch itching cyanocobala 2020-09 Yes [id number] 1000ug 1 mL by [facility] min 1,000 -09 Intramuscu ity of mcg/mL 00:00: lar route [place] injection 00 every 2 Medical (two) Branch weeks. levothyroxi 2020-09 Yes [id number] 50ug Take 1 [facility] ne 50 mcg 1-09 tablet by ity o f tablet 00:00: mouth [place] 00 every Medical morning. Branch fluticasone 2020-09 Yes [id number] 2{puff} Inhale 2 [facility] propionate 1-09 Puffs ity of (FLOVENT 00:00: every 12 [place] HFA) 110 00 (twelve) Medical mcg/actuati hours. Branch on inhaler Rinse mouth after each use. levalbutero 2020-09 Yes [id number] .63mg Inhale [facility] l 0.63 mg/3 1-09 0.63 mg 3 ity of mL 00:00: (three) [place] nebulizer 00 times Medical solution daily as Branch needed for Wheezing or Shortness of Breath. clotrimazol 2020-09 Yes [id number] Apply to [facility] e-betametha 10-04 area(s) 2 ity of sone cream 00:00: (two) [place] 00 times Medical daily. Branch cyclobenzap 2020-09 Yes [id number] TAKE 1 [facility] rine 5 mg 09 TABLET BY ity o f tablet 00:00: MOUTH [place] 00 EVERY 8 Medical HOURS Branch NEEDED econazole 2020-09 Yes [id number] Apply to [facility] nitrate 1 % 10-04 area(s) 2 ity of cream 00:00: (two) [place] 00 times Medical daily. Branch albuterol 2020-09 Yes [id number] 2{puff} Inhale 2 [facility] (PROAIR 1-09 Puffs ity of HFA) 90 00:00: every 6 [place] mcg/actuati 00 (six) Medical on inhaler hours as Branc h needed for Wheezing or Shortness of Breath. triamcinolo 2020-09 Yes [id number] Apply to [facility] ne 0.025 % 09 area(s) 3 ity of ointment 00:00: (three) [place] 00 times Medical daily. For Branch itching cyanocobala 2020-09 Yes [id number] 1000ug 1 mL by [facility] min 1,000 -09 Intramuscu ity of mcg/mL 00:00: lar route [place] injection 00 every 2 Medical (two) Branch weeks. levothyroxi 2020-09 Yes [id number] 50ug Take 1 [facility] ne 50 mcg -09 tablet by ity o f tablet 00:00: mouth [place] 00 every Medical morning. Branch fluticasone 2020-09 Yes [id number] 2{puff} Inhale 2 [facility] propionate 1-09 Puffs ity of (FLOVENT 00:00: every 12 [place] HFA) 110 00 (twelve) Medical mcg/actuati hours. Branch on inhaler Rinse mouth after each use. levalbutero 2020-09 Yes [id number] .63mg Inhale [facility] l 0.63 mg/3 -09 0.63 mg 3 ity of mL 00:00: (three) [place] nebulizer 00 times Medical solution daily as Branch needed for Wheezing or Shortness of Breath. clotrimazol 2020-09 Yes [id number] Apply to [facility] e-betametha 09 area(s) 2 ity of sone cream 00:00: (two) [place] 00 times Medical daily. Branch cyclobenzap 2020-09 Yes [id number] TAKE 1 [facility] rine 5 mg 09 TABLET BY ity o f tablet 00:00: MOUTH [place] 00 EVERY 8 Medical HOURS Branch NEEDED econazole 2020-09 Yes [id number] Apply to [facility] nitrate 1 % 10-04 area(s) 2 ity of cream 00:00: (two) [place] 00 times Medical daily. Branch albuterol 2020-09 Yes [id number] 2{puff} Inhale 2 [facility] (PROAIR 1-09 Puffs ity of HFA) 90 00:00: every 6 [place] mcg/actuati 00 (six) Medical on inhaler hours as Branc h needed for Wheezing or Shortness of Breath. triamcinolo 2020-09 Yes [id number] Apply to [facility] ne 0.025 % 10-04 area(s) 3 ity of ointment 00:00: (three) [place] 00 times Medical daily. For Branch itching cyanocobala 2020-09 Yes [id number] 1000ug 1 mL by [facility] min 1,000 09 Intramuscu ity of mcg/mL 00:00: lar route [place] injection 00 every 2 Medical (two) Branch weeks. levothyroxi 2020-09 Yes [id number] 50ug Take 1 [facility] ne 50 mcg -09 tablet by ity o f tablet 00:00: mouth [place] 00 every Medical morning. Branch fluticasone 2020-09 Yes [id number] 2{puff} Inhale 2 [facility] propionate 1-09 Puffs ity of (FLOVENT 00:00: every 12 [place] HFA) 110 00 (twelve) Medical mcg/actuati hours. Branch on inhaler Rinse mouth after each use. levalbutero 2020-09 Yes [id number] .63mg Inhale [facility] l 0.63 mg/3 1-09 0.63 mg 3 ity of mL 00:00: (three) [place] nebulizer 00 times Medical solution daily as Branch needed for Wheezing or Shortness of Breath. clotrimazol 2020-09 Yes [id number] Apply to [facility] e-betametha 1-09 area(s) 2 ity of sone cream 00:00: (two) [place] 00 times Medical daily. Branch cyclobenzap 2020-09 Yes [id number] TAKE 1 [facility] rine 5 mg 1-09 TABLET BY ity o f tablet 00:00: MOUTH [place] 00 EVERY 8 Medical HOURS Branch NEEDED econazole 2020-09 Yes [id number] Apply to [facility] nitrate 1 % -09 area(s) 2 ity of cream 00:00: (two) [place] 00 times Medical daily. Branch albuterol 2020-09 Yes [id number] 2{puff} Inhale 2 [facility] (PROAIR 1-09 Puffs ity of HFA) 90 00:00: every 6 [place] mcg/actuati 00 (six) Medical on inhaler hours as Branc h needed for Wheezing or Shortness of Breath. triamcinolo 2020-09 Yes [id number] Apply to [facility] ne 0.025 % -09 area(s) 3 ity of ointment 00:00: (three) [place] 00 times Medical daily. For Branch itching cyanocobala 2020-09 Yes [id number] 1000ug 1 mL by [facility] min 1,000 1-09 Intramuscu ity of mcg/mL 00:00: lar route [place] injection 00 every 2 Medical (two) Branch weeks. levothyroxi 2020-09 Yes [id number] 50ug Take 1 [facility] ne 50 mcg 1-09 tablet by ity o f tablet 00:00: mouth [place] 00 every Medical morning. Branch fluticasone 2020-09 Yes [id number] 2{puff} Inhale 2 [facility] propionate 1-09 Puffs ity of (FLOVENT 00:00: every 12 [place] HFA) 110 00 (twelve) Medical mcg/actuati hours. Branch on inhaler Rinse mouth after each use. levalbutero 2020-09 Yes [id number] .63mg Inhale [facility] l 0.63 mg/3 1-09 0.63 mg 3 ity of mL 00:00: (three) [place] nebulizer 00 times Medical solution daily as Branch needed for Wheezing or Shortness of Breath. clotrimazol 2020-09 Yes [id number] Apply to [facility] e-betametha 09 area(s) 2 ity of sone cream 00:00: (two) [place] 00 times Medical daily. Branch cyclobenzap 2020-09 Yes [id number] TAKE 1 [facility] rine 5 mg -09 TABLET BY ity o f tablet 00:00: MOUTH [place] 00 EVERY 8 Medical HOURS Branch NEEDED econazole 2020-09 Yes [id number] Apply to [facility] nitrate 1 % 09 area(s) 2 ity of cream 00:00: (two) [place] 00 times Medical daily. Branch albuterol 2020-09 Yes [id number] 2{puff} Inhale 2 [facility] (PROAIR 1-09 Puffs ity of HFA) 90 00:00: every 6 [place] mcg/actuati 00 (six) Medical on inhaler hours as Branc h needed for Wheezing or Shortness of Breath. triamcinolo 2020-09 Yes [id number] Apply to [facility] ne 0.025 % 10-04 area(s) 3 ity of ointment 00:00: (three) [place] 00 times Medical daily. For Branch itching cyanocobala 2020-09 Yes [id number] 1000ug 1 mL by [facility] min 1,000 1-09 Intramuscu ity of mcg/mL 00:00: lar route [place] injection 00 every 2 Medical (two) Branch weeks. levothyroxi 2020-09 Yes [id number] 50ug Take 1 [facility] ne 50 mcg 09 tablet by ity o f tablet 00:00: mouth [place] 00 every Medical morning. Branch fluticasone 2020-09 Yes [id number] 2{puff} Inhale 2 [facility] propionate 1-09 Puffs ity of (FLOVENT 00:00: every 12 [place] HFA) 110 00 (twelve) Medical mcg/actuati hours. Branch on inhaler Rinse mouth after each use. levalbutero 2020-09 Yes [id number] .63mg Inhale [facility] l 0.63 mg/3 1-09 0.63 mg 3 ity of mL 00:00: (three) [place] nebulizer 00 times Medical solution daily as Branch needed for Wheezing or Shortness of Breath. clotrimazol 2020-09 Yes [id number] Apply to [facility] e-betametha -09 area(s) 2 ity of sone cream 00:00: (two) [place] 00 times Medical daily. Branch cyclobenzap 2020-09 Yes [id number] TAKE 1 [facility] rine 5 mg -09 TABLET BY ity o f tablet 00:00: MOUTH [place] 00 EVERY 8 Medical HOURS Branch NEEDED econazole 2020-09 Yes [id number] Apply to [facility] nitrate 1 % 09 area(s) 2 ity of cream 00:00: (two) [place] 00 times Medical daily. Branch albuterol 2020-09 Yes [id number] 2{puff} Inhale 2 [facility] (PROAIR 1-09 Puffs ity of HFA) 90 00:00: every 6 [place] mcg/actuati 00 (six) Medical on inhaler hours as Branc h needed for Wheezing or Shortness of Breath. triamcinolo 2020-09 Yes [id number] Apply to [facility] ne 0.025 % 09 area(s) 3 ity of ointment 00:00: (three) [place] 00 times Medical daily. For Branch itching cyanocobala 2020-09 Yes [id number] 1000ug 1 mL by [facility] min 1,000 -09 Intramuscu ity of mcg/mL 00:00: lar route [place] injection 00 every 2 Medical (two) Branch weeks. levothyroxi 2020-09 Yes [id number] 50ug Take 1 [facility] ne 50 mcg 09 tablet by ity o f tablet 00:00: mouth [place] 00 every Medical morning. Branch fluticasone 2020-09 Yes [id number] 2{puff} Inhale 2 [facility] propionate 1-09 Puffs ity of (FLOVENT 00:00: every 12 [place] HFA) 110 00 (twelve) Medical mcg/actuati hours. Branch on inhaler Rinse mouth after each use. levalbutero 2020-09 Yes [id number] .63mg Inhale [facility] l 0.63 mg/3 1-09 0.63 mg 3 ity of mL 00:00: (three) [place] nebulizer 00 times Medical solution daily as Branch needed for Wheezing or Shortness of Breath. clotrimazol 2020-09 Yes [id number] Apply to [facility] e-betametha -09 area(s) 2 ity of sone cream 00:00: (two) [place] 00 times Medical daily. Branch cyclobenzap 2020-09 Yes [id number] TAKE 1 [facility] rine 5 mg -09 TABLET BY ity o f tablet 00:00: MOUTH [place] 00 EVERY 8 Medical HOURS Branch NEEDED econazole 2020-09 Yes [id number] Apply to [facility] nitrate 1 % 09 area(s) 2 ity of cream 00:00: (two) [place] 00 times Medical daily. Branch albuterol 2020-09 Yes [id number] 2{puff} Inhale 2 [facility] (PROAIR 1-09 Puffs ity of HFA) 90 00:00: every 6 [place] mcg/actuati 00 (six) Medical on inhaler hours as Branc h needed for Wheezing or Shortness of Breath. triamcinolo 2020-09 Yes [id number] Apply to [facility] ne 0.025 % 10-04 area(s) 3 ity of ointment 00:00: (three) [place] 00 times Medical daily. For Branch itching cyanocobala 2020-09 Yes [id number] 1000ug 1 mL by [facility] min 1,000 1-09 Intramuscu ity of mcg/mL 00:00: lar route [place] injection 00 every 2 Medical (two) Branch weeks. levothyroxi 2020-09 Yes [id number] 50ug Take 1 [facility] ne 50 mcg -09 tablet by ity o f tablet 00:00: mouth [place] 00 every Medical morning. Branch fluticasone 2020-09 Yes [id number] 2{puff} Inhale 2 [facility] propionate 1-09 Puffs ity of (FLOVENT 00:00: every 12 [place] HFA) 110 00 (twelve) Medical mcg/actuati hours. Branch on inhaler Rinse mouth after each use. levalbutero 2020-09 Yes [id number] .63mg Inhale [facility] l 0.63 mg/3 1-09 0.63 mg 3 ity of mL 00:00: (three) [place] nebulizer 00 times Medical solution daily as Branch needed for Wheezing or Shortness of Breath. clotrimazol 2020-09 Yes [id number] Apply to [facility] e-betametha -09 area(s) 2 ity of sone cream 00:00: (two) [place] 00 times Medical daily. Branch cyclobenzap 2020-09 Yes [id number] TAKE 1 [facility] rine 5 mg 1-09 TABLET BY ity o f tablet 00:00: MOUTH [place] 00 EVERY 8 Medical HOURS Branch NEEDED econazole 2020-09 Yes [id number] Apply to [facility] nitrate 1 % 10-04 area(s) 2 ity of cream 00:00: (two) [place] 00 times Medical daily. Branch albuterol 2020-09 Yes [id number] 2{puff} Inhale 2 [facility] (PROAIR 1-09 Puffs ity of HFA) 90 00:00: every 6 [place] mcg/actuati 00 (six) Medical on inhaler hours as Branc h needed for Wheezing or Shortness of Breath. triamcinolo 2020-09 Yes [id number] Apply to [facility] ne 0.025 % 10-04 area(s) 3 ity of ointment 00:00: (three) [place] 00 times Medical daily. For Branch itching cyanocobala 2020-09 Yes [id number] 1000ug 1 mL by [facility] min 1,000 09 Intramuscu ity of mcg/mL 00:00: lar route [place] injection 00 every 2 Medical (two) Branch weeks. fluticasone 2020-09 Yes [id number] 2{puff} Inhale 2 [facility] propionate 1-09 Puffs ity of (FLOVENT 00:00: every 12 [place] HFA) 110 00 (twelve) Medical mcg/actuati hours. Branch on inhaler Rinse mouth after each use. levalbutero 2020-09 Yes [id number] .63mg Inhale [facility] l 0.63 mg/3 09 0.63 mg 3 ity of mL 00:00: (three) [place] nebulizer 00 times Medical solution daily as Branch needed for Wheezing or Shortness of Breath. clotrimazol 2020-09 Yes [id number] Apply to [facility] e-betametha 10-04 area(s) 2 ity of sone cream 00:00: (two) [place] 00 times Medical daily. Branch cyclobenzap 2020-09 Yes [id number] TAKE 1 [facility] rine 5 mg -09 TABLET BY ity o f tablet 00:00: MOUTH [place] 00 EVERY 8 Medical HOURS Branch NEEDED econazole 2020-09 Yes [id number] Apply to [facility] nitrate 1 % 10-04 area(s) 2 ity of cream 00:00: (two) [place] 00 times Medical daily. Branch albuterol 2020-09 Yes [id number] 2{puff} Inhale 2 [facility] (PROAIR 1-09 Puffs ity of HFA) 90 00:00: every 6 [place] mcg/actuati 00 (six) Medical on inhaler hours as Branc h needed for Wheezing or Shortness of Breath. triamcinolo 2020-09 Yes [id number] Apply to [facility] ne 0.025 % 10-04 area(s) 3 ity of ointment 00:00: (three) [place] 00 times Medical daily. For Branch itching cyanocobala 2020-09 Yes [id number] 1000ug 1 mL by [facility] min 1,000 09 Intramuscu ity of mcg/mL 00:00: lar route [place] injection 00 every 2 Medical (two) Branch weeks. fluticasone 2020-09 Yes [id number] 2{puff} Inhale 2 [facility] propionate 1-09 Puffs ity of (FLOVENT 00:00: every 12 [place] HFA) 110 00 (twelve) Medical mcg/actuati hours. Branch on inhaler Rinse mouth after each use. levalbutero 2020-09 Yes [id number] .63mg Inhale [facility] l 0.63 mg/3 1-09 0.63 mg 3 ity of mL 00:00: (three) [place] nebulizer 00 times Medical solution daily as Branch needed for Wheezing or Shortness of Breath. clotrimazol 2020-09 Yes [id number] Apply to [facility] e-betametha 10-04 area(s) 2 ity of sone cream 00:00: (two) [place] 00 times Medical daily. Branch cyclobenzap 2020-09 Yes [id number] TAKE 1 [facility] rine 5 mg 10-04 TABLET BY ity o f tablet 00:00: MOUTH [place] 00 EVERY 8 Medical HOURS Branch NEEDED econazole 2020-09 Yes [id number] Apply to [facility] nitrate 1 % 09 area(s) 2 ity of cream 00:00: (two) [place] 00 times Medical daily. Branch albuterol 2020-09 Yes [id number] 2{puff} Inhale 2 [facility] (PROAIR 1-09 Puffs ity of HFA) 90 00:00: every 6 [place] mcg/actuati 00 (six) Medical on inhaler hours as Branc h needed for Wheezing or Shortness of Breath. triamcinolo 2020-09 Yes [id number] Apply to [facility] ne 0.025 % 1-09 area(s) 3 ity of ointment 00:00: (three) [place] 00 times Medical daily. For Branch itching cyanocobala 2020-09 Yes [id number] 1000ug 1 mL by [facility] min 1,000 1-09 Intramuscu ity of mcg/mL 00:00: lar route [place] injection 00 every 2 Medical (two) Branch weeks. levalbutero 2020-09 Yes [id number] .63mg Inhale [facility] l 0.63 mg/3 1-09 0.63 mg 3 ity of mL 00:00: (three) [place] nebulizer 00 times Medical solution daily as Branch needed for Wheezing or Shortness of Breath. cyclobenzap 2020-09 Yes [id number] TAKE 1 [facility] rine 5 mg 1-09 TABLET BY ity o f tablet 00:00: MOUTH [place] 00 EVERY 8 Medical HOURS Branch NEEDED albuterol 2020-09 Yes [id number] 2{puff} Inhale 2 [facility] (PROAIR 1-09 Puffs ity of HFA) 90 00:00: every 6 [place] mcg/actuati 00 (six) Medical on inhaler hours as Branc h needed for Wheezing or Shortness of Breath. cyanocobala 2020-09 Yes [id number] 1000ug 1 mL by [facility] min 1,000 1-09 Intramuscu ity of mcg/mL 00:00: lar route [place] injection 00 every 2 Medical (two) Branch weeks. levalbutero 2020-09 Yes [id number] .63mg Inhale [facility] l 0.63 mg/3 1-09 0.63 mg 3 ity of mL 00:00: (three) [place] nebulizer 00 times Medical solution daily as Branch needed for Wheezing or Shortness of Breath. cyclobenzap 2020-09 Yes [id number] TAKE 1 [facility] rine 5 mg 1-09 TABLET BY ity o f tablet 00:00: MOUTH [place] 00 EVERY 8 Medical HOURS Branch NEEDED albuterol 2020-09 Yes [id number] 2{puff} Inhale 2 [facility] (PROAIR 1-09 Puffs ity of HFA) 90 00:00: every 6 [place] mcg/actuati 00 (six) Medical on inhaler hours as Branc h needed for Wheezing or Shortness of Breath. cyanocobala 2020-09 Yes [id number] 1000ug 1 mL by [facility] min 1,000 1-09 Intramuscu ity of mcg/mL 00:00: lar route [place] injection 00 every 2 Medical (two) Branch weeks. levalbutero 2020-09 Yes [id number] .63mg Inhale [facility] l 0.63 mg/3 1-09 0.63 mg 3 ity of mL 00:00: (three) [place] nebulizer 00 times Medical solution daily as Branch needed for Wheezing or Shortness of Breath. cyclobenzap 2020-09 Yes [id number] TAKE 1 [facility] rine 5 mg 1-09 TABLET BY ity o f tablet 00:00: MOUTH [place] 00 EVERY 8 Medical HOURS Branch NEEDED albuterol 2020-09 Yes [id number] 2{puff} Inhale 2 [facility] (PROAIR 1-09 Puffs ity of HFA) 90 00:00: every 6 [place] mcg/actuati 00 (six) Medical on inhaler hours as Branc h needed for Wheezing or Shortness of Breath. cyanocobala 2020-09 Yes [id number] 1000ug 1 mL by [facility] min 1,000 1-09 Intramuscu ity of mcg/mL 00:00: lar route [place] injection 00 every 2 Medical (two) Branch weeks. levalbutero 2020-09 Yes [id number] .63mg Inhale [facility] l 0.63 mg/3 1-09 0.63 mg 3 ity of mL 00:00: (three) [place] nebulizer 00 times Medical solution daily as Branch needed for Wheezing or Shortness of Breath. cyclobenzap 2020-09 Yes [id number] TAKE 1 [facility] rine 5 mg 1-09 TABLET BY ity o f tablet 00:00: MOUTH [place] 00 EVERY 8 Medical HOURS Branch NEEDED albuterol 2020-09 Yes [id number] 2{puff} Inhale 2 [facility] (PROAIR 1-09 Puffs ity of HFA) 90 00:00: every 6 [place] mcg/actuati 00 (six) Medical on inhaler hours as Branc h needed for Wheezing or Shortness of Breath. cyanocobala 2020-09 Yes [id number] 1000ug 1 mL by [facility] min 1,000 1-09 Intramuscu ity of mcg/mL 00:00: lar route [place] injection 00 every 2 Medical (two) Branch weeks. levalbutero 2020-09 Yes [id number] .63mg Inhale [facility] l 0.63 mg/3 1-09 0.63 mg 3 ity of mL 00:00: (three) [place] nebulizer 00 times Medical solution daily as Branch needed for Wheezing or Shortness of Breath. cyclobenzap 2020-09 Yes [id number] TAKE 1 [facility] rine 5 mg 1-09 TABLET BY ity o f tablet 00:00: MOUTH [place] 00 EVERY 8 Medical HOURS Branch NEEDED albuterol 2020-09 Yes [id number] 2{puff} Inhale 2 [facility] (PROAIR 1-09 Puffs ity of HFA) 90 00:00: every 6 [place] mcg/actuati 00 (six) Medical on inhaler hours as Branc h needed for Wheezing or Shortness of Breath. cyanocobala 2020-09 Yes [id number] 1000ug 1 mL by [facility] min 1,000 1-09 Intramuscu ity of mcg/mL 00:00: lar route [place] injection 00 every 2 Medical (two) Branch weeks. levalbutero 2020-09 Yes [id number] .63mg Inhale [facility] l 0.63 mg/3 1-09 0.63 mg 3 ity of mL 00:00: (three) [place] nebulizer 00 times Medical solution daily as Branch needed for Wheezing or Shortness of Breath. cyclobenzap 2020-09 Yes [id number] TAKE 1 [facility] rine 5 mg 1-09 TABLET BY ity o f tablet 00:00: MOUTH [place] 00 EVERY 8 Medical HOURS Branch NEEDED albuterol 2020-09 Yes [id number] 2{puff} Inhale 2 [facility] (PROAIR 1-09 Puffs ity of HFA) 90 00:00: every 6 [place] mcg/actuati 00 (six) Medical on inhaler hours as Branc h needed for Wheezing or Shortness of Breath. cyanocobala 2020-09 Yes [id number] 1000ug 1 mL by [facility] min 1,000 1-09 Intramuscu ity of mcg/mL 00:00: lar route [place] injection 00 every 2 Medical (two) Branch weeks. levalbutero 2020-09 Yes [id number] .63mg Inhale [facility] l 0.63 mg/3 1-09 0.63 mg 3 ity of mL 00:00: (three) [place] nebulizer 00 times Medical solution daily as Branch needed for Wheezing or Shortness of Breath. cyclobenzap 2020-09 Yes [id number] TAKE 1 [facility] rine 5 mg 1-09 TABLET BY ity o f tablet 00:00: MOUTH [place] 00 EVERY 8 Medical HOURS Branch NEEDED albuterol 2020-09 Yes [id number] 2{puff} Inhale 2 [facility] (PROAIR 1-09 Puffs ity of HFA) 90 00:00: every 6 [place] mcg/actuati 00 (six) Medical on inhaler hours as Branc h needed for Wheezing or Shortness of Breath. cyanocobala 2020-09 Yes [id number] 1000ug 1 mL by [facility] min 1,000 1-09 Intramuscu ity of mcg/mL 00:00: lar route [place] injection 00 every 2 Medical (two) Branch weeks. levalbutero 2020-09 Yes [id number] .63mg Inhale [facility] l 0.63 mg/3 1-09 0.63 mg 3 ity of mL 00:00: (three) [place] nebulizer 00 times Medical solution daily as Branch needed for Wheezing or Shortness of Breath. cyclobenzap 2020-09 Yes [id number] TAKE 1 [facility] rine 5 mg 1-09 TABLET BY ity o f tablet 00:00: MOUTH [place] 00 EVERY 8 Medical HOURS Branch NEEDED albuterol 2020-09 Yes [id number] 2{puff} Inhale 2 [facility] (PROAIR 1-09 Puffs ity of HFA) 90 00:00: every 6 [place] mcg/actuati 00 (six) Medical on inhaler hours as Branc h needed for Wheezing or Shortness of Breath. cyanocobala 2020-09 Yes [id number] 1000ug 1 mL by [facility] min 1,000 1-09 Intramuscu ity of mcg/mL 00:00: lar route [place] injection 00 every 2 Medical (two) Branch weeks. levalbutero 2020-09 Yes [id number] .63mg Inhale [facility] l 0.63 mg/3 1-09 0.63 mg 3 ity of mL 00:00: (three) [place] nebulizer 00 times Medical solution daily as Branch needed for Wheezing or Shortness of Breath. cyclobenzap 2020-09 Yes [id number] TAKE 1 [facility] rine 5 mg 1-09 TABLET BY ity o f tablet 00:00: MOUTH [place] 00 EVERY 8 Medical HOURS Branch NEEDED albuterol 2020-09 Yes [id number] 2{puff} Inhale 2 [facility] (PROAIR 1-09 Puffs ity of HFA) 90 00:00: every 6 [place] mcg/actuati 00 (six) Medical on inhaler hours as Branc h needed for Wheezing or Shortness of Breath. levalbutero 2020-09 Yes [id number] .63mg Inhale [facility] l 0.63 mg/3 1-09 0.63 mg 3 ity of mL 00:00: (three) [place] nebulizer 00 times Medical solution daily as Branch needed for Wheezing or Shortness of Breath. cyclobenzap 2020-09 Yes [id number] TAKE 1 [facility] rine 5 mg 1-09 TABLET BY ity o f tablet 00:00: MOUTH [place] 00 EVERY 8 Medical HOURS Branch NEEDED albuterol 2020-09 Yes [id number] 2{puff} Inhale 2 [facility] (PROAIR 1-09 Puffs ity of HFA) 90 00:00: every 6 [place] mcg/actuati 00 (six) Medical on inhaler hours as Branc h needed for Wheezing or Shortness of Breath. levalbutero 2020-09 Yes [id number] .63mg Inhale [facility] l 0.63 mg/3 1-09 0.63 mg 3 ity of mL 00:00: (three) [place] nebulizer 00 times Medical solution daily as Branch needed for Wheezing or Shortness of Breath. cyclobenzap 2020-09 Yes [id number] TAKE 1 [facility] rine 5 mg 1-09 TABLET BY ity o f tablet 00:00: MOUTH [place] 00 EVERY 8 Medical HOURS Branch NEEDED albuterol 2020-09 Yes [id number] 2{puff} Inhale 2 [facility] (PROAIR 1-09 Puffs ity of HFA) 90 00:00: every 6 [place] mcg/actuati 00 (six) Medical on inhaler hours as Branc h needed for Wheezing or Shortness of Breath. levalbutero 2020-09 Yes [id number] .63mg Inhale [facility] l 0.63 mg/3 1-09 0.63 mg 3 ity of mL 00:00: (three) [place] nebulizer 00 times Medical solution daily as Branch needed for Wheezing or Shortness of Breath. cyclobenzap 2020-09 Yes [id number] TAKE 1 [facility] rine 5 mg 1-09 TABLET BY ity o f tablet 00:00: MOUTH [place] 00 EVERY 8 Medical HOURS Branch NEEDED albuterol 2020-09 Yes [id number] 2{puff} Inhale 2 [facility] (PROAIR 1-09 Puffs ity of HFA) 90 00:00: every 6 [place] mcg/actuati 00 (six) Medical on inhaler hours as Branc h needed for Wheezing or Shortness of Breath. levalbutero 2020-09 Yes [id number] .63mg Inhale [facility] l 0.63 mg/3 1-09 0.63 mg 3 ity of mL 00:00: (three) [place] nebulizer 00 times Medical solution daily as Branch needed for Wheezing or Shortness of Breath. cyclobenzap 2020-09 Yes [id number] TAKE 1 [facility] rine 5 mg 1-09 TABLET BY ity o f tablet 00:00: MOUTH [place] 00 EVERY 8 Medical HOURS Branch NEEDED albuterol 2020-09 Yes [id number] 2{puff} Inhale 2 [facility] (PROAIR 1-09 Puffs ity of HFA) 90 00:00: every 6 [place] mcg/actuati 00 (six) Medical on inhaler hours as Branc h needed for Wheezing or Shortness of Breath. levalbutero 2020-09 Yes [id number] .63mg Inhale [facility] l 0.63 mg/3 1-09 0.63 mg 3 ity of mL 00:00: (three) [place] nebulizer 00 times Medical solution daily as Branch needed for Wheezing or Shortness of Breath. cyclobenzap 2020-09 Yes [id number] TAKE 1 [facility] rine 5 mg 1-09 TABLET BY ity o f tablet 00:00: MOUTH [place] 00 EVERY 8 Medical HOURS Branch NEEDED albuterol 2020-09 Yes [id number] 2{puff} Inhale 2 [facility] (PROAIR 1-09 Puffs ity of HFA) 90 00:00: every 6 [place] mcg/actuati 00 (six) Medical on inhaler hours as Branc h needed for Wheezing or Shortness of Breath. levalbutero 2020-09 Yes [id number] .63mg Inhale [facility] l 0.63 mg/3 1-09 0.63 mg 3 ity of mL 00:00: (three) [place] nebulizer 00 times Medical solution daily as Branch needed for Wheezing or Shortness of Breath. cyclobenzap 2020-09 Yes [id number] TAKE 1 [facility] rine 5 mg 1-09 TABLET BY ity o f tablet 00:00: MOUTH [place] 00 EVERY 8 Medical HOURS Branch NEEDED albuterol 2020-09 Yes [id number] 2{puff} Inhale 2 [facility] (PROAIR 1-09 Puffs ity of HFA) 90 00:00: every 6 [place] mcg/actuati 00 (six) Medical on inhaler hours as Branc h needed for Wheezing or Shortness of Breath. levalbutero 2020-09 Yes [id number] .63mg Inhale [facility] l 0.63 mg/3 1-09 0.63 mg 3 ity of mL 00:00: (three) [place] nebulizer 00 times Medical solution daily as Branch needed for Wheezing or Shortness of Breath. cyclobenzap 2020-09 Yes [id number] TAKE 1 [facility] rine 5 mg 1-09 TABLET BY ity o f tablet 00:00: MOUTH [place] 00 EVERY 8 Medical HOURS Branch NEEDED albuterol 2020-09 Yes [id number] 2{puff} Inhale 2 [facility] (PROAIR 1-09 Puffs ity of HFA) 90 00:00: every 6 [place] mcg/actuati 00 (six) Medical on inhaler hours as Branc h needed for Wheezing or Shortness of Breath. levalbutero 2020-09 Yes [id number] .63mg Inhale [facility] l 0.63 mg/3 1-09 0.63 mg 3 ity of mL 00:00: (three) [place] nebulizer 00 times Medical solution daily as Branch needed for Wheezing or Shortness of Breath. cyclobenzap 2020-09 Yes [id number] TAKE 1 [facility] rine 5 mg 1-09 TABLET BY ity o f tablet 00:00: MOUTH [place] 00 EVERY 8 Medical HOURS Branch NEEDED albuterol 2020-09 Yes [id number] 2{puff} Inhale 2 [facility] (PROAIR 1-09 Puffs ity of HFA) 90 00:00: every 6 [place] mcg/actuati 00 (six) Medical on inhaler hours as Branc h needed for Wheezing or Shortness of Breath. levalbutero 2020-09 Yes [id number] .63mg Inhale [facility] l 0.63 mg/3 1-09 0.63 mg 3 ity of mL 00:00: (three) [place] nebulizer 00 times Medical solution daily as Branch needed for Wheezing or Shortness of Breath. cyclobenzap 2020-09 Yes [id number] TAKE 1 [facility] rine 5 mg 1-09 TABLET BY ity o f tablet 00:00: MOUTH [place] 00 EVERY 8 Medical HOURS Branch NEEDED albuterol 2020-09 Yes [id number] 2{puff} Inhale 2 [facility] (PROAIR 1-09 Puffs ity of HFA) 90 00:00: every 6 [place] mcg/actuati 00 (six) Medical on inhaler hours as Branc h needed for Wheezing or Shortness of Breath. levalbutero 2020-09 Yes [id number] .63mg Inhale [facility] l 0.63 mg/3 1-09 0.63 mg 3 ity of mL 00:00: (three) [place] nebulizer 00 times Medical solution daily as Branch needed for Wheezing or Shortness of Breath. cyclobenzap 2020-09 Yes [id number] TAKE 1 [facility] rine 5 mg 1-09 TABLET BY ity o f tablet 00:00: MOUTH [place] 00 EVERY 8 Medical HOURS Branch NEEDED albuterol 2020-09 Yes [id number] 2{puff} Inhale 2 [facility] (PROAIR 1-09 Puffs ity of HFA) 90 00:00: every 6 [place] mcg/actuati 00 (six) Medical on inhaler hours as Branc h needed for Wheezing or Shortness of Breath. levalbutero 2020-09 Yes [id number] .63mg Inhale [facility] l 0.63 mg/3 1-09 0.63 mg 3 ity of mL 00:00: (three) [place] nebulizer 00 times Medical solution daily as Branch needed for Wheezing or Shortness of Breath. cyclobenzap 2020-09 Yes [id number] TAKE 1 [facility] rine 5 mg 1-09 TABLET BY ity o f tablet 00:00: MOUTH [place] 00 EVERY 8 Medical HOURS Branch NEEDED albuterol 2020-09 Yes [id number] 2{puff} Inhale 2 [facility] (PROAIR 1-09 Puffs ity of HFA) 90 00:00: every 6 [place] mcg/actuati 00 (six) Medical on inhaler hours as Branc h needed for Wheezing or Shortness of Breath. levalbutero 2020-09 Yes [id number] .63mg Inhale [facility] l 0.63 mg/3 1-09 0.63 mg 3 ity of mL 00:00: (three) [place] nebulizer 00 times Medical solution daily as Branch needed for Wheezing or Shortness of Breath. cyclobenzap 2020-09 Yes [id number] TAKE 1 [facility] rine 5 mg 1-09 TABLET BY ity o f tablet 00:00: MOUTH [place] 00 EVERY 8 Medical HOURS Branch NEEDED albuterol 2020-09 Yes [id number] 2{puff} Inhale 2 [facility] (PROAIR 1-09 Puffs ity of HFA) 90 00:00: every 6 [place] mcg/actuati 00 (six) Medical on inhaler hours as Branc h needed for Wheezing or Shortness of Breath. levalbutero 2020-09 Yes [id number] .63mg Inhale [facility] l 0.63 mg/3 1-09 0.63 mg 3 ity of mL 00:00: (three) [place] nebulizer 00 times Medical solution daily as Branch needed for Wheezing or Shortness of Breath. cyclobenzap 2020-09 Yes [id number] TAKE 1 [facility] rine 5 mg 1-09 TABLET BY ity o f tablet 00:00: MOUTH [place] 00 EVERY 8 Medical HOURS Branch NEEDED albuterol 2020-09 Yes [id number] 2{puff} Inhale 2 [facility] (PROAIR 1-09 Puffs ity of HFA) 90 00:00: every 6 [place] mcg/actuati 00 (six) Medical on inhaler hours as Branc h needed for Wheezing or Shortness of Breath. levalbutero 2020-09 Yes [id number] .63mg Inhale [facility] l 0.63 mg/3 1-09 0.63 mg 3 ity of mL 00:00: (three) [place] nebulizer 00 times Medical solution daily as Branch needed for Wheezing or Shortness of Breath. cyclobenzap 2020-09 Yes [id number] TAKE 1 [facility] rine 5 mg 1-09 TABLET BY ity o f tablet 00:00: MOUTH [place] 00 EVERY 8 Medical HOURS Branch NEEDED albuterol 2020-09 Yes [id number] 2{puff} Inhale 2 [facility] (PROAIR 1-09 Puffs ity of HFA) 90 00:00: every 6 [place] mcg/actuati 00 (six) Medical on inhaler hours as Branc h needed for Wheezing or Shortness of Breath. rosuvastati 2020-09 Yes [id number] 10mg Take 1 [facility] n 10 mg 1-09 tablet by ity of tablet 00:00: mouth at [place] 00 bedtime. Medical Branch cyanocobala 2020-09 Yes [id number] 1000ug 1 mL by [facility] min 1,000 1-09 Intramuscu ity of mcg/mL 00:00: lar route [place] injection 00 every 2 Medical (two) Branch weeks. levothyroxi 2020-09 Yes [id number] 50ug Take 1 [facility] ne 50 mcg 1-09 tablet by ity o f tablet 00:00: mouth [place] 00 every Medical morning. Branch fluticasone 2020-09 Yes [id number] 2{puff} Inhale 2 [facility] propionate 1-09 Puffs ity of (FLOVENT 00:00: every 12 [place] HFA) 110 00 (twelve) Medical mcg/actuati hours. Branch on inhaler Rinse mouth after each use. levalbutero 2020-09 Yes [id number] .63mg Inhale [facility] l 0.63 mg/3 1-09 0.63 mg 3 ity of mL 00:00: (three) [place] nebulizer 00 times Medical solution daily as Branch needed for Wheezing or Shortness of Breath. losartan 50 2020-09 Yes [id number] 50mg Take 1 [facility] mg tablet 1-09 tablet by ity o f 00:00: mouth 2 [place] 00 (two) Medical times Branch daily. clotrimazol 2020-09 Yes [id number] Apply to [facility] e-betametha 1-09 area(s) 2 ity of sone cream 00:00: (two) [place] 00 times Medical daily. Branch cyclobenzap 2020-09 Yes [id number] TAKE 1 [facility] rine 5 mg 1-09 TABLET BY ity o f tablet 00:00: MOUTH [place] 00 EVERY 8 Medical HOURS Branch NEEDED econazole 2020-09 Yes [id number] Apply to [facility] nitrate 1 % 1-09 area(s) 2 ity of cream 00:00: (two) [place] 00 times Medical daily. Branch albuterol 2020-09 Yes [id number] 2{puff} Inhale 2 [facility] (PROAIR 1-09 Puffs ity of HFA) 90 00:00: every 6 [place] mcg/actuati 00 (six) Medical on inhaler hours as Branc h needed for Wheezing or Shortness of Breath. triamcinolo 2020-09 Yes [id number] Apply to [facility] ne 0.025 % -09 area(s) 3 ity of ointment 00:00: (three) [place] 00 times Medical daily. For Branch itching diltiazem 2020-09 Yes [id number] 120mg Take 1 [facility] (CARTIA XT) -09 capsule by it y of 120 mg 24 00:00: mouth 2 [place] hr capsule 00 (two) Medical times Branch daily. rosuvastati 2020-09 Yes [id number] 10mg Take 1 [facility] n 10 mg 1-09 tablet by ity of tablet 00:00: mouth at [place] 00 bedtime. Medical Branch cyanocobala 2020-09 Yes [id number] 1000ug 1 mL by [facility] min 1,000 1-09 Intramuscu ity of mcg/mL 00:00: lar route [place] injection 00 every 2 Medical (two) Branch weeks. levothyroxi 2020-09 Yes [id number] 50ug Take 1 [facility] ne 50 mcg 1-09 tablet by ity o f tablet 00:00: mouth [place] 00 every Medical morning. Branch fluticasone 2020-09 Yes [id number] 2{puff} Inhale 2 [facility] propionate 1-09 Puffs ity of (FLOVENT 00:00: every 12 [place] HFA) 110 00 (twelve) Medical mcg/actuati hours. Branch on inhaler Rinse mouth after each use. levalbutero 2020-09 Yes [id number] .63mg Inhale [facility] l 0.63 mg/3 1-09 0.63 mg 3 ity of mL 00:00: (three) [place] nebulizer 00 times Medical solution daily as Branch needed for Wheezing or Shortness of Breath. losartan 50 2020-09 Yes [id number] 50mg Take 1 [facility] mg tablet 1-09 tablet by ity o f 00:00: mouth 2 [place] 00 (two) Medical times Branch daily. clotrimazol 2020-09 Yes [id number] Apply to [facility] e-betametha -09 area(s) 2 ity of sone cream 00:00: (two) [place] 00 times Medical daily. Branch cyclobenzap 2020-09 Yes [id number] TAKE 1 [facility] rine 5 mg -09 TABLET BY ity o f tablet 00:00: MOUTH [place] 00 EVERY 8 Medical HOURS Branch NEEDED econazole 2020-09 Yes [id number] Apply to [facility] nitrate 1 % 10-04 area(s) 2 ity of cream 00:00: (two) [place] 00 times Medical daily. Branch albuterol 2020-09 Yes [id number] 2{puff} Inhale 2 [facility] (PROAIR 1-09 Puffs ity of HFA) 90 00:00: every 6 [place] mcg/actuati 00 (six) Medical on inhaler hours as Branc h needed for Wheezing or Shortness of Breath. triamcinolo 2020-09 Yes [id number] Apply to [facility] ne 0.025 % 10-04 area(s) 3 ity of ointment 00:00: (three) [place] 00 times Medical daily. For Branch itching diltiazem 2020-09 Yes [id number] 120mg Take 1 [facility] (CARTIA XT) -09 capsule by it y of 120 mg 24 00:00: mouth 2 [place] hr capsule 00 (two) Medical times Branch daily. cyanocobala 2020-09 Yes [id number] 1000ug 1 mL by [facility] min 1,000 1-09 Intramuscu ity of mcg/mL 00:00: lar route [place] injection 00 every 2 Medical (two) Branch weeks. levothyroxi 2020-09 Yes [id number] 50ug Take 1 [facility] ne 50 mcg 1-09 tablet by ity o f tablet 00:00: mouth [place] 00 every Medical morning. Branch fluticasone 2020-09 Yes [id number] 2{puff} Inhale 2 [facility] propionate 1-09 Puffs ity of (FLOVENT 00:00: every 12 [place] HFA) 110 00 (twelve) Medical mcg/actuati hours. Branch on inhaler Rinse mouth after each use. levalbutero 2020-09 Yes [id number] .63mg Inhale [facility] l 0.63 mg/3 1-09 0.63 mg 3 ity of mL 00:00: (three) [place] nebulizer 00 times Medical solution daily as Branch needed for Wheezing or Shortness of Breath. losartan 50 2020-09 Yes [id number] 50mg Take 1 [facility] mg tablet -09 tablet by ity o f 00:00: mouth 2 [place] 00 (two) Medical times Branch daily. clotrimazol 2020-09 Yes [id number] Apply to [facility] e-betametha -09 area(s) 2 ity of sone cream 00:00: (two) [place] 00 times Medical daily. Branch cyclobenzap 2020-09 Yes [id number] TAKE 1 [facility] rine 5 mg -09 TABLET BY ity o f tablet 00:00: MOUTH [place] 00 EVERY 8 Medical HOURS Branch NEEDED econazole 2020-09 Yes [id number] Apply to [facility] nitrate 1 % 09 area(s) 2 ity of cream 00:00: (two) [place] 00 times Medical daily. Branch albuterol 2020-09 Yes [id number] 2{puff} Inhale 2 [facility] (PROAIR 1-09 Puffs ity of HFA) 90 00:00: every 6 [place] mcg/actuati 00 (six) Medical on inhaler hours as Branc h needed for Wheezing or Shortness of Breath. triamcinolo 2020-09 Yes [id number] Apply to [facility] ne 0.025 % 10-04 area(s) 3 ity of ointment 00:00: (three) [place] 00 times Medical daily. For Branch itching diltiazem 2020-09 Yes [id number] 120mg Take 1 [facility] (CARTIA XT) -09 capsule by it y of 120 mg 24 00:00: mouth 2 [place] hr capsule 00 (two) Medical times Branch daily. cyanocobala 2020-09 Yes [id number] 1000ug 1 mL by [facility] min 1,000 -09 Intramuscu ity of mcg/mL 00:00: lar route [place] injection 00 every 2 Medical (two) Branch weeks. levothyroxi 2020-09 Yes [id number] 50ug Take 1 [facility] ne 50 mcg 1-09 tablet by ity o f tablet 00:00: mouth [place] 00 every Medical morning. Branch fluticasone 2020-09 Yes [id number] 2{puff} Inhale 2 [facility] propionate 1-09 Puffs ity of (FLOVENT 00:00: every 12 [place] HFA) 110 00 (twelve) Medical mcg/actuati hours. Branch on inhaler Rinse mouth after each use. levalbutero 2020-09 Yes [id number] .63mg Inhale [facility] l 0.63 mg/3 1-09 0.63 mg 3 ity of mL 00:00: (three) [place] nebulizer 00 times Medical solution daily as Branch needed for Wheezing or Shortness of Breath. losartan 50 2020-09 Yes [id number] 50mg Take 1 [facility] mg tablet -09 tablet by ity o f 00:00: mouth 2 [place] 00 (two) Medical times Branch daily. clotrimazol 2020-09 Yes [id number] Apply to [facility] e-betametha 09 area(s) 2 ity of sone cream 00:00: (two) [place] 00 times Medical daily. Branch cyclobenzap 2020-09 Yes [id number] TAKE 1 [facility] rine 5 mg -09 TABLET BY ity o f tablet 00:00: MOUTH [place] 00 EVERY 8 Medical HOURS Branch NEEDED econazole 2020-09 Yes [id number] Apply to [facility] nitrate 1 % 10-04 area(s) 2 ity of cream 00:00: (two) [place] 00 times Medical daily. Branch albuterol 2020-09 Yes [id number] 2{puff} Inhale 2 [facility] (PROAIR 1-09 Puffs ity of HFA) 90 00:00: every 6 [place] mcg/actuati 00 (six) Medical on inhaler hours as Branc h needed for Wheezing or Shortness of Breath. triamcinolo 2020-09 Yes [id number] Apply to [facility] ne 0.025 % -09 area(s) 3 ity of ointment 00:00: (three) [place] 00 times Medical daily. For Branch itching diltiazem 2020-09 Yes [id number] 120mg Take 1 [facility] (CARTIA XT) -09 capsule by it y of 120 mg 24 00:00: mouth 2 [place] hr capsule 00 (two) Medical times Branch daily. cyanocobala 2020-09 Yes [id number] 1000ug 1 mL by [facility] min 1,000 1-09 Intramuscu ity of mcg/mL 00:00: lar route [place] injection 00 every 2 Medical (two) Branch weeks. levothyroxi 2020-09 Yes [id number] 50ug Take 1 [facility] ne 50 mcg 1-09 tablet by ity o f tablet 00:00: mouth [place] 00 every Medical morning. Branch fluticasone 2020-09 Yes [id number] 2{puff} Inhale 2 [facility] propionate 1-09 Puffs ity of (FLOVENT 00:00: every 12 [place] HFA) 110 00 (twelve) Medical mcg/actuati hours. Branch on inhaler Rinse mouth after each use. levalbutero 2020-09 Yes [id number] .63mg Inhale [facility] l 0.63 mg/3 1-09 0.63 mg 3 ity of mL 00:00: (three) [place] nebulizer 00 times Medical solution daily as Branch needed for Wheezing or Shortness of Breath. losartan 50 2020-09 Yes [id number] 50mg Take 1 [facility] mg tablet 1-09 tablet by ity o f 00:00: mouth 2 [place] 00 (two) Medical times Branch daily. clotrimazol 2020-09 Yes [id number] Apply to [facility] e-betametha -09 area(s) 2 ity of sone cream 00:00: (two) [place] 00 times Medical daily. Branch cyclobenzap 2020-09 Yes [id number] TAKE 1 [facility] rine 5 mg 1-09 TABLET BY ity o f tablet 00:00: MOUTH [place] 00 EVERY 8 Medical HOURS Branch NEEDED econazole 2020-09 Yes [id number] Apply to [facility] nitrate 1 % 1-09 area(s) 2 ity of cream 00:00: (two) [place] 00 times Medical daily. Branch albuterol 2020-09 Yes [id number] 2{puff} Inhale 2 [facility] (PROAIR 1-09 Puffs ity of HFA) 90 00:00: every 6 [place] mcg/actuati 00 (six) Medical on inhaler hours as Branc h needed for Wheezing or Shortness of Breath. triamcinolo 2020-09 Yes [id number] Apply to [facility] ne 0.025 % 10-04 area(s) 3 ity of ointment 00:00: (three) [place] 00 times Medical daily. For Branch itching diltiazem 2020-09 Yes [id number] 120mg Take 1 [facility] (CARTIA XT) 10-04 capsule by it y of 120 mg 24 00:00: mouth 2 [place] hr capsule 00 (two) Medical times Branch daily. cyanocobala 2020-09 Yes [id number] 1000ug 1 mL by [facility] min 1,000 09 Intramuscu ity of mcg/mL 00:00: lar route [place] injection 00 every 2 Medical (two) Branch weeks. levothyroxi 2020-09 Yes [id number] 50ug Take 1 [facility] ne 50 mcg 10-04 tablet by ity o f tablet 00:00: mouth [place] 00 every Medical morning. Branch fluticasone 2020-09 Yes [id number] 2{puff} Inhale 2 [facility] propionate 09 Puffs ity of (FLOVENT 00:00: every 12 [place] HFA) 110 00 (twelve) Medical mcg/actuati hours. Branch on inhaler Rinse mouth after each use. levalbutero 2020-09 Yes [id number] .63mg Inhale [facility] l 0.63 mg/3 -09 0.63 mg 3 ity of mL 00:00: (three) [place] nebulizer 00 times Medical solution daily as Branch needed for Wheezing or Shortness of Breath. losartan 50 2020-09 Yes [id number] 50mg Take 1 [facility] mg tablet 09 tablet by ity o f 00:00: mouth 2 [place] 00 (two) Medical times Branch daily. clotrimazol 2020-09 Yes [id number] Apply to [facility] e-betametha 10-04 area(s) 2 ity of sone cream 00:00: (two) [place] 00 times Medical daily. Branch cyclobenzap 2020-09 Yes [id number] TAKE 1 [facility] rine 5 mg -09 TABLET BY ity o f tablet 00:00: MOUTH [place] 00 EVERY 8 Medical HOURS Branch NEEDED econazole 2020-09 Yes [id number] Apply to [facility] nitrate 1 % 10-04 area(s) 2 ity of cream 00:00: (two) [place] 00 times Medical daily. Branch albuterol 2020-09 Yes [id number] 2{puff} Inhale 2 [facility] (PROAIR 1-09 Puffs ity of HFA) 90 00:00: every 6 [place] mcg/actuati 00 (six) Medical on inhaler hours as Branc h needed for Wheezing or Shortness of Breath. triamcinolo 2020-09 Yes [id number] Apply to [facility] ne 0.025 % 09 area(s) 3 ity of ointment 00:00: (three) [place] 00 times Medical daily. For Branch itching diltiazem 2020-09 Yes [id number] 120mg Take 1 [facility] (CARTIA XT) 09 capsule by it y of 120 mg 24 00:00: mouth 2 [place] hr capsule 00 (two) Medical times Branch daily. cyanocobala 2020-09 Yes [id number] 1000ug 1 mL by [facility] min 1,000 09 Intramuscu ity of mcg/mL 00:00: lar route [place] injection 00 every 2 Medical (two) Branch weeks. levothyroxi 2020-09 Yes [id number] 50ug Take 1 [facility] ne 50 mcg 10-04 tablet by ity o f tablet 00:00: mouth [place] 00 every Medical morning. Branch fluticasone 2020-09 Yes [id number] 2{puff} Inhale 2 [facility] propionate 1-09 Puffs ity of (FLOVENT 00:00: every 12 [place] HFA) 110 00 (twelve) Medical mcg/actuati hours. Branch on inhaler Rinse mouth after each use. levalbutero 2020-09 Yes [id number] .63mg Inhale [facility] l 0.63 mg/3 -09 0.63 mg 3 ity of mL 00:00: (three) [place] nebulizer 00 times Medical solution daily as Branch needed for Wheezing or Shortness of Breath. losartan 50 2020-09 Yes [id number] 50mg Take 1 [facility] mg tablet -09 tablet by ity o f 00:00: mouth 2 [place] 00 (two) Medical times Branch daily. clotrimazol 2020-09 Yes [id number] Apply to [facility] e-betametha 09 area(s) 2 ity of sone cream 00:00: (two) [place] 00 times Medical daily. Branch cyclobenzap 2020-09 Yes [id number] TAKE 1 [facility] rine 5 mg 1-09 TABLET BY ity o f tablet 00:00: MOUTH [place] 00 EVERY 8 Medical HOURS Branch NEEDED econazole 2020-09 Yes [id number] Apply to [facility] nitrate 1 % 1-09 area(s) 2 ity of cream 00:00: (two) [place] 00 times Medical daily. Branch albuterol 2020-09 Yes [id number] 2{puff} Inhale 2 [facility] (PROAIR 1-09 Puffs ity of HFA) 90 00:00: every 6 [place] mcg/actuati 00 (six) Medical on inhaler hours as Branc h needed for Wheezing or Shortness of Breath. triamcinolo 2020-09 Yes [id number] Apply to [facility] ne 0.025 % -09 area(s) 3 ity of ointment 00:00: (three) [place] 00 times Medical daily. For Branch itching diltiazem 2020-09 Yes [id number] 120mg Take 1 [facility] (CARTIA XT) 1-09 capsule by it y of 120 mg 24 00:00: mouth 2 [place] hr capsule 00 (two) Medical times Branch daily. cyanocobala 2020-09 Yes [id number] 1000ug 1 mL by [facility] min 1,000 1-09 Intramuscu ity of mcg/mL 00:00: lar route [place] injection 00 every 2 Medical (two) Branch weeks. levothyroxi 2020-09 Yes [id number] 50ug Take 1 [facility] ne 50 mcg 1-09 tablet by ity o f tablet 00:00: mouth [place] 00 every Medical morning. Branch fluticasone 2020-09 Yes [id number] 2{puff} Inhale 2 [facility] propionate 1-09 Puffs ity of (FLOVENT 00:00: every 12 [place] HFA) 110 00 (twelve) Medical mcg/actuati hours. Branch on inhaler Rinse mouth after each use. levalbutero 2020-09 Yes [id number] .63mg Inhale [facility] l 0.63 mg/3 1-09 0.63 mg 3 ity of mL 00:00: (three) [place] nebulizer 00 times Medical solution daily as Branch needed for Wheezing or Shortness of Breath. losartan 50 2020-09 Yes [id number] 50mg Take 1 [facility] mg tablet 1-09 tablet by ity o f 00:00: mouth 2 [place] 00 (two) Medical times Branch daily. clotrimazol 2020-09 Yes [id number] Apply to [facility] e-betametha 09 area(s) 2 ity of sone cream 00:00: (two) [place] 00 times Medical daily. Branch cyclobenzap 2020-09 Yes [id number] TAKE 1 [facility] rine 5 mg -09 TABLET BY ity o f tablet 00:00: MOUTH [place] 00 EVERY 8 Medical HOURS Branch NEEDED econazole 2020-09 Yes [id number] Apply to [facility] nitrate 1 % 09 area(s) 2 ity of cream 00:00: (two) [place] 00 times Medical daily. Branch albuterol 2020-09 Yes [id number] 2{puff} Inhale 2 [facility] (PROAIR 1-09 Puffs ity of HFA) 90 00:00: every 6 [place] mcg/actuati 00 (six) Medical on inhaler hours as Branc h needed for Wheezing or Shortness of Breath. triamcinolo 2020-09 Yes [id number] Apply to [facility] ne 0.025 % 10-04 area(s) 3 ity of ointment 00:00: (three) [place] 00 times Medical daily. For Branch itching diltiazem 2020-09 Yes [id number] 120mg Take 1 [facility] (CARTIA XT) 10-04 capsule by it y of 120 mg 24 00:00: mouth 2 [place] hr capsule 00 (two) Medical times Branch daily. cyanocobala 2020-09 Yes [id number] 1000ug 1 mL by [facility] min 1,000 09 Intramuscu ity of mcg/mL 00:00: lar route [place] injection 00 every 2 Medical (two) Branch weeks. levothyroxi 2020-09 Yes [id number] 50ug Take 1 [facility] ne 50 mcg -09 tablet by ity o f tablet 00:00: mouth [place] 00 every Medical morning. Branch fluticasone 2020-09 Yes [id number] 2{puff} Inhale 2 [facility] propionate 1-09 Puffs ity of (FLOVENT 00:00: every 12 [place] HFA) 110 00 (twelve) Medical mcg/actuati hours. Branch on inhaler Rinse mouth after each use. levalbutero 2020-09 Yes [id number] .63mg Inhale [facility] l 0.63 mg/3 1-09 0.63 mg 3 ity of mL 00:00: (three) [place] nebulizer 00 times Medical solution daily as Branch needed for Wheezing or Shortness of Breath. losartan 50 2020-09 Yes [id number] 50mg Take 1 [facility] mg tablet -09 tablet by ity o f 00:00: mouth 2 [place] 00 (two) Medical times Branch daily. clotrimazol 2020-09 Yes [id number] Apply to [facility] e-betametha 10-04 area(s) 2 ity of sone cream 00:00: (two) [place] 00 times Medical daily. Branch cyclobenzap 2020-09 Yes [id number] TAKE 1 [facility] rine 5 mg 10-04 TABLET BY ity o f tablet 00:00: MOUTH [place] 00 EVERY 8 Medical HOURS Branch NEEDED econazole 2020-09 Yes [id number] Apply to [facility] nitrate 1 % 10-04 area(s) 2 ity of cream 00:00: (two) [place] 00 times Medical daily. Branch albuterol 2020-09 Yes [id number] 2{puff} Inhale 2 [facility] (PROAIR -09 Puffs ity of HFA) 90 00:00: every 6 [place] mcg/actuati 00 (six) Medical on inhaler hours as Branc h needed for Wheezing or Shortness of Breath. triamcinolo 2020-09 Yes [id number] Apply to [facility] ne 0.025 % 10-04 area(s) 3 ity of ointment 00:00: (three) [place] 00 times Medical daily. For Branch itching diltiazem 2020-09 Yes [id number] 120mg Take 1 [facility] (CARTIA XT) 10-04 capsule by it y of 120 mg 24 00:00: mouth 2 [place] hr capsule 00 (two) Medical times Branch daily. cyanocobala 2020-09 Yes [id number] 1000ug 1 mL by [facility] min 1,000 09 Intramuscu ity of mcg/mL 00:00: lar route [place] injection 00 every 2 Medical (two) Branch weeks. levothyroxi 2020-09 Yes [id number] 50ug Take 1 [facility] ne 50 mcg - tablet by ity o f tablet 00:00: mouth [place] 00 every Medical morning. Branch fluticasone 2020-09 Yes [id number] 2{puff} Inhale 2 [facility] propionate 1-09 Puffs ity of (FLOVENT 00:00: every 12 [place] HFA) 110 00 (twelve) Medical mcg/actuati hours. Branch on inhaler Rinse mouth after each use. levalbutero 2020-09 Yes [id number] .63mg Inhale [facility] l 0.63 mg/3 1-09 0.63 mg 3 ity of mL 00:00: (three) [place] nebulizer 00 times Medical solution daily as Branch needed for Wheezing or Shortness of Breath. losartan 50 2020-09 Yes [id number] 50mg Take 1 [facility] mg tablet -09 tablet by ity o f 00:00: mouth 2 [place] 00 (two) Medical times Branch daily. clotrimazol 2020-09 Yes [id number] Apply to [facility] e-betametha -09 area(s) 2 ity of sone cream 00:00: (two) [place] 00 times Medical daily. Branch cyclobenzap 2020-09 Yes [id number] TAKE 1 [facility] rine 5 mg -09 TABLET BY ity o f tablet 00:00: MOUTH [place] 00 EVERY 8 Medical HOURS Branch NEEDED econazole 2020-09 Yes [id number] Apply to [facility] nitrate 1 % 09 area(s) 2 ity of cream 00:00: (two) [place] 00 times Medical daily. Branch albuterol 2020-09 Yes [id number] 2{puff} Inhale 2 [facility] (PROAIR 1-09 Puffs ity of HFA) 90 00:00: every 6 [place] mcg/actuati 00 (six) Medical on inhaler hours as Branc h needed for Wheezing or Shortness of Breath. triamcinolo 2020-09 Yes [id number] Apply to [facility] ne 0.025 % 09 area(s) 3 ity of ointment 00:00: (three) [place] 00 times Medical daily. For Branch itching diltiazem 2020-09 Yes [id number] 120mg Take 1 [facility] (CARTIA XT) -09 capsule by it y of 120 mg 24 00:00: mouth 2 [place] hr capsule 00 (two) Medical times Branch daily. cyanocobala 2020-09 Yes [id number] 1000ug 1 mL by [facility] min 1,000 -09 Intramuscu ity of mcg/mL 00:00: lar route [place] injection 00 every 2 Medical (two) Branch weeks. levothyroxi 2020-09 Yes [id number] 50ug Take 1 [facility] ne 50 mcg 1-09 tablet by ity o f tablet 00:00: mouth [place] 00 every Medical morning. Branch fluticasone 2020-09 Yes [id number] 2{puff} Inhale 2 [facility] propionate 1-09 Puffs ity of (FLOVENT 00:00: every 12 [place] HFA) 110 00 (twelve) Medical mcg/actuati hours. Branch on inhaler Rinse mouth after each use. levalbutero 2020-09 Yes [id number] .63mg Inhale [facility] l 0.63 mg/3 1-09 0.63 mg 3 ity of mL 00:00: (three) [place] nebulizer 00 times Medical solution daily as Branch needed for Wheezing or Shortness of Breath. losartan 50 2020-09 Yes [id number] 50mg Take 1 [facility] mg tablet 1-09 tablet by ity o f 00:00: mouth 2 [place] 00 (two) Medical times Branch daily. clotrimazol 2020-09 Yes [id number] Apply to [facility] e-betametha 1-09 area(s) 2 ity of sone cream 00:00: (two) [place] 00 times Medical daily. Branch cyclobenzap 2020-09 Yes [id number] TAKE 1 [facility] rine 5 mg 1-09 TABLET BY ity o f tablet 00:00: MOUTH [place] 00 EVERY 8 Medical HOURS Branch NEEDED econazole 2020-09 Yes [id number] Apply to [facility] nitrate 1 % -09 area(s) 2 ity of cream 00:00: (two) [place] 00 times Medical daily. Branch albuterol 2020-09 Yes [id number] 2{puff} Inhale 2 [facility] (PROAIR 1-09 Puffs ity of HFA) 90 00:00: every 6 [place] mcg/actuati 00 (six) Medical on inhaler hours as Branc h needed for Wheezing or Shortness of Breath. triamcinolo 2020-09 Yes [id number] Apply to [facility] ne 0.025 % 1-09 area(s) 3 ity of ointment 00:00: (three) [place] 00 times Medical daily. For Branch itching diltiazem 2020-09 Yes [id number] 120mg Take 1 [facility] (CARTIA XT) 10-04 capsule by it y of 120 mg 24 00:00: mouth 2 [place] hr capsule 00 (two) Medical times Branch daily. cyanocobala 2020-09- No [id number] 1000ug 1 mL by [facility] min 1,000 10-04 Intramuscu ity of mcg/mL 00:00: 00:00 lar route [place] injection 00 :00 every 2 Medical (two) Branch weeks. fluticasone 2020-09- No [id number] 2{puff} Inhale 2 [facility] propionate 10-04 Puffs ity of (FLOVENT 00:00: 00:00 every 12 [place] HFA) 110 00 :00 (twelve) Medical mcg/actuati hours. Branch on inhaler Rinse mouth after each use. clotrimazol 2020-09- No [id number] Apply to [facility] e-betametha 10-04 area(s) 2 it y of sone cream 00:00: 00:00 (two) [place] 00 :00 times Medical daily. Branch econazole 2020-09- No [id number] Apply to [facility] nitrate 1 % 10-04 area(s) 2 it y of cream 00:00: 00:00 (two) [place] 00 :00 times Medical daily. Branch triamcinolo 2020-09- No [id number] Apply to [facility] ne 0.025 % 10-04 area(s) 3 ity of ointment 00:00: 00:00 (three) [place] 00 :00 times Medical daily. For Branch itching fluticasone 2020-09- No [id number] 2{puff} Inhale 2 [facility] propionate 10-04 Puffs ity of (FLOVENT 00:00: 00:00 every 12 [place] HFA[place] 110 00 :00 (twelve) Medical mcg/actuati hours. Branch on inhaler Rinse mouth after each use. clotrimazol 2020-09- No [id number] Apply to [facility] e-betametha 10-04 area(s) 2 it y of sone cream 00:00: 00:00 (two) [place] 00 :00 times Medical daily. Branch econazole 2020-09- No [id number] Apply to [facility] nitrate 1 % 10-04 area(s) 2 it y of cream 00:00: 00:00 (two) [place] 00 :00 times Medical daily. Branch triamcinolo 2020-09- No [id number] Apply to [facility] ne 0.025 % 10-04 area(s) 3 ity of ointment 00:00: 00:00 (three) [place] 00 :00 times Medical daily. For Branch itching levothyroxi 2020-09- No [id number] 50ug Take 1 [facility] ne 50 mcg 10-04 tablet by ity of tablet 00:00: 00:00 mouth [place] 00 :00 every Medical morning. Branch losartan 50 2020-09- No [id number] 50mg Take 1 [facility] mg tablet 10-04 tablet by ity of 00:00: 00:00 mouth 2 [place] 00 :00 (two) Medical times Branch daily. diltiazem 2020-09- No [id number] 120mg Take 1 [facility] (CARTIA XT) 10-04 capsule by i ty of 120 mg 24 00:00: 00:00 mouth 2 [place] hr capsule 00 :00 (two) Medical times Branch daily. rosuvastati 2020-09- No [id number] 10mg Take 1 [facility] n 10 mg 10-04 tablet by ity of tablet 00:00: 00:00 mouth at [place] 00 :00 bedtime. Medical Branch rosuvastati 2020-09- No [id number] 10mg Take 1 [facility] n 10 mg 10-04 tablet by ity of tablet 00:00: 00:00 mouth at [place] 00 :00 bedtime. Medical Branch proMETHazin 2019-09 [...] TABLET BY ity of tablet 00:00: MOUTH [place] 00 EVERY 6 Medical HOURS Branch NEEDED [...] 120 1-16 ity of mg Tab 00:00: [place] 00 Medical Branch Ginkgo 2019-0 Yes [facility] [...] [place] 00 Medical Branch FERROUS 2018-0 Yes [id number] TAKE ONE [facility] vers SULFATE 325 8-13 TABLET BY ity of mg (65 mg 00:00: MOUTH [place] iron) 00 THREE Medical tablet TIMES Branch DAILY WITH MEALS FERROUS Yes [id number] TAKE ONE [facility] vers SULFATE 325 8-13 TABLET BY ity of mg (65 mg 00:00: MOUTH [place] iron) 00 THREE Medical tablet TIMES Branch DAILY WITH MEALS FERROUS Yes [id number] TAKE ONE [facility] vers SULFATE 325 8-13 TABLET BY ity of mg (65 mg 00:00: MOUTH [place] iron) 00 THREE Medical tablet TIMES Branch DAILY WITH MEALS FERROUS Yes [id number] TAKE ONE [facility] vers SULFATE 325 8-13 TABLET BY ity of mg (65 mg 00:00: MOUTH [place] iron) 00 THREE Medical tablet TIMES Branch DAILY WITH MEALS FERROUS Yes [id number] TAKE ONE [facility] vers SULFATE 325 8-13 TABLET BY ity of mg (65 mg 00:00: MOUTH [place] iron) 00 THREE Medical tablet TIMES Branch DAILY WITH MEALS FERROUS Yes [id number] TAKE ONE [facility] vers SULFATE 325 8-13 TABLET BY ity of mg (65 mg 00:00: MOUTH [place] iron) 00 THREE Medical tablet TIMES Branch DAILY WITH MEALS FERROUS Yes [id number] TAKE ONE [facility] vers SULFATE 325 8-13 TABLET BY ity of mg (65 mg 00:00: MOUTH [place] iron) 00 THREE Medical tablet TIMES Branch DAILY WITH MEALS FERROUS Yes [id number] TAKE ONE [facility] vers SULFATE 325 8-13 TABLET BY ity of mg (65 mg 00:00: MOUTH [place] iron) 00 THREE Medical tablet TIMES Branch DAILY WITH MEALS FERROUS Yes [id number] TAKE ONE [facility] vers SULFATE 325 8-13 TABLET BY ity of mg (65 mg 00:00: MOUTH [place] iron) 00 THREE Medical tablet TIMES Branch DAILY WITH MEALS FERROUS Yes [id number] TAKE ONE [facility] vers SULFATE 325 8-13 TABLET BY ity of mg (65 mg 00:00: MOUTH [place] iron) 00 THREE Medical tablet TIMES Branch DAILY WITH MEALS FERROUS Yes [id number] TAKE ONE [facility] vers SULFATE 325 8-13 TABLET BY ity of mg (65 mg 00:00: MOUTH [place] iron) 00 THREE Medical tablet TIMES Branch DAILY WITH MEALS FERROUS Yes [id number] TAKE ONE [facility] vers SULFATE 325 8-13 TABLET BY ity of mg (65 mg 00:00: MOUTH [place] iron) 00 THREE Medical tablet TIMES Branch DAILY WITH MEALS FERROUS Yes [id number] TAKE ONE [facility] vers SULFATE 325 8-13 TABLET BY ity of mg (65 mg 00:00: MOUTH [place] iron) 00 THREE Medical tablet TIMES Branch DAILY WITH MEALS FERROUS Yes [id number] TAKE ONE [facility] vers SULFATE 325 8-13 TABLET BY ity of mg (65 mg 00:00: MOUTH [place] iron) 00 THREE Medical tablet TIMES Branch DAILY WITH MEALS FERROUS Yes [id number] TAKE ONE [facility] vers SULFATE 325 8-13 TABLET BY ity of mg (65 mg 00:00: MOUTH [place] iron) 00 THREE Medical tablet TIMES Branch DAILY WITH MEALS FERROUS Yes [id number] TAKE ONE [facility] vers SULFATE 325 8-13 TABLET BY ity of mg (65 mg 00:00: MOUTH [place] iron) 00 THREE Medical tablet TIMES Branch DAILY WITH MEALS FERROUS Yes [id number] TAKE ONE [facility] vers SULFATE 325 8-13 TABLET BY ity of mg (65 mg 00:00: MOUTH [place] iron) 00 THREE Medical tablet TIMES Branch DAILY WITH MEALS FERROUS Yes [id number] TAKE ONE [facility] vers SULFATE 325 8-13 TABLET BY ity of mg (65 mg 00:00: MOUTH [place] iron) 00 THREE Medical tablet TIMES Branch DAILY WITH MEALS FERROUS Yes [id number] TAKE ONE [facility] vers SULFATE 325 8-13 TABLET BY ity of mg (65 mg 00:00: MOUTH [place] iron) 00 THREE Medical tablet TIMES Branch DAILY WITH MEALS FERROUS Yes [id number] TAKE ONE [facility] vers SULFATE 325 8-13 TABLET BY ity of mg (65 mg 00:00: MOUTH [place] iron) 00 THREE Medical tablet TIMES Branch DAILY WITH MEALS FERROUS Yes [id number] TAKE ONE [facility] vers SULFATE 325 8-13 TABLET BY ity of mg (65 mg 00:00: MOUTH [place] iron) 00 THREE Medical tablet TIMES Branch DAILY WITH MEALS FERROUS Yes [id number] TAKE ONE [facility] vers SULFATE 325 8-13 TABLET BY ity of mg (65 mg 00:00: MOUTH [place] iron) 00 THREE Medical tablet TIMES Branch DAILY WITH MEALS FERROUS Yes [id number] TAKE ONE [facility] vers SULFATE 325 8-13 TABLET BY ity of mg (65 mg 00:00: MOUTH [place] iron) 00 THREE Medical tablet TIMES Branch DAILY WITH MEALS FERROUS Yes [id number] TAKE ONE [facility] vers SULFATE 325 8-13 TABLET BY ity of mg (65 mg 00:00: MOUTH [place] iron) 00 THREE Medical tablet TIMES Branch DAILY WITH MEALS FERROUS Yes [id number] TAKE ONE [facility] vers SULFATE 325 8-13 TABLET BY ity of mg (65 mg 00:00: MOUTH [place] iron) 00 THREE Medical tablet TIMES Branch DAILY WITH MEALS FERROUS Yes [id number] TAKE ONE [facility] vers SULFATE 325 8-13 TABLET BY ity of mg (65 mg 00:00: MOUTH [place] iron) 00 THREE Medical tablet TIMES Branch DAILY WITH MEALS FERROUS Yes [id number] TAKE ONE [facility] vers SULFATE 325 8-13 TABLET BY ity of mg (65 mg 00:00: MOUTH [place] iron) 00 THREE Medical tablet TIMES Branch DAILY WITH MEALS FERROUS Yes [id number] TAKE ONE [facility] vers SULFATE 325 8-13 TABLET BY ity of mg (65 mg 00:00: MOUTH [place] iron) 00 THREE Medical tablet TIMES Branch DAILY WITH MEALS FERROUS Yes [id number] TAKE ONE [facility] vers SULFATE 325 8-13 TABLET BY ity of mg (65 mg 00:00: MOUTH [place] iron) 00 THREE Medical tablet TIMES Branch DAILY WITH MEALS FERROUS Yes [id number] TAKE ONE [facility] vers SULFATE 325 8-13 TABLET BY ity of mg (65 mg 00:00: MOUTH [place] iron) 00 THREE Medical tablet TIMES Branch DAILY WITH MEALS FERROUS Yes [id number] TAKE ONE [facility] vers SULFATE 325 8-13 TABLET BY ity of mg (65 mg 00:00: MOUTH [place] iron) 00 THREE Medical tablet TIMES Branch DAILY WITH MEALS FERROUS Yes [id number] TAKE ONE [facility] vers SULFATE 325 8-13 TABLET BY ity of mg (65 mg 00:00: MOUTH [place] iron) 00 THREE Medical tablet TIMES Branch DAILY WITH MEALS FERROUS Yes [id number] TAKE ONE [facility] vers SULFATE 325 8-13 TABLET BY ity of mg (65 mg 00:00: MOUTH [place] iron) 00 THREE Medical tablet TIMES Branch DAILY WITH MEALS FERROUS Yes [id number] TAKE ONE [facility] vers SULFATE 325 8-13 TABLET BY ity of mg (65 mg 00:00: MOUTH [place] iron) 00 THREE Medical tablet TIMES Branch DAILY WITH MEALS FERROUS Yes [id number] TAKE ONE [facility] vers SULFATE 325 8-13 TABLET BY ity of mg (65 mg 00:00: MOUTH [place] iron) 00 THREE Medical tablet TIMES Branch DAILY WITH MEALS FERROUS Yes [id number] TAKE ONE [facility] vers SULFATE 325 8-13 TABLET BY ity of mg (65 mg 00:00: MOUTH [place] iron) 00 THREE Medical tablet TIMES Branch DAILY WITH MEALS FERROUS Yes [id number] TAKE ONE [facility] vers SULFATE 325 8-13 TABLET BY ity of mg (65 mg 00:00: MOUTH [place] iron) 00 THREE Medical tablet TIMES Branch DAILY WITH MEALS FERROUS Yes [id number] TAKE ONE [facility] vers SULFATE 325 8-13 TABLET BY ity of mg (65 mg 00:00: MOUTH [place] iron) 00 THREE Medical tablet TIMES Branch DAILY WITH MEALS FERROUS Yes [id number] TAKE ONE [facility] vers SULFATE 325 8-13 TABLET BY ity of mg (65 mg 00:00: MOUTH [place] iron) 00 THREE Medical tablet TIMES Branch DAILY WITH MEALS FERROUS Yes [id number] TAKE ONE [facility] vers SULFATE 325 8-13 TABLET BY ity of mg (65 mg 00:00: MOUTH [place] iron) 00 THREE Medical tablet TIMES Branch DAILY WITH MEALS FERROUS Yes [id number] TAKE ONE [facility] vers SULFATE 325 8-13 TABLET BY ity of mg (65 mg 00:00: MOUTH [place] iron) 00 THREE Medical tablet TIMES Branch DAILY WITH MEALS FERROUS Yes [id number] TAKE ONE [facility] vers SULFATE 325 8-13 TABLET BY ity of mg (65 mg 00:00: MOUTH [place] iron) 00 THREE Medical tablet TIMES Branch DAILY WITH MEALS FERROUS Yes [id number] TAKE ONE [facility] vers SULFATE 325 8-13 TABLET BY ity of mg (65 mg 00:00: MOUTH [place] iron) 00 THREE Medical tablet TIMES Branch DAILY WITH MEALS FERROUS Yes [id number] TAKE ONE [facility] vers SULFATE 325 8-13 TABLET BY ity of mg (65 mg 00:00: MOUTH [place] iron) 00 THREE Medical tablet TIMES Branch DAILY WITH MEALS FERROUS Yes [id number] TAKE ONE [facility] vers SULFATE 325 8-13 TABLET BY ity of mg (65 mg 00:00: MOUTH [place] iron) 00 THREE Medical tablet TIMES Branch DAILY WITH MEALS FERROUS Yes [id number] TAKE ONE [facility] vers SULFATE 325 8-13 TABLET BY ity of mg (65 mg 00:00: MOUTH [place] iron) 00 THREE Medical tablet TIMES Branch DAILY WITH MEALS FERROUS Yes [id number] TAKE ONE [facility] vers SULFATE 325 8-13 TABLET BY ity of mg (65 mg 00:00: MOUTH [place] iron) 00 THREE Medical tablet TIMES Branch DAILY WITH MEALS FERROUS Yes [id number] TAKE ONE [facility] vers SULFATE 325 8-13 TABLET BY ity of mg (65 mg 00:00: MOUTH [place] iron) 00 THREE Medical tablet TIMES Branch DAILY WITH MEALS FERROUS Yes [id number] TAKE ONE [facility] vers SULFATE 325 8-13 TABLET BY ity of mg (65 mg 00:00: MOUTH [place] iron) 00 THREE Medical tablet TIMES Branch DAILY WITH MEALS FERROUS Yes [id number] TAKE ONE [facility] vers SULFATE 325 8-13 TABLET BY ity of mg (65 mg 00:00: MOUTH [place] iron) 00 THREE Medical tablet TIMES Branch DAILY WITH MEALS FERROUS Yes [id number] TAKE ONE [facility] vers SULFATE 325 8-13 TABLET BY ity of mg (65 mg 00:00: MOUTH [place] iron) 00 THREE Medical tablet TIMES Branch DAILY WITH MEALS FERROUS Yes [id number] TAKE ONE [facility] vers SULFATE 325 8-13 TABLET BY ity of mg (65 mg 00:00: MOUTH [place] iron) 00 THREE Medical tablet TIMES Branch DAILY WITH MEALS FERROUS Yes [id number] TAKE ONE [facility] vers SULFATE 325 8-13 TABLET BY ity of mg (65 mg 00:00: MOUTH [place] iron) 00 THREE Medical tablet TIMES Branch DAILY WITH MEALS FERROUS Yes [id number] TAKE ONE [facility] vers SULFATE 325 8-13 TABLET BY ity of mg (65 mg 00:00: MOUTH [place] iron) 00 THREE Medical tablet TIMES Branch DAILY WITH MEALS FERROUS Yes [id number] TAKE ONE [facility] vers SULFATE 325 8-13 TABLET BY ity of mg (65 mg 00:00: MOUTH [place] iron) 00 THREE Medical tablet TIMES Branch DAILY WITH MEALS FERROUS Yes [id number] TAKE ONE [facility] vers SULFATE 325 8-13 TABLET BY ity of mg (65 mg 00:00: MOUTH [place] iron) 00 THREE Medical tablet TIMES Branch DAILY WITH MEALS FERROUS Yes [id number] TAKE ONE [facility] vers SULFATE 325 8-13 TABLET BY ity of mg (65 mg 00:00: MOUTH [place] iron) 00 THREE Medical tablet TIMES Branch DAILY WITH MEALS FERROUS Yes [id number] TAKE ONE [facility] vers SULFATE 325 8-13 TABLET BY ity of mg (65 mg 00:00: MOUTH [place] iron) 00 THREE Medical tablet TIMES Branch DAILY WITH MEALS FERROUS Yes [id number] TAKE ONE [facility] vers SULFATE 325 8-13 TABLET BY ity of mg (65 mg 00:00: MOUTH [place] iron) 00 THREE Medical tablet TIMES Branch DAILY WITH MEALS FERROUS Yes [id number] TAKE ONE [facility] vers SULFATE 325 8-13 TABLET BY ity of mg (65 mg 00:00: MOUTH [place] iron) 00 THREE Medical tablet TIMES Branch DAILY WITH MEALS FERROUS Yes [id number] TAKE ONE [facility] vers SULFATE 325 8-13 TABLET BY ity of mg (65 mg 00:00: MOUTH [place] iron) 00 THREE Medical tablet TIMES Branch DAILY WITH MEALS FERROUS Yes [id number] TAKE ONE [facility] vers SULFATE 325 8-13 TABLET BY ity of mg (65 mg 00:00: MOUTH [place] iron) 00 THREE Medical tablet TIMES Branch DAILY WITH MEALS FERROUS Yes [id number] TAKE ONE [facility] vers SULFATE 325 8-13 TABLET BY ity of mg (65 mg 00:00: MOUTH [place] iron) 00 THREE Medical tablet TIMES Branch DAILY WITH MEALS FERROUS Yes [id number] TAKE ONE [facility] vers SULFATE 325 8-13 TABLET BY ity of mg (65 mg 00:00: MOUTH [place] iron) 00 THREE Medical tablet TIMES Branch DAILY WITH MEALS FERROUS Yes [id number] TAKE ONE [facility] vers SULFATE 325 8-13 TABLET BY ity of mg (65 mg 00:00: MOUTH [place] iron) 00 THREE Medical tablet TIMES Branch DAILY WITH MEALS FERROUS Yes [id number] TAKE ONE [facility] vers SULFATE 325 8-13 TABLET BY ity of mg (65 mg 00:00: MOUTH [place] iron) 00 THREE Medical tablet TIMES Branch DAILY WITH MEALS FERROUS Yes [id number] TAKE ONE [facility] vers SULFATE 325 8-13 TABLET BY ity of mg (65 mg 00:00: MOUTH [place] iron) 00 THREE Medical tablet TIMES Branch DAILY WITH MEALS FERROUS Yes [id number] TAKE ONE [facility] vers SULFATE 325 8-13 TABLET BY ity of mg (65 mg 00:00: MOUTH [place] iron) 00 THREE Medical tablet TIMES Branch DAILY WITH MEALS FERROUS Yes [id number] TAKE ONE [facility] vers SULFATE 325 8-13 TABLET BY ity of mg (65 mg 00:00: MOUTH [place] iron) 00 THREE Medical tablet TIMES Branch DAILY WITH MEALS FERROUS Yes [id number] TAKE ONE [facility] vers SULFATE 325 8-13 TABLET BY ity of mg (65 mg 00:00: MOUTH [place] iron) 00 THREE Medical tablet TIMES Branch DAILY WITH MEALS FERROUS Yes [id number] TAKE ONE [facility] vers SULFATE 325 8-13 TABLET BY ity of mg (65 mg 00:00: MOUTH [place] iron) 00 THREE Medical tablet TIMES Branch DAILY WITH MEALS FERROUS Yes [id number] TAKE ONE [facility] vers SULFATE 325 8-13 TABLET BY ity of mg (65 mg 00:00: MOUTH [place] iron) 00 THREE Medical tablet TIMES Branch DAILY WITH MEALS FERROUS Yes [id number] TAKE ONE [facility] vers SULFATE 325 8-13 TABLET BY ity of mg (65 mg 00:00: MOUTH [place] iron) 00 THREE Medical tablet TIMES Branch DAILY WITH MEALS coQ10, Yes [id number] 1{capsu Take 1 U nivers ubiquinol, 1-16 le} capsule by ity of 100 mg Cap 00:00: mouth [place] 00 daily. Medical Branch coQ10, Yes [id number] 1{capsu Take 1 U nivers ubiquinol, 1-16 le} capsule by ity of 100 mg Cap 00:00: mouth [place] 00 daily. Medical Branch coQ10, Yes [id number] 1{capsu Take 1 U nivers ubiquinol, 1-16 le} capsule by ity of 100 mg Cap 00:00: mouth [place] 00 daily. Medical Branch coQ10, Yes [id number] 1{capsu Take 1 U nivers ubiquinol, 1-16 le} capsule by ity of 100 mg Cap 00:00: mouth [place] 00 daily. Medical Branch coQ10, Yes [id number] 1{capsu Take 1 U nivers ubiquinol, 1-16 le} capsule by ity of 100 mg Cap 00:00: mouth [place] 00 daily. Medical Branch coQ10, Yes [id number] 1{capsu Take 1 U nivers ubiquinol, 1-16 le} capsule by ity of 100 mg Cap 00:00: mouth [place] 00 daily. Medical Branch coQ10, Yes [id number] 1{capsu Take 1 U nivers ubiquinol, 1-16 le} capsule by ity of 100 mg Cap 00:00: mouth [place] 00 daily. Medical Branch coQ10, Yes [id number] 1{capsu Take 1 U nivers ubiquinol, 1-16 le} capsule by ity of 100 mg Cap 00:00: mouth [place] 00 daily. Medical Branch coQ10, Yes [id number] 1{capsu Take 1 U nivers ubiquinol, 1-16 le} capsule by ity of 100 mg Cap 00:00: mouth [place] 00 daily. Medical Branch coQ10, Yes [id number] 1{capsu Take 1 U nivers ubiquinol, 1-16 le} capsule by ity of 100 mg Cap 00:00: mouth [place] 00 daily. Medical Branch coQ10, Yes [id number] 1{capsu Take 1 U nivers ubiquinol, 1-16 le} capsule by ity of 100 mg Cap 00:00: mouth [place] 00 daily. Medical Branch coQ10, Yes [id number] 1{capsu Take 1 U nivers ubiquinol, 1-16 le} capsule by ity of 100 mg Cap 00:00: mouth [place] 00 daily. Medical Branch coQ10, Yes [id number] 1{capsu Take 1 U nivers ubiquinol, 1-16 le} capsule by ity of 100 mg Cap 00:00: mouth [place] 00 daily. Medical Branch coQ10, Yes [id number] 1{capsu Take 1 U nivers ubiquinol, 1-16 le} capsule by ity of 100 mg Cap 00:00: mouth [place] 00 daily. Medical Branch coQ10, Yes [id number] 1{capsu Take 1 U nivers ubiquinol, 1-16 le} capsule by ity of 100 mg Cap 00:00: mouth [place] 00 daily. Medical Branch coQ10, Yes [id number] 1{capsu Take 1 U nivers ubiquinol, 1-16 le} capsule by ity of 100 mg Cap 00:00: mouth [place] 00 daily. Medical Branch coQ10, Yes [id number] 1{capsu Take 1 U nivers ubiquinol, 1-16 le} capsule by ity of 100 mg Cap 00:00: mouth [place] 00 daily. Medical Branch coQ10, Yes [id number] 1{capsu Take 1 U nivers ubiquinol, 1-16 le} capsule by ity of 100 mg Cap 00:00: mouth [place] 00 daily. Medical Branch coQ10, Yes [id number] 1{capsu Take 1 U nivers ubiquinol, 1-16 le} capsule by ity of 100 mg Cap 00:00: mouth [place] 00 daily. Medical Branch coQ10, Yes [id number] 1{capsu Take 1 U nivers ubiquinol, 1-16 le} capsule by ity of 100 mg Cap 00:00: mouth [place] 00 daily. Medical Branch coQ10, Yes [id number] 1{capsu Take 1 U nivers ubiquinol, 1-16 le} capsule by ity of 100 mg Cap 00:00: mouth [place] 00 daily. Medical Branch coQ10, Yes [id number] 1{capsu Take 1 U nivers ubiquinol, 1-16 le} capsule by ity of 100 mg Cap 00:00: mouth [place] 00 daily. Medical Branch coQ10, Yes [id number] 1{capsu Take 1 U nivers ubiquinol, 1-16 le} capsule by ity of 100 mg Cap 00:00: mouth [place] 00 daily. Medical Branch coQ10, Yes [id number] 1{capsu Take 1 U nivers ubiquinol, 1-16 le} capsule by ity of 100 mg Cap 00:00: mouth [place] 00 daily. Medical Branch coQ10, Yes [id number] 1{capsu Take 1 U nivers ubiquinol, 1-16 le} capsule by ity of 100 mg Cap 00:00: mouth [place] 00 daily. Medical Branch coQ10, Yes [id number] 1{capsu Take 1 U nivers ubiquinol, 1-16 le} capsule by ity of 100 mg Cap 00:00: mouth [place] 00 daily. Medical Branch coQ10, Yes [id number] 1{capsu Take 1 U nivers ubiquinol, 1-16 le} capsule by ity of 100 mg Cap 00:00: mouth [place] 00 daily. Medical Branch coQ10, Yes [id number] 1{capsu Take 1 U nivers ubiquinol, 1-16 le} capsule by ity of 100 mg Cap 00:00: mouth [place] 00 daily. Medical Branch coQ10, Yes [id number] 1{capsu Take 1 U nivers ubiquinol, 1-16 le} capsule by ity of 100 mg Cap 00:00: mouth [place] 00 daily. Medical Branch coQ10, Yes [id number] 1{capsu Take 1 U nivers ubiquinol, 1-16 le} capsule by ity of 100 mg Cap 00:00: mouth [place] 00 daily. Medical Branch coQ10, Yes [id number] 1{capsu Take 1 U nivers ubiquinol, 1-16 le} capsule by ity of 100 mg Cap 00:00: mouth [place] 00 daily. Medical Branch coQ10, Yes [id number] 1{capsu Take 1 U nivers ubiquinol, 1-16 le} capsule by ity of 100 mg Cap 00:00: mouth [place] 00 daily. Medical Branch coQ10, Yes [id number] 1{capsu Take 1 U nivers ubiquinol, 1-16 le} capsule by ity of 100 mg Cap 00:00: mouth [place] 00 daily. Medical Branch coQ10, Yes [id number] 1{capsu Take 1 U nivers ubiquinol, 1-16 le} capsule by ity of 100 mg Cap 00:00: mouth [place] 00 daily. [facility] coQ10, Yes [id number] 1{capsu Take 1 U nivers ubiquinol, 1-16 le} capsule by ity of 100 mg Cap 00:00: mouth [place] 00 daily. [facility] coQ10, Yes [id number] 1{capsu Take 1 [facility] nivers ubiquinol, 1-16 le} capsule by ity of 100 mg Cap 00:00: mouth [place] 00 daily. [facility] coQ10, Yes [id number] 1{capsu Take 1 U nivers ubiquinol, 1-16 le} capsule by ity of 100 mg Cap 00:00: mouth [place] 00 daily. [facility] coQ10, Yes [id number] 1{capsu Take 1 U nivers ubiquinol, 1-16 le} capsule by ity of 100 mg Cap 00:00: mouth [place] 00 daily. [facility] coQ10, Yes [id number] 1{capsu Take 1 U nivers ubiquinol, 1-16 le} capsule by ity of 100 mg Cap 00:00: mouth [place] 00 daily. [facility] coQ10, Yes [id number] 1{capsu Take 1 U nivers ubiquinol, 1-16 le} capsule by ity of 100 mg Cap 00:00: mouth [place] 00 daily. [facility] coQ10, Yes [id number] 1{capsu Take 1 U nivers ubiquinol, 1-16 le} capsule by ity of 100 mg Cap 00:00: mouth [place] 00 daily. [facility] coQ10, Yes [id number] 1{capsu Take 1 U nivers ubiquinol, 1-16 le} capsule by ity of 100 mg Cap 00:00: mouth [place] 00 daily. [facility] coQ10, Yes [id number] 1{capsu Take 1 U nivers ubiquinol, 1-16 le} capsule by ity of 100 mg Cap 00:00: mouth [place] 00 daily. [facility] coQ10, Yes [id number] 1{capsu Take 1 U nivers ubiquinol, 1-16 le} capsule by ity of 100 mg Cap 00:00: mouth [place] 00 daily. [facility] coQ10, Yes [id number] 1{capsu Take 1 U nivers ubiquinol, 1-16 le} capsule by ity of 100 mg Cap 00:00: mouth [place] 00 daily. [facility] coQ10, Yes [id number] 1{capsu Take 1 U nivers ubiquinol, 1-16 le} capsule by ity of 100 mg Cap 00:00: mouth [place] 00 daily. [facility] coQ10, Yes [id number] 1{capsu Take 1 U nivers ubiquinol, 1-16 le} capsule by ity of 100 mg Cap 00:00: mouth [place] 00 daily. [facility] coQ10, Yes [id number] 1{capsu Take 1 U nivers ubiquinol, 1-16 le} capsule by ity of 100 mg Cap 00:00: mouth [place] 00 daily. [facility] coQ10, Yes [id number] 1{capsu Take 1 U nivers ubiquinol, 1-16 le} capsule by ity of 100 mg Cap 00:00: mouth [place] 00 daily. [facility] coQ10, Yes [id number] 1{capsu Take 1 U nivers ubiquinol, 1-16 le} capsule by ity of 100 mg Cap 00:00: mouth [place] 00 daily. [facility] coQ10, Yes [id number] 1{capsu Take 1 U nivers ubiquinol, 1-16 le} capsule by ity of 100 mg Cap 00:00: mouth [place] 00 daily. [facility] coQ10, Yes [id number] 1{capsu Take 1 U nivers ubiquinol, 1-16 le} capsule by ity of 100 mg Cap 00:00: mouth [place] 00 daily. [facility] coQ10, Yes [id number] 1{capsu Take 1 U nivers ubiquinol, 1-16 le} capsule by ity of 100 mg Cap 00:00: mouth [place] 00 daily. [facility] coQ10, Yes [id number] 1{capsu Take 1 U nivers ubiquinol, 1-16 le} capsule by ity of 100 mg Cap 00:00: mouth [place] 00 daily. [facility] coQ10, Yes [id number] 1{capsu Take 1 U nivers ubiquinol, 1-16 le} capsule by ity of 100 mg Cap 00:00: mouth [place] 00 daily. [facility] coQ10, Yes [id number] 1{capsu Take 1 U nivers ubiquinol, 1-16 le} capsule by ity of 100 mg Cap 00:00: mouth [place] 00 daily. [facility] coQ10, Yes [id number] 1{capsu Take 1 U nivers ubiquinol, 1-16 le} capsule by ity of 100 mg Cap 00:00: mouth [place] 00 daily. [facility] coQ10, Yes [id number] 1{capsu Take 1 U nivers ubiquinol, 1-16 le} capsule by ity of 100 mg Cap 00:00: mouth [place] 00 daily. [facility] coQ10, Yes [id number] 1{capsu Take 1 U nivers ubiquinol, 1-16 le} capsule by ity of 100 mg Cap 00:00: mouth [place] 00 daily. [facility] coQ10, Yes [id number] 1{capsu Take 1 U nivers ubiquinol, 1-16 le} capsule by ity of 100 mg Cap 00:00: mouth [place] 00 daily. [facility] coQ10, Yes [id number] 1{capsu Take 1 U nivers ubiquinol, 1-16 le} capsule by ity of 100 mg Cap 00:00: mouth [place] 00 daily. [facility] coQ10, Yes [id number] 1{capsu Take 1 U nivers ubiquinol, 1-16 le} capsule by ity of 100 mg Cap 00:00: mouth [place] 00 daily. [facility] coQ10, Yes [id number] 1{capsu Take 1 U nivers ubiquinol, 1-16 le} capsule by ity of 100 mg Cap 00:00: mouth [place] 00 daily. [facility] coQ10, Yes [id number] 1{capsu Take 1 U nivers ubiquinol, 1-16 le} capsule by ity of 100 mg Cap 00:00: mouth [place] 00 daily. [facility] coQ10, Yes [id number] 1{capsu Take 1 U nivers ubiquinol, 1-16 le} capsule by ity of 100 mg Cap 00:00: mouth [place] 00 daily. [facility] coQ10, Yes [id number] 1{capsu Take 1 U nivers ubiquinol, 1-16 le} capsule by ity of 100 mg Cap 00:00: mouth [place] 00 daily. [facility] coQ10, Yes [id number] 1{capsu Take 1 U nivers ubiquinol, 1-16 le} capsule by ity of 100 mg Cap 00:00: mouth [place] 00 daily. [facility] coQ10, Yes [id number] 1{capsu Take 1 U nivers ubiquinol, 1-16 le} capsule by ity of 100 mg Cap 00:00: mouth [place] 00 daily. [facility] coQ10, Yes [id number] 1{capsu Take 1 U nivers ubiquinol, 1-16 le} capsule by ity of 100 mg Cap 00:00: mouth [place] 00 daily. [facility] coQ10, Yes [id number] 1{capsu Take 1 U nivers ubiquinol, 1-16 le} capsule by ity of 100 mg Cap 00:00: mouth [place] 00 daily. [facility] coQ10, Yes [id number] 1{capsu Take 1 U nivers ubiquinol, 1-16 le} capsule by ity of 100 mg Cap 00:00: mouth [place] 00 daily. [facility] coQ10, Yes [id number] 1{capsu Take 1 U nivers ubiquinol, 1-16 le} capsule by ity of 100 mg Cap 00:00: mouth [place] 00 daily. [facility] coQ10, Yes [id number] 1{capsu Take 1 U nivers ubiquinol, 1-16 le} capsule by ity of 100 mg Cap 00:00: mouth [place] 00 daily. [facility] loratadine Yes [id number] 10mg Take 1 [facility] 10 mg 1-23 tablet by [facility] of tablet 00:00: mouth [place] 00 daily. [facility] loratadine Yes [id number] 10mg Take 1 [facility] 10 mg 1-23 tablet by ity of tablet 00:00: mouth [place] 00 daily. [facility] loratadine Yes [id number] 10mg Take 1 [facility] 10 mg 1-23 tablet by ity of tablet 00:00: mouth [place] 00 daily. [facility] loratadine Yes [id number] 10mg Take 1 [facility] 10 mg 1-23 tablet by ity of tablet 00:00: mouth [place] 00 daily. [facility] loratadine Yes [id number] 10mg Take 1 [facility] 10 mg 1-23 tablet by ity of tablet 00:00: mouth [place] 00 daily. [facility] loratadine 2021- No [id number] 10mg Take 1 [facility] 10 mg 1-23 06-13 tablet by ity of tablet 00:00: 00:00 mouth [place] 00 :00 daily. 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) SARS-COV-2 COVID-19 2022-07-27 Completed [facility] rs[facility] of [facility]STELLE-SUCROSE VACCINE 00:00:00 [facility] 12 YRS+, BIVALENT Branch 0.3ML, IM, (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) SARS-COV-2 COVID-19 2022-07-27 Completed [facility]ive [facility] of [facility]STELLE-SUCROSE VACCINE 00:00:00 [facility] 12 YRS+, BIVALENT Branch 0.3ML, IM, (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) SARS-COV-2 COVID-19 2022-07-27 Completed Unive rsity of [facility]STELLE-SUCROSE VACCINE 00:00:00 [facility] 12 YRS+, BIVALENT Branch 0.3ML, IM, (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) SARS-COV-2 COVID-19 2022-07-27 Completed [facility]ive rsity of [facility]RISTELLE-SUCROSE VACCINE 00:00:00 [facility] 12 YRS+, BIVALENT Branch 0.3ML, IM, (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) SARS-COV-2 COVID-19 2022-07-27 Completed [facility]ive rs[facility] of [facility]STELLE-SUCROSE VACCINE 00:00:00 [facility] 12 YRS+, BIVALENT Branch 0.3ML, IM, (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) SARS-COV-2 COVID-19 2022-07-27 Completed [facility]ive rsity of [facility]STELLE-SUCROSE VACCINE 00:00:00 [facility] 12 YRS+, BIVALENT Branch 0.3ML, IM, (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) SARS-COV-2 COVID-19 2022-07-27 Completed [facility]ive rsity of [facility]RISTELLE-SUCROSE VACCINE 00:00:00 [facility] 12 YRS+, BIVALENT Branch 0.3ML, IM, (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) SARS-COV-2 COVID-19 2022-07-27 Completed Unive rsity of CHRISTELLE-SUCROSE VACCINE 00:00:00 [facility] 12 YRS+, BIVALENT Branch 0.3ML, IM, (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) SARS-COV-2 COVID-19 2022-07-27 Completed Unive rsity of CHRISTELLE-SUCROSE VACCINE 00:00:00 [facility] 12 YRS+, BIVALENT Branch 0.3ML, IM, (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) SARS-COV-2 COVID-19 2022-07-27 Completed [facility]ive rsity of [facility]RISTELLE-SUCROSE VACCINE 00:00:00 [facility] 12 YRS+, BIVALENT Branch 0.3ML, IM, (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) SARS-COV-2 COVID-19 2022-07-27 Completed [facility]ive rsity of [facility]RISTELLE-SUCROSE VACCINE 00:00:00 [facility] 12 YRS+, BIVALENT Branch 0.3ML, IM, (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) SARS-COV-2 COVID-19 2022-07-27 Completed [facility]ive rsity of CHRISTELLE-SUCROSE VACCINE 00:00:00 [facility] 12 YRS+, BIVALENT Branch 0.3ML, IM, (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) SARS-COV-2 COVID-19 2022-07-27 Completed [facility]ive rsity of CHRISTELLE-SUCROSE VACCINE 00:00:00 [facility] 12 YRS+, BIVALENT Branch 0.3ML, IM, (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) SARS-COV-2 COVID-19 2022-07-27 Completed [facility]ive rsity of CHRISTELLE-SUCROSE VACCINE 00:00:00 [facility] 12 YRS+, BIVALENT Branch 0.3ML, IM, (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) SARS-COV-2 COVID-19 2022-07-27 Completed [facility]ive rsity of CHRISTELLE-SUCROSE VACCINE 00:00:00 [facility] 12 YRS+, BIVALENT Branch 0.3ML, IM, (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) SARS-COV-2 COVID-19 2022-07-27 Completed [facility]ive rsity of CHRISTELLE-SUCROSE VACCINE 00:00:00 [facility] 12 YRS+, BIVALENT Branch 0.3ML, IM, (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) SARS-COV-2 COVID-19 2022-07-27 Completed [facility]ive rs[facility] of CHRISTELLE-SUCROSE VACCINE 00:00:00 [facility] 12 YRS+, BIVALENT Branch 0.3ML, IM, (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) SARS-COV-2 COVID-19 2022-07-27 Completed [facility]ive rsity of CHRISTELLE-SUCROSE VACCINE 00:00:00 [facility] 12 YRS+, BIVALENT Branch 0.3ML, IM, (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) SARS-COV-2 COVID-19 2022-07-27 Completed [facility]STEL[facility] VACCINE 00:00:00 [facility] [facility] Y[facility]+, BIVALENT Branch 0.3ML, IM, (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) SARS-COV-2 COVID-19 2022-07-27 Completed [facility] of [facility]STEL[facility] VACCINE 00:00:00 [place] [facility] YRS+, BIVALENT Branch 0.3ML, IM, (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) Influenza Virus 2022-06-04 Completed [facility] Vaccine [facility] .5 mL IM 00:00:00 [facility] Influenza Virus 2022-06-04 Completed [facility] of Vaccine [facility] .5 mL IM 00:00:00 [facility] Influenza Virus 2022-06-04 Completed [facility] of Vaccine [facility] .5 mL IM 00:00:00 [facility] Influenza Virus 2022-06-04 Completed [facility] of Vaccine [facility] .5 mL IM 00:00:00 [facility] Twinrix (hep a/hep b) 2022-02-24 Completed Uni versity of 00:00:00 [facility] Twinrix (hep a/hep b) 2022-02-24 Completed Uni versity of 00:00:00 [facility] Twinrix (hep a/hep b) 2022-02-24 Completed Uni versity of 00:00:00 [facility] Twinrix (hep a/hep b) 2022-02-24 Completed Uni versity of 00:00:00 [facility] Twinrix (hep a/hep b) 2022-02-24 Completed Uni versity of 00:00:00 [facility] Twinrix (hep a/hep b) 2022-02-24 Completed Uni versity of 00:00:00 [facility] Twinrix (hep a/hep b) 2022-02-24 Completed Uni versity of 00:00:00 [facility] Twinrix (hep a/hep b) 2022-02-24 Completed Uni versity of 00:00:00 [facility] Twinrix (hep a/hep b) 2022-02-24 Completed Uni versity of 00:00:00 [facility] Twinrix (hep a/hep b) 2022-02-24 [...] b) 2022-02-24 Completed Uni versity of 00:00:00 [place] [facility] Twinrix (hep a/hep b) 2022-02-24 Completed Uni versity of 00:00:00 [place] [facility] Twinrix (hep a/hep b) 2022-02-24 Completed Uni versity of 00:00:00 [facility] Twinrix (hep a/hep b) 2022-02-24 Completed Uni versity of 00:00:00 [facility] Twinrix (hep a/hep b) 2022-02-24 Completed Uni versity of 00:00:00 [facility] Twinrix (hep a/hep b) 2022-02-24 Completed Uni versity of 00:00:00 [facility] Twinrix (hep a/hep b) 2022-02-24 Completed Uni versity of 00:00:00 [facility] Twinrix (hep a/hep b) 2022-02-24 Completed Uni versity of 00:00:00 [facility] Twinrix (hep a/hep b) 2022-02-24 Completed Uni versity of 00:00:00 [facility] Twinrix (hep a/hep b) 2022-02-24 Completed Uni versity of 00:00:00 [place] [facility] Twinrix (hep a/hep b) 2022-02-24 Completed Uni versity of 00:00:00 [place] [facility] Twinrix (hep a/hep b) 2022-02-24 Completed Uni versity of 00:00:00 [facility] Twinrix (hep a/hep b) 2022-02-24 Completed Uni versity of 00:00:00 [facility] Twinrix (hep a/hep b) 2022-02-24 Completed Uni versity of 00:00:00 [place] [facility] Twinrix (hep a/hep b) 2022-02-24 Completed Uni versity of 00:00:00 [place] [facility] Twinrix (hep a/hep b) 2022-02-24 Completed Uni versity of 00:00:00 [place] [facility] Twinrix (hep a/hep b) 2022-02-24 Completed Uni versity of 00:00:00 [place] [facility] Twinrix (hep a/hep b) 2022-02-24 Completed Uni versity of 00:00:00 [place] [facility] Twinrix (hep a/hep b) 2022-02-24 Completed Uni versity of 00:00:00 [place] [facility] Twinrix (hep a/hep b) 2022-02-24 Completed Uni versity of 00:00:00 [place] [facility] Twinrix (hep a/hep b) 2022-02-24 Completed Uni versity of 00:00:00 [facility] Twinrix (hep a/hep b) 2022-02-24 Completed Uni versity of 00:00:00 [facility] Twinrix (hep a/hep b) 2022-02-24 Completed Uni versity of 00:00:00 [facility] Twinrix (hep a/hep b) 2022-02-24 Completed Uni versity of 00:00:00 [facility] Twinrix (hep a/hep b) 2022-02-24 Completed Uni versity of 00:00:00 [facility] Twinrix (hep a/hep b) 2022-02-24 Completed Uni versity of 00:00:00 [place] [facility] Twinrix (hep a/hep b) 2022-02-24 Completed Uni versity of 00:00:00 [place] [facility] Twinrix (hep a/hep b) 2022-02-24 Completed Uni versity of 00:00:00 [place] [facility] Twinrix (hep a/hep b) 2022-02-24 Completed Uni versity of 00:00:00 [place] [facility] Twinrix (hep a/hep b) 2022-02-24 Completed Uni versity of 00:00:00 [facility] Twinrix (hep a/hep b) 2022-02-24 [...] b) 2022-02-24 Completed Uni versity of 00:00:00 [place] [facility] Twinrix (hep a/hep b) 2022-02-24 Completed Uni versity of 00:00:00 [place] [facility] Twinrix (hep a/hep b) 2022-02-24 Completed Uni versity of 00:00:00 [place] [facility] Twinrix (hep a/hep b) 2022-02-24 Completed Uni versity of 00:00:00 [place] [facility] Twinrix (hep a/hep b) 2022-02-24 Completed Uni versity of 00:00:00 [place] [facility] Twinrix (hep a/hep b) 2022-02-24 Completed Uni versity of 00:00:00 [facility] Twinrix (hep a/hep b) 2022-02-24 [...] b) 2022-02-24 Completed Uni versity of 00:00:00 [place] [facility] Twinrix (hep a/hep b) 2022-02-24 Completed Uni versity of 00:00:00 [place] [facility] Twinrix (hep a/hep b) 2022-02-24 Completed Uni versity of 00:00:00 [place] [facility] Twinrix (hep a/hep b) 2022-02-24 Completed Uni versity of 00:00:00 [place] [facility] Twinrix (hep a/hep b) 2022-02-24 Completed Uni versity of 00:00:00 [place] [facility] Twinrix (hep a/hep b) 2022-02-24 Completed Uni versity of 00:00:00 [facility] Twinrix (hep a/hep b) 2022-02-24 Completed Uni versity of 00:00:00 [facility] Twinrix (hep a/hep b) 2022-02-24 Completed Uni versity of 00:00:00 [facility] Twinrix (hep a/hep b) 2022-02-24 Completed Uni versity of 00:00:00 [facility] Twinrix (hep a/hep b) 2022-02-24 Completed Uni versity of 00:00:00 [facility] Twinrix (hep a/hep b) 2022-02-24 Completed Uni versity of 00:00:00 [facility] Twinrix (hep a/hep b) 2022-02-24 Completed Uni versity of 00:00:00 [facility] Twinrix (hep a/hep b) 2022-01-14 Completed Uni versity of 00:00:00 [facility] Twinrix (hep a/hep b) 2022-01-14 Completed Uni versity of 00:00:00 [facility] Twinrix (hep a/hep b) 2022-01-14 Completed Uni versity of 00:00:00 [facility] Twinrix (hep a/hep b) 2022-01-14 Completed Uni versity of 00:00:00 [facility] Twinrix (hep a/hep b) 2022-01-14 Completed Uni versity of 00:00:00 [facility] Twinrix (hep a/hep b) 2022-01-14 [...] b) 2022-01-14 Completed Uni versity of 00:00:00 [place] [facility] Twinrix (hep a/hep b) 2022-01-14 Completed Uni versity of 00:00:00 [place] [facility] Twinrix (hep a/hep b) 2022-01-14 Completed Uni versity of 00:00:00 [place] [facility] Twinrix (hep a/hep b) 2022-01-14 Completed Uni versity of 00:00:00 [facility] Twinrix (hep a/hep b) 2022-01-14 Completed Uni versity of 00:00:00 [facility] Twinrix (hep a/hep b) 2022-01-14 Completed Uni versity of 00:00:00 [facility] Twinrix (hep a/hep b) 2022-01-14 Completed Uni versity of 00:00:00 [place] [facility] Twinrix (hep a/hep b) 2022-01-14 Completed Uni versity of 00:00:00 [place] [facility] Twinrix (hep a/hep b) 2022-01-14 Completed Uni versity of 00:00:00 [place] [facility] Twinrix (hep a/hep b) 2022-01-14 Completed Uni versity of 00:00:00 [place] [facility] Twinrix (hep a/hep b) 2022-01-14 Completed Uni versity of 00:00:00 [place] [facility] Twinrix (hep a/hep b) 2022-01-14 Completed Uni versity of 00:00:00 [facility] Twinrix (hep a/hep b) 2022-01-14 Completed Uni versity of 00:00:00 [place] [facility] Twinrix (hep a/hep b) 2022-01-14 Completed Uni versity of 00:00:00 [place] [facility] Twinrix (hep a/hep b) 2022-01-14 Completed Uni versity of 00:00:00 [place] [facility] Twinrix (hep a/hep b) 2022-01-14 Completed Uni versity of 00:00:00 [place] [facility] Twinrix (hep a/hep b) 2022-01-14 Completed Uni versity of 00:00:00 [facility] Twinrix (hep a/hep b) 2022-01-14 Completed Uni versity of 00:00:00 [facility] Twinrix (hep a/hep b) 2022-01-14 Completed Uni versity of 00:00:00 [facility] Twinrix (hep a/hep b) 2022-01-14 Completed Uni versity of 00:00:00 [facility] Twinrix (hep a/hep b) 2022-01-14 Completed Uni versity of 00:00:00 [facility] Twinrix (hep a/hep b) 2022-01-14 Completed Uni versity of 00:00:00 [facility] Twinrix (hep a/hep b) 2022-01-14 Completed Uni versity of 00:00:00 [facility] Twinrix (hep a/hep b) 2022-01-14 Completed Uni versity of 00:00:00 [facility] Twinrix (hep a/hep b) 2022-01-14 Completed Uni versity of 00:00:00 [facility] Twinrix (hep a/hep b) 2022-01-14 Completed Uni versity of 00:00:00 [facility] Twinrix (hep a/hep b) 2022-01-14 Completed Uni versity of 00:00:00 [facility] Twinrix (hep a/hep b) 2022-01-14 Completed Uni versity of 00:00:00 [facility] Twinrix (hep a/hep b) 2022-01-14 [...] b) 2022-01-14 Completed Uni versity of 00:00:00 [facility] Twinrix (hep a/hep b) 2022-01-14 Completed Uni versity of 00:00:00 [facility] Twinrix (hep a/hep b) 2022-01-14 Completed Uni versity of 00:00:00 [facility] Twinrix (hep a/hep b) 2022-01-14 Completed Uni versity of 00:00:00 [facility] Twinrix (hep a/hep b) 2022-01-14 Completed Uni versity of 00:00:00 [facility] Twinrix (hep a/hep b) 2022-01-14 Completed Uni versity of 00:00:00 [facility] Twinrix (hep a/hep b) 2022-01-14 [...] b) 2022-01-14 Completed Uni versity of 00:00:00 [facility] Twinrix (hep a/hep b) 2022-01-14 Completed Uni versity of 00:00:00 [facility] Twinrix (hep a/hep b) 2022-01-14 Completed Uni versity of 00:00:00 [facility] Twinrix (hep a/hep b) 2022-01-14 Completed Uni versity of 00:00:00 [facility] Twinrix (hep a/hep b) 2022-01-14 Completed Uni versity of 00:00:00 [facility] Twinrix (hep a/hep b) 2022-01-14 Completed Uni versity of 00:00:00 [facility] Twinrix (hep a/hep b) 2022-01-14 Completed Uni versity of 00:00:00 [facility] Twinrix (hep a/hep b) 2022-01-14 Completed Uni versity of 00:00:00 [facility] Twinrix (hep a/hep b) 2022-01-14 Completed Uni versity of 00:00:00 [facility] Twinrix (hep a/hep b) 2022-01-14 Completed Uni versity of 00:00:00 [facility] Twinrix (hep a/hep b) 2022-01-14 Completed Uni versity of 00:00:00 [facility] Twinrix (hep a/hep b) 2022-01-14 Completed Uni versity of 00:00:00 [facility] Twinrix (hep a/hep b) 2022-01-14 Completed Uni versity of 00:00:00 [facility] Twinrix (hep a/hep b) 2022-01-14 Completed Uni versity of 00:00:00 [facility] Twinrix (hep a/hep b) 2022-01-14 Completed Uni versity of 00:00:00 [facility] Twinrix (hep a/hep b) 2022-01-14 Completed Uni versity of 00:00:00 [facility] Twinrix (hep a/hep b) 2022-01-14 Completed Uni versity of 00:00:00 [facility] Twinrix (hep a/hep b) 2022-01-14 Completed Uni versity of 00:00:00 [facility] SARS-COV-2 COVID-19 2021-07-23 Completed Unive rsity of PFIZER VACCINE 00:00:00 [facility] SARS-COV-2 COVID-19 2021-07-23 Completed Unive rsity of PFIZER VACCINE 00:00:00 [facility] SARS-COV-2 COVID-19 2021-07-23 Completed Unive rsity of PFIZER VACCINE 00:00:00 [facility] SARS-COV-2 COVID-19 2021-07-23 Completed Unive rsity of PFIZER VACCINE 00:00:00 [facility] SARS-COV-2 COVID-19 2021-07-23 Completed Unive rsity of PFIZER VACCINE 00:00:00 [facility] SARS-COV-2 COVID-19 2021-07-23 Completed Unive rsity of PFIZER VACCINE 00:00:00 [facility] SARS-COV-2 COVID-19 2021-07-23 Completed Unive rsity of PFIZER VACCINE 00:00:00 [facility] SARS-COV-2 COVID-19 2021-07-23 Completed Unive rsity of PFIZER VACCINE 00:00:00 [facility] SARS-COV-2 COVID-19 2021-07-23 Completed Unive rsity of PFIZER VACCINE 00:00:00 [facility] SARS-COV-2 COVID-19 2021-07-23 Completed Unive rsity of PFIZER VACCINE 00:00:00 [facility] SARS-COV-2 COVID-19 2021-07-23 Completed Unive rsity of PFIZER VACCINE 00:00:00 [facility] SARS-COV-2 COVID-19 2021-07-23 Completed Unive rsity of PFIZER VACCINE 00:00:00 [facility] SARS-COV-2 COVID-19 2021-07-23 Completed Unive rsity of PFIZER VACCINE 00:00:00 [facility] SARS-COV-2 COVID-19 2021-07-23 Completed Unive [facility] PFIZER VACCINE 00:00:00 [facility] SARS-COV-2 COVID-19 2021-07-23 Completed [facility] PFIZER VACCINE 00:00:00 [facility] SARS-COV-2 COVID-19 2021-07-23 Completed [facility] PFIZER VACCINE 00:00:00 [facility] SARS-COV-2 COVID-19 2021-07-23 Completed [facility] PFIZER VACCINE 00:00:00 [facility] SARS-COV-2 COVID-19 2021-07-23 Completed [facility] PFIZER VACCINE 00:00:00 [facility] SARS-COV-2 COVID-19 2021-07-23 Completed [facility] PFIZER VACCINE 00:00:00 [facility] SARS-COV-2 COVID-19 2021-07-23 Completed [facility] PFIZER VACCINE 00:00:00 [facility] SARS-COV-2 COVID-19 2021-07-23 Completed [facility] PFIZER VACCINE 00:00:00 [facility] SARS-COV-2 COVID-19 2021-07-23 Completed [facility] PFIZER VACCINE 00:00:00 [facility] SARS-COV-2 COVID-19 2021-07-23 Completed [facility] PFIZER VACCINE 00:00:00 [facility] SARS-COV-2 COVID-19 2021-07-23 Completed [facility] PFIZER VACCINE 00:00:00 [facility] SARS-COV-2 COVID-19 2021-07-23 Completed [facility] PFIZER VACCINE 00:00:00 [facility] SARS-COV-2 COVID-19 2021-07-23 Completed [facility] PFIZER VACCINE 00:00:00 [facility] SARS-COV-2 COVID-19 2021-07-23 Completed [facility] PFIZER VACCINE 00:00:00 [facility] SARS-COV-2 COVID-19 2021-07-23 Completed [facility] PFIZER VACCINE 00:00:00 [facility] SARS-COV-2 COVID-19 2021-07-23 Completed [facility] PFIZER VACCINE 00:00:00 [facility] SARS-COV-2 COVID-19 2021-07-23 Completed [facility] PFIZER VACCINE 00:00:00 [facility] SARS-COV-2 COVID-19 2021-07-23 Completed [facility] PFIZER VACCINE 00:00:00 [facility] SARS-COV-2 COVID-19 2021-07-23 Completed [facility] PFIZER VACCINE 00:00:00 [facility] SARS-COV-2 COVID-19 2021-07-23 Completed [facility] PFIZER VACCINE 00:00:00 [facility] SARS-COV-2 COVID-19 2021-07-23 Completed [facility] PFIZER VACCINE 00:00:00 [facility] SARS-COV-2 COVID-19 2021-07-23 Completed [facility] PFIZER VACCINE 00:00:00 [facility] SARS-COV-2 COVID-19 2021-07-23 Completed [facility] PFIZER VACCINE 00:00:00 [facility] SARS-COV-2 COVID-19 2021-07-23 Completed [facility] PFIZER VACCINE 00:00:00 [facility] SARS-COV-2 COVID-19 2021-07-23 Completed [facility] PFIZER VACCINE 00:00:00 [facility] SARS-COV-2 COVID-19 2021-07-23 Completed [facility] PFIZER VACCINE 00:00:00 [facility] SARS-COV-2 COVID-19 2021-07-23 Completed [facility] PFIZER VACCINE 00:00:00 [facility] SARS-COV-2 COVID-19 2021-07-23 Completed [facility] PFIZER VACCINE 00:00:00 [facility] SARS-COV-2 COVID-19 2021-07-23 Completed [facility] PFIZER VACCINE 00:00:00 [facility] SARS-COV-2 COVID-19 2021-07-23 Completed [facility] PFIZER VACCINE 00:00:00 [facility] SARS-COV-2 COVID-19 2021-07-23 Completed [facility] PFIZER VACCINE 00:00:00 [facility] SARS-COV-2 COVID-19 2021-07-23 Completed [facility] PFIZER VACCINE 00:00:00 [facility] SARS-COV-2 COVID-19 2021-07-23 Completed [facility] PFIZER VACCINE 00:00:00 [facility] SARS-COV-2 COVID-19 2021-07-23 Completed [facility] PFIZER VACCINE 00:00:00 [facility] SARS-COV-2 COVID-19 2021-07-23 Completed [facility] PFIZER VACCINE 00:00:00 [facility] SARS-COV-2 COVID-19 2021-07-23 Completed [facility] PFIZER VACCINE 00:00:00 [facility] SARS-COV-2 COVID-19 2021-07-23 Completed [facility] PFIZER VACCINE 00:00:00 [facility] SARS-COV-2 COVID-19 2021-07-23 Completed [facility] PFIZER VACCINE 00:00:00 [facility] SARS-COV-2 COVID-19 2021-07-23 Completed [facility] PFIZER VACCINE 00:00:00 [facility] SARS-COV-2 COVID-19 2021-07-23 Completed [facility] PFIZER VACCINE 00:00:00 [facility] SARS-COV-2 COVID-19 2021-07-23 Completed [facility] PFIZER VACCINE 00:00:00 [facility] SARS-COV-2 COVID-19 2021-07-23 Completed [facility] PFIZER VACCINE 00:00:00 [facility] SARS-COV-2 COVID-19 2021-07-23 Completed [facility] PFIZER VACCINE 00:00:00 [facility] SARS-COV-2 COVID-19 2021-07-23 Completed [facility] PFIZER VACCINE 00:00:00 [facility] SARS-COV-2 COVID-19 2021-07-23 Completed [facility] PFIZER VACCINE 00:00:00 [facility] SARS-COV-2 COVID-19 2021-07-23 Completed [facility] PFIZER VACCINE 00:00:00 [facility] SARS-COV-2 COVID-19 2021-07-23 Completed [facility] PFIZER VACCINE 00:00:00 [facility] SARS-COV-2 COVID-19 2021-07-23 Completed [facility] PFIZER VACCINE 00:00:00 [facility] SARS-COV-2 COVID-19 2021-07-23 Completed [facility] PFIZER VACCINE 00:00:00 [facility] SARS-COV-2 COVID-19 2021-07-23 Completed [facility] PFIZER VACCINE 00:00:00 [facility] SARS-COV-2 COVID-19 2021-07-23 Completed [facility] PFIZER VACCINE 00:00:00 [facility] SARS-COV-2 COVID-19 2021-07-23 Completed [facility] PFIZER VACCINE 00:00:00 [facility] SARS-COV-2 COVID-19 2021-07-23 Completed [facility] PFIZER VACCINE 00:00:00 [facility] SARS-COV-2 COVID-19 2021-07-23 Completed [facility] PFIZER VACCINE 00:00:00 [facility] SARS-COV-2 COVID-19 2021-07-23 Completed [facility] PFIZER VACCINE 00:00:00 [facility] SARS-COV-2 COVID-19 2021-07-23 Completed [facility] PFIZER VACCINE 00:00:00 [facility] SARS-COV-2 COVID-19 2021-07-23 Completed [facility] PFIZER VACCINE 00:00:00 [facility] SARS-COV-2 COVID-19 2021-07-23 Completed [facility] PFIZER VACCINE 00:00:00 [facility] SARS-COV-2 COVID-19 2021-07-23 Completed [facility] PFIZER VACCINE 00:00:00 [facility] SARS-COV-2 COVID-19 2021-07-23 Completed [facility] PFIZER VACCINE 00:00:00 [facility] Influenza Virus 2021-05-27 Completed [facility] Vaccine (3+ yrs) 00:00:00 [facility] Influenza Virus 2021-05-27 Completed [facility] Vaccine (3+ yrs) 00:00:00 [facility] Influenza Virus 2021-05-27 Completed [facility] Vaccine (3+ yrs) 00:00:00 [facility] Influenza Virus 2021-05-27 Completed [facility] Vaccine (3+ yrs) 00:00:00 [facility] Influenza Virus 2021-05-27 Completed [facility] Vaccine (3+ yrs) 00:00:00 [facility] Influenza Virus 2021-05-27 Completed [facility] Vaccine (3+ yrs) 00:00:00 [facility] Influenza Virus 2021-05-27 Completed [facility] Vaccine (3+ yrs) 00:00:00 [facility] Influenza Virus 2021-05-27 Completed [facility] Vaccine (3+ yrs) 00:00:00 [facility] Influenza Virus 2021-05-27 Completed [facility] Vaccine (3+ yrs) 00:00:00 [facility] Influenza Virus 2021-05-27 Completed [facility] Vaccine (3+ yrs) 00:00:00 [facility] Influenza Virus 2021-05-27 Completed [facility] Vaccine (3+ yrs) 00:00:00 [facility] Influenza Virus 2021-05-27 Completed [facility] Vaccine (3+ yrs) 00:00:00 [facility] Influenza Virus 2021-05-27 Completed [facility] Vaccine (3+ yrs) 00:00:00 [facility] Influenza Virus 2021-05-27 Completed [facility] Vaccine (3+ yrs) 00:00:00 [facility] Influenza Virus 2021-05-27 Completed [facility] Vaccine (3+ yrs) 00:00:00 [facility] Influenza Virus 2021-05-27 Completed [facility] Vaccine (3+ yrs) 00:00:00 [facility] Influenza Virus 2021-05-27 Completed [facility] Vaccine (3+ yrs) 00:00:00 [facility] Influenza Virus 2021-05-27 Completed [facility] Vaccine (3+ yrs) 00:00:00 [facility] Influenza Virus 2021-05-27 Completed [facility] Vaccine (3+ yrs) 00:00:00 [facility] Influenza Virus 2021-05-27 Completed [facility] Vaccine (3+ yrs) 00:00:00 [facility] Influenza Virus 2021-05-27 Completed [facility] Vaccine (3+ yrs) 00:00:00 [facility] Influenza Virus 2021-05-27 Completed [facility] Vaccine (3+ yrs) 00:00:00 [facility] Influenza Virus 2021-05-27 Completed [facility] Vaccine (3+ yrs) 00:00:00 [facility] Influenza Virus 2021-05-27 Completed [facility] Vaccine (3+ yrs) 00:00:00 [facility] Influenza Virus 2021-05-27 Completed [facility] Vaccine (3+ yrs) 00:00:00 [facility] Influenza Virus 2021-05-27 Completed [facility] Vaccine (3+ yrs) 00:00:00 [facility] Influenza Virus 2021-05-27 Completed [facility] Vaccine (3+ yrs) 00:00:00 [facility] Influenza Virus 2021-05-27 Completed [facility] Vaccine (3+ yrs) 00:00:00 [facility] Influenza Virus 2021-05-27 Completed [facility] Vaccine (3+ yrs) 00:00:00 [facility] Influenza Virus 2021-05-27 Completed [facility] Vaccine (3+ yrs) 00:00:00 [facility] Influenza Virus 2021-05-27 Completed [facility] Vaccine (3+ yrs) 00:00:00 [facility] Influenza Virus 2021-05-27 Completed [facility] Vaccine (3+ yrs) 00:00:00 [facility] Influenza Virus 2021-05-27 Completed [facility] Vaccine (3+ yrs) 00:00:00 [facility] Influenza Virus 2021-05-27 Completed [facility] Vaccine (3+ yrs) 00:00:00 [facility] Influenza Virus 2021-05-27 Completed [facility] Vaccine (3+ yrs) 00:00:00 [facility] Influenza Virus 2021-05-27 Completed [facility] Vaccine (3+ yrs) 00:00:00 [facility] Influenza Virus 2021-05-27 Completed [facility] Vaccine (3+ yrs) 00:00:00 [facility] Influenza Virus 2021-05-27 Completed [facility] Vaccine (3+ yrs) 00:00:00 [facility] Influenza Virus 2021-05-27 Completed [facility] Vaccine (3+ yrs) 00:00:00 [facility] Influenza Virus 2021-05-27 Completed [facility] Vaccine (3+ yrs) 00:00:00 [facility] Influenza Virus 2021-05-27 Completed [facility] Vaccine (3+ yrs) 00:00:00 [facility] Influenza Virus 2021-05-27 Completed [facility] Vaccine (3+ yrs) 00:00:00 [facility] Influenza Virus 2021-05-27 Completed [facility] Vaccine (3+ yrs) 00:00:00 [facility] Influenza Virus 2021-05-27 Completed [facility] Vaccine (3+ yrs) 00:00:00 [facility] Influenza Virus 2021-05-27 Completed [facility] Vaccine (3+ yrs) 00:00:00 [facility] Influenza Virus 2021-05-27 Completed [facility] Vaccine (3+ yrs) 00:00:00 [facility] Influenza Virus 2021-05-27 Completed [facility] Vaccine (3+ yrs) 00:00:00 [facility] Influenza Virus 2021-05-27 Completed [facility] Vaccine (3+ yrs) 00:00:00 [facility] Influenza Virus 2021-05-27 Completed [facility] Vaccine (3+ yrs) 00:00:00 [facility] Influenza Virus 2021-05-27 Completed [facility] Vaccine (3+ yrs) 00:00:00 [facility] Influenza Virus 2021-05-27 Completed [facility] Vaccine (3+ yrs) 00:00:00 [facility] Influenza Virus 2021-05-27 Completed [facility] Vaccine (3+ yrs) 00:00:00 [facility] Influenza Virus 2021-05-27 Completed [facility] Vaccine (3+ yrs) 00:00:00 [facility] Influenza Virus 2021-05-27 Completed [facility] Vaccine (3+ yrs) 00:00:00 [facility] Influenza Virus 2021-05-27 Completed [facility] Vaccine (3+ yrs) 00:00:00 [facility] Influenza Virus 2021-05-27 Completed [facility] Vaccine (3+ yrs) 00:00:00 [facility] Influenza Virus 2021-05-27 Completed [facility] Vaccine (3+ yrs) 00:00:00 [facility] Influenza Virus 2021-05-27 Completed [facility] Vaccine (3+ yrs) 00:00:00 [facility] Influenza Virus 2021-05-27 Completed [facility] Vaccine (3+ yrs) 00:00:00 [facility] Influenza Virus 2021-05-27 Completed [facility] Vaccine (3+ yrs) 00:00:00 [facility] Influenza Virus 2021-05-27 Completed [facility] Vaccine (3+ yrs) 00:00:00 [facility] Influenza Virus 2021-05-27 Completed [facility] Vaccine (3+ yrs) 00:00:00 [facility] Influenza Virus 2021-05-27 Completed [facility] Vaccine (3+ yrs) 00:00:00 [facility] Influenza Virus 2021-05-27 Completed [facility] Vaccine (3+ yrs) 00:00:00 [facility] Influenza Virus 2021-05-27 Completed [facility] Vaccine (3+ yrs) 00:00:00 [facility] Influenza Virus 2021-05-27 Completed [facility] Vaccine (3+ yrs) 00:00:00 [facility] Influenza Virus 2021-05-27 Completed [facility] Vaccine (3+ yrs) 00:00:00 [facility] Influenza Virus 2021-05-27 Completed [facility] Vaccine (3+ yrs) 00:00:00 [facility] Influenza Virus 2021-05-27 Completed [facility] Vaccine (3+ yrs) 00:00:00 [facility] Influenza Virus 2021-05-27 Completed [facility] Vaccine (3+ yrs) 00:00:00 [facility] Influenza Virus 2021-05-27 Completed [facility] Vaccine (3+ yrs) 00:00:00 [facility] Influenza Virus 2021-05-27 Completed [facility] Vaccine (3+ yrs) 00:00:00 [facility] Influenza Virus 2021-05-27 Completed [facility] Vaccine (3+ yrs) 00:00:00 [facility] SARS-COV-2 COVID-19 2020-12-13 Completed [facility] PFIZER VACCINE 00:00:00 [facility] SARS-COV-2 COVID-19 2020-12-13 Completed [facility] PFIZER VACCINE 00:00:00 [facility] SARS-COV-2 COVID-19 2020-12-13 Completed [facility] PFIZER VACCINE 00:00:00 [facility] SARS-COV-2 COVID-19 2020-12-13 Completed [facility] PFIZER VACCINE 00:00:00 [facility] SARS-COV-2 COVID-19 2020-12-13 Completed [facility] PFIZER VACCINE 00:00:00 [facility] SARS-COV-2 COVID-19 2020-12-13 Completed [facility] PFIZER VACCINE 00:00:00 [facility] SARS-COV-2 COVID-19 2020-12-13 Completed [facility] PFIZER VACCINE 00:00:00 [facility] SARS-COV-2 COVID-19 2020-12-13 Completed [facility] PFIZER VACCINE 00:00:00 [facility] SARS-COV-2 COVID-19 2020-12-13 Completed [facility] PFIZER VACCINE 00:00:00 [facility] SARS-COV-2 COVID-19 2020-12-13 Completed [facility] PFIZER VACCINE 00:00:00 [facility] SARS-COV-2 COVID-19 2020-12-13 Completed [facility] PFIZER VACCINE 00:00:00 [facility] SARS-COV-2 COVID-19 2020-12-13 Completed [facility] PFIZER VACCINE 00:00:00 [facility] SARS-COV-2 COVID-19 2020-12-13 Completed [facility] PFIZER VACCINE 00:00:00 [facility] SARS-COV-2 COVID-19 2020-12-13 Completed [facility] PFIZER VACCINE 00:00:00 [facility] SARS-COV-2 COVID-19 2020-12-13 Completed [facility] PFIZER VACCINE 00:00:00 [facility] SARS-COV-2 COVID-19 2020-12-13 Completed [facility] PFIZER VACCINE 00:00:00 [facility] SARS-COV-2 COVID-19 2020-12-13 Completed [facility] PFIZER VACCINE 00:00:00 [facility] SARS-COV-2 COVID-19 2020-12-13 Completed [facility] PFIZER VACCINE 00:00:00 [facility] SARS-COV-2 COVID-19 2020-12-13 Completed [facility] PFIZER VACCINE 00:00:00 [facility] SARS-COV-2 COVID-19 2020-12-13 Completed [facility] PFIZER VACCINE 00:00:00 [facility] SARS-COV-2 COVID-19 2020-12-13 Completed [facility] PFIZER VACCINE 00:00:00 [facility] SARS-COV-2 COVID-19 2020-12-13 Completed [facility] PFIZER VACCINE 00:00:00 [facility] SARS-COV-2 COVID-19 2020-12-13 Completed [facility] PFIZER VACCINE 00:00:00 [facility] SARS-COV-2 COVID-19 2020-12-13 Completed [facility] PFIZER VACCINE 00:00:00 [facility] SARS-COV-2 COVID-19 2020-12-13 Completed [facility] PFIZER VACCINE 00:00:00 [facility] SARS-COV-2 COVID-19 2020-12-13 Completed [facility] PFIZER VACCINE 00:00:00 [facility] SARS-COV-2 COVID-19 2020-12-13 Completed [facility] PFIZER VACCINE 00:00:00 [facility] SARS-COV-2 COVID-19 2020-12-13 Completed [facility] PFIZER VACCINE 00:00:00 [facility] SARS-COV-2 COVID-19 2020-12-13 Completed [facility] PFIZER VACCINE 00:00:00 [facility] SARS-COV-2 COVID-19 2020-12-13 Completed [facility] PFIZER VACCINE 00:00:00 [facility] SARS-COV-2 COVID-19 2020-12-13 Completed [facility] PFIZER VACCINE 00:00:00 [facility] SARS-COV-2 COVID-19 2020-12-13 Completed [facility] PFIZER VACCINE 00:00:00 [facility] SARS-COV-2 COVID-19 2020-12-13 Completed [facility] PFIZER VACCINE 00:00:00 [facility] SARS-COV-2 COVID-19 2020-12-13 Completed [facility] PFIZER VACCINE 00:00:00 [facility] SARS-COV-2 COVID-19 2020-12-13 Completed [facility] PFIZER VACCINE 00:00:00 [facility] SARS-COV-2 COVID-19 2020-12-13 Completed [facility] PFIZER VACCINE 00:00:00 [facility] SARS-COV-2 COVID-19 2020-12-13 Completed [facility] PFIZER VACCINE 00:00:00 [facility] SARS-COV-2 COVID-19 2020-12-13 Completed [facility] PFIZER VACCINE 00:00:00 [facility] SARS-COV-2 COVID-19 2020-12-13 Completed [facility] PFIZER VACCINE 00:00:00 [facility] SARS-COV-2 COVID-19 2020-12-13 Completed [facility] PFIZER VACCINE 00:00:00 [facility] SARS-COV-2 COVID-19 2020-12-13 Completed [facility] PFIZER VACCINE 00:00:00 [facility] SARS-COV-2 COVID-19 2020-12-13 Completed [facility] PFIZER VACCINE 00:00:00 [facility] SARS-COV-2 COVID-19 2020-12-13 Completed [facility] PFIZER VACCINE 00:00:00 [facility] SARS-COV-2 COVID-19 2020-12-13 Completed [facility] PFIZER VACCINE 00:00:00 [facility] SARS-COV-2 COVID-19 2020-12-13 Completed [facility] PFIZER VACCINE 00:00:00 [facility] SARS-COV-2 COVID-19 2020-12-13 Completed [facility] PFIZER VACCINE 00:00:00 [facility] SARS-COV-2 COVID-19 2020-12-13 Completed [facility] PFIZER VACCINE 00:00:00 [facility] SARS-COV-2 COVID-19 2020-12-13 Completed [facility] PFIZER VACCINE 00:00:00 [facility] SARS-COV-2 COVID-19 2020-12-13 Completed [facility] PFIZER VACCINE 00:00:00 [facility] SARS-COV-2 COVID-19 2020-12-13 Completed [facility] PFIZER VACCINE 00:00:00 [facility] SARS-COV-2 COVID-19 2020-12-13 Completed [facility] PFIZER VACCINE 00:00:00 [facility] SARS-COV-2 COVID-19 2020-12-13 Completed [facility] PFIZER VACCINE 00:00:00 [facility] SARS-COV-2 COVID-19 2020-12-13 Completed [facility] PFIZER VACCINE 00:00:00 [facility] SARS-COV-2 COVID-19 2020-12-13 Completed [facility] PFIZER VACCINE 00:00:00 [facility] SARS-COV-2 COVID-19 2020-12-13 Completed [facility] PFIZER VACCINE 00:00:00 [facility] SARS-COV-2 COVID-19 2020-12-13 Completed [facility] PFIZER VACCINE 00:00:00 [facility] SARS-COV-2 COVID-19 2020-12-13 Completed [facility] PFIZER VACCINE 00:00:00 [facility] SARS-COV-2 COVID-19 2020-12-13 Completed [facility] PFIZER VACCINE 00:00:00 [facility] SARS-COV-2 COVID-19 2020-12-13 Completed [facility] PFIZER VACCINE 00:00:00 [facility] SARS-COV-2 COVID-19 2020-12-13 Completed [facility] PFIZER VACCINE 00:00:00 [facility] SARS-COV-2 COVID-19 2020-12-13 Completed [facility] PFIZER VACCINE 00:00:00 [facility] SARS-COV-2 COVID-19 2020-12-13 Completed [facility] PFIZER VACCINE 00:00:00 [facility] SARS-COV-2 COVID-19 2020-12-13 Completed [facility] PFIZER VACCINE 00:00:00 [facility] SARS-COV-2 COVID-19 2020-12-13 Completed [facility] PFIZER VACCINE 00:00:00 [facility] SARS-COV-2 COVID-19 2020-12-13 Completed [facility] PFIZER VACCINE 00:00:00 [facility] SARS-COV-2 COVID-19 2020-12-13 Completed [facility] PFIZER VACCINE 00:00:00 [facility] SARS-COV-2 COVID-19 2020-12-13 Completed [facility] PFIZER VACCINE 00:00:00 [facility] SARS-COV-2 COVID-19 2020-12-13 Completed [facility] PFIZER VACCINE 00:00:00 [facility] SARS-COV-2 COVID-19 2020-12-13 Completed [facility] PFIZER VACCINE 00:00:00 [facility] SARS-COV-2 COVID-19 2020-12-13 Completed [facility] PFIZER VACCINE 00:00:00 [facility] SARS-COV-2 COVID-19 2020-12-13 Completed [facility] PFIZER VACCINE 00:00:00 [facility] SARS-COV-2 COVID-19 2020-12-13 Completed [facility] PFIZER VACCINE 00:00:00 [facility] SARS-COV-2 COVID-19 2020-12-13 Completed [facility] PFIZER VACCINE 00:00:00 [facility] SARS-COV-2 COVID-19 2020-11-22 Completed [facility] PFIZER VACCINE 00:00:00 [facility] SARS-COV-2 COVID-19 2020-11-22 Completed [facility] PFIZER VACCINE 00:00:00 [facility] SARS-COV-2 COVID-19 2020-11-22 Completed [facility] PFIZER VACCINE 00:00:00 [facility] SARS-COV-2 COVID-19 2020-11-22 Completed [facility] PFIZER VACCINE 00:00:00 [facility] [facility] SARS-COV-2 COVID-19 2020-11-22 Completed [facility] PFIZER VACCINE 00:00:00 [facility] SARS-COV-2 COVID-19 2020-11-22 Completed [facility] PFIZER VACCINE 00:00:00 [facility] SARS-COV-2 COVID-19 2020-11-22 Completed [facility] PFIZER VACCINE 00:00:00 [facility] SARS-COV-2 COVID-19 2020-11-22 Completed [facility] PFIZER VACCINE 00:00:00 [facility] SARS-COV-2 COVID-19 2020-11-22 Completed [facility] PFIZER VACCINE 00:00:00 [facility] SARS-COV-2 COVID-19 2020-11-22 Completed [facility] PFIZER VACCINE 00:00:00 [facility] SARS-COV-2 COVID-19 2020-11-22 Completed [facility] PFIZER VACCINE 00:00:00 [facility] SARS-COV-2 COVID-19 2020-11-22 Completed [facility] PFIZER VACCINE 00:00:00 [facility] SARS-COV-2 COVID-19 2020-11-22 Completed [facility] PFIZER VACCINE 00:00:00 [facility] SARS-COV-2 COVID-19 2020-11-22 Completed [facility] PFIZER VACCINE 00:00:00 [facility] SARS-COV-2 COVID-19 2020-11-22 Completed [facility] PFIZER VACCINE 00:00:00 [facility] SARS-COV-2 COVID-19 2020-11-22 Completed [facility] PFIZER VACCINE 00:00:00 [facility] SARS-COV-2 COVID-19 2020-11-22 Completed [facility] PFIZER VACCINE 00:00:00 [facility] SARS-COV-2 COVID-19 2020-11-22 Completed [facility] PFIZER VACCINE 00:00:00 [facility] SARS-COV-2 COVID-19 2020-11-22 Completed [facility] PFIZER VACCINE 00:00:00 [facility] SARS-COV-2 COVID-19 2020-11-22 Completed [facility] PFIZER VACCINE 00:00:00 [facility] SARS-COV-2 COVID-19 2020-11-22 Completed [facility] PFIZER VACCINE 00:00:00 [facility] SARS-COV-2 COVID-19 2020-11-22 Completed [facility] PFIZER VACCINE 00:00:00 [facility] SARS-COV-2 COVID-19 2020-11-22 Completed [facility] PFIZER VACCINE 00:00:00 [facility] SARS-COV-2 COVID-19 2020-11-22 Completed [facility] PFIZER VACCINE 00:00:00 [facility] SARS-COV-2 COVID-19 2020-11-22 Completed [facility] PFIZER VACCINE 00:00:00 [facility] SARS-COV-2 COVID-19 2020-11-22 Completed [facility] PFIZER VACCINE 00:00:00 [facility] SARS-COV-2 COVID-19 2020-11-22 Completed [facility] PFIZER VACCINE 00:00:00 [facility] SARS-COV-2 COVID-19 2020-11-22 Completed [facility] PFIZER VACCINE 00:00:00 [facility] SARS-COV-2 COVID-19 2020-11-22 Completed [facility] PFIZER VACCINE 00:00:00 [facility] SARS-COV-2 COVID-19 2020-11-22 Completed [facility] PFIZER VACCINE 00:00:00 [facility] SARS-COV-2 COVID-19 2020-11-22 Completed [facility] PFIZER VACCINE 00:00:00 [facility] SARS-COV-2 COVID-19 2020-11-22 Completed [facility] PFIZER VACCINE 00:00:00 [facility] SARS-COV-2 COVID-19 2020-11-22 Completed [facility] PFIZER VACCINE 00:00:00 [facility] SARS-COV-2 COVID-19 2020-11-22 Completed [facility] PFIZER VACCINE 00:00:00 [facility] SARS-COV-2 COVID-19 2020-11-22 Completed [facility] PFIZER VACCINE 00:00:00 [facility] SARS-COV-2 COVID-19 2020-11-22 Completed [facility] PFIZER VACCINE 00:00:00 [facility] SARS-COV-2 COVID-19 2020-11-22 Completed [facility] PFIZER VACCINE 00:00:00 [facility] SARS-COV-2 COVID-19 2020-11-22 Completed [facility] PFIZER VACCINE 00:00:00 [facility] SARS-COV-2 COVID-19 2020-11-22 Completed [facility] PFIZER VACCINE 00:00:00 [facility] SARS-COV-2 COVID-19 2020-11-22 Completed [facility] PFIZER VACCINE 00:00:00 [facility] SARS-COV-2 COVID-19 2020-11-22 Completed [facility] PFIZER VACCINE 00:00:00 [facility] SARS-COV-2 COVID-19 2020-11-22 Completed [facility] PFIZER VACCINE 00:00:00 [facility] SARS-COV-2 COVID-19 2020-11-22 Completed [facility] PFIZER VACCINE 00:00:00 [facility] SARS-COV-2 COVID-19 2020-11-22 Completed [facility] PFIZER VACCINE 00:00:00 [facility] SARS-COV-2 COVID-19 2020-11-22 Completed [facility] PFIZER VACCINE 00:00:00 [facility] SARS-COV-2 COVID-19 2020-11-22 Completed [facility] PFIZER VACCINE 00:00:00 [facility] SARS-COV-2 COVID-19 2020-11-22 Completed [facility] PFIZER VACCINE 00:00:00 [facility] SARS-COV-2 COVID-19 2020-11-22 Completed [facility] PFIZER VACCINE 00:00:00 [facility] SARS-COV-2 COVID-19 2020-11-22 Completed [facility] PFIZER VACCINE 00:00:00 [facility] SARS-COV-2 COVID-19 2020-11-22 Completed [facility] PFIZER VACCINE 00:00:00 [facility] SARS-COV-2 COVID-19 2020-11-22 Completed [facility] PFIZER VACCINE 00:00:00 [facility] SARS-COV-2 COVID-19 2020-11-22 Completed [facility] PFIZER VACCINE 00:00:00 [facility] SARS-COV-2 COVID-19 2020-11-22 Completed [facility] PFIZER VACCINE 00:00:00 [facility] SARS-COV-2 COVID-19 2020-11-22 Completed [facility] PFIZER VACCINE 00:00:00 [facility] SARS-COV-2 COVID-19 2020-11-22 Completed [facility] PFIZER VACCINE 00:00:00 [facility] SARS-COV-2 COVID-19 2020-11-22 Completed [facility] PFIZER VACCINE 00:00:00 [facility] SARS-COV-2 COVID-19 2020-11-22 Completed [facility] PFIZER VACCINE 00:00:00 [facility] SARS-COV-2 COVID-19 2020-11-22 Completed [facility] PFIZER VACCINE 00:00:00 [facility] SARS-COV-2 COVID-19 2020-11-22 Completed [facility] PFIZER VACCINE 00:00:00 [facility] SARS-COV-2 COVID-19 2020-11-22 Completed [facility] PFIZER VACCINE 00:00:00 [facility] SARS-COV-2 COVID-19 2020-11-22 Completed [facility] PFIZER VACCINE 00:00:00 [facility] SARS-COV-2 COVID-19 2020-11-22 Completed [facility] PFIZER VACCINE 00:00:00 [facility] SARS-COV-2 COVID-19 2020-11-22 Completed [facility] PFIZER VACCINE 00:00:00 [facility] SARS-COV-2 COVID-19 2020-11-22 Completed [facility] PFIZER VACCINE 00:00:00 [facility] SARS-COV-2 COVID-19 2020-11-22 Completed [facility] PFIZER VACCINE 00:00:00 [facility] SARS-COV-2 COVID-19 2020-11-22 Completed [facility] PFIZER VACCINE 00:00:00 [facility] SARS-COV-2 COVID-19 2020-11-22 Completed [facility] PFIZER VACCINE 00:00:00 [facility] SARS-COV-2 COVID-19 2020-11-22 Completed [facility] PFIZER VACCINE 00:00:00 [facility] SARS-COV-2 COVID-19 2020-11-22 Completed [facility] PFIZER VACCINE 00:00:00 [facility] SARS-COV-2 COVID-19 2020-11-22 Completed [facility] PFIZER VACCINE 00:00:00 [facility] SARS-COV-2 COVID-19 2020-11-22 Completed [facility] PFIZER VACCINE 00:00:00 [facility] SARS-COV-2 COVID-19 2020-11-22 Completed [facility] PFIZER VACCINE 00:00:00 [facility] SARS-COV-2 COVID-19 2020-11-22 Completed [facility] PFIZER VACCINE 00:00:00 [facility] Influenza Virus 2020-05-27 Completed [facility] [...] 2019-08-10 Completed [facility] o f Polysaccharide, 00:00:00 [facility] ical PPSV23 (PNEUMOVAX) Branch TDAP (ADACEL) VACCINE 2019-08-10 Completed [facility] vers[facility] of 00:00:00 [facility] TDAP 2019-08-10 Completed University of 00:00:00 [facility] Pneumococcal 2019-08-10 Completed University o f Polysaccharide, 00:00:00 [facility] ical PPSV23 (PNEUMOVAX) Branch TDAP (ADACEL) VACCINE 2019-08-10 Completed [facility] of 00:00:00 [facility] TDAP 2019-08-10 Completed University of 00:00:00 [facility] Pneumococcal 2019-08-10 Completed [facility] o f Polysaccharide, 00:00:00 [facility] ical PPSV23 (PNEUMOVAX) Branch TDAP (ADACEL) VACCINE 2019-08-10 Completed [facility] of 00:00:00 [facility] TDAP 2019-08-10 Completed [facility] of 00:00:00 [facility] Pneumococcal 2019-08-10 Completed [facility] Polysaccharide, 00:00:00 [place] [facility] PPSV23 (PNEUMOVAX) [facility] TDAP (ADACEL) VACCINE 2019-08-10 Completed [facility] of 00:00:00 [facility] TDAP 2019-08-10 Completed [facility] of 00:00:00 [facility] Pneumococcal 2019-08-10 Completed [facility] Polysaccharide, 00:00:00 [place] [facility] PPSV23 (PNEUMOVAX) Branch TDAP (ADACEL) VACCINE 2019-08-10 Completed [facility] of 00:00:00 [facility] TDAP 2019-08-10 Completed [facility] of 00:00:00 [facility] Pneumococcal 2019-08-10 Completed [facility] f Polysaccharide, 00:00:00 [place] [facility] PPSV23 (PNEUMOVAX) Branch TDAP (ADACEL) VACCINE 2019-08-10 Completed [facility] of 00:00:00 [facility] TDAP 2019-08-10 Completed [facility] of 00:00:00 [facility] Pneumococcal 2019-08-10 Completed [facility] o f Polysaccharide, 00:00:00 [place] [facility] PPSV23 (PNEUMOVAX) [facility] TDAP (ADACEL) VACCINE 2019-08-10 Completed [facility] vers[facility] of 00:00:00 [facility] TDAP 2019-08-10 Completed [facility] of 00:00:00 [facility] Pneumococcal 2019-08-10 Completed [facility] o f Polysaccharide, 00:00:00 [facility] PPSV23 (PNEUMOVAX) Branch TDAP (ADACEL) VACCINE 2019-08-10 Completed [facility] of 00:00:00 [facility] TDAP 2019-08-10 Completed [facility] of 00:00:00 [facility] Pneumococcal 2019-08-10 Completed [facility] Polysaccharide, 00:00:00 [place] [facility] PPSV23 (PNEUMOVAX) Branch TDAP (ADACEL) VACCINE 2019-08-10 Completed [facility] of 00:00:00 [facility] TDAP 2019-08-10 Completed [facility] of 00:00:00 [facility] Pneumococcal 2019-08-10 Completed [facility] Polysaccharide, 00:00:00 [place] [facility] PPSV23 (PNEUMOVAX) Branch TDAP (ADACEL) VACCINE 2019-08-10 Completed [facility] of 00:00:00 [facility] TDAP 2019-08-10 Completed [facility] of 00:00:00 [facility] Pneumococcal 2019-08-10 Completed [facility] f Polysaccharide, 00:00:00 [place] [facility] PPSV23 (PNEUMOVAX) Branch TDAP (ADACEL) VACCINE 2019-08-10 Completed [facility] of 00:00:00 [facility] TDAP 2019-08-10 Completed [facility] of 00:00:00 [facility] Pneumococcal 2019-08-10 Completed [facility] f Polysaccharide, 00:00:00 [place] [facility] PPSV23 (PNEUMOVAX) Branch TDAP (ADACEL) VACCINE 2019-08-10 Completed [facility] of 00:00:00 [facility] TDAP 2019-08-10 Completed [facility] of 00:00:00 [facility] Pneumococcal 2019-08-10 Completed [facility] o f Polysaccharide, 00:00:00 [facility] PPSV23 (PNEUMOVAX) Branch TDAP (ADACEL) VACCINE 2019-08-10 Completed [facility] of 00:00:00 [facility] TDAP 2019-08-10 Completed [facility] of 00:00:00 [facility] Pneumococcal 2019-08-10 Completed [facility] o f Polysaccharide, 00:00:00 [facility] PPSV23 (PNEUMOVAX) Branch TDAP (ADACEL) VACCINE 2019-08-10 Completed [facility] 00:00:00 [facility] TDAP 2019-08-10 Completed [facility] of 00:00:00 [facility] Pneumococcal 2019-08-10 Completed [facility] o f Polysaccharide, 00:00:00 [facility] PPSV23 (PNEUMOVAX) Branch TDAP (ADACEL) VACCINE 2019-08-10 Completed [facility] 00:00:00 [facility] TDAP 2019-08-10 Completed [facility] of 00:00:00 [facility] Pneumococcal 2019-08-10 Completed [facility] o f Polysaccharide, 00:00:00 [place] [facility] PPSV23 (PNEUMOVAX) Branch TDAP (ADACEL) VACCINE 2019-08-10 Completed [facility] 00:00:00 [facility] TDAP 2019-08-10 Completed [facility] of 00:00:00 [facility] Pneumococcal 2019-08-10 Completed [facility] o f Polysaccharide, 00:00:00 [place] [facility] PPSV23 (PNEUMOVAX) Branch TDAP (ADACEL) VACCINE 2019-08-10 Completed [facility] 00:00:00 [facility] TDAP 2019-08-10 Completed [facility] of 00:00:00 [facility] Pneumococcal 2019-08-10 Completed [facility] o f Polysaccharide, 00:00:00 [place] [facility] PPSV23 (PNEUMOVAX) Branch TDAP (ADACEL) VACCINE 2019-08-10 Completed [facility] of 00:00:00 [facility] TDAP 2019-08-10 Completed [facility] of 00:00:00 [facility] Pneumococcal 2019-08-10 Completed [facility] o f Polysaccharide, 00:00:00 [place] [facility] PPSV23 (PNEUMOVAX) Branch TDAP (ADACEL) VACCINE 2019-08-10 Completed [facility] vers[facility] of 00:00:00 [facility] TDAP 2019-08-10 Completed [facility] of 00:00:00 [facility] Pneumococcal 2019-08-10 Completed [facility] o f Polysaccharide, 00:00:00 [facility] PPSV23 (PNEUMOVAX) Branch TDAP (ADACEL) VACCINE 2019-08-10 Completed [facility] of 00:00:00 [facility] TDAP 2019-08-10 Completed [facility] of 00:00:00 [facility] Pneumococcal 2019-08-10 Completed [facility] o f Polysaccharide, 00:00:00 [facility] PPSV23 (PNEUMOVAX) Branch TDAP (ADACEL) VACCINE 2019-08-10 Completed [facility] vers[facility] of 00:00:00 [facility] TDAP 2019-08-10 Completed [facility] of 00:00:00 [facility] Pneumococcal 2019-08-10 Completed [facility] o f Polysaccharide, 00:00:00 [place] [facility] PPSV23 (PNEUMOVAX) Branch TDAP (ADACEL) VACCINE 2019-08-10 Completed [facility] vers[facility] of 00:00:00 [facility] TDAP 2019-08-10 Completed [facility] of 00:00:00 [facility] Pneumococcal 2019-08-10 Completed [facility] o f Polysaccharide, 00:00:00 [place] [facility] PPSV23 (PNEUMOVAX) Branch TDAP (ADACEL) VACCINE 2019-08-10 Completed [facility] of 00:00:00 [facility] TDAP 2019-08-10 Completed [facility] of 00:00:00 [facility] Pneumococcal 2019-08-10 Completed [facility] o f Polysaccharide, 00:00:00 [place] [facility] PPSV23 (PNEUMOVAX) Branch TDAP (ADACEL) VACCINE 2019-08-10 Completed [facility] 00:00:00 [facility] TDAP 2019-08-10 Completed [facility] of 00:00:00 [facility] Pneumococcal 2019-08-10 Completed [facility] o f Polysaccharide, 00:00:00 [place] [facility] PPSV23 (PNEUMOVAX) Branch TDAP (ADACEL) VACCINE 2019-08-10 Completed [facility] vers[facility] 00:00:00 [facility] TDAP 2019-08-10 Completed [facility] 00:00:00 [facility] Pneumococcal 2019-08-10 Completed [facility] o f Polysaccharide, 00:00:00 [place] [facility] PPSV23 (PNEUMOVAX) Branch TDAP (ADACEL) VACCINE 2019-08-10 Completed [facility] vers[facility] of 00:00:00 [facility] TDAP 2019-08-10 Completed [facility] of 00:00:00 [facility] Pneumococcal 2019-08-10 Completed [facility] o f Polysaccharide, 00:00:00 [place] [facility] PPSV23 (PNEUMOVAX) Branch TDAP (ADACEL) VACCINE 2019-08-10 Completed [facility] vers[facility] 00:00:00 [facility] TDAP 2019-08-10 Completed [facility] of 00:00:00 [facility] Pneumococcal 2019-08-10 Completed [facility] o f Polysaccharide, 00:00:00 [place] [facility] PPSV23 (PNEUMOVAX) Branch TDAP (ADACEL) VACCINE 2019-08-10 Completed [facility] vers[facility] of 00:00:00 [facility] TDAP 2019-08-10 Completed [facility] of 00:00:00 [facility] Pneumococcal 2019-08-10 Completed [facility] o f Polysaccharide, 00:00:00 [place] [facility] PPSV23 (PNEUMOVAX) Branch TDAP (ADACEL) VACCINE 2019-08-10 Completed [facility] vers[facility] of 00:00:00 [facility] TDAP 2019-08-10 Completed [facility] of 00:00:00 [facility] Pneumococcal 2019-08-10 Completed [facility] o f Polysaccharide, 00:00:00 [place] [facility] PPSV23 (PNEUMOVAX) Branch TDAP (ADACEL) VACCINE 2019-08-10 Completed [facility] vers[facility] 00:00:00 [facility] TDAP 2019-08-10 Completed [facility] of 00:00:00 [facility] Pneumococcal 2019-08-10 Completed [facility] o f Polysaccharide, 00:00:00 [place] [facility] PPSV23 (PNEUMOVAX) Branch TDAP (ADACEL) VACCINE 2019-08-10 Completed [facility] vers[facility] of 00:00:00 [facility] TDAP 2019-08-10 Completed [facility] of 00:00:00 [facility] Pneumococcal 2019-08-10 Completed [facility] o f Polysaccharide, 00:00:00 [place] [facility] PPSV23 (PNEUMOVAX) Branch TDAP (ADACEL) VACCINE 2019-08-10 Completed [facility] 00:00:00 [facility] TDAP 2019-08-10 Completed [facility] 00:00:00 [facility] Pneumococcal 2019-08-10 Completed [facility] o f Polysaccharide, 00:00:00 [place] [facility] PPSV23 (PNEUMOVAX) Branch TDAP (ADACEL) VACCINE 2019-08-10 Completed [facility] vers[facility] of 00:00:00 [facility] TDAP 2019-08-10 Completed [facility] of 00:00:00 [facility] Pneumococcal 2019-08-10 Completed [facility] o f Polysaccharide, 00:00:00 [place] [facility] PPSV23 (PNEUMOVAX) Branch TDAP (ADACEL) VACCINE 2019-08-10 Completed [facility] of 00:00:00 [facility] TDAP 2019-08-10 Completed [facility] 00:00:00 [facility] Pneumococcal 2019-08-10 Completed [facility] o f Polysaccharide, 00:00:00 [place] [facility] PPSV23 (PNEUMOVAX) Branch TDAP (ADACEL) VACCINE 2019-08-10 Completed [facility] 00:00:00 [facility] TDAP 2019-08-10 Completed [facility] of 00:00:00 [facility] Pneumococcal 2019-08-10 Completed [facility] o f Polysaccharide, 00:00:00 [place] [facility] PPSV23 (PNEUMOVAX) Branch TDAP (ADACEL) VACCINE 2019-08-10 Completed [facility] 00:00:00 [facility] TDAP 2019-08-10 Completed [facility] of 00:00:00 [facility] Pneumococcal 2019-08-10 Completed [facility] o f Polysaccharide, 00:00:00 [place] [facility] PPSV23 (PNEUMOVAX) Branch TDAP (ADACEL) VACCINE 2019-08-10 Completed [facility] of 00:00:00 [facility] TDAP 2019-08-10 Completed [facility] 00:00:00 [facility] Pneumococcal 2019-08-10 Completed [facility] o f Polysaccharide, 00:00:00 [place] [facility] PPSV23 (PNEUMOVAX) Branch TDAP (ADACEL) VACCINE 2019-08-10 Completed [facility] of 00:00:00 [facility] TDAP 2019-08-10 Completed [facility] of 00:00:00 [facility] Pneumococcal 2019-08-10 Completed [facility] o f Polysaccharide, 00:00:00 [place] [facility] PPSV23 (PNEUMOVAX) Branch TDAP (ADACEL) VACCINE 2019-08-10 Completed [facility] vers[facility] of 00:00:00 [facility] TDAP 2019-08-10 Completed [facility] of 00:00:00 [facility] Pneumococcal 2019-08-10 Completed [facility] o f Polysaccharide, 00:00:00 [place] [facility] PPSV23 (PNEUMOVAX) Branch TDAP (ADACEL) VACCINE 2019-08-10 Completed [facility] of 00:00:00 [facility] TDAP 2019-08-10 Completed [facility] of 00:00:00 [facility] Pneumococcal 2019-08-10 Completed [facility] o f Polysaccharide, 00:00:00 [place] [facility] PPSV23 (PNEUMOVAX) Branch TDAP (ADACEL) VACCINE 2019-08-10 Completed [facility] of 00:00:00 [facility] TDAP 2019-08-10 Completed [facility] of 00:00:00 [facility] Pneumococcal 2019-08-10 Completed [facility] o f Polysaccharide, 00:00:00 [place] [facility] PPSV23 (PNEUMOVAX) Branch TDAP (ADACEL) VACCINE 2019-08-10 Completed [facility] vers[facility] of 00:00:00 [facility] TDAP 2019-08-10 Completed [facility] of 00:00:00 [facility] Pneumococcal 2019-08-10 Completed [facility] o f Polysaccharide, 00:00:00 [place] [facility] PPSV23 (PNEUMOVAX) Branch TDAP (ADACEL) VACCINE 2019-08-10 Completed [facility] vers[facility] of 00:00:00 [facility] TDAP 2019-08-10 Completed [facility] of 00:00:00 [facility] Pneumococcal 2019-08-10 Completed [facility] o f Polysaccharide, 00:00:00 [place] [facility] PPSV23 (PNEUMOVAX) Branch TDAP (ADACEL) VACCINE 2019-08-10 Completed [facility] vers[facility] of 00:00:00 [facility] TDAP 2019-08-10 Completed [facility] of 00:00:00 [facility] Pneumococcal 2019-08-10 Completed [facility] o f Polysaccharide, 00:00:00 [place] [facility] PPSV23 (PNEUMOVAX) Branch TDAP (ADACEL) VACCINE 2019-08-10 Completed [facility] vers[facility] of 00:00:00 [facility] TDAP 2019-08-10 Completed [facility] of 00:00:00 [facility] Pneumococcal 2019-08-10 Completed [facility] o f Polysaccharide, 00:00:00 [place] [facility] PPSV23 (PNEUMOVAX) Branch TDAP (ADACEL) VACCINE 2019-08-10 Completed [facility] vers[facility] of 00:00:00 [facility] TDAP 2019-08-10 Completed [facility] of 00:00:00 [facility] Pneumococcal 2019-08-10 Completed [facility] o f Polysaccharide, 00:00:00 [place] [facility] PPSV23 (PNEUMOVAX) Branch TDAP (ADACEL) VACCINE 2019-08-10 Completed [facility] vers[facility] of 00:00:00 [facility] TDAP 2019-08-10 Completed [facility] of 00:00:00 [facility] Pneumococcal 2019-08-10 Completed [facility] o f Polysaccharide, 00:00:00 [place] [facility] PPSV23 (PNEUMOVAX) Branch TDAP (ADACEL) VACCINE 2019-08-10 Completed [facility] vers[facility] of 00:00:00 [facility] TDAP 2019-08-10 Completed [facility] of 00:00:00 [facility] Pneumococcal 2019-08-10 Completed [facility] o f Polysaccharide, 00:00:00 [place] [facility] PPSV23 (PNEUMOVAX) Branch TDAP (ADACEL) VACCINE 2019-08-10 Completed [facility] 00:00:00 [facility] TDAP 2019-08-10 Completed [facility] 00:00:00 [facility] Pneumococcal 2019-08-10 Completed [facility] o f Polysaccharide, 00:00:00 [place] [facility] PPSV23 (PNEUMOVAX) Branch TDAP (ADACEL) VACCINE 2019-08-10 Completed [facility] 00:00:00 [facility] TDAP 2019-08-10 Completed [facility] 00:00:00 [facility] Pneumococcal 2019-08-10 Completed [facility] o f Polysaccharide, 00:00:00 [place] [facility] PPSV23 (PNEUMOVAX) Branch TDAP (ADACEL) VACCINE 2019-08-10 Completed [facility] 00:00:00 [facility] TDAP 2019-08-10 Completed [facility] 00:00:00 [facility] Pneumococcal 2019-08-10 Completed [facility] o f Polysaccharide, 00:00:00 [place] [facility] PPSV23 (PNEUMOVAX) Branch TDAP (ADACEL) VACCINE 2019-08-10 Completed [facility] vers[facility] of 00:00:00 [facility] TDAP 2019-08-10 Completed [facility] 00:00:00 [facility] Pneumococcal 2019-08-10 Completed University o f Polysaccharide, 00:00:00 [facility] PPSV23 (PNEUMOVAX) [facility] TDAP (ADACEL) VACCINE 2019-08-10 Completed [facility] vers[facility] of 00:00:00 [facility] TDAP 2019-08-10 Completed [facility] 00:00:00 [facility] Pneumococcal 2019-08-10 Completed [facility] o f Polysaccharide, 00:00:00 [facility] PPSV23 (PNEUMOVAX) Branch TDAP (ADACEL) VACCINE 2019-08-10 Completed [facility] of 00:00:00 [facility] TDAP 2019-08-10 Completed [facility] of 00:00:00 [facility] Pneumococcal 2019-08-10 Completed [facility] o f Polysaccharide, 00:00:00 [facility] PPSV23 (PNEUMOVAX) Branch TDAP (ADACEL) VACCINE 2019-08-10 Completed [facility] vers[facility] of 00:00:00 [facility] TDAP 2019-08-10 Completed [facility] of 00:00:00 [facility] Pneumococcal 2019-08-10 Completed University o f Polysaccharide, 00:00:00 [facility] PPSV23 (PNEUMOVAX) Branch TDAP (ADACEL) VACCINE 2019-08-10 Completed [facility] vers[facility] of 00:00:00 [facility] TDAP 2019-08-10 Completed [facility] 00:00:00 [facility] Pneumococcal 2019-08-10 Completed [facility] o f Polysaccharide, 00:00:00 [facility] PPSV23 (PNEUMOVAX) Branch TDAP (ADACEL) VACCINE 2019-08-10 Completed [facility] vers[facility] of 00:00:00 [facility] TDAP 2019-08-10 Completed [facility] 00:00:00 [facility] Pneumococcal 2019-08-10 Completed [facility] o f Polysaccharide, 00:00:00 [facility] PPSV23 (PNEUMOVAX) Branch TDAP (ADACEL) VACCINE 2019-08-10 Completed [facility] vers[facility] of 00:00:00 [facility] TDAP 2019-08-10 Completed [facility] 00:00:00 [facility] Pneumococcal 2019-08-10 Completed [facility] o f Polysaccharide, 00:00:00 [facility] PPSV23 (PNEUMOVAX) Branch TDAP (ADACEL) VACCINE 2019-08-10 Completed [facility] vers[facility] of 00:00:00 [facility] TDAP 2019-08-10 Completed [facility] 00:00:00 [facility] Pneumococcal 2019-08-10 Completed [facility] o f Polysaccharide, 00:00:00 [facility] PPSV23 (PNEUMOVAX) Branch TDAP (ADACEL) VACCINE 2019-08-10 Completed [facility] vers[facility] of 00:00:00 [facility] TDAP 2019-08-10 Completed [facility] 00:00:00 [facility] Pneumococcal 2019-08-10 Completed [facility] o f Polysaccharide, 00:00:00 [facility] PPSV23 (PNEUMOVAX) Branch TDAP (ADACEL) VACCINE 2019-08-10 Completed [facility] versity of 00:00:00 [facility] TDAP 2019-08-10 Completed [facility] of 00:00:00 [facility] Pneumococcal 2019-08-10 Completed University o f Polysaccharide, 00:00:00 [facility] PPSV23 (PNEUMOVAX) Branch TDAP (ADACEL) VACCINE 2019-08-10 Completed [facility] vers[facility] of 00:00:00 [facility] TDAP 2019-08-10 Completed [facility] of 00:00:00 [facility] Pneumococcal 2019-08-10 Completed [facility] o f Polysaccharide, 00:00:00 [facility] PPSV23 (PNEUMOVAX) Branch TDAP (ADACEL) VACCINE 2019-08-10 Completed [facility] vers[facility] of 00:00:00 [facility] TDAP 2019-08-10 Completed [facility] of 00:00:00 [facility] Pneumococcal 2019-08-10 Completed [facility] o f Polysaccharide, 00:00:00 [facility] PPSV23 (PNEUMOVAX) Branch TDAP (ADACEL) VACCINE 2019-08-10 Completed [facility] vers[facility] of 00:00:00 [facility] TDAP 2019-08-10 Completed [facility] 00:00:00 [facility] Pneumococcal 2019-08-10 Completed [facility] o f Polysaccharide, 00:00:00 [facility] PPSV23 (PNEUMOVAX) Branch TDAP (ADACEL) VACCINE 2019-08-10 Completed [facility] vers[facility] of 00:00:00 [facility] TDAP 2019-08-10 Completed [facility] 00:00:00 [facility] Pneumococcal 2019-08-10 Completed [facility] o f Polysaccharide, 00:00:00 [place] [facility] PPSV23 (PNEUMOVAX) Branch TDAP (ADACEL) VACCINE 2019-08-10 Completed [facility] vers[facility] of 00:00:00 [facility] TDAP 2019-08-10 Completed [facility] 00:00:00 [facility] Pneumococcal 2019-08-10 Completed [facility] o f Polysaccharide, 00:00:00 [facility] PPSV23 (PNEUMOVAX) Branch TDAP (ADACEL) VACCINE 2019-08-10 Completed [facility] vers[facility] of 00:00:00 [facility] TDAP 2019-08-10 Completed [facility] of 00:00:00 [facility] Pneumococcal 2019-08-10 Completed [facility] o f Polysaccharide, 00:00:00 [facility] PPSV23 (PNEUMOVAX) Branch TDAP (ADACEL) VACCINE 2019-08-10 Completed [facility] vers[facility] of 00:00:00 [facility] TDAP 2019-08-10 Completed [facility] 00:00:00 [facility] Pneumococcal 2019-08-10 Completed [facility] o f Polysaccharide, 00:00:00 [facility] PPSV23 (PNEUMOVAX) Branch TDAP (ADACEL) VACCINE 2019-08-10 Completed [facility] versity of 00:00:00 [facility] TDAP 2019-08-10 Completed [facility] 00:00:00 [facility] Pneumococcal 2019-08-10 Completed [facility] o f Polysaccharide, 00:00:00 [facility] PPSV23 (PNEUMOVAX) Branch TDAP (ADACEL) VACCINE 2019-08-10 Completed [facility] vers[facility] of 00:00:00 [facility] TDAP 2019-08-10 Completed [facility] of 00:00:00 [facility] Pneumococcal 2019-08-10 Completed [facility] o f Polysaccharide, 00:00:00 [facility] PPSV23 (PNEUMOVAX) Branch TDAP (ADACEL) VACCINE 2019-08-10 Completed [facility] versity of 00:00:00 [facility] TDAP 2019-08-10 Completed [facility] 00:00:00 [facility] Pneumococcal 2019-08-10 Completed [facility] o f Polysaccharide, 00:00:00 [facility] PPSV23 (PNEUMOVAX) Branch TDAP (ADACEL) VACCINE 2019-08-10 Completed Uni versity of 00:00:00 [facility] TDAP 2019-08-10 Completed [facility] of 00:00:00 [facility] Pneumococcal 2019-08-10 Completed University o f Polysaccharide, 00:00:00 [facility] PPSV23 (PNEUMOVAX) Branch TDAP (ADACEL) VACCINE 2019-08-10 Completed Uni versity of 00:00:00 [facility] TDAP 2019-08-10 Completed [facility] of 00:00:00 [facility] Influenza Virus 2019-07-04 Completed Universit y of Vaccine 00:00:00 [facility] Influenza Virus 2019-07-04 Completed Universit y of Vaccine Recomb Quad 00:00:00 [facility], Preserv and ABX Branc h Free 18-64 YRS Influenza Virus 2019-07-04 Completed Universit y of Vaccine 00:00:00 [facility] Influenza Virus 2019-07-04 Completed Universit y of Vaccine Recomb Quad 00:00:00 [facility], Preserv and ABX Branc h Free 18-64 YRS Influenza Virus 2019-07-04 Completed Universit y of Vaccine 00:00:00 [facility] Influenza Virus 2019-07-04 Completed Universit y of Vaccine Recomb Quad 00:00:00 [facility], Preserv and ABX Branc h Free 18-64 YRS Influenza Virus 2019-07-04 Completed Universit y of Vaccine 00:00:00 [facility] Influenza Virus 2019-07-04 Completed [facility]it y of Vaccine Recomb Quad 00:00:00 [facility], Preserv and ABX Branc h Free 18-64 YRS Influenza Virus 2019-07-04 Completed Universit y of Vaccine 00:00:00 [facility] Influenza Virus 2019-07-04 Completed [facility]it y of Vaccine Recomb Quad 00:00:00 [facility], Preserv and ABX Branc h Free 18-64 YRS Influenza Virus 2019-07-04 Completed Universit y of Vaccine 00:00:00 [facility] Influenza Virus 2019-07-04 Completed [facility]it y of Vaccine Recomb Quad 00:00:00 [facility], Preserv and ABX Branc h Free 18-64 YRS Influenza Virus 2019-07-04 Completed Universit y of Vaccine 00:00:00 [facility] Influenza Virus 2019-07-04 Completed [facility]it y of Vaccine Recomb Quad 00:00:00 [facility], Preserv and ABX Branc h Free 18-64 YRS Influenza Virus 2019-07-04 Completed Universit y of Vaccine 00:00:00 [facility] Influenza Virus 2019-07-04 Completed Universit y of Vaccine Recomb Quad 00:00:00 [facility], Preserv and ABX Branc h Free 18-64 YRS Influenza Virus 2019-07-04 Completed Universit y of Vaccine 00:00:00 [facility] Influenza Virus 2019-07-04 Completed Universit y of Vaccine Recomb Quad 00:00:00 [facility], Preserv and ABX Branc h Free 18-64 YRS Influenza Virus 2019-07-04 Completed Universit y of Vaccine 00:00:00 [facility] Influenza Virus 2019-07-04 Completed [facility]it y of Vaccine Recomb Quad 00:00:00 [facility], Preserv and ABX Branc h Free 18-64 YRS Influenza Virus 2019-07-04 Completed Universit y of Vaccine 00:00:00 [facility] Influenza Virus 2019-07-04 Completed [facility]it y of Vaccine Recomb Quad 00:00:00 [facility], Preserv and ABX Branc h Free 18-64 YRS Influenza Virus 2019-07-04 Completed Universit y of Vaccine 00:00:00 [facility] Influenza Virus 2019-07-04 Completed [facility]it y of Vaccine Recomb Quad 00:00:00 [facility], Preserv and ABX Branc h Free 18-64 YRS Influenza Virus 2019-07-04 Completed Universit y of Vaccine 00:00:00 [facility] Influenza Virus 2019-07-04 Completed [facility]it y of Vaccine Recomb Quad 00:00:00 [facility], Preserv and ABX Branc h Free 18-64 YRS Influenza Virus 2019-07-04 Completed Universit y of Vaccine 00:00:00 [facility] Influenza Virus 2019-07-04 Completed [facility]it y of Vaccine Recomb Quad 00:00:00 [facility], Preserv and ABX Branc h Free 18-64 YRS Influenza Virus 2019-07-04 Completed Universit y of Vaccine 00:00:00 [facility] Influenza Virus 2019-07-04 Completed [facility]it y of Vaccine Recomb Quad 00:00:00 [facility], Preserv and ABX Branc h Free 18-64 YRS Influenza Virus 2019-07-04 Completed Universit y of Vaccine 00:00:00 [facility] Influenza Virus 2019-07-04 Completed [facility]it y of Vaccine Recomb Quad 00:00:00 [facility], Preserv and ABX Branc h Free 18-64 YRS Influenza Virus 2019-07-04 Completed Universit y of Vaccine 00:00:00 [facility] Influenza Virus 2019-07-04 Completed [facility]it y of Vaccine Recomb Quad 00:00:00 [facility], Preserv and ABX Branc h Free 18-64 YRS Influenza Virus 2019-07-04 Completed Universit y of Vaccine 00:00:00 [facility] Influenza Virus 2019-07-04 Completed [facility]it y of Vaccine Recomb Quad 00:00:00 [facility], Preserv and ABX Branc h Free 18-64 YRS Influenza Virus 2019-07-04 Completed Universit y of Vaccine 00:00:00 [facility] Influenza Virus 2019-07-04 Completed [facility]it y of Vaccine Recomb Quad 00:00:00 [facility], Preserv and ABX Branc h Free 18-64 YRS Influenza Virus 2019-07-04 Completed Universit y of Vaccine 00:00:00 [facility] Influenza Virus 2019-07-04 Completed [facility]it y of Vaccine Recomb Quad 00:00:00 [facility], Preserv and ABX Branc h Free 18-64 YRS Influenza Virus 2019-07-04 Completed Universit y of Vaccine 00:00:00 [facility] Influenza Virus 2019-07-04 Completed [facility]it y of Vaccine Recomb Quad 00:00:00 [facility], Preserv and ABX Branc h Free 18-64 YRS Influenza Virus 2019-07-04 Completed [facility]it y of Vaccine 00:00:00 [facility] Influenza Virus 2019-07-04 Completed [facility]it y of Vaccine Recomb Quad 00:00:00 [facility], Preserv and ABX Branc h Free 18-64 YRS Influenza Virus 2019-07-04 Completed Universit y of Vaccine 00:00:00 [facility] Influenza Virus 2019-07-04 Completed [facility]it y of Vaccine Recomb Quad 00:00:00 [facility], Preserv and ABX Branc h Free 18-64 YRS Influenza Virus 2019-07-04 Completed Universit y of Vaccine 00:00:00 [facility] Influenza Virus 2019-07-04 Completed [facility] y of Vaccine Recomb Quad 00:00:00 [facility], Preserv and ABX Branc h Free 18-64 YRS Influenza Virus 2019-07-04 Completed Universit y of Vaccine 00:00:00 [facility] Influenza Virus 2019-07-04 Completed [facility] y of Vaccine Recomb Quad 00:00:00 [facility], Preserv and ABX Branc h Free 18-64 YRS Influenza Virus 2019-07-04 Completed Universit y of Vaccine 00:00:00 [facility] Influenza Virus 2019-07-04 Completed [facility]it y of Vaccine Recomb Quad 00:00:00 [facility], Preserv and ABX Branc h Free 18-64 YRS Influenza Virus 2019-07-04 Completed Universit y of Vaccine 00:00:00 [facility] Influenza Virus 2019-07-04 Completed [facility]it y of Vaccine Recomb Quad 00:00:00 [facility], Preserv and ABX Branc h Free 18-64 YRS Influenza Virus 2019-07-04 Completed [facility]it y of Vaccine 00:00:00 [facility] Influenza Virus 2019-07-04 Completed [facility]it y of Vaccine Recomb Quad 00:00:00 [facility], Preserv and ABX Branc h Free 18-64 YRS Influenza Virus 2019-07-04 Completed [facility]it y of Vaccine 00:00:00 [facility] Influenza Virus 2019-07-04 Completed [facility] y of Vaccine Recomb Quad 00:00:00 [facility], Preserv and ABX Branc h Free 18-64 YRS Influenza Virus 2019-07-04 Completed [facility]it y of Vaccine 00:00:00 [facility] Influenza Virus 2019-07-04 Completed [facility] y of Vaccine Recomb Quad 00:00:00 [facility], Preserv and ABX Branc h Free 18-64 YRS Influenza Virus 2019-07-04 Completed [facility]it y of Vaccine 00:00:00 [facility] Influenza Virus 2019-07-04 Completed [facility] y of Vaccine Recomb Quad 00:00:00 [facility], Preserv and ABX Branc h Free 18-64 YRS Influenza Virus 2019-07-04 Completed Universit y of Vaccine 00:00:00 [facility] Influenza Virus 2019-07-04 Completed [facility] y of Vaccine Recomb Quad 00:00:00 [facility], Preserv and ABX Branc h Free 18-64 YRS Influenza Virus 2019-07-04 Completed [facility]it y of Vaccine 00:00:00 [facility] Influenza Virus 2019-07-04 Completed [facility] y of Vaccine Recomb Quad 00:00:00 [facility], Preserv and ABX Branc h Free 18-64 YRS Influenza Virus 2019-07-04 Completed [facility]it y of Vaccine 00:00:00 [facility] Influenza Virus 2019-07-04 Completed [facility] y of Vaccine Recomb Quad 00:00:00 [facility], Preserv and ABX Branc h Free 18-64 YRS Influenza Virus 2019-07-04 Completed [facility]it y of Vaccine 00:00:00 [facility] Influenza Virus 2019-07-04 Completed [facility] y of Vaccine Recomb Quad 00:00:00 [facility], Preserv and ABX Branc h Free 18-64 YRS Influenza Virus 2019-07-04 Completed Universit y of Vaccine 00:00:00 [facility] Influenza Virus 2019-07-04 Completed [facility] y of Vaccine Recomb Quad 00:00:00 [facility], Preserv and ABX Branc h Free 18-64 YRS Influenza Virus 2019-07-04 Completed Universit y of Vaccine 00:00:00 [facility] Influenza Virus 2019-07-04 Completed [facility] y of Vaccine Recomb Quad 00:00:00 [facility], Preserv and ABX Branc h Free 18-64 YRS Influenza Virus 2019-07-04 Completed [facility]it y of Vaccine 00:00:00 [facility] Influenza Virus 2019-07-04 Completed [facility] y of Vaccine Recomb Quad 00:00:00 [facility], Preserv and ABX Branc h Free 18-64 YRS Influenza Virus 2019-07-04 Completed [facility]it y of Vaccine 00:00:00 [facility] Influenza Virus 2019-07-04 Completed [facility] y of Vaccine Recomb Quad 00:00:00 [facility], Preserv and ABX Branc h Free 18-64 YRS Influenza Virus 2019-07-04 Completed [facility]it y of Vaccine 00:00:00 [facility] Influenza Virus 2019-07-04 Completed [facility] y of Vaccine Recomb Quad 00:00:00 [facility], Preserv and ABX Branc h Free 18-64 YRS Influenza Virus 2019-07-04 Completed [facility]it y of Vaccine 00:00:00 [facility] Influenza Virus 2019-07-04 Completed [facility] y of Vaccine Recomb Quad 00:00:00 [facility], Preserv and ABX Branc h Free 18-64 YRS Influenza Virus 2019-07-04 Completed [facility] y of Vaccine 00:00:00 [facility] Influenza Virus 2019-07-04 Completed [facility] y of Vaccine Recomb Quad 00:00:00 [facility], Preserv and ABX Branc h Free 18-64 YRS Influenza Virus 2019-07-04 Completed [facility]it y of Vaccine 00:00:00 [facility] Influenza Virus 2019-07-04 Completed [facility] y of Vaccine Recomb Quad 00:00:00 [facility], Preserv and ABX Branc h Free 18-64 YRS Influenza Virus 2019-07-04 Completed [facility]it y of Vaccine 00:00:00 [facility] Influenza Virus 2019-07-04 Completed [facility] y of Vaccine Recomb Quad 00:00:00 [facility], Preserv and ABX Branc h Free 18-64 YRS Influenza Virus 2019-07-04 Completed [facility]it y of Vaccine 00:00:00 [facility] Influenza Virus 2019-07-04 Completed [facility] y of Vaccine Recomb Quad 00:00:00 [facility], Preserv and ABX Branc h Free 18-64 YRS Influenza Virus 2019-07-04 Completed [facility] y of Vaccine 00:00:00 [facility] Influenza Virus 2019-07-04 Completed [facility] y of Vaccine Recomb Quad 00:00:00 [facility], Preserv and ABX Branc h Free 18-64 YRS Influenza Virus 2019-07-04 Completed [facility] y of Vaccine 00:00:00 [facility] Influenza Virus 2019-07-04 Completed [facility] y of Vaccine Recomb Quad 00:00:00 [facility], Preserv and ABX Branc h Free 18-64 YRS Influenza Virus 2019-07-04 Completed [facility] y of Vaccine 00:00:00 [facility] Influenza Virus 2019-07-04 Completed [facility] y of Vaccine Recomb Quad 00:00:00 [facility], Preserv and ABX Branc h Free 18-64 YRS Influenza Virus 2019-07-04 Completed [facility] y of Vaccine 00:00:00 [facility] Influenza Virus 2019-07-04 Completed [facility] of Vaccine Recomb Quad 00:00:00 [facility], Preserv and ABX Branc h Free 18-64 YRS Influenza Virus 2019-07-04 Completed [facility] y of Vaccine 00:00:00 [facility] Influenza Virus 2019-07-04 Completed [facility] y of Vaccine Recomb Quad 00:00:00 [facility], Preserv and ABX Branc h Free 18-64 YRS Influenza Virus 2019-07-04 Completed [facility] y of Vaccine 00:00:00 [facility] Influenza Virus 2019-07-04 Completed [facility] of Vaccine Recomb Quad 00:00:00 [facility], Preserv and ABX Branc h Free 18-64 YRS Influenza Virus 2019-07-04 Completed [facility] y of Vaccine 00:00:00 [facility] Influenza Virus 2019-07-04 Completed [facility] y of Vaccine Recomb Quad 00:00:00 [facility], Preserv and ABX Branc h Free 18-64 YRS Influenza Virus 2019-07-04 Completed [facility] y of Vaccine 00:00:00 [facility] Influenza Virus 2019-07-04 Completed [facility] y of Vaccine Recomb Quad 00:00:00 [facility], Preserv and ABX Branc h Free 18-64 YRS Influenza Virus 2019-07-04 Completed [facility] y of Vaccine 00:00:00 [facility] Influenza Virus 2019-07-04 Completed [facility] y of Vaccine [facility]comb Quad 00:00:00 [facility], Preserv and ABX Branc h Free 18-64 YRS Influenza Virus 2019-07-04 Completed [facility] y of Vaccine 00:00:00 [facility] Influenza Virus 2019-07-04 Completed [facility] of Vaccine Recomb Quad 00:00:00 [facility], Preserv and ABX Branc h Free 18-64 YRS Influenza Virus 2019-07-04 Completed [facility] y of Vaccine 00:00:00 [facility] Influenza Virus 2019-07-04 Completed [facility] of Vaccine Re[facility] Quad 00:00:00 [facility], Preserv and ABX Branc h Free 18-64 YRS Influenza Virus 2019-07-04 Completed [facility] y of Vaccine 00:00:00 [facility] Influenza Virus 2019-07-04 Completed [facility] of Vaccine Recomb Quad 00:00:00 [facility], Preserv and ABX Branc h Free 18-64 YRS Influenza Virus 2019-07-04 Completed [facility] y of Vaccine 00:00:00 [facility] Influenza Virus 2019-07-04 Completed [facility] y of Vaccine [facility] Quad 00:00:00 [facility], Preserv and ABX Branc h Free 18-64 YRS Influenza Virus 2019-07-04 Completed [facility] y of Vaccine 00:00:00 [facility] Influenza Virus 2019-07-04 Completed [facility] y of Vaccine [facility] Quad 00:00:00 [facility], Preserv and ABX Branc h Free 18-64 YRS Influenza Virus 2019-07-04 Completed [facility] y of Vaccine 00:00:00 [facility] Influenza Virus 2019-07-04 Completed [facility] of Vaccine [facility] Quad 00:00:00 [facility], Preserv and ABX Branc h Free 18-64 YRS Influenza Virus 2019-07-04 Completed [facility] of Vaccine 00:00:00 [facility] Influenza Virus 2019-07-04 Completed [facility] of Vaccine Recomb Quad 00:00:00 [facility], Preserv and ABX Branc h Free 18-64 YRS Influenza Virus 2019-07-04 Completed [facility] y of Vaccine 00:00:00 [facility] Influenza Virus 2019-07-04 Completed [facility] of Vaccine Recomb Quad 00:00:00 [facility], Preserv and ABX Branc h Free 18-64 YRS Influenza Virus 2019-07-04 Completed [facility] of Vaccine 00:00:00 [facility] Influenza Virus 2019-07-04 Completed [facility] of Vaccine Recomb Quad 00:00:00 [facility], Preserv and ABX Branc h Free 18-64 YRS Influenza Virus 2019-07-04 Completed [facility] of Vaccine 00:00:00 [facility] Influenza Virus 2019-07-04 Completed [facility] of Vaccine Recomb Quad 00:00:00 [facility], Preserv and ABX Branc h Free 18-64 YRS Influenza Virus 2019-07-04 Completed [facility] of Vaccine 00:00:00 [facility] Influenza Virus 2019-07-04 Completed [facility] of Vaccine Recomb Quad 00:00:00 [facility], Preserv and ABX Branc h Free 18-64 YRS Influenza Virus 2019-07-04 Completed [facility] of Vaccine 00:00:00 [facility] Influenza Virus 2019-07-04 Completed [facility] of Vaccine Recomb Quad 00:00:00 [facility], Preserv and ABX Branc h Free 18-64 YRS Influenza Virus 2019-07-04 Completed [facility] of Vaccine 00:00:00 [facility] Influenza Virus 2019-07-04 Completed [facility] of Vaccine Recomb Quad 00:00:00 [facility], Preserv and ABX Branc h Free 18-64 YRS Influenza Virus 2019-07-04 Completed [facility] of Vaccine 00:00:00 [facility] Influenza Virus 2019-07-04 Completed [facility] of Vaccine Re[facility] Quad 00:00:00 [facility], Preserv and ABX Branc h Free 18-64 YRS Influenza Virus 2019-07-04 Completed [facility] of Vaccine 00:00:00 [facility] Influenza Virus 2019-07-04 Completed [facility] y of Vaccine Recomb Quad 00:00:00 [facility], Preserv and ABX Branc h Free 18-64 YRS Influenza Virus 2019-07-04 Completed [facility] of Vaccine 00:00:00 [facility] Influenza Virus 2019-07-04 Completed [facility] of Vaccine [facility]comb [facility] 00:00:00 [facility], Preserv and ABX Branc h Free 18-64 YRS Influenza Virus 2019-07-04 Completed [facility] of Vaccine 00:00:00 [facility] Influenza Virus 2019-07-04 Completed [facility] of Vaccine Recomb Quad 00:00:00 [facility], Preserv and ABX Branc h Free 18-64 YRS Influenza Virus 2019-07-04 Completed [facility] of Vaccine 00:00:00 [facility] Influenza Virus 2019-07-04 Completed [facility] of Vaccine [facility] 00:00:00 [facility], Preserv and ABX Branc h Free 18-64 YRS Influenza Virus 2019-07-04 Completed [facility] of Vaccine 00:00:00 [facility] Influenza Virus 2019-07-04 Completed [facility] of Vaccine Recomb Quad 00:00:00 [facility], Preserv and ABX Branc h Free 18-64 YRS Influenza Virus 2018-06-30 Completed [facility]it y of Vaccine Quad IM 3+ 00:00:00 [facility] Influenza Virus 2018-06-30 Completed [facility]it y of Vaccine Quad IM 3+ 00:00:00 [facility] Influenza Virus 2018-06-30 Completed [facility] Vaccine Quad IM 3+ 00:[facility]:00 [facility] [facility] Influenza Virus 2018-06-30 Completed [facility] Vaccine Quad IM 3+ 00:00:00 [facility] Influenza Virus 2018-06-30 Completed [facility] Vaccine Quad IM 3+ 00:00:00 [facility] Influenza Virus 2018-06-30 Completed [facility] Vaccine Quad IM 3+ 00:00:00 [facility] Influenza Virus 2018-06-30 Completed [facility] Vaccine Quad IM 3+ 00:00:00 [facility] Influenza Virus 2018-06-30 Completed [facility] Vaccine Quad IM 3+ 00:00:00 [facility] Influenza Virus 2018-06-30 Completed [facility] Vaccine Quad IM 3+ 00:00:00 [facility] Influenza Virus 2018-06-30 Completed [facility] Vaccine Quad IM 3+ 00:00:00 [facility] Influenza Virus 2018-06-30 Completed [facility] Vaccine Quad IM 3+ 00:00:00 [facility] Influenza Virus 2018-06-30 Completed [facility] Vaccine Quad IM 3+ 00:00:00 [facility] Influenza Virus 2018-06-30 Completed [facility] of Vaccine Quad IM 3+ 00:00:00 [facility] Influenza Virus 2018-06-30 Completed [facility] Vaccine Quad IM 3+ 00:00:00 [facility] Influenza Virus 2018-06-30 Completed [facility] Vaccine Quad IM 3+ 00:00:00 [facility] Influenza Virus 2018-06-30 Completed [facility] of Vaccine Quad IM 3+ 00:00:00 [facility] Influenza Virus 2018-06-30 Completed [facility] of Vaccine Quad IM 3+ 00:00:00 [facility] Influenza Virus 2018-06-30 Completed [facility] of Vaccine Quad IM 3+ 00:00:00 [facility] Influenza Virus 2018-06-30 Completed [facility] of Vaccine Quad IM 3+ 00:00:00 [facility] Influenza Virus 2018-06-30 Completed [facility] Vaccine Quad IM 3+ 00:00:00 [facility] Influenza Virus 2018-06-30 Completed [facility] Vaccine Quad IM 3+ 00:00:00 [facility] Influenza Virus 2018-06-30 Completed [facility] Vaccine Quad IM 3+ 00:00:00 [facility] Influenza Virus 2018-06-30 Completed [facility] Vaccine Quad IM 3+ 00:00:00 [facility] Influenza Virus 2018-06-30 Completed [facility] Vaccine Quad IM 3+ 00:00:00 [facility] Influenza Virus 2018-06-30 Completed [facility] Vaccine Quad IM 3+ 00:00:00 [facility] Influenza Virus 2018-06-30 Completed [facility] Vaccine Quad IM 3+ 00:00:00 [facility] Influenza Virus 2018-06-30 Completed [facility] Vaccine Quad IM 3+ 00:00:00 [facility] Influenza Virus 2018-06-30 Completed [facility] Vaccine Quad IM 3+ 00:00:00 [facility] Influenza Virus 2018-06-30 Completed [facility] Vaccine Quad IM 3+ 00:00:00 [facility] Influenza Virus 2018-06-30 Completed [facility] Vaccine Quad IM 3+ 00:00:00 [facility] Influenza Virus 2018-06-30 Completed [facility] Vaccine Quad IM 3+ 00:00:00 [facility] Influenza Virus 2018-06-30 Completed [facility] Vaccine Quad IM 3+ 00:00:00 [facility] Influenza Virus 2018-06-30 Completed [facility] Vaccine Quad IM 3+ 00:00:00 [facility] Influenza Virus 2018-06-30 Completed [facility] Vaccine Quad IM 3+ 00:00:00 [facility] Influenza Virus 2018-06-30 Completed [facility] Vaccine Quad IM 3+ 00:00:00 [facility] Influenza Virus 2018-06-30 Completed [facility] of Vaccine Quad IM 3+ 00:00:00 [facility] Influenza Virus 2018-06-30 Completed [facility] of Vaccine Quad IM 3+ 00:00:00 [facility] Influenza Virus 2018-06-30 Completed [facility] Vaccine Quad IM 3+ 00:00:00 [facility] Influenza Virus 2018-06-30 Completed [facility] of Vaccine Quad IM 3+ 00:00:00 [facility] Influenza Virus 2018-06-30 Completed [facility] of Vaccine Quad IM 3+ 00:00:00 [facility] Influenza Virus 2018-06-30 Completed [facility] of Vaccine Quad IM 3+ 00:00:00 [facility] Influenza Virus 2018-06-30 Completed [facility] of Vaccine Quad IM 3+ 00:00:00 [facility] Influenza Virus 2018-06-30 Completed [facility] of Vaccine Quad IM 3+ 00:00:00 [facility] Influenza Virus 2018-06-30 Completed [facility] of Vaccine Quad IM 3+ 00:00:00 [facility] Influenza Virus 2018-06-30 Completed [facility] of Vaccine Quad IM 3+ 00:00:00 [facility] Influenza Virus 2018-06-30 Completed [facility] Vaccine Quad IM 3+ 00:00:00 [facility] Influenza Virus 2018-06-30 Completed [facility] Vaccine Quad IM 3+ 00:00:00 [facility] Influenza Virus 2018-06-30 Completed [facility] of Vaccine Quad IM 3+ 00:00:00 [facility] Influenza Virus 2018-06-30 Completed [facility] of Vaccine Quad IM 3+ 00:00:00 [facility] Influenza Virus 2018-06-30 Completed [facility] Vaccine Quad IM 3+ 00:00:00 [facility] Influenza Virus 2018-06-30 Completed [facility] of Vaccine Quad IM 3+ 00:00:00 [facility] Influenza Virus 2018-06-30 Completed [facility] of Vaccine Quad IM 3+ 00:00:00 [facility] Influenza Virus 2018-06-30 Completed [facility] of Vaccine Quad IM 3+ 00:00:00 [facility] Influenza Virus 2018-06-30 Completed [facility] of Vaccine Quad IM 3+ 00:00:00 [facility] Influenza Virus 2018-06-30 Completed [facility] of Vaccine Quad IM 3+ 00:00:00 [facility] Influenza Virus 2018-06-30 Completed [facility] of Vaccine Quad IM 3+ 00:00:00 [facility] Influenza Virus 2018-06-30 Completed [facility] of Vaccine Quad IM 3+ 00:00:00 [facility] Influenza Virus 2018-06-30 Completed [facility] Vaccine Quad IM 3+ 00:00:00 [facility] Influenza Virus 2018-06-30 Completed [facility] of Vaccine Quad IM 3+ 00:00:00 [facility] Influenza Virus 2018-06-30 Completed [facility] of Vaccine Quad IM 3+ 00:00:00 [facility] Influenza Virus 2018-06-30 Completed [facility] of Vaccine Quad IM 3+ 00:00:00 [facility] Influenza Virus 2018-06-30 Completed [facility] Vaccine Quad IM 3+ 00:00:00 [facility] Influenza Virus 2018-06-30 Completed [facility] Vaccine Quad IM 3+ 00:00:00 [facility] Influenza Virus 2018-06-30 Completed [facility] Vaccine Quad IM 3+ 00:00:00 [facility] Influenza Virus 2018-06-30 Completed [facility] Vaccine Quad IM 3+ 00:00:00 [facility] Influenza Virus 2018-06-30 Completed [facility] Vaccine Quad IM 3+ 00:00:00 [facility] Influenza Virus 2018-06-30 Completed [facility] Vaccine Quad IM 3+ 00:00:00 [facility] Influenza Virus 2018-06-30 Completed [facility] of Vaccine Quad IM 3+ 00:00:00 [facility] Influenza Virus 2018-06-30 Completed [facility] Vaccine Quad IM 3+ 00:00:00 [facility] Influenza Virus 2018-06-30 Completed [facility] of Vaccine Quad IM 3+ 00:00:00 [facility] Influenza Virus 2018-06-30 Completed [facility] of Vaccine Quad IM 3+ 00:00:00 [facility] Influenza Virus 2018-06-30 Completed [facility] Vaccine Quad IM 3+ 00:00:00 [facility] Influenza Virus 2018-06-30 Completed [facility] Vaccine Quad IM 3+ 00:00:00 [facility] Influenza Virus 2017-06-15 Completed [facility] of Vaccine Quad ID 18-64 00:00:00 [facility] Influenza Virus 2017-06-15 Completed [facility] of Vaccine Quad ID 18-64 00:00:00 [facility] Influenza Virus 2017-06-15 Completed [facility] of Vaccine Quad ID 18-64 00:00:00 [facility] Influenza Virus 2017-06-15 Completed [facility] of Vaccine Quad ID 18-64 00:00:00 [facility] Influenza Virus 2017-06-15 Completed [facility] of Vaccine Quad ID 18-64 00:00:00 [facility] Influenza Virus 2017-06-15 Completed [facility] of Vaccine Quad ID 18-64 00:00:00 [facility] Influenza Virus 2017-06-15 Completed [facility] of Vaccine Quad ID 18-64 00:00:00 [facility] Influenza Virus 2017-06-15 Completed [facility] of Vaccine Quad ID 18-64 00:00:00 [facility] Influenza Virus 2017-06-15 Completed [facility] [...] [facility] Vaccine Quad IM 00:00:00 [facility] ical Multi-dose 6+ [place] [facility] Influenza Virus 2016-08-05 Completed [facility] Vaccine Quad IM 00:00:00 [facility] ical Multi-dose 6+ [place] Branch Pneumococcal 13 2016-03-07 Completed [facility] of Conjugate, PCV13 00:00:00 [facility] dical (Prevnar 13) Branch Meningococcal B, OMV 2016-03-07 Completed Univ ersity of 00:00:00 [facility] Pneumococcal 13 2016-03-07 Completed [facility] of Conjugate, PCV13 00:00:00 [facility] dical (Prevnar 13) Branch Meningococcal B, OMV 2016-03-07 Completed Univ ersity of 00:00:00 [facility] Pneumococcal 13 2016-03-07 Completed [facility] of Conjugate, PCV13 00:00:00 [facility] dical (Prevnar 13) Branch Meningococcal B, V 2016-03-07 Completed Univ ersity of 00:00:00 [facility] Pneumococcal 13 2016-03-07 Completed [facility] of Conjugate, PCV13 00:00:00 [facility] dical (Prevnar 13) Branch Meningococcal B, V 2016-03-07 Completed Univ ersity of 00:00:00 [facility] Pneumococcal 13 2016-03-07 Completed [facility] of Conjugate, PCV13 00:00:00 [facility] dical (Prevnar 13) Branch Meningococcal B, V 2016-03-07 Completed [facility] ersity of 00:00:00 [facility] Pneumococcal 13 2016-03-07 Completed [facility] of Conjugate, PCV13 00:00:00 [facility] dical (Prevnar 13) Branch Meningococcal B, V 2016-03-07 Completed Univ ersity of 00:00:00 [facility] Pneumococcal 13 2016-03-07 Completed [facility] of Conjugate, PCV13 00:00:00 [facility] dical (Prevnar 13) Branch Meningococcal B, V 2016-03-07 Completed [facility] ersity of 00:00:00 [facility] Pneumococcal 13 2016-03-07 Completed [facility] of Conjugate, PCV13 00:00:00 [facility] dical (Prevnar 13) Branch Meningococcal B, V 2016-03-07 Completed [facility] ersity of 00:00:00 [facility] Pneumococcal 13 2016-03-07 Completed [facility] Conjugate, PCV13 00:00:00 [place] [facility] (Prevnar 13) [facility] Meningococcal B, V 2016-03-07 Completed [facility] ersity of 00:00:00 [facility] Pneumococcal 13 2016-03-07 Completed [facility] of Conjugate, PCV13 00:00:00 [place] [facility] (Prevnar 13) Branch Meningococcal B, [facility] 2016-03-07 Completed Univ ersity of 00:00:00 [facility] Pneumococcal 13 2016-03-07 Completed [facility] Conjugate, PCV13 00:00:00 [place] [facility] (Prevnar 13) [facility] Meningococcal B, [facility] 2016-03-07 Completed Univ ersity of 00:00:00 [facility] Pneumococcal 13 2016-03-07 Completed [facility] of Conjugate, PCV13 00:00:00 [place] [facility] (Prevnar 13) Branch Meningococcal B, [facility] 2016-03-07 Completed Univ ersity of 00:00:00 [facility] Pneumococcal 13 2016-03-07 Completed [facility] of Conjugate, PCV13 00:00:00 [place] [facility] (Prevnar 13) Branch Meningococcal B, [facility] 2016-03-07 Completed Univ ersity of 00:00:00 [facility] Pneumococcal 13 2016-03-07 Completed [facility] of Conjugate, PCV13 00:00:00 [place] [facility] (Prevnar 13) Branch Meningococcal B, [facility] 2016-03-07 Completed Univ ersity of 00:00:00 [facility] Pneumococcal 13 2016-03-07 Completed [facility] of Conjugate, PCV13 00:00:00 [place] [facility] (Prevnar 13) Branch Meningococcal B, [facility] 2016-03-07 Completed [facility] ersity of 00:00:00 [facility] Pneumococcal 13 2016-03-07 Completed [facility] Conjugate, PCV13 00:00:00 [place] [facility] (Prevnar 13) Branch Meningococcal B, [facility] 2016-03-07 Completed [facility] ersity of 00:00:00 [facility] Pneumococcal 13 2016-03-07 Completed [facility] of Conjugate, PCV13 00:00:00 [place] [facility] (Prevnar 13) Branch Meningococcal B, [facility] 2016-03-07 Completed Univ ersity of 00:00:00 [facility] Pneumococcal 13 2016-03-07 Completed [facility] of Conjugate, PCV13 00:00:00 [place] [facility] (Prevnar 13) Branch Meningococcal B, [facility] 2016-03-07 Completed Univ ersity of 00:00:00 [facility] Pneumococcal 13 2016-03-07 Completed [facility] of Conjugate, PCV13 00:00:00 [place] [facility] (Prevnar 13) Branch Meningococcal B, [facility] 2016-03-07 Completed Univ ersity of 00:00:00 [facility] Branch Pneumococcal 13 2016-03-07 Completed [facility] of Conjugate, PCV13 00:00:00 [place] [facility] (Prevnar 13) Branch Meningococcal B, [facility] 2016-03-07 Completed [facility] ersity of 00:00:00 [facility] Pneumococcal 13 2016-03-07 Completed [facility] of Conjugate, PCV13 00:00:00 [facility] dical (Prevnar 13) Branch Meningococcal B, [facility] 2016-03-07 Completed Univ ersity of 00:00:00 [facility] Pneumococcal 13 2016-03-07 Completed [facility] of Conjugate, PCV13 00:00:00 [facility] dical (Prevnar 13) Branch Meningococcal B, [facility] 2016-03-07 Completed Univ ersity of 00:00:00 [facility] Pneumococcal 13 2016-03-07 Completed [facility] Conjugate, PCV13 00:00:00 [place] [facility] (Prevnar 13) Branch Meningococcal B, [facility] 2016-03-07 Completed [facility] ersity of 00:00:00 [facility] Pneumococcal 13 2016-03-07 Completed [facility] of Conjugate, PCV13 00:00:00 [facility] dical (Prevnar 13) Branch Meningococcal B, [facility] 2016-03-07 Completed [facility] ersity of 00:00:00 [facility] Pneumococcal 13 2016-03-07 Completed [facility] of Conjugate, PCV13 00:00:00 [place] [facility] (Prevnar 13) Branch Meningococcal B, [facility] 2016-03-07 Completed Univ ersity of 00:00:00 [facility] Pneumococcal 13 2016-03-07 Completed [facility] of Conjugate, PCV13 00:00:00 [facility] dical (Prevnar 13) Branch Meningococcal B, [facility] 2016-03-07 Completed Univ ersity of 00:00:00 [facility] Pneumococcal 13 2016-03-07 Completed [facility] of Conjugate, PCV13 00:00:00 [place] [facility] (Prevnar 13) Branch Meningococcal B, [facility] 2016-03-07 Completed Univ ersity of 00:00:00 [facility] Pneumococcal 13 2016-03-07 Completed [facility] y of Conjugate, PCV13 00:00:00 [place] [facility] (Prevnar 13) Branch Meningococcal B, [facility] 2016-03-07 Completed Univ ersity of 00:00:00 [facility] Pneumococcal 13 2016-03-07 Completed [facility] y of Conjugate, PCV13 00:00:00 [place] [facility] (Prevnar 13) Branch Meningococcal B, [facility] 2016-03-07 Completed Univ ersity of 00:00:00 [facility] Pneumococcal 13 2016-03-07 Completed [facility] y of Conjugate, PCV13 00:00:00 [place] [facility] (Prevnar 13) Branch Meningococcal B, [facility] 2016-03-07 Completed Univ ersity of 00:00:00 [facility] Pneumococcal 13 2016-03-07 Completed [facility] of Conjugate, PCV13 00:00:00 [place] [facility] (Prevnar 13) Branch Meningococcal B, [facility] 2016-03-07 Completed [facility] ersity of 00:00:00 [facility] Pneumococcal 13 2016-03-07 Completed [facility] y of Conjugate, PCV13 00:00:00 [place] [facility] (Prevnar 13) Branch Meningococcal B, [facility] 2016-03-07 Completed Univ ersity of 00:00:00 [facility] Pneumococcal 13 2016-03-07 Completed [facility] y of Conjugate, PCV13 00:00:00 [place] [facility] (Prevnar 13) Branch Meningococcal B, [facility] 2016-03-07 Completed Univ ersity of 00:00:00 [facility] Pneumococcal 13 2016-03-07 Completed [facility] y of Conjugate, PCV13 00:00:00 [place] [facility] (Prevnar 13) Branch Meningococcal B, [facility] 2016-03-07 Completed Univ ersity of 00:00:00 [facility] Pneumococcal 13 2016-03-07 Completed [facility] of Conjugate, PCV13 00:00:00 [place] [facility] (Prevnar 13) Branch Meningococcal B, [facility] 2016-03-07 Completed Univ ersity of 00:00:00 [facility] Pneumococcal 13 2016-03-07 Completed [facility] y of Conjugate, PCV13 00:00:00 [place] [facility] (Prevnar 13) Branch Meningococcal B, V 2016-03-07 Completed Univ ersity of 00:00:00 [facility] Pneumococcal 13 2016-03-07 Completed [facility] y of Conjugate, PCV13 00:00:00 [place] [facility] (Prevnar 13) Branch Meningococcal B, V 2016-03-07 Completed Univ ersity of 00:00:00 [facility] Pneumococcal 13 2016-03-07 Completed [facility] y of Conjugate, PCV13 00:00:00 [place] [facility] (Prevnar 13) Branch Meningococcal B, V 2016-03-07 Completed [facility] ersity of 00:00:00 [facility] Pneumococcal 13 2016-03-07 Completed [facility] y of Conjugate, PCV13 00:00:00 [place] [facility] (Prevnar 13) Branch Meningococcal B, V 2016-03-07 Completed [facility] ers[facility] of 00:00:00 [facility] Pneumococcal 13 2016-03-07 Completed [facility] y of Conjugate, PCV13 00:00:00 [place] [facility] (Prevnar 13) Branch Meningococcal B, [facility] 2016-03-07 Completed Univ ersity of 00:00:00 [facility] Pneumococcal 13 2016-03-07 Completed [facility] y of Conjugate, PCV13 00:00:00 [place] [facility] (Prevnar 13) Branch Meningococcal B, [facility] 2016-03-07 Completed Univ ersity of 00:00:00 [facility] Pneumococcal 13 2016-03-07 Completed [facility] y of Conjugate, PCV13 00:00:00 [place] [facility] (Prevnar 13) Branch Meningococcal B, V 2016-03-07 Completed [facility] ers[facility] of 00:00:00 [facility] Pneumococcal 13 2016-03-07 Completed [facility] y of Conjugate, PCV13 00:00:00 [place] [facility] (Prevnar 13) Branch Meningococcal B, [facility] 2016-03-07 Completed [facility] ersity of 00:00:00 [facility] Pneumococcal 13 2016-03-07 Completed [facility] y of Conjugate, PCV13 00:00:00 [place] [facility] (Prevnar 13) Branch Meningococcal B, V 2016-03-07 Completed [facility] ers[facility] of 00:00:00 [facility] Pneumococcal 13 2016-03-07 Completed [facility] y of Conjugate, PCV13 00:00:00 [facility] dical (Prevnar 13) Branch Meningococcal B, V 2016-03-07 Completed [facility] ersity of 00:00:00 [facility] Pneumococcal 13 2016-03-07 Completed [facility] y of Conjugate, PCV13 00:00:00 [place] [facility] (Prevnar 13) Branch Meningococcal B, V 2016-03-07 Completed [facility] ers[facility] of 00:00:00 [facility] Pneumococcal 13 2016-03-07 Completed [facility] y of Conjugate, PCV13 00:00:00 [place] [facility] (Prevnar 13) Branch Meningococcal B, V 2016-03-07 Completed [facility] ers[facility] of 00:00:00 [facility] Pneumococcal 13 2016-03-07 Completed [facility] y of Conjugate, PCV13 00:00:00 [place] [facility] (Prevnar 13) Branch Meningococcal B, V 2016-03-07 Completed [facility] ers[facility] of 00:00:00 [facility] Pneumococcal 13 2016-03-07 Completed [facility] y of Conjugate, PCV13 00:00:00 [place] [facility] (Prevnar 13) Branch Meningococcal B, [facility] 2016-03-07 Completed [facility] ersity of 00:00:00 [facility] Pneumococcal 13 2016-03-07 Completed [facility] y of Conjugate, PCV13 00:00:00 [place] [facility] (Prevnar 13) Branch Meningococcal B, [facility] 2016-03-07 Completed [facility] ersity of 00:00:00 [facility] Pneumococcal 13 2016-03-07 Completed [facility] y of Conjugate, PCV13 00:00:00 [place] [facility] (Prevnar 13) Branch Meningococcal B, V 2016-03-07 Completed [facility] ers[facility] of 00:00:00 [facility] Pneumococcal 13 2016-03-07 Completed [facility] y of Conjugate, PCV13 00:00:00 [place] [facility] (Prevnar 13) Branch Meningococcal B, [facility] 2016-03-07 Completed [facility] ersity of 00:00:00 [facility] Pneumococcal 13 2016-03-07 Completed [facility] y of Conjugate, PCV13 00:00:00 [place] [facility] (Prevnar 13) Branch Meningococcal B, [facility] 2016-03-07 Completed [facility] ersity of 00:00:00 [facility] Pneumococcal 13 2016-03-07 Completed [facility] y of Conjugate, PCV13 00:00:00 [place] [facility] (Prevnar 13) Branch Meningococcal B, [facility] 2016-03-07 Completed [facility] ersity of 00:00:00 [facility] Pneumococcal 13 2016-03-07 Completed [facility] y of Conjugate, PCV13 00:00:00 [place] [facility] (Prevnar 13) Branch Meningococcal B, V 2016-03-07 Completed [facility] ers[facility] of 00:00:00 [facility] Pneumococcal 13 2016-03-07 Completed [facility] y of Conjugate, PCV13 00:00:00 [place] [facility] (Prevnar 13) Branch Meningococcal B, V 2016-03-07 Completed [facility] ers[facility] of 00:00:00 [facility] Pneumococcal 13 2016-03-07 Completed [facility] y of Conjugate, PCV13 00:00:00 [place] [facility] (Prevnar 13) Branch Meningococcal B, [facility] 2016-03-07 Completed [facility] ersity of 00:00:00 [facility] Pneumococcal 13 2016-03-07 Completed [facility] y of Conjugate, PCV13 00:00:00 [place] [facility] (Prevnar 13) Branch Meningococcal B, [facility] 2016-03-07 Completed [facility] ersity of 00:00:00 [facility] Pneumococcal 13 2016-03-07 Completed [facility] y of Conjugate, PCV13 00:00:00 [place] [facility] (Prevnar 13) Branch Meningococcal B, [facility] 2016-03-07 Completed [facility] ersity of 00:00:00 [facility] Pneumococcal 13 2016-03-07 Completed [facility] y of Conjugate, PCV13 00:00:00 [place] [facility] (Prevnar 13) Branch Meningococcal B, [facility] 2016-03-07 Completed [facility] ers[facility] of 00:00:00 [facility] Pneumococcal 13 2016-03-07 Completed [facility] y of Conjugate, PCV13 00:00:00 [place] [facility] (Prevnar 13) Branch Meningococcal B, [facility] 2016-03-07 Completed [facility] ers[facility] of 00:00:00 [facility] Pneumococcal 13 2016-03-07 Completed [facility] y of Conjugate, PCV13 00:00:00 [place] [facility] (Prevnar 13) Branch Meningococcal B, [facility] 2016-03-07 Completed [facility] ers[facility] of 00:00:00 [facility] Pneumococcal 13 2016-03-07 Completed [facility] y of Conjugate, PCV13 00:00:00 [place] [facility] (Prevnar 13) Branch Meningococcal B, [facility] 2016-03-07 Completed [facility] ers[facility] of 00:00:00 [facility] Pneumococcal 13 2016-03-07 Completed [facility] y of Conjugate, PCV13 00:00:00 [place] [facility] (Prevnar 13) Branch Meningococcal B, V 2016-03-07 Completed [facility] ers[facility] of 00:00:00 [facility] Pneumococcal 13 2016-03-07 Completed [facility] y of Conjugate, PCV13 00:00:00 [place] [facility] (Prevnar 13) Branch Meningococcal B, V 2016-03-07 Completed Univ ersity of 00:00:00 [facility] Pneumococcal 13 2016-03-07 Completed Universit y of Conjugate, PCV13 00:00:00 [place] [facility] (Prevnar 13) Branch Meningococcal B, V 2016-03-07 Completed Univ ersity of 00:00:00 [facility] Pneumococcal 13 2016-03-07 Completed Universit y of Conjugate, PCV13 00:00:00 [place] [facility] (Prevnar 13) Branch Meningococcal B, [facility] 2016-03-07 Completed Univ ersity of 00:00:00 [facility] Pneumococcal 13 2016-03-07 Completed Universit y of Conjugate, PCV13 00:00:00 [place] [facility] (Prevnar 13) Branch Meningococcal B, [facility] 2016-03-07 Completed Univ ersity of 00:00:00 [facility] Pneumococcal 13 2016-03-07 Completed Universit y of Conjugate, PCV13 00:00:00 [place] [facility] (Prevnar 13) Branch Meningococcal B, [facility] 2016-03-07 Completed Univ ersity of 00:00:00 [facility] Pneumococcal 13 2016-03-07 Completed Universit y of Conjugate, PCV13 00:00:00 [place] [facility] (Prevnar 13) Branch Meningococcal B, [facility] 2016-03-07 Completed Univ ersity of 00:00:00 [facility] Pneumococcal 13 2016-03-07 Completed Universit y of Conjugate, PCV13 00:00:00 [place] [facility] (Prevnar 13) Branch Meningococcal B, [facility] 2016-03-07 Completed Univ ersity of 00:00:00 [facility] Pneumococcal 13 2016-03-07 Completed Universit y of Conjugate, PCV13 00:00:00 [place] [facility] (Prevnar 13) Branch Meningococcal B, [facility] 2016-03-07 Completed Univ ersity of 00:00:00 [facility] Pneumococcal 13 2016-03-07 Completed Universit y of Conjugate, PCV13 00:00:00 [facility] (Prevnar 13) Branch Meningococcal B, OMV 2016-03-07 Completed Univ ersity of 00:00:00 [facility] Heamophilus Influenza 2015-11-13 Completed Uni versity of B 00:00:00 [facility] Heamophilus Influenza 2015-11-13 Completed Uni versity of B 00:00:00 [facility] Heamophilus Influenza 2015-11-13 Completed Uni versity of B 00:00:00 [facility] Heamophilus Influenza 2015-11-13 Completed Uni versity of B 00:00:00 [facility] Heamophilus Influenza 2015-11-13 Completed Uni versity of B 00:00:00 [facility] Heamophilus Influenza 2015-11-13 Completed Uni versity of B 00:00:00 [facility] Heamophilus Influenza 2015-11-13 Completed Uni versity of B 00:00:00 [facility] Heamophilus Influenza 2015-11-13 Completed Uni versity of B 00:00:00 [facility] Heamophilus Influenza 2015-11-13 Completed Uni versity of B 00:00:00 [facility] Heamophilus Influenza 2015-11-13 Completed Uni versity of B 00:00:00 [facility] Heamophilus Influenza 2015-11-13 Completed Uni versity of B 00:00:00 [facility] Heamophilus Influenza 2015-11-13 Completed Uni versity of B 00:00:00 [facility] Heamophilus Influenza 2015-11-13 Completed Uni versity of B 00:00:00 [facility] Heamophilus Influenza 2015-11-13 Completed Uni versity of B 00:00:00 [facility] Heamophilus Influenza 2015-11-13 Completed Uni versity of B 00:00:00 [facility] Heamophilus Influenza 2015-11-13 Completed Uni versity of B 00:00:00 [facility] Heamophilus Influenza 2015-11-13 Completed Uni versity of B 00:00:00 [facility] Heamophilus Influenza 2015-11-13 Completed Uni versity of B 00:00:00 [facility] Heamophilus Influenza 2015-11-13 Completed Uni versity of B 00:00:00 [facility] Heamophilus Influenza 2015-11-13 Completed Uni versity of B 00:00:00 [facility] Heamophilus Influenza 2015-11-13 Completed Uni versity of B 00:00:00 [facility] Heamophilus Influenza 2015-11-13 Completed Uni versity of B 00:00:00 [facility] Heamophilus Influenza 2015-11-13 Completed Uni versity of B 00:00:00 [facility] Heamophilus Influenza 2015-11-13 Completed Uni versity of B 00:00:00 [facility] Heamophilus Influenza 2015-11-13 Completed Uni versity of B 00:00:00 [facility] Heamophilus Influenza 2015-11-13 Completed Uni versity of B 00:00:00 [facility] Heamophilus Influenza 2015-11-13 Completed Uni versity of B 00:00:00 [facility] Heamophilus Influenza 2015-11-13 Completed Uni versity of B 00:00:00 [facility] Heamophilus Influenza 2015-11-13 Completed Uni versity of B 00:00:00 [facility] Heamophilus Influenza 2015-11-13 Completed Uni versity of B 00:00:00 [facility] Heamophilus Influenza 2015-11-13 Completed Uni versity of B 00:00:00 [facility] Heamophilus Influenza 2015-11-13 Completed Uni versity of B 00:00:00 [facility] Heamophilus Influenza 2015-11-13 Completed Uni versity of B 00:00:00 [facility] Heamophilus Influenza 2015-11-13 Completed Uni versity of B 00:00:00 [facility] Heamophilus Influenza 2015-11-13 Completed Uni versity of B 00:00:00 [facility] Heamophilus Influenza 2015-11-13 Completed Uni versity of B 00:00:00 [facility] Heamophilus Influenza 2015-11-13 Completed Uni versity of B 00:00:00 [facility] Heamophilus Influenza 2015-11-13 Completed Uni versity of B 00:00:00 [facility] Heamophilus Influenza 2015-11-13 Completed Uni versity of B 00:00:00 [facility] Heamophilus Influenza 2015-11-13 Completed Uni versity of B 00:00:00 [facility] Heamophilus Influenza 2015-11-13 Completed Uni versity of B 00:00:00 [facility] Heamophilus Influenza 2015-11-13 Completed Uni versity of B 00:00:00 [facility] Heamophilus Influenza 2015-11-13 Completed Uni versity of B 00:00:00 [facility] Heamophilus Influenza 2015-11-13 Completed Uni versity of B 00:00:00 [facility] Heamophilus Influenza 2015-11-13 Completed Uni versity of B 00:00:00 [facility] Heamophilus Influenza 2015-11-13 Completed Uni versity of B 00:00:00 [facility] Heamophilus Influenza 2015-11-13 Completed Uni versity of B 00:00:00 [facility] Heamophilus Influenza 2015-11-13 Completed Uni versity of B 00:00:00 [facility] Heamophilus Influenza 2015-11-13 Completed Uni versity of B 00:00:00 [facility] Heamophilus Influenza 2015-11-13 Completed Uni versity of B 00:00:00 [facility] Heamophilus Influenza 2015-11-13 Completed Uni versity of B 00:00:00 [facility] Heamophilus Influenza 2015-11-13 Completed Uni versity of B 00:00:00 [facility] Heamophilus Influenza 2015-11-13 Completed Uni versity of B 00:00:00 [facility] Heamophilus Influenza 2015-11-13 Completed Uni versity of B 00:00:00 [facility] Heamophilus Influenza 2015-11-13 Completed Uni versity of B 00:00:00 [facility] Heamophilus Influenza 2015-11-13 Completed Uni versity of B 00:00:00 [facility] Heamophilus Influenza 2015-11-13 Completed Uni versity of B 00:00:00 [facility] Heamophilus Influenza 2015-11-13 Completed Uni versity of B 00:00:00 [facility] Heamophilus Influenza 2015-11-13 Completed Uni versity of B 00:00:00 [facility] Heamophilus Influenza 2015-11-13 Completed Uni versity of B 00:00:00 [facility] Heamophilus Influenza 2015-11-13 Completed Uni versity of B 00:00:00 [facility] Heamophilus Influenza 2015-11-13 Completed Uni versity of B 00:00:00 [facility] Heamophilus Influenza 2015-11-13 Completed Uni versity of B 00:00:00 [facility] Heamophilus Influenza 2015-11-13 Completed Uni versity of B 00:00:00 [facility] Heamophilus Influenza 2015-11-13 Completed Uni versity of B 00:00:00 [facility] Heamophilus Influenza 2015-11-13 Completed Uni versity of B 00:00:00 [facility] Heamophilus Influenza 2015-11-13 Completed Uni versity of B 00:00:00 [facility] Heamophilus Influenza 2015-11-13 Completed Uni versity of B 00:00:00 [facility] Heamophilus Influenza 2015-11-13 Completed Uni versity of B 00:00:00 [facility] Heamophilus Influenza 2015-11-13 Completed Uni versity of B 00:00:00 [facility] Heamophilus Influenza 2015-11-13 Completed Uni versity of B 00:00:00 [facility] Heamophilus Influenza 2015-11-13 Completed Uni versity of B 00:00:00 [facility] Heamophilus Influenza 2015-11-13 Completed Uni versity of B 00:00:00 [facility] Meningococcal 2015-11-12 Completed University of Polysaccharide 00:00:00 [place] [facility] (groups A, C, Y and Branc h W-135) conjugate vaccine (MCV4P) Meningococcal 2015-11-12 Completed University of Polysaccharide 00:00:00 [place] [facility] (groups A, C, Y and [...] Meningococcal 2015-11-12 Completed University of Polysaccharide 00:00:00 [place] [facility] (groups A, C, Y and Branc h W-135) conjugate vaccine (MCV4P) Meningococcal 2015-11-12 Completed University of Polysaccharide 00:00:00 [place] [facility] (groups A, C, Y and Branc h W-135) conjugate vaccine (MCV4P) TDAP 2015-10-31 Completed University of 00:00:00 [facility] TDAP 2015-10-31 Completed University of 00:00:00 [facility] TDAP 2015-10-31 Completed University of 00:00:00 [facility] TDAP 2015-10-31 Completed University of 00:00:00 [facility] TDAP 2015-10-31 Completed University of 00:00:00 [facility] TDAP 2015-10-31 Completed University of 00:00:00 [facility] TDAP 2015-10-31 Completed University of 00:00:00 [facility] TDAP 2015-10-31 Completed University of 00:00:00 [facility] TDAP 2015-10-31 Completed University of 00:00:00 [facility] TDAP 2015-10-31 Completed University of 00:00:00 [facility] TDAP 2015-10-31 Completed University of 00:00:00 [facility] TDAP 2015-10-31 Completed University of 00:00:00 [facility] TDAP 2015-10-31 Completed University of 00:00:00 [facility] TDAP 2015-10-31 Completed University of 00:00:00 [facility] TDAP 2015-10-31 Completed University of 00:00:00 [facility] TDAP 2015-10-31 Completed University of 00:00:00 [facility] TDAP 2015-10-31 Completed University of 00:00:00 [facility] TDAP 2015-10-31 Completed University of 00:00:00 [facility] TDAP 2015-10-31 Completed University of 00:00:00 [facility] TDAP 2015-10-31 Completed University of 00:00:00 [facility] TDAP 2015-10-31 Completed University of 00:00:00 [facility] TDAP 2015-10-31 Completed University of 00:00:00 [facility] TDAP 2015-10-31 Completed University of 00:00:00 [facility] TDAP 2015-10-31 Completed University of 00:00:00 [facility] TDAP 2015-10-31 Completed University of 00:00:00 [facility] TDAP 2015-10-31 Completed University of 00:00:00 [facility] TDAP 2015-10-31 Completed University of 00:00:00 [facility] TDAP 2015-10-31 Completed University of 00:00:00 [facility] TDAP 2015-10-31 Completed University of 00:00:00 [facility] TDAP 2015-10-31 Completed University of 00:00:00 [facility] TDAP 2015-10-31 Completed University of 00:00:00 [facility] TDAP 2015-10-31 Completed University of 00:00:00 [facility] TDAP 2015-10-31 Completed University of 00:00:00 [facility] TDAP 2015-10-31 Completed University of 00:00:00 [facility] TDAP 2015-10-31 Completed University of 00:00:00 [facility] TDAP 2015-10-31 Completed University of 00:00:00 [facility] TDAP 2015-10-31 Completed University of 00:00:00 [facility] TDAP 2015-10-31 Completed University of 00:00:00 [facility] TDAP 2015-10-31 Completed University of 00:00:00 [facility] TDAP 2015-10-31 Completed University of 00:00:00 [facility] TDAP 2015-10-31 Completed University of 00:00:00 [facility] TDAP 2015-10-31 Completed University of 00:00:00 [facility] TDAP 2015-10-31 Completed University of 00:00:00 [facility] TDAP 2015-10-31 Completed University of 00:00:00 [facility] TDAP 2015-10-31 Completed University of 00:00:00 [facility] TDAP 2015-10-31 Completed University of 00:00:00 [facility] TDAP 2015-10-31 Completed University of 00:00:00 [facility] TDAP 2015-10-31 Completed University of 00:00:00 [facility] TDAP 2015-10-31 Completed University of 00:00:00 [facility] TDAP 2015-10-31 Completed University of 00:00:00 [facility] TDAP 2015-10-31 Completed University of 00:00:00 [facility] TDAP 2015-10-31 Completed University of 00:00:00 [facility] TDAP 2015-10-31 Completed University of 00:00:00 [facility] TDAP 2015-10-31 Completed University of 00:00:00 [facility] TDAP 2015-10-31 Completed University of 00:00:00 [facility] TDAP 2015-10-31 Completed University of 00:00:00 [facility] TDAP 2015-10-31 Completed University of 00:00:00 [facility] TDAP 2015-10-31 Completed University of 00:00:00 [facility] TDAP 2015-10-31 Completed University of 00:00:00 [facility] TDAP 2015-10-31 Completed University of 00:00:00 [facility] TDAP 2015-10-31 Completed University of 00:00:00 [facility] TDAP 2015-10-31 Completed University of 00:00:00 [facility] TDAP 2015-10-31 Completed University of 00:00:00 [facility] TDAP 2015-10-31 Completed University of 00:00:00 [facility] TDAP 2015-10-31 Completed University of 00:00:00 [facility] TDAP 2015-10-31 Completed University of 00:00:00 [facility] TDAP 2015-10-31 Completed University of 00:00:00 [facility] TDAP 2015-10-31 Completed University of 00:00:00 [facility] TDAP 2015-10-31 Completed University of 00:00:00 [facility] TDAP 2015-10-31 Completed University of 00:00:00 [facility] TDAP 2015-10-31 Completed University of 00:00:00 [facility] TDAP 2015-10-31 Completed University of 00:00:00 [facility] TDAP 2015-10-31 Completed University of 00:00:00 [facility] Pneumococcal 2014-04-01 Completed University o [...] [place] [facility] PPSV23 (PNEUMOVAX) Branch Pneumococcal 2013-04-29 Completed University o f Polysaccharide, 00:00:00 [place] [facility] PPSV23 (PNEUMOVAX) Branch Pneumococcal 2013-04-29 Completed University o f Polysaccharide, 00:00:00 [place] [facility] PPSV23 (PNEUMOVAX) Branch Pneumococcal 2013-04-29 Completed University o f Polysaccharide, 00:00:00 [place] [facility] PPSV23 (PNEUMOVAX) Branch Pneumococcal 2013-04-29 Completed University o f Polysaccharide, 00:00:00 [place] [facility] PPSV23 (PNEUMOVAX) Branch Vital Signs Vital Name Observation Time Observation Value Comments Source Systolic blood 2022-10-07 19:00:00 125 mm[Hg] Univer sity of pressure [facility] Diastolic blood 2022-10-07 19:00:00 78 [facility]07 19:00:00 85 /min [facility] Respiratory rate 2022-10-07 19:00:00 18 /min [facility] Oxygen saturation in 2022-10-07 19:00:00 100 /min [facility] Arterial blood by [facility] Pulse oximetry Branch Body temperature 2022-10-07 17:09:00 37.28 Melissa [facility] Body height 2022-10-07 17:09:00 157.5 cm [facility] Body weight 2022-10-07 17:09:00 102.059 kg [facility] BMI 2022-10-07 17:09:00 41.15 kg/m2 [facility] Systolic blood 2022-10-07 14:03:00 119 mm[Hg] Univer sity of pressure [facility] Diastolic blood 2022-10-07 14:03:00 81 mm[Hg] Unive rsity of pressure [facility] Heart rate 2022-10-07 14:03:00 104 /min [facility] Body temperature 2022-10-07 14:03:00 36.28 Melissa [facility] ers[facility] of [facility] Body height 2022-10-07 14:03:00 157.5 cm [facility] Body weight 2022-10-07 14:03:00 102.377 kg [facility] BMI 2022-10-07 14:03:00 41.28 kg/m2 [facility] Oxygen saturation in 2022-10-07 14:03:00 100 /min University of Arterial blood by [facility] Pulse oximetry Branch Systolic blood 2022-09-03 17:29:00 97 mm[Hg] Univer sity of pressure [facility] Diastolic blood 2022-09-03 17:29:00 64 mm[Hg] Unive rsity of pressure [facility] Heart rate 2022-09-03 17:29:00 95 /min [facility] Body temperature 2022-09-03 17:29:00 37.17 Melissa [facility] Body height 2022-09-03 17:29:00 157.5 cm [facility] Body weight 2022-09-03 17:29:00 101.606 kg [facility] BMI 2022-09-03 17:29:00 40.97 kg/m2 [facility] Oxygen saturation in 2022-09-03 17:29:00 96 /min University of Arterial blood by [place] [facility] Pulse oximetry [facility] Systolic blood 2022-08-24 14:41:00 115 mm[Hg] Univer sity of pressure [facility] Diastolic blood 2022-08-24 14:41:00 77 mm[Hg] Unive rsity of pressure [facility] Heart rate 2022-08-24 14:41:00 105 /min [facility] Body temperature 2022-08-24 14:41:00 36.61 Melissa [facility] Body weight 2022-08-24 14:41:00 102.967 kg [facility] BMI 2022-08-24 14:41:00 41.52 kg/m2 [facility] Systolic blood 2022-07-27 13:03:00 112 mm[Hg] Univer sity of pressure [facility] Diastolic blood 2022-07-27 13:03:00 75 mm[Hg] Unive rsity of pressure [facility] Heart rate 2022-07-27 13:03:00 98 /min [facility] Body temperature 2022-07-27 13:03:00 36.83 Melissa [facility] Body weight 2022-07-27 13:03:00 102.967 kg [facility] BMI 2022-07-27 13:03:00 41.52 kg/m2 [facility] Oxygen saturation in 2022-07-27 13:03:00 94 /min [facility] of Arterial blood by [place] [facility] Pulse oxim[facility] Systolic blood 2022-06-17 15:45:00 104 mm[Hg] Univer sity of pressure [facility] Diastolic blood 2022-06-17 15:45:00 69 mm[Hg] Unive rsity of pressure [facility] Heart rate 2022-06-17 15:45:00 97 /min [facility] Body height 2022-06-17 15:45:00 157.5 cm [facility] Body weight 2022-06-17 15:45:00 101.878 kg [facility] BMI 2022-06-17 15:45:00 41.08 kg/m2 [facility] Oxygen saturation in 2022-06-17 15:45:00 98 /min [facility] of Arterial blood by [place] [facility] Pulse oxim[facility] Systolic blood 2022-06-15 13:01:00 101 mm[Hg] Univer sity of pressure [facility] Diastolic blood 2022-06-15 13:01:00 68 mm[Hg] Unive rsity of pressure [facility] Heart rate 2022-06-15 13:01:00 74 /min [facility] Body temperature 2022-06-15 13:01:00 36.89 Melissa [facility] Body weight 2022-06-15 13:01:00 102.967 kg [facility] BMI 2022-06-15 13:01:00 41.52 kg/m2 [facility] Systolic blood 2022-03-27 12:44:00 131 mm[Hg] Univer sity of pressure [facility] Diastolic blood 2022-03-27 12:44:00 83 mm[Hg] Unive rsity of pressure [facility] Heart rate 2022-03-27 12:44:00 102 /min [facility] Body temperature 2022-03-27 12:44:00 37.11 Melissa [facility] Respiratory rate 2022-03-27 12:44:00 18 /min [facility] Body height 2022-03-27 12:44:00 157.5 cm [facility] Body weight 2022-03-27 12:44:00 96.616 kg [facility] BMI 2022-03-27 12:44:00 38.96 kg/m2 [facility] Oxygen saturation in 2022-03-27 12:44:00 98 /min University of Arterial blood by [facility] Pulse oximetry Branch Systolic blood 2022-03-02 15:40:00 113 mm[Hg] Univer sity of pressure [facility] Diastolic blood 2022-03-02 15:40:00 72 mm[Hg] Unive rsity of pressure [facility] Heart rate 2022-03-02 15:40:00 82 /min [facility] Respiratory rate 2022-03-02 15:40:00 16 /min [facility] Oxygen saturation in 2022-03-02 15:40:00 97 /min University of Arterial blood by [facility] Pulse oximetry Branch Body temperature 2022-03-02 15:23:00 36.28 Melissa [facility] Body weight 2022-02-24 17:00:00 100.245 kg [facility] BMI 2022-02-24 17:00:00 40.42 kg/m2 Universi ty [facility] Systolic blood 2022-03-02 15:25:00 98 mm[Hg] Univer sity of pressure [facility] Diastolic blood 2022-03-02 15:25:00 55 mm[Hg] Unive rsity of pressure [facility] Heart rate 2022-03-02 15:25:00 85 /[facility] Respiratory rate 2022-03-02 15:25:00 18 /min [facility] Oxygen saturation in 2022-03-02 15:25:00 100 /min [facility] Arterial blood by [facility] Pulse oximetry [place] Body temperature 2022-03-02 15:23:00 36.28 Melissa [facility] 2022-02-24 17:00:00 100.245 kg [facility] BMI 2022-02-24 17:00:00 40.42 kg/m2 [facility] Procedures Procedure Date / Time Performing Source Performed Clinician LACTIC ACID WHOLE BLOOD 2022-10-07 Destiny Oneill [facility] ty of 18:28:00 [facility] LIPASE 2022-10-07 [facility] of 18:16:00 [facility] COMP. METABOLIC PANEL ([id number]) 2022-10-07 Destiny Oneill [facility] of 18:16:00 [facility] CBC WITH DIFF 2022-10-07 Destiny Oneill [place] of 18:16:00 [facility] URINALYSIS 2022-10-07 Destniy Oneill [place] of 18:16:00 [facility] CONSENT/REFUSAL FOR DIAGNOSIS AND 2022-10-07 [facility] of TREATMENT 16:58:17 Unassigned, No [facility] POCT HEMOGLOBIN A1C TEST 2022-08-24 Tray Jolly [facility] ity of 00:00:00 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) Br anch MEDICATION CORRESPONDENCE 2022-07-19 Doctor [facility] of 05:01:00 Unassigned, No [facility] DISABILITY/FMLA 2022-07-01 Doctor [place] of 05:01:00 Unassigned, No [facility] MR THORACIC SPINE WO CONTRAST 2022-06-30 Brunilda, Stella [facility] of 16:22:01 [facility] MR CERVICAL SPINE WO CONTRAST 2022-06-30 Brunilda, Crystal [facility] of 16:20:35 [facility] CONSENT/REFUSAL FOR DIAGNOSIS AND 2022-06-30 Doctor [facility] 14:32:21 Unassigned, No [facility] CONSENT/REFUSAL FOR DIAGNOSIS AND 2022-06-30 Doctor [facility] 14:32:20 Unassigned, No [facility] INSURANCE CORRESPONDENCE 2022-06-17 Doctor [facility] it of 05:01:00 Unassigned, No [facility] POWER OF SPANISH MOSS PICKER 2022-06-01 Doctor [place] of 05:01:00 Unassigned, No [facility] POWER OF SPANISH MOSS PICKER 2022-05-13 Doctor [place] of 05:01:00 Unassigned, No [facility] DME/SUPPLY JUSTIFICATION 2022-05-06 Doctor [facility] ity of 05:01:00 Unassigned, No [facility] EMG/NCV 2022-04-08 Brunilda [facility] of 14:43:00 [facility] CONSENT/REFUSAL FOR DIAGNOSIS AND 2022-03-27 Doctor [facility] 12:40:53 Unassigned, No [facility] PHYSICIAN ORDERS 2022-03-19 [facility] 05:01:00 Unassigned, No [facility] COLONOSCOPY (ENDO) 2022-03-02 Tray Jolly [place] of 14:43:32 [facility] COLONOSCOPY (ENDO) 2022-03-02 Rik [facility] of 14:43:32 [facility] 2022-03-02 Jerry MárquezChan [facility] of 14:02:00 [facility] ESOPHAGOGASTRODUODENOSCOPY 2022-03-02 MárquezCecile calles [facility] ersity of 14:02:00 [facility] EGD (ENDO) 2022-03-02 Tray Jolly [place] of 13:53:24 [facility] (ENDO) 2022-03-02 Tray Jolly [place] of 13:53:24 Edward [facility] POCT GLUCOSE(AGE >30DAYS) 2022-03-02 [facility] ersity of 12:59:00 [facility] POCT GLUCOSE(AGE >30DAYS) 2022-03-02 [facility] ersity of 12:59:00 [facility] POCT GLUCOSE (AUTOMATED) 2022-03-02 [facility] 12:58:00 [facility] POCT GLUCOSE (AUTOMATED) 2022-03-02 [facility] of 12:58:00 [facility] POCT TEST 2022-03-02 [facility] of 12:48:00 [facility] POCT TEST 2022-03-02 [facility] of 12:48:00 [facility] DAY SURGERY - ADC 2022-03-02 [facility] of 05:01:00 Unassigned, No [facility] DME/SUPPLY JUSTIFICATION 2022-01-04 Doctor [facility] ity of 05:01:00 Unassigned, No [facility] DME/SUPPLY JUSTIFICATION 2022-01-04 Doctor [facility] ity of 05:01:00 Unassigned, No [facility] Name Branch DISCLOSURE AND CONSENT, MEDICAL 2021-12-28 [facility] of AND SURGICAL PROCEDURES 05:01:00 Unassigned, No [facility] dical Name Branch DISCLOSURE AND CONSENT, [facility] 2021-12-28 [facility] of AND SURGICAL PROCEDURES 05:01:00 Unassigned, No [facility] dical Name Branch Encounters Start End Encounter Admission Attending Care Care Encounter Source Date/Time Date/Time Type Type Clinicians Facility Department ID 2022-02-16 Outpatient Brock MÁRQUEZ [facility] MARCUS [id number] Univers 10:29:45 CECILE flores [facility] 2021-12-01 Outpatient Brock MÁRQUEZ [facility] [id number] Univers 13:05:09 CECILE flores [facility] 2021-11-04 Outpatient Brock MÁRQUEZ [facility] [id number] Univers 15:43:22 CECILE flores [facility] 2021-07-27 Emergency [facility] [id number] Univers 19:11:28 mark [facility] 2021-07-27 Emergency [facility] [id number] Univers 10:12:30 ity of [facility] 2021-07-27 Emergency [facility] [id number] Univers 06:35:13 ity of [facility] 2021-07-27 Emergency [facility] [id number] Univers 04:01:19 ity of [facility] 2021-07-26 Emergency [facility] [id number] Univers 12:06:22 ity of [facility] 2021-07-26 Emergency [facility] [id number] Univers 11:43:46 ity [facility] 2023-02-22 2023-02-22 Outpatient R RIK [facility] [id number] Univers 09:15:00 09:15:00 TRAY [facility] 2022-11-01 2022-11-01 Outpatient R RIK [facility] [id number] Univers 14:30:00 14:30:00 TRAY [facility] 2022-10-18 2022-10-18 Outpatient R ALVINA [facility] [id number] Univers 11:00:00 11:00:00 MARIBEL phillipsjay o f [facility] 2022-10-15 2022-10-15 [facility] [id number] Univers 10:45:00 10:45:00 LAYNE [facility] 2022-10-12 2022-10-12 [facility] 1.2.840.114 [id number] Univers 00:00:00 00:00:00 [facility] 350.1.13.10 it y of [place] 4.2.7.2.686 Emanuel as JOLLY?BLEA [id number] [address] MEDICAL OFFICE BUILDING 2022-10-07 2022-10-07 Emergency X [facility] E[facility] [id number] Univers 11:11:00 13:18:00 DESTINY [facility] 2022-10-07 2022-10-07 Emergency [facility] 1.2.511.314 [id number] Univers 11:11:00 13:18:00 Destiny GREGORIO 350.1.13.10 i ty of [place] 4.2.7.2.686 [place] [facility] [id number] [address] 2022-10-07 2022-10-07 Office [facility] 1.2.840.114 [id number] Univers 09:45:00 10:00:00 Visit Osmar [facility] 350.1.13.10 it y of [place] 4.2.7.2.686 Emanuel as JOLLY?BLEA [id number] [address] MEDICAL OFFICE [facility] 2022-10-07 2022-10-07 Outpatient R KLEBER [facility] [id number] Univers 09:45:00 08:37:42 OSMAR flores [facility] 2022-10-04 2022-10-04 [facility] 1.2.840.114 [id number] Univers 00:00:00 00:00:00 [facility] 350.1.13.10 it y of [place] [facility] 4.2.7.2.686 Emanuel as JOLLY?BLEA [id number] [address] OFFICE [facility] 2022-09-28 2022-09-28 Outpatient R RIK [facility] [id number] Univers 08:00:00 08:00:00 TRAY mark [facility] 2022-09-10 2022-09-10 [facility] 1.2.840.114 [id number] Univers 00:00:00 00:00:00 [facility] 350.1.13.10 it y of [place] 4.2.7.2.686 Emanuel as JOLLY?BLEA [id number] [address] OFFICE [facility] 2022-09-08 2022-09-08 Eduarda [facility] 1.2.840.114 [id number] Univers 00:00:00 00:00:00 [facility] 350.1.13.10 it y of [place] 4.2.7.2.686 Emanuel as JOLLY?BLEA [id number] [address] OFFICE [facility] 2022-09-08 2022-09-08 Nurse Delilah OLGUIN 1.2.840.114 [id number] Univers 00:00:00 00:00:00 Triage d, Melony Truong G[place] 350.1.13.10 ity of [facility] 4.2.7.2.686 Emanuel as [id number] [address] 2022-09-06 2022-09-06 [facility] 1.2.840.114 [id number] Univers 00:00:00 00:00:00 Wondiful [facility] 350.1.13.10 ity of [place] 4.2.7.2.686 Emanuel as JOLLY?BLEA [id number] [address] OFFICE [facility] 2022-09-06 2022-09-06 Reffranchesca [facility] 1.2.801.867 [id number] Univers 00:00:00 00:00:00 Cecilemichelle [facility] 350.1.13.10 i ty of [place] 4.2.7.2.686 [place] [id number] [address] 2022-09-03 2022-09-03 Outpatient R MISTY [facility] [id number] Univers 11:30:00 11:48:06 BERRY alanjay [facility] 2022-09-03 2022-09-03 [facility] 1.2.840.114 [id number] Univers 11:30:00 11:48:06 Visit Berry [facility] 350.1.13.10 it y of [place] 4.2.7.2.686 Emanuel as JOLLY?BLEA [id number] [address] OFFICE [facility] 2022-08-24 2022-08-24 Outpatient R RIK [facility] [id number] Univers 09:00:00 09:00:00 TRAY flores [facility] 2022-08-24 2022-08-24 Office Rik [facility] 1.2.840.114 [id number] Univers 09:00:00 09:00:00 Visit Tray [facility] 350.1.13.10 it y of [place] [facility] 4.2.7.2.686 Emanuel as JOLLY?BLEA [id number] [address] MEDICAL OFFICE [facility] 2022-08-24 2022-08-24 Outpatient R RIK [facility] [id number] Univers 09:00:00 08:53:13 TRAY flores [facility] 2022-08-24 2022-08-24 [facility] 1.2.840.114 [id number] Univers 00:00:00 00:00:00 Wondiful [facility] 350.1.13.10 ity of [facility] 4.2.7.2.686 Emanuel as JOLLY?BLEA [id number] [address] OFFICE [facility] 2022-08-22 2022-08-22 [facility] 1.2.840.114 [id number] Univers 00:00:00 00:00:00 Wondiful [facility] HE[facility] 350.1.13.10 ity of [facility] 4.2.7.2.686 Emanuel as JOLLY?BLEA [id number] [address] 2022-08-13 2022-08-13 Outpatient R MARY JANE [facility] [id number] Univers 14:00:00 14:00:00 MATEO mark [facility] 2022-08-06 2022-08-06 Telephone [facility] 1.2.840.114 [id number] Univers 00:00:00 00:00:00 Tray HEALTH 350.1.13.10 it y of [place] 4.2.7.2.686 Emanuel as JOLLY?BLEA [id number] [address] MEDICAL OFFICE [facility] 2022-08-05 2022-08-05 Orders Doctor CLAU 1.2.840.114 [id number] Univers 00:00:00 00:00:00 Only Unassigned, GRAYSON 350.1.13.10 ity of [place] [facility] 4.2.7.2.686 Emanuel as [id number] [address] 2022-07-29 2022-07-29 [facility] 1.2.840.114 [id number] Univers 00:00:00 00:00:00 Tray HEALTH 350.1.13.10 it y of [place] 4.2.7.2.686 Emanuel as JOLLY?BLEA [id number] [address] MEDICAL OFFICE [facility] 2022-07-27 2022-07-27 Outpatient R JESICABRADFORD [facility] [id number] Univers 08:00:00 08:25:43 TRAY phillipsy of [facility] 2022-07-27 2022-07-27 [facility] 1.2.840.114 [id number] Univers 08:00:00 08:25:43 Visit [facility] 350.1.13.10 it y of [place] 4.2.7.2.686 Emanuel as JOLLY?BLEA [id number] [address] OFFICE [facility] 2022-07-19 2022-07-19 Orders Doctor CLAU 1.2.840.114 [id number] Univers 00:00:00 00:00:00 Only Unassigned, GRAYSON 350.1.13.10 ity of [facility] 4.2.7.2.686 Emanuel as [id number] [address] 2022-07-08 2022-07-08 [facility] 1.2.840.114 [id number] Univers 00:00:00 00:00:00 Tray [facility] 350.1.13.10 i ty of [place] 4.2.7.2.686 [place] [id number] [place] [address] 2022-07-07 2022-07-07 Outpatient R STELLA WORLEY [facility] [id number] Univers 00:00:00 00:00:00 STELLA WORLEY y of [facility] 2022-07-01 2022-07-01 Orders Doctor CLAU 1.2.840.114 [id number] Univers 00:00:00 00:00:00 Only Unassigned, GRAYSON 350.1.13.10 ity of [facility] 4.2.7.2.686 Emanuel as [id number] [address] 2022-06-30 2022-06-30 Outpatient R STELLA WORLEY [facility] [id number] Univers 09:34:33 23:59:00 STELLA WORLEY y of [facility] 2022-06-30 2022-06-30 Hospital Stella Worley 1.2.840.114 [id number] Univers 09:34:33 23:59:00 Encounter [place] 350.1.13.10 ity of [place] 4.2.7.2.686 [place] [facility] [id number] [address] 2022-06-30 2022-06-30 Hospital Stella Worley AZFRANDY 1.2.840.114 [id number] Univers 09:34:16 23:59:00 Encounter [place] 350.1.13.10 ity of [place] 4.2.7.2.686 [place] [id number] [address] 2022-06-30 2022-06-30 Orders Doctor CLAU 1.2.840.114 [id number] Univers 00:00:00 00:00:00 Only Unassigned, GRAYSON 350.1.13.10 ity of [place] [facility] 4.2.7.2.686 Emanuel [id number] [address] 2022-06-30 2022-06-30 Telephone Stella Worley [facility] 1.2.840.114 [id number] Univers 00:00:00 00:00:00 HEALTH 350.1.13.10 it y of [place] 4.2.7.2.686 [place] [id number] [address] OFFICE BUILDING 2022-06-24 2022-06-24 Outpatient R BRUNILDA STELLA [facility] [id number] Univers 00:00:00 00:00:00 STELLA WORLEY it y of [facility] 2022-06-24 2022-06-24 Telephone Stella Worley [facility] 1.2.840.114 [id number] Univers 00:00:00 00:00:00 HEALTH 350.1.13.10 it y of [place] 4.2.7.2.686 [place] [id number] [address] OFFICE BUILDING 2022-06-21 2022-06-21 Outpatient R RIK [facility] [id number] Univers 11:00:00 11:00:00 TRAY itjay of [facility] 2022-06-21 2022-06-21 Telephone [facility] 1.2.840.114 [id number] Univers 00:00:00 00:00:00 Tray HEALTH 350.1.13.10 it y of [place] 4.2.7.2.686 Emanuel as JOLLY?BLEA [id number] [address] MEDICAL OFFICE BUILDING 2022-06-17 2022-06-17 Office Stella Worley [facility] 1.2.840.114 [id number] Univers 11:00:00 11:30:00 Visit HEALTH 350.1.13.10 it y of [place] 4.2.7.2.686 [place] JOHN [id number] [address] OFFICE BUILDING 2022-06-17 2022-06-17 Outpatient R STELLA WORLEY [facility] [id number] Univers 11:00:00 11:00:00 STELLA WORLEY it y of [facility] 2022-06-17 2022-06-17 Refill Stella Worley [facility] 1.2.840.114 [id number] Univers 00:00:00 00:00:00 HEALTH 350.1.13.10 it y of [place] 4.2.7.2.686 [place] JOHN [id number] [address] OFFICE BUILDING 2022-06-17 2022-06-17 Orders Doctor CLAU 1.2.840.114 [id number] Univers 00:00:00 00:00:00 Only Unassigned, GRAYSON 350.1.13.10 ity of [place] [facility] 4.2.7.2.686 Emanuel as [id number] [address] 2022-06-16 2022-06-16 Telephone [facility] 1.2.840.114 [id number] Univers 00:00:00 00:00:00 Tray HEALTH 350.1.13.10 it y of [place] 4.2.7.2.686 Emanuel as JOLLY?BLEA [id number] [address] MEDICAL OFFICE BUILDING 2022-06-15 2022-06-15 Outpatient R RIK [facility] [id number] Univers 08:00:00 08:25:29 TRAY ity [facility] 2022-06-15 2022-06-15 Office [facility] 1.2.840.114 [id number] Univers 08:00:00 08:25:29 Visit [facility] 350.1.13.10 it y of [place] 4.2.7.2.686 Emanuel as JOLLY?BLEA [id number] [facility] JACOBS[address] OFFICE BUILDING 2022-06-14 2022-06-14 Telephone [facility] 1.2.840.114 [id number] Univers 00:00:00 00:00:00 Cecilemichelle GREG[place]IO 350.1.13.10 i ty of [place] 4.2.7.2.686 [place] [id number] [place] [address] 2022-06-11 2022-06-11 Telephone [facility] 1.2.840.114 [id number] Univers 00:00:00 00:00:00 [facility] 350.1.13.10 it y of [place] 4.2.7.2.686 Emanuel as JOLLY?BLEA [id number] [place] samir[address] OFFICE [facility] 2022-06-09 2022-06-09 Telephone [facility] 1.2.840.114 [id number] Univers 00:00:00 00:00:00 Tray HEALTH 350.1.13.10 it y of [place] 4.2.7.2.686 Emanuel as JOLLY?BLEA [id number] [place] samirwv ARLENE[address] OFFICE BUILDING 2022-06-04 2022-06-04 Stella Barrow [facility] 1.2.840.114 [id number] Univers 00:00:00 00:00:00 HEALTH 350.1.13.10 it y of [place] 4.2.7.2.686 [place] JOHN [id number] [address] OFFICE BUILDING 2022-06-04 2022-06-04 Telephone Ry Edge [facility] 1.2.840.114 [id number] Univers 00:00:00 00:00:00 HEALTH 350.1.13.10 it y of [place] 4.2.7.2.686 Emanuel as JOLLY?BLEA [id number] [place] CHAIREZ [address] [facility] OFFICE [facility] 2022-06-04 2022-06-04 Reffranchesca [facility] 1.2.123.517 [id number] Univers 00:00:00 00:00:00 Cecile BYERSCHRISTELLE 350.1.13.10 i ty of [place] 4.2.7.2.686 [place] [phone] [place] BARNEY [address] [employer] 2022-06-03 2022-06-03 Outpatient R STELLA WORLEY [facility] [id number] Univers 09:30:00 09:30:00 STELLA WORLEY it y of [facility] 2022-06-02 2022-06-02 Stella Barrow [facility] 1.2.840.114 [id number] Univers 00:00:00 00:00:00 HEALTH 350.1.13.10 it y of [place] 4.2.7.2.686 [place] [id number] [address] OFFICE [facility] 2022-06-02 2022-06-02 Reffranchesca WorleyStella [facility] 1.2.840.114 [id number] Univers 00:00:00 00:00:00 HEALTH 350.1.13.10 it y of [place] 4.2.7.2.686 [place] [id number] [address] OFFICE [facility] 2022-06-02 2022-06-02 [facility] 1.2.840.114 [id number] Univers 00:00:00 00:00:00 Cecile JG 350.1.13.10 i ty of [place] 4.2.7.2.686 [place] [id number] [place] [address] 2022-06-01 2022-06-01 Susan WorleyStella [facility] 1.2.840.114 [id number] Univers 00:00:00 00:00:00 HEALTH 350.1.13.10 it y of [place] 4.2.7.2.686 [place] [id number] [address] OFFICE BUILDING 2022-06-01 2022-06-01 Reffranchesca Márquez [facility] 1.2.809.697 [id number] Univers 00:00:00 00:00:00 Cecile JG 350.1.13.10 i ty of [place] 4.2.7.2.686 [place] [id number] [place] g[place] [facility] [address] [employer] 2022-06-01 2022-06-01 Orders Doctor CLAU 1.2.840.114 [id number] Univers 00:00:00 00:00:00 Only Unassigned, GRAYSON 350.1.13.10 ity of [facility] 4.2.7.2.686 Emanuel as [id number] [address] 2022-05-28 2022-05-28 Reffranchesca [facility] 1.2.840.114 [id number] Univers 00:00:00 00:00:00 [facility] 350.1.13.10 it y of [place] 4.2.7.2.686 Emanuel as JOLLY?BLEA [id number] [place] ARLENEEY [address] [facility] OFFICE [facility] 2022-05-26 2022-05-26 RefStella Hamilton [facility] 1.2.840.114 [id number] Univers 00:00:00 00:00:00 HEALTH 350.1.13.10 it y of [place] 4[place]2.[place].2.686 [place] [id number] [facility] [address] [place] OFFICE [facility] 2022-05-18 2022-05-18 Outpatient R SANJAY SÁNCHEZ [facility] [id number] Univers 09:00:00 09:00:00 ity of [facility] 2022-05-17 2022-05-17 Outpatient Brock JOLLY [facility] [id number] Univers 09:00:00 09:00:00 TRAY ity of [facility] 2022-05-13 2022-05-13 Orders Doctor CLAU 1.2.840.114 [id number] Univers 00:00:00 00:00:00 Only Unassigned, GRAYSON 350.1.13.10 ity of [place] [facility] 4.2.7.2.686 Emanuel as [id number] [address] 2022-05-13 2022-05-13 Telephone Veselbradford [facility] 1.2.840.114 [id number] Univers 00:00:00 00:00:00 [facility] 350.1.13.10 it y of [place] 4.2.7.2.686 Emanuel as JOLLY?BLEA [id number] [place] dical KNEY [address] [place] MEDICAL OFFICE BUILDING 2022-05-10 2022-05-10 Outpatient R RIK [facility] [id number] Univers 16:15:00 16:15:00 TRAY ity of [facility] 2022-05-10 2022-05-10 Outpatient R BRUNILDA STELLA [facility] [id number] Univers 00:00:00 00:00:00 BRUNILDA STELLA it y of [facility] 2022-05-06 2022-05-06 Telephone Stella Worley [facility] 1.2.840.114 [id number] Univers 00:00:00 00:00:00 HEALTH 350.1.13.10 it y of [place]2.7.2.686 [place] [id number] [facility] [address] [place] OFFICE BUILDING 2022-05-06 2022-05-06 Orders Doctor CLAU 1.2.840.114 [id number] Univers 00:00:00 00:00:00 Only Unassigned, GRAYSON 350.1.13.10 ity of [place] [facility] 4.2.7.2.686 Emanuel as [id number] [facility] [address] 2022-04-29 2022-04-29 Outpatient Brock AGUILAR [facility] [id number] Univers 14:00:00 14:00:00 CLAU ity [facility] 2022-04-14 2022-04-14 Outpatient R VIK OLIVEIRA [facility] [id number] Univers 09:00:00 09:00:00 ity of [facility] 2022-04-12 2022-04-12 Susan Pollard [facility] 1.2.840.114 [id number] Univers 00:00:00 00:00:00 Ricardo GREGORIO 350.1.13.10 [place] [id number] [place] [address] [employer] 2022-04-09 2022-04-09 Outpatient R MOMO [facility] [id number] Univers 11:00:00 11:00:00 ISAC itjay of [facility] 2022-04-08 2022-04-08 Hospital [facility] 1.2.840.114 [id number] Univers 08:30:00 23:59:00 Encounter Nitoct HEALTH 350.1.13.10 [place] [id number] [facility] [address] OFFICE BUILDING 2022-04-08 2022-04-08 [facility] [id number] Univers 08:30:00 23:59:00 NITINBEV ity o f [facility] 2022-04-08 2022-04-08 Telephone Stella Worley [facility] 1.2.840.114 [id number] Univers 00:00:00 00:00:00 HEALTH 350.1.13.10 [place] [id number] [address] OFFICE [facility] 2022-04-02 2022-04-02 Outpatient R MARY JANE [facility] [id number] Univers 09:30:00 09:30:00 MATEO flores [facility] 2022-03-31 2022-03-31 Telephone Kik[place]uma [facility] 1.2.840.114 [id number] Univers 00:00:00 00:00:00 [facility] 350.1.13.10 it y of [place] 4.2.7.2.686 Emanuel as JOLLY?BLEA [phone] [place] dical CONTRERAS 044 [facility] OFFICE BUILDING 2022-03-27 2022-03-27 Emergency [facility] 1.2.205.628 [id number] Univers 07:48:00 08:22:00 Destiny GREGORIO 350.1.13.10 i ty of [place].7.2.[place] [id number] [address] 2022-03-27 2022-03-27 Emergency X [facility] ERT [id number] Univers 07:48:00 08:22:00 DESTINY ity of [facility] 2022-03-27 2022-03-27 Orders Doctor CLAU 1.2.840.114 [id number] Univers 00:00:00 00:00:00 Only Unassigned, GRAYSON 350.1.13.10 ity of [facility] 4.2.7.2.686 Emanuel as [id number] [address] 2022-03-24 2022-03-24 Telephone [facility] 1.2.840.114 [id number] Univers 00:00:00 00:00:00 Tray HEALTH 350.1.13.10 it y of [place] 4.2.7.2.686 Emanuel as JOLLY?BLEA [id number] [address] OFFICE [facility] 2022-03-19 2022-03-19 Orders Doctor CLAU 1.2.840.114 [id number] Univers 00:00:00 00:00:00 Only Unassigned, GRAYSON 350.1.13.10 ity of [facility] 4.2.7.2.686 Emanuel as [phone] [address] 2022-03-19 2022-03-19 Telephone [facility] 1.2.840.114 [id number] [id number] Univers 00:00:00 00:00:00 Tray HEALTH 350.1.13.10 it y of [place] 4.2.7.2.686 Emanuel as JOLLY?BLEA [id number] [address] OFFICE [facility] 2022-03-17 2022-03-17 Telephone [facility] 1.2.840.114 [id number] [id number] Univers 00:00:00 00:00:00 Tray HEALTH 350.1.13.10 it y of [place] 4.2.7.2.686 Emanuel as JOLLY?BLEA [phone] [address] OFFICE [facility] 2022-03-12 2022-03-12 Stella Barrow [facility] 1.2.840.114 [id number] Univers 00:00:00 00:00:00 HEALTH 350.1.13.10 it y of [place].2.[place] [phone] [facility] [address] OFFICE BUILDING 2022-03-08 2022-03-08 Telephone [facility] 1.2.840.114 [id number] [id number] Univers 00:00:00 00:00:00 [facility] 350.1.13.10 it y of [place] [facility] 4.2.7.2.686 Emanuel as JOLLY?BLEA [phone] [place] gabi CHAIREZ [address] [place] MEDICAL OFFICE BUILDING 2022-03-02 2022-03-02 Outpatient R [facility] MARCUS [id number] Univers 07:39:00 11:22:00 CECILE ity of [facility] 2022-03-02 2022-03-02 [facility] 1.2.840.114 [id number] Univers 07:39:00 11:22:00 Encounter Cecile JG 350.1.13.10 ity of [place] 4.2.7.2.[place] [address] [id number] [facility] [address] 2022-03-02 2022-03-02 Surgery [facility] 1.2.219.948 [id number] Univers 09:11:00 10:25:00 Cecile GREGORIO 350.1.13.10 i ty of [place] 4.2.7.2.[place] [phone] [facility] [address] 2022-03-02 2022-03-02 Orders Doctor OLGUIN 1.2.840.114 [id number] Univers 00:00:00 00:00:00 Only Unassigned, GRAYSON 350.1.13.10 ity of [place] [facility] 4.2.7.2.686 Emanuel as [phone] [facility] [address] 2022-03-01 2022-03-01 Telephone [facility] 1.2.840.114 [id number] Univers 00:00:00 00:00:00 Cecile JG 350.1.13.10 i ty of [facility] 4.2.7.2.686 [place] [phone] [place] gabi BARNEY [address] BUILDING 2022-03-01 2022-03-01 Reff[facility]anchesca [facility] 1.2.840.114 [id number] Univers 00:00:00 00:00:00 Sendlarissa BYERSTON 350.1.13.10 ity of [place] 4.2.7.2.686 [place] STE[place] [id number] [place] gabi [facility] [address] [employer] 2022-02-25 2022-02-25 [facility] [id number] Univers 11:00:00 11:00:00 TRAY ity of [facility] 2022-02-25 2022-02-25 Telephone Brunilda Stella [facility] 1.2.840.114 [id number] Univers 00:00:00 00:00:00 HEALTH 350.1.13.10 it y of [place].2.7.2.686 [place] [id number] [place] [address] OFFICE [facility] 2022-02-24 2022-02-24 Telephone [facility] 1.2.840.114 [id number] Univers 00:00:00 00:00:00 Tray HEALTH 350.1.13.10 it y of [place] 4.2.7.2.686 Emanuel as JOLLY?BLEA [phone] [place] dicroshan [address] OFFICE [facility] 2022-02-23 2022-02-23 Telephone [facility] 1.2.840.114 [id number] [id number] Univers 00:00:00 00:00:00 Tray HEALTH 350.1.13.10 it y of [place] 4.2.7.2.686 Emanuel as JOLLY?BLEA [phone] [place] dicroshan [address] OFFICE [facility] 2022-02-22 2022-02-22 Refill [facility] 1.2.840.114 [id number] Univers 00:00:00 00:00:00 Wondiful A HEALTH 350.1.13.10 ity of [place] 4.2.7.2.686 Emanuel as JOLLY?BLEA [phone] [place] dic[address] OFFICE [facility] 2022-02-18 2022-02-18 Patient [facility] 1.2.840.114 [id number] Univers 00:00:00 00:00:00 Secure Msg Tray [facility] 350.1.13.10 ity of [place] 4.2.7.2.686 Emanuel as JOLLY?BLEA [phone] W[place] gabi CHAIREZ [address] [place] [address] OFFICE [facility] 2022-02-18 2022-02-18 Telephone Rik [facility] 1.2.840.114 [id number] Univers 00:00:00 00:00:00 Tray GREGORIO 350.1.13.10 i ty of [place] 4.2.7.2.[place] [phone] [place] g[place] BARNEY [address] [place] [address] 2022-02-16 2022-02-16 Outpatient R RIK [facility] [id number] Univers 09:15:00 09:30:10 TRAY y [facility] 2022-02-16 2022-02-16 [facility] 1..840.114 [id number] [id number] Univers 09:15:00 09:30:10 Visit [facility] 350.1.13.10 it y of [place] 4.2.7.2.686 Emanuel as JOLLY?BLEA [phone] [facility] A[address] OFFICE [facility] 2022-02-16 2022-02-16 Outpatient R RIK [facility] [id number] Univers 09:15:00 09:15:00 TRAY y [facility] 2022-02-16 2022-02-16 Telephone Vik Oliveira [facility] ..840.114 [id number] Univers 00:00:00 00:00:00 [facility] 350.1.13.10 it y of [place] 4.2.7.2.686 [place] [phone] [address] OFFICE BUILDING 2022-02-15 2022-02-15 Outpatient R FLORENCE [facility] [id number] Univers 15:15:00 15:15:00 CAPRICE flores [facility] 2022-02-14 2022-02-14 Nurse CLAU Zarate 1.2.359.766 [id number] Univers 00:00:00 00:00:00 Triage Young GRAYSON 350.1.13.10 it y of HOSPITAL 4.2.7.2.686 Emanuel as [phone] [facility] [address] [place] 2022-02-12 2022-02-12 Telephone Rik AZFRANDY 1.2.840.114 [id number] Univers 00:00:00 00:00:00 Tray HEALTH 350.1.13.10 it y of [place] 4.2.7.2.686 Emanuel as JOLLY?BLEA [phone] [place] CHAIREZ [address] [place] [address] MEDICAL OFFICE BUILDING 2022-02-11 2022-02-11 Telephone Stella Worley [facility] 1.2.840.114 [id number] Univers 00:00:00 00:00:00 HEALTH 350.1.13.10 it y of [place]2.7.2.686 [place] [id number] [address] OFFICE [facility] 2022-02-11 2022-02-11 Telephone Vik Oliveira [facility] 1.2.840.114 [id number] Univers 00:00:00 00:00:00 HEALTH 350.1.13.10 it y of [place]2.7.2.[place] [id number] [address] OFFICE [facility] 2022-02-10 2022-02-10 Outpatient NAV GIANG [facility] [id number] Univers 00:00:00 00:00:00 ity of [facility] 2022-02-10 2022-02-10 Outpatient NAV GIANG [facility] [id number] Univers 00:00:00 00:00:00 ity of [facility] 2022-02-10 2022-02-10 Orders Doctor CLAU 1.2.840.114 [id number] Univers 00:00:00 00:00:00 Only Unassigned, GRAYSON 350.1.13.10 ity of [facility] 4.2.7.2.686 Emanuel as [phone] [address] 2022-02-08 2022-02-08 Outpatient R STELLA WORLEY [facility] [id number] Univers 10:00:00 11:34:48 STELLA WORLEY it y of [facility] 2022-02-08 2022-02-08 Office Stella Worley [facility] 1.2.840.114 [id number] Univers 10:00:00 11:34:48 Visit HEALTH 350.1.13.10 it y of [place]2.7.2.686 [place] [id number] [address] OFFICE [facility] 2022-02-01 2022-02-01 Telephone Momo [facility] 1.2.063.447 [id number] [id number] Univers 00:00:00 00:00:00 Isac S HEALTH 350.1.13.10 it y of [place] 4.2.7.2.686 Emanuel as JOLLY?BLEA [id number] [place] JACOBS [address] [place] MEDICAL OFFICE [facility] 2022-01-28 2022-01-28 Orders Doctor CLAU 1.2.840.114 [id number] Univers 00:00:00 00:00:00 Only Unassigned, GRAYSON 350.1.13.10 ity of [place] [facility] 4.2.7.2.686 Emanuel as [phone] [address] 2022-01-27 2022-01-27 Telephone [facility] 1.2.840.114 [id number] Univers 00:00:00 00:00:00 Tray HEALTH 350.1.13.10 it y of [place] 4.2.7.2.686 Emanuel as JOLLY?BLEA [phone] [place] CHAIREZ [address] [place] MEDICAL OFFICE [facility] 2022-01-27 2022-01-27 Telephone Rik [facility] 1.2.840.114 [id number] [id number] Univers 00:00:00 00:00:00 Tray HEALTH 350.1.13.10 it y of [place] 4.2.7.2.686 Emanuel as JOLLY?BLEA [phone] [place] JACOBS [address] [place] MEDICAL OFFICE BUILDING 2022-01-27 2022-01-27 Telephone Vik Oliveira [facility] 1.2.840.114 [id number] Univers 00:00:00 00:00:00 HEALTH 350.1.13.10 it y of [place].2.[place] [id number] [address] OFFICE BUILDING 2022-01-25 2022-01-25 Outpatient [facility] [id number] Univers 10:20:49 23:59:00 MATEO flores [facility] 2022-01-25 2022-01-25 [facility] 1.2.840.114 [id number] Univers 10:00:00 23:59:00 Encounter Mateo Dulce Maria JG 350.1.13.10 ity of [facility] 4.2.7.2.686 [place] [facility] [phone] [facility] [address] [place] 2022-01-25 2022-01-25 Outpatient R [facility] [id number] Univers 00:00:00 00:00:00 MATEO flores [facility] 2022-01-25 2022-01-25 Orders Doctor CLAU 1.2.840.114 [id number] Univers 00:00:00 00:00:00 Only Unassigned, GRAYSON 350.1.13.10 ity of [facility] 4.2.7.2.686 Emanuel as [phone] [address] 2022-01-22 2022-01-22 [place] [facility] 1.2.840.114 [id number] Univers 00:00:00 00:00:00 Tray HEALTH 350.1.13.10 it y of [place] [facility] 4.2.7.2.686 Emanuel as JOLLY?BLEA [id number] [address] OFFICE [facility] 2022-01-22 2022-01-22 Orders Doctor CLAU 1.2.840.114 [id number] Univers 00:00:00 00:00:00 Only Unassigned, GRAYSON 350.1.13.10 ity of [facility] 4.2.7.2.686 Emanuel as [id number] [address] 2022-01-21 2022-01-21 [facility] 1.2.840.114 [id number] Univers 00:00:00 00:00:00 Wondiful A HEALTH 350.1.13.10 ity of [facility] 4.2.7.2.686 Emanuel as JOLLY?BLEA [phone] [place] gabi [address] 2022-01-20 2022-01-20 [facility] 1.2.840.114 [id number] Univers 00:00:00 00:00:00 Wondiful A HEALTH 350.1.13.10 ity of [place] 4.2.7.2.686 Emanuel as JOLLY?BLEA [phone] [facility] [address] 2022-01-19 2022-01-19 Telephone [facility] 1.2.840.114 [id number] Univers 00:00:00 00:00:00 Tray HEALTH 350.1.13.10 it y of [place] 4.2.7.2.686 Emanuel as JOLLY?BLEA [phone] [facility] [address] 2022-01-18 2022-01-18 Refill [facility] 1.2.840.114 [id number] Univers 00:00:00 00:00:00 Tray HEALTH 350.1.13.10 it y of [place] [facility] 4.2.7.2.686 Emanuel as JOLLY?BLEA [phone] [facility] [address] 2022-01-13 2022-01-13 Telephone [facility] 1.2.840.114 [id number] Univers 00:00:00 00:00:00 Arnoldo [facility] 350.1.13.10 i ty of [facility] 4.2.7.2.686 [place] [phone] [place] g[place] [address] 2022-01-11 2022-01-11 Outpatient Brock BARR [facility] [id number] Univers 14:45:00 23:59:00 [facility] 2022-01-11 2022-01-11 Outpatient Brock BARR [facility] [id number] Univers 14:45:00 23:59:00 [facility] 2022-01-11 2022-01-11 Office [facility] 1.2.840.114 [id number] Univers 13:45:00 14:00:00 Visit Isac S HEALTH 350.1.13.10 it y of [place] 4.2.7.2.686 Emanuel as JOLLY?BLEA [id number] [place] g[place] CHAIREZ [address] [facility] OFFICE [facility] 2022-01-11 2022-01-11 Outpatient R MOMO [facility] [id number] Univers 13:45:00 13:45:00 ISAC ity [facility] 2022-01-07 2022-01-07 Telephone [facility] 1.2.840.114 [id number] Univers 00:00:00 00:00:00 Tray HEALTH 350.1.13.10 it y of [place] 4.2.7.2.686 Emanuel as JOLLY?BLEA [id number] [place] g[place] CHAIREZ 0[address] [facility] OFFICE [facility] 2022-01-06 2022-01-06 Telephone [facility] 1.2.840.114 [id number] Univers 00:00:00 00:00:00 Wondiful A HEALTH 350.1.13.10 ity of [place] 4.2.7.2.686 Emanuel as JOLLY?BLEA [id number] [place] gabi CHAIREZ 0[address] [facility] OFFICE [facility] 2022-01-05 2022-01-05 Telephone [facility] 1.2.840.114 [id number] Univers 00:00:00 00:00:00 Tray HEALTH 350.1.13.10 it y of [place] 4.2.7.2.686 Emanuel as JOLLY?BLEA [id number] [place] g[place] CHAIREZ [address] [facility] OFFICE [facility] 2022-01-04 2022-01-04 Telephone [facility] 1.2.840.114 [id number] Univers 00:00:00 00:00:00 Tray HEALTH 350.1.13.10 it y of [place] 4.2.7.2.686 Emanuel as JOLLY?BLEA [phone] [place] CHAIREZ [address] [place] MEDICAL OFFICE [facility] 2021-12-31 2021-12-31 Telephone [facility] 1.2.840.114 [id number] Univers 00:00:00 00:00:00 Tray HEALTH 350.1.13.10 it y of [place] 4.2.7.2.686 Emanuel as JOLLY?BLEA [phone] [place] g[place] CHAIREZ [address] [facility] OFFICE BUILDING 2021-12-31 2021-12-31 Telephone [facility] 1.2.840.114 [id number] [id number] Univers 00:00:00 00:00:00 [facility] 350.1.13.10 it y of [place] 4.2.7.2.686 Emanuel as JOLLY?BLEA [id number] [place] g[place] CHAIREZ [address] [facility] OFFICE [facility] 2021-12-30 2021-12-30 Patient [facility] 1.2.840.114 [id number] Univers 00:00:00 00:00:00 Outreach [facility] 350..13.10 ity of [place] 4.2.7.2.686 Emanuel as PROFESSIO [phone] [place] g[place] BARNEY [address] [place] [address] ONE 2021-12-28 2021-12-28 Outpatient R [facility] [id number] Univers 09:30:00 10:07:08 CECILE [facility] 2021-12-28 2021-12-28 Outpatient R [facility] [id number] Univers 09:30:00 10:07:08 [facility] 2021-12-28 2021-12-28 Office [facility] 1.2.837.109 [id number] Univers 09:30:00 10:07:08 Visit Cecile [facility] 350..13.10 i ty of [place] 4.2.7.2.686 [place] [phone] [place] g[place] BARNEY [address] [employer] 2021-12-24 2021-12-24 Outpatient R [facility] [id number] Univers 14:00:00 14:00:00 ity of [facility] 2021-12-24 2021-12-24 Patient [facility] 1.2.840.114 [id number] Univers 00:00:00 00:00:00 Secure Msg [facility] 350.1.13.10 ity of [place] 4.2.7.2.686 Emanuel as JOLLY?BLEA [phone] [place] g[place] CHAIREZ [address] [facility] OFFICE [facility] 2021-12-22 2021-12-22 Telephone [facility] 1.2.840.114 [id number] Univers 00:00:00 00:00:00 Cecile GREGORIO 350.1.13.10 i ty of [place] 4.2.7.2.686 [place] PROF[place] [phone] [place] g[place] BARNEY [address] [employer] 2021-12-16 2021-12-16 Telephone [facility] 1.2.840.114 [id number] Univers 00:00:00 00:00:00 [facility] 350.1.13.10 it y of [place] [facility] 4.2.7.2.686 Emanuel as JOLLY?BLEA [phone] [place] CHAIREZ 044 [facility] OFFICE [facility] 2021-12-11 2021-12-11 Surgery [facility] 1.2.161.628 [id number] Univers 10:33:00 11:46:00 Cecile GREGORIO 350.1.13.10 i ty of [facility] 4.2.7.2.686 [place]ICAL [id number] [address] 2021-12-11 2021-12-11 Surgery [facility] 1.2.543.076 [id number] 9758 Univers 10:33:00 11:46:00 Cecile JG 350.1.13.10 i ty of [facility] 4.2.7.2.686 [place]ICAL [id number] [address] 2021-12-11 2021-12-11 Surgery [facility] 1.2.087.706 [id number] [id number] Univers 10:33:00 11:46:00 Cecile GREGORIO 350.1.13.10 i ty of [facility] 4.2.7.2.686 [place]GICAL [id number] [address] 2021-12-11 2021-12-11 Outpatient R [facility] MARC[facility] [id number] Univers 08:40:00 11:25:00 CECILE flores [facility] 2021-12-112021-12-11 [facility] 1.2.840.114 [id number] Univers 08:40:00 11:25:00 Encounter Cecile JG 350.1.13.10 ity of [place] 4.2.7.2.686 [place] SURGICAL [id number] [address] 2021-12-11 2021-12-11 Outpatient [facility] [id number] Univers 08:40:00 11:25:00 CECILE jay [facility] 2021-12-11 2021-12-11 Outpatient [facility] [id number] Univers 08:40:00 11:25:00 [facility] 2021-12-11 2021-12-11 Orders Doctor OLGUIN 1.2.840.114 [id number] Univers 00:00:00 00:00:00 Only Unassigned, GRAYSON 350.1.13.10 ity of [place] [facility] 4.2.7.2.686 Emanuel as [phone] [address] 2021-12-09 2021-12-09 Telephone [facility] 1.2.840.114 [id number] Univers 00:00:00 00:00:00 Wondiful A HEALTH 350.1.13.10 ity of [place] 4.2.7.2.686 Emanuel as JOLLY?BLEA [phone] [place] CHAIREZ [address] [place] MEDICAL OFFICE [facility] 2021-12-08 2021-12-08 Outpatient R [facility] [id number] Univers 13:00:00 13:00:00 ity of [facility] 2021-12-08 2021-12-08 Telephone [facility] 1.2.840.114 [id number] Univers 00:00:00 00:00:00 Tray HEALTH 350.1.13.10 it y of [place] 4.2.7.2.686 Emanuel as JOLLY?BLEA [phone] [place] J[address] MEDICAL OFFICE [facility] 2021-12-08 2021-12-08 Telephone [facility] 1.2.840.114 [id number] Univers 00:00:00 00:00:00 Tray HEALTH 350.1.13.10 it y of [place] 4.2.7.2.686 Emanuel as JOLLY?BLEA [phone] [address] OFFICE [facility] 2021-12-03 2021-12-03 Outpatient R MARITZA [facility] [id number] Univers 13:30:00 13:30:00 ORPHEUS ity of [facility] 2021-12-03 2021-12-03 Telephone [facility] 1..840.114 [id number] Univers 00:00:00 00:00:00 Cecile JG 350.1.13.10 i ty of [facility] 4.2.7.2.686 [place] PROFESS[place] [phone] [facility] [address] [employer] 2021-12-03 2021-12-03 Telephone [facility] 1..840.114 [id number] [facility] 00:00:00 00:00:00 Wondiful A HEALTH 350.1.13.10 ity of [place] 4.2.7.2.686 Emanuel as PROFESSIO [id number] [address] ONE 2021-12-01 2021-12-01 [facility] [id number] Univers 14:15:00 14:54:12 WONDIFUL ity o f [facility] 2021-12-01 2021-12-01 Office [facility] 1..840.114 [id number] Univers 14:15:00 14:54:12 Visit Wondiful A HEALTH 350.1.13.10 ity of [place] 4.2.7.2.686 Emanuel as JOLLY?BLEA [phone] [address] OFFICE [facility] 2021-12-01 2021-12-01 Outpatient [facility] [id number] Univers 14:15:00 14:54:12 WONDIFUL ity o f [facility] 2021-12-01 2021-12-01 Patient [facility] 1..840.114 [id number] Univers 00:00:00 00:00:00 Outreach [place] [address].1.13.10 i ty of [place] 4.2.7.2.686 Emanuel as JOLLY?BLEA [phone] [address] MEDICAL OFFICE [facility] 2021-12-01 2021-12-01 Patient Scot [facility] 1.2.840.114 [id number] Univers 00:00:00 00:00:00 Outreach Vik [facility] 350.1.13.10 i ty of [place] [id number] Emanuel as JOLLY?BLEA [phone] [address] [facility] 2021-11-18 2021-11-18 Outpatient R NISA [facility] [id number] Univers 10:00:00 10:44:34 WONDIFUL ity o f [facility] 2021-11-18 2021-11-18 Outpatient R NISA [facility] [id number] Univers 10:00:00 10:44:34 WONDIFUL ity o f [facility] 2021-11-18 2021-11-18 Outpatient R NISA [facility] [id number] Univers 10:00:00 10:00:00 WONDIFUL ity o f [facility] 2021-11-18 2021-11-18 Outpatient R NISA [facility] [id number] Univers 10:00:00 10:00:00 WONDIFUL ity o f [facility] 2021-11-18 2021-11-18 Outpatient R NISA [facility] [id number] Univers 10:00:00 10:00:00 WONDIFUL ity o f [facility] 2021-11-16 2021-11-16 Outpatient R WILLI [facility] [id number] Univers 09:30:00 09:30:00 CECILE [facility] 2021-11-16 2021-11-16 Outpatient R WILLI [facility] [id number] Univers 09:30:00 09:30:00 CECILE [facility] 2021-11-16 2021-11-16 Outpatient R WILLI [facility] [id number] Univers 09:30:00 09:30:00 CECILE ity [facility] 2021-11-15 2021-11-15 Emergency X [facility] [id number] Univers 09:06:00 12:49:00 DESTINY flores [facility] 2021-11-15 2021-11-15 Emergency [facility] [id number] Univers 09:06:00 12:49:00 [place] [id number] i ty [place] [id number] [phone] [place] [id number] [place] 2021-11-15 2021-11-15 Emergency X [facility] ERT [id number] Univers 09:06:00 12:49:00 DESTINY flores [facility] 2021-11-10 2021-11-10 Telephone [facility] [id number] Univers 00:00:00 00:00:00 Wondiful [facility] [id number] ity of [place] [id number] Emanuel as JOLLY?BLEA [phone] [address] MED[facility] 2021-11-05 2021-11-05 Orders Doctor CLAU [id number] Univers 00:00:00 00:00:00 Only Unassigned, [place] [id number] ity of [place] [facility] [id number] Emanuel as [phone] [facility] 009 [place] 2021-11-05 2021-11-05 Telephone [place] [facility] 1.2.840.114 [id number] Univers 00:00:00 00:00:00 Wondiful A HEALTH 350.1.13.10 ity of [place] 4.2.7.2.686 Emanuel as JOLLY?BLEA [id number] [address] MEDICAL OFFICE [facility] 2021-11-03 2021-11-03 Telephone [facility] 1.2.840.114 [id number] Univers 00:00:00 00:00:00 Wondiful A HEALTH 350.1.13.10 ity of [place] 4.2.7.2.686 Emanuel as JOLLY?BLEA [id number] [place] dicroshan JACOBSEY [address] [place] MEDICAL OFFICE [facility] 2021-11-03 2021-11-03 Telephone Nisa AZFRANDY 1.2.840.114 [id number] Univers 00:00:00 00:00:00 Wondiful A HEALTH 350.1.13.10 ity [facility] 4.2.7.2.686 Emanuel as JOLLY?BLEA [phone] [place] dical KNEY [address] [place] MEDICAL OFFICE [facility] 2021-10-27 2021-10-27 Case Sanjay Sánchez 1.2.840.114 [id number] Univers 00:00:00 00:00:00 Management H 350.1.13.10 ity of [facility] 4.2.7.2.686 Emanuel as [id number] [place] [address] [place] 2021-10-26 2021-10-26 Telephone Sanjay Sánchez 1.2.840.114 [id number] Univers 00:00:00 00:00:00 H 350.1.13.10 it y of [facility] 4.2.7.2.686 Emanuel as [phone] [address] 2021-10-23 2021-10-23 Telephone Jaymie [facility] 1.2.531.438 [id number] Univers 00:00:00 00:00:00 Corry GREGORIO 350.1.13.10 ity of [place] [phone] [place] gabi BARNEY [address] [employer] 2021-10-22 2021-10-22 Outpatient Brock BARR [facility] [id number] Univers 14:45:00 14:45:00 ISAC ity [facility] 2021-10-22 2021-10-22 Outpatient Brokc BARR [facility] [id number] Univers 14:45:00 14:45:00 ISAC ity [facility] 2021-10-22 2021-10-22 Outpatient Brock BARR [facility] [id number] Univers 14:45:00 14:45:00 ISAC ity [facility] 2021-10-22 2021-10-22 Outpatient Brock BARR [facility] [id number] Univers 14:45:00 14:45:00 ISAC itjay [facility] 2021-10-19 2021-10-19 Telephone Nisa [facility] 1.2.840.114 [id number] Univers 00:00:00 00:00:00 Wondiful A HEALTH 350.1.13.10 ity of [place] 4.2.7.2.686 Emanuel as JOLLY?BLEA [phone] [place] gabi JACOBSEY 044 [facility] OFFICE [facility] 2021-10-13 2021-10-13 [facility] [id number] Univers 10:30:00 10:41:12 CORRY itjay [facility] 2021-10-13 2021-10-13 [facility] 1.2.840.114 [id number] Univers 10:30:00 10:41:12 Visit Corry BYERSTON 350.1.13.10 ity of [facility] 4.2.7.2.[place] [phone] [place] gabi BARNEY [address] [employer] 2021-10-13 2021-10-13 Outpatient R JAYMIE [facility] [id number] Univers 10:30:00 10:41:12 CORRY flores [facility] 2021-09-29 2021-09-29 Outpatient R LFORENCE [facility] [id number] Univers 16:14:01 23:59:00 CAPRICE flores [facility] 2021-09-29 2021-09-29 Outpatient R FLORENCE [facility] [id number] Univers 16:14:01 23:59:00 CAPRICE flores [facility] 2021-09-29 2021-09-29 [facility] 1.2.840.114 [id number] Univers 16:14:01 23:59:00 Encounter Caprice L HEALTH 350.1.13.10 ity of [facility] 4.2.7.2.686 Emanuel as JOLLY?BLEA [phone] [place] dicroshan CHAIREZ 809 [facility] 2021-09-29 2021-09-29 Outpatient R FLORENCE [facility] [id number] Univers 16:14:01 23:59:00 CAPRICE [facility] 2021-09-29 2021-09-29 Office [facility] 1.2.840.114 [id number] Univers 16:00:00 16:58:02 Visit Isac [facility] 350.1.13.10 it y of [place] 4.2.7.2.686 Emanuel as JOLLY?BLEA [phone] [place] samirroshan CHAIREZ 198 [facility] OFFICE [facility] 2021-09-29 2021-09-29 [facility]patient [facility] [id number] Univers 16:00:00 16:58:02 [facility] 2021-09-29 2021-09-29 Out[facility] [id number] Univers 16:00:00 16:58:02 [facility] 2021-09-29 2021-09-29 Outpatient [facility] [id number] Univers 16:00:00 16:00:00 [facility] 2021-09-24 2021-09-24 Outpatient [facility] [id number] Univers 14:00:00 14:00:00 [facility] 2021-09-19 2021-09-19 Nurse Caprice Ozuna 1.2.840.114 [id number] Univers 00:00:00 00:00:00 Triage GRAYSON 350.1.13.10 it y of [facility] 4.2.7.2.686 Emanuel as [phone] [address] 2021-09-09 2021-09-09 Prep For Jaymie [facility] 1.2.840.114 [id number] Univers 00:00:00 00:00:00 Surgery Corry Bryan GREGORIO 350.1.13.10 ity of [facility] [place].2.[place].2.[place] [phone] [place] gabi BARNEY [address] [employer] 2021-09-08 2021-09-08 Office Willi [facility] 1.2.817.214 [id number] Univers 14:30:00 16:16:36 Visit Cecile JG 350.1.13.10 i ty of [place].2.7.2.[place] [phone] [place] dical [address] 2021-09-08 2021-09-08 Outpatient R WILLI [facility] [id number] Univers 14:30:00 16:16:36 CECILE flores [facility] 2021-09-08 2021-09-08 Outpatient R WILLI [facility] [id number] Univers 14:30:00 16:16:36 CECILE flores [facility] 2021-09-08 2021-09-08 Outpatient R WILLI [facility] [id number] Univers 14:30:00 14:30:00 CECILE mark [facility] 2021-09-08 2021-09-08 Orders Doctor CLAU 1.2.840.114 [id number] Univers 00:00:00 00:00:00 Only Unassigned, GRAYSON 350.1.13.10 ity of [place] [facility] 4.2.7.2.686 Emanuel as [phone] [address] 2021-09-02 2021-09-02 [facility] [id number] Univers 14:00:00 14:00:00 CAPRICE flores [facility] 2021-08-31 2021-08-31 Orders Doctor CLAU 1.2.840.114 [id number] Univers 00:00:00 00:00:00 Only Unassigned, GRAYSON 350.1.13.10 ity of [place] [facility] 4.2.7.2.686 Emanuel as [phone] [address] 2021-08-26 2021-08-26 Outpatient R NISA [facility] [id number] Univers 10:45:00 11:58:51 WONDIFUL ity o f [facility] 2021-08-26 2021-08-26 Outpatient R NISA [facility] [id number] Univers 10:45:00 11:58:51 WONDIFUL ity o f [facility] 2021-08-26 2021-08-26 Outpatient R NISA [facility] [id number] Univers 10:45:00 11:58:51 WONDIFUL ity o f [facility] 2021-08-26 2021-08-26 [facility] [id number] Univers 10:45:00 11:58:51 WONDIFUL ity o f [facility] 2021-08-26 2021-08-26 Office [facility] 1.2.840.114 [id number] Univers 10:34:47 11:58:51 Visit Wondiful A HEALTH 350.1.13.10 ity of [place] 4.2.7.2.686 Emanuel as JOLLY?BLEA [phone] [facility] 044 [facility] OFFICE [facility] 2021-08-17 2021-08-17 Case [facility] 1.2.840.114 [id number] Univers 00:00:00 00:00:00 Management Wondiful A HEALTH 350.1.13.10 ity of [place] 4.2.7.2.686 Emanuel as JOLLY?BLEA [phone] [address] 2021-08-13 2021-08-13 [facility] [id number] Univers 07:58:20 23:59:00 WONDIFUL ity o f [facility] 2021-08-13 2021-08-13 Hospital [facility] 1.2.337.275 [id number] Univers 07:58:20 23:59:00 Encounter Wondiful A [place] 350.1.13.10 ity of [place].2.686 [place] [phone] [facility] [address] [place] [address] 2021-08-13 2021-08-13 Outpatient R NISA [facility] [id number] Univers 07:58:20 23:59:00 WONDIFUL ity o f [facility] 2021-08-13 2021-08-13 Astronautical Engineer Zachariah, [facility] 1.2.8 40.114 [id number] Univers 07:57:57 08:12:57 Visit Andrea Paula A [place] 350.1.13. 10 ity of [place].2.7.2.686 [place] [facility] [id number] [address] 2021-08-13 2021-08-13 Outpatient R NISA [facility] [id number] Univers 00:00:00 00:00:00 WONDIFUL ity o f [facility] 2021-08-04 2021-08-04 Outpatient R NISA [facility] [id number] Univers 15:30:00 15:42:52 WONDIFUL ity o f [facility] 2021-08-04 2021-08-04 Outpatient R NISA [facility] [id number] Univers 15:30:00 15:42:52 WONDIFUL ity o f [facility] 2021-08-04 2021-08-04 Outpatient R NISA [facility] [id number] Univers 15:30:00 15:42:52 WONDIFUL ity o f [facility] 2021-08-04 2021-08-04 Outpatient R NISA [facility] [id number] Univers 15:30:00 15:42:52 WONDIFUL ity o [facility] 2021-08-04 2021-08-04 Outpatient R NISA [facility] [id number] Univers 15:30:00 15:42:52 WONDIFUL ity o [facility] 2021-08-04 2021-08-04 [facility] 1.2.840.114 [id number] Univers 14:30:05 15:42:52 Visit Wondiful A HEALTH 350.1.13.[address] [facility] 4.2.7.2.686 Emanuel as JOLLY?BLEA [id number] [place] samir[address] MEDICAL OFFICE BUILDING 2021-08-04 2021-08-04 Outpatient R NISA [facility] [id number] Univers 15:30:00 15:30:00 WONDIFUL ity o [facility] 2021-08-03 2021-08-03 Pre Visit CLAU Edmondson 1.2.840.114 [id number] Univers 00:00:00 00:00:00 Outreach Jorge GALICIA 350.1.13.10 i ty [facility] 4.2.7.2.686 Emanuel as [phone] [address] 2021-07-15 2021-07-15 Outpatient R [facility] [id number] Univers 14:20:00 14:20:00 SHORTY alany o altagracia [facility] 2021-07-15 2021-07-15 Outpatient R AIMEE [facility] [id number] Univers 14:20:00 14:20:00 SHORTY ity o f [facility] 2021-07-15 2021-07-15 Outpatient R [facility] [id number] Univers 14:20:00 14:20:00 SHORTY ity o f [facility] 2021-07-15 2021-07-15 Outpatient R [facility] [id number] Univers 14:20:00 14:20:00 SHORTY phillipsy o [facility] 2021-07-14 2021-07-14 Reffranchesca [facility] 1.2.840.114 [id number] Univers 00:00:00 00:00:00 Wondiful A Health 350.1.13.10 ity of [place] 4.2.7.2.686 Emanuel as Professio [id number] [place] dical nal [address] [place] Office [facility] One 2021-07-10 2021-07-10 Outpatient Kautz_S DMG [facility] [id number] Devoted 05:13:00 05:13:00 1015 [facility] l [facility] 2021-07-02 2021-07-02 Reffranchesca [facility] 1.2.840.114 [id number] Univers 00:00:00 00:00:00 Wondiful A Health 350.1.13.10 ity of [place] 4.2.7.2.686 Emanuel as Professio [phone] [place] dical nal [address] [place] Office Building One 2021-06-15 2021-06-15 Orders Doctor CLAU 1.2.840.114 [id number] Univers 00:00:00 00:00:00 Only Unassigned, GRAYSON 350.1.13.10 ity of [place] [facility] 4.2.7.2.686 Emanuel as [id number] [address] 2021-06-08 2021-06-08 Patient [employer] 1.2.840.114 [id number] Univers 00:00:00 00:00:00 Outreach Emily Chahal Chavarria 350.1.13.10 ity of [place].2.[place] [id number] [address] 2021-06-08 2021-06-08 RefVik Hall [facility] 1.2.840.114 [id number] Univers 00:00:00 00:00:00 Health 350.1.13.10 it y of [place]2.7.2.686 [place] [id number] [address] Office Building 2021-05-25 2021-05-25 Emergency X DREVER, [facility] ERT [id number] Univers 18:22:00 20:23:00 LAUREEN ity [facility] 2021-05-25 2021-05-25 Emergency X DREVER, [facility] ERT [id number] Univers 18:22:00 20:23:00 LAUREEN ity [facility] 2021-05-25 2021-05-25 Emergency X DREVER, [facility] ERT [id number] Univers 18:22:00 20:23:00 LAUREEN ity [facility] 2021-05-25 2021-05-25 Emergency X DREVER, [facility] ERT [id number] Univers 18:22:00 20:23:00 LAUREEN ity [facility] 2021-05-25 2021-05-25 Emergency X DREVER, [facility] ERT [id number] Univers 18:22:00 20:23:00 [facility] ity [facility] 2021-05-25 2021-05-25 Emergency Drever, [facility] 1.2.337.064 [id number] Univers 18:22:00 20:23:00 Laureenopal [place] 350.1.13.10 ity of [place] 4.2.7.2.686 [place] [phone] [place] [address] [address] 2021-05-21 2021-05-21 Outpatient R LAILA ORELLANA [facility] [id number] Univers 09:30:00 09:30:00 LAILA ORELLANA i ty [facility] 2021-05-19 2021-05-19 Susan Paula [facility] 1.2.840.114 [id number] Univers 00:00:00 00:00:00 Wondiful A Health 350.1.13.10 ity of [place] 4.2.7.2.686 Emanuel as Professio [phone] [facility] [place] Office Building One 2021-05-14 2021-05-14 Outpatient R SANJAY SÁNCHEZ [facility] [id number] Univers 09:00:00 09:00:00 ity [facility] 2021-05-09 2021-05-09 [place] [id number] Devoted 11:00:00 11:00:00 0814 Medica l Group 2021-05-08 2021-05-08 [facility] [id number] Univers 07:37:21 23:59:00 [facility] 2021-05-08 2021-05-08 [facility] [id number] Univers 07:37:21 23:59:00 CAPRICE ity [facility] 2021-05-08 2021-05-08 [facility] [id number] Univers 07:37:21 23:59:00 [facility] 2021-05-08 2021-05-08 [facility] [id number] Univers 07:37:21 23:59:00 [facility] 2021-05-08 2021-05-08 [facility] [id number] Univers 08:15:00 08:15:00 ISAC ity [facility] 2021-05-07 2021-05-07 [place] DM [id number] Devoted 12:00:00 12:00:00 0812 Medica l Group 2021-04-27 2021-04-27 Reffranchesca [facility] 1.2.840.114 [id number] Univers 00:00:00 00:00:00 Rd E HEALTH 350.1.13.10 it y of [place] 4.2.7.2.686 Emanuel as PROFESSIO [phone] [facility] NAL [address] OFFICE BUILDING ONE 2021-04-21 2021-04-21 Outpatient R NISA, [facility] [id number] Univers 15:45:00 15:45:00 WONSATURNINO ity o f [facility] 2021-04-07 2021-04-07 Outpatient R OSMAR, [facility] [id number] Univers 09:20:00 09:20:00 RD jay [facility] 2021-04-02 2021-04-02 Outpatient R MOMO, [facility] [id number] Univers 08:45:00 08:45:00 ISAC [facility] 2021-04-01 2021-04-01 Emergency X NINO, [facility] ERT [id number] Univers 13:00:00 15:36:00 DESTINY [facility] 2021-04-01 2021-04-01 Emergency X NINO, [facility] ERT [id number] Univers 13:00:00 15:36:00 DESTINY [facility] 2021-04-01 2021-04-01 Emergency X NINO, [facility] ERT [id number] Univers 13:00:00 15:36:00 DESTINY [facility] 2021-04-01 2021-04-01 Outpatient R [facility] [id number] Univers 08:45:00 08:45:00 [facility] 2021-03-28 2021-03-28 Outpatient R BELLA, [facility] [id number] Univers 09:40:00 09:40:00 CHELA ity o f [facility] 2021-03-27 2021-03-27 Outpatient R MARY JANE, [facility] [id number] Univers 09:30:00 09:30:00 MATEO [facility] 2021-03-26 2021-03-26 Outpatient R MOMO, [facility] [id number] Univers 15:15:00 15:15:00 ISAC [facility] 2021-03-25 2021-03-25 Outpatient R JAYMIE, [facility] [id number] Univers 08:30:00 08:30:00 CORRY [facility] 2021-03-23 2021-03-23 Outpatient R STEFFANIE, [facility] [id number] Univers 08:00:00 08:00:00 EMERY ity o f [facility] 2021-03-20 2021-03-20 Emergency X STEPHEN, K [facility] ERT [id number] Univers 19:09:00 19:47:00 ity of [facility] 2021-03-20 2021-03-20 Emergency X STEPHEN, K [facility] ERT [id number] Univers 19:09:00 19:47:00 ity [facility] 2021-03-20 2021-03-20 Emergency X TSEPHEN, K [facility] ERT [id number] Univers 19:09:00 19:47:00 ity [facility] 2021-03-18 2021-03-18 Outpatient [facility] [id number] Univers 00:00:00 00:00:00 CAPRICE [facility] 2021-03-12 2021-03-12 [facility] [id number] Univers 08:30:00 08:30:00 [facility] 2021-03-11 2021-03-11 Outpatient [facility] [id number] Univers 16:15:00 16:15:00 [facility] 2021-03-10 2021-03-10 [facility] 1..840.114 [id number] Univers 00:00:00 00:00:00 [facility] 350.1.13.10 it y of [place] 4.2.7.2.686 [facility] [phone] [place] [address] OFFICE BUILDING 2021-02-25 2021-02-25 Outpatient [facility] [id number] Univers 14:30:00 14:30:00 [facility] 2021-02-25 2021-02-25 Eduarda [facility] 1.2.232.608 [id number] 00:00:00 00:00:00 Ricardo Roche [place] 350.1.13.10 [place] 4.2.7.2.686 Profess [id number] [facility] Building 2021-02-24 2021-02-24 Outpatient R NISA [facility] [id number] Univers 11:00:00 11:00:00 WONDIFUL ity o f [facility] 2021-02-19 2021-02-19 Outpatient R FLORENCE [facility] [id number] Univers 10:03:49 23:59:00 [facility] 2021-02-19 2021-02-19 Outpatient R FLORENCE [facility] [id number] Univers 00:00:00 [facility]:00[facility] 2021-02-17 2021-02-17 Outpatient R [facility] [id number] Univers 17:40:00 [facility]:40:[facility] 2021-02-17 2021-02-17 Outpatient R JONA [facility] [id number] Univers 17:40:00 17:17:33 [facility] 2021-02-17 2021-02-17 Outpatient R JONA [facility] [id number] Univers 17:40:00 17:17:33 [facility] 2021-02-17 2021-02-17 Outpatient R JONA [facility] [id number] Univers 17:40:00 17:17:33 [facility] 2021-02-10 2021-02-10 Outpatient R ATUL [facility] [id number] Univers 09:00:00 09:00:00 SENDIL [facility] 2021-02-09 2021-02-09 Outpatient R MOMO [facility] [id number] Univers 14:45:00 14:45:00 [facility] 2021-02-09 2021-02-09 Outpatient R MOMO [facility] [id number] Univers 14:45:00 14:45:00 [facility] 2021-02-04 2021-02-04 Outpatient R MARCELINA VALERA [facility] [id number] Univers 10:30:00 10:30:00 MARCELINA VALERA [facility] 2021-02-03 2021-02-03 Outpatient R NISA, [facility] [id number] Univers 16:30:00 16:30:00 WONDIFUL ity o f [facility] 2021-01-27 2021-01-27 Outpatient R ANTONIONAV [facility] [id number] Univers 15:00:00 [facility]:00[facility] 2021-01-21 2021-01-21 Outpatient R ATUL, [facility] [id number] Univers 11:00:00 11:00:00 SENDIL [facility] 2021-01-20 2021-01-20 Outpatient R PRINCESSSANJAY [facility] [id number] Univers 11:00:00 11:00:00 [facility] 2021-01-14 2021-01-14 Outpatient R RIK, [facility] [id number] Univers 10:45:00 10:45:00 TRAY [facility] 2021-01-08 2021-01-08 Outpatient R MOMO, [facility] [id number] Univers 08:45:00 08:45:00 ISAC [facility] 2021-01-06 2021-01-06 Outpatient R AIMEE, [facility] [id number] Univers 11:00:00 11:00:00 SHORTY ity o f [facility] 2021-01-01 2021-01-01 Outpatient R NISA, [facility] [id number] Univers 15:00:00 15:00:00 WONDIFUL ity o f [facility] 2021-01-01 2021-01-01 Outpatient R NISA, [facility] [id number] Univers 15:00:00 15:00:00 WONDIFUL ity o f [facility] 2021-01-01 2021-01-01 Outpatient R NISA, [facility] [id number] Univers 15:00:00 15:00:00 WONDIFUL ity o f [facility] 2021-01-01 2021-01-01 Outpatient R NISA, [facility] [id number] Univers 15:00:00 15:00:00 WONDIFUL ity o f [facility] 2020-12-13 2020-12-13 Outpatient [facility] [id number] Univers 08:25:00 08:25:00 ity [facility] 2020-12-13 2020-12-13 Outpatient R BELGICA, [facility] [id number] Univers 08:25:00 08:25:00 TAMMY ity [facility] 2020-12-13 2020-12-13 Outpatient R BELGICA, [facility] [id number] Univers 08:25:00 08:25:00 TAMMY ity [facility] 2020-12-13 2020-12-13 Outpatient R BELGICA, [facility] [id number] Univers 08:25:00 08:25:00 TAMMY ity [facility] 2020-12-02 2020-12-02 Outpatient R JAKE, [facility] [id number] Univers 09:00:00 09:00:00 [facility] 2020-12-02 2020-12-02 Outpatient R JAKE, [facility] [id number] Univers 09:00:00 09:00:00 LIANA ity [facility] 2020-12-02 2020-12-02 Outpatient R JAKE, [facility] [id number] [facility] 09:00:00 09:00[facility]00 [facility] 2020-12-02 Outpatient R JAKE, [facility] [id number] [facility] 09:00:00 09:00:00 LIANA ity [facility] 2020-11-22 2020-11-22 Outpatient R BELGICA, [facility] [id number] Univers 09:40:00 09:40:00 TAMMY ity [facility] 2020-11-22 2020-11-22 Outpatient R BELGICA, [facility] [id number] Univers 09:40:00 09:40:00 TAMMY ity [facility] 2020-11-22 2020-11-22 Outpatient R BELGICA, [facility] [id number] Univers 09:40:00 09:40:00 TAMMY ity [facility] 2020-11-21 2020-11-21 Outpatient R DONOVAN, [facility] [id number] Univers 14:00:00 14:00:00 LAKISHA itjay [facility] 2020-11-20 2020-11-20 Outpatient R LAILA ORELLANA [facility] [id number] Univers 15:00:00 15:00:00 LAILA ORELLANA wanda [facility] 2020-11-09 2020-11-09 Outpatient R OSMAR [facility] [id number] Univers 08:20:00 08:20:00 RD itjay [facility] 2020-11-09 2020-11-09 Outpatient R OSMAR, [facility] [id number] Univers 08:20:00 08:20:00 RD [facility] 2020-11-09 2020-11-09 Outpatient R OSMAR, [facility] [id number] Univers 08:20:00 08:20:00 [facility] 2020-11-07 2020-11-07 Outpatient R VIK OLIVEIRA [facility] [id number] Univers 11:30:00 11:30:00 ity [facility] 2020-11-06 2020-11-06 Outpatient R NISA [facility] [id number] Univers 08:15:00 08:15:00 WONDIFUL ity o f [facility] 2020-10-16 2020-10-16 Outpatient R OSMAR [facility] [id number] Univers 18:00:00 18:00:00 RD [facility] 2020-10-02 2020-10-02 Outpatient R MOMO [facility] [id number] Univers 10:15:00 10:15:00 ISAC ity [facility] 2020-09-22 2020-09-22 Outpatient R SELF, [facility] [id number] Univers 08:00:00 08:00:00 EMERY ity o f [facility] 2020-09-15 2020-09-15 Outpatient R NISA [facility] [id number] Univers 00:00:00 00:00:00 WONDIFUL ity o f [facility] 2020-09-15 2020-09-15 Outpatient R NISA [facility] [id number] Univers 00:00:00 00:00:00 WONDIFUL ity o f [facility] 2020-09-14 2020-09-14 Outpatient R JONA, [facility] [id number] Univers 08:40:00 08:40:00 ROGE itjay [facility] 2020 2020 Outpatient R NISA, [facility] [id number] Univers 00:00:00 00:00:00 WONDIFUL ity o f [facility] 2020-09-10 2020-09-10 Outpatient R DONITA, [facility] [id number] Univers 08:00:00 08:00:00 SHANTI itjay [facility] 2020-09-08 2020-09-08 Outpatient R SELF, [facility] [id number] Univers 08:00:00 08:00:00 EMERY ity o f [facility] 2020-09-04 2020-09-04 Outpatient R NISA, [facility] [id number] Univers 16:00:00 16:00:00 WONDIFUL ity o f [facility] 2020-08-25 2020-08-25 Outpatient R NISA, [facility] [id number] Univers 11:00:00 11:13:03 WONDIFUL ity o f [facility] 2020-08-25 2020-08-25 Outpatient R NISA, [facility] [id number] Univers 10:30:00 10:30:00 WONDIFUL ity o f [facility] 2020-08-06 2020-08-06 Outpatient R PATRICIO, [facility] [id number] Univers 10:20:00 10:20:00 BALJIT flores [facility] 2020-08-06 2020-08-06 Outpatient R PATRICIO, [facility] [id number] Univers 09:00:00 09:00:00 BALJIT mark [facility] 2020-08-01 2020-08-01 Outpatient R MARY JANE, [facility] [id number] Univers 10:00:00 10:00:00 MATEO flores [facility] 2020-07-18 2020-07-18 Outpatient R LAILA ORELLANA [facility] [id number] Univers 11:00:00 11:00:00 LAILA ORELLANA i [facility] 2020-07-17 2020-07-17 Outpatient R VIK OLIVEIRA [facility] [id number] Univers 12:00:00 12:00:00 ity of [facility] 2020-07-14 2020-07-14 Outpatient R NISA [facility] [id number] Univers 10:45:00 10:45:00 WONDIFUL ity o f [facility] 2020-07-07 2020-07-07 Outpatient R MAKSIM [facility] [id number] Univers 08:30:00 08:30:00 [facility] 2020-06-27 Outpatient R NISA, [facility] [id number] Univers 15:15:00 15:15:00 WONDIFUL ity o f [facility] 2020-06-12 2020-06-12 Outpatient R MAKSIM [facility] [id number] Univers 15:45:00 15:45:00 AUBRIE [facility] 2020-06-05 2020-06-05 Outpatient R MOMO [facility] [id number] Univers 10:30:00 10:30:00 [facility] 2020-06-03 2020-06-03 Outpatient R ATUL [facility] [id number] Univers 09:00:00 09:00:00 [facility] 2020-05-16 2020-05-16 Outpatient R VIK OLIVEIRA [facility] [id number] Univers 16:30:00 16:30:00 ity [facility] 2020-05-09 2020-05-09 Outpatient R [facility] [id number] Univers 10:20:00 10:20:00 ity [facility] 2020-04-21 2020-04-21 Outpatient R ARGENIS [facility] [id number] Univers 11:40:00 11:40:00 DORITA [facility] 2020-04-18 2020-04-18 Outpatient R ATUL [facility] [id number] Univers 09:30:00 09:30:00 [facility] 2020-04-15 2020-04-15 Outpatient R [facility] [id number] Univers 10:20:00 10:20:00 ity [facility] 2020-04-04 2020-04-04 Outpatient R [facility] [id number] Univers 10:00:00 10:00:00 ity of [facility] 2020-04-01 2020-04-01 Outpatient R [facility] [id number] Univers 08:00:00 08:00:00 ity of [facility] 2020-03-20 2020-03-20 Outpatient R ROMARIO, [facility] [id number] Univers 10:00:00 10:00:00 FABRICIO [facility] 2020-03-10 2020-03-10 Outpatient R MIKAYLA, [facility] [id number] Univers 08:45:00 08:45:00 CL [facility] 2020-03-03 2020-03-03 Outpatient R MAKSIM, [facility] [id number] Univers 08:00:00 08:00:00 AUBRIE [facility] 2020-01-22 2020-01-22 [facility] [id number] Univers 15:45:00 15:45:00 ISAC [facility] 2020-01-22 2020-01-22 [facility] [id number] Univers 10:45[facility]00 [facility]45[facility] 2020-01-18 Outpatient R SANJAY SÁNCHEZ [facility] [id number] Univers 11:30:00 11:30:00 ity [facility] 2020-01-11 2020-01-11 Outpatient R LAILA ORELLANA [facility] [id number] Univers 11:00:00 11:00:00 LAILA ORELLANA i ty [facility] 2020-01-10 2020-01-10 Outpatient R NISA, [facility] [id number] Univers 10:00:00 10:00:00 WONDIFUL ity o f [facility] 2020-01-04 2020-01-04 Outpatient R VIK OLIVEIRA [facility] [id number] Univers 11:30:00 11:30:00 ity [facility] 2020-01-01 2020-01-01 Outpatient R [facility] [id number] Univers 08:00:00 08:00:00 ity of [facility] 2019-12-21 2019-12-21 Outpatient R NISA, [facility] [id number] Univers 09:30:00 09:30:00 WONDIFUL itjay o f [facility] 2019-12-06 2019-12-06 Outpatient Brock DOSS, [facility] [id number] Univers 11:00:00 11:00:00 FABRICIO [facility] 2019-11-30 2019-11-30 [facility] [id number] Univers 10:30:00 10:30:00 ISAC [facility] 2019-11-29 2019-11-29 [facility] [id number] Univers 08:15:00 08:15:00 [facility] 2019-11-23 2019-11-23 Outpatient R [facility] [id number] Univers 08:00:00 08:00:00 [facility] Results Test Description Test Time Test Comments Results Result Comments Source POCT HEMOGLOBIN A1C TEST 2022-08-24 14:54:00 Test Item Value Reference Range Interpretation Comme nts POCT HBA1C (test code = 4548-4) 4.6 % 4-6 [facility] HEMOGLOBIN A1C [id number] 14:54:00 Test Item Value Reference Range Interpretation Comments POCT HBA1C (test code = 4548-4) 4.6 % 4-6 [facility] GLUCOSE (AUTOMATED)2022-03-02 13:11:54 Test Item Value Reference Range Interpretation Comments POCT GLU (test code = 9777041838) 137 mg/dL 70-110 H Lab Interpretation (test code = Abnormal 80699-6) [facility] GLUCOSE (AUTOMATED)2022-03-02 13:11:54 Test Item Value Reference Range Interpretation Comments POCT GLU (test code = 6705030571) 137 mg/dL 70-110 H Lab Interpretation (test code = Abnormal 92840-2) [facility] [id number] 12:59:00 Test Item Value Reference Range Interpretation Comments POCT Glu (age>30days) (test code = 137 mg/dL 70-110 A 3342) Lab Interpretation (test code = Abnormal 95284-9) [facility] [id number] 12:59:00 Test Item Value Reference Range Interpretation Comments POCT Glu (age>30days) (test code = 137 mg/dL 70-110 A 3342) Lab Interpretation (test code = Abnormal 44073-1) [id number] 12:48:00 Test Item Value Reference Range Interpretation Comments POCT PREG (test code = 1605) Negative On board controls acceptable with Yes C Line (test code = 3574) POCT PREG LOT # (test code = 3575) [id number] POCT PREG TEST DATE (test 2023-06-25 code = 3576) [facility] [id number] 12:48:00 Test Item Value Reference Range Interpretation Comments POCT PREG (test code = 1605) Negative On board controls acceptable with Yes C Line (test code = 3574) POCT PREG LOT # (test code = 3575) [id number] POCT PREG TEST DATE (test 2023-06-25 code = 3576) [facility]
[2022-10-15 21:16] LABS: Urine Blood Negative (Negative); Urine Glucose Negative (Negative); Urine Protein Negative (Negative); Urine pH 5.5 (5.0-7.0)
[2022-10-15 21:18] LABS: Absolute Lymphocytes (CBC) 1.7 K/uL (0.7-4.9); Hematocrit 28.7 % (36.0-45.0); Lymphocytes % 31.2 % (15.3-44.8); MCV 94.1 fL (80-100); MPV 10.4 fL (7.6-11.3); RBC Red Blood Cell Count 3.05 M/uL (3.86-4.86)
[2022-10-15 21:34] LABS: Urine Bacteria 20-50 /HPF (<20); Urine Mucus 1+ /HPF (None Seen); Urine RBC <5 /HPF (None Seen)
[2022-10-15 21:40] LABS: Albumin 4.6 g/dL (3.4-5.0); Bilirubin Total 0.7 mg/dL (0.2-1.0); Potassium 3.6 mmol/L (3.5-5.1); Protein, Total 7.6 g/dL (6.4-8.2)
[2022-10-15] MEDS ORDERED: CEFTRIAXONE 1000 MG/VIAL ONE (22:28)
--- NOTE | 2022-10-15 22:39 | RAD REPORT ---
EXAM DESCRIPTION: RAD - Abdomen Acute Series - 10/15/2022 9:46 pm CLINICAL HISTORY: ABD PAIN COMPARISON: <Comparisons> Portable chest 09/17/2022 FINDINGS: Lungs are clear. Heart size and pulmonary vasculature are normal. No pleural effusion, pne umothorax or other acute cardiopulmonary process seen. Bowel gas pattern is nonspecific. No bowel obstruction, free air or other acute findings. No suspicio us calcifications. No other suspicious for significant findings. Portable technique and large body habitus limit examination. IMPRESSION: No acute chest finding. Abdomen and pelvis imaging is limited as detailed. No acute findings suspected.
--- NOTE | 2022-10-15 23:33 | EDPHYS ---
Physician Documentation [facility] Name: Linda Rahman Age: 47 yrs Sex: Female : 1975 Arrival Date: 10/15/2022 Time: 20:23 Bed 8 Private MD: ED Physician Young Hernandez HPI: 10/15 20:50 This 47 yrs old Female presents to ER via EMS with complaints of abd pain. yuridia 20:50 The patient presents with abdominal pain. 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 - Family history:: not pertinent. - Social history:: Smoking status: unknown. ROS: 20:51 Constitutional: Negative for fever, chills, and weight loss, Eyes: Negative for injury, yuridia pain, redness, and discharge, ENT: Negative for injury, pain, and discharge, Neck: Negative for injury, pain, and swelling, Cardiovascular: Negative for chest pain, palpitations, and edema, Respiratory: Negative for shortness of breath, cough, wheezing, and pleuritic chest pain, Back: Negative for injury and pain, : Negative for injury, bleeding, discharge, and swelling, MS/Extremity: Negative for injury and deformity, Skin: Negative for injury, rash, and discoloration, Neuro: Negative for headache, weakness, numbness, tingling, and seizure, Psych: Negative for depression, anxiety, suicide ideation, homicidal ideation, and hallucinations, Allergy/Immunology: Negative for hives, rash, and allergies, Endocrine: Negative for neck swelling, polydipsia, polyuria, polyphagia, and marked weight changes, Hematologic/Lymphatic: Negative for swollen nodes, abnormal bleeding, and unusual bruising. 20:51 Abdomen/GI: Positive for abdominal pain, nausea and vomiting, of the right upper quadrant, left upper quadrant, right lower quadrant and left lower quadrant. Exam: 20:51 Constitutional: This is a well developed, well nourished patient who is awake, alert, yuridia and in no acute distress. Head/Face: Normocephalic, atraumatic. Eyes: Pupils equal round and reactive to light, extra-ocular motions intact. Lids and lashes normal. Conjunctiva and sclera are non-icteric and not injected. Cornea within normal limits. Periorbital areas with no swelling, redness, or edema. ENT: Nares patent. No nasal discharge, no septal abnormalities noted. Tympanic membranes are normal and external auditory canals are clear. Oropharynx with no redness, swelling, or masses, exudates, or evidence of obstruction, uvula midline. Mucous membranes moist. Neck: Trachea midline, no thyromegaly or masses palpated, and no cervical lymphadenopathy. Supple, full range of motion without nuchal rigidity, or vertebral point tenderness. No Meningismus. Chest/axilla: Normal chest wall appearance and motion. Nontender with no deformity. No lesions are appreciated. Cardiovascular: Regular rate and rhythm with a normal S1 and S2. No gallops, murmurs, or rubs. Normal PMI, no JVD. No pulse deficits. Respiratory: Lungs have equal breath sounds bilaterally, clear to auscultation and percussion. No rales, rhonchi or wheezes noted. No increased work of breathing, no retractions or nasal flaring. Back: No spinal tenderness. No costovertebral tenderness. Full range of motion. Skin: Warm, dry with normal turgor. Normal color with no rashes, no lesions, and no evidence of cellulitis. MS/ Extremity: Pulses equal, no cyanosis. Neurovascular intact. Full, normal range of motion. Neuro: Awake and alert, GCS 15, oriented to person, place, time, and situation. Cranial nerves II-XII grossly intact. Motor strength 5/5 in all extremities. Sensory grossly intact. Cerebellar exam normal. Normal gait. Psych: Awake, alert, with orientation to person, place and time. Behavior, mood, and affect are within normal limits. 20:51 Abdomen/GI: Inspection: distension, that is mild, Bowel sounds: normal, Palpation: mild abdominal tenderness, in all quadrants, Liver: no appreciated palpable abnormalities, Hernia: not appreciated. Vital Signs: 20:25 BP 116 / 71; Pulse 95; Resp 18; Temp 99.2; Pulse Ox 100% on R/A; Weight 99.79 kg; pf1 Height 5 ft. 2 in. (157.48 cm); Pain 10/10; 21:30 BP 111 / 75; Pulse 92; Resp 18; Pulse Ox 98% on R/A; Pain 8/10; pf1 22:30 BP 105 / 57; Pulse 93; Resp 18; Pulse Ox 97% ; Pain 8/10; pf1 23:24 BP 115 / 78; Pulse 95; Resp 18; Pulse Ox 97% ; Pain 8/10; pf1 20:25 Body Mass Index 40.24 (99.79 kg, 157.48 cm) pf1 MDM: 20:41 Patient medically screened. [facility] 20:53 Differential diagnosis: bowel obstruction, Cholelithiasis. Data reviewed: vital signs, [facility] nurses notes, lab test result(s), radiologic studies. Consideration of Admission/Observation Patient was admitted/placed on observation. Escalation of care including admission/observation considered. I considered the following discharge prescriptions or medication management in the emergency department Medications were administered in the Emergency Department. See MAR. Test considered but Not performed: Ultrasound gall bladder usg. Care significantly affected by the following chronic conditions: Diabetes, Obesity. 10/15 20:48 Order name: CBC with Diff; Complete Time: 21:53 [facility] 10/15 20:48 Order name: CMP; Complete Time: 21:53 [facility] 10/15 20:48 Order name: Lipase; Complete Time: 21:53 [facility] 10/15 20:48 Order name: Urine Microscopic Only; Complete Time: 21:53 [facility] 10/15 21:16 Order name: Urine Dipstick-Ancillary; Complete Time: 21:53 EDMS 10/15 21:21 Order name: Urine --Ancillary (enter results); Complete Time: 21:53 10/15 20:48 Order name: Abdomen Acute Series XRAY; Complete Time: 22:43 [facility] 10/15 22:00 Order name: Urine Culture [facility] 10/15 22:01 Order name: CT Abd/Pelvis - Without Contrast [facility] 10/15 20:48 Order name: IV Saline Lock; Complete Time: 21:19 [facility] 10/15 20:48 Order name: Labs collected and sent; Complete Time: 21:19 [facility] 10/15 20:48 Order name: Urine Dipstick-Ancillary (obtain specimen); Complete Time: 21:19 [facility] 10/15 20:48 Order name: Urine Test (obtain specimen); Complete Time: 21:19 [facility] Administered Medications: 21:05 Drug: NS 0.9% 1000 ml Route: IV; Rate: 1 bolus; Site: right antecubital; pf1 22:00 Follow up: IV Status: Completed infusion; IV Intake: 1000ml pf1 22:31 Follow up: Response: No adverse reaction; IV Status: Completed infusion; IV Intake: aa9 1000ml 21:05 Drug: Pepcid (famotidine) 20 mg Route: IVP; Site: right antecubital; pf1 22:00 Follow up: Response: No adverse reaction; Marked relief of symptoms; Pain is decreased pf1 21:05 Drug: Zofran (Ondansetron) 4 mg Route: IVP; Site: right antecubital; pf1 22:00 Follow up: Response: No adverse reaction; Marked relief of symptoms; Nausea is decreasedpf1 21:05 Drug: morphine 4 mg Route: IVP; Infused Over: 4 mins; Site: right antecubital; pf1 22:00 Follow up: Response: No adverse reaction; Marked relief of symptoms; Pain is decreased; pf1 RASS: Alert and Calm (0) 22:31 Drug: NS 0.9% 1000 ml Route: IV; Rate: 1 bolus; Site: right antecubital; aa9 23:00 Follow up: IV Status: Completed infusion; IV Intake: 1000ml pf1 22:31 Drug: Rocephin (cefTRIAXone) 1 grams Route: IV; Rate: per protocol; Site: right aa9 antecubital; 23:03 Follow up: Response: No adverse reaction; IV Status: Completed infusion aa9 Disposition Summary: 10/15/22 23:32 Discharge Ordered Location: Home yuridia Problem: new yuridia Symptoms: have improved yuridia Condition: Stable yuridia Diagnosis - Abdominal pain, unspecified yuridia - UTI/ Urinary tract infection, site not specified yuridia - Diarrhea, unspecified yuridia - Morbid (severe) obesity due to excess calories yuridia - Hepatomegaly, not elsewhere classified yuridia - Splenomegaly, not elsewhere classified yuridia Followup: yuridia - With: Private Physician - When: 2 - 3 days - Reason: Recheck today's complaints, Continuance of care, Re-evaluation by your physician Followup: yuridia - With: Wayne Osei MD - When: 2 - 3 days - Reason: Recheck today's complaints, Re-evaluation by your physician Discharge Instructions: - Discharge Summary Sheet yuridia - Abdominal Pain, Adult uyridia - Diarrhea, Adult yuridia - Urinary Tract Infection, Adult yuridia - Urinary Tract Infection, Adult, [id number] yuridia - Obesity, Adult yuridia - Diarrhea, Adult, [id number] [facility] - Enlarged Spleen [facility] Forms: - Medication Reconciliation Form [facility] - Thank You Letter [facility] - Antibiotic Education [facility] - Prescription Opioid Use [facility] Prescriptions: - Cipro 250 mg Oral Tablet - take 1 tablet by ORAL route every 12 hours; 14 tablet; Refills: 0, Product [facility] Selection Permitted - Zofran 4 mg Oral Tablet - take 1 tablet by ORAL route every 12 hours As needed; 20 tablet; Refills: 0, [facility] Product Selection Permitted - promethazine 25 mg Oral Tablet - take 1 tablet by ORAL route every 6 hours As needed; 20 tablet; Refills: 0, [facility] Product Selection Permitted - dicyclomine 20 mg Oral Tablet - take 1 tablet by ORAL route 4 times per day; 28 tablet; Refills: 0, Product [facility] Selection Permitted Signatures: Dispatcher [employer] Young Contreras MD MD cha Avalos, Aylin, RN RN aa9 Laureen blanco RN RN pf1 Corrections: (The following items were deleted from the chart) 23:48 23:47 Allergies: Benadryl; pf1 pf1
--- NOTE | 2022-10-15 23:33 | ER ---
Nurse's Notes [facility] Name: Linda Rahman Age: 47 yrs Sex: Female : 1975 Arrival Date: 10/15/2022 Time: 20:23 Bed 8 Private MD: Diagnosis: Abdominal pain, unspecified;UTI/ Urinary tract infection, site not specified;Diarrhea, unspecified;Morbid (severe) obesity due to excess calories;Hepatomegaly, not elsewhere classified;Splenomegaly, not elsewhere classified Presentation: 10/15 20:25 Chief complaint: Patient states: Generalized abdominal pain of 10,onset 4 months with pf1 diarrhea x 1 episode today. Patient stated followed up with GI specialist today and was told possibly has IBS. Patient stated was next step is to have a colonoscopy. Coronavirus screen: Client denies travel out of the [place] in the last 14 days. Client presents with at least one sign or symptom that may indicate coronavirus-19. Standard/surgical mask placed on the client. 20:25 Method Of Arrival: EMS: [facility] pf1 20:25 Ebola Screen: Patient negative for fever greater than or equal to 101.5 degrees pf1 Fahrenheit, and additional compatible Ebola Virus Disease symptoms. Initial Sepsis Screen: Does the patient meet any 2 criteria? No. Patient's initial sepsis screen is negative. Does the patient have a suspected source of infection? No. Patient's initial sepsis screen is negative. Risk Assessment: Do you want to hurt yourself or someone else? Patient reports no desire to harm self or others. 20:25 Acuity: HOLLEY 3 pf1 23:47 Onset of symptoms was October 15, 2022. 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 - Family history:: not pertinent. - Social history:: Smoking status: unknown. Screenin:43 [facility] ED Fall Risk Assessment (Adult) History of falling in the last 3 months, pf1 including since admission No falls in past 3 months (0 pts) Confusion or Disorientation No (0 pts) Intoxicated or Sedated No (0 pts) Impaired Gait No (0 pts) Mobility Assist Device Used No (0 pt) Altered Elimination No (0 pt) Score/Fall Risk Level 0 - 2 = Low Risk Oriented to surroundings, Maintained a safe environment, Educated pt \T\ family on fall prevention, incl call for assistance when getting out of bed, Assessed \T\ reinforced patient's understanding of fall precautions, Provided non-skid footwear, Hourly rounding (assess needs \T\ fall precautionary measures) done, Used ambulatory aids as needed (educated on \T\ assisted with), Used gait belt as appropriate. Abuse screen: Denies threats or abuse. Nutritional screening: No deficits noted. Tuberculosis screening: No symptoms or risk factors identified. Assessment: 20:25 General: Appears in no apparent distress. comfortable, obese, well groomed, well pf1 developed, Behavior is calm, cooperative, appropriate for age, quiet. 20:25 Pain: Complains of pain in left lower quadrant and right lower quadrant and left upper pf1 quadrant and right upper quadrant Pain currently is 10 out of 10 on a pain scale. Neuro: No deficits noted. Level of Consciousness is awake, alert, obeys commands, Oriented to person, place, time, situation. Respiratory: No deficits noted. Airway is patent Respiratory effort is even, unlabored, Respiratory pattern is regular, symmetrical. GI: Abdomen is round non-distended, Bowel sounds present X 4 quads. Reports lower abdominal pain, upper abdominal pain, diarrhea. : No deficits noted. No signs and/or symptoms were reported regarding the genitourinary system. EENT: No deficits noted. No signs and/or symptoms were reported regarding the EENT system. Derm: No deficits noted. No signs and/or symptoms reported regarding the dermatologic system. 22:30 Reassessment: Patient appears in no apparent distress at this time. Patient and/or aa9 family updated on plan of care and expected duration. Pain level reassessed. Patient is alert, oriented x 3, equal unlabored respirations, skin warm/dry/pink. 23:25 Reassessment: Patient appears in no apparent distress at this time. Patient and/or pf1 family updated on plan of care and expected duration. Pain level reassessed. Patient is alert, oriented x 3, equal unlabored respirations, skin warm/dry/pink. Patient states symptoms have improved. Vital Signs: 20:25 BP 116 / 71; Pulse 95; Resp 18; Temp 99.2; Pulse Ox 100% on R/A; Weight 99.79 kg; pf1 Height 5 ft. 2 in. (157.48 cm); Pain 10/10; 21:30 BP 111 / 75; Pulse 92; Resp 18; Pulse Ox 98% on R/A; Pain 8/10; pf1 22:30 BP 105 / 57; Pulse 93; Resp 18; Pulse Ox 97% ; Pain 8/10; pf1 23:24 BP 115 / 78; Pulse 95; Resp 18; Pulse Ox 97% ; Pain 8/10; pf1 20:25 Body Mass Index 40.24 (99.79 kg, 157.48 cm) pf1 ED Course: 20:23 Patient arrived in ED. la1 20:35 Young Hernandez MD is Attending Physician. yuridia 20:38 Laureen blanco, ABDULLAHI is Primary Nurse. pf1 20:43 Triage completed. pf1 20:43 Arm band placed on left wrist. pf1 20:45 Patient has correct armband on for positive identification. Placed in gown. Bed in low pf1 position. Call light in reach. 21:00 No provider procedures requiring assistance completed. Inserted saline lock: 20 gauge pf1 in right antecubital area, using aseptic technique. Blood collected. 21:19 Urine Microscopic Only Sent. pf1 21:20 Lipase Sent. pf1 21:20 CMP Sent. pf1 21:20 CBC with Diff Sent. pf1 21:48 Abdomen Acute Series XRAY In Process Unspecified. EDMS 22:40 Urine Culture Sent. aa9 23:01 CT Abd/Pelvis - Without Contrast In Process Unspecified. EDMS 23:32 Wayne Osei MD is Referral Physician. yuridia 23:46 IV discontinued, intact, bleeding controlled, No redness/swelling at site. Pressure pf1 dressing applied. Administered Medications: 21:05 Drug: NS 0.9% 1000 ml Route: IV; Rate: 1 bolus; Site: right antecubital; pf1 22:00 Follow up: IV Status: Completed infusion; IV Intake: 1000ml pf1 22:31 Follow up: Response: No adverse reaction; IV Status: Completed infusion; IV Intake: aa9 1000ml 21:05 Drug: Pepcid (famotidine) 20 mg Route: IVP; Site: right antecubital; pf1 22:00 Follow up: Response: No adverse reaction; Marked relief of symptoms; Pain is decreased pf1 21:05 Drug: Zofran (Ondansetron) 4 mg Route: IVP; Site: right antecubital; pf1 22:00 Follow up: Response: No adverse reaction; Marked relief of symptoms; Nausea is decreasedpf1 21:05 Drug: morphine 4 mg Route: IVP; Infused Over: 4 mins; Site: right antecubital; pf1 22:00 Follow up: Response: No adverse reaction; Marked relief of symptoms; Pain is decreased; pf1 RASS: Alert and Calm (0) 22:31 Drug: NS 0.9% 1000 ml Route: IV; Rate: 1 bolus; Site: right antecubital; aa9 23:00 Follow up: IV Status: Completed infusion; IV Intake: 1000ml pf1 22:31 Drug: Rocephin (cefTRIAXone) 1 grams Route: IV; Rate: per protocol; Site: right aa9 antecubital; 23:03 Follow up: Response: No adverse reaction; IV Status: Completed infusion aa9 Medication: 23:48 VIS not applicable for this client. pf1 Intake: 22:00 IV: 1000ml; Total: 1000ml. pf1 22:31 IV: 1000ml; Total: 2000ml. aa9 23:00 IV: 1000ml; Total: 3000ml. pf1 Outcome: 23:32 Discharge ordered by . yuridia 23:46 Discharged to home ambulatory, with family. pf1 23:46 Condition: improved 23:46 Discharge instructions given to patient, Instructed on discharge instructions, follow up and referral plans. medication usage, Demonstrated understanding of instructions, follow-up care, medications, Prescriptions given X 4. 23:48 Patient left the ED. pf1 Signatures: Dispatcher [employer] EDYoung Baxter MD MD cha Attema, Lee, BATCH UNLOADER-C BATCH UNLOADER-Cla1 Kallie Whyte RN RN aa9 Laureen blanco RN RN pf1 Corrections: (The following items were deleted from the chart) 23:25 22:30 BP 115 / 78; Pulse 95bpm; Resp 18bpm; Pulse Ox 97%; Pain 8/10; pf1 pf1 23:48 23:47 Allergies: Benadryl; pf1 pf1
[2022-10-16 00:43] VITALS: TEMP 99.2
[2022-10-16 00:52] VITALS: O2SAT 97
[2022-10-16 00:53] VITALS: BP 115/78
--- NOTE | 2022-10-17 15:15 | RAD REPORT ---
EXAM DESCRIPTION: CT - Abdomen Pelvis Wo Contrast - 10/16/2022 6:17 am CLINICAL HISTORY: 47 years Female, ABD PAIN TECHNIQUE: Helical CT axial images are obtained from the lung bases to the pubic symphysis without I V contrast. No oral contrast was administered. Multiplanar reconstruction. This exam was performed ac cording to our departmental dose-optimization program, which includes automated exposure control, adj ustment of the mA and/or kV according to patient size and/or use of iterative reconstruction techniqu e. COMPARISON: 10/09/20192019 FINDINGS: LUNG BASES: No basilar consolidation or effusions. LIVER: Severe hepatomegaly measuring up to 25 cm in greatest CC dimension. Normal attenuation. No focal masses. HEPATOBILIARY: Status post cholecystectomy. No intra- or extrahepatic ductal dilatation. SPLEEN: Severe splenomegaly measuring up to 21 cm in greatest CC dimension. PANCREAS: Normal size and contour. No focal mass. ADRENAL GLANDS: Normal size. No adrenal masses. KIDNEYS: Bilateral kidneys are normal in size without obstructing calculi or hydronephrosis. No ne phrolithiasis. No significant cysts are present. BOWEL AND MESENTERY: No small or large bowel dilatation. No colonic diverticulosis. Normal appendix. No abnormal mesenteric lymphadenopathy. No free fluid or pneumoperitoneum. RETROPERITONEUM: Normal caliber abdominal aorta without aneurysm. No abnormal retroperitoneal lympha denopathy. PELVIS: Urinary bladder is suboptimally distended. Uterus and adnexal regions are unremarkable. ABDOMINAL WALL: The abdominal wall is intact. BONES: No suspicious osseous lytic or blastic lesions seen. IMPRESSION: 1. No acute intra-abdominal or pelvic disease. 2. Severe hepatosplenomegaly. 3. Status post cholecystectomy. Electronically signed by: Chemo Salinas MD 10/15/2022 11:16 PM FEED RESEARCH AIDE Due to temporary technical issues with the PACS/Fluency reporting system, reports are being signed by the in house radiologists without review as a courtesy to insure prompt reporting. The interpreting radiologist is fully responsible for the content of the report.
== END 2022-10-15 23:48 | disposition home or self-care (01) ==
LOC: ER 20:21
DX: N39.0 Urinary tract infection, site not specified (principal); R19.7 Diarrhea, unspecified; R16.0 Hepatomegaly, not elsewhere classified; E66.01 Morbid (severe) obesity due to excess calories; Z68.41 Body mass index [BMI] 40.0-44.9, adult; Z88.1 Allergy status to other antibiotic agents
CPT/HCPCS: 96365; 96361; 87088; 85025; 87086; 36415; 81025; 83690; 80053; 74176; 74022; 96375; 99284; J7030 ×2; J2405; 81003; 81015

== ENCOUNTER 2022-10-21 23:19 | Emergency (ER) | payer OTHER ==
[2022-10-21] MEDS ORDERED: FAMOTIDINE 20 MG/2 ML VIAL IV ONE (23:49)
[2022-10-21] MEDS ORDERED: NA CHLORIDE 0.9% 1,000 ML ONE (23:49)
[2022-10-21] MEDS ORDERED: ONDANSETRON 4 MG/2 ML VIAL ONE (23:49)
--- OUTSIDE RECORDS SUMMARY | 2022-10-21 23:54 | XMS REPORT | Continuity of Care Document ---
:1975 Author Organization [facility] t Address [address] [place] [address] Care Team Providers Name Role Phone TRAY JOLLY Primary Care Physician Unavailable CECILE MÁRQUEZ Attending Clinician Unavailable TRAY JOLLY Attending Clinician Unavailable BEVERLY CORNELIUS Attending Clinician Unavailable NAV ANTONIO Attending Clinician Unavailable GREG JACKSON Attending Clinician Unavailable Kvng Stark RN Attending Clinician Unavailable Kemal Hackett Attending Clinician Geovanny Willis MD Attending Clinician Vicki Saavedra MD Attending Clinician Vern Bernardo DO Attending Clinician [phone], [facility] Attending Clinician Unavailable Beverly Joy Attending Clinician ARNOLDO ELIZABETH Attending Clinician Unavailable Doctor Unassigned, Jobos Attending Clinician Unavailable Tray Jolly MD Attending Clinician LAYNE YI Attending Clinician Unavailable CHANDANA WALSH Attending Clinician Unavailable DESTINY ONEILL Attending Clinician Unavailable Destiny Oneill MD Attending Clinician Van HOLLINS, Osmar Attending Clinician OSMAR ARAUJO Attending Clinician Unavailable Melony Irwin RN Attending Clinician Unavailable Nisa HOLLINS, Andrea Adams Attending Clinician Cecile Márquez MD Attending Clinician BERRY ZHAO Attending Clinician Unavailable Misty SPLITTING MACHINE FEEDER, Berry Attending Clinician MATEO DE LA TORRE Attending Clinician Unavailable STELLA WORLEY Attending Clinician Unavailable STELLA WORLEY Attending Clinician Unavailable , Ry Carbajal Attending Clinician Unavailable SANJAY SÁNCHEZ Attending Clinician Unavailable CLAU AGUILAR Attending Clinician Unavailable VIK OLIVEIRA Attending Clinician Unavailable Atul HOLLINS, Ricardo K.H. Attending Clinician ISAC BARR Attending Clinician Unavailable Sheri Berrios MD Attending Clinician SHERI BERRIOS Attending Clinician Unavailable Vik Oliveira MD Attending Clinician CAPRICE HENRIQUEZ Attending Clinician Unavailable Young Zarate RN Attending Clinician Unavailable Isac Barney Attending Clinician Mateo De La Torre MD Attending Clinician Arnoldo Elizabeth MD Attending Clinician Jessie MAGAÑASWGenesis Attending Clinician GABRIELLA SALAS Attending Clinician Unavailable ANDREA PAULA Attending Clinician Unavailable Scot [facility] Attending Clinician Yumiko NI, Sanjay Attending Clinician Corry Woodall Attending Clinician JAYMIE CORRY A Attending Clinician Unavailable Caprice Henriquez [...] Clinician Unavailable CECILE MÁRQUEZ Admitting Clinician Unavailable Vicki Saavedra MD Admitting Clinician VICKI SAAVEDRA Admitting Clinician Unavailable STELLA WORLEY Admitting Clinician Unavailable Cecile Márquez MD Admitting Clinician MATEO DE LA TORRE Admitting Clinician Unavailable DESTINY ONEILL Admitting Clinician Unavailable Eladia Admitting Clinician Unavailable CAPRICE HENRIQUEZ Admitting Clinician Unavailable Payers Payer Name Policy Type Policy Number Effective Date Expiration Date Mitzy [facility] DUAL [id number] 2021 COMP CHOICE PPO 00:00:00 DSNP [facility] [place] STAR PLUS [id number] 2021 00:00:00 MEDICAID [facility] [place] [id number] 2016 00:00:00 [facility] [employer] [place] [id number] 2022 00:00:00 [facility] 2021 (MEDICARE 00:00:00 REPLACEMENT HMO) [employer] [id number] 2020 BEHAVIORAL 00:00:00 SOLUTIONS Problems Condition Condition Condition Status Onset Resolution Last Treating Co mments Source Name Details Category Date Date Treatment Clinician Date Migraines Migraines Disease Active Uni vers 1-24 ity of 00:00: [place] 00 Medical Branch Allergic Allergic Disease Active Unive rs rhinitis rhinitis 1-24 ity of 00:00: [place] 00 Medical Branch (HFpEF) (HFpEF) Disease Active Univers heart heart 1-23 ity of failure failure 00:00: [place] with with 00 Medical preserved preserved Bran ch ejection ejection fraction fraction Diarrhea, Diarrhea, Disease Active Uni vers unspecifie unspecifie 1-20 it y of d type d type 00:00: [place] 00 Medical Branch Constipati Constipati Disease Active U nivers on, on, 1-20 ity of unspecifie unspecifie 00:[place] d [place] 00 Medical constipati constipati Br anch on type on type Generalize Generalize Disease Active U nivers d d 1-20 ity of abdominal abdominal 00:00: Laura forrester pain pain 00 Medical Branch Incontinen Incontinen Disease Active U nivers ce of ce of 1-20 ity of feces with feces with 00:[place] fecal fecal 00 Medical urgency urgency Branch Stress Stress Disease Active Univers 1-20 ity of 00:00: [place] 00 Medical Branch Nausea Nausea Disease Active Univers 1-20 ity of 00:00: [place] 00 Medical Branch Gastritis Gastritis Disease Active Uni vers without without 1-20 ity of bleeding, bleeding, 00:00: Laura forrester unspecifie unspecifie 00 Me dical d d Branch chronicity chronicity , , unspecifie unspecifie d d gastritis gastritis type type Overflow Overflow Disease Active Unive rs diarrhea diarrhea 1-20 ity of 00:00: [place] 00 Medical Branch Allergy, Allergy, Disease Active 2021-09 Unive rs subsequent subsequent 2-09 it y of encounter encounter 00:00: Laura forrester 00 Medical Branch Poor Poor Disease Active 2021-09 Univers dentition dentition 2-09 ity of requiring requiring 00:00: Laura forrester referral referral 00 Medica l to to Branch dentistry dentistry Mouth Mouth Disease Active 2021-09 Univers breathing breathing 2-09 ity of 00:00: [place] 00 Medical Branch Weakening Weakening Disease Active 2022-0 Uni vers of pelvic of pelvic 4-08 ity of fundus fundus 00:00: [place] 00 Medical Branch 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 Added automatic ally from request for surgery [id number] Chronic Chronic Disease Active Overview: Univ ers superficia superficia 4-05 Formattin ity of l l 00:00: g of this [place] gastritis gastritis 00 note Medi cipriano without without might be Branch bleeding bleeding different from the original. Added automatic ally from request for surgery [id number] Hyperplast Hyperplast Disease Active Overview : Univers ic polyps ic polyps 4-05 Formattin i ty of of stomach of stomach 00:00: g of this [place] 00 note Medical might be Branch different from the original. Added automatic ally from request for surgery [id number] Indigestio Indigestio Disease Active 2020-09 Overview : Univers n n 2-15 Formattin ity of 00:00: g of this [place] 00 note Medical might be Branch different from the original. Added automatic ally from request for surgery [id number] Bloating Bloating Disease Active 2020-09 Overview: Un jerrod 2-15 Formattin ity of 00:00: g of this [place] 00 note Medical might be Branch different from the original. Added automatic ally from request for surgery [id number] Dental Dental Disease Active Univers caries caries [...] right right 00:00: [place] 00 Medical Branch Gastroesop Gastroesop Disease Active 2016-09 U evelyn hageal hageal 2-04 ity of reflux reflux 00:00: [place] disease disease 00 Medical without without Branch esophagiti esophagiti s s GERD GERD Disease Active 2016-09 Univers (gastroeso [...] ity of persistent persistent 00:00: [place] 00 [place] Fatty Fatty Disease Active Univers [...] it y of a a 00:00: [place] 00 Medical Branch Dyslipidem Dyslipidem Disease Active 2015-09 U nivers ia ia 1-22 ity of 00:00: [place] [facility] Branch Vitamin Vitamin Disease Active 2015-09 Univers B12 B12 1-10 ity of deficiency deficiency 00:00[place] [facility] 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 6-09 ity of 00:00: [place] [facility] Branch Abnormal Abnormal Disease Active Unive rs uterine uterine 5-23 ity of bleeding bleeding 00:00: [place] [facility] Submucous Submucous Disease Active Uni vers leiomyoma leiomyoma 5-23 ity of of uterus of uterus 00:00[place] [facility] NSAID NSAID Disease Active Univers long-term long-term 2-16 ity of use use 00:00: [place] [facility] History of History of Disease Active U nivers tubal tubal 2-05 ity of ligation ligation 00:00: [place] [facility] 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 00:00: [place] disorder, disorder, 00 [facility] in in Branch remission remission Hypothyroi Hypothyroi Disease Active U nivers d d 2-05 ity of 00:00: [place] [facility] Essential Essential Disease Active Uni vers hypertensi hypertensi 2-05 it y of on, benign on, benign 00:00: [place] [facility] Well woman Well woman Disease Active U nivers exam exam 2-05 ity of 00:00: [facility] Chest pain Chest pain Disease Active U nivers 9-13 ity of 00:00: [place] [facility] Peripheral Peripheral Disease Active U nivers neuropathy neuropathy it y of [facility] 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 ity of [facility] PCOS PCOS Disease Active Univers (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 But pt still eats it. TOMATO DRUG Active Low Other-Cmnt 2017-0 Univer s INGREDI 7- ity of 00:00: [place] 00 Medical Branch Codeine Propensi Active Itching 20180 Univer s ty to 1-17 ity of adverse 00:00: [place] reaction 00 Medical s Branch CODEINE DRUG Active Low ITCHING 2017- Univers INGREDI 1-17 ity of 00:00: [place] 00 Medical Branch Lorazepa Propensi Active Swelling 2016-09 Hard to Uni vers m ty to 0-02 swallow ity of adverse 00:00: [place] reaction 00 Medical s Branch LORAZEPA DRUG Active High Swelling 2016-09 Univer s M INGREDI 0-02 ity of 00:00: [place] 00 Medical Branch Diphenhy Propensi Active Swelling 20170 Univ ers dramine ty to 7-18 ity [...] Anaphylaxis 2017-0 U nivers e ty to 123 ity of adverse 00:00: [place] reaction 00 Medical s Branch MECLIZIN DRUG Active High Anaphylaxis 2017-0 Uni vers E INGREDI 1- ity of 00:00: [place] 00 Medical Branch Amoxicil Propensi Active Hives Univer s franca ty to 05-30 ity of adverse 00:00: [place] reaction 00 Medical s Branch Meperidi Propensi Active Hallucinatio 0 Univers ne Hcl ty to ns 05-30 ity of adverse 00:00: [place] reaction 00 Medical s Branch Ziprasid Propensi Active Hives 2015-0 Univer s one Hcl ty to 05-30 ity of adverse 00:00: [place] reaction 00 Medical s Branch MEPERIDI DRUG Active High Hallucinates 2015-0 Un jerrod NE HCL INGREDI 05-30 ity of 00:00: [place] 00 Medical Branch ZIPRASID DRUG Active High Hives 2015-0 Univers ONE HCL INGREDI 05-30 ity of 00:00: [place] 00 Medical Branch AMOXICIL DRUG Active Med Hives 2015-0 Univers FRANCA INGREDI 05-30 ity of 00:00: [place] 00 Medical Branch Social History Social Habit Start Date Stop Date Quantity Comments Source History SDOH Social Unive rsity of Connections Get [place] Med ical Together Branch History SDOH Social Unive rsity of Connections Anabaptism [place] [facility] History SDOH Social Unive rsity of Connections [place] [facility] Membership Branch History SDOH Social Unive rsity of Connections [place] [facility] Meetings Branch Alcohol intake 2022-10-20 2022-10-20 0 /d University of 00:00:00 00:00:00 [place] [facility] History SDOH 2022-10-19 2022-10-19 1 University o f Alcohol Frequency 00:00:00 00:00:00 [place] M edical Branch History SDOH 2022-10-19 2022-10-19 0 University o f Alcohol Std Drinks 00:00:00 00:00:00 [place] [facility] History SDOH 2022-10-19 2022-10-19 1 University o f Alcohol Binge 00:00:00 00:00:00 [place] [facility] al Branch History SDOH Social 2022-10-19 2022-10-19 5 Unive rsity of Connections Phone 00:00:00 00:00:00 [place] M edical Branch History SDOH Social 2022-10-19 2022-10-19 7 Unive rsity of Connections Living 00:00:00 00:00:00 [place] [facility] History SDOH 2022-10-19 2022-10-19 0 University o f Physical Activity 00:00:00 00:00:00 [place] M edical DPW Branch History SDOH 2022-10-19 2022-10-19 0 University o f Physical Activity 00:00:00 00:00:00 [place] M edical MPS Branch History SDOH 2022-10-19 2022-10-19 4 University o f Financial 00:00:00 00:00:00 [place] [facility] History SDOH Food 2022-10-19 2022-10-19 1 Univers ity of Worry 00:00:00 00:00:00 [place] [facility] History SDOH Food 2022-10-19 2022-10-19 1 Univers ity of Scarcity 00:00:00 00:00:00 [place] [facility] History HIOH 2022-10-19 2022-10-19 2 University o f Transport Med 00:00:00 00:00:00 [place] [facility] al Branch History SDOH 2022-10-19 2022-10-19 2 University o f Transport Non-Med 00:00:00 00:00:00 [facility] Exposure to 2022-10-08 2022-10-18 Not sure [facility] SARS-CoV-2 (event) 00:00:00 14:59:00 [facility] Tobacco Comment 2022-06-17 2022-06-17 10 years ago Univers ity of 00:00:00 00:00:00 [facility] Cigarettes smoked 2022-06-17 2022-06-17 Univers ity of current (pack per 00:00:00 00:00:00 [facility] ) - Reported Branch Cigarette 2022-06-17 2022-06-17 University of pack-years 00:00:00 00:00:00 [facility] Tobacco use and 2022-06-17 2022-06-17 Smokeless Universit y of exposure 00:00:00 00:00:00 tobacco non-user [facility] History of tobacco 1982-10-20 2007-10-20 Cigarette Smoker University of use 00:00:00 00:00:00 [facility] Sex [birth year] At [birth year] Universit y of 00:00:00 00:00:00 [facility] Smoking Status Start Date Stop Date Source Ex-smoker 2022-06-17 00:00:00 2022-06-17 00:00:00 Universi ty of [facility] Medications Ordered Filled Start Stop Current Ordering Indication Dosage Frequency Signature Comments Components Source Medication Medication Date Date Medication? Clinician (SIG) Name Name rosuvastati Yes 10mg 10 mg, Univ ers n (CRESTOR) 1-25 Oral, QHS, it y of tablet 10 03:00: First dose [place] mg 00 on Psychiatric 10/19/22 at Branch 2100, Until Discontinu ed, Routine lactulose Yes 30mL 30 mL, Univer s (CEPHULAC) 1-25 Oral, BID, ity of solution 30 02:00: First dose [place] mL 00 (after Medical last Branch modificati on) on Tue10/19/22 at 2000, Until Discontinu ed, Routine SUMAtriptan 2022- No 50mg 50 mg, Uni vers (IMITREX) 10-1924 Oral, ity of tablet 50 20:15: 21:00 ONCE, 1 [place] mg 00 :00 dose, On [facility] 10/19/22 at 1415, Routine NaCl 0.9% 2022- No 500mL at 999 Univ ers (NS) bolus 10-19 mL/hr, 500 it y of infusion 19:30: 18:59 mL, IV [place] 500 mL 00 :00 Piggyback, Medical ONCE, 1 Branch dose, On Tue10/19/22 at 1330, STAT MULTIVIT Yes [facility] &MINERALS/F -24 mouth. ity of ERROUS FUM 17:49: [place] ([facility] 09 Medical VITAMIN Branch ORAL) METHYLCELLU Yes Univer s LOSE (FIBER -24 ity of THERAPY 17:49: [place] MISC) 09 [facility] Branch DOCUSATE Yes Take by [facility] s SODIUM -24 mouth. ity of (COLACE 17:49: [place] ORAL) [address] [place] [address] Branch vitamin C Yes 1000mg Take 1,000 Univers with derrell 1-24 mg by ity of hips 1,000 17:49: mouth [place] mg tablet 09 daily. [facility] Branch CRANBERRY Yes Take by [facility] rs FRUIT -24 mouth ity of EXTRACT 17:49: daily. [place] (CRANBERRY 09 Medical ORAL) [place] MULTIVIT Yes Take by Univer s &MINERALS/F 1-24 mouth. ity of ERROUS FUM 17:49: [place] (MULTI 09 Medical VITAMIN Branch ORAL) METHYLCELLU Yes Univer s LOSE (FIBER 1-24 ity of THERAPY 17:49: [place] MIS) 09 Medical Branch DOCUSATE Yes Take by Univer s SODIUM 1-24 mouth. ity of (COLACE 17:49: [place] ORAL) 09 Medical Branch vitamin C Yes 1000mg Take 1,000 Univers with derrell 1-24 mg by ity of hips 1,000 17:49: mouth [place] mg tablet 09 daily. Medical Branch CRANBERRY Yes Take by Unive rs FRUIT 1-24 mouth ity of EXTRACT 17:49: daily. [place] (CRANBERRY 09 Medical ORAL) Branch MULTIVIT Yes Take by Univer s &MINERALS/F 1-24 mouth. ity of ERROUS FUM 17:49: [place] (MULTI 09 Medical VITAMIN Branch ORAL) METHYLCELLU Yes Univer s LOSE (FIBER 1-24 ity of THERAPY 17:49: [place] [facility]) 09 Medical Branch DOCUSATE Yes Take by Univer s SODIUM 1-24 mouth. ity of (COLACE 17:49: [place] ORAL) Medical Branch vitamin C Yes 1000mg Take 1,000 Univers with derrell 1-24 mg by ity of hips 1,000 17:49: mouth [place] mg tablet 09 daily. Medical Branch CRANBERRY Yes Take by Unive rs FRUIT 1-24 mouth ity of EXTRACT 17:49: daily. [place] (CRANBERRY 09 Medical ORAL) Branch MULTIVIT Yes Take by Univer s &MINERALS/F 1-24 mouth. ity of ERROUS FUM 17:49: [place] (MULTI 09 Medical VITAMIN Branch ORAL) METHYLCELLU Yes Univer s LOSE (FIBER 1-24 ity of THERAPY 17:49: [place] [facility]) 09 Medical Branch DOCUSATE Yes Take by Univer s SODIUM 1-24 mouth. ity of (COLACE 17:49: [place] ORAL) 09 Medical Branch vitamin C Yes 1000mg Take 1,000 Univers with derrell 1-24 mg by ity of hips 1,000 17:49: mouth [place] mg tablet 09 daily. Medical Branch CRANBERRY Yes Take by Unive rs FRUIT 1-24 mouth ity of EXTRACT 17:49: daily. [place] (CRANBERRY 09 Medical ORAL) Branch MULTIVIT Yes Take by Univer s &MINERALS/F -24 mouth. ity of ERROUS FUM 17:49: [place] (MULTI Medical VITAMIN Branch ORAL) METHYLCELLU Yes Univer s LOSE (FIBER -24 ity of THERAPY 17:49: [place] MISC) [facility] Branch DOCUSATE Yes Take by Univer s SODIUM -24 mouth. ity of (COLACE 17:49: [place] ORAL) [address] [place] [address] vitamin C Yes 1000mg Take 1,000 Univers with derrell 1-24 mg by ity of hips 1,000 17:49: mouth [place] mg tablet 09 daily. Medical Branch CRANBERRY Yes Take by [facility] FRUIT -24 mouth ity of EXTRACT 17:49: daily. [place] (CRANBERRY Medical ORAL) [place] polyethylen Yes 17g 17 g, Unive rs e glycol 1-24 Oral, BID, ity o f 3350 powder 16:45: First dose [place] 17 g 00 on Psychiatric 10/19/22 at Branch 1045, Until Discontinu ed, Routine pantoprazol Yes 40mg 40 mg, Univ ers e 1-24 Oral, BID, ity of (PROTONIX) 16:15: First dose [place] 2 mg/mL 00 on Psychiatric oral 10/19/22 at Branch suspension 1015, 40 mg Until Discontinu ed, Routine montelukast 0 Yes 10mg 10 mg, Univ ers (SINGULAIR) 24 Oral, ity of tablet 10 15:00: DAILY, [place] mg 00 First dose Medical on [facility] 10/19/22 at 0900, Until Discontinu ed, Routine citalopram 0 Yes 40mg 40 mg, Unive rs (CELEXA) 124 Oral, ity of tablet 40 15:00: DAILY, [place] mg 00 First dose Medical on [facility] 10/19/22 at 0900, Until Discontinu ed, Routine losartan 2022-0 Yes 50mg 50 mg, Univers (COZAAR) 1-24 Oral, BID, ity o f tablet 50 14:00: First dose [place] mg 00 on Psychiatric 10/19/22 at Branch 0800, Until Discontinu ed, Routine fluticasone 2023-0 Yes 2{puff} 2 Puff, Univers propionate 24 Inhalation ity of (FLOVENT) 14:00: , Q12H, [place] 110 00 First dose Medical mcg/actuati on Tue on inhaler 10/19/22 at 2 Puff 0800, Until Discontinu ed, Routine
Is this order for a patient with suspected or confirmed COVID-19 infection? No
Does this order have Pulmonary/ Critical Care approval? No busPIRone 2022-0 Yes 20mg 20 mg, Univer s (BUSPAR) 10-19 Oral, BID, ity o f tablet 20 14:00: First dose [place] mg 00 on Tue Medical 10/19/22 at Branch 0800, Until Discontinu ed, Routine FOLIC ACID 2022-0 3- No Take by Uni vers ORAL 10-19 mouth ity of 13:15: 00:00 daily. [place] 59 :00 Medical Branch cholecalcif 2022-0 3- No 1000U Take 1,000 Univers edmar, 10-19 Units by ity of vitamin D3, 13:15: 00:00 mouth [place] 25 mcg 59 :00 daily. Medical (1,000 Branch unit) tablet CALCIUM 2022-0 2022- No Take by Univer s ORAL 10-19 mouth ity of 13:15: 00:00 daily. [place] 59 :00 Medical Branch DOCOSAHEXAN 3-0 3- No 1000mg Take 1,000 Univers OIC 10-19 mg by ity of ACID/EPA 13:15: 00:00 mouth [place] (FISH OIL 59 :00 daily. Medical ORAL) Branch BIOTIN ORAL 2022-0 3- No Take by Un jerrod 10-19 mouth. ity of 13:15: 00:00 [place] 59 :00 Medical Branch FOLIC ACID 2023-0 2023- No Take by Uni vers ORAL 10-19 mouth ity of 13:15: 00:00 daily. [place] 59 :00 Medical Branch cholecalcif 2023-0 2023- No 1000U Take 1,000 Univers edmar, 10-19 Units by ity of vitamin D3, 13:15: 00:00 mouth [place] 25 mcg 59 :00 daily. Medical (1,000 Branch unit) tablet CALCIUM 2022-0 2022- No Take by [facility] s ORAL 10-19 mouth ity of 13:15: 00:00 daily. [place] 59 :00 Medical Branch DOCOSAHEXAN 2022-0 2022- No 1000mg Take 1,000 Univers OIC 10-1924 mg by ity of ACID/EPA 13:15: 00:00 mouth [place] (FISH OIL 59 :00 daily. Medical ORAL) Branch BIOTIN ORAL 2022-0 2022- No Take by Un jerrod 10-19 mouth. ity of 13:15: 00:00 [place] 59 :00 Medical Branch FOLIC ACID 2022-0 2022- No Take by Uni vers ORAL 10-19 mouth ity of 13:15: 00:00 daily. 59 :00 Medical Branch cholecalcif 2022-0 2022- No 1000U Take 1,000 Univers edmar, 10-19 Units by ity of vitamin D3, 13:15: 00:00 mouth [place] 25 mcg 59 :00 daily. Medical (1,000 Branch unit) tablet CALCIUM 2022-0 2022- No Take by [facility] ORAL 10-19 mouth ity of 13:15: 00:00 daily. 59 :00 Medical Branch DOCOSAHEXAN 2022-0 2022- No 1000mg Take 1,000 Univers OIC 10-19 mg by ity of ACID/EPA 13:15: 00:00 mouth [place] (FISH OIL 59 :00 daily. Medical ORAL) Branch BIOTIN ORAL 2022-0 2022- No Take by Un jerrod 10-19 mouth. ity of 13:15: 00:00 [place] 59 :00 Medical Branch levothyroxi 2022-0 Yes 50ug 50 mcg, Uni vers ne 10-19 Oral, ity of (SYNTHROID) 12:00: QAM-0600, [place] tablet 50 00 First dose Medi cipriano mcg on Tue Branch 10/19/22 at 0600, Until Discontinu ed, Routine NaCl 0.9% 2022-0 3- No 500mL at 999 [facility] ers (NS) bolus 10-19 mL/hr, 500 it y of infusion 10:14: 12:01 mL, IV [place] 500 mL 00 :20 Piggyback, Medical ONCE, 1 Branch dose, On Tue10/19/22 at 0415, SABRINA traMADoL 2022- No 50mg 50 mg, Univer s (ULTRAM) 10-19 Oral, ONCE ity of tablet 50 09:45: 10:14 NOW, 1 [place] mg 00 :00 dose, On [facility] 10/19/22 at 0345, Routine diltiazem Yes 120mg 120 mg, Univ ers XR 10-19 Oral, BID, ity of (DILT-XR) 05:15: First dose [place] capsule 120 00 (after Medica l mg last Branch modificati on) on [facility] 10/18/22 at 2315, Until Discontinu ed traMADoL 2022- No 50mg 50 mg, Univer s (ULTRAM) 10-19 Oral, ONCE ity of tablet 50 05:15: 04:44 NOW, 1 [place] mg 00 :00 dose, On Medical [facility] 10/18/22 at 2315, Routine acetaminoph Yes 650mg 650 mg, Un jerrod en 10-19 Oral, Q6H ity of (TYLENOL) 05:00: ABX, First [place] tablet 650 00 dose on Medica l mg [facility] 10/18/22 at 2300, Until Discontinu ed, Routine lidocaine Yes 1{patch 1 Patch, U nivers (LIDODERM) 10-19 } Topical, ity o f 5 % (700 05:00: Administer Emanuel as mg/patch) 00 over 12 Medical patch 1 Hours, Branch Patch Q12H ABX, First dose on Tue10/18/22 at 2300, Until Discontinu ed, SABRINA lactulose 2022- No 30mL 30 mL, Unive rs (CEPHULAC) 10-19 Oral, ity of solution 30 04:15: 16:39 DAILY, Emanuel as mL 00 :06 First dose Medical on Tue [place] 10/18/22 at 2215, Until Discontinu ed, Routine sucralfate Yes 1g 1 g, Oral, U nivers (CARAFATE) 10-19 AC+HS, ity of tablet 1 g 03:45: First dose [place] 00 on [facility] 10/18/22 at Branch 2145, Until Discontinu ed, Routine famotidine 0 Yes 20mg 20 mg, Unive rs (PEPCID AC) 10-19 Oral, BID, it y of tablet 20 03:45: [place] 00 on [facility] 10/18/22 at Branch 2145, Until Discontinu ed, Routine simethicone 2022-0 Yes 80mg 80 mg, Univ ers (GAS RELIEF 10-19 Oral, ity of (SIMETHICON 03:45: PC[place]HS, [place] E[place] 00 First dose Medical chewable on [facility] Branch tablet 80 10/18/22 at mg 2145, Until Discontinu ed, Routine sennosides- 2022-0 Yes 1{tbl} 1 tablet, [facility] docusate 10-19 Oral, ity of sodium 03:45: DAILY, [place] (SENOKOT-S) 00 First dose Me dical 8.6-50 mg on [facility] per tablet 10/18/22 at 1 tablet 2144, Until Discontinu ed, Routine psyllium 2022-0 2022- No 1{packe 1 Packet, [facility] husk 10-19 t} Oral, ity of (METAMUCIL 03:45: 16:39 DAILY, [place] (SUGAR 00 :06 First dose Medical FREE)) 3.4 on [facility] gram oral 10/18/22 at powder 2145, packet 1 Until Packet Discontinu ed, Routine dicyclomine 2022-0 2022- No 20mg 20 mg, Uni vers (BENTYL) 10-19 Oral, QID, ity of tablet 20 03:45: 16:38 First dose [place] mg 00 :09 on [facility] 10/18/22 at Branch 2145, Until Discontinu ed, Routine ondansetron 0 Yes 4mg 4 mg, Unive rs (ZOFRAN-ODT 10-19 Oral, Q8H ity of ) 03:33: ABX, First [place] disintegrat 00 dose on Medic al ing tablet [facility] 4 mg 10/18/22 at 2145, Until Discontinu ed, Routine cyclobenzap 0 Yes 5mg 5 mg, Unive rs rine 1-24 Oral, ity of (FLEXERIL) 03:23: Q8HPRN, [place] tablet 5 mg 31 Starting Medi cipriano on Tue Branch 10/18/22 at 2123, Until Discontinu ed, Routine, Muscle Spasms, tension headaches albuterol 2022-0 Yes 2{puff} 2 Puff, [place] (VENTOLIN) 1-24 Inhalation ity of inhaler 2 03:10: , Q6HPRN, [place] as Puff 47 Starting Medical on Tue Branch 10/18/22 at 2110, Until Discontinu ed, Routine, Wheezing, Shortness of Breath polyethylen 2022-0 Yes [id number] 17g Take 1 Univers e glycol 1-24 Packet by ity of 3350 17 00:00: mouth in [place] gram powder 00 the Medical morning Branch and 1 Packet in the evening. lactulose 2022-0 Yes [id number] 30mL Take 30 mL Univers 10 gram/15 1-24 by mouth ity o f mL solution 00:00: in the [place] morning Medical and 30 mL Branch in the evening. ondansetron 2022-0 Yes [id number] 4mg Take 1 Univers 4 mg 1-24 tablet by ity of disintegrat 00:00: mouth [place] ing tablet 00 every 8 Medica l (eight) Branch hours as needed for Nausea and Vomiting (N/V). sucralfate 2022-0 Yes [id number] 1g Take 1 Univers 1 gram 1-24 tablet by ity of tablet 00:00: mouth [place] 00 before Medical meals and Branch at bedtime. pantoprazol 2022-0 Yes [id number] 40mg Take 1 Univers e 40 mg EC 1-24 tablet by ity of tablet 00:00: mouth in [place] 00 the Medical morning Branch and 1 tablet in the evening. SUMAtriptan 2022-0 Yes [id number] 50mg Take 1 Univers 50 mg 1-24 tablet by ity of tablet 00:00: mouth as [place] 00 needed for Medical Migraine. Branch May repeat dose after >=2 hours, max dose 200mg in 24 hours. polyethylen 2022-0 Yes [id number] 17g Take 1 Univers e glycol 1-24 Packet by ity of 3350 17 00:00: mouth in [place] gram powder 00 the Medical morning Branch and 1 Packet in the evening. lactulose 2023-0 Yes [id number] 30mL Take 30 mL Univers 10 gram/15 1-24 by mouth ity o f mL solution 00:00: in the [facility] morning Medical and 30 mL Branch in the evening. ondansetron 3-0 Yes [id number] 4mg Take 1 Univers 4 mg 1-24 tablet by ity of disintegrat 00:00: mouth [place] ing tablet 00 every 8 Medica l (eight) Branch hours as needed for Nausea and Vomiting (N/V). sucralfate 2023-0 Yes [id number] 1g Take 1 Univers 1 gram 1-24 tablet by ity of tablet 00:00: mouth [place] 00 before Medical meals and Branch at bedtime. pantoprazol 2023-0 Yes [id number] 40mg Take 1 Univers e 40 mg EC 1-24 tablet by ity of tablet 00:00: mouth in [place] the Medical morning Branch and 1 tablet in the evening. SUMAtriptan 3-0 Yes [id number] 50mg Take 1 Univers 50 mg 1-24 tablet by ity of tablet 00:00: mouth as [place] 00 needed for Medical Migraine. Branch May repeat dose after >=2 hours, max dose 200mg in 24 hours. polyethylen 2023-0 Yes [id number] 17g Take 1 Univers e glycol 1-24 Packet by ity of 3350 17 00:00: mouth in [place] gram powder 00 the Medical morning Branch and 1 Packet in the evening. lactulose 3-0 Yes [id number] 30mL Take 30 mL Univers 10 gram/15 1-24 by mouth ity o f mL solution 00:00: in the [facility] morning Medical and 30 mL Branch in the evening. ondansetron 3-0 Yes [id number] 4mg Take 1 Univers 4 mg 1-24 tablet by ity of disintegrat 00:00: mouth [place] ing tablet 00 every 8 Medica l (eight) Branch hours as needed for Nausea and Vomiting (N/V). sucralfate 2023-0 Yes [id number] 1g Take 1 Univers 1 gram 1-24 tablet by ity of tablet 00:00: mouth [place] 00 before Medical meals and Branch at bedtime. pantoprazol 2023-0 Yes [id number] 40mg Take 1 Univers e 40 mg EC 1-24 tablet by ity of tablet 00:00: mouth in [place] 00 the Medical morning Branch and 1 tablet in the evening. SUMAtriptan Yes [id number] 50mg Take 1 Univers 50 mg -24 tablet by ity of tablet 00:00: mouth as [place] 00 needed for Medical Migraine. Branch May repeat dose after >=2 hours, max dose 200mg in 24 hours. iopamidol 2022- No [id number] 73mL 73 mL, Univers (ISOVUE 10-19 Intravenou ity o f 370-500 mL) 00:00: 00:00 s, ONCE, 1 [place] injection 00 :00 dose, On Medica l 73 mL [facility] 10/18/22 at 1800, Routine lactulose 2022- No 45mL 45 mL, Unive rs (CEPHULAC) 10-18 Oral, ity of solution 45 23:45: 23:48 ONCE, 1 [place] mL 00 :00 dose, On [facility] 10/18/22 at 1745, SABRINA dicyclomine 2022- No 20mg 20 mg, Uni vers (BENTYL) 10-18 Intramuscu ity of injection 22:30: 22:11 lar, ONCE, [place] 20 mg 00 :00 1 dose, On [facility] 10/18/22 at 1630, Routine NaCl 0.9% 2022- No 1000mL at 999 Uni vers (NS) bolus 10-18 mL/hr, ity of infusion 22:30: 23:42 1,000 mL, [place] 1,000 mL 00 :00 IV Medical Infusion, Branch ONCE, 1 dose, On [facility] 10/18/22 at 1630, SABR[place] MULTIVIT Yes Take by Univer s &MINERALS/F 23 mouth. ity of ERROUS FUM 21:34: [place] ([facility] 37 Medical VITAMIN Branch ORAL) METHYLCELLU Yes Univer s LOSE (FIBER 23 ity of THERAPY 21:34: [place] MIS) 37 Medical Branch DOCUSATE Yes Take by [facility] s SODIUM 23 mouth. ity of (COLACE 21:34: [place] ORAL) 37 Medical Branch vitamin C Yes 1000mg Take 1,000 Univers with derrell 1-23 mg by ity of hips 1,000 21:34: mouth [place] mg tablet 37 daily. Medical Branch DOCOSAHEXAN Yes 1000mg Take 1,000 Univers OIC 1-23 mg by ity of ACID/EPA 21:34: mouth [place] (FISH OIL 37 daily. Medical ORAL) Branch FOLIC ACID Yes Take by [facility] ers ORAL 1-23 mouth ity of 20:39: daily. [place] [address] Medical Branch cholecalcif Yes 1000U Take 1,000 Univers edmar, 1-23 Units by ity of vitamin D3, 20:39: mouth [place] 25 mcg 28 daily. Medical (1,000 Branch unit) tablet CRANBERRY Yes Take by [facility] FRUIT - mouth ity of EXTRACT 20:39: daily. [place] (CRANBERRY 28 Medical ORAL) Branch CALCIUM Yes Take by Univers ORAL -23 mouth ity of 20:39: daily. [place] [address] Medical Branch BIOTIN ORAL Yes Take by Uni vers - mouth. ity of 20:39: [place] [address] Medical Branch peg-electro 0 Yes [id number] Take as Univers lyte soln 1-20 9102 directed ity of 236-22.74-6 00:00: before [place] .74 -5.86 00 colonoscop Medi cipriano gram y Branch solution peg-electro 2022-0 Yes [id number] Take as Univers lyte soln 1-20 9102 directed ity of 236-22.74-6 00:00: before [place] .74 -5.86 00 colonoscop Medi cipriano gram y Branch solution peg-electro 2022-0 Yes [id number] Take as Univers lyte soln 1-20 9102 directed ity of 236-22.74-6 00:00: before [place] .74 -5.86 00 colonoscop Medi cipriano gram y Branch solution peg-electro 2022-0 Yes [id number] Take as Univers lyte soln 1-20 9102 directed ity of 236-22.74-6 00:00: [place] .74 -5.86 00 colonoscop Medi cipriano gram y Branch solution peg-electro 2022-0 Yes [id number] Take as Univers lyte soln 1-20 9102 directed ity of 236-22.74-6 00:00: [place] .[place] -5.86 00 colonoscop Medi cipriano gram y Branch solution peg-electro 0 2022- No [id number] Take as [facility] teofilo armendarizn 10-15 9102 directed ity o f 236-22.74-6 00:00: 00:00 before [place] .74 -5.86 00 :00 colonoscop Medi cipriano gram y Branch solution peg-electro 2022- No [id number] Take as [facility] lyvelma soln 10-15 9102 directed ity o f 236-22.74-6 00:00: 00:00 before [place] .74 -5.86 00 :00 colonoscop Medi cipriano gram y Branch solution busPIRone 3-0 Yes [id number] 20mg Take 2 [place] 10 mg 1-17 tablets by ity of tablet 00:00: mouth in [place] 00 the Medical morning Branch and 2 tablets in the evening. busPIRone 3-0 Yes [id number] 20mg Take 2 [place] 10 mg 1-17 tablets by ity of tablet 00:00: mouth in [place] 00 the Medical morning Branch and 2 tablets in the evening. busPIRone 3-0 Yes [id number] 20mg Take 2 [place] 10 mg 1-17 tablets by ity of tablet 00:00: mouth in [place] 00 the Medical morning Branch and 2 tablets in the evening. busPIRone 3-0 Yes [id number] 20mg Take 2 [place] 10 mg 1-17 tablets by ity of tablet 00:00: mouth in [place] 00 the Medical morning Branch and 2 tablets in the evening. busPIRone 3-0 Yes [id number] 20mg Take 2 [place] 10 mg 1-17 tablets by ity of tablet 00:00: mouth in [place] 00 the Medical morning Branch and 2 tablets in the evening. busPIRone 2023-0 Yes [id number] 20mg Take 2 [place] 10 mg 1-17 tablets by ity of tablet 00:00: mouth in [place] 00 the Medical morning Branch and 2 tablets in the evening. busPIRone 2023-0 Yes [id number] 20mg Take 2 [place] 10 mg 1-17 tablets by ity of tablet 00:00: mouth in [place] 00 the Medical morning Branch and 2 tablets in the evening. busPIRone 2023-0 Yes [id number] 20mg Take 2 [place] 10 mg 1-17 tablets by ity of tablet 00:00: mouth in [place] 00 the Medical morning Branch and 2 tablets in the evening. busPIRone 2023-0 Yes [id number] 20mg Take 2 [place] 10 mg 1-17 tablets by ity of tablet 00:00: mouth in [place] 00 the Medical morning Branch and 2 tablets in the evening. busPIRone 2023-0 Yes [id number] 20mg Take 2 [place] 10 mg 1-17 tablets by ity of tablet 00:00: mouth in [place] 00 the Medical morning Branch and 2 tablets in the evening. sulfamethox 3-0 Yes TAKE 1 Univ ers azole-trime 1-14 TABLET BY ity of thoprim 00:00: MOUTH [place] 800-160 mg 00 EVERY 12 Medic al per tablet HOURS FOR Bran ch 7 DAYS traMADoL 50 2022-0 Yes TAKE 1 Univ ers mg tablet 1-14 TABLET BY ity o f 00:00: MOUTH [place] 00 EVERY 8 Medical HOURS Branch NEEDED sulfamethox 3-0 Yes TAKE 1 Univ ers azole-trime 1-14 TABLET BY ity of thoprim 00:00: MOUTH [place] 800-160 mg 00 EVERY 12 Medic al per tablet HOURS FOR Bran ch 7 DAYS traMADoL 50 2022-0 Yes TAKE 1 Univ ers mg tablet 1-14 TABLET BY ity o f 00:00: MOUTH [place] 00 EVERY 8 Medical HOURS Branch NEEDED sulfamethox 3-0 Yes TAKE 1 Univ ers azole-trime 1-14 TABLET BY ity of thoprim 00:00: MOUTH [place] 800-160 mg 00 EVERY 12 Medic al per tablet HOURS FOR Bran ch 7 DAYS traMADoL 50 2022-0 Yes TAKE 1 Univ ers mg tablet 1-14 TABLET BY ity o f 00:00: MOUTH [place] 00 EVERY 8 Medical HOURS Branch NEEDED sulfamethox 3-0 Yes TAKE 1 Univ ers azole-trime 1-14 TABLET BY ity of thoprim 00:00: MOUTH [place] 800-160 mg 00 EVERY 12 Medic al per tablet HOURS FOR Bran ch 7 DAYS traMADoL 50 2022-0 Yes TAKE 1 Univ ers mg tablet 1-14 TABLET BY ity o f 00:00: MOUTH [place] 00 EVERY 8 Medical HOURS Branch NEEDED traMADoL 50 Yes TAKE 1 Univ ers mg tablet 10-09 TABLET BY ity o f 00:00: MOUTH [place] 00 EVERY 8 Medical HOURS Branch NEEDED traMADoL 50 2022- No 50mg Take 50 mg Univers mg tablet 10-09 by mouth ity o f 00:00: 00:00 every 8 [place] 00 :00 (eight) Medical hours as Branch needed for Pain (scale 1-3) (as directed). traMADoL 50 2022- No 50mg Take 50 mg Univers mg tablet 10-09 by mouth ity o f 00:00: 00:00 every 8 [place] 00 :00 (eight) Medical hours as Branch needed for Pain (scale 1-3) (as directed). sulfamethox 0 2022- No TAKE 1 Uni vers azole-trime -10-19 TABLET BY it y of thoprim 00:00: 00:00 MOUTH [place] 800-160 mg 00 :00 EVERY 12 Medic al per tablet HOURS FOR Bran ch 7 DAYS sulfamethox 2022- No TAKE 1 Uni vers azole-trime -10-19 TABLET BY it y of thoprim 00:00: 00:00 MOUTH [place] 800-160 mg 00 :00 EVERY 12 Medic al per tablet HOURS FOR Bran ch 7 DAYS sulfamethox 0 2022- No TAKE 1 Uni vers azole-trime -10-19 TABLET BY it y of thoprim 00:00: 00:00 MOUTH [place] 800-160 mg 00 :00 EVERY 12 Medic al per tablet HOURS FOR Bran ch 7 DAYS metroNIDAZO 2022-0 Yes [id number] 500mg Take 1 Univers LE 500 mg 1-12 tablet by ity o f tablet 00:00: mouth in [place] 00 the Medical morning Branch and 1 tablet in the evening. dicyclomine 2022-0 Yes [id number] 20mg Take 1 Univers 20 mg 1-12 tablet by ity of tablet 00:00: mouth 4 [place] 00 (four) Medical times Branch daily. metroNIDAZO 2022-0 Yes [id number] 500mg Take 1 Univers LE 500 mg 1-12 tablet by ity o f tablet 00:00: mouth in [place] 00 the Medical morning Branch and 1 tablet in the evening. dicyclomine 3-0 Yes [id number] 20mg Take 1 Univers 20 mg 1-12 tablet by ity of tablet 00:00: mouth 4 [place] ([facility]) Medical times [place] daily. metroNIDAZO 2023-0 Yes [id number] 500mg Take 1 Univers LE 500 mg 1-12 tablet by ity o f tablet 00:00: mouth in [place] 00 the Medical morning Branch and 1 tablet in the evening. dicyclomine 2023-0 Yes [id number] 20mg Take 1 Univers 20 mg 1-12 tablet by ity of tablet 00:00: mouth 4 [place] ([facility]) [facility] times [place] daily. metroNIDAZO 2023-0 Yes [id number] 500mg Take 1 Univers LE 500 mg 1-12 tablet by ity o f tablet 00:00: mouth in [place] 00 the Medical morning Branch and 1 tablet in the evening. dicyclomine 2023-0 Yes [id number] 20mg Take 1 Univers 20 mg 1-12 tablet by ity of tablet 00:00: mouth 4 [place] ([facility] times [place] daily. metroNIDAZO 2023-0 Yes [id number] 500mg Take 1 Univers LE 500 mg 1-12 tablet by ity o f tablet 00:00: mouth in [place] 00 the Medical morning Branch and 1 tablet in the evening. dicyclomine 2023-0 Yes [id number] 20mg Take 1 Univers 20 mg 1-12 tablet by ity of tablet 00:00: mouth [place] ([facility]) [facility] times [place] daily. metroNIDAZO 2023-0 Yes [id number] 500mg Take 1 Univers LE 500 mg 1-12 tablet by ity o f tablet 00:00: mouth in [place] 00 the Medical morning Branch and 1 tablet in the evening. dicyclomine 2023-0 Yes [id number] 20mg Take 1 Univers 20 mg 1-12 tablet by ity of tablet 00:00: mouth 4 [place] [address] ([facility]) Medical times [place] daily. metroNIDAZO 2023-0 2023- No [id number] 500mg Take 1 Univers LE 500 mg 1-12 -24 tablet by ity of tablet 00:00: 00:00 mouth in [place] 00 :00 the Medical morning Branch and 1 tablet in the evening. dicyclomine 2023-0 2023- No [id number] 20mg Take 1 Univers 20 mg 1-12 01-24 tablet by ity of tablet 00:00: 00:00 mouth 4 [place] 00 :00 ([facility]) Medical times Branch daily. metroNIDAZO 2023-0 3- No [id number] 500mg Take 1 Univers LE 500 mg 10-07 tablet by ity of tablet 00:00: 00:00 mouth in [place] 00 :00 the Medical morning Branch and 1 tablet in the evening. dicyclomine 2023-0 3- No [id number] 20mg Take 1 Univers 20 mg 10-07 tablet by ity of tablet 00:00: 00:00 mouth 4 [place] 00 :00 ([facility]) Medical times Branch daily. metroNIDAZO 2023-0 3- No [id number] 500mg Take 1 Univers LE 500 mg 10-07 tablet by ity of tablet 00:00: 00:00 mouth in [place] 00 :00 the Medical morning Branch and 1 tablet in the evening. dicyclomine 2023-0 3- No [id number] 20mg Take 1 Univers 20 mg 10-07 tablet by ity of tablet 00:00: 00:00 mouth 4 [place] 00 :00 ([facility]) Medical times Branch daily. dicyclomine 2023-0 Yes 20mg Take 20 mg Univers 20 mg 1-10 by mouth 4 ity of tablet 00:00: ([facility]) [place] 00 times Medical daily. Branch metoclopram 2023-0 Yes TAKE 1 Univ ers dariela HCl 10 1-10 TABLET BY ity of mg tablet 00:00: [facility] 00 EVERY 6 Medical HOURS (30 Branch MINUTES BEFORE MEALS AND AT BEDTIME) dicyclomine 2023-0 Yes 20mg Take 20 mg Univers 20 mg 1-10 by mouth 4 ity of tablet 00:00: ([facility]) [place] 00 times Medical daily. Branch metoclopram 2023-0 Yes TAKE 1 Univ ers dariela HCl 10 1-10 TABLET BY ity of mg tablet 00:00: MOUTH [place] 00 EVERY 6 Medical HOURS (30 Branch MINUTES BEFORE MEALS AND AT BEDTIME) metoclopram 2023-0 Yes TAKE 1 Univ ers dariela HCl 10 1-10 TABLET BY ity of mg tablet 00:00: [facility] 00 EVERY 6 Medical HOURS (30 Branch MINUTES BEFORE MEALS AND AT BEDTIME) metoclopram 2023-0 Yes TAKE 1 Univ ers dariela HCl 10 1-10 TABLET BY ity of mg tablet 00:00: EVERY 6 Medical HOURS (30 Branch MINUTES BEFORE MEALS AND AT BEDTIME) metoclopram 2023-0 Yes TAKE 1 Univ ers dariela HCl 10 1-10 TABLET BY ity of mg tablet 00:00: EVERY 6 Medical HOURS (30 Branch MINUTES BEFORE MEALS AND AT BEDTIME) metoclopram 2023-0 Yes TAKE 1 Univ ers dariela HCl 10 1-10 TABLET BY ity of mg tablet 00:00: EVERY 6 Medical HOURS (30 Branch MINUTES BEFORE MEALS AND AT BEDTIME) metoclopram 2023-0 Yes TAKE 1 Univ ers dariela HCl 10 1-10 TABLET BY ity of mg tablet 00:00: EVERY 6 Medical HOURS (30 Branch MINUTES BEFORE MEALS AND AT BEDTIME) metoclopram 2023-0 Yes TAKE 1 Univ ers dariela HCl 10 1-10 TABLET BY ity of mg tablet 00:00: EVERY 6 Medical HOURS (30 Branch MINUTES BEFORE MEALS AND AT BEDTIME) metoclopram 2023-0 Yes TAKE 1 Univ ers dariela HCl 10 1-10 TABLET BY ity of mg tablet 00:00: EVERY 6 Medical HOURS (30 Branch MINUTES BEFORE MEALS AND AT BEDTIME) metoclopram 2023-0 Yes TAKE 1 Univ ers dariela HCl 10 1-10 TABLET BY ity of mg tablet 00:00: EVERY 6 Medical HOURS (30 Branch MINUTES BEFORE MEALS AND AT BEDTIME) metoclopram 2023-0 Yes TAKE 1 Univ ers dariela HCl 10 1-10 TABLET BY ity of mg tablet 00:00: EVERY 6 Medical HOURS (30 Branch MINUTES BEFORE MEALS AND AT BEDTIME) metoclopram 2023-0 Yes TAKE 1 Univ ers dariela HCl 10 1-10 TABLET BY ity of mg tablet 00:00: EVERY 6 Medical HOURS (30 Branch MINUTES BEFORE MEALS AND AT BEDTIME) metoclopram 2023-0 Yes TAKE 1 Univ ers dariela HCl 10 1-10 TABLET BY ity of mg tablet 00:00: EVERY 6 Medical HOURS (30 Branch MINUTES BEFORE MEALS AND AT BEDTIME) dicyclomine 2023-0 2023- No 20mg Take 20 mg Univers 20 mg 1-10 10-07 by mouth 4 ity of tablet 00:00: 00:00 (four) [place] 00 :00 times Medical daily. Branch ibuprofen 2021-09 Yes TAKE 1 Univer s [...] capsule HOURS FOR Branch 10 DAYS ibuprofen 2021-09- No TAKE 1 Unive rs 800 mg 2-21 10-24 TABLET BY ity of tablet 00:00: 00:00 MOUTH [place] 00 :00 EVERY 8 Medical HOURS WITH Branch FOOD NEEDED FOR PAIN Nitrofurant 2021-09- No TAKE 1 Uni vers oin&Nit. 2-10-19 CAPSULE BY ity of Macrocryst 00:00: 00:00 MOUTH [place] 100 mg 00 :00 EVERY 12 Medical capsule HOURS FOR Branch 10 DAYS ibuprofen 2021-09- No TAKE 1 Unive rs 800 mg 2-21 10-24 TABLET BY ity of tablet 00:00: 00:00 MOUTH [place] 00 :00 EVERY 8 Medical HOURS WITH Branch FOOD NEEDED FOR PAIN Nitrofurant 2021-09- No TAKE 1 Uni vers oin&Nit. 2-26 -24 CAPSULE BY ity of Macrocryst 00:00: 00:00 MOUTH [place] 100 mg 00 :00 EVERY 12 Medical capsule HOURS FOR Branch 10 DAYS ibuprofen 2021-09- No TAKE 1 Unive rs 800 mg 2-26 -24 TABLET BY ity of tablet 00:00: 00:00 MOUTH [place] 00 :00 EVERY 8 Medical HOURS WITH Branch FOOD NEEDED FOR PAIN Nitrofurant 2021-09- No TAKE 1 Uni vers oin&Nit. 2-21 10-24 CAPSULE BY ity of Macrocryst 00:00: 00:00 MOUTH [place] 100 mg 00 :00 EVERY 12 Medical capsule HOURS FOR Branch [...] 00 DAILY Medica l NEEDED Branch diphenoxyla 2021-09- No TAKE 2 Uni vers te-atropine 2-17 -24 TABLETS BY i ty of 2.5-0.025 00:00: 00:00 MOUTH [place]CE [place] mg tablet 00 :00 DAILY Medica l NEEDED Branch diphenoxyla 2021-09- No TAKE 2 Uni vers te-atropine 2-17 -24 TABLETS BY i ty of 2.5-0.025 00:00: 00:00 MOUTH ONCE [place] mg tablet 00 :00 DAILY Medica l NEEDED Branch diphenoxyla 2021-09- No TAKE 2 Uni vers te-atropine 2-17 -24 TABLETS BY i ty of 2.5-0.025 00:00: 00:00 MOUTH ONCE [place] mg tablet 00 :00 DAILY Medica l NEEDED Branch pregabalin 2021-09 Yes [id number] 150mg Take 1 Univers 150 mg 2-14 capsule by ity of capsule 00:00: mouth in [address] and 1 capsule at noon and 1 capsule in the evening. pregabalin 2021-09 Yes [id number] 150mg Take 1 Univers 150 mg 2-14 capsule by ity of capsule 00:00: mouth in [address] and 1 capsule at noon and 1 capsule in the evening. pregabalin 2021-09 Yes [id number] 150mg Take 1 Univers 150 mg 2-14 capsule by ity of capsule 00:00: mouth in [address] and 1 capsule at noon and 1 capsule in the evening. pregabalin 2021-09 Yes [id number] 150mg Take 1 Univers 150 mg 2-14 capsule by ity of capsule 00:00: mouth in [address] and 1 capsule at noon and 1 capsule in the evening. pregabalin 2021-09 Yes [id number] 150mg Take 1 Univers 150 mg 2-14 capsule by ity of capsule 00:00: mouth in [address] and 1 capsule at noon and 1 capsule in the evening. pregabalin 2021-09 Yes [id number] 150mg Take 1 Univers 150 mg 2-14 capsule by ity of capsule 00:00: mouth in [address] and 1 capsule at noon and 1 capsule in the evening. pregabalin 2021-09 Yes [id number] 150mg Take 1 Univers 150 mg 2-14 capsule by ity of capsule 00:00: mouth in [address] and 1 capsule at noon and 1 capsule in the evening. pregabalin 2021-09 Yes [id number] 150mg Take 1 Univers 150 mg 2-14 capsule by ity of capsule 00:00: mouth in [address] morning [place] and 1 capsule at noon and 1 capsule in the evening. pregabalin 2021-09 Yes [id number] 150mg Take 1 Univers 150 mg 2-14 capsule by ity of capsule 00:00: mouth in [place] 00 the [facility] and 1 capsule at noon and 1 capsule in the evening. pregabalin 2021-09 Yes [id number] 150mg Take 1 Univers 150 mg 2-14 capsule by ity of capsule 00:00: mouth in [place] [address] the [facility] and 1 capsule at noon and 1 capsule in the evening. pregabalin 2021-09 Yes [id number] 150mg Take 1 Univers 150 mg 2-14 capsule by ity of capsule 00:00: mouth in [address] and 1 capsule at noon and 1 capsule in the evening. pregabalin 2021-09 Yes [id number] 150mg Take 1 Univers 150 mg 2-14 capsule by ity of capsule 00:00: mouth in [address] and 1 capsule at noon and 1 capsule in the evening. pregabalin 2021-09- No [id number] 150mg Take 1 Univers 150 mg 2-14 01-24 capsule by ity of capsule 00:00: 00:00 mouth in [place] 00 :00 the [facility] and 1 capsule at noon and 1 capsule in the evening. pregabalin 2021-09- No [id number] 150mg Take 1 Univers 150 mg 2-14 -24 capsule by ity of capsule 00:00: 00:00 mouth in [place] 00 :00 the [facility] and 1 capsule at noon and 1 capsule in the evening. pregabalin 2021-09- No [id number] 150mg Take 1 Univers 150 mg 2-14 -24 capsule by ity of capsule 00:00: 00:00 mouth in [place] 00 :00 [facility] and 1 capsule at noon and 1 capsule in the evening. montelukast 2021-09 Yes [id number] 10mg Take 1 Univers (SINGULAIR) 2-09 tablet by ity of 10 mg 00:00: mouth in [place] [facility] 00 the [facility] Branch montelukast 2021-09 Yes [id number] 10mg Take 1 Univers (SINGULAIR) 2-09 tablet by ity of 10 mg 00:00: mouth in [place] tablet 00 the Medical morning. [facility] 2021-09 Yes [id number] 10mg Take 1 Univers (SINGULAIR) 2-09 tablet by ity of 10 mg 00:00: mouth in [place] tablet 00 the Medical morning. [facility] 2021-09 Yes [id number] 10mg Take 1 Univers (SINGULAIR) 2-09 tablet by ity of 10 mg 00:00: mouth in [place] tablet 00 the Medical morning. [facility] 2021-09 Yes [id number] 10mg Take 1 Univers (SINGULAIR) 2-09 tablet by ity of 10 mg 00:00: mouth in [place] tablet 00 the Medical morning. [facility] 2021-09 Yes [id number] 10mg Take 1 Univers (SINGULAIR) 2-09 tablet by ity of 10 mg 00:00: mouth in [place] tablet 00 the Medical morning. [facility] 2021-09 Yes [id number] 10mg Take 1 [facility] (SINGULAIR) 2-09 tablet by ity of 10 mg 00:00: mouth in [place] tablet 00 the Medical morning. [facility] 2021-09 Yes [id number] 10mg Take 1 [facility] (SINGULAIR) 2-09 tablet by ity of 10 mg 00:00: mouth in [place] tablet 00 the Medical morning. [facility] 2021-09 Yes [id number] 10mg Take 1 [facility] (SINGULAIR) 2-09 tablet by ity of 10 mg 00:00: mouth in [place] tablet 00 the Medical morning. [facility] 2021-09 Yes [id number] 10mg Take 1 [facility] (SINGULAIR) 2-09 tablet by ity of 10 mg 00:00: mouth in [place] tablet 00 the Medical morning. [facility] 2021-09 Yes [id number] 10mg Take 1 [facility] (SINGULAIR) 2-09 tablet by ity of 10 mg 00:00: mouth in [place] tablet 00 the Medical morning. [facility] 2021-09 Yes [id number] 10mg Take 1 [facility] (SINGULAIR) 2-09 tablet by ity of 10 mg 00:00: mouth in [place] tablet 00 the Medical morning. [facility]09 Yes [id number] 10mg Take 1 [facility] (SINGULAIR) 2-09 tablet by ity of 10 mg 00:00: mouth in [place] tablet 00 the Medical morning. [facility]09 Yes [id number] 10mg Take 1 [facility] (SINGULAIR) 2-09 tablet by ity of 10 mg 00:00: mouth in [place] tablet 00 the Medical morning. [facility]-09 Yes [id number] 10mg Take 1 [facility] (SINGULAIR) 2-09 tablet by ity of 10 mg 00:00: mouth in [place] tablet 00 the Medical morning. [facility] 2021-09 Yes [id number] 10mg Take 1 [facility] (SINGULAIR) 2-09 tablet by ity of 10 mg 00:00: mouth in [place] tablet 00 the Medical morning. [facility] 2021-09 Yes [id number] 10mg Take 1 [facility] (SINGULAIR) 2-09 tablet by ity of 10 mg 00:00: mouth in [place] tablet 00 the Medical morning. [facility]09 Yes [id number] 10mg Take 1 [facility] (SINGULAIR) 2-09 tablet by ity of 10 mg 00:00: mouth in [place] tablet 00 the Medical morning. [facility] 2021-09 Yes [id number] 10mg Take 1 [facility] (SINGULAIR) 2-09 tablet by ity of 10 mg 00:00: mouth in [place] tablet 00 the Medical morning. [facility]-09 Yes [id number] 10mg Take 1 [facility] (SINGULAIR) 2-09 tablet by ity of 10 mg 00:00: mouth in [place] tablet 00 the Medical morning. [facility] 2021-09 Yes [id number] 10mg Take 1 [facility] (SINGULAIR) 2-09 tablet by ity of 10 mg 00:00: mouth in [place] tablet 00 the Medical morning. [place] famotidine 2021-09 Yes TAKE 1 Unive rs [...] BY ity of tablet 00:00: MOUTH ONCE 00 DAILY FOR Medical 7 DAYS Branch famotidine 2021-09 Yes TAKE 1 Unive rs 20 mg 2-02 TABLET BY ity of tablet 00:00: MOUTH 00 EVERY 12 Medical HOURS FOR Branch 10 DAYS levoFLOXaci 2021-09 Yes TAKE 1 Univ ers n 500 mg 2-02 TABLET BY ity of tablet 00:00: MOUTH ONCE 00 DAILY FOR Medical 7 DAYS Branch levoFLOXaci 2021-09 Yes TAKE 1 Univ ers n 500 mg 2-02 TABLET BY ity of tablet 00:00: MOUTH ONCE 00 DAILY FOR Medical 7 DAYS Branch levoFLOXaci 2021-09 Yes TAKE 1 Univ ers n 500 mg 2-02 TABLET BY ity of tablet 00:00: MOUTH ONCE 00 DAILY FOR Medical 7 DAYS Branch levoFLOXaci 2021-09 Yes TAKE 1 Univ ers n 500 mg 2-02 TABLET BY ity of tablet 00:00: MOUTH ONCE 00 DAILY FOR Medical 7 DAYS Branch levoFLOXaci 2021-09 Yes TAKE 1 Univ ers n 500 mg 2-02 TABLET BY ity of tablet 00:00: MOUTH ONCE 00 DAILY FOR Medical 7 DAYS Branch levoFLOXaci 2021-09- No TAKE 1 Uni vers n 500 mg 2-02 -24 TABLET BY ity o f tablet 00:00: 00:[place] 00 :[place] DAILY FOR Medical 7 DAYS Branch levoFLOXaci 2021-09- No TAKE 1 Uni vers n 500 mg 2-02 -24 TABLET BY ity o f tablet 00:00: 00:[place] 00 :[place] DAILY FOR Medical 7 DAYS Branch levoFLOXaci 2021-09- No TAKE 1 Uni vers n 500 mg 10-28 TABLET BY ity o f tablet 00:00: 00:00 [place] 00 :[place] DAILY FOR Medical 7 DAYS Branch CYANOCOBALA 2021-09 Yes [id number] INJECT 1ML [facility] MIN 1,000 1-30 INTRAMUSCU ity of mcg/mL 00:00: LARLY [place] injection 00 EVERY TWO Medic al WEEKS Branch CYANOCOBALA 2021-09 Yes [id number] INJECT 1ML [facility] MIN 1,000 1-30 INTRAMUSCU ity of mcg/mL 00:00: LARLY [place] injection 00 EVERY TWO Medic al WEEKS Branch CYANOCOBALA 2021-09 Yes [id number] INJECT 1ML [facility] MIN 1,000 1-30 INTRAMUSCU ity of mcg/mL 00:00: LARLY [place] injection 00 EVERY TWO Medic al WEEKS Branch CYANOCOBALA 2021-09 Yes [id number] INJECT 1ML [facility] MIN 1,000 1-30 INTRAMUSCU ity of mcg/mL 00:00: LARLY [place] injection 00 EVERY TWO Medic al WEEKS Branch CYANOCOBALA 2021-09 Yes [id number] INJECT 1ML [facility] MIN 1,000 1-30 INTRAMUSCU ity of mcg/mL 00:00: LARLY [place] injection 00 EVERY TWO Medic al WEEKS Branch CYANOCOBALA 2021-09 Yes [id number] INJECT 1ML [facility] MIN 1,000 1-30 INTRAMUSCU ity of mcg/mL 00:00: LARLY [place] injection 00 EVERY TWO Medic al WEEKS Branch CYANOCOBALA 2021-09 Yes [id number] INJECT 1ML [facility] MIN 1,000 1-30 INTRAMUSCU ity of mcg/mL 00:00: LARLY [place] injection 00 EVERY TWO Medic al WEEKS Branch CYANOCOBALA 2021-09 Yes [id number] INJECT 1ML [facility] MIN 1,000 1-30 INTRAMUSCU ity of mcg/mL 00:00: LARLY [place] injection 00 EVERY TWO Medic al WEEKS Branch CYANOCOBALA 2021-09 Yes [id number] INJECT 1ML [facility] MIN 1,000 1-30 INTRAMUSCU ity of mcg/mL 00:00: LARLY [place] injection 00 EVERY TWO Medic al WEEKS Branch CYANOCOBALA 2021-09 Yes [id number] INJECT 1ML [facility] MIN 1,000 1-30 INTRAMUSCU ity of mcg/mL 00:00: LARLY [place] injection 00 EVERY TWO Medic al WEEKS Branch CYANOCOBALA 2021-09 Yes [id number] INJECT 1ML [facility] MIN 1,000 1-30 INTRAMUSCU ity of mcg/mL 00:00: LARLY [place] injection 00 EVERY TWO Medic al WEEKS Branch CYANOCOBALA 2021-09 Yes [id number] INJECT 1ML [facility] MIN 1,000 1-30 INTRAMUSCU ity of mcg/mL 00:00: LARLY [place] injection 00 EVERY TWO Medic al WEEKS Branch CYANOCOBALA 2021-09 Yes [id number] INJECT 1ML [facility] MIN 1,000 1-30 INTRAMUSCU ity of mcg/mL 00:00: LARLY [place] injection 00 EVERY TWO Medic al WEEKS Branch CYANOCOBALA 2021-09 Yes [id number] INJECT 1ML [facility] MIN 1,000 1-30 INTRAMUSCU ity of mcg/mL 00:00: LARLY [place] injection 00 EVERY TWO Medic al WEEKS Branch CYANOCOBALA 2021-09 Yes [id number] INJECT 1ML [facility] MIN 1,000 1-30 INTRAMUSCU ity of mcg/mL 00:00: LARLY [place] injection 00 EVERY TWO Medic al WEEKS Branch CYANOCOBALA 2021-09 Yes [id number] INJECT 1ML [facility] MIN 1,000 1-30 INTRAMUSCU ity of mcg/mL 00:00: LARLY [place] injection 00 EVERY TWO Medic al WEEKS Branch CYANOCOBALA 2021-09 Yes [id number] INJECT 1ML [facility] MIN 1,000 1-30 INTRAMUSCU ity of mcg/mL 00:00: LARLY [place] injection 00 EVERY TWO Medic al WEEKS Branch CYANOCOBALA 2021-09 Yes [id number] INJECT 1ML [facility] MIN 1,000 1-30 INTRAMUSCU ity of mcg/mL 00:00: LARLY [place] injection 00 EVERY TWO Medic al WEEKS Branch CYANOCOBALA 2021-09 Yes [id number] INJECT 1ML [facility] MIN 1,000 1-30 INTRAMUSCU ity of mcg/mL 00:00: LARLY [place] injection 00 EVERY TWO Medic al WEEKS Branch CYANOCOBALA 2021-09 Yes [id number] INJECT 1ML [facility] MIN 1,000 1-30 INTRAMUSCU ity of mcg/mL 00:00: LARLY [place] injection 00 EVERY TWO Medic al WEEKS Branch CYANOCOBALA 2021-09 Yes [id number] INJECT 1ML [facility] MIN 1,000 1-30 INTRAMUSCU ity of mcg/mL 00:00: LARLY [place] injection 00 EVERY TWO Medic al WEEKS Branch CYANOCOBALA 2021-09 Yes [id number] INJECT 1ML [facility] MIN 1,000 1-30 INTRAMUSCU ity of mcg/mL 00:00: LARLY [place] injection 00 EVERY TWO Medic al WEEKS Branch ondansetron 2021-09 Yes TAKE 1 Univ ers 4 mg tablet 1-22 TABLET BY ity of 00:00: MOUTH [place] 00 EVERY 12 Medical HOURS Branch NEEDED ondansetron 2021- Yes TAKE 1 Univ ers 4 mg tablet 1-22 TABLET BY ity of 00:00: MOUTH 00 EVERY 12 Medical HOURS Branch NEEDED ondansetron 2021- Yes TAKE 1 Univ ers 4 mg tablet 1-22 TABLET BY ity of 00:00: MOUTH 00 EVERY 12 Medical HOURS Branch NEEDED ondansetron 2021- Yes TAKE 1 Univ ers 4 mg tablet 1-22 TABLET BY ity of 00:00: MOUTH [place] 00 EVERY 12 Medical HOURS Branch NEEDED ondansetron 2021- Yes TAKE 1 Univ ers 4 mg tablet 1-22 TABLET BY ity of 00:00: MOUTH 00 EVERY 12 Medical HOURS Branch NEEDED ondansetron 2021- Yes TAKE 1 Univ ers 4 mg tablet 1-22 TABLET BY ity of 00:00: MOUTH [place] 00 EVERY 12 Medical HOURS Branch NEEDED ondansetron 2- Yes TAKE 1 Univ ers 4 mg tablet 1-22 TABLET BY ity of 00:00: MOUTH [place] 00 EVERY 12 Medical HOURS Branch NEEDED ondansetron 2- Yes TAKE 1 Univ ers 4 mg tablet 1-22 TABLET BY ity of 00:00: MOUTH [place] 00 EVERY 12 Medical HOURS Branch NEEDED ondansetron 2- Yes TAKE 1 Univ ers 4 mg tablet 1-22 TABLET BY ity of 00:00: MOUTH [place] 00 EVERY 12 Medical HOURS Branch NEEDED ondansetron 2- Yes TAKE 1 Univ ers 4 mg tablet 1-22 TABLET BY ity of 00:00: MOUTH [place] 00 EVERY 12 Medical HOURS Branch NEEDED ondansetron 2- Yes TAKE 1 Univ ers 4 mg tablet 1-22 TABLET BY ity of 00:00: MOUTH [place] 00 EVERY 12 Medical HOURS Branch NEEDED ondansetron 2021- Yes TAKE 1 Univ ers 4 mg tablet 1-22 TABLET BY ity of 00:00: MOUTH [place] 00 EVERY 12 Medical HOURS Branch NEEDED ondansetron 2021- Yes TAKE 1 Univ ers 4 mg tablet 1-22 TABLET BY ity of 00:00: MOUTH [place] 00 EVERY 12 Medical HOURS Branch NEEDED naproxen 2021- Yes 500mg Take 500 Univ ers 500 mg 1-18 mg by ity of tablet 00:00: mouth in [place] 00 the Medical morning Branch and 500 mg in the evening. Take with meals. naproxen 2021- Yes 500mg Take 500 Univ ers 500 mg 1-18 mg by ity of tablet 00:00: mouth in [place] 00 the Medical morning Branch and 500 mg in the evening. Take with meals. naproxen 2021- Yes 500mg Take 500 Univ ers 500 mg 1-18 mg by ity of tablet 00:00: mouth in [place] 00 the Medical morning Branch and 500 mg in the evening. Take with meals. naproxen 2021-1 Yes 500mg Take 500 Univ ers 500 mg 1-18 mg by ity of tablet 00:00: mouth in [place] 00 the Medical morning Branch and 500 mg in the evening. Take with meals. naproxen 2021-1 Yes 500mg Take 500 Univ ers 500 mg 1-18 mg by ity of tablet 00:00: mouth in [place] 00 the Medical morning Branch and 500 mg in the evening. Take with meals. naproxen 2021-1 Yes 500mg Take 500 Univ ers 500 mg 1-18 mg by ity of tablet 00:00: mouth in [place] 00 the Medical morning Branch and 500 mg in the evening. Take with meals. naproxen 2021-1 Yes 500mg Take 500 Univ ers 500 mg 1-18 mg by ity of tablet 00:00: mouth in [place] 00 the Medical morning Branch and 500 mg in the evening. Take with meals. naproxen 2021-3- No 500mg Take 500 Uni vers 500 mg 1-18 01-23 mg by ity of tablet 00:00: 00:00 mouth in [place] 00 :00 the Medical morning Branch and 500 mg in the evening. Take with meals. naproxen 2021-1 2023- No 500mg Take 500 Uni vers 500 mg 1-18 01-23 mg by ity of tablet 00:00: 00:00 mouth in [place] 00 :00 the Medical morning Branch and 500 mg in the evening. Take with meals. naproxen 2021-09 No 500mg Take 500 Uni vers 500 mg 1-18 01-23 mg by ity of tablet 00:00: 00:00 mouth in [place] 00 :00 the Medical morning Branch and 500 mg in the evening. Take with meals. levothyroxi 2021-09 Yes [id number] 50ug Take 1 [facility] ne 50 mcg 1-03 tablet by ity o f tablet 00:00: mouth [place] 00 every Medical morning. Branch levothyroxi 2021-09 Yes [id number] 50ug Take 1 [facility] ne 50 mcg 1-03 tablet by ity o f tablet 00:00: mouth [place] 00 every Medical morning. Branch levothyroxi 2021-09 Yes [id number] 50ug Take 1 [facility] ne 50 mcg 1-03 tablet by ity o f tablet 00:00: mouth [place] 00 every Medical morning. Branch levothyroxi 2021-09 Yes [id number] 50ug Take 1 [facility] ne 50 mcg 1-03 tablet by ity o f tablet 00:00: mouth [place] 00 every Medical morning. Branch levothyroxi 2021-09 Yes [id number] 50ug Take 1 [facility] ne 50 mcg 1-03 tablet by ity o f tablet 00:00: mouth [place] 00 every Medical morning. Branch levothyroxi 2021-09 Yes [id number] 50ug Take 1 [facility] ne 50 mcg 1-03 tablet by ity o f tablet 00:00: mouth [place] 00 every Medical morning. Branch levothyroxi 2021-09 Yes [id number] 50ug Take 1 [facility] ne 50 mcg 1-03 tablet by ity o f tablet 00:00: mouth [place] 00 every Medical morning. Branch levothyroxi 2021-09 Yes [id number] 50ug Take 1 [facility] ne 50 mcg 1-03 tablet by ity o f tablet 00:00: mouth [place] 00 every Medical morning. Branch levothyroxi 2021-09 Yes [id number] 50ug Take 1 [facility] ne 50 mcg 1-03 tablet by ity o f tablet 00:00: mouth [place] 00 every Medical morning. Branch levothyroxi 2021-09 Yes [id number] 50ug Take 1 [facility] ne 50 mcg 1-03 tablet by ity o f tablet 00:00: mouth [place] 00 every Medical morning. Branch levothyroxi 2021-09 Yes [id number] 50ug Take 1 [facility] ne 50 mcg 1-03 tablet by ity o f tablet 00:00: mouth [place] 00 every Medical morning. Branch levothyroxi 2021-09 Yes [id number] 50ug Take 1 [facility] ne 50 mcg 1-03 tablet by ity o f tablet 00:00: mouth [place] 00 every Medical morning. Branch levothyroxi 2021-09 Yes [id number] 50ug Take 1 [facility] ne 50 mcg 1-03 tablet by ity o f tablet 00:00: mouth [place] 00 every Medical morning. Branch levothyroxi 2021-09 Yes [id number] 50ug Take 1 [facility] ne 50 mcg 1-03 tablet by ity o f tablet 00:00: mouth [place] 00 every Medical morning. Branch levothyroxi 2021-09 Yes [id number] 50ug Take 1 [facility] ne 50 mcg 1-03 tablet by ity o f tablet 00:00: mouth [place] 00 every Medical morning. Branch levothyroxi 2021-09 Yes [id number] 50ug Take 1 [facility] ne 50 mcg 1-03 tablet by ity o f tablet 00:00: mouth [place] 00 every Medical morning. Branch levothyroxi 2021-09 Yes [id number] 50ug Take 1 [facility] ne 50 mcg 1-03 tablet by ity o f tablet 00:00: mouth [place] 00 every Medical morning. Branch levothyroxi 2021-09 Yes [id number] 50ug Take 1 [facility] ne 50 mcg 1-03 tablet by ity o f tablet 00:00: mouth [place] 00 every Medical morning. Branch levothyroxi 2021-09 Yes [id number] 50ug Take 1 [facility] ne 50 mcg 1-03 tablet by ity o f tablet 00:00: mouth [place] 00 every Medical morning. Branch levothyroxi 2021-09 Yes [id number] 50ug Take 1 [facility] ne 50 mcg 1-03 tablet by ity o f tablet 00:00: mouth [place] 00 every Medical morning. Branch levothyroxi 2021-09 Yes [id number] 50ug Take 1 [facility] ne 50 mcg 1-03 tablet by ity o f tablet 00:00: mouth [place] 00 every Medical morning. Branch levothyroxi 2021-09 Yes [id number] 50ug Take 1 [facility] ne 50 mcg 1-03 tablet by ity o f tablet 00:00: mouth [place] 00 every Medical morning. Branch levothyroxi 2021-09 Yes [id number] 50ug Take 1 [facility] ne 50 mcg 1-03 tablet by ity o f tablet 00:00: mouth [place] 00 every Medical morning. Branch levothyroxi 2021-09 Yes [id number] 50ug Take 1 [facility] ne 50 mcg 1-03 tablet by ity o f tablet 00:00: mouth [place] 00 every Medical morning. Branch levothyroxi 2021-09 Yes [id number] 50ug Take 1 [facility] ne 50 mcg 1-03 tablet by ity o f tablet 00:00: mouth [place] 00 every Medical morning. Branch levothyroxi 2021-09 Yes [id number] 50ug Take 1 [facility] ne 50 mcg 1-03 tablet by ity o f tablet 00:00: mouth [place] 00 every Medical morning. Branch levothyroxi 2021-09 Yes [id number] 50ug Take 1 [facility] ne 50 mcg 1-03 tablet by ity o f tablet 00:00: mouth [place] 00 every Medical morning. Branch levothyroxi 2021-09 Yes [id number] 50ug Take 1 [facility] ne 50 mcg 1-03 tablet by ity o f tablet 00:00: mouth [place] 00 every Medical morning. Branch levothyroxi 2021-09 Yes [id number] 50ug Take 1 [facility] ne 50 mcg 1-03 tablet by ity o f tablet 00:00: mouth [place] 00 every Medical morning. [place] DOCUSATE 2021-09 Yes Take by [facility] SODIUM 1-01 mouth. ity of (COLACE 08:06: [place] ORAL) 37 [facility] DOCUSATE 2021-09 Yes Take by [facility] SODIUM 1-01 mouth. ity of (COLACE 08:06: [place] ORAL) 37 [facility] DOCUSATE 2021-09 Yes Take by [facility] SODIUM 1-01 mouth. ity of (COLACE 08:06: [place] ORAL) 37 [facility] DOCUSATE 2021-09 Yes Take by [facility] SODIUM 1-01 mouth. ity of (COLACE 08:06: [place] ORAL) 37 [facility] DOCUSATE 2021-09 Yes Take by Univer s [...] Branch DOCUSATE 2021-09 Yes Take [facility] SODI[facility]-01 mouth. ity of (COLACE 08:06: [place] ORAL) 37 Medical Branch DOCUSATE 2021-09 Yes Take by [facility] SODIUM 1-01 mouth. ity of (COLACE 08:06: [place] ORAL) 37 Medical Branch DOCUSATE 2021-09 Yes Take by [facility] SODIUM 1-01 mouth. ity of (COLACE 08:06: [place] ORAL) 37 Medical Branch DOCUSATE 2021-09 Yes Take by [facility] SODIUM 1- mouth. ity of (COLACE 08:06: [place] ORAL) 37 Medical Branch DOCUSATE 2021-09 Yes Take by [facility] SODIUM 1- mouth. ity of (COLACE 08:06: [place] ORAL) 37 Medical Branch DOCUSATE 2021-09 Yes Take by [facility] SODIUM 1- mouth. ity of (COLACE 08:06: [place] ORAL) 37 Medical Branch DOCUSATE 2021-09 Yes Take by [facility] SODIUM 1- mouth. ity of (COLACE 08:06: [place] ORAL) Medical Branch diltiazem 2021-09 Yes [id number] 120mg Take 1 U nivers 120 mg 24 1- capsule by ity of hr capsule 00:00: mouth in [place] 00 the Medical morning Branch and 1 capsule in the evening. fluticasone 2021-09 Yes [id number] 2{puff} Inhale 2 [facility] propionate 1-01 Puffs ity of (FLOVENT 00:00: every 12 [place] HFA) 110 00 (twelve) Medical mcg/actuati hours. Branch on inhaler Rinse mouth after each use. levothyroxi 2021-09 Yes [id number] 50ug Take 1 [facility] ne 50 mcg 1-01 tablet by ity o f tablet 00:00: mouth [place] 00 every Medical morning. Branch metformin 2021-09 Yes [id number] 500mg Take 1 U nivers ER 500 mg 1-01 tablet by ity o f 24 hr 00:00: mouth [place] tablet 00 daily with Medical breakfast. Branch pantoprazol 2021-09 Yes [id number] 40mg Take 1 [facility] e 40 mg EC - tablet by ity of tablet 00:00: mouth in [place] 00 the Medical morning. Branch pregabalin 2021-09 Yes [id number] 150mg Take 1 [facility] 150 mg 1-01 capsule by ity of capsule 00:00: mouth in [place] 00 the Medical morning Branch and 1 capsule at noon and 1 capsule in the evening. rosuvastati 2021-09 Yes [id number] 10mg Take 1 [facility] n 10 mg 1-01 tablet by ity of tablet 00:00: mouth at [place] 00 bedtime. Medical Branch SUMAtriptan 2021-09 Yes [id number] 50mg Take 1 [facility] 50 mg 1-01 tablet by ity of tablet 00:00: mouth as [place] 00 needed for Medical Migraine. Branch diltiazem 2021-09 Yes [id number] 120mg Take 1 U nivers 120 mg 24 1-01 capsule by ity of hr capsule 00:00: mouth in [place] 00 the Medical morning Branch and 1 capsule in the evening. fluticasone 2021-09 Yes [id number] 2{puff} Inhale 2 [facility] propionate 1-01 Puffs ity of (FLOVENT 00:00: every 12 [place] HFA) 110 00 (twelve) Medical mcg/actuati hours. Branch on inhaler Rinse mouth after each use. levothyroxi 2021-09 Yes [id number] 50ug Take 1 [facility] ne 50 mcg 1-01 tablet by ity o f tablet 00:00: mouth [place] 00 every Medical morning. Branch metformin 2021-09 Yes [id number] 500mg Take 1 U nivers ER 500 mg 1-01 tablet by ity o f 24 hr 00:00: mouth [place] tablet 00 daily with Medical breakfast. Branch pantoprazol 2021-09 Yes [id number] 40mg Take 1 [facility] e 40 mg EC 1-01 tablet by ity of tablet 00:00: mouth in [place] 00 the Medical morning. Branch pregabalin 2021-09 Yes [id number] 150mg Take 1 [facility] 150 mg 1-01 capsule by ity of capsule 00:00: mouth in [place] 00 the Medical morning Branch and 1 capsule at noon and 1 capsule in the evening. rosuvastati 2021-09 Yes [id number] 10mg Take 1 [facility] n 10 mg 1-01 tablet by ity of tablet 00:00: mouth at [place] 00 bedtime. Medical Branch SUMAtriptan 2021-09 Yes [id number] 50mg Take 1 [facility] 50 mg 1-01 tablet by ity of tablet 00:00: mouth as [place] 00 needed for Medical Migraine. Branch diltiazem 2021-09 Yes [id number] 120mg Take 1 U nivers 120 mg 24 1-01 capsule by ity of hr capsule 00:00: mouth in [place] 00 the Medical morning Branch and 1 capsule in the evening. fluticasone 2021-09 Yes [id number] 2{puff} Inhale 2 [facility] propionate 1-01 Puffs ity of (FLOVENT 00:00: every 12 [place] HFA) 110 00 (twelve) Medical mcg/actuati hours. Branch on inhaler Rinse mouth after each use. metformin 2021-09 Yes [id number] 500mg Take 1 U nivers ER 500 mg 1-01 tablet by ity o f 24 hr 00:00: mouth [place] tablet 00 daily with Medical breakfast. Branch pantoprazol 2021-09 Yes [id number] 40mg Take 1 [facility] e 40 mg EC 1-01 tablet by ity of tablet 00:00: mouth in [place] 00 the Medical morning. Branch pregabalin 2021-09 Yes [id number] 150mg Take 1 [facility] 150 mg 1-01 capsule by ity of capsule 00:00: mouth in [place] 00 the Medical morning Branch and 1 capsule at noon and 1 capsule in the evening. rosuvastati 2021-09 Yes [id number] 10mg Take 1 [facility] n 10 mg 1-01 tablet by ity of tablet 00:00: mouth at [place] 00 bedtime. Medical Branch SUMAtriptan 2021-09 Yes [id number] 50mg Take 1 [facility] 50 mg 1-01 tablet by ity of tablet 00:00: mouth as [place] 00 needed for Medical Migraine. Branch diltiazem 2021-09 Yes [id number] 120mg Take 1 U nivers 120 mg 24 1-01 capsule by ity of hr capsule 00:00: mouth in [place] 00 the Medical morning Branch and 1 capsule in the evening. fluticasone 2021-09 Yes [id number] 2{puff} Inhale 2 [facility] propionate 1-01 Puffs ity of (FLOVENT 00:00: every 12 [place] HFA) 110 00 (twelve) Medical mcg/actuati hours. Branch on inhaler Rinse mouth after each use. metformin 2021-09 Yes [id number] 500mg Take 1 U nivers ER 500 mg 1-01 tablet by ity o f 24 hr 00:00: mouth [place] tablet 00 daily with Medical breakfast. Branch pantoprazol 2021-09 Yes [id number] 40mg Take 1 [facility] e 40 mg EC 1-01 tablet by ity of tablet 00:00: mouth in [place] 00 the Medical morning. Branch pregabalin 2021-09 Yes [id number] 150mg Take 1 [facility] 150 mg 1-01 capsule by ity of capsule 00:00: mouth in [place] 00 the Medical morning Branch and 1 capsule at noon and 1 capsule in the evening. rosuvastati 2021-09 Yes [id number] 10mg Take 1 [facility] n 10 mg 1-01 tablet by ity of tablet 00:00: mouth at [place] [id number] bedtime. Medical Branch SUMAtriptan 2021-09 Yes [id number] 50mg Take 1 [facility] 50 mg 1-01 tablet by ity of tablet 00:00: mouth as [place] 00 needed for Medical Migraine. Branch diltiazem 2021-09 Yes [id number] 120mg Take 1 U nivers 120 mg 24 1-01 capsule by ity of hr capsule 00:00: mouth in [facility] as 00 the Medical morning Branch and 1 capsule in the evening. fluticasone 2021-09 Yes [id number] 2{puff} Inhale 2 [facility] propionate 1-01 Puffs ity of (FLOVENT 00:00: every 12 [place] HFA) 110 00 (twelve) Medical mcg/actuati hours. Branch on inhaler Rinse mouth after each use. metformin 2021-09 Yes [id number] 500mg Take 1 U nivers ER 500 mg 1-01 tablet by ity o f 24 hr 00:00: mouth [place] tablet 00 daily with Medical breakfast. Branch pantoprazol 2021-09 Yes [id number] 40mg Take 1 [facility] e 40 mg EC 1-01 tablet by ity of tablet 00:00: mouth in [place] 00 the Medical morning. Branch pregabalin 2021-09 Yes [id number] 150mg Take 1 [facility] 150 mg 1-01 capsule by ity of capsule 00:00: mouth in [place] 00 the Medical morning Branch and 1 capsule at noon and 1 capsule in the evening. rosuvastati 2021-09 Yes [id number] 10mg Take 1 [facility] n 10 mg 1-01 tablet by ity of tablet 00:00: mouth at [place] 00 bedtime. Medical Branch SUMAtriptan 2021-09 Yes [id number] 50mg Take 1 [facility] 50 mg 1-01 tablet by ity of tablet 00:00: mouth as [place] 00 needed for Medical Migraine. Branch diltiazem 2021-09 Yes [id number] 120mg Take 1 U nivers 120 mg 24 1-01 capsule by ity of hr capsule 00:00: mouth in [place] 00 the Medical morning Branch and 1 capsule in the evening. fluticasone 2021-09 Yes [id number] 2{puff} Inhale 2 [facility] propionate 1-01 Puffs ity of (FLOVENT 00:00: every 12 [place] HFA) 110 00 (twelve) Medical mcg/actuati hours. Branch on inhaler Rinse mouth after each use. metformin 2021-09 Yes [id number] 500mg Take 1 U nivers ER 500 mg 1-01 tablet by ity o f 24 hr 00:00: mouth [place] tablet 00 daily with Medical breakfast. Branch pantoprazol 2021-09 Yes [id number] 40mg Take 1 [facility] e 40 mg EC 1-01 tablet by ity of tablet 00:00: mouth in [place] 00 the Medical morning. Branch pregabalin 2021-09 Yes [id number] 150mg Take 1 [facility] 150 mg 1-01 capsule by ity of capsule 00:00: mouth in [place] 00 the Medical morning Branch and 1 capsule at noon and 1 capsule in the evening. rosuvastati 2021-09 Yes [id number] 10mg Take 1 [facility] n 10 mg 1-01 tablet by ity of tablet 00:00: mouth at [place] [address] bedtime. Medical Branch SUMAtriptan 2021-09 Yes [id number] 50mg Take 1 [facility] 50 mg 1-01 tablet by ity of tablet 00:00: mouth as [place] 00 needed for Medical Migraine. Branch diltiazem 2021-09 Yes [id number] 120mg Take 1 [facility] nivers 120 mg 24 1-01 capsule by ity of hr capsule 00:00: mouth in [place] as 00 the Medical morning Branch and 1 capsule in the evening. fluticasone 2021-09 Yes [id number] 2{puff} Inhale 2 [facility] propionate 1-01 Puffs ity of (FLOVENT 00:00: every 12 [facility]) 110 00 (twelve) Medical mcg/actuati hours. Branch on inhaler Rinse mouth after each use. metformin 2021-09 Yes [id number] 500mg Take 1 U nivers ER 500 mg 1-01 tablet by ity o f 24 hr 00:00: mouth [place] tablet 00 daily with Medical breakfast. Branch pantoprazol 2021-09 Yes [id number] 40mg Take 1 [facility] e 40 mg EC 1-01 tablet by ity of tablet 00:00: mouth in [place] 00 the Medical morning. Branch pregabalin 2021-09 Yes [id number] 150mg Take 1 [facility] 150 mg 1-01 capsule by ity of capsule 00:00: mouth in [place] 00 the Medical morning Branch and 1 capsule at noon and 1 capsule in the evening. rosuvastati 2021-09 Yes [id number] 10mg Take 1 [facility] n 10 mg 1-01 tablet by ity of tablet 00:00: mouth at [place] [address] bedtime. Medical Branch SUMAtriptan 2021-09 Yes [id number] 50mg Take 1 [facility] 50 mg 1-01 tablet by ity of tablet 00:00: mouth as [place] 00 needed for Medical Migraine. Branch diltiazem 2021-09 Yes [id number] 120mg Take 1 [facility] nivers 120 mg 24 1-01 capsule by ity of hr capsule 00:00: mouth in [facility] as 00 the Medical morning Branch and 1 capsule in the evening. fluticasone 2021-09 Yes [id number] 2{puff} Inhale 2 [facility] propionate 1-01 Puffs ity of (FLOVENT 00:00: every 12 [facility]) 110 00 (twelve) Medical mcg/actuati hours. Branch on inhaler Rinse mouth after each use. metformin 2021-09 Yes [id number] 500mg Take 1 U nivers ER 500 mg 1-01 tablet by ity o f 24 hr 00:00: mouth [place] tablet 00 daily with Medical breakfast. Branch pantoprazol 2021-09 Yes [id number] 40mg Take 1 [facility] e 40 mg EC 1-01 tablet by ity of tablet 00:00: mouth in [place] 00 the Medical morning. Branch pregabalin 2021-09 Yes [id number] 150mg Take 1 [facility] 150 mg 1-01 capsule by ity of capsule 00:00: mouth in [place] 00 the Medical morning Branch and 1 capsule at noon and 1 capsule in the evening. rosuvastati 2021-09 Yes [id number] 10mg Take 1 [facility] n 10 mg 1-01 tablet by ity of tablet 00:00: mouth at [place] [address] bedtime. Medical Branch SUMAtriptan 2021-09 Yes [id number] 50mg Take 1 [facility] 50 mg 1-01 tablet by ity of tablet 00:00: mouth as [place] 00 needed for Medical Migraine. Branch diltiazem 2021-09 Yes [id number] 120mg Take 1 [facility] nivers 120 mg 24 1-01 capsule by ity of hr capsule 00:00: mouth in [place] as 00 the Medical morning Branch and 1 capsule in the evening. fluticasone 2021-09 Yes [id number] 2{puff} Inhale 2 [facility] propionate 1-01 Puffs ity of (FLOVENT 00:00: every 12 [place] [facility]) 110 00 (twelve) Medical mcg/actuati hours. Branch on inhaler Rinse mouth after each use. metformin 2021-09 Yes [id number] 500mg Take 1 U nivers ER 500 mg 1-01 tablet by ity o f 24 hr 00:00: mouth [place] tablet 00 daily with Medical breakfast. Branch pantoprazol 2021-09 Yes [id number] 40mg Take 1 [facility] e 40 mg EC 1-01 tablet by ity of tablet 00:00: mouth in [place] 00 the Medical morning. Branch pregabalin 2021-09 Yes [id number] 150mg Take 1 [facility] 150 mg 1-01 capsule by ity of capsule 00:00: mouth in [place] 00 the Medical morning Branch and 1 capsule at noon and 1 capsule in the evening. rosuvastati 2021-09 Yes [id number] 10mg Take 1 [facility] n 10 mg 1-01 tablet by ity of tablet 00:00: mouth at [place] [address] bedtime. Medical Branch SUMAtriptan 2021-09 Yes [id number] 50mg Take 1 [facility] 50 mg 1-01 tablet by ity of tablet 00:00: mouth as [place] 00 needed for Medical Migraine. Branch diltiazem 2021-09 Yes [id number] 120mg Take 1 [facility] nivers 120 mg 24 1-01 capsule by ity of hr capsule 00:00: mouth in [facility] as 00 the Medical morning Branch and 1 capsule in the evening. fluticasone 2021-09 Yes [id number] 2{puff} Inhale 2 [facility] propionate 1-01 Puffs ity of (FLOVENT 00:00: every 12 [place] HF) 110 00 (twelve) Medical mcg/actuati hours. Branch on inhaler Rinse mouth after each use. metformin 2021-09 Yes [id number] 500mg Take 1 U nivers ER 500 mg 1-01 tablet by ity o f 24 hr 00:00: mouth [place] tablet 00 daily with Medical breakfast. Branch pantoprazol 2021-09 Yes [id number] 40mg Take 1 [facility] e 40 mg EC 1-01 tablet by ity of tablet 00:00: mouth in [place] 00 the Medical morning. Branch pregabalin 2021-09 Yes [id number] 150mg Take 1 [facility] 150 mg 1-01 capsule by ity of capsule 00:00: mouth in [place] 00 the Medical morning Branch and 1 capsule at noon and 1 capsule in the evening. rosuvastati 2021-09 Yes [id number] 10mg Take 1 [facility] n 10 mg 1-01 tablet by ity of tablet 00:00: mouth at [place] [address] bedtime. Medical Branch SUMAtriptan 2021-09 Yes [id number] 50mg Take 1 [facility] 50 mg 1-01 tablet by ity of tablet 00:00: mouth as [place] 00 needed for Medical Migraine. Branch diltiazem 2021-09 Yes [id number] 120mg Take 1 [facility] nivers 120 mg 24 1-01 capsule by ity of hr capsule 00:00: mouth in [facility] as 00 the Medical morning Branch and 1 capsule in the evening. fluticasone 2021-09 Yes [id number] 2{puff} Inhale 2 [facility] propionate 1-01 Puffs ity of (FLOVENT 00:00: every 12 [place] HF) 110 00 (twelve) Medical mcg/actuati hours. Branch on inhaler Rinse mouth after each use. metformin 2021-09 Yes [id number] 500mg Take 1 U nivers ER 500 mg 1-01 tablet by ity o f 24 hr 00:00: mouth [place] tablet 00 daily with Medical breakfast. Branch pantoprazol 2021-09 Yes [id number] 40mg Take 1 [facility] e 40 mg EC 1-01 tablet by ity of tablet 00:00: mouth in [place] 00 the Medical morning. Branch pregabalin 2021-09 Yes [id number] 150mg Take 1 [facility] 150 mg 1-01 capsule by ity of capsule 00:00: mouth in [place] 00 the Medical morning Branch and 1 capsule at noon and 1 capsule in the evening. rosuvastati 2021-09 Yes [id number] 10mg Take 1 [facility] n 10 mg 1-01 tablet by ity of tablet 00:00: mouth at [place] 00 bedtime. Medical Branch SUMAtriptan 2021-09 Yes [id number] 50mg Take 1 [facility] 50 mg 1-01 tablet by ity of tablet 00:00: mouth as [place] 00 needed for Medical Migraine. Branch diltiazem 2021-09 Yes [id number] 120mg Take 1 [facility] nivers 120 mg 24 1-01 capsule by ity of hr capsule 00:00: mouth in [place] as 00 the Medical morning Branch and 1 capsule in the evening. fluticasone 2021-09 Yes [id number] 2{puff} Inhale 2 [facility] propionate 1-01 Puffs ity of (FLOVENT 00:00: every 12 [place] [facility]FA) 110 00 (twelve) Medical mcg/actuati hours. Branch on inhaler Rinse mouth after each use. metformin 2021-09 Yes [id number] 500mg Take 1 U nivers ER 500 mg 1-01 tablet by ity o f 24 hr 00:00: mouth [place] tablet 00 daily with Medical breakfast. Branch pantoprazol 2021-09 Yes [id number] 40mg Take 1 [facility] e 40 mg EC 1-01 tablet by ity of tablet 00:00: mouth in [place] 00 the Medical morning. Branch pregabalin 2021-09 Yes [id number] 150mg Take 1 [facility] 150 mg 1-01 capsule by ity of capsule 00:00: mouth in [place] 00 the Medical morning Branch and 1 capsule at noon and 1 capsule in the evening. rosuvastati 2021-09 Yes [id number] 10mg Take 1 [facility] n 10 mg 1-01 tablet by ity of tablet 00:00: mouth at [place] [address] bedtime. Medical Branch SUMAtriptan 2021-09 Yes [id number] 50mg Take 1 [facility] 50 mg 1-01 tablet by ity of tablet 00:00: mouth as [place] 00 needed for Medical Migraine. Branch diltiazem 2021-09 Yes [id number] 120mg Take 1 [facility] nivers 120 mg 24 1-01 capsule by ity of hr capsule 00:00: mouth in [place] as 00 the Medical morning Branch and 1 capsule in the evening. fluticasone 2021-09 Yes [id number] 2{puff} Inhale 2 [facility] propionate 1-01 Puffs ity of (FLOVENT 00:00: every 12 [facility]) 110 00 (twelve) Medical mcg/actuati hours. Branch on inhaler Rinse mouth after each use. metformin 2021-09 Yes [id number] 500mg Take 1 U nivers ER 500 mg 1-01 tablet by ity o f 24 hr 00:00: mouth [place] tablet 00 daily with Medical breakfast. Branch pantoprazol 2021-09 Yes [id number] 40mg Take 1 [facility] e 40 mg EC 1-01 tablet by ity of tablet 00:00: mouth in [place] 00 the Medical morning. Branch pregabalin 2021-09 Yes [id number] 150mg Take 1 [facility] 150 mg 1-01 capsule by ity of capsule 00:00: mouth in [place] 00 the Medical morning Branch and 1 capsule at noon and 1 capsule in the evening. rosuvastati 2021-09 Yes [id number] 10mg Take 1 [facility] n 10 mg 1-01 tablet by ity of tablet 00:00: mouth at [place] 00 bedtime. Medical Branch SUMAtriptan 2021-09 Yes [id number] 50mg Take 1 [facility] 50 mg 1-01 tablet by ity of tablet 00:00: mouth as [place] 00 needed for Medical Migraine. Branch diltiazem 2021-09 Yes [id number] 120mg Take 1 U nivers 120 mg 24 1-01 capsule by ity of hr capsule 00:00: mouth in [facility] as 00 the Medical morning Branch and 1 capsule in the evening. fluticasone 2021-09 Yes [id number] 2{puff} Inhale 2 [facility] propionate 1-01 Puffs ity of (FLOVENT 00:00: every 12 [facility]) 110 00 (twelve) Medical mcg/actuati hours. Branch on inhaler Rinse mouth after each use. metformin 2021-09 Yes [id number] 500mg Take 1 U nivers ER 500 mg 1-01 tablet by ity o f 24 hr 00:00: mouth [place] tablet 00 daily with Medical breakfast. Branch pantoprazol 2021-09 Yes [id number] 40mg Take 1 [facility] e 40 mg EC 1-01 tablet by ity of tablet 00:00: mouth in [place] 00 the Medical morning. Branch rosuvastati 2021-09 Yes [id number] 10mg Take 1 [facility] n 10 mg 1-01 tablet by ity of tablet 00:00: mouth at [place] 00 bedtime. Medical Branch SUMAtriptan 2021-09 Yes [id number] 50mg Take 1 [facility] 50 mg 1-01 tablet by ity of tablet 00:00: mouth as [place] 00 needed for Medical Migraine. Branch diltiazem 2021-09 Yes [id number] 120mg Take 1 U nivers 120 mg 24 1-01 capsule by ity of hr capsule 00:00: mouth in [place] as 00 the Medical morning Branch and 1 capsule in the evening. fluticasone 2021-09 Yes [id number] 2{puff} Inhale 2 [facility] propionate 1-01 Puffs ity of (FLOVENT 00:00: every 12 [place] [facility]FA) 110 00 (twelve) Medical mcg/actuati hours. Branch on inhaler Rinse mouth after each use. metformin 2021-09 Yes [id number] 500mg Take 1 U nivers ER 500 mg 1-01 tablet by ity o f 24 hr 00:00: mouth [place] tablet 00 daily with Medical breakfast. Branch pantoprazol 2021-09 Yes [id number] 40mg Take 1 [facility] e 40 mg EC 1-01 tablet by ity of tablet 00:00: mouth in [place] 00 the Medical morning. Branch rosuvastati 2021-09 Yes [id number] 10mg Take 1 [facility] n 10 mg 1-01 tablet by ity of tablet 00:00: mouth at [place] 00 bedtime. Medical Branch SUMAtriptan 2021-09 Yes [id number] 50mg Take 1 [facility] 50 mg 1-01 tablet by ity of tablet 00:00: mouth as [place] 00 needed for Medical Migraine. Branch diltiazem 2021-09 Yes [id number] 120mg Take 1 U nivers 120 mg 24 1-01 capsule by ity of hr capsule 00:00: mouth in [place] as 00 the Medical morning Branch and 1 capsule in the evening. fluticasone 2021-09 Yes [id number] 2{puff} Inhale 2 [facility] propionate 1-01 Puffs ity of (FLOVENT 00:00: every 12 [place] HFA) 110 00 (twelve) Medical mcg/actuati hours. Branch on inhaler Rinse mouth after each use. metformin 2021-09 Yes [id number] 500mg Take 1 U nivers ER 500 mg 1-01 tablet by ity o f 24 hr 00:00: mouth [place] tablet 00 daily with Medical breakfast. Branch pantoprazol 2021-09 Yes [id number] 40mg Take 1 [facility] e 40 mg EC 1-01 tablet by ity of tablet 00:00: mouth in [place] 00 the Medical morning. Branch rosuvastati 2021-09 Yes [id number] 10mg Take 1 [facility] n 10 mg 1-01 tablet by ity of tablet 00:00: mouth at [place] 00 bedtime. Medical Branch SUMAtriptan 2021-09 Yes [id number] 50mg Take 1 [facility] 50 mg 1-01 tablet by ity of tablet 00:00: mouth as [place] 00 needed for Medical Migraine. Branch diltiazem 2021-09 Yes [id number] 120mg Take 1 U nivers 120 mg 24 1-01 capsule by ity of hr capsule 00:00: mouth in [place] as 00 the Medical morning Branch and 1 capsule in the evening. fluticasone 2021-09 Yes [id number] 2{puff} Inhale 2 [facility] propionate 1-01 Puffs ity of (FLOVENT 00:00: every 12 [place] [facility]) 110 00 (twelve) Medical mcg/actuati hours. Branch on inhaler Rinse mouth after each use. metformin 2021-09 Yes [id number] 500mg Take 1 U nivers ER 500 mg 1-01 tablet by ity o f 24 hr 00:00: mouth [place] tablet 00 daily with Medical breakfast. Branch pantoprazol 2021-09 Yes [id number] 40mg Take 1 [facility] e 40 mg EC 1-01 tablet by ity of tablet 00:00: mouth in [place] 00 the Medical morning. Branch rosuvastati 2021-09 Yes [id number] 10mg Take 1 [facility] n 10 mg 1-01 tablet by ity of tablet 00:00: mouth at [place] [address] bedtime. Medical Branch SUMAtriptan 2021-09 Yes [id number] 50mg Take 1 [facility] 50 mg 1-01 tablet by ity of tablet 00:00: mouth as [place] 00 needed for Medical Migraine. Branch diltiazem 2021-09 Yes [id number] 120mg Take 1 U nivers 120 mg 24 1-01 capsule by ity of hr capsule 00:00: mouth in [place] as 00 the Medical morning Branch and 1 capsule in the evening. fluticasone 2021-09 Yes [id number] 2{puff} Inhale 2 [facility] propionate 1-01 Puffs ity of (FLOVENT 00:00: every 12 [place] HFA) 110 00 (twelve) Medical mcg/actuati hours. Branch on inhaler Rinse mouth after each use. metformin 2021-09 Yes [id number] 500mg Take 1 U nivers ER 500 mg 1-01 tablet by ity o f 24 hr 00:00: mouth [place] tablet 00 daily with Medical breakfast. Branch pantoprazol 2021-09 Yes [id number] 40mg Take 1 [facility] e 40 mg EC 1-01 tablet by ity of tablet 00:00: mouth in [place] 00 the Medical morning. Branch rosuvastati 2021-09 Yes [id number] 10mg Take 1 [facility] n 10 mg 1-01 tablet by ity of tablet 00:00: mouth at [place] 00 bedtime. Medical Branch SUMAtriptan 2021-09 Yes [id number] 50mg Take 1 [facility] 50 mg 1-01 tablet by ity of tablet 00:00: mouth as [place] 00 needed for Medical Migraine. Branch diltiazem 2021-09 Yes [id number] 120mg Take 1 U nivers 120 mg 24 1-01 capsule by ity of hr capsule 00:00: mouth in [place] as 00 the Medical morning Branch and 1 capsule in the evening. fluticasone 2021-09 Yes [id number] 2{puff} Inhale 2 [facility] propionate 1-01 Puffs ity of (FLOVENT 00:00: every 12 [place] HFA) 110 00 (twelve) Medical mcg/actuati hours. Branch on inhaler Rinse mouth after each use. metformin 2021-09 Yes [id number] 500mg Take 1 U nivers ER 500 mg 1-01 tablet by ity o f 24 hr 00:00: mouth [place] tablet 00 daily with Medical breakfast. Branch pantoprazol 2021-09 Yes [id number] 40mg Take 1 [facility] e 40 mg EC 1-01 tablet by ity of tablet 00:00: mouth in [place] 00 the Medical morning. Branch rosuvastati 2021-09 Yes [id number] 10mg Take 1 [facility] n 10 mg 1-01 tablet by ity of tablet 00:00: mouth at [place] 00 bedtime. Medical Branch SUMAtriptan 2021-09 Yes [id number] 50mg Take 1 [facility] 50 mg 1-01 tablet by ity of tablet 00:00: mouth as [place] 00 needed for Medical Migraine. Branch diltiazem 2021-09 Yes [id number] 120mg Take 1 U nivers 120 mg 24 1-01 capsule by ity of hr capsule 00:00: mouth in [place] as 00 the Medical morning Branch and 1 capsule in the evening. fluticasone 2021-09 Yes [id number] 2{puff} Inhale 2 [facility] propionate 1-01 Puffs ity of (FLOVENT 00:00: every 12 [place] HFA) 110 00 (twelve) Medical mcg/actuati hours. Branch on inhaler Rinse mouth after each use. metformin 2021-09 Yes [id number] 500mg Take 1 U nivers ER 500 mg 1-01 tablet by ity o f 24 hr 00:00: mouth [place] tablet 00 daily with Medical breakfast. Branch pantoprazol 2021-09 Yes [id number] 40mg Take 1 [facility] e 40 mg EC 1-01 tablet by ity of tablet 00:00: mouth in [place] 00 the Medical morning. Branch rosuvastati 2021-09 Yes [id number] 10mg Take 1 [facility] n 10 mg 1-01 tablet by ity of tablet 00:00: mouth at [place] 00 bedtime. Medical Branch SUMAtriptan 2021-09 Yes [id number] 50mg Take 1 [facility] 50 mg 1-01 tablet by ity of tablet 00:00: mouth as [place] 00 needed for Medical Migraine. Branch diltiazem 2021-09 Yes [id number] 120mg Take 1 U nivers 120 mg 24 1-01 capsule by ity of hr capsule 00:00: mouth in [place] as 00 the Medical morning Branch and 1 capsule in the evening. fluticasone 2021-09 Yes [id number] 2{puff} Inhale 2 [facility] propionate 1-01 Puffs ity of (FLOVENT 00:00: every 12 [place] HFA) 110 00 (twelve) Medical mcg/actuati hours. Branch on inhaler Rinse mouth after each use. metformin 2021-09 Yes [id number] 500mg Take 1 U nivers ER 500 mg 1-01 tablet by ity o f 24 hr 00:00: mouth [place] tablet 00 daily with Medical breakfast. Branch pantoprazol 2021-09 Yes [id number] 40mg Take 1 [facility] e 40 mg EC 1-01 tablet by ity of tablet 00:00: mouth in [place] 00 the Medical morning. Branch rosuvastati 2021-09 Yes [id number] 10mg Take 1 [facility] n 10 mg 1-01 tablet by ity of tablet 00:00: mouth at [place] 00 bedtime. Medical Branch SUMAtriptan 2021-09 Yes [id number] 50mg Take 1 [facility] 50 mg 1-01 tablet by ity of tablet 00:00: mouth as [place] 00 needed for Medical Migraine. Branch diltiazem 2021-09 Yes [id number] 120mg Take 1 U nivers 120 mg 24 1-01 capsule by ity of hr capsule 00:00: mouth in [place] as 00 the Medical morning Branch and 1 capsule in the evening. fluticasone 2021-09 Yes [id number] 2{puff} Inhale 2 [facility] propionate 1-01 Puffs ity of (FLOVENT 00:00: every 12 [place] HFA) 110 00 (twelve) Medical mcg/actuati hours. Branch on inhaler Rinse mouth after each use. metformin 2021-09 Yes [id number] 500mg Take 1 U nivers ER 500 mg 1-01 tablet by ity o f 24 hr 00:00: mouth [place] tablet 00 daily with Medical breakfast. Branch pantoprazol 2021-09 Yes [id number] 40mg Take 1 [facility] e 40 mg EC 1-01 tablet by ity of tablet 00:00: mouth in [place] 00 the Medical morning. Branch rosuvastati 2021-09 Yes [id number] 10mg Take 1 [facility] n 10 mg 1-01 tablet by ity of tablet 00:00: mouth at [place] 00 bedtime. Medical Branch SUMAtriptan 2021-09 Yes [id number] 50mg Take 1 [facility] 50 mg 1-01 tablet by ity of tablet 00:00: mouth as [place] 00 needed for Medical Migraine. Branch diltiazem 2021-09 Yes [id number] 120mg Take 1 U nivers 120 mg 24 1-01 capsule by ity of hr capsule 00:00: mouth in [place] as 00 the Medical morning Branch and 1 capsule in the evening. fluticasone 2021-09 Yes [id number] 2{puff} Inhale 2 [facility] propionate 1-01 Puffs ity of (FLOVENT 00:00: every 12 [place] HFA) 110 00 (twelve) Medical mcg/actuati hours. Branch on inhaler Rinse mouth after each use. metformin 2021-09 Yes [id number] 500mg Take 1 U nivers ER 500 mg 1-01 tablet by ity o f 24 hr 00:00: mouth [place] tablet 00 daily with Medical breakfast. Branch pantoprazol 2021-09 Yes [id number] 40mg Take 1 [facility] e 40 mg EC 1-01 tablet by ity of tablet 00:00: mouth in [place] 00 the Medical morning. Branch rosuvastati 2021-09 Yes [id number] 10mg Take 1 [facility] n 10 mg 1-01 tablet by ity of tablet 00:00: mouth at [place] 00 bedtime. Medical Branch SUMAtriptan 2021-09 Yes [id number] 50mg Take 1 [facility] 50 mg 1-01 tablet by ity of tablet 00:00: mouth as [place] 00 needed for Medical Migraine. Branch diltiazem 2021-09 Yes [id number] 120mg Take 1 U nivers 120 mg 24 1-01 capsule by ity of hr capsule 00:00: mouth in [place] as 00 the Medical morning Branch and 1 capsule in the evening. fluticasone 2021-09 Yes [id number] 2{puff} Inhale 2 [facility] propionate 1-01 Puffs ity of (FLOVENT 00:00: every 12 [place] HFA) 110 00 (twelve) Medical mcg/actuati hours. Branch on inhaler Rinse mouth after each use. metformin 2021-09 Yes [id number] 500mg Take 1 U nivers ER 500 mg 1-01 tablet by ity o f 24 hr 00:00: mouth [place] tablet 00 daily with Medical breakfast. Branch pantoprazol 2021-09 Yes [id number] 40mg Take 1 [facility] e 40 mg EC 1-01 tablet by ity of tablet 00:00: mouth in [place] 00 the Medical morning. Branch rosuvastati 2021-09 Yes [id number] 10mg Take 1 [facility] n 10 mg 1-01 tablet by ity of tablet 00:00: mouth at [place] 00 bedtime. Medical Branch SUMAtriptan 2021-09 Yes [id number] 50mg Take 1 [facility] 50 mg 1-01 tablet by ity of tablet 00:00: mouth as [place] 00 needed for Medical Migraine. Branch diltiazem 2021-09 Yes [id number] 120mg Take 1 U nivers 120 mg 24 1-01 capsule by ity of hr capsule 00:00: mouth in [place] as 00 the Medical morning Branch and 1 capsule in the evening. fluticasone 2021-09 Yes [id number] 2{puff} Inhale 2 [facility] propionate 1-01 Puffs ity of (FLOVENT 00:00: every 12 [place] HFA) 110 00 (twelve) Medical mcg/actuati hours. Branch on inhaler Rinse mouth after each use. metformin 2021-09 Yes [id number] 500mg Take 1 U nivers ER 500 mg 1-01 tablet by ity o f 24 hr 00:00: mouth [place] tablet 00 daily with Medical breakfast. Branch pantoprazol 2021-09 Yes [id number] 40mg Take 1 [facility] e 40 mg EC 1-01 tablet by ity of tablet 00:00: mouth in [place] 00 the Medical morning. Branch rosuvastati 2021-09 Yes [id number] 10mg Take 1 [facility] n 10 mg 1-01 tablet by ity of tablet 00:00: mouth at [place] 00 bedtime. Medical Branch SUMAtriptan 2021-09 Yes [id number] 50mg Take 1 [facility] 50 mg 1-01 tablet by ity of tablet 00:00: mouth as [place] 00 needed for Medical Migraine. Branch diltiazem 2021-09 Yes [id number] 120mg Take 1 U nivers 120 mg 24 1-01 capsule by ity of hr capsule 00:00: mouth in [place] as 00 the Medical morning Branch and 1 capsule in the evening. fluticasone 2021-09 Yes [id number] 2{puff} Inhale 2 [facility] propionate 1-01 Puffs ity of (FLOVENT 00:00: every 12 [place] HFA) 110 00 (twelve) Medical mcg/actuati hours. Branch on inhaler Rinse mouth after each use. metformin 2021-09 Yes [id number] 500mg Take 1 U nivers ER 500 mg 1-01 tablet by ity o f 24 hr 00:00: mouth [place] tablet 00 daily with Medical breakfast. Branch pantoprazol 2021-09 Yes [id number] 40mg Take 1 [facility] e 40 mg EC 1-01 tablet by ity of tablet 00:00: mouth in [place] 00 the Medical morning. Branch rosuvastati 2021-09 Yes [id number] 10mg Take 1 [facility] n 10 mg 1-01 tablet by ity of tablet 00:00: mouth at [place] [address] bedtime. Medical Branch SUMAtriptan 2021-09 Yes [id number] 50mg Take 1 [facility] 50 mg 1-01 tablet by ity of tablet 00:00: mouth as [place] 00 needed for Medical Migraine. Branch diltiazem 2021-09 Yes [id number] 120mg Take 1 U nivers 120 mg 24 1-01 capsule by ity of hr capsule 00:00: mouth in [place] as 00 the Medical morning Branch and 1 capsule in the evening. fluticasone 2021-09 Yes [id number] 2{puff} Inhale 2 [facility] propionate 1-01 Puffs ity of (FLOVENT 00:00: every 12 [facility]) 110 00 (twelve) Medical mcg/actuati hours. Branch on inhaler Rinse mouth after each use. rosuvastati 2021-09 Yes [id number] 10mg Take 1 [facility] n 10 mg 1-01 tablet by ity of tablet 00:00: mouth at [place] [address] bedtime. Medical Branch diltiazem 2021-09 Yes [id number] 120mg Take 1 U nivers 120 mg 24 1-01 capsule by ity of hr capsule 00:00: mouth in [place] as 00 the Medical morning Branch and 1 capsule in the evening. fluticasone 2021-09 Yes [id number] 2{puff} Inhale 2 [facility] propionate 1-01 Puffs ity of (FLOVENT 00:00: every 12 [place] HFA) 110 00 (twelve) Medical mcg/actuati hours. Branch on inhaler Rinse mouth after each use. rosuvastati 2021-09 Yes [id number] 10mg Take 1 [facility] n 10 mg 1-01 tablet by ity of tablet 00:00: mouth at [place] 00 bedtime. Medical Branch diltiazem 2021-09 Yes [id number] 120mg Take 1 [facility] nivers 120 mg 24 1-01 capsule by ity of hr capsule 00:00: mouth in [place] as 00 the Medical morning Branch and 1 capsule in the evening. fluticasone 2021-09 Yes [id number] 2{puff} Inhale 2 [facility] propionate 1-01 Puffs ity of (FLOVENT 00:00: every 12 [place] HFA) 110 00 (twelve) Medical mcg/actuati hours. Branch on inhaler Rinse mouth after each use. rosuvastati 2021-09 Yes [id number] 10mg Take 1 [facility] n 10 mg 1-01 tablet by ity of tablet 00:00: mouth at [place] 00 bedtime. Medical Branch diltiazem 2021-09 Yes [id number] 120mg Take 1 U nivers 120 mg 24 1-01 capsule by ity of hr capsule 00:00: mouth in [place] as 00 the Medical morning Branch and 1 capsule in the evening. fluticasone 2021-09 Yes [id number] 2{puff} Inhale 2 [facility] propionate 1-01 Puffs ity of (FLOVENT 00:00: every 12 [place] HFA) 110 00 (twelve) Medical mcg/actuati hours. Branch on inhaler Rinse mouth after each use. rosuvastati 2021-09 Yes [id number] 10mg Take 1 [facility] n 10 mg 1-01 tablet by [facility] tablet 00:00: mouth at [place] 00 bedtime. Medical Branch diltiazem 2021-09 Yes [id number] 120mg Take 1 [facility] nivers 120 mg 24 1-01 capsule by [facility] of hr capsule 00:00: mouth in [place] 00 the Medical morning Branch and 1 capsule in the evening. fluticasone 2021-09 Yes [id number] 2{puff} Inhale 2 [facility] propionate 1-01 Puffs ity of (FLOVENT 00:00: every 12 [place] HFA) 110 00 (twelve) Medical mcg/actuati hours. Branch on inhaler Rinse mouth after each use. rosuvastati 2021-09 Yes [id number] 10mg Take 1 [facility] n 10 mg 1-01 tablet by [facility] of tablet 00:00: mouth at [place] 00 bedtime. Medical Branch metformin 2021-09- No [id number] 500mg Take 1 [facility] ER 500 mg 09-26 tablet by [facility] of 24 hr 00:00: 00:00 mouth [place] tablet 00 :00 daily with Medical breakfast. Branch pantoprazol 2021-09- No [id number] 40mg Take 1 [facility] e 40 mg EC 09-26 tablet by ity of tablet 00:00: 00:00 mouth in [place] 00 :00 the Medical morning. Branch SUMAtriptan 2021-09- No [id number] 50mg Take 1 [facility] 50 mg 09-26 tablet by [facility] of tablet 00:00: 00:00 mouth as [place] 00 :00 needed for Medical Migraine. Branch metformin 2021-09- No [id number] 500mg Take 1 [facility] ER 500 mg 09-26 tablet by ity of 24 hr 00:00: 00:00 mouth [place] tablet 00 :00 daily with Medical breakfast. Branch pantoprazol 2021-09- No [id number] 40mg Take 1 [facility] e 40 mg EC 09-26 tablet by ity of tablet 00:00: 00:00 mouth in [place] 00 :00 the Medical morning. [place] SUMAtriptan 2021-09- No [id number] 50mg Take 1 [facility] 50 mg 09-26 tablet by ity of tablet 00:00: 00:00 mouth as [place] 00 :00 needed for Medical Migraine. Branch metformin 2021-09- No [id number] 500mg Take 1 [facility] ER 500 mg 09-26 tablet by [facility] of 24 hr 00:00: 00:00 mouth [place] tablet 00 :00 daily with Medical breakfast. Branch pantoprazol 2021-09- No [id number] 40mg Take 1 [facility] e 40 mg EC 09-26 tablet by it[facility] of tablet 00:00: 00:00 mouth in [place] 00 :00 the Medical morning. [place] SUMAtriptan 2021-09- No [id number] 50mg Take 1 [facility] 50 mg 09-26 tablet by it[facility] of tablet 00:00: 00:00 mouth as [place] 00 :00 needed for Medical Migraine. [place] pregabalin 2021-09- No [id number] 150mg Take 1 [facility] 150 mg 09-26 capsule by [facility] of capsule 00:00: 00:00 mouth in [place] 00 :00 the Medical morning Branch and 1 capsule at noon and 1 capsule in the evening. levothyroxi 2021-09- No [id number] 50ug Take 1 [facility] ne 50 mcg 09-26 tablet by [facility] of tablet 00:00: 00:00 mouth [place] 00 :00 every Medical morning. Branch levothyroxi 2021-09- [id number] 50ug Take 1 [facility] ne 50 mcg 09-26 tablet by ity of tablet 00:00: 00:00 mouth [place] 00 :00 every Medical morning. Branch busPIRone 2021-09 Yes [id number] 20mg Take 2 [facility] [place] 10 mg 0-13 tablets by [facility] of tablet 00:00: mouth in [place] 00 the Medical morning Branch and 2 tablets in the evening. diltiazem 2021-09 Yes [id number] 120mg Take 1 [facility] n[facility] 120 mg 24 0-13 capsule by [facility] of hr capsule 00:00: mouth in [place] 00 the Medical morning Branch and 1 capsule in the evening. levothyroxi 2021-09 Yes [id number] 50ug Take 1 [facility] ne 50 mcg 0-13 tablet by ity o f tablet 00:00: mouth [place] 00 every Medical morning. Branch losartan 50 2021-09 Yes [id number] 50mg Take 1 [facility] mg tablet 0-13 tablet by ity o f 00:00: mouth in [place] 00 the Medical morning Branch and 1 tablet in the evening. metformin 2021-09 Yes [id number] 500mg Take 1 [facility] nivers ER 500 mg 0-13 tablet by ity o f 24 hr 00:00: mouth [place] tablet 00 daily with Medical breakfast. Branch STOP REGULAR METFORMIN. mirabegron 2021-09 Yes [id number] 50mg Take 1 [facility] (MYRBETRIQ) 0-13 tablet by ity of 50 mg 00:00: mouth in [place] tablet 00 the Medical morning. Branch semaglutide 2021-09 Yes [id number] Inject [facility] (OZEMPIC) 0-13 0.25 mg ity of 0.25 mg or 00:00: under the [place] 0.5 mg(2 00 skin Medical mg/1.5 mL) weekly. Branch PnIj pantoprazol 2021-09 Yes [id number] 40mg Take 1 [facility] e 40 mg EC 0-13 tablet by it[facility] of tablet 00:00: mouth in [place] 00 the Medical morning. Branch pregabalin 2021-09 Yes [id number] 150mg Take 1 [facility] 150 mg 0-13 capsule by [facility] of capsule 00:00: mouth in [place] 00 the Medical morning Branch and 1 capsule at noon and 1 capsule in the evening. rosuvastati 2021-09 Yes [id number] 10mg Take 1 [facility] n 10 mg 0-13 tablet by it[facility] of tablet 00:00: mouth at [place] 00 bedtime. Medical Branch SUMAtriptan 2021-09 Yes [id number] 50mg Take 1 [facility] 50 mg 0-13 tablet by it[facility] of tablet 00:00: mouth as [place] 00 needed for Medical Migraine. Branch topiramate 2021-09 Yes [id number] 75mg Take 3 [facility] 25 mg 0-13 tablets by it[facility] of tablet 00:00: mouth in [place] 00 the Medical morning Branch and 3 tablets in the evening. busPIRone 2021-09 Yes [id number] 20mg Take 2 [facility] [place] 10 mg 0-13 tablets by [facility] of tablet 00:00: mouth in [place] 00 the Medical morning Branch and 2 tablets in the evening. losartan 50 2021-09 Yes [id number] 50mg Take 1 [facility] mg tablet 0-13 tablet by ity o f 00:00: mouth in [place] 00 the Medical morning Branch and 1 tablet in the evening. mirabegron 2021-09 Yes [id number] 50mg Take 1 [facility] (MYRBETRIQ) 0-13 tablet by ity of 50 mg 00:00: mouth in [place] [facility] 00 the Medical morning. Branch semaglutide 2021-09 Yes [id number] Inject [facility] (OZEMPIC) 0-13 0.25 mg ity of 0.25 mg or 00:00: under the [place] 0.5 mg(2 00 skin Medical mg/1.5 mL) weekly. Branch PnIj topiramate 2021-09 Yes [id number] 75mg Take 3 [facility] 25 mg 0-13 tablets by ity of tablet 00:00: mouth in [place] 00 the Medical morning Branch and 3 tablets in the evening. busPIRone 2021-09 Yes [id number] 20mg Take 2 [facility] [place] 10 mg 0-13 tablets by [facility] of tablet 00:00: mouth in [place] 00 the Medical morning Branch and 2 tablets in the evening. losartan 50 2021-09 Yes [id number] 50mg Take 1 [facility] mg tablet 0-13 tablet by ity o f 00:00: mouth in [place] 00 the Medical morning Branch and 1 tablet in the evening. mirabegron 2021-09 Yes [id number] 50mg Take 1 [facility] (MYRBETRIQ) 0-13 tablet by ity of 50 mg 00:00: mouth in [place] tablet 00 the Medical morning. Branch semaglutide 2021-09 Yes [id number] Inject [facility] (OZEMPIC) 0-13 0.25 mg ity of 0.25 mg or 00:00: under the [place] 0.5 mg(2 00 skin Medical mg/1.5 mL) weekly. Branch PnIj topiramate 2021-09 Yes [id number] 75mg Take 3 [facility] 25 mg 0-13 tablets by it[facility] of tablet 00:00: mouth in [place] 00 the Medical morning Branch and 3 tablets in the evening. busPIRone 2021-09 Yes [id number] 20mg Take 2 [facility] [place] 10 mg 0-13 tablets by it[facility] of tablet 00:00: mouth in [place] 00 the Medical morning Branch and 2 tablets in the evening. losartan 50 2021-09 Yes [id number] 50mg Take 1 [facility] mg tablet 0-13 tablet by ity o f 00:00: mouth in [place] 00 the Medical morning Branch and 1 tablet in the evening. mirabegron 2021-09 Yes [id number] 50mg Take 1 [facility] (MYRBETRIQ) 0-13 tablet by ity of 50 mg 00:00: mouth in [place] tablet 00 the Medical morning. Branch semaglutide 2021-09 Yes [id number] Inject [facility] (OZEMPIC) 0-13 0.25 mg ity of 0.25 mg or 00:00: under the [place] 0.5 mg(2 00 skin Medical mg/1.5 mL) weekly. Branch PnIj topiramate 2021-09 Yes [id number] 75mg Take 3 [facility] 25 mg 0-13 tablets by ity of tablet 00:00: mouth in [place] 00 the Medical morning Branch and 3 tablets in the evening. busPIRone 2021-09 Yes [id number] 20mg Take 2 [facility] [place] 10 mg 0-13 tablets by it[facility] of tablet 00:00: mouth in [place] 00 the Medical morning Branch and 2 tablets in the evening. losartan 50 2021-09 Yes [id number] 50mg Take 1 [facility] mg tablet 0-13 tablet by ity o f 00:00: mouth in [place] 00 the Medical morning Branch and 1 tablet in the evening. mirabegron 2021-09 Yes [id number] 50mg Take 1 [facility] (MYRBETRIQ) 0-13 tablet by ity of 50 mg 00:00: mouth in [place] tablet 00 the Medical morning. Branch semaglutide 2021-09 Yes [id number] Inject [facility] (OZEMPIC) 0-13 0.25 mg ity of 0.25 mg or 00:00: under the [place] 0.5 mg(2 00 skin Medical mg/1.5 mL) weekly. Branch PnIj topiramate 2021-09 Yes [id number] 75mg Take 3 [facility] 25 mg 0-13 tablets by ity of tablet 00:00: mouth in [place] 00 the Medical morning Branch and 3 tablets in the evening. busPIRone 2021-09 Yes [id number] 20mg Take 2 [facility] [place] 10 mg 0-13 tablets by it[facility] of tablet 00:00: mouth in [place] 00 the Medical morning Branch and 2 tablets in the evening. losartan 50 2021-09 Yes [id number] 50mg Take 1 [facility] mg tablet 0-13 tablet by ity o f 00:00: mouth in [place] 00 the Medical morning Branch and 1 tablet in the evening. mirabegron 2021-09 Yes [id number] 50mg Take 1 [facility] (MYRBETRIQ) 0-13 tablet by ity of 50 mg 00:00: mouth in [place] tablet 00 the Medical morning. Branch semaglutide 2021-09 Yes [id number] Inject [facility] (OZEMPIC) 0-13 0.25 mg ity of 0.25 mg or 00:00: under the [place] 0.5 mg(2 00 skin Medical mg/1.5 mL) weekly. Branch PnIj topiramate 2021-09 Yes [id number] 75mg Take 3 [facility] 25 mg 0-13 tablets by ity of tablet 00:00: mouth in [place] 00 the Medical morning Branch and 3 tablets in the evening. busPIRone 2021-09 Yes [id number] 20mg Take 2 [facility] [place] 10 mg 0-13 tablets by ity of tablet 00:00: mouth in [place] 00 the Medical morning Branch and 2 tablets in the evening. losartan 50 2021-09 Yes [id number] 50mg Take 1 [facility] mg tablet 0-13 tablet by ity o f 00:00: mouth in [place] 00 the Medical morning Branch and 1 tablet in the evening. mirabegron 2021-09 Yes [id number] 50mg Take 1 [facility] (MYRBETRIQ) 0-13 tablet by ity of 50 mg 00:00: mouth in [place] tablet 00 the Medical morning. Branch semaglutide 2021-09 Yes [id number] Inject [facility] (OZEMPIC) 0-13 0.25 mg ity of 0.25 mg or 00:00: under the [place] 0.5 mg(2 00 skin Medical mg/1.5 mL) weekly. Branch PnIj topiramate 2021-09 Yes [id number] 75mg Take 3 [facility] 25 mg 0-13 tablets by ity of tablet 00:00: mouth in [place] 00 the Medical morning Branch and 3 tablets in the evening. busPIRone 2021-09 Yes [id number] 20mg Take 2 [facility] [place] 10 mg 0-13 tablets by it[facility] of tablet 00:00: mouth in [place] 00 the Medical morning Branch and 2 tablets in the evening. losartan 50 2021-09 Yes [id number] 50mg Take 1 [facility] mg tablet 0-13 tablet by ity o f 00:00: mouth in [place] 00 the Medical morning Branch and 1 tablet in the evening. mirabegron 2021-09 Yes [id number] 50mg Take 1 [facility] (MYRBETRIQ) 0-13 tablet by ity of 50 mg 00:00: mouth in [place] tablet 00 the Medical morning. Branch semaglutide 2021-09 Yes [id number] Inject [facility] (OZEMPIC) 0-13 0.25 mg ity of 0.25 mg or 00:00: under the [place] 0.5 mg(2 00 skin Medical mg/1.5 mL) weekly. Branch PnIj topiramate 2021-09 Yes [id number] 75mg Take 3 [facility] 25 mg 0-13 tablets by ity of tablet 00:00: mouth in [place] 00 the Medical morning Branch and 3 tablets in the evening. busPIRone 2021-09 Yes [id number] 20mg Take 2 [facility] [place] 10 mg 0-13 tablets by ity of tablet 00:00: mouth in [place] 00 the Medical morning Branch and 2 tablets in the evening. losartan 50 2021-09 Yes [id number] 50mg Take 1 [facility] mg tablet 0-13 tablet by ity o f 00:00: mouth in [place] 00 the Medical morning Branch and 1 tablet in the evening. mirabegron 2021-09 Yes [id number] 50mg Take 1 [facility] (MYRBETRIQ) 0-13 tablet by ity of 50 mg 00:00: mouth in [place] tablet 00 the Medical morning. Branch semaglutide 2021-09 Yes [id number] Inject [facility] (OZEMPIC) 0-13 0.25 mg ity of 0.25 mg or 00:00: under the [place] 0.5 mg(2 00 skin Medical mg/1.5 mL) weekly. Branch PnIj topiramate 2021-09 Yes [id number] 75mg Take 3 [facility] 25 mg 0-13 tablets by ity of tablet 00:00: mouth in [place] 00 the Medical morning Branch and 3 tablets in the evening. busPIRone 2021-09 Yes [id number] 20mg Take 2 [facility] [place] 10 mg 0-13 tablets by ity of tablet 00:00: mouth in [place] 00 the Medical morning Branch and 2 tablets in the evening. losartan 50 2021-09 Yes [id number] 50mg Take 1 [facility] mg tablet 0-13 tablet by ity o f 00:00: mouth in [place] 00 the Medical morning Branch and 1 tablet in the evening. mirabegron 2021-09 Yes [id number] 50mg Take 1 [facility] (MYRBETRIQ) 0-13 tablet by ity of 50 mg 00:00: mouth in [place] tablet 00 the Medical morning. Branch semaglutide 2021-09 Yes [id number] Inject [facility] (OZEMPIC) 0-13 0.25 mg ity of 0.25 mg or 00:00: under the [place] 0.5 mg(2 00 skin Medical mg/1.5 mL) weekly. Branch PnIj topiramate 2021-09 Yes [id number] 75mg Take 3 [facility] 25 mg 0-13 tablets by ity of tablet 00:00: mouth in [place] 00 the Medical morning Branch and 3 tablets in the evening. busPIRone 2021-09 Yes [id number] 20mg Take 2 [facility] [place] 10 mg 0-13 tablets by ity of tablet 00:00: mouth in [place] 00 the Medical morning Branch and 2 tablets in the evening. losartan 50 2021-09 Yes [id number] 50mg Take 1 [facility] mg tablet 0-13 tablet by ity o f 00:00: mouth in [place] 00 the Medical morning Branch and 1 tablet in the evening. mirabegron 2021-09 Yes [id number] 50mg Take 1 [facility] (MYRBETRIQ) 0-13 tablet by ity of 50 mg 00:00: mouth in [place] tablet 00 the Medical morning. Branch semaglutide 2021-09 Yes [id number] Inject [facility] (OZEMPIC) 0-13 0.25 mg ity of 0.25 mg or 00:00: under the [place] 0.5 mg(2 00 skin Medical mg/1.5 mL) weekly. Branch PnIj topiramate 2021-09 Yes [id number] 75mg Take 3 [facility] 25 mg 0-13 tablets by ity of tablet 00:00: mouth in [place] 00 the Medical morning Branch and 3 tablets in the evening. busPIRone 2021-09 Yes [id number] 20mg Take 2 [facility] [place] 10 mg 0-13 tablets by ity of tablet 00:00: mouth in [place] 00 the Medical morning Branch and 2 tablets in the evening. losartan 50 2021-09 Yes [id number] 50mg Take 1 [facility] mg tablet 0-13 tablet by ity o f 00:00: mouth in [place] 00 the Medical morning Branch and 1 tablet in the evening. mirabegron 2021-09 Yes [id number] 50mg Take 1 [facility] (MYRBETRIQ) 0-13 tablet by ity of 50 mg 00:00: mouth in [place] tablet 00 the Medical morning. Branch semaglutide 2021-09 Yes [id number] Inject [facility] (OZEMPIC) 0-13 0.25 mg ity of 0.25 mg or 00:00: under the [place] 0.5 mg(2 00 skin Medical mg/1.5 mL) weekly. Branch PnIj topiramate 2021-09 Yes [id number] 75mg Take 3 [facility] 25 mg 0-13 tablets by ity of tablet 00:00: mouth in [place] 00 the Medical morning Branch and 3 tablets in the evening. busPIRone 2021-09 Yes [id number] 20mg Take 2 [facility] [place] 10 mg 0-13 tablets by ity of tablet 00:00: mouth in [place] 00 the Medical morning Branch and 2 tablets in the evening. losartan 50 2021-09 Yes [id number] 50mg Take 1 [facility] mg tablet 0-13 tablet by ity o f 00:00: mouth in [place] 00 the Medical morning Branch and 1 tablet in the evening. mirabegron 2021-09 Yes [id number] 50mg Take 1 [facility] (MYRBETRIQ) 0-13 tablet by ity of 50 mg 00:00: mouth in [place] tablet 00 the Medical morning. Branch semaglutide 2021-09 Yes [id number] Inject [facility] (OZEMPIC) 0-13 0.25 mg ity of 0.25 mg or 00:00: under the [place] 0.5 mg(2 00 skin Medical mg/1.5 mL) weekly. Branch PnIj topiramate 2021-09 Yes [id number] 75mg Take 3 [facility] 25 mg 0-13 tablets by ity of tablet 00:00: mouth in [place] 00 the Medical morning Branch and 3 tablets in the evening. busPIRone 2021-09 Yes [id number] 20mg Take 2 [facility] [place] 10 mg 0-13 tablets by ity of tablet 00:00: mouth in [place] 00 the Medical morning Branch and 2 tablets in the evening. losartan 50 2021-09 Yes [id number] 50mg Take 1 [facility] mg tablet 0-13 tablet by ity o f 00:00: mouth in [place] 00 the Medical morning Branch and 1 tablet in the evening. mirabegron 2021-09 Yes [id number] 50mg Take 1 [facility] (MYRBETRIQ) 0-13 tablet by ity of 50 mg 00:00: mouth in [place] tablet 00 the Medical morning. Branch semaglutide 2021-09 Yes [id number] Inject [facility] (OZEMPIC) 0-13 0.25 mg ity of 0.25 mg or 00:00: under the [place] 0.5 mg(2 00 skin Medical mg/1.5 mL) weekly. Branch PnIj topiramate 2021-09 Yes [id number] 75mg Take 3 [facility] 25 mg 0-13 tablets by ity of tablet 00:00: mouth in [place] 00 the Medical morning Branch and 3 tablets in the evening. busPIRone 2021-09 Yes [id number] 20mg Take 2 [facility] [place] 10 mg 0-13 tablets by ity of tablet 00:00: mouth in [place] 00 the Medical morning Branch and 2 tablets in the evening. losartan 50 2021-09 Yes [id number] 50mg Take 1 [facility] mg tablet 0-13 tablet by ity o f 00:00: mouth in [place] 00 the Medical morning Branch and 1 tablet in the evening. mirabegron 2021-09 Yes [id number] 50mg Take 1 [facility] (MYRBETRIQ) 0-13 tablet by ity of 50 mg 00:00: mouth in [place] tablet 00 the Medical morning. Branch semaglutide 2021-09 Yes [id number] Inject [facility] (OZEMPIC) 0-13 0.25 mg ity of 0.25 mg or 00:00: under the [place] 0.5 mg(2 00 skin Medical mg/1.5 mL) weekly. Branch PnIj topiramate 2021-09 Yes [id number] 75mg Take 3 [facility] 25 mg 0-13 tablets by ity of tablet 00:00: mouth in [place] 00 the Medical morning Branch and 3 tablets in the evening. busPIRone 2021-09 Yes [id number] 20mg Take 2 [facility] [place] 10 mg 0-13 tablets by ity of tablet 00:00: mouth in [place] 00 the Medical morning Branch and 2 tablets in the evening. losartan 50 2021-09 Yes [id number] 50mg Take 1 [facility] mg tablet 0-13 tablet by ity o f 00:00: mouth in [place] 00 the Medical morning Branch and 1 tablet in the evening. mirabegron 2021-09 Yes [id number] 50mg Take 1 [facility] (MYRBETRIQ) 0-13 tablet by ity of 50 mg 00:00: mouth in [place] tablet 00 the Medical morning. Branch semaglutide 2021-09 Yes [id number] Inject [facility] (OZEMPIC) 0-13 0.25 mg ity of 0.25 mg or 00:00: under the [place] 0.5 mg(2 00 skin Medical mg/1.5 mL) weekly. Branch PnIj topiramate 2021-09 Yes [id number] 75mg Take 3 [facility] 25 mg 0-13 tablets by ity of tablet 00:00: mouth in [place] 00 the Medical morning Branch and 3 tablets in the evening. busPIRone 2021-09 Yes [id number] 20mg Take 2 [facility] [place] 10 mg 0-13 tablets by ity of tablet 00:00: mouth in [place] 00 the Medical morning Branch and 2 tablets in the evening. losartan 50 2021-09 Yes [id number] 50mg Take 1 [facility] mg tablet 0-13 tablet by ity o f 00:00: mouth in [place] 00 the Medical morning Branch and 1 tablet in the evening. mirabegron 2021-09 Yes [id number] 50mg Take 1 [facility] (MYRBETRIQ) 0-13 tablet by ity of 50 mg 00:00: mouth in [place] tablet 00 the Medical morning. Branch semaglutide 2021-09 Yes [id number] Inject [facility] (OZEMPIC) 0-13 0.25 mg ity of 0.25 mg or 00:00: under the [place] 0.5 mg(2 00 skin Medical mg/1.5 mL) weekly. Branch PnIj topiramate 2021-09 Yes [id number] 75mg Take 3 [facility] 25 mg 0-13 tablets by ity of tablet 00:00: mouth in [place] 00 the Medical morning Branch and 3 tablets in the evening. busPIRone 2021-09 Yes [id number] 20mg Take 2 [facility] [place] 10 mg 0-13 tablets by ity of tablet 00:00: mouth in [place] 00 the Medical morning Branch and 2 tablets in the evening. losartan 50 2021-09 Yes [id number] 50mg Take 1 [facility] mg tablet 0-13 tablet by ity o f 00:00: mouth in [place] 00 the Medical morning Branch and 1 tablet in the evening. mirabegron 2021-09 Yes [id number] 50mg Take 1 [facility] (MYRBETRIQ) 0-13 tablet by ity of 50 mg 00:00: mouth in [place] tablet 00 the Medical morning. Branch semaglutide 2021-09 Yes [id number] Inject [facility] (OZEMPIC) 0-13 0.25 mg ity of 0.25 mg or 00:00: under the [place] 0.5 mg(2 00 skin Medical mg/1.5 mL) weekly. Branch PnIj topiramate 2021-09 Yes [id number] 75mg Take 3 [facility] 25 mg 0-13 tablets by ity of tablet 00:00: mouth in [place] 00 the Medical morning Branch and 3 tablets in the evening. busPIRone 2021-09 Yes [id number] 20mg Take 2 [facility] [place] 10 mg 0-13 tablets by ity of tablet 00:00: mouth in [place] 00 the Medical morning Branch and 2 tablets in the evening. losartan 50 2021-09 Yes [id number] 50mg Take 1 [facility] mg tablet 0-13 tablet by ity o f 00:00: mouth in [place] 00 the Medical morning Branch and 1 tablet in the evening. mirabegron 2021-09 Yes [id number] 50mg Take 1 [facility] (MYRBETRIQ) 0-13 tablet by ity of 50 mg 00:00: mouth in [place] tablet 00 the Medical morning. Branch semaglutide 2021-09 Yes [id number] Inject [facility] (OZEMPIC) 0-13 0.25 mg ity of 0.25 mg or 00:00: under the [place] 0.5 mg(2 00 skin Medical mg/1.5 mL) weekly. Branch PnIj topiramate 2021-09 Yes [id number] 75mg Take 3 [facility] 25 mg 0-13 tablets by ity of tablet 00:00: mouth in [place] 00 the Medical morning Branch and 3 tablets in the evening. busPIRone 2021-09 Yes [id number] 20mg Take 2 [facility] [place] 10 mg 0-13 tablets by ity of tablet 00:00: mouth in [place] 00 the Medical morning Branch and 2 tablets in the evening. losartan 50 2021-09 Yes [id number] 50mg Take 1 [facility] mg tablet 0-13 tablet by ity o f 00:00: mouth in [place] 00 the Medical morning Branch and 1 tablet in the evening. mirabegron 2021-09 Yes [id number] 50mg Take 1 [facility] (MYRBETRIQ) 0-13 tablet by ity of 50 mg 00:00: mouth in [place] tablet 00 the Medical morning. Branch semaglutide 2021-09 Yes [id number] Inject [facility] (OZEMPIC) 0-13 0.25 mg ity of 0.25 mg or 00:00: under the [place] 0.5 mg(2 00 skin Medical mg/1.5 mL) weekly. Branch PnIj topiramate 2021-09 Yes [id number] 75mg Take 3 [facility] 25 mg 0-13 tablets by ity of tablet 00:00: mouth in [place] 00 the Medical morning Branch and 3 tablets in the evening. busPIRone 2021-09 Yes [id number] 20mg Take 2 [facility] [place] 10 mg 0-13 tablets by ity of tablet 00:00: mouth in [place] 00 the Medical morning Branch and 2 tablets in the evening. losartan 50 2021-09 Yes [id number] 50mg Take 1 [facility] mg tablet 0-13 tablet by ity o f 00:00: mouth in [place] 00 the Medical morning Branch and 1 tablet in the evening. mirabegron 2021-09 Yes [id number] 50mg Take 1 [facility] (MYRBETRIQ) 0-13 tablet by ity of 50 mg 00:00: mouth in [place] tablet 00 the Medical morning. Branch semaglutide 2021-09 Yes [id number] Inject [facility] (OZEMPIC) 0-13 0.25 mg ity of 0.25 mg or 00:00: under the [place] 0.5 mg(2 00 skin Medical mg/1.5 mL) weekly. Branch PnIj topiramate 2021-09 Yes [id number] 75mg Take 3 [facility] 25 mg 0-13 tablets by ity of tablet 00:00: mouth in [place] 00 the Medical morning Branch and 3 tablets in the evening. busPIRone 2021-09 Yes [id number] 20mg Take 2 [facility] [place] 10 mg 0-13 tablets by ity of tablet 00:00: mouth in [place] 00 the Medical morning Branch and 2 tablets in the evening. losartan 50 2021-09 Yes [id number] 50mg Take 1 [facility] mg tablet 0-13 tablet by ity o f 00:00: mouth in [place] 00 the Medical morning Branch and 1 tablet in the evening. mirabegron 2021-09 Yes [id number] 50mg Take 1 [facility] (MYRBETRIQ) 0-13 tablet by ity of 50 mg 00:00: mouth in [place] tablet 00 the Medical morning. Branch semaglutide 2021-09 Yes [id number] Inject [facility] (OZEMPIC) 0-13 0.25 mg ity of 0.25 mg or 00:00: under the [place] 0.5 mg(2 00 skin Medical mg/1.5 mL) weekly. Branch PnIj topiramate 2021-09 Yes [id number] 75mg Take 3 [facility] 25 mg 0-13 tablets by ity of tablet 00:00: mouth in [place] 00 the Medical morning Branch and 3 tablets in the evening. busPIRone 2021-09 Yes [id number] 20mg Take 2 [facility] [place] 10 mg 0-13 tablets by it[facility] of tablet 00:00: mouth in [place] 00 the Medical morning Branch and 2 tablets in the evening. losartan 50 2021-09 Yes [id number] 50mg Take 1 [facility] mg tablet 0-13 tablet by ity o f 00:00: mouth in [place] 00 the Medical morning Branch and 1 tablet in the evening. mirabegron 2021-09 Yes [id number] 50mg Take 1 [facility] (MYRBETRIQ) 0-13 tablet by ity of 50 mg 00:00: mouth in [place] tablet 00 the Medical morning. Branch semaglutide 2021-09 Yes [id number] Inject [facility] (OZEMPIC) 0-13 0.25 mg ity of 0.25 mg or 00:00: under the [place] 0.5 mg(2 00 skin Medical mg/1.5 mL) weekly. Branch PnIj topiramate 2021-09 Yes [id number] 75mg Take 3 [facility] 25 mg 0-13 tablets by it[facility] of tablet 00:00: mouth in [place] 00 the Medical morning Branch and 3 tablets in the evening. losartan 50 2021-09 Yes [id number] 50mg Take 1 [facility] mg tablet 0-13 tablet by ity o f 00:00: mouth in [place] 00 the Medical morning Branch and 1 tablet in the evening. mirabegron 2021-09 Yes [id number] 50mg Take 1 [facility] (MYRBETRIQ) 0-13 tablet by ity of 50 mg 00:00: mouth in [place] tablet 00 the Medical morning. Branch semaglutide 2021-09 Yes [id number] Inject [facility] (OZEMPIC) 0-13 0.25 mg ity of 0.25 mg or 00:00: under the [place] 0.5 mg(2 00 skin Medical mg/1.5 mL) weekly. Branch PnIj topiramate 2021-09 Yes [id number] 75mg Take 3 [facility] 25 mg 0-13 tablets by [facility] of tablet 00:00: mouth in [place] 00 the Medical morning Branch and 3 tablets in the evening. losartan 50 2021-09 Yes [id number] 50mg Take 1 [facility] mg tablet 0-13 tablet by ity o f 00:00: mouth in [place] 00 the Medical morning Branch and 1 tablet in the evening. mirabegron 2021-09 Yes [id number] 50mg Take 1 [facility] (MYRBETRIQ) 0-13 tablet by ity of 50 mg 00:00: mouth in [place] tablet 00 the Medical morning. Branch semaglutide 2021-09 Yes [id number] Inject [facility] (OZEMPIC) 0-13 0.25 mg ity of 0.25 mg or 00:00: under the [place] 0.5 mg(2 00 skin Medical mg/1.5 mL) weekly. Branch PnIj topiramate 2021-09 Yes [id number] 75mg Take 3 [facility] 25 mg 0-13 tablets by ity of tablet 00:00: mouth in [place] 00 the Medical morning Branch and 3 tablets in the evening. losartan 50 2021-09 Yes [id number] 50mg Take 1 [facility] mg tablet 0-13 tablet by ity o f 00:00: mouth in [place] 00 the Medical morning Branch and 1 tablet in the evening. mirabegron 2021-09 Yes [id number] 50mg Take 1 [facility] (MYRBETRIQ) 0-13 tablet by ity of 50 mg 00:00: mouth in [place] tablet 00 the Medical morning. Branch semaglutide 2021-09 Yes [id number] Inject [facility] (OZEMPIC) 0-13 0.25 mg ity of 0.25 mg or 00:00: under the [place] 0.5 mg(2 00 skin Medical mg/1.5 mL) weekly. Branch PnIj topiramate 2021-09 Yes [id number] 75mg Take 3 [facility] 25 mg 0-13 tablets by ity of tablet 00:00: mouth in [place] 00 the Medical morning Branch and 3 tablets in the evening. losartan 50 2021-09 Yes [id number] 50mg Take 1 [facility] mg tablet 0-13 tablet by ity o f 00:00: mouth in [place] 00 the Medical morning Branch and 1 tablet in the evening. mirabegron 2021-09 Yes [id number] 50mg Take 1 [facility] (MYRBETRIQ) 0-13 tablet by ity of 50 mg 00:00: mouth in [place] tablet 00 the Medical morning. Branch semaglutide 2021-09 Yes [id number] Inject [facility] (OZEMPIC) 0-13 0.25 mg ity of 0.25 mg or 00:00: under the [place] 0.5 mg(2 00 skin Medical mg/1.5 mL) weekly. Branch PnIj topiramate 2021-09 Yes [id number] 75mg Take 3 [facility] 25 mg 0-13 tablets by ity of tablet 00:00: mouth in [place] 00 the Medical morning Branch and 3 tablets in the evening. losartan 50 2021-09 Yes [id number] 50mg Take 1 [facility] mg tablet 0-13 tablet by ity o f 00:00: mouth in [place] 00 the Medical morning Branch and 1 tablet in the evening. mirabegron 2021-09 Yes [id number] 50mg Take 1 [facility] (MYRBETRIQ) 0-13 tablet by ity of 50 mg 00:00: mouth in [place] tablet 00 the Medical morning. Branch semaglutide 2021-09 Yes [id number] Inject [facility] (OZEMPIC) 0-13 0.25 mg ity of 0.25 mg or 00:00: under the [place] 0.5 mg(2 00 skin Medical mg/1.5 mL) weekly. Branch PnIj topiramate 2021-09 Yes [id number] 75mg Take 3 [facility] 25 mg 0-13 tablets by ity of tablet 00:00: mouth in [place] 00 the Medical morning Branch and 3 tablets in the evening. losartan 50 2021-09 Yes [id number] 50mg Take 1 [facility] mg tablet 0-13 tablet by ity o f 00:00: mouth in [place] 00 the Medical morning Branch and 1 tablet in the evening. mirabegron 2021-09 Yes [id number] 50mg Take 1 [facility] (MYRBETRIQ) 0-13 tablet by ity of 50 mg 00:00: mouth in [place] tablet 00 the Medical morning. Branch semaglutide 2021-09 Yes [id number] Inject [facility] (OZEMPIC) 0-13 0.25 mg ity of 0.25 mg or 00:00: under the [place] 0.5 mg(2 00 skin Medical mg/1.5 mL) weekly. Branch PnIj topiramate 2021-09 Yes [id number] 75mg Take 3 [facility] 25 mg 0-13 tablets by ity of tablet 00:00: mouth in [place] 00 the Medical morning Branch and 3 tablets in the evening. losartan 50 2021-09 Yes [id number] 50mg Take 1 [facility] mg tablet 0-13 tablet by ity o f 00:00: mouth in [place] 00 the Medical morning Branch and 1 tablet in the evening. mirabegron 2021-09 Yes [id number] 50mg Take 1 [facility] (MYRBETRIQ) 0-13 tablet by ity of 50 mg 00:00: mouth in [place] tablet 00 the Medical morning. Branch semaglutide 2021-09 Yes [id number] Inject [facility] (OZEMPIC) 0-13 0.25 mg ity of 0.25 mg or 00:00: under the [place] 0.5 mg(2 00 skin Medical mg/1.5 mL) weekly. Branch PnIj topiramate 2021-09 Yes [id number] 75mg Take 3 [facility] 25 mg 0-13 tablets by ity of tablet 00:00: mouth in [place] 00 the Medical morning Branch and 3 tablets in the evening. losartan 50 2021-09 Yes [id number] 50mg Take 1 [facility] mg tablet 0-13 tablet by ity o f 00:00: mouth in [place] 00 the Medical morning Branch and 1 tablet in the evening. mirabegron 2021-09 Yes [id number] 50mg Take 1 [facility] (MYRBETRIQ) 0-13 tablet by ity of 50 mg 00:00: mouth in [place] tablet 00 the Medical morning. Branch semaglutide 2021-09 Yes [id number] Inject [facility] (OZEMPIC) 0-13 0.25 mg ity of 0.25 mg or 00:00: under the [place] 0.5 mg(2 00 skin Medical mg/1.5 mL) weekly. Branch PnIj topiramate 2021-09 Yes [id number] 75mg Take 3 [facility] 25 mg 0-13 tablets by ity of tablet 00:00: mouth in [place] 00 the Medical morning Branch and 3 tablets in the evening. losartan 50 2021-09 Yes [id number] 50mg Take 1 [facility] mg tablet 0-13 tablet by ity o f 00:00: mouth in [place] 00 the Medical morning Branch and 1 tablet in the evening. mirabegron 2021-09 Yes [id number] 50mg Take 1 [facility] (MYRBETRIQ) 0-13 tablet by ity of 50 mg 00:00: mouth in [place] tablet 00 the Medical morning. Branch semaglutide 2021-09 Yes [id number] Inject [facility] (OZEMPIC) 0-13 0.25 mg ity of 0.25 mg or 00:00: under the [place] 0.5 mg(2 00 skin Medical mg/1.5 mL) weekly. Branch PnIj topiramate 2021-09 Yes [id number] 75mg Take 3 [facility] 25 mg 0-13 tablets by ity of tablet 00:00: mouth in [place] 00 the Medical morning Branch and 3 tablets in the evening. losartan 50 2021-09 Yes [id number] 50mg Take 1 [facility] mg tablet 0-13 tablet by ity o f 00:00: mouth in [place] 00 the Medical morning Branch and 1 tablet in the evening. mirabegron 2021-09 Yes [id number] 50mg Take 1 [facility] (MYRBETRIQ) 0-13 tablet by ity of 50 mg 00:00: mouth in [place] tablet 00 the Medical morning. Branch semaglutide 2021-09 Yes [id number] Inject [facility] (OZEMPIC) 0-13 0.25 mg ity of 0.25 mg or 00:00: under the [place] 0.5 mg(2 00 skin Medical mg/1.5 mL) weekly. Branch PnIj topiramate 2021-09 Yes [id number] 75mg Take 3 [facility] 25 mg 0-13 tablets by ity of tablet 00:00: mouth in [place] 00 the Medical morning Branch and 3 tablets in the evening. busPIRone 2021-09- No [id number] 20mg Take 2 [facility] 10 mg 0-13 -17 tablets by ity of tablet 00:00: 00:00 mouth in [place] 00 :00 the Medical morning Branch and 2 tablets in the evening. diltiazem 2021-09- No [id number] 120mg Take 1 [facility] 120 mg 24 -07-27 capsule by ity of hr capsule 00:00: 00:00 mouth in [place] 00 :00 the Medical morning Branch and 1 capsule in the evening. levothyroxi 2021-09- No [id number] 50ug Take 1 [facility] ne 50 mcg 0-13 07-27 tablet by ity of tablet 00:00: 00:00 mouth [place] 00 :00 every Medical morning. Branch metformin 2021-09- No [id number] 500mg Take 1 [facility] ER 500 mg 0-13 07-27 tablet by ity of 24 hr 00:00: 00:00 mouth [place] tablet 00 :00 daily with Medical breakfast. Branch STOP REGULAR METFORMIN. pantoprazol 2021-09- No [id number] 40mg Take 1 [facility] e 40 mg EC 07-27 tablet by ity of tablet 00:00: 00:00 mouth in [place] 00 :00 the Medical morning. Branch pregabalin 2021-09- No [id number] 150mg Take 1 [facility] 150 mg 07-27 capsule by ity of capsule 00:00: 00:00 mouth in [place] 00 :00 the Medical morning Branch and 1 capsule at noon and 1 capsule in the evening. rosuvastati 2021-09- No [id number] 10mg Take 1 [facility] n 10 mg 07-27 tablet by ity of tablet 00:00: 00:00 mouth at [place] 00 :00 bedtime. Medical Branch SUMAtriptan 2021-09- No [id number] 50mg Take 1 [facility] 50 mg 07-27 tablet by ity of tablet 00:00: 00:00 mouth as [place] 00 :00 needed for Medical Migraine. Branch diltiazem 2021-09- No [id number] 120mg Take 1 [facility] 120 mg 24 07-27 capsule by ity of hr capsule 00:00: 00:00 mouth in [facility] 00 :00 the Medical morning Branch and 1 capsule in the evening. levothyroxi 2021-09- No [id number] 50ug Take 1 [facility] ne 50 mcg 07-27 tablet by ity of tablet 00:00: 00:00 mouth [place] 00 :00 every Medical morning. Branch metformin 2021-09- No [id number] 500mg Take 1 [facility] ER 500 mg 07-27 tablet by ity of 24 hr 00:00: 00:00 mouth [place] tablet 00 :00 daily with Medical breakfast. Branch STOP REGULAR METFORMIN. pantoprazol 2021-09- No [id number] 40mg Take 1 [facility] e 40 mg EC 07-27 tablet by ity of tablet 00:00: 00:00 mouth in [place] 00 :00 the Medical morning. Branch pregabalin 2021-09- No [id number] 150mg Take 1 [facility] 150 mg 07-27 capsule by ity of capsule 00:00: 00:00 mouth in [place] 00 :00 the Medical morning Branch and 1 capsule at noon and 1 capsule in the evening. rosuvastati 2021-09- No [id number] 10mg Take 1 [facility] n 10 mg 0-13 11-01 tablet by ity of tablet 00:00: 00:00 mouth at [place] 00 :00 bedtime. Medical Branch SUMAtriptan 2021-09- No [id number] 50mg Take 1 [facility] 50 mg 0-13 11-01 tablet by ity of tablet 00:00: 00:00 mouth as [place] 00 :00 needed for Medical Migraine. Branch SUMAtriptan Yes [id number] 50mg Take 1 [facility] 50 mg 9-30 tablet by ity of tablet 00:00: mouth as [place] 00 needed for Medical Migraine. Branch SUMAtriptan Yes [id number] 50mg Take 1 [facility] 50 mg 9-30 tablet by ity of tablet 00:00: mouth as [place] 00 needed for Medical Migraine. Branch SUMAtriptan Yes [id number] 50mg Take 1 [facility] 50 mg 9-30 tablet by ity of tablet 00:00: mouth as [place] 00 needed for Medical Migraine. Branch SUMAtriptan Yes [id number] 50mg Take 1 [facility] 50 mg 9-30 tablet by ity of tablet 00:00: mouth as [place] 00 needed for Medical Migraine. Branch SUMAtriptan Yes [id number] 50mg Take 1 [facility] 50 mg 9-30 tablet by ity of tablet 00:00: mouth as [place] 00 needed for Medical Migraine. Branch SUMAtriptan 2021- No [id number] 50mg Take 1 [facility] 50 mg 9-30 10-13 tablet by ity of tablet 00:00: 00:00 mouth as [place] 00 :00 needed for Medical Migraine. Branch FOLIC ACID Yes Take by [facility] ers ORAL 06-17 mouth ity of 10:41: daily. [place] 15 Medical Branch MULTIVIT Yes Take by [facility] s &MINERALS/F 06-17 mouth. ity of ERROUS FUM 10:41: [place] (MULTI 15 Medical VITAMIN Branch ORAL) METHYLCELLU Yes [facility] s LOSE (FIBER 06-17 ity of [...] Branch unit) tablet CRANBERRY Yes Take by [employer] rs FRUIT - mouth ity of EXTRACT 10:41: daily. [place] (CRANBERRY 15 Medical ORAL) Branch CALCIUM Yes Take by [facility] ORAL - mouth ity of 10:41: daily. [place] 15 Medical Branch DOCOSAHEXAN Yes 1000mg Take 1,000 [facility] OIC 9-22 mg by ity of ACID/EPA 10:41: mouth [place] (FISH OIL 15 daily. Medical ORAL) Branch BIOTIN ORAL Yes Take by [facility] vers 06-17 mouth. ity of 10:41: [place] 15 Medical Branch FOLIC ACID Yes Take by Univ ers ORAL - mouth ity of 10:41: daily. [place] 15 Medical Branch MULTIVIT Yes Take by [employer] s &MINERALS/F 06-17 mouth. ity of ERROUS FUM 10:41: [place] (MULTI 15 Medical VITAMIN Branch ORAL) METHYLCELLU Yes Univer s LOSE (FIBER 06-17 ity of THERAPY 10:41: [place] MISC) 15 Medical Branch DOCUSATE Yes Take by [employer] SODIUM - mouth. ity of (COLACE [...] Branch unit) tablet CRANBERRY Yes Take by [employer] rs FRUIT -22 mouth ity of EXTRACT 10:41: daily. [place] (CRANBERRY 15 Medical ORAL) Branch CALCIUM Yes Take by [facility] ORAL 9-22 mouth ity of 10:41: daily. [place] 15 Medical Branch DOCOSAHEXAN Yes 1000mg Take 1,000 [facility] OIC 9-22 mg by ity of ACID/EPA 10:41: mouth [place] (FISH OIL 15 daily. Medical ORAL) Branch BIOTIN ORAL Yes Take by Uni vers - mouth. ity of 10:41: [place] [address] Medical Branch FOLIC ACID Yes Take by [facility] ers ORAL 06-17 mouth ity of 10:41: daily. [place] [address] Medical Branch MULTIVIT Yes Take by Univer s &MINERALS/F 06-17 mouth. ity of ERROUS FUM 10:41: [place] (MULTI 15 Medical VITAMIN Branch ORAL) METHYLCELLU Yes Univer s LOSE (FIBER 06-17 ity of THERAPY 10:41: [place] MISC) Medical Branch DOCUSATE Yes Take by [...] 06-17 mouth ity of EXTRACT 10:41: daily. [place] (CRANBERRY 15 Medical ORAL) Branch CALCIUM Yes Take by [facility] ORAL -22 mouth ity of 10:41: daily. [place] [address] Medical Branch DOCOSAHEXAN Yes 1000mg Take 1,000 [facility] OIC 9-22 mg by ity of ACID/EPA 10:41: mouth [place] (FISH OIL 15 daily. Medical ORAL) Branch BIOTIN ORAL Yes Take by [facility] vers -22 mouth. ity of 10:41: [place] [address] Medical Branch FOLIC ACID Yes Take by [facility] ers ORAL - mouth ity of 10:41: daily. [place] 15 Medical Branch MULTIVIT Yes Take by Univer s &MINERALS/F 9-22 mouth. ity of ERROUS FUM 10:41: [place] (MULTI 15 Medical VITAMIN Branch ORAL) METHYLCELLU 0 Yes Univer s LOSE (FIBER 9-22 ity of THERAPY 10:41: [place] [facility]) Medical Branch DOCUSATE Yes Take by Univer [...] unit) tablet CRANBERRY Yes [facility] - mouth ity of EXTRACT 10:41: daily. [place] (CRANBERRY 15 Medical ORAL) Branch CALCIUM Yes Take by [facility] ORAL -22 mouth ity of 10:41: daily. [place] [address] Medical Branch DOCOSAHEXAN Yes 1000mg Take 1,000 [facility] OIC 9-22 mg by ity of ACID/EPA 10:41: mouth [place] (FISH OIL 15 daily. Medical ORAL) Branch BIOTIN ORAL Yes Take by Uni vers 9- mouth. ity of 10:41: [place] [address] Medical Branch FOLIC ACID Yes Take by [facility] ers ORAL -22 mouth ity of 10:41: daily. [place] [address] Medical Branch MULTIVIT Yes Take by Univer s &MINERALS/F 9-22 mouth. ity of ERROUS FUM 10:41: [place] (MULTI 15 Medical VITAMIN Branch ORAL) METHYLCELLU 0 Yes Univer s LOSE (FIBER 9-22 ity of THERAPY 10:41: [place] [facility]) Medical Branch DOCUSATE 0 Yes Take by [...] - mouth ity of EXTRACT 10:41: daily. [place] (CRANBERRY 15 Medical ORAL) Branch CALCIUM Yes Take by [facility] ORAL - mouth ity of 10:41: daily. [place] 15 Medical Branch DOCOSAHEXAN Yes 1000mg Take 1,000 [facility] OIC 9-22 mg by ity of ACID/EPA 10:41: mouth [place] (FISH OIL 15 daily. Medical ORAL) Branch BIOTIN ORAL Yes Take by Uni vers 06-17 mouth. ity of 10:41: [place] [address] Medical Branch FOLIC ACID Yes Take by Univ ers ORAL 06-17 mouth ity of 10:41: daily. [place] [address] Medical Branch MULTIVIT Yes Take by Univer s &MINERALS/F 06-17 mouth. ity of ERROUS FUM 10:41: [place] (MULTI 15 Medical VITAMIN Branch ORAL) METHYLCELLU Yes Univer s LOSE (FIBER 06-17 ity of THERAPY 10:41: [place] MIS) Medical Branch DOCUSATE Yes Take by [...] - mouth ity of EXTRACT 10:41: daily. [place] (CRANBERRY 15 Medical ORAL) Branch CALCIUM Yes Take by [facility] ORAL -22 mouth ity of 10:41: daily. [place] 15 Medical Branch DOCOSAHEXAN Yes 1000mg Take 1,000 [facility] OIC 9-22 mg by ity of ACID/EPA 10:41: mouth [place] (FISH OIL 15 daily. Medical ORAL) Branch BIOTIN ORAL Yes Take by [facility] vers 9-22 mouth. ity of 10:41: [place] 15 Medical Branch FOLIC ACID Yes Take by Univ ers ORAL - mouth ity of 10:41: daily. [place] 15 Medical Branch MULTIVIT Yes Take by Univer s &MINERALS/F - mouth. ity of ERROUS FUM 10:41: [place] (MULTI 15 Medical VITAMIN Branch ORAL) METHYLCELLU Yes Univer s LOSE (FIBER - ity of THERAPY 10:41: [place] MISC) 15 Medical Branch DOCUSATE Yes Take [...] - mouth ity of EXTRACT 10:41: daily. [place] (CRANBERRY 15 Medical ORAL) Branch CALCIUM Yes Take by [facility] ORAL 9-22 mouth ity of 10:41: daily. [place] 15 Medical Branch DOCOSAHEXAN Yes 1000mg Take 1,000 [facility] OIC 9-22 mg by ity of ACID/EPA 10:41: mouth [place] (FISH OIL 15 daily. Medical ORAL) Branch BIOTIN ORAL Yes Take by Uni vers 9-22 mouth. ity of 10:41: [place] 15 Medical Branch FOLIC ACID Yes Take by Univ ers ORAL 9- mouth ity of 10:41: daily. [place] 15 Medical Branch MULTIVIT Yes Take by Univer s &MINERALS/F - mouth. ity of ERROUS FUM 10:41: [place] (MULTI 15 Medical VITAMIN Branch ORAL) METHYLCELLU Yes Univer s LOSE (FIBER 9-22 ity of THERAPY 10:41: [place] [facility]) 15 Medical Branch DOCUSATE Yes Take by Univer s SODIUM -22 mouth. ity of (COLACE 10:41: [place] ORAL) 15 Medical Branch vitamin C Yes 1000mg Take 1,000 [facility] with derrell 9-22 mg by ity of hips 1,000 10:41: mouth [place] mg tablet 15 daily. Medical Branch cholecalcif Yes 1000U Take 1,000 [facility] edmar, 9-22 Units by ity of vitamin D3, 10:41: mouth [place] 25 mcg 15 daily. Medical (1,000 Branch unit) tablet CRANBERRY Yes [facility] 06-17 mouth ity of EXTRACT 10:41: daily. [place] (CRANBERRY 15 Medical ORAL) Branch CALCIUM Yes Take by [facility] ORAL 06-17 mouth ity of 10:41: daily. [place] 15 Medical Branch DOCOSAHEXAN Yes 1000mg Take 1,000 [facility] OIC 9-22 mg by ity of ACID/EPA 10:41: mouth [place] (FISH OIL 15 daily. Medical ORAL) Branch BIOTIN ORAL Yes Take by Uni vers 06-17 mouth. ity of 10:41: [place] [address] Medical Branch FOLIC ACID Yes Take by Univ ers ORAL 06-17 mouth ity of 10:41: daily. [place] 15 Medical Branch MULTIVIT Yes Take by Univer s &MINERALS/F - mouth. ity of ERROUS FUM 10:41: [place] (MULTI 15 Medical VITAMIN Branch ORAL) METHYLCELLU Yes Univer s LOSE (FIBER -22 ity of THERAPY 10:41: [place] [facility]) 15 Medical Branch DOCUSATE Yes Take by Univer s SODIUM -22 mouth. ity of (COLACE 10:41: [place] ORAL) 15 Medical Branch vitamin C Yes [...] - mouth ity of EXTRACT 10:41: daily. [place] (CRANBERRY 15 Medical ORAL) Branch CALCIUM Yes Take by [facility] ORAL - mouth ity of 10:41: daily. [place] [address] Medical Branch DOCOSAHEXAN Yes 1000mg Take 1,000 [facility] OIC 9-22 mg by ity of ACID/EPA 10:41: mouth [place] (FISH OIL 15 daily. Medical ORAL) Branch BIOTIN ORAL Yes Take by Uni vers - mouth. ity of 10:41: [place] [address] Medical Branch FOLIC ACID Yes Take by Univ ers ORAL - mouth ity of 10:41: daily. [place] [address] Medical Branch MULTIVIT Yes Take by Univer s &MINERALS/F 06-17 mouth. ity of ERROUS FUM 10:41: [place] (MULTI 15 Medical VITAMIN Branch ORAL) METHYLCELLU Yes Univer s LOSE (FIBER 06-17 ity of THERAPY 10:41: [place] MIS) Medical Branch DOCUSATE Yes Take by Univer s SODIUM - mouth. ity of (COLACE 10:41: [place] ORAL) Medical Branch vitamin C Yes 1000mg [...] - mouth ity of EXTRACT 10:41: daily. [place] (CRANBERRY 15 Medical ORAL) Branch CALCIUM Yes Take by [facility] ORAL -22 mouth ity of 10:41: daily. [place] 15 Medical Branch DOCOSAHEXAN Yes 1000mg Take 1,000 [facility] OIC 9-22 mg by ity of ACID/EPA 10:41: mouth [place] (FISH OIL 15 daily. Medical ORAL) Branch BIOTIN ORAL Yes Take by [facility] vers - mouth. ity of 10:41: [place] 15 Medical Branch FOLIC ACID Yes Take by Univ ers ORAL 9- mouth ity of 10:41: daily. [place] 15 Medical Branch MULTIVIT Yes Take by Univer s &MINERALS/F - mouth. ity of ERROUS FUM 10:41: [place] (MULTI 15 Medical VITAMIN Branch ORAL) METHYLCELLU Yes Univer s LOSE (FIBER 9-22 ity of THERAPY 10:41: [place] MIS) 15 Medical Branch DOCUSATE Yes Take by Unive [...] - mouth ity of EXTRACT 10:41: daily. [place] (CRANBERRY 15 Medical ORAL) Branch CALCIUM Yes Take by [facility] ORAL - mouth ity of 10:41: daily. [place] 15 Medical Branch DOCOSAHEXAN Yes 1000mg Take 1,000 [facility] OIC 9-22 mg by ity of ACID/EPA 10:41: mouth [place] (FISH OIL 15 daily. Medical ORAL) Branch BIOTIN ORAL Yes Take by Uni vers - mouth. ity of 10:41: [place] [address] Medical Branch FOLIC ACID Yes Take by Univ ers ORAL 9-22 mouth ity of 10:41: daily. [place] 15 Medical Branch MULTIVIT Yes Take by Univer s &MINERALS/F -22 mouth. ity of ERROUS FUM 10:41: [place] (MULTI 15 Medical VITAMIN Branch ORAL) METHYLCELLU 0 Yes Univer s LOSE (FIBER 9-22 ity of THERAPY 10:41: [place] MIS) Medical Branch DOCUSATE Yes Take by [...] - mouth ity of EXTRACT 10:41: daily. [place] (CRANBERRY 15 Medical ORAL) Branch CALCIUM Yes Take by [facility] ORAL 06-17 mouth ity of 10:41: daily. [place] 15 Medical Branch DOCOSAHEXAN Yes 1000mg Take 1,000 [facility] OIC 9-22 mg by ity of ACID/EPA 10:41: mouth [place] (FISH OIL 15 daily. Medical ORAL) Branch BIOTIN ORAL Yes Take by Uni vers 06-17 mouth. ity of 10:41: [place] Medical Branch FOLIC ACID Yes Take by Univ ers ORAL 06-17 mouth ity of 10:41: daily. [place] 15 Medical Branch MULTIVIT Yes Take by Univer s &MINERALS/F 06-17 mouth. ity of ERROUS FUM 10:41: [place] (MULTI 15 Medical VITAMIN Branch ORAL) METHYLCELLU Yes Univer s LOSE (FIBER 06-17 ity of THERAPY 10:41: [place] [facility]) 15 Medical Branch DOCUSATE Yes Take by [...] - mouth ity of EXTRACT 10:41: daily. [place] (CRANBERRY 15 Medical ORAL) Branch CALCIUM Yes Take by Univers ORAL mouth ity of 10:41: daily. [place] 15 Medical Branch DOCOSAHEXAN Yes 1000mg Take 1,000 [facility] OIC 9-22 mg by ity of ACID/EPA 10:41: mouth [place] (FISH OIL 15 daily. Medical ORAL) Branch BIOTIN ORAL Yes Take by Uni vers 06-17 mouth. ity of 10:41: [place] Medical Branch FOLIC ACID Yes Take by Univ ers ORAL 06-17 mouth ity of 10:41: daily. [place] 15 Medical Branch MULTIVIT Yes Take by Univer s &MINERALS/F 06-17 mouth. ity of ERROUS FUM 10:41: [place] (MULTI 15 Medical VITAMIN Branch ORAL) [facility]CELLU [facility] ity of THERAPY 10:41: [place] MISC) Medical Branch DOCUSATE Yes Take by Univer s SODIUM 06-17 mouth. ity of (COLACE 10:41: [place] ORAL) Medical Branch vitamin C Yes 1000mg Take 1,000 [facility] with derrell 9-22 mg by ity of hips 1,000 10:41: mouth [place] mg tablet 15 daily. Medical Branch cholecalcif Yes 1000U Take 1,000 [facility] edmar, 9- Units by ity of vitamin D3, 10:41: mouth [place] 25 mcg 15 daily. Medical (1,000 Branch unit) tablet CRANBERRY Yes Take by [facility] rs FRUIT 06-17 mouth ity of EXTRACT 10:41: daily. [place] (CRANBERRY 15 Medical ORAL) Branch CALCIUM Yes Take by [facility] ORAL 06-17 mouth ity of 10:41: daily. [place] Medical Branch DOCOSAHEXAN Yes 1000mg Take 1,000 [facility] OIC 9-22 mg by ity of ACID/EPA 10:41: mouth [place] (FISH OIL 15 daily. Medical ORAL) Branch BIOTIN ORAL Yes Take by Uni vers 06-17 mouth. ity of 10:41: [place] [address] Medical Branch FOLIC ACID Yes Take by Univ ers ORAL - mouth ity of 10:41: daily. [place] [address] Medical Branch MULTIVIT Yes Take by Univer s &MINERALS/F 06-17 mouth. ity of ERROUS FUM 10:41: [place] (MULTI 15 Medical VITAMIN Branch ORAL) METHYLCELLU 2021-0 Yes Univer s LOSE (FIBER 9-22 ity of THERAPY 10:41: [place] [facility]) 15 Medical Branch vitamin C 0 Yes [...] - mouth ity of EXTRACT 10:41: daily. [place] (CRANBERRY 15 Medical ORAL) Branch CALCIUM Yes Take by [facility] ORAL - mouth ity of 10:41: daily. [place] [address] Medical Branch DOCOSAHEXAN Yes 1000mg Take 1,000 [facility] OIC 9-22 mg by ity of ACID/EPA 10:41: mouth [place] (FISH OIL 15 daily. Medical ORAL) Branch BIOTIN ORAL Yes Take by Uni vers - mouth. ity of 10:41: [place] [address] Medical Branch FOLIC ACID Yes Take by Univ ers ORAL - mouth ity of 10:41: daily. [place] [address] Medical Branch MULTIVIT Yes Take by [facility] s &MINERALS/F - mouth. ity of ERROUS FUM 10:41: [place] (MULTI 15 Medical VITAMIN Branch ORAL) METHYLCELLU 2021-0 Yes Univer s LOSE (FIBER 9-22 ity of THERAPY 10:41: [place] [facility]) Medical Branch vitamin C 0 Yes 1000mg [...] -22 mouth ity of EXTRACT 10:41: daily. [place] (CRANBERRY 15 Medical ORAL) Branch CALCIUM 2022-0 Yes Take by [facility] ORAL 9-22 mouth ity of 10:41: daily. [place] 15 Medical Branch DOCOSAHEXAN Yes 1000mg Take 1,000 [facility] OIC 9-22 mg by ity of ACID/EPA 10:41: mouth [place] (FISH OIL 15 daily. Medical ORAL) Branch BIOTIN ORAL Yes Take by Uni vers 9-22 mouth. ity of 10:41: [place] 15 Medical Branch FOLIC ACID 0 Yes Take by Univ ers ORAL 9- mouth ity of 10:41: daily. [place] 15 Medical Branch MULTIVIT Yes Take by Univer s &MINERALS/F - mouth. ity of ERROUS FUM 10:41: [place] (MULTI 15 Medical VITAMIN Branch ORAL) METHYLCELLU Yes Univer s LOSE (FIBER - ity of THERAPY 10:41: [place] [address] Medical Branch vitamin C Yes 1000mg Take [...] - mouth ity of EXTRACT 10:41: daily. [place] (CRANBERRY 15 Medical ORAL) Branch CALCIUM Yes Take by [facility] ORAL 9-22 mouth ity of 10:41: daily. [place] Medical Branch DOCOSAHEXAN Yes 1000mg Take 1,000 [facility] OIC 9-22 mg by ity of ACID/EPA 10:41: mouth [place] (FISH OIL 15 daily. Medical ORAL) Branch BIOTIN ORAL Yes Take by Uni vers 9-22 mouth. ity of 10:41: [place] [address] Medical Branch FOLIC ACID 0 Yes Take by Univ ers ORAL 9-22 mouth ity of 10:41: daily. [place] [address] Medical Branch MULTIVIT Yes Take by Univer s &MINERALS/F -22 mouth. ity of ERROUS FUM 10:41: [place] (MULTI 15 Medical VITAMIN Branch ORAL) METHYLCELLU 2022-0 Yes Univer s LOSE (FIBER 9-22 ity of THERAPY 10:41: [place] [facility]) 15 Medical Branch vitamin C Yes 1000mg [...] 06-17 mouth ity of EXTRACT 10:41: daily. [place] (CRANBERRY 15 Medical ORAL) Branch CALCIUM Yes Take by [facility] ORAL 06-17 mouth ity of 10:41: daily. [place] 15 Medical Branch DOCOSAHEXAN Yes 1000mg Take 1,000 [facility] OIC 9-22 mg by ity of ACID/EPA 10:41: mouth [place] (FISH OIL 15 daily. Medical ORAL) Branch BIOTIN ORAL Yes Take by Uni vers 06-17 mouth. ity of 10:41: [place] [address] Medical Branch FOLIC ACID Yes Take by Univ ers ORAL 06-17 mouth ity of 10:41: daily. [place] [address] Medical Branch MULTIVIT Yes Take by Univer s &MINERALS/F 06-17 mouth. ity of ERROUS FUM 10:41: [place] (MULTI 15 Medical VITAMIN Branch ORAL) METHYLCELLU 0 Yes Univer s LOSE (FIBER - ity of THERAPY 10:41: [place] [facility]) 15 Medical Branch vitamin C Yes 1000mg [...] - mouth ity of EXTRACT 10:41: daily. [place] (CRANBERRY 15 Medical ORAL) Branch CALCIUM Yes Take by Univers ORAL - mouth ity of 10:41: daily. [place] 15 Medical Branch DOCOSAHEXAN Yes 1000mg Take 1,000 [facility] OIC 9-22 mg by ity of ACID/EPA 10:41: mouth [place] (FISH OIL 15 daily. Medical ORAL) Branch BIOTIN ORAL Yes Take by Uni vers 9-22 mouth. ity of 10:41: [place] 15 Medical Branch FOLIC ACID Yes Take by Univ ers ORAL 9-22 mouth ity of 10:41: daily. [place] 15 Medical Branch MULTIVIT Yes Take by Univer s &MINERALS/F - mouth. ity of ERROUS FUM 10:41: [place] (MULTI 15 Medical VITAMIN Branch ORAL) METHYLCELLU Yes Univer s LOSE (FIBER 06-17 ity of THERAPY 10:41: [place] [facility]) Medical Branch vitamin C Yes 1000mg Take [...] - mouth ity of EXTRACT 10:41: daily. [place] (CRANBERRY 15 Medical ORAL) Branch CALCIUM Yes Take by Univers ORAL 9- mouth ity of 10:41: daily. [place] Medical Branch DOCOSAHEXAN Yes 1000mg Take 1,000 [facility] OIC 9-22 mg by ity of ACID/EPA 10:41: mouth [place] (FISH OIL 15 daily. Medical ORAL) Branch BIOTIN ORAL Yes Take by Uni vers 9-22 mouth. ity of 10:41: [place] [address] Medical Branch FOLIC ACID Yes Take by Univ ers ORAL 9-22 mouth ity of 10:41: daily. [place] [address] Medical Branch MULTIVIT Yes Take by Univer s &MINERALS/F -22 mouth. ity of ERROUS FUM 10:41: [place] (MULTI 15 Medical VITAMIN Branch ORAL) METHYLCELLU 0 Yes Univer s LOSE (FIBER - ity of THERAPY 10:41: [place] [facility]) 15 Medical Branch vitamin C Yes 1000mg [...] 06-17 mouth ity of EXTRACT 10:41: daily. [place] (CRANBERRY 15 Medical ORAL) Branch CALCIUM Yes Take by Univers ORAL 06-17 mouth ity of 10:41: daily. [place] [address] Medical Branch DOCOSAHEXAN Yes 1000mg Take 1,000 [facility] OIC 9-22 mg by ity of ACID/EPA 10:41: mouth [place] (FISH OIL 15 daily. Medical ORAL) Branch BIOTIN ORAL Yes Take by Uni vers 06-17 mouth. ity of 10:41: [place] [address] Medical Branch FOLIC ACID Yes Take by Univ ers ORAL 06-17 mouth ity of 10:41: daily. [place] [address] Medical Branch MULTIVIT Yes Take by Univer s &MINERALS/F 06-17 mouth. ity of ERROUS FUM 10:41: [place] (MULTI 15 Medical VITAMIN Branch ORAL) METHYLCELLU Yes Univer s LOSE (FIBER 06-17 ity of THERAPY 10:41: [facility] 15 Medical Branch vitamin C Yes [...] - mouth ity of EXTRACT 10:41: daily. [place] (CRANBERRY 15 Medical ORAL) Branch CALCIUM Yes Take by Univers ORAL - mouth ity of 10:41: daily. [place] [address] Medical Branch DOCOSAHEXAN Yes 1000mg Take 1,000 [facility] OIC 9-22 mg by ity of ACID/EPA 10:41: mouth [place] (FISH OIL 15 daily. Medical ORAL) Branch BIOTIN ORAL Yes Take by Uni vers - mouth. ity of 10:41: [place] 15 Medical Branch FOLIC ACID 0 Yes Take by Univ ers ORAL - mouth ity of 10:41: daily. [place] 15 Medical Branch MULTIVIT Yes Take by Univer s &MINERALS/F - mouth. ity of ERROUS FUM 10:41: [place] (MULTI 15 Medical VITAMIN Branch ORAL) METHYLCELLU 0 Yes Univer s LOSE (FIBER 9-22 ity of THERAPY 10:41: [place] [facility]) 15 Medical Branch vitamin C Yes 1000mg [...] 06-17 mouth ity of EXTRACT 10:41: daily. [place] (CRANBERRY 15 Medical ORAL) Branch CALCIUM Yes Take by Univers ORAL - mouth ity of 10:41: daily. [place] 15 Medical Branch DOCOSAHEXAN Yes 1000mg Take 1,000 [facility] OIC 9-22 mg by ity of ACID/EPA 10:41: mouth [place] (FISH OIL 15 daily. Medical ORAL) Branch BIOTIN ORAL Yes Take by Uni vers - mouth. ity of 10:41: [place] 15 Medical Branch FOLIC ACID 0 Yes Take by Univ ers ORAL - mouth ity of 10:41: daily. [place] 15 Medical Branch MULTIVIT 0 Yes Take by Univer s &MINERALS/F - mouth. ity of ERROUS FUM 10:41: [place] (MULTI 15 Medical VITAMIN Branch ORAL) METHYLCELLU 0 Yes Univer s LOSE (FIBER 9-22 ity of THERAPY 10:41: [place] [facility]) 15 Medical Branch vitamin C 0 Yes [...] 06-17 mouth ity of EXTRACT 10:41: daily. [place] (CRANBERRY 15 Medical ORAL) Branch CALCIUM Yes Take by Univers ORAL 06-17 mouth ity of 10:41: daily. [place] 15 Medical Branch DOCOSAHEXAN Yes 1000mg Take 1,000 [facility] OIC 9-22 mg by ity of ACID/EPA 10:41: mouth [place] (FISH OIL 15 daily. Medical ORAL) Branch BIOTIN ORAL Yes Take by Uni vers 06-17 mouth. ity of 10:41: [place] [address] Medical Branch FOLIC ACID Yes Take by Univ ers ORAL 06-17 mouth ity of 10:41: daily. [place] [address] Medical Branch MULTIVIT Yes Take by Univer s &MINERALS/F 06-17 mouth. ity of ERROUS FUM 10:41: [place] (MULTI 15 Medical VITAMIN Branch ORAL) [facility]U [facility] ity of THERAPY 10:41: [place] [facility]) Medical Branch vitamin C Yes 1000mg Take [...] - mouth ity of EXTRACT 10:41: daily. [place] (CRANBERRY 15 Medical ORAL) Branch CALCIUM 0 Yes Take by Univers ORAL - mouth ity of 10:41: daily. [place] Medical Branch DOCOSAHEXAN Yes 1000mg Take 1,000 [facility] OIC 9-22 mg by ity of ACID/EPA 10:41: mouth [place] (FISH OIL 15 daily. Medical ORAL) Branch BIOTIN ORAL Yes Take by Uni vers -22 mouth. ity of 10:41: [place] 15 Medical Branch FOLIC ACID 0 Yes Take by Univ ers ORAL - mouth ity of 10:41: daily. [place] 15 Medical Branch MULTIVIT 0 Yes Take by Univer s &MINERALS/F 06-17 mouth. ity of ERROUS FUM 10:41: [place] (MULTI 15 Medical VITAMIN Branch ORAL) METHYLCELLU 0 Yes Univer s LOSE (FIBER 9- ity of THERAPY 10:41: [place] [facility]) 15 Medical Branch vitamin C 0 Yes [...] 06-17 mouth ity of EXTRACT 10:41: daily. [place] (CRANBERRY 15 Medical ORAL) Branch CALCIUM Yes Take by Univers ORAL 06-17 mouth ity of 10:41: daily. [place] 15 Medical Branch DOCOSAHEXAN Yes 1000mg Take 1,000 [facility] OIC 9-22 mg by ity of ACID/EPA 10:41: mouth [place] (FISH OIL 15 daily. Medical ORAL) Branch BIOTIN ORAL Yes Take by Uni vers - mouth. ity of 10:41: [place] 15 Medical Branch FOLIC ACID 0 Yes Take by Univ ers ORAL - mouth ity of 10:41: daily. [place] 15 Medical Branch MULTIVIT 0 Yes Take by Univer s &MINERALS/F - mouth. ity of ERROUS FUM 10:41: [place] (MULTI 15 Medical VITAMIN Branch ORAL) METHYLCELLU 0 Yes Univer s LOSE (FIBER 9-22 ity of THERAPY 10:41: [place] [facility]) 15 Medical Branch vitamin C 0 Yes [...] 06-17 mouth ity of EXTRACT 10:41: daily. [place] (CRANBERRY 15 Medical ORAL) Branch CALCIUM Yes Take by Univers ORAL - mouth ity of 10:41: daily. [place] 15 Medical Branch DOCOSAHEXAN Yes 1000mg Take 1,000 [facility] OIC 9-22 mg by ity of ACID/EPA 10:41: mouth [place] (FISH OIL 15 daily. Medical ORAL) Branch BIOTIN ORAL Yes Take by Uni vers 06-17 mouth. ity of 10:41: [place] [address] Medical Branch FOLIC ACID Yes Take by Univ ers ORAL 06-17 mouth ity of 10:41: daily. [place] [address] Medical Branch MULTIVIT Yes Take by Univer s &MINERALS/F 06-17 mouth. ity of ERROUS FUM 10:41: [place] (MULTI 15 Medical VITAMIN Branch ORAL) METHYLCELLU Yes Univer s LOSE (FIBER 06-17 ity of THERAPY 10:41: [place] [facility]) Medical Branch vitamin C Yes 1000mg Take [...] - mouth ity of EXTRACT 10:41: daily. [place] (CRANBERRY 15 Medical ORAL) Branch CALCIUM Yes Take by Univers ORAL - mouth ity of 10:41: daily. [place] 15 Medical Branch DOCOSAHEXAN Yes 1000mg Take 1,000 [facility] OIC 9-22 mg by ity of ACID/EPA 10:41: mouth [place] (FISH OIL 15 daily. Medical ORAL) Branch BIOTIN ORAL Yes Take by Uni vers 06-17 mouth. ity of 10:41: [place] 15 Medical Branch FOLIC ACID 0 Yes Take by Univ ers ORAL - mouth ity of 10:41: daily. [place] 15 Medical Branch MULTIVIT 0 Yes Take by Univer s &MINERALS/F 06-17 mouth. ity of ERROUS FUM 10:41: [place] (MULTI 15 Medical VITAMIN Branch ORAL) METHYLCELLU 0 Yes Univer s LOSE (FIBER - ity of THERAPY 10:41: [place] [facility]) 15 Medical Branch vitamin C Yes 1000mg Take 1,000 [facility] with derrell 9-22 mg by ity of hips 1,000 10:41: mouth [place] mg tablet 15 daily. Medical Branch cholecalcif 0 Yes 1000U Take 1,000 [facility] edmar, 9-22 Units by ity of vitamin D3, 10:41: mouth [place] 25 mcg 15 daily. Medical (1,000 Branch unit) tablet CRANBERRY Yes Take by [facility] rs FRUIT 06-17 mouth ity of EXTRACT 10:41: daily. [place] (CRANBERRY 15 Medical ORAL) Branch CALCIUM Yes Take by Univers ORAL 06-17 mouth ity of 10:41: daily. [place] 15 Medical Branch DOCOSAHEXAN Yes 1000mg Take 1,000 [facility] OIC 9-22 mg by ity of ACID/EPA 10:41: mouth [place] (FISH OIL 15 daily. Medical ORAL) Branch BIOTIN ORAL Yes Take by Uni vers - mouth. ity of 10:41: [place] [address] Medical Branch FOLIC ACID 0 Yes Take by Univ ers ORAL - mouth ity of 10:41: daily. [place] [address] Medical Branch MULTIVIT 0 Yes Take by Univer s &MINERALS/F - mouth. ity of ERROUS FUM 10:41: [place] (MULTI 15 Medical VITAMIN Branch ORAL) METHYLCELLU 2021-0 Yes Univer s LOSE (FIBER 9-22 ity of THERAPY 10:41: [place] [facility]) Medical Branch vitamin C 0 Yes 1000mg [...] - mouth ity of EXTRACT 10:41: daily. [place] (CRANBERRY 15 Medical ORAL) Branch CALCIUM Yes Take by Univers ORAL - mouth ity of 10:41: daily. [place] 15 Medical Branch DOCOSAHEXAN Yes 1000mg Take 1,000 [facility] OIC 9-22 mg by ity of ACID/EPA 10:41: mouth [place] (FISH OIL 15 daily. Medical ORAL) Branch BIOTIN ORAL Yes Take by Uni vers 06-17 mouth. ity of 10:41: [place] [address] Medical Branch FOLIC ACID Yes Take by Univ ers ORAL 06-17 mouth ity of 10:41: daily. [place] [address] Medical Branch MULTIVIT Yes Take by Univer s &MINERALS/F 06-17 mouth. ity of ERROUS FUM 10:41: [place] (MULTI 15 Medical VITAMIN Branch ORAL) METHYLCELLU Yes Univer s LOSE (FIBER 06-17 ity of THERAPY 10:41: [place] [facility]IS) Medical Branch vitamin C Yes 1000mg [...] - mouth ity of EXTRACT 10:41: daily. [place] (CRANBERRY 15 Medical ORAL) Branch CALCIUM Yes Take by Univers ORAL - mouth ity of 10:41: daily. [place] 15 Medical Branch DOCOSAHEXAN Yes 1000mg Take 1,000 [facility] OIC 9-22 mg by ity of ACID/EPA 10:41: mouth [place] (FISH OIL 15 daily. Medical ORAL) Branch BIOTIN ORAL Yes Take by Uni vers - mouth. ity of 10:41: [place] [address] Medical Branch FOLIC ACID Yes Take by Univ ers ORAL - mouth ity of 10:41: daily. [place] 15 Medical Branch MULTIVIT Yes Take by Univer s &MINERALS/F - mouth. ity of ERROUS FUM 10:41: [place] (MULTI 15 Medical VITAMIN Branch ORAL) METHYLCELLU 0 Yes Univer s LOSE (FIBER - ity of THERAPY 10:41: [place] [facility]) 15 Medical Branch vitamin C Yes 1000mg Take 1,000 [facility] with derrell 9-22 mg by ity of hips 1,000 10:41: mouth [place] mg tablet 15 daily. Medical Branch cholecalcif 0 Yes 1000U Take 1,000 [facility] edmar, 9-22 Units by ity of vitamin D3, 10:41: mouth [place] 25 mcg 15 daily. Medical (1,000 Branch unit) tablet CRANBERRY Yes [facility] 06-17 mouth ity of EXTRACT 10:41: daily. [place] (CRANBERRY 15 Medical ORAL) Branch CALCIUM Yes Take by Univers ORAL - mouth ity of 10:41: daily. [place] 15 Medical Branch DOCOSAHEXAN Yes 1000mg Take 1,000 [facility] OIC 9-22 mg by ity of ACID/EPA 10:41: mouth [place] (FISH OIL 15 daily. Medical ORAL) Branch BIOTIN ORAL Yes Take by Uni vers - mouth. ity of 10:41: [place] [address] Medical Branch FOLIC ACID Yes Take by Univ ers ORAL - mouth ity of 10:41: daily. [place] 15 Medical Branch MULTIVIT Yes Take by Univer s &MINERALS/F - mouth. ity of ERROUS FUM 10:41: [place] (MULTI 15 Medical VITAMIN Branch ORAL) METHYLCELLU 0 Yes Univer s LOSE (FIBER 9-22 ity of THERAPY 10:41: [place] [facility]) Medical Branch vitamin C 0 Yes 1000mg [...] 06-17 mouth ity of EXTRACT 10:41: daily. [place] (CRANBERRY 15 Medical ORAL) Branch CALCIUM Yes Take by Univers ORAL - mouth ity of 10:41: daily. [place] [address] Medical Branch DOCOSAHEXAN Yes 1000mg Take 1,000 [facility] OIC 9-22 mg by ity of ACID/EPA 10:41: mouth [place] (FISH OIL 15 daily. Medical ORAL) Branch BIOTIN ORAL Yes Take by Uni vers 06-17 mouth. ity of 10:41: [place] [address] Medical Branch FOLIC ACID Yes Take by Univ ers ORAL 06-17 mouth ity of 10:41: daily. [place] [address] Medical Branch MULTIVIT Yes Take by Univer s &MINERALS/F 06-17 mouth. ity of ERROUS FUM 10:41: [place] (MULTI 15 Medical VITAMIN Branch ORAL) METHYLCELLU Yes Univer s LOSE (FIBER 06-17 ity of THERAPY 10:41: [place] [facility]) Medical Branch vitamin C Yes 1000mg Take [...] 06-17 mouth ity of EXTRACT 10:41: daily. [place] (CRANBERRY 15 Medical ORAL) Branch CALCIUM Yes Take by Univers ORAL - mouth ity of 10:41: daily. [place] [address] Medical Branch DOCOSAHEXAN Yes 1000mg Take 1,000 [facility] OIC 9-22 mg by ity of ACID/EPA 10:41: mouth [place] (FISH OIL 15 daily. Medical ORAL) Branch BIOTIN ORAL Yes Take by Uni vers - mouth. ity of 10:41: [place] [address] Medical Branch FOLIC ACID Yes Take by Univ ers ORAL - mouth ity of 10:41: daily. [place] [address] Medical Branch MULTIVIT 2022-0 Yes Take by Univer s &MINERALS/F - mouth. ity of ERROUS FUM 10:41: [place] (MULTI 15 Medical VITAMIN Branch ORAL) METHYLCELLU 0 Yes Univer s LOSE (FIBER - ity of THERAPY 10:41: [place] [facility]) 15 Medical Branch vitamin C Yes 1000mg [...] - mouth ity of EXTRACT 10:41: daily. [place] (CRANBERRY 15 Medical ORAL) Branch CALCIUM Yes Take by Univers ORAL - mouth ity of 10:41: daily. [place] 15 Medical Branch DOCOSAHEXAN Yes 1000mg Take 1,000 [facility] OIC 9-22 mg by ity of ACID/EPA 10:41: mouth [place] (FISH OIL 15 daily. Medical ORAL) Branch BIOTIN ORAL Yes Take by Uni vers - mouth. ity of 10:41: [place] [address] Medical Branch FOLIC ACID Yes Take by Univ ers ORAL - mouth ity of 10:41: daily. [place] [address] Medical Branch MULTIVIT Yes Take by Univer s &MINERALS/F - mouth. ity of ERROUS FUM 10:41: [place] (MULTI 15 Medical VITAMIN Branch ORAL) METHYLCELLU 0 Yes Univer s LOSE (FIBER 9-22 ity of THERAPY 10:41: [place] [facility]) Medical Branch vitamin C Yes 1000mg Take [...] -22 mouth ity of EXTRACT 10:41: daily. [place] (CRANBERRY 15 Medical ORAL) Branch CALCIUM Yes Take by Univers ORAL 9- mouth ity of 10:41: daily. [place] [address] Medical Branch DOCOSAHEXAN Yes 1000mg Take 1,000 [facility] OIC 9-22 mg by ity of ACID/EPA 10:41: mouth [place] (FISH OIL 15 daily. Medical ORAL) Branch BIOTIN ORAL Yes Take by Uni vers 06-17 mouth. ity of 10:41: [place] [address] Medical Branch FOLIC ACID Yes Take by Univ ers ORAL 06-17 mouth ity of 10:41: daily. [place] [address] Medical Branch MULTIVIT Yes Take by Univer s &MINERALS/F 06-17 mouth. ity of ERROUS FUM 10:41: [place] (MULTI 15 Medical VITAMIN Branch ORAL) METHYLCELLU Yes [facility]-17 ity of THERAPY 10:41: [place] [facility]) Medical Branch vitamin C Yes 1000mg Take [...] 06-17 mouth ity of EXTRACT 10:41: daily. [place] (CRANBERRY 15 Medical ORAL) Branch CALCIUM Yes Take by Univers ORAL 9- mouth ity of 10:41: daily. [place] [address] Medical Branch DOCOSAHEXAN Yes 1000mg Take 1,000 [facility] OIC 9-22 mg by ity of ACID/EPA 10:41: mouth [place] (FISH OIL 15 daily. Medical ORAL) Branch BIOTIN ORAL Yes Take by Uni vers - mouth. ity of 10:41: [place] [address] Medical Branch FOLIC ACID Yes Take by Univ ers ORAL - mouth ity of 10:41: daily. [place] [address] Medical Branch MULTIVIT Yes Take by Univer s &MINERALS/F 06-17 mouth. ity of ERROUS FUM 10:41: [place] (MULTI 15 Medical VITAMIN Branch ORAL) METHYLCELLU 2021-0 Yes Univer s LOSE (FIBER 9-22 ity of THERAPY 10:41: [place] [facility]) 15 Medical Branch vitamin C 0 Yes [...] - mouth ity of EXTRACT 10:41: daily. [place] (CRANBERRY 15 Medical ORAL) Branch CALCIUM Yes Take by Univers ORAL - mouth ity of 10:41: daily. [place] 15 Medical Branch DOCOSAHEXAN Yes 1000mg Take 1,000 [facility] OIC 9-22 mg by ity of ACID/EPA 10:41: mouth [place] (FISH OIL 15 daily. Medical ORAL) Branch BIOTIN ORAL 0 Yes Take by Uni vers - mouth. ity of 10:41: [place] [address] Medical Branch FOLIC ACID 0 Yes Take by Univ ers ORAL - mouth ity of 10:41: daily. [place] [address] Medical Branch MULTIVIT Yes Take by Univer s &MINERALS/F - mouth. ity of ERROUS FUM 10:41: [place] (MULTI 15 Medical VITAMIN Branch ORAL) METHYLCELLU 2021-0 Yes Univer s LOSE (FIBER 9-22 ity of THERAPY 10:41: [place] [facility]) Medical Branch vitamin C 0 Yes 1000mg [...] - mouth ity of EXTRACT 10:41: daily. [place] (CRANBERRY 15 Medical ORAL) Branch CALCIUM 2022-0 Yes Take by Univers ORAL - mouth ity of 10:41: daily. [place] Medical Branch DOCOSAHEXAN Yes 1000mg Take 1,000 [facility] OIC 9-22 mg by ity of ACID/EPA 10:41: mouth [place] (FISH OIL 15 daily. Medical ORAL) Branch BIOTIN ORAL Yes Take by Uni vers 06-17 mouth. ity of 10:41: [place] [address] Medical Branch FOLIC ACID Yes Take by [facility] ers ORAL 06-17 mouth ity of 10:41: daily. [place] [address] Medical Branch MULTIVIT Yes Take by [facility] s &MINERALS/F 06-17 mouth. ity of ERROUS FUM 10:41: [place] (MULTI 15 Medical VITAMIN Branch ORAL) METHYLCELLU Yes [facility] s LOSE (FIBER 06-17 ity of THERAPY 10:41: [place] [facility] [facility] Branch vitamin C Yes 1000mg Take 1,000 [facility] with derrell 9-22 mg by ity of hips 1,000 10:41: mouth [place] mg tablet 15 daily. Medical Branch cholecalcif Yes 1000U Take 1,000 [facility] edmar, 9-22 Units by ity of vitamin D3, 10:41: mouth [place] 25 mcg 15 daily. Medical (1,000 Branch unit) tablet CRANBERRY Yes Take by [facility] rs FRUIT 06-17 mouth ity of EXTRACT 10:41: daily. [place] (CRANBERRY 15 Medical ORAL) Branch CALCIUM Yes Take by Univers ORAL 06-17 mouth ity of 10:41: daily. [place] [address] Medical Branch DOCOSAHEXAN Yes 1000mg Take 1,000 [facility] OIC 9-22 mg by ity of ACID/EPA 10:41: mouth [place] (FISH OIL 15 daily. Medical ORAL) Branch BIOTIN ORAL Yes Take by Uni vers 06-17 mouth. ity of 10:41: [place] [address] Medical Branch SUMAtriptan Yes [id number] 50mg Take 1 Univers 50 mg 9-22 tablet by ity of tablet 00:00: mouth as [place] 00 needed for Medical Migraine. Branch topiramate Yes [id number] 75mg Take 3 Univers 25 mg 9-22 tablets by ity of tablet 00:00: mouth in [place] 00 the Medical morning Branch and 3 tablets in the evening. SUMAtriptan 2022-0 Yes [id number] 50mg Take 1 [facility] 50 mg 9-22 tablet by ity of tablet 00:00: mouth as [place] 00 needed for Medical Migraine. Branch topiramate 2022-0 Yes [id number] 75mg Take 3 [facility] 25 mg 9-22 tablets by ity of tablet 00:00: mouth in [place] 00 the Medical morning Branch and 3 tablets in the evening. SUMAtriptan 2022-0 Yes [id number] 50mg Take 1 [facility] 50 mg 9-22 tablet by ity of tablet 00:00: mouth as [place] 00 needed for Medical Migraine. Branch topiramate 2022-0 Yes [id number] 75mg Take 3 [facility] 25 mg 9-22 tablets by ity of tablet 00:00: mouth in [place] 00 the Medical morning Branch and 3 tablets in the evening. SUMAtriptan 2022-0 Yes [id number] 50mg Take 1 [facility] 50 mg 9-22 tablet by ity of tablet 00:00: mouth as [place] 00 needed for Medical Migraine. Branch topiramate 2022-0 Yes [id number] 75mg Take 3 [facility] 25 mg 9-22 tablets by ity of tablet 00:00: mouth in [place] 00 the Medical morning Branch and 3 tablets in the evening. topiramate 2022-0 Yes [id number] 75mg Take 3 [facility] 25 mg 9-22 tablets by ity of tablet 00:00: mouth in [place] 00 the Medical morning Branch and 3 tablets in the evening. topiramate 2022-0 Yes [id number] 75mg Take 3 [facility] 25 mg 9-22 tablets by ity of tablet 00:00: mouth in [place] 00 the Medical morning Branch and 3 tablets in the evening. topiramate 2022-0 Yes [id number] 75mg Take 3 [facility] 25 mg 9-22 tablets by ity of tablet 00:00: mouth in [place] 00 the Medical morning Branch and 3 tablets in the evening. topiramate 2022-0 Yes [id number] 75mg Take 3 [facility] 25 mg 9-22 tablets by ity of tablet 00:00: mouth in [place] 00 the Medical morning Branch and 3 tablets in the evening. topiramate 2022-0 Yes [id number] 75mg Take 3 [facility] 25 mg 9-22 tablets by ity of tablet 00:00: mouth in [place] [id number] the Medical morning Branch and 3 tablets in the evening. topiramate 2021-0 Yes [id number] 75mg Take 3 [facility] 25 mg 9-22 tablets by ity of tablet 00:00: mouth in [place] 00 the Medical morning Branch and 3 tablets in the evening. topiramate 2021-0 2021- No [id number] 75mg Take 3 [facility] 25 mg 9-22 10-13 tablets by ity of tablet 00:00: 00:00 mouth in [place] 00 :00 the Medical morning Branch and 3 tablets in the evening. SUMAtriptan 2021- No [id number] 50mg Take 1 [facility] 50 mg 9-22 09-30 tablet by ity of tablet 00:00: 00:00 mouth as [place] 00 :00 needed for Medical Migraine. Branch pantoprazol Yes [id number] 40mg Take 1 Univers e 40 mg EC 9-16 tablet by ity of tablet 00:00: mouth in [place] 00 the Medical morning. Branch Simethicone 0 Yes [id number] 125mg Take 1 [facility] 125 mg 9-16 capsule by ity of 00:00: mouth [place] 00 after Medical meals and Branch at bedtime as needed for Gas (Per bowel prep). pantoprazol 0 Yes [id number] 40mg Take 1 [facility] e 40 mg EC 9-16 tablet by ity of tablet 00:00: mouth in [place] 00 the Medical morning. Branch Simethicone 2021-0 Yes [id number] 125mg Take 1 [facility] 125 mg 9-16 capsule by ity of 00:00: mouth [place] 00 after Medical meals and Branch at bedtime as needed for Gas (Per bowel prep). pantoprazol 2021-0 Yes [id number] 40mg Take 1 [facility] e 40 mg EC 9-16 tablet by ity of tablet 00:00: mouth in [place] 00 the Medical morning. Branch Simethicone 2021-0 Yes [id number] 125mg Take 1 [facility] 125 mg 9-16 capsule by ity of 00:00: mouth [place] 00 after Medical meals and Branch at bedtime as needed for Gas (Per bowel prep). pantoprazol 2021-0 Yes [id number] 40mg Take 1 [facility] e 40 mg EC 9-16 tablet by ity of tablet 00:00: mouth in [place] 00 the Medical morning. Branch Simethicone 2021-0 Yes [id number] 125mg Take 1 [facility] 125 mg 9-16 capsule by ity of 00:00: mouth [place] 00 after Medical meals and Branch at bedtime as needed for Gas (Per bowel prep). pantoprazol 0 Yes [id number] 40mg Take 1 [facility] e 40 mg EC 9-16 tablet by ity of tablet 00:00: mouth in [place] 00 the Medical morning. Branch Simethicone 0 Yes [id number] 125mg Take 1 [facility] 125 mg 9-16 capsule by ity of 00:00: mouth [place] 00 after Medical meals and Branch at bedtime as needed for Gas (Per bowel prep). pantoprazol Yes [id number] 40mg Take 1 [facility] e 40 mg EC 9-16 tablet by ity of tablet 00:00: mouth in [place] 00 the Medical morning. Branch Simethicone 0 Yes [id number] 125mg Take 1 [facility] 125 mg 9-16 capsule by ity of 00:00: mouth [place] 00 after Medical meals and Branch at bedtime as needed for Gas (Per bowel prep). pantoprazol Yes [id number] 40mg Take 1 [facility] e 40 mg EC 9-16 tablet by ity of tablet 00:00: mouth in [place] 00 the Medical morning. Branch Simethicone 0 Yes [id number] 125mg Take 1 [facility] 125 mg 9-16 capsule by ity of 00:00: mouth [place] 00 after Medical meals and Branch at bedtime as needed for Gas (Per bowel prep). pantoprazol 2021-0 Yes [id number] 40mg Take 1 [facility] e 40 mg EC 9-16 tablet by ity of tablet 00:00: mouth in [place] 00 the Medical morning. Branch Simethicone 0 Yes [id number] 125mg Take 1 [facility] 125 mg 9-16 capsule by ity of 00:00: mouth [place] 00 after Medical meals and Branch at bedtime as needed for Gas (Per bowel prep). pantoprazol 2021-0 Yes [id number] 40mg Take 1 [facility] e 40 mg EC 9-16 tablet by ity of tablet 00:00: mouth in [place] 00 the Medical morning. Branch Simethicone 0 Yes [id number] 125mg Take 1 [facility] 125 mg 9-16 capsule by [facility] 00:00: mouth [place] 00 after Medical meals and Branch at bedtime as needed for Gas (Per bowel prep). pantoprazol 2021-0 Yes [id number] 40mg Take 1 [facility] e 40 mg EC 9-16 tablet by [facility] tablet 00:00: mouth in [place] 00 the Medical morning. Branch Simethicone 2021-0 Yes [id number] 125mg Take 1 [facility] 125 mg 9-16 capsule by [facility] 00:00: mouth [place] 00 after Medical meals and Branch at bedtime as needed for Gas (Per bowel prep). pantoprazol 2021-0 Yes [id number] 40mg Take 1 [facility] e 40 mg EC 9-16 tablet by [facility] tablet 00:00: mouth in [place] 00 the Medical morning. Branch Simethicone 2021-0 Yes [id number] 125mg Take 1 [facility] 125 mg 9-16 capsule by [facility] 00:00: mouth [place] 00 after Medical meals and Branch at bedtime as needed for Gas (Per bowel prep). pantoprazol 2021-0 Yes [id number] 40mg Take 1 [facility] e 40 mg EC 9-16 tablet by [facility] tablet 00:00: mouth in [place] 00 the Medical morning. Branch Simethicone 0 Yes [id number] 125mg Take 1 [facility] 125 mg 9-16 capsule by [facility] of 00:00: mouth [place] 00 after Medical meals and Branch at bedtime as needed for Gas (Per bowel prep). pantoprazol 2021-0 Yes [id number] 40mg Take 1 [facility] e 40 mg EC 9-16 tablet by [facility] tablet 00:00: mouth in [place] 00 the Medical morning. Branch Simethicone 2021-0 Yes [id number] 125mg Take 1 [facility] 125 mg 9-16 capsule by [facility] 00:00: mouth [place] 00 after Medical meals and Branch at bedtime as needed for Gas (Per bowel prep). pantoprazol 2021-0 Yes [id number] 40mg Take 1 [facility] e 40 mg EC 9-16 tablet by [facility] tablet 00:00: mouth in [place] 00 the Medical morning. Branch Simethicone 2021-0 Yes [id number] 125mg Take 1 [facility] 125 mg 9-16 capsule by [facility] 00:00: mouth [place] 00 after Medical meals and Branch at bedtime as needed for Gas (Per bowel prep). pantoprazol Yes [id number] 40mg Take 1 [facility] e 40 mg EC 9-16 tablet by [facility] tablet 00:00: mouth in [place] 00 the Medical morning. Branch Simethicone 0 Yes [id number] 125mg Take 1 [facility] 125 mg 9-16 capsule by [facility] 00:00: mouth [place] 00 after Medical meals and Branch at bedtime as needed for Gas (Per bowel prep). Simethicone 0 Yes [id number] 125mg Take 1 [facility] 125 mg 9-16 capsule by [facility] 00:00: mouth [place] 00 after Medical meals and Branch at bedtime as needed for Gas (Per bowel prep). Simethicone Yes [id number] 125mg Take 1 [facility] 125 mg 9-16 capsule by [facility] 00:00: mouth [place] 00 after Medical meals and Branch at bedtime as needed for Gas (Per bowel prep). Simethicone 2021- No [id number] 125mg Take 1 [facility] 125 mg 9-16 11-01 capsule by [facility] 00:00: 00:00 mouth [place] 00 :00 after Medical meals and Branch at bedtime as needed for Gas (Per bowel prep). Simethicone 2021- No [id number] 125mg Take 1 [facility] 125 mg 9-16 11-01 capsule by [facility] 00:00: 00:00 mouth [place] 00 :00 after Medical meals and Branch at bedtime as needed for Gas (Per bowel prep). pantoprazol 2021- No [id number] 40mg Take 1 [facility] e 40 mg EC 9-16 10-13 tablet by [facility] tablet 00:00: 00:00 mouth in [place] 00 :00 the Medical morning. Branch SUMAtriptan Yes [id number] TAKE 1 [facility] 50 mg 9-06 TABLET BY [facility] tablet 00:00: MOUTH [place] 00 NEEDED FOR Medical MIGRAINE Branch HEADACHE ( MAY REPEAT IN 2 HOURS ) SUMAtriptan 2021-0 Yes [id number] TAKE 1 [facility] 50 mg 9-06 TABLET BY [facility] tablet 00:00: MOUTH [place] 00 NEEDED FOR Medical MIGRAINE Branch HEADACHE ( MAY REPEAT IN 2 HOURS ) SUMAtriptan 2021-0 Yes [id number] TAKE 1 [facility] 50 mg 9-06 TABLET BY [facility] tablet 00:00: MOUTH [place] 00 NEEDED FOR Medical MIGRAINE Branch HEADACHE ( MAY REPEAT IN 2 HOURS ) SUMAtriptan 2022-0 Yes [id number] TAKE 1 [facility] 50 mg 9-06 TABLET BY [facility] tablet 00:00: MOUTH [place] 00 NEEDED FOR Medical MIGRAINE Branch HEADACHE ( MAY REPEAT IN 2 HOURS ) SUMAtriptan 2022-0 Yes [id number] TAKE 1 [facility] 50 mg 9-06 TABLET BY [facility] tablet 00:00: MOUTH [place] 00 NEEDED FOR Medical MIGRAINE Branch HEADACHE ( MAY REPEAT IN 2 HOURS ) SUMAtriptan 2-0 Yes [id number] TAKE 1 [facility] 50 mg 9-06 TABLET BY [facility] tablet 00:00: MOUTH [place] 00 NEEDED FOR Medical MIGRAINE Branch HEADACHE ( MAY REPEAT IN 2 HOURS ) SUMAtriptan 2-0 Yes [id number] TAKE 1 [facility] 50 mg 9-06 TABLET BY [facility] tablet 00:00: MOUTH [place] 00 NEEDED FOR Medical MIGRAINE Branch HEADACHE ( MAY REPEAT IN 2 HOURS ) SUMAtriptan 2-0 Yes [id number] TAKE 1 [facility] 50 mg 9-06 TABLET BY [facility] tablet 00:00: MOUTH [place] 00 NEEDED FOR Medical MIGRAINE Branch HEADACHE ( MAY REPEAT IN 2 HOURS ) SUMAtriptan 2-0 Yes [id number] TAKE 1 [facility] 50 mg 9-06 TABLET BY [facility] tablet 00:00: MOUTH [place] 00 NEEDED FOR Medical MIGRAINE Branch HEADACHE ( MAY REPEAT IN 2 HOURS ) SUMAtriptan 2022-0 Yes [id number] TAKE 1 [facility] 50 mg 9-06 TABLET BY [facility] tablet 00:00: MOUTH [place] 00 NEEDED FOR Medical MIGRAINE Branch HEADACHE ( MAY REPEAT IN 2 HOURS ) SUMAtriptan 2-0 Yes [id number] TAKE 1 [facility] 50 mg 9-06 TABLET BY [facility] tablet 00:00: MOUTH [place] 00 NEEDED FOR Medical MIGRAINE Branch HEADACHE ( MAY REPEAT IN 2 HOURS ) SUMAtriptan 2022-0 Yes [id number] TAKE 1 [facility] 50 mg 9-06 TABLET BY [facility] tablet 00:00: MOUTH [place] 00 NEEDED FOR Medical MIGRAINE Branch HEADACHE ( MAY REPEAT IN 2 HOURS ) SUMAtriptan 2022-0 2022- No [id number] TAKE 1 [facility] 50 mg 9-06 -22 TABLET BY [facility] tablet 00:00: 00:00 MOUTH [place] 00 :00 NEEDED FOR Medical MIGRAINE Branch HEADACHE ( MAY REPEAT IN 2 HOURS ) SUMAtriptan 2022-0 2- No [id number] TAKE 1 [facility] 50 mg 9-06 - TABLET BY [facility] tablet 00:00: 00:00 MOUTH [place] 00 :00 NEEDED FOR Medical MIGRAINE Branch HEADACHE ( MAY REPEAT IN 2 HOURS ) SUMAtriptan 2022-0 2- No [id number] TAKE 1 [facility] 50 mg 9-03 04-22 TABLET BY [facility] tablet 00:00: 00:00 MOUTH [place] 00 :00 NEEDED FOR Medical MIGRAINE Branch HEADACHE ( MAY REPEAT IN 2 HOURS ) topiramate 2022-0 Yes [id number] Take 2 [facility] 25 mg 9-01 tablets by [facility] tablet 00:00: mouth [place] 00 twice Medical daily Branch topiramate 2022-0 Yes [id number] Take 2 [facility] 25 mg 9-01 tablets by [facility] tablet 00:00: mouth [place] 00 twice Medical daily Branch topiramate 2022-0 Yes [id number] Take 2 [facility] 25 mg 9-01 tablets by [facility] tablet 00:00: mouth [place] 00 twice Medical daily Branch topiramate 2022-0 Yes [id number] Take 2 [facility] 25 mg 9-01 tablets by [facility] tablet 00:00: mouth [place] 00 twice Medical daily Branch topiramate 2022-0 Yes [id number] Take 2 [facility] 25 mg 9-01 tablets by [facility] tablet 00:00: mouth [place] 00 twice Medical daily Branch topiramate 2022-0 Yes [id number] Take 2 [facility] 25 mg 9-01 tablets by [facility] tablet 00:00: mouth [place] 00 twice Medical daily Branch topiramate 2022-0 Yes [id number] Take 2 [facility] 25 mg 9-01 tablets by [facility] tablet 00:00: mouth [place] 00 twice Medical daily Branch topiramate 2022-0 Yes [id number] Take 2 [facility] 25 mg 9-01 tablets by [facility] tablet 00:00: mouth [place] 00 twice Medical daily Branch topiramate 2022-0 Yes [id number] Take 2 [facility] 25 mg 9-01 tablets by [facility] tablet 00:00: mouth [place] 00 twice Medical daily Branch topiramate 2022-0 Yes [id number] Take 2 [facility] 25 mg 9-01 tablets by [facility] tablet 00:00: mouth [place] 00 twice Medical daily Branch topiramate 2-0 Yes [id number] Take 2 [facility] 25 mg 9-01 tablets by [facility] tablet 00:00: mouth 00 twice Medical daily Branch topiramate 2-0 Yes [id number] Take 2 [facility] 25 mg 9-01 tablets by [facility] tablet 00:00: mouth 00 twice Medical daily Branch topiramate 2-0 Yes [id number] Take 2 [facility] 25 mg 9-01 tablets by [facility] tablet 00:00: mouth 00 twice Medical daily Branch topiramate 2-0 Yes [id number] Take 2 [facility] 25 mg 9-01 tablets by [facility] tablet 00:00: mouth 00 twice Medical daily Branch topiramate 2021-0 Yes [id number] Take 2 [facility] 25 mg 9-01 tablets by [facility] tablet 00:00: mouth 00 twice Medical daily Branch topiramate 2-0 2022- No [id number] Take 2 [facility] 25 mg 9-01 09-22 tablets by [facility] tablet 00:00: 00:00 mouth [place] 00 :00 twice Medical daily Branch topiramate 2-0 2022- No [id number] Take 2 [facility] 25 mg 9-01 09-22 tablets by [facility] tablet 00:00: 00:00 mouth [place] 00 :00 twice Medical daily Branch topiramate 2022-0 2022- No [id number] Take 2 [facility] 25 mg 9-01 09-22 tablets by [facility] tablet 00:00: 00:00 mouth [place] 00 :00 twice Medical daily Branch methocarbam 2021-0 Yes [id number] 500mg Take 1 [facility] oL 500 mg 8-11 tablet by [facility] o f tablet 00:00: mouth (four) Medical times Branch daily as needed for Pain (scale 7-10). methocarbam 2021-0 Yes [id number] 500mg Take 1 [facility] oL 500 mg 8-11 tablet by [facility] f tablet 00:00: mouth (four) Medical times Branch daily as needed for Pain (scale 7-10). methocarbam 2021-0 Yes [id number] 500mg Take 1 [facility] oL 500 mg 8-11 tablet by [facility] f tablet 00:00: mouth (four) Medical times Branch daily as needed for Pain (scale 7-10). methocarbam 2022-0 Yes [id number] 500mg Take 1 [facility] oL 500 mg 8-11 tablet by [facility] f tablet 00:00: mouth (four) Medical times Branch daily as needed for Pain (scale 7-10). methocarbam 2-0 Yes [id number] 500mg Take 1 [facility] oL 500 mg 8-11 tablet by [facility] f tablet 00:00: mouth (four) Medical times Branch daily as needed for Pain (scale 7-10). methocarbam 2-0 Yes [id number] 500mg Take 1 [facility] oL 500 mg 8-11 tablet by [facility] f tablet 00:00: mouth (four) Medical times Branch daily as needed for Pain (scale 7-10). methocarbam 2-0 Yes [id number] 500mg Take 1 [facility] oL 500 mg 8-11 tablet by [facility] f tablet 00:00: mouth (four) Medical times Branch daily as needed for Pain (scale 7-10). methocarbam 2-0 Yes [id number] 500mg Take 1 [facility] oL 500 mg 8-11 tablet by [facility] o f tablet 00:00: mouth (four) Medical times Branch daily as needed for Pain (scale 7-10). methocarbam 2-0 Yes [id number] 500mg Take 1 [facility] oL 500 mg 8-11 tablet by [facility] o f tablet 00:00: mouth (four) Medical times Branch daily as needed for Pain (scale 7-10). methocarbam 2-0 Yes [id number] 500mg Take 1 [facility] oL 500 mg 8-11 tablet by [facility] o f tablet 00:00: mouth (four) Medical times Branch daily as needed for Pain (scale 7-10). methocarbam 2-0 Yes [id number] 500mg Take 1 [facility] oL 500 mg 8-11 tablet by [facility] o f tablet 00:00: mouth (four) Medical times Branch daily as needed for Pain (scale 7-10). methocarbam 2022-0 Yes [id number] 500mg Take 1 [facility] oL 500 mg 8-11 tablet by [facility] o f tablet 00:00: mouth (four) Medical times Branch daily as needed for Pain (scale 7-10). methocarbam 2022-0 Yes [id number] 500mg Take 1 [facility] oL 500 mg 8-11 tablet by [facility] o f tablet 00:00: mouth (four) Medical times Branch daily as needed for Pain (scale 7-10). methocarbam 2-0 Yes [id number] 500mg Take 1 [facility] oL 500 mg 8-11 tablet by [facility] o f tablet 00:00: mouth (four) Medical times Branch daily as needed for Pain (scale 7-10). methocarbam 2-0 Yes [id number] 500mg Take 1 [facility] oL 500 mg 8-11 tablet by [facility] o f tablet 00:00: mouth (four) Medical times Branch daily as needed for Pain (scale 7-10). methocarbam 2-0 Yes [id number] 500mg Take 1 [facility] oL 500 mg 8-11 tablet by [facility] o f tablet 00:00: mouth (four) Medical times Branch daily as needed for Pain (scale 7-10). methocarbam 2-0 Yes [id number] 500mg Take 1 [facility] oL 500 mg 8-11 tablet by [facility] o f tablet 00:00: mouth (four) Medical times Branch daily as needed for Pain (scale 7-10). methocarbam 2-0 Yes [id number] 500mg Take 1 [facility] oL 500 mg 8-11 tablet by [facility] o f tablet 00:00: mouth (four) Medical times Branch daily as needed for Pain (scale 7-10). methocarbam 2-0 Yes [id number] 500mg Take 1 [facility] oL 500 mg 8-11 tablet by [facility] o f tablet 00:00: mouth (four) Medical times Branch daily as needed for Pain (scale 7-10). methocarbam 2-0 Yes [id number] 500mg Take 1 [facility] oL 500 mg 8-11 tablet by [facility] o f tablet 00:00: mouth (four) Medical times Branch daily as needed for Pain (scale 7-10). methocarbam 2022-0 Yes [id number] 500mg Take 1 [facility] oL 500 mg 8-11 tablet by [facility] o f tablet 00:00: mouth (four) Medical times Branch daily as needed for Pain (scale 7-10). methocarbam 2-0 Yes [id number] 500mg Take 1 [facility] oL 500 mg 8-11 tablet by [facility] o f tablet 00:00: mouth (four) Medical times Branch daily as needed for Pain (scale 7-10). methocarbam 2-0 Yes [id number] 500mg Take 1 [facility] oL 500 mg 8-11 tablet by [facility] o f tablet 00:00: mouth (four) Medical times Branch daily as needed for Pain (scale 7-10). methocarbam 2-0 Yes [id number] 500mg Take 1 [facility] oL 500 mg 8-11 tablet by [facility] o f tablet 00:00: mouth (four) Medical times Branch daily as needed for Pain (scale 7-10). methocarbam 2-0 Yes [id number] 500mg Take 1 [facility] oL 500 mg 8-11 tablet by [facility] o f tablet 00:00: mouth (four) Medical times Branch daily as needed for Pain (scale 7-10). methocarbam 2-0 Yes [id number] 500mg Take 1 [facility] oL 500 mg 8-11 tablet by [facility] o f tablet 00:00: mouth (four) Medical times Branch daily as needed for Pain (scale 7-10). methocarbam 2-0 Yes [id number] 500mg Take 1 [facility] oL 500 mg 8-11 tablet by [facility] o f tablet 00:00: mouth (four) Medical times Branch daily as needed for Pain (scale 7-10). methocarbam 2-0 Yes [id number] 500mg Take 1 [facility] oL 500 mg 8-11 tablet by [facility] o f tablet 00:00: mouth (four) Medical times Branch daily as needed for Pain (scale 7-10). methocarbam 2-0 Yes [id number] 500mg Take 1 [facility] oL 500 mg 8-11 tablet by [facility] o f tablet 00:00: mouth (four) Medical times Branch daily as needed for Pain (scale 7-10). methocarbam 2-0 Yes [id number] 500mg Take 1 [facility] oL 500 mg 8-11 tablet by [facility] o f tablet 00:00: mouth (four) Medical times Branch daily as needed for Pain (scale 7-10). methocarbam 2-0 Yes [id number] 500mg Take 1 [facility] oL 500 mg 8-11 tablet by [facility] o f tablet 00:00: mouth (four) Medical times Branch daily as needed for Pain (scale 7-10). methocarbam 2-0 Yes [id number] 500mg Take 1 [facility] oL 500 mg 8-11 tablet by [facility] o f tablet 00:00: mouth (four) Medical times Branch daily as needed for Pain (scale 7-10). methocarbam 2-0 Yes [id number] 500mg Take 1 [facility] oL 500 mg 8-11 tablet by [facility] o f tablet 00:00: mouth (four) Medical times Branch daily as needed for Pain (scale 7-10). methocarbam 2-0 Yes [id number] 500mg Take 1 [facility] oL 500 mg 8-11 tablet by [facility] o f tablet 00:00: mouth (four) Medical times Branch daily as needed for Pain (scale 7-10). methocarbam 2-0 Yes [id number] 500mg Take 1 [facility] oL 500 mg 8-11 tablet by [facility] o f tablet 00:00: mouth (four) Medical times Branch daily as needed for Pain (scale 7-10). methocarbam 2-0 Yes [id number] 500mg Take 1 [facility] oL 500 mg 8-11 tablet by [facility] o f tablet 00:00: mouth (four) Medical times Branch daily as needed for Pain (scale 7-10). methocarbam 2-0 Yes [id number] 500mg Take 1 [facility] oL 500 mg 8-11 tablet by [facility] o f tablet 00:00: mouth (four) Medical times Branch daily as needed for Pain (scale 7-10). methocarbam 2-0 Yes [id number] 500mg Take 1 [facility] oL 500 mg 8-11 tablet by [facility] o f tablet 00:00: mouth (four) Medical times Branch daily as needed for Pain (scale 7-10). methocarbam 2022-0 Yes [id number] 500mg Take 1 [facility] oL 500 mg 8-11 tablet by [facility] o f tablet 00:00: mouth (four) Medical times Branch daily as needed for Pain (scale 7-10). methocarbam 2022-0 Yes [id number] 500mg Take 1 [facility] oL 500 mg 8-11 tablet by [facility] o f tablet 00:00: mouth (four) Medical times Branch daily as needed for Pain (scale 7-10). methocarbam 2022-0 Yes [id number] 500mg Take 1 [facility] oL 500 mg 8-11 tablet by [facility] o f tablet 00:00: mouth (four) Medical times Branch daily as needed for Pain (scale 7-10). methocarbam 2022-0 Yes [id number] 500mg Take 1 [facility] oL 500 mg 8-11 tablet by [facility] o f tablet 00:00: mouth (four) Medical times Branch daily as needed for Pain (scale 7-10). methocarbam 2022-0 Yes [id number] 500mg Take 1 [facility] oL 500 mg 8-11 tablet by [facility] o f tablet 00:00: mouth (four) Medical times Branch daily as needed for Pain (scale 7-10). methocarbam 2-0 Yes [id number] 500mg Take 1 [facility] oL 500 mg 8-11 tablet by [facility] o f tablet 00:00: mouth (four) Medical times Branch daily as needed for Pain (scale 7-10). methocarbam 2-0 Yes [id number] 500mg Take 1 [facility] oL 500 mg 8-11 tablet by [facility] o f tablet 00:00: mouth (four) Medical times Branch daily as needed for Pain (scale 7-10). methocarbam 2-0 Yes [id number] 500mg Take 1 [facility] oL 500 mg 8-11 tablet by [facility] o f tablet 00:00: mouth (four) Medical times Branch daily as needed for Pain (scale 7-10). methocarbam 2022-0 Yes [id number] 500mg Take 1 [facility] oL 500 mg 8-11 tablet by [facility] o f tablet 00:00: mouth (four) Medical times Branch daily as needed for Pain (scale 7-10). methocarbam 2022-0 Yes [id number] 500mg Take 1 [facility] oL 500 mg 8-11 tablet by [facility] o f tablet 00:00: mouth (four) Medical times Branch daily as needed for Pain (scale 7-10). methocarbam 2022-0 Yes [id number] 500mg Take 1 [facility] oL 500 mg 8-11 tablet by [facility] o f tablet 00:00: mouth (four) Medical times Branch daily as needed for Pain (scale 7-10). methocarbam 2022-0 Yes [id number] 500mg Take 1 [facility] oL 500 mg 8-11 tablet by [facility] o f tablet 00:00: mouth (four) Medical times Branch daily as needed for Pain (scale 7-10). methocarbam 2022-0 Yes [id number] 500mg Take 1 [facility] oL 500 mg 8-11 tablet by [facility] o f tablet 00:00: mouth (four) Medical times Branch daily as needed for Pain (scale 7-10). methocarbam 2022-0 Yes [id number] 500mg Take 1 [facility] oL 500 mg 8-11 tablet by [facility] o f tablet 00:00: mouth (four) Medical times Branch daily as needed for Pain (scale 7-10). methocarbam 2-0 Yes [id number] 500mg Take 1 [facility] oL 500 mg 8-11 tablet by [facility] o f tablet 00:00: mouth (four) Medical times Branch daily as needed for Pain (scale 7-10). methocarbam 2-0 Yes [id number] 500mg Take 1 [facility] oL 500 mg 8-11 tablet by [facility] o f tablet 00:00: mouth (four) Medical times Branch daily as needed for Pain (scale 7-10). methocarbam 2-0 Yes [id number] 500mg Take 1 [facility] oL 500 mg 8-11 tablet by [facility] o f tablet 00:00: mouth (four) Medical times Branch daily as needed for Pain (scale 7-10). methocarbam 2-0 Yes [id number] 500mg Take 1 [facility] oL 500 mg 8-11 tablet by [facility] o f tablet 00:00: mouth (four) Medical times Branch daily as needed for Pain (scale 7-10). methocarbam 2022-0 Yes [id number] 500mg Take 1 [facility] oL 500 mg 8-11 tablet by [facility] o f tablet 00:00: mouth (four) Medical times Branch daily as needed for Pain (scale 7-10). methocarbam 2022-0 Yes [id number] 500mg Take 1 [facility] oL 500 mg 8-11 tablet by [facility] o f tablet 00:00: mouth (four) Medical times Branch daily as needed for Pain (scale 7-10). methocarbam 2021-0 Yes [id number] 500mg Take 1 [facility] oL 500 mg 8-11 tablet by [facility] o f tablet 00:00: mouth 4 00 (four) Medical times Branch daily as needed for Pain (scale 7-10). methocarbam 2021-0 Yes [id number] 500mg Take 1 [facility] oL 500 mg 8-11 tablet by [facility] o f tablet 00:00: mouth 4 00 (four) Medical times Branch daily as needed for Pain (scale 7-10). methocarbam 3- No [id number] 500mg Take 1 [facility] oL 500 mg 8-11 -24 tablet by [facility] tablet 00:00: 00:00 mouth 4 [place] 00 :00 (four) Medical times Branch daily as needed for Pain (scale 7-10). methocarbam 2021-2022- No [id number] 500mg Take 1 [facility] oL 500 mg 8-11 -24 tablet by [facility] tablet 00:00: 00:00 mouth 4 00 : (four) Medical times Branch daily as needed for Pain (scale 7-10). methocarbam 3- No [id number] 500mg Take 1 [facility] oL 500 mg 8-11 -24 tablet by [facility] tablet 00:00: 00:00 mouth 4 [place] 00 :00 (four) Medical times Branch daily as needed for Pain (scale 7-10). LOSARTAN 50 2021-0 Yes [id number] Take 1 [facility] mg tablet 7-20 tablet by [facility]y o f 00:00: mouth twice Medical daily Branch DILTIAZEM 2021-0 Yes [id number] Take 1 [facility] [place] 120 mg 24 7-20 capsule by [facility] hr capsule 00:00: mouth 00 twice Medical daily Branch LOSARTAN 50 2021-0 Yes [id number] Take 1 [facility] mg tablet 7-20 tablet by [facility] o f 00:00: mouth 00 twice Medical daily Branch DILTIAZEM 2021-0 Yes [id number] Take 1 [facility] [place] 120 mg 24 7-20 capsule by [facility] hr capsule 00:00: mouth 00 twice Medical daily Branch LOSARTAN 50 2021-0 Yes [id number] Take 1 [facility] mg tablet 7-20 tablet by [facility] o f 00:00: mouth twice Medical daily Branch DILTIAZEM 2021-0 Yes [id number] Take 1 [facility] [place] 120 mg 24 7-20 capsule by [facility] hr capsule 00:00: mouth twice Medical daily Branch LOSARTAN 50 2021-0 Yes [id number] Take 1 [facility] mg tablet 7-20 tablet by [facility] o f 00:00: mouth twice Medical daily Branch DILTIAZEM 2021-0 Yes [id number] Take 1 [facility] [place] 120 mg 24 7-20 capsule by [facility] hr capsule 00:00: mouth twice Medical daily Branch LOSARTAN 50 2021-0 Yes [id number] Take 1 [facility] mg tablet 7-20 tablet by [facility] o f 00:00: mouth twice Medical daily Branch DILTIAZEM 2021-0 Yes [id number] Take 1 [facility] [place] 120 mg 24 7-20 capsule by [facility] hr capsule 00:00: mouth twice Medical daily Branch LOSARTAN 50 2021-0 Yes [id number] Take 1 [facility] mg tablet 7-20 tablet by [facility] o f 00:00: mouth twice Medical daily Branch DILTIAZEM 2021-0 Yes [id number] Take 1 [facility] [place] 120 mg 24 7-20 capsule by [facility] hr capsule 00:00: mouth twice Medical daily Branch LOSARTAN 50 2021-0 Yes [id number] Take 1 [facility] mg tablet 7-20 tablet by [facility] o f 00:00: mouth twice Medical daily Branch DILTIAZEM 2021-0 Yes [id number] Take 1 [facility] [place] 120 mg 24 7-20 capsule by [facility] hr capsule 00:00: mouth twice Medical daily Branch LOSARTAN 50 2021-0 Yes [id number] Take 1 [facility] mg tablet 7-20 tablet by [facility]y o f 00:00: mouth twice Medical daily Branch DILTIAZEM 2021-0 Yes [id number] Take 1 [facility] [place] 120 mg 24 7-20 capsule by [facility] hr capsule 00:00: mouth twice Medical daily Branch LOSARTAN 50 2021-0 Yes [id number] Take 1 [facility] mg tablet 7-20 tablet by [facility]y o f 00:00: mouth twice Medical daily Branch DILTIAZEM 2021-0 Yes [id number] Take 1 [facility] [place] 120 mg 24 7-20 capsule by [facility] hr capsule 00:00: mouth twice Medical daily Branch LOSARTAN 50 2021-0 Yes [id number] Take 1 [facility] mg tablet 7-20 tablet by [facility]y o f 00:00: mouth twice Medical daily Branch DILTIAZEM 2021-0 Yes [id number] Take 1 [facility] [place] 120 mg 24 7-20 capsule by [facility] hr capsule 00:00: mouth twice Medical daily Branch LOSARTAN 50 2021-0 Yes [id number] Take 1 [facility] mg tablet 7-20 tablet by [facility]y o f 00:00: mouth twice Medical daily Branch DILTIAZEM 2021-0 Yes [id number] Take 1 [facility] [place] 120 mg 24 7-20 capsule by [facility] hr capsule 00:00: mouth twice Medical daily Branch LOSARTAN 50 2021-0 Yes [id number] Take 1 [facility] mg tablet 7-20 tablet by [facility]y o f 00:00: mouth twice Medical daily Branch DILTIAZEM 2021-0 Yes [id number] Take 1 [facility] [place] 120 mg 24 7-20 capsule by [facility] hr capsule 00:00: mouth twice Medical daily Branch LOSARTAN 50 2021-0 Yes [id number] Take 1 [facility] mg tablet 7-20 tablet by [facility]y o f 00:00: mouth twice Medical daily Branch DILTIAZEM 2021-0 Yes [id number] Take 1 [facility] [place] 120 mg 24 7-20 capsule by [facility] hr capsule 00:00: mouth twice Medical daily Branch LOSARTAN 50 2021-0 Yes [id number] Take 1 [facility] mg tablet 7-20 tablet by [facility]y o f 00:00: mouth twice Medical daily Branch DILTIAZEM 2021-0 Yes [id number] Take 1 [facility] [place] 120 mg 24 7-20 capsule by [facility] hr capsule 00:00: mouth twice Medical daily Branch LOSARTAN 50 2-0 Yes [id number] Take 1 [facility] mg tablet 7-20 tablet by [facility]y o f 00:00: mouth twice Medical daily Branch DILTIAZEM 2-0 Yes [id number] Take 1 [facility] [place] 120 mg 24 7-20 capsule by [facility] hr capsule 00:00: mouth twice Medical daily Branch LOSARTAN 50 2-0 Yes [id number] Take 1 [facility] mg tablet 7-20 tablet by [facility]y o f 00:00: mouth twice Medical daily Branch DILTIAZEM 2-0 Yes [id number] Take 1 [facility] [place] 120 mg 24 7-20 capsule by [facility] hr capsule 00:00: mouth twice Medical daily Branch LOSARTAN 50 2021-0 Yes [id number] Take 1 [facility] mg tablet 7-20 tablet by [facility]y o f 00:00: mouth twice Medical daily Branch DILTIAZEM 2021-0 Yes [id number] Take 1 [facility] [place] 120 mg 24 7-20 capsule by [facility] hr capsule 00:00: mouth twice Medical daily Branch LOSARTAN 50 2021-0 Yes [id number] Take 1 [facility] mg tablet 7-20 tablet by [facility]y o f 00:00: mouth twice Medical daily Branch DILTIAZEM 2021-0 Yes [id number] Take 1 [facility] [place] 120 mg 24 7-20 capsule by [facility] hr capsule 00:00: twice Medical daily Branch LOSARTAN 50 2021-0 Yes [id number] Take 1 [facility] mg tablet 7-20 tablet by [facility]y o f 00:00: twice Medical daily Branch DILTIAZEM 2021-0 Yes [id number] Take 1 [facility] [place] 120 mg 24 7-20 capsule by [facility] hr capsule 00:00: mouth twice Medical daily Branch LOSARTAN 50 2021-0 Yes [id number] Take 1 [facility] mg tablet 7-20 tablet by [facility]y o f 00:00: twice Medical daily Branch DILTIAZEM 2021-0 Yes [id number] Take 1 [facility] [place] 120 mg 24 7-20 capsule by [facility] hr capsule 00:00: twice Medical daily Branch LOSARTAN 50 2-0 Yes [id number] Take 1 [facility] mg tablet 7-20 tablet by [facility] 00:00: mouth twice Medical daily Branch DILTIAZEM 2-0 Yes [id number] Take 1 [facility] 120 mg 24 7-20 capsule by [facility] capsule 00:00: twice Medical daily Branch LOSARTAN 50 2-0 Yes [id number] Take 1 [facility] mg tablet 7-20 tablet by [facility] f 00:00: mouth twice Medical daily Branch DILTIAZEM 2-0 Yes [id number] Take 1 [facility] 120 mg 24 7-20 capsule by [facility] capsule 00:00: mouth twice Medical daily Branch LOSARTAN 50 2022-0 Yes [id number] Take 1 [facility] mg tablet 7-20 tablet by [facility] f 00:00: mouth twice Medical daily Branch DILTIAZEM 2021-0 Yes [id number] Take 1 [facility] 120 mg 24 7-20 capsule by [facility] capsule 00:00: twice Medical daily Branch LOSARTAN 50 2021-0 Yes [id number] Take 1 [facility] mg tablet 7-20 tablet by [facility] f 00:00: mouth twice Medical daily Branch DILTIAZEM 2021-0 Yes [id number] Take 1 [facility] 120 mg 24 7-20 capsule by [facility] capsule 00:00: mouth twice Medical daily Branch LOSARTAN 50 2021-0 Yes [id number] Take 1 [facility] mg tablet 7-20 tablet by [facility] f 00:00: twice Medical daily Branch DILTIAZEM 2021-0 Yes [id number] Take 1 [facility] [place] 120 mg 24 7-20 capsule by [facility] capsule 00:00: twice Medical daily Branch LOSARTAN 50 2021-0 Yes [id number] Take 1 [facility] mg tablet 7-20 tablet by [facility] f 00:00: twice Medical daily Branch DILTIAZEM 2021-0 Yes [id number] Take 1 [facility] 120 mg 24 7-20 capsule by [facility] capsule 00:00: twice Medical daily Branch LOSARTAN 50 2021-0 Yes [id number] Take 1 [facility] mg tablet 7-20 tablet by [facility] f 00:00: twice Medical daily Branch DILTIAZEM 2021-0 Yes [id number] Take 1 [facility] 120 mg 24 7-20 capsule by [facility] capsule 00:00: twice Medical daily Branch LOSARTAN 50 2021-0 Yes [id number] Take 1 [facility] mg tablet 7-20 tablet by [facility] f 00:00: twice Medical daily Branch DILTIAZEM 2021-0 Yes [id number] Take 1 [facility] [place] 120 mg 24 7-20 capsule by [facility] capsule 00:00: twice Medical daily Branch LOSARTAN 50 2021-0 Yes [id number] Take 1 [facility] mg tablet 7-20 tablet by [facility] f 00:00: twice Medical daily Branch DILTIAZEM 2021-0 Yes [id number] Take 1 [facility] 120 mg 24 7-20 capsule by [facility] capsule 00:00: mouth 00 twice Medical daily Branch LOSARTAN 50 2021-0 Yes [id number] Take 1 [facility] mg tablet 7-20 tablet by [facility] f 00:00: mouth [place] 00 twice Medical daily Branch DILTIAZEM 2021-0 Yes [id number] Take 1 [facility] 120 mg 24 7-20 capsule by [facility] capsule 00:00: mouth 00 twice Medical daily Branch LOSARTAN 50 2021-0 Yes [id number] Take 1 [facility] mg tablet 7-20 tablet by [facility] f 00:00: mouth 00 twice Medical daily Branch DILTIAZEM 2021-0 Yes [id number] Take 1 [facility] 120 mg 24 7-20 capsule by [facility] capsule 00:00: mouth 00 twice Medical daily Branch LOSARTAN 50 2021-0 Yes [id number] Take 1 [facility] mg tablet 7-20 tablet by [facility] f 00:00: mouth twice Medical daily Branch DILTIAZEM 2021-0 Yes [id number] Take 1 [facility] 120 mg 24 7-20 capsule by [facility] capsule 00:00: mouth 00 twice Medical daily Branch LOSARTAN 50 2021-0 2021- No [id number] Take 1 [facility] mg tablet 7-20 10-13 tablet by [facility] of 00:00: 00:00 mouth [place] 00 :00 twice Medical daily Branch DILTIAZEM 2021-0 2021- No [id number] Take 1 [facility] 120 mg 24 7-20 10-13 capsule by [facility] capsule 00:00: 00:00 mouth [place] 00 :00 twice Medical daily Branch methocarbam 2021-0 Yes [id number] 500mg Take 1 [facility] oL 500 mg 7-02 tablet by [facility] tablet 00:00: mouth (four) Medical times Branch daily. methocarbam 2021-0 Yes [id number] 500mg Take 1 [facility] oL 500 mg 7-02 tablet by [facility] tablet 00:00: mouth (four) Medical times Branch daily. methocarbam 2021-0 Yes [id number] 500mg Take 1 [facility] oL 500 mg 7-02 tablet by [facility] tablet 00:00: mouth (four) Medical times Branch daily. methocarbam 2021-0 Yes [id number] 500mg Take 1 [facility] oL 500 mg 7-02 tablet by [facility] tablet 00:00: mouth 4 [place] 00 (four) Medical times Branch daily. methocarbam 2021-0 Yes [id number] 500mg Take 1 [facility] oL 500 mg 7-02 tablet by [facility] tablet 00:00: mouth 4 [place] 00 (four) Medical times Branch daily. methocarbam 2021-0 2- No [id number] 500mg Take 1 [facility] oL 500 mg 7-02 08-11 tablet by [facility] tablet 00:00: 00:00 mouth 4 [place] 00 :00 (four) Medical times Branch daily. SUMATRIPTAN 2021-0 Yes [id number] TAKE 1 [facility] 50 mg 6-17 TABLET BY [facility] tablet 00:00: MOUTH [place] 00 NEEDED FOR Medical MIGRAINE Branch HEADACHE (MAY REPEAT IN TWO HOURS) SUMATRIPTAN 2021-0 Yes [id number] TAKE 1 [facility] 50 mg 6-17 TABLET BY [facility] tablet 00:00: MOUTH [place] 00 NEEDED FOR Medical MIGRAINE Branch HEADACHE (MAY REPEAT IN TWO HOURS) SUMATRIPTAN 2021-0 Yes [id number] TAKE 1 [facility] 50 mg 6-17 TABLET BY [facility] tablet 00:00: MOUTH [place] 00 NEEDED FOR Medical MIGRAINE Branch HEADACHE (MAY REPEAT IN TWO HOURS) SUMATRIPTAN 2021-0 Yes [id number] TAKE 1 [facility] 50 mg 6-17 TABLET BY [facility] tablet 00:00: MOUTH [place] 00 NEEDED FOR Medical MIGRAINE Branch HEADACHE (MAY REPEAT IN TWO HOURS) SUMATRIPTAN 2-0 Yes [id number] TAKE 1 [facility] 50 mg 6-17 TABLET BY [facility] tablet 00:00: MOUTH [place] 00 NEEDED FOR Medical MIGRAINE Branch HEADACHE (MAY REPEAT IN TWO HOURS) SUMATRIPTAN 2-0 Yes [id number] TAKE 1 [facility] 50 mg 6-17 TABLET BY [facility] tablet 00:00: MOUTH [place] 00 NEEDED FOR Medical MIGRAINE Branch HEADACHE (MAY REPEAT IN TWO HOURS) SUMATRIPTAN 2-0 Yes [id number] TAKE 1 [facility] 50 mg 6-17 TABLET BY [facility] tablet 00:00: MOUTH [place] 00 NEEDED FOR Medical MIGRAINE Branch HEADACHE (MAY REPEAT IN TWO HOURS) SUMATRIPTAN 2-0 Yes [id number] TAKE 1 [facility] 50 mg 6-17 TABLET BY [facility] tablet 00:00: MOUTH [place] 00 NEEDED FOR Medical MIGRAINE Branch HEADACHE (MAY REPEAT IN TWO HOURS) SUMATRIPTAN 2022-0 Yes [id number] TAKE 1 [facility] 50 mg 6-17 TABLET BY [facility] tablet 00:00: MOUTH [place] 00 NEEDED FOR Medical MIGRAINE Branch HEADACHE (MAY REPEAT IN TWO HOURS) SUMATRIPTAN 2022-0 Yes [id number] TAKE 1 [facility] 50 mg 6-17 TABLET BY [facility] tablet 00:00: MOUTH [place] 00 NEEDED FOR Medical MIGRAINE Branch HEADACHE (MAY REPEAT IN TWO HOURS) SUMATRIPTAN 2-0 Yes [id number] TAKE 1 [facility] 50 mg 6-17 TABLET BY [facility] tablet 00:00: MOUTH [place] 00 NEEDED FOR Medical MIGRAINE Branch HEADACHE (MAY REPEAT IN TWO HOURS) SUMATRIPTAN 2-0 Yes [id number] TAKE 1 [facility] 50 mg 6-17 TABLET BY [facility] tablet 00:00: MOUTH [place] 00 NEEDED FOR Medical MIGRAINE Branch HEADACHE (MAY REPEAT IN TWO HOURS) SUMATRIPTAN 2-0 Yes [id number] TAKE 1 [facility] 50 mg 6-17 TABLET BY [facility] tablet 00:00: MOUTH [place] 00 NEEDED FOR Medical MIGRAINE Branch HEADACHE (MAY REPEAT IN TWO HOURS) SUMATRIPTAN 2-0 Yes [id number] TAKE 1 [facility] 50 mg 6-17 TABLET BY [facility] tablet 00:00: MOUTH [place] 00 NEEDED FOR Medical MIGRAINE Branch HEADACHE (MAY REPEAT IN TWO HOURS) SUMATRIPTAN 2-0 Yes [id number] TAKE 1 [facility] 50 mg 6-17 TABLET BY [facility] tablet 00:00: MOUTH [place] 00 NEEDED FOR Medical MIGRAINE Branch HEADACHE (MAY REPEAT IN TWO HOURS) SUMATRIPTAN 2-0 Yes [id number] TAKE 1 [facility] 50 mg 6-17 TABLET BY [facility] tablet 00:00: MOUTH [place] 00 NEEDED FOR Medical MIGRAINE Branch HEADACHE (MAY REPEAT IN TWO HOURS) SUMATRIPTAN 2022-0 Yes [id number] TAKE 1 [facility] 50 mg 6-17 TABLET BY [facility] tablet 00:00: MOUTH [place] 00 NEEDED FOR Medical MIGRAINE Branch HEADACHE (MAY REPEAT IN TWO HOURS) SUMATRIPTAN 2022-0 2022- No [id number] TAKE 1 [facility] 50 mg 6-17 -06 TABLET BY [facility] tablet 00:00: 00:00 MOUTH [place] 00 :00 NEEDED FOR Medical MIGRAINE Branch HEADACHE (MAY REPEAT IN TWO HOURS) SUMATRIPTAN 2021-0 2- No [id number] TAKE 1 [facility] 50 mg 6-17 -06 TABLET BY [facility] tablet 00:00: 00:00 MOUTH [place] 00 :00 NEEDED FOR Medical MIGRAINE Branch HEADACHE (MAY REPEAT IN TWO HOURS) fexofenadin 2021-0 Yes [id number] 180mg Take 1 [facility] e (LUIS 6-13 tablet by [facility] ALLERGY) 00:00: mouth [place] 180 mg 00 daily. Medical tablet Branch fexofenadin 0 Yes [id number] 180mg Take 1 [facility] e (LUIS 6-13 tablet by [facility] ALLERGY) 00:00: mouth [place] 180 mg 00 daily. Medical tablet Branch fexofenadin Yes [id number] 180mg Take 1 [facility] e (LUIS 6-13 tablet by [facility] ALLERGY) 00:00: mouth [place] 180 mg 00 daily. Medical tablet Branch fexofenadin 0 Yes [id number] 180mg Take 1 [facility] e (LUIS 6-13 tablet by [facility] ALLERGY) 00:00: mouth [place] 180 mg 00 daily. Medical tablet Branch fexofenadin 0 Yes [id number] 180mg Take 1 [facility] e (LUIS 6-13 tablet by [facility] of ALLERGY) 00:00: mouth [place] 180 mg 00 daily. Medical tablet Branch fexofenadin Yes [id number] 180mg Take 1 [facility] e (LUIS 6-13 tablet by [facility] of ALLERGY) 00:00: mouth [place] 180 mg 00 daily. Medical tablet Branch fexofenadin 0 Yes [id number] 180mg Take 1 [facility] e (LUIS 6-13 tablet by [facility] of ALLERGY) 00:00: mouth [place] 180 mg 00 daily. Medical tablet Branch fexofenadin 2021-0 Yes [id number] 180mg Take 1 [facility] e (LUIS 6-13 tablet by [facility] of ALLERGY) 00:00: mouth [place] 180 mg 00 daily. Medical tablet Branch fexofenadin 0 Yes [id number] 180mg Take 1 [facility] e (LUIS 6-13 tablet by [facility] of ALLERGY) 00:00: mouth [place] 180 mg 00 daily. Medical tablet Branch fexofenadin Yes [id number] 180mg Take 1 [facility] e (LUIS 6-13 tablet by [facility] of ALLERGY) 00:00: mouth [place] 180 mg 00 daily. Medical tablet Branch fexofenadin Yes [id number] 180mg Take 1 [facility] e (LUIS 6-13 tablet by [facility] of ALLERGY) 00:00: mouth [place] 180 mg 00 daily. Medical tablet Branch fexofenadin Yes [id number] 180mg Take 1 [facility] e (LUIS 6-13 tablet by [facility] of ALLERGY) 00:00: mouth [place] 180 mg 00 daily. Medical tablet Branch fexofenadin Yes [id number] 180mg Take 1 [facility] e (LUIS 6-13 tablet by [facility] of ALLERGY) 00:00: mouth [place] 180 mg 00 daily. Medical tablet Branch fexofenadin Yes [id number] 180mg Take 1 [facility] e (LUIS 6-13 tablet by [facility] of ALLERGY) 00:00: mouth [place] 180 mg 00 daily. Medical tablet Branch fexofenadin Yes [id number] 180mg Take 1 [facility] e (LUIS 6-13 tablet by [facility] of ALLERGY) 00:00: mouth [place] 180 mg 00 daily. Medical tablet Branch fexofenadin Yes [id number] 180mg Take 1 [facility] e (LUIS 6-13 tablet by [facility] of ALLERGY) 00:00: mouth [place] 180 mg 00 daily. Medical tablet Branch fexofenadin Yes [id number] 180mg Take 1 [facility] e (LUIS 6-13 tablet by [facility] of ALLERGY) 00:00: mouth [place] 180 mg 00 daily. Medical tablet Branch fexofenadin Yes [id number] 180mg Take 1 [facility] e (LUIS 6-13 tablet by [facility] of ALLERGY) 00:00: mouth [place] 180 mg 00 daily. Medical tablet Branch fexofenadin Yes [id number] 180mg Take 1 [facility] e (LUIS 6-13 tablet by [facility] of ALLERGY) 00:00: mouth [place] 180 mg 00 daily. Medical tablet Branch fexofenadin Yes [id number] 180mg Take 1 [facility] e (LUIS 6-13 tablet by [facility] of ALLERGY) 00:00: mouth [place] 180 mg 00 daily. Medical tablet Branch fexofenadin 2022-0 Yes [id number] 180mg Take 1 [facility] e (LUIS 6-13 tablet by [facility] of ALLERGY) 00:00: mouth [place] 180 mg 00 daily. Medical tablet Branch fexofenadin Yes [id number] 180mg Take 1 [facility] e (LUIS 6-13 tablet by [facility] of ALLERGY) 00:00: mouth [place] 180 mg 00 daily. Medical tablet Branch fexofenadin 0 Yes [id number] 180mg Take 1 [facility] e (LUIS 6-13 tablet by [facility] of ALLERGY) 00:00: mouth [place] 180 mg 00 daily. Medical tablet Branch fexofenadin Yes [id number] 180mg Take 1 [facility] e (LUIS 6-13 tablet by [facility] of ALLERGY) 00:00: mouth [place] 180 mg 00 daily. Medical tablet Branch fexofenadin Yes [id number] 180mg Take 1 [facility] e (LUIS 6-13 tablet by [facility] of ALLERGY) 00:00: mouth [place] 180 mg 00 daily. Medical tablet Branch fexofenadin Yes [id number] 180mg Take 1 [facility] e (LUIS 6-13 tablet by [facility] of ALLERGY) 00:00: mouth [place] 180 mg 00 daily. Medical tablet Branch fexofenadin Yes [id number] 180mg Take 1 [facility] e (LUIS 6-13 tablet by [facility] of ALLERGY) 00:00: mouth [place] 180 mg 00 daily. Medical tablet Branch fexofenadin Yes [id number] 180mg Take 1 [facility] e (LUIS 6-13 tablet by [facility] of ALLERGY) 00:00: mouth [place] 180 mg 00 daily. Medical tablet Branch fexofenadin Yes [id number] 180mg Take 1 [facility] e (LUIS 6-13 tablet by [facility] of ALLERGY) 00:00: mouth [place] 180 mg 00 daily. Medical tablet Branch fexofenadin Yes [id number] 180mg Take 1 [facility] e (LUIS 6-13 tablet by [facility] of ALLERGY) 00:00: mouth [place] 180 mg 00 daily. Medical tablet Branch fexofenadin Yes [id number] 180mg Take 1 [facility] e (LUIS 6-13 tablet by [facility] of ALLERGY) 00:00: mouth [place] 180 mg 00 daily. Medical tablet Branch fexofenadin Yes [id number] 180mg Take 1 [facility] e (LUIS 6-13 tablet by [facility] of ALLERGY) 00:00: mouth [place] 180 mg 00 daily. Medical tablet Branch fexofenadin Yes [id number] 180mg Take 1 [facility] e (LUIS 6-13 tablet by [facility] of ALLERGY) 00:00: mouth [place] 180 mg 00 daily. Medical tablet Branch fexofenadin Yes [id number] 180mg Take 1 [facility] e (LUIS 6-13 tablet by [facility] of ALLERGY) 00:00: mouth [place] 180 mg 00 daily. Medical tablet Branch fexofenadin Yes [id number] 180mg Take 1 [facility] e (LUIS 6-13 tablet by [facility] of ALLERGY) 00:00: mouth [place] 180 mg 00 daily. Medical tablet Branch fexofenadin Yes [id number] 180mg Take 1 [facility] e (LUIS 6-13 tablet by [facility] of ALLERGY) 00:00: mouth [place] 180 mg 00 daily. Medical tablet Branch fexofenadin Yes [id number] 180mg Take 1 [facility] e (LUIS 6-13 tablet by [facility] of ALLERGY) 00:00: mouth [place] 180 mg 00 daily. Medical tablet Branch fexofenadin Yes [id number] 180mg Take 1 [facility] e (LUIS 6-13 tablet by [facility] of ALLERGY) 00:00: mouth [place] 180 mg 00 daily. Medical tablet Branch fexofenadin Yes [id number] 180mg Take 1 [facility] e (LUIS 6-13 tablet by [facility] of ALLERGY) 00:00: mouth [place] 180 mg 00 daily. Medical tablet Branch fexofenadin Yes [id number] 180mg Take 1 [facility] e (LUIS 6-13 tablet by [facility] of ALLERGY) 00:00: mouth [place] 180 mg 00 daily. Medical tablet Branch fexofenadin Yes [id number] 180mg Take 1 [facility] e (LUIS 6-13 tablet by [facility] of ALLERGY) 00:00: mouth [place] 180 mg 00 daily. Medical tablet Branch fexofenadin Yes [id number] 180mg Take 1 [facility] e (LUIS 6-13 tablet by [facility] of ALLERGY) 00:00: mouth [place] 180 mg 00 daily. Medical tablet Branch fexofenadin 0 Yes [id number] 180mg Take 1 [facility] e (LUIS 6-13 tablet by [facility] of ALLERGY) 00:00: mouth [place] 180 mg 00 daily. Medical tablet Branch fexofenadin 0 Yes [id number] 180mg Take 1 [facility] e (LUIS 6-13 tablet by ity of ALLERGY) 00:00: mouth [place] 180 mg 00 daily. Medical tablet Branch fexofenadin 0 Yes [id number] 180mg Take 1 [facility] e (LUIS 6-13 tablet by [facility]y of ALLERGY) 00:00: mouth [place] 180 mg 00 daily. Medical tablet Branch fexofenadin Yes [id number] 180mg Take 1 [facility] e (LUIS 6-13 tablet by [facility]y of ALLERGY) 00:00: mouth [place] 180 mg 00 daily. Medical tablet Branch fexofenadin Yes [id number] 180mg Take 1 [facility] e (LUIS 6-13 tablet by [facility]y of ALLERGY) 00:00: mouth [place] 180 mg 00 daily. Medical tablet Branch fexofenadin Yes [id number] 180mg Take 1 [facility] e (LUIS 6-13 tablet by [facility] of ALLERGY) 00:00: mouth [place] 180 mg 00 daily. Medical tablet Branch fexofenadin Yes [id number] 180mg Take 1 [facility] e (LUIS 6-13 tablet by [facility]y of ALLERGY) 00:00: mouth [place] 180 mg 00 daily. Medical tablet Branch fexofenadin Yes [id number] 180mg Take 1 [facility] e (LUIS 6-13 tablet by [facility]y of ALLERGY) 00:00: mouth [place] 180 mg 00 daily. Medical tablet Branch fexofenadin Yes [id number] 180mg Take 1 [facility] e (LUIS 6-13 tablet by [facility]y of ALLERGY) 00:00: mouth [place] 180 mg 00 daily. Medical tablet Branch fexofenadin Yes [id number] 180mg Take 1 [facility] e (LUIS 6-13 tablet by [facility]y of ALLERGY) 00:00: mouth [place] 180 mg 00 daily. Medical tablet Branch fexofenadin Yes [id number] 180mg Take 1 [facility] e (LUIS 6-13 tablet by ity of ALLERGY) 00:00: mouth [place] 180 mg 00 daily. Medical tablet Branch fexofenadin 0 Yes [id number] 180mg Take 1 [facility] e (LUIS 6-13 tablet by ity of ALLERGY) 00:00: mouth [place] 180 mg 00 daily. Medical tablet Branch fexofenadin 0 Yes [id number] 180mg Take 1 [facility] e (LUIS 6-13 tablet by [facility] of ALLERGY) 00:00: mouth [place] 180 mg 00 daily. Medical tablet Branch fexofenadin 0 Yes [id number] 180mg Take 1 [facility] e (LUIS 6-13 tablet by [facility]y of ALLERGY) 00:00: mouth [place] 180 mg 00 daily. Medical tablet Branch fexofenadin 0 Yes [id number] 180mg Take 1 [facility] e (LUIS 6-13 tablet by ity of ALLERGY) 00:00: mouth [place] 180 mg 00 daily. Medical tablet Branch fexofenadin Yes [id number] 180mg Take 1 [facility] e (LUIS 6-13 tablet by [facility] of ALLERGY) 00:00: mouth [place] 180 mg 00 daily. Medical tablet Branch fexofenadin Yes [id number] 180mg Take 1 [facility] e (LUIS 6-13 tablet by [facility]y of ALLERGY) 00:00: mouth [place] 180 mg 00 daily. Medical tablet Branch fexofenadin Yes [id number] 180mg Take 1 [facility] e (LUIS 6-13 tablet by [facility]y of ALLERGY) 00:00: mouth [place] 180 mg 00 daily. Medical tablet Branch fexofenadin 0 Yes [id number] 180mg Take 1 [facility] e (LUIS 6-13 tablet by [facility]y of ALLERGY) 00:00: mouth [place] 180 mg 00 daily. Medical tablet Branch fexofenadin 0 Yes [id number] 180mg Take 1 [facility] e (LUIS 6-13 tablet by ity of ALLERGY) 00:00: mouth [place] 180 mg 00 daily. Medical tablet Branch fexofenadin 0 Yes [id number] 180mg Take 1 [facility] e (LUIS 6-13 tablet by [facility] of ALLERGY) 00:00: mouth [place] 180 mg 00 daily. Medical tablet Branch fexofenadin 2021-0 Yes [id number] 180mg Take 1 [facility] e (LUIS 6-13 tablet by [facility]y of ALLERGY) 00:00: mouth [place] 180 mg 00 daily. Medical tablet Branch fexofenadin 2021-0 Yes [id number] 180mg Take 1 [facility] e (LUIS 6-13 tablet by [facility]y of ALLERGY) 00:00: mouth [place] 180 mg 00 daily. Medical tablet Branch fexofenadin 2021-0 Yes [id number] 180mg Take 1 [facility] e (LUIS 6-13 tablet by [facility]y of ALLERGY) 00:00: mouth [place] 180 mg 00 daily. Medical tablet Branch fexofenadin 2021-0 Yes [id number] 180mg Take 1 [facility] e (LUIS 6-13 tablet by [facility] of ALLERGY) 00:00: mouth [place] 180 mg 00 daily. Medical tablet Branch fexofenadin 2021-0 Yes [id number] 180mg Take 1 [facility] e (LUIS 6-13 tablet by [facility]y of ALLERGY) 00:00: mouth [place] 180 mg 00 daily. Medical tablet Branch fexofenadin 2021-0 Yes [id number] 180mg Take 1 [facility] e (LUIS 6-13 tablet by ity of ALLERGY) 00:00: mouth [place] 180 mg 00 daily. Medical tablet Branch fexofenadin 2021-0 Yes [id number] 180mg Take 1 [facility] e (LUIS 6-13 tablet by [facility]y of ALLERGY) 00:00: mouth [place] 180 mg 00 daily. Medical tablet Branch fexofenadin 2021-0 Yes [id number] 180mg Take 1 [facility] e (LUIS 6-13 tablet by ity of ALLERGY) 00:00: mouth [place] 180 mg 00 daily. Medical tablet Branch fexofenadin 2021-0 Yes [id number] 180mg Take 1 [facility] e (LUIS 6-13 tablet by [facility] of ALLERGY) 00:00: mouth [place] 180 mg 00 daily. Medical tablet Branch fexofenadin 2-0 3- No [id number] 180mg Take 1 [facility] e (LUIS 6-13 -24 tablet by [facility] of ALLERGY) 00:00: 00:00 mouth [place] 180 mg 00 :00 daily. Medical tablet Branch fexofenadin 2-0 3- No [id number] 180mg Take 1 [facility] e (LUIS 6-13 -24 tablet by [facility]y of ALLERGY) 00:00: 00:00 mouth [place] 180 mg 00 :00 daily. Medical tablet Branch fexofenadin 3- No [id number] 180mg Take 1 [facility] e (LUIS 6-13 24 tablet by [facility] of ALLERGY) 00:00: 00:00 mouth [place] 180 mg 00 :00 daily. Medical tablet Branch rosuvastati Yes [id number] 10mg Take 1 [facility] n 10 mg 6-08 tablet by [facility] of tablet 00:00: mouth at [place] [address] bedtime. Medical Branch rosuvastati Yes [id number] 10mg Take 1 [facility] n 10 mg 6-08 tablet by [facility] of tablet 00:00: mouth at [place] [address] bedtime. Medical Branch rosuvastati Yes [id number] 10mg Take 1 [facility] n 10 mg 6-08 tablet by [facility] of tablet 00:00: mouth at [place] [address] bedtime. Medical Branch rosuvastati Yes [id number] 10mg Take 1 [facility] n 10 mg 6-08 tablet by [facility] of tablet 00:00: mouth at [place] [address] bedtime. Medical Branch rosuvastati Yes [id number] 10mg Take 1 [facility] n 10 mg 6-08 tablet by [facility] of tablet 00:00: mouth at [place] [address] bedtime. Medical Branch rosuvastati Yes [id number] 10mg Take 1 [facility] n 10 mg 6-08 tablet by [facility] of tablet 00:00: mouth at [place] [address] bedtime. Medical Branch rosuvastati Yes [id number] 10mg Take 1 [facility] n 10 mg 6-08 tablet by [facility] of tablet 00:00: mouth at [place] [address] bedtime. Medical Branch rosuvastati Yes [id number] 10mg Take 1 [facility] n 10 mg 6-08 tablet by [facility] of tablet 00:00: mouth at [place] [address] bedtime. Medical Branch rosuvastati Yes [id number] 10mg Take 1 [facility] n 10 mg 6-08 tablet by [facility] of tablet 00:00: mouth at [place] [address] bedtime. Medical Branch rosuvastati Yes [id number] 10mg Take 1 [facility] n 10 mg 6-08 tablet by [facility] of tablet 00:00: mouth at [place] [address] bedtime. Medical Branch rosuvastati Yes [id number] 10mg Take 1 [facility] n 10 mg 6-08 tablet by [facility] of tablet 00:00: mouth at [place] bedtime. Medical Branch rosuvastati 2021- Yes [id number] 10mg Take 1 [facility] n 10 mg 6-08 tablet by [facility] of tablet 00:00: mouth at [place] bedtime. Medical Branch rosuvastati 0 Yes [id number] 10mg Take 1 [facility] n 10 mg 6-08 tablet by [facility]y of tablet 00:00: mouth at [place] bedtime. Medical Branch rosuvastati 2021-0 Yes [id number] 10mg Take 1 [facility] n 10 mg 6-08 tablet by [facility]y of tablet 00:00: mouth at [place] bedtime. Medical Branch rosuvastati 2021- Yes [id number] 10mg Take 1 [facility] n 10 mg 6-08 tablet by [facility] of tablet 00:00: mouth at [place] bedtime. Medical Branch rosuvastati Yes [id number] 10mg Take 1 [facility] n 10 mg 6-08 tablet by [facility] of tablet 00:00: mouth at [place] bedtime. Medical Branch rosuvastati Yes [id number] 10mg Take 1 [facility] n 10 mg 6-08 tablet by [facility] of tablet 00:00: mouth at [place] bedtime. Medical Branch rosuvastati Yes [id number] 10mg Take 1 [facility] n 10 mg 6-08 tablet by [facility] of tablet 00:00: mouth at [place] bedtime. Medical Branch rosuvastati Yes [id number] 10mg Take 1 [facility] n 10 mg 6-08 tablet by ity of tablet 00:00: mouth at [place] [address] bedtime. Medical Branch rosuvastati 2021-0 Yes [id number] 10mg Take 1 [facility] n 10 mg 6-08 tablet by [facility] of tablet 00:00: mouth at [place] [address] bedtime. Medical Branch rosuvastati 2021-0 Yes [id number] 10mg Take 1 [facility] n 10 mg 6-08 tablet by [facility] of tablet 00:00: mouth at [place] [address] bedtime. Medical Branch rosuvastati 2021-0 Yes [id number] 10mg Take 1 [facility] n 10 mg 6-08 tablet by [facility] of tablet 00:00: mouth at [place] [address] bedtime. Medical Branch rosuvastati 2021-0 Yes [id number] 10mg Take 1 [facility] n 10 mg 6-08 tablet by ity of tablet 00:00: mouth at [place] [address] bedtime. Medical Branch rosuvastati Yes [id number] 10mg Take 1 [facility] n 10 mg 6-08 tablet by ity of tablet 00:00: mouth at [place] [address] bedtime. Medical Branch rosuvastati Yes [id number] 10mg Take 1 [facility] n 10 mg 6-08 tablet by ity of tablet 00:00: mouth at [place] [address] bedtime. Medical Branch rosuvastati Yes [id number] 10mg Take 1 [facility] n 10 mg 6-08 tablet by it[facility] of tablet 00:00: mouth at [place] [address] bedtime. Medical Branch rosuvastati Yes [id number] 10mg Take 1 [facility] n 10 mg 6-08 tablet by ity of tablet 00:00: mouth at [place] [address] bedtime. Medical Branch rosuvastati Yes [id number] 10mg Take 1 [facility] n 10 mg 6-08 tablet by [facility]y of tablet 00:00: mouth at [place] [address] bedtime. Medical Branch rosuvastati Yes [id number] 10mg Take 1 [facility] n 10 mg 6-08 tablet by ity of tablet 00:00: mouth at [place] [address] bedtime. Medical Branch rosuvastati Yes [id number] 10mg Take 1 [facility] n 10 mg 6-08 tablet by ity of tablet 00:00: mouth at [place] [address] bedtime. Medical Branch rosuvastati Yes [id number] 10mg Take 1 [facility] n 10 mg 6-08 tablet by ity of tablet 00:00: mouth at [place] [address] bedtime. Medical Branch rosuvastati 2021- Yes [id number] 10mg Take 1 [facility] n 10 mg 6-08 tablet by [facility] of tablet 00:00: mouth at [place] [address] bedtime. Medical Branch rosuvastati 2021-0 Yes [id number] 10mg Take 1 [facility] n 10 mg 6-08 tablet by it[facility] of tablet 00:00: mouth at [place] [address] bedtime. Medical Branch rosuvastati Yes [id number] 10mg Take 1 [facility] n 10 mg 6-08 tablet by it[facility] of tablet 00:00: mouth at [place] [address] bedtime. Medical Branch rosuvastati 2021-0 Yes [id number] 10mg Take 1 [facility] n 10 mg 6-08 tablet by [facility] of tablet 00:00: mouth at [place] 00 bedtime. Medical Branch rosuvastati 0 Yes [id number] 10mg Take 1 [facility] n 10 mg 6-08 tablet by [facility] of tablet 00:00: mouth at [place] 00 bedtime. Medical Branch rosuvastati 0 Yes [id number] 10mg Take 1 [facility] n 10 mg 6-08 tablet by [facility] of tablet 00:00: mouth at [place] 00 bedtime. Medical Branch rosuvastati 2021-0 Yes [id number] 10mg Take 1 [facility] n 10 mg 6-08 tablet by ity of tablet 00:00: mouth at [place] 00 bedtime. [facility] Branch rosuvastati Yes [id number] 10mg Take 1 [facility] n 10 mg 6-08 tablet by ity of tablet 00:00: mouth at [place] 00 bedtime. [facility] Branch rosuvastati 0 Yes [id number] 10mg Take 1 [facility] n 10 mg 6-08 tablet by ity of tablet 00:00: mouth at [place] 00 bedtime. [facility] [place] [facility] rosuvastati 0 Yes [id number] 10mg Take 1 Univers n 10 mg 6-08 tablet by ity of tablet 00:00: mouth at [place] 00 bedtime. [facility] [place] [facility] rosuvastati 0 Yes [id number] 10mg Take 1 Univers n 10 mg 6-08 tablet by ity of tablet 00:00: mouth at [place] 00 bedtime. [facility] [place] [facility] rosuvastati Yes [id number] 10mg Take 1 Univers n 10 mg 6-08 tablet by ity of tablet 00:00: mouth at [place] 00 bedtime. Medical Branch rosuvastati 2021-0 Yes [id number] 10mg Take 1 [facility] n 10 mg 6-08 tablet by ity of tablet 00:00: mouth at [place] 00 bedtime. Medical Branch rosuvastati 2021-0 Yes [id number] 10mg Take 1 Univers n 10 mg 6-08 tablet by ity of tablet 00:00: mouth at [place] 00 bedtime. [facility] [place] [facility] rosuvastati 0 2021- No [id number] 10mg Take 1 Univers n 10 mg 6-08 10-13 tablet by ity of tablet 00:00: 00:00 mouth at [place] 00 :00 bedtime. Medical Branch water for 2021- No PRN, [facility] irrigation 03-02 Starting ity of irrigation 14:20: 15:50 on Tue [place] solution 00 :27 03/02/22 at Medica l 0920, Branch Until Tue03/02/22 at 1050, Routine, Intra-op simethicone 2021- No PRN, [facility] (GAS RELIEF 03-02 Starting ity of (SIMETHICON 14:20: 15:50 on Tue [place] as E)) 40 00 :27 03/02/22 at Medical mg/0.6 mL 0920, Branch drops Until Tue03/02/22 at 1050, Routine, Intra-op lactated 2021- No 1000mL at 42 [facility] rs ringers IV 03-02 06-07 mL/hr, ity of infusion 12:45: 12:59 1,000 mL, [place] as 1,000 mL 00 :00 IV Medical Infusion, Branch ONCE, 1 dose, On Tue03/02/22 at 0745, Routine, DSU Pre-op lactated 2021- No 1000mL at 42 [facility] ringers IV 03-02 06-07 mL/hr, ity of infusion 12:45: 12:59 1,000 mL, [place] as 1,000 mL 00 :00 IV Medical Infusion, Branch ONCE, 1 dose, On Tue03/02/22 at 0745, Routine, DSU Pre-op FOLIC ACID Yes Take by [facility] ORAL 6-07 mouth ity of 11:23: daily. [address] MULTIVIT Yes Take by [facility] s &MINERALS/F - mouth. ity of ERROUS FUM 11:23: [place] ([place] [address] Medical VITAMIN Branch ORAL) METHYLCELLU Yes [facility] s LOSE (FIBER 6-07 ity of THERAPY 11:23: [place] MISC) 09 [facility] DOCUSATE Yes Take by [facility] s SODIUM 6- mouth. ity of (COLACE 11:23: [place] ORAL) 09 [facility] vitamin C Yes 1000mg Take 1,000 Univers with derrell 6-07 mg by ity of hips 11:23: mouth [place] (VITAMIN C) 09 daily. Medica l 1,000 mg Branch tablet cholecalcif 2021-0 Yes 1000U Take 1,000 Univers edmar, 6-07 Units by ity of vitamin D3, 11:23: mouth [place] (VITAMIN 09 daily. Medical D3) 1,000 Branch unit tablet CRANBERRY 2021-0 Yes Take by [facility] FRUIT 6-07 mouth ity of EXTRACT 11:23: daily. [place] ([place] Medical ORAL) Branch CALCIUM 0 Yes Take by Univers ORAL 6-07 mouth ity of 11:23: daily. [place] [facility] DOCOSAHEXAN 0 Yes 1000mg Take 1,000 Univers OIC 6-07 mg by ity of ACID/EPA 11:23: mouth [place] (FISH OIL 09 daily. Medical ORAL) Branch BIOTIN ORAL 0 Yes Take by Uni vers 6-07 mouth. ity of 11:23: Medical Branch FOLIC ACID 0 Yes Take by Univ ers ORAL 6-07 mouth ity of 11:23: daily. [place] [facility] MULTIVIT Yes Take by [facility] s &MINERALS/F 6-07 mouth. ity of ERROUS FUM 11:23: [place] (MULTI 09 Medical VITAMIN Branch ORAL) METHYLCELLU 0 Yes [facility] LOSE (FIBER 6-07 ity of THERAPY 11:23: [place] MISC) 09 Medical Branch DOCUSATE 0 Yes Take by Univer s SODIUM 6-07 mouth. ity of (COLACE 11:23: [place] ORAL) 09 Medical Branch vitamin C 0 Yes 1000mg Take 1,000 Univers with derrell 6-07 mg by ity of hips 11:23: mouth [place] (VITAMIN C) 09 daily. Medica l 1,000 mg Branch tablet cholecalcif 2021-0 Yes 1000U Take 1,000 Univers edmar, 6-07 Units by ity of vitamin D3, 11:23: mouth [place] (VITAMIN 09 daily. Medical D3) 1,000 Branch unit tablet CRANBERRY 2021-0 Yes Take by [facility] FRUIT 6-07 mouth ity of EXTRACT 11:23: daily. [place] ([place] Medical ORAL) Branch CALCIUM 0 Yes Take by Univers ORAL 6-07 mouth ity of 11:23: daily. [place] [facility] DOCOSAHEXAN 2022-0 Yes 1000mg Take 1,000 Univers OIC 6-07 mg by ity of ACID/EPA 11:23: mouth [place] (FISH OIL 09 daily. Medical ORAL) Branch BIOTIN ORAL Yes Take by Uni vers 6-07 mouth. ity of 11:23: Medical Branch FOLIC ACID Yes Take by Univ ers ORAL 6-07 mouth ity of 11:23: daily. [place] [facility] MULTIVIT Yes Take by Univer s &MINERALS/F 6-07 mouth. ity of ERROUS FUM 11:23: [place] (MULTI 09 Medical VITAMIN Branch ORAL) METHYLCELLU Yes [facility] LOSE (FIBER 6-07 ity of THERAPY 11:23: [place] MISC) 09 Medical Branch DOCUSATE Yes Take by [facility] SODIUM 6-07 mouth. ity of (COLACE 11:23: [place] ORAL) 09 Medical Branch vitamin C Yes 1000mg Take 1,000 Univers with derrell 6-07 mg by ity of hips 11:23: mouth [place] (VITAMIN C) 09 daily. Medica l 1,000 mg Branch tablet cholecalcif Yes 1000U Take 1,000 Univers edmar, 6-07 Units by ity of vitamin D3, 11:23: mouth [place] (VITAMIN 09 daily. Medical D3) 1,000 Branch unit tablet CRANBERRY Yes Take by Unive rs FRUIT 6-07 mouth ity of EXTRACT 11:23: daily. [place] ([place] Medical ORAL) Branch CALCIUM Yes Take by Univers ORAL 6-07 mouth ity of 11:23: daily. [place] [facility] DOCOSAHEXAN Yes 1000mg Take 1,000 Univers OIC 6-07 mg by ity of ACID/EPA 11:23: mouth [place] (FISH OIL 09 daily. Medical ORAL) Branch BIOTIN ORAL Yes Take by Uni vers 6-07 mouth. ity of 11:23: Medical Branch FOLIC ACID Yes Take by Univ ers ORAL 6-07 mouth ity of 11:23: daily. [place] [facility] MULTIVIT Yes Take by Univer s &MINERALS/F 6-07 mouth. ity of ERROUS FUM 11:23: [place] (MULTI 09 Medical VITAMIN Branch ORAL) METHYLCELLU Yes Univer s LOSE (FIBER 6-07 ity of THERAPY 11:23: [place] [facility]) 09 Medical Branch DOCUSATE Yes Take by [facility] SODIUM 6-07 mouth. ity [...] Branch unit tablet CRANBERRY Yes Take by [facility] rs FRUIT 6-07 mouth ity of EXTRACT 11:23: daily. [place] ([place] Medical ORAL) Branch CALCIUM Yes Take by Univers ORAL 6-07 mouth ity of 11:23: daily. [place] Medical Branch DOCOSAHEXAN Yes 1000mg Take 1,000 Univers OIC 6-07 mg by ity of ACID/EPA 11:23: mouth [place] (FISH OIL 09 daily. Medical ORAL) Branch BIOTIN ORAL Yes Take by Uni vers 6-07 mouth. ity of 11:23: [place] [facility] FOLIC ACID Yes Take by Univ ers ORAL 6-07 mouth ity of 11:23: daily. [place] [facility] MULTIVIT Yes Take by [facility] &MINERALS/F 6-07 mouth. ity of ERROUS FUM 11:23: [place] (MULTI 09 Medical VITAMIN Branch ORAL) METHYLCELLU Yes Univer s LOSE (FIBER 6-07 ity of THERAPY 11:23: [place] [facility]) 09 Medical Branch DOCUSATE Yes Take by [facility] SODIUM 6-07 mouth. ity [...] unit tablet CRANBERRY Yes Take by [facility] FRUIT 6-07 mouth ity of EXTRACT 11:23: daily. [place] ([place] Medical ORAL) Branch CALCIUM Yes Take by Univers ORAL 6-07 mouth ity of 11:23: daily. [place] [facility] DOCOSAHEXAN Yes 1000mg Take 1,000 Univers OIC 6-07 mg by ity of ACID/EPA 11:23: mouth [place] (FISH OIL 09 daily. Medical ORAL) Branch BIOTIN ORAL Yes Take by Uni vers 6-07 mouth. ity of 11:23: Medical Branch FOLIC ACID Yes Take by Univ ers ORAL 6-07 mouth ity of 11:23: daily. [place] [facility] MULTIVIT Yes Take by [facility] &MINERALS/F 6-07 mouth. ity of ERROUS FUM 11:23: [place] (MULTI 09 Medical VITAMIN Branch ORAL) METHYLCELLU Yes Univer s LOSE (FIBER 6-07 ity of THERAPY 11:23: [place] MISC) 09 Medical Branch DOCUSATE Yes Take by [facility] SODIUM 6-07 mouth. ity of (COLACE 11:23: [place] ORAL) Medical Branch vitamin C Yes 1000mg Take 1,000 Univers with derrell 6-07 mg by ity of hips 11:23: mouth [place] (VITAMIN C) 09 daily. Medica l 1,000 mg Branch tablet cholecalcif Yes 1000U Take 1,000 Univers edmar, 6-07 Units by ity of vitamin D3, 11:23: mouth [place] (VITAMIN 09 daily. Medical D3) 1,000 Branch unit tablet CRANBERRY Yes Take by [facility] FRUIT 6-07 mouth ity of EXTRACT 11:23: daily. [place] ([place] Medical ORAL) Branch CALCIUM Yes Take by Univers ORAL 6-07 mouth ity of 11:23: daily. [place] [facility] DOCOSAHEXAN Yes 1000mg Take 1,000 Univers OIC 6-07 mg by ity of ACID/EPA 11:23: mouth [place] (FISH OIL 09 daily. Medical ORAL) Branch BIOTIN ORAL Yes Take by Uni vers 6-07 mouth. ity of 11:23: Medical Branch FOLIC ACID Yes Take by Univ ers ORAL 6-07 mouth ity of 11:23: daily. [place] [facility] MULTIVIT Yes Take by Univer s &MINERALS/F 6-07 mouth. ity of ERROUS FUM 11:23: [place] (MULTI 09 Medical VITAMIN Branch ORAL) METHYLCELLU Yes Univer s LOSE (FIBER 6-07 ity of THERAPY 11:23: [place] [facility]) 09 Medical Branch DOCUSATE Yes Take by Univer s SODIUM 6-07 mouth. ity of (COLACE 11:23: [place] ORAL) 09 Medical Branch vitamin C Yes 1000mg Take 1,000 Univers with derrell 6-07 mg by ity of hips 11:23: mouth [place] (VITAMIN C) 09 daily. Medica l 1,000 mg Branch tablet cholecalcif Yes 1000U Take 1,000 Univers edmar, 6-07 Units by ity of vitamin D3, 11:23: mouth [place] (VITAMIN 09 daily. Medical D3) 1,000 Branch unit tablet CRANBERRY Yes Take by Unive rs FRUIT 6-07 mouth ity of EXTRACT 11:23: daily. [place] ([place] Medical ORAL) Branch CALCIUM Yes Take by Univers ORAL 6-07 mouth ity of 11:23: daily. [place] Medical Branch DOCOSAHEXAN Yes 1000mg Take 1,000 Univers OIC 6-07 mg by ity of ACID/EPA 11:23: mouth [place] (FISH OIL 09 daily. Medical ORAL) Branch BIOTIN ORAL Yes Take by Uni vers 6-07 mouth. ity of 11:23: Medical Branch FOLIC ACID Yes Take by Univ ers ORAL 6-07 mouth ity of 11:23: daily. [place] [facility] MULTIVIT Yes Take by Univer s &MINERALS/F 6-07 mouth. ity of ERROUS FUM 11:23: [place] (MULTI 09 Medical VITAMIN Branch ORAL) METHYLCELLU 0 Yes Univer s LOSE (FIBER 6-07 ity of THERAPY 11:23: [place] [facility]) 09 Medical Branch DOCUSATE Yes Take by [facility] s SODIUM 6-07 mouth. ity of [...] Branch unit tablet CRANBERRY Yes Take by [facility] rs FRUIT 6-07 mouth ity of EXTRACT 11:23: daily. [place] ([place] Medical ORAL) Branch CALCIUM Yes Take by [facility] ORAL 6-07 mouth ity of 11:23: daily. [place] Medical Branch DOCOSAHEXAN Yes 1000mg Take 1,000 Univers OIC 6-07 mg by ity of ACID/EPA 11:23: mouth [place] (FISH OIL 09 daily. Medical ORAL) Branch BIOTIN ORAL Yes Take by Uni vers 6-07 mouth. ity of 11:23: [place] [address] Medical Branch FOLIC ACID Yes Take by [facility] ers ORAL 6-07 mouth ity of 11:23: daily. [place] [address] Medical Branch MULTIVIT Yes Take by [facility] &MINERALS/F 6-07 mouth. ity of ERROUS FUM 11:23: [place] (MULTI 09 Medical VITAMIN Branch ORAL) METHYLCELLU Yes [facility] s LOSE (FIBER 6-07 ity of THERAPY 11:23: [place] MISC) 09 Medical Branch DOCUSATE Yes Take by [facility] s SODIUM 6-07 mouth. ity of [...] unit tablet CRANBERRY Yes Take by [facility] FRUIT 6-07 mouth ity of EXTRACT 11:23: daily. [place] ([place] Medical ORAL) Branch CALCIUM Yes Take by Univers ORAL 6-07 mouth ity of 11:23: daily. [place] Medical Branch DOCOSAHEXAN Yes 1000mg Take 1,000 Univers OIC 6-07 mg by ity of ACID/EPA 11:23: mouth [place] (FISH OIL 09 daily. Medical ORAL) Branch BIOTIN ORAL Yes Take by Uni vers 6-07 mouth. ity of 11:23: [place] [facility] FOLIC ACID Yes Take by Univ ers ORAL 6-07 mouth ity of 11:23: daily. [place] [facility] MULTIVIT Yes Take by [facility] s &MINERALS/F 6-07 mouth. ity of ERROUS FUM 11:23: [place] (MULTI 09 Medical VITAMIN Branch ORAL) METHYLCELLU Yes [facility] s LOSE (FIBER 6-07 ity of THERAPY 11:23: [place] MISC) Medical Branch DOCUSATE Yes Take by [facility] s SODIUM 6-07 mouth. ity of (COLACE 11:23: [place] ORAL) Medical Branch vitamin C Yes 1000mg Take 1,000 Univers with derrell 6-07 mg by ity of hips 11:23: mouth [place] (VITAMIN C) 09 daily. Medica l 1,000 mg Branch tablet cholecalcif Yes 1000U Take 1,000 Univers edmar, 6-07 Units by ity of vitamin D3, 11:23: mouth [place] (VITAMIN 09 daily. Medical D3) 1,000 Branch unit tablet CRANBERRY Yes Take by [facility] rs FRUIT 6-07 mouth ity of EXTRACT 11:23: daily. [place] ([place] Medical ORAL) Branch CALCIUM Yes Take by Univers ORAL 6-07 mouth ity of 11:23: daily. [place] Medical Branch DOCOSAHEXAN Yes 1000mg Take 1,000 Univers OIC 6-07 mg by ity of ACID/EPA 11:23: mouth [place] (FISH OIL 09 daily. Medical ORAL) Branch BIOTIN ORAL Yes Take by Uni vers 6-07 mouth. ity of 11:23: [place] [address] Medical Branch FOLIC ACID Yes Take by [facility] ers ORAL 6-07 mouth ity of 11:23: daily. [place] [address] Medical Branch MULTIVIT Yes Take by [facility] &MINERALS/F 6-07 mouth. ity of ERROUS FUM 11:23: [place] (MULTI Medical VITAMIN Branch ORAL) METHYLCELLU Yes Univer s LOSE (FIBER 6-07 ity of THERAPY 11:23: [place] [facility]) 09 Medical Branch DOCUSATE Yes Take by [facility] SODIUM 6-07 mouth. ity of (COLACE 11:23: [place] ORAL) 09 Medical Branch vitamin C Yes 1000mg Take 1,000 Univers with derrell 6-07 mg by ity of hips 11:23: mouth [place] (VITAMIN C) 09 daily. Medica l 1,000 mg Branch tablet cholecalcif Yes 1000U Take 1,000 Univers edmar, 6-07 Units by ity of vitamin D3, 11:23: mouth [place] (VITAMIN 09 daily. Medical D3) 1,000 Branch unit tablet CRANBERRY Yes Take by [facility] rs FRUIT 6-07 mouth ity of EXTRACT 11:23: daily. [place] ([place] 09 Medical ORAL) Branch CALCIUM Yes Take by Univers ORAL 6-07 mouth ity of 11:23: daily. [place] [address] Medical Branch DOCOSAHEXAN Yes 1000mg Take 1,000 Univers OIC 6-07 mg by ity of ACID/EPA 11:23: mouth [place] (FISH OIL 09 daily. Medical ORAL) Branch BIOTIN ORAL Yes Take by Uni vers 6-07 mouth. ity of 11:23: [place] [address] Medical Branch FOLIC ACID Yes Take by [facility] ers ORAL 6-07 mouth ity of 11:23: daily. [place] [address] Medical Branch MULTIVIT Yes Take by [facility] &MINERALS/F 6-07 mouth. ity of ERROUS FUM 11:23: [place] ([place] [address] Medical VITAMIN Branch ORAL) METHYLCELLU Yes Univer s LOSE (FIBER 6-07 ity of THERAPY 11:23: [place] MIS) 09 Medical Branch DOCUSATE Yes Take by [facility] s SODIUM 6-07 mouth. ity of [...] 6-07 mouth ity of EXTRACT 11:23: daily. [place] ([place] Medical ORAL) Branch CALCIUM Yes Take by Univers ORAL 6-07 mouth ity of 11:23: daily. [place] Medical Branch DOCOSAHEXAN Yes 1000mg Take 1,000 Univers OIC 6-07 mg by ity of ACID/EPA 11:23: mouth [place] (FISH OIL 09 daily. Medical ORAL) Branch BIOTIN ORAL Yes Take by Uni vers 6-07 mouth. ity of 11:23: Medical Branch FOLIC ACID Yes Take by Univ ers ORAL 6-07 mouth ity of 11:23: daily. [place] [facility] Branch MULTIVIT Yes Take by Univer s &MINERALS/F 6-07 mouth. ity of ERROUS FUM 11:23: [place] (MULTI 09 Medical VITAMIN Branch ORAL) METHYLCELLU Yes Univer s LOSE (FIBER 6-07 ity of THERAPY 11:23: [place] MISC) 09 Medical Branch DOCUSATE Yes Take [...] by ity of vitamin D3, 11:23: mouth [place] (VITAMIN 09 daily. Medical D3) 1,000 Branch unit tablet CRANBERRY Yes Take by Unive rs FRUIT 6-07 mouth ity of EXTRACT 11:23: daily. [place] ([place] 09 Medical ORAL) Branch CALCIUM Yes Take by Univers ORAL 6-07 mouth ity of 11:23: daily. [place] Medical Branch DOCOSAHEXAN Yes 1000mg Take 1,000 Univers OIC 6-07 mg by ity of ACID/EPA 11:23: mouth [place] (FISH OIL 09 daily. Medical ORAL) Branch BIOTIN ORAL Yes Take by Uni vers 6-07 mouth. ity of 11:23: Medical Branch FOLIC ACID Yes Take by Univ ers ORAL 6-07 mouth ity of 11:23: daily. [place] [facility] MULTIVIT Yes Take by [facility] &MINERALS/F 6-07 mouth. ity of ERROUS FUM 11:23: [place] (MULTI 09 Medical VITAMIN Branch ORAL) METHYLCELLU Yes [facility] s LOSE (FIBER 6-07 ity of THERAPY 11:23: [place] MISC) Medical Branch DOCUSATE Yes Take by [facility] SODIUM 6-07 mouth. ity of (COLACE 11:23: [place] ORAL) Medical Branch vitamin C Yes 1000mg Take 1,000 Univers with [place]rell 6-07 mg by ity of hips 11:23: mouth [place] (VITAMIN C) 09 daily. Medica l 1,000 mg Branch tablet cholecalcif Yes 1000U Take 1,000 Univers edmar, 6-07 Units by ity of vitamin D3, 11:23: mouth [place] (VITAMIN 09 daily. Medical D3) 1,000 Branch unit tablet CRANBERRY Yes Take by [facility] rs FRUIT 6-07 mouth ity of EXTRACT 11:23: daily. [place] ([place] Medical ORAL) Branch CALCIUM Yes Take by Univers ORAL 6-07 mouth ity of 11:23: daily. [place] Medical Branch DOCOSAHEXAN Yes 1000mg Take 1,000 Univers OIC 6-07 mg by ity of ACID/EPA 11:23: mouth [place] (FISH OIL 09 daily. Medical ORAL) Branch BIOTIN ORAL Yes Take by Uni vers 6-07 mouth. ity of 11:23: [place] Medical Branch FOLIC ACID Yes Take by Univ ers ORAL 6-07 mouth ity of 11:23: daily. [place] [facility] Branch MULTIVIT Yes Take by Univer s &MINERALS/F 6-07 mouth. ity of ERROUS FUM 11:23: [place] (MULTI 09 Medical VITAMIN Branch ORAL) METHYLCELLU Yes [facility] (FIBER 6-07 ity of THERAPY 11:23: [place] [facility]) Medical Branch DOCUSATE Yes Take by Univer [...] by ity of vitamin D3, 11:23: mouth [place] (VITAMIN 09 daily. Medical D3) 1,000 Branch unit tablet CRANBERRY Yes Take by [facility] rs FRUIT 6-07 mouth ity of EXTRACT 11:23: daily. [place] ([place] 09 Medical ORAL) Branch CALCIUM Yes Take by Univers ORAL 6-07 mouth ity of 11:23: daily. [place] [address] Medical Branch DOCOSAHEXAN Yes 1000mg Take 1,000 Univers OIC 6-07 mg by ity of ACID/EPA 11:23: mouth [place] (FISH OIL 09 daily. Medical ORAL) Branch BIOTIN ORAL Yes Take by Uni vers 6-07 mouth. ity of 11:23: [place] [address] Medical Branch FOLIC ACID Yes Take by Univ ers ORAL 6-07 mouth ity of 11:23: daily. [place] [address] Medical Branch MULTIVIT Yes Take by [facility] &MINERALS/F 6-07 mouth. ity of ERROUS FUM 11:23: [place] (MULTI 09 Medical VITAMIN Branch ORAL) METHYLCELLU 0 Yes Univer s LOSE (FIBER 6-07 ity of THERAPY 11:23: [place] [facility]) Medical Branch DOCUSATE Yes Take by [facility] SODIUM 6-07 mouth. ity [...] 6-07 mouth ity of EXTRACT 11:23: daily. [place] ([place] Medical ORAL) Branch CALCIUM Yes Take by Univers ORAL 6-07 mouth ity of 11:23: daily. [place] Medical Branch DOCOSAHEXAN Yes 1000mg Take 1,000 Univers OIC 6-07 mg by ity of ACID/EPA 11:23: mouth [place] (FISH OIL 09 daily. Medical ORAL) Branch BIOTIN ORAL Yes Take by Uni vers 6-07 mouth. ity of 11:23: Medical Branch FOLIC ACID Yes Take by Univ ers ORAL 6-07 mouth ity of 11:23: daily. [place] Medical Branch MULTIVIT Yes Take by Univer s &MINERALS/F 6-07 mouth. ity of ERROUS FUM 11:23: [place] (MULTI 09 Medical VITAMIN Branch ORAL) METHYLCELLU Yes Univer s LOSE (FIBER 6-07 ity of THERAPY 11:23: [place] MISC) 09 Medical Branch DOCUSATE Yes Take by Univer s SODIUM 6-07 mouth. ity of (COLACE 11:23: [place] ORAL) 09 Medical Branch vitamin C Yes 1000mg Take 1,000 Univers with derrell 6-07 mg by ity of hips 11:23: mouth [place] (VITAMIN C) 09 daily. Medica l 1,000 mg Branch tablet cholecalcif 0 Yes 1000U Take 1,000 Univers edmar, 6-07 Units by ity of vitamin D3, 11:23: mouth [place] (VITAMIN 09 daily. Medical D3) 1,000 Branch unit tablet CRANBERRY 0 Yes Take by Unive rs FRUIT 6-07 mouth ity of EXTRACT 11:23: daily. [place] ([place] Medical ORAL) Branch CALCIUM Yes Take by Univers ORAL 6-07 mouth ity of 11:23: daily. [place] Medical Branch DOCOSAHEXAN Yes 1000mg Take 1,000 Univers OIC 6-07 mg by ity of ACID/EPA 11:23: mouth [place] (FISH OIL 09 daily. Medical ORAL) Branch BIOTIN ORAL Yes Take by Uni vers 6-07 mouth. ity of 11:23: Medical Branch FOLIC ACID Yes Take by Univ ers ORAL 6-07 mouth ity of 11:23: daily. [place] Medical Branch MULTIVIT Yes Take by Univer s &MINERALS/F 6-07 mouth. ity of ERROUS FUM 11:23: [place] (MULTI 09 Medical VITAMIN Branch ORAL) METHYLCELLU Yes [facility] (FIBER 6-07 ity of THERAPY 11:23: [place] MISC) 09 Medical Branch DOCUSATE Yes Take by Univer s SODIUM 6-07 mouth. ity of (COLACE 11:23: [place] ORAL) 09 Medical Branch vitamin C Yes 1000mg Take 1,000 Univers with derrell 6-07 mg by ity of hips 11:23: mouth [place] (VITAMIN C) 09 daily. Medica l 1,000 mg Branch tablet cholecalcif Yes 1000U Take 1,000 Univers edmar, 6-07 Units by ity of vitamin D3, 11:23: mouth [place] (VITAMIN 09 daily. Medical D3) 1,000 Branch unit tablet CRANBERRY Yes Take by Unive rs FRUIT 6-07 mouth ity of EXTRACT 11:23: daily. [place] ([place] Medical ORAL) Branch CALCIUM Yes Take by Univers ORAL 6-07 mouth ity of 11:23: daily. [place] Medical Branch DOCOSAHEXAN Yes 1000mg Take 1,000 Univers OIC 6-07 mg by ity of ACID/EPA 11:23: mouth [place] (FISH OIL 09 daily. Medical ORAL) Branch BIOTIN ORAL Yes Take by Uni vers 6-07 mouth. ity of 11:23: Medical Branch FOLIC ACID Yes Take by Univ ers ORAL 6-07 mouth ity of 11:23: daily. [place] Medical Branch MULTIVIT Yes Take by Univer s &MINERALS/F 6-07 mouth. ity of ERROUS FUM 11:23: [place] (MULTI 09 Medical VITAMIN Branch ORAL) METHYLCELLU 0 Yes Univer s LOSE (FIBER 6-07 ity of THERAPY 11:23: [place] [facility]) 09 Medical Branch DOCUSATE Yes Take by [...] Branch unit tablet CRANBERRY Yes Take by [facility] rs FRUIT 6-07 mouth ity of EXTRACT 11:23: daily. [place] (CR[place]Y 09 Medical ORAL) Branch CALCIUM Yes Take by Univers ORAL 6-07 mouth ity of 11:23: daily. [place] Medical Branch DOCOSAHEXAN Yes 1000mg Take 1,000 Univers OIC 6-07 mg by ity of ACID/EPA 11:23: mouth [place] (FISH OIL 09 daily. Medical ORAL) Branch BIOTIN ORAL Yes Take by Uni vers 6-07 mouth. ity of 11:23: [place] [address] Medical Branch FOLIC ACID Yes Take by Univ ers ORAL 6-07 mouth ity of 11:23: daily. [place] [address] Medical Branch MULTIVIT Yes Take by [facility] &[facility]ERALS/F 6-07 mouth. ity of ERROUS FUM 11:23: [place] (MULTI 09 Medical VITAMIN Branch ORAL) METHYLCELLU Yes Univer s LOSE (FIBER 6-07 ity of THERAPY 11:23: [facility]) 09 Medical Branch DOCUSATE 0 Yes Take by [facility] SODIUM 6-07 mouth. ity of (COLACE 11:23: [place] ORAL) 09 Medical Branch vitamin C Yes [...] unit tablet CRANBERRY Yes [facility] 6-07 mouth ity of EXTRACT 11:23: daily. [place] (CRAN[place]Y Medical ORAL) Branch CALCIUM Yes Take by Univers ORAL 6-07 mouth ity of 11:23: daily. [place] Medical Branch DOCOSAHEXAN Yes 1000mg Take 1,000 Univers OIC 6-07 mg by ity of ACID/EPA 11:23: mouth [place] (FISH OIL 09 daily. Medical ORAL) Branch BIOTIN ORAL Yes Take by Uni vers 6-07 mouth. ity of 11:23: Medical Branch FOLIC ACID Yes Take by Univ ers ORAL 6-07 mouth ity of 11:23: daily. [place] [facility] MULTIVIT Yes Take by [facility] [facility] s &MINERALS/F 6-07 mouth. ity of ERROUS FUM 11:23: [place] (MULTI 09 Medical VITAMIN Branch ORAL) [facility]U [facility] (FIBER 6-07 ity of THERAPY 11:23: [place] MISC) 09 Medical Branch DOCUSATE Yes Take by [facility] SODIUM 6-07 mouth. ity of (COLACE 11:23: [place] ORAL) 09 Medical Branch vitamin C Yes 1000mg Take 1,000 [facility] with derrell 6-07 mg by ity of hips 11:23: mouth [place] (VITAMIN C) 09 daily. Medica l 1,000 mg Branch tablet cholecalcif Yes 1000U Take 1,000 [facility] edmar, 6-07 Units by ity of vitamin D3, 11:23: mouth [place] (VITAMIN 09 daily. Medical D3) 1,000 Branch unit tablet CRANBERRY Yes Take by [facility] rs FRUIT 6-07 mouth ity of EXTRACT 11:23: daily. [place] (CRANBERRY 09 Medical ORAL) Branch CALCIUM Yes Take by [facility] ORAL 6-07 mouth ity of 11:23: daily. [place] [facility] Branch DOCOSAHEXAN Yes 1000mg Take 1,000 [facility] OIC 6-07 mg by ity of ACID/EPA 11:23: mouth [place] (FISH OIL 09 daily. Medical ORAL) Branch BIOTIN ORAL Yes Take by Uni vers 6-07 mouth. ity of 11:23: Medical Branch FOLIC ACID Yes Take by Univ ers ORAL 6-07 mouth ity of 11:23: daily. [place] [facility] MULTIVIT Yes Take by Univer s &MINERALS/F 6-07 mouth. ity of ERROUS FUM 11:23: [place] (MULTI 09 Medical VITAMIN Branch ORAL) METHYLCELLU 0 Yes Univer s LOSE (FIBER 6-07 ity of THERAPY 11:23: [place] [facility]) 09 Medical Branch DOCUSATE Yes Take by Univer s SODIUM 6-07 mouth. ity of (COLACE 11:23: [place] ORAL) Medical Branch vitamin C Yes 1000mg Take 1,000 [facility] with derrell 6-07 mg by ity of hips 11:23: mouth [place] (VITAMIN C) 09 daily. Medica l 1,000 mg Branch tablet cholecalcif Yes 1000U Take 1,000 [facility] edmar, 6-07 Units by ity of vitamin D3, 11:23: mouth [place] (VITAMIN 09 daily. Medical D3) 1,000 Branch unit tablet CRANBERRY Yes Take by Unive rs FRUIT 6-07 mouth ity of EXTRACT 11:23: daily. [place] (CRANBERRY 09 Medical ORAL) Branch CALCIUM Yes Take by [facility] ORAL 6-07 mouth ity of 11:23: daily. [place] [facility] Branch DOCOSAHEXAN Yes 1000mg Take 1,000 [facility] OIC 6-07 mg by ity of ACID/EPA 11:23: mouth [place] (FISH OIL 09 daily. Medical ORAL) Branch BIOTIN ORAL Yes Take by Uni vers 6-07 mouth. ity of 11:23: Medical Branch FOLIC ACID 0 Yes Take by Univ ers ORAL 6-07 mouth ity of 11:23: daily. [place] [facility] MULTIVIT 0 Yes Take by Univer s &MINERALS/F 6-07 mouth. ity of ERROUS FUM 11:23: [place] (MULTI 09 Medical VITAMIN Branch ORAL) METHYLCELLU 0 Yes Univer s LOSE (FIBER 6-07 ity of THERAPY 11:23: [place] [facility]) 09 Medical Branch DOCUSATE Yes Take by [...] unit tablet CRANBERRY Yes [facility] FRUIT 6-07 mouth ity of EXTRACT 11:23: daily. [place] (CRANBERRY 09 Medical ORAL) Branch CALCIUM Yes Take by Univers ORAL 6-07 mouth ity of 11:23: daily. [place] [facility] Branch DOCOSAHEXAN Yes 1000mg Take 1,000 [facility] OIC 6-07 mg by ity of ACID/EPA 11:23: mouth [place] (FISH OIL 09 daily. Medical ORAL) Branch BIOTIN ORAL Yes Take by Uni vers 6-07 mouth. ity of 11:23: [place] [address] Medical Branch FOLIC ACID Yes Take by Univ ers ORAL 6-07 mouth ity of 11:23: daily. [place] [address] Medical Branch MULTIVIT Yes Take by Univer s &MINERALS/F 6-07 mouth. ity of ERROUS FUM 11:23: [place] (MULTI 09 Medical VITAMIN Branch ORAL) METHYLCELLU Yes Univer s LOSE (FIBER 6-07 ity of THERAPY 11:23: [place] [facility]) 09 Medical Branch DOCUSATE Yes Take by Univer s SODIUM 6-07 mouth. ity of (COLACE 11:23: [place] ORAL) 09 Medical Branch vitamin C Yes 1000mg Take 1,000 [facility] with derrell 6-07 mg by ity of hips 11:23: mouth [place] (VITAMIN C) 09 daily. Medica l 1,000 mg Branch tablet cholecalcif 0 Yes 1000U Take 1,000 [facility] edmar, 6-07 Units by ity of vitamin D3, 11:23: mouth [place] (VITAMIN 09 daily. Medical D3) 1,000 Branch unit tablet CRANBERRY 2022-0 Yes Take by Unive rs FRUIT 6-07 mouth ity of EXTRACT 11:23: daily. [place] (CRANBERRY Medical ORAL) Branch CALCIUM Yes Take by Univers ORAL 6-07 mouth ity of 11:23: daily. [place] Medical Branch DOCOSAHEXAN Yes 1000mg Take 1,000 [facility] OIC 6-07 mg by ity of ACID/EPA 11:23: mouth [place] (FISH OIL 09 daily. Medical ORAL) Branch BIOTIN ORAL Yes Take by Uni vers 6-07 mouth. ity of 11:23: [place] [facility] Branch FOLIC ACID Yes Take by Univ ers ORAL 6-07 mouth ity of 11:23: daily. [place] [facility] Branch MULTIVIT Yes Take by Univer s &MINERALS/F 6-07 mouth. ity of ERROUS FUM 11:23: [place] (MULTI 09 Medical VITAMIN Branch ORAL) METHYLCELLU Yes Univer s LOSE (FIBER 6-07 ity of THERAPY 11:23: [place] MISC) Medical Branch DOCUSATE Yes Take by Univer s SODIUM 6-07 mouth. ity of (COLACE 11:23: [place] ORAL) Medical Branch vitamin C Yes 1000mg Take 1,000 [facility] with derrell 6-07 mg by ity of hips 11:23: mouth [place] (VITAMIN C) 09 daily. Medica l 1,000 mg Branch tablet cholecalcif Yes 1000U Take 1,000 [facility] edmar, 6-07 Units by ity of vitamin D3, 11:23: mouth [place] (VITAMIN 09 daily. Medical D3) 1,000 Branch unit tablet CRANBERRY Yes [facility] FRUIT 6-07 mouth ity of EXTRACT 11:23: daily. [place] (CRANBERRY Medical ORAL) Branch CALCIUM Yes Take by Univers ORAL 6-07 mouth ity of 11:23: daily. [place] [facility] Branch DOCOSAHEXAN Yes 1000mg Take 1,000 [facility] OIC 6-07 mg by ity of ACID/EPA 11:23: mouth [place] (FISH OIL 09 daily. Medical ORAL) Branch BIOTIN ORAL Yes Take by Uni vers 6-07 mouth. ity of 11:23: [place] [address] Medical Branch FOLIC ACID Yes Take by Univ ers ORAL 6-07 mouth ity of 11:23: daily. [place] [address] Medical Branch MULTIVIT Yes Take by Univer s &MINERALS/F 6-07 mouth. ity of ERROUS FUM 11:23: [place] ([place] [address] Medical VITAMIN Branch ORAL) METHYLCELLU Yes Univer s LOSE (FIBER 6-07 ity of THERAPY 11:23: [place] [facility]) 09 Medical Branch DOCUSATE Yes Take by Univer s SODIUM 6-07 mouth. ity of (COLACE 11:23: [place] ORAL) 09 Medical Branch vitamin C Yes 1000mg Take 1,000 [facility] with derrell 6-07 mg by ity of hips 11:23: mouth [place] (VITAMIN C) 09 daily. Medica l 1,000 mg Branch tablet cholecalcif Yes 1000U Take 1,000 [facility] edmar, 6-07 Units by ity of vitamin D3, 11:23: mouth [place] (VITAMIN 09 daily. Medical D3) 1,000 Branch unit tablet CRANBERRY Yes Take by Unive rs FRUIT 6-07 mouth ity of EXTRACT 11:23: daily. [place] (CRANBERRY Medical ORAL) Branch CALCIUM Yes Take by Univers ORAL 6-07 mouth ity of 11:23: daily. [place] [address] Medical Branch DOCOSAHEXAN Yes 1000mg Take 1,000 [facility] OIC 6-07 mg by ity of ACID/EPA 11:23: mouth [place] (FISH OIL 09 daily. Medical ORAL) Branch BIOTIN ORAL Yes Take by Uni vers 6-07 mouth. ity of 11:23: [place] [address] Medical Branch FOLIC ACID Yes Take by Univ ers ORAL 6-07 mouth ity of 11:23: daily. [place] [address] Medical Branch MULTIVIT Yes Take by Univer s &MINERALS/F 6-07 mouth. ity of ERROUS FUM 11:23: [place] ([place] [address] Medical VITAMIN Branch ORAL) METHYLCELLU Yes Univer s LOSE (FIBER 6-07 ity of THERAPY 11:23: [place] MIS) 09 Medical Branch DOCUSATE Yes Take [...] unit tablet CRANBERRY Yes [facility]UIT 6-07 mouth ity of EXTRACT 11:23: daily. [place] (CRANBERRY Medical ORAL) Branch CALCIUM Yes Take by Univers ORAL 6-07 mouth ity of 11:23: daily. [place] Medical Branch DOCOSAHEXAN Yes 1000mg Take 1,000 [facility] OIC 6-07 mg by ity of ACID/EPA 11:23: mouth [place] (FISH OIL 09 daily. Medical ORAL) Branch BIOTIN ORAL Yes Take by Uni vers 6-07 mouth. ity of 11:23: [place] [address] Medical Branch FOLIC ACID Yes Take by Univ ers ORAL 6-07 mouth ity of 11:23: daily. [place] [facility] Branch MULTIVIT Yes Take by [facility] s &MINERALS/F 6-07 mouth. ity of ERROUS FUM 11:23: [place] (MULTI 09 Medical VITAMIN Branch ORAL) METHYLCELLU Yes Univer s LOSE (FIBER 6-07 ity of THERAPY 11:23: [place] MIS) 09 Medical Branch DOCUSATE Yes Take by [facility] SODIUM 6-07 mouth. ity of (COLACE 11:23: [place] ORAL) 09 Medical Branch vitamin C Yes 1000mg Take 1,000 [facility] with derrell 6-07 mg by ity of hips 11:23: mouth [place] (VITAMIN C) 09 daily. Medica l 1,000 mg Branch tablet cholecalcif Yes 1000U Take 1,000 [facility] edmar, 6-07 Units by ity of vitamin D3, 11:23: mouth [place] (VITAMIN 09 daily. Medical D3) 1,000 Branch unit tablet CRANBERRY 0 Yes Take by [facility] rs FRUIT 6-07 mouth ity of EXTRACT 11:23: daily. [place] (CRANBERRY 09 Medical ORAL) Branch CALCIUM Yes Take by Univers ORAL 6-07 mouth ity of 11:23: daily. Medical Branch DOCOSAHEXAN Yes 1000mg Take 1,000 [facility] OIC 6-07 mg by ity of ACID/EPA 11:23: mouth [place] (FISH OIL 09 daily. Medical ORAL) Branch BIOTIN ORAL Yes Take by Uni vers 6-07 mouth. ity of 11:23: Medical Branch FOLIC ACID Yes Take by Univ ers ORAL 6-07 mouth ity of 11:23: daily. [place] Medical Branch MULTIVIT Yes Take by Univer s &MINERALS/F 6-07 mouth. ity of ERROUS FUM 11:23: [place] (MULTI 09 Medical VITAMIN Branch ORAL) METHYLCELLU Yes Univer s LOSE (FIBER 6-07 ity of THERAPY 11:23: [place] MISC) Medical Branch DOCUSATE Yes Take by Univer s SODIUM 6-07 mouth. ity of (COLACE 11:23: [place] ORAL) Medical Branch vitamin C Yes 1000mg Take 1,000 [facility] with derrell 6-07 mg by ity of hips 11:23: mouth [place] (VITAMIN C) 09 daily. Medica l 1,000 mg Branch tablet cholecalcif Yes 1000U Take 1,000 [facility] edmar, 6-07 Units by ity of vitamin D3, 11:23: mouth [place] (VITAMIN 09 daily. Medical D3) 1,000 Branch unit tablet CRANBERRY Yes Take by Unive rs FRUIT 6-07 mouth ity of EXTRACT 11:23: daily. [place] (CRANBERRY Medical ORAL) Branch CALCIUM Yes Take by Univers ORAL 6-07 mouth ity of 11:23: daily. [place] [facility] Branch DOCOSAHEXAN Yes 1000mg Take 1,000 [facility] OIC 6-07 mg by ity of ACID/EPA 11:23: mouth [place] (FISH OIL 09 daily. Medical ORAL) Branch BIOTIN ORAL Yes Take by Uni vers 6-07 mouth. ity of 11:23: Medical Branch FOLIC ACID Yes Take by Univ ers ORAL 6-07 mouth ity of 11:23: daily. [place] [address] Medical Branch MULTIVIT Yes Take by Univer s &MINERALS/F 6-07 mouth. ity of ERROUS FUM 11:23: [place] (MULTI 09 Medical VITAMIN Branch ORAL) METHYLCELLU Yes Univer s LOSE (FIBER 6-07 ity of THERAPY 11:23: [place] [facility]) Medical Branch DOCUSATE Yes Take by Univer s SODIUM 6-07 mouth. ity of (COLACE 11:23: [place] ORAL) Medical Branch vitamin C Yes 1000mg Take 1,000 [facility] with derrell 6-07 mg by ity of hips 11:23: mouth [place] (VITAMIN C) 09 daily. Medica l 1,000 mg Branch tablet cholecalcif Yes 1000U Take 1,000 [facility] edmar, 6-07 Units by ity of vitamin D3, 11:23: mouth [place] (VITAMIN 09 daily. Medical D3) 1,000 Branch unit tablet CRANBERRY Yes Take by [facility] rs FRUIT 6-07 mouth ity of EXTRACT 11:23: daily. [place] (CRANBERRY 09 Medical ORAL) Branch CALCIUM Yes Take by Univers ORAL 6-07 mouth ity of 11:23: daily. [place] [address] Medical Branch DOCOSAHEXAN Yes 1000mg Take 1,000 [facility] OIC 6-07 mg by ity of ACID/EPA 11:23: mouth [place] (FISH OIL 09 daily. Medical ORAL) Branch BIOTIN ORAL Yes Take by Uni vers 6-07 mouth. ity of 11:23: [place] [address] Medical Branch FOLIC ACID Yes Take by Univ ers ORAL 6-07 mouth ity of 11:23: daily. [place] [address] Medical Branch MULTIVIT Yes Take by Univer s &MINERALS/F 6-07 mouth. ity of ERROUS FUM 11:23: [place] (MULTI 09 Medical VITAMIN Branch ORAL) METHYLCELLU 0 Yes Univer s LOSE (FIBER 6-07 ity of THERAPY 11:23: [place] [facility]) Medical Branch DOCUSATE Yes Take by Univer s SODIUM 6-07 mouth. ity of (COLACE 11:23: [place] ORAL) 09 Medical Branch vitamin C Yes [...] 6-07 mouth ity of EXTRACT 11:23: daily. [place] (CRANBERRY Medical ORAL) Branch CALCIUM Yes Take by Univers ORAL 6-07 mouth ity of 11:23: daily. [place] Medical Branch DOCOSAHEXAN Yes 1000mg Take 1,000 [facility] OIC 6-07 mg by ity of ACID/EPA 11:23: mouth [place] (FISH OIL 09 daily. Medical ORAL) Branch BIOTIN ORAL Yes Take by Uni vers 6-07 mouth. ity of 11:23: [place] Medical Branch FOLIC ACID Yes Take by Univ ers ORAL 6-07 mouth ity of 11:23: daily. [place] [facility] Branch MULTIVIT Yes [facility] &MINERALS/F 6-07 mouth. ity of ERROUS FUM 11:23: [place] (MULTI 09 Medical VITAMIN Branch ORAL) METHYLCELLU Yes Univer s LOSE (FIBER 6-07 ity of THERAPY 11:23: [place] MISC) 09 Medical Branch DOCUSATE Yes Take by [facility] SODIUM 6-07 mouth. ity of (COLACE 11:23: [place] ORAL) 09 Medical Branch vitamin C Yes 1000mg Take 1,000 [facility] with derrell 6-07 mg by ity of hips 11:23: mouth [place] (VITAMIN C) 09 daily. Medica l 1,000 mg Branch tablet cholecalcif 0 Yes 1000U Take 1,000 [facility] edmar, 6-07 Units by ity of vitamin D3, 11:23: mouth [place] (VITAMIN 09 daily. Medical D3) 1,000 Branch unit tablet CRANBERRY 2021-0 Yes Take by Unive rs FRUIT 6-07 mouth ity of EXTRACT 11:23: daily. [place] (CRAN[place]Y Medical ORAL) Branch CALCIUM 0 Yes Take by Univers ORAL 6-07 mouth ity of 11:23: daily. [place] Medical Branch DOCOSAHEXAN Yes 1000mg Take 1,000 [facility] OIC 6-07 mg by ity of ACID/EPA 11:23: mouth [place] (FISH OIL 09 daily. Medical ORAL) Branch BIOTIN ORAL Yes Take by Uni vers 6-07 mouth. ity of 11:23: Medical Branch FOLIC ACID Yes Take by Univ ers ORAL 6-07 mouth ity of 11:23: daily. [place] Medical Branch MULTIVIT Yes Take by Univer s &MINERALS/F 6-07 mouth. ity of ERROUS FUM 11:23: [place] (MULTI 09 Medical VITAMIN Branch ORAL) METHYLCELLU Yes [facility] (FIBER 6-07 ity of THERAPY 11:23: [place] MISC) 09 Medical Branch DOCUSATE Yes Take by Univer s SODIUM 6-07 mouth. ity of (COLACE 11:23: [place] ORAL) 09 Medical Branch vitamin C Yes 1000mg Take 1,000 [facility] with derrell 6-07 mg by ity of hips 11:23: mouth [place] (VITAMIN C) 09 daily. Medica l 1,000 mg Branch tablet cholecalcif Yes 1000U Take 1,000 [facility] edmar, 6-07 Units by ity of vitamin D3, 11:23: mouth [place] (VITAMIN 09 daily. Medical D3) 1,000 Branch unit tablet CRANBERRY Yes Take by Unive rs FRUIT 6-07 mouth ity of EXTRACT 11:23: daily. [place] ([place] Medical ORAL) Branch CALCIUM Yes Take by Univers ORAL 6-07 mouth ity of 11:23: daily. [place] Medical Branch DOCOSAHEXAN Yes 1000mg Take 1,000 [facility] OIC 6-07 mg by ity of ACID/EPA 11:23: mouth [place] (FISH OIL 09 daily. Medical ORAL) Branch BIOTIN ORAL Yes Take by Uni vers 6-07 mouth. ity of 11:23: Medical Branch FOLIC ACID Yes Take by Univ ers ORAL 6-07 mouth ity of 11:23: daily. [place] Medical Branch MULTIVIT Yes Take by Univer s &MINERALS/F 6-07 mouth. ity of ERROUS FUM 11:23: [place] (MULTI 09 Medical VITAMIN Branch ORAL) METHYLCELLU 0 Yes Univer s LOSE (FIBER 6-07 ity of THERAPY 11:23: [place] [facility]) 09 Medical Branch DOCUSATE Yes Take by [...] by ity of vitamin D3, 11:23: mouth [place] (VITAMIN 09 daily. Medical D3) 1,000 Branch unit tablet CRANBERRY Yes [facility] FR[facility] 6-07 mouth ity of EXTRACT 11:23: daily. [place] ([place] 09 Medical ORAL) Branch CALCIUM Yes Take by Univers ORAL 6-07 mouth ity of 11:23: daily. [place] Medical Branch DOCOSAHEXAN Yes 1000mg Take 1,000 [facility] OIC 6-07 mg by ity of ACID/EPA 11:23: mouth [place] (FISH OIL 09 daily. Medical ORAL) Branch BIOTIN ORAL Yes Take by Uni vers 6-07 mouth. ity of 11:23: [place] [address] Medical Branch FOLIC ACID Yes Take by Univ ers ORAL 6-07 mouth ity of 11:23: daily. [place] [address] Medical Branch MULTIVIT Yes Take by Univer s &MINERALS/F 6-07 mouth. ity of ERROUS FUM 11:23: [place] (MULTI 09 Medical VITAMIN Branch ORAL) METHYLCELLU 0 Yes Univer s LOSE (FIBER 6-07 ity of THERAPY 11:23: [place] [facility]) 09 Medical Branch DOCUSATE Yes Take by [...] by ity of vitamin D3, 11:23: mouth [place] (VITAMIN 09 daily. Medical D3) 1,000 Branch unit tablet CRANBERRY Yes Take by [facility] rs FRUIT 6-07 mouth ity of EXTRACT 11:23: daily. [place] (CRANBERRY 09 Medical ORAL) Branch CALCIUM Yes Take by Univers ORAL 607 mouth ity of 11:23: daily. [place] Medical Branch DOCOSAHEXAN Yes 1000mg Take 1,000 [facility] OIC 6-07 mg by ity of ACID/EPA 11:23: mouth [place] (FISH OIL 09 daily. Medical ORAL) Branch BIOTIN ORAL Yes Take by Uni vers 6-07 mouth. ity of 11:23: [place] Medical Branch FOLIC ACID Yes Take by [facility] ers ORAL 6- mouth ity of 11:58: daily. [place] [address] Medical Branch MULTIVIT Yes Take by [facility] s &MINERALS/F 6- mouth. ity of ERROUS FUM 11:58: [place] (MULTI 16 Medical VITAMIN Branch ORAL) METHYLCELLU Yes [facility] s LOSE (FIBER 6-01 ity of THERAPY 11:58: [place] MIS) 16 Medical Branch DOCUSATE Yes Take by [facility] s SODIUM 6-01 mouth. ity of (COLACE 11:58: [place] ORAL) 16 Medical Branch vitamin C Yes 1000mg Take 1,000 [facility] with derrell 6-01 mg by ity of hips 11:58: mouth [place] (VITAMIN C) 16 daily. Medica l 1,000 mg Branch tablet cholecalcif Yes 1000U Take 1,000 [facility] edmar, 6-01 Units by ity of vitamin D3, 11:58: mouth [place] (VITAMIN 16 daily. Medical D3) 1,000 Branch unit tablet CRANBERRY Yes Take by [facility] rs FRUIT 6-01 mouth ity of EXTRACT 11:58: daily. [place] ([place]Y 16 Medical ORAL) Branch CALCIUM Yes Take by Univers ORAL 6-01 mouth ity of 11:58: daily. [place] Medical Branch DOCOSAHEXAN Yes 1000mg Take 1,000 [facility] OIC 6-01 mg by ity of ACID/EPA 11:58: mouth [place] (FISH OIL 16 daily. Medical ORAL) Branch BIOTIN ORAL 2021-0 Yes Take by Uni vers 6- mouth. ity of 11:58: [place] 16 Medical Branch metformin 2021-0 Yes [id number] 500mg Take 1 U nivers ER 500 mg 5-31 tablet by ity o f 24 hr 00:00: mouth [place] tablet 00 daily with Medical breakfast. Branch STOP REGULAR METFORMIN. metformin 2021-0 Yes [id number] 500mg Take 1 U nivers ER 500 mg 5-31 tablet by ity o f 24 hr 00:00: mouth [place] tablet 00 daily with Medical breakfast. Branch STOP REGULAR METFORMIN. metformin 2021-0 Yes [id number] 500mg Take 1 U nivers ER 500 mg 5-31 tablet by ity o f 24 hr 00:00: mouth [place] tablet 00 daily with Medical breakfast. Branch STOP REGULAR METFORMIN. metformin 2021-0 Yes [id number] 500mg Take 1 U nivers ER 500 mg 5-31 tablet by ity o f 24 hr 00:00: mouth [place] tablet 00 daily with Medical breakfast. Branch STOP REGULAR METFORMIN. metformin 2021-0 Yes [id number] 500mg Take 1 U nivers ER 500 mg 5-31 tablet by ity o f 24 hr 00:00: mouth [place] tablet 00 daily with Medical breakfast. Branch STOP REGULAR METFORMIN. metformin 2021-0 Yes [id number] 500mg Take 1 U nivers ER 500 mg 5-31 tablet by ity o f 24 hr 00:00: mouth [place] tablet 00 daily with Medical breakfast. Branch STOP REGULAR METFORMIN. metformin 2021-0 Yes [id number] 500mg Take 1 U nivers ER 500 mg 5-31 tablet by ity o f 24 hr 00:00: mouth [place] tablet 00 daily with Medical breakfast. Branch STOP REGULAR METFORMIN. metformin 2021-0 Yes [id number] 500mg Take 1 U nivers ER 500 mg 5-31 tablet by ity o f 24 hr 00:00: mouth [place] tablet 00 daily with Medical breakfast. Branch STOP REGULAR METFORMIN. metformin 2021-0 Yes [id number] 500mg Take 1 U nivers ER 500 mg 5-31 tablet by ity o f 24 hr 00:00: mouth [place] tablet 00 daily with Medical breakfast. Branch STOP REGULAR METFORMIN. metformin 2021-0 Yes [id number] 500mg Take 1 U nivers ER 500 mg 5-31 tablet by ity o f 24 hr 00:00: mouth [place] tablet 00 daily with Medical breakfast. Branch STOP REGULAR METFORMIN. metformin 2021-0 Yes [id number] 500mg Take 1 U nivers ER 500 mg 5-31 tablet by ity o f 24 hr 00:00: mouth [place] tablet 00 daily with Medical breakfast. Branch STOP REGULAR METFORMIN. metformin 2021-0 Yes [id number] 500mg Take 1 U nivers ER 500 mg 5-31 tablet by ity o f 24 hr 00:00: mouth [place] tablet 00 daily with Medical breakfast. Branch STOP REGULAR METFORMIN. metformin 2021-0 Yes [id number] 500mg Take 1 U nivers ER 500 mg 5-31 tablet by ity o f 24 hr 00:00: mouth [place] tablet 00 daily with Medical breakfast. Branch STOP REGULAR METFORMIN. metformin 2021-0 Yes [id number] 500mg Take 1 U nivers ER 500 mg 5-31 tablet by ity o f 24 hr 00:00: mouth [place] tablet 00 daily with Medical breakfast. Branch STOP REGULAR METFORMIN. metformin 2021-0 Yes [id number] 500mg Take 1 U nivers ER 500 mg 5-31 tablet by ity o f 24 hr 00:00: mouth [place] tablet 00 daily with Medical breakfast. Branch STOP REGULAR METFORMIN. metformin 2021-0 Yes [id number] 500mg Take 1 U nivers ER 500 mg 5-31 tablet by ity o f 24 hr 00:00: mouth [place] tablet 00 daily with Medical breakfast. Branch STOP REGULAR METFORMIN. metformin 2021-0 Yes [id number] 500mg Take 1 U nivers ER 500 mg 5-31 tablet by ity o f 24 hr 00:00: mouth [place] tablet 00 daily with Medical breakfast. Branch STOP REGULAR METFORMIN. metformin 2021-0 Yes [id number] 500mg Take 1 U nivers ER 500 mg 5-31 tablet by ity o f 24 hr 00:00: mouth [place] tablet 00 daily with Medical breakfast. Branch STOP REGULAR METFORMIN. metformin 2021-0 Yes [id number] 500mg Take 1 U nivers ER 500 mg 5-31 tablet by ity o f 24 hr 00:00: mouth [place] tablet 00 daily with Medical breakfast. Branch STOP REGULAR METFORMIN. metformin 2021-0 Yes [id number] 500mg Take 1 U nivers ER 500 mg 5-31 tablet by ity o f 24 hr 00:00: mouth [place] tablet 00 daily with Medical breakfast. Branch STOP REGULAR METFORMIN. metformin 2021-0 Yes [id number] 500mg Take 1 U nivers ER 500 mg 5-31 tablet by ity o f 24 hr 00:00: mouth [place] tablet 00 daily with Medical breakfast. Branch STOP REGULAR METFORMIN. metformin 2021-0 Yes [id number] 500mg Take 1 U nivers ER 500 mg 5-31 tablet by ity o f 24 hr 00:00: mouth [place] tablet 00 daily with Medical breakfast. Branch STOP REGULAR METFORMIN. metformin 2021-0 Yes [id number] 500mg Take 1 U nivers ER 500 mg 5-31 tablet by ity o f 24 hr 00:00: mouth [place] tablet 00 daily with Medical breakfast. Branch STOP REGULAR METFORMIN. metformin 2021-0 Yes [id number] 500mg Take 1 U nivers ER 500 mg 5-31 tablet by ity o f 24 hr 00:00: mouth [place] tablet 00 daily with Medical breakfast. Branch STOP REGULAR METFORMIN. metformin 2021-0 Yes [id number] 500mg Take 1 U nivers ER 500 mg 5-31 tablet by ity o f 24 hr 00:00: mouth [place] tablet 00 daily with Medical breakfast. Branch STOP REGULAR METFORMIN. metformin 2021-0 Yes [id number] 500mg Take 1 U nivers ER 500 mg 5-31 tablet by ity o f 24 hr 00:00: mouth [place] tablet 00 daily with Medical breakfast. Branch STOP REGULAR METFORMIN. metformin 2021-0 Yes [id number] 500mg Take 1 U nivers ER 500 mg 5-31 tablet by ity o f 24 hr 00:00: mouth [place] tablet 00 daily with Medical breakfast. Branch STOP REGULAR METFORMIN. metformin 2021-0 Yes [id number] 500mg Take 1 U nivers ER 500 mg 5-31 tablet by ity o f 24 hr 00:00: mouth [place] tablet 00 daily with Medical breakfast. Branch STOP REGULAR METFORMIN. metformin 2021-0 Yes [id number] 500mg Take 1 U nivers ER 500 mg 5-31 tablet by ity o f 24 hr 00:00: mouth [place] tablet 00 daily with Medical breakfast. Branch STOP REGULAR METFORMIN. metformin 2021-0 Yes [id number] 500mg Take 1 U nivers ER 500 mg 5-31 tablet by ity o f 24 hr 00:00: mouth [place] tablet 00 daily with Medical breakfast. Branch STOP REGULAR METFORMIN. metformin 2021-0 Yes [id number] 500mg Take 1 U nivers ER 500 mg 5-31 tablet by ity o f 24 hr 00:00: mouth [place] tablet 00 daily with Medical breakfast. Branch STOP REGULAR METFORMIN. metformin 2021-0 Yes [id number] 500mg Take 1 U nivers ER 500 mg 5-31 tablet by ity o f 24 hr 00:00: mouth [place] tablet 00 daily with Medical breakfast. Branch STOP REGULAR METFORMIN. metformin 2021-0 Yes [id number] 500mg Take 1 U nivers ER 500 mg 5-31 tablet by ity o f 24 hr 00:00: mouth [place] tablet 00 daily with Medical breakfast. Branch STOP REGULAR METFORMIN. metformin 2021-0 Yes [id number] 500mg Take 1 U nivers ER 500 mg 5-31 tablet by ity o f 24 hr 00:00: mouth [place] tablet 00 daily with Medical breakfast. Branch STOP REGULAR METFORMIN. metformin 2021-0 Yes [id number] 500mg Take 1 [facility] 500 mg 5-31 tablet by [facility] f 24 hr 00:00: mouth [place] tablet 00 daily with Medical breakfast. Branch STOP REGULAR METFORMIN. metformin 2021-0 Yes [id number] 500mg Take 1 [facility] 500 mg 5-31 tablet by [facility] o f 24 hr 00:00: mouth [place] tablet 00 daily with Medical breakfast. Branch STOP REGULAR METFORMIN. metformin 2021-0 Yes [id number] 500mg Take 1 [facility] 500 mg 5-31 tablet by [facility] f 24 hr 00:00: mouth [place] tablet 00 daily with Medical breakfast. Branch STOP REGULAR METFORMIN. metformin 2021-0 Yes [id number] 500mg Take 1 [facility] 500 mg 5-31 tablet by [facility] f 24 hr 00:00: mouth [place] tablet 00 daily with Medical breakfast. Branch STOP REGULAR METFORMIN. metformin 2021-0 Yes [id number] 500mg Take 1 [facility] 500 mg 5-31 tablet by [facility] o f 24 hr 00:00: mouth [place] tablet 00 daily with Medical breakfast. Branch STOP REGULAR METFORMIN. metformin 2021-0 Yes [id number] 500mg Take 1 [facility] 500 mg 5-31 tablet by [facility] o f 24 hr 00:00: mouth [place] tablet 00 daily with Medical breakfast. Branch STOP REGULAR METFORMIN. metformin 2021-0 Yes [id number] 500mg Take 1 [facility] 500 mg 5-31 tablet by [facility] o f 24 hr 00:00: mouth [place] tablet 00 daily with Medical breakfast. Branch STOP REGULAR METFORMIN. metformin 2021-0 Yes [id number] 500mg Take 1 [facility] 500 mg 5-31 tablet by [facility] o f 24 hr 00:00: mouth [place] tablet 00 daily with Medical breakfast. Branch STOP REGULAR METFORMIN. metformin 2021-0 Yes [id number] 500mg Take 1 [facility] 500 mg 5-31 tablet by [facility] o f 24 hr 00:00: mouth [place] tablet 00 daily with Medical breakfast. Branch STOP REGULAR METFORMIN. metformin 2021-0 Yes [id number] 500mg Take 1 [facility] 500 mg 5-31 tablet by [facility] o f 24 hr 00:00: mouth [place] tablet 00 daily with Medical breakfast. Branch STOP REGULAR METFORMIN. metformin 2021-0 Yes [id number] 500mg Take 1 [facility] 500 mg 5-31 tablet by [facility] o f 24 hr 00:00: mouth [place] tablet 00 daily with Medical breakfast. Branch STOP REGULAR METFORMIN. metformin 0 Yes [id number] 500mg Take 1 [facility] 500 mg 5-31 tablet by [facility] o f 24 hr 00:00: mouth [place] tablet 00 daily with Medical breakfast. Branch STOP REGULAR METFORMIN. metformin 2021-0 Yes [id number] 500mg Take 1 [facility] 500 mg 5-31 tablet by [facility] o f 24 hr 00:00: mouth [place] tablet 00 daily with Medical breakfast. Branch STOP REGULAR METFORMIN. metformin 2021-0 Yes [id number] 500mg Take 1 [facility] 500 mg 5-31 tablet by [facility] o f 24 hr 00:00: mouth [place] tablet 00 daily with Medical breakfast. Branch STOP REGULAR METFORMIN. metformin 2021-0 2021- No [id number] 500mg Take 1 [facility] 500 mg 5-31 10-13 tablet by [facility] of 24 hr 00:00: 00:00 mouth [place] tablet 00 :00 daily with Medical breakfast. Branch STOP REGULAR METFORMIN. ibuprofen 2021-0 Yes [id number] 600mg Take 1 [facility] 600 mg 5-19 [id number] tablet by [facility] of tablet 00:00: mouth [place] 00 every 6 Medical (six) Branch hours as needed for Pain (scale 4-6). ibuprofen 2022-0 Yes [id number] 600mg Take 1 [facility] 600 mg 5-19 [id number] tablet by [facility] of tablet 00:00: mouth [place] 00 every 6 Medical (six) Branch hours as needed for Pain (scale 4-6). ibuprofen 2022-0 Yes [id number] 600mg Take 1 [facility] 600 mg 5-19 [id number] tablet by [facility] of tablet 00:00: mouth [place] 00 every 6 Medical (six) Branch hours as needed for Pain (scale 4-6). ibuprofen 2022-0 Yes [id number] 600mg Take 1 [facility] 600 mg 5-19 [id number] tablet by [facility] of tablet 00:00: mouth [place] 00 every 6 Medical (six) Branch hours as needed for Pain (scale 4-6). ibuprofen 2022-0 Yes [id number] 600mg Take 1 [facility] 600 mg 5-19 [id number] tablet by [facility] of tablet 00:00: mouth [place] 00 every 6 Medical (six) Branch hours as needed for Pain (scale 4-6). ibuprofen 2022-0 Yes [id number] 600mg Take 1 [facility] 600 mg 5-19 [id number] tablet by [facility] of tablet 00:00: mouth [place] 00 every 6 Medical (six) Branch hours as needed for Pain (scale 4-6). ibuprofen 2022-0 Yes [id number] 600mg Take 1 [facility] 600 mg 5-19 [id number] tablet by [facility] of tablet 00:00: mouth [place] 00 every 6 Medical (six) Branch hours as needed for Pain (scale 4-6). ibuprofen 2022-0 Yes [id number] 600mg Take 1 [facility] 600 mg 5-19 [id number] tablet by [facility] of tablet 00:00: mouth [place] 00 every 6 Medical (six) Branch hours as needed for Pain (scale 4-6). ibuprofen 2022-0 Yes [id number] 600mg Take 1 [facility] 600 mg 5-19 [id number] tablet by [facility] of tablet 00:00: mouth [place] 00 every 6 Medical (six) Branch hours as needed for Pain (scale 4-6). ibuprofen 2022-0 Yes [id number] 600mg Take 1 [facility] 600 mg 5-19 [id number] tablet by [facility] of tablet 00:00: mouth [place] 00 every 6 Medical (six) Branch hours as needed for Pain (scale 4-6). ibuprofen 2022-0 Yes [id number] 600mg Take 1 [facility] 600 mg 5-19 [id number] tablet by [facility] of tablet 00:00: mouth [place] 00 every 6 Medical (six) Branch hours as needed for Pain (scale 4-6). ibuprofen 2022-0 Yes [id number] 600mg Take 1 [facility] 600 mg 5-19 [id number] tablet by [facility] of tablet 00:00: mouth [place] 00 every 6 Medical (six) Branch hours as needed for Pain (scale 4-6). ibuprofen 2022-0 Yes [id number] 600mg Take 1 [facility] 600 mg 5-19 [id number] tablet by [facility] of tablet 00:00: mouth [place] 00 every 6 Medical (six) Branch hours as needed for Pain (scale 4-6). ibuprofen 2022-0 Yes [id number] 600mg Take 1 [facility] 600 mg 5-19 [id number] tablet by [facility] of tablet 00:00: mouth [place] 00 every 6 Medical (six) Branch hours as needed for Pain (scale 4-6). ibuprofen 2022-0 Yes [id number] 600mg Take 1 [facility] 600 mg 5-19 [id number] tablet by [facility] of tablet 00:00: mouth [place] 00 every 6 Medical (six) Branch hours as needed for Pain (scale 4-6). ibuprofen 2022-0 Yes [id number] 600mg Take 1 [facility] 600 mg 5-19 [id number] tablet by [facility] of tablet 00:00: mouth [place] 00 every 6 Medical (six) Branch hours as needed for Pain (scale 4-6). ibuprofen 2022-0 Yes [id number] 600mg Take 1 [facility] 600 mg 5-19 [id number] tablet by [facility] of tablet 00:00: mouth [place] 00 every 6 Medical (six) Branch hours as needed for Pain (scale 4-6). ibuprofen 2022-0 Yes [id number] 600mg Take 1 [facility] 600 mg 5-19 [id number] tablet by [facility] of tablet 00:00: mouth [place] 00 every 6 Medical (six) Branch hours as needed for Pain (scale 4-6). ibuprofen 2022-0 Yes [id number] 600mg Take 1 [facility] 600 mg 5-19 [id number] tablet by [facility] of tablet 00:00: mouth [place] 00 every 6 Medical (six) Branch hours as needed for Pain (scale 4-6). ibuprofen 2022-0 Yes [id number] 600mg Take 1 [facility] 600 mg 5-19 [id number] tablet by [facility] of tablet 00:00: mouth [place] 00 every 6 Medical (six) Branch hours as needed for Pain (scale 4-6). ibuprofen 2022-0 Yes [id number] 600mg Take 1 [facility] 600 mg 5-19 [id number] tablet by [facility] of tablet 00:00: mouth [place] 00 every 6 Medical (six) Branch hours as needed for Pain (scale 4-6). ibuprofen 2022-0 Yes [id number] 600mg Take 1 [facility] 600 mg 5-19 [id number] tablet by [facility] of tablet 00:00: mouth [place] 00 every 6 Medical (six) Branch hours as needed for Pain (scale 4-6). ibuprofen 2022-0 Yes [id number] 600mg Take 1 [facility] 600 mg 5-19 [id number] tablet by [facility] of tablet 00:00: mouth [place] 00 every 6 Medical (six) Branch hours as needed for Pain (scale 4-6). ibuprofen 2022-0 Yes [id number] 600mg Take 1 [facility] 600 mg 5-19 [id number] tablet by [facility] of tablet 00:00: mouth [place] 00 every 6 Medical (six) Branch hours as needed for Pain (scale 4-6). ibuprofen 2022-0 Yes [id number] 600mg Take 1 [facility] 600 mg 5-19 [id number] tablet by [facility] of tablet 00:00: mouth [place] 00 every 6 Medical (six) Branch hours as needed for Pain (scale 4-6). ibuprofen 2022-0 Yes [id number] 600mg Take 1 [facility] 600 mg 5-19 [id number] tablet by [facility] of tablet 00:00: mouth [place] 00 every 6 Medical (six) Branch hours as needed for Pain (scale 4-6). ibuprofen 2022-0 Yes [id number] 600mg Take 1 [facility] 600 mg 5-19 [id number] tablet by [facility] of tablet 00:00: mouth [place] 00 every 6 Medical (six) Branch hours as needed for Pain (scale 4-6). ibuprofen 2022-0 Yes [id number] 600mg Take 1 [facility] 600 mg 5-19 [id number] tablet by [facility] of tablet 00:00: mouth [place] 00 every 6 Medical (six) Branch hours as needed for Pain (scale 4-6). ibuprofen 2022-0 Yes [id number] 600mg Take 1 [facility] 600 mg 5-19 [id number] tablet by [facility] of tablet 00:00: mouth [place] 00 every 6 Medical (six) Branch hours as needed for Pain (scale 4-6). ibuprofen 2022-0 Yes [id number] 600mg Take 1 [facility] 600 mg 5-19 [id number] tablet by [facility] of tablet 00:00: mouth [place] 00 every 6 Medical (six) Branch hours as needed for Pain (scale 4-6). ibuprofen 2022-0 Yes [id number] 600mg Take 1 [facility] 600 mg 5-19 [id number] tablet by [facility] of tablet 00:00: mouth [place] 00 every 6 Medical (six) Branch hours as needed for Pain (scale 4-6). ibuprofen 2021-0 Yes [id number] 600mg Take 1 [facility] 600 mg 5-19 [id number] tablet by [facility] of tablet 00:00: mouth [place] 00 every 6 Medical (six) Branch hours as needed for Pain (scale 4-6). ibuprofen 2022-0 Yes [id number] 600mg Take 1 [facility] 600 mg 5-19 [id number] tablet by [facility] of tablet 00:00: mouth [place] 00 every 6 Medical (six) Branch hours as needed for Pain (scale 4-6). ibuprofen 2021-0 Yes [id number] 600mg Take 1 [facility] 600 mg 5-19 [id number] tablet by [facility] of tablet 00:00: mouth [place] 00 every 6 Medical (six) Branch hours as needed for Pain (scale 4-6). ibuprofen 2-0 Yes [id number] 600mg Take 1 [facility] 600 mg 5-19 [id number] tablet by [facility] of tablet 00:00: mouth [place] 00 every 6 Medical (six) Branch hours as needed for Pain (scale 4-6). ibuprofen 2022-0 Yes [id number] 600mg Take 1 [facility] 600 mg 5-19 [id number] tablet by [facility] of tablet 00:00: mouth [place] 00 every 6 Medical (six) Branch hours as needed for Pain (scale 4-6). ibuprofen 2022-0 2022- No [id number] 600mg Take 1 [facility] 600 mg 5-19 - [id number] tablet by [facility] o f tablet 00:00: 00:00 mouth [place] 00 :00 every 6 Medical (six) Branch hours as needed for Pain (scale 4-6). ibuprofen 2022-0 2022- No [id number] 600mg Take 1 [facility] 600 mg 5-19 - [id number] tablet by [facility] o f tablet 00:00: 00:00 mouth [place] 00 :00 every 6 Medical (six) Branch hours as needed for Pain (scale 4-6). ibuprofen 2021-0 2022- No [id number] 600mg Take 1 [facility] 600 mg 02-11 [id number] tablet by [facility] o f tablet 00:00: 00:00 mouth [place] 00 :00 every 6 Medical (six) Branch hours as needed for Pain (scale 4-6). topiramate 2021-0 Yes [id number] 50mg Take 2 [facility] 25 mg 5-16 tablets by [facility] of tablet 00:00: [address] (two) Medical times Branch daily. topiramate 2021-0 Yes [id number] 50mg Take 2 [facility] 25 mg 5-16 tablets by [facility] of tablet 00:00: [address] (two) Medical times Branch daily. topiramate 2021-0 Yes [id number] 50mg Take 2 [facility] 25 mg 5-16 tablets by [facility] of tablet 00:00: [address] (two) Medical times Branch daily. topiramate 2021-0 Yes [id number] 50mg Take 2 [facility] 25 mg 5-16 tablets by [facility] of tablet 00:00: [address] (two) Medical times Branch daily. topiramate 2021-0 Yes [id number] 50mg Take 2 [facility] 25 mg 5-16 tablets by it[facility] of tablet 00:00: [address] (two) Medical times Branch daily. topiramate 2021-0 Yes [id number] 50mg Take 2 [facility] 25 mg 5-16 tablets by it[facility] of tablet 00:00: [address] (two) Medical times Branch daily. topiramate 2021-0 Yes [id number] 50mg Take 2 [facility] 25 mg 5-16 tablets by [facility] of tablet 00:00: [address] (two) Medical times Branch daily. topiramate 2021-0 Yes [id number] 50mg Take 2 [facility] 25 mg 5-16 tablets by [facility] of tablet 00:00: [address] (two) Medical times Branch daily. topiramate 2021-0 Yes [id number] 50mg Take 2 [facility] 25 mg 5-16 tablets by [facility] of tablet 00:00: [address] (two) Medical times Branch daily. SUMAtriptan 2021-0 Yes [id number] 50mg Take 1 [facility] 50 mg 5-16 tablet by [facility] of tablet 00:00: mouth as [place] 00 needed for Medical Migraine. Branch topiramate 2-0 Yes [id number] 50mg Take 2 [facility] 25 mg 5-16 tablets by ity of tablet 00:00: mouth 2 (two) Medical times Branch daily. SUMAtriptan 2022-0 Yes [id number] 50mg Take 1 [facility] 50 mg 5-16 tablet by [facility] of tablet 00:00: mouth as [place] 00 needed for Medical Migraine. Branch topiramate 2-0 Yes [id number] 50mg Take 2 [facility] 25 mg 5-16 tablets by [facility]y of tablet 00:00: mouth 2 (two) Medical times Branch daily. SUMAtriptan 2022-0 Yes [id number] 50mg Take 1 [facility] 50 mg 5-16 tablet by [facility] of tablet 00:00: mouth as [place] 00 needed for Medical Migraine. Branch topiramate 2-0 Yes [id number] 50mg Take 2 [facility] 25 mg 5-16 tablets by ity of tablet 00:00: mouth 2 (two) Medical times Branch daily. SUMAtriptan 2-0 Yes [id number] 50mg Take 1 [facility] 50 mg 5-16 tablet by [facility] of tablet 00:00: mouth as [place] 00 needed for Medical Migraine. Branch topiramate 2-0 Yes [id number] 50mg Take 2 [facility] 25 mg 5-16 tablets by ity of tablet 00:00: mouth 2 (two) Medical times Branch daily. SUMAtriptan 2-0 Yes [id number] 50mg Take 1 [facility] 50 mg 5-16 tablet by [facility] of tablet 00:00: mouth as [place] 00 needed for Medical Migraine. Branch topiramate 2-0 Yes [id number] 50mg Take 2 [facility] 25 mg 5-16 tablets by ity of tablet 00:00: mouth 2 (two) Medical times Branch daily. SUMAtriptan 2022-0 Yes [id number] 50mg Take 1 [facility] 50 mg 5-16 tablet by [facility] of tablet 00:00: mouth as [place] 00 needed for Medical Migraine. Branch topiramate 2022-0 Yes [id number] 50mg Take 2 [facility] 25 mg 5-16 tablets by ity of tablet 00:00: mouth 2 [place] 00 (two) Medical times Branch daily. topiramate 2021-0 Yes [id number] 50mg Take 2 [facility] 25 mg 5-16 tablets by ity of tablet 00:00: mouth 2 [place] 00 (two) Medical times Branch daily. topiramate 2-0 Yes [id number] 50mg Take 2 [facility] 25 mg 5-16 tablets by [facility]y of tablet 00:00: mouth 2 [place] 00 (two) Medical times Branch daily. topiramate 2021-0 Yes [id number] 50mg Take 2 [facility] 25 mg 5-16 tablets by ity of tablet 00:00: mouth 2 [place] 00 (two) Medical times Branch daily. topiramate 2021-0 Yes [id number] 50mg Take 2 [facility] 25 mg 5-16 tablets by [facility]y of tablet 00:00: mouth 2 [place] (two) Medical times Branch daily. topiramate 2021-0 Yes [id number] 50mg Take 2 [facility] 25 mg 5-16 tablets by ity of tablet 00:00: mouth 2 [place] (two) Medical times Branch daily. topiramate 2021-0 2022- No [id number] 50mg Take 2 [facility] 25 mg 5-16 09-01 tablets by [facility]y of tablet 00:00: 00:00 mouth 2 [place] 00 :00 (two) Medical times Branch daily. SUMAtriptan 2021-0 2- No [id number] 50mg Take 1 [facility] 50 mg 5-16 06-17 tablet by ity of tablet 00:00: 00:00 mouth as [place] 00 :00 needed for Medical Migraine. Branch ALCOHOL 2021- Yes 1{dose} Apply 1 [...] PadM 5-08 Dose to [facility]y of 00:00: [facility] [place] 00 before Medical meals. Branch [...] PadM 5-08 Dose to ity of 00:00: [facility] [place] 00 before Medical meals. Branch ALCOHOL 2021-0 Yes 1{dose} Apply 1 [facility] ers PADS PadM 5-08 Dose to ity of 00:00: [facility]) [place] 00 before Medical meals. Branch ALCOHOL 2021-0 Yes 1{dose} Apply 1 [facility] ers PADS PadM 5-08 Dose to ity of 00:00: [facility]) [place] 00 before Medical meals. Branch ALCOHOL 2021-0 Yes 1{dose} Apply 1 [facility] ers PADS PadM 5-08 Dose to ity of 00:00: [facility]) [place] 00 before Medical meals. Branch ALCOHOL 2021-0 Yes 1{dose} Apply 1 [facility] ers PADS PadM 5-08 Dose to ity of 00:00: [facility]() [place] 00 before Medical meals. Branch ALCOHOL 2021-0 Yes 1{dose} Apply 1 [facility] ers PADS PadM 5-08 Dose to ity of 00:00: [facility]) [place] 00 before Medical meals. Branch ALCOHOL 2021-0 Yes 1{dose} Apply 1 [facility] ers PADS PadM 5-08 Dose to ity of 00:00: [facility]) [place] 00 before Medical meals. Branch ALCOHOL 2021-0 Yes 1{dose} Apply 1 [facility] ers PADS PadM 5-08 Dose to ity of 00:00: [facility] [place] 00 before Medical meals. Branch ALCOHOL 2021-0 Yes 1{dose} Apply 1 [facility] ers PADS PadM 5-08 Dose to ity of 00:00: [facility] [place] 00 before Medical meals. Branch ALCOHOL 2021-0 Yes 1{dose} Apply 1 [facility] ers PADS PadM 5-08 Dose to ity of 00:00: [facility]) [place] 00 before Medical meals. Branch ALCOHOL 2021-0 Yes 1{dose} Apply 1 [facility] ers PADS PadM 5-08 Dose to ity of 00:00: [facility]) [place] 00 before Medical meals. Branch ALCOHOL 2021-0 Yes 1{dose} Apply 1 [facility] ers PADS PadM 5-08 Dose to ity of 00:00: [facility] [place] 00 before Medical meals. Branch ALCOHOL 2021-0 Yes 1{dose} Apply 1 [facility] ers PADS PadM 5-08 Dose to ity of 00:00: [facility] [place] 00 before Medical meals. Branch ALCOHOL 2022-0 Yes 1{dose} Apply 1 [facility] ers PADS PadM 5-08 Dose to ity of 00:00: [facility]) [place] 00 before Medical meals. Branch ALCOHOL Yes 1{dose} Apply 1 [facility] ers PADS PadM 5-08 Dose to ity of 00:00: [facility]) [place] 00 before Medical meals. Branch ALCOHOL Yes 1{dose} Apply 1 [facility] ers PADS PadM 5-08 Dose to ity of 00:00: [facility]) [place] 00 before Medical meals. Branch ALCOHOL Yes 1{dose} Apply 1 [facility] ers PADS PadM 5-08 Dose to ity of 00:00: [facility]) [place] 00 before Medical meals. Branch ALCOHOL Yes 1{dose} Apply 1 [facility] ers PADS PadM 5-08 Dose to ity of 00:00: [facility]) [place] 00 before Medical meals. Branch ALCOHOL Yes 1{dose} Apply 1 [facility] ers PADS PadM 5-08 Dose to ity of 00:00: [facility]) [place] 00 before Medical meals. Branch ALCOHOL Yes 1{dose} Apply 1 [facility] ers PADS PadM 5-08 Dose to ity of 00:00: [facility]) [place] 00 before Medical meals. Branch ALCOHOL 2021- No 1{dose} Apply 1 [facility] vers PADS PadM 5-08 -22 Dose to ity of 00:00: 00:00 [facility] [place] 00 :00 before Medical meals. Branch ALCOHOL 2021- No 1{dose} Apply 1 [facility] vers PADS PadM 5-08 -22 Dose to ity of 00:00: 00:00 [facility] [place] 00 :00 before Medical meals. Branch ALCOHOL 2021- No 1{dose} Apply 1 [facility] vers PADS PadM 5-08 -22 Dose to ity of 00:00: 00:00 [facility] [place] 00 :00 before Medical meals. Branch pregabalin Yes [id number] 150mg Take 1 [facility] 150 mg 4-29 capsule by ity of capsule 00:00: mouth 3 [place] 00 (three) Medical times Branch daily. busPIRone Yes [id number] 20mg Take 2 [facility] [place] 10 mg 4-29 tablets by ity of tablet 00:00: mouth (two) Medical times Branch daily. citalopram 2021-0 Yes [id number] 40mg Take 1 [facility] 40 mg 4-29 tablet by [facility] of tablet 00:00: mouth daily. Medical Branch pregabalin 2021-0 Yes [id number] 150mg Take 1 [facility] 150 mg 4-29 capsule by ity of capsule 00:00: mouth 3 (three) Medical times Branch daily. busPIRone 2021-0 Yes [id number] 20mg Take 2 [facility] [place] 10 mg 4-29 tablets by [facility] of tablet 00:00: mouth (two) Medical times Branch daily. citalopram 2021-0 Yes [id number] 40mg Take 1 [facility] 40 mg 4-29 tablet by [facility] of tablet 00:00: mouth daily. Medical Branch pregabalin 2021-0 Yes [id number] 150mg Take 1 [facility] 150 mg 4-29 capsule by ity of capsule 00:00: mouth (three) Medical times Branch daily. busPIRone 2021-0 Yes [id number] 20mg Take 2 [facility] [place] 10 mg 4-29 tablets by [facility]y of tablet 00:00: mouth (two) Medical times Branch daily. citalopram 2021-0 Yes [id number] 40mg Take 1 [facility] 40 mg 4-29 tablet by [facility] of tablet 00:00: mouth daily. Medical Branch pregabalin 2021-0 Yes [id number] 150mg Take 1 [facility] 150 mg 4-29 capsule by ity of capsule 00:00: mouth (three) Medical times Branch daily. busPIRone 2021-0 Yes [id number] 20mg Take 2 [facility] [place] 10 mg 4-29 tablets by [facility] of tablet 00:00: mouth (two) Medical times Branch daily. citalopram 2021-0 Yes [id number] 40mg Take 1 [facility] 40 mg 4-29 tablet by [facility] of tablet 00:00: mouth 00 daily. Medical Branch pregabalin 2021-0 Yes [id number] 150mg Take 1 [facility] 150 mg 4-29 capsule by ity of capsule 00:00: mouth 3 (three) Medical times Branch daily. busPIRone 2021-0 Yes [id number] 20mg Take 2 [facility] [place] 10 mg 4-29 tablets by ity of tablet 00:00: mouth (two) Medical times Branch daily. citalopram 2021-0 Yes [id number] 40mg Take 1 [facility] 40 mg 4-29 tablet by ity of tablet 00:00: mouth daily. Medical Branch pregabalin 2021-0 Yes [id number] 150mg Take 1 [facility] 150 mg 4-29 capsule by ity of capsule 00:00: mouth 3 (three) Medical times Branch daily. busPIRone 2021-0 Yes [id number] 20mg Take 2 [facility] [place] 10 mg 4-29 tablets by ity of tablet 00:00: mouth (two) Medical times Branch daily. citalopram 2021-0 Yes [id number] 40mg Take 1 [facility] 40 mg 4-29 tablet by [facility] of tablet 00:00: mouth daily. Medical Branch pregabalin 2021-0 Yes [id number] 150mg Take 1 [facility] 150 mg 4-29 capsule by ity of capsule 00:00: mouth (three) Medical times Branch daily. busPIRone 2021-0 Yes [id number] 20mg Take 2 [facility] [place] 10 mg 4-29 tablets by ity of tablet 00:00: mouth (two) Medical times Branch daily. citalopram 2021-0 Yes [id number] 40mg Take 1 [facility] 40 mg 4-29 tablet by ity of tablet 00:00: mouth daily. Medical Branch pregabalin 2021-0 Yes [id number] 150mg Take 1 [facility] 150 mg 4-29 capsule by ity of capsule 00:00: mouth (three) Medical times Branch daily. busPIRone 2-0 Yes [id number] 20mg Take 2 [facility] [place] 10 mg 4-29 tablets by ity of tablet 00:00: mouth (two) Medical times Branch daily. citalopram 2-0 Yes [id number] 40mg Take 1 [facility] 40 mg 4-29 tablet by [facility]y of tablet 00:00: mouth daily. Medical Branch pregabalin 2022-0 Yes [id number] 150mg Take 1 [facility] 150 mg 4-29 capsule by ity of capsule 00:00: mouth 3 (three) Medical times Branch daily. busPIRone 2021-0 Yes [id number] 20mg Take 2 [facility] [place] 10 mg 4-29 tablets by [facility] of tablet 00:00: mouth (two) Medical times Branch daily. citalopram 2021-0 Yes [id number] 40mg Take 1 [facility] 40 mg 4-29 tablet by [facility] of tablet 00:00: mouth daily. Medical Branch pregabalin 2021-0 Yes [id number] 150mg Take 1 [facility] 150 mg 4-29 capsule by ity of capsule 00:00: mouth (three) Medical times Branch daily. busPIRone 2021-0 Yes [id number] 20mg Take 2 [facility] [place] 10 mg 4-29 tablets by [facility]y of tablet 00:00: mouth (two) Medical times Branch daily. citalopram 2021-0 Yes [id number] 40mg Take 1 [facility] 40 mg 4-29 tablet by [facility] of tablet 00:00: mouth daily. Medical Branch pregabalin 2021-0 Yes [id number] 150mg Take 1 [facility] 150 mg 4-29 capsule by ity of capsule 00:00: mouth (three) Medical times Branch daily. busPIRone 2021-0 Yes [id number] 20mg Take 2 [facility] [place] 10 mg 4-29 tablets by [facility]y of tablet 00:00: mouth (two) Medical times Branch daily. citalopram 2021-0 Yes [id number] 40mg Take 1 [facility] 40 mg 4-29 tablet by [facility]y of tablet 00:00: mouth daily. Medical Branch pregabalin 2021-0 Yes [id number] 150mg Take 1 [facility] 150 mg 4-29 capsule by ity of capsule 00:00: mouth (three) Medical times Branch daily. busPIRone 2021-0 Yes [id number] 20mg Take 2 [facility] [place] 10 mg 4-29 tablets by [facility]y of tablet 00:00: mouth (two) Medical times Branch daily. citalopram 2021-0 Yes [id number] 40mg Take 1 [facility] 40 mg 4-29 tablet by [facility] of tablet 00:00: mouth 00 daily. Medical Branch pregabalin 2021-0 Yes [id number] 150mg Take 1 [facility] 150 mg 4-29 capsule by ity of capsule 00:00: mouth 3 (three) Medical times Branch daily. busPIRone 2021-0 Yes [id number] 20mg Take 2 [facility] [place] 10 mg 4-29 tablets by [facility] of tablet 00:00: mouth (two) Medical times Branch daily. citalopram 2021-0 Yes [id number] 40mg Take 1 [facility] 40 mg 4-29 tablet by [facility] of tablet 00:00: mouth 00 daily. Medical Branch pregabalin 2021-0 Yes [id number] 150mg Take 1 [facility] 150 mg 4-29 capsule by ity of capsule 00:00: mouth (three) Medical times Branch daily. busPIRone 2021-0 Yes [id number] 20mg Take 2 [facility] [place] 10 mg 4-29 tablets by [facility] of tablet 00:00: mouth (two) Medical times Branch daily. citalopram 2021-0 Yes [id number] 40mg Take 1 [facility] 40 mg 4-29 tablet by [facility] of tablet 00:00: mouth daily. Medical Branch pregabalin 2021-0 Yes [id number] 150mg Take 1 [facility] 150 mg 4-29 capsule by ity of capsule 00:00: mouth (three) Medical times Branch daily. busPIRone 2021-0 Yes [id number] 20mg Take 2 [facility] [place] 10 mg 4-29 tablets by [facility] of tablet 00:00: mouth (two) Medical times Branch daily. citalopram 2021-0 Yes [id number] 40mg Take 1 [facility] 40 mg 4-29 tablet by [facility] of tablet 00:00: mouth 00 daily. Medical Branch pregabalin 2021-0 Yes [id number] 150mg Take 1 [facility] 150 mg 4-29 capsule by ity of capsule 00:00: mouth 3 (three) Medical times Branch daily. busPIRone 2021-0 Yes [id number] 20mg Take 2 [facility] [place] 10 mg 4-29 tablets by [facility] of tablet 00:00: mouth (two) Medical times Branch daily. citalopram 2-0 Yes [id number] 40mg Take 1 [facility] 40 mg 4-29 tablet by [facility] of tablet 00:00: mouth 00 daily. Medical Branch pregabalin 2021-0 Yes [id number] 150mg Take 1 [facility] 150 mg 4-29 capsule by [facility]y of capsule 00:00: mouth 3 (three) Medical times Branch daily. busPIRone 2021-0 Yes [id number] 20mg Take 2 [facility] 10 mg 4-29 tablets by [facility] tablet 00:00: mouth (two) [facility] times [facility] daily. citalopram 2021-0 Yes [id number] 40mg Take 1 [facility] 40 mg 4-29 tablet by [facility] tablet 00:00: mouth daily. [facility] pregabalin 2021-0 Yes [id number] 150mg Take 1 [facility] 150 mg 4-29 capsule by [facility] capsule 00:00: mouth (three) [facility] times [facility] daily. busPIRone 2021-0 Yes [id number] 20mg Take 2 [facility] 10 mg 4-29 tablets by [facility] tablet 00:00: mouth (two) [facility] times [facility] daily. citalopram 2021-0 Yes [id number] 40mg Take 1 [facility] 40 mg 4-29 tablet by [facility] tablet 00:00: mouth daily. [facility] pregabalin 2021-0 Yes [id number] 150mg Take 1 [facility] 150 mg 4-29 capsule by [facility] capsule 00:00: mouth (three) [facility] times [facility] daily. busPIRone 2-0 Yes [id number] 20mg Take 2 [facility] 10 mg 4-29 tablets by [facility] tablet 00:00: mouth (two) [facility] times [facility] daily. citalopram 2-0 Yes [id number] 40mg Take 1 [facility] 40 mg 4-29 tablet by [facility] tablet 00:00: mouth 00 daily. [facility] pregabalin 2021-0 Yes [id number] 150mg Take 1 [facility] 150 mg 4-29 capsule by [facility] capsule 00:00: mouth (three) [facility] times [facility] daily. busPIRone 2021-0 Yes [id number] 20mg Take 2 [facility] 10 mg 4-29 tablets by [facility] tablet 00:00: mouth (two) [facility] times [facility] daily. citalopram 2021-0 Yes [id number] 40mg Take 1 [facility] 40 mg 4-29 tablet by [facility] tablet 00:00: mouth daily. [facility] pregabalin 2021-0 Yes [id number] 150mg Take 1 [facility] 150 mg 4-29 capsule by [facility] capsule 00:00: mouth 3 (three) [facility] times [facility] daily. busPIRone 2021-0 Yes [id number] 20mg Take 2 [facility] 10 mg 4-29 tablets by [facility] tablet 00:00: mouth (two) [facility] times [facility] daily. citalopram 2021-0 Yes [id number] 40mg Take 1 [facility] 40 mg 4-29 tablet by [facility] tablet 00:00: mouth daily. [facility] pregabalin 2021-0 Yes [id number] 150mg Take 1 [facility] 150 mg 4-29 capsule by [facility] capsule 00:00: mouth (three) [facility] times [facility] daily. busPIRone 2021-0 Yes [id number] 20mg Take 2 [facility] 10 mg 4-29 tablets by [facility] tablet 00:00: mouth (two) [facility] times [facility] daily. citalopram 2021-0 Yes [id number] 40mg Take 1 [facility] 40 mg 4-29 tablet by [facility] tablet 00:00: mouth daily. [facility] pregabalin 2021-0 Yes [id number] 150mg Take 1 [facility] 150 mg 4-29 capsule by [facility] capsule 00:00: mouth (three) [facility] times [facility] daily. busPIRone 2021-0 Yes [id number] 20mg Take 2 [facility] 10 mg 4-29 tablets by [facility] tablet 00:00: mouth (two) [facility] times [facility] daily. citalopram 2-0 Yes [id number] 40mg Take 1 [facility] 40 mg 4-29 tablet by [facility] tablet 00:00: mouth daily. [facility] pregabalin 2021-0 Yes [id number] 150mg Take 1 [facility] 150 mg 4-29 capsule by [facility] capsule 00:00: mouth 3 (three) [facility] times [facility] daily. busPIRone 2021-0 Yes [id number] 20mg Take 2 [facility] 10 mg 4-29 tablets by [facility] tablet 00:00: mouth (two) [facility] times [facility] daily. citalopram 2021-0 Yes [id number] 40mg Take 1 [facility] 40 mg 4-29 tablet by [facility] tablet 00:00: mouth 00 daily. [facility] pregabalin 2021-0 Yes [id number] 150mg Take 1 [facility] 150 mg 4-29 capsule by [facility] capsule 00:00: mouth (three) [facility] times [facility] daily. busPIRone 2021-0 Yes [id number] 20mg Take 2 [facility] 10 mg 4-29 tablets by [facility] tablet 00:00: mouth (two) [facility] times [facility] daily. citalopram 2021-0 Yes [id number] 40mg Take 1 [facility] 40 mg 4-29 tablet by [facility] tablet 00:00: mouth daily. [facility] pregabalin 2021-0 Yes [id number] 150mg Take 1 [facility] 150 mg 4-29 capsule by [facility] capsule 00:00: mouth (three) [facility] times [facility] daily. busPIRone 2021-0 Yes [id number] 20mg Take 2 [facility] 10 mg 4-29 tablets by [facility] tablet 00:00: mouth (two) [facility] times [facility] daily. citalopram 2021-0 Yes [id number] 40mg Take 1 [facility] 40 mg 4-29 tablet by [facility] tablet 00:00: mouth 00 daily. [facility] pregabalin 2021-0 Yes [id number] 150mg Take 1 [facility] 150 mg 4-29 capsule by [facility] capsule 00:00: mouth 3 (three) [facility] times [facility] daily. busPIRone 2021-0 Yes [id number] 20mg Take 2 [facility] 10 mg 4-29 tablets by [facility] tablet 00:00: mouth (two) [facility] times [facility] daily. citalopram 2021-0 Yes [id number] 40mg Take 1 [facility] 40 mg 4-29 tablet by [facility] tablet 00:00: mouth 00 daily. [facility] pregabalin 2021-0 Yes [id number] 150mg Take 1 [facility] 150 mg 4-29 capsule by [facility] capsule 00:00: mouth 3 (three) [facility] times [facility] daily. busPIRone 2021-0 Yes [id number] 20mg Take 2 [facility] 10 mg 4-29 tablets by [facility] tablet 00:00: mouth (two) [facility] times [facility] daily. citalopram 2021-0 Yes [id number] 40mg Take 1 [facility] 40 mg 4-29 tablet by [facility] tablet 00:00: mouth 00 daily. [facility] pregabalin 2021-0 Yes [id number] 150mg Take 1 [facility] 150 mg 4-29 capsule by [facility] capsule 00:00: mouth (three) [facility] times [facility] daily. busPIRone 2021-0 Yes [id number] 20mg Take 2 [facility] 10 mg 4-29 tablets by [facility] tablet 00:00: mouth (two) [facility] times [facility] daily. citalopram 2021-0 Yes [id number] 40mg Take 1 [facility] 40 mg 4-29 tablet by [facility] tablet 00:00: mouth daily. [facility] pregabalin 2021-0 Yes [id number] 150mg Take 1 [facility] 150 mg 4-29 capsule by [facility] capsule 00:00: mouth (three) [facility] times [facility] daily. busPIRone 2021-0 Yes [id number] 20mg Take 2 [facility] 10 mg 4-29 tablets by [facility] tablet 00:00: mouth (two) [facility] times [facility] daily. citalopram 2021-0 Yes [id number] 40mg Take 1 [facility] 40 mg 4-29 tablet by [facility] tablet 00:00: mouth 00 daily. [facility] pregabalin 2021-0 Yes [id number] 150mg Take 1 [facility] 150 mg 4-29 capsule by [facility] capsule 00:00: mouth 3 (three) [facility] times [facility] daily. busPIRone 2021-0 Yes [id number] 20mg Take 2 [facility] 10 mg 4-29 tablets by [facility] tablet 00:00: mouth 2 (two) [facility] times [facility] daily. citalopram 2021-0 Yes [id number] 40mg Take 1 [facility] 40 mg 4-29 tablet by [facility] tablet 00:00: mouth 00 daily. [facility] pregabalin 2021-0 Yes [id number] 150mg Take 1 [facility] 150 mg 4-29 capsule by [facility] capsule 00:00: mouth 3 (three) [facility] times [facility] daily. busPIRone 2021-0 Yes [id number] 20mg Take 2 [facility] 10 mg 4-29 tablets by [facility] tablet 00:00: mouth (two) [facility] times [facility] daily. citalopram 2021-0 Yes [id number] 40mg Take 1 [facility] 40 mg 4-29 tablet by [facility] tablet 00:00: mouth 00 daily. [facility] pregabalin 2021-0 Yes [id number] 150mg Take 1 [facility] 150 mg 4-29 capsule by [facility] capsule 00:00: mouth (three) [facility] times [facility] daily. busPIRone 2021-0 Yes [id number] 20mg Take 2 [facility] 10 mg 4-29 tablets by [facility] tablet 00:00: mouth (two) [facility] times [facility] daily. citalopram 2021-0 Yes [id number] 40mg Take 1 [facility] 40 mg 4-29 tablet by [facility] tablet 00:00: mouth daily. [facility] pregabalin 2021-0 Yes [id number] 150mg Take 1 [facility] 150 mg 4-29 capsule by [facility] capsule 00:00: mouth (three) [facility] times [facility] daily. busPIRone 2021-0 Yes [id number] 20mg Take 2 [facility] 10 mg 4-29 tablets by [facility] tablet 00:00: mouth (two) [facility] times [facility] daily. citalopram 2021-0 Yes [id number] 40mg Take 1 [facility] 40 mg 4-29 tablet by [facility] tablet 00:00: mouth 00 daily. [facility] pregabalin 2021-0 Yes [id number] 150mg Take 1 [facility] 150 mg 4-29 capsule by [facility] capsule 00:00: mouth (three) [facility] times [facility] daily. busPIRone 2021-0 Yes [id number] 20mg Take 2 [facility] 10 mg 4-29 tablets by [facility] tablet 00:00: mouth 2 (two) [facility] times [facility] daily. citalopram 0 Yes [id number] 40mg Take 1 [facility] 40 mg 4-29 tablet by [facility] tablet 00:00: mouth [place] 00 daily. [facility] pregabalin 0 Yes [id number] 150mg Take 1 [facility] 150 mg 4-29 capsule by [facility] capsule 00:00: mouth 3 [place] 00 (three) Medical times [facility] daily. busPIRone 0 Yes [id number] 20mg Take 2 [facility] 10 mg 4-29 tablets by [facility] tablet 00:00: mouth 2 (two) [facility] times [facility] daily. citalopram 0 Yes [id number] 40mg Take 1 [facility] 40 mg 4-29 tablet by [facility] tablet 00:00: mouth [place] 00 daily. [facility] pregabalin 0 Yes [id number] 150mg Take 1 [facility] 150 mg 4-29 capsule by [facility] capsule 00:00: mouth 3 (three) [facility] times [facility] daily. busPIRone 0 Yes [id number] 20mg Take 2 [facility] 10 mg 4-29 tablets by [facility] tablet 00:00: mouth 2 (two) [facility] times [facility] daily. citalopram 0 Yes [id number] 40mg Take 1 [facility] 40 mg 4-29 tablet by [facility] tablet 00:00: mouth [place] 00 daily. [facility] citalopram 0 Yes [id number] 40mg Take 1 [facility] 40 mg 4-29 tablet by [facility] tablet 00:00: mouth [place] 00 daily. [facility] citalopram 0 Yes [id number] 40mg Take 1 [facility] 40 mg 4-29 tablet by [facility] tablet 00:00: mouth [place] 00 daily. [facility] citalopram 0 Yes [id number] 40mg Take 1 [facility] 40 mg 4-29 tablet by [facility] tablet 00:00: mouth [place] 00 daily. [facility] citalopram 2021-0 Yes [id number] 40mg Take 1 [facility] 40 mg 4-29 tablet by [facility] tablet 00:00: mouth [place] 00 daily. [facility] citalopram 0 Yes [id number] 40mg Take 1 [facility] 40 mg 4-29 tablet by [facility] tablet 00:00: mouth [place] 00 daily. [facility] citalopram 0 Yes [id number] 40mg Take 1 [facility] 40 mg 4-29 tablet by [facility] tablet 00:00: mouth [place] 00 daily. [facility] citalopram 0 Yes [id number] 40mg Take 1 [facility] 40 mg 4-29 tablet by [facility] tablet 00:00: mouth [place] 00 daily. [facility] citalopram 0 Yes [id number] 40mg Take 1 [facility] 40 mg 4-29 tablet by [facility] tablet 00:00: mouth [place] 00 daily. [facility] citalopram Yes [id number] 40mg Take 1 [facility] 40 mg 4-29 tablet by [facility] tablet 00:00: mouth [place] 00 daily. [facility] citalopram 0 Yes [id number] 40mg Take 1 [facility] 40 mg 4-29 tablet by [facility] tablet 00:00: mouth [place] 00 daily. [facility] citalopram 0 Yes [id number] 40mg Take 1 [facility] 40 mg 4-29 tablet by [facility] tablet 00:00: mouth [place] 00 daily. [facility] citalopram 0 Yes [id number] 40mg Take 1 [facility] 40 mg 4-29 tablet by [facility] tablet 00:00: mouth [place] 00 daily. [facility] citalopram 0 Yes [id number] 40mg Take 1 [facility] 40 mg 4-29 tablet by [facility] tablet 00:00: mouth [place] 00 daily. [facility] citalopram 0 Yes [id number] 40mg Take 1 [facility] 40 mg 4-29 tablet by [facility] tablet 00:00: mouth [place] 00 daily. [facility] citalopram 0 Yes [id number] 40mg Take 1 [facility] 40 mg 4-29 tablet by [facility] tablet 00:00: mouth [place] 00 daily. [facility] citalopram 0 Yes [id number] 40mg Take 1 [facility] 40 mg 4-29 tablet by [facility] tablet 00:00: mouth [place] 00 daily. [facility] citalopram 0 Yes [id number] 40mg Take 1 [facility] 40 mg 4-29 tablet by [facility] tablet 00:00: mouth [place] 00 daily. [facility] citalopram 0 Yes [id number] 40mg Take 1 [facility] 40 mg 4-29 tablet by [facility] tablet 00:00: mouth [place] 00 daily. [facility] citalopram 0 Yes [id number] 40mg Take 1 [facility] 40 mg 4-29 tablet by [facility] tablet 00:00: mouth [place] 00 daily. [facility] citalopram 0 Yes [id number] 40mg Take 1 [facility] 40 mg 4-29 tablet by [facility] tablet 00:00: mouth [place] 00 daily. [facility] citalopram 0 Yes [id number] 40mg Take 1 [facility] 40 mg 4-29 tablet by [facility] tablet 00:00: mouth [place] 00 daily. [facility] citalopram 0 Yes [id number] 40mg Take 1 [facility] 40 mg 4-29 tablet by [facility] tablet 00:00: mouth [place] 00 daily. [facility] citalopram 0 Yes [id number] 40mg Take 1 [facility] 40 mg 4-29 tablet by [facility] tablet 00:00: mouth [place] 00 daily. [facility] citalopram 0 Yes [id number] 40mg Take 1 [facility] 40 mg 4-29 tablet by [facility] tablet 00:00: mouth [place] 00 daily. [facility] citalopram 0 Yes [id number] 40mg Take 1 [facility] 40 mg 4-29 tablet by [facility] tablet 00:00: mouth [place] 00 daily. [facility] citalopram 0 Yes [id number] 40mg Take 1 [facility] 40 mg 4-29 tablet by [facility] tablet 00:00: mouth [place] 00 daily. [facility] citalopram 0 Yes [id number] 40mg Take 1 [facility] 40 mg 4-29 tablet by [facility] tablet 00:00: mouth [place] 00 daily. [facility] citalopram 0 Yes [id number] 40mg Take 1 [facility] 40 mg 4-29 tablet by [facility] tablet 00:00: mouth [place] 00 daily. [facility] citalopram 0 Yes [id number] 40mg Take 1 [facility] 40 mg 4-29 tablet by [facility] tablet 00:00: mouth [place] 00 daily. [facility] citalopram 0 Yes [id number] 40mg Take 1 [facility] 40 mg 4-29 tablet by [facility] tablet 00:00: mouth [place] 00 daily. [facility] citalopram 0 Yes [id number] 40mg Take 1 [facility] 40 mg 4-29 tablet by [facility] tablet 00:00: mouth [place] 00 daily. [facility] citalopram 0 Yes [id number] 40mg Take 1 [facility] 40 mg 4-29 tablet by [facility] tablet 00:00: mouth [place] 00 daily. [facility] citalopram 0 Yes [id number] 40mg Take 1 [facility] 40 mg 4-29 tablet by [facility] tablet 00:00: mouth 00 daily. [facility] citalopram 0 Yes [id number] 40mg Take 1 [facility] 40 mg 4-29 tablet by [facility] tablet 00:00: mouth [place] 00 daily. [facility] pregabalin 0 Yes [id number] 150mg Take 1 [facility] 150 mg 4-29 capsule by [facility] capsule 00:00: mouth 3 (three) [facility] times [facility] daily. busPIRone 0 Yes [id number] 20mg Take 2 [facility] 10 mg 4-29 tablets by [facility] tablet 00:00: mouth 2 (two) [facility] times [facility] daily. citalopram 0 Yes [id number] 40mg Take 1 [facility] 40 mg 4-29 tablet by [facility] tablet 00:00: mouth [place] 00 daily. [facility] pregabalin 0 Yes [id number] 150mg Take 1 [facility] 150 mg 4-29 capsule by [facility] capsule 00:00: mouth 3 00 (three) [facility] times [facility] daily. busPIRone 2021-0 Yes [id number] 20mg Take 2 [facility] 10 mg 4-29 tablets by [facility] tablet 00:00: mouth 2 (two) [facility] times [facility] daily. citalopram 2021-0 Yes [id number] 40mg Take 1 [facility] 40 mg 4-29 tablet by [facility] tablet 00:00: mouth 00 daily. [facility] pregabalin 2021-0 Yes [id number] 150mg Take 1 [facility] 150 mg 4-29 capsule by [facility] capsule 00:00: mouth 3 (three) [facility] times [facility] daily. busPIRone 2021-0 Yes [id number] 20mg Take 2 [facility] 10 mg 4-29 tablets by [facility] tablet 00:00: mouth (two) [facility] times [facility] daily. citalopram 2021-0 Yes [id number] 40mg Take 1 [facility] 40 mg 4-29 tablet by [facility] tablet 00:00: mouth daily. [facility] pregabalin 2021-0 Yes [id number] 150mg Take 1 [facility] 150 mg 4-29 capsule by [facility] capsule 00:00: mouth (three) [facility] times [facility] daily. busPIRone 2021-0 Yes [id number] 20mg Take 2 [facility] 10 mg 4-29 tablets by [facility] tablet 00:00: mouth (two) [facility] times [facility] daily. citalopram 2021-0 Yes [id number] 40mg Take 1 [facility] 40 mg 4-29 tablet by [facility] tablet 00:00: mouth daily. [facility] pregabalin 2021-0 Yes [id number] 150mg Take 1 [facility] 150 mg 4-29 capsule by [facility] capsule 00:00: mouth (three) [facility] times [facility] daily. busPIRone 2021-0 Yes [id number] 20mg Take 2 [facility] 10 mg 4-29 tablets by [facility] tablet 00:00: mouth (two) [facility] times [facility] daily. citalopram 2021-0 Yes [id number] 40mg Take 1 [facility] 40 mg 4-29 tablet by [facility] tablet 00:00: mouth 00 daily. [facility] pregabalin 2021-0 Yes [id number] 150mg Take 1 [facility] 150 mg 4-29 capsule by [facility] capsule 00:00: mouth 3 (three) [facility] times [facility] daily. busPIRone 2021-0 Yes [id number] 20mg Take 2 [facility] 10 mg 4-29 tablets by [facility] tablet 00:00: mouth (two) [facility] times [facility] daily. citalopram 2021-0 Yes [id number] 40mg Take 1 [facility] 40 mg 4-29 tablet by [facility] tablet 00:00: mouth 00 daily. [facility] pregabalin 2021-0 Yes [id number] 150mg Take 1 [facility] 150 mg 4-29 capsule by [facility] capsule 00:00: mouth 3 (three) [facility] times [facility] daily. busPIRone 2021-0 Yes [id number] 20mg Take 2 [facility] 10 mg 4-29 tablets by [facility] tablet 00:00: mouth (two) [facility] times [facility] daily. citalopram 2021-0 Yes [id number] 40mg Take 1 [facility] 40 mg 4-29 tablet by [facility] tablet 00:00: mouth 00 daily. [facility] pregabalin 2021-0 Yes [id number] 150mg Take 1 [facility] 150 mg 4-29 capsule by [facility] capsule 00:00: mouth (three) [facility] times [facility] daily. busPIRone 2021-0 Yes [id number] 20mg Take 2 [facility] 10 mg 4-29 tablets by [facility] tablet 00:00: mouth (two) [facility] times [facility] daily. citalopram 2021-0 Yes [id number] 40mg Take 1 [facility] 40 mg 4-29 tablet by [facility] tablet 00:00: mouth daily. [facility] pregabalin 2021-0 Yes [id number] 150mg Take 1 [facility] 150 mg 4-29 capsule by [facility] capsule 00:00: mouth 3 (three) [facility] times [facility] daily. busPIRone 2021-0 Yes [id number] 20mg Take 2 [facility] 10 mg 4-29 tablets by [facility] tablet 00:00: mouth (two) [facility] times [facility] daily. citalopram 2021-0 Yes [id number] 40mg Take 1 [facility] 40 mg 4-29 tablet by [facility] tablet 00:00: mouth 00 daily. [facility] pregabalin 2021-0 Yes [id number] 150mg Take 1 [facility] 150 mg 4-29 capsule by [facility] capsule 00:00: mouth 3 00 (three) Medical times [facility] daily. busPIRone 2021-0 Yes [id number] 20mg Take 2 [facility] 10 mg 4-29 tablets by [facility] tablet 00:00: mouth 2 00 (two) Medical times [facility] daily. citalopram 2021-0 Yes [id number] 40mg Take 1 [facility] 40 mg 4-29 tablet by [facility] tablet 00:00: mouth [place] 00 daily. [facility] pregabalin 0 Yes [id number] 150mg Take 1 [facility] 150 mg 4-29 capsule by [facility] capsule 00:00: mouth 3 00 (three) Medical times [facility] daily. busPIRone 2021-0 Yes [id number] 20mg Take 2 [facility] 10 mg 4-29 tablets by [facility] tablet 00:00: mouth 2 00 (two) Medical times [facility] daily. citalopram 2021- Yes [id number] 40mg Take 1 [facility] 40 mg 4-29 tablet by [facility] tablet 00:00: mouth 00 daily. [facility] pregabalin 2021- No [id number] 150mg Take 1 [facility] 150 mg 4-29 10-13 capsule by [facility] capsule 00:00: 00:00 mouth 3 [place] 00 :00 (three) Medical times [facility] daily. busPIRone 2021-0 2- No [id number] 20mg Take 2 [facility] 10 mg 4-29 10-13 tablets by [facility] tablet 00:00: 00:00 mouth 2 [place] 00 :00 (two) Medical times [facility] daily. pantoprazol 2021-0 Yes [id number] 40mg Take 1 [facility] e 40 mg EC 4-04 tablet by [facility] tablet 00:00: mouth [place] 00 daily. [facility] pantoprazol 2021-0 Yes [id number] 40mg Take 1 [facility] e 40 mg EC 4-04 tablet by [facility] tablet 00:00: mouth [place] 00 daily. [facility] pantoprazol 2021-0 Yes [id number] 40mg Take 1 [facility] e 40 mg EC 4-04 tablet by [facility] tablet 00:00: mouth [place] 00 daily. [facility] pantoprazol 2021-0 Yes [id number] 40mg Take 1 [facility] e 40 mg EC 4-04 tablet by [facility] tablet 00:00: mouth [place] 00 daily. [facility] pantoprazol 2021-0 Yes [id number] 40mg Take 1 [facility] e 40 mg EC 4-04 tablet by [facility] tablet 00:00: mouth [place] 00 daily. [facility] pantoprazol 2021-0 Yes [id number] 40mg Take 1 [facility] e 40 mg EC 4-04 tablet by [facility] tablet 00:00: mouth [place] 00 daily. [facility] pantoprazol 2021-0 Yes [id number] 40mg Take 1 [facility] e 40 mg EC 4-04 tablet by [facility] tablet 00:00: mouth [place] 00 daily. [facility] pantoprazol 2021-0 Yes [id number] 40mg Take 1 [facility] e 40 mg EC 4-04 tablet by [facility] tablet 00:00: mouth [place] 00 daily. [facility] pantoprazol 2021-0 Yes [id number] 40mg Take 1 [facility] e 40 mg EC 4-04 tablet by [facility] tablet 00:00: mouth [place] 00 daily. [facility] pantoprazol 2021-0 Yes [id number] 40mg Take 1 [facility] e 40 mg EC 4-04 tablet by [facility] tablet 00:00: mouth [place] 00 daily. [facility] pantoprazol 2021-0 Yes [id number] 40mg Take 1 [facility] e 40 mg EC 4-04 tablet by [facility] tablet 00:00: mouth [place] 00 daily. [facility] pantoprazol 2021-0 Yes [id number] 40mg Take 1 [facility] e 40 mg EC 4-04 tablet by [facility] tablet 00:00: mouth [place] 00 daily. [facility] pantoprazol 2021-0 Yes [id number] 40mg Take 1 [facility] e 40 mg EC 4-04 tablet by [facility] tablet 00:00: mouth [place] 00 daily. [facility] pantoprazol 2021-0 Yes [id number] 40mg Take 1 [facility] e 40 mg EC 4-04 tablet by [facility] tablet 00:00: mouth [place] 00 daily. [facility] pantoprazol 2021-0 Yes [id number] 40mg Take 1 [facility] e 40 mg EC 4-04 tablet by [facility] tablet 00:00: mouth [place] 00 daily. [facility] pantoprazol 2021-0 Yes [id number] 40mg Take 1 [facility] e 40 mg EC 4-04 tablet by [facility] tablet 00:00: mouth [place] 00 daily. [facility] pantoprazol 2021-0 Yes [id number] 40mg Take 1 [facility] e 40 mg EC 4-04 tablet by [facility] tablet 00:00: mouth [place] 00 daily. [facility] pantoprazol 2021-0 Yes [id number] 40mg Take 1 [facility] e 40 mg EC 4-04 tablet by [facility] tablet 00:00: mouth [place] 00 daily. [facility] pantoprazol 2021-0 Yes [id number] 40mg Take 1 [facility] e 40 mg EC 4-04 tablet by [facility] tablet 00:00: mouth [place] 00 daily. [facility] pantoprazol 2021-0 Yes [id number] 40mg Take 1 [facility] e 40 mg EC 4-04 tablet by [facility] tablet 00:00: mouth [place] 00 daily. [facility] pantoprazol 2021-0 Yes [id number] 40mg Take 1 [facility] e 40 mg EC 4-04 tablet by [facility] tablet 00:00: mouth [place] 00 daily. [facility] pantoprazol 2021-0 Yes [id number] 40mg Take 1 [facility] 40 mg EC 4-04 tablet by [facility] tablet 00:00: mouth [place] 00 daily. [facility] pantoprazol 2021-0 Yes [id number] 40mg Take 1 [facility] 40 mg EC 4-04 tablet by [facility] tablet 00:00: mouth [place] 00 daily. [facility] pantoprazol 2021-0 Yes [id number] 40mg Take 1 [facility] 40 mg EC 4-04 tablet by [facility] tablet 00:00: mouth [place] 00 daily. [facility] pantoprazol 2021-0 Yes [id number] 40mg Take 1 [facility] 40 mg EC 4-04 tablet by [facility] tablet 00:00: mouth [place] 00 daily. [facility] pantoprazol 2021-0 Yes [id number] 40mg Take 1 [facility] 40 mg EC 4-04 tablet by [facility] tablet 00:00: mouth [place] 00 daily. [facility] pantoprazol 2021-0 Yes [id number] 40mg Take 1 [facility] 40 mg EC 4-04 tablet by [facility] of tablet 00:00: mouth [place] 00 daily. [facility] pantoprazol 2021-0 Yes [id number] 40mg Take 1 [facility] e 40 mg EC 4-04 tablet by [facility] of tablet 00:00: mouth [place] 00 daily. [facility] [place] pantoprazol 2-0 Yes [id number] 40mg Take 1 [facility] e 40 mg EC 4-04 tablet by [facility] of tablet 00:00: mouth [place] 00 daily. [facility] pantoprazol 2-0 Yes [id number] 40mg Take 1 [facility] 40 mg EC 4-04 tablet by [facility] of tablet 00:00: mouth [place] 00 daily. [facility] pantoprazol 2-0 2- No [id number] 40mg Take 1 [facility] e 40 mg EC 4-04 -16 tablet by [facility] of tablet 00:00: 00:00 mouth [place] 00 :00 daily. [facility] pantoprazol 2-0 2- No [id number] 40mg Take 1 [facility] e 40 mg EC 4-04 -16 tablet by [facility] of tablet 00:00: 00:00 mouth [place] 00 :00 daily. [facility] Blood-Gluco 2-0 Yes [id number] Use twice [facility] se Meter 3-08 a day for [facility] of (ONETOUCH 00:00: ICD CODE [place] VERIO FLEX E11.65 Medical START) Kit [facility] Blood-Gluco 2-0 Yes [id number] Use twice [facility] se Meter 3-08 a day for [facility] of (ONETOUCH 00:00: ICD CODE [place] VERIO FLEX E11.65 Medical START) Kit [facility] Blood-Gluco 2-0 Yes [id number] Use twice [facility] se M[facility] 3-08 a day for [facility] of (ONETOUCH 00:00: ICD CODE [place] VERIO FLEX E11.65 Medical START) Kit [facility] Blood-Gluco 2-0 Yes [id number] Use twice [facility] M[facility] 3-08 a day for [facility] of (ONETOUCH 00:00: ICD CODE [place] VERIO FLEX E11.65 Medical START) Kit [facility] Blood-Gluco 2-0 Yes [id number] Use twice [facility] 3-08 a day for [facility] of (ONETOUCH 00:00: ICD CODE [place] VERIO FLEX E11.65 Medical START) Kit [facility] Blood-Gluco 2022-0 Yes [id number] Use twice [facility] 3-08 a day for [facility] of (ONETOUCH 00:00: ICD CODE [place] VERIO FLEX E11.65 Medical START) Kit [facility] Blood-Gluco 2022-0 Yes [id number] Use twice [facility] 3-08 a day for [facility] of (ONETOUCH 00:00: ICD CODE [place] VERIO FLEX [facility] START) Kit [facility] Blood-Gluco 2022-0 Yes [id number] Use twice [facility] 3-08 a day for [facility] of (ONETOUCH 00:00: ICD CODE [place] VERIO FLEX [facility] START) Kit [facility] Blood-Gluco 2022-0 Yes [id number] Use twice [facility] 3-08 a day for [facility] of (ONETOUCH 00:00: ICD CODE [place] VERIO FLEX [facility] START) Kit [facility] Blood-Gluco 2022-0 Yes [id number] Use twice [facility] 3-08 a day for [facility] of (ONETOUCH 00:00: ICD CODE [place] VERIO FLEX [facility] START) Kit [facility] Blood-Gluco 2022-0 Yes [id number] Use twice [facility] 3-08 a day for [facility] of (ONETOUCH 00:00: ICD CODE [place] VERIO FLEX [facility] START) Kit [facility] Blood-Gluco 2022-0 Yes [id number] Use twice [facility] 3-08 a day for [facility] of (ONETOUCH 00:00: ICD CODE [place] VERIO FLEX [facility] START) Kit [facility] Blood-Gluco 2022-0 Yes [id number] Use twice [facility] 3-08 a day for [facility] of (ONETOUCH 00:00: ICD CODE [place] VERIO FLEX [facility] START) Kit [facility] Blood-Gluco 2022-0 Yes [id number] Use twice [facility] 3-08 a day for [facility] of (ONETOUCH 00:00: ICD CODE [place] VERIO FLEX [facility] START) Kit [facility] Blood-Gluco 2022-0 Yes [id number] Use twice [facility] 3-08 a day for [facility] of (ONETOUCH 00:00: ICD CODE [place] VERIO FLEX [facility] START) Kit [facility] Blood-Gluco 2022-0 Yes [id number] Use twice [facility] M[facility] 3-08 a day for ity of (ONETOUCH 00:00: [place] FLEX [facility] START[place] Kit Branch Blood-Gluco 2022-0 Yes [id number] Use twice [facility] 3-08 a day for ity of (ONETOUCH 00:00: [place] VER[place] FLEX Medical START) Kit Branch Blood-Gluco 2022-0 Yes [id number] Use twice [facility] 3-08 a day for ity of (ONETOUCH 00:00: [place] VER[place] FLEX Medical START) Kit Branch Blood-Gluco 2022-0 Yes [id number] Use twice [facility] 3-08 a day for ity of (ONETOUCH 00:00: [place] VERIO FLEX Medical START) Kit Branch Blood-Gluco 2022-0 Yes [id number] Use twice [facility] 3-08 a day for ity of (ONETOUCH 00:00: [place] VERIO FLEX Medical START) Kit Branch Blood-Gluco 2022-0 Yes [id number] Use twice [facility] 3-08 a day for ity of (ONETOUCH 00:00: [place] VERIO FLEX Medical START) Kit Branch Blood-Gluco 2022-0 Yes [id number] Use twice [facility] 3-08 a day for ity of (ONETOUCH 00:00: [place] VERIO FLEX Medical START) Kit Branch Blood-Gluco 2022-0 Yes [id number] Use twice [facility] [place] 3-08 a day for ity of (ONETOUCH 00:00: [place] VERIO FLEX Medical START) Kit Branch Blood-Gluco 2022-0 Yes [id number] Use twice [facility] 3-08 a day for ity of (ONETOUCH 00:00: [place] VERIO FLEX Medical START) Kit Branch Blood-Gluco 2022-0 Yes [id number] Use twice [facility] 3-08 a day for ity of (ONETOUCH 00:00: [place] VERIO FLEX Medical START) Kit Branch Blood-Gluco 2022-0 Yes [id number] Use twice [facility] 3-08 a day for ity of (ONETOUCH 00:00: ICD CODE [place] VERIO FLEX E11.65 Medical START) Kit Branch Blood-Gluco 2022-0 Yes [id number] Use twice [facility] se [facility] 3-08 a day for ity of (ONETOUCH 00:00: ICD CODE [place] VERIO FLEX E11.65 Medical START) Kit Branch Blood-Gluco 2022-0 Yes [id number] Use twice [facility] 3-08 a day for ity of (ONETOUCH 00:00: ICD [place] VERIO FLEX E11.65 Medical START) Kit Branch Blood-Gluco 2022-0 Yes [id number] Use twice [facility] 3-08 a day for ity of (ONETOUCH 00:00: ICD CODE [place] VERIO FLEX E11.65 Medical START) Kit Branch Blood-Gluco 2022-0 Yes [id number] Use twice [facility] 3-08 a day for ity of (ONETOUCH 00:00: ICD CODE [place] VERIO FLEX E11.65 Medical START) Kit Branch Blood-Gluco 2022-0 Yes [id number] Use twice [facility] 3-08 a day for ity of (ONETOUCH 00:00: ICD CODE [place] VERIO FLEX E11.65 Medical START) Kit Branch Blood-Gluco 2022-0 Yes [id number] Use twice [facility] 3-08 a day for ity of (ONETOUCH 00:00: ICD CODE [place] VERIO FLEX E11.65 Medical START) Kit Branch Blood-Gluco 2022-0 Yes [id number] Use twice [facility] 3-08 a day for ity of (ONETOUCH 00:00: ICD CODE [place] VERIO FLEX E11.65 Medical START) Kit Branch Blood-Gluco 2022-0 Yes [id number] Use twice [facility] 3-08 a day for ity of (ONETOUCH 00:00: ICD CODE [place] VERIO FLEX E11.65 Medical START) Kit Branch Blood-Gluco 2022-0 Yes [id number] Use twice [facility] 3-08 a day for ity of (ONETOUCH 00:00: [place] VERIO FLEX Medical START) [facility] Blood-Gluco 2021-0 Yes [id number] Use twice [facility] se M[facility] 3-08 a day for ity of (ONETOUCH 00:00: ICD CODE [place] forrester VERIO FLEX 63 Medical START) [facility] Blood-Gluco 2- No [id number] Use twice Univers se Meter 3-05 04- a day for ity o f (ONETOUCH 00:00: 00:00 ICD CODE [place] VERIO FLEX 00 :63 Medical START) [facility] Blood-Gluco 0 2021- No [id number] Use twice Univers se Meter 3-05 04- a day for ity o f (ONETOUCH 00:00: 00:00 ICD CODE [place] VERIO FLEX 00 : Medical START) [facility] Blood-Gluco 2021- No [id number] Use twice Univers se Meter 3-05 04- a day for ity o f (ONETOUCH 00:00: 00:00 ICD CODE [place] VERIO FLEX 00 : Medical START) [facility] mirabegron 0 Yes [id number] 50mg Take 1 Univers (MYRBETRIQ) 1-18 tablet by ity of 50 mg 00:00: mouth [place] tablet 00 daily. [facility] mirabegron 0 Yes [id number] 50mg Take 1 Univers (MYRBETRIQ) 1-18 tablet by ity of 50 mg 00:00: mouth [place] tablet 00 daily. [facility] mirabegron 0 Yes [id number] 50mg Take 1 Univers (MYRBETRIQ) 1-18 tablet by ity of 50 mg 00:00: mouth [place] tablet 00 daily. [facility] mirabegron 0 Yes [id number] 50mg Take 1 Univers (MYRBETRIQ) 1-18 tablet by ity of 50 mg 00:00: mouth [place] tablet 00 daily. [facility] mirabegron 0 Yes [id number] 50mg Take 1 Univers (MYRBETRIQ) 1-18 tablet by ity of 50 mg 00:00: mouth [place] tablet 00 daily. [facility] mirabegron 0 Yes [id number] 50mg Take 1 Univers (MYRBETRIQ) 1-18 tablet by ity of 50 mg 00:00: mouth [place] tablet 00 daily. [facility] mirabegron 0 Yes [id number] 50mg Take 1 Univers (MYRBETRIQ) 1-18 tablet by ity of 50 mg 00:00: mouth [place] tablet 00 daily. [facility] mirabegron 0 Yes [id number] 50mg Take 1 Univers (MYRBETRIQ) 1-18 tablet by ity of 50 mg 00:00: mouth [place] tablet 00 daily. [facility] mirabegron 0 Yes [id number] 50mg Take 1 Univers (MYRBETRIQ) 1-18 tablet by ity of 50 mg 00:00: mouth [place] tablet 00 daily. [facility] mirabegron 0 Yes [id number] 50mg Take 1 Univers (MYRBETRIQ) 1-18 tablet by ity of 50 mg 00:00: mouth [place] tablet 00 daily. [facility] mirabegron 0 Yes [id number] 50mg Take 1 Univers (MYRBETRIQ) 1-18 tablet by ity of 50 mg 00:00: mouth [place] tablet 00 daily. [facility] mirabegron 0 Yes [id number] 50mg Take 1 Univers (MYRBETRIQ) 1-18 tablet by ity of 50 mg 00:00: mouth [place] tablet 00 daily. [facility] mirabegron 0 Yes [id number] 50mg Take 1 Univers (MYRBETRIQ) 1-18 tablet by ity of 50 mg 00:00: mouth [place] tablet 00 daily. [facility] mirabegron 0 Yes [id number] 50mg Take 1 Univers (MYRBETRIQ) 1-18 tablet by ity of 50 mg 00:00: mouth [place] tablet 00 daily. [facility] mirabegron 0 Yes [id number] 50mg Take 1 Univers (MYRBETRIQ) 1-18 tablet by ity of 50 mg 00:00: mouth [place] tablet 00 daily. [facility] mirabegron 0 Yes [id number] 50mg Take 1 Univers (MYRBETRIQ) 1-18 tablet by ity of 50 mg 00:00: mouth [place] tablet 00 daily. [facility] mirabegron 0 Yes [id number] 50mg Take 1 Univers (MYRBETRIQ) 1-18 tablet by ity of 50 mg 00:00: mouth [place] tablet 00 daily. [facility] mirabegron 0 Yes [id number] 50mg Take 1 Univers (MYRBETRIQ) 1-18 tablet by ity of 50 mg 00:00: mouth [place] tablet 00 daily. [facility] mirabegron 0 Yes [id number] 50mg Take 1 Univers (MYRBETRIQ) 1-18 tablet by ity of 50 mg 00:00: mouth [place] tablet 00 daily. [facility] mirabegron 0 Yes [id number] 50mg Take 1 Univers (MYRBETRIQ) 1-18 tablet by ity of 50 mg 00:00: mouth [place] tablet 00 daily. [facility] mirabegron 0 Yes [id number] 50mg Take 1 Univers (MYRBETRIQ) 1-18 tablet by ity of 50 mg 00:00: mouth [place] tablet 00 daily. [facility] mirabegron 0 Yes [id number] 50mg Take 1 Univers (MYRBETRIQ) 1-18 tablet by ity of 50 mg 00:00: mouth [place] tablet 00 daily. [facility] mirabegron 0 Yes [id number] 50mg Take 1 Univers (MYRBETRIQ) 1-18 tablet by ity of 50 mg 00:00: mouth [place] tablet 00 daily. [facility] mirabegron 0 Yes [id number] 50mg Take 1 Univers (MYRBETRIQ) 1-18 tablet by ity of 50 mg 00:00: mouth [place] tablet 00 daily. [facility] mirabegron 0 Yes [id number] 50mg Take 1 Univers (MYRBETRIQ) 1-18 tablet by ity of 50 mg 00:00: mouth [place] tablet 00 daily. [facility] mirabegron 0 Yes [id number] 50mg Take 1 Univers (MYRBETRIQ) 1-18 tablet by ity of 50 mg 00:00: mouth [place] tablet 00 daily. [facility] mirabegron 0 Yes [id number] 50mg Take 1 Univers (MYRBETRIQ) 1-18 tablet by ity of 50 mg 00:00: mouth [place] tablet 00 daily. [facility] mirabegron 2021-0 Yes [id number] 50mg Take 1 Univers (MYRBETRIQ) 1-18 tablet by ity of 50 mg 00:00: mouth [place] tablet 00 daily. [facility] Branch mirabegron 0 Yes [id number] 50mg Take 1 Univers (MYRBETRIQ) 1-18 tablet by ity of 50 mg 00:00: mouth [place] tablet 00 daily. [facility] Branch mirabegron 0 Yes [id number] 50mg Take 1 Univers (MYRBETRIQ) 1-18 tablet by ity of 50 mg 00:00: mouth [place] tablet 00 daily. [facility] Branch mirabegron 2021-0 Yes [id number] 50mg Take 1 Univers (MYRBETRIQ) 1-18 tablet by ity of 50 mg 00:00: mouth [place] tablet 00 daily. [facility] mirabegron 0 Yes [id number] 50mg Take 1 Univers (MYRBETRIQ) 1-18 tablet by ity of 50 mg 00:00: mouth [place] tablet 00 daily. [facility] mirabegron 0 Yes [id number] 50mg Take 1 Univers (MYRBETRIQ) 1-18 tablet by ity of 50 mg 00:00: mouth [place] tablet 00 daily. [facility] Branch mirabegron 0 Yes [id number] 50mg Take 1 Univers (MYRBETRIQ) 1-18 tablet by ity of 50 mg 00:00: mouth [place] tablet 00 daily. [facility] mirabegron 0 Yes [id number] 50mg Take 1 Univers (MYRBETRIQ) 1-18 tablet by ity of 50 mg 00:00: mouth [place] tablet 00 daily. [facility] Branch mirabegron 2021-0 Yes [id number] 50mg Take 1 Univers (MYRBETRIQ) 1-18 tablet by ity of 50 mg 00:00: mouth [place] tablet 00 daily. [facility] Branch mirabegron 0 Yes [id number] 50mg Take 1 Univers (MYRBETRIQ) 1-18 tablet by ity of 50 mg 00:00: mouth [place] tablet 00 daily. [facility] mirabegron 2021-0 Yes [id number] 50mg Take 1 Univers (MYRBETRIQ) 1-18 tablet by ity of 50 mg 00:00: mouth [place] tablet 00 daily. [facility] mirabegron 0 Yes [id number] 50mg Take 1 Univers (MYRBETRIQ) 1-18 tablet by ity of 50 mg 00:00: mouth [place] tablet 00 daily. [facility] mirabegron 0 Yes [id number] 50mg Take 1 Univers (MYRBETRIQ) 1-18 tablet by ity of 50 mg 00:00: mouth [place] tablet 00 daily. [facility] mirabegron 0 Yes [id number] 50mg Take 1 Univers (MYRBETRIQ) 1-18 tablet by ity of 50 mg 00:00: mouth [place] tablet 00 daily. [facility] mirabegron 0 Yes [id number] 50mg Take 1 Univers (MYRBETRIQ) 1-18 tablet by ity of 50 mg 00:00: mouth [place] tablet 00 daily. [facility] mirabegron 0 Yes [id number] 50mg Take 1 Univers (MYRBETRIQ) 1-18 tablet by ity of 50 mg 00:00: mouth [place] tablet 00 daily. [facility] mirabegron 0 Yes [id number] 50mg Take 1 Univers (MYRBETRIQ) 1-18 tablet by ity of 50 mg 00:00: mouth [place] tablet 00 daily. [facility] mirabegron 0 Yes [id number] 50mg Take 1 Univers (MYRBETRIQ) 1-18 tablet by ity of 50 mg 00:00: mouth [place] tablet 00 daily. [facility] mirabegron 0 Yes [id number] 50mg Take 1 Univers (MYRBETRIQ) 1-18 tablet by ity of 50 mg 00:00: mouth [place] tablet 00 daily. [facility] mirabegron 0 Yes [id number] 50mg Take 1 Univers (MYRBETRIQ) 1-18 tablet by ity of 50 mg 00:00: mouth [place] tablet 00 daily. [facility] mirabegron 0 Yes [id number] 50mg Take 1 Univers (MYRBETRIQ) 1-18 tablet by ity of 50 mg 00:00: mouth [place] tablet 00 daily. [facility] mirabegron 0 2021- No [id number] 50mg Take 1 Univers (MYRBETRIQ) 1-18 10-13 tablet by it y of 50 mg 00:00: 00:00 mouth [place] tablet 00 :00 daily. Medical Branch semaglutide 2020-09 Yes [id number] Inject Univers (OZEMPIC) 2-01 0.25 mg ity of 0.25 mg or 00:00: under the [place] 0.5 mg(2 00 skin Medical mg/1.5 mL) weekly. Branch PnIj semaglutide 2020-09 Yes [id number] Inject Univers (OZEMPIC) 2-01 0.25 mg ity of 0.25 mg or 00:00: under the [place] 0.5 mg(2 00 skin Medical mg/1.5 mL) weekly. Branch PnIj semaglutide 2020-09 Yes [id number] Inject Univers (OZEMPIC) 2-01 0.25 mg ity of 0.25 mg or 00:00: under the [place] 0.5 mg(2 00 skin Medical mg/1.5 mL) weekly. Branch PnIj semaglutide 2020-09 Yes [id number] Inject Univers (OZEMPIC) 2-01 0.25 mg ity of 0.25 mg or 00:00: under the [place] 0.5 mg(2 00 skin Medical mg/1.5 mL) weekly. Branch PnIj semaglutide 2020-09 Yes [id number] Inject Univers (OZEMPIC) 2-01 0.25 mg ity of 0.25 mg or 00:00: under the [place] 0.5 mg(2 00 skin Medical mg/1.5 mL) weekly. Branch PnIj semaglutide 2020-09 Yes [id number] Inject Univers (OZEMPIC) 2-01 0.25 mg ity of 0.25 mg or 00:00: under the [place] 0.5 mg(2 00 skin Medical mg/1.5 mL) weekly. Branch PnIj semaglutide 2020-09 Yes [id number] Inject Univers (OZEMPIC) 2-01 0.25 mg ity of 0.25 mg or 00:00: under the [place] 0.5 mg(2 00 skin Medical mg/1.5 mL) weekly. Branch PnIj semaglutide 2020-09 Yes [id number] Inject Univers (OZEMPIC) 2-01 0.25 mg ity of 0.25 mg or 00:00: under the [place] 0.5 mg(2 00 skin Medical mg/1.5 mL) weekly. Branch RyIj semaglutide 2020-09 Yes [id number] Inject Univers (OZEMPIC) 2-01 0.25 mg ity of 0.25 mg or 00:00: under the [place] 0.5 mg(2 00 skin Medical mg/1.5 mL) weekly. Branch RyIj semaglutide 2020-09 Yes [id number] Inject Univers (OZEMPIC) 2-01 0.25 mg ity of 0.25 mg or 00:00: under the [place] 0.5 mg(2 00 skin Medical mg/1.5 mL) weekly. Branch RyMali semaglutide 2020-09 Yes [id number] Inject Univers (OZEMPIC) 2-01 0.25 mg ity of 0.25 mg or 00:00: under the [place] 0.5 mg(2 00 skin Medical mg/1.5 mL) weekly. Branch RyMali semaglutide 2020-09 Yes [id number] Inject Univers (OZEMPIC) 2-01 0.25 mg ity of 0.25 mg or 00:00: under the [place] 0.5 mg(2 00 skin Medical mg/1.5 mL) weekly. Branch RyMali semaglutide 2020-09 Yes [id number] Inject Univers (OZEMPIC) 2-01 0.25 mg ity of 0.25 mg or 00:00: under the [place] 0.5 mg(2 00 skin Medical mg/1.5 mL) weekly. Branch RyIj semaglutide 2020-09 Yes [id number] Inject Univers (OZEMPIC) 2-01 0.25 mg ity of 0.25 mg or 00:00: under the [place] 0.5 mg(2 00 skin Medical mg/1.5 mL) weekly. Branch RyMali semaglutide 2020-09 Yes [id number] Inject Univers (OZEMPIC) 2-01 0.25 mg ity of 0.25 mg or 00:00: under the [place] 0.5 mg(2 00 skin Medical mg/1.5 mL) weekly. Branch RyIj semaglutide 2020-09 Yes [id number] Inject Univers (OZEMPIC) 2-01 0.25 mg ity of 0.25 mg or 00:00: under the [place] 0.5 mg(2 00 skin Medical mg/1.5 mL) weekly. Branch PnIj semaglutide 2020-09 Yes [id number] Inject Univers (OZEMPIC) 2-01 0.25 mg ity of 0.25 mg or 00:00: under the [place] 0.5 mg(2 00 skin Medical mg/1.5 mL) weekly. Branch PnIj semaglutide 2020-09 Yes [id number] Inject Univers (OZEMPIC) 2-01 0.25 mg ity of 0.25 mg or 00:00: under the [place] 0.5 mg(2 00 skin Medical mg/1.5 mL) weekly. Branch PnIj semaglutide 2020-09 Yes [id number] Inject Univers (OZEMPIC) 2-01 0.25 mg ity of 0.25 mg or 00:00: under the [place] 0.5 mg(2 00 skin Medical mg/1.5 mL) weekly. Branch PnIj semaglutide 2020-09 Yes [id number] Inject Univers (OZEMPIC) 2-01 0.25 mg ity of 0.25 mg or 00:00: under the [place] 0.5 mg(2 00 skin Medical mg/1.5 mL) weekly. Branch PnIj semaglutide 2020-09 Yes [id number] Inject Univers (OZEMPIC) 2-01 0.25 mg ity of 0.25 mg or 00:00: under the [place] 0.5 mg(2 00 skin Medical mg/1.5 mL) weekly. Branch PnIj semaglutide 2020-09 Yes [id number] Inject Univers (OZEMPIC) 2-01 0.25 mg ity of 0.25 mg or 00:00: under the [place] 0.5 mg(2 00 skin Medical mg/1.5 mL) weekly. Branch PnIj semaglutide 2020-09 Yes [id number] Inject Univers (OZEMPIC) 2-01 0.25 mg ity of 0.25 mg or 00:00: under the [place] 0.5 mg(2 00 skin Medical mg/1.5 mL) weekly. Branch PnIj semaglutide 2020-09 Yes [id number] Inject Univers (OZEMPIC) 2-01 0.25 mg ity of 0.25 mg or 00:00: under the [place] 0.5 mg(2 00 skin Medical mg/1.5 mL) weekly. Branch PnIj semaglutide 2020-09 Yes [id number] Inject Univers (OZEMPIC) 2-01 0.25 mg ity of 0.25 mg or 00:00: under the [place] 0.5 mg(2 00 skin Medical mg/1.5 mL) weekly. Branch PnIj semaglutide 2020-09 Yes [id number] Inject Univers (OZEMPIC) 2-01 0.25 mg ity of 0.25 mg or 00:00: under the [place] 0.5 mg(2 00 skin Medical mg/1.5 mL) weekly. Branch PnIj semaglutide 2020-09 Yes [id number] Inject Univers (OZEMPIC) 2-01 0.25 mg ity of 0.25 mg or 00:00: under the [place] 0.5 mg(2 00 skin Medical mg/1.5 mL) weekly. Branch PnIj semaglutide 2020-09 Yes [id number] Inject Univers (OZEMPIC) 2-01 0.25 mg ity of 0.25 mg or 00:00: under the [place] 0.5 mg(2 00 skin Medical mg/1.5 mL) weekly. Branch PnIj semaglutide 2020-09 Yes [id number] Inject Univers (OZEMPIC) 2-01 0.25 mg ity of 0.25 mg or 00:00: under the [place] 0.5 mg(2 00 skin Medical mg/1.5 mL) weekly. Branch PnIj semaglutide 2020-09 Yes [id number] Inject Univers (OZEMPIC) 2-01 0.25 mg ity of 0.25 mg or 00:00: under the [place] 0.5 mg(2 00 skin Medical mg/1.5 mL) weekly. Branch PnIj semaglutide 2020-09 Yes [id number] Inject Univers (OZEMPIC) 2-01 0.25 mg ity of 0.25 mg or 00:00: under the [place] 0.5 mg(2 00 skin Medical mg/1.5 mL) weekly. Branch PnIj semaglutide 2020-09 Yes [id number] Inject Univers (OZEMPIC) 2-01 0.25 mg ity of 0.25 mg or 00:00: under the [place] 0.5 mg(2 00 skin Medical mg/1.5 mL) weekly. Branch PnIj semaglutide 2020-09 Yes [id number] Inject Univers (OZEMPIC) 2-01 0.25 mg ity of 0.25 mg or 00:00: under the [place] 0.5 mg(2 00 skin Medical mg/1.5 mL) weekly. Branch PnIj semaglutide 2020-09 Yes [id number] Inject Univers (OZEMPIC) 2-01 0.25 mg ity of 0.25 mg or 00:00: under the [place] 0.5 mg(2 00 skin Medical mg/1.5 mL) weekly. Branch PnIj semaglutide 2020-09 Yes [id number] Inject Univers (OZEMPIC) 2-01 0.25 mg ity of 0.25 mg or 00:00: under the [place] 0.5 mg(2 00 skin Medical mg/1.5 mL) weekly. Branch PnIj semaglutide 2020-09 Yes [id number] Inject Univers (OZEMPIC) 2-01 0.25 mg ity of 0.25 mg or 00:00: under the [place] 0.5 mg(2 00 skin Medical mg/1.5 mL) weekly. Branch PnIj semaglutide 2020-09 Yes [id number] Inject Univers (OZEMPIC) 2-01 0.25 mg ity of 0.25 mg or 00:00: under the [place] 0.5 mg(2 00 skin Medical mg/1.5 mL) weekly. Branch PnIj semaglutide 2020-09 Yes [id number] Inject Univers (OZEMPIC) 2-01 0.25 mg ity of 0.25 mg or 00:00: under the [place] 0.5 mg(2 00 skin Medical mg/1.5 mL) weekly. Branch PnIj semaglutide 2020-09 Yes [id number] Inject Univers (OZEMPIC) 2-01 0.25 mg ity of 0.25 mg or 00:00: under the [place] 0.5 mg(2 00 skin Medical mg/1.5 mL) weekly. Branch PnIj semaglutide 2020-09 Yes [id number] Inject Univers (OZEMPIC) 2-01 0.25 mg ity of 0.25 mg or 00:00: under the [place] 0.5 mg(2 00 skin Medical mg/1.5 mL) weekly. Branch PnIj semaglutide 2020-09 Yes [id number] Inject Univers (OZEMPIC) 2-01 0.25 mg ity of 0.25 mg or 00:00: under the [place] 0.5 mg(2 00 skin Medical mg/1.5 mL) weekly. Branch PnIj semaglutide 2020-09 Yes [id number] Inject Univers (OZEMPIC) 2-01 0.25 mg ity of 0.25 mg or 00:00: under the [place] 0.5 mg(2 00 skin Medical mg/1.5 mL) weekly. Branch PnIj semaglutide 2020-09 Yes [id number] Inject Univers (OZEMPIC) 2-01 0.25 mg ity of 0.25 mg or 00:00: under the [place] 0.5 mg(2 00 skin Medical mg/1.5 mL) weekly. Branch PnIj semaglutide 2020-09 Yes [id number] Inject Univers (OZEMPIC) 2-01 0.25 mg ity of 0.25 mg or 00:00: under the [place] 0.5 mg(2 00 skin Medical mg/1.5 mL) weekly. Branch PnIj semaglutide 2020-09 Yes [id number] Inject Univers (OZEMPIC) 2-01 0.25 mg ity of 0.25 mg or 00:00: under the [place] 0.5 mg(2 00 skin Medical mg/1.5 mL) weekly. Branch PnIj semaglutide 2020-09 Yes [id number] Inject Univers (OZEMPIC) 2-01 0.25 mg ity of 0.25 mg or 00:00: under the [place] 0.5 mg(2 00 skin Medical mg/1.5 mL) weekly. Branch PnIj semaglutide 2020-09 Yes [id number] Inject Univers (OZEMPIC) 2-01 0.25 mg ity of 0.25 mg or 00:00: under the [place] 0.5 mg(2 00 skin Medical mg/1.5 mL) weekly. Branch PnIj semaglutide 2020-09 Yes [id number] Inject Univers (OZEMPIC) 10-27 0.25 mg ity of 0.25 mg or 00:00: under the [place] 0.5 mg(2 00 skin Medical mg/1.5 mL) weekly. Branch PnIj semaglutide 2020-09- No [id number] Inject Univers (OZEMPIC) 10-27 0.25 mg ity of 0.25 mg or 00:00: 00:00 under the [place] 0.5 mg(2 00 :00 skin Medical mg/1.5 mL) weekly. Branch PnIj metformin 2020-09- No [id number] 500mg Take 1 Univers ER 500 mg 10-27 tablet by ity of 24 hr 00:00: 00:00 mouth [place] tablet 00 :00 daily with Medical breakfast. Branch STOP REGULAR METFORMIN. metformin 2020-09- No [id number] 500mg Take 1 [facility] ER 500 mg 10-27 tablet by ity of 24 hr 00:00: 00:00 mouth [place] tablet 00 :00 daily with Medical breakfast. Branch STOP REGULAR METFORMIN. cyanocobala 2020-09 Yes [id number] 1000ug 1 mL by Univers min 1,000 1-09 Intramuscu ity of mcg/mL 00:00: lar route [place] injection 00 every 2 Medical (two) Branch weeks. levothyroxi 2020-09 Yes [id number] 50ug Take 1 Univers ne 50 mcg -09 tablet by ity o f tablet 00:00: mouth [place] 00 every Medical morning. Branch fluticasone 2020-09 Yes [id number] 2{puff} Inhale 2 Univers propionate 1-09 Puffs ity of (FLOVENT 00:00: every 12 [place] HFA) 110 00 (twelve) Medical mcg/actuati hours. Branch on inhaler Rinse mouth after each use. levalbutero 2020-09 Yes [id number] .63mg Inhale Univers l 0.63 mg/3 1-09 0.63 mg 3 ity of mL 00:00: (three) [place] nebulizer 00 times Medical solution daily as Branch needed for Wheezing or Shortness of Breath. losartan 50 2020-09 Yes [id number] 50mg Take 1 Univers mg tablet 1-09 tablet by ity o f 00:00: mouth 2 [place] 00 (two) Medical times Branch daily. clotrimazol 2020-09 Yes [id number] Apply to Univers e-betametha -09 area(s) 2 ity of sone cream 00:00: (two) [place] 00 times Medical daily. Branch cyclobenzap 2020-09 Yes [id number] TAKE 1 [facility] rine 5 mg -09 TABLET BY ity o f tablet 00:00: MOUTH [place] 00 EVERY 8 Medical HOURS Branch NEEDED econazole 2020-09 Yes [id number] Apply to Univers nitrate 1 % 09 area(s) 2 ity of cream 00:00: (two) [place] 00 times Medical daily. Branch albuterol 2020-09 Yes [id number] 2{puff} Inhale 2 Univers (PROAIR 1-09 Puffs ity of HFA) 90 00:00: every 6 [place] mcg/actuati 00 (six) Medical on inhaler hours as Branc h needed for Wheezing or Shortness of Breath. triamcinolo 2020-09 Yes [id number] Apply to Univers ne 0.025 % 10-04 area(s) 3 ity of ointment 00:00: (three) [place] 00 times Medical daily. For Branch itching diltiazem 2020-09 Yes [id number] 120mg Take 1 U nivers (CARTIA XT) -09 capsule by it y of 120 mg 24 00:00: mouth 2 [place] hr capsule 00 (two) Medical times Branch daily. cyanocobala 2020-09 Yes [id number] 1000ug 1 mL by Univers min 1,000 1-09 Intramuscu ity of mcg/mL 00:00: lar route [place] injection 00 every 2 Medical (two) Branch weeks. levothyroxi 2020-09 Yes [id number] 50ug Take 1 Univers ne 50 mcg 1-09 tablet by ity o f tablet 00:00: mouth [place] 00 every Medical morning. Branch fluticasone 2020-09 Yes [id number] 2{puff} Inhale 2 [facility] propionate 1-09 Puffs ity of (FLOVENT 00:00: every 12 [place] HFA) 110 00 (twelve) Medical mcg/actuati hours. Branch on inhaler Rinse mouth after each use. levalbutero 2020-09 Yes [id number] .63mg Inhale Univers l 0.63 mg/3 -09 0.63 mg 3 ity of mL 00:00: (three) [place] nebulizer 00 times Medical solution daily as Branch needed for Wheezing or Shortness of Breath. losartan 50 2020-09 Yes [id number] 50mg Take 1 Univers mg tablet 10-04 tablet by ity o f 00:00: mouth 2 [place] 00 (two) Medical times Branch daily. clotrimazol 2020-09 Yes [id number] Apply to Univers e-betametha 10-04 area(s) 2 ity of sone cream 00:00: (two) [place] 00 times Medical daily. Branch cyclobenzap 2020-09 Yes [id number] TAKE 1 [facility] rine 5 mg 10-04 TABLET BY ity o f tablet 00:00: MOUTH [place] 00 EVERY 8 Medical HOURS Branch NEEDED econazole 2020-09 Yes [id number] Apply to [facility] nitrate 1 % 10-04 area(s) 2 ity of cream 00:00: (two) [place] 00 times Medical daily. Branch albuterol 2020-09 Yes [id number] 2{puff} Inhale 2 [facility] (PROAIR -09 Puffs ity of HFA) 90 00:00: every 6 [place] mcg/actuati 00 (six) Medical on inhaler hours as Branc h needed for Wheezing or Shortness of Breath. triamcinolo 2020-09 Yes [id number] Apply to [facility] ne 0.025 % 10-04 area(s) 3 ity of ointment 00:00: (three) [place] 00 times Medical daily. For Branch itching diltiazem 2020-09 Yes [id number] 120mg Take 1 [facility] (CARTIA XT) 09 capsule by it y of 120 mg 24 00:00: mouth 2 [place] hr capsule 00 (two) Medical times Branch daily. cyanocobala 2020-09 Yes [id number] 1000ug 1 mL by [facility] min 1,000 10-04 Intramuscu ity of mcg/mL 00:00: lar route [place] injection 00 every 2 Medical (two) Branch weeks. levothyroxi 2020-09 Yes [id number] 50ug Take 1 [facility] ne 50 mcg 1-09 tablet by ity o f tablet 00:00: mouth [place] 00 every Medical morning. Branch fluticasone 2020-09 Yes [id number] 2{puff} Inhale 2 [facility] propionate 1-09 Puffs ity of (FLOVENT 00:00: every 12 [place] HFA) 110 00 (twelve) Medical mcg/actuati hours. Branch on inhaler Rinse mouth after each use. levalbutero 2020-09 Yes [id number] .63mg Inhale [facility] l 0.63 mg/3 1-09 0.63 mg 3 ity of mL 00:00: (three) [place] nebulizer 00 times Medical solution daily as Branch needed for Wheezing or Shortness of Breath. losartan 50 2020-09 Yes [id number] 50mg Take 1 [facility] mg tablet 1-09 tablet by ity o f 00:00: mouth 2 [place] 00 (two) Medical times Branch daily. clotrimazol 2020-09 Yes [id number] Apply to [facility] e-betametha -09 area(s) 2 ity of sone cream 00:00: (two) [place] 00 times Medical daily. Branch cyclobenzap 2020-09 Yes [id number] TAKE 1 [facility] rine 5 mg 1-09 TABLET BY ity o f tablet 00:00: MOUTH [place] 00 EVERY 8 Medical HOURS Branch NEEDED econazole 2020-09 Yes [id number] Apply to [facility] nitrate 1 % 09 area(s) 2 ity of cream 00:00: (two) [place] 00 times Medical daily. Branch albuterol 2020-09 Yes [id number] 2{puff} Inhale 2 [facility] (PROAIR 1-09 Puffs ity of HFA) 90 00:00: every 6 [place] mcg/actuati 00 (six) Medical on inhaler hours as Branc h needed for Wheezing or Shortness of Breath. triamcinolo 2020-09 Yes [id number] Apply to [facility] ne 0.025 % -09 area(s) 3 ity of ointment 00:00: (three) [place] 00 times Medical daily. For Branch itching diltiazem 2020-09 Yes [id number] 120mg Take 1 [facility] (CARTIA XT) -09 capsule by it y of 120 mg 24 00:00: mouth 2 [place] hr capsule 00 (two) Medical times Branch daily. cyanocobala 2020-09 Yes [id number] 1000ug 1 mL by [facility] min 1,000 1-09 Intramuscu ity of mcg/mL 00:00: lar route [place] injection 00 every 2 Medical (two) Branch weeks. levothyroxi 2020-09 Yes [id number] 50ug Take 1 [facility] ne 50 mcg 1-09 tablet by ity o f tablet 00:00: mouth [place] 00 every Medical morning. Branch fluticasone 2020-09 Yes [id number] 2{puff} Inhale 2 [facility] propionate 1-09 Puffs ity of (FLOVENT 00:00: every 12 [place] HFA) 110 00 (twelve) Medical mcg/actuati hours. Branch on inhaler Rinse mouth after each use. levalbutero 2020-09 Yes [id number] .63mg Inhale [facility] l 0.63 mg/3 1-09 0.63 mg 3 ity of mL 00:00: (three) [place] nebulizer 00 times Medical solution daily as Branch needed for Wheezing or Shortness of Breath. losartan 50 2020-09 Yes [id number] 50mg Take 1 [facility] mg tablet 1-09 tablet by ity o f 00:00: mouth 2 [place] 00 (two) Medical times Branch daily. clotrimazol 2020-09 Yes [id number] Apply to [facility] e-betametha 1-09 area(s) 2 ity of sone cream 00:00: (two) [place] 00 times Medical daily. Branch cyclobenzap 2020-09 Yes [id number] TAKE 1 [facility] rine 5 mg 1-09 TABLET BY ity o f tablet 00:00: MOUTH [place] 00 EVERY 8 Medical HOURS Branch NEEDED econazole 2020-09 Yes [id number] Apply to [facility] nitrate 1 % 1-09 area(s) 2 ity of cream 00:00: (two) [place] 00 times Medical daily. Branch albuterol 2020-09 Yes [id number] 2{puff} Inhale 2 [facility] (PROAIR 1-09 Puffs ity of HFA) 90 00:00: every 6 [place] mcg/actuati 00 (six) Medical on inhaler hours as Branc h needed for Wheezing or Shortness of Breath. triamcinolo 2020-09 Yes [id number] Apply to [facility] ne 0.025 % 1-09 area(s) 3 ity of ointment 00:00: (three) [place] 00 times Medical daily. For Branch itching diltiazem 2020-09 Yes [id number] 120mg Take 1 [facility] (CARTIA XT) 1-09 capsule by it y of 120 mg 24 00:00: mouth 2 [place] hr capsule 00 (two) Medical times Branch daily. cyanocobala 2020-09 Yes [id number] 1000ug 1 mL by [facility] min 1,000 -09 Intramuscu ity of mcg/mL 00:00: lar route [place] injection 00 every 2 Medical (two) Branch weeks. levothyroxi 2020-09 Yes [id number] 50ug Take 1 [facility] ne 50 mcg -09 tablet by ity o f tablet 00:00: mouth [place] 00 every Medical morning. Branch fluticasone 2020-09 Yes [id number] 2{puff} Inhale 2 [facility] propionate 1-09 Puffs ity of (FLOVENT 00:00: every 12 [place] HFA) 110 00 (twelve) Medical mcg/actuati hours. Branch on inhaler Rinse mouth after each use. levalbutero 2020-09 Yes [id number] .63mg Inhale [facility] l 0.63 mg/3 1-09 0.63 mg 3 ity of mL 00:00: (three) [place] nebulizer 00 times Medical solution daily as Branch needed for Wheezing or Shortness of Breath. clotrimazol 2020-09 Yes [id number] Apply to [facility] e-betametha 10-04 area(s) 2 ity of sone cream 00:00: (two) [place] 00 times Medical daily. Branch cyclobenzap 2020-09 Yes [id number] TAKE 1 [facility] rine 5 mg -09 TABLET BY ity o f tablet 00:00: MOUTH [place] 00 EVERY 8 Medical HOURS Branch NEEDED econazole 2020-09 Yes [id number] Apply to [facility] nitrate 1 % 09 area(s) 2 ity of cream 00:00: (two) [place] 00 times Medical daily. Branch albuterol 2020-09 Yes [id number] 2{puff} Inhale 2 [facility] (PROAIR 1-09 Puffs ity of HFA) 90 00:00: every 6 [place] mcg/actuati 00 (six) Medical on inhaler hours as Branc h needed for Wheezing or Shortness of Breath. triamcinolo 2020-09 Yes [id number] Apply to [facility] ne 0.025 % 1-09 area(s) 3 ity of ointment 00:00: (three) [place] 00 times Medical daily. For Branch itching cyanocobala 2020-09 Yes [id number] 1000ug 1 mL by [facility] min 1,000 1-09 Intramuscu ity of mcg/mL 00:00: lar route [place] injection 00 every 2 Medical (two) Branch weeks. levothyroxi 2020-09 Yes [id number] 50ug Take 1 [facility] ne 50 mcg 1-09 tablet by ity o f tablet 00:00: mouth [place] 00 every Medical morning. Branch fluticasone 2020-09 Yes [id number] 2{puff} Inhale 2 [facility] propionate -09 Puffs ity of (FLOVENT 00:00: every 12 [place] HFA) 110 00 (twelve) Medical mcg/actuati hours. Branch on inhaler Rinse mouth after each use. levalbutero 2020-09 Yes [id number] .63mg Inhale [facility] l 0.63 mg/3 -09 0.63 mg 3 ity of mL 00:00: (three) [place] nebulizer 00 times Medical solution daily as Branch needed for Wheezing or Shortness of Breath. clotrimazol 2020-09 Yes [id number] Apply to [facility] e-betametha 10-04 area(s) 2 ity of sone cream 00:00: (two) [place] 00 times Medical daily. Branch cyclobenzap 2020-09 Yes [id number] TAKE 1 [facility] rine 5 mg -09 TABLET BY ity o f tablet 00:00: MOUTH [place] 00 EVERY 8 Medical HOURS Branch NEEDED econazole 2020-09 Yes [id number] Apply to [facility] nitrate 1 % -09 area(s) 2 ity of cream 00:00: (two) [place] 00 times Medical daily. Branch albuterol 2020-09 Yes [id number] 2{puff} Inhale 2 [facility] (PROAIR 1-09 Puffs ity of HFA) 90 00:00: every 6 [place] mcg/actuati 00 (six) Medical on inhaler hours as Branc h needed for Wheezing or Shortness of Breath. triamcinolo 2020-09 Yes [id number] Apply to [facility] ne 0.025 % -09 area(s) 3 ity of ointment 00:00: (three) [place] 00 times Medical daily. For Branch itching cyanocobala 2020-09 Yes [id number] 1000ug 1 mL by [facility] min 1,000 -09 Intramuscu ity of mcg/mL 00:00: lar route [place] injection 00 every 2 Medical (two) Branch weeks. levothyroxi 2020-09 Yes [id number] 50ug Take 1 [facility] ne 50 mcg 1-09 tablet by ity o f tablet 00:00: mouth [place] 00 every Medical morning. Branch fluticasone 2020-09 Yes [id number] 2{puff} Inhale 2 [facility] propionate 1-09 Puffs ity of (FLOVENT 00:00: every 12 [place] HFA) 110 00 (twelve) Medical mcg/actuati hours. Branch on inhaler Rinse mouth after each use. levalbutero 2020-09 Yes [id number] .63mg Inhale [facility] l 0.63 mg/3 -09 0.63 mg 3 ity of mL 00:00: (three) [place] nebulizer 00 times Medical solution daily as Branch needed for Wheezing or Shortness of Breath. clotrimazol 2020-09 Yes [id number] Apply to [facility] e-betametha 10-04 area(s) 2 ity of sone cream 00:00: (two) [place] 00 times Medical daily. Branch cyclobenzap 2020-09 Yes [id number] TAKE 1 [facility] rine 5 mg -09 TABLET BY ity o f tablet 00:00: MOUTH [place] 00 EVERY 8 Medical HOURS Branch NEEDED econazole 2020-09 Yes [id number] Apply to [facility] nitrate 1 % -09 area(s) 2 ity of cream 00:00: (two) [place] 00 times Medical daily. Branch albuterol 2020-09 Yes [id number] 2{puff} Inhale 2 [facility] (PROAIR 1-09 Puffs ity of HFA) 90 00:00: every 6 [place] mcg/actuati 00 (six) Medical on inhaler hours as Branc h needed for Wheezing or Shortness of Breath. triamcinolo 2020-09 Yes [id number] Apply to [facility] ne 0.025 % 1-09 area(s) 3 ity of ointment 00:00: (three) [place] 00 times Medical daily. For Branch itching cyanocobala 2020-09 Yes [id number] 1000ug 1 mL by [facility] min 1,000 1-09 Intramuscu ity of mcg/mL 00:00: lar route [place] injection 00 every 2 Medical (two) Branch weeks. levothyroxi 2020-09 Yes [id number] 50ug Take 1 [facility] ne 50 mcg 1-09 tablet by ity o f tablet 00:00: mouth [place] 00 every Medical morning. Branch fluticasone 2020-09 Yes [id number] 2{puff} Inhale 2 [facility] propionate 1-09 Puffs ity of (FLOVENT 00:00: every 12 [place] HFA) 110 00 (twelve) Medical mcg/actuati hours. Branch on inhaler Rinse mouth after each use. levalbutero 2020-09 Yes [id number] .63mg Inhale [facility] l 0.63 mg/3 1-09 0.63 mg 3 ity of mL 00:00: (three) [place] nebulizer 00 times Medical solution daily as Branch needed for Wheezing or Shortness of Breath. clotrimazol 2020-09 Yes [id number] Apply to [facility] e-betametha 1-09 area(s) 2 ity of sone cream 00:00: (two) [place] 00 times Medical daily. Branch cyclobenzap 2020-09 Yes [id number] TAKE 1 [facility] rine 5 mg -09 TABLET BY ity o f tablet 00:00: MOUTH [place] 00 EVERY 8 Medical HOURS Branch NEEDED econazole 2020-09 Yes [id number] Apply to [facility] nitrate 1 % -09 area(s) 2 ity of cream 00:00: (two) [place] 00 times Medical daily. Branch albuterol 2020-09 Yes [id number] 2{puff} Inhale 2 [facility] (PROAIR 1-09 Puffs ity of HFA) 90 00:00: every 6 [place] mcg/actuati 00 (six) Medical on inhaler hours as Branc h needed for Wheezing or Shortness of Breath. triamcinolo 2020-09 Yes [id number] Apply to [facility] ne 0.025 % 1-09 area(s) 3 ity of ointment 00:00: (three) [place] 00 times Medical daily. For Branch itching cyanocobala 2020-09 Yes [id number] 1000ug 1 mL by [facility] min 1,000 1-09 Intramuscu ity of mcg/mL 00:00: lar route [place] injection 00 every 2 Medical (two) Branch weeks. levothyroxi 2020-09 Yes [id number] 50ug Take 1 [facility] ne 50 mcg 1-09 tablet by ity o f tablet 00:00: mouth [place] 00 every Medical morning. Branch fluticasone 2020-09 Yes [id number] 2{puff} Inhale 2 [facility] propionate 1-09 Puffs ity of (FLOVENT 00:00: every 12 [place] HFA) 110 00 (twelve) Medical mcg/actuati hours. Branch on inhaler Rinse mouth after each use. levalbutero 2020-09 Yes [id number] .63mg Inhale [facility] l 0.63 mg/3 1-09 0.63 mg 3 ity of mL 00:00: (three) [place] nebulizer 00 times Medical solution daily as Branch needed for Wheezing or Shortness of Breath. clotrimazol 2020-09 Yes [id number] Apply to [facility] e-betametha -09 area(s) 2 ity of sone cream 00:00: (two) [place] 00 times Medical daily. Branch cyclobenzap 2020-09 Yes [id number] TAKE 1 [facility] rine 5 mg -09 TABLET BY ity o f tablet 00:00: MOUTH [place] 00 EVERY 8 Medical HOURS Branch NEEDED econazole 2020-09 Yes [id number] Apply to [facility] nitrate 1 % -09 area(s) 2 ity of cream 00:00: (two) [place] 00 times Medical daily. Branch albuterol 2020-09 Yes [id number] 2{puff} Inhale 2 [facility] (PROAIR 1-09 Puffs ity of HFA) 90 00:00: every 6 [place] mcg/actuati 00 (six) Medical on inhaler hours as Branc h needed for Wheezing or Shortness of Breath. triamcinolo 2020-09 Yes [id number] Apply to [facility] ne 0.025 % 1-09 area(s) 3 ity of ointment 00:00: (three) [place] 00 times Medical daily. For Branch itching cyanocobala 2020-09 Yes [id number] 1000ug 1 mL by [facility] min 1,000 1-09 Intramuscu ity of mcg/mL 00:00: lar route [place] injection 00 every 2 Medical (two) Branch weeks. levothyroxi 2020-09 Yes [id number] 50ug Take 1 [facility] ne 50 mcg 1-09 tablet by ity o f tablet 00:00: mouth [place] 00 every Medical morning. Branch fluticasone 2020-09 Yes [id number] 2{puff} Inhale 2 [facility] propionate 1-09 Puffs ity of (FLOVENT 00:00: every 12 [place] HFA) 110 00 (twelve) Medical mcg/actuati hours. Branch on inhaler Rinse mouth after each use. levalbutero 2020-09 Yes [id number] .63mg Inhale [facility] l 0.63 mg/3 1-09 0.63 mg 3 ity of mL 00:00: (three) [place] nebulizer 00 times Medical solution daily as Branch needed for Wheezing or Shortness of Breath. clotrimazol 2020-09 Yes [id number] Apply to [facility] e-betametha 1-09 area(s) 2 ity of sone cream 00:00: (two) [place] 00 times Medical daily. Branch cyclobenzap 2020-09 Yes [id number] TAKE 1 [facility] rine 5 mg 1-09 TABLET BY ity o f tablet 00:00: MOUTH [place] 00 EVERY 8 Medical HOURS Branch NEEDED econazole 2020-09 Yes [id number] Apply to [facility] nitrate 1 % -09 area(s) 2 ity of cream 00:00: (two) [place] 00 times Medical daily. Branch albuterol 2020-09 Yes [id number] 2{puff} Inhale 2 [facility] (PROAIR 1-09 Puffs ity of HFA) 90 00:00: every 6 [place] mcg/actuati 00 (six) Medical on inhaler hours as Branc h needed for Wheezing or Shortness of Breath. triamcinolo 2020-09 Yes [id number] Apply to [facility] ne 0.025 % 1-09 area(s) 3 ity of ointment 00:00: (three) [place] 00 times Medical daily. For Branch itching cyanocobala 2020-09 Yes [id number] 1000ug 1 mL by [facility] min 1,000 1-09 Intramuscu ity of mcg/mL 00:00: lar route [place] injection 00 every 2 Medical (two) Branch weeks. levothyroxi 2020-09 Yes [id number] 50ug Take 1 [facility] ne 50 mcg 1-09 tablet by ity o f tablet 00:00: mouth [place] 00 every Medical morning. Branch fluticasone 2020-09 Yes [id number] 2{puff} Inhale 2 [facility] propionate 1-09 Puffs ity of (FLOVENT 00:00: every 12 [place] HFA) 110 00 (twelve) Medical mcg/actuati hours. Branch on inhaler Rinse mouth after each use. levalbutero 2020-09 Yes [id number] .63mg Inhale [facility] l 0.63 mg/3 1-09 0.63 mg 3 ity of mL 00:00: (three) [place] nebulizer 00 times Medical solution daily as Branch needed for Wheezing or Shortness of Breath. clotrimazol 2020-09 Yes [id number] Apply to [facility] e-betametha 1-09 area(s) 2 ity of sone cream 00:00: (two) [place] 00 times Medical daily. Branch cyclobenzap 2020-09 Yes [id number] TAKE 1 [facility] rine 5 mg 1-09 TABLET BY ity o f tablet 00:00: MOUTH [place] 00 EVERY 8 Medical HOURS Branch NEEDED econazole 2020-09 Yes [id number] Apply to [facility] nitrate 1 % 1-09 area(s) 2 ity of cream 00:00: (two) [place] 00 times Medical daily. Branch albuterol 2020-09 Yes [id number] 2{puff} Inhale 2 [facility] (PROAIR 1-09 Puffs ity of HFA) 90 00:00: every 6 [place] mcg/actuati 00 (six) Medical on inhaler hours as Branc h needed for Wheezing or Shortness of Breath. triamcinolo 2020-09 Yes [id number] Apply to [facility] ne 0.025 % 1-09 area(s) 3 ity of ointment 00:00: (three) [place] 00 times Medical daily. For Branch itching cyanocobala 2020-09 Yes [id number] 1000ug 1 mL by [facility] min 1,000 1-09 Intramuscu ity of mcg/mL 00:00: lar route [place] injection 00 every 2 Medical (two) Branch weeks. levothyroxi 2020-09 Yes [id number] 50ug Take 1 [facility] ne 50 mcg 1-09 tablet by ity o f tablet 00:00: mouth [place] 00 every Medical morning. Branch fluticasone 2020-09 Yes [id number] 2{puff} Inhale 2 [facility] propionate 1-09 Puffs ity of (FLOVENT 00:00: every 12 [place] HFA) 110 00 (twelve) Medical mcg/actuati hours. Branch on inhaler Rinse mouth after each use. levalbutero 2020-09 Yes [id number] .63mg Inhale [facility] l 0.63 mg/3 1-09 0.63 mg 3 ity of mL 00:00: (three) [place] nebulizer 00 times Medical solution daily as Branch needed for Wheezing or Shortness of Breath. clotrimazol 2020-09 Yes [id number] Apply to [facility] e-betametha -09 area(s) 2 ity of sone cream 00:00: (two) [place] 00 times Medical daily. Branch cyclobenzap 2020-09 Yes [id number] TAKE 1 [facility] rine 5 mg -09 TABLET BY ity o f tablet 00:00: MOUTH [place] 00 EVERY 8 Medical HOURS Branch NEEDED econazole 2020-09 Yes [id number] Apply to [facility] nitrate 1 % -09 area(s) 2 ity of cream 00:00: (two) [place] 00 times Medical daily. Branch albuterol 2020-09 Yes [id number] 2{puff} Inhale 2 [facility] (PROAIR 1-09 Puffs ity of HFA) 90 00:00: every 6 [place] mcg/actuati 00 (six) Medical on inhaler hours as Branc h needed for Wheezing or Shortness of Breath. triamcinolo 2020-09 Yes [id number] Apply to [facility] ne 0.025 % 1-09 area(s) 3 ity of ointment 00:00: (three) [place] 00 times Medical daily. For Branch itching cyanocobala 2020-09 Yes [id number] 1000ug 1 mL by [facility] min 1,000 1-09 Intramuscu ity of mcg/mL 00:00: lar route [place] injection 00 every 2 Medical (two) Branch weeks. levothyroxi 2020-09 Yes [id number] 50ug Take 1 [facility] ne 50 mcg 1-09 tablet by ity o f tablet 00:00: mouth [place] 00 every Medical morning. Branch fluticasone 2020-09 Yes [id number] 2{puff} Inhale 2 [facility] propionate 1-09 Puffs ity of (FLOVENT 00:00: every 12 [place] HFA) 110 00 (twelve) Medical mcg/actuati hours. Branch on inhaler Rinse mouth after each use. levalbutero 2020-09 Yes [id number] .63mg Inhale [facility] l 0.63 mg/3 1-09 0.63 mg 3 ity of mL 00:00: (three) [place] nebulizer 00 times Medical solution daily as Branch needed for Wheezing or Shortness of Breath. clotrimazol 2020-09 Yes [id number] Apply to [facility] e-betametha 1-09 area(s) 2 ity of sone cream 00:00: (two) [place] 00 times Medical daily. Branch cyclobenzap 2020-09 Yes [id number] TAKE 1 [facility] rine 5 mg 1-09 TABLET BY ity o f tablet 00:00: MOUTH [place] 00 EVERY 8 Medical HOURS Branch NEEDED econazole 2020-09 Yes [id number] Apply to [facility] nitrate 1 % -09 area(s) 2 ity of cream 00:00: (two) [place] 00 times Medical daily. Branch albuterol 2020-09 Yes [id number] 2{puff} Inhale 2 [facility] (PROAIR 1-09 Puffs ity of HFA) 90 00:00: every 6 [place] mcg/actuati 00 (six) Medical on inhaler hours as Branc h needed for Wheezing or Shortness of Breath. triamcinolo 2020-09 Yes [id number] Apply to [facility] ne 0.025 % 1-09 area(s) 3 ity of ointment 00:00: (three) [place] 00 times Medical daily. For Branch itching cyanocobala 2020-09 Yes [id number] 1000ug 1 mL by [facility] min 1,000 1-09 Intramuscu ity of mcg/mL 00:00: lar route [place] injection 00 every 2 Medical (two) Branch weeks. levothyroxi 2020-09 Yes [id number] 50ug Take 1 [facility] ne 50 mcg 1-09 tablet by ity o f tablet 00:00: mouth [place] 00 every Medical morning. Branch fluticasone 2020-09 Yes [id number] 2{puff} Inhale 2 [facility] propionate 1-09 Puffs ity of (FLOVENT 00:00: every 12 [place] HFA) 110 00 (twelve) Medical mcg/actuati hours. Branch on inhaler Rinse mouth after each use. levalbutero 2020-09 Yes [id number] .63mg Inhale [facility] l 0.63 mg/3 1-09 0.63 mg 3 ity of mL 00:00: (three) [place] nebulizer 00 times Medical solution daily as Branch needed for Wheezing or Shortness of Breath. clotrimazol 2020-09 Yes [id number] Apply to [facility] e-betametha 1-09 area(s) 2 ity of sone cream 00:00: (two) [place] 00 times Medical daily. Branch cyclobenzap 2020-09 Yes [id number] TAKE 1 [facility] rine 5 mg 1-09 TABLET BY ity o f tablet 00:00: MOUTH [place] 00 EVERY 8 Medical HOURS Branch NEEDED econazole 2020-09 Yes [id number] Apply to [facility] nitrate 1 % -09 area(s) 2 ity of cream 00:00: (two) [place] 00 times Medical daily. Branch albuterol 2020-09 Yes [id number] 2{puff} Inhale 2 [facility] (PROAIR 1-09 Puffs ity of HFA) 90 00:00: every 6 [place] mcg/actuati 00 (six) Medical on inhaler hours as Branc h needed for Wheezing or Shortness of Breath. triamcinolo 2020-09 Yes [id number] Apply to [facility] ne 0.025 % 1-09 area(s) 3 ity of ointment 00:00: (three) [place] 00 times Medical daily. For Branch itching cyanocobala 2020-09 Yes [id number] 1000ug 1 mL by [facility] min 1,000 1-09 Intramuscu ity of mcg/mL 00:00: lar route [place] injection 00 every 2 Medical (two) Branch weeks. levothyroxi 2020-09 Yes [id number] 50ug Take 1 [facility] ne 50 mcg 1-09 tablet by ity o f tablet 00:00: mouth [place] 00 every Medical morning. Branch fluticasone 2020-09 Yes [id number] 2{puff} Inhale 2 [facility] propionate 1-09 Puffs ity of (FLOVENT 00:00: every 12 [place] HFA) 110 00 (twelve) Medical mcg/actuati hours. Branch on inhaler Rinse mouth after each use. levalbutero 2020-09 Yes [id number] .63mg Inhale [facility] l 0.63 mg/3 1-09 0.63 mg 3 ity of mL 00:00: (three) [place] nebulizer 00 times Medical solution daily as Branch needed for Wheezing or Shortness of Breath. clotrimazol 2020-09 Yes [id number] Apply to [facility] e-betametha -09 area(s) 2 ity of sone cream 00:00: (two) [place] 00 times Medical daily. Branch cyclobenzap 2020-09 Yes [id number] TAKE 1 [facility] rine 5 mg -09 TABLET BY ity o f tablet 00:00: MOUTH [place] 00 EVERY 8 Medical HOURS Branch NEEDED econazole 2020-09 Yes [id number] Apply to [facility] nitrate 1 % 10-04 area(s) 2 ity of cream 00:00: (two) [place] 00 times Medical daily. Branch albuterol 2020-09 Yes [id number] 2{puff} Inhale 2 [facility] (PROAIR 1-09 Puffs ity of HFA) 90 00:00: every 6 [place] mcg/actuati 00 (six) Medical on inhaler hours as Branc h needed for Wheezing or Shortness of Breath. triamcinolo 2020-09 Yes [id number] Apply to [facility] ne 0.025 % 10-04 area(s) 3 ity of ointment 00:00: (three) [place] 00 times Medical daily. For Branch itching cyanocobala 2020-09 Yes [id number] 1000ug 1 mL by [facility] min 1,000 1-09 Intramuscu ity of mcg/mL 00:00: lar route [place] injection 00 every 2 Medical (two) Branch weeks. levothyroxi 2020-09 Yes [id number] 50ug Take 1 [facility] ne 50 mcg 1-09 tablet by ity o f tablet 00:00: mouth [place] 00 every Medical morning. Branch fluticasone 2020-09 Yes [id number] 2{puff} Inhale 2 [facility] propionate 1-09 Puffs ity of (FLOVENT 00:00: every 12 [place] HFA) 110 00 (twelve) Medical mcg/actuati hours. Branch on inhaler Rinse mouth after each use. levalbutero 2020-09 Yes [id number] .63mg Inhale [facility] l 0.63 mg/3 1-09 0.63 mg 3 ity of mL 00:00: (three) [place] nebulizer 00 times Medical solution daily as Branch needed for Wheezing or Shortness of Breath. clotrimazol 2020-09 Yes [id number] Apply to [facility] e-betametha 09 area(s) 2 ity of sone cream 00:00: (two) [place] 00 times Medical daily. Branch cyclobenzap 2020-09 Yes [id number] TAKE 1 [facility] rine 5 mg 09 TABLET BY ity o f tablet 00:00: MOUTH [place] 00 EVERY 8 Medical HOURS Branch NEEDED econazole 2020-09 Yes [id number] Apply to [facility] nitrate 1 % 10-04 area(s) 2 ity of cream 00:00: (two) [place] 00 times Medical daily. Branch albuterol 2020-09 Yes [id number] 2{puff} Inhale 2 [facility] (PROAIR 1-09 Puffs ity of HFA) 90 00:00: every 6 [place] mcg/actuati 00 (six) Medical on inhaler hours as Branc h needed for Wheezing or Shortness of Breath. triamcinolo 2020-09 Yes [id number] Apply to [facility] ne 0.025 % 10-04 area(s) 3 ity of ointment 00:00: (three) [place] 00 times Medical daily. For Branch itching cyanocobala 2020-09 Yes [id number] 1000ug 1 mL by [facility] min 1,000 -09 Intramuscu ity of mcg/mL 00:00: lar route [place] injection 00 every 2 Medical (two) Branch weeks. levothyroxi 2020-09 Yes [id number] 50ug Take 1 [facility] ne 50 mcg 1-09 tablet by ity o f tablet 00:00: mouth [place] 00 every Medical morning. Branch fluticasone 2020-09 Yes [id number] 2{puff} Inhale 2 [facility] propionate 1-09 Puffs ity of (FLOVENT 00:00: every 12 [place] HFA) 110 00 (twelve) Medical mcg/actuati hours. Branch on inhaler Rinse mouth after each use. levalbutero 2020-09 Yes [id number] .63mg Inhale [facility] l 0.63 mg/3 1-09 0.63 mg 3 ity of mL 00:00: (three) [place] nebulizer 00 times Medical solution daily as Branch needed for Wheezing or Shortness of Breath. clotrimazol 2020-09 Yes [id number] Apply to [facility] e-betametha -09 area(s) 2 ity of sone cream 00:00: (two) [place] 00 times Medical daily. Branch cyclobenzap 2020-09 Yes [id number] TAKE 1 [facility] rine 5 mg -09 TABLET BY ity o f tablet 00:00: MOUTH [place] 00 EVERY 8 Medical HOURS Branch NEEDED econazole 2020-09 Yes [id number] Apply to [facility] nitrate 1 % 10-04 area(s) 2 ity of cream 00:00: (two) [place] 00 times Medical daily. Branch albuterol 2020-09 Yes [id number] 2{puff} Inhale 2 [facility] (PROAIR 1-09 Puffs ity of HFA) 90 00:00: every 6 [place] mcg/actuati 00 (six) Medical on inhaler hours as Branc h needed for Wheezing or Shortness of Breath. triamcinolo 2020-09 Yes [id number] Apply to [facility] ne 0.025 % 10-04 area(s) 3 ity of ointment 00:00: (three) [place] 00 times Medical daily. For Branch itching cyanocobala 2020-09 Yes [id number] 1000ug 1 mL by [facility] min 1,000 -09 Intramuscu ity of mcg/mL 00:00: lar route [place] injection 00 every 2 Medical (two) Branch weeks. levothyroxi 2020-09 Yes [id number] 50ug Take 1 [facility] ne 50 mcg -09 tablet by ity o f tablet 00:00: mouth [place] 00 every Medical morning. Branch fluticasone 2020-09 Yes [id number] 2{puff} Inhale 2 [facility] propionate 1-09 Puffs ity of (FLOVENT 00:00: every 12 [place] HFA) 110 00 (twelve) Medical mcg/actuati hours. Branch on inhaler Rinse mouth after each use. levalbutero 2020-09 Yes [id number] .63mg Inhale [facility] l 0.63 mg/3 1-09 0.63 mg 3 ity of mL 00:00: (three) [place] nebulizer 00 times Medical solution daily as Branch needed for Wheezing or Shortness of Breath. clotrimazol 2020-09 Yes [id number] Apply to [facility] e-betametha -09 area(s) 2 [facility] of sone cream 00:00: (two) [place] 00 times Medical daily. Branch cyclobenzap 2020-09 Yes [id number] TAKE 1 [facility] rine 5 mg 1-09 TABLET BY ity o f tablet 00:00: MOUTH [place] 00 EVERY 8 Medical HOURS Branch NEEDED econazole 2020-09 Yes [id number] Apply to [facility] nitrate 1 % -09 area(s) 2 ity of cream 00:00: (two) [place] 00 times Medical daily. Branch albuterol 2020-09 Yes [id number] 2{puff} Inhale 2 [facility] (PROAIR 1-09 Puffs ity of HFA) 90 00:00: every 6 [place] mcg/actuati 00 (six) Medical on inhaler hours as Branc h needed for Wheezing or Shortness of Breath. triamcinolo 2020-09 Yes [id number] Apply to [facility] ne 0.025 % 09 area(s) 3 it[facility] of ointment 00:00: (three) [place] 00 times Medical daily. For Branch itching cyanocobala 2020-09 Yes [id number] 1000ug 1 mL by [facility] min 1,000 1-09 Intramuscu ity of mcg/mL 00:00: lar route [place] injection 00 every 2 Medical (two) Branch weeks. levothyroxi 2020-09 Yes [id number] 50ug Take 1 [facility] ne 50 mcg 1-09 tablet by ity o f tablet 00:00: mouth [place] 00 every Medical morning. Branch fluticasone 2020-09 Yes [id number] 2{puff} Inhale 2 [facility] propionate 1-09 Puffs ity of (FLOVENT 00:00: every 12 [place] HFA) 110 00 (twelve) Medical mcg/actuati hours. Branch on inhaler Rinse mouth after each use. levalbutero 2020-09 Yes [id number] .63mg Inhale [facility] l 0.63 mg/3 1-09 0.63 mg 3 ity of mL 00:00: (three) [place] nebulizer 00 times Medical solution daily as Branch needed for Wheezing or Shortness of Breath. clotrimazol 2020-09 Yes [id number] Apply to [facility] e-betametha -09 area(s) 2 ity of sone cream 00:00: (two) [place] 00 times Medical daily. Branch cyclobenzap 2020-09 Yes [id number] TAKE 1 [facility] rine 5 mg 1-09 TABLET BY ity o f tablet 00:00: MOUTH [place] 00 EVERY 8 Medical HOURS Branch NEEDED econazole 2020-09 Yes [id number] Apply to [facility] nitrate 1 % 09 area(s) 2 ity of cream 00:00: (two) [place] 00 times Medical daily. Branch albuterol 2020-09 Yes [id number] 2{puff} Inhale 2 [facility] (PROAIR 1-09 Puffs ity of HFA) 90 00:00: every 6 [place] mcg/actuati 00 (six) Medical on inhaler hours as Branc h needed for Wheezing or Shortness of Breath. triamcinolo 2020-09 Yes [id number] Apply to [facility] ne 0.025 % 10-04 area(s) 3 ity of ointment 00:00: (three) [place] 00 times Medical daily. For Branch itching cyanocobala 2020-09 Yes [id number] 1000ug 1 mL by [facility] min 1,000 1-09 Intramuscu ity of mcg/mL 00:00: lar route [place] injection 00 every 2 Medical (two) Branch weeks. levothyroxi 2020-09 Yes [id number] 50ug Take 1 [facility] ne 50 mcg 09 tablet by ity o f tablet 00:00: mouth [place] 00 every Medical morning. Branch fluticasone 2020-09 Yes [id number] 2{puff} Inhale 2 [facility] propionate 1-09 Puffs ity of (FLOVENT 00:00: every 12 [place] HFA) 110 00 (twelve) Medical mcg/actuati hours. Branch on inhaler Rinse mouth after each use. levalbutero 2020-09 Yes [id number] .63mg Inhale [facility] l 0.63 mg/3 1-09 0.63 mg 3 ity of mL 00:00: (three) [place] nebulizer 00 times Medical solution daily as Branch needed for Wheezing or Shortness of Breath. clotrimazol 2020-09 Yes [id number] Apply to [facility] e-betametha -09 area(s) 2 ity of sone cream 00:00: (two) [place] 00 times Medical daily. Branch cyclobenzap 2020-09 Yes [id number] TAKE 1 [facility] rine 5 mg -09 TABLET BY ity o f tablet 00:00: MOUTH [place] 00 EVERY 8 Medical HOURS Branch NEEDED econazole 2020-09 Yes [id number] Apply to [facility] nitrate 1 % -09 area(s) 2 ity of cream 00:00: (two) [place] 00 times Medical daily. Branch albuterol 2020-09 Yes [id number] 2{puff} Inhale 2 [facility] (PROAIR 1-09 Puffs ity of HFA) 90 00:00: every 6 [place] mcg/actuati 00 (six) Medical on inhaler hours as Branc h needed for Wheezing or Shortness of Breath. triamcinolo 2020-09 Yes [id number] Apply to [facility] ne 0.025 % 09 area(s) 3 ity of ointment 00:00: (three) [place] 00 times Medical daily. For Branch itching cyanocobala 2020-09 Yes [id number] 1000ug 1 mL by [facility] min 1,000 1-09 Intramuscu ity of mcg/mL 00:00: lar route [place] injection 00 every 2 Medical (two) Branch weeks. levothyroxi 2020-09 Yes [id number] 50ug Take 1 [facility] ne 50 mcg -09 tablet by ity o f tablet 00:00: mouth [place] 00 every Medical morning. Branch fluticasone 2020-09 Yes [id number] 2{puff} Inhale 2 [facility] propionate 1-09 Puffs ity of (FLOVENT 00:00: every 12 [place] HFA) 110 00 (twelve) Medical mcg/actuati hours. Branch on inhaler Rinse mouth after each use. levalbutero 2020-09 Yes [id number] .63mg Inhale [facility] l 0.63 mg/3 1-09 0.63 mg 3 ity of mL 00:00: (three) [place] nebulizer 00 times Medical solution daily as Branch needed for Wheezing or Shortness of Breath. clotrimazol 2020-09 Yes [id number] Apply to [facility] e-betametha - area(s) 2 ity of sone cream 00:00: (two) [place] 00 times Medical daily. Branch cyclobenzap 2020-09 Yes [id number] TAKE 1 [facility] rine 5 mg 1-09 TABLET BY ity o f tablet 00:00: MOUTH [place] 00 EVERY 8 Medical HOURS Branch NEEDED econazole 2020-09 Yes [id number] Apply to [facility] nitrate 1 % -09 area(s) 2 ity of cream 00:00: (two) [place] 00 times Medical daily. Branch albuterol 2020-09 Yes [id number] 2{puff} Inhale 2 [facility] (PROAIR 1-09 Puffs ity of HFA) 90 00:00: every 6 [place] mcg/actuati 00 (six) Medical on inhaler hours as Branc h needed for Wheezing or Shortness of Breath. triamcinolo 2020-09 Yes [id number] Apply to [facility] ne 0.025 % 10-04 area(s) 3 ity of ointment 00:00: (three) [place] 00 times Medical daily. For Branch itching cyanocobala 2020-09 Yes [id number] 1000ug 1 mL by [facility] min 1,000 1-09 Intramuscu ity of mcg/mL 00:00: lar route [place] injection 00 every 2 Medical (two) Branch weeks. levothyroxi 2020-09 Yes [id number] 50ug Take 1 [facility] ne 50 mcg -09 tablet by ity o f tablet 00:00: mouth [place] 00 every Medical morning. Branch fluticasone 2020-09 Yes [id number] 2{puff} Inhale 2 [facility] propionate 1-09 Puffs ity of (FLOVENT 00:00: every 12 [place] HFA) 110 00 (twelve) Medical mcg/actuati hours. Branch on inhaler Rinse mouth after each use. levalbutero 2020-09 Yes [id number] .63mg Inhale [facility] l 0.63 mg/3 1-09 0.63 mg 3 ity of mL 00:00: (three) [place] nebulizer 00 times Medical solution daily as Branch needed for Wheezing or Shortness of Breath. clotrimazol 2020-09 Yes [id number] Apply to [facility] e-betametha -09 area(s) 2 ity of sone cream 00:00: (two) [place] 00 times Medical daily. Branch cyclobenzap 2020-09 Yes [id number] TAKE 1 [facility] rine 5 mg 1-09 TABLET BY ity o f tablet 00:00: MOUTH [place] 00 EVERY 8 Medical HOURS Branch NEEDED econazole 2020-09 Yes [id number] Apply to [facility] nitrate 1 % -09 area(s) 2 ity of cream 00:00: (two) [place] 00 times Medical daily. Branch albuterol 2020-09 Yes [id number] 2{puff} Inhale 2 [facility] (PROAIR 1-09 Puffs ity of HFA) 90 00:00: every 6 [place] mcg/actuati 00 (six) Medical on inhaler hours as Branc h needed for Wheezing or Shortness of Breath. triamcinolo 2020-09 Yes [id number] Apply to [facility] ne 0.025 % 09 area(s) 3 ity of ointment 00:00: (three) [place] 00 times Medical daily. For Branch itching cyanocobala 2020-09 Yes [id number] 1000ug 1 mL by [facility] min 1,000 1-09 Intramuscu ity of mcg/mL 00:00: lar route [place] injection 00 every 2 Medical (two) Branch weeks. levothyroxi 2020-09 Yes [id number] 50ug Take 1 [facility] ne 50 mcg -09 tablet by ity o f tablet 00:00: mouth [place] 00 every Medical morning. Branch fluticasone 2020-09 Yes [id number] 2{puff} Inhale 2 [facility] propionate 1-09 Puffs ity of (FLOVENT 00:00: every 12 [place] HFA) 110 00 (twelve) Medical mcg/actuati hours. Branch on inhaler Rinse mouth after each use. levalbutero 2020-09 Yes [id number] .63mg Inhale [facility] l 0.63 mg/3 1-09 0.63 mg 3 ity of mL 00:00: (three) [place] nebulizer 00 times Medical solution daily as Branch needed for Wheezing or Shortness of Breath. clotrimazol 2020-09 Yes [id number] Apply to [facility] e-betametha 1-09 area(s) 2 ity of sone cream 00:00: (two) [place] 00 times Medical daily. Branch cyclobenzap 2020-09 Yes [id number] TAKE 1 [facility] rine 5 mg 1-09 TABLET BY ity o f tablet 00:00: MOUTH [place] 00 EVERY 8 Medical HOURS Branch NEEDED econazole 2020-09 Yes [id number] Apply to [facility] nitrate 1 % -09 area(s) 2 ity of cream 00:00: (two) [place] 00 times Medical daily. Branch albuterol 2020-09 Yes [id number] 2{puff} Inhale 2 [facility] (PROAIR 1-09 Puffs ity of HFA) 90 00:00: every 6 [place] mcg/actuati 00 (six) Medical on inhaler hours as Branc h needed for Wheezing or Shortness of Breath. triamcinolo 2020-09 Yes [id number] Apply to [facility] ne 0.025 % 10-04 area(s) 3 ity of ointment 00:00: (three) [place] 00 times Medical daily. For Branch itching cyanocobala 2020-09 Yes [id number] 1000ug 1 mL by [facility] min 1,000 -09 Intramuscu ity of mcg/mL 00:00: lar route [place] injection 00 every 2 Medical (two) Branch weeks. levothyroxi 2020-09 Yes [id number] 50ug Take 1 [facility] ne 50 mcg -09 tablet by ity o f tablet 00:00: mouth [place] 00 every Medical morning. Branch fluticasone 2020-09 Yes [id number] 2{puff} Inhale 2 [facility] propionate 1-09 Puffs ity of (FLOVENT 00:00: every 12 [place] HFA) 110 00 (twelve) Medical mcg/actuati hours. Branch on inhaler Rinse mouth after each use. levalbutero 2020-09 Yes [id number] .63mg Inhale [facility] l 0.63 mg/3 1-09 0.63 mg 3 ity of mL 00:00: (three) [place] nebulizer 00 times Medical solution daily as Branch needed for Wheezing or Shortness of Breath. clotrimazol 2020-09 Yes [id number] Apply to [facility] e-betametha 09 area(s) 2 ity of sone cream 00:00: (two) [place] 00 times Medical daily. Branch cyclobenzap 2020-09 Yes [id number] TAKE 1 [facility] rine 5 mg 1-09 TABLET BY ity o f tablet 00:00: MOUTH [place] 00 EVERY 8 Medical HOURS Branch NEEDED econazole 2020-09 Yes [id number] Apply to [facility] nitrate 1 % 1-09 area(s) 2 ity of cream 00:00: (two) [place] 00 times Medical daily. Branch albuterol 2020-09 Yes [id number] 2{puff} Inhale 2 [facility] (PROAIR 1-09 Puffs ity of HFA) 90 00:00: every 6 [place] mcg/actuati 00 (six) Medical on inhaler hours as Branc h needed for Wheezing or Shortness of Breath. triamcinolo 2020-09 Yes [id number] Apply to [facility] ne 0.025 % 1-09 area(s) 3 ity of ointment 00:00: (three) [place] 00 times Medical daily. For Branch itching cyanocobala 2020-09 Yes [id number] 1000ug 1 mL by [facility] min 1,000 1-09 Intramuscu ity of mcg/mL 00:00: lar route [place] injection 00 every 2 Medical (two) Branch weeks. levothyroxi 2020-09 Yes [id number] 50ug Take 1 [facility] ne 50 mcg 1-09 tablet by ity o f tablet 00:00: mouth [place] 00 every Medical morning. Branch fluticasone 2020-09 Yes [id number] 2{puff} Inhale 2 [facility] propionate 1-09 Puffs ity of (FLOVENT 00:00: every 12 [place] HFA) 110 00 (twelve) Medical mcg/actuati hours. Branch on inhaler Rinse mouth after each use. levalbutero 2020-09 Yes [id number] .63mg Inhale [facility] l 0.63 mg/3 1-09 0.63 mg 3 ity of mL 00:00: (three) [place] nebulizer 00 times Medical solution daily as Branch needed for Wheezing or Shortness of Breath. clotrimazol 2020-09 Yes [id number] Apply to [facility] e-betametha 1-09 area(s) 2 ity of sone cream 00:00: (two) [place] 00 times Medical daily. Branch cyclobenzap 2020-09 Yes [id number] TAKE 1 [facility] rine 5 mg 1-09 TABLET BY ity o f tablet 00:00: MOUTH [place] 00 EVERY 8 Medical HOURS Branch NEEDED econazole 2020-09 Yes [id number] Apply to [facility] nitrate 1 % -09 area(s) 2 ity of cream 00:00: (two) [place] 00 times Medical daily. Branch albuterol 2020-09 Yes [id number] 2{puff} Inhale 2 [facility] (PROAIR 1-09 Puffs ity of HFA) 90 00:00: every 6 [place] mcg/actuati 00 (six) Medical on inhaler hours as Branc h needed for Wheezing or Shortness of Breath. triamcinolo 2020-09 Yes [id number] Apply to [facility] ne 0.025 % 10-04 area(s) 3 ity of ointment 00:00: (three) [place] 00 times Medical daily. For Branch itching cyanocobala 2020-09 Yes [id number] 1000ug 1 mL by [facility] min 1,000 -09 Intramuscu ity of mcg/mL 00:00: lar route [place] injection 00 every 2 Medical (two) Branch weeks. levothyroxi 2020-09 Yes [id number] 50ug Take 1 [facility] ne 50 mcg -09 tablet by ity o f tablet 00:00: mouth [place] 00 every Medical morning. Branch fluticasone 2020-09 Yes [id number] 2{puff} Inhale 2 [facility] propionate 1-09 Puffs ity of (FLOVENT 00:00: every 12 [place] HFA) 110 00 (twelve) Medical mcg/actuati hours. Branch on inhaler Rinse mouth after each use. levalbutero 2020-09 Yes [id number] .63mg Inhale [facility] l 0.63 mg/3 1-09 0.63 mg 3 ity of mL 00:00: (three) [place] nebulizer 00 times Medical solution daily as Branch needed for Wheezing or Shortness of Breath. clotrimazol 2020-09 Yes [id number] Apply to [facility] e-betametha -09 area(s) 2 ity of sone cream 00:00: (two) [place] 00 times Medical daily. Branch cyclobenzap 2020-09 Yes [id number] TAKE 1 [facility] rine 5 mg 1-09 TABLET BY ity o f tablet 00:00: MOUTH [place] 00 EVERY 8 Medical HOURS Branch NEEDED econazole 2020-09 Yes [id number] Apply to [facility] nitrate 1 % - area(s) 2 ity of cream 00:00: (two) [place] 00 times Medical daily. Branch albuterol 2020-09 Yes [id number] 2{puff} Inhale 2 [facility] (PROAIR 1-09 Puffs ity of HFA) 90 00:00: every 6 [place] mcg/actuati 00 (six) Medical on inhaler hours as Branc h needed for Wheezing or Shortness of Breath. triamcinolo 2020-09 Yes [id number] Apply to [facility] ne 0.025 % 09 area(s) 3 ity of ointment 00:00: (three) [place] 00 times Medical daily. For Branch itching cyanocobala 2020-09 Yes [id number] 1000ug 1 mL by [facility] min 1,000 1-09 Intramuscu ity of mcg/mL 00:00: lar route [place] injection 00 every 2 Medical (two) Branch weeks. levothyroxi 2020-09 Yes [id number] 50ug Take 1 [facility] ne 50 mcg 1-09 tablet by ity o f tablet 00:00: mouth [place] 00 every Medical morning. Branch fluticasone 2020-09 Yes [id number] 2{puff} Inhale 2 [facility] propionate 1-09 Puffs ity of (FLOVENT 00:00: every 12 [place] HFA) 110 00 (twelve) Medical mcg/actuati hours. Branch on inhaler Rinse mouth after each use. levalbutero 2020-09 Yes [id number] .63mg Inhale [facility] l 0.63 mg/3 1-09 0.63 mg 3 ity of mL 00:00: (three) [place] nebulizer 00 times Medical solution daily as Branch needed for Wheezing or Shortness of Breath. clotrimazol 2020-09 Yes [id number] Apply to [facility] e-betametha 1-09 area(s) 2 ity of sone cream 00:00: (two) [place] 00 times Medical daily. Branch cyclobenzap 2020-09 Yes [id number] TAKE 1 [facility] rine 5 mg 1-09 TABLET BY ity o f tablet 00:00: MOUTH [place] 00 EVERY 8 Medical HOURS Branch NEEDED econazole 2020-09 Yes [id number] Apply to [facility] nitrate 1 % -09 area(s) 2 ity of cream 00:00: (two) [place] 00 times Medical daily. Branch albuterol 2020-09 Yes [id number] 2{puff} Inhale 2 [facility] (PROAIR 1-09 Puffs ity of HFA) 90 00:00: every 6 [place] mcg/actuati 00 (six) Medical on inhaler hours as Branc h needed for Wheezing or Shortness of Breath. triamcinolo 2020-09 Yes [id number] Apply to [facility] ne 0.025 % -09 area(s) 3 ity of ointment 00:00: (three) [place] 00 times Medical daily. For Branch itching cyanocobala 2020-09 Yes [id number] 1000ug 1 mL by [facility] min 1,000 1-09 Intramuscu ity of mcg/mL 00:00: lar route [place] injection 00 every 2 Medical (two) Branch weeks. levothyroxi 2020-09 Yes [id number] 50ug Take 1 [facility] ne 50 mcg -09 tablet by ity o f tablet 00:00: mouth [place] 00 every Medical morning. Branch fluticasone 2020-09 Yes [id number] 2{puff} Inhale 2 [facility] propionate 1-09 Puffs ity of (FLOVENT 00:00: every 12 [place] HFA) 110 00 (twelve) Medical mcg/actuati hours. Branch on inhaler Rinse mouth after each use. levalbutero 2020-09 Yes [id number] .63mg Inhale [facility] l 0.63 mg/3 1-09 0.63 mg 3 ity of mL 00:00: (three) [place] nebulizer 00 times Medical solution daily as Branch needed for Wheezing or Shortness of Breath. clotrimazol 2020-09 Yes [id number] Apply to [facility] e-betametha -09 area(s) 2 ity of sone cream 00:00: (two) [place] 00 times Medical daily. Branch cyclobenzap 2020-09 Yes [id number] TAKE 1 [facility] rine 5 mg 1-09 TABLET BY ity o f tablet 00:00: MOUTH [place] 00 EVERY 8 Medical HOURS Branch NEEDED econazole 2020-09 Yes [id number] Apply to [facility] nitrate 1 % -09 area(s) 2 ity of cream 00:00: (two) [place] 00 times Medical daily. Branch albuterol 2020-09 Yes [id number] 2{puff} Inhale 2 [facility] (PROAIR 1-09 Puffs ity of HFA) 90 00:00: every 6 [place] mcg/actuati 00 (six) Medical on inhaler hours as Branc h needed for Wheezing or Shortness of Breath. triamcinolo 2020-09 Yes [id number] Apply to [facility] ne 0.025 % 10-04 area(s) 3 ity of ointment 00:00: (three) [place] 00 times Medical daily. For Branch itching cyanocobala 2020-09 Yes [id number] 1000ug 1 mL by [facility] min 1,000 -09 Intramuscu ity of mcg/mL 00:00: lar route [place] injection 00 every 2 Medical (two) Branch weeks. levothyroxi 2020-09 Yes [id number] 50ug Take 1 [facility] ne 50 mcg -09 tablet by ity o f tablet 00:00: mouth [place] 00 every Medical morning. Branch fluticasone 2020-09 Yes [id number] 2{puff} Inhale 2 [facility] propionate 1-09 Puffs ity of (FLOVENT 00:00: every 12 [place] HFA) 110 00 (twelve) Medical mcg/actuati hours. Branch on inhaler Rinse mouth after each use. levalbutero 2020-09 Yes [id number] .63mg Inhale [facility] l 0.63 mg/3 -09 0.63 mg 3 ity of mL 00:00: (three) [place] nebulizer 00 times Medical solution daily as Branch needed for Wheezing or Shortness of Breath. clotrimazol 2020-09 Yes [id number] Apply to [facility] e-betametha 10-04 area(s) 2 ity of sone cream 00:00: (two) [place] 00 times Medical daily. Branch cyclobenzap 2020-09 Yes [id number] TAKE 1 [facility] rine 5 mg -09 TABLET BY ity o f tablet 00:00: MOUTH [place] 00 EVERY 8 Medical HOURS Branch NEEDED econazole 2020-09 Yes [id number] Apply to [facility] nitrate 1 % -09 area(s) 2 ity of cream 00:00: (two) [place] 00 times Medical daily. Branch albuterol 2020-09 Yes [id number] 2{puff} Inhale 2 [facility] (PROAIR 1-09 Puffs ity of HFA) 90 00:00: every 6 [place] mcg/actuati 00 (six) Medical on inhaler hours as Branc h needed for Wheezing or Shortness of Breath. triamcinolo 2020-09 Yes [id number] Apply to [facility] ne 0.025 % 1-09 area(s) 3 ity of ointment 00:00: (three) [place] 00 times Medical daily. For Branch itching cyanocobala 2020-09 Yes [id number] 1000ug 1 mL by [facility] min 1,000 1-09 Intramuscu ity of mcg/mL 00:00: lar route [place] injection 00 every 2 Medical (two) Branch weeks. levothyroxi 2020-09 Yes [id number] 50ug Take 1 [facility] ne 50 mcg 1-09 tablet by ity o f tablet 00:00: mouth [place] 00 every Medical morning. Branch fluticasone 2020-09 Yes [id number] 2{puff} Inhale 2 [facility] propionate 1-09 Puffs ity of (FLOVENT 00:00: every 12 [place] HFA) 110 00 (twelve) Medical mcg/actuati hours. Branch on inhaler Rinse mouth after each use. levalbutero 2020-09 Yes [id number] .63mg Inhale [facility] l 0.63 mg/3 1-09 0.63 mg 3 ity of mL 00:00: (three) [place] nebulizer 00 times Medical solution daily as Branch needed for Wheezing or Shortness of Breath. clotrimazol 2020-09 Yes [id number] Apply to [facility] e-betametha 09 area(s) 2 ity of sone cream 00:00: (two) [place] 00 times Medical daily. Branch cyclobenzap 2020-09 Yes [id number] TAKE 1 [facility] rine 5 mg 1-09 TABLET BY ity o f tablet 00:00: MOUTH [place] 00 EVERY 8 Medical HOURS Branch NEEDED econazole 2020-09 Yes [id number] Apply to [facility] nitrate 1 % 1-09 area(s) 2 ity of cream 00:00: (two) [place] 00 times Medical daily. Branch albuterol 2020-09 Yes [id number] 2{puff} Inhale 2 [facility] (PROAIR 1-09 Puffs ity of HFA) 90 00:00: every 6 [place] mcg/actuati 00 (six) Medical on inhaler hours as Branc h needed for Wheezing or Shortness of Breath. triamcinolo 2020-09 Yes [id number] Apply to [facility] ne 0.025 % 1-09 area(s) 3 ity of ointment 00:00: (three) [place] 00 times Medical daily. For Branch itching cyanocobala 2020-09 Yes [id number] 1000ug 1 mL by [facility] min 1,000 1-09 Intramuscu ity of mcg/mL 00:00: lar route [place] injection 00 every 2 Medical (two) Branch weeks. levothyroxi 2020-09 Yes [id number] 50ug Take 1 [facility] ne 50 mcg 1-09 tablet by ity o f tablet 00:00: mouth [place] 00 every Medical morning. Branch fluticasone 2020-09 Yes [id number] 2{puff} Inhale 2 [facility] propionate -09 Puffs ity of (FLOVENT 00:00: every 12 [place] HFA) 110 00 (twelve) Medical mcg/actuati hours. Branch on inhaler Rinse mouth after each use. levalbutero 2020-09 Yes [id number] .63mg Inhale [facility] l 0.63 mg/3 -09 0.63 mg 3 ity of mL 00:00: (three) [place] nebulizer 00 times Medical solution daily as Branch needed for Wheezing or Shortness of Breath. clotrimazol 2020-09 Yes [id number] Apply to [facility] e-betametha 10-04 area(s) 2 ity of sone cream 00:00: (two) [place] 00 times Medical daily. Branch cyclobenzap 2020-09 Yes [id number] TAKE 1 [facility] rine 5 mg -09 TABLET BY ity o f tablet 00:00: MOUTH [place] 00 EVERY 8 Medical HOURS Branch NEEDED econazole 2020-09 Yes [id number] Apply to [facility] nitrate 1 % 09 area(s) 2 ity of cream 00:00: (two) [place] 00 times Medical daily. Branch albuterol 2020-09 Yes [id number] 2{puff} Inhale 2 [facility] (PROAIR 1-09 Puffs ity of HFA) 90 00:00: every 6 [place] mcg/actuati 00 (six) Medical on inhaler hours as Branc h needed for Wheezing or Shortness of Breath. triamcinolo 2020-09 Yes [id number] Apply to [facility] ne 0.025 % 10-04 area(s) 3 ity of ointment 00:00: (three) [place] 00 times Medical daily. For Branch itching cyanocobala 2020-09 Yes [id number] 1000ug 1 mL by [facility] min 1,000 09 Intramuscu ity of mcg/mL 00:00: lar route [place] injection 00 every 2 Medical (two) Branch weeks. levothyroxi 2020-09 Yes [id number] 50ug Take 1 [facility] ne 50 mcg -09 tablet by ity o f tablet 00:00: mouth [place] 00 every Medical morning. Branch fluticasone 2020-09 Yes [id number] 2{puff} Inhale 2 [facility] propionate -09 Puffs ity of (FLOVENT 00:00: every 12 [place] HFA) 110 00 (twelve) Medical mcg/actuati hours. Branch on inhaler Rinse mouth after each use. levalbutero 2020-09 Yes [id number] .63mg Inhale [facility] l 0.63 mg/3 09 0.63 mg 3 ity of mL 00:00: (three) [place] nebulizer 00 times Medical solution daily as Branch needed for Wheezing or Shortness of Breath. clotrimazol 2020-09 Yes [id number] Apply to [facility] e-betametha 10-04 area(s) 2 ity of sone cream 00:00: (two) [place] 00 times Medical daily. Branch cyclobenzap 2020-09 Yes [id number] TAKE 1 [facility] rine 5 mg -09 TABLET BY ity o f tablet 00:00: MOUTH [place] 00 EVERY 8 Medical HOURS Branch NEEDED econazole 2020-09 Yes [id number] Apply to [facility] nitrate 1 % 10-04 area(s) 2 ity of cream 00:00: (two) [place] 00 times Medical daily. Branch albuterol 2020-09 Yes [id number] 2{puff} Inhale 2 [facility] (PROAIR 1-09 Puffs ity of HFA) 90 00:00: every 6 [place] mcg/actuati 00 (six) Medical on inhaler hours as Branc h needed for Wheezing or Shortness of Breath. triamcinolo 2020-09 Yes [id number] Apply to [facility] ne 0.025 % -09 area(s) 3 ity of ointment 00:00: (three) [place] 00 times Medical daily. For Branch itching cyanocobala 2020-09 Yes [id number] 1000ug 1 mL by [facility] min 1,000 1-09 Intramuscu ity of mcg/mL 00:00: lar route [place] injection 00 every 2 Medical (two) Branch weeks. levothyroxi 2020-09 Yes [id number] 50ug Take 1 [facility] ne 50 mcg 1-09 tablet by ity o f tablet 00:00: mouth [place] 00 every Medical morning. Branch fluticasone 2020-09 Yes [id number] 2{puff} Inhale 2 [facility] propionate 1-09 Puffs ity of (FLOVENT 00:00: every 12 [place] HFA) 110 00 (twelve) Medical mcg/actuati hours. Branch on inhaler Rinse mouth after each use. levalbutero 2020-09 Yes [id number] .63mg Inhale [facility] l 0.63 mg/3 1-09 0.63 mg 3 ity of mL 00:00: (three) [place] nebulizer 00 times Medical solution daily as Branch needed for Wheezing or Shortness of Breath. clotrimazol 2020-09 Yes [id number] Apply to [facility] e-betametha 1-09 area(s) 2 ity of sone cream 00:00: (two) [place] 00 times Medical daily. Branch cyclobenzap 2020-09 Yes [id number] TAKE 1 [facility] rine 5 mg 1-09 TABLET BY ity o f tablet 00:00: MOUTH [place] 00 EVERY 8 Medical HOURS Branch NEEDED econazole 2020-09 Yes [id number] Apply to [facility] nitrate 1 % 1-09 area(s) 2 ity of cream 00:00: (two) [place] 00 times Medical daily. Branch albuterol 2020-09 Yes [id number] 2{puff} Inhale 2 [facility] (PROAIR 1-09 Puffs ity of HFA) 90 00:00: every 6 [place] mcg/actuati 00 (six) Medical on inhaler hours as Branc h needed for Wheezing or Shortness of Breath. triamcinolo 2020-09 Yes [id number] Apply to [facility] ne 0.025 % 1-09 area(s) 3 ity of ointment 00:00: (three) [place] 00 times Medical daily. For Branch itching cyanocobala 2020-09 Yes [id number] 1000ug 1 mL by [facility] min 1,000 1-09 Intramuscu ity of mcg/mL 00:00: lar route [place] injection 00 every 2 Medical (two) Branch weeks. levothyroxi 2020-09 Yes [id number] 50ug Take 1 [facility] ne 50 mcg 1-09 tablet by ity o f tablet 00:00: mouth [place] 00 every Medical morning. Branch fluticasone 2020-09 Yes [id number] 2{puff} Inhale 2 [facility] propionate 1-09 Puffs ity of (FLOVENT 00:00: every 12 [place] HFA) 110 00 (twelve) Medical mcg/actuati hours. Branch on inhaler Rinse mouth after each use. levalbutero 2020-09 Yes [id number] .63mg Inhale [facility] l 0.63 mg/3 1-09 0.63 mg 3 ity of mL 00:00: (three) [place] nebulizer 00 times Medical solution daily as Branch needed for Wheezing or Shortness of Breath. clotrimazol 2020-09 Yes [id number] Apply to [facility] e-betametha 1-09 area(s) 2 ity of sone cream 00:00: (two) [place] 00 times Medical daily. Branch cyclobenzap 2020-09 Yes [id number] TAKE 1 [facility] rine 5 mg -09 TABLET BY ity o f tablet 00:00: MOUTH [place] 00 EVERY 8 Medical HOURS Branch NEEDED econazole 2020-09 Yes [id number] Apply to [facility] nitrate 1 % -09 area(s) 2 ity of cream 00:00: (two) [place] 00 times Medical daily. Branch albuterol 2020-09 Yes [id number] 2{puff} Inhale 2 [facility] (PROAIR 1-09 Puffs ity of HFA) 90 00:00: every 6 [place] mcg/actuati 00 (six) Medical on inhaler hours as Branc h needed for Wheezing or Shortness of Breath. triamcinolo 2020-09 Yes [id number] Apply to [facility] ne 0.025 % 1-09 area(s) 3 ity of ointment 00:00: (three) [place] 00 times Medical daily. For Branch itching cyanocobala 2020-09 Yes [id number] 1000ug 1 mL by [facility] min 1,000 1-09 Intramuscu ity of mcg/mL 00:00: lar route [place] injection 00 every 2 Medical (two) Branch weeks. levothyroxi 2020-09 Yes [id number] 50ug Take 1 [facility] ne 50 mcg 1-09 tablet by ity o f tablet 00:00: mouth [place] 00 every Medical morning. Branch fluticasone 2020-09 Yes [id number] 2{puff} Inhale 2 [facility] propionate 1-09 Puffs ity of (FLOVENT 00:00: every 12 [place] HFA) 110 00 (twelve) Medical mcg/actuati hours. Branch on inhaler Rinse mouth after each use. levalbutero 2020-09 Yes [id number] .63mg Inhale [facility] l 0.63 mg/3 1-09 0.63 mg 3 ity of mL 00:00: (three) [place] nebulizer 00 times Medical solution daily as Branch needed for Wheezing or Shortness of Breath. clotrimazol 2020-09 Yes [id number] Apply to [facility] e-betametha -09 area(s) 2 ity of sone cream 00:00: (two) [place] 00 times Medical daily. Branch cyclobenzap 2020-09 Yes [id number] TAKE 1 [facility] rine 5 mg -09 TABLET BY ity o f tablet 00:00: MOUTH [place] 00 EVERY 8 Medical HOURS Branch NEEDED econazole 2020-09 Yes [id number] Apply to [facility] nitrate 1 % -09 area(s) 2 ity of cream 00:00: (two) [place] 00 times Medical daily. Branch albuterol 2020-09 Yes [id number] 2{puff} Inhale 2 [facility] (PROAIR 1-09 Puffs ity of HFA) 90 00:00: every 6 [place] mcg/actuati 00 (six) Medical on inhaler hours as Branc h needed for Wheezing or Shortness of Breath. triamcinolo 2020-09 Yes [id number] Apply to [facility] ne 0.025 % 1-09 area(s) 3 ity of ointment 00:00: (three) [place] 00 times Medical daily. For Branch itching cyanocobala 2020-09 Yes [id number] 1000ug 1 mL by [facility] min 1,000 1-09 Intramuscu ity of mcg/mL 00:00: lar route [place] injection 00 every 2 Medical (two) Branch weeks. levothyroxi 2020-09 Yes [id number] 50ug Take 1 [facility] ne 50 mcg 1-09 tablet by ity o f tablet 00:00: mouth [place] 00 every Medical morning. Branch fluticasone 2020-09 Yes [id number] 2{puff} Inhale 2 [facility] propionate 1-09 Puffs ity of (FLOVENT 00:00: every 12 [place] HFA) 110 00 (twelve) Medical mcg/actuati hours. Branch on inhaler Rinse mouth after each use. levalbutero 2020-09 Yes [id number] .63mg Inhale [facility] l 0.63 mg/3 1-09 0.63 mg 3 ity of mL 00:00: (three) [place] nebulizer 00 times Medical solution daily as Branch needed for Wheezing or Shortness of Breath. clotrimazol 2020-09 Yes [id number] Apply to [facility] e-betametha -09 area(s) 2 ity of sone cream 00:00: (two) [place] 00 times Medical daily. Branch cyclobenzap 2020-09 Yes [id number] TAKE 1 [facility] rine 5 mg -09 TABLET BY ity o f tablet 00:00: MOUTH [place] 00 EVERY 8 Medical HOURS Branch NEEDED econazole 2020-09 Yes [id number] Apply to [facility] nitrate 1 % 09 area(s) 2 ity of cream 00:00: (two) [place] 00 times Medical daily. Branch albuterol 2020-09 Yes [id number] 2{puff} Inhale 2 [facility] (PROAIR 1-09 Puffs ity of HFA) 90 00:00: every 6 [place] mcg/actuati 00 (six) Medical on inhaler hours as Branc h needed for Wheezing or Shortness of Breath. triamcinolo 2020-09 Yes [id number] Apply to [facility] ne 0.025 % 1-09 area(s) 3 ity of ointment 00:00: (three) [place] 00 times Medical daily. For Branch itching cyanocobala 2020-09 Yes [id number] 1000ug 1 mL by [facility] min 1,000 1-09 Intramuscu ity of mcg/mL 00:00: lar route [place] injection 00 every 2 Medical (two) Branch weeks. levothyroxi 2020-09 Yes [id number] 50ug Take 1 [facility] ne 50 mcg 1-09 tablet by ity o f tablet 00:00: mouth [place] 00 every Medical morning. Branch fluticasone 2020-09 Yes [id number] 2{puff} Inhale 2 [facility] propionate 1-09 Puffs ity of (FLOVENT 00:00: every 12 [place] HFA) 110 00 (twelve) Medical mcg/actuati hours. Branch on inhaler Rinse mouth after each use. levalbutero 2020-09 Yes [id number] .63mg Inhale [facility] l 0.63 mg/3 1-09 0.63 mg 3 ity of mL 00:00: (three) [place] nebulizer 00 times Medical solution daily as Branch needed for Wheezing or Shortness of Breath. clotrimazol 2020-09 Yes [id number] Apply to [facility] e-betametha 1-09 area(s) 2 ity of sone cream 00:00: (two) [place] 00 times Medical daily. Branch cyclobenzap 2020-09 Yes [id number] TAKE 1 [facility] rine 5 mg 1-09 TABLET BY ity o f tablet 00:00: MOUTH [place] 00 EVERY 8 Medical HOURS Branch NEEDED econazole 2020-09 Yes [id number] Apply to [facility] nitrate 1 % -09 area(s) 2 ity of cream 00:00: (two) [place] 00 times Medical daily. Branch albuterol 2020-09 Yes [id number] 2{puff} Inhale 2 [facility] (PROAIR 1-09 Puffs ity of HFA) 90 00:00: every 6 [place] mcg/actuati 00 (six) Medical on inhaler hours as Branc h needed for Wheezing or Shortness of Breath. triamcinolo 2020-09 Yes [id number] Apply to [facility] ne 0.025 % 1-09 area(s) 3 ity of ointment 00:00: (three) [place] 00 times Medical daily. For Branch itching cyanocobala 2020-09 Yes [id number] 1000ug 1 mL by [facility] min 1,000 1-09 Intramuscu ity of mcg/mL 00:00: lar route [place] injection 00 every 2 Medical (two) Branch weeks. fluticasone 2020-09 Yes [id number] 2{puff} Inhale 2 [facility] propionate 1-09 Puffs ity of (FLOVENT 00:00: every 12 [place] HFA) 110 00 (twelve) Medical mcg/actuati hours. Branch on inhaler Rinse mouth after each use. levalbutero 2020-09 Yes [id number] .63mg Inhale [facility] l 0.63 mg/3 1-09 0.63 mg 3 ity of mL 00:00: (three) [place] nebulizer 00 times Medical solution daily as Branch needed for Wheezing or Shortness of Breath. clotrimazol 2020-09 Yes [id number] Apply to [facility] e-betametha 1-09 area(s) 2 ity of sone cream 00:00: (two) [place] 00 times Medical daily. Branch cyclobenzap 2020-09 Yes [id number] TAKE 1 [facility] rine 5 mg 10-04 TABLET BY ity o f tablet 00:00: MOUTH [place] 00 EVERY 8 Medical HOURS Branch NEEDED econazole 2020-09 Yes [id number] Apply to [facility] nitrate 1 % -09 area(s) 2 ity of cream 00:00: (two) [place] 00 times Medical daily. Branch albuterol 2020-09 Yes [id number] 2{puff} Inhale 2 [facility] (PROAIR 1-09 Puffs ity of HFA) 90 00:00: every 6 [place] mcg/actuati 00 (six) Medical on inhaler hours as Branc h needed for Wheezing or Shortness of Breath. triamcinolo 2020-09 Yes [id number] Apply to [facility] ne 0.025 % 1-09 area(s) 3 ity of ointment 00:00: (three) [place] 00 times Medical daily. For Branch itching cyanocobala 2020-09 Yes [id number] 1000ug 1 mL by [facility] min 1,000 1-09 Intramuscu ity of mcg/mL 00:00: lar route [place] injection 00 every 2 Medical (two) Branch weeks. fluticasone 2020-09 Yes [id number] 2{puff} Inhale 2 [facility] propionate 1-09 Puffs ity of (FLOVENT 00:00: every 12 [place] HFA) 110 00 (twelve) Medical mcg/actuati hours. Branch on inhaler Rinse mouth after each use. levalbutero 2020-09 Yes [id number] .63mg Inhale [facility] l 0.63 mg/3 1-09 0.63 mg 3 ity of mL 00:00: (three) [place] nebulizer 00 times Medical solution daily as Branch needed for Wheezing or Shortness of Breath. clotrimazol 2020-09 Yes [id number] Apply to [facility] e-betametha 10-04 area(s) 2 ity of sone cream 00:00: (two) [place] 00 times Medical daily. Branch cyclobenzap 2020-09 Yes [id number] TAKE 1 [facility] rine 5 mg -09 TABLET BY ity o f tablet 00:00: MOUTH [place] 00 EVERY 8 Medical HOURS Branch NEEDED econazole 2020-09 Yes [id number] Apply to [facility] nitrate 1 % 10-04 area(s) 2 ity of cream 00:00: (two) [place] 00 times Medical daily. Branch albuterol 2020-09 Yes [id number] 2{puff} Inhale 2 [facility] (PROAIR 1-09 Puffs ity of HFA) 90 00:00: every 6 [place] mcg/actuati 00 (six) Medical on inhaler hours as Branc h needed for Wheezing or Shortness of Breath. triamcinolo 2020-09 Yes [id number] Apply to [facility] ne 0.025 % 10-04 area(s) 3 ity of ointment 00:00: (three) [place] 00 times Medical daily. For Branch itching cyanocobala 2020-09 Yes [id number] 1000ug 1 mL by [facility] min 1,000 -09 Intramuscu ity of mcg/mL 00:00: lar route [place] injection 00 every 2 Medical (two) Branch weeks. levalbutero 2020-09 Yes [id number] .63mg Inhale [facility] l 0.63 mg/3 -09 0.63 mg 3 ity of mL 00:00: (three) [place] nebulizer 00 times Medical solution daily as Branch needed for Wheezing or Shortness of Breath. cyclobenzap 2020-09 Yes [id number] TAKE 1 [facility] rine 5 mg 1-09 TABLET BY ity o f tablet 00:00: MOUTH [place] 00 EVERY 8 Medical HOURS Branch NEEDED albuterol 2020-09 Yes [id number] 2{puff} Inhale 2 [facility] (PROAIR 1-09 Puffs ity of HFA) 90 00:00: every 6 [place] mcg/actuati 00 (six) Medical on inhaler hours as Branc h needed for Wheezing or Shortness of Breath. cyanocobala 2020-09 Yes [id number] 1000ug 1 mL by [facility] min 1,000 1-09 Intramuscu ity of mcg/mL 00:00: lar route [place] injection 00 every 2 Medical (two) Branch weeks. levalbutero 2020-09 Yes [id number] .63mg Inhale [facility] l 0.63 mg/3 1-09 0.63 mg 3 ity of mL 00:00: (three) [place] nebulizer 00 times Medical solution daily as Branch needed for Wheezing or Shortness of Breath. cyclobenzap 2020-09 Yes [id number] TAKE 1 [facility] rine 5 mg 1-09 TABLET BY ity o f tablet 00:00: MOUTH [place] 00 EVERY 8 Medical HOURS Branch NEEDED albuterol 2020-09 Yes [id number] 2{puff} Inhale 2 [facility] (PROAIR 1-09 Puffs ity of HFA) 90 00:00: every 6 [place] mcg/actuati 00 (six) Medical on inhaler hours as Branc h needed for Wheezing or Shortness of Breath. cyanocobala 2020-09 Yes [id number] 1000ug 1 mL by [facility] min 1,000 1-09 Intramuscu ity of mcg/mL 00:00: lar route [place] injection 00 every 2 Medical (two) Branch weeks. levalbutero 2020-09 Yes [id number] .63mg Inhale [facility] l 0.63 mg/3 1-09 0.63 mg 3 ity of mL 00:00: (three) [place] nebulizer 00 times Medical solution daily as Branch needed for Wheezing or Shortness of Breath. cyclobenzap 2020-09 Yes [id number] TAKE 1 [facility] rine 5 mg 1-09 TABLET BY ity o f tablet 00:00: MOUTH [place] 00 EVERY 8 Medical HOURS Branch NEEDED albuterol 2020-09 Yes [id number] 2{puff} Inhale 2 [facility] (PROAIR 1-09 Puffs ity of HFA) 90 00:00: every 6 [place] mcg/actuati 00 (six) Medical on inhaler hours as Branc h needed for Wheezing or Shortness of Breath. cyanocobala 2020-09 Yes [id number] 1000ug 1 mL by [facility] min 1,000 1-09 Intramuscu ity of mcg/mL 00:00: lar route [place] injection 00 every 2 Medical (two) Branch weeks. levalbutero 2020-09 Yes [id number] .63mg Inhale [facility] l 0.63 mg/3 1-09 0.63 mg 3 ity of mL 00:00: (three) [place] nebulizer 00 times Medical solution daily as Branch needed for Wheezing or Shortness of Breath. cyclobenzap 2020-09 Yes [id number] TAKE 1 [facility] rine 5 mg 1-09 TABLET BY ity o f tablet 00:00: MOUTH [place] 00 EVERY 8 Medical HOURS Branch NEEDED albuterol 2020-09 Yes [id number] 2{puff} Inhale 2 [facility] (PROAIR 1-09 Puffs ity of HFA) 90 00:00: every 6 [place] mcg/actuati 00 (six) Medical on inhaler hours as Branc h needed for Wheezing or Shortness of Breath. cyanocobala 2020-09 Yes [id number] 1000ug 1 mL by [facility] min 1,000 1-09 Intramuscu ity of mcg/mL 00:00: lar route [place] injection 00 every 2 Medical (two) Branch weeks. levalbutero 2020-09 Yes [id number] .63mg Inhale [facility] l 0.63 mg/3 1-09 0.63 mg 3 ity of mL 00:00: (three) [place] nebulizer 00 times Medical solution daily as Branch needed for Wheezing or Shortness of Breath. cyclobenzap 2020-09 Yes [id number] TAKE 1 [facility] rine 5 mg 1-09 TABLET BY ity o f tablet 00:00: MOUTH [place] 00 EVERY 8 Medical HOURS Branch NEEDED albuterol 2020-09 Yes [id number] 2{puff} Inhale 2 [facility] (PROAIR 1-09 Puffs ity of HFA) 90 00:00: every 6 [place] mcg/actuati 00 (six) Medical on inhaler hours as Branc h needed for Wheezing or Shortness of Breath. cyanocobala 2020-09 Yes [id number] 1000ug 1 mL by [facility] min 1,000 1-09 Intramuscu ity of mcg/mL 00:00: lar route [place] injection 00 every 2 Medical (two) Branch weeks. levalbutero 2020-09 Yes [id number] .63mg Inhale [facility] l 0.63 mg/3 1-09 0.63 mg 3 ity of mL 00:00: (three) [place] nebulizer 00 times Medical solution daily as Branch needed for Wheezing or Shortness of Breath. cyclobenzap 2020-09 Yes [id number] TAKE 1 [facility] rine 5 mg 1-09 TABLET BY ity o f tablet 00:00: MOUTH [place] 00 EVERY 8 Medical HOURS Branch NEEDED albuterol 2020-09 Yes [id number] 2{puff} Inhale 2 [facility] (PROAIR 1-09 Puffs ity of HFA) 90 00:00: every 6 [place] mcg/actuati 00 (six) Medical on inhaler hours as Branc h needed for Wheezing or Shortness of Breath. cyanocobala 2020-09 Yes [id number] 1000ug 1 mL by [facility] min 1,000 1-09 Intramuscu ity of mcg/mL 00:00: lar route [place] injection 00 every 2 Medical (two) Branch weeks. levalbutero 2020-09 Yes [id number] .63mg Inhale [facility] l 0.63 mg/3 1-09 0.63 mg 3 ity of mL 00:00: (three) [place] nebulizer 00 times Medical solution daily as Branch needed for Wheezing or Shortness of Breath. cyclobenzap 2020-09 Yes [id number] TAKE 1 [facility] rine 5 mg 1-09 TABLET BY ity o f tablet 00:00: MOUTH [place] 00 EVERY 8 Medical HOURS Branch NEEDED albuterol 2020-09 Yes [id number] 2{puff} Inhale 2 [facility] (PROAIR 1-09 Puffs ity of HFA) 90 00:00: every 6 [place] mcg/actuati 00 (six) Medical on inhaler hours as Branc h needed for Wheezing or Shortness of Breath. cyanocobala 2020-09 Yes [id number] 1000ug 1 mL by [facility] min 1,000 1-09 Intramuscu ity of mcg/mL 00:00: lar route [place] injection 00 every 2 Medical (two) Branch weeks. levalbutero 2020-09 Yes [id number] .63mg Inhale [facility] l 0.63 mg/3 1-09 0.63 mg 3 ity of mL 00:00: (three) [place] nebulizer 00 times Medical solution daily as Branch needed for Wheezing or Shortness of Breath. cyclobenzap 2020-09 Yes [id number] TAKE 1 [facility] rine 5 mg 1-09 TABLET BY ity o f tablet 00:00: MOUTH [place] 00 EVERY 8 Medical HOURS Branch NEEDED albuterol 2020-09 Yes [id number] 2{puff} Inhale 2 [facility] (PROAIR 1-09 Puffs ity of HFA) 90 00:00: every 6 [place] mcg/actuati 00 (six) Medical on inhaler hours as Branc h needed for Wheezing or Shortness of Breath. cyanocobala 2020-09 Yes [id number] 1000ug 1 mL by [facility] min 1,000 1-09 Intramuscu ity of mcg/mL 00:00: lar route [place] injection 00 every 2 Medical (two) Branch weeks. levalbutero 2020-09 Yes [id number] .63mg Inhale [facility] l 0.63 mg/3 1-09 0.63 mg 3 ity of mL 00:00: (three) [place] nebulizer 00 times Medical solution daily as Branch needed for Wheezing or Shortness of Breath. cyclobenzap 2020-09 Yes [id number] TAKE 1 [facility] rine 5 mg 1-09 TABLET BY ity o f tablet 00:00: MOUTH [place] 00 EVERY 8 Medical HOURS Branch NEEDED albuterol 2020-09 Yes [id number] 2{puff} Inhale 2 [facility] (PROAIR 1-09 Puffs ity of HFA) 90 00:00: every 6 [place] mcg/actuati 00 (six) Medical on inhaler hours as Branc h needed for Wheezing or Shortness of Breath. levalbutero 2020-09 Yes [id number] .63mg Inhale [facility] l 0.63 mg/3 1-09 0.63 mg 3 ity of mL 00:00: (three) [place] nebulizer 00 times Medical solution daily as Branch needed for Wheezing or Shortness of Breath. cyclobenzap 2020-09 Yes [id number] TAKE 1 [facility] rine 5 mg 1-09 TABLET BY ity o f tablet 00:00: MOUTH [place] 00 EVERY 8 Medical HOURS Branch NEEDED albuterol 2020-09 Yes [id number] 2{puff} Inhale 2 [facility] (PROAIR 1-09 Puffs ity of HFA) 90 00:00: every 6 [place] mcg/actuati 00 (six) Medical on inhaler hours as Branc h needed for Wheezing or Shortness of Breath. levalbutero 2020-09 Yes [id number] .63mg Inhale [facility] l 0.63 mg/3 1-09 0.63 mg 3 ity of mL 00:00: (three) [place] nebulizer 00 times Medical solution daily as Branch needed for Wheezing or Shortness of Breath. cyclobenzap 2020-09 Yes [id number] TAKE 1 [facility] rine 5 mg 1-09 TABLET BY ity o f tablet 00:00: MOUTH [place] 00 EVERY 8 Medical HOURS Branch NEEDED albuterol 2020-09 Yes [id number] 2{puff} Inhale 2 [facility] (PROAIR 1-09 Puffs ity of HFA) 90 00:00: every 6 [place] mcg/actuati 00 (six) Medical on inhaler hours as Branc h needed for Wheezing or Shortness of Breath. levalbutero 2020-09 Yes [id number] .63mg Inhale [facility] l 0.63 mg/3 1-09 0.63 mg 3 ity of mL 00:00: (three) [place] nebulizer 00 times Medical solution daily as Branch needed for Wheezing or Shortness of Breath. cyclobenzap 2020-09 Yes [id number] TAKE 1 [facility] rine 5 mg 1-09 TABLET BY ity o f tablet 00:00: MOUTH [place] 00 EVERY 8 Medical HOURS Branch NEEDED albuterol 2020-09 Yes [id number] 2{puff} Inhale 2 [facility] (PROAIR 1-09 Puffs ity of HFA) 90 00:00: every 6 [place] mcg/actuati 00 (six) Medical on inhaler hours as Branc h needed for Wheezing or Shortness of Breath. levalbutero 2020-09 Yes [id number] .63mg Inhale [facility] l 0.63 mg/3 1-09 0.63 mg 3 ity of mL 00:00: (three) [place] nebulizer 00 times Medical solution daily as Branch needed for Wheezing or Shortness of Breath. cyclobenzap 2020-09 Yes [id number] TAKE 1 [facility] rine 5 mg 1-09 TABLET BY ity o f tablet 00:00: MOUTH [place] 00 EVERY 8 Medical HOURS Branch NEEDED albuterol 2020-09 Yes [id number] 2{puff} Inhale 2 [facility] (PROAIR 1-09 Puffs ity of HFA) 90 00:00: every 6 [place] mcg/actuati 00 (six) Medical on inhaler hours as Branc h needed for Wheezing or Shortness of Breath. levalbutero 2020-09 Yes [id number] .63mg Inhale [facility] l 0.63 mg/3 1-09 0.63 mg 3 ity of mL 00:00: (three) [place] nebulizer 00 times Medical solution daily as Branch needed for Wheezing or Shortness of Breath. cyclobenzap 2020-09 Yes [id number] TAKE 1 [facility] rine 5 mg 1-09 TABLET BY ity o f tablet 00:00: MOUTH [place] 00 EVERY 8 Medical HOURS Branch NEEDED albuterol 2020-09 Yes [id number] 2{puff} Inhale 2 [facility] (PROAIR 1-09 Puffs ity of HFA) 90 00:00: every 6 [place] mcg/actuati 00 (six) Medical on inhaler hours as Branc h needed for Wheezing or Shortness of Breath. levalbutero 2020-09 Yes [id number] .63mg Inhale [facility] l 0.63 mg/3 1-09 0.63 mg 3 ity of mL 00:00: (three) [place] nebulizer 00 times Medical solution daily as Branch needed for Wheezing or Shortness of Breath. cyclobenzap 2020-09 Yes [id number] TAKE 1 [facility] rine 5 mg 1-09 TABLET BY ity o f tablet 00:00: MOUTH [place] 00 EVERY 8 Medical HOURS Branch NEEDED albuterol 2020-09 Yes [id number] 2{puff} Inhale 2 [facility] (PROAIR 1-09 Puffs ity of HFA) 90 00:00: every 6 [place] mcg/actuati 00 (six) Medical on inhaler hours as Branc h needed for Wheezing or Shortness of Breath. levalbutero 2020-09 Yes [id number] .63mg Inhale [facility] l 0.63 mg/3 1-09 0.63 mg 3 ity of mL 00:00: (three) [place] nebulizer 00 times Medical solution daily as Branch needed for Wheezing or Shortness of Breath. cyclobenzap 2020-09 Yes [id number] TAKE 1 [facility] rine 5 mg 1-09 TABLET BY ity o f tablet 00:00: MOUTH [place] 00 EVERY 8 Medical HOURS Branch NEEDED albuterol 2020-09 Yes [id number] 2{puff} Inhale 2 [facility] (PROAIR 1-09 Puffs ity of HFA) 90 00:00: every 6 [place] mcg/actuati 00 (six) Medical on inhaler hours as Branc h needed for Wheezing or Shortness of Breath. levalbutero 2020-09 Yes [id number] .63mg Inhale [facility] l 0.63 mg/3 1-09 0.63 mg 3 ity of mL 00:00: (three) [place] nebulizer 00 times Medical solution daily as Branch needed for Wheezing or Shortness of Breath. cyclobenzap 2020-09 Yes [id number] TAKE 1 [facility] rine 5 mg 1-09 TABLET BY ity o f tablet 00:00: MOUTH [place] 00 EVERY 8 Medical HOURS Branch NEEDED albuterol 2020-09 Yes [id number] 2{puff} Inhale 2 [facility] (PROAIR 1-09 Puffs ity of HFA) 90 00:00: every 6 [place] mcg/actuati 00 (six) Medical on inhaler hours as Branc h needed for Wheezing or Shortness of Breath. levalbutero 2020-09 Yes [id number] .63mg Inhale [facility] l 0.63 mg/3 1-09 0.63 mg 3 ity of mL 00:00: (three) [place] nebulizer 00 times Medical solution daily as Branch needed for Wheezing or Shortness of Breath. cyclobenzap 2020-09 Yes [id number] TAKE 1 [facility] rine 5 mg 1-09 TABLET BY ity o f tablet 00:00: MOUTH [place] 00 EVERY 8 Medical HOURS Branch NEEDED albuterol 2020-09 Yes [id number] 2{puff} Inhale 2 [facility] (PROAIR 1-09 Puffs ity of HFA) 90 00:00: every 6 [place] mcg/actuati 00 (six) Medical on inhaler hours as Branc h needed for Wheezing or Shortness of Breath. levalbutero 2020-09 Yes [id number] .63mg Inhale [facility] l 0.63 mg/3 1-09 0.63 mg 3 ity of mL 00:00: (three) [place] nebulizer 00 times Medical solution daily as Branch needed for Wheezing or Shortness of Breath. cyclobenzap 2020-09 Yes [id number] TAKE 1 [facility] rine 5 mg 1-09 TABLET BY ity o f tablet 00:00: MOUTH [place] 00 EVERY 8 Medical HOURS Branch NEEDED albuterol 2020-09 Yes [id number] 2{puff} Inhale 2 [facility] (PROAIR 1-09 Puffs ity of HFA) 90 00:00: every 6 [place] mcg/actuati 00 (six) Medical on inhaler hours as Branc h needed for Wheezing or Shortness of Breath. levalbutero 2020-09 Yes [id number] .63mg Inhale [facility] l 0.63 mg/3 1-09 0.63 mg 3 ity of mL 00:00: (three) [place] nebulizer 00 times Medical solution daily as Branch needed for Wheezing or Shortness of Breath. cyclobenzap 2020-09 Yes [id number] TAKE 1 [facility] rine 5 mg 1-09 TABLET BY ity o f tablet 00:00: MOUTH [place] 00 EVERY 8 Medical HOURS Branch NEEDED albuterol 2020-09 Yes [id number] 2{puff} Inhale 2 [facility] (PROAIR 1-09 Puffs ity of HFA) 90 00:00: every 6 [place] mcg/actuati 00 (six) Medical on inhaler hours as Branc h needed for Wheezing or Shortness of Breath. levalbutero 2020-09 Yes [id number] .63mg Inhale [facility] l 0.63 mg/3 1-09 0.63 mg 3 ity of mL 00:00: (three) [place] nebulizer 00 times Medical solution daily as Branch needed for Wheezing or Shortness of Breath. cyclobenzap 2020-09 Yes [id number] TAKE 1 [facility] rine 5 mg 1-09 TABLET BY ity o f tablet 00:00: MOUTH [place] 00 EVERY 8 Medical HOURS Branch NEEDED albuterol 2020-09 Yes [id number] 2{puff} Inhale 2 [facility] (PROAIR 1-09 Puffs ity of HFA) 90 00:00: every 6 [place] mcg/actuati 00 (six) Medical on inhaler hours as Branc h needed for Wheezing or Shortness of Breath. levalbutero 2020-09 Yes [id number] .63mg Inhale [facility] l 0.63 mg/3 1-09 0.63 mg 3 ity of mL 00:00: (three) [place] nebulizer 00 times Medical solution daily as Branch needed for Wheezing or Shortness of Breath. cyclobenzap 2020-09 Yes [id number] TAKE 1 [facility] rine 5 mg 1-09 TABLET BY ity o f tablet 00:00: MOUTH [place] 00 EVERY 8 Medical HOURS Branch NEEDED albuterol 2020-09 Yes [id number] 2{puff} Inhale 2 [facility] (PROAIR 1-09 Puffs ity of HFA) 90 00:00: every 6 [place] mcg/actuati 00 (six) Medical on inhaler hours as Branc h needed for Wheezing or Shortness of Breath. levalbutero 2020-09 Yes [id number] .63mg Inhale [facility] l 0.63 mg/3 1-09 0.63 mg 3 ity of mL 00:00: (three) [place] nebulizer 00 times Medical solution daily as Branch needed for Wheezing or Shortness of Breath. cyclobenzap 2020-09 Yes [id number] TAKE 1 [facility] rine 5 mg 1-09 TABLET BY ity o f tablet 00:00: MOUTH [place] 00 EVERY 8 Medical HOURS Branch NEEDED albuterol 2020-09 Yes [id number] 2{puff} Inhale 2 [facility] (PROAIR 1-09 Puffs ity of HFA) 90 00:00: every 6 [place] mcg/actuati 00 (six) Medical on inhaler hours as Branc h needed for Wheezing or Shortness of Breath. levalbutero 2020-09 Yes [id number] .63mg Inhale [facility] l 0.63 mg/3 1-09 0.63 mg 3 ity of mL 00:00: (three) [place] nebulizer 00 times Medical solution daily as Branch needed for Wheezing or Shortness of Breath. cyclobenzap 2020-09 Yes [id number] TAKE 1 [facility] rine 5 mg 1-09 TABLET BY ity o f tablet 00:00: MOUTH [place] 00 EVERY 8 Medical HOURS Branch NEEDED albuterol 2020-09 Yes [id number] 2{puff} Inhale 2 [facility] (PROAIR 1-09 Puffs ity of HFA) 90 00:00: every 6 [place] mcg/actuati 00 (six) Medical on inhaler hours as Branc h needed for Wheezing or Shortness of Breath. levalbutero 2020-09 Yes [id number] .63mg Inhale [facility] l 0.63 mg/3 1-09 0.63 mg 3 ity of mL 00:00: (three) [place] nebulizer 00 times Medical solution daily as Branch needed for Wheezing or Shortness of Breath. cyclobenzap 2020-09 Yes [id number] TAKE 1 [facility] rine 5 mg 1-09 TABLET BY ity o f tablet 00:00: MOUTH [place] 00 EVERY 8 Medical HOURS Branch NEEDED albuterol 2020-09 Yes [id number] 2{puff} Inhale 2 [facility] (PROAIR 1-09 Puffs ity of HFA) 90 00:00: every 6 [place] mcg/actuati 00 (six) Medical on inhaler hours as Branc h needed for Wheezing or Shortness of Breath. levalbutero 2020-09 Yes [id number] .63mg Inhale [facility] l 0.63 mg/3 1-09 0.63 mg 3 ity of mL 00:00: (three) [place] nebulizer 00 times Medical solution daily as Branch needed for Wheezing or Shortness of Breath. cyclobenzap 2020-09 Yes [id number] TAKE 1 [facility] rine 5 mg 1-09 TABLET BY ity o f tablet 00:00: MOUTH [place] 00 EVERY 8 Medical HOURS Branch NEEDED albuterol 2020-09 Yes [id number] 2{puff} Inhale 2 [facility] (PROAIR 1-09 Puffs ity of HFA) 90 00:00: every 6 [place] mcg/actuati 00 (six) Medical on inhaler hours as Branc h needed for Wheezing or Shortness of Breath. levalbutero 2020-09 Yes [id number] .63mg Inhale [facility] l 0.63 mg/3 1-09 0.63 mg 3 ity of mL 00:00: (three) [place] nebulizer 00 times Medical solution daily as Branch needed for Wheezing or Shortness of Breath. cyclobenzap 2020-09 Yes [id number] TAKE 1 [facility] rine 5 mg 1-09 TABLET BY ity o f tablet 00:00: MOUTH [place] 00 EVERY 8 Medical HOURS Branch NEEDED albuterol 2020-09 Yes [id number] 2{puff} Inhale 2 [facility] (PROAIR 1-09 Puffs ity of HFA) 90 00:00: every 6 [place] mcg/actuati 00 (six) Medical on inhaler hours as Branc h needed for Wheezing or Shortness of Breath. levalbutero 2020-09 Yes [id number] .63mg Inhale [facility] l 0.63 mg/3 1-09 0.63 mg 3 ity of mL 00:00: (three) [place] nebulizer 00 times Medical solution daily as Branch needed for Wheezing or Shortness of Breath. albuterol 2020-09 Yes [id number] 2{puff} Inhale 2 [facility] (PROAIR 1-09 Puffs ity of HFA) 90 00:00: every 6 [place] mcg/actuati 00 (six) Medical on inhaler hours as Branc h needed for Wheezing or Shortness of Breath. levalbutero 2020-09 Yes [id number] .63mg Inhale [facility] l 0.63 mg/3 1-09 0.63 mg 3 ity of mL 00:00: (three) [place] nebulizer 00 times Medical solution daily as Branch needed for Wheezing or Shortness of Breath. albuterol 2020-09 Yes [id number] 2{puff} Inhale 2 [facility] (PROAIR 1-09 Puffs ity of HFA) 90 00:00: every 6 [place] mcg/actuati 00 (six) Medical on inhaler hours as Branc h needed for Wheezing or Shortness of Breath. levalbutero 2020-09 Yes [id number] .63mg Inhale [facility] l 0.63 mg/3 1-09 0.63 mg 3 ity of mL 00:00: (three) [place] nebulizer 00 times Medical solution daily as Branch needed for Wheezing or Shortness of Breath. albuterol 2020-09 Yes [id number] 2{puff} Inhale 2 [facility] (PROAIR 1-09 Puffs ity of HFA) 90 00:00: every 6 [place] mcg/actuati 00 (six) Medical on inhaler hours as Branc h needed for Wheezing or Shortness of Breath. levalbutero 2020-09 Yes [id number] .63mg Inhale [facility] l 0.63 mg/3 1-09 0.63 mg 3 ity of mL 00:00: (three) [place] nebulizer 00 times Medical solution daily as Branch needed for Wheezing or Shortness of Breath. albuterol 2020-09 Yes [id number] 2{puff} Inhale 2 [facility] (PROAIR 1-09 Puffs ity of HFA) 90 00:00: every 6 [place] mcg/actuati 00 (six) Medical on inhaler hours as Branc h needed for Wheezing or Shortness of Breath. levalbutero 2020-09 Yes [id number] .63mg Inhale [facility] l 0.63 mg/3 1-09 0.63 mg 3 ity of mL 00:00: (three) [place] nebulizer 00 times Medical solution daily as Branch needed for Wheezing or Shortness of Breath. albuterol 2020-09 Yes [id number] 2{puff} Inhale 2 [facility] (PROAIR 1-09 Puffs ity of HFA) 90 00:00: every 6 [place] mcg/actuati 00 (six) Medical on inhaler hours as Branc h needed for Wheezing or Shortness of Breath. rosuvastati 2020-09 Yes [id number] 10mg Take 1 [facility] n 10 mg 1-09 tablet by ity of tablet 00:00: mouth at [place] 00 bedtime. Medical Branch cyanocobala 2020-09 Yes [id number] 1000ug 1 mL by [facility] min 1,000 1-09 Intramuscu ity of mcg/mL 00:00: lar route [place] injection 00 every 2 Medical (two) Branch weeks. levothyroxi 2020-09 Yes [id number] 50ug Take 1 [facility] ne 50 mcg 1-09 tablet by ity o f tablet 00:00: mouth [place] 00 every Medical morning. Branch fluticasone 2020-09 Yes [id number] 2{puff} Inhale 2 [facility] propionate 1-09 Puffs ity of (FLOVENT 00:00: every 12 [place] HFA) 110 00 (twelve) Medical mcg/actuati hours. Branch on inhaler Rinse mouth after each use. levalbutero 2020-09 Yes [id number] .63mg Inhale [facility] l 0.63 mg/3 1-09 0.63 mg 3 ity of mL 00:00: (three) [place] nebulizer 00 times Medical solution daily as Branch needed for Wheezing or Shortness of Breath. losartan 50 2020-09 Yes [id number] 50mg Take 1 [facility] mg tablet 1-09 tablet by ity o f 00:00: mouth 2 [place] 00 (two) Medical times Branch daily. clotrimazol 2020-09 Yes [id number] Apply to [facility] e-betametha 10-04 area(s) 2 ity of sone cream 00:00: (two) [place] 00 times Medical daily. Branch cyclobenzap 2020-09 Yes [id number] TAKE 1 [facility] rine 5 mg - TABLET BY ity o f tablet 00:00: MOUTH [place] 00 EVERY 8 Medical HOURS Branch NEEDED econazole 2020-09 Yes [id number] Apply to [facility] nitrate 1 % 10-04 area(s) 2 ity of cream 00:00: (two) [place] 00 times Medical daily. Branch albuterol 2020-09 Yes [id number] 2{puff} Inhale 2 [facility] (PROAIR 1-09 Puffs ity of HFA) 90 00:00: every 6 [place] mcg/actuati 00 (six) Medical on inhaler hours as Branc h needed for Wheezing or Shortness of Breath. triamcinolo 2020-09 Yes [id number] Apply to [facility] ne 0.025 % 10-04 area(s) 3 ity of ointment 00:00: (three) [place] 00 times Medical daily. For Branch itching diltiazem 2020-09 Yes [id number] 120mg Take 1 [facility] (CARTIA XT) 10-04 capsule by it y of 120 mg 24 00:00: mouth 2 [place] hr capsule 00 (two) Medical times Branch daily. rosuvastati 2020-09 Yes [id number] 10mg Take 1 [facility] n 10 mg 10-04 tablet by ity of tablet 00:00: mouth at [place] 00 bedtime. Medical Branch cyanocobala 2020-09 Yes [id number] 1000ug 1 mL by [facility] min 1,000 -09 Intramuscu ity of mcg/mL 00:00: lar route [place] injection 00 every 2 Medical (two) Branch weeks. levothyroxi 2020-09 Yes [id number] 50ug Take 1 [facility] ne 50 mcg - tablet by ity o f tablet 00:00: mouth [place] 00 every Medical morning. Branch fluticasone 2020-09 Yes [id number] 2{puff} Inhale 2 [facility] propionate 1-09 Puffs ity of (FLOVENT 00:00: every 12 [place] HFA) 110 00 (twelve) Medical mcg/actuati hours. Branch on inhaler Rinse mouth after each use. levalbutero 2020-09 Yes [id number] .63mg Inhale [facility] l 0.63 mg/3 1-09 0.63 mg 3 ity of mL 00:00: (three) [place] nebulizer 00 times Medical solution daily as Branch needed for Wheezing or Shortness of Breath. losartan 50 2020-09 Yes [id number] 50mg Take 1 [facility] mg tablet -09 tablet by ity o f 00:00: mouth 2 [place] 00 (two) Medical times Branch daily. clotrimazol 2020-09 Yes [id number] Apply to [facility] e-betametha 09 area(s) 2 ity of sone cream 00:00: (two) [place] 00 times Medical daily. Branch cyclobenzap 2020-09 Yes [id number] TAKE 1 [facility] rine 5 mg -09 TABLET BY ity o f tablet 00:00: MOUTH [place] 00 EVERY 8 Medical HOURS Branch NEEDED econazole 2020-09 Yes [id number] Apply to [facility] nitrate 1 % 09 area(s) 2 ity of cream 00:00: (two) [place] 00 times Medical daily. Branch albuterol 2020-09 Yes [id number] 2{puff} Inhale 2 [facility] (PROAIR 1-09 Puffs ity of HFA) 90 00:00: every 6 [place] mcg/actuati 00 (six) Medical on inhaler hours as Branc h needed for Wheezing or Shortness of Breath. triamcinolo 2020-09 Yes [id number] Apply to [facility] ne 0.025 % 10-04 area(s) 3 ity of ointment 00:00: (three) [place] 00 times Medical daily. For Branch itching diltiazem 2020-09 Yes [id number] 120mg Take 1 [facility] (CARTIA XT) -09 capsule by it y of 120 mg 24 00:00: mouth 2 [place] hr capsule 00 (two) Medical times Branch daily. cyanocobala 2020-09 Yes [id number] 1000ug 1 mL by [facility] min 1,000 -09 Intramuscu ity of mcg/mL 00:00: lar route [place] injection 00 every 2 Medical (two) Branch weeks. levothyroxi 2020-09 Yes [id number] 50ug Take 1 [facility] ne 50 mcg 1-09 tablet by ity o f tablet 00:00: mouth [place] 00 every Medical morning. Branch fluticasone 2020-09 Yes [id number] 2{puff} Inhale 2 [facility] propionate 1-09 Puffs ity of (FLOVENT 00:00: every 12 [place] HFA) 110 00 (twelve) Medical mcg/actuati hours. Branch on inhaler Rinse mouth after each use. levalbutero 2020-09 Yes [id number] .63mg Inhale [facility] l 0.63 mg/3 1-09 0.63 mg 3 ity of mL 00:00: (three) [place] nebulizer 00 times Medical solution daily as Branch needed for Wheezing or Shortness of Breath. losartan 50 2020-09 Yes [id number] 50mg Take 1 [facility] mg tablet -09 tablet by ity o f 00:00: mouth 2 [place] 00 (two) Medical times Branch daily. clotrimazol 2020-09 Yes [id number] Apply to [facility] e-betametha -09 area(s) 2 ity of sone cream 00:00: (two) [place] 00 times Medical daily. Branch cyclobenzap 2020-09 Yes [id number] TAKE 1 [facility] rine 5 mg -09 TABLET BY ity o f tablet 00:00: MOUTH [place] 00 EVERY 8 Medical HOURS Branch NEEDED econazole 2020-09 Yes [id number] Apply to [facility] nitrate 1 % 10-04 area(s) 2 ity of cream 00:00: (two) [place] 00 times Medical daily. Branch albuterol 2020-09 Yes [id number] 2{puff} Inhale 2 [facility] (PROAIR 1-09 Puffs ity of HFA) 90 00:00: every 6 [place] mcg/actuati 00 (six) Medical on inhaler hours as Branc h needed for Wheezing or Shortness of Breath. triamcinolo 2020-09 Yes [id number] Apply to [facility] ne 0.025 % -09 area(s) 3 ity of ointment 00:00: (three) [place] 00 times Medical daily. For Branch itching diltiazem 2020-09 Yes [id number] 120mg Take 1 [facility] (CARTIA XT) -09 capsule by it y of 120 mg 24 00:00: mouth 2 [place] hr capsule 00 (two) Medical times Branch daily. cyanocobala 2020-09 Yes [id number] 1000ug 1 mL by [facility] min 1,000 1-09 Intramuscu ity of mcg/mL 00:00: lar route [place] injection 00 every 2 Medical (two) Branch weeks. levothyroxi 2020-09 Yes [id number] 50ug Take 1 [facility] ne 50 mcg 1-09 tablet by ity o f tablet 00:00: mouth [place] 00 every Medical morning. Branch fluticasone 2020-09 Yes [id number] 2{puff} Inhale 2 [facility] propionate 1-09 Puffs ity of (FLOVENT 00:00: every 12 [place] HFA) 110 00 (twelve) Medical mcg/actuati hours. Branch on inhaler Rinse mouth after each use. levalbutero 2020-09 Yes [id number] .63mg Inhale [facility] l 0.63 mg/3 1-09 0.63 mg 3 ity of mL 00:00: (three) [place] nebulizer 00 times Medical solution daily as Branch needed for Wheezing or Shortness of Breath. losartan 50 2020-09 Yes [id number] 50mg Take 1 [facility] mg tablet 1-09 tablet by ity o f 00:00: mouth 2 [place] 00 (two) Medical times Branch daily. clotrimazol 2020-09 Yes [id number] Apply to [facility] e-betametha 09 area(s) 2 ity of sone cream 00:00: (two) [place] 00 times Medical daily. Branch cyclobenzap 2020-09 Yes [id number] TAKE 1 [facility] rine 5 mg 1-09 TABLET BY ity o f tablet 00:00: MOUTH [place] 00 EVERY 8 Medical HOURS Branch NEEDED econazole 2020-09 Yes [id number] Apply to [facility] nitrate 1 % 09 area(s) 2 ity of cream 00:00: (two) [place] 00 times Medical daily. Branch albuterol 2020-09 Yes [id number] 2{puff} Inhale 2 [facility] (PROAIR 1-09 Puffs ity of HFA) 90 00:00: every 6 [place] mcg/actuati 00 (six) Medical on inhaler hours as Branc h needed for Wheezing or Shortness of Breath. triamcinolo 2020-09 Yes [id number] Apply to [facility] ne 0.025 % 10-04 area(s) 3 ity of ointment 00:00: (three) [place] 00 times Medical daily. For Branch itching diltiazem 2020-09 Yes [id number] 120mg Take 1 [facility] (CARTIA XT) 10-04 capsule by it y of 120 mg 24 00:00: mouth 2 [place] hr capsule 00 (two) Medical times Branch daily. cyanocobala 2020-09 Yes [id number] 1000ug 1 mL by [facility] min 1,000 09 Intramuscu ity of mcg/mL 00:00: lar route [place] injection 00 every 2 Medical (two) Branch weeks. levothyroxi 2020-09 Yes [id number] 50ug Take 1 [facility] ne 50 mcg 10-04 tablet by ity o f tablet 00:00: mouth [place] 00 every Medical morning. Branch fluticasone 2020-09 Yes [id number] 2{puff} Inhale 2 [facility] propionate -09 Puffs ity of (FLOVENT 00:00: every 12 [place] HFA) 110 00 (twelve) Medical mcg/actuati hours. Branch on inhaler Rinse mouth after each use. levalbutero 2020-09 Yes [id number] .63mg Inhale [facility] l 0.63 mg/3 -09 0.63 mg 3 ity of mL 00:00: (three) [place] nebulizer 00 times Medical solution daily as Branch needed for Wheezing or Shortness of Breath. losartan 50 2020-09 Yes [id number] 50mg Take 1 [facility] mg tablet 10-04 tablet by ity o f 00:00: mouth 2 [place] 00 (two) Medical times Branch daily. clotrimazol 2020-09 Yes [id number] Apply to [facility] e-betametha 09 area(s) 2 ity of sone cream 00:00: (two) [place] 00 times Medical daily. Branch cyclobenzap 2020-09 Yes [id number] TAKE 1 [facility] rine 5 mg -09 TABLET BY ity o f tablet 00:00: MOUTH [place] 00 EVERY 8 Medical HOURS Branch NEEDED econazole 2020-09 Yes [id number] Apply to [facility] nitrate 1 % 10-04 area(s) 2 ity of cream 00:00: (two) [place] 00 times Medical daily. Branch albuterol 2020-09 Yes [id number] 2{puff} Inhale 2 [facility] (PROAIR 1-09 Puffs ity of HFA) 90 00:00: every 6 [place] mcg/actuati 00 (six) Medical on inhaler hours as Branc h needed for Wheezing or Shortness of Breath. triamcinolo 2020-09 Yes [id number] Apply to [facility] ne 0.025 % 1-09 area(s) 3 ity of ointment 00:00: (three) [place] 00 times Medical daily. For Branch itching diltiazem 2020-09 Yes [id number] 120mg Take 1 [facility] (CARTIA XT) -09 capsule by it y of 120 mg 24 00:00: mouth 2 [place] hr capsule 00 (two) Medical times Branch daily. cyanocobala 2020-09 Yes [id number] 1000ug 1 mL by [facility] min 1,000 1-09 Intramuscu ity of mcg/mL 00:00: lar route [place] injection 00 every 2 Medical (two) Branch weeks. levothyroxi 2020-09 Yes [id number] 50ug Take 1 [facility] ne 50 mcg 1-09 tablet by ity o f tablet 00:00: mouth [place] 00 every Medical morning. Branch fluticasone 2020-09 Yes [id number] 2{puff} Inhale 2 [facility] propionate 1-09 Puffs ity of (FLOVENT 00:00: every 12 [place] HFA) 110 00 (twelve) Medical mcg/actuati hours. Branch on inhaler Rinse mouth after each use. levalbutero 2020-09 Yes [id number] .63mg Inhale [facility] l 0.63 mg/3 1-09 0.63 mg 3 ity of mL 00:00: (three) [place] nebulizer 00 times Medical solution daily as Branch needed for Wheezing or Shortness of Breath. losartan 50 2020-09 Yes [id number] 50mg Take 1 [facility] mg tablet 1-09 tablet by ity o f 00:00: mouth 2 [place] 00 (two) Medical times Branch daily. clotrimazol 2020-09 Yes [id number] Apply to [facility] e-betametha 1-09 area(s) 2 ity of sone cream 00:00: (two) [place] 00 times Medical daily. Branch cyclobenzap 2020-09 Yes [id number] TAKE 1 [facility] rine 5 mg 1-09 TABLET BY ity o f tablet 00:00: MOUTH [place] 00 EVERY 8 Medical HOURS Branch NEEDED econazole 2020-09 Yes [id number] Apply to [facility] nitrate 1 % 1-09 area(s) 2 ity of cream 00:00: (two) [place] 00 times Medical daily. Branch albuterol 2020-09 Yes [id number] 2{puff} Inhale 2 [facility] (PROAIR 1-09 Puffs ity of HFA) 90 00:00: every 6 [place] mcg/actuati 00 (six) Medical on inhaler hours as Branc h needed for Wheezing or Shortness of Breath. triamcinolo 2020-09 Yes [id number] Apply to [facility] ne 0.025 % -09 area(s) 3 ity of ointment 00:00: (three) [place] 00 times Medical daily. For Branch itching diltiazem 2020-09 Yes [id number] 120mg Take 1 [facility] (CARTIA XT) 1-09 capsule by it y of 120 mg 24 00:00: mouth 2 [place] hr capsule 00 (two) Medical times Branch daily. cyanocobala 2020-09 Yes [id number] 1000ug 1 mL by [facility] min 1,000 1-09 Intramuscu ity of mcg/mL 00:00: lar route [place] injection 00 every 2 Medical (two) Branch weeks. levothyroxi 2020-09 Yes [id number] 50ug Take 1 [facility] ne 50 mcg 1-09 tablet by ity o f tablet 00:00: mouth [place] 00 every Medical morning. Branch fluticasone 2020-09 Yes [id number] 2{puff} Inhale 2 [facility] propionate 1-09 Puffs ity of (FLOVENT 00:00: every 12 [place] HFA) 110 00 (twelve) Medical mcg/actuati hours. Branch on inhaler Rinse mouth after each use. levalbutero 2020-09 Yes [id number] .63mg Inhale [facility] l 0.63 mg/3 1-09 0.63 mg 3 ity of mL 00:00: (three) [place] nebulizer 00 times Medical solution daily as Branch needed for Wheezing or Shortness of Breath. losartan 50 2020-09 Yes [id number] 50mg Take 1 [facility] mg tablet 1-09 tablet by ity o f 00:00: mouth 2 [place] 00 (two) Medical times Branch daily. clotrimazol 2020-09 Yes [id number] Apply to [facility] e-betametha 10-04 area(s) 2 ity of sone cream 00:00: (two) [place] 00 times Medical daily. Branch cyclobenzap 2020-09 Yes [id number] TAKE 1 [facility] rine 5 mg -09 TABLET BY ity o f tablet 00:00: MOUTH [place] 00 EVERY 8 Medical HOURS Branch NEEDED econazole 2020-09 Yes [id number] Apply to [facility] nitrate 1 % 10-04 area(s) 2 ity of cream 00:00: (two) [place] 00 times Medical daily. Branch albuterol 2020-09 Yes [id number] 2{puff} Inhale 2 [facility] (PROAIR 1-09 Puffs ity of HFA) 90 00:00: every 6 [place] mcg/actuati 00 (six) Medical on inhaler hours as Branc h needed for Wheezing or Shortness of Breath. triamcinolo 2020-09 Yes [id number] Apply to [facility] ne 0.025 % 10-04 area(s) 3 ity of ointment 00:00: (three) [place] 00 times Medical daily. For Branch itching diltiazem 2020-09 Yes [id number] 120mg Take 1 [facility] n[facility] (CARTIA XT) 10-04 capsule by it y of 120 mg 24 00:00: mouth 2 [place] hr capsule 00 (two) Medical times Branch daily. cyanocobala 2020-09 Yes [id number] 1000ug 1 mL by [facility] min 1,000 09 Intramuscu ity of mcg/mL 00:00: lar route [place] injection 00 every 2 Medical (two) Branch weeks. levothyroxi 2020-09 Yes [id number] 50ug Take 1 [facility] ne 50 mcg 09 tablet by ity o f tablet 00:00: mouth [place] 00 every Medical morning. Branch fluticasone 2020-09 Yes [id number] 2{puff} Inhale 2 [facility] propionate 1-09 Puffs ity of (FLOVENT 00:00: every 12 [place] HFA) 110 00 (twelve) Medical mcg/actuati hours. Branch on inhaler Rinse mouth after each use. levalbutero 2020-09 Yes [id number] .63mg Inhale [facility] l 0.63 mg/3 1-09 0.63 mg 3 ity of mL 00:00: (three) [place] nebulizer 00 times Medical solution daily as Branch needed for Wheezing or Shortness of Breath. losartan 50 2020-09 Yes [id number] 50mg Take 1 [facility] mg tablet -09 tablet by ity o f 00:00: mouth 2 [place] 00 (two) Medical times Branch daily. clotrimazol 2020-09 Yes [id number] Apply to [facility] e-betametha 09 area(s) 2 ity of sone cream 00:00: (two) [place] 00 times Medical daily. Branch cyclobenzap 2020-09 Yes [id number] TAKE 1 [facility] rine 5 mg 09 TABLET BY ity o f tablet 00:00: MOUTH [place] 00 EVERY 8 Medical HOURS Branch NEEDED econazole 2020-09 Yes [id number] Apply to [facility] nitrate 1 % 10-04 area(s) 2 ity of cream 00:00: (two) [place] 00 times Medical daily. Branch albuterol 2020-09 Yes [id number] 2{puff} Inhale 2 [facility] (PROAIR -09 Puffs ity of HFA) 90 00:00: every 6 [place] mcg/actuati 00 (six) Medical on inhaler hours as Branc h needed for Wheezing or Shortness of Breath. triamcinolo 2020-09 Yes [id number] Apply to [facility] ne 0.025 % 10-04 area(s) 3 ity of ointment 00:00: (three) [place] 00 times Medical daily. For Branch itching diltiazem 2020-09 Yes [id number] 120mg Take 1 [facility] (CARTIA XT) 09 capsule by it y of 120 mg 24 00:00: mouth 2 [place] hr capsule 00 (two) Medical times Branch daily. cyanocobala 2020-09 Yes [id number] 1000ug 1 mL by [facility] min 1,000 -09 Intramuscu ity of mcg/mL 00:00: lar route [place] injection 00 every 2 Medical (two) Branch weeks. levothyroxi 2020-09 Yes [id number] 50ug Take 1 [facility] ne 50 mcg -09 tablet by ity o f tablet 00:00: mouth [place] 00 every Medical morning. Branch fluticasone 2020-09 Yes [id number] 2{puff} Inhale 2 [facility] propionate 1-09 Puffs ity of (FLOVENT 00:00: every 12 [place] HFA) 110 00 (twelve) Medical mcg/actuati hours. Branch on inhaler Rinse mouth after each use. levalbutero 2020-09 Yes [id number] .63mg Inhale [facility] l 0.63 mg/3 1-09 0.63 mg 3 ity of mL 00:00: (three) [place] nebulizer 00 times Medical solution daily as Branch needed for Wheezing or Shortness of Breath. losartan 50 2020-09 Yes [id number] 50mg Take 1 [facility] mg tablet -09 tablet by ity o f 00:00: mouth 2 [place] 00 (two) Medical times Branch daily. clotrimazol 2020-09 Yes [id number] Apply to [facility] e-betametha -09 area(s) 2 ity of sone cream 00:00: (two) [place] 00 times Medical daily. Branch cyclobenzap 2020-09 Yes [id number] TAKE 1 [facility] rine 5 mg -09 TABLET BY ity o f tablet 00:00: MOUTH [place] 00 EVERY 8 Medical HOURS Branch NEEDED econazole 2020-09 Yes [id number] Apply to [facility] nitrate 1 % 09 area(s) 2 ity of cream 00:00: (two) [place] 00 times Medical daily. Branch albuterol 2020-09 Yes [id number] 2{puff} Inhale 2 [facility] (PROAIR 1-09 Puffs ity of HFA) 90 00:00: every 6 [place] mcg/actuati 00 (six) Medical on inhaler hours as Branc h needed for Wheezing or Shortness of Breath. triamcinolo 2020-09 Yes [id number] Apply to [facility] ne 0.025 % -09 area(s) 3 ity of ointment 00:00: (three) [place] 00 times Medical daily. For Branch itching diltiazem 2020-09 Yes [id number] 120mg Take 1 [facility] n[facility] (CARTIA XT) -09 capsule by it y of 120 mg 24 00:00: mouth 2 [place] hr capsule 00 (two) Medical times Branch daily. cyanocobala 2020-09 Yes [id number] 1000ug 1 mL by [facility] min 1,000 1-09 Intramuscu ity of mcg/mL 00:00: lar route [place] injection 00 every 2 Medical (two) Branch weeks. levothyroxi 2020-09 Yes [id number] 50ug Take 1 [facility] ne 50 mcg 1-09 tablet by ity o f tablet 00:00: mouth [place] 00 every Medical morning. Branch fluticasone 2020-09 Yes [id number] 2{puff} Inhale 2 [facility] propionate 1-09 Puffs ity of (FLOVENT 00:00: every 12 [place] HFA) 110 00 (twelve) Medical mcg/actuati hours. Branch on inhaler Rinse mouth after each use. levalbutero 2020-09 Yes [id number] .63mg Inhale [facility] l 0.63 mg/3 1-09 0.63 mg 3 ity of mL 00:00: (three) [place] nebulizer 00 times Medical solution daily as Branch needed for Wheezing or Shortness of Breath. losartan 50 2020-09 Yes [id number] 50mg Take 1 [facility] mg tablet 1-09 tablet by ity o f 00:00: mouth 2 [place] 00 (two) Medical times Branch daily. clotrimazol 2020-09 Yes [id number] Apply to [facility] e-betametha -09 area(s) 2 ity of sone cream 00:00: (two) [place] 00 times Medical daily. Branch cyclobenzap 2020-09 Yes [id number] TAKE 1 [facility] rine 5 mg -09 TABLET BY ity o f tablet 00:00: MOUTH [place] 00 EVERY 8 Medical HOURS Branch NEEDED econazole 2020-09 Yes [id number] Apply to [facility] nitrate 1 % 10-04 area(s) 2 ity of cream 00:00: (two) [place] 00 times Medical daily. Branch albuterol 2020-09 Yes [id number] 2{puff} Inhale 2 [facility] (PROAIR 1-09 Puffs ity of HFA) 90 00:00: every 6 [place] mcg/actuati 00 (six) Medical on inhaler hours as Branc h needed for Wheezing or Shortness of Breath. triamcinolo 2020-09 Yes [id number] Apply to [facility] ne 0.025 % 1-09 area(s) 3 ity of ointment 00:00: (three) [place] 00 times Medical daily. For Branch itching diltiazem 2020-09 Yes [id number] 120mg Take 1 [facility] n[facility] (CARTIA XT) -09 capsule by it y of 120 mg 24 00:00: mouth 2 [place] hr capsule 00 (two) Medical times Branch daily. cyanocobala 2020-09 Yes [id number] 1000ug 1 mL by [facility] min 1,000 1-09 Intramuscu ity of mcg/mL 00:00: lar route [place] injection 00 every 2 Medical (two) Branch weeks. levothyroxi 2020-09 Yes [id number] 50ug Take 1 [facility] ne 50 mcg 1-09 tablet by ity o f tablet 00:00: mouth [place] 00 every Medical morning. Branch fluticasone 2020-09 Yes [id number] 2{puff} Inhale 2 [facility] propionate 1-09 Puffs ity of (FLOVENT 00:00: every 12 [place] HFA) 110 00 (twelve) Medical mcg/actuati hours. Branch on inhaler Rinse mouth after each use. levalbutero 2020-09 Yes [id number] .63mg Inhale [facility] l 0.63 mg/3 1-09 0.63 mg 3 ity of mL 00:00: (three) [place] nebulizer 00 times Medical solution daily as Branch needed for Wheezing or Shortness of Breath. losartan 50 2020-09 Yes [id number] 50mg Take 1 [facility] mg tablet -09 tablet by ity o f 00:00: mouth 2 [place] 00 (two) Medical times Branch daily. clotrimazol 2020-09 Yes [id number] Apply to [facility] e-betametha 10-04 area(s) 2 ity of sone cream 00:00: (two) [place] 00 times Medical daily. Branch cyclobenzap 2020-09 Yes [id number] TAKE 1 [facility] rine 5 mg -09 TABLET BY ity o f tablet 00:00: MOUTH [place] 00 EVERY 8 Medical HOURS Branch NEEDED econazole 2020-09 Yes [id number] Apply to [facility] nitrate 1 % 09 area(s) 2 ity of cream 00:00: (two) [place] 00 times Medical daily. Branch albuterol 2020-09 Yes [id number] 2{puff} Inhale 2 [facility] (PROAIR 1-09 Puffs ity of HFA) 90 00:00: every 6 [place] mcg/actuati 00 (six) Medical on inhaler hours as Branc h needed for Wheezing or Shortness of Breath. triamcinolo 2020-09 Yes [id number] Apply to [facility] ne 0.025 % 10-04 area(s) 3 ity of ointment 00:00: (three) [place] 00 times Medical daily. For Branch itching diltiazem 2020-09 Yes [id number] 120mg Take 1 U nivers (CARTIA XT) 10-04 capsule by it y of 120 mg 24 00:00: mouth 2 [place] hr capsule 00 (two) Medical times Branch daily. cyclobenzap 2020-09- No [id number] TAKE 1 [facility] rine 5 mg 10-04 TABLET BY ity of tablet 00:00: 00:00 MOUTH [place] 00 :00 EVERY 8 Medical HOURS Branch NEEDED cyclobenzap 2020-09- No [id number] TAKE 1 [facility] rine 5 mg 10-04 TABLET BY ity of tablet 00:00: 00:00 MOUTH [place] 00 :00 EVERY 8 Medical HOURS Branch NEEDED cyclobenzap 2020-09- No [id number] TAKE 1 [facility] rine 5 mg 10-04 TABLET BY ity of tablet 00:00: 00:00 MOUTH [place] 00 :00 EVERY 8 Medical HOURS Branch NEEDED cyanocobala 2020-09- No [id number] 1000ug 1 mL by [facility] min 1,000 10-04 Intramuscu ity of mcg/mL 00:00: 00:00 lar route [place] injection 00 :00 every 2 Medical (two) Branch weeks. fluticasone 2020-09- No [id number] 2{puff} Inhale 2 [facility] propionate 10-04 Puffs ity of (FLOVENT 00:00: 00:00 every 12 [place] HFA[place] 110 00 :00 (twelve) Medical mcg/actuati hours. Branch on inhaler Rinse mouth after each use. clotrimazol 2020-09- No [id number] Apply to [facility] e-betametha 10-04 area(s) 2 it y of sone cream 00:00: 00:00 (two) [place] 00 :00 times Medical daily. Branch econazole 2020-09- No [id number] Apply to [facility] nitrate 1 % 10-04 area(s) 2 it y of cream 00:00: 00:00 (two) [place] 00 :00 times Medical daily. Branch triamcinolo 2020-09- No [id number] Apply to [facility] ne 0.025 % 10-04 area(s) 3 ity of ointment 00:00: 00:00 (three) [place] 00 :00 times Medical daily. For Branch itching fluticasone 2020-09- No [id number] 2{puff} Inhale 2 [facility] propionate 10-04 Puffs ity of (FLOVENT 00:00: 00:00 every 12 [place] HFA[place] 110 00 :00 (twelve) Medical mcg/actuati hours. Branch on inhaler Rinse mouth after each use. clotrimazol 2020-09- No [id number] Apply to [facility] e-betametha 10-04 area(s) 2 it y of sone cream 00:00: 00:00 (two) [place] 00 :00 times Medical daily. Branch econazole 2020-09- No [id number] Apply to [facility] nitrate 1 % 10-04 area(s) 2 it y of cream 00:00: 00:00 (two) [place] 00 :00 times Medical daily. Branch triamcinolo 2020-09- No [id number] Apply to [facility] ne 0.025 % 10-04 area(s) 3 ity of ointment 00:00: 00:00 (three) [place] 00 :00 times Medical daily. For Branch itching levothyroxi 2020-09- No [id number] 50ug Take 1 [facility] ne 50 mcg 10-04 tablet by ity of tablet 00:00: 00:00 mouth [place] 00 :00 every Medical morning. Branch losartan 50 2020-09- No [id number] 50mg Take 1 [facility] mg tablet 10-04 tablet by ity of 00:00: 00:00 mouth 2 [place] 00 :00 (two) Medical times Branch daily. diltiazem 2020-09- No [id number] 120mg Take 1 [facility] (CARTIA XT) 10-04 capsule by i ty of 120 mg 24 00:00: 00:00 mouth 2 [place] hr capsule 00 :00 (two) Medical times Branch daily. rosuvastati 2020-09- No [id number] 10mg Take 1 [facility] n 10 mg 10-0408 tablet by ity of tablet 00:00: 00:00 mouth at [place] 00 :00 bedtime. Medical Branch rosuvastati 2020-09- No [id number] 10mg Take 1 [facility] n 10 mg [...] Tab 00:00: [place] 00 Medical Branch Ginkgo 2018-0 Yes [facility] [place] 120 -16 ity of mg Tab 00:00: [place] 00 Medical Branch Ginkgo 2019-0 2022- No [facility] [place] 120 16 10-19 ity of mg Tab 00:00: 00:00 [place] 00 :00 Medical Branch Ginkgo 2019-0 2022- No [facility] [place] 120 10-11 ity of mg Tab 00:00: 00:00 [place] 00 :00 Medical Branch Ginkgo 2019-0 2022- No [facility] [place] 120 16 10-19 ity of mg Tab 00:00: 00:00 [place] 00 :00 Medical Branch FERROUS Yes [id number] TAKE ONE Uni vers SULFATE 325 8-13 TABLET BY ity of mg (65 mg 00:00: MOUTH [place] iron) 00 THREE Medical tablet TIMES Branch DAILY WITH MEALS FERROUS Yes [id number] TAKE ONE [facility] vers SULFATE 325 8-13 TABLET BY ity of mg (65 mg 00:00: MOUTH [place] iron) 00 THREE Medical tablet TIMES Branch DAILY WITH MEALS FERROUS Yes [id number] TAKE ONE [facility] vers SULFATE 325 8-13 TABLET BY ity of mg (65 mg 00:00: MOUTH [place] iron) 00 THREE Medical tablet TIMES Branch DAILY WITH MEALS FERROUS Yes [id number] TAKE ONE [facility] vers SULFATE 325 8-13 TABLET BY ity of mg (65 mg 00:00: MOUTH [place] iron) 00 THREE Medical tablet TIMES Branch DAILY WITH MEALS FERROUS Yes [id number] TAKE ONE [facility] vers SULFATE 325 8-13 TABLET BY ity of mg (65 mg 00:00: MOUTH [place] iron) 00 THREE Medical tablet TIMES Branch DAILY WITH MEALS FERROUS Yes [id number] TAKE ONE [facility] vers SULFATE 325 8-13 TABLET BY ity of mg (65 mg 00:00: MOUTH [place] iron) 00 THREE Medical tablet TIMES Branch DAILY WITH MEALS FERROUS Yes [id number] TAKE ONE [facility] vers SULFATE 325 8-13 TABLET BY ity of mg (65 mg 00:00: MOUTH [place] iron) 00 THREE Medical tablet TIMES Branch DAILY WITH MEALS FERROUS Yes [id number] TAKE ONE [facility] vers SULFATE 325 8-13 TABLET BY ity of mg (65 mg 00:00: MOUTH [place] iron) 00 THREE Medical tablet TIMES Branch DAILY WITH MEALS FERROUS Yes [id number] TAKE ONE [facility] vers SULFATE 325 8-13 TABLET BY ity of mg (65 mg 00:00: MOUTH [place] iron) 00 THREE Medical tablet TIMES Branch DAILY WITH MEALS FERROUS Yes [id number] TAKE ONE [facility] vers SULFATE 325 8-13 TABLET BY ity of mg (65 mg 00:00: MOUTH [place] iron) 00 THREE Medical tablet TIMES Branch DAILY WITH MEALS FERROUS Yes [id number] TAKE ONE [facility] vers SULFATE 325 8-13 TABLET BY ity of mg (65 mg 00:00: MOUTH [place] iron) 00 THREE Medical tablet TIMES Branch DAILY WITH MEALS FERROUS Yes [id number] TAKE ONE [facility] vers SULFATE 325 8-13 TABLET BY ity of mg (65 mg 00:00: MOUTH [place] iron) 00 THREE Medical tablet TIMES Branch DAILY WITH MEALS FERROUS Yes [id number] TAKE ONE [facility] vers SULFATE 325 8-13 TABLET BY ity of mg (65 mg 00:00: MOUTH [place] iron) 00 THREE Medical tablet TIMES Branch DAILY WITH MEALS FERROUS Yes [id number] TAKE ONE [facility] vers SULFATE 325 8-13 TABLET BY ity of mg (65 mg 00:00: MOUTH [place] iron) 00 THREE Medical tablet TIMES Branch DAILY WITH MEALS FERROUS Yes [id number] TAKE ONE [facility] vers SULFATE 325 8-13 TABLET BY ity of mg (65 mg 00:00: MOUTH [place] iron) 00 THREE Medical tablet TIMES Branch DAILY WITH MEALS FERROUS Yes [id number] TAKE ONE [facility] vers SULFATE 325 8-13 TABLET BY ity of mg (65 mg 00:00: MOUTH [place] iron) 00 THREE Medical tablet TIMES Branch DAILY WITH MEALS FERROUS Yes [id number] TAKE ONE [facility] vers SULFATE 325 8-13 TABLET BY ity of mg (65 mg 00:00: MOUTH [place] iron) 00 THREE Medical tablet TIMES Branch DAILY WITH MEALS FERROUS Yes [id number] TAKE ONE [facility] vers SULFATE 325 8-13 TABLET BY ity of mg (65 mg 00:00: MOUTH [place] iron) 00 THREE Medical tablet TIMES Branch DAILY WITH MEALS FERROUS Yes [id number] TAKE ONE [facility] vers SULFATE 325 8-13 TABLET BY ity of mg (65 mg 00:00: MOUTH [place] iron) 00 THREE Medical tablet TIMES Branch DAILY WITH MEALS FERROUS Yes [id number] TAKE ONE [facility] vers SULFATE 325 8-13 TABLET BY ity of mg (65 mg 00:00: MOUTH [place] iron) 00 THREE Medical tablet TIMES Branch DAILY WITH MEALS FERROUS Yes [id number] TAKE ONE [facility] vers SULFATE 325 8-13 TABLET BY ity of mg (65 mg 00:00: MOUTH [place] iron) 00 THREE Medical tablet TIMES Branch DAILY WITH MEALS FERROUS Yes [id number] TAKE ONE [facility] vers SULFATE 325 8-13 TABLET BY ity of mg (65 mg 00:00: MOUTH [place] iron) 00 THREE Medical tablet TIMES Branch DAILY WITH MEALS FERROUS Yes [id number] TAKE ONE [facility] vers SULFATE 325 8-13 TABLET BY ity of mg (65 mg 00:00: MOUTH [place] iron) 00 THREE Medical tablet TIMES Branch DAILY WITH MEALS FERROUS Yes [id number] TAKE ONE [facility] vers SULFATE 325 8-13 TABLET BY ity of mg (65 mg 00:00: MOUTH [place] iron) 00 THREE Medical tablet TIMES Branch DAILY WITH MEALS FERROUS Yes [id number] TAKE ONE [facility] vers SULFATE 325 8-13 TABLET BY ity of mg (65 mg 00:00: MOUTH [place] iron) 00 THREE Medical tablet TIMES Branch DAILY WITH MEALS FERROUS Yes [id number] TAKE ONE [facility] vers SULFATE 325 8-13 TABLET BY ity of mg (65 mg 00:00: MOUTH [place] iron) 00 THREE Medical tablet TIMES Branch DAILY WITH MEALS FERROUS Yes [id number] TAKE ONE [facility] vers SULFATE 325 8-13 TABLET BY ity of mg (65 mg 00:00: MOUTH [place] iron) 00 THREE Medical tablet TIMES Branch DAILY WITH MEALS FERROUS Yes [id number] TAKE ONE [facility] vers SULFATE 325 8-13 TABLET BY ity of mg (65 mg 00:00: MOUTH [place] iron) 00 THREE Medical tablet TIMES Branch DAILY WITH MEALS FERROUS Yes [id number] TAKE ONE [facility] vers SULFATE 325 8-13 TABLET BY ity of mg (65 mg 00:00: MOUTH [place] iron) 00 THREE Medical tablet TIMES Branch DAILY WITH MEALS FERROUS Yes [id number] TAKE ONE [facility] vers SULFATE 325 8-13 TABLET BY ity of mg (65 mg 00:00: MOUTH [place] iron) 00 THREE Medical tablet TIMES Branch DAILY WITH MEALS FERROUS Yes [id number] TAKE ONE [facility] vers SULFATE 325 8-13 TABLET BY ity of mg (65 mg 00:00: MOUTH [place] iron) 00 THREE Medical tablet TIMES Branch DAILY WITH MEALS FERROUS Yes [id number] TAKE ONE [facility] vers SULFATE 325 8-13 TABLET BY ity of mg (65 mg 00:00: MOUTH [place] iron) 00 THREE Medical tablet TIMES Branch DAILY WITH MEALS FERROUS Yes [id number] TAKE ONE [facility] vers SULFATE 325 8-13 TABLET BY ity of mg (65 mg 00:00: MOUTH [place] iron) 00 THREE Medical tablet TIMES Branch DAILY WITH MEALS FERROUS Yes [id number] TAKE ONE [facility] vers SULFATE 325 8-13 TABLET BY ity of mg (65 mg 00:00: MOUTH [place] iron) 00 THREE Medical tablet TIMES Branch DAILY WITH MEALS FERROUS Yes [id number] TAKE ONE [facility] vers SULFATE 325 8-13 TABLET BY ity of mg (65 mg 00:00: MOUTH [place] iron) 00 THREE Medical tablet TIMES Branch DAILY WITH MEALS FERROUS Yes [id number] TAKE ONE [facility] vers SULFATE 325 8-13 TABLET BY ity of mg (65 mg 00:00: MOUTH [place] iron) 00 THREE Medical tablet TIMES Branch DAILY WITH MEALS FERROUS Yes [id number] TAKE ONE [facility] vers SULFATE 325 8-13 TABLET BY ity of mg (65 mg 00:00: MOUTH [place] iron) 00 THREE Medical tablet TIMES Branch DAILY WITH MEALS FERROUS Yes [id number] TAKE ONE [facility] vers SULFATE 325 8-13 TABLET BY ity of mg (65 mg 00:00: MOUTH [place] iron) 00 THREE Medical tablet TIMES Branch DAILY WITH MEALS FERROUS Yes [id number] TAKE ONE [facility] vers SULFATE 325 8-13 TABLET BY ity of mg (65 mg 00:00: MOUTH [place] iron) 00 THREE Medical tablet TIMES Branch DAILY WITH MEALS FERROUS Yes [id number] TAKE ONE [facility] vers SULFATE 325 8-13 TABLET BY ity of mg (65 mg 00:00: MOUTH [place] iron) 00 THREE Medical tablet TIMES Branch DAILY WITH MEALS FERROUS Yes [id number] TAKE ONE [facility] vers SULFATE 325 8-13 TABLET BY ity of mg (65 mg 00:00: MOUTH [place] iron) 00 THREE Medical tablet TIMES Branch DAILY WITH MEALS FERROUS Yes [id number] TAKE ONE [facility] vers SULFATE 325 8-13 TABLET BY ity of mg (65 mg 00:00: MOUTH [place] iron) 00 THREE Medical tablet TIMES Branch DAILY WITH MEALS FERROUS Yes [id number] TAKE ONE [facility] vers SULFATE 325 8-13 TABLET BY ity of mg (65 mg 00:00: MOUTH [place] iron) 00 THREE Medical tablet TIMES Branch DAILY WITH MEALS FERROUS Yes [id number] TAKE ONE [facility] vers SULFATE 325 8-13 TABLET BY ity of mg (65 mg 00:00: MOUTH [place] iron) 00 THREE Medical tablet TIMES Branch DAILY WITH MEALS FERROUS Yes [id number] TAKE ONE [facility] vers SULFATE 325 8-13 TABLET BY ity of mg (65 mg 00:00: MOUTH [place] iron) 00 THREE Medical tablet TIMES Branch DAILY WITH MEALS FERROUS Yes [id number] TAKE ONE [facility] vers SULFATE 325 8-13 TABLET BY ity of mg (65 mg 00:00: MOUTH [place] iron) 00 THREE Medical tablet TIMES Branch DAILY WITH MEALS FERROUS Yes [id number] TAKE ONE [facility] vers SULFATE 325 8-13 TABLET BY ity of mg (65 mg 00:00: MOUTH [place] iron) 00 THREE Medical tablet TIMES Branch DAILY WITH MEALS FERROUS Yes [id number] TAKE ONE [facility] vers SULFATE 325 8-13 TABLET BY ity of mg (65 mg 00:00: MOUTH [place] iron) 00 THREE Medical tablet TIMES Branch DAILY WITH MEALS FERROUS Yes [id number] TAKE ONE [facility] vers SULFATE 325 8-13 TABLET BY ity of mg (65 mg 00:00: MOUTH [place] iron) 00 THREE Medical tablet TIMES Branch DAILY WITH MEALS FERROUS Yes [id number] TAKE ONE [facility] vers SULFATE 325 8-13 TABLET BY ity of mg (65 mg 00:00: MOUTH [place] iron) 00 THREE Medical tablet TIMES Branch DAILY WITH MEALS FERROUS Yes [id number] TAKE ONE [facility] vers SULFATE 325 8-13 TABLET BY ity of mg (65 mg 00:00: MOUTH [place] iron) 00 THREE Medical tablet TIMES Branch DAILY WITH MEALS FERROUS Yes [id number] TAKE ONE [facility] vers SULFATE 325 8-13 TABLET BY ity of mg (65 mg 00:00: MOUTH [place] iron) 00 THREE Medical tablet TIMES Branch DAILY WITH MEALS FERROUS Yes [id number] TAKE ONE [facility] vers SULFATE 325 8-13 TABLET BY ity of mg (65 mg 00:00: MOUTH [place] iron) 00 THREE Medical tablet TIMES Branch DAILY WITH MEALS FERROUS Yes [id number] TAKE ONE [facility] vers SULFATE 325 8-13 TABLET BY ity of mg (65 mg 00:00: MOUTH [place] iron) 00 THREE Medical tablet TIMES Branch DAILY WITH MEALS FERROUS Yes [id number] TAKE ONE [facility] vers SULFATE 325 8-13 TABLET BY ity of mg (65 mg 00:00: MOUTH [place] iron) 00 THREE Medical tablet TIMES Branch DAILY WITH MEALS FERROUS Yes [id number] TAKE ONE [facility] vers SULFATE 325 8-13 TABLET BY ity of mg (65 mg 00:00: MOUTH [place] iron) 00 THREE Medical tablet TIMES Branch DAILY WITH MEALS FERROUS Yes [id number] TAKE ONE [facility] vers SULFATE 325 8-13 TABLET BY ity of mg (65 mg 00:00: MOUTH [place] iron) 00 THREE Medical tablet TIMES Branch DAILY WITH MEALS FERROUS Yes [id number] TAKE ONE [facility] vers SULFATE 325 8-13 TABLET BY ity of mg (65 mg 00:00: MOUTH [place] iron) 00 THREE Medical tablet TIMES Branch DAILY WITH MEALS FERROUS Yes [id number] TAKE ONE [facility] vers SULFATE 325 8-13 TABLET BY ity of mg (65 mg 00:00: MOUTH [place] iron) 00 THREE Medical tablet TIMES Branch DAILY WITH MEALS FERROUS Yes [id number] TAKE ONE [facility] vers SULFATE 325 8-13 TABLET BY ity of mg (65 mg 00:00: MOUTH [place] iron) 00 THREE Medical tablet TIMES Branch DAILY WITH MEALS FERROUS Yes [id number] TAKE ONE [facility] vers SULFATE 325 8-13 TABLET BY ity of mg (65 mg 00:00: MOUTH [place] iron) 00 THREE Medical tablet TIMES Branch DAILY WITH MEALS FERROUS Yes [id number] TAKE ONE [facility] vers SULFATE 325 8-13 TABLET BY ity of mg (65 mg 00:00: MOUTH [place] iron) 00 THREE Medical tablet TIMES Branch DAILY WITH MEALS FERROUS Yes [id number] TAKE ONE [facility] vers SULFATE 325 8-13 TABLET BY ity of mg (65 mg 00:00: MOUTH [place] iron) 00 THREE Medical tablet TIMES Branch DAILY WITH MEALS FERROUS Yes [id number] TAKE ONE [facility] vers SULFATE 325 8-13 TABLET BY ity of mg (65 mg 00:00: MOUTH [place] iron) 00 THREE Medical tablet TIMES Branch DAILY WITH MEALS FERROUS Yes [id number] TAKE ONE [facility] vers SULFATE 325 8-13 TABLET BY ity of mg (65 mg 00:00: MOUTH [place] iron) 00 THREE Medical tablet TIMES Branch DAILY WITH MEALS FERROUS Yes [id number] TAKE ONE [facility] vers SULFATE 325 8-13 TABLET BY ity of mg (65 mg 00:00: MOUTH [place] iron) 00 THREE Medical tablet TIMES Branch DAILY WITH MEALS FERROUS Yes [id number] TAKE ONE [facility] vers SULFATE 325 8-13 TABLET BY ity of mg (65 mg 00:00: MOUTH [place] iron) 00 THREE Medical tablet TIMES Branch DAILY WITH MEALS FERROUS Yes [id number] TAKE ONE [facility] vers SULFATE 325 8-13 TABLET BY ity of mg (65 mg 00:00: MOUTH [place] iron) 00 THREE Medical tablet TIMES Branch DAILY WITH MEALS FERROUS Yes [id number] TAKE ONE [facility] vers SULFATE 325 8-13 TABLET BY ity of mg (65 mg 00:00: MOUTH [place] iron) 00 THREE Medical tablet TIMES Branch DAILY WITH MEALS FERROUS Yes [id number] TAKE ONE [facility] vers SULFATE 325 8-13 TABLET BY ity of mg (65 mg 00:00: MOUTH [place] iron) 00 THREE Medical tablet TIMES Branch DAILY WITH MEALS FERROUS Yes [id number] TAKE ONE [facility] vers SULFATE 325 8-13 TABLET BY ity of mg (65 mg 00:00: MOUTH [place] iron) 00 THREE Medical tablet TIMES Branch DAILY WITH MEALS FERROUS Yes [id number] TAKE ONE [facility] vers SULFATE 325 8-13 TABLET BY ity of mg (65 mg 00:00: MOUTH [place] iron) 00 THREE Medical tablet TIMES Branch DAILY WITH MEALS FERROUS Yes [id number] TAKE ONE [facility] vers SULFATE 325 8-13 TABLET BY ity of mg (65 mg 00:00: MOUTH [place] iron) 00 THREE Medical tablet TIMES Branch DAILY WITH MEALS FERROUS Yes [id number] TAKE ONE [facility] vers SULFATE 325 8-13 TABLET BY ity of mg (65 mg 00:00: MOUTH [place] iron) 00 THREE Medical tablet TIMES Branch DAILY WITH MEALS FERROUS Yes [id number] TAKE ONE [facility] vers SULFATE 325 8-13 TABLET BY ity of mg (65 mg 00:00: MOUTH [place] iron) 00 THREE Medical tablet TIMES Branch DAILY WITH MEALS FERROUS Yes [id number] TAKE ONE [facility] vers SULFATE 325 8-13 TABLET BY ity of mg (65 mg 00:00: MOUTH [place] iron) 00 THREE Medical tablet TIMES Branch DAILY WITH MEALS FERROUS Yes [id number] TAKE ONE [facility] vers SULFATE 325 8-13 TABLET BY ity of mg (65 mg 00:00: MOUTH [place] iron) 00 THREE Medical tablet TIMES Branch DAILY WITH MEALS FERROUS 3- No [id number] TAKE ONE [facility] SULFATE 325 8-13 -24 TABLET BY it y of mg (65 mg 00:00: 00:00 MOUTH [place] iron) 00 :00 THREE Medical tablet TIMES Branch DAILY WITH MEALS FERROUS 3- No [id number] TAKE ONE [facility] SULFATE 325 8-13 -24 TABLET BY it y of mg (65 mg 00:00: 00:00 MOUTH [place] iron) 00 :00 THREE Medical tablet TIMES Branch DAILY WITH MEALS FERROUS 3- No [id number] TAKE ONE [facility] SULFATE 325 8-24 TABLET BY it y of mg (65 mg 00:00: 00:00 MOUTH [place] iron) 00 :00 THREE Medical tablet TIMES Branch DAILY WITH MEALS coQ10, Yes [id number] 1{capsu Take 1 U nivers ubiquinol, 1-16 le} capsule by ity of 100 mg Cap 00:00: mouth [place] 00 daily. Medical Branch coQ10, Yes [id number] 1{capsu Take 1 U nivers ubiquinol, 1-16 le} capsule by ity of 100 mg Cap 00:00: mouth [place] 00 daily. Medical Branch coQ10, Yes [id number] 1{capsu Take 1 U nivers ubiquinol, 1-16 le} capsule by ity of 100 mg Cap 00:00: mouth [place] 00 daily. Medical Branch coQ10, Yes [id number] 1{capsu Take 1 U nivers ubiquinol, 1-16 le} capsule by ity of 100 mg Cap 00:00: mouth [place] 00 daily. Medical Branch coQ10, Yes [id number] 1{capsu Take 1 U nivers ubiquinol, 1-16 le} capsule by ity of 100 mg Cap 00:00: mouth [place] 00 daily. Medical Branch coQ10, Yes [id number] 1{capsu Take 1 U nivers ubiquinol, 1-16 le} capsule by ity of 100 mg Cap 00:00: mouth [place] 00 daily. Medical Branch coQ10, Yes [id number] 1{capsu Take 1 U nivers ubiquinol, 1-16 le} capsule by ity of 100 mg Cap 00:00: mouth [place] 00 daily. Medical Branch coQ10, Yes [id number] 1{capsu Take 1 U nivers ubiquinol, 1-16 le} capsule by ity of 100 mg Cap 00:00: mouth [place] 00 daily. Medical Branch coQ10, Yes [id number] 1{capsu Take 1 U nivers ubiquinol, 1-16 le} capsule by ity of 100 mg Cap 00:00: mouth [place] 00 daily. Medical Branch coQ10, Yes [id number] 1{capsu Take 1 U nivers ubiquinol, 1-16 le} capsule by ity of 100 mg Cap 00:00: mouth [place] 00 daily. [facility] Branch coQ10, Yes [id number] 1{capsu Take 1 U nivers ubiquinol, 1-16 le} capsule by ity of 100 mg Cap 00:00: mouth [place] 00 daily. [facility] Branch coQ10, Yes [id number] 1{capsu Take 1 U nivers ubiquinol, 1-16 le} capsule by ity of 100 mg Cap 00:00: mouth [place] 00 daily. [facility] Branch coQ10, Yes [id number] 1{capsu Take 1 U nivers ubiquinol, 1-16 le} capsule by ity of 100 mg Cap 00:00: mouth [place] 00 daily. [facility] Branch coQ10, Yes [id number] 1{capsu Take 1 U nivers ubiquinol, 1-16 le} capsule by ity of 100 mg Cap 00:00: mouth [place] 00 daily. [facility] Branch coQ10, Yes [id number] 1{capsu Take 1 U nivers ubiquinol, 1-16 le} capsule by ity of 100 mg Cap 00:00: mouth [place] 00 daily. [facility] Branch coQ10, Yes [id number] 1{capsu Take 1 U nivers ubiquinol, 1-16 le} capsule by ity of 100 mg Cap 00:00: mouth [place] 00 daily. Medical Branch coQ10, Yes [id number] 1{capsu Take 1 U nivers ubiquinol, 1-16 le} capsule by ity of 100 mg Cap 00:00: mouth [place] 00 daily. [facility] Branch coQ10, Yes [id number] 1{capsu Take 1 U nivers ubiquinol, 1-16 le} capsule by ity of 100 mg Cap 00:00: mouth [place] 00 daily. [facility] Branch coQ10, Yes [id number] 1{capsu Take 1 U nivers ubiquinol, 1-16 le} capsule by ity of 100 mg Cap 00:00: mouth [place] 00 daily. [facility] Branch coQ10, Yes [id number] 1{capsu Take 1 U nivers ubiquinol, 1-16 le} capsule by ity of 100 mg Cap 00:00: mouth [place] 00 daily. [facility] Branch coQ10, Yes [id number] 1{capsu Take 1 U nivers ubiquinol, 1-16 le} capsule by ity of 100 mg Cap 00:00: mouth [place] 00 daily. [facility] Branch coQ10, Yes [id number] 1{capsu Take 1 U nivers ubiquinol, 1-16 le} capsule by ity of 100 mg Cap 00:00: mouth [place] 00 daily. [facility] Branch coQ10, Yes [id number] 1{capsu Take 1 U nivers ubiquinol, 1-16 le} capsule by ity of 100 mg Cap 00:00: mouth [place] 00 daily. [facility] Branch coQ10, Yes [id number] 1{capsu Take 1 U nivers ubiquinol, 1-16 le} capsule by ity of 100 mg Cap 00:00: mouth [place] 00 daily. [facility] Branch coQ10, Yes [id number] 1{capsu Take 1 U nivers ubiquinol, 1-16 le} capsule by ity of 100 mg Cap 00:00: mouth [place] 00 daily. [facility] Branch coQ10, Yes [id number] 1{capsu Take 1 U nivers ubiquinol, 1-16 le} capsule by ity of 100 mg Cap 00:00: mouth [place] 00 daily. [facility] Branch coQ10, Yes [id number] 1{capsu Take 1 U nivers ubiquinol, 1-16 le} capsule by ity of 100 mg Cap 00:00: mouth [place] 00 daily. [facility] Branch coQ10, Yes [id number] 1{capsu Take 1 U nivers ubiquinol, 1-16 le} capsule by ity of 100 mg Cap 00:00: mouth [place] 00 daily. [facility] Branch coQ10, Yes [id number] 1{capsu Take 1 U nivers ubiquinol, 1-16 le} capsule by ity of 100 mg Cap 00:00: mouth [place] 00 daily. [facility] Branch coQ10, Yes [id number] 1{capsu Take 1 U nivers ubiquinol, 1-16 le} capsule by ity of 100 mg Cap 00:00: mouth [place] 00 daily. Medical Branch coQ10, Yes [id number] 1{capsu Take 1 U nivers ubiquinol, 1-16 le} capsule by ity of 100 mg Cap 00:00: mouth [place] 00 daily. Medical Branch coQ10, Yes [id number] 1{capsu Take 1 U nivers ubiquinol, 1-16 le} capsule by ity of 100 mg Cap 00:00: mouth [place] 00 daily. Medical Branch coQ10, Yes [id number] 1{capsu Take 1 U nivers ubiquinol, 1-16 le} capsule by ity of 100 mg Cap 00:00: mouth [place] 00 daily. Medical Branch coQ10, Yes [id number] 1{capsu Take 1 U nivers ubiquinol, 1-16 le} capsule by ity of 100 mg Cap 00:00: mouth [place] 00 daily. Medical Branch coQ10, Yes [id number] 1{capsu Take 1 U nivers ubiquinol, 1-16 le} capsule by ity of 100 mg Cap 00:00: mouth [place] 00 daily. Medical Branch coQ10, Yes [id number] 1{capsu Take 1 U nivers ubiquinol, 1-16 le} capsule by ity of 100 mg Cap 00:00: mouth [place] 00 daily. Medical Branch coQ10, Yes [id number] 1{capsu Take 1 U nivers ubiquinol, 1-16 le} capsule by ity of 100 mg Cap 00:00: mouth [place] 00 daily. Medical Branch coQ10, Yes [id number] 1{capsu Take 1 U nivers ubiquinol, 1-16 le} capsule by ity of 100 mg Cap 00:00: mouth [place] 00 daily. Medical Branch coQ10, Yes [id number] 1{capsu Take 1 U nivers ubiquinol, 1-16 le} capsule by ity of 100 mg Cap 00:00: mouth [place] 00 daily. Medical Branch coQ10, Yes [id number] 1{capsu Take 1 U nivers ubiquinol, 1-16 le} capsule by ity of 100 mg Cap 00:00: mouth [place] 00 daily. Medical Branch coQ10, Yes [id number] 1{capsu Take 1 U nivers ubiquinol, 1-16 le} capsule by ity of 100 mg Cap 00:00: mouth [place] 00 daily. Medical Branch coQ10, Yes [id number] 1{capsu Take 1 U nivers ubiquinol, 1-16 le} capsule by ity of 100 mg Cap 00:00: mouth [place] 00 daily. Medical Branch coQ10, Yes [id number] 1{capsu Take 1 U nivers ubiquinol, 1-16 le} capsule by ity of 100 mg Cap 00:00: mouth [place] 00 daily. Medical Branch coQ10, Yes [id number] 1{capsu Take 1 U nivers ubiquinol, 1-16 le} capsule by ity of 100 mg Cap 00:00: mouth [place] 00 daily. Medical Branch coQ10, Yes [id number] 1{capsu Take 1 U nivers ubiquinol, 1-16 le} capsule by ity of 100 mg Cap 00:00: mouth [place] 00 daily. Medical Branch coQ10, Yes [id number] 1{capsu Take 1 U nivers ubiquinol, 1-16 le} capsule by ity of 100 mg Cap 00:00: mouth [place] 00 daily. Medical Branch coQ10, Yes [id number] 1{capsu Take 1 U nivers ubiquinol, 1-16 le} capsule by ity of 100 mg Cap 00:00: mouth [place] 00 daily. Medical Branch coQ10, Yes [id number] 1{capsu Take 1 U nivers ubiquinol, 1-16 le} capsule by ity of 100 mg Cap 00:00: mouth [place] 00 daily. Medical Branch coQ10, Yes [id number] 1{capsu Take 1 U nivers ubiquinol, 1-16 le} capsule by ity of 100 mg Cap 00:00: mouth [place] 00 daily. Medical Branch coQ10, Yes [id number] 1{capsu Take 1 U nivers ubiquinol, 1-16 le} capsule by ity of 100 mg Cap 00:00: mouth [place] 00 daily. Medical Branch coQ10, Yes [id number] 1{capsu Take 1 U nivers ubiquinol, 1-16 le} capsule by ity of 100 mg Cap 00:00: mouth [place] 00 daily. [facility] coQ10, Yes [id number] 1{capsu Take 1 U nivers ubiquinol, 1-16 le} capsule by ity of 100 mg Cap 00:00: mouth [place] 00 daily. [facility] coQ10, Yes [id number] 1{capsu Take 1 U nivers ubiquinol, 1-16 le} capsule by ity of 100 mg Cap 00:00: mouth [place] 00 daily. [facility] coQ10, Yes [id number] 1{capsu Take 1 U nivers ubiquinol, 1-16 le} capsule by ity of 100 mg Cap 00:00: mouth [place] 00 daily. [facility] coQ10, Yes [id number] 1{capsu Take 1 U nivers ubiquinol, 1-16 le} capsule by ity of 100 mg Cap 00:00: mouth [place] 00 daily. [facility] coQ10, Yes [id number] 1{capsu Take 1 U nivers ubiquinol, 1-16 le} capsule by ity of 100 mg Cap 00:00: mouth [place] 00 daily. [facility] coQ10, Yes [id number] 1{capsu Take 1 U nivers ubiquinol, 1-16 le} capsule by ity of 100 mg Cap 00:00: mouth [place] 00 daily. [facility] coQ10, Yes [id number] 1{capsu Take 1 U nivers ubiquinol, 1-16 le} capsule by ity of 100 mg Cap 00:00: mouth [place] 00 daily. [facility] coQ10, Yes [id number] 1{capsu Take 1 U nivers ubiquinol, 1-16 le} capsule by ity of 100 mg Cap 00:00: mouth [place] 00 daily. [facility] coQ10, Yes [id number] 1{capsu Take 1 U nivers ubiquinol, 1-16 le} capsule by ity of 100 mg Cap 00:00: mouth [place] 00 daily. [facility] coQ10, Yes [id number] 1{capsu Take 1 U nivers ubiquinol, 1-16 le} capsule by ity of 100 mg Cap 00:00: mouth [place] 00 daily. [facility] coQ10, Yes [id number] 1{capsu Take 1 U nivers ubiquinol, 1-16 le} capsule by ity of 100 mg Cap 00:00: mouth [place] 00 daily. [facility] coQ10, Yes [id number] 1{capsu Take 1 U nivers ubiquinol, 1-16 le} capsule by ity of 100 mg Cap 00:00: mouth [place] 00 daily. [facility] coQ10, Yes [id number] 1{capsu Take 1 U nivers ubiquinol, 1-16 le} capsule by ity of 100 mg Cap 00:00: mouth [place] 00 daily. [facility] coQ10, Yes [id number] 1{capsu Take 1 U nivers ubiquinol, 1-16 le} capsule by ity of 100 mg Cap 00:00: mouth [place] 00 daily. [facility] coQ10, Yes [id number] 1{capsu Take 1 U nivers ubiquinol, 1-16 le} capsule by ity of 100 mg Cap 00:00: mouth [place] 00 daily. [facility] coQ10, Yes [id number] 1{capsu Take 1 U nivers ubiquinol, 1-16 le} capsule by ity of 100 mg Cap 00:00: mouth [place] 00 daily. [facility] coQ10, Yes [id number] 1{capsu Take 1 U nivers ubiquinol, 1-16 le} capsule by ity of 100 mg Cap 00:00: mouth [place] 00 daily. [facility] coQ10, Yes [id number] 1{capsu Take 1 U nivers ubiquinol, 1-16 le} capsule by ity of 100 mg Cap 00:00: mouth [place] 00 daily. [facility] coQ10, Yes [id number] 1{capsu Take 1 U nivers ubiquinol, 1-16 le} capsule by ity of 100 mg Cap 00:00: mouth [place] 00 daily. [facility] coQ10, Yes [id number] 1{capsu Take 1 U nivers ubiquinol, 1-16 le} capsule by ity of 100 mg Cap 00:00: mouth [place] 00 daily. [facility] coQ10, Yes [id number] 1{capsu Take 1 U nivers ubiquinol, 1-16 le} capsule by ity of 100 mg Cap 00:00: mouth [place] 00 daily. [facility] coQ10, Yes [id number] 1{capsu Take 1 U nivers ubiquinol, 1-16 le} capsule by ity of 100 mg Cap 00:00: mouth [place] 00 daily. [facility] coQ10, Yes [id number] 1{capsu Take 1 U nivers ubiquinol, 1-16 le} capsule by ity of 100 mg Cap 00:00: mouth [place] 00 daily. [facility] coQ10, Yes [id number] 1{capsu Take 1 U nivers ubiquinol, 1-16 le} capsule by ity of 100 mg Cap 00:00: mouth [place] 00 daily. [facility] coQ10, Yes [id number] 1{capsu Take 1 U nivers ubiquinol, 1-16 le} capsule by ity of 100 mg Cap 00:00: mouth [place] 00 daily. [facility] coQ10, Yes [id number] 1{capsu Take 1 U nivers ubiquinol, 1-16 le} capsule by ity of 100 mg Cap 00:00: mouth [place] 00 daily. [facility] coQ10, Yes [id number] 1{capsu Take 1 U nivers ubiquinol, 1-16 le} capsule by ity of 100 mg Cap 00:00: mouth [place] 00 daily. [facility] coQ10, Yes [id number] 1{capsu Take 1 U nivers ubiquinol, 1-16 le} capsule by ity of 100 mg Cap 00:00: mouth [place] 00 daily. [facility] coQ10, Yes [id number] 1{capsu Take 1 U nivers ubiquinol, 1-16 le} capsule by ity of 100 mg Cap 00:00: mouth [place] 00 daily. [facility] coQ10, Yes [id number] 1{capsu Take 1 U nivers ubiquinol, 1-16 le} capsule by ity of 100 mg Cap 00:00: mouth [place] 00 daily. [facility] coQ10, Yes [id number] 1{capsu Take 1 U nivers ubiquinol, 1-16 le} capsule by ity of 100 mg Cap 00:00: mouth [place] 00 daily. [facility] loratadine Yes [id number] 10mg Take 1 [facility] 10 mg 1-23 tablet by ity of tablet 00:00: mouth [place] 00 daily. [facility] loratadine Yes [id number] 10mg Take 1 [facility] 10 mg 1-23 tablet by ity of tablet 00:00: mouth [place] 00 daily. [facility] loratadine Yes [id number] 10mg Take 1 [facility] 10 mg 1-23 tablet by ity of tablet 00:00: mouth [place] 00 daily. [facility] loratadine Yes [id number] 10mg Take 1 [facility] 10 mg 1-23 tablet by ity of tablet 00:00: mouth [place] 00 daily. [facility] loratadine Yes [id number] 10mg Take 1 [facility] 10 mg 1-23 tablet by ity of tablet 00:00: mouth [place] 00 daily. [facility] loratadine 2021- No [id number] 10mg Take 1 [facility] 10 mg 1-23 06-13 tablet by ity of tablet 00:00: 00:00 mouth [place] 00 :00 daily. [facility] Immunizations Ordered Immunization Filled Immunization Date Status Commen ts Source Name Name SARS-COV-2 COVID-19 2022-07-27 Completed [facility]ive [facility] of [facility] VACCINE 00:00:00 [facility] [place] [facility] 12 YRS+, BIVALENT Branch 0.3ML, IM, (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) SARS-COV-2 COVID-19 2022-07-27 Completed Unive rsity of [facility]CR[facility] VACCINE 00:00:00 [facility] [place] [facility] 12 YRS+, BIVALENT Branch 0.3ML, IM, (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) SARS-COV-2 COVID-19 2022-07-27 Completed Unive rsity of [facility]ELLE-SUCROSE VACCINE 00:00:00 [facility] [place] [facility] 12 YRS+, BIVALENT Branch 0.3ML, IM, (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) SARS-COV-2 COVID-19 2022-07-27 Completed Unive rsity of [facility]ELLE-SUCROSE VACCINE 00:00:00 [facility] [place] [facility] 12 YRS+, BIVALENT Branch 0.3ML, IM, (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) SARS-COV-2 COVID-19 2022-07-27 Completed Unive rsity of [facility]STELLE-SUCROSE VACCINE 00:00:00 [facility] [place] [facility] 12 YRS+, BIVALENT Branch 0.3ML, IM, (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) SARS-COV-2 COVID-19 2022-07-27 Completed Unive rsity of [facility]STELLE-SUCROSE VACCINE 00:00:00 [facility] [place] [facility] 12 YRS+, BIVALENT Branch 0.3ML, IM, (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) SARS-COV-2 COVID-19 2022-07-27 Completed Unive rsity of [facility]STELLE-SUCROSE VACCINE 00:00:00 [facility] [place] [facility] 12 YRS+, BIVALENT Branch 0.3ML, IM, (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) SARS-COV-2 COVID-19 2022-07-27 Completed Unive rsity of [facility]ELLE-SUCROSE VACCINE 00:00:00 [facility] [place] [facility] 12 YRS+, BIVALENT Branch 0.3ML, IM, (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) SARS-COV-2 COVID-19 2022-07-27 Completed Unive rsity of [facility]ELLE-SUCR[facility] VACCINE 00:00:00 [facility] [place] [facility] 12 YRS+, BIVALENT Branch 0.3ML, IM, (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) SARS-COV-2 COVID-19 2022-07-27 Completed Unive rsity of [facility]STELLE-SUCROSE VACCINE 00:00:00 [facility] [place] [facility] 12 YRS+, BIVALENT Branch 0.3ML, IM, (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) SARS-COV-2 COVID-19 2022-07-27 Completed Unive rsity of [facility]RISTELLE-SUCROSE VACCINE 00:00:00 [facility] [place] [facility] 12 YRS+, BIVALENT Branch 0.3ML, IM, (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) SARS-COV-2 COVID-19 2022-07-27 Completed Unive rsity of [facility]RISTELLE-SUCROSE VACCINE 00:00:00 [facility] [place] [facility] 12 YRS+, BIVALENT Branch 0.3ML, IM, (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) SARS-COV-2 COVID-19 2022-07-27 Completed Unive rsity of [facility]RISTELLE-SUCROSE VACCINE 00:00:00 [facility] [place] [facility] 12 YRS+, BIVALENT Branch 0.3ML, IM, (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) SARS-COV-2 COVID-19 2022-07-27 Completed Unive rsity of [facility]STELLE-SUCROSE VACCINE 00:00:00 [facility] [place] [facility] 12 YRS+, BIVALENT Branch 0.3ML, IM, (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) SARS-COV-2 COVID-19 2022-07-27 Completed Unive rsity of [facility]STELLE-SUCROSE VACCINE 00:00:00 [facility] [place] [facility] 12 YRS+, BIVALENT Branch 0.3ML, IM, (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) SARS-COV-2 COVID-19 2022-07-27 Completed Unive rsity of [facility]RISTELLE-SUCROSE VACCINE 00:00:00 [facility] [place] [facility] 12 YRS+, BIVALENT Branch 0.3ML, IM, (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) SARS-COV-2 COVID-19 2022-07-27 Completed Unive rsity of [facility]RISTELLE-SUCROSE VACCINE 00:00:00 [facility] [place] [facility] 12 YRS+, BIVALENT Branch 0.3ML, IM, (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) SARS-COV-2 COVID-19 2022-07-27 Completed Unive rsity of [facility]STELLE-SUCROSE VACCINE 00:00:00 [facility] [place] [facility] 12 YRS+, BIVALENT Branch 0.3ML, IM, (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) SARS-COV-2 COVID-19 2022-07-27 Completed Unive rsity of [facility]STELLE-SUCROSE VACCINE 00:00:00 [facility] [place] [facility] 12 YRS+, BIVALENT Branch 0.3ML, IM, (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) SARS-COV-2 COVID-19 2022-07-27 Completed Unive rsity of [facility]RISTELLE-SUCROSE VACCINE 00:00:00 [facility] [place] [facility] 12 YRS+, BIVALENT Branch 0.3ML, IM, (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) SARS-COV-2 COVID-19 2022-07-27 Completed Unive rsity of [facility]RISTELLE-SUCROSE VACCINE 00:00:00 [facility] [place] [facility] 12 YRS+, BIVALENT Branch 0.3ML, IM, (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) SARS-COV-2 COVID-19 2022-07-27 Completed Unive rsity of CHRISTELLE-SUCROSE VACCINE 00:00:00 [facility] [place] [facility] 12 YRS+, BIVALENT Branch 0.3ML, IM, (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) SARS-COV-2 COVID-19 2022-07-27 Completed Unive rsity of CHRISTELLE-SUCROSE VACCINE 00:00:00 [facility] [place] [facility] 12 YRS+, BIVALENT Branch 0.3ML, IM, (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) SARS-COV-2 COVID-19 2022-07-27 Completed Unive rsity of CHRISTELLE-SUCROSE VACCINE 00:00:00 [facility] [place] [facility] 12 YRS+, BIVALENT Branch 0.3ML, IM, (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) SARS-COV-2 COVID-19 2022-07-27 Completed Unive rsity of CHRISTELLE-SUCROSE VACCINE 00:00:00 [facility] [place] [facility] 12 YRS+, BIVALENT Branch 0.3ML, IM, (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) SARS-COV-2 COVID-19 2022-07-27 Completed Unive rsity of [facility]STELLE-SUCR[facility] VACCINE 00:00:00 [facility]+, BIVALENT Branch 0.3ML, IM, (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) SARS-COV-2 COVID-19 2022-07-27 Completed Unive rsity of CHRISTELLE-SUCROSE VACCINE 00:00:00 [facility] 12 Y[facility]+, BIVALENT Branch 0.3ML, IM, (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) SARS-COV-2 COVID-19 2022-07-27 Completed Unive rsity of [facility]STELLE-SUCROSE VACCINE 00:00:00 [facility] Y[facility]+, BIVALENT Branch 0.3ML, IM, (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) SARS-COV-2 COVID-19 2022-07-27 Completed Unive rsity of CHRISTELLE-SUCROSE VACCINE 00:00:00 [facility] 12 YRS+, BIVALENT Branch 0.3ML, IM, (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) SARS-COV-2 COVID-19 2022-07-27 Completed Unive rsity of CHRISTELLE-SUCROSE VACCINE 00:00:00 [facility] 12 YRS+, BIVALENT Branch 0.3ML, IM, (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) SARS-COV-2 COVID-19 2022-07-27 Completed Unive rsity of CHRISTELLE-SUCROSE VACCINE 00:00:00 [facility] 12 YRS+, BIVALENT Branch 0.3ML, [...] [facility] Twin[facility] (hep a/hep b) 2022-02-24 Completed Uni versity of 00:00:00 [facility] Twinrix (hep a/hep b) 2022-02-24 Completed Uni versity of 00:00:00 [facility] Twin[facility] (hep a/hep b) 2022-02-24 Completed Uni versity of 00:00:00 [facility] Twinrix (hep a/hep b) 2022-02-24 Completed Uni versity of 00:00:00 [facility] Twinrix (hep a/hep b) 2022-02-24 Completed Uni versity of 00:00:00 [facility] Twinrix (hep a/hep b) 2022-02-24 Completed Uni versity of 00:00:00 [facility] Twinrix (hep a/hep b) 2022-02-24 Completed Uni versity of 00:00:00 [facility] Twinrix (hep a/hep b) 2022-02-24 Completed Uni versity of 00:00:00 [facility] Twinrix (hep a/hep b) 2022-02-24 Completed Uni versity of 00:00:00 [facility] Twinrix (hep a/hep b) 2022-02-24 Completed Uni versity of 00:00:00 [place] [facility] Twin[facility] (hep a/hep b) 2022-02-24 Completed Uni versity of 00:00:00 [place] [facility] (hep a/hep b) 2022-02-24 Completed Uni versity of 00:00:00 [place] [facility] (hep a/hep b) 2022-02-24 Completed Uni versity of 00:00:00 [place] [facility] Twin[facility] (hep a/hep b) 2022-02-24 Completed Uni versity of 00:00:00 [place] [facility] Twinrix (hep a/hep b) 2022-02-24 Completed Uni versity of 00:00:00 [place] [facility] Twin[facility] (hep a/hep b) 2022-02-24 Completed Uni versity of 00:00:00 [place] [facility] Twin[facility] (hep a/hep b) 2022-02-24 Completed Uni versity of 00:00:00 [facility] Twinrix (hep a/hep b) 2022-02-24 Completed Uni versity of 00:00:00 [place] [facility] Twinrix (hep a/hep b) 2022-02-24 Completed Uni versity of 00:00:00 [facility] Twinrix (hep a/hep b) 2022-02-24 Completed Uni versity of 00:00:00 [place] [facility] Twinrix (hep a/hep b) 2022-02-24 Completed Uni versity of 00:00:00 [facility] Twinrix (hep a/hep b) 2022-02-24 Completed Uni versity of 00:00:00 [place] [facility] Twin[facility] (hep a/hep b) 2022-02-24 Completed Uni versity of 00:00:00 [place] [facility] Twin[facility] (hep a/hep b) 2022-02-24 Completed Uni versity of 00:00:00 [place] [facility] Twin[facility] (hep a/hep b) 2022-02-24 Completed Uni versity of 00:00:00 [place] [facility] Twin[facility] (hep a/hep b) 2022-02-24 Completed Uni versity of 00:00:00 [place] [facility] Twin[facility] (hep a/hep b) 2022-02-24 Completed Uni versity of 00:00:00 [facility] Twinrix (hep a/hep b) 2022-02-24 Completed Uni versity of 00:00:00 [place] [facility] Twin[facility] (hep a/hep b) 2022-02-24 Completed Uni versity of 00:00:00 [place] [facility] Twinrix (hep a/hep b) 2022-02-24 Completed Uni versity of 00:00:00 [place] [facility] Twinrix (hep a/hep b) 2022-02-24 Completed Uni versity of 00:00:00 [facility] Twinrix (hep a/hep b) 2022-02-24 Completed Uni versity of 00:00:00 [facility] Twinrix (hep a/hep b) 2022-02-24 Completed Uni versity of 00:00:00 [facility] Twinrix (hep a/hep b) 2022-02-24 Completed Uni versity of 00:00:00 [facility] Twinrix (hep a/hep b) 2022-02-24 Completed Uni versity of 00:00:00 [facility] Twinrix (hep a/hep b) 2022-02-24 Completed Uni versity of 00:00:00 [facility] Twinrix (hep a/hep b) 2022-02-24 Completed Uni versity of 00:00:00 [facility] Twinrix (hep a/hep b) 2022-02-24 Completed Uni versity of 00:00:00 [facility] Twinrix (hep a/hep b) 2022-02-24 Completed Uni versity of 00:00:00 [facility] Twinrix (hep a/hep b) 2022-02-24 Completed Uni versity of 00:00:00 [facility] Twinrix (hep a/hep b) 2022-02-24 Completed Uni versity of 00:00:00 [facility] Twinrix (hep a/hep b) 2022-02-24 Completed Uni versity of 00:00:00 [facility] Twinrix (hep a/hep b) 2022-02-24 Completed Uni versity of 00:00:00 [facility] Twinrix (hep a/hep b) 2022-02-24 Completed [...] b) 2022-02-24 Completed Uni versity of 00:00:00 [place] [facility] Twinrix (hep a/hep b) 2022-02-24 Completed Uni versity of 00:00:00 [place] [facility] Twinrix (hep a/hep b) 2022-02-24 Completed Uni versity of 00:00:00 [facility] Twinrix (hep a/hep b) 2022-02-24 Completed Uni versity of 00:00:00 [facility] Twinrix (hep a/hep b) 2022-02-24 Completed Uni versity of 00:00:00 [place] [facility] Twinrix (hep a/hep b) 2022-02-24 Completed Uni versity of 00:00:00 [facility] Twinrix (hep a/hep b) 2022-02-24 Completed Uni versity of 00:00:00 [facility] Twinrix (hep a/hep b) 2022-02-24 Completed Uni versity of 00:00:00 [place] [facility] Twin[facility] (hep a/hep b) 2022-02-24 Completed Uni versity of 00:00:00 [place] [facility] Twin[facility] (hep a/hep b) 2022-02-24 Completed Uni versity of 00:00:00 [place] [facility] Twin[facility] (hep a/hep b) 2022-02-24 Completed Uni versity of 00:00:00 [place] [facility] Twin[facility] (hep a/hep b) 2022-02-24 Completed Uni versity of 00:00:00 [place] [facility] Twin[facility] (hep a/hep b) 2022-02-24 Completed Uni versity of 00:00:00 [place] [facility] Twin[facility] (hep a/hep b) 2022-02-24 Completed Uni versity of 00:00:00 [place] [facility] Twin[facility] (hep a/hep b) 2022-02-24 Completed Uni versity of 00:00:00 [place] [facility] Twin[facility] (hep a/hep b) 2022-02-24 Completed Uni versity of 00:00:00 [place] [facility] Twin[facility] (hep a/hep b) 2022-02-24 Completed Uni versity of 00:00:00 [place] [facility] Twin[facility] (hep a/hep b) 2022-02-24 Completed Uni versity of 00:00:00 [place] [facility] Twin[facility] (hep a/hep b) 2022-02-24 Completed Uni versity of 00:00:00 [facility] Twinrix (hep a/hep b) 2022-02-24 Completed Uni versity of 00:00:00 [facility] Twinrix (hep a/hep b) 2022-02-24 Completed Uni versity of 00:00:00 [facility] Twinrix (hep a/hep b) 2022-02-24 Completed Uni versity of 00:00:00 [facility] Twinrix (hep a/hep b) 2022-02-24 Completed Uni versity of 00:00:00 [facility] Twinrix (hep a/hep b) 2022-02-24 Completed Uni versity of 00:00:00 [facility] Twinrix (hep a/hep b) 2022-02-24 Completed Uni versity of 00:00:00 [facility] Twinrix (hep a/hep b) 2022-02-24 Completed Uni versity of 00:00:00 [facility] Twinrix (hep a/hep b) 2022-02-24 Completed Uni versity of 00:00:00 [facility] Twinrix (hep a/hep b) 2022-02-24 Completed Uni versity of 00:00:00 [facility] Twin[facility] (hep a/hep b) 2022-02-24 Completed Uni versity of 00:00:00 [facility] Twin[facility] (hep a/hep b) 2022-02-24 Completed Uni versity of 00:00:00 [facility] Twinrix (hep a/hep b) 2022-02-24 Completed Uni versity of 00:00:00 [place] [facility] (hep a/hep b) 2022-02-24 Completed Uni versity of 00:00:00 [place] [facility] (hep a/hep b) 2022-02-24 Completed Uni versity of 00:00:00 [place] [facility] (hep a/hep b) 2022-01-14 Completed Uni versity of 00:00:00 [place] [facility] (hep a/hep b) 2022-01-14 Completed Uni versity of 00:00:00 [facility] Twin[facility] (hep a/hep b) 2022-01-14 Completed Uni versity of 00:00:00 [place] [facility] (hep a/hep b) 2022-01-14 Completed Uni versity of 00:00:00 [facility] Twin[facility] (hep a/hep b) 2022-01-14 Completed Uni versity of 00:00:00 [facility] Twinrix (hep a/hep b) 2022-01-14 Completed Uni versity of 00:00:00 [facility] Twin[facility] (hep a/hep b) 2022-01-14 Completed Uni versity of 00:00:00 [place] [facility] Twin[facility] (hep a/hep b) 2022-01-14 Completed Uni versity of 00:00:00 [place] [facility] Twin[facility] (hep a/hep b) 2022-01-14 Completed Uni versity of 00:00:00 [facility] Twinrix (hep a/hep b) 2022-01-14 Completed Uni versity of 00:00:00 [place] [facility] (hep a/hep b) 2022-01-14 Completed Uni versity of 00:00:00 [place] [facility] (hep a/hep b) 2022-01-14 Completed Uni versity of 00:00:00 [place] [facility] (hep a/hep b) 2022-01-14 Completed Uni versity of 00:00:00 [facility] Twin[facility] (hep a/hep b) 2022-01-14 Completed Uni versity of 00:00:00 [place] [facility] (hep a/hep b) 2022-01-14 Completed Uni versity of 00:00:00 [facility] (hep a/hep b) 2022-01-14 Completed Uni versity of 00:00:00 [place] [facility] (hep a/hep b) 2022-01-14 Completed Uni versity of 00:00:00 [facility] (hep a/hep b) 2022-01-14 Completed Uni versity of 00:00:00 [place] [facility] (hep a/hep b) 2022-01-14 Completed Uni versity of 00:00:00 [facility] (hep a/hep b) 2022-01-14 Completed Uni versity of 00:00:00 [place] [facility] (hep a/hep b) 2022-01-14 Completed Uni versity of 00:00:00 [facility] Twin[facility] (hep a/hep b) 2022-01-14 Completed Uni versity of 00:00:00 [facility] Twin[facility] (hep a/hep b) 2022-01-14 Completed Uni versity of 00:00:00 [facility] Twin[facility] (hep a/hep b) 2022-01-14 Completed Uni versity of 00:00:00 [facility] Twin[facility] (hep a/hep b) 2022-01-14 Completed Uni versity of 00:00:00 [facility] Twin[facility] (hep a/hep b) 2022-01-14 Completed Uni versity of 00:00:00 [facility] Twin[facility] (hep a/hep b) 2022-01-14 Completed Uni versity of 00:00:00 [facility] Twin[facility] (hep a/hep b) 2022-01-14 Completed Uni versity of 00:00:00 [place] [facility] (hep a/hep b) 2022-01-14 Completed Uni versity of 00:00:00 [place] [facility] (hep a/hep b) 2022-01-14 Completed Uni versity of 00:00:00 [facility] (hep a/hep b) 2022-01-14 Completed Uni versity of 00:00:00 [facility] Twin[facility] (hep a/hep b) 2022-01-14 Completed [...] b) 2022-01-14 Completed Uni versity of 00:00:00 [facility] (hep a/hep b) 2022-01-14 Completed Uni versity of 00:00:00 [facility] (hep a/hep b) 2022-01-14 Completed Uni versity of 00:00:00 [facility] Twin[facility] (hep a/hep b) 2022-01-14 Completed Uni versity of 00:00:00 [facility] Twin[facility] (hep a/hep b) 2022-01-14 Completed Uni versity of 00:00:00 [place] [facility] (hep a/hep b) 2022-01-14 Completed Uni versity of 00:00:00 [facility] (hep a/hep b) 2022-01-14 Completed Uni versity of 00:00:00 [facility] (hep a/hep b) 2022-01-14 Completed Uni versity of 00:00:00 [place] [facility] (hep a/hep b) 2022-01-14 Completed Uni versity of 00:00:00 [place] [facility] (hep a/hep b) 2022-01-14 Completed [facility] 00:00:00 [facility] (hep a/hep b) 2022-01-14 Completed [facility] 00:00:00 [facility] (hep a/hep b) 2022-01-14 Completed [facility] 00:00:00 [facility] (hep a/hep b) 2022-01-14 [...] [facility] (hep a/hep b) 2022-01-14 Completed [facility] 00:00:00 [facility] (hep a/hep b) 2022-01-14 Completed [facility] 00:00:00 [facility] (hep a/hep b) 2022-01-14 Completed [facility] 00:00:00 [facility] (hep a/hep b) 2022-01-14 Completed [facility] 00:00:00 [facility] (hep a/hep b) 2022-01-14 Completed [facility] 00:00:00 [facility] (hep a/hep b) 2022-01-14 Completed [facility] 00:00:00 [facility] (hep a/hep b) 2022-01-14 Completed [...] [facility] (hep a/hep b) 2022-01-14 Completed [facility] 00:00:00 [facility] (hep a/hep b) 2022-01-14 Completed [facility] 00:00:00 [facility] (hep a/hep b) 2022-01-14 Completed [facility] 00:00:00 [facility] (hep a/hep b) 2022-01-14 Completed [facility] 00:00:00 [facility] (hep a/hep b) 2022-01-14 Completed [facility] 00:00:00 [facility] (hep a/hep b) 2022-01-14 Completed [facility] 00:00:00 [facility] (hep a/hep b) 2022-01-14 Completed [facility] 00:00:00 [facility] (hep a/hep b) 2022-01-14 Completed [facility] 00:00:00 [facility] (hep a/hep b) 2022-01-14 Completed [facility] 00:00:00 [facility] (hep a/hep b) 2022-01-14 Completed [facility] 00:00:00 [facility] (hep a/hep b) 2022-01-14 Completed [facility] 00:00:00 [facility] (hep a/hep b) 2022-01-14 Completed [facility] 00:00:00 [facility] (hep a/hep b) 2022-01-14 Completed [facility] 00:00:00 [facility] (hep a/hep b) 2022-01-14 Completed [facility] 00:00:00 [facility] (hep a/hep b) 2022-01-14 Completed [facility] 00:00:00 [facility] (hep a/hep b) 2022-01-14 Completed [facility] 00:00:00 [facility] SARS-COV-2 COVID-19 2021-07-23 Completed [facility] of PFIZER VACCINE 00:00:00 [facility] SARS-COV-2 COVID-19 2021-07-23 Completed [facility] of PFIZER VACCINE 00:00:00 [facility] SARS-COV-2 COVID-19 2021-07-23 Completed [facility] of PFIZER VACCINE 00:00:00 [facility] SARS-COV-2 COVID-19 2021-07-23 Completed [facility] of PFIZER VACCINE 00:00:00 [facility] SARS-COV-2 COVID-19 2021-07-23 Completed [facility] of PFIZER VACCINE 00:00:00 [facility] SARS-COV-2 COVID-19 2021-07-23 Completed [facility] of PFIZER VACCINE 00:00:00 [facility] SARS-COV-2 COVID-19 2021-07-23 Completed [facility] of PFIZER VACCINE 00:00:00 [facility] SARS-COV-2 COVID-19 2021-07-23 Completed [facility] of PFIZER VACCINE 00:00:00 [facility] SARS-COV-2 COVID-19 2021-07-23 Completed [facility] of PFIZER VACCINE 00:00:00 [facility] SARS-COV-2 COVID-19 2021-07-23 Completed [facility] of PFIZER VACCINE 00:00:00 [facility] SARS-COV-2 COVID-19 2021-07-23 Completed [facility] of PFIZER VACCINE 00:00:00 [facility] SARS-COV-2 COVID-19 2021-07-23 Completed [facility] of PFIZER VACCINE 00:00:00 [facility] SARS-COV-2 COVID-19 2021-07-23 Completed [facility] of PFIZER VACCINE 00:00:00 [facility] SARS-COV-2 COVID-19 2021-07-23 Completed [facility] of PFIZER VACCINE 00:00:00 [facility] SARS-COV-2 COVID-19 2021-07-23 Completed [facility] of PFIZER VACCINE 00:00:00 [facility] SARS-COV-2 COVID-19 2021-07-23 Completed [facility] of PFIZER VACCINE 00:00:00 [facility] SARS-COV-2 COVID-19 2021-07-23 Completed [facility] of PFIZER VACCINE 00:00:00 [facility] SARS-COV-2 COVID-19 2021-07-23 Completed [facility] of PFIZER VACCINE 00:00:00 [facility] SARS-COV-2 COVID-19 2021-07-23 Completed [facility] of PFIZER VACCINE 00:00:00 [facility] SARS-COV-2 COVID-19 2021-07-23 Completed [facility] of PFIZER VACCINE 00:00:00 [facility] SARS-COV-2 COVID-19 2021-07-23 Completed [facility] of PFIZER VACCINE 00:00:00 [facility] SARS-COV-2 COVID-19 2021-07-23 Completed [facility] of PFIZER VACCINE 00:00:00 [facility] SARS-COV-2 COVID-19 2021-07-23 Completed [facility] of PFIZER VACCINE 00:00:00 [facility] SARS-COV-2 COVID-19 2021-07-23 Completed [facility] of PFIZER VACCINE 00:00:00 [facility] SARS-COV-2 COVID-19 2021-07-23 Completed [facility] of PFIZER VACCINE 00:00:00 [facility] SARS-COV-2 COVID-19 2021-07-23 Completed [facility] of PFIZER VACCINE 00:00:00 [facility] SARS-COV-2 COVID-19 2021-07-23 Completed [facility] of PFIZER VACCINE 00:00:00 [facility] SARS-COV-2 COVID-19 2021-07-23 Completed [facility] of PFIZER VACCINE 00:00:00 [facility] SARS-COV-2 COVID-19 2021-07-23 Completed [facility] of PFIZER VACCINE 00:00:00 [facility] SARS-COV-2 COVID-19 2021-07-23 Completed [facility] of PFIZER VACCINE 00:00:00 [facility] SARS-COV-2 COVID-19 2021-07-23 Completed [facility] of PFIZER VACCINE 00:00:00 [facility] SARS-COV-2 COVID-19 2021-07-23 Completed [facility] of PFIZER VACCINE 00:00:00 [facility] SARS-COV-2 COVID-19 2021-07-23 Completed [facility] of PFIZER VACCINE 00:00:00 [facility] SARS-COV-2 COVID-19 2021-07-23 Completed [facility] of PFIZER VACCINE 00:00:00 [facility] SARS-COV-2 COVID-19 2021-07-23 Completed [facility] of PFIZER VACCINE 00:00:00 [facility] SARS-COV-2 COVID-19 2021-07-23 Completed [facility] of PFIZER VACCINE 00:00:00 [facility] SARS-COV-2 COVID-19 2021-07-23 Completed [facility] of PFIZER VACCINE 00:00:00 [facility] SARS-COV-2 COVID-19 2021-07-23 Completed [facility] of PFIZER VACCINE 00:00:00 [facility] SARS-COV-2 COVID-19 2021-07-23 Completed [facility] of PFIZER VACCINE 00:00:00 [facility] SARS-COV-2 COVID-19 2021-07-23 Completed [facility] of PFIZER VACCINE 00:00:00 [facility] SARS-COV-2 COVID-19 2021-07-23 Completed [facility] of PFIZER VACCINE 00:00:00 [facility] SARS-COV-2 COVID-19 2021-07-23 Completed [facility] of PFIZER VACCINE 00:00:00 [facility] SARS-COV-2 COVID-19 2021-07-23 Completed [facility] of PFIZER VACCINE 00:00:00 [facility] SARS-COV-2 COVID-19 2021-07-23 Completed [facility] of PFIZER VACCINE 00:00:00 [facility] SARS-COV-2 COVID-19 2021-07-23 Completed [facility] of PFIZER VACCINE 00:00:00 [facility] SARS-COV-2 COVID-19 2021-07-23 Completed [facility] of PFIZER VACCINE 00:00:00 [facility] SARS-COV-2 COVID-19 2021-07-23 Completed [facility] of PFIZER VACCINE 00:00:00 [facility] SARS-COV-2 COVID-19 2021-07-23 Completed [facility] of PFIZER VACCINE 00:00:00 [facility] SARS-COV-2 COVID-19 2021-07-23 Completed [facility] of PFIZER VACCINE 00:00:00 [facility] SARS-COV-2 COVID-19 2021-07-23 Completed [facility] of PFIZER VACCINE 00:00:00 [facility] SARS-COV-2 COVID-19 2021-07-23 Completed [facility] of PFIZER VACCINE 00:00:00 [facility] SARS-COV-2 COVID-19 2021-07-23 Completed [facility] of PFIZER VACCINE 00:00:00 [facility] SARS-COV-2 COVID-19 2021-07-23 Completed [facility] of PFIZER VACCINE 00:00:00 [facility] SARS-COV-2 COVID-19 2021-07-23 Completed [facility] of PFIZER VACCINE 00:00:00 [facility] SARS-COV-2 COVID-19 2021-07-23 Completed [facility] of PFIZER VACCINE 00:00:00 [facility] SARS-COV-2 COVID-19 2021-07-23 Completed [facility] of PFIZER VACCINE 00:00:00 [facility] SARS-COV-2 COVID-19 2021-07-23 Completed [facility] of PFIZER VACCINE 00:00:00 [facility] SARS-COV-2 COVID-19 2021-07-23 Completed [facility] of PFIZER VACCINE 00:00:00 [facility] SARS-COV-2 COVID-19 2021-07-23 Completed [facility] of PFIZER VACCINE 00:00:00 [facility] SARS-COV-2 COVID-19 2021-07-23 Completed [facility] of PFIZER VACCINE 00:00:00 [facility] SARS-COV-2 COVID-19 2021-07-23 Completed [facility] of PFIZER VACCINE 00:00:00 [facility] SARS-COV-2 COVID-19 2021-07-23 Completed [facility] of PFIZER VACCINE 00:00:00 [facility] SARS-COV-2 COVID-19 2021-07-23 Completed [facility] PFIZER VACCINE 00:00:00 [facility] SARS-COV-2 COVID-19 2021-07-23 Completed [facility] of PFIZER VACCINE 00:00:00 [facility] SARS-COV-2 COVID-19 2021-07-23 Completed [facility] of PFIZER VACCINE 00:00:00 [facility] SARS-COV-2 COVID-19 2021-07-23 Completed [facility] of PFIZER VACCINE 00:00:00 [facility] SARS-COV-2 COVID-19 2021-07-23 Completed [facility] of PFIZER VACCINE 00:00:00 [facility] SARS-COV-2 COVID-19 2021-07-23 Completed [facility] of PFIZER VACCINE 00:00:00 [facility] SARS-COV-2 COVID-19 2021-07-23 Completed [facility] of PFIZER VACCINE 00:00:00 [facility] SARS-COV-2 COVID-19 2021-07-23 Completed [facility] of PFIZER VACCINE 00:00:00 [facility] SARS-COV-2 COVID-19 2021-07-23 Completed [facility] of PFIZER VACCINE 00:00:00 [facility] SARS-COV-2 COVID-19 2021-07-23 Completed [facility] of PFIZER VACCINE 00:00:00 [facility] SARS-COV-2 COVID-19 2021-07-23 Completed [facility] of PFIZER VACCINE 00:00:00 [facility] SARS-COV-2 COVID-19 2021-07-23 Completed [facility] of PFIZER VACCINE 00:00:00 [facility] SARS-COV-2 COVID-19 2021-07-23 Completed [facility] of PFIZER VACCINE 00:00:00 [facility] SARS-COV-2 COVID-19 2021-07-23 Completed [facility] of PFIZER VACCINE 00:00:00 [facility] SARS-COV-2 COVID-19 2021-07-23 Completed [facility] of PFIZER VACCINE 00:00:00 [facility] SARS-COV-2 COVID-19 2021-07-23 Completed [facility] of PFIZER VACCINE 00:00:00 [facility] SARS-COV-2 COVID-19 2021-07-23 Completed [facility] of PFIZER VACCINE 00:00:00 [facility] SARS-COV-2 COVID-19 2021-07-23 Completed [facility] PFIZER VACCINE 00:00:00 [facility] SARS-COV-2 COVID-19 2021-07-23 Completed [facility] of PFIZER VACCINE 00:00:00 [facility] SARS-COV-2 COVID-19 2021-07-23 Completed [facility] of PFIZER VACCINE 00:00:00 [facility] Influenza Virus 2021-05-27 Completed [facility] Vaccine (3+ yrs) 00:00:00 [facility] Influenza Virus 2021-05-27 Completed [facility] of Vaccine (3+ yrs) 00:00:00 [facility] Influenza Virus 2021-05-27 Completed [facility] of Vaccine (3+ yrs) 00:00:00 [facility] Influenza Virus 2021-05-27 Completed [facility] of Vaccine (3+ yrs) 00:00:00 [facility] Influenza Virus 2021-05-27 Completed [facility] Vaccine (3+ yrs) 00:00:00 [facility] Influenza Virus 2021-05-27 Completed [facility] Vaccine (3+ yrs) 00:00:00 [facility] Influenza Virus 2021-05-27 Completed [facility] Vaccine (3+ yrs) 00:00:00 [facility] Influenza Virus 2021-05-27 Completed [facility] Vaccine (3+ yrs) 00:00:00 [facility] Influenza Virus 2021-05-27 Completed [facility] of Vaccine (3+ yrs) 00:00:00 [facility] Influenza Virus 2021-05-27 Completed [facility] of Vaccine (3+ yrs) 00:00:00 [facility] Influenza Virus 2021-05-27 Completed [facility] of Vaccine (3+ yrs) 00:00:00 [facility] Influenza Virus 2021-05-27 Completed [facility] of Vaccine (3+ yrs) 00:00:00 [facility] Influenza Virus 2021-05-27 Completed [facility] Vaccine (3+ yrs) 00:00:00 [facility] Influenza Virus 2021-05-27 Completed [facility] of Vaccine (3+ yrs) 00:00:00 [facility] Influenza Virus 2021-05-27 Completed [facility] Vaccine (3+ yrs) 00:00:00 [facility] Influenza Virus 2021-05-27 Completed [facility] Vaccine (3+ yrs) 00:00:00 [facility] Influenza Virus 2021-05-27 Completed [facility] of Vaccine (3+ yrs) 00:00:00 [facility] Influenza Virus 2021-05-27 Completed [facility] Vaccine (3+ yrs) 00:00:00 [facility] Influenza Virus 2021-05-27 Completed [facility] Vaccine (3+ yrs) 00:00:00 [facility] Influenza Virus 2021-05-27 Completed [facility] Vaccine (3+ yrs) 00:00:00 [facility] Influenza Virus 2021-05-27 Completed [facility] Vaccine (3+ yrs) 00:00:00 [facility] Influenza Virus 2021-05-27 Completed [facility] Vaccine (3+ yrs) 00:00:00 [facility] Influenza Virus 2021-05-27 Completed [facility] Vaccine (3+ yrs) 00:00:00 [facility] Influenza Virus 2021-05-27 Completed [facility] Vaccine (3+ yrs) 00:00:00 [facility] Influenza Virus 2021-05-27 Completed [facility] Vaccine (3+ yrs) 00:00:00 [facility] Influenza Virus 2021-05-27 Completed [facility] Vaccine (3+ yrs) 00:00:00 [facility] Influenza Virus 2021-05-27 Completed [facility] Vaccine (3+ yrs) 00:00:00 [facility] Influenza Virus 2021-05-27 Completed [facility] Vaccine (3+ yrs) 00:00:00 [facility] Influenza Virus 2021-05-27 Completed [facility] Vaccine (3+ yrs) 00:00:00 [facility] Influenza Virus 2021-05-27 Completed [facility] Vaccine (3+ yrs) 00:00:00 [facility] Influenza Virus 2021-05-27 Completed [facility] Vaccine (3+ yrs) 00:00:00 [facility] Influenza Virus 2021-05-27 Completed [facility] Vaccine (3+ yrs) 00:00:00 [facility] Influenza Virus 2021-05-27 Completed [facility] Vaccine (3+ yrs) 00:00:00 [facility] Influenza Virus 2021-05-27 Completed [facility] Vaccine (3+ yrs) 00:00:00 [facility] Influenza Virus 2021-05-27 Completed [facility] Vaccine (3+ yrs) 00:00:00 [facility] Influenza Virus 2021-05-27 Completed [facility] Vaccine (3+ yrs) 00:00:00 [facility] Influenza Virus 2021-05-27 Completed [facility] Vaccine (3+ yrs) 00:00:00 [facility] Influenza Virus 2021-05-27 Completed [facility] Vaccine (3+ yrs) 00:00:00 [facility] Influenza Virus 2021-05-27 Completed [facility] Vaccine (3+ yrs) 00:00:00 [facility] Influenza Virus 2021-05-27 Completed [facility] Vaccine (3+ yrs) 00:00:00 [facility] Influenza Virus 2021-05-27 Completed [facility] Vaccine (3+ yrs) 00:00:00 [facility] Influenza Virus 2021-05-27 Completed [facility] Vaccine (3+ yrs) 00:00:00 [facility] Influenza Virus 2021-05-27 Completed [facility] Vaccine (3+ yrs) 00:00:00 [facility] Influenza Virus 2021-05-27 Completed [facility] Vaccine (3+ yrs) 00:00:00 [facility] Influenza Virus 2021-05-27 Completed [facility] Vaccine (3+ yrs) 00:00:00 [facility] Influenza Virus 2021-05-27 Completed [facility] Vaccine (3+ yrs) 00:00:00 [facility] Influenza Virus 2021-05-27 Completed [facility] Vaccine (3+ yrs) 00:00:00 [facility] Influenza Virus 2021-05-27 Completed [facility] Vaccine (3+ yrs) 00:00:00 [facility] Influenza Virus 2021-05-27 Completed [facility] Vaccine (3+ yrs) 00:00:00 [facility] Influenza Virus 2021-05-27 Completed [facility] of Vaccine (3+ yrs) 00:00:00 [facility] Influenza Virus 2021-05-27 Completed [facility] Vaccine (3+ yrs) 00:00:00 [facility] Influenza Virus 2021-05-27 Completed [facility] Vaccine (3+ yrs) 00:00:00 [facility] Influenza Virus 2021-05-27 Completed [facility] Vaccine (3+ yrs) 00:00:00 [facility] Influenza Virus 2021-05-27 Completed [facility] Vaccine (3+ yrs) 00:00:00 [facility] Influenza Virus 2021-05-27 Completed [facility] Vaccine (3+ yrs) 00:00:00 [facility] Influenza Virus 2021-05-27 Completed [facility] Vaccine (3+ yrs) 00:00:00 [facility] Influenza Virus 2021-05-27 Completed [facility] Vaccine (3+ yrs) 00:00:00 [facility] Influenza Virus 2021-05-27 Completed [facility] Vaccine (3+ yrs) 00:00:00 [facility] Influenza Virus 2021-05-27 Completed [facility] Vaccine (3+ yrs) 00:00:00 [facility] Influenza Virus 2021-05-27 Completed [facility] Vaccine (3+ yrs) 00:00:00 [facility] Influenza Virus 2021-05-27 Completed [facility] Vaccine (3+ yrs) 00:00:00 [facility] Influenza Virus 2021-05-27 Completed [facility] Vaccine (3+ yrs) 00:00:00 [facility] Influenza Virus 2021-05-27 Completed [facility] Vaccine (3+ yrs) 00:00:00 [facility] Influenza Virus 2021-05-27 Completed [facility] Vaccine (3+ yrs) 00:00:00 [facility] Influenza Virus 2021-05-27 Completed [facility] Vaccine (3+ yrs) 00:00:00 [facility] Influenza Virus 2021-05-27 Completed [facility] Vaccine (3+ yrs) 00:00:00 [facility] Influenza Virus 2021-05-27 Completed [facility] Vaccine (3+ yrs) 00:00:00 [facility] Influenza Virus 2021-05-27 Completed [facility] Vaccine (3+ yrs) 00:00:00 [facility] Influenza Virus 2021-05-27 Completed [facility] Vaccine (3+ yrs) 00:00:00 [facility] Influenza Virus 2021-05-27 Completed [facility] Vaccine (3+ yrs) 00:00:00 [facility] Influenza Virus 2021-05-27 Completed [facility] Vaccine (3+ yrs) 00:00:00 [facility] Influenza Virus 2021-05-27 Completed [facility] Vaccine (3+ yrs) 00:00:00 [facility] Influenza Virus 2021-05-27 Completed [facility] Vaccine (3+ yrs) 00:00:00 [facility] Influenza Virus 2021-05-27 Completed [facility] Vaccine (3+ yrs) 00:00:00 [facility] Influenza Virus 2021-05-27 Completed [facility] Vaccine (3+ yrs) 00:00:00 [facility] Influenza Virus 2021-05-27 Completed [facility] Vaccine (3+ yrs) 00:00:00 [facility] Influenza Virus 2021-05-27 Completed [facility] Vaccine (3+ yrs) 00:00:00 [facility] Influenza Virus 2021-05-27 Completed [facility] Vaccine (3+ yrs) 00:00:00 [facility] Influenza Virus 2021-05-27 Completed [facility] Vaccine (3+ yrs) 00:00:00 [facility] Influenza Virus 2021-05-27 Completed [facility] Vaccine (3+ yrs) 00:00:00 [facility] Influenza Virus 2021-05-27 Completed [facility] Vaccine (3+ yrs) 00:00:00 [facility] Influenza Virus 2021-05-27 Completed [facility] Vaccine (3+ yrs) 00:00:00 [facility] SARS-COV-2 COVID-19 2020-12-13 Completed [facility] PFIZER VACCINE 00:00:00 [facility] SARS-COV-2 COVID-19 2020-12-13 Completed [facility] PFIZER VACCINE 00:00:00 [facility] SARS-COV-2 COVID-19 2020-12-13 Completed [facility] of PFIZER VACCINE 00:00:00 [facility] SARS-COV-2 COVID-19 2020-12-13 Completed [facility] PFIZER VACCINE 00:00:00 [facility] SARS-COV-2 COVID-19 2020-12-13 Completed [facility] of PFIZER VACCINE 00:00:00 [facility] SARS-COV-2 COVID-19 2020-12-13 Completed [facility] PFIZER VACCINE 00:00:00 [facility] SARS-COV-2 COVID-19 2020-12-13 Completed [facility] PFIZER VACCINE 00:00:00 [facility] SARS-COV-2 COVID-19 2020-12-13 Completed [facility] PFIZER VACCINE 00:00:00 [facility] SARS-COV-2 COVID-19 2020-12-13 Completed [facility] PFIZER VACCINE 00:00:00 [facility] SARS-COV-2 COVID-19 2020-12-13 Completed [facility] PFIZER VACCINE 00:00:00 [facility] SARS-COV-2 COVID-19 2020-12-13 Completed [facility] PFIZER VACCINE 00:00:00 [facility] SARS-COV-2 COVID-19 2020-12-13 Completed [facility] of PFIZER VACCINE 00:00:00 [facility] SARS-COV-2 COVID-19 2020-12-13 Completed [facility] PFIZER VACCINE 00:00:00 [facility] SARS-COV-2 COVID-19 2020-12-13 Completed [facility] PFIZER VACCINE 00:00:00 [facility] SARS-COV-2 COVID-19 2020-12-13 Completed [facility] PFIZER VACCINE 00:00:00 [facility] SARS-COV-2 COVID-19 2020-12-13 Completed [facility] PFIZER VACCINE 00:00:00 [facility] SARS-COV-2 COVID-19 2020-12-13 Completed [facility] PFIZER VACCINE 00:00:00 [facility] SARS-COV-2 COVID-19 2020-12-13 Completed [facility] PFIZER VACCINE 00:00:00 [facility] SARS-COV-2 COVID-19 2020-12-13 Completed [facility] PFIZER VACCINE 00:00:00 [facility] SARS-COV-2 COVID-19 2020-12-13 Completed [facility] PFIZER VACCINE 00:00:00 [facility] SARS-COV-2 COVID-19 2020-12-13 Completed [facility] PFIZER VACCINE 00:00:00 [facility] SARS-COV-2 COVID-19 2020-12-13 Completed [facility] PFIZER VACCINE 00:00:00 [facility] SARS-COV-2 COVID-19 2020-12-13 Completed [facility] PFIZER VACCINE 00:00:00 [facility] SARS-COV-2 COVID-19 2020-12-13 Completed [facility] PFIZER VACCINE 00:00:00 [facility] SARS-COV-2 COVID-19 2020-12-13 Completed [facility] PFIZER VACCINE 00:00:00 [facility] SARS-COV-2 COVID-19 2020-12-13 Completed [facility] PFIZER VACCINE 00:00:00 [facility] SARS-COV-2 COVID-19 2020-12-13 Completed [facility] PFIZER VACCINE 00:00:00 [facility] SARS-COV-2 COVID-19 2020-12-13 Completed [facility] PFIZER VACCINE 00:00:00 [facility] SARS-COV-2 COVID-19 2020-12-13 Completed [facility] PFIZER VACCINE 00:00:00 [facility] SARS-COV-2 COVID-19 2020-12-13 Completed [facility] PFIZER VACCINE 00:00:00 [facility] SARS-COV-2 COVID-19 2020-12-13 Completed [facility] PFIZER VACCINE 00:00:00 [facility] SARS-COV-2 COVID-19 2020-12-13 Completed [facility] PFIZER VACCINE 00:00:00 [facility] SARS-COV-2 COVID-19 2020-12-13 Completed [facility] PFIZER VACCINE 00:00:00 [facility] SARS-COV-2 COVID-19 2020-12-13 Completed [facility] PFIZER VACCINE 00:00:00 [place] [facility] SARS-COV-2 COVID-19 2020-12-13 Completed [facility] PFIZER VACCINE 00:00:00 [facility] SARS-COV-2 COVID-19 2020-12-13 Completed [facility] PFIZER VACCINE 00:00:00 [facility] SARS-COV-2 COVID-19 2020-12-13 Completed [facility] PFIZER VACCINE 00:00:00 [facility] SARS-COV-2 COVID-19 2020-12-13 Completed [facility] PFIZER VACCINE 00:00:00 [facility] SARS-COV-2 COVID-19 2020-12-13 Completed [facility] PFIZER VACCINE 00:00:00 [facility] SARS-COV-2 COVID-19 2020-12-13 Completed [facility] PFIZER VACCINE 00:00:00 [facility] SARS-COV-2 COVID-19 2020-12-13 Completed [facility] PFIZER VACCINE 00:00:00 [facility] SARS-COV-2 COVID-19 2020-12-13 Completed [facility] PFIZER VACCINE 00:00:00 [facility] SARS-COV-2 COVID-19 2020-12-13 Completed [facility] PFIZER VACCINE 00:00:00 [facility] SARS-COV-2 COVID-19 2020-12-13 Completed [facility] PFIZER VACCINE 00:00:00 [facility] SARS-COV-2 COVID-19 2020-12-13 Completed [facility] PFIZER VACCINE 00:00:00 [facility] SARS-COV-2 COVID-19 2020-12-13 Completed [facility] PFIZER VACCINE 00:00:00 [facility] SARS-COV-2 COVID-19 2020-12-13 Completed [facility] PFIZER VACCINE 00:00:00 [facility] SARS-COV-2 COVID-19 2020-12-13 Completed [facility] PFIZER VACCINE 00:00:00 [facility] SARS-COV-2 COVID-19 2020-12-13 Completed [facility] PFIZER VACCINE 00:00:00 [facility] SARS-COV-2 COVID-19 2020-12-13 Completed [facility] PFIZER VACCINE 00:00:00 [facility] SARS-COV-2 COVID-19 2020-12-13 Completed [facility] PFIZER VACCINE 00:00:00 [facility] SARS-COV-2 COVID-19 2020-12-13 Completed [facility] PFIZER VACCINE 00:00:00 [facility] SARS-COV-2 COVID-19 2020-12-13 Completed [facility] PFIZER VACCINE 00:00:00 [facility] SARS-COV-2 COVID-19 2020-12-13 Completed [facility] PFIZER VACCINE 00:00:00 [facility] SARS-COV-2 COVID-19 2020-12-13 Completed [facility] PFIZER VACCINE 00:00:00 [facility] SARS-COV-2 COVID-19 2020-12-13 Completed [facility] PFIZER VACCINE 00:00:00 [facility] SARS-COV-2 COVID-19 2020-12-13 Completed [facility] PFIZER VACCINE 00:00:00 [facility] SARS-COV-2 COVID-19 2020-12-13 Completed [facility] PFIZER VACCINE 00:00:00 [facility] SARS-COV-2 COVID-19 2020-12-13 Completed [facility] PFIZER VACCINE 00:00:00 [facility] SARS-COV-2 COVID-19 2020-12-13 Completed [facility] PFIZER VACCINE 00:00:00 [facility] SARS-COV-2 COVID-19 2020-12-13 Completed [facility] PFIZER VACCINE 00:00:00 [facility] SARS-COV-2 COVID-19 2020-12-13 Completed [facility] PFIZER VACCINE 00:00:00 [facility] SARS-COV-2 COVID-19 2020-12-13 Completed [facility] PFIZER VACCINE 00:00:00 [facility] SARS-COV-2 COVID-19 2020-12-13 Completed [facility] PFIZER VACCINE 00:00:00 [place] [facility] SARS-COV-2 COVID-19 2020-12-13 Completed [facility] PFIZER VACCINE 00:00:00 [facility] SARS-COV-2 COVID-19 2020-12-13 Completed [facility] PFIZER VACCINE 00:00:00 [facility] SARS-COV-2 COVID-19 2020-12-13 Completed [facility] PFIZER VACCINE 00:00:00 [facility] SARS-COV-2 COVID-19 2020-12-13 Completed [facility] PFIZER VACCINE 00:00:00 [facility] SARS-COV-2 COVID-19 2020-12-13 Completed [facility] PFIZER VACCINE 00:00:00 [facility] SARS-COV-2 COVID-19 2020-12-13 Completed [facility] PFIZER VACCINE 00:00:00 [facility] SARS-COV-2 COVID-19 2020-12-13 Completed [facility] PFIZER VACCINE 00:00:00 [facility] SARS-COV-2 COVID-19 2020-12-13 Completed [facility] PFIZER VACCINE 00:00:00 [facility] SARS-COV-2 COVID-19 2020-12-13 Completed [facility] PFIZER VACCINE 00:00:00 [facility] SARS-COV-2 COVID-19 2020-12-13 Completed [facility] PFIZER VACCINE 00:00:00 [facility] SARS-COV-2 COVID-19 2020-12-13 Completed [facility] PFIZER VACCINE 00:00:00 [facility] SARS-COV-2 COVID-19 2020-12-13 Completed [facility] PFIZER VACCINE 00:00:00 [facility] SARS-COV-2 COVID-19 2020-12-13 Completed [facility] PFIZER VACCINE 00:00:00 [facility] SARS-COV-2 COVID-19 2020-12-13 Completed [facility] PFIZER VACCINE 00:00:00 [facility] SARS-COV-2 COVID-19 2020-12-13 Completed [facility] PFIZER VACCINE 00:00:00 [facility] SARS-COV-2 COVID-19 2020-12-13 Completed [facility] PFIZER VACCINE 00:00:00 [facility] SARS-COV-2 COVID-19 2020-12-13 Completed [facility] PFIZER VACCINE 00:00:00 [facility] SARS-COV-2 COVID-19 2020-12-13 Completed [facility] PFIZER VACCINE 00:00:00 [facility] SARS-COV-2 COVID-19 2020-11-22 Completed [facility] PFIZER VACCINE 00:00:00 [facility] SARS-COV-2 COVID-19 2020-11-22 Completed [facility] PFIZER VACCINE 00:00:00 [facility] SARS-COV-2 COVID-19 2020-11-22 Completed [facility] PFIZER VACCINE 00:00:00 [facility] SARS-COV-2 COVID-19 2020-11-22 Completed [facility] PFIZER VACCINE 00:00:00 [facility] SARS-COV-2 COVID-19 2020-11-22 Completed [facility] PFIZER VACCINE 00:00:00 [facility] SARS-COV-2 COVID-19 2020-11-22 Completed [facility] PFIZER VACCINE 00:00:00 [facility] SARS-COV-2 COVID-19 2020-11-22 Completed [facility] PFIZER VACCINE 00:00:00 [facility] SARS-COV-2 COVID-19 2020-11-22 Completed [facility] PFIZER VACCINE 00:00:00 [facility] SARS-COV-2 COVID-19 2020-11-22 Completed [facility] PFIZER VACCINE 00:00:00 [facility] SARS-COV-2 COVID-19 2020-11-22 Completed [facility] PFIZER VACCINE 00:00:00 [facility] SARS-COV-2 COVID-19 2020-11-22 Completed [facility] PFIZER VACCINE 00:00:00 [facility] SARS-COV-2 COVID-19 2020-11-22 Completed [facility] PFIZER VACCINE 00:00:00 [facility] SARS-COV-2 COVID-19 2020-11-22 Completed [facility] PFIZER VACCINE 00:00:00 [facility] SARS-COV-2 COVID-19 2020-11-22 Completed [facility] PFIZER VACCINE 00:00:00 [facility] SARS-COV-2 COVID-19 2020-11-22 Completed [facility] PFIZER VACCINE 00:00:00 [facility] SARS-COV-2 COVID-19 2020-11-22 Completed [facility] PFIZER VACCINE 00:00:00 [facility] SARS-COV-2 COVID-19 2020-11-22 Completed [facility] PFIZER VACCINE 00:00:00 [facility] SARS-COV-2 COVID-19 2020-11-22 Completed [facility] PFIZER VACCINE 00:00:00 [facility] SARS-COV-2 COVID-19 2020-11-22 Completed [facility] PFIZER VACCINE 00:00:00 [facility] SARS-COV-2 COVID-19 2020-11-22 Completed [facility] PFIZER VACCINE 00:00:00 [facility] SARS-COV-2 COVID-19 2020-11-22 Completed [facility] PFIZER VACCINE 00:00:00 [facility] SARS-COV-2 COVID-19 2020-11-22 Completed [facility] PFIZER VACCINE 00:00:00 [facility] SARS-COV-2 COVID-19 2020-11-22 Completed [facility] PFIZER VACCINE 00:00:00 [facility] SARS-COV-2 COVID-19 2020-11-22 Completed [facility] PFIZER VACCINE 00:00:00 [facility] SARS-COV-2 COVID-19 2020-11-22 Completed [facility] PFIZER VACCINE 00:00:00 [facility] SARS-COV-2 COVID-19 2020-11-22 Completed [facility] PFIZER VACCINE 00:00:00 [facility] SARS-COV-2 COVID-19 2020-11-22 Completed [facility] PFIZER VACCINE 00:00:00 [facility] SARS-COV-2 COVID-19 2020-11-22 Completed [facility] PFIZER VACCINE 00:00:00 [facility] SARS-COV-2 COVID-19 2020-11-22 Completed [facility] PFIZER VACCINE 00:00:00 [facility] SARS-COV-2 COVID-19 2020-11-22 Completed [facility] PFIZER VACCINE 00:00:00 [facility] SARS-COV-2 COVID-19 2020-11-22 Completed [facility] PFIZER VACCINE 00:00:00 [facility] SARS-COV-2 COVID-19 2020-11-22 Completed [facility] PFIZER VACCINE 00:00:00 [facility] SARS-COV-2 COVID-19 2020-11-22 Completed [facility] PFIZER VACCINE 00:00:00 [facility] SARS-COV-2 COVID-19 2020-11-22 Completed [facility] PFIZER VACCINE 00:00:00 [facility] SARS-COV-2 COVID-19 2020-11-22 Completed [facility] PFIZER VACCINE 00:00:00 [facility] SARS-COV-2 COVID-19 2020-11-22 Completed [facility] PFIZER VACCINE 00:00:00 [facility] SARS-COV-2 COVID-19 2020-11-22 Completed [facility] PFIZER VACCINE 00:00:00 [facility] SARS-COV-2 COVID-19 2020-11-22 Completed [facility] PFIZER VACCINE 00:00:00 [facility] SARS-COV-2 COVID-19 2020-11-22 Completed [facility] PFIZER VACCINE 00:00:00 [facility] SARS-COV-2 COVID-19 2020-11-22 Completed [facility] PFIZER VACCINE 00:00:00 [facility] SARS-COV-2 COVID-19 2020-11-22 Completed [facility] PFIZER VACCINE 00:00:00 [facility] SARS-COV-2 COVID-19 2020-11-22 Completed [facility] PFIZER VACCINE 00:00:00 [facility] SARS-COV-2 COVID-19 2020-11-22 Completed [facility] PFIZER VACCINE 00:00:00 [facility] SARS-COV-2 COVID-19 2020-11-22 Completed [facility] PFIZER VACCINE 00:00:00 [facility] SARS-COV-2 COVID-19 2020-11-22 Completed [facility] PFIZER VACCINE 00:00:00 [facility] SARS-COV-2 COVID-19 2020-11-22 Completed [facility] PFIZER VACCINE 00:00:00 [facility] SARS-COV-2 COVID-19 2020-11-22 Completed [facility] PFIZER VACCINE 00:00:00 [facility] SARS-COV-2 COVID-19 2020-11-22 Completed [facility] PFIZER VACCINE 00:00:00 [facility] SARS-COV-2 COVID-19 2020-11-22 Completed [facility] PFIZER VACCINE 00:00:00 [facility] SARS-COV-2 COVID-19 2020-11-22 Completed [facility] PFIZER VACCINE 00:00:00 [facility] SARS-COV-2 COVID-19 2020-11-22 Completed [facility] PFIZER VACCINE 00:00:00 [facility] SARS-COV-2 COVID-19 2020-11-22 Completed [facility] PFIZER VACCINE 00:00:00 [facility] SARS-COV-2 COVID-19 2020-11-22 Completed [facility] PFIZER VACCINE 00:00:00 [facility] SARS-COV-2 COVID-19 2020-11-22 Completed [facility] PFIZER VACCINE 00:00:00 [facility] SARS-COV-2 COVID-19 2020-11-22 Completed [facility] PFIZER VACCINE 00:00:00 [facility] SARS-COV-2 COVID-19 2020-11-22 Completed [facility] PFIZER VACCINE 00:00:00 [facility] SARS-COV-2 COVID-19 2020-11-22 Completed [facility] PFIZER VACCINE 00:00:00 [facility] SARS-COV-2 COVID-19 2020-11-22 Completed [facility] PFIZER VACCINE 00:00:00 [facility] SARS-COV-2 COVID-19 2020-11-22 Completed [facility] PFIZER VACCINE 00:00:00 [facility] SARS-COV-2 COVID-19 2020-11-22 Completed [facility] PFIZER VACCINE 00:00:00 [facility] SARS-COV-2 COVID-19 2020-11-22 Completed [facility] PFIZER VACCINE 00:00:00 [facility] SARS-COV-2 COVID-19 2020-11-22 Completed [facility] PFIZER VACCINE 00:00:00 [facility] SARS-COV-2 COVID-19 2020-11-22 Completed [facility] PFIZER VACCINE 00:00:00 [facility] SARS-COV-2 COVID-19 2020-11-22 Completed [facility] PFIZER VACCINE 00:00:00 [facility] SARS-COV-2 COVID-19 2020-11-22 Completed [facility] PFIZER VACCINE 00:00:00 [facility] SARS-COV-2 COVID-19 2020-11-22 Completed [facility] PFIZER VACCINE 00:00:00 [facility] SARS-COV-2 COVID-19 2020-11-22 Completed [facility] PFIZER VACCINE 00:00:00 [facility] SARS-COV-2 COVID-19 2020-11-22 Completed [facility] PFIZER VACCINE 00:00:00 [facility] SARS-COV-2 COVID-19 2020-11-22 Completed [facility] PFIZER VACCINE 00:00:00 [facility] SARS-COV-2 COVID-19 2020-11-22 Completed [facility] PFIZER VACCINE 00:00:00 [facility] SARS-COV-2 COVID-19 2020-11-22 Completed [facility] PFIZER VACCINE 00:00:00 [facility] SARS-COV-2 COVID-19 2020-11-22 Completed [facility] PFIZER VACCINE 00:00:00 [facility] SARS-COV-2 COVID-19 2020-11-22 Completed [facility] PFIZER VACCINE 00:00:00 [facility] SARS-COV-2 COVID-19 2020-11-22 Completed [facility] PFIZER VACCINE 00:00:00 [facility] SARS-COV-2 COVID-19 2020-11-22 Completed [facility] PFIZER VACCINE 00:00:00 [facility] SARS-COV-2 COVID-19 2020-11-22 Completed [facility] PFIZER VACCINE 00:00:00 [facility] SARS-COV-2 COVID-19 2020-11-22 Completed [facility] PFIZER VACCINE 00:00:00 [facility] SARS-COV-2 COVID-19 2020-11-22 Completed [facility] PFIZER VACCINE 00:00:00 [facility] SARS-COV-2 COVID-19 2020-11-22 Completed [facility] PFIZER VACCINE 00:00:00 [facility] SARS-COV-2 COVID-19 2020-11-22 Completed [facility] PFIZER VACCINE 00:00:00 [facility] SARS-COV-2 COVID-19 2020-11-22 Completed [facility] PFIZER VACCINE 00:00:00 [facility] SARS-COV-2 COVID-19 2020-11-22 Completed [facility] PFIZER VACCINE 00:00:00 [facility] Influenza Virus 2020-05-27 Completed [facility] [...] 2019-08-10 Completed [facility] Polysaccharide, 00:00:00 [place] [facility] PPSV23 (PNEUMOVAX) [facility] TDAP (ADACEL) VACCINE 2019-08-10 Completed [facility] 00:00:00 [facility] TDAP 2019-08-10 Completed [facility] 00:00:00 [facility] Pneumococcal 2019-08-10 Completed [facility] f Polysaccharide, 00:00:00 [place] [facility] PPSV23 (PNEUMOVAX) [facility] TDAP (ADACEL) VACCINE 2019-08-10 Completed [facility] 00:00:00 [facility] TDAP 2019-08-10 Completed [facility] 00:00:00 [facility] Pneumococcal 2019-08-10 Completed [facility] o f Polysaccharide, 00:00:00 [place] [facility] PPSV23 (PNEUMOVAX) [facility] TDAP (ADACEL) VACCINE 2019-08-10 Completed [facility] 00:00:00 [facility] TDAP 2019-08-10 Completed [facility] 00:00:00 [facility] Pneumococcal 2019-08-10 Completed [facility] f Polysaccharide, 00:00:00 [place] [facility] PPSV23 (PNEUMOVAX) [facility] TDAP (ADACEL) VACCINE 2019-08-10 Completed [facility] 00:00:00 [facility] TDAP 2019-08-10 Completed [facility] 00:00:00 [facility] Pneumococcal 2019-08-10 Completed [facility] f Polysaccharide, 00:00:00 [place] [facility] PPSV23 (PNEUMOVAX) [facility] TDAP (ADACEL) VACCINE 2019-08-10 Completed [facility] 00:00:00 [facility] TDAP 2019-08-10 Completed [facility] 00:00:00 [facility] Pneumococcal 2019-08-10 Completed [facility] o f Polysaccharide, 00:00:00 [place] [facility] PPSV23 (PNEUMOVAX) [facility] TDAP (ADACEL) VACCINE 2019-08-10 Completed [facility] 00:00:00 [facility] TDAP 2019-08-10 Completed [facility] 00:00:00 [facility] Pneumococcal 2019-08-10 Completed [facility] f Polysaccharide, 00:00:00 [place] [facility] PPSV23 (PNEUMOVAX) Branch TDAP (ADACEL) VACCINE 2019-08-10 Completed [facility] 00:00:00 [facility] TDAP 2019-08-10 Completed [facility] 00:00:00 [facility] Pneumococcal 2019-08-10 Completed [facility] o f Polysaccharide, 00:00:00 [place] [facility] PPSV23 (PNEUMOVAX) [facility] TDAP (ADACEL) VACCINE 2019-08-10 Completed [facility] 00:00:00 [facility] TDAP 2019-08-10 Completed [facility] 00:00:00 [facility] Pneumococcal 2019-08-10 Completed [facility] o f Polysaccharide, 00:00:00 [place] [facility] PPSV23 (PNEUMOVAX) Branch TDAP (ADACEL) VACCINE 2019-08-10 Completed [facility] 00:00:00 [facility] TDAP 2019-08-10 Completed [facility] 00:00:00 [facility] Pneumococcal 2019-08-10 Completed [facility] o f Polysaccharide, 00:00:00 [place] [facility] PPSV23 (PNEUMOVAX) Branch TDAP (ADACEL) VACCINE 2019-08-10 Completed [facility] 00:00:00 [facility] TDAP 2019-08-10 Completed [facility] 00:00:00 [facility] Pneumococcal 2019-08-10 Completed [facility] o f Polysaccharide, 00:00:00 [place] [facility] PPSV23 (PNEUMOVAX) Branch TDAP (ADACEL) VACCINE 2019-08-10 Completed [facility] 00:00:00 [facility] TDAP 2019-08-10 Completed [facility] 00:00:00 [facility] Pneumococcal 2019-08-10 Completed [facility] o f Polysaccharide, 00:00:00 [place] [facility] PPSV23 (PNEUMOVAX) [facility] TDAP (ADACEL) VACCINE 2019-08-10 Completed [facility] 00:00:00 [facility] TDAP 2019-08-10 Completed [facility] 00:00:00 [facility] Pneumococcal 2019-08-10 Completed [facility] o f Polysaccharide, 00:00:00 [place] [facility] PPSV23 (PNEUMOVAX) Branch TDAP (ADACEL) VACCINE 2019-08-10 Completed [facility] 00:00:00 [facility] TDAP 2019-08-10 Completed [facility] 00:00:00 [facility] Pneumococcal 2019-08-10 Completed [facility] o f Polysaccharide, 00:00:00 [place] [facility] PPSV23 (PNEUMOVAX) Branch TDAP (ADACEL) VACCINE 2019-08-10 Completed [facility] 00:00:00 [facility] TDAP 2019-08-10 Completed [facility] 00:00:00 [facility] Pneumococcal 2019-08-10 Completed [facility] o f Polysaccharide, 00:00:00 [place] [facility] PPSV23 (PNEUMOVAX) Branch TDAP (ADACEL) VACCINE 2019-08-10 Completed [facility] 00:00:00 [facility] TDAP 2019-08-10 Completed [facility] 00:00:00 [facility] Pneumococcal 2019-08-10 Completed [facility] o f Polysaccharide, 00:00:00 [place] [facility] PPSV23 (PNEUMOVAX) Branch TDAP (ADACEL) VACCINE 2019-08-10 Completed [facility] 00:00:00 [facility] TDAP 2019-08-10 Completed [facility] 00:00:00 [facility] Pneumococcal 2019-08-10 Completed University o f Polysaccharide, 00:00:00 [place] [facility] PPSV23 (PNEUMOVAX) [facility] TDAP (ADACEL) VACCINE 2019-08-10 Completed [facility] 00:00:00 [facility] TDAP 2019-08-10 Completed [facility] 00:00:00 [facility] Pneumococcal 2019-08-10 Completed [facility] o f Polysaccharide, 00:00:00 [place] [facility] PPSV23 (PNEUMOVAX) [facility] TDAP (ADACEL) VACCINE 2019-08-10 Completed [facility] 00:00:00 [facility] TDAP 2019-08-10 Completed [facility] 00:00:00 [facility] Pneumococcal 2019-08-10 Completed University o f Polysaccharide, 00:00:00 [place] [facility] PPSV23 (PNEUMOVAX) [facility] TDAP (ADACEL) VACCINE 2019-08-10 Completed [facility] 00:00:00 [facility] TDAP 2019-08-10 Completed [facility] 00:00:00 [facility] Pneumococcal 2019-08-10 Completed [facility] o f Polysaccharide, 00:00:00 [place] [facility] PPSV23 (PNEUMOVAX) [facility] TDAP (ADACEL) VACCINE 2019-08-10 Completed [facility] 00:00:00 [facility] TDAP 2019-08-10 Completed [facility] 00:00:00 [facility] Pneumococcal 2019-08-10 Completed [facility] o f Polysaccharide, 00:00:00 [facility] PPSV23 (PNEUMOVAX) [facility] TDAP (ADACEL) VACCINE 2019-08-10 Completed [facility] 00:00:00 [facility] TDAP 2019-08-10 Completed [facility] 00:00:00 [facility] Pneumococcal 2019-08-10 Completed [facility] o f Polysaccharide, 00:00:00 [facility] PPSV23 (PNEUMOVAX) [facility] TDAP (ADACEL) VACCINE 2019-08-10 Completed [facility] 00:00:00 [facility] TDAP 2019-08-10 Completed [facility] 00:00:00 [facility] Pneumococcal 2019-08-10 Completed [facility] o f Polysaccharide, 00:00:00 [facility] PPSV23 (PNEUMOVAX) Branch TDAP (ADACEL) VACCINE 2019-08-10 Completed [facility] 00:00:00 [facility] TDAP 2019-08-10 Completed [facility] 00:00:00 [facility] Pneumococcal 2019-08-10 Completed [facility] o f Polysaccharide, 00:00:00 [facility] PPSV23 (PNEUMOVAX) [facility] TDAP (ADACEL) VACCINE 2019-08-10 Completed [facility] 00:00:00 [facility] TDAP 2019-08-10 Completed [facility] 00:00:00 [facility] Pneumococcal 2019-08-10 Completed [facility] o [facility] Polysaccharide, 00:00:00 [place] [facility] PPSV23 (PNEUMOVAX) [facility] TDAP (ADACEL) VACCINE 2019-08-10 Completed [facility] 00:00:00 [facility] TDAP 2019-08-10 Completed [facility] 00:00:00 [facility] Pneumococcal 2019-08-10 Completed [facility] o f Polysaccharide, 00:00:00 [place] [facility] PPSV23 (PNEUMOVAX) Branch TDAP (ADACEL) VACCINE 2019-08-10 Completed [facility] 00:00:00 [facility] TDAP 2019-08-10 Completed [facility] 00:00:00 [facility] Pneumococcal 2019-08-10 Completed [facility] o f Polysaccharide, 00:00:00 [place] [facility] PPSV23 (PNEUMOVAX) Branch TDAP (ADACEL) VACCINE 2019-08-10 Completed [facility] 00:00:00 [facility] TDAP 2019-08-10 Completed [facility] 00:00:00 [facility] Pneumococcal 2019-08-10 Completed [facility] o f Polysaccharide, 00:00:00 [place] [facility] PPSV23 (PNEUMOVAX) Branch TDAP (ADACEL) VACCINE 2019-08-10 Completed [facility] 00:00:00 [facility] TDAP 2019-08-10 Completed [facility] 00:00:00 [facility] Pneumococcal 2019-08-10 Completed [facility] o f Polysaccharide, 00:00:00 [facility] PPSV23 (PNEUMOVAX) [facility] TDAP (ADACEL) VACCINE 2019-08-10 Completed [facility] 00:00:00 [facility] TDAP 2019-08-10 Completed [facility] 00:00:00 [facility] Pneumococcal 2019-08-10 Completed [facility] o f Polysaccharide, 00:00:00 [place] [facility] PPSV23 (PNEUMOVAX) Branch TDAP (ADACEL) VACCINE 2019-08-10 Completed [facility] 00:00:00 [facility] TDAP 2019-08-10 Completed [facility] 00:00:00 [facility] Pneumococcal 2019-08-10 Completed [facility] o f Polysaccharide, 00:00:00 [place] [facility] PPSV23 (PNEUMOVAX) [facility] TDAP (ADACEL) VACCINE 2019-08-10 Completed [facility] 00:00:00 [facility] TDAP 2019-08-10 Completed [facility] 00:00:00 [facility] Pneumococcal 2019-08-10 Completed [facility] o f Polysaccharide, 00:00:00 [place] [facility] PPSV23 (PNEUMOVAX) [facility] TDAP (ADACEL) VACCINE 2019-08-10 Completed [facility] 00:00:00 [facility] TDAP 2019-08-10 Completed [facility] 00:00:00 [facility] Pneumococcal 2019-08-10 Completed [facility] o f Polysaccharide, 00:00:00 [place] [facility] PPSV23 (PNEUMOVAX) Branch TDAP (ADACEL) VACCINE 2019-08-10 Completed [facility] 00:00:00 [facility] TDAP 2019-08-10 Completed [facility] 00:00:00 [facility] Pneumococcal 2019-08-10 Completed [facility] o f Polysaccharide, 00:00:00 [facility] PPSV23 (PNEUMOVAX) [facility] TDAP (ADACEL) VACCINE 2019-08-10 Completed [facility] 00:00:00 [facility] TDAP 2019-08-10 Completed [facility] 00:00:00 [facility] Pneumococcal 2019-08-10 Completed [facility] o f Polysaccharide, 00:00:00 [facility] PPSV23 (PNEUMOVAX) [facility] TDAP (ADACEL) VACCINE 2019-08-10 Completed [facility] 00:00:00 [facility] TDAP 2019-08-10 Completed [facility] 00:00:00 [facility] Pneumococcal 2019-08-10 Completed [facility] o f Polysaccharide, 00:00:00 [facility] PPSV23 (PNEUMOVAX) [facility] TDAP (ADACEL) VACCINE 2019-08-10 Completed [facility] 00:00:00 [facility] TDAP 2019-08-10 Completed [facility] 00:00:00 [facility] Pneumococcal 2019-08-10 Completed [facility] o f Polysaccharide, 00:00:00 [facility] PPSV23 (PNEUMOVAX) [facility] TDAP (ADACEL) VACCINE 2019-08-10 Completed [facility] 00:00:00 [facility] TDAP 2019-08-10 Completed [facility] 00:00:00 [facility] Pneumococcal 2019-08-10 Completed [facility] o f Polysaccharide, 00:00:00 [facility] PPSV23 (PNEUMOVAX) [facility] TDAP (ADACEL) VACCINE 2019-08-10 Completed [facility] 00:00:00 [facility] TDAP 2019-08-10 Completed [facility] 00:00:00 [facility] Pneumococcal 2019-08-10 Completed [facility] o f Polysaccharide, 00:00:00 [place] [facility] PPSV23 (PNEUMOVAX) [facility] TDAP (ADACEL) VACCINE 2019-08-10 Completed [facility] 00:00:00 [facility] TDAP 2019-08-10 Completed [facility] 00:00:00 [facility] Pneumococcal 2019-08-10 Completed [facility] o f Polysaccharide, 00:00:00 [place] [facility] PPSV23 (PNEUMOVAX) Branch TDAP (ADACEL) VACCINE 2019-08-10 Completed [facility] 00:00:00 [facility] TDAP 2019-08-10 Completed [facility] 00:00:00 [facility] Pneumococcal 2019-08-10 Completed [facility] o f Polysaccharide, 00:00:00 [facility] PPSV23 (PNEUMOVAX) [facility] TDAP (ADACEL) VACCINE 2019-08-10 Completed [facility] 00:00:00 [facility] TDAP 2019-08-10 Completed [facility] 00:00:00 [facility] Pneumococcal 2019-08-10 Completed [facility] o f Polysaccharide, 00:00:00 [facility] PPSV23 (PNEUMOVAX) [facility] TDAP (ADACEL) VACCINE 2019-08-10 Completed [facility] 00:00:00 [facility] TDAP 2019-08-10 Completed [facility] 00:00:00 [facility] Pneumococcal 2019-08-10 Completed [facility] o f Polysaccharide, 00:00:00 [facility] PPSV23 (PNEUMOVAX) [facility] TDAP (ADACEL) VACCINE 2019-08-10 Completed [facility] 00:00:00 [facility] TDAP 2019-08-10 Completed [facility] 00:00:00 [facility] Pneumococcal 2019-08-10 Completed [facility] o f Polysaccharide, 00:00:00 [facility] PPSV23 (PNEUMOVAX) [facility] TDAP (ADACEL) VACCINE 2019-08-10 Completed [facility] 00:00:00 [facility] TDAP 2019-08-10 Completed [facility] 00:00:00 [facility] Pneumococcal 2019-08-10 Completed [facility] o f Polysaccharide, 00:00:00 [place] [facility] PPSV23 (PNEUMOVAX) [facility] TDAP (ADACEL) VACCINE 2019-08-10 Completed [facility] 00:00:00 [facility] TDAP 2019-08-10 Completed [facility] 00:00:00 [facility] Pneumococcal 2019-08-10 Completed [facility] o f Polysaccharide, 00:00:00 [place] [facility] PPSV23 (PNEUMOVAX) Branch TDAP (ADACEL) VACCINE 2019-08-10 Completed [facility] 00:00:00 [facility] TDAP 2019-08-10 Completed [facility] 00:00:00 [facility] Pneumococcal 2019-08-10 Completed [facility] o f Polysaccharide, 00:00:00 [place] [facility] PPSV23 (PNEUMOVAX) [facility] TDAP (ADACEL) VACCINE 2019-08-10 Completed [facility] 00:00:00 [facility] TDAP 2019-08-10 Completed [facility] 00:00:00 [facility] Pneumococcal 2019-08-10 Completed [facility] o f Polysaccharide, 00:00:00 [facility] PPSV23 (PNEUMOVAX) [facility] TDAP (ADACEL) VACCINE 2019-08-10 Completed [facility] 00:00:00 [facility] TDAP 2019-08-10 Completed [facility] 00:00:00 [facility] Pneumococcal 2019-08-10 Completed [facility] o f Polysaccharide, 00:00:00 [facility] PPSV23 (PNEUMOVAX) [facility] TDAP (ADACEL) VACCINE 2019-08-10 Completed [facility] 00:00:00 [facility] TDAP 2019-08-10 Completed [facility] 00:00:00 [facility] Pneumococcal 2019-08-10 Completed [facility] o f Polysaccharide, 00:00:00 [place] [facility] PPSV23 (PNEUMOVAX) Branch TDAP (ADACEL) VACCINE 2019-08-10 Completed [facility] 00:00:00 [facility] TDAP 2019-08-10 Completed [facility] 00:00:00 [facility] Pneumococcal 2019-08-10 Completed [facility] o f Polysaccharide, 00:00:00 [place] [facility] PPSV23 (PNEUMOVAX) Branch TDAP (ADACEL) VACCINE 2019-08-10 Completed [facility] 00:00:00 [facility] TDAP 2019-08-10 Completed [facility] 00:00:00 [facility] Pneumococcal 2019-08-10 Completed [facility] o f Polysaccharide, 00:00:00 [place] [facility] PPSV23 (PNEUMOVAX) Branch TDAP (ADACEL) VACCINE 2019-08-10 Completed [facility] 00:00:00 [facility] TDAP 2019-08-10 Completed [facility] 00:00:00 [facility] Pneumococcal 2019-08-10 Completed [facility] o f Polysaccharide, 00:00:00 [place] [facility] PPSV23 (PNEUMOVAX) Branch TDAP (ADACEL) VACCINE 2019-08-10 Completed [facility] 00:00:00 [facility] TDAP 2019-08-10 Completed [facility] 00:00:00 [facility] Pneumococcal 2019-08-10 Completed [facility] o f Polysaccharide, 00:00:00 [place] [facility] PPSV23 (PNEUMOVAX) Branch TDAP (ADACEL) VACCINE 2019-08-10 Completed [facility] 00:00:00 [facility] TDAP 2019-08-10 Completed [facility] 00:00:00 [facility] Pneumococcal 2019-08-10 Completed [facility] o f Polysaccharide, 00:00:00 [facility] PPSV23 (PNEUMOVAX) [facility] TDAP (ADACEL) VACCINE 2019-08-10 Completed [facility] 00:00:00 [facility] TDAP 2019-08-10 Completed [facility] 00:00:00 [facility] Pneumococcal 2019-08-10 Completed [facility] o f Polysaccharide, 00:00:00 [place] [facility] PPSV23 (PNEUMOVAX) Branch TDAP (ADACEL) VACCINE 2019-08-10 Completed [facility] 00:00:00 [facility] TDAP 2019-08-10 Completed [facility] 00:00:00 [facility] Pneumococcal 2019-08-10 Completed [facility] o f Polysaccharide, 00:00:00 [place] [facility] PPSV23 (PNEUMOVAX) Branch TDAP (ADACEL) VACCINE 2019-08-10 Completed [facility] 00:00:00 [facility] TDAP 2019-08-10 Completed [facility] 00:00:00 [facility] Pneumococcal 2019-08-10 Completed [facility] o f Polysaccharide, 00:00:00 [place] [facility] PPSV23 (PNEUMOVAX) Branch TDAP (ADACEL) VACCINE 2019-08-10 Completed [facility] 00:00:00 [facility] TDAP 2019-08-10 Completed [facility] 00:00:00 [facility] Pneumococcal 2019-08-10 Completed [facility] o f Polysaccharide, 00:00:00 [place] [facility] PPSV23 (PNEUMOVAX) Branch TDAP (ADACEL) VACCINE 2019-08-10 Completed [facility] 00:00:00 [facility] TDAP 2019-08-10 Completed [facility] 00:00:00 [facility] Pneumococcal 2019-08-10 Completed [facility] o f Polysaccharide, 00:00:00 [place] [facility] PPSV23 (PNEUMOVAX) Branch TDAP (ADACEL) VACCINE 2019-08-10 Completed [facility] 00:00:00 [facility] TDAP 2019-08-10 Completed [facility] 00:00:00 [facility] Pneumococcal 2019-08-10 Completed [facility] o f Polysaccharide, 00:00:00 [place] [facility] PPSV23 (PNEUMOVAX) Branch TDAP (ADACEL) VACCINE 2019-08-10 Completed [facility] 00:00:00 [facility] TDAP 2019-08-10 Completed [facility] 00:00:00 [facility] Pneumococcal 2019-08-10 Completed [facility] o f Polysaccharide, 00:00:00 [place] [facility] PPSV23 (PNEUMOVAX) Branch TDAP (ADACEL) VACCINE 2019-08-10 Completed [facility] 00:00:00 [facility] TDAP 2019-08-10 Completed [facility] 00:00:00 [facility] Pneumococcal 2019-08-10 Completed [facility] o f Polysaccharide, 00:00:00 [facility] PPSV23 (PNEUMOVAX) Branch TDAP (ADACEL) VACCINE 2019-08-10 Completed [facility] 00:00:00 [facility] TDAP 2019-08-10 Completed [facility] 00:00:00 [facility] Pneumococcal 2019-08-10 Completed [facility] o f Polysaccharide, 00:00:00 [place] [facility] PPSV23 (PNEUMOVAX) Branch TDAP (ADACEL) VACCINE 2019-08-10 Completed [facility] 00:00:00 [facility] TDAP 2019-08-10 Completed [facility] 00:00:00 [facility] Pneumococcal 2019-08-10 Completed [facility] o f Polysaccharide, 00:00:00 [facility] PPSV23 (PNEUMOVAX) Branch TDAP (ADACEL) VACCINE 2019-08-10 Completed [facility] 00:00:00 [facility] TDAP 2019-08-10 Completed [facility] 00:00:00 [facility] Pneumococcal 2019-08-10 Completed [facility] o f Polysaccharide, 00:00:00 [place] [facility] PPSV23 (PNEUMOVAX) Branch TDAP (ADACEL) VACCINE 2019-08-10 Completed [facility] 00:00:00 [facility] TDAP 2019-08-10 Completed [facility] 00:00:00 [facility] Pneumococcal 2019-08-10 Completed [facility] o f Polysaccharide, 00:00:00 [facility] PPSV23 (PNEUMOVAX) Branch TDAP (ADACEL) VACCINE 2019-08-10 Completed [facility] 00:00:00 [facility] TDAP 2019-08-10 Completed [facility] 00:00:00 [facility] Pneumococcal 2019-08-10 Completed [facility] o f Polysaccharide, 00:00:00 [place] [facility] PPSV23 (PNEUMOVAX) Branch TDAP (ADACEL) VACCINE 2019-08-10 Completed [facility] 00:00:00 [facility] TDAP 2019-08-10 Completed [facility] 00:00:00 [facility] Pneumococcal 2019-08-10 Completed [facility] o f Polysaccharide, 00:00:00 [facility] PPSV23 (PNEUMOVAX) Branch TDAP (ADACEL) VACCINE 2019-08-10 Completed [facility] 00:00:00 [facility] TDAP 2019-08-10 Completed [facility] 00:00:00 [facility] Pneumococcal 2019-08-10 Completed [facility] o f Polysaccharide, 00:00:00 [facility] PPSV23 (PNEUMOVAX) Branch TDAP (ADACEL) VACCINE 2019-08-10 Completed [facility] 00:00:00 [facility] TDAP 2019-08-10 Completed [facility] 00:00:00 [facility] Pneumococcal 2019-08-10 Completed [facility] o f Polysaccharide, 00:00:00 [facility] PPSV23 (PNEUMOVAX) Branch TDAP (ADACEL) VACCINE 2019-08-10 Completed [facility] 00:00:00 [facility] TDAP 2019-08-10 Completed [facility] 00:00:00 [facility] Pneumococcal 2019-08-10 Completed [facility] o f Polysaccharide, 00:00:00 [facility] PPSV23 (PNEUMOVAX) Branch TDAP (ADACEL) VACCINE 2019-08-10 Completed [facility] 00:00:00 [facility] TDAP 2019-08-10 Completed [facility] 00:00:00 [facility] Pneumococcal 2019-08-10 Completed [facility] o f Polysaccharide, 00:00:00 [place] [facility] PPSV23 (PNEUMOVAX) Branch TDAP (ADACEL) VACCINE 2019-08-10 Completed [facility] 00:00:00 [facility] TDAP 2019-08-10 Completed [facility] 00:00:00 [facility] Pneumococcal 2019-08-10 Completed [facility] o f Polysaccharide, 00:00:00 [place] [facility] PPSV23 (PNEUMOVAX) Branch TDAP (ADACEL) VACCINE 2019-08-10 Completed [facility] 00:00:00 [facility] TDAP 2019-08-10 Completed [facility] 00:00:00 [facility] Pneumococcal 2019-08-10 Completed [facility] o f Polysaccharide, 00:00:00 [facility] PPSV23 (PNEUMOVAX) Branch TDAP (ADACEL) VACCINE 2019-08-10 Completed [facility] 00:00:00 [facility] TDAP 2019-08-10 Completed [facility] 00:00:00 [facility] Pneumococcal 2019-08-10 Completed [facility] o f Polysaccharide, 00:00:00 [facility] PPSV23 (PNEUMOVAX) [facility] TDAP (ADACEL) VACCINE 2019-08-10 Completed [facility] 00:00:00 [facility] TDAP 2019-08-10 Completed [facility] 00:00:00 [facility] Pneumococcal 2019-08-10 Completed [facility] o f Polysaccharide, 00:00:00 [facility] PPSV23 (PNEUMOVAX) Branch TDAP (ADACEL) VACCINE 2019-08-10 Completed [facility] 00:00:00 [facility] TDAP 2019-08-10 Completed [facility] 00:00:00 [facility] Pneumococcal 2019-08-10 Completed [facility] o f Polysaccharide, 00:00:00 [facility] PPSV23 (PNEUMOVAX) [facility] TDAP (ADACEL) VACCINE 2019-08-10 Completed [facility] 00:00:00 [facility] TDAP 2019-08-10 Completed [facility] 00:00:00 [facility] Pneumococcal 2019-08-10 Completed [facility] o f Polysaccharide, 00:00:00 [facility] PPSV23 (PNEUMOVAX) [facility] TDAP (ADACEL) VACCINE 2019-08-10 Completed [facility] 00:00:00 [facility] TDAP 2019-08-10 Completed [facility] 00:00:00 [facility] Pneumococcal 2019-08-10 Completed [facility] o f Polysaccharide, 00:00:00 [facility] PPSV23 (PNEUMOVAX) Branch TDAP (ADACEL) VACCINE 2019-08-10 Completed [facility] 00:00:00 [facility] TDAP 2019-08-10 Completed [facility] 00:00:00 [facility] Pneumococcal 2019-08-10 Completed [facility] o f Polysaccharide, 00:00:00 [facility] ical PPSV23 (PNEUMOVAX) Branch TDAP (ADACEL) VACCINE 2019-08-10 Completed [facility] 00:00:00 [facility] TDAP 2019-08-10 Completed [facility] of 00:00:00 [facility] Pneumococcal 2019-08-10 Completed [facility] o f Polysaccharide, 00:00:00 [facility] ical PPSV23 (PNEUMOVAX) Branch TDAP (ADACEL) VACCINE 2019-08-10 Completed [facility] 00:00:00 [facility] TDAP 2019-08-10 Completed [facility] 00:00:00 [facility] Influenza Virus 2019-07-04 Completed Universit y of Vaccine 00:00:00 [facility] Influenza Virus 2019-07-04 Completed [facility] y of Vaccine Recomb Quad 00:00:00 [facility], Preserv and ABX Branc h Free 18-64 YRS Influenza Virus 2019-07-04 Completed [facility]it y of Vaccine 00:00:00 [facility] Influenza Virus 2019-07-04 Completed [facility] y of Vaccine Recomb Quad 00:00:00 [facility], Preserv and ABX Branc h Free 18-64 YRS Influenza Virus 2019-07-04 Completed [facility]it y of Vaccine 00:00:00 [facility] Influenza Virus 2019-07-04 Completed [facility] of Vaccine Recomb Quad 00:00:00 [facility], Preserv and ABX Branc h Free 18-64 YRS Influenza Virus 2019-07-04 Completed [facility]it y of Vaccine 00:00:00 [facility] Influenza Virus 2019-07-04 Completed [facility] of Vaccine Recomb Quad 00:00:00 [facility], Preserv and ABX Branc h Free 18-64 YRS Influenza Virus 2019-07-04 Completed [facility]it y of Vaccine 00:00:00 [facility] Influenza Virus 2019-07-04 Completed [facility] of Vaccine Recomb Quad 00:00:00 [facility], Preserv and ABX Branc h Free 18-64 YRS Influenza Virus 2019-07-04 Completed [facility] y of Vaccine 00:00:00 [facility] Influenza Virus 2019-07-04 Completed [facility] y of Vaccine Recomb Quad 00:00:00 [facility], Preserv and ABX Branc h Free 18-64 YRS Influenza Virus 2019-07-04 Completed [facility] y of Vaccine 00:00:00 [facility] Influenza Virus 2019-07-04 Completed [facility] of Vaccine Recomb Quad 00:00:00 [facility], Preserv and ABX Branc h Free 18-64 YRS Influenza Virus 2019-07-04 Completed [facility] of Vaccine 00:00:00 [facility] Influenza Virus 2019-07-04 Completed [facility] of Vaccine Recomb Quad 00:00:00 [facility], Preserv and ABX Branc h Free 18-64 YRS Influenza Virus 2019-07-04 Completed [facility] of Vaccine 00:00:00 [facility] Influenza Virus 2019-07-04 Completed [facility] of Vaccine Recomb Quad 00:00:00 [facility], Preserv and ABX Branc h Free 18-64 YRS Influenza Virus 2019-07-04 Completed [facility] of Vaccine 00:00:00 [facility] Influenza Virus 2019-07-04 Completed [facility] of Vaccine Recomb Quad 00:00:00 [facility], Preserv and ABX Branc h Free 18-64 YRS Influenza Virus 2019-07-04 Completed [facility] of Vaccine 00:00:00 [facility] Influenza Virus 2019-07-04 Completed [facility] of Vaccine Recomb Quad 00:00:00 [facility], Preserv and ABX Branc h Free 18-64 YRS Influenza Virus 2019-07-04 Completed [facility] of Vaccine 00:00:00 [facility] Influenza Virus 2019-07-04 Completed [facility] of Vaccine Recomb Quad 00:00:00 [facility], Preserv and ABX Branc h Free 18-64 YRS Influenza Virus 2019-07-04 Completed [facility] of Vaccine 00:00:00 [facility] Influenza Virus 2019-07-04 Completed [facility] of Vaccine Recomb Quad 00:00:00 [facility], Preserv and ABX Branc h Free 18-64 YRS Influenza Virus 2019-07-04 Completed [facility] of Vaccine 00:00:00 [facility] Influenza Virus 2019-07-04 Completed [facility] of Vaccine Recomb Quad 00:00:00 [facility], Preserv and ABX Branc h Free 18-64 YRS Influenza Virus 2019-07-04 Completed [facility]it y of Vaccine 00:00:00 [facility] Influenza Virus 2019-07-04 Completed [facility] 00:00:00 [facility], Preserv and ABX Branc h Free 18-64 YRS Influenza Virus 2019-07-04 Completed [facility] Vaccine 00:00:00 [facility] Influenza Virus 2019-07-04 Completed [facility] 00:00:00 [facility], Preserv and ABX Branc h Free 18-64 YRS Influenza Virus 2019-07-04 Completed [facility] Vaccine 00:00:00 [facility] Influenza Virus 2019-07-04 Completed [facility]ine [facility] Quad 00:00:00 [facility], Preserv and ABX Branc h Free 18-64 YRS Influenza Virus 2019-07-04 Completed [facility] Vaccine 00:00:00 [facility] Influenza Virus 2019-07-04 Completed [facility] Vaccine Re[facility] Quad 00:00:00 [facility], Preserv and ABX Branc h Free 18-64 YRS Influenza Virus 2019-07-04 Completed [facility] Vaccine 00:00:00 [facility] Influenza Virus 2019-07-04 Completed [facility] Vaccine Recomb Quad 00:00:00 [facility], Preserv and ABX Branc h Free 18-64 YRS Influenza Virus 2019-07-04 Completed [facility] Vaccine 00:00:00 [facility] Influenza Virus 2019-07-04 Completed [facility] Vaccine Recomb Quad 00:00:00 [facility], Preserv and ABX Branc h Free 18-64 YRS Influenza Virus 2019-07-04 Completed [facility] Vaccine 00:00:00 [facility] Influenza Virus 2019-07-04 Completed [facility] Vaccine Recomb Quad 00:00:00 [facility], Preserv and ABX Branc h Free 18-64 YRS Influenza Virus 2019-07-04 Completed [facility] Vaccine 00:00:00 [facility] Influenza Virus 2019-07-04 Completed [facility] Vaccine Recomb Quad 00:00:00 [facility], Preserv and ABX Branc h Free 18-64 YRS Influenza Virus 2019-07-04 Completed [facility] Vaccine 00:00:00 [facility] Influenza Virus 2019-07-04 Completed [facility] Vaccine Re[facility] Quad 00:00:00 [facility], Preserv and ABX Branc h Free 18-64 YRS Influenza Virus 2019-07-04 Completed [facility] Vaccine 00:00:00 [facility] Influenza Virus 2019-07-04 Completed [facility] Vaccine [facility] Quad 00:00:00 [facility], Preserv and ABX Branc h Free 18-64 YRS Influenza Virus 2019-07-04 Completed [facility] Vaccine 00:00:00 [facility] Influenza Virus 2019-07-04 Completed [facility] Vaccine [facility] Quad 00:00:00 [facility], Preserv and ABX Branc h Free 18-64 YRS Influenza Virus 2019-07-04 Completed [facility] Vaccine 00:00:00 [facility] Influenza Virus 2019-07-04 Completed [facility] Vaccine [facility] Quad 00:00:00 [facility], Preserv and ABX Branc h Free 18-64 YRS Influenza Virus 2019-07-04 Completed [facility] Vaccine 00:00:00 [facility] Influenza Virus 2019-07-04 Completed [facility] Vaccine Re[facility] Quad 00:00:00 [facility], Preserv and ABX Branc h Free 18-64 YRS Influenza Virus 2019-07-04 Completed [facility] Vaccine 00:00:00 [facility] Influenza Virus 2019-07-04 Completed [facility] Vaccine [facility] Quad 00:00:00 [facility], Preserv and ABX Branc h Free 18-64 YRS Influenza Virus 2019-07-04 Completed [facility] Vaccine 00:00:00 [facility] Influenza Virus 2019-07-04 Completed [facility] Vaccine [facility] Quad 00:00:00 [facility], Preserv and ABX Branc h Free 18-64 YRS Influenza Virus 2019-07-04 Completed [facility] Vaccine 00:00:00 [facility] Influenza Virus 2019-07-04 Completed [facility] Vaccine [facility] 00:00:00 [facility], Preserv and ABX Branc h Free 18-64 YRS Influenza Virus 2019-07-04 Completed [facility] Vaccine 00:00:00 [facility] Influenza Virus 2019-07-04 Completed [facility] Vaccine [facility] 00:00:00 [facility], Preserv and ABX Branc h Free 18-64 YRS Influenza Virus 2019-07-04 Completed [facility] Vaccine 00:00:00 [facility] Influenza Virus 2019-07-04 Completed [facility] Vaccine [facility] 00:00:00 [facility], Preserv and ABX Branc h Free 18-64 YRS Influenza Virus 2019-07-04 Completed [facility] Vaccine 00:00:00 [facility] Influenza Virus 2019-07-04 Completed [facility] Vaccine [facility] 00:00:00 [facility], Preserv and ABX Branc h Free 18-64 YRS Influenza Virus 2019-07-04 Completed [facility] Vaccine 00:00:00 [facility] Influenza Virus 2019-07-04 Completed [facility] Vaccine [facility] 00:00:00 [facility], Preserv and ABX Branc h Free 18-64 YRS Influenza Virus 2019-07-04 Completed [facility] Vaccine 00:00:00 [facility] Influenza Virus 2019-07-04 Completed [facility] Vaccine [facility] 00:00:00 [facility], Preserv and ABX Branc h Free 18-64 YRS Influenza Virus 2019-07-04 Completed [facility] Vaccine 00:00:00 [facility] Influenza Virus 2019-07-04 Completed [facility]ine [facility] 00:00:00 [facility], Preserv and ABX Branc h Free 18-64 YRS Influenza Virus 2019-07-04 Completed [facility] Vaccine 00:00:00 [facility] Influenza Virus 2019-07-04 Completed [facility] Vaccine [facility] 00:00:00 [facility], Preserv and ABX Branc h Free 18-64 YRS Influenza Virus 2019-07-04 Completed [facility] Vaccine 00:00:00 [facility] Influenza Virus 2019-07-04 Completed [facility]ine [facility] 00:00:00 [facility], Preserv and ABX Branc h Free 18-64 YRS Influenza Virus 2019-07-04 Completed [facility] Vaccine 00:00:00 [facility] Influenza Virus 2019-07-04 Completed [facility] Vaccine [facility] 00:00:00 [facility], Preserv and ABX Branc h Free 18-64 YRS Influenza Virus 2019-07-04 Completed [facility] Vaccine 00:00:00 [facility] Influenza Virus 2019-07-04 Completed [facility] Vaccine [facility] 00:00:00 [facility], Preserv and ABX Branc h Free 18-64 YRS Influenza Virus 2019-07-04 Completed [facility] Vaccine 00:00:00 [facility] Influenza Virus 2019-07-04 Completed [facility]ine [facility] 00:00:00 [facility], Preserv and ABX Branc h Free 18-64 YRS Influenza Virus 2019-07-04 Completed [facility] Vaccine 00:00:00 [facility] Influenza Virus 2019-07-04 Completed [facility] Vaccine [facility] 00:00:00 [facility], Preserv and ABX Branc h Free 18-64 YRS Influenza Virus 2019-07-04 Completed [facility] Vaccine 00:00:00 [facility] Influenza Virus 2019-07-04 Completed [facility]ine [facility] 00:00:00 [facility], Preserv and ABX Branc h Free 18-64 YRS Influenza Virus 2019-07-04 Completed [facility] Vaccine 00:00:00 [facility] Influenza Virus 2019-07-04 Completed [facility]ine [facility] 00:00:00 [facility], Preserv and ABX Branc h Free 18-64 YRS Influenza Virus 2019-07-04 Completed [facility] Vaccine 00:00:00 [facility] Influenza Virus 2019-07-04 Completed [facility]ine [facility] 00:00:00 [facility], Preserv and ABX Branc h Free 18-64 YRS Influenza Virus 2019-07-04 Completed [facility] Vaccine 00:00:00 [facility] Influenza Virus 2019-07-04 Completed [facility]ine [facility] 00:00:00 [facility], Preserv and ABX Branc h Free 18-64 YRS Influenza Virus 2019-07-04 Completed [facility] Vaccine 00:00:00 [facility] Influenza Virus 2019-07-04 Completed [facility] Vaccine [facility] 00:00:00 [facility], Preserv and ABX Branc h Free 18-64 YRS Influenza Virus 2019-07-04 Completed [facility] Vaccine 00:00:00 [facility] Influenza Virus 2019-07-04 Completed [facility]ine [facility] 00:00:00 [facility], Preserv and ABX Branc h Free 18-64 YRS Influenza Virus 2019-07-04 Completed [facility] Vaccine 00:00:00 [facility] Influenza Virus 2019-07-04 Completed [facility]ine [facility] 00:00:00 [facility], Preserv and ABX Branc h Free 18-64 YRS Influenza Virus 2019-07-04 Completed [facility] Vaccine 00:00:00 [facility] Influenza Virus 2019-07-04 Completed [facility]ine [facility] 00:00:00 [facility], Preserv and ABX Branc h Free 18-64 YRS Influenza Virus 2019-07-04 Completed [facility] Vaccine 00:00:00 [facility] Influenza Virus 2019-07-04 Completed [facility]ine [facility] 00:00:00 [facility], Preserv and ABX Branc h Free 18-64 YRS Influenza Virus 2019-07-04 Completed [facility] Vaccine 00:00:00 [facility] Influenza Virus 2019-07-04 Completed [facility]ine [facility] 00:00:00 [facility], Preserv and ABX Branc h Free 18-64 YRS Influenza Virus 2019-07-04 Completed [facility] Vaccine 00:00:00 [facility] Influenza Virus 2019-07-04 Completed [facility]ine [facility] 00:00:00 [facility], Preserv and ABX Branc h Free 18-64 YRS Influenza Virus 2019-07-04 Completed [facility] Vaccine 00:00:00 [facility] Influenza Virus 2019-07-04 Completed [facility] Vaccine [facility] Quad 00:00:00 [facility], Preserv and ABX Branc h Free 18-64 YRS Influenza Virus 2019-07-04 Completed [facility] Vaccine 00:00:00 [facility] Influenza Virus 2019-07-04 Completed [facility] Vaccine [facility] 00:00:00 [facility], Preserv and ABX Branc h Free 18-64 YRS Influenza Virus 2019-07-04 Completed [facility] Vaccine 00:00:00 [facility] Influenza Virus 2019-07-04 Completed [facility] Vaccine Re[facility] Quad 00:00:00 [facility], Preserv and ABX Branc h Free 18-64 YRS Influenza Virus 2019-07-04 Completed [facility] Vaccine 00:00:00 [facility] Influenza Virus 2019-07-04 Completed [facility]ine [facility] 00:00:00 [facility], Preserv and ABX Branc h Free 18-64 YRS Influenza Virus 2019-07-04 Completed [facility] Vaccine 00:00:00 [facility] Influenza Virus 2019-07-04 Completed [facility] Vaccine [facility] 00:00:00 [facility], Preserv and ABX Branc h Free 18-64 YRS Influenza Virus 2019-07-04 Completed [facility] Vaccine 00:00:00 [facility] Influenza Virus 2019-07-04 Completed [facility] Vaccine [facility] Quad 00:00:00 [facility], Preserv and ABX Branc h Free 18-64 YRS Influenza Virus 2019-07-04 Completed [facility] Vaccine 00:00:00 [facility] Influenza Virus 2019-07-04 Completed [facility] Vaccine [facility] Quad 00:00:00 [facility], Preserv and ABX Branc h Free 18-64 YRS Influenza Virus 2019-07-04 Completed [facility] Vaccine 00:00:00 [facility] Influenza Virus 2019-07-04 Completed [facility] Vaccine [facility] Quad 00:00:00 [facility], Preserv and ABX Branc h Free 18-64 YRS Influenza Virus 2019-07-04 Completed [facility] Vaccine 00:00:00 [facility] Influenza Virus 2019-07-04 Completed [facility] Vaccine [facility] Quad 00:00:00 [facility], Preserv and ABX Branc h Free 18-64 YRS Influenza Virus 2019-07-04 Completed [facility] Vaccine 00:00:00 [facility] Influenza Virus 2019-07-04 Completed [facility] Vaccine Recomb Quad 00:00:00 [facility], Preserv and ABX Branc h Free 18-64 YRS Influenza Virus 2019-07-04 Completed [facility] Vaccine 00:00:00 [facility] Influenza Virus 2019-07-04 Completed [facility] Vaccine [facility] Quad 00:00:00 [facility], Preserv and ABX Branc h Free 18-64 YRS Influenza Virus 2019-07-04 Completed [facility] Vaccine 00:00:00 [facility] Influenza Virus 2019-07-04 Completed [facility] Vaccine Recomb Quad 00:00:00 [facility], Preserv and ABX Branc h Free 18-64 YRS Influenza Virus 2019-07-04 Completed [facility] Vaccine 00:00:00 [facility] Influenza Virus 2019-07-04 Completed [facility] Vaccine Re[facility] Quad 00:00:00 [facility], Preserv and ABX Branc h Free 18-64 YRS Influenza Virus 2019-07-04 Completed [facility] Vaccine 00:00:00 [facility] Influenza Virus 2019-07-04 Completed [facility]ine Re[facility] Quad 00:00:00 [facility], Preserv and ABX Branc h Free 18-64 YRS Influenza Virus 2019-07-04 Completed [facility] Vaccine 00:00:00 [facility] Influenza Virus 2019-07-04 Completed [facility] Vaccine Re[facility] Quad 00:00:00 [facility], Preserv and ABX Branc h Free 18-64 YRS Influenza Virus 2019-07-04 Completed [facility] Vaccine 00:00:00 [facility] Influenza Virus 2019-07-04 Completed [facility] Vaccine Re[facility] Quad 00:00:00 [facility], Preserv and ABX Branc h Free 18-64 YRS Influenza Virus 2019-07-04 Completed [facility] Vaccine 00:00:00 [facility] Influenza Virus 2019-07-04 Completed [facility] Vaccine Re[facility] Quad 00:00:00 [facility], Preserv and ABX Branc h Free 18-64 YRS Influenza Virus 2019-07-04 Completed [facility] Vaccine 00:00:00 [facility] Influenza Virus 2019-07-04 Completed [facility] Vaccine Recomb Quad 00:00:00 [facility], Preserv and ABX Branc h Free 18-64 YRS Influenza Virus 2019-07-04 Completed [facility] Vaccine 00:00:00 [facility] Influenza Virus 2019-07-04 Completed [facility] Vaccine Recomb Quad 00:00:00 [facility], Preserv and ABX Branc h Free 18-64 YRS Influenza Virus 2019-07-04 Completed [facility] Vaccine 00:00:00 [facility] Influenza Virus 2019-07-04 Completed [facility] Vaccine Re[facility] Quad 00:00:00 [facility], Preserv and ABX Branc h Free 18-64 YRS Influenza Virus 2019-07-04 Completed [facility] Vaccine 00:00:00 [facility] Influenza Virus 2019-07-04 Completed [facility] Vaccine Recomb Quad 00:00:00 [facility], Preserv and ABX Branc h Free 18-64 YRS Influenza Virus 2019-07-04 Completed [facility] Vaccine 00:00:00 [facility] Influenza Virus 2019-07-04 Completed [facility] Vaccine Recomb Quad 00:00:00 [facility], Preserv and ABX Branc h Free 18-64 YRS Influenza Virus 2019-07-04 Completed [facility] Vaccine 00:00:00 [facility] Influenza Virus 2019-07-04 Completed [facility] Vaccine Recomb Quad 00:00:00 [facility], Preserv and ABX Branc h Free 18-64 YRS Influenza Virus 2019-07-04 Completed [facility] Vaccine 00:00:00 [facility] Influenza Virus 2019-07-04 Completed [facility] Vaccine Recomb Quad 00:00:00 [facility], Preserv and ABX Branc h Free 18-64 YRS Influenza Virus 2019-07-04 Completed [facility] Vaccine 00:00:00 [facility] Influenza Virus 2019-07-04 Completed [facility] Vaccine Recomb Quad 00:00:00 [facility], Preserv and ABX Branc h Free 18-64 YRS Influenza Virus 2019-07-04 Completed [facility] Vaccine 00:00:00 [facility] Influenza Virus 2019-07-04 Completed [facility] Vaccine Recomb Quad 00:00:00 [facility], Preserv and ABX Branc h Free 18-64 YRS Influenza Virus 2019-07-04 Completed [facility] Vaccine 00:00:00 [facility] Influenza Virus 2019-07-04 Completed [facility] Vaccine Recomb Quad 00:00:00 [facility], Preserv and ABX Branc h Free 18-64 YRS Influenza Virus 2019-07-04 Completed [facility] Vaccine 00:00:00 [facility] Influenza Virus 2019-07-04 Completed [facility] Vaccine Recomb Quad 00:00:00 [facility], Preserv and ABX Branc h Free 18-64 YRS Influenza Virus 2019-07-04 Completed [facility] Vaccine 00:00:00 [facility] Influenza Virus 2019-07-04 Completed [facility] Vaccine Recomb Quad 00:00:00 [facility], Preserv and ABX Branc h Free 18-64 YRS Influenza Virus 2018-06-30 Completed [facility] Vaccine Quad IM 3+ 00:00:00 [facility] Influenza Virus 2018-06-30 Completed [facility] Vaccine Quad IM 3+ 00:00:00 [facility] Influenza Virus 2018-06-30 Completed [facility] Vaccine Quad IM 3+ 00:00:00 [facility] Influenza Virus 2018-06-30 Completed [facility] Vaccine Quad IM 3+ 00:00:00 [facility] Influenza Virus 2018-06-30 Completed [facility] Vaccine Quad IM 3+ 00:00:00 [facility] Influenza Virus 2018-06-30 Completed [facility] Vaccine Quad IM 3+ 00:00:00 [facility] Influenza Virus 2018-06-30 Completed [facility] Vaccine Quad IM 3+ 00:00:00 [facility] Influenza Virus 2018-06-30 Completed [facility] Vaccine Quad IM 3+ 00:00:00 [facility] Influenza Virus 2018-06-30 Completed [facility] Vaccine Quad IM 3+ 00:00:00 [facility] Influenza Virus 2018-06-30 Completed [facility] Vaccine Quad IM 3+ 00:00:00 [facility] Influenza Virus 2018-06-30 Completed [facility] Vaccine Quad IM 3+ 00:00:00 [facility] Influenza Virus 2018-06-30 Completed [facility] Vaccine Quad IM 3+ 00:00:00 [facility] Influenza Virus 2018-06-30 Completed [facility] Vaccine Quad IM 3+ 00:00:00 [facility] Influenza Virus 2018-06-30 Completed [facility] Vaccine Quad IM 3+ 00:00:00 [facility] Influenza Virus 2018-06-30 Completed [facility] Vaccine Quad IM 3+ 00:00:00 [facility] Influenza Virus 2018-06-30 Completed [facility] Vaccine Quad IM 3+ 00:00:00 [facility] Influenza Virus 2018-06-30 Completed [facility] Vaccine Quad IM 3+ 00:00:00 [facility] Influenza Virus 2018-06-30 Completed [facility] Vaccine Quad IM 3+ 00:00:00 [facility] Influenza Virus 2018-06-30 Completed [facility] Vaccine Quad IM 3+ 00:00:00 [facility] Influenza Virus 2018-06-30 Completed [facility] Vaccine Quad IM 3+ 00:00:00 [facility] Influenza Virus 2018-06-30 Completed [facility] Vaccine Quad IM 3+ 00:00:00 [facility] Influenza Virus 2018-06-30 Completed [facility] Vaccine Quad IM 3+ 00:00:00 [facility] Influenza Virus 2018-06-30 Completed [facility] Vaccine Quad IM 3+ 00:00:00 [facility] Influenza Virus 2018-06-30 Completed [facility] Vaccine Quad IM 3+ 00:00:00 [facility] Influenza Virus 2018-06-30 Completed [facility] Vaccine Quad IM 3+ 00:00:00 [facility] Influenza Virus 2018-06-30 Completed [facility] Vaccine Quad IM 3+ 00:00:00 [facility] Influenza Virus 2018-06-30 Completed [facility] Vaccine Quad IM 3+ 00:00:00 [facility] Influenza Virus 2018-06-30 Completed [facility] Vaccine Quad IM 3+ 00:00:00 [facility] Influenza Virus 2018-06-30 Completed [facility] Vaccine Quad IM 3+ 00:00:00 [facility] Influenza Virus 2018-06-30 Completed [facility] Vaccine Quad IM 3+ 00:00:00 [facility] Influenza Virus 2018-06-30 Completed [facility] Vaccine Quad IM 3+ 00:00:00 [facility] Influenza Virus 2018-06-30 Completed [facility] Vaccine Quad IM 3+ 00:00:00 [facility] Influenza Virus 2018-06-30 Completed [facility] Vaccine Quad IM 3+ 00:00:00 [facility] Influenza Virus 2018-06-30 Completed [facility] Vaccine Quad IM 3+ 00:00:00 [facility] Influenza Virus 2018-06-30 Completed [facility] Vaccine Quad IM 3+ 00:00:00 [facility] Influenza Virus 2018-06-30 Completed [facility] Vaccine Quad IM 3+ 00:00:00 [facility] Influenza Virus 2018-06-30 Completed [facility] Vaccine Quad IM 3+ 00:00:00 [facility] Influenza Virus 2018-06-30 Completed [facility] Vaccine Quad IM 3+ 00:00:00 [facility] Influenza Virus 2018-06-30 Completed [facility] Vaccine Quad IM 3+ 00:00:00 [facility] Influenza Virus 2018-06-30 Completed [facility] Vaccine Quad IM 3+ 00:00:00 [facility] Influenza Virus 2018-06-30 Completed [facility] Vaccine Quad IM 3+ 00:00:00 [facility] Influenza Virus 2018-06-30 Completed [facility] Vaccine Quad IM 3+ 00:00:00 [facility] Influenza Virus 2018-06-30 Completed [facility] Vaccine Quad IM 3+ 00:00:00 [facility] Influenza Virus 2018-06-30 Completed [facility] Vaccine Quad IM 3+ 00:00:00 [facility] Influenza Virus 2018-06-30 Completed [facility] Vaccine Quad IM 3+ 00:00:00 [facility] Influenza Virus 2018-06-30 Completed [facility] Vaccine Quad IM 3+ 00:00:00 [facility] Influenza Virus 2018-06-30 Completed [facility] Vaccine Quad IM 3+ 00:00:00 [facility] Influenza Virus 2018-06-30 Completed [facility] Vaccine Quad IM 3+ 00:00:00 [facility] Influenza Virus 2018-06-30 Completed [facility] Vaccine Quad IM 3+ 00:00:00 [facility] Influenza Virus 2018-06-30 Completed [facility] Vaccine Quad IM 3+ 00:00:00 [facility] Influenza Virus 2018-06-30 Completed [facility] Vaccine Quad IM 3+ 00:00:00 [facility] Influenza Virus 2018-06-30 Completed [facility] Vaccine Quad IM 3+ 00:00:00 [facility] Influenza Virus 2018-06-30 Completed [facility] Vaccine Quad IM 3+ 00:00:00 [facility] Influenza Virus 2018-06-30 Completed [facility] Vaccine Quad IM 3+ 00:00:00 [facility] Influenza Virus 2018-06-30 Completed [facility] Vaccine Quad IM 3+ 00:00:00 [facility] Influenza Virus 2018-06-30 Completed [facility] Vaccine Quad IM 3+ 00:00:00 [facility] Influenza Virus 2018-06-30 Completed [facility] Vaccine Quad IM 3+ 00:00:00 [facility] Influenza Virus 2018-06-30 Completed [facility] Vaccine Quad IM 3+ 00:00:00 [facility] Influenza Virus 2018-06-30 Completed [facility] Vaccine Quad IM 3+ 00:00:00 [facility] Influenza Virus 2018-06-30 Completed [facility] Vaccine Quad IM 3+ 00:00:00 [facility] Influenza Virus 2018-06-30 Completed [facility] Vaccine Quad IM 3+ 00:00:00 [facility] Influenza Virus 2018-06-30 Completed [facility] Vaccine Quad IM 3+ 00:00:00 [facility] Influenza Virus 2018-06-30 Completed [facility] Vaccine Quad IM 3+ 00:00:00 [facility] Influenza Virus 2018-06-30 Completed [facility] Vaccine Quad IM 3+ 00:00:00 [facility] Influenza Virus 2018-06-30 Completed [facility] Vaccine Quad IM 3+ 00:00:00 [facility] Influenza Virus 2018-06-30 Completed [facility] of Vaccine Quad IM 3+ 00:00:00 [facility] Influenza Virus 2018-06-30 Completed [facility] of Vaccine Quad IM 3+ 00:00:00 [facility] Influenza Virus 2018-06-30 Completed [facility]it y of Vaccine Quad IM 3+ 00:00:00 [facility] Influenza Virus 2018-06-30 Completed [facility]it y of Vaccine Quad IM 3+ 00:00:00 [facility] Influenza Virus 2018-06-30 Completed [facility]it y of Vaccine Quad IM 3+ 00:00:00 [facility] Influenza Virus 2018-06-30 Completed [facility]it y of Vaccine Quad IM 3+ 00:00:00 [facility] Influenza Virus 2018-06-30 Completed [facility]it y of Vaccine Quad IM 3+ 00:00:00 [facility] Influenza Virus 2018-06-30 Completed [facility]it y of Vaccine Quad IM 3+ 00:00:00 [facility] Influenza Virus 2018-06-30 Completed [facility] y of Vaccine Quad IM 3+ 00:00:00 [facility] Influenza Virus 2018-06-30 Completed [facility]it y of Vaccine Quad IM 3+ 00:00:00 [facility] Influenza Virus 2018-06-30 Completed [facility]it y of Vaccine Quad IM 3+ 00:00:00 [facility] Influenza Virus 2018-06-30 Completed [facility]it y of Vaccine Quad IM 3+ 00:00:00 [facility] Influenza Virus 2018-06-30 Completed [facility] y of Vaccine Quad IM 3+ 00:00:00 [facility] Branch Influenza Virus 2018-06-30 Completed [facility]it y of Vaccine Quad IM 3+ 00:00:00 [facility] Branch Influenza Virus 2018-06-30 Completed [facility]it y of Vaccine Quad IM 3+ 00:00:00 [facility] Branch Influenza Virus 2018-06-30 Completed [facility]it y of Vaccine Quad IM 3+ 00:00:00 [facility] Branch Influenza Virus 2018-06-30 Completed [facility]it y of Vaccine Quad IM 3+ 00:00:00 [facility] Branch Influenza Virus 2017-06-15 Completed [facility]it y of Vaccine Quad ID 18-64 00:00:00 [facility] Influenza Virus 2017-06-15 Completed [facility]it y of Vaccine Quad ID 18-64 00:00:00 [facility] Influenza Virus 2017-06-15 Completed [facility] y of Vaccine Quad ID 18-64 00:00:00 [facility] Branch Influenza Virus 2017-06-15 Completed [facility]it y of Vaccine Quad ID 18-64 00:00:00 [facility] Branch Influenza Virus 2017-06-15 Completed [facility]it y of Vaccine Quad ID 18-64 00:00:00 [facility] Influenza Virus 2017-06-15 Completed [facility]it y of Vaccine Quad ID 18-64 00:00:00 [facility] Influenza Virus 2017-06-15 Completed [facility]it [facility] of Vaccine Quad ID 18-64 00:00:00 [facility] Branch Influenza Virus 2017-06-15 Completed Universit y [...] y of Vaccine Quad ID 18-64 00:00:00 [facility] Influenza Virus 2017-06-15 [...] y of Vaccine Quad ID 18-64 00:00:00 [facility] Influenza Virus 2017-06-15 [...] Completed Universit y of Conjugate, PCV13 00:00:00 [facility] dical (Prevnar 13) Branch Meningococcal B, OMV 2016-03-07 Completed Univ ersity of 00:00:00 [facility] Pneumococcal 13 2016-03-07 Completed [facility] of Conjugate, PCV13 00:00:00 [place] [facility] (Prevnar 13) Branch Meningococcal B, V 2016-03-07 Completed Univ ersity of 00:00:00 [facility] Pneumococcal 13 2016-03-07 Completed [facility]it y of Conjugate, PCV13 00:00:00 [place] [facility] (Prevnar 13) Branch Meningococcal B, V 2016-03-07 Completed Univ ersity of 00:00:00 [facility] Pneumococcal 13 2016-03-07 Completed [facility] of Conjugate, PCV13 00:00:00 [place] [facility] (Prevnar 13) Branch Meningococcal B, V 2016-03-07 Completed [facility] ersity of 00:00:00 [facility] Pneumococcal 13 2016-03-07 Completed [facility] of Conjugate, PCV13 00:00:00 [place] [facility] (Prevnar 13) Branch Meningococcal B, [facility] 2016-03-07 Completed Univ ersity of 00:00:00 [facility] Pneumococcal 13 2016-03-07 Completed [facility]it [facility] of Conjugate, PCV13 00:00:00 [place] [facility] (Prevnar 13) Branch Meningococcal B, [facility] 2016-03-07 Completed Univ ersity of 00:00:00 [facility] Pneumococcal 13 2016-03-07 Completed [facility]it [facility] of Conjugate, PCV13 00:00:00 [place] [facility] (Prevnar 13) Branch Meningococcal B, [facility] 2016-03-07 Completed Univ ersity of 00:00:00 [facility] Pneumococcal 13 2016-03-07 Completed [facility] of Conjugate, PCV13 00:00:00 [place] [facility] (Prevnar 13) Branch Meningococcal B, [facility] 2016-03-07 Completed Univ ersity of 00:00:00 [facility] Pneumococcal 13 2016-03-07 Completed [facility] of Conjugate, PCV13 00:00:00 [place] [facility] (Prevnar 13) Branch Meningococcal B, [facility] 2016-03-07 Completed Univ ersity of 00:00:00 [facility] Pneumococcal 13 2016-03-07 Completed [facility]it [facility] of Conjugate, PCV13 00:00:00 [place] [facility] (Prevnar 13) Branch Meningococcal B, [facility] 2016-03-07 Completed Univ ersity of 00:00:00 [facility] Pneumococcal 13 2016-03-07 Completed [facility] of Conjugate, PCV13 00:00:00 [place] [facility] (Prevnar 13) Branch Meningococcal B, V 2016-03-07 Completed Univ ersity of 00:00:00 [facility] Pneumococcal 13 2016-03-07 Completed [facility] of Conjugate, PCV13 00:00:00 [place] [facility] (Prevnar 13) Branch Meningococcal B, V 2016-03-07 Completed Univ ersity of 00:00:00 [facility] Pneumococcal 13 2016-03-07 Completed [facility]it y of Conjugate, PCV13 00:00:00 [facility] dical (Prevnar 13) Branch Meningococcal B, [facility] 2016-03-07 Completed Univ ersity of 00:00:00 [facility] Pneumococcal 13 2016-03-07 Completed [facility]it y of Conjugate, PCV13 00:00:00 [place] [facility] (Prevnar 13) Branch Meningococcal B, [facility] 2016-03-07 Completed Univ ersity of 00:00:00 [facility] Pneumococcal 13 2016-03-07 Completed [facility]it y of Conjugate, PCV13 00:00:00 [facility] dical (Prevnar 13) Branch Meningococcal B, [facility] 2016-03-07 Completed Univ ersity of 00:00:00 [facility] Pneumococcal 13 2016-03-07 Completed [facility]it y of Conjugate, PCV13 00:00:00 [facility] dical (Prevnar 13) Branch Meningococcal B, [facility] 2016-03-07 Completed Univ ersity of 00:00:00 [facility] Pneumococcal 13 2016-03-07 Completed [facility]it y of Conjugate, PCV13 00:00:00 [facility] dical (Prevnar 13) Branch Meningococcal B, [facility] 2016-03-07 Completed Univ ersity of 00:00:00 [facility] Pneumococcal 13 2016-03-07 Completed [facility]it [facility] of Conjugate, PCV13 00:00:00 [place] [facility] (Prevnar 13) Branch Meningococcal B, [facility] 2016-03-07 Completed Univ ersity of 00:00:00 [facility] Pneumococcal 13 2016-03-07 Completed [facility]it y of Conjugate, PCV13 00:00:00 [facility] dical (Prevnar 13) Branch Meningococcal B, [facility] 2016-03-07 Completed Univ ersity of 00:00:00 [facility] Pneumococcal 13 2016-03-07 Completed [facility]it y of Conjugate, PCV13 00:00:00 [place] [facility] (Prevnar 13) Branch Meningococcal B, [facility] 2016-03-07 Completed Univ ersity of 00:00:00 [facility] Branch Pneumococcal 13 2016-03-07 Completed Universit y of Conjugate, PCV13 00:00:00 [place] [facility] (Prevnar 13) Branch Meningococcal B, [facility] 2016-03-07 Completed Univ ersity of 00:00:00 [facility] Pneumococcal 13 2016-03-07 Completed [facility]it y of Conjugate, PCV13 00:00:00 [place] [facility] (Prevnar 13) Branch Meningococcal B, [facility] 2016-03-07 Completed Univ ersity of 00:00:00 [facility] Branch Pneumococcal 13 2016-03-07 Completed [facility]it y of Conjugate, PCV13 00:00:00 [place] [facility] (Prevnar 13) Branch Meningococcal B, [facility] 2016-03-07 Completed Univ ersity of 00:00:00 [facility] Pneumococcal 13 2016-03-07 Completed [facility]it y of Conjugate, PCV13 00:00:00 [place] [facility] (Prevnar 13) Branch Meningococcal B, [facility] 2016-03-07 Completed Univ ersity of 00:00:00 [facility] Pneumococcal 13 2016-03-07 Completed [facility]it y of Conjugate, PCV13 00:00:00 [place] [facility] (Prevnar 13) Branch Meningococcal B, [facility] 2016-03-07 Completed Univ ersity of 00:00:00 [facility] Pneumococcal 13 2016-03-07 Completed [facility]it y of Conjugate, PCV13 00:00:00 [place] [facility] (Prevnar 13) Branch Meningococcal B, [facility] 2016-03-07 Completed Univ ersity of 00:00:00 [facility] Pneumococcal 13 2016-03-07 Completed [facility]it y of Conjugate, PCV13 00:00:00 [place] [facility] (Prevnar 13) Branch Meningococcal B, [facility] 2016-03-07 Completed Univ ersity of 00:00:00 [facility] Pneumococcal 13 2016-03-07 Completed [facility]it y of Conjugate, PCV13 00:00:00 [place] [facility] (Prevnar 13) Branch Meningococcal B, [facility] 2016-03-07 Completed Univ ersity of 00:00:00 [facility] Pneumococcal 13 2016-03-07 Completed [facility]it y of Conjugate, PCV13 00:00:00 [place] [facility] (Prevnar 13) Branch Meningococcal B, [facility] 2016-03-07 Completed Univ ersity of 00:00:00 [facility] Branch Pneumococcal 13 2016-03-07 Completed [facility]it y of Conjugate, PCV13 00:00:00 [place] [facility] (Prevnar 13) Branch Meningococcal B, [facility] 2016-03-07 Completed Univ ersity of 00:00:00 [facility] Pneumococcal 13 2016-03-07 Completed [facility]it y of Conjugate, PCV13 00:00:00 [place] [facility] (Prevnar 13) Branch Meningococcal B, [facility] 2016-03-07 Completed Univ ersity of 00:00:00 [facility] Pneumococcal 13 2016-03-07 Completed [facility]it y of Conjugate, PCV13 00:00:00 [place] [facility] (Prevnar 13) Branch Meningococcal B, [facility] 2016-03-07 Completed Univ ersity of 00:00:00 [facility] Pneumococcal 13 2016-03-07 Completed [facility]it y of Conjugate, PCV13 00:00:00 [place] [facility] (Prevnar 13) Branch Meningococcal B, [facility] 2016-03-07 Completed Univ ersity of 00:00:00 [facility] Pneumococcal 13 2016-03-07 Completed [facility]it y of Conjugate, PCV13 00:00:00 [place] [facility] (Prevnar 13) Branch Meningococcal B, [facility] 2016-03-07 Completed Univ ersity of 00:00:00 [facility] Pneumococcal 13 2016-03-07 Completed [facility]it y of Conjugate, PCV13 00:00:00 [place] [facility] (Prevnar 13) Branch Meningococcal B, [facility] 2016-03-07 Completed Univ ersity of 00:00:00 [facility] Pneumococcal 13 2016-03-07 Completed [facility]it y of Conjugate, PCV13 00:00:00 [place] [facility] (Prevnar 13) Branch Meningococcal B, [facility] 2016-03-07 Completed Univ ersity of 00:00:00 [facility] Pneumococcal 13 2016-03-07 Completed [facility]it y of Conjugate, PCV13 00:00:00 [place] [facility] (Prevnar 13) Branch Meningococcal B, [facility] 2016-03-07 Completed Univ ersity of 00:00:00 [facility] Pneumococcal 13 2016-03-07 Completed [facility]it y of Conjugate, PCV13 00:00:00 [place] [facility] (Prevnar 13) Branch Meningococcal B, [facility] 2016-03-07 Completed Univ ersity of 00:00:00 [facility] Branch Pneumococcal 13 2016-03-07 Completed Universit y of Conjugate, PCV13 00:00:00 [place] [facility] (Prevnar 13) Branch Meningococcal B, [facility] 2016-03-07 Completed Univ ersity of 00:00:00 [facility] Branch Pneumococcal 13 2016-03-07 Completed Universit y of Conjugate, PCV13 00:00:00 [place] [facility] (Prevnar 13) Branch Meningococcal B, [facility] 2016-03-07 Completed Univ ersity of 00:00:00 [facility] Pneumococcal 13 2016-03-07 Completed Universit y of Conjugate, PCV13 00:00:00 [place] [facility] (Prevnar 13) Branch Meningococcal B, [facility] 2016-03-07 Completed Univ ersity of 00:00:00 [facility] Pneumococcal 13 2016-03-07 Completed Universit y of Conjugate, PCV13 00:00:00 [place] [facility] (Prevnar 13) Branch Meningococcal B, [facility] 2016-03-07 Completed Univ ersity of 00:00:00 [facility] Pneumococcal 13 2016-03-07 Completed [facility]it y of Conjugate, PCV13 00:00:00 [place] [facility] (Prevnar 13) Branch Meningococcal B, [facility] 2016-03-07 Completed Univ ersity of 00:00:00 [facility] Pneumococcal 13 2016-03-07 Completed [facility]it y of Conjugate, PCV13 00:00:00 [place] [facility] (Prevnar 13) Branch Meningococcal B, [facility] 2016-03-07 Completed Univ ersity of 00:00:00 [facility] Pneumococcal 13 2016-03-07 Completed [facility] y of Conjugate, PCV13 00:00:00 [place] [facility] (Prevnar 13) Branch Meningococcal B, [facility] 2016-03-07 Completed Univ ersity of 00:00:00 [facility] Pneumococcal 13 2016-03-07 Completed [facility] y of Conjugate, PCV13 00:00:00 [place] [facility] (Prevnar 13) Branch Meningococcal B, [facility] 2016-03-07 Completed Univ ersity of 00:00:00 [facility] Pneumococcal 13 2016-03-07 Completed [facility] y of Conjugate, PCV13 00:00:00 [place] [facility] (Prevnar 13) Branch Meningococcal B, [facility] 2016-03-07 Completed Univ ersity of 00:00:00 [facility] Branch Pneumococcal 13 2016-03-07 Completed Universit y of Conjugate, PCV13 00:00:00 [place] [facility] (Prevnar 13) Branch Meningococcal B, [facility] 2016-03-07 Completed Univ ersity of 00:00:00 [facility] Branch Pneumococcal 13 2016-03-07 Completed Universit y of Conjugate, PCV13 00:00:00 [place] [facility] (Prevnar 13) Branch Meningococcal B, [facility] 2016-03-07 Completed Univ ersity of 00:00:00 [facility] Pneumococcal 13 2016-03-07 Completed Universit y of Conjugate, PCV13 00:00:00 [place] [facility] (Prevnar 13) Branch Meningococcal B, [facility] 2016-03-07 Completed Univ ersity of 00:00:00 [facility] Pneumococcal 13 2016-03-07 Completed Universit y of Conjugate, PCV13 00:00:00 [place] [facility] (Prevnar 13) Branch Meningococcal B, [facility] 2016-03-07 Completed Univ ersity of 00:00:00 [facility] Pneumococcal 13 2016-03-07 Completed Universit y of Conjugate, PCV13 00:00:00 [place] [facility] (Prevnar 13) Branch Meningococcal B, [facility] 2016-03-07 Completed Univ ersity of 00:00:00 [facility] Pneumococcal 13 2016-03-07 Completed Universit y of Conjugate, PCV13 00:00:00 [place] [facility] (Prevnar 13) Branch Meningococcal B, [facility] 2016-03-07 Completed Univ ersity of 00:00:00 [facility] Pneumococcal 13 2016-03-07 Completed Universit y of Conjugate, PCV13 00:00:00 [place] [facility] (Prevnar 13) Branch Meningococcal B, [facility] 2016-03-07 Completed Univ ersity of 00:00:00 [facility] Pneumococcal 13 2016-03-07 Completed [facility]it y of Conjugate, PCV13 00:00:00 [place] [facility] (Prevnar 13) Branch Meningococcal B, [facility] 2016-03-07 Completed Univ ersity of 00:00:00 [facility] Pneumococcal 13 2016-03-07 Completed [facility]it y of Conjugate, PCV13 00:00:00 [place] [facility] (Prevnar 13) Branch Meningococcal B, V 2016-03-07 Completed Univ ersity of 00:00:00 [facility] Pneumococcal 13 2016-03-07 Completed Universit y of Conjugate, PCV13 00:00:00 [place] [facility] (Prevnar 13) Branch Meningococcal B, V 2016-03-07 Completed Univ ersity of 00:00:00 [facility] Pneumococcal 13 2016-03-07 Completed Universit y of Conjugate, PCV13 00:00:00 [place] [facility] (Prevnar 13) Branch Meningococcal B, V 2016-03-07 Completed Univ ersity of 00:00:00 [facility] Pneumococcal 13 2016-03-07 Completed Universit y of Conjugate, PCV13 00:00:00 [place] [facility] (Prevnar 13) Branch Meningococcal B, V 2016-03-07 Completed Univ ersity of 00:00:00 [facility] Pneumococcal 13 2016-03-07 Completed Universit y of Conjugate, PCV13 00:00:00 [place] [facility] (Prevnar 13) Branch Meningococcal B, V 2016-03-07 Completed Univ ersity of 00:00:00 [facility] Pneumococcal 13 2016-03-07 Completed [facility] y of Conjugate, PCV13 00:00:00 [place] [facility] (Prevnar 13) Branch Meningococcal B, V 2016-03-07 Completed [facility] ersity of 00:00:00 [facility] Pneumococcal 13 2016-03-07 Completed [facility]it y of Conjugate, PCV13 00:00:00 [place] [facility] (Prevnar 13) Branch Meningococcal B, V 2016-03-07 Completed [facility] ersity of 00:00:00 [facility] Pneumococcal 13 2016-03-07 Completed Univers[facility] y of Conjugate, PCV13 00:00:00 [place] [facility] (Prevnar 13) Branch Meningococcal B, V 2016-03-07 Completed [facility] ersity of 00:00:00 [facility] Pneumococcal 13 2016-03-07 Completed [facility]it y of Conjugate, PCV13 00:00:00 [place] [facility] (Prevnar 13) Branch Meningococcal B, V 2016-03-07 Completed [facility] ersity of 00:00:00 [facility] Pneumococcal 13 2016-03-07 Completed Univers[facility] y of Conjugate, PCV13 00:00:00 [place] [facility] (Prevnar 13) Branch Meningococcal B, V 2016-03-07 Completed Univ ersity of 00:00:00 [facility] Pneumococcal 13 2016-03-07 Completed Universit y of Conjugate, PCV13 00:00:00 [place] [facility] (Prevnar 13) Branch Meningococcal B, V 2016-03-07 Completed [facility] ersity of 00:00:00 [facility] Pneumococcal 13 2016-03-07 Completed [facility]it y of Conjugate, PCV13 00:00:00 [place] [facility] (Prevnar 13) Branch Meningococcal B, V 2016-03-07 Completed [facility] ersity of 00:00:00 [facility] Pneumococcal 13 2016-03-07 Completed [facility]it y of Conjugate, PCV13 00:00:00 [place] [facility] (Prevnar 13) Branch Meningococcal B, [facility] 2016-03-07 Completed Univ ersity of 00:00:00 [facility] Pneumococcal 13 2016-03-07 Completed Universit y of Conjugate, PCV13 00:00:00 [place] [facility] (Prevnar 13) Branch Meningococcal B, [facility] 2016-03-07 Completed Univ ersity of 00:00:00 [facility] Pneumococcal 13 2016-03-07 Completed [facility]it y of Conjugate, PCV13 00:00:00 [place] [facility] (Prevnar 13) Branch Meningococcal B, [facility] 2016-03-07 Completed Univ ersity of 00:00:00 [facility] Pneumococcal 13 2016-03-07 Completed [facility] y of Conjugate, PCV13 00:00:00 [place] [facility] (Prevnar 13) Branch Meningococcal B, V 2016-03-07 Completed [facility] ersity of 00:00:00 [facility] Pneumococcal 13 2016-03-07 Completed [facility]it y of Conjugate, PCV13 00:00:00 [place] [facility] (Prevnar 13) Branch Meningococcal B, [facility] 2016-03-07 Completed Univ ersity of 00:00:00 [facility] Pneumococcal 13 2016-03-07 Completed [facility]it y of Conjugate, PCV13 00:00:00 [place] [facility] (Prevnar 13) Branch Meningococcal B, [facility] 2016-03-07 Completed Univ ersity of 00:00:00 [facility] Pneumococcal 13 2016-03-07 Completed [facility]it y of Conjugate, PCV13 00:00:00 [place] [facility] (Prevnar 13) Branch Meningococcal B, [facility] 2016-03-07 Completed Univ ersity of 00:00:00 [facility] Pneumococcal 13 2016-03-07 Completed Universit y of Conjugate, PCV13 00:00:00 [place] [facility] (Prevnar 13) Branch Meningococcal B, V 2016-03-07 Completed [facility] ersity of 00:00:00 [facility] Pneumococcal 13 2016-03-07 Completed Universit y of Conjugate, PCV13 00:00:00 [place] [facility] (Prevnar 13) Branch Meningococcal B, V 2016-03-07 Completed [facility] ersity of 00:00:00 [facility] Pneumococcal 13 2016-03-07 Completed [facility]it y of Conjugate, PCV13 00:00:00 [place] [facility] (Prevnar 13) Branch Meningococcal B, V 2016-03-07 Completed [facility] ersity of 00:00:00 [facility] Pneumococcal 13 2016-03-07 Completed [facility] y of Conjugate, PCV13 00:00:00 [place] [facility] (Prevnar 13) Branch Meningococcal B, V 2016-03-07 Completed [facility] ers[facility] of 00:00:00 [facility] Pneumococcal 13 2016-03-07 Completed [facility] y of Conjugate, PCV13 00:00:00 [place] [facility] (Prevnar 13) Branch Meningococcal B, V 2016-03-07 Completed [facility] ersity of 00:00:00 [facility] Pneumococcal 13 2016-03-07 Completed Universit y of Conjugate, PCV13 00:00:00 [place] [facility] (Prevnar 13) Branch Meningococcal B, [facility] 2016-03-07 Completed [facility] ersity of 00:00:00 [facility] Pneumococcal 13 2016-03-07 Completed Universit y of Conjugate, PCV13 00:00:00 [place] [facility] (Prevnar 13) Branch Meningococcal B, V 2016-03-07 Completed [facility] ersity of 00:00:00 [facility] Pneumococcal 13 2016-03-07 Completed Universit y of Conjugate, PCV13 00:00:00 [place] [facility] (Prevnar 13) Branch Meningococcal B, [facility] 2016-03-07 Completed Univ ersity of 00:00:00 [facility] Heamophilus Influenza 2015-11-13 Completed Uni versity of B 00:00:00 [facility] Heamophilus Influenza 2015-11-13 Completed Uni vers[facility] of B 00:00:00 [facility] Heamophilus Influenza 2015-11-13 Completed Uni vers[facility] of B 00:00:00 [facility] Heamophilus Influenza 2015-11-13 Completed Uni vers[facility] of B 00:00:00 [facility] Heamophilus Influenza 2015-11-13 Completed Uni vers[facility] of B 00:00:00 [facility] Heamophilus Influenza 2015-11-13 Completed Uni vers[facility] of B 00:00:00 [facility] Heamophilus Influenza 2015-11-13 Completed Uni vers[facility] of B 00:00:00 [facility] Heamophilus Influenza 2015-11-13 Completed Uni vers[facility] of B 00:00:00 [facility] Heamophilus Influenza 2015-11-13 Completed Uni vers[facility] of B 00:00:00 [facility] Heamophilus Influenza 2015-11-13 Completed [facility] vers[facility] of B 00:00:00 [facility] Heamophil[employer] Influenza 2015-11-13 Completed [facility] 00:00:00 [facility] Heamophilus Influenza 2015-11-13 Completed [facility] B 00:00:00 [facility] Heamophilus Influenza 2015-11-13 Completed [facility] B 00:00:00 [facility] Heamophilus Influenza 2015-11-13 Completed [facility] B 00:00:00 [facility] Heamophilus Influenza 2015-11-13 Completed [facility] B 00:00:00 [facility] Heamophilus Influenza 2015-11-13 Completed [facility] B 00:00:00 [facility] Heamophilus Influenza 2015-11-13 Completed [facility] B 00:00:00 [facility] Heamophilus Influenza 2015-11-13 Completed [facility] B 00:00:00 [facility] Heamophilus Influenza 2015-11-13 Completed [facility] B 00:00:00 [facility] Heamophilus Influenza 2015-11-13 Completed [facility] B 00:00:00 [facility] Heamophilus Influenza 2015-11-13 Completed [facility] B 00:00:00 [facility] Heamophilus Influenza 2015-11-13 Completed [facility] B 00:00:00 [facility] Heamophilus Influenza 2015-11-13 Completed [facility] B 00:00:00 [facility] Heamophilus Influenza 2015-11-13 Completed [facility] B 00:00:00 [facility] Heamophilus Influenza 2015-11-13 Completed [facility] B 00:00:00 [facility] Heamophilus Influenza 2015-11-13 Completed [facility] B 00:00:00 [facility] Heamophilus Influenza 2015-11-13 Completed [facility] B 00:00:00 [facility] Heamophilus Influenza 2015-11-13 Completed [facility] B 00:00:00 [facility] Heamophilus Influenza 2015-11-13 Completed [facility] B 00:00:00 [facility] Heamophilus Influenza 2015-11-13 Completed [facility] B 00:00:00 [facility] Heamophilus Influenza 2015-11-13 Completed [facility] B 00:00:00 [facility] Heamophilus Influenza 2015-11-13 Completed [facility] B 00:00:00 [facility] Heamophilus Influenza 2015-11-13 Completed [facility] B 00:00:00 [facility] Heamophilus Influenza 2015-11-13 Completed [facility] B 00:00:00 [facility] Heamophilus Influenza 2015-11-13 Completed [facility] B 00:00:00 [facility] Heamophilus Influenza 2015-11-13 Completed [facility] B 00:00:00 [facility] Heamophilus Influenza 2015-11-13 Completed [facility] B 00:00:00 [facility] Heamophilus Influenza 2015-11-13 Completed [facility] B 00:00:00 [facility] Heamophilus Influenza 2015-11-13 Completed [facility] B 00:00:00 [facility] Heamophilus Influenza 2015-11-13 Completed [facility] B 00:00:00 [facility] Heamophilus Influenza 2015-11-13 Completed [facility] B 00:00:00 [facility] Heamophilus Influenza 2015-11-13 Completed [facility] B 00:00:00 [facility] Heamophilus Influenza 2015-11-13 Completed [facility] B 00:00:00 [facility] Heamophilus Influenza 2015-11-13 Completed [facility] B 00:00:00 [facility] Heamophilus Influenza 2015-11-13 Completed [facility] B 00:00:00 [facility] Heamophilus Influenza 2015-11-13 Completed [facility] B 00:00:00 [facility] Heamophilus Influenza 2015-11-13 Completed [facility] B 00:00:00 [facility] Heamophilus Influenza 2015-11-13 Completed [facility] B 00:00:00 [facility] Heamophilus Influenza 2015-11-13 Completed [facility] B 00:00:00 [facility] Heamophilus Influenza 2015-11-13 Completed [facility] B 00:00:00 [facility] Heamophilus Influenza 2015-11-13 Completed [facility] B 00:00:00 [facility] Heamophilus Influenza 2015-11-13 Completed [facility] B 00:00:00 [facility] Heamophilus Influenza 2015-11-13 Completed [facility] B 00:00:00 [facility] Heamophilus Influenza 2015-11-13 Completed [facility] B 00:00:00 [facility] Heamophilus Influenza 2015-11-13 Completed [facility] B 00:00:00 [facility] Heamophilus Influenza 2015-11-13 Completed [facility] B 00:00:00 [facility] Heamophilus Influenza 2015-11-13 Completed [facility] B 00:00:00 [facility] Heamophilus Influenza 2015-11-13 Completed [facility] B 00:00:00 [facility] Heamophilus Influenza 2015-11-13 Completed [facility] B 00:00:00 [facility] Heamophilus Influenza 2015-11-13 Completed [facility] B 00:00:00 [facility] Heamophilus Influenza 2015-11-13 Completed [facility] B 00:00:00 [facility] Heamophilus Influenza 2015-11-13 Completed [facility] B 00:00:00 [facility] Heamophilus Influenza 2015-11-13 Completed [facility] B 00:00:00 [facility] Heamophilus Influenza 2015-11-13 Completed [facility] B 00:00:00 [facility] Heamophilus Influenza 2015-11-13 Completed [facility] B 00:00:00 [facility] Heamophilus Influenza 2015-11-13 Completed [facility] B 00:00:00 [facility] Heamophilus Influenza 2015-11-13 Completed [facility] B 00:00:00 [facility] Heamophilus Influenza 2015-11-13 Completed [facility] B 00:00:00 [facility] Heamophilus Influenza 2015-11-13 Completed [facility] B 00:00:00 [facility] Heamophilus Influenza 2015-11-13 Completed [facility] B 00:00:00 [facility] Heamophilus Influenza 2015-11-13 Completed [facility] B 00:00:00 [facility] Heamophilus Influenza 2015-11-13 Completed [facility] B 00:00:00 [facility] Heamophilus Influenza 2015-11-13 Completed [facility] B 00:00:00 [facility] Heamophilus Influenza 2015-11-13 Completed [facility] B 00:00:00 [facility] Heamophilus Influenza 2015-11-13 Completed [facility] B 00:00:00 [facility] Heamophilus Influenza 2015-11-13 Completed [facility] B 00:00:00 [facility] Heamophilus Influenza 2015-11-13 Completed [facility] B 00:00:00 [facility] Heamophilus Influenza 2015-11-13 Completed [facility] B 00:00:00 [facility] Heamophilus Influenza 2015-11-13 Completed [facility] B 00:00:00 [facility] Heamophilus Influenza 2015-11-13 Completed [facility] B 00:00:00 [facility] Heamophilus Influenza 2015-11-13 Completed [facility] B 00:00:00 [facility] Heamophilus Influenza 2015-11-13 Completed [facility] B 00:00:00 [facility] Meningococcal 2015-11-12 Completed [facility] Polysaccharide 00:00:00 [place] [facility] (groups A, C, Y and Branc h W-135) conjugate vaccine (MCV4P) Meningococcal 2015-11-12 Completed [facility] Polysaccharide 00:00:00 [facility] (groups A, C, Y and Branc h W-135) conjugate vaccine (MCV4P) Meningococcal 2015-11-12 Completed [facility] Polysaccharide 00:00:00 [facility] (groups A, C, Y and Branc h W-135) conjugate vaccine (MCV4P) Meningococcal 2015-11-12 Completed [facility] Polysaccharide 00:00:00 [facility] (groups A, C, Y and [...] Completed [facility] Polysaccharide 00[facility]00:00 [place] [facility] (groups A, C, Y and Branc h [...] Meningococcal 2015-11-12 Completed [facility] Polysaccharide 00:00:00 [facility] (groups A, C, Y and Branc h W-135) conjugate vaccine (MCV4P) Meningococcal 2015-11-12 Completed [facility] Polysaccharide 00:00:00 [facility] (groups A, C, Y and Branc h W-135) conjugate vaccine (MCV4P) Meningococcal 2015-11-12 Completed [facility] Polysaccharide 00:00:00 [facility] (groups A, C, Y and Branc h W-135) conjugate vaccine (MCV4P) TDAP 2015-10-31 Completed University of 00:00:00 [facility] TDAP 2015-10-31 Completed University of 00:00:00 [facility] TDAP 2015-10-31 Completed University of 00:00:00 [facility] TDAP 2015-10-31 Completed University of 00:00:00 [facility] TDAP 2015-10-31 Completed University of 00:00:00 [facility] TDAP 2015-10-31 Completed University of 00:00:00 [facility] TDAP 2015-10-31 Completed University of 00:00:00 [facility] TDAP 2015-10-31 Completed University of 00:00:00 [facility] TDAP 2015-10-31 Completed University of 00:00:00 [facility] TDAP 2015-10-31 Completed University of 00:00:00 [facility] TDAP 2015-10-31 Completed University of 00:00:00 [facility] TDAP 2015-10-31 Completed University of 00:00:00 [facility] TDAP 2015-10-31 Completed University of 00:00:00 [facility] TDAP 2015-10-31 Completed University of 00:00:00 [facility] TDAP 2015-10-31 Completed University of 00:00:00 [facility] TDAP 2015-10-31 Completed University of 00:00:00 [facility] TDAP 2015-10-31 Completed University of 00:00:00 [facility] TDAP 2015-10-31 Completed University of 00:00:00 [facility] TDAP 2015-10-31 Completed University of 00:00:00 [facility] TDAP 2015-10-31 Completed University of 00:00:00 [facility] TDAP 2015-10-31 Completed University of 00:00:00 [facility] TDAP 2015-10-31 Completed University of 00:00:00 [facility] TDAP 2015-10-31 Completed University of 00:00:00 [facility] TDAP 2015-10-31 Completed University of 00:00:00 [facility] TDAP 2015-10-31 Completed University of 00:00:00 [facility] TDAP 2015-10-31 Completed University of 00:00:00 [facility] TDAP 2015-10-31 Completed University of 00:00:00 [facility] TDAP 2015-10-31 Completed University of 00:00:00 [facility] TDAP 2015-10-31 Completed University of 00:00:00 [facility] TDAP 2015-10-31 Completed University of 00:00:00 [facility] TDAP 2015-10-31 Completed University of 00:00:00 [facility] TDAP 2015-10-31 Completed University of 00:00:00 [facility] TDAP 2015-10-31 Completed University of 00:00:00 [facility] TDAP 2015-10-31 Completed University of 00:00:00 [facility] TDAP 2015-10-31 Completed University of 00:00:00 [facility] TDAP 2015-10-31 Completed University of 00:00:00 [facility] TDAP 2015-10-31 Completed University of 00:00:00 [facility] TDAP 2015-10-31 Completed University of 00:00:00 [facility] TDAP 2015-10-31 Completed University of 00:00:00 [facility] TDAP 2015-10-31 Completed University of 00:00:00 [facility] TDAP 2015-10-31 Completed University of 00:00:00 [facility] TDAP 2015-10-31 Completed University of 00:00:00 [facility] TDAP 2015-10-31 Completed University of 00:00:00 [facility] TDAP 2015-10-31 Completed University of 00:00:00 [facility] TDAP 2015-10-31 Completed University of 00:00:00 [facility] TDAP 2015-10-31 Completed University of 00:00:00 [facility] TDAP 2015-10-31 Completed University of 00:00:00 [facility] TDAP 2015-10-31 Completed University of 00:00:00 [facility] TDAP 2015-10-31 Completed University of 00:00:00 [facility] TDAP 2015-10-31 Completed University of 00:00:00 [facility] TDAP 2015-10-31 Completed University of 00:00:00 [facility] TDAP 2015-10-31 Completed University of 00:00:00 [facility] TDAP 2015-10-31 Completed University of 00:00:00 [facility] TDAP 2015-10-31 Completed University of 00:00:00 [facility] TDAP 2015-10-31 Completed University of 00:00:00 [facility] TDAP 2015-10-31 Completed University of 00:00:00 [facility] TDAP 2015-10-31 Completed University of 00:00:00 [facility] TDAP 2015-10-31 Completed University of 00:00:00 [facility] TDAP 2015-10-31 Completed University of 00:00:00 [facility] TDAP 2015-10-31 Completed University of 00:00:00 [facility] TDAP 2015-10-31 Completed University of 00:00:00 [facility] TDAP 2015-10-31 Completed University of 00:00:00 [facility] TDAP 2015-10-31 Completed University of 00:00:00 [facility] TDAP 2015-10-31 Completed University of 00:00:00 [facility] TDAP 2015-10-31 Completed University of 00:00:00 [facility] TDAP 2015-10-31 Completed University of 00:00:00 [facility] TDAP 2015-10-31 Completed University of 00:00:00 [facility] TDAP 2015-10-31 Completed University of 00:00:00 [facility] TDAP 2015-10-31 Completed University of 00:00:00 [facility] TDAP 2015-10-31 Completed University of 00:00:00 [facility] TDAP 2015-10-31 Completed University of 00:00:00 [facility] TDAP 2015-10-31 Completed University of 00:00:00 [facility] TDAP 2015-10-31 Completed University of 00:00:00 [facility] TDAP 2015-10-31 Completed [facility] of 00:00:00 [facility] TDAP 2015-10-31 Completed University of 00:00:00 [facility] TDAP 2015-10-31 Completed University of 00:00:00 [facility] TDAP 2015-10-31 Completed University of 00:00:00 [facility] TDAP 2015-10-31 Completed University of 00:00:00 [facility] TDAP 2015-10-31 Completed University of 00:00:00 [facility] TDAP 2015-10-31 Completed University of 00:00:00 [facility] TDAP 2015-10-31 Completed University of 00:00:00 [facility] TDAP 2015-10-31 Completed University of 00:00:00 [facility] Pneumococcal 2014-04-01 Completed University [...] Time Observation Value Comments Source Systolic blood 2022-10-19 21:30:00 148 mm[Hg] Ivan mejia of pressure [facility] Diastolic blood 2022-10-19 21:30:00 89 mm[Hg] Unive rsity of pressure [facility] Heart rate 2022-10-19 21:30:00 115 /min [facility] Body temperature 2022-10-19 21:30:00 37.17 Melissa [facility] Respiratory rate 2022-10-19 21:30:00 16 /min Univ [facility] Oxygen saturation in 2022-10-19 21:30:00 97 /min [facility] of Arterial blood by [facility]xim[facility] Body height 2022-10-19 04:03:00 172.7 cm [facility] Body weight 2022-10-19 04:03:00 98.884 kg [facility] BMI 2022-10-19 04:03:00 33.15 kg/m2 [facility] Systolic blood 2022-10-18 16:13:00 102 mm[Hg] Univer sity of pressure [facility] Diastolic blood 2022-10-18 16:13:00 69 mm[Hg] Unive rsity of pressure [facility] Heart rate 2022-10-18 16:13:00 82 /min [facility] Body height 2022-10-18 16:13:00 157.5 cm [facility] Body weight 2022-10-18 16:13:00 98.884 kg [facility] BMI 2022-10-18 16:13:00 39.87 kg/m2 [facility] Oxygen saturation in 2022-10-18 16:13:00 99 /min [facility] Arterial blood by [facility] Systolic blood 2022-10-07 19:00:00 125 mm[Hg] Univer [facility]ity of pressure [facility] Diastolic blood 2022-10-07 19:00:00 78 mm[Hg] Un[facility] rsity of pressure [facility] Heart rate 2022-10-07 19:00:00 85 /min [facility] Respiratory rate 2022-10-07 19:00:00 18 /min [facility] Oxygen saturation in 2022-10-07 19:00:00 100 /min [facility] Arterial blood by [facility] Body temperature 2022-10-07 17:09:00 37.28 Melissa [facility] Body height 2022-10-07 17:09:00 157.5 cm [facility] Body weight 2022-10-07 17:09:00 102.059 kg [facility] BMI 2022-10-07 17:09:00 41.15 kg/m2 [facility] Systolic blood 2022-10-07 14:03:00 119 mm[Hg] Un[facility] of pressure [facility] Diastolic blood 2022-10-07 14:03:00 81 mm[Hg] Un[facility] rsity of pressure [facility] Heart rate 2022-10-07 14:03:00 104 /min [facility] Body temperature 2022-10-07 14:03:00 36.28 Melissa [facility] Body height 2022-10-07 14:03:00 157.5 cm [facility] Body weight 2022-10-07 14:03:00 102.377 kg [facility] BMI 2022-10-07 14:03:00 41.28 kg/m2 [facility] Oxygen saturation in 2022-10-07 14:03:00 100 /min [facility] Arterial blood by [facility]xim[facility] Systolic blood 2022-09-03 17:29:00 97 mm[Hg] Univer [facility]ity of pressure [facility] Diastolic blood 2022-09-03 17:29:00 64 mm[Hg] Unive rsity of pressure [facility] Heart rate 2022-09-03 17:29:00 95 /min [facility] Body temperature 2022-09-03 17:29:00 37.17 Melissa [facility] Body height 2022-09-03 17:29:00 157.5 cm [facility] Body weight 2022-09-03 17:29:00 101.606 kg [facility] BMI 2022-09-03 17:29:00 40.97 kg/m2 [facility] Oxygen saturation in 2022-09-03 17:29:00 96 /min [facility] Arterial blood by [facility] Systolic blood 2022-08-24 14:41:00 115 mm[Hg] Univer [facility]ity of pressure [facility] Diastolic blood 2022-08-24 14:41:00 77 mm[Hg] Unive rsity of pressure [facility] Heart rate 2022-08-24 14:41:00 105 /min [facility] Body temperature 2022-08-24 14:41:00 36.61 Melissa [facility] Body weight 2022-08-24 14:41:00 102.967 kg [facility] BMI 2022-08-24 14:41:00 41.52 kg/m2 [facility] Systolic blood 2022-07-27 13:03:00 112 mm[Hg] Univer [facility]ity of pressure [facility] Diastolic blood 2022-07-27 13:03:00 75 mm[Hg] Unive rsity of pressure [facility] Heart rate 2022-07-27 13:03:00 98 /min [facility] Body temperature 2022-07-27 13:03:00 36.83 Melissa [facility] Body weight 2022-07-27 13:03:00 102.967 kg [facility] BMI 2022-07-27 13:03:00 41.52 kg/m2 [facility] Oxygen saturation in 2022-07-27 13:03:00 94 /min [facility] Arterial blood by [facility] P[facility] Systolic blood 2022-06-17 15:45:00 104 mm[Hg] Univer [facility] of pressure [facility] Diastolic blood 2022-06-17 15:45:00 69 mm[Hg] [facility] rsity of pressure [facility] Heart rate 2022-06-17 15:45:00 97 /min [facility] Body height 2022-06-17 15:45:00 157.5 cm [facility] Body weight 2022-06-17 15:45:00 101.878 kg [facility] BMI 2022-06-17 15:45:00 41.08 kg/m2 [facility] Oxygen saturation in 2022-06-17 15:45:00 98 /min [facility] Arterial blood by [facility] P[facility] Systolic blood 2022-06-15 13:01:00 101 mm[Hg] Univer [facility]ity of pressure [facility] Diastolic blood 2022-06-15 13:01:00 68 mm[Hg] Unive rsity of pressure [facility] Heart rate 2022-06-15 13:01:00 74 /min [facility] Body temperature 2022-06-15 13:01:00 36.89 Melissa [facility] Body weight 2022-06-15 13:01:00 102.967 kg [facility] BMI 2022-06-15 13:01:00 41.52 kg/m2 [facility] Systolic blood 2022-03-27 12:44:00 131 mm[Hg] Univer [facility]ity of pressure [facility] Diastolic blood 2022-03-27 12:44:00 83 mm[Hg] Unive rsity of pressure [facility] Heart rate 2022-03-27 12:44:00 102 /min [facility] Body temperature 2022-03-27 12:44:00 37.11 Melissa [facility] Respiratory rate 2022-03-27 12:44:00 18 /min [facility] Body height 2022-03-27 12:44:00 157.5 cm [facility] Body weight 2022-03-27 12:44:00 96.616 kg [facility] BMI 2022-03-27 12:44:00 38.96 kg/m2 [facility] Oxygen saturation in 2022-03-27 12:44:00 98 /min [facility] Arterial blood by [facility] P[facility] Systolic blood 2022-03-02 15:40:00 113 mm[Hg] Univer [facility]ity of pressure [facility] Diastolic blood 2022-03-02 15:40:00 72 mm[Hg] Unive rsity of pressure [facility] Heart rate 2022-03-02 15:40:00 82 /min [facility] Respiratory rate 2022-03-02 15:40:00 16 /min [facility] Oxygen saturation in 2022-03-02 15:40:00 97 /min [facility] Arterial blood by [facility] Pulse oximetry [facility] Body temperature 2022-03-02 15:23:00 36.28 Melissa The [facility] [place] [place] Body weight 2022-02-24 17:00:00 100.245 kg [facility] BMI 2022-02-24 17:00:00 40.42 kg/m2 [facility] Systolic blood 2022-03-02 15:25:00 98 mm[Hg] Univer sity of pressure [facility] Diastolic blood 2022-03-02 15:25:00 55 mm[Hg] Unive rsity of [facility] Heart rate 2022-03-02 15:25:00 85 /min [facility] Respiratory rate 2022-03-02 15:25:00 18 /min [facility] Oxygen saturation in 2022-03-02 15:25:00 100 /min University of Arterial blood by [facility] Pulse oximetry Branch Body temperature 2022-03-02 15:23:[address] [facility] Body weight 2022-02-24 17:00:00 100.245 kg [facility] BMI 2022-02-24 17:00:00 40.42 kg/m2 [facility] Procedures Procedure Date / Time Performing Source Performed Clinician COMP. METABOLIC PANEL (19656) 2022-10-19 Tina Curtis Un iversity of 11:22:00 [facility] GIARDIA CRYPTOSPORIDIUM AG SCR 2022-10-19 Tina Curtis U niversity of 05:09:00 [facility] FECAL PATHOGENS BY PCR 2022-10-19 Tina Curtisit y of 05:09:00 [facility] CT ABDOMEN PELVIS W CONTRAST 2022-10-18 Kemal Myers U niversity of 23:00:00 [facility] POCT TEST 2022-10-18 [facility] 22:15:00 F [facility] LIPASE 2022-10-18 [facility] of 22:08:00 F [facility] FREE T4 2022-10-18 [facility] of 22:08:00 [facility] THYROID STIMULATING HORMONE 2022-10-18 [facility] ersity of 22:08:00 [facility] COMP. METABOLIC PANEL ([id number]) 2022-10-18 [facility] of 22:08:00 [facility] CBC WITH DIFF 2022-10-18 [facility] of 22:08:00 F [facility] URINALYSIS 2022-10-18 [facility] of 22:08:00 [facility] CONSENT/REFUSAL FOR DIAGNOSIS AND 2022-10-18 [facility] 20:52:07 Unassigned, No [facility] URINE CULTURE 2022-10-18 [facility] 17:46:00 [facility] BASIC METABOLIC PANEL (NA, K, CL, 2022-10-18 [place] [address], GLUCOSE, BUN, CREATININE, CA) 17:24:00 [facility] POCT URINALYSIS AUTO 2022-10-18 [facility] 16:15:00 [facility] DISCLOSURE AND CONSENT, MEDICAL 2022-10-18 [facility] AND SURGICAL PROCEDURES 06:01:00 Unassigned, No [facility] HOSPITAL ADMISSION 2022-10-18 [facility] of 06:01:00 Unassigned, No [facility] LACTIC ACID WHOLE BLOOD 2022-10-07 Destiny Oneill [facility] ty of 18:28:00 [facility] LIPASE 2022-10-07 Destiny Oneill [place] of 18:16:00 [facility] COMP. METABOLIC PANEL ([id number]) 2022-10-07 Destiny Oneill iversity of 18:16:00 [facility] CBC WITH DIFF 2022-10-07 Destiny Oneill [place] of 18:16:00 [facility] URINALYSIS 2022-10-07 Destiny Oneill of 18:16:00 [facility] CONSENT/REFUSAL FOR DIAGNOSIS AND 2022-10-07 [facility] 16:58:17 Unassigned, No [facility] POCT HEMOGLOBIN A1C TEST 2022-08-24 Tray Jolly of 00:00:00 [facility] DME/SUPPLY JUSTIFICATION 2022-08-05 Doctor [facility] ity of 06:01:00 Unassigned, No [facility] SARS-COV-2 COVID-19 CHRISTELLE-SUCROSE 2022-07-27 Tray Jolly [place] of VACCINE 12 YRS+, BIVALENT 0.3ML, 13:13:29 [facility] IM, (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) Br anch MEDICATION CORRESPONDENCE 2022-07-19 [facility] sit of 05:01:00 Unassigned, No [facility] DISABILITY/FMLA 2022-07-01 Doctor [place] of 05:01:00 Unassigned, No [facility] MR THORACIC SPINE WO CONTRAST 2022-06-30 Brunilda, Crystal Un iversity of 16:22:01 [facility] [place] MR CERVICAL SPINE WO CONTRAST 2022-06-30 Brunilda, Crystal Un iversity of 16:20:35 [facility] CONSENT/REFUSAL FOR DIAGNOSIS AND 2022-06-30 [facility] 14:32:21 Unassigned, No [facility] CONSENT/REFUSAL FOR DIAGNOSIS AND 2022-06-30 [facility] 14:32:20 Unassigned, No [facility] Branch INSURANCE CORRESPONDENCE 2022-06-17 [facility] of 05:01:00 Unassigned, No [place] [facility] POWER OF SURFACING MACHINE OPERATOR 2022-06-01 [facility] of 05:01:00 Unassigned, No [facility] POWER OF SURFACING MACHINE OPERATOR 2022-05-13 [facility] 05:01:00 Unassigned, No [place] [facility] DME/SUPPLY JUSTIFICATION 2022-05-06 Doctor [facility] of 05:01:00 Unassigned, No [facility] EMG/NCV 2022-04-08 [facility] of 14:43:00 [facility] CONSENT/REFUSAL FOR DIAGNOSIS AND 2022-03-27 [facility] 12:40:53 Unassigned, No [facility] PHYSICIAN ORDERS 2022-03-19 [facility] of 05:01:00 Unassigned, No [facility] COLONOSCOPY (ENDO) 2022-03-02 Tray Jolly [place] of 14:43:32 [facility] COLONOSCOPY (ENDO) 2022-03-02 Rik [facility] of 14:43:32 [facility] COLONOSCOPY 2022-03-02 [facility] of 14:02:00 [facility] ESOPHAGOGASTRODUODENOSCOPY 2022-03-02 Willi [facility] ersity of 14:02:00 [facility] EGD (ENDO) 2022-03-02 [facility] 13:53:24 [facility] EGD (ENDO) 2022-03-02 [facility] of 13:53:24 [facility] POCT GLUCOSE(AGE >30DAYS) 2022-03-02 [facility] ersity of 12:59:00 [facility] POCT GLUCOSE(AGE >30DAYS) 2022-03-02 [facility] ersity of 12:59:00 [facility] POCT GLUCOSE (AUTOMATED) 2022-03-02 [facility] sity of 12:58:00 [facility] POCT GLUCOSE (AUTOMATED) 2022-03-02 [facility] sity of 12:58:00 [facility] POCT TEST 2022-03-02 [facility] of 12:48:00 [facility] POCT TEST 2022-03-02 [facility] of 12:48:00 [facility] DAY SURGERY - ADC 2022-03-02 [facility] of 05:01:00 Unassigned, No [facility] Branch DME/SUPPLY JUSTIFICATION 2022-01-04 Doctor [facility] ity of 05:01:00 Unassigned, No [facility] Branch DME/SUPPLY JUSTIFICATION 2022-01-04 Doctor [facility] ity of 05:01:00 Unassigned, No [facility] DISCLOSURE AND CONSENT, MEDICAL 2021-12-28 [facility] AND SURGICAL PROCEDURES 05:01:00 Unassigned, No [facility] dical Name Branch DISCLOSURE AND CONSENT, MEDICAL 2021-12-28 [facility] AND SURGICAL PROCEDURES 05:01:00 Unassigned, No [facility] dical Name Branch Encounters Start End Encounter Admission Attending Care Care Encounter Source Date/Time Date/Time Type Type Clinicians Facility Department ID 2022-02-16 Outpatient Brock MÁRQUEZ ALFRANDY MARCUS [id number] Univers 10:29:45 CECILE flores of [facility] 2021-12-01 Outpatient Brock MÁRQUEZ UTFRANDY VELAZQUEZ [id number] Univers 13:05:09 CECILE flores [facility] 2021-11-04 Outpatient Brock MÁRQUEZ [facility] MARCUS [id number] Univers 15:43:22 CECILE flores [facility] 2021-07-27 Emergency [facility] [id number] Univers 19:11:28 ity of [facility] 2021-07-27 Emergency [facility] [id number] Univers 10:12:30 ity of [facility] 2021-07-27 Emergency [facility] [id number] Univers 06:35:13 ity of [facility] 2021-07-27 Emergency [facility] [id number] Univers 04:01:19 ity of [facility] 2021-07-26 Emergency [facility] [id number] Univers 12:06:22 ity of [facility] 2021-07-26 Emergency [facility] [id number] Univers 11:43:46 ity [facility] 2023-02-22 2023-02-22 Outpatient Brock JOLLY [facility] [id number] Univers 09:15:00 09:15:00 TRAY flores [facility] 2022-11-01 2022-11-01 Outpatient Brock JOLLY [facility] [id number] Univers 14:30:00 14:30:00 TRAY flores [facility] 2022-10-21 2022-10-21 Outpatient [facility] [id number] Univers 15:45:00 15:45:00 CECILE flores [facility] 2022-10-20 2022-10-20 Nurse CLAU Stark 1.2.840.114 [id number] Univers 00:00:00 00:00:00 Triage Kvng GALICIA 350.1.13.10 it [facility] 4.2.7.2.686 Emanuel as [id number] [address] 2022-10-18 2022-10-19 Emergency Kemal Myers 1.2. 840.114 [id number] Univers 15:07:00 17:48:00 Geovanny Willis 350.1.13.10 ity [facility] 4.2.7.2.686 [place] [id number] [facility] [address] [place] 2022-10-19 2022-10-[address] [facility] 1.2.052.225 [id number] Univers 00:00:00 00:00:00 Vern PRIMARY 350.1.13.10 it y of [facility] 4.2.7.2.686 [place] [id number] Il dical [address] [place] 2022-10-18 2022-10-18 Outpatient R [facility] [id number] Univers 11:45:00 13:42:03 BEVERLY flores o altagracia [facility] 2022-10-18 2022-10-18 Switchboard And Control Room Operator 2, Adc Lab [facility] 1.2.840.114 [id number] Univers 11:45:00 13:42:03 Visit Beverly Cornelius 350.1.13. 10 ity of [place] 4.2.7.2.686 [place] [id number] Il dical NAL 353 [facility] 2022-10-18 2022-10-18 Outpatient [facility] [id number] Univers 11:45:00 13:42:03 BEVERLY flores o altagracia [facility] 2022-10-18 2022-10-18 Office Cornelius, [facility] 1.2.840.114 [id number] Univers 11:00:00 11:14:47 Visit Beverly GREGORIO 350.1.13.10 ity of [facility] 4.2.7.2.686 [place] [id number] Il dical NAL 204 [facility] 2022-10-18 2022-10-18 Orders Doctor CLAU 1.2.840.114 [id number] Univers 00:00:00 00:00:00 Only Unassigned, GRAYSON 350.1.13.10 ity of [place] [facility] 4.2.7.2.686 Emanuel as [phone] [facility] [address] [place] 2022-10-18 2022-10-18 Telephone Rik [facility] 1.2.840.114 [id number] Univers 00:00:00 00:00:00 [facility] 350.1.13.10 it y of Edward [place] 4.2.7.2.686 Emanuel as JOLLY?BLEA [id number] [address] OFFICE [facility] 2022-10-15 2022-10-15 Outpatient R KASSIDY [facility] [id number] Univers 10:45:00 11:31:42 LAYNE jay [facility] 2022-10-12 2022-10-12 [facility] 1.2.840.114 [id number] Univers 00:00:00 00:00:00 [facility] 350.1.13.10 it y of Edward [place] 4.2.7.2.686 Emanuel as JOLLY?BLEA [id number] [address] OFFICE [facility] 2022-10-07 2022-10-[address] [facility] ERT [id number] Univers 11:11:00 13:18:[address] [facility] [place] [place] 2022-10-07 2022-10-[address] [facility] 1.2.767.616 [id number] Univers 11:11:00 13:18:00 Destiny [place] 350.1.13.10 i ty of [place]ANMIRIAN 4.2.7.2.[address] [facility] [id number] [address] 2022-10-07 2022-10-[address] [facility] 1.2.840.114 [id number] Univers 09:45:00 10:00:00 Visit [facility] 350.1.13.10 it y of [place] 4.2.7.2.686 Emanuel as JOLLY?BLEA [id number] [address] OFFICE [facility] 2022-10-07 2022-10-07 Outpatient R VAN [facility] [id number] Univers 09:45:00 08:37:[address] [facility] [place] [place] 2022-10-04 2022-10-04 [facility] 1.2.840.114 [id number] Univers 00:00:00 00:00:00 [facility] 350.1.13.10 it y of Edward [place] 4.2.7.2.686 Emanuel as JOLLY?BLEA [id number] [address] OFFICE [facility] 2022-09-28 2022-09-28 Outpatient R RIK [facility] [id number] Univers 08:00:00 08:00:00 TRAY ity of [facility] 2022-09-10 2022-09-10 Refill [facility] 1.2.840.114 [id number] Univers 00:00:00 00:00:00 [facility] 350.1.13.10 it y of [facility] 4.2.7.2.686 Emanuel as JOLLY?BLEA [phone] [address] OFFICE [facility] 2022-09-08 2022-09-08 [place] [facility] 1.2.840.114 [id number] Univers 00:00:00 00:00:00 [facility] 350.1.13.10 it y of Edbrittnee [place] 4.2.7.2.686 Emanuel as JOLLY?BLEA [id number] [address] OFFICE [facility] 2022-09-08 2022-09-08 Nurse Delilah OLGUIN 1.2.840.114 [id number] Univers 00:00:00 00:00:00 Triage dMelony 350.1.13.10 ity of [facility] 4.2.7.2.686 Emanuel as [phone] [address] 2022-09-06 2022-09-[address] [facility] 1.2.840.114 [id number] Univers 00:00:00 00:00:00 [facility] 350.1.13.10 ity of [place] 4.2.7.2.686 Emanuel as JOLLY?BLEA [id number] [address] OFFICE [facility] 2022-09-06 2022-09-[address] [facility] 1.2.415.100 [id number] Univers 00:00:00 00:00:00 Cecile GREGORIO 350.1.13.10 i ty of [place] 4.2.7.2.686 [place] [id number] Me dical SAVITA 188 [facility] 2022-09-03 2022-09-03 Outpatient R MISTY [facility] [id number] Univers 11:30:00 11:48:06 BERRY itjay [facility] 2022-09-03 2022-09-03 Office Misty [facility] 1.2.840.114 [id number] Univers 11:30:00 11:48:06 Visit Berry [facility] 350.1.13.10 it y of [place] 4.2.7.2.686 Emanuel as JOLLY?BLEA [phone] Il dical CONTRERAS [address] [facility] OFFICE [facility] 2022-08-24 2022-08-24 Outpatient R RIK [facility] [id number] Univers 09:00:00 09:00:[address] [facility] [place] [place] 2022-08-24 2022-08-[address] [facility] 1.2.840.114 [id number] Univers 09:00:00 09:00:00 Visit [facility] 350.1.13.10 it y of Edward [place] 4.2.7.2.686 Emanuel as JOLLY?BLEA [id number] Il dicroshan CHAIREZ [address] [place] [address] OFFICE [facility] 2022-08-24 2022-08-24 Outpatient R RIK [facility] [id number] Univers 09:00:00 08:53:13 [facility] 2022-08-24 2022-08-[address] [facility] 1.2.840.114 [id number] Univers 00:00:00 00:00:00 Wondiful A HEALTH 350.1.13.10 ity of [place] 4.2.7.2.686 Emanuel as JOLLY?BLEA [id number] Il dical CONTRERAS [address] [facility] OFFICE [facility] 2022-08-22 2022-08-[address] [facility] 1.2.840.114 [id number] Univers 00:00:00 00:00:00 Wondiful A HEALTH 350.1.13.10 ity of [place] 4.2.7.2.686 Emanuel as JOLLY?BLEA [id number] [address] MEDICAL OFFICE [facility] 2022-08-13 2022-08-13 Outpatient R MARY JANE [facility] [id number] Univers 14:00:00 14:00:00 MATEO flores [facility] 2022-08-06 2022-08-06 Telephone [facility] 1.2.840.114 [id number] Univers 00:00:00 00:00:00 Tray HEALTH 350.1.13.10 it y of Edward [place] 4.2.7.2.686 Emanuel as JOLLY?BLEA [id number] [address] MEDICAL OFFICE [facility] 2022-08-05 2022-08-05 Orders Doctor CLAU 1.2.840.114 [id number] Univers 00:00:00 00:00:00 Only Unassigned, GRAYSON 350.1.13.10 ity of [place] [facility] 4.2.7.2.686 Emanuel as [id number] [address] 2022-07-29 2022-07-29 Refill [facility] 1.2.840.114 [id number] Univers 00:00:00 00:00:00 Tray HEALTH 350.1.13.10 it y of [place] 4.2.7.2.686 Emanuel as JOLLY?BLEA [id number] [address] OFFICE [facility] 2022-07-27 2022-07-27 Outpatient R RIK [facility] [id number] Univers 08:00:00 08:25:43 TRAY flores [facility] 2022-07-27 2022-07-27 Office [facility] 1.2.840.114 [id number] Univers 08:00:00 08:25:43 Visit [facility] 350.1.13.10 it y of [place] 4.2.7.2.686 Emanuel as JOLLY?BLEA [id number] [address] OFFICE [facility] 2022-07-19 2022-07-19 Orders Doctor CLAU 1.2.840.114 [id number] Univers 00:00:00 00:00:00 Only Unassigned, GRAYSON 350.1.13.10 ity of [place] [facility] 4.2.7.2.686 Emanuel as [id number] [facility] [address] [place] 2022-07-08 2022-07-08 Aleshiafranchesca Rik [facility] 1.2.840.114 [id number] Univers 00:00:00 00:00:00 Tray JG 350.1.13.10 i ty of [place] 4.2.7.2.686 [place] [id number] Il dical [address] 2022-07-07 2022-07-07 Outpatient R STELLA WORLEY [facility] [id number] Univers 00:00:00 00:00:00 STELLA WORLEY it y [facility] 2022-07-01 2022-07-01 Orders Doctor CLAU 1.2.840.114 [id number] Univers 00:00:00 00:00:00 Only Unassigned, GRAYSON 350.1.13.10 ity of [place] [facility] 4.2.7.2.686 Emanuel as [id number] [address] 2022-06-30 2022-06-30 Outpatient R STELLA WORLEY [facility] [id number] Univers 09:34:33 23:59:00 STELLA WORLEY it y [facility] 2022-06-30 2022-06-30 [facility] Brunilda, [facility] 1.2.840.114 [id number] Univers 09:34:33 23:59:00 Encounter [place] 350.1.13.10 ity of [place] 4.2.7.2.686 [id number] [address] 2022-06-30 2022-06-30 [facility] 1.2.840.114 [id number] Univers 09:34:16 23:59:00 Encounter [place] 350.1.13.10 ity of [place] 4.2.7.2.686 [place] [id number] [address] 2022-06-30 2022-06-30 Orders Doctor CLAU 1.2.840.114 [id number] Univers 00:00:00 00:00:00 Only Unassigned, GRAYSON 350.1.13.10 ity of [place] [facility] 4.2.7.2.686 Emanuel as [id number] [address] 2022-06-30 2022-06-30 Telephone Stella Worley [facility] 1.2.840.114 [id number] Univers 00:00:00 00:00:00 HEALTH 350.1.13.10 it y of [place] 4.2.7.2.686 [place] [id number] [address] OFFICE BUILDING 2022-06-24 2022-06-24 Outpatient R BRUNILDA STELLA [facility] [id number] Univers 00:00:00 00:00:00 BRUNILDA STELLA it y of [facility] 2022-06-24 2022-06-24 Telephone BrunildaStella [facility] 1.2.840.114 [id number] Univers 00:00:00 00:00:00 HEALTH 350.1.13.10 it y of [place] 4.2.7.2.686 [place] [id number] [address] OFFICE BUILDING 2022-06-21 2022-06-21 Outpatient R RIK [facility] [id number] Univers 11:00:00 11:00:00 TRAY itjay [facility] 2022-06-21 2022-06-[address] [facility] 1.2.840.114 [id number] Univers 00:00:00 00:00:00 Tray HEALTH 350.1.13.10 it y of [place] 4.2.7.2.686 Emanuel as JOLLY?BLEA [id number] Il gabi [address] OFFICE BUILDING 2022-06-17 2022-06-17 Office BrunildaStella [facility] 1.2.840.114 [id number] Univers 11:00:00 11:30:00 Visit HEALTH 350.1.13.10 it y of [place] 4.2.7.2.686 [place] [id number] [address] OFFICE BUILDING 2022-06-17 2022-06-17 Outpatient R STELLA WORLEY [facility] [id number] Univers 11:00:00 11:00:00 BRUNILDA STELLA thompson of [facility] 2022-06-17 2022-06-17 Stella Barrow [facility] 1.2.840.114 [id number] Univers 00:00:00 00:00:00 HEALTH 350.1.13.10 it y of [place] 4.2.7.2.686 [place] [id number] [facility] [address] OFFICE BUILDING 2022-06-17 2022-06-17 Orders Doctor CLAU 1.2.840.114 [id number] Univers 00:00:00 00:00:00 Only Unassigned, GRAYSON 350.1.13.10 ity of [place] [facility] 4.2.7.2.686 Emanuel as [id number] [address] 2022-06-16 2022-06-16 Telephone [facility] 1.2.840.114 [id number] Univers 00:00:00 00:00:00 [facility] 350.1.13.10 it y of [place] BYERSCHRISTELLE 4.2.7.2.686 Emanuel as JOLLY?BLEA [id number] Il samir[address] OFFICE [facility] 2022-06-15 2022-06-15 Outpatient R [facility] [id number] [facility] 08:00:00 08:25:29 TRAY ity [facility] 2022-06-15 2022-06-15 Office [facility] 1.2.840.114 [id number] Univers 08:00:00 08:25:29 Visit [facility] 350.1.13.10 it y of [place] BYERSCHRISTELLE 4.2.7.2.686 Emanuel as JOLLY?BLEA [id number] Il samirroshan [address] OFFICE [facility] 2022-06-14 2022-06-14 Telephone [facility] 1.2.840.114 [id number] Univers 00:00:00 00:00:00 Cecile GREGORIO 350.1.13.10 i ty of [place] 4.2.7.2.686 [place] [id number] Il gabi [place] [address] Branch [facility] 2022-06-11 2022-06-11 Telephone [facility] 1.2.840.114 [id number] Univers 00:00:00 00:00:00 Tray HEALTH 350.1.13.10 it y of [place] 4.2.7.2.686 Emanuel as JOLLY?BLEA [id number] [facility] JACOBS [address] [facility] OFFICE BUILDING 2022-06-09 2022-06-09 Telephone Rik [facility] 1.2.840.114 [id number] Univers 00:00:00 00:00:00 Tray HEALTH 350.1.13.10 it y of [place] 4.2.7.2.686 Emanuel as JOLLY?BLEA [phone] [address] OFFICE BUILDING 2022-06-04 2022-06-04 RefStella Hamilton [facility] 1.2.840.114 [id number] Univers 00:00:00 00:00:00 HEALTH 350.1.13.10 it y [place] 4[place]7.2.686 [place] [phone] [address] OFFICE [facility] 2022-06-04 2022-06-04 Telephone NurseRy [facility] 1.2.840.114 [id number] Univers 00:00:00 00:00:00 HEALTH 350.1.13.10 it y of [place] 4.2.7.2.686 Emanuel as JOLLY?BLEA [phone] [facility] [address] OFFICE [facility] 2022-06-04 2022-06-[address] [facility] 1.2.803.125 [id number] Univers 00:00:00 00:00:00 Cecile GREGORIO 350.1.13.10 i ty of [place] [phone] Il samir[address] 2022-06-03 2022-06-03 Outpatient R STELLA WORLEY [facility] [id number] Univers 09:30:00 09:30:00 STELLA WORLEY it y of [facility] 2022-06-02 2022-06-02 Stella Barrow [facility] 1.2.840.114 [id number] Univers 00:00:00 00:00:00 HEALTH 350.1.13.10 it y of [place].2.[place] [id number] [address] OFFICE BUILDING 2022-06-02 2022-06-02 RefStella Hamilton [facility] 1.2.840.114 [id number] Univers 00:00:00 00:00:00 HEALTH 350.1.13.10 it y of [place] [id number] [address] OFFICE [facility] 2022-06-02 2022-06-[address] [facility] 1.2.840.114 [id number] Univers 00:00:00 00:00:00 Cecile GREGORIO 350.1.13.10 i ty [facility] 4.2.7.[place] [id number] Il dic[address] 2022-06-01 2022-06-01 Orders Doctor CLAU 1.2.840.114 [id number] Univers 00:00:00 00:00:00 Only Unassigned, GRAYSON 350.1.13.10 ity of [place] [facility] 4.2.7.2.686 Emanuel as [phone] [address] 2022-06-01 2022-06-01 Stella Barrow [facility] 1.2.840.114 [id number] Univers 00:00:00 00:00:00 HEALTH 350.1.13.10 it y of [place].2.[place] [id number] [address] OFFICE [facility] 2022-06-01 2022-06-[address] [facility] 1.2.612.418 [id number] [id number] Univers 00:00:00 00:00:00 Cecile GREGORIO 350.1.13.10 i ty of [place] 4.[place].7.2.[place] [id number] Il dical NAL 188 [facility] 2022-05-28 2022-05-28 Reffranchesca Jolly [facility] 1.2.840.114 [id number] Univers 00:00:00 00:00:00 Tray HEALTH 350.1.13.10 it y of Scotty GREG[place]IO 4.2.7.2.686 Emanuel as JOLLY?BLEA [phone] Il gabi CHAIREZ [address] [place] [address] MEDICAL OFFICE BUILDING 2022-05-26 2022-05-26 Refill Stella Worley [facility] 1.2.840.114 [id number] Univers 00:00:00 00:00:00 HEALTH 350.1.13.10 it y of [place] 4.2.7.2.686 [place] mitzy [place] [phone] [facility] [address] OFFICE BUILDING 2022-05-18 2022-05-18 Outpatient R SANJAY SÁNCHEZ [facility] [id number] Univers 09:00:00 09:00:00 ity of [facility] 2022-05-17 2022-05-17 Outpatient R RIK [facility] [id number] Univers 09:00:00 09:00:[address] [facility] [place] [place] 2022-05-13 2022-05-13 Orders Doctor CLAU 1.2.840.114 [id number] Univers 00:00:00 00:00:00 Only Unassigned, GRAYSON 350.1.13.10 ity of [place] [facility] 4.2.7.2.686 Emanuel as [id number] [address] 2022-05-13 2022-05-13 Telephone Rik [facility] 1.2.840.114 [id number] [id number] Univers 00:00:00 00:00:00 [facility] 350.1.13.10 it y of Edbrittnee [place] 4.2.7.2.686 Emanuel as JOLLY?BLEA [phone] Il gabi CHAIREZ [address] [place] [address] MEDICAL OFFICE [facility] 2022-05-10 2022-05-10 Outpatient R RIK [facility] [id number] Univers 16:15:00 16:15:00 TRAY phillipsy [facility] 2022-05-10 2022-05-10 Outpatient STELLA DAVILA [facility] [id number] Univers 00:00:00 00:00:00 STELLA WORLEY it y of [facility] 2022-05-06 2022-05-06 Telephone Stella Worley [facility] 1.2.840.114 [id number] Univers 00:00:00 00:00:00 HEALTH 350.1.13.10 it y of [place]2.[place].2.[place] [phone] [facility] [address] OFFICE BUILDING 2022-05-06 2022-05-06 Orders Doctor CLAU 1.2.840.114 [id number] Univers 00:00:00 00:00:00 Only Unassigned, GRAYSON 350.1.13.10 ity of [place] [facility] 4.2.7.2.686 Emanuel as [id number] [address] 2022-04-29 2022-04-29 Outpatient Brock AGUILAR [facility] [id number] Univers 14:00:00 14:00:00 CLAU ity [facility] 2022-04-14 2022-04-14 Outpatient VIK TAVERA [facility] [id number] Univers 09:00:00 09:00:00 ity [facility] 2022-04-12 2022-04-[address] [facility] 1.2.840.114 [id number] Univers 00:00:00 00:00:00 Ricardo GREGORIO 350.1.13.10 ity of [place] 4.2.7.2.[place] [id number] Il dical NAL [address] [facility] 2022-04-09 2022-04-09 Outpatient Brock BARR [facility] [id number] Univers 11:00:00 11:00:00 ISAC ity [facility] 2022-04-08 2022-04-08 [facility] [address] 1.2.840.114 [id number] Univers 08:30:00 23:59:00 Encounter Sheri [facility] 350.1.13.10 ity of [place].2.[place].2.[place] [id number] [facility] [address] OFFICE BUILDING 2022-04-08 2022-04-08 Outpatient R AGUSTINA [facility] [id number] Univers 08:30:00 23:59:00 EFRENNM ity o f [facility] 2022-04-08 2022-04-08 Stella Laboy [facility] 1.2.840.114 [id number] Univers 00:00:00 00:00:00 HEALTH 350.1.13.10 it y of [place]2.[place].2.686 [place] [id number] [facility] [address] OFFICE [facility] 2022-04-02 2022-04-02 Outpatient R MARY JANE [facility] [id number] Univers 09:30:00 09:30:00 MATEO flores [facility] 2022-03-31 2022-03-31 Telephone [facility] 1.2.840.114 [id number] Univers 00:00:00 00:00:00 [facility] 350.1.13.10 it y of [place] [facility] 4.2.7.2.686 Emanuel as JOLLY?BLEA [id number] [address] 2022-03-27 2022-03-27 Emergency [facility] 1.2.486.420 1677 1900 Univers 07:48:00 08:22:00 Destiny GREGORIO 350.1.13.10 i ty of [place].2.7.2.[place] [id number] [place] [address] [place] 2022-03-27 2022-03-27 Emergency X [facility] ERT [id number] Univers 07:48:00 08:22:00 DESTINY flores [facility] 2022-03-27 2022-03-27 Orders Doctor OLGUIN 1.2.840.114 [id number] Univers 00:00:00 00:00:00 Only Unassigned, GRAYSON 350.1.13.10 ity of [place] [facility] 4.2.7.2.686 Emanuel as [id number] [facility] [address] 2022-03-24 2022-03-24 Telephone [facility] 1.2.840.114 [id number] [id number] Univers 00:00:00 00:00:00 Tray HEALTH 350.1.13.10 it y of [place] 4.2.7.2.686 Emanuel as JOLLY?BLEA [id number] [address] OFFICE [facility] 2022-03-19 2022-03-19 Orders Doctor OLGUIN 1.2.840.114 [id number] Univers 00:00:00 00:00:00 Only Unassigned, GRAYSON 350.1.13.10 ity of [place] [facility] 4.2.7.2.686 Emanuel as [phone] [address] 2022-03-19 2022-03-19 Telephone [facility] 1.2.840.114 [id number] [id number] Univers 00:00:00 00:00:00 Tray HEALTH 350.1.13.10 it y of [place] 4.2.7.2.686 Emanuel as JOLLY?BLEA [id number] [address] MEDICAL OFFICE BUILDING 2022-03-17 2022-03-17 Telephone [facility] 1.2.840.114 [id number] [id number] Univers 00:00:00 00:00:00 Tray HEALTH 350.1.13.10 it y of [place] 4.2.7.2.686 Emanuel as JOLLY?BLEA [id number] [address] MEDICAL OFFICE [facility] 2022-03-12 2022-03-12 Stella Barrow [facility] 1.2.840.114 [id number] Univers 00:00:00 00:00:00 HEALTH 350.1.13.10 it y of [place]2.7.2.[place] [id number] [place] [address] [place] OFFICE BUILDING 2022-03-08 2022-03-08 Telephone [facility] 1.2.840.114 [id number] [id number] Univers 00:00:00 00:00:00 [facility] 350.1.13.10 it y of [place] 4.2.7.2.686 Emanuel as JOLLY?BLEA [id number] [address] MEDICAL OFFICE BUILDING 2022-03-02 2022-03-[address] [facility] MARCUS [id number] [id number] Univers 07:39:00 11:22:00 CECILE itjay of [facility] 2022-03-02 2022-03-02 [facility] 1.2.840.114 [id number] Univers 07:39:00 11:22:00 Encounter Cecile GREGORIO 350.1.13.10 ity of [facility] 4.2.7.2.686 [place] [id number] [facility] [address] 2022-03-02 2022-03-02 Surgery [facility] 1.2.670.938 [id number] 7779 Univers 09:11:00 10:25:00 Cecilemichelle GREGORIO 350.1.13.10 i ty of [place] 4.2.7.2.[place] [id number] [facility] [address] 2022-03-02 2022-03-02 Orders Doctor CLAU 1.2.840.114 [id number] Univers 00:00:00 00:00:00 Only Unassigned, GRAYSON 350.1.13.10 ity of [place] [facility] 4.2.7.2.686 Emanuel as [id number] [facility] [address] 2022-03-01 2022-03-01 Telephone [facility] 1.2.840.114 [id number] Univers 00:00:00 00:00:00 Cecile GREGORIO 350.1.13.10 i ty of [place] 4.2.7.2.686 [place] [id number] Il dical NAL [address] [facility] 2022-03-01 2022-03-[address] [facility] 1.2.840.114 [id number] Univers 00:00:00 00:00:00 Ricardo GREGORIO 350.1.13.10 ity of [place] 4.2.7.2.686 [place] [id number] Il dical NAL [address] [facility] 2022-02-25 2022-02-25 Outpatient R RIK [facility] [id number] Univers 11:00:00 11:00:00 TRAY ity of [facility] 2022-02-25 2022-02-25 Telephone Stella Worley [facility] 1.2.840.114 [id number] Univers 00:00:00 00:00:00 HEALTH 350.1.13.10 it y of [place]2.[place].2.[place] [phone] [facility] [address] OFFICE BUILDING 2022-02-24 2022-02-24 Telephone [facility] 1.2.840.114 [id number] Univers 00:00:00 00:00:00 Tray HEALTH 350.1.13.10 it y of [place] 4.2.7.2.686 Emanuel as JOLLY?BLEA [phone] [facility] CHAIREZ [address] [place] [address] OFFICE [facility] 2022-02-23 2022-02-23 Telephone [facility] 1.2.840.114 [id number] [id number] Univers 00:00:00 00:00:00 Tray HEALTH 350.1.13.10 it y of [place] 4.2.7.2.686 Emanuel as JOLLY?BLEA [phone] [facility] ARLENE[address] OFFICE [facility] 2022-02-22 2022-02-[address] [facility] 1.2.840.114 [id number] Univers 00:00:00 00:00:00 Wondiful A HEALTH 350.1.13.10 ity of [place] 4.2.7.2.686 Emanuel as JOLLY?BLEA [phone] [facility] CHAIREZ [address] [place] [address] OFFICE [facility] 2022-02-18 2022-02-18 Patient [facility] 1.2.840.114 [id number] Univers 00:00:00 00:00:00 Secure Msg Tray HEALTH 350.1.13.10 ity of [place] 4.2.7.2.686 Emanuel as JOLLY?BLEA [id number] Il gabi CHAIREZ [address] [place] [address] OFFICE [facility] 2022-02-18 2022-02-18 Telephone [facility] 1.2.840.114 [id number] Univers 00:00:00 00:00:00 Tray [place] 350.1.13.10 i ty of Edbrittnee [place] 4.2.7.2.[place] [id number] [facility] [address] 2022-02-16 2022-02-16 Outpatient R [facility] [id number] Univers 09:15:00 09:30:10 TRAY ity of [facility] 2022-02-16 2022-02-16 Office [facility] 1.2.840.114 [id number] Univers 09:15:00 09:30:10 Visit Tray [facility] 350.1.13.10 it y of [place] 4.2.7.2.686 Emanuel as JOLLY?BLEA [id number] [address] MEDICAL OFFICE BUILDING 2022-02-16 2022-02-16 Outpatient Brock JOLLY [facility] [id number] Univers 09:15:00 09:15:00 TRAY flores [facility] 2022-02-16 2022-02-16 Telephone Vik Oliveira [facility] 1..840.114 [id number] Univers 00:00:00 00:00:00 HEALTH 350.1.13.10 it y of [place] 4[place]2.7.2.[place] [id number] [address] OFFICE [facility] 2022-02-15 2022-02-15 Outpatient Brock HENRIQUEZ [facility] [id number] [facility] 15:15:00 15:15:[address] [facility] [place] 2022-02-14 2022-02-14 Nurse CLAU Zarate 1..158.548 [id number] [id number] Univers 00:00:00 00:00:00 Triage Young GALICIA 350.1.13.10 it y of HOSPITAL 4.2.7.2.686 Emanuel as [id number] [address] 2022-02-12 2022-02-12 Telephone Rik [facility] 1..840.114 [id number] [id number] Univers 00:00:00 00:00:00 [facility] HEALTH 350.1.13.10 it y of [place] 4.2.7.2.686 Emanuel as JOLLY?BLEA [id number] [address] OFFICE BUILDING 2022-02-11 2022-02-11 Telephone Stella Worley [facility] 1.2.840.114 [id number] Univers 00:00:00 00:00:00 HEALTH 350.1.13.10 it y of [place] 4[place]2.[place].2.686 [place] [id number] [address] OFFICE BUILDING 2022-02-11 2022-02-11 Telephone Vik Oliveira [facility] 1.2.840.114 [id number] Univers 00:00:00 00:00:00 HEALTH 350.1.13.10 it y of [place] 4.2.7.2.686 [place] [id number] [address] OFFICE BUILDING 2022-02-10 2022-02-10 Outpatient R MARISELA [facility] [id number] Univers 00:00:00 00:00:00 ity of [facility] 2022-02-10 2022-02-10 Outpatient R MARISELA [facility] [id number] Univers 00:00:00 00:00:00 ity of [facility] 2022-02-10 2022-02-10 Orders Doctor CLAU 1.2.840.114 [id number] Univers 00:00:00 00:00:00 Only Unassigned, GRAYSON 350.1.13.10 ity of [place] [facility] 4.2.7.2.686 Emanuel as [id number] [address] 2022-02-08 2022-02-08 Outpatient R STELLA WORLEY [facility] [id number] Univers 10:00:00 11:34:48 STELLA WORLEY it y of [facility] 2022-02-08 2022-02-08 Office Stella Worley [facility] 1.2.840.114 [id number] Univers 10:00:00 11:34:48 Visit HEALTH 350.1.13.10 it y of [place] 4.2.7.2.686 [place] [id number] [address] OFFICE BUILDING 2022-02-01 2022-02-01 Telephone Momo [facility] 1.2.770.841 [id number] [id number] Univers 00:00:00 00:00:00 Isac S HEALTH 350.1.13.10 it y of [place] 4.2.7.2.686 Emanuel as JOLLY?BLEA [id number] Il gabi [address] MEDICAL OFFICE BUILDING 2022-01-28 2022-01-28 Orders Doctor OLGUIN 1.2.840.114 [id number] Univers 00:00:00 00:00:00 Only Unassigned, GRAYSON 350.1.13.10 ity of [place] [facility] 4.2.7.2.686 Emanuel as [id number] [facility] [address] 2022-01-27 2022-01-27 Telephone [facility] 1.2.840.114 [id number] Univers 00:00:00 00:00:00 Tray HEALTH 350.1.13.10 it y of [place] 4.2.7.2.686 Emanuel as JOLLY?BLEA [id number] [address] OFFICE [facility] 2022-01-27 2022-01-27 Telephone [facility] 1.2.840.114 [id number] [id number] Univers 00:00:00 00:00:00 [facility] 350.1.13.10 it y of [place] 4.2.7.2.686 Emanuel as JOLLY?BLEA [id number] [address] OFFICE [facility] 2022-01-27 2022-01-27 Telephone Vik Oliveira [facility] 1.2.840.114 [id number] Univers 00:00:00 00:00:00 HEALTH 350.1.13.10 it y of [place] 4[place]2.7.2.686 [place] [id number] [facility] [address] OFFICE [facility] 2022-01-25 2022-01-25 Outpatient [facility] [id number] Univers 10:20:49 23:59:00 MATEO flores [facility] 2022-01-25 2022-01-25 [facility] ..840.114 [id number] Univers 10:00:00 23:59:00 Encounter Mateo GREGORIO 350.1.13.10 ity [facility] 4.2.7.2.686 [place] [id number] [facility] [address] 2022-01-25 2022-01-25 Outpatient R [facility] [id number] Univers 00:00:00 00:00:00 MATEO flores [facility] 2022-01-25 2022-01-25 Orders Doctor OLGUIN 1.2.840.114 [id number] Univers 00:00:00 00:00:00 Only Unassigned, GRAYSON 350.1.13.10 ity of [place] [facility] 4.2.7.2.686 Emanuel as [id number] [address] 2022-01-22 2022-01-22 Telephone [facility] 1.2.840.114 [id number] [id number] Univers 00:00:00 00:00:00 Tray HEALTH 350.1.13.10 it y of [place] 4.2.7.2.686 Emanuel as JOLLY?BLEA [id number] [address] MEDICAL OFFICE [facility] 2022-01-22 2022-01-22 Orders Doctor CLAU 1.2.840.114 [id number] Univers 00:00:00 00:00:00 Only Unassigned, GRAYSON 350.1.13.10 ity of [place] [facility] 4.2.7.2.686 Emanuel as [id number] [address] 2022-01-21 2022-01-21 RefUAB [facility] 1.2.840.114 [id number] Univers 00:00:00 00:00:00 Wondiful A HEALTH 350.1.13.10 ity of [place] 4.2.7.2.686 Emanuel as JOLLY?BLEA [id number] [address] OFFICE [facility] 2022-01-20 2022-01-20 RefUAB [facility] 1.2.840.114 [id number] Univers 00:00:00 00:00:00 Wondiful A HEALTH 350.1.13.10 ity of [place] 4.2.7.2.686 Emanuel as JOLLY?BLEA [id number] [address] OFFICE [facility] 2022-01-19 2022-01-19 Telephone [facility] 1.2.840.114 [id number] [id number] Univers 00:00:00 00:00:00 Tray HEALTH 350.1.13.10 it y of [place] 4.2.7.2.686 Emanuel as JOLLY?BLEA [id number] [address] OFFICE [facility] 2022-01-18 2022-01-18 Refill [facility] 1.2.840.114 [id number] Univers 00:00:00 00:00:00 Tray HEALTH 350.1.13.10 it y of [place] 4.2.7.2.686 Emanuel as JOLLY?BLEA [id number] Il dicroshan CHAIREZ [address] [facility] OFFICE [facility] 2022-01-13 2022-01-13 [facility] 1.2.840.114 [id number] [id number] Univers 00:00:00 00:00:00 Arnoldo [place] 350.1.13.10 i ty of [place] 4.2.7.2.[place] [id number] Il dicroshan BARNEY 204 [facility] 2022-01-11 2022-01-11 Outpatient Brock BARR [facility] [id number] Univers 14:45:00 23:59:00 [facility] 2022-01-11 2022-01-11 Outpatient [facility] [id number] Univers 14:45:00 23:59:00 [facility] 2022-01-11 2022-01-[address] [facility] 1.2.840.114 [id number] Univers 13:45:00 14:00:00 Visit [facility] 350.1.13.10 it y of [place] 4.2.7.2.686 Emanuel as JOLLY?BLEA [id number] Il gabi CHAIREZ [address] [facility] OFFICE [facility] 2022-01-11 2022-01-11 Outpatient Brock BARR [facility] [id number] Univers 13:45:00 13:45:00 [facility] 2022-01-07 2022-01-07 [facility]phone [facility] 1.2.840.114 [id number] Univers 00:00:00 00:00:00 Tray HEALTH 350.1.13.10 it y of [place] 4.2.7.2.686 Emanuel as JOLLY?BLEA [phone] Il dicroshan CAHIREZ 044 [facility] OFFICE [facility] 2022-01-06 2022-01-[address] [facility] 1.2.840.114 [id number] [id number] Univers 00:00:00 00:00:00 Wondiful A HEALTH 350.1.13.10 ity of [place] 4.2.7.2.686 Emanuel as JOLLY?BLEA [phone] Il gabi CHAIREZ [address] [place] [address] OFFICE [facility] 2022-01-05 2022-01-05 Telephone [facility] 1.2.840.114 [id number] [id number] Univers 00:00:00 00:00:00 Tray HEALTH 350.1.13.10 it y of [place] 4.2.7.2.686 Emanuel as JOLLY?BLEA [id number] Il gabi CHAIREZ [address] [place] [address] OFFICE [facility] 2022-01-04 2022-01-04 Telephone [facility] 1.2.840.114 [id number] [id number] Univers 00:00:00 00:00:00 [facility] 350.1.13.10 it y of [place] 4.2.7.2.686 Emanuel as JOLLY?BLEA [phone] Il gabi JACOBS[address] 2021-12-31 2021-12-31 Telephone [facility] 1.2.840.114 [id number] [id number] Univers 00:00:00 00:00:00 [facility] 350.1.13.10 it y of [place] 4.2.7.2.686 Emanuel as JOLLY?BLEA [phone] Il gabi JACOBS[address] 2021-12-31 2021-12-31 [facility] 1.2.840.114 [id number] [id number] Univers 00:00:00 00:00:00 [facility] 350.1.13.10 it y of [place] 4.2.7.2.686 Emanuel as JOLLY?BLEA [phone] Il gabi CHAIREZ [address] [place] [address] OFFICE [facility] 2021-12-30 2021-12-30 Patient [facility] 12.840.114 [id number] [id number] Univers 00:00:00 00:00:00 Outreach [facility] Alyssa HEALTH [id number] ity of [place] 4.2.7.2.686 Emanuel as PROFESSIO [phone] [facility] [address] [facility] 2021-12-28 2021-12-28 [id number] Univers 09:30:00 10:07:08 CECILE flores [facility] 2021-12-28 2021-12-28 [facility] [id number] Univers 09:30:00 10:07:08 CECILE flores [facility] 2021-12-28 2021-12-28 Office [facility] [id number] Univers 09:30:00 10:07:08 Visit Cecile GREGORIO [id number] i [place] [phone] [address] 2021-12-24 2021-12-24 Outpatient R [facility] [id number] Univers 14:00:00 14:00:00 ity of [facility] 2021-12-24 2021-12-24 Patient [facility] 1..840.114 [id number] Univers 00:00:00 00:00:00 Secure Msg Tray EdPuzzle 350.1.13.10 ity of [place] 4.2.7.2.686 Emanuel as JOLLY?BLEA [phone] [address] OFFICE [facility] 2021-12-22 2021-12-22 Telephone [facility] [id number] Univers 00:00:00 00:00:00 Cecile GREGORIO 350.1.13.10 i [place] [phone] [address] 2021-12-16 2021-12-16 Telephone [facility] [id number] Univers 00:00:00 00:00:00 Tray HEALTH 350.1.13.10 it y of [place] 4.2.7.2.686 Emanuel as JOLLY?BLEA [phone] [address] OFFICE [facility] 2021-12-11 2021-12-11 Surgery [facility] [id number] Univers 10:33:00 11:46:00 Cecile GREGORIO 350.1.13.10 i ty [place] SURGICAL [phone] [facility] [address] 2021-12-11 2021-12-11 Surgery [facility] [id number] Univers 10:33:00 11:46:00 Cecile GREGORIO 350.1.13.10 i ty [place] [phone] [facility] [address] 2021-12-11 2021-12-11 Surgery [facility] [id number] Univers 10:33:00 11:46:00 Cecile GREGORIO 350.1.13.10 i ty [facility] 4[place].2.[place] [phone] [facility] [address] 2021-12-11 2021-12-11 Outpatient R [facility] [id number] Univers 08:40:00 11:25:[address] [facility] [place] [place] 2021-12-11 2021-12-11 [facility] 1.2.840.114 [id number] Univers 08:40:00 11:25:00 Encounter Cecile BYERSCHRISTELLE 350.1.13.10 ity of [facility] 4.2.7.2.[place]ICAL [phone] [facility] [address] [place] 2021-12-11 2021-12-11 Outpatient [facility] MARCUS [id number] Univers 08:40:00 11:25:[address] [facility] [place] [place] 2021-12-11 2021-12-11 Outpatient R [facility] MARCUS [id number] Univers 08:40:00 11:25:00 CECILE jay [facility] 2021-12-11 2021-12-11 Orders Doctor OLGUIN 1.2.840.114 [id number] Univers 00:00:00 00:00:00 Only Unassigned, GRAYSON 350.1.13.10 ity of [place] [facility] 4.2.7.2.686 Emanuel as [phone] [address] 2021-12-09 2021-12-[address] [facility] 1.2.840.114 [id number] Univers 00:00:00 00:00:00 [facility] A HEALTH 350.1.13.10 ity of [facility] 4.2.7.2.686 Emanuel as JOLLY?BLEA [phone] Il gabi CHAIREZ [address] [facility] OFFICE [facility] 2021-12-08 2021-12-08 Outpatient R [facility] [id number] Univers 13:00:00 13:00:00 ity of [facility] 2021-12-08 2021-12-08 [facility] 1.2.840.114 [id number] Univers 00:00:00 00:00:00 [facility] 350.1.13.10 it y of Edbrittnee [facility] 4.2.7.2.686 Emanuel as JOLLY?BLEA [phone] Il gabi CHAIREZ 0[address] [facility] 2021-12-08 2021-12-08 Telephone [facility] 1.2.840.114 [id number] Univers 00:00:00 00:00:00 [facility] 350.1.13.10 it y of Scotty [facility] 4.2.7.2.686 Emanuel as JOLLY?BLEA [phone] Il gabi CHAIREZ 044 [facility] 2021-12-03 2021-12-03 Outpatient R [facility] [id number] Univers 13:30:00 13:30:00 ORPHEUS ity of [facility] 2021-12-03 2021-12-[address] [facility] 1.2.840.114 [id number] Univers 00:00:00 00:00:00 Cecile GREGORIO 350.1.13.10 i ty of [place] [phone] Il gabi BARNEY 188 [facility] 2021-12-03 2021-12-[address] [facility] 1.2.840.114 [id number] Univers 00:00:00 00:00:00 Wondiful A HEALTH 350.1.13.10 ity of [place] 4.2.7.2.686 Emanuel as PROFESSIO [phone] Il gabi BARNEY [address] [place] [address] OFFICE BUILDING ONE 2021-12-01 2021-12-01 Outpatient R NISA [facility] [id number] Univers 14:15:00 14:54:12 WONDIFUL ity o f [facility] 2021-12-01 2021-12-[address] [facility] 1.2.840.114 [id number] Univers 14:15:00 14:54:12 Visit Wondiful A HEALTH 350.1.13.10 ity of [place] 4.2.7.2.686 Emanuel as JOLLY?BLEA [phone] Il gabi CHAIREZ [address] [place] [address] OFFICE BUILDING 2021-12-01 2021-12-01 [facility] [id number] Univers 14:15:00 14:54:12 WONDIFUL ity o f [facility] 2021-12-01 2021-12-[address] [facility] 1.2.840.114 [id number] Univers 00:00:00 00:00:00 Outreach Vik L HEALTH 350.1.13.10 i ty of [place] 4.2.7.2.686 Emanuel as JOLLY?BLEA [phone] Il gabi CHAIREZ [address] [place] [address] OFFICE BUILDING 2021-12-01 2021-12-01 Patient Scot [facility] 1.2.840.114 [id number] Univers 00:00:00 00:00:00 Outreach Vik L HEALTH 350.1.13.10 i ty of [place] 4.2.7.2.686 Emanuel as JOLLY?BLEA [phone] Il gabi CHAIREZ [address] [place] [address] MEDICAL OFFICE BUILDING 2021-11-18 2021-11-18 Outpatient R NISA [facility] [id number] Univers 10:00:00 10:44:34 WONDIFUL ity o f [facility] 2021-11-18 2021-11-18 Outpatient R NISA [facility] [id number] Univers 10:00:00 10:44:34 WONDIFUL ity o f [facility] 2021-11-18 2021-11-18 Outpatient R NISA, [facility] [id number] Univers 10:00:00 10:00:00 WONDIFUL ity o f [facility] 2021-11-18 2021-11-18 Outpatient R NISA, [facility] [id number] Univers 10:00:00 10:00:00 WONDIFUL ity o f [facility] 2021-11-18 2021-11-18 Outpatient R NISA, [facility] [id number] Univers 10:00:00 10:00:00 WONDIFUL ity o f [facility] 2021-11-16 2021-11-16 Outpatient R WILLI, [facility] [id number] Univers 09:30:00 09:30:00 CECILE jay [facility] 2021-11-16 2021-11-16 Outpatient R WILLI [facility] [id number] Univers 09:30:00 09:30:00 CECILE jay [facility] 2021-11-16 2021-11-16 Outpatient R WILLI, [facility] [id number] Univers 09:30:00 09:30:00 CECILE jay [facility] 2021-11-15 2021-11-[address] [facility] ERT [id number] Univers 09:06:00 12:49:00 DESTINY jay [facility] 2021-11-15 2021-11-[address] [facility] 1.2.559.398 [id number] Univers 09:06:00 12:49:00 Destiny GREGORIO 350.1.13.10 i ty [facility] 4.2.7.2.686 [facility] [phone] [place] [address] Branch 2021-11-15 2021-11-[address] [facility] ERT [id number] Univers 09:06:00 12:49:00 DESTINY jay [facility] 2021-11-10 2021-11-[address] [facility] 1.2.840.114 [id number] Univers 00:00:00 00:00:00 Wondiful A HEALTH 350.1.13.10 ity of [place] 4.2.7.2.686 Emanuel as JOLLY?BLEA [phone] [address] MEDICAL OFFICE [facility] 2021-11-05 2021-11-05 Orders Doctor CLAU 1.2.840.114 [id number] Univers 00:00:00 00:00:00 Only Unassigned, GRAYSON 350.1.13.10 ity of [place] [facility] 4.2.7.2.686 Emanuel as [phone] [facility] [address] [place] 2021-11-05 2021-11-05 Telephone [facility] 1.2.840.114 [id number] Univers 00:00:00 00:00:00 Wondiful A HEALTH 350.1.13.10 ity of [place] 4.2.7.2.686 Emanuel as JOLLY?BLEA [phone] [address] MEDICAL OFFICE [facility] 2021-11-03 2021-11-03 Telephone [facility] 1.2.840.114 [id number] Univers 00:00:00 00:00:00 Wondiful A HEALTH 350.1.13.10 ity of [facility] 4.2.7.2.686 Emanuel as JOLLY?BLEA [phone] [address] OFFICE [facility] 2021-11-03 2021-11-03 Telephone [facility] 1.2.840.114 [id number] Univers 00:00:00 00:00:00 Wondiful A HEALTH 350.1.13.10 ity of [facility] 4.2.7.2.686 Emanuel as JOLLY?BLEA [phone] [address] MEDICAL OFFICE [facility] 2021-10-27 2021-10-27 Case Sanjay Sánchez 1.2.840.114 [id number] Univers 00:00:00 00:00:00 Management H 350.1.13.10 ity of [facility] 4.2.7.2.686 Emanuel as [phone] [facility] [address] 2021-10-26 2021-10-26 Telephone Sanjay Sánchez 1.2.840.114 [id number] Univers 00:00:00 00:00:00 H 350.1.13.10 it y of [facility] 4.2.7.2.686 Emanuel as [phone] [facility] [address] 2021-10-23 2021-10-[address] [facility] 1.2.913.244 [id number] Univers 00:00:00 00:00:00 Corry GREGORIO 350.1.13.10 ity of [place].2.[place] [phone] [facility] [place] [address] Branch BUILDING 2021-10-22 2021-10-22 Outpatient Brock BARR [facility] [id number] Univers 14:45:00 14:45:00 ISAC ity [facility] 2021-10-22 2021-10-22 [facility] [id number] Univers 14:45:00 14:45:00 ISAC ity [facility] 2021-10-22 2021-10-22 Outpatient Brock BARR [facility] [id number] Univers 14:45:00 14:45:00 ISAC ity [facility] 2021-10-22 2021-10-22 Outpatient Brock BARR [facility] [id number] Univers 14:45:00 14:45:00 [facility] 2021-10-19 2021-10-[address] [facility] 1.2.840.114 [id number] Univers 00:00:00 00:00:00 Wondiful A HEALTH 350.1.13.10 ity of [place] 4.2.7.2.686 Emanuel as JOLLY?BLEA [id number] [address] MEDICAL OFFICE BUILDING 2021-10-13 2021-10-13 [facility] [id number] Univers 10:30:00 10:41:12 [facility] 2021-10-[address] [facility] 1.2.840.114 [id number] Univers 10:30:00 10:41:12 Visit Corry Bryan GREGORIO 350.1.13.10 ity of [place].2.[place] [phone] Me dical NAL 204 [facility] 2021-10-13 2021-10-13 Outpatient R JAYMIE [facility] [id number] Univers 10:30:00 10:41:12 CORRY flores [facility] 2021-09-29 2021-09-29 Out[facility] [id number] Univers 16:14:01 23:59:00 CAPRICE flores [facility] 2021-09-29 2021-09-29 Out[facility] [id number] Univers 16:14:01 23:59:00 CAPRICE flores [facility] 2021-09-29 2021-09-[address] [facility] 1.2.840.114 [id number] Univers 16:14:01 23:59:00 Encounter Caprice HEALTH 350.1.13.10 ity of [place] 4.2.7.2.686 Emanuel as JOLLY?BLEA [phone] Il dical ARLENEKISHORE [address] [facility] OFFICE [facility] 2021-09-29 2021-09-29 Outpatient [facility] [id number] Univers 16:14:01 23:59:00 [facility] 2021-09-29 2021-09-[address] [facility] 1.2.840.114 [id number] Univers 16:00:00 16:58:02 Visit [facility] 350.1.13.10 it y of [place] 4.2.7.2.686 Emanuel as JOLLY?BLEA [phone] Il samirroshan ARLENEKISHORE [address] [facility] OFFICE [facility] 2021-09-29 2021-09-29 Outpatient R MOMO [facility] [id number] Univers 16:00:00 16:58:02 ISAC ity [facility] 2021-09-29 2021-09-29 Outpatient Brock BARR [facility] [id number] Univers 16:00:00 16:58:02 ISAC ity [facility] 2021-09-29 2021-09-29 Outpatient [facility] [id number] Univers 16:00:00 16:00:00 [facility] 2021-09-242021-09-24 Outpatient R MOMO [facility] [id number] Univers 14:00:00 14:00:00 ISAC flores [facility] 2021-09-19 2021-09-19 Nurse Caprice Ozuna 1.2.840.114 [id number] Univers 00:00:00 00:00:00 Triage GRAYSON 350.1.13.10 it y of [facility] 4.2.7.2.686 Emanuel as [phone] [facility] [address] 2021-09-09 2021-09-[address] [facility] 1.2.840.114 [id number] Univers 00:00:00 00:00:00 Surgery Corry Adams JG 350.1.13.10 ity of [place].2.[place].2.[place] [phone] Il dical NAL 204 [facility] 2021-09-08 2021-09-[address] [facility] 1.2.416.430 [id number] Univers 14:30:00 16:16:36 Visit Cecile JG 350.1.13.10 i ty of [place] 4.2.7.2.686 [place] [phone] Il dical NAL 188 [facility] 2021-09-08 2021-09-08 Outpatient R WILLI [facility] [id number] Univers 14:30:00 16:16:36 CECILE flores [facility] 2021-09-08 2021-09-08 [facility] [id number] Univers 14:30:00 16:16:36 CECILE flores [facility] 2021-09-08 2021-09-08 Outpatient [facility] [id number] Univers 14:30:00 14:30:00 CECILE alanjay [facility] 2021-09-08 2021-09-08 Orders Doctor OLGUIN 1.2.840.114 [id number] Univers 00:00:00 00:00:00 Only Unassigned, GRAYSON 350.1.13.10 ity of [place] [facility] 4.2.7.2.686 Emanuel as [phone] [address] 2021-09-02 2021-09-02 Outpatient R FLORENCE, [facility] [id number] Univers 14:00:00 14:00:00 CAPRICE ity of [facility] 2021-08-31 2021-08-31 Orders Doctor OLGUIN 1.2.840.114 [id number] Univers 00:00:00 00:00:00 Only Unassigned, GRAYSON 350.1.13.10 [facility] 4.2.7.2.686 Emanuel as [phone] [address] 2021-08-26 2021-08-26 Outpatient R NISA, [facility] [id number] Univers 10:45:00 11:58:51 WONDIFUL ity o f [facility] 2021-08-26 2021-08-26 Outpatient R NISA [facility] [id number] Univers 10:45:00 11:58:51 WONDIFUL ity o f [facility] 2021-08-26 2021-08-26 Outpatient R NISA, [facility] [id number] Univers 10:45:00 11:58:51 WONDIFUL ity o f [facility] 2021-08-26 2021-08-26 Outpatient R NISA [facility] [id number] Univers 10:45:00 11:58:51 WONDIFUL ity o [facility] 2021-08-26 2021-08-[address] [facility] 1.2.840.114 [id number] Univers 10:34:47 11:58:51 Visit Wondiful A HEALTH 350.1.13.10 ity of [place] 4.2.7.2.686 Emanuel as JOLLY?BLEA [id number] [address] MEDICAL OFFICE BUILDING 2021-08-17 2021-08-[address] [facility] 1.2.840.114 [id number] Univers 00:00:00 00:00:00 Management Wondiful A HEALTH 350.1.13.10 ity of [facility] 4.2.7.2.686 Emanuel as JOLLY?BLEA [phone] [address] MEDICAL OFFICE BUILDING 2021-08-13 2021-08-13 Outpatient R NISA [facility] [id number] Univers 07:58:20 23:59:00 WONDIFUL ity o f [facility] 2021-08-13 2021-08-13 Hospital Nisa [facility] 1.2.816.974 [id number] Univers 07:58:20 23:59:00 Encounter Wondiful A [place] 350.1.13.10 ity [facility] 4.2.7.2.686 [facility] [phone] [facility] [address] 2021-08-13 2021-08-13 Outpatient R NISA [facility] [id number] Univers 07:58:20 23:59:00 WONDIFUL ity o f [facility] 2021-08-13 2021-08-13 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 10 ity [facility] 4.2.7.2.686 [facility] [phone] Il dical [facility] [address] [facility] 2021-08-13 2021-08-13 Outpatient R NISA [facility] [id number] Univers 00:00:00 00:00:00 WONDIFUL ity o f [facility] 2021-08-04 2021-08-04 Outpatient R NISA [facility] [id number] Univers 15:30:00 15:42:52 WONDIFUL ity o f [facility] 2021-08-04 2021-08-04 Outpatient R NISA [facility] [id number] Univers 15:30:00 15:42:52 WONDIFUL ity o f [facility] 2021-08-04 2021-08-04 Outpatient R NISA [facility] [id number] Univers 15:30:00 15:42:52 WONDIFUL ity o f [facility] 2021-08-04 2021-08-04 Outpatient R NISA [facility] [id number] Univers 15:30:00 15:42:52 WONDIFUL ity o f [facility] 2021-08-04 2021-08-04 [facility] [id number] Univers 15:30:00 15:42:52 WONDIFUL ity o [facility] 2021-08-04 2021-08-[address] [facility] 1.2.840.114 [id number] Univers 14:30:05 15:42:52 Visit Wondiful A [facility] [address] [facility] 4.2.7.2.686 Emanuel as JOLLY?BLEA [phone] [address] MEDICAL OFFICE BUILDING 2021-08-04 2021-08-04 [facility] [id number] Univers 15:30:00 15:30:00 WONDIFUL itjay o [facility] 2021-08-03 2021-08-03 Pre Visit CLAU Edmondson 1.2.840.114 [id number] Univers 00:00:00 00:00:00 Outreach Jorge GALICIA 350.1.13.10 i [facility] 4.2.7.2.686 Emanuel as [phone] [place] 033462 Branch 2021-07-15 2021-07-15 Outpatient [facility] [id number] Univers 14:20:00 14:20:00 SHORTY ity [facility] 2021-07-15 2021-07-15 [facility] [id number] Univers 14:20:00 14:20:00 SHORTY y [facility] 2021-07-15 2021-07-15 Out[facility] [id number] Univers 14:20:00 14:20:00 SHORTY y [facility] 2021-07-15 2021-07-15 Outpatient [facility] [id number] Univers 14:20:00 14:20:00 [facility] 2021-07-14 2021-07-[address] [facility] 1.2.840.114 [id number] Univers 00:00:00 00:00:00 Wondiful A Health 350.1.13.10 ity of [place] 4.2.7.2.686 Emanuel as Professio [phone] Il dicma nal [address] One 2021-07-10 2021-07-10 Outpatient Kautz_S DMG DMG [id number] Devoted 05:13:00 05:13:00 1015 Medica l [facility] 2021-07-02 2021-07-02 Reffranchesca Paula [facility] 1.2.840.114 [id number] Univers 00:00:00 00:00:00 Wondiful A Health 350.1.13.10 ity of [place] 4.2.7.2.686 Emanuel as Professio [phone] [address] One 2021-06-15 2021-06-15 Orders Doctor CLAU 1.2.840.114 [id number] Univers 00:00:00 00:00:00 Only Unassigned, GRAYSON 350.1.13.10 ity of [place] [facility] 4.2.7.2.686 Emanuel as [phone] [facility] [address] 2021-06-08 2021-06-08 Patient Grupo Garcia 1.2.840.114 [id number] Univers 00:00:00 00:00:00 Outreach Emily Siny 350.1.13.10 ity of [place]2.7.2.686 [place] [phone] [facility] [address] 2021-06-08 2021-06-08 RefVik Hall [facility] 1.2.840.114 [id number] Univers 00:00:00 00:00:00 Health 350.1.13.10 it y of [place].2.686 [place] [phone] [address] Office Building 2021-05-25 2021-05-[address] [facility] ERT [id number] Univers 18:22:00 20:23:00 LAUREEN ity [facility] 2021-05-25 2021-05-[address] [facility] ERT [id number] Univers 18:22:00 20:23:00 [facility] ity [facility] 2021-05-25 2021-05-25 Emergency X DREVER, [facility] ERT [id number] Univers 18:22:00 20:23:00 LAUREEN ity of [facility] 2021-05-25 2021-05-25 Emergency X DREVER, [facility] ERT [id number] Univers 18:22:00 20:23:00 LAUREEN ity of [facility] 2021-05-25 2021-05-25 Emergency X DREVER, [facility] ERT [id number] Univers 18:22:00 20:23:00 LAUREEN ity of [facility] 2021-05-25 2021-05-25 Emergency Drever, [facility] 1.2.718.672 [id number] Univers 18:22:00 20:23:00 Laureen Truong [place] 350.1.13.10 ity of [place] 4.2.7.2.686 [place] [phone] [address] 2021-05-21 2021-05-21 Outpatient R LAILA ORELLANA [facility] [id number] Univers 09:30:00 09:30:00 LAILA ORELLANA [facility] 2021-05-19 2021-05-[address] [facility] 1.2.840.114 [id number] Univers 00:00:00 00:00:00 [facility] 350.1.13.10 ity [facility] 4.2.7.2.686 [facility] [phone] Il dic[address] Office Building One 2021-05-14 2021-05-14 Outpatient R SANJAY SÁNCHEZ [facility] [id number] Univers 09:00:00 09:00:00 ity of [facility] 2021-05-09 2021-05-09 Outpatient DMDionne CARLSON [id number] Devoted 11:00:00 11:00:00 0814 Medica l Group 2021-05-08 2021-05-08 Outpatient Brock HENRIQUEZ [facility] [id number] Univers 07:37:21 23:59:00 CAPRICE ity of [facility] 2021-05-08 2021-05-08 Outpatient Brock HENRIQUEZ [facility] [id number] Univers 07:37:21 23:59:00 CAPRICE itjay [facility] 2021-05-08 2021-05-08 Outpatient R HENRIQUEZ, [facility] [id number] Univers 07:37:21 23:59:00 CAPRICE flores [facility] 2021-05-08 2021-05-08 Outpatient R FLORENCE [facility] [id number] Univers 07:37:21 23:59:00 CAPRICE flores [facility] 2021-05-08 2021-05-08 Outpatient R MOMO [facility] [id number] Univers 08:15:00 08:15:00 ISAC itjay [facility] 2021-05-07 2021-05-07 Outpatient DMG DMG [id number] Devoted 12:00:00 12:00:00 0812 Medica l Group 2021-04-27 2021-04-[address] [facility] 1.2.840.114 [id number] Univers 00:00:00 00:00:00 [facility] 350.1.13.10 it y of [place] 4.2.7.2.686 Emanuel as PROFESSIO [phone] Il dical [address] OFFICE BUILDING ONE 2021-04-21 2021-04-21 Outpatient R NISA [facility] [id number] Univers 15:45:00 15:45:00 WONDIFUL ity o f [facility] 2021-04-07 2021-04-07 Outpatient R OSMAR [facility] [id number] Univers 09:20:00 09:20:00 RD phillipsjay [facility] 2021-04-02 2021-04-02 Outpatient R MOMO [facility] [id number] Univers 08:45:00 08:45:00 ISAC jay [facility] 2021-04-01 2021-04-01 Emergency X NINO [facility] ERT [id number] Univers 13:00:00 15:36:00 DESTINY flores [facility] 2021-04-01 2021-04-01 Emergency X NINO [facility] ERT [id number] Univers 13:00:00 15:36:00 DESTINY flores [facility] 2021-04-01 2021-04-01 Emergency X ONEILL, [facility] ERT [id number] Univers 13:00:00 15:36:00 DESTINY flores [facility] 2021-04-01 2021-04-01 Outpatient R [facility] [id number] Univers 08:45:00 08:45:00 ity [facility] 2021-03-28 2021-03-28 Outpatient R BELLA, [facility] [id number] Univers 09:40:00 09:40:00 CHELA flores o f [facility] 2021-03-27 2021-03-27 Outpatient R MARY JANE, [facility] [id number] Univers 09:30:00 09:30:00 MATEO jay [facility] 2021-03-26 2021-03-26 Outpatient R MOMO, [facility] [id number] Univers 15:15:00 15:15:[address] [facility] [place] [place] 2021-03-25 2021-03-25 Outpatient R JAYMIE, [facility] [id number] Univers 08:30:00 08:30:[address] [facility] [place] [place] 2021-03-23 2021-03-23 Outpatient R STEFFANIE, [facility] [id number] Univers 08:00:00 08:00:00 EMERY flores o f [facility] 2021-03-20 2021-03-20 Emergency X STEPHEN, K [facility] ERT [id number] Univers 19:09:00 19:47:00 ity [facility] 2021-03-20 2021-03-20 Emergency X STEPHEN, K [facility] ERT [id number] Univers 19:09:00 19:47:00 ity [facility] 2021-03-20 2021-03-20 Emergency X STEPHEN, K [facility] ERT [id number] Univers 19:09:00 19:47:00 ity [facility] 2021-03-18 2021-03-18 Outpatient R FLORENCE, [facility] NUT [id number] Univers 00:00:00 00:00:00 CAPRICE jay [facility] 2021-03-12 2021-03-12 Outpatient Brock BARR, [facility] [id number] Univers 08:30:00 08:30:00 ISAC itjay [facility] 2021-03-11 2021-03-11 Outpatient Brock BARR [facility] [id number] Univers 16:15:00 16:15:00 ISAC jay [facility] 2021-03-10 2021-03-[address] [facility] [id number] Univers 00:00:00 00:00:00 [facility] [id number] it y of [place] [id number] [facility] [place] [phone] [place] [id number] Branch OFFICE BUILDING 2021-02-25 2021-02-25 Outpatient Brock BARR [facility] [id number] Univers 14:30:00 14:30:00 [facility] 2021-02-25 2021-02-[address] [facility] [id number] 00:00:00 00:00:00 [place] Kaley [place] [id number] [place] [id number] [facility] [phone] nal 9 Building 2021-02-24 2021-02-24 Outpatient R NISA [facility] [id number] Univers 11:00:00 11:00:00 WONDIFUL ity o f [facility] 2021-02-19 2021-02-19 Outpatient R FLORENCE [facility] [id number] Univers 10:03:49 23:59:00 CAPRICE itjay [facility] 2021-02-19 2021-02-19 Outpatient R FLORENCE [facility] [id number] Univers 00:00:00 00:00:00 CAPRICE ity [facility] 2021-02-17 2021-02-17 Outpatient R [facility] [id number] Univers 17:40:00 17:40:00 ity [facility] 2021-02-17 2021-02-17 Outpatient R JONA [facility] [id number] Univers 17:40:00 17:17:33 ROGE ity [facility] 2021-02-17 2021-02-17 Outpatient R JONA [facility] [id number] Univers 17:40:00 17:17:33 [facility] 2021-02-17 Outpatient R JONA [facility] [id number] Univers 17:40:00 17:17:[address] [facility] [place] [place] 2021-02-10 2021-02-10 Outpatient R ATUL [facility] [id number] Univers 09:00:00 09:00:00 [facility] 2021-02-09 2021-02-09 Outpatient Brock BARR [facility] [id number] Univers 14:45:00 14:45:00 [facility] 2021-02-09 2021-02-09 Outpatient Brock BARR [facility] [id number] Univers 14:45:00 14:45:00 [facility] 2021-02-04 2021-02-04 Outpatient R SOTO HERMILANMBernadette [facility] [id number] Univers 10:30:00 10:30:00 [facility] [place] [place] 2021-02-03 2021-02-03 Outpatient R NISA [facility] [id number] Univers 16:30:00 16:30:00 WONDIFUL ity o f [facility] 2021-01-27 2021-01-27 Outpatient NAV GIANG [facility] [id number] Univers 15:00:00 15:00:[address] [facility] [place] [place] 2021-01-21 2021-01-21 Outpatient R ATUL [facility] [id number] Univers 11:00:00 11:00:[address] [facility] [place] [place] 2021-01-20 2021-01-20 Outpatient R SANJAY SÁNCHEZ [facility] [id number] Univers 11:00:00 11:00:[address] [facility] [place] [place] 2021-01-14 2021-01-14 Outpatient Brock JOLLY [facility] [id number] Univers 10:45:00 10:45:[address] [facility] [place] [place] 2021-01-08 2021-01-08 Outpatient R MOMO, [facility] [id number] Univers 08:45:00 08:45:00 [facility] 2021-01-06 2021-01-06 Outpatient R AIMEE, [facility] [id number] Univers 11:00:00 11:00:00 SHORTY ity o f [facility] 2021-01-01 2021-01-01 Outpatient R NISA, [facility] [id number] Univers 15:00:00 15:00:00 WONDIFUL ity o f [facility] 2021-01-01 2021-01-01 Outpatient R NISA, [facility] [id number] Univers 15:00:00 15:00:00 WONDIFUL ity o f [facility] 2021-01-01 2021-01-01 Outpatient R NISA, [facility] [id number] Univers 15:00:00 15:00:00 WONDIFUL ity o f [facility] 2021-01-01 2021-01-01 Outpatient R NISA, [facility] [id number] Univers 15:00:00 15:00:00 WONDIFUL ity o f [facility] 2020-12-13 2020-12-13 Outpatient [facility] [id number] Univers 08:25:00 [facility] 2020-12-13 2020-12-13 Outpatient R BELGICA, [facility] [id number] Univers 08:25:00 08:25:[address] [facility] [place] [place] 2020-12-13 2020-12-13 Outpatient R BELGICA, [facility] [id number] Univers 08:25:00 08:25:00 TAMMY y [facility] 2020-12-13 2020-12-13 Outpatient R BELGICA, [facility] [id number] Univers 08:25:00 08:25:[address] [facility] [place] [place] 2020-12-02 2020-12-02 Outpatient R JAKE, [facility] [id number] Univers 09:00:00 09:00:[address] [facility] [place] [place] 2020-12-02 2020-12-02 Outpatient R JAKE, [facility] [id number] Univers 09:00:00 09:00:00 [facility] 2020-12-02 2020-12-02 Outpatient R JAKE, [facility] [id number] Univers 09:00:00 09:00:00 LIANA ity [facility] 2020-12-02 2020-12-02 Outpatient R JAKE, [facility] [id number] Univers 09:00:00 09:00:00 [facility] 2020-11-22 2020-11-22 Outpatient R BELGICA, [facility] [id number] Univers 09:40:00 09:40:[address] [facility] [place] [place] 2020-11-22 2020-11-22 Outpatient R BELGICA, [facility] [id number] Univers 09:40:00 09:40:[address] [facility] [place] [place] 2020-11-22 2020-11-22 Outpatient R BELGICA [facility] [id number] Univers 09:40:00 09:40:00 [facility] 2020-11-21 2020-11-21 Outpatient R DONOVAN [facility] [id number] Univers 14:00:00 14:00:[address] [facility] [place] [place] 2020-11-20 2020-11-20 Outpatient R LAILA ORELLANA [facility] [id number] Univers 15:00:00 15:00:00 LAILA ORELLANA [facility] 2020-11-09 2020-11-09 Outpatient R OSMAR [facility] [id number] Univers 08:20:00 08:20:00 [facility] 2020-11-09 2020-11-09 Outpatient R OSMAR [facility] [id number] Univers 08:20:00 08:20:00 [facility] 2020-11-09 2020-11-09 Outpatient R OSMAR [facility] [id number] Univers 08:20:00 08:20:00 [facility] 2020-11-07 2020-11-07 Outpatient R VIK OLIVEIRA [facility] [id number] Univers 11:30:00 11:30:00 ity [facility] 2020-11-06 2020-11-06 Outpatient R NISA, [facility] [id number] Univers 08:15:00 08:15:00 WONDIFUL ity o f [facility] 2020-10-16 2020-10-16 Outpatient R OSMAR [facility] [id number] Univers 18:00:00 18:00:00 RD jay [facility] 2020-10-02 2020-10-02 Outpatient R MOMO, [facility] [id number] Univers 10:15:00 10:15:[address] [facility] [place] [place] 2020-09-22 2020-09-22 Outpatient R STEFFANIE, [facility] [id number] Univers 08:00:00 08:00:00 EMERY ity o f [facility] 2020-09-15 2020-09-15 Outpatient R NISA, [facility] [id number] Univers 00:00:00 00:00:00 WONDIFUL ity o f [facility] 2020-09-15 2020-09-15 Outpatient R NISA [facility] [id number] Univers 00:00:00 00:00:00 WONDIFUL ity o f [facility] 2020-09-14 2020-09-14 Outpatient R JONA, [facility] [id number] Univers 08:40:00 08:40:[address] [facility] [place] [place] 2020 2020 Outpatient R NISA, [facility] [id number] Univers 00:00:00 00:00:00 WONDIFUL ity o f [facility] 2020-09-10 2020-09-10 Outpatient R DUCKWORTH, [facility] [id number] Univers 08:00:00 08:00:00 SHANTI y [facility] 2020-09-08 2020-09-08 Outpatient R STEFFANIE, [facility] [id number] Univers 08:00:00 08:00:00 EMERY ity o f [facility] 2020-09-04 2020-09-04 Outpatient R NISA, [facility] [id number] Univers 16:00:00 16:00:00 WONDIFUL ity o f [facility] 2020-08-25 2020-08-25 Outpatient R NISA, [facility] [id number] Univers 11:00:00 11:13:03 WONDIFUL ity o f [facility] 2020-08-25 2020-08-25 Outpatient R NISA, [facility] [id number] Univers 10:30:00 10:30:00 WONDIFUL ity o f [facility] 2020-08-06 2020-08-06 Outpatient R PATRICIO, [facility] [id number] Univers 10:20:00 10:20:00 BALJIT flores [facility] 2020-08-06 2020-08-06 Outpatient R PATRICIO [facility] [id number] Univers 09:00:00 09:00:00 BALJIT flores [facility] 2020-08-01 2020-08-01 Outpatient R MARY JANE, [facility] [id number] Univers 10:00:00 10:00:00 MATEO mark [facility] 2020-07-18 2020-07-18 Outpatient R LAILA ORELLANA [facility] [id number] Univers 11:00:00 11:00:00 LAILA ORELLANA i jonas [facility] 2020-07-17 2020-07-17 Outpatient R VIK OLIVEIRA [facility] [id number] Univers 12:00:00 12:00:00 mark [facility] 2020-07-14 2020-07-14 Outpatient R NISA, [facility] [id number] Univers 10:45:00 10:45:00 WONDIFUL ity o f [facility] 2020-07-07 2020-07-07 Outpatient R MAKSIM, [facility] [id number] Univers 08:30:00 08:30:00 AUBRIE flores [facility] 2020-06-27 2020-06-27 Outpatient R NISA, [facility] [id number] Univers 15:15:00 15:15:00 WONDIFUL ity o f [facility] 2020-06-12 2020-06-12 Outpatient R MAKSIM, [facility] [id number] Univers 15:45:00 15:45:00 AUBRIE flores [facility] 2020-06-05 2020-06-05 Outpatient R MOMO [facility] [id number] Univers 10:30:00 10:30:00 [facility] 2020-06-03 2020-06-03 Outpatient R ATUL [facility] [id number] Univers 09:00:00 09:00:00 SENDIL ity [facility] 2020-05-16 2020-05-16 Outpatient R VIK OLIVEIRA [facility] [id number] Univers 16:30:00 16:30:00 ity [facility] 2020-05-09 2020-05-09 Outpatient R [facility] [id number] Univers 10:20:00 10:20:00 ity [facility] 2020-04-21 2020-04-21 [facility] [id number] Univers 11:40:00 11:40:[address] [facility] [place] [place] 2020-04-18 2020-04-18 [facility] [id number] Univers 09:30:00 09:30:[address] [facility] [place] [place] 2020-04-15 2020-04-15 Outpatient R [facility] [id number] Univers 10:20:00 10:20:00 ity [facility] 2020-04-04 2020-04-04 Outpatient R [facility] [id number] Univers 10:00:00 10:00:00 ity [facility] 2020-04-01 2020-04-01 Outpatient R [facility] [id number] Univers 08:00:00 08:00:00 ity [facility] 2020-03-20 2020-03-20 Outpatient R ROMARIO, [facility] [id number] Univers 10:00:00 10:00:[address] [facility] [place] [place] 2020-03-10 2020-03-10 Outpatient R MIKAYLA [facility] [id number] Univers 08:45:00 08:45:[address] [facility] [place] [place] 2020-03-03 2020-03-03 Outpatient R MAKSIM, [facility] [id number] Univers 08:00:00 08:00:[address] [facility] [place] [place] 2020-01-22 2020-01-22 [facility] [id number] Univers 15:45:00 15:45:00 ISAC ity [facility] 2020-01-22 2020-01-22 Outpatient R MOMO [facility] [id number] Univers 10:45:00 10:45:00 ISAC ity [facility] 2020-01-18 2020-01-18 Outpatient R SANJAY SÁNCHEZ [facility] [id number] Univers 11:30:00 11:30:00 ity of [facility] 2020-01-11 2020-01-11 Outpatient R LAILA ORELLANA [facility] [id number] Univers 11:00:00 11:00:00 LAILA ORELLANA i ty [facility] 2020-01-10 2020-01-10 [facility] [id number] Univers 10:00:00 10:00:00 WONDIFUL ity o f [facility] 2020-01-04 2020-01-04 Outpatient R ROXANNEVIK [facility] [id number] Univers 11:30:00 11:30:00 ity [facility] 2020-01-01 2020-01-01 Outpatient R [facility] [id number] Univers 08:00:00 08:00:00 ity [facility] 2019-12-21 2019-12-21 Outpatient R NISA [facility] [id number] Univers 09:30:00 09:30:00 WONDIFUL ity o f [facility] 2019-12-06 2019-12-06 Outpatient R ROMARIO [facility] [id number] Univers 11:00:00 11:00:[address] [facility] [place] [place] 2019-11-30 2019-11-30 Outpatient R MOMO [facility] [id number] Univers 10:30:00 10:30:00 [facility] 2019-11-29 2019-11-29 Outpatient R MOMO [facility] [id number] Univers 08:15:00 08:15:00 [facility] 2019-11-23 2019-11-23 Outpatient R [facility] [id number] Univers 08:00:00 08:00:[address] [facility] [place] [place] Results Test Description Test Time Test Comments Results Result Comments Source THYROID STIMULATING HORMONE 2022-10-19 04:51:23 Test Item Value Reference Range Interpretation Comme nts TSH (test code = 4377757636) See_Comment Biotin has been reported to cause a negative bias , interpret results relativ e to patient's use of biotin. [Aut omated message] The system [employer] generated this result transmit tomy reference range: 0.45 - 4 .70 mIU/L. The reference range was not used to interpret this result as normal/abnormal . Lab Interpretation (test code = Normal 96710-4) [facility] [id number] 04:26:53 Test Item Value Reference Range Interpretation Comments FREE T4 (test code = See_Comment [Autom ated message] [id number]) The system [employer] generated this result transmitted ref erence range: 0.78 - 2 .20 ng/dL:. The ref erence range was not u sed to interpret this result as normal/abnor mal. Lab Interpretation (test Normal code = 31217-1) [facility]. METABOLIC PANEL ([id number])2022-10-18 23:04:17 Test Item Value Reference Range Interpretation Comments NA (test code = 141 mmol/L 135-145 1216976527) K (test code = 5.1 mmol/L 3.5-5.0 H 2910192851) CL (test code = 109 mmol/L 98-108 H 9143155791) CO2 TOTAL (test code = 21 mmol/L 23-31 L 9685489376) AGAP (test code = 2-16 3873991099) BUN (test code = 7 mg/dL 7-23 9922150851) GLUCOSE (test code = 104 mg/dL 70-110 1106042647) CREATININE (test code = 1.41 mg/dL 0.50-1.04 H 4900320528) TOTAL BILI (test code = 0.8 mg/dL 0.1-1.0 3962403464) CALCIUM (test code = 9.1 mg/dL 8.6-10.6 6569332113) T PROTEIN (test code = 7.5 g/dL 6.3-8.2 4477788818) ALBUMIN (test code = 5.0 g/dL 3.5-5.0 2026473854) ALK PHOS (test code = 139 U/L 34-122 H 5280404506) ALTv (test code = 28 U/L 5-35 1742-6) AST(SGOT) (test code = 34 U/L 13-40 1173545891) eGFR (test code = mL/min/1.73m2 7656871393) AREN (test code = AREN) Association of Glomerular Filtration Rate (GFR) and Staging of Kidney Disease* + --+ --+ ------+| GFR (mL/min/1.73 m2) ?| With Kidney Damage ?| ?Without Kidney Damage+ --------+ --------+ +| ?>90 ?| ?Stage one ?| ? Normal ?+ ---+ ---+ -------+| ?60-89 ?| ?Stage two ?| ? Decreased GFR ? + --+ --+ ------+| ?30-59 ?| ?Stage three ?| ? Stage three ? + --+ --+ ------+| ?15-29 ?| ?Stage four ? | ? Stage four ?+ ---+ ---+ -------+| ?<15 (or dialysis) ? ?| ?Stage five ? | ? Stage five ?+ ---+ ---+ -------+ *Each stage assumes the associated GFR level has been in effect for at least three months. ?Stages 1 to 5, with or without kidney disease, indicate chronic kidney disease. Notes: Determination of stages one and two (with eGFR >59mL/min/1.73 m2) requires estimation of kidney damage for at least three months as defined by structural or functional abnormalities of the kidney, manifested by either:Pathological abnormalities or Markers of kidney damage (including abnormalities in the composition of the blood or urine or abnormalities in imaging tests). Lab Interpretation Abnormal (test code = 89961-9) [id number] Test Item Value Reference Range Interpretation Comments LIPASE (test code = 3728142497) 97 U/L 0-220 Lab Interpretation (test code = Normal 78872-9) [facility] WITH [id number] 22:34:52 Test Item Value Reference Range Interpretation Comments WBC (test code = See_Comment L [Automated 6690-2) message] The sy stem which generated this result transmitted reference range : 4.30 - 11.10 10*3/?L. The reference range was not used to interpret this result as normal/abnormal . RBC (test code = See_Comment L [Automated 789-8) message] The sy stem which generated this result transmitted reference range : 3.93 - 5.25 10*6/?L. The reference range was not used to interpret this result as normal/abnormal . HGB (test code = 9.4 g/dL 11.6-15.0 L 718-7) HCT (test code = 29.2 % 35.7-45.2 L 4544-3) MCV (test code = 103.9 fL 80.6-95.5 H 787-2) MCH (test code = 33.5 pg 25.9-32.8 H 785-6) MCHC (test code = 32.2 g/dL 31.6-35.1 786-4) RDW-SD (test code = 76.8 fL 39.0-49.9 H 06416-9) RDW-CV (test code = 22.1 % 12.0-15.5 H 788-0) PLT (test code = See_Comment [Automated 777-3) message] The sy stem which generated this result transmitted reference range : 166 - 358 10*3/ ?L. The reference r stefanie was not used to interpret this result as normal/abnormal . MPV (test code = 12.4 fL 9.5-12.9 89670-0) NRBC/100 WBC (test See_Comment [Automat ed code = 0200059286) message] The system which generated this result transmitted reference range : 0.0 - 10.0 /100 WBCs. The refer ence range was not u sed to interpret th is result as normal/abnormal . NRBC x10^3 (test code See_Comment [Auto mated = 8350548302) message] The s ystem which generated this result transmitted reference range : 10*3/?L. The reference range was not used to interpret this result as normal/abnormal . GRAN MAT (NEUT) % 63.1 % (test code = 770-8) IMM GRAN % (test code 1.30 % = 2922490883) LYMPH % (test code = 26.3 % 736-9) MONO % (test code = 6.4 % 5905-5) EOS % (test code = 2.1 % 713-8) BASO % (test code = 0.8 % 706-2) GRAN MAT x10^3(ANC) 2.45 10*3/uL 1.88-7.09 (test code = 3014335527) IMM GRAN x10^3 (test 0.05 10*3/uL 0.00-0.06 code = 5989418087) LYMPH x10^3 (test code 1.02 10*3/uL 1.32-3.29 L = 731-0) MONO x10^3 (test code 0.25 10*3/uL 0.33-0.92 L = 742-7) EOS x10^3 (test code = 0.08 10*3/uL 0.03-0.39 711-2) BASO x10^3 (test code 0.03 10*3/uL 0.01-0.07 = 704-7) Lab Interpretation Abnormal (test code = 12518-8) [facility] [id number] 22:15:00 Test Item Value Reference Range Interpretation Comments POCT PREG (test code = 1605) NEgative On board controls acceptable with C pass Line (test code = 3574) POCT PREG LOT # (test code = 3575) [id number] POCT PREG TEST DATE (test code = 3576) Lab Interpretation (test code = Normal 67593-0) [facility] URINALYSIS, [id number] 16:16:00 Test Item Value Reference Range Interpretation Comments POCT U SP GRAV (test code 1.020 mg/dl 1.005-1.025 = 3255) POCT PH U (test code = 5.5 mg/dl 5-8 3254) POCT U LEUK EST (test negative Negative - Negative code = 3263) POCT U NIT (test code = positive Negative - Negative 3262) POCT U PROT (test code = Negative - Negative 3259) POCT U GLU (test code = Negative - Negative 3256) POCT U KETONE (test code trace Negative - Negative = 3258) POCT U UROBILI (test code 1.0 mg/dl 0.2-1 = 3260) POCT U BILI (test code = small Negative - Negative 3261) POCT U BLD (test code = negative Negative - Negative 3257) POCT U COLOR (test code = orange 3266) POCT U APPEAR (test code slightly cloudy = 3267) [facility] URINALYSIS, [id number] 16:16:00 Test Item Value Reference Range Interpretation Comments POCT U SP GRAV (test code 1.020 mg/dl 1.005-1.025 = 3255) POCT PH U (test code = 5.5 mg/dl 5-8 3254) POCT U LEUK EST (test negative Negative - Negative code = 3263) POCT U NIT (test code = positive Negative - Negative 3262) POCT U PROT (test code = Negative - Negative 3259) POCT U GLU (test code = Negative - Negative 3256) POCT U KETONE (test code trace Negative - Negative = 3258) POCT U UROBILI (test code 1.0 mg/dl 0.2-1 = 3260) POCT U BILI (test code = small Negative - Negative 3261) POCT U BLD (test code = negative Negative - Negative 3257) POCT U COLOR (test code = orange 3266) POCT U APPEAR (test code slightly cloudy = 3267) [facility] HEMOGLOBIN A1C [id number] 14:54:00 Test Item Value Reference Range Interpretation Comments POCT HBA1C (test code = 4548-4) 4.6 % 4-6 [facility] HEMOGLOBIN A1C [id number] 14:54:00 Test Item Value Reference Range Interpretation Comments POCT HBA1C (test code = 4548-4) 4.6 % 4-6 [facility] GLUCOSE (AUTOMATED)2022-03-02 13:11:54 Test Item Value Reference Range Interpretation Comments POCT GLU (test code = 1799964406) 137 mg/dL 70-110 H Lab Interpretation (test code = Abnormal 04736-1) [facility] GLUCOSE (AUTOMATED)2022-03-02 13:11:54 Test Item Value Reference Range Interpretation Comments POCT GLU (test code = 5085452039) 137 mg/dL 70-110 H Lab Interpretation (test code = Abnormal 66020-3) [facility] [id number] 12:59:00 Test Item Value Reference Range Interpretation Comments POCT Glu (age>30days) (test code = 137 mg/dL 70-110 A 3342) Lab Interpretation (test code = Abnormal 34017-2) [facility] [id number] 12:59:00 Test Item Value Reference Range Interpretation Comments POCT Glu (age>30days) (test code = 137 mg/dL 70-110 A 3342) Lab Interpretation (test code = Abnormal 10986-3) [facility] [id number] 12:48:00 Test Item Value Reference Range Interpretation Comments POCT PREG (test code = 1605) Negative On board controls acceptable with Yes C Line (test code = 3574) POCT PREG LOT # (test code = 3575) [id number] POCT PREG TEST DATE (test 2023-06-25 code = 3576) [facility] [id number] 12:48:00 Test Item Value Reference Range Interpretation Comments POCT PREG (test code = 1605) Negative On board controls acceptable with Yes C Line (test code = 3574) POCT PREG LOT # (test code = 3575) [id number] POCT PREG TEST DATE (test 2023-06-25 code = 3576) [facility]"
[2022-10-22 00:14] LABS: Absolute Lymphocytes (CBC) 0.7 K/uL (0.7-4.9); MCV 102.2 fL (80-100); MPV 9.6 fL (7.6-11.3); RBC Red Blood Cell Count 1.49 M/uL (3.86-4.86)
[2022-10-22 00:16] LABS: Hematocrit 15.2 % (36.0-45.0)
[2022-10-22 00:28] LABS: Bilirubin Total 2.5 mg/dL (0.2-1.0); Potassium 3.5 mmol/L (3.5-5.1)
--- NOTE | 2022-10-22 00:31 | EDPHYS ---
Physician Documentation [facility] Name: Linda Rahman Age: 47 yrs Sex: Female : 1975 Arrival Date: 10/21/2022 Time: 23:26 Bed 5 Private MD: ED Physician Pavan Heller HPI: 10/21 23:41 This 47 yrs old Female presents to ER via EMS with complaints of abd pain, bs3 nausea. 23:41 47-year-old female history of anemia, asthma, anxiety, diabetes, hypertension, chronic bs3 abdominal pain multiple allergies presents with persistent symptoms she notes acute on chronic abdominal pain nausea vomiting inability to tolerate oral intake for several years now most recently she was seen here several days ago discharged after a work-up was nondiagnostic she went to [place] and had a CT done which was negative and since then she has been unable to tolerate oral intake and came in today she tried her Prilosec without relief she notes a diffuse pain that is unchanged. 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 - Social history:: Smoking status: Patient denies any tobacco usage or history of. ROS: 23:41 Constitutional: Negative for fever, chills Eyes: Negative for injury, pain, redness, bs3 and discharge, ENT: Negative for injury, pain, and discharge, Neck: Negative for injury, pain, and swelling, Cardiovascular: no chest pain 23:41 All other systems are negative. Exam: 23:41 Constitutional: appears chroniclly ill, well developed, appears comfortable but bs3 frustrated Head/Face: Normocephalic, atraumatic. Eyes: Pupils equal round and reactive to light, extra-ocular motions intact. Lids and lashes normal. ENT: poor dentition, dry mm Chest/axilla: Normal chest wall appearance and motion. Nontender with no deformity. No lesions are appreciated. Cardiovascular: tachycardic, no murmur Respiratory: Lungs have equal breath sounds bilaterally, clear to auscultation, no respiratory distress Abdomen/GI: Soft, non-tender, no rebound or guarding Skin: Warm, dry with normal turgor. Normal color with no rashes, no lesions, and no evidence of cellulitis. MS/ Extremity: Pulses equal, no cyanosis. Neurovascular intact. Full, normal range of motion. Neuro: Awake and alert, GCS 15, oriented to person, place, time, and situation. Cranial nerves II-XII grossly intact. Motor strength 5/5 in all extremities. Sensory grossly intact. Psych: Awake, alert, with orientation to person, place and time. Behavior, mood, and affect are within normal limits. 10/22 01:12 sinus tach 103, no st elevation or depression qtc 500 bs3 Vital Signs: 10/21 23:28 BP 102 / 66; Pulse 110; Resp 12; Temp 98.2; Pulse Ox 100% ; Weight 98.88 kg; Height 5 vc1 ft. 2 in. (157.48 cm); Pain 9/10; 10/22 01:08 BP 103 / 64; Pulse 103; Resp 18; Pulse Ox 100% on R/A; ll3 02:15 BP 107 / 64; Pulse 106; Resp 16; Pulse Ox 99% on R/A; ll3 10/21 23:28 Body Mass Index 39.87 (98.88 kg, 157.48 cm) vc1 MDM: 10/21 23:27 Patient medically screened. bs3 23:41 Differential diagnosis: AAA, appendicitis, coronary artery disease, cholecystitis, bs3 Cholelithiasis, diverticulitis, gastritis, Irritable bowel syndrome, non-specific abd pain, pancreatitis. Data reviewed: vital signs, nurses notes, old medical records, recent ct here, negative for acute pathologu, pt with 3 ct scans this month, neg for acute pathology, +hepatosplenomegaly. 23:41 ED course: pt with acute on chronic abd pain, will check electroloytes, pt s/p jeffrey, bs3 doubt retained stone, possible gastroparesis, anxiety, doubt pancreatitis, doubt obstruction as pt had recent laxittives for constipation and is having sig diarrhea. Doubt acute infection. 10/22 00:28 ED course: pt found to have low hgb, sig decreased from prior, 2 unit prbc ordered, bs3 rectal negative for melena or brb, per pt hx of hemolytic anemia, will admit. . 00:28 Management of patient was discussed with the following: Hospitalist: hospitalist. [facility] 03:52 ED course: after admission, pt/family then requested transfer, attempted transfer to [address] but unable to accept d/t capacity, pt requested attempt for transfer to [facility], pt accepted by Dr. Wai Almanza at [facility]. 10/21 23:41 Order name: CBC with Diff; Complete Time: 01:12 3 10/21 23:41 Order name: CMP; Complete Time: 00:35 3 10/21 23:41 Order name: Lipase; Complete Time: 00:35 bs3 10/22 00:18 Order name: CBC Smear Scan; Complete Time: 01:12 EDMS 10/22 00:24 Order name: Type And Screen 3 10/22 00:24 Order name: LDH; Complete Time: 03:22 sb4 10/22 00:24 Order name: Fibrinogen; Complete Time: 03:22 sb4 10/22 00:24 Order name: B12; Complete Time: 03:22 sb4 10/22 00:27 Order name: Slides For Pathologist Review bs3 10/22 00:27 Order name: Type And Screen bs3 10/22 00:35 Order name: PT-INR 4 10/22 00:35 Order name: Ptt, Activated; Complete Time: 03:22 4 10/22 03:31 Interpretation: Within normal limits. 3 10/22 00:35 Order name: SARS RAPID; Complete Time: 03:22 sb4 10/21 23:41 Order name: IV Saline Lock; Complete Time: 23:53 bs3 10/21 23:41 Order name: Labs collected and sent; Complete Time: 23:53 bs3 10/21 23:47 Order name: EKG - Nurse/Tech; Complete Time: 00:16 bs3 10/22 00:27 Order name: Consent for Blood Transfusion bs3 10/22 00:27 Order name: IV Saline Lock; Complete Time: 03:10 bs3 10/22 01:34 Order name: Chest Single View XRAY sb4 10/22 03:06 Order name: Protime (+INR); Complete Time: 03:22 EDMS Administered Medications: 10/21 23:47 Drug: Ondansetron 4 mg Route: IVP; Site: right antecubital; kl 23:52 Drug: NS 0.9% 1000 ml Route: IV; Rate: 1 bolus; Site: right antecubital; kl 23:52 Drug: Pepcid (famotidine) 10 mg Route: IVP; Site: right antecubital; kl Disposition Summary: 10/22/22 04:14 Transfer Ordered Transfer Location: [facility] bs3 Reason: Higher level of care bs3 Condition: Stable(10/22/22 04:14) bs3 Problem: an acute exacerbation(10/22/22 04:14) bs3 Symptoms: have worsened(10/22/22 04:14) bs3 Accepting Physician: Brandee(10/22/22 04:42) mckenna Diagnosis - Anemia, unspecified(10/22/22 04:14) bs3 - Abdominal pain, Generalized(10/22/22 04:14) bs3 Forms: - Medication Reconciliation Form bs3 - SBAR form bs3 Critical care time excluding procedures: 10/22 00:28 Critical care time: Bedside Care: 36 minutes. Total time: 36 minutes bs3 Signatures: Dispatcher [employer] EDMS Lucila Wren RN RN kl Garcia, Cindy, RN RN cg Calcote, Vanessa, RN RN vc1 Pavan Heller MD MD bs3 Angie Brownlee PA-C PA-C sb4 Corrections: (The following items were deleted from the chart) 01:15 00:30 Telemetry/MedSurg (Inpatient) bs3 cg 01:15 00:30 bs3 cg 04:13 00:30 Inpatient Admission bs3 bs3 04:13 00:30 Paris Li bs3 bs3 04:13 00:30 Fair bs3 bs3 04:13 00:30 an acute exacerbation bs3 bs3 04:13 00:30 have worsened bs3 bs3 04:13 00:30 Standard bs3 bs3 04:13 00:30 Anemia, unspecified bs3 bs3 04:13 00:30 Abdominal pain, Generalized bs3 bs3 04:13 00:30 Dehydration bs3 bs3 04:13 01:15 [facility] ER HOLD cg bs3 04:13 01:15 ERHOLD- cg bs3 04:42 04:14 Brandee bs3 kl
--- NOTE | 2022-10-22 00:31 | ER ---
Nurse's Notes [facility] Name: Linda Rahman Age: 47 yrs Sex: Female : 1975 Arrival Date: 10/21/2022 Time: 23:26 Bed 5 Private MD: Diagnosis: Anemia, unspecified;Abdominal pain, Generalized Presentation: 10/21 23:28 Chief complaint: Patient states: "I haven't been able to keep anything down since I vc1 left here Tuesday. My GI doctor thinks I have IBS.". Coronavirus screen: Vaccine status: Patient reports receiving the 2nd dose of the covid vaccine. plus 2 boosters; General Assembly. Ebola Screen: No symptoms or risks identified at this time. Initial Sepsis Screen: Does the patient meet any 2 criteria? HR > 90 bpm. No. Patient's initial sepsis screen is negative. Does the patient have a suspected source of infection? Yes: Acute abdominal pain. Risk Assessment: Do you want to hurt yourself or someone else? Patient reports no desire to harm self or others. Onset of symptoms was October 15, 2022. 23:28 Method Of Arrival: EMS: [facility] vc1 23:28 Acuity: HOLLEY 3 vc1 Triage Assessment: 23:32 General: Appears in no apparent distress. uncomfortable, Behavior is calm, cooperative, vc1 appropriate for age. Pain: Complains of pain in abdomen Pain does not radiate. Pain currently is 9 out of 10 on a pain scale. Also complains of decreased appetite, nausea. EENT: No deficits noted. No signs and/or symptoms were reported regarding the EENT system. Neuro: Level of Consciousness is awake, alert, obeys commands, Oriented to person, place, time, situation, Appropriate for age. Cardiovascular: No deficits noted. Respiratory: Airway is patent Respiratory effort is even, unlabored, Respiratory pattern is regular, symmetrical. GI: Reports lower abdominal pain, upper abdominal pain, intolerance of fluids, intolerance of food, nausea, vomiting. : No deficits noted. Derm: No deficits noted. No signs and/or symptoms reported regarding the dermatologic system. Musculoskeletal: No deficits noted. No signs and/or symptoms reported regarding the musculoskeletal system. 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 - Social history:: Smoking status: Patient denies any tobacco usage or history of. Screenin:33 Abuse screen: Denies threats or abuse. Nutritional screening: No deficits noted. vc1 Tuberculosis screening: No symptoms or risk factors identified. 10/22 04:42 [facility] ED Fall Risk Assessment (Adult) History of falling in the last 3 months, kl including since admission No falls in past 3 months (0 pts) Confusion or Disorientation No (0 pts) Intoxicated or Sedated No (0 pts) Impaired Gait No (0 pts) Mobility Assist Device Used No (0 pt) Altered Elimination No (0 pt) Score/Fall Risk Level 0 - 2 = Low Risk Oriented to surroundings, Maintained a safe environment. Assessment: 00:30 Reassessment: blood order form faxed to lab and lab notified. bb 01:00 Reassessment: Patient appears in no apparent distress at this time. Patient and/or kl family updated on plan of care and expected duration. Pain level reassessed. Patient is alert, oriented x 3, equal unlabored respirations, skin warm/dry/pink. Patient states feeling better. 02:00 Reassessment: Patient and/or family updated on plan of care and expected duration. Pain kl level reassessed. Patient is alert, oriented x 3, equal unlabored respirations, skin warm/dry/pink. mother at bedside pt requesting transfer. 03:51 Reassessment: Patient and/or family updated on plan of care and expected duration. Pain kl level reassessed. Patient is alert, oriented x 3, equal unlabored respirations, skin warm/dry/pink. [facility] refused patient transfer pt to be transferred to [facility] for higher level of care family. Vital Signs: 10/21 23:28 BP 102 / 66; Pulse 110; Resp 12; Temp 98.2; Pulse Ox 100% ; Weight 98.88 kg; Height 5 vc1 ft. 2 in. (157.48 cm); Pain 9/10; 10/22 01:08 BP 103 / 64; Pulse 103; Resp 18; Pulse Ox 100% on R/A; ll3 02:15 BP 107 / 64; Pulse 106; Resp 16; Pulse Ox 99% on R/A; ll3 10/21 23:28 Body Mass Index 39.87 (98.88 kg, 157.48 cm) vc1 ED Course: 10/21 23:26 Patient arrived in ED. ja2 23:27 Pavan Heller MD is Attending Physician. bs3 23:31 Triage completed. vc1 23:33 Arm band placed on right wrist. vc1 23:34 Patient has correct armband on for positive identification. Placed in gown. Bed in low vc1 position. Call light in reach. Client placed on continuous cardiac and pulse oximetry monitoring. NIBP monitoring applied. 23:53 CBC with Diff Sent. kl 23:53 Lipase Sent. kl 23:53 CMP Sent. kl 23:59 Inserted saline lock: 20 gauge in right antecubital area, using aseptic technique. oe Blood collected. 10/22 00:29 Paris Li MD is Hospitalizing Provider. bs3 01:09 SARS RAPID Sent. kl 01:09 Ptt, Activated Sent. kl 01:56 Initiated transfer to [facility], spoke with Jennifer. wm 02:28 [facility] denied due to capacity. wm 02:38 Initiated transfer to [facility], spoke with Kandace. wm 03:38 Pt accepted for transfer by Dr. Hannon \\T\\ [id number] to [facility], per Kandace Quintana. wm 04:41 No provider procedures requiring assistance completed. Patient transferred, IV remains kl in place. Administered Medications: 10/21 23:47 Drug: Ondansetron 4 mg Route: IVP; Site: right antecubital; kl 23:52 Drug: NS 0.9% 1000 ml Route: IV; Rate: 1 bolus; Site: right antecubital; kl 23:52 Drug: Pepcid (famotidine) 10 mg Route: IVP; Site: right antecubital; kl Medication: 23:34 VIS not applicable for this client. vc1 Outcome: 10/22 00:30 Decision to Hospitalize by Provider. bs3 04:14 ER care complete, transfer ordered by . bs3 04:42 Transferred by ground EMS to [facility]. 04:42 Condition: stable 04:42 Discharge instructions given to patient, family, Instructed on the need for transfer. 04:42 Patient left the ED. kl Signatures: Lucila Wren, RN Chelsea Mora, RN RN Carlos Alberto Mares Wendy wm Alexander, Jessica ja2 Loubet, Lynsea RN RN ll3 Amber Leiva RN RN vc1 Pavan Heller MD MD bs3
[2022-10-22 00:47] LABS: Anisocytosis 3+; Blood Morphology Comment NOTED (NOT SEEN); Hypochromasia 1+; Macrocytosis 1+; Platelet Estimate DECR; Polychromasia 1+; White Blood Cell Scan OK (OK)
[2022-10-22 00:48] LABS: Ovalocytes 2+
[2022-10-22 00:50] LABS: Stomatocytes 1+; Teardrop Cell 1+
--- NOTE | 2022-10-22 01:26 | P.HP ---
Certification for Inpatient Patient admitted to: Inpatient With expected LOS: >2 Midnights Patient will require the following post-hospital care: None Practitioner: I am a practitioner with admitting privileges, knowledge of patient current condition, hospital course, and medical plan of care. Services: Services provided to patient in accordance with Admission requirements found in Title 42 Section 412.3 of the Code of Federal Regulations Patient History Date of Service: 10/22/22 Reason for admission: Anemia History of Present Illness: Patient is a 47 year old female with past medical history of pernicious anemia, asthma, hypothyroidism, type 2 diabetes, and learning disability who presented to the emergency department with complaints of nausea, vomiting, and abdominal pain. Patient was recently hospitalized at [facility] and had several of her medications discontinued. Her labs today are significant for hemoglobin 5.1, hematocrit 15, tbili 2.5, incidentally COVID positive. Rectal exam revealed soft, brown stool. she denies hematemesis. Patient is admitted for further management. Allergies amoxicillin [Amoxicillin] Allergy (Mild, Verified 08/14/17 10:28) Hives meperidine HCl [From Demerol] Allergy (Verified 08/14/17 10:28) Anaphylaxis ziprasidone HCl [From Geodon] Allergy (Verified 08/14/17 10:28) Anaphylaxis meclizine Adverse Reaction (Intermediate, Verified 08/14/17 10:28) Anaphylaxis diphenhydramine [From Benadryl] Adverse Reaction (Verified 08/14/17 10:28) Anaphylaxis lorazepam Adverse Reaction (Verified 08/14/17 10:28) Anaphylaxis ziprasidone mesylate [From Geodon] Adverse Reaction (Verified 08/14/17 10:28) Anaphylaxis Amoxicillin Allergy (Uncoded 08/14/17 10:28) Anaphylaxis Tessalon Allergy (Uncoded 06/12/22 23:11) Hives Tessalon Adilene Adverse Reaction (Uncoded 08/14/17 10:28) Anaphylaxis Home medications list reviewed: Yes Home Medications: Amitriptyline [Elavil*] 100 mg PO BEDTIME 08/14/17 Citalopram Hydrobromide [Citalopram HBr] 40 mg PO DAILY 08/14/17 Levothyroxine [Synthroid*] 50 mcg PO [id number] 08/14/17 Cyclobenzaprine HCl [Flexeril] 5 mg PO Q8HR PRN 12/05/20 Pregabalin [Lyrica] 150 mg PO TID 12/05/20 Rosuvastatin [Crestor*] 10 mg PO BEDTIME 12/05/20 Albuterol Sulfate [Proair Digihaler] 2 puff IH Q6H PRN 08/17/21 Buspirone HCl 20 mg PO BID 08/17/21 Fluticasone [Flovent Hfa 110*] 2 sprays IH BID 08/17/21 Docusate Sodium 100 mg PO DAILY 01/14/22 Losartan Potassium 50 mg PO BID 01/14/22 Metformin ER [Glucophage ER*] 500 mg PO DAILY 01/14/22 Mirabegron [Myrbetriq] 50 mg PO DAILY 01/14/22 Pantoprazole [Protonix Tab*] 40 mg PO DAILY 01/14/22 Semaglutide [Ozempic] 0.25 mg SQ ONCE 01/14/22 Sucralfate [Carafate*] 1 gm PO ACHS 01/14/22 Ascorbate Calcium [Vitamin C] 500 mg PO DAILY 06/13/22 Buspirone HCl [Buspar] 2 tab PO BID 06/13/22 Ca/D3/Mag Ox/Zinc/Medical Office Technology Instructor/Chi/Bor [Calcium 600+D3 Plus Caplet] 1 each PO DAILY 06/13/22 Cholecalciferol (Vitamin D3) [Vitamin D3] 50 mcg PO DAILY 06/13/22 Cyanocobalamin [B12 Injection] 1,000 mcg IM SEECOM 06/13/22 Diltiazem HCl [Cartia Xt] 120 mg PO BID 06/13/22 Doxycycline Hyclate 100 mg PO BID 7 Days #14 tab 06/13/22 Folic Acid 0.8 mg PO DAILY 06/13/22 Magnesium Oxide [Magnesium] 500 mg PO DAILY 06/13/22 Topiramate 25 mg PO BID 06/13/22 - Past Medical/Surgical History Diabetic: Yes -: Chronic diastolic congestive heart failure -: pernicious anemia -: asthma -: major depression -: hypothyroidism -: anxiety -: neuropathy -: hypertension -: high cholesterol -: learning disability -: tachycardia -: sleep apnea -: cholecystecomy -: tubal ligation Psychosocial/ Personal History: Patient is on disability, lives at home with her significant other - Family History Mother -: Hypertension, Kidney disease Father -: Hypertension, Diabetes - Social History Smoking Status: Never smoker Alcohol use: Yes CD- Drugs: No Caffeine use: No Place of Residence: Home Review of Systems Gastrointestinal: Nausea, Vomiting, Abdominal Pain Physical Examination - Vital Signs Temperature: 98.2 F Blood Pressure: 103/64 Pulse: 103 Respirations: 18 Pulse Ox (%): 100 - Studies Laboratory Data (last 24 hrs) 10/21/22 23:50: Sodium 141, Potassium 3.5, BUN 19 H, Creatinine 1.12 H, Glucose 119 H, Total Bilirubin 2.5 H, AST 24, ALT 23, Alkaline Phosphatase 133 H, Lipase 114 10/21/22 23:50: WBC 4.50, Hgb 5.1 L*, Hct 15.2 L*, Plt Count 193 Assessment and Plan - Problems (Diagnosis) (1) Anemia Current Visit: Yes Status: Acute Qualifiers: 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 Qualified Code(s): D58.2 - Other hemoglobinopathies (2) Irritable bowel syndrome (IBS) Current Visit: Yes Status: Chronic Qualifiers: Irritable bowel syndrome type: unspecified Qualified Code(s): K58.9 - Irritable bowel syndrome without diarrhea (3) Asthma Current Visit: Yes Status: Chronic Qualifiers: Asthma severity: unspecified severity Asthma persistence: unspecified Asthma complication type: uncomplicated Qualified Code(s): J45.909 - Unspecified asthma, uncomplicated (4) Type 2 diabetes mellitus Current Visit: Yes Status: Chronic Qualifiers: Diabetes mellitus long term care social worker insulin use: without senior care use Diabetes mellitus complication status: with hyperglycemia Qualified Code(s): E11.65 - Type 2 diabetes mellitus with hyperglycemia (5) Hypothyroidism Current Visit: Yes Status: Chronic Qualifiers: Hypothyroidism type: acquired Qualified Code(s): E03.9 - Hypothyroidism, unspecified Discharge Plan: Home Plan to discharge in: Greater than 2 days - Advance Directives Does patient have a Living Will: No Does patient have a Durable POA for Healthcare: Yes - Code Status/Comfort Care Code Status Assessed: Yes Code Status: Full Code Physician Review: Patient Assessed, Agree with Above Assessment and Plan Critical Care: No Time Spent Managing Pts Care (In Minutes): 50
[2022-10-22 01:34] LABS: SARS-CoV-2 Antigen Rapid Res Positive (Negative)
[2022-10-22 03:06] LABS: Protime INR 1.06
[2022-10-22 04:50] VITALS: TEMP 98.2
[2022-10-22 04:53] VITALS: BP 107/64; O2SAT 99
--- NOTE | 2022-10-22 12:01 | RAD REPORT ---
EXAM DESCRIPTION: RAD - Chest Single View - 10/22/2022 1:48 am CLINICAL HISTORY: SOB COMPARISON: 08/25/2022 FINDINGS: Single frontal radiograph view of the chest. Cardiomediastinal silhouette: Normal size and contour. Lungs: Low lung volumes. Leads overlie the chest. No focal consolidation. No large effusion. No pneum othorax. Mild senescent interstitial opacities are stable. Bones: No acute osseous abnormality. Upper abdomen: No abnormality identified. IMPRESSION: 1. No acute pneumonic process identified. Low lung volumes. 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 The interpreting radiologist is fully responsible for the content of the report.
--- NOTE | 2022-10-22 13:15 | EKG ---
Test Date: 2022-10-22 Test Time: 00:07:55 Rubber Grinder: POLO MEASUREMENT RESULTS: Intervals: Rate: 103 ND: 188 QRSD: 120 QT: 382 QTc: 500 [place]: P: 72 ND: 188 QRS: -26 T: 101 INTERPRETIVE STATEMENTS: Sinus tachycardia Nonspecific intraventricular conduction delay T wave abnormality, consider lateral ischemia Abnormal ECG Compared to ECG 09/17/2022 07:19:50 Intraventricular conduction delay now present T-wave abnormality now present Possible ischemia now present Sinus rhythm no longer present Incomplete right bundle-branch block no longer present Left anterior fascicular block no longer present Prolonged QT interval no longer present Electronically Signed On 10-22-22 13:14:25 RESPIRATORY PHYSICIAN by Donnell Blanc
== END 2022-10-22 04:42 | disposition short-term general hospital (02) ==
LOC: ER 23:19 → ERHOLD 10-22 01:17 → UNDOADMIN 10-22 01:17
DX: D64.9 Anemia, unspecified (principal); R10.84 Generalized abdominal pain; U07.1 COVID-19; E11.9 Type 2 diabetes mellitus without complications; I10 Essential (primary) hypertension; Z88.1 Allergy status to other antibiotic agents; Z88.5 Allergy status to narcotic agent; Z88.8 Allergy status to other drugs, medicaments and biological substances
CPT/HCPCS: 93005; 85025; 36415 ×2; 86900; 85384; 86850; 83615; 85610; 86901; 85730; 82607; 83690; 80053; 71045; 96375; 96374; 99285; 87811; J7030; J2405

== ENCOUNTER 2022-10-30 03:12 | Emergency (ER) | payer OTHER ==
[2022-10-30] MEDS ORDERED: MAGNES/ALUMIN/SIMET 30ML UCUP ONE ×2 (03:57→03:59)
[2022-10-30] MEDS ORDERED: FAMOTIDINE 20 MG/2 ML VIAL IV ONE (03:58)
[2022-10-30] MEDS ORDERED: KETOROLAC 30 MG/ML INJ ONE (03:58)
[2022-10-30] MEDS ORDERED: ONDANSETRON 4 MG/2 ML VIAL ONE (03:58)
[2022-10-30] MEDS ORDERED: LIDOCAINE VISCOUS 2% SOLN 15 ML UDC ONE (03:59)
[2022-10-30 04:00] LABS: Absolute Lymphocytes (CBC) 0.8 K/uL (0.7-4.9); Hematocrit 26.2 % (36.0-45.0); Lymphocytes % 24.1 % (15.3-44.8); MCV 105.3 fL (80-100); MPV 10.4 fL (7.6-11.3); RBC Red Blood Cell Count 2.49 M/uL (3.86-4.86)
[2022-10-30 04:17] LABS: Anisocytosis 2+; Blood Morphology Comment NOTED (NOT SEEN); Macrocytosis 2+; Ovalocytes 2+; Platelet Estimate DECR; Polychromasia SLIGHT; Teardrop Cell 1+; White Blood Cell Scan OK (OK)
[2022-10-30 04:18] LABS: Albumin 3.8 g/dL (3.4-5.0); Bilirubin Total 0.7 mg/dL (0.2-1.0); Potassium 3.7 mmol/L (3.5-5.1); Protein, Total 6.5 g/dL (6.4-8.2)
[2022-10-30 04:21] LABS: Urine Bacteria <20 /HPF (<20); Urine Mucus Slight /HPF (None Seen); Urine RBC <5 /HPF (None Seen); Urine WBC Clump Rare /HPF (None Seen)
--- NOTE | 2022-10-30 04:50 | EDPHYS ---
Physician Documentation [facility] Name: Linda Rahman Age: 47 yrs Sex: Female : 1975 Arrival Date: 10/30/2022 Time: 03:15 Bed 7 Private MD: ALEXA Physician Rancho Garcia HPI: 10/30 03:50 Patient is a 47-year-old with history of chronic abdominal pain diabetes asthma jr11 hypertension, multiple visits for abdominal pain here with an exacerbation of abdominal pain that woke her from sleep. Patient took Tylenol with no resolution so they decided to come into the ER. Denies fevers chills no nausea no vomiting bowel movements normal per her. Denies dysuria no vaginal discharge no vaginal bleeding.. Historical: - Allergies: 03:28 Amoxicillin; pf1 03:28 Codeine; pf1 03:28 Demerol; pf1 03:28 Geodon; pf1 03:28 Meclizine; pf1 03:28 Tessalon Perles; pf1 - Home Meds: 03:32 pantoprazole oral [Active]; topiramate oral [Active]; Buspirone Oral [Active]; pf1 citalopram oral [Active]; Promethazine Oral [Active]; Zofran Oral [Active]; Dicyclomine Oral [Active]; Cartia XT 120 mg Oral cp24 [Active]; levothyroxine 50 mcg cap [Active]; - PMHx: 03:28 Anemia; Anxiety; depression; Asthma; diabetes mellitus; Hypertensive disorder; pf1 Hypothyroidism; Migraine; chronic abdominal pain; - PSHx: 03:28 Cholecystectomy; tubal ligation; pf1 - Immunization history:: Adult Immunizations up to date, Last tetanus immunization: < 5 years ago Flu vaccine is up to date. - Social history:: Smoking status: Patient denies any tobacco usage or history of. Patient/guardian denies using alcohol, street drugs. ROS: 03:50 All other systems are negative. jr11 Exam: 03:50 Constitutional: This is a well developed, well nourished patient who is awake, alert, jr11 and in no acute distress. Head/Face: Normocephalic, atraumatic. Eyes: Extra-ocular motions intact. Lids and lashes normal. Conjunctiva and sclera are non-icteric and not injected. Cornea within normal limits. Periorbital areas with no swelling, redness, or edema. ENT: Nares patent. No nasal discharge, no septal abnormalities noted. Oropharynx with no redness, swelling, or masses, exudates, or evidence of obstruction, uvula midline. Mucous membranes moist. Neck: Trachea midline, no thyromegaly or masses palpated, and no cervical lymphadenopathy. Supple, full range of motion without nuchal rigidity, or vertebral point tenderness. No Meningismus. Chest/axilla: Normal chest wall appearance and motion. Nontender with no deformity. No lesions are appreciated. Cardiovascular: Regular rate and rhythm with a normal S1 and S2. No gallops, murmurs, or rubs. Normal PMI, no JVD. No pulse deficits. Abdomen/GI: diffuse abd pain Back: No spinal tenderness. No costovertebral tenderness. Full range of motion. MS/ Extremity: Pulses equal, no cyanosis. Neurovascular intact. Full, normal range of motion. Neuro: Awake and alert, GCS 15, oriented to person, place, time, and situation. No gross motor or sensory deficits. Vital Signs: 03:23 BP 104 / 63; Pulse 95; Resp 18; Temp 97.9; Pulse Ox 100% on R/A; Weight 94.35 kg; pf1 Height 5 ft. 2 in. (157.48 cm); Pain 8/10; 04:12 BP 112 / 73; Pulse 91; Resp 18; Temp 98.7; Pulse Ox 94% ; Pain 6/10; ad6 04:56 BP 121 / 76; Pulse 89; Resp 19 S; Pulse Ox 96% on R/A; aa9 03:23 Body Mass Index 38.04 (94.35 kg, 157.48 cm) pf1 MDM: 03:22 Patient medically screened. jr11 03:50 Differential diagnosis: non-specific abd pain, Abdominal pain, patient states that jr11 there is no change in quality or quantity of the pain, patient was just not given medications per the father because her trying to minimize the amount of medicines that she is on. Patient otherwise states no change in quality or character, abdominal pain is diffuse, no peritonitis on my exam. We will get lab work if benign and she responds to symptomatic management, will refer her back to her GI doctor for which she has an appointment in a few weeks. Historians other than the Patient: Parent: father: pt only took tylenol today . 04:46 Data reviewed: vital signs, nurses notes. I considered the following discharge jr11 prescriptions or medication management in the emergency department Pain Medications: At this time, prescription pain medications are not recommended. Test considered but Not performed: CT: Pt with same pain as before comfortable trying meds for UTI, avoid repeat study. Care significantly affected by the following chronic conditions: Obesity. 10/30 03:22 Order name: CBC with Diff; Complete Time: 04:37 jr11 10/30 03:22 Order name: CMP; Complete Time: 04:37 jr11 10/30 03:22 Order name: Lipase; Complete Time: 04:37 jr11 10/30 03:22 Order name: Urine Microscopic Only; Complete Time: 04:37 jr11 10/30 04:03 Order name: CBC Smear Scan; Complete Time: 04:37 EDMS 10/30 04:25 Order name: Urine Culture EDMS 10/30 03:22 Order name: IV Saline Lock; Complete Time: 04:07 jr11 10/30 03:22 Order name: Labs collected and sent; Complete Time: 04:07 jr11 Administered Medications: 04:07 CANCELLED (Physician Discretion): GI Cocktail with - (Maalox Suspension 30 ml, pf1 Lidocaine Liquid 2 % 20 ml, Phenobarbital-Belladonna 10 ml) PO once 04:08 Drug: viscous lidocaine 2% 15ml PO once 15 ml Route: PO; pf1 04:48 Follow up: Response: No adverse reaction aa9 04:08 Drug: Maalox (aluminum hydroxide, magnesium hydroxide, simethicone) Suspension (200 pf1 mg-200 mg-20 mg/5 mL) 30 ml Route: PO; 04:48 Follow up: Response: No adverse reaction aa9 04:11 Drug: Pepcid (famotidine) 20 mg Route: IVP; Site: right antecubital; ad6 04:48 Follow up: Response: No adverse reaction aa9 04:11 Drug: TORadol - (ketorolac) 15 mg Route: IVP; Site: right antecubital; ad6 04:48 Follow up: Response: No adverse reaction aa9 04:11 Drug: Zofran (Ondansetron) 4 mg Route: IVP; Site: right antecubital; ad6 04:48 Follow up: Response: No adverse reaction aa9 04:55 Drug: Macrobid (nitrofurantoin) 100 mg Route: PO; aa9 04:57 Follow up: Response: No adverse reaction aa9 Disposition Summary: 10/30/22 04:49 Discharge Ordered Location: Home [facility] Condition: Stable jr11 Diagnosis - Abdominal tenderness jr11 - UTI/ Urinary tract infection, site not specified jr11 Discharge Instructions: - Discharge Summary Sheet jr11 - Abdominal Pain, Adult jr11 - Urinary Tract Infection, Adult jr11 Forms: - Medication Reconciliation Form jr11 - Thank You Letter jr11 - Antibiotic Education jr11 - Prescription Opioid Use jr11 Prescriptions: - Macrobid 100 mg Oral Capsule - take 1 capsule by ORAL route every 12 hours for 7 days; 14 capsule; Refills: 0, jr11 Product Selection Permitted Signatures: Dispatcher [employer] EDRancho Carreon MD MD jr11 Kallie Whyte RN RN aa9 Laureen blanco RN RN pf1 Jennifer Bajwa RN RN ad6 Corrections: (The following items were deleted from the chart) 04:07 03:22 GI Cocktail with - (Maalox 30 ml, Lidocaine 2 % 20 ml, pf1 Phenobarbital-Belladonna 10 ml) PO once ordered. jr11
--- NOTE | 2022-10-30 04:50 | ER ---
Nurse's Notes [facility] Name: Linda Rahman Age: 47 yrs Sex: Female : 1975 Arrival Date: 10/30/2022 Time: 03:15 Bed 7 Private MD: Diagnosis: Abdominal tenderness;UTI/ Urinary tract infection, site not specified Presentation: 10/30 03:18 Chief complaint: Patient states: Generalized abdominal pain 8,onset 1 hour ago. Patient pf1 stated the abdominal pain is the same pain she felt on last ER visit. Patient denies any nausea, vomiting or diarrhea. Patient stated LBM was 1.5 hours ago with normal stool. 03:23 Coronavirus screen: Vaccine status: Patient reports receiving the 2nd dose of the covid pf1 vaccine. x 4 doses Client denies travel out of the [place] in the last 14 days. At this time, the client does not indicate any symptoms associated with coronavirus-19. Ebola Screen: Patient negative for fever greater than or equal to 101.5 degrees Fahrenheit, and additional compatible Ebola Virus Disease symptoms. Initial Sepsis Screen: Does the patient meet any 2 criteria? No. Patient's initial sepsis screen is negative. Does the patient have a suspected source of infection? No. Patient's initial sepsis screen is negative. Risk Assessment: Do you want to hurt yourself or someone else? Patient reports no desire to harm self or others. Onset of symptoms was October 30, 2022. 03:23 Method Of Arrival: Ambulatory pf1 03:23 Acuity: [place] 3 pf1 Historical: - Allergies: 03:28 Amoxicillin; pf1 03:28 Codeine; pf1 03:28 Demerol; pf1 03:28 Geodon; pf1 03:28 Meclizine; pf1 03:28 Tessalon Perles; pf1 - Home Meds: 03:32 pantoprazole oral [Active]; topiramate oral [Active]; Buspirone Oral [Active]; pf1 citalopram oral [Active]; Promethazine Oral [Active]; Zofran Oral [Active]; Dicyclomine Oral [Active]; Cartia XT 120 mg Oral cp24 [Active]; levothyroxine 50 mcg cap [Active]; - PMHx: 03:28 Anemia; Anxiety; depression; Asthma; diabetes mellitus; Hypertensive disorder; pf1 Hypothyroidism; Migraine; chronic abdominal pain; - PSHx: 03:28 Cholecystectomy; tubal ligation; pf1 - Immunization history:: Adult Immunizations up to date, Last tetanus immunization: < 5 years ago Flu vaccine is up to date. - Social history:: Smoking status: Patient denies any tobacco usage or history of. Patient/guardian denies using alcohol, street drugs. Screenin:30 [facility] ED Fall Risk Assessment (Adult) History of falling in the last 3 months, pf1 including since admission No falls in past 3 months (0 pts) Confusion or Disorientation No (0 pts) Intoxicated or Sedated No (0 pts) Impaired Gait No (0 pts) Mobility Assist Device Used No (0 pt) Altered Elimination No (0 pt) Score/Fall Risk Level 0 - 2 = Low Risk Oriented to surroundings, Maintained a safe environment, Educated pt \T\ family on fall prevention, incl call for assistance when getting out of bed, Assessed \T\ reinforced patient's understanding of fall precautions, Provided non-skid footwear, Hourly rounding (assess needs \T\ fall precautionary measures) done, Used ambulatory aids as needed (educated on \T\ assisted with), Used gait belt as appropriate. Abuse screen: Denies threats or abuse. Nutritional screening: No deficits noted. Tuberculosis screening: No symptoms or risk factors identified. Assessment: 04:12 General: Appears in no apparent distress. Behavior is calm, cooperative. Pain: ad6 Complains of pain in abdomen Pain currently is 6 out of 10 on a pain scale. GI: Bowel sounds present X 4 quads. Abd is soft X 4 quads. 04:56 Reassessment: Patient appears in no apparent distress at this time. Patient is alert, aa9 oriented x 3, equal unlabored respirations, skin warm/dry/pink. Patient states feeling better. Patient states symptoms have improved. Vital Signs: 03:23 BP 104 / 63; Pulse 95; Resp 18; Temp 97.9; Pulse Ox 100% on R/A; Weight 94.35 kg; pf1 Height 5 ft. 2 in. (157.48 cm); Pain 8/10; 04:12 BP 112 / 73; Pulse 91; Resp 18; Temp 98.7; Pulse Ox 94% ; Pain 6/10; ad6 04:56 BP 121 / 76; Pulse 89; Resp 19 S; Pulse Ox 96% on R/A; aa9 03:23 Body Mass Index 38.04 (94.35 kg, 157.48 cm) pf1 ED Course: 03:15 Patient arrived in ED. jj6 03:15 Rancho Garcia MD is Attending Physician. jr11 03:28 Triage completed. pf1 03:44 Urine Microscopic Only Sent. aa9 03:50 No provider procedures requiring assistance completed. Inserted saline lock: 20 gauge pf1 in right antecubital area, using aseptic technique. Blood collected. 04:07 CMP Sent. pf1 04:07 Lipase Sent. pf1 04:07 Urine Microscopic Only Sent. pf1 04:17 Patient has correct armband on for positive identification. Placed in gown. Bed in low pf1 position. Call light in reach. 04:56 IV discontinued, intact, bleeding controlled, No redness/swelling at site. Pressure aa9 dressing applied. 04:56 Arm band placed on. aa9 Administered Medications: 04:07 CANCELLED (Physician Discretion): GI Cocktail with - (Maalox Suspension 30 ml, pf1 Lidocaine Liquid 2 % 20 ml, Phenobarbital-Belladonna 10 ml) PO once 04:08 Drug: viscous lidocaine 2% 15ml PO once 15 ml Route: PO; pf1 04:48 Follow up: Response: No adverse reaction aa9 04:08 Drug: Maalox (aluminum hydroxide, magnesium hydroxide, simethicone) Suspension (200 pf1 mg-200 mg-20 mg/5 mL) 30 ml Route: PO; 04:48 Follow up: Response: No adverse reaction aa9 04:11 Drug: Pepcid (famotidine) 20 mg Route: IVP; Site: right antecubital; ad6 04:48 Follow up: Response: No adverse reaction aa9 04:11 Drug: TORadol - (ketorolac) 15 mg Route: IVP; Site: right antecubital; ad6 04:48 Follow up: Response: No adverse reaction aa9 04:11 Drug: Zofran (Ondansetron) 4 mg Route: IVP; Site: right antecubital; ad6 04:48 Follow up: Response: No adverse reaction aa9 04:55 Drug: Macrobid (nitrofurantoin) 100 mg Route: PO; aa9 04:57 Follow up: Response: No adverse reaction aa9 Medication: 04:56 VIS not applicable for this client. aa9 Outcome: 04:49 Discharge ordered by . 11 04:56 Discharged to home ambulatory, with friend. aa9 04:56 Condition: stable 04:56 Discharge instructions given to patient, Instructed on discharge instructions, follow up and referral plans. medication usage, Demonstrated understanding of instructions, follow-up care, medications, Prescriptions given X 1. 04:57 Patient left the ED. aa9 Signatures: Ceci Dee Jose, MD MD jr11 Kallie Whyte RN RN aa9 Laureen blanco RN RN pf1 Jennifer Bajwa RN RN ad6 Corrections: (The following items were deleted from the chart) 03:23 03:18 Chief complaint: Patient states: generalized abdominal pain,onset pf1 pf1 03:28 03:18 Chief complaint: Patient states: Generalized abdominal pain 8,onset 1 hour ago. pf1 Patient denies any nausea, vomiting or diarrhea. pf1
[2022-10-30] MEDS ORDERED: NITROFURAN MACRO 100 MG CAP PO ONE (04:54)
--- OUTSIDE RECORDS SUMMARY | 2022-10-30 05:34 | XMS REPORT | Continuity of Care Document ---
:1975 Author Organization [facility] [place] t Address [address] [place] [address] Care Team Providers Name Role Phone TRAY JOLLY Primary Care Physician Unavailable CECILE MÁRQUEZ Attending Clinician Unavailable TRAY JOLLY Attending Clinician Unavailable BEVERLY CORNELIUS Attending Clinician Unavailable NAV ANTONIO Attending Clinician Unavailable SHENA PEREA Attending Clinician Unavailable Shena Perea DO Attending Clinician Osmar Araujo MD Attending Clinician Vik Ellison LMSW Attending Clinician OSMAR ARAUJO Attending Clinician Unavailable Lisandro Dailey MD Attending Clinician [phone] Livia Brady MD Attending Clinician Pantera Navarro MD Attending Clinician PANTERA NAVARRO Attending Clinician Unavailable GREG JACKSON Attending Clinician Unavailable LISANDRO DAILEY Attending Clinician Unavailable Tray Jolly MD Attending Clinician Mi FERNANDO, Kvng Gutiérrez Attending Clinician Unavailable Louis JOHNS, Kemal Packer Attending Clinician Lazaro HOLLINS, Geovanny Attending Clinician Keri HOLLINS, Vicki Weinstein Attending Clinician Vern Bernardo DO Attending Clinician [phone], [facility] Attending Clinician Unavailable Adryan JOHNS, Beverly Attending Clinician ARNOLDO ELIZABETH Attending Clinician Unavailable Doctor Unassigned, [place] Attending Clinician Unavailable LAYNE YI Attending Clinician Unavailable CHANDANA WALSH Attending Clinician Unavailable DESTINY ONEILL Attending Clinician Unavailable Destiny Oneill MD Attending Clinician Alida FERNANDO, Melony Truong Attending Clinician Unavailable Nisa HOLLINS, Andrea Adams Attending Clinician Cecile Márquez MD Attending Clinician BERRY ZHAO Attending Clinician Unavailable Berry Tena Attending Clinician MATEO DE LA TORRE Attending Clinician Unavailable STELLA WORLEY Attending Clinician Unavailable STELLA WORLEY Attending Clinician Unavailable Ry Edge Attending Clinician Unavailable SANJAY SÁNCHEZ Attending Clinician Unavailable CLAU AGUILAR Attending Clinician Unavailable VIK OLIVEIRA Attending Clinician Unavailable Atul HOLLINS, Sendlarissa K.H. Attending Clinician ISAC BARR Attending Clinician Unavailable Sheri Berrios MD Attending Clinician SHERI BERRIOS Attending Clinician Unavailable Vik Oliveira MD Attending Clinician CAPRICE HENRIQUEZ Attending Clinician Unavailable Young Zarate RN Attending Clinician Unavailable Isac Barney Attending Clinician Mateo De La Torre MD Attending Clinician Arnoldo Elizabeth MD Attending Clinician [facility] Attending Clinician GABRIELLA SALAS Attending Clinician Unavailable ANDREA PAULA Attending Clinician Unavailable Princess NI, Sanjay Attending Clinician Gramm Corry JOHNS A Attending Clinician GRAMMCORRY A Attending Clinician Unavailable Caprice Henriquez MD Attending Clinician Caprice Ozuna RN Attending Clinician Unavailable Pob, [facility] Main Attending Clinician Unavailable Jorge Edmondson Attending Clinician Unavailable SHORTY YU Attending Clinician Unavailable Eladia Attending Clinician Unavailable Emily Garcia MA Attending Clinician Unavailable LAUREEN MILLAN Attending Clinician Unavailable David NI, Laureen Truong Attending Clinician LAILA ORELLANA Attending Clinician Unavailable LAILA ORELLANA Attending Clinician Unavailable Rd Prasad MD Attending Clinician RD PRASAD Attending Clinician Unavailable CHELA BLANCO Attending Clinician Unavailable EMERY VALIENTE Attending Clinician Unavailable Tatiana MITCHELL Attending Clinician Unavailable Daria Zaman Attending Clinician Unavailable ROGE TENORIO Attending Clinician Unavailable RICARDO POLLARD.HGabe Attending Clinician Unavailable MARCELINA VALERA Attending Clinician Unavailable MARCELINA VALERA Attending Clinician Unavailable TAMMY LINDO Attending Clinician Unavailable LIANA JOSEPH Attending Clinician Unavailable LAKISHA MAN Attending Clinician Unavailable SHANTI DUCKWORTH Attending Clinician Unavailable BALJIT CURRY Attending Clinician Unavailable AUBRIE SCHAEFFER Attending Clinician Unavailable DORITA MORE Attending Clinician Unavailable FABRICIO DOSS Attending Clinician Unavailable CL DEGROOT Attending Clinician Unavailable CECILE MÁRQUEZ Admitting Clinician Unavailable LIVIA BRADY Admitting Clinician Unavailable Vicki Saavedra MD Admitting Clinician VICKI SAAVEDRA Admitting Clinician Unavailable STELLA WORLEY Admitting Clinician Unavailable Cecile Márquez MD Admitting Clinician MATEO DE LA TORRE Admitting Clinician Unavailable DESTINY ONEILL Admitting Clinician Unavailable Eladia Admitting Clinician Unavailable CAPRICE HENRIQUEZ Admitting Clinician Unavailable Payers Payer Name Policy Type Policy Number Effective Date Expiration Date Barry [facility] DUAL [id number] 2021 COMP CHOICE PPO 00:00:00 DSNP [facility] ST[facility] PLUS [id number] 2021 00:00:00 MEDICAID [facility] [id number] 2016 00:00:00 [id number] 2022 00:00:00 MEDICAID [facility] [id number] [facility] 2021 (MEDICARE 00:00:00 REPLACEMENT HMO) [facility] [id number] 2020 BEHAVIORAL 00:00:00 SOLUTIONS Problems Condition Condition Condition Status Onset Resolution Last Treating Co mments Source Name Details Category Date Date Treatment Clinician Date Intellectu Intellectu Disease Active [facility] disability disability 00:00: Me dical 00 Center 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 00:00: Medical 00 Center Migraines Migraines Disease Active Uni vers 1-24 ity of 00:00: [place] 00 [facility] Branch Allergic Allergic Disease Active Unive rs rhinitis rhinitis -24 ity of 00:00: [place] 00 Medical Branch (HFpEF) (HFpEF) Disease Active Univers heart heart -23 ity of failure failure 00:00: [place] with with 00 Medical preserved preserved Bran [...] d 1-20 ity of abdominal abdominal 00:00: [place] pain pain 00 Medical Branch Incontinen Incontinen Disease Active U nivers ce of ce of 1-20 ity of feces [place] fecal fecal 00 Medical urgency urgency Branch Stress Stress Disease Active Univers 1-20 ity of 00:00: [place] 00 Medical Branch Nausea Nausea Disease Active Univers 1-20 ity of 00:00: [place] 00 Medical Branch Gastritis Gastritis Disease Active Uni vers without without 1-20 ity of bleeding, bleeding, 00:[place] unspecifie unspecifie 00 Me dical d d Branch chronicity chronicity , , unspecifie unspecifie d d gastritis gastritis type type Overflow Overflow Disease Active Unive rs diarrhea diarrhea 1-20 ity of 00:00: [place] [facility] Allergy, Allergy, Disease Active 2021-09 Unive rs subsequent subsequent 2-09 it y of encounter encounter 00:00: [place] 00 Medical Branch Poor Poor Disease Active 2021-09 Univers dentition dentition 2-09 ity of requiring requiring 00:00: Luara forrester referral referral 00 Medica l to to Branch dentistry dentistry Mouth Mouth Disease Active 2021-09 Univers breathing breathing 2-09 ity of 00:00: [place] 00 Medical Branch Weakening Weakening Disease Active Uni vers of pelvic of pelvic 4-08 ity of fundus fundus 00:00: [place] [facility] 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 Added automatic ally from request for surgery [id number] Chronic Chronic Disease Active Overview: Univ ers superficia superficia 4-05 Formattin ity of l l 00:00: g of this [place] gastritis gastritis 00 note Medi cipriano without without might be Branch bleeding bleeding different from the original. Added automatic ally from request for surgery [id number] Hyperplast Hyperplast Disease Active Overview : Univers ic polyps ic polyps 4-05 Formattin i ty of of stomach of stomach 00:00: g of this [place] 00 note Medical might be Branch different from the original. Added automatic ally from request for surgery [id number] Indigestio Indigestio Disease Active 2020-09 Overview : Univers n n 2-15 Formattin ity of 00:00: g of this note Medical might be Branch different from the original. Added automatic ally from request for surgery [id number] Bloating Bloating Disease Active 2020-09 Overview: Un jerrod 2-15 Formattin ity of 00:00: g of this note Medical might be Branch different from the original. 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 Well woman Well woman Disease Active U nivers exam exam 2-05 ity of 00:00: [place] [facility] Chest pain Chest pain Disease Active U nivers 9-13 ity of 00:00: [place] [address] [facility] Peripheral Peripheral Disease Active U nivers neuropathy neuropathy it y of [facility] 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 ity of [facility] PCOS PCOS Disease Active Univers (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) [facility] Branch Allergies, Adverse Reactions, Alerts Allergy Allergy Status Severity Reaction(s) Onset Inactive Treating Comm ents Source Name Type Date Date Clinician Milk Propensi Active Other - See sneeze Uni vers ty to comments 05-09 ity of adverse 00:00: [place] reaction [facility] MILK DRUG Active Other-Cmnt Univer s INGREDI 05-09 ity of 00:00: [place] [facility] Branch Tomato Propensi Active Other - See Tomato Uni vers ty to comments 04-03 source ity of adverse 00:00: reportedl [place] reaction 00 y causes Medica l s excessive Branch sneezing. But pt still eats it. TOMATO DRUG Active Low Other-Cmnt Univer s INGREDI 04-03 ity of 00:00: [place] 00 Medical Branch Codeine Drug Active [facility] CODEINE Allergy Active Low Itching [facility]17 [facility] Center Codeine Propensi Active Itching Univer s ty to 17 ity of adverse 00:00: [place] reaction 00 Medical Branch CODEINE DRUG Active Low ITCHING Univers INGREDI 1-17 ity of 00:00: [place] 00 Medical Branch Lorazepa Drug Active Swelling 2016-09 Hard to [facility]02 [facility] Center LORAZEPA Allergy Active High Swelling 2017- [facility]02 [facility] 00:[facility]: Medical 00 Center Lorazepa Propensi Active Swelling 2017- Hard to Uni vers m ty to 0-02 swallow ity of adverse 00:00: [place] reaction 00 Medical s Branch LORAZEPA DRUG Active High Swelling 2017- Univer s M INGREDI 0-02 ity of 00:00: [place] 00 Medical Branch Diphenhy Drug Active Swelling 2017-[address] [facility] dramine Allergy 7-18 [facility] Hcl 00:[facility]: Medical 00 Center DIPHENHY Allergy Active High Swelling 2017- [facility] DRAMINE 7-18 [facility]CL 00:[facility]: Medical 00 Center Diphenhy Propensi Active Swelling 2017- Univ ers dramine ty to 7-18 ity of Hcl adverse 00:00: [place] reaction 00 Medical s Branch DIPHENHY DRUG Active High Swelling 2017-0 Univer s DRAMINE INGREDI 7-18 ity of HCL 00:00: [place] 00 Medical Branch Benzonat Drug Active Swelling 2017-[address] ate Allergy 2-09 in [facility] 00:00: throat, Medical 00 difficult Center y swallowin g and breathing BENZONAT Allergy Active High Swelling 2017-0 [facility] ATE 2- [facility] 00:[facility]: Medical 00 Center Benzonat Propensi Active Swelling 2017-0 Tightness U nivers ate ty to 2-09 in ity of adverse 00:00: throat, [place] reaction 00 difficult Medic al s to y Branch drug swallowin g and breathing BENZONAT DRUG Active High Swelling 2017-0 Univer s ATE INGREDI 2- ity of 00:00: [place] 00 Medical Branch Meclizin Drug Active Anaphylaxis 2017-[address] [facility] [facility] Allergy - [facility] 00:[facility]: Medical 00 Center MECLIZIN Allergy Active High Anaphylaxis 2017-[address] [facility] - [facility] 00:[facility]: Medical 00 Center Meclizin Propensi Active Anaphylaxis 2017-0 U nivers e ty to 1- ity of adverse 00:00: [place] reaction 00 Medical s Branch MECLIZIN DRUG Active High Anaphylaxis 2017-0 Uni vers E INGREDI 1- ity of 00:00: [place] 00 Medical Branch Meperidi Drug Active Severe 2015-[address] [facility] Hcl Allergy 9-04 reaction( [facility] 00:00: s): Medical 00 Hallucina Center tions Ziprasid Drug Active Hives 2015-[address] one Hcl Allergy 05-30 [facility] 00:[facility]: Medical 00 Center Amoxicil Drug Active Hives 2015-[address] [facility] franca Allergy 05-30 [facility] 00:00: Medical 00 Center AMOXICIL Allergy Active High Hives 2015-[address] [facility] FRANCA -04 [facility] 00:00: Medical 00 Center MEPERIDI Allergy Active High 2015-[address] [facility] [facility] HCL - [facility] 00:00: Medical 00 Center ZIPRASID Allergy Active High Hives 2015-[address] [facility] ONE HCL -04 [facility] 00:00: Medical 00 Center Amoxicil Propensi Active Hives 2015-0 Univer s franca ty to 05-30 ity of adverse 00:00: [place] reaction 00 Medical s Branch Meperidi Propensi Active Hallucinatio 2015-0 Univers ne Hcl ty to ns 04 ity of adverse 00:00: [place] reaction 00 Medical s Branch Ziprasid Propensi Active Hives 2015-0 Univer s one Hcl ty to 904 ity of adverse 00:00: [place] reaction 00 Medical s Branch MEPERIDI DRUG Active High Hallucinates 2015-0 Un jerrod NE HCL INGREDI 05-30 ity of 00:00: [place] 00 Medical Branch ZIPRASID DRUG Active High Hives 2015-0 Univers ONE HCL INGREDI 05-30 ity of 00:00: [place] 00 Medical Branch AMOXICIL DRUG Active High Hives 2015-0 Univers FRANCA INGREDI 05-30 ity of 00:00: [place] 00 Medical Branch Social History Social Habit Start Date Stop Date Quantity Comments Source History SDOH [facility] Alcohol Std Drinks Medica l Center History SDOH [facility] Alcohol Binge Medical Navin ter History SDOH [facility] Alcohol Comment Medical C enter History SDOH Social Unive rsity of [facility] Med ical Together Branch History SDOH Social Unive rsity of [facility] Branch History SDOH Social Unive rsity of [facility] Medical Membership Branch History SDOH Social Unive rsity of [facility] Medical Meetings Branch Exposure to 2022-10-19 2022-10-29 Not sure University of SARS-CoV-2 (event) 00:00:00 14:20:00 [place] [facility] Tobacco use and 2022-10-22 2022-10-[address] [facility] kes exposure 00:00:00 00:00:00 [facility] Center Alcohol intake 2022-10-22 2022-10-[address] [facility] 00:00:00 00:00:00 non-drinker Medical Alinee r (finding) History [facility] 2022-10-22 2022-10-[address] [facility] Alcohol Frequency 00:00:00 00:00:00 Medical Center History SDMT Social 2022-10-19 2022-10-19 5 Unive rsity of Connections Phone 00:00:00 00:00:00 [facility] edical Branch History SDMT Social 2022-10-19 2022-10-19 7 Unive rsity of Connections Living 00:00:00 00:00:00 [place] [facility] History SDOH 2022-10-19 2022-10-19 0 University o f Physical Activity 00:00:00 00:00:00 [facility] edical DPW Branch History SDMT 2022-10-19 2022-10-19 0 University o f Physical Activity 00:00:00 00:00:00 [facility] edical MPS Branch History SDMT 2022-10-19 2022-10-19 4 University o f Financial 00:00:00 00:00:00 [place] [facility] History SDOH Food 2022-10-19 2022-10-19 1 Univers ity of Worry 00:00:00 00:00:00 [place] [facility] History SDOH Food 2022-10-19 2022-10-19 1 Univers ity of Scarcity 00:00:00 00:00:00 [place] [facility] History SDOH 2022-10-19 2022-10-19 2 University o f Transport Med 00:00:00 00:00:00 [place] Medic al Branch History SDMT 2022-10-19 2022-10-19 2 University o f Transport Non-Med 00:00:00 00:00:00 [facility] edical Branch Tobacco Comment 2022-06-17 2022-06-17 10 years ago Univers ity of 00:00:00 00:00:00 [place] [facility] Cigarettes smoked 2022-06-17 2022-06-17 Univers ity of current (pack per 00:00:00 00:00:00 [facility] [place] [facility] edical day) - Reported Branch Cigarette 2022-06-17 2022-06-17 University of pack-years 00:00:00 00:00:00 [facility] History of tobacco 1982-10-20 2007-10-20 Cigarette Smoker University of use 00:00:00 00:00:00 [facility] Sex Assigned At [address] [facility] 00:00:00 00:00:00 Medical Center Smoking Status Start Date Stop Date Source Never sm[facility] Ex-smoker 2022-06-17 00:00:00 2022-06-17 00:00:00 [facility] Medications Ordered Filled Start Stop Current Ordering Indication Dosage Frequency Signature Comments Components Source Medication Medication Date Date Medication? Clinician (SIG) Name Name polyethylen Yes 17g Q.5D Take [address] e glycol 1-30 by mouth 2 [facility] (GLYCOLAX) 14:26: (two) Medica l 17 gram 13 times Center packet daily. lactulose Yes 30g Q.5D Take [address] (CHRONULAC) 1-30 by mouth 2 [facility] kes 10 gram/15 14:26: (two) Medica l mL (15 mL) 13 times Center solution daily. ondansetron Yes 4mg Take [address] (ZOFRAN-ODT 1-30 by mouth Luke s ) 4 MG 14:26: every 8 Medical disintegrat 13 (eight) Cente r ing tablet hours as needed for Nausea. sucralfate 0 Yes 1g Q.5D Take [address] (CARAFATE) 1-30 by mouth 2 Olga es 1 gram 14:26: (two) Medical tablet 13 times Center daily. pantoprazol 0 Yes 40mg Take [address] e 1-30 by mouth 2 [facility] (PROTONIX) 14:26: (two) Medica l 20 MG 13 times Center tablet daily with breakfast and dinner. SUMAtriptan 0 Yes 50mg Take [address] (IMITREX) 1-30 by mouth [facility] 50 MG 14:26: as needed Medical tablet 13 for Center Headaches or Migraine. busPIRone 0 Yes 20mg Q.5D Take [address] (BUSPAR) 10 1-30 by mouth 2 [facility] kes MG tablet 14:26: (two) Medical 13 times Center daily. metoclopram Yes 10mg Take [address] dariela HCl 1-30 by mouth 4 [facility] (REGLAN) 10 14:26: (four) Medi cipriano MG tablet 13 times Center daily before meals and nightly. montelukast 0 Yes 10mg Take [address] (SINGULAIR) 1-30 by mouth Luke s 10 mg 14:26: in the Medical tablet 13 morning. Center cyanocobala Yes 1000ug Inject [facility] min 1-30 1,000 mcg [facility] (VITAMIN 14:26: intramuscu Med ical B-12) 1,000 13 larly once Ce nter mcg/mL every 2 injection weeks. levothyroxi Yes 50ug Take [address] ne 1-30 mcg by [facility]ukes (SYNTHROID, 14:26: mouth Medic al LEVOTHROID) 13 Every Center 50 MCG morning on tablet an empty stomach. dilTIAZem Yes 120mg Q.5D Take [address] (DILACOR 1-30 mg by [facility]ukes XR) 120 MG 14:26: mouth 2 Medi cipriano 24 hr 13 (two) Center capsule times daily. fluticasone Yes 2{puff} Inhale [address] propion-yana 1-30 puffs by Luke s meteroL 14:26: mouth via Medic al (ADVAIR) 13 inhaler Center 100-50 every 12 mcg/dose (twelve) diskus hours. inhaler rosuvastati 0 Yes 10mg QD Take [address] n (CRESTOR) 1-30 by mouth Luke s 10 MG 14:26: daily. Medical tablet 13 Center losartan 0 Yes 50mg Take [address] (COZAAR) 50 1-30 by mouth 2 [facility] k[facility] MG tablet 14:26: (two) Medical 13 times Center daily before meals. ascorbic 2022-0 Yes 1000mg QD Take 1,[address] acid, 1-30 mg by [facility] vitamin C, 14:26: mouth Medica l (ascorbic 13 daily. Center acid with derrell hips) 1000 MG tablet citalopram 2023-0 Yes 40mg QD Take [address] (CeleXA) 40 1-30 by mouth Luke s MG tablet 14:26: daily. Medica l 13 Center topiramate 0 Yes 50mg Q.5D Take [address] (TOPAMAX) 1-30 by mouth 2 Luke s 25 MG 14:26: (two) Medical tablet 13 times Center daily. rosuvastati Yes 10mg 10 mg, Univ ers n (CRESTOR) 1-25 Oral, QHS, it y of tablet 10 03:00: [place] mg 00 on [facility] 10/19/22 at Branch 2100, Until Discontinu ed, Routine lactulose Yes 30mL 30 mL, Univer s (CEPHULAC) 1-25 Oral, BID, ity of solution 30 02:00: First dose [place] mL 00 (after Medical last Branch modificati on) on [facility] 10/19/22 at 2000, Until Discontinu ed, Routine SUMAtriptan 2022- No 50mg 50 mg, Uni vers (IMITREX) 10-1924 Oral, ity of tablet 50 20:15: 21:00 ONCE, 1 [place] mg 00 :00 dose, On [facility] 10/19/22 at 1415, Routine NaCl 0.9% 2022- No 500mL at 999 Univ ers (NS) bolus 10-1924 mL/hr, 500 it y of infusion 19:30: 18:59 mL, IV [place] 500 mL 00 :00 Piggyback, Medical ONCE, 1 Branch dose, On Tue10/19/22 at 1330, STAT MULTIVIT Yes Take by Univer s &MINERALS/F -24 mouth. ity of ERROUS FUM 17:49: [place] ([facility] Medical VITAMIN Branch ORAL) METHYLCELLU Yes Univer s LOSE (FIBER -24 ity of THERAPY 17:49: [place] MISC) [facility] Branch DOCUSATE Yes Take by Univer s SODIUM -24 mouth. ity of (COLACE 17:49: [place] ORAL) [facility] Branch vitamin C Yes 1000mg Take 1,000 Univers with derrell 1-24 mg by ity of hips 1,000 17:49: mouth [place] mg tablet 09 daily. Medical Branch CRANBERRY Yes Take by Unive rs FRUIT 1-24 mouth ity of EXTRACT 17:49: daily. [place] (CRANBERRY 09 Medical ORAL) [place] MULTIVIT Yes Take by Univer s &MINERALS/F 1-24 mouth. ity of ERROUS FUM 17:49: [place] (MULTI 09 Medical VITAMIN Branch ORAL) METHYLCELLU Yes Univer s LOSE (FIBER 1-24 ity of THERAPY 17:49: [place] MISC) 09 Medical Branch DOCUSATE Yes Take by Univer s SODIUM 1-24 mouth. ity of (COLACE 17:49: [place] ORAL) 09 [facility] Branch vitamin C Yes 1000mg Take 1,000 Univers with derrell 1-24 mg by ity of hips 1,000 17:49: mouth [place] mg tablet 09 daily. Medical Branch CRANBERRY Yes Take by Unive rs FRUIT 1-24 mouth ity of EXTRACT 17:49: daily. [place] (CRANBERRY 09 Medical ORAL) [place] MULTIVIT Yes Take by Univer s &MINERALS/F 1-24 mouth. ity of ERROUS FUM 17:49: [place] ([facility] 09 Medical VITAMIN Branch ORAL) METHYLCELLU Yes Univer s LOSE (FIBER 1-24 ity of THERAPY 17:49: [place] MISC) [address] [place] [address] Branch DOCUSATE Yes Take by Univer s SODIUM 1-24 mouth. ity of (COLACE 17:49: [place] ORAL) [address] [place] [address] Branch vitamin C Yes 1000mg Take 1,000 Univers with derrell 1-24 mg by ity of hips 1,000 17:49: mouth [place] mg tablet 09 daily. Medical Branch CRANBERRY Yes Take by Unive rs FRUIT 1-24 mouth ity of EXTRACT 17:49: daily. [place] (CRANBERRY 09 Medical ORAL) Branch MULTIVIT Yes Take by Univer s &MINERALS/F 1-24 mouth. ity of ERROUS FUM 17:49: [place] (MULTI 09 Medical VITAMIN Branch ORAL) METHYLCELLU Yes Univer s LOSE (FIBER 1-24 ity of THERAPY 17:49: [place] MISC) 09 Medical Branch DOCUSATE Yes Take by Univer s SODIUM 1-24 mouth. ity of (COLACE 17:49: [place] ORAL) 09 Medical Branch vitamin C Yes 1000mg Take 1,000 Univers with derrell 1-24 mg by ity of hips 1,000 17:49: mouth [place] mg tablet 09 daily. Medical Branch CRANBERRY Yes Take by Unive rs FRUIT 1-24 mouth ity of EXTRACT 17:49: daily. [place] (CRANBERRY 09 Medical ORAL) Branch MULTIVIT Yes Take by Univer s &MINERALS/F 1-24 mouth. ity of ERROUS FUM 17:49: [place] (MULTI 09 Medical VITAMIN Branch ORAL) METHYLCELLU [...] 1-24 mouth ity of EXTRACT 17:49: daily. [place] (CRANBERRY 09 Medical ORAL) Branch MULTIVIT Yes Take by Univer s &MINERALS/F 1-24 mouth. ity of ERROUS FUM 17:49: [place] (MULTI 09 Medical VITAMIN Branch ORAL) METHYLCELLU Yes Univer s LOSE (FIBER 1-24 ity of THERAPY 17:49: [place] MISC) 09 Medical Branch DOCUSATE Yes Take by Univer s SODIUM 1-24 mouth. ity of (COLACE 17:49: [place] ORAL) 09 Medical Branch vitamin C Yes 1000mg Take 1,000 Univers with derrell 1-24 mg by ity of hips 1,000 17:49: mouth [place] mg tablet 09 daily. Medical Branch CRANBERRY Yes Take by Unive rs FRUIT 1-24 mouth ity of EXTRACT 17:49: daily. [place] (CRANBERRY 09 Medical ORAL) Branch MULTIVIT Yes Take by Univer s &MINERALS/F 1-24 mouth. ity of ERROUS FUM 17:49: [place] [facility] Medical VITAMIN Branch ORAL) METHYLCELLU Yes Univer s LOSE (FIBER 1-24 ity of THERAPY 17:49: [facility]) Medical Branch DOCUSATE Yes Take by Univer s SODIUM 1-24 mouth. ity of (COLACE 17:49: [place] ORAL) Medical Branch vitamin C Yes 1000mg Take 1,000 [facility] with derrell 1-24 mg by ity of hips 1,000 17:49: mouth [place] mg tablet 09 daily. Medical Branch CRANBERRY Yes Take by Unive rs FRUIT 1-24 mouth ity of EXTRACT 17:49: daily. [place] ([facility] 09 Medical ORAL) Branch MULTIVIT Yes Take by Univer s &MINERALS/F 1-24 mouth. ity of ERROUS FUM 17:49: [place] ([place] [address] Medical VITAMIN Branch ORAL) METHYLCELLU Yes Univer s LOSE (FIBER 1-24 ity of THERAPY 17:49: [facility]) Medical Branch DOCUSATE Yes Take by Univer s SODIUM 1-24 mouth. ity of (COLACE 17:49: [place] ORAL) Medical Branch vitamin C Yes 1000mg Take 1,000 [facility] with derrell 1-24 mg by ity of hips 1,000 17:49: mouth [place] mg tablet 09 daily. Medical Branch CRANBERRY Yes Take by Unive rs FRUIT 1-24 mouth ity of EXTRACT 17:49: daily. [place] ([facility] 09 Medical ORAL) Branch MULTIVIT Yes Take by Univer s &MINERALS/F 1-24 mouth. ity of ERROUS FUM 17:49: [place] ([facility] Medical VITAMIN Branch ORAL) METHYLCELLU Yes Univer s LOSE (FIBER 1-24 ity of THERAPY 17:49: [facility]) Medical Branch DOCUSATE Yes Take by Univer s SODIUM 1-24 mouth. ity of (COLACE 17:49: [place] ORAL) Medical Branch vitamin C Yes 1000mg Take 1,000 Univers with derrell 1-24 mg by ity of hips 1,000 17:49: mouth [place] mg tablet 09 daily. Medical Branch CRANBERRY 2023-0 Yes Take by Unive rs FRUIT 1-24 mouth ity of EXTRACT 17:49: daily. [place] ([facility] 09 Medical ORAL) Branch MULTIVIT Yes Take by Univer s &MINERALS/F 1-24 mouth. ity of ERROUS FUM 17:49: [place] (MULTI 09 Medical VITAMIN Branch ORAL) METHYLCELLU Yes Univer s LOSE (FIBER 1-24 ity of THERAPY 17:49: [place] MIS) Medical Branch DOCUSATE Yes Take by Univer s SODIUM 1-24 mouth. ity of (COLACE 17:49: [place] ORAL) Medical Branch vitamin C Yes 1000mg Take 1,000 [facility] with derrell 1-24 mg by ity of hips 1,000 17:49: mouth [place] mg tablet 09 daily. Medical Branch CRANBERRY Yes Take by Unive rs FRUIT 1-24 mouth ity of EXTRACT 17:49: daily. [place] ([facility] 09 Medical ORAL) Branch MULTIVIT Yes Take by Univer s &MINERALS/F 1-24 mouth. ity of ERROUS FUM 17:49: [place] ([place] [address] Medical VITAMIN Branch ORAL) METHYLCELLU Yes Univer s LOSE (FIBER 1-24 ity of THERAPY 17:49: [facility]) [address] [place] [address] Branch DOCUSATE Yes Take by Univer s SODIUM 1-24 mouth. ity of (COLACE 17:49: [place] ORAL) [address] [place] [address] Branch vitamin C Yes 1000mg Take 1,000 Univers with derrell 1-24 mg by ity of hips 1,000 17:49: mouth [place] mg tablet 09 daily. Medical Branch CRANBERRY Yes Take by Unive rs FRUIT 1-24 mouth ity of EXTRACT 17:49: daily. [place] ([facility] 09 Medical ORAL) Branch MULTIVIT Yes Take by Univer s &MINERALS/F 1-24 mouth. ity of ERROUS FUM 17:49: [place] ([facility] Medical VITAMIN Branch ORAL) METHYLCELLU Yes Univer s LOSE (FIBER 1-24 ity of THERAPY 17:49: [place] MIS) Medical Branch DOCUSATE Yes Take by Univer s SODIUM 1-24 mouth. ity of (COLACE 17:49: [place] ORAL) Medical Branch vitamin C Yes 1000mg Take 1,000 [facility] with derrell 1-24 mg by ity of hips 1,000 17:49: mouth [place] mg tablet 09 daily. Medical Branch CRANBERRY Yes Take by Unive rs FRUIT 1-24 mouth ity of EXTRACT 17:49: daily. [place] ([facility] 09 Medical ORAL) Branch MULTIVIT Yes Take by Univer s &MINERALS/F 1-24 mouth. ity of ERROUS FUM 17:49: [place] (MULTI 09 Medical VITAMIN Branch ORAL) METHYLCELLU Yes Univer s LOSE (FIBER 1-24 ity of THERAPY 17:49: [place] MISC) 09 Medical Branch DOCUSATE Yes Take by Univer s SODIUM 1-24 mouth. ity of (COLACE 17:49: [place] ORAL) 09 Medical Branch vitamin C Yes 1000mg Take 1,000 Univers with derrell 1-24 mg by ity of hips 1,000 17:49: mouth [place] mg tablet 09 daily. Medical Branch CRANBERRY Yes Take by Unive rs FRUIT 1-24 mouth ity of EXTRACT 17:49: daily. [place] ([facility] 09 Medical ORAL) Branch MULTIVIT Yes Take by Univer s &MINERALS/F 1-24 mouth. ity of ERROUS FUM 17:49: [place] (MULTI 09 Medical VITAMIN Branch ORAL) METHYLCELLU Yes Univer s LOSE (FIBER 1-24 ity of THERAPY 17:49: [place] MISC) 09 Medical Branch DOCUSATE Yes Take by Univer s SODIUM 1-24 mouth. ity of (COLACE 17:49: [place] ORAL) Medical Branch vitamin C Yes 1000mg Take 1,000 Univers with derrell 1-24 mg by ity of hips 1,000 17:49: mouth [place] mg tablet 09 daily. Medical Branch CRANBERRY Yes Take by Unive rs FRUIT 1-24 mouth ity of EXTRACT 17:49: daily. [place] ([facility] 09 Medical ORAL) Branch MULTIVIT Yes Take by Univer s &MINERALS/F 1-24 mouth. ity of ERROUS FUM 17:49: [place] (MULTI 09 Medical VITAMIN Branch ORAL) METHYLCELLU Yes Univer s LOSE (FIBER 1-24 ity of THERAPY 17:49: [place] MISC) [facility] DOCUSATE Yes [facility] SOD[facility]-24 mouth. ity of (COLACE 17:49: [place] ORAL) [facility] vitamin C Yes 1000mg Take 1,000 Univers with derrell 1-24 mg by ity of hips 1,000 17:49: mouth [place] mg tablet 09 daily. [facility] Branch CRANBERRY Yes Take by [facility] rs FRUIT -24 mouth ity of EXTRACT 17:49: daily. [place] (CRANBERRY Medical ORAL) [place] polyethylen Yes 17g 17 g, [facility] e glycol 1-24 Oral, BID, ity o f 3350 powder 16:45: First dose [place] 17 g 00 on [facility] 10/19/22 at Branch 1045, Until Discontinu ed, Routine pantoprazol 0 Yes 40mg 40 mg, Univ ers e 1-24 Oral, BID, ity of (PROTONIX) 16:15: First dose [place] 2 mg/mL 00 on [facility] oral 10/19/22 at Branch suspension 1015, 40 mg Until Discontinu ed, Routine montelukast 0 Yes 10mg 10 mg, Univ ers (SINGULAIR) 1-24 Oral, ity of tablet 10 15:00: DAILY, [place] mg 00 First dose Medical on [facility] 10/19/22 at 0900, Until Discontinu ed, Routine citalopram 0 Yes 40mg 40 mg, [facility] (CELEXA) 1-24 Oral, ity of tablet 40 15:00: DAILY, [place] mg 00 First dose Medical on [facility] 10/19/22 at 0900, Until Discontinu ed, Routine losartan 2022-0 Yes 50mg 50 mg, Univers (COZAAR) 1-24 Oral, BID, ity o f tablet 50 14:00: First dose [place] mg 00 on [facility] 10/19/22 at Branch 0800, Until Discontinu ed, Routine fluticasone 2022-0 Yes 2{puff} 2 Puff, Univers propionate -24 Inhalation ity of (FLOVENT) 14:00: , Q12H, [place] 110 00 First dose Medical mcg/actuati on [facility] on inhaler 1/24/23 at 2 Puff 0800, Until Discontinu ed, Routine
Is this order for a patient with suspected or confirmed COVID-19 infection? No
Does this order have Pulmonary/ Critical Care approval? No busPIRone 3-0 Yes 20mg 20 mg, Univer s (BUSPAR) 10-19 Oral, BID, ity o f tablet 20 14:00: First dose [place] mg 00 on [facility] 10/19/22 at Branch 0800, Until Discontinu ed, Routine FOLIC ACID 2022-0 2022- No Take by Uni vers ORAL 10-19 mouth ity of 13:15: 00:00 daily. [place] 59 :00 Medical Branch cholecalcif 3-0 3- No 1000U Take 1,000 Univers edmar, 10-19 Units by ity of vitamin D3, 13:15: 00:00 mouth [place] 25 mcg 59 :00 daily. Medical (1,000 Branch unit) tablet CALCIUM 3-0 3- No Take by [facility] ORAL 10-19 mouth ity of 13:15: 00:00 daily. [place] 59 :00 Medical Branch DOCOSAHEXAN 3-0 2023- No 1000mg Take 1,000 Univers OIC 10-19 mg by ity of ACID/EPA 13:15: 00:00 mouth [place] (FISH OIL 59 :00 daily. Medical ORAL) Branch BIOTIN ORAL 3-0 2023- No Take by Un jerrod 10-19 mouth. ity of 13:15: 00:00 [place] 59 :00 Medical Branch FOLIC ACID 3-0 3- No Take by Uni vers ORAL 10-19 mouth ity of 13:15: 00:00 daily. [place] 59 :00 Medical Branch cholecalcif 2023-0 2023- No 1000U Take 1,000 Univers edmar, 10-19 Units by ity of vitamin D3, 13:15: 00:00 mouth [place] 25 mcg 59 :00 daily. Medical (1,000 Branch unit) tablet CALCIUM 2023-0 2023- No Take by [facility] ORAL 10-19 mouth ity of 13:15: 00:00 daily. [place] 59 :00 Medical Branch DOCOSAHEXAN 2023-0 2022- No 1000mg Take 1,000 Univers OIC [...] 00:00 daily. [place] 59 :00 Medical Branch cholecalcif 2022- No 1000U Take 1,000 Univers edmar, 10-19 Units by ity of vitamin D3, 13:15: 00:00 mouth [place] 25 mcg 59 :00 daily. Medical (1,000 Branch unit) tablet CALCIUM 2022- No Take by Univer s ORAL 10-19 mouth ity of 13:15: 00:00 daily. [place] 59 :00 Medical Branch DOCOSAHEXAN 0 2022- No 1000mg Take 1,000 Univers OIC 10-1924 mg by ity of ACID/EPA 13:15: 00:00 mouth [place] (FISH OIL 59 :00 daily. Medical ORAL) Branch BIOTIN ORAL 0 2022- No Take by Un jerrod 10-19 mouth. ity of 13:15: 00:00 [place] 59 :00 Medical Branch levothyroxi 2022-0 Yes 50ug 50 mcg, Uni vers ne 10-19 Oral, ity of (SYNTHROID) 12:00: QAM-0600, [place] tablet 50 00 First dose Medi cipriano mcg on Tue Branch 10/19/22 at 0600, Until Discontinu ed, Routine NaCl 0.9% 2022- No 500mL at 999 Univ ers (NS) bolus 10-19 mL/hr, 500 it y of infusion 10:14: 12:01 mL, IV [place] 500 mL 00 :20 Piggyback, Medical ONCE, 1 Branch dose, On Tue10/19/22 at 0415, SABRINA traMADoL 2022-0 2022- No 50mg 50 mg, Univer s (ULTRAM) 10-19 Oral, ONCE ity of tablet 50 09:45: 10:14 NOW, 1 [place] mg 00 :00 dose, On Medical [facility] Branch 10/19/22 at 0345, Routine diltiazem 0 Yes 120mg 120 mg, Univ ers XR 10-19 Oral, BID, ity of (DILT-XR) 05:15: First dose [place] capsule 120 00 (after Medica l mg last Branch modificati on) on [facility] 10/18/22 at 2315, Until Discontinu ed traMADoL 2022- No 50mg 50 mg, Univer s (ULTRAM) 10-19 Oral, ONCE ity of tablet 50 05:15: 04:44 NOW, 1 [place] mg 00 :00 dose, On [facility] 10/18/22 at 2315, Routine acetaminoph 0 Yes 650mg 650 mg, Un jerrod en 10-19 Oral, Q6H ity of (TYLENOL) 05:00: ABX, First [place] tablet 650 00 dose on Medica l mg [facility] 10/18/22 at 2300, Until Discontinu ed, Routine lidocaine 0 Yes 1{patch 1 Patch, U nivers (LIDODERM) 10-19 } Topical, ity o f 5 % (700 05:00: Administer [place] as mg/patch) 00 over 12 Medical patch 1 Hours, Branch Patch Q12H ABX, First dose on [facility] 10/18/22 at 2300, Until Discontinu ed, SABRINA lactulose 0 2022- No 30mL 30 mL, Unive rs (CEPHULAC) 10-19 Oral, ity of solution 30 04:15: 16:39 DAILY, [place] mL 00 :06 First dose Medical on [facility] 10/18/22 at 2215, Until Discontinu ed, Routine sucralfate 0 Yes 1g 1 g, Oral, U nivers (CARAFATE) 10-19 AC+HS, ity of tablet 1 g 03:45: First dose [place] 00 on [facility] 10/18/22 at Branch 2145, Until Discontinu ed, Routine famotidine 0 Yes 20mg 20 mg, Unive rs (PEPCID AC) 10-19 Oral, BID, it y of tablet 20 03:45: First dose [place] mg 00 on [facility] 10/18/22 at Branch 214, Until Discontinu ed, Routine simethicone 2022-0 Yes 80mg 80 mg, Univ ers (GAS RELIEF 10-19 Oral, ity of (SIMETHICON 03:45: PC+HS, [place] E)) 00 First dose Medical chewable on [facility] tablet 80 10/18/22 at mg 2145, Until Discontinu ed, Routine sennosides- 2022-0 Yes 1{tbl} 1 tablet, [facility] docusate 10-19 Oral, ity of sodium 03:45: DAILY, [place] (SENOKOT-S) 00 First dose Me dical 8.6-50 mg on [facility] per tablet 10/18/22 at 1 tablet 2144, Until Discontinu ed, Routine psyllium 2022-0 2022- No 1{packe 1 Packet, [facility] husk 10-19 t} Oral, ity of (METAMUCIL 03:45: 16:39 DAILY, [place] (SUGAR 00 :06 First dose Medical FREE)) 3.4 on [facility] gram oral 10/18/22 at powder 2144, packet 1 Until Packet Discontinu ed, Routine dicyclomine 2022-0 2022- No 20mg 20 mg, Uni vers (BENTYL) 10-19 Oral, QID, ity of tablet 20 03:45: 16:38 First dose [place] mg 00 :09 on [facility] 10/18/22 at Branch 2145, Until Discontinu ed, Routine ondansetron 2022-0 Yes 4mg 4 mg, Unive rs (ZOFRAN-ODT 10-19 Oral, Q8H ity of ) 03:33: ABX, First [place] disintegrat 00 dose on Medic al ing tablet [facility] 4 mg 10/18/22 at 2145, Until Discontinu ed, Routine cyclobenzap 2022-0 Yes 5mg 5 mg, Unive rs rine 10-19 Oral, ity of (FLEXERIL) 03:23: Q8HPRN, [place] tablet 5 mg 31 Starting Medi cipriano on [facility] 10/18/22 at 2123, Until Discontinu ed, Routine, Muscle Spasms, tension headaches albuterol 2023-0 Yes 2{puff} 2 Puff, Un jerrod (VENTOLIN) 1-24 Inhalation ity of inhaler 2 03:10: , Q6HPRN, [place] Puff 47 Starting Medical on Tue Branch 10/18/22 at 2110, Until Discontinu ed, Routine, Wheezing, Shortness of Breath polyethylen 3-0 Yes [id number] 17g Take 1 Univers e glycol 1-24 Packet by ity of 3350 17 00:00: mouth in [place] gram powder 00 the Medical morning Branch and 1 Packet in the evening. lactulose 3-0 Yes [id number] 30mL Take 30 mL Univers 10 gram/15 1-24 by mouth ity o f mL solution 00:00: in the morning Medical and 30 mL Branch in the evening. ondansetron 2022-0 Yes [id number] 4mg Take 1 Univers 4 mg 1-24 tablet by ity of disintegrat 00:00: mouth [place] ing tablet 00 every 8 Medica l (eight) Branch hours as needed for Nausea and Vomiting (N/V). sucralfate 2022-0 Yes [id number] 1g Take 1 Univers 1 gram 1-24 tablet by ity of tablet 00:00: mouth [place] 00 before Medical meals and Branch at bedtime. pantoprazol 2022-0 Yes [id number] 40mg Take 1 Univers e 40 mg EC 1-24 tablet by ity of tablet 00:00: mouth in [place] 00 the Medical morning Branch and 1 tablet in the evening. SUMAtriptan 2022-0 Yes [id number] 50mg Take 1 Univers 50 mg 1-24 tablet by ity of tablet 00:00: mouth [place] 00 needed for Medical Migraine. Branch May repeat dose after >=2 hours, max dose 200mg in 24 hours. polyethylen 2023-0 Yes [id number] 17g Take 1 Univers e glycol 1-24 Packet by ity of 3350 17 00:00: mouth in [place] gram powder 00 the Medical morning Branch and 1 Packet in the evening. lactulose 3-0 Yes [id number] 30mL Take 30 mL Univers 10 gram/15 1-24 by mouth ity o f mL solution 00:00: in the morning Medical and 30 mL Branch in the evening. ondansetron 3-0 Yes [id number] 4mg Take 1 Univers 4 mg 1-24 tablet by ity of disintegrat 00:00: mouth [place] ing tablet 00 every 8 Medica l (eight) Branch hours as needed for Nausea and Vomiting (N/V). sucralfate 3-0 Yes [id number] 1g Take 1 Univers 1 gram 1-24 tablet by ity of tablet 00:00: mouth [place] 00 before Medical meals and Branch at bedtime. pantoprazol 3-0 Yes [id number] 40mg Take 1 Univers e 40 mg EC 1-24 tablet by ity of tablet 00:00: mouth in [place] the Medical morning Branch and 1 tablet in the evening. SUMAtriptan 2022-0 Yes [id number] 50mg Take 1 Univers 50 mg 1-24 tablet by ity of tablet 00:00: mouth as [place] needed for Medical Migraine. Branch May repeat dose after >=2 hours, max dose 200mg in 24 hours. polyethylen 3-0 Yes [id number] 17g Take 1 Univers e glycol 1-24 Packet by ity of 3350 17 00:00: mouth in [place] gram powder 00 the Medical morning Branch and 1 Packet in the evening. lactulose 3-0 Yes [id number] 30mL Take 30 mL Univers 10 gram/15 1-24 by mouth ity o f mL solution 00:00: in the [facility] morning Medical and 30 mL Branch in the evening. ondansetron 3-0 Yes [id number] 4mg Take 1 Univers 4 mg 1-24 tablet by ity of disintegrat 00:00: mouth [place] ing tablet 00 every 8 Medica l (eight) Branch hours as needed for Nausea and Vomiting (N/V). sucralfate 3-0 Yes [id number] 1g Take 1 Univers 1 gram 1-24 tablet by ity of tablet 00:00: mouth [place] 00 before Medical meals and Branch at bedtime. pantoprazol 3-0 Yes [id number] 40mg Take 1 Univers e 40 mg EC 1-24 tablet by ity of tablet 00:00: mouth in [place] the Medical morning Branch and 1 tablet in the evening. SUMAtriptan 3-0 Yes [id number] 50mg Take 1 Univers 50 mg 1-24 tablet by ity of tablet 00:00: mouth as [place] [address] needed for Medical Migraine. Branch May repeat dose after >=2 hours, max dose 200mg in 24 hours. polyethylen 2023-0 Yes [id number] 17g Take 1 Univers e glycol 1-24 Packet by ity of 3350 17 00:00: mouth in [place] gram powder 00 the Medical morning Branch and 1 Packet in the evening. lactulose 2023-0 Yes [id number] 30mL Take 30 mL Univers 10 gram/15 1-24 by mouth ity o f mL solution 00:00: in the morning Medical and 30 mL Branch in the evening. ondansetron 2023-0 Yes [id number] 4mg Take 1 Univers 4 mg 1-24 tablet by ity of disintegrat 00:00: mouth [place] ing tablet 00 every 8 Medica l (eight) Branch hours as needed for Nausea and Vomiting (N/V). sucralfate 2023-0 Yes [id number] 1g Take 1 Univers 1 gram 1-24 tablet by ity of tablet 00:00: mouth [place] 00 before Medical meals and Branch at bedtime. pantoprazol 2023-0 Yes [id number] 40mg Take 1 Univers e 40 mg EC 1-24 tablet by ity of tablet 00:00: mouth in [place] the Medical morning Branch and 1 tablet in the evening. SUMAtriptan 2023-0 Yes [id number] 50mg Take 1 Univers 50 mg 1-24 tablet by ity of tablet 00:00: mouth as [place] [address] needed for Medical Migraine. Branch May repeat dose after >=2 hours, max dose 200mg in 24 hours. polyethylen 2023-0 Yes [id number] 17g Take 1 Univers e glycol 1-24 Packet by ity of 3350 17 00:00: mouth in [place] gram powder 00 the Medical morning Branch and 1 Packet in the evening. lactulose 2023-0 Yes [id number] 30mL Take 30 mL Univers 10 gram/15 1-24 by mouth ity o f mL solution 00:00: in the [facility] morning Medical and 30 mL Branch in the evening. ondansetron 2023-0 Yes [id number] 4mg Take 1 Univers 4 mg 1-24 tablet by ity of disintegrat 00:00: mouth [place] ing tablet 00 every 8 Medica l (eight) Branch hours as needed for Nausea and Vomiting (N/V). sucralfate 2023-0 Yes [id number] 1g Take 1 Univers 1 gram 1-24 tablet by ity of tablet 00:00: mouth [place] 00 before Medical meals and Branch at bedtime. pantoprazol 2023-0 Yes [id number] 40mg Take 1 Univers e 40 mg EC 1-24 tablet by ity of tablet 00:00: mouth in [place] 00 the Medical morning Branch and 1 tablet in the evening. SUMAtriptan 2023-0 Yes [id number] 50mg Take 1 Univers 50 mg 1-24 tablet by ity of tablet 00:00: mouth as [place] 00 needed for Medical Migraine. Branch May repeat dose after >=2 hours, max dose 200mg in 24 hours. polyethylen 2023-0 Yes [id number] 17g Take 1 Univers e glycol 1-24 Packet by ity of 3350 17 00:00: mouth in [place] gram powder 00 the Medical morning Branch and 1 Packet in the evening. lactulose 3-0 Yes [id number] 30mL Take 30 mL Univers 10 gram/15 1-24 by mouth ity o f mL solution 00:00: in the [facility] 00 morning Medical and 30 mL Branch in the evening. ondansetron 3-0 Yes [id number] 4mg Take 1 Univers 4 mg 1-24 tablet by ity of disintegrat 00:00: mouth [place] ing tablet 00 every 8 Medica l (eight) Branch hours as needed for Nausea and Vomiting (N/V). sucralfate 3-0 Yes [id number] 1g Take 1 Univers 1 gram 1-24 tablet by ity of tablet 00:00: mouth [place] 00 before Medical meals and Branch at bedtime. pantoprazol 3-0 Yes [id number] 40mg Take 1 Univers e 40 mg EC 1-24 tablet by ity of tablet 00:00: mouth in [place] 00 the Medical morning Branch and 1 tablet in the evening. SUMAtriptan 2023-0 Yes [id number] 50mg Take 1 Univers 50 mg 1-24 tablet by ity of tablet 00:00: mouth as [place] 00 needed for Medical Migraine. Branch May repeat dose after >=2 hours, max dose 200mg in 24 hours. polyethylen 2023-0 Yes [id number] 17g Take 1 Univers e glycol 1-24 Packet by ity of 3350 17 00:00: mouth in [place] gram powder 00 the Medical morning Branch and 1 Packet in the evening. lactulose 2023-0 Yes [id number] 30mL Take 30 mL Univers 10 gram/15 1-24 by mouth ity o f mL solution 00:00: in the [facility] morning Medical and 30 mL Branch in the evening. ondansetron 3-0 Yes [id number] 4mg Take 1 Univers 4 mg 1-24 tablet by ity of disintegrat 00:00: mouth [place] ing tablet 00 every 8 Medica l (eight) Branch hours as needed for Nausea and Vomiting (N/V). sucralfate 2023-0 Yes [id number] 1g Take 1 Univers 1 gram 1-24 tablet by ity of tablet 00:00: mouth [place] 00 before Medical meals and Branch at bedtime. pantoprazol 3-0 Yes [id number] 40mg Take 1 Univers e 40 mg EC 1-24 tablet by ity of tablet 00:00: mouth in [place] 00 the Medical morning Branch and 1 tablet in the evening. SUMAtriptan 3-0 Yes [id number] 50mg Take 1 Univers 50 mg 1-24 tablet by ity of tablet 00:00: mouth as [place] 00 needed for Medical Migraine. Branch May repeat dose after >=2 hours, max dose 200mg in 24 hours. polyethylen 3-0 Yes [id number] 17g Take 1 Univers e glycol 1-24 Packet by ity of 3350 17 00:00: mouth in [place] gram powder 00 the Medical morning Branch and 1 Packet in the evening. lactulose 3-0 Yes [id number] 30mL Take 30 mL Univers 10 gram/15 1-24 by mouth ity o f mL solution 00:00: in the [facility] morning Medical and 30 mL Branch in the evening. ondansetron 3-0 Yes [id number] 4mg Take 1 Univers 4 mg 1-24 tablet by ity of disintegrat 00:00: mouth [place] ing tablet 00 every 8 Medica l (eight) Branch hours as needed for Nausea and Vomiting (N/V). sucralfate 2023-0 Yes [id number] 1g Take 1 Univers 1 gram 1-24 tablet by ity of tablet 00:00: mouth [place] 00 before Medical meals and Branch at bedtime. pantoprazol 2023-0 Yes [id number] 40mg Take 1 Univers e 40 mg EC 1-24 tablet by ity of tablet 00:00: mouth in [place] 00 the Medical morning Branch and 1 tablet in the evening. SUMAtriptan 2023-0 Yes [id number] 50mg Take 1 Univers 50 mg 1-24 tablet by ity of tablet 00:00: mouth as [place] [address] needed for Medical Migraine. Branch May repeat dose after >=2 hours, max dose 200mg in 24 hours. polyethylen 2023-0 Yes [id number] 17g Take 1 Univers e glycol 1-24 Packet by ity of 3350 17 00:00: mouth in [place] gram powder 00 the Medical morning Branch and 1 Packet in the evening. lactulose 2023-0 Yes [id number] 30mL Take 30 mL Univers 10 gram/15 1-24 by mouth ity o f mL solution 00:00: in the [facility] morning Medical and 30 mL Branch in the evening. ondansetron 2023-0 Yes [id number] 4mg Take 1 Univers 4 mg 1-24 tablet by ity of disintegrat 00:00: mouth [place] ing tablet 00 every 8 Medica l (eight) Branch hours as needed for Nausea and Vomiting (N/V). sucralfate 2023-0 Yes [id number] 1g Take 1 Univers 1 gram 1-24 tablet by ity of tablet 00:00: mouth [place] 00 before Medical meals and Branch at bedtime. pantoprazol 2023-0 Yes [id number] 40mg Take 1 Univers e 40 mg EC 1-24 tablet by ity of tablet 00:00: mouth in [place] 00 the Medical morning Branch and 1 tablet in the evening. SUMAtriptan 2023-0 Yes [id number] 50mg Take 1 Univers 50 mg 1-24 tablet by ity of tablet 00:00: mouth as [place] [address] needed for Medical Migraine. Branch May repeat dose after >=2 hours, max dose 200mg in 24 hours. polyethylen 2023-0 Yes [id number] 17g Take 1 Univers e glycol 1-24 Packet by ity of 3350 17 00:00: mouth in [place] gram powder 00 the Medical morning Branch and 1 Packet in the evening. lactulose 2023-0 Yes [id number] 30mL Take 30 mL Univers 10 gram/15 1-24 by mouth ity o f mL solution 00:00: in the [facility] morning Medical and 30 mL Branch in the evening. ondansetron 2023-0 Yes [id number] 4mg Take 1 Univers 4 mg 1-24 tablet by ity of disintegrat 00:00: mouth [place] ing tablet 00 every 8 Medica l (eight) Branch hours as needed for Nausea and Vomiting (N/V). sucralfate 2023-0 Yes [id number] 1g Take 1 Univers 1 gram 1-24 tablet by ity of tablet 00:00: mouth [place] 00 before Medical meals and Branch at bedtime. pantoprazol 2023-0 Yes [id number] 40mg Take 1 Univers e 40 mg EC 1-24 tablet by ity of tablet 00:00: mouth in [place] 00 the Medical morning Branch and 1 tablet in the evening. SUMAtriptan 3-0 Yes [id number] 50mg Take 1 Univers 50 mg 1-24 tablet by ity of tablet 00:00: mouth as [place] [address] needed for Medical Migraine. Branch May repeat dose after >=2 hours, max dose 200mg in 24 hours. polyethylen 3-0 Yes [id number] 17g Take 1 Univers e glycol 1-24 Packet by ity of 3350 17 00:00: mouth in [place] gram powder 00 the Medical morning Branch and 1 Packet in the evening. lactulose 2022-0 Yes [id number] 30mL Take 30 mL [facility] 10 gram/15 1-24 by mouth ity o f mL solution 00:00: in the [facility] morning Medical and 30 mL Branch in the evening. ondansetron 3-0 Yes [id number] 4mg Take 1 [facility] 4 mg 1-24 tablet by ity of disintegrat 00:00: mouth [place] ing tablet 00 every 8 Medica l (eight) Branch hours as needed for Nausea and Vomiting (N/V). sucralfate 3-0 Yes [id number] 1g Take 1 [facility] 1 gram 1-24 tablet by ity of tablet 00:00: mouth [place] 00 before Medical meals and Branch at bedtime. pantoprazol 2023-0 Yes [id number] 40mg Take 1 [facility] e 40 mg EC 1-24 tablet by ity of tablet 00:00: mouth in [place] 00 the Medical morning Branch and 1 tablet in the evening. SUMAtriptan 3-0 Yes [id number] 50mg Take 1 [facility] 50 mg 1-24 tablet by ity of tablet 00:00: mouth as [place] [address] needed for Medical Migraine. Branch May repeat dose after >=2 hours, max dose 200mg in 24 hours. polyethylen 2023-0 Yes [id number] 17g Take 1 [facility] e glycol 1-24 Packet by ity of 3350 17 00:00: mouth in [place] gram powder 00 the Medical morning Branch and 1 Packet in the evening. lactulose 2023-0 Yes [id number] 30mL Take 30 mL [facility] 10 gram/15 1-24 by mouth ity o f mL solution 00:00: in the morning Medical and 30 mL Branch in the evening. ondansetron 2023-0 Yes [id number] 4mg Take 1 [facility] 4 mg 1-24 tablet by ity of disintegrat 00:00: mouth [place] ing tablet 00 every 8 Medica l (eight) Branch hours as needed for Nausea and Vomiting (N/V). sucralfate 2023-0 Yes [id number] 1g Take 1 [facility] 1 gram 1-24 tablet by ity of tablet 00:00: mouth 00 before Medical meals and Branch at bedtime. pantoprazol 2023-0 Yes [id number] 40mg Take 1 [facility] e 40 mg EC 1-24 tablet by ity of tablet 00:00: mouth in [place] the Medical morning Branch and 1 tablet in the evening. SUMAtriptan 2023-0 Yes [id number] 50mg Take 1 [facility] 50 mg 1-24 tablet by ity of tablet 00:00: mouth as [place] 00 needed for Medical Migraine. Branch May repeat dose after >=2 hours, max dose 200mg in 24 hours. polyethylen 2023-0 Yes [id number] 17g Take 1 [facility] e glycol 1-24 Packet by ity of 3350 17 00:00: mouth in [place] gram powder 00 the Medical morning Branch and 1 Packet in the evening. lactulose 2023-0 Yes [id number] 30mL Take 30 mL [facility] 10 gram/15 1-24 by mouth ity o f mL solution 00:00: in the [facility] morning Medical and 30 mL Branch in the evening. ondansetron 2023-0 Yes [id number] 4mg Take 1 [facility] 4 mg 1-24 tablet by ity of disintegrat 00:00: mouth [place] ing tablet 00 every 8 Medica l (eight) Branch hours as needed for Nausea and Vomiting (N/V). sucralfate 2023-0 Yes [id number] 1g Take 1 [facility] 1 gram 1-24 tablet by ity of tablet 00:00: mouth 00 before Medical meals and Branch at bedtime. pantoprazol Yes [id number] 40mg Take 1 [facility] e 40 mg EC 1-24 tablet by ity of tablet 00:00: mouth in 00 the Medical morning Branch and 1 tablet in the evening. SUMAtriptan Yes [id number] 50mg Take 1 [facility] 50 mg 1-24 tablet by ity of tablet 00:00: mouth as 00 needed for Medical Migraine. Branch May repeat dose after >=2 hours, max dose 200mg in 24 hours. iopamidol 2022- No [id number] 73mL 73 mL, Univers (ISOVUE 10-19 Intravenou ity o f 370-500 mL) 00:00: 00:00 s, ONCE, 1 [place] injection 00 :00 dose, On Medica l 73 mL [facility] 10/18/22 at 1800, Routine lactulose 2022- No 45mL 45 mL, Unive rs (CEPHULAC) 10-18 Oral, ity of solution 45 23:45: 23:48 ONCE, 1 [place] mL 00 :00 dose, On [facility] 10/18/22 at 1745, SABRINA dicyclomine 2022- No 20mg 20 mg, Uni vers (BENTYL) 10-18 Intramuscu ity of injection 22:30: 22:11 lar, ONCE, [place] 20 mg 00 :00 1 dose, On [facility] 10/18/22 at 1630, Routine NaCl 0.9% 2022- No 1000mL at 999 Uni vers (NS) bolus 10-18 mL/hr, ity of infusion 22:30: 23:42 1,000 mL, [place] as 1,000 mL 00 :00 IV Medical Infusion, Branch ONCE, 1 dose, On [facility] 10/18/22 at 1630, SABRINA MULTIVIT Yes Take by [facility] s &MINERALS/F 10-18 mouth. ity of ERROUS FUM 21:34: [place] (MULTI 37 Medical VITAMIN Branch ORAL) METHYLCELLU Yes [facility] s LOSE (FIBER 10-18 ity of THERAPY 21:34: [place] MIS) 37 Medical Branch DOCUSATE Yes Take by Univer s SODIUM 1-23 mouth. ity of (COLACE 21:34: [place] ORAL) 37 Medical Branch vitamin C Yes 1000mg Take 1,000 Univers with derrell 1-23 mg by ity of hips 1,000 21:34: mouth [place] mg tablet 37 daily. Medical Branch DOCOSAHEXAN Yes 1000mg Take 1,000 [facility] OIC 1-23 mg by ity of ACID/EPA 21:34: mouth [place] (FISH OIL 37 daily. Medical ORAL) Branch FOLIC ACID Yes Take by Univ ers ORAL 1-23 mouth ity of 20:39: daily. [place] [address] Medical Branch cholecalcif Yes 1000U Take 1,000 Univers edmar, 1-23 Units by ity of vitamin D3, 20:39: mouth [place] 25 mcg 28 daily. Medical (1,000 Branch unit) tablet CRANBERRY Yes [facility] FR[facility] 1-23 mouth ity of EXTRACT 20:39: daily. [place] (CRANBERRY 28 Medical ORAL) Branch CALCIUM Yes Take by Univers ORAL 1-23 mouth ity of 20:39: daily. [place] [address] Medical Branch BIOTIN ORAL Yes Take by Uni vers 1-23 mouth. ity of 20:39: [place] [address] Medical Branch peg-electro Yes [id number] Take as [facility] lyte soln 1-20 9102 directed ity of 236-22.74-6 00:00: [place] .74 -5.86 00 colonoscop Medi cipriano gram y Branch solution peg-electro 2022-0 Yes [id number] Take as [facility] lyte soln 1-20 9102 directed ity of 236-22.74-6 00:00: [place] .74 -5.86 00 colonoscop Medi cipriano gram y Branch solution peg-electro 2022-0 Yes [id number] Take as [facility] lyte soln 1-20 9102 directed ity of 236-22.74-6 00:00: [place] .74 -5.86 00 colonoscop Medi cipriano gram y Branch solution peg-electro 2022-0 Yes [id number] Take as [facility] lyte soln 1-20 9102 directed ity of 236-22.74-6 00:00: [place] .74 -5.86 00 colonoscop Medi cipriano gram y Branch solution peg-electro 2022- Yes [id number] Take as [facility] lyte soln 10-15 directed ity of 236-22.74-6 00:00: [place] .74 -5.86 00 colonoscop Medi cipriano gram y Branch solution peg-electro 2022- No [id number] Take as Univers lyte soln 10-1502 directed ity o f 236-22.74-6 00:00: 00:00 before [place] .74 -5.86 00 :00 colonoscop Medi cipriano gram y Branch solution peg-electro 2022- No [id number] Take as Univers lyte soln 10-1502 directed ity o f 236-22.74-6 00:00: 00:00 before [place] .74 -5.86 00 :00 colonoscop Medi cipriano gram y Branch solution busPIRone 3-0 Yes [id number] 20mg Take 2 Un [place] 10 mg 1-17 tablets by ity of tablet 00:00: mouth in [place] 00 the Medical morning Branch and 2 tablets in the evening. busPIRone 2023-0 Yes [id number] 20mg Take 2 Un [place] 10 mg 1-17 tablets by ity of tablet 00:00: mouth in [place] 00 the Medical morning Branch and 2 tablets in the evening. busPIRone 2023-0 Yes [id number] 20mg Take 2 Un [place] 10 mg 1-17 tablets by ity of tablet 00:00: mouth in [place] 00 the Medical morning Branch and 2 tablets in the evening. busPIRone 2023-0 Yes [id number] 20mg Take 2 Un [place] 10 mg 1-17 tablets by ity of tablet 00:00: mouth in [place] 00 the Medical morning Branch and 2 tablets in the evening. busPIRone 2023-0 Yes [id number] 20mg Take 2 Un [place] 10 mg 1-17 tablets by ity of tablet 00:00: mouth in [place] 00 the Medical morning Branch and 2 tablets in the evening. busPIRone 2023-0 Yes [id number] 20mg Take 2 Un [place] 10 mg 1-17 tablets by ity of tablet 00:00: mouth in [place] 00 the Medical morning Branch and 2 tablets in the evening. busPIRone 2023-0 Yes [id number] 20mg Take 2 Un [place] 10 mg 1-17 tablets by ity of tablet 00:00: mouth in [place] 00 the Medical morning Branch and 2 tablets in the evening. busPIRone 2023-0 Yes [id number] 20mg Take 2 Un [place] 10 mg 1-17 tablets by ity of tablet 00:00: mouth in [place] 00 the Medical morning Branch and 2 tablets in the evening. busPIRone 2023-0 Yes [id number] 20mg Take 2 Un [place] 10 mg 1-17 tablets by ity of tablet 00:00: mouth in [place] 00 the Medical morning Branch and 2 tablets in the evening. busPIRone 2023-0 Yes [id number] 20mg Take 2 Un [place] 10 mg 1-17 tablets by ity of tablet 00:00: mouth in [place] 00 the Medical morning Branch and 2 tablets in the evening. busPIRone 2023-0 Yes [id number] 20mg Take 2 Un [place] 10 mg 1-17 tablets by ity of tablet 00:00: mouth in [place] 00 the Medical morning Branch and 2 tablets in the evening. busPIRone 2023-0 Yes [id number] 20mg Take 2 Un [place] 10 mg 1-17 tablets by ity of tablet 00:00: mouth in [place] 00 the Medical morning Branch and 2 tablets in the evening. busPIRone 2023-0 Yes [id number] 20mg Take 2 Un [place] 10 mg 1-17 tablets by ity of tablet 00:00: mouth in [place] 00 the Medical morning Branch and 2 tablets in the evening. busPIRone 2023-0 Yes [id number] 20mg Take 2 Un [place] 10 mg 1-17 tablets by ity of tablet 00:00: mouth in [place] 00 the Medical morning Branch and 2 tablets in the evening. busPIRone 2023-0 Yes [id number] 20mg Take 2 Un [place] 10 mg 1-17 tablets by ity of tablet 00:00: mouth in [place] 00 the Medical morning Branch and 2 tablets in the evening. busPIRone 2023-0 Yes [id number] 20mg Take 2 Un [place] 10 mg 1-17 tablets by ity of tablet 00:00: mouth in [place] 00 the Medical morning Branch and 2 tablets in the evening. busPIRone 2023-0 Yes [id number] 20mg Take 2 Un [place] 10 mg 1-17 tablets by ity of tablet 00:00: mouth in [place] 00 the Medical morning Branch and 2 tablets in the evening. busPIRone 2023-0 Yes [id number] 20mg Take 2 Un [place] 10 mg 1-17 tablets by ity of tablet 00:00: mouth in [place] 00 the Medical morning Branch and 2 tablets in the evening. busPIRone 2023-0 Yes [id number] 20mg Take 2 Un [place] 10 mg 1-17 tablets by ity of tablet 00:00: mouth in [place] 00 the Medical morning Branch and 2 tablets in the evening. busPIRone 2023-0 Yes [id number] 20mg Take 2 Un [place] 10 mg 1-17 tablets by ity of tablet 00:00: mouth in [place] 00 the Medical morning Branch and 2 [...] FOR Bran ch 7 DAYS traMADoL 50 Yes TAKE 1 Univ ers mg tablet -14 TABLET BY ity o f 00:00: MOUTH [place] 00 EVERY 8 Medical HOURS Branch NEEDED traMADoL 50 0 Yes TAKE 1 Univ ers mg tablet -14 TABLET BY ity o f 00:00: MOUTH [...] for Pain (scale 1-3) (as directed). sulfamethox 2022- No TAKE 1 Uni vers azole-trime -14 10-19 TABLET BY it y of thoprim 00:00: 00:00 MOUTH [place] 800-160 mg 00 :00 EVERY 12 Medic al per tablet HOURS FOR Bran ch 7 DAYS sulfamethox 2022- No TAKE 1 Uni vers azole-trime -14 10-19 TABLET BY it y of thoprim 00:00: 00:00 MOUTH [place] 800-160 mg 00 :00 EVERY 12 Medic al per tablet HOURS FOR Bran ch 7 DAYS sulfamethox 2022-0 2022- No TAKE 1 Uni vers azole-trime -14 24 TABLET BY it y of thoprim 00:00: 00:00 MOUTH [place] 800-160 mg 00 :00 EVERY 12 Medic al per tablet HOURS FOR Bran ch 7 DAYS metroNIDAZO Yes [id number] 500mg Take 1 Univers LE 500 mg 1-12 tablet by ity o f tablet 00:00: mouth in [place] 00 the Medical morning Branch and 1 tablet in the evening. dicyclomine Yes [id number] 20mg Take 1 [facility] 20 mg 1-12 tablet by ity of tablet 00:00: mouth 4 [place] ([facility]) Medical times [place] daily. metroNIDAZO 2023-0 Yes [id number] 500mg Take 1 [facility] LE 500 mg 1-12 tablet by ity o f tablet 00:00: mouth in [place] 00 the Medical morning Branch and 1 tablet in the evening. dicyclomine 2023-0 Yes [id number] 20mg Take 1 [facility] 20 mg 1-12 tablet by ity of tablet 00:00: mouth 4 [place] ([facility]) Medical times [place] daily. metroNIDAZO 2023-0 Yes [id number] 500mg Take 1 [facility] LE 500 mg 1-12 tablet by ity o f tablet 00:00: mouth in [place] 00 the Medical morning Branch and 1 tablet in the evening. dicyclomine 2023-0 Yes [id number] 20mg Take 1 [facility] 20 mg 1-12 tablet by ity of tablet 00:00: mouth [place] ([facility]) Medical times [place] daily. metroNIDAZO 2023-0 Yes [id number] 500mg Take 1 [facility] LE 500 mg 1-12 tablet by ity o f tablet 00:00: mouth in [place] the Medical morning Branch and 1 tablet in the evening. dicyclomine 2023-0 Yes [id number] 20mg Take 1 [facility] 20 mg 1-12 tablet by ity of tablet 00:00: mouth [place] ([facility]) Medical times [place] daily. metroNIDAZO 2023-0 Yes [id number] 500mg Take 1 [facility] LE 500 mg 1-12 tablet by ity o f tablet 00:00: mouth in [place] 00 the Medical morning Branch and 1 tablet in the evening. dicyclomine 2023-0 Yes [id number] 20mg Take 1 [facility] 20 mg 1-12 tablet by ity of tablet 00:00: mouth [place] ([facility]) Medical times [place] daily. metroNIDAZO 2023-0 Yes [id number] 500mg Take 1 [facility] LE 500 mg 1-12 tablet by ity o f tablet 00:00: mouth in [place] the Medical morning Branch and 1 tablet in the evening. dicyclomine 2023-0 Yes [id number] 20mg Take 1 [facility] 20 mg 1-12 tablet by ity of tablet 00:00: mouth 4 [place] ([facility]) Medical times [place] daily. metroNIDAZO 2023-0 2023- No [id number] 500mg Take 1 [facility] LE 500 mg 10-07 tablet by ity of tablet 00:00: 00:00 mouth in [place] 00 :00 the Medical morning Branch and 1 tablet in the evening. dicyclomine 2022-0 2022- No [id number] 20mg Take 1 [facility] 20 mg 10-07 tablet by ity of tablet 00:00: 00:00 mouth 4 [place] 00 :00 ([facility]) Medical times [place] daily. metroNIDAZO 2022-0 2022- No [id number] 500mg Take 1 [facility] LE 500 mg 10-07 tablet by ity of tablet 00:00: 00:00 mouth in [place] 00 :00 the Medical morning Branch and 1 tablet in the evening. dicyclomine 2022-0 2022- No [id number] 20mg Take 1 [facility] 20 mg 10-07 tablet by ity of tablet 00:00: 00:00 mouth 4 [place] 00 :00 ([facility]) [facility] daily. metroNIDAZO 2022-0 2022- No [id number] 500mg Take 1 [facility] LE 500 mg 10-07 tablet by ity of tablet 00:00: 00:00 mouth in [place] 00 :00 the [facility] morning Branch and 1 tablet in the evening. dicyclomine 2022-0 2022- No [id number] 20mg Take 1 [facility] 20 mg 10-07 tablet by ity of tablet 00:00: 00:00 mouth 4 [place] 00 :00 ([facility]) [facility] daily. dicyclomine 2023-0 Yes 20mg Take 20 mg [facility] 20 mg 1-10 by mouth 4 ity of tablet 00:00: ([facility]) [place] 00 times Medical daily. Branch metoclopram 3-0 Yes TAKE 1 Univ ers dariela HCl 10 1-10 TABLET BY ity of mg tablet 00:00: MOUTH [place] 00 EVERY 6 Medical HOURS (30 Branch MINUTES BEFORE MEALS AND AT BEDTIME) dicyclomine 2023-0 Yes 20mg Take 20 mg [facility] 20 mg 1-10 by mouth 4 ity of tablet 00:00: ([facility]) [place] 00 times Medical daily. Branch metoclopram 3-0 Yes TAKE 1 Univ ers dariela HCl 10 1-10 TABLET BY ity of mg tablet 00:00: MOUTH [place] 00 EVERY 6 Medical HOURS (30 Branch MINUTES BEFORE MEALS AND AT BEDTIME) metoclopram 2023-0 Yes TAKE 1 Univ ers dariela HCl 10 1-10 TABLET BY ity of mg tablet 00:00: MOUTH [place] 00 EVERY 6 Medical HOURS (30 Branch MINUTES BEFORE MEALS AND AT BEDTIME) metoclopram 2023-0 Yes TAKE 1 Univ ers dariela HCl 10 1-10 TABLET BY ity of mg tablet 00:00: MOUTH [place] 00 EVERY 6 Medical HOURS (30 Branch MINUTES BEFORE MEALS AND AT BEDTIME) metoclopram 2023-0 Yes TAKE 1 Univ ers dariela HCl 10 1-10 TABLET BY ity of mg tablet 00:00: MOUTH [place] 00 EVERY 6 Medical HOURS (30 Branch MINUTES BEFORE MEALS AND AT BEDTIME) metoclopram 2023-0 Yes TAKE 1 Univ ers dariela HCl 10 1-10 TABLET BY ity of mg tablet 00:00: MOUTH 00 EVERY 6 Medical HOURS (30 Branch MINUTES BEFORE MEALS AND AT BEDTIME) metoclopram 2023-0 Yes TAKE 1 Univ ers dariela HCl 10 1-10 TABLET BY ity of mg tablet 00:00: MOUTH 00 EVERY 6 Medical HOURS (30 Branch MINUTES BEFORE MEALS AND AT BEDTIME) metoclopram 2023-0 Yes TAKE 1 Univ ers dariela HCl 10 1-10 TABLET BY ity of mg tablet 00:00: MOUTH 00 EVERY 6 Medical HOURS (30 Branch MINUTES BEFORE MEALS AND AT BEDTIME) metoclopram 2023-0 Yes TAKE 1 Univ ers dariela HCl 10 1-10 TABLET BY ity of mg tablet 00:00: MOUTH 00 EVERY 6 Medical HOURS (30 Branch MINUTES BEFORE MEALS AND AT BEDTIME) metoclopram 2023-0 Yes TAKE 1 Univ ers dariela HCl 10 1-10 TABLET BY ity of mg tablet 00:00: MOUTH [place] 00 EVERY 6 Medical HOURS (30 Branch MINUTES BEFORE MEALS AND AT BEDTIME) metoclopram 2023-0 Yes TAKE 1 Univ ers dariela HCl 10 1-10 TABLET BY ity of mg tablet 00:00: MOUTH 00 EVERY 6 Medical HOURS (30 Branch MINUTES BEFORE MEALS AND AT BEDTIME) metoclopram 2023-0 Yes TAKE 1 Univ ers dariela HCl 10 1-10 TABLET BY ity of mg tablet 00:00: MOUTH 00 EVERY 6 Medical HOURS (30 Branch MINUTES BEFORE MEALS AND AT BEDTIME) metoclopram 2023-0 Yes TAKE 1 Univ ers dariela HCl 10 1-10 TABLET BY ity of mg tablet 00:00: MOUTH [place] 00 EVERY 6 Medical HOURS (30 Branch MINUTES BEFORE MEALS AND AT BEDTIME) metoclopram 2023-0 Yes TAKE 1 Univ ers dariela HCl 10 1-10 TABLET BY ity of mg tablet 00:00: MOUTH 00 EVERY 6 Medical HOURS (30 Branch MINUTES BEFORE MEALS AND AT BEDTIME) metoclopram 2023-0 Yes TAKE 1 Univ ers dariela HCl 10 1-10 TABLET BY ity of mg tablet 00:00: MOUTH 00 EVERY 6 Medical HOURS (30 Branch MINUTES BEFORE MEALS AND AT BEDTIME) metoclopram 2023-0 Yes TAKE 1 Univ ers dariela HCl 10 1-10 TABLET BY ity of mg tablet 00:00: MOUTH 00 EVERY 6 Medical HOURS (30 Branch MINUTES BEFORE MEALS AND AT BEDTIME) metoclopram 2023-0 Yes TAKE 1 Univ ers dariela HCl 10 1-10 TABLET BY ity of mg tablet 00:00: MOUTH 00 EVERY 6 Medical HOURS (30 Branch MINUTES BEFORE MEALS AND AT BEDTIME) metoclopram 2023-0 Yes TAKE 1 Univ ers dariela HCl 10 1-10 TABLET BY ity of mg tablet 00:00: MOUTH EVERY 6 Medical HOURS (30 Branch MINUTES BEFORE MEALS AND AT BEDTIME) metoclopram 2023-0 Yes TAKE 1 Univ ers dariela HCl 10 1-10 TABLET BY ity of mg tablet 00:00: MOUTH EVERY 6 Medical HOURS (30 Branch MINUTES BEFORE MEALS AND AT BEDTIME) metoclopram 2023-0 Yes TAKE 1 Univ ers dariela HCl 10 1-10 TABLET BY ity of mg tablet 00:00: MOUTH EVERY 6 Medical HOURS (30 Branch MINUTES BEFORE MEALS AND AT BEDTIME) metoclopram 2023-0 Yes TAKE 1 Univ ers dariela HCl 10 1-10 TABLET BY ity of mg tablet 00:00: MOUTH 00 EVERY 6 Medical HOURS (30 Branch MINUTES BEFORE MEALS AND AT BEDTIME) metoclopram 2023-0 Yes TAKE 1 Univ ers dariela HCl 10 1-10 TABLET BY ity of mg tablet 00:00: MOUTH 00 EVERY 6 Medical HOURS (30 Branch MINUTES BEFORE MEALS AND AT BEDTIME) metoclopram 2023-0 Yes TAKE 1 Univ ers dariela HCl 10 1-10 TABLET BY ity of mg tablet 00:00: MOUTH 00 EVERY 6 Medical HOURS (30 Branch MINUTES BEFORE MEALS AND AT BEDTIME) dicyclomine 2023-0 2023- No 20mg Take 20 mg [facility] 20 mg 10-05 by mouth 4 ity of tablet 00:00: [...] No TAKE 2 Uni vers te-atropine 2-17 24 TABLETS BY i ty of 2.5-0.025 00:00: 00:00 MOUTH ONCE [place] mg tablet 00 :00 DAILY Medica l NEEDED Branch diphenoxyla 2021-09- No TAKE 2 Uni vers te-atropine 2-17 24 TABLETS BY i ty of 2.5-0.025 00:00: 00:00 MOUTH ONCE [place] mg tablet 00 :00 DAILY Medica l NEEDED Branch pregabalin 2021-09 Yes [id number] 150mg Take 1 [facility] 150 mg 2-14 capsule by ity of capsule 00:00: mouth in [place] [address] the [facility] morning [place] and 1 capsule at noon and 1 capsule in the evening. pregabalin 2021-09 Yes [id number] 150mg Take 1 [facility] 150 mg 2-14 capsule by ity of capsule 00:00: mouth in [address] morning [place] and 1 capsule at noon and 1 capsule in the evening. pregabalin 2021-09 Yes [id number] 150mg Take 1 [facility] 150 mg 2-14 capsule by ity of capsule 00:00: mouth in [address] morning [place] and 1 capsule at noon and 1 capsule in the evening. pregabalin 2021-09 Yes [id number] 150mg Take 1 [facility] 150 mg 2-14 capsule by ity of capsule 00:00: mouth in [address] morning [place] and 1 capsule at noon and 1 capsule in the evening. pregabalin 2021-09 Yes [id number] 150mg Take 1 [facility] 150 mg 2-14 capsule by ity of capsule 00:00: mouth in [address] morning [place] and 1 capsule at noon and 1 capsule in the evening. pregabalin 2021-09 Yes [id number] 150mg Take 1 [facility] 150 mg 2-14 capsule by ity of capsule 00:00: mouth in [address] morning [place] and 1 capsule at noon and 1 capsule in the evening. pregabalin 2021-09 Yes [id number] 150mg Take 1 [facility] 150 mg 2-14 capsule by ity of capsule 00:00: mouth in [place] 00 the Medical morning Branch and 1 capsule at noon and 1 capsule in the evening. pregabalin 2021-09 Yes [id number] 150mg Take 1 [facility] 150 mg 2-14 capsule by ity of capsule 00:00: mouth in [place] 00 the Medical morning Branch and 1 capsule at noon and 1 capsule in the evening. pregabalin 2021-09 Yes [id number] 150mg Take 1 [facility] 150 mg 2-14 capsule by ity of capsule 00:00: mouth in [place] 00 the Medical morning Branch and 1 capsule at noon and 1 capsule in the evening. pregabalin 2021-09 Yes [id number] 150mg Take 1 [facility] 150 mg 2-14 capsule by ity of capsule 00:00: mouth in [place] 00 the Medical morning Branch and 1 capsule at noon and 1 capsule in the evening. pregabalin 2021-09 Yes [id number] 150mg Take 1 [facility] 150 mg 2-14 capsule by ity of capsule 00:00: mouth in [place] [address] the [facility] morning [place] and 1 capsule at noon and 1 capsule in the evening. pregabalin 2021-09 Yes [id number] 150mg Take 1 [facility] 150 mg 2-14 capsule by ity of capsule 00:00: mouth in [place] 00 the Medical morning [place] and 1 capsule at noon and 1 capsule in the evening. pregabalin 2021-09- No [id number] 150mg Take 1 [facility] 150 mg 2-14 -24 capsule by ity of capsule 00:00: 00:00 mouth in [place] 00 :00 the [facility] morning [place] and 1 capsule at noon and 1 capsule in the evening. pregabalin 2021-09- No [id number] 150mg Take 1 [facility] 150 mg 2-14 -24 capsule by ity of capsule 00:00: 00:00 mouth in [place] 00 :00 the Medical morning Branch and 1 capsule at noon and 1 capsule in the evening. pregabalin 2021-09- No [id number] 150mg Take 1 [facility] 150 mg 2-14 -24 capsule by ity of capsule 00:00: 00:00 mouth in [place] 00 :00 the Medical morning Branch and 1 capsule at noon and 1 capsule in the evening. montelukast 2021-09 Yes [id number] 10mg Take 1 Univers (SINGULAIR) 2-09 tablet by ity of 10 mg 00:00: mouth in [place] tablet 00 the Medical morning. [facility] 2021-09 Yes [id number] 10mg Take 1 Univers (SINGULAIR) 2-09 tablet by ity of 10 mg 00:00: mouth in [place] tablet 00 the Medical morning. [facility] 2021-09 Yes [id number] 10mg Take 1 Univers (SINGULAIR) 2-09 tablet by ity of 10 mg 00:00: mouth in [place] tablet 00 the Medical morning. [facility] 2021-09 Yes [id number] 10mg Take 1 Univers (SINGULAIR) 2-09 tablet by ity of 10 mg 00:00: mouth in [place] tablet 00 the Medical morning. [facility] 2021-09 Yes [id number] 10mg Take 1 [facility] (SINGULAIR) 2-09 tablet by ity of 10 mg 00:00: mouth in [place] tablet 00 the Medical morning. [facility] 2021-09 Yes [id number] 10mg Take 1 [facility] (SINGULAIR) 2-09 tablet by ity of 10 mg 00:00: mouth in [place] tablet 00 the Medical morning. [facility] 2021-09 Yes [id number] 10mg Take 1 Univers (SINGULAIR) 2-09 tablet by ity of 10 mg 00:00: mouth in [place] tablet 00 the Medical morning. [facility] 2021-09 Yes [id number] 10mg Take 1 Univers (SINGULAIR) 2-09 tablet by ity of 10 mg 00:00: mouth in [place] tablet 00 the Medical morning. [facility] 2021-09 Yes [id number] 10mg Take 1 Univers (SINGULAIR) 2-09 tablet by ity of 10 mg 00:00: mouth in [place] tablet 00 the Medical morning. [facility] 2021-09 Yes [id number] 10mg Take 1 Univers (SINGULAIR) 2-09 tablet by ity of 10 mg 00:00: mouth in [place] tablet 00 the Medical morning. [facility] 2021-09 Yes [id number] 10mg Take 1 Univers (SINGULAIR) 2-09 tablet by ity of 10 mg 00:00: mouth in [place] tablet 00 the Medical morning. [facility] 2021-09 Yes [id number] 10mg Take 1 Univers (SINGULAIR) 2-09 tablet by ity of 10 mg 00:00: mouth in [place] tablet 00 the Medical morning. Medical [facility] 2021-09 Yes [id number] 10mg Take 1 [facility] (SINGULAIR) 2-09 tablet by ity of 10 mg 00:00: mouth in [place] tablet 00 the Medical morning. [facility] 2021-09 Yes [id number] 10mg Take 1 [facility] (SINGULAIR) 2-09 tablet by ity of 10 mg 00:00: mouth in [place] tablet 00 the Medical morning. [facility] 2021-09 Yes [id number] 10mg Take 1 [facility] (SINGULAIR) 2-09 tablet by ity of 10 mg 00:00: mouth in [place] tablet 00 the Medical morning. [facility] 2021-09 Yes [id number] 10mg Take 1 [facility] (SINGULAIR) 2-09 tablet by ity of 10 mg 00:00: mouth in [place] tablet 00 the Medical morning. [facility] 2021-09 Yes [id number] 10mg Take 1 [facility] (SINGULAIR) 2-09 tablet by ity of 10 mg 00:00: mouth in [place] tablet 00 the Medical morning. [facility] 2021-09 Yes [id number] 10mg Take 1 [facility] (SINGULAIR) 2-09 tablet by ity of 10 mg 00:00: mouth in [place] tablet 00 the Medical morning. [facility] 2021-09 Yes [id number] 10mg Take 1 [facility] (SINGULAIR) 2-09 tablet by ity of 10 mg 00:00: mouth in [place] tablet 00 the Medical morning. [facility] 2021-09 Yes [id number] 10mg Take 1 [facility] (SINGULAIR) 2-09 tablet by ity of 10 mg 00:00: mouth in [place] tablet 00 the Medical morning. [facility] 2021-09 Yes [id number] 10mg Take 1 [facility] (SINGULAIR) 2-09 tablet by ity of 10 mg 00:00: mouth in [place] tablet 00 the Medical morning. [facility] 2021-09 Yes [id number] 10mg Take 1 [facility] (SINGULAIR) 2-09 tablet by ity of 10 mg 00:00: mouth in [place] tablet 00 the Medical morning. [facility] [id number] 10mg Take 1 [facility] (SINGULAIR) 2-09 tablet by ity of 10 mg 00:00: mouth in [place] tablet 00 the Medical morning. [facility] 2021-09 Yes [id number] 10mg Take 1 [facility] (SINGULAIR) 2-09 tablet by ity of 10 mg 00:00: mouth in [place] tablet 00 the Medical morning. [facility] [id number] 10mg Take 1 [facility] (SINGULAIR) 2-09 tablet by ity of 10 mg 00:00: mouth in [place] tablet 00 the Medical morning. [facility] 2021-09 Yes [id number] 10mg Take 1 [facility] (SINGULAIR) 2-09 tablet by ity of 10 mg 00:00: mouth in [place] tablet 00 the Medical morning. [facility] 2021-09 Yes [id number] 10mg Take 1 [facility] (SINGULAIR) 2-09 tablet by ity of 10 mg 00:00: mouth in [place] tablet 00 the Medical morning. [facility] 2021-09 Yes [id number] 10mg Take 1 [facility] (SINGULAIR) 2-09 tablet by ity of 10 mg 00:00: mouth in [place] tablet 00 the Medical morning. [facility] 2021-09 Yes [id number] 10mg Take 1 [facility] (SINGULAIR) 2-09 tablet by ity of 10 mg 00:00: mouth in [place] tablet 00 the Medical morning. [facility] [id number] 10mg Take 1 [facility] (SINGULAIR) 2-09 tablet by ity of 10 mg 00:00: mouth in [place] tablet 00 the Medical morning. [facility] Yes [id number] 10mg Take 1 [facility] (SINGULAIR) 2-09 tablet by ity of 10 mg 00:00: mouth in [place] tablet 00 the Medical morning. [place] famotidine 2021-09 Yes TAKE 1 Unive rs [...] FOR Medical 7 DAYS Branch levoFLOXaci 2021-09- TAKE 1 Uni vers n 500 mg 10-28 TABLET BY ity o f tablet 00:00: 00:[place] 00 :[place] DAILY FOR Medical 7 DAYS Branch CYANOCOBALA 2021-09 Yes [id number] INJECT 1ML [facility] MIN 1,000 1-30 INTRAMUSCU ity of mcg/mL 00:00: LARLY [place] injection 00 EVERY TWO Medic al WEEKS Branch CYANOCOBALA 2021-09 Yes [id number] INJECT 1ML [facility] MIN 1,000 1-30 INTRAMUSCU ity of mcg/mL 00:00: LARLY [place] injection 00 EVERY TWO Medic al WEEKS Branch CYANOCOBALA 2021-09 Yes [id number] INJECT 1ML [facility] MIN 1,000 1-30 INTRAMUSCU ity of mcg/mL 00:00: LARLY [place] injection 00 EVERY TWO Medic al WEEKS Branch CYANOCOBALA 2021-09 Yes [id number] INJECT 1ML [facility] MIN 1,000 1-30 INTRAMUSCU ity of mcg/mL 00:00: LARLY [place] injection 00 EVERY TWO Medic al WEEKS Branch CYANOCOBALA 2021-09 Yes [id number] INJECT 1ML [facility] MIN 1,000 1-30 INTRAMUSCU ity of mcg/mL 00:00: LARLY [place] injection 00 EVERY TWO Medic al WEEKS Branch CYANOCOBALA 2021-09 Yes [id number] INJECT 1ML [facility] MIN 1,000 1-30 INTRAMUSCU ity of mcg/mL 00:00: LARLY [place] injection 00 EVERY TWO Medic al WEEKS Branch CYANOCOBALA 2021-09 Yes [id number] INJECT 1ML [facility] MIN 1,000 1-30 INTRAMUSCU ity of mcg/mL 00:00: LARLY [place] injection 00 EVERY TWO Medic al WEEKS Branch CYANOCOBALA 2021-09 Yes [id number] INJECT 1ML [facility] MIN 1,000 1-30 INTRAMUSCU ity of mcg/mL 00:00: LARLY [place] injection 00 EVERY TWO Medic al WEEKS Branch CYANOCOBALA 2021-09 Yes [id number] INJECT 1ML [facility] MIN 1,000 1-30 INTRAMUSCU ity of mcg/mL 00:00: LARLY [place] injection 00 EVERY TWO Medic al WEEKS Branch CYANOCOBALA 2021-09 Yes [id number] INJECT 1ML [facility] MIN 1,000 1-30 INTRAMUSCU ity of mcg/mL 00:00: LARLY [place] injection 00 EVERY TWO Medic al WEEKS Branch CYANOCOBALA 2021-09 Yes [id number] INJECT 1ML [facility] MIN 1,000 1-30 INTRAMUSCU ity of mcg/mL 00:00: LARLY [place] injection 00 EVERY TWO Medic al WEEKS Branch CYANOCOBALA 2021-09 Yes [id number] INJECT 1ML [facility] MIN 1,000 1-30 INTRAMUSCU ity of mcg/mL 00:00: LARLY [place] injection 00 EVERY TWO Medic al WEEKS Branch CYANOCOBALA 2021-09 Yes [id number] INJECT 1ML [facility] MIN 1,000 1-30 INTRAMUSCU ity of mcg/mL 00:00: LARLY [place] injection 00 EVERY TWO Medic al WEEKS Branch CYANOCOBALA 2021-09 Yes [id number] INJECT 1ML [facility] MIN 1,000 1-30 INTRAMUSCU ity of mcg/mL 00:00: LARLY [place] injection 00 EVERY TWO Medic al WEEKS Branch CYANOCOBALA 2021-09 Yes [id number] INJECT 1ML [facility] MIN 1,000 1-30 INTRAMUSCU ity of mcg/mL 00:00: LARLY [place] injection 00 EVERY TWO Medic al WEEKS Branch CYANOCOBALA 2021-09 Yes [id number] INJECT 1ML [facility] MIN 1,000 1-30 INTRAMUSCU ity of mcg/mL 00:00: LARLY [place] injection 00 EVERY TWO Medic al WEEKS Branch CYANOCOBALA 2021-09 Yes [id number] INJECT 1ML [facility] MIN 1,000 1-30 INTRAMUSCU ity of mcg/mL 00:00: LARLY [place] injection 00 EVERY TWO Medic al WEEKS Branch CYANOCOBALA 2021-09 Yes [id number] INJECT 1ML [facility] MIN 1,000 1-30 INTRAMUSCU ity of mcg/mL 00:00: LARLY [place] injection 00 EVERY TWO Medic al WEEKS Branch CYANOCOBALA 2021-09 Yes [id number] INJECT 1ML [facility] MIN 1,000 1-30 INTRAMUSCU ity of mcg/mL 00:00: LARLY [place] injection 00 EVERY TWO Medic al WEEKS Branch CYANOCOBALA 2021-09 Yes [id number] INJECT 1ML [facility] MIN 1,000 1-30 INTRAMUSCU ity of mcg/mL 00:00: LARLY [place] injection 00 EVERY TWO Medic al WEEKS Branch CYANOCOBALA 2021-09 Yes [id number] INJECT 1ML [facility] MIN 1,000 1-30 INTRAMUSCU ity of mcg/mL 00:00: LARLY [place] injection 00 EVERY TWO Medic al WEEKS Branch CYANOCOBALA 2021-09 Yes [id number] INJECT 1ML [facility] MIN 1,000 1-30 INTRAMUSCU ity of mcg/mL 00:00: LARLY [place] injection 00 EVERY TWO Medic al WEEKS Branch CYANOCOBALA 2021-09 Yes [id number] INJECT 1ML [facility] MIN 1,000 1-30 INTRAMUSCU ity of mcg/mL 00:00: LARLY [place] injection 00 EVERY TWO Medic al WEEKS Branch CYANOCOBALA 2021-09 Yes [id number] INJECT 1ML [facility] MIN 1,000 1-30 INTRAMUSCU ity of mcg/mL 00:00: LARLY [place] injection 00 EVERY TWO Medic al WEEKS Branch CYANOCOBALA 2021-09 Yes [id number] INJECT 1ML [facility] MIN 1,000 1-30 INTRAMUSCU ity of mcg/mL 00:00: LARLY [place] injection 00 EVERY TWO Medic al WEEKS Branch CYANOCOBALA 2021-09 Yes [id number] INJECT 1ML [facility] MIN 1,000 1-30 INTRAMUSCU ity of mcg/mL 00:00: LARLY [place] injection 00 EVERY TWO Medic al WEEKS Branch CYANOCOBALA 2021-09 Yes [id number] INJECT 1ML [facility] MIN 1,000 1-30 INTRAMUSCU ity of mcg/mL 00:00: LARLY [place] injection 00 EVERY TWO Medic al WEEKS Branch CYANOCOBALA 2021-09 Yes [id number] INJECT 1ML [facility] MIN 1,000 1-30 INTRAMUSCU ity of mcg/mL 00:00: LARLY [place] injection 00 EVERY TWO Medic al WEEKS Branch CYANOCOBALA 2021-09 Yes [id number] INJECT 1ML [facility] MIN 1,000 1-30 INTRAMUSCU ity of mcg/mL 00:00: LARLY [place] injection 00 EVERY TWO Medic al WEEKS Branch CYANOCOBALA 2021-09 Yes [id number] INJECT 1ML [facility] MIN 1,000 1-30 INTRAMUSCU ity of mcg/mL 00:00: LARLY [place] injection 00 EVERY TWO Medic al WEEKS Branch CYANOCOBALA 2021-09 Yes [id number] INJECT 1ML [facility] MIN 1,000 1-30 INTRAMUSCU ity of mcg/mL 00:00: LARLY [place] injection 00 EVERY TWO Medic al WEEKS Branch CYANOCOBALA 2021-09 Yes [id number] INJECT 1ML [facility] MIN 1,000 1-30 INTRAMUSCU [...] EVERY 12 Medical HOURS Branch NEEDED ondansetron 2022-1 Yes TAKE 1 Univ ers 4 mg tablet 1-22 TABLET BY ity of 00:00: MOUTH EVERY 12 Medical HOURS Branch NEEDED ondansetron 2022-1 Yes TAKE 1 Univ ers 4 mg tablet 1-22 TABLET BY ity of 00:00: MOUTH EVERY 12 Medical HOURS Branch NEEDED ondansetron 2022-1 Yes TAKE 1 [facility] ers 4 mg tablet 1-22 TABLET BY ity of 00:00: MOUTH EVERY 12 Medical HOURS Branch NEEDED ondansetron 2-1 Yes TAKE 1 [facility] ers 4 mg tablet 1-22 TABLET BY ity of 00:00: [facility] EVERY 12 Medical HOURS Branch NEEDED ondansetron 2-1 Yes TAKE 1 Univ ers 4 mg tablet 1-22 TABLET BY ity of 00:00: [facility] EVERY 12 Medical HOURS Branch NEEDED ondansetron 2-1 Yes TAKE 1 Univ ers 4 mg tablet 1-22 TABLET BY ity of 00:00: [facility] EVERY 12 Medical HOURS Branch NEEDED ondansetron 2-1 Yes TAKE 1 Univ ers 4 mg tablet 1-22 TABLET BY ity of 00:00: [facility] EVERY 12 Medical HOURS Branch NEEDED ondansetron 2-1 Yes TAKE 1 [facility] ers 4 mg tablet 1-22 TABLET BY ity of 00:00: [facility] EVERY 12 Medical HOURS Branch NEEDED ondansetron 2-1 Yes TAKE 1 [facility] ers 4 mg tablet 1-22 TABLET BY ity of 00:00: [facility] EVERY 12 Medical HOURS Branch NEEDED ondansetron 2-1 Yes TAKE 1 [facility] ers 4 mg tablet 1-22 TABLET BY ity of 00:00: MOUTH EVERY 12 Medical HOURS Branch NEEDED ondansetron 2-1 Yes TAKE 1 [facility] ers 4 mg tablet 1-22 TABLET BY ity of 00:00: [facility] EVERY 12 Medical HOURS Branch NEEDED ondansetron 2-1 Yes TAKE 1 [facility] ers 4 mg tablet 1-22 TABLET BY ity of 00:00: [facility] EVERY 12 Medical HOURS Branch NEEDED naproxen 2-1 Yes 500mg Take 500 Univ ers 500 mg 1-18 mg by ity of tablet 00:00: mouth in 00 the Medical morning Branch and 500 mg in the evening. Take with meals. naproxen 2-1 Yes 500mg Take 500 Univ ers 500 mg 1-18 mg by ity of tablet 00:00: mouth in [place] 00 the Medical morning Branch and 500 mg in the evening. Take with meals. naproxen 2021-1 Yes 500mg Take 500 Univ ers 500 mg 1-18 mg by ity of tablet 00:00: mouth in [place] 00 the Medical morning Branch and 500 mg in the evening. Take with meals. naproxen 2021-1 Yes 500mg Take 500 [facility] ers 500 mg 1-18 mg by ity of tablet 00:00: mouth in [place] 00 the Medical morning Branch and 500 mg in the evening. Take with meals. naproxen 2021-1 Yes 500mg Take 500 [facility] ers 500 mg 1-18 mg by ity of tablet 00:00: mouth in [place] 00 the Medical morning Branch and 500 mg in the evening. Take with meals. naproxen 2021-1 Yes 500mg Take 500 [facility] ers 500 mg 1-18 mg by ity of tablet 00:00: mouth in [place] 00 the Medical morning Branch and 500 mg in the evening. Take with meals. naproxen 2021-1 Yes 500mg Take 500 [facility] ers 500 mg 1-18 mg by ity of tablet 00:00: mouth in [place] 00 the Medical morning Branch and 500 mg in the evening. Take with meals. naproxen 2021-2022- No 500mg Take 500 Uni vers 500 mg 1-18 01-23 mg by ity of tablet 00:00: 00:00 mouth in [place] 00 :00 the Medical morning Branch and 500 mg in the evening. Take with meals. naproxen 2021-2022- No 500mg Take 500 Uni vers 500 mg 1-18 01-23 mg by ity of tablet 00:00: 00:00 mouth in [place] 00 :00 the Medical morning Branch and 500 mg in the evening. Take with meals. naproxen 2021-1 3- No 500mg Take 500 Uni vers 500 mg 1-18 01-23 mg by ity of tablet 00:00: 00:00 mouth in [place] 00 :00 the Medical morning Branch and 500 mg in the evening. Take with meals. levothyroxi 2021- Yes [id number] 50ug Take 1 [facility] ne 50 mcg 1-03 tablet by ity o f tablet 00:00: mouth [place] 00 every Medical morning. Branch levothyroxi 2021-09 Yes [id number] 50ug Take 1 [facility] ne 50 mcg 1-03 tablet by ity o f tablet 00:00: mouth [place] 00 every Medical morning. Branch levothyroxi 2021-09 Yes [id number] 50ug Take 1 [facility] ne 50 mcg 1-03 tablet by ity o f tablet 00:00: mouth [place] 00 every Medical morning. Branch levothyroxi 2021-09 Yes [id number] 50ug Take 1 [facility] ne 50 mcg 1-03 tablet by ity o f tablet 00:00: mouth [place] 00 every Medical morning. Branch levothyroxi 2021-09 Yes [id number] 50ug Take 1 [facility] ne 50 mcg 1-03 tablet by ity o f tablet 00:00: mouth [place] 00 every Medical morning. Branch levothyroxi 2021-09 Yes [id number] 50ug Take 1 [facility] ne 50 mcg 1-03 tablet by ity o f tablet 00:00: mouth [place] 00 every Medical morning. Branch levothyroxi 2021-09 Yes [id number] 50ug Take 1 [facility] ne 50 mcg 1-03 tablet by ity o f tablet 00:00: mouth [place] 00 every Medical morning. Branch levothyroxi 2021-09 Yes [id number] 50ug Take 1 [facility] ne 50 mcg 1-03 tablet by ity o f tablet 00:00: mouth [place] 00 every Medical morning. Branch levothyroxi 2021-09 Yes [id number] 50ug Take 1 [facility] ne 50 mcg 1-03 tablet by ity o f tablet 00:00: mouth [place] 00 every Medical morning. Branch levothyroxi 2021-09 Yes [id number] 50ug Take 1 [facility] ne 50 mcg 1-03 tablet by ity o f tablet 00:00: mouth [place] 00 every Medical morning. Branch levothyroxi 2021-09 Yes [id number] 50ug Take 1 [facility] ne 50 mcg 1-03 tablet by ity o f tablet 00:00: mouth [place] 00 every Medical morning. Branch levothyroxi 2021-09 Yes [id number] 50ug Take 1 [facility] ne 50 mcg 1-03 tablet by ity o f tablet 00:00: mouth [place] 00 every Medical morning. Branch levothyroxi 2021-09 Yes [id number] 50ug Take 1 [facility] ne 50 mcg 1-03 tablet by ity o f tablet 00:00: mouth [place] 00 every Medical morning. Branch levothyroxi 2021-09 Yes [id number] 50ug Take 1 [facility] ne 50 mcg 1-03 tablet by ity o f tablet 00:00: mouth [place] 00 every Medical morning. Branch levothyroxi 2021-09 Yes [id number] 50ug Take 1 [facility] ne 50 mcg 1-03 tablet by ity o f tablet 00:00: mouth [place] 00 every Medical morning. Branch levothyroxi 2021-09 Yes [id number] 50ug Take 1 [facility] ne 50 mcg 1-03 tablet by ity o f tablet 00:00: mouth [place] 00 every Medical morning. Branch levothyroxi 2021-09 Yes [id number] 50ug Take 1 [facility] ne 50 mcg 1-03 tablet by ity o f tablet 00:00: mouth [place] 00 every Medical morning. Branch levothyroxi 2021-09 Yes [id number] 50ug Take 1 [facility] ne 50 mcg 1-03 tablet by ity o f tablet 00:00: mouth [place] 00 every Medical morning. Branch levothyroxi 2021-09 Yes [id number] 50ug Take 1 [facility] ne 50 mcg 1-03 tablet by ity o f tablet 00:00: mouth [place] 00 every Medical morning. Branch levothyroxi 2021-09 Yes [id number] 50ug Take 1 [facility] ne 50 mcg 1-03 tablet by ity o f tablet 00:00: mouth [place] 00 every Medical morning. Branch levothyroxi 2021-09 Yes [id number] 50ug Take 1 [facility] ne 50 mcg 1-03 tablet by ity o f tablet 00:00: mouth [place] 00 every Medical morning. Branch levothyroxi 2021-09 Yes [id number] 50ug Take 1 [facility] ne 50 mcg 1-03 tablet by ity o f tablet 00:00: mouth [place] 00 every Medical morning. Branch levothyroxi 2021-09 Yes [id number] 50ug Take 1 [facility] ne 50 mcg 1-03 tablet by ity o f tablet 00:00: mouth [place] 00 every Medical morning. Branch levothyroxi 2021-09 Yes [id number] 50ug Take 1 [facility] ne 50 mcg 1-03 tablet by ity o f tablet 00:00: mouth [place] 00 every Medical morning. Branch levothyroxi 2021-09 Yes [id number] 50ug Take 1 [facility] ne 50 mcg 1-03 tablet by ity o f tablet 00:00: mouth [place] 00 every Medical morning. Branch levothyroxi 2021-09 Yes [id number] 50ug Take 1 [facility] ne 50 mcg 1-03 tablet by ity o f tablet 00:00: mouth [place] 00 every Medical morning. Branch levothyroxi 2021-09 Yes [id number] 50ug Take 1 [facility] ne 50 mcg 1-03 tablet by ity o f tablet 00:00: mouth [place] 00 every Medical morning. Branch levothyroxi 2021-09 Yes [id number] 50ug Take 1 [facility] ne 50 mcg 1-03 tablet by ity o f tablet 00:00: mouth [place] 00 every Medical morning. Branch levothyroxi 2021-09 Yes [id number] 50ug Take 1 [facility] ne 50 mcg 1-03 tablet by ity o f tablet 00:00: mouth [place] 00 every Medical morning. Branch levothyroxi 2021-09 Yes [id number] 50ug Take 1 [facility] ne 50 mcg 1-03 tablet by ity o f tablet 00:00: mouth [place] 00 every Medical morning. Branch levothyroxi 2021-09 Yes [id number] 50ug Take 1 [facility] ne 50 mcg 1-03 tablet by ity o f tablet 00:00: mouth [place] 00 every Medical morning. Branch levothyroxi 2021-09 Yes [id number] 50ug Take 1 [facility] ne 50 mcg 1-03 tablet by ity o f tablet 00:00: mouth [place] 00 every Medical morning. Branch levothyroxi 2021-09 Yes [id number] 50ug Take 1 [facility] ne 50 mcg 1-03 tablet by ity o f tablet 00:00: mouth [place] 00 every Medical morning. Branch levothyroxi 2021-09 Yes [id number] 50ug Take 1 [facility] ne 50 mcg 1-03 tablet by ity o f tablet 00:00: mouth [place] 00 every Medical morning. Branch levothyroxi 2021-09 Yes [id number] 50ug Take 1 [facility] ne 50 mcg 1-03 tablet by ity o f tablet 00:00: mouth [place] 00 every Medical morning. Branch levothyroxi 2021-09 Yes [id number] 50ug Take 1 [facility] ne 50 mcg 1-03 tablet by ity o f tablet 00:00: mouth [place] 00 every Medical morning. Branch levothyroxi 2021-09 Yes [id number] 50ug Take 1 [facility] ne 50 mcg 1-03 tablet by ity o f tablet 00:00: mouth [place] 00 every Medical morning. Branch levothyroxi 2021-09 Yes [id number] 50ug Take 1 [facility] ne 50 mcg 1-03 tablet by ity o f tablet 00:00: mouth [place] 00 every Medical morning. Branch levothyroxi 2021-09 Yes [id number] 50ug Take 1 [facility] ne 50 mcg [...] ORAL) 37 Medical Branch diltiazem 2021-09 Yes [id number] 120mg Take 1 U nivers 120 mg 24 1-01 capsule by ity of hr capsule 00:00: mouth in [place] 00 the Medical morning Branch and 1 capsule in the evening. fluticasone 2021-09 Yes [id number] 2{puff} Inhale 2 [facility] propionate 1-01 Puffs ity of (FLOVENT 00:00: every 12 [place] HFA) 110 00 (twelve) Medical mcg/actuati hours. Branch on inhaler Rinse mouth after each use. levothyroxi 2021-09 Yes [id number] 50ug Take 1 [facility] ne 50 mcg 1-01 tablet by ity o f tablet 00:00: mouth [place] 00 every Medical morning. Branch metformin 2021-09 Yes [id number] 500mg Take 1 U nivers ER 500 mg 1-01 tablet by ity o f 24 hr 00:00: mouth [place] tablet 00 daily with Medical breakfast. Branch pantoprazol 2021-09 Yes [id number] 40mg Take 1 [facility] e 40 mg EC 1-01 tablet by ity of tablet 00:00: mouth in [place] 00 the Medical morning. Branch pregabalin 2021-09 Yes [id number] 150mg Take 1 [facility] 150 mg 1-01 capsule by ity of capsule 00:00: mouth in [place] 00 the Medical morning Branch and 1 capsule at noon and 1 capsule in the evening. rosuvastati 2021-09 Yes [id number] 10mg Take 1 [facility] n 10 mg 1-01 tablet by ity of tablet 00:00: mouth at [place] 00 bedtime. Medical Branch SUMAtriptan 2021-09 Yes [id number] 50mg Take 1 [facility] 50 mg 1-01 tablet by ity of tablet 00:00: mouth as [place] 00 needed for Medical Migraine. Branch diltiazem 2021-09 Yes [id number] 120mg Take 1 U nivers 120 mg 24 1-01 capsule by ity of hr capsule 00:00: mouth in [place] 00 the Medical morning Branch and 1 capsule in the evening. fluticasone 2021-09 Yes [id number] 2{puff} Inhale 2 [facility] propionate 1-01 Puffs ity of (FLOVENT 00:00: every 12 [place] [facility]) 110 00 (twelve) Medical mcg/actuati hours. Branch on inhaler Rinse mouth after each use. levothyroxi 2021-09 Yes [id number] 50ug Take 1 [facility] ne 50 mcg 1-01 tablet by ity o f tablet 00:00: mouth [place] 00 every Medical morning. Branch metformin 2021-09 Yes [id number] 500mg Take 1 U nivers ER 500 mg 1-01 tablet by ity o f 24 hr 00:00: mouth [place] tablet 00 daily with Medical breakfast. Branch pantoprazol 2021-09 Yes [id number] 40mg Take 1 [facility] e 40 mg EC 1-01 tablet by ity of tablet 00:00: mouth in [place] 00 the Medical morning. Branch pregabalin 2021-09 Yes [id number] 150mg Take 1 [facility] 150 mg 1-01 capsule by ity of capsule 00:00: mouth in [place] 00 the Medical morning Branch and 1 capsule at noon and 1 capsule in the evening. rosuvastati 2021-09 Yes [id number] 10mg Take 1 [facility] n 10 mg 1-01 tablet by ity of tablet 00:00: mouth at [place] 00 bedtime. Medical Branch SUMAtriptan 2021-09 Yes [id number] 50mg Take 1 [facility] 50 mg 1-01 tablet by ity of tablet 00:00: mouth as [place] 00 needed for Medical Migraine. Branch diltiazem 2021-09 Yes [id number] 120mg Take 1 U nivers 120 mg 24 1-01 capsule by ity of hr capsule 00:00: mouth in [place] 00 the Medical morning Branch and 1 capsule in the evening. fluticasone 2021-09 Yes [id number] 2{puff} Inhale 2 [facility] propionate 1-01 Puffs ity of (FLOVENT 00:00: every 12 [place] HFA) 110 00 (twelve) Medical mcg/actuati hours. Branch on inhaler Rinse mouth after each use. metformin 2021-09 Yes [id number] 500mg Take 1 U nivers ER 500 mg 1-01 tablet by ity o f 24 hr 00:00: mouth [place] tablet 00 daily with Medical breakfast. Branch pantoprazol 2021-09 Yes [id number] 40mg Take 1 [facility] e 40 mg EC 1-01 tablet by ity of tablet 00:00: mouth in [place] 00 the Medical morning. Branch pregabalin 2021-09 Yes [id number] 150mg Take 1 [facility] 150 mg 1-01 capsule by ity of capsule 00:00: mouth in [place] 00 the Medical morning Branch and 1 capsule at noon and 1 capsule in the evening. rosuvastati 2021-09 Yes [id number] 10mg Take 1 [facility] n 10 mg 1-01 tablet by ity of tablet 00:00: mouth at [place] 00 bedtime. Medical Branch SUMAtriptan 2021-09 Yes [id number] 50mg Take 1 [facility] 50 mg 1-01 tablet by ity of tablet 00:00: mouth as [place] 00 needed for Medical Migraine. Branch diltiazem 2021-09 Yes [id number] 120mg Take 1 U nivers 120 mg 24 1-01 capsule by ity of hr capsule 00:00: mouth in [facility] as 00 the Medical morning Branch and 1 capsule in the evening. fluticasone 2021-09 Yes [id number] 2{puff} Inhale 2 [facility] propionate 1-01 Puffs ity of (FLOVENT 00:00: every 12 [place] HFA) 110 00 (twelve) Medical mcg/actuati hours. Branch on inhaler Rinse mouth after each use. metformin 2021-09 Yes [id number] 500mg Take 1 U nivers ER 500 mg 1-01 tablet by ity o f 24 hr 00:00: mouth [place] tablet 00 daily with Medical breakfast. Branch pantoprazol 2021-09 Yes [id number] 40mg Take 1 [facility] e 40 mg EC 1-01 tablet by ity of tablet 00:00: mouth in [place] 00 the Medical morning. Branch pregabalin 2021-09 Yes [id number] 150mg Take 1 [facility] 150 mg 1-01 capsule by ity of capsule 00:00: mouth in [place] 00 the Medical morning Branch and 1 capsule at noon and 1 capsule in the evening. rosuvastati 2021-09 Yes [id number] 10mg Take 1 [facility] n 10 mg 1-01 tablet by ity of tablet 00:00: mouth at [place] [id number] bedtime. Medical Branch SUMAtriptan 2021-09 Yes [id number] 50mg Take 1 [facility] 50 mg 1-01 tablet by ity of tablet 00:00: mouth as [place] 00 needed for Medical Migraine. Branch diltiazem 2021-09 Yes [id number] 120mg Take 1 U nivers 120 mg 24 1-01 capsule by ity of hr capsule 00:00: mouth in [place] as 00 the Medical morning Branch and 1 capsule in the evening. fluticasone 2021-09 Yes [id number] 2{puff} Inhale 2 [facility] propionate 1-01 Puffs ity of (FLOVENT 00:00: every 12 [place] HFA) 110 00 (twelve) Medical mcg/actuati hours. Branch on inhaler Rinse mouth after each use. metformin 2021-09 Yes [id number] 500mg Take 1 U nivers ER 500 mg 1-01 tablet by ity o f 24 hr 00:00: mouth [place] tablet 00 daily with Medical breakfast. Branch pantoprazol 2021-09 Yes [id number] 40mg Take 1 [facility] e 40 mg EC 1-01 tablet by ity of tablet 00:00: mouth in [place] 00 the Medical morning. Branch pregabalin 2021-09 Yes [id number] 150mg Take 1 [facility] 150 mg 1-01 capsule by ity of capsule 00:00: mouth in [place] 00 the Medical morning Branch and 1 capsule at noon and 1 capsule in the evening. rosuvastati 2021-09 Yes [id number] 10mg Take 1 [facility] n 10 mg 1-01 tablet by ity of tablet 00:00: mouth at [place] 00 bedtime. Medical Branch SUMAtriptan 2021-09 Yes [id number] 50mg Take 1 [facility] 50 mg 1-01 tablet by ity of tablet 00:00: mouth as [place] 00 needed for Medical Migraine. Branch diltiazem 2021-09 Yes [id number] 120mg Take 1 [facility] nivers 120 mg 24 1-01 capsule by ity of hr capsule 00:00: mouth in [facility] as 00 the Medical morning Branch and 1 capsule in the evening. fluticasone 2021-09 Yes [id number] 2{puff} Inhale 2 [facility] propionate 1-01 Puffs ity of (FLOVENT 00:00: every 12 [place] [facility]) 110 00 (twelve) Medical mcg/actuati hours. Branch on inhaler Rinse mouth after each use. metformin 2021-09 Yes [id number] 500mg Take 1 [facility] nivers ER 500 mg 1-01 tablet by ity o f 24 hr 00:00: mouth [place] tablet 00 daily with Medical breakfast. Branch pantoprazol 2021-09 Yes [id number] 40mg Take 1 [facility] e 40 mg EC 1-01 tablet by ity of tablet 00:00: mouth in [place] 00 the Medical morning. Branch pregabalin 2021-09 Yes [id number] 150mg Take 1 [facility] 150 mg 1-01 capsule by ity of capsule 00:00: mouth in [place] 00 the Medical morning Branch and 1 capsule at noon and 1 capsule in the evening. rosuvastati 2021-09 Yes [id number] 10mg Take 1 [facility] n 10 mg 1-01 tablet by ity of tablet 00:00: mouth at [place] 00 bedtime. Medical Branch SUMAtriptan 2021-09 Yes [id number] 50mg Take 1 [facility] 50 mg 1-01 tablet by ity of tablet 00:00: mouth as [place] 00 needed for Medical Migraine. Branch diltiazem 2021-09 Yes [id number] 120mg Take 1 [facility] nivers 120 mg 24 1-01 capsule by ity of hr capsule 00:00: mouth in [facility] as 00 the Medical morning Branch and 1 capsule in the evening. fluticasone 2021-09 Yes [id number] 2{puff} Inhale 2 [facility] propionate 1-01 Puffs ity of (FLOVENT 00:00: every 12 [place] [facility]) 110 00 (twelve) Medical mcg/actuati hours. Branch on inhaler Rinse mouth after each use. metformin 2021-09 Yes [id number] 500mg Take 1 [facility] nivers ER 500 mg 1-01 tablet by ity o f 24 hr 00:00: mouth [place] tablet 00 daily with Medical breakfast. Branch pantoprazol 2021-09 Yes [id number] 40mg Take 1 [facility] e 40 mg EC 1-01 tablet by ity of tablet 00:00: mouth in [place] 00 the Medical morning. Branch pregabalin 2021-09 Yes [id number] 150mg Take 1 [facility] 150 mg 1-01 capsule by ity of capsule 00:00: mouth in [place] 00 the Medical morning Branch and 1 capsule at noon and 1 capsule in the evening. rosuvastati 2021-09 Yes [id number] 10mg Take 1 [facility] n 10 mg 1-01 tablet by ity of tablet 00:00: mouth at [place] 00 bedtime. Medical Branch SUMAtriptan 2021-09 Yes [id number] 50mg Take 1 [facility] 50 mg 1-01 tablet by ity of tablet 00:00: mouth as [place] 00 needed for Medical Migraine. Branch diltiazem 2021-09 Yes [id number] 120mg Take 1 [facility] nivers 120 mg 24 1-01 capsule by ity of hr capsule 00:00: mouth in [place] as 00 the Medical morning Branch and 1 capsule in the evening. fluticasone 2021-09 Yes [id number] 2{puff} Inhale 2 [facility] propionate 1-01 Puffs ity of (FLOVENT 00:00: every 12 [place] [facility]) 110 00 (twelve) Medical mcg/actuati hours. Branch on inhaler Rinse mouth after each use. metformin 2021-09 Yes [id number] 500mg Take 1 [facility] nivers ER 500 mg 1-01 tablet by ity o f 24 hr 00:00: mouth [place] tablet 00 daily with Medical breakfast. Branch pantoprazol 2021-09 Yes [id number] 40mg Take 1 [facility] e 40 mg EC 1-01 tablet by ity of tablet 00:00: mouth in [place] 00 the Medical morning. Branch pregabalin 2021-09 Yes [id number] 150mg Take 1 [facility] 150 mg 1-01 capsule by ity of capsule 00:00: mouth in [place] 00 the Medical morning Branch and 1 capsule at noon and 1 capsule in the evening. rosuvastati 2021-09 Yes [id number] 10mg Take 1 [facility] n 10 mg 1-01 tablet by ity of tablet 00:00: mouth at [place] [address] bedtime. Medical Branch SUMAtriptan 2021-09 Yes [id number] 50mg Take 1 [facility] 50 mg 1-01 tablet by ity of tablet 00:00: mouth as [place] 00 needed for Medical Migraine. Branch diltiazem 2021-09 Yes [id number] 120mg Take 1 [facility] nivers 120 mg 24 1-01 capsule by ity of hr capsule 00:00: mouth in [place] as 00 the Medical morning Branch and 1 capsule in the evening. fluticasone 2021-09 Yes [id number] 2{puff} Inhale 2 [facility] propionate 1-01 Puffs ity of (FLOVENT 00:00: every 12 [place] [facility]FA) 110 00 (twelve) Medical mcg/actuati hours. Branch on inhaler Rinse mouth after each use. metformin 2021-09 Yes [id number] 500mg Take 1 [facility] nivers ER 500 mg 1-01 tablet by ity o f 24 hr 00:00: mouth [place] tablet 00 daily with Medical breakfast. Branch pantoprazol 2021-09 Yes [id number] 40mg Take 1 [facility] e 40 mg EC 1-01 tablet by ity of tablet 00:00: mouth in [place] 00 the Medical morning. Branch pregabalin 2021-09 Yes [id number] 150mg Take 1 [facility] 150 mg 1-01 capsule by ity of capsule 00:00: mouth in [place] 00 the Medical morning Branch and 1 capsule at noon and 1 capsule in the evening. rosuvastati 2021-09 Yes [id number] 10mg Take 1 [facility] n 10 mg 1-01 tablet by ity of tablet 00:00: mouth at [place] [address] bedtime. Medical Branch SUMAtriptan 2021-09 Yes [id number] 50mg Take 1 [facility] 50 mg 1-01 tablet by ity of tablet 00:00: mouth as [place] 00 needed for Medical Migraine. Branch diltiazem 2021-09 Yes [id number] 120mg Take 1 [facility] nivers 120 mg 24 1-01 capsule by ity of hr capsule 00:00: mouth in [place] [facility] 00 the Medical morning Branch and 1 capsule in the evening. fluticasone 2021-09 Yes [id number] 2{puff} Inhale 2 [facility] propionate 1-01 Puffs ity of (FLOVENT 00:00: every 12 [place] [facility]FA) 110 00 (twelve) Medical mcg/actuati hours. Branch on inhaler Rinse mouth after each use. metformin 2021-09 Yes [id number] 500mg Take 1 [facility] nivers ER 500 mg 1-01 tablet by ity o f 24 hr 00:00: mouth [place] tablet 00 daily with Medical breakfast. Branch pantoprazol 2021-09 Yes [id number] 40mg Take 1 [facility] e 40 mg EC 1-01 tablet by ity of tablet 00:00: mouth in [place] 00 the Medical morning. Branch pregabalin 2021-09 Yes [id number] 150mg Take 1 [facility] 150 mg 1-01 capsule by ity of capsule 00:00: mouth in [place] 00 the Medical morning Branch and 1 capsule at noon and 1 capsule in the evening. rosuvastati 2021-09 Yes [id number] 10mg Take 1 [facility] n 10 mg 1-01 tablet by ity of tablet 00:00: mouth at [place] 00 bedtime. Medical Branch SUMAtriptan 2021-09 Yes [id number] 50mg Take 1 [facility] 50 mg 1-01 tablet by ity of tablet 00:00: mouth as [place] 00 needed for Medical Migraine. Branch diltiazem 2021-09 Yes [id number] 120mg Take 1 [facility] nivers 120 mg 24 1-01 capsule by ity of hr capsule 00:00: mouth in [place] as 00 the Medical morning Branch and 1 capsule in the evening. fluticasone 2021-09 Yes [id number] 2{puff} Inhale 2 [facility] propionate 1-01 Puffs ity of (FLOVENT 00:00: every 12 [place] [facility]FA) 110 00 (twelve) Medical mcg/actuati hours. Branch on inhaler Rinse mouth after each use. metformin 2021-09 Yes [id number] 500mg Take 1 [facility] nivers ER 500 mg 1-01 tablet by ity o f 24 hr 00:00: mouth [place] tablet 00 daily with Medical breakfast. Branch pantoprazol 2021-09 Yes [id number] 40mg Take 1 [facility] e 40 mg EC 1-01 tablet by ity of tablet 00:00: mouth in [place] 00 the Medical morning. Branch pregabalin 2021-09 Yes [id number] 150mg Take 1 [facility] 150 mg 1-01 capsule by ity of capsule 00:00: mouth in [place] 00 the Medical morning Branch and 1 capsule at noon and 1 capsule in the evening. rosuvastati 2021-09 Yes [id number] 10mg Take 1 [facility] n 10 mg 1-01 tablet by ity of tablet 00:00: mouth at [place] 00 bedtime. Medical Branch SUMAtriptan 2021-09 Yes [id number] 50mg Take 1 [facility] 50 mg 1-01 tablet by ity of tablet 00:00: mouth as [place] 00 needed for Medical Migraine. Branch diltiazem 2021-09 Yes [id number] 120mg Take 1 [facility] nivers 120 mg 24 1-01 capsule by ity of hr capsule 00:00: mouth in [place] as 00 the Medical morning Branch and 1 capsule in the evening. fluticasone 2021-09 Yes [id number] 2{puff} Inhale 2 [facility] propionate 1-01 Puffs ity of (FLOVENT 00:00: every 12 [place] [facility]FA) 110 00 (twelve) Medical mcg/actuati hours. Branch on inhaler Rinse mouth after each use. metformin 2021-09 Yes [id number] 500mg Take 1 [facility] nivers ER 500 mg 1-01 tablet by ity o f 24 hr 00:00: mouth [place] tablet 00 daily with Medical breakfast. Branch pantoprazol 2021-09 Yes [id number] 40mg Take 1 [facility] e 40 mg EC 1-01 tablet by ity of tablet 00:00: mouth in [place] 00 the Medical morning. Branch pregabalin 2021-09 Yes [id number] 150mg Take 1 [facility] 150 mg 1-01 capsule by ity of capsule 00:00: mouth in [place] 00 the Medical morning Branch and 1 capsule at noon and 1 capsule in the evening. rosuvastati 2021-09 Yes [id number] 10mg Take 1 [facility] n 10 mg 1-01 tablet by ity of tablet 00:00: mouth at [place] [address] bedtime. Medical Branch SUMAtriptan 2021-09 Yes [id number] 50mg Take 1 [facility] 50 mg 1-01 tablet by ity of tablet 00:00: mouth as [place] 00 needed for Medical Migraine. Branch diltiazem 2021-09 Yes [id number] 120mg Take 1 [facility] nivers 120 mg 24 1-01 capsule by ity of hr capsule 00:00: mouth in [facility] as 00 the Medical morning Branch and 1 capsule in the evening. fluticasone 2021-09 Yes [id number] 2{puff} Inhale 2 [facility] propionate 1-01 Puffs ity of (FLOVENT 00:00: every 12 [place] [facility]FA) 110 00 (twelve) Medical mcg/actuati hours. Branch on inhaler Rinse mouth after each use. metformin 2021-09 Yes [id number] 500mg Take 1 U nivers ER 500 mg 1-01 tablet by ity o f 24 hr 00:00: mouth [place] tablet 00 daily with Medical breakfast. Branch pantoprazol 2021-09 Yes [id number] 40mg Take 1 [facility] e 40 mg EC 1-01 tablet by ity of tablet 00:00: mouth in [place] 00 the Medical morning. Branch pregabalin 2021-09 Yes [id number] 150mg Take 1 [facility] 150 mg 1-01 capsule by ity of capsule 00:00: mouth in [place] 00 the Medical morning Branch and 1 capsule at noon and 1 capsule in the evening. rosuvastati 2021-09 Yes [id number] 10mg Take 1 [facility] n 10 mg 1-01 tablet by ity of tablet 00:00: mouth at [place] 00 bedtime. Medical Branch SUMAtriptan 2021-09 Yes [id number] 50mg Take 1 [facility] 50 mg 1-01 tablet by ity of tablet 00:00: mouth as [place] 00 needed for Medical Migraine. Branch diltiazem 2021-09 Yes [id number] 120mg Take 1 [facility] nivers 120 mg 24 1-01 capsule by ity of hr capsule 00:00: mouth in [place] as 00 the Medical morning Branch and 1 capsule in the evening. fluticasone 2021-09 Yes [id number] 2{puff} Inhale 2 [facility] propionate 1-01 Puffs ity of (FLOVENT 00:00: every 12 [place] [facility]FA) 110 00 (twelve) Medical mcg/actuati hours. Branch on inhaler Rinse mouth after each use. metformin 2021-09 Yes [id number] 500mg Take 1 U nivers ER 500 mg 1-01 tablet by ity o f 24 hr 00:00: mouth [place] tablet 00 daily with Medical breakfast. Branch pantoprazol 2021-09 Yes [id number] 40mg Take 1 [facility] e 40 mg EC 1-01 tablet by ity of tablet 00:00: mouth in [place] 00 the Medical morning. Branch rosuvastati 2021-09 Yes [id number] 10mg Take 1 [facility] n 10 mg 1-01 tablet by ity of tablet 00:00: mouth at [place] 00 bedtime. Medical Branch SUMAtriptan 2021-09 Yes [id number] 50mg Take 1 [facility] 50 mg 1-01 tablet by ity of tablet 00:00: mouth as [place] 00 needed for Medical Migraine. Branch diltiazem 2021-09 Yes [id number] 120mg Take 1 [facility] nivers 120 mg 24 1-01 capsule by ity of hr capsule 00:00: mouth in [place] as 00 the Medical morning Branch and 1 capsule in the evening. fluticasone 2021-09 Yes [id number] 2{puff} Inhale 2 [facility] propionate 1-01 Puffs ity of (FLOVENT 00:00: every 12 [place] [facility]FA) 110 00 (twelve) Medical mcg/actuati hours. Branch on inhaler Rinse mouth after each use. metformin 2021-09 Yes [id number] 500mg Take 1 U nivers ER 500 mg 1-01 tablet by ity o f 24 hr 00:00: mouth [place] tablet 00 daily with Medical breakfast. Branch pantoprazol 2021-09 Yes [id number] 40mg Take 1 [facility] e 40 mg EC 1-01 tablet by ity of tablet 00:00: mouth in [place] 00 the Medical morning. Branch rosuvastati 2021-09 Yes [id number] 10mg Take 1 [facility] n 10 mg 1-01 tablet by ity of tablet 00:00: mouth at [place] [address] bedtime. Medical Branch SUMAtriptan 2021-09 Yes [id number] 50mg Take 1 [facility] 50 mg 1-01 tablet by ity of tablet 00:00: mouth as [place] 00 needed for Medical Migraine. Branch diltiazem 2021-09 Yes [id number] 120mg Take 1 [facility] nivers 120 mg 24 1-01 capsule by ity of hr capsule 00:00: mouth in [place] as 00 the Medical morning Branch and 1 capsule in the evening. fluticasone 2021-09 Yes [id number] 2{puff} Inhale 2 [facility] propionate 1-01 Puffs ity of (FLOVENT 00:00: every 12 [place] [facility]) 110 00 (twelve) Medical mcg/actuati hours. Branch on inhaler Rinse mouth after each use. metformin 2021-09 Yes [id number] 500mg Take 1 U nivers ER 500 mg 1-01 tablet by ity o f 24 hr 00:00: mouth [place] tablet 00 daily with Medical breakfast. Branch pantoprazol 2021-09 Yes [id number] 40mg Take 1 [facility] e 40 mg EC 1-01 tablet by ity of tablet 00:00: mouth in [place] 00 the Medical morning. Branch rosuvastati 2021-09 Yes [id number] 10mg Take 1 [facility] n 10 mg 1-01 tablet by ity of tablet 00:00: mouth at [place] [address] bedtime. Medical Branch SUMAtriptan 2021-09 Yes [id number] 50mg Take 1 [facility] 50 mg 1-01 tablet by ity of tablet 00:00: mouth as [place] 00 needed for Medical Migraine. Branch diltiazem 2021-09 Yes [id number] 120mg Take 1 [facility] nivers 120 mg 24 1-01 capsule by ity of hr capsule 00:00: mouth in [place] as 00 the Medical morning Branch and 1 capsule in the evening. fluticasone 2021-09 Yes [id number] 2{puff} Inhale 2 [facility] propionate 1-01 Puffs ity of (FLOVENT 00:00: every 12 [place] [facility]FA) 110 00 (twelve) Medical mcg/actuati hours. Branch on inhaler Rinse mouth after each use. metformin 2021-09 Yes [id number] 500mg Take 1 U nivers ER 500 mg 1-01 tablet by ity o f 24 hr 00:00: mouth [place] tablet 00 daily with Medical breakfast. Branch pantoprazol 2021-09 Yes [id number] 40mg Take 1 [facility] e 40 mg EC 1-01 tablet by ity of tablet 00:00: mouth in [place] 00 the Medical morning. Branch rosuvastati 2021-09 Yes [id number] 10mg Take 1 [facility] n 10 mg 1-01 tablet by ity of tablet 00:00: mouth at [place] 00 bedtime. Medical Branch SUMAtriptan 2021-09 Yes [id number] 50mg Take 1 [facility] 50 mg 1-01 tablet by ity of tablet 00:00: mouth as [place] 00 needed for Medical Migraine. Branch diltiazem 2021-09 Yes [id number] 120mg Take 1 U nivers 120 mg 24 1-01 capsule by ity of hr capsule 00:00: mouth in [place] as 00 the Medical morning Branch and 1 capsule in the evening. fluticasone 2021-09 Yes [id number] 2{puff} Inhale 2 [facility] propionate 1-01 Puffs ity of (FLOVENT 00:00: every 12 [place] [facility]FA) 110 00 (twelve) Medical mcg/actuati hours. Branch on inhaler Rinse mouth after each use. metformin 2021-09 Yes [id number] 500mg Take 1 U nivers ER 500 mg 1-01 tablet by ity o f 24 hr 00:00: mouth [place] tablet 00 daily with Medical breakfast. Branch pantoprazol 2021-09 Yes [id number] 40mg Take 1 [facility] e 40 mg EC 1-01 tablet by ity of tablet 00:00: mouth in [place] 00 the Medical morning. Branch rosuvastati 2021-09 Yes [id number] 10mg Take 1 [facility] n 10 mg 1-01 tablet by ity of tablet 00:00: mouth at [place] 00 bedtime. Medical Branch SUMAtriptan 2021-09 Yes [id number] 50mg Take 1 [facility] 50 mg 1-01 tablet by ity of tablet 00:00: mouth as [place] 00 needed for Medical Migraine. Branch diltiazem 2021-09 Yes [id number] 120mg Take 1 U nivers 120 mg 24 1-01 capsule by ity of hr capsule 00:00: mouth in [place] as 00 the Medical morning Branch and 1 capsule in the evening. fluticasone 2021-09 Yes [id number] 2{puff} Inhale 2 [facility] propionate 1-01 Puffs ity of (FLOVENT 00:00: every 12 [place] [facility]FA) 110 00 (twelve) Medical mcg/actuati hours. Branch on inhaler Rinse mouth after each use. metformin 2021-09 Yes [id number] 500mg Take 1 U nivers ER 500 mg 1-01 tablet by ity o f 24 hr 00:00: mouth [place] tablet 00 daily with Medical breakfast. Branch pantoprazol 2021-09 Yes [id number] 40mg Take 1 [facility] e 40 mg EC 1-01 tablet by ity of tablet 00:00: mouth in [place] 00 the Medical morning. Branch rosuvastati 2021-09 Yes [id number] 10mg Take 1 [facility] n 10 mg 1-01 tablet by ity of tablet 00:00: mouth at [place] 00 bedtime. Medical Branch SUMAtriptan 2021-09 Yes [id number] 50mg Take 1 [facility] 50 mg 1-01 tablet by ity of tablet 00:00: mouth as [place] 00 needed for Medical Migraine. Branch diltiazem 2021-09 Yes [id number] 120mg Take 1 [facility] nivers 120 mg 24 1-01 capsule by ity of hr capsule 00:00: mouth in [place] as 00 the Medical morning Branch and 1 capsule in the evening. fluticasone 2021-09 Yes [id number] 2{puff} Inhale 2 [facility] propionate 1-01 Puffs ity of (FLOVENT 00:00: every 12 [place] [facility]FA) 110 00 (twelve) Medical mcg/actuati hours. Branch on inhaler Rinse mouth after each use. metformin 2021-09 Yes [id number] 500mg Take 1 U nivers ER 500 mg 1-01 tablet by ity o f 24 hr 00:00: mouth [place] tablet 00 daily with Medical breakfast. Branch pantoprazol 2021-09 Yes [id number] 40mg Take 1 [facility] e 40 mg EC 1-01 tablet by ity of tablet 00:00: mouth in [place] 00 the Medical morning. Branch rosuvastati 2021-09 Yes [id number] 10mg Take 1 [facility] n 10 mg 1-01 tablet by ity of tablet 00:00: mouth at [place] 00 bedtime. Medical Branch SUMAtriptan 2021-09 Yes [id number] 50mg Take 1 [facility] 50 mg 1-01 tablet by ity of tablet 00:00: mouth as [place] 00 needed for Medical Migraine. Branch diltiazem 2021-09 Yes [id number] 120mg Take 1 U nivers 120 mg 24 1-01 capsule by ity of hr capsule 00:00: mouth in [place] as 00 the Medical morning Branch and 1 capsule in the evening. fluticasone 2021-09 Yes [id number] 2{puff} Inhale 2 [facility] propionate 1-01 Puffs ity of (FLOVENT 00:00: every 12 [place] [facility]FA) 110 00 (twelve) Medical mcg/actuati hours. Branch on inhaler Rinse mouth after each use. metformin 2021-09 Yes [id number] 500mg Take 1 U nivers ER 500 mg 1-01 tablet by ity o f 24 hr 00:00: mouth [place] tablet 00 daily with Medical breakfast. Branch pantoprazol 2021-09 Yes [id number] 40mg Take 1 [facility] e 40 mg EC 1-01 tablet by ity of tablet 00:00: mouth in [place] 00 the Medical morning. Branch rosuvastati 2021-09 Yes [id number] 10mg Take 1 [facility] n 10 mg 1-01 tablet by ity of tablet 00:00: mouth at [place] 00 bedtime. Medical Branch SUMAtriptan 2021-09 Yes [id number] 50mg Take 1 [facility] 50 mg 1-01 tablet by ity of tablet 00:00: mouth as [place] 00 needed for Medical Migraine. Branch diltiazem 2021-09 Yes [id number] 120mg Take 1 U nivers 120 mg 24 1-01 capsule by ity of hr capsule 00:00: mouth in [place] as 00 the Medical morning Branch and 1 capsule in the evening. fluticasone 2021-09 Yes [id number] 2{puff} Inhale 2 [facility] propionate 1-01 Puffs ity of (FLOVENT 00:00: every 12 [place] [facility]FA) 110 00 (twelve) Medical mcg/actuati hours. Branch on inhaler Rinse mouth after each use. metformin 2021-09 Yes [id number] 500mg Take 1 U nivers ER 500 mg 1-01 tablet by ity o f 24 hr 00:00: mouth [place] tablet 00 daily with Medical breakfast. Branch pantoprazol 2021-09 Yes [id number] 40mg Take 1 [facility] e 40 mg EC 1-01 tablet by ity of tablet 00:00: mouth in [place] 00 the Medical morning. Branch rosuvastati 2021-09 Yes [id number] 10mg Take 1 [facility] n 10 mg 1-01 tablet by ity of tablet 00:00: mouth at [place] 00 bedtime. Medical Branch SUMAtriptan 2021-09 Yes [id number] 50mg Take 1 [facility] 50 mg 1-01 tablet by ity of tablet 00:00: mouth as [place] 00 needed for Medical Migraine. Branch diltiazem 2021-09 Yes [id number] 120mg Take 1 U nivers 120 mg 24 1-01 capsule by ity of hr capsule 00:00: mouth in [place] as 00 the Medical morning Branch and 1 capsule in the evening. fluticasone 2021-09 Yes [id number] 2{puff} Inhale 2 [facility] propionate 1-01 Puffs ity of (FLOVENT 00:00: every 12 [place] [facility]FA) 110 00 (twelve) Medical mcg/actuati hours. Branch on inhaler Rinse mouth after each use. metformin 2021-09 Yes [id number] 500mg Take 1 U nivers ER 500 mg 1-01 tablet by ity o f 24 hr 00:00: mouth [place] tablet 00 daily with Medical breakfast. Branch pantoprazol 2021-09 Yes [id number] 40mg Take 1 [facility] e 40 mg EC 1-01 tablet by ity of tablet 00:00: mouth in [place] 00 the Medical morning. Branch rosuvastati 2021-09 Yes [id number] 10mg Take 1 [facility] n 10 mg 1-01 tablet by ity of tablet 00:00: mouth at [place] 00 bedtime. Medical Branch SUMAtriptan 2021-09 Yes [id number] 50mg Take 1 [facility] 50 mg 1-01 tablet by ity of tablet 00:00: mouth as [place] 00 needed for Medical Migraine. Branch diltiazem 2021-09 Yes [id number] 120mg Take 1 U nivers 120 mg 24 1-01 capsule by ity of hr capsule 00:00: mouth in [place] as 00 the Medical morning Branch and 1 capsule in the evening. fluticasone 2021-09 Yes [id number] 2{puff} Inhale 2 [facility] propionate 1-01 Puffs ity of (FLOVENT 00:00: every 12 [place] [facility]FA) 110 00 (twelve) Medical mcg/actuati hours. Branch on inhaler Rinse mouth after each use. metformin 2021-09 Yes [id number] 500mg Take 1 U nivers ER 500 mg 1-01 tablet by ity o f 24 hr 00:00: mouth [place] tablet 00 daily with Medical breakfast. Branch pantoprazol 2021-09 Yes [id number] 40mg Take 1 [facility] e 40 mg EC 1-01 tablet by ity of tablet 00:00: mouth in [place] 00 the Medical morning. Branch rosuvastati 2021-09 Yes [id number] 10mg Take 1 [facility] n 10 mg 1-01 tablet by ity of tablet 00:00: mouth at [place] 00 bedtime. Medical Branch SUMAtriptan 2021-09 Yes [id number] 50mg Take 1 [facility] 50 mg 1-01 tablet by ity of tablet 00:00: mouth as [place] 00 needed for Medical Migraine. Branch diltiazem 2021-09 Yes [id number] 120mg Take 1 [facility] nivers 120 mg 24 1-01 capsule by ity of hr capsule 00:00: mouth in [place] as 00 the Medical morning Branch and 1 capsule in the evening. fluticasone 2021-09 Yes [id number] 2{puff} Inhale 2 [facility] propionate 1-01 Puffs ity of (FL[facility]ENT 00:00: [facility] (twelve) Medical mcg/actuati hours. Branch on inhaler Rinse mouth after each use. metformin 2021-09 Yes [id number] 500mg Take 1 U nivers ER 500 mg 1-01 tablet by ity o f 24 hr 00:00: mouth [place] tablet 00 daily with Medical breakfast. Branch pantoprazol 2021-09 Yes [id number] 40mg Take 1 [facility] e 40 mg EC 1-01 tablet by ity of tablet 00:00: mouth in [place] 00 the Medical morning. Branch rosuvastati 2021-09 Yes [id number] 10mg Take 1 [facility] n 10 mg 1-01 tablet by ity of tablet 00:00: mouth at [place] 00 bedtime. Medical Branch SUMAtriptan 2021-09 Yes [id number] 50mg Take 1 [facility] 50 mg 1-01 tablet by ity of tablet 00:00: mouth as [place] 00 needed for Medical Migraine. Branch diltiazem 2021-09 Yes [id number] 120mg Take 1 [facility] nivers 120 mg 24 1-01 capsule by ity of hr capsule 00:00: mouth in [place] as 00 the Medical morning Branch and 1 capsule in the evening. fluticasone 2021-09 Yes [id number] 2{puff} Inhale 2 [facility] propionate 1-01 Puffs ity of (FLOVENT 00:00: every 12 [place] [facility]FA) 110 00 (twelve) Medical mcg/actuati hours. Branch on inhaler Rinse mouth after each use. metformin 2021-09 Yes [id number] 500mg Take 1 U nivers ER 500 mg 1-01 tablet by ity o f 24 hr 00:00: mouth [place] tablet 00 daily with Medical breakfast. Branch pantoprazol 2021-09 Yes [id number] 40mg Take 1 [facility] e 40 mg EC 1-01 tablet by ity of tablet 00:00: mouth in [place] 00 the Medical morning. Branch rosuvastati 2021-09 Yes [id number] 10mg Take 1 [facility] n 10 mg 1-01 tablet by ity of tablet 00:00: mouth at [place] 00 bedtime. Medical Branch SUMAtriptan 2021-09 Yes [id number] 50mg Take 1 [facility] 50 mg 1-01 tablet by ity of tablet 00:00: mouth as [place] 00 needed for Medical Migraine. Branch diltiazem 2021-09 Yes [id number] 120mg Take 1 [facility] nivers 120 mg 24 1-01 capsule by ity of hr capsule 00:00: mouth in [place] as 00 the Medical morning Branch and 1 capsule in the evening. fluticasone 2021-09 Yes [id number] 2{puff} Inhale 2 [facility] propionate 1-01 Puffs ity of (FLOVENT 00:00: every 12 [place] [facility]FA) 110 00 (twelve) Medical mcg/actuati hours. Branch on inhaler Rinse mouth after each use. rosuvastati 2021-09 Yes [id number] 10mg Take 1 [facility] n 10 mg 1-01 tablet by ity of tablet 00:00: mouth at [place] 00 bedtime. Medical Branch diltiazem 2021-09 Yes [id number] 120mg Take 1 [facility] nivers 120 mg 24 1-01 capsule by ity of hr capsule 00:00: mouth in [place] as 00 the Medical morning Branch and 1 capsule in the evening. fluticasone 2021-09 Yes [id number] 2{puff} Inhale 2 [facility] propionate 1-01 Puffs ity of (FLOVENT 00:00: every 12 [place] [facility]FA) 110 00 (twelve) Medical mcg/actuati hours. Branch on inhaler Rinse mouth after each use. rosuvastati 2021-09 Yes [id number] 10mg Take 1 [facility] n 10 mg 1-01 tablet by ity of tablet 00:00: mouth at [place] 00 bedtime. Medical Branch diltiazem 2021-09 Yes [id number] 120mg Take 1 [facility] 120 mg 24 1-01 capsule by [facility] of hr capsule 00:00: mouth in [place] 00 the Medical morning Branch and 1 capsule in the evening. fluticasone 2021-09 Yes [id number] 2{puff} Inhale 2 [facility] propionate 1-01 Puffs ity of (FLOVENT 00:00: every 12 [place] HFA) 110 00 (twelve) Medical mcg/actuati hours. Branch on inhaler Rinse mouth after each use. rosuvastati 2021-09 Yes [id number] 10mg Take 1 [facility] n 10 mg 1-01 tablet by [facility] of tablet 00:00: mouth at [place] 00 bedtime. Medical Branch diltiazem 2021-09 Yes [id number] 120mg Take 1 [facility] n[facility] 120 mg 24 1-01 capsule by [facility] of hr capsule 00:00: mouth in [place] 00 the Medical morning Branch and 1 capsule in the evening. fluticasone 2021-09 Yes [id number] 2{puff} Inhale 2 [facility] propionate 1-01 Puffs ity of (FLOVENT 00:00: every 12 [place] HFA) 110 00 (twelve) Medical mcg/actuati hours. Branch on inhaler Rinse mouth after each use. rosuvastati 2021-09 Yes [id number] 10mg Take 1 [facility] n 10 mg 1-01 tablet by [facility] of tablet 00:00: mouth at [place] 00 bedtime. Medical Branch diltiazem 2021-09 Yes [id number] 120mg Take 1 [facility] nivers 120 mg 24 1-01 capsule by [facility] of hr capsule 00:00: mouth in [place] 00 the Medical morning Branch and 1 capsule in the evening. fluticasone 2021-09 Yes [id number] 2{puff} Inhale 2 [facility] propionate 1-01 Puffs ity of (FLOVENT 00:00: every 12 [place] HFA) 110 00 (twelve) Medical mcg/actuati hours. Branch on inhaler Rinse mouth after each use. rosuvastati 2021-09 Yes [id number] 10mg Take 1 [facility] n 10 mg 1-01 tablet by [facility] of tablet 00:00: mouth at [place] 00 bedtime. Medical Branch diltiazem 2021-09 Yes [id number] 120mg Take 1 [facility] nivers 120 mg 24 1-01 capsule by [facility] of hr capsule 00:00: mouth in [place] 00 the Medical morning Branch and 1 capsule in the evening. fluticasone 2021-09 Yes [id number] 2{puff} Inhale 2 [facility] propionate 1-01 Puffs ity of (FLOVENT 00:00: every 12 [place] HFA) 110 00 (twelve) Medical mcg/actuati hours. Branch on inhaler Rinse mouth after each use. rosuvastati 2021-09 Yes [id number] 10mg Take 1 [facility] n 10 mg 1-01 tablet by [facility] of tablet 00:00: mouth at [place] 00 bedtime. Medical Branch diltiazem 2021-09 Yes [id number] 120mg Take 1 [facility] nivers 120 mg 24 1-01 capsule by [facility] of hr capsule 00:00: mouth in [place] 00 the Medical morning Branch and 1 capsule in the evening. fluticasone 2021-09 Yes [id number] 2{puff} Inhale 2 [facility] propionate 1-01 Puffs ity of (FLOVENT 00:00: every 12 [place] HFA) 110 00 (twelve) Medical mcg/actuati hours. Branch on inhaler Rinse mouth after each use. rosuvastati 2021-09 Yes [id number] 10mg Take 1 [facility] n 10 mg 1-01 tablet by [facility] of tablet 00:00: mouth at [place] 00 bedtime. Medical Branch diltiazem 2021-09 Yes [id number] 120mg Take 1 [facility] 120 mg 24 1-01 capsule by [facility] of hr capsule 00:00: mouth in [place] 00 the Medical morning Branch and 1 capsule in the evening. fluticasone 2021-09 Yes [id number] 2{puff} Inhale 2 [facility] propionate 1-01 Puffs ity of (FLOVENT 00:00: every 12 [place] HFA) 110 00 (twelve) Medical mcg/actuati hours. Branch on inhaler Rinse mouth after each use. rosuvastati 2021-09 Yes [id number] 10mg Take 1 [facility] n 10 mg 1-01 tablet by [facility] of tablet 00:00: mouth at [place] 00 bedtime. Medical Branch diltiazem 2021-09 Yes [id number] 120mg Take 1 [facility] n[facility] 120 mg 24 1-01 capsule by [facility] of hr capsule 00:00: mouth in [place] 00 the Medical morning Branch and 1 capsule in the evening. fluticasone 2021-09 Yes [id number] 2{puff} Inhale 2 [facility] propionate 1-01 Puffs ity of (FLOVENT 00:00: every 12 [place] HFA) 110 00 (twelve) Medical mcg/actuati hours. Branch on inhaler Rinse mouth after each use. rosuvastati 2021-09 Yes [id number] 10mg Take 1 [facility] n 10 mg 1-01 tablet by [facility] of tablet 00:00: mouth at [place] 00 bedtime. Medical Branch diltiazem 2021-09 Yes [id number] 120mg Take 1 [facility] 120 mg 24 1-01 capsule by [facility] of hr capsule 00:00: mouth in [place] 00 the Medical morning Branch and 1 capsule in the evening. fluticasone 2021-09 Yes [id number] 2{puff} Inhale 2 [facility] propionate 1-01 Puffs ity of (FLOVENT 00:00: every 12 [place] HFA) 110 00 (twelve) Medical mcg/actuati hours. Branch on inhaler Rinse mouth after each use. rosuvastati 2021-09 Yes [id number] 10mg Take 1 [facility] n 10 mg 1-01 tablet by [facility] of tablet 00:00: mouth at [place] 00 bedtime. Medical Branch diltiazem 2021-09 Yes [id number] 120mg Take 1 [facility] 120 mg 24 1-01 capsule by [facility] of hr capsule 00:00: mouth in [place] 00 the Medical morning Branch and 1 capsule in the evening. fluticasone 2021-09 Yes [id number] 2{puff} Inhale 2 [facility] propionate 1-01 Puffs ity of (FLOVENT 00:00: every 12 [place] HFA) 110 00 (twelve) Medical mcg/actuati hours. Branch on inhaler Rinse mouth after each use. rosuvastati 2021-09 Yes [id number] 10mg Take 1 [facility] n 10 mg 1-01 tablet by [facility] of tablet 00:00: mouth at [place] 00 bedtime. Medical Branch diltiazem 2021-09 Yes [id number] 120mg Take 1 [facility] 120 mg 24 1-01 capsule by [facility] of hr capsule 00:00: mouth in [place] 00 the Medical morning Branch and 1 capsule in the evening. fluticasone 2021-09 Yes [id number] 2{puff} Inhale 2 [facility] propionate 1-01 Puffs ity of (FLOVENT 00:00: every 12 [place] HFA) 110 00 (twelve) Medical mcg/actuati hours. Branch on inhaler Rinse mouth after each use. rosuvastati 2021-09 Yes [id number] 10mg Take 1 [facility] n 10 mg 1-01 tablet by [facility] of tablet 00:00: mouth at [place] 00 bedtime. Medical Branch diltiazem 2021-09 Yes [id number] 120mg Take 1 [facility] 120 mg 24 1-01 capsule by [facility] of hr capsule 00:00: mouth in [place] 00 the Medical morning Branch and 1 capsule in the evening. fluticasone 2021-09 Yes [id number] 2{puff} Inhale 2 [facility] propionate 1-01 Puffs ity of (FLOVENT 00:00: every 12 [place] HFA) 110 00 (twelve) Medical mcg/actuati hours. Branch on inhaler Rinse mouth after each use. rosuvastati 2021-09 Yes [id number] 10mg Take 1 [facility] n 10 mg 1-01 tablet by [facility] of tablet 00:00: mouth at [place] 00 bedtime. Medical Branch diltiazem 2021-09 Yes [id number] 120mg Take 1 [facility] 120 mg 24 1-01 capsule by [facility] of hr capsule 00:00: mouth in [place] 00 the Medical morning Branch and 1 capsule in the evening. fluticasone 2021-09 Yes [id number] 2{puff} Inhale 2 [facility] propionate 1-01 Puffs ity of (FLOVENT 00:00: every 12 [place] HFA) 110 00 (twelve) Medical mcg/actuati hours. Branch on inhaler Rinse mouth after each use. rosuvastati 2021-09 Yes [id number] 10mg Take 1 [facility] n 10 mg 1-01 tablet by [facility] of tablet 00:00: mouth at [place] 00 bedtime. Medical Branch diltiazem 2021-09 Yes [id number] 120mg Take 1 [facility] 120 mg 24 1- capsule by [facility] of hr capsule 00:00: mouth in [place] 00 the Medical morning Branch and 1 capsule in the evening. fluticasone 2021-09 Yes [id number] 2{puff} Inhale 2 [facility] propionate 1-01 Puffs ity of (FLOVENT 00:00: every 12 [place] HFA) 110 00 (twelve) Medical mcg/actuati hours. Branch on inhaler Rinse mouth after each use. rosuvastati 2021-09 Yes [id number] 10mg Take 1 [facility] n 10 mg -01 tablet by [facility] of tablet 00:00: mouth at [place] 00 bedtime. Medical Branch metformin 2021-09- No [id number] 500mg Take 1 [facility] ER 500 mg 09-26 tablet by ity of 24 hr 00:00: 00:00 mouth [place] tablet 00 :00 daily with Medical breakfast. Branch pantoprazol 2021-09- No [id number] 40mg Take 1 [facility] e 40 mg EC 09-26 tablet by ity of tablet 00:00: 00:00 mouth in [place] 00 :00 the Medical morning. Branch SUMAtriptan 2021-09- No [id number] 50mg Take 1 [facility] 50 mg 09-26 tablet by ity of tablet 00:00: 00:00 mouth as [place] 00 :00 needed for Medical Migraine. Branch metformin 2021-09- No [id number] 500mg Take 1 [facility] ER 500 mg 09-26 tablet by ity of 24 hr 00:00: 00:00 mouth [place] tablet 00 :00 daily with Medical breakfast. Branch pantoprazol 2021-09- No [id number] 40mg Take 1 [facility] e 40 mg EC 09-26 tablet by ity of tablet 00:00: 00:00 mouth in [place] 00 :00 the Medical morning. Branch SUMAtriptan 2021-09- No [id number] 50mg Take 1 [facility] 50 mg 09-26 tablet by [facility]y of tablet 00:00: 00:00 mouth as [place] 00 :00 needed for Medical Migraine. Branch metformin 2021-09- No [id number] 500mg Take 1 [facility] ER 500 mg 09-26 tablet by ity of 24 hr 00:00: 00:00 mouth [place] tablet 00 :00 daily with Medical breakfast. Branch pantoprazol 2021-09- No [id number] 40mg Take 1 [facility] e 40 mg EC 09-26 tablet by ity of tablet 00:00: 00:00 mouth in [place] 00 :00 the Medical morning. Branch SUMAtriptan 2021-09- No [id number] 50mg Take 1 [facility] 50 mg 09-26 tablet by ity of tablet 00:00: 00:00 mouth as [place] 00 :00 needed for Medical Migraine. [place] pregabalin 2021-09- No [id number] 150mg Take 1 [facility] 150 mg 09-26 capsule by ity of capsule 00:00: 00:00 mouth in [place] 00 :00 the Medical morning Branch and 1 capsule at noon and 1 capsule in the evening. levothyroxi 2021-09- No [id number] 50ug Take 1 [facility] ne 50 mcg 09-26 tablet by ity of tablet 00:00: 00:00 mouth [place] 00 :00 every Medical morning. Branch levothyroxi 2021-09- No [id number] 50ug Take 1 [facility] ne 50 mcg 09-26 tablet by ity of tablet 00:00: 00:00 mouth [place] 00 :00 every Medical morning. [place] busPIRone 2021-09 Yes [id number] 20mg Take 2 [facility] [place] 10 mg 0-13 tablets by [facility] of tablet 00:00: mouth in [place] 00 the Medical morning Branch and 2 tablets in the evening. diltiazem 2021-09 Yes [id number] 120mg Take 1 [facility] n[facility] 120 mg 24 0-13 capsule by [facility] of hr capsule 00:00: mouth in [place] 00 the Medical morning Branch and 1 capsule in the evening. levothyroxi 2021-09 Yes [id number] 50ug Take 1 [facility] ne 50 mcg 0-13 tablet by ity o f tablet 00:00: mouth [place] 00 every Medical morning. Branch losartan 50 2021-09 Yes [id number] 50mg Take 1 [facility] mg tablet 0-13 tablet by ity o f 00:00: mouth in [place] 00 the Medical morning Branch and 1 tablet in the evening. metformin 2021-09 Yes [id number] 500mg Take 1 [facility] nivers ER 500 mg 0-13 tablet by ity o f 24 hr 00:00: mouth [place] tablet 00 daily with Medical breakfast. Branch STOP REGULAR METFORMIN. mirabegron 2021-09 Yes [id number] 50mg Take 1 [facility] (MYRBETRIQ) 0-13 tablet by ity of 50 mg 00:00: mouth in [place] tablet 00 the Medical morning. Branch semaglutide 2021-09 Yes [id number] Inject [facility] (OZEMPIC) 0-13 0.25 mg ity of 0.25 mg or 00:00: under the [place] 0.5 mg(2 00 skin Medical mg/1.5 mL) weekly. Branch PnIj pantoprazol 2021-09 Yes [id number] 40mg Take 1 [facility] e 40 mg EC 0-13 tablet by ity of tablet 00:00: mouth in [place] 00 the Medical morning. Branch pregabalin 2021-09 Yes [id number] 150mg Take 1 [facility] 150 mg 0-13 capsule by ity of capsule 00:00: mouth in [place] 00 the Medical morning Branch and 1 capsule at noon and 1 capsule in the evening. rosuvastati 2021-09 Yes [id number] 10mg Take 1 [facility] n 10 mg 0-13 tablet by ity of tablet 00:00: mouth at [place] 00 bedtime. Medical Branch SUMAtriptan 2021-09 Yes [id number] 50mg Take 1 [facility] 50 mg 0-13 tablet by ity of tablet 00:00: mouth as [place] 00 needed for Medical Migraine. Branch topiramate 2021-09 Yes [id number] 75mg Take 3 [facility] 25 mg 0-13 tablets by ity of tablet 00:00: mouth in [place] 00 the Medical morning Branch and 3 tablets in the evening. busPIRone 2021-09 Yes [id number] 20mg Take 2 [facility] [place] 10 mg 0-13 tablets by it[facility] of tablet 00:00: mouth in [place] 00 the Medical morning Branch and 2 tablets in the evening. losartan 50 2021-09 Yes [id number] 50mg Take 1 [facility] mg tablet 0-13 tablet by ity o f 00:00: mouth in [place] 00 the Medical morning Branch and 1 tablet in the evening. mirabegron 2021-09 Yes [id number] 50mg Take 1 [facility] (MYRBETRIQ) 0-13 tablet by ity of 50 mg 00:00: mouth in [place] tablet 00 the Medical morning. Branch semaglutide 2021-09 Yes [id number] Inject [facility] (OZEMPIC) 0-13 0.25 mg ity of 0.25 mg or 00:00: under the [place] 0.5 mg(2 00 skin Medical mg/1.5 mL) weekly. Branch PnIj topiramate 2021-09 Yes [id number] 75mg Take 3 [facility] 25 mg 0-13 tablets by ity of tablet 00:00: mouth in [place] 00 the Medical morning Branch and 3 tablets in the evening. busPIRone 2021-09 Yes [id number] 20mg Take 2 [facility] [place] 10 mg 0-13 tablets by [facility] of tablet 00:00: mouth in [place] 00 the Medical morning Branch and 2 tablets in the evening. losartan 50 2021-09 Yes [id number] 50mg Take 1 [facility] mg tablet 0-13 tablet by ity o f 00:00: mouth in [place] 00 the Medical morning Branch and 1 tablet in the evening. mirabegron 2021-09 Yes [id number] 50mg Take 1 [facility] (MYRBETRIQ) 0-13 tablet by ity of 50 mg 00:00: mouth in [place] tablet 00 the Medical morning. Branch semaglutide 2021-09 Yes [id number] Inject [facility] (OZEMPIC) 0-13 0.25 mg ity of 0.25 mg or 00:00: under the [place] 0.5 mg(2 00 skin Medical mg/1.5 mL) weekly. Branch PnIj topiramate 2021-09 Yes [id number] 75mg Take 3 [facility] 25 mg 0-13 tablets by ity of tablet 00:00: mouth in [place] 00 the Medical morning Branch and 3 tablets in the evening. busPIRone 2021-09 Yes [id number] 20mg Take 2 [facility] [place] 10 mg 0-13 tablets by ity of tablet 00:00: mouth in [place] 00 the Medical morning Branch and 2 tablets in the evening. losartan 50 2021-09 Yes [id number] 50mg Take 1 [facility] mg tablet 0-13 tablet by ity o f 00:00: mouth in [place] 00 the Medical morning Branch and 1 tablet in the evening. mirabegron 2021-09 Yes [id number] 50mg Take 1 [facility] (MYRBETRIQ) 0-13 tablet by ity of 50 mg 00:00: mouth in [place] tablet 00 the Medical morning. Branch semaglutide 2021-09 Yes [id number] Inject [facility] (OZEMPIC) 0-13 0.25 mg ity of 0.25 mg or 00:00: under the [place] 0.5 mg(2 00 skin Medical mg/1.5 mL) weekly. Branch PnIj topiramate 2021-09 Yes [id number] 75mg Take 3 [facility] 25 mg 0-13 tablets by ity of tablet 00:00: mouth in [place] 00 the Medical morning Branch and 3 tablets in the evening. busPIRone 2021-09 Yes [id number] 20mg Take 2 [facility] [place] 10 mg 0-13 tablets by ity of tablet 00:00: mouth in [place] 00 the Medical morning Branch and 2 tablets in the evening. losartan 50 2021-09 Yes [id number] 50mg Take 1 [facility] mg tablet 0-13 tablet by ity o f 00:00: mouth in [place] 00 the Medical morning Branch and 1 tablet in the evening. mirabegron 2021-09 Yes [id number] 50mg Take 1 [facility] (MYRBETRIQ) 0-13 tablet by ity of 50 mg 00:00: mouth in [place] tablet 00 the Medical morning. Branch semaglutide 2021-09 Yes [id number] Inject [facility] (OZEMPIC) 0-13 0.25 mg ity of 0.25 mg or 00:00: under the [place] 0.5 mg(2 00 skin Medical mg/1.5 mL) weekly. Branch PnIj topiramate 2021-09 Yes [id number] 75mg Take 3 [facility] 25 mg 0-13 tablets by ity of tablet 00:00: mouth in [place] 00 the Medical morning Branch and 3 tablets in the evening. busPIRone 2021-09 Yes [id number] 20mg Take 2 [facility] [place] 10 mg 0-13 tablets by ity of tablet 00:00: mouth in [place] 00 the Medical morning Branch and 2 tablets in the evening. losartan 50 2021-09 Yes [id number] 50mg Take 1 [facility] mg tablet 0-13 tablet by ity o f 00:00: mouth in [place] 00 the Medical morning Branch and 1 tablet in the evening. mirabegron 2021-09 Yes [id number] 50mg Take 1 [facility] (MYRBETRIQ) 0-13 tablet by ity of 50 mg 00:00: mouth in [place] tablet 00 the Medical morning. Branch semaglutide 2021-09 Yes [id number] Inject [facility] (OZEMPIC) 0-13 0.25 mg ity of 0.25 mg or 00:00: under the [place] 0.5 mg(2 00 skin Medical mg/1.5 mL) weekly. Branch PnIj topiramate 2021-09 Yes [id number] 75mg Take 3 [facility] 25 mg 0-13 tablets by ity of tablet 00:00: mouth in [place] 00 the Medical morning Branch and 3 tablets in the evening. busPIRone 2021-09 Yes [id number] 20mg Take 2 [facility] [place] 10 mg 0-13 tablets by ity of tablet 00:00: mouth in [place] 00 the Medical morning Branch and 2 tablets in the evening. losartan 50 2021-09 Yes [id number] 50mg Take 1 [facility] mg tablet 0-13 tablet by ity o f 00:00: mouth in [place] 00 the Medical morning Branch and 1 tablet in the evening. mirabegron 2021-09 Yes [id number] 50mg Take 1 [facility] (MYRBETRIQ) 0-13 tablet by ity of 50 mg 00:00: mouth in [place] tablet 00 the Medical morning. Branch semaglutide 2021-09 Yes [id number] Inject [facility] (OZEMPIC) 0-13 0.25 mg ity of 0.25 mg or 00:00: under the [place] 0.5 mg(2 00 skin Medical mg/1.5 mL) weekly. Branch PnIj topiramate 2021-09 Yes [id number] 75mg Take 3 [facility] 25 mg 0-13 tablets by ity of tablet 00:00: mouth in [place] 00 the Medical morning Branch and 3 tablets in the evening. busPIRone 2021-09 Yes [id number] 20mg Take 2 [facility] [place] 10 mg 0-13 tablets by ity of tablet 00:00: mouth in [place] 00 the Medical morning Branch and 2 tablets in the evening. losartan 50 2021-09 Yes [id number] 50mg Take 1 [facility] mg tablet 0-13 tablet by ity o f 00:00: mouth in [place] 00 the Medical morning Branch and 1 tablet in the evening. mirabegron 2021-09 Yes [id number] 50mg Take 1 [facility] (MYRBETRIQ) 0-13 tablet by ity of 50 mg 00:00: mouth in [place] tablet 00 the Medical morning. Branch semaglutide 2021-09 Yes [id number] Inject [facility] (OZEMPIC) 0-13 0.25 mg ity of 0.25 mg or 00:00: under the [place] 0.5 mg(2 00 skin Medical mg/1.5 mL) weekly. Branch PnIj topiramate 2021-09 Yes [id number] 75mg Take 3 [facility] 25 mg 0-13 tablets by ity of tablet 00:00: mouth in [place] 00 the Medical morning Branch and 3 tablets in the evening. busPIRone 2021-09 Yes [id number] 20mg Take 2 [facility] [place] 10 mg 0-13 tablets by it[facility] of tablet 00:00: mouth in [place] 00 the Medical morning Branch and 2 tablets in the evening. losartan 50 2021-09 Yes [id number] 50mg Take 1 [facility] mg tablet 0-13 tablet by ity o f 00:00: mouth in [place] 00 the Medical morning Branch and 1 tablet in the evening. mirabegron 2021-09 Yes [id number] 50mg Take 1 [facility] (MYRBETRIQ) 0-13 tablet by ity of 50 mg 00:00: mouth in [place] tablet 00 the Medical morning. Branch semaglutide 2021-09 Yes [id number] Inject [facility] (OZEMPIC) 0-13 0.25 mg ity of 0.25 mg or 00:00: under the [place] 0.5 mg(2 00 skin Medical mg/1.5 mL) weekly. Branch PnIj topiramate 2021-09 Yes [id number] 75mg Take 3 [facility] 25 mg 0-13 tablets by ity of tablet 00:00: mouth in [place] 00 the Medical morning Branch and 3 tablets in the evening. busPIRone 2021-09 Yes [id number] 20mg Take 2 [facility] [place] 10 mg 0-13 tablets by ity of tablet 00:00: mouth in [place] 00 the Medical morning Branch and 2 tablets in the evening. losartan 50 2021-09 Yes [id number] 50mg Take 1 [facility] mg tablet 0-13 tablet by ity o f 00:00: mouth in [place] 00 the Medical morning Branch and 1 tablet in the evening. mirabegron 2021-09 Yes [id number] 50mg Take 1 [facility] (MYRBETRIQ) 0-13 tablet by ity of 50 mg 00:00: mouth in [place] tablet 00 the Medical morning. Branch semaglutide 2021-09 Yes [id number] Inject [facility] (OZEMPIC) 0-13 0.25 mg ity of 0.25 mg or 00:00: under the [place] 0.5 mg(2 00 skin Medical mg/1.5 mL) weekly. Branch PnIj topiramate 2021-09 Yes [id number] 75mg Take 3 [facility] 25 mg 0-13 tablets by ity of tablet 00:00: mouth in [place] 00 the Medical morning Branch and 3 tablets in the evening. busPIRone 2021-09 Yes [id number] 20mg Take 2 [facility] [place] 10 mg 0-13 tablets by ity of tablet 00:00: mouth in [place] 00 the Medical morning Branch and 2 tablets in the evening. losartan 50 2021-09 Yes [id number] 50mg Take 1 [facility] mg tablet 0-13 tablet by ity o f 00:00: mouth in [place] 00 the Medical morning Branch and 1 tablet in the evening. mirabegron 2021-09 Yes [id number] 50mg Take 1 [facility] (MYRBETRIQ) 0-13 tablet by ity of 50 mg 00:00: mouth in [place] tablet 00 the Medical morning. Branch semaglutide 2021-09 Yes [id number] Inject [facility] (OZEMPIC) 0-13 0.25 mg ity of 0.25 mg or 00:00: under the [place] 0.5 mg(2 00 skin Medical mg/1.5 mL) weekly. Branch PnIj topiramate 2021-09 Yes [id number] 75mg Take 3 [facility] 25 mg 0-13 tablets by ity of tablet 00:00: mouth in [place] 00 the Medical morning Branch and 3 tablets in the evening. busPIRone 2021-09 Yes [id number] 20mg Take 2 [facility] [place] 10 mg 0-13 tablets by ity of tablet 00:00: mouth in [place] 00 the Medical morning Branch and 2 tablets in the evening. losartan 50 2021-09 Yes [id number] 50mg Take 1 [facility] mg tablet 0-13 tablet by ity o f 00:00: mouth in [place] 00 the Medical morning Branch and 1 tablet in the evening. mirabegron 2021-09 Yes [id number] 50mg Take 1 [facility] (MYRBETRIQ) 0-13 tablet by ity of 50 mg 00:00: mouth in [place] tablet 00 the Medical morning. Branch semaglutide 2021-09 Yes [id number] Inject [facility] (OZEMPIC) 0-13 0.25 mg ity of 0.25 mg or 00:00: under the [place] 0.5 mg(2 00 skin Medical mg/1.5 mL) weekly. Branch PnIj topiramate 2021-09 Yes [id number] 75mg Take 3 [facility] 25 mg 0-13 tablets by ity of tablet 00:00: mouth in [place] 00 the Medical morning Branch and 3 tablets in the evening. busPIRone 2021-09 Yes [id number] 20mg Take 2 [facility] [place] 10 mg 0-13 tablets by ity of tablet 00:00: mouth in [place] 00 the Medical morning Branch and 2 tablets in the evening. losartan 50 2021-09 Yes [id number] 50mg Take 1 [facility] mg tablet 0-13 tablet by ity o f 00:00: mouth in [place] 00 the Medical morning Branch and 1 tablet in the evening. mirabegron 2021-09 Yes [id number] 50mg Take 1 [facility] (MYRBETRIQ) 0-13 tablet by ity of 50 mg 00:00: mouth in [place] tablet 00 the Medical morning. Branch semaglutide 2021-09 Yes [id number] Inject [facility] (OZEMPIC) 0-13 0.25 mg ity of 0.25 mg or 00:00: under the [place] 0.5 mg(2 00 skin Medical mg/1.5 mL) weekly. Branch PnIj topiramate 2021-09 Yes [id number] 75mg Take 3 [facility] 25 mg 0-13 tablets by ity of tablet 00:00: mouth in [place] 00 the Medical morning Branch and 3 tablets in the evening. busPIRone 2021-09 Yes [id number] 20mg Take 2 [facility] [place] 10 mg 0-13 tablets by ity of tablet 00:00: mouth in [place] 00 the Medical morning Branch and 2 tablets in the evening. losartan 50 2021-09 Yes [id number] 50mg Take 1 [facility] mg tablet 0-13 tablet by ity o f 00:00: mouth in [place] 00 the Medical morning Branch and 1 tablet in the evening. mirabegron 2021-09 Yes [id number] 50mg Take 1 [facility] (MYRBETRIQ) 0-13 tablet by ity of 50 mg 00:00: mouth in [place] tablet 00 the Medical morning. Branch semaglutide 2021-09 Yes [id number] Inject [facility] (OZEMPIC) 0-13 0.25 mg ity of 0.25 mg or 00:00: under the [place] 0.5 mg(2 00 skin Medical mg/1.5 mL) weekly. Branch PnIj topiramate 2021-09 Yes [id number] 75mg Take 3 [facility] 25 mg 0-13 tablets by ity of tablet 00:00: mouth in [place] 00 the Medical morning Branch and 3 tablets in the evening. busPIRone 2021-09 Yes [id number] 20mg Take 2 [facility] [place] 10 mg 0-13 tablets by ity of tablet 00:00: mouth in [place] 00 the Medical morning Branch and 2 tablets in the evening. losartan 50 2021-09 Yes [id number] 50mg Take 1 [facility] mg tablet 0-13 tablet by ity o f 00:00: mouth in [place] 00 the Medical morning Branch and 1 tablet in the evening. mirabegron 2021-09 Yes [id number] 50mg Take 1 [facility] (MYRBETRIQ) 0-13 tablet by ity of 50 mg 00:00: mouth in [place] tablet 00 the Medical morning. Branch semaglutide 2021-09 Yes [id number] Inject [facility] (OZEMPIC) 0-13 0.25 mg ity of 0.25 mg or 00:00: under the [place] 0.5 mg(2 00 skin Medical mg/1.5 mL) weekly. Branch PnIj topiramate 2021-09 Yes [id number] 75mg Take 3 [facility] 25 mg 0-13 tablets by ity of tablet 00:00: mouth in [place] 00 the Medical morning Branch and 3 tablets in the evening. busPIRone 2021-09 Yes [id number] 20mg Take 2 [facility] [place] 10 mg 0-13 tablets by ity of tablet 00:00: mouth in [place] 00 the Medical morning Branch and 2 tablets in the evening. losartan 50 2021-09 Yes [id number] 50mg Take 1 [facility] mg tablet 0-13 tablet by ity o f 00:00: mouth in [place] 00 the Medical morning Branch and 1 tablet in the evening. mirabegron 2021-09 Yes [id number] 50mg Take 1 [facility] (MYRBETRIQ) 0-13 tablet by ity of 50 mg 00:00: mouth in [place] tablet 00 the Medical morning. Branch semaglutide 2021-09 Yes [id number] Inject [facility] (OZEMPIC) 0-13 0.25 mg ity of 0.25 mg or 00:00: under the [place] 0.5 mg(2 00 skin Medical mg/1.5 mL) weekly. Branch PnIj topiramate 2021-09 Yes [id number] 75mg Take 3 [facility] 25 mg 0-13 tablets by ity of tablet 00:00: mouth in [place] 00 the Medical morning Branch and 3 tablets in the evening. busPIRone 2021-09 Yes [id number] 20mg Take 2 [facility] [place] 10 mg 0-13 tablets by ity of tablet 00:00: mouth in [place] 00 the Medical morning Branch and 2 tablets in the evening. losartan 50 2021-09 Yes [id number] 50mg Take 1 [facility] mg tablet 0-13 tablet by ity o f 00:00: mouth in [place] 00 the Medical morning Branch and 1 tablet in the evening. mirabegron 2021-09 Yes [id number] 50mg Take 1 [facility] (MYRBETRIQ) 0-13 tablet by ity of 50 mg 00:00: mouth in [place] tablet 00 the Medical morning. Branch semaglutide 2021-09 Yes [id number] Inject [facility] (OZEMPIC) 0-13 0.25 mg ity of 0.25 mg or 00:00: under the [place] 0.5 mg(2 00 skin Medical mg/1.5 mL) weekly. Branch PnIj topiramate 2021-09 Yes [id number] 75mg Take 3 [facility] 25 mg 0-13 tablets by ity of tablet 00:00: mouth in [place] 00 the Medical morning Branch and 3 tablets in the evening. busPIRone 2021-09 Yes [id number] 20mg Take 2 [facility] 10 mg 0-13 tablets by [facility] of tablet 00:00: mouth in [place] 00 the Medical morning Branch and 2 tablets in the evening. losartan 50 2021-09 Yes [id number] 50mg Take 1 [facility] mg tablet 0-13 tablet by ity o f 00:00: mouth in [place] 00 the Medical morning Branch and 1 tablet in the evening. mirabegron 2021-09 Yes [id number] 50mg Take 1 [facility] (MYRBETRIQ) 0-13 tablet by ity of 50 mg 00:00: mouth in [place] tablet 00 the Medical morning. Branch semaglutide 2021-09 Yes [id number] Inject [facility] (OZEMPIC) 0-13 0.25 mg ity of 0.25 mg or 00:00: under the [place] 0.5 mg(2 00 skin Medical mg/1.5 mL) weekly. Branch PnIj topiramate 2021-09 Yes [id number] 75mg Take 3 [facility] 25 mg 0-13 tablets by ity of tablet 00:00: mouth in [place] 00 the Medical morning Branch and 3 tablets in the evening. busPIRone 2021-09 Yes [id number] 20mg Take 2 [facility] [place] 10 mg 0-13 tablets by ity of tablet 00:00: mouth in [place] 00 the Medical morning Branch and 2 tablets in the evening. losartan 50 2021-09 Yes [id number] 50mg Take 1 [facility] mg tablet 0-13 tablet by ity o f 00:00: mouth in [place] 00 the Medical morning Branch and 1 tablet in the evening. mirabegron 2021-09 Yes [id number] 50mg Take 1 [facility] (MYRBETRIQ) 0-13 tablet by ity of 50 mg 00:00: mouth in [place] tablet 00 the Medical morning. Branch semaglutide 2021-09 Yes [id number] Inject [facility] (OZEMPIC) 0-13 0.25 mg ity of 0.25 mg or 00:00: under the [place] 0.5 mg(2 00 skin Medical mg/1.5 mL) weekly. Branch PnIj topiramate 2021-09 Yes [id number] 75mg Take 3 [facility] 25 mg 0-13 tablets by it[facility] of tablet 00:00: mouth in [place] 00 the Medical morning Branch and 3 tablets in the evening. busPIRone 2021-09 Yes [id number] 20mg Take 2 [facility] [place] 10 mg 0-13 tablets by it[facility] of tablet 00:00: mouth in [place] 00 the Medical morning Branch and 2 tablets in the evening. losartan 50 2021-09 Yes [id number] 50mg Take 1 [facility] mg tablet 0-13 tablet by ity o f 00:00: mouth in [place] 00 the Medical morning Branch and 1 tablet in the evening. mirabegron 2021-09 Yes [id number] 50mg Take 1 [facility] (MYRBETRIQ) 0-13 tablet by ity of 50 mg 00:00: mouth in [place] tablet 00 the Medical morning. Branch semaglutide 2021-09 Yes [id number] Inject [facility] (OZEMPIC) 0-13 0.25 mg ity of 0.25 mg or 00:00: under the [place] 0.5 mg(2 00 skin Medical mg/1.5 mL) weekly. Branch PnIj topiramate 2021-09 Yes [id number] 75mg Take 3 [facility] 25 mg 0-13 tablets by ity of tablet 00:00: mouth in [place] 00 the Medical morning Branch and 3 tablets in the evening. busPIRone 2021-09 Yes [id number] 20mg Take 2 [facility] [place] 10 mg 0-13 tablets by [facility] of tablet 00:00: mouth in [place] 00 the Medical morning Branch and 2 tablets in the evening. losartan 50 2021-09 Yes [id number] 50mg Take 1 [facility] mg tablet 0-13 tablet by ity o f 00:00: mouth in [place] 00 the Medical morning Branch and 1 tablet in the evening. mirabegron 2021-09 Yes [id number] 50mg Take 1 [facility] (MYRBETRIQ) 0-13 tablet by ity of 50 mg 00:00: mouth in [place] tablet 00 the Medical morning. Branch semaglutide 2021-09 Yes [id number] Inject [facility] (OZEMPIC) 0-13 0.25 mg ity of 0.25 mg or 00:00: under the [place] 0.5 mg(2 00 skin Medical mg/1.5 mL) weekly. Branch PnIj topiramate 2021-09 Yes [id number] 75mg Take 3 [facility] 25 mg 0-13 tablets by it[facility] of tablet 00:00: mouth in [place] 00 the Medical morning Branch and 3 tablets in the evening. busPIRone 2021-09 Yes [id number] 20mg Take 2 [facility] [place] 10 mg 0-13 tablets by [facility] of tablet 00:00: mouth in [place] 00 the Medical morning Branch and 2 tablets in the evening. losartan 50 2021-09 Yes [id number] 50mg Take 1 [facility] mg tablet 0-13 tablet by ity o f 00:00: mouth in [place] 00 the Medical morning Branch and 1 tablet in the evening. mirabegron 2021-09 Yes [id number] 50mg Take 1 [facility] (MYRBETRIQ) 0-13 tablet by ity of 50 mg 00:00: mouth in [place] tablet 00 the Medical morning. Branch semaglutide 2021-09 Yes [id number] Inject [facility] (OZEMPIC) 0-13 0.25 mg ity of 0.25 mg or 00:00: under the [place] 0.5 mg(2 00 skin Medical mg/1.5 mL) weekly. Branch PnIj topiramate 2021-09 Yes [id number] 75mg Take 3 [facility] 25 mg 0-13 tablets by ity of tablet 00:00: mouth in [place] 00 the Medical morning Branch and 3 tablets in the evening. busPIRone 2021-09 Yes [id number] 20mg Take 2 [facility] [place] 10 mg 0-13 tablets by it[facility] of tablet 00:00: mouth in [place] 00 the Medical morning Branch and 2 tablets in the evening. losartan 50 2021-09 Yes [id number] 50mg Take 1 [facility] mg tablet 0-13 tablet by ity o f 00:00: mouth in [place] 00 the Medical morning Branch and 1 tablet in the evening. mirabegron 2021-09 Yes [id number] 50mg Take 1 [facility] (MYRBETRIQ) 0-13 tablet by ity of 50 mg 00:00: mouth in [place] tablet 00 the Medical morning. Branch semaglutide 2021-09 Yes [id number] Inject [facility] (OZEMPIC) 0-13 0.25 mg ity of 0.25 mg or 00:00: under the [place] 0.5 mg(2 00 skin Medical mg/1.5 mL) weekly. Branch PnIj topiramate 2021-09 Yes [id number] 75mg Take 3 [facility] 25 mg 0-13 tablets by ity of tablet 00:00: mouth in [place] 00 the Medical morning Branch and 3 tablets in the evening. losartan 50 2021-09 Yes [id number] 50mg Take 1 [facility] mg tablet 0-13 tablet by ity o f 00:00: mouth in [place] 00 the Medical morning Branch and 1 tablet in the evening. mirabegron 2021-09 Yes [id number] 50mg Take 1 [facility] (MYRBETRIQ) 0-13 tablet by ity of 50 mg 00:00: mouth in [place] tablet 00 the Medical morning. Branch semaglutide 2021-09 Yes [id number] Inject [facility] (OZEMPIC) 0-13 0.25 mg ity of 0.25 mg or 00:00: under the [place] 0.5 mg(2 00 skin Medical mg/1.5 mL) weekly. Branch PnIj topiramate 2021-09 Yes [id number] 75mg Take 3 [facility] 25 mg 0-13 tablets by ity of tablet 00:00: mouth in [place] 00 the Medical morning Branch and 3 tablets in the evening. losartan 50 2021-09 Yes [id number] 50mg Take 1 [facility] mg tablet 0-13 tablet by ity o f 00:00: mouth in [place] 00 the Medical morning Branch and 1 tablet in the evening. mirabegron 2021-09 Yes [id number] 50mg Take 1 [facility] (MYRBETRIQ) 0-13 tablet by ity of 50 mg 00:00: mouth in [place] tablet 00 the Medical morning. Branch semaglutide 2021-09 Yes [id number] Inject [facility] (OZEMPIC) 0-13 0.25 mg ity of 0.25 mg or 00:00: under the [place] 0.5 mg(2 00 skin Medical mg/1.5 mL) weekly. Branch PnIj topiramate 2021-09 Yes [id number] 75mg Take 3 [facility] 25 mg 0-13 tablets by ity of tablet 00:00: mouth in [place] 00 the Medical morning Branch and 3 tablets in the evening. losartan 50 2021-09 Yes [id number] 50mg Take 1 [facility] mg tablet 0-13 tablet by ity o f 00:00: mouth in [place] 00 the Medical morning Branch and 1 tablet in the evening. mirabegron 2021-09 Yes [id number] 50mg Take 1 [facility] (MYRBETRIQ) 0-13 tablet by ity of 50 mg 00:00: mouth in [place] tablet 00 the Medical morning. Branch semaglutide 2021-09 Yes [id number] Inject [facility] (OZEMPIC) 0-13 0.25 mg ity of 0.25 mg or 00:00: under the [place] 0.5 mg(2 00 skin Medical mg/1.5 mL) weekly. Branch PnIj topiramate 2021-09 Yes [id number] 75mg Take 3 [facility] 25 mg 0-13 tablets by ity of tablet 00:00: mouth in [place] 00 the Medical morning Branch and 3 tablets in the evening. losartan 50 2021-09 Yes [id number] 50mg Take 1 [facility] mg tablet 0-13 tablet by ity o f 00:00: mouth in [place] the Medical morning Branch and 1 tablet in the evening. mirabegron 2021-09 Yes [id number] 50mg Take 1 [facility] (MYRBETRIQ) 0-13 tablet by ity of 50 mg 00:00: mouth in [place] tablet 00 the Medical morning. Branch semaglutide 2021-09 Yes [id number] Inject [facility] (OZEMPIC) 0-13 0.25 mg ity of 0.25 mg or 00:00: under the [place] 0.5 mg(2 00 skin Medical mg/1.5 mL) weekly. Branch PnIj topiramate 2021-09 Yes [id number] 75mg Take 3 [facility] 25 mg 0-13 tablets by ity of tablet 00:00: mouth in [place] 00 the Medical morning Branch and 3 tablets in the evening. losartan 50 2021-09 Yes [id number] 50mg Take 1 [facility] mg tablet 0-13 tablet by ity o f 00:00: mouth in [place] 00 the Medical morning Branch and 1 tablet in the evening. mirabegron 2021-09 Yes [id number] 50mg Take 1 [facility] (MYRBETRIQ) 0-13 tablet by ity of 50 mg 00:00: mouth in [place] tablet 00 the Medical morning. Branch semaglutide 2021-09 Yes [id number] Inject [facility] (OZEMPIC) 0-13 0.25 mg ity of 0.25 mg or 00:00: under the [place] 0.5 mg(2 00 skin Medical mg/1.5 mL) weekly. Branch PnIj topiramate 2021-09 Yes [id number] 75mg Take 3 [facility] 25 mg 0-13 tablets by it[facility] of tablet 00:00: mouth in [place] 00 the Medical morning Branch and 3 tablets in the evening. losartan 50 2021-09 Yes [id number] 50mg Take 1 [facility] mg tablet 0-13 tablet by ity o f 00:00: mouth in [place] 00 the Medical morning Branch and 1 tablet in the evening. mirabegron 2021-09 Yes [id number] 50mg Take 1 [facility] (MYRBETRIQ) 0-13 tablet by ity of 50 mg 00:00: mouth in [place] tablet 00 the Medical morning. Branch semaglutide 2021-09 Yes [id number] Inject [facility] (OZEMPIC) 0-13 0.25 mg ity of 0.25 mg or 00:00: under the [place] 0.5 mg(2 00 skin Medical mg/1.5 mL) weekly. Branch PnIj topiramate 2021-09 Yes [id number] 75mg Take 3 [facility] 25 mg 0-13 tablets by ity of tablet 00:00: mouth in [place] 00 the Medical morning Branch and 3 tablets in the evening. losartan 50 2021-09 Yes [id number] 50mg Take 1 [facility] mg tablet 0-13 tablet by ity o f 00:00: mouth in [place] 00 the Medical morning Branch and 1 tablet in the evening. mirabegron 2021-09 Yes [id number] 50mg Take 1 [facility] (MYRBETRIQ) 0-13 tablet by ity of 50 mg 00:00: mouth in [place] tablet 00 the Medical morning. Branch semaglutide 2021-09 Yes [id number] Inject [facility] (OZEMPIC) 0-13 0.25 mg ity of 0.25 mg or 00:00: under the [place] 0.5 mg(2 00 skin Medical mg/1.5 mL) weekly. Branch PnIj topiramate 2021-09 Yes [id number] 75mg Take 3 [facility] 25 mg 0-13 tablets by ity of tablet 00:00: mouth in [place] 00 the Medical morning Branch and 3 tablets in the evening. losartan 50 2021-09 Yes [id number] 50mg Take 1 [facility] mg tablet 0-13 tablet by ity o f 00:00: mouth in [place] 00 the Medical morning Branch and 1 tablet in the evening. mirabegron 2021-09 Yes [id number] 50mg Take 1 [facility] (MYRBETRIQ) 0-13 tablet by ity of 50 mg 00:00: mouth in [place] tablet 00 the Medical morning. Branch semaglutide 2021-09 Yes [id number] Inject [facility] (OZEMPIC) 0-13 0.25 mg ity of 0.25 mg or 00:00: under the [place] 0.5 mg(2 00 skin Medical mg/1.5 mL) weekly. Branch PnIj topiramate 2021-09 Yes [id number] 75mg Take 3 [facility] 25 mg 0-13 tablets by ity of tablet 00:00: mouth in [place] the Medical morning Branch and 3 tablets in the evening. losartan 50 2021-09 Yes [id number] 50mg Take 1 [facility] mg tablet 0-13 tablet by ity o f 00:00: mouth in [place] the Medical morning Branch and 1 tablet in the evening. mirabegron 2021-09 Yes [id number] 50mg Take 1 [facility] (MYRBETRIQ) 0-13 tablet by ity of 50 mg 00:00: mouth in [place] tablet 00 the Medical morning. Branch semaglutide 2021-09 Yes [id number] Inject [facility] (OZEMPIC) 0-13 0.25 mg ity of 0.25 mg or 00:00: under the [place] 0.5 mg(2 00 skin Medical mg/1.5 mL) weekly. Branch PnIj topiramate 2021-09 Yes [id number] 75mg Take 3 [facility] 25 mg 0-13 tablets by ity of tablet 00:00: mouth in [place] the Medical morning Branch and 3 tablets in the evening. losartan 50 2021-09 Yes [id number] 50mg Take 1 [facility] mg tablet 0-13 tablet by ity o f 00:00: mouth in [place] 00 the Medical morning Branch and 1 tablet in the evening. mirabegron 2021-09 Yes [id number] 50mg Take 1 [facility] (MYRBETRIQ) 0-13 tablet by ity of 50 mg 00:00: mouth in [place] tablet 00 the Medical morning. Branch semaglutide 2021-09 Yes [id number] Inject [facility] (OZEMPIC) 0-13 0.25 mg ity of 0.25 mg or 00:00: under the [place] 0.5 mg(2 00 skin Medical mg/1.5 mL) weekly. Branch PnIj topiramate 2021-09 Yes [id number] 75mg Take 3 [facility] 25 mg 0-13 tablets by ity of tablet 00:00: mouth in [place] 00 the Medical morning Branch and 3 tablets in the evening. losartan 50 2021-09 Yes [id number] 50mg Take 1 [facility] mg tablet 0-13 tablet by ity o f 00:00: mouth in [place] 00 the Medical morning Branch and 1 tablet in the evening. mirabegron 2021-09 Yes [id number] 50mg Take 1 [facility] (MYRBETRIQ) 0-13 tablet by ity of 50 mg 00:00: mouth in [place] tablet 00 the Medical morning. Branch semaglutide 2021-09 Yes [id number] Inject [facility] (OZEMPIC) 0-13 0.25 mg ity of 0.25 mg or 00:00: under the [place] 0.5 mg(2 00 skin Medical mg/1.5 mL) weekly. Branch PnIj topiramate 2021-09 Yes [id number] 75mg Take 3 [facility] 25 mg 0-13 tablets by ity of tablet 00:00: mouth in [place] 00 the Medical morning Branch and 3 tablets in the evening. losartan 50 2021-09 Yes [id number] 50mg Take 1 [facility] mg tablet 0-13 tablet by ity o f 00:00: mouth in [place] 00 the Medical morning Branch and 1 tablet in the evening. mirabegron 2021- Yes [id number] 50mg Take 1 [facility] (MYRBETRIQ) 0-13 tablet by ity of 50 mg 00:00: mouth in [place] tablet 00 the Medical morning. Branch semaglutide 2021-09 Yes [id number] Inject [facility] (OZEMPIC) 0-13 0.25 mg ity of 0.25 mg or 00:00: under the [place] 0.5 mg(2 00 skin Medical mg/1.5 mL) weekly. Branch PnIj topiramate 2021-09 Yes [id number] 75mg Take 3 [facility] 25 mg 0-13 tablets by ity of tablet 00:00: mouth in [place] 00 the Medical morning Branch and 3 tablets in the evening. losartan 50 2021-09 Yes [id number] 50mg Take 1 [facility] mg tablet 0-13 tablet by ity o f 00:00: mouth in [place] 00 the Medical morning Branch and 1 tablet in the evening. mirabegron 2021-09 Yes [id number] 50mg Take 1 [facility] (MYRBETRIQ) 0-13 tablet by ity of 50 mg 00:00: mouth in [place] tablet 00 the Medical morning. Branch semaglutide 2021-09 Yes [id number] Inject [facility] (OZEMPIC) 0-13 0.25 mg ity of 0.25 mg or 00:00: under the [place] 0.5 mg(2 00 skin Medical mg/1.5 mL) weekly. Branch PnIj topiramate 2021-09 Yes [id number] 75mg Take 3 [facility] 25 mg 0-13 tablets by ity of tablet 00:00: mouth in [place] 00 the Medical morning Branch and 3 tablets in the evening. losartan 50 2021-09 Yes [id number] 50mg Take 1 [facility] mg tablet 0-13 tablet by ity o f 00:00: mouth in [place] 00 the Medical morning Branch and 1 tablet in the evening. mirabegron 2021-09 Yes [id number] 50mg Take 1 [facility] (MYRBETRIQ) 0-13 tablet by ity of 50 mg 00:00: mouth in [place] tablet 00 the Medical morning. Branch semaglutide 2021-09 Yes [id number] Inject [facility] (OZEMPIC) 0-13 0.25 mg ity of 0.25 mg or 00:00: under the [place] 0.5 mg(2 00 skin Medical mg/1.5 mL) weekly. Branch PnIj topiramate 2021-09 Yes [id number] 75mg Take 3 [facility] 25 mg 0-13 tablets by ity of tablet 00:00: mouth in [place] 00 the Medical morning Branch and 3 tablets in the evening. losartan 50 2021-09 Yes [id number] 50mg Take 1 [facility] mg tablet 0-13 tablet by ity o f 00:00: mouth in [place] 00 the Medical morning Branch and 1 tablet in the evening. mirabegron 2021-09 Yes [id number] 50mg Take 1 [facility] (MYRBETRIQ) 0-13 tablet by ity of 50 mg 00:00: mouth in [place] tablet 00 the Medical morning. Branch semaglutide 2021-09 Yes [id number] Inject [facility] (OZEMPIC) 0-13 0.25 mg ity of 0.25 mg or 00:00: under the [place] 0.5 mg(2 00 skin Medical mg/1.5 mL) weekly. Branch PnIj topiramate 2021-09 Yes [id number] 75mg Take 3 [facility] 25 mg 0-13 tablets by ity of tablet 00:00: mouth in [place] the Medical morning Branch and 3 tablets in the evening. losartan 50 2021-09 Yes [id number] 50mg Take 1 [facility] mg tablet 0-13 tablet by ity o f 00:00: mouth in [place] the Medical morning Branch and 1 tablet in the evening. mirabegron 2021-09 Yes [id number] 50mg Take 1 [facility] (MYRBETRIQ) 0-13 tablet by ity of 50 mg 00:00: mouth in [place] tablet 00 the Medical morning. Branch semaglutide 2021-09 Yes [id number] Inject [facility] (OZEMPIC) 0-13 0.25 mg ity of 0.25 mg or 00:00: under the [place] 0.5 mg(2 00 skin Medical mg/1.5 mL) weekly. Branch PnIj topiramate 2021-09 Yes [id number] 75mg Take 3 [facility] 25 mg 0-13 tablets by ity of tablet 00:00: mouth in [place] the Medical morning Branch and 3 tablets in the evening. losartan 50 2021-09 Yes [id number] 50mg Take 1 [facility] mg tablet 0-13 tablet by ity o f 00:00: mouth in [place] the Medical morning Branch and 1 tablet in the evening. mirabegron 2021-09 Yes [id number] 50mg Take 1 [facility] (MYRBETRIQ) 0-13 tablet by ity of 50 mg 00:00: mouth in [place] tablet 00 the Medical morning. Branch semaglutide 2021-09 Yes [id number] Inject [facility] (OZEMPIC) 0-13 0.25 mg ity of 0.25 mg or 00:00: under the [place] 0.5 mg(2 00 skin Medical mg/1.5 mL) weekly. Branch PnIj topiramate 2021-09 Yes [id number] 75mg Take 3 [facility] 25 mg 0-13 tablets by ity of tablet 00:00: mouth in [place] 00 the Medical morning Branch and 3 tablets in the evening. losartan 50 2021-09 Yes [id number] 50mg Take 1 [facility] mg tablet 0-13 tablet by ity o f 00:00: mouth in [place] 00 the Medical morning Branch and 1 tablet in the evening. mirabegron 2021-09 Yes [id number] 50mg Take 1 [facility] (MYRBETRIQ) 0-13 tablet by ity of 50 mg 00:00: mouth in [place] tablet 00 the Medical morning. Branch semaglutide 2021-09 Yes [id number] Inject [facility] (OZEMPIC) 0-13 0.25 mg ity of 0.25 mg or 00:00: under the [place] 0.5 mg(2 00 skin Medical mg/1.5 mL) weekly. Branch PnIj topiramate 2021-09 Yes [id number] 75mg Take 3 [facility] 25 mg 0-13 tablets by ity of tablet 00:00: mouth in [place] the Medical morning Branch and 3 tablets in the evening. losartan 50 2021-09 Yes [id number] 50mg Take 1 [facility] mg tablet 0-13 tablet by ity o f 00:00: mouth in [place] the Medical morning Branch and 1 tablet in the evening. mirabegron 2021-09 Yes [id number] 50mg Take 1 [facility] (MYRBETRIQ) 0-13 tablet by ity of 50 mg 00:00: mouth in [place] tablet 00 the Medical morning. Branch semaglutide 2021-09 Yes [id number] Inject [facility] (OZEMPIC) 0-13 0.25 mg ity of 0.25 mg or 00:00: under the [place] 0.5 mg(2 00 skin Medical mg/1.5 mL) weekly. Branch PnIj topiramate 2021-09 Yes [id number] 75mg Take 3 [facility] 25 mg 0-13 tablets by ity of tablet 00:00: mouth in [place] 00 the Medical morning Branch and 3 tablets in the evening. losartan 50 2021-09 Yes [id number] 50mg Take 1 [facility] mg tablet 0-13 tablet by ity o f 00:00: mouth in [place] 00 the Medical morning Branch and 1 tablet in the evening. mirabegron 2021-09 Yes [id number] 50mg Take 1 [facility] (MYRBETRIQ) 0-13 tablet by ity of 50 mg 00:00: mouth in [place] tablet 00 the Medical morning. Branch semaglutide 2021-09 Yes [id number] Inject [facility] (OZEMPIC) 0-13 0.25 mg ity of 0.25 mg or 00:00: under the [place] 0.5 mg(2 00 skin Medical mg/1.5 mL) weekly. Branch PnIj topiramate 2021-09 Yes [id number] 75mg Take 3 [facility] 25 mg 0-13 tablets by ity of tablet 00:00: mouth in [place] 00 the Medical morning Branch and 3 tablets in the evening. busPIRone 2021-09- No [id number] 20mg Take 2 [facility] 10 mg 0-10-12 tablets by ity of tablet 00:00: 00:00 mouth in [place] 00 :00 the Medical morning Branch and 2 tablets in the evening. diltiazem 2021-09- No [id number] 120mg Take 1 [facility] 120 mg 24 07-27 capsule by ity of hr capsule 00:00: 00:00 mouth in [place] 00 :00 the Medical morning Branch and 1 capsule in the evening. levothyroxi 2021-09- No [id number] 50ug Take 1 [facility] ne 50 mcg 07-27 tablet by ity of tablet 00:00: 00:00 mouth [place] 00 :00 every Medical morning. Branch metformin 2021-09- No [id number] 500mg Take 1 [facility] ER 500 mg 07-27 tablet by ity of 24 hr 00:00: 00:00 mouth [place] tablet 00 :00 daily with Medical breakfast. Branch STOP REGULAR METFORMIN. pantoprazol 2021-09- No [id number] 40mg Take 1 [facility] e 40 mg EC 07-27 tablet by ity of tablet 00:00: 00:00 mouth in [place] 00 :00 the Medical morning. Branch pregabalin 2021-09- No [id number] 150mg Take 1 [facility] 150 mg 07-27 capsule by ity of capsule 00:00: 00:00 mouth in [place] 00 :00 the Medical morning Branch and 1 capsule at noon and 1 capsule in the evening. rosuvastati 2021-09- No [id number] 10mg Take 1 [facility] n 10 mg 07-27 tablet by ity of tablet 00:00: 00:00 mouth at [place] 00 :00 bedtime. Medical Branch SUMAtriptan 2021-09- No [id number] 50mg Take 1 [facility] 50 mg 07-27 tablet by ity of tablet 00:00: 00:00 mouth as [place] 00 :00 needed for Medical Migraine. Branch diltiazem 2021-09- No [id number] 120mg Take 1 [facility] 120 mg 24 07-27 capsule by ity of hr capsule 00:00: 00:00 mouth in [facility] 00 :00 the Medical morning Branch and 1 capsule in the evening. levothyroxi 2021-09- No [id number] 50ug Take 1 [facility] ne 50 mcg 07-27 tablet by ity of tablet 00:00: 00:00 mouth [place] 00 :00 every Medical morning. Branch metformin 2021-09- No [id number] 500mg Take 1 [facility] ER 500 mg 07-27 tablet by ity of 24 hr 00:00: 00:00 mouth [place] tablet 00 :00 daily with Medical breakfast. Branch STOP REGULAR METFORMIN. pantoprazol 2021-09- No [id number] 40mg Take 1 [facility] e 40 mg EC 07-27 tablet by ity of tablet 00:00: 00:00 mouth in [place] 00 :00 the Medical morning. Branch pregabalin 2021-09- No [id number] 150mg Take 1 [facility] 150 mg 07-27 capsule by ity of capsule 00:00: 00:00 mouth in [place] 00 :00 the Medical morning Branch and 1 capsule at noon and 1 capsule in the evening. rosuvastati 2021-09- No [id number] 10mg Take 1 [facility] n 10 mg 07-27 tablet by ity of tablet 00:00: 00:00 mouth at [place] 00 :00 bedtime. Medical Branch SUMAtriptan 2021-09- No [id number] 50mg Take 1 [facility] 50 mg 0-13 11-01 tablet by ity of tablet 00:00: 00:00 mouth as [place] 00 :00 needed for Medical Migraine. Branch SUMAtriptan Yes [id number] 50mg Take 1 [facility] 50 mg 9-30 tablet by ity of tablet 00:00: mouth as [place] 00 needed for Medical Migraine. Branch SUMAtriptan 0 Yes [id number] 50mg Take 1 [facility] 50 mg 9-30 tablet by ity of tablet 00:00: mouth as [place] 00 needed for Medical Migraine. Branch SUMAtriptan Yes [id number] 50mg Take 1 [facility] 50 mg 9-30 tablet by ity of tablet 00:00: mouth as [place] 00 needed for Medical Migraine. Branch SUMAtriptan Yes [id number] 50mg Take 1 [facility] 50 mg 9-30 tablet by ity of tablet 00:00: mouth as [place] 00 needed for Medical Migraine. Branch SUMAtriptan Yes [id number] 50mg Take 1 [facility] 50 mg 9-30 tablet by ity of tablet 00:00: mouth as [place] 00 needed for Medical Migraine. Branch SUMAtriptan 2021- No [id number] 50mg Take 1 [facility] 50 mg 9-30 10-13 tablet by ity of tablet 00:00: 00:00 mouth as [place] 00 :00 needed for Medical Migraine. Branch FOLIC ACID Yes Take by [facility] ers ORAL 06-17 mouth ity of 10:41: daily. [place] 15 Medical Branch MULTIVIT Yes [facility] &[facility]ER[facility]/F 06-17 mouth. ity of ERROUS FUM 10:41: [place] (MULTI 15 Medical VITAMIN Branch ORAL) METHYLCELLU Yes [facility] s LOSE (FIBER 06-17 ity of THERAPY 10:41: [place] MISC) 15 Medical Branch DOCUSATE Yes Take by [facility] s SODIUM 06-17 mouth. ity of [...] - mouth ity of EXTRACT 10:41: daily. [place] (CRANBERRY 15 Medical ORAL) Branch CALCIUM Yes Take by [facility] ORAL - mouth ity of 10:41: daily. [place] 15 Medical Branch DOCOSAHEXAN Yes 1000mg Take 1,000 [facility] OIC 9-22 mg by ity of ACID/EPA 10:41: mouth [place] (FISH OIL 15 daily. Medical ORAL) Branch BIOTIN ORAL Yes Take by [facility] vers 06-17 mouth. ity of 10:41: [place] [id number] Medical Branch FOLIC ACID Yes Take by [facility] ers ORAL 06-17 mouth ity of 10:41: daily. [place] 15 Medical Branch MULTIVIT Yes Take by [facility] &MINERALS/F 06-17 mouth. ity of ERROUS FUM 10:41: [place] (MULTI 15 Medical VITAMIN Branch ORAL) METHYLCELLU Yes [facility] LOSE (FIBER 06-17 ity of THERAPY 10:41: [place] MISC) 15 Medical Branch DOCUSATE Yes Take [...] - mouth ity of EXTRACT 10:41: daily. [place] (CRANBERRY 15 Medical ORAL) Branch CALCIUM Yes Take by [facility] ORAL - mouth ity of 10:41: daily. [place] 15 [facility] Branch DOCOSAHEXAN Yes 1000mg Take 1,000 [facility] OIC 9-22 mg by ity of ACID/EPA 10:41: mouth [place] (FISH OIL 15 daily. Medical ORAL) Branch BIOTIN ORAL Yes Take by Uni vers 9-22 mouth. ity of 10:41: [place] 15 [facility] FOLIC ACID 0 Yes Take by [facility] ers ORAL - mouth ity of 10:41: daily. [place] 15 [facility] MULTIVIT Yes Take by [facility] s &MINERALS/F - mouth. ity of ERROUS FUM 10:41: [place] (MULTI 15 Medical VITAMIN Branch ORAL) METHYLCELLU Yes [facility] s LOSE (FIBER - ity of THERAPY 10:41: [place] MISC) 15 Medical Branch DOCUSATE Yes Take [...] - mouth ity of EXTRACT 10:41: daily. [place] (CRANBERRY 15 Medical ORAL) Branch CALCIUM Yes Take by [facility] ORAL 9-22 mouth ity of 10:41: daily. [place] [facility] DOCOSAHEXAN Yes 1000mg Take 1,000 [facility] OIC 9-22 mg by ity of ACID/EPA 10:41: mouth [place] (FISH OIL 15 daily. Medical ORAL) Branch BIOTIN ORAL Yes Take by Uni vers 9-22 mouth. ity of 10:41: [place] 15 [facility] Branch FOLIC ACID 0 Yes Take by Univ ers ORAL 9- mouth ity of 10:41: daily. [place] 15 [facility] Branch MULTIVIT Yes Take by [facility] s &MINERALS/F - mouth. ity of ERROUS FUM 10:41: [place] (MULTI 15 Medical VITAMIN Branch ORAL) METHYLCELLU 0 Yes Univer s LOSE (FIBER 9-22 ity of THERAPY 10:41: [facility]) 15 Medical Branch [facility]ATE [facility] - mouth. ity of (COLACE 10:41: [place] ORAL) 15 Medical Branch vitamin C Yes 1000mg Take 1,000 [facility] with derrell 9-22 mg by ity of hips 1,000 10:41: mouth [place] mg tablet 15 daily. Medical Branch cholecalcif Yes 1000U Take 1,000 [facility] edmar, 9-22 Units by ity of vitamin D3, 10:41: mouth [place] 25 mcg 15 daily. Medical (1,000 Branch unit) tablet CRANBERRY Yes Take by [facility] rs FRUIT 06-17 mouth ity of EXTRACT 10:41: daily. [place] (CRANBERRY 15 Medical ORAL) Branch CALCIUM Yes Take by [facility] ORAL 06-17 mouth ity of 10:41: daily. [place] 15 [facility] Branch DOCOSAHEXAN Yes 1000mg Take 1,000 [facility] OIC 9-22 mg by ity of ACID/EPA 10:41: mouth [place] (FISH OIL 15 daily. Medical ORAL) Branch BIOTIN ORAL Yes Take by Uni vers 06-17 mouth. ity of 10:41: [place] [address] Medical Branch FOLIC ACID Yes Take by Univ ers ORAL 06-17 mouth ity of 10:41: daily. [place] [address] Medical Branch MULTIVIT Yes [facility] &[facility]/F 06-17 mouth. ity of ERROUS FUM 10:41: [place] (MULTI 15 Medical VITAMIN Branch ORAL) METHYLCELLU Yes [facility] ity of THERAPY 10:41: [facility]) 15 Medical Branch DOCUSATE Yes [facility] SODIUM - mouth. ity of (COLACE 10:41: [place] ORAL) 15 Medical Branch vitamin C Yes [...] - mouth ity of EXTRACT 10:41: daily. [place] (CRANBERRY 15 Medical ORAL) Branch CALCIUM Yes Take by [facility] ORAL - mouth ity of 10:41: daily. [place] 15 [facility] Branch DOCOSAHEXAN Yes 1000mg Take 1,000 [facility] OIC 9-22 mg by ity of ACID/EPA 10:41: mouth [place] (FISH OIL 15 daily. Medical ORAL) Branch BIOTIN ORAL Yes Take by Uni vers - mouth. ity of 10:41: [place] [address] Medical Branch FOLIC ACID Yes Take by [facility] ers ORAL - mouth ity of 10:41: daily. [place] [address] Medical Branch MULTIVIT Yes Take by Univer s &MINERALS/F 06-17 mouth. ity of ERROUS FUM 10:41: [place] (MULTI 15 Medical VITAMIN Branch ORAL) METHYLCELLU Yes Univer s LOSE (FIBER 06-17 ity of THERAPY 10:41: [place] MISC) Medical Branch DOCUSATE Yes Take by Univer s SODIUM 06-17 mouth. ity of (COLACE 10:41: [place] ORAL) 15 Medical Branch vitamin C Yes [...] - mouth ity of EXTRACT 10:41: daily. [place] (CRANBERRY 15 Medical ORAL) Branch CALCIUM Yes Take by [facility] ORAL - mouth ity of 10:41: daily. [place] 15 [facility] Branch DOCOSAHEXAN Yes 1000mg Take 1,000 [facility] OIC 9-22 mg by ity of ACID/EPA 10:41: mouth [place] (FISH OIL 15 daily. Medical ORAL) Branch BIOTIN ORAL Yes Take by Uni vers -22 mouth. ity of 10:41: [place] [address] Medical Branch FOLIC ACID Yes Take by [facility] ers ORAL 9- mouth ity of 10:41: daily. [place] 15 [facility] Branch MULTIVIT Yes Take by Univer s &MINERALS/F -22 mouth. ity of ERROUS FUM 10:41: [place] (MULTI 15 Medical VITAMIN Branch ORAL) METHYLCELLU Yes Univer s LOSE (FIBER 9-22 ity of THERAPY 10:41: [facility]) 15 Medical Branch DOCUSATE Yes Take by [...] - mouth ity of EXTRACT 10:41: daily. [place] (CRANBERRY 15 Medical ORAL) Branch CALCIUM Yes Take by [facility] ORAL - mouth ity of 10:41: daily. [place] [address] Medical Branch DOCOSAHEXAN Yes 1000mg Take 1,000 [facility] OIC 9-22 mg by ity of ACID/EPA 10:41: mouth [place] (FISH OIL 15 daily. Medical ORAL) Branch BIOTIN ORAL Yes Take by Uni vers - mouth. ity of 10:41: [place] [address] Medical Branch FOLIC ACID Yes Take by Univ ers ORAL 9-22 mouth ity of 10:41: daily. [place] [address] Medical Branch MULTIVIT Yes Take by Univer s &MINERALS/F 9-22 mouth. ity of ERROUS FUM 10:41: [place] (MULTI 15 Medical VITAMIN Branch ORAL) METHYLCELLU 0 Yes Univer s LOSE (FIBER 9-22 ity of THERAPY 10:41: [facility]) Medical Branch DOCUSATE Yes [facility] SODI[facility] 9-22 mouth. ity [...] - mouth ity of EXTRACT 10:41: daily. [place] (CRANBERRY 15 Medical ORAL) Branch CALCIUM Yes Take by [facility] ORAL 06-17 mouth ity of 10:41: daily. [place] 15 [facility] Branch DOCOSAHEXAN Yes 1000mg Take 1,000 [facility] OIC 9-22 mg by ity of ACID/EPA 10:41: mouth [place] (FISH OIL 15 daily. Medical ORAL) Branch BIOTIN ORAL Yes Take by Uni vers 06-17 mouth. ity of 10:41: [place] 15 [facility] Branch FOLIC ACID Yes Take by [facility] ers ORAL 06-17 mouth ity of 10:41: daily. [place] [address] Medical Branch MULTIVIT Yes Take by Univer s &MINERALS/F 06-17 mouth. ity of ERROUS FUM 10:41: [place] (MULTI 15 Medical VITAMIN Branch ORAL) METHYLCELLU Yes Univer s LOSE (FIBER 06-17 ity of THERAPY 10:41: [facility]) Medical Branch DOCUSATE Yes Take by Univer [...] - mouth ity of EXTRACT 10:41: daily. [place] (CRANBERRY 15 Medical ORAL) Branch CALCIUM Yes Take by [facility] ORAL - mouth ity of 10:41: daily. [place] 15 [facility] Branch DOCOSAHEXAN Yes 1000mg Take 1,000 [facility] OIC 9-22 mg by ity of ACID/EPA 10:41: mouth [place] (FISH OIL 15 daily. Medical ORAL) Branch BIOTIN ORAL Yes Take by Uni vers - mouth. ity of 10:41: [place] 15 [facility] Branch FOLIC ACID Yes Take by Univ ers ORAL - mouth ity of 10:41: daily. [place] 15 [facility] Branch MULTIVIT Yes Take by Univer s &MINERALS/F - mouth. ity of ERROUS FUM 10:41: [place] (MULTI 15 Medical VITAMIN Branch ORAL) METHYLCELLU Yes [facility] (FIBER - ity of THERAPY 10:41: [place] MIS) 15 Medical Branch DOCUSATE Yes Take [...] 06-17 mouth ity of EXTRACT 10:41: daily. [place] (CRANBERRY 15 Medical ORAL) Branch CALCIUM Yes Take by [facility] ORAL - mouth ity of 10:41: daily. [place] [facility] DOCOSAHEXAN Yes 1000mg Take 1,000 [facility] OIC 9-22 mg by ity of ACID/EPA 10:41: mouth [place] (FISH OIL 15 daily. Medical ORAL) Branch BIOTIN ORAL Yes Take by Uni vers - mouth. ity of 10:41: [place] 15 Medical Branch FOLIC ACID Yes Take by Univ ers ORAL - mouth ity of 10:41: daily. [place] [address] Medical Branch MULTIVIT Yes Take by Univer s &MINERALS/F - mouth. ity of ERROUS FUM 10:41: [place] (MULTI 15 Medical VITAMIN Branch ORAL) METHYLCELLU Yes Univer s LOSE (FIBER 9-22 ity of THERAPY 10:41: [facility]) 15 Medical Branch DOCUSATE Yes Take by Univer s SODIUM -22 mouth. ity of (COLACE 10:41: [place] ORAL) 15 Medical Branch vitamin C Yes 1000mg Take 1,000 [facility] with derrell 9-22 mg by ity of hips 1,000 10:41: mouth [place] mg tablet 15 daily. Medical Branch cholecalcif Yes 1000U Take 1,000 [facility] edmar, 9-22 Units by ity of vitamin D3, 10:41: mouth [place] 25 mcg 15 daily. Medical (1,000 Branch unit) tablet CRANBERRY Yes Take by [facility] rs FRUIT 06-17 mouth ity of EXTRACT 10:41: daily. [place] (CRANBERRY 15 Medical ORAL) Branch CALCIUM Yes Take by [facility] ORAL 06-17 mouth ity of 10:41: daily. [place] [address] Medical Branch DOCOSAHEXAN Yes 1000mg Take 1,000 [facility] OIC 9-22 mg by ity of ACID/EPA 10:41: mouth [place] (FISH OIL 15 daily. Medical ORAL) Branch BIOTIN ORAL Yes Take by Uni vers - mouth. ity of 10:41: [place] [address] Medical Branch FOLIC ACID Yes Take by Univ ers ORAL - mouth ity of 10:41: daily. [place] [address] Medical Branch MULTIVIT Yes [facility] &MIN[facility]/F - mouth. ity of ERROUS FUM 10:41: [place] (MULTI 15 Medical VITAMIN Branch ORAL) METHYLCELLU Yes Univer s LOSE (FIBER 9-22 ity of THERAPY 10:41: [facility]) 15 Medical Branch DOCUSATE Yes Take by [facility] SODIUM 9-22 mouth. ity of (COLACE 10:41: [place] ORAL) 15 Medical Branch vitamin C Yes [...] - mouth ity of EXTRACT 10:41: daily. [place] (CRANBERRY 15 Medical ORAL) Branch CALCIUM Yes Take by [facility] ORAL - mouth ity of 10:41: daily. [place] [address] Medical Branch DOCOSAHEXAN Yes 1000mg Take 1,000 [facility] OIC 9-22 mg by ity of ACID/EPA 10:41: mouth [place] (FISH OIL 15 daily. Medical ORAL) Branch BIOTIN ORAL Yes Take by Uni vers - mouth. ity of 10:41: [place] [address] Medical Branch FOLIC ACID Yes Take by Univ ers ORAL - mouth ity of 10:41: daily. [place] [address] Medical Branch MULTIVIT Yes Take by Univer s &MINERALS/F - mouth. ity of ERROUS FUM 10:41: [place] (MULTI 15 Medical VITAMIN Branch ORAL) METHYLCELLU Yes Univer s LOSE (FIBER - ity of THERAPY 10:41: [place] MISC) Medical Branch DOCUSATE Yes Take by [...] - mouth ity of EXTRACT 10:41: daily. [place] (CRANBERRY 15 Medical ORAL) Branch CALCIUM Yes Take by [facility] ORAL -22 mouth ity of 10:41: daily. [place] [address] Medical Branch DOCOSAHEXAN Yes 1000mg Take 1,000 [facility] OIC 9-22 mg by ity of ACID/EPA 10:41: mouth [place] (FISH OIL 15 daily. Medical ORAL) Branch BIOTIN ORAL Yes Take by Uni vers 06-17 mouth. ity of 10:41: [place] 15 Medical Branch FOLIC ACID Yes Take by Univ ers ORAL - mouth ity of 10:41: daily. [place] 15 Medical Branch MULTIVIT Yes Take by Univer s &MINERALS/F 06-17 mouth. ity of ERROUS FUM 10:41: [place] (MULTI 15 Medical VITAMIN Branch ORAL) METHYLCELLU Yes Univer s LOSE (FIBER - ity of THERAPY 10:41: [facility]) 15 Medical Branch DOCUSATE Yes Take by Univer s SODIUM - mouth. ity of (COLACE 10:41: [place] ORAL) 15 Medical Branch vitamin C Yes [...] 06-17 mouth ity of EXTRACT 10:41: daily. [place] (CRANBERRY 15 Medical ORAL) Branch CALCIUM Yes Take by [facility] ORAL 06-17 mouth ity of 10:41: daily. [place] [address] Medical Branch DOCOSAHEXAN Yes 1000mg Take 1,000 [facility] OIC 9-22 mg by ity of ACID/EPA 10:41: mouth [place] (FISH OIL 15 daily. Medical ORAL) Branch BIOTIN ORAL Yes Take by Uni vers - mouth. ity of 10:41: [place] [address] Medical Branch FOLIC ACID Yes Take by Univ ers ORAL - mouth ity of 10:41: daily. [place] [address] Medical Branch MULTIVIT Yes Take by Univer s &MINERALS/F - mouth. ity of ERROUS FUM 10:41: [place] (MULTI 15 Medical VITAMIN Branch ORAL) METHYLCELLU 0 Yes Univer s LOSE (FIBER -22 ity of THERAPY 10:41: [facility]) Medical Branch vitamin C Yes 1000mg Take [...] 06-17 mouth ity of EXTRACT 10:41: daily. [place] (CRANBERRY 15 Medical ORAL) Branch CALCIUM Yes Take by [facility] ORAL 06-17 mouth ity of 10:41: daily. [place] 15 Medical Branch DOCOSAHEXAN Yes 1000mg Take 1,000 [facility] OIC 9-22 mg by ity of ACID/EPA 10:41: mouth [place] (FISH OIL 15 daily. Medical ORAL) Branch BIOTIN ORAL Yes Take by Uni vers 06-17 mouth. ity of 10:41: [place] [address] Medical Branch FOLIC ACID Yes Take by Univ ers ORAL 06-17 mouth ity of 10:41: daily. [place] [address] Medical Branch MULTIVIT Yes [facility] &[facility]/F 06-17 mouth. ity of ERROUS FUM 10:41: [place] (MULTI 15 Medical VITAMIN Branch ORAL) METHYLCELLU Yes [facility] s LOSE (FIBER 06-17 ity of THERAPY 10:41: [place] [facility]) Medical Branch vitamin C Yes 1000mg Take [...] - mouth ity of EXTRACT 10:41: daily. [place] (CRANBERRY 15 Medical ORAL) Branch CALCIUM Yes Take by [facility] ORAL - mouth ity of 10:41: daily. [place] 15 Medical Branch DOCOSAHEXAN Yes 1000mg Take 1,000 [facility] OIC 9-22 mg by ity of ACID/EPA 10:41: mouth [place] (FISH OIL 15 daily. Medical ORAL) Branch BIOTIN ORAL 0 Yes Take by Uni vers - mouth. ity of 10:41: [place] 15 Medical Branch FOLIC ACID 0 Yes Take by Univ ers ORAL - mouth ity of 10:41: daily. [place] 15 Medical Branch MULTIVIT 0 Yes Take by Univer s &MINERALS/F - mouth. ity of ERROUS FUM 10:41: [place] (MULTI 15 Medical VITAMIN Branch ORAL) METHYLCELLU 0 Yes Univer s LOSE (FIBER 9-22 ity of THERAPY 10:41: [facility]) 15 Medical Branch vitamin C 0 Yes [...] - mouth ity of EXTRACT 10:41: daily. [place] (CRANBERRY 15 Medical ORAL) Branch CALCIUM Yes Take by [facility] ORAL - mouth ity of 10:41: daily. [place] 15 Medical Branch DOCOSAHEXAN 0 Yes 1000mg Take 1,000 [facility] OIC 9-22 mg by ity of ACID/EPA 10:41: mouth [place] (FISH OIL 15 daily. Medical ORAL) Branch BIOTIN ORAL Yes Take by Uni vers -22 mouth. ity of 10:41: 15 Medical Branch FOLIC ACID 0 Yes Take by Univ ers ORAL 9- mouth ity of 10:41: daily. [place] 15 Medical Branch MULTIVIT 0 Yes Take by Univer s &MINERALS/F - mouth. ity of ERROUS FUM 10:41: [place] (MULTI 15 Medical VITAMIN Branch ORAL) METHYLCELLU 2021-0 Yes Univer s LOSE (FIBER 9-22 ity of THERAPY 10:41: [place] MIS) 15 Medical Branch vitamin C 0 Yes [...] 06-17 mouth ity of EXTRACT 10:41: daily. [place] (CRANBERRY 15 Medical ORAL) Branch CALCIUM Yes Take by [facility] ORAL 06-17 mouth ity of 10:41: daily. [place] 15 Medical Branch DOCOSAHEXAN Yes 1000mg Take 1,000 [facility] OIC 9-22 mg by ity of ACID/EPA 10:41: mouth [place] (FISH OIL 15 daily. Medical ORAL) Branch BIOTIN ORAL Yes Take by Uni vers 06-17 mouth. ity of 10:41: [place] [address] Medical Branch FOLIC ACID Yes Take by Univ ers ORAL 06-17 mouth ity of 10:41: daily. [place] [address] Medical Branch MULTIVIT Yes Take by Univer s &MINERALS/F 06-17 mouth. ity of ERROUS FUM 10:41: [place] (MULTI 15 Medical VITAMIN Branch ORAL) METHYLCELLU Yes Univer s LOSE (FIBER 06-17 ity of THERAPY 10:41: [facility]) Medical Branch vitamin C Yes 1000mg Take [...] - mouth ity of EXTRACT 10:41: daily. [place] (CRANBERRY 15 Medical ORAL) Branch CALCIUM Yes Take by [facility] ORAL 06-17 mouth ity of 10:41: daily. [place] Medical Branch DOCOSAHEXAN Yes 1000mg Take 1,000 [facility] OIC 9-22 mg by ity of ACID/EPA 10:41: mouth [place] (FISH OIL 15 daily. Medical ORAL) Branch BIOTIN ORAL Yes Take by Uni vers 06-17 mouth. ity of 10:41: [place] 15 Medical Branch FOLIC ACID 0 Yes Take by Univ ers ORAL 06-17 mouth ity of 10:41: daily. [place] 15 Medical Branch MULTIVIT 0 Yes Take by Univer s &MINERALS/F 06-17 mouth. ity of ERROUS FUM 10:41: [place] (MULTI 15 Medical VITAMIN Branch ORAL) METHYLCELLU 0 Yes Univer s LOSE (FIBER 06-17 ity of THERAPY 10:41: [facility]) 15 Medical Branch vitamin C 0 Yes 1000mg Take 1,000 [facility] with derrell 9-22 mg by ity of hips 1,000 10:41: mouth [place] mg tablet 15 daily. Medical Branch cholecalcif 0 Yes 1000U Take 1,000 [facility] edmar, 9-22 Units by ity of vitamin D3, 10:41: mouth [place] 25 mcg 15 daily. Medical (1,000 Branch unit) tablet CRANBERRY Yes Take by [facility] rs FRUIT 06-17 mouth ity of EXTRACT 10:41: daily. [place] (CRANBERRY 15 Medical ORAL) Branch CALCIUM Yes Take by [facility] ORAL 06-17 mouth ity of 10:41: daily. [place] 15 Medical Branch DOCOSAHEXAN Yes 1000mg Take 1,000 [facility] OIC 9-22 mg by ity of ACID/EPA 10:41: mouth [place] (FISH OIL 15 daily. Medical ORAL) Branch BIOTIN ORAL Yes Take by Uni vers 06-17 mouth. ity of 10:41: [place] 15 Medical Branch FOLIC ACID 0 Yes Take by Univ ers ORAL 06-17 mouth ity of 10:41: daily. [place] 15 Medical Branch MULTIVIT 0 Yes Take by Univer s &MINERALS/F 06-17 mouth. ity of ERROUS FUM 10:41: [place] (MULTI 15 Medical VITAMIN Branch ORAL) METHYLCELLU 2021-0 Yes Univer s LOSE (FIBER - ity of THERAPY 10:41: [facility]) Medical Branch vitamin C 0 Yes 1000mg [...] - mouth ity of EXTRACT 10:41: daily. [place] (CRANBERRY 15 Medical ORAL) Branch CALCIUM Yes Take by [facility] ORAL - mouth ity of 10:41: daily. [place] 15 Medical Branch DOCOSAHEXAN Yes 1000mg Take 1,000 [facility] OIC 9-22 mg by ity of ACID/EPA 10:41: mouth [place] (FISH OIL 15 daily. Medical ORAL) Branch BIOTIN ORAL Yes Take by Uni vers 06-17 mouth. ity of 10:41: [place] [address] Medical Branch FOLIC ACID Yes Take by Univ ers ORAL 06-17 mouth ity of 10:41: daily. [place] [address] Medical Branch MULTIVIT Yes [facility] &[facility]/F 06-17 mouth. ity of ERROUS FUM 10:41: [place] (MULTI 15 Medical VITAMIN Branch ORAL) METHYLCELLU Yes Univer s LOSE (FIBER 06-17 ity of THERAPY 10:41: [place] MIS) Medical Branch vitamin C Yes 1000mg [...] - mouth ity of EXTRACT 10:41: daily. [place] (CRAN[place]ERRY 15 Medical ORAL) Branch CALCIUM Yes Take by [facility] ORAL - mouth ity of 10:41: daily. [place] 15 Medical Branch DOCOSAHEXAN Yes 1000mg Take 1,000 [facility] OIC 9-22 mg by ity of ACID/EPA 10:41: mouth [place] (FISH OIL 15 daily. Medical ORAL) Branch BIOTIN ORAL Yes Take by Uni vers 06-17 mouth. ity of 10:41: [place] [address] Medical Branch FOLIC ACID 2022-0 Yes Take by Univ ers ORAL - mouth ity of 10:41: daily. [place] 15 Medical Branch MULTIVIT Yes Take by Unive rs &MINERALS/F - mouth. ity of ERROUS FUM 10:41: [place] (MULTI 15 Medical VITAMIN Branch ORAL) METHYLCELLU 0 Yes Univer s LOSE (FIBER 9-22 ity of THERAPY 10:41: [facility]) 15 Medical Branch vitamin C 0 Yes [...] - mouth ity of EXTRACT 10:41: daily. [place] (CRANBERRY 15 Medical ORAL) Branch CALCIUM Yes Take by [facility] ORAL - mouth ity of 10:41: daily. [place] [address] Medical Branch DOCOSAHEXAN 0 Yes 1000mg Take 1,000 [facility] OIC 9-22 mg by ity of ACID/EPA 10:41: mouth [place] (FISH OIL 15 daily. Medical ORAL) Branch BIOTIN ORAL 0 Yes Take by Uni vers - mouth. ity of 10:41: [place] [address] Medical Branch FOLIC ACID 0 Yes Take by Univ ers ORAL - mouth ity of 10:41: daily. [place] 15 Medical Branch MULTIVIT Yes Take by Univer s &MINERALS/F - mouth. ity of ERROUS FUM 10:41: [place] (MULTI 15 Medical VITAMIN Branch ORAL) METHYLCELLU 2021-0 Yes Univer s LOSE (FIBER 9-22 ity of THERAPY 10:41: [place] [facility]) Medical Branch vitamin C 0 Yes 1000mg [...] 06-17 mouth ity of EXTRACT 10:41: daily. [place] (CRANBERRY 15 Medical ORAL) Branch CALCIUM Yes Take by [facility] ORAL - mouth ity of 10:41: daily. [place] [address] Medical Branch DOCOSAHEXAN Yes 1000mg Take 1,000 [facility] OIC 9-22 mg by ity of ACID/EPA 10:41: mouth [place] (FISH OIL 15 daily. Medical ORAL) Branch BIOTIN ORAL Yes Take by Uni vers 06-17 mouth. ity of 10:41: [place] [address] Medical Branch FOLIC ACID Yes Take by Univ ers ORAL 06-17 mouth ity of 10:41: daily. [place] [address] Medical Branch MULTIVIT Yes Take by Univer s &MINERALS/F 06-17 mouth. ity of ERROUS FUM 10:41: [place] (MULTI 15 Medical VITAMIN Branch ORAL) METHYLCELLU Yes [facility] (FIBER [facility]-17 ity of THERAPY 10:41: [facility]) Medical Branch vitamin C Yes 1000mg Take [...] - mouth ity of EXTRACT 10:41: daily. [place] (CRANBERRY 15 Medical ORAL) Branch CALCIUM Yes Take by [facility] ORAL - mouth ity of 10:41: daily. [place] [address] Medical Branch DOCOSAHEXAN Yes 1000mg Take 1,000 [facility] OIC 9-22 mg by ity of ACID/EPA 10:41: mouth [place] (FISH OIL 15 daily. Medical ORAL) Branch BIOTIN ORAL Yes Take by Uni vers 06-17 mouth. ity of 10:41: [place] [address] Medical Branch FOLIC ACID Yes Take by Univ ers ORAL - mouth ity of 10:41: daily. [place] 15 Medical Branch MULTIVIT Yes Take by Univer s &MINERALS/F - mouth. ity of ERROUS FUM 10:41: [place] (MULTI 15 Medical VITAMIN Branch ORAL) METHYLCELLU 0 Yes Univer s LOSE (FIBER - ity of THERAPY 10:41: [facility]) 15 Medical Branch vitamin C Yes 1000mg [...] - mouth ity of EXTRACT 10:41: daily. [place] (CRANBERRY 15 Medical ORAL) Branch CALCIUM Yes Take by [facility] ORAL - mouth ity of 10:41: daily. [place] 15 Medical Branch DOCOSAHEXAN Yes 1000mg Take 1,000 [facility] OIC 9-22 mg by ity of ACID/EPA 10:41: mouth [place] (FISH OIL 15 daily. Medical ORAL) Branch BIOTIN ORAL Yes Take by Uni vers - mouth. ity of 10:41: [place] [address] Medical Branch FOLIC ACID 0 Yes Take by Univ ers ORAL - mouth ity of 10:41: daily. [place] [address] Medical Branch MULTIVIT Yes Take by Univer s &MINERALS/F - mouth. ity of ERROUS FUM 10:41: [place] (MULTI 15 Medical VITAMIN Branch ORAL) METHYLCELLU 2021-0 Yes Univer s LOSE (FIBER 9-22 ity of THERAPY 10:41: [facility]) Medical Branch vitamin C 0 Yes 1000mg Take 1,000 [facility] with derrell 9-22 mg by ity of hips 1,000 10:41: mouth [place] mg tablet 15 daily. Medical Branch cholecalcif 0 Yes 1000U Take 1,000 [facility] edmar, 9-22 Units by ity of vitamin D3, 10:41: mouth [place] 25 mcg 15 daily. Medical (1,000 Branch unit) tablet CRANBERRY 0 Yes Take by Unive rs FRUIT 9-22 mouth ity of EXTRACT 10:41: daily. [place] (CRANBERRY 15 Medical ORAL) Branch CALCIUM Yes Take by [facility] ORAL 9- mouth ity of 10:41: daily. [place] [address] Medical Branch DOCOSAHEXAN Yes 1000mg Take 1,000 [facility] OIC 9-22 mg by ity of ACID/EPA 10:41: mouth [place] (FISH OIL 15 daily. Medical ORAL) Branch BIOTIN ORAL Yes Take by Uni vers - mouth. ity of 10:41: [place] [address] Medical Branch FOLIC ACID Yes Take by Univ ers ORAL 06-17 mouth ity of 10:41: daily. [place] [address] Medical Branch MULTIVIT Yes Take by Univer s &MINERALS/F 06-17 mouth. ity of ERROUS FUM 10:41: [place] (MULTI 15 Medical VITAMIN Branch ORAL) METHYLCELLU Yes Univer s LOSE (FIBER 06-17 ity of THERAPY 10:41: [facility]) Medical Branch vitamin C Yes 1000mg Take [...] 06-17 mouth ity of EXTRACT 10:41: daily. [place] (CRANBERRY 15 Medical ORAL) Branch CALCIUM Yes Take by Univer s ORAL - mouth ity of 10:41: daily. [place] [address] Medical Branch DOCOSAHEXAN Yes 1000mg Take 1,000 [facility] OIC 9-22 mg by ity of ACID/EPA 10:41: mouth [place] (FISH OIL 15 daily. Medical ORAL) Branch BIOTIN ORAL Yes Take by Uni vers - mouth. ity of 10:41: [place] [address] Medical Branch FOLIC ACID Yes Take by Univ ers ORAL - mouth ity of 10:41: daily. [place] [address] Medical Branch MULTIVIT Yes Take by Univer s &MINERALS/F 9-22 mouth. ity of ERROUS FUM 10:41: [place] (MULTI 15 Medical VITAMIN Branch ORAL) METHYLCELLU 2021-0 Yes Univer s LOSE (FIBER -22 ity of THERAPY 10:41: [facility]) 15 Medical Branch vitamin C 0 Yes [...] - mouth ity of EXTRACT 10:41: daily. [place] (CRANBERRY 15 Medical ORAL) Branch CALCIUM Yes Take by [facility] ORAL - mouth ity of 10:41: daily. [place] 15 Medical Branch DOCOSAHEXAN Yes 1000mg Take 1,000 [facility] OIC 9-22 mg by ity of ACID/EPA 10:41: mouth [place] (FISH OIL 15 daily. Medical ORAL) Branch BIOTIN ORAL Yes Take by Uni vers - mouth. ity of 10:41: [place] [address] Medical Branch FOLIC ACID 0 Yes Take by Univ ers ORAL - mouth ity of 10:41: daily. [place] [address] Medical Branch MULTIVIT Yes Take by Univer s &MINERALS/F - mouth. ity of ERROUS FUM 10:41: [place] (MULTI 15 Medical VITAMIN Branch ORAL) METHYLCELLU 2021-0 Yes Univer s LOSE (FIBER 9-22 ity of THERAPY 10:41: [facility]) Medical Branch vitamin C Yes 1000mg Take [...] -22 mouth ity of EXTRACT 10:41: daily. [place] (CRANBERRY 15 Medical ORAL) Branch CALCIUM Yes Take by Univers ORAL 9-22 mouth ity of 10:41: daily. [place] 15 Medical Branch DOCOSAHEXAN Yes 1000mg Take 1,000 [facility] OIC 9-22 mg by ity of ACID/EPA 10:41: mouth [place] (FISH OIL 15 daily. Medical ORAL) Branch BIOTIN ORAL Yes Take by Uni vers - mouth. ity of 10:41: [place] 15 Medical Branch FOLIC ACID 0 Yes Take by Univ ers ORAL - mouth ity of 10:41: daily. [place] [address] Medical Branch MULTIVIT Yes Take by Univer s &MINERALS/F - mouth. ity of ERROUS FUM 10:41: [place] (MULTI 15 Medical VITAMIN Branch ORAL) METHYLCELLU Yes Univer s LOSE (FIBER - ity of THERAPY 10:41: [facility]) Medical Branch vitamin C Yes 1000mg Take [...] - mouth ity of EXTRACT 10:41: daily. [place] (CRANBERRY 15 Medical ORAL) Branch CALCIUM Yes Take by Univers ORAL 9- mouth ity of 10:41: daily. [place] [address] Medical Branch DOCOSAHEXAN Yes 1000mg Take 1,000 [facility] OIC 9-22 mg by ity of ACID/EPA 10:41: mouth [place] (FISH OIL 15 daily. Medical ORAL) Branch BIOTIN ORAL Yes Take by Uni vers 9-22 mouth. ity of 10:41: [place] [address] Medical Branch FOLIC ACID 0 Yes Take by Univ ers ORAL 9- mouth ity of 10:41: daily. [place] [address] Medical Branch MULTIVIT Yes Take by Univer s &MINERALS/F - mouth. ity of ERROUS FUM 10:41: [place] (MULTI 15 Medical VITAMIN Branch ORAL) METHYLCELLU 2022-0 Yes Univer s LOSE (FIBER 9-22 ity of THERAPY 10:41: [facility]) 15 Medical Branch vitamin C 2021-0 Yes 1000mg Take 1,000 [facility] with derrell [...] - mouth ity of EXTRACT 10:41: daily. [place] (CRANBERRY 15 Medical ORAL) Branch CALCIUM Yes Take by [facility] ORAL - mouth ity of 10:41: daily. [place] 15 Medical Branch DOCOSAHEXAN Yes 1000mg Take 1,000 [facility] OIC 9-22 mg by ity of ACID/EPA 10:41: mouth [place] (FISH OIL 15 daily. Medical ORAL) Branch BIOTIN ORAL Yes Take by Uni vers 06-17 mouth. ity of 10:41: [place] [address] Medical Branch FOLIC ACID 0 Yes Take by Univ ers ORAL - mouth ity of 10:41: daily. [place] [address] Medical Branch MULTIVIT Yes Take by Univer s &MINERALS/F - mouth. ity of ERROUS FUM 10:41: [place] (MULTI 15 Medical VITAMIN Branch ORAL) METHYLCELLU 2021-0 Yes Univer s LOSE (FIBER 9-22 ity of THERAPY 10:41: [facility]) 15 Medical Branch vitamin C 0 Yes [...] - mouth ity of EXTRACT 10:41: daily. [place] (CRANBERRY 15 Medical ORAL) Branch CALCIUM 0 Yes Take by [facility] ORAL - mouth ity of 10:41: daily. [place] 15 Medical Branch DOCOSAHEXAN Yes 1000mg Take 1,000 [facility] OIC 9-22 mg by ity of ACID/EPA 10:41: mouth [place] (FISH OIL 15 daily. Medical ORAL) Branch BIOTIN ORAL 0 Yes Take by Uni vers 9-22 mouth. ity of 10:41: [place] 15 Medical Branch FOLIC ACID 0 Yes Take by Univ ers ORAL 9-22 mouth ity of 10:41: daily. [place] 15 Medical Branch MULTIVIT 0 Yes Take by Univer s &MINERALS/F - mouth. ity of ERROUS FUM 10:41: [place] (MULTI 15 Medical VITAMIN Branch ORAL) METHYLCELLU 0 Yes Univer s LOSE (FIBER - ity of THERAPY 10:41: [facility]) Medical Branch vitamin C Yes 1000mg Take [...] - mouth ity of EXTRACT 10:41: daily. [place] (CRANBERRY 15 Medical ORAL) Branch CALCIUM Yes Take by [facility] ORAL 9-22 mouth ity of 10:41: daily. [place] [address] Medical Branch DOCOSAHEXAN Yes 1000mg Take 1,000 [facility] OIC 9-22 mg by ity of ACID/EPA 10:41: mouth [place] (FISH OIL 15 daily. Medical ORAL) Branch BIOTIN ORAL 0 Yes Take by Uni vers 9-22 mouth. ity of 10:41: [place] [address] Medical Branch FOLIC ACID 0 Yes Take by Univ ers ORAL 9-22 mouth ity of 10:41: daily. [place] [address] Medical Branch MULTIVIT 0 Yes Take by Univer s &MINERALS/F - mouth. ity of ERROUS FUM 10:41: [place] (MULTI 15 Medical VITAMIN Branch ORAL) METHYLCELLU 2021-0 Yes Univer s LOSE (FIBER 9-22 ity of THERAPY 10:41: [facility]) 15 Medical Branch vitamin C Yes 1000mg [...] 06-17 mouth ity of EXTRACT 10:41: daily. [place] (CRANBERRY 15 Medical ORAL) Branch CALCIUM Yes Take by [facility] ORAL 06-17 mouth ity of 10:41: daily. [place] [address] Medical Branch DOCOSAHEXAN Yes 1000mg Take 1,000 [facility] OIC 9-22 mg by ity of ACID/EPA 10:41: mouth [place] (FISH OIL 15 daily. Medical ORAL) Branch BIOTIN ORAL Yes Take by Uni vers 06-17 mouth. ity of 10:41: [place] [address] Medical Branch FOLIC ACID Yes Take by Univ ers ORAL 06-17 mouth ity of 10:41: daily. [place] [address] Medical Branch MULTIVIT Yes Take by Univer s &MINERALS/F 06-17 mouth. ity of ERROUS FUM 10:41: [place] (MULTI 15 Medical VITAMIN Branch ORAL) METHYLCELLU Yes Univer s LOSE (FIBER 06-17 ity of THERAPY 10:41: [facility]) 15 Medical Branch vitamin C Yes 1000mg [...] - mouth ity of EXTRACT 10:41: daily. [place] (CRANBERRY 15 Medical ORAL) Branch CALCIUM Yes Take by [facility] ORAL - mouth ity of 10:41: daily. [place] [address] Medical Branch DOCOSAHEXAN Yes 1000mg Take 1,000 [facility] OIC 9-22 mg by ity of ACID/EPA 10:41: mouth [place] (FISH OIL 15 daily. Medical ORAL) Branch BIOTIN ORAL 0 Yes Take by Uni vers -22 mouth. ity of 10:41: [place] 15 Medical Branch FOLIC ACID 0 Yes Take by Univ ers ORAL - mouth ity of 10:41: daily. [place] 15 Medical Branch MULTIVIT 0 Yes Take by Univer s &MINERALS/F - mouth. ity of ERROUS FUM 10:41: [place] (MULTI 15 Medical VITAMIN Branch ORAL) METHYLCELLU 0 Yes Univer s LOSE (FIBER 9-22 ity of THERAPY 10:41: [facility]) 15 Medical Branch vitamin C Yes 1000mg [...] - mouth ity of EXTRACT 10:41: daily. [place] (CRANBERRY 15 Medical ORAL) Branch CALCIUM Yes Take by [facility] ORAL - mouth ity of 10:41: daily. [place] 15 Medical Branch DOCOSAHEXAN Yes 1000mg Take 1,000 [facility] OIC 9-22 mg by ity of ACID/EPA 10:41: mouth [place] (FISH OIL 15 daily. Medical ORAL) Branch BIOTIN ORAL Yes Take by Uni vers -22 mouth. ity of 10:41: [place] 15 Medical Branch FOLIC ACID 0 Yes Take by Univ ers ORAL 9- mouth ity of 10:41: daily. [place] 15 Medical Branch MULTIVIT 0 Yes Take by Univer s &MINERALS/F - mouth. ity of ERROUS FUM 10:41: [place] (MULTI 15 Medical VITAMIN Branch ORAL) METHYLCELLU 0 Yes Univer s LOSE (FIBER 9-22 ity of THERAPY 10:41: [facility]) 15 Medical Branch vitamin C 0 Yes [...] 06-17 mouth ity of EXTRACT 10:41: daily. [place] (CRANBERRY 15 Medical ORAL) Branch CALCIUM Yes Take by [facility] ORAL 06-17 mouth ity of 10:41: daily. [place] 15 Medical Branch DOCOSAHEXAN Yes 1000mg Take 1,000 [facility] OIC 9-22 mg by ity of ACID/EPA 10:41: mouth [place] (FISH OIL 15 daily. Medical ORAL) Branch BIOTIN ORAL Yes Take by Uni vers 06-17 mouth. ity of 10:41: [place] [address] Medical Branch FOLIC ACID Yes Take by Univ ers ORAL 06-17 mouth ity of 10:41: daily. [place] [address] Medical Branch [facility]IVIT [facility]-17 mouth. ity of ERROUS FUM 10:41: [place] (MULTI 15 Medical VITAMIN Branch ORAL) METHYLCELLU Yes [facility] s LOSE (FIBER 06-17 ity of THERAPY 10:41: [place] [facility]) Medical Branch vitamin C Yes 1000mg Take [...] - mouth ity of EXTRACT 10:41: daily. [place] (CRANBERRY 15 Medical ORAL) Branch CALCIUM Yes Take by Univers ORAL - mouth ity of 10:41: daily. [place] 15 Medical Branch DOCOSAHEXAN Yes 1000mg Take 1,000 [facility] OIC 9-22 mg by ity of ACID/EPA 10:41: mouth [place] (FISH OIL 15 daily. Medical ORAL) Branch BIOTIN ORAL Yes Take by Uni vers 06-17 mouth. ity of 10:41: Medical Branch FOLIC ACID Yes Take by Univ ers ORAL 06-17 mouth ity of 10:41: daily. [place] [address] Medical Branch MULTIVIT Yes [facility] &[facility]/F 06-17 mouth. ity of ERROUS FUM 10:41: [place] (MULTI 15 Medical VITAMIN Branch ORAL) METHYLCELLU [...] 06-17 mouth ity of EXTRACT 10:41: daily. [place] (CRANBERRY 15 Medical ORAL) Branch CALCIUM Yes Take by [facility] ORAL 06-17 mouth ity of 10:41: daily. [place] [address] Medical Branch DOCOSAHEXAN Yes 1000mg Take 1,000 [facility] OIC 9-22 mg by ity of ACID/EPA 10:41: mouth [place] (FISH OIL 15 daily. Medical ORAL) Branch BIOTIN ORAL Yes Take by Uni vers 06-17 mouth. ity of 10:41: [place] [address] Medical Branch SUMAtriptan Yes [id number] 50mg Take 1 [facility] 50 mg 9-22 tablet by ity of tablet 00:00: mouth as [place] 00 needed for Medical Migraine. Branch topiramate 0 Yes [id number] 75mg Take 3 [facility] 25 mg 9-22 tablets by ity of tablet 00:00: mouth in [place] 00 the Medical morning Branch and 3 tablets in the evening. SUMAtriptan 0 Yes [id number] 50mg Take 1 [facility] 50 mg 9-22 tablet by ity of tablet 00:00: mouth as [place] 00 needed for Medical Migraine. Branch topiramate Yes [id number] 75mg Take 3 [facility] 25 mg 9-22 tablets by ity of tablet 00:00: mouth in [place] 00 the Medical morning Branch and 3 tablets in the evening. SUMAtriptan 2022-0 Yes [id number] 50mg Take 1 [facility] 50 mg 9-22 tablet by ity of tablet 00:00: mouth as [place] [address] needed for Medical Migraine. Branch topiramate 2022-0 Yes [id number] 75mg Take 3 [facility] 25 mg 9-22 tablets by ity of tablet 00:00: mouth in [place] 00 the Medical morning Branch and 3 tablets in the evening. SUMAtriptan 2022-0 Yes [id number] 50mg Take 1 [facility] 50 mg 9-22 tablet by ity of tablet 00:00: mouth as [place] [address] needed for Medical Migraine. Branch topiramate 2022-0 Yes [id number] 75mg Take 3 [facility] 25 mg 9-22 tablets by ity of tablet 00:00: mouth in [place] 00 the Medical morning Branch and 3 tablets in the evening. topiramate 2022-0 Yes [id number] 75mg Take 3 [facility] 25 mg 9-22 tablets by ity of tablet 00:00: mouth in [place] 00 the Medical morning Branch and 3 tablets in the evening. topiramate 2022-0 Yes [id number] 75mg Take 3 [facility] 25 mg 9-22 tablets by ity of tablet 00:00: mouth in [place] 00 the Medical morning Branch and 3 tablets in the evening. topiramate 2022-0 Yes [id number] 75mg Take 3 [facility] 25 mg 9-22 tablets by ity of tablet 00:00: mouth in [place] 00 the Medical morning Branch and 3 tablets in the evening. topiramate 2022-0 Yes [id number] 75mg Take 3 [facility] 25 mg 9-22 tablets by ity of tablet 00:00: mouth in [place] 00 the Medical morning Branch and 3 tablets in the evening. topiramate 2022-0 Yes [id number] 75mg Take 3 [facility] 25 mg 9-22 tablets by ity of tablet 00:00: mouth in [place] [address] the Medical morning Branch and 3 tablets in the evening. topiramate 2022-0 Yes [id number] 75mg Take 3 [facility] 25 mg 9-22 tablets by ity of tablet 00:00: mouth in [place] 00 the Medical morning Branch and 3 tablets in the evening. topiramate 2021- No [id number] 75mg Take 3 [facility] 25 mg 9-22 10-13 tablets by ity of tablet 00:00: 00:00 mouth in [place] 00 :00 the Medical morning Branch and 3 tablets in the evening. SUMAtriptan 2021- No [id number] 50mg Take 1 [facility] 50 mg 9-22 09-30 tablet by ity of tablet 00:00: 00:00 mouth as [place] 00 :00 needed for Medical Migraine. Branch pantoprazol Yes [id number] 40mg Take 1 [facility] e 40 mg EC 9-16 tablet by ity of tablet 00:00: mouth in [place] 00 the Medical morning. Branch Simethicone Yes [id number] 125mg Take 1 [facility] 125 mg 9-16 capsule by ity of 00:00: mouth [place] 00 after Medical meals and Branch at bedtime as needed for Gas (Per bowel prep). pantoprazol Yes [id number] 40mg Take 1 [facility] e 40 mg EC 9-16 tablet by ity of tablet 00:00: mouth in [place] 00 the Medical morning. Branch Simethicone Yes [id number] 125mg Take 1 [facility] 125 mg 9-16 capsule by ity of 00:00: mouth [place] 00 after Medical meals and Branch at bedtime as needed for Gas (Per bowel prep). pantoprazol Yes [id number] 40mg Take 1 [facility] e 40 mg EC 9-16 tablet by ity of tablet 00:00: mouth in [place] 00 the Medical morning. Branch Simethicone 0 Yes [id number] 125mg Take 1 [facility] 125 mg 9-16 capsule by ity of 00:00: mouth [place] 00 after Medical meals and Branch at bedtime as needed for Gas (Per bowel prep). pantoprazol Yes [id number] 40mg Take 1 [facility] e 40 mg EC 9-16 tablet by ity of tablet 00:00: mouth in [place] 00 the Medical morning. Branch Simethicone Yes [id number] 125mg Take 1 [facility] 125 mg 9-16 capsule by ity of 00:00: mouth [place] 00 after Medical meals and Branch at bedtime as needed for Gas (Per bowel prep). pantoprazol 2021-0 Yes [id number] 40mg Take 1 [facility] e 40 mg EC 9-16 tablet by ity of tablet 00:00: mouth in [place] 00 the Medical morning. Branch Simethicone 2021-0 Yes [id number] 125mg Take 1 [facility] 125 mg 9-16 capsule by ity of 00:00: mouth [place] 00 after Medical meals and Branch at bedtime as needed for Gas (Per bowel prep). pantoprazol 2021-0 Yes [id number] 40mg Take 1 [facility] e 40 mg EC 9-16 tablet by ity of tablet 00:00: mouth in [place] 00 the Medical morning. Branch Simethicone 0 Yes [id number] 125mg Take 1 [facility] 125 mg 9-16 capsule by ity of 00:00: mouth [place] 00 after Medical meals and Branch at bedtime as needed for Gas (Per bowel prep). pantoprazol 0 Yes [id number] 40mg Take 1 [facility] e 40 mg EC 9-16 tablet by ity of tablet 00:00: mouth in [place] 00 the Medical morning. Branch Simethicone 0 Yes [id number] 125mg Take 1 [facility] 125 mg 9-16 capsule by ity of 00:00: mouth [place] 00 after Medical meals and Branch at bedtime as needed for Gas (Per bowel prep). pantoprazol 0 Yes [id number] 40mg Take 1 [facility] e 40 mg EC 9-16 tablet by ity of tablet 00:00: mouth in [place] 00 the Medical morning. Branch Simethicone 0 Yes [id number] 125mg Take 1 [facility] 125 mg 9-16 capsule by ity of 00:00: mouth [place] 00 after Medical meals and Branch at bedtime as needed for Gas (Per bowel prep). pantoprazol 2021-0 Yes [id number] 40mg Take 1 [facility] e 40 mg EC 9-16 tablet by ity of tablet 00:00: mouth in [place] 00 the Medical morning. Branch Simethicone 0 Yes [id number] 125mg Take 1 [facility] 125 mg 9-16 capsule by ity of 00:00: mouth [place] 00 after Medical meals and Branch at bedtime as needed for Gas (Per bowel prep). pantoprazol 2021-0 Yes [id number] 40mg Take 1 [facility] e 40 mg EC 9-16 tablet by ity of tablet 00:00: mouth in [place] 00 the Medical morning. Branch Simethicone 2021-0 Yes [id number] 125mg Take 1 [facility] 125 mg 9-16 capsule by ity of 00:00: mouth [place] 00 after Medical meals and Branch at bedtime as needed for Gas (Per bowel prep). pantoprazol 2021-0 Yes [id number] 40mg Take 1 [facility] e 40 mg EC 9-16 tablet by ity of tablet 00:00: mouth in [place] 00 the Medical morning. Branch Simethicone 2021-0 Yes [id number] 125mg Take 1 [facility] 125 mg 9-16 capsule by ity of 00:00: mouth [place] 00 after Medical meals and Branch at bedtime as needed for Gas (Per bowel prep). pantoprazol 2021-0 Yes [id number] 40mg Take 1 [facility] e 40 mg EC 9-16 tablet by ity of tablet 00:00: mouth in [place] 00 the Medical morning. Branch Simethicone 2021-0 Yes [id number] 125mg Take 1 [facility] 125 mg 9-16 capsule by ity of 00:00: mouth [place] 00 after Medical meals and Branch at bedtime as needed for Gas (Per bowel prep). pantoprazol 2021-0 Yes [id number] 40mg Take 1 [facility] e 40 mg EC 9-16 tablet by ity of tablet 00:00: mouth in [place] 00 the Medical morning. Branch Simethicone 2021-0 Yes [id number] 125mg Take 1 [facility] 125 mg 9-16 capsule by ity of 00:00: mouth [place] 00 after Medical meals and Branch at bedtime as needed for Gas (Per bowel prep). pantoprazol 2021-0 Yes [id number] 40mg Take 1 [facility] e 40 mg EC 9-16 tablet by ity of tablet 00:00: mouth in [place] 00 the Medical morning. Branch Simethicone 2021-0 Yes [id number] 125mg Take 1 [facility] 125 mg 9-16 capsule by ity of 00:00: mouth [place] 00 after Medical meals and Branch at bedtime as needed for Gas (Per bowel prep). pantoprazol 2021-0 Yes [id number] 40mg Take 1 [facility] e 40 mg EC 9-16 tablet by ity of tablet 00:00: mouth in [place] 00 the Medical morning. Branch Simethicone 2021-0 Yes [id number] 125mg Take 1 [facility] 125 mg 9-16 capsule by ity of 00:00: mouth [place] 00 after Medical meals and Branch at bedtime as needed for Gas (Per bowel prep). Simethicone 2021-0 Yes [id number] 125mg Take 1 [facility] 125 mg 9-16 capsule by ity of 00:00: mouth [place] 00 after Medical meals and Branch at bedtime as needed for Gas (Per bowel prep). Simethicone 2021-0 Yes [id number] 125mg Take 1 [facility] 125 mg 9-16 capsule by ity of 00:00: mouth [place] 00 after Medical meals and Branch at bedtime as needed for Gas (Per bowel prep). Simethicone 2021- No [id number] 125mg Take 1 [facility] 125 mg 9-16 11-01 capsule by ity of 00:00: 00:00 mouth [place] 00 :00 after Medical meals and Branch at bedtime as needed for Gas (Per bowel prep). Simethicone 2021- No [id number] 125mg Take 1 [facility] 125 mg 9-16 11-01 capsule by ity of 00:00: 00:00 mouth [place] 00 :00 after Medical meals and Branch at bedtime as needed for Gas (Per bowel prep). pantoprazol 2021- No [id number] 40mg Take 1 [facility] e 40 mg EC 9-16 10-13 tablet by ity of tablet 00:00: 00:00 mouth in [place] 00 :00 the Medical morning. Branch SUMAtriptan 0 Yes [id number] TAKE 1 [facility] 50 mg 9-06 TABLET BY ity of tablet 00:00: MOUTH [place] 00 NEEDED FOR Medical MIGRAINE Branch HEADACHE ( MAY REPEAT IN 2 HOURS ) SUMAtriptan 2021-0 Yes [id number] TAKE 1 [facility] 50 mg 9-06 TABLET BY ity of tablet 00:00: MOUTH [place] 00 NEEDED FOR Medical MIGRAINE Branch HEADACHE ( MAY REPEAT IN 2 HOURS ) SUMAtriptan 2021-0 Yes [id number] TAKE 1 [facility] 50 mg 9-06 TABLET BY ity of tablet 00:00: MOUTH [place] 00 NEEDED FOR Medical MIGRAINE Branch HEADACHE ( MAY REPEAT IN 2 HOURS ) SUMAtriptan 2021-0 Yes [id number] TAKE 1 [facility] 50 mg 9-06 TABLET BY ity of tablet 00:00: MOUTH [place] 00 NEEDED FOR Medical MIGRAINE Branch HEADACHE ( MAY REPEAT IN 2 HOURS ) SUMAtriptan 2022-0 Yes [id number] TAKE 1 [facility] 50 mg 9-06 TABLET BY ity of tablet 00:00: MOUTH [place] 00 NEEDED FOR Medical MIGRAINE Branch HEADACHE ( MAY REPEAT IN 2 HOURS ) SUMAtriptan 2022-0 Yes [id number] TAKE 1 [facility] 50 mg 9-06 TABLET BY ity of tablet 00:00: MOUTH [place] 00 NEEDED FOR Medical MIGRAINE Branch HEADACHE ( MAY REPEAT IN 2 HOURS ) SUMAtriptan 2022-0 Yes [id number] TAKE 1 [facility] 50 mg 9-06 TABLET BY ity of tablet 00:00: MOUTH [place] 00 NEEDED FOR Medical MIGRAINE Branch HEADACHE ( MAY REPEAT IN 2 HOURS ) SUMAtriptan 2022-0 Yes [id number] TAKE 1 [facility] 50 mg 9-06 TABLET BY ity of tablet 00:00: MOUTH [place] 00 NEEDED FOR Medical MIGRAINE Branch HEADACHE ( MAY REPEAT IN 2 HOURS ) SUMAtriptan 2022-0 Yes [id number] TAKE 1 [facility] 50 mg 9-06 TABLET BY ity of tablet 00:00: MOUTH [place] 00 NEEDED FOR Medical MIGRAINE Branch HEADACHE ( MAY REPEAT IN 2 HOURS ) SUMAtriptan 2022-0 Yes [id number] TAKE 1 [facility] 50 mg 9-06 TABLET BY ity of tablet 00:00: MOUTH [place] 00 NEEDED FOR Medical MIGRAINE Branch HEADACHE ( MAY REPEAT IN 2 HOURS ) SUMAtriptan 2022-0 Yes [id number] TAKE 1 [facility] 50 mg 9-06 TABLET BY ity of tablet 00:00: MOUTH [place] 00 NEEDED FOR Medical MIGRAINE Branch HEADACHE ( MAY REPEAT IN 2 HOURS ) SUMAtriptan 2022-0 Yes [id number] TAKE 1 [facility] 50 mg 9-06 TABLET BY ity of tablet 00:00: MOUTH [place] 00 NEEDED FOR Medical MIGRAINE Branch HEADACHE ( MAY REPEAT IN 2 HOURS ) SUMAtriptan 2022-0 2022- No [id number] TAKE 1 [facility] 50 mg 9-06 09-22 TABLET BY ity of tablet 00:00: 00:00 MOUTH [place] 00 :00 NEEDED FOR Medical MIGRAINE Branch HEADACHE ( MAY REPEAT IN 2 HOURS ) SUMAtriptan 2022-0 2022- No [id number] TAKE 1 [facility] 50 mg 9-06 09-22 TABLET BY ity of tablet 00:00: 00:00 MOUTH [place] 00 :00 NEEDED FOR Medical MIGRAINE Branch HEADACHE ( MAY REPEAT IN 2 HOURS ) SUMAtriptan 2-0 2- No [id number] TAKE 1 [facility] 50 mg 9-06-17 TABLET BY ity of tablet 00:00: 00:00 MOUTH [place] 00 :00 NEEDED FOR Medical MIGRAINE Branch HEADACHE ( MAY REPEAT IN 2 HOURS ) topiramate 2022-0 Yes [id number] Take 2 [facility] 25 mg 9-01 tablets by ity of tablet 00:00: mouth [place] 00 twice Medical daily Branch topiramate 2022-0 Yes [id number] Take 2 [facility] 25 mg 9-01 tablets by ity of tablet 00:00: mouth [place] 00 twice Medical daily Branch topiramate 2-0 Yes [id number] Take 2 [facility] 25 mg 9-01 tablets by ity of tablet 00:00: mouth 00 twice Medical daily Branch topiramate 2-0 Yes [id number] Take 2 [facility] 25 mg 9-01 tablets by ity of tablet 00:00: mouth 00 twice Medical daily Branch topiramate 2022-0 Yes [id number] Take 2 [facility] 25 mg 9-01 tablets by ity of tablet 00:00: mouth [place] 00 twice Medical daily Branch topiramate 2022-0 Yes [id number] Take 2 [facility] 25 mg 9-01 tablets by ity of tablet 00:00: mouth 00 twice Medical daily Branch topiramate 2022-0 Yes [id number] Take 2 [facility] 25 mg 9-01 tablets by ity of tablet 00:00: mouth 00 twice Medical daily Branch topiramate 2022-0 Yes [id number] Take 2 [facility] 25 mg 9-01 tablets by ity of tablet 00:00: mouth [place] 00 twice Medical daily Branch topiramate 2022-0 Yes [id number] Take 2 [facility] 25 mg 9-01 tablets by ity of tablet 00:00: mouth [place] 00 twice Medical daily Branch topiramate 2022-0 Yes [id number] Take 2 [facility] 25 mg 9-01 tablets by ity of tablet 00:00: mouth [place] 00 twice Medical daily Branch topiramate 2022-0 Yes [id number] Take 2 [facility] 25 mg 9-01 tablets by ity of tablet 00:00: mouth [place] 00 twice Medical daily Branch topiramate 2022-0 Yes [id number] Take 2 [facility] 25 mg 9-01 tablets by ity of tablet 00:00: mouth 00 twice Medical daily Branch topiramate 2021-0 Yes [id number] Take 2 [facility] 25 mg 9-01 tablets by ity of tablet 00:00: mouth 00 twice Medical daily Branch topiramate 2021-0 Yes [id number] Take 2 [facility] 25 mg 9-01 tablets by ity of tablet 00:00: mouth 00 twice Medical daily Branch topiramate 2021-0 Yes [id number] Take 2 [facility] 25 mg 9-01 tablets by ity of tablet 00:00: mouth 00 twice Medical daily Branch topiramate 2021-0 2022- No [id number] Take 2 [facility] 25 mg 9-01 09-22 tablets by ity of tablet 00:00: 00:00 mouth [place] 00 :00 twice Medical daily Branch topiramate 2021-0 2022- No [id number] Take 2 [facility] 25 mg 9-01 -22 tablets by ity of tablet 00:00: 00:00 mouth [place] 00 :00 twice Medical daily Branch topiramate 2021-0 2- No [id number] Take 2 [facility] 25 mg 9-01 -22 tablets by ity of tablet 00:00: 00:00 mouth [place] 00 :00 twice Medical daily Branch methocarbam 2021-0 Yes [id number] 500mg Take 1 [facility] oL 500 mg 8-11 tablet by ity o f tablet 00:00: mouth (four) Medical times Branch daily as needed for Pain (scale 7-10). methocarbam 2021-0 Yes [id number] 500mg Take 1 [facility] oL 500 mg 8-11 tablet by ity o f tablet 00:00: mouth (four) Medical times Branch daily as needed for Pain (scale 7-10). methocarbam 2021-0 Yes [id number] 500mg Take 1 [facility] oL 500 mg 8-11 tablet by ity o f tablet 00:00: mouth (four) Medical times Branch daily as needed for Pain (scale 7-10). methocarbam 2021-0 Yes [id number] 500mg Take 1 [facility] oL 500 mg 8-11 tablet by ity o f tablet 00:00: mouth (four) Medical times Branch daily as needed for Pain (scale 7-10). methocarbam 2022-0 Yes [id number] 500mg Take 1 [facility] oL 500 mg 8-11 tablet by ity o f tablet 00:00: mouth (four) Medical times Branch daily as needed for Pain (scale 7-10). methocarbam 2-0 Yes [id number] 500mg Take 1 [facility] oL 500 mg 8-11 tablet by ity o f tablet 00:00: mouth (four) Medical times Branch daily as needed for Pain (scale 7-10). methocarbam 2-0 Yes [id number] 500mg Take 1 [facility] oL 500 mg 8-11 tablet by ity o f tablet 00:00: mouth (four) Medical times Branch daily as needed for Pain (scale 7-10). methocarbam 2-0 Yes [id number] 500mg Take 1 [facility] oL 500 mg 8-11 tablet by ity o f tablet 00:00: mouth (four) Medical times Branch daily as needed for Pain (scale 7-10). methocarbam 2021-0 Yes [id number] 500mg Take 1 [facility] oL 500 mg 8-11 tablet by ity o f tablet 00:00: mouth (four) Medical times Branch daily as needed for Pain (scale 7-10). methocarbam 2-0 Yes [id number] 500mg Take 1 [facility] oL 500 mg 8-11 tablet by ity o f tablet 00:00: mouth (four) Medical times Branch daily as needed for Pain (scale 7-10). methocarbam 2-0 Yes [id number] 500mg Take 1 [facility] oL 500 mg 8-11 tablet by ity o f tablet 00:00: mouth (four) Medical times Branch daily as needed for Pain (scale 7-10). methocarbam 2-0 Yes [id number] 500mg Take 1 [facility] oL 500 mg 8-11 tablet by ity o f tablet 00:00: mouth (four) Medical times Branch daily as needed for Pain (scale 7-10). methocarbam 2-0 Yes [id number] 500mg Take 1 [facility] oL 500 mg 8-11 tablet by ity o f tablet 00:00: mouth (four) Medical times Branch daily as needed for Pain (scale 7-10). methocarbam 2-0 Yes [id number] 500mg Take 1 [facility] oL 500 mg 8-11 tablet by [facility] tablet 00:00: mouth (four) Medical times Branch daily as needed for Pain (scale 7-10). methocarbam 2-0 Yes [id number] 500mg Take 1 [facility] o[facility] 500 mg 8-11 tablet by [facility] tablet 00:00: mouth (four) Medical times Branch daily as needed for Pain (scale 7-10). methocarbam 2-0 Yes [id number] 500mg Take 1 [facility] oL 500 mg 8-11 tablet by [facility] tablet 00:00: mouth (four) Medical times Branch daily as needed for Pain (scale 7-10). methocarbam 2-0 Yes [id number] 500mg Take 1 [facility] oL 500 mg 8-11 tablet by [facility] tablet 00:00: mouth (four) Medical times Branch daily as needed for Pain (scale 7-10). methocarbam 2021-0 Yes [id number] 500mg Take 1 [facility] oL 500 mg 8-11 tablet by [facility] tablet 00:00: mouth (four) Medical times Branch daily as needed for Pain (scale 7-10). methocarbam 2-0 Yes [id number] 500mg Take 1 [facility] oL 500 mg 8-11 tablet by [facility] tablet 00:00: mouth (four) Medical times Branch daily as needed for Pain (scale 7-10). methocarbam 2-0 Yes [id number] 500mg Take 1 [facility] oL 500 mg 8-11 tablet by [facility] tablet 00:00: mouth (four) Medical times Branch daily as needed for Pain (scale 7-10). methocarbam 2-0 Yes [id number] 500mg Take 1 [facility] oL 500 mg 8-11 tablet by [facility] tablet 00:00: mouth (four) Medical times Branch daily as needed for Pain (scale 7-10). methocarbam 2-0 Yes [id number] 500mg Take 1 [facility] oL 500 mg 8-11 tablet by [facility] tablet 00:00: mouth (four) Medical times Branch daily as needed for Pain (scale 7-10). methocarbam 2-0 Yes [id number] 500mg Take 1 [facility] oL 500 mg 8-11 tablet by [facility] tablet 00:00: mouth (four) Medical times Branch daily as needed for Pain (scale 7-10). methocarbam 2-0 Yes [id number] 500mg Take 1 [facility] oL 500 mg 8-11 tablet by [facility] tablet 00:00: mouth (four) Medical times Branch daily as needed for Pain (scale 7-10). methocarbam 2-0 Yes [id number] 500mg Take 1 [facility] oL 500 mg 8-11 tablet by [facility] tablet 00:00: mouth (four) Medical times Branch daily as needed for Pain (scale 7-10). methocarbam 2-0 Yes [id number] 500mg Take 1 [facility] oL 500 mg 8-11 tablet by [facility] tablet 00:00: mouth (four) Medical times Branch daily as needed for Pain (scale 7-10). methocarbam 2-0 Yes [id number] 500mg Take 1 [facility] oL 500 mg 8-11 tablet by [facility] tablet 00:00: mouth (four) Medical times Branch daily as needed for Pain (scale 7-10). methocarbam 2-0 Yes [id number] 500mg Take 1 [facility] oL 500 mg 8-11 tablet by [facility] tablet 00:00: mouth (four) Medical times Branch daily as needed for Pain (scale 7-10). methocarbam 2-0 Yes [id number] 500mg Take 1 [facility] oL 500 mg 8-11 tablet by [facility] tablet 00:00: mouth (four) Medical times Branch daily as needed for Pain (scale 7-10). methocarbam 2-0 Yes [id number] 500mg Take 1 [facility] oL 500 mg 8-11 tablet by [facility] tablet 00:00: mouth (four) Medical times Branch daily as needed for Pain (scale 7-10). methocarbam 2022-0 Yes [id number] 500mg Take 1 [facility] oL 500 mg 8-11 tablet by [facility] tablet 00:00: mouth (four) Medical times Branch daily as needed for Pain (scale 7-10). methocarbam 2022-0 Yes [id number] 500mg Take 1 [facility] oL 500 mg 8-11 tablet by [facility] tablet 00:00: mouth (four) Medical times Branch daily as needed for Pain (scale 7-10). methocarbam 2-0 Yes [id number] 500mg Take 1 [facility] oL 500 mg 8-11 tablet by [facility] tablet 00:00: mouth (four) Medical times Branch daily as needed for Pain (scale 7-10). methocarbam 2-0 Yes [id number] 500mg Take 1 [facility] oL 500 mg 8-11 tablet by [facility] tablet 00:00: mouth (four) Medical times Branch daily as needed for Pain (scale 7-10). methocarbam 2-0 Yes [id number] 500mg Take 1 [facility] oL 500 mg 8-11 tablet by [facility] tablet 00:00: mouth (four) Medical times Branch daily as needed for Pain (scale 7-10). methocarbam 2-0 Yes [id number] 500mg Take 1 [facility] oL 500 mg 8-11 tablet by [facility] tablet 00:00: mouth (four) Medical times Branch daily as needed for Pain (scale 7-10). methocarbam 2-0 Yes [id number] 500mg Take 1 [facility] o[facility] 500 mg 8-11 tablet by [facility] tablet 00:00: mouth (four) Medical times Branch daily as needed for Pain (scale 7-10). methocarbam 2-0 Yes [id number] 500mg Take 1 [facility] oL 500 mg 8-11 tablet by [facility] tablet 00:00: mouth (four) Medical times Branch daily as needed for Pain (scale 7-10). methocarbam 2-0 Yes [id number] 500mg Take 1 [facility] oL 500 mg 8-11 tablet by [facility] tablet 00:00: mouth (four) Medical times Branch daily as needed for Pain (scale 7-10). methocarbam 2022-0 Yes [id number] 500mg Take 1 [facility] oL 500 mg 8-11 tablet by [facility] tablet 00:00: mouth (four) Medical times Branch daily as needed for Pain (scale 7-10). methocarbam 2022-0 Yes [id number] 500mg Take 1 [facility] oL 500 mg 8-11 tablet by [facility] tablet 00:00: mouth (four) Medical times Branch daily as needed for Pain (scale 7-10). methocarbam 2022-0 Yes [id number] 500mg Take 1 [facility] o[facility] 500 mg 8-11 tablet by [facility] tablet 00:00: mouth (four) Medical times Branch daily as needed for Pain (scale 7-10). methocarbam 2022-0 Yes [id number] 500mg Take 1 [facility] oL 500 mg 8-11 tablet by [facility] tablet 00:00: mouth (four) Medical times Branch daily as needed for Pain (scale 7-10). methocarbam 2022-0 Yes [id number] 500mg Take 1 [facility] o[facility] 500 mg 8-11 tablet by [facility] tablet 00:00: mouth (four) Medical times Branch daily as needed for Pain (scale 7-10). methocarbam 2-0 Yes [id number] 500mg Take 1 [facility] o[facility] 500 mg 8-11 tablet by [facility] tablet 00:00: mouth (four) Medical times Branch daily as needed for Pain (scale 7-10). methocarbam 2-0 Yes [id number] 500mg Take 1 [facility] o[facility] 500 mg 8-11 tablet by [facility] tablet 00:00: mouth (four) Medical times Branch daily as needed for Pain (scale 7-10). methocarbam 2-0 Yes [id number] 500mg Take 1 [facility] o[facility] 500 mg 8-11 tablet by [facility] tablet 00:00: mouth (four) Medical times Branch daily as needed for Pain (scale 7-10). methocarbam 2-0 Yes [id number] 500mg Take 1 [facility] oL 500 mg 8-11 tablet by [facility] tablet 00:00: mouth (four) Medical times Branch daily as needed for Pain (scale 7-10). methocarbam 2022-0 Yes [id number] 500mg Take 1 [facility] oL 500 mg 8-11 tablet by [facility] tablet 00:00: mouth (four) Medical times Branch daily as needed for Pain (scale 7-10). methocarbam 2022-0 Yes [id number] 500mg Take 1 [facility] oL 500 mg 8-11 tablet by [facility] tablet 00:00: mouth (four) Medical times Branch daily as needed for Pain (scale 7-10). methocarbam 2022-0 Yes [id number] 500mg Take 1 [facility] o[facility] 500 mg 8-11 tablet by [facility] tablet 00:00: mouth (four) Medical times Branch daily as needed for Pain (scale 7-10). methocarbam 2022-0 Yes [id number] 500mg Take 1 [facility] o[facility] 500 mg 8-11 tablet by [facility] tablet 00:00: mouth (four) Medical times Branch daily as needed for Pain (scale 7-10). methocarbam 2022-0 Yes [id number] 500mg Take 1 [facility] o[facility] 500 mg 8-11 tablet by [facility] tablet 00:00: mouth (four) Medical times Branch daily as needed for Pain (scale 7-10). methocarbam 2022-0 Yes [id number] 500mg Take 1 [facility] o[facility] 500 mg 8-11 tablet by [facility] tablet 00:00: mouth (four) Medical times Branch daily as needed for Pain (scale 7-10). methocarbam 2022-0 Yes [id number] 500mg Take 1 [facility] o[facility] 500 mg 8-11 tablet by [facility] tablet 00:00: mouth (four) Medical times Branch daily as needed for Pain (scale 7-10). methocarbam 2022-0 Yes [id number] 500mg Take 1 [facility] o[facility] 500 mg 8-11 tablet by [facility] tablet 00:00: mouth (four) Medical times Branch daily as needed for Pain (scale 7-10). methocarbam 2022-0 Yes [id number] 500mg Take 1 [facility] o[facility] 500 mg 8-11 tablet by [facility] tablet 00:00: mouth (four) Medical times Branch daily as needed for Pain (scale 7-10). methocarbam 2022-0 Yes [id number] 500mg Take 1 [facility] o[facility] 500 mg 8-11 tablet by [facility] tablet 00:00: mouth (four) Medical times Branch daily as needed for Pain (scale 7-10). methocarbam 2022-0 Yes [id number] 500mg Take 1 [facility] o[facility] 500 mg 8-11 tablet by [facility] tablet 00:00: mouth 4 [place] 00 (four) Medical times Branch daily as needed for Pain (scale 7-10). methocarbam 2021-0 Yes [id number] 500mg Take 1 [facility] oL 500 mg 8-11 tablet by [facility] tablet 00:00: mouth 4 00 (four) Medical times Branch daily as needed for Pain (scale 7-10). methocarbam 2021-0 3- No [id number] 500mg Take 1 [facility] oL 500 mg 8-07 27-24 tablet by [facility] tablet 00:00: 00:00 mouth 4 [place] 00 :00 (four) Medical times Branch daily as needed for Pain (scale 7-10). methocarbam 2021-3- No [id number] 500mg Take 1 [facility] oL 500 mg 8-07 27-24 tablet by [facility] tablet 00:00: 00:00 mouth 4 [place] 00 :00 (four) Medical times Branch daily as needed for Pain (scale 7-10). methocarbam 2022- No [id number] 500mg Take 1 [facility] oL 500 mg 8-24 tablet by [facility] tablet 00:00: 00:00 mouth 4 00 :00 (four) Medical times Branch daily as needed for Pain (scale 7-10). LOSARTAN 50 2021-0 Yes [id number] Take 1 [facility] mg tablet 7-20 tablet by [facility] f 00:00: mouth twice Medical daily Branch DILTIAZEM 2021-0 Yes [id number] Take 1 [facility] 120 mg 24 7-20 capsule by [facility] capsule 00:00: mouth twice Medical daily Branch LOSARTAN 50 2021-0 Yes [id number] Take 1 [facility] mg tablet 7-20 tablet by [facility] f 00:00: mouth twice Medical daily Branch DILTIAZEM 2021-0 Yes [id number] Take 1 [facility] 120 mg 24 7-20 capsule by [facility] capsule 00:00: mouth twice Medical daily Branch LOSARTAN 50 2021-0 Yes [id number] Take 1 [facility] mg tablet 7-20 tablet by [facility] f 00:00: mouth twice Medical daily Branch DILTIAZEM 2021-0 Yes [id number] Take 1 [facility] 120 mg 24 7-20 capsule by [facility] capsule 00:00: mouth twice Medical daily Branch LOSARTAN 50 2021-0 Yes [id number] Take 1 [facility] mg tablet 7-20 tablet by [facility] f 00:00: mouth twice Medical daily Branch DILTIAZEM 2021-0 Yes [id number] Take 1 [facility] [place] 120 mg 24 7-20 capsule by [facility] capsule 00:00: mouth twice Medical daily Branch LOSARTAN 50 2021-0 Yes [id number] Take 1 [facility] mg tablet 7-20 tablet by [facility] f 00:00: mouth twice Medical daily Branch DILTIAZEM 2021-0 Yes [id number] Take 1 [facility] [place] 120 mg 24 7-20 capsule by [facility] capsule 00:00: mouth twice Medical daily Branch LOSARTAN 50 2021-0 Yes [id number] Take 1 [facility] mg tablet 7-20 tablet by [facility] f 00:00: mouth twice Medical daily Branch DILTIAZEM 2021-0 Yes [id number] Take 1 [facility] [place] 120 mg 24 7-20 capsule by [facility] capsule 00:00: mouth twice Medical daily Branch LOSARTAN 50 2021-0 Yes [id number] Take 1 [facility] mg tablet 7-20 tablet by [facility] f 00:00: mouth twice Medical daily Branch DILTIAZEM 2021-0 Yes [id number] Take 1 [facility] [place] 120 mg 24 7-20 capsule by [facility] capsule 00:00: mouth twice Medical daily Branch LOSARTAN 50 2021-0 Yes [id number] Take 1 [facility] mg tablet 7-20 tablet by [facility] f 00:00: mouth twice Medical daily Branch DILTIAZEM 2021-0 Yes [id number] Take 1 [facility] [place] 120 mg 24 7-20 capsule by [facility] capsule 00:00: mouth twice Medical daily Branch LOSARTAN 50 2021-0 Yes [id number] Take 1 [facility] mg tablet 7-20 tablet by [facility] f 00:00: mouth twice Medical daily Branch DILTIAZEM 2021-0 Yes [id number] Take 1 [facility] [place] 120 mg 24 7-20 capsule by [facility] capsule 00:00: mouth twice Medical daily Branch LOSARTAN 50 2021-0 Yes [id number] Take 1 [facility] mg tablet 7-20 tablet by [facility] o f 00:00: mouth twice Medical daily Branch DILTIAZEM 2022-0 Yes [id number] Take 1 [facility] [place] 120 mg 24 7-20 capsule by [facility] capsule 00:00: mouth twice Medical daily Branch LOSARTAN 50 2021-0 Yes [id number] Take 1 [facility] mg tablet 7-20 tablet by [facility] f 00:00: mouth twice Medical daily Branch DILTIAZEM 2021-0 Yes [id number] Take 1 [facility] 120 mg 24 7-20 capsule by [facility] capsule 00:00: mouth twice Medical daily Branch LOSARTAN 50 2021-0 Yes [id number] Take 1 [facility] mg tablet 7-20 tablet by [facility] f 00:00: mouth twice Medical daily Branch DILTIAZEM 2021-0 Yes [id number] Take 1 [facility] [place] 120 mg 24 7-20 capsule by [facility] capsule 00:00: mouth twice Medical daily Branch LOSARTAN 50 2021-0 Yes [id number] Take 1 [facility] mg tablet 7-20 tablet by [facility] f 00:00: mouth twice Medical daily Branch DILTIAZEM 2021-0 Yes [id number] Take 1 [facility] [place] 120 mg 24 7-20 capsule by [facility] capsule 00:00: mouth twice Medical daily Branch LOSARTAN 50 2021-0 Yes [id number] Take 1 [facility] mg tablet 7-20 tablet by [facility] f 00:00: mouth twice Medical daily Branch DILTIAZEM 2021-0 Yes [id number] Take 1 [facility] [place] 120 mg 24 7-20 capsule by [facility] capsule 00:00: mouth twice Medical daily Branch LOSARTAN 50 2021-0 Yes [id number] Take 1 [facility] mg tablet 7-20 tablet by [facility] f 00:00: mouth twice Medical daily Branch DILTIAZEM 2021-0 Yes [id number] Take 1 [facility] [place] 120 mg 24 7-20 capsule by [facility] capsule 00:00: mouth twice Medical daily Branch LOSARTAN 50 2021-0 Yes [id number] Take 1 [facility] mg tablet 7-20 tablet by [facility] f 00:00: mouth twice Medical daily Branch DILTIAZEM 2021-0 Yes [id number] Take 1 [facility] [place] 120 mg 24 7-20 capsule by [facility] capsule 00:00: mouth twice Medical daily Branch LOSARTAN 50 2021-0 Yes [id number] Take 1 [facility] mg tablet 7-20 tablet by [facility] f 00:00: mouth twice Medical daily Branch DILTIAZEM 2-0 Yes [id number] Take 1 [facility] [place] 120 mg 24 7-20 capsule by [facility] capsule 00:00: mouth twice Medical daily Branch LOSARTAN 50 2021-0 Yes [id number] Take 1 [facility] mg tablet 7-20 tablet by [facility] f 00:00: mouth twice Medical daily Branch DILTIAZEM 2021-0 Yes [id number] Take 1 [facility] [place] 120 mg 24 7-20 capsule by [facility] capsule 00:00: mouth twice Medical daily Branch LOSARTAN 50 2021-0 Yes [id number] Take 1 [facility] mg tablet 7-20 tablet by [facility] f 00:00: mouth twice Medical daily Branch DILTIAZEM 2021-0 Yes [id number] Take 1 [facility] 120 mg 24 7-20 capsule by [facility] capsule 00:00: mouth twice Medical daily Branch LOSARTAN 50 2021-0 Yes [id number] Take 1 [facility] mg tablet 7-20 tablet by [facility] f 00:00: mouth twice Medical daily Branch DILTIAZEM 2021-0 Yes [id number] Take 1 [facility] [place] 120 mg 24 7-20 capsule by [facility] capsule 00:00: mouth twice Medical daily Branch LOSARTAN 50 2021-0 Yes [id number] Take 1 [facility] mg tablet 7-20 tablet by [facility] f 00:00: mouth twice Medical daily Branch DILTIAZEM 2021-0 Yes [id number] Take 1 [facility] [place] 120 mg 24 7-20 capsule by [facility] capsule 00:00: mouth twice Medical daily Branch LOSARTAN 50 2-0 Yes [id number] Take 1 [facility] mg tablet 7-20 tablet by [facility] f 00:00: mouth twice Medical daily Branch DILTIAZEM 2-0 Yes [id number] Take 1 [facility] 120 mg 24 7-20 capsule by [facility] capsule 00:00: mouth twice Medical daily Branch LOSARTAN 50 2021-0 Yes [id number] Take 1 [facility] mg tablet 7-20 tablet by [facility] f 00:00: mouth twice Medical daily Branch DILTIAZEM 2021-0 Yes [id number] Take 1 [facility] [place] 120 mg 24 7-20 capsule by [facility] capsule 00:00: mouth twice Medical daily Branch LOSARTAN 50 2021-0 Yes [id number] Take 1 [facility] mg tablet 7-20 tablet by [facility] f 00:00: mouth twice Medical daily Branch DILTIAZEM 2021-0 Yes [id number] Take 1 [facility] 120 mg 24 7-20 capsule by [facility] capsule 00:00: mouth twice Medical daily Branch LOSARTAN 50 2021-0 Yes [id number] Take 1 [facility] mg tablet 7-20 tablet by [facility] o f 00:00: mouth twice Medical daily Branch DILTIAZEM 2021-0 Yes [id number] Take 1 [facility] [place] 120 mg 24 7-20 capsule by [facility] capsule 00:00: mouth twice Medical daily Branch LOSARTAN 50 2021-0 Yes [id number] Take 1 [facility] mg tablet 7-20 tablet by [facility] o f 00:00: mouth twice Medical daily Branch DILTIAZEM 2021-0 Yes [id number] Take 1 [facility] 120 mg 24 7-20 capsule by [facility] capsule 00:00: mouth twice Medical daily Branch LOSARTAN 50 2021-0 Yes [id number] Take 1 [facility] mg tablet 7-20 tablet by [facility] f 00:00: mouth twice Medical daily Branch DILTIAZEM 2021-0 Yes [id number] Take 1 [facility] [place] 120 mg 24 7-20 capsule by [facility] hr capsule 00:00: mouth twice Medical daily Branch LOSARTAN 50 2021-0 Yes [id number] Take 1 [facility] mg tablet 7-20 tablet by [facility] f 00:00: mouth twice Medical daily Branch DILTIAZEM 2021-0 Yes [id number] Take 1 [facility] [place] 120 mg 24 7-20 capsule by [facility] capsule 00:00: mouth twice Medical daily Branch LOSARTAN 50 2021-0 Yes [id number] Take 1 [facility] mg tablet 7-20 tablet by [facility] o f 00:00: mouth twice Medical daily Branch DILTIAZEM 2021-0 Yes [id number] Take 1 [facility] [place] 120 mg 24 7-20 capsule by [facility] capsule 00:00: twice Medical daily Branch LOSARTAN 50 2021-0 Yes [id number] Take 1 [facility] mg tablet 7-20 tablet by [facility] o f 00:00: mouth 00 twice Medical daily Branch DILTIAZEM 2021-0 Yes [id number] Take 1 [facility] 120 mg 24 7-20 capsule by [facility] hr capsule 00:00: mouth 00 twice Medical daily Branch LOSARTAN 50 2021-0 Yes [id number] Take 1 [facility] mg tablet 7-20 tablet by [facility] o f 00:00: mouth 00 twice Medical daily Branch DILTIAZEM 2021-0 Yes [id number] Take 1 [facility] 120 mg 24 7-20 capsule by [facility] hr capsule 00:00: mouth 00 twice Medical daily Branch LOSARTAN 50 2021-0 Yes [id number] Take 1 [facility] mg tablet 7-20 tablet by [facility] o f 00:00: mouth twice Medical daily Branch DILTIAZEM 2021-0 Yes [id number] Take 1 [facility] 120 mg 24 7-20 capsule by [facility] hr capsule 00:00: mouth twice Medical daily Branch LOSARTAN 50 2021-0 2021- No [id number] Take 1 [facility] mg tablet 7-20 10-13 tablet by [facility] of 00:00: 00:00 mouth [place] 00 :00 twice Medical daily Branch DILTIAZEM 2021-0 2021- No [id number] Take 1 [facility] 120 mg 24 7-20 10-13 capsule by [facility] hr capsule 00:00: 00:00 mouth [place] 00 :00 twice Medical daily Branch methocarbam 2021-0 Yes [id number] 500mg Take 1 [facility] oL 500 mg 7-02 tablet by [facility] tablet 00:00: mouth (four) Medical times Branch daily. methocarbam 2021-0 Yes [id number] 500mg Take 1 [facility] oL 500 mg 7-02 tablet by [facility] tablet 00:00: mouth (four) Medical times Branch daily. methocarbam 2021-0 Yes [id number] 500mg Take 1 [facility] oL 500 mg 7-02 tablet by [facility] tablet 00:00: mouth (four) Medical times Branch daily. methocarbam 2021-0 Yes [id number] 500mg Take 1 [facility] oL 500 mg 7-02 tablet by [facility] tablet 00:00: mouth (four) Medical times Branch daily. methocarbam 2021-0 Yes [id number] 500mg Take 1 [facility] oL 500 mg 7-02 tablet by [facility] tablet 00:00: mouth 4 [place] 00 (four) Medical times Branch daily. methocarbam 2021-2021- No [id number] 500mg Take 1 [facility] oL 500 mg 7-11 03- tablet by [facility] tablet 00:00: 00:00 mouth 4 [place] 00 :00 (four) Medical times Branch daily. SUMATRIPTAN 2021-0 Yes [id number] TAKE 1 [facility] 50 mg 6-17 TABLET BY [facility] tablet 00:00: MOUTH [place] 00 NEEDED FOR Medical MIGRAINE Branch HEADACHE (MAY REPEAT IN TWO HOURS) SUMATRIPTAN 2021-0 Yes [id number] TAKE 1 [facility] 50 mg 6-17 TABLET BY [facility] tablet 00:00: MOUTH [place] 00 NEEDED FOR Medical MIGRAINE Branch HEADACHE (MAY REPEAT IN TWO HOURS) SUMATRIPTAN 2021-0 Yes [id number] TAKE 1 [facility] 50 mg 6-17 TABLET BY [facility] tablet 00:00: MOUTH [place] 00 NEEDED FOR Medical MIGRAINE Branch HEADACHE (MAY REPEAT IN TWO HOURS) SUMATRIPTAN 2021-0 Yes [id number] TAKE 1 [facility] 50 mg 6-17 TABLET BY [facility] tablet 00:00: MOUTH [place] 00 NEEDED FOR Medical MIGRAINE Branch HEADACHE (MAY REPEAT IN TWO HOURS) SUMATRIPTAN 2021-0 Yes [id number] TAKE 1 [facility] 50 mg 6-17 TABLET BY [facility] tablet 00:00: MOUTH [place] 00 NEEDED FOR Medical MIGRAINE Branch HEADACHE (MAY REPEAT IN TWO HOURS) SUMATRIPTAN 2021-0 Yes [id number] TAKE 1 [facility] 50 mg 6-17 TABLET BY [facility] tablet 00:00: MOUTH [place] 00 NEEDED FOR Medical MIGRAINE Branch HEADACHE (MAY REPEAT IN TWO HOURS) SUMATRIPTAN 2021-0 Yes [id number] TAKE 1 [facility] 50 mg 6-17 TABLET BY [facility] tablet 00:00: MOUTH [place] 00 NEEDED FOR Medical MIGRAINE Branch HEADACHE (MAY REPEAT IN TWO HOURS) SUMATRIPTAN 2-0 Yes [id number] TAKE 1 [facility] 50 mg 6-17 TABLET BY [facility] tablet 00:00: MOUTH [place] 00 NEEDED FOR Medical MIGRAINE Branch HEADACHE (MAY REPEAT IN TWO HOURS) SUMATRIPTAN 2021-0 Yes [id number] TAKE 1 [facility] 50 mg 6-17 TABLET BY [facility] tablet 00:00: MOUTH [place] 00 NEEDED FOR Medical MIGRAINE Branch HEADACHE (MAY REPEAT IN TWO HOURS) SUMATRIPTAN 2022-0 Yes [id number] TAKE 1 [facility] 50 mg 6-17 TABLET BY [facility] tablet 00:00: MOUTH [place] 00 NEEDED FOR Medical MIGRAINE Branch HEADACHE (MAY REPEAT IN TWO HOURS) SUMATRIPTAN 2022-0 Yes [id number] TAKE 1 [facility] 50 mg 6-17 TABLET BY [facility] tablet 00:00: MOUTH [place] 00 NEEDED FOR Medical MIGRAINE Branch HEADACHE (MAY REPEAT IN TWO HOURS) SUMATRIPTAN 2022-0 Yes [id number] TAKE 1 [facility] 50 mg 6-17 TABLET BY [facility] tablet 00:00: MOUTH [place] 00 NEEDED FOR Medical MIGRAINE Branch HEADACHE (MAY REPEAT IN TWO HOURS) SUMATRIPTAN 2022-0 Yes [id number] TAKE 1 [facility] 50 mg 6-17 TABLET BY [facility] tablet 00:00: MOUTH [place] 00 NEEDED FOR Medical MIGRAINE Branch HEADACHE (MAY REPEAT IN TWO HOURS) SUMATRIPTAN 2022-0 Yes [id number] TAKE 1 [facility] 50 mg 6-17 TABLET BY [facility] tablet 00:00: MOUTH [place] 00 NEEDED FOR Medical MIGRAINE Branch HEADACHE (MAY REPEAT IN TWO HOURS) SUMATRIPTAN 2-0 Yes [id number] TAKE 1 [facility] 50 mg 6-17 TABLET BY [facility] tablet 00:00: MOUTH [place] 00 NEEDED FOR Medical MIGRAINE Branch HEADACHE (MAY REPEAT IN TWO HOURS) SUMATRIPTAN 2-0 Yes [id number] TAKE 1 [facility] 50 mg 6-17 TABLET BY [facility] tablet 00:00: MOUTH [place] 00 NEEDED FOR Medical MIGRAINE Branch HEADACHE (MAY REPEAT IN TWO HOURS) SUMATRIPTAN 2022-0 Yes [id number] TAKE 1 [facility] 50 mg 6-17 TABLET BY [facility] tablet 00:00: MOUTH [place] 00 NEEDED FOR Medical MIGRAINE Branch HEADACHE (MAY REPEAT IN TWO HOURS) SUMATRIPTAN 2022-0 2022- No [id number] TAKE 1 [facility] 50 mg 6-17 09-06 TABLET BY [facility] tablet 00:00: 00:00 MOUTH [place] 00 :00 NEEDED FOR Medical MIGRAINE Branch HEADACHE (MAY REPEAT IN TWO HOURS) SUMATRIPTAN 2022-0 2022- No [id number] TAKE 1 [facility] 50 mg 6-17 09-06 TABLET BY [facility] tablet 00:00: 00:00 MOUTH [place] 00 :00 NEEDED FOR Medical MIGRAINE Branch HEADACHE (MAY REPEAT IN TWO HOURS) fexofenadin 0 Yes [id number] 180mg Take 1 [facility] e (LUIS 6-13 tablet by [facility] ALLERGY) 00:00: mouth [place] 180 mg 00 daily. Medical tablet Branch fexofenadin 0 Yes [id number] 180mg Take 1 [facility] e (LUIS 6-13 tablet by [facility] ALLERGY) 00:00: mouth [place] 180 mg 00 daily. Medical tablet Branch fexofenadin Yes [id number] 180mg Take 1 [facility] e (LUIS 6-13 tablet by [facility] ALLERGY) 00:00: mouth [place] 180 mg 00 daily. Medical tablet Branch fexofenadin Yes [id number] 180mg Take 1 [facility] e (LUIS 6-13 tablet by [facility] ALLERGY) 00:00: mouth [place] 180 mg 00 daily. Medical tablet Branch fexofenadin Yes [id number] 180mg Take 1 [facility] e (LUIS 6-13 tablet by [facility] of ALLERGY) 00:00: mouth [place] 180 mg 00 daily. Medical tablet Branch fexofenadin Yes [id number] 180mg Take 1 [facility] e (LUIS 6-13 tablet by [facility] of ALLERGY) 00:00: mouth [place] 180 mg 00 daily. Medical tablet Branch fexofenadin Yes [id number] 180mg Take 1 [facility] e (LUIS 6-13 tablet by [facility] of ALLERGY) 00:00: mouth [place] 180 mg 00 daily. Medical tablet Branch fexofenadin 0 Yes [id number] 180mg Take 1 [facility] e (LUIS 6-13 tablet by [facility] of ALLERGY) 00:00: mouth [place] 180 mg 00 daily. Medical tablet Branch fexofenadin 0 Yes [id number] 180mg Take 1 [facility] e (LUIS 6-13 tablet by [facility] of ALLERGY) 00:00: mouth [place] 180 mg 00 daily. Medical tablet Branch fexofenadin Yes [id number] 180mg Take 1 [facility] e (LUIS 6-13 tablet by [facility] of ALLERGY) 00:00: mouth [place] 180 mg 00 daily. Medical tablet Branch fexofenadin Yes [id number] 180mg Take 1 [facility] e (LUIS 6-13 tablet by [facility] of ALLERGY) 00:00: mouth [place] 180 mg 00 daily. Medical tablet Branch fexofenadin Yes [id number] 180mg Take 1 [facility] e (LUIS 6-13 tablet by [facility] of ALLERGY) 00:00: mouth [place] 180 mg 00 daily. Medical tablet Branch fexofenadin Yes [id number] 180mg Take 1 [facility] e (LUIS 6-13 tablet by [facility] of ALLERGY) 00:00: mouth [place] 180 mg 00 daily. Medical tablet Branch fexofenadin Yes [id number] 180mg Take 1 [facility] e (LUIS 6-13 tablet by [facility] of ALLERGY) 00:00: mouth [place] 180 mg 00 daily. Medical tablet Branch fexofenadin Yes [id number] 180mg Take 1 [facility] e (LUIS 6-13 tablet by [facility] of ALLERGY) 00:00: mouth [place] 180 mg 00 daily. Medical tablet Branch fexofenadin Yes [id number] 180mg Take 1 [facility] e (LUIS 6-13 tablet by [facility] ALLERGY) 00:00: mouth [place] 180 mg 00 daily. Medical tablet Branch fexofenadin Yes [id number] 180mg Take 1 [facility] e (LUIS 6-13 tablet by [facility] ALLERGY) 00:00: mouth [place] 180 mg 00 daily. Medical tablet Branch fexofenadin Yes [id number] 180mg Take 1 [facility] e (LUIS 6-13 tablet by [facility] of ALLERGY) 00:00: mouth [place] 180 mg 00 daily. Medical tablet Branch fexofenadin Yes [id number] 180mg Take 1 [facility] e (LUIS 6-13 tablet by [facility] ALLERGY) 00:00: mouth [place] 180 mg 00 daily. Medical tablet Branch fexofenadin Yes [id number] 180mg Take 1 [facility] e (LUIS 6-13 tablet by [facility] of ALLERGY) 00:00: mouth [place] 180 mg 00 daily. Medical tablet Branch fexofenadin Yes [id number] 180mg Take 1 [facility] e (LUIS 6-13 tablet by ity of ALLERGY) 00:00: mouth [place] 180 mg 00 daily. Medical tablet Branch fexofenadin Yes [id number] 180mg Take 1 [facility] (LUIS 6-13 tablet by ity of ALLERGY) 00:00: mouth [place] 180 mg 00 daily. Medical tablet Branch fexofenadin Yes [id number] 180mg Take 1 [facility] e (LUIS 6-13 tablet by ity of ALLERGY) 00:00: mouth [place] 180 mg 00 daily. Medical tablet Branch fexofenadin Yes [id number] 180mg Take 1 [facility] (LUIS 6-13 tablet by ity of ALLERGY) 00:00: mouth [place] 180 mg 00 daily. Medical tablet Branch fexofenadin Yes [id number] 180mg Take 1 [facility] (LUIS 6-13 tablet by ity of ALLERGY) 00:00: mouth [place] 180 mg 00 daily. Medical tablet Branch fexofenadin Yes [id number] 180mg Take 1 [facility] (LUIS 6-13 tablet by ity of ALLERGY) 00:00: mouth [place] 180 mg 00 daily. Medical tablet Branch fexofenadin Yes [id number] 180mg Take 1 [facility] (LUIS 6-13 tablet by ity of ALLERGY) 00:00: mouth [place] 180 mg 00 daily. Medical tablet Branch fexofenadin Yes [id number] 180mg Take 1 [facility] (LUIS 6-13 tablet by ity of ALLERGY) 00:00: mouth [place] 180 mg 00 daily. Medical tablet Branch fexofenadin Yes [id number] 180mg Take 1 [facility] (LUIS 6-13 tablet by ity of ALLERGY) 00:00: mouth [place] 180 mg 00 daily. Medical tablet Branch fexofenadin Yes [id number] 180mg Take 1 [facility] (LUIS 6-13 tablet by ity of ALLERGY) 00:00: mouth [place] 180 mg 00 daily. Medical tablet Branch fexofenadin Yes [id number] 180mg Take 1 [facility] (LUIS 6-13 tablet by ity of ALLERGY) 00:00: mouth [place] 180 mg 00 daily. Medical tablet Branch fexofenadin Yes [id number] 180mg Take 1 [facility] (LUIS 6-13 tablet by ity of ALLERGY) 00:00: mouth [place] 180 mg 00 daily. Medical tablet Branch fexofenadin Yes [id number] 180mg Take 1 [facility] (LUIS 6-13 tablet by ity of ALLERGY) 00:00: mouth [place] 180 mg 00 daily. Medical tablet Branch fexofenadin 0 Yes [id number] 180mg Take 1 [facility] (LUIS 6-13 tablet by ity of ALLERGY) 00:00: mouth [place] 180 mg 00 daily. Medical tablet Branch fexofenadin Yes [id number] 180mg Take 1 [facility] (LUIS 6-13 tablet by ity of ALLERGY) 00:00: mouth [place] 180 mg 00 daily. Medical tablet Branch fexofenadin Yes [id number] 180mg Take 1 [facility] (LUIS 6-13 tablet by ity of ALLERGY) 00:00: mouth [place] 180 mg 00 daily. Medical tablet Branch fexofenadin Yes [id number] 180mg Take 1 [facility] (LUIS 6-13 tablet by ity of ALLERGY) 00:00: mouth [place] 180 mg 00 daily. Medical tablet Branch fexofenadin Yes [id number] 180mg Take 1 [facility] (LUIS 6-13 tablet by ity of ALLERGY) 00:00: mouth [place] 180 mg 00 daily. Medical tablet Branch fexofenadin Yes [id number] 180mg Take 1 [facility] (LUIS 6-13 tablet by ity of ALLERGY) 00:00: mouth [place] 180 mg 00 daily. Medical tablet Branch fexofenadin Yes [id number] 180mg Take 1 [facility] (LUIS 6-13 tablet by ity of ALLERGY) 00:00: mouth [place] 180 mg 00 daily. Medical tablet Branch fexofenadin Yes [id number] 180mg Take 1 [facility] (LUIS 6-13 tablet by ity of ALLERGY) 00:00: mouth [place] 180 mg 00 daily. Medical tablet Branch fexofenadin Yes [id number] 180mg Take 1 [facility] (LUIS 6-13 tablet by ity of ALLERGY) 00:00: mouth [place] 180 mg 00 daily. Medical tablet Branch fexofenadin Yes [id number] 180mg Take 1 [facility] (LUIS 6-13 tablet by ity of ALLERGY) 00:00: mouth [place] 180 mg 00 daily. Medical tablet Branch fexofenadin 2022-0 Yes [id number] 180mg Take 1 [facility] (LUIS 6-13 tablet by ity of ALLERGY) 00:00: mouth [place] 180 mg 00 daily. Medical tablet Branch fexofenadin Yes [id number] 180mg Take 1 [facility] (LUIS 6-13 tablet by ity of ALLERGY) 00:00: mouth [place] 180 mg 00 daily. Medical tablet Branch fexofenadin Yes [id number] 180mg Take 1 [facility] (LUIS 6-13 tablet by ity of ALLERGY) 00:00: mouth [place] 180 mg 00 daily. Medical tablet Branch fexofenadin Yes [id number] 180mg Take 1 [facility] (LUIS 6-13 tablet by ity of ALLERGY) 00:00: mouth [place] 180 mg 00 daily. Medical tablet Branch fexofenadin Yes [id number] 180mg Take 1 [facility] (LUIS 6-13 tablet by ity of ALLERGY) 00:00: mouth [place] 180 mg 00 daily. Medical tablet Branch fexofenadin Yes [id number] 180mg Take 1 [facility] (LUIS 6-13 tablet by ity of ALLERGY) 00:00: mouth [place] 180 mg 00 daily. Medical tablet Branch fexofenadin Yes [id number] 180mg Take 1 [facility] (LUIS 6-13 tablet by ity of ALLERGY) 00:00: mouth [place] 180 mg 00 daily. Medical tablet Branch fexofenadin Yes [id number] 180mg Take 1 [facility] (LUIS 6-13 tablet by ity of ALLERGY) 00:00: mouth [place] 180 mg 00 daily. Medical tablet Branch fexofenadin Yes [id number] 180mg Take 1 [facility] (LUIS 6-13 tablet by ity of ALLERGY) 00:00: mouth [place] 180 mg 00 daily. Medical tablet Branch fexofenadin Yes [id number] 180mg Take 1 [facility] (LUIS 6-13 tablet by ity of ALLERGY) 00:00: mouth [place] 180 mg 00 daily. Medical tablet Branch fexofenadin Yes [id number] 180mg Take 1 [facility] (LUIS 6-13 tablet by ity of ALLERGY) 00:00: mouth [place] 180 mg 00 daily. Medical tablet Branch fexofenadin Yes [id number] 180mg Take 1 [facility] (LUIS 6-13 tablet by ity of ALLERGY) 00:00: mouth [place] 180 mg 00 daily. Medical tablet Branch fexofenadin Yes [id number] 180mg Take 1 [facility] (LUIS 6-13 tablet by ity of ALLERGY) 00:00: mouth [place] 180 mg 00 daily. Medical tablet Branch fexofenadin Yes [id number] 180mg Take 1 [facility] (LUIS 6-13 tablet by ity of ALLERGY) 00:00: mouth [place] 180 mg 00 daily. Medical tablet Branch fexofenadin Yes [id number] 180mg Take 1 [facility] (LUIS 6-13 tablet by ity of ALLERGY) 00:00: mouth [place] 180 mg 00 daily. Medical tablet Branch fexofenadin Yes [id number] 180mg Take 1 [facility] (LUIS 6-13 tablet by ity of ALLERGY) 00:00: mouth [place] 180 mg 00 daily. Medical tablet Branch fexofenadin Yes [id number] 180mg Take 1 [facility] (LUIS 6-13 tablet by ity of ALLERGY) 00:00: mouth [place] 180 mg 00 daily. Medical tablet Branch fexofenadin Yes [id number] 180mg Take 1 [facility] (LUIS 6-13 tablet by ity of ALLERGY) 00:00: mouth [place] 180 mg 00 daily. Medical tablet Branch fexofenadin Yes [id number] 180mg Take 1 [facility] (LUIS 6-13 tablet by ity of ALLERGY) 00:00: mouth [place] 180 mg 00 daily. Medical tablet Branch fexofenadin Yes [id number] 180mg Take 1 [facility] (LUIS 6-13 tablet by ity of ALLERGY) 00:00: mouth [place] 180 mg 00 daily. Medical tablet Branch fexofenadin Yes [id number] 180mg Take 1 [facility] (LUIS 6-13 tablet by ity of ALLERGY) 00:00: mouth [place] 180 mg 00 daily. Medical tablet Branch fexofenadin Yes [id number] 180mg Take 1 [facility] (LUIS 6-13 tablet by ity of ALLERGY) 00:00: mouth [place] 180 mg 00 daily. Medical tablet Branch fexofenadin 0 Yes [id number] 180mg Take 1 [facility] (LUIS 6-13 tablet by ity of ALLERGY) 00:00: mouth [place] 180 mg 00 daily. Medical tablet Branch fexofenadin 0 Yes [id number] 180mg Take 1 [facility] (LUIS 6-13 tablet by ity of ALLERGY) 00:00: mouth [place] 180 mg 00 daily. Medical tablet Branch fexofenadin 0 Yes [id number] 180mg Take 1 [facility] (LUIS 6-13 tablet by ity of ALLERGY) 00:00: mouth [place] 180 mg 00 daily. Medical tablet Branch fexofenadin 0 Yes [id number] 180mg Take 1 [facility] (LUIS 6-13 tablet by ity of ALLERGY) 00:00: mouth [place] 180 mg 00 daily. Medical tablet Branch fexofenadin 0 Yes [id number] 180mg Take 1 [facility] (LUIS 6-13 tablet by ity of ALLERGY) 00:00: mouth [place] 180 mg 00 daily. Medical tablet Branch fexofenadin 0 Yes [id number] 180mg Take 1 [facility] (LUIS 6-13 tablet by ity of ALLERGY) 00:00: mouth [place] 180 mg 00 daily. Medical tablet Branch fexofenadin 0 Yes [id number] 180mg Take 1 [facility] (LUIS 6-13 tablet by ity of ALLERGY) 00:00: mouth [place] 180 mg 00 daily. Medical tablet Branch fexofenadin 0 2022- No [id number] 180mg Take 1 [facility] (LUIS 6-13 10-19 tablet by ity of ALLERGY) 00:00: 00:00 mouth [place] 180 mg 00 :00 daily. Medical tablet Branch fexofenadin 0 2022- No [id number] 180mg Take 1 [facility] (LUIS 6-13 10-19 tablet by ity of ALLERGY) 00:00: 00:00 mouth [place] 180 mg 00 :00 daily. Medical tablet Branch fexofenadin 2021-0 2022- No [id number] 180mg Take 1 [facility] (LUIS 6-13 10-19 tablet by ity of ALLERGY) 00:00: 00:00 mouth [place] 180 mg 00 :00 daily. Medical tablet Branch rosuvastati Yes [id number] 10mg Take 1 [facility] n 10 mg 6-08 tablet by ity of tablet 00:00: mouth at [place] [address] bedtime. Medical Branch rosuvastati 2021-0 Yes [id number] 10mg Take 1 [facility] n 10 mg 6-08 tablet by ity of tablet 00:00: mouth at [place] bedtime. Medical Branch rosuvastati 2021-0 Yes [id number] 10mg Take 1 [facility] n 10 mg 6-08 tablet by ity of tablet 00:00: mouth at [place] bedtime. Medical Branch rosuvastati 2021-0 Yes [id number] 10mg Take 1 [facility] n 10 mg 6-08 tablet by ity of tablet 00:00: mouth at [place] [address] bedtime. Medical Branch rosuvastati 2021- Yes [id number] 10mg Take 1 [facility] n 10 mg 6-08 tablet by ity of tablet 00:00: mouth at [place] bedtime. Medical Branch rosuvastati 2021-0 Yes [id number] 10mg Take 1 [facility] n 10 mg 6-08 tablet by ity of tablet 00:00: mouth at [place] [address] bedtime. Medical Branch rosuvastati Yes [id number] 10mg Take 1 [facility] n 10 mg 6-08 tablet by ity of tablet 00:00: mouth at [place] [address] bedtime. Medical Branch rosuvastati Yes [id number] 10mg Take 1 [facility] n 10 mg 6-08 tablet by ity of tablet 00:00: mouth at [place] [address] bedtime. Medical Branch rosuvastati 2021-0 Yes [id number] 10mg Take 1 [facility] n 10 mg 6-08 tablet by ity of tablet 00:00: mouth at [place] [address] bedtime. Medical Branch rosuvastati 2021-0 Yes [id number] 10mg Take 1 [facility] n 10 mg 6-08 tablet by ity of tablet 00:00: mouth at [place] [address] bedtime. Medical Branch rosuvastati 2-0 Yes [id number] 10mg Take 1 [facility] n 10 mg 6-08 tablet by ity of tablet 00:00: mouth at [place] [address] bedtime. Medical Branch rosuvastati 2-0 Yes [id number] 10mg Take 1 [facility] n 10 mg 6-08 tablet by ity of tablet 00:00: mouth at [place] 00 bedtime. Medical Branch rosuvastati 2021- Yes [id number] 10mg Take 1 [facility] n 10 mg 6-08 tablet by ity of tablet 00:00: mouth at [place] bedtime. Medical Branch rosuvastati Yes [id number] 10mg Take 1 [facility] n 10 mg 6-08 tablet by ity of tablet 00:00: mouth at [place] bedtime. Medical Branch rosuvastati 2021-0 Yes [id number] 10mg Take 1 [facility] n 10 mg 6-08 tablet by ity of tablet 00:00: mouth at [place] bedtime. Medical Branch rosuvastati 2021- Yes [id number] 10mg Take 1 [facility] n 10 mg 6-08 tablet by ity of tablet 00:00: mouth at [place] bedtime. Medical Branch rosuvastati Yes [id number] 10mg Take 1 [facility] n 10 mg 6-08 tablet by ity of tablet 00:00: mouth at [place] bedtime. Medical Branch rosuvastati 2021- Yes [id number] 10mg Take 1 [facility] n 10 mg 6-08 tablet by ity of tablet 00:00: mouth at [place] bedtime. Medical Branch rosuvastati Yes [id number] 10mg Take 1 [facility] n 10 mg 6-08 tablet by ity of tablet 00:00: mouth at [place] bedtime. Medical Branch rosuvastati Yes [id number] 10mg Take 1 [facility] n 10 mg 6-08 tablet by ity of tablet 00:00: mouth at [place] bedtime. Medical Branch rosuvastati 2021-0 Yes [id number] 10mg Take 1 [facility] n 10 mg 6-08 tablet by ity of tablet 00:00: mouth at [place] bedtime. Medical Branch rosuvastati 2021-0 Yes [id number] 10mg Take 1 [facility] n 10 mg 6-08 tablet by ity of tablet 00:00: mouth at [place] bedtime. Medical Branch rosuvastati 2021-0 Yes [id number] 10mg Take 1 [facility] n 10 mg 6-08 tablet by ity of tablet 00:00: mouth at [place] bedtime. Medical Branch rosuvastati 2021-0 Yes [id number] 10mg Take 1 [facility] n 10 mg 6-08 tablet by ity of tablet 00:00: mouth at [place] [address] bedtime. Medical Branch rosuvastati 2021- Yes [id number] 10mg Take 1 [facility] n 10 mg 6-08 tablet by ity of tablet 00:00: mouth at [place] bedtime. Medical Branch rosuvastati 2021-0 Yes [id number] 10mg Take 1 [facility] n 10 mg 6-08 tablet by ity of tablet 00:00: mouth at [place] bedtime. Medical Branch rosuvastati 2021-0 Yes [id number] 10mg Take 1 [facility] n 10 mg 6-08 tablet by ity of tablet 00:00: mouth at [place] bedtime. Medical Branch rosuvastati 2021- Yes [id number] 10mg Take 1 [facility] n 10 mg 6-08 tablet by ity of tablet 00:00: mouth at [place] bedtime. Medical Branch rosuvastati Yes [id number] 10mg Take 1 [facility] n 10 mg 6-08 tablet by ity of tablet 00:00: mouth at [place] bedtime. Medical Branch rosuvastati 2021-0 Yes [id number] 10mg Take 1 [facility] n 10 mg 6-08 tablet by ity of tablet 00:00: mouth at [place] bedtime. Medical Branch rosuvastati Yes [id number] 10mg Take 1 [facility] n 10 mg 6-08 tablet by ity of tablet 00:00: mouth at [place] [address] bedtime. Medical Branch rosuvastati Yes [id number] 10mg Take 1 [facility] n 10 mg 6-08 tablet by ity of tablet 00:00: mouth at [place] [address] bedtime. Medical Branch rosuvastati 2021-0 Yes [id number] 10mg Take 1 [facility] n 10 mg 6-08 tablet by ity of tablet 00:00: mouth at [place] [address] bedtime. Medical Branch rosuvastati 2021-0 Yes [id number] 10mg Take 1 [facility] n 10 mg 6-08 tablet by ity of tablet 00:00: mouth at [place] [address] bedtime. Medical Branch rosuvastati 2021-0 Yes [id number] 10mg Take 1 [facility] n 10 mg 6-08 tablet by ity of tablet 00:00: mouth at [place] [address] bedtime. Medical Branch rosuvastati 2021-0 Yes [id number] 10mg Take 1 [facility] n 10 mg 6-08 tablet by ity of tablet 00:00: mouth at [place] [address] [facility] rosuvastati Yes [id number] 10mg Take 1 [facility] n 10 mg 6-08 tablet by ity of tablet 00:00: mouth at [place] [address] [facility] rosuvastati Yes [id number] 10mg Take 1 [facility] n 10 mg 6-08 tablet by ity of tablet 00:00: mouth at [place] [address] [facility] rosuvastati Yes [id number] 10mg Take 1 [facility] n 10 mg 6-08 tablet by ity of tablet 00:00: mouth at [place] [address] [facility] rosuvastati Yes [id number] 10mg Take 1 [facility] n 10 mg 6-08 tablet by ity of tablet 00:00: mouth at [place] [address] [facility] rosuvastati Yes [id number] 10mg Take 1 [facility] n 10 mg 6-08 tablet by ity of tablet 00:00: mouth at [place] [address] [facility] rosuvastati Yes [id number] 10mg Take 1 [facility] n 10 mg 6-08 tablet by ity of tablet 00:00: mouth at [place] [address] [facility] rosuvastati Yes [id number] 10mg Take 1 [facility] n 10 mg 6-08 tablet by ity of tablet 00:00: mouth at [place] [address] [facility] rosuvastati Yes [id number] 10mg Take 1 [facility] n 10 mg 6-08 tablet by ity of tablet 00:00: mouth at [place] [address] [facility] rosuvastati Yes [id number] 10mg Take 1 [facility] n 10 mg 6-08 tablet by ity of tablet 00:00: mouth at [place] [address] [facility] rosuvastati 2021- No [id number] 10mg Take 1 [facility] n 10 mg 6-08 10-13 tablet by ity of tablet 00:00: 00:00 mouth at [place] 00 :[address] [facility] water for 2021- No PRN, Univers irrigation 03-02- Starting ity of irrigation 14:20: 15:50 [place] solution 00 :27 03/02/22 at Medica l 0920, Branch Until 03/02/22 at 1050, Routine, Intra-op simethicone 2021- No PRN, [facility] rs (GAS RELIEF 03-02- Starting ity of (SIMETHICON 14:20: 15:50 on Tue Emanuel as E)) 40 00 :27 03/02/22 at Medical mg/0.6 mL 0920, Branch drops Until Tue03/02/22 at 1050, Routine, Intra-op lactated 2021- No 1000mL at 42 [facility] ringers IV 03-02 06-07 mL/hr, ity of infusion 12:45: 12:59 1,000 mL, E[place] as 1,000 mL 00 :00 IV Medical Infusion, Branch ONCE, 1 dose, On Tue03/02/22 at 0745, Routine, DSU Pre-op lactated 2021- No 1000mL at 42 [facility] ringers IV 03-02 06-07 mL/hr, ity of infusion 12:45: 12:59 1,000 mL, [place] as 1,000 mL 00 :00 IV Medical Infusion, Branch ONCE, 1 dose, On Tue03/02/22 at 0745, Routine, DSU Pre-op FOLIC ACID Yes Take by [facility] ORAL 6-07 mouth ity of 11:23: daily. [address] Branch MULTIVIT Yes Take by [facility] s &MINERALS/F 6-07 mouth. ity of ERROUS FUM 11:23: [place] ([place] [address] Medical VITAMIN Branch ORAL) METHYLCELLU Yes [facility] s LOSE (FIBER 6-07 ity of THERAPY 11:23: [place] MISC) 09 Medical Branch DOCUSATE Yes Take by [facility] s SODIUM 6-07 mouth. ity of [...] 6-07 mouth ity of EXTRACT 11:23: daily. [place] ([place] Medical ORAL) Branch CALCIUM Yes Take by Univers ORAL 6-07 mouth ity of 11:23: daily. [place] Medical Branch DOCOSAHEXAN Yes 1000mg Take 1,000 Univers OIC 6-07 mg by ity of ACID/EPA 11:23: mouth [place] (FISH OIL 09 daily. Medical ORAL) Branch BIOTIN ORAL Yes Take by Uni vers 6-07 mouth. ity of 11:23: [place] Medical Branch FOLIC ACID Yes Take by Univ ers ORAL 6-07 mouth ity of 11:23: daily. [place] Medical Branch MULTIVIT Yes Take by Univer s &MINERALS/F 6-07 mouth. ity of ERROUS FUM 11:23: [place] (MULTI 09 Medical VITAMIN Branch ORAL) METHYLCELLU Yes Univer s LOSE (FIBER 6-07 ity of THERAPY 11:23: [place] MISC) Medical Branch DOCUSATE Yes Take by Univer s SODIUM 6-07 mouth. ity of (COLACE 11:23: [place] ORAL) Medical Branch vitamin C Yes 1000mg Take 1,000 [facility] with derrell 6-07 mg by ity of hips 11:23: mouth [place] (VITAMIN C) 09 daily. Medica l 1,000 mg Branch tablet cholecalcif Yes 1000U Take 1,000 Univers edmar, 6-07 Units by ity of vitamin D3, 11:23: mouth [place] (VITAMIN 09 daily. Medical D3) 1,000 Branch unit tablet CRANBERRY Yes [facility] FRUIT 6-07 mouth ity of EXTRACT 11:23: daily. [place] ([place] Medical ORAL) Branch CALCIUM Yes Take by Univers ORAL 6-07 mouth ity of 11:23: daily. [place] Medical Branch DOCOSAHEXAN Yes 1000mg Take 1,000 Univers OIC 6-07 mg by ity of ACID/EPA 11:23: mouth [place] (FISH OIL 09 daily. Medical ORAL) Branch BIOTIN ORAL Yes Take by Uni vers 6-07 mouth. ity of 11:23: [place] [address] Medical Branch FOLIC ACID Yes Take by Univ ers ORAL 6-07 mouth ity of 11:23: daily. [place] [address] Medical Branch MULTIVIT Yes Take by Univer s &MINERALS/F 6-07 mouth. ity of ERROUS FUM 11:23: [place] ([place] [address] Medical VITAMIN Branch ORAL) METHYLCELLU Yes Univer s LOSE (FIBER 6-07 ity of THERAPY 11:23: [facility]) 09 Medical Branch DOCUSATE Yes Take by Univer s SODIUM 6-07 mouth. ity of (COLACE 11:23: [place] ORAL) 09 Medical Branch vitamin C Yes 1000mg Take 1,000 Univers with derrell 6-07 mg by ity of hips 11:23: mouth [place] (VITAMIN C) 09 daily. Medica l 1,000 mg Branch tablet cholecalcif Yes 1000U Take 1,000 Univers edmar, 6-07 Units by ity of vitamin D3, 11:23: mouth [place] (VITAMIN 09 daily. Medical D3) 1,000 Branch unit tablet CRANBERRY Yes Take by Unive rs FRUIT 6-07 mouth ity of EXTRACT 11:23: daily. [place] ([place] Medical ORAL) Branch CALCIUM Yes Take by Univers ORAL 6-07 mouth ity of 11:23: daily. [place] [address] Medical Branch DOCOSAHEXAN Yes 1000mg Take 1,000 Univers OIC 6-07 mg by ity of ACID/EPA 11:23: mouth [place] (FISH OIL 09 daily. Medical ORAL) Branch BIOTIN ORAL Yes Take by Uni vers 6-07 mouth. ity of 11:23: [place] [address] Medical Branch FOLIC ACID Yes Take by Univ ers ORAL 6-07 mouth ity of 11:23: daily. [place] [address] Medical Branch MULTIVIT Yes Take by Univer s &MINERALS/F 6-07 mouth. ity of ERROUS FUM 11:23: [place] ([place] [address] Medical VITAMIN Branch ORAL) METHYLCELLU Yes Univer s LOSE (FIBER 6-07 ity of THERAPY 11:23: [place] MIS) 09 Medical Branch DOCUSATE Yes Take [...] 6-07 mouth ity of EXTRACT 11:23: daily. [place] ([place] Medical ORAL) Branch CALCIUM Yes Take by Univers ORAL 6-07 mouth ity of 11:23: daily. [place] Medical Branch DOCOSAHEXAN Yes 1000mg Take 1,000 Univers OIC 6-07 mg by ity of ACID/EPA 11:23: mouth [place] (FISH OIL 09 daily. Medical ORAL) Branch BIOTIN ORAL Yes Take by Uni vers 6-07 mouth. ity of 11:23: [place] [address] Medical Branch FOLIC ACID Yes Take by Univ ers ORAL 6-07 mouth ity of 11:23: daily. [place] Medical Branch MULTIVIT Yes Take by [facility] s &MINERALS/F 6-07 mouth. ity of ERROUS FUM 11:23: [place] (MULTI 09 Medical VITAMIN Branch ORAL) METHYLCELLU Yes Univer s LOSE (FIBER 6-07 ity of THERAPY 11:23: [place] MIS) 09 Medical Branch DOCUSATE Yes Take [...] by ity of vitamin D3, 11:23: mouth [place] (VITAMIN 09 daily. Medical D3) 1,000 Branch unit tablet CRANBERRY 0 Yes Take by [facility] rs FRUIT 6-07 mouth ity of EXTRACT 11:23: daily. [place] ([place] 09 Medical ORAL) Branch CALCIUM Yes Take by Univers ORAL 6-07 mouth ity of 11:23: daily. Medical Branch DOCOSAHEXAN Yes 1000mg Take 1,000 Univers OIC 6-07 mg by ity of ACID/EPA 11:23: mouth [place] (FISH OIL 09 daily. Medical ORAL) Branch BIOTIN ORAL Yes Take by Uni vers 6-07 mouth. ity of 11:23: Medical Branch FOLIC ACID Yes Take by Univ ers ORAL 6-07 mouth ity of 11:23: daily. [place] Medical Branch MULTIVIT Yes Take by Univer s &MINERALS/F 6-07 mouth. ity of ERROUS FUM 11:23: [place] (MULTI 09 Medical VITAMIN Branch ORAL) METHYLCELLU Yes Univer s LOSE (FIBER 6-07 ity of THERAPY 11:23: [place] MISC) Medical Branch DOCUSATE Yes Take by Univer s SODIUM 6-07 mouth. ity of (COLACE 11:23: [place] ORAL) Medical Branch vitamin C Yes 1000mg Take 1,000 Univers with derrell 6-07 mg by ity of hips 11:23: mouth [place] (VITAMIN C) 09 daily. Medica l 1,000 mg Branch tablet cholecalcif Yes 1000U Take 1,000 Univers edmar, 6-07 Units by ity of vitamin D3, 11:23: mouth [place] (VITAMIN 09 daily. Medical D3) 1,000 Branch unit tablet CRANBERRY Yes Take by Unive rs FRUIT 6-07 mouth ity of EXTRACT 11:23: daily. [place] ([place] Medical ORAL) Branch CALCIUM Yes Take by Univers ORAL 6-07 mouth ity of 11:23: daily. [place] Medical Branch DOCOSAHEXAN Yes 1000mg Take 1,000 Univers OIC 6-07 mg by ity of ACID/EPA 11:23: mouth [place] (FISH OIL 09 daily. Medical ORAL) Branch BIOTIN ORAL Yes Take by Uni vers 6-07 mouth. ity of 11:23: Medical Branch FOLIC ACID Yes Take by Univ ers ORAL 6-07 mouth ity of 11:23: daily. [place] [address] Medical Branch MULTIVIT Yes Take by Univer s &MINERALS/F 6-07 mouth. ity of ERROUS FUM 11:23: [place] (MULTI 09 Medical VITAMIN Branch ORAL) METHYLCELLU Yes Univer s LOSE (FIBER 6-07 ity of THERAPY 11:23: [facility]) Medical Branch DOCUSATE Yes Take by Univer s SODIUM 6-07 mouth. ity of (COLACE 11:23: [place] ORAL) Medical Branch vitamin C Yes 1000mg Take 1,000 Univers with derrell 6-07 mg by ity of hips 11:23: mouth [place] (VITAMIN C) 09 daily. Medica l 1,000 mg Branch tablet cholecalcif Yes 1000U Take 1,000 Univers edmar, 6-07 Units by ity of vitamin D3, 11:23: mouth [place] (VITAMIN 09 daily. Medical D3) 1,000 Branch unit tablet CRANBERRY Yes Take by [facility] rs FRUIT 6-07 mouth ity of EXTRACT 11:23: daily. [place] ([place] 09 Medical ORAL) Branch CALCIUM Yes Take by Univers ORAL 6-07 mouth ity of 11:23: daily. [place] [address] Medical Branch DOCOSAHEXAN Yes 1000mg Take 1,000 Univers OIC 6-07 mg by ity of ACID/EPA 11:23: mouth [place] (FISH OIL 09 daily. Medical ORAL) Branch BIOTIN ORAL Yes Take by Uni vers 6-07 mouth. ity of 11:23: [place] [address] Medical Branch FOLIC ACID Yes Take by Univ ers ORAL 6-07 mouth ity of 11:23: daily. [place] [address] Medical Branch MULTIVIT Yes Take by Univer s &MINERALS/F 6-07 mouth. ity of ERROUS FUM 11:23: [place] (MULTI 09 Medical VITAMIN Branch ORAL) METHYLCELLU 0 Yes Univer s LOSE (FIBER 6-07 ity of THERAPY 11:23: [facility]) Medical Branch DOCUSATE Yes Take by Univer s SODIUM 6-07 mouth. ity of (COLACE 11:23: [place] ORAL) 09 Medical Branch vitamin C Yes [...] 6-07 mouth ity of EXTRACT 11:23: daily. [place] ([place] Medical ORAL) Branch CALCIUM Yes Take by Univers ORAL 6-07 mouth ity of 11:23: daily. [place] Medical Branch DOCOSAHEXAN Yes 1000mg Take 1,000 [facility] OIC 6-07 mg by ity of ACID/EPA 11:23: mouth [place] (FISH OIL 09 daily. Medical ORAL) Branch BIOTIN ORAL Yes Take by Uni vers 6-07 mouth. ity of 11:23: [place] Medical Branch FOLIC ACID Yes Take by Univ ers ORAL 6-07 mouth ity of 11:23: daily. [place] Medical Branch MULTIVIT Yes Take by [facility] &MINER[facility]/F 6-07 mouth. ity of ERROUS FUM 11:23: [place] (MULTI 09 Medical VITAMIN Branch ORAL) METHYLCELLU Yes [facility]iver [facility] LOSE (FIBER 6-07 ity of THERAPY 11:23: [place] MISC) 09 Medical Branch [facility]ATE [facility] mouth. ity of (COLACE 11:23: [place] ORAL) 09 Medical Branch vitamin C Yes 1000mg Take 1,000 [facility] with derrell 6-07 mg by ity of hips 11:23: mouth [place] (VITAMIN C) 09 daily. Medica l 1,000 mg Branch tablet cholecalcif 0 Yes 1000U Take 1,000 [facility] edmar, 6-07 Units by ity of vitamin D3, 11:23: mouth [place] (VITAMIN 09 daily. Medical D3) 1,000 Branch unit tablet CRANBERRY 2021-0 Yes Take by [facility] rs FRUIT 6-07 mouth ity of EXTRACT 11:23: daily. [place] (CRANBERRY Medical ORAL) Branch CALCIUM 0 Yes Take by [facility] ORAL 6-07 mouth ity of 11:23: daily. [place] [facility] DOCOSAHEXAN Yes 1000mg Take 1,000 [facility] OIC 6-07 mg by ity of ACID/EPA 11:23: mouth [place] (FISH OIL 09 daily. Medical ORAL) Branch BIOTIN ORAL Yes Take by Uni vers 6-07 mouth. ity of 11:23: Medical Branch FOLIC ACID Yes Take by Univ ers ORAL 6-07 mouth ity of 11:23: daily. [place] [facility] MULTIVIT Yes Take by [facility] s &MINERALS/F 6-07 mouth. ity of ERROUS FUM 11:23: [place] (MULTI 09 Medical VITAMIN Branch ORAL) [facility]U [facility] ity of THERAPY 11:23: [place] MISC) 09 Medical Branch DOCUSATE Yes Take by [facility] SODIUM 6-07 mouth. ity of (COLACE 11:23: [place] ORAL) 09 Medical Branch vitamin C Yes 1000mg Take 1,000 [facility] with derrell 6-07 mg by ity of hips 11:23: mouth [place] (VITAMIN C) 09 daily. Medica l 1,000 mg Branch tablet cholecalcif Yes 1000U Take 1,000 [facility] edmar, 6-07 Units by ity of vitamin D3, 11:23: mouth [place] (VITAMIN 09 daily. Medical D3) 1,000 Branch unit tablet CRANBERRY Yes Take by [facility] rs FRUIT 6-07 mouth ity of EXTRACT 11:23: daily. [place] (CRANBERRY Medical ORAL) Branch CALCIUM Yes Take by [facility] ORAL 6-07 mouth ity of 11:23: daily. [place] [facility] DOCOSAHEXAN Yes 1000mg Take 1,000 [facility] OIC 6-07 mg by ity of ACID/EPA 11:23: mouth [place] (FISH OIL 09 daily. Medical ORAL) Branch BIOTIN ORAL Yes Take by Uni vers 6-07 mouth. ity of 11:23: Medical Branch FOLIC ACID Yes Take by [facility] ers ORAL 6-07 mouth ity of 11:23: daily. [place] [facility] MULTIVIT Yes Take by [facility] s &MINERALS/F 6-07 mouth. ity of ERROUS FUM 11:23: [place] (MULTI 09 Medical VITAMIN Branch ORAL) METHYLCELLU 0 Yes Univer s LOSE (FIBER 6-07 ity of THERAPY 11:23: [facility]) 09 Medical Branch DOCUSATE Yes Take by [...] by ity of vitamin D3, 11:23: mouth [place] (VITAMIN 09 daily. Medical D3) 1,000 Branch unit tablet CRANBERRY Yes [facility]-07 mouth ity of EXTRACT 11:23: daily. [place] (CRANBERRY 09 Medical ORAL) Branch CALCIUM Yes Take by [facility] ORAL 6-07 mouth ity of 11:23: daily. [place] [facility] DOCOSAHEXAN Yes 1000mg Take 1,000 [facility] OIC 6-07 mg by ity of ACID/EPA 11:23: mouth [place] (FISH OIL 09 daily. Medical ORAL) Branch BIOTIN ORAL Yes Take by Uni vers 6-07 mouth. ity of 11:23: [place] [address] Medical Branch FOLIC ACID Yes Take by [facility] ers ORAL 6-07 mouth ity of 11:23: daily. [place] [address] Medical Branch MULTIVIT Yes Take by [facility] s &MINERALS/F 6-07 mouth. ity of ERROUS FUM 11:23: [place] (MULTI 09 Medical VITAMIN Branch ORAL) METHYLCELLU 0 Yes Univer s LOSE (FIBER 6-07 ity of THERAPY 11:23: [facility]) 09 Medical Branch DOCUSATE Yes Take by [...] by ity of vitamin D3, 11:23: mouth [place] (VITAMIN 09 daily. Medical D3) 1,000 Branch unit tablet CRANBERRY Yes [facility]-07 mouth ity of EXTRACT 11:23: daily. [place] (CRANBERRY 09 Medical ORAL) Branch CALCIUM Yes Take by [facility] ORAL 6-07 mouth ity of 11:23: daily. [place] [facility] DOCOSAHEXAN Yes 1000mg Take 1,000 [facility] OIC 6-07 mg by ity of ACID/EPA 11:23: mouth [place] (FISH OIL 09 daily. Medical ORAL) Branch BIOTIN ORAL Yes Take by Uni vers 6-07 mouth. ity of 11:23: [place] [facility] FOLIC ACID Yes Take by Univ ers ORAL 6-07 mouth ity of 11:23: daily. [place] [facility] MULTIVIT Yes Take by [facility] s &MINERALS/F 6-07 mouth. ity of ERROUS FUM 11:23: [place] (MULTI 09 Medical VITAMIN Branch ORAL) METHYLCELLU Yes [facility] s LOSE (FIBER 6-07 ity of THERAPY 11:23: [place] MISC) 09 Medical Branch DOCUSATE Yes Take by [facility] s SODIUM 6-07 mouth. ity of (COLACE 11:23: [place] ORAL) 09 Medical Branch vitamin C Yes 1000mg Take 1,000 [facility] with derrell 6-07 mg by ity of hips 11:23: mouth [place] (VITAMIN C) 09 daily. Medica l 1,000 mg Branch tablet cholecalcif Yes 1000U Take 1,000 [facility] edmar, 6-07 Units by ity of vitamin D3, 11:23: mouth [place] (VITAMIN 09 daily. Medical D3) 1,000 Branch unit tablet CRANBERRY Yes Take by [facility] rs FRUIT 6-07 mouth ity of EXTRACT 11:23: daily. [place] (CRANBERRY 09 Medical ORAL) Branch CALCIUM Yes Take by [facility] ORAL 6-07 mouth ity of 11:23: daily. [place] [facility] DOCOSAHEXAN Yes 1000mg Take 1,000 [facility] OIC 6-07 mg by ity of ACID/EPA 11:23: mouth [place] (FISH OIL 09 daily. Medical ORAL) Branch BIOTIN ORAL Yes Take by Uni vers 6-07 mouth. ity of 11:23: Medical Branch FOLIC ACID Yes Take by Univ ers ORAL 6-07 mouth ity of 11:23: daily. [place] [facility] MULTIVIT Yes Take by [facility] s &MINERALS/F 6-07 mouth. ity of ERROUS FUM 11:23: [place] (MULTI 09 Medical VITAMIN Branch ORAL) METHYLCELLU Yes Univer s LOSE (FIBER 6-07 ity of THERAPY 11:23: [facility]) 09 Medical Branch DOCUSATE Yes Take by [facility] s SODIUM 6-07 mouth. ity of (COLACE 11:23: [place] ORAL) 09 Medical Branch vitamin C Yes 1000mg Take 1,000 [facility] with derrell 6-07 mg by ity of hips 11:23: mouth [place] (VITAMIN C) 09 daily. Medica l 1,000 mg Branch tablet cholecalcif Yes 1000U Take 1,000 [facility] edmar, 6-07 Units by ity of vitamin D3, 11:23: mouth [place] (VITAMIN 09 daily. Medical D3) 1,000 Branch unit tablet CRANBERRY Yes Take by [facility]ive rs FRUIT 6-07 mouth ity of EXTRACT 11:23: daily. [place] (CRANBERRY 09 Medical ORAL) Branch CALCIUM Yes Take by [facility] ORAL 6-07 mouth ity of 11:23: daily. Medical Branch DOCOSAHEXAN Yes 1000mg Take 1,000 [facility] OIC 6-07 mg by ity of ACID/EPA 11:23: mouth [place] (FISH OIL 09 daily. Medical ORAL) Branch BIOTIN ORAL Yes Take by Uni vers 6-07 mouth. ity of 11:23: Medical Branch FOLIC ACID Yes Take by Univ ers ORAL 6-07 mouth ity of 11:23: daily. [place] [facility] MULTIVIT Yes Take by [facility] s &MINERALS/F 6-07 mouth. ity of ERROUS FUM 11:23: [place] (MULTI 09 Medical VITAMIN Branch ORAL) METHYLCELLU 0 Yes Univer s LOSE (FIBER 6-07 ity of THERAPY 11:23: [facility]) 09 Medical Branch DOCUSATE Yes [facility]-07 mouth. ity of (COLACE 11:23: [place] ORAL) 09 Medical Branch vitamin C Yes 1000mg Take 1,000 [facility] with derrell 6-07 mg by ity of hips 11:23: mouth [place] (VITAMIN C) 09 daily. Medica l 1,000 mg Branch tablet cholecalcif Yes 1000U Take 1,000 [facility] edmar, 6-07 Units by ity of vitamin D3, 11:23: mouth [place] (VITAMIN 09 daily. Medical D3) 1,000 Branch unit tablet CRANBERRY Yes Take by [facility] rs FRUIT 6-07 mouth ity of EXTRACT 11:23: daily. [place] (CRANBERRY Medical ORAL) Branch CALCIUM Yes Take by [facility] ORAL 6-07 mouth ity of 11:23: daily. [place] [facility] DOCOSAHEXAN Yes 1000mg Take 1,000 [facility] OIC 6-07 mg by ity of ACID/EPA 11:23: mouth [place] (FISH OIL 09 daily. Medical ORAL) Branch BIOTIN ORAL Yes Take by Uni vers 6-07 mouth. ity of 11:23: [place] [address] Medical Branch FOLIC ACID Yes Take by Univ ers ORAL 6-07 mouth ity of 11:23: daily. [place] [address] Medical Branch MULTIVIT Yes [facility] &MIN[facility]/F 6-07 mouth. ity of ERROUS FUM 11:23: [place] (MULTI 09 Medical VITAMIN Branch ORAL) METHYLCELLU 0 Yes [facility]FIBER 6-07 ity of THERAPY 11:23: [facility]) 09 Medical Branch DOCUSATE Yes Take by [facility] SODIUM 6-07 mouth. ity of (COLACE 11:23: [place] ORAL) 09 Medical Branch vitamin C Yes 1000mg Take 1,000 [facility] with derrell 6-07 mg by ity of hips 11:23: mouth [place] (VITAMIN C) 09 daily. Medica l 1,000 mg Branch tablet cholecalcif 0 Yes 1000U Take 1,000 [facility] edmar, 6-07 Units by ity of vitamin D3, 11:23: mouth [place] (VITAMIN 09 daily. Medical D3) 1,000 Branch unit tablet CRANBERRY Yes Take by [facility]ive rs FRUIT 6-07 mouth ity of EXTRACT 11:23: daily. [place] (CRANBERRY Medical ORAL) Branch CALCIUM Yes Take by [facility] ORAL 6-07 mouth ity of 11:23: daily. [place] [facility] DOCOSAHEXAN Yes 1000mg Take 1,000 [facility] OIC 6-07 mg by ity of ACID/EPA 11:23: mouth [place] (FISH OIL 09 daily. Medical ORAL) Branch BIOTIN ORAL Yes Take by Uni vers 6-07 mouth. ity of 11:23: Medical Branch FOLIC ACID Yes Take by Univ ers ORAL 6-07 mouth ity of 11:23: daily. [place] [facility] MULTIVIT Yes Take by [facility] s &MINERALS/F 6-07 mouth. ity of ERROUS FUM 11:23: [place] (MULTI 09 Medical VITAMIN Branch ORAL) METHYLCELLU Yes Univer s LOSE (FIBER 6-07 ity of THERAPY 11:23: [place] MISC) 09 Medical Branch DOCUSATE Yes Take by [facility] s SODIUM 6-07 mouth. ity of (COLACE 11:23: [place] ORAL) 09 Medical Branch vitamin C Yes 1000mg Take 1,000 [facility] with derrell 6-07 mg by ity of hips 11:23: mouth [place] (VITAMIN C) 09 daily. Medica l 1,000 mg Branch tablet cholecalcif Yes 1000U Take 1,000 [facility] edmar, 6-07 Units by ity of vitamin D3, 11:23: mouth [place] (VITAMIN 09 daily. Medical D3) 1,000 Branch unit tablet CRANBERRY Yes Take by [facility] rs FRUIT 6-07 mouth ity of EXTRACT 11:23: daily. [place] (CRANBERRY Medical ORAL) Branch CALCIUM Yes Take by [facility] ORAL 6-07 mouth ity of 11:23: daily. [place] [facility] DOCOSAHEXAN Yes 1000mg Take 1,000 [facility] OIC 6-07 mg by ity of ACID/EPA 11:23: mouth [place] (FISH OIL 09 daily. Medical ORAL) Branch BIOTIN ORAL Yes Take by Uni vers 6-07 mouth. ity of 11:23: [place] [facility] FOLIC ACID Yes Take by Univ ers ORAL 6-07 mouth ity of 11:23: daily. [place] [facility] MULTIVIT Yes Take by [facility] s &MINERALS/F 6-07 mouth. ity of ERROUS FUM 11:23: [place] (MULTI Medical VITAMIN Branch ORAL) METHYLCELLU 0 Yes Univer s LOSE (FIBER 6-07 ity of THERAPY 11:23: [facility]) 09 Medical Branch DOCUSATE 0 Yes Take by Univer s SODIUM 6-07 mouth. ity of (COLACE 11:23: [place] ORAL) 09 Medical Branch vitamin C Yes 1000mg Take 1,000 [facility] with derrell 6-07 mg by ity of hips 11:23: mouth [place] (VITAMIN C) 09 daily. Medica l 1,000 mg Branch tablet cholecalcif Yes 1000U Take 1,000 [facility] edmar, 6-07 Units by ity of vitamin D3, 11:23: mouth [place] (VITAMIN 09 daily. Medical D3) 1,000 Branch unit tablet CRANBERRY [facility]-07 mouth ity of EXTRACT 11:23: daily. [place] (CRANBERRY Medical ORAL) Branch CALCIUM Yes Take by [facility] ORAL 6-07 mouth ity of 11:23: daily. [place] [facility] DOCOSAHEXAN Yes 1000mg Take 1,000 [facility] OIC 6-07 mg by ity of ACID/EPA 11:23: mouth [place] (FISH OIL 09 daily. Medical ORAL) Branch BIOTIN ORAL Yes Take by Uni vers 6-07 mouth. ity of 11:23: [place] [facility] FOLIC ACID Yes Take by Univ ers ORAL 6-07 mouth ity of 11:23: daily. [place] [facility] MULTIVIT 0 Yes Take by Univer s &MINERALS/F 6-07 mouth. ity of ERROUS FUM 11:23: [place] (MULTI 09 Medical VITAMIN Branch ORAL) METHYLCELLU 0 Yes Univer s LOSE (FIBER 6-07 ity of THERAPY 11:23: [facility]) 09 Medical Branch DOCUSATE 0 Yes Take [...] Branch unit tablet CRANBERRY Yes Take by [employer] [facility] FRUIT 6-07 mouth ity of EXTRACT 11:23: daily. [place] (CRANBERRY Medical ORAL) Branch CALCIUM Yes Take by [facility] ORAL 6-07 mouth ity of 11:23: daily. [place] [facility] DOCOSAHEXAN Yes 1000mg Take 1,000 [facility] OIC 6-07 mg by ity of ACID/EPA 11:23: mouth [place] (FISH OIL 09 daily. Medical ORAL) Branch BIOTIN ORAL Yes Take by Uni vers 6-07 mouth. ity of 11:23: [place] [facility] FOLIC ACID Yes Take by Univ ers ORAL 6-07 mouth ity of 11:23: daily. [place] [facility] MULTIVIT Yes Take by Univer s &MINERALS/F 6-07 mouth. ity of ERROUS FUM 11:23: [place] (MULTI 09 Medical VITAMIN Branch ORAL) METHYLCELLU Yes Univer s LOSE (FIBER 6-07 ity of THERAPY 11:23: [place] MISC) 09 Medical Branch DOCUSATE Yes Take [...] by ity of vitamin D3, 11:23: mouth [place] (VITAMIN 09 daily. Medical D3) 1,000 Branch unit tablet CRANBERRY Yes Take by Unive rs FRUIT 6-07 mouth ity of EXTRACT 11:23: daily. [place] (CRANBERRY Medical ORAL) Branch CALCIUM Yes Take by [facility] ORAL 6-07 mouth ity of 11:23: daily. [place] [facility] DOCOSAHEXAN Yes 1000mg Take 1,000 [facility] OIC 6-07 mg by ity of ACID/EPA 11:23: mouth [place] (FISH OIL 09 daily. Medical ORAL) Branch BIOTIN ORAL Yes Take by Uni vers 6-07 mouth. ity of 11:23: [place] [facility] FOLIC ACID Yes Take by Univ ers ORAL 6-07 mouth ity of 11:23: daily. [place] [facility] MULTIVIT Yes Take by Univer s &MINERALS/F 6-07 mouth. ity of ERROUS FUM 11:23: [place] (MULTI 09 Medical VITAMIN Branch ORAL) METHYLCELLU Yes Univer s LOSE (FIBER 6-07 ity of THERAPY 11:23: [place] MISC) Medical Branch DOCUSATE Yes Take by [facility]iver s SODIUM 6-07 mouth. ity of (COLACE 11:23: [place] ORAL) 09 Medical Branch vitamin C Yes 1000mg Take 1,000 [facility] with derrell 6-07 mg by ity of hips 11:23: mouth [place] (VITAMIN C) 09 daily. Medica l 1,000 mg Branch tablet cholecalcif Yes 1000U Take 1,000 [facility] edmar, 6-07 Units by ity of vitamin D3, 11:23: mouth [place] (VITAMIN 09 daily. Medical D3) 1,000 Branch unit tablet CRANBERRY [facility] mouth ity of EXTRACT 11:23: daily. [place] (CRANBERRY Medical ORAL) Branch CALCIUM Yes Take by Univers ORAL 6-07 mouth ity of 11:23: daily. [place] [facility] DOCOSAHEXAN Yes 1000mg Take 1,000 [facility] OIC 6-07 mg by ity of ACID/EPA 11:23: mouth [place] (FISH OIL 09 daily. Medical ORAL) Branch BIOTIN ORAL Yes Take by Uni vers 6-07 mouth. ity of 11:23: [place] [facility] FOLIC ACID Yes Take by Univ ers ORAL 6-07 mouth ity of 11:23: daily. [place] [address] Medical Branch MULTIVIT Yes Take by Univer s &MINERALS/F 6-07 mouth. ity of ERROUS FUM 11:23: [place] (MULTI 09 Medical VITAMIN Branch ORAL) METHYLCELLU 0 Yes Univer s LOSE (FIBER 6-07 ity of THERAPY 11:23: [facility]) 09 Medical Branch DOCUSATE Yes Take by Univer s SODIUM 6-07 mouth. ity of (COLACE 11:23: [place] ORAL) 09 Medical Branch vitamin C Yes 1000mg Take 1,000 [facility] with derrell 6-07 mg by ity of hips 11:23: mouth [place] (VITAMIN C) 09 daily. Medica l 1,000 mg Branch tablet cholecalcif Yes 1000U Take 1,000 [facility] edamr, 6-07 Units by ity of vitamin D3, 11:23: mouth [place] (VITAMIN 09 daily. Medical D3) 1,000 Branch unit tablet CRANBERRY Yes [facility]-07 mouth ity of EXTRACT 11:23: daily. [place] (CRANBERRY 09 Medical ORAL) Branch CALCIUM Yes Take by Univers ORAL 6-07 mouth ity of 11:23: daily. [place] [address] Medical Branch DOCOSAHEXAN Yes 1000mg Take 1,000 [facility] OIC 6-07 mg by ity of ACID/EPA 11:23: mouth [place] (FISH OIL 09 daily. Medical ORAL) Branch BIOTIN ORAL Yes Take by Uni vers 6-07 mouth. ity of 11:23: [place] [address] Medical Branch FOLIC ACID Yes Take by Univ ers ORAL 6-07 mouth ity of 11:23: daily. [place] [address] Medical Branch MULTIVIT Yes Take by Univer s &MINERALS/F 6-07 mouth. ity of ERROUS FUM 11:23: [place] (MULTI 09 Medical VITAMIN Branch ORAL) METHYLCELLU 0 Yes Univer s LOSE (FIBER 6-07 ity of THERAPY 11:23: [facility]) Medical Branch DOCUSATE 0 Yes Take by Univer s SODIUM 6-07 mouth. ity of (COLACE 11:23: [place] ORAL) 09 Medical Branch vitamin C Yes [...] 6-07 mouth ity of EXTRACT 11:23: daily. [place] (CRANBERRY Medical ORAL) Branch CALCIUM 0 Yes Take by [facility] ORAL 6-07 mouth ity of 11:23: daily. [place] [facility] Branch DOCOSAHEXAN Yes 1000mg Take 1,000 [facility] OIC 6-07 mg by ity of ACID/EPA 11:23: mouth [place] (FISH OIL 09 daily. Medical ORAL) Branch BIOTIN ORAL Yes Take by Uni vers 6-07 mouth. ity of 11:23: Medical Branch FOLIC ACID Yes Take by Univ ers ORAL 6-07 mouth ity of 11:23: daily. [place] [facility] MULTIVIT Yes [facility] &[facility]/F 6-07 mouth. ity of ERROUS FUM 11:23: [place] (MULTI 09 Medical VITAMIN Branch ORAL) METHYLCELLU [...] by ity of vitamin D3, 11:23: mouth [place] (VITAMIN 09 daily. Medical D3) 1,000 Branch unit tablet CRANBERRY 2021-0 Yes Take by [facility]ive rs FRUIT 6-07 mouth ity of EXTRACT 11:23: daily. [place] (CRANBERRY Medical ORAL) Branch CALCIUM Yes Take by [facility] ORAL 6-07 mouth ity of 11:23: daily. [place] [facility] DOCOSAHEXAN Yes 1000mg Take 1,000 [facility] OIC 6-07 mg by ity of ACID/EPA 11:23: mouth [place] (FISH OIL daily. Medical ORAL) Branch BIOTIN ORAL Yes Take by Uni vers 6-07 mouth. ity of 11:23: Medical Branch FOLIC ACID Yes Take by [facility] ers ORAL 6-07 mouth ity of 11:23: daily. [place] [facility] MULTIVIT Yes Take by [facility] s &MINERALS/F 6-07 mouth. ity of ERROUS FUM 11:23: [place] (MULTI 09 Medical VITAMIN Branch ORAL) METHYLCELLU Yes [facility] s LOSE (FIBER 6-07 ity of THERAPY 11:23: [place] MISC) Medical Branch DOCUSATE Yes [facility]-07 mouth. ity of (COLACE 11:23: [place] ORAL) Medical Branch vitamin C Yes 1000mg Take 1,000 [facility] with derrell 6-07 mg by ity of hips 11:23: mouth [place] (VITAMIN C) 09 daily. Medica l 1,000 mg Branch tablet cholecalcif Yes 1000U Take 1,000 [facility] edmar, 6-07 Units by ity of vitamin D3, 11:23: mouth [place] (VITAMIN 09 daily. Medical D3) 1,000 Branch unit tablet CRANBERRY Yes Take by [facility] rs FRUIT 6-07 mouth ity of EXTRACT 11:23: daily. [place] (CRANBERRY Medical ORAL) Branch CALCIUM Yes Take by Univers ORAL 6-07 mouth ity of 11:23: daily. [place] [facility] DOCOSAHEXAN Yes 1000mg Take 1,000 [facility] OIC 6-07 mg by ity of ACID/EPA 11:23: mouth [place] (FISH OIL 09 daily. Medical ORAL) Branch BIOTIN ORAL Yes Take by Uni vers 6-07 mouth. ity of 11:23: [place] [facility] FOLIC ACID Yes Take by Univ ers ORAL 6-07 mouth ity of 11:23: daily. [place] [facility] MULTIVIT Yes Take by [facility] s &MINERALS/F 6-07 mouth. ity of ERROUS FUM 11:23: [place] (MULTI 09 Medical VITAMIN Branch ORAL) METHYLCELLU 2021-0 Yes Univer s LOSE (FIBER 6-07 ity of THERAPY 11:23: [facility]) 09 Medical Branch DOCUSATE 0 Yes Take [...] 6-07 mouth ity of EXTRACT 11:23: daily. [place] (CRANBERRY 09 Medical ORAL) Branch CALCIUM Yes Take by Univers ORAL 6-07 mouth ity of 11:23: daily. [place] [facility] DOCOSAHEXAN Yes 1000mg Take 1,000 [facility] OIC 6-07 mg by ity of ACID/EPA 11:23: mouth [place] (FISH OIL 09 daily. Medical ORAL) Branch BIOTIN ORAL 0 Yes Take by Uni vers 6-07 mouth. ity of 11:23: [place] [address] Medical Branch FOLIC ACID 0 Yes Take by Univ ers ORAL 6-07 mouth ity of 11:23: daily. [place] [facility] MULTIVIT Yes Take by [facility] s &MINERALS/F 6-07 mouth. ity of ERROUS FUM 11:23: [place] (MULTI 09 Medical VITAMIN Branch ORAL) METHYLCELLU 0 Yes Univer s LOSE (FIBER 6-07 ity of THERAPY 11:23: [facility]) 09 Medical Branch DOCUSATE 0 Yes Take by [facility] s SODIUM 6-07 mouth. ity of (COLACE 11:23: [place] ORAL) 09 Medical Branch vitamin C 0 Yes 1000mg Take 1,000 [facility] with derrell 6-07 mg by ity of hips 11:23: mouth [place] (VITAMIN C) 09 daily. Medica l 1,000 mg Branch tablet cholecalcif 2022-0 Yes 1000U Take 1,000 [facility] edmar, 6-07 Units by ity of vitamin D3, 11:23: mouth [place] (VITAMIN 09 daily. Medical D3) 1,000 Branch unit tablet CRANBERRY [facility] mouth ity of EXTRACT 11:23: daily. [place] (CRANBERRY Medical ORAL) Branch CALCIUM Yes Take by [facility] ORAL 6-07 mouth ity of 11:23: daily. [place] [facility] DOCOSAHEXAN Yes 1000mg Take 1,000 [facility] OIC 6-07 mg by ity of ACID/EPA 11:23: mouth [place] (FISH OIL 09 daily. Medical ORAL) Branch BIOTIN ORAL Yes Take by Uni vers 6-07 mouth. ity of 11:23: [place] [address] Medical Branch FOLIC ACID Yes Take by Univ ers ORAL 6-07 mouth ity of 11:23: daily. [place] [address] Medical Branch MULTIVIT Yes [facility] &[facility]/F 6-07 mouth. ity of ERROUS FUM 11:23: [place] (MULTI 09 Medical VITAMIN Branch ORAL) METHYLCELLU Yes [facility] s LOSE (FIBER 6-07 ity of THERAPY 11:23: [place] MISC) Medical Branch DOCUSATE Yes [facility] 6-07 mouth. ity of (COLACE 11:23: [place] ORAL) 09 Medical Branch vitamin C Yes 1000mg Take 1,000 [facility] with derrell 6-07 mg by ity of hips 11:23: mouth [place] (VITAMIN C) 09 daily. Medica l 1,000 mg Branch tablet cholecalcif Yes 1000U Take 1,000 [facility] edmar, 6-07 Units by ity of vitamin D3, 11:23: mouth [place] (VITAMIN 09 daily. Medical D3) 1,000 Branch unit tablet CRANBERRY Yes [facility]07 mouth ity of EXTRACT 11:23: daily. [place] (CRANBERRY 09 Medical ORAL) Branch CALCIUM Yes Take by Univers ORAL 6-07 mouth ity of 11:23: daily. [place] [facility] DOCOSAHEXAN Yes 1000mg Take 1,000 [facility] OIC 6-07 mg by ity of ACID/EPA 11:23: mouth [place] (FISH OIL 09 daily. Medical ORAL) Branch BIOTIN ORAL Yes Take by [facility] vers 6-07 mouth. ity of 11:23: Medical Branch FOLIC ACID Yes Take by Univ ers ORAL 6-07 mouth ity of 11:23: daily. [place] [facility] MULTIVIT Yes Take by [facility] s &MINERALS/F 6-07 mouth. ity of ERROUS FUM 11:23: [place] (MULTI 09 Medical VITAMIN Branch ORAL) METHYLCELLU 0 Yes [facility]iver s LOSE (FIBER 6-07 ity of THERAPY 11:23: [place] MISC) 09 Medical Branch DOCUSATE Yes Take by [facility] s SODIUM 6-07 mouth. ity of (COLACE 11:23: [place] ORAL) 09 Medical Branch vitamin C Yes 1000mg Take 1,000 [facility] with derrell 6-07 mg by ity of hips 11:23: mouth [place] (VITAMIN C) 09 daily. Medica l 1,000 mg Branch tablet cholecalcif Yes 1000U Take 1,000 [facility] edmar, 6-07 Units by ity of vitamin D3, 11:23: mouth [place] (VITAMIN 09 daily. Medical D3) 1,000 Branch unit tablet CRANBERRY Yes Take by [facility] rs FRUIT 6-07 mouth ity of EXTRACT 11:23: daily. [place] (CRANBERRY 09 Medical ORAL) Branch CALCIUM Yes Take by Univers ORAL 6-07 mouth ity of 11:23: daily. [place] [facility] DOCOSAHEXAN Yes 1000mg Take 1,000 [facility] OIC 6-07 mg by ity of ACID/EPA 11:23: mouth [place] (FISH OIL 09 daily. Medical ORAL) Branch BIOTIN ORAL Yes Take by [facility] vers 6-07 mouth. ity of 11:23: Medical Branch FOLIC ACID Yes Take by [facility] ers ORAL 6-07 mouth ity of 11:23: daily. [place] [facility] MULTIVIT Yes Take by [facility] s &MINERALS/F 6-07 mouth. ity of ERROUS FUM 11:23: [place] (MULTI 09 Medical VITAMIN Branch ORAL) METHYLCELLU 0 Yes Univer s LOSE (FIBER 6-07 ity of THERAPY 11:23: [facility]) 09 Medical Branch DOCUSATE Yes [facility]-07 mouth. ity of (COLACE 11:23: [place] ORAL) 09 Medical Branch vitamin C Yes 1000mg Take 1,000 [facility] with derrell 6-07 mg by ity of hips 11:23: mouth [place] (VITAMIN C) 09 daily. Medica l 1,000 mg Branch tablet cholecalcif 0 Yes 1000U Take 1,000 [facility] edmar, 6-07 Units by ity of vitamin D3, 11:23: mouth [place] (VITAMIN 09 daily. Medical D3) 1,000 Branch unit tablet CRANBERRY Yes Take by [facility] rs FRUIT 6-07 mouth ity of EXTRACT 11:23: daily. [place] (CRANBERRY 09 Medical ORAL) Branch CALCIUM Yes Take by [facility] ORAL 6-07 mouth ity of 11:23: daily. [place] [facility] DOCOSAHEXAN Yes 1000mg Take 1,000 [facility] OIC 6-07 mg by ity of ACID/EPA 11:23: mouth [place] (FISH OIL 09 daily. Medical ORAL) Branch BIOTIN ORAL Yes Take by [facility] vers 6-07 mouth. ity of 11:23: [place] [address] Medical Branch FOLIC ACID Yes Take by [facility] ers ORAL 6-07 mouth ity of 11:23: daily. [place] [address] Medical Branch MULTIVIT Yes [facility] &[facility]/F [facility]-07 mouth. ity of ERROUS FUM 11:23: [place] (MULTI 09 Medical VITAMIN Branch ORAL) METHYLCELLU 0 Yes [facility] LO[facility] (FIBER 6-07 ity of THERAPY 11:23: [facility]) 09 Medical Branch DOCUSATE 0 Yes Take by [facility] SODIUM 6-07 mouth. ity of (COLACE 11:23: [place] ORAL) 09 Medical Branch vitamin C Yes 1000mg Take 1,000 [facility] with derrell 6-07 mg by ity of hips 11:23: mouth [place] (VITAMIN C) 09 daily. Medica l 1,000 mg Branch tablet cholecalcif 0 Yes 1000U Take 1,000 [facility] edmar, 6-07 Units by ity of vitamin D3, 11:23: mouth [place] (VITAMIN 09 daily. Medical D3) 1,000 Branch unit tablet CRANBERRY Yes Take by Unive rs FRUIT 6-07 mouth ity of EXTRACT 11:23: daily. [place] (CRANBERRY Medical ORAL) Branch CALCIUM Yes Take by [facility] ORAL 6-07 mouth ity of 11:23: daily. [place] [facility] DOCOSAHEXAN Yes 1000mg Take 1,000 [facility] OIC 6-07 mg by ity of ACID/EPA 11:23: mouth [place] (FISH OIL 09 daily. Medical ORAL) Branch BIOTIN ORAL Yes Take by [facility] vers 6-07 mouth. ity of 11:23: [place] [facility] FOLIC ACID Yes Take by [facility] ers ORAL 6-07 mouth ity of 11:23: daily. [place] [facility] MULTIVIT Yes Take by Univer s &MINERALS/F 6-07 mouth. ity of ERROUS FUM 11:23: [place] (MULTI 09 Medical VITAMIN Branch ORAL) METHYLCELLU Yes Univer s LOSE (FIBER 6-07 ity of THERAPY 11:23: [place] MISC) Medical Branch DOCUSATE Yes Take by Univer s SODIUM 6-07 mouth. ity of (COLACE 11:23: [place] ORAL) Medical Branch vitamin C Yes 1000mg Take 1,000 [facility] with derrell 6-07 mg by ity of hips 11:23: mouth [place] (VITAMIN C) 09 daily. Medica l 1,000 mg Branch tablet cholecalcif Yes 1000U Take 1,000 [facility] edmar, 6-07 Units by ity of vitamin D3, 11:23: mouth [place] (VITAMIN 09 daily. Medical D3) 1,000 Branch unit tablet CRANBERRY Yes Take by Unive rs FRUIT 6-07 mouth ity of EXTRACT 11:23: daily. [place] (CRANBERRY Medical ORAL) Branch CALCIUM Yes Take by [facility] ORAL 6-07 mouth ity of 11:23: daily. [place] [facility] DOCOSAHEXAN Yes 1000mg Take 1,000 [facility] OIC 6-07 mg by ity of ACID/EPA 11:23: mouth [place] (FISH OIL 09 daily. Medical ORAL) Branch BIOTIN ORAL Yes Take by [facility] vers 6-07 mouth. ity of 11:23: [place] [facility] FOLIC ACID Yes Take by Univ ers ORAL 6-07 mouth ity of 11:23: daily. [place] [facility] MULTIVIT Yes Take by Univer s &MINERALS/F 6-07 mouth. ity of ERROUS FUM 11:23: [place] (MULTI 09 Medical VITAMIN Branch ORAL) METHYLCELLU 0 Yes Univer s LOSE (FIBER 6-07 ity of THERAPY 11:23: [facility]) 09 Medical Branch DOCUSATE 0 Yes Take [...] by ity of vitamin D3, 11:23: mouth [place] (VITAMIN 09 daily. Medical D3) 1,000 Branch unit tablet CRANBERRY Yes [facility] FRUIT 6-07 mouth ity of EXTRACT 11:23: daily. [place] (CRANBERRY Medical ORAL) Branch CALCIUM Yes Take by [facility] ORAL 6-07 mouth ity of 11:23: daily. [place] [facility] DOCOSAHEXAN Yes 1000mg Take 1,000 [facility] OIC 6-07 mg by ity of ACID/EPA 11:23: mouth [place] (FISH OIL 09 daily. Medical ORAL) Branch BIOTIN ORAL Yes Take by [facility] vers 6-07 mouth. ity of 11:23: [place] [facility] FOLIC ACID Yes Take by Univ ers ORAL 6-07 mouth ity of 11:23: daily. [place] [facility] MULTIVIT 0 Yes Take by Univer s &MINERALS/F 6-07 mouth. ity of ERROUS FUM 11:23: [place] (MULTI 09 Medical VITAMIN Branch ORAL) METHYLCELLU 0 Yes Univer s LOSE (FIBER 6-07 ity of THERAPY 11:23: [facility]) 09 Medical Branch DOCUSATE 0 Yes Take [...] Branch unit tablet CRANBERRY Yes Take by [employer] [facility] FRUIT 6-07 mouth ity of EXTRACT 11:23: daily. [place] (CRANBERRY Medical ORAL) Branch CALCIUM Yes Take by [employer] [facility] ORAL 6-07 mouth ity of 11:23: daily. [place] [facility] DOCOSAHEXAN Yes 1000mg Take 1,000 [facility] OIC 6-07 mg by ity of ACID/EPA 11:23: mouth [place] (FISH OIL 09 daily. Medical ORAL) Branch BIOTIN ORAL Yes Take by [facility] vers 6-07 mouth. ity of 11:23: Medical Branch FOLIC ACID Yes Take by Univ ers ORAL 6-07 mouth ity of 11:23: daily. [place] [facility] MULTIVIT Yes Take by [employer] [facility] &MINERALS/F 6-07 mouth. ity of ERROUS FUM 11:23: [place] (MULTI 09 Medical VITAMIN Branch ORAL) METHYLCELLU Yes Univer s LOSE (FIBER 6-07 ity of THERAPY 11:23: [place] MISC) 09 Medical Branch DOCUSATE Yes Take [...] Branch unit tablet CRANBERRY Yes Take by [employer] [facility] FRUIT 6-07 mouth ity of EXTRACT 11:23: daily. [place] (CRANBERRY 09 Medical ORAL) Branch CALCIUM Yes Take by [facility] ORAL 6 mouth ity of 11:23: daily. [place] [facility] DOCOSAHEXAN Yes 1000mg Take 1,000 [facility] OIC 6-07 mg by ity of ACID/EPA 11:23: mouth [place] (FISH OIL 09 daily. Medical ORAL) Branch BIOTIN ORAL Yes Take by [facility] vers 607 mouth. ity of 11:23: [place] [facility] FOLIC ACID Yes Take by [facility] ers ORAL 6 mouth ity of 11:58: daily. [place] [address] Medical Branch MULTIVIT Yes Take by Univer s &MINERALS/F 6- mouth. ity of ERROUS FUM 11:58: [place] (MULTI 16 Medical VITAMIN Branch ORAL) METHYLCELLU Yes Univer s LOSE (FIBER 6- ity of THERAPY 11:58: [facility]) Medical Branch DOCUSATE Yes Take by Univer s SODIUM 6- mouth. ity of (COLACE 11:58: [facility]) 16 Medical Branch vitamin C Yes 1000mg Take 1,000 [facility] with derrell 6-01 mg by ity of hips 11:58: mouth [place] (VITAMIN C) 16 daily. Medica l 1,000 mg Branch tablet cholecalcif Yes 1000U Take 1,000 [facility] edmar, 6-01 Units by ity of vitamin D3, 11:58: mouth [place] (VITAMIN 16 daily. Medical D3) 1,000 Branch unit tablet CRANBERRY Yes [facility] FRUIT 6 mouth ity of EXTRACT 11:58: daily. [place] (CRANBERRY 16 Medical ORAL) Branch CALCIUM Yes Take by [facility] ORAL 6 mouth ity of 11:58: daily. [place] [address] Medical Branch DOCOSAHEXAN Yes 1000mg Take 1,000 [facility] OIC 6-01 mg by ity of ACID/EPA 11:58: mouth [place] (FISH OIL 16 daily. Medical ORAL) Branch BIOTIN ORAL Yes Take by Uni vers 6-01 mouth. ity of 11:58: [place] [address] Medical Branch metformin Yes [id number] 500mg Take 1 U nivers ER 500 mg 5-31 tablet by ity o f 24 hr 00:00: mouth [place] tablet 00 daily with Medical breakfast. Branch STOP REGULAR METFORMIN. metformin 2021-0 Yes [id number] 500mg Take 1 U nivers ER 500 mg 5-31 tablet by ity o f 24 hr 00:00: mouth [place] tablet 00 daily with Medical breakfast. Branch STOP REGULAR METFORMIN. metformin 2021-0 Yes [id number] 500mg Take 1 U nivers ER 500 mg 5-31 tablet by ity o f 24 hr 00:00: mouth [place] tablet 00 daily with Medical breakfast. Branch STOP REGULAR METFORMIN. metformin 2021-0 Yes [id number] 500mg Take 1 U nivers ER 500 mg 5-31 tablet by ity o f 24 hr 00:00: mouth [place] tablet 00 daily with Medical breakfast. Branch STOP REGULAR METFORMIN. metformin 2021-0 Yes [id number] 500mg Take 1 U nivers ER 500 mg 5-31 tablet by ity o f 24 hr 00:00: mouth [place] tablet 00 daily with Medical breakfast. Branch STOP REGULAR METFORMIN. metformin 2021-0 Yes [id number] 500mg Take 1 U nivers ER 500 mg 5-31 tablet by ity o f 24 hr 00:00: mouth [place] tablet 00 daily with Medical breakfast. Branch STOP REGULAR METFORMIN. metformin 2021-0 Yes [id number] 500mg Take 1 U nivers ER 500 mg 5-31 tablet by ity o f 24 hr 00:00: mouth [place] tablet 00 daily with Medical breakfast. Branch STOP REGULAR METFORMIN. metformin 2021-0 Yes [id number] 500mg Take 1 U nivers ER 500 mg 5-31 tablet by ity o f 24 hr 00:00: mouth [place] tablet 00 daily with Medical breakfast. Branch STOP REGULAR METFORMIN. metformin 2021-0 Yes [id number] 500mg Take 1 U nivers ER 500 mg 5-31 tablet by ity o f 24 hr 00:00: mouth [place] tablet 00 daily with Medical breakfast. Branch STOP REGULAR METFORMIN. metformin 2021-0 Yes [id number] 500mg Take 1 U nivers ER 500 mg 5-31 tablet by ity o f 24 hr 00:00: mouth [place] tablet 00 daily with Medical breakfast. Branch STOP REGULAR METFORMIN. metformin 2021-0 Yes [id number] 500mg Take 1 U nivers ER 500 mg 5-31 tablet by ity o f 24 hr 00:00: mouth [place] tablet 00 daily with Medical breakfast. Branch STOP REGULAR METFORMIN. metformin 2021-0 Yes [id number] 500mg Take 1 U nivers ER 500 mg 5-31 tablet by ity o f 24 hr 00:00: mouth [place] tablet 00 daily with Medical breakfast. Branch STOP REGULAR METFORMIN. metformin 2021-0 Yes [id number] 500mg Take 1 U nivers ER 500 mg 5-31 tablet by ity o f 24 hr 00:00: mouth [place] tablet 00 daily with Medical breakfast. Branch STOP REGULAR METFORMIN. metformin 2021-0 Yes [id number] 500mg Take 1 U nivers ER 500 mg 5-31 tablet by ity o f 24 hr 00:00: mouth [place] tablet 00 daily with Medical breakfast. Branch STOP REGULAR METFORMIN. metformin 2021-0 Yes [id number] 500mg Take 1 U nivers ER 500 mg 5-31 tablet by ity o f 24 hr 00:00: mouth [place] tablet 00 daily with Medical breakfast. Branch STOP REGULAR METFORMIN. metformin 2021-0 Yes [id number] 500mg Take 1 U nivers ER 500 mg 5-31 tablet by ity o f 24 hr 00:00: mouth [place] tablet 00 daily with Medical breakfast. Branch STOP REGULAR METFORMIN. metformin 2021-0 Yes [id number] 500mg Take 1 U nivers ER 500 mg 5-31 tablet by ity o f 24 hr 00:00: mouth [place] tablet 00 daily with Medical breakfast. Branch STOP REGULAR METFORMIN. metformin 2021-0 Yes [id number] 500mg Take 1 U nivers ER 500 mg 5-31 tablet by ity o f 24 hr 00:00: mouth [place] tablet 00 daily with Medical breakfast. Branch STOP REGULAR METFORMIN. metformin 2021-0 Yes [id number] 500mg Take 1 U nivers ER 500 mg 5-31 tablet by ity o f 24 hr 00:00: mouth [place] tablet 00 daily with Medical breakfast. Branch STOP REGULAR METFORMIN. metformin 2021-0 Yes [id number] 500mg Take 1 U nivers ER 500 mg 5-31 tablet by ity o f 24 hr 00:00: mouth [place] tablet 00 daily with Medical breakfast. Branch STOP REGULAR METFORMIN. metformin 2021-0 Yes [id number] 500mg Take 1 U nivers ER 500 mg 5-31 tablet by ity o f 24 hr 00:00: mouth [place] tablet 00 daily with Medical breakfast. Branch STOP REGULAR METFORMIN. metformin 2021-0 Yes [id number] 500mg Take 1 U nivers ER 500 mg 5-31 tablet by ity o f 24 hr 00:00: mouth [place] tablet 00 daily with Medical breakfast. Branch STOP REGULAR METFORMIN. metformin 2021-0 Yes [id number] 500mg Take 1 U nivers ER 500 mg 5-31 tablet by ity o f 24 hr 00:00: mouth [place] tablet 00 daily with Medical breakfast. Branch STOP REGULAR METFORMIN. metformin 2021-0 Yes [id number] 500mg Take 1 U nivers ER 500 mg 5-31 tablet by ity o f 24 hr 00:00: mouth [place] tablet 00 daily with Medical breakfast. Branch STOP REGULAR METFORMIN. metformin 2021-0 Yes [id number] 500mg Take 1 U nivers ER 500 mg 5-31 tablet by ity o f 24 hr 00:00: mouth [place] tablet 00 daily with Medical breakfast. Branch STOP REGULAR METFORMIN. metformin 2021-0 Yes [id number] 500mg Take 1 U nivers ER 500 mg 5-31 tablet by ity o f 24 hr 00:00: mouth [place] tablet 00 daily with Medical breakfast. Branch STOP REGULAR METFORMIN. metformin 2021-0 Yes [id number] 500mg Take 1 U nivers ER 500 mg 5-31 tablet by ity o f 24 hr 00:00: mouth [place] tablet 00 daily with Medical breakfast. Branch STOP REGULAR METFORMIN. metformin 2021-0 Yes [id number] 500mg Take 1 U nivers ER 500 mg 5-31 tablet by ity o f 24 hr 00:00: mouth [place] tablet 00 daily with Medical breakfast. Branch STOP REGULAR METFORMIN. metformin 2021-0 Yes [id number] 500mg Take 1 U nivers ER 500 mg 5-31 tablet by ity o f 24 hr 00:00: mouth [place] tablet 00 daily with Medical breakfast. Branch STOP REGULAR METFORMIN. metformin 2021-0 Yes [id number] 500mg Take 1 U nivers ER 500 mg 5-31 tablet by ity o f 24 hr 00:00: mouth [place] tablet 00 daily with Medical breakfast. Branch STOP REGULAR METFORMIN. metformin 2021-0 Yes [id number] 500mg Take 1 U nivers ER 500 mg 5-31 tablet by ity o f 24 hr 00:00: mouth [place] tablet 00 daily with Medical breakfast. Branch STOP REGULAR METFORMIN. metformin 2021-0 Yes [id number] 500mg Take 1 U nivers ER 500 mg 5-31 tablet by ity o f 24 hr 00:00: mouth [place] tablet 00 daily with Medical breakfast. Branch STOP REGULAR METFORMIN. metformin 2021-0 Yes [id number] 500mg Take 1 U nivers ER 500 mg 5-31 tablet by ity o f 24 hr 00:00: mouth [place] tablet 00 daily with Medical breakfast. Branch STOP REGULAR METFORMIN. metformin 2021-0 Yes [id number] 500mg Take 1 U nivers ER 500 mg 5-31 tablet by ity o f 24 hr 00:00: mouth [place] tablet 00 daily with Medical breakfast. Branch STOP REGULAR METFORMIN. metformin 2021-0 Yes [id number] 500mg Take 1 U nivers ER 500 mg 5-31 tablet by ity o f 24 hr 00:00: mouth [place] tablet 00 daily with Medical breakfast. Branch STOP REGULAR METFORMIN. metformin 2021-0 Yes [id number] 500mg Take 1 U nivers ER 500 mg 5-31 tablet by ity o f 24 hr 00:00: mouth [place] tablet 00 daily with Medical breakfast. Branch STOP REGULAR METFORMIN. metformin 2021-0 Yes [id number] 500mg Take 1 U nivers ER 500 mg 5-31 tablet by ity o f 24 hr 00:00: mouth [place] tablet 00 daily with Medical breakfast. Branch STOP REGULAR METFORMIN. metformin 2021-0 Yes [id number] 500mg Take 1 U nivers ER 500 mg 5-31 tablet by ity o f 24 hr 00:00: mouth [place] tablet 00 daily with Medical breakfast. [place] STOP REGULAR METFORMIN. metformin 2021-0 Yes [id number] 500mg Take 1 U nivers ER 500 mg 5-31 tablet by ity o f 24 hr 00:00: mouth [place] tablet 00 daily with Medical breakfast. Branch STOP REGULAR METFORMIN. metformin 2021-0 Yes [id number] 500mg Take 1 U nivers ER 500 mg 5-31 tablet by ity o f 24 hr 00:00: mouth [place] tablet 00 daily with Medical breakfast. Branch STOP REGULAR METFORMIN. metformin 2021-0 Yes [id number] 500mg Take 1 U nivers ER 500 mg 5-31 tablet by ity o f 24 hr 00:00: mouth [place] tablet 00 daily with Medical breakfast. Branch STOP REGULAR METFORMIN. metformin 2022-0 Yes [id number] 500mg Take 1 U nivers ER 500 mg 5-31 tablet by ity o f 24 hr 00:00: mouth [place] tablet 00 daily with Medical breakfast. Branch STOP REGULAR METFORMIN. metformin 2021-0 Yes [id number] 500mg Take 1 U nivers ER 500 mg 5-31 tablet by ity o f 24 hr 00:00: mouth [place] tablet 00 daily with Medical breakfast. Branch STOP REGULAR METFORMIN. metformin 2021-0 Yes [id number] 500mg Take 1 U nivers ER 500 mg 5-31 tablet by ity o f 24 hr 00:00: mouth [place] tablet 00 daily with Medical breakfast. Branch STOP REGULAR METFORMIN. metformin 2021-0 Yes [id number] 500mg Take 1 U nivers ER 500 mg 5-31 tablet by ity o f 24 hr 00:00: mouth [place] tablet 00 daily with Medical breakfast. Branch STOP REGULAR METFORMIN. metformin 2021-0 Yes [id number] 500mg Take 1 U nivers ER 500 mg 5-31 tablet by ity o f 24 hr 00:00: mouth [place] tablet 00 daily with Medical breakfast. Branch STOP REGULAR METFORMIN. metformin 2021-0 Yes [id number] 500mg Take 1 U nivers ER 500 mg 5-31 tablet by ity o f 24 hr 00:00: mouth [place] tablet 00 daily with Medical breakfast. Branch STOP REGULAR METFORMIN. metformin 2021-0 Yes [id number] 500mg Take 1 U nivers ER 500 mg 5-31 tablet by ity o f 24 hr 00:00: mouth [place] tablet 00 daily with Medical breakfast. Branch STOP REGULAR METFORMIN. metformin 2021-0 2022- No [id number] 500mg Take 1 [facility] ER 500 mg 5-31 10-13 tablet by ity of 24 hr 00:00: 00:00 mouth [place] tablet 00 :00 daily with Medical breakfast. Branch STOP REGULAR METFORMIN. ibuprofen 2021-0 Yes [id number] 600mg Take 1 [facility] 600 mg 5-19 [id number] tablet by ity of tablet 00:00: mouth [place] 00 every 6 Medical (six) Branch hours as needed for Pain (scale 4-6). ibuprofen 2021-0 Yes [id number] 600mg Take 1 [facility] 600 mg 5-19 [id number] tablet by ity of tablet 00:00: mouth [place] 00 every 6 Medical (six) Branch hours as needed for Pain (scale 4-6). ibuprofen 2022-0 Yes [id number] 600mg Take 1 [facility] 600 mg 5-19 [id number] tablet by ity of tablet 00:00: mouth [place] 00 every 6 Medical (six) Branch hours as needed for Pain (scale 4-6). ibuprofen 2022-0 Yes [id number] 600mg Take 1 [facility] 600 mg 5-19 [id number] tablet by ity of tablet 00:00: mouth [place] 00 every 6 Medical (six) Branch hours as needed for Pain (scale 4-6). ibuprofen 2022-0 Yes [id number] 600mg Take 1 [facility] 600 mg 5-19 [id number] tablet by ity of tablet 00:00: mouth [place] 00 every 6 Medical (six) Branch hours as needed for Pain (scale 4-6). ibuprofen 2022-0 Yes [id number] 600mg Take 1 [facility] 600 mg 5-19 [id number] tablet by ity of tablet 00:00: mouth [place] 00 every 6 Medical (six) Branch hours as needed for Pain (scale 4-6). ibuprofen 2022-0 Yes [id number] 600mg Take 1 [facility] 600 mg 5-19 [id number] tablet by ity of tablet 00:00: mouth [place] 00 every 6 Medical (six) Branch hours as needed for Pain (scale 4-6). ibuprofen 2022-0 Yes [id number] 600mg Take 1 [facility] 600 mg 5-19 [id number] tablet by ity of tablet 00:00: mouth [place] 00 every 6 Medical (six) Branch hours as needed for Pain (scale 4-6). ibuprofen 2022-0 Yes [id number] 600mg Take 1 [facility] 600 mg 5-19 [id number] tablet by ity of tablet 00:00: mouth [place] 00 every 6 Medical (six) Branch hours as needed for Pain (scale 4-6). ibuprofen 2022-0 Yes [id number] 600mg Take 1 [facility] 600 mg 5-19 [id number] tablet by ity of tablet 00:00: mouth [place] 00 every 6 Medical (six) Branch hours as needed for Pain (scale 4-6). ibuprofen 2022-0 Yes [id number] 600mg Take 1 [facility] 600 mg 5-19 [id number] tablet by ity of tablet 00:00: mouth [place] 00 every 6 Medical (six) Branch hours as needed for Pain (scale 4-6). ibuprofen 2022-0 Yes [id number] 600mg Take 1 [facility] 600 mg 5-19 [id number] tablet by ity of tablet 00:00: mouth [place] 00 every 6 Medical (six) Branch hours as needed for Pain (scale 4-6). ibuprofen 2022-0 Yes [id number] 600mg Take 1 [facility] 600 mg 5-19 [id number] tablet by ity of tablet 00:00: mouth [place] 00 every 6 Medical (six) Branch hours as needed for Pain (scale 4-6). ibuprofen 2022-0 Yes [id number] 600mg Take 1 [facility] 600 mg 5-19 [id number] tablet by ity of tablet 00:00: mouth [place] 00 every 6 Medical (six) Branch hours as needed for Pain (scale 4-6). ibuprofen 2022-0 Yes [id number] 600mg Take 1 [facility] 600 mg 5-19 [id number] tablet by ity of tablet 00:00: mouth [place] 00 every 6 Medical (six) Branch hours as needed for Pain (scale 4-6). ibuprofen 2022-0 Yes [id number] 600mg Take 1 [facility] 600 mg 5-19 [id number] tablet by ity of tablet 00:00: mouth [place] 00 every 6 Medical (six) Branch hours as needed for Pain (scale 4-6). ibuprofen 2022-0 Yes [id number] 600mg Take 1 [facility] 600 mg 5-19 [id number] tablet by ity of tablet 00:00: mouth [place] 00 every 6 Medical (six) Branch hours as needed for Pain (scale 4-6). ibuprofen 2022-0 Yes [id number] 600mg Take 1 [facility] 600 mg 5-19 [id number] tablet by ity of tablet 00:00: mouth [place] 00 every 6 Medical (six) Branch hours as needed for Pain (scale 4-6). ibuprofen 2022-0 Yes [id number] 600mg Take 1 [facility] 600 mg 5-19 [id number] tablet by ity of tablet 00:00: mouth [place] 00 every 6 Medical (six) Branch hours as needed for Pain (scale 4-6). ibuprofen 2022-0 Yes [id number] 600mg Take 1 [facility] 600 mg 5-19 [id number] tablet by ity of tablet 00:00: mouth [place] 00 every 6 Medical (six) Branch hours as needed for Pain (scale 4-6). ibuprofen 2022-0 Yes [id number] 600mg Take 1 [facility] 600 mg 5-19 [id number] tablet by ity of tablet 00:00: mouth [place] 00 every 6 Medical (six) Branch hours as needed for Pain (scale 4-6). ibuprofen 2022-0 Yes [id number] 600mg Take 1 [facility] 600 mg 5-19 [id number] tablet by ity of tablet 00:00: mouth [place] 00 every 6 Medical (six) Branch hours as needed for Pain (scale 4-6). ibuprofen 2022-0 Yes [id number] 600mg Take 1 [facility] 600 mg 5-19 [id number] tablet by ity of tablet 00:00: mouth [place] 00 every 6 Medical (six) Branch hours as needed for Pain (scale 4-6). ibuprofen 2022-0 Yes [id number] 600mg Take 1 [facility] 600 mg 5-19 [id number] tablet by ity of tablet 00:00: mouth [place] 00 every 6 Medical (six) Branch hours as needed for Pain (scale 4-6). ibuprofen 2022-0 Yes [id number] 600mg Take 1 [facility] 600 mg 5-19 [id number] tablet by ity of tablet 00:00: mouth [place] 00 every 6 Medical (six) Branch hours as needed for Pain (scale 4-6). ibuprofen 2022-0 Yes [id number] 600mg Take 1 [facility] 600 mg 5-19 [id number] tablet by ity of tablet 00:00: mouth [place] 00 every 6 Medical (six) Branch hours as needed for Pain (scale 4-6). ibuprofen 2022-0 Yes [id number] 600mg Take 1 [facility] 600 mg 5-19 [id number] tablet by ity of tablet 00:00: mouth [place] 00 every 6 Medical (six) Branch hours as needed for Pain (scale 4-6). ibuprofen 2022-0 Yes [id number] 600mg Take 1 [facility] 600 mg 5-19 [id number] tablet by ity of tablet 00:00: mouth [place] 00 every 6 Medical (six) Branch hours as needed for Pain (scale 4-6). ibuprofen 2022-0 Yes [id number] 600mg Take 1 [facility] 600 mg 5-19 [id number] tablet by ity of tablet 00:00: mouth [place] 00 every 6 Medical (six) Branch hours as needed for Pain (scale 4-6). ibuprofen 2022-0 Yes [id number] 600mg Take 1 [facility] 600 mg 5-19 [id number] tablet by ity of tablet 00:00: mouth [place] 00 every 6 Medical (six) Branch hours as needed for Pain (scale 4-6). ibuprofen 2021-0 Yes [id number] 600mg Take 1 [facility] 600 mg 5-19 [id number] tablet by ity of tablet 00:00: mouth [place] 00 every 6 Medical (six) Branch hours as needed for Pain (scale 4-6). ibuprofen 2021-0 Yes [id number] 600mg Take 1 [facility] 600 mg 5-19 [id number] tablet by ity of tablet 00:00: mouth [place] 00 every 6 Medical (six) Branch hours as needed for Pain (scale 4-6). ibuprofen 2021-0 Yes [id number] 600mg Take 1 [facility] 600 mg 5-19 [id number] tablet by ity of tablet 00:00: mouth [place] 00 every 6 Medical (six) Branch hours as needed for Pain (scale 4-6). ibuprofen 2021-0 Yes [id number] 600mg Take 1 [facility] 600 mg 5-19 [id number] tablet by ity of tablet 00:00: mouth [place] 00 every 6 Medical (six) Branch hours as needed for Pain (scale 4-6). ibuprofen 2021-0 Yes [id number] 600mg Take 1 [facility] 600 mg 5-19 [id number] tablet by ity of tablet 00:00: mouth [place] 00 every 6 Medical (six) Branch hours as needed for Pain (scale 4-6). ibuprofen 2021-0 Yes [id number] 600mg Take 1 [facility] 600 mg 5-19 [id number] tablet by ity of tablet 00:00: mouth [place] 00 every 6 Medical (six) Branch hours as needed for Pain (scale 4-6). ibuprofen 2021-0 2022- No [id number] 600mg Take 1 [facility] 600 mg 5-19 - [id number] tablet by ity o f tablet 00:00: 00:00 mouth [place] 00 :00 every 6 Medical (six) Branch hours as needed for Pain (scale 4-6). ibuprofen 2021-0 2022- No [id number] 600mg Take 1 [facility] 600 mg 5-19 - [id number] tablet by ity o f tablet 00:00: 00:00 mouth [place] 00 :00 every 6 Medical (six) Branch hours as needed for Pain (scale 4-6). ibuprofen 2021-0 2022- No [id number] 600mg Take 1 [facility] 600 mg 5-19 - [id number] tablet by ity o f tablet 00:00: 00:00 mouth [place] 00 :00 every 6 Medical (six) Branch hours as needed for Pain (scale 4-6). topiramate 2022-0 Yes [id number] 50mg Take 2 [facility] 25 mg 5-16 tablets by ity of tablet 00:00: mouth (two) Medical times Branch daily. topiramate 2022-0 Yes [id number] 50mg Take 2 [facility] 25 mg 5-16 tablets by ity of tablet 00:00: mouth (two) Medical times Branch daily. topiramate 2022-0 Yes [id number] 50mg Take 2 [facility] 25 mg 5-16 tablets by ity of tablet 00:00: mouth (two) Medical times Branch daily. topiramate 2022-0 Yes [id number] 50mg Take 2 [facility] 25 mg 5-16 tablets by ity of tablet 00:00: mouth (two) Medical times Branch daily. topiramate 2022-0 Yes [id number] 50mg Take 2 [facility] 25 mg 5-16 tablets by ity of tablet 00:00: mouth (two) Medical times Branch daily. topiramate 2022-0 Yes [id number] 50mg Take 2 [facility] 25 mg 5-16 tablets by ity of tablet 00:00: mouth (two) Medical times Branch daily. topiramate 2022-0 Yes [id number] 50mg Take 2 [facility] 25 mg 5-16 tablets by ity of tablet 00:00: mouth (two) Medical times Branch daily. topiramate 2022-0 Yes [id number] 50mg Take 2 [facility] 25 mg 5-16 tablets by ity of tablet 00:00: mouth (two) Medical times Branch daily. topiramate 2022-0 Yes [id number] 50mg Take 2 [facility] 25 mg 5-16 tablets by ity of tablet 00:00: mouth (two) Medical times Branch daily. SUMAtriptan 2022-0 Yes [id number] 50mg Take 1 [facility] 50 mg 5-16 tablet by [facility] tablet 00:00: mouth as 00 needed for Medical Migraine. Branch topiramate 2022-0 Yes [id number] 50mg Take 2 [facility] 25 mg 5-16 tablets by [facility] tablet 00:00: mouth 2 (two) Medical times Branch daily. SUMAtriptan 2-0 Yes [id number] 50mg Take 1 [facility] 50 mg 5-16 tablet by [facility] tablet 00:00: mouth as [place] 00 needed for Medical Migraine. Branch topiramate 2-0 Yes [id number] 50mg Take 2 [facility] 25 mg 5-16 tablets by [facility] tablet 00:00: mouth 2 (two) Medical times Branch daily. SUMAtriptan 2-0 Yes [id number] 50mg Take 1 [facility] 50 mg 5-16 tablet by [facility] tablet 00:00: mouth as [place] 00 needed for Medical Migraine. Branch topiramate 2-0 Yes [id number] 50mg Take 2 [facility] 25 mg 5-16 tablets by [facility] tablet 00:00: mouth 2 (two) Medical times Branch daily. SUMAtriptan 2-0 Yes [id number] 50mg Take 1 [facility] 50 mg 5-16 tablet by [facility] tablet 00:00: mouth as 00 needed for Medical Migraine. Branch topiramate 2-0 Yes [id number] 50mg Take 2 [facility] 25 mg 5-16 tablets by [facility] tablet 00:00: mouth 2 (two) Medical times Branch daily. SUMAtriptan 2-0 Yes [id number] 50mg Take 1 [facility] 50 mg 5-16 tablet by [facility] tablet 00:00: mouth as [place] 00 needed for Medical Migraine. Branch topiramate 2-0 Yes [id number] 50mg Take 2 [facility] 25 mg 5-16 tablets by [facility] tablet 00:00: mouth 2 (two) Medical times Branch daily. SUMAtriptan 2-0 Yes [id number] 50mg Take 1 [facility] 50 mg 5-16 tablet by [facility] tablet 00:00: mouth as [place] 00 needed for Medical Migraine. Branch topiramate 2022-0 Yes [id number] 50mg Take 2 [facility] 25 mg 5-16 tablets by [facility] tablet 00:00: mouth 2 (two) Medical times Branch daily. topiramate 2022-0 Yes [id number] 50mg Take 2 [facility] 25 mg 5-16 tablets by [facility] tablet 00:00: mouth 2 (two) Medical times Branch daily. topiramate 2022-0 Yes [id number] 50mg Take 2 [facility] 25 mg 5-16 tablets by [facility] tablet 00:00: mouth 2 [place] 00 (two) Medical times Branch daily. topiramate 2021-0 Yes [id number] 50mg Take 2 [facility] 25 mg 5-16 tablets by [facility] tablet 00:00: mouth 2 [place] 00 (two) Medical times Branch daily. topiramate 2021-0 Yes [id number] 50mg Take 2 [facility] 25 mg 5-16 tablets by [facility] tablet 00:00: mouth 2 [place] 00 (two) Medical times Branch daily. topiramate 2021-0 Yes [id number] 50mg Take 2 [facility] 25 mg 5-16 tablets by [facility] tablet 00:00: mouth 2 [place] 00 (two) Medical times Branch daily. topiramate 2021-0 2021- No [id number] 50mg Take 2 [facility] 25 mg 5-16 09-01 tablets by [facility] tablet 00:00: 00:00 mouth 2 [place] 00 :00 (two) Medical times Branch daily. SUMAtriptan 2021-0 2021- No [id number] 50mg Take 1 [facility] 50 mg 5-16 06-17 tablet by [facility] tablet 00:00: 00:00 mouth as [place] 00 :00 needed for Medical Migraine. Branch ALCOHOL Yes 1{dose} Apply 1 [facility] ers PADS PadM 5-08 Dose to [facility] of 00:00: area(s) [place] 00 before Medical meals. Branch ALCOHOL Yes 1{dose} Apply 1 [facility] ers PADS PadM 5-08 Dose to [facility] of 00:00: area(s) [place] 00 before Medical meals. Branch ALCOHOL 0 Yes 1{dose} Apply 1 [facility] ers PADS PadM 5-08 Dose to [facility] of 00:00: area(s) [place] 00 before Medical meals. Branch ALCOHOL 2021-0 Yes 1{dose} Apply 1 [facility] ers PADS PadM 5-08 Dose to [facility] of 00:00: area(s) [place] 00 before Medical meals. Branch ALCOHOL 0 Yes 1{dose} Apply 1 [facility] ers PADS PadM 5-08 Dose to [facility] of 00:00: area(s) [place] 00 before Medical meals. Branch ALCOHOL Yes [...] 5-08 Dose to [facility] of 00:00: [facility](s) [place] 00 before Medical meals. [...] 5-08 Dose to [facility] of 00:00: [facility](s) [place] 00 before Medical meals. [...] 5-08 Dose to [facility] of 00:00: [facility](s) [place] 00 before Medical meals. Branch ALCOHOL 2021-0 Yes 1{dose} Apply 1 [facility] ers PADS PadM 5-08 Dose to [facility]y of 00:00: area(s) [place] 00 before Medical meals. Branch ALCOHOL 2021-0 Yes 1{dose} Apply 1 [facility] ers PADS PadM 5-08 Dose to [facility] of 00:00: [facility] [place] 00 before Medical meals. Branch ALCOHOL Yes 1{dose} Apply 1 [facility] ers PADS PadM 5-08 Dose to [facility] of 00:00: [facility] [place] 00 before Medical meals. Branch ALCOHOL Yes 1{dose} Apply 1 [facility] ers PADS PadM 5-08 Dose to [facility] of 00:00: [facility] [place] 00 before Medical meals. Branch ALCOHOL Yes 1{dose} Apply 1 [facility] ers PADS PadM 5-08 Dose to [facility] of 00:00: [facility] [place] 00 before Medical meals. Branch ALCOHOL Yes 1{dose} Apply 1 [facility] ers PADS PadM 5-08 Dose to [facility] of 00:00: [facility] [place] 00 before Medical meals. Branch ALCOHOL Yes 1{dose} Apply 1 [facility] ers PADS PadM 5-08 Dose to [facility] of 00:00: [facility] [place] 00 before Medical meals. Branch ALCOHOL 2021- No 1{dose} Apply 1 [facility] vers PADS PadM 5-08 -22 Dose to [facility]y of 00:00: 00:00 [facility] [place] 00 :00 before Medical meals. Branch ALCOHOL 2021- No 1{dose} Apply 1 [facility] vers PADS PadM 5-08 -22 Dose to [facility] of 00:00: 00:00 [facility] [place] 00 :00 before Medical meals. Branch ALCOHOL 2021- No 1{dose} Apply 1 [facility] vers PADS PadM 5-08 -22 Dose to [facility] of 00:00: 00:00 [facility] [place] 00 :00 before Medical meals. [place] pregabalin Yes [id number] 150mg Take 1 [facility] 150 mg 4-29 capsule by [facility] of capsule 00:00: mouth 3 (three) Medical times [place] daily. busPIRone Yes [id number] 20mg Take 2 [facility] [place] 10 mg 4-29 tablets by [facility] of tablet 00:00: mouth 2 (two) Medical times [place] daily. citalopram Yes [id number] 40mg Take 1 [facility] 40 mg 4-29 tablet by [facility] of tablet 00:00: mouth [place] 00 daily. Medical Branch pregabalin 2021-0 Yes [id number] 150mg Take 1 [facility] 150 mg 4-29 capsule by [facility] of capsule 00:00: mouth (three) Medical times Branch daily. busPIRone 2021-0 Yes [id number] 20mg Take 2 [facility] [place] 10 mg 4-29 tablets by [facility] of tablet 00:00: mouth (two) Medical times Branch daily. citalopram 2021-0 Yes [id number] 40mg Take 1 [facility] 40 mg 4-29 tablet by [facility] tablet 00:00: mouth 00 daily. Medical Branch pregabalin 2021-0 Yes [id number] 150mg Take 1 [facility] 150 mg 4-29 capsule by [facility] of capsule 00:00: mouth (three) Medical times Branch daily. busPIRone 2021-0 Yes [id number] 20mg Take 2 [facility] [place] 10 mg 4-29 tablets by [facility] of tablet 00:00: mouth (two) Medical times Branch daily. citalopram 2021-0 Yes [id number] 40mg Take 1 [facility] 40 mg 4-29 tablet by [facility] of tablet 00:00: mouth daily. Medical Branch pregabalin 2021-0 Yes [id number] 150mg Take 1 [facility] 150 mg 4-29 capsule by [facility] of capsule 00:00: mouth (three) Medical times Branch daily. busPIRone 2021-0 Yes [id number] 20mg Take 2 [facility] [place] 10 mg 4-29 tablets by [facility] of tablet 00:00: mouth (two) Medical times Branch daily. citalopram 2021-0 Yes [id number] 40mg Take 1 [facility] 40 mg 4-29 tablet by [facility] of tablet 00:00: mouth daily. Medical Branch pregabalin 2021-0 Yes [id number] 150mg Take 1 [facility] 150 mg 4-29 capsule by [facility] of capsule 00:00: mouth (three) Medical times Branch daily. busPIRone 2021-0 Yes [id number] 20mg Take 2 [facility] [place] 10 mg 4-29 tablets by [facility] of tablet 00:00: mouth (two) Medical times Branch daily. citalopram 2021-0 Yes [id number] 40mg Take 1 [facility] 40 mg 4-29 tablet by [facility] of tablet 00:00: mouth 00 daily. Medical Branch pregabalin 2021-0 Yes [id number] 150mg Take 1 [facility] 150 mg 4-29 capsule by [facility] of capsule 00:00: mouth 3 (three) Medical times Branch daily. busPIRone 2021-0 Yes [id number] 20mg Take 2 [facility] [place] 10 mg 4-29 tablets by [facility] of tablet 00:00: mouth 2 (two) Medical times Branch daily. citalopram 2021-0 Yes [id number] 40mg Take 1 [facility] 40 mg 4-29 tablet by [facility] of tablet 00:00: mouth 00 daily. Medical Branch pregabalin 2021-0 Yes [id number] 150mg Take 1 [facility] 150 mg 4-29 capsule by [facility] of capsule 00:00: mouth 3 (three) Medical times Branch daily. busPIRone 2021-0 Yes [id number] 20mg Take 2 [facility] [place] 10 mg 4-29 tablets by [facility] of tablet 00:00: mouth (two) Medical times Branch daily. citalopram 2021-0 Yes [id number] 40mg Take 1 [facility] 40 mg 4-29 tablet by [facility] of tablet 00:00: mouth 00 daily. Medical Branch pregabalin 2021-0 Yes [id number] 150mg Take 1 [facility] 150 mg 4-29 capsule by [facility] of capsule 00:00: mouth 3 (three) Medical times Branch daily. busPIRone 2021-0 Yes [id number] 20mg Take 2 [facility] [place] 10 mg 4-29 tablets by [facility] of tablet 00:00: mouth (two) Medical times Branch daily. citalopram 2021-0 Yes [id number] 40mg Take 1 [facility] 40 mg 4-29 tablet by [facility] of tablet 00:00: mouth 00 daily. Medical Branch pregabalin 2021-0 Yes [id number] 150mg Take 1 [facility] 150 mg 4-29 capsule by [facility] of capsule 00:00: mouth 3 (three) Medical times Branch daily. busPIRone 2021-0 Yes [id number] 20mg Take 2 [facility] [place] 10 mg 4-29 tablets by [facility] of tablet 00:00: mouth (two) Medical times Branch daily. citalopram 2021-0 Yes [id number] 40mg Take 1 [facility] 40 mg 4-29 tablet by [facility] of tablet 00:00: mouth daily. Medical Branch pregabalin 2021-0 Yes [id number] 150mg Take 1 [facility] 150 mg 4-29 capsule by [facility] of capsule 00:00: mouth (three) Medical times Branch daily. busPIRone 2021-0 Yes [id number] 20mg Take 2 [facility] [place] 10 mg 4-29 tablets by [facility] of tablet 00:00: mouth (two) Medical times Branch daily. citalopram 2021-0 Yes [id number] 40mg Take 1 [facility] 40 mg 4-29 tablet by [facility] of tablet 00:00: mouth daily. Medical Branch pregabalin 2021-0 Yes [id number] 150mg Take 1 [facility] 150 mg 4-29 capsule by [facility] of capsule 00:00: mouth (three) Medical times Branch daily. busPIRone 2021-0 Yes [id number] 20mg Take 2 [facility] [place] 10 mg 4-29 tablets by [facility] of tablet 00:00: mouth (two) Medical times Branch daily. citalopram 2021-0 Yes [id number] 40mg Take 1 [facility] 40 mg 4-29 tablet by [facility] of tablet 00:00: mouth daily. Medical Branch pregabalin 2021-0 Yes [id number] 150mg Take 1 [facility] 150 mg 4-29 capsule by [facility] of capsule 00:00: mouth (three) Medical times Branch daily. busPIRone 2021-0 Yes [id number] 20mg Take 2 [facility] [place] 10 mg 4-29 tablets by [facility] of tablet 00:00: mouth (two) Medical times Branch daily. citalopram 2021-0 Yes [id number] 40mg Take 1 [facility] 40 mg 4-29 tablet by [facility] of tablet 00:00: mouth 00 daily. Medical Branch pregabalin 2021-0 Yes [id number] 150mg Take 1 [facility] 150 mg 4-29 capsule by [facility] of capsule 00:00: mouth 3 (three) Medical times Branch daily. busPIRone 2022-0 Yes [id number] 20mg Take 2 [facility] [place] 10 mg 4-29 tablets by [facility] of tablet 00:00: mouth (two) Medical times Branch daily. citalopram 2021-0 Yes [id number] 40mg Take 1 [facility] 40 mg 4-29 tablet by [facility] of tablet 00:00: mouth daily. Medical Branch pregabalin 2021-0 Yes [id number] 150mg Take 1 [facility] 150 mg 4-29 capsule by [facility] of capsule 00:00: mouth 3 (three) Medical times Branch daily. busPIRone 2021-0 Yes [id number] 20mg Take 2 [facility] [place] 10 mg 4-29 tablets by [facility] of tablet 00:00: mouth (two) Medical times Branch daily. citalopram 2021-0 Yes [id number] 40mg Take 1 [facility] 40 mg 4-29 tablet by [facility] of tablet 00:00: mouth daily. Medical Branch pregabalin 2021-0 Yes [id number] 150mg Take 1 [facility] 150 mg 4-29 capsule by [facility] of capsule 00:00: mouth (three) Medical times Branch daily. busPIRone 2021-0 Yes [id number] 20mg Take 2 [facility] [place] 10 mg 4-29 tablets by [facility] of tablet 00:00: mouth (two) Medical times Branch daily. citalopram 2021-0 Yes [id number] 40mg Take 1 [facility] 40 mg 4-29 tablet by [facility] of tablet 00:00: mouth daily. Medical Branch pregabalin 2021-0 Yes [id number] 150mg Take 1 [facility] 150 mg 4-29 capsule by [facility] of capsule 00:00: mouth (three) Medical times Branch daily. busPIRone 2-0 Yes [id number] 20mg Take 2 [facility] [place] 10 mg 4-29 tablets by [facility] of tablet 00:00: mouth (two) Medical times Branch daily. citalopram 2-0 Yes [id number] 40mg Take 1 [facility] 40 mg 4-29 tablet by [facility] of tablet 00:00: mouth 00 daily. Medical Branch pregabalin 2021-0 Yes [id number] 150mg Take 1 [facility] 150 mg 4-29 capsule by [facility] of capsule 00:00: mouth (three) Medical times Branch daily. busPIRone 2021-0 Yes [id number] 20mg Take 2 [facility] [place] 10 mg 4-29 tablets by [facility] of tablet 00:00: mouth (two) Medical times Branch daily. citalopram 2021-0 Yes [id number] 40mg Take 1 [facility] 40 mg 4-29 tablet by [facility] of tablet 00:00: mouth daily. Medical Branch pregabalin 2021-0 Yes [id number] 150mg Take 1 [facility] 150 mg 4-29 capsule by [facility] of capsule 00:00: mouth (three) Medical times Branch daily. busPIRone 2021-0 Yes [id number] 20mg Take 2 [facility] [place] 10 mg 4-29 tablets by [facility] of tablet 00:00: mouth (two) Medical times Branch daily. citalopram 2021-0 Yes [id number] 40mg Take 1 [facility] 40 mg 4-29 tablet by [facility] of tablet 00:00: mouth daily. Medical Branch pregabalin 2021-0 Yes [id number] 150mg Take 1 [facility] 150 mg 4-29 capsule by [facility] of capsule 00:00: mouth (three) Medical times Branch daily. busPIRone 2021-0 Yes [id number] 20mg Take 2 [facility] [place] 10 mg 4-29 tablets by [facility] of tablet 00:00: mouth (two) Medical times Branch daily. citalopram 2021-0 Yes [id number] 40mg Take 1 [facility] 40 mg 4-29 tablet by [facility] of tablet 00:00: mouth daily. Medical Branch pregabalin 2021-0 Yes [id number] 150mg Take 1 [facility] 150 mg 4-29 capsule by [facility] of capsule 00:00: mouth (three) Medical times Branch daily. busPIRone 2021-0 Yes [id number] 20mg Take 2 [facility] [place] 10 mg 4-29 tablets by [facility] of tablet 00:00: mouth (two) Medical times Branch daily. citalopram 2022-0 Yes [id number] 40mg Take 1 [facility] 40 mg 4-29 tablet by [facility] of tablet 00:00: mouth 00 daily. Medical Branch pregabalin 2021-0 Yes [id number] 150mg Take 1 [facility] 150 mg 4-29 capsule by [facility] of capsule 00:00: mouth 3 (three) Medical times Branch daily. busPIRone 2021-0 Yes [id number] 20mg Take 2 [facility] [place] 10 mg 4-29 tablets by [facility] of tablet 00:00: mouth (two) Medical times Branch daily. citalopram 2021-0 Yes [id number] 40mg Take 1 [facility] 40 mg 4-29 tablet by [facility] of tablet 00:00: mouth 00 daily. Medical Branch pregabalin 2021-0 Yes [id number] 150mg Take 1 [facility] 150 mg 4-29 capsule by [facility] of capsule 00:00: mouth 3 (three) Medical times Branch daily. busPIRone 2021-0 Yes [id number] 20mg Take 2 [facility] [place] 10 mg 4-29 tablets by [facility] of tablet 00:00: mouth (two) Medical times Branch daily. citalopram 2021-0 Yes [id number] 40mg Take 1 [facility] 40 mg 4-29 tablet by [facility] of tablet 00:00: mouth 00 daily. Medical Branch pregabalin 2021-0 Yes [id number] 150mg Take 1 [facility] 150 mg 4-29 capsule by [facility] of capsule 00:00: mouth (three) Medical times Branch daily. busPIRone 2021-0 Yes [id number] 20mg Take 2 [facility] [place] 10 mg 4-29 tablets by [facility] of tablet 00:00: mouth (two) Medical times Branch daily. citalopram 2021-0 Yes [id number] 40mg Take 1 [facility] 40 mg 4-29 tablet by [facility] of tablet 00:00: mouth 00 daily. Medical Branch pregabalin 2021-0 Yes [id number] 150mg Take 1 [facility] 150 mg 4-29 capsule by [facility] of capsule 00:00: mouth 3 (three) Medical times Branch daily. busPIRone 2021-0 Yes [id number] 20mg Take 2 [facility] [place] 10 mg 4-29 tablets by [facility] of tablet 00:00: mouth (two) Medical times Branch daily. citalopram 2021-0 Yes [id number] 40mg Take 1 [facility] 40 mg 4-29 tablet by [facility] of tablet 00:00: mouth daily. Medical Branch pregabalin 2021-0 Yes [id number] 150mg Take 1 [facility] 150 mg 4-29 capsule by [facility] of capsule 00:00: mouth (three) Medical times Branch daily. busPIRone 2021-0 Yes [id number] 20mg Take 2 [facility] [place] 10 mg 4-29 tablets by [facility] of tablet 00:00: mouth (two) Medical times Branch daily. citalopram 2021-0 Yes [id number] 40mg Take 1 [facility] 40 mg 4-29 tablet by [facility] of tablet 00:00: mouth daily. Medical Branch pregabalin 2021-0 Yes [id number] 150mg Take 1 [facility] 150 mg 4-29 capsule by [facility] of capsule 00:00: mouth (three) Medical times Branch daily. busPIRone 2021-0 Yes [id number] 20mg Take 2 [facility] [place] 10 mg 4-29 tablets by [facility] of tablet 00:00: mouth (two) Medical times Branch daily. citalopram 2021-0 Yes [id number] 40mg Take 1 [facility] 40 mg 4-29 tablet by [facility] of tablet 00:00: mouth daily. Medical Branch pregabalin 2021-0 Yes [id number] 150mg Take 1 [facility] 150 mg 4-29 capsule by [facility] of capsule 00:00: mouth (three) Medical times Branch daily. busPIRone 2021-0 Yes [id number] 20mg Take 2 [facility] [place] 10 mg 4-29 tablets by [facility] of tablet 00:00: mouth (two) Medical times Branch daily. citalopram 2021-0 Yes [id number] 40mg Take 1 [facility] 40 mg 4-29 tablet by [facility] of tablet 00:00: mouth 00 daily. Medical Branch pregabalin 2021-0 Yes [id number] 150mg Take 1 [facility] 150 mg 4-29 capsule by [facility] of capsule 00:00: mouth (three) Medical times Branch daily. busPIRone 2022-0 Yes [id number] 20mg Take 2 [facility] [place] 10 mg 4-29 tablets by [facility] of tablet 00:00: mouth (two) Medical times Branch daily. citalopram 2021-0 Yes [id number] 40mg Take 1 [facility] 40 mg 4-29 tablet by [facility] of tablet 00:00: mouth daily. Medical Branch pregabalin 2021-0 Yes [id number] 150mg Take 1 [facility] 150 mg 4-29 capsule by [facility] of capsule 00:00: mouth 3 (three) Medical times Branch daily. busPIRone 2021-0 Yes [id number] 20mg Take 2 [facility] [place] 10 mg 4-29 tablets by [facility] of tablet 00:00: mouth (two) Medical times Branch daily. citalopram 2021-0 Yes [id number] 40mg Take 1 [facility] 40 mg 4-29 tablet by [facility] of tablet 00:00: mouth daily. Medical [facility] pregabalin 2021-0 Yes [id number] 150mg Take 1 [facility] 150 mg 4-29 capsule by [facility] of capsule 00:00: mouth (three) Medical times Branch daily. busPIRone 2021-0 Yes [id number] 20mg Take 2 [facility] [place] 10 mg 4-29 tablets by [facility] of tablet 00:00: mouth (two) Medical times Branch daily. citalopram 2021-0 Yes [id number] 40mg Take 1 [facility] 40 mg 4-29 tablet by [facility] of tablet 00:00: mouth daily. Medical [facility] pregabalin 2021-0 Yes [id number] 150mg Take 1 [facility] 150 mg 4-29 capsule by [facility] of capsule 00:00: mouth (three) Medical times Branch daily. busPIRone 2-0 Yes [id number] 20mg Take 2 [facility] [place] 10 mg 4-29 tablets by [facility] of tablet 00:00: mouth (two) Medical times Branch daily. citalopram 2-0 Yes [id number] 40mg Take 1 [facility] 40 mg 4-29 tablet by [facility] of tablet 00:00: mouth daily. Medical [facility] pregabalin 2021-0 Yes [id number] 150mg Take 1 [facility] 150 mg 4-29 capsule by [facility] of capsule 00:00: mouth 3 (three) Medical times Branch daily. busPIRone 2021-0 Yes [id number] 20mg Take 2 [facility] [place] 10 mg 4-29 tablets by [facility] of tablet 00:00: mouth (two) Medical times Branch daily. citalopram 2021-0 Yes [id number] 40mg Take 1 [facility] 40 mg 4-29 tablet by [facility] of tablet 00:00: mouth 00 daily. [facility] pregabalin 2021-0 Yes [id number] 150mg Take 1 [facility] 150 mg 4-29 capsule by [facility] of capsule 00:00: mouth (three) Medical times [facility] daily. busPIRone 2021-0 Yes [id number] 20mg Take 2 [facility] [place] 10 mg 4-29 tablets by [facility] of tablet 00:00: mouth (two) Medical times [facility] daily. citalopram 2021-0 Yes [id number] 40mg Take 1 [facility] 40 mg 4-29 tablet by [facility] of tablet 00:00: mouth daily. [facility] pregabalin 2021-0 Yes [id number] 150mg Take 1 [facility] 150 mg 4-29 capsule by [facility] of capsule 00:00: mouth (three) Medical times [facility] daily. busPIRone 2021-0 Yes [id number] 20mg Take 2 [facility] [place] 10 mg 4-29 tablets by [facility] of tablet 00:00: mouth (two) Medical times [facility] daily. citalopram 2021-0 Yes [id number] 40mg Take 1 [facility] 40 mg 4-29 tablet by [facility] of tablet 00:00: mouth daily. [facility] pregabalin 2021-0 Yes [id number] 150mg Take 1 [facility] 150 mg 4-29 capsule by [facility] of capsule 00:00: mouth 3 (three) Medical times [facility] daily. busPIRone 2021-0 Yes [id number] 20mg Take 2 [facility] [place] 10 mg 4-29 tablets by [facility] of tablet 00:00: mouth (two) Medical times [facility] daily. citalopram 2021-0 Yes [id number] 40mg Take 1 [facility] 40 mg 4-29 tablet by [facility] of tablet 00:00: mouth [place] 00 daily. Medical Branch pregabalin 2021-0 Yes [id number] 150mg Take 1 [facility] 150 mg 4-29 capsule by [facility] of capsule 00:00: mouth 3 [place] 00 (three) Medical times Branch daily. busPIRone 2021-0 Yes [id number] 20mg Take 2 [facility] [place] 10 mg 4-29 tablets by [facility] of tablet 00:00: mouth 2 00 (two) Medical times Branch daily. citalopram 0 Yes [id number] 40mg Take 1 [facility] 40 mg 4-29 tablet by [facility] of tablet 00:00: mouth [place] 00 daily. Medical [facility] pregabalin 0 Yes [id number] 150mg Take 1 [facility] 150 mg 4-29 capsule by [facility] of capsule 00:00: mouth 3 00 (three) Medical times Branch daily. busPIRone 0 Yes [id number] 20mg Take 2 [facility] [place] 10 mg 4-29 tablets by [facility] of tablet 00:00: mouth 2 00 (two) Medical times Branch daily. citalopram 0 Yes [id number] 40mg Take 1 [facility] 40 mg 4-29 tablet by [facility] of tablet 00:00: mouth [place] 00 daily. [facility] Branch citalopram 0 Yes [id number] 40mg Take 1 [facility] 40 mg 4-29 tablet by [facility] of tablet 00:00: mouth [place] 00 daily. [facility] Branch citalopram 0 Yes [id number] 40mg Take 1 [facility] 40 mg 4-29 tablet by [facility] of tablet 00:00: mouth [place] 00 daily. [facility] Branch citalopram 0 Yes [id number] 40mg Take 1 [facility] 40 mg 4-29 tablet by [facility] of tablet 00:00: mouth [place] 00 daily. [facility] Branch citalopram 2021-0 Yes [id number] 40mg Take 1 [facility] 40 mg 4-29 tablet by [facility] of tablet 00:00: mouth [place] 00 daily. [facility] citalopram 2021-0 Yes [id number] 40mg Take 1 [facility] 40 mg 4-29 tablet by [facility] of tablet 00:00: mouth [place] 00 daily. [facility] citalopram 2021-0 Yes [id number] 40mg Take 1 [facility] 40 mg 4-29 tablet by [facility] of tablet 00:00: mouth [place] 00 daily. [facility] citalopram 2021-0 Yes [id number] 40mg Take 1 [facility] 40 mg 4-29 tablet by [facility] of tablet 00:00: mouth [place] 00 daily. [facility] citalopram 2021-0 Yes [id number] 40mg Take 1 [facility] 40 mg 4-29 tablet by [facility] of tablet 00:00: mouth [place] 00 daily. [facility] citalopram 2021-0 Yes [id number] 40mg Take 1 [facility] 40 mg 4-29 tablet by [facility] of tablet 00:00: mouth [place] 00 daily. [facility] citalopram 0 Yes [id number] 40mg Take 1 [facility] 40 mg 4-29 tablet by [facility] of tablet 00:00: mouth [place] 00 daily. [facility] citalopram 0 Yes [id number] 40mg Take 1 [facility] 40 mg 4-29 tablet by [facility] of tablet 00:00: mouth [place] 00 daily. [facility] citalopram 0 Yes [id number] 40mg Take 1 [facility] 40 mg 4-29 tablet by [facility] of tablet 00:00: mouth [place] 00 daily. [facility] citalopram 0 Yes [id number] 40mg Take 1 [facility] 40 mg 4-29 tablet by [facility] of tablet 00:00: mouth [place] 00 daily. [facility] citalopram 2021-0 Yes [id number] 40mg Take 1 [facility] 40 mg 4-29 tablet by [facility] of tablet 00:00: mouth [place] 00 daily. [facility] citalopram 2021-0 Yes [id number] 40mg Take 1 [facility] 40 mg 4-29 tablet by [facility] of tablet 00:00: mouth [place] 00 daily. [facility] citalopram 2021-0 Yes [id number] 40mg Take 1 [facility] 40 mg 4-29 tablet by [facility] of tablet 00:00: mouth [place] 00 daily. [facility] citalopram 2021-0 Yes [id number] 40mg Take 1 [facility] 40 mg 4-29 tablet by [facility] of tablet 00:00: mouth [place] 00 daily. [facility] citalopram 0 Yes [id number] 40mg Take 1 [facility] 40 mg 4-29 tablet by [facility] of tablet 00:00: mouth [place] 00 daily. [facility] citalopram 0 Yes [id number] 40mg Take 1 [facility] 40 mg 4-29 tablet by [facility] of tablet 00:00: mouth [place] 00 daily. [facility] citalopram 2021-0 Yes [id number] 40mg Take 1 [facility] 40 mg 4-29 tablet by [facility] of tablet 00:00: mouth [place] 00 daily. [facility] citalopram 0 Yes [id number] 40mg Take 1 [facility] 40 mg 4-29 tablet by [facility] of tablet 00:00: mouth [place] 00 daily. [facility] citalopram 0 Yes [id number] 40mg Take 1 [facility] 40 mg 4-29 tablet by [facility] of tablet 00:00: mouth [place] 00 daily. [facility] citalopram 0 Yes [id number] 40mg Take 1 [facility] 40 mg 4-29 tablet by [facility] of tablet 00:00: mouth [place] 00 daily. [facility] citalopram 0 Yes [id number] 40mg Take 1 [facility] 40 mg 4-29 tablet by [facility] of tablet 00:00: mouth [place] 00 daily. [facility] citalopram 0 Yes [id number] 40mg Take 1 [facility] 40 mg 4-29 tablet by [facility] of tablet 00:00: mouth [place] 00 daily. [facility] citalopram 0 Yes [id number] 40mg Take 1 [facility] 40 mg 4-29 tablet by [facility] of tablet 00:00: mouth [place] 00 daily. [facility] citalopram 0 Yes [id number] 40mg Take 1 [facility] 40 mg 4-29 tablet by [facility] of tablet 00:00: mouth [place] 00 daily. [facility] citalopram 0 Yes [id number] 40mg Take 1 [facility] 40 mg 4-29 tablet by [facility] of tablet 00:00: mouth [place] 00 daily. [facility] citalopram 2021-0 Yes [id number] 40mg Take 1 [facility] 40 mg 4-29 tablet by [facility] of tablet 00:00: mouth [place] 00 daily. [facility] citalopram 0 Yes [id number] 40mg Take 1 [facility] 40 mg 4-29 tablet by [facility] of tablet 00:00: mouth [place] 00 daily. [facility] citalopram 0 Yes [id number] 40mg Take 1 [facility] 40 mg 4-29 tablet by [facility] of tablet 00:00: mouth [place] 00 daily. [facility] citalopram 0 Yes [id number] 40mg Take 1 [facility] n[facility] 40 mg 4-29 tablet by [facility] tablet 00:00: mouth [place] 00 daily. [facility] citalopram 0 Yes [id number] 40mg Take 1 [facility] 40 mg 4-29 tablet by [facility] tablet 00:00: mouth [place] 00 daily. [facility] citalopram 0 Yes [id number] 40mg Take 1 [facility] 40 mg 4-29 tablet by [facility] tablet 00:00: mouth [place] 00 daily. [facility] citalopram 0 Yes [id number] 40mg Take 1 [facility] 40 mg 4-29 tablet by [facility] tablet 00:00: mouth [place] 00 daily. [facility] citalopram 0 Yes [id number] 40mg Take 1 [facility] 40 mg 4-29 tablet by [facility] tablet 00:00: mouth [place] 00 daily. [facility] citalopram 0 Yes [id number] 40mg Take 1 [facility] 40 mg 4-29 tablet by [facility] tablet 00:00: mouth [place] 00 daily. [facility] citalopram 0 Yes [id number] 40mg Take 1 [facility] 40 mg 4-29 tablet by [facility] tablet 00:00: mouth [place] 00 daily. [facility] citalopram 0 Yes [id number] 40mg Take 1 [facility] 40 mg 4-29 tablet by [facility] tablet 00:00: mouth [place] 00 daily. [facility] citalopram 0 Yes [id number] 40mg Take 1 [facility] 40 mg 4-29 tablet by [facility] tablet 00:00: mouth [place] 00 daily. [facility] citalopram 0 Yes [id number] 40mg Take 1 [facility] 40 mg 4-29 tablet by [facility] tablet 00:00: mouth 00 daily. [facility] citalopram 2021-0 Yes [id number] 40mg Take 1 [facility] 40 mg 4-29 tablet by [facility] tablet 00:00: mouth 00 daily. [facility] citalopram 2021-0 Yes [id number] 40mg Take 1 [facility] 40 mg 4-29 tablet by [facility] tablet 00:00: mouth 00 daily. [facility] citalopram 2021-0 Yes [id number] 40mg Take 1 [facility] 40 mg 4-29 tablet by [facility] tablet 00:00: mouth 00 daily. [facility] pregabalin 2021-0 Yes [id number] 150mg Take 1 [facility] 150 mg 4-29 capsule by [facility] capsule 00:00: mouth 3 (three) Medical times [facility] daily. busPIRone 2021-0 Yes [id number] 20mg Take 2 [facility] [place] 10 mg 4-29 tablets by [facility] tablet 00:00: mouth (two) Medical times [facility] daily. citalopram 2021-0 Yes [id number] 40mg Take 1 [facility] 40 mg 4-29 tablet by [facility] tablet 00:00: mouth 00 daily. [facility] pregabalin 2021-0 Yes [id number] 150mg Take 1 [facility] 150 mg 4-29 capsule by [facility] capsule 00:00: mouth (three) Medical times [facility] daily. busPIRone 2021-0 Yes [id number] 20mg Take 2 [facility] [place] 10 mg 4-29 tablets by [facility] tablet 00:00: mouth (two) [facility] times [facility] daily. citalopram 2021-0 Yes [id number] 40mg Take 1 [facility] 40 mg 4-29 tablet by [facility] tablet 00:00: mouth 00 daily. [facility] pregabalin 2021-0 Yes [id number] 150mg Take 1 [facility] 150 mg 4-29 capsule by [facility] capsule 00:00: mouth 3 (three) Medical times [facility] daily. busPIRone 2021-0 Yes [id number] 20mg Take 2 [facility] [place] 10 mg 4-29 tablets by [facility] tablet 00:00: mouth (two) [facility] times [facility] daily. citalopram 2021-0 Yes [id number] 40mg Take 1 [facility] 40 mg 4-29 tablet by [facility] tablet 00:00: mouth 00 daily. [facility] pregabalin 2021-0 Yes [id number] 150mg Take 1 [facility] 150 mg 4-29 capsule by [facility] capsule 00:00: mouth 3 (three) Medical times [facility] daily. busPIRone 2021-0 Yes [id number] 20mg Take 2 [facility] [place] 10 mg 4-29 tablets by [facility] tablet 00:00: mouth 2 (two) Medical times [facility] daily. citalopram 2021-0 Yes [id number] 40mg Take 1 [facility] 40 mg 4-29 tablet by [facility] tablet 00:00: mouth 00 daily. [facility] pregabalin 2021-0 Yes [id number] 150mg Take 1 [facility] 150 mg 4-29 capsule by [facility] of capsule 00:00: mouth 3 (three) Medical times [facility] daily. busPIRone 2021-0 Yes [id number] 20mg Take 2 [facility] [place] 10 mg 4-29 tablets by [facility] tablet 00:00: mouth (two) [facility] times [facility] daily. citalopram 2021-0 Yes [id number] 40mg Take 1 [facility] 40 mg 4-29 tablet by [facility] tablet 00:00: mouth 00 daily. [facility] pregabalin 2021-0 Yes [id number] 150mg Take 1 [facility] 150 mg 4-29 capsule by [facility] capsule 00:00: mouth 3 (three) Medical times [facility] daily. busPIRone 2021-0 Yes [id number] 20mg Take 2 [facility] [place] 10 mg 4-29 tablets by [facility] tablet 00:00: mouth (two) Medical times [facility] daily. citalopram 2021-0 Yes [id number] 40mg Take 1 [facility] 40 mg 4-29 tablet by [facility] tablet 00:00: mouth 00 daily. [facility] pregabalin 2021-0 Yes [id number] 150mg Take 1 [facility] 150 mg 4-29 capsule by [facility] capsule 00:00: mouth 3 (three) Medical times [facility] daily. busPIRone 2021-0 Yes [id number] 20mg Take 2 [facility] [place] 10 mg 4-29 tablets by [facility] tablet 00:00: mouth (two) Medical times [facility] daily. citalopram 2021-0 Yes [id number] 40mg Take 1 [facility] 40 mg 4-29 tablet by [facility] tablet 00:00: mouth 00 daily. [facility] pregabalin 2021-0 Yes [id number] 150mg Take 1 [facility] 150 mg 4-29 capsule by [facility] of capsule 00:00: mouth (three) Medical times [facility] daily. busPIRone 2021-0 Yes [id number] 20mg Take 2 [facility] [place] 10 mg 4-29 tablets by [facility] tablet 00:00: mouth (two) Medical times [facility] daily. citalopram 2021-0 Yes [id number] 40mg Take 1 [facility] 40 mg 4-29 tablet by [facility] tablet 00:00: mouth daily. [facility] pregabalin 2021-0 Yes [id number] 150mg Take 1 [facility] 150 mg 4-29 capsule by [facility] capsule 00:00: mouth (three) Medical times [facility] daily. busPIRone 2021-0 Yes [id number] 20mg Take 2 [facility] [place] 10 mg 4-29 tablets by [facility] of tablet 00:00: mouth (two) Medical times [facility] daily. citalopram 2021-0 Yes [id number] 40mg Take 1 [facility] 40 mg 4-29 tablet by [facility] tablet 00:00: mouth daily. [facility] pregabalin 2021-0 Yes [id number] 150mg Take 1 [facility] 150 mg 4-29 capsule by [facility] of capsule 00:00: mouth (three) Medical times [facility] daily. busPIRone 2021-0 Yes [id number] 20mg Take 2 [facility] [place] 10 mg 4-29 tablets by [facility] tablet 00:00: mouth (two) Medical times [facility] daily. citalopram 2021-0 Yes [id number] 40mg Take 1 [facility] 40 mg 4-29 tablet by [facility] tablet 00:00: mouth 00 daily. [facility] pregabalin 2021-0 Yes [id number] 150mg Take 1 [facility] 150 mg 4-29 capsule by [facility] of capsule 00:00: mouth 3 [place] 00 (three) Medical times [facility] daily. busPIRone Yes [id number] 20mg Take 2 [facility] 10 mg 4-29 tablets by [facility] of tablet 00:00: mouth 2 [place] 00 (two) Medical times [facility] daily. citalopram Yes [id number] 40mg Take 1 [facility] 40 mg 4-29 tablet by [facility] of tablet 00:00: mouth [place] 00 daily. [facility] pregabalin 2021- No [id number] 150mg Take 1 [facility] 150 mg 4-29 10-13 capsule by [facility] of capsule 00:00: 00:00 mouth 3 [place] 00 :00 (three) Medical times [facility] daily. busPIRone 2021- No [id number] 20mg Take 2 [facility] 10 mg 4-29 10-13 tablets by [facility] of tablet 00:00: 00:00 mouth 2 [place] 00 :00 (two) Medical times [facility] daily. pantoprazol Yes [id number] 40mg Take 1 [facility] e 40 mg EC 4-04 tablet by [facility] of tablet 00:00: mouth [place] 00 daily. [facility] pantoprazol Yes [id number] 40mg Take 1 [facility] e 40 mg EC 4-04 tablet by [facility] of tablet 00:00: mouth [place] 00 daily. [facility] pantoprazol Yes [id number] 40mg Take 1 [facility] e 40 mg EC 4-04 tablet by [facility] of tablet 00:00: mouth [place] 00 daily. [facility] pantoprazol Yes [id number] 40mg Take 1 [facility] e 40 mg EC 4-04 tablet by [facility] of tablet 00:00: mouth [place] 00 daily. [facility] pantoprazol 0 Yes [id number] 40mg Take 1 [facility] e 40 mg EC 4-04 tablet by [facility] of tablet 00:00: mouth [place] 00 daily. [facility] pantoprazol Yes [id number] 40mg Take 1 [facility] e 40 mg EC 4-04 tablet by [facility] of tablet 00:00: mouth [place] 00 daily. [facility] pantoprazol Yes [id number] 40mg Take 1 [facility] e 40 mg EC 4-04 tablet by [facility] of tablet 00:00: mouth [place] 00 daily. [facility] pantoprazol Yes [id number] 40mg Take 1 [facility] e 40 mg EC 4-04 tablet by [facility] of tablet 00:00: mouth [place] 00 daily. [facility] pantoprazol Yes [id number] 40mg Take 1 [facility] e 40 mg EC 4-04 tablet by [facility] of tablet 00:00: mouth [place] 00 daily. [facility] pantoprazol Yes [id number] 40mg Take 1 [facility] e 40 mg EC 4-04 tablet by [facility] of tablet 00:00: mouth [place] 00 daily. [facility] pantoprazol Yes [id number] 40mg Take 1 [facility] e 40 mg EC 4-04 tablet by [facility] of tablet 00:00: mouth [place] 00 daily. [facility] pantoprazol Yes [id number] 40mg Take 1 [facility] e 40 mg EC 4-04 tablet by [facility] of tablet 00:00: mouth [place] 00 daily. [facility] pantoprazol Yes [id number] 40mg Take 1 [facility] e 40 mg EC 4-04 tablet by [facility] of tablet 00:00: mouth [place] 00 daily. [facility] pantoprazol Yes [id number] 40mg Take 1 [facility] e 40 mg EC 4-04 tablet by [facility] of tablet 00:00: mouth [place] 00 daily. [facility] pantoprazol Yes [id number] 40mg Take 1 [facility] e 40 mg EC 4-04 tablet by [facility] of tablet 00:00: mouth [place] 00 daily. [facility] pantoprazol Yes [id number] 40mg Take 1 [facility] e 40 mg EC 4-04 tablet by [facility] of tablet 00:00: mouth [place] 00 daily. [facility] pantoprazol 2021-0 Yes [id number] 40mg Take 1 [facility] e 40 mg EC 4-04 tablet by [facility] of tablet 00:00: mouth [place] 00 daily. [facility] pantoprazol Yes [id number] 40mg Take 1 [facility] e 40 mg EC 4-04 tablet by [facility] of tablet 00:00: mouth [place] 00 daily. [facility] pantoprazol 2021- Yes [id number] 40mg Take 1 [facility] e 40 mg EC 4-04 tablet by [facility] of tablet 00:00: mouth [place] 00 daily. [facility] pantoprazol 2022-0 Yes [id number] 40mg Take 1 [facility] e 40 mg EC 4-04 tablet by [facility] of tablet 00:00: mouth [place] 00 daily. [facility] pantoprazol 2021-0 Yes [id number] 40mg Take 1 [facility] e 40 mg EC 4-04 tablet by [facility] of tablet 00:00: mouth [place] 00 daily. [facility] pantoprazol 2021-0 Yes [id number] 40mg Take 1 [facility] e 40 mg EC 4-04 tablet by [facility] of tablet 00:00: mouth [place] 00 daily. [facility] pantoprazol 0 Yes [id number] 40mg Take 1 [facility] e 40 mg EC 4-04 tablet by [facility] of tablet 00:00: mouth [place] 00 daily. [facility] pantoprazol 0 Yes [id number] 40mg Take 1 [facility] e 40 mg EC 4-04 tablet by [facility] of tablet 00:00: mouth [place] 00 daily. [facility] pantoprazol 2021-0 Yes [id number] 40mg Take 1 [facility] e 40 mg EC 4-04 tablet by [facility] of tablet 00:00: mouth [place] 00 daily. [facility] pantoprazol 0 Yes [id number] 40mg Take 1 [facility] e 40 mg EC 4-04 tablet by [facility] of tablet 00:00: mouth [place] 00 daily. [facility] pantoprazol 0 Yes [id number] 40mg Take 1 [facility] e 40 mg EC 4-04 tablet by [facility] of tablet 00:00: mouth [place] 00 daily. [facility] pantoprazol 2021-0 Yes [id number] 40mg Take 1 [facility] e 40 mg EC 4-04 tablet by [facility] of tablet 00:00: mouth [place] 00 daily. [facility] pantoprazol 2021-0 Yes [id number] 40mg Take 1 [facility] e 40 mg EC 4-04 tablet by [facility] of tablet 00:00: mouth [place] 00 daily. [facility] pantoprazol 2021-0 Yes [id number] 40mg Take 1 [facility] e 40 mg EC 4-04 tablet by [facility] of tablet 00:00: mouth [place] 00 daily. [facility] pantoprazol 2021- No [id number] 40mg Take 1 [facility] e 40 mg EC 4-04 09-16 tablet by [facility] of tablet 00:00: 00:00 mouth [place] 00 :00 daily. [facility] pantoprazol 2021-0 2022- No [id number] 40mg Take 1 [facility] e 40 mg EC 12-2816 tablet by [facility] of tablet 00:00: 00:00 mouth [place] 00 :00 daily. [facility] Blood-Gluco 2-0 Yes [id number] Use twice [facility] se Meter 3-08 a day for ity of (ONETOUCH 00:00: [place] VERIO FLEX E11.65 Medical START) [facility] Blood-Gluco 2-0 Yes [id number] Use twice [facility] se Meter 3-08 a day for it[facility] of (ONETOUCH 00:00: [place] VERIO FLEX E11.65 Medical START) [facility] Blood-Gluco 2021-0 Yes [id number] Use twice [facility] se Meter 3-08 a day for ity of (ONETOUCH 00:00: ICD [place] VERIO FLEX E11.65 Medical START) [facility] Blood-Gluco 2021-0 Yes [id number] Use twice [facility] se Meter 3-08 a day for ity of (ONETOUCH 00:00: ICD [place] VERIO FLEX E11.65 Medical START) [facility] Blood-Gluco 2021-0 Yes [id number] Use twice [facility] se Meter 3-08 a day for ity of (ONETOUCH 00:00: ICD [place] VERIO FLEX E11.65 Medical START) [facility] Blood-Gluco 2-0 Yes [id number] Use twice [facility] se Meter 3-08 a day for ity of (ONETOUCH 00:00: ICD CODE [place] VERIO FLEX E11.65 Medical START) [facility] Blood-Gluco 2-0 Yes [id number] Use twice [facility] se Meter 3-08 a day for ity of (ONETOUCH 00:00: ICD CODE [place] VERIO FLEX E11.65 Medical START) [facility] Blood-Gluco 2-0 Yes [id number] Use twice [facility] se Meter 3-08 a day for ity of (ONETOUCH 00:00: ICD CODE [place] VERIO FLEX E11.65 Medical START) [facility] Blood-Gluco 2-0 Yes [id number] Use twice [facility] se Meter 3-08 a day for it[facility] of (ONETOUCH 00:00: ICD [place] VERIO FLEX Medical START) [facility] Blood-Gluco 2022-0 Yes [id number] Use twice [facility] se Meter 3-08 a day for ity of (ONETOUCH 00:00: ICD [place] VERIO FLEX Medical START) [facility] Blood-Gluco 2022-0 Yes [id number] Use twice [facility] se Meter 3-08 a day for ity of (ONETOUCH 00:00: ICD [place] VERIO FLEX Medical START) [facility] Blood-Gluco 2022-0 Yes [id number] Use twice [facility] se M[facility] 3-08 a day for ity of (ONETOUCH 00:00: ICD CODE [place] VERIO FLEX Medical START) [facility] Blood-Gluco 2022-0 Yes [id number] Use twice [facility] se M[facility] 3-08 a day for ity of (ONETOUCH 00:00: ICD [place] VERIO FLEX Medical START) [facility] Blood-Gluco 2022-0 Yes [id number] Use twice [facility] se M[facility] 3-08 a day for ity of (ONETOUCH 00:00: ICD [place] VERIO FLEX Medical START) [facility] Blood-Gluco 2022-0 Yes [id number] Use twice [facility] se Meter 3-08 a day for ity of (ONETOUCH 00:00: ICD CODE [place] VERIO FLEX Medical START) [facility] Blood-Gluco 2022-0 Yes [id number] Use twice [facility] se M[facility] 3-08 a day for ity of (ONETOUCH 00:00: ICD CODE [place] VERIO FLEX Medical START) [facility] Blood-Gluco 2022-0 Yes [id number] Use twice [facility] se Meter 3-08 a day for ity of (ONETOUCH 00:00: ICD CODE [place] VERIO FLEX Medical START) [facility] Blood-Gluco 2022-0 Yes [id number] Use twice [facility] se Meter 3-08 a day for ity of (ONETOUCH 00:00: ICD CODE [place] VERIO FLEX Medical START) [facility] Blood-Gluco 2022-0 Yes [id number] Use twice [facility] se Meter 3-08 a day for ity of (ONETOUCH 00:00: ICD CODE [place] VERIO FLEX E11.65 Medical START) [facility] Blood-Gluco 2022-0 Yes [id number] Use twice [facility] se M[facility] 3-08 a day for ity of (ONETOUCH 00:00: ICD CODE [place] VERIO FLEX E11.65 Medical START) [facility] Blood-Gluco 2022-0 Yes [id number] Use twice [facility] se M[facility] 3-08 a day for ity of (ONETOUCH 00:00: ICD CODE [place] VERIO FLEX E11.65 Medical START) [facility] Blood-Gluco 2022-0 Yes [id number] Use twice [facility] se M[facility] 3-08 a day for ity of (ONETOUCH 00:00: ICD CODE [place] VERIO FLEX E11.65 Medical START) [facility] Blood-Gluco 2022-0 Yes [id number] Use twice [facility] se M[facility] 3-08 a day for ity of (ONETOUCH 00:00: ICD CODE [place] VERIO FLEX .65 Medical START) [facility] Blood-Gluco 2022-0 Yes [id number] Use twice [facility] se M[facility] 3-08 a day for ity of (ONETOUCH 00:00: ICD CODE [place] VERIO FLEX E11.65 Medical START) [facility] Blood-Gluco 2022-0 Yes [id number] Use twice [facility] se M[facility] 3-08 a day for ity of (ONETOUCH 00:00: ICD CODE [place] VERIO FLEX E11.65 Medical START) [facility] Blood-Gluco 2022-0 Yes [id number] Use twice [facility] se M[facility] 3-08 a day for ity of (ONETOUCH 00:00: ICD CODE [place] VERIO FLEX E11.65 Medical START) [facility] Blood-Gluco 2022-0 Yes [id number] Use twice [facility] se M[facility] 3-08 a day for ity of (ONETOUCH 00:00: ICD CODE [place] VERIO FLEX E11.65 Medical START) [facility] Blood-Gluco 2022-0 Yes [id number] Use twice [facility] se M[facility] 3-08 a day for ity of (ONETOUCH 00:00: ICD CODE [place] VERIO FLEX Medical START) [facility] Blood-Gluco 2022-0 Yes [id number] Use twice [facility] se Meter 3-08 a day for ity of (ONETOUCH 00:00: ICD CODE [place] VERIO FLEX Medical START) [facility] Blood-Gluco 2022-0 Yes [id number] Use twice [facility] se Meter 3-08 a day for ity of (ONETOUCH 00:00: ICD CODE [place] VERIO FLEX Medical START) [facility] Blood-Gluco 2022-0 Yes [id number] Use twice [facility] se Meter 3-08 a day for ity of (ONETOUCH 00:00: ICD CODE [place] VERIO FLEX Medical START) [facility] Blood-Gluco 2022-0 Yes [id number] Use twice [facility] se Meter 3-08 a day for ity of (ONETOUCH 00:00: ICD CODE [place] VERIO FLEX Medical START) [facility] Blood-Gluco 2022-0 Yes [id number] Use twice [facility] se Meter 3-08 a day for ity of (ONETOUCH 00:00: ICD CODE [place] VERIO FLEX Medical START) [facility] Blood-Gluco 2022-0 Yes [id number] Use twice [facility] se Meter 3-08 a day for ity of (ONETOUCH 00:00: ICD CODE [place] VERIO FLEX Medical START) [facility] Blood-Gluco 2022-0 Yes [id number] Use twice [facility] se Meter 3-08 a day for ity of (ONETOUCH 00:00: ICD CODE [place] VERIO FLEX Medical START) [facility] Blood-Gluco 2022-0 Yes [id number] Use twice [facility] se Meter 3-08 a day for ity of (ONETOUCH 00:00: ICD CODE [place] VERIO FLEX Medical START) [facility] Blood-Gluco 2022-0 202- No [id number] Use twice [facility] se Meter 3-08 09-22 a day for ity o f (ONETOUCH 00:00: 00:00 ICD CODE [place] VERIO FLEX 00 :00 E11 Medical START) [facility] Blood-Gluco 2022-0 2021- No [id number] Use twice [facility] se Meter 3-08 -22 a day for ity o f (ONETOUCH 00:00: 00:00 ICD CODE [place] VERIO FLEX 00 :00 E11.65 Medical START) [facility] Blood-Gluco 2021- No [id number] Use twice [facility] se Meter 3-05 04-22 a day for ity o f (ONETOUCH 00:00: 00:00 ICD CODE [place] VERIO FLEX 00 :00 E11.65 Medical START) [facility] Branch mirabegron 0 Yes [id number] 50mg Take 1 [facility] (MYRBETRIQ) 1-18 tablet by ity of 50 mg 00:00: mouth [place] tablet 00 daily. [facility] Branch mirabegron 0 Yes [id number] 50mg Take 1 [facility] (MYRBETRIQ) 1-18 tablet by ity of 50 mg 00:00: mouth [place] tablet 00 daily. [facility] mirabegron 0 Yes [id number] 50mg Take 1 [facility] (MYRBETRIQ) 1-18 tablet by ity of 50 mg 00:00: mouth [place] tablet 00 daily. [facility] mirabegron 0 Yes [id number] 50mg Take 1 [facility] (MYRBETRIQ) 1-18 tablet by ity of 50 mg 00:00: mouth [place] tablet 00 daily. [facility] mirabegron 0 Yes [id number] 50mg Take 1 [facility] (MYRBETRIQ) 1-18 tablet by ity of 50 mg 00:00: mouth [place] tablet 00 daily. [facility] mirabegron 0 Yes [id number] 50mg Take 1 [facility] (MYRBETRIQ) 1-18 tablet by ity of 50 mg 00:00: mouth [place] tablet 00 daily. [facility] Branch mirabegron 0 Yes [id number] 50mg Take 1 [facility] (MYRBETRIQ) 1-18 tablet by ity of 50 mg 00:00: mouth [place] tablet 00 daily. [facility] Branch mirabegron 0 Yes [id number] 50mg Take 1 [facility] (MYRBETRIQ) 1-18 tablet by ity of 50 mg 00:00: mouth [place] tablet 00 daily. [facility] Branch mirabegron 0 Yes [id number] 50mg Take 1 [facility] (MYRBETRIQ) 1-18 tablet by ity of 50 mg 00:00: mouth [place] tablet [address] [facility] mirabegron 0 Yes [id number] 50mg Take 1 [facility] (MYRBETRIQ) 1-18 tablet by ity of 50 mg 00:00: mouth [place] tablet [address] [facility] mirabegron 0 Yes [id number] 50mg Take 1 [facility] (MYRBETRIQ) 1-18 tablet by ity of 50 mg 00:00: mouth [place] tablet [address] [facility] mirabegron 0 Yes [id number] 50mg Take 1 [facility] (MYRBETRIQ) 1-18 tablet by ity of 50 mg 00:00: mouth [place] tablet [address] [facility] mirabegron 0 Yes [id number] 50mg Take 1 [facility] (MYRBETRIQ) 1-18 tablet by ity of 50 mg 00:00: mouth [place] tablet [address] [facility] mirabegron 0 Yes [id number] 50mg Take 1 [facility] (MYRBETRIQ) 1-18 tablet by ity of 50 mg 00:00: mouth [place] tablet [address] [facility] mirabegron 0 Yes [id number] 50mg Take 1 [facility] (MYRBETRIQ) 1-18 tablet by ity of 50 mg 00:00: mouth [place] tablet [address] [facility] mirabegron 0 Yes [id number] 50mg Take 1 [facility] (MYRBETRIQ) 1-18 tablet by ity of 50 mg 00:00: mouth [place] tablet [address] [facility] mirabegron 0 Yes [id number] 50mg Take 1 [facility] (MYRBETRIQ) 1-18 tablet by ity of 50 mg 00:00: mouth [place] tablet [address] [facility] mirabegron 0 Yes [id number] 50mg Take 1 [facility] (MYRBETRIQ) 1-18 tablet by ity of 50 mg 00:00: mouth [place] tablet [address] [facility] mirabegron 0 Yes [id number] 50mg Take 1 [facility] (MYRBETRIQ) 1-18 tablet by ity of 50 mg 00:00: mouth [place] tablet [address] [facility] mirabegron 2022-0 Yes [id number] 50mg Take 1 [facility] (MYRBETRIQ) 1-18 tablet by ity of 50 mg 00:00: mouth [place] tablet [address] [facility] mirabegron 0 Yes [id number] 50mg Take 1 [facility] (MYRBETRIQ) 1-18 tablet by ity of 50 mg 00:00: mouth [place] tablet [address] [facility] mirabegron 0 Yes [id number] 50mg Take 1 [facility] (MYRBETRIQ) 1-18 tablet by ity of 50 mg 00:00: mouth [place] tablet [address] [facility] mirabegron 0 Yes [id number] 50mg Take 1 [facility] (MYRBETRIQ) 1-18 tablet by ity of 50 mg 00:00: mouth [place] tablet [address] [facility] mirabegron 0 Yes [id number] 50mg Take 1 [facility] (MYRBETRIQ) 1-18 tablet by ity of 50 mg 00:00: mouth [place] tablet [address] [facility] mirabegron 0 Yes [id number] 50mg Take 1 [facility] (MYRBETRIQ) 1-18 tablet by ity of 50 mg 00:00: mouth [place] tablet [address] [facility] mirabegron 0 Yes [id number] 50mg Take 1 [facility] (MYRBETRIQ) 1-18 tablet by ity of 50 mg 00:00: mouth [place] tablet [address] [facility] mirabegron 0 Yes [id number] 50mg Take 1 [facility] (MYRBETRIQ) 1-18 tablet by ity of 50 mg 00:00: mouth [place] tablet [address] [facility] mirabegron 0 Yes [id number] 50mg Take 1 [facility] (MYRBETRIQ) 1-18 tablet by ity of 50 mg 00:00: mouth [place] tablet 00 daily. [facility] mirabegron 0 Yes [id number] 50mg Take 1 [facility] (MYRBETRIQ) 1-18 tablet by ity of 50 mg 00:00: mouth [place] tablet [address] [facility] mirabegron 0 Yes [id number] 50mg Take 1 [facility] (MYRBETRIQ) 1-18 tablet by ity of 50 mg 00:00: mouth [place] tablet [address] [facility] mirabegron 2022-0 Yes [id number] 50mg Take 1 [facility] (MYRBETRIQ) 1-18 tablet by ity of 50 mg 00:00: mouth [place] tablet 00 daily. [facility] mirabegron 2021-0 Yes [id number] 50mg Take 1 [facility] (MYRBETRIQ) 1-18 tablet by ity of 50 mg 00:00: mouth [place] tablet [address] [facility] mirabegron 2021-0 Yes [id number] 50mg Take 1 [facility] (MYRBETRIQ) 1-18 tablet by ity of 50 mg 00:00: mouth [place] tablet 00 daily. [facility] mirabegron 2021-0 Yes [id number] 50mg Take 1 [facility] (MYRBETRIQ) 1-18 tablet by ity of 50 mg 00:00: mouth [place] tablet [address] [facility] mirabegron 0 Yes [id number] 50mg Take 1 [facility] (MYRBETRIQ) 1-18 tablet by ity of 50 mg 00:00: mouth [place] tablet [address] [facility] mirabegron 0 Yes [id number] 50mg Take 1 [facility] (MYRBETRIQ) 1-18 tablet by ity of 50 mg 00:00: mouth [place] tablet [address] [facility] mirabegron 0 Yes [id number] 50mg Take 1 [facility] (MYRBETRIQ) 1-18 tablet by ity of 50 mg 00:00: mouth [place] tablet [address] [facility] mirabegron 2021-0 Yes [id number] 50mg Take 1 [facility] (MYRBETRIQ) 1-18 tablet by ity of 50 mg 00:00: mouth [place] tablet [address] [facility] mirabegron 2021-0 Yes [id number] 50mg Take 1 [facility] (MYRBETRIQ) 1-18 tablet by ity of 50 mg 00:00: mouth [place] tablet [address] [facility] mirabegron 2021-0 Yes [id number] 50mg Take 1 [facility] (MYRBETRIQ) 1-18 tablet by ity of 50 mg 00:00: mouth [place] tablet [address] [facility] mirabegron 2021-0 Yes [id number] 50mg Take 1 [facility] (MYRBETRIQ) 1-18 tablet by ity of 50 mg 00:00: mouth [place] tablet 00 daily. [facility] mirabegron Yes [id number] 50mg Take 1 [facility] (MYRBETRIQ) 1-18 tablet by ity of 50 mg 00:00: mouth [place] tablet 00 daily. [facility] mirabegron 0 Yes [id number] 50mg Take 1 [facility] (MYRBETRIQ) 1-18 tablet by ity of 50 mg 00:00: mouth [place] tablet 00 daily. [facility] mirabegron 0 Yes [id number] 50mg Take 1 [facility] (MYRBETRIQ) 1-18 tablet by ity of 50 mg 00:00: mouth [place] tablet 00 daily. [facility] mirabegron 0 Yes [id number] 50mg Take 1 [facility] (MYRBETRIQ) 1-18 tablet by ity of 50 mg 00:00: mouth [place] tablet [address] [facility] mirabegron Yes [id number] 50mg Take 1 [facility] (MYRBETRIQ) 1-18 tablet by ity of 50 mg 00:00: mouth [place] tablet 00 daily. [facility] mirabegron 0 Yes [id number] 50mg Take 1 [facility] (MYRBETRIQ) 1-18 tablet by ity of 50 mg 00:00: mouth [place] tablet 00 daily. [facility] mirabegron 0 Yes [id number] 50mg Take 1 [facility] (MYRBETRIQ) 1-18 tablet by ity of 50 mg 00:00: mouth [place] tablet [address] [facility] mirabegron 2021- No [id number] 50mg Take 1 [facility] (MYRBETRIQ) 1-18 10-13 tablet by it y of 50 mg 00:00: 00:00 mouth [place] tablet 00 :00 daily. Medical Branch semaglutide 2020-09 Yes [id number] Inject [facility] (OZEMPIC) 2-01 0.25 mg ity of 0.25 mg or 00:00: under the [place] 0.5 mg(2 00 skin Medical mg/1.5 mL) weekly. Branch Pn semaglutide 2020-09 Yes [id number] Inject [facility] (OZEMPIC) 2-01 0.25 mg ity of 0.25 mg or 00:00: under the [place] 0.5 mg(2 00 skin Medical mg/1.5 mL) weekly. Branch PnIj semaglutide 2020-09 Yes [id number] Inject [facility] (OZEMPIC) 2-01 0.25 mg ity of 0.25 mg or 00:00: under the [place] 0.5 mg(2 00 skin Medical mg/1.5 mL) weekly. Branch PnIj semaglutide 2020-09 Yes [id number] Inject [facility] (OZEMPIC) 2-01 0.25 mg ity of 0.25 mg or 00:00: under the [place] 0.5 mg(2 00 skin Medical mg/1.5 mL) weekly. Branch PnIj semaglutide 2020-09 Yes [id number] Inject [facility] (OZEMPIC) 2-01 0.25 mg ity of 0.25 mg or 00:00: under the [place] 0.5 mg(2 00 skin Medical mg/1.5 mL) weekly. Branch PnIj semaglutide 2020-09 Yes [id number] Inject [facility] (OZEMPIC) 2-01 0.25 mg ity of 0.25 mg or 00:00: under the [place] 0.5 mg(2 00 skin Medical mg/1.5 mL) weekly. Branch PnIj semaglutide 2020-09 Yes [id number] Inject [facility] (OZEMPIC) 2-01 0.25 mg ity of 0.25 mg or 00:00: under the [place] 0.5 mg(2 00 skin Medical mg/1.5 mL) weekly. Branch PnIj semaglutide 2020-09 Yes [id number] Inject [facility] (OZEMPIC) 2-01 0.25 mg ity of 0.25 mg or 00:00: under the [place] 0.5 mg(2 00 skin Medical mg/1.5 mL) weekly. Branch PnIj semaglutide 2020-09 Yes [id number] Inject [facility] (OZEMPIC) 2-01 0.25 mg ity of 0.25 mg or 00:00: under the [place] 0.5 mg(2 00 skin Medical mg/1.5 mL) weekly. Branch PnIj semaglutide 2020-09 Yes [id number] Inject [facility] (OZEMPIC) 2-01 0.25 mg ity of 0.25 mg or 00:00: under the [place] 0.5 mg(2 00 skin Medical mg/1.5 mL) weekly. Branch PnIj semaglutide 2020-09 Yes [id number] Inject [facility] (OZEMPIC) 2-01 0.25 mg ity of 0.25 mg or 00:00: under the [place] 0.5 mg(2 00 skin Medical mg/1.5 mL) weekly. Branch PnIj semaglutide 2020-09 Yes [id number] Inject [facility] (OZEMPIC) 2-01 0.25 mg ity of 0.25 mg or 00:00: under the [place] 0.5 mg(2 00 skin Medical mg/1.5 mL) weekly. Branch PnIj semaglutide 2020-09 Yes [id number] Inject [facility] (OZEMPIC) 2-01 0.25 mg ity of 0.25 mg or 00:00: under the [place] 0.5 mg(2 00 skin Medical mg/1.5 mL) weekly. Branch PnIj semaglutide 2020-09 Yes [id number] Inject [facility] (OZEMPIC) 2-01 0.25 mg ity of 0.25 mg or 00:00: under the [place] 0.5 mg(2 00 skin Medical mg/1.5 mL) weekly. Branch PnIj semaglutide 2020-09 Yes [id number] Inject [facility] (OZEMPIC) 2-01 0.25 mg ity of 0.25 mg or 00:00: under the [place] 0.5 mg(2 00 skin Medical mg/1.5 mL) weekly. Branch PnIj semaglutide 2020-09 Yes [id number] Inject [facility] (OZEMPIC) 2-01 0.25 mg ity of 0.25 mg or 00:00: under the [place] 0.5 mg(2 00 skin Medical mg/1.5 mL) weekly. Branch PnIj semaglutide 2020-09 Yes [id number] Inject [facility] (OZEMPIC) 2-01 0.25 mg ity of 0.25 mg or 00:00: under the [place] 0.5 mg(2 00 skin Medical mg/1.5 mL) weekly. Branch PnIj semaglutide 2020-09 Yes [id number] Inject [facility] (OZEMPIC) 2-01 0.25 mg ity of 0.25 mg or 00:00: under the [place] 0.5 mg(2 00 skin Medical mg/1.5 mL) weekly. Branch PnIj semaglutide 2020-09 Yes [id number] Inject [facility] (OZEMPIC) 2-01 0.25 mg ity of 0.25 mg or 00:00: under the [place] 0.5 mg(2 00 skin Medical mg/1.5 mL) weekly. Branch PnIj semaglutide 2020-09 Yes [id number] Inject [facility] (OZEMPIC) 2-01 0.25 mg ity of 0.25 mg or 00:00: under the [place] 0.5 mg(2 00 skin Medical mg/1.5 mL) weekly. Branch PnIj semaglutide 2020-09 Yes [id number] Inject [facility] (OZEMPIC) 2-01 0.25 mg ity of 0.25 mg or 00:00: under the [place] 0.5 mg(2 00 skin Medical mg/1.5 mL) weekly. Branch PnIj semaglutide 2020-09 Yes [id number] Inject [facility] (OZEMPIC) 2-01 0.25 mg ity of 0.25 mg or 00:00: under the [place] 0.5 mg(2 00 skin Medical mg/1.5 mL) weekly. Branch PnIj semaglutide 2020-09 Yes [id number] Inject [facility] (OZEMPIC) 2-01 0.25 mg ity of 0.25 mg or 00:00: under the [place] 0.5 mg(2 00 skin Medical mg/1.5 mL) weekly. Branch PnIj semaglutide 2020-09 Yes [id number] Inject [facility] (OZEMPIC) 2-01 0.25 mg ity of 0.25 mg or 00:00: under the [place] 0.5 mg(2 00 skin Medical mg/1.5 mL) weekly. Branch PnIj semaglutide 2020-09 Yes [id number] Inject [facility] (OZEMPIC) 2-01 0.25 mg ity of 0.25 mg or 00:00: under the [place] 0.5 mg(2 00 skin Medical mg/1.5 mL) weekly. Branch PnIj semaglutide 2020-09 Yes [id number] Inject [facility] (OZEMPIC) 2-01 0.25 mg ity of 0.25 mg or 00:00: under the [place] 0.5 mg(2 00 skin Medical mg/1.5 mL) weekly. Branch PnIj semaglutide 2020-09 Yes [id number] Inject [facility] (OZEMPIC) 2-01 0.25 mg ity of 0.25 mg or 00:00: under the [place] 0.5 mg(2 00 skin Medical mg/1.5 mL) weekly. Branch PnIj semaglutide 2020-09 Yes [id number] Inject [facility] (OZEMPIC) 2-01 0.25 mg ity of 0.25 mg or 00:00: under the [place] 0.5 mg(2 00 skin Medical mg/1.5 mL) weekly. Branch PnIj semaglutide 2020-09 Yes [id number] Inject [facility] (OZEMPIC) 2-01 0.25 mg ity of 0.25 mg or 00:00: under the [place] 0.5 mg(2 00 skin Medical mg/1.5 mL) weekly. Branch PnIj semaglutide 2020-09 Yes [id number] Inject [facility] (OZEMPIC) 2-01 0.25 mg ity of 0.25 mg or 00:00: under the [place] 0.5 mg(2 00 skin Medical mg/1.5 mL) weekly. Branch PnIj semaglutide 2020-09 Yes [id number] Inject [facility] (OZEMPIC) 2-01 0.25 mg ity of 0.25 mg or 00:00: under the [place] 0.5 mg(2 00 skin Medical mg/1.5 mL) weekly. Branch PnIj semaglutide 2020-09 Yes [id number] Inject [facility] (OZEMPIC) 2-01 0.25 mg ity of 0.25 mg or 00:00: under the [place] 0.5 mg(2 00 skin Medical mg/1.5 mL) weekly. Branch PnIj semaglutide 2020-09 Yes [id number] Inject [facility] (OZEMPIC) 2-01 0.25 mg ity of 0.25 mg or 00:00: under the [place] 0.5 mg(2 00 skin Medical mg/1.5 mL) weekly. Branch PnIj semaglutide 2020-09 Yes [id number] Inject [facility] (OZEMPIC) 2-01 0.25 mg ity of 0.25 mg or 00:00: under the [place] 0.5 mg(2 00 skin Medical mg/1.5 mL) weekly. Branch PnIj semaglutide 2020-09 Yes [id number] Inject [facility] (OZEMPIC) 2-01 0.25 mg ity of 0.25 mg or 00:00: under the [place] 0.5 mg(2 00 skin Medical mg/1.5 mL) weekly. Branch PnIj semaglutide 2020-09 Yes [id number] Inject [facility] (OZEMPIC) 2-01 0.25 mg ity of 0.25 mg or 00:00: under the [place] 0.5 mg(2 00 skin Medical mg/1.5 mL) weekly. Branch PnIj semaglutide 2020-09 Yes [id number] Inject [facility] (OZEMPIC) 2-01 0.25 mg ity of 0.25 mg or 00:00: under the [place] 0.5 mg(2 00 skin Medical mg/1.5 mL) weekly. Branch PnIj semaglutide 2020-09 Yes [id number] Inject [facility] (OZEMPIC) 2-01 0.25 mg ity of 0.25 mg or 00:00: under the [place] 0.5 mg(2 00 skin Medical mg/1.5 mL) weekly. Branch PnIj semaglutide 2020-09 Yes [id number] Inject [facility] (OZEMPIC) 2-01 0.25 mg ity of 0.25 mg or 00:00: under the [place] 0.5 mg(2 00 skin Medical mg/1.5 mL) weekly. Branch PnIj semaglutide 2020-09 Yes [id number] Inject [facility] (OZEMPIC) 2-01 0.25 mg ity of 0.25 mg or 00:00: under the [place] 0.5 mg(2 00 skin Medical mg/1.5 mL) weekly. Branch PnIj semaglutide 2020-09 Yes [id number] Inject [facility] (OZEMPIC) 2-01 0.25 mg ity of 0.25 mg or 00:00: under the [place] 0.5 mg(2 00 skin Medical mg/1.5 mL) weekly. Branch PnIj semaglutide 2020-09 Yes [id number] Inject [facility] (OZEMPIC) 2-01 0.25 mg ity of 0.25 mg or 00:00: under the [place] 0.5 mg(2 00 skin Medical mg/1.5 mL) weekly. Branch PnIj semaglutide 2020-09 Yes [id number] Inject [facility] (OZEMPIC) 2-01 0.25 mg ity of 0.25 mg or 00:00: under the [place] 0.5 mg(2 00 skin Medical mg/1.5 mL) weekly. Branch PnIj semaglutide 2020-09 Yes [id number] Inject [facility] (OZEMPIC) 2-01 0.25 mg ity of 0.25 mg or 00:00: under the [place] 0.5 mg(2 00 skin Medical mg/1.5 mL) weekly. Branch PnIj semaglutide 2020-09 Yes [id number] Inject [facility] (OZEMPIC) 2-01 0.25 mg ity of 0.25 mg or 00:00: under the [place] 0.5 mg(2 00 skin Medical mg/1.5 mL) weekly. Branch PnIj semaglutide 2020-09 Yes [id number] Inject [facility] (OZEMPIC) 2-01 0.25 mg ity of 0.25 mg or 00:00: under the [place] 0.5 mg(2 00 skin Medical mg/1.5 mL) weekly. Branch PnIj semaglutide 2020-09 Yes [id number] Inject [facility] (OZEMPIC) 2-01 0.25 mg ity of 0.25 mg or 00:00: under the [place] 0.5 mg(2 00 skin Medical mg/1.5 mL) weekly. Branch PnIj semaglutide 2020-09 Yes [id number] Inject [facility] (OZEMPIC) 2-01 0.25 mg ity of 0.25 mg or 00:00: under the [place] 0.5 mg(2 00 skin Medical mg/1.5 mL) weekly. Branch PnIj semaglutide 2020-09- [id number] Inject [facility] (OZEMPIC) 2-01 10-13 0.25 mg ity of 0.25 mg or 00:00: 00:00 under the [place] 0.5 mg(2 00 :00 skin Medical mg/1.5 mL) weekly. Branch PnIj metformin 2020-09- No [id number] 500mg Take 1 [facility] ER 500 mg 10-27 tablet by ity of 24 hr 00:00: 00:00 mouth [place] tablet 00 :00 daily with Medical breakfast. Branch STOP REGULAR METFORMIN. metformin 2020-09- No [id number] 500mg Take 1 [facility] ER 500 mg 10-27 tablet by ity of 24 hr 00:00: 00:00 mouth [place] tablet 00 :00 daily with Medical breakfast. Branch STOP REGULAR METFORMIN. cyanocobala 2020-09 Yes [id number] 1000ug 1 mL by [facility] min 1,000 -09 Intramuscu ity of mcg/mL 00:00: lar route [place] injection 00 every 2 Medical (two) Branch weeks. levothyroxi 2020-09 Yes [id number] 50ug Take 1 [facility] ne 50 mcg - tablet by ity o f tablet 00:00: mouth [place] 00 every Medical morning. Branch fluticasone 2020-09 Yes [id number] 2{puff} Inhale 2 [facility] propionate -09 Puffs ity of (FLOVENT 00:00: every 12 [place] HFA) 110 00 (twelve) Medical mcg/actuati hours. Branch on inhaler Rinse mouth after each use. levalbutero 2020-09 Yes [id number] .63mg Inhale [facility] l 0.63 mg/3 1-09 0.63 mg 3 ity of mL 00:00: (three) [place] nebulizer 00 times Medical solution daily as Branch needed for Wheezing or Shortness of Breath. losartan 50 2020-09 Yes [id number] 50mg Take 1 [facility] mg tablet -09 tablet by ity o f 00:00: mouth 2 [place] 00 (two) Medical times Branch daily. clotrimazol 2020-09 Yes [id number] Apply to [facility] e-betametha - area(s) 2 ity of sone cream 00:00: (two) [place] 00 times Medical daily. Branch cyclobenzap 2020-09 Yes [id number] TAKE 1 [facility] rine 5 mg 1-09 TABLET BY ity o f tablet 00:00: MOUTH [place] 00 EVERY 8 Medical HOURS Branch NEEDED econazole 2020-09 Yes [id number] Apply to [facility] nitrate 1 % 09 area(s) 2 ity of cream 00:00: (two) [place] 00 times Medical daily. Branch albuterol 2020-09 Yes [id number] 2{puff} Inhale 2 [facility] (PROAIR 1-09 Puffs ity of HFA) 90 00:00: every 6 [place] mcg/actuati 00 (six) Medical on inhaler hours as Branc h needed for Wheezing or Shortness of Breath. triamcinolo 2020-09 Yes [id number] Apply to [facility] ne 0.025 % 09 area(s) 3 ity of ointment 00:00: (three) [place] 00 times Medical daily. For Branch itching diltiazem 2020-09 Yes [id number] 120mg Take 1 [facility] (CARTIA XT) 10-04 capsule by it y of 120 mg 24 00:00: mouth 2 [place] hr capsule 00 (two) Medical times Branch daily. cyanocobala 2020-09 Yes [id number] 1000ug 1 mL by [facility] min 1,000 1-09 Intramuscu ity of mcg/mL 00:00: lar route [place] injection 00 every 2 Medical (two) Branch weeks. levothyroxi 2020-09 Yes [id number] 50ug Take 1 [facility] ne 50 mcg 09 tablet by ity o f tablet 00:00: mouth [place] 00 every Medical morning. Branch fluticasone 2020-09 Yes [id number] 2{puff} Inhale 2 [facility] propionate 1-09 Puffs ity of (FLOVENT 00:00: every 12 [place] HFA) 110 00 (twelve) Medical mcg/actuati hours. Branch on inhaler Rinse mouth after each use. levalbutero 2020-09 Yes [id number] .63mg Inhale [facility] l 0.63 mg/3 1-09 0.63 mg 3 ity of mL 00:00: (three) [place] nebulizer 00 times Medical solution daily as Branch needed for Wheezing or Shortness of Breath. losartan 50 2020-09 Yes [id number] 50mg Take 1 [facility] mg tablet -09 tablet by ity o f 00:00: mouth 2 [place] 00 (two) Medical times Branch daily. clotrimazol 2020-09 Yes [id number] Apply to [facility] e-betametha 10-04 area(s) 2 ity of sone cream 00:00: (two) [place] 00 times Medical daily. Branch cyclobenzap 2020-09 Yes [id number] TAKE 1 [facility] rine 5 mg -09 TABLET BY ity o f tablet 00:00: MOUTH [place] 00 EVERY 8 Medical HOURS Branch NEEDED econazole 2020-09 Yes [id number] Apply to [facility] nitrate 1 % 10-04 area(s) 2 ity of cream 00:00: (two) [place] 00 times Medical daily. Branch albuterol 2020-09 Yes [id number] 2{puff} Inhale 2 [facility] (PROAIR 1-09 Puffs ity of HFA) 90 00:00: every 6 [place] mcg/actuati 00 (six) Medical on inhaler hours as Branc h needed for Wheezing or Shortness of Breath. triamcinolo 2020-09 Yes [id number] Apply to [facility] ne 0.025 % 10-04 area(s) 3 ity of ointment 00:00: (three) [place] 00 times Medical daily. For Branch itching diltiazem 2020-09 Yes [id number] 120mg Take 1 [facility] n[facility] (CARTIA XT) 09 capsule by it y of 120 mg 24 00:00: mouth 2 [place] hr capsule 00 (two) Medical times Branch daily. cyanocobala 2020-09 Yes [id number] 1000ug 1 mL by [facility] min 1,000 -09 Intramuscu ity of mcg/mL 00:00: lar route [place] injection 00 every 2 Medical (two) Branch weeks. levothyroxi 2020-09 Yes [id number] 50ug Take 1 [facility] ne 50 mcg 09 tablet by ity o f tablet 00:00: mouth [place] 00 every Medical morning. Branch fluticasone 2020-09 Yes [id number] 2{puff} Inhale 2 [facility] propionate 1-09 Puffs ity of (FLOVENT 00:00: every 12 [place] HFA) 110 00 (twelve) Medical mcg/actuati hours. Branch on inhaler Rinse mouth after each use. levalbutero 2020-09 Yes [id number] .63mg Inhale [facility] l 0.63 mg/3 1-09 0.63 mg 3 ity of mL 00:00: (three) [place] nebulizer 00 times Medical solution daily as Branch needed for Wheezing or Shortness of Breath. losartan 50 2020-09 Yes [id number] 50mg Take 1 [facility] mg tablet 1-09 tablet by ity o f 00:00: mouth 2 [place] 00 (two) Medical times Branch daily. clotrimazol 2020-09 Yes [id number] Apply to [facility] e-betametha 09 area(s) 2 ity of sone cream 00:00: (two) [place] 00 times Medical daily. Branch cyclobenzap 2020-09 Yes [id number] TAKE 1 [facility] rine 5 mg -09 TABLET BY ity o f tablet 00:00: MOUTH [place] 00 EVERY 8 Medical HOURS Branch NEEDED econazole 2020-09 Yes [id number] Apply to [facility] nitrate 1 % 10-04 area(s) 2 ity of cream 00:00: (two) [place] 00 times Medical daily. Branch albuterol 2020-09 Yes [id number] 2{puff} Inhale 2 [facility] (PROAIR 1-09 Puffs ity of HFA) 90 00:00: every 6 [place] mcg/actuati 00 (six) Medical on inhaler hours as Branc h needed for Wheezing or Shortness of Breath. triamcinolo 2020-09 Yes [id number] Apply to [facility] ne 0.025 % 10-04 area(s) 3 ity of ointment 00:00: (three) [place] 00 times Medical daily. For Branch itching diltiazem 2020-09 Yes [id number] 120mg Take 1 [facility] nivers (CARTIA XT) -09 capsule by it y of 120 mg 24 00:00: mouth 2 [place] hr capsule 00 (two) Medical times Branch daily. cyanocobala 2020-09 Yes [id number] 1000ug 1 mL by [facility] min 1,000 1-09 Intramuscu ity of mcg/mL 00:00: lar route [place] injection 00 every 2 Medical (two) Branch weeks. levothyroxi 2020-09 Yes [id number] 50ug Take 1 [facility] ne 50 mcg -09 tablet by ity o f tablet 00:00: mouth [place] 00 every Medical morning. Branch fluticasone 2020-09 Yes [id number] 2{puff} Inhale 2 [facility] propionate 1-09 Puffs ity of (FLOVENT 00:00: every 12 [place] HFA) 110 00 (twelve) Medical mcg/actuati hours. Branch on inhaler Rinse mouth after each use. levalbutero 2020-09 Yes [id number] .63mg Inhale [facility] l 0.63 mg/3 1-09 0.63 mg 3 ity of mL 00:00: (three) [place] nebulizer 00 times Medical solution daily as Branch needed for Wheezing or Shortness of Breath. losartan 50 2020-09 Yes [id number] 50mg Take 1 [facility] mg tablet -09 tablet by ity o f 00:00: mouth 2 [place] 00 (two) Medical times Branch daily. clotrimazol 2020-09 Yes [id number] Apply to [facility] e-betametha -09 area(s) 2 ity of sone cream 00:00: (two) [place] 00 times Medical daily. Branch cyclobenzap 2020-09 Yes [id number] TAKE 1 [facility] rine 5 mg -09 TABLET BY ity o f tablet 00:00: MOUTH [place] 00 EVERY 8 Medical HOURS Branch NEEDED econazole 2020-09 Yes [id number] Apply to [facility] nitrate 1 % 09 area(s) 2 ity of cream 00:00: (two) [place] 00 times Medical daily. Branch albuterol 2020-09 Yes [id number] 2{puff} Inhale 2 [facility] (PROAIR 1-09 Puffs ity of HFA) 90 00:00: every 6 [place] mcg/actuati 00 (six) Medical on inhaler hours as Branc h needed for Wheezing or Shortness of Breath. triamcinolo 2020-09 Yes [id number] Apply to [facility] ne 0.025 % - area(s) 3 ity of ointment 00:00: (three) [place] 00 times Medical daily. For Branch itching diltiazem 2020-09 Yes [id number] 120mg Take 1 [facility] n[facility] (CARTIA XT) -09 capsule by it y of 120 mg 24 00:00: mouth 2 [place] hr capsule 00 (two) Medical times Branch daily. cyanocobala 2020-09 Yes [id number] 1000ug 1 mL by [facility] min 1,000 -09 Intramuscu ity of mcg/mL 00:00: lar route [place] injection 00 every 2 Medical (two) Branch weeks. levothyroxi 2020-09 Yes [id number] 50ug Take 1 [facility] ne 50 mcg 1-09 tablet by ity o f tablet 00:00: mouth [place] 00 every Medical morning. Branch fluticasone 2020-09 Yes [id number] 2{puff} Inhale 2 [facility] propionate 1-09 Puffs ity of (FLOVENT 00:00: every 12 [place] HFA) 110 00 (twelve) Medical mcg/actuati hours. Branch on inhaler Rinse mouth after each use. levalbutero 2020-09 Yes [id number] .63mg Inhale [facility] l 0.63 mg/3 1-09 0.63 mg 3 ity of mL 00:00: (three) [place] nebulizer 00 times Medical solution daily as Branch needed for Wheezing or Shortness of Breath. clotrimazol 2020-09 Yes [id number] Apply to [facility] e-betametha -09 area(s) 2 ity of sone cream 00:00: (two) [place] 00 times Medical daily. Branch cyclobenzap 2020-09 Yes [id number] TAKE 1 [facility] rine 5 mg -09 TABLET BY ity o f tablet 00:00: MOUTH [place] 00 EVERY 8 Medical HOURS Branch NEEDED econazole 2020-09 Yes [id number] Apply to [facility] nitrate 1 % -09 area(s) 2 ity of cream 00:00: (two) [place] 00 times Medical daily. Branch albuterol 2020-09 Yes [id number] 2{puff} Inhale 2 [facility] (PROAIR 1-09 Puffs ity of HFA) 90 00:00: every 6 [place] mcg/actuati 00 (six) Medical on inhaler hours as Branc h needed for Wheezing or Shortness of Breath. triamcinolo 2020-09 Yes [id number] Apply to [facility] ne 0.025 % 1-09 area(s) 3 ity of ointment 00:00: (three) [place] 00 times Medical daily. For Branch itching cyanocobala 2020-09 Yes [id number] 1000ug 1 mL by [facility] min 1,000 1-09 Intramuscu ity of mcg/mL 00:00: lar route [place] injection 00 every 2 Medical (two) Branch weeks. levothyroxi 2020-09 Yes [id number] 50ug Take 1 [facility] ne 50 mcg 1-09 tablet by ity o f tablet 00:00: mouth [place] 00 every Medical morning. Branch fluticasone 2020-09 Yes [id number] 2{puff} Inhale 2 [facility] propionate 1-09 Puffs ity of (FLOVENT 00:00: every 12 [place] HFA) 110 00 (twelve) Medical mcg/actuati hours. Branch on inhaler Rinse mouth after each use. levalbutero 2020-09 Yes [id number] .63mg Inhale [facility] l 0.63 mg/3 1-09 0.63 mg 3 ity of mL 00:00: (three) [place] nebulizer 00 times Medical solution daily as Branch needed for Wheezing or Shortness of Breath. clotrimazol 2020-09 Yes [id number] Apply to [facility] e-betametha -09 area(s) 2 ity of sone cream 00:00: (two) [place] 00 times Medical daily. Branch cyclobenzap 2020-09 Yes [id number] TAKE 1 [facility] rine 5 mg 1-09 TABLET BY ity o f tablet 00:00: MOUTH [place] 00 EVERY 8 Medical HOURS Branch NEEDED econazole 2020-09 Yes [id number] Apply to [facility] nitrate 1 % -09 area(s) 2 ity of cream 00:00: (two) [place] 00 times Medical daily. Branch albuterol 2020-09 Yes [id number] 2{puff} Inhale 2 [facility] (PROAIR 1-09 Puffs ity of HFA) 90 00:00: every 6 [place] mcg/actuati 00 (six) Medical on inhaler hours as Branc h needed for Wheezing or Shortness of Breath. triamcinolo 2020-09 Yes [id number] Apply to [facility] ne 0.025 % 1-09 area(s) 3 ity of ointment 00:00: (three) [place] 00 times Medical daily. For Branch itching cyanocobala 2020-09 Yes [id number] 1000ug 1 mL by [facility] min 1,000 1-09 Intramuscu ity of mcg/mL 00:00: lar route [place] injection 00 every 2 Medical (two) Branch weeks. levothyroxi 2020-09 Yes [id number] 50ug Take 1 [facility] ne 50 mcg 1-09 tablet by ity o f tablet 00:00: mouth [place] 00 every Medical morning. Branch fluticasone 2020-09 Yes [id number] 2{puff} Inhale 2 [facility] propionate 1-09 Puffs ity of (FLOVENT 00:00: every 12 [place] HFA) 110 00 (twelve) Medical mcg/actuati hours. Branch on inhaler Rinse mouth after each use. levalbutero 2020-09 Yes [id number] .63mg Inhale [facility] l 0.63 mg/3 1-09 0.63 mg 3 ity of mL 00:00: (three) [place] nebulizer 00 times Medical solution daily as Branch needed for Wheezing or Shortness of Breath. clotrimazol 2020-09 Yes [id number] Apply to [facility] e-betametha 1-09 area(s) 2 ity of sone cream 00:00: (two) [place] 00 times Medical daily. Branch cyclobenzap 2020-09 Yes [id number] TAKE 1 [facility] rine 5 mg -09 TABLET BY ity o f tablet 00:00: MOUTH [place] 00 EVERY 8 Medical HOURS Branch NEEDED econazole 2020-09 Yes [id number] Apply to [facility] nitrate 1 % -09 area(s) 2 ity of cream 00:00: (two) [place] 00 times Medical daily. Branch albuterol 2020-09 Yes [id number] 2{puff} Inhale 2 [facility] (PROAIR 1-09 Puffs ity of HFA) 90 00:00: every 6 [place] mcg/actuati 00 (six) Medical on inhaler hours as Branc h needed for Wheezing or Shortness of Breath. triamcinolo 2020-09 Yes [id number] Apply to [facility] ne 0.025 % 1-09 area(s) 3 ity of ointment 00:00: (three) [place] 00 times Medical daily. For Branch itching cyanocobala 2020-09 Yes [id number] 1000ug 1 mL by [facility] min 1,000 1-09 Intramuscu ity of mcg/mL 00:00: lar route [place] injection 00 every 2 Medical (two) Branch weeks. levothyroxi 2020-09 Yes [id number] 50ug Take 1 [facility] ne 50 mcg 1-09 tablet by ity o f tablet 00:00: mouth [place] 00 every Medical morning. Branch fluticasone 2020-09 Yes [id number] 2{puff} Inhale 2 [facility] propionate 1-09 Puffs ity of (FLOVENT 00:00: every 12 [place] HFA) 110 00 (twelve) Medical mcg/actuati hours. Branch on inhaler Rinse mouth after each use. levalbutero 2020-09 Yes [id number] .63mg Inhale [facility] l 0.63 mg/3 1-09 0.63 mg 3 ity of mL 00:00: (three) [place] nebulizer 00 times Medical solution daily as Branch needed for Wheezing or Shortness of Breath. clotrimazol 2020-09 Yes [id number] Apply to [facility] e-betametha -09 area(s) 2 ity of sone cream 00:00: (two) [place] 00 times Medical daily. Branch cyclobenzap 2020-09 Yes [id number] TAKE 1 [facility] rine 5 mg -09 TABLET BY ity o f tablet 00:00: MOUTH [place] 00 EVERY 8 Medical HOURS Branch NEEDED econazole 2020-09 Yes [id number] Apply to [facility] nitrate 1 % 10-04 area(s) 2 ity of cream 00:00: (two) [place] 00 times Medical daily. Branch albuterol 2020-09 Yes [id number] 2{puff} Inhale 2 [facility] (PROAIR 1-09 Puffs ity of HFA) 90 00:00: every 6 [place] mcg/actuati 00 (six) Medical on inhaler hours as Branc h needed for Wheezing or Shortness of Breath. triamcinolo 2020-09 Yes [id number] Apply to [facility] ne 0.025 % 10-04 area(s) 3 ity of ointment 00:00: (three) [place] 00 times Medical daily. For Branch itching cyanocobala 2020-09 Yes [id number] 1000ug 1 mL by [facility] min 1,000 1-09 Intramuscu ity of mcg/mL 00:00: lar route [place] injection 00 every 2 Medical (two) Branch weeks. levothyroxi 2020-09 Yes [id number] 50ug Take 1 [facility] ne 50 mcg 1-09 tablet by ity o f tablet 00:00: mouth [place] 00 every Medical morning. Branch fluticasone 2020-09 Yes [id number] 2{puff} Inhale 2 [facility] propionate 1-09 Puffs ity of (FLOVENT 00:00: every 12 [place] HFA) 110 00 (twelve) Medical mcg/actuati hours. Branch on inhaler Rinse mouth after each use. levalbutero 2020-09 Yes [id number] .63mg Inhale [facility] l 0.63 mg/3 1-09 0.63 mg 3 ity of mL 00:00: (three) [place] nebulizer 00 times Medical solution daily as Branch needed for Wheezing or Shortness of Breath. clotrimazol 2020-09 Yes [id number] Apply to [facility] e-betametha 09 area(s) 2 ity of sone cream 00:00: (two) [place] 00 times Medical daily. Branch cyclobenzap 2020-09 Yes [id number] TAKE 1 [facility] rine 5 mg 09 TABLET BY ity o f tablet 00:00: MOUTH [place] 00 EVERY 8 Medical HOURS Branch NEEDED econazole 2020-09 Yes [id number] Apply to [facility] nitrate 1 % 10-04 area(s) 2 ity of cream 00:00: (two) [place] 00 times Medical daily. Branch albuterol 2020-09 Yes [id number] 2{puff} Inhale 2 [facility] (PROAIR 1-09 Puffs ity of HFA) 90 00:00: every 6 [place] mcg/actuati 00 (six) Medical on inhaler hours as Branc h needed for Wheezing or Shortness of Breath. triamcinolo 2020-09 Yes [id number] Apply to [facility] ne 0.025 % 10-04 area(s) 3 ity of ointment 00:00: (three) [place] 00 times Medical daily. For Branch itching cyanocobala 2020-09 Yes [id number] 1000ug 1 mL by [facility] min 1,000 -09 Intramuscu ity of mcg/mL 00:00: lar route [place] injection 00 every 2 Medical (two) Branch weeks. levothyroxi 2020-09 Yes [id number] 50ug Take 1 [facility] ne 50 mcg -09 tablet by ity o f tablet 00:00: mouth [place] 00 every Medical morning. Branch fluticasone 2020-09 Yes [id number] 2{puff} Inhale 2 [facility] propionate 1-09 Puffs ity of (FLOVENT 00:00: every 12 [place] HFA) 110 00 (twelve) Medical mcg/actuati hours. Branch on inhaler Rinse mouth after each use. levalbutero 2020-09 Yes [id number] .63mg Inhale [facility] l 0.63 mg/3 1-09 0.63 mg 3 ity of mL 00:00: (three) [place] nebulizer 00 times Medical solution daily as Branch needed for Wheezing or Shortness of Breath. clotrimazol 2020-09 Yes [id number] Apply to [facility] e-betametha 09 area(s) 2 ity of sone cream 00:00: (two) [place] 00 times Medical daily. Branch cyclobenzap 2020-09 Yes [id number] TAKE 1 [facility] rine 5 mg 10-04 TABLET BY ity o f tablet 00:00: MOUTH [place] 00 EVERY 8 Medical HOURS Branch NEEDED econazole 2020-09 Yes [id number] Apply to [facility] nitrate 1 % 10-04 area(s) 2 ity of cream 00:00: (two) [place] 00 times Medical daily. Branch albuterol 2020-09 Yes [id number] 2{puff} Inhale 2 [facility] (PROAIR 1-09 Puffs ity of HFA) 90 00:00: every 6 [place] mcg/actuati 00 (six) Medical on inhaler hours as Branc h needed for Wheezing or Shortness of Breath. triamcinolo 2020-09 Yes [id number] Apply to [facility] ne 0.025 % 10-04 area(s) 3 ity of ointment 00:00: (three) [place] 00 times Medical daily. For Branch itching cyanocobala 2020-09 Yes [id number] 1000ug 1 mL by [facility] min 1,000 -09 Intramuscu ity of mcg/mL 00:00: lar route [place] injection 00 every 2 Medical (two) Branch weeks. levothyroxi 2020-09 Yes [id number] 50ug Take 1 [facility] ne 50 mcg -09 tablet by ity o f tablet 00:00: mouth [place] 00 every Medical morning. Branch fluticasone 2020-09 Yes [id number] 2{puff} Inhale 2 [facility] propionate 1-09 Puffs ity of (FLOVENT 00:00: every 12 [place] HFA) 110 00 (twelve) Medical mcg/actuati hours. Branch on inhaler Rinse mouth after each use. levalbutero 2020-09 Yes [id number] .63mg Inhale [facility] l 0.63 mg/3 1-09 0.63 mg 3 ity of mL 00:00: (three) [place] nebulizer 00 times Medical solution daily as Branch needed for Wheezing or Shortness of Breath. clotrimazol 2020-09 Yes [id number] Apply to [facility] e-betametha -09 area(s) 2 ity of sone cream 00:00: (two) [place] 00 times Medical daily. Branch cyclobenzap 2020-09 Yes [id number] TAKE 1 [facility] rine 5 mg 1-09 TABLET BY ity o f tablet 00:00: MOUTH [place] 00 EVERY 8 Medical HOURS Branch NEEDED econazole 2020-09 Yes [id number] Apply to [facility] nitrate 1 % -09 area(s) 2 ity of cream 00:00: (two) [place] 00 times Medical daily. Branch albuterol 2020-09 Yes [id number] 2{puff} Inhale 2 [facility] (PROAIR 1-09 Puffs ity of HFA) 90 00:00: every 6 [place] mcg/actuati 00 (six) Medical on inhaler hours as Branc h needed for Wheezing or Shortness of Breath. triamcinolo 2020-09 Yes [id number] Apply to [facility] ne 0.025 % 09 area(s) 3 ity of ointment 00:00: (three) [place] 00 times Medical daily. For Branch itching cyanocobala 2020-09 Yes [id number] 1000ug 1 mL by [facility] min 1,000 1-09 Intramuscu ity of mcg/mL 00:00: lar route [place] injection 00 every 2 Medical (two) Branch weeks. levothyroxi 2020-09 Yes [id number] 50ug Take 1 [facility] ne 50 mcg 1-09 tablet by ity o f tablet 00:00: mouth [place] 00 every Medical morning. Branch fluticasone 2020-09 Yes [id number] 2{puff} Inhale 2 [facility] propionate 1-09 Puffs ity of (FLOVENT 00:00: every 12 [place] HFA) 110 00 (twelve) Medical mcg/actuati hours. Branch on inhaler Rinse mouth after each use. levalbutero 2020-09 Yes [id number] .63mg Inhale [facility] l 0.63 mg/3 1-09 0.63 mg 3 ity of mL 00:00: (three) [place] nebulizer 00 times Medical solution daily as Branch needed for Wheezing or Shortness of Breath. clotrimazol 2020-09 Yes [id number] Apply to [facility] e-betametha 09 area(s) 2 ity of sone cream 00:00: (two) [place] 00 times Medical daily. Branch cyclobenzap 2020-09 Yes [id number] TAKE 1 [facility] rine 5 mg 09 TABLET BY ity o f tablet 00:00: MOUTH [place] 00 EVERY 8 Medical HOURS Branch NEEDED econazole 2020-09 Yes [id number] Apply to [facility] nitrate 1 % 10-04 area(s) 2 ity of cream 00:00: (two) [place] 00 times Medical daily. Branch albuterol 2020-09 Yes [id number] 2{puff} Inhale 2 [facility] (PROAIR 1-09 Puffs ity of HFA) 90 00:00: every 6 [place] mcg/actuati 00 (six) Medical on inhaler hours as Branc h needed for Wheezing or Shortness of Breath. triamcinolo 2020-09 Yes [id number] Apply to [facility] ne 0.025 % 10-04 area(s) 3 ity of ointment 00:00: (three) [place] 00 times Medical daily. For Branch itching cyanocobala 2020-09 Yes [id number] 1000ug 1 mL by [facility] min 1,000 -09 Intramuscu ity of mcg/mL 00:00: lar route [place] injection 00 every 2 Medical (two) Branch weeks. levothyroxi 2020-09 Yes [id number] 50ug Take 1 [facility] ne 50 mcg 10-04 tablet by ity o f tablet 00:00: mouth [place] 00 every Medical morning. Branch fluticasone 2020-09 Yes [id number] 2{puff} Inhale 2 [facility] propionate 1-09 Puffs ity of (FLOVENT 00:00: every 12 [place] HFA) 110 00 (twelve) Medical mcg/actuati hours. Branch on inhaler Rinse mouth after each use. levalbutero 2020-09 Yes [id number] .63mg Inhale [facility] l 0.63 mg/3 1-09 0.63 mg 3 ity of mL 00:00: (three) [place] nebulizer 00 times Medical solution daily as Branch needed for Wheezing or Shortness of Breath. clotrimazol 2020-09 Yes [id number] Apply to [facility] e-betametha -09 area(s) 2 ity of sone cream 00:00: (two) [place] 00 times Medical daily. Branch cyclobenzap 2020-09 Yes [id number] TAKE 1 [facility] rine 5 mg -09 TABLET BY ity o f tablet 00:00: MOUTH [place] 00 EVERY 8 Medical HOURS Branch NEEDED econazole 2020-09 Yes [id number] Apply to [facility] nitrate 1 % -09 area(s) 2 ity of cream 00:00: (two) [place] 00 times Medical daily. Branch albuterol 2020-09 Yes [id number] 2{puff} Inhale 2 [facility] (PROAIR 1-09 Puffs ity of HFA) 90 00:00: every 6 [place] mcg/actuati 00 (six) Medical on inhaler hours as Branc h needed for Wheezing or Shortness of Breath. triamcinolo 2020-09 Yes [id number] Apply to [facility] ne 0.025 % 09 area(s) 3 ity of ointment 00:00: (three) [place] 00 times Medical daily. For Branch itching cyanocobala 2020-09 Yes [id number] 1000ug 1 mL by [facility] min 1,000 1-09 Intramuscu ity of mcg/mL 00:00: lar route [place] injection 00 every 2 Medical (two) Branch weeks. levothyroxi 2020-09 Yes [id number] 50ug Take 1 [facility] ne 50 mcg 09 tablet by ity o f tablet 00:00: mouth [place] 00 every Medical morning. Branch fluticasone 2020-09 Yes [id number] 2{puff} Inhale 2 [facility] propionate 1-09 Puffs ity of (FLOVENT 00:00: every 12 [place] HFA) 110 00 (twelve) Medical mcg/actuati hours. Branch on inhaler Rinse mouth after each use. levalbutero 2020-09 Yes [id number] .63mg Inhale [facility] l 0.63 mg/3 1-09 0.63 mg 3 ity of mL 00:00: (three) [place] nebulizer 00 times Medical solution daily as Branch needed for Wheezing or Shortness of Breath. clotrimazol 2020-09 Yes [id number] Apply to [facility] e-betametha -09 area(s) 2 ity of sone cream 00:00: (two) [place] 00 times Medical daily. Branch cyclobenzap 2020-09 Yes [id number] TAKE 1 [facility] rine 5 mg 1-09 TABLET BY ity o f tablet 00:00: MOUTH [place] 00 EVERY 8 Medical HOURS Branch NEEDED econazole 2020-09 Yes [id number] Apply to [facility] nitrate 1 % -09 area(s) 2 ity of cream 00:00: (two) [place] 00 times Medical daily. Branch albuterol 2020-09 Yes [id number] 2{puff} Inhale 2 [facility] (PROAIR 1-09 Puffs ity of HFA) 90 00:00: every 6 [place] mcg/actuati 00 (six) Medical on inhaler hours as Branc h needed for Wheezing or Shortness of Breath. triamcinolo 2020-09 Yes [id number] Apply to [facility] ne 0.025 % 10-04 area(s) 3 ity of ointment 00:00: (three) [place] 00 times Medical daily. For Branch itching cyanocobala 2020-09 Yes [id number] 1000ug 1 mL by [facility] min 1,000 1-09 Intramuscu ity of mcg/mL 00:00: lar route [place] injection 00 every 2 Medical (two) Branch weeks. levothyroxi 2020-09 Yes [id number] 50ug Take 1 [facility] ne 50 mcg -09 tablet by ity o f tablet 00:00: mouth [place] 00 every Medical morning. Branch fluticasone 2020-09 Yes [id number] 2{puff} Inhale 2 [facility] propionate 1-09 Puffs ity of (FLOVENT 00:00: every 12 [place] HFA) 110 00 (twelve) Medical mcg/actuati hours. Branch on inhaler Rinse mouth after each use. levalbutero 2020-09 Yes [id number] .63mg Inhale [facility] l 0.63 mg/3 1-09 0.63 mg 3 ity of mL 00:00: (three) [place] nebulizer 00 times Medical solution daily as Branch needed for Wheezing or Shortness of Breath. clotrimazol 2020-09 Yes [id number] Apply to [facility] e-betametha -09 area(s) 2 ity of sone cream 00:00: (two) [place] 00 times Medical daily. Branch cyclobenzap 2020-09 Yes [id number] TAKE 1 [facility] rine 5 mg -09 TABLET BY ity o f tablet 00:00: MOUTH [place] 00 EVERY 8 Medical HOURS Branch NEEDED econazole 2020-09 Yes [id number] Apply to [facility] nitrate 1 % 09 area(s) 2 ity of cream 00:00: (two) [place] 00 times Medical daily. Branch albuterol 2020-09 Yes [id number] 2{puff} Inhale 2 [facility] (PROAIR 1-09 Puffs ity of HFA) 90 00:00: every 6 [place] mcg/actuati 00 (six) Medical on inhaler hours as Branc h needed for Wheezing or Shortness of Breath. triamcinolo 2020-09 Yes [id number] Apply to [facility] ne 0.025 % 10-04 area(s) 3 ity of ointment 00:00: (three) [place] 00 times Medical daily. For Branch itching cyanocobala 2020-09 Yes [id number] 1000ug 1 mL by [facility] min 1,000 09 Intramuscu ity of mcg/mL 00:00: lar route [place] injection 00 every 2 Medical (two) Branch weeks. levothyroxi 2020-09 Yes [id number] 50ug Take 1 [facility] ne 50 mcg -09 tablet by ity o f tablet 00:00: mouth [place] 00 every Medical morning. Branch fluticasone 2020-09 Yes [id number] 2{puff} Inhale 2 [facility] propionate 1-09 Puffs ity of (FLOVENT 00:00: every 12 [place] HFA) 110 00 (twelve) Medical mcg/actuati hours. Branch on inhaler Rinse mouth after each use. levalbutero 2020-09 Yes [id number] .63mg Inhale [facility] l 0.63 mg/3 1-09 0.63 mg 3 ity of mL 00:00: (three) [place] nebulizer 00 times Medical solution daily as Branch needed for Wheezing or Shortness of Breath. clotrimazol 2020-09 Yes [id number] Apply to [facility] e-betametha -09 area(s) 2 ity of sone cream 00:00: (two) [place] 00 times Medical daily. Branch cyclobenzap 2020-09 Yes [id number] TAKE 1 [facility] rine 5 mg 1-09 TABLET BY ity o f tablet 00:00: MOUTH [place] 00 EVERY 8 Medical HOURS Branch NEEDED econazole 2020-09 Yes [id number] Apply to [facility] nitrate 1 % -09 area(s) 2 ity of cream 00:00: (two) [place] 00 times Medical daily. Branch albuterol 2020-09 Yes [id number] 2{puff} Inhale 2 [facility] (PROAIR 1-09 Puffs ity of HFA) 90 00:00: every 6 [place] mcg/actuati 00 (six) Medical on inhaler hours as Branc h needed for Wheezing or Shortness of Breath. triamcinolo 2020-09 Yes [id number] Apply to [facility] ne 0.025 % 10-04 area(s) 3 ity of ointment 00:00: (three) [place] 00 times Medical daily. For Branch itching cyanocobala 2020-09 Yes [id number] 1000ug 1 mL by [facility] min 1,000 -09 Intramuscu ity of mcg/mL 00:00: lar route [place] injection 00 every 2 Medical (two) Branch weeks. levothyroxi 2020-09 Yes [id number] 50ug Take 1 [facility] ne 50 mcg -09 tablet by ity o f tablet 00:00: mouth [place] 00 every Medical morning. Branch fluticasone 2020-09 Yes [id number] 2{puff} Inhale 2 [facility] propionate 1-09 Puffs ity of (FLOVENT 00:00: every 12 [place] HFA) 110 00 (twelve) Medical mcg/actuati hours. Branch on inhaler Rinse mouth after each use. levalbutero 2020-09 Yes [id number] .63mg Inhale [facility] l 0.63 mg/3 1-09 0.63 mg 3 ity of mL 00:00: (three) [place] nebulizer 00 times Medical solution daily as Branch needed for Wheezing or Shortness of Breath. clotrimazol 2020-09 Yes [id number] Apply to [facility] e-betametha -09 area(s) 2 ity of sone cream 00:00: (two) [place] 00 times Medical daily. Branch cyclobenzap 2020-09 Yes [id number] TAKE 1 [facility] rine 5 mg 1-09 TABLET BY ity o f tablet 00:00: MOUTH [place] 00 EVERY 8 Medical HOURS Branch NEEDED econazole 2020-09 Yes [id number] Apply to [facility] nitrate 1 % 1-09 area(s) 2 ity of cream 00:00: (two) [place] 00 times Medical daily. Branch albuterol 2020-09 Yes [id number] 2{puff} Inhale 2 [facility] (PROAIR 1-09 Puffs ity of HFA) 90 00:00: every 6 [place] mcg/actuati 00 (six) Medical on inhaler hours as Branc h needed for Wheezing or Shortness of Breath. triamcinolo 2020-09 Yes [id number] Apply to [facility] ne 0.025 % -09 area(s) 3 ity of ointment 00:00: (three) [place] 00 times Medical daily. For Branch itching cyanocobala 2020-09 Yes [id number] 1000ug 1 mL by [facility] min 1,000 1-09 Intramuscu ity of mcg/mL 00:00: lar route [place] injection 00 every 2 Medical (two) Branch weeks. levothyroxi 2020-09 Yes [id number] 50ug Take 1 [facility] ne 50 mcg 1-09 tablet by ity o f tablet 00:00: mouth [place] 00 every Medical morning. Branch fluticasone 2020-09 Yes [id number] 2{puff} Inhale 2 [facility] propionate 1-09 Puffs ity of (FLOVENT 00:00: every 12 [place] HFA) 110 00 (twelve) Medical mcg/actuati hours. Branch on inhaler Rinse mouth after each use. levalbutero 2020-09 Yes [id number] .63mg Inhale [facility] l 0.63 mg/3 1-09 0.63 mg 3 ity of mL 00:00: (three) [place] nebulizer 00 times Medical solution daily as Branch needed for Wheezing or Shortness of Breath. clotrimazol 2020-09 Yes [id number] Apply to [facility] e-betametha 1-09 area(s) 2 ity of sone cream 00:00: (two) [place] 00 times Medical daily. Branch cyclobenzap 2020-09 Yes [id number] TAKE 1 [facility] rine 5 mg 1-09 TABLET BY ity o f tablet 00:00: MOUTH [place] 00 EVERY 8 Medical HOURS Branch NEEDED econazole 2020-09 Yes [id number] Apply to [facility] nitrate 1 % -09 area(s) 2 ity of cream 00:00: (two) [place] 00 times Medical daily. Branch albuterol 2020-09 Yes [id number] 2{puff} Inhale 2 [facility] (PROAIR 1-09 Puffs ity of HFA) 90 00:00: every 6 [place] mcg/actuati 00 (six) Medical on inhaler hours as Branc h needed for Wheezing or Shortness of Breath. triamcinolo 2020-09 Yes [id number] Apply to [facility] ne 0.025 % - area(s) 3 ity of ointment 00:00: (three) [place] 00 times Medical daily. For Branch itching cyanocobala 2020-09 Yes [id number] 1000ug 1 mL by [facility] min 1,000 -09 Intramuscu ity of mcg/mL 00:00: lar route [place] injection 00 every 2 Medical (two) Branch weeks. levothyroxi 2020-09 Yes [id number] 50ug Take 1 [facility] ne 50 mcg -09 tablet by ity o f tablet 00:00: mouth [place] 00 every Medical morning. Branch fluticasone 2020-09 Yes [id number] 2{puff} Inhale 2 [facility] propionate 1-09 Puffs ity of (FLOVENT 00:00: every 12 [place] HFA) 110 00 (twelve) Medical mcg/actuati hours. Branch on inhaler Rinse mouth after each use. levalbutero 2020-09 Yes [id number] .63mg Inhale [facility] l 0.63 mg/3 -09 0.63 mg 3 ity of mL 00:00: (three) [place] nebulizer 00 times Medical solution daily as Branch needed for Wheezing or Shortness of Breath. clotrimazol 2020-09 Yes [id number] Apply to [facility] e-betametha -09 area(s) 2 ity of sone cream 00:00: (two) [place] 00 times Medical daily. Branch cyclobenzap 2020-09 Yes [id number] TAKE 1 [facility] rine 5 mg 1-09 TABLET BY ity o f tablet 00:00: MOUTH [place] 00 EVERY 8 Medical HOURS Branch NEEDED econazole 2020-09 Yes [id number] Apply to [facility] nitrate 1 % 1-09 area(s) 2 ity of cream 00:00: (two) [place] 00 times Medical daily. Branch albuterol 2020-09 Yes [id number] 2{puff} Inhale 2 [facility] (PROAIR 1-09 Puffs ity of HFA) 90 00:00: every 6 [place] mcg/actuati 00 (six) Medical on inhaler hours as Branc h needed for Wheezing or Shortness of Breath. triamcinolo 2020-09 Yes [id number] Apply to [facility] ne 0.025 % -09 area(s) 3 ity of ointment 00:00: (three) [place] 00 times Medical daily. For Branch itching cyanocobala 2020-09 Yes [id number] 1000ug 1 mL by [facility] min 1,000 -09 Intramuscu ity of mcg/mL 00:00: lar route [place] injection 00 every 2 Medical (two) Branch weeks. levothyroxi 2020-09 Yes [id number] 50ug Take 1 [facility] ne 50 mcg -09 tablet by ity o f tablet 00:00: mouth [place] 00 every Medical morning. Branch fluticasone 2020-09 Yes [id number] 2{puff} Inhale 2 [facility] propionate 1-09 Puffs ity of (FLOVENT 00:00: every 12 [place] HFA) 110 00 (twelve) Medical mcg/actuati hours. Branch on inhaler Rinse mouth after each use. levalbutero 2020-09 Yes [id number] .63mg Inhale [facility] l 0.63 mg/3 1-09 0.63 mg 3 ity of mL 00:00: (three) [place] nebulizer 00 times Medical solution daily as Branch needed for Wheezing or Shortness of Breath. clotrimazol 2020-09 Yes [id number] Apply to [facility] e-betametha -09 area(s) 2 ity of sone cream 00:00: (two) [place] 00 times Medical daily. Branch cyclobenzap 2020-09 Yes [id number] TAKE 1 [facility] rine 5 mg -09 TABLET BY ity o f tablet 00:00: MOUTH [place] 00 EVERY 8 Medical HOURS Branch NEEDED econazole 2020-09 Yes [id number] Apply to [facility] nitrate 1 % -09 area(s) 2 ity of cream 00:00: (two) [place] 00 times Medical daily. Branch albuterol 2020-09 Yes [id number] 2{puff} Inhale 2 [facility] (PROAIR 1-09 Puffs ity of HFA) 90 00:00: every 6 [place] mcg/actuati 00 (six) Medical on inhaler hours as Branc h needed for Wheezing or Shortness of Breath. triamcinolo 2020-09 Yes [id number] Apply to [facility] ne 0.025 % 1-09 area(s) 3 ity of ointment 00:00: (three) [place] 00 times Medical daily. For Branch itching cyanocobala 2020-09 Yes [id number] 1000ug 1 mL by [facility] min 1,000 -09 Intramuscu ity of mcg/mL 00:00: lar route [place] injection 00 every 2 Medical (two) Branch weeks. levothyroxi 2020-09 Yes [id number] 50ug Take 1 [facility] ne 50 mcg -09 tablet by ity o f tablet 00:00: mouth [place] 00 every Medical morning. Branch fluticasone 2020-09 Yes [id number] 2{puff} Inhale 2 [facility] propionate 1-09 Puffs ity of (FLOVENT 00:00: every 12 [place] HFA) 110 00 (twelve) Medical mcg/actuati hours. Branch on inhaler Rinse mouth after each use. levalbutero 2020-09 Yes [id number] .63mg Inhale [facility] l 0.63 mg/3 1-09 0.63 mg 3 ity of mL 00:00: (three) [place] nebulizer 00 times Medical solution daily as Branch needed for Wheezing or Shortness of Breath. clotrimazol 2020-09 Yes [id number] Apply to [facility] e-betametha -09 area(s) 2 ity of sone cream 00:00: (two) [place] 00 times Medical daily. Branch cyclobenzap 2020-09 Yes [id number] TAKE 1 [facility] rine 5 mg 1-09 TABLET BY ity o f tablet 00:00: MOUTH [place] 00 EVERY 8 Medical HOURS Branch NEEDED econazole 2020-09 Yes [id number] Apply to [facility] nitrate 1 % -09 area(s) 2 ity of cream 00:00: (two) [place] 00 times Medical daily. Branch albuterol 2020-09 Yes [id number] 2{puff} Inhale 2 [facility] (PROAIR 1-09 Puffs ity of HFA) 90 00:00: every 6 [place] mcg/actuati 00 (six) Medical on inhaler hours as Branc h needed for Wheezing or Shortness of Breath. triamcinolo 2020-09 Yes [id number] Apply to [facility] ne 0.025 % 10-04 area(s) 3 ity of ointment 00:00: (three) [place] 00 times Medical daily. For Branch itching cyanocobala 2020-09 Yes [id number] 1000ug 1 mL by [facility] min 1,000 09 Intramuscu ity of mcg/mL 00:00: lar route [place] injection 00 every 2 Medical (two) Branch weeks. levothyroxi 2020-09 Yes [id number] 50ug Take 1 [facility] ne 50 mcg -09 tablet by ity o f tablet 00:00: mouth [place] 00 every Medical morning. Branch fluticasone 2020-09 Yes [id number] 2{puff} Inhale 2 [facility] propionate -09 Puffs ity of (FLOVENT 00:00: every 12 [place] HFA) 110 00 (twelve) Medical mcg/actuati hours. Branch on inhaler Rinse mouth after each use. levalbutero 2020-09 Yes [id number] .63mg Inhale [facility] l 0.63 mg/3 -09 0.63 mg 3 ity of mL 00:00: (three) [place] nebulizer 00 times Medical solution daily as Branch needed for Wheezing or Shortness of Breath. clotrimazol 2020-09 Yes [id number] Apply to [facility] e-betametha 10-04 area(s) 2 ity of sone cream 00:00: (two) [place] 00 times Medical daily. Branch cyclobenzap 2020-09 Yes [id number] TAKE 1 [facility] rine 5 mg -09 TABLET BY ity o f tablet 00:00: MOUTH [place] 00 EVERY 8 Medical HOURS Branch NEEDED econazole 2020-09 Yes [id number] Apply to [facility] nitrate 1 % -09 area(s) 2 ity of cream 00:00: (two) [place] 00 times Medical daily. Branch albuterol 2020-09 Yes [id number] 2{puff} Inhale 2 [facility] (PROAIR 1-09 Puffs ity of HFA) 90 00:00: every 6 [place] mcg/actuati 00 (six) Medical on inhaler hours as Branc h needed for Wheezing or Shortness of Breath. triamcinolo 2020-09 Yes [id number] Apply to [facility] ne 0.025 % 1-09 area(s) 3 ity of ointment 00:00: (three) [place] 00 times Medical daily. For Branch itching cyanocobala 2020-09 Yes [id number] 1000ug 1 mL by [facility] min 1,000 -09 Intramuscu ity of mcg/mL 00:00: lar route [place] injection 00 every 2 Medical (two) Branch weeks. levothyroxi 2020-09 Yes [id number] 50ug Take 1 [facility] ne 50 mcg 1-09 tablet by ity o f tablet 00:00: mouth [place] 00 every Medical morning. Branch fluticasone 2020-09 Yes [id number] 2{puff} Inhale 2 [facility] propionate 1-09 Puffs ity of (FLOVENT 00:00: every 12 [place] HFA) 110 00 (twelve) Medical mcg/actuati hours. Branch on inhaler Rinse mouth after each use. levalbutero 2020-09 Yes [id number] .63mg Inhale [facility] l 0.63 mg/3 1-09 0.63 mg 3 ity of mL 00:00: (three) [place] nebulizer 00 times Medical solution daily as Branch needed for Wheezing or Shortness of Breath. clotrimazol 2020-09 Yes [id number] Apply to [facility] e-betametha 09 area(s) 2 ity of sone cream 00:00: (two) [place] 00 times Medical daily. Branch cyclobenzap 2020-09 Yes [id number] TAKE 1 [facility] rine 5 mg -09 TABLET BY ity o f tablet 00:00: MOUTH [place] 00 EVERY 8 Medical HOURS Branch NEEDED econazole 2020-09 Yes [id number] Apply to [facility] nitrate 1 % -09 area(s) 2 ity of cream 00:00: (two) [place] 00 times Medical daily. Branch albuterol 2020-09 Yes [id number] 2{puff} Inhale 2 [facility] (PROAIR 1-09 Puffs ity of HFA) 90 00:00: every 6 [place] mcg/actuati 00 (six) Medical on inhaler hours as Branc h needed for Wheezing or Shortness of Breath. triamcinolo 2020-09 Yes [id number] Apply to [facility] ne 0.025 % -09 area(s) 3 ity of ointment 00:00: (three) [place] 00 times Medical daily. For Branch itching cyanocobala 2020-09 Yes [id number] 1000ug 1 mL by [facility] min 1,000 -09 Intramuscu ity of mcg/mL 00:00: lar route [place] injection 00 every 2 Medical (two) Branch weeks. levothyroxi 2020-09 Yes [id number] 50ug Take 1 [facility] ne 50 mcg -09 tablet by ity o f tablet 00:00: mouth [place] 00 every Medical morning. Branch fluticasone 2020-09 Yes [id number] 2{puff} Inhale 2 [facility] propionate -09 Puffs ity of (FLOVENT 00:00: every 12 [place] HFA) 110 00 (twelve) Medical mcg/actuati hours. Branch on inhaler Rinse mouth after each use. levalbutero 2020-09 Yes [id number] .63mg Inhale [facility] l 0.63 mg/3 -09 0.63 mg 3 ity of mL 00:00: (three) [place] nebulizer 00 times Medical solution daily as Branch needed for Wheezing or Shortness of Breath. clotrimazol 2020-09 Yes [id number] Apply to [facility] e-betametha 10-04 area(s) 2 ity of sone cream 00:00: (two) [place] 00 times Medical daily. Branch cyclobenzap 2020-09 Yes [id number] TAKE 1 [facility] rine 5 mg -09 TABLET BY ity o f tablet 00:00: MOUTH [place] 00 EVERY 8 Medical HOURS Branch NEEDED econazole 2020-09 Yes [id number] Apply to [facility] nitrate 1 % 09 area(s) 2 ity of cream 00:00: (two) [place] 00 times Medical daily. Branch albuterol 2020-09 Yes [id number] 2{puff} Inhale 2 [facility] (PROAIR 1-09 Puffs ity of HFA) 90 00:00: every 6 [place] mcg/actuati 00 (six) Medical on inhaler hours as Branc h needed for Wheezing or Shortness of Breath. triamcinolo 2020-09 Yes [id number] Apply to [facility] ne 0.025 % -09 area(s) 3 ity of ointment 00:00: (three) [place] 00 times Medical daily. For Branch itching cyanocobala 2020-09 Yes [id number] 1000ug 1 mL by [facility] min 1,000 -09 Intramuscu ity of mcg/mL 00:00: lar route [place] injection 00 every 2 Medical (two) Branch weeks. levothyroxi 2020-09 Yes [id number] 50ug Take 1 [facility] ne 50 mcg -09 tablet by ity o f tablet 00:00: mouth [place] 00 every Medical morning. Branch fluticasone 2020-09 Yes [id number] 2{puff} Inhale 2 [facility] propionate 1-09 Puffs ity of (FLOVENT 00:00: every 12 [place] HFA) 110 00 (twelve) Medical mcg/actuati hours. Branch on inhaler Rinse mouth after each use. levalbutero 2020-09 Yes [id number] .63mg Inhale [facility] l 0.63 mg/3 -09 0.63 mg 3 ity of mL 00:00: (three) [place] nebulizer 00 times Medical solution daily as Branch needed for Wheezing or Shortness of Breath. clotrimazol 2020-09 Yes [id number] Apply to [facility] e-betametha 10-04 area(s) 2 ity of sone cream 00:00: (two) [place] 00 times Medical daily. Branch cyclobenzap 2020-09 Yes [id number] TAKE 1 [facility] rine 5 mg -09 TABLET BY ity o f tablet 00:00: MOUTH [place] 00 EVERY 8 Medical HOURS Branch NEEDED econazole 2020-09 Yes [id number] Apply to [facility] nitrate 1 % 09 area(s) 2 ity of cream 00:00: (two) [place] 00 times Medical daily. Branch albuterol 2020-09 Yes [id number] 2{puff} Inhale 2 [facility] (PROAIR 1-09 Puffs ity of HFA) 90 00:00: every 6 [place] mcg/actuati 00 (six) Medical on inhaler hours as Branc h needed for Wheezing or Shortness of Breath. triamcinolo 2020-09 Yes [id number] Apply to [facility] ne 0.025 % -09 area(s) 3 ity of ointment 00:00: (three) [place] 00 times Medical daily. For Branch itching cyanocobala 2020-09 Yes [id number] 1000ug 1 mL by [facility] min 1,000 1-09 Intramuscu ity of mcg/mL 00:00: lar route [place] injection 00 every 2 Medical (two) Branch weeks. levothyroxi 2020-09 Yes [id number] 50ug Take 1 [facility] ne 50 mcg 1-09 tablet by ity o f tablet 00:00: mouth [place] 00 every Medical morning. Branch fluticasone 2020-09 Yes [id number] 2{puff} Inhale 2 [facility] propionate 1-09 Puffs ity of (FLOVENT 00:00: every 12 [place] HFA) 110 00 (twelve) Medical mcg/actuati hours. Branch on inhaler Rinse mouth after each use. levalbutero 2020-09 Yes [id number] .63mg Inhale [facility] l 0.63 mg/3 1-09 0.63 mg 3 ity of mL 00:00: (three) [place] nebulizer 00 times Medical solution daily as Branch needed for Wheezing or Shortness of Breath. clotrimazol 2020-09 Yes [id number] Apply to [facility] e-betametha 1-09 area(s) 2 ity of sone cream 00:00: (two) [place] 00 times Medical daily. Branch cyclobenzap 2020-09 Yes [id number] TAKE 1 [facility] rine 5 mg 1-09 TABLET BY ity o f tablet 00:00: MOUTH [place] 00 EVERY 8 Medical HOURS Branch NEEDED econazole 2020-09 Yes [id number] Apply to [facility] nitrate 1 % 1-09 area(s) 2 ity of cream 00:00: (two) [place] 00 times Medical daily. Branch albuterol 2020-09 Yes [id number] 2{puff} Inhale 2 [facility] (PROAIR 1-09 Puffs ity of HFA) 90 00:00: every 6 [place] mcg/actuati 00 (six) Medical on inhaler hours as Branc h needed for Wheezing or Shortness of Breath. triamcinolo 2020-09 Yes [id number] Apply to [facility] ne 0.025 % 1-09 area(s) 3 ity of ointment 00:00: (three) [place] 00 times Medical daily. For Branch itching cyanocobala 2020-09 Yes [id number] 1000ug 1 mL by [facility] min 1,000 1-09 Intramuscu ity of mcg/mL 00:00: lar route [place] injection 00 every 2 Medical (two) Branch weeks. levothyroxi 2020-09 Yes [id number] 50ug Take 1 [facility] ne 50 mcg 1-09 tablet by ity o f tablet 00:00: mouth [place] 00 every Medical morning. Branch fluticasone 2020-09 Yes [id number] 2{puff} Inhale 2 [facility] propionate 1-09 Puffs ity of (FLOVENT 00:00: every 12 [place] HFA) 110 00 (twelve) Medical mcg/actuati hours. Branch on inhaler Rinse mouth after each use. levalbutero 2020-09 Yes [id number] .63mg Inhale [facility] l 0.63 mg/3 1-09 0.63 mg 3 ity of mL 00:00: (three) [place] nebulizer 00 times Medical solution daily as Branch needed for Wheezing or Shortness of Breath. clotrimazol 2020-09 Yes [id number] Apply to [facility] e-betametha -09 area(s) 2 ity of sone cream 00:00: (two) [place] 00 times Medical daily. Branch cyclobenzap 2020-09 Yes [id number] TAKE 1 [facility] rine 5 mg -09 TABLET BY ity o f tablet 00:00: MOUTH [place] 00 EVERY 8 Medical HOURS Branch NEEDED econazole 2020-09 Yes [id number] Apply to [facility] nitrate 1 % -09 area(s) 2 ity of cream 00:00: (two) [place] 00 times Medical daily. Branch albuterol 2020-09 Yes [id number] 2{puff} Inhale 2 [facility] (PROAIR 1-09 Puffs ity of HFA) 90 00:00: every 6 [place] mcg/actuati 00 (six) Medical on inhaler hours as Branc h needed for Wheezing or Shortness of Breath. triamcinolo 2020-09 Yes [id number] Apply to [facility] ne 0.025 % 1-09 area(s) 3 ity of ointment 00:00: (three) [place] 00 times Medical daily. For Branch itching cyanocobala 2020-09 Yes [id number] 1000ug 1 mL by [facility] min 1,000 1-09 Intramuscu ity of mcg/mL 00:00: lar route [place] injection 00 every 2 Medical (two) Branch weeks. levothyroxi 2020-09 Yes [id number] 50ug Take 1 [facility] ne 50 mcg 1-09 tablet by ity o f tablet 00:00: mouth [place] 00 every Medical morning. Branch fluticasone 2020-09 Yes [id number] 2{puff} Inhale 2 [facility] propionate 1-09 Puffs ity of (FLOVENT 00:00: every 12 [place] HFA) 110 00 (twelve) Medical mcg/actuati hours. Branch on inhaler Rinse mouth after each use. levalbutero 2020-09 Yes [id number] .63mg Inhale [facility] l 0.63 mg/3 1-09 0.63 mg 3 ity of mL 00:00: (three) [place] nebulizer 00 times Medical solution daily as Branch needed for Wheezing or Shortness of Breath. clotrimazol 2020-09 Yes [id number] Apply to [facility] e-betametha -09 area(s) 2 ity of sone cream 00:00: (two) [place] 00 times Medical daily. Branch cyclobenzap 2020-09 Yes [id number] TAKE 1 [facility] rine 5 mg 1-09 TABLET BY ity o f tablet 00:00: MOUTH [place] 00 EVERY 8 Medical HOURS Branch NEEDED econazole 2020-09 Yes [id number] Apply to [facility] nitrate 1 % -09 area(s) 2 ity of cream 00:00: (two) [place] 00 times Medical daily. Branch albuterol 2020-09 Yes [id number] 2{puff} Inhale 2 [facility] (PROAIR 1-09 Puffs ity of HFA) 90 00:00: every 6 [place] mcg/actuati 00 (six) Medical on inhaler hours as Branc h needed for Wheezing or Shortness of Breath. triamcinolo 2020-09 Yes [id number] Apply to [facility] ne 0.025 % 1-09 area(s) 3 ity of ointment 00:00: (three) [place] 00 times Medical daily. For Branch itching cyanocobala 2020-09 Yes [id number] 1000ug 1 mL by [facility] min 1,000 1-09 Intramuscu ity of mcg/mL 00:00: lar route [place] injection 00 every 2 Medical (two) Branch weeks. levothyroxi 2020-09 Yes [id number] 50ug Take 1 [facility] ne 50 mcg 1-09 tablet by ity o f tablet 00:00: mouth [place] 00 every Medical morning. Branch fluticasone 2020-09 Yes [id number] 2{puff} Inhale 2 [facility] propionate 1-09 Puffs ity of (FLOVENT 00:00: every 12 [place] HFA) 110 00 (twelve) Medical mcg/actuati hours. Branch on inhaler Rinse mouth after each use. levalbutero 2020-09 Yes [id number] .63mg Inhale [facility] l 0.63 mg/3 1-09 0.63 mg 3 ity of mL 00:00: (three) [place] nebulizer 00 times Medical solution daily as Branch needed for Wheezing or Shortness of Breath. clotrimazol 2020-09 Yes [id number] Apply to [facility] e-betametha 1-09 area(s) 2 ity of sone cream 00:00: (two) [place] 00 times Medical daily. Branch cyclobenzap 2020-09 Yes [id number] TAKE 1 [facility] rine 5 mg 1-09 TABLET BY ity o f tablet 00:00: MOUTH [place] 00 EVERY 8 Medical HOURS Branch NEEDED econazole 2020-09 Yes [id number] Apply to [facility] nitrate 1 % -09 area(s) 2 ity of cream 00:00: (two) [place] 00 times Medical daily. Branch albuterol 2020-09 Yes [id number] 2{puff} Inhale 2 [facility] (PROAIR 1-09 Puffs ity of HFA) 90 00:00: every 6 [place] mcg/actuati 00 (six) Medical on inhaler hours as Branc h needed for Wheezing or Shortness of Breath. triamcinolo 2020-09 Yes [id number] Apply to [facility] ne 0.025 % 1-09 area(s) 3 ity of ointment 00:00: (three) [place] 00 times Medical daily. For Branch itching cyanocobala 2020-09 Yes [id number] 1000ug 1 mL by [facility] min 1,000 1-09 Intramuscu ity of mcg/mL 00:00: lar route [place] injection 00 every 2 Medical (two) Branch weeks. levothyroxi 2020-09 Yes [id number] 50ug Take 1 [facility] ne 50 mcg 1-09 tablet by ity o f tablet 00:00: mouth [place] 00 every Medical morning. Branch fluticasone 2020-09 Yes [id number] 2{puff} Inhale 2 [facility] propionate 1-09 Puffs ity of (FLOVENT 00:00: every 12 [place] HFA) 110 00 (twelve) Medical mcg/actuati hours. Branch on inhaler Rinse mouth after each use. levalbutero 2020-09 Yes [id number] .63mg Inhale [facility] l 0.63 mg/3 1-09 0.63 mg 3 ity of mL 00:00: (three) [place] nebulizer 00 times Medical solution daily as Branch needed for Wheezing or Shortness of Breath. clotrimazol 2020-09 Yes [id number] Apply to [facility] e-betametha -09 area(s) 2 ity of sone cream 00:00: (two) [place] 00 times Medical daily. Branch cyclobenzap 2020-09 Yes [id number] TAKE 1 [facility] rine 5 mg -09 TABLET BY ity o f tablet 00:00: MOUTH [place] 00 EVERY 8 Medical HOURS Branch NEEDED econazole 2020-09 Yes [id number] Apply to [facility] nitrate 1 % -09 area(s) 2 ity of cream 00:00: (two) [place] 00 times Medical daily. Branch albuterol 2020-09 Yes [id number] 2{puff} Inhale 2 [facility] (PROAIR 1-09 Puffs ity of HFA) 90 00:00: every 6 [place] mcg/actuati 00 (six) Medical on inhaler hours as Branc h needed for Wheezing or Shortness of Breath. triamcinolo 2020-09 Yes [id number] Apply to [facility] ne 0.025 % 1-09 area(s) 3 ity of ointment 00:00: (three) [place] 00 times Medical daily. For Branch itching cyanocobala 2020-09 Yes [id number] 1000ug 1 mL by [facility] min 1,000 1-09 Intramuscu ity of mcg/mL 00:00: lar route [place] injection 00 every 2 Medical (two) Branch weeks. levothyroxi 2020-09 Yes [id number] 50ug Take 1 [facility] ne 50 mcg 1-09 tablet by ity o f tablet 00:00: mouth [place] 00 every Medical morning. Branch fluticasone 2020-09 Yes [id number] 2{puff} Inhale 2 [facility] propionate 1-09 Puffs ity of (FLOVENT 00:00: every 12 [place] HFA) 110 00 (twelve) Medical mcg/actuati hours. Branch on inhaler Rinse mouth after each use. levalbutero 2020-09 Yes [id number] .63mg Inhale [facility] l 0.63 mg/3 1-09 0.63 mg 3 ity of mL 00:00: (three) [place] nebulizer 00 times Medical solution daily as Branch needed for Wheezing or Shortness of Breath. clotrimazol 2020-09 Yes [id number] Apply to [facility] e-betametha -09 area(s) 2 ity of sone cream 00:00: (two) [place] 00 times Medical daily. Branch cyclobenzap 2020-09 Yes [id number] TAKE 1 [facility] rine 5 mg -09 TABLET BY ity o f tablet 00:00: MOUTH [place] 00 EVERY 8 Medical HOURS Branch NEEDED econazole 2020-09 Yes [id number] Apply to [facility] nitrate 1 % -09 area(s) 2 ity of cream 00:00: (two) [place] 00 times Medical daily. Branch albuterol 2020-09 Yes [id number] 2{puff} Inhale 2 [facility] (PROAIR 1-09 Puffs ity of HFA) 90 00:00: every 6 [place] mcg/actuati 00 (six) Medical on inhaler hours as Branc h needed for Wheezing or Shortness of Breath. triamcinolo 2020-09 Yes [id number] Apply to [facility] ne 0.025 % 1-09 area(s) 3 ity of ointment 00:00: (three) [place] 00 times Medical daily. For Branch itching cyanocobala 2020-09 Yes [id number] 1000ug 1 mL by [facility] min 1,000 1-09 Intramuscu ity of mcg/mL 00:00: lar route [place] injection 00 every 2 Medical (two) Branch weeks. levothyroxi 2020-09 Yes [id number] 50ug Take 1 [facility] ne 50 mcg 1-09 tablet by ity o f tablet 00:00: mouth [place] 00 every Medical morning. Branch fluticasone 2020-09 Yes [id number] 2{puff} Inhale 2 [facility] propionate 1-09 Puffs ity of (FLOVENT 00:00: every 12 [place] HFA) 110 00 (twelve) Medical mcg/actuati hours. Branch on inhaler Rinse mouth after each use. levalbutero 2020-09 Yes [id number] .63mg Inhale [facility] l 0.63 mg/3 1-09 0.63 mg 3 ity of mL 00:00: (three) [place] nebulizer 00 times Medical solution daily as Branch needed for Wheezing or Shortness of Breath. clotrimazol 2020-09 Yes [id number] Apply to [facility] e-betametha 1-09 area(s) 2 ity of sone cream 00:00: (two) [place] 00 times Medical daily. Branch cyclobenzap 2020-09 Yes [id number] TAKE 1 [facility] rine 5 mg -09 TABLET BY ity o f tablet 00:00: MOUTH [place] 00 EVERY 8 Medical HOURS Branch NEEDED econazole 2020-09 Yes [id number] Apply to [facility] nitrate 1 % -09 area(s) 2 ity of cream 00:00: (two) [place] 00 times Medical daily. Branch albuterol 2020-09 Yes [id number] 2{puff} Inhale 2 [facility] (PROAIR 1-09 Puffs ity of HFA) 90 00:00: every 6 [place] mcg/actuati 00 (six) Medical on inhaler hours as Branc h needed for Wheezing or Shortness of Breath. triamcinolo 2020-09 Yes [id number] Apply to [facility] ne 0.025 % 1-09 area(s) 3 ity of ointment 00:00: (three) [place] 00 times Medical daily. For Branch itching cyanocobala 2020-09 Yes [id number] 1000ug 1 mL by [facility] min 1,000 1-09 Intramuscu ity of mcg/mL 00:00: lar route [place] injection 00 every 2 Medical (two) Branch weeks. levothyroxi 2020-09 Yes [id number] 50ug Take 1 [facility] ne 50 mcg -09 tablet by ity o f tablet 00:00: mouth [place] 00 every Medical morning. Branch fluticasone 2020-09 Yes [id number] 2{puff} Inhale 2 [facility] propionate 1-09 Puffs ity of (FLOVENT 00:00: every 12 [place] HFA) 110 00 (twelve) Medical mcg/actuati hours. Branch on inhaler Rinse mouth after each use. levalbutero 2020-09 Yes [id number] .63mg Inhale [facility] l 0.63 mg/3 1-09 0.63 mg 3 ity of mL 00:00: (three) [place] nebulizer 00 times Medical solution daily as Branch needed for Wheezing or Shortness of Breath. clotrimazol 2020-09 Yes [id number] Apply to [facility] e-betametha -09 area(s) 2 ity of sone cream 00:00: (two) [place] 00 times Medical daily. Branch cyclobenzap 2020-09 Yes [id number] TAKE 1 [facility] rine 5 mg -09 TABLET BY ity o f tablet 00:00: MOUTH [place] 00 EVERY 8 Medical HOURS Branch NEEDED econazole 2020-09 Yes [id number] Apply to [facility] nitrate 1 % 10-04 area(s) 2 ity of cream 00:00: (two) [place] 00 times Medical daily. Branch albuterol 2020-09 Yes [id number] 2{puff} Inhale 2 [facility] (PROAIR 1-09 Puffs ity of HFA) 90 00:00: every 6 [place] mcg/actuati 00 (six) Medical on inhaler hours as Branc h needed for Wheezing or Shortness of Breath. triamcinolo 2020-09 Yes [id number] Apply to [facility] ne 0.025 % 09 area(s) 3 ity of ointment 00:00: (three) [place] 00 times Medical daily. For Branch itching cyanocobala 2020-09 Yes [id number] 1000ug 1 mL by [facility] min 1,000 1-09 Intramuscu ity of mcg/mL 00:00: lar route [place] injection 00 every 2 Medical (two) Branch weeks. levothyroxi 2020-09 Yes [id number] 50ug Take 1 [facility] ne 50 mcg 1-09 tablet by ity o f tablet 00:00: mouth [place] 00 every Medical morning. Branch fluticasone 2020-09 Yes [id number] 2{puff} Inhale 2 [facility] propionate 1-09 Puffs ity of (FLOVENT 00:00: every 12 [place] HFA) 110 00 (twelve) Medical mcg/actuati hours. Branch on inhaler Rinse mouth after each use. levalbutero 2020-09 Yes [id number] .63mg Inhale [facility] l 0.63 mg/3 1-09 0.63 mg 3 ity of mL 00:00: (three) [place] nebulizer 00 times Medical solution daily as Branch needed for Wheezing or Shortness of Breath. clotrimazol 2020-09 Yes [id number] Apply to [facility] e-betametha 09 area(s) 2 ity of sone cream 00:00: (two) [place] 00 times Medical daily. Branch cyclobenzap 2020-09 Yes [id number] TAKE 1 [facility] rine 5 mg -09 TABLET BY ity o f tablet 00:00: MOUTH [place] 00 EVERY 8 Medical HOURS Branch NEEDED econazole 2020-09 Yes [id number] Apply to [facility] nitrate 1 % 10-04 area(s) 2 ity of cream 00:00: (two) [place] 00 times Medical daily. Branch albuterol 2020-09 Yes [id number] 2{puff} Inhale 2 [facility] (PROAIR 1-09 Puffs ity of HFA) 90 00:00: every 6 [place] mcg/actuati 00 (six) Medical on inhaler hours as Branc h needed for Wheezing or Shortness of Breath. triamcinolo 2020-09 Yes [id number] Apply to [facility] ne 0.025 % 10-04 area(s) 3 ity of ointment 00:00: (three) [place] 00 times Medical daily. For Branch itching cyanocobala 2020-09 Yes [id number] 1000ug 1 mL by [facility] min 1,000 -09 Intramuscu ity of mcg/mL 00:00: lar route [place] injection 00 every 2 Medical (two) Branch weeks. levothyroxi 2020-09 Yes [id number] 50ug Take 1 [facility] ne 50 mcg -09 tablet by ity o f tablet 00:00: mouth [place] 00 every Medical morning. Branch fluticasone 2020-09 Yes [id number] 2{puff} Inhale 2 [facility] propionate 1-09 Puffs ity of (FLOVENT 00:00: every 12 [place] HFA) 110 00 (twelve) Medical mcg/actuati hours. Branch on inhaler Rinse mouth after each use. levalbutero 2020-09 Yes [id number] .63mg Inhale [facility] l 0.63 mg/3 1-09 0.63 mg 3 ity of mL 00:00: (three) [place] nebulizer 00 times Medical solution daily as Branch needed for Wheezing or Shortness of Breath. clotrimazol 2020-09 Yes [id number] Apply to [facility] e-betametha 10-04 area(s) 2 ity of sone cream 00:00: (two) [place] 00 times Medical daily. Branch cyclobenzap 2020-09 Yes [id number] TAKE 1 [facility] rine 5 mg 09 TABLET BY ity o f tablet 00:00: MOUTH [place] 00 EVERY 8 Medical HOURS Branch NEEDED econazole 2020-09 Yes [id number] Apply to [facility] nitrate 1 % 10-04 area(s) 2 ity of cream 00:00: (two) [place] 00 times Medical daily. Branch albuterol 2020-09 Yes [id number] 2{puff} Inhale 2 [facility] (PROAIR 1-09 Puffs ity of HFA) 90 00:00: every 6 [place] mcg/actuati 00 (six) Medical on inhaler hours as Branc h needed for Wheezing or Shortness of Breath. triamcinolo 2020-09 Yes [id number] Apply to [facility] ne 0.025 % 10-04 area(s) 3 ity of ointment 00:00: (three) [place] 00 times Medical daily. For Branch itching cyanocobala 2020-09 Yes [id number] 1000ug 1 mL by [facility] min 1,000 1-09 Intramuscu ity of mcg/mL 00:00: lar route [place] injection 00 every 2 Medical (two) Branch weeks. levothyroxi 2020-09 Yes [id number] 50ug Take 1 [facility] ne 50 mcg -09 tablet by ity o f tablet 00:00: mouth [place] 00 every Medical morning. Branch fluticasone 2020-09 Yes [id number] 2{puff} Inhale 2 [facility] propionate 1-09 Puffs ity of (FLOVENT 00:00: every 12 [place] HFA) 110 00 (twelve) Medical mcg/actuati hours. Branch on inhaler Rinse mouth after each use. levalbutero 2020-09 Yes [id number] .63mg Inhale [facility] l 0.63 mg/3 1-09 0.63 mg 3 ity of mL 00:00: (three) [place] nebulizer 00 times Medical solution daily as Branch needed for Wheezing or Shortness of Breath. clotrimazol 2020-09 Yes [id number] Apply to [facility] e-betametha 09 area(s) 2 ity of sone cream 00:00: (two) [place] 00 times Medical daily. Branch cyclobenzap 2020-09 Yes [id number] TAKE 1 [facility] rine 5 mg -09 TABLET BY ity o f tablet 00:00: MOUTH [place] 00 EVERY 8 Medical HOURS Branch NEEDED econazole 2020-09 Yes [id number] Apply to [facility] nitrate 1 % 10-04 area(s) 2 ity of cream 00:00: (two) [place] 00 times Medical daily. Branch albuterol 2020-09 Yes [id number] 2{puff} Inhale 2 [facility] (PROAIR 1-09 Puffs ity of HFA) 90 00:00: every 6 [place] mcg/actuati 00 (six) Medical on inhaler hours as Branc h needed for Wheezing or Shortness of Breath. triamcinolo 2020-09 Yes [id number] Apply to [facility] ne 0.025 % 10-04 area(s) 3 ity of ointment 00:00: (three) [place] 00 times Medical daily. For Branch itching cyanocobala 2020-09 Yes [id number] 1000ug 1 mL by [facility] min 1,000 -09 Intramuscu ity of mcg/mL 00:00: lar route [place] injection 00 every 2 Medical (two) Branch weeks. levothyroxi 2020-09 Yes [id number] 50ug Take 1 [facility] ne 50 mcg -09 tablet by ity o f tablet 00:00: mouth [place] 00 every Medical morning. Branch fluticasone 2020-09 Yes [id number] 2{puff} Inhale 2 [facility] propionate 1-09 Puffs ity of (FLOVENT 00:00: every 12 [place] HFA) 110 00 (twelve) Medical mcg/actuati hours. Branch on inhaler Rinse mouth after each use. levalbutero 2020-09 Yes [id number] .63mg Inhale [facility] l 0.63 mg/3 1-09 0.63 mg 3 ity of mL 00:00: (three) [place] nebulizer 00 times Medical solution daily as Branch needed for Wheezing or Shortness of Breath. clotrimazol 2020-09 Yes [id number] Apply to [facility] e-betametha -09 area(s) 2 ity of sone cream 00:00: (two) [place] 00 times Medical daily. Branch cyclobenzap 2020-09 Yes [id number] TAKE 1 [facility] rine 5 mg 09 TABLET BY ity o f tablet 00:00: MOUTH [place] 00 EVERY 8 Medical HOURS Branch NEEDED econazole 2020-09 Yes [id number] Apply to [facility] nitrate 1 % 09 area(s) 2 ity of cream 00:00: (two) [place] 00 times Medical daily. Branch albuterol 2020-09 Yes [id number] 2{puff} Inhale 2 [facility] (PROAIR 1-09 Puffs ity of HFA) 90 00:00: every 6 [place] mcg/actuati 00 (six) Medical on inhaler hours as Branc h needed for Wheezing or Shortness of Breath. triamcinolo 2020-09 Yes [id number] Apply to [facility] ne 0.025 % 10-04 area(s) 3 ity of ointment 00:00: (three) [place] 00 times Medical daily. For Branch itching cyanocobala 2020-09 Yes [id number] 1000ug 1 mL by [facility] min 1,000 1-09 Intramuscu ity of mcg/mL 00:00: lar route [place] injection 00 every 2 Medical (two) Branch weeks. fluticasone 2020-09 Yes [id number] 2{puff} Inhale 2 [facility] propionate 1-09 Puffs ity of (FLOVENT 00:00: every 12 [place] HFA) 110 00 (twelve) Medical mcg/actuati hours. Branch on inhaler Rinse mouth after each use. levalbutero 2020-09 Yes [id number] .63mg Inhale [facility] l 0.63 mg/3 1-09 0.63 mg 3 ity of mL 00:00: (three) [place] nebulizer 00 times Medical solution daily as Branch needed for Wheezing or Shortness of Breath. clotrimazol 2020-09 Yes [id number] Apply to [facility] e-betametha -09 area(s) 2 ity of sone cream 00:00: (two) [place] 00 times Medical daily. Branch cyclobenzap 2020-09 Yes [id number] TAKE 1 [facility] rine 5 mg -09 TABLET BY ity o f tablet 00:00: MOUTH [place] 00 EVERY 8 Medical HOURS Branch NEEDED econazole 2020-09 Yes [id number] Apply to [facility] nitrate 1 % 10-04 area(s) 2 ity of cream 00:00: (two) [place] 00 times Medical daily. Branch albuterol 2020-09 Yes [id number] 2{puff} Inhale 2 [facility] (PROAIR 1-09 Puffs ity of HFA) 90 00:00: every 6 [place] mcg/actuati 00 (six) Medical on inhaler hours as Branc h needed for Wheezing or Shortness of Breath. triamcinolo 2020-09 Yes [id number] Apply to [facility] ne 0.025 % 10-04 area(s) 3 ity of ointment 00:00: (three) [place] 00 times Medical daily. For Branch itching cyanocobala 2020-09 Yes [id number] 1000ug 1 mL by [facility] min 1,000 1-09 Intramuscu ity of mcg/mL 00:00: lar route [place] injection 00 every 2 Medical (two) Branch weeks. fluticasone 2020-09 Yes [id number] 2{puff} Inhale 2 [facility] propionate 1-09 Puffs ity of (FLOVENT 00:00: every 12 [place] HFA) 110 00 (twelve) Medical mcg/actuati hours. Branch on inhaler Rinse mouth after each use. levalbutero 2020-09 Yes [id number] .63mg Inhale [facility] l 0.63 mg/3 1-09 0.63 mg 3 ity of mL 00:00: (three) [place] nebulizer 00 times Medical solution daily as Branch needed for Wheezing or Shortness of Breath. clotrimazol 2020-09 Yes [id number] Apply to [facility] e-betametha -09 area(s) 2 ity of sone cream 00:00: (two) [place] 00 times Medical daily. Branch cyclobenzap 2020-09 Yes [id number] TAKE 1 [facility] rine 5 mg -09 TABLET BY ity o f tablet 00:00: MOUTH [place] 00 EVERY 8 Medical HOURS Branch NEEDED econazole 2020-09 Yes [id number] Apply to [facility] nitrate 1 % -09 area(s) 2 ity of cream 00:00: (two) [place] 00 times Medical daily. Branch albuterol 2020-09 Yes [id number] 2{puff} Inhale 2 [facility] (PROAIR 1-09 Puffs ity of HFA) 90 00:00: every 6 [place] mcg/actuati 00 (six) Medical on inhaler hours as Branc h needed for Wheezing or Shortness of Breath. triamcinolo 2020-09 Yes [id number] Apply to [facility] ne 0.025 % 09 area(s) 3 ity of ointment 00:00: (three) [place] 00 times Medical daily. For Branch itching cyanocobala 2020-09 Yes [id number] 1000ug 1 mL by [facility] min 1,000 1-09 Intramuscu ity of mcg/mL 00:00: lar route [place] injection 00 every 2 Medical (two) Branch weeks. levalbutero 2020-09 Yes [id number] .63mg Inhale [facility] l 0.63 mg/3 1-09 0.63 mg 3 ity of mL 00:00: (three) [place] nebulizer 00 times Medical solution daily as Branch needed for Wheezing or Shortness of Breath. cyclobenzap 2020-09 Yes [id number] TAKE 1 [facility] rine 5 mg 09 TABLET BY ity o f tablet 00:00: MOUTH [place] 00 EVERY 8 Medical HOURS Branch NEEDED albuterol 2020-09 Yes [id number] 2{puff} Inhale 2 [facility] (PROAIR 1-09 Puffs ity of HFA) 90 00:00: every 6 [place] mcg/actuati 00 (six) Medical on inhaler hours as Branc h needed for Wheezing or Shortness of Breath. cyanocobala 2020-09 Yes [id number] 1000ug 1 mL by [facility] min 1,000 1-09 Intramuscu ity of mcg/mL 00:00: lar route [place] injection 00 every 2 Medical (two) Branch weeks. levalbutero 2020-09 Yes [id number] .63mg Inhale [facility] l 0.63 mg/3 1-09 0.63 mg 3 ity of mL 00:00: (three) [place] nebulizer 00 times Medical solution daily as Branch needed for Wheezing or Shortness of Breath. cyclobenzap 2020-09 Yes [id number] TAKE 1 [facility] rine 5 mg 1-09 TABLET BY ity o f tablet 00:00: MOUTH [place] 00 EVERY 8 Medical HOURS Branch NEEDED albuterol 2020-09 Yes [id number] 2{puff} Inhale 2 [facility] (PROAIR 1-09 Puffs ity of HFA) 90 00:00: every 6 [place] mcg/actuati 00 (six) Medical on inhaler hours as Branc h needed for Wheezing or Shortness of Breath. cyanocobala 2020-09 Yes [id number] 1000ug 1 mL by [facility] min 1,000 1-09 Intramuscu ity of mcg/mL 00:00: lar route [place] injection 00 every 2 Medical (two) Branch weeks. levalbutero 2020-09 Yes [id number] .63mg Inhale [facility] l 0.63 mg/3 1-09 0.63 mg 3 ity of mL 00:00: (three) [place] nebulizer 00 times Medical solution daily as Branch needed for Wheezing or Shortness of Breath. cyclobenzap 2020-09 Yes [id number] TAKE 1 [facility] rine 5 mg 1-09 TABLET BY ity o f tablet 00:00: MOUTH [place] 00 EVERY 8 Medical HOURS Branch NEEDED albuterol 2020-09 Yes [id number] 2{puff} Inhale 2 [facility] (PROAIR 1-09 Puffs ity of HFA) 90 00:00: every 6 [place] mcg/actuati 00 (six) Medical on inhaler hours as Branc h needed for Wheezing or Shortness of Breath. cyanocobala 2020-09 Yes [id number] 1000ug 1 mL by [facility] min 1,000 1-09 Intramuscu ity of mcg/mL 00:00: lar route [place] injection 00 every 2 Medical (two) Branch weeks. levalbutero 2020-09 Yes [id number] .63mg Inhale [facility] 0.63 mg/3 1-09 0.63 mg 3 ity of mL 00:00: (three) [place] nebulizer 00 times Medical solution daily as Branch needed for Wheezing or Shortness of Breath. cyclobenzap 2020-09 Yes [id number] TAKE 1 [facility] rine 5 mg 1-09 TABLET BY ity o f tablet 00:00: MOUTH [place] 00 EVERY 8 Medical HOURS Branch NEEDED albuterol 2020-09 Yes [id number] 2{puff} Inhale 2 [facility] (PROAIR 1-09 Puffs ity of HFA) 90 00:00: every 6 [place] mcg/actuati 00 (six) Medical on inhaler hours as Branc h needed for Wheezing or Shortness of Breath. cyanocobala 2020-09 Yes [id number] 1000ug 1 mL by [facility] min 1,000 1-09 Intramuscu ity of mcg/mL 00:00: lar route [place] injection 00 every 2 Medical (two) Branch weeks. levalbutero 2020-09 Yes [id number] .63mg Inhale [facility] l 0.63 mg/3 1-09 0.63 mg 3 ity of mL 00:00: (three) [place] nebulizer 00 times Medical solution daily as Branch needed for Wheezing or Shortness of Breath. cyclobenzap 2020-09 Yes [id number] TAKE 1 [facility] rine 5 mg 1-09 TABLET BY ity o f tablet 00:00: MOUTH [place] 00 EVERY 8 Medical HOURS Branch NEEDED albuterol 2020-09 Yes [id number] 2{puff} Inhale 2 [facility] (PROAIR 1-09 Puffs ity of HFA) 90 00:00: every 6 [place] mcg/actuati 00 (six) Medical on inhaler hours as Branc h needed for Wheezing or Shortness of Breath. cyanocobala 2020-09 Yes [id number] 1000ug 1 mL by [facility] min 1,000 1-09 Intramuscu ity of mcg/mL 00:00: lar route [place] injection 00 every 2 Medical (two) Branch weeks. levalbutero 2020-09 Yes [id number] .63mg Inhale [facility] l 0.63 mg/3 1-09 0.63 mg 3 ity of mL 00:00: (three) [place] nebulizer 00 times Medical solution daily as Branch needed for Wheezing or Shortness of Breath. cyclobenzap 2020-09 Yes [id number] TAKE 1 [facility] rine 5 mg 1-09 TABLET BY ity o f tablet 00:00: MOUTH [place] 00 EVERY 8 Medical HOURS Branch NEEDED albuterol 2020-09 Yes [id number] 2{puff} Inhale 2 [facility] (PROAIR 1-09 Puffs ity of HFA) 90 00:00: every 6 [place] mcg/actuati 00 (six) Medical on inhaler hours as Branc h needed for Wheezing or Shortness of Breath. cyanocobala 2020-09 Yes [id number] 1000ug 1 mL by [facility] min 1,000 1-09 Intramuscu ity of mcg/mL 00:00: lar route [place] injection 00 every 2 Medical (two) Branch weeks. levalbutero 2020-09 Yes [id number] .63mg Inhale [facility] l 0.63 mg/3 1-09 0.63 mg 3 ity of mL 00:00: (three) [place] nebulizer 00 times Medical solution daily as Branch needed for Wheezing or Shortness of Breath. cyclobenzap 2020-09 Yes [id number] TAKE 1 [facility] rine 5 mg 1-09 TABLET BY ity o f tablet 00:00: MOUTH [place] 00 EVERY 8 Medical HOURS Branch NEEDED albuterol 2020-09 Yes [id number] 2{puff} Inhale 2 [facility] (PROAIR 1-09 Puffs ity of HFA) 90 00:00: every 6 [place] mcg/actuati 00 (six) Medical on inhaler hours as Branc h needed for Wheezing or Shortness of Breath. cyanocobala 2020-09 Yes [id number] 1000ug 1 mL by [facility] min 1,000 1-09 Intramuscu ity of mcg/mL 00:00: lar route [place] injection 00 every 2 Medical (two) Branch weeks. levalbutero 2020-09 Yes [id number] .63mg Inhale [facility] 0.63 mg/3 1-09 0.63 mg 3 ity of mL 00:00: (three) [place] nebulizer 00 times Medical solution daily as Branch needed for Wheezing or Shortness of Breath. cyclobenzap 2020-09 Yes [id number] TAKE 1 [facility] rine 5 mg 1-09 TABLET BY ity o f tablet 00:00: MOUTH [place] 00 EVERY 8 Medical HOURS Branch NEEDED albuterol 2020-09 Yes [id number] 2{puff} Inhale 2 [facility] (PROAIR 1-09 Puffs ity of HFA) 90 00:00: every 6 [place] mcg/actuati 00 (six) Medical on inhaler hours as Branc h needed for Wheezing or Shortness of Breath. cyanocobala 2020-09 Yes [id number] 1000ug 1 mL by [facility] min 1,000 1-09 Intramuscu ity of mcg/mL 00:00: lar route [place] injection 00 every 2 Medical (two) Branch weeks. levalbutero 2020-09 Yes [id number] .63mg Inhale [facility] l 0.63 mg/3 1-09 0.63 mg 3 ity of mL 00:00: (three) [place] nebulizer 00 times Medical solution daily as Branch needed for Wheezing or Shortness of Breath. cyclobenzap 2020-09 Yes [id number] TAKE 1 [facility] rine 5 mg 1-09 TABLET BY ity o f tablet 00:00: MOUTH [place] 00 EVERY 8 Medical HOURS Branch NEEDED albuterol 2020-09 Yes [id number] 2{puff} Inhale 2 [facility] (PROAIR 1-09 Puffs ity of HFA) 90 00:00: every 6 [place] mcg/actuati 00 (six) Medical on inhaler hours as Branc h needed for Wheezing or Shortness of Breath. levalbutero 2020-09 Yes [id number] .63mg Inhale [facility] l 0.63 mg/3 1-09 0.63 mg 3 ity of mL 00:00: (three) [place] nebulizer 00 times Medical solution daily as Branch needed for Wheezing or Shortness of Breath. cyclobenzap 2020-09 Yes [id number] TAKE 1 [facility] rine 5 mg 1-09 TABLET BY ity o f tablet 00:00: MOUTH [place] 00 EVERY 8 Medical HOURS Branch NEEDED albuterol 2020-09 Yes [id number] 2{puff} Inhale 2 [facility] (PROAIR 1-09 Puffs ity of HFA) 90 00:00: every 6 [place] mcg/actuati 00 (six) Medical on inhaler hours as Branc h needed for Wheezing or Shortness of Breath. levalbutero 2020-09 Yes [id number] .63mg Inhale [facility] l 0.63 mg/3 1-09 0.63 mg 3 ity of mL 00:00: (three) [place] nebulizer 00 times Medical solution daily as Branch needed for Wheezing or Shortness of Breath. cyclobenzap 2020-09 Yes [id number] TAKE 1 [facility] rine 5 mg 1-09 TABLET BY ity o f tablet 00:00: MOUTH [place] 00 EVERY 8 Medical HOURS Branch NEEDED albuterol 2020-09 Yes [id number] 2{puff} Inhale 2 [facility] (PROAIR 1-09 Puffs ity of HFA) 90 00:00: every 6 [place] mcg/actuati 00 (six) Medical on inhaler hours as Branc h needed for Wheezing or Shortness of Breath. levalbutero 2020-09 Yes [id number] .63mg Inhale [facility] l 0.63 mg/3 1-09 0.63 mg 3 ity of mL 00:00: (three) [place] nebulizer 00 times Medical solution daily as Branch needed for Wheezing or Shortness of Breath. cyclobenzap 2020-09 Yes [id number] TAKE 1 [facility] rine 5 mg 1-09 TABLET BY ity o f tablet 00:00: MOUTH [place] 00 EVERY 8 Medical HOURS Branch NEEDED albuterol 2020-09 Yes [id number] 2{puff} Inhale 2 [facility] (PROAIR 1-09 Puffs ity of HFA) 90 00:00: every 6 [place] mcg/actuati 00 (six) Medical on inhaler hours as Branc h needed for Wheezing or Shortness of Breath. levalbutero 2020-09 Yes [id number] .63mg Inhale [facility] l 0.63 mg/3 1-09 0.63 mg 3 ity of mL 00:00: (three) [place] nebulizer 00 times Medical solution daily as Branch needed for Wheezing or Shortness of Breath. cyclobenzap 2020-09 Yes [id number] TAKE 1 [facility] rine 5 mg 1-09 TABLET BY ity o f tablet 00:00: MOUTH [place] 00 EVERY 8 Medical HOURS Branch NEEDED albuterol 2020-09 Yes [id number] 2{puff} Inhale 2 [facility] (PROAIR 1-09 Puffs ity of HFA) 90 00:00: every 6 [place] mcg/actuati 00 (six) Medical on inhaler hours as Branc h needed for Wheezing or Shortness of Breath. levalbutero 2020-09 Yes [id number] .63mg Inhale [facility] l 0.63 mg/3 1-09 0.63 mg 3 ity of mL 00:00: (three) [place] nebulizer 00 times Medical solution daily as Branch needed for Wheezing or Shortness of Breath. cyclobenzap 2020-09 Yes [id number] TAKE 1 [facility] rine 5 mg 1-09 TABLET BY ity o f tablet 00:00: MOUTH [place] 00 EVERY 8 Medical HOURS Branch NEEDED albuterol 2020-09 Yes [id number] 2{puff} Inhale 2 [facility] (PROAIR 1-09 Puffs ity of HFA) 90 00:00: every 6 [place] mcg/actuati 00 (six) Medical on inhaler hours as Branc h needed for Wheezing or Shortness of Breath. levalbutero 2020-09 Yes [id number] .63mg Inhale [facility] l 0.63 mg/3 1-09 0.63 mg 3 ity of mL 00:00: (three) [place] nebulizer 00 times Medical solution daily as Branch needed for Wheezing or Shortness of Breath. cyclobenzap 2020-09 Yes [id number] TAKE 1 [facility] rine 5 mg 1-09 TABLET BY ity o f tablet 00:00: MOUTH [place] 00 EVERY 8 Medical HOURS Branch NEEDED albuterol 2020-09 Yes [id number] 2{puff} Inhale 2 [facility] (PROAIR 1-09 Puffs ity of HFA) 90 00:00: every 6 [place] mcg/actuati 00 (six) Medical on inhaler hours as Branc h needed for Wheezing or Shortness of Breath. levalbutero 2020-09 Yes [id number] .63mg Inhale [facility] l 0.63 mg/3 1-09 0.63 mg 3 ity of mL 00:00: (three) [place] nebulizer 00 times Medical solution daily as Branch needed for Wheezing or Shortness of Breath. cyclobenzap 2020-09 Yes [id number] TAKE 1 [facility] rine 5 mg 1-09 TABLET BY ity o f tablet 00:00: MOUTH [place] 00 EVERY 8 Medical HOURS Branch NEEDED albuterol 2020-09 Yes [id number] 2{puff} Inhale 2 [facility] (PROAIR 1-09 Puffs ity of HFA) 90 00:00: every 6 [place] mcg/actuati 00 (six) Medical on inhaler hours as Branc h needed for Wheezing or Shortness of Breath. levalbutero 2020-09 Yes [id number] .63mg Inhale [facility] l 0.63 mg/3 1-09 0.63 mg 3 ity of mL 00:00: (three) [place] nebulizer 00 times Medical solution daily as Branch needed for Wheezing or Shortness of Breath. cyclobenzap 2020-09 Yes [id number] TAKE 1 [facility] rine 5 mg 1-09 TABLET BY ity o f tablet 00:00: MOUTH [place] 00 EVERY 8 Medical HOURS Branch NEEDED albuterol 2020-09 Yes [id number] 2{puff} Inhale 2 [facility] (PROAIR 1-09 Puffs ity of HFA) 90 00:00: every 6 [place] mcg/actuati 00 (six) Medical on inhaler hours as Branc h needed for Wheezing or Shortness of Breath. levalbutero 2020-09 Yes [id number] .63mg Inhale [facility] l 0.63 mg/3 1-09 0.63 mg 3 ity of mL 00:00: (three) [place] nebulizer 00 times Medical solution daily as Branch needed for Wheezing or Shortness of Breath. cyclobenzap 2020-09 Yes [id number] TAKE 1 [facility] rine 5 mg 1-09 TABLET BY ity o f tablet 00:00: MOUTH [place] 00 EVERY 8 Medical HOURS Branch NEEDED albuterol 2020-09 Yes [id number] 2{puff} Inhale 2 [facility] (PROAIR 1-09 Puffs ity of HFA) 90 00:00: every 6 [place] mcg/actuati 00 (six) Medical on inhaler hours as Branc h needed for Wheezing or Shortness of Breath. levalbutero 2020-09 Yes [id number] .63mg Inhale [facility] l 0.63 mg/3 1-09 0.63 mg 3 ity of mL 00:00: (three) [place] nebulizer 00 times Medical solution daily as Branch needed for Wheezing or Shortness of Breath. cyclobenzap 2020-09 Yes [id number] TAKE 1 [facility] rine 5 mg 1-09 TABLET BY ity o f tablet 00:00: MOUTH [place] 00 EVERY 8 Medical HOURS Branch NEEDED albuterol 2020-09 Yes [id number] 2{puff} Inhale 2 [facility] (PROAIR 1-09 Puffs ity of HFA) 90 00:00: every 6 [place] mcg/actuati 00 (six) Medical on inhaler hours as Branc h needed for Wheezing or Shortness of Breath. levalbutero 2020-09 Yes [id number] .63mg Inhale [facility] l 0.63 mg/3 1-09 0.63 mg 3 ity of mL 00:00: (three) [place] nebulizer 00 times Medical solution daily as Branch needed for Wheezing or Shortness of Breath. cyclobenzap 2020-09 Yes [id number] TAKE 1 [facility] rine 5 mg 1-09 TABLET BY ity o f tablet 00:00: MOUTH [place] 00 EVERY 8 Medical HOURS Branch NEEDED albuterol 2020-09 Yes [id number] 2{puff} Inhale 2 [facility] (PROAIR 1-09 Puffs ity of HFA) 90 00:00: every 6 [place] mcg/actuati 00 (six) Medical on inhaler hours as Branc h needed for Wheezing or Shortness of Breath. levalbutero 2020-09 Yes [id number] .63mg Inhale [facility] l 0.63 mg/3 1-09 0.63 mg 3 ity of mL 00:00: (three) [place] nebulizer 00 times Medical solution daily as Branch needed for Wheezing or Shortness of Breath. cyclobenzap 2020-09 Yes [id number] TAKE 1 [facility] rine 5 mg 1-09 TABLET BY ity o f tablet 00:00: MOUTH [place] 00 EVERY 8 Medical HOURS Branch NEEDED albuterol 2020-09 Yes [id number] 2{puff} Inhale 2 [facility] (PROAIR 1-09 Puffs ity of HFA) 90 00:00: every 6 [place] mcg/actuati 00 (six) Medical on inhaler hours as Branc h needed for Wheezing or Shortness of Breath. levalbutero 2020-09 Yes [id number] .63mg Inhale [facility] l 0.63 mg/3 1-09 0.63 mg 3 ity of mL 00:00: (three) [place] nebulizer 00 times Medical solution daily as Branch needed for Wheezing or Shortness of Breath. cyclobenzap 2020-09 Yes [id number] TAKE 1 [facility] rine 5 mg 1-09 TABLET BY ity o f tablet 00:00: MOUTH [place] 00 EVERY 8 Medical HOURS Branch NEEDED albuterol 2020-09 Yes [id number] 2{puff} Inhale 2 [facility] (PROAIR 1-09 Puffs ity of HFA) 90 00:00: every 6 [place] mcg/actuati 00 (six) Medical on inhaler hours as Branc h needed for Wheezing or Shortness of Breath. levalbutero 2020-09 Yes [id number] .63mg Inhale [facility] l 0.63 mg/3 1-09 0.63 mg 3 ity of mL 00:00: (three) [place] nebulizer 00 times Medical solution daily as Branch needed for Wheezing or Shortness of Breath. cyclobenzap 2020-09 Yes [id number] TAKE 1 [facility] rine 5 mg 1-09 TABLET BY ity o f tablet 00:00: MOUTH [place] 00 EVERY 8 Medical HOURS Branch NEEDED albuterol 2020-09 Yes [id number] 2{puff} Inhale 2 [facility] (PROAIR 1-09 Puffs ity of HFA) 90 00:00: every 6 [place] mcg/actuati 00 (six) Medical on inhaler hours as Branc h needed for Wheezing or Shortness of Breath. levalbutero 2020-09 Yes [id number] .63mg Inhale [facility] l 0.63 mg/3 1-09 0.63 mg 3 ity of mL 00:00: (three) [place] nebulizer 00 times Medical solution daily as Branch needed for Wheezing or Shortness of Breath. cyclobenzap 2020-09 Yes [id number] TAKE 1 [facility] rine 5 mg 1-09 TABLET BY ity o f tablet 00:00: MOUTH [place] 00 EVERY 8 Medical HOURS Branch NEEDED albuterol 2020-09 Yes [id number] 2{puff} Inhale 2 [facility] (PROAIR 1-09 Puffs ity of HFA) 90 00:00: every 6 [place] mcg/actuati 00 (six) Medical on inhaler hours as Branc h needed for Wheezing or Shortness of Breath. levalbutero 2020-09 Yes [id number] .63mg Inhale [facility] l 0.63 mg/3 1-09 0.63 mg 3 ity of mL 00:00: (three) [place] nebulizer 00 times Medical solution daily as Branch needed for Wheezing or Shortness of Breath. cyclobenzap 2020-09 Yes [id number] TAKE 1 [facility] rine 5 mg 1-09 TABLET BY ity o f tablet 00:00: MOUTH [place] 00 EVERY 8 Medical HOURS Branch NEEDED albuterol 2020-09 Yes [id number] 2{puff} Inhale 2 [facility] (PROAIR 1-09 Puffs ity of HFA) 90 00:00: every 6 [place] mcg/actuati 00 (six) Medical on inhaler hours as Branc h needed for Wheezing or Shortness of Breath. levalbutero 2020-09 Yes [id number] .63mg Inhale [facility] l 0.63 mg/3 1-09 0.63 mg 3 ity of mL 00:00: (three) [place] nebulizer 00 times Medical solution daily as Branch needed for Wheezing or Shortness of Breath. cyclobenzap 2020-09 Yes [id number] TAKE 1 [facility] rine 5 mg 1-09 TABLET BY ity o f tablet 00:00: MOUTH [place] 00 EVERY 8 Medical HOURS Branch NEEDED albuterol 2020-09 Yes [id number] 2{puff} Inhale 2 [facility] (PROAIR 1-09 Puffs ity of HFA) 90 00:00: every 6 [place] mcg/actuati 00 (six) Medical on inhaler hours as Branc h needed for Wheezing or Shortness of Breath. levalbutero 2020-09 Yes [id number] .63mg Inhale [facility] l 0.63 mg/3 1-09 0.63 mg 3 ity of mL 00:00: (three) [place] nebulizer 00 times Medical solution daily as Branch needed for Wheezing or Shortness of Breath. cyclobenzap 2020-09 Yes [id number] TAKE 1 [facility] rine 5 mg 1-09 TABLET BY ity o f tablet 00:00: MOUTH [place] 00 EVERY 8 Medical HOURS Branch NEEDED albuterol 2020-09 Yes [id number] 2{puff} Inhale 2 [facility] (PROAIR 1-09 Puffs ity of HFA) 90 00:00: every 6 [place] mcg/actuati 00 (six) Medical on inhaler hours as Branc h needed for Wheezing or Shortness of Breath. levalbutero 2020-09 Yes [id number] .63mg Inhale [facility] l 0.63 mg/3 1-09 0.63 mg 3 ity of mL 00:00: (three) [place] nebulizer 00 times Medical solution daily as Branch needed for Wheezing or Shortness of Breath. albuterol 2020-09 Yes [id number] 2{puff} Inhale 2 [facility] (PROAIR 1-09 Puffs ity of HFA) 90 00:00: every 6 [place] mcg/actuati 00 (six) Medical on inhaler hours as Branc h needed for Wheezing or Shortness of Breath. levalbutero 2020-09 Yes [id number] .63mg Inhale [facility] l 0.63 mg/3 1-09 0.63 mg 3 ity of mL 00:00: (three) [place] nebulizer 00 times Medical solution daily as Branch needed for Wheezing or Shortness of Breath. albuterol 2020-09 Yes [id number] 2{puff} Inhale 2 [facility] (PROAIR 1-09 Puffs ity of HFA) 90 00:00: every 6 [place] mcg/actuati 00 (six) Medical on inhaler hours as Branc h needed for Wheezing or Shortness of Breath. levalbutero 2020-09 Yes [id number] .63mg Inhale [facility] l 0.63 mg/3 1-09 0.63 mg 3 ity of mL 00:00: (three) [place] nebulizer 00 times Medical solution daily as Branch needed for Wheezing or Shortness of Breath. albuterol 2020-09 Yes [id number] 2{puff} Inhale 2 [facility] (PROAIR 1-09 Puffs ity of HFA) 90 00:00: every 6 [place] mcg/actuati 00 (six) Medical on inhaler hours as Branc h needed for Wheezing or Shortness of Breath. levalbutero 2020-09 Yes [id number] .63mg Inhale [facility] l 0.63 mg/3 1-09 0.63 mg 3 ity of mL 00:00: (three) [place] nebulizer 00 times Medical solution daily as Branch needed for Wheezing or Shortness of Breath. albuterol 2020-09 Yes [id number] 2{puff} Inhale 2 [facility] (PROAIR 1-09 Puffs ity of HFA) 90 00:00: every 6 [place] mcg/actuati 00 (six) Medical on inhaler hours as Branc h needed for Wheezing or Shortness of Breath. levalbutero 2020-09 Yes [id number] .63mg Inhale [facility] l 0.63 mg/3 1-09 0.63 mg 3 ity of mL 00:00: (three) [place] nebulizer 00 times Medical solution daily as Branch needed for Wheezing or Shortness of Breath. albuterol 2020-09 Yes [id number] 2{puff} Inhale 2 [facility] (PROAIR 1-09 Puffs ity of HFA) 90 00:00: every 6 [place] mcg/actuati 00 (six) Medical on inhaler hours as Branc h needed for Wheezing or Shortness of Breath. levalbutero 2020-09 Yes [id number] .63mg Inhale [facility] l 0.63 mg/3 1-09 0.63 mg 3 ity of mL 00:00: (three) [place] nebulizer 00 times Medical solution daily as Branch needed for Wheezing or Shortness of Breath. albuterol 2020-09 Yes [id number] 2{puff} Inhale 2 [facility] (PROAIR 1-09 Puffs ity of HFA) 90 00:00: every 6 [place] mcg/actuati 00 (six) Medical on inhaler hours as Branc h needed for Wheezing or Shortness of Breath. levalbutero 2020-09 Yes [id number] .63mg Inhale [facility] l 0.63 mg/3 1-09 0.63 mg 3 ity of mL 00:00: (three) [place] nebulizer 00 times Medical solution daily as Branch needed for Wheezing or Shortness of Breath. albuterol 2020-09 Yes [id number] 2{puff} Inhale 2 [facility] (PROAIR 1-09 Puffs ity of HFA) 90 00:00: every 6 [place] mcg/actuati 00 (six) Medical on inhaler hours as Branc h needed for Wheezing or Shortness of Breath. levalbutero 2020-09 Yes [id number] .63mg Inhale [facility] l 0.63 mg/3 1-09 0.63 mg 3 ity of mL 00:00: (three) [place] nebulizer 00 times Medical solution daily as Branch needed for Wheezing or Shortness of Breath. albuterol 2020-09 Yes [id number] 2{puff} Inhale 2 [facility] (PROAIR 1-09 Puffs ity of HFA) 90 00:00: every 6 [place] mcg/actuati 00 (six) Medical on inhaler hours as Branc h needed for Wheezing or Shortness of Breath. levalbutero 2020-09 Yes [id number] .63mg Inhale [facility] l 0.63 mg/3 1-09 0.63 mg 3 ity of mL 00:00: (three) [place] nebulizer 00 times Medical solution daily as Branch needed for Wheezing or Shortness of Breath. albuterol 2020-09 Yes [id number] 2{puff} Inhale 2 [facility] (PROAIR 1-09 Puffs ity of HFA) 90 00:00: every 6 [place] mcg/actuati 00 (six) Medical on inhaler hours as Branc h needed for Wheezing or Shortness of Breath. levalbutero 2020-09 Yes [id number] .63mg Inhale [facility] l 0.63 mg/3 1-09 0.63 mg 3 ity of mL 00:00: (three) [place] nebulizer 00 times Medical solution daily as Branch needed for Wheezing or Shortness of Breath. albuterol 2020-09 Yes [id number] 2{puff} Inhale 2 [facility] (PROAIR 1-09 Puffs ity of HFA) 90 00:00: every 6 [place] mcg/actuati 00 (six) Medical on inhaler hours as Branc h needed for Wheezing or Shortness of Breath. levalbutero 2020-09 Yes [id number] .63mg Inhale [facility] l 0.63 mg/3 1-09 0.63 mg 3 ity of mL 00:00: (three) [place] nebulizer 00 times Medical solution daily as Branch needed for Wheezing or Shortness of Breath. albuterol 2020-09 Yes [id number] 2{puff} Inhale 2 [facility] (PROAIR 1-09 Puffs ity of HFA) 90 00:00: every 6 [place] mcg/actuati 00 (six) Medical on inhaler hours as Branc h needed for Wheezing or Shortness of Breath. levalbutero 2020-09 Yes [id number] .63mg Inhale [facility] l 0.63 mg/3 1-09 0.63 mg 3 ity of mL 00:00: (three) [place] nebulizer 00 times Medical solution daily as Branch needed for Wheezing or Shortness of Breath. albuterol 2020-09 Yes [id number] 2{puff} Inhale 2 [facility] (PROAIR 1-09 Puffs ity of HFA) 90 00:00: every 6 [place] mcg/actuati 00 (six) Medical on inhaler hours as Branc h needed for Wheezing or Shortness of Breath. levalbutero 2020-09 Yes [id number] .63mg Inhale [facility] l 0.63 mg/3 1-09 0.63 mg 3 ity of mL 00:00: (three) [place] nebulizer 00 times Medical solution daily as Branch needed for Wheezing or Shortness of Breath. albuterol 2020-09 Yes [id number] 2{puff} Inhale 2 [facility] (PROAIR 1-09 Puffs ity of HFA) 90 00:00: every 6 [place] mcg/actuati 00 (six) Medical on inhaler hours as Branc h needed for Wheezing or Shortness of Breath. levalbutero 2020-09 Yes [id number] .63mg Inhale [facility] l 0.63 mg/3 1-09 0.63 mg 3 ity of mL 00:00: (three) [place] nebulizer 00 times Medical solution daily as Branch needed for Wheezing or Shortness of Breath. albuterol 2020-09 Yes [id number] 2{puff} Inhale 2 [facility] (PROAIR 1-09 Puffs ity of HFA) 90 00:00: every 6 [place] mcg/actuati 00 (six) Medical on inhaler hours as Branc h needed for Wheezing or Shortness of Breath. levalbutero 2020-09 Yes [id number] .63mg Inhale [facility] l 0.63 mg/3 1-09 0.63 mg 3 ity of mL 00:00: (three) [place] nebulizer 00 times Medical solution daily as Branch needed for Wheezing or Shortness of Breath. albuterol 2020-09 Yes [id number] 2{puff} Inhale 2 [facility] (PROAIR 1-09 Puffs ity of HFA) 90 00:00: every 6 [place] mcg/actuati 00 (six) Medical on inhaler hours as Branc h needed for Wheezing or Shortness of Breath. rosuvastati 2020-09 Yes [id number] 10mg Take 1 [facility] n 10 mg 1-09 tablet by ity of tablet 00:00: mouth at [place] 00 bedtime. Medical Branch cyanocobala 2020-09 Yes [id number] 1000ug 1 mL by [facility] min 1,000 1-09 Intramuscu ity of mcg/mL 00:00: lar route [place] injection 00 every 2 Medical (two) Branch weeks. levothyroxi 2020-09 Yes [id number] 50ug Take 1 [facility] ne 50 mcg 1-09 tablet by ity o f tablet 00:00: mouth [place] 00 every Medical morning. Branch fluticasone 2020-09 Yes [id number] 2{puff} Inhale 2 [facility] propionate 1-09 Puffs ity of (FLOVENT 00:00: every 12 [place] HFA) 110 00 (twelve) Medical mcg/actuati hours. Branch on inhaler Rinse mouth after each use. levalbutero 2020-09 Yes [id number] .63mg Inhale [facility] l 0.63 mg/3 1-09 0.63 mg 3 ity of mL 00:00: (three) [place] nebulizer 00 times Medical solution daily as Branch needed for Wheezing or Shortness of Breath. losartan 50 2020-09 Yes [id number] 50mg Take 1 [facility] mg tablet -09 tablet by ity o f 00:00: mouth 2 [place] 00 (two) Medical times Branch daily. clotrimazol 2020-09 Yes [id number] Apply to [facility] e-betametha -09 area(s) 2 ity of sone cream 00:00: (two) [place] 00 times Medical daily. Branch cyclobenzap 2020-09 Yes [id number] TAKE 1 [facility] rine 5 mg -09 TABLET BY ity o f tablet 00:00: MOUTH [place] 00 EVERY 8 Medical HOURS Branch NEEDED econazole 2020-09 Yes [id number] Apply to [facility] nitrate 1 % 10-04 area(s) 2 ity of cream 00:00: (two) [place] 00 times Medical daily. Branch albuterol 2020-09 Yes [id number] 2{puff} Inhale 2 [facility] (PROAIR 1-09 Puffs ity of HFA) 90 00:00: every 6 [place] mcg/actuati 00 (six) Medical on inhaler hours as Branc h needed for Wheezing or Shortness of Breath. triamcinolo 2020-09 Yes [id number] Apply to [facility] ne 0.025 % -09 area(s) 3 ity of ointment 00:00: (three) [place] 00 times Medical daily. For Branch itching diltiazem 2020-09 Yes [id number] 120mg Take 1 [facility] (CARTIA XT) -09 capsule by it y of 120 mg 24 00:00: mouth 2 [place] hr capsule 00 (two) Medical times Branch daily. rosuvastati 2020-09 Yes [id number] 10mg Take 1 [facility] n 10 mg 1-09 tablet by ity of tablet 00:00: mouth at [place] 00 bedtime. Medical Branch cyanocobala 2020-09 Yes [id number] 1000ug 1 mL by [facility] min 1,000 -09 Intramuscu ity of mcg/mL 00:00: lar route [place] injection 00 every 2 Medical (two) Branch weeks. levothyroxi 2020-09 Yes [id number] 50ug Take 1 [facility] ne 50 mcg -09 tablet by ity o f tablet 00:00: mouth [place] 00 every Medical morning. Branch fluticasone 2020-09 Yes [id number] 2{puff} Inhale 2 [facility] propionate 1-09 Puffs ity of (FLOVENT 00:00: every 12 [place] HFA) 110 00 (twelve) Medical mcg/actuati hours. Branch on inhaler Rinse mouth after each use. levalbutero 2020-09 Yes [id number] .63mg Inhale [facility] l 0.63 mg/3 -09 0.63 mg 3 ity of mL 00:00: (three) [place] nebulizer 00 times Medical solution daily as Branch needed for Wheezing or Shortness of Breath. losartan 50 2020-09 Yes [id number] 50mg Take 1 [facility] mg tablet -09 tablet by ity o f 00:00: mouth 2 [place] 00 (two) Medical times Branch daily. clotrimazol 2020-09 Yes [id number] Apply to [facility] e-betametha 10-04 area(s) 2 ity of sone cream 00:00: (two) [place] 00 times Medical daily. Branch cyclobenzap 2020-09 Yes [id number] TAKE 1 [facility] rine 5 mg 1-09 TABLET BY ity o f tablet 00:00: MOUTH [place] 00 EVERY 8 Medical HOURS Branch NEEDED econazole 2020-09 Yes [id number] Apply to [facility] nitrate 1 % -09 area(s) 2 ity of cream 00:00: (two) [place] 00 times Medical daily. Branch albuterol 2020-09 Yes [id number] 2{puff} Inhale 2 [facility] (PROAIR 1-09 Puffs ity of HFA) 90 00:00: every 6 [place] mcg/actuati 00 (six) Medical on inhaler hours as Branc h needed for Wheezing or Shortness of Breath. triamcinolo 2020-09 Yes [id number] Apply to [facility] ne 0.025 % 1-09 area(s) 3 ity of ointment 00:00: (three) [place] 00 times Medical daily. For Branch itching diltiazem 2020-09 Yes [id number] 120mg Take 1 [facility] (CARTIA XT) 09 capsule by it y of 120 mg 24 00:00: mouth 2 [place] hr capsule 00 (two) Medical times Branch daily. cyanocobala 2020-09 Yes [id number] 1000ug 1 mL by [facility] min 1,000 1-09 Intramuscu ity of mcg/mL 00:00: lar route [place] injection 00 every 2 Medical (two) Branch weeks. levothyroxi 2020-09 Yes [id number] 50ug Take 1 [facility] ne 50 mcg -09 tablet by ity o f tablet 00:00: mouth [place] 00 every Medical morning. Branch fluticasone 2020-09 Yes [id number] 2{puff} Inhale 2 [facility] propionate 1-09 Puffs ity of (FLOVENT 00:00: every 12 [place] HFA) 110 00 (twelve) Medical mcg/actuati hours. Branch on inhaler Rinse mouth after each use. levalbutero 2020-09 Yes [id number] .63mg Inhale [facility] l 0.63 mg/3 1-09 0.63 mg 3 ity of mL 00:00: (three) [place] nebulizer 00 times Medical solution daily as Branch needed for Wheezing or Shortness of Breath. losartan 50 2020-09 Yes [id number] 50mg Take 1 [facility] mg tablet -09 tablet by ity o f 00:00: mouth 2 [place] 00 (two) Medical times Branch daily. clotrimazol 2020-09 Yes [id number] Apply to [facility] e-betametha -09 area(s) 2 ity of sone cream 00:00: (two) [place] 00 times Medical daily. Branch cyclobenzap 2020-09 Yes [id number] TAKE 1 [facility] rine 5 mg 1-09 TABLET BY ity o f tablet 00:00: MOUTH [place] 00 EVERY 8 Medical HOURS Branch NEEDED econazole 2020-09 Yes [id number] Apply to [facility] nitrate 1 % 09 area(s) 2 ity of cream 00:00: (two) [place] 00 times Medical daily. Branch albuterol 2020-09 Yes [id number] 2{puff} Inhale 2 [facility] (PROAIR 1-09 Puffs ity of HFA) 90 00:00: every 6 [place] mcg/actuati 00 (six) Medical on inhaler hours as Branc h needed for Wheezing or Shortness of Breath. triamcinolo 2020-09 Yes [id number] Apply to [facility] ne 0.025 % 09 area(s) 3 ity of ointment 00:00: (three) [place] 00 times Medical daily. For Branch itching diltiazem 2020-09 Yes [id number] 120mg Take 1 [facility] (CARTIA XT) 10-04 capsule by it y of 120 mg 24 00:00: mouth 2 [place] hr capsule 00 (two) Medical times Branch daily. cyanocobala 2020-09 Yes [id number] 1000ug 1 mL by [facility] min 1,000 -09 Intramuscu ity of mcg/mL 00:00: lar route [place] injection 00 every 2 Medical (two) Branch weeks. levothyroxi 2020-09 Yes [id number] 50ug Take 1 [facility] ne 50 mcg 10-04 tablet by ity o f tablet 00:00: mouth [place] 00 every Medical morning. Branch fluticasone 2020-09 Yes [id number] 2{puff} Inhale 2 [facility] propionate 1-09 Puffs ity of (FLOVENT 00:00: every 12 [place] HFA) 110 00 (twelve) Medical mcg/actuati hours. Branch on inhaler Rinse mouth after each use. levalbutero 2020-09 Yes [id number] .63mg Inhale [facility] l 0.63 mg/3 1-09 0.63 mg 3 ity of mL 00:00: (three) [place] nebulizer 00 times Medical solution daily as Branch needed for Wheezing or Shortness of Breath. losartan 50 2020-09 Yes [id number] 50mg Take 1 [facility] mg tablet -09 tablet by ity o f 00:00: mouth 2 [place] 00 (two) Medical times Branch daily. clotrimazol 2020-09 Yes [id number] Apply to [facility] e-betametha 1-09 area(s) 2 ity of sone cream 00:00: (two) [place] 00 times Medical daily. Branch cyclobenzap 2020-09 Yes [id number] TAKE 1 [facility] rine 5 mg -09 TABLET BY ity o f tablet 00:00: MOUTH [place] 00 EVERY 8 Medical HOURS Branch NEEDED econazole 2020-09 Yes [id number] Apply to [facility] nitrate 1 % 10-04 area(s) 2 ity of cream 00:00: (two) [place] 00 times Medical daily. Branch albuterol 2020-09 Yes [id number] 2{puff} Inhale 2 [facility] (PROAIR 1-09 Puffs ity of HFA) 90 00:00: every 6 [place] mcg/actuati 00 (six) Medical on inhaler hours as Branc h needed for Wheezing or Shortness of Breath. triamcinolo 2020-09 Yes [id number] Apply to [facility] ne 0.025 % 10-04 area(s) 3 ity of ointment 00:00: (three) [place] 00 times Medical daily. For Branch itching diltiazem 2020-09 Yes [id number] 120mg Take 1 [facility] n[facility] (CARTIA XT) 09 capsule by it y of 120 mg 24 00:00: mouth 2 [place] hr capsule 00 (two) Medical times Branch daily. cyanocobala 2020-09 Yes [id number] 1000ug 1 mL by [facility] min 1,000 -09 Intramuscu ity of mcg/mL 00:00: lar route [place] injection 00 every 2 Medical (two) Branch weeks. levothyroxi 2020-09 Yes [id number] 50ug Take 1 [facility] ne 50 mcg 09 tablet by ity o f tablet 00:00: mouth [place] 00 every Medical morning. Branch fluticasone 2020-09 Yes [id number] 2{puff} Inhale 2 [facility] propionate 1-09 Puffs ity of (FLOVENT 00:00: every 12 [place] HFA) 110 00 (twelve) Medical mcg/actuati hours. Branch on inhaler Rinse mouth after each use. levalbutero 2020-09 Yes [id number] .63mg Inhale [facility] l 0.63 mg/3 1-09 0.63 mg 3 ity of mL 00:00: (three) [place] nebulizer 00 times Medical solution daily as Branch needed for Wheezing or Shortness of Breath. losartan 50 2020-09 Yes [id number] 50mg Take 1 [facility] mg tablet 1-09 tablet by ity o f 00:00: mouth 2 [place] 00 (two) Medical times Branch daily. clotrimazol 2020-09 Yes [id number] Apply to [facility] e-betametha 09 area(s) 2 ity of sone cream 00:00: (two) [place] 00 times Medical daily. Branch cyclobenzap 2020-09 Yes [id number] TAKE 1 [facility] rine 5 mg -09 TABLET BY ity o f tablet 00:00: MOUTH [place] 00 EVERY 8 Medical HOURS Branch NEEDED econazole 2020-09 Yes [id number] Apply to [facility] nitrate 1 % 10-04 area(s) 2 ity of cream 00:00: (two) [place] 00 times Medical daily. Branch albuterol 2020-09 Yes [id number] 2{puff} Inhale 2 [facility] (PROAIR 1-09 Puffs ity of HFA) 90 00:00: every 6 [place] mcg/actuati 00 (six) Medical on inhaler hours as Branc h needed for Wheezing or Shortness of Breath. triamcinolo 2020-09 Yes [id number] Apply to [facility] ne 0.025 % 10-04 area(s) 3 ity of ointment 00:00: (three) [place] 00 times Medical daily. For Branch itching diltiazem 2020-09 Yes [id number] 120mg Take 1 [facility] (CARTIA XT) 09 capsule by it y of 120 mg 24 00:00: mouth 2 [place] hr capsule 00 (two) Medical times Branch daily. cyanocobala 2020-09 Yes [id number] 1000ug 1 mL by [facility] min 1,000 -09 Intramuscu ity of mcg/mL 00:00: lar route [place] injection 00 every 2 Medical (two) Branch weeks. levothyroxi 2020-09 Yes [id number] 50ug Take 1 [facility] ne 50 mcg -09 tablet by ity o f tablet 00:00: mouth [place] 00 every Medical morning. Branch fluticasone 2020-09 Yes [id number] 2{puff} Inhale 2 [facility] propionate 1-09 Puffs ity of (FLOVENT 00:00: every 12 [place] HFA) 110 00 (twelve) Medical mcg/actuati hours. Branch on inhaler Rinse mouth after each use. levalbutero 2020-09 Yes [id number] .63mg Inhale [facility] l 0.63 mg/3 1-09 0.63 mg 3 ity of mL 00:00: (three) [place] nebulizer 00 times Medical solution daily as Branch needed for Wheezing or Shortness of Breath. losartan 50 2020-09 Yes [id number] 50mg Take 1 [facility] mg tablet 1-09 tablet by ity o f 00:00: mouth 2 [place] 00 (two) Medical times Branch daily. clotrimazol 2020-09 Yes [id number] Apply to [facility] e-betametha -09 area(s) 2 ity of sone cream 00:00: (two) [place] 00 times Medical daily. Branch cyclobenzap 2020-09 Yes [id number] TAKE 1 [facility] rine 5 mg -09 TABLET BY ity o f tablet 00:00: MOUTH [place] 00 EVERY 8 Medical HOURS Branch NEEDED econazole 2020-09 Yes [id number] Apply to [facility] nitrate 1 % 09 area(s) 2 ity of cream 00:00: (two) [place] 00 times Medical daily. Branch albuterol 2020-09 Yes [id number] 2{puff} Inhale 2 [facility] (PROAIR 1-09 Puffs ity of HFA) 90 00:00: every 6 [place] mcg/actuati 00 (six) Medical on inhaler hours as Branc h needed for Wheezing or Shortness of Breath. triamcinolo 2020-09 Yes [id number] Apply to [facility] ne 0.025 % - area(s) 3 ity of ointment 00:00: (three) [place] 00 times Medical daily. For Branch itching diltiazem 2020-09 Yes [id number] 120mg Take 1 [facility] (CARTIA XT) -09 capsule by it y of 120 mg 24 00:00: mouth 2 [place] hr capsule 00 (two) Medical times Branch daily. cyanocobala 2020-09 Yes [id number] 1000ug 1 mL by [facility] min 1,000 -09 Intramuscu ity of mcg/mL 00:00: lar route [place] injection 00 every 2 Medical (two) Branch weeks. levothyroxi 2020-09 Yes [id number] 50ug Take 1 [facility] ne 50 mcg 1-09 tablet by ity o f tablet 00:00: mouth [place] 00 every Medical morning. Branch fluticasone 2020-09 Yes [id number] 2{puff} Inhale 2 [facility] propionate 1-09 Puffs ity of (FLOVENT 00:00: every 12 [place] HFA) 110 00 (twelve) Medical mcg/actuati hours. Branch on inhaler Rinse mouth after each use. levalbutero 2020-09 Yes [id number] .63mg Inhale [facility] l 0.63 mg/3 1-09 0.63 mg 3 ity of mL 00:00: (three) [place] nebulizer 00 times Medical solution daily as Branch needed for Wheezing or Shortness of Breath. losartan 50 2020-09 Yes [id number] 50mg Take 1 [facility] mg tablet 1-09 tablet by ity o f 00:00: mouth 2 [place] 00 (two) Medical times Branch daily. clotrimazol 2020-09 Yes [id number] Apply to [facility] e-betametha 09 area(s) 2 ity of sone cream 00:00: (two) [place] 00 times Medical daily. Branch cyclobenzap 2020-09 Yes [id number] TAKE 1 [facility] rine 5 mg 1-09 TABLET BY ity o f tablet 00:00: MOUTH [place] 00 EVERY 8 Medical HOURS Branch NEEDED econazole 2020-09 Yes [id number] Apply to [facility] nitrate 1 % 09 area(s) 2 ity of cream 00:00: (two) [place] 00 times Medical daily. Branch albuterol 2020-09 Yes [id number] 2{puff} Inhale 2 [facility] (PROAIR 1-09 Puffs ity of HFA) 90 00:00: every 6 [place] mcg/actuati 00 (six) Medical on inhaler hours as Branc h needed for Wheezing or Shortness of Breath. triamcinolo 2020-09 Yes [id number] Apply to [facility] ne 0.025 % -09 area(s) 3 ity of ointment 00:00: (three) [place] 00 times Medical daily. For Branch itching diltiazem 2020-09 Yes [id number] 120mg Take 1 [facility] n[facility] (CARTIA XT) -09 capsule by it y of 120 mg 24 00:00: mouth 2 [place] hr capsule 00 (two) Medical times Branch daily. cyanocobala 2020-09 Yes [id number] 1000ug 1 mL by [facility] min 1,000 1-09 Intramuscu ity of mcg/mL 00:00: lar route [place] injection 00 every 2 Medical (two) Branch weeks. levothyroxi 2020-09 Yes [id number] 50ug Take 1 [facility] ne 50 mcg 1-09 tablet by ity o f tablet 00:00: mouth [place] 00 every Medical morning. Branch fluticasone 2020-09 Yes [id number] 2{puff} Inhale 2 [facility] propionate 1-09 Puffs ity of (FLOVENT 00:00: every 12 [place] HFA) 110 00 (twelve) Medical mcg/actuati hours. Branch on inhaler Rinse mouth after each use. levalbutero 2020-09 Yes [id number] .63mg Inhale [facility] l 0.63 mg/3 1-09 0.63 mg 3 ity of mL 00:00: (three) [place] nebulizer 00 times Medical solution daily as Branch needed for Wheezing or Shortness of Breath. losartan 50 2020-09 Yes [id number] 50mg Take 1 [facility] mg tablet 1-09 tablet by ity o f 00:00: mouth 2 [place] 00 (two) Medical times Branch daily. clotrimazol 2020-09 Yes [id number] Apply to [facility] e-betametha 1-09 area(s) 2 ity of sone cream 00:00: (two) [place] 00 times Medical daily. Branch cyclobenzap 2020-09 Yes [id number] TAKE 1 [facility] rine 5 mg 1-09 TABLET BY ity o f tablet 00:00: MOUTH [place] 00 EVERY 8 Medical HOURS Branch NEEDED econazole 2020-09 Yes [id number] Apply to [facility] nitrate 1 % 1-09 area(s) 2 ity of cream 00:00: (two) [place] 00 times Medical daily. Branch albuterol 2020-09 Yes [id number] 2{puff} Inhale 2 [facility] (PROAIR 1-09 Puffs ity of HFA) 90 00:00: every 6 [place] mcg/actuati 00 (six) Medical on inhaler hours as Branc h needed for Wheezing or Shortness of Breath. triamcinolo 2020-09 Yes [id number] Apply to [facility] ne 0.025 % 10-04 area(s) 3 ity of ointment 00:00: (three) [place] 00 times Medical daily. For Branch itching diltiazem 2020-09 Yes [id number] 120mg Take 1 [facility] n[facility] (CARTIA XT) 10-04 capsule by it y of 120 mg 24 00:00: mouth 2 [place] hr capsule 00 (two) Medical times Branch daily. cyanocobala 2020-09 Yes [id number] 1000ug 1 mL by [facility] min 1,000 10-04 Intramuscu ity of mcg/mL 00:00: lar route [place] injection 00 every 2 Medical (two) Branch weeks. levothyroxi 2020-09 Yes [id number] 50ug Take 1 [facility] ne 50 mcg 10-04 tablet by ity o f tablet 00:00: mouth [place] 00 every Medical morning. Branch fluticasone 2020-09 Yes [id number] 2{puff} Inhale 2 [facility] propionate -09 Puffs ity of (FLOVENT 00:00: every 12 [place] HFA) 110 00 (twelve) Medical mcg/actuati hours. Branch on inhaler Rinse mouth after each use. levalbutero 2020-09 Yes [id number] .63mg Inhale [facility] l 0.63 mg/3 -09 0.63 mg 3 ity of mL 00:00: (three) [place] nebulizer 00 times Medical solution daily as Branch needed for Wheezing or Shortness of Breath. losartan 50 2020-09 Yes [id number] 50mg Take 1 [facility] mg tablet 09 tablet by ity o f 00:00: mouth 2 [place] 00 (two) Medical times Branch daily. clotrimazol 2020-09 Yes [id number] Apply to [facility] e-betametha 10-04 area(s) 2 ity of sone cream 00:00: (two) [place] 00 times Medical daily. Branch cyclobenzap 2020-09 Yes [id number] TAKE 1 [facility] rine 5 mg -09 TABLET BY ity o f tablet 00:00: MOUTH [place] 00 EVERY 8 Medical HOURS Branch NEEDED econazole 2020-09 Yes [id number] Apply to [facility] nitrate 1 % 10-04 area(s) 2 ity of cream 00:00: (two) [place] 00 times Medical daily. Branch albuterol 2020-09 Yes [id number] 2{puff} Inhale 2 [facility] (PROAIR 1-09 Puffs ity of HFA) 90 00:00: every 6 [place] mcg/actuati 00 (six) Medical on inhaler hours as Branc h needed for Wheezing or Shortness of Breath. triamcinolo 2020-09 Yes [id number] Apply to [facility] ne 0.025 % 1-09 area(s) 3 ity of ointment 00:00: (three) [place] 00 times Medical daily. For Branch itching diltiazem 2020-09 Yes [id number] 120mg Take 1 [facility] n[facility] (CARTIA XT) 09 capsule by it y of 120 mg 24 00:00: mouth 2 [place] hr capsule 00 (two) Medical times Branch daily. cyanocobala 2020-09 Yes [id number] 1000ug 1 mL by [facility] min 1,000 1-09 Intramuscu ity of mcg/mL 00:00: lar route [place] injection 00 every 2 Medical (two) Branch weeks. levothyroxi 2020-09 Yes [id number] 50ug Take 1 [facility] ne 50 mcg -09 tablet by ity o f tablet 00:00: mouth [place] 00 every Medical morning. Branch fluticasone 2020-09 Yes [id number] 2{puff} Inhale 2 [facility] propionate 1-09 Puffs ity of (FLOVENT 00:00: every 12 [place] HFA) 110 00 (twelve) Medical mcg/actuati hours. Branch on inhaler Rinse mouth after each use. levalbutero 2020-09 Yes [id number] .63mg Inhale [facility] l 0.63 mg/3 1-09 0.63 mg 3 ity of mL 00:00: (three) [place] nebulizer 00 times Medical solution daily as Branch needed for Wheezing or Shortness of Breath. losartan 50 2020-09 Yes [id number] 50mg Take 1 [facility] mg tablet -09 tablet by ity o f 00:00: mouth 2 [place] 00 (two) Medical times Branch daily. clotrimazol 2020-09 Yes [id number] Apply to [facility] e-betametha -09 area(s) 2 ity of sone cream 00:00: (two) [place] 00 times Medical daily. Branch cyclobenzap 2020-09 Yes [id number] TAKE 1 [facility] rine 5 mg 1-09 TABLET BY ity o f tablet 00:00: MOUTH [place] 00 EVERY 8 Medical HOURS Branch NEEDED econazole 2020-09 Yes [id number] Apply to [facility] nitrate 1 % 1-09 area(s) 2 ity of cream 00:00: (two) [place] 00 times Medical daily. Branch albuterol 2020-09 Yes [id number] 2{puff} Inhale 2 [facility] (PROAIR 1-09 Puffs ity of HFA) 90 00:00: every 6 [place] mcg/actuati 00 (six) Medical on inhaler hours as Branc h needed for Wheezing or Shortness of Breath. triamcinolo 2020-09 Yes [id number] Apply to [facility] ne 0.025 % 1-09 area(s) 3 ity of ointment 00:00: (three) [place] 00 times Medical daily. For Branch itching diltiazem 2020-09 Yes [id number] 120mg Take 1 [facility] n[facility] (CARTIA XT) 1-09 capsule by it y of 120 mg 24 00:00: mouth 2 [place] hr capsule 00 (two) Medical times Branch daily. cyanocobala 2020-09 Yes [id number] 1000ug 1 mL by [facility] min 1,000 1-09 Intramuscu ity of mcg/mL 00:00: lar route [place] injection 00 every 2 Medical (two) Branch weeks. levothyroxi 2020-09 Yes [id number] 50ug Take 1 [facility] ne 50 mcg 1-09 tablet by ity o f tablet 00:00: mouth [place] 00 every Medical morning. Branch fluticasone 2020-09 Yes [id number] 2{puff} Inhale 2 [facility] propionate 1-09 Puffs ity of (FLOVENT 00:00: every 12 [place] HFA) 110 00 (twelve) Medical mcg/actuati hours. Branch on inhaler Rinse mouth after each use. levalbutero 2020-09 Yes [id number] .63mg Inhale [facility] l 0.63 mg/3 1-09 0.63 mg 3 ity of mL 00:00: (three) [place] nebulizer 00 times Medical solution daily as Branch needed for Wheezing or Shortness of Breath. losartan 50 2020-09 Yes [id number] 50mg Take 1 [facility] mg tablet 1-09 tablet by ity o f 00:00: mouth 2 [place] 00 (two) Medical times Branch daily. clotrimazol 2020-09 Yes [id number] Apply to [facility] e-betametha 10-04 area(s) 2 ity of sone cream 00:00: (two) [place] 00 times Medical daily. Branch cyclobenzap 2020-09 Yes [id number] TAKE 1 [facility] rine 5 mg 10-04 TABLET BY ity o f tablet 00:00: MOUTH [place] 00 EVERY 8 Medical HOURS Branch NEEDED econazole 2020-09 Yes [id number] Apply to [facility] nitrate 1 % 10-04 area(s) 2 ity of cream 00:00: (two) [place] 00 times Medical daily. Branch albuterol 2020-09 Yes [id number] 2{puff} Inhale 2 [facility] (PROAIR 10-04 Puffs ity of HFA) 90 00:00: every 6 [place] mcg/actuati 00 (six) Medical on inhaler hours as Branc h needed for Wheezing or Shortness of Breath. triamcinolo 2020-09 Yes [id number] Apply to [facility] ne 0.025 % 10-04 area(s) 3 ity of ointment 00:00: (three) [place] 00 times Medical daily. For Branch itching diltiazem 2020-09 Yes [id number] 120mg Take 1 [facility] n[facility] (CARTIA XT) 10-04 capsule by it y of 120 mg 24 00:00: mouth 2 [place] hr capsule 00 (two) Medical times Branch daily. cyclobenzap 2020-09- No [id number] TAKE 1 [facility] rine 5 mg 10-0424 TABLET BY ity of tablet 00:00: 00:00 MOUTH [place] 00 :00 EVERY 8 Medical HOURS Branch NEEDED cyclobenzap 2020-09- No [id number] TAKE 1 [facility] rine 5 mg 10-0424 TABLET BY ity of tablet 00:00: 00:00 MOUTH [place] 00 :00 EVERY 8 Medical HOURS Branch NEEDED cyclobenzap 2020-09- No [id number] TAKE 1 [facility] rine 5 mg 10-0424 TABLET BY ity of tablet 00:00: 00:00 MOUTH [place] 00 :00 EVERY 8 Medical HOURS Branch NEEDED cyanocobala 2020-09- No [id number] 1000ug 1 mL by [facility] min 1,000 10-04 Intramuscu ity of mcg/mL 00:00: 00:00 lar route [place] injection 00 :00 every 2 Medical (two) Branch weeks. fluticasone 2020-09- No [id number] 2{puff} Inhale 2 [facility] propionate 10-04 Puffs ity of (FLOVENT 00:00: 00:00 every 12 [place] HFA) 110 00 :00 (twelve) Medical mcg/actuati hours. Branch on inhaler Rinse mouth after each use. clotrimazol 2020-09- No [id number] Apply to [facility] e-betametha 10-04 area(s) 2 it y of sone cream 00:00: 00:00 (two) [place] 00 :00 times Medical daily. Branch econazole 2020-09- No [id number] Apply to [facility] nitrate 1 % 10-04 area(s) 2 it y of cream 00:00: 00:00 (two) [place] 00 :00 times Medical daily. Branch triamcinolo 2020-09- No [id number] Apply to [facility] ne 0.025 % 10-04 area(s) 3 ity of ointment 00:00: 00:00 (three) [place] 00 :00 times Medical daily. For Branch itching fluticasone 2020-09- No [id number] 2{puff} Inhale 2 [facility] propionate 10-04 Puffs ity of (FLOVENT 00:00: 00:00 every 12 [place] HFA) 110 00 :00 (twelve) Medical mcg/actuati hours. Branch on inhaler Rinse mouth after each use. clotrimazol 2020-09- No [id number] Apply to [facility] e-betametha 10-04 area(s) 2 it y of sone cream 00:00: 00:00 (two) [place] 00 :00 times Medical daily. Branch econazole 2020-09- No [id number] Apply to [facility] nitrate 1 % 10-04 area(s) 2 it y of cream 00:00: 00:00 (two) [place] 00 :00 times Medical daily. Branch triamcinolo 2020-09- No [id number] Apply to [facility] ne 0.025 % 10-04 area(s) 3 ity of ointment 00:00: 00:00 (three) [place] 00 :00 times Medical daily. For Branch itching levothyroxi 2020-09- No [id number] 50ug Take 1 [facility] ne 50 mcg 10-04 tablet by ity of tablet 00:00: 00:00 mouth [place] 00 :00 every Medical morning. Branch losartan 50 2020-09- No [id number] 50mg Take 1 [facility] mg tablet 10-04 tablet by ity of 00:00: 00:00 mouth 2 [place] 00 :00 (two) Medical times Branch daily. diltiazem 2020-09- No [id number] 120mg Take 1 [facility] (CARTIA XT) 10-04 capsule by i ty of 120 mg 24 00:00: 00:00 mouth 2 [place] hr capsule 00 :00 (two) Medical times Branch daily. rosuvastati 2020-09- No [id number] 10mg Take 1 [facility] n 10 mg 10-04 tablet by ity of tablet 00:00: 00:00 mouth at [place] 00 :00 bedtime. Medical Branch rosuvastati 2020-09- No [id number] 10mg Take 1 [facility] n 10 mg 10-04 tablet by ity of tablet 00:00: 00:00 mouth at [place] 00 :00 bedtime. Medical Branch proMETHazin 2019- [...] Medical HOURS Branch NEEDED FOR NAUSEA proMETHazin 2019-2021- No TAKE 1 [facility] vers e 25 [...] 00:00: [place] 00 Medical Branch Ginkgo 2019-0 2023- No [facility] [place] 120 1-16 01-24 ity of mg Tab 00:00: 00:00 [place] 00 :00 Medical Branch Ginkgo 2019-0 2023- No [facility] [place] 120 1-16 01-24 ity of mg Tab 00:00: 00:00 [place] 00 :00 Medical Branch Ginkgo 2019-0 2023- No [facility] [place] 120 1-16 01-24 ity of mg Tab 00:00: 00:00 [place] 00 :00 Medical Branch FERROUS 2018-0 Yes [id number] TAKE ONE [facility] vers SULFATE 325 8-13 TABLET BY ity of mg (65 mg 00:00: MOUTH [place] iron) 00 THREE Medical tablet TIMES Branch DAILY WITH MEALS FERROUS 0 Yes [id number] TAKE ONE [facility] vers SULFATE 325 8-13 TABLET BY ity of mg (65 mg 00:00: MOUTH [place] iron) 00 THREE Medical tablet TIMES Branch DAILY WITH MEALS FERROUS 20180 Yes [id number] TAKE ONE [facility] vers SULFATE 325 8-13 TABLET BY ity of mg (65 mg 00:00: MOUTH [place] iron) 00 THREE Medical tablet TIMES Branch DAILY WITH MEALS FERROUS 20180 Yes [id number] TAKE ONE [facility] vers SULFATE 325 8-13 TABLET BY ity of mg (65 mg 00:00: MOUTH [place] iron) 00 THREE Medical tablet TIMES Branch DAILY WITH MEALS FERROUS Yes [id number] TAKE ONE [facility] vers SULFATE 325 8-13 TABLET BY ity of mg (65 mg 00:00: MOUTH [place] iron) 00 THREE Medical tablet TIMES Branch DAILY WITH MEALS FERROUS Yes [id number] TAKE ONE [facility] vers SULFATE 325 8-13 TABLET BY ity of mg (65 mg 00:00: MOUTH [place] iron) 00 THREE Medical tablet TIMES Branch DAILY WITH MEALS FERROUS Yes [id number] TAKE ONE [facility] vers SULFATE 325 8-13 TABLET BY ity of mg (65 mg 00:00: MOUTH [place] iron) 00 THREE Medical tablet TIMES Branch DAILY WITH MEALS FERROUS Yes [id number] TAKE ONE [facility] vers SULFATE 325 8-13 TABLET BY ity of mg (65 mg 00:00: MOUTH [place] iron) 00 THREE Medical tablet TIMES Branch DAILY WITH MEALS FERROUS Yes [id number] TAKE ONE [facility] vers SULFATE 325 8-13 TABLET BY ity of mg (65 mg 00:00: MOUTH [place] iron) 00 THREE Medical tablet TIMES Branch DAILY WITH MEALS FERROUS Yes [id number] TAKE ONE [facility] vers SULFATE 325 8-13 TABLET BY ity of mg (65 mg 00:00: MOUTH [place] iron) 00 THREE Medical tablet TIMES Branch DAILY WITH MEALS FERROUS Yes [id number] TAKE ONE [facility] vers SULFATE 325 8-13 TABLET BY ity of mg (65 mg 00:00: MOUTH [place] iron) 00 THREE Medical tablet TIMES Branch DAILY WITH MEALS FERROUS Yes [id number] TAKE ONE [facility] vers SULFATE 325 8-13 TABLET BY ity of mg (65 mg 00:00: MOUTH [place] iron) 00 THREE Medical tablet TIMES Branch DAILY WITH MEALS FERROUS Yes [id number] TAKE ONE [facility] vers SULFATE 325 8-13 TABLET BY ity of mg (65 mg 00:00: MOUTH [place] iron) 00 THREE Medical tablet TIMES Branch DAILY WITH MEALS FERROUS Yes [id number] TAKE ONE [facility] vers SULFATE 325 8-13 TABLET BY ity of mg (65 mg 00:00: MOUTH [place] iron) 00 THREE Medical tablet TIMES Branch DAILY WITH MEALS FERROUS Yes [id number] TAKE ONE [facility] vers SULFATE 325 8-13 TABLET BY ity of mg (65 mg 00:00: MOUTH [place] iron) 00 THREE Medical tablet TIMES Branch DAILY WITH MEALS FERROUS Yes [id number] TAKE ONE [facility] vers SULFATE 325 8-13 TABLET BY ity of mg (65 mg 00:00: MOUTH [place] iron) 00 THREE Medical tablet TIMES Branch DAILY WITH MEALS FERROUS Yes [id number] TAKE ONE [facility] vers SULFATE 325 8-13 TABLET BY ity of mg (65 mg 00:00: MOUTH [place] iron) 00 THREE Medical tablet TIMES Branch DAILY WITH MEALS FERROUS Yes [id number] TAKE ONE [facility] vers SULFATE 325 8-13 TABLET BY ity of mg (65 mg 00:00: MOUTH [place] iron) 00 THREE Medical tablet TIMES Branch DAILY WITH MEALS FERROUS Yes [id number] TAKE ONE [facility] vers SULFATE 325 8-13 TABLET BY ity of mg (65 mg 00:00: MOUTH [place] iron) 00 THREE Medical tablet TIMES Branch DAILY WITH MEALS FERROUS Yes [id number] TAKE ONE [facility] vers SULFATE 325 8-13 TABLET BY [facility] of mg (65 mg 00:00: MOUTH [place] [facility]) 00 THREE [facility] tablet TIMES Branch DAILY WITH MEALS FERROUS Yes [id number] TAKE ONE [facility] SULFATE 325 8-13 TABLET BY [facility] mg (65 mg 00:00: MOUTH [place] [facility]) 00 THREE Medical tablet TIMES Branch DAILY WITH MEALS FERROUS Yes [id number] TAKE ONE [facility] SULFATE 325 8-13 TABLET BY [facility] mg (65 mg 00:00: MOUTH [place] [facility]) 00 THREE Medical tablet TIMES Branch DAILY WITH MEALS FERROUS Yes [id number] TAKE ONE [facility] SULFATE 325 8-13 TABLET BY [facility] mg (65 mg 00:00: MOUTH [place] [facility]) 00 THREE Medical tablet TIMES Branch DAILY WITH MEALS FERROUS Yes [id number] TAKE ONE [facility] SULFATE 325 8-13 TABLET BY [facility] mg (65 mg 00:00: MOUTH [place] [facility]) 00 THREE Medical tablet TIMES Branch DAILY WITH MEALS FERROUS Yes [id number] TAKE ONE [facility] SULFATE 325 8-13 TABLET BY [facility] mg (65 mg 00:00: MOUTH [place] [facility]) 00 THREE Medical tablet TIMES Branch DAILY WITH MEALS FERROUS Yes [id number] TAKE ONE [facility] SULFATE 325 8-13 TABLET BY [facility] mg (65 mg 00:00: MOUTH [place] [facility]) 00 THREE Medical tablet TIMES Branch DAILY WITH MEALS FERROUS Yes [id number] TAKE ONE [facility] SULFATE 325 8-13 TABLET BY [facility] of mg (65 mg 00:00: MOUTH [place] [facility]) 00 THREE Medical tablet TIMES Branch DAILY WITH MEALS FERROUS Yes [id number] TAKE ONE [facility] SULFATE 325 8-13 TABLET BY [facility] of mg (65 mg 00:00: MOUTH [place] [facility]) 00 THREE Medical tablet TIMES Branch DAILY WITH MEALS FERROUS Yes [id number] TAKE ONE [facility] SULFATE 325 8-13 TABLET BY [facility] of mg (65 mg 00:00: MOUTH [place] [facility]) 00 THREE Medical tablet TIMES Branch DAILY WITH MEALS FERROUS Yes [id number] TAKE ONE [facility] SULFATE 325 8-13 TABLET BY [facility] mg (65 mg 00:00: MOUTH [place] [facility]) 00 THREE Medical tablet TIMES Branch DAILY WITH MEALS FERROUS Yes [id number] TAKE ONE [facility] SULFATE 325 8-13 TABLET BY [facility] of mg (65 mg 00:00: MOUTH [place] [facility]) 00 THREE Medical tablet TIMES Branch DAILY WITH MEALS FERROUS Yes [id number] TAKE ONE [facility] SULFATE 325 8-13 TABLET BY [facility] mg (65 mg 00:00: MOUTH [place] [facility]) 00 THREE Medical tablet TIMES Branch DAILY WITH MEALS FERROUS Yes [id number] TAKE ONE [facility] SULFATE 325 8-13 TABLET BY [facility] mg (65 mg 00:00: MOUTH [place] [facility]) 00 THREE Medical tablet TIMES Branch DAILY WITH MEALS FERROUS Yes [id number] TAKE ONE [facility] SULFATE 325 8-13 TABLET BY [facility] mg (65 mg 00:00: MOUTH [place] [facility]) 00 THREE Medical tablet TIMES Branch DAILY WITH MEALS FERROUS Yes [id number] TAKE ONE [facility] SULFATE 325 8-13 TABLET BY [facility] mg (65 mg 00:00: MOUTH [place] [facility]) 00 THREE Medical tablet TIMES Branch DAILY WITH MEALS FERROUS Yes [id number] TAKE ONE [facility] SULFATE 325 8-13 TABLET BY [facility] mg (65 mg 00:00: MOUTH [place] [facility]) 00 THREE Medical tablet TIMES Branch DAILY WITH MEALS FERROUS Yes [id number] TAKE ONE [facility] SULFATE 325 8-13 TABLET BY [facility] mg (65 mg 00:00: MOUTH [place] [facility]) 00 THREE Medical tablet TIMES Branch DAILY WITH MEALS FERROUS Yes [id number] TAKE ONE [facility] SULFATE 325 8-13 TABLET BY [facility] mg (65 mg 00:00: MOUTH [place] [facility]) 00 THREE Medical tablet TIMES Branch DAILY WITH MEALS FERROUS Yes [id number] TAKE ONE [facility] SULFATE 325 8-13 TABLET BY [facility] mg (65 mg 00:00: MOUTH [place] [facility]) 00 THREE Medical tablet TIMES Branch DAILY WITH MEALS FERROUS Yes [id number] TAKE ONE [facility] SULFATE 325 8-13 TABLET BY [facility] mg (65 mg 00:00: MOUTH [place] [facility]) 00 THREE Medical tablet TIMES Branch DAILY WITH MEALS FERROUS Yes [id number] TAKE ONE [facility] SULFATE 325 8-13 TABLET BY [facility] mg (65 mg 00:00: MOUTH [place] [facility]) 00 THREE Medical tablet TIMES Branch DAILY WITH MEALS FERROUS Yes [id number] TAKE ONE [facility] SULFATE 325 8-13 TABLET BY [facility] mg (65 mg 00:00: MOUTH [place] [facility]) 00 THREE Medical tablet TIMES Branch DAILY WITH MEALS FERROUS Yes [id number] TAKE ONE [facility] SULFATE 325 8-13 TABLET BY [facility] mg (65 mg 00:00: MOUTH [place] [facility]) 00 THREE Medical tablet TIMES Branch DAILY WITH MEALS FERROUS Yes [id number] TAKE ONE [facility] SULFATE 325 8-13 TABLET BY [facility] mg (65 mg 00:00: MOUTH [place] [facility]) 00 THREE Medical tablet TIMES Branch DAILY WITH MEALS FERROUS Yes [id number] TAKE ONE [facility] SULFATE 325 8-13 TABLET BY [facility] mg (65 mg 00:00: MOUTH [place] [facility]) 00 THREE Medical tablet TIMES Branch DAILY WITH MEALS FERROUS Yes [id number] TAKE ONE [facility] SULFATE 325 8-13 TABLET BY [facility] mg (65 mg 00:00: MOUTH [place] [facility]) 00 THREE Medical tablet TIMES Branch DAILY WITH MEALS FERROUS Yes [id number] TAKE ONE [facility] SULFATE 325 8-13 TABLET BY [facility] mg (65 mg 00:00: MOUTH [place] [facility]) 00 THREE Medical tablet TIMES Branch DAILY WITH MEALS FERROUS Yes [id number] TAKE ONE [facility] SULFATE 325 8-13 TABLET BY [facility] mg (65 mg 00:00: MOUTH [place] [facility]) 00 THREE Medical tablet TIMES Branch DAILY WITH MEALS FERROUS Yes [id number] TAKE ONE [facility] SULFATE 325 8-13 TABLET BY [facility] mg (65 mg 00:00: MOUTH [place] [facility]) 00 THREE Medical tablet TIMES Branch DAILY WITH MEALS FERROUS Yes [id number] TAKE ONE [facility] SULFATE 325 8-13 TABLET BY [facility] mg (65 mg 00:00: MOUTH [place] [facility]) 00 THREE Medical tablet TIMES Branch DAILY WITH MEALS FERROUS 2018-0 Yes [id number] TAKE ONE [facility] SULFATE 325 8-13 TABLET BY [facility] mg (65 mg 00:00: MOUTH [place] [facility]) 00 THREE Medical tablet TIMES Branch DAILY WITH MEALS FERROUS 0 Yes [id number] TAKE ONE [facility] SULFATE 325 8-13 TABLET BY [facility] mg (65 mg 00:00: MOUTH [place] [facility]) 00 THREE Medical tablet TIMES Branch DAILY WITH MEALS FERROUS Yes [id number] TAKE ONE [facility] SULFATE 325 8-13 TABLET BY [facility] mg (65 mg 00:00: MOUTH [place] [facility]) 00 THREE Medical tablet TIMES Branch DAILY WITH MEALS FERROUS Yes [id number] TAKE ONE [facility] SULFATE 325 8-13 TABLET BY [facility] mg (65 mg 00:00: MOUTH [place] [facility]) 00 THREE Medical tablet TIMES Branch DAILY WITH MEALS FERROUS Yes [id number] TAKE ONE [facility] SULFATE 325 8-13 TABLET BY [facility] mg (65 mg 00:00: MOUTH [place] [facility]) 00 THREE Medical tablet TIMES Branch DAILY WITH MEALS FERROUS Yes [id number] TAKE ONE [facility] SULFATE 325 8-13 TABLET BY [facility] mg (65 mg 00:00: MOUTH [place] [facility]) 00 THREE Medical tablet TIMES Branch DAILY WITH MEALS FERROUS Yes [id number] TAKE ONE [facility] SULFATE 325 8-13 TABLET BY [facility] mg (65 mg 00:00: MOUTH [place] [facility]) 00 THREE Medical tablet TIMES Branch DAILY WITH MEALS FERROUS Yes [id number] TAKE ONE [facility] SULFATE 325 8-13 TABLET BY [facility] mg (65 mg 00:00: MOUTH [place] [facility]) 00 THREE Medical tablet TIMES Branch DAILY WITH MEALS FERROUS Yes [id number] TAKE ONE [facility] SULFATE 325 8-13 TABLET BY [facility] mg (65 mg 00:00: MOUTH [place] [facility]) 00 THREE Medical tablet TIMES Branch DAILY WITH MEALS FERROUS Yes [id number] TAKE ONE [facility] SULFATE 325 8-13 TABLET BY [facility] mg (65 mg 00:00: MOUTH [place] [facility]) 00 THREE Medical tablet TIMES Branch DAILY WITH MEALS FERROUS Yes [id number] TAKE ONE [facility] SULFATE 325 8-13 TABLET BY [facility] mg (65 mg 00:00: MOUTH [place] [facility]) 00 THREE Medical tablet TIMES Branch DAILY WITH MEALS FERROUS Yes [id number] TAKE ONE [facility] SULFATE 325 8-13 TABLET BY [facility] mg (65 mg 00:00: MOUTH [place] [facility]) 00 THREE Medical tablet TIMES Branch DAILY WITH MEALS FERROUS Yes [id number] TAKE ONE [facility] SULFATE 325 8-13 TABLET BY [facility] mg (65 mg 00:00: MOUTH [place] [facility]) 00 THREE Medical tablet TIMES Branch DAILY WITH MEALS FERROUS Yes [id number] TAKE ONE [facility] SULFATE 325 8-13 TABLET BY [facility] mg (65 mg 00:00: MOUTH [place] [facility]) 00 THREE Medical tablet TIMES Branch DAILY WITH MEALS FERROUS Yes [id number] TAKE ONE [facility] SULFATE 325 8-13 TABLET BY [facility] mg (65 mg 00:00: MOUTH [place] [facility]) 00 THREE Medical tablet TIMES Branch DAILY WITH MEALS FERROUS Yes [id number] TAKE ONE [facility] SULFATE 325 8-13 TABLET BY [facility] mg (65 mg 00:00: MOUTH [place] [facility]) 00 THREE Medical tablet TIMES Branch DAILY WITH MEALS FERROUS Yes [id number] TAKE ONE [facility] SULFATE 325 8-13 TABLET BY [facility] mg (65 mg 00:00: MOUTH [place] [facility]) 00 THREE Medical tablet TIMES Branch DAILY WITH MEALS FERROUS Yes [id number] TAKE ONE [facility] SULFATE 325 8-13 TABLET BY [facility] mg (65 mg 00:00: MOUTH [place] [facility]) 00 THREE Medical tablet TIMES Branch DAILY WITH MEALS FERROUS Yes [id number] TAKE ONE [facility] SULFATE 325 8-13 TABLET BY [facility] mg (65 mg 00:00: MOUTH [place] [facility]) 00 THREE Medical tablet TIMES Branch DAILY WITH MEALS FERROUS Yes [id number] TAKE ONE [facility] SULFATE 325 8-13 TABLET BY [facility] mg (65 mg 00:00: MOUTH [place] [facility]) 00 THREE Medical tablet TIMES Branch DAILY WITH MEALS FERROUS Yes [id number] TAKE ONE [facility] SULFATE 325 8-13 TABLET BY [facility] mg (65 mg 00:00: MOUTH [place] [facility]) 00 THREE Medical tablet TIMES Branch DAILY WITH MEALS FERROUS Yes [id number] TAKE ONE [facility] SULFATE 325 8-13 TABLET BY [facility] of mg (65 mg 00:00: MOUTH [place] [facility]) 00 THREE Medical tablet TIMES Branch DAILY WITH MEALS FERROUS Yes [id number] TAKE ONE [facility] SULFATE 325 8-13 TABLET BY [facility] of mg (65 mg 00:00: MOUTH [place] [facility]) 00 THREE Medical tablet TIMES Branch DAILY WITH MEALS FERROUS Yes [id number] TAKE ONE [facility] SULFATE 325 8-13 TABLET BY [facility] of mg (65 mg 00:00: MOUTH [place] [facility]) 00 THREE Medical tablet TIMES Branch DAILY WITH MEALS FERROUS Yes [id number] TAKE ONE [facility] SULFATE 325 8-13 TABLET BY [facility] of mg (65 mg 00:00: MOUTH [place] [facility]) 00 THREE Medical tablet TIMES Branch DAILY WITH MEALS FERROUS Yes [id number] TAKE ONE [facility] SULFATE 325 8-13 TABLET BY [facility] of mg (65 mg 00:00: MOUTH [place] [facility]) 00 THREE Medical tablet TIMES Branch DAILY WITH MEALS FERROUS Yes [id number] TAKE ONE [facility] SULFATE 325 8-13 TABLET BY [facility] of mg (65 mg 00:00: MOUTH [place] [facility]) 00 THREE Medical tablet TIMES Branch DAILY WITH MEALS FERROUS 2022- No [id number] TAKE ONE [facility] SULFATE 325 8-13 01-24 TABLET BY it y of mg (65 mg 00:00: 00:00 MOUTH [place] [facility]) 00 :00 THREE Medical tablet TIMES Branch DAILY WITH MEALS FERROUS 2022- No [id number] TAKE ONE [facility] SULFATE 325 8-13 01-24 TABLET BY it y of mg (65 mg 00:00: 00:00 MOUTH [place] [facility]) 00 :00 THREE Medical tablet TIMES Branch DAILY WITH MEALS FERROUS 2022- No [id number] TAKE ONE [facility] SULFATE 325 8-13 01-24 TABLET BY it y of mg (65 mg 00:00: 00:00 MOUTH [place] [facility]) 00 :00 THREE Medical tablet TIMES Branch DAILY WITH MEALS coQ10, Yes [id number] 1{capsu Take 1 U nivers ubiquinol, 1-16 le} capsule by ity of 100 mg Cap 00:00: mouth [place] 00 daily. [facility] coQ10, Yes [id number] 1{capsu Take 1 U nivers ubiquinol, 1-16 le} capsule by ity of 100 mg Cap 00:00: mouth [place] 00 daily. [facility] coQ10, Yes [id number] 1{capsu Take 1 U nivers ubiquinol, 1-16 le} capsule by ity of 100 mg Cap 00:00: mouth [place] 00 daily. [facility] coQ10, Yes [id number] 1{capsu Take 1 U nivers ubiquinol, 1-16 le} capsule by ity of 100 mg Cap 00:00: mouth [place] 00 daily. [facility] coQ10, Yes [id number] 1{capsu Take 1 U nivers ubiquinol, 1-16 le} capsule by ity of 100 mg Cap 00:00: mouth [place] 00 daily. [facility] coQ10, Yes [id number] 1{capsu Take 1 U nivers ubiquinol, 1-16 le} capsule by ity of 100 mg Cap 00:00: mouth [place] 00 daily. [facility] Branch coQ10, Yes [id number] 1{capsu Take 1 U nivers ubiquinol, 1-16 le} capsule by ity of 100 mg Cap 00:00: mouth [place] 00 daily. [facility] coQ10, Yes [id number] 1{capsu Take 1 U nivers ubiquinol, 1-16 le} capsule by ity of 100 mg Cap 00:00: mouth [place] 00 daily. [facility] coQ10, Yes [id number] 1{capsu Take 1 U nivers ubiquinol, 1-16 le} capsule by ity of 100 mg Cap 00:00: mouth [place] 00 daily. Medical Branch coQ10, Yes [id number] 1{capsu Take 1 U nivers ubiquinol, 1-16 le} capsule by ity of 100 mg Cap 00:00: mouth [place] 00 daily. [facility] Branch coQ10, Yes [id number] 1{capsu Take 1 U nivers ubiquinol, 1-16 le} capsule by ity of 100 mg Cap 00:00: mouth [place] 00 daily. [facility] Branch coQ10, Yes [id number] 1{capsu Take 1 U nivers ubiquinol, 1-16 le} capsule by ity of 100 mg Cap 00:00: mouth [place] 00 daily. Medical Branch coQ10, Yes [id number] 1{capsu Take 1 U nivers ubiquinol, 1-16 le} capsule by ity of 100 mg Cap 00:00: mouth [place] 00 daily. [facility] coQ10, Yes [id number] 1{capsu Take 1 U nivers ubiquinol, 1-16 le} capsule by ity of 100 mg Cap 00:00: mouth [place] 00 daily. [facility] coQ10, Yes [id number] 1{capsu Take 1 U nivers ubiquinol, 1-16 le} capsule by ity of 100 mg Cap 00:00: mouth [place] 00 daily. Medical Branch coQ10, Yes [id number] 1{capsu Take 1 U nivers ubiquinol, 1-16 le} capsule by ity of 100 mg Cap 00:00: mouth [place] 00 daily. [facility] coQ10, Yes [id number] 1{capsu Take 1 U nivers ubiquinol, 1-16 le} capsule by ity of 100 mg Cap 00:00: mouth [place] 00 daily. [facility] Branch coQ10, Yes [id number] 1{capsu Take 1 U nivers ubiquinol, 1-16 le} capsule by ity of 100 mg Cap 00:00: mouth [place] 00 daily. [facility] Branch coQ10, Yes [id number] 1{capsu Take 1 U nivers ubiquinol, 1-16 le} capsule by ity of 100 mg Cap 00:00: mouth [place] 00 daily. [facility] Branch coQ10, Yes [id number] 1{capsu Take 1 U nivers ubiquinol, 1-16 le} capsule by ity of 100 mg Cap 00:00: mouth [place] 00 daily. [facility] Branch coQ10, Yes [id number] 1{capsu Take 1 U nivers ubiquinol, 1-16 le} capsule by ity of 100 mg Cap 00:00: mouth [place] 00 daily. [facility] coQ10, Yes [id number] 1{capsu Take 1 U nivers ubiquinol, 1-16 le} capsule by ity of 100 mg Cap 00:00: mouth [place] 00 daily. [facility] coQ10, Yes [id number] 1{capsu Take 1 U nivers ubiquinol, 1-16 le} capsule by ity of 100 mg Cap 00:00: mouth [place] 00 daily. [facility] Branch coQ10, Yes [id number] 1{capsu Take 1 U nivers ubiquinol, 1-16 le} capsule by ity of 100 mg Cap 00:00: mouth [place] 00 daily. [facility] Branch coQ10, Yes [id number] 1{capsu Take 1 U nivers ubiquinol, 1-16 le} capsule by ity of 100 mg Cap 00:00: mouth [place] 00 daily. [facility] Branch coQ10, Yes [id number] 1{capsu Take 1 U nivers ubiquinol, 1-16 le} capsule by ity of 100 mg Cap 00:00: mouth [place] 00 daily. [facility] coQ10, Yes [id number] 1{capsu Take 1 U nivers ubiquinol, 1-16 le} capsule by ity of 100 mg Cap 00:00: mouth [place] 00 daily. [facility] coQ10, Yes [id number] 1{capsu Take 1 U nivers ubiquinol, 1-16 le} capsule by ity of 100 mg Cap 00:00: mouth [place] 00 daily. [facility] Branch coQ10, Yes [id number] 1{capsu Take 1 U nivers ubiquinol, 1-16 le} capsule by ity of 100 mg Cap 00:00: mouth [place] 00 daily. [facility] Branch coQ10, Yes [id number] 1{capsu Take 1 U nivers ubiquinol, 1-16 le} capsule by ity of 100 mg Cap 00:00: mouth [place] 00 daily. Medical Branch coQ10, Yes [id number] 1{capsu Take 1 U nivers ubiquinol, 1-16 le} capsule by ity of 100 mg Cap 00:00: mouth [place] 00 daily. [facility] Branch coQ10, Yes [id number] 1{capsu Take 1 U nivers ubiquinol, 1-16 le} capsule by ity of 100 mg Cap 00:00: mouth [place] 00 daily. [facility] Branch coQ10, Yes [id number] 1{capsu Take 1 U nivers ubiquinol, 1-16 le} capsule by ity of 100 mg Cap 00:00: mouth [place] 00 daily. [facility] Branch coQ10, Yes [id number] 1{capsu Take 1 U nivers ubiquinol, 1-16 le} capsule by ity of 100 mg Cap 00:00: mouth [place] 00 daily. [facility] Branch coQ10, Yes [id number] 1{capsu Take 1 U nivers ubiquinol, 1-16 le} capsule by ity of 100 mg Cap 00:00: mouth [place] 00 daily. [facility] Branch coQ10, Yes [id number] 1{capsu Take 1 U nivers ubiquinol, 1-16 le} capsule by ity of 100 mg Cap 00:00: mouth [place] 00 daily. [facility] Branch coQ10, Yes [id number] 1{capsu Take 1 U nivers ubiquinol, 1-16 le} capsule by ity of 100 mg Cap 00:00: mouth [place] 00 daily. Medical Branch coQ10, Yes [id number] 1{capsu Take 1 U nivers ubiquinol, 1-16 le} capsule by ity of 100 mg Cap 00:00: mouth [place] 00 daily. [facility] Branch coQ10, Yes [id number] 1{capsu Take 1 U nivers ubiquinol, 1-16 le} capsule by ity of 100 mg Cap 00:00: mouth [place] 00 daily. Medical Branch coQ10, Yes [id number] 1{capsu Take 1 U nivers ubiquinol, 1-16 le} capsule by ity of 100 mg Cap 00:00: mouth [place] 00 daily. [facility] Branch coQ10, Yes [id number] 1{capsu Take 1 U nivers ubiquinol, 1-16 le} capsule by ity of 100 mg Cap 00:00: mouth [place] 00 daily. Medical Branch coQ10, Yes [id number] 1{capsu Take 1 U nivers ubiquinol, 1-16 le} capsule by ity of 100 mg Cap 00:00: mouth [place] 00 daily. [facility] Branch coQ10, Yes [id number] 1{capsu Take 1 U nivers ubiquinol, 1-16 le} capsule by ity of 100 mg Cap 00:00: mouth [place] 00 daily. [facility] Branch coQ10, Yes [id number] 1{capsu Take 1 U nivers ubiquinol, 1-16 le} capsule by ity of 100 mg Cap 00:00: mouth [place] 00 daily. [facility] Branch coQ10, Yes [id number] 1{capsu Take 1 U nivers ubiquinol, 1-16 le} capsule by ity of 100 mg Cap 00:00: mouth [place] 00 daily. [facility] Branch coQ10, Yes [id number] 1{capsu Take 1 U nivers ubiquinol, 1-16 le} capsule by ity of 100 mg Cap 00:00: mouth [place] 00 daily. [facility] Branch coQ10, Yes [id number] 1{capsu Take 1 U nivers ubiquinol, 1-16 le} capsule by ity of 100 mg Cap 00:00: mouth [place] 00 daily. [facility] Branch coQ10, Yes [id number] 1{capsu Take 1 U nivers ubiquinol, 1-16 le} capsule by ity of 100 mg Cap 00:00: mouth [place] 00 daily. [facility] Branch coQ10, Yes [id number] 1{capsu Take 1 U nivers ubiquinol, 1-16 le} capsule by ity of 100 mg Cap 00:00: mouth [place] 00 daily. [facility] Branch coQ10, Yes [id number] 1{capsu Take 1 U nivers ubiquinol, 1-16 le} capsule by ity of 100 mg Cap 00:00: mouth [place] 00 daily. [facility] Branch coQ10, Yes [id number] 1{capsu Take 1 U nivers ubiquinol, 1-16 le} capsule by ity of 100 mg Cap 00:00: mouth [place] 00 daily. [facility] Branch coQ10, Yes [id number] 1{capsu Take 1 U nivers ubiquinol, 1-16 le} capsule by ity of 100 mg Cap 00:00: mouth [place] 00 daily. [facility] Branch coQ10, Yes [id number] 1{capsu Take 1 U nivers ubiquinol, 1-16 le} capsule by ity of 100 mg Cap 00:00: mouth [place] 00 daily. [facility] Branch coQ10, Yes [id number] 1{capsu Take 1 U nivers ubiquinol, 1-16 le} capsule by ity of 100 mg Cap 00:00: mouth [place] 00 daily. [facility] Branch coQ10, Yes [id number] 1{capsu Take 1 U nivers ubiquinol, 1-16 le} capsule by ity of 100 mg Cap 00:00: mouth [place] 00 daily. [facility] Branch coQ10, Yes [id number] 1{capsu Take 1 U nivers ubiquinol, 1-16 le} capsule by ity of 100 mg Cap 00:00: mouth [place] 00 daily. [facility] coQ10, Yes [id number] 1{capsu Take 1 U nivers ubiquinol, 1-16 le} capsule by ity of 100 mg Cap 00:00: mouth [place] 00 daily. [facility] Branch coQ10, Yes [id number] 1{capsu Take 1 U nivers ubiquinol, 1-16 le} capsule by ity of 100 mg Cap 00:00: mouth [place] 00 daily. [facility] Branch coQ10, Yes [id number] 1{capsu Take 1 U nivers ubiquinol, 1-16 le} capsule by ity of 100 mg Cap 00:00: mouth [place] 00 daily. [facility] Branch coQ10, Yes [id number] 1{capsu Take 1 U nivers ubiquinol, 1-16 le} capsule by ity of 100 mg Cap 00:00: mouth [place] 00 daily. [facility] coQ10, Yes [id number] 1{capsu Take 1 U nivers ubiquinol, 1-16 le} capsule by ity of 100 mg Cap 00:00: mouth [place] 00 daily. [facility] coQ10, Yes [id number] 1{capsu Take 1 U nivers ubiquinol, 1-16 le} capsule by ity of 100 mg Cap 00:00: mouth [place] 00 daily. [facility] coQ10, Yes [id number] 1{capsu Take 1 U nivers ubiquinol, 1-16 le} capsule by ity of 100 mg Cap 00:00: mouth [place] 00 daily. [facility] coQ10, Yes [id number] 1{capsu Take 1 U nivers ubiquinol, 1-16 le} capsule by ity of 100 mg Cap 00:00: mouth [place] 00 daily. [facility] coQ10, Yes [id number] 1{capsu Take 1 U nivers ubiquinol, 1-16 le} capsule by ity of 100 mg Cap 00:00: mouth [place] 00 daily. [facility] coQ10, Yes [id number] 1{capsu Take 1 U nivers ubiquinol, 1-16 le} capsule by ity of 100 mg Cap 00:00: mouth [place] 00 daily. [facility] coQ10, Yes [id number] 1{capsu Take 1 U nivers ubiquinol, 1-16 le} capsule by ity of 100 mg Cap 00:00: mouth [place] 00 daily. [facility] coQ10, Yes [id number] 1{capsu Take 1 U nivers ubiquinol, 1-16 le} capsule by ity of 100 mg Cap 00:00: mouth [place] 00 daily. [facility] coQ10, Yes [id number] 1{capsu Take 1 U nivers ubiquinol, 1-16 le} capsule by ity of 100 mg Cap 00:00: mouth [place] 00 daily. [facility] coQ10, Yes [id number] 1{capsu Take 1 U nivers ubiquinol, 1-16 le} capsule by ity of 100 mg Cap 00:00: mouth [place] 00 daily. [facility] coQ10, Yes [id number] 1{capsu Take 1 U nivers ubiquinol, 1-16 le} capsule by ity of 100 mg Cap 00:00: mouth [place] 00 daily. [facility] coQ10, Yes [id number] 1{capsu Take 1 U nivers ubiquinol, 1-16 le} capsule by ity of 100 mg Cap 00:00: mouth [place] 00 daily. [facility] coQ10, Yes [id number] 1{capsu Take 1 U nivers ubiquinol, 1-16 le} capsule by ity of 100 mg Cap 00:00: mouth [place] 00 daily. [facility] coQ10, Yes [id number] 1{capsu Take 1 U nivers ubiquinol, 1-16 le} capsule by ity of 100 mg Cap 00:00: mouth [place] 00 daily. [facility] Branch coQ10, Yes [id number] 1{capsu Take 1 U nivers ubiquinol, 1-16 le} capsule by ity of 100 mg Cap 00:00: mouth [place] 00 daily. [facility] Branch coQ10, Yes [id number] 1{capsu Take 1 U nivers ubiquinol, 1-16 le} capsule by ity of 100 mg Cap 00:00: mouth [place] 00 daily. [facility] coQ10, Yes [id number] 1{capsu Take 1 U nivers ubiquinol, 1-16 le} capsule by ity of 100 mg Cap 00:00: mouth [place] 00 daily. [facility] coQ10, Yes [id number] 1{capsu Take 1 U nivers ubiquinol, 1-16 le} capsule by ity of 100 mg Cap 00:00: mouth [place] 00 daily. [facility] coQ10, Yes [id number] 1{capsu Take 1 U nivers ubiquinol, 1-16 le} capsule by ity of 100 mg Cap 00:00: mouth [place] 00 daily. [facility] coQ10, Yes [id number] 1{capsu Take 1 U nivers ubiquinol, 1-16 le} capsule by ity of 100 mg Cap 00:00: mouth [place] 00 daily. [facility] coQ10, Yes [id number] 1{capsu Take 1 U nivers ubiquinol, 1-16 le} capsule by ity of 100 mg Cap 00:00: mouth [place] 00 daily. [facility] Branch coQ10, Yes [id number] 1{capsu Take 1 U nivers ubiquinol, 1-16 le} capsule by ity of 100 mg Cap 00:00: mouth [place] 00 daily. [facility] Branch coQ10, Yes [id number] 1{capsu Take 1 U nivers ubiquinol, 1-16 le} capsule by ity of 100 mg Cap 00:00: mouth [place] 00 daily. [facility] Branch coQ10, Yes [id number] 1{capsu Take 1 U nivers ubiquinol, 1-16 le} capsule by ity of 100 mg Cap 00:00: mouth [place] 00 daily. [facility] Branch coQ10, Yes [id number] 1{capsu Take 1 U nivers ubiquinol, 1-16 le} capsule by ity of 100 mg Cap 00:00: mouth [place] 00 daily. [facility] coQ10, Yes [id number] 1{capsu Take 1 U nivers ubiquinol, 1-16 le} capsule by ity of 100 mg Cap 00:00: mouth [place] 00 daily. [facility] coQ10, Yes [id number] 1{capsu Take 1 U nivers ubiquinol, 1-16 le} capsule by ity of 100 mg Cap 00:00: mouth [place] 00 daily. [facility] Branch coQ10, Yes [id number] 1{capsu Take 1 U nivers ubiquinol, 1-16 le} capsule by ity of 100 mg Cap 00:00: mouth [place] 00 daily. [facility] coQ10, Yes [id number] 1{capsu Take 1 U nivers ubiquinol, 1-16 le} capsule by ity of 100 mg Cap 00:00: mouth [place] 00 daily. [facility] coQ10, Yes [id number] 1{capsu Take 1 U nivers ubiquinol, 1-16 le} capsule by ity of 100 mg Cap 00:00: mouth [place] 00 daily. [facility] coQ10, Yes [id number] 1{capsu Take 1 U nivers ubiquinol, 1-16 le} capsule by ity of 100 mg Cap 00:00: mouth [place] [address] [facility] coQ10, 2018-0 Yes [id number] 1{capsu Take 1 U nivers ubiquinol, 1-16 le} capsule by ity of 100 mg Cap 00:00: mouth [place] 00 daily. [facility] loratadine Yes [id number] 10mg Take 1 [facility] 10 mg 1-23 tablet by ity of tablet 00:00: mouth [place] [address] [facility] loratadine Yes [id number] 10mg Take 1 [facility] 10 mg 1-23 tablet by ity of tablet 00:00: mouth [place] [address] [facility] loratadine Yes [id number] 10mg Take 1 [facility] 10 mg 1-23 tablet by ity of tablet 00:00: mouth [place] [address] [facility] loratadine Yes [id number] 10mg Take 1 [facility] 10 mg 1-23 tablet by ity of tablet 00:00: mouth [place] [address] [facility] loratadine Yes [id number] 10mg Take 1 [facility] 10 mg 1-23 tablet by ity of tablet 00:00: mouth [place] [address] [facility] loratadine 2021- No [id number] 10mg Take 1 [facility] 10 mg 1-23 06-13 tablet by ity of tablet 00:00: 00:00 mouth [place] 00 :[address] 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) SARS-COV-2 COVID-19 2022-07-27 Completed [facility]ive [facility]ity of [facility] VACCINE 00:00:00 [facility] 12 YRS+, BIVALENT Branch 0.3ML, IM, (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) SARS-COV-2 COVID-19 2022-07-27 Completed [facility]ive [facility]ity of [facility] VACCINE 00:00:00 [facility] 12 YRS+, BIVALENT Branch 0.3ML, IM, (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) SARS-COV-2 COVID-19 2022-07-27 Completed [facility]ive rsity of [facility] VACCINE 00:00:00 [facility] 12 YRS+, BIVALENT Branch 0.3ML, IM, (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) SARS-COV-2 COVID-19 2022-07-27 Completed [facility]ive rsity of [facility] VACCINE 00:00:00 [facility] 12 YRS+, BIVALENT Branch 0.3ML, IM, (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) SARS-COV-2 COVID-19 2022-07-27 Completed [facility]ive rsity of [facility] VACCINE 00:00:00 [facility] 12 YRS+, BIVALENT Branch 0.3ML, IM, (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) SARS-COV-2 COVID-19 2022-07-27 Completed [facility]ity of [facility] VACCINE 00:00:00 [facility] 12 YRS+, BIVALENT Branch 0.3ML, IM, (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) SARS-COV-2 COVID-19 2022-07-27 Completed [facility]ive [facility]ity of [facility] VACCINE 00:00:00 [facility] 12 YRS+, BIVALENT Branch 0.3ML, IM, (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) SARS-COV-2 COVID-19 2022-07-27 Completed [facility]ive rsity of [facility] VACCINE 00:00:00 [facility] 12 YRS+, BIVALENT Branch 0.3ML, IM, (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) SARS-COV-2 COVID-19 2022-07-27 Completed [facility]ive rsity of [facility] VACCINE 00:00:00 [facility] 12 YRS+, BIVALENT Branch 0.3ML, IM, (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) SARS-COV-2 COVID-19 2022-07-27 Completed [facility]ive rsity of [facility] VACCINE 00:00:00 [facility] 12 YRS+, BIVALENT Branch 0.3ML, IM, (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) SARS-COV-2 COVID-19 2022-07-27 Completed [facility]ive rsity of [facility] VACCINE 00:00:00 [facility] 12 YRS+, BIVALENT Branch 0.3ML, IM, (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) SARS-COV-2 COVID-19 2022-07-27 Completed [facility]ive rsity of [facility] VACCINE 00:00:00 [facility] 12 YRS+, BIVALENT Branch 0.3ML, IM, (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) SARS-COV-2 COVID-19 2022-07-27 Completed [facility]ive rsity of [facility]CR[facility] VACCINE 00:00:00 [facility] 12 YRS+, BIVALENT Branch 0.3ML, IM, (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) SARS-COV-2 COVID-19 2022-07-27 Completed [facility] rsity of [facility] VACCINE 00:00:00 [facility] 12 YRS+, BIVALENT Branch 0.3ML, IM, (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) SARS-COV-2 COVID-19 2022-07-27 Completed [facility]ive rsity of [facility]CR[facility] VACCINE 00:00:00 [facility] 12 YRS+, BIVALENT Branch 0.3ML, IM, (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) SARS-COV-2 COVID-19 2022-07-27 Completed [facility]ive rsity of [facility] VACCINE 00:00:00 [facility] 12 YRS+, BIVALENT Branch 0.3ML, IM, (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) SARS-COV-2 COVID-19 2022-07-27 Completed [facility]ive rsity of [facility]CR[facility] VACCINE 00:00:00 [facility] 12 YRS+, BIVALENT Branch 0.3ML, IM, (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) SARS-COV-2 COVID-19 2022-07-27 Completed [facility]ive rsity of [facility]-SUCR[facility] VACCINE 00:00:00 [facility] 12 YRS+, BIVALENT Branch 0.3ML, IM, (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) SARS-COV-2 COVID-19 2022-07-27 Completed [facility]ive rsity of [facility] VACCINE 00:00:00 [facility] 12 YRS+, BIVALENT Branch 0.3ML, IM, (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) SARS-COV-2 COVID-19 2022-07-27 Completed [facility]ive rsity of [facility] VACCINE 00:00:00 [facility] 12 YRS+, BIVALENT Branch 0.3ML, IM, (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) SARS-COV-2 COVID-19 2022-07-27 Completed [facility]ive rsity of [facility]CR[facility] VACCINE 00:00:00 [facility] 12 YRS+, BIVALENT Branch 0.3ML, IM, (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) SARS-COV-2 COVID-19 2022-07-27 Completed [facility]ive rsity of [facility] VACCINE 00:00:00 [facility] 12 YRS+, BIVALENT Branch 0.3ML, IM, (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) SARS-COV-2 COVID-19 2022-07-27 Completed [facility]ive rsity of [facility] VACCINE 00:00:00 [facility] 12 YRS+, BIVALENT Branch 0.3ML, IM, (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) SARS-COV-2 COVID-19 2022-07-27 Completed [facility]ive rsity of [facility] VACCINE 00:00:00 [facility] 12 YRS+, BIVALENT Branch 0.3ML, IM, (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) SARS-COV-2 COVID-19 2022-07-27 Completed [facility]ive rsity of [facility] VACCINE 00:00:00 [facility] 12 YRS+, BIVALENT Branch 0.3ML, IM, (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) SARS-COV-2 COVID-19 2022-07-27 Completed [facility]ive rsity of [facility]CR[facility] VACCINE 00:00:00 [facility] 12 YRS+, BIVALENT Branch 0.3ML, IM, (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) SARS-COV-2 COVID-19 2022-07-27 Completed [facility]ive rsity of [facility] VACCINE 00:00:00 [facility] 12 YRS+, BIVALENT Branch 0.3ML, IM, (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) SARS-COV-2 COVID-19 2022-07-27 Completed [facility]ive rsity of [facility]EL[facility]-SUCR[facility] VACCINE 00:00:00 [facility] 12 YRS+, BIVALENT Branch 0.3ML, IM, (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) SARS-COV-2 COVID-19 2022-07-27 Completed [facility]ive rsity of [facility]EL[facility]-SUCROSE VACCINE 00:00:00 [facility] 12 YRS+, BIVALENT Branch 0.3ML, IM, (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) SARS-COV-2 COVID-19 2022-07-27 Completed [facility] rsity of [facility] VACCINE 00:00:00 [facility] 12 YRS+, BIVALENT Branch 0.3ML, IM, (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) SARS-COV-2 COVID-19 2022-07-27 Completed [facility]ive rsity of [facility]EL[facility]-SUCR[facility] VACCINE 00:00:00 [facility] 12 YRS+, BIVALENT Branch 0.3ML, IM, (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) SARS-COV-2 COVID-19 2022-07-27 Completed [facility]ive rsity of [facility]EL[facility]-SUCR[facility] VACCINE 00:00:00 [facility] 12 YRS+, BIVALENT Branch 0.3ML, IM, (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) SARS-COV-2 COVID-19 2022-07-27 Completed [facility]ive rsity of [facility]-SUCR[facility] VACCINE 00:00:00 [facility] 12 YRS+, BIVALENT Branch 0.3ML, IM, (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) SARS-COV-2 COVID-19 2022-07-27 Completed Unive rsity of [facility]-SUCR[facility] VACCINE 00:00:00 [facility] 12 YRS+, BIVALENT Branch 0.3ML, IM, (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) SARS-COV-2 COVID-19 2022-07-27 Completed Unive rsity of [facility]-SUCR[facility] VACCINE 00:00:00 [facility] 12 YRS+, BIVALENT Branch 0.3ML, IM, (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) SARS-COV-2 COVID-19 2022-07-27 Completed Unive rsity of [facility]ELLE-SUCROSE VACCINE 00:00:00 [facility] 12 YRS+, BIVALENT Branch 0.3ML, IM, (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) SARS-COV-2 COVID-19 2022-07-27 Completed Unive rsity of [facility]ELLE-SUCROSE VACCINE 00:00:00 [facility] 12 YRS+, BIVALENT Branch 0.3ML, IM, (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) SARS-COV-2 COVID-19 2022-07-27 Completed Unive rsity of [facility]EL[facility]-SUCROSE VACCINE 00:00:00 [facility] 12 YRS+, BIVALENT Branch 0.3ML, IM, (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) SARS-COV-2 COVID-19 2022-07-27 Completed Unive rsity of [facility]STELLE-SUCROSE VACCINE 00:00:00 [facility] 12 YRS+, BIVALENT Branch 0.3ML, IM, (PFIZER [...] of Vaccine Quad .5 mL IM 00:00:00 [facility] 6[facility] MO [facility] Influenza Virus [...] b) 2022-02-24 Completed Uni versity of 00:00:00 [facility] Twinrix (hep a/hep b) 2022-02-24 Completed Uni versity of 00:00:00 [facility] Twinrix (hep a/hep b) 2022-02-24 Completed Uni versity of 00:00:00 [facility] Twinrix (hep a/hep b) 2022-02-24 Completed Uni versity of 00:00:00 [facility] Twinrix (hep a/hep b) 2022-02-24 Completed Uni versity of 00:00:00 [facility] Twinrix (hep a/hep b) 2022-02-24 Completed Uni versity of 00:00:00 [facility] Twinrix (hep a/hep b) 2022-02-24 Completed Uni versity of 00:00:00 [facility] Twinrix (hep a/hep b) 2022-02-24 Completed Uni versity of 00:00:00 [facility] Twinrix (hep a/hep b) 2022-02-24 Completed Uni versity of 00:00:00 [facility] Twinrix (hep a/hep b) 2022-02-24 Completed Uni versity of 00:00:00 [facility] Twinrix (hep a/hep b) 2022-02-24 Completed Uni versity of 00:00:00 [facility] Twinrix (hep a/hep b) 2022-02-24 Completed Uni versity of 00:00:00 [facility] Twinrix (hep a/hep b) 2022-02-24 Completed Uni versity of 00:00:00 [facility] Twinrix (hep a/hep b) 2022-02-24 Completed Uni versity of 00:00:00 [facility] (hep a/hep b) 2022-02-24 Completed Uni versity of 00:00:00 [facility] Twinrix (hep a/hep b) 2022-02-24 Completed Uni versity of 00:00:00 [facility] Twinrix (hep a/hep b) 2022-02-24 Completed Uni versity of 00:00:00 [facility] Twinrix (hep a/hep b) 2022-02-24 Completed Uni versity of 00:00:00 [facility] Twinrix (hep a/hep b) 2022-02-24 Completed Uni versity of 00:00:00 [facility] Twinrix (hep a/hep b) 2022-02-24 Completed Uni versity of 00:00:00 [facility] Twinrix (hep a/hep b) 2022-02-24 Completed Uni versity of 00:00:00 [facility] Twinrix (hep a/hep b) 2022-02-24 Completed Uni versity of 00:00:00 [facility] Twinrix (hep a/hep b) 2022-02-24 Completed Uni versity of 00:00:00 [facility] Twinrix (hep a/hep b) 2022-02-24 Completed Uni versity of 00:00:00 [facility] Twinrix (hep a/hep b) 2022-02-24 Completed Uni versity of 00:00:00 [facility] Twinrix (hep a/hep b) 2022-02-24 Completed Uni versity of 00:00:00 [facility] Twinrix (hep a/hep b) 2022-02-24 Completed Uni versity of 00:00:00 [facility] Twinrix (hep a/hep b) 2022-02-24 [...] b) 2022-02-24 Completed Uni versity of 00:00:00 [facility] Twinrix (hep a/hep b) 2022-02-24 Completed Uni versity of 00:00:00 [facility] Twin[facility] (hep a/hep b) 2022-02-24 Completed Uni versity of 00:00:00 [facility] Twinrix (hep a/hep b) 2022-02-24 Completed Uni versity of 00:00:00 [facility] Twinrix (hep a/hep b) 2022-02-24 Completed Uni versity of 00:00:00 [facility] Twinrix (hep a/hep b) 2022-02-24 Completed Uni versity of 00:00:00 [facility] Twinrix (hep a/hep b) 2022-02-24 Completed Uni versity of 00:00:00 [facility] Twinrix (hep a/hep b) 2022-02-24 [...] b) 2022-02-24 Completed Uni versity of 00:00:00 [facility] Twinrix (hep a/hep b) 2022-02-24 Completed Uni versity of 00:00:00 [facility] Twinrix (hep a/hep b) 2022-02-24 Completed Uni versity of 00:00:00 [facility] Twin[facility] (hep a/hep b) 2022-02-24 Completed Uni versity of 00:00:00 [facility] Twin[facility] (hep a/hep b) 2022-02-24 Completed Uni versity of 00:00:00 [facility] (hep a/hep b) 2022-02-24 Completed Uni versity of 00:00:00 [facility] Twin[facility] (hep a/hep b) 2022-02-24 Completed Uni versity of 00:00:00 [facility] (hep a/hep b) 2022-02-24 Completed Uni versity of 00:00:00 [facility] Twinrix (hep a/hep b) 2022-02-24 Completed Uni versity of 00:00:00 [facility] Twinrix (hep a/hep b) 2022-02-24 Completed Uni versity of 00:00:00 [facility] Twinrix (hep a/hep b) 2022-02-24 Completed Uni versity of 00:00:00 [facility] Twinrix (hep a/hep b) 2022-02-24 Completed Uni versity of 00:00:00 [facility] Twinrix (hep a/hep b) 2022-02-24 Completed Uni versity of 00:00:00 [facility] Twinrix (hep a/hep b) 2022-02-24 Completed Uni versity of 00:00:00 [facility] Twinrix (hep a/hep b) 2022-02-24 Completed Uni versity of 00:00:00 [facility] Twinrix (hep a/hep b) 2022-02-24 Completed Uni versity of 00:00:00 [facility] Twinrix (hep a/hep b) 2022-02-24 Completed Uni versity of 00:00:00 [facility] Twinrix (hep a/hep b) 2022-02-24 Completed Uni versity of 00:00:00 [facility] Twinrix (hep a/hep b) 2022-02-24 Completed Uni versity of 00:00:00 [facility] Twinrix (hep a/hep b) 2022-02-24 [...] b) 2022-02-24 Completed Uni versity of 00:00:00 [facility] Twinrix (hep a/hep b) 2022-02-24 Completed Uni versity of 00:00:00 [facility] (hep a/hep b) 2022-02-24 Completed Uni versity of 00:00:00 [facility] Twinrix (hep a/hep b) 2022-02-24 Completed Uni versity of 00:00:00 [facility] Twinrix (hep a/hep b) 2022-02-24 Completed Uni versity of 00:00:00 [facility] Twinrix (hep a/hep b) 2022-02-24 Completed Uni versity of 00:00:00 [facility] Twinrix (hep a/hep b) 2022-02-24 Completed Uni versity of 00:00:00 [facility] Twinrix (hep a/hep b) 2022-02-24 Completed Uni versity of 00:00:00 [facility] Twinrix (hep a/hep b) 2022-02-24 Completed Uni versity of 00:00:00 [facility] Twinrix (hep a/hep b) 2022-02-24 Completed Uni versity of 00:00:00 [facility] Twin[facility] (hep a/hep b) 2022-02-24 Completed Uni versity of 00:00:00 [facility] Twin[facility] (hep a/hep b) 2022-02-24 Completed Uni versity of 00:00:00 [facility] Twin[facility] (hep a/hep b) 2022-02-24 Completed Uni versity of 00:00:00 [facility] Twin[facility] (hep a/hep b) 2022-02-24 Completed Uni versity of 00:00:00 [facility] Twinrix (hep a/hep b) 2022-02-24 Completed Uni versity of 00:00:00 [facility] Twin[facility] (hep a/hep b) 2022-02-24 Completed Uni versity of 00:00:00 [facility] Twin[facility] (hep a/hep b) 2022-02-24 Completed Uni versity of 00:00:00 [facility] Twin[facility] (hep a/hep b) 2022-02-24 Completed Uni versity of 00:00:00 [facility] Twin[facility] (hep a/hep b) 2022-02-24 Completed Uni versity of 00:00:00 [facility] Twin[facility] (hep a/hep b) 2022-02-24 Completed Uni versity of 00:00:00 [facility] Twin[facility] (hep a/hep b) 2022-02-24 Completed Uni versity of 00:00:00 [facility] Twinrix (hep a/hep b) 2022-02-24 Completed Uni versity of 00:00:00 [facility] Twinrix (hep a/hep b) 2022-02-24 Completed Uni versity of 00:00:00 [facility] Twinrix (hep a/hep b) 2022-02-24 Completed Uni versity of 00:00:00 [facility] Twinrix (hep a/hep b) 2022-02-24 Completed Uni versity of 00:00:00 [facility] Twinrix (hep a/hep b) 2022-02-24 Completed Uni versity of 00:00:00 [facility] Twinrix (hep a/hep b) 2022-01-14 Completed Uni versity of 00:00:00 [facility] Twin[facility] (hep a/hep b) 2022-01-14 Completed Uni versity of 00:00:00 [facility] Twin[facility] (hep a/hep b) 2022-01-14 Completed Uni versity of 00:00:00 [facility] Twinrix (hep a/hep b) 2022-01-14 Completed Uni versity of 00:00:00 [facility] Twinrix (hep a/hep b) 2022-01-14 [...] b) 2022-01-14 Completed Uni versity of 00:00:00 [facility] Twinrix (hep a/hep b) 2022-01-14 Completed Uni versity of 00:00:00 [facility] Twin[facility] (hep a/hep b) 2022-01-14 Completed Uni versity of 00:00:00 [facility] Twinrix (hep a/hep b) 2022-01-14 Completed Uni versity of 00:00:00 [facility] Twinrix (hep a/hep b) 2022-01-14 Completed Uni versity of 00:00:00 [facility] Twinrix (hep a/hep b) 2022-01-14 Completed Uni versity of 00:00:00 [facility] Twinrix (hep a/hep b) 2022-01-14 Completed Uni versity of 00:00:00 [facility] Twinrix (hep a/hep b) 2022-01-14 [...] b) 2022-01-14 Completed Uni versity of 00:00:00 [facility] Twin[facility] (hep a/hep b) 2022-01-14 [...] b) 2022-01-14 Completed Uni versity of 00:00:00 [facility] Twinrix (hep a/hep b) 2022-01-14 Completed Uni versity of 00:00:00 [facility] Twinrix (hep a/hep b) 2022-01-14 Completed Uni versity of 00:00:00 [facility] Twinrix (hep a/hep b) 2022-01-14 Completed Uni versity of 00:00:00 [facility] Twinrix (hep a/hep b) 2022-01-14 Completed Uni versity of 00:00:00 [facility] Twinrix (hep a/hep b) 2022-01-14 Completed Uni versity of 00:00:00 [facility] Twinrix (hep a/hep b) 2022-01-14 Completed Uni versity of 00:00:00 [facility] Twinrix (hep a/hep b) [...] b) 2022-01-14 Completed Uni versity of 00:00:00 [facility] Twinrix (hep a/hep b) 2022-01-14 [...] b) 2022-01-14 Completed Uni versity of 00:00:00 [facility] Twin[facility] (hep a/hep b) 2022-01-14 Completed Uni versity of 00:00:00 [facility] Twinrix (hep a/hep b) 2022-01-14 Completed Uni versity of 00:00:00 [facility] Twinrix (hep a/hep b) 2022-01-14 Completed Uni versity of 00:00:00 [facility] Twinrix (hep a/hep b) 2022-01-14 Completed Uni versity of 00:00:00 [facility] Twin[facility] (hep a/hep b) 2022-01-14 Completed Uni versity of 00:00:00 [facility] Twinrix (hep a/hep b) 2022-01-14 Completed Uni versity of 00:00:00 [facility] Twinrix (hep a/hep b) 2022-01-14 Completed Uni versity of 00:00:00 [facility] (hep a/hep b) 2022-01-14 Completed Uni versity of 00:00:00 [facility] (hep a/hep b) 2022-01-14 Completed Uni versity of 00:00:00 [facility] (hep a/hep b) 2022-01-14 Completed Uni versity of 00:00:00 [facility] Twin[facility] (hep a/hep b) 2022-01-14 Completed Uni versity of 00:00:00 [facility] Twin[facility] (hep a/hep b) 2022-01-14 Completed Uni versity of 00:00:00 [facility] Twin[facility] (hep a/hep b) 2022-01-14 Completed Uni versity of 00:00:00 [facility] (hep a/hep b) 2022-01-14 Completed Uni versity of 00:00:00 [facility] (hep a/hep b) 2022-01-14 Completed Uni versity of 00:00:00 [facility] (hep a/hep b) 2022-01-14 Completed Uni versity of 00:00:00 [facility] (hep a/hep b) 2022-01-14 Completed Uni versity of 00:00:00 [facility] (hep a/hep b) 2022-01-14 Completed Uni versity of 00:00:00 [facility] Twinrix (hep a/hep b) 2022-01-14 Completed Uni versity of 00:00:00 [facility] Twinrix (hep a/hep b) 2022-01-14 Completed Uni versity of 00:00:00 [facility] Twinrix (hep a/hep b) 2022-01-14 Completed Uni versity of 00:00:00 [facility] Twinrix (hep a/hep b) 2022-01-14 Completed Uni versity of 00:00:00 [facility] Twinrix (hep a/hep b) 2022-01-14 Completed Uni versity of 00:00:00 [facility] Twinrix (hep a/hep b) 2022-01-14 Completed Uni versity of 00:00:00 [facility] Twinrix (hep a/hep b) 2022-01-14 Completed Uni versity of 00:00:00 [facility] Twin[facility] (hep a/hep b) 2022-01-14 Completed Uni versity of 00:00:00 [facility] (hep a/hep b) 2022-01-14 Completed Uni versity of 00:00:00 [facility] Twinrix (hep a/hep b) 2022-01-14 Completed Uni versity of 00:00:00 [facility] Twinrix (hep a/hep b) 2022-01-14 [...] b) 2022-01-14 Completed Uni versity of 00:00:00 [facility] (hep a/hep b) 2022-01-14 Completed Uni versity of 00:00:00 [facility] (hep a/hep b) 2022-01-14 Completed Uni versity of 00:00:00 [facility] Twinrix (hep a/hep b) 2022-01-14 Completed Uni versity of 00:00:00 [facility] Twinrix (hep a/hep b) 2022-01-14 Completed Uni versity of 00:00:00 [facility] (hep a/hep b) 2022-01-14 Completed Uni versity of 00:00:00 [facility] Twinrix (hep a/hep b) 2022-01-14 Completed Uni versity of 00:00:00 [facility] Twin[facility] (hep a/hep b) 2022-01-14 [...] b) 2022-01-14 Completed Uni versity of 00:00:00 [facility] (hep a/hep b) 2022-01-14 Completed Uni versity of 00:00:00 [facility] (hep a/hep b) 2022-01-14 Completed Uni versity of 00:00:00 [facility] SARS-COV-2 COVID-19 2021-07-23 Completed Unive rsity of PFIZER VACCINE 00:00:00 [facility] SARS-COV-2 COVID-19 2021-07-23 Completed Unive rsity of PFIZER VACCINE 00:00:00 [facility] SARS-COV-2 COVID-19 2021-07-23 Completed Unive rsity of PFIZER VACCINE 00:00:00 [facility] SARS-COV-2 COVID-19 2021-07-23 Completed Unive rsity of PFIZER VACCINE 00:00:00 [facility] SARS-COV-2 COVID-19 2021-07-23 Completed Unive rsity of PFIZER VACCINE 00:00:00 [facility] SARS-COV-2 COVID-19 2021-07-23 Completed Unive rsity of PFIZER VACCINE 00:00:00 [facility] SARS-COV-2 COVID-19 2021-07-23 Completed Unive rsity of PFIZER VACCINE 00:00:00 [facility] SARS-COV-2 COVID-19 2021-07-23 Completed Unive rsity of PFIZER VACCINE 00:00:00 [facility] SARS-COV-2 COVID-19 2021-07-23 Completed Unive rsity of PFIZER VACCINE 00:00:00 [facility] SARS-COV-2 COVID-19 2021-07-23 Completed Unive rsity of PFIZER VACCINE 00:00:00 [facility] SARS-COV-2 COVID-19 2021-07-23 Completed Unive rsity of PFIZER VACCINE 00:00:00 [facility] SARS-COV-2 COVID-19 2021-07-23 Completed Unive rsity of PFIZER VACCINE 00:00:00 [facility] SARS-COV-2 COVID-19 2021-07-23 Completed Unive rsity of PFIZER VACCINE 00:00:00 [facility] SARS-COV-2 COVID-19 2021-07-23 Completed Unive rsity of PFIZER VACCINE 00:00:00 [facility] SARS-COV-2 COVID-19 2021-07-23 Completed Unive rsity of PFIZER VACCINE 00:00:00 [facility] SARS-COV-2 COVID-19 2021-07-23 Completed Unive rsity of PFIZER VACCINE 00:00:00 [facility] SARS-COV-2 COVID-19 2021-07-23 Completed Unive rsity of PFIZER VACCINE 00:00:00 [facility] SARS-COV-2 COVID-19 2021-07-23 Completed Unive rsity of PFIZER VACCINE 00:00:00 [facility] SARS-COV-2 COVID-19 2021-07-23 Completed Unive rsity of PFIZER VACCINE 00:00:00 [facility] SARS-COV-2 COVID-19 2021-07-23 Completed [facility] PFIZER VACCINE 00:00:00 [facility] SARS-COV-2 COVID-19 2021-07-23 Completed [facility] PFIZER VACCINE 00:00:00 [facility] SARS-COV-2 COVID-19 2021-07-23 Completed [facility] PFIZER VACCINE 00:00:00 [facility] SARS-COV-2 COVID-19 2021-07-23 Completed [facility] PFIZER VACCINE 00:00:00 [facility] SARS-COV-2 COVID-19 2021-07-23 Completed [facility]00 [facility] [place] SARS-COV-2 COVID-19 2021-07-23 Completed [facility] PFIZER VACCINE 00:00:00 [facility] SARS-COV-2 COVID-19 2021-07-23 Completed [facility] PFIZER VACCINE 00:00:00 [facility] SARS-COV-2 COVID-19 2021-07-23 Completed [facility] PFIZER VACCINE 00:00:00 [facility] SARS-COV-2 COVID-19 2021-07-23 Completed [facility] PFIZER VACCINE 00:00:00 [facility] SARS-COV-2 COVID-19 2021-07-23 Completed [facility] PFIZER VACCINE 00:00:00 [facility] SARS-COV-2 COVID-19 2021-07-23 Completed [facility] PFIZER VACCINE 00:00:00 [facility] SARS-COV-2 COVID-19 2021-07-23 Completed [facility] PFIZER VACCINE 00:00:00 [facility] SARS-COV-2 COVID-19 2021-07-23 Completed [facility] PFIZER VACCINE 00:00:00 [facility] SARS-COV-2 COVID-19 2021-07-23 Completed [facility] PFIZER VACCINE 00:00:00 [facility] SARS-COV-2 COVID-19 2021-07-23 Completed [facility] PFIZER VACCINE 00:00:00 [facility] SARS-COV-2 COVID-19 2021-07-23 Completed [facility] PFIZER VACCINE 00:00:00 [facility] SARS-COV-2 COVID-19 2021-07-23 Completed [facility] PFIZER VACCINE 00:00:00 [facility] SARS-COV-2 COVID-19 2021-07-23 Completed [facility] PFIZER VACCINE 00:00:00 [facility] SARS-COV-2 COVID-19 2021-07-23 Completed [facility] PFIZER VACCINE 00:00:00 [facility] SARS-COV-2 COVID-19 2021-07-23 Completed [facility] PFIZER VACCINE 00:00:00 [facility] SARS-COV-2 COVID-19 2021-07-23 Completed [facility] PFIZER VACCINE 00:00:00 [facility] SARS-COV-2 COVID-19 2021-07-23 Completed [facility] PFIZER VACCINE 00:00:00 [facility] SARS-COV-2 COVID-19 2021-07-23 Completed [facility] PFIZER VACCINE 00:00:00 [facility] SARS-COV-2 COVID-19 2021-07-23 Completed [facility] PFIZER VACCINE 00:00:00 [facility] SARS-COV-2 COVID-19 2021-07-23 Completed [facility] PFIZER VACCINE 00:00:00 [facility] SARS-COV-2 COVID-19 2021-07-23 Completed [facility] PFIZER VACCINE 00:00:00 [facility] SARS-COV-2 COVID-19 2021-07-23 Completed [facility] PFIZER VACCINE 00:00:00 [facility] SARS-COV-2 COVID-19 2021-07-23 Completed [facility] PFIZER VACCINE 00:00:00 [facility] SARS-COV-2 COVID-19 2021-07-23 Completed [facility] PFIZER VACCINE 00:00:00 [facility] SARS-COV-2 COVID-19 2021-07-23 Completed [facility] PFIZER VACCINE 00:00:00 [facility] SARS-COV-2 COVID-19 2021-07-23 Completed [facility] PFIZER VACCINE 00:00:00 [facility] SARS-COV-2 COVID-19 2021-07-23 Completed [facility] PFIZER VACCINE 00:00:00 [facility] SARS-COV-2 COVID-19 2021-07-23 Completed [facility] PFIZER VACCINE 00:00:00 [facility] SARS-COV-2 COVID-19 2021-07-23 Completed [facility] PFIZER VACCINE 00:00:00 [facility] SARS-COV-2 COVID-19 2021-07-23 Completed [facility] PFIZER VACCINE 00:00:00 [facility] SARS-COV-2 COVID-19 2021-07-23 Completed [facility] PFIZER VACCINE 00:00:00 [facility] SARS-COV-2 COVID-19 2021-07-23 Completed [facility] PFIZER VACCINE 00:00:00 [facility] SARS-COV-2 COVID-19 2021-07-23 Completed [facility] PFIZER VACCINE 00:00:00 [facility] SARS-COV-2 COVID-19 2021-07-23 Completed [facility] PFIZER VACCINE 00:00:00 [facility] SARS-COV-2 COVID-19 2021-07-23 Completed [facility] PFIZER VACCINE 00:00:00 [facility] SARS-COV-2 COVID-19 2021-07-23 Completed [facility] PFIZER VACCINE 00:00:00 [facility] SARS-COV-2 COVID-19 2021-07-23 Completed [facility] PFIZER VACCINE 00:00:00 [facility] SARS-COV-2 COVID-19 2021-07-23 Completed [facility] PFIZER VACCINE 00:00:00 [facility] SARS-COV-2 COVID-19 2021-07-23 Completed [facility] PFIZER VACCINE 00:00:00 [facility] SARS-COV-2 COVID-19 2021-07-23 Completed [facility] PFIZER VACCINE 00:00:00 [facility] SARS-COV-2 COVID-19 2021-07-23 Completed [facility] PFIZER VACCINE 00:00:00 [facility] SARS-COV-2 COVID-19 2021-07-23 Completed [facility] PFIZER VACCINE 00:00:00 [facility] SARS-COV-2 COVID-19 2021-07-23 Completed [facility] PFIZER VACCINE 00:00:00 [facility] SARS-COV-2 COVID-19 2021-07-23 Completed [facility] PFIZER VACCINE 00:00:00 [facility] SARS-COV-2 COVID-19 2021-07-23 Completed [facility] PFIZER VACCINE 00:00:00 [facility] SARS-COV-2 COVID-19 2021-07-23 Completed [facility] PFIZER VACCINE 00:00:00 [facility] SARS-COV-2 COVID-19 2021-07-23 Completed [facility] PFIZER VACCINE 00:00:00 [facility] SARS-COV-2 COVID-19 2021-07-23 Completed [facility] PFIZER VACCINE 00:00:00 [facility] SARS-COV-2 COVID-19 2021-07-23 Completed [facility] PFIZER VACCINE 00:00:00 [facility] SARS-COV-2 COVID-19 2021-07-23 Completed [facility] PFIZER VACCINE 00:00:00 [facility] SARS-COV-2 COVID-19 2021-07-23 Completed [facility] PFIZER VACCINE 00:00:00 [facility] SARS-COV-2 COVID-19 2021-07-23 Completed [facility] PFIZER VACCINE 00:00:00 [facility] SARS-COV-2 COVID-19 2021-07-23 Completed [facility] PFIZER VACCINE 00:00:00 [facility] SARS-COV-2 COVID-19 2021-07-23 Completed [facility] PFIZER VACCINE 00:00:00 [facility] SARS-COV-2 COVID-19 2021-07-23 Completed [facility] PFIZER VACCINE 00:00:00 [facility] SARS-COV-2 COVID-19 2021-07-23 Completed [facility] PFIZER VACCINE 00:00:00 [facility] SARS-COV-2 COVID-19 2021-07-23 Completed [facility] PFIZER VACCINE 00:00:00 [facility] SARS-COV-2 COVID-19 2021-07-23 Completed [facility] PFIZER VACCINE 00:00:00 [facility] SARS-COV-2 COVID-19 2021-07-23 Completed [facility] PFIZER VACCINE 00:00:00 [facility] SARS-COV-2 COVID-19 2021-07-23 Completed [facility] PFIZER VACCINE 00:00:00 [facility] SARS-COV-2 COVID-19 2021-07-23 Completed [facility] PFIZER VACCINE 00:00:00 [facility] SARS-COV-2 COVID-19 2021-07-23 Completed [facility] PFIZER VACCINE 00:00:00 [facility] SARS-COV-2 COVID-19 2021-07-23 Completed [facility] PFIZER VACCINE 00:00:00 [facility] SARS-COV-2 COVID-19 2021-07-23 Completed [facility] PFIZER VACCINE 00:00:00 [facility] SARS-COV-2 COVID-19 2021-07-23 Completed [facility] PFIZER VACCINE 00:00:00 [facility] SARS-COV-2 COVID-19 2021-07-23 Completed [facility] PFIZER VACCINE 00:00:00 [facility] SARS-COV-2 COVID-19 2021-07-23 Completed [facility] PFIZER VACCINE 00:00:00 [facility] SARS-COV-2 COVID-19 2021-07-23 Completed [facility] PFIZER VACCINE 00:00:00 [facility] Influenza Virus 2021-05-27 Completed [facility] Vaccine (3+ yrs) 00:00:00 [facility] Influenza Virus 2021-05-27 Completed [facility] Vaccine (3+ yrs) 00:00:00 [facility] Influenza Virus 2021-05-27 Completed [facility] Vaccine (3+ yrs) 00:00:00 [facility] Influenza Virus 2021-05-27 Completed [facility] Vaccine (3+ yrs) 00:00:00 [facility] Influenza Virus 2021-05-27 Completed [facility] Vaccine (3+ yrs) 00:00:00 [facility] Influenza Virus 2021-05-27 Completed [facility] Vaccine (3+ yrs) 00:00:00 [facility] Influenza Virus 2021-05-27 Completed [facility] Vaccine (3+ yrs) 00:00:00 [facility] Influenza Virus 2021-05-27 Completed [facility] Vaccine (3+ yrs) 00:00:00 [facility] Influenza Virus 2021-05-27 Completed [facility] Vaccine (3+ yrs) 00:00:00 [facility] Influenza Virus 2021-05-27 Completed [facility] Vaccine (3+ yrs) 00:00:00 [facility] Influenza Virus 2021-05-27 Completed [facility] Vaccine (3+ yrs) 00:00:00 [facility] Influenza Virus 2021-05-27 Completed [facility] Vaccine (3+ yrs) 00:00:00 [facility] Influenza Virus 2021-05-27 Completed [facility] Vaccine (3+ yrs) 00:00:00 [facility] Influenza Virus 2021-05-27 Completed [facility] Vaccine (3+ yrs) 00:00:00 [facility] Influenza Virus 2021-05-27 Completed [facility] Vaccine (3+ yrs) 00:00:00 [facility] Influenza Virus 2021-05-27 Completed [facility] Vaccine (3+ yrs) 00:00:00 [facility] Influenza Virus 2021-05-27 Completed [facility] Vaccine (3+ yrs) 00:00:00 [facility] Influenza Virus 2021-05-27 Completed [facility] Vaccine (3+ yrs) 00:00:00 [facility] Influenza Virus 2021-05-27 Completed [facility] Vaccine (3+ yrs) 00:00:00 [facility] Influenza Virus 2021-05-27 Completed [facility] Vaccine (3+ yrs) 00:00:00 [facility] Influenza Virus 2021-05-27 Completed [facility] Vaccine (3+ yrs) 00:00:00 [facility] Influenza Virus 2021-05-27 Completed [facility] Vaccine (3+ yrs) 00:00:00 [facility] Influenza Virus 2021-05-27 Completed [facility] Vaccine (3+ yrs) 00:00:00 [facility] Influenza Virus 2021-05-27 Completed [facility] Vaccine (3+ yrs) 00:00:00 [facility] Influenza Virus 2021-05-27 Completed [facility] Vaccine (3+ yrs) 00:00:00 [facility] Influenza Virus 2021-05-27 Completed [facility] Vaccine (3+ yrs) 00:00:00 [facility] Influenza Virus 2021-05-27 Completed [facility] Vaccine (3+ yrs) 00:00:00 [facility] Influenza Virus 2021-05-27 Completed [facility] Vaccine (3+ yrs) 00:00:00 [facility] Influenza Virus 2021-05-27 Completed [facility] Vaccine (3+ yrs) 00:00:00 [facility] Influenza Virus 2021-05-27 Completed [facility] Vaccine (3+ yrs) 00:00:00 [facility] Influenza Virus 2021-05-27 Completed [facility] Vaccine (3+ yrs) 00:00:00 [facility] Influenza Virus 2021-05-27 Completed [facility] Vaccine (3+ yrs) 00:00:00 [facility] Influenza Virus 2021-05-27 Completed [facility] Vaccine (3+ yrs) 00:00:00 [facility] Influenza Virus 2021-05-27 Completed [facility] Vaccine (3+ yrs) 00:00:00 [facility] Influenza Virus 2021-05-27 Completed [facility] Vaccine (3+ yrs) 00:00:00 [facility] Influenza Virus 2021-05-27 Completed [facility] Vaccine (3+ yrs) 00:00:00 [facility] Influenza Virus 2021-05-27 Completed [facility] Vaccine (3+ yrs) 00:00:00 [facility] Influenza Virus 2021-05-27 Completed [facility] Vaccine (3+ yrs) 00:00:00 [facility] Influenza Virus 2021-05-27 Completed [facility] Vaccine (3+ yrs) 00:00:00 [facility] Influenza Virus 2021-05-27 Completed [facility] Vaccine (3+ yrs) 00:00:00 [facility] Influenza Virus 2021-05-27 Completed [facility] Vaccine (3+ yrs) 00:00:00 [facility] Influenza Virus 2021-05-27 Completed [facility] Vaccine (3+ yrs) 00:00:00 [facility] Influenza Virus 2021-05-27 Completed [facility] Vaccine (3+ yrs) 00:00:00 [facility] Influenza Virus 2021-05-27 Completed [facility] Vaccine (3+ yrs) 00:00:00 [facility] Influenza Virus 2021-05-27 Completed [facility] Vaccine (3+ yrs) 00:00:00 [facility] Influenza Virus 2021-05-27 Completed [facility] Vaccine (3+ yrs) 00:00:00 [facility] Influenza Virus 2021-05-27 Completed [facility] Vaccine (3+ yrs) 00:00:00 [facility] Influenza Virus 2021-05-27 Completed [facility] Vaccine (3+ yrs) 00:00:00 [facility] Influenza Virus 2021-05-27 Completed [facility] Vaccine (3+ yrs) 00:00:00 [facility] Influenza Virus 2021-05-27 Completed [facility] Vaccine (3+ yrs) 00:00:00 [facility] Influenza Virus 2021-05-27 Completed [facility] Vaccine (3+ yrs) 00:00:00 [facility] Influenza Virus 2021-05-27 Completed [facility] Vaccine (3+ yrs) 00:00:00 [facility] Influenza Virus 2021-05-27 Completed [facility] Vaccine (3+ yrs) 00:00:00 [facility] Influenza Virus 2021-05-27 Completed [facility] Vaccine (3+ yrs) 00:00:00 [facility] Influenza Virus 2021-05-27 Completed [facility] Vaccine (3+ yrs) 00:00:00 [facility] Influenza Virus 2021-05-27 Completed [facility] Vaccine (3+ yrs) 00:00:00 [facility] Influenza Virus 2021-05-27 Completed [facility] Vaccine (3+ yrs) 00:00:00 [facility] Influenza Virus 2021-05-27 Completed [facility] Vaccine (3+ yrs) 00:00:00 [facility] Influenza Virus 2021-05-27 Completed [facility] Vaccine (3+ yrs) 00:00:00 [facility] Influenza Virus 2021-05-27 Completed [facility] Vaccine (3+ yrs) 00:00:00 [facility] Influenza Virus 2021-05-27 Completed [facility] Vaccine (3+ yrs) 00:00:00 [facility] Influenza Virus 2021-05-27 Completed [facility] Vaccine (3+ yrs) 00:00:00 [facility] Influenza Virus 2021-05-27 Completed [facility] Vaccine (3+ yrs) 00:00:00 [facility] Influenza Virus 2021-05-27 Completed [facility] Vaccine (3+ yrs) 00:00:00 [facility] Influenza Virus 2021-05-27 Completed [facility] Vaccine (3+ yrs) 00:00:00 [facility] Influenza Virus 2021-05-27 Completed [facility] Vaccine (3+ yrs) 00:00:00 [facility] Influenza Virus 2021-05-27 Completed [facility] Vaccine (3+ yrs) 00:00:00 [facility] Influenza Virus 2021-05-27 Completed [facility] Vaccine (3+ yrs) 00:00:00 [facility] Influenza Virus 2021-05-27 Completed [facility] Vaccine (3+ yrs) 00:00:00 [facility] Influenza Virus 2021-05-27 Completed [facility] Vaccine (3+ yrs) 00:00:00 [facility] Influenza Virus 2021-05-27 Completed [facility] Vaccine (3+ yrs) 00:00:00 [facility] Influenza Virus 2021-05-27 Completed [facility] Vaccine (3+ yrs) 00:00:00 [facility] Influenza Virus 2021-05-27 Completed [facility] Vaccine (3+ yrs) 00:00:00 [facility] Influenza Virus 2021-05-27 Completed [facility] Vaccine (3+ yrs) 00:00:00 [facility] Influenza Virus 2021-05-27 Completed [facility] Vaccine (3+ yrs) 00:00:00 [facility] Influenza Virus 2021-05-27 Completed [facility] Vaccine (3+ yrs) 00:00:00 [facility] Influenza Virus 2021-05-27 Completed [facility] Vaccine (3+ yrs) 00:00:00 [facility] Influenza Virus 2021-05-27 Completed [facility] Vaccine (3+ yrs) 00:00:00 [facility] Influenza Virus 2021-05-27 Completed [facility] Vaccine (3+ yrs) 00:00:00 [facility] Influenza Virus 2021-05-27 Completed [facility] Vaccine (3+ yrs) 00:00:00 [facility] Influenza Virus 2021-05-27 Completed [facility] Vaccine (3+ yrs) 00:00:00 [facility] Influenza Virus 2021-05-27 Completed [facility] Vaccine (3+ yrs) 00:00:00 [facility] Influenza Virus 2021-05-27 Completed [facility] Vaccine (3+ yrs) 00:00:00 [facility] Influenza Virus 2021-05-27 Completed [facility] Vaccine (3+ yrs) 00:00:00 [facility] Influenza Virus 2021-05-27 Completed [facility] Vaccine (3+ yrs) 00:00:00 [facility] Influenza Virus 2021-05-27 Completed [facility] Vaccine (3+ yrs) 00:00:00 [facility] Influenza Virus 2021-05-27 Completed [facility] Vaccine (3+ yrs) 00:00:00 [facility] Influenza Virus 2021-05-27 Completed [facility] Vaccine (3+ yrs) 00:00:00 [facility] Influenza Virus 2021-05-27 Completed [facility] Vaccine (3+ yrs) 00:00:00 [facility] Influenza Virus 2021-05-27 Completed [facility] Vaccine (3+ yrs) 00:00:00 [facility] Influenza Virus 2021-05-27 Completed [facility] Vaccine (3+ yrs) 00:00:00 [facility] Influenza Virus 2021-05-27 Completed [facility] Vaccine (3+ yrs) 00:00:00 [facility] SARS-COV-2 COVID-19 2020-12-13 Completed [facility] PFIZER VACCINE 00:00:00 [facility] SARS-COV-2 COVID-19 2020-12-13 Completed [facility] PFIZER VACCINE 00:00:00 [facility] SARS-COV-2 COVID-19 2020-12-13 Completed [facility] PFIZER VACCINE 00:00:00 [facility] SARS-COV-2 COVID-19 2020-12-13 Completed [facility] PFIZER VACCINE 00:00:00 [facility] SARS-COV-2 COVID-19 2020-12-13 Completed [facility] PFIZER VACCINE 00:00:00 [facility] SARS-COV-2 COVID-19 2020-12-13 Completed [facility] PFIZER VACCINE 00:00:00 [facility] SARS-COV-2 COVID-19 2020-12-13 Completed [facility] PFIZER VACCINE 00:00:00 [facility] SARS-COV-2 COVID-19 2020-12-13 Completed [facility] PFIZER VACCINE 00:00:00 [facility] SARS-COV-2 COVID-19 2020-12-13 Completed [facility] PFIZER VACCINE 00:00:00 [facility] SARS-COV-2 COVID-19 2020-12-13 Completed [facility] PFIZER VACCINE 00:00:00 [facility] SARS-COV-2 COVID-19 2020-12-13 Completed [facility] PFIZER VACCINE 00:00:00 [facility] SARS-COV-2 COVID-19 2020-12-13 Completed [facility] PFIZER VACCINE 00:00:00 [facility] SARS-COV-2 COVID-19 2020-12-13 Completed [facility] PFIZER VACCINE 00:00:00 [facility] SARS-COV-2 COVID-19 2020-12-13 Completed [facility] PFIZER VACCINE 00:00:00 [facility] SARS-COV-2 COVID-19 2020-12-13 Completed [facility] PFIZER VACCINE 00:00:00 [facility] SARS-COV-2 COVID-19 2020-12-13 Completed [facility] PFIZER VACCINE 00:00:00 [facility] SARS-COV-2 COVID-19 2020-12-13 Completed [facility] PFIZER VACCINE 00:00:00 [facility] SARS-COV-2 COVID-19 2020-12-13 Completed [facility] PFIZER VACCINE 00:00:00 [facility] SARS-COV-2 COVID-19 2020-12-13 Completed [facility] PFIZER VACCINE 00:00:00 [facility] SARS-COV-2 COVID-19 2020-12-13 Completed [facility] PFIZER VACCINE 00:00:00 [facility] SARS-COV-2 COVID-19 2020-12-13 Completed [facility] PFIZER VACCINE 00:00:00 [facility] SARS-COV-2 COVID-19 2020-12-13 Completed [facility] PFIZER VACCINE 00:00:00 [facility] SARS-COV-2 COVID-19 2020-12-13 Completed [facility] PFIZER VACCINE 00:00:00 [facility] SARS-COV-2 COVID-19 2020-12-13 Completed [facility] PFIZER VACCINE 00:00:00 [facility] SARS-COV-2 COVID-19 2020-12-13 Completed [facility] PFIZER VACCINE 00:00:00 [facility] SARS-COV-2 COVID-19 2020-12-13 Completed [facility] PFIZER VACCINE 00:00:00 [facility] SARS-COV-2 COVID-19 2020-12-13 Completed [facility] PFIZER VACCINE 00:00:00 [facility] SARS-COV-2 COVID-19 2020-12-13 Completed [facility] PFIZER VACCINE 00:00:00 [facility] SARS-COV-2 COVID-19 2020-12-13 Completed [facility] PFIZER VACCINE 00:00:00 [facility] SARS-COV-2 COVID-19 2020-12-13 Completed [facility] PFIZER VACCINE 00:00:00 [facility] SARS-COV-2 COVID-19 2020-12-13 Completed [facility] PFIZER VACCINE 00:00:00 [facility] SARS-COV-2 COVID-19 2020-12-13 Completed [facility] PFIZER VACCINE 00:00:00 [facility] SARS-COV-2 COVID-19 2020-12-13 Completed [facility] PFIZER VACCINE 00:00:00 [facility] SARS-COV-2 COVID-19 2020-12-13 Completed [facility] PFIZER VACCINE 00:00:00 [facility] SARS-COV-2 COVID-19 2020-12-13 Completed [facility] PFIZER VACCINE 00:00:00 [facility] SARS-COV-2 COVID-19 2020-12-13 Completed [facility] PFIZER VACCINE 00:00:00 [facility] SARS-COV-2 COVID-19 2020-12-13 Completed [facility] PFIZER VACCINE 00:00:00 [facility] SARS-COV-2 COVID-19 2020-12-13 Completed [facility] PFIZER VACCINE 00:00:00 [facility] SARS-COV-2 COVID-19 2020-12-13 Completed [facility] PFIZER VACCINE 00:00:00 [facility] SARS-COV-2 COVID-19 2020-12-13 Completed [facility] PFIZER VACCINE 00:00:00 [facility] SARS-COV-2 COVID-19 2020-12-13 Completed [facility] PFIZER VACCINE 00:00:00 [facility] SARS-COV-2 COVID-19 2020-12-13 Completed [facility] PFIZER VACCINE 00:00:00 [facility] SARS-COV-2 COVID-19 2020-12-13 Completed [facility] PFIZER VACCINE 00:00:00 [facility] SARS-COV-2 COVID-19 2020-12-13 Completed [facility] PFIZER VACCINE 00:00:00 [facility] SARS-COV-2 COVID-19 2020-12-13 Completed [facility] PFIZER VACCINE 00:00:00 [facility] SARS-COV-2 COVID-19 2020-12-13 Completed [facility] PFIZER VACCINE 00:00:00 [facility] SARS-COV-2 COVID-19 2020-12-13 Completed [facility] PFIZER VACCINE 00:00:00 [facility] SARS-COV-2 COVID-19 2020-12-13 Completed [facility] PFIZER VACCINE 00:00:00 [facility] SARS-COV-2 COVID-19 2020-12-13 Completed [facility] PFIZER VACCINE 00:00:00 [facility] SARS-COV-2 COVID-19 2020-12-13 Completed [facility] PFIZER VACCINE 00:00:00 [facility] SARS-COV-2 COVID-19 2020-12-13 Completed [facility] PFIZER VACCINE 00:00:00 [facility] SARS-COV-2 COVID-19 2020-12-13 Completed [facility] PFIZER VACCINE 00:00:00 [facility] SARS-COV-2 COVID-19 2020-12-13 Completed [facility] PFIZER VACCINE 00:00:00 [facility] SARS-COV-2 COVID-19 2020-12-13 Completed [facility] PFIZER VACCINE 00:00:00 [facility] SARS-COV-2 COVID-19 2020-12-13 Completed [facility] PFIZER VACCINE 00:00:00 [facility] SARS-COV-2 COVID-19 2020-12-13 Completed [facility] PFIZER VACCINE 00:00:00 [facility] SARS-COV-2 COVID-19 2020-12-13 Completed [facility] PFIZER VACCINE 00:00:00 [facility] SARS-COV-2 COVID-19 2020-12-13 Completed [facility] PFIZER VACCINE 00:00:00 [facility] SARS-COV-2 COVID-19 2020-12-13 Completed [facility] PFIZER VACCINE 00:00:00 [facility] SARS-COV-2 COVID-19 2020-12-13 Completed [facility] PFIZER VACCINE 00:00:00 [facility] SARS-COV-2 COVID-19 2020-12-13 Completed [facility] PFIZER VACCINE 00:00:00 [facility] SARS-COV-2 COVID-19 2020-12-13 Completed [facility] PFIZER VACCINE 00:00:00 [facility] SARS-COV-2 COVID-19 2020-12-13 Completed [facility] PFIZER VACCINE 00:00:00 [facility] SARS-COV-2 COVID-19 2020-12-13 Completed [facility] PFIZER VACCINE 00:00:00 [facility] SARS-COV-2 COVID-19 2020-12-13 Completed [facility] PFIZER VACCINE 00:00:00 [facility] SARS-COV-2 COVID-19 2020-12-13 Completed [facility] PFIZER VACCINE 00:00:00 [facility] SARS-COV-2 COVID-19 2020-12-13 Completed [facility] PFIZER VACCINE 00:00:00 [facility] SARS-COV-2 COVID-19 2020-12-13 Completed [facility] PFIZER VACCINE 00:00:00 [facility] SARS-COV-2 COVID-19 2020-12-13 Completed [facility] PFIZER VACCINE 00:00:00 [facility] SARS-COV-2 COVID-19 2020-12-13 Completed [facility] PFIZER VACCINE 00:00:00 [facility] SARS-COV-2 COVID-19 2020-12-13 Completed [facility] PFIZER VACCINE 00:00:00 [facility] SARS-COV-2 COVID-19 2020-12-13 Completed [facility] PFIZER VACCINE 00:00:00 [facility] SARS-COV-2 COVID-19 2020-12-13 Completed [facility] PFIZER VACCINE 00:00:00 [facility] SARS-COV-2 COVID-19 2020-12-13 Completed [facility] PFIZER VACCINE 00:00:00 [facility] SARS-COV-2 COVID-19 2020-12-13 Completed [facility] PFIZER VACCINE 00:00:00 [facility] SARS-COV-2 COVID-19 2020-12-13 Completed [facility] PFIZER VACCINE 00:00:00 [facility] SARS-COV-2 COVID-19 2020-12-13 Completed [facility] PFIZER VACCINE 00:00:00 [facility] SARS-COV-2 COVID-19 2020-12-13 Completed [facility] PFIZER VACCINE 00:00:00 [facility] SARS-COV-2 COVID-19 2020-12-13 Completed [facility] PFIZER VACCINE 00:00:00 [facility] SARS-COV-2 COVID-19 2020-12-13 Completed [facility] PFIZER VACCINE 00:00:00 [facility] SARS-COV-2 COVID-19 2020-12-13 Completed [facility] PFIZER VACCINE 00:00:00 [facility] SARS-COV-2 COVID-19 2020-12-13 Completed [facility] PFIZER VACCINE 00:00:00 [facility] SARS-COV-2 COVID-19 2020-12-13 Completed [facility] PFIZER VACCINE 00:00:00 [facility] SARS-COV-2 COVID-19 2020-12-13 Completed [facility] PFIZER VACCINE 00:00:00 [facility] SARS-COV-2 COVID-19 2020-12-13 Completed [facility] PFIZER VACCINE 00:00:00 [facility] SARS-COV-2 COVID-19 2020-12-13 Completed [facility] PFIZER VACCINE 00:00:00 [facility] SARS-COV-2 COVID-19 2020-12-13 Completed [facility] PFIZER VACCINE 00:00:00 [facility] SARS-COV-2 COVID-19 2020-12-13 Completed [facility] PFIZER VACCINE 00:00:00 [facility] SARS-COV-2 COVID-19 2020-12-13 Completed [facility] PFIZER VACCINE 00:00:00 [facility] SARS-COV-2 COVID-19 2020-12-13 Completed [facility] PFIZER VACCINE 00:00:00 [facility] SARS-COV-2 COVID-19 2020-12-13 Completed [facility] PFIZER VACCINE 00:00:00 [facility] SARS-COV-2 COVID-19 2020-12-13 Completed [facility] PFIZER VACCINE 00:00:00 [facility] SARS-COV-2 COVID-19 2020-11-22 Completed [facility] PFIZER VACCINE 00:00:00 [facility] SARS-COV-2 COVID-19 2020-11-22 Completed [facility] PFIZER VACCINE 00:00:00 [facility] SARS-COV-2 COVID-19 2020-11-22 Completed [facility] PFIZER VACCINE 00:00:00 [facility] SARS-COV-2 COVID-19 2020-11-22 Completed [facility] PFIZER VACCINE 00:00:00 [facility] SARS-COV-2 COVID-19 2020-11-22 Completed [facility] PFIZER VACCINE 00:00:00 [facility] SARS-COV-2 COVID-19 2020-11-22 Completed [facility] PFIZER VACCINE 00:00:00 [facility] SARS-COV-2 COVID-19 2020-11-22 Completed [facility] PFIZER VACCINE 00:00:00 [facility] SARS-COV-2 COVID-19 2020-11-22 Completed [facility] PFIZER VACCINE 00:00:00 [facility] SARS-COV-2 COVID-19 2020-11-22 Completed [facility] PFIZER VACCINE 00:00:00 [facility] SARS-COV-2 COVID-19 2020-11-22 Completed [facility] PFIZER VACCINE 00:00:00 [facility] SARS-COV-2 COVID-19 2020-11-22 Completed [facility] PFIZER VACCINE 00:00:00 [facility] SARS-COV-2 COVID-19 2020-11-22 Completed [facility] PFIZER VACCINE 00:00:00 [facility] SARS-COV-2 COVID-19 2020-11-22 Completed [facility] PFIZER VACCINE 00:00:00 [facility] SARS-COV-2 COVID-19 2020-11-22 Completed [facility] PFIZER VACCINE 00:00:00 [facility] SARS-COV-2 COVID-19 2020-11-22 Completed [facility] PFIZER VACCINE 00:00:00 [facility] SARS-COV-2 COVID-19 2020-11-22 Completed [facility] PFIZER VACCINE 00:00:00 [facility] SARS-COV-2 COVID-19 2020-11-22 Completed [facility] PFIZER VACCINE 00:00:00 [facility] SARS-COV-2 COVID-19 2020-11-22 Completed [facility] PFIZER VACCINE 00:00:00 [facility] SARS-COV-2 COVID-19 2020-11-22 Completed [facility] PFIZER VACCINE 00:00:00 [facility] SARS-COV-2 COVID-19 2020-11-22 Completed [facility] PFIZER VACCINE 00:00:00 [facility] SARS-COV-2 COVID-19 2020-11-22 Completed [facility] PFIZER VACCINE 00:00:00 [facility] SARS-COV-2 COVID-19 2020-11-22 Completed [facility] PFIZER VACCINE 00:00:00 [facility] SARS-COV-2 COVID-19 2020-11-22 Completed [facility] PFIZER VACCINE 00:00:00 [facility] SARS-COV-2 COVID-19 2020-11-22 Completed [facility] PFIZER VACCINE 00:00:00 [facility] SARS-COV-2 COVID-19 2020-11-22 Completed [facility] PFIZER VACCINE 00:00:00 [facility] SARS-COV-2 COVID-19 2020-11-22 Completed [facility] PFIZER VACCINE 00:00:00 [facility] SARS-COV-2 COVID-19 2020-11-22 Completed [facility] PFIZER VACCINE 00:00:00 [facility] SARS-COV-2 COVID-19 2020-11-22 Completed [facility] PFIZER VACCINE 00:00:00 [facility] SARS-COV-2 COVID-19 2020-11-22 Completed [facility] PFIZER VACCINE 00:00:00 [facility] SARS-COV-2 COVID-19 2020-11-22 Completed [facility] PFIZER VACCINE 00:00:00 [facility] SARS-COV-2 COVID-19 2020-11-22 Completed [facility] PFIZER VACCINE 00:00:00 [facility] SARS-COV-2 COVID-19 2020-11-22 Completed [facility] PFIZER VACCINE 00:00:00 [facility] SARS-COV-2 COVID-19 2020-11-22 Completed [facility] PFIZER VACCINE 00:00:00 [facility] SARS-COV-2 COVID-19 2020-11-22 Completed [facility] PFIZER VACCINE 00:00:00 [facility] SARS-COV-2 COVID-19 2020-11-22 Completed [facility] PFIZER VACCINE 00:00:00 [facility] SARS-COV-2 COVID-19 2020-11-22 Completed [facility] PFIZER VACCINE 00:00:00 [facility] SARS-COV-2 COVID-19 2020-11-22 Completed [facility] PFIZER VACCINE 00:00:00 [facility] SARS-COV-2 COVID-19 2020-11-22 Completed [facility] PFIZER VACCINE 00:00:00 [facility] SARS-COV-2 COVID-19 2020-11-22 Completed [facility] PFIZER VACCINE 00:00:00 [facility] SARS-COV-2 COVID-19 2020-11-22 Completed [facility] PFIZER VACCINE 00:00:00 [facility] SARS-COV-2 COVID-19 2020-11-22 Completed [facility] PFIZER VACCINE 00:00:00 [facility] SARS-COV-2 COVID-19 2020-11-22 Completed [facility] PFIZER VACCINE 00:00:00 [facility] SARS-COV-2 COVID-19 2020-11-22 Completed [facility] PFIZER VACCINE 00:00:00 [facility] SARS-COV-2 COVID-19 2020-11-22 Completed [facility] PFIZER VACCINE 00:00:00 [facility] SARS-COV-2 COVID-19 2020-11-22 Completed [facility] PFIZER VACCINE 00:00:00 [facility] SARS-COV-2 COVID-19 2020-11-22 Completed [facility] PFIZER VACCINE 00:00:00 [facility] SARS-COV-2 COVID-19 2020-11-22 Completed [facility] PFIZER VACCINE 00:00:00 [facility] SARS-COV-2 COVID-19 2020-11-22 Completed [facility] PFIZER VACCINE 00:00:00 [facility] SARS-COV-2 COVID-19 2020-11-22 Completed [facility] PFIZER VACCINE 00:00:00 [facility] SARS-COV-2 COVID-19 2020-11-22 Completed [facility] PFIZER VACCINE 00:00:00 [facility] SARS-COV-2 COVID-19 2020-11-22 Completed [facility] PFIZER VACCINE 00:00:00 [facility] SARS-COV-2 COVID-19 2020-11-22 Completed [facility] PFIZER VACCINE 00:00:00 [facility] SARS-COV-2 COVID-19 2020-11-22 Completed [facility] PFIZER VACCINE 00:00:00 [facility] SARS-COV-2 COVID-19 2020-11-22 Completed [facility] PFIZER VACCINE 00:00:00 [facility] SARS-COV-2 COVID-19 2020-11-22 Completed [facility] PFIZER VACCINE 00:00:00 [facility] SARS-COV-2 COVID-19 2020-11-22 Completed [facility] PFIZER VACCINE 00:00:00 [facility] SARS-COV-2 COVID-19 2020-11-22 Completed [facility] PFIZER VACCINE 00:00:00 [facility] SARS-COV-2 COVID-19 2020-11-22 Completed [facility] PFIZER VACCINE 00:00:00 [facility] SARS-COV-2 COVID-19 2020-11-22 Completed [facility] PFIZER VACCINE 00:00:00 [facility] SARS-COV-2 COVID-19 2020-11-22 Completed [facility] PFIZER VACCINE 00:00:00 [facility] SARS-COV-2 COVID-19 2020-11-22 Completed [facility] PFIZER VACCINE 00:00:00 [facility] SARS-COV-2 COVID-19 2020-11-22 Completed [facility] PFIZER VACCINE 00:00:00 [facility] SARS-COV-2 COVID-19 2020-11-22 Completed [facility] PFIZER VACCINE 00:00:00 [facility] SARS-COV-2 COVID-19 2020-11-22 Completed [facility] PFIZER VACCINE 00:00:00 [facility] SARS-COV-2 COVID-19 2020-11-22 Completed [facility] PFIZER VACCINE 00:00:00 [facility] SARS-COV-2 COVID-19 2020-11-22 Completed [facility] PFIZER VACCINE 00:00:00 [facility] SARS-COV-2 COVID-19 2020-11-22 Completed [facility] PFIZER VACCINE 00:00:00 [facility] SARS-COV-2 COVID-19 2020-11-22 Completed [facility] PFIZER VACCINE 00:00:00 [facility] SARS-COV-2 COVID-19 2020-11-22 Completed [facility] PFIZER VACCINE 00:00:00 [facility] SARS-COV-2 COVID-19 2020-11-22 Completed [facility] PFIZER VACCINE 00:00:00 [facility] SARS-COV-2 COVID-19 2020-11-22 Completed [facility] PFIZER VACCINE 00:00:00 [facility] SARS-COV-2 COVID-19 2020-11-22 Completed [facility] PFIZER VACCINE 00:00:00 [facility] SARS-COV-2 COVID-19 2020-11-22 Completed [facility] PFIZER VACCINE 00:00:00 [facility] SARS-COV-2 COVID-19 2020-11-22 Completed [facility] PFIZER VACCINE 00:00:00 [facility] SARS-COV-2 COVID-19 2020-11-22 Completed [facility] PFIZER VACCINE 00:00:00 [facility] SARS-COV-2 COVID-19 2020-11-22 Completed [facility] PFIZER VACCINE 00:00:00 [facility] SARS-COV-2 COVID-19 2020-11-22 Completed [facility] PFIZER VACCINE 00:00:00 [facility] SARS-COV-2 COVID-19 2020-11-22 Completed [facility] PFIZER VACCINE 00:00:00 [facility] SARS-COV-2 COVID-19 2020-11-22 Completed [facility] PFIZER VACCINE 00:00:00 [facility] SARS-COV-2 COVID-19 2020-11-22 Completed [facility] PFIZER VACCINE 00:00:00 [facility] SARS-COV-2 COVID-19 2020-11-22 Completed [facility] PFIZER VACCINE 00:00:00 [facility] SARS-COV-2 COVID-19 2020-11-22 Completed [facility] PFIZER VACCINE 00:00:00 [facility] SARS-COV-2 COVID-19 2020-11-22 Completed [facility] PFIZER VACCINE 00:00:00 [facility] SARS-COV-2 COVID-19 2020-11-22 Completed [facility] PFIZER VACCINE 00:00:00 [facility] SARS-COV-2 COVID-19 2020-11-22 Completed [facility] PFIZER VACCINE 00:00:00 [facility] SARS-COV-2 COVID-19 2020-11-22 Completed [facility] PFIZER VACCINE 00:00:00 [facility] SARS-COV-2 COVID-19 2020-11-22 Completed [facility] PFIZER VACCINE 00:00:00 [facility] SARS-COV-2 COVID-19 2020-11-22 Completed [facility] PFIZER VACCINE 00:00:00 [facility] SARS-COV-2 COVID-19 2020-11-22 Completed [facility] PFIZER VACCINE 00:00:00 [facility] SARS-COV-2 COVID-19 2020-11-22 Completed [facility] PFIZER VACCINE 00:00:00 [facility] SARS-COV-2 COVID-19 2020-11-22 Completed [facility] PFIZER VACCINE 00:00:00 [facility] SARS-COV-2 COVID-19 2020-11-22 Completed [facility] PFIZER VACCINE 00:00:00 [facility] Influenza Virus 2020-05-27 Completed [facility] [...] 2019-08-10 Completed [facility] o f Polysaccharide, 00:00:00 [facility] PPSV23 (PNEUMOVAX) Branch TDAP (ADACEL) VACCINE 2019-08-10 Completed [facility] 00:00:00 [facility] TDAP 2019-08-10 Completed University of 00:00:00 [facility] Pneumococcal 2019-08-10 Completed [facility] Polysaccharide, 00:00:00 [facility] PPSV23 (PNEUMOVAX) [facility] TDAP (ADACEL) VACCINE 2019-08-10 Completed [facility] 00:00:00 [facility] TDAP 2019-08-10 Completed [facility] 00:00:00 [facility] Pneumococcal 2019-08-10 Completed [facility] f Polysaccharide, 00:00:00 [place] [facility] PPSV23 (PNEUMOVAX) [facility] TDAP (ADACEL) VACCINE 2019-08-10 Completed [facility] 00:00:00 [facility] TDAP 2019-08-10 Completed [facility] 00:00:00 [facility] Pneumococcal 2019-08-10 Completed [facility] o f Polysaccharide, 00:00:00 [facility] PPSV23 (PNEUMOVAX) [facility] TDAP (ADACEL) VACCINE 2019-08-10 Completed [facility] 00:00:00 [facility] TDAP 2019-08-10 Completed [facility] of 00:00:00 [facility] Pneumococcal 2019-08-10 Completed [facility] o f Polysaccharide, 00:00:00 [facility] PPSV23 (PNEUMOVAX) [facility] TDAP (ADACEL) VACCINE 2019-08-10 Completed [facility] 00:00:00 [facility] TDAP 2019-08-10 Completed [facility] of 00:00:00 [facility] Pneumococcal 2019-08-10 Completed [facility] o f Polysaccharide, 00:00:00 [facility] PPSV23 (PNEUMOVAX) [facility] TDAP (ADACEL) VACCINE 2019-08-10 Completed [facility] 00:00:00 [facility] TDAP 2019-08-10 Completed [facility] 00:00:00 [facility] Pneumococcal 2019-08-10 Completed [facility] o f Polysaccharide, 00:00:00 [facility] PPSV23 (PNEUMOVAX) [facility] TDAP (ADACEL) VACCINE 2019-08-10 Completed [facility] 00:00:00 [facility] TDAP 2019-08-10 Completed [facility] 00:00:00 [facility] Pneumococcal 2019-08-10 Completed [facility] f Polysaccharide, 00:00:00 [facility] PPSV23 (PNEUMOVAX) [facility] TDAP (ADACEL) VACCINE 2019-08-10 Completed [facility] 00:00:00 [facility] TDAP 2019-08-10 Completed [facility] of 00:00:00 [facility] Pneumococcal 2019-08-10 Completed [facility] o f Polysaccharide, 00:00:00 [facility] PPSV23 (PNEUMOVAX) [facility] TDAP (ADACEL) VACCINE 2019-08-10 Completed [facility] 00:00:00 [facility] TDAP 2019-08-10 Completed [facility] of 00:00:00 [facility] Pneumococcal 2019-08-10 Completed [facility] o f Polysaccharide, 00:00:00 [facility] PPSV23 (PNEUMOVAX) Branch TDAP (ADACEL) VACCINE 2019-08-10 Completed [facility] 00:00:00 [facility] TDAP 2019-08-10 Completed [facility] of 00:00:00 [facility] Pneumococcal 2019-08-10 Completed [facility] o f Polysaccharide, 00:00:00 [facility] PPSV23 (PNEUMOVAX) Branch TDAP (ADACEL) VACCINE 2019-08-10 Completed [facility] 00:00:00 [facility] TDAP 2019-08-10 Completed [facility] of 00:00:00 [facility] Pneumococcal 2019-08-10 Completed [facility] o f Polysaccharide, 00:00:00 [facility] PPSV23 (PNEUMOVAX) [facility] TDAP (ADACEL) VACCINE 2019-08-10 Completed [facility] 00:00:00 [facility] TDAP 2019-08-10 Completed [facility] of 00:00:00 [facility] Pneumococcal 2019-08-10 Completed [facility] o f Polysaccharide, 00:00:00 [facility] PPSV23 (PNEUMOVAX) Branch TDAP (ADACEL) VACCINE 2019-08-10 Completed [facility] 00:00:00 [facility] TDAP 2019-08-10 Completed [facility] of 00:00:00 [facility] Pneumococcal 2019-08-10 Completed [facility] o f Polysaccharide, 00:00:00 [facility] PPSV23 (PNEUMOVAX) [facility] TDAP (ADACEL) VACCINE 2019-08-10 Completed [facility] 00:00:00 [facility] TDAP 2019-08-10 Completed [facility] 00:00:00 [facility] Pneumococcal 2019-08-10 Completed [facility] o f Polysaccharide, 00:00:00 [facility] PPSV23 (PNEUMOVAX) Branch TDAP (ADACEL) VACCINE 2019-08-10 Completed [facility] 00:00:00 [facility] TDAP 2019-08-10 Completed [facility] of 00:00:00 [facility] Pneumococcal 2019-08-10 Completed [facility] o f Polysaccharide, 00:00:00 [facility] PPSV23 (PNEUMOVAX) Branch TDAP (ADACEL) VACCINE 2019-08-10 Completed [facility] 00:00:00 [facility] TDAP 2019-08-10 Completed [facility] 00:00:00 [facility] Pneumococcal 2019-08-10 Completed [facility] o f Polysaccharide, 00:00:00 [facility] PPSV23 (PNEUMOVAX) Branch TDAP (ADACEL) VACCINE 2019-08-10 Completed [facility] 00:00:00 [facility] TDAP 2019-08-10 Completed [facility] of 00:00:00 [facility] Pneumococcal 2019-08-10 Completed [facility] o f Polysaccharide, 00:00:00 [facility] PPSV23 (PNEUMOVAX) Branch TDAP (ADACEL) VACCINE 2019-08-10 Completed [facility] 00:00:00 [facility] TDAP 2019-08-10 Completed [facility] 00:00:00 [facility] Pneumococcal 2019-08-10 Completed [facility] o f Polysaccharide, 00:00:00 [facility] PPSV23 (PNEUMOVAX) Branch TDAP (ADACEL) VACCINE 2019-08-10 Completed [facility] 00:00:00 [facility] TDAP 2019-08-10 Completed [facility] of 00:00:00 [facility] Pneumococcal 2019-08-10 Completed [facility] o f Polysaccharide, 00:00:00 [place] [facility] PPSV23 (PNEUMOVAX) Branch TDAP (ADACEL) VACCINE 2019-08-10 Completed [facility] 00:00:00 [facility] TDAP 2019-08-10 Completed [facility] of 00:00:00 [facility] Pneumococcal 2019-08-10 Completed [facility] o f Polysaccharide, 00:00:00 [facility] PPSV23 (PNEUMOVAX) Branch TDAP (ADACEL) VACCINE 2019-08-10 Completed [facility] 00:00:00 [facility] TDAP 2019-08-10 Completed [facility] 00:00:00 [facility] Pneumococcal 2019-08-10 Completed [facility] o f Polysaccharide, 00:00:00 [place] [facility] PPSV23 (PNEUMOVAX) Branch TDAP (ADACEL) VACCINE 2019-08-10 Completed [facility] 00:00:00 [facility] TDAP 2019-08-10 Completed [facility] 00:00:00 [facility] Pneumococcal 2019-08-10 Completed [facility] o f Polysaccharide, 00:00:00 [facility] PPSV23 (PNEUMOVAX) Branch TDAP (ADACEL) VACCINE 2019-08-10 Completed [facility] 00:00:00 [facility] TDAP 2019-08-10 Completed [facility] 00:00:00 [facility] Pneumococcal 2019-08-10 Completed [facility] o f Polysaccharide, 00:00:00 [place] [facility] PPSV23 (PNEUMOVAX) Branch TDAP (ADACEL) VACCINE 2019-08-10 Completed [facility] 00:00:00 [facility] TDAP 2019-08-10 Completed [facility] 00:00:00 [facility] Pneumococcal 2019-08-10 Completed [facility] o f Polysaccharide, 00:00:00 [place] [facility] PPSV23 (PNEUMOVAX) Branch TDAP (ADACEL) VACCINE 2019-08-10 Completed [facility] 00:00:00 [facility] TDAP 2019-08-10 Completed [facility] 00:00:00 [facility] Pneumococcal 2019-08-10 Completed [facility] o f Polysaccharide, 00:00:00 [place] [facility] PPSV23 (PNEUMOVAX) Branch TDAP (ADACEL) VACCINE 2019-08-10 Completed [facility] 00:00:00 [facility] TDAP 2019-08-10 Completed [facility] 00:00:00 [facility] Pneumococcal 2019-08-10 Completed [facility] o f Polysaccharide, 00:00:00 [place] [facility] PPSV23 (PNEUMOVAX) Branch TDAP (ADACEL) VACCINE 2019-08-10 Completed Uni versity of 00:00:00 [facility] TDAP 2019-08-10 Completed [facility] 00:00:00 [facility] Pneumococcal 2019-08-10 Completed [facility] o f Polysaccharide, 00:00:00 [place] [facility] PPSV23 (PNEUMOVAX) Branch TDAP (ADACEL) VACCINE 2019-08-10 Completed [facility] versity of 00:00:00 [facility] TDAP 2019-08-10 Completed [facility] 00:00:00 [facility] Pneumococcal 2019-08-10 Completed [facility] o f Polysaccharide, 00:00:00 [place] [facility] PPSV23 (PNEUMOVAX) Branch TDAP (ADACEL) VACCINE 2019-08-10 Completed [facility] vers[facility] of 00:00:00 [facility] TDAP 2019-08-10 Completed [facility] 00:00:00 [facility] Pneumococcal 2019-08-10 Completed [facility] o f Polysaccharide, 00:00:00 [place] [facility] PPSV23 (PNEUMOVAX) Branch TDAP (ADACEL) VACCINE 2019-08-10 Completed [facility] versity of 00:00:00 [facility] TDAP 2019-08-10 Completed [facility] 00:00:00 [facility] Pneumococcal 2019-08-10 Completed [facility] o f Polysaccharide, 00:00:00 [place] [facility] PPSV23 (PNEUMOVAX) Branch TDAP (ADACEL) VACCINE 2019-08-10 Completed Uni versity of 00:00:00 [facility] TDAP 2019-08-10 Completed [facility] of 00:00:00 [facility] Pneumococcal 2019-08-10 Completed [facility] o f Polysaccharide, 00:00:00 [place] [facility] PPSV23 (PNEUMOVAX) Branch TDAP (ADACEL) VACCINE 2019-08-10 Completed Uni versity of 00:00:00 [facility] TDAP 2019-08-10 Completed [facility] 00:00:00 [facility] Pneumococcal 2019-08-10 Completed [facility] o f Polysaccharide, 00:00:00 [facility] ical PPSV23 (PNEUMOVAX) Branch TDAP (ADACEL) VACCINE 2019-08-10 Completed Uni versity of 00:00:00 [facility] TDAP 2019-08-10 Completed [facility] of 00:00:00 [facility] Pneumococcal 2019-08-10 Completed [facility] o f Polysaccharide, 00:00:00 [place] [facility] PPSV23 (PNEUMOVAX) Branch TDAP (ADACEL) VACCINE 2019-08-10 Completed Uni versity of 00:00:00 [facility] TDAP 2019-08-10 Completed [facility] 00:00:00 [facility] Pneumococcal 2019-08-10 Completed [facility] o f Polysaccharide, 00:00:00 [place] [facility] PPSV23 (PNEUMOVAX) Branch TDAP (ADACEL) VACCINE 2019-08-10 Completed Uni versity of 00:00:00 [facility] TDAP 2019-08-10 Completed [facility] 00:00:00 [facility] Pneumococcal 2019-08-10 Completed [facility] o f Polysaccharide, 00:00:00 [place] [facility] PPSV23 (PNEUMOVAX) Branch TDAP (ADACEL) VACCINE 2019-08-10 Completed Uni versity of 00:00:00 [facility] TDAP 2019-08-10 Completed [facility] 00:00:00 [facility] Pneumococcal 2019-08-10 Completed [facility] o f Polysaccharide, 00:00:00 [place] [facility] PPSV23 (PNEUMOVAX) Branch TDAP (ADACEL) VACCINE 2019-08-10 Completed Uni versity of 00:00:00 [facility] TDAP 2019-08-10 Completed [facility] 00:00:00 [facility] Pneumococcal 2019-08-10 Completed [facility] o f Polysaccharide, 00:00:00 [place] [facility] PPSV23 (PNEUMOVAX) Branch TDAP (ADACEL) VACCINE 2019-08-10 Completed Uni versity of 00:00:00 [facility] TDAP 2019-08-10 Completed [facility] 00:00:00 [facility] Pneumococcal 2019-08-10 Completed [facility] o f Polysaccharide, 00:00:00 [place] [facility] PPSV23 (PNEUMOVAX) Branch TDAP (ADACEL) VACCINE 2019-08-10 Completed Uni versity of 00:00:00 [facility] TDAP 2019-08-10 Completed [facility] 00:00:00 [facility] Pneumococcal 2019-08-10 Completed [facility] o f Polysaccharide, 00:00:00 [place] [facility] PPSV23 (PNEUMOVAX) Branch TDAP (ADACEL) VACCINE 2019-08-10 Completed Uni versity of 00:00:00 [facility] TDAP 2019-08-10 Completed [facility] 00:00:00 [facility] Pneumococcal 2019-08-10 Completed [facility] o f Polysaccharide, 00:00:00 [place] [facility] PPSV23 (PNEUMOVAX) Branch TDAP (ADACEL) VACCINE 2019-08-10 Completed Uni versity of 00:00:00 [facility] TDAP 2019-08-10 Completed [facility] 00:00:00 [facility] Pneumococcal 2019-08-10 Completed [facility] o f Polysaccharide, 00:00:00 [place] [facility] PPSV23 (PNEUMOVAX) Branch TDAP (ADACEL) VACCINE 2019-08-10 Completed Uni versity of 00:00:00 [facility] TDAP 2019-08-10 Completed [facility] of 00:00:00 [facility] Pneumococcal 2019-08-10 Completed [facility] o f Polysaccharide, 00:00:00 [place] [facility] PPSV23 (PNEUMOVAX) Branch TDAP (ADACEL) VACCINE 2019-08-10 Completed Uni versity of 00:00:00 [facility] TDAP 2019-08-10 Completed [facility] of 00:00:00 [facility] Pneumococcal 2019-08-10 Completed [facility] o f Polysaccharide, 00:00:00 [place] [facility] PPSV23 (PNEUMOVAX) Branch TDAP (ADACEL) VACCINE 2019-08-10 Completed Uni versity of 00:00:00 [facility] TDAP 2019-08-10 Completed [facility] of 00:00:00 [facility] Pneumococcal 2019-08-10 Completed [facility] o f Polysaccharide, 00:00:00 [place] [facility] PPSV23 (PNEUMOVAX) Branch TDAP (ADACEL) VACCINE 2019-08-10 Completed Uni versity of 00:00:00 [facility] TDAP 2019-08-10 Completed [facility] of 00:00:00 [facility] Pneumococcal 2019-08-10 Completed [facility] o f Polysaccharide, 00:00:00 [place] [facility] PPSV23 (PNEUMOVAX) Branch TDAP (ADACEL) VACCINE 2019-08-10 Completed Uni versity of 00:00:00 [facility] TDAP 2019-08-10 Completed [facility] of 00:00:00 [facility] Pneumococcal 2019-08-10 Completed [facility] o f Polysaccharide, 00:00:00 [place] [facility] PPSV23 (PNEUMOVAX) Branch TDAP (ADACEL) VACCINE 2019-08-10 Completed Uni versity of 00:00:00 [facility] TDAP 2019-08-10 Completed [facility] of 00:00:00 [facility] Pneumococcal 2019-08-10 Completed [facility] o f Polysaccharide, 00:00:00 [place] [facility] PPSV23 (PNEUMOVAX) Branch TDAP (ADACEL) VACCINE 2019-08-10 Completed Uni versity of 00:00:00 [facility] TDAP 2019-08-10 Completed [facility] of 00:00:00 [facility] Pneumococcal 2019-08-10 Completed [facility] o f Polysaccharide, 00:00:00 [place] [facility] PPSV23 (PNEUMOVAX) Branch TDAP (ADACEL) VACCINE 2019-08-10 Completed Uni versity of 00:00:00 [facility] TDAP 2019-08-10 Completed [facility] of 00:00:00 [facility] Pneumococcal 2019-08-10 Completed [facility] o f Polysaccharide, 00:00:00 [place] [facility] PPSV23 (PNEUMOVAX) Branch TDAP (ADACEL) VACCINE 2019-08-10 Completed Uni versity of 00:00:00 [facility] TDAP 2019-08-10 Completed [facility] of 00:00:00 [facility] Pneumococcal 2019-08-10 Completed [facility] o f Polysaccharide, 00:00:00 [place] [facility] PPSV23 (PNEUMOVAX) Branch TDAP (ADACEL) VACCINE 2019-08-10 Completed Uni versity of 00:00:00 [facility] TDAP 2019-08-10 Completed [facility] of 00:00:00 [facility] Pneumococcal 2019-08-10 Completed [facility] o f Polysaccharide, 00:00:00 [place] [facility] PPSV23 (PNEUMOVAX) Branch TDAP (ADACEL) VACCINE 2019-08-10 Completed Uni versity of 00:00:00 [facility] TDAP 2019-08-10 Completed [facility] of 00:00:00 [facility] Pneumococcal 2019-08-10 Completed [facility] o f Polysaccharide, 00:00:00 [place] [facility] PPSV23 (PNEUMOVAX) Branch TDAP (ADACEL) VACCINE 2019-08-10 Completed Uni versity of 00:00:00 [facility] TDAP 2019-08-10 Completed [facility] of 00:00:00 [facility] Pneumococcal 2019-08-10 Completed [facility] o f Polysaccharide, 00:00:00 [place] [facility] PPSV23 (PNEUMOVAX) Branch TDAP (ADACEL) VACCINE 2019-08-10 Completed Uni versity of 00:00:00 [facility] TDAP 2019-08-10 Completed [facility] 00:00:00 [facility] Pneumococcal 2019-08-10 Completed [facility] o f Polysaccharide, 00:00:00 [place] [facility] PPSV23 (PNEUMOVAX) Branch TDAP (ADACEL) VACCINE 2019-08-10 Completed Uni versity of 00:00:00 [facility] TDAP 2019-08-10 Completed [facility] 00:00:00 [facility] Pneumococcal 2019-08-10 Completed [facility] o f Polysaccharide, 00:00:00 [place] [facility] PPSV23 (PNEUMOVAX) Branch TDAP (ADACEL) VACCINE 2019-08-10 Completed Uni versity of 00:00:00 [facility] TDAP 2019-08-10 Completed [facility] 00:00:00 [facility] Pneumococcal 2019-08-10 Completed [facility] o f Polysaccharide, 00:00:00 [place] [facility] PPSV23 (PNEUMOVAX) Branch TDAP (ADACEL) VACCINE 2019-08-10 Completed Uni versity of 00:00:00 [facility] TDAP 2019-08-10 Completed [facility] of 00:00:00 [facility] Pneumococcal 2019-08-10 Completed [facility] o f Polysaccharide, 00:00:00 [place] [facility] PPSV23 (PNEUMOVAX) Branch TDAP (ADACEL) VACCINE 2019-08-10 Completed Uni versity of 00:00:00 [facility] TDAP 2019-08-10 Completed [facility] 00:00:00 [facility] Pneumococcal 2019-08-10 Completed University o f Polysaccharide, 00:00:00 [place] [facility] PPSV23 (PNEUMOVAX) Branch TDAP (ADACEL) VACCINE 2019-08-10 Completed Uni versity of 00:00:00 [facility] TDAP 2019-08-10 Completed [facility] of 00:00:00 [facility] Pneumococcal 2019-08-10 Completed University o f Polysaccharide, 00:00:00 [place] [facility] PPSV23 (PNEUMOVAX) Branch TDAP (ADACEL) VACCINE 2019-08-10 Completed Uni versity of 00:00:00 [facility] TDAP 2019-08-10 Completed [facility] of 00:00:00 [facility] Pneumococcal 2019-08-10 Completed [facility] o f Polysaccharide, 00:00:00 [place] [facility] PPSV23 (PNEUMOVAX) Branch TDAP (ADACEL) VACCINE 2019-08-10 Completed Uni versity of 00:00:00 [facility] TDAP 2019-08-10 Completed [facility] of 00:00:00 [facility] Pneumococcal 2019-08-10 Completed [facility] o f Polysaccharide, 00:00:00 [place] [facility] PPSV23 (PNEUMOVAX) Branch TDAP (ADACEL) VACCINE 2019-08-10 Completed Uni versity of 00:00:00 [facility] TDAP 2019-08-10 Completed [facility] 00:00:00 [facility] Pneumococcal 2019-08-10 Completed [facility] o f Polysaccharide, 00:00:00 [place] [facility] PPSV23 (PNEUMOVAX) Branch TDAP (ADACEL) VACCINE 2019-08-10 Completed Uni versity of 00:00:00 [facility] TDAP 2019-08-10 Completed [facility] 00:00:00 [facility] Pneumococcal 2019-08-10 Completed [facility] o f Polysaccharide, 00:00:00 [place] [facility] PPSV23 (PNEUMOVAX) Branch TDAP (ADACEL) VACCINE 2019-08-10 Completed Uni versity of 00:00:00 [facility] TDAP 2019-08-10 Completed [facility] 00:00:00 [facility] Pneumococcal 2019-08-10 Completed University o f Polysaccharide, 00:00:00 [place] [facility] PPSV23 (PNEUMOVAX) Branch TDAP (ADACEL) VACCINE 2019-08-10 Completed Uni versity of 00:00:00 [facility] TDAP 2019-08-10 Completed [facility] 00:00:00 [facility] Pneumococcal 2019-08-10 Completed [facility] o f Polysaccharide, 00:00:00 [place] [facility] PPSV23 (PNEUMOVAX) Branch TDAP (ADACEL) VACCINE 2019-08-10 Completed Uni versity of 00:00:00 [facility] TDAP 2019-08-10 Completed [facility] 00:00:00 [facility] Pneumococcal 2019-08-10 Completed [facility] o f Polysaccharide, 00:00:00 [place] [facility] PPSV23 (PNEUMOVAX) Branch TDAP (ADACEL) VACCINE 2019-08-10 Completed Uni versity of 00:00:00 [facility] TDAP 2019-08-10 Completed [facility] 00:00:00 [facility] Pneumococcal 2019-08-10 Completed [facility] o f Polysaccharide, 00:00:00 [place] [facility] PPSV23 (PNEUMOVAX) Branch TDAP (ADACEL) VACCINE 2019-08-10 Completed Uni versity of 00:00:00 [facility] TDAP 2019-08-10 Completed [facility] 00:00:00 [facility] Pneumococcal 2019-08-10 Completed [facility] o f Polysaccharide, 00:00:00 [place] [facility] PPSV23 (PNEUMOVAX) Branch TDAP (ADACEL) VACCINE 2019-08-10 Completed Uni versity of 00:00:00 [facility] TDAP 2019-08-10 Completed [facility] 00:00:00 [facility] Pneumococcal 2019-08-10 Completed [facility] o f Polysaccharide, 00:00:00 [place] [facility] PPSV23 (PNEUMOVAX) Branch TDAP (ADACEL) VACCINE 2019-08-10 Completed Uni versity of 00:00:00 [facility] TDAP 2019-08-10 Completed [facility] 00:00:00 [facility] Pneumococcal 2019-08-10 Completed [facility] o f Polysaccharide, 00:00:00 [place] [facility] PPSV23 (PNEUMOVAX) Branch TDAP (ADACEL) VACCINE 2019-08-10 Completed Uni versity of 00:00:00 [facility] TDAP 2019-08-10 Completed [facility] 00:00:00 [facility] Pneumococcal 2019-08-10 Completed [facility] o f Polysaccharide, 00:00:00 [place] [facility] PPSV23 (PNEUMOVAX) Branch TDAP (ADACEL) VACCINE 2019-08-10 Completed Uni versity of 00:00:00 [facility] TDAP 2019-08-10 Completed [facility] 00:00:00 [facility] Pneumococcal 2019-08-10 Completed [facility] o f Polysaccharide, 00:00:00 [place] [facility] PPSV23 (PNEUMOVAX) Branch TDAP (ADACEL) VACCINE 2019-08-10 Completed Uni versity of 00:00:00 [facility] TDAP 2019-08-10 Completed [facility] 00:00:00 [facility] Pneumococcal 2019-08-10 Completed [facility] o f Polysaccharide, 00:00:00 [place] [facility] PPSV23 (PNEUMOVAX) Branch TDAP (ADACEL) VACCINE 2019-08-10 Completed Uni versity of 00:00:00 [facility] TDAP 2019-08-10 Completed [facility] 00:00:00 [facility] Pneumococcal 2019-08-10 Completed [facility] o f Polysaccharide, 00:00:00 [place] [facility] PPSV23 (PNEUMOVAX) Branch TDAP (ADACEL) VACCINE 2019-08-10 Completed Uni versity of 00:00:00 [facility] TDAP 2019-08-10 Completed [facility] 00:00:00 [facility] Pneumococcal 2019-08-10 Completed [facility] o f Polysaccharide, 00:00:00 [place] [facility] PPSV23 (PNEUMOVAX) Branch TDAP (ADACEL) VACCINE 2019-08-10 Completed Uni versity of 00:00:00 [facility] TDAP 2019-08-10 Completed [facility] of 00:00:00 [facility] Pneumococcal 2019-08-10 Completed [facility] o f Polysaccharide, 00:00:00 [place] [facility] PPSV23 (PNEUMOVAX) Branch TDAP (ADACEL) VACCINE 2019-08-10 Completed Uni versity of 00:00:00 [facility] TDAP 2019-08-10 Completed [facility] 00:00:00 [facility] Pneumococcal 2019-08-10 Completed [facility] o f Polysaccharide, 00:00:00 [place] [facility] PPSV23 (PNEUMOVAX) Branch TDAP (ADACEL) VACCINE 2019-08-10 Completed Uni versity of 00:00:00 [facility] TDAP 2019-08-10 Completed [facility] 00:00:00 [facility] Pneumococcal 2019-08-10 Completed [facility] o f Polysaccharide, 00:00:00 [place] [facility] PPSV23 (PNEUMOVAX) Branch TDAP (ADACEL) VACCINE 2019-08-10 Completed Uni versity of 00:00:00 [facility] TDAP 2019-08-10 Completed [facility] of 00:00:00 [facility] Pneumococcal 2019-08-10 Completed [facility] o f Polysaccharide, 00:00:00 [place] [facility] PPSV23 (PNEUMOVAX) Branch TDAP (ADACEL) VACCINE 2019-08-10 Completed Uni versity of 00:00:00 [facility] TDAP 2019-08-10 Completed [facility] of 00:00:00 [facility] Pneumococcal 2019-08-10 Completed [facility] o f Polysaccharide, 00:00:00 [place] [facility] PPSV23 (PNEUMOVAX) Branch TDAP (ADACEL) VACCINE 2019-08-10 Completed Uni versity of 00:00:00 [facility] TDAP 2019-08-10 Completed [facility] of 00:00:00 [facility] Pneumococcal 2019-08-10 Completed [facility] o f Polysaccharide, 00:00:00 [place] [facility] PPSV23 (PNEUMOVAX) Branch TDAP (ADACEL) VACCINE 2019-08-10 Completed Uni versity of 00:00:00 [facility] TDAP 2019-08-10 Completed [facility] of 00:00:00 [facility] Pneumococcal 2019-08-10 Completed [facility] o f Polysaccharide, 00:00:00 [place] [facility] PPSV23 (PNEUMOVAX) Branch TDAP (ADACEL) VACCINE 2019-08-10 Completed Uni versity of 00:00:00 [facility] TDAP 2019-08-10 Completed [facility] 00:00:00 [facility] Pneumococcal 2019-08-10 Completed [facility] o f Polysaccharide, 00:00:00 [place] [facility] PPSV23 (PNEUMOVAX) Branch TDAP (ADACEL) VACCINE 2019-08-10 Completed Uni versity of 00:00:00 [facility] TDAP 2019-08-10 Completed [facility] 00:00:00 [facility] Pneumococcal 2019-08-10 Completed [facility] o f Polysaccharide, 00:00:00 [place] [facility] PPSV23 (PNEUMOVAX) Branch TDAP (ADACEL) VACCINE 2019-08-10 Completed Uni versity of 00:00:00 [facility] TDAP 2019-08-10 Completed [facility] 00:00:00 [facility] Pneumococcal 2019-08-10 Completed [facility] o f Polysaccharide, 00:00:00 [place] [facility] PPSV23 (PNEUMOVAX) Branch TDAP (ADACEL) VACCINE 2019-08-10 Completed Uni versity of 00:00:00 [facility] TDAP 2019-08-10 Completed [facility] of 00:00:00 [facility] Pneumococcal 2019-08-10 Completed [facility] o f Polysaccharide, 00:00:00 [place] [facility] PPSV23 (PNEUMOVAX) Branch TDAP (ADACEL) VACCINE 2019-08-10 Completed Uni versity of 00:00:00 [facility] TDAP 2019-08-10 Completed [facility] of 00:00:00 [facility] Pneumococcal 2019-08-10 Completed [facility] o f Polysaccharide, 00:00:00 [place] [facility] PPSV23 (PNEUMOVAX) Branch TDAP (ADACEL) VACCINE 2019-08-10 Completed Uni versity of 00:00:00 [facility] TDAP 2019-08-10 Completed [facility] of 00:00:00 [facility] Pneumococcal 2019-08-10 Completed [facility] o f Polysaccharide, 00:00:00 [place] [facility] PPSV23 (PNEUMOVAX) Branch TDAP (ADACEL) VACCINE 2019-08-10 Completed Uni versity of 00:00:00 [facility] TDAP 2019-08-10 Completed [facility] of 00:00:00 [facility] Pneumococcal 2019-08-10 Completed [facility] o f Polysaccharide, 00:00:00 [place] [facility] PPSV23 (PNEUMOVAX) Branch TDAP (ADACEL) VACCINE 2019-08-10 Completed Uni versity of 00:00:00 [facility] TDAP 2019-08-10 Completed [facility] of 00:00:00 [facility] Pneumococcal 2019-08-10 Completed University o f Polysaccharide, 00:00:00 [facility] ical PPSV23 (PNEUMOVAX) Branch TDAP (ADACEL) VACCINE 2019-08-10 Completed Uni versity of 00:00:00 [facility] TDAP 2019-08-10 Completed [facility] of 00:00:00 [facility] Pneumococcal 2019-08-10 Completed University o f Polysaccharide, 00:00:00 [facility] ical PPSV23 (PNEUMOVAX) Branch TDAP (ADACEL) VACCINE 2019-08-10 Completed Uni versity of 00:00:00 [facility] TDAP 2019-08-10 Completed [facility] of 00:00:00 [facility] Influenza Virus 2019-07-04 Completed Universit y of Vaccine 00:00:00 [facility] Influenza Virus 2019-07-04 Completed Universit y of Vaccine Recomb Quad 00:00:00 [facility], Preserv and ABX Branc h Free 18-64 YRS Influenza Virus 2019-07-04 Completed Universit y of Vaccine 00:00:00 [facility] Influenza Virus 2019-07-04 Completed Universit y of Vaccine Recomb Quad 00:00:00 [facility], Preserv and ABX Branc h Free 18-64 YRS Influenza Virus 2019-07-04 Completed Universit y of Vaccine 00:00:00 [facility] Influenza Virus 2019-07-04 Completed Universit y of Vaccine Recomb Quad 00:00:00 [facility], Preserv and ABX Branc h Free 18-64 YRS Influenza Virus 2019-07-04 Completed Universit y of Vaccine 00:00:00 [facility] Influenza Virus 2019-07-04 Completed Universit y of Vaccine Recomb Quad 00:00:00 [facility], Preserv and ABX Branc h Free 18-64 YRS Influenza Virus 2019-07-04 Completed Universit y of Vaccine 00:00:00 [facility] Influenza Virus 2019-07-04 Completed Universit y of Vaccine Recomb Quad 00:00:00 [facility], Preserv and ABX Branc h Free 18-64 YRS Influenza Virus 2019-07-04 Completed Universit y of Vaccine 00:00:00 [facility] Influenza Virus 2019-07-04 Completed Universit y of Vaccine Recomb Quad 00:00:00 [facility], Preserv and ABX Branc h Free 18-64 YRS Influenza Virus 2019-07-04 Completed Universit y of Vaccine 00:00:00 [facility] Influenza Virus 2019-07-04 Completed Universit y of Vaccine Recomb Quad 00:00:00 [facility], Preserv and ABX Branc h Free 18-64 YRS Influenza Virus 2019-07-04 Completed Universit y of Vaccine 00:00:00 [facility] Influenza Virus 2019-07-04 Completed [facility]it y of Vaccine Recomb Quad 00:00:00 [facility], Preserv and ABX Branc h Free 18-64 YRS Influenza Virus 2019-07-04 Completed Universit y of Vaccine 00:00:00 [facility] Influenza Virus 2019-07-04 Completed [facility]it y of Vaccine Recomb Quad 00:00:00 [facility], Preserv and ABX Branc h Free 18-64 YRS Influenza Virus 2019-07-04 Completed Universit y of Vaccine 00:00:00 [facility] Influenza Virus 2019-07-04 Completed [facility]it y of Vaccine Recomb Quad 00:00:00 [facility], Preserv and ABX Branc h Free 18-64 YRS Influenza Virus 2019-07-04 Completed [facility]it y of Vaccine 00:00:00 [facility] Influenza Virus 2019-07-04 Completed [facility]it y of Vaccine Recomb Quad 00:00:00 [facility], Preserv and ABX Branc h Free 18-64 YRS Influenza Virus 2019-07-04 Completed [facility]it y of Vaccine 00:00:00 [facility] Influenza Virus 2019-07-04 Completed [facility]it y of Vaccine Recomb Quad 00:00:00 [facility], Preserv and ABX Branc h Free 18-64 YRS Influenza Virus 2019-07-04 Completed [facility]it y of Vaccine 00:00:00 [facility] Influenza Virus 2019-07-04 Completed [facility]it y of Vaccine Recomb Quad 00:00:00 [facility], Preserv and ABX Branc h Free 18-64 YRS Influenza Virus 2019-07-04 Completed [facility]it y of Vaccine 00:00:00 [facility] Influenza Virus 2019-07-04 Completed [facility]it y of Vaccine Recomb Quad 00:00:00 [facility], Preserv and ABX Branc h Free 18-64 YRS Influenza Virus 2019-07-04 Completed [facility]it y of Vaccine 00:00:00 [facility] Influenza Virus 2019-07-04 Completed [facility]it y of Vaccine Recomb Quad 00:00:00 [facility], Preserv and ABX Branc h Free 18-64 YRS Influenza Virus 2019-07-04 Completed [facility]it y of Vaccine 00:00:00 [facility] Influenza Virus 2019-07-04 Completed Universit y of Vaccine Recomb Quad 00:00:00 [facility], Preserv and ABX Branc h Free 18-64 YRS Influenza Virus 2019-07-04 [facility]00 [facility] Influenza Virus 2019-07-04 Completed [facility] 00:00:00 [facility], Preserv and ABX Branc h Free 18-64 YRS Influenza Virus 2019-07-04 Completed [facility] 00:00:00 [facility] Influenza Virus 2019-07-04 Completed [facility] 00:00:00 [facility], Preserv and ABX Branc h Free 18-64 YRS Influenza Virus 2019-07-04 Completed [facility] 00:00:00 [facility] Influenza Virus 2019-07-04 Completed [facility] 00:00:00 [facility], Preserv and ABX Branc h Free 18-64 YRS Influenza Virus 2019-07-04 Completed [facility]ine 00:00:00 [facility] Influenza Virus 2019-07-04 Completed [facility]ine [facility] 00:00:00 [facility], Preserv and ABX Branc h Free 18-64 YRS Influenza Virus 2019-07-04 Completed [facility] 00:00:00 [facility] Influenza Virus 2019-07-04 Completed [facility] 00:00:00 [facility], Preserv and ABX Branc h Free 18-64 YRS Influenza Virus 2019-07-04 Completed [facility]ine 00:00:00 [facility] Influenza Virus 2019-07-04 Completed [facility]ine [facility] 00:00:00 [facility], Preserv and ABX Branc h Free 18-64 YRS Influenza Virus 2019-07-04 Completed [facility]ine 00:00:00 [facility] Influenza Virus 2019-07-04 Completed [facility]ine [facility] 00:00:00 [facility], Preserv and ABX Branc h Free 18-64 YRS Influenza Virus 2019-07-04 Completed [facility] Vaccine 00:00:00 [facility] Influenza Virus 2019-07-04 Completed [facility]ine [facility] 00:00:00 [facility], Preserv and ABX Branc h Free 18-64 YRS Influenza Virus 2019-07-04 Completed [facility]ine 00:00:00 [facility] Influenza Virus 2019-07-04 Completed [facility]ine [facility] 00:00:00 [facility], Preserv and ABX Branc h Free 18-64 YRS Influenza Virus 2019-07-04 Completed [facility] Vaccine 00:00:00 [facility] Influenza Virus 2019-07-04 Completed [facility]ine [facility] 00:00:00 [facility], Preserv and ABX Branc h Free 18-64 YRS Influenza Virus 2019-07-04 Completed [facility]ine 00:00:00 [facility] Influenza Virus 2019-07-04 Completed [facility]ine [facility] 00:00:00 [facility], Preserv and ABX Branc h Free 18-64 YRS Influenza Virus 2019-07-04 Completed [facility] Vaccine 00:00:00 [facility] Influenza Virus 2019-07-04 Completed [facility]ine [facility] 00:00:00 [facility], Preserv and ABX Branc h Free 18-64 YRS Influenza Virus 2019-07-04 Completed [facility]ine 00:00:00 [facility] Influenza Virus 2019-07-04 Completed [facility]ine [facility] 00:00:00 [facility], Preserv and ABX Branc h Free 18-64 YRS Influenza Virus 2019-07-04 Completed [facility] Vaccine 00:00:00 [facility] Influenza Virus 2019-07-04 Completed [facility]ine [facility] 00:00:00 [facility], Preserv and ABX Branc h Free 18-64 YRS Influenza Virus 2019-07-04 Completed [facility]ine 00:00:00 [facility] Influenza Virus 2019-07-04 Completed [facility]ine [facility] 00:00:00 [facility], Preserv and ABX Branc h Free 18-64 YRS Influenza Virus 2019-07-04 Completed [facility]ine 00:00:00 [facility] Influenza Virus 2019-07-04 Completed [facility]ine [facility] 00:00:00 [facility], Preserv and ABX Branc h Free 18-64 YRS Influenza Virus 2019-07-04 Completed [facility]ine 00:00:00 [facility] Influenza Virus 2019-07-04 Completed [facility]ine [facility] 00:00:00 [facility], Preserv and ABX Branc h Free 18-64 YRS Influenza Virus 2019-07-04 Completed [facility]ine 00:00:00 [facility] Influenza Virus 2019-07-04 Completed [facility]ine [facility] 00:00:00 [facility], Preserv and ABX Branc h Free 18-64 YRS Influenza Virus 2019-07-04 Completed [facility]ine 00:00:00 [facility] Influenza Virus 2019-07-04 Completed [facility]ine [facility] 00:00:00 [facility], Preserv and ABX Branc h Free 18-64 YRS Influenza Virus 2019-07-04 Completed [facility]ine 00:00:00 [facility] Influenza Virus 2019-07-04 Completed [facility]ine [facility] 00:00:00 [facility], Preserv and ABX Branc h Free 18-64 YRS Influenza Virus 2019-07-04 Completed [facility]ine 00:00:00 [facility] Influenza Virus 2019-07-04 Completed [facility]ine [facility] 00:00:00 [facility], Preserv and ABX Branc h Free 18-64 YRS Influenza Virus 2019-07-04 Completed [facility]ine 00:00:00 [facility] Influenza Virus 2019-07-04 Completed [facility]ine [facility] 00:00:00 [facility], Preserv and ABX Branc h Free 18-64 YRS Influenza Virus 2019-07-04 Completed [facility]ine 00:00:00 [facility] Influenza Virus 2019-07-04 Completed [facility]ine [facility] 00:00:00 [facility], Preserv and ABX Branc h Free 18-64 YRS Influenza Virus 2019-07-04 Completed [facility]ine 00:00:00 [facility] Influenza Virus 2019-07-04 Completed [facility]ine [facility] 00:00:00 [facility], Preserv and ABX Branc h Free 18-64 YRS Influenza Virus 2019-07-04 Completed [facility] Vaccine 00:00:00 [facility] Influenza Virus 2019-07-04 Completed [facility]ine [facility] 00:00:00 [facility], Preserv and ABX Branc h Free 18-64 YRS Influenza Virus 2019-07-04 Completed [facility]ine 00:00:00 [facility] Influenza Virus 2019-07-04 Completed [facility]ine [facility] 00:00:00 [facility], Preserv and ABX Branc h Free 18-64 YRS Influenza Virus 2019-07-04 Completed [facility]ine 00:00:00 [facility] Influenza Virus 2019-07-04 Completed [facility]ine [facility] 00:00:00 [facility], Preserv and ABX Branc h Free 18-64 YRS Influenza Virus 2019-07-04 Completed [facility]ine 00:00:00 [facility] Influenza Virus 2019-07-04 Completed [facility]ine [facility] 00:00:00 [facility], Preserv and ABX Branc h Free 18-64 YRS Influenza Virus 2019-07-04 Completed [facility]ine 00:00:00 [facility] Influenza Virus 2019-07-04 Completed [facility] 00:00:00 [facility], Preserv and ABX Branc h Free 18-64 YRS Influenza Virus 2019-07-04 Completed [facility]ine 00:00:00 [facility] Influenza Virus 2019-07-04 Completed [facility]ine [facility] 00:00:00 [facility], Preserv and ABX Branc h Free 18-64 YRS Influenza Virus 2019-07-04 Completed [facility]ine 00:00:00 [facility] Influenza Virus 2019-07-04 Completed [facility] 00[facility]00:00 [facility], Preserv and ABX Branc h Free 18-64 YRS Influenza Virus 2019-07-04 Completed [facility]ine 00:00:00 [facility] Influenza Virus 2019-07-04 Completed [facility]ine [facility] 00:00:00 [facility], Preserv and ABX Branc h Free 18-64 YRS Influenza Virus 2019-07-04 Completed [facility]ine 00:00:00 [facility] Influenza Virus 2019-07-04 Completed [facility]ine [facility] 00:00:00 [facility], Preserv and ABX Branc h Free 18-64 YRS Influenza Virus 2019-07-04 Completed [facility]ine 00:00:00 [facility] Influenza Virus 2019-07-04 Completed [facility]ine [facility] 00:00:00 [facility], Preserv and ABX Branc h Free 18-64 YRS Influenza Virus 2019-07-04 Completed [facility]ine 00:00:00 [facility] Influenza Virus 2019-07-04 Completed [facility] 00:00:00 [facility], Preserv and ABX Branc h Free 18-64 YRS Influenza Virus 2019-07-04 Completed [facility]ine 00:00:00 [facility] Influenza Virus 2019-07-04 Completed [facility]ine [facility] 00:00:00 [facility], Preserv and ABX Branc h Free 18-64 YRS Influenza Virus 2019-07-04 Completed [facility] 00:00:00 [facility] Influenza Virus 2019-07-04 Completed [facility] 00:00:00 [facility], Preserv and ABX Branc h Free 18-64 YRS Influenza Virus 2019-07-04 Completed [facility]ine 00:00:00 [facility] Influenza Virus 2019-07-04 Completed [facility] 00:00:00 [facility], Preserv and ABX Branc h Free 18-64 YRS Influenza Virus 2019-07-04 Completed [facility]ine 00:00:00 [facility] Influenza Virus 2019-07-04 Completed [facility]ine [facility] 00:00:00 [facility], Preserv and ABX Branc h Free 18-64 YRS Influenza Virus 2019-07-04 Completed [facility]ine 00:00:00 [facility] Influenza Virus 2019-07-04 Completed [facility]ine [facility] 00:00:00 [facility], Preserv and ABX Branc h Free 18-64 YRS Influenza Virus 2019-07-04 Completed [facility]ine 00:00:00 [facility] Influenza Virus 2019-07-04 Completed [facility] 00:00:00 [facility], Preserv and ABX Branc h Free 18-64 YRS Influenza Virus 2019-07-04 Completed [facility]ine 00:00:00 [facility] Influenza Virus 2019-07-04 Completed [facility]ine [facility] 00:00:00 [facility], Preserv and ABX Branc h Free 18-64 YRS Influenza Virus 2019-07-04 Completed [facility]ine 00:00:00 [facility] Influenza Virus 2019-07-04 Completed [facility]ine [facility] 00:00:00 [facility], Preserv and ABX Branc h Free 18-64 YRS Influenza Virus 2019-07-04 Completed [facility] Vaccine 00:00:00 [facility] Influenza Virus 2019-07-04 Completed [facility]ine [facility] 00:00:00 [facility], Preserv and ABX Branc h Free 18-64 YRS Influenza Virus 2019-07-04 Completed [facility]ine 00:00:00 [facility] Influenza Virus 2019-07-04 Completed [facility]ine [facility] 00:00:00 [facility], Preserv and ABX Branc h Free 18-64 YRS Influenza Virus 2019-07-04 Completed [facility]ine 00:00:00 [facility] Influenza Virus 2019-07-04 Completed [facility] 00:00:00 [facility], Preserv and ABX Branc h Free 18-64 YRS Influenza Virus 2019-07-04 Completed [facility]ine 00:00:00 [facility] Influenza Virus 2019-07-04 Completed [facility]ine [facility] 00:00:00 [facility], Preserv and ABX Branc h Free 18-64 YRS Influenza Virus 2019-07-04 Completed [facility]ine 00:00:00 [facility] Influenza Virus 2019-07-04 Completed [facility] 00:00:00 [facility], Preserv and ABX Branc h Free 18-64 YRS Influenza Virus 2019-07-04 Completed [facility]ine 00:00:00 [facility] Influenza Virus 2019-07-04 Completed [facility]ine [facility] 00:00:00 [facility], Preserv and ABX Branc h Free 18-64 YRS Influenza Virus 2019-07-04 Completed [facility]ine 00:00:00 [facility] Influenza Virus 2019-07-04 Completed [facility]ine [facility] 00:00:00 [facility], Preserv and ABX Branc h Free 18-64 YRS Influenza Virus 2019-07-04 Completed [facility]ine 00:00:00 [facility] Influenza Virus 2019-07-04 Completed [facility]ine [facility] 00:00:00 [facility], Preserv and ABX Branc h Free 18-64 YRS Influenza Virus 2019-07-04 Completed [facility]ine 00:00:00 [facility] Influenza Virus 2019-07-04 Completed [facility]ine [facility] 00:00:00 [facility], Preserv and ABX Branc h Free 18-64 YRS Influenza Virus 2019-07-04 Completed [facility]ine 00:00:00 [facility] Influenza Virus 2019-07-04 Completed [facility] 00:00:00 [facility], Preserv and ABX Branc h Free 18-64 YRS Influenza Virus 2019-07-04 Completed [facility]ine 00:00:00 [facility] Influenza Virus 2019-07-04 Completed [facility] 00:00:00 [facility], Preserv and ABX Branc h Free 18-64 YRS Influenza Virus 2019-07-04 Completed [facility]ine 00:00:00 [facility] Influenza Virus 2019-07-04 Completed [facility]ine [facility] 00:00:00 [facility], Preserv and ABX Branc h Free 18-64 YRS Influenza Virus 2019-07-04 Completed [facility]ine 00:00:00 [facility] Influenza Virus 2019-07-04 Completed [facility]ine [facility] 00:00:00 [facility], Preserv and ABX Branc h Free 18-64 YRS Influenza Virus 2019-07-04 Completed [facility]ine 00:00:00 [facility] Influenza Virus 2019-07-04 Completed [facility]ine [facility] 00:00:00 [facility], Preserv and ABX Branc h Free 18-64 YRS Influenza Virus 2019-07-04 Completed [facility]ine 00:00:00 [facility] Influenza Virus 2019-07-04 Completed [facility]ine [facility] 00:00:00 [facility], Preserv and ABX Branc h Free 18-64 YRS Influenza Virus 2019-07-04 Completed [facility]ine 00:00:00 [facility] Influenza Virus 2019-07-04 Completed [facility]ine [facility] 00:00:00 [facility], Preserv and ABX Branc h Free 18-64 YRS Influenza Virus 2019-07-04 Completed [facility]ine 00:00:00 [facility] Influenza Virus 2019-07-04 Completed [facility] 00:00:00 [facility], Preserv and ABX Branc h Free 18-64 YRS Influenza Virus 2019-07-04 Completed [facility] Vaccine 00:00:00 [facility] Influenza Virus 2019-07-04 Completed [facility] 00:00:00 [facility], Preserv and ABX Branc h Free 18-64 YRS Influenza Virus 2019-07-04 Completed [facility]ine 00:00:00 [facility] Influenza Virus 2019-07-04 Completed [facility]ine [facility] 00:00:00 [facility], Preserv and ABX Branc h Free 18-64 YRS Influenza Virus 2019-07-04 Completed [facility]ine 00:00:00 [facility] Influenza Virus 2019-07-04 Completed [facility]ine [facility] 00:00:00 [facility], Preserv and ABX Branc h Free 18-64 YRS Influenza Virus 2019-07-04 Completed [facility]ine 00:00:00 [facility] Influenza Virus 2019-07-04 Completed [facility]ine [facility] 00:00:00 [facility], Preserv and ABX Branc h Free 18-64 YRS Influenza Virus 2019-07-04 Completed [facility]ine 00:00:00 [facility] Influenza Virus 2019-07-04 Completed [facility]ine [facility] 00:00:00 [facility], Preserv and ABX Branc h Free 18-64 YRS Influenza Virus 2019-07-04 Completed [facility] Vaccine 00:00:00 [facility] Influenza Virus 2019-07-04 Completed [facility] Vaccine [facility] 00:00:00 [facility], Preserv and ABX Branc h Free 18-64 YRS Influenza Virus 2019-07-04 Completed [facility] Vaccine 00:00:00 [facility] Influenza Virus 2019-07-04 Completed [facility]ine [facility] 00:00:00 [facility], Preserv and ABX Branc h Free 18-64 YRS Influenza Virus 2019-07-04 Completed [facility] Vaccine 00:00:00 [facility] Influenza Virus 2019-07-04 Completed [facility]ine [facility] 00:00:00 [facility], Preserv and ABX Branc h Free 18-64 YRS Influenza Virus 2019-07-04 Completed [facility] Vaccine 00:00:00 [facility] Influenza Virus 2019-07-04 Completed [facility] Vaccine [facility] 00:00:00 [facility], Preserv and ABX Branc h Free 18-64 YRS Influenza Virus 2019-07-04 Completed [facility] Vaccine 00:00:00 [facility] Influenza Virus 2019-07-04 Completed [facility]ine [facility] 00:00:00 [facility], Preserv and ABX Branc h Free 18-64 YRS Influenza Virus 2019-07-04 Completed [facility] Vaccine 00:00:00 [facility] Influenza Virus 2019-07-04 Completed [facility]ine [facility] 00:00:00 [facility], Preserv and ABX Branc h Free 18-64 YRS Influenza Virus 2019-07-04 Completed [facility] Vaccine 00:00:00 [facility] Influenza Virus 2019-07-04 Completed [facility] Vaccine [facility] 00:00:00 [facility], Preserv and ABX Branc h Free 18-64 YRS Influenza Virus 2019-07-04 Completed [facility]ine 00:00:00 [facility] Influenza Virus 2019-07-04 Completed [facility]ine [facility] 00:00:00 [facility], Preserv and ABX Branc h Free 18-64 YRS Influenza Virus 2019-07-04 Completed [facility] Vaccine 00:00:00 [facility] Influenza Virus 2019-07-04 Completed [facility] Vaccine [facility] 00:00:00 [facility], Preserv and ABX Branc h Free 18-64 YRS Influenza Virus 2019-07-04 Completed [facility]ine 00:00:00 [facility] Influenza Virus 2019-07-04 Completed [facility] Vaccine [facility] 00:00:00 [facility], Preserv and ABX Branc h Free 18-64 YRS Influenza Virus 2019-07-04 Completed [facility]ine 00:00:00 [facility] Influenza Virus 2019-07-04 Completed [facility]ine [facility] 00:00:00 [facility], Preserv and ABX Branc h Free 18-64 YRS Influenza Virus 2018-06-30 Completed [facility]ine Quad IM 3+ 00:00:00 [facility] Influenza Virus 2018-06-30 Completed [facility] Vaccine Quad IM 3+ 00:00:00 [facility] Influenza Virus 2018-06-30 Completed [facility] Vaccine Quad IM 3+ 00:00:00 [facility] Influenza Virus 2018-06-30 Completed [facility] Vaccine Quad IM 3+ 00:00:00 [facility] Influenza Virus 2018-06-30 Completed [facility] Vaccine Quad IM 3+ 00:00:00 [facility] Influenza Virus 2018-06-30 Completed [facility] Vaccine Quad IM 3+ 00:00:00 [facility] Influenza Virus 2018-06-30 Completed [facility] Vaccine Quad IM 3+ 00:00:00 [facility] Influenza Virus 2018-06-30 Completed [facility] Vaccine Quad IM 3+ 00:00:00 [facility] Influenza Virus 2018-06-30 Completed [facility] Vaccine Quad IM 3+ 00:00:00 [facility] Influenza Virus 2018-06-30 Completed [facility] Vaccine Quad IM 3+ 00:00:00 [facility] Influenza Virus 2018-06-30 Completed [facility] Vaccine Quad IM 3+ 00:00:00 [facility] Influenza Virus 2018-06-30 Completed [facility] Vaccine Quad IM 3+ 00:00:00 [facility] Influenza Virus 2018-06-30 Completed [facility] Vaccine Quad IM 3+ 00:00:00 [facility] Influenza Virus 2018-06-30 Completed [facility] Vaccine Quad IM 3+ 00:00:00 [facility] Influenza Virus 2018-06-30 Completed [facility] Vaccine Quad IM 3+ 00:00:00 [facility] Influenza Virus 2018-06-30 Completed [facility] Vaccine Quad IM 3+ 00:00:00 [facility] Influenza Virus 2018-06-30 Completed [facility] Vaccine Quad IM 3+ 00:00:00 [facility] Influenza Virus 2018-06-30 Completed [facility] Vaccine Quad IM 3+ 00:00:00 [facility] Influenza Virus 2018-06-30 Completed [facility] Vaccine Quad IM 3+ 00:00:00 [facility] Influenza Virus 2018-06-30 Completed [facility] Vaccine Quad IM 3+ 00:00:00 [facility] Influenza Virus 2018-06-30 Completed [facility] Vaccine Quad IM 3+ 00:00:00 [facility] Influenza Virus 2018-06-30 Completed [facility] Vaccine Quad IM 3+ 00:00:00 [facility] Influenza Virus 2018-06-30 Completed [facility] Vaccine Quad IM 3+ 00:00:00 [facility] Influenza Virus 2018-06-30 Completed [facility] Vaccine Quad IM 3+ 00:00:00 [facility] Influenza Virus 2018-06-30 Completed [facility] Vaccine Quad IM 3+ 00:00:00 [facility] Influenza Virus 2018-06-30 Completed [facility] Vaccine Quad IM 3+ 00:00:00 [facility] Influenza Virus 2018-06-30 Completed [facility] Vaccine Quad IM 3+ 00:00:00 [facility] Influenza Virus 2018-06-30 Completed [facility] Vaccine Quad IM 3+ 00:00:00 [facility] Influenza Virus 2018-06-30 Completed [facility] Vaccine Quad IM 3+ 00:00:00 [facility] Influenza Virus 2018-06-30 Completed [facility] Vaccine Quad IM 3+ 00:00:00 [facility] Influenza Virus 2018-06-30 Completed [facility] Vaccine Quad IM 3+ 00:00:00 [facility] Influenza Virus 2018-06-30 Completed [facility] Vaccine Quad IM 3+ 00:00:00 [facility] Influenza Virus 2018-06-30 Completed [facility] Vaccine Quad IM 3+ 00:00:00 [facility] Influenza Virus 2018-06-30 Completed [facility] Vaccine Quad IM 3+ 00:00:00 [facility] Influenza Virus 2018-06-30 Completed [facility] Vaccine Quad IM 3+ 00:00:00 [facility] Influenza Virus 2018-06-30 Completed [facility] Vaccine Quad IM 3+ 00:00:00 [facility] Influenza Virus 2018-06-30 Completed [facility] Vaccine Quad IM 3+ 00:00:00 [facility] Influenza Virus 2018-06-30 Completed [facility] Vaccine Quad IM 3+ 00:00:00 [facility] Influenza Virus 2018-06-30 Completed [facility] Vaccine Quad IM 3+ 00:00:00 [facility] Influenza Virus 2018-06-30 Completed [facility] Vaccine Quad IM 3+ 00:00:00 [facility] Influenza Virus 2018-06-30 Completed [facility] Vaccine Quad IM 3+ 00:00:00 [facility] Influenza Virus 2018-06-30 Completed [facility] Vaccine Quad IM 3+ 00:00:00 [facility] Influenza Virus 2018-06-30 Completed [facility] Vaccine Quad IM 3+ 00:00:00 [facility] Influenza Virus 2018-06-30 Completed [facility] Vaccine Quad IM 3+ 00:00:00 [facility] Influenza Virus 2018-06-30 Completed [facility] Vaccine Quad IM 3+ 00:00:00 [facility] Influenza Virus 2018-06-30 Completed [facility] Vaccine Quad IM 3+ 00:00:00 [facility] Influenza Virus 2018-06-30 Completed [facility] Vaccine Quad IM 3+ 00:00:00 [facility] Influenza Virus 2018-06-30 Completed [facility] Vaccine Quad IM 3+ 00:00:00 [facility] Influenza Virus 2018-06-30 Completed [facility] Vaccine Quad IM 3+ 00:00:00 [facility] Influenza Virus 2018-06-30 Completed [facility] Vaccine Quad IM 3+ 00:00:00 [facility] Influenza Virus 2018-06-30 Completed [facility] Vaccine Quad IM 3+ 00:00:00 [facility] Influenza Virus 2018-06-30 Completed [facility] Vaccine Quad IM 3+ 00:00:00 [facility] Influenza Virus 2018-06-30 Completed [facility] Vaccine Quad IM 3+ 00:00:00 [facility] Influenza Virus 2018-06-30 Completed [facility] Vaccine Quad IM 3+ 00:00:00 [facility] Influenza Virus 2018-06-30 Completed [facility] Vaccine Quad IM 3+ 00:00:00 [facility] Influenza Virus 2018-06-30 Completed [facility] of Vaccine Quad IM 3+ 00:00:00 [facility] Influenza Virus 2018-06-30 Completed [facility] of Vaccine Quad IM 3+ 00:00:00 [facility] Influenza Virus 2018-06-30 Completed [facility] of Vaccine Quad IM 3+ 00:00:00 [facility] Influenza Virus 2018-06-30 Completed [facility] Vaccine Quad IM 3+ 00:00:00 [facility] Influenza Virus 2018-06-30 Completed [facility] of Vaccine Quad IM 3+ 00:00:00 [facility] Influenza Virus 2018-06-30 Completed [facility] Vaccine Quad IM 3+ 00:00:00 [facility] Influenza Virus 2018-06-30 Completed [facility] Vaccine Quad IM 3+ 00:00:00 [facility] Influenza Virus 2018-06-30 Completed [facility] of Vaccine Quad IM 3+ 00:00:00 [facility] Influenza Virus 2018-06-30 Completed [facility] of Vaccine Quad IM 3+ 00:00:00 [facility] Influenza Virus 2018-06-30 Completed [facility] of Vaccine Quad IM 3+ 00:00:00 [facility] Influenza Virus 2018-06-30 Completed [facility] of Vaccine Quad IM 3+ 00:00:00 [facility] Influenza Virus 2018-06-30 Completed [facility] of Vaccine Quad IM 3+ 00:00:00 [facility] Influenza Virus 2018-06-30 Completed [facility] Vaccine Quad IM 3+ 00:00:00 [facility] Influenza Virus 2018-06-30 Completed [facility] Vaccine Quad IM 3+ 00:00:00 [facility] Influenza Virus 2018-06-30 Completed [facility] Vaccine Quad IM 3+ 00:00:00 [facility] Influenza Virus 2018-06-30 Completed [facility] Vaccine Quad IM 3+ 00:00:00 [facility] Influenza Virus 2018-06-30 Completed [facility] Vaccine Quad IM 3+ 00:00:00 [facility] Influenza Virus 2018-06-30 Completed [facility] Vaccine Quad IM 3+ 00:00:00 [facility] Influenza Virus 2018-06-30 Completed [facility] of Vaccine Quad IM 3+ 00:00:00 [facility] Influenza Virus 2018-06-30 Completed [facility] Vaccine Quad IM 3+ 00:00:00 [facility] Influenza Virus 2018-06-30 Completed [facility] of Vaccine Quad IM 3+ 00:00:00 [facility] Influenza Virus 2018-06-30 Completed [facility] of Vaccine Quad IM 3+ 00:00:00 [facility] Influenza Virus 2018-06-30 Completed [facility] of Vaccine Quad IM 3+ 00:00:00 [facility] Influenza Virus 2018-06-30 Completed [facility] of Vaccine Quad IM 3+ 00:00:00 [facility] Influenza Virus 2018-06-30 Completed [facility] of Vaccine Quad IM 3+ 00:00:00 [facility] Influenza Virus 2018-06-30 Completed [facility] of Vaccine Quad IM 3+ 00:00:00 [facility] Influenza Virus 2018-06-30 Completed [facility] of Vaccine Quad IM 3+ 00:00:00 [facility] Influenza Virus 2018-06-30 Completed [facility] of Vaccine Quad IM 3+ 00:00:00 [facility] Influenza Virus 2018-06-30 Completed [facility] of Vaccine Quad IM 3+ 00:00:00 [facility] Influenza Virus 2018-06-30 Completed [facility] of Vaccine Quad IM 3+ 00:00:00 [facility] Influenza Virus 2018-06-30 Completed [facility] of Vaccine Quad IM 3+ 00:00:00 [facility] Influenza Virus 2018-06-30 Completed [facility] Vaccine Quad IM 3+ 00:00:00 [facility] Influenza Virus 2018-06-30 Completed [facility] of Vaccine Quad IM 3+ 00:00:00 [facility] Influenza Virus 2018-06-30 Completed [facility] Vaccine Quad IM 3+ 00:00:00 [facility] Influenza Virus 2018-06-30 Completed [facility] Vaccine Quad IM 3+ 00:00:00 [facility] Influenza Virus 2018-06-30 Completed [facility] Vaccine Quad IM 3+ 00:00:00 [facility] Influenza Virus 2018-06-30 Completed [facility] Vaccine Quad IM 3+ 00:00:00 [facility] Influenza Virus 2017-06-15 Completed [facility] of Vaccine Quad ID [id number] 00:00:[address] [facility] Influenza Virus 2017-06-15 Completed [facility] of Vaccine Quad ID [id number] 00:00:[address] [facility] Influenza Virus 2017-06-15 Completed [facility] of Vaccine Quad ID [id number] 00:00:[address] [facility] Influenza Virus 2017-06-15 Completed [facility] of Vaccine Quad ID 18-64 00:00:[address] [facility] Influenza Virus 2017-06-15 Completed [facility]it y [...] y of Vaccine Quad ID [id number] 00:00:00 [facility] Influenza Virus 2017-06-15 [...] [facility] Vaccine Quad IM 00:00:00 [facility] Multi-dose 6+ [facility] Influenza Virus 2016-08-05 [...] [place] [facility] Multi-dose 6+ [facility] Influenza Virus 2016-08-05 Completed [facility] Vaccine Quad IM 00:00:00 [place] [facility] Multi-dose 6+ [facility] Pneumococcal 13 2016-03-07 Completed [facility] of Conjugate, PCV13 00:00:00 [facility] dical (Prevnar 13) Branch Meningococcal B, OMV 2016-03-07 Completed Univ ersity of 00:00:00 [facility] Pneumococcal 13 2016-03-07 Completed [facility] of Conjugate, PCV13 00:00:00 [facility] dical (Prevnar 13) Branch Meningococcal B, OMV 2016-03-07 Completed [facility] ersity of 00:00:00 [facility] Pneumococcal 13 2016-03-07 Completed [facility] of Conjugate, PCV13 00:00:00 [facility] dical (Prevnar 13) Branch Meningococcal B, OMV 2016-03-07 Completed [facility] ersity of 00:00:00 [facility] Pneumococcal 13 2016-03-07 Completed [facility] of Conjugate, PCV13 00:00:00 [facility] dical (Prevnar 13) Branch Meningococcal B, OMV 2016-03-07 Completed [facility] ersity of 00:00:00 [facility] Pneumococcal 13 2016-03-07 Completed [facility] of Conjugate, PCV13 00:00:00 [place] [facility] (Prevnar 13) Branch Meningococcal B, V 2016-03-07 Completed [facility] ersity of 00:00:00 [facility] Pneumococcal 13 2016-03-07 Completed [facility] of Conjugate, PCV13 00:00:00 [place] [facility] (Prevnar 13) Branch Meningococcal B, V 2016-03-07 Completed [facility] ersity of 00:00:00 [facility] Pneumococcal 13 2016-03-07 Completed [facility] of Conjugate, PCV13 00:00:00 [place] [facility] (Prevnar 13) Branch Meningococcal B, [facility] 2016-03-07 Completed [facility] ersity of 00:00:00 [facility] Pneumococcal 13 2016-03-07 Completed [facility] of Conjugate, PCV13 00:00:00 [place] [facility] (Prevnar 13) Branch Meningococcal B, [facility] 2016-03-07 Completed [facility] ersity of 00:00:00 [facility] Pneumococcal 13 2016-03-07 Completed [facility] of Conjugate, PCV13 00:00:00 [place] [facility] (Prevnar 13) Branch Meningococcal B, [facility] 2016-03-07 Completed [facility] ersity of 00:00:00 [facility] Pneumococcal 13 2016-03-07 Completed [facility] of Conjugate, PCV13 00:00:00 [place] [facility] (Prevnar 13) Branch Meningococcal B, [facility] 2016-03-07 Completed [facility] ersity of 00:00:00 [facility] Pneumococcal 13 2016-03-07 Completed [facility] of Conjugate, PCV13 00:00:00 [place] [facility] (Prevnar 13) Branch Meningococcal B, [facility] 2016-03-07 Completed [facility] ersity of 00:00:00 [facility] Pneumococcal 13 2016-03-07 Completed [facility] of Conjugate, PCV13 00:00:00 [place] [facility] (Prevnar 13) Branch Meningococcal B, [facility] 2016-03-07 Completed [facility] ersity of 00:00:00 [facility] Pneumococcal 13 2016-03-07 Completed [facility] of Conjugate, PCV13 00:00:00 [place] [facility] (Prevnar 13) Branch Meningococcal B, [facility] 2016-03-07 Completed [facility] ersity of 00:00:00 [facility] Pneumococcal 13 2016-03-07 Completed [facility] of Conjugate, PCV13 00:00:00 [place] [facility] (Prevnar 13) Branch Meningococcal B, V 2016-03-07 Completed [facility] ersity of 00:00:00 [facility] Pneumococcal 13 2016-03-07 Completed [facility] of Conjugate, PCV13 00:00:00 [place] [facility] (Prevnar 13) Branch Meningococcal B, V 2016-03-07 Completed [facility] ersity of 00:00:00 [facility] Pneumococcal 13 2016-03-07 Completed [facility] of Conjugate, PCV13 00:00:00 [place] [facility] (Prevnar 13) Branch Meningococcal B, [facility] 2016-03-07 Completed [facility] ersity of 00:00:00 [facility] Pneumococcal 13 2016-03-07 Completed [facility] of Conjugate, PCV13 00:00:00 [place] [facility] (Prevnar 13) Branch Meningococcal B, [facility] 2016-03-07 Completed [facility] ersity of 00:00:00 [facility] Pneumococcal 13 2016-03-07 Completed [facility] of Conjugate, PCV13 00:00:00 [place] [facility] (Prevnar 13) Branch Meningococcal B, [facility] 2016-03-07 Completed [facility] ersity of 00:00:00 [facility] Pneumococcal 13 2016-03-07 Completed [facility] of Conjugate, PCV13 00:00:00 [place] [facility] (Prevnar 13) Branch Meningococcal B, [facility] 2016-03-07 Completed [facility] ersity of 00:00:00 [facility] Pneumococcal 13 2016-03-07 Completed [facility] of Conjugate, PCV13 00:00:00 [place] [facility] (Prevnar 13) Branch Meningococcal B, [facility] 2016-03-07 Completed [facility] ersity of 00:00:00 [facility] Pneumococcal 13 2016-03-07 Completed [facility] of Conjugate, PCV13 00:00:00 [place] [facility] (Prevnar 13) Branch Meningococcal B, [facility] 2016-03-07 Completed [facility] ersity of 00:00:00 [facility] Pneumococcal 13 2016-03-07 Completed [facility] of Conjugate, PCV13 00:00:00 [place] [facility] (Prevnar 13) Branch Meningococcal B, [facility] 2016-03-07 Completed [facility] ersity of 00:00:00 [facility] Pneumococcal 13 2016-03-07 Completed [facility] of Conjugate, PCV13 00:00:00 [place] [facility] (Prevnar 13) Branch Meningococcal B, V 2016-03-07 Completed [facility] ersity of 00:00:00 [facility] Pneumococcal 13 2016-03-07 Completed [facility] of Conjugate, PCV13 00:00:00 [place] [facility] (Prevnar 13) Branch Meningococcal B, V 2016-03-07 Completed [facility] ersity of 00:00:00 [facility] Pneumococcal 13 2016-03-07 Completed [facility] of Conjugate, PCV13 00:00:00 [place] [facility] (Prevnar 13) Branch Meningococcal B, V 2016-03-07 Completed [facility] ersity of 00:00:00 [facility] Pneumococcal 13 2016-03-07 Completed [facility] of Conjugate, PCV13 00:00:00 [place] [facility] (Prevnar 13) Branch Meningococcal B, V 2016-03-07 Completed [facility] ersity of 00:00:00 [facility] Pneumococcal 13 2016-03-07 Completed [facility] of Conjugate, PCV13 00:00:00 [place] [facility] (Prevnar 13) Branch Meningococcal B, [facility] 2016-03-07 Completed [facility] ersity of 00:00:00 [facility] Pneumococcal 13 2016-03-07 Completed [facility] of Conjugate, PCV13 00:00:00 [place] [facility] (Prevnar 13) Branch Meningococcal B, [facility] 2016-03-07 Completed [facility] ersity of 00:00:00 [facility] Pneumococcal 13 2016-03-07 Completed [facility] of Conjugate, PCV13 00:00:00 [place] [facility] (Prevnar 13) Branch Meningococcal B, [facility] 2016-03-07 Completed [facility] ersity of 00:00:00 [facility] Pneumococcal 13 2016-03-07 Completed [facility] of Conjugate, PCV13 00:00:00 [place] [facility] (Prevnar 13) Branch Meningococcal B, [facility] 2016-03-07 Completed [facility] ersity of 00:00:00 [facility] Pneumococcal 13 2016-03-07 Completed [facility] of Conjugate, PCV13 00:00:00 [place] [facility] (Prevnar 13) Branch Meningococcal B, [facility] 2016-03-07 Completed [facility] ersity of 00:00:00 [facility] Pneumococcal 13 2016-03-07 Completed [facility] of Conjugate, PCV13 00:00:00 [place] [facility] (Prevnar 13) Branch Meningococcal B, V 2016-03-07 Completed [facility] ersity of 00:00:00 [facility] Pneumococcal 13 2016-03-07 Completed [facility] of Conjugate, PCV13 00:00:00 [place] [facility] (Prevnar 13) Branch Meningococcal B, V 2016-03-07 Completed [facility] ersity of 00:00:00 [facility] Pneumococcal 13 2016-03-07 Completed [facility] of Conjugate, PCV13 00:00:00 [place] [facility] (Prevnar 13) Branch Meningococcal B, V 2016-03-07 Completed [facility] ersity of 00:00:00 [facility] Pneumococcal 13 2016-03-07 Completed [facility] of Conjugate, PCV13 00:00:00 [place] [facility] (Prevnar 13) Branch Meningococcal B, [facility] 2016-03-07 Completed [facility] ersity of 00:00:00 [facility] Pneumococcal 13 2016-03-07 Completed [facility] of Conjugate, PCV13 00:00:00 [place] [facility] (Prevnar 13) Branch Meningococcal B, [facility] 2016-03-07 Completed [facility] ersity of 00:00:00 [facility] Pneumococcal 13 2016-03-07 Completed [facility] of Conjugate, PCV13 00:00:00 [place] [facility] (Prevnar 13) Branch Meningococcal B, V 2016-03-07 Completed [facility] ersity of 00:00:00 [facility] Pneumococcal 13 2016-03-07 Completed [facility] of Conjugate, PCV13 00:00:00 [place] [facility] (Prevnar 13) Branch Meningococcal B, V 2016-03-07 Completed [facility] ersity of 00:00:00 [facility] Pneumococcal 13 2016-03-07 Completed [facility] of Conjugate, PCV13 00:00:00 [place] [facility] (Prevnar 13) Branch Meningococcal B, V 2016-03-07 Completed [facility] ersity of 00:00:00 [facility] Pneumococcal 13 2016-03-07 Completed [facility] of Conjugate, PCV13 00:00:00 [place] [facility] (Prevnar 13) Branch Meningococcal B, [facility] 2016-03-07 Completed [facility] 00:00:00 [facility] Pneumococcal 13 2016-03-07 Completed [facility] of Conjugate, PCV13 00:00:00 [place] [facility] (Prevnar 13) Branch Meningococcal B, [facility] 2016-03-07 Completed Univ ersity of 00:00:00 [facility] Pneumococcal 13 2016-03-07 Completed [facility] of Conjugate, PCV13 00:00:00 [place] [facility] (Prevnar 13) Branch Meningococcal B, V 2016-03-07 Completed [facility] ersity of 00:00:00 [facility] Pneumococcal 13 2016-03-07 Completed [facility] of Conjugate, PCV13 00:00:00 [place] [facility] (Prevnar 13) Branch Meningococcal B, [facility] 2016-03-07 Completed [facility] ersity of 00:00:00 [facility] Pneumococcal 13 2016-03-07 Completed [facility] of Conjugate, PCV13 00:00:00 [place] [facility] (Prevnar 13) Branch Meningococcal B, [facility] 2016-03-07 Completed [facility] ersity of 00:00:00 [facility] Pneumococcal 13 2016-03-07 Completed [facility] y of Conjugate, PCV13 00:00:00 [place] [facility] (Prevnar 13) Branch Meningococcal B, [facility] 2016-03-07 Completed [facility] ersity of 00:00:00 [facility] Pneumococcal 13 2016-03-07 Completed [facility] y of Conjugate, PCV13 00:00:00 [place] [facility] (Prevnar 13) Branch Meningococcal B, [facility] 2016-03-07 Completed [facility] ersity of 00:00:00 [facility] Pneumococcal 13 2016-03-07 Completed [facility] y of Conjugate, PCV13 00:00:00 [place] [facility] (Prevnar 13) Branch Meningococcal B, [facility] 2016-03-07 Completed [facility] ersity of 00:00:00 [facility] Pneumococcal 13 2016-03-07 Completed [facility] of Conjugate, PCV13 00:00:00 [place] [facility] (Prevnar 13) Branch Meningococcal B, [facility] 2016-03-07 Completed [facility] ersity of 00:00:00 [facility] Pneumococcal 13 2016-03-07 Completed [facility] of Conjugate, PCV13 00:00:00 [place] [facility] (Prevnar 13) Branch Meningococcal B, [facility] 2016-03-07 Completed [facility] ersity of 00:00:00 [facility] Pneumococcal 13 2016-03-07 Completed [facility] of Conjugate, PCV13 00:00:00 [place] [facility] (Prevnar 13) Branch Meningococcal B, V 2016-03-07 Completed [facility] ers[facility] of 00:00:00 [facility] Pneumococcal 13 2016-03-07 Completed [facility] of Conjugate, PCV13 00:00:00 [place] [facility] (Prevnar 13) Branch Meningococcal B, [facility] 2016-03-07 Completed [facility] ersity of 00:00:00 [facility] Pneumococcal 13 2016-03-07 Completed [facility] of Conjugate, PCV13 00:00:00 [place] [facility] (Prevnar 13) Branch Meningococcal B, [facility] 2016-03-07 Completed [facility] ersity of 00:00:00 [facility] Pneumococcal 13 2016-03-07 Completed [facility] y of Conjugate, PCV13 00:00:00 [place] [facility] (Prevnar 13) Branch Meningococcal B, [facility] 2016-03-07 Completed [facility] ersity of 00:00:00 [facility] Pneumococcal 13 2016-03-07 Completed [facility] y of Conjugate, PCV13 00:00:00 [place] [facility] (Prevnar 13) Branch Meningococcal B, [facility] 2016-03-07 Completed [facility] ersity of 00:00:00 [facility] Pneumococcal 13 2016-03-07 Completed [facility] y of Conjugate, PCV13 00:00:00 [place] [facility] (Prevnar 13) Branch Meningococcal B, [facility] 2016-03-07 Completed [facility] ersity of 00:00:00 [facility] Pneumococcal 13 2016-03-07 Completed [facility] y of Conjugate, PCV13 00:00:00 [place] [facility] (Prevnar 13) Branch Meningococcal B, [facility] 2016-03-07 Completed [facility] ersity of 00:00:00 [facility] Pneumococcal 13 2016-03-07 Completed [facility] y of Conjugate, PCV13 00:00:00 [place] [facility] (Prevnar 13) Branch Meningococcal B, [facility] 2016-03-07 Completed [facility] ersity of 00:00:00 [facility] Pneumococcal 13 2016-03-07 Completed [facility] y of Conjugate, PCV13 00:00:00 [place] [facility] (Prevnar 13) Branch Meningococcal B, [facility] 2016-03-07 Completed [facility] ersity of 00:00:00 [facility] Pneumococcal 13 2016-03-07 Completed [facility] y of Conjugate, PCV13 00:00:00 [place] [facility] (Prevnar 13) Branch Meningococcal B, V 2016-03-07 Completed [facility] ersity of 00:00:00 [facility] Pneumococcal 13 2016-03-07 Completed [facility] y of Conjugate, PCV13 00:00:00 [place] [facility] (Prevnar 13) Branch Meningococcal B, [facility] 2016-03-07 Completed [facility] ersity of 00:00:00 [facility] Pneumococcal 13 2016-03-07 Completed [facility] y of Conjugate, PCV13 00:00:00 [place] [facility] (Prevnar 13) Branch Meningococcal B, [facility] 2016-03-07 Completed [facility] ersity of 00:00:00 [facility] Pneumococcal 13 2016-03-07 Completed [facility] y of Conjugate, PCV13 00:00:00 [place] [facility] (Prevnar 13) Branch Meningococcal B, [facility] 2016-03-07 Completed [facility] ersity of 00:00:00 [facility] Pneumococcal 13 2016-03-07 Completed [facility] y of Conjugate, PCV13 00:00:00 [place] [facility] (Prevnar 13) Branch Meningococcal B, [facility] 2016-03-07 Completed [facility] ersity of 00:00:00 [facility] Pneumococcal 13 2016-03-07 Completed [facility] y of Conjugate, PCV13 00:00:00 [place] [facility] (Prevnar 13) Branch Meningococcal B, [facility] 2016-03-07 Completed [facility] ersity of 00:00:00 [facility] Pneumococcal 13 2016-03-07 Completed [facility] y of Conjugate, PCV13 00:00:00 [place] [facility] (Prevnar 13) Branch Meningococcal B, [facility] 2016-03-07 Completed [facility] ers[facility] of 00:00:00 [facility] Pneumococcal 13 2016-03-07 Completed [facility] y of Conjugate, PCV13 00:00:00 [place] [facility] (Prevnar 13) Branch Meningococcal B, [facility] 2016-03-07 Completed [facility] ers[facility] of 00:00:00 [facility] Pneumococcal 13 2016-03-07 Completed [facility] of Conjugate, PCV13 00:00:00 [place] [facility] (Prevnar 13) Branch Meningococcal B, [facility] 2016-03-07 Completed [facility] ers[facility] of 00:00:00 [facility] Pneumococcal 13 2016-03-07 Completed [facility] of Conjugate, PCV13 00:00:00 [place] [facility] (Prevnar 13) Branch Meningococcal B, [facility] 2016-03-07 Completed [facility] ersity of 00:00:00 [facility] Pneumococcal 13 2016-03-07 Completed [facility] y of Conjugate, PCV13 00:00:00 [place] [facility] (Prevnar 13) Branch Meningococcal B, [facility] 2016-03-07 Completed [facility] ersity of 00:00:00 [facility] Pneumococcal 13 2016-03-07 Completed [facility] y of Conjugate, PCV13 00:00:00 [place] [facility] (Prevnar 13) Branch Meningococcal B, [facility] 2016-03-07 Completed [facility] ersity of 00:00:00 [facility] Pneumococcal 13 2016-03-07 Completed [facility] y of Conjugate, PCV13 00:00:00 [place] [facility] (Prevnar 13) Branch Meningococcal B, [facility] 2016-03-07 Completed [facility] ersity of 00:00:00 [facility] Pneumococcal 13 2016-03-07 Completed [facility] y of Conjugate, PCV13 00:00:00 [place] [facility] (Prevnar 13) Branch Meningococcal B, [facility] 2016-03-07 Completed [facility] ers[facility] of 00:00:00 [facility] Pneumococcal 13 2016-03-07 Completed [facility] of Conjugate, PCV13 00:00:00 [place] [facility] (Prevnar 13) Branch Meningococcal B, [facility] 2016-03-07 Completed [facility] ers[facility] of 00:00:00 [facility] Pneumococcal 13 2016-03-07 Completed [facility] of Conjugate, PCV13 00:00:00 [place] [facility] (Prevnar 13) Branch Meningococcal B, [facility] 2016-03-07 Completed [facility] ers[facility] of 00:00:00 [facility] Pneumococcal 13 2016-03-07 Completed [facility] y of Conjugate, PCV13 00:00:00 [place] [facility] (Prevnar 13) Branch Meningococcal B, [facility] 2016-03-07 Completed [facility] ers[facility] of 00:00:00 [facility] Pneumococcal 13 2016-03-07 Completed [facility] of Conjugate, PCV13 00:00:00 [place] [facility] (Prevnar 13) Branch Meningococcal B, [facility] 2016-03-07 Completed Univ ersity of 00:00:00 [facility] Pneumococcal 13 2016-03-07 Completed Universit y of Conjugate, PCV13 00:00:00 [place] [facility] (Prevnar 13) Branch Meningococcal B, [facility] 2016-03-07 Completed Univ ersity of 00:00:00 [facility] Pneumococcal 13 2016-03-07 Completed Universit y of Conjugate, PCV13 00:00:00 [place] [facility] (Prevnar 13) Branch Meningococcal B, [facility] 2016-03-07 Completed Univ ersity of 00:00:00 [facility] Pneumococcal 13 2016-03-07 Completed Universit y of Conjugate, PCV13 00:00:00 [place] [facility] (Prevnar 13) Branch Meningococcal B, [facility] 2016-03-07 Completed Univ ersity of 00:00:00 [facility] Pneumococcal 13 2016-03-07 Completed Universit y of Conjugate, PCV13 00:00:00 [place] [facility] (Prevnar 13) Branch Meningococcal B, [facility] 2016-03-07 Completed Univ ersity of 00:00:00 [facility] Pneumococcal 13 2016-03-07 Completed Universit y of Conjugate, PCV13 00:00:00 [place] [facility] (Prevnar 13) Branch Meningococcal B, [facility] 2016-03-07 Completed Univ ersity of 00:00:00 [facility] Pneumococcal 13 2016-03-07 Completed Universit y of Conjugate, PCV13 00:00:00 [place] [facility] (Prevnar 13) Branch Meningococcal B, [facility] 2016-03-07 Completed Univ ersity of 00:00:00 [facility] Pneumococcal 13 2016-03-07 Completed Universit y of Conjugate, PCV13 00:00:00 [place] [facility] (Prevnar 13) Branch Meningococcal B, [facility] 2016-03-07 Completed Univ ersity of 00:00:00 [facility] Pneumococcal 13 2016-03-07 Completed Universit y of Conjugate, PCV13 00:00:00 [place] [facility] (Prevnar 13) Branch Meningococcal B, [facility] 2016-03-07 Completed Univ ersity of 00:00:00 [facility] Pneumococcal 13 2016-03-07 Completed Universit y of Conjugate, PCV13 00:00:00 [place] [facility] (Prevnar 13) Branch Meningococcal B, [facility] 2016-03-07 Completed Univ ersity of 00:00:00 [facility] Pneumococcal 13 2016-03-07 Completed Universit y of Conjugate, PCV13 00:00:00 [place] [facility] (Prevnar 13) Branch Meningococcal B, V 2016-03-07 Completed Univ ersity of 00:00:00 [facility] Pneumococcal 13 2016-03-07 Completed Universit y of Conjugate, PCV13 00:00:00 [place] [facility] (Prevnar 13) Branch Meningococcal B, V 2016-03-07 Completed Univ ersity of 00:00:00 [facility] Pneumococcal 13 2016-03-07 Completed Universit y of Conjugate, PCV13 00:00:00 [facility] dical (Prevnar 13) Branch Meningococcal B, V 2016-03-07 Completed Univ ersity of 00:00:00 [facility] Pneumococcal 13 2016-03-07 Completed Universit y of Conjugate, PCV13 00:00:00 [place] [facility] (Prevnar 13) Branch Meningococcal B, V 2016-03-07 Completed Univ ersity of 00:00:00 [facility] Pneumococcal 13 2016-03-07 Completed Universit y of Conjugate, PCV13 00:00:00 [facility] dical (Prevnar 13) Branch Meningococcal B, V 2016-03-07 Completed Univ ersity of 00:00:00 [facility] Pneumococcal 13 2016-03-07 Completed Universit y of Conjugate, PCV13 00:00:00 [place] [facility] (Prevnar 13) Branch Meningococcal B, V 2016-03-07 Completed Univ ersity of 00:00:00 [facility] Pneumococcal 13 2016-03-07 Completed Universit y of Conjugate, PCV13 00:00:00 [facility] dical (Prevnar 13) Branch Meningococcal B, V 2016-03-07 Completed Univ ersity of 00:00:00 [facility] Heamophilus Influenza 2015-11-13 Completed Uni versity of B 00:00:00 [facility] Heamophilus Influenza 2015-11-13 Completed Uni versity of B 00:00:00 [facility] Heamophilus Influenza 2015-11-13 Completed Uni versity of B 00:00:00 [facility] Heamophilus Influenza 2015-11-13 Completed Uni versity of B 00:00:00 [facility] Heamophilus Influenza 2015-11-13 Completed Uni versity of B 00:00:00 [facility] Heamophilus Influenza 2015-11-13 Completed Uni versity of B 00:00:00 [place] [facility] Heamophilus Influenza 2015-11-13 Completed Uni versity of B 00:00:00 [facility] Heamophilus Influenza 2015-11-13 Completed Uni versity of B 00:00:00 [facility] Heamophilus Influenza 2015-11-13 Completed Uni versity of B 00:00:00 [facility] Heamophilus Influenza 2015-11-13 Completed Uni versity of B 00:00:00 [facility] Heamophilus Influenza 2015-11-13 Completed Uni versity of B 00:00:00 [facility] Heamophilus Influenza 2015-11-13 Completed Uni versity of B 00:00:00 [facility] Heamophilus Influenza 2015-11-13 Completed Uni versity of B 00:00:00 [facility] Heamophilus Influenza 2015-11-13 Completed Uni versity of B 00:00:00 [facility] Heamophilus Influenza 2015-11-13 Completed Uni versity of B 00:00:00 [facility] Heamophilus Influenza 2015-11-13 Completed Uni versity of B 00:00:00 [facility] Heamophilus Influenza 2015-11-13 Completed Uni versity of B 00:00:00 [facility] Heamophilus Influenza 2015-11-13 Completed Uni versity of B 00:00:00 [facility] Heamophilus Influenza 2015-11-13 Completed Uni versity of B 00:00:00 [facility] Heamophilus Influenza 2015-11-13 Completed Uni versity of B 00:00:00 [facility] Heamophilus Influenza 2015-11-13 Completed Uni versity of B 00:00:00 [facility] Heamophilus Influenza 2015-11-13 Completed Uni versity of B 00:00:00 [facility] Heamophilus Influenza 2015-11-13 Completed Uni versity of B 00:00:00 [facility] Heamophilus Influenza 2015-11-13 Completed Uni versity of B 00:00:00 [facility] Heamophilus Influenza 2015-11-13 Completed Uni versity of B 00:00:00 [facility] Heamophilus Influenza 2015-11-13 Completed Uni versity of B 00:00:00 [facility] Heamophilus Influenza 2015-11-13 Completed Uni versity of B 00:00:00 [facility] Heamophilus Influenza 2015-11-13 Completed Uni versity of B 00:00:00 [facility] Heamophilus Influenza 2015-11-13 Completed Uni versity of B 00:00:00 [facility] Heamophilus Influenza 2015-11-13 Completed Uni versity of B 00:00:00 [facility] Heamophilus Influenza 2015-11-13 Completed Uni versity of B 00:00:00 [facility] Heamophilus Influenza 2015-11-13 Completed Uni versity of B 00:00:00 [facility] Heamophilus Influenza 2015-11-13 Completed Uni versity of B 00:00:00 [facility] Heamophilus Influenza 2015-11-13 Completed Uni versity of B 00:00:00 [facility] Heamophilus Influenza 2015-11-13 Completed Uni versity of B 00:00:00 [facility] Heamophilus Influenza 2015-11-13 Completed Uni versity of B 00:00:00 [facility] Heamophilus Influenza 2015-11-13 Completed Uni versity of B 00:00:00 [facility] Heamophilus Influenza 2015-11-13 Completed Uni versity of B 00:00:00 [facility] Heamophilus Influenza 2015-11-13 Completed Uni versity of B 00:00:00 [facility] Heamophilus Influenza 2015-11-13 Completed Uni versity of B 00:00:00 [facility] Heamophilus Influenza 2015-11-13 Completed Uni versity of B 00:00:00 [facility] Heamophilus Influenza 2015-11-13 Completed Uni versity of B 00:00:00 [facility] Heamophilus Influenza 2015-11-13 Completed Uni versity of B 00:00:00 [facility] Heamophilus Influenza 2015-11-13 Completed Uni versity of B 00:00:00 [facility] Heamophilus Influenza 2015-11-13 Completed Uni versity of B 00:00:00 [facility] Heamophilus Influenza 2015-11-13 Completed Uni versity of B 00:00:00 [facility] Heamophilus Influenza 2015-11-13 Completed Uni versity of B 00:00:00 [facility] Heamophilus Influenza 2015-11-13 Completed Uni versity of B 00:00:00 [facility] Heamophilus Influenza 2015-11-13 Completed Uni versity of B 00:00:00 [facility] Heamophilus Influenza 2015-11-13 Completed Uni versity of B 00:00:00 [facility] Heamophilus Influenza 2015-11-13 Completed Uni versity of B 00:00:00 [facility] Heamophilus Influenza 2015-11-13 Completed Uni versity of B 00:00:00 [facility] Heamophilus Influenza 2015-11-13 Completed Uni versity of B 00:00:00 [facility] Heamophilus Influenza 2015-11-13 Completed Uni versity of B 00:00:00 [facility] Heamophilus Influenza 2015-11-13 Completed Uni versity of B 00:00:00 [facility] Heamophilus Influenza 2015-11-13 Completed Uni versity of B 00:00:00 [facility] Heamophilus Influenza 2015-11-13 Completed Uni versity of B 00:00:00 [facility] Heamophilus Influenza 2015-11-13 Completed Uni versity of B 00:00:00 [facility] Heamophilus Influenza 2015-11-13 Completed Uni versity of B 00:00:00 [facility] Heamophilus Influenza 2015-11-13 Completed Uni versity of B 00:00:00 [facility] Heamophilus Influenza 2015-11-13 Completed Uni versity of B 00:00:00 [facility] Heamophilus Influenza 2015-11-13 Completed Uni versity of B 00:00:00 [facility] Heamophilus Influenza 2015-11-13 Completed Uni versity of B 00:00:00 [facility] Heamophilus Influenza 2015-11-13 Completed Uni versity of B 00:00:00 [facility] Heamophilus Influenza 2015-11-13 Completed Uni versity of B 00:00:00 [facility] Heamophilus Influenza 2015-11-13 Completed Uni versity of B 00:00:00 [facility] Heamophilus Influenza 2015-11-13 Completed Uni versity of B 00:00:00 [facility] Heamophilus Influenza 2015-11-13 Completed Uni versity of B 00:00:00 [facility] Heamophilus Influenza 2015-11-13 Completed Uni versity of B 00:00:00 [facility] Heamophilus Influenza 2015-11-13 Completed Uni versity of B 00:00:00 [facility] Heamophilus Influenza 2015-11-13 Completed Uni versity of B 00:00:00 [facility] Heamophilus Influenza 2015-11-13 Completed Uni versity of B 00:00:00 [facility] Heamophilus Influenza 2015-11-13 Completed Uni versity of B 00:00:00 [facility] Heamophilus Influenza 2015-11-13 Completed Uni versity of B 00:00:00 [facility] Heamophilus Influenza 2015-11-13 Completed Uni versity of B 00:00:00 [facility] Heamophilus Influenza 2015-11-13 Completed Uni versity of B 00:00:00 [facility] Heamophilus Influenza 2015-11-13 Completed Uni versity of B 00:00:00 [facility] Heamophilus Influenza 2015-11-13 Completed Uni versity of B 00:00:00 [facility] Heamophilus Influenza 2015-11-13 Completed Uni versity of B 00:00:00 [facility] Heamophilus Influenza 2015-11-13 Completed Uni versity of B 00:00:00 [facility] Heamophilus Influenza 2015-11-13 Completed Uni versity of B 00:00:00 [facility] Heamophilus Influenza 2015-11-13 Completed Uni versity of B 00:00:00 [facility] Heamophilus Influenza 2015-11-13 Completed Uni versity of B 00:00:00 [facility] Heamophilus Influenza 2015-11-13 Completed Uni versity of B 00:00:00 [facility] Heamophilus Influenza 2015-11-13 Completed Uni versity of B 00:00:00 [facility] Heamophilus Influenza 2015-11-13 Completed Uni versity of B 00:00:00 [facility] Heamophilus Influenza 2015-11-13 Completed Uni versity of B 00:00:00 [facility] Heamophilus Influenza 2015-11-13 Completed Uni versity of B 00:00:00 [facility] Heamophilus Influenza 2015-11-13 Completed Uni versity of B 00:00:00 [facility] Heamophilus Influenza 2015-11-13 Completed Uni versity of B 00:00:00 [facility] Heamophilus Influenza 2015-11-13 Completed Uni versity of B 00:00:00 [facility] Heamophilus Influenza 2015-11-13 Completed Uni versity of B 00:00:00 [facility] Meningococcal 2015-11-12 Completed University of Polysaccharide [...] Meningococcal 2015-11-12 Completed University of Polysaccharide 00:00:00 [place] [facility] (groups A, C, Y and Branc h W-135) conjugate vaccine (MCV4P) Meningococcal 2015-11-12 Completed University of Polysaccharide 00:00:00 [place] [facility] (groups A, C, Y and Branc h W-135) conjugate vaccine (MCV4P) TDAP 2015-10-31 Completed University of 00:00:00 [facility] TDAP 2015-10-31 Completed University of 00:00:00 [facility] TDAP 2015-10-31 Completed University of 00:00:00 [facility] TDAP 2015-10-31 Completed University of 00:00:00 [facility] TDAP 2015-10-31 Completed University of 00:00:00 [facility] TDAP 2015-10-31 Completed University of 00:00:00 [facility] TDAP 2015-10-31 Completed University of 00:00:00 [facility] TDAP 2015-10-31 Completed University of 00:00:00 [facility] TDAP 2015-10-31 Completed University of 00:00:00 [facility] TDAP 2015-10-31 Completed University of 00:00:00 [facility] TDAP 2015-10-31 Completed University of 00:00:00 [facility] TDAP 2015-10-31 Completed University of 00:00:00 [facility] TDAP 2015-10-31 Completed University of 00:00:00 [facility] TDAP 2015-10-31 Completed University of 00:00:00 [facility] TDAP 2015-10-31 Completed University of 00:00:00 [facility] TDAP 2015-10-31 Completed University of 00:00:00 [facility] TDAP 2015-10-31 Completed University of 00:00:00 [facility] TDAP 2015-10-31 Completed University of 00:00:00 [facility] TDAP 2015-10-31 Completed University of 00:00:00 [facility] TDAP 2015-10-31 Completed University of 00:00:00 [facility] TDAP 2015-10-31 Completed University of 00:00:00 [facility] TDAP 2015-10-31 Completed University of 00:00:00 [facility] TDAP 2015-10-31 Completed University of 00:00:00 [facility] TDAP 2015-10-31 Completed University of 00:00:00 [facility] TDAP 2015-10-31 Completed University of 00:00:00 [facility] TDAP 2015-10-31 Completed University of 00:00:00 [facility] TDAP 2015-10-31 Completed University of 00:00:00 [facility] TDAP 2015-10-31 Completed University of 00:00:00 [facility] TDAP 2015-10-31 Completed University of 00:00:00 [facility] TDAP 2015-10-31 Completed University of 00:00:00 [facility] TDAP 2015-10-31 Completed University of 00:00:00 [facility] TDAP 2015-10-31 Completed University of 00:00:00 [facility] TDAP 2015-10-31 Completed University of 00:00:00 [facility] TDAP 2015-10-31 Completed University of 00:00:00 [facility] TDAP 2015-10-31 Completed University of 00:00:00 [facility] TDAP 2015-10-31 Completed University of 00:00:00 [facility] TDAP 2015-10-31 Completed University of 00:00:00 [facility] TDAP 2015-10-31 Completed University of 00:00:00 [facility] TDAP 2015-10-31 Completed University of 00:00:00 [facility] TDAP 2015-10-31 Completed University of 00:00:00 [facility] TDAP 2015-10-31 Completed University of 00:00:00 [facility] TDAP 2015-10-31 Completed University of 00:00:00 [facility] TDAP 2015-10-31 Completed University of 00:00:00 [facility] TDAP 2015-10-31 Completed University of 00:00:00 [facility] TDAP 2015-10-31 Completed University of 00:00:00 [facility] TDAP 2015-10-31 Completed University of 00:00:00 [facility] TDAP 2015-10-31 Completed University of 00:00:00 [facility] TDAP 2015-10-31 Completed University of 00:00:00 [facility] TDAP 2015-10-31 Completed University of 00:00:00 [facility] TDAP 2015-10-31 Completed University of 00:00:00 [facility] TDAP 2015-10-31 Completed University of 00:00:00 [facility] TDAP 2015-10-31 Completed University of 00:00:00 [facility] TDAP 2015-10-31 Completed University of 00:00:00 [facility] TDAP 2015-10-31 Completed University of 00:00:00 [facility] TDAP 2015-10-31 Completed University of 00:00:00 [facility] TDAP 2015-10-31 Completed University of 00:00:00 [facility] TDAP 2015-10-31 Completed University of 00:00:00 [facility] TDAP 2015-10-31 Completed University of 00:00:00 [facility] TDAP 2015-10-31 Completed University of 00:00:00 [facility] TDAP 2015-10-31 Completed University of 00:00:00 [facility] TDAP 2015-10-31 Completed University of 00:00:00 [facility] TDAP 2015-10-31 Completed University of 00:00:00 [facility] TDAP 2015-10-31 Completed University of 00:00:00 [facility] TDAP 2015-10-31 Completed University of 00:00:00 [facility] TDAP 2015-10-31 Completed University of 00:00:00 [facility] TDAP 2015-10-31 Completed University of 00:00:00 [facility] TDAP 2015-10-31 Completed University of 00:00:00 [facility] TDAP 2015-10-31 Completed University of 00:00:00 [facility] TDAP 2015-10-31 Completed University of 00:00:00 [facility] TDAP 2015-10-31 Completed University of 00:00:00 [facility] TDAP 2015-10-31 Completed University of 00:00:00 [facility] TDAP 2015-10-31 Completed University of 00:00:00 [facility] TDAP 2015-10-31 Completed University of 00:00:00 [facility] TDAP 2015-10-31 Completed University of 00:00:00 [facility] TDAP 2015-10-31 Completed University of 00:00:00 [facility] TDAP 2015-10-31 Completed University of 00:00:00 [facility] TDAP 2015-10-31 Completed University of 00:00:00 [facility] TDAP 2015-10-31 Completed University of 00:00:00 [facility] TDAP 2015-10-31 Completed University of 00:00:00 [facility] TDAP 2015-10-31 Completed University of 00:00:00 [facility] TDAP 2015-10-31 Completed University of 00:00:00 [facility] TDAP 2015-10-31 Completed University of 00:00:00 [facility] TDAP 2015-10-31 Completed University of 00:00:00 [facility] TDAP 2015-10-31 Completed University of 00:00:00 [facility] TDAP 2015-10-31 Completed University of 00:00:00 [facility] TDAP 2015-10-31 Completed University of 00:00:00 [facility] TDAP 2015-10-31 Completed University of 00:00:00 [facility] TDAP 2015-10-31 Completed University of 00:00:00 [facility] TDAP 2015-10-31 Completed University of 00:00:00 [facility] TDAP 2015-10-31 Completed University of 00:00:00 [facility] TDAP 2015-10-31 Completed University of 00:00:00 [facility] TDAP 2015-10-31 Completed University of 00:00:00 [facility] Pneumococcal 2014-04-01 Completed University o f Polysaccharide, 00:00:00 [place] [facility] PPSV23 (PNEUMOVAX) Branch Pneumococcal 2014-04-01 Completed University o f Polysaccharide, 00:00:00 [place] [facility] PPSV23 (PNEUMOVAX) Branch Pneumococcal 2014-04-01 Completed University o f Polysaccharide, 00:00:00 [place] [facility] PPSV23 (PNEUMOVAX) Branch Pneumococcal 2014-04-01 Completed University o f Polysaccharide, 00:00:00 [place] [facility] PPSV23 (PNEUMOVAX) Branch Pneumococcal 2014-04-01 Completed University o f Polysaccharide, 00:00:00 [place] [facility] PPSV23 (PNEUMOVAX) Branch Pneumococcal 2014-04-01 Completed University o f Polysaccharide, 00:00:00 [place] [facility] PPSV23 (PNEUMOVAX) Branch Pneumococcal 2014-04-01 [...] Name Observation Time Observation Value Comments Source Heart rate 2022-10-29 21:30:00 91 /min [facility] Respiratory rate 2022-10-29 21:30:00 14 /min [facility] Oxygen saturation in 2022-10-29 21:30:00 98 /min [facility] Arterial blood by [facility] Pulse oximetry Branch Systolic blood 2022-10-29 20:21:00 125 mm[Hg] Univer sity of pressure [facility] Diastolic blood 2022-10-29 20:21:00 79 mm[Hg] Unive rsity of pressure [facility] Body temperature 2022-10-29 20:21:00 36.89 Melissa [facility] 2022-10-29 20:21:00 157.5 cm [facility] Body weight 2022-10-29 20:21:00 94.348 kg [facility] BMI 2022-10-29 20:21:00 38.04 kg/m2 [facility] Systolic blood 2022-10-27 15:21:00 91 mm[Hg] Univer sity of pressure [facility] Diastolic blood 2022-10-27 15:21:00 58 mm[Hg] Unive rsity of pressure [facility] Heart rate 2022-10-27 15:21:00 82 /min [facility] Body height 2022-10-27 15:21:00 157.5 cm [facility] Body weight 2022-10-27 15:21:00 94.394 kg [facility] BMI 2022-10-27 15:21:00 38.06 kg/m2 [facility] Oxygen saturation in 2022-10-27 15:21:00 95 /min University of Arterial blood by [employer] Pulse oximetry Branch HEIGHT 2022-10-22 05:49:00 157.5 cm WEIGHT 2022-10-22 05:49:00 96.48 kg HEIGHT 2022-10-22 05:49:00 157.5 cm WEIGHT 2022-10-22 05:49:00 96.48 kg HEIGHT 2022-10-22 05:49:00 157.5 cm WEIGHT 2022-10-22 05:49:00 96.48 kg Systolic blood 2022-10-19 21:30:00 148 mm[Hg] Univer sity of pressure [facility] Diastolic blood 2022-10-19 21:30:00 89 mm[Hg] Unive rsity of pressure [facility] Heart rate 2022-10-19 21:30:00 115 /min [facility] Body temperature 2022-10-19 21:30:00 37.17 Melissa [facility] ers[facility] Respiratory rate 2022-10-19 21:30:00 16 /min Univ ersity of [facility] Oxygen saturation in 2022-10-19 21:30:00 97 /min [facility] Arterial blood by [employer] Pulse oximetry [place] Body height 2022-10-19 04:03:00 172.7 cm [facility] Body weight 2022-10-19 04:03:00 98.884 kg [facility] BMI 2022-10-19 04:03:00 33.15 kg/m2 [facility] Systolic blood 2022-10-18 16:13:00 102 mm[Hg] Univer sity of pressure [facility] Diastolic blood 2022-10-18 16:13:00 69 mm[Hg] Unive rsity of pressure [facility] Heart rate 2022-10-18 16:13:00 82 /min [facility] Body height 2022-10-18 16:13:00 157.5 cm [facility] Body weight 2022-10-18 16:13:00 98.884 kg [facility] BMI 2022-10-18 16:13:00 39.87 kg/m2 [facility] Oxygen saturation in 2022-10-18 16:13:00 99 /min [facility] Arterial blood by [facility] cipriano Pulse oximetry Branch Systolic blood 2022-10-07 19:00:00 125 mm[Hg] Univer sity of pressure [facility] Diastolic blood 2022-10-07 19:00:00 78 mm[Hg] Unive rsity of pressure [facility] Heart rate 2022-10-07 19:00:00 85 /min [facility] Respiratory rate 2022-10-07 19:00:00 18 /min Univ [facility] Oxygen saturation in 2022-10-07 19:00:00 100 /min [facility] Arterial blood by [facility] Pulse oximetry Branch Body temperature 2022-10-07 17:09:00 37.28 Melissa [facility] Body height 2022-10-07 17:09:00 157.5 cm [facility] Body weight 2022-10-07 17:09:00 102.059 kg [facility] BMI 2022-10-07 17:09:00 41.15 kg/m2 [facility] Systolic blood 2022-10-07 14:03:00 119 mm[Hg] [facility] Diastolic blood 2022-10-07 14:03:00 81 mm[Hg] Unive rs[facility] of [facility] Heart rate 2022-10-07 14:03:00 104 /min [facility] Body temperature 2022-10-07 14:03:00 36.28 Melissa [facility] Body height 2022-10-07 14:03:00 157.5 cm [facility] Body weight 2022-10-07 14:03:00 102.377 kg [facility] BMI 2022-10-07 14:03:00 41.28 kg/m2 [facility] Oxygen saturation in 2022-10-07 14:03:00 100 /min [facility]ial blood by [facility] cipriano Pulse oximetry Branch Systolic blood 2022-09-03 17:29:00 97 mm[Hg] Univer [facility] pressure [facility] Diastolic blood 2022-09-03 17:29:00 64 mm[Hg] Unive rsity of pressure [facility] Heart rate 2022-09-03 17:29:00 95 /min [facility] Body temperature 2022-09-03 17:29:00 37.17 Melissa [facility] Body height 2022-09-03 17:29:00 157.5 cm [facility] Body weight 2022-09-03 17:29:00 101.606 kg [facility] BMI 2022-09-03 17:29:00 40.97 kg/m2 [facility] Oxygen saturation in 2022-09-03 17:29:00 96 /min [facility] Arterial blood by [facility] Pulse oximetry Branch Systolic blood 2022-08-24 14:41:00 115 mm[Hg] Univer sity of pressure [facility] Diastolic blood 2022-08-24 14:41:00 77 mm[Hg] Unive rsity of pressure [facility] Heart rate 2022-08-24 14:41:00 105 /min [facility] Body temperature 2022-08-24 14:41:00 36.61 Melissa [facility] Body weight 2022-08-24 14:41:00 102.967 kg [facility] BMI 2022-08-24 14:41:00 41.52 kg/m2 [facility] Systolic blood 2022-07-27 13:03:00 112 mm[Hg] [facility] Diastolic blood 2022-07-27 13:03:00 75 mm[Hg] Unive rsity of pressure [facility] Heart rate 2022-07-27 13:03:00 98 /min [facility] Body temperature 2022-07-27 13:03:00 36.83 Melissa [facility] Body weight 2022-07-27 13:03:00 102.967 kg [facility] BMI 2022-07-27 13:03:00 41.52 kg/m2 [facility] Oxygen saturation in 2022-07-27 13:03:00 94 /min [facility] [place] [facility] Pulse oxim[facility] Systolic blood 2022-06-17 15:45:00 104 mm[Hg] Univer [facility]ity [facility] pressure [facility] Diastolic blood 2022-06-17 15:45:00 69 mm[Hg] Unive rsity of pressure [facility] Heart rate 2022-06-17 15:45:00 97 /min [facility] Body height 2022-06-17 15:45:00 157.5 cm [facility] Body weight 2022-06-17 15:45:00 101.878 kg [facility] BMI 2022-06-17 15:45:00 41.08 kg/m2 [facility] Oxygen saturation in 2022-06-17 15:45:00 98 /min [facility] Pulse oxim[facility] Systolic blood 2022-06-15 13:01:00 101 mm[Hg] Univer [facility]ity [facility] Diastolic blood 2022-06-15 13:01:00 68 mm[Hg] Unive rsity of pressure [facility] Heart rate 2022-06-15 13:01:00 74 /min [facility] Body temperature 2022-06-15 13:01:00 36.89 Melissa [facility] Body weight 2022-06-15 13:01:00 102.967 kg [facility] BMI 2022-06-15 13:01:00 41.52 kg/m2 [facility] Systolic blood 2022-03-27 12:44:00 131 mm[Hg] Univer [facility] Diastolic blood 2022-03-27 12:44:00 83 mm[Hg] Unive rsity of pressure [facility] Heart rate 2022-03-27 12:44:00 102 /min [facility] Body temperature 2022-03-27 12:44:00 37.11 Melissa [facility] Respiratory rate 2022-03-27 12:44:00 18 /min [facility] Body height 2022-03-27 12:44:00 157.5 cm [facility] Body weight 2022-03-27 12:44:00 96.616 kg [facility] BMI 2022-03-27 12:44:00 38.96 kg/m2 [facility] Oxygen saturation in 2022-03-27 12:44:00 98 /min [facility] Ar[facility]ial blood by [facility] Pulse oximetry Branch Systolic blood 2022-03-02 15:40:00 113 mm[Hg] Univer [facility]ity [facility] pressure [facility] Diastolic blood 2022-03-02 15:40:00 72 mm[Hg] Unive rsity of pressure [facility] Heart rate 2022-03-02 15:40:00 82 /min [facility] Respiratory rate 2022-03-02 15:40:00 16 /min [facility] Oxygen saturation in 2022-03-02 15:40:00 97 /min [facility]ial blood by [facility] Pulse oximetry Branch Body temperature 2022-03-02 15:23:00 36.28 Melissa [facility] Body weight 2022-02-24 17:00:00 100.245 kg [facility] BMI 2022-02-24 17:00:00 40.42 kg/m2 [facility] Systolic blood 2022-03-02 15:25:00 98 mm[Hg] Univer [facility] Diastolic blood 2022-03-02 15:25:00 55 mm[Hg] Unive rsity of pressure [facility] Heart rate 2022-03-02 15:25:00 85 /min [facility] Respiratory rate 2022-03-02 15:25:00 18 /min [facility] Oxygen saturation in 2022-03-02 15:25:00 100 /min [facility] Arterial blood by [facility] Pulse oximetry Branch Body temperature 2022-03-02 15:23:00 36.28 Melissa [facility] Body weight 2022-02-24 17:00:00 100.245 kg [facility] BMI 2022-02-24 17:00:00 40.42 kg/m2 [facility] Systolic blood 2022-10-25 10:57:00 120 mm[Hg] [facility] Diastolic blood 2022-10-25 10:57:00 63 mm[Hg] [facility] Heart rate 2022-10-25 10:57:00 92 /min [facility] Body temperature 2022-10-25 10:57:00 35.61 Melissa [facility] Respiratory rate 2022-10-25 10:57:00 18 /min [facility] Oxygen saturation in 2022-10-25 10:57:00 100 /min [facility] Arterial blood by Medical nter Pulse oximetry Body height 2022-10-22 05:49:[address] [facility] Body weight 2022-10-22 05:49:[address] [facility] BMI 2022-10-22 05:49:00 38.90 kg/m2 [facility] Procedures Procedure Date / Time Performing Source Performed Clinician HB ABO GROUPING 2022-10-29 Shena Perea [place] of 20:53:00 [facility] COMP. METABOLIC PANEL ([id number]) 2022-10-29 Shena Perea [facility] of 20:52:00 [facility] CBC WITH DIFF 2022-10-29 Shena Perea [place] of 20:52:00 [facility] CONSENT/REFUSAL FOR DIAGNOSIS AND 2022-10-29 [facility] 20:01:41 Unassigned, No [facility] BASIC METABOLIC PANEL$W/EGFR-Q 2022-10-27 Osmar Araujo U niversity of 16:36:00 [facility] POCT-GLUCOSE METER 2022-10-25 Ali, Hiba Tereso [facility] 11:05:00 [facility] POCT-GLUCOSE METER 2022-10-25 Ali, Hiba Tereso [facility] 07:47:00 [facility] BASIC METABOLIC PANEL 2022-10-25 Nalam, Livia Beth [facility] 03:35:00 [facility] MAGNESIUM 2022-10-25 Nalam, Livia Beht [facility] 03:35:00 [facility] CBC W/PLT COUNT & AUTO 2022-10-25 Nalam, Livia Beth [facility] DIFFERENTIAL 03:35:00 [facility] RETICULOCYTE COUNT 2022-10-25 Eziokwu[facility]olisa [facility] 03:35:00 [facility] LACTATE DEHYDROGENASE (LDH) 2022-10-25 Eziokwu, [facility]olisa [facility] 03:35:00 [facility] HAPTOGLOBIN 2022-10-25 Nalam, Livia Beth [facility] 03:35:00 [facility] HEPATIC FUNCTION PANEL 2022-10-25 Nalam, Livia Beth [facility] 03:35:00 [facility] CBC W/PLT COUNT & AUTO 2022-10-25 Nalam, Livia Beth [facility] DIFFERENTIAL 03:35:00 [facility] POCT-GLUCOSE METER 2022-10-24 Ali, Hiba Tereso [facility] 23:11:00 [facility] POCT-GLUCOSE METER 2022-10-24 Ali, Hiba Tereso [facility] 17:33:00 [facility] POCT-GLUCOSE METER 2022-10-24 Ali, Hiba Tereso [facility] 11:39:00 [facility] POCT-GLUCOSE METER 2022-10-24 Ali, Hiba Tereso [facility] 07:36:00 [facility] BASIC METABOLIC PANEL 2022-10-24 Nalam, Livai Beth [facility] 03:12:00 [facility] MAGNESIUM 2022-10-24 Nalam, Livia Beth [facility] 03:12:00 [facility] CBC W/PLT COUNT & AUTO 2022-10-24 Nalam, Livia Beth [facility] DIFFERENTIAL 03:12:00 [facility] RETICULOCYTE COUNT 2022-10-24 Eziokwu, Akaolisa [facility] 03:12:00 [facility] LACTATE DEHYDROGENASE (LDH) 2022-10-24 Eziokwu, [facility]olisa [facility] 03:12:00 [facility] C-REACTIVE PROTEIN 2022-10-24 Nalam, Livia Beth [facility] 03:12:00 [facility] HAPTOGLOBIN 2022-10-24 Nalam, Livia Beth [facility] 03:12:00 [facility] HEPATIC FUNCTION PANEL 2022-10-24 Nalam, Livia Beth [facility] 03:12:00 [facility] CBC W/PLT COUNT & AUTO 2022-10-24 Nalam, Livia Beth [facility] DIFFERENTIAL 03:12:00 [facility] POCT-GLUCOSE METER 2022-10-23 Ali, Hiba Tereso [facility] 21:50:00 [facility] POCT-GLUCOSE METER 2022-10-23 Ali, Hiba Tereso [facility] 17:24:00 [facility] ANTIBODY IDENTIFICATION 2022-10-23 Nalam, Livia Beth [facility] 12:29:00 [facility] POCT-GLUCOSE METER 2022-10-23 Ali, Hiba Tereso [facility] 12:20:00 [facility] POCT-GLUCOSE METER 2022-10-23 Ali, Hiba Tereso [facility] 09:26:00 [facility] BASIC METABOLIC PANEL 2022-10-23 Nalam, Livia Beth [facility] 04:28:00 [facility] MAGNESIUM 2022-10-23 Nalam, Livia Beth [facility] 04:28:00 [facility] CBC W/PLT COUNT & AUTO 2022-10-23 Nalam, Livia Beth [facility] DIFFERENTIAL 04:28:00 [facility] RETICULOCYTE COUNT 2022-10-23 Eziokwu, A[facility]olisa [facility] 04:28:00 [facility] LACTATE DEHYDROGENASE (LDH) 2022-10-23 Eziokwu, [facility]olisa [facility] 04:28:00 [facility] C-REACTIVE PROTEIN 2022-10-23 Nalam, Livia Beth [facility] 04:28:00 [facility] FERRITIN 2022-10-23 Nalam, Livia Beth [facility] 04:28:00 [facility] HAPTOGLOBIN 2022-10-23 Nalam, Livia Beth [facility] 04:28:00 [facility] HEPATIC FUNCTION PANEL 2022-10-23 Nalam, Livia Beth [facility] 04:28:00 [facility] HEMOGLOBIN A1C 2022-10-23 Nalam, Livia Beth [facility] 04:28:00 [facility] CBC W/PLT COUNT & AUTO 2022-10-23 Nalam, Livia Beth [facility] DIFFERENTIAL 04:28:00 [facility] ABORH, MANUAL 2022-10-[address] [facility] 02:02:00 [facility] POCT-GLUCOSE METER 2022-10-22 Nalam, Livia Beth [facility] 22:41:00 [facility] XR ABDOMEN/KUB 1 VIEW PORTABLE 2022-10-22 Nalam, Livia Beth [facility] 17:23:00 [facility] D-DIMER 2022-10-22 Nalam, Livia Beth [facility] 16:29:00 [facility] CBC W/PLT COUNT & AUTO 2022-10-22 Nalam, Livia Beth [facility] DIFFERENTIAL 11:33:00 [facility] RETICULOCYTE COUNT 2022-10-22 Nalam, Livia Beth [facility] 11:33:00 [facility] PERIPHERAL BLOOD SMEAR - HOLD ONLY 2022-10-22 Nalam, Livia Beth [facility] 11:33:00 [facility] DIRECT AHG (ARNOLD)/DIRECT SONDRA 2022-10-22 Nalam, Livia Beth [facility] 11:33:00 [facility] TYPE AND SCREEN, AUTOMATED 2022-10-22 Nalam, Livia Beth [facility] 11:33:00 [facility] CBC W/PLT COUNT & AUTO 2022-10-22 Nalam, Livia Beth [facility] DIFFERENTIAL 11:33:00 [facility] COMPREHENSIVE METABOLIC PANEL 2022-10-22 Nalam, Livia Beth [facility] 11:32:00 [facility] MAGNESIUM 2022-10-22 Nalam, Livia Beth [facility] 11:32:00 [facility] LACTATE DEHYDROGENASE (LDH) 2022-10-22 Nalam, Livia Beth [facility] 11:32:00 [facility] BILIRUBIN, DIRECT 2022-10-22 Nalam, Livia Beth [facility] 11:32:00 [facility] IRON, TIBC, % SAT. (WITHOUT 2022-10-22 Nalam, Livia Beth [facility] FERRITIN) 11:32:00 [facility] Center FERRITIN 2022-10-22 Nalam, Livia Beth [facility] 11:32:00 [facility] VITAMIN B12 2022-10-22 Nalam, Ilvia Beth [facility] 11:32:00 [facility] Center HAPTOGLOBIN 2022-10-22 Nalam, Livia Beth [facility] 11:32:00 [facility] Center FIBRINOGEN 2022-10-22 Nalam, Livia Beth [facility] 11:31:00 [facility] Center PT/APTT 2022-10-22 Nalam, Livia Beth [facility] 11:31:00 [facility] EKG-SCANNED 2022-10-22 Provider, Default [facility] COMP. METABOLIC PANEL ([id number]) 2022-10-19 Tina Curtis Un iversity of 11:22:00 [facility] GIARDIA CRYPTOSPORIDIUM AG SCR 2022-10-19 Sade Curtsia U niversity of 05:09:00 [facility] FECAL PATHOGENS BY PCR 2022-10-19 Ever [facility] y of 05:09:[address] [facility] [address] ABDOMEN PELVIS W CONTRAST 2022-10-18 Kemal Myers U niversity of 23:00:00 [facility] POCT TEST 2022-10-18 [facility] of 22:15:00 F [facility] LIPASE 2022-10-18 [facility] of 22:08:00 F [facility] FREE T4 2022-10-18 Ever [facility] of 22:08:00 [facility] THYROID STIMULATING HORMONE 2022-10-18 Veronica Curtiskanya Univ ersity of 22:08:00 [facility] COMP. METABOLIC PANEL ([id number]) 2022-10-18 [facility] of 22:08:00 F [facility] CBC WITH DIFF 2022-10-18 [facility] of 22:08:00 F [facility] URINALYSIS 2022-10-18 [facility] of 22:08:00 F [facility] CONSENT/REFUSAL FOR DIAGNOSIS AND 2022-10-18 [facility] 20:52:07 Unassigned, No [facility] URINE CULTURE 2022-10-18 [facility] 17:46:00 [facility] BASIC METABOLIC PANEL (NA, K, CL, 2022-10-18 [facility] CO2, GLUCOSE, BUN, CREATININE, CA) 17:24:00 [facility] POCT URINALYSIS AUTO 2022-10-18 [facility] 16:15:00 [facility] DISCLOSURE AND CONSENT, MEDICAL 2022-10-18 [facility]3] AND SURGICAL PROCEDURES 06:01:00 Unassigned, No [facility] HOSPITAL ADMISSION 2022-10-18 [facility]3] 06:01:00 Unassigned, No [facility] LACTIC ACID WHOLE BLOOD 2022-10-07 [facility] 18:28:00 [facility] LIPASE 2022-10-07 Destiny Oneill [place] of 18:16:00 [facility] COMP. METABOLIC PANEL ([id number]) 2022-10-07 Destiny Oneill iversity of 18:16:00 [facility] CBC WITH DIFF 2022-10-07 Destiny Oneill [place] of 18:16:00 [facility] URINALYSIS 2022-10-07 Destiny Oneill [place] of 18:16:00 [facility] CONSENT/REFUSAL FOR DIAGNOSIS AND 2022-10-07 [facility] 16:58:17 Unassigned, No [facility] POCT HEMOGLOBIN A1C TEST 2022-08-24 Tray J[facility] ity of 00:00:00 [facility] DME/SUPPLY JUSTIFICATION 2022-08-05 [facility] it of 06:01:00 Unassigned, No [facility] SARS-COV-2 COVID-19 CHRISTELLE-SUCROSE 2022-07-27 Tray Jolly [place] of VACCINE 12 YRS+, BIVALENT 0.3ML, 13:13:29 [facility], (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) Br anch MEDICATION CORRESPONDENCE 2022-07-19 Doctor [facility] sit of 05:01:00 Unassigned, No [facility] DISABILITY/FMLA 2022-07-01 Doctor [place] of 05:01:00 Unassigned, No [facility] MR THORACIC SPINE WO CONTRAST 2022-06-30 Brunilda, Crystal Un [facility]ity of 16:22:01 [facility] MR CERVICAL SPINE WO CONTRAST 2022-06-30 Brunilda, Crystal Un iversity of 16:20:35 [facility] CONSENT/REFUSAL FOR DIAGNOSIS AND 2022-06-30 Doctor [facility] 14:32:21 Unassigned, No [facility] CONSENT/REFUSAL FOR DIAGNOSIS AND 2022-06-30 Doctor [facility] 14:32:20 Unassigned, No [facility] INSURANCE CORRESPONDENCE 2022-06-17 [facility] it of 05:01:00 Unassigned, No [facility] POWER OF AUTOMOTIVE WELDER 2022-06-01 Doctor [place] of 05:01:00 Unassigned, No [facility] POWER OF AUTOMOTIVE WELDER 2022-05-13 Doctor [facility] 05:01:00 Unassigned, No [facility] DME/SUPPLY JUSTIFICATION 2022-05-06 [facility] ity of 05:01:00 Unassigned, No [facility] EMG/NCV 2022-04-08 Brunilda [facility] of 14:43:00 [facility] CONSENT/REFUSAL FOR DIAGNOSIS AND 2022-03-27 Doctor [facility] 12:40:53 Unassigned, No [facility] PHYSICIAN ORDERS 2022-03-19 Doctor [facility] 05:01:00 Unassigned, No [facility] COLONOSCOPY (ENDO) 2022-03-02 Tray Jolly [place] of 14:43:32 [facility] COLONOSCOPY (ENDO) 2022-03-02 Rik [facility] of 14:43:32 [facility] COLONOSCOPY 2022-03-02 Cecile Márquez [place] of 14:02:00 [facility] ESOPHAGOGASTRODUODENOSCOPY 2022-03-02 MárquezJerry callesFormerly [facility] ersity of 14:02:00 [facility] EGD (ENDO) 2022-03-02 Tray Jolly [place] of 13:53:24 [facility] EGD (ENDO) 2022-03-02 JesicabradfordTray [place] of 13:53:24 [facility] POCT GLUCOSE(AGE >30DAYS) 2022-03-02 [facility] ersity of 12:59:00 [facility] POCT GLUCOSE(AGE >30DAYS) 2022-03-02 [facility] ersity of 12:59:00 [facility] POCT GLUCOSE (AUTOMATED) 2022-03-02 [facility] 12:58:00 [facility] POCT GLUCOSE (AUTOMATED) 2022-03-02 [facility] sity of 12:58:00 [facility] POCT TEST 2022-03-02 [facility] of 12:48:00 [facility] POCT TEST 2022-03-02 [facility] of 12:48:00 [facility] DAY SURGERY - ADC 2022-03-02 [facility] of 05:01:00 Unassigned, No [facility] Name Branch DME/SUPPLY JUSTIFICATION 2022-01-04 [facility] ity of 05:01:00 Unassigned, No [facility] Name Branch DME/SUPPLY JUSTIFICATION 2022-01-04 Doctor [facility] ity of 05:01:00 Unassigned, No [facility] Name Branch DISCLOSURE AND CONSENT, MEDICAL 2021-12-28 [facility] of AND SURGICAL PROCEDURES 05:01:00 Unassigned, No [facility] dical Name Branch DISCLOSURE AND CONSENT, [facility] 2021-12-28 [facility] of AND SURGICAL PROCEDURES 05:01:00 Unassigned, No [facility] dical Name Branch Plan of Care Planned Activity Planned Date Details Comments Source Future Scheduled 2032-03-02 Screening for malignant [facility] Test 00:00:00 neoplasm of colon Medical Ce nter (procedure) [code = 720116353] Future Scheduled 2032-03-02 Screening for malignant [facility] Test 00:00:00 neoplasm of colon Medical Ce nter (procedure) [code = 215885369] Future Scheduled 2029-08-10 DTAP/TDAP/TD VACCINES [facility] 00:00:00 (3 - Td or Tdap) [code Medic al Center = DTAP/TDAP/TD VACCINES (3 - Td or Tdap)] Future Scheduled 2023-10-[address] [facility] Test 00:00:00 Counseling and Medical Cente r Screening (12+) [code = Tobacco Cessation Counseling and Screening (12+)] Future Scheduled 2022-09-26 Medicare IPPE (WELCOME [facility] 00:[facility]00 TO MEDICARE) [code = Medical Center Medicare IPPE (WELCOME TO MEDICARE)] Future Scheduled 2018 Lipid panel (procedure) [facility] 00:00:00 [code = 57657209] Medical Ce nter Future Scheduled 1994 Screening for malignant [facility] Test 00:00:00 neoplasm of cervix Medical C enter (procedure) [code = 676643029] Future Scheduled 1991 HEPATITIS C SCREENING [facility] 00:00:00 [code = HEPATITIS C Medical Center SCREENING] Future Scheduled 1973 CT Colonography (combo) [facility] Test 00:00:00 [code = CT Colonography [facility] (combo)] Future Scheduled 1973 Screening for malignant [facility] Test 00:00:00 neoplasm of colon Medical Ce nter (procedure) [code = 147718329] Future Scheduled 1973 Screening for malignant [facility] Test 00:00:00 neoplasm of colon Medical Ce nter (procedure) [code = 500143141] Future Scheduled 1973 Sigmoidoscopy [code = [facility] 00:[facility]:00 Sigm[facility]oscopy] Medical Cente r Encounters Start End Encounter Admission Attending Care Care Encounter Source Date/Time Date/Time Type Type Clinicians Facility Department ID 2022-02-16 Outpatient Brock MÁRQUEZ [facility] MARCUS [id number] Univers 10:29:45 CECILE flores [facility] 2021-12-01 Outpatient Brock MÁRQUEZ WIFRANDY MARCUS [id number] Univers 13:05:09 CECILE flores [facility] 2021-11-04 Outpatient Brock MÁRQUEZ WIFRANDY MARCUS [id number] Univers 15:43:22 CECILE flores [facility] 2021-07-27 Emergency [facility] [id number] Univers 19:11:28 mark [facility] 2021-07-27 Emergency [facility] [id number] Univers 10:12:30 ity of [facility] 2021-07-27 Emergency [facility] [id number] Univers 06:35:13 ity of [facility] 2021-07-27 Emergency [facility] [id number] Univers 04:01:19 ity of [facility] 2021-07-26 Emergency [facility] [id number] Univers 12:06:22 ity of [facility] 2021-07-26 Emergency [facility] [id number] Univers 11:43:46 ity [facility] 2023-02-22 2023-02-22 Outpatient Brock JOLLY [facility] [id number] Univers 09:15:00 09:15:00 TRAY jay [facility] 2022-11-24 2022-11-24 Outpatient Brock JOLLY [facility] [id number] Univers 09:45:00 09:45:00 TRAY jay [facility] 2022-11-01 2022-11-01 Outpatient Brock JOLLY [facility] [id number] Univers 14:30:00 14:30:00 TRAY jay [facility] 2022-10-29 2022-10-29 Emergency [facility] [id number] Univers 14:24:00 16:45:00 SHENA alanjay [facility] 2022-10-29 2022-10-29 Emergency [facility] 1.2.840.114 [id number] Univers 14:24:00 16:45:00 Shena GREGORIO 350.1.13.10 ity of [place] 4.2.7.2.686 [place] [facility] [phone] [address] 2022-10-29 2022-10-29 Telephone [facility] 1.2.431.941 [id number] Univers 00:00:00 00:00:00 [facility] 350.1.13.10 it y of [facility] 4.2.7.2.686 Emanuel as JOLLY?BLEA [id number] [address] MEDICAL OFFICE BUILDING 2022-10-28 2022-10-28 Telephone [facility] 1.2.076.710 [id number] Univers 00:00:00 00:00:00 [facility] 350.1.13.10 it y of [place] 4.2.7.2.686 Emanuel as JOLLY?BLEA [id number] [address] MEDICAL OFFICE BUILDING 2022-10-28 2022-10-28 Patient [facility] 1.2.840.114 [id number] Univers 00:00:00 00:00:00 Outreach Vik Fleming [facility] 350.1.13.10 i ty of [place].2.7.2.686 [place] [facility] [id number] [facility] PRIMARY & [facility] Branch SPECIALTY CARE 2022-10-27 2022-10-27 Outpatient R VAN [facility] [id number] Univers 09:00:00 10:02:31 OSMAR alanjay [facility] 2022-10-27 2022-10-27 Office [facility] 1.2.840.114 [id number] Univers 09:00:00 10:02:31 Visit [facility] 350.1.13.10 it y of [place] 4.2.7.2.686 Emanuel as JOLLY?BLEA [id number] [address] MEDICAL OFFICE BUILDING 2022-10-27 2022-10-27 Orders CLAU Araujo 1.2.840.114 [id number] Univers 00:00:00 00:00:00 Only Osmar GALICIA 350.1.13.10 it y of [facility] 4.2.7.2.686 Emanuel as [id number] [place] [address] [address] 2022-10-26 2022-10-26 Telephone [facility] 1.2.537.481 [id number] Univers 00:00:00 00:00:00 [facility] 350.1.13.10 it y of [place] 4.2.7.2.686 Emanuel as JOLLY?BLEA [id number] [address] MEDICAL OFFICE BUILDING 2022-10-22 2022-10-25 [facility] 1 [id number] [facility] St 05:22:00 14:24:00 Encounter Livia Brady [facility] 2022-10-22 2022-10-25 Inpatient ER PANTERA NAVARRO [facility] Internal [id number] SLE 05:22:00 14:24:00 Med 2022-10-22 2022-10-22 Travel [facility] [id number] [facility] 00:00:00 00:00:00 [facility] 2022-10-21 2022-10-21 Outpatient R WILLI [facility] [id number] Univers 15:45:00 15:45:00 CECILE flores of [facility] 2022-10-21 2022-10-21 Telephone [facility]icabradfordUN[facility] 1.2.840.114 [id number] Univers 00:00:00 00:00:00 [facility] 350.1.13.10 it y of [facility] 4.2.7.2.686 Emanuel as JOLLY?BLEA [phone] Pa dical [facility] [address] [place] MEDICAL OFFICE BUILDING 2022-10-20 2022-10-20 Nurse CLAU Stark 1.2.840.114 [id number] Univers 00:00:00 00:00:00 Triage Kvng GALICIA 350.1.13.10 it y of HOSPITAL 4.2.7.2.686 Emanuel as [phone] [facility] [address] 2022-10-18 2022-10-19 Emergency Kemal Myers 1.2. 840.114 [id number] Univers 15:07:00 17:48:00 Geovanny Willis 350.1.13.10 ity of [facility] 4.2.7.2.686 [place] [id number] [facility] [address] 2022-10-19 2022-10-19 Refill [facility] 1.2.730.024 [id number] Univers 00:00:00 00:00:00 Vern PRIMARY 350.1.13.10 it y of [facility] 4.2.7.2.686 [place] VALERIE [phone] Pa dical [address] 2022-10-18 2022-10-18 Outpatient R ADRYAN [facility] [id number] Univers 11:45:00 13:42:03 BEVERLY boggs f [facility] 2022-10-18 2022-10-18 Rn Pediatric Icu 2, Adc Lab [facility] 1.2.840.114 [id number] Univers 11:45:00 13:42:03 Visit Beverly Cornelius 350.1.13. 10 ity of [place] 4.2.7.2.686 [place] [phone] Pa dical NAL 353 [facility] 2022-10-18 2022-10-18 [facility] [id number] Univers 11:00:00 11:14:47 BEVERLY flores o birdie [facility] 2022-10-18 2022-10-18 Office Cornelius, [facility] 1.2.840.114 [id number] Univers 11:00:00 11:14:47 Visit Beverly GREGORIO 350.1.13.10 ity of [facility] 4.2.7.2.686 [place] [id number] Pa dical NAL 204 [facility] 2022-10-18 2022-10-18 Orders Doctor CLAU 1.2.840.114 [id number] Univers 00:00:00 00:00:00 Only Unassigned, GRAYSON 350.1.13.10 ity of [place] [facility] 4.2.7.2.686 Emanuel as [phone] [address] 2022-10-18 2022-10-18 Telephone [facility] 1.2.840.114 [id number] Univers 00:00:00 00:00:00 [facility] 350.1.13.10 it y of [place] [facility] 4.2.7.2.686 Emanuel as JOLLY?BLEA [phone] Pa dical ARLENEEY 044 [facility] OFFICE [facility] 2022-10-15 2022-10-15 Outpatient R [facility] [id number] Univers 10:45:00 11:31:42 LAYNE ity of [facility] 2022-10-12 2022-10-12 [facility]ill [facility] 1.2.840.114 [id number] Univers 00:00:00 00:00:00 [facility] 350.1.13.10 it y of [place] 4.2.7.2.686 Emanuel as JOLLY?BLEA [id number] [address] OFFICE [facility] 2022-10-07 2022-10-07 Emergency X [facility]ILLUN[facility] ERT [id number] Univers 11:11:00 13:18:00 DESTINY flores [facility] 2022-10-07 2022-10-07 Emergency OneillUN[facility] 1.2.618.210 [id number] Univers 11:11:00 13:18:00 [facility] 350.1.13.10 i ty of [place] 4.2.7.2.686 [place] SARANAC [id number] [address] 2022-10-07 2022-10-07 Office [facility] 1.2.840.114 [id number] Univers 09:45:00 10:00:00 Visit [facility] 350.1.13.10 it y of [place] 4.2.7.2.686 Emanuel as JOLLY?BLEA [phone] [address] OFFICE [facility] 2022-10-07 2022-10-07 Outpatient R [facility] [id number] Univers 09:45:00 08:37:42 OSMAR jay [facility] 2022-10-04 2022-10-04 [facility] 1.2.840.114 [id number] Univers 00:00:00 00:00:00 [facility] 350.1.13.10 it y of [place] 4.2.7.2.686 Emanuel as JOLLY?BLEA [phone] [address] OFFICE [facility] 2022-09-28 2022-09-28 Outpatient R RIK [facility] [id number] Univers 08:00:00 08:00:00 TRAY jay [facility] 2022-09-10 2022-09-10 Susan [facility]UN[facility] 1.2.840.114 [id number] Univers 00:00:00 00:00:00 [facility] 350.1.13.10 it y of [place] 4.2.7.2.686 Emanuel as JOLLY?BLEA [phone] Pa dicroshan [address] OFFICE [facility] 2022-09-08 2022-09-08 Telephone [facility]UN[facility] 1.2.840.114 [id number] Univers 00:00:00 00:00:00 Tray HEALTH 350.1.13.10 it y of [place] 4.2.7.2.686 Emanuel as JOLLY?BLEA [phone] Pa dic[address] OFFICE [facility] 2022-09-08 2022-09-08 Nurse Delilah OLGUIN 1.2.840.114 [id number] Univers 00:00:00 00:00:00 Triage dMelony 350.1.13.10 ity of [facility] 4.2.7.2.686 Emanuel as [id number] [address] 2022-09-06 2022-09-06 Reffranchesca PaulaUNM [facility]IL[facility] 1.2.840.114 [id number] Univers 00:00:00 00:00:00 Wondiful A HEALTH 350.1.13.10 ity of [place] 4.2.7.2.686 Emanuel as JOLLY?BLEA [phone] [address] OFFICE [facility] 2022-09-06 2022-09-06 Reffranchesca MárquezUNM CHILDREN'S [facility] 1.2.452.170 [id number] Univers 00:00:00 00:00:00 Cecile [facility] 350.1.13.10 i ty of [place] 4.2.7.2.686 [place] [id number] Pa gabi [address] 2022-09-03 2022-09-03 Outpatient R MISTY [facility] [id number] Univers 11:30:00 11:48:06 BERRY ity of [facility] 2022-09-03 2022-09-03 Office Misty [facility] 1.2.840.114 [id number] Univers 11:30:00 11:48:06 Visit [facility] 350.1.13.10 it y of [place] 4.2.7.2.686 Emanuel as JOLLY?BLEA [phone] Pa dic[address] OFFICE [facility] 2022-08-24 2022-08-24 Outpatient R RIK [facility] [id number] Univers 09:00:00 09:00:00 TRAY flores [facility] 2022-08-24 2022-08-24 Office KikamichellebradfordUNM CHILDR[facility] 1.2.840.114 [id number] Univers 09:00:00 09:00:00 Visit [facility] 350.1.13.10 it y of [place] 4.2.7.2.686 Emanuel as JOLLY?BLEA [phone] Pa gabi JACO[address] MEDICAL OFFICE [facility] 2022-08-24 2022-08-24 Outpatient R RIK [facility] [id number] Univers 09:00:00 08:53:13 TRAY flores [facility] 2022-08-24 2022-08-24 Reffranchesca PaulaUNM CHILDREN'[facility] 1.2.840.114 [id number] Univers 00:00:00 00:00:00 Wondiful A HEALTH 350.1.13.10 ity of [place] 4.2.7.2.686 Emanuel as JOLLY?BLEA [id number] [facility] [address] OFFICE [facility] 2022-08-22 2022-08-22 Reffranchesca PaulaUNM CHIL[facility] 1.2.840.114 [id number] Univers 00:00:00 00:00:00 Wondiful A HEALTH 350.1.13.10 ity of [place] 4.2.7.2.686 Emanuel as JOLLY?BLEA [phone] Pa gabi JACOBS[address] MEDICAL OFFICE [facility] 2022-08-13 2022-08-13 Outpatient R MARY JANE [facility] [id number] Univers 14:00:00 14:00:00 MATEO mark [facility] 2022-08-06 2022-08-06 Telephone RikUN[facility] 1.2.840.114 [id number] Univers 00:00:00 00:00:00 Tray HEALTH 350.1.13.10 it y of [place] 4.2.7.2.686 Emanuel as JOLLY?BLEA [phone] Pa gabi JACOBS[address] MEDICAL OFFICE [facility] 2022-08-05 2022-08-05 Orders Doctor CLAU 1.2.840.114 [id number] Univers 00:00:00 00:00:00 Only Unassigned, GRAYSON 350.1.13.10 ity of [place] [facility] 4.2.7.2.686 Emanuel as [id number] [address] 2022-07-29 2022-07-29 [facility] 1.2.840.114 [id number] Univers 00:00:00 00:00:00 [facility] 350.1.13.10 it y of [place] [facility] 4.2.7.2.686 Emanuel as JOLLY?BLEA [id number] [address] MEDICAL OFFICE [facility] 2022-07-27 2022-07-27 Outpatient R [facility]HE[facility] [id number] Univers 08:00:00 08:25:43 TRAY ity of [facility] 2022-07-27 2022-07-27 Office [facility] 1.2.840.114 [id number] Univers 08:00:00 08:25:43 Visit [facility] 350.1.13.10 it y of [place] 4.2.7.2.686 Emanuel as JOLLY?BLEA [id number] [address] MEDICAL OFFICE [facility] 2022-07-19 2022-07-19 Orders Doctor CLAU 1.2.840.114 [id number] Univers 00:00:00 00:00:00 Only Unassigned, GRAYSON 350.1.13.10 ity of [place] [facility] 4.2.7.2.686 Emanuel as [id number] [address] 2022-07-08 2022-07-08 [facility] 1.2.840.114 [id number] Univers 00:00:00 00:00:00 Tray [place] 350.1.13.10 i ty of [place] [facility] 4.2.7.2.686 [place] [id number] [address] 2022-07-07 2022-07-07 Outpatient R STELLA WORLEY [facility] [id number] Univers 00:00:00 00:00:00 STELLA WORLEY it y of [facility] 2022-07-01 2022-07-01 Orders Doctor CLAU 1.2.840.114 [id number] Univers 00:00:00 00:00:00 Only Unassigned, GRAYSON 350.1.13.10 ity of [place] [facility] 4.2.7.2.686 Emanuel as [id number] [address] 2022-06-30 2022-06-30 Outpatient R STELLA WORLEY [facility] [id number] Univers 09:34:33 23:59:00 STELLA WORLEY it y of [facility] 2022-06-30 2022-06-30 [facility] Stella Worley [facility] 1.2.840.114 [id number] Univers 09:34:33 23:59:00 Encounter [place] 350.1.13.10 ity of [facility] 4.2.7.2.[place] [id number] [address] 2022-06-30 2022-06-30 [facility] Stella Worley WIFRANDY 1.2.840.114 [id number] Univers 09:34:16 23:59:00 Encounter [place] 350.1.13.10 ity of [facility] 4.2.7.2.[place] C[place] [id number] [address] 2022-06-30 2022-06-30 Orders Doctor CLAU 1.2.840.114 [id number] Univers 00:00:00 00:00:00 Only Unassigned, GRAYSON 350.1.13.10 ity of [place] [facility] 4.2.7.2.686 Emanuel as [id number] [address] 2022-06-30 2022-06-30 Telephone Stella Worley [facility] 1.2.840.114 [id number] Univers 00:00:00 00:00:00 HEALTH 350.1.13.10 it y of [place] 4.2.7.2.686 [place] LYNN [id number] [address] OFFICE BUILDING 2022-06-24 2022-06-24 Outpatient R BRUNILDA STELLA [facility] [id number] Univers 00:00:00 00:00:00 STELLA WORLEY it y of [facility] 2022-06-24 2022-06-24 Telephone Stella Worley [facility] 1.2.840.114 [id number] Univers 00:00:00 00:00:00 HEALTH 350.1.13.10 it y of [place] 4[place]2.7.2.686 [place] [id number] [address] OFFICE BUILDING 2022-06-21 2022-06-21 Outpatient R JESICABRADFORD [facility] [id number] Univers 11:00:00 11:00:00 TRAY ity of [facility] 2022-06-21 2022-06-21 Telephone Rik [facility] 1.2.840.114 [id number] Univers 00:00:00 00:00:00 Tray HEALTH 350.1.13.10 it y of [place] 4.2.7.2.686 Emanuel as JOLLY?BLEA [phone] Pa gabi [address] MEDICAL OFFICE BUILDING 2022-06-17 2022-06-17 Office Brunilda Stella [facility] 1.2.840.114 [id number] Univers 11:00:00 11:30:00 Visit HEALTH 350.1.13.10 it y of [place] 4.2.7.2.686 [place] [id number] [address] OFFICE BUILDING 2022-06-17 2022-06-17 Outpatient R BRUNILDA STELLA [facility] [id number] Univers 11:00:00 11:00:00 STELLA WORLEY it y of [facility] 2022-06-17 2022-06-17 Refill Brunilda Stella [facility] 1.2.840.114 [id number] Univers 00:00:00 00:00:00 HEALTH 350.1.13.10 it y of [place] 4.2.7.2.686 [place] [id number] [address] OFFICE BUILDING 2022-06-17 2022-06-17 Orders Doctor OLGUIN 1.2.840.114 [id number] Univers 00:00:00 00:00:00 Only Unassigned, GRAYSON 350.1.13.10 ity of [place] [facility] 4.2.7.2.686 Emanuel as [id number] [address] 2022-06-16 2022-06-16 Telephone [facility] 1.2.840.114 [id number] Univers 00:00:00 00:00:00 [facility] 350.1.13.10 it y of [place] 4.2.7.2.686 Emanuel as JOLLY?BLEA [id number] [address] OFFICE [facility] 2022-06-15 2022-06-15 [facility] [id number] [facility] 08:00:00 08:25:29 TRAY ity [facility] 2022-06-15 2022-06-15 Office [facility] 1.2.840.114 [id number] Univers 08:00:00 08:25:29 Visit [facility] 350.1.13.10 it y of [place] 4.2.7.2.686 Emanuel as JOLLY?BLEA [phone] [address] OFFICE [facility] 2022-06-14 2022-06-14 Telephone [facility] 1.2.840.114 [id number] Univers 00:00:00 00:00:00 Cecile [place] 350.1.13.10 i ty of [place] 4.2.7.2.[place] [id number] Pa gabi [address] 2022-06-11 2022-06-11 Telephone [facility] 1.2.840.114 [id number] Univers 00:00:00 00:00:00 [facility] 350.1.13.10 it y of [place] 4.2.7.2.686 Emanuel as JOLLY?BLEA [id number] Pa dicroshan [address] OFFICE [facility] 2022-06-09 2022-06-09 Telephone [facility] 1.2.840.114 [id number] Univers 00:00:00 00:00:00 [facility] 350.1.13.10 it y of [place] 4.2.7.2.686 Emanuel as JOLLY?BLEA [phone] [address] OFFICE [facility] 2022-06-04 2022-06-04 Stella Barrow [facility] 1.2.840.114 [id number] Univers 00:00:00 00:00:00 HEALTH 350.1.13.10 it y of [place] 4[place]2.7.2.[place] [id number] [address] OFFICE [facility] 2022-06-04 2022-06-04 Telephone NurseRy [facility] 1.2.840.114 [id number] Univers 00:00:00 00:00:00 Db HEALTH 350.1.13.10 it y of [place] 4.2.7.2.686 Emanuel as JOLLY?BLEA [id number] Pa dicroshan KNEY 044 [facility] OFFICE [facility] 2022-06-04 2022-06-04 Refill [facility] 1.2.132.956 [id number] Univers 00:00:00 00:00:00 Cecile GREGORIO 350.1.13.10 i ty of [place] 4.2.7.2.[place] [id number] Pa dicroshan [facility] 2022-06-03 2022-06-03 Outpatient R STELLA WORLEY [facility] [id number] Univers 09:30:00 09:30:00 STELLA WORLEY it y of [facility] 2022-06-02 2022-06-02 Aleshiafranchesca Stella Worley [facility] 1.2.840.114 [id number] Univers 00:00:00 00:00:00 HEALTH 350.1.13.10 it y of [place] 4[place]2.7.2.[place] [id number] [address] OFFICE [facility] 2022-06-02 2022-06-02 Reffranchesca BrunildaStella [facility] 1.2.840.114 [id number] Univers 00:00:00 00:00:00 HEALTH 350.1.13.10 it y of [place] 4[place]2.7.2.686 [place] [id number] [address] OFFICE [facility] 2022-06-02 2022-06-02 Telephone Willi [facility] 1.2.840.114 [id number] Univers 00:00:00 00:00:00 Cecile GREGORIO 350.1.13.10 i ty of [facility] 4.2.7.2.[place] [phone] Pa dical NAL [address] BUILDING 2022-06-01 2022-06-01 Orders Doctor CLAU 1.2.840.114 [id number] Univers 00:00:00 00:00:00 Only Unassigned, GRAYSON 350.1.13.10 ity of [place] [facility] 4.2.7.2.686 Emanuel as [id number] [address] 2022-06-01 2022-06-01 Stella Barrow [facility] 1.2.840.114 [id number] Univers 00:00:00 00:00:00 HEALTH 350.1.13.10 it y of [place] 4[place]2.7.2.[place] [id number] [address] OFFICE BUILDING 2022-06-01 2022-06-01 Susan Márquez [facility] 1.2.751.830 [id number] Univers 00:00:00 00:00:00 Cecile GREGORIO 350.1.13.10 i ty of [facility] 4.2.7.2.[place] [id number] Pa dicroshan NAL 188 [facility] 2022-05-28 2022-05-28 Susan Jolly [facility] 1.2.840.114 [id number] Univers 00:00:00 00:00:00 Tray HEALTH 350.1.13.10 it y of [place] 4.2.7.2.686 Emanuel as JOLLY?BLEA [phone] Pa gabi CHAIREZ [address] [place] MEDICAL OFFICE BUILDING 2022-05-26 2022-05-26 Stella Barrow [facility] 1.2.840.114 [id number] Univers 00:00:00 00:00:00 HEALTH 350.1.13.10 it y of [place].2.[place] [phone] [facility] [address] OFFICE BUILDING 2022-05-18 2022-05-18 Outpatient R SANJAY SÁNCHEZ [facility] [id number] Univers 09:00:00 09:00:00 ity of [facility] 2022-05-17 2022-05-17 Outpatient Brock JOLLY [facility] [id number] Univers 09:00:00 09:00:00 TRAY flores [facility] 2022-05-13 2022-05-13 Orders Doctor CLAU 1.2.840.114 [id number] Univers 00:00:00 00:00:00 Only Unassigned, GRAYSON 350.1.13.10 ity of [facility] 4.2.7.2.686 Emanuel as [phone] [address] 2022-05-13 2022-05-13 Telephone Rik [facility] 1.2.840.114 [id number] Univers 00:00:00 00:00:00 [facility] 350.1.13.10 it y of [place] 4.2.7.2.686 Emanuel as JOLLY?BLEA [phone] Pa gabi [address] OFFICE [facility] 2022-05-10 2022-05-10 Outpatient Brock JOLLY [facility] [id number] Univers 16:15:00 16:15:00 TRAY flores [facility] 2022-05-10 2022-05-10 Outpatient R STELLA WORLEY [facility] [id number] Univers 00:00:00 00:00:00 STELLA WORLEY [facility] 2022-05-06 2022-05-06 Telephone BrunildaStella [facility] 1.2.840.114 [id number] Univers 00:00:00 00:00:00 HEALTH 350.1.13.10 [place] [id number] [address] OFFICE [facility] 2022-05-06 2022-05-06 Orders Doctor CLAU 1.2.840.114 [id number] Univers 00:00:00 00:00:00 Only Unassigned, GRAYSON 350.1.13.10 ity of [facility] 4.2.7.2.686 Emanuel as [id number] [address] 2022-04-29 2022-04-29 Outpatient Brock AGUILAR [facility] [id number] Univers 14:00:00 14:00:00 CLAU flores [facility] 2022-04-14 2022-04-14 Outpatient R ROXANNE VIK [facility] [id number] Univers 09:00:00 09:00:00 ity of [facility] 2022-04-12 2022-04-12 Susan Pollard [facility] 1.2.840.114 [id number] Univers 00:00:00 00:00:00 Ricardo GREGORIO 350.1.13.10 [place] [id number] Pa dical NAL [address] BUILDING 2022-04-09 2022-04-09 Outpatient R MOMO [facility] [id number] Univers 11:00:00 11:00:00 ISAC [facility] 2022-04-08 2022-04-08 [facility] 1.2.840.114 [id number] Univers 08:30:00 23:59:00 Encounter [facility] 350.1.13.10 [place] [phone] [facility] [address] OFFICE BUILDING 2022-04-08 2022-04-08 Outpatient R AGUSTINA [facility] [id number] Univers 08:30:00 23:59:00 [facility] ity o f [facility] 2022-04-08 2022-04-08 Telephone Stella Worley [facility] 1.2.840.114 [id number] Univers 00:00:00 00:00:00 [facility] 350.1.13.10 [place] [id number] [place] [id number] Branch OFFICE BUILDING 2022-04-02 2022-04-02 Outpatient R MARY JANE [facility] [id number] Univers 09:30:00 09:30:00 MATEO itjay [facility] 2022-03-31 2022-03-31 Telephone Rik [facility] 1.2.840.114 [id number] Univers 00:00:00 00:00:00 Tray HEALTH 350.1.13.10 it y of Scotty GREGORIO 4.2.7.2.686 Emanuel as JOLLY?BLEA [id number] [address] MEDICAL OFFICE [facility] 2022-03-27 2022-03-27 Emergency [facility] 1.2.734.191 [id number] Univers 07:48:00 08:22:00 Destiny ANGLECHRISTELLE 350.1.13.10 i ty of [place].7.2.[place] [id number] [place] 247564 [place] 2022-03-27 2022-03-27 Emergency X [facility] ERT [id number] Univers 07:48:00 08:22:00 DESTINY ity of [facility] 2022-03-27 2022-03-27 Orders Doctor CLAU 1.2.840.114 [id number] Univers 00:00:00 00:00:00 Only Unassigned, GRAYSON 350.1.13.10 ity of [facility] 4.2.7.2.686 Emanuel as [id number] [address] 2022-03-24 2022-03-24 Telephone [facility] 1.2.840.114 [id number] Univers 00:00:00 00:00:00 [facility] HEALTH 350.1.13.10 it y of [place] [facility] 4.2.7.2.686 Emanuel as JOLLY?BLEA [id number] [address] OFFICE [facility] 2022-03-19 2022-03-19 Orders Doctor CLAU 1.2.840.114 [id number] Univers 00:00:00 00:00:00 Only Unassigned, GRAYSON 350.1.13.10 ity of [facility] 4.2.7.2.686 Emanuel as [phone] [address] 2022-03-19 2022-03-19 Telephone [facility] 1.2.840.114 [id number] [id number] Univers 00:00:00 00:00:00 Tray HEALTH 350.1.13.10 it y of [place] 4.2.7.2.686 Emanuel as JOLLY?BLEA [phone] [address] OFFICE [facility] 2022-03-17 2022-03-17 Telephone [facility] 1.2.840.114 [id number] Univers 00:00:00 00:00:00 Tray HEALTH 350.1.13.10 it y of [place] 4.2.7.2.686 Emanuel as JOLLY?BLEA [phone] Pa gabi JACO[address] MEDICAL OFFICE BUILDING 2022-03-12 2022-03-12 Stella Barrow [facility] 1.2.840.114 [id number] Univers 00:00:00 00:00:00 HEALTH 350.1.13.10 it y of [place] [phone] [facility] [address] OFFICE BUILDING 2022-03-08 2022-03-08 [place] [facility] 1.2.840.114 [id number] [id number] Univers 00:00:00 00:00:00 Tray HEALTH 350.1.13.10 it y of [place] 4.2.7.2.686 Emanuel as JOLLY?BLEA [id number] [address] MEDICAL OFFICE [facility] 2022-03-02 2022-03-02 Outpatient R [facility] MARCUS [id number] [id number] Univers 07:39:00 11:22:00 CECILE flores of [facility] 2022-03-02 2022-03-02 [facility] 1.2.840.114 [id number] Univers 07:39:00 11:22:00 Encounter Cecile GREGORIO 350.1.13.10 ity of [place] 4.2.7.2.686 [place] SURGICAL [id number] [facility] [address] 2022-03-02 2022-03-02 Surgery [facility] 1.2.596.917 [id number] 7779 Univers 09:11:00 10:25:00 Cecile GREGORIO 350.1.13.10 i ty of [place] 4.2.7.2.[place]ICAL [phone] [facility] [address] 2022-03-02 2022-03-02 Orders Doctor OLGUIN 1.2.840.114 [id number] Univers 00:00:00 00:00:00 Only Unassigned, GRAYSON 350.1.13.10 [facility] 4.2.7.2.686 Emanuel as [id number] [address] 2022-03-01 2022-03-01 [facility]phone [facility] 1.2.840.114 [id number] Univers 00:00:00 00:00:00 Cecile JG 350.1.13.10 i ty of [place].7.2.686 [place] [phone] Pa dical NAL 188 [facility] 2022-03-01 2022-03-01 Refill [facility] 1.2.840.114 [id number] Univers 00:00:00 00:00:00 Sendlarissa SimpsonGabeDulce MariaGabe GREGORIO 350.1.13.10 ity of [place] 4.2.7.2.[place] [phone] Pa dicroshan NAL 059 [facility] 2022-02-25 2022-02-25 Outpatient [facility] [id number] Univers 11:00:00 11:00:00 TRAY ity [facility] 2022-02-25 2022-02-25 Telephone Stella Worley [facility] 1.2.840.114 [id number] Univers 00:00:00 00:00:00 HEALTH 350.1.13.10 it y of [place] 4.2.7.2.[place] [phone] [facility] [address] [place] OFFICE [facility] 2022-02-24 2022-02-24 Telephone [facility] 1.2.840.114 [id number] Univers 00:00:00 00:00:00 Tray Optosecurity 350.1.13.10 it y of [place] 4.2.7.2.686 Emanuel as JOLLY?BLEA [phone] Pa gabi KNEY 044 [facility] OFFICE BUILDING 2022-02-23 2022-02-23 Telephone [facility] 1.2.840.114 [id number] [id number] Univers 00:00:00 00:00:00 Tray HEALTH 350.1.13.10 it y of [place] 4.2.7.2.686 Emanuel as JOLLY?BLEA [id number] [facility] [address] OFFICE [facility] 2022-02-22 2022-02-22 Reffranchesca Nisa [facility] 1.2.840.114 [id number] Univers 00:00:00 00:00:00 Wondiful Bryan HEALTH 350.1.13.10 ity of [place] 4.2.7.2.686 Emanuel as JOLLY?BLEA [id number] [address] OFFICE [facility] 2022-02-18 2022-02-18 [facility] 1.2.840.114 [id number] Univers 00:00:00 00:00:00 Secure Msg Tray [facility] 350.1.13.10 ity of [place] JG 4.2.7.2.686 Emanuel as JOLLY?BLEA [id number] [address] 2022-02-18 2022-02-18 Telephone [facility] 1.2.840.114 [id number] Univers 00:00:00 00:00:00 Tray DUGWAY 350.1.13.10 i ty of [place].2.7.2.[place] [id number] [address] 2022-02-16 2022-02-16 Outpatient R RIK [facility] [id number] Univers 09:15:00 09:30:10 TRAY jay [facility] 2022-02-16 2022-02-16 [facility] 1.2.840.114 [id number] Univers 09:15:00 09:30:10 Visit [facility] 350.1.13.10 it y of Edbrittnee [facility] 4.2.7.2.686 Emanuel as JOLLY?BLEA [id number] [address] OFFICE [facility] 2022-02-16 2022-02-16 Outpatient R RIK [facility] [id number] Univers 09:15:00 09:15:00 TRAY flores [facility] 2022-02-16 2022-02-16 Telephone Vik Oliveira [facility] 1.2.840.114 [id number] Univers 00:00:00 00:00:00 HEALTH 350.1.13.10 it y of [place].2.[place] [id number] [address] OFFICE [facility] 2022-02-15 2022-02-15 Outpatient R FLORENCE [facility] [id number] Univers 15:15:00 15:15:00 CAPRICE ity [facility] 2022-02-14 2022-02-14 Nurse CLAU Zarate 1.2.009.116 [id number] Univers 00:00:00 00:00:00 Triage Young GALICIA 350.1.13.10 it y of HOSPITAL 4.2.7.2.686 Emanuel as [id number] [address] 2022-02-12 2022-02-12 Telephone Rik [facility] 1.2.840.114 [id number] Univers 00:00:00 00:00:00 Tray HEALTH 350.1.13.10 it y of [place] [facility] 4.2.7.2.686 Emanuel as JOLLY?BLEA [id number] Pa gabi CHAIREZ [address] [place] [address] OFFICE [facility] 2022-02-11 2022-02-11 Telephone Stella Worley [facility] 1.2.840.114 [id number] Univers 00:00:00 00:00:00 HEALTH 350.1.13.10 it y of [place].2.[place] [id number] [address] OFFICE [facility] 2022-02-11 2022-02-11 Telephone Vik Oliveira [facility] 1.2.840.114 [id number] Univers 00:00:00 00:00:00 HEALTH 350.1.13.10 it y of [place].2.[place] [id number] [address] OFFICE [facility] 2022-02-10 2022-02-10 Outpatient NAV GIANG [facility] [id number] Univers 00:00:00 00:00:00 ity of [facility] 2022-02-10 2022-02-10 Outpatient NAV GIANG [facility] [id number] Univers 00:00:00 00:00:00 ity of [facility] 2022-02-10 2022-02-10 Orders Doctor CLAU 1.2.840.114 [id number] Univers 00:00:00 00:00:00 Only Unassigned, GRAYSON 350.1.13.10 ity of [facility] 4.2.7.2.686 Emanuel as [id number] [address] 2022-02-08 2022-02-08 Outpatient R STELLA WORLEY [facility] [id number] Univers 10:00:00 11:34:48 STELLA WORLEY it y of [facility] 2022-02-08 2022-02-08 Office Brunilda Stlela [facility] 1.2.840.114 [id number] Univers 10:00:00 11:34:48 Visit HEALTH 350.1.13.10 it y of [place].2.[place] [id number] [facility] [address] [place] OFFICE [facility] 2022-02-01 2022-02-01 Telephone [facility] 1.2.613.961 [id number] Univers 00:00:00 00:00:00 Isac S HEALTH 350.1.13.10 it y of [place] 4.2.7.2.686 Emanuel as JOLLY?BLEA [phone] Pa gabi CHAIREZ 198 [facility] OFFICE [facility] 2022-01-28 2022-01-28 Orders Doctor CLAU 1.2.840.114 [id number] Univers 00:00:00 00:00:00 Only Unassigned, GRAYSON 350.1.13.10 ity of [facility] 4.2.7.2.686 Emanuel as [phone] [address] 2022-01-27 2022-01-27 Telephone [facility] 1.2.840.114 [id number] Univers 00:00:00 00:00:00 Tray HEALTH 350.1.13.10 it y of [place] 4.2.7.2.686 Emanuel as JOLLY?BLEA [phone] Pa gabi JACOBS [address] [place] MEDICAL OFFICE [facility] 2022-01-27 2022-01-27 Telephone [facility] 1.2.840.114 [id number] Univers 00:00:00 00:00:00 [facility] 350.1.13.10 it y of [place] 4.2.7.2.686 Emanuel as JOLLY?BLEA [id number] [facility] [address] [place] MEDICAL OFFICE BUILDING 2022-01-27 2022-01-27 Telephone Vik Oliveira Tirso [facility] 1.2.840.114 [id number] Univers 00:00:00 00:00:00 HEALTH 350.1.13.10 it y of [place].2.[place] [phone] [facility] [address] [place] OFFICE BUILDING 2022-01-25 2022-01-25 Outpatient R [facility] [id number] Univers 10:20:49 23:59:00 MATEO flores of [facility] 2022-01-25 2022-01-25 [facility] 1.2.840.114 [id number] Univers 10:00:00 23:59:00 Encounter Mateo GREGORIO 350.1.13.10 it[facility] 4.2.7.2.686 [facility] [id number] [facility] [address] [place] 2022-01-25 2022-01-25 Outpatient R [facility] [id number] Univers 00:00:00 00:00:00 MATEO flores [facility] 2022-01-25 2022-01-25 Orders Doctor OLGUIN 1.2.840.114 [id number] Univers 00:00:00 00:00:00 Only Unassigned, GRAYSON 350.1.13.10 ity of [place] [facility] 4.2.7.2.686 Emanuel as [phone] [address] 2022-01-22 2022-01-22 Telephone Rik [facility] 1.2.840.114 [id number] Univers 00:00:00 00:00:00 Tray HEALTH 350.1.13.10 it y of [place] 4.2.7.2.686 Emanuel as JOLLY?BLEA [phone] [address] OFFICE [facility] 2022-01-22 2022-01-22 Orders Doctor OLGUIN 1.2.840.114 [id number] Univers 00:00:00 00:00:00 Only Unassigned, GRAYSON 350.1.13.10 ity of [place] [facility] 4.2.7.2.686 Emanuel as [phone] [address] 2022-01-21 2022-01-[address] [facility] 1.2.840.114 [id number] Univers 00:00:00 00:00:00 Wondiful A HEALTH 350.1.13.10 ity of [place] 4.2.7.2.686 Emanuel as JOLLY?BLEA [phone] Pa dic[address] OFFICE [facility] 2022-01-20 2022-01-[address] [facility] 1.2.840.114 [id number] Univers 00:00:00 00:00:00 Wondiful A HEALTH 350.1.13.10 ity of [facility] 4.2.7.2.686 Emanuel as JOLLY?BLEA [phone] Pa dic[address] OFFICE [facility] 2022-01-19 2022-01-19 Telephone [facility] 1.2.840.114 [id number] Univers 00:00:00 00:00:00 Tray HEALTH 350.1.13.10 it y of [place] 4.2.7.2.686 Emanuel as JOLLY?BLEA [id number] Pa dic[address] 2022-01-18 2022-01-18 [facility] 1.2.840.114 [id number] Univers 00:00:00 00:00:00 Tray HEALTH 350.1.13.10 it y of [place] 4.2.7.2.686 Emanuel as JOLLY?BLEA 518.4381745 Pa dic[address] OFFICE [facility] 2022-01-13 2022-01-13 Telephone [facility] 1.2.840.114 [id number] Univers 00:00:00 00:00:00 Arnoldo [place] 350.1.13.10 i ty of [place].2.7.2.[place] [phone] Me dicroshan BARNEY 204 [facility] 2022-01-11 2022-01-11 Outpatient Brock BARR [facility] [id number] Univers 14:45:00 23:59:00 [facility] 2022-01-11 2022-01-11 Outpatient Brock [facility] [id number] Univers 14:45:00 23:59:00 [facility] 2022-01-11 2022-01-11 Office [facility] 1.2.840.114 [id number] Univers 13:45:00 14:00:00 Visit [facility] HEALTH 350.1.13.10 it y of [place] 4.2.7.2.686 Emanuel as JOLLY?BLEA [phone] Pa gabi CHAIREZ [address] [facility] 2022-01-11 2022-01-11 Outpatient Brock MOMO [facility] [id number] Univers 13:45:00 13:45:00 [facility] 2022-01-07 2022-01-07 Telephone [facility] 1.2.840.114 [id number] Univers 00:00:00 00:00:00 [facility] HEALTH 350.1.13.10 it y of [place] 4.2.7.2.686 Emanuel as JOLLY?BLEA [phone] Pa gabi CHAIREZ [address] [facility] 2022-01-06 2022-01-06 Telephone [facility] 1.2.840.114 [id number] Univers 00:00:00 00:00:00 Wondiful A HEALTH 350.1.13.10 ity of [place] 4.2.7.2.686 Emanuel as JOLLY?BLEA [phone] Pa gabi CHAIREZ 044 [facility] OFFICE [facility] 2022-01-05 2022-01-05 Telephone [facility] 1.2.840.114 [id number] Univers 00:00:00 00:00:00 Tray HEALTH 350.1.13.10 it y of [place] 4.2.7.2.686 Emanuel as JOLLY?BLEA [phone] Pa gabi CHAIREZ 044 [facility] OFFICE [facility] 2022-01-04 2022-01-04 Telephone [facility] 1.2.840.114 [id number] Univers 00:00:00 00:00:00 [facility] 350.1.13.10 it y of [place] 4.2.7.2.686 Emanuel as JOLLY?BLEA [id number] [address] OFFICE [facility] 2021-12-31 2021-12-31 Telephone [facility] 1.2.840.114 [id number] Univers 00:00:00 00:00:00 [facility] 350.1.13.10 it y of [place] 4.2.7.2.686 Emanuel as JOLLY?BLEA [id number] [address] 2021-12-31 2021-12-31 Telephone [facility] 1.2.840.114 [id number] [id number] Univers 00:00:00 00:00:00 [facility] 350.1.13.10 it y of [place] 4.2.7.2.686 Emanuel as JOLLY?BLEA [id number] [address] 2021-12-30 2021-12-30 [facility] 1.2.840.114 [id number] Univers 00:00:00 00:00:00 Outreach Genesis Shah [facility] 350.1.13.10 ity of [facility] 4.2.7.2.686 Emanuel as PROFESSIO [id number] [address] ONE 2021-12-28 2021-12-28 Outpatient R WILLI [facility] [id number] Univers 09:30:00 10:07:08 CECILE flores [facility] 2021-12-28 2021-12-28 Outpatient R WILLI [facility] [id number] Univers 09:30:00 10:07:08 CECILE flores [facility] 2021-12-28 2021-12-28 Office [facility] 1.2.359.451 [id number] Univers 09:30:00 10:07:08 Visit Cecile GREGORIO 350.1.13.10 i ty of [place] 4.2.7.2.[place] [phone] Pa gabi BARNEY 188 [facility] 2021-12-24 2021-12-24 Outpatient R [facility] [id number] Univers 14:00:00 14:00:00 ity of [facility] 2021-12-24 2021-12-24 Patient [facility]ford[facility] 1.2.840.114 [id number] Univers 00:00:00 00:00:00 Secure Msg [facility] 350.1.13.10 ity of [place] 4.2.7.2.686 Emanuel as JOLLY?BLEA [phone] [facility] [address] OFFICE [facility] 2021-12-22 2021-12-22 Telephone [facility] 1.2.840.114 [id number] Univers 00:00:00 00:00:00 Cecile GREGORIO 350.1.13.10 i ty [facility] 4.2.7.2.[place] [phone] Pa gabi BARNEY [address] [place] [address] 2021-12-16 2021-12-16 Telephone [facility] 1.2.840.114 [id number] Univers 00:00:00 00:00:00 [facility] 350.1.13.10 it y of [place]brittnee [place] 4.2.7.2.686 Emanuel as JOLLY?BLEA [phone] Pa gabi CHAIREZ [address] [place] [address] OFFICE [facility] 2021-12-11 2021-12-11 Surgery [facility] 1.2.516.592 [id number] Univers 10:33:00 11:46:00 Cecile [place] 350.1.13.10 i ty of [place] 4.2.7.2.[place] SUR[place]ICAL [id number] [address] 2021-12-11 2021-12-11 Surgery [facility] 1.2.224.801 [id number] 9758 Univers 10:33:00 11:46:00 Cecile [place] 350.1.13.10 i ty of [place] 4.2.7.2.686 [place]ICAL [id number] [address] 2021-12-11 2021-12-11 Surgery [facility] 1.2.481.029 [id number] 9758 Univers 10:33:00 11:46:00 Cecile JG 350.1.13.10 i ty [facility] 4.2.7.2.[place] [id number] [facility] [address] 2021-12-11 2021-12-11 Outpatient [facility] [id number] Univers 08:40:00 11:25:00 [facility] 2021-12-11 2021-12-11 [facility] 1.2.840.114 [id number] Univers 08:40:00 11:25:00 Encounter Cecile JG 350.1.13.10 ity [facility] 4.2.7.2.[place] [id number] [facility] [address] [place] 2021-12-11 2021-12-11 Outpatient R [facility] [id number] Univers 08:40:00 11:25:00 [facility] 2021-12-11 2021-12-11 Outpatient R [facility] MARCUS [id number] Univers 08:40:00 11:25:00 [facility] 2021-12-11 2021-12-11 Orders Doctor CLAU 1.2.840.114 [id number] Univers 00:00:00 00:00:00 Only Unassigned, GRAYSON 350.1.13.10 ity of [place] [facility] 4.2.7.2.686 Emanuel as [id number] [address] 2021-12-09 2021-12-09 Telephone [facility] 1.2.840.114 [id number] Univers 00:00:00 00:00:00 Wondiful A HEALTH 350.1.13.10 ity of [place] 4.2.7.2.686 Emanuel as JOLLY?BLEA [phone] Pa gabi [address] MEDICAL OFFICE BUILDING 2021-12-08 2021-12-08 Outpatient R [facility] [id number] Univers 13:00:00 13:00:00 ity [facility] 2021-12-08 2021-12-08 Telephone [facility] 1.2.840.114 [id number] Univers 00:00:00 00:00:00 Tray HEALTH 350.1.13.10 it y of [place] 4.2.7.2.686 Emanuel as JOLLY?BLEA [phone] [facility] [address] OFFICE [facility] 2021-12-08 2021-12-08 Telephone [facility] 1.2.840.114 [id number] Univers 00:00:00 00:00:00 Tray HEALTH 350.1.13.10 it y of [place] 4.2.7.2.686 Emanuel as JOLLY?BLEA [id number] [facility] [address] 2021-12-03 2021-12-03 Outpatient R [facility] [id number] Univers 13:30:00 13:30:00 [facility] 2021-12-03 2021-12-03 Telephone [facility] 1.2.840.114 [id number] Univers 00:00:00 00:00:00 Cecile JG 350.1.13.10 i ty justin [facility] 4.2.7.2.[place] [id number] [facility] 188 [facility] 2021-12-03 2021-12-03 Telephone [facility] 1.2.840.114 [id number] Univers 00:00:00 00:00:00 Wondiful A HEALTH 350.1.13.10 ity of [facility] 4.2.7.2.686 Emanuel as PROFESSIO [id number] [address] ONE 2021-12-01 2021-12-01 Outpatient [facility] [id number] Univers 14:15:00 14:54:12 WONDIFUL ity o f [facility] 2021-12-01 2021-12-01 Office [facility] 1.2.840.114 [id number] Univers 14:15:00 14:54:12 Visit Wondiful A HEALTH 350.1.13.10 ity of [place] 4.2.7.2.686 Emanuel as JOLLY?BLEA [phone] Pa gabi CHAIREZ [address] [place] [address] MEDICAL OFFICE BUILDING 2021-12-01 2021-12-01 Outpatient R NISA [facility] [id number] Univers 14:15:00 14:54:12 WONDIFUL ity o f [facility] 2021-12-01 2021-12-01 Patient Scot [facility] 1.2.840.114 [id number] Univers 00:00:00 00:00:00 Outreach [facility] 350.1.13.10 i ty of [facility] 4.2.7.2.686 Emanuel as JOLLY?BLEA [phone] Pa gabi JACOBS[address] MEDICAL OFFICE [facility] 2021-12-01 2021-12-01 Patient Scot [facility] 1.2.840.114 [id number] Univers 00:00:00 00:00:00 [facility] 350.1.13.10 i ty of [place] 4.2.7.2.686 Emanuel as JOLLY?BLEA [phone] Pa gabi JACOBS[address] MEDICAL OFFICE [facility] 2021-11-18 2021-11-18 Outpatient R NISA [facility] [id number] Univers 10:00:00 10:44:34 WONDIFUL ity o f [facility] 2021-11-18 2021-11-18 Outpatient R NISA [facility] [id number] Univers 10:00:00 10:44:34 WONDIFUL ity o f [facility] 2021-11-18 2021-11-18 Outpatient R NISA [facility] [id number] Univers 10:00:00 10:00:00 WONDIFUL ity o f [facility] 2021-11-18 2021-11-18 Outpatient R NISA [facility] [id number] Univers 10:00:00 10:00:00 WONDIFUL ity o f [facility] 2021-11-18 2021-11-18 Outpatient R NISA [facility] [id number] Univers 10:00:00 10:00:00 WONDIFUL ity o f [facility] 2021-11-16 2021-11-16 Outpatient R WILLI [facility] [id number] Univers 09:30:00 09:30:00 CECILE flores [facility] 2021-11-16 2021-11-16 Outpatient R WILLI [facility] [id number] Univers 09:30:00 09:30:00 CECILE flores [facility] 2021-11-16 2021-11-16 Outpatient R WILLI [facility] [id number] Univers 09:30:00 09:30:00 CECILE flores [facility] 2021-11-15 2021-11-15 [facility] [id number] Univers 09:06:00 12:49:00 DESTINY flores [facility] 2021-11-15 2021-11-15 [facility] [id number] Univers 09:06:00 12:49:00 Destiny [place] 350.1.13.10 i ty of [place] 4[place]2.7.2.686 [place] [facility] [phone] [facility] [address] [place] 2021-11-15 2021-11-15 Emergency [facility] [id number] Univers 09:06:00 12:49:00 DESTINY flores [facility] 2021-11-10 2021-11-10 [facility]phone [facility] [id number] Univers 00:00:00 00:00:00 Wondiful A HEALTH 350.1.13.10 ity of [place] 4.2.7.2.686 Emanuel as JOLLY?BLEA [phone] Pa gabi [address] MEDICAL OFFICE BUILDING 2021-11-05 2021-11-05 Orders Doctor CLAU [id number] Univers 00:00:00 00:00:00 Only Unassigned, GRAYSON 350.1.13.10 ity of [place] [facility] 4.2.7.2.686 Emanuel as [phone] [facility] [address] [place] 2021-11-05 2021-11-05 [facility]phone [facility] 1.2.840.114 [id number] Univers 00:00:00 00:00:00 Wondiful A HEALTH 350.1.13.10 ity of [place] 4.2.7.2.686 Emanuel as JOLLY?BLEA [phone] Pa dical [place] [address] [place] MEDICAL OFFICE [facility] 2021-11-03 2021-11-03 Telephone Nisa [facility] 1.2.840.114 [id number] Univers 00:00:00 00:00:00 Wondiful A HEALTH 350.1.13.10 ity of [place] 4.2.7.2.686 Emanuel as JOLLY?BLEA [phone] Pa dicroshan JACOBSEY 044 [facility] OFFICE [facility] 2021-11-03 2021-11-03 [facility] 1.2.840.114 [id number] Univers 00:00:00 00:00:00 Wondiful A HEALTH 350.1.13.10 ity of [place] 4.2.7.2.686 Emanuel as JOLLY?BLEA [phone] Pa dicroshan JACOBSEY 044 [facility] OFFICE [facility] 2021-10-27 2021-10-27 Case Sanjay Sánchez 1.2.840.114 [id number] Univers 00:00:00 00:00:00 Management H 350.1.13.10 ity of BUILDING 4.2.7.2.686 Emanuel as [phone] [place] [id number] [place] 2021-10-26 2021-10-26 Telephone Sanjay Sánchez 1.2.840.114 [id number] Univers 00:00:00 00:00:00 H 350.1.13.10 it y of BUILDING 4.2.7.2.686 Emanuel as [phone] [place] 247560 [place] 2021-10-23 2021-10-23 Telephone Jaymie [facility] [id number] Univers 00:00:00 00:00:00 Corry A [place] 350.1.13.10 it[place] of [place] [id number] Pa dicroshan [facility] 188 [facility] 2021-10-22 2021-10-22 Outpatient R MOMO [facility] [id number] Univers 14:45:00 14:45:00 ISAC itjay [facility] 2021-10-22 2021-10-22 Outpatient Brock MOMO [facility] [id number] Univers 14:45:00 14:45:00 ISAC ity [facility] 2021-10-22 2021-10-22 Outpatient Brock MOMO [facility] [id number] Univers 14:45:00 14:45:00 ISAC itjay [facility] 2021-10-22 2021-10-22 Outpatient Brock MOMO [facility] [id number] Univers 14:45:00 14:45:00 [facility] 2021-10-19 2021-10-19 [facility]phone [facility] 1.2.840.114 [id number] Univers 00:00:00 00:00:00 Wondiful A HEALTH 350.1.13.10 ity of [place] 4.2.7.2.686 Emanuel as JOLLY?BLEA [phone] Pa gabi [address] MEDICAL OFFICE [facility] 2021-10-13 2021-10-13 Outpatient R JAYMIE [facility] [id number] Univers 10:30:00 10:41:12 CORRY jay [facility] 2021-10-13 2021-10-13 Office [facility] 1.2.840.114 [id number] Univers 10:30:00 10:41:12 Visit Corry Adams [place] 350.1.13.10 it[place] of [place] [phone] Pa gabi BARNEY [facility] 2021-10-13 2021-10-13 [facility] [id number] Univers 10:30:00 10:41:12 CORRY flores [facility] 2021-09-29 2021-09-29 Outpatient R FLORENCE [facility] [id number] Univers 16:14:01 23:59:00 CAPRICE flores [facility] 2021-09-29 2021-09-29 Outpatient R FLORENCE [facility] [id number] Univers 16:14:01 23:59:00 CAPRICE [facility] 2021-09-29 2021-09-29 Hospital [facility] 1.2.840.114 [id number] Univers 16:14:01 23:59:00 Encounter Caprice THAPA 350.1.13.10 ity justin [place] 4.2.7.2.686 Emanuel as JOLLY?BLEA [phone] Me dical CONTRERAS [address] [facility] OFFICE [facility] 2021-09-29 2021-09-29 Outpatient [facility] [id number] Univers 16:14:01 23:59:00 CAPRICE itjay [facility] 2021-09-29 2021-09-29 Office [facility] 1.2.840.114 [id number] Univers 16:00:00 16:58:02 [facility] 350.1.13.10 it y [facility] 4.2.7.2.686 Emanuel as JOLLY?BLEA [phone] Pa dicroshan JACOBS [address] [facility] OFFICE [facility] 2021-09-29 2021-09-29 Outpatient [facility] [id number] Univers 16:00:00 16:58:02 [facility] 2021-09-29 2021-09-29 Outpatient Brock [facility] [id number] Univers 16:00:00 16:58:02 [facility] 2021-09-29 2021-09-29 Outpatient Brock BARR [facility] [id number] Univers 16:00:00 16:00:00 [facility] 2021-09-24 2021-09-24 Outpatient Brock [facility] [id number] Univers 14:00:00 14:00:00 [facility] 2021-09-19 2021-09-19 Nurse Caprice Ozuna 1.2.840.114 [id number] Univers 00:00:00 00:00:00 Triage GRYASON 350.1.13.10 it y of [facility] 4.2.7.2.686 Emanuel as [id number] [address] 2021-09-09 2021-09-09 Prep For Jaymie [facility] 1.2.840.114 [id number] Univers 00:00:00 00:00:00 Surgery Corry BYERSCHRISTELLE 350.1.13.10 it[place] of [place] [phone] Pa dical NAL 204 [facility] 2021-09-08 2021-09-08 [facility] 1.2.929.238 [id number] Univers 14:30:00 16:16:36 Visit Cecile GREGORIO 350.1.13.10 i ty of [place] [phone] Pa dical NAL 188 [facility] 2021-09-08 2021-09-08 Out[facility] [id number] Univers 14:30:00 16:16:36 CECILE flores [facility] 2021-09-08 2021-09-08 Outpatient [facility] [id number] Univers 14:30:00 16:16:36 [facility] 2021-09-08 2021-09-08 Outpatient [facility] [id number] Univers 14:30:00 14:30:00 CECILE flores [facility] 2021-09-08 2021-09-08 Orders Doctor CLAU 1.2.840.114 [id number] Univers 00:00:00 00:00:00 Only Unassigned, GRAYSON 350.1.13.10 ity of [place] [facility] 4.2.7.2.686 Emanuel as [phone] [address] 2021-09-02 2021-09-02 Outpatient R FLORENCE [facility] [id number] Univers 14:00:00 14:00:00 CAPRICE flores [facility] 2021-08-31 2021-08-31 Orders Doctor OLGUIN 1.2.840.114 [id number] Univers 00:00:00 00:00:00 Only Unassigned, GRAYSON 350.1.13.10 ity of [place] [facility] 4.2.7.2.686 Emanuel as [id number] [address] 2021-08-26 2021-08-26 Outpatient Brock PAULA [facility] [id number] Univers 10:45:00 11:58:51 WONDIFUL ity o f [facility] 2021-08-26 2021-08-26 Outpatient R NISA [facility] [id number] Univers 10:45:00 11:58:51 WONDIFUL ity o f [facility] 2021-08-26 2021-08-26 Outpatient R NISA [facility] [id number] Univers 10:45:00 11:58:51 WONDIFUL ity o f [facility] 2021-08-26 2021-08-26 Outpatient R NISA [facility] [id number] Univers 10:45:00 11:58:51 WONDIFUL ity o f [facility] 2021-08-26 2021-08-26 Office [facility] 1.2.840.114 [id number] Univers 10:34:47 11:58:51 Visit Wondiful A HEALTH 350.1.13.10 ity of [place] 4.2.7.2.686 Emanuel as JOLLY?BLEA [phone] [address] MEDICAL OFFICE [facility] 2021-08-17 2021-08-17 [facility] 1.2.840.114 [id number] Univers 00:00:00 00:00:00 Management Wondiful A HEALTH 350.1.13.10 ity of [place] 4.2.7.2.686 Emanuel as JOLLY?BLEA [id number] [address] MEDICAL OFFICE [facility] 2021-08-13 2021-08-13 Outpatient R NISA, [facility] [id number] Univers 07:58:20 23:59:00 WONDIFUL ity o f [facility] 2021-08-13 2021-08-13 Hospital [facility] 1.2.367.334 [id number] Univers 07:58:20 23:59:00 Encounter Wondiful A [place] 350.1.13.10 ity of [place].2.[place] [id number] [facility] [address] [place] [address] 2021-08-13 2021-08-13 Out[facility] [id number] Univers 07:58:20 23:59:00 WONDIFUL ity o f [facility] 2021-08-13 2021-08-13 Rn Pediatric Icu Zachariah, Kevin [facility] Main [facility] 1.2.8 40.114 [id number] Univers 07:57:57 08:12:57 Visit Andrea Paula A [place] 350.1.13. 10 ity of [place] [phone] Pa dical NAL [address] BUILDING 2021-08-13 2021-08-13 Outpatient R NISA, [facility] [id number] Univers 00:00:00 00:00:00 WONDIFUL ity o f [facility] 2021-08-04 2021-08-04 Outpatient R NISA [facility] [id number] Univers 15:30:00 15:42:52 WONDIFUL ity o f [facility] 2021-08-04 2021-08-04 Outpatient R NISA, [facility] [id number] Univers 15:30:00 15:42:52 WONDIFUL ity o f [facility] 2021-08-04 2021-08-04 Outpatient R NISA [facility] [id number] Univers 15:30:00 15:42:52 WONDIFUL ity o f [facility] 2021-08-04 2021-08-04 Outpatient R NISA [facility] [id number] Univers 15:30:00 15:42:52 WONDIFUL ity o f [facility] 2021-08-04 2021-08-04 Outpatient R NISA [facility] [id number] Univers 15:30:00 15:42:52 WONDIFUL ity o [facility] 2021-08-04 2021-08-04 Office [facility] 1.2.840.114 [id number] [facility] Univers 14:30:05 15:42:52 Visit Wondiful A HEALTH 350.1.13.10 ity of [place] 4.2.7.2.686 Emanuel as JOLLY?BLEA [phone] Pa dical KNEY [address] [place] MEDICAL OFFICE BUILDING 2021-08-04 2021-08-04 [facility] [id number] Univers 15:30:00 15:30:00 WONDIFUL ity o [facility] 2021-08-03 2021-08-03 Pre Visit CLAU Edmondson 1.2.840.114 [id number] Univers 00:00:00 00:00:00 Outreach Jorge Fleming [place] 350.1.13.10 i [facility] 4.2.7.2.686 Emanuel as [id number] [place] 247562 [place] 2021-07-15 2021-07-15 Outpatient R [facility] [id number] Univers 14:20:00 14:20:00 SHORTY ity o [facility] 2021-07-15 2021-07-15 [facility] [id number] Univers 14:20:00 14:20:00 SHORTY mark o [facility] 2021-07-15 2021-07-15 Outpatient Borck [facility] [id number] Univers 14:20:00 14:20:00 SHORTY ity o [facility] 2021-07-15 2021-07-15 Out[facility] R [facility] [id number] Univers 14:20:00 14:20:00 SHORTY mark o [facility] 2021-07-14 2021-07-14 [facility] 1.2.840.114 [id number] Univers 00:00:00 00:00:00 Wondiful A Health 350.1.13.10 ity of [place] 4.2.7.2.686 Emanuel as Professio [id number] [facility] [address] Office Building One 2021-07-10 2021-07-10 Outpatient Jessica_S ROBYN [facility] [id number] Devoted 05:13:00 05:13:00 1015 Medica l Group 2021-07-02 2021-07-02 Reffranchesca [facility]UN[facility] 1.2.840.114 [id number] Univers 00:00:00 00:00:00 Wondiful A Health 350.1.13.10 ity of [place] 4.2.7.2.686 Emanuel as Professio [phone] Pa dical [facility] [address] Office Building One 2021-06-15 2021-06-15 Orders Doctor CLAU 1.2.840.114 [id number] Univers 00:00:00 00:00:00 Only Unassigned, GRAYSON 350.1.13.10 ity of [place] [facility] 4.2.7.2.686 Emanuel as [phone] [facility] [address] 2021-06-08 2021-06-08 Patient [employer]upo Garcia 1.2.840.114 [id number] Univers 00:00:00 00:00:00 Outreach Emily J Chavarria 350.1.13.10 ity of [place]2.[place].2.[place] [phone] [facility] 086 [place] 2021-06-08 2021-06-08 Refill Vik Oliveira [facility] 1.2.840.114 [id number] Univers 00:00:00 00:00:00 Health 350.1.13.10 it y of [place].2.[place] [phone] [place] [id number] [place] Office Building 2021-05-25 2021-05-25 Emergency X DREVER, [facility] ERT [id number] Univers 18:22:00 20:23:00 [facility] ity [facility] 2021-05-25 2021-05-25 Emergency X DREVER, WIMB ERT [id number] Univers 18:22:00 20:23:00 [facility] ity [facility] 2021-05-25 2021-05-25 Emergency X DREVER, WIMB ERT [id number] Univers 18:22:00 20:23:00 [facility] ity [facility] 2021-05-25 2021-05-25 Emergency X DREVER, WIMB ERT [id number] Univers 18:22:00 20:23:00 [facility] 2021-05-25 2021-05-25 Emergency X DREVER, WIMB ERT [id number] Univers 18:22:00 20:23:00 [facility] 2021-05-25 2021-05-25 Emergency [place] 1.2.097.911 [id number] Univers 18:22:00 20:23:00 Laureen Turong [place] 350.1.13.10 ity [facility] 4.2.7.2.686 [facility] [phone] [facility] 084 [place] 2021-05-21 2021-05-21 Outpatient LAILA GOODWIN [facility] [id number] Univers 09:30:00 09:30:00 LAILA ORELLANA i [facility] 2021-05-19 2021-05-19 Refill [facility] 1.2.840.114 [id number] Univers 00:00:00 00:00:00 [facility] 350.1.13.10 ity [facility] 4.2.7.2.686 [facility] [phone] Pa dical [address] Office [facility] One 2021-05-14 2021-05-14 Outpatient SANJAY DIAZ [facility] [id number] Univers 09:00:00 09:00:00 ity [facility] 2021-05-09 2021-05-09 Outpatient DMG DMG [id number] Devoted 11:00:00 11:00:00 0814 Medica l Group 2021-05-08 2021-05-08 Outpatient Brock HENRIQUEZ [facility] [id number] Univers 07:37:21 23:59:00 [facility] 2021-05-08 2021-05-08 Outpatient Brock HENRIQUEZ [facility] [id number] Univers 07:37:21 23:59:00 [facility] 2021-05-08 2021-05-08 Outpatient Brock HENRIQUEZ [facility] [id number] Univers 07:37:21 23:59:00 [facility] 2021-05-08 2021-05-08 Outpatient Brock HENRIQUEZ [facility] [id number] Univers 07:37:21 23:59:00 [facility] 2021-05-08 2021-05-08 Outpatient Brock BARR [facility] [id number] Univers 08:15:00 08:15:00 ISAC flores [facility] 2021-05-07 2021-05-07 Outpatient DMG DMG [id number] Devoted 12:00:00 12:00:00 0812 Medica l Group 2021-04-27 2021-04-27 Refill [facility] 1.2.840.114 [id number] Univers 00:00:00 00:00:00 [facility] 350.1.13.10 it y of [place] 4.2.7.2.686 Emanuel as PROFESSIO [phone] Pa dical NAL [address] OFFICE BUILDING ONE 2021-04-21 2021-04-21 [facility] [id number] Univers 15:45:00 15:45:00 WONSATURNINO flores o birdie [facility] 2021-04-07 2021-04-07 Outpatient R [facility] [id number] Univers 09:20:00 09:20:00 RD jay [facility] 2021-04-02 2021-04-02 Outpatient R MOMO [facility] [id number] Univers 08:45:00 08:45:00 ISAC [facility] 2021-04-01 2021-04-01 Emergency [facility] [id number] Univers 13:00:00 15:36:00 DESTINY [facility] 2021-04-01 2021-04-01 Emergency [facility]RT [id number] Univers 13:00:00 15:36:00 DESTINY [facility] 2021-04-01 2021-04-01 Emergency X NINO, [facility] ERT [id number] Univers 13:00:00 15:36:00 DESTINY [facility] 2021-04-01 2021-04-01 Outpatient R [facility] [id number] Univers 08:45:00 08:45:00 [facility] 2021-03-28 2021-03-28 Outpatient R BELLA [facility] [id number] Univers 09:40:00 09:40:00 CHELA flores o f [facility] 2021-03-27 2021-03-27 Outpatient R MARY JANE [facility] [id number] Univers 09:30:00 09:30:00 MATEO jay [facility] 2021-03-26 2021-03-26 Outpatient Brock BARR, [facility] [id number] Univers 15:15:00 15:15:00 ISAC ity [facility] 2021-03-25 2021-03-25 Outpatient Brock COON, [facility] [id number] Univers 08:30:00 08:30:00 [facility] 2021-03-23 2021-03-23 Outpatient R STEFFANIE, [facility] [id number] Univers 08:00:00 08:00:00 EMERY phillipsy o f [facility] 2021-03-20 2021-03-20 Emergency X STEPHEN, K [facility] ERT [id number] Univers 19:09:00 19:47:00 ity [facility] 2021-03-20 2021-03-20 Emergency X STEPHEN, K [facility] ERT [id number] Univers 19:09:00 19:47:00 ity [facility] 2021-03-20 2021-03-20 Emergency X STEPHEN, K [facility] ERT [id number] Univers 19:09:00 19:47:00 ity [facility] 2021-03-18 2021-03-18 Outpatient Brock HENRIQUEZ, [facility] NUT [id number] Univers 00:00:00 00:00:00 CAPRICE [facility] 2021-03-12 2021-03-12 Outpatient Brock [facility] [id number] Univers 08:30:00 08:30:00 ISAC [facility] 2021-03-11 2021-03-11 Outpatient Brock [facility] [id number] Univers 16:15:00 16:15:00 [facility] 2021-03-10 2021-03-10 Susan CastroUN[facility] 1.2.840.114 [id number] Univers 00:00:00 00:00:00 [facility] 350.1.13.10 it y of [place] 4.2.7.2.686 [facility] [phone] [place] [id number] Branch OFFICE BUILDING 2021-02-25 2021-02-25 Outpatient R MOMO [facility] [id number] Univers 14:30:00 14:30:00 ISAC jay [facility] 2021-02-25 2021-02-25 Telephone [facility] 1.2.717.125 [id number] 00:00:00 00:00:00 Sendil Kaley Gregorio 350.1.13.10 [place] 4.2.7.2.686 [facility] [phone] [facility] 059 Building 2021-02-24 2021-02-24 Outpatient R NISA [facility] [id number] Univers 11:00:00 11:00:00 WONDIFUL ity o f [facility] 2021-02-19 2021-02-19 Outpatient R FLORENCE [facility] [id number] Univers 10:03:49 23:59:00 [facility] 2021-02-19 2021-02-19 Outpatient R FLORENCE [facility] [id number] Univers 00:00:00 00:00:00 CAPRICE [facility] 2021-02-17 2021-02-17 Outpatient R [facility] [id number] Univers 17:40:00 17:40:00 [facility] 2021-02-17 2021-02-17 Outpatient R JONA [facility] [id number] Univers 17:40:00 17:17:33 ROGE [facility] 2021-02-17 2021-02-17 Outpatient R JONA [facility] [id number] Univers 17:40:00 17:17:33 [facility] 2021-02-17 2021-02-17 Outpatient R JONA [facility] [id number] Univers 17:40:00 17:17:33 ROGE [facility] 2021-02-10 2021-02-10 Outpatient R ATUL [facility] [id number] Univers 09:00:00 09:00:00 SENDIL [facility] 2021-02-09 2021-02-09 Outpatient Brock BARR [facility] [id number] Univers 14:45:00 14:45:00 [facility] 2021-02-09 2021-02-09 Outpatient R MOMO [facility] [id number] Univers 14:45:00 14:45:00 [facility] 2021-02-04 2021-02-04 Outpatient R RITAHERMILA GALLARDOARBernadette [facility] [id number] Univers 10:30:00 10:30:00 [facility] 2021-02-03 2021-02-03 Outpatient R NISA, [facility] [id number] Univers 16:30:00 16:30:00 WONDIFUL ity o [facility] 2021-01-27 2021-01-27 Outpatient R NAV ANTONIO [facility] [id number] Univers 15:00:00 15:00:00 [facility] 2021-01-21 2021-01-21 Outpatient R ATUL [facility] [id number] Univers 11:00:00 11:00:00 SENDIL [facility] 2021-01-20 2021-01-20 Outpatient R PRINCESS SANJAY [facility] [id number] Univers 11:00:00 11:00:00 [facility] 2021-01-14 2021-01-14 Outpatient R RIK, [facility] [id number] Univers 10:45:00 10:45:00 TRAY [facility] 2021-01-08 2021-01-08 Outpatient R MOMO [facility] [id number] Univers 08:45:00 08:45:00 [facility] 2021-01-06 2021-01-06 Outpatient R AIMEE [facility] [id number] Univers 11:00:00 11:00:00 SHORTY ity o [facility] 2021-01-01 2021-01-01 Outpatient R NISA [facility] [id number] Univers 15:00:00 15:00:00 WONDIFUL ity o f [facility] 2021-01-01 2021-01-01 Outpatient R NISA [facility] [id number] Univers 15:00:00 15:00:00 WONDIFUL ity o f [facility] 2021-01-01 2021-01-01 Outpatient R NISA [facility] [id number] Univers 15:00:00 15:00:00 WONDIFUL ity o f [facility] 2021-01-01 2021-01-01 Outpatient R NISA [facility] [id number] Univers 15:00:00 15:00:00 WONDIFUL ity o f [facility] 2020-12-13 2020-12-13 Outpatient [facility] [id number] Univers 08:25:00 08:25:00 ity [facility] 2020-12-13 2020-12-13 Outpatient Brock LINDO [facility] [id number] Univers 08:25:00 08:25:00 TAMMY ity [facility] 2020-12-13 2020-12-13 Outpatient Brock LINDO [facility] [id number] Univers 08:25:00 08:25:00 TAMMY ity [facility] 2020-12-13 2020-12-13 Outpatient R BELGICA [facility] [id number] Univers 08:25:00 08:25:00 [facility] 2020-12-02 2020-12-02 Outpatient R JAKE, [facility] [id number] Univers 09:00:00 09:00:00 LIANA ity [facility] 2020-12-02 2020-12-02 Outpatient R JAKE [facility] [id number] Univers 09:00:00 09:00:00 LIANA ity [facility] 2020-12-02 2020-12-02 Outpatient R JAKE, [facility] [id number] Univers 09:00:00 09:00:00 LIANA ity [facility] 2020-12-02 2020-12-02 Outpatient R JAKE, [facility] [id number] Univers 09:00:00 09:00:00 LIANA ity [facility] 2020-11-22 2020-11-22 Outpatient R BELGICA [facility] [id number] Univers 09:40:00 09:40:00 TAMMY itjay [facility] 2020-11-22 2020-11-22 Outpatient R BELGICA [facility] [id number] Univers 09:40:00 09:40:00 TAMMY y [facility] 2020-11-22 2020-11-22 Outpatient R BELGICA [facility] [id number] Univers 09:40:00 09:40:00 TAMMY [facility] 2020-11-21 2020-11-21 Outpatient R DONOVAN [facility] [id number] Univers 14:00:00 14:00:00 BOOGIEBrock [facility] 2020-11-20 2020-11-20 Outpatient R LAILA ORELLANA [facility] [id number] Univers 15:00:00 15:00:00 LAILA ORELLANA [facility] 2020-11-09 2020-11-09 Outpatient R OSMAR [facility] [id number] Univers 08:20:00 08:20:00 RD [facility] 2020-11-09 2020-11-09 Outpatient R OSMAR [facility] [id number] Univers 08:20:00 08:20:00 [facility] 2020-11-09 2020-11-09 Outpatient R OSMAR [facility] [id number] Univers 08:20:00 08:20:00 [facility] 2020-11-07 2020-11-07 Outpatient R VIK OLIVEIRA [facility] [id number] Univers 11:30:00 11:30:00 ity [facility] 2020-11-06 2020-11-06 Outpatient R NISA [facility] [id number] Univers 08:15:00 08:15:00 WONDIFUL itjay o f [facility] 2020-10-16 2020-10-16 Outpatient R OSMAR [facility] [id number] Univers 18:00:00 18:00:00 [facility] 2020-10-02 2020-10-02 Outpatient Brock BARR [facility] [id number] Univers 10:15:00 10:15:00 ISAC itjay [facility] 2020-09-22 2020-09-22 Outpatient R SELF, [facility] [id number] Univers 08:00:00 08:00:00 EMERY ity o f [facility] 2020-09-15 2020-09-15 Outpatient R NISA, [facility] [id number] Univers 00:00:00 00:00:00 WONDIFUL ity o f [facility] 2020-09-15 2020-09-15 Outpatient R NISA, [facility] [id number] Univers 00:00:00 00:00:00 WONDIFUL ity o f [facility] 2020-09-14 2020-09-14 Outpatient R GREEN, [facility] [id number] Univers 08:40:00 08:40:00 ROGE [facility] 2020 2020 Outpatient R NISA, [facility] [id number] Univers 00:00:00 00:00:00 WONDIFUL ity o f [facility] 2020-09-10 2020-09-10 Outpatient R DUCKWORTH, [facility] [id number] Univers 08:00:00 08:00:00 SHANTI itjay [facility] 2020-09-08 2020-09-08 Outpatient R SELF, [facility] [id number] Univers 08:00:00 08:00:00 EMERY ity o f [facility] 2020-09-04 2020-09-04 Outpatient R NISA, [facility] [id number] Univers 16:00:00 16:00:00 WONDIFUL ity o f [facility] 2020-08-25 2020-08-25 Outpatient R NISA, [facility] [id number] Univers 11:00:00 11:13:03 WONDIFUL ity o f [facility] 2020-08-25 2020-08-25 Outpatient R NISA, [facility] [id number] Univers 10:30:00 10:30:00 WONDIFUL ity o f [facility] 2020-08-06 2020-08-06 Outpatient R PATRICIO, [facility] [id number] Univers 10:20:00 10:20:00 BALJIT ity [facility] 2020-08-06 2020-08-06 Outpatient R PATRICIO [facility] [id number] Univers 09:00:00 09:00:00 BALJIT itjay of [facility] 2020-08-01 2020-08-01 Outpatient R DE LA TORRE, [facility] [id number] Univers 10:00:00 10:00:00 MATEO itjay of [facility] 2020-07-18 2020-07-18 Outpatient R LAILA ORELLANA [facility] [id number] Univers 11:00:00 11:00:00 LAILA ORELLANA i ty [facility] 2020-07-17 2020-07-17 Outpatient R ROXANNEVIK [facility] [id number] Univers 12:00:00 12:00:00 ity of [facility] 2020-07-14 2020-07-14 Outpatient R NISA, [facility] [id number] Univers 10:45:00 10:45:00 WONDIFUL ity o f [facility] 2020-07-07 2020-07-07 Outpatient R MAKSIM [facility] [id number] Univers 08:30:00 08:30:00 AUBRIE jay [facility] 2020-06-27 2020-06-27 Outpatient R NISA [facility] [id number] Univers 15:15:00 15:15:00 WONDIFUL ity o f [facility] 2020-06-12 2020-06-12 Outpatient R MARBELLAKIMO [facility] [id number] Univers 15:45:00 15:45:00 AUBRIE [facility] 2020-06-05 2020-06-05 Outpatient R MOMO [facility] [id number] Univers 10:30:00 10:30:00 ISAC ity [facility] 2020-06-03 2020-06-03 Outpatient R ATUL [facility] [id number] Univers 09:00:00 09:00:00 SENDLARISSA ity [facility] 2020-05-16 2020-05-16 Outpatient R ROXANNEVIK [facility] [id number] Univers 16:30:00 16:30:00 ity [facility] 2020-05-09 2020-05-09 Outpatient R [facility] [id number] Univers 10:20:00 10:20:00 ity [facility] 2020-04-21 2020-04-21 Outpatient R ARGENIS, [facility] [id number] Univers 11:40:00 11:40:00 DORITA ity [facility] 2020-04-18 2020-04-18 Outpatient R ATUL, [facility] [id number] Univers 09:30:00 09:30:00 SENDLARISSA ity [facility] 2020-04-15 2020-04-15 Outpatient R [facility] [id number] Univers 10:20:00 10:20:00 ity of [facility] 2020-04-04 2020-04-04 Outpatient R [facility] [id number] Univers 10:00:00 10:00:00 ity of [facility] 2020-04-01 2020-04-01 Outpatient R [facility] [id number] Univers 08:00:00 08:00:00 ity [facility] 2020-03-20 2020-03-20 Outpatient R ROMARIO, [facility] [id number] Univers 10:00:00 10:00:00 FABRICIO [facility] 2020-03-10 2020-03-10 Outpatient R MIKAYLA, [facility] [id number] Univers 08:45:00 08:45:00 CL [facility] 2020-03-03 2020-03-03 Outpatient R MAKSIM, [facility] [id number] Univers 08:00:00 08:00:00 AUBRIE [facility] 2020-01-22 2020-01-22 Outpatient R MOMO [facility] [id number] Univers 15:45:00 15:45:00 ISAC [facility] 2020-01-22 2020-01-22 Outpatient R MOMO [facility] [id number] Univers 10:45[facility]00 [facility]:45[facility] 2020-01-18 Outpatient R SANJAY SÁNCHEZ [facility] [id number] Univers 11:30:00 11:30:00 ity [facility] 2020-01-11 2020-01-11 Outpatient R LAILA ORELLANA [facility] [id number] Univers 11:00:00 11:00:00 LAILA ORELLANA i [facility] 2020-01-10 2020-01-10 [facility] [id number] Univers 10:00:00 10:00:00 WONDIFUL ity o f [facility] 2020-01-04 2020-01-04 Outpatient R VIK OLIVEIRA [facility] [id number] Univers 11:30:00 11:30:00 [facility] 2020-01-01 2020-01-01 Outpatient R [facility] [id number] Univers 08:00:00 08:00:00 [facility] 2019-12-21 2019-12-21 [facility] [id number] Univers 09:30:00 09:30:00 WONDIFUL ity o f [facility] 2019-12-06 2019-12-06 [facility] [id number] Univers 11:00:00 11:00:00 FABRICIO [facility] 2019-11-30 2019-11-30 [facility] [id number] Univers 10:30:00 10:30:00 [facility] 2019-11-29 2019-11-29 [facility] [id number] Univers 08:15:00 08:15:00 [facility] 2019-11-23 2019-11-23 Outpatient R [facility] [id number] Univers 08:00:00 08:00:00 [facility] Results Test Description Test Time Test Comments Results Result Comments Source COMP. METABOLIC PANEL (63735) 2022-10-29 21:16:00 Test Item Value Reference Range Interpretation Comme nts NA (test code = 9001400059) 140 mmol/L 135-145 K (test code = 8114639281) 4.1 mmol/L 3.5-5.0 CL (test code = 9834283719) 108 mmol/L 98-108 CO2 TOTAL (test code = 7782504281) 25 mmol/L 23-31 AGAP (test code = 4659523735) 7 2-16 BUN (test code = 4853410839) 7 mg/dL 7-23 GLUCOSE (test code = 9649784302) 112 mg/dL 70-110 H CREATININE (test code = 0.96 mg/dL 0.50-1.04 4980933224) TOTAL BILI (test code = 0.8 mg/dL 0.1-1.5 1522297547) CALCIUM (test code = 6429444681) 8.1 mg/dL 8.6-10.6 L T PROTEIN (test code = 4449329320) 6.3 g/dL 6.3-8.2 ALBUMIN (test code = 1023746868) 4.2 g/dL 3.5-5.0 ALK PHOS (test code = 7639819270) 94 U/L 34-122 ALTv (test code = 1742-6) 28 U/L 5-35 AST(SGOT) (test code = 0738472126) 36 U/L 13-40 eGFR (test code = 5398603731) 61.8 mL/min/1.73m2 AREN (test code = AREN) Association of Glomerular Filtration Rate (GFR) and Staging of Kidney Disease* + +-------- + ------+| GFR (mL/min/1.73 m2) ?| With Kidney Damage ?| ?Without Kidney Damage+ +-- + +| ?>90 ?| ?Stage one ?| ? Normal ?+ +------- + -------+| ?60-89 ?| ?Stage two ?| ? Decreased GFR ? + +-------- + ------+| ?30-59 ?| ?Stage three ?| ? Stage three ? + +-------- + ------+| ?15-29 ?| ?Stage four ? | ? Stage four ?+ +------- + -------+| ?<15 (or dialysis) ? ?| ?Stage five ? | ? Stage five ?+ +------- + -------+ *Each stage assumes the associated GFR [...] or abnormalities in imaging tests). Lab Interpretation (test code = Abnormal 29757-5) [facility] WITH [id number] 21:11:40 Test Item Value Reference Range Interpretation Comments WBC (test code = 4.12 See_Comment L [Automated 6690-2) message] The sy stem which generated this result transmitted reference range : 4.30 - 11.10 10*3/?L. The reference range was not used to interpret this result as normal/abnormal . RBC (test code = 2.17 See_Comment L [Automated 789-8) message] The sy stem which generated this result transmitted reference range : 3.93 - 5.25 10*6/?L. The reference range was not used to interpret this result as normal/abnormal . HGB (test code = 7.1 g/dL 11.6-15.0 L 718-7) HCT (test code = 23.7 % 35.7-45.2 L 4544-3) MCV (test code = 109.2 fL 80.6-95.5 H 787-2) MCH (test code = 32.7 pg 25.9-32.8 785-6) MCHC (test code = 30.0 g/dL 31.6-35.1 L 786-4) RDW-SD (test code = 86.2 fL 39.0-49.9 H 70803-5) RDW-CV (test code = 22.4 % 12.0-15.5 H 788-0) PLT (test code = 151 See_Comment L [Automated 777-3) message] The sy stem which generated this result transmitted reference range : 166 - 358 10*3/ ?L. The reference r stefanie was not used to interpret this result as normal/abnormal . MPV (test code = 12.4 fL 9.5-12.9 10256-8) NRBC/100 WBC (test 0.0 See_Comment [Automat ed code = 4413132224) message] The system which generated this result transmitted reference range : 0.0 - 10.0 /100 WBCs. The refer ence range was not u sed to interpret th is result as normal/abnormal . NRBC x10^3 (test code See_Comment [Auto mated = 6006364174) message] The s ysteAltierre which generated this result transmitted reference range : 10*3/?L. The reference range was not used to interpret this result as normal/abnormal . GRAN MAT (NEUT) % 69.5 % (test code = 770-8) IMM GRAN % (test code 0.70 % = 0891656109) LYMPH % (test code = 19.9 % 736-9) MONO % (test code = 7.5 % 5905-5) EOS % (test code = 1.7 % 713-8) BASO % (test code = 0.7 % 706-2) GRAN MAT x10^3(ANC) 2.86 10*3/uL 1.88-7.09 (test code = 0274655324) IMM GRAN x10^3 (test 0.03 10*3/uL 0.00-0.06 code = 2798181200) LYMPH x10^3 (test code 0.82 10*3/uL 1.32-3.29 L = 731-0) MONO x10^3 (test code 0.31 10*3/uL 0.33-0.92 L = 742-7) EOS x10^3 (test code = 0.07 10*3/uL 0.03-0.39 711-2) BASO x10^3 (test code 0.03 10*3/uL 0.01-0.07 = 704-7) Lab Interpretation Abnormal (test code = 47491-9) [facility]$W/[id number] 10:00:00 Test Item Value Reference Range Interpretation Comments GLUCOSE-Q (test code 88 mg/dL 65-99 ? = 2345-7) Fasting referen ce interval UREA NITROGEN (BUN)-Q 14 mg/dL 7-25 (test code = 3094-0) CREATININE-Q (test 1.39 mg/dL 0.50-0.99 H code = 2160-0) EGFR-Q (test code = 47 See_Comment L The eGFR is based 31557-5) on the CKD-EPI 2020 equation. To calculate the n ew eGFR from a previous Creatinine or Cystatin Cresul t, go to [email or web address] ne y.org/professio na ls/kdoqi/gfr%5F ca lculator [Automated message] The system which generated this result transmitted reference range : > OR = 60 mL/min/1.73m2. The reference range was not used to interpr et this result as normal/abnormal . BUN/CREATININE 10 See_Comment [Automated RATIO-Q (test code = message ] The 3097-3) system which generated this result transmitted reference range : 6 - 22 (calc). The reference range was not used to interpr et this result as normal/abnormal . SODIUM-Q (test code = 139 mmol/L 283-354 4259-2) POTASSIUM-Q (test 3.5 mmol/L 3.5-5.3 code = 2823-3) CHLORIDE-Q (test code 105 mmol/L 98-110 = 2075-0) CARBON DIOXIDE-Q 23 mmol/L 20-32 (test code = 8-9) CALCIUM-Q (test code 8.9 mg/dL 8.6-10.2 = 23202-3) AREN (test code = AREN) PERFORMED BY [employer] [place]; [address] [place] [address]; LORRIE QUIROZ MD Lab Interpretation Abnormal (test code = 00596-2) [facility] [id number] 11:44:22 Test Item Value Reference Range Interpretation Comments POC-Glucose Meter (test 156 mg/dL 70-110 H : TE STED AT [facility] code = 1538) [address] [facility], 770 30: [employer]/Techni waylon ID = [id number] for SREE MARTINEZ Lab Interpretation (test Abnormal code = 90448-1) [facility] [id number] 11:44:22 Test Item Value Reference Range Interpretation Comments POC-GLUCOSE METER 156 mg/dL 70-110 H : TESTED A T [facility] [address] (BEAKER) (test code = [facility]Z [facility], 1538) 1986[address]: [employer]/Techni waylon ID = [id number] for SREE BLANCHARD POCT-GLUCOSE [id number] 08:01:18 Test Item Value Reference Range Interpretation Comments POC-GLUCOSE METER 116 mg/dL 70-110 H : TESTED A T [facility] (BEAKER) (test code = ROZ Brock [facility], 1538) 88958: [employer]/Techni waylon ID = [id number] for SREE BLANCHARD [id number] 05:04:32 Test Item Value Reference Range Interpretation Comments HAPTOGLOBIN (BEAKER) (test code = 30 mg/dL 14-258 366) [employer] ID - NICHELLE LLACTATE DEHYDROGENASE (LDH)2022-10-25 04:52:08 Test Item Value Reference Range Interpretation Comments LACTATE DEHYDROGENASE (BEAKER) (test 416 U/L 125-220 H code = 635) [employer] ID - NICHELLE [id number] 04:52:07 Test Item Value Reference Range Interpretation Comments MAGNESIUM (BEAKER) (test code = 2.0 mg/dL 1.6-2.6 627) [employer] ID - NICHELLE LHEPATIC FUNCTION [id number] 04:52:07 Test Item Value Reference Range Interpretation Comments TOTAL PROTEIN (BEAKER) (test code = 6.9 gm/dL 6.0-8.3 770) ALBUMIN (BEAKER) (test code = 1145) 4.5 g/dL 3.5-5.0 BILIRUBIN TOTAL (BEAKER) (test code 1.7 mg/dL 0.2-1.2 H = 377) BILIRUBIN DIRECT (BEAKER) (test 0.5 mg/dL 0.1-0.5 code = 706) ALKALINE PHOSPHATASE (BEAKER) (test 133 U/L 40-150 code = 346) AST (SGOT) (BEAKER) (test code = 20 U/L 5-34 353) ALT (SGPT) (BEAKER) (test code = 18 U/L 6-55 347) [employer] ID - NICHELLE LBASIC METABOLIC [id number] 04:52:06 Test Item Value Reference Range Interpretation Comments SODIUM (BEAKER) 138 meq/L 136-145 (test code = 381) POTASSIUM 3.3 meq/L 3.5-5.1 L (BEAKER) (test code = 379) CHLORIDE (BEAKER) 109 meq/L 98-107 H (test code = 382) CO2 (BEAKER) 17 meq/L 22-29 L (test code = 355) BLOOD UREA 12 mg/dL 7-21 NITROGEN (BEAKER) (test code = 354) CREATININE 1.30 mg/dL 0.57-1.25 H (BEAKER) (test code = 358) GLUCOSE RANDOM 114 mg/dL 70-105 H (BEAKER) (test code = 652) CALCIUM (BEAKER) 9.2 mg/dL 8.4-10.2 (test code = 697) EGFR (BEAKER) 50 Interpretatio n of eGFR (test code = mL/min/1.73 values Stage De scription 1092) sq m Result G1 Veronica l or high >=90 G2 Mildly decreased 60-89 G3a Mildl y to moderately 45-5 9 G3b Moderately to s everely 30-44 G4 Severl y decreased 15-29 G5 Kidney failure <15Reported eGF R is based on the CKD-EPI 2020 equation that d oes not use a race coefficientEsti mated GFR is not as accur ate as Creatinine Katelyn rachell in predicting glom erular filtration rate . Estimated GFR is not appl icable for dialysis patien ts [employer] ID - PIAYA LCBC W/PLT COUNT & AUTO [id number] 04:03:09 Test Item Value Reference Range Interpretation Comments WHITE BLOOD CELL COUNT (BEAKER) 7.9 K/ L 3.5-10.5 (test code = 775) RED BLOOD CELL COUNT (BEAKER) 1.85 M/ L 3.93-5.22 L (test code = 761) HEMOGLOBIN (BEAKER) (test code = 6.5 GM/DL 11.2-15.7 L 410) HEMATOCRIT (BEAKER) (test code = 20.7 % 34.1-44.9 L 411) MEAN CORPUSCULAR VOLUME (BEAKER) 112 fL 79-95 H (test code = 753) MEAN CORPUSCULAR HEMOGLOBIN 35.1 pg 25.6-32.2 H (BEAKER) (test code = 751) MEAN CORPUSCULAR HEMOGLOBIN CONC 31.4 GM/DL 32.2-35.5 L (BEAKER) (test code = 752) RED CELL DISTRIBUTION WIDTH 30.2 % 11.7-14.4 H (BEAKER) (test code = 412) PLATELET COUNT (BEAKER) (test 209 K/CU MM 150-450 code = 756) MEAN PLATELET VOLUME (BEAKER) 12.0 fL 9.4-12.3 (test code = 754) NUCLEATED RED BLOOD CELLS 1 /100 WBC 0-0 H (BEAKER) (test code = 413) NEUTROPHILS RELATIVE PERCENT 75 % (BEAKER) (test code = 429) LYMPHOCYTES RELATIVE PERCENT 15 % (BEAKER) (test code = 430) MONOCYTES RELATIVE PERCENT 8 % (BEAKER) (test code = 431) EOSINOPHILS RELATIVE PERCENT 0 % (BEAKER) (test code = 432) BASOPHILS RELATIVE PERCENT 0 % (BEAKER) (test code = 437) NEUTROPHILS ABSOLUTE COUNT 5.90 K/ L 1.56-6.13 (BEAKER) (test code = 670) LYMPHOCYTES ABSOLUTE COUNT 1.14 K/ L 1.18-3.74 L (BEAKER) (test code = 414) MONOCYTES ABSOLUTE COUNT (BEAKER) 0.60 K/ L 0.24-0.36 H (test code = 415) EOSINOPHILS ABSOLUTE COUNT 0.01 K/ L 0.04-0.36 L (BEAKER) (test code = 416) BASOPHILS ABSOLUTE COUNT (BEAKER) 0.02 K/ L 0.01-0.08 (test code = 417) IMMATURE GRANULOCYTES-RELATIVE 2.30 % 0.00-1.00 H PERCENT (BEAKER) (test code = 2801) RETICULOCYTE [id number] 04:03:06 Test Item Value Reference Range Interpretation Comments RETICULOCYTE COUNT PCT (BEAKER) (test 26.7 % 0.5-1.7 H code = 575) [employer] ID - [id number]-GLUCOSE [id number] 23:24:20 Test Item Value Reference Range Interpretation Comments POC-GLUCOSE METER 129 mg/dL 70-110 H : TESTED A T [facility] 6720 (BEAKER) (test code = [facility], 153) 715[address]: [employer]/Techni waylon ID = [id number] for ORIN BUTTS POCT-GLUCOSE [id number] 17:45:20 Test Item Value Reference Range Interpretation Comments POC-GLUCOSE METER 214 mg/dL 70-110 H : TESTED A T [facility] 6720 (BEAKER) (test code = [facility], 153) 55749: [employer]/Techni waylon ID = [id number] for JEAN MARIE WILFREDO, NAVI POCT-GLUCOSE [id number] 11:53:05 Test Item Value Reference Range Interpretation Comments POC-GLUCOSE METER 154 mg/dL 70-110 H : TESTED A T [facility] 6720 (BEAKER) (test code = ROZ [place], 1538) 13839: [employer]/Techni waylon ID = [id number] for NAVI LOWE POCT-GLUCOSE [id number] 07:48:48 Test Item Value Reference Range Interpretation Comments POC-GLUCOSE METER 116 mg/dL 70-110 H : TESTED A T [facility] 6720 (BEAKER) (test code = ROZ [place], 1538) 75[address]: [employer]/Techni waylon ID = [id number] for NAVI LOWE HEPATIC FUNCTION [id number] 04:05:23 Test Item Value Reference Range Interpretation Comments TOTAL PROTEIN (BEAKER) (test code = 7.0 gm/dL 6.0-8.3 770) ALBUMIN (BEAKER) (test code = 1145) 4.6 g/dL 3.5-5.0 BILIRUBIN TOTAL (BEAKER) (test code 2.4 mg/dL 0.2-1.2 H = 377) BILIRUBIN DIRECT (BEAKER) (test 0.7 mg/dL 0.1-0.5 H code = 706) ALKALINE PHOSPHATASE (BEAKER) (test 128 U/L 40-150 code = 346) AST (SGOT) (BEAKER) (test code = 21 U/L 5-34 353) ALT (SGPT) (BEAKER) (test code = 19 U/L 6-55 347) [employer] ID - NEELAM WSpecimen slightly ictericLACTATE DEHYDROGENASE (LDH) 2022-10-24 04:05:23 Test Item Value Reference Range Interpretation Comments LACTATE DEHYDROGENASE (BEAKER) (test 410 U/L 125-220 H code = 635) [employer] ID - NEELAM WC-REACTIVE [id number] 04:05:23 Test Item Value Reference Range Interpretation Comments C-REACTIVE PROTEIN (BEAKER) (test 0.38 mg/dL 0.00-0.50 code = 676) [employer] ID - NEELAM [id number] 04:05:22 Test Item Value Reference Range Interpretation Comments MAGNESIUM (BEAKER) (test code = 2.1 mg/dL 1.6-2.6 627) [employer] ID - NEELAM WBASIC METABOLIC [id number] 04:05:22 Test Item Value Reference Range Interpretation Comments SODIUM (BEAKER) 139 meq/L 136-145 (test code = 381) POTASSIUM 3.6 meq/L 3.5-5.1 (BEAKER) (test code = 379) CHLORIDE (BEAKER) 110 meq/L 98-107 H (test code = 382) CO2 (BEAKER) 22 meq/L 22-29 (test code = 355) BLOOD UREA 12 mg/dL 7-21 NITROGEN (BEAKER) (test code = 354) CREATININE 1.05 mg/dL 0.57-1.25 (BEAKER) (test code = 358) GLUCOSE RANDOM 113 mg/dL 70-105 H (BEAKER) (test code = 652) CALCIUM (BEAKER) 9.6 mg/dL 8.4-10.2 (test code = 697) EGFR (BEAKER) 65 Interpretatio n of eGFR (test code = mL/min/1.73 values Stage De scription 1092) sq m Result G1 Veronica l or high >=90 G2 Mildly decreased 60-89 G3a Mildl y to moderately 45-5 9 G3b Moderately to s everely 30-44 G4 Severl y decreased 15-29 G5 Kidney failure <15Reported eGF R is based on the CKD-EPI 2020 equation that d oes not use a race coefficientEsti mated GFR is not as accur ate as Creatinine Katelyn lovett in predicting glom erular filtration rate . Estimated GFR i s not applicable for dialysis patients [employer] ID - NEELAM WSpecimen slightly [id number] 04:00:05 Test Item Value Reference Range Interpretation Comments HAPTOGLOBIN (BEAKER) (test code = 15 mg/dL 14-258 366) [employer] ID - ADMINCBC W/PLT COUNT & AUTO [id number] 03:40:48 Test Item Value Reference Range Interpretation Comments WHITE BLOOD CELL COUNT (BEAKER) 7.0 K/ L 3.5-10.5 (test code = 775) RED BLOOD CELL COUNT (BEAKER) 1.82 M/ L 3.93-5.22 L (test code = 761) HEMOGLOBIN (BEAKER) (test code = 6.3 GM/DL 11.2-15.7 L 410) HEMATOCRIT (BEAKER) (test code = 20.1 % 34.1-44.9 L 411) MEAN CORPUSCULAR VOLUME (BEAKER) 110 fL 79-95 H (test code = 753) MEAN CORPUSCULAR HEMOGLOBIN 34.6 pg 25.6-32.2 H (BEAKER) (test code = 751) MEAN CORPUSCULAR HEMOGLOBIN CONC 31.3 GM/DL 32.2-35.5 L (BEAKER) (test code = 752) RED CELL DISTRIBUTION WIDTH 30.5 % 11.7-14.4 H (BEAKER) (test code = 412) PLATELET COUNT (BEAKER) (test 205 K/CU MM 150-450 code = 756) MEAN PLATELET VOLUME (BEAKER) 11.9 fL 9.4-12.3 (test code = 754) NUCLEATED RED BLOOD CELLS 1 /100 WBC 0-0 H (BEAKER) (test code = 413) NEUTROPHILS RELATIVE PERCENT 74 % (BEAKER) (test code = 429) LYMPHOCYTES RELATIVE PERCENT 16 % (BEAKER) (test code = 430) MONOCYTES RELATIVE PERCENT 7 % (BEAKER) (test code = 431) EOSINOPHILS RELATIVE PERCENT 0 % (BEAKER) (test code = 432) BASOPHILS RELATIVE PERCENT 0 % (BEAKER) (test code = 437) NEUTROPHILS ABSOLUTE COUNT 5.24 K/ L 1.56-6.13 (BEAKER) (test code = 670) LYMPHOCYTES ABSOLUTE COUNT 1.13 K/ L 1.18-3.74 L (BEAKER) (test code = 414) MONOCYTES ABSOLUTE COUNT (BEAKER) 0.49 K/ L 0.24-0.36 H (test code = 415) EOSINOPHILS ABSOLUTE COUNT 0.01 K/ L 0.04-0.36 L (BEAKER) (test code = 416) BASOPHILS ABSOLUTE COUNT (BEAKER) 0.02 K/ L 0.01-0.08 (test code = 417) IMMATURE GRANULOCYTES-RELATIVE 2.10 % 0.00-1.00 H PERCENT (BEAKER) (test code = 2801) RETICULOCYTE [id number] 03:40:45 Test Item Value Reference Range Interpretation Comments RETICULOCYTE COUNT PCT (BEAKER) (test 25.4 % 0.5-1.7 H code = 575) [employer] ID - [id number]-GLUCOSE [id number] 22:02:38 Test Item Value Reference Range Interpretation Comments POC-GLUCOSE METER 142 mg/dL 70-110 H : TESTED A T [facility] 6720 (BEAKER) (test code = [facility], 1538) 93162: [employer]/Techni waylon ID = [id number] for KEIRA BERG POCT-GLUCOSE [id number] 17:37:11 Test Item Value Reference Range Interpretation Comments POC-GLUCOSE METER 168 mg/dL 70-110 H : TESTED A T [facility] 6720 (BEAKER) (test code = [facility], 1538) 94687: [employer]/Techni waylon ID = [id number] for HECTOR LOWEA POCT-GLUCOSE [id number] 12:37:13 Test Item Value Reference Range Interpretation Comments POC-GLUCOSE METER 166 mg/dL 70-110 H : TESTED A T [facility] 6720 (BEAKER) (test code = [facility], 1538) 84687: [employer]/Techni waylon ID = [id number] for HECTOR LOWEA Antibody [id number] 12:29:00 Test Item Value Reference Range Interpretation Comments ANTIBODY ID WARM AUTO AB (RHEA) (test code = 2253) Antibody Consult SIGNED OUT A warm auto antibody is (test code = 2479) detected. The current specimen shows a positive ARNOLD wi th IgG (1+) and C3d (2 +) detected on cir culating RBCs and a posi tive eluate (2+) in a panreactive pat tern, consistent with a warm autoantibody. C old antibody screen is negative. The c ommonly encountered enzo or red cell alloantibo dies were excluded o n this workup after te sting with low ionic strength solution. RBCs with a positive ARNOLD ca n be expected to hav e decreased in vi vo survival. Clini cipriano correlation and monitoring for hemolysis is aguilar ggested. Should transfus ion be required, Rh an d [place] pheno-matched, crossmatch comp atible RBCs will be is sued. Electronic Sign ature: Vik Renae M.D. [facility] [id number] 09:38:23 Test Item Value Reference Range Interpretation Comments POC-GLUCOSE METER 112 mg/dL 70-110 H : TESTED A T [facility] 6720 (BEAKER) (test code = [place], 1538) [id number]: [employer]/Techni waylon ID = [id number] for NAVI LOWE HEMOGLOBIN [id number] 08:54:11 Test Item Value Reference Range Interpretation Comments HEMOGLOBIN A1C < % See_Comment [Automated m essage] ELECTROPHORESIS (BEAKER) The system which (test code = 3811) generated this result transmitted ref erence range: <=5.6%. The reference range was not used to int erpret this result as normal/abnormal . "The A1c is measured using a [facility]-certified method. HbA1c value equal to or greater than 6.5% as thediagnosis cutoff for diabetes. An HbA1c value of 5.7- 6.4% indicates increased risk for diabetes (prediabetes)."[employer] ID - ADM [id number] 05:49:52 Test Item Value Reference Range Interpretation Comments FERRITIN (BEAKER) (test code = 371.94 ng/mL 5.00-275.00 H 361) [employer] ID - NEIL [id number] 05:24:24 Test Item Value Reference Range Interpretation Comments HAPTOGLOBIN (BEAKER) (test code = < mg/dL 14-258 L 366) [employer] ID - ADMINC-REACTIVE [id number] 05:15:33 Test Item Value Reference Range Interpretation Comments C-REACTIVE PROTEIN (BEAKER) (test 0.67 mg/dL 0.00-0.50 H code = 676) [employer] ID - NEIL GHEPATIC FUNCTION [id number] 05:15:32 Test Item Value Reference Range Interpretation Comments TOTAL PROTEIN (BEAKER) (test code = 7.0 gm/dL 6.0-8.3 770) ALBUMIN (BEAKER) (test code = 1145) 4.6 g/dL 3.5-5.0 BILIRUBIN TOTAL (BEAKER) (test code 1.8 mg/dL 0.2-1.2 H = 377) BILIRUBIN DIRECT (BEAKER) (test 0.6 mg/dL 0.1-0.5 H code = 706) ALKALINE PHOSPHATASE (BEAKER) (test 127 U/L 40-150 code = 346) AST (SGOT) (BEAKER) (test code = 23 U/L 5-34 353) ALT (SGPT) (BEAKER) (test code = 20 U/L 6-55 347) [employer] ID - NEIL GLACTATE DEHYDROGENASE (LDH)2022-10-23 05:15:32 Test Item Value Reference Range Interpretation Comments LACTATE DEHYDROGENASE (BEAKER) (test 443 U/L 125-220 H code = 635) [employer] ID - NEIL GBASIC METABOLIC [id number] 05:15:31 Test Item Value Reference Range Interpretation Comments SODIUM (BEAKER) 139 meq/L 136-145 (test code = 381) POTASSIUM 4.0 meq/L 3.5-5.1 (BEAKER) (test code = 379) CHLORIDE (BEAKER) 110 meq/L 98-107 H (test code = 382) CO2 (BEAKER) 21 meq/L 22-29 L (test code = 355) BLOOD UREA 10 mg/dL 7-21 NITROGEN (BEAKER) (test code = 354) CREATININE 0.94 mg/dL 0.57-1.25 (BEAKER) (test code = 358) GLUCOSE RANDOM 132 mg/dL 70-105 H (BEAKER) (test code = 652) CALCIUM (BEAKER) 9.3 mg/dL 8.4-10.2 (test code = 697) EGFR (BEAKER) 74 Interpretatio n of eGFR (test code = mL/min/1.73 values Stage De scription 1092) sq m Result G1 Veronica l or high >=90 G2 Mildly decreased 60-89 G3a Mildl y to moderately 45-5 9 G3b Moderately to s everely 30-44 G4 Severl y decreased 15-29 G5 Kidney failure <15Reported eGF R is based on the CKD-EPI 2020 equation that d oes not use a race coefficientEsti mated GFR is not as accur ate as Creatinine Katelyn lovett in predicting glom erular filtration rate . Estimated GFR is not appl icable for dialysis patien ts [employer] ID - NEIL [id number] 05:15:31 Test Item Value Reference Range Interpretation Comments MAGNESIUM (BEAKER) (test code = 2.1 mg/dL 1.6-2.6 627) [employer] ID - NEIL GCBC W/PLT COUNT & AUTO [id number] 04:59:58 Test Item Value Reference Range Interpretation Comments WHITE BLOOD CELL COUNT (BEAKER) 5.6 K/ L 3.5-10.5 (test code = 775) RED BLOOD CELL COUNT (BEAKER) 1.74 M/ L 3.93-5.22 L (test code = 761) HEMOGLOBIN (BEAKER) (test code = 6.0 GM/DL 11.2-15.7 LL 410) HEMATOCRIT (BEAKER) (test code = 19.0 % 34.1-44.9 L 411) MEAN CORPUSCULAR VOLUME (BEAKER) 109 fL 79-95 H (test code = 753) MEAN CORPUSCULAR HEMOGLOBIN 34.5 pg 25.6-32.2 H (BEAKER) (test code = 751) MEAN CORPUSCULAR HEMOGLOBIN CONC 31.6 GM/DL 32.2-35.5 L (BEAKER) (test code = 752) RED CELL DISTRIBUTION WIDTH 30.9 % 11.7-14.4 H (BEAKER) (test code = 412) PLATELET COUNT (BEAKER) (test 221 K/CU MM 150-450 code = 756) MEAN PLATELET VOLUME (BEAKER) 11.9 fL 9.4-12.3 (test code = 754) NUCLEATED RED BLOOD CELLS 1 /100 WBC 0-0 H (BEAKER) (test code = 413) NEUTROPHILS RELATIVE PERCENT 82 % (BEAKER) (test code = 429) LYMPHOCYTES RELATIVE PERCENT 13 % (BEAKER) (test code = 430) MONOCYTES RELATIVE PERCENT 3 % (BEAKER) (test code = 431) EOSINOPHILS RELATIVE PERCENT 0 % (BEAKER) (test code = 432) BASOPHILS RELATIVE PERCENT 0 % (BEAKER) (test code = 437) NEUTROPHILS ABSOLUTE COUNT 4.63 K/ L 1.56-6.13 (BEAKER) (test code = 670) LYMPHOCYTES ABSOLUTE COUNT 0.71 K/ L 1.18-3.74 L (BEAKER) (test code = 414) MONOCYTES ABSOLUTE COUNT (BEAKER) 0.17 K/ L 0.24-0.36 L (test code = 415) EOSINOPHILS ABSOLUTE COUNT 0.00 K/ L 0.04-0.36 L (BEAKER) (test code = 416) BASOPHILS ABSOLUTE COUNT (BEAKER) 0.02 K/ L 0.01-0.08 (test code = 417) IMMATURE GRANULOCYTES-RELATIVE 1.60 % 0.00-1.00 H PERCENT (RHEA) (test code = 2801) RETICULOCYTE [id number] 04:59:04 Test Item Value Reference Range Interpretation Comments RETICULOCYTE COUNT PCT (RHEA) (test 25.8 % 0.5-1.7 H code = 575) [employer] ID - [id number] ID - [id number]-GLUCOSE [id number] 22:53:45 Test Item Value Reference Range Interpretation Comments POC-GLUCOSE METER 161 mg/dL 70-110 H : TESTED A T [facility] 6720 (RHEA) (test code = ROZ Gutiérrez [facility], 1538) [address]: [employer]/Techni waylon ID = [id number] for DA UPHIN, TREVOR RAD, ABDOMEN/KUB, 1 VIEW [id number] 20:13:00Reason for exam:->abd pain [facility] : 1975 Sex: FFINAL REPORT Abdomen x-ray Clinical Diagnosis: Abdominal painComparison: NoneViews: Three supine views of abdomen obtained. Findings/impression:Please note that the examination islimited secondary to patient's body habitus. Bowel gas pattern is nonspecific but appears nonobstructive. Cholecystectomy clips noted within the right upper quadrant. No acute osseous abnormality is dariela ntified. Signed: Matt Weaver Verified Date/Time: 10/22/2022 20:13:39 D-DIMER 2022-10-22 17:02:14 Test Item Value Reference Range Interpretation Comments D-DIMER QUANTITATIVE (BEAKER) 0.75 MG/L FEU <0.50 H (test code = 671) Intended Use: The D-Dimer Assay can be used to aid in the diagnosis of Deep Vein Thrombosis (DVT) and Pulmonary Embolism Disease (PED).In patients with low pre- test probability, various studies concerning STA Liatest D-dimer test have reported that with a cutoff value of 0.50 MG/L FEU, the Negative Predictive Value (NPV) regarding the exclusion of thrombosis is within 95-100% range. PERIPHERAL BLOOD SMEAR - HOLD [id number] 13:47:13 Test Item Value Reference Range Interpretation Comments PERIPHERAL SMEAR SAVE Saved 1 slide at 1346 (BEAKER) (test code = 1815) [id number] 12:57:37 Test Item Value Reference Range Interpretation Comments HAPTOGLOBIN (BEAKER) (test code = < mg/dL 14-258 L 366) [employer] ID - ADMINVITAMIN [id number] 12:33:39 Test Item Value Reference Range Interpretation Comments VITAMIN B12 (BEAKER) (test code = 1532 pg/mL 213-816 H 774) [employer] ID - [id number] 12:33:39 Test Item Value Reference Range Interpretation Comments FERRITIN (BEAKER) (test code = 418.77 ng/mL 5.00-275.00 H 361) [employer] ID - [id number] 12:15:37 Test Item Value Reference Range Interpretation Comments MAGNESIUM (BEAKER) (test code = 2.0 mg/dL 1.6-2.6 627) [employer] ID - ADMINBILIRUBIN, [id number] 12:15:37 Test Item Value Reference Range Interpretation Comments BILIRUBIN DIRECT (BEAKER) (test 0.6 mg/dL 0.1-0.5 H code = 706) [employer] ID - ADMINLACTATE DEHYDROGENASE (LDH)2022-10-22 12:15:37 Test Item Value Reference Range Interpretation Comments LACTATE DEHYDROGENASE (BEAKER) (test 460 U/L 125-220 H code = 635) [employer] ID - ADMINCOMPREHENSIVE METABOLIC [id number] 12:15:36 Test Item Value Reference Range Interpretation Comments TOTAL PROTEIN 6.7 gm/dL 6.0-8.3 (BEAKER) (test code = 770) ALBUMIN (BEAKER) 4.3 g/dL 3.5-5.0 (test code = 1145) ALKALINE 135 U/L 40-150 PHOSPHATASE (BEAKER) (test code = 346) BILIRUBIN TOTAL 2.0 mg/dL 0.2-1.2 H (BEAKER) (test code = 377) SODIUM (BEAKER) 138 meq/L 136-145 (test code = 381) POTASSIUM (BEAKER) 3.7 meq/L 3.5-5.1 (test code = 379) CHLORIDE (BEAKER) 109 meq/L 98-107 H (test code = 382) CO2 (BEAKER) (test 23 meq/L 22-29 code = 355) BLOOD UREA 14 mg/dL 7-21 NITROGEN (BEAKER) (test code = 354) CREATININE 1.05 mg/dL 0.57-1.25 (BEAKER) (test code = 358) GLUCOSE RANDOM 119 mg/dL 70-105 H (BEAKER) (test code = 652) CALCIUM (BEAKER) 9.0 mg/dL 8.4-10.2 (test code = 697) AST (SGOT) 28 U/L 5-34 (BEAKER) (test code = 353) ALT (SGPT) 17 U/L 6-55 (BEAKER) (test code = 347) EGFR (BEAKER) 65 Interpretatio n of eGFR (test code = 1092) mL/min/1.[address] age Description sq m Result G1 Veronica l or high >=90 G2 Mildly decreased 60-89 G3a Mildl y to moderately 45-5 9 G3b Moderately to s everely 30-44 G4 Severl y decreased 15-29 G5 Kidney failure <15Reported eGF R is based on the CKD-EPI 202 equation that d oes not use a race coefficientEsti mated GFR is not as accur ate as Creatinine Katelyn rachell in predicting glom erular filtration rate . Estimated GFR is not appl icable for dialysis patien ts [employer] ID - ADMINIRON, TIBC, % SAT. (WITHOUT FERRITIN)2022-10-22 12:07:17 Test Item Value Reference Range Interpretation Comments IRON (BEAKER) (test code = 547) 86.0 ug/dL 40.0-160.0 TOTAL IRON BINDING CAPACITY 306 ug/dL 250-450 (BEAKER) (test code = 769) IRON % SATURATION (2) (BEAKER) 28 % 20-55 (test code = 2590) [employer] ID - ADMINRETICULOCYTE [id number] 12:06:15 Test Item Value Reference Range Interpretation Comments RETICULOCYTE COUNT PCT (BEAKER) (test 24.8 % 0.5-1.7 H code = 575) [employer] ID - [id number] ID - [id number] 12:02:33 Test Item Value Reference Range Interpretation Comments PROTIME (BEAKER) (test 14.2 seconds 11.9-14.2 code = 759) INR (BEAKER) (test 1.12 See_Comment [Automat ed code = 370) message] The sy stem which generated this result transmitted reference range : <=5.90. The reference range was not used to interpret this result as normal/abnormal . PARTIAL THROMBOPLASTIN 24.3 seconds 22.5-36.0 TIME (BEAKER) (test code = 760) RECOMMENDED COUMADIN/WARFARIN INR THERAPY RANGESSTANDARD DOSE: 2.0 - 3.0 Includes: PROPHYLAXIS for venous thrombosis, systemic embolization; TREATMENT for venous thrombosis and/or pulmonary embolus.HIGH RISK: Target INR is 2.5-3.5 for patients with mechanical heart valves.CBC W/PLT COUNT & AUTO [id number] 12:00:27 Test Item Value Reference Range Interpretation Comments WHITE BLOOD CELL COUNT (BEAKER) 4.4 K/ L 3.5-10.5 (test code = 775) RED BLOOD CELL COUNT (BEAKER) 1.44 M/ L 3.93-5.22 L (test code = 761) HEMOGLOBIN (BEAKER) (test code = 5.0 GM/DL 11.2-15.7 LL 410) HEMATOCRIT (BEAKER) (test code = 15.6 % 34.1-44.9 L 411) MEAN CORPUSCULAR VOLUME (BEAKER) 108 fL 79-95 H (test code = 753) MEAN CORPUSCULAR HEMOGLOBIN 34.7 pg 25.6-32.2 H (BEAKER) (test code = 751) MEAN CORPUSCULAR HEMOGLOBIN CONC 32.1 GM/DL 32.2-35.5 L (BEAKER) (test code = 752) RED CELL DISTRIBUTION WIDTH 30.5 % 11.7-14.4 H (BEAKER) (test code = 412) PLATELET COUNT (BEAKER) (test 186 K/CU MM 150-450 code = 756) MEAN PLATELET VOLUME (BEAKER) 11.6 fL 9.4-12.3 (test code = 754) NUCLEATED RED BLOOD CELLS 1 /100 WBC 0-0 H (BEAKER) (test code = 413) NEUTROPHILS RELATIVE PERCENT 75 % (BEAKER) (test code = 429) LYMPHOCYTES RELATIVE PERCENT 17 % (BEAKER) (test code = 430) MONOCYTES RELATIVE PERCENT 6 % (BEAKER) (test code = 431) EOSINOPHILS RELATIVE PERCENT 1 % (BEAKER) (test code = 432) BASOPHILS RELATIVE PERCENT 1 % (BEAKER) (test code = 437) NEUTROPHILS ABSOLUTE COUNT 3.28 K/ L 1.56-6.13 (BEAKER) (test code = 670) LYMPHOCYTES ABSOLUTE COUNT 0.74 K/ L 1.18-3.74 L (BEAKER) (test code = 414) MONOCYTES ABSOLUTE COUNT (BEAKER) 0.26 K/ L 0.24-0.36 (test code = 415) EOSINOPHILS ABSOLUTE COUNT 0.05 K/ L 0.04-0.36 (BEAKER) (test code = 416) BASOPHILS ABSOLUTE COUNT (BEAKER) 0.03 K/ L 0.01-0.08 (test code = 417) IMMATURE GRANULOCYTES-RELATIVE 0.90 % 0.00-1.00 PERCENT (BEAKER) (test code = 2801) [id number] 11:58:50 Test Item Value Reference Range Interpretation Comments FIBRINOGEN LEVEL (BEAKER) (test 285 mg/dl 225-434 code = 658) THYROID STIMULATING [id number] 04:51:23 Test Item Value Reference Range Interpretation Comments TSH (test code = See_Comment Biotin has been [id number]) reported to cau se a negative bias, interpret resul ts relative to pat ient's use of biotin. [Automated mess age] The system [employer] generated this result transmitted ref erence range: 0.45 - 4 .70 mIU/L. The refe rence range was not u sed to interpret this result as normal/abnor mal. Lab Interpretation (test Normal code = 35781-8) [facility] [id number] 04:26:53 Test Item Value Reference Range Interpretation Comments FREE T4 (test code = See_Comment [Autom ated message] [id number]) The system [employer] generated this result transmitted ref erence range: 0.78 - 2 .20 ng/dL:. The ref erence range was not u sed to interpret this result as normal/abnor mal. Lab Interpretation (test Normal code = 50652-5) [facility]. METABOLIC PANEL (57230)2022-10-18 23:04:17 Test Item Value Reference Range Interpretation Comments NA (test code = 141 mmol/L 135-145 4004426132) K (test code = 5.1 mmol/L 3.5-5.0 H 6944824031) CL (test code = 109 mmol/L 98-108 H 7348058582) CO2 TOTAL (test code = 21 mmol/L 23-31 L 2569808108) AGAP (test code = 2-16 5490698345) BUN (test code = 7 mg/dL 7-23 8184624826) GLUCOSE (test code = 104 mg/dL 70-110 3274071350) CREATININE (test code = 1.41 mg/dL 0.50-1.04 H 7705435449) TOTAL BILI (test code = 0.8 mg/dL 0.1-1.9 1508681830) CALCIUM (test code = 9.1 mg/dL 8.6-10.6 4515975533) T PROTEIN (test code = 7.5 g/dL 6.3-8.2 6066301309) ALBUMIN (test code = 5.0 g/dL 3.5-5.0 9402545523) ALK PHOS (test code = 139 U/L 34-122 H 9822236536) ALTv (test code = 28 U/L 5-35 1742-6) AST(SGOT) (test code = 34 U/L 13-40 9368532705) eGFR (test code = mL/min/1.73m2 8936858310) AREN (test code = AREN) Association of [...] tests). Lab Interpretation Abnormal (test code = 38619-6) [facility] Test Item Value Reference Range Interpretation Comments LIPASE (test code = 6638205383) 97 U/L 0-220 Lab Interpretation (test code = Normal 37703-6) [facility] WITH [id number] 22:34:52 Test Item Value Reference Range Interpretation Comments WBC (test code = See_Comment L [Automated 4125-2) message] The sy stem which generated this result transmitted reference range : 4.30 - 11.10 10*3/?L. The reference range was not used to interpret this result as normal/abnormal . RBC (test code = See_Comment L [Automated 408-8) message] The sy stem which generated this [...] (test code = 76.8 fL 39.0-49.9 H 26598-9) RDW-CV (test code = 22.1 % 12.0-15.5 H 788-0) PLT (test code = See_Comment [Automated 777-3) message] The sy stem which generated this result transmitted reference range : 166 - 358 10*3/ ?L. The reference r stefanie was not used to interpret this result as normal/abnormal . MPV (test code = 12.4 fL 9.5-12.9 33095-8) NRBC/100 WBC (test See_Comment [Automat ed code = 8258086878) message] The system which generated this result transmitted reference range : 0.0 - 10.0 /100 WBCs. The refer ence range was not u sed to interpret th is result as normal/abnormal . NRBC x10^3 (test code See_Comment [Auto mated = 8795683850) message] The s ystem which generated this result transmitted reference range : 10*3/?L. The reference range was not used to interpret this result as normal/abnormal . GRAN MAT (NEUT) % 63.1 % (test code = 770-8) IMM GRAN % (test code 1.30 % = 7789498725) LYMPH % (test code = 26.3 % 736-9) MONO % (test code = 6.4 % 5905-5) EOS % (test code = 2.1 % 713-8) BASO % (test code = 0.8 % 706-2) GRAN MAT x10^3(ANC) 2.45 10*3/uL 1.88-7.09 (test code = 4108324713) IMM GRAN x10^3 (test 0.05 10*3/uL 0.00-0.06 code = 5181125649) LYMPH x10^3 (test code 1.02 10*3/uL 1.32-3.29 L = 731-0) MONO x10^3 (test code 0.25 10*3/uL 0.33-0.92 L = 742-7) EOS x10^3 (test code = 0.08 10*3/uL 0.03-0.39 711-2) BASO x10^3 (test code 0.03 10*3/uL 0.01-0.07 = 704-7) Lab Interpretation Abnormal (test code = 64325-3) [facility] [id number] 22:15:00 Test Item Value Reference Range Interpretation Comments POCT PREG (test code = 1605) NEgative On board controls acceptable with C pass Line (test code = 3574) POCT PREG LOT # (test code = 3575) [id number] POCT PREG TEST DATE (test code = 3576) Lab Interpretation (test code = Normal 08263-3) [facility] URINALYSIS, [id number] 16:16:00 Test Item Value Reference Range Interpretation [...] APPEAR (test code slightly cloudy = 3267) [facility] URINALYSIS, [id number] 16:16:00 Test Item Value Reference Range Interpretation [...] APPEAR (test code slightly cloudy = 3267) [facility] HEMOGLOBIN A1C [id number] 14:54:00 Test Item Value Reference Range Interpretation Comments POCT HBA1C (test code = 4548-4) 4.6 % 4-6 [facility] HEMOGLOBIN A1C [id number] 14:54:00 Test Item Value Reference Range Interpretation Comments POCT HBA1C (test code = 4548-4) 4.6 % 4-6 [facility] GLUCOSE (AUTOMATED)2022-03-02 13:11:54 Test Item Value Reference Range Interpretation Comments POCT GLU (test code = 3313192116) 137 mg/dL 70-110 H Lab Interpretation (test code = Abnormal 21924-6) [facility] GLUCOSE (AUTOMATED)2022-03-02 13:11:54 Test Item Value Reference Range Interpretation Comments POCT GLU (test code = 1615678284) 137 mg/dL 70-110 H Lab Interpretation (test code = Abnormal 30390-0) [facility] [id number] 12:59:00 Test Item Value Reference Range Interpretation Comments POCT Glu (age>30days) (test code = 137 mg/dL 70-110 A 3342) Lab Interpretation (test code = Abnormal 41665-7) [facility] [id number] 12:59:00 Test Item Value Reference Range Interpretation Comments POCT Glu (age>30days) (test code = 137 mg/dL 70-110 A 3342) Lab Interpretation (test code = Abnormal 77178-4) [facility] [id number] 12:48:00 Test Item Value Reference Range Interpretation Comments POCT PREG (test code = 1605) Negative On board controls acceptable with Yes C Line (test code = 3574) POCT PREG LOT # (test code = 3575) [id number] POCT PREG TEST DATE (test 2023-06-25 code = 3576) [facility] [id number] 12:48:00 Test Item Value Reference Range Interpretation Comments POCT PREG (test code = 1605) Negative On board controls acceptable with Yes C Line (test code = 3574) POCT PREG LOT # (test code = 3575) [id number] POCT PREG TEST DATE (test 2023-06-25 code = 3576) [facility]
[2022-10-30 05:39] VITALS: TEMP 98.7
[2022-10-30 05:42] VITALS: BP 121/76; O2SAT 96
== END 2022-10-30 04:57 | disposition home or self-care (01) ==
LOC: ER 03:12
DX: N39.0 Urinary tract infection, site not specified (principal); I10 Essential (primary) hypertension; E11.9 Type 2 diabetes mellitus without complications; Z88.1 Allergy status to other antibiotic agents; Z88.5 Allergy status to narcotic agent; Z88.8 Allergy status to other drugs, medicaments and biological substances
CPT/HCPCS: 87088; 85025; 87086; 36415; 81015; 83690; 80053; J2405; 96374; 96375; 99284

== ENCOUNTER 2022-11-04 16:59 | Emergency (ER) | payer OTHER ==
--- OUTSIDE RECORDS SUMMARY | 2022-11-04 17:42 | XMS REPORT | Continuity of Care Document ---
:1975 Author Organization [facility] t Address [address] [place] [address] Care Team Providers Name Role Phone TRAY JOLLY Primary Care Physician Unavailable CECILE MÁRQUEZ Attending Clinician Unavailable TRAY JOLLY Attending Clinician Unavailable BEVERLY CORNELIUS Attending Clinician Unavailable NAV ANTONIO Attending Clinician Unavailable Tray Jolly MD Attending Clinician SHENA PEREA Attending Clinician Unavailable Shena Perea DO Attending Clinician Osmar Araujo MD Attending Clinician Vik Ellison LMSW Attending Clinician OSMAR ARAUJO Attending Clinician Unavailable Lisandro Dailey MD Attending Clinician Livia Brady MD Attending Clinician Pantera Navarro MD Attending Clinician PANTERA NAVARRO Attending Clinician Unavailable RENETTA ANTHONYJerrica AZAR Attending Clinician Unavailable Kvng Stark RN Attending Clinician Unavailable Louis JOHNS, Kemal Packer Attending Clinician Lazaro HOLLINS, Geovanny Attending Clinician Keri HOLLINS, Vicki Weinstein Attending Clinician Vern Bernardo DO Attending Clinician [phone], [facility] Attending Clinician Unavailable Adryan JOHNS, Beverly Attending Clinician ARNOLDO ELIZABETH Attending Clinician Unavailable Doctor Unassigned, [place] Attending Clinician Unavailable LAYNE YI Attending Clinician Unavailable CHANDANA WALSH Attending Clinician Unavailable DESTINY ONEILL Attending Clinician Unavailable Destiny Oneill MD Attending Clinician Alida FERNANDO, Melony Truong Attending Clinician Unavailable Nisa HOLLINS, Andrea Adams Attending Clinician Cecile Márquez MD Attending Clinician BERRY ZHAO Attending Clinician Unavailable Misty WHITE METAL CORROSION PROOFER, Berry Attending Clinician MATEO DE LA TORRE Attending Clinician Unavailable STELLA WORLEY Attending Clinician Unavailable STELLA WORLEY Attending Clinician Unavailable Nurse, Ry Carbajal Attending Clinician Unavailable SANJAY SÁNCHEZ Attending Clinician Unavailable CLAU AGUILAR Attending Clinician Unavailable VIK OLIVEIRA Attending Clinician Unavailable Atul HOLLINS, Ricardo K.HGabe Attending Clinician ISAC BARR Attending Clinician Unavailable Sheri Berrios MD Attending Clinician SHERI BERRIOS Attending Clinician Unavailable Vik Oliveira MD Attending Clinician CAPRICE HENRIQUEZ Attending Clinician Unavailable Elliot FERNANDO, Young Attending Clinician Unavailable Isac Barney Attending Clinician Mateo De La Torre MD Attending Clinician Arnoldo Elizabeth MD Attending Clinician Genesis Roman LMSW Attending Clinician GABRIELLA SALAS Attending Clinician Unavailable ANDREA PAULA Attending Clinician Unavailable Sanjay Sánchez NP Attending Clinician Corry Woodall Attending Clinician CORRY COON Attending Clinician Unavailable Caprice Henriquez MD Attending Clinician Caprice Ozuna RN Attending Clinician Unavailable Pob, [facility] Attending Clinician Unavailable Jorge Edmondson Attending Clinician Unavailable SHORTY YU Attending Clinician Unavailable Kautz_S Attending Clinician Unavailable Emily Garcia MA Attending [...] ROGE TENORIO Attending Clinician Unavailable RICARDO POLLARD K.HGabe Attending Clinician Unavailable MARCELINA VALERA Attending Clinician Unavailable MARCELINA VALERA Attending Clinician Unavailable TAMMY LINDO Attending Clinician Unavailable LIANA JOSEPH Attending Clinician Unavailable LAKISHA MAN Attending Clinician Unavailable SHANTI DUCKWORTH Attending Clinician Unavailable BALJIT CURRY Attending Clinician Unavailable AUBRIE SCHAEFFER Attending Clinician Unavailable DORITA MORE Attending Clinician Unavailable FABIRCIO DOSS Attending Clinician Unavailable CL DEGROOT Attending [...] Number Effective Date Expiration Date S ewa [facility] DUAL [id number] 2021 COMP CHOICE PPO 00:00:00 DSNP [facility] STAR PLUS [id number] 2021 00:00:00 MEDICAID [facility] [id number] 2016 00:00:00 Stellarray [id number] 2022 00:00:00 DEVOTED HEALTH DAYHR8 2021 (MEDICARE 00:00:00 REPLACEMENT HMO) [employer] [id number] 2020 BEHAVIORAL 00:00:00 SOLUTIONS Problems Condition Condition Condition Status Onset Resolution Last Treating Co mments Source Name Details Category Date Date Treatment Clinician Date Intellectu Intellectu Disease Active [facility]25 [facility] disability disability 00:00: Me dical 00 Center 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 00:00: Medical 00 Center Migraines Migraines Disease Active Uni vers 1-24 ity of 00:00: [place] 00 Medical Branch Allergic Allergic Disease Active Unive rs rhinitis rhinitis 24 ity of 00:00: [place] 00 Medical Branch (HFpEF) (HFpEF) Disease Active Univers heart heart 10-18 ity of failure failure 00:00: [place] with with 00 Medical preserved preserved Bran [...] 1-20 ity of abdominal abdominal 00:00: [place] pain pain 00 Medical Branch Incontinen [...] diarrhea diarrhea 1-20 ity of 00:00: [place] [facility] Allergy, Allergy, Disease Active 2021-09 Unive rs subsequent subsequent 2-09 it y of encounter encounter 00:00: [place] [...] ity of fundus fundus 00:00: Medical Branch 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 Added automatic ally from request for surgery [id number] Chronic Chronic Disease Active Overview: Univ ers superficia superficia 4-05 Formattin ity of l l 00:00: g of this [place] gastritis gastritis 00 note Medi cipriano without without might be Branch bleeding bleeding different from the original. Added automatic ally from request for surgery [id number] Hyperplast Hyperplast Disease Active Overview : Univers ic polyps ic polyps 4-05 Formattin i ty of of stomach of stomach 00:00: g of this 00 note Medical might be Branch different from the original. Added automatic ally from request for surgery [id number] Indigestio Indigestio Disease Active 2020-09 Overview : Univers n n 2-15 Formattin ity of 00:00: g of this [place] 00 note Medical might be Branch different from the original. Added automatic ally from request for surgery [id number] Bloating Bloating Disease Active 2020-09 Overview: Un jerrod 2-15 Formattin ity of 00:00: g of this [place] 00 note Medical might be Branch different from the original. Added automatic ally from request for surgery [id number] Dental Dental Disease Active Univers caries caries [...] of right right 00:00: [place] [facility] Gastroesop Gastroesop Disease Active 2016-09 [...] Active Uni vers 7-10 ity of 00:00: [place] [facility] Asthma, Asthma, Disease Active Univers mild mild 5-23 ity of persistent persistent 00:00: [place] [facility] [place] Fatty Fatty Disease Active Univers liver liver 3-24 ity of 00:00: [place] [facility] Hepatomega Hepatomega Disease Active U nivers ly ly 3-24 ity of 00:00: [place] [facility] Obesity Obesity Disease Active Univers (BMI (BMI 2-12 ity of 30-39.9) 30-39.9) 00:00: [place] [facility] Sinus Sinus Disease Active Univers tachycardi tachycardi 1-02 it y of a a 00:00: [place] [facility] Dyslipidem Dyslipidem Disease Active 2015-09 U nivers ia ia 1-22 ity of 00:00: [place] [facility] Vitamin Vitamin Disease Active 2015-09 Univers B12 B12 1-10 ity of deficiency deficiency 00:00: [place] [facility] 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 6-09 ity of 00:00: [place] [facility] Abnormal Abnormal Disease Active Unive rs uterine uterine 5-23 ity of bleeding bleeding 00:00: [place] [facility] Submucous Submucous Disease Active Uni vers leiomyoma leiomyoma 5-23 ity of of uterus of [place] 00:[place] [facility] [place] NSAID NSAID Disease Active Univers long-term long-term 2-16 ity of use use 00:00: [place] [facility] History of History of Disease [...] [place] [facility] Essential Essential Disease Active 2016-0 Uni vers hypertensi hypertensi 2-05 it y of on, benign on, benign 00:[place] 00 [facility] Well woman Well woman Disease Active U nivers exam exam 2-05 ity of 00:00: [place] 00 [facility] Chest pain Chest pain Disease Active U nivers 9-13 ity of 00:00: [place] 00 [facility] Peripheral Peripheral Disease Active U nivers neuropathy neuropathy it y of [facility] 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 ity of [facility] PCOS PCOS Disease Active Univers (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 But pt still eats it. TOMATO DRUG Active Low Other-Cmnt Univer s INGREDI 04-03 ity of 00:00: [place] 00 [facility] Branch CODEINE Allergy Active Low Itching [facility] Center Codeine Drug Active Itching [facility] All[facility] 1[facility]17 [facility] 00:[facility]: Medical 00 Center Codeine Propensi Active Itching Univer s ty to 1-17 ity of adverse 00:00: [place] reaction 00 [facility] Branch CODEINE DRUG Active Low ITCHING 2017- Univers INGREDI 1-17 ity of 00:00: [place] 00 Medical Branch LORAZEPA Allergy Active High Swelling 2016-09 [facility] 00[facility] Medical 00 Center Lorazepa Drug Active Swelling 2016-09 Hard to [facility] m Allergy 0-02 swallow [facility] 00:[facility]: Medical 00 Center Lorazepa Propensi Active Swelling 2016-09 Hard to Uni vers m ty to 0-02 swallow ity of adverse 00:00: [place] reaction 00 Medical s Branch LORAZEPA DRUG Active High Swelling 2017-1 Univer s M INGREDI 0-02 ity of 00:00: [place] 00 Medical Branch DIPHENHY Allergy Active High Swelling 2017-0 [facility] DRAMINE 7-18 [facility] HCL 00:00: Medical 00 Center Diphenhy Drug Active Swelling 2017-[address] dramine Allergy 7-18 [facility] Hcl 00:00: Medical 00 Center Diphenhy Propensi Active Swelling 2017-0 Univ ers dramine ty to 7-18 ity of Hcl adverse 00:00: [place] reaction 00 Medical s Branch DIPHENHY DRUG Active High Swelling 2017-0 Univer s DRAMINE INGREDI 7-18 ity of HCL 00:00: [place] 00 Medical Branch BENZONAT Allergy Active High Swelling 2017-0 [facility] ATE 2- [facility] 00:[facility]: Medical 00 Center Benzonat Drug Active Swelling 2017-[address] ate Allergy 2-09 in [facility] 00:00: throat, Medical 00 difficult Center y swallowin g and breathing Benzonat Propensi Active Swelling 2017-0 Tightness U nivers ate ty to 2-09 in ity of adverse 00:00: throat, [place] reaction 00 difficult Medic al s to y Branch drug swallowin g and breathing BENZONAT DRUG Active High Swelling 2017-0 Univer s ATE INGREDI 2-09 ity of 00:00: [place] 00 Medical Branch MECLIZIN Allergy Active High Anaphylaxis 2017-[address] [facility] - [facility] 00:[facility]: Medical 00 Center Meclizin Drug Active Anaphylaxis 2017-[address] e Allergy -23 [facility] 00:00: Medical 00 Center Meclizin Propensi Active Anaphylaxis 2017-0 U nivers e ty to 1-23 ity of adverse 00:00: [place] reaction 00 Medical s Branch MECLIZIN DRUG Active High Anaphylaxis 2017-0 Uni vers E INGREDI - ity of 00:00: [place] 00 Medical Branch AMOXICIL Allergy Active High Hives 2014-[address] [facility] FRANCA 9-04 [facility] 00:[facility]: Medical 00 Center MEPERIDI Allergy Active High 2014-[address] [facility] [facility] HCL 9-04 [facility] 00:00: Medical 00 Center ZIPRASID Allergy Active High Hives 2014-[address] ONE HCL 9-04 [facility] 00:00: Medical 00 Center Meperidi Drug Active Severe 2015-[address] ne Hcl Allergy 05-30 reaction( [facility] 00:00: s): Medical 00 Hallucina Center tions Ziprasid Drug Active Hives 2014-[address] one Hcl Allergy 05-30 [facility] 00:00: Medical 00 Center Amoxicil Drug Active Hives 2015-[address] franca Allergy 05-30 [facility] 00:00: Medical 00 Center Amoxicil Propensi [...] Source History SDOH Social Unive rsity of [facility] Med ical Together Branch History SDOH Social Unive rsity of [facility] Branch History SDOH Social Unive rsity of [facility] Medical Membership Branch History SDOH Social Unive rsity of [facility] Medical Meetings Branch History SDOH [facility] Alcohol Std Drinks Medica l Center History SDOH [facility] Alcohol Binge Medical Navin ter History SDOH [facility] Alcohol Comment Medical C enter Exposure to 2022-10-19 2022-10-29 Not sure University of SARS-CoV-2 (event) 00:00:00 14:20:00 [facility] Tobacco use and 2022-10-22 2022-10-[address] [facility] [facility] exposure 00:00:00 00:00:00 Medical Center Alcohol intake 2022-10-22 2022-10-[address] [facility] 00:00:00 00:00:00 non-drinker Medical Cente r (finding) History SDSC 2022-10-22 2022-10-[address] [facility] Alcohol Frequency 00:00:00 00:00:00 Medical Center History SDSC Social 2022-10-19 2022-10-19 5 Unive rsity of Connections Phone 00:00:00 00:00:00 [facility] edical Branch History SDSC Social 2022-10-19 2022-10-19 7 Unive rsity of Connections Living 00:00:00 00:00:00 [place] [facility] History SDOH 2022-10-19 2022-10-19 0 University o f Physical Activity 00:00:00 00:00:00 [facility] DPW Branch History [facility] 2022-10-19 2022-10-19 0 University o f Physical Activity 00:00:00 00:00:00 [facility] MPS Branch History SDSC 2022-10-19 2022-10-19 4 University o f Financial 00:00:00 00:00:00 [place] [facility] History SDSC Food 2022-10-19 2022-10-19 1 Univers ity of Worry 00:00:00 00:00:00 [place] [facility] History SDSC Food 2022-10-19 2022-10-19 1 Univers ity of Scarcity 00:00:00 00:00:00 [place] [facility] History SDSC 2022-10-19 2022-10-19 2 University o f Transport Med 00:00:00 00:00:00 [place] Medic al Branch History SDSC 2022-10-19 2022-10-19 2 University o f Transport Non-Med 00:00:00 00:00:00 [facility] Branch Tobacco Comment 2022-06-17 2022-06-17 10 years ago Univers ity of 00:00:00 00:00:00 [facility] Cigarettes smoked 2022-06-17 2022-06-17 Univers ity of current (pack per 00:00:00 00:00:00 [facility] day) - Reported Branch Cigarette 2022-06-17 2022-06-17 University of pack-years 00:00:00 00:00:00 [facility] History of tobacco 1982-10-20 2007-10-20 Cigarette Smoker University of use 00:00:00 00:00:00 [facility] Sex Assigned At [address] [facility] 00:00:00 00:00:00 Medical Center Smoking Status Start Date Stop Date Source Never smoker [facility] Ex-smoker 2022-06-17 00:00:00 2022-06-17 00:00:00 [facility] Medications Ordered Filled Start Stop Current Ordering Indication Dosage Frequency Signature Comments Components Source Medication Medication Date Date Medication? Clinician (SIG) Name Name CYANOCOBALA Yes [id number] INJECT 1 Univers MIN 1,000 2-07 ML ity of mcg/mL 00:00: INTRAMUSCU [place] injection 00 LARLY Medical EVERY TWO Branch WEEKS semaglutide Yes [id number] Inject Univers (OZEMPIC) 2-07 0.25 mg ity of 0.25 mg or 00:00: [place] the [place] 0.5 mg(2 00 skin Medical mg/1.5 mL) weekly. Branch PnIj CYANOCOBALA Yes [id number] INJECT 1 Univers MIN 1,000 2-07 ML ity of mcg/mL 00:00: INTRAMUSCU [place] injection 00 LARLY Medical EVERY TWO Branch WEEKS semaglutide Yes [id number] Inject Univers (OZEMPIC) 2-07 0.25 mg ity of 0.25 mg or 00:00: [place] the [place] 0.5 mg(2 00 skin Medical mg/1.5 mL) weekly. Branch PnIj polyethylen 0 Yes 17g Q.5D Take [address] e glycol 1-30 by mouth 2 [facility] (GLYCOLAX) 14:26: (two) Medica l 17 gram 13 times Center packet daily. lactulose 0 Yes 30g Q.5D Take 30 g [facility] [...] tablet hours as needed for Nausea. sucralfate 2022-0 Yes 1g Q.5D Take [address] (CARAFATE) 1-30 by mouth 2 Olga es 1 gram 14:26: (two) Medical tablet 13 times Center daily. pantoprazol 2022-0 Yes 40mg Take [address] e 1-30 by mouth 2 [facility] (PROTONIX) 14:26: (two) Medica l 20 MG 13 times Center tablet daily with breakfast and dinner. SUMAtriptan 2022-0 Yes 50mg Take [address] (IMITREX) 1-30 by mouth [facility] 50 MG 14:26: as needed Medical tablet 13 for Center Headaches or Migraine. busPIRone 2022-0 Yes 20mg Q.5D Take [address] (BUSPAR) 10 1-30 by mouth 2 [facility]ilda kes MG tablet 14:26: (two) Medical 13 times Center daily. metoclopram 2022-0 Yes 10mg Take [address] dariela HCl 1-30 by mouth 4 [facility] (REGLAN) 10 14:26: (four) Medi cipriano MG tablet 13 times Center daily before meals and nightly. montelukast 2022-0 Yes 10mg Take [address] (SINGULAIR) 1-30 by mouth Luke s 10 mg 14:26: in the Medical tablet 13 morning. Center cyanocobala 0 Yes 1000ug Inject [facility] min 1-30 1,000 mcg [facility] (VITAMIN 14:26: intramuscu Med ical B-12) 1,000 13 larly once Ce nter mcg/mL every 2 injection weeks. levothyroxi 0 Yes 50ug Take [address] ne 1-30 mcg by [facility]ukes (SYNTHROID, 14:26: mouth Medic al LEVOTHROID) 13 Every Center 50 MCG morning on tablet an empty stomach. dilTIAZem 2022-0 Yes 120mg Q.5D Take [address] (DILACOR 1-30 mg by [facility]ukes XR) 120 MG 14:26: mouth 2 Medi cipriano 24 hr 13 (two) Center capsule times daily. fluticasone 2022-0 Yes 2{puff} Inhale [address] propion-yana 1-30 puffs by Luke s meteroL 14:26: mouth via Medic al (ADVAIR) 13 inhaler Center 100-50 every 12 mcg/dose (twelve) diskus hours. inhaler rosuvastati 2022-0 Yes 10mg QD Take [address] n (CRESTOR) 1-30 by mouth Luke s 10 MG 14:26: daily. Medical tablet 13 Center losartan 2022-0 Yes 50mg Take [address] (COZAAR) 50 1-30 by mouth 2 [facility]ilda kes MG tablet 14:26: (two) Medical 13 times Center daily before meals. ascorbic 2022-0 Yes 1000mg QD Take 1,[address] acid, 1-30 mg by [facility]ukes vitamin C, 14:26: mouth Medica l (ascorbic 13 daily. Center acid with derrell hips) 1000 MG tablet citalopram 2022-0 Yes 40mg QD Take [address] (CeleXA) 40 1-30 by mouth Luke s MG tablet 14:26: daily. Medica l 13 Center topiramate 2022-0 Yes 50mg Q.5D Take [address] (TOPAMAX) 1-30 by mouth 2 Luke s 25 MG 14:26: (two) Medical tablet 13 times Center daily. polyethylen 2022-0 Yes 17g Q.5D Take [address] e glycol 1-30 by mouth 2 [facility] (GLYCOLAX) 14:26: (two) Medica l 17 gram 13 times Center packet daily. lactulose 2022-0 Yes 30g Q.5D Take [address] (CHRONULAC) 1-30 by mouth 2 [facility] kes 10 gram/15 14:26: (two) Medica l mL (15 mL) 13 times Center solution daily. ondansetron 2022-0 Yes 4mg Take [address] (ZOFRAN-ODT 1-30 by mouth Luke s ) 4 MG 14:26: every 8 Medical disintegrat 13 (eight) Cente r ing tablet hours as needed for Nausea. sucralfate 2022-0 Yes 1g Q.5D Take [address] (CARAFATE) 1-30 by mouth 2 Olga es 1 gram 14:26: (two) Medical tablet 13 times Center daily. pantoprazol 3-0 Yes 40mg Take [address] e 1-30 by mouth 2 [facility]ukes (PROTONIX) 14:26: (two) Medica l 20 MG 13 times Center tablet daily with breakfast and dinner. SUMAtriptan 0 Yes 50mg Take [address] (IMITREX) 1-30 by mouth [facility] 50 MG 14:26: as needed Medical tablet 13 for Center Headaches or Migraine. busPIRone 2022-0 Yes 20mg Q.5D Take [address] (BUSPAR) 10 1-30 by mouth 2 [facility]ilda kes MG tablet 14:26: (two) Medical 13 times Center daily. metoclopram 0 Yes 10mg Take [address] dariela HCl 1-30 by mouth 4 [facility] (REGLAN) 10 14:26: (four) Medi cipriano MG tablet 13 times Center daily before meals and nightly. montelukast 0 Yes 10mg Take [address] (SINGULAIR) 1-30 by mouth Luke s 10 mg 14:26: in the Medical tablet 13 morning. Center cyanocobala 0 Yes 1000ug Inject [facility] min 1-30 1,000 mcg [facility] (VITAMIN 14:26: intramuscu Med ical B-12) 1,000 13 larly once Ce nter mcg/mL every 2 injection weeks. levothyroxi Yes 50ug Take [address] ne 1-30 mcg by [facility]ukes (SYNTHROID, 14:26: mouth Medic al LEVOTHROID) 13 Every Center 50 MCG morning on tablet an empty stomach. dilTIAZem 0 Yes 120mg Q.5D Take [address] (DILACOR 1-30 mg by [facility]ukes XR) 120 MG 14:26: mouth 2 Medi cipriano 24 hr 13 (two) Center capsule times daily. fluticasone 0 Yes 2{puff} Inhale [address] propion-yana [...] 13 times Center daily before meals. ascorbic 0 Yes 1000mg QD Take 1,[address] acid, 1-30 mg by [facility] vitamin C, 14:26: mouth Medica l (ascorbic 13 daily. Center acid with derrell hips) 1000 MG tablet citalopram 0 Yes 40mg QD Take 40 mg C [...] First dose [place] mg 00 on [facility] 10/19/22 at Branch 2100, Until Discontinu ed, Routine lactulose Yes 30mL 30 mL, Univer s (CEPHULAC) 10-20 Oral, BID, ity of solution 30 02:00: First dose [place] mL 00 (after Medical last Branch modificati on) on 10/19/22 at 2000, Until Discontinu ed, Routine SUMAtriptan 2022- No 50mg 50 mg, Uni vers (IMITREX) 10-19 Oral, ity of tablet 50 20:15: 21:00 ONCE, 1 [place] mg 00 :00 dose, On [facility] 10/19/22 at 1415, Routine NaCl 0.9% 2022- No 500mL at 999 Univ ers (NS) bolus 10-19- mL/hr, 500 it y of infusion 19:30: 18:59 mL, IV [place] 500 mL 00 :00 Piggyback, Medical ONCE, 1 Branch dose, On [facility] 10/19/22 at 1330, STAT MULTIVIT Yes Take by Univer s &MINERALS/F -24 mouth. ity of ERROUS FUM 17:49: [place] (MULTI 09 Medical VITAMIN Branch ORAL) METHYLCELLU Yes Univer s LOSE (FIBER 1-24 ity of THERAPY 17:49: [facility]) Medical Branch DOCUSATE Yes Take by Univer s SODIUM 1-24 mouth. ity of (COLACE 17:49: [place] ORAL) 09 Medical Branch vitamin C Yes 1000mg Take 1,000 Univers with derrell 1-24 mg by ity of hips 1,000 17:49: mouth [place] mg tablet 09 daily. Medical Branch CRANBERRY Yes Take by Unive rs FRUIT 1-24 mouth ity of EXTRACT 17:49: daily. [place] (CRANBERRY 09 Medical ORAL) Branch MULTIVIT Yes Take by Univer s &MINERALS/F 1-24 mouth. ity of ERROUS FUM 17:49: [place] (MULTI 09 Medical VITAMIN Branch ORAL) METHYLCELLU Yes Univer s LOSE (FIBER 1-24 ity of THERAPY 17:49: [facility]) 09 Medical Branch DOCUSATE Yes Take by Univer s SODIUM 1-24 mouth. ity of (COLACE 17:49: [place] ORAL) Medical Branch vitamin C Yes 1000mg Take 1,000 Univers with derrell 1-24 mg by ity of hips 1,000 17:49: mouth [place] mg tablet 09 daily. Medical Branch CRANBERRY Yes Take by Unive rs FRUIT 1-24 mouth ity of EXTRACT 17:49: daily. [place] (CRANBERRY 09 Medical ORAL) Branch MULTIVIT Yes Take by Univer s &MINERALS/F 1-24 mouth. ity of ERROUS FUM 17:49: [place] (MULTI 09 Medical VITAMIN Branch ORAL) METHYLCELLU Yes Univer s LOSE (FIBER 1-24 ity of THERAPY 17:49: [facility]) Medical Branch DOCUSATE Yes Take by Univer s SODIUM 1-24 mouth. ity of (COLACE 17:49: [place] ORAL) 09 Medical Branch vitamin C Yes 1000mg Take 1,000 Univers with derrell 1-24 mg by ity of hips 1,000 17:49: mouth [place] mg tablet 09 daily. Medical Branch CRANBERRY Yes Take by Unive rs FRUIT 1-24 mouth ity of EXTRACT 17:49: daily. [place] (CRANBERRY 09 Medical ORAL) Branch MULTIVIT Yes Take by Univer s &MINERALS/F 1-24 mouth. ity of ERROUS FUM 17:49: [place] (MULTI 09 Medical VITAMIN Branch ORAL) METHYLCELLU Yes Univer s LOSE (FIBER 1-24 ity of THERAPY 17:49: [facility]) Medical Branch DOCUSATE Yes Take by Univer s SODIUM 1-24 mouth. ity of (COLACE 17:49: [place] ORAL) [address] [place] [address] Branch vitamin C Yes 1000mg Take 1,000 Univers with derrell 1-24 mg by ity of hips 1,000 17:49: mouth [place] mg tablet 09 daily. Medical Branch CRANBERRY Yes Take by Unive rs FRUIT 1-24 mouth ity of EXTRACT 17:49: daily. [place] (CRANBERRY 09 Medical ORAL) [place] MULTIVIT Yes Take by Univer s &MINERALS/F 1-24 mouth. ity of ERROUS FUM 17:49: [place] ([facility] 09 Medical VITAMIN Branch ORAL) METHYLCELLU Yes Univer s LOSE (FIBER 1-24 ity of THERAPY 17:49: [facility]) [address] [place] [address] Branch DOCUSATE Yes Take by Univer s SODIUM 1-24 mouth. ity of (COLACE 17:49: [place] ORAL) [address] [place] [address] Branch vitamin C Yes 1000mg Take 1,000 Univers with derrell 1-24 mg by ity of hips 1,000 17:49: mouth [place] mg tablet 09 daily. [facility] Branch CRANBERRY Yes Take by Unive rs FRUIT 1-24 mouth ity of EXTRACT 17:49: daily. [place] (CRANBERRY 09 Medical ORAL) [place] MULTIVIT Yes Take by Univer s &MINERALS/F 1-24 mouth. ity of ERROUS FUM 17:49: [place] (MULTI 09 Medical VITAMIN Branch ORAL) METHYLCELLU Yes Univer s LOSE (FIBER 1-24 ity of THERAPY 17:49: [facility]) [address] [place] [address] Branch DOCUSATE Yes Take by Univer s SODIUM 1-24 mouth. ity of (COLACE 17:49: [place] ORAL) Medical Branch vitamin C Yes 1000mg Take 1,000 [facility] with derrell 1-24 mg by ity of hips 1,000 17:49: mouth [place] mg tablet 09 daily. Medical Branch CRANBERRY Yes Take by Unive rs FRUIT 1-24 mouth ity of EXTRACT 17:49: daily. [place] (CRANBERRY 09 Medical ORAL) Branch MULTIVIT Yes Take by Univer s &MINERALS/F 1-24 mouth. ity of ERROUS FUM 17:49: [place] (MULTI 09 Medical VITAMIN Branch ORAL) METHYLCELLU [...] 1-24 mouth ity of EXTRACT 17:49: daily. [place] (CRANBERRY 09 Medical ORAL) Branch MULTIVIT Yes Take by Univer s &MINERALS/F 1-24 mouth. ity of ERROUS FUM 17:49: [place] ([facility] 09 Medical VITAMIN Branch ORAL) METHYLCELLU [...] 1-24 mouth ity of EXTRACT 17:49: daily. [place] (CRANBERRY 09 Medical ORAL) Branch MULTIVIT Yes Take by Univer s &MINERALS/F 1-24 mouth. ity of ERROUS FUM 17:49: [place] (MULTI 09 Medical VITAMIN Branch ORAL) METHYLCELLU [...] 1-24 mouth ity of EXTRACT 17:49: daily. [place] (CRANBERRY 09 Medical ORAL) Branch MULTIVIT Yes Take by Univer s &MINERALS/F 1-24 mouth. ity of ERROUS FUM 17:49: [place] (MULTI 09 Medical VITAMIN Branch ORAL) METHYLCELLU Yes Univer s LOSE (FIBER 1-24 ity of THERAPY 17:49: [place] MISC) Medical Branch DOCUSATE Yes Take by Univer s SODIUM 1-24 mouth. ity of (COLACE 17:49: [place] ORAL) Medical Branch vitamin C Yes 1000mg Take 1,000 Univers with derrell 1-24 mg by ity of hips 1,000 17:49: mouth [place] mg tablet 09 daily. Medical Branch CRANBERRY Yes Take by Unive rs FRUIT 1-24 mouth ity of EXTRACT 17:49: daily. [place] (CRANBERRY 09 Medical ORAL) Branch MULTIVIT Yes Take by Univer s &MINERALS/F 1-24 mouth. ity of ERROUS FUM 17:49: [place] ([place] [address] Medical VITAMIN Branch ORAL) METHYLCELLU Yes Univer s LOSE (FIBER 1-24 ity of THERAPY 17:49: [place] MISC) Medical Branch DOCUSATE Yes Take by Univer s SODIUM 1-24 mouth. ity of (COLACE 17:49: [place] ORAL) Medical Branch vitamin C Yes 1000mg Take 1,000 [facility] with derrell 1-24 mg by ity of hips 1,000 17:49: mouth [place] mg tablet 09 daily. Medical Branch CRANBERRY Yes Take by Unive rs FRUIT 1-24 mouth ity of EXTRACT 17:49: daily. [place] (CRANBERRY 09 Medical ORAL) Branch MULTIVIT Yes Take by Univer s &MINERALS/F 1-24 mouth. ity of ERROUS FUM 17:49: [place] (MULTI 09 Medical VITAMIN Branch ORAL) METHYLCELLU Yes Univer s LOSE (FIBER 1-24 ity of THERAPY 17:49: [facility]) Medical Branch DOCUSATE Yes Take by Univer s SODIUM 1-24 mouth. ity of (COLACE 17:49: [place] ORAL) 09 Medical Branch vitamin C Yes 1000mg Take 1,000 Univers with derrell 1-24 mg by ity of hips 1,000 17:49: mouth [place] mg tablet 09 daily. Medical Branch CRANBERRY Yes Take by Unive rs FRUIT 1-24 mouth ity of EXTRACT 17:49: daily. [place] (CRANBERRY 09 Medical ORAL) Branch MULTIVIT Yes Take by Univer s &MINERALS/F 1-24 mouth. ity of ERROUS FUM 17:49: [place] ([facility] 09 Medical VITAMIN Branch ORAL) METHYLCELLU Yes Univer s LOSE (FIBER 1-24 ity of THERAPY 17:49: [facility]) Medical Branch DOCUSATE Yes Take by Univer s SODIUM 1-24 mouth. ity of (COLACE 17:49: [place] ORAL) 09 Medical Branch vitamin C Yes 1000mg Take 1,000 Univers with derrell 1-24 mg by ity of hips 1,000 17:49: mouth [place] mg tablet 09 daily. Medical Branch CRANBERRY Yes Take by Unive rs FRUIT 1-24 mouth ity of EXTRACT 17:49: daily. [place] (CRANBERRY 09 Medical ORAL) Branch MULTIVIT Yes Take by Unive rs &MINERALS/F 1-24 mouth. ity of ERROUS FUM 17:49: [place] ([place] [address] Medical VITAMIN Branch ORAL) METHYLCELLU Yes Univer s LOSE (FIBER 1-24 ity of THERAPY 17:49: [facility]) Medical Branch DOCUSATE Yes Take by Univer s SODIUM 1-24 mouth. ity of (COLACE 17:49: [place] ORAL) Medical Branch vitamin C Yes 1000mg Take 1,000 Univers with derrell 1-24 mg by ity of hips 1,000 17:49: mouth [place] mg tablet 09 daily. Medical Branch CRANBERRY Yes Take by Unive rs FRUIT 1-24 mouth ity of EXTRACT 17:49: daily. [place] (CRANBERRY 09 Medical ORAL) Branch MULTIVIT Yes Take by Univer s &MINERALS/F 1-24 mouth. ity of ERROUS FUM 17:49: [place] (MULTI 09 Medical VITAMIN Branch ORAL) METHYLCELLU Yes Univer s LOSE (FIBER 1-24 ity of THERAPY 17:49: [facility]) Medical Branch DOCUSATE Yes Take by Univer s SODIUM 1-24 mouth. ity of (COLACE 17:49: [place] ORAL) Medical Branch vitamin C Yes 1000mg Take 1,000 Univers with derrell 1-24 mg by ity of hips 1,000 17:49: mouth [place] mg tablet 09 daily. Medical Branch CRANBERRY Yes Take by Unive rs FRUIT 1-24 mouth ity of EXTRACT 17:49: daily. [place] (CRANBERRY 09 Medical ORAL) Branch MULTIVIT Yes Take by Univer s &MINERALS/F 1-24 mouth. ity of ERROUS FUM 17:49: [place] ([facility] 09 Medical VITAMIN Branch ORAL) METHYLCELLU Yes Univer s LOSE (FIBER 1-24 ity of THERAPY 17:49: [facility]) [address] [place] [address] Branch DOCUSATE Yes Take by Univer s SODIUM 1-24 mouth. ity of (COLACE 17:49: [place] ORAL) [address] [place] [address] Branch vitamin C Yes 1000mg Take 1,000 Univers with derrell 1-24 mg by ity of hips 1,000 17:49: mouth [place] mg tablet 09 daily. Medical Branch CRANBERRY Yes Take by Unive rs FRUIT 1-24 mouth ity of EXTRACT 17:49: daily. [place] (CRANBERRY 09 Medical ORAL) Branch MULTIVIT Yes Take by Univer s &MINERALS/F 1-24 mouth. ity of ERROUS FUM 17:49: [place] (MULTI 09 Medical VITAMIN Branch ORAL) METHYLCELLU Yes Univer s LOSE (FIBER 1-24 ity of THERAPY 17:49: [facility]) Medical Branch DOCUSATE Yes Take by Univer s SODIUM 1-24 mouth. ity of (COLACE 17:49: [place] ORAL) [address] [place] [address] Branch vitamin C Yes 1000mg Take 1,000 Univers with derrell 1-24 mg by ity of hips 1,000 17:49: mouth [place] mg tablet 09 daily. Medical Branch CRANBERRY Yes Take by Unive rs FRUIT 1-24 mouth ity of EXTRACT 17:49: daily. [place] (CRANBERRY 09 Medical ORAL) Branch MULTIVIT Yes Take by Univer s &MINERALS/F 1-24 mouth. ity of ERROUS FUM 17:49: [place] (MULTI 09 Medical VITAMIN Branch ORAL) METHYLCELLU Yes Univer s LOSE (FIBER 1-24 ity of THERAPY 17:49: [place] MISC) 09 Medical Branch DOCUSATE Yes Take by Univer s SODIUM 1-24 mouth. ity of (COLACE 17:49: [place] ORAL) 09 [facility] Branch vitamin C Yes 1000mg Take 1,000 Univers with derrell 1-24 mg by ity of hips 1,000 17:49: mouth [place] mg tablet 09 daily. Medical Branch CRANBERRY Yes Take by Unive rs FRUIT 1-24 mouth ity of EXTRACT 17:49: daily. [place] (CRANBERRY 09 Medical ORAL) Branch MULTIVIT Yes Take by Univer s &MINERALS/F 1-24 mouth. ity of ERROUS FUM 17:49: [place] (MULTI 09 Medical VITAMIN Branch ORAL) METHYLCELLU Yes Univer s LOSE (FIBER 1-24 ity of THERAPY 17:49: [place] MISC) [address] [place] [address] Branch DOCUSATE Yes Take by Univer s SODIUM 1-24 mouth. ity of (COLACE 17:49: [place] ORAL) [address] [place] [address] Branch vitamin C Yes 1000mg Take 1,000 [facility] with derrell 1-24 mg by ity of hips 1,000 17:49: mouth [place] mg tablet 09 daily. Medical Branch CRANBERRY Yes Take by Unive rs FRUIT 1-24 mouth ity of EXTRACT 17:49: daily. [place] (CRANBERRY 09 Medical ORAL) Branch MULTIVIT Yes Take by Univer s &MINERALS/F 1-24 mouth. ity of ERROUS FUM 17:49: [place] (MULTI 09 Medical VITAMIN Branch ORAL) METHYLCELLU 0 Yes Univer s LOSE (FIBER 1-24 ity [...] 1-24 mouth ity of EXTRACT 17:49: daily. [place] (CRANBERRY 09 Medical ORAL) Branch MULTIVIT Yes Take by Univer s &MINERALS/F 1-24 mouth. ity of ERROUS FUM 17:49: [place] (MULTI 09 Medical VITAMIN Branch ORAL) METHYLCELLU Yes Univer s LOSE (FIBER 1-24 ity of THERAPY 17:49: [facility]) Medical Branch DOCUSATE Yes Take by Univer s SODIUM 1-24 mouth. ity of (COLACE 17:49: [place] ORAL) Medical Branch vitamin C Yes 1000mg Take 1,000 Univers with derrell 1-24 mg by ity of hips 1,000 17:49: mouth [place] mg tablet 09 daily. Medical Branch CRANBERRY Yes Take by Unive rs FRUIT 1-24 mouth ity of EXTRACT 17:49: daily. [place] (CRANBERRY 09 Medical ORAL) Branch MULTIVIT Yes Take by Univer s &MINERALS/F 1-24 mouth. ity of ERROUS FUM 17:49: [place] (MULTI 09 Medical VITAMIN Branch ORAL) METHYLCELLU Yes Univer s LOSE (FIBER 1-24 ity of THERAPY 17:49: [facility]) Medical Branch DOCUSATE Yes Take by Univer s SODIUM 1-24 mouth. ity of (COLACE 17:49: [place] ORAL) Medical Branch vitamin C Yes 1000mg Take 1,000 Univers with derrell 1-24 mg by ity of hips 1,000 17:49: mouth [place] mg tablet 09 daily. Medical Branch CRANBERRY Yes Take by Unive rs FRUIT 1-24 mouth ity of EXTRACT 17:49: daily. [place] (CRANBERRY 09 Medical ORAL) Branch MULTIVIT 2023-0 Yes Take by Univer s &MINERALS/F 1-24 mouth. ity of ERROUS FUM 17:49: [place] (MULTI Medical VITAMIN Branch ORAL) METHYLCELLU Yes Univer s LOSE (FIBER -24 ity of THERAPY 17:49: [place] MISC) [facility] Branch DOCUSATE Yes Take by Univer s SODIUM -24 mouth. ity of (COLACE 17:49: [place] ORAL) [facility] vitamin C Yes 1000mg Take 1,000 Univers with derrell 1-24 mg by ity of hips 1,000 17:49: mouth [place] mg tablet 09 daily. [facility] Branch CRANBERRY Yes Take by [facility] rs FRUIT -24 mouth ity of EXTRACT 17:49: daily. [place] (CRANBERRY Medical ORAL) [place] polyethylen Yes 17g 17 g, Unive rs e glycol -24 Oral, BID, ity o f 3350 powder 16:45: First dose [place] 17 g 00 on [facility] 10/19/22 at Branch 1045, Until Discontinu ed, Routine pantoprazol Yes 40mg 40 mg, Univ ers e 124 Oral, BID, ity of (PROTONIX) 16:15: First dose [place] 2 mg/mL 00 on [facility] oral 10/19/22 at Branch suspension 1015, 40 mg Until Discontinu ed, Routine montelukast Yes 10mg 10 mg, Univ ers (SINGULAIR) 24 Oral, ity of tablet 10 15:00: DAILY, [place] mg 00 First dose Medical on [facility] 10/19/22 at 0900, Until Discontinu ed, Routine citalopram Yes 40mg 40 mg, Unive rs (CELEXA) 24 Oral, ity of tablet 40 15:00: DAILY, [place] mg 00 First dose Medical on [facility] 10/19/22 at 0900, Until Discontinu ed, Routine losartan 0 Yes 50mg 50 mg, Univers (COZAAR) 1-24 Oral, BID, ity o f tablet 50 14:00: First dose [place] mg 00 on [facility] 10/19/22 at Branch 0800, Until Discontinu ed, Routine fluticasone 2023-0 Yes 2{puff} 2 Puff, Univers propionate 10-19 Inhalation ity of (FLOVENT) 14:00: , Q12H, [...] 0800, Until Discontinu ed, Routine FOLIC ACID 2022-2022- No Take by Uni vers ORAL 10-19 mouth ity of 13:15: 00:00 daily. [place] 59 :00 Medical Branch cholecalcif 0 2022- No 1000U Take 1,000 Univers edmar, 10-19 Units by ity of vitamin D3, 13:15: 00:00 [place] 25 mcg 59 :00 daily. Medical (1,000 Branch unit) tablet CALCIUM 2022-0 2022- No Take by Univer s ORAL 10-19 mouth ity of 13:15: 00:00 daily. [place] 59 :00 Medical Branch DOCOSAHEXAN 2022-0 2022- No 1000mg Take 1,000 Univers OIC 10-19 mg by ity of ACID/EPA 13:15: 00:00 mouth [place] (FISH OIL 59 :00 daily. Medical ORAL) Branch BIOTIN ORAL 2022-0 2022- No Take by Un jerrod 10-19 mouth. ity of 13:15: 00:00 [place] 59 :00 Medical Branch FOLIC ACID 2022-0 2022- No Take by Uni vers ORAL 10-19 mouth ity of 13:15: 00:00 daily. [place] 59 :00 Medical Branch cholecalcif 2022-0 3- No 1000U Take 1,000 Univers edmar, 10-19 Units by ity of vitamin D3, 13:15: 00:00 mouth [place] 25 mcg 59 :00 daily. Medical (1,000 Branch unit) tablet CALCIUM 2022-0 2022- No Take by [facility] s ORAL 10-19 mouth ity of 13:15: [...] 10-19 mouth ity of 13:15: 00:00 daily. [place] 59 :00 Medical Branch cholecalcif 2022- No 1000U Take 1,000 Univers edmar, 10-19 Units by ity of vitamin D3, 13:15: 00:00 [place] 25 mcg 59 :00 daily. Medical (1,000 Branch unit) tablet CALCIUM 0 2022- No Take by [facility] s ORAL 10-19 mouth ity of 13:15: 00:00 daily. [place] 59 :00 Medical Branch DOCOSAHEXAN 2022- No 1000mg Take 1,000 Univers OIC 10-19 mg by ity of ACID/EPA 13:15: 00:00 mouth [place] (FISH OIL 59 :00 daily. Medical ORAL) Branch BIOTIN ORAL 0 2022- No Take by Un jerrod 10-19 mouth. ity of 13:15: 00:00 [place] 59 :00 Medical Branch levothyroxi 0 Yes 50ug 50 mcg, Uni vers ne 10-19 Oral, ity of (SYNTHROID) 12:00: QAM-0600, [place] tablet 50 00 First dose Medi cipriano mcg on Tue10/19/22 at 0600, Until Discontinu ed, Routine NaCl 0.9% 2022- No 500mL at 999 [facility] ers (NS) bolus 10-19 mL/hr, 500 it y of infusion 10:14: 12:01 mL, IV [place] 500 mL 00 :20 Piggyback, Medical ONCE, 1 Branch dose, On Tue10/19/22 at 0415, SABRINA traMADoL 2022-0 2022- No 50mg 50 mg, Univer s (ULTRAM) 10-19 Oral, ONCE ity of tablet 50 09:45: 10:14 NOW, 1 [place] mg 00 :00 dose, On [facility] 10/19/22 at 0345, Routine diltiazem Yes 120mg 120 mg, Univ ers XR 10-19 Oral, BID, ity of (DILT-XR) 05:15: First dose [place] capsule 120 00 (after Medica l mg last Branch modificati on) on [facility] 10/18/22 at 2315, Until Discontinu ed traMADoL 2022- No 50mg 50 mg, Univer s (ULTRAM) 10-19 Oral, ONCE ity of tablet 50 05:15: 04:44 NOW, 1 [place] mg 00 :00 dose, On [facility] 10/18/22 at 2315, Routine acetaminoph Yes 650mg 650 mg, Un jerrod en 10-19 Oral, Q6H ity of (TYLENOL) 05:00: ABX, First [place] tablet 650 00 dose on Medica l mg [facility] 10/18/22 at 2300, Until Discontinu ed, Routine [...] mL 00 :06 First dose Medical on [facility] 10/18/22 at 2215, Until Discontinu ed, Routine sucralfate 0 Yes 1g 1 g, Oral, U nivers (CARAFATE) 10-19 AC+HS, ity of tablet 1 g 03:45: First dose [place] 00 on [facility] 10/18/22 at Branch 2145, Until Discontinu ed, Routine famotidine 3-0 Yes 20mg 20 mg, Unive rs (PEPCID AC) 10-19 Oral, BID, it y of tablet 20 03:45: First dose [place] mg 00 on [facility] 10/18/22 at Branch 2145, Until Discontinu ed, Routine simethicone 3-0 Yes 80mg 80 mg, Univ ers (GAS RELIEF 10-19 Oral, ity of (SIMETHICON 03:45: PC+HS, [place] E)) 00 First dose Medical chewable on [facility] tablet 80 10/18/22 at mg 2145, Until Discontinu ed, Routine sennosides- 2022-0 Yes 1{tbl} 1 tablet, [facility] docusate 10-19 Oral, ity of sodium 03:45: DAILY, [place] (SENOKOT-S) 00 First dose Me dical 8.6-50 mg on [facility] per tablet 10/18/22 at 1 tablet 2144, Until Discontinu ed, Routine psyllium 2022-0 2023- No 1{packe 1 Packet, [facility] husk 10-19 t} Oral, ity of (METAMUCIL 03:45: 16:39 DAILY, [place] (SUGAR 00 :06 First dose Medical FREE)) 3.4 on [facility] gram oral 10/18/22 at powder 2145, packet 1 Until Packet Discontinu ed, Routine dicyclomine 2023-0 2023- No 20mg 20 mg, Uni vers (BENTYL) 10-19 Oral, QID, ity of tablet 20 03:45: 16:38 First dose [place] mg 00 :09 on [facility] 10/18/22 at Branch 2145, Until Discontinu ed, Routine ondansetron 2022-0 Yes 4mg 4 mg, Unive rs (ZOFRAN-ODT 10-19 Oral, Q8H ity of ) 03:33: ABX, First [place] disintegrat 00 dose on Medic al ing tablet [facility] 4 mg 10/18/22 at 2145, Until Discontinu [...] Wheezing, Shortness of Breath polyethylen 2022-0 Yes [id number] 17g Take 1 Univers e glycol 1-24 Packet by ity of 3350 17 00:00: mouth in [place] gram powder 00 the Medical morning Branch and 1 Packet in the evening. lactulose 2022-0 Yes [id number] 30mL Take 30 mL Univers 10 gram/15 1-24 by mouth ity o f mL solution 00:00: in the [place] 00 morning Medical and 30 mL Branch in the evening. ondansetron 2022-0 Yes [id number] 4mg Take 1 Univers 4 mg 1-24 tablet by ity of disintegrat 00:00: mouth [place] ing tablet 00 every 8 Medica l (eight) Branch hours as needed for Nausea and Vomiting (N/V). sucralfate 2022-0 Yes [id number] 1g Take 1 Univers 1 gram 1-24 tablet by ity of tablet 00:00: mouth [place] 00 before Medical meals and Branch at bedtime. pantoprazol 2022-0 Yes [id number] 40mg Take 1 Univers e 40 mg EC 1-24 tablet by ity of tablet 00:00: mouth in [place] 00 the Medical morning Branch and 1 tablet in the evening. SUMAtriptan 2022-0 Yes [id number] 50mg Take 1 Univers 50 mg 1-24 tablet by ity of tablet 00:00: mouth as [place] 00 needed for Medical Migraine. Branch May repeat dose after >=2 hours, max dose 200mg in 24 hours. polyethylen 2022-0 Yes [id number] 17g Take 1 Univers e glycol 1-24 Packet by ity of 3350 17 00:00: mouth in [place] gram powder 00 the Medical morning Branch and 1 Packet in the evening. lactulose 2022-0 Yes [id number] 30mL Take 30 mL Univers 10 gram/15 1-24 by mouth ity o f mL solution 00:00: in the [facility] morning Medical and 30 mL Branch in the evening. ondansetron 3-0 Yes [id number] 4mg Take 1 Univers 4 mg 1-24 tablet by ity of disintegrat 00:00: mouth [place] ing tablet 00 every 8 Medica l (eight) Branch hours as needed for Nausea and Vomiting (N/V). sucralfate 2023-0 Yes [id number] 1g Take 1 Univers 1 gram 1-24 tablet by ity of tablet 00:00: mouth [place] 00 before Medical meals and Branch at bedtime. pantoprazol 2023-0 Yes [id number] 40mg Take 1 Univers e 40 mg EC 1-24 tablet by ity of tablet 00:00: mouth in [place] the Medical morning Branch and 1 tablet in the evening. SUMAtriptan 3-0 Yes [id number] 50mg Take 1 Univers 50 mg 1-24 tablet by ity of tablet 00:00: mouth as [place] [address] needed for Medical Migraine. Branch May repeat dose after >=2 hours, max dose 200mg in 24 hours. polyethylen 2023-0 Yes [id number] 17g Take 1 Univers e glycol 1-24 Packet by ity of 3350 17 00:00: mouth in [place] gram powder 00 the Medical morning Branch and 1 Packet in the evening. lactulose 3-0 Yes [id number] 30mL Take 30 mL Univers 10 gram/15 1-24 by mouth ity o f mL solution 00:00: in the [facility] morning Medical and 30 mL Branch in the evening. ondansetron 3-0 Yes [id number] 4mg Take 1 Univers 4 mg 1-24 tablet by ity of disintegrat 00:00: mouth [place] ing tablet 00 every 8 Medica l (eight) Branch hours as needed for Nausea and Vomiting (N/V). sucralfate 2023-0 Yes [id number] 1g Take 1 Univers 1 gram 1-24 tablet by ity of tablet 00:00: mouth [place] 00 before Medical meals and Branch at bedtime. pantoprazol 2023-0 Yes [id number] 40mg Take 1 Univers e 40 mg EC 1-24 tablet by ity of tablet 00:00: mouth in [place] 00 the Medical morning Branch and 1 tablet in the evening. SUMAtriptan 3-0 Yes [id number] 50mg Take 1 Univers 50 mg 1-24 tablet by ity of tablet 00:00: mouth as [place] 00 needed for Medical Migraine. Branch May repeat dose after >=2 hours, max dose 200mg in 24 hours. polyethylen 2023-0 Yes [id number] 17g Take 1 Univers e glycol 1-24 Packet by ity of 3350 17 00:00: mouth in [place] gram powder 00 the Medical morning Branch and 1 Packet in the evening. lactulose 2023-0 Yes [id number] 30mL Take 30 mL Univers 10 gram/15 1-24 by mouth ity o f mL solution 00:00: in the [facility] morning Medical and 30 mL Branch in the evening. ondansetron 3-0 Yes [id number] 4mg Take 1 Univers 4 mg 1-24 tablet by ity of disintegrat 00:00: mouth [place] ing tablet 00 every 8 Medica l (eight) Branch hours as needed for Nausea and Vomiting (N/V). sucralfate 3-0 Yes [id number] 1g Take 1 Univers 1 gram 1-24 tablet by ity of tablet 00:00: mouth [place] 00 before Medical meals and Branch at bedtime. pantoprazol 3-0 Yes [id number] 40mg Take 1 Univers e 40 mg EC 1-24 tablet by ity of tablet 00:00: mouth in [place] 00 the Medical morning Branch and 1 tablet in the evening. SUMAtriptan 3-0 Yes [id number] 50mg Take 1 Univers 50 mg 1-24 tablet by ity of tablet 00:00: mouth as [place] 00 needed for Medical Migraine. Branch May repeat dose after >=2 hours, max dose 200mg in 24 hours. polyethylen 2023-0 Yes [id number] 17g Take 1 Univers e glycol 1-24 Packet by ity of 3350 17 00:00: mouth in [place] gram powder 00 the Medical morning Branch and 1 Packet in the evening. lactulose 2023-0 Yes [id number] 30mL Take 30 mL Univers 10 gram/15 1-24 by mouth ity o f mL solution 00:00: [facility] morning Medical and 30 mL Branch in the evening. ondansetron 3-0 Yes [id number] 4mg Take 1 Univers 4 mg 1-24 tablet by ity of disintegrat 00:00: mouth [place] ing tablet 00 every 8 Medica l (eight) Branch hours as needed for Nausea and Vomiting (N/V). sucralfate 2023-0 Yes [id number] 1g Take 1 Univers 1 gram 1-24 tablet by ity of tablet 00:00: mouth [place] 00 before Medical meals and Branch at bedtime. pantoprazol 2023-0 Yes [id number] 40mg Take 1 Univers e 40 mg EC 1-24 tablet by ity of tablet 00:00: mouth in [place] 00 the Medical morning Branch and 1 tablet in the evening. SUMAtriptan 3-0 Yes [id number] 50mg Take 1 Univers 50 mg 1-24 tablet by ity of tablet 00:00: mouth as [place] 00 needed for Medical Migraine. Branch May repeat dose after >=2 hours, max dose 200mg in 24 hours. polyethylen 3-0 Yes [id number] 17g Take 1 Univers e glycol 1-24 Packet by ity of 3350 17 00:00: mouth in [place] gram powder 00 the Medical morning Branch and 1 Packet in the evening. lactulose 3-0 Yes [id number] 30mL Take 30 mL Univers 10 gram/15 1-24 by mouth ity o f mL solution 00:00: in the [facility] morning Medical and 30 mL Branch in the evening. ondansetron 3-0 Yes [id number] 4mg Take 1 Univers 4 mg 1-24 tablet by ity of disintegrat 00:00: mouth [place] ing tablet 00 every 8 Medica l (eight) Branch hours as needed for Nausea and Vomiting (N/V). sucralfate 3-0 Yes [id number] 1g Take 1 Univers 1 gram 1-24 tablet by ity of tablet 00:00: mouth [place] 00 before Medical meals and Branch at bedtime. pantoprazol 2023-0 Yes [id number] 40mg Take 1 Univers e 40 mg EC 1-24 tablet by ity of tablet 00:00: mouth in [place] 00 the Medical morning Branch and 1 tablet in the evening. SUMAtriptan 2023-0 Yes [id number] 50mg Take 1 Univers 50 mg 1-24 tablet by ity of tablet 00:00: mouth as [place] 00 needed for Medical Migraine. Branch May repeat dose after >=2 hours, max dose 200mg in 24 hours. polyethylen 2023-0 Yes [id number] 17g Take 1 Univers e glycol 1-24 Packet by ity of 3350 17 00:00: mouth in [place] gram powder 00 the Medical morning Branch and 1 Packet in the evening. lactulose 3-0 Yes [id number] 30mL Take 30 mL Univers 10 gram/15 1-24 by mouth ity o f mL solution 00:00: in the morning Medical and 30 mL Branch in the evening. ondansetron 3-0 Yes [id number] 4mg Take 1 Univers 4 mg 1-24 tablet by ity of disintegrat 00:00: mouth [place] ing tablet 00 every 8 Medica l (eight) Branch hours as needed for Nausea and Vomiting (N/V). sucralfate 3-0 Yes [id number] 1g Take 1 Univers 1 gram 1-24 tablet by ity of tablet 00:00: mouth 00 before Medical meals and Branch at bedtime. pantoprazol 2022-0 Yes [id number] 40mg Take 1 Univers e 40 mg EC 1-24 tablet by ity of tablet 00:00: mouth in [place] 00 the Medical morning Branch and 1 tablet in the evening. SUMAtriptan 2022-0 Yes [id number] 50mg Take 1 Univers 50 mg 1-24 tablet by ity of tablet 00:00: mouth as 00 needed for Medical Migraine. Branch May repeat dose after >=2 hours, max dose 200mg in 24 hours. polyethylen 3-0 Yes [id number] 17g Take 1 Univers e glycol 1-24 Packet by ity of 3350 17 00:00: mouth in [place] gram powder 00 the Medical morning Branch and 1 Packet in the evening. lactulose 3-0 Yes [id number] 30mL Take 30 mL Univers 10 gram/15 1-24 by mouth ity o f mL solution 00:00: in the morning Medical and 30 mL Branch in the evening. ondansetron 3-0 Yes [id number] 4mg Take 1 [facility] 4 mg 1-24 tablet by ity of disintegrat 00:00: mouth [place] ing tablet 00 every 8 Medica l (eight) Branch hours as needed for Nausea and Vomiting (N/V). sucralfate 2023-0 Yes [id number] 1g Take 1 [facility] 1 gram 1-24 tablet by ity of tablet 00:00: mouth [place] 00 before Medical meals and Branch at bedtime. pantoprazol 2023-0 Yes [id number] 40mg Take 1 [facility] e 40 mg EC 1-24 tablet by ity of tablet 00:00: mouth in [place] 00 the Medical morning Branch and 1 tablet in the evening. SUMAtriptan 3-0 Yes [id number] 50mg Take 1 [facility] 50 mg 1-24 tablet by ity of tablet 00:00: mouth as [place] 00 needed for Medical Migraine. Branch May repeat dose after >=2 hours, max dose 200mg in 24 hours. polyethylen 2023-0 Yes [id number] 17g Take 1 [facility] e glycol 1-24 Packet by ity of 3350 17 00:00: mouth in [place] gram powder 00 the Medical morning Branch and 1 Packet in the evening. lactulose 3-0 Yes [id number] 30mL Take 30 mL [facility] 10 gram/15 1-24 by mouth ity o f mL solution 00:00: in the [facility] 00 morning Medical and 30 mL Branch in the evening. ondansetron 2022-0 Yes [id number] 4mg Take 1 [facility] 4 mg 1-24 tablet by ity of disintegrat 00:00: mouth [place] ing tablet 00 every 8 Medica l (eight) Branch hours as needed for Nausea and Vomiting (N/V). sucralfate 3-0 Yes [id number] 1g Take 1 [facility] 1 gram 1-24 tablet by ity of tablet 00:00: mouth [place] 00 before Medical meals and Branch at bedtime. pantoprazol 3-0 Yes [id number] 40mg Take 1 [facility] e 40 mg EC 1-24 tablet by ity of tablet 00:00: mouth in [place] 00 the Medical morning Branch and 1 tablet in the evening. SUMAtriptan 3-0 Yes [id number] 50mg Take 1 [facility] 50 mg 1-24 tablet by ity of tablet 00:00: mouth as [place] 00 needed for Medical Migraine. Branch May repeat dose after >=2 hours, max dose 200mg in 24 hours. polyethylen 3-0 Yes [id number] 17g Take 1 [facility] e glycol 1-24 Packet by ity of 3350 17 00:00: mouth in [place] gram powder 00 the Medical morning Branch and 1 Packet in the evening. lactulose 2023-0 Yes [id number] 30mL Take 30 mL [facility] 10 gram/15 1-24 by mouth ity o f mL solution 00:00: in the [facility] morning Medical and 30 mL Branch in the evening. ondansetron 3-0 Yes [id number] 4mg Take 1 [facility] 4 mg 1-24 tablet by ity of disintegrat 00:00: mouth [place] ing tablet 00 every 8 Medica l (eight) Branch hours as needed for Nausea and Vomiting (N/V). sucralfate 2023-0 Yes [id number] 1g Take 1 [facility] 1 gram 1-24 tablet by ity of tablet 00:00: mouth [place] 00 before Medical meals and Branch at bedtime. pantoprazol 2023-0 Yes [id number] 40mg Take 1 [facility] e 40 mg EC 1-24 tablet by ity of tablet 00:00: mouth in [place] 00 the Medical morning Branch and 1 tablet in the evening. SUMAtriptan 3-0 Yes [id number] 50mg Take 1 [facility] 50 mg 1-24 tablet by ity of tablet 00:00: mouth as [place] 00 needed for Medical Migraine. Branch May repeat dose after >=2 hours, max dose 200mg in 24 hours. polyethylen 3-0 Yes [id number] 17g Take 1 [facility] e glycol 1-24 Packet by ity of 3350 17 00:00: mouth in [place] gram powder 00 the Medical morning Branch and 1 Packet in the evening. lactulose 3-0 Yes [id number] 30mL Take 30 mL [facility] 10 gram/15 1-24 by mouth ity o f mL solution 00:00: in the [facility] morning Medical and 30 mL Branch in the evening. ondansetron 3-0 Yes [id number] 4mg Take 1 [facility] 4 mg 1-24 tablet by ity of disintegrat 00:00: mouth [place] ing tablet 00 every 8 Medica l (eight) Branch hours as needed for Nausea and Vomiting (N/V). sucralfate 2023-0 Yes [id number] 1g Take 1 [facility] 1 gram 1-24 tablet by ity of tablet 00:00: mouth [place] 00 before Medical meals and Branch at bedtime. pantoprazol 2023-0 Yes [id number] 40mg Take 1 [facility] e 40 mg EC 1-24 tablet by ity of tablet 00:00: mouth in [place] 00 the Medical morning Branch and 1 tablet in the evening. SUMAtriptan 2023-0 Yes [id number] 50mg Take 1 [facility] 50 mg 1-24 tablet by ity of tablet 00:00: mouth as 00 needed for Medical Migraine. Branch May repeat dose after >=2 hours, max dose 200mg in 24 hours. polyethylen 2023-0 Yes [id number] 17g Take 1 [facility] e glycol 1-24 Packet by ity of 3350 17 00:00: mouth in [place] gram powder 00 the Medical morning Branch and 1 Packet in the evening. lactulose 2023-0 Yes [id number] 30mL Take 30 mL [facility] 10 gram/15 1-24 by mouth ity o f mL solution 00:00: in the morning Medical and 30 mL Branch in the evening. ondansetron 3-0 Yes [id number] 4mg Take 1 [facility] 4 mg 1-24 tablet by ity of disintegrat 00:00: mouth [place] ing tablet 00 every 8 Medica l (eight) Branch hours as needed for Nausea and Vomiting (N/V). sucralfate 3-0 Yes [id number] 1g Take 1 [facility] 1 gram 1-24 tablet by ity of tablet 00:00: mouth 00 before Medical meals and Branch at bedtime. pantoprazol 3-0 Yes [id number] 40mg Take 1 [facility] e 40 mg EC 1-24 tablet by ity of tablet 00:00: mouth in 00 the Medical morning Branch and 1 tablet in the evening. SUMAtriptan 3-0 Yes [id number] 50mg Take 1 [facility] 50 mg 1-24 tablet by ity of tablet 00:00: mouth [place] 00 needed for Medical Migraine. Branch May repeat dose after >=2 hours, max dose 200mg in 24 hours. polyethylen 2023-0 Yes [id number] 17g Take 1 [facility] e glycol 1-24 Packet by ity of 3350 17 00:00: mouth in [place] gram powder 00 the Medical morning Branch and 1 Packet in the evening. lactulose 3-0 Yes [id number] 30mL Take 30 mL [facility] 10 gram/15 1-24 by mouth ity o f mL solution 00:00: in the morning Medical and 30 mL Branch in the evening. ondansetron 3-0 Yes [id number] 4mg Take 1 [facility] 4 mg 1-24 tablet by ity of disintegrat 00:00: mouth [place] ing tablet 00 every 8 Medica l (eight) Branch hours as needed for Nausea and Vomiting (N/V). sucralfate 2023-0 Yes [id number] 1g Take 1 [facility] 1 gram 1-24 tablet by ity of tablet 00:00: mouth [place] 00 before Medical meals and Branch at bedtime. pantoprazol 3-0 Yes [id number] 40mg Take 1 [facility] e 40 mg EC 1-24 tablet by ity of tablet 00:00: mouth in [place] 00 the Medical morning Branch and 1 tablet in the evening. SUMAtriptan 3-0 Yes [id number] 50mg Take 1 [facility] 50 mg 1-24 tablet by ity of tablet 00:00: mouth as [place] 00 needed for Medical Migraine. Branch May repeat dose after >=2 hours, max dose 200mg in 24 hours. polyethylen 3-0 Yes [id number] 17g Take 1 [facility] e glycol 1-24 Packet by ity of 3350 17 00:00: mouth in [place] gram powder 00 the Medical morning Branch and 1 Packet in the evening. lactulose 2022-0 Yes [id number] 30mL Take 30 mL [facility] 10 gram/15 1-24 by mouth ity o f mL solution 00:00: in the [facility] 00 morning Medical and 30 mL Branch in the evening. ondansetron 3-0 Yes [id number] 4mg Take 1 [facility] 4 mg 1-24 tablet by ity of disintegrat 00:00: mouth [place] ing tablet 00 every 8 Medica l (eight) Branch hours as needed for Nausea and Vomiting (N/V). sucralfate 3-0 Yes [id number] 1g Take 1 [facility] 1 gram 1-24 tablet by ity of tablet 00:00: mouth [place] 00 before Medical meals and Branch at bedtime. pantoprazol 2023-0 Yes [id number] 40mg Take 1 [facility] e 40 mg EC 1-24 tablet by ity of tablet 00:00: mouth in [place] 00 the Medical morning Branch and 1 tablet in the evening. SUMAtriptan 3-0 Yes [id number] 50mg Take 1 [facility] 50 mg 1-24 tablet by ity of tablet 00:00: mouth as [place] 00 needed for Medical Migraine. Branch May repeat dose after >=2 hours, max dose 200mg in 24 hours. polyethylen 2023-0 Yes [id number] 17g Take 1 [facility] e glycol 1-24 Packet by ity of 3350 17 00:00: mouth in [place] gram powder 00 the Medical morning Branch and 1 Packet in the evening. lactulose 3-0 Yes [id number] 30mL Take 30 mL [facility] 10 gram/15 1-24 by mouth ity o f mL solution 00:00: in the morning Medical and 30 mL Branch in the evening. ondansetron 3-0 Yes [id number] 4mg Take 1 [facility] 4 mg 1-24 tablet by ity of disintegrat 00:00: mouth [place] ing tablet 00 every 8 Medica l (eight) Branch hours as needed for Nausea and Vomiting (N/V). sucralfate 2023-0 Yes [id number] 1g Take 1 [facility] 1 gram 1-24 tablet by ity of tablet 00:00: mouth [place] 00 before Medical meals and Branch at bedtime. pantoprazol 3-0 Yes [id number] 40mg Take 1 [facility] e 40 mg EC 1-24 tablet by ity of tablet 00:00: mouth in [place] 00 the Medical morning Branch and 1 tablet in the evening. SUMAtriptan 2022-0 Yes [id number] 50mg Take 1 [facility] 50 mg 1-24 tablet by ity of tablet 00:00: mouth as [place] 00 needed for Medical Migraine. Branch May repeat dose after >=2 hours, max dose 200mg in 24 hours. polyethylen 3-0 Yes [id number] 17g Take 1 [facility] e glycol 1-24 Packet by ity of 3350 17 00:00: mouth in [place] gram powder 00 the Medical morning Branch and 1 Packet in the evening. lactulose 3-0 Yes [id number] 30mL Take 30 mL [facility] 10 gram/15 1-24 by mouth ity o f mL solution 00:00: in the [facility] morning Medical and 30 mL Branch in the evening. ondansetron 3-0 Yes [id number] 4mg Take 1 [facility] 4 mg 1-24 tablet by ity of disintegrat 00:00: mouth [place] ing tablet 00 every 8 Medica l (eight) Branch hours as needed for Nausea and Vomiting (N/V). sucralfate 2023-0 Yes [id number] 1g Take 1 [facility] 1 gram 1-24 tablet by ity of tablet 00:00: mouth [place] 00 before Medical meals and Branch at bedtime. pantoprazol 2023-0 Yes [id number] 40mg Take 1 [facility] e 40 mg EC 1-24 tablet by ity of tablet 00:00: mouth in [place] 00 the Medical morning Branch and 1 tablet in the evening. SUMAtriptan 3-0 Yes [id number] 50mg Take 1 [facility] 50 mg 1-24 tablet by ity of tablet 00:00: mouth as [place] 00 needed for Medical Migraine. Branch May repeat dose after >=2 hours, max dose 200mg in 24 hours. polyethylen 2023-0 Yes [id number] 17g Take 1 [facility] e glycol 1-24 Packet by ity of 3350 17 00:00: mouth in [place] gram powder 00 the Medical morning Branch and 1 Packet in the evening. lactulose 3-0 Yes [id number] 30mL Take 30 mL [facility] 10 gram/15 1-24 by mouth ity o f mL solution 00:00: in the [facility] 00 morning Medical and 30 mL Branch in the evening. ondansetron 3-0 Yes [id number] 4mg Take 1 [facility] 4 mg 1-24 tablet by ity of disintegrat 00:00: mouth [place] ing tablet 00 every 8 Medica l (eight) Branch hours as needed for Nausea and Vomiting (N/V). sucralfate 3-0 Yes [id number] 1g Take 1 [facility] 1 gram 1-24 tablet by ity of tablet 00:00: mouth [place] 00 before Medical meals and Branch at bedtime. pantoprazol 3-0 Yes [id number] 40mg Take 1 [facility] e 40 mg EC 1-24 tablet by ity of tablet 00:00: mouth in [place] 00 the Medical morning Branch and 1 tablet in the evening. SUMAtriptan 3-0 Yes [id number] 50mg Take 1 [facility] 50 mg 1-24 tablet by ity of tablet 00:00: mouth as [place] 00 needed for Medical Migraine. Branch May repeat dose after >=2 hours, max dose 200mg in 24 hours. polyethylen 3-0 Yes [id number] 17g Take 1 [facility] e glycol 1-24 Packet by ity of 3350 17 00:00: mouth in [place] gram powder 00 the Medical morning Branch and 1 Packet in the evening. lactulose 2023-0 Yes [id number] 30mL Take 30 mL [facility] 10 gram/15 1-24 by mouth ity o f mL solution 00:00: in the [facility] morning Medical and 30 mL Branch in the evening. ondansetron 3-0 Yes [id number] 4mg Take 1 [facility] 4 mg 1-24 tablet by ity of disintegrat 00:00: mouth [place] ing tablet 00 every 8 Medica l (eight) Branch hours as needed for Nausea and Vomiting (N/V). sucralfate 2023-0 Yes [id number] 1g Take 1 [facility] 1 gram 1-24 tablet by ity of tablet 00:00: mouth [place] 00 before Medical meals and Branch at bedtime. pantoprazol 2023-0 Yes [id number] 40mg Take 1 [facility] e 40 mg EC 1-24 tablet by ity of tablet 00:00: mouth in [place] 00 the Medical morning Branch and 1 tablet in the evening. SUMAtriptan 3-0 Yes [id number] 50mg Take 1 [facility] 50 mg 1-24 tablet by ity of tablet 00:00: mouth as [place] 00 needed for Medical Migraine. Branch May repeat dose after >=2 hours, max dose 200mg in 24 hours. polyethylen 3-0 Yes [id number] 17g Take 1 [facility] e glycol 1-24 Packet by ity of 3350 17 00:00: mouth in [place] gram powder 00 the Medical morning Branch and 1 Packet in the evening. lactulose 3-0 Yes [id number] 30mL Take 30 mL [facility] 10 gram/15 1-24 by mouth ity o f mL solution 00:00: in the [facility] morning Medical and 30 mL Branch in the evening. ondansetron 3-0 Yes [id number] 4mg Take 1 [facility] 4 mg 1-24 tablet by ity of disintegrat 00:00: mouth [place] ing tablet 00 every 8 Medica l (eight) Branch hours as needed for Nausea and Vomiting (N/V). sucralfate 2023-0 Yes [id number] 1g Take 1 [facility] 1 gram 1-24 tablet by ity of tablet 00:00: mouth [place] 00 before Medical meals and Branch at bedtime. pantoprazol 2023-0 Yes [id number] 40mg Take 1 [facility] e 40 mg EC 1-24 tablet by ity of tablet 00:00: mouth in [place] 00 the Medical morning Branch and 1 tablet in the evening. SUMAtriptan 2023-0 Yes [id number] 50mg Take 1 [facility] 50 mg 1-24 tablet by ity of tablet 00:00: mouth as 00 needed for Medical Migraine. Branch May repeat dose after >=2 hours, max dose 200mg in 24 hours. polyethylen 2023-0 Yes [id number] 17g Take 1 [facility] e glycol 1-24 Packet by ity of 3350 17 00:00: mouth in [place] gram powder 00 the Medical morning Branch and 1 Packet in the evening. lactulose 3-0 Yes [id number] 30mL Take 30 mL [facility] 10 gram/15 1-24 by mouth ity o f mL solution 00:00: in the morning Medical and 30 mL Branch in the evening. ondansetron 3-0 Yes [id number] 4mg Take 1 [facility] 4 mg 1-24 tablet by ity of disintegrat 00:00: mouth [place] ing tablet 00 every 8 Medica l (eight) Branch hours as needed for Nausea and Vomiting (N/V). sucralfate 3-0 Yes [id number] 1g Take 1 [facility] 1 gram 1-24 tablet by ity of tablet 00:00: mouth 00 before Medical meals and Branch at bedtime. pantoprazol 3-0 Yes [id number] 40mg Take 1 [facility] e 40 mg EC 1-24 tablet by ity of tablet 00:00: mouth in [place] 00 the Medical morning Branch and 1 tablet in the evening. SUMAtriptan 3-0 Yes [id number] 50mg Take 1 [facility] 50 mg 1-24 tablet by ity of tablet 00:00: mouth as 00 needed for Medical Migraine. Branch May repeat dose after >=2 hours, max dose 200mg in 24 hours. polyethylen 2023-0 Yes [id number] 17g Take 1 [facility] e glycol 1-24 Packet by ity of 3350 17 00:00: mouth in [place] gram powder 00 the Medical morning Branch and 1 Packet in the evening. lactulose 3-0 Yes [id number] 30mL Take 30 mL [facility] 10 gram/15 1-24 by mouth ity o f mL solution 00:00: in the morning Medical and 30 mL Branch in the evening. ondansetron 3-0 Yes [id number] 4mg Take 1 [facility] 4 mg 1-24 tablet by ity of disintegrat 00:00: mouth [place] ing tablet 00 every 8 Medica l (eight) Branch hours as needed for Nausea and Vomiting (N/V). sucralfate Yes [id number] 1g Take 1 [facility] 1 gram 1-24 tablet by ity of tablet 00:00: mouth [place] 00 before Medical meals and Branch at bedtime. pantoprazol 0 Yes [id number] 40mg Take 1 [facility] e 40 mg EC 1-24 tablet by ity of tablet 00:00: mouth in [place] 00 the Medical morning Branch and 1 tablet in the evening. SUMAtriptan 0 Yes [id number] 50mg Take 1 [facility] 50 mg 1-24 tablet by ity of tablet 00:00: mouth as [place] 00 needed for Medical Migraine. Branch May repeat dose after >=2 hours, max dose 200mg in 24 hours. iopamidol 2022- No [id number] 73mL 73 mL, Univers (ISOVUE 10-19-24 Intravenou ity o f 370-500 mL) 00:00: 00:00 s, ONCE, 1 [place] injection 00 :00 dose, On Medica l 73 mL [facility] 10/18/22 at 1800, Routine lactulose 2022- No 45mL 45 mL, Unive rs (CEPHULAC) 10-18 Oral, ity of solution 45 23:45: 23:48 ONCE, 1 [place] mL 00 :00 dose, On [facility] 10/18/22 at 1745, SABRINA dicyclomine 2022- No 20mg 20 mg, Uni vers (BENTYL) 10-18 Intramuscu ity of injection 22:30: 22:11 lar, ONCE, [place] 20 mg 00 :00 1 dose, On [facility] 10/18/22 at 1630, Routine NaCl 0.9% 2022- No 1000mL at 999 Uni vers (NS) bolus 10-18 mL/hr, ity of infusion 22:30: 23:42 1,000 mL, [place] 1,000 mL 00 :00 IV Medical Infusion, Branch ONCE, 1 dose, On [facility] 10/18/22 at 1630, SABRINA MULTIVIT Yes Take by Univer s &MINERALS/F 1-23 mouth. ity of ERROUS FUM 21:34: [place] (MULTI 37 Medical VITAMIN Branch ORAL) METHYLCELLU Yes [facility] LOSE (FIBER 1-23 ity of THERAPY 21:34: [place] MISC) 37 Medical Branch DOCUSATE Yes Take by [facility] SODIUM -23 mouth. ity of (COLACE 21:34: [place] ORAL) 37 Medical Branch vitamin C Yes 1000mg Take 1,000 [facility] with derrell 1-23 mg by ity of hips 1,000 21:34: mouth [place] mg tablet 37 daily. Medical Branch DOCOSAHEXAN Yes 1000mg Take 1,000 [facility] OIC 1-23 mg by ity of ACID/EPA 21:34: mouth [place] (FISH OIL 37 daily. Medical ORAL) Branch FOLIC ACID Yes Take by [facility] ers ORAL 1-23 mouth ity of 20:39: daily. [place] 28 Medical Branch cholecalcif Yes 1000U Take 1,000 [facility] edmar, 1-23 Units by ity of vitamin D3, 20:39: mouth [place] 25 mcg 28 daily. Medical (1,000 Branch unit) tablet CRANBERRY Yes Take by [facility] rs FRUIT - mouth ity of EXTRACT 20:39: daily. [place] (CRANBERRY 28 Medical ORAL) Branch CALCIUM Yes Take by Univers ORAL 1-23 mouth ity of 20:39: daily. [place] [address] Medical Branch BIOTIN ORAL Yes Take by Uni vers -23 mouth. ity of 20:39: [place] [address] Medical Branch peg-electro Yes [id number] Take as [facility] lyte soln - 9102 directed ity of 236-22.74-6 00:00: before [place] .74 -5.86 00 colonoscop Medi cipriano gram y Branch solution peg-electro 2022-0 Yes [id number] Take as [facility] lyte soln -02 directed ity of 236-22.74-6 00:00: before [place] -5.86 00 colonoscop Medi cipriano gram y Branch solution peg-electro 2022-0 Yes [id number] Take as [facility] lyte soln -02 directed ity of 236-22.74-6 00:00: before [place] -5.86 00 colonoscop Medi cipriano gram y Branch solution peg-electro 3-0 Yes [id number] Take as [facility] lyte soln 10-15 9102 directed ity of 236-22.74-6 00:00: before [place] -5.86 00 colonoscop Medi cipriano gram y Branch solution peg-electro 2022-0 Yes [id number] Take as [facility] lyte soln 10-15 9102 directed ity of 236-22.74-6 00:00: before [place] -5.86 00 colonoscop Medi cipriano gram y Branch solution peg-electro 2022-0 3- No [id number] Take as Univers lyte soln 10-15 9102 directed ity o f 236-22.74-6 00:00: 00:00 before [place] .74 -5.86 00 :00 colonoscop Medi cipriano gram y Branch solution peg-electro 2022-0 3- No [id number] Take as [facility] lyte soln 10-15 9102 directed ity o f 236-22.74-6 00:00: 00:00 before [place] .74 -5.86 00 :00 colonoscop Medi cipriano gram y Branch solution busPIRone 2023-0 Yes [id number] 20mg Take 2 Un [place] 10 mg 1-17 tablets by ity of tablet 00:00: mouth in [place] 00 the Medical morning Branch and 2 tablets in the evening. busPIRone 2023-0 Yes [id number] 20mg Take 2 Un [place] 10 mg 1-17 tablets by ity of tablet 00:00: mouth in [place] 00 the Medical morning Branch and 2 tablets in the evening. busPIRone 2023-0 Yes [id number] 20mg Take 2 [facility] [place] 10 mg 1-17 tablets by ity of tablet 00:00: mouth in [place] 00 the Medical morning Branch and 2 tablets in the evening. busPIRone 2023-0 Yes [id number] 20mg Take 2 Un [place] 10 mg 1-17 tablets by ity of tablet 00:00: mouth in [place] 00 the Medical morning Branch and 2 tablets in the evening. busPIRone 2023-0 Yes [id number] 20mg Take 2 Un [place] 10 mg 1-17 tablets by ity of tablet 00:00: mouth in [place] 00 the Medical morning Branch and 2 tablets in the evening. busPIRone 2023-0 Yes [id number] 20mg Take 2 Un [place] 10 mg 1-17 tablets by ity of tablet 00:00: mouth in [place] 00 the Medical morning Branch and 2 tablets in the evening. busPIRone 2023-0 Yes [id number] 20mg Take 2 Un [place] 10 mg 1-17 tablets by ity of tablet 00:00: mouth in [place] 00 the Medical morning Branch and 2 tablets in the evening. busPIRone 2023-0 Yes [id number] 20mg Take 2 Un [place] 10 mg 1-17 tablets by ity of tablet 00:00: mouth in [place] 00 the Medical morning Branch and 2 tablets in the evening. busPIRone 2023-0 Yes [id number] 20mg Take 2 Un [place] 10 mg 1-17 tablets by ity of tablet 00:00: mouth in [place] 00 the Medical morning Branch and 2 tablets in the evening. busPIRone 2023-0 Yes [id number] 20mg Take 2 Un [place] 10 mg 1-17 tablets by ity of tablet 00:00: mouth in [place] 00 the Medical morning Branch and 2 tablets in the evening. busPIRone 2023-0 Yes [id number] 20mg Take 2 Un [place] 10 mg 1-17 tablets by ity of tablet 00:00: mouth in [place] 00 the Medical morning Branch and 2 tablets in the evening. busPIRone 2023-0 Yes [id number] 20mg Take 2 Un [place] 10 mg 1-17 tablets by ity of tablet 00:00: mouth in [place] 00 the Medical morning Branch and 2 tablets in the evening. busPIRone 2023-0 Yes [id number] 20mg Take 2 Un [place] 10 mg 1-17 tablets by ity of tablet 00:00: mouth in [place] 00 the Medical morning Branch and 2 tablets in the evening. busPIRone 2023-0 Yes [id number] 20mg Take 2 Un [place] 10 mg 1-17 tablets by ity of tablet 00:00: mouth in [place] 00 the Medical morning Branch and 2 tablets in the evening. busPIRone 2023-0 Yes [id number] 20mg Take 2 Un [place] 10 mg 1-17 tablets by ity of tablet 00:00: mouth in [place] 00 the Medical morning Branch and 2 tablets in the evening. busPIRone 2023-0 Yes [id number] 20mg Take 2 Un [place] 10 mg 1-17 tablets by ity of tablet 00:00: mouth in [place] 00 the Medical morning Branch and 2 tablets in the evening. busPIRone 2023-0 Yes [id number] 20mg Take 2 Un [place] 10 mg 1-17 tablets by ity of tablet 00:00: mouth in [place] 00 the Medical morning Branch and 2 tablets in the evening. busPIRone 2023-0 Yes [id number] 20mg Take 2 Un [place] 10 mg 1-17 tablets by ity of tablet 00:00: mouth in [place] 00 the Medical morning Branch and 2 tablets in the evening. busPIRone 2023-0 Yes [id number] 20mg Take 2 Un [place] 10 mg 1-17 tablets by ity of tablet 00:00: mouth in [place] 00 the Medical morning Branch and 2 tablets in the evening. busPIRone 2023-0 Yes [id number] 20mg Take 2 Un [place] 10 mg 1-17 tablets by ity of tablet 00:00: mouth in [place] 00 the Medical morning Branch and 2 tablets in the evening. busPIRone 2023-0 Yes [id number] 20mg Take 2 [facility] [place] 10 mg 1-17 tablets by ity of tablet 00:00: mouth in [place] 00 the Medical morning Branch and 2 tablets in the evening. busPIRone 2023-0 Yes [id number] 20mg Take 2 Un [place] 10 mg 1-17 tablets by ity of tablet 00:00: mouth in [place] 00 the Medical morning Branch and 2 tablets in the evening. busPIRone 2023-0 Yes [id number] 20mg Take 2 Un [place] 10 mg 1-17 tablets by ity of tablet 00:00: mouth in [place] 00 the Medical morning Branch and 2 tablets in the evening. busPIRone 2023-0 Yes [id number] 20mg Take 2 Un [place] 10 mg 1-17 tablets by ity of tablet 00:00: mouth in [place] 00 the Medical morning Branch and 2 tablets in the evening. busPIRone 2023-0 Yes [id number] 20mg Take 2 Un [place] 10 mg 1-17 tablets by ity of tablet 00:00: mouth in [place] 00 the Medical morning Branch and 2 tablets in the evening. busPIRone 2023-0 Yes [id number] 20mg Take 2 Un [place] 10 mg 1-17 tablets by ity of tablet 00:00: mouth in [place] 00 the Medical morning Branch and 2 tablets in the evening. busPIRone 2023-0 Yes [id number] 20mg Take 2 Un [place] 10 mg 1-17 tablets by ity of tablet 00:00: mouth in [place] 00 the Medical morning Branch and 2 tablets in the evening. busPIRone 2023-0 Yes [id number] 20mg Take 2 Un [place] 10 mg 1-17 tablets by ity of tablet 00:00: mouth in [place] 00 the Medical morning Branch and 2 [...] TABLET BY ity o f 00:00: MOUTH 00 EVERY 8 Medical HOURS Branch NEEDED traMADoL 50 Yes TAKE 1 Univ ers mg tablet 10-09 TABLET BY ity o f 00:00: MOUTH 00 EVERY 8 Medical HOURS Branch NEEDED traMADoL 50 0 2022- No 50mg Take 50 mg Univers [...] Bran ch 7 DAYS metroNIDAZO 2022-0 Yes [id number] 500mg Take 1 Univers LE 500 mg 1-12 tablet by ity o f tablet 00:00: mouth in [place] 00 the Medical morning Branch and 1 tablet in the evening. dicyclomine 2022-0 Yes [id number] 20mg Take 1 [facility] 20 mg 1-12 tablet by ity of tablet 00:00: mouth 4 [place] 00 (four) Medical times Branch daily. metroNIDAZO 2022-0 Yes [id number] 500mg Take 1 [facility] LE 500 mg 1-12 tablet by ity o f tablet 00:00: mouth in [place] 00 the Medical morning Branch and 1 tablet in the evening. dicyclomine 2023-0 Yes [id number] 20mg Take 1 [facility] 20 mg 1-12 tablet by ity of tablet 00:00: mouth 4 [place] ([facility]) Medical times [facility] daily. metroNIDAZO 2023-0 Yes [id number] 500mg Take 1 [facility] LE 500 mg 1-12 tablet by ity o f tablet 00:00: mouth in [place] 00 the Medical morning Branch and 1 tablet in the evening. dicyclomine 2023-0 Yes [id number] 20mg Take 1 [facility] 20 mg 1-12 tablet by ity of tablet 00:00: mouth 4 [place] ([facility]) Medical times [facility] daily. metroNIDAZO 2023-0 Yes [id number] 500mg Take 1 [facility] LE 500 mg 1-12 tablet by ity o f tablet 00:00: mouth in [place] 00 the Medical morning Branch and 1 tablet in the evening. dicyclomine 2023-0 Yes [id number] 20mg Take 1 [facility] 20 mg 1-12 tablet by ity of tablet 00:00: mouth [place] ([facility]) [facility] times [facility] daily. metroNIDAZO 2023-0 Yes [id number] 500mg Take 1 [facility] LE 500 mg 1-12 tablet by ity o f tablet 00:00: mouth in [place] 00 the Medical morning Branch and 1 tablet in the evening. dicyclomine 2023-0 Yes [id number] 20mg Take 1 [facility] 20 mg 1-12 tablet by ity of tablet 00:00: mouth [place] ([facility]) Medical times [facility] daily. metroNIDAZO 2023-0 Yes [id number] 500mg Take 1 [facility] LE 500 mg 1-12 tablet by ity o f tablet 00:00: mouth in [place] 00 the Medical morning Branch and 1 tablet in the evening. dicyclomine 2023-0 Yes [id number] 20mg Take 1 [facility] 20 mg 1-12 tablet by ity of tablet 00:00: mouth 4 [place] ([facility]) Medical times [place] daily. metroNIDAZO 2023-0 2023- No [id number] 500mg Take 1 [facility] LE 500 mg 1-12 01-24 tablet by ity of tablet 00:00: 00:00 mouth in [place] 00 :00 the Medical morning Branch and 1 tablet in the evening. dicyclomine 2023-0 2023- No [id number] 20mg Take 1 [facility] 20 mg 10-07 tablet by ity of tablet 00:00: 00:00 mouth 4 [place] 00 :[address] ([address] [facility]) Medical times Branch daily. metroNIDAZO 2022-0 2022- No [id number] 500mg Take 1 [facility] LE 500 mg 10-07 tablet by ity of tablet 00:00: 00:00 mouth in [place] 00 :00 the Medical morning Branch and 1 tablet in the evening. dicyclomine 3-0 2022- No [id number] 20mg Take 1 [facility] 20 mg 10-07 tablet by ity of tablet 00:00: 00:00 mouth 4 [place] 00 :[address] [facility]) Medical times [facility] daily. metroNIDAZO 2022-0 2022- No [id number] 500mg Take 1 [facility] LE 500 mg 10-07 tablet by ity of tablet 00:00: 00:00 mouth in [place] 00 :00 the Medical morning Branch and 1 tablet in the evening. dicyclomine 2022-0 2022- No [id number] 20mg Take 1 [facility] 20 mg 10-07 tablet by ity of tablet 00:00: 00:00 mouth 4 [place] 00 :[address] ([address] [facility]) Medical times [facility] daily[facility] dicyclomine 2023-0 Yes 20mg Take 20 mg [facility] 20 mg 1-10 by mouth 4 [facility]y of tablet 00:00: ([facility]) [place] 00 times Medical daily. Branch metoclopram 3-0 Yes TAKE 1 Univ ers dariela HCl 10 1-10 TABLET BY ity of mg tablet 00:00: [facility] 00 EVERY 6 Medical HOURS (30 Branch MINUTES BEFORE MEALS AND AT BEDTIME) dicyclomine 2023-0 Yes 20mg Take 20 mg [facility] 20 mg 1-10 by mouth 4 [facility] of tablet 00:00: ([facility]) [place] 00 times Medical daily. Branch metoclopram 3-0 Yes TAKE 1 Univ ers dariela HCl 10 1-10 TABLET BY ity of mg tablet 00:00: MOUTH [place] 00 EVERY 6 Medical HOURS (30 Branch MINUTES BEFORE MEALS AND AT BEDTIME) metoclopram 2023-0 Yes TAKE 1 [facility] ers dariela HCl 10 1-10 TABLET BY ity of mg tablet 00:00: [facility] 00 EVERY 6 Medical HOURS (30 Branch [...] TABLET BY ity of mg tablet 00:00: 00 EVERY 6 Medical HOURS (30 Branch [...] 20mg Take 20 mg [facility] 20 mg 10 10-07 by mouth 4 [facility]y of tablet 00:00: 00:00 (four) [place] 00 :00 times Medical daily. Branch ibuprofen 2021-09 Yes TAKE 1 [facility]iver s 800 mg 2-26 TABLET BY ity of tablet 00:00: MOUTH [place] 00 EVERY 8 Medical HOURS WITH Branch FOOD NEEDED FOR PAIN Nitrofurant 2021- Yes TAKE 1 Univ ers oin&Nit. 2-26 CAPSULE BY ity o f Macrocryst 00:00: MOUTH [place] 100 mg 00 EVERY 12 Medical capsule HOURS FOR Branch 10 DAYS ibuprofen 2021-09 Yes TAKE 1 Univer s 800 mg 2-26 TABLET BY ity of tablet 00:00: MOUTH [place] 00 EVERY 8 Medical HOURS WITH Branch FOOD NEEDED FOR PAIN Nitrofurant 2021- Yes TAKE 1 Univ ers oin&Nit. 2-26 [...] 2021-09 Yes TAKE 1 Univ ers oin&Nit. 11-21 CAPSULE BY ity o f Macrocryst 00:00: MOUTH [place] 100 mg 00 EVERY 12 Medical capsule HOURS FOR Branch 10 DAYS ibuprofen 2021-09- No TAKE 1 Unive rs 800 mg 11-21 TABLET BY ity of tablet 00:00: 00:00 MOUTH [place] 00 :00 EVERY 8 Medical HOURS WITH Branch FOOD NEEDED FOR PAIN Nitrofurant 2021-09- No TAKE 1 Uni vers oin&Nit. 11-21 CAPSULE BY ity of Macrocryst 00:00: 00:00 MOUTH [place] 100 mg 00 :00 EVERY 12 Medical capsule HOURS FOR Branch 10 DAYS ibuprofen 2021-09- No TAKE 1 Unive rs 800 mg 11-21 TABLET BY ity of tablet 00:00: 00:00 MOUTH [place] 00 :00 EVERY 8 Medical HOURS WITH Branch FOOD NEEDED FOR PAIN Nitrofurant 2021-09- No TAKE 1 Uni vers oin&Nit. 11-21 CAPSULE BY ity of Macrocryst 00:00: 00:00 MOUTH [place] 100 mg 00 :00 EVERY 12 Medical capsule HOURS FOR Branch 10 DAYS ibuprofen 2021-09- No TAKE 1 Unive rs 800 mg 11-21 TABLET BY ity of tablet 00:00: 00:00 MOUTH [place] 00 :00 EVERY 8 Medical HOURS WITH Branch FOOD NEEDED FOR PAIN Nitrofurant 2021-09- No TAKE 1 Uni vers oin&Nit. 11-21 CAPSULE BY ity of Macrocryst 00:00: 00:00 [...] No TAKE 2 Uni vers te-atropine 2-17 01-24 TABLETS BY i ty of 2.5-0.025 00:00: 00:00 MOUTH ONCE [place] mg tablet 00 :00 DAILY Medica l NEEDED Branch diphenoxyla 2021-09- No TAKE 2 Uni vers te-atropine 2-17 01-24 TABLETS BY i ty of 2.5-0.025 00:00: 00:00 MOUTH ONCE [place] mg tablet 00 :00 DAILY Medica l NEEDED Branch diphenoxyla 2021-09- No TAKE 2 Uni vers te-atropine 2-17 01-24 TABLETS BY i ty of 2.5-0.025 00:00: 00:00 MOUTH ONCE [place] mg tablet 00 :00 DAILY Medica l NEEDED Branch pregabalin 2021-09 Yes [id number] 150mg Take 1 [facility] 150 mg 2-14 capsule by ity of capsule 00:00: mouth in [address] and 1 capsule at noon and 1 capsule in the evening. pregabalin 2021- Yes [id number] 150mg Take 1 [facility] 150 mg 2-14 capsule by ity of capsule 00:00: mouth in [address] and 1 capsule at noon and 1 capsule in the evening. pregabalin 2021- Yes [id number] 150mg Take 1 [facility] 150 mg 2-14 capsule by ity of capsule 00:00: mouth in [address] and 1 capsule at noon and 1 capsule in the evening. pregabalin 2021- Yes [id number] 150mg Take 1 [facility] 150 mg 2-14 capsule by ity of capsule 00:00: mouth in [address] and 1 capsule at noon and 1 capsule in the evening. pregabalin 2021-1 Yes [id number] 150mg Take 1 [facility] 150 mg 2-14 capsule by ity of capsule 00:00: mouth in [address] and 1 capsule at noon and 1 capsule in the evening. pregabalin 2021- Yes [id number] 150mg Take 1 [facility] 150 mg 2-14 capsule by ity of capsule 00:00: mouth in [address] and 1 capsule at noon and 1 capsule in the evening. pregabalin 2021-1 Yes [id number] 150mg Take 1 [facility] 150 mg 2-14 capsule by ity of capsule 00:00: mouth in [address] and 1 capsule at noon and 1 capsule in the evening. pregabalin 2021-1 Yes [id number] 150mg Take 1 [facility] 150 mg 2-14 capsule by ity of capsule 00:00: mouth in [address] and 1 capsule at noon and 1 capsule in the evening. pregabalin 2021-1 Yes [id number] 150mg Take 1 [facility] 150 mg 2-14 capsule by ity of capsule 00:00: mouth in [address] and 1 capsule at noon and 1 capsule in the evening. pregabalin 2021-1 Yes [id number] 150mg Take 1 [facility] 150 mg 2-14 capsule by ity of capsule 00:00: mouth in [address] and 1 capsule at noon and 1 capsule in the evening. pregabalin 2021-09 Yes [id number] 150mg Take 1 [facility] 150 mg 2-14 capsule by ity of capsule 00:00: mouth in [place] 00 the Medical morning Branch and 1 capsule at noon and 1 capsule in the evening. pregabalin 2021-09 Yes [id number] 150mg Take 1 [facility] 150 mg 2-14 capsule by ity of capsule 00:00: mouth in [place] 00 the Medical morning Branch and 1 capsule at noon and 1 capsule in the evening. pregabalin 2021-09- No [id number] 150mg Take 1 [facility] 150 mg 2-14 -24 capsule by ity of capsule 00:00: 00:00 mouth in [place] 00 :00 the Medical morning Branch and 1 capsule at noon and 1 capsule in the evening. pregabalin 2021-09- No [id number] 150mg Take 1 [facility] 150 mg 2-14 -24 capsule by ity of capsule 00:00: 00:00 mouth in [place] 00 :00 the Medical morning Branch and 1 capsule at noon and 1 capsule in the evening. pregabalin 2021-09- No [id number] 150mg Take 1 [facility] 150 mg 2-14 -24 capsule by ity of capsule 00:00: 00:00 mouth in [place] 00 :00 the Medical morning Branch and 1 capsule at noon and 1 capsule in the evening. montelukast 2021-09 Yes [id number] 10mg Take 1 [facility] (SINGULAIR) 2-09 tablet by ity of 10 mg 00:00: mouth in [place] tablet 00 the Medical morning. [facility] montelukast 2021-09 Yes [id number] 10mg Take 1 [facility] (SINGULAIR) 2-09 tablet by ity of 10 mg 00:00: mouth in [place] tablet 00 the Medical morning. [facility] montelukast 2021-09 Yes [id number] 10mg Take 1 [facility] (SINGULAIR) 2-09 tablet by ity of 10 mg 00:00: mouth in [place] tablet 00 the Medical morning. [facility] montelukast 2021-09 Yes [id number] 10mg Take 1 [facility] (SINGULAIR) 2-09 tablet by ity of 10 mg 00:00: mouth in [place] tablet 00 the Medical morning. [place] montelukast 2021-09 Yes [id number] 10mg Take 1 [facility] (SINGULAIR) 2-09 tablet by ity of 10 mg 00:00: mouth in [place] tablet 00 the Medical morning. [facility] 2021-09 Yes [id number] 10mg Take 1 [facility] (SINGULAIR) 2-09 tablet by ity of 10 mg 00:00: mouth in [place] tablet 00 the Medical morning. [facility] 2021-09 Yes [id number] 10mg Take 1 [facility] (SINGULAIR) 2-09 tablet by ity of 10 mg 00:00: mouth in [place] tablet 00 the Medical morning. [facility] 2021-09 Yes [id number] 10mg Take 1 [facility] (SINGULAIR) 2-09 tablet by ity of 10 mg 00:00: mouth in [place] tablet 00 the Medical morning. [facility] 2021-09 Yes [id number] 10mg Take 1 [facility] (SINGULAIR) 2-09 tablet by ity of 10 mg 00:00: mouth in [place] tablet 00 the Medical morning. [facility] 2021-09 Yes [id number] 10mg Take 1 [facility] (SINGULAIR) 2-09 tablet by ity of 10 mg 00:00: mouth in [place] tablet 00 the Medical morning. [facility] 2021-09 Yes [id number] 10mg Take 1 [facility] (SINGULAIR) 2-09 tablet by ity of 10 mg 00:00: mouth in [place] tablet 00 the Medical morning. [facility] 2021-09 Yes [id number] 10mg Take 1 [facility] (SINGULAIR) 2-09 tablet by ity of 10 mg 00:00: mouth in [place] tablet 00 the Medical morning. [facility] 2021-09 Yes [id number] 10mg Take 1 [facility] (SINGULAIR) 2-09 tablet by ity of 10 mg 00:00: mouth in [place] tablet 00 the Medical morning. [facility] 2021-09 Yes [id number] 10mg Take 1 [facility] (SINGULAIR) 2-09 tablet by ity of 10 mg 00:00: mouth in [place] tablet 00 the Medical morning. [facility] 2021-09 Yes [id number] 10mg Take 1 [facility] (SINGULAIR) 2-09 tablet by ity of 10 mg 00:00: mouth in [place] tablet 00 the Medical morning. [facility] 2021-09 Yes [id number] 10mg Take 1 [facility] (SINGULAIR) 2-09 tablet by ity of 10 mg 00:00: mouth in [place] tablet 00 the Medical morning. [facility] 2021-09 Yes [id number] 10mg Take 1 [facility] (SINGULAIR) 2-09 tablet by ity of 10 mg 00:00: mouth in [place] tablet 00 the Medical morning. [facility] 2021-09 Yes [id number] 10mg Take 1 [facility] (SINGULAIR) 2-09 tablet by ity of 10 mg 00:00: mouth in [place] tablet 00 the Medical morning. [facility] 2021-09 Yes [id number] 10mg Take 1 [facility] (SINGULAIR) 2-09 tablet by ity of 10 mg 00:00: mouth in [place] tablet 00 the Medical morning. [facility] 2021-09 Yes [id number] 10mg Take 1 [facility] (SINGULAIR) 2-09 tablet by ity of 10 mg 00:00: mouth in [place] tablet 00 the Medical morning. [facility] 2021-09 Yes [id number] 10mg Take 1 [facility] (SINGULAIR) 2-09 tablet by ity of 10 mg 00:00: mouth in [place] tablet 00 the Medical morning. [facility] 2021-09 Yes [id number] 10mg Take 1 [facility] (SINGULAIR) 2-09 tablet by ity of 10 mg 00:00: mouth in [place] tablet 00 the Medical morning. [facility] 2021-09 Yes [id number] 10mg Take 1 [facility] (SINGULAIR) 2-09 tablet by ity of 10 mg 00:00: mouth in [place] tablet 00 the Medical morning. [facility] 2021-09 Yes [id number] 10mg Take 1 [facility] (SINGULAIR) 2-09 tablet by ity of 10 mg 00:00: mouth in [place] tablet 00 the Medical morning. [facility] 2021-09 Yes [id number] 10mg Take 1 [facility] (SINGULAIR) 2-09 tablet by ity of 10 mg 00:00: mouth in [place] tablet 00 the Medical morning. [facility] 2021-09 Yes [id number] 10mg Take 1 [facility] (SINGULAIR) 2-09 tablet by ity of 10 mg 00:00: mouth in [place] tablet 00 the Medical morning. [facility] 2021-09 Yes [id number] 10mg Take 1 [facility] (SINGULAIR) 2-09 tablet by ity of 10 mg 00:00: mouth in [place] tablet 00 the Medical morning. [facility] 2021-09 Yes [id number] 10mg Take 1 [facility] (SINGULAIR) 2-09 tablet by ity of 10 mg 00:00: mouth in [place] tablet 00 the Medical morning. [facility] 2021-09 Yes [id number] 10mg Take 1 [facility] (SINGULAIR) 2-09 tablet by ity of 10 mg 00:00: mouth in [place] tablet 00 the Medical morning. [facility] 2021-09 Yes [id number] 10mg Take 1 [facility] (SINGULAIR) 2-09 tablet by ity of 10 mg 00:00: mouth in [place] tablet 00 the Medical morning. [facility] 2021-09 Yes [id number] 10mg Take 1 [facility] (SINGULAIR) 2-09 tablet by ity of 10 mg 00:00: mouth in [place] tablet 00 the Medical morning. [facility] 2021-09 Yes [id number] 10mg Take 1 [facility] (SINGULAIR) 2-09 tablet by ity of 10 mg 00:00: mouth in [place] tablet 00 the Medical morning. [facility] 2021-09 Yes [id number] 10mg Take 1 [facility] (SINGULAIR) 2-09 tablet by ity of 10 mg 00:00: mouth in [place] tablet 00 the Medical morning. [facility] 2021-09 Yes [id number] 10mg Take 1 [facility] (SINGULAIR) 2-09 tablet by ity of 10 mg 00:00: mouth in [place] tablet 00 the Medical morning. [facility] 2021-09 Yes [id number] 10mg Take 1 [facility] (SINGULAIR) 2-09 tablet by ity of 10 mg 00:00: mouth in [place] tablet 00 the Medical morning. [facility] 2021-09 Yes [id number] 10mg Take 1 [facility] (SINGULAIR) 2-09 tablet by ity of 10 mg 00:00: mouth in [place] tablet 00 the Medical morning. [facility] 2021-09 Yes [id number] 10mg Take 1 [facility] (SINGULAIR) 2-09 tablet by ity of 10 mg 00:00: mouth in [place] tablet 00 the Medical morning. Branch montelukast 2021-09 Yes [id number] 10mg Take 1 [facility] (SINGULAIR) 2-09 tablet by ity of 10 mg 00:00: mouth in [place] tablet 00 the Medical morning. Branch montelukast 2021-09 Yes [id number] 10mg Take 1 [facility] (SINGULAIR) 2-09 tablet [...] TAKE 1 Uni vers n 500 mg 2-10-19 TABLET BY ity o f tablet 00:00: 00:00 MOUTH [place]CE [place] 00 :[place] DAILY FOR Medical 7 DAYS Branch levoFLOXaci 2021-09- No TAKE 1 Uni vers n 500 mg 2-10-19 TABLET BY ity o f tablet 00:00: 00:00 MOUTH [place]CE [place] 00 :[place] DAILY FOR Medical 7 DAYS Branch levoFLOXaci 2021-09- No TAKE 1 Uni vers n 500 mg 210-19 TABLET BY ity o f tablet 00:00: 00:00 MOUTH [place]CE [place] 00 :[place] DAILY FOR Medical 7 DAYS Branch CYANOCOBALA 2021-09 Yes [id number] INJECT 1ML Univers MIN 1,000 1-30 INTRAMUSCU ity of mcg/mL 00:00: LARLY [place] injection 00 EVERY TWO Medic al WEEKS Branch CYANOCOBALA 2021-09 Yes [id number] INJECT 1ML Univers MIN 1,000 1-30 INTRAMUSCU ity of mcg/mL 00:00: LARLY [place] injection 00 EVERY TWO Medic al WEEKS Branch CYANOCOBALA 2021-09 Yes [id number] INJECT 1ML [facility] MIN 1,000 1-30 INTRAMUSCU ity of mcg/mL 00:00: LARLY [place] injection 00 EVERY TWO Medic al WEEKS Branch CYANOCOBALA 2021-09 Yes [id number] INJECT 1ML [facility] MIN 1,000 1-30 INTRAMUSCU ity of mcg/mL 00:00: LARLY [place] injection 00 EVERY TWO Medic al WEEKS Branch CYANOCOBALA 2021-09 Yes [id number] INJECT 1ML [facility] MIN 1,000 1-30 INTRAMUSCU ity of mcg/mL 00:00: LARLY [place] injection 00 EVERY TWO Medic al WEEKS Branch CYANOCOBALA 2021-09 Yes [id number] INJECT 1ML [facility] MIN 1,000 1-30 INTRAMUSCU ity of mcg/mL 00:00: LARLY [place] injection 00 EVERY TWO Medic al WEEKS Branch CYANOCOBALA 2021-09 Yes [id number] INJECT 1ML [facility] MIN 1,000 1-30 INTRAMUSCU ity of mcg/mL 00:00: LARLY [place] injection 00 EVERY TWO Medic al WEEKS Branch CYANOCOBALA 2021-09 Yes [id number] INJECT 1ML [facility] MIN 1,000 1-30 INTRAMUSCU ity of mcg/mL 00:00: LARLY [place] injection 00 EVERY TWO Medic al WEEKS Branch CYANOCOBALA 2021-09 Yes [id number] INJECT 1ML [facility] MIN 1,000 1-30 INTRAMUSCU ity of mcg/mL 00:00: LARLY [place] injection 00 EVERY TWO Medic al WEEKS Branch CYANOCOBALA 2021-09 Yes [id number] INJECT 1ML [facility] MIN 1,000 1-30 INTRAMUSCU ity of mcg/mL 00:00: LARLY [place] injection 00 EVERY TWO Medic al WEEKS Branch CYANOCOBALA 2021-09 Yes [id number] INJECT 1ML [facility] MIN 1,000 1-30 INTRAMUSCU ity of mcg/mL 00:00: LARLY [place] injection 00 EVERY TWO Medic al WEEKS Branch CYANOCOBALA 2021-09 Yes [id number] INJECT 1ML [facility] MIN 1,000 1-30 INTRAMUSCU ity of mcg/mL 00:00: LARLY [place] injection 00 EVERY TWO Medic al WEEKS Branch CYANOCOBALA 2021-09 Yes [id number] INJECT 1ML [facility] MIN 1,000 1-30 INTRAMUSCU ity of mcg/mL 00:00: LARLY [place] injection 00 EVERY TWO Medic al WEEKS Branch CYANOCOBALA 2021-09 Yes [id number] INJECT 1ML [facility] MIN 1,000 1-30 INTRAMUSCU ity of mcg/mL 00:00: LARLY [place] injection 00 EVERY TWO Medic al WEEKS Branch CYANOCOBALA 2021-09 Yes [id number] INJECT 1ML [facility] MIN 1,000 1-30 INTRAMUSCU ity of mcg/mL 00:00: LARLY [place] injection 00 EVERY TWO Medic al WEEKS Branch CYANOCOBALA 2021-09 Yes [id number] INJECT 1ML [facility] MIN 1,000 1-30 INTRAMUSCU ity of mcg/mL 00:00: LARLY [place] injection 00 EVERY TWO Medic al WEEKS Branch CYANOCOBALA 2021-09 Yes [id number] INJECT 1ML [facility] MIN 1,000 1-30 INTRAMUSCU ity of mcg/mL 00:00: LARLY [place] injection 00 EVERY TWO Medic al WEEKS Branch CYANOCOBALA 2021-09 Yes [id number] INJECT 1ML [facility] MIN 1,000 1-30 INTRAMUSCU ity of mcg/mL 00:00: LARLY [place] injection 00 EVERY TWO Medic al WEEKS Branch CYANOCOBALA 2021-09 Yes [id number] INJECT 1ML [facility] MIN 1,000 1-30 INTRAMUSCU ity of mcg/mL 00:00: LARLY [place] injection 00 EVERY TWO Medic al WEEKS Branch CYANOCOBALA 2021-09 Yes [id number] INJECT 1ML [facility] MIN 1,000 1-30 INTRAMUSCU ity of mcg/mL 00:00: LARLY [place] injection 00 EVERY TWO Medic al WEEKS Branch CYANOCOBALA 2021-09 Yes [id number] INJECT 1ML [facility] MIN 1,000 1-30 INTRAMUSCU ity of mcg/mL 00:00: LARLY [place] injection 00 EVERY TWO Medic al WEEKS Branch CYANOCOBALA 2021-09 Yes [id number] INJECT 1ML [facility] MIN 1,000 1-30 INTRAMUSCU ity of mcg/mL 00:00: LARLY [place] injection 00 EVERY TWO Medic al WEEKS Branch CYANOCOBALA 2021-09 Yes [id number] INJECT 1ML [facility] MIN 1,000 1-30 INTRAMUSCU ity of mcg/mL 00:00: LARLY [place] injection 00 EVERY TWO Medic al WEEKS Branch CYANOCOBALA 2021-09 Yes [id number] INJECT 1ML [facility] MIN 1,000 1-30 INTRAMUSCU ity of mcg/mL 00:00: LARLY [place] injection 00 EVERY TWO Medic al WEEKS Branch CYANOCOBALA 2021-09 Yes [id number] INJECT 1ML [facility] MIN 1,000 1-30 INTRAMUSCU ity of mcg/mL 00:00: LARLY [place] injection 00 EVERY TWO Medic al WEEKS Branch CYANOCOBALA 2021-09 Yes [id number] INJECT 1ML [facility] MIN 1,000 1-30 INTRAMUSCU ity of mcg/mL 00:00: LARLY [place] injection 00 EVERY TWO Medic al WEEKS Branch CYANOCOBALA 2021-09 Yes [id number] INJECT 1ML [facility] MIN 1,000 1-30 INTRAMUSCU ity of mcg/mL 00:00: LARLY [place] injection 00 EVERY TWO Medic al WEEKS Branch CYANOCOBALA 2021-09 Yes [id number] INJECT 1ML [facility] MIN 1,000 1-30 INTRAMUSCU ity of mcg/mL 00:00: LARLY [place] injection 00 EVERY TWO Medic al WEEKS Branch CYANOCOBALA 2021-09 Yes [id number] INJECT 1ML [facility] MIN 1,000 1-30 INTRAMUSCU ity of mcg/mL 00:00: LARLY [place] injection 00 EVERY TWO Medic al WEEKS Branch CYANOCOBALA 2021-09 Yes [id number] INJECT 1ML [facility] MIN 1,000 1-30 INTRAMUSCU ity of mcg/mL 00:00: LARLY [place] injection 00 EVERY TWO Medic al WEEKS Branch CYANOCOBALA 2021-09 Yes [id number] INJECT 1ML [facility] MIN 1,000 1-30 INTRAMUSCU ity of mcg/mL 00:00: LARLY [place] injection 00 EVERY TWO Medic al WEEKS Branch CYANOCOBALA 2021-09 Yes [id number] INJECT 1ML [facility] MIN 1,000 1-30 INTRAMUSCU ity of mcg/mL 00:00: LARLY [place] injection 00 EVERY TWO Medic al WEEKS Branch CYANOCOBALA 2021-09 Yes [id number] INJECT 1ML [facility] MIN 1,000 1-30 INTRAMUSCU ity of mcg/mL 00:00: LARLY [place] injection 00 EVERY TWO Medic al WEEKS Branch CYANOCOBALA 2021-09- No [id number] INJECT 1ML [facility] MIN 1,000 1-30 02-07 INTRAMUSCU ity of mcg/mL 00:00: 00:00 LARLY [place] injection 00 :00 EVERY TWO Medic al WEEKS Branch CYANOCOBALA 2021-09- No [id number] INJECT 1ML [facility] MIN 1,000 1-30 02-07 INTRAMUSCU ity of mcg/mL 00:00: 00:00 LARLY [place] injection 00 :00 EVERY TWO Medic al WEEKS Branch CYANOCOBALA 2021-09- No [id number] INJECT 1ML [facility] MIN 1,000 1-30 02-07 INTRAMUSCU ity of mcg/mL 00:00: 00:00 LARLY [place] injection 00 :00 EVERY TWO Medic al WEEKS Branch CYANOCOBALA 2021-09- No [id number] INJECT 1ML [facility] MIN 1,000 1-30 02-07 INTRAMUSCU ity of mcg/mL 00:00: 00:00 LARLY [place] injection 00 :00 EVERY TWO Medic al WEEKS Branch CYANOCOBALA 2021-09- No [id number] INJECT 1ML [facility] MIN 1,000 1-30 02-07 INTRAMUSCU ity of mcg/mL 00:00: 00:00 LARLY [place] injection 00 :00 EVERY TWO Medic al WEEKS Branch CYANOCOBALA 2021-09- No [id number] INJECT 1ML [facility] MIN 1,000 1-30 02-07 INTRAMUSCU ity of mcg/mL 00:00: 00:00 LARLY [place] injection 00 :00 EVERY TWO Medic al WEEKS Branch ondansetron [...] 1-22 TABLET BY ity of 00:00: MOUTH [place] 00 EVERY 12 Medical HOURS Branch NEEDED [...] 1-22 TABLET BY ity of 00:00: MOUTH [place] 00 EVERY 12 Medical HOURS Branch NEEDED ondansetron 2022-1 Yes TAKE 1 Univ ers 4 mg tablet 1-22 TABLET BY ity of 00:00: MOUTH [place] EVERY 12 Medical HOURS Branch NEEDED ondansetron 2022-1 Yes TAKE 1 Univ ers 4 mg tablet 1-22 TABLET BY ity of 00:00: MOUTH [place] EVERY 12 Medical HOURS Branch NEEDED ondansetron 2-1 Yes TAKE 1 Univ ers 4 mg tablet 1-22 TABLET BY ity of 00:00: MOUTH [place] 00 EVERY 12 Medical HOURS Branch NEEDED ondansetron 2-1 Yes TAKE 1 Univ ers 4 mg tablet 1-22 TABLET BY ity of 00:00: MOUTH [place] EVERY 12 Medical HOURS Branch NEEDED ondansetron 2-1 Yes TAKE 1 Univ ers 4 mg tablet 1-22 TABLET BY ity of 00:00: MOUTH [place] EVERY 12 Medical HOURS Branch NEEDED naproxen 2022-1 Yes 500mg Take 500 Univ ers 500 mg 1-18 mg by ity of tablet 00:00: mouth in [place] 00 the Medical morning Branch and 500 mg in the evening. Take with meals. naproxen 2022-1 Yes 500mg Take 500 Univ ers 500 mg 1-18 mg by ity of tablet 00:00: mouth in [place] 00 the Medical morning Branch and 500 mg in the evening. Take with meals. naproxen 2-1 Yes 500mg Take 500 Univ ers 500 mg 1-18 mg by ity of tablet 00:00: mouth in [place] 00 the Medical morning Branch and 500 [...] by ity of tablet 00:00: mouth in [place] 00 the Medical morning Branch and 500 mg in the evening. Take with meals. naproxen 2021- Yes 500mg Take 500 Univ ers 500 mg 1-18 mg by ity of tablet 00:00: mouth in [place] 00 the Medical morning Branch and 500 mg in the evening. Take with meals. naproxen 2021-09 Yes 500mg Take 500 Univ ers 500 mg 1-18 mg by ity of tablet 00:00: mouth in [place] 00 the Medical morning Branch and 500 mg in the evening. Take with meals. naproxen 2021-09- No 500mg Take 500 Uni vers 500 mg 1-18 01-23 mg by ity of tablet 00:00: 00:00 mouth in [place] 00 :00 the Medical morning Branch and 500 mg in the evening. Take with meals. naproxen 2021-09- No 500mg Take 500 Uni vers 500 mg 1-18 01-23 mg by ity of tablet 00:00: 00:00 mouth in [place] 00 :00 the Medical morning Branch and 500 mg in the evening. Take with meals. naproxen 2021-09- No 500mg Take 500 Uni vers 500 mg 1-18 01-23 mg by ity of tablet 00:00: 00:00 mouth in [place] 00 :00 the Medical morning Branch and 500 mg in the evening. Take with meals. levothyroxi 2021- Yes [id number] 50ug Take 1 [facility] ne 50 mcg 1-03 tablet by ity o f tablet 00:00: mouth [place] 00 every Medical morning. Branch levothyroxi 2021- Yes [id number] 50ug Take 1 [facility] ne 50 mcg 1-03 tablet by ity o f tablet 00:00: mouth [place] 00 every Medical morning. Branch levothyroxi 2021- Yes [id number] 50ug Take 1 [facility] ne 50 mcg 1-03 tablet by ity o f tablet 00:00: mouth [place] 00 every Medical morning. Branch levothyroxi 2021-09 Yes [id number] 50ug Take 1 [facility] ne 50 mcg 1-03 tablet by ity o f tablet 00:00: mouth [place] 00 every Medical morning. Branch levothyroxi 2021-09 Yes [id number] 50ug Take 1 [facility] ne 50 mcg 1-03 tablet by ity o f tablet 00:00: mouth [place] 00 every Medical morning. Branch levothyroxi 2021-09 Yes [id number] 50ug Take 1 [facility] ne 50 mcg 1-03 tablet by ity o f tablet 00:00: mouth [place] 00 every Medical morning. Branch levothyroxi 2021-09 Yes [id number] 50ug Take 1 [facility] ne 50 mcg 1-03 tablet by ity o f tablet 00:00: mouth [place] 00 every Medical morning. Branch levothyroxi 2021-09 Yes [id number] 50ug Take 1 [facility] ne 50 mcg 1-03 tablet by ity o f tablet 00:00: mouth [place] 00 every Medical morning. Branch levothyroxi 2021-09 Yes [id number] 50ug Take 1 [facility] ne 50 mcg 1-03 tablet by ity o f tablet 00:00: mouth [place] 00 every Medical morning. Branch levothyroxi 2021-09 Yes [id number] 50ug Take 1 [facility] ne 50 mcg 1-03 tablet by ity o f tablet 00:00: mouth [place] 00 every Medical morning. Branch levothyroxi 2021-09 Yes [id number] 50ug Take 1 [facility] ne 50 mcg 1-03 tablet by ity o f tablet 00:00: mouth [place] 00 every Medical morning. Branch levothyroxi 2021-09 Yes [id number] 50ug Take 1 [facility] ne 50 mcg 1-03 tablet by ity o f tablet 00:00: mouth [place] 00 every Medical morning. Branch levothyroxi 2021-09 Yes [id number] 50ug Take 1 [facility] ne 50 mcg 1-03 tablet by ity o f tablet 00:00: mouth [place] 00 every Medical morning. Branch levothyroxi 2021-09 Yes [id number] 50ug Take 1 [facility] ne 50 mcg 1-03 tablet by ity o f tablet 00:00: mouth [place] 00 every Medical morning. Branch levothyroxi 2021-09 Yes [id number] 50ug Take 1 [facility] ne 50 mcg 1-03 tablet by ity o f tablet 00:00: mouth [place] 00 every Medical morning. Branch levothyroxi 2021-09 Yes [id number] 50ug Take 1 [facility] ne 50 mcg 1-03 tablet by ity o f tablet 00:00: mouth [place] 00 every Medical morning. Branch levothyroxi 2021-09 Yes [id number] 50ug Take 1 [facility] ne 50 mcg 1-03 tablet by ity o f tablet 00:00: mouth [place] 00 every Medical morning. Branch levothyroxi 2021-09 Yes [id number] 50ug Take 1 [facility] ne 50 mcg 1-03 tablet by ity o f tablet 00:00: mouth [place] 00 every Medical morning. Branch levothyroxi 2021-09 Yes [id number] 50ug Take 1 [facility] ne 50 mcg 1-03 tablet by ity o f tablet 00:00: mouth [place] 00 every Medical morning. Branch levothyroxi 2021-09 Yes [id number] 50ug Take 1 [facility] ne 50 mcg 1-03 tablet by ity o f tablet 00:00: mouth [place] 00 every Medical morning. Branch levothyroxi 2021-09 Yes [id number] 50ug Take 1 [facility] ne 50 mcg 1-03 tablet by ity o f tablet 00:00: mouth [place] 00 every Medical morning. Branch levothyroxi 2021-09 Yes [id number] 50ug Take 1 [facility] ne 50 mcg 1-03 tablet by ity o f tablet 00:00: mouth [place] 00 every Medical morning. Branch levothyroxi 2021-09 Yes [id number] 50ug Take 1 [facility] ne 50 mcg 1-03 tablet by ity o f tablet 00:00: mouth [place] 00 every Medical morning. Branch levothyroxi 2021-09 Yes [id number] 50ug Take 1 [facility] ne 50 mcg 1-03 tablet by ity o f tablet 00:00: mouth [place] 00 every Medical morning. Branch levothyroxi 2021-09 Yes [id number] 50ug Take 1 [facility] ne 50 mcg 1-03 tablet by ity o f tablet 00:00: mouth [place] 00 every Medical morning. Branch levothyroxi 2021-09 Yes [id number] 50ug Take 1 [facility] ne 50 mcg 1-03 tablet by ity o f tablet 00:00: mouth [place] 00 every Medical morning. Branch levothyroxi 2021-09 Yes [id number] 50ug Take 1 [facility] ne 50 mcg 1-03 tablet by ity o f tablet 00:00: mouth [place] 00 every Medical morning. Branch levothyroxi 2021-09 Yes [id number] 50ug Take 1 [facility] ne 50 mcg 1-03 tablet by ity o f tablet 00:00: mouth [place] 00 every Medical morning. Branch levothyroxi 2021-09 Yes [id number] 50ug Take 1 [facility] ne 50 mcg 1-03 tablet by ity o f tablet 00:00: mouth [place] 00 every Medical morning. Branch levothyroxi 2021-09 Yes [id number] 50ug Take 1 [facility] ne 50 mcg 1-03 tablet by ity o f tablet 00:00: mouth [place] 00 every Medical morning. Branch levothyroxi 2021-09 Yes [id number] 50ug Take 1 [facility] ne 50 mcg 1-03 tablet by ity o f tablet 00:00: mouth [place] 00 every Medical morning. Branch levothyroxi 2021-09 Yes [id number] 50ug Take 1 [facility] ne 50 mcg 1-03 tablet by ity o f tablet 00:00: mouth [place] 00 every Medical morning. Branch levothyroxi 2021-09 Yes [id number] 50ug Take 1 [facility] ne 50 mcg 1-03 tablet by ity o f tablet 00:00: mouth [place] 00 every Medical morning. Branch levothyroxi 2021-09 Yes [id number] 50ug Take 1 [facility] ne 50 mcg 1-03 tablet by ity o f tablet 00:00: mouth [place] 00 every Medical morning. Branch levothyroxi 2021-09 Yes [id number] 50ug Take 1 [facility] ne 50 mcg 1-03 tablet by ity o f tablet 00:00: mouth [place] 00 every Medical morning. Branch levothyroxi 2021-09 Yes [id number] 50ug Take 1 [facility] ne 50 mcg 1-03 tablet by ity o f tablet 00:00: mouth [place] 00 every Medical morning. Branch levothyroxi 2021-09 Yes [id number] 50ug Take 1 [facility] ne 50 mcg 1-03 tablet by ity o f tablet 00:00: mouth [place] 00 every Medical morning. Branch levothyroxi 2021-09 Yes [id number] 50ug Take 1 [facility] ne 50 mcg 1-03 tablet by ity o f tablet 00:00: mouth [place] 00 every Medical morning. Branch levothyroxi 2021-09 Yes [id number] 50ug Take 1 [facility] ne 50 mcg 1-03 tablet by ity o f tablet 00:00: mouth [place] 00 every Medical morning. Branch levothyroxi 2021-09 Yes [id number] 50ug Take 1 [facility] ne 50 mcg 1-03 tablet by ity o f tablet 00:00: mouth [place] 00 every Medical morning. Branch levothyroxi 2021-09 Yes [id number] 50ug Take 1 [facility] ne 50 mcg 1-03 tablet by ity o f tablet 00:00: mouth [place] 00 every Medical morning. Branch levothyroxi 2021-09 Yes [id number] 50ug Take 1 [facility] ne 50 mcg 1-03 tablet by ity o f tablet 00:00: mouth [place] 00 every Medical morning. Branch levothyroxi 2021-09 Yes [id number] 50ug Take 1 [facility] ne 50 mcg 1-03 tablet by ity o f tablet 00:00: mouth [place] 00 every Medical morning. Branch levothyroxi 2021-09 Yes [id number] 50ug Take 1 [facility] ne 50 mcg 1-03 tablet by ity o f tablet 00:00: mouth [place] 00 every Medical morning. Branch levothyroxi 2021-09 Yes [id number] 50ug Take 1 [facility] ne 50 mcg 1-03 tablet by ity o f tablet 00:00: mouth [place] 00 every Medical morning. [place] levothyroxi 2021-09 Yes [id number] 50ug Take 1 [facility] ne 50 mcg 1-03 tablet by ity o f tablet 00:00: mouth [place] 00 every Medical morning. Branch levothyroxi 2021-09 Yes [id number] 50ug Take 1 [facility] ne 50 mcg 1-03 tablet by ity o f tablet 00:00: mouth [place] 00 every Medical morning. [place] DOCUSATE 2021-09 Yes Take by [facility] s SODIUM 1-01 mouth. ity of (COLACE 08:06: [place] ORAL) 37 [facility] DOCUSATE 2021-09 Yes Take by [employer] s SODIUM 1-01 mouth. ity of (COLACE 08:06: [place] ORAL) 37 [facility] DOCUSATE 2021-09 Yes Take by [facility] SODIUM 1-01 mouth. ity of (COLACE 08:06: [place] ORAL) 37 [facility] DOCUSATE 2021-09 Yes Take by [facility] [...] 08:06: [place] ORAL) 37 Medical Branch DOCUSATE 2022-1 Yes Take by [facility] s SODIUM 1-01 mouth. ity of (COLACE 08:06: [place] ORAL) 37 Medical Branch DOCUSATE 2021-09 Yes Take by [facility] s SODIUM 1-01 mouth. ity of (COLACE 08:06: [place] ORAL) 37 Medical Branch DOCUSATE 2021-09 Yes Take by [facility] s SODIUM 1-01 mouth. ity of (COLACE 08:06: [place] ORAL) 37 Medical Branch DOCUSATE 2021-09 Yes Take by [facility] s SODIUM 1-01 mouth. ity of (COLACE 08:06: [place] ORAL) 37 Medical Branch DOCUSATE 2021-09 Yes Take by [facility] s SODIUM 1-01 mouth. ity of (COLACE 08:06: [place] ORAL) 37 Medical Branch DOCUSATE 2021-09 Yes Take by [facility] s SODIUM 1- mouth. ity of (COLACE 08:06: [place] ORAL) 37 Medical Branch DOCUSATE 2021-09 Yes Take by [facility] s SODIUM 1- mouth. ity of (COLACE 08:06: [place] ORAL) 37 Medical Branch DOCUSATE 2021-09 Yes Take by [facility] s SODIUM 1-01 mouth. ity of (COLACE 08:06: [place] ORAL) 37 Medical Branch DOCUSATE 2021-09 Yes Take by [facility] s SODIUM 1-01 mouth. ity of (COLACE 08:06: [place] ORAL) [address] [place] [address] Branch diltiazem 2021-09 Yes [id number] 120mg Take 1 U nivers 120 mg 24 1-01 capsule by ity of hr capsule 00:00: mouth in [place] 00 the Medical morning Branch and 1 capsule in the evening. fluticasone 2021-09 Yes [id number] 2{puff} Inhale 2 [facility] propionate 1-01 Puffs ity of (FLOVENT 00:00: every 12 [place] HFA) 110 00 (twelve) Medical mcg/actuati hours. Branch on inhaler Rinse mouth after each use. levothyroxi 2021-09 Yes [id number] 50ug Take 1 [facility] ne 50 mcg 1-01 tablet by ity o f tablet 00:00: mouth [place] 00 every Medical morning. Branch metformin 2021-09 Yes [id number] 500mg Take 1 U nivers ER 500 mg 1-01 tablet by ity o f 24 hr 00:00: mouth [place] tablet 00 daily with Medical breakfast. Branch pantoprazol 2021-09 Yes [id number] 40mg Take 1 [facility] e 40 mg EC 1-01 tablet by ity of tablet 00:00: mouth in [place] 00 the Medical morning. Branch pregabalin 2021-09 Yes [id number] 150mg Take 1 [facility] 150 mg 1-01 capsule by ity of capsule 00:00: mouth in [place] 00 the Medical morning Branch and 1 capsule at noon and 1 capsule in the evening. rosuvastati 2021-09 Yes [id number] 10mg Take 1 [facility] n 10 mg 1-01 tablet by ity of tablet 00:00: mouth at [place] 00 bedtime. Medical Branch SUMAtriptan 2021-09 Yes [id number] 50mg Take 1 [facility] 50 mg 1-01 tablet by ity of tablet 00:00: mouth as [place] 00 needed for Medical Migraine. Branch diltiazem 2021-09 Yes [id number] 120mg Take 1 U nivers 120 mg 24 1- capsule by ity of hr capsule 00:00: mouth in [facility] as 00 the Medical morning Branch and 1 capsule in the evening. fluticasone 2021-09 Yes [id number] 2{puff} Inhale 2 [facility] propionate 1-01 Puffs ity of (FLOVENT 00:00: every 12 [place] HFA) 110 00 (twelve) Medical mcg/actuati hours. Branch on inhaler Rinse mouth after each use. levothyroxi 2021-09 Yes [id number] 50ug Take 1 [facility] ne 50 mcg 1-01 tablet by ity o f tablet 00:00: mouth [place] 00 every Medical morning. Branch metformin 2021-09 Yes [id number] 500mg Take 1 U nivers ER 500 mg 1-01 tablet by ity o f 24 hr 00:00: mouth [place] tablet 00 daily with Medical breakfast. Branch pantoprazol 2021-09 Yes [id number] 40mg Take 1 [facility] e 40 mg EC 1-01 tablet by ity of tablet 00:00: mouth in [place] 00 the Medical morning. Branch pregabalin 2021-09 Yes [id number] 150mg Take 1 [facility] 150 mg 1-01 capsule by ity of capsule 00:00: mouth in [place] 00 the Medical morning Branch and 1 capsule at noon and 1 capsule in the evening. rosuvastati 2021-09 Yes [id number] 10mg Take 1 [facility] n 10 mg 1-01 tablet by ity of tablet 00:00: mouth at [place] [address] bedtime. Medical Branch SUMAtriptan 2021-09 Yes [id number] 50mg Take 1 [facility] 50 mg 1-01 tablet by ity of tablet 00:00: mouth as [place] 00 needed for Medical Migraine. Branch diltiazem 2021-09 Yes [id number] 120mg Take 1 U nivers 120 mg 24 1-01 capsule by ity of hr capsule 00:00: mouth in [place] as 00 the Medical morning Branch and 1 capsule in the evening. fluticasone 2021-09 Yes [id number] 2{puff} Inhale 2 [facility] propionate 1-01 Puffs ity of (FLOVENT 00:00: every 12 [place] HFA) 110 00 (twelve) Medical mcg/actuati hours. Branch on inhaler Rinse mouth after each use. metformin 2021-09 Yes [id number] 500mg Take 1 U nivers ER 500 mg 1-01 tablet by ity o f 24 hr 00:00: mouth [place] tablet 00 daily with Medical breakfast. Branch pantoprazol 2021-09 Yes [id number] 40mg Take 1 [facility] e 40 mg EC 1-01 tablet by ity of tablet 00:00: mouth in [place] 00 the Medical morning. Branch pregabalin 2021-09 Yes [id number] 150mg Take 1 [facility] 150 mg 1-01 capsule by ity of capsule 00:00: mouth in [place] 00 the Medical morning Branch and 1 capsule at noon and 1 capsule in the evening. rosuvastati 2021-09 Yes [id number] 10mg Take 1 [facility] n 10 mg 1-01 tablet by ity of tablet 00:00: mouth at [place] [address] bedtime. Medical Branch SUMAtriptan 2021-09 Yes [id number] 50mg Take 1 [facility] 50 mg 1-01 tablet by ity of tablet 00:00: mouth as [place] 00 needed for Medical Migraine. Branch diltiazem 2021-09 Yes [id number] 120mg Take 1 U nivers 120 mg 24 1-01 capsule by ity of hr capsule 00:00: mouth in [place] as 00 the Medical morning Branch and 1 capsule in the evening. fluticasone 2021-09 Yes [id number] 2{puff} Inhale 2 [facility] propionate 1-01 Puffs ity of (FLOVENT 00:00: every 12 [place] HFA) 110 00 (twelve) Medical mcg/actuati hours. Branch on inhaler Rinse mouth after each use. metformin 2021-09 Yes [id number] 500mg Take 1 U nivers ER 500 mg 1-01 tablet by ity o f 24 hr 00:00: mouth [place] tablet 00 daily with Medical breakfast. Branch pantoprazol 2021-09 Yes [id number] 40mg Take 1 [facility] e 40 mg EC 1-01 tablet by ity of tablet 00:00: mouth in [place] 00 the Medical morning. Branch pregabalin 2021-09 Yes [id number] 150mg Take 1 [facility] 150 mg 1-01 capsule by ity of capsule 00:00: mouth in [place] 00 the Medical morning Branch and 1 capsule at noon and 1 capsule in the evening. rosuvastati 2021-09 Yes [id number] 10mg Take 1 [facility] n 10 mg 1-01 tablet by ity of tablet 00:00: mouth at [place] 00 bedtime. Medical Branch SUMAtriptan 2021-09 Yes [id number] 50mg Take 1 [facility] 50 mg 1-01 tablet by ity of tablet 00:00: mouth as [place] 00 needed for Medical Migraine. Branch diltiazem 2021-09 Yes [id number] 120mg Take 1 U nivers 120 mg 24 1-01 capsule by ity of hr capsule 00:00: mouth in [place] 00 the Medical morning Branch and 1 capsule in the evening. fluticasone 2021-09 Yes [id number] 2{puff} Inhale 2 [facility] propionate 1-01 Puffs ity of (FLOVENT 00:00: every 12 [place] HFA) 110 00 (twelve) Medical mcg/actuati hours. Branch on inhaler Rinse mouth after each use. metformin 2021-09 Yes [id number] 500mg Take 1 U nivers ER 500 mg 1-01 tablet by ity o f 24 hr 00:00: mouth [place] tablet 00 daily with Medical breakfast. Branch pantoprazol 2021-09 Yes [id number] 40mg Take 1 [facility] e 40 mg EC 1-01 tablet by ity of tablet 00:00: mouth in [place] 00 the Medical morning. Branch pregabalin 2021-09 Yes [id number] 150mg Take 1 [facility] 150 mg 1-01 capsule by ity of capsule 00:00: mouth in [place] 00 the Medical morning Branch and 1 capsule at noon and 1 capsule in the evening. rosuvastati 2021-09 Yes [id number] 10mg Take 1 [facility] n 10 mg 1-01 tablet by ity of tablet 00:00: mouth at [place] 00 bedtime. Medical Branch SUMAtriptan 2021-09 Yes [id number] 50mg Take 1 [facility] 50 mg 1-01 tablet by ity of tablet 00:00: mouth as [place] 00 needed for Medical Migraine. Branch diltiazem 2021-09 Yes [id number] 120mg Take 1 U nivers 120 mg 24 1-01 capsule by ity of hr capsule 00:00: mouth in [facility] as 00 the Medical morning Branch and 1 capsule in the evening. fluticasone 2021-09 Yes [id number] 2{puff} Inhale 2 [facility] propionate 1-01 Puffs ity of (FLOVENT 00:00: every 12 [place] HFA) 110 00 (twelve) Medical mcg/actuati hours. Branch on inhaler Rinse mouth after each use. metformin 2021-09 Yes [id number] 500mg Take 1 U nivers ER 500 mg 1-01 tablet by ity o f 24 hr 00:00: mouth [place] tablet 00 daily with Medical breakfast. Branch pantoprazol 2021-09 Yes [id number] 40mg Take 1 [facility] e 40 mg EC 1-01 tablet by ity of tablet 00:00: mouth in [place] 00 the Medical morning. Branch pregabalin 2021-09 Yes [id number] 150mg Take 1 [facility] 150 mg 1-01 capsule by ity of capsule 00:00: mouth in [place] 00 the Medical morning Branch and 1 capsule at noon and 1 capsule in the evening. rosuvastati 2021-09 Yes [id number] 10mg Take 1 [facility] n 10 mg 1-01 tablet by ity of tablet 00:00: mouth at [place] [address] bedtime. Medical Branch SUMAtriptan 2021-09 Yes [id number] 50mg Take 1 [facility] 50 mg 1-01 tablet by ity of tablet 00:00: mouth as [place] 00 needed for Medical Migraine. Branch diltiazem 2021-09 Yes [id number] 120mg Take 1 U nivers 120 mg 24 1-01 capsule by ity of hr capsule 00:00: mouth in [facility] as 00 the Medical morning Branch and 1 capsule in the evening. fluticasone 2021-09 Yes [id number] 2{puff} Inhale 2 [facility] propionate 1-01 Puffs ity of (FLOVENT 00:00: every 12 [place] HFA) 110 00 (twelve) Medical mcg/actuati hours. Branch on inhaler Rinse mouth after each use. metformin 2021-09 Yes [id number] 500mg Take 1 U nivers ER 500 mg 1-01 tablet by ity o f 24 hr 00:00: mouth [place] tablet 00 daily with Medical breakfast. Branch pantoprazol 2021-09 Yes [id number] 40mg Take 1 [facility] e 40 mg EC 1-01 tablet by ity of tablet 00:00: mouth in [place] 00 the Medical morning. Branch pregabalin 2021-09 Yes [id number] 150mg Take 1 [facility] 150 mg 1-01 capsule by ity of capsule 00:00: mouth in [place] 00 the Medical morning Branch and 1 capsule at noon and 1 capsule in the evening. rosuvastati 2021-09 Yes [id number] 10mg Take 1 [facility] n 10 mg 1-01 tablet by ity of tablet 00:00: mouth at [place] 00 bedtime. Medical Branch SUMAtriptan 2021-09 Yes [id number] 50mg Take 1 [facility] 50 mg 1-01 tablet by ity of tablet 00:00: mouth as [place] 00 needed for Medical Migraine. Branch diltiazem 2021-09 Yes [id number] 120mg Take 1 U nivers 120 mg 24 1-01 capsule by ity of hr capsule 00:00: mouth in [facility] as 00 the Medical morning Branch and 1 capsule in the evening. fluticasone 2021-09 Yes [id number] 2{puff} Inhale 2 [facility] propionate 1-01 Puffs ity of (FLOVENT 00:00: every 12 [place] HFA) 110 00 (twelve) Medical mcg/actuati hours. Branch on inhaler Rinse mouth after each use. metformin 2021-09 Yes [id number] 500mg Take 1 U nivers ER 500 mg 1-01 tablet by ity o f 24 hr 00:00: mouth [place] tablet 00 daily with Medical breakfast. Branch pantoprazol 2021-09 Yes [id number] 40mg Take 1 [facility] e 40 mg EC 1-01 tablet by ity of tablet 00:00: mouth in [place] 00 the Medical morning. Branch pregabalin 2021-09 Yes [id number] 150mg Take 1 [facility] 150 mg 1-01 capsule by ity of capsule 00:00: mouth in [place] 00 the Medical morning Branch and 1 capsule at noon and 1 capsule in the evening. rosuvastati 2021-09 Yes [id number] 10mg Take 1 [facility] n 10 mg 1-01 tablet by ity of tablet 00:00: mouth at [place] 00 bedtime. Medical Branch SUMAtriptan 2021-09 Yes [id number] 50mg Take 1 [facility] 50 mg 1-01 tablet by ity of tablet 00:00: mouth as [place] 00 needed for Medical Migraine. Branch diltiazem 2021-09 Yes [id number] 120mg Take 1 U nivers 120 mg 24 1-01 capsule by ity of hr capsule 00:00: mouth in [place] 00 the Medical morning Branch and 1 capsule in the evening. fluticasone 2021-09 Yes [id number] 2{puff} Inhale 2 [facility] propionate 1-01 Puffs ity of (FLOVENT 00:00: every 12 [place] HFA) 110 00 (twelve) Medical mcg/actuati hours. Branch on inhaler Rinse mouth after each use. metformin 2021-09 Yes [id number] 500mg Take 1 U nivers ER 500 mg 1-01 tablet by ity o f 24 hr 00:00: mouth [place] tablet 00 daily with Medical breakfast. Branch pantoprazol 2021-09 Yes [id number] 40mg Take 1 [facility] e 40 mg EC 1-01 tablet by ity of tablet 00:00: mouth in [place] 00 the Medical morning. Branch pregabalin 2021-09 Yes [id number] 150mg Take 1 [facility] 150 mg 1-01 capsule by ity of capsule 00:00: mouth in [place] 00 the Medical morning Branch and 1 capsule at noon and 1 capsule in the evening. rosuvastati 2021-09 Yes [id number] 10mg Take 1 [facility] n 10 mg 1-01 tablet by ity of tablet 00:00: mouth at [place] [address] bedtime. Medical Branch SUMAtriptan 2021-09 Yes [id number] 50mg Take 1 [facility] 50 mg 1-01 tablet by ity of tablet 00:00: mouth as [place] 00 needed for Medical Migraine. Branch diltiazem 2021-09 Yes [id number] 120mg Take 1 U nivers 120 mg 24 1-01 capsule by ity of hr capsule 00:00: mouth in [place] 00 the Medical morning Branch and 1 capsule in the evening. fluticasone 2021-09 Yes [id number] 2{puff} Inhale 2 [facility] propionate 1-01 Puffs ity of (FLOVENT 00:00: every 12 [place] HFA) 110 00 (twelve) Medical mcg/actuati hours. Branch on inhaler Rinse mouth after each use. metformin 2021-09 Yes [id number] 500mg Take 1 U nivers ER 500 mg 1-01 tablet by ity o f 24 hr 00:00: mouth [place] tablet 00 daily with Medical breakfast. Branch pantoprazol 2021-09 Yes [id number] 40mg Take 1 [facility] e 40 mg EC 1-01 tablet by ity of tablet 00:00: mouth in [place] 00 the Medical morning. Branch pregabalin 2021-09 Yes [id number] 150mg Take 1 [facility] 150 mg 1-01 capsule by ity of capsule 00:00: mouth in [place] 00 the Medical morning Branch and 1 capsule at noon and 1 capsule in the evening. rosuvastati 2021-09 Yes [id number] 10mg Take 1 [facility] n 10 mg 1-01 tablet by ity of tablet 00:00: mouth at [place] 00 bedtime. Medical Branch SUMAtriptan 2021-09 Yes [id number] 50mg Take 1 [facility] 50 mg 1-01 tablet by ity of tablet 00:00: mouth as [place] 00 needed for Medical Migraine. Branch diltiazem 2021-09 Yes [id number] 120mg Take 1 U nivers 120 mg 24 1-01 capsule by ity of hr capsule 00:00: mouth in [facility] as 00 the Medical morning Branch and 1 capsule in the evening. fluticasone 2021-09 Yes [id number] 2{puff} Inhale 2 [facility] propionate 1-01 Puffs ity of (FLOVENT 00:00: every 12 [place] HFA) 110 00 (twelve) Medical mcg/actuati hours. Branch on inhaler Rinse mouth after each use. metformin 2021-09 Yes [id number] 500mg Take 1 U nivers ER 500 mg 1-01 tablet by ity o f 24 hr 00:00: mouth [place] tablet 00 daily with Medical breakfast. Branch pantoprazol 2021-09 Yes [id number] 40mg Take 1 [facility] e 40 mg EC 1-01 tablet by ity of tablet 00:00: mouth in [place] 00 the Medical morning. Branch pregabalin 2021-09 Yes [id number] 150mg Take 1 [facility] 150 mg 1-01 capsule by ity of capsule 00:00: mouth in [place] 00 the Medical morning Branch and 1 capsule at noon and 1 capsule in the evening. rosuvastati 2021-09 Yes [id number] 10mg Take 1 [facility] n 10 mg 1-01 tablet by ity of tablet 00:00: mouth at [place] 00 bedtime. Medical Branch SUMAtriptan 2021-09 Yes [id number] 50mg Take 1 [facility] 50 mg 1-01 tablet by ity of tablet 00:00: mouth as [place] 00 needed for Medical Migraine. Branch diltiazem 2021-09 Yes [id number] 120mg Take 1 U nivers 120 mg 24 1-01 capsule by ity of hr capsule 00:00: mouth in [facility] as 00 the Medical morning Branch and 1 capsule in the evening. fluticasone 2021-09 Yes [id number] 2{puff} Inhale 2 [facility] propionate 1-01 Puffs ity of (FLOVENT 00:00: every 12 [place] HFA) 110 00 (twelve) Medical mcg/actuati hours. Branch on inhaler Rinse mouth after each use. metformin 2021-09 Yes [id number] 500mg Take 1 U nivers ER 500 mg 1-01 tablet by ity o f 24 hr 00:00: mouth [place] tablet 00 daily with Medical breakfast. Branch pantoprazol 2021-09 Yes [id number] 40mg Take 1 [facility] e 40 mg EC 1-01 tablet by ity of tablet 00:00: mouth in [place] 00 the Medical morning. Branch pregabalin 2021-09 Yes [id number] 150mg Take 1 [facility] 150 mg 1-01 capsule by ity of capsule 00:00: mouth in [place] 00 the Medical morning Branch and 1 capsule at noon and 1 capsule in the evening. rosuvastati 2021-09 Yes [id number] 10mg Take 1 [facility] n 10 mg 1-01 tablet by ity of tablet 00:00: mouth at [place] [address] bedtime. Medical Branch SUMAtriptan 2021-09 Yes [id number] 50mg Take 1 [facility] 50 mg 1-01 tablet by ity of tablet 00:00: mouth as [place] 00 needed for Medical Migraine. Branch diltiazem 2021-09 Yes [id number] 120mg Take 1 U nivers 120 mg 24 1-01 capsule by ity of hr capsule 00:00: mouth in [place] as 00 the Medical morning Branch and 1 capsule in the evening. fluticasone 2021-09 Yes [id number] 2{puff} Inhale 2 [facility] propionate 1-01 Puffs ity of (FLOVENT 00:00: every 12 [place] [facility]) 110 00 (twelve) Medical mcg/actuati hours. Branch on inhaler Rinse mouth after each use. metformin 2021-09 Yes [id number] 500mg Take 1 U nivers ER 500 mg 1-01 tablet by ity o f 24 hr 00:00: mouth [place] tablet 00 daily with Medical breakfast. Branch pantoprazol 2021-09 Yes [id number] 40mg Take 1 [facility] e 40 mg EC 1-01 tablet by ity of tablet 00:00: mouth in [place] 00 the Medical morning. Branch pregabalin 2021-09 Yes [id number] 150mg Take 1 [facility] 150 mg 1-01 capsule by ity of capsule 00:00: mouth in [place] 00 the Medical morning Branch and 1 capsule at noon and 1 capsule in the evening. rosuvastati 2021-09 Yes [id number] 10mg Take 1 Univers n 10 mg 1-01 tablet by [facility] of tablet 00:00: mouth at [place] 00 bedtime. Medical Branch SUMAtriptan 2021-09 Yes [id number] 50mg Take 1 [facility] 50 mg 1-01 tablet by [facility] of tablet 00:00: mouth as [place] 00 needed for Medical Migraine. Branch diltiazem 2021-09 Yes [id number] 120mg Take 1 [facility] 120 mg 24 1-01 capsule by [facility] hr capsule 00:00: mouth in [place] 00 the Medical morning Branch and 1 capsule in the evening. fluticasone 2021-09 Yes [id number] 2{puff} Inhale 2 [facility] propionate 1-01 Puffs ity of (FLOVENT 00:00: every 12 [place] [facility]FA) 110 00 (twelve) Medical mcg/actuati hours. Branch on inhaler Rinse mouth after each use. metformin 2021-09 Yes [id number] 500mg Take 1 [facility] nivers ER 500 mg 1-01 tablet by it[facility] o f 24 hr 00:00: mouth [place] tablet 00 daily with Medical breakfast. Branch pantoprazol 2021-09 Yes [id number] 40mg Take 1 [facility] e 40 mg EC 1-01 tablet by [facility] of tablet 00:00: mouth in [place] 00 the Medical morning. Branch rosuvastati 2021-09 Yes [id number] 10mg Take 1 [facility] n 10 mg 1-01 tablet by [facility] of tablet 00:00: mouth at [place] 00 bedtime. Medical Branch SUMAtriptan 2021-09 Yes [id number] 50mg Take 1 [facility] 50 mg 1-01 tablet by [facility] of tablet 00:00: mouth as [place] 00 needed for Medical Migraine. Branch diltiazem 2021-09 Yes [id number] 120mg Take 1 [facility] 120 mg 24 1-01 capsule by [facility] hr capsule 00:00: mouth in [place] 00 the Medical morning Branch and 1 capsule in the evening. fluticasone 2021-09 Yes [id number] 2{puff} Inhale 2 [facility] propionate 1-01 Puffs ity of (FLOVENT 00:00: every 12 [place] [facility]FA) 110 00 (twelve) Medical mcg/actuati hours. Branch on inhaler Rinse mouth after each use. metformin 2021-09 Yes [id number] 500mg Take 1 [facility] ER 500 mg 1-01 tablet by ity o f 24 hr 00:00: mouth [place] tablet 00 daily with Medical breakfast. Branch pantoprazol 2021-09 Yes [id number] 40mg Take 1 [facility] e 40 mg EC 1-01 tablet by [facility] of tablet 00:00: mouth in [place] 00 the Medical morning. Branch rosuvastati 2021-09 Yes [id number] 10mg Take 1 [facility] n 10 mg 1-01 tablet by [facility] of tablet 00:00: mouth at [place] 00 bedtime. Medical Branch SUMAtriptan 2021-09 Yes [id number] 50mg Take 1 [facility] 50 mg 1-01 tablet by [facility] of tablet 00:00: mouth as [place] 00 needed for Medical Migraine. Branch diltiazem 2021-09 Yes [id number] 120mg Take 1 [facility] 120 mg 24 1-01 capsule by [facility] of hr capsule 00:00: mouth in [place] 00 the Medical morning Branch and 1 capsule in the evening. fluticasone 2021-09 Yes [id number] 2{puff} Inhale 2 [facility] propionate 1-01 Puffs ity of (FLOVENT 00:00: every 12 [place] HFA) 110 00 (twelve) Medical mcg/actuati hours. Branch on inhaler Rinse mouth after each use. metformin 2021-09 Yes [id number] 500mg Take 1 [facility] ER 500 mg 1-01 tablet by [facility] o f 24 hr 00:00: mouth [place] tablet 00 daily with Medical breakfast. Branch pantoprazol 2021-09 Yes [id number] 40mg Take 1 [facility] e 40 mg EC 1-01 tablet by [facility] of tablet 00:00: mouth in [place] 00 the Medical morning. Branch rosuvastati 2021-09 Yes [id number] 10mg Take 1 [facility] n 10 mg 1-01 tablet by [facility] of tablet 00:00: mouth at [place] 00 bedtime. Medical Branch SUMAtriptan 2021-09 Yes [id number] 50mg Take 1 [facility] 50 mg 1-01 tablet by [facility] of tablet 00:00: mouth as [place] 00 needed for Medical Migraine. Branch diltiazem 2021-09 Yes [id number] 120mg Take 1 [facility] 120 mg 24 1-01 capsule by [facility] of hr capsule 00:00: mouth in [place] 00 the Medical morning Branch and 1 capsule in the evening. fluticasone 2021-09 Yes [id number] 2{puff} Inhale 2 [facility] propionate 1-01 Puffs ity of (FLOVENT 00:00: every 12 [place] [facility]FA) 110 00 (twelve) Medical mcg/actuati hours. Branch on inhaler Rinse mouth after each use. metformin 2021-09 Yes [id number] 500mg Take 1 [facility] n[facility] ER 500 mg 1-01 tablet by ity o f 24 hr 00:00: mouth [place] tablet 00 daily with Medical breakfast. Branch pantoprazol 2021-09 Yes [id number] 40mg Take 1 [facility] e 40 mg EC 1-01 tablet by [facility] of tablet 00:00: mouth in [place] 00 the Medical morning. Branch rosuvastati 2021-09 Yes [id number] 10mg Take 1 [facility] n 10 mg 1-01 tablet by [facility] of tablet 00:00: mouth at [place] 00 bedtime. Medical Branch SUMAtriptan 2021-09 Yes [id number] 50mg Take 1 [facility] 50 mg 1-01 tablet by [facility] of tablet 00:00: mouth as [place] 00 needed for Medical Migraine. Branch diltiazem 2021-09 Yes [id number] 120mg Take 1 [facility] 120 mg 24 1-01 capsule by [facility] of hr capsule 00:00: mouth in [place] 00 the Medical morning Branch and 1 capsule in the evening. fluticasone 2021-09 Yes [id number] 2{puff} Inhale 2 [facility] propionate 1-01 Puffs ity of (FLOVENT 00:00: every 12 [place] HFA) 110 00 (twelve) Medical mcg/actuati hours. Branch on inhaler Rinse mouth after each use. metformin 2021-09 Yes [id number] 500mg Take 1 [facility] ER 500 mg 1-01 tablet by [facility] o f 24 hr 00:00: mouth [place] tablet 00 daily with Medical breakfast. Branch pantoprazol 2021-09 Yes [id number] 40mg Take 1 [facility] e 40 mg EC 1-01 tablet by [facility] of tablet 00:00: mouth in [place] 00 the Medical morning. Branch rosuvastati 2021-09 Yes [id number] 10mg Take 1 [facility] n 10 mg 1-01 tablet by [facility] of tablet 00:00: mouth at [place] 00 bedtime. Medical Branch SUMAtriptan 2021-09 Yes [id number] 50mg Take 1 [facility] 50 mg 1-01 tablet by [facility] of tablet 00:00: mouth as [place] 00 needed for Medical Migraine. Branch diltiazem 2021-09 Yes [id number] 120mg Take 1 [facility] 120 mg 24 1-01 capsule by [facility] of hr capsule 00:00: mouth in [place] 00 the Medical morning Branch and 1 capsule in the evening. fluticasone 2021-09 Yes [id number] 2{puff} Inhale 2 [facility] propionate 1-01 Puffs ity of (FLOVENT 00:00: every 12 [place] HFA) 110 00 (twelve) Medical mcg/actuati hours. Branch on inhaler Rinse mouth after each use. metformin 2021-09 Yes [id number] 500mg Take 1 [facility] ER 500 mg 1-01 tablet by [facility] o f 24 hr 00:00: mouth [place] tablet 00 daily with Medical breakfast. Branch pantoprazol 2021-09 Yes [id number] 40mg Take 1 [facility] e 40 mg EC 1-01 tablet by [facility] of tablet 00:00: mouth in [place] 00 the Medical morning. Branch rosuvastati 2021-09 Yes [id number] 10mg Take 1 [facility] n 10 mg 1-01 tablet by [facility] of tablet 00:00: mouth at [place] 00 bedtime. Medical Branch SUMAtriptan 2021-09 Yes [id number] 50mg Take 1 [facility] 50 mg 1-01 tablet by [facility] of tablet 00:00: mouth as [place] 00 needed for Medical Migraine. Branch diltiazem 2021-09 Yes [id number] 120mg Take 1 [facility] 120 mg 24 1-01 capsule by [facility] of hr capsule 00:00: mouth in [place] 00 the Medical morning Branch and 1 capsule in the evening. fluticasone 2021-09 Yes [id number] 2{puff} Inhale 2 [facility] propionate 1-01 Puffs ity of (FLOVENT 00:00: every 12 [place] HFA) 110 00 (twelve) Medical mcg/actuati hours. Branch on inhaler Rinse mouth after each use. metformin 2021-09 Yes [id number] 500mg Take 1 [facility] n[facility] ER 500 mg 1-01 tablet by [facility] o f 24 hr 00:00: mouth [place] tablet 00 daily with Medical breakfast. Branch pantoprazol 2021-09 Yes [id number] 40mg Take 1 [facility] e 40 mg EC 1-01 tablet by [facility] of tablet 00:00: mouth in [place] 00 the Medical morning. Branch rosuvastati 2021-09 Yes [id number] 10mg Take 1 [facility] n 10 mg 1-01 tablet by [facility] of tablet 00:00: mouth at [place] [address] bedtime. Medical Branch SUMAtriptan 2021-09 Yes [id number] 50mg Take 1 [facility] 50 mg 1-01 tablet by [facility] of tablet 00:00: mouth as [place] 00 needed for Medical Migraine. Branch diltiazem 2021-09 Yes [id number] 120mg Take 1 [facility] 120 mg 24 1-01 capsule by [facility] of hr capsule 00:00: mouth in [place] 00 the Medical morning Branch and 1 capsule in the evening. fluticasone 2021-09 Yes [id number] 2{puff} Inhale 2 [facility] propionate 1-01 Puffs ity of (FLOVENT 00:00: every 12 [place] HFA) 110 00 (twelve) Medical mcg/actuati hours. Branch on inhaler Rinse mouth after each use. metformin 2021-09 Yes [id number] 500mg Take 1 [facility] ER 500 mg 1-01 tablet by it[facility] o f 24 hr 00:00: mouth [place] tablet 00 daily with Medical breakfast. Branch pantoprazol 2021-09 Yes [id number] 40mg Take 1 [facility] e 40 mg EC 1-01 tablet by [facility] of tablet 00:00: mouth in [place] 00 the Medical morning. Branch rosuvastati 2021-09 Yes [id number] 10mg Take 1 [facility] n 10 mg 1-01 tablet by [facility] of tablet 00:00: mouth at [place] [address] bedtime. Medical Branch SUMAtriptan 2021-09 Yes [id number] 50mg Take 1 [facility] 50 mg 1-01 tablet by [facility] of tablet 00:00: mouth as [place] 00 needed for Medical Migraine. Branch diltiazem 2021-09 Yes [id number] 120mg Take 1 [facility] 120 mg 24 1-01 capsule by [facility] of hr capsule 00:00: mouth in [place] 00 the Medical morning Branch and 1 capsule in the evening. fluticasone 2021-09 Yes [id number] 2{puff} Inhale 2 [facility] propionate 1-01 Puffs ity of (FLOVENT 00:00: every 12 [place] HFA) 110 00 (twelve) Medical mcg/actuati hours. Branch on inhaler Rinse mouth after each use. metformin 2021-09 Yes [id number] 500mg Take 1 [facility] n[facility] ER 500 mg 1-01 tablet by [facility] o f 24 hr 00:00: mouth [place] tablet 00 daily with Medical breakfast. Branch pantoprazol 2021-09 Yes [id number] 40mg Take 1 [facility] e 40 mg EC 1-01 tablet by [facility] of tablet 00:00: mouth in [place] 00 the Medical morning. Branch rosuvastati 2021-09 Yes [id number] 10mg Take 1 [facility] n 10 mg 1-01 tablet by [facility] of tablet 00:00: mouth at [place] [address] bedtime. Medical Branch SUMAtriptan 2021-09 Yes [id number] 50mg Take 1 [facility] 50 mg 1-01 tablet by [facility] of tablet 00:00: mouth as [place] 00 needed for Medical Migraine. Branch diltiazem 2021-09 Yes [id number] 120mg Take 1 [facility] 120 mg 24 1-01 capsule by [facility] of hr capsule 00:00: mouth in [place] 00 the Medical morning Branch and 1 capsule in the evening. fluticasone 2021-09 Yes [id number] 2{puff} Inhale 2 [facility] propionate 1-01 Puffs ity of (FLOVENT 00:00: every 12 [place] HFA) 110 00 (twelve) Medical mcg/actuati hours. Branch on inhaler Rinse mouth after each use. metformin 2021-09 Yes [id number] 500mg Take 1 [facility] n[facility] ER 500 mg 1-01 tablet by ity o f 24 hr 00:00: mouth [place] tablet 00 daily with Medical breakfast. Branch pantoprazol 2021-09 Yes [id number] 40mg Take 1 [facility] e 40 mg EC 1-01 tablet by [facility] of tablet 00:00: mouth in [place] 00 the Medical morning. Branch rosuvastati 2021-09 Yes [id number] 10mg Take 1 [facility] n 10 mg 1-01 tablet by ity of tablet 00:00: mouth at [place] 00 bedtime. Medical Branch SUMAtriptan 2021-09 Yes [id number] 50mg Take 1 [facility] 50 mg 1-01 tablet by ity of tablet 00:00: mouth as [place] 00 needed for Medical Migraine. Branch diltiazem 2021-09 Yes [id number] 120mg Take 1 [facility] 120 mg 24 1-01 capsule by [facility] of hr capsule 00:00: mouth in [place] 00 the Medical morning Branch and 1 capsule in the evening. fluticasone 2021-09 Yes [id number] 2{puff} Inhale 2 [facility] propionate 1-01 Puffs ity of (FLOVENT 00:00: every 12 [place] HFA) 110 00 (twelve) Medical mcg/actuati hours. Branch on inhaler Rinse mouth after each use. metformin 2021-09 Yes [id number] 500mg Take 1 [facility] nivers ER 500 mg 1-01 tablet by ity o f 24 hr 00:00: mouth [place] tablet 00 daily with Medical breakfast. Branch pantoprazol 2021-09 Yes [id number] 40mg Take 1 [facility] e 40 mg EC 1-01 tablet by ity of tablet 00:00: mouth in [place] 00 the Medical morning. Branch rosuvastati 2021-09 Yes [id number] 10mg Take 1 [facility] n 10 mg 1-01 tablet by ity of tablet 00:00: mouth at [place] 00 bedtime. Medical Branch SUMAtriptan 2021-09 Yes [id number] 50mg Take 1 [facility] 50 mg 1-01 tablet by ity of tablet 00:00: mouth as [place] 00 needed for Medical Migraine. Branch diltiazem 2021-09 Yes [id number] 120mg Take 1 [facility] 120 mg 24 1-01 capsule by [facility] of hr capsule 00:00: mouth in [place] 00 the Medical morning Branch and 1 capsule in the evening. fluticasone 2021-09 Yes [id number] 2{puff} Inhale 2 [facility] propionate 1-01 Puffs ity of (FLOVENT 00:00: every 12 [place] HFA) 110 00 (twelve) Medical mcg/actuati hours. Branch on inhaler Rinse mouth after each use. metformin 2021-09 Yes [id number] 500mg Take 1 [facility] nivers ER 500 mg 1-01 tablet by ity o f 24 hr 00:00: mouth [place] tablet 00 daily with Medical breakfast. Branch pantoprazol 2021-09 Yes [id number] 40mg Take 1 [facility] e 40 mg EC 1-01 tablet by [facility] of tablet 00:00: mouth in [place] 00 the Medical morning. Branch rosuvastati 2021-09 Yes [id number] 10mg Take 1 [facility] n 10 mg 1-01 tablet by [facility] of tablet 00:00: mouth at [place] 00 bedtime. Medical Branch SUMAtriptan 2021-09 Yes [id number] 50mg Take 1 [facility] 50 mg 1-01 tablet by ity of tablet 00:00: mouth as [place] 00 needed for Medical Migraine. Branch diltiazem 2021-09 Yes [id number] 120mg Take 1 [facility] n[facility] 120 mg 24 1-01 capsule by [facility] of hr capsule 00:00: mouth in [place] 00 the Medical morning Branch and 1 capsule in the evening. fluticasone 2021-09 Yes [id number] 2{puff} Inhale 2 [facility] propionate 1-01 Puffs ity of (FLOVENT 00:00: every 12 [place] HFA) 110 00 (twelve) Medical mcg/actuati hours. Branch on inhaler Rinse mouth after each use. metformin 2021-09 Yes [id number] 500mg Take 1 [facility] nivers ER 500 mg 1-01 tablet by ity o f 24 hr 00:00: mouth [place] tablet 00 daily with Medical breakfast. Branch pantoprazol 2021-09 Yes [id number] 40mg Take 1 [facility] e 40 mg EC 1-01 tablet by ity of tablet 00:00: mouth in [place] 00 the Medical morning. Branch rosuvastati 2021-09 Yes [id number] 10mg Take 1 [facility] n 10 mg 1-01 tablet by ity of tablet 00:00: mouth at [place] 00 bedtime. Medical Branch SUMAtriptan 2021-09 Yes [id number] 50mg Take 1 [facility] 50 mg 1-01 tablet by ity of tablet 00:00: mouth as [place] 00 needed for Medical Migraine. Branch diltiazem 2021-09 Yes [id number] 120mg Take 1 [facility] 120 mg 24 1-01 capsule by [facility] of hr capsule 00:00: mouth in [place] 00 the Medical morning Branch and 1 capsule in the evening. fluticasone 2021-09 Yes [id number] 2{puff} Inhale 2 [facility] propionate 1-01 Puffs ity of (FLOVENT 00:00: every 12 [place] HFA) 110 00 (twelve) Medical mcg/actuati hours. Branch on inhaler Rinse mouth after each use. rosuvastati 2021-09 Yes [id number] 10mg Take 1 [facility] n 10 mg 1-01 tablet by [facility] of tablet 00:00: mouth at [place] [address] bedtime. Medical Branch diltiazem 2021-09 Yes [id number] 120mg Take 1 [facility] 120 mg 24 1-01 capsule by [facility] of hr capsule 00:00: mouth in [place] 00 the Medical morning Branch and 1 capsule in the evening. fluticasone 2021-09 Yes [id number] 2{puff} Inhale 2 [facility] propionate 1-01 Puffs ity of (FLOVENT 00:00: every 12 [place] HFA) 110 00 (twelve) Medical mcg/actuati hours. Branch on inhaler Rinse mouth after each use. rosuvastati 2021-09 Yes [id number] 10mg Take 1 [facility] n 10 mg 1-01 tablet by ity of tablet 00:00: mouth at [place] 00 bedtime. Medical Branch diltiazem 2021-09 Yes [id number] 120mg Take 1 [facility] 120 mg 24 1-01 capsule by it[facility] of hr capsule 00:00: mouth in [place] 00 the Medical morning Branch and 1 capsule in the evening. fluticasone 2021-09 Yes [id number] 2{puff} Inhale 2 [facility] propionate 1-01 Puffs ity of (FLOVENT 00:00: every 12 [place] HFA) 110 00 (twelve) Medical mcg/actuati hours. Branch on inhaler Rinse mouth after each use. rosuvastati 2021-09 Yes [id number] 10mg Take 1 [facility] n 10 mg 1-01 tablet by ity of tablet 00:00: mouth at [place] 00 bedtime. Medical Branch diltiazem 2021-09 Yes [id number] 120mg Take 1 [facility] n[facility] 120 mg 24 1-01 capsule by ity of hr capsule 00:00: mouth in [place] 00 the Medical morning Branch and 1 capsule in the evening. fluticasone 2021-09 Yes [id number] 2{puff} Inhale 2 [facility] propionate 1-01 Puffs ity of (FLOVENT 00:00: every 12 [place] [facility]) 110 00 (twelve) Medical mcg/actuati hours. Branch on inhaler Rinse mouth after each use. rosuvastati 2021-09 Yes [id number] 10mg Take 1 [facility] n 10 mg 1-01 tablet by ity of tablet 00:00: mouth at [place] 00 bedtime. Medical Branch diltiazem 2021-09 Yes [id number] 120mg Take 1 [facility] n[facility] 120 mg 24 1-01 capsule by ity of hr capsule 00:00: mouth in [place] 00 the Medical morning Branch and 1 capsule in the evening. fluticasone 2021-09 Yes [id number] 2{puff} Inhale 2 [facility] propionate 1-01 Puffs ity of (FLOVENT 00:00: every 12 [place] HFA) 110 00 (twelve) Medical mcg/actuati hours. Branch on inhaler Rinse mouth after each use. rosuvastati 2021-09 Yes [id number] 10mg Take 1 [facility] n 10 mg 1-01 tablet by ity of tablet 00:00: mouth at [place] 00 bedtime. Medical Branch diltiazem 2021-09 Yes [id number] 120mg Take 1 [facility] n[facility] 120 mg 24 1-01 capsule by ity of hr capsule 00:00: mouth in [place] 00 the Medical morning Branch and 1 capsule in the evening. fluticasone 2021-09 Yes [id number] 2{puff} Inhale 2 [facility] propionate 1-01 Puffs ity of (FLOVENT 00:00: every 12 [place] HFA) 110 00 (twelve) Medical mcg/actuati hours. Branch on inhaler Rinse mouth after each use. rosuvastati 2021-09 Yes [id number] 10mg Take 1 [facility] n 10 mg 1-01 tablet by ity of tablet 00:00: mouth at [place] 00 bedtime. Medical Branch diltiazem 2021-09 Yes [id number] 120mg Take 1 [facility] n[facility] 120 mg 24 1-01 capsule by it[facility] of hr capsule 00:00: mouth in [place] 00 the Medical morning Branch and 1 capsule in the evening. fluticasone 2021-09 Yes [id number] 2{puff} Inhale 2 [facility] propionate 1-01 Puffs ity of (FLOVENT 00:00: every 12 [place] HFA) 110 00 (twelve) Medical mcg/actuati hours. Branch on inhaler Rinse mouth after each use. rosuvastati 2021-09 Yes [id number] 10mg Take 1 [facility] n 10 mg 1-01 tablet by ity of tablet 00:00: mouth at [place] 00 bedtime. Medical Branch diltiazem 2021-09 Yes [id number] 120mg Take 1 [facility] nivers 120 mg 24 1-01 capsule by ity of hr capsule 00:00: mouth in [place] 00 the Medical morning Branch and 1 capsule in the evening. fluticasone 2021-09 Yes [id number] 2{puff} Inhale 2 [facility] propionate 1-01 Puffs ity of (FLOVENT 00:00: every 12 [place] HFA) 110 00 (twelve) Medical mcg/actuati hours. Branch on inhaler Rinse mouth after each use. rosuvastati 2021-09 Yes [id number] 10mg Take 1 [facility] n 10 mg 1-01 tablet by ity of tablet 00:00: mouth at [place] 00 bedtime. Medical Branch diltiazem 2021-09 Yes [id number] 120mg Take 1 [facility] nivers 120 mg 24 1-01 capsule by ity of hr capsule 00:00: mouth in [place] 00 the Medical morning Branch and 1 capsule in the evening. fluticasone 2021-09 Yes [id number] 2{puff} Inhale 2 [facility] propionate 1-01 Puffs ity of (FLOVENT 00:00: every 12 [place] HFA) 110 00 (twelve) Medical mcg/actuati hours. Branch on inhaler Rinse mouth after each use. rosuvastati 2021-09 Yes [id number] 10mg Take 1 [facility] n 10 mg 1-01 tablet by ity of tablet 00:00: mouth at [place] 00 bedtime. Medical Branch diltiazem 2021-09 Yes [id number] 120mg Take 1 [facility] nivers 120 mg 24 1-01 capsule by ity of hr capsule 00:00: mouth in [place] 00 the Medical morning Branch and 1 capsule in the evening. fluticasone 2021-09 Yes [id number] 2{puff} Inhale 2 [facility] propionate 1-01 Puffs ity of (FLOVENT 00:00: every 12 [place] HFA) 110 00 (twelve) Medical mcg/actuati hours. Branch on inhaler Rinse mouth after each use. rosuvastati 2021-09 Yes [id number] 10mg Take 1 [facility] n 10 mg 1-01 tablet by ity of tablet 00:00: mouth at [place] 00 bedtime. Medical Branch diltiazem 2021-09 Yes [id number] 120mg Take 1 [facility] nivers 120 mg 24 1-01 capsule by ity of hr capsule 00:00: mouth in [place] 00 the Medical morning Branch and 1 capsule in the evening. fluticasone 2021-09 Yes [id number] 2{puff} Inhale 2 [facility] propionate 1-01 Puffs ity of (FLOVENT 00:00: every 12 [place] HFA) 110 00 (twelve) Medical mcg/actuati hours. Branch on inhaler Rinse mouth after each use. rosuvastati 2021-09 Yes [id number] 10mg Take 1 [facility] n 10 mg 1-01 tablet by ity of tablet 00:00: mouth at [place] 00 bedtime. Medical Branch diltiazem 2021-09 Yes [id number] 120mg Take 1 [facility] nivers 120 mg 24 1-01 capsule by ity of hr capsule 00:00: mouth in [place] 00 the Medical morning Branch and 1 capsule in the evening. fluticasone 2021-09 Yes [id number] 2{puff} Inhale 2 [facility] propionate 1-01 Puffs ity of (FLOVENT 00:00: every 12 [place] HFA) 110 00 (twelve) Medical mcg/actuati hours. Branch on inhaler Rinse mouth after each use. rosuvastati 2021-09 Yes [id number] 10mg Take 1 [facility] n 10 mg 1-01 tablet by ity of tablet 00:00: mouth at [place] 00 bedtime. Medical Branch diltiazem 2021-09 Yes [id number] 120mg Take 1 [facility] 120 mg 24 1-01 capsule by ity of hr capsule 00:00: mouth in [place] 00 the Medical morning Branch and 1 capsule in the evening. fluticasone 2021-09 Yes [id number] 2{puff} Inhale 2 [facility] propionate 1-01 Puffs ity of (FLOVENT 00:00: every 12 [place] HFA) 110 00 (twelve) Medical mcg/actuati hours. Branch on inhaler Rinse mouth after each use. rosuvastati 2021-09 Yes [id number] 10mg Take 1 [facility] n 10 mg 1-01 tablet by ity of tablet 00:00: mouth at [place] 00 bedtime. Medical Branch diltiazem 2021-09 Yes [id number] 120mg Take 1 [facility] nivers 120 mg 24 1-01 capsule by ity of hr capsule 00:00: mouth in [place] 00 the Medical morning Branch and 1 capsule in the evening. fluticasone 2021-09 Yes [id number] 2{puff} Inhale 2 [facility] propionate 1-01 Puffs ity of (FLOVENT 00:00: every 12 [place] HFA) 110 00 (twelve) Medical mcg/actuati hours. Branch on inhaler Rinse mouth after each use. rosuvastati 2021-09 Yes [id number] 10mg Take 1 [facility] n 10 mg 1-01 tablet by ity of tablet 00:00: mouth at [place] 00 bedtime. Medical Branch diltiazem 2021-09 Yes [id number] 120mg Take 1 [facility] nivers 120 mg 24 1-01 capsule by ity of hr capsule 00:00: mouth in [place] 00 the Medical morning Branch and 1 capsule in the evening. fluticasone 2021-09 Yes [id number] 2{puff} Inhale 2 [facility] propionate 1-01 Puffs ity of (FLOVENT 00:00: every 12 [place] HFA) 110 00 (twelve) Medical mcg/actuati hours. Branch on inhaler Rinse mouth after each use. rosuvastati 2021-09 Yes [id number] 10mg Take 1 [facility] n 10 mg 1-01 tablet by ity of tablet 00:00: mouth at [place] 00 bedtime. Medical Branch diltiazem 2021-09 Yes [id number] 120mg Take 1 [facility] nivers 120 mg 24 1-01 capsule by ity of hr capsule 00:00: mouth in [place] 00 the Medical morning Branch and 1 capsule in the evening. fluticasone 2021-09 Yes [id number] 2{puff} Inhale 2 [facility] propionate 1-01 Puffs ity of (FLOVENT 00:00: every 12 [place] HFA) 110 00 (twelve) Medical mcg/actuati hours. Branch on inhaler Rinse mouth after each use. rosuvastati 2021-09 Yes [id number] 10mg Take 1 [facility] n 10 mg 1-01 tablet by ity of tablet 00:00: mouth at [place] 00 bedtime. Medical Branch diltiazem 2021-09 Yes [id number] 120mg Take 1 [facility] nivers 120 mg 24 1-01 capsule by ity of hr capsule 00:00: mouth in [place] 00 the Medical morning Branch and 1 capsule in the evening. fluticasone 2021-09 Yes [id number] 2{puff} Inhale 2 [facility] propionate 1-01 Puffs ity of (FLOVENT 00:00: every 12 [place] HFA) 110 00 (twelve) Medical mcg/actuati hours. Branch on inhaler Rinse mouth after each use. rosuvastati 2021-09 Yes [id number] 10mg Take 1 [facility] n 10 mg 1-01 tablet by ity of tablet 00:00: mouth at [place] 00 bedtime. Medical Branch diltiazem 2021-09 Yes [id number] 120mg Take 1 [facility] nivers 120 mg 24 1-01 capsule by ity of hr capsule 00:00: mouth in [place] 00 the Medical morning Branch and 1 capsule in the evening. fluticasone 2021-09 Yes [id number] 2{puff} Inhale 2 [facility] propionate 1-01 Puffs ity of (FLOVENT 00:00: every 12 [place] HFA) 110 00 (twelve) Medical mcg/actuati hours. Branch on inhaler Rinse mouth after each use. rosuvastati 2021-09 Yes [id number] 10mg Take 1 [facility] n 10 mg 1-01 tablet by ity of tablet 00:00: mouth at [place] 00 bedtime. Medical Branch diltiazem 2021-09 Yes [id number] 120mg Take 1 [facility] nivers 120 mg 24 1-01 capsule by ity of hr capsule 00:00: mouth in [place] 00 the Medical morning Branch and 1 capsule in the evening. fluticasone 2021-09 Yes [id number] 2{puff} Inhale 2 [facility] propionate 1-01 Puffs ity of (FLOVENT 00:00: every 12 [place] HFA) 110 00 (twelve) Medical mcg/actuati hours. Branch on inhaler Rinse mouth after each use. rosuvastati 2021-09 Yes [id number] 10mg Take 1 [facility] n 10 mg 1-01 tablet by ity of tablet 00:00: mouth at [place] 00 bedtime. Medical Branch diltiazem 2021-09 Yes [id number] 120mg Take 1 [facility] nivers 120 mg 24 1-01 capsule by ity of hr capsule 00:00: mouth in [place] 00 the Medical morning Branch and 1 capsule in the evening. fluticasone 2021-09 Yes [id number] 2{puff} Inhale 2 [facility] propionate 1-01 Puffs ity of (FLOVENT 00:00: every 12 [place] HFA) 110 00 (twelve) Medical mcg/actuati hours. Branch on inhaler Rinse mouth after each use. rosuvastati 2021-09 Yes [id number] 10mg Take 1 [facility] n 10 mg 1-01 tablet by ity of tablet 00:00: mouth at [place] 00 bedtime. Medical Branch diltiazem 2021-09 Yes [id number] 120mg Take 1 [facility] nivers 120 mg 24 1-01 capsule by [facility] of hr capsule 00:00: mouth in [place] 00 the Medical morning Branch and 1 capsule in the evening. fluticasone 2021-09 Yes [id number] 2{puff} Inhale 2 [facility] propionate 1-01 Puffs ity of (FLOVENT 00:00: every 12 [place] HFA) 110 00 (twelve) Medical mcg/actuati hours. Branch on inhaler Rinse mouth after each use. rosuvastati 2021-09 Yes [id number] 10mg Take 1 [facility] n 10 mg 1-01 tablet by [facility]y of tablet 00:00: mouth at [place] 00 bedtime. Medical Branch diltiazem 2021-09 Yes [id number] 120mg Take 1 [facility] nivers 120 mg 24 1-01 capsule by [facility] of hr capsule 00:00: mouth in [place] 00 the Medical morning Branch and 1 capsule in the evening. fluticasone 2021-09 Yes [id number] 2{puff} Inhale 2 [facility] propionate 1-01 Puffs ity of (FLOVENT 00:00: every 12 [place] HFA) 110 00 (twelve) Medical mcg/actuati hours. Branch on inhaler Rinse mouth after each use. rosuvastati 2021-09 Yes [id number] 10mg Take 1 [facility] n 10 mg -01 tablet by ity of tablet 00:00: mouth at [place] [address] bedtime. Medical Branch diltiazem 2021-09 Yes [id number] 120mg Take 1 [facility] nivers 120 mg 24 1- capsule by [facility] of hr capsule 00:00: mouth in [place] 00 the Medical morning Branch and 1 capsule in the evening. fluticasone 2021-09 Yes [id number] 2{puff} Inhale 2 [facility] propionate 1-01 Puffs ity of (FLOVENT 00:00: every 12 [place] HFA) 110 00 (twelve) Medical mcg/actuati hours. Branch on inhaler Rinse mouth after each use. rosuvastati 2021-09 Yes [id number] 10mg Take 1 [facility] n 10 mg -01 tablet by ity of tablet 00:00: mouth at [place] [address] bedtime. Medical Branch metformin 2021-09- No [id number] 500mg Take 1 [facility] ER 500 mg 09-26 tablet by ity of 24 hr 00:00: 00:00 mouth [place] tablet 00 :00 daily with Medical breakfast. Branch pantoprazol 2021-09- No [id number] 40mg Take 1 [facility] e 40 mg EC 09-26 tablet by ity of tablet 00:00: 00:00 mouth in [place] 00 :00 the Medical morning. Branch SUMAtriptan 2021-09- No [id number] 50mg Take 1 [facility] 50 mg 09-26 tablet by ity of tablet 00:00: 00:00 mouth as [place] 00 :00 needed for Medical Migraine. Branch metformin 2021-09- No [id number] 500mg Take 1 [facility] ER 500 mg 09-26 tablet by ity of 24 hr 00:00: 00:00 mouth [place] tablet 00 :00 daily with Medical breakfast. Branch pantoprazol 2021-09- No [id number] 40mg Take 1 [facility] e 40 mg EC 09-26 tablet by ity of tablet 00:00: 00:00 mouth in [place] 00 :00 the Medical morning. Branch SUMAtriptan 2021-09- No [id number] 50mg Take 1 [facility] 50 mg 09-26 tablet by ity of tablet 00:00: 00:00 mouth as [place] 00 :00 needed for Medical Migraine. Branch metformin 2021-09- No [id number] 500mg Take 1 [facility] ER 500 mg 09-26 tablet by ity of 24 hr 00:00: 00:00 mouth [place] tablet 00 :00 daily with Medical breakfast. [place] pantoprazol 2021-09- No [id number] 40mg Take 1 [facility] e 40 mg EC 09-26 tablet by ity of tablet 00:00: 00:00 mouth in [place] 00 :00 the Medical morning. [place] SUMAtriptan 2021-09- No [id number] 50mg Take 1 [facility] 50 mg 09-26 tablet by ity of tablet 00:00: 00:00 mouth as [place] 00 :00 needed for Medical Migraine. [place] pregabalin 2021-09- No [id number] 150mg Take 1 [facility] 150 mg 09-2614 capsule by ity of capsule 00:00: 00:00 mouth in [place] 00 :00 the Medical morning Branch and 1 capsule at noon and 1 capsule in the evening. levothyroxi 2021-09- No [id number] 50ug Take 1 [facility] ne 50 mcg 09-26 tablet by ity of tablet 00:00: 00:00 mouth [place] 00 :00 every Medical morning. Branch levothyroxi 2021-09- No [id number] 50ug Take 1 [facility] ne 50 mcg 09-26 tablet by ity of tablet 00:00: 00:00 mouth [place] 00 :00 every Medical morning. [place] busPIRone 2021-09 Yes [id number] 20mg Take 2 [facility] [place] 10 mg 0-13 tablets by [facility]y of tablet 00:00: mouth in [place] 00 the Medical morning Branch and 2 tablets in the evening. diltiazem 2021-09 Yes [id number] 120mg Take 1 [facility] 120 mg 24 0-13 capsule by [facility] of hr capsule 00:00: mouth in [place] 00 the Medical morning Branch and 1 capsule in the evening. levothyroxi 2021-09 Yes [id number] 50ug Take 1 [facility] ne 50 mcg 0-13 tablet by ity o f tablet 00:00: mouth [place] 00 every Medical morning. Branch losartan 50 2021-09 Yes [id number] 50mg Take 1 [facility] mg tablet 0-13 tablet by ity o f 00:00: mouth in [place] 00 the Medical morning Branch and 1 tablet in the evening. metformin 2021-09 Yes [id number] 500mg Take 1 [facility] n[facility] ER 500 mg 0-13 tablet by ity o f 24 hr 00:00: mouth [place] tablet 00 daily with Medical breakfast. Branch STOP REGULAR METFORMIN. mirabegron 2021-09 Yes [id number] 50mg Take 1 [facility] (MYRBETRIQ) 0-13 tablet by ity of 50 mg 00:00: mouth in [place] tablet 00 the Medical morning. Branch semaglutide 2021-09 Yes [id number] Inject [facility] (OZEMPIC) 0-13 0.25 mg ity of 0.25 mg or 00:00: under the [place] 0.5 mg(2 00 skin Medical mg/1.5 mL) weekly. Branch PnIj pantoprazol 2021-09 Yes [id number] 40mg Take 1 [facility] e 40 mg EC 0-13 tablet by ity of tablet 00:00: mouth in [place] 00 the Medical morning. Branch pregabalin 2021-09 Yes [id number] 150mg Take 1 [facility] 150 mg 0-13 capsule by ity of capsule 00:00: mouth in [place] 00 the Medical morning Branch and 1 capsule at noon and 1 capsule in the evening. rosuvastati 2021-09 Yes [id number] 10mg Take 1 [facility] n 10 mg 0-13 tablet by ity of tablet 00:00: mouth at [place] 00 bedtime. Medical Branch SUMAtriptan 2021-09 Yes [id number] 50mg Take 1 [facility] 50 mg 0-13 tablet by ity of tablet 00:00: mouth as [place] 00 needed for Medical Migraine. Branch topiramate 2021-09 Yes [id number] 75mg Take 3 [facility] 25 mg 0-13 tablets by ity of tablet 00:00: mouth in [place] 00 the Medical morning Branch and 3 tablets in the evening. busPIRone 2021-09 Yes [id number] 20mg Take 2 [facility] [place] 10 mg 0-13 tablets by ity of tablet 00:00: mouth in [place] 00 the Medical morning Branch and 2 tablets in the evening. losartan 50 2021-09 Yes [id number] 50mg Take 1 [facility] mg tablet 0-13 tablet by ity o f 00:00: mouth in [place] 00 the Medical morning Branch and 1 tablet in the evening. mirabegron 2021-09 Yes [id number] 50mg Take 1 [facility] (MYRBETRIQ) 0-13 tablet by ity of 50 mg 00:00: mouth in [place] tablet 00 the Medical morning. Branch semaglutide 2021-09 Yes [id number] Inject [facility] (OZEMPIC) 0-13 0.25 mg ity of 0.25 mg or 00:00: under the [place] 0.5 mg(2 00 skin Medical mg/1.5 mL) weekly. Branch PnIj topiramate 2021-09 Yes [id number] 75mg Take 3 [facility] 25 mg 0-13 tablets by ity of tablet 00:00: mouth in [place] the Medical morning Branch and 3 tablets in the evening. busPIRone 2021-09 Yes [id number] 20mg Take 2 [facility] [place] 10 mg 0-13 tablets by ity of tablet 00:00: mouth in [place] the Medical morning Branch and 2 tablets in the evening. losartan 50 2021-09 Yes [id number] 50mg Take 1 [facility] mg tablet 0-13 tablet by ity o f 00:00: mouth in [place] 00 the Medical morning Branch and 1 tablet in the evening. mirabegron 2021-09 Yes [id number] 50mg Take 1 [facility] (MYRBETRIQ) 0-13 tablet by ity of 50 mg 00:00: mouth in [place] tablet 00 the Medical morning. Branch semaglutide 2021-09 Yes [id number] Inject [facility] (OZEMPIC) 0-13 0.25 mg ity of 0.25 mg or 00:00: under the [place] 0.5 mg(2 00 skin Medical mg/1.5 mL) weekly. Branch PnIj topiramate 2021-09 Yes [id number] 75mg Take 3 [facility] 25 mg 0-13 tablets by ity of tablet 00:00: mouth in [place] 00 the Medical morning Branch and 3 tablets in the evening. busPIRone 2021-09 Yes [id number] 20mg Take 2 [facility] [place] 10 mg 0-13 tablets by ity of tablet 00:00: mouth in [place] 00 the Medical morning Branch and 2 tablets in the evening. losartan 50 2021-09 Yes [id number] 50mg Take 1 [facility] mg tablet 0-13 tablet by ity o f 00:00: mouth in [place] 00 the Medical morning Branch and 1 tablet in the evening. mirabegron 2021-09 Yes [id number] 50mg Take 1 [facility] (MYRBETRIQ) 0-13 tablet by ity of 50 mg 00:00: mouth in [place] tablet 00 the Medical morning. Branch semaglutide 2021-09 Yes [id number] Inject [facility] (OZEMPIC) 0-13 0.25 mg ity of 0.25 mg or 00:00: under the [place] 0.5 mg(2 00 skin Medical mg/1.5 mL) weekly. Branch PnIj topiramate 2021-09 Yes [id number] 75mg Take 3 [facility] 25 mg 0-13 tablets by ity of tablet 00:00: mouth in [place] 00 the Medical morning Branch and 3 tablets in the evening. busPIRone 2021-09 Yes [id number] 20mg Take 2 [facility] [place] 10 mg 0-13 tablets by ity of tablet 00:00: mouth in [place] 00 the Medical morning Branch and 2 tablets in the evening. losartan 50 2021-09 Yes [id number] 50mg Take 1 [facility] mg tablet 0-13 tablet by ity o f 00:00: mouth in [place] 00 the Medical morning Branch and 1 tablet in the evening. mirabegron 2021-09 Yes [id number] 50mg Take 1 [facility] (MYRBETRIQ) 0-13 tablet by ity of 50 mg 00:00: mouth in [place] tablet 00 the Medical morning. Branch semaglutide 2021-09 Yes [id number] Inject [facility] (OZEMPIC) 0-13 0.25 mg ity of 0.25 mg or 00:00: under the [place] 0.5 mg(2 00 skin Medical mg/1.5 mL) weekly. Branch PnIj topiramate 2021-09 Yes [id number] 75mg Take 3 [facility] 25 mg 0-13 tablets by ity of tablet 00:00: mouth in [place] 00 the Medical morning Branch and 3 tablets in the evening. busPIRone 2021-09 Yes [id number] 20mg Take 2 [facility] [place] 10 mg 0-13 tablets by ity of tablet 00:00: mouth in [place] 00 the Medical morning Branch and 2 tablets in the evening. losartan 50 2021-09 Yes [id number] 50mg Take 1 [facility] mg tablet 0-13 tablet by ity o f 00:00: mouth in [place] 00 the Medical morning Branch and 1 tablet in the evening. mirabegron 2021-09 Yes [id number] 50mg Take 1 [facility] (MYRBETRIQ) 0-13 tablet by ity of 50 mg 00:00: mouth in [place] tablet 00 the Medical morning. Branch semaglutide 2021-09 Yes [id number] Inject [facility] (OZEMPIC) 0-13 0.25 mg ity of 0.25 mg or 00:00: under the [place] 0.5 mg(2 00 skin Medical mg/1.5 mL) weekly. Branch PnIj topiramate 2021-09 Yes [id number] 75mg Take 3 [facility] 25 mg 0-13 tablets by ity of tablet 00:00: mouth in [place] 00 the Medical morning Branch and 3 tablets in the evening. busPIRone 2021-09 Yes [id number] 20mg Take 2 [facility] [place] 10 mg 0-13 tablets by ity of tablet 00:00: mouth in [place] 00 the Medical morning Branch and 2 tablets in the evening. losartan 50 2021-09 Yes [id number] 50mg Take 1 [facility] mg tablet 0-13 tablet by ity o f 00:00: mouth in [place] 00 the Medical morning Branch and 1 tablet in the evening. mirabegron 2021-09 Yes [id number] 50mg Take 1 [facility] (MYRBETRIQ) 0-13 tablet by ity of 50 mg 00:00: mouth in [place] tablet 00 the Medical morning. Branch semaglutide 2021-09 Yes [id number] Inject [facility] (OZEMPIC) 0-13 0.25 mg ity of 0.25 mg or 00:00: under the [place] 0.5 mg(2 00 skin Medical mg/1.5 mL) weekly. Branch PnIj topiramate 2021-09 Yes [id number] 75mg Take 3 [facility] 25 mg 0-13 tablets by ity of tablet 00:00: mouth in [place] 00 the Medical morning Branch and 3 tablets in the evening. busPIRone 2021-09 Yes [id number] 20mg Take 2 [facility] [place] 10 mg 0-13 tablets by ity of tablet 00:00: mouth in [place] 00 the Medical morning Branch and 2 tablets in the evening. losartan 50 2021-09 Yes [id number] 50mg Take 1 [facility] mg tablet 0-13 tablet by ity o f 00:00: mouth in [place] 00 the Medical morning Branch and 1 tablet in the evening. mirabegron 2021-09 Yes [id number] 50mg Take 1 [facility] (MYRBETRIQ) 0-13 tablet by ity of 50 mg 00:00: mouth in [place] tablet 00 the Medical morning. Branch semaglutide 2021-09 Yes [id number] Inject [facility] (OZEMPIC) 0-13 0.25 mg ity of 0.25 mg or 00:00: under the [place] 0.5 mg(2 00 skin Medical mg/1.5 mL) weekly. Branch PnIj topiramate 2021-09 Yes [id number] 75mg Take 3 [facility] 25 mg 0-13 tablets by ity of tablet 00:00: mouth in [place] 00 the Medical morning Branch and 3 tablets in the evening. busPIRone 2021-09 Yes [id number] 20mg Take 2 [facility] [place] 10 mg 0-13 tablets by ity of tablet 00:00: mouth in [place] 00 the Medical morning Branch and 2 tablets in the evening. losartan 50 2021-09 Yes [id number] 50mg Take 1 [facility] mg tablet 0-13 tablet by ity o f 00:00: mouth in [place] 00 the Medical morning Branch and 1 tablet in the evening. mirabegron 2021-09 Yes [id number] 50mg Take 1 [facility] (MYRBETRIQ) 0-13 tablet by ity of 50 mg 00:00: mouth in [place] tablet 00 the Medical morning. Branch semaglutide 2021-09 Yes [id number] Inject [facility] (OZEMPIC) 0-13 0.25 mg ity of 0.25 mg or 00:00: under the [place] 0.5 mg(2 00 skin Medical mg/1.5 mL) weekly. Branch PnIj topiramate 2021-09 Yes [id number] 75mg Take 3 [facility] 25 mg 0-13 tablets by ity of tablet 00:00: mouth in [place] 00 the Medical morning Branch and 3 tablets in the evening. busPIRone 2021-09 Yes [id number] 20mg Take 2 [facility] [place] 10 mg 0-13 tablets by ity of tablet 00:00: mouth in [place] 00 the Medical morning Branch and 2 tablets in the evening. losartan 50 2021-09 Yes [id number] 50mg Take 1 [facility] mg tablet 0-13 tablet by ity o f 00:00: mouth in [place] 00 the Medical morning Branch and 1 tablet in the evening. mirabegron 2021-09 Yes [id number] 50mg Take 1 [facility] (MYRBETRIQ) 0-13 tablet by ity of 50 mg 00:00: mouth in [place] tablet 00 the Medical morning. Branch semaglutide 2021-09 Yes [id number] Inject [facility] (OZEMPIC) 0-13 0.25 mg ity of 0.25 mg or 00:00: under the [place] 0.5 mg(2 00 skin Medical mg/1.5 mL) weekly. Branch PnIj topiramate 2021-09 Yes [id number] 75mg Take 3 [facility] 25 mg 0-13 tablets by ity of tablet 00:00: mouth in [place] 00 the Medical morning Branch and 3 tablets in the evening. busPIRone 2021-09 Yes [id number] 20mg Take 2 [facility] [place] 10 mg 0-13 tablets by ity of tablet 00:00: mouth in [place] 00 the Medical morning Branch and 2 tablets in the evening. losartan 50 2021-09 Yes [id number] 50mg Take 1 [facility] mg tablet 0-13 tablet by ity o f 00:00: mouth in [place] 00 the Medical morning Branch and 1 tablet in the evening. mirabegron 2021-09 Yes [id number] 50mg Take 1 [facility] (MYRBETRIQ) 0-13 tablet by ity of 50 mg 00:00: mouth in [place] tablet 00 the Medical morning. Branch semaglutide 2021-09 Yes [id number] Inject [facility] (OZEMPIC) 0-13 0.25 mg ity of 0.25 mg or 00:00: under the [place] 0.5 mg(2 00 skin Medical mg/1.5 mL) weekly. Branch PnIj topiramate 2021-09 Yes [id number] 75mg Take 3 [facility] 25 mg 0-13 tablets by ity of tablet 00:00: mouth in [place] 00 the Medical morning Branch and 3 tablets in the evening. busPIRone 2021-09 Yes [id number] 20mg Take 2 [facility] [place] 10 mg 0-13 tablets by ity of tablet 00:00: mouth in [place] 00 the Medical morning Branch and 2 tablets in the evening. losartan 50 2021-09 Yes [id number] 50mg Take 1 [facility] mg tablet 0-13 tablet by ity o f 00:00: mouth in [place] 00 the Medical morning Branch and 1 tablet in the evening. mirabegron 2021-09 Yes [id number] 50mg Take 1 [facility] (MYRBETRIQ) 0-13 tablet by ity of 50 mg 00:00: mouth in [place] tablet 00 the Medical morning. Branch semaglutide 2021-09 Yes [id number] Inject [facility] (OZEMPIC) 0-13 0.25 mg ity of 0.25 mg or 00:00: under the [place] 0.5 mg(2 00 skin Medical mg/1.5 mL) weekly. Branch PnIj topiramate 2021-09 Yes [id number] 75mg Take 3 [facility] 25 mg 0-13 tablets by ity of tablet 00:00: mouth in [place] 00 the Medical morning Branch and 3 tablets in the evening. busPIRone 2021-09 Yes [id number] 20mg Take 2 [facility] [place] 10 mg 0-13 tablets by ity of tablet 00:00: mouth in [place] 00 the Medical morning Branch and 2 tablets in the evening. losartan 50 2021-09 Yes [id number] 50mg Take 1 [facility] mg tablet 0-13 tablet by ity o f 00:00: mouth in [place] 00 the Medical morning Branch and 1 tablet in the evening. mirabegron 2021-09 Yes [id number] 50mg Take 1 [facility] (MYRBETRIQ) 0-13 tablet by ity of 50 mg 00:00: mouth in [place] tablet 00 the Medical morning. Branch semaglutide 2021-09 Yes [id number] Inject [facility] (OZEMPIC) 0-13 0.25 mg ity of 0.25 mg or 00:00: under the [place] 0.5 mg(2 00 skin Medical mg/1.5 mL) weekly. Branch PnIj topiramate 2021-09 Yes [id number] 75mg Take 3 [facility] 25 mg 0-13 tablets by ity of tablet 00:00: mouth in [place] 00 the Medical morning Branch and 3 tablets in the evening. busPIRone 2021-09 Yes [id number] 20mg Take 2 [facility] [place] 10 mg 0-13 tablets by ity of tablet 00:00: mouth in [place] 00 the Medical morning Branch and 2 tablets in the evening. losartan 50 2021-09 Yes [id number] 50mg Take 1 [facility] mg tablet 0-13 tablet by ity o f 00:00: mouth in [place] 00 the Medical morning Branch and 1 tablet in the evening. mirabegron 2021-09 Yes [id number] 50mg Take 1 [facility] (MYRBETRIQ) 0-13 tablet by ity of 50 mg 00:00: mouth in [place] tablet 00 the Medical morning. Branch semaglutide 2021-09 Yes [id number] Inject [facility] (OZEMPIC) 0-13 0.25 mg ity of 0.25 mg or 00:00: under the [place] 0.5 mg(2 00 skin Medical mg/1.5 mL) weekly. Branch PnIj topiramate 2021-09 Yes [id number] 75mg Take 3 [facility] 25 mg 0-13 tablets by ity of tablet 00:00: mouth in [place] 00 the Medical morning Branch and 3 tablets in the evening. busPIRone 2021-09 Yes [id number] 20mg Take 2 [facility] [place] 10 mg 0-13 tablets by ity of tablet 00:00: mouth in [place] 00 the Medical morning Branch and 2 tablets in the evening. losartan 50 2021-09 Yes [id number] 50mg Take 1 [facility] mg tablet 0-13 tablet by ity o f 00:00: mouth in [place] 00 the Medical morning Branch and 1 tablet in the evening. mirabegron 2021-09 Yes [id number] 50mg Take 1 [facility] (MYRBETRIQ) 0-13 tablet by ity of 50 mg 00:00: mouth in [place] tablet 00 the Medical morning. Branch semaglutide 2021-09 Yes [id number] Inject [facility] (OZEMPIC) 0-13 0.25 mg ity of 0.25 mg or 00:00: under the [place] 0.5 mg(2 00 skin Medical mg/1.5 mL) weekly. Branch PnIj topiramate 2021-09 Yes [id number] 75mg Take 3 [facility] 25 mg 0-13 tablets by ity of tablet 00:00: mouth in [place] 00 the Medical morning Branch and 3 tablets in the evening. busPIRone 2021-09 Yes [id number] 20mg Take 2 [facility] [place] 10 mg 0-13 tablets by ity of tablet 00:00: mouth in [place] 00 the Medical morning Branch and 2 tablets in the evening. losartan 50 2021-09 Yes [id number] 50mg Take 1 [facility] mg tablet 0-13 tablet by ity o f 00:00: mouth in [place] 00 the Medical morning Branch and 1 tablet in the evening. mirabegron 2021-09 Yes [id number] 50mg Take 1 [facility] (MYRBETRIQ) 0-13 tablet by ity of 50 mg 00:00: mouth in [place] tablet 00 the Medical morning. Branch semaglutide 2021-09 Yes [id number] Inject [facility] (OZEMPIC) 0-13 0.25 mg ity of 0.25 mg or 00:00: under the [place] 0.5 mg(2 00 skin Medical mg/1.5 mL) weekly. Branch PnIj topiramate 2021-09 Yes [id number] 75mg Take 3 [facility] 25 mg 0-13 tablets by ity of tablet 00:00: mouth in [place] 00 the Medical morning Branch and 3 tablets in the evening. busPIRone 2021-09 Yes [id number] 20mg Take 2 [facility] [place] 10 mg 0-13 tablets by ity of tablet 00:00: mouth in [place] 00 the Medical morning Branch and 2 tablets in the evening. losartan 50 2021-09 Yes [id number] 50mg Take 1 [facility] mg tablet 0-13 tablet by ity o f 00:00: mouth in [place] 00 the Medical morning Branch and 1 tablet in the evening. mirabegron 2021-09 Yes [id number] 50mg Take 1 [facility] (MYRBETRIQ) 0-13 tablet by ity of 50 mg 00:00: mouth in [place] tablet 00 the Medical morning. Branch semaglutide 2021-09 Yes [id number] Inject [facility] (OZEMPIC) 0-13 0.25 mg ity of 0.25 mg or 00:00: under the [place] 0.5 mg(2 00 skin Medical mg/1.5 mL) weekly. Branch PnIj topiramate 2021-09 Yes [id number] 75mg Take 3 [facility] 25 mg 0-13 tablets by ity of tablet 00:00: mouth in [place] 00 the Medical morning Branch and 3 tablets in the evening. busPIRone 2021-09 Yes [id number] 20mg Take 2 [facility] [place] 10 mg 0-13 tablets by ity of tablet 00:00: mouth in [place] 00 the Medical morning Branch and 2 tablets in the evening. losartan 50 2021-09 Yes [id number] 50mg Take 1 [facility] mg tablet 0-13 tablet by ity o f 00:00: mouth in [place] 00 the Medical morning Branch and 1 tablet in the evening. mirabegron 2021-09 Yes [id number] 50mg Take 1 [facility] (MYRBETRIQ) 0-13 tablet by ity of 50 mg 00:00: mouth in [place] tablet 00 the Medical morning. Branch semaglutide 2021-09 Yes [id number] Inject [facility] (OZEMPIC) 0-13 0.25 mg ity of 0.25 mg or 00:00: under the [place] 0.5 mg(2 00 skin Medical mg/1.5 mL) weekly. Branch PnIj topiramate 2021-09 Yes [id number] 75mg Take 3 [facility] 25 mg 0-13 tablets by ity of tablet 00:00: mouth in [place] 00 the Medical morning Branch and 3 tablets in the evening. busPIRone 2021-09 Yes [id number] 20mg Take 2 [facility] [place] 10 mg 0-13 tablets by ity of tablet 00:00: mouth in [place] 00 the Medical morning Branch and 2 tablets in the evening. losartan 50 2021-09 Yes [id number] 50mg Take 1 [facility] mg tablet 0-13 tablet by ity o f 00:00: mouth in [place] 00 the Medical morning Branch and 1 tablet in the evening. mirabegron 2021-09 Yes [id number] 50mg Take 1 [facility] (MYRBETRIQ) 0-13 tablet by ity of 50 mg 00:00: mouth in [place] tablet 00 the Medical morning. Branch semaglutide 2021-09 Yes [id number] Inject [facility] (OZEMPIC) 0-13 0.25 mg ity of 0.25 mg or 00:00: under the [place] 0.5 mg(2 00 skin Medical mg/1.5 mL) weekly. Branch PnIj topiramate 2021-09 Yes [id number] 75mg Take 3 [facility] 25 mg 0-13 tablets by ity of tablet 00:00: mouth in [place] 00 the Medical morning Branch and 3 tablets in the evening. busPIRone 2021-09 Yes [id number] 20mg Take 2 [facility] [place] 10 mg 0-13 tablets by ity of tablet 00:00: mouth in [place] 00 the Medical morning Branch and 2 tablets in the evening. losartan 50 2021-09 Yes [id number] 50mg Take 1 [facility] mg tablet 0-13 tablet by ity o f 00:00: mouth in [place] 00 the Medical morning Branch and 1 tablet in the evening. mirabegron 2021-09 Yes [id number] 50mg Take 1 [facility] (MYRBETRIQ) 0-13 tablet by ity of 50 mg 00:00: mouth in [place] tablet 00 the Medical morning. Branch semaglutide 2021-09 Yes [id number] Inject [facility] (OZEMPIC) 0-13 0.25 mg ity of 0.25 mg or 00:00: under the [place] 0.5 mg(2 00 skin Medical mg/1.5 mL) weekly. Branch PnIj topiramate 2021-09 Yes [id number] 75mg Take 3 [facility] 25 mg 0-13 tablets by ity of tablet 00:00: mouth in [place] 00 the Medical morning Branch and 3 tablets in the evening. busPIRone 2021-09 Yes [id number] 20mg Take 2 [facility] [place] 10 mg 0-13 tablets by ity of tablet 00:00: mouth in [place] 00 the Medical morning Branch and 2 tablets in the evening. losartan 50 2021-09 Yes [id number] 50mg Take 1 [facility] mg tablet 0-13 tablet by ity o f 00:00: mouth in [place] 00 the Medical morning Branch and 1 tablet in the evening. mirabegron 2021-09 Yes [id number] 50mg Take 1 [facility] (MYRBETRIQ) 0-13 tablet by ity of 50 mg 00:00: mouth in [place] tablet 00 the Medical morning. Branch semaglutide 2021-09 Yes [id number] Inject [facility] (OZEMPIC) 0-13 0.25 mg ity of 0.25 mg or 00:00: under the [place] 0.5 mg(2 00 skin Medical mg/1.5 mL) weekly. Branch PnIj topiramate 2021-09 Yes [id number] 75mg Take 3 [facility] 25 mg 0-13 tablets by ity of tablet 00:00: mouth in [place] 00 the Medical morning Branch and 3 tablets in the evening. busPIRone 2021-09 Yes [id number] 20mg Take 2 [facility] [place] 10 mg 0-13 tablets by ity of tablet 00:00: mouth in [place] 00 the Medical morning Branch and 2 tablets in the evening. losartan 50 2021-09 Yes [id number] 50mg Take 1 [facility] mg tablet 0-13 tablet by ity o f 00:00: mouth in [place] 00 the Medical morning Branch and 1 tablet in the evening. mirabegron 2021-09 Yes [id number] 50mg Take 1 [facility] (MYRBETRIQ) 0-13 tablet by ity of 50 mg 00:00: mouth in [place] tablet 00 the Medical morning. Branch semaglutide 2021-09 Yes [id number] Inject [facility] (OZEMPIC) 0-13 0.25 mg ity of 0.25 mg or 00:00: under the [place] 0.5 mg(2 00 skin Medical mg/1.5 mL) weekly. Branch PnIj topiramate 2021-09 Yes [id number] 75mg Take 3 [facility] 25 mg 0-13 tablets by ity of tablet 00:00: mouth in [place] 00 the Medical morning Branch and 3 tablets in the evening. busPIRone 2021-09 Yes [id number] 20mg Take 2 [facility] [place] 10 mg 0-13 tablets by [facility] of tablet 00:00: mouth in [place] 00 the Medical morning Branch and 2 tablets in the evening. losartan 50 2021-09 Yes [id number] 50mg Take 1 [facility] mg tablet 0-13 tablet by ity o f 00:00: mouth in [place] 00 the Medical morning Branch and 1 tablet in the evening. mirabegron 2021-09 Yes [id number] 50mg Take 1 [facility] (MYRBETRIQ) 0-13 tablet by ity of 50 mg 00:00: mouth in [place] tablet 00 the Medical morning. Branch semaglutide 2021-09 Yes [id number] Inject [facility] (OZEMPIC) 0-13 0.25 mg ity of 0.25 mg or 00:00: under the [place] 0.5 mg(2 00 skin Medical mg/1.5 mL) weekly. Branch PnIj topiramate 2021-09 Yes [id number] 75mg Take 3 [facility] 25 mg 0-13 tablets by it[facility] of tablet 00:00: mouth in [place] 00 the Medical morning Branch and 3 tablets in the evening. losartan 50 2021-09 Yes [id number] 50mg Take 1 [facility] mg tablet 0-13 tablet by ity o f 00:00: mouth in [place] 00 the Medical morning Branch and 1 tablet in the evening. mirabegron 2021-09 Yes [id number] 50mg Take 1 [facility] (MYRBETRIQ) 0-13 tablet by ity of 50 mg 00:00: mouth in [place] tablet 00 the Medical morning. Branch semaglutide 2021-09 Yes [id number] Inject [facility] (OZEMPIC) 0-13 0.25 mg ity of 0.25 mg or 00:00: under the [place] 0.5 mg(2 00 skin Medical mg/1.5 mL) weekly. Branch PnIj topiramate 2021-09 Yes [id number] 75mg Take 3 [facility] 25 mg 0-13 tablets by ity of tablet 00:00: mouth in [place] 00 the Medical morning Branch and 3 tablets in the evening. losartan 50 2021-09 Yes [id number] 50mg Take 1 [facility] mg tablet 0-13 tablet by ity o f 00:00: mouth in [place] 00 the Medical morning Branch and 1 tablet in the evening. mirabegron 2021-09 Yes [id number] 50mg Take 1 [facility] (MYRBETRIQ) 0-13 tablet by ity of 50 mg 00:00: mouth in [place] tablet 00 the Medical morning. Branch semaglutide 2021-09 Yes [id number] Inject [facility] (OZEMPIC) 0-13 0.25 mg ity of 0.25 mg or 00:00: under the [place] 0.5 mg(2 00 skin Medical mg/1.5 mL) weekly. Branch PnIj topiramate 2021-09 Yes [id number] 75mg Take 3 [facility] 25 mg 0-13 tablets by ity of tablet 00:00: mouth in [place] 00 the Medical morning Branch and 3 tablets in the evening. losartan 50 2021-09 Yes [id number] 50mg Take 1 [facility] mg tablet 0-13 tablet by ity o f 00:00: mouth in [place] 00 the Medical morning Branch and 1 tablet in the evening. mirabegron 2021-09 Yes [id number] 50mg Take 1 [facility] (MYRBETRIQ) 0-13 tablet by ity of 50 mg 00:00: mouth in [place] tablet 00 the Medical morning. Branch semaglutide 2021-09 Yes [id number] Inject [facility] (OZEMPIC) 0-13 0.25 mg ity of 0.25 mg or 00:00: under the [place] 0.5 mg(2 00 skin Medical mg/1.5 mL) weekly. Branch PnIj topiramate 2021-09 Yes [id number] 75mg Take 3 [facility] 25 mg 0-13 tablets by ity of tablet 00:00: mouth in [place] 00 the Medical morning Branch and 3 tablets in the evening. losartan 50 2021-09 Yes [id number] 50mg Take 1 [facility] mg tablet 0-13 tablet by ity o f 00:00: mouth in [place] 00 the Medical morning Branch and 1 tablet in the evening. mirabegron 2021-09 Yes [id number] 50mg Take 1 [facility] (MYRBETRIQ) 0-13 tablet by ity of 50 mg 00:00: mouth in [place] tablet 00 the Medical morning. Branch semaglutide 2021-09 Yes [id number] Inject [facility] (OZEMPIC) 0-13 0.25 mg ity of 0.25 mg or 00:00: under the [place] 0.5 mg(2 00 skin Medical mg/1.5 mL) weekly. Branch PnIj topiramate 2021-09 Yes [id number] 75mg Take 3 [facility] 25 mg 0-13 tablets by ity of tablet 00:00: mouth in [place] 00 the Medical morning Branch and 3 tablets in the evening. losartan 50 2021-09 Yes [id number] 50mg Take 1 [facility] mg tablet 0-13 tablet by ity o f 00:00: mouth in [place] 00 the Medical morning Branch and 1 tablet in the evening. mirabegron 2021-09 Yes [id number] 50mg Take 1 [facility] (MYRBETRIQ) 0-13 tablet by ity of 50 mg 00:00: mouth in [place] tablet 00 the Medical morning. Branch semaglutide 2021-09 Yes [id number] Inject [facility] (OZEMPIC) 0-13 0.25 mg ity of 0.25 mg or 00:00: under the [place] 0.5 mg(2 00 skin Medical mg/1.5 mL) weekly. Branch PnIj topiramate 2021-09 Yes [id number] 75mg Take 3 [facility] 25 mg 0-13 tablets by ity of tablet 00:00: mouth in [place] 00 the Medical morning Branch and 3 tablets in the evening. losartan 50 2021-09 Yes [id number] 50mg Take 1 [facility] mg tablet 0-13 tablet by ity o f 00:00: mouth in [place] 00 the Medical morning Branch and 1 tablet in the evening. mirabegron 2021-09 Yes [id number] 50mg Take 1 [facility] (MYRBETRIQ) 0-13 tablet by ity of 50 mg 00:00: mouth in [place] tablet 00 the Medical morning. Branch semaglutide 2021-09 Yes [id number] Inject [facility] (OZEMPIC) 0-13 0.25 mg ity of 0.25 mg or 00:00: under the [place] 0.5 mg(2 00 skin Medical mg/1.5 mL) weekly. Branch PnIj topiramate 2021-09 Yes [id number] 75mg Take 3 [facility] 25 mg 0-13 tablets by ity of tablet 00:00: mouth in [place] 00 the Medical morning Branch and 3 tablets in the evening. losartan 50 2021-09 Yes [id number] 50mg Take 1 [facility] mg tablet 0-13 tablet by ity o f 00:00: mouth in [place] 00 the Medical morning Branch and 1 tablet in the evening. mirabegron 2021-09 Yes [id number] 50mg Take 1 [facility] (MYRBETRIQ) 0-13 tablet by ity of 50 mg 00:00: mouth in [place] tablet 00 the Medical morning. Branch semaglutide 2021-09 Yes [id number] Inject [facility] (OZEMPIC) 0-13 0.25 mg ity of 0.25 mg or 00:00: under the [place] 0.5 mg(2 00 skin Medical mg/1.5 mL) weekly. Branch PnIj topiramate 2021-09 Yes [id number] 75mg Take 3 [facility] 25 mg 0-13 tablets by ity of tablet 00:00: mouth in [place] 00 the Medical morning Branch and 3 tablets in the evening. losartan 50 2021-09 Yes [id number] 50mg Take 1 [facility] mg tablet 0-13 tablet by ity o f 00:00: mouth in [place] 00 the Medical morning Branch and 1 tablet in the evening. mirabegron 2021-09 Yes [id number] 50mg Take 1 [facility] (MYRBETRIQ) 0-13 tablet by ity of 50 mg 00:00: mouth in [place] tablet 00 the Medical morning. Branch semaglutide 2021-09 Yes [id number] Inject [facility] (OZEMPIC) 0-13 0.25 mg ity of 0.25 mg or 00:00: under the [place] 0.5 mg(2 00 skin Medical mg/1.5 mL) weekly. Branch PnIj topiramate 2021-09 Yes [id number] 75mg Take 3 [facility] 25 mg 0-13 tablets by ity of tablet 00:00: mouth in [place] the Medical morning Branch and 3 tablets in the evening. losartan 50 2021-09 Yes [id number] 50mg Take 1 [facility] mg tablet 0-13 tablet by ity o f 00:00: mouth in [place] 00 the Medical morning Branch and 1 tablet in the evening. mirabegron 2021-09 Yes [id number] 50mg Take 1 [facility] (MYRBETRIQ) 0-13 tablet by ity of 50 mg 00:00: mouth in [place] tablet 00 the Medical morning. Branch semaglutide 2021-09 Yes [id number] Inject [facility] (OZEMPIC) 0-13 0.25 mg ity of 0.25 mg or 00:00: under the [place] 0.5 mg(2 00 skin Medical mg/1.5 mL) weekly. Branch PnIj topiramate 2021-09 Yes [id number] 75mg Take 3 [facility] 25 mg 0-13 tablets by ity of tablet 00:00: mouth in [place] 00 the Medical morning Branch and 3 tablets in the evening. losartan 50 2021-09 Yes [id number] 50mg Take 1 [facility] mg tablet 0-13 tablet by ity o f 00:00: mouth in [place] 00 the Medical morning Branch and 1 tablet in the evening. mirabegron 2021-09 Yes [id number] 50mg Take 1 [facility] (MYRBETRIQ) 0-13 tablet by ity of 50 mg 00:00: mouth in [place] tablet 00 the Medical morning. Branch semaglutide 2021-09 Yes [id number] Inject [facility] (OZEMPIC) 0-13 0.25 mg ity of 0.25 mg or 00:00: under the [place] 0.5 mg(2 00 skin Medical mg/1.5 mL) weekly. Branch PnIj topiramate 2021-09 Yes [id number] 75mg Take 3 [facility] 25 mg 0-13 tablets by ity of tablet 00:00: mouth in [place] the Medical morning Branch and 3 tablets in the evening. losartan 50 2021-09 Yes [id number] 50mg Take 1 [facility] mg tablet 0-13 tablet by ity o f 00:00: mouth in [place] the Medical morning Branch and 1 tablet in the evening. mirabegron 2021-09 Yes [id number] 50mg Take 1 [facility] (MYRBETRIQ) 0-13 tablet by ity of 50 mg 00:00: mouth in [place] tablet 00 the Medical morning. Branch semaglutide 2021-09 Yes [id number] Inject [facility] (OZEMPIC) 0-13 0.25 mg ity of 0.25 mg or 00:00: under the [place] 0.5 mg(2 00 skin Medical mg/1.5 mL) weekly. Branch PnIj topiramate 2021-09 Yes [id number] 75mg Take 3 [facility] 25 mg 0-13 tablets by ity of tablet 00:00: mouth in [place] the Medical morning Branch and 3 tablets in the evening. losartan 50 2021-09 Yes [id number] 50mg Take 1 [facility] mg tablet 0-13 tablet by ity o f 00:00: mouth in [place] 00 the Medical morning Branch and 1 tablet in the evening. mirabegron 2021-09 Yes [id number] 50mg Take 1 [facility] (MYRBETRIQ) 0-13 tablet by ity of 50 mg 00:00: mouth in [place] tablet 00 the Medical morning. Branch semaglutide 2021-09 Yes [id number] Inject [facility] (OZEMPIC) 0-13 0.25 mg ity of 0.25 mg or 00:00: under the [place] 0.5 mg(2 00 skin Medical mg/1.5 mL) weekly. Branch PnIj topiramate 2021-09 Yes [id number] 75mg Take 3 [facility] 25 mg 0-13 tablets by ity of tablet 00:00: mouth in [place] 00 the Medical morning Branch and 3 tablets in the evening. losartan 50 2021-09 Yes [id number] 50mg Take 1 [facility] mg tablet 0-13 tablet by ity o f 00:00: mouth in [place] 00 the Medical morning Branch and 1 tablet in the evening. mirabegron 2021-09 Yes [id number] 50mg Take 1 [facility] (MYRBETRIQ) 0-13 tablet by ity of 50 mg 00:00: mouth in [place] tablet 00 the Medical morning. Branch semaglutide 2021-09 Yes [id number] Inject [facility] (OZEMPIC) 0-13 0.25 mg ity of 0.25 mg or 00:00: under the [place] 0.5 mg(2 00 skin Medical mg/1.5 mL) weekly. Branch PnIj topiramate 2021-09 Yes [id number] 75mg Take 3 [facility] 25 mg 0-13 tablets by ity of tablet 00:00: mouth in [place] 00 the Medical morning Branch and 3 tablets in the evening. losartan 50 2021-09 Yes [id number] 50mg Take 1 [facility] mg tablet 0-13 tablet by ity o f 00:00: mouth in [place] 00 the Medical morning Branch and 1 tablet in the evening. mirabegron 2021-09 Yes [id number] 50mg Take 1 [facility] (MYRBETRIQ) 0-13 tablet by ity of 50 mg 00:00: mouth in [place] tablet 00 the Medical morning. Branch semaglutide 2021-09 Yes [id number] Inject [facility] (OZEMPIC) 0-13 0.25 mg ity of 0.25 mg or 00:00: under the [place] 0.5 mg(2 00 skin Medical mg/1.5 mL) weekly. Branch PnIj topiramate 2021-09 Yes [id number] 75mg Take 3 [facility] 25 mg 0-13 tablets by ity of tablet 00:00: mouth in [place] 00 the Medical morning Branch and 3 tablets in the evening. losartan 50 2021-09 Yes [id number] 50mg Take 1 [facility] mg tablet 0-13 tablet by ity o f 00:00: mouth in [place] 00 the Medical morning Branch and 1 tablet in the evening. mirabegron 2021-09 Yes [id number] 50mg Take 1 [facility] (MYRBETRIQ) 0-13 tablet by ity of 50 mg 00:00: mouth in [place] tablet 00 the Medical morning. Branch semaglutide 2021-09 Yes [id number] Inject [facility] (OZEMPIC) 0-13 0.25 mg ity of 0.25 mg or 00:00: under the [place] 0.5 mg(2 00 skin Medical mg/1.5 mL) weekly. Branch PnIj topiramate 2021-09 Yes [id number] 75mg Take 3 [facility] 25 mg 0-13 tablets by ity of tablet 00:00: mouth in [place] 00 the Medical morning Branch and 3 tablets in the evening. losartan 50 2021-09 Yes [id number] 50mg Take 1 [facility] mg tablet 0-13 tablet by ity o f 00:00: mouth in [place] 00 the Medical morning Branch and 1 tablet in the evening. mirabegron 2021-09 Yes [id number] 50mg Take 1 [facility] (MYRBETRIQ) 0-13 tablet by ity of 50 mg 00:00: mouth in [place] tablet 00 the Medical morning. Branch semaglutide 2021-09 Yes [id number] Inject [facility] (OZEMPIC) 0-13 0.25 mg ity of 0.25 mg or 00:00: under the [place] 0.5 mg(2 00 skin Medical mg/1.5 mL) weekly. Branch PnIj topiramate 2021-09 Yes [id number] 75mg Take 3 [facility] 25 mg 0-13 tablets by ity of tablet 00:00: mouth in [place] 00 the Medical morning Branch and 3 tablets in the evening. losartan 50 2021-09 Yes [id number] 50mg Take 1 [facility] mg tablet 0-13 tablet by ity o f 00:00: mouth in [place] 00 the Medical morning Branch and 1 tablet in the evening. mirabegron 2021-09 Yes [id number] 50mg Take 1 [facility] (MYRBETRIQ) 0-13 tablet by ity of 50 mg 00:00: mouth in [place] tablet 00 the Medical morning. Branch semaglutide 2021-09 Yes [id number] Inject [facility] (OZEMPIC) 0-13 0.25 mg ity of 0.25 mg or 00:00: under the [place] 0.5 mg(2 00 skin Medical mg/1.5 mL) weekly. Branch PnIj topiramate 2021-09 Yes [id number] 75mg Take 3 [facility] 25 mg 0-13 tablets by ity of tablet 00:00: mouth in [place] 00 the Medical morning Branch and 3 tablets in the evening. losartan 50 2021-09 Yes [id number] 50mg Take 1 [facility] mg tablet 0-13 tablet by ity o f 00:00: mouth in [place] 00 the Medical morning Branch and 1 tablet in the evening. mirabegron 2021-09 Yes [id number] 50mg Take 1 [facility] (MYRBETRIQ) 0-13 tablet by ity of 50 mg 00:00: mouth in [place] tablet 00 the Medical morning. Branch semaglutide 2021-09 Yes [id number] Inject [facility] (OZEMPIC) 0-13 0.25 mg ity of 0.25 mg or 00:00: under the [place] 0.5 mg(2 00 skin Medical mg/1.5 mL) weekly. Branch PnIj topiramate 2021-09 Yes [id number] 75mg Take 3 [facility] 25 mg 0-13 tablets by ity of tablet 00:00: mouth in [place] 00 the Medical morning Branch and 3 tablets in the evening. losartan 50 2021-09 Yes [id number] 50mg Take 1 [facility] mg tablet 0-13 tablet by ity o f 00:00: mouth in [place] 00 the Medical morning Branch and 1 tablet in the evening. mirabegron 2021-09 Yes [id number] 50mg Take 1 [facility] (MYRBETRIQ) 0-13 tablet by ity of 50 mg 00:00: mouth in [place] tablet 00 the Medical morning. Branch semaglutide 2021-09 Yes [id number] Inject [facility] (OZEMPIC) 0-13 0.25 mg ity of 0.25 mg or 00:00: under the [place] 0.5 mg(2 00 skin Medical mg/1.5 mL) weekly. Branch PnIj topiramate 2021-09 Yes [id number] 75mg Take 3 [facility] 25 mg 0-13 tablets by ity of tablet 00:00: mouth in [place] 00 the Medical morning Branch and 3 tablets in the evening. losartan 50 2021-09 Yes [id number] 50mg Take 1 [facility] mg tablet 0-13 tablet by ity o f 00:00: mouth in [place] 00 the Medical morning Branch and 1 tablet in the evening. mirabegron 2021-09 Yes [id number] 50mg Take 1 [facility] (MYRBETRIQ) 0-13 tablet by ity of 50 mg 00:00: mouth in [place] tablet 00 the Medical morning. Branch semaglutide 2021-09 Yes [id number] Inject [facility] (OZEMPIC) 0-13 0.25 mg ity of 0.25 mg or 00:00: under the [place] 0.5 mg(2 00 skin Medical mg/1.5 mL) weekly. Branch PnIj topiramate 2021-09 Yes [id number] 75mg Take 3 [facility] 25 mg 0-13 tablets by ity of tablet 00:00: mouth in [place] 00 the Medical morning Branch and 3 tablets in the evening. losartan 50 2021-09 Yes [id number] 50mg Take 1 [facility] mg tablet 0-13 tablet by ity o f 00:00: mouth in [place] 00 the Medical morning Branch and 1 tablet in the evening. mirabegron 2021-09 Yes [id number] 50mg Take 1 [facility] (MYRBETRIQ) 0-13 tablet by ity of 50 mg 00:00: mouth in [place] tablet 00 the Medical morning. Branch semaglutide 2021-09 Yes [id number] Inject [facility] (OZEMPIC) 0-13 0.25 mg ity of 0.25 mg or 00:00: under the [place] 0.5 mg(2 00 skin Medical mg/1.5 mL) weekly. Branch PnIj topiramate 2021-09 Yes [id number] 75mg Take 3 [facility] 25 mg 0-13 tablets by ity of tablet 00:00: mouth in [place] 00 the Medical morning Branch and 3 tablets in the evening. losartan 50 2021-09 Yes [id number] 50mg Take 1 [facility] mg tablet 0-13 tablet by ity o f 00:00: mouth in [place] 00 the Medical morning Branch and 1 tablet in the evening. mirabegron 2021-09 Yes [id number] 50mg Take 1 [facility] (MYRBETRIQ) 0-13 tablet by ity of 50 mg 00:00: mouth in [place] tablet 00 the Medical morning. Branch topiramate 2021-09 Yes [id number] 75mg Take 3 [facility] 25 mg 0-13 tablets by ity of tablet 00:00: mouth in [place] 00 the Medical morning Branch and 3 tablets in the evening. losartan 50 2021-09 Yes [id number] 50mg Take 1 [facility] mg tablet 0-13 tablet by ity o f 00:00: mouth in [place] 00 the Medical morning Branch and 1 tablet in the evening. mirabegron 2021-09 Yes [id number] 50mg Take 1 [facility] (MYRBETRIQ) 0-13 tablet by ity of 50 mg 00:00: mouth in [place] tablet 00 the Medical morning. Branch topiramate 2021-09 Yes [id number] 75mg Take 3 [facility] 25 mg 0-13 tablets by ity of tablet 00:00: mouth in [place] 00 the Medical morning Branch and 3 tablets in the evening. losartan 50 2021-09 Yes [id number] 50mg Take 1 [facility] mg tablet 0-13 tablet by ity o f 00:00: mouth in [place] 00 the Medical morning Branch and 1 tablet in the evening. mirabegron 2021-09 Yes [id number] 50mg Take 1 [facility] (MYRBETRIQ) 0-13 tablet by ity of 50 mg 00:00: mouth in [place] tablet 00 the Medical morning. Branch topiramate 2021-09 Yes [id number] 75mg Take 3 [facility] 25 mg 0-13 tablets by ity of tablet 00:00: mouth in [place] 00 the Medical morning Branch and 3 tablets in the evening. losartan 50 2021-09 Yes [id number] 50mg Take 1 [facility] mg tablet 0-13 tablet by ity o f 00:00: mouth in [place] 00 the Medical morning Branch and 1 tablet in the evening. mirabegron 2021-09 Yes [id number] 50mg Take 1 [facility] (MYRBETRIQ) 0-13 tablet by ity of 50 mg 00:00: mouth in [place] tablet 00 the Medical morning. Branch topiramate 2021-09 Yes [id number] 75mg Take 3 [facility] 25 mg 0-13 tablets by ity of tablet 00:00: mouth in [place] 00 the Medical morning Branch and 3 tablets in the evening. losartan 50 2021-09 Yes [id number] 50mg Take 1 [facility] mg tablet 0-13 tablet by ity o f 00:00: mouth in [place] 00 the Medical morning Branch and 1 tablet in the evening. mirabegron 2021-09 Yes [id number] 50mg Take 1 [facility] (MYRBETRIQ) 0-13 tablet by ity of 50 mg 00:00: mouth in [place] tablet 00 the Medical morning. Branch topiramate 2021-09 Yes [id number] 75mg Take 3 [facility] 25 mg 0-13 tablets by ity of tablet 00:00: mouth in [place] 00 the Medical morning Branch and 3 tablets in the evening. losartan 50 2021-09 Yes [id number] 50mg Take 1 [facility] mg tablet 0-13 tablet by ity o f 00:00: mouth in [place] 00 the Medical morning Branch and 1 tablet in the evening. mirabegron 2021-09 Yes [id number] 50mg Take 1 [facility] (MYRBETRIQ) 0-13 tablet by ity of 50 mg 00:00: mouth in [place] tablet 00 the Medical morning. Branch topiramate 2021-09 Yes [id number] 75mg Take 3 [facility] 25 mg 0-13 tablets by ity of tablet 00:00: mouth in [place] 00 the Medical morning Branch and 3 tablets in the evening. losartan 50 2021-09 Yes [id number] 50mg Take 1 [facility] mg tablet 0-13 tablet by ity o f 00:00: mouth in [place] 00 the Medical morning Branch and 1 tablet in the evening. mirabegron 2021-09 Yes [id number] 50mg Take 1 [facility] (MYRBETRIQ) 0-13 tablet by ity of 50 mg 00:00: mouth in [place] tablet 00 the Medical morning. Branch topiramate 2021-09 Yes [id number] 75mg Take 3 [facility] 25 mg 0-13 tablets by ity of tablet 00:00: mouth in [place] 00 the Medical morning Branch and 3 tablets in the evening. semaglutide 2021-09- No [id number] Inject [facility] (OZEMPIC) 0-13 02-07 0.25 mg ity of 0.25 mg or 00:00: 00:00 under the [place] 0.5 mg(2 00 :00 skin Medical mg/1.5 mL) weekly. Branch PnIj semaglutide 2021-09- No [id number] Inject [facility] (OZEMPIC) 007 0.25 mg ity of 0.25 mg or 00:00: 00:00 under the [place] 0.5 mg(2 00 :00 skin Medical mg/1.5 mL) weekly. [facility] semaglutide 2021-09- No [id number] Inject [facility] (OZEMPIC) 0- 0.25 mg ity of 0.25 mg or 00:00: 00:00 under the [place] 0.5 mg(2 00 :00 skin Medical mg/1.5 mL) weekly. [facility] semaglutide 2021-09- No [id number] Inject [facility] (OZEMPIC) 0-07 0.25 mg ity of 0.25 mg or 00:00: 00:00 under the [place] 0.5 mg(2 00 :00 skin Medical mg/1.5 mL) weekly. [facility] semaglutide 2021-09- No [id number] Inject [facility] (OZEMPIC) 0- 0.25 mg ity of 0.25 mg or 00:00: 00:00 under the [place] 0.5 mg(2 00 :00 skin Medical mg/1.5 mL) weekly. [facility] semaglutide 2021-09- No [id number] Inject [facility] (OZEMPIC) 011-02 0.25 mg ity of 0.25 mg or 00:00: 00:00 under the [place] 0.5 mg(2 00 :00 skin Medical mg/1.5 mL) weekly. [facility] busPIRone 2021-09- No [id number] 20mg Take 2 U nivers 10 mg 10-12 tablets by ity of tablet 00:00: 00:00 mouth in [place] 00 :00 the Medical morning Branch and 2 tablets in the evening. diltiazem 2021-09- No [id number] 120mg Take 1 [facility] 120 mg 24 07-27 capsule by ity of hr capsule 00:00: 00:00 mouth in [place] 00 :00 the Medical morning Branch and 1 capsule in the evening. levothyroxi 2021-09- No [id number] 50ug Take 1 [facility] ne 50 mcg 07-27 tablet by ity of tablet 00:00: 00:00 mouth [place] 00 :00 every Medical morning. Branch metformin 2021-09- No [id number] 500mg Take 1 [facility] ER 500 mg 07-27 tablet by ity of 24 hr 00:00: 00:00 mouth [place] tablet 00 :00 daily with Medical breakfast. Branch STOP REGULAR METFORMIN. pantoprazol 2021-09- No [id number] 40mg Take 1 [facility] e 40 mg EC 07-27 tablet by ity of tablet 00:00: 00:00 mouth in [place] 00 :00 the Medical morning. Branch pregabalin 2021-09- No [id number] 150mg Take 1 [facility] 150 mg 07-27 capsule by ity of capsule 00:00: 00:00 mouth in [place] 00 :00 the Medical morning Branch and 1 capsule at noon and 1 capsule in the evening. rosuvastati 2021-09- No [id number] 10mg Take 1 [facility] n 10 mg 07-27 tablet by ity of tablet 00:00: 00:00 mouth at [place] 00 :00 bedtime. Medical Branch SUMAtriptan 2021-09- No [id number] 50mg Take 1 [facility] 50 mg 07-27 tablet by ity of tablet 00:00: 00:00 mouth as [place] 00 :00 needed for Medical Migraine. Branch diltiazem 2021-09- No [id number] 120mg Take 1 [facility] 120 mg 24 07-27 capsule by ity of hr capsule 00:00: 00:00 mouth in [place] 00 :00 the Medical morning Branch and 1 capsule in the evening. levothyroxi 2021-09- No [id number] 50ug Take 1 [facility] ne 50 mcg 07-27 tablet by ity of tablet 00:00: 00:00 mouth [place] 00 :00 every Medical morning. Branch metformin 2021-09- No [id number] 500mg Take 1 [facility] ER 500 mg 07-27 tablet by ity of 24 hr 00:00: 00:00 mouth [place] tablet 00 :00 daily with Medical breakfast. Branch STOP REGULAR METFORMIN. pantoprazol 2021-09- No [id number] 40mg Take 1 [facility] e 40 mg EC 07-27 tablet by ity of tablet 00:00: 00:00 mouth in [place] 00 :00 the Medical morning. Branch pregabalin 2021-09- No [id number] 150mg Take 1 [facility] 150 mg 07-27 capsule by ity of capsule 00:00: 00:00 mouth in [place] 00 :00 the Medical morning Branch and 1 capsule at noon and 1 capsule in the evening. rosuvastati 2021-09- No [id number] 10mg Take 1 [facility] n 10 mg 07-27 tablet by ity of tablet 00:00: 00:00 mouth at [place] 00 :00 bedtime. Medical Branch SUMAtriptan 2021-09- No [id number] 50mg Take 1 [facility] 50 mg 07-27 tablet by ity of tablet 00:00: 00:00 mouth as [place] 00 :00 needed for Medical Migraine. Branch SUMAtriptan Yes [id number] 50mg Take 1 [facility] 50 mg 9-30 tablet by ity of tablet 00:00: mouth as [place] 00 needed for Medical Migraine. Branch SUMAtriptan Yes [id number] 50mg Take 1 [facility] 50 mg 9-30 tablet by ity of tablet 00:00: mouth as [place] 00 needed for Medical Migraine. Branch SUMAtriptan Yes [id number] 50mg Take 1 [facility] 50 mg 9-30 tablet by ity of tablet 00:00: mouth as [place] 00 needed for Medical Migraine. Branch SUMAtriptan Yes [id number] 50mg Take 1 [facility] 50 mg 9-30 tablet by ity of tablet 00:00: mouth as [place] 00 needed for Medical Migraine. Branch SUMAtriptan Yes [id number] 50mg Take 1 [facility] 50 mg 9-30 tablet by ity of tablet 00:00: mouth as [place] 00 needed for Medical Migraine. Branch SUMAtriptan 2021- No [id number] 50mg Take 1 [facility] 50 mg 9-30 -13 tablet by ity of tablet 00:00: 00:00 mouth as [place] 00 :00 needed for Medical Migraine. Branch FOLIC ACID Yes Take by Univ ers ORAL 9-22 mouth ity of 10:41: daily. [place] [address] Medical Branch MULTIVIT Yes Take by [facility]iver [facility] &MINERALS/F 9-22 mouth. ity of ERROUS FUM 10:41: [place] (MULTI 15 Medical VITAMIN Branch ORAL) METHYLCELLU 0 Yes Univer s LOSE (FIBER 9-22 ity of THERAPY 10:41: [facility]) Medical Branch DOCUSATE Yes Take by [...] Branch unit) tablet CRANBERRY Yes Take by [facility] FRUIT - mouth ity of EXTRACT 10:41: daily. [place] (CRANBERRY 15 Medical ORAL) Branch CALCIUM Yes Take by [facility] ORAL - mouth ity of 10:41: daily. [place] [address] Medical Branch DOCOSAHEXAN Yes 1000mg Take 1,000 [facility] OIC 9-22 mg by ity of ACID/EPA 10:41: mouth [place] (FISH OIL 15 daily. Medical ORAL) Branch BIOTIN ORAL Yes Take by Uni vers - mouth. ity of 10:41: [place] [address] Medical Branch FOLIC ACID Yes Take by Univ ers ORAL - mouth ity of 10:41: daily. [place] [address] Medical Branch MULTIVIT Yes Take by Un[facility] &MINERALS/F 9-22 mouth. ity of ERROUS FUM 10:41: [place] (MULTI 15 Medical VITAMIN Branch ORAL) METHYLCELLU 0 Yes Univer s LOSE (FIBER 9-22 ity of THERAPY 10:41: [facility]) Medical Branch DOCUSATE 0 Yes Take [...] - mouth ity of EXTRACT 10:41: daily. [place] (CRANBERRY 15 Medical ORAL) Branch CALCIUM Yes Take by [facility] ORAL - mouth ity of 10:41: daily. [place] 15 Medical Branch DOCOSAHEXAN Yes 1000mg Take 1,000 [facility] OIC 9-22 mg by ity of ACID/EPA 10:41: mouth [place] (FISH OIL 15 daily. Medical ORAL) Branch BIOTIN ORAL Yes Take by Uni vers 06-17 mouth. ity of 10:41: [place] [address] Medical Branch FOLIC ACID Yes Take by Univ ers ORAL 06-17 mouth ity of 10:41: daily. [place] [address] Medical Branch MULTIVIT Yes Take by Un[facility] &MINERALS/F 06-17 mouth. ity of ERROUS FUM 10:41: [place] (MULTI 15 Medical VITAMIN Branch ORAL) METHYLCELLU Yes Univer s LOSE (FIBER 06-17 ity of THERAPY 10:41: [place] MIS) Medical Branch DOCUSATE Yes Take by Univer s SODIUM - mouth. ity of (COLACE 10:41: [place] ORAL) 15 Medical Branch vitamin C Yes [...] - mouth ity of EXTRACT 10:41: daily. [place] (CRANBERRY 15 Medical ORAL) Branch CALCIUM Yes Take by [facility] ORAL - mouth ity of 10:41: daily. [place] 15 Medical Branch DOCOSAHEXAN Yes 1000mg Take 1,000 [facility] OIC 9-22 mg by ity of ACID/EPA 10:41: mouth [place] (FISH OIL 15 daily. Medical ORAL) Branch BIOTIN ORAL Yes Take by Uni vers - mouth. ity of 10:41: [place] [address] Medical Branch FOLIC ACID Yes Take by Univ ers ORAL 06-17 mouth ity of 10:41: daily. [place] [address] Medical Branch MULTIVIT Yes Take by Univer s &MINERALS/F 06-17 mouth. ity of ERROUS FUM 10:41: [place] (MULTI 15 Medical VITAMIN Branch ORAL) METHYLCELLU Yes [facility] LOSE (FIBER 06-17 ity of THERAPY 10:41: [place] MISC) Medical Branch DOCUSATE Yes Take by [facility] SODIUM - mouth. ity of (COLACE [...] 06-17 mouth ity of EXTRACT 10:41: daily. [place] (CRANBERRY 15 Medical ORAL) Branch CALCIUM Yes Take by [facility] ORAL 06-17 mouth ity of 10:41: daily. [place] [address] Medical Branch DOCOSAHEXAN Yes 1000mg Take 1,000 [facility] OIC 9-22 mg by ity of ACID/EPA 10:41: mouth [place] (FISH OIL 15 daily. Medical ORAL) Branch BIOTIN ORAL Yes Take by Uni vers - mouth. ity of 10:41: [place] [address] Medical Branch FOLIC ACID Yes Take by Univ ers ORAL - mouth ity of 10:41: daily. [place] [address] Medical Branch MULTIVIT Yes Take by Univer s &MINERALS/F - mouth. ity of ERROUS FUM 10:41: [place] (MULTI 15 Medical VITAMIN Branch ORAL) METHYLCELLU 2022-0 Yes Univer s LOSE (FIBER 9-22 ity of THERAPY 10:41: [facility]) 15 Medical Branch DOCUSATE Yes Take [...] Branch unit) tablet CRANBERRY Yes Take by [facility] rs FRUIT 06-17 mouth ity of EXTRACT 10:41: daily. [place] (CRANBERRY 15 Medical ORAL) Branch CALCIUM Yes Take by [facility] ORAL 06-17 mouth ity of 10:41: daily. [place] 15 Medical Branch DOCOSAHEXAN Yes 1000mg Take 1,000 [facility] OIC 9-22 mg by ity of ACID/EPA 10:41: mouth [place] (FISH OIL 15 daily. Medical ORAL) Branch BIOTIN ORAL Yes Take by Uni vers 06-17 mouth. ity of 10:41: [place] [address] Medical Branch FOLIC ACID Yes Take by Univ ers ORAL - mouth ity of 10:41: daily. [place] 15 Medical Branch MULTIVIT Yes Take by [facility] &MINERALS/F 06-17 mouth. ity of ERROUS FUM 10:41: [place] (MULTI 15 Medical VITAMIN Branch ORAL) METHYLCELLU Yes Univer s LOSE (FIBER 9-22 ity of THERAPY 10:41: [facility]) 15 Medical Branch DOCUSATE Yes Take [...] - mouth ity of EXTRACT 10:41: daily. [place] (CRANBERRY 15 Medical ORAL) Branch CALCIUM Yes Take by [facility] ORAL - mouth ity of 10:41: daily. [place] 15 Medical Branch DOCOSAHEXAN Yes 1000mg Take 1,000 [facility] OIC 9-22 mg by ity of ACID/EPA 10:41: mouth [place] (FISH OIL 15 daily. Medical ORAL) Branch BIOTIN ORAL Yes Take by Uni vers 06-17 mouth. ity of 10:41: [place] 15 Medical Branch FOLIC ACID Yes Take by Univ ers ORAL 06-17 mouth ity of 10:41: daily. [place] 15 Medical Branch MULTIVIT Yes Take by Univer s &MINERALS/F 06-17 mouth. ity of ERROUS FUM 10:41: [place] (MULTI 15 Medical VITAMIN Branch ORAL) METHYLCELLU Yes Univer s LOSE (FIBER 06-17 ity of THERAPY 10:41: [place] MISC) 15 Medical Branch DOCUSATE Yes Take [...] - mouth ity of EXTRACT 10:41: daily. [place] (CRANBERRY 15 Medical ORAL) Branch CALCIUM Yes Take by [facility] ORAL - mouth ity of 10:41: daily. [place] 15 Medical Branch DOCOSAHEXAN Yes 1000mg Take 1,000 [facility] OIC 9-22 mg by ity of ACID/EPA 10:41: mouth [place] (FISH OIL 15 daily. Medical ORAL) Branch BIOTIN ORAL Yes Take by Uni vers - mouth. ity of 10:41: [place] [address] Medical Branch FOLIC ACID Yes Take by Univ ers ORAL - mouth ity of 10:41: daily. [place] 15 Medical Branch MULTIVIT Yes Take by Univer s &MINERALS/F - mouth. ity of ERROUS FUM 10:41: [place] (MULTI 15 Medical VITAMIN Branch ORAL) METHYLCELLU Yes Univer s LOSE (FIBER -22 ity of THERAPY 10:41: [place] MIS) 15 Medical Branch DOCUSATE 0 Yes [...] 06-17 mouth ity of EXTRACT 10:41: daily. [place] (CRANBERRY 15 Medical ORAL) Branch CALCIUM Yes Take by [facility] ORAL - mouth ity of 10:41: daily. [place] 15 Medical Branch DOCOSAHEXAN Yes 1000mg Take 1,000 [facility] OIC 9-22 mg by ity of ACID/EPA 10:41: mouth [place] (FISH OIL 15 daily. Medical ORAL) Branch BIOTIN ORAL Yes Take by Uni vers 06-17 mouth. ity of 10:41: [place] [address] Medical Branch FOLIC ACID Yes Take by Univ ers ORAL - mouth ity of 10:41: daily. [place] 15 Medical Branch MULTIVIT Yes Take by Univer s &MINERALS/F - mouth. ity of ERROUS FUM 10:41: [place] (MULTI 15 Medical VITAMIN Branch ORAL) METHYLCELLU 0 Yes Univer s LOSE (FIBER 9-22 ity of THERAPY 10:41: [place] MIS) 15 Medical Branch DOCUSATE 0 Yes [...] - mouth ity of EXTRACT 10:41: daily. [place] (CRANBERRY 15 Medical ORAL) Branch CALCIUM Yes Take by [facility] ORAL 06-17 mouth ity of 10:41: daily. [place] 15 Medical Branch DOCOSAHEXAN Yes 1000mg Take 1,000 [facility] OIC 9-22 mg by ity of ACID/EPA 10:41: mouth [place] (FISH OIL 15 daily. Medical ORAL) Branch BIOTIN ORAL Yes Take by Uni vers 06-17 mouth. ity of 10:41: [place] [address] Medical Branch FOLIC ACID Yes Take by Univ ers ORAL - mouth ity of 10:41: daily. [place] 15 Medical Branch MULTIVIT Yes Take by Univer s &MINERALS/F - mouth. ity of ERROUS FUM 10:41: [place] (MULTI 15 Medical VITAMIN Branch ORAL) METHYLCELLU Yes Univer s LOSE (FIBER - ity of THERAPY 10:41: [place] MIS) 15 Medical Branch DOCUSATE Yes Take [...] - mouth ity of EXTRACT 10:41: daily. [place] (CRANBERRY 15 Medical ORAL) Branch CALCIUM Yes Take by [facility] ORAL 9- mouth ity of 10:41: daily. [place] 15 Medical Branch DOCOSAHEXAN Yes 1000mg Take 1,000 [facility] OIC 9-22 mg by ity of ACID/EPA 10:41: mouth [place] (FISH OIL 15 daily. Medical ORAL) Branch BIOTIN ORAL Yes Take by Uni vers 06-17 mouth. ity of 10:41: [place] 15 Medical Branch FOLIC ACID Yes Take by Univ ers ORAL 06-17 mouth ity of 10:41: daily. [place] [address] Medical Branch MULTIVIT Yes Take by Univer s &MINERALS/F 06-17 mouth. ity of ERROUS FUM 10:41: [place] (MULTI 15 Medical VITAMIN Branch ORAL) METHYLCELLU Yes [facility] s LOSE (FIBER 06-17 ity of THERAPY 10:41: [place] MISC) Medical Branch DOCUSATE Yes Take by [facility] SODIUM 06-17 mouth. ity of (COLACE [...] Branch unit) tablet CRANBERRY Yes Take by [facility] rs FRUIT 06-17 mouth ity of EXTRACT 10:41: daily. [place] (CRANBERRY 15 Medical ORAL) Branch CALCIUM Yes Take by [facility] ORAL - mouth ity of 10:41: daily. [place] Medical Branch DOCOSAHEXAN Yes 1000mg Take 1,000 [facility] OIC 9-22 mg by ity of ACID/EPA 10:41: mouth [place] (FISH OIL 15 daily. Medical ORAL) Branch BIOTIN ORAL Yes Take by Uni vers - mouth. ity of 10:41: [place] [address] Medical Branch FOLIC ACID Yes Take by Univ ers ORAL - mouth ity of 10:41: daily. [place] [address] Medical Branch MULTIVIT Yes Take by Univer s &MINERALS/F -22 mouth. ity of ERROUS FUM 10:41: [place] (MULTI 15 Medical VITAMIN Branch ORAL) METHYLCELLU 0 Yes Univer s LOSE (FIBER 9-22 ity of THERAPY 10:41: [facility]) 15 Medical Branch DOCUSATE Yes Take [...] Branch unit) tablet CRANBERRY Yes Take by [facility] rs FRUIT 06-17 mouth ity of EXTRACT 10:41: daily. [place] (CRANBERRY 15 Medical ORAL) Branch CALCIUM Yes Take by [facility] ORAL - mouth ity of 10:41: daily. [place] [address] Medical Branch DOCOSAHEXAN Yes 1000mg Take 1,000 [facility] OIC 9-22 mg by ity of ACID/EPA 10:41: mouth [place] (FISH OIL 15 daily. Medical ORAL) Branch BIOTIN ORAL Yes Take by Uni vers - mouth. ity of 10:41: [place] [address] Medical Branch FOLIC ACID Yes Take by Univ ers ORAL - mouth ity of 10:41: daily. [place] [address] Medical Branch MULTIVIT Yes Take by Univer s &MINERALS/F - mouth. ity of ERROUS FUM 10:41: [place] (MULTI 15 Medical VITAMIN Branch ORAL) METHYLCELLU Yes Univer s LOSE (FIBER 9-22 ity of THERAPY 10:41: [facility]) 15 Medical Branch DOCUSATE Yes Take by Univer s SODIUM -22 mouth. ity of (COLACE 10:41: [place] ORAL) 15 Medical Branch vitamin C Yes 1000mg Take 1,000 [facility] with derrell 9-22 mg by ity of hips 1,000 10:41: mouth [place] mg tablet 15 daily. Medical Branch cholecalcif 2022-0 Yes 1000U Take 1,000 [facility] edmar, 9-22 Units by ity of vitamin D3, 10:41: mouth [place] 25 mcg 15 daily. Medical (1,000 Branch unit) tablet CRANBERRY Yes Take by Unive rs FRUIT - mouth ity of EXTRACT 10:41: daily. [place] (CRANBERRY 15 Medical ORAL) Branch CALCIUM Yes Take by [facility] ORAL - mouth ity of 10:41: daily. [place] [address] Medical Branch DOCOSAHEXAN Yes 1000mg Take 1,000 [facility] OIC 9-22 mg by ity of ACID/EPA 10:41: mouth [place] (FISH OIL 15 daily. Medical ORAL) Branch BIOTIN ORAL Yes Take by Uni vers 06-17 mouth. ity of 10:41: [place] [address] Medical Branch FOLIC ACID Yes Take by Univ ers ORAL 06-17 mouth ity of 10:41: daily. [place] [address] Medical Branch MULTIVIT Yes Take by Univer s &MINERALS/F 06-17 mouth. ity of ERROUS FUM 10:41: [place] (MULTI 15 Medical VITAMIN Branch ORAL) METHYLCELLU Yes Univer s LOSE (FIBER 06-17 ity of THERAPY 10:41: [place] MISC) Medical Branch DOCUSATE Yes Take by [...] - mouth ity of EXTRACT 10:41: daily. [place] (CRANBERRY 15 Medical ORAL) Branch CALCIUM Yes Take by [facility] ORAL - mouth ity of 10:41: daily. [place] [address] Medical Branch DOCOSAHEXAN Yes 1000mg Take 1,000 [facility] OIC 9-22 mg by ity of ACID/EPA 10:41: mouth [place] (FISH OIL 15 daily. Medical ORAL) Branch BIOTIN ORAL 0 Yes Take by Uni vers - mouth. ity of 10:41: [place] 15 Medical Branch FOLIC ACID 0 Yes Take by Univ ers ORAL - mouth ity of 10:41: daily. [place] 15 Medical Branch MULTIVIT 0 Yes Take by Univer s &MINERALS/F - mouth. ity of ERROUS FUM 10:41: [place] (MULTI 15 Medical VITAMIN Branch ORAL) METHYLCELLU 0 Yes Univer s LOSE (FIBER - ity of THERAPY 10:41: [facility]) 15 Medical Branch vitamin C 0 [...] 06-17 mouth ity of EXTRACT 10:41: daily. [place] (CRANBERRY 15 Medical ORAL) Branch CALCIUM Yes Take by [facility] ORAL 06-17 mouth ity of 10:41: daily. [place] 15 Medical Branch DOCOSAHEXAN 0 Yes 1000mg Take 1,000 [facility] OIC 9-22 mg by ity of ACID/EPA 10:41: mouth [place] (FISH OIL 15 daily. Medical ORAL) Branch BIOTIN ORAL Yes Take by Uni vers - mouth. ity of 10:41: [place] 15 Medical Branch FOLIC ACID 0 Yes Take by Univ ers ORAL - mouth ity of 10:41: daily. [place] 15 Medical Branch MULTIVIT 0 Yes Take by Univer s &MINERALS/F - mouth. ity of ERROUS FUM 10:41: [place] (MULTI 15 Medical VITAMIN Branch ORAL) METHYLCELLU 2021-0 Yes Univer s LOSE (FIBER 9-22 ity of THERAPY 10:41: [place] MIS) Medical Branch vitamin C 0 Yes 1000mg Take 1,000 [facility] with derrell 9-22 mg by ity of hips 1,000 10:41: mouth [place] mg tablet 15 daily. Medical Branch cholecalcif Yes 1000U Take 1,000 [facility] edmar, 9-22 Units by ity of vitamin D3, 10:41: mouth [place] 25 mcg 15 daily. Medical (1,000 Branch unit) tablet CRANBERRY 0 Yes Take by Unive rs FRUIT 06-17 mouth ity of EXTRACT 10:41: daily. [place] (CRANBERRY 15 Medical ORAL) Branch CALCIUM Yes Take by [facility] ORAL 06-17 mouth ity of 10:41: daily. [place] Medical Branch DOCOSAHEXAN Yes 1000mg Take 1,000 [facility] OIC 9-22 mg by ity of ACID/EPA 10:41: mouth [place] (FISH OIL 15 daily. Medical ORAL) Branch BIOTIN ORAL Yes Take by Uni vers 06-17 mouth. ity of 10:41: [place] [address] Medical Branch FOLIC ACID Yes Take by Univ ers ORAL 06-17 mouth ity of 10:41: daily. [place] [address] Medical Branch MULTIVIT Yes Take by Univer s &MINERALS/F 06-17 mouth. ity of ERROUS FUM 10:41: [place] (MULTI 15 Medical VITAMIN Branch ORAL) METHYLCELLU Yes [facility] LOSE (FIBER 06-17 ity of THERAPY 10:41: [facility]) Medical Branch vitamin C Yes 1000mg [...] - mouth ity of EXTRACT 10:41: daily. [place] (CRANBERRY 15 Medical ORAL) Branch CALCIUM Yes Take by [facility] ORAL 06-17 mouth ity of 10:41: daily. [place] 15 Medical Branch DOCOSAHEXAN Yes 1000mg Take 1,000 [facility] OIC 9-22 mg by ity of ACID/EPA 10:41: mouth [place] (FISH OIL 15 daily. Medical ORAL) Branch BIOTIN ORAL Yes Take by Uni vers 06-17 mouth. ity of 10:41: [place] 15 Medical Branch FOLIC ACID 0 Yes Take by Uni vers ORAL - mouth ity of 10:41: daily. [place] 15 Medical Branch MULTIVIT 0 Yes Take by Univer s &MINERALS/F 06-17 mouth. ity of ERROUS FUM 10:41: [place] (MULTI 15 Medical VITAMIN Branch ORAL) METHYLCELLU 0 Yes Univer s LOSE (FIBER 06-17 ity of THERAPY 10:41: [facility]) 15 Medical Branch vitamin C 0 Yes 1000mg Take 1,000 [facility] with derrell 9-22 mg by ity of hips 1,000 10:41: mouth [place] mg tablet 15 daily. Medical Branch cholecalcif 0 Yes 1000U Take 1,000 [facility] edmar, 9-22 Units by ity of vitamin D3, 10:41: mouth [place] 25 mcg 15 daily. Medical (1,000 Branch unit) tablet CRANBERRY Yes Take by [facility] rs FRUIT 06-17 mouth ity of EXTRACT 10:41: daily. [place] (CRANBERRY 15 Medical ORAL) Branch CALCIUM Yes Take by [facility] ORAL 06-17 mouth ity of 10:41: daily. [place] [address] Medical Branch DOCOSAHEXAN Yes 1000mg Take 1,000 [facility] OIC 9-22 mg by ity of ACID/EPA 10:41: mouth [place] (FISH OIL 15 daily. Medical ORAL) Branch BIOTIN ORAL Yes Take by Uni vers - mouth. ity of 10:41: [place] [address] Medical Branch FOLIC ACID 0 Yes Take by Univ ers ORAL - mouth ity of 10:41: daily. [place] 15 Medical Branch MULTIVIT 0 Yes Take by Univer s &MINERALS/F - mouth. ity of ERROUS FUM 10:41: [place] (MULTI 15 Medical VITAMIN Branch ORAL) METHYLCELLU 2021-0 Yes Univer s LOSE (FIBER 9-22 ity of THERAPY 10:41: [facility]) Medical Branch vitamin C 0 Yes [...] - mouth ity of EXTRACT 10:41: daily. [place] (CRANBERRY 15 Medical ORAL) Branch CALCIUM Yes Take by [facility] ORAL - mouth ity of 10:41: daily. [place] 15 Medical Branch DOCOSAHEXAN Yes 1000mg Take 1,000 [facility] OIC 9-22 mg by ity of ACID/EPA 10:41: mouth [place] (FISH OIL 15 daily. Medical ORAL) Branch BIOTIN ORAL Yes Take by Uni vers 06-17 mouth. ity of 10:41: [place] [address] Medical Branch FOLIC ACID Yes Take by Univ ers ORAL 06-17 mouth ity of 10:41: daily. [place] [address] Medical Branch MULTIVIT Yes Take by Univer s &MINERALS/F 06-17 mouth. ity of ERROUS FUM 10:41: [place] (MULTI 15 Medical VITAMIN Branch ORAL) METHYLCELLU Yes Univer s LOSE (FIBER 06-17 ity of THERAPY 10:41: [place] MIS) 15 Medical Branch vitamin C Yes [...] - mouth ity of EXTRACT 10:41: daily. [place] (CRANBERRY 15 Medical ORAL) Branch CALCIUM Yes Take by Univers ORAL - mouth ity of 10:41: daily. [place] 15 Medical Branch DOCOSAHEXAN Yes 1000mg Take 1,000 [facility] OIC 9-22 mg by ity of ACID/EPA 10:41: mouth [place] (FISH OIL 15 daily. Medical ORAL) Branch BIOTIN ORAL Yes Take by Uni vers 06-17 mouth. ity of 10:41: [place] [address] Medical Branch FOLIC ACID 2022-0 Yes Take by Univ ers ORAL - mouth ity of 10:41: daily. [place] 15 Medical Branch MULTIVIT 0 Yes Take by Univer s &MINERALS/F - mouth. ity of ERROUS FUM 10:41: [place] (MULTI 15 Medical VITAMIN Branch ORAL) METHYLCELLU 0 Yes Univer s LOSE (FIBER 9-22 ity of THERAPY 10:41: [facility]) 15 Medical Branch vitamin C 0 Yes 1000mg Take 1,000 [facility] with derrell 9-22 mg by ity of hips 1,000 10:41: mouth [place] mg tablet 15 daily. Medical Branch cholecalcif 0 Yes 1000U Take 1,000 [facility] edmar, 9-22 Units by ity of vitamin D3, 10:41: mouth [place] 25 mcg 15 daily. Medical (1,000 Branch unit) tablet CRANBERRY Yes Take by [facility] FRUIT - mouth ity of EXTRACT 10:41: daily. [place] (CRANBERRY 15 Medical ORAL) Branch CALCIUM Yes Take by Univers ORAL - mouth ity of 10:41: daily. [place] 15 Medical Branch DOCOSAHEXAN Yes 1000mg Take 1,000 [facility] OIC 9-22 mg by ity of ACID/EPA 10:41: mouth [place] (FISH OIL 15 daily. Medical ORAL) Branch BIOTIN ORAL 0 Yes Take by Uni vers - mouth. ity of 10:41: [place] [address] Medical Branch FOLIC ACID Yes Take by Univ ers ORAL - mouth ity of 10:41: daily. [place] 15 Medical Branch MULTIVIT Yes Take by Univer s &MINERALS/F - mouth. ity of ERROUS FUM 10:41: [place] (MULTI 15 Medical VITAMIN Branch ORAL) METHYLCELLU 2021-0 Yes Univer s LOSE (FIBER 9-22 ity of THERAPY 10:41: [facility]) 15 Medical Branch vitamin C 0 [...] 06-17 mouth ity of EXTRACT 10:41: daily. [place] (CRANBERRY 15 Medical ORAL) Branch CALCIUM Yes Take by Univers ORAL - mouth ity of 10:41: daily. [place] [address] Medical Branch DOCOSAHEXAN Yes 1000mg Take 1,000 [facility] OIC 9-22 mg by ity of ACID/EPA 10:41: mouth [place] (FISH OIL 15 daily. Medical ORAL) Branch BIOTIN ORAL Yes Take by Uni vers 06-17 mouth. ity of 10:41: [place] [address] Medical Branch FOLIC ACID Yes Take by Univ ers ORAL - mouth ity of 10:41: daily. [place] [address] Medical Branch MULTIVIT Yes Take by Univer s &MINERALS/F 06-17 mouth. ity of ERROUS FUM 10:41: [place] (MULTI 15 Medical VITAMIN Branch ORAL) METHYLCELLU Yes Univer s LOSE (FIBER 06-17 ity of THERAPY 10:41: [facility]) Medical Branch vitamin C Yes 1000mg [...] - mouth ity of EXTRACT 10:41: daily. [place] (CRANBERRY 15 Medical ORAL) Branch CALCIUM Yes Take by Univers ORAL - mouth ity of 10:41: daily. [place] [address] Medical Branch DOCOSAHEXAN Yes 1000mg Take 1,000 [facility] OIC 9-22 mg by ity of ACID/EPA 10:41: mouth [place] (FISH OIL 15 daily. Medical ORAL) Branch BIOTIN ORAL Yes Take by Uni vers 06-17 mouth. ity of 10:41: [place] [address] Medical Branch FOLIC ACID Yes Take by Univ ers ORAL - mouth ity of 10:41: daily. [place] 15 Medical Branch MULTIVIT Yes Take by Univer s &MINERALS/F - mouth. ity of ERROUS FUM 10:41: [place] (MULTI 15 Medical VITAMIN Branch ORAL) METHYLCELLU 0 Yes Univer s LOSE (FIBER 9-22 ity of THERAPY 10:41: [facility]) Medical Branch vitamin C 0 Yes [...] - mouth ity of EXTRACT 10:41: daily. [place] (CRANBERRY 15 Medical ORAL) Branch CALCIUM Yes Take by Univers ORAL - mouth ity of 10:41: daily. [place] [address] Medical Branch DOCOSAHEXAN Yes 1000mg Take 1,000 [facility] OIC 9-22 mg by ity of ACID/EPA 10:41: mouth [place] (FISH OIL 15 daily. Medical ORAL) Branch BIOTIN ORAL Yes Take by Uni vers - mouth. ity of 10:41: [place] [address] Medical Branch FOLIC ACID 0 Yes Take by Univ ers ORAL - mouth ity of 10:41: daily. [place] [address] Medical Branch MULTIVIT Yes Take by Univer s &MINERALS/F - mouth. ity of ERROUS FUM 10:41: [place] (MULTI 15 Medical VITAMIN Branch ORAL) METHYLCELLU 2021-0 Yes Univer s LOSE (FIBER 9-22 ity of THERAPY 10:41: [facility]) Medical Branch vitamin C 0 Yes 1000mg Take 1,000 [facility] with derrell 9-22 mg by ity of hips 1,000 10:41: mouth [place] mg tablet 15 daily. Medical Branch cholecalcif 0 Yes 1000U Take 1,000 [facility] demar, 9-22 Units by ity of vitamin D3, 10:41: mouth [place] 25 mcg 15 daily. Medical (1,000 Branch unit) tablet CRANBERRY 0 Yes Take by Unive rs FRUIT 9-22 mouth ity of EXTRACT 10:41: daily. [place] (CRANBERRY 15 Medical ORAL) Branch CALCIUM Yes Take by Univers ORAL - mouth ity of 10:41: daily. [place] [address] Medical Branch DOCOSAHEXAN Yes 1000mg Take 1,000 [facility] OIC 9-22 mg by ity of ACID/EPA 10:41: mouth [place] (FISH OIL 15 daily. Medical ORAL) Branch BIOTIN ORAL Yes Take by Uni vers 06-17 mouth. ity of 10:41: [place] [address] Medical Branch FOLIC ACID Yes Take by Univ ers ORAL 06-17 mouth ity of 10:41: daily. [place] [address] Medical Branch MULTIVIT Yes Take by Univer s &MINERALS/F 06-17 mouth. ity of ERROUS FUM 10:41: [place] (MULTI 15 Medical VITAMIN Branch ORAL) METHYLCELLU Yes [facility] LOSE (FIBER 06-17 ity of THERAPY 10:41: [place] [address] Medical Branch vitamin C Yes 1000mg Take [...] 06-17 mouth ity of EXTRACT 10:41: daily. [place] (CRANBERRY 15 Medical ORAL) Branch CALCIUM Yes Take by Univers ORAL - mouth ity of 10:41: daily. [place] [address] Medical Branch DOCOSAHEXAN Yes 1000mg Take 1,000 [facility] OIC 9-22 mg by ity of ACID/EPA 10:41: mouth [place] (FISH OIL 15 daily. Medical ORAL) Branch BIOTIN ORAL Yes Take by Uni vers - mouth. ity of 10:41: [place] [address] Medical Branch FOLIC ACID Yes Take by Univ ers ORAL - mouth ity of 10:41: daily. [place] [address] Medical Branch MULTIVIT Yes Take by Univer s &MINERALS/F 9-22 mouth. ity of ERROUS FUM 10:41: [place] (MULTI 15 Medical VITAMIN Branch ORAL) METHYLCELLU 2021-0 Yes Univer s LOSE (FIBER -22 ity of THERAPY 10:41: [facility]) 15 Medical Branch vitamin C 0 [...] - mouth ity of EXTRACT 10:41: daily. [place] (CRANBERRY 15 Medical ORAL) Branch CALCIUM Yes Take by Univers ORAL - mouth ity of 10:41: daily. [place] 15 Medical Branch DOCOSAHEXAN Yes 1000mg Take 1,000 [facility] OIC 9-22 mg by ity of ACID/EPA 10:41: mouth [place] (FISH OIL 15 daily. Medical ORAL) Branch BIOTIN ORAL Yes Take by Uni vers - mouth. ity of 10:41: [place] [address] Medical Branch FOLIC ACID 0 Yes Take by Univ ers ORAL - mouth ity of 10:41: daily. [place] [address] Medical Branch MULTIVIT Yes Take by Univer s &MINERALS/F - mouth. ity of ERROUS FUM 10:41: [place] (MULTI 15 Medical VITAMIN Branch ORAL) METHYLCELLU 2021-0 Yes Univer s LOSE (FIBER 9-22 ity of THERAPY 10:41: [facility]) Medical Branch vitamin C Yes 1000mg [...] -22 mouth ity of EXTRACT 10:41: daily. [place] (CRANBERRY 15 Medical ORAL) Branch CALCIUM Yes Take by Univers ORAL 9-22 mouth ity of 10:41: daily. [place] 15 Medical Branch DOCOSAHEXAN Yes 1000mg Take 1,000 [facility] OIC 9-22 mg by ity of ACID/EPA 10:41: mouth [place] (FISH OIL 15 daily. Medical ORAL) Branch BIOTIN ORAL Yes Take by Uni vers - mouth. ity of 10:41: [place] 15 Medical Branch FOLIC ACID 0 Yes Take by Univ ers ORAL - mouth ity of 10:41: daily. [place] [address] Medical Branch MULTIVIT Yes Take by Univer s &MINERALS/F - mouth. ity of ERROUS FUM 10:41: [place] (MULTI 15 Medical VITAMIN Branch ORAL) METHYLCELLU Yes Univer s LOSE (FIBER - ity of THERAPY 10:41: [facility]) Medical Branch vitamin C Yes 1000mg [...] - mouth ity of EXTRACT 10:41: daily. [place] (CRANBERRY 15 Medical ORAL) Branch CALCIUM Yes Take by Univers ORAL 9- mouth ity of 10:41: daily. [place] [address] Medical Branch DOCOSAHEXAN Yes 1000mg Take 1,000 [facility] OIC 9-22 mg by ity of ACID/EPA 10:41: mouth [place] (FISH OIL 15 daily. Medical ORAL) Branch BIOTIN ORAL Yes Take by Uni vers 9-22 mouth. ity of 10:41: [place] [address] Medical Branch FOLIC ACID 0 Yes Take by Univ ers ORAL 9- mouth ity of 10:41: daily. [place] [address] Medical Branch MULTIVIT Yes Take by Univer s &MINERALS/F - mouth. ity of ERROUS FUM 10:41: [place] (MULTI 15 Medical VITAMIN Branch ORAL) METHYLCELLU 2022-0 Yes Univer s LOSE (FIBER 9-22 ity of THERAPY 10:41: [facility]) 15 Medical Branch vitamin C 2021-0 Yes [...] - mouth ity of EXTRACT 10:41: daily. [place] (CRANBERRY 15 Medical ORAL) Branch CALCIUM Yes Take by Univers ORAL - mouth ity of 10:41: daily. [place] 15 Medical Branch DOCOSAHEXAN Yes 1000mg Take 1,000 [facility] OIC 9-22 mg by ity of ACID/EPA 10:41: mouth [place] (FISH OIL 15 daily. Medical ORAL) Branch BIOTIN ORAL Yes Take by Uni vers 06-17 mouth. ity of 10:41: [place] [address] Medical Branch FOLIC ACID 0 Yes Take by Univ ers ORAL - mouth ity of 10:41: daily. [place] [address] Medical Branch MULTIVIT Yes Take by Univer s &MINERALS/F - mouth. ity of ERROUS FUM 10:41: [place] (MULTI 15 Medical VITAMIN Branch ORAL) METHYLCELLU 2021-0 Yes Univer s LOSE (FIBER 9-22 ity of THERAPY 10:41: [facility]) 15 Medical Branch vitamin C 0 [...] - mouth ity of EXTRACT 10:41: daily. [place] (CRANBERRY 15 Medical ORAL) Branch CALCIUM 0 Yes Take by Univers ORAL - mouth ity of 10:41: daily. [place] 15 Medical Branch DOCOSAHEXAN Yes 1000mg Take 1,000 [facility] OIC 9-22 mg by ity of ACID/EPA 10:41: mouth [place] (FISH OIL 15 daily. Medical ORAL) Branch BIOTIN ORAL 0 Yes Take by Uni vers 9-22 mouth. ity of 10:41: [place] 15 Medical Branch FOLIC ACID 0 Yes Take by Univ ers ORAL 9-22 mouth ity of 10:41: daily. [place] 15 Medical Branch MULTIVIT 0 Yes Take by Univer s &MINERALS/F - mouth. ity of ERROUS FUM 10:41: [place] (MULTI 15 Medical VITAMIN Branch ORAL) METHYLCELLU 0 Yes Univer s LOSE (FIBER - ity of THERAPY 10:41: [facility]) Medical Branch vitamin C Yes 1000mg [...] - mouth ity of EXTRACT 10:41: daily. [place] (CRANBERRY 15 Medical ORAL) Branch CALCIUM Yes Take by Univers ORAL 9-22 mouth ity of 10:41: daily. [place] [address] Medical Branch DOCOSAHEXAN Yes 1000mg Take 1,000 Univers OIC 9-22 mg by ity of ACID/EPA 10:41: mouth [place] (FISH OIL 15 daily. Medical ORAL) Branch BIOTIN ORAL 0 Yes Take by Uni vers 9-22 mouth. ity of 10:41: [place] [address] Medical Branch FOLIC ACID 0 Yes Take by Univ ers ORAL 9-22 mouth ity of 10:41: daily. [place] [address] Medical Branch MULTIVIT 0 Yes Take by Univer s &MINERALS/F - mouth. ity of ERROUS FUM 10:41: [place] (MULTI 15 Medical VITAMIN Branch ORAL) METHYLCELLU 2021-0 Yes Univer s LOSE (FIBER 9-22 ity of THERAPY 10:41: [facility]) 15 Medical Branch vitamin C Yes [...] 06-17 mouth ity of EXTRACT 10:41: daily. [place] (CRANBERRY 15 Medical ORAL) Branch CALCIUM Yes Take by Univers ORAL 06-17 mouth ity of 10:41: daily. [place] [address] Medical Branch DOCOSAHEXAN Yes 1000mg Take 1,000 Univers OIC 9-22 mg by ity of ACID/EPA 10:41: mouth [place] (FISH OIL 15 daily. Medical ORAL) Branch BIOTIN ORAL Yes Take by Uni vers 06-17 mouth. ity of 10:41: [place] [address] Medical Branch FOLIC ACID Yes Take by Univ ers ORAL 06-17 mouth ity of 10:41: daily. [place] [address] Medical Branch MULTIVIT Yes Take by Univer s &MINERALS/F 06-17 mouth. ity of ERROUS FUM 10:41: [place] (MULTI 15 Medical VITAMIN Branch ORAL) METHYLCELLU Yes Univer s LOSE (FIBER 06-17 ity of THERAPY 10:41: [facility]) 15 Medical Branch vitamin C Yes [...] - mouth ity of EXTRACT 10:41: daily. [place] (CRANBERRY 15 Medical ORAL) Branch CALCIUM Yes Take by Univers ORAL - mouth ity of 10:41: daily. [place] [address] Medical Branch DOCOSAHEXAN Yes 1000mg Take 1,000 [facility] OIC 9-22 mg by ity of ACID/EPA 10:41: mouth [place] (FISH OIL 15 daily. Medical ORAL) Branch BIOTIN ORAL 0 Yes Take by Uni vers -22 mouth. ity of 10:41: [place] 15 Medical Branch FOLIC ACID 0 Yes Take by Univ ers ORAL - mouth ity of 10:41: daily. [place] 15 Medical Branch MULTIVIT 0 Yes Take by Univer s &MINERALS/F - mouth. ity of ERROUS FUM 10:41: [place] (MULTI 15 Medical VITAMIN Branch ORAL) METHYLCELLU 0 Yes Univer s LOSE (FIBER 9-22 ity of THERAPY 10:41: [facility]) 15 Medical Branch vitamin C Yes [...] - mouth ity of EXTRACT 10:41: daily. [place] (CRANBERRY 15 Medical ORAL) Branch CALCIUM Yes Take by Univers ORAL - mouth ity of 10:41: daily. [place] 15 Medical Branch DOCOSAHEXAN Yes 1000mg Take 1,000 [facility] OIC 9-22 mg by ity of ACID/EPA 10:41: mouth [place] (FISH OIL 15 daily. Medical ORAL) Branch BIOTIN ORAL Yes Take by Uni vers -22 mouth. ity of 10:41: [place] 15 Medical Branch FOLIC ACID 0 Yes Take by Univ ers ORAL 9- mouth ity of 10:41: daily. [place] 15 Medical Branch MULTIVIT 0 Yes Take by Univer s &MINERALS/F - mouth. ity of ERROUS FUM 10:41: [place] (MULTI 15 Medical VITAMIN Branch ORAL) METHYLCELLU 0 Yes Univer s LOSE (FIBER 9-22 ity of THERAPY 10:41: [facility]) 15 Medical Branch vitamin C 0 [...] 06-17 mouth ity of EXTRACT 10:41: daily. [place] (CRANBERRY 15 Medical ORAL) Branch CALCIUM Yes Take by Univers ORAL 06-17 mouth ity of 10:41: daily. [place] 15 Medical Branch DOCOSAHEXAN Yes 1000mg Take 1,000 [facility] OIC 9-22 mg by ity of ACID/EPA 10:41: mouth [place] (FISH OIL 15 daily. Medical ORAL) Branch BIOTIN ORAL Yes Take by Uni vers 06-17 mouth. ity of 10:41: [place] [address] Medical Branch FOLIC ACID Yes Take by Univ ers ORAL 06-17 mouth ity of 10:41: daily. [place] [address] Medical Branch MULTIVIT Yes Take by [facility] s &MINERALS/F 06-17 mouth. ity of ERROUS FUM 10:41: [place] (MULTI 15 Medical VITAMIN Branch ORAL) METHYLCELLU Yes [facility] s LOSE (FIBER 06-17 ity of THERAPY 10:41: [place] [facility]) Medical Branch vitamin C Yes 1000mg Take [...] - mouth ity of EXTRACT 10:41: daily. [place] (CRANBERRY 15 Medical ORAL) Branch CALCIUM Yes Take by Univers ORAL - mouth ity of 10:41: daily. [place] 15 Medical Branch DOCOSAHEXAN Yes 1000mg Take 1,000 [facility] OIC 9-22 mg by ity of ACID/EPA 10:41: mouth [place] (FISH OIL 15 daily. Medical ORAL) Branch BIOTIN ORAL 0 Yes Take by Uni vers - mouth. ity of 10:41: [place] 15 Medical Branch FOLIC ACID 0 Yes Take by Uni vers ORAL - mouth ity of 10:41: daily. [place] 15 Medical Branch MULTIVIT 0 Yes Take by Univer s &MINERALS/F - mouth. ity of ERROUS FUM 10:41: [place] (MULTI 15 Medical VITAMIN Branch ORAL) METHYLCELLU 0 Yes Univer s LOSE (FIBER -22 ity of THERAPY 10:41: [facility]) 15 Medical Branch vitamin C 0 [...] 06-17 mouth ity of EXTRACT 10:41: daily. [place] (CRANBERRY 15 Medical ORAL) Branch CALCIUM Yes Take by Univers ORAL - mouth ity of 10:41: daily. [place] 15 Medical Branch DOCOSAHEXAN 0 Yes 1000mg Take 1,000 [facility] OIC 9-22 mg by ity of ACID/EPA 10:41: mouth [place] (FISH OIL 15 daily. Medical ORAL) Branch BIOTIN ORAL Yes Take by Uni vers - mouth. ity of 10:41: [place] 15 Medical Branch FOLIC ACID 0 Yes Take by Univ ers ORAL - mouth ity of 10:41: daily. [place] 15 Medical Branch MULTIVIT 0 Yes Take by Univer s &MINERALS/F - mouth. ity of ERROUS FUM 10:41: [place] (MULTI 15 Medical VITAMIN Branch ORAL) METHYLCELLU 2021-0 Yes Univer s LOSE (FIBER 9-22 ity of THERAPY 10:41: [facility]) 15 Medical Branch vitamin C 0 [...] 06-17 mouth ity of EXTRACT 10:41: daily. [place] (CRANBERRY 15 Medical ORAL) Branch CALCIUM Yes Take by Univers ORAL 06-17 mouth ity of 10:41: daily. [place] 15 Medical Branch DOCOSAHEXAN Yes 1000mg Take 1,000 [facility] OIC 9-22 mg by ity of ACID/EPA 10:41: mouth [place] (FISH OIL 15 daily. Medical ORAL) Branch BIOTIN ORAL Yes Take by Uni vers 06-17 mouth. ity of 10:41: [place] [address] Medical Branch FOLIC ACID Yes Take by Univ ers ORAL 06-17 mouth ity of 10:41: daily. [place] [address] Medical Branch MULTIVIT Yes Take by Univer s &MINERALS/F 06-17 mouth. ity of ERROUS FUM 10:41: [place] (MULTI 15 Medical VITAMIN Branch ORAL) METHYLCELLU Yes Univer s LOSE (FIBER 06-17 ity of THERAPY 10:41: [facility]) Medical Branch vitamin C Yes 1000mg [...] - mouth ity of EXTRACT 10:41: daily. [place] (CRANBERRY 15 Medical ORAL) Branch CALCIUM Yes Take by Univers ORAL 06-17 mouth ity of 10:41: daily. [place] Medical Branch DOCOSAHEXAN Yes 1000mg Take 1,000 Univers OIC 9-22 mg by ity of ACID/EPA 10:41: mouth [place] (FISH OIL 15 daily. Medical ORAL) Branch BIOTIN ORAL Yes Take by Uni vers 9-22 mouth. ity of 10:41: [place] 15 Medical Branch SUMAtriptan 2022-0 Yes [id number] 50mg Take 1 Univers 50 mg 9-22 tablet by ity of tablet 00:00: mouth as [place] 00 needed for Medical Migraine. Branch topiramate 2022-0 Yes [id number] 75mg Take 3 Univers 25 mg 9-22 tablets by ity of tablet 00:00: mouth in [place] 00 the Medical morning Branch and 3 tablets in the evening. SUMAtriptan 2022-0 Yes [id number] 50mg Take 1 [facility] 50 mg 9-22 tablet by ity of tablet 00:00: mouth as [place] 00 needed for Medical Migraine. Branch topiramate 2022-0 Yes [id number] 75mg Take 3 Univers 25 mg 9-22 tablets by ity of tablet 00:00: mouth in [place] 00 the Medical morning Branch and 3 tablets in the evening. SUMAtriptan 2022-0 Yes [id number] 50mg Take 1 Univers 50 mg 9-22 tablet by ity of tablet 00:00: mouth as [place] 00 needed for Medical Migraine. Branch topiramate 2022-0 Yes [id number] 75mg Take 3 Univers 25 mg 9-22 tablets by ity of tablet 00:00: mouth in [place] 00 the Medical morning Branch and 3 tablets in the evening. SUMAtriptan 2022-0 Yes [id number] 50mg Take 1 Univers 50 mg 9-22 tablet by ity of tablet 00:00: mouth as [place] 00 needed for Medical Migraine. Branch topiramate 2022-0 Yes [id number] 75mg Take 3 Univers 25 mg 9-22 tablets by ity of tablet 00:00: mouth in [place] 00 the Medical morning Branch and 3 tablets in the evening. topiramate 2022-0 Yes [id number] 75mg Take 3 Univers 25 mg 9-22 tablets by ity of tablet 00:00: mouth in [place] 00 the Medical morning Branch and 3 tablets in the evening. topiramate 2022-0 Yes [id number] 75mg Take 3 Univers 25 mg 9-22 tablets by ity of tablet 00:00: mouth in [place] 00 the Medical morning Branch and 3 tablets in the evening. topiramate 2022-0 Yes [id number] 75mg Take 3 [facility] 25 mg 9-22 tablets by ity of tablet 00:00: mouth in [place] 00 the Medical morning Branch and 3 tablets in the evening. topiramate 2021-0 Yes [id number] 75mg Take 3 [facility] 25 mg 9-22 tablets by ity of tablet 00:00: mouth in [place] 00 the Medical morning Branch and 3 tablets in the evening. topiramate 2021-0 Yes [id number] 75mg Take 3 [facility] 25 mg 9-22 tablets by ity of tablet 00:00: mouth in [place] 00 the Medical morning Branch and 3 tablets in the evening. topiramate 2021-0 Yes [id number] 75mg Take 3 [facility] 25 mg 9-22 tablets by ity of tablet 00:00: mouth in [place] 00 the Medical morning Branch and 3 tablets in the evening. topiramate 2021-0 2021- No [id number] 75mg Take 3 Univers 25 mg 9-22 10-13 tablets by ity of tablet 00:00: 00:00 mouth in [place] 00 :00 the Medical morning Branch and 3 tablets in the evening. SUMAtriptan 2021-2021- No [id number] 50mg Take 1 Univers 50 mg 9-22 09-30 tablet by ity of tablet 00:00: 00:00 mouth as [place] 00 :00 needed for Medical Migraine. Branch pantoprazol 2021-0 Yes [id number] 40mg Take 1 Univers e 40 mg EC 9-16 tablet by ity of tablet 00:00: mouth in [place] 00 the Medical morning. Branch Simethicone 2021-0 Yes [id number] 125mg Take 1 Univers 125 mg 9-16 capsule by ity of 00:00: mouth [place] 00 after Medical meals and Branch at bedtime as needed for Gas (Per bowel prep). pantoprazol 2021-0 Yes [id number] 40mg Take 1 Univers e 40 mg EC 9-16 tablet by ity of tablet 00:00: mouth in [place] 00 the Medical morning. Branch Simethicone 2021-0 Yes [id number] 125mg Take 1 Univers 125 mg 9-16 capsule by ity of 00:00: mouth [place] 00 after Medical meals and Branch at bedtime as needed for Gas (Per bowel prep). pantoprazol 2021-0 Yes [id number] 40mg Take 1 Univers e 40 mg EC 9-16 tablet by ity of tablet 00:00: mouth in [place] 00 the Medical morning. Branch Simethicone 0 Yes [id number] 125mg Take 1 [facility] 125 mg 9-16 capsule by ity of 00:00: mouth [place] 00 after Medical meals and Branch at bedtime as needed for Gas (Per bowel prep). pantoprazol 0 Yes [id number] 40mg Take 1 Univers e 40 mg EC 9-16 tablet by ity of tablet 00:00: mouth in [place] 00 the Medical morning. Branch Simethicone 0 Yes [id number] 125mg Take 1 Univers 125 mg 9-16 capsule by ity of 00:00: mouth [place] 00 after Medical meals and Branch at bedtime as needed for Gas (Per bowel prep). pantoprazol Yes [id number] 40mg Take 1 Univers e 40 mg EC 9-16 tablet by ity of tablet 00:00: mouth in [place] 00 the Medical morning. Branch Simethicone Yes [id number] 125mg Take 1 [facility] 125 mg 9-16 capsule by ity of 00:00: mouth [place] 00 after Medical meals and Branch at bedtime as needed for Gas (Per bowel prep). pantoprazol Yes [id number] 40mg Take 1 Univers e 40 mg EC 9-16 tablet by ity of tablet 00:00: mouth in [place] 00 the Medical morning. Branch Simethicone 0 Yes [id number] 125mg Take 1 [facility] 125 mg 9-16 capsule by ity of 00:00: mouth [place] 00 after Medical meals and Branch at bedtime as needed for Gas (Per bowel prep). pantoprazol 2021-0 Yes [id number] 40mg Take 1 Univers e 40 mg EC 9-16 tablet by ity of tablet 00:00: mouth in [place] 00 the Medical morning. Branch Simethicone Yes [id number] 125mg Take 1 [facility] 125 mg 9-16 capsule by ity of 00:00: mouth [place] 00 after Medical meals and Branch at bedtime as needed for Gas (Per bowel prep). pantoprazol 2021-0 Yes [id number] 40mg Take 1 Univers e 40 mg EC 9-16 tablet by ity of tablet 00:00: mouth in [place] 00 the Medical morning. Branch Simethicone 0 Yes [id number] 125mg Take 1 Univers 125 mg 9-16 capsule by ity of 00:00: mouth [place] 00 after Medical meals and Branch at bedtime as needed for Gas (Per bowel prep). pantoprazol 2021-0 Yes [id number] 40mg Take 1 Univers e 40 mg EC 9-16 tablet by ity of tablet 00:00: mouth in [place] 00 the Medical morning. Branch Simethicone 2021-0 Yes [id number] 125mg Take 1 Univers 125 mg 9-16 capsule by ity of 00:00: mouth [place] 00 after Medical meals and Branch at bedtime as needed for Gas (Per bowel prep). pantoprazol 2021-0 Yes [id number] 40mg Take 1 Univers e 40 mg EC 9-16 tablet by ity of tablet 00:00: mouth in [place] 00 the Medical morning. Branch Simethicone 2021-0 Yes [id number] 125mg Take 1 [facility] 125 mg 9-16 capsule by ity of 00:00: mouth [place] 00 after Medical meals and Branch at bedtime as needed for Gas (Per bowel prep). pantoprazol 2021-0 Yes [id number] 40mg Take 1 Univers e 40 mg EC 9-16 tablet by ity of tablet 00:00: mouth in [place] 00 the Medical morning. Branch Simethicone 2021-0 Yes [id number] 125mg Take 1 [facility] 125 mg 9-16 capsule by ity of 00:00: mouth [place] 00 after Medical meals and Branch at bedtime as needed for Gas (Per bowel prep). pantoprazol 2021-0 Yes [id number] 40mg Take 1 Univers e 40 mg EC 9-16 tablet by ity of tablet 00:00: mouth in [place] 00 the Medical morning. Branch Simethicone 2021-0 Yes [id number] 125mg Take 1 Univers 125 mg 9-16 capsule by ity of 00:00: mouth [place] 00 after Medical meals and Branch at bedtime as needed for Gas (Per bowel prep). pantoprazol 2021-0 Yes [id number] 40mg Take 1 Univers e 40 mg EC 9-16 tablet by ity of tablet 00:00: mouth in [place] 00 the Medical morning. Branch Simethicone 2021-0 Yes [id number] 125mg Take 1 Univers 125 mg 9-16 capsule by ity of 00:00: mouth [place] 00 after Medical meals and Branch at bedtime as needed for Gas (Per bowel prep). pantoprazol Yes [id number] 40mg Take 1 Univers e 40 mg EC 9-16 tablet by ity of tablet 00:00: mouth in [place] 00 the Medical morning. Branch Simethicone Yes [id number] 125mg Take 1 [facility] 125 mg 9-16 capsule by ity of 00:00: mouth [place] 00 after Medical meals and Branch at bedtime as needed for Gas (Per bowel prep). pantoprazol Yes [id number] 40mg Take 1 Univers e 40 mg EC 9-16 tablet by ity of tablet 00:00: mouth in [place] 00 the Medical morning. Branch Simethicone Yes [id number] 125mg Take 1 [facility] 125 mg 9-16 capsule by ity of 00:00: mouth [place] 00 after Medical meals and Branch at bedtime as needed for Gas (Per bowel prep). Simethicone Yes [id number] 125mg Take 1 [facility] 125 mg 9-16 capsule by ity of 00:00: mouth [place] 00 after Medical meals and Branch at bedtime as needed for Gas (Per bowel prep). Simethicone Yes [id number] 125mg Take 1 [facility] 125 mg 9-16 capsule by ity of 00:00: mouth [place] 00 after Medical meals and Branch at bedtime as needed for Gas (Per bowel prep). Simethicone 2021- No [id number] 125mg Take 1 Univers 125 mg 9-16 11-01 capsule by ity of 00:00: 00:00 mouth [place] 00 :00 after Medical meals and Branch at bedtime as needed for Gas (Per bowel prep). Simethicone 2021- No [id number] 125mg Take 1 Univers 125 mg 9-16 11-01 capsule by ity of 00:00: 00:00 mouth [place] 00 :00 after Medical meals and Branch at bedtime as needed for Gas (Per bowel prep). pantoprazol 2021- No [id number] 40mg Take 1 Univers e 40 mg EC 9-16 10-13 tablet by ity of tablet 00:00: 00:00 mouth in [place] 00 :00 the Medical morning. Branch SUMAtriptan Yes [id number] TAKE 1 [facility] 50 mg 9-06 TABLET BY ity of tablet 00:00: MOUTH [place] 00 NEEDED FOR Medical MIGRAINE Branch HEADACHE ( MAY REPEAT IN 2 HOURS ) SUMAtriptan 2022-0 Yes [id number] TAKE 1 [facility] 50 mg 9-06 TABLET BY ity of tablet 00:00: MOUTH [place] 00 NEEDED FOR Medical MIGRAINE Branch HEADACHE ( MAY REPEAT IN 2 HOURS ) SUMAtriptan 2022-0 Yes [id number] TAKE 1 [facility] 50 mg 9-06 TABLET BY ity of tablet 00:00: MOUTH [place] 00 NEEDED FOR Medical MIGRAINE Branch HEADACHE ( MAY REPEAT IN 2 HOURS ) SUMAtriptan 2022-0 Yes [id number] TAKE 1 [facility] 50 mg 9-06 TABLET BY ity of tablet 00:00: MOUTH [place] 00 NEEDED FOR Medical MIGRAINE Branch HEADACHE ( MAY REPEAT IN 2 HOURS ) SUMAtriptan 2022-0 Yes [id number] TAKE 1 [facility] 50 mg 9-06 TABLET BY ity of tablet 00:00: MOUTH [place] 00 NEEDED FOR Medical MIGRAINE Branch HEADACHE ( MAY REPEAT IN 2 HOURS ) SUMAtriptan 2022-0 Yes [id number] TAKE 1 [facility] 50 mg 9-06 TABLET BY ity of tablet 00:00: MOUTH [place] 00 NEEDED FOR Medical MIGRAINE Branch HEADACHE ( MAY REPEAT IN 2 HOURS ) SUMAtriptan 2022-0 Yes [id number] TAKE 1 [facility] 50 mg 9-06 TABLET BY ity of tablet 00:00: MOUTH [place] 00 NEEDED FOR Medical MIGRAINE Branch HEADACHE ( MAY REPEAT IN 2 HOURS ) SUMAtriptan 2022-0 Yes [id number] TAKE 1 [facility] 50 mg 9-06 TABLET BY ity of tablet 00:00: MOUTH [place] 00 NEEDED FOR Medical MIGRAINE Branch HEADACHE ( MAY REPEAT IN 2 HOURS ) SUMAtriptan 2022-0 Yes [id number] TAKE 1 [facility] 50 mg 9-06 TABLET BY ity of tablet 00:00: MOUTH [place] 00 NEEDED FOR Medical MIGRAINE Branch HEADACHE ( MAY REPEAT IN 2 HOURS ) SUMAtriptan 2022-0 Yes [id number] TAKE 1 [facility] 50 mg 9-06 TABLET BY ity of tablet 00:00: MOUTH [place] 00 NEEDED FOR Medical MIGRAINE Branch HEADACHE ( MAY REPEAT IN 2 HOURS ) SUMAtriptan 2022-0 Yes [id number] TAKE 1 [facility] 50 mg 9-06 TABLET BY ity of tablet 00:00: MOUTH [place] 00 NEEDED FOR Medical MIGRAINE Branch HEADACHE ( MAY REPEAT IN 2 HOURS ) SUMAtriptan 2021-0 Yes [id number] TAKE 1 [facility] 50 mg 9- TABLET BY ity of tablet 00:00: MOUTH [place] 00 NEEDED FOR Medical MIGRAINE Branch HEADACHE ( MAY REPEAT IN 2 HOURS ) SUMAtriptan 2021-0 2021- No [id number] TAKE 1 [facility] 50 mg 9-03 04- TABLET BY ity of tablet 00:00: 00:00 MOUTH [place] 00 :00 NEEDED FOR Medical MIGRAINE Branch HEADACHE ( MAY REPEAT IN 2 HOURS ) SUMAtriptan 2021-0 2021- No [id number] TAKE 1 [facility] 50 mg 9-03 04- TABLET BY ity of tablet 00:00: 00:00 MOUTH [place] 00 :00 NEEDED FOR Medical MIGRAINE Branch HEADACHE ( MAY REPEAT IN 2 HOURS ) SUMAtriptan 2021-0 2021- No [id number] TAKE 1 [facility] 50 mg 9-03 04- TABLET BY ity of tablet 00:00: 00:00 MOUTH [place] 00 :00 NEEDED FOR Medical MIGRAINE Branch HEADACHE ( MAY REPEAT IN 2 HOURS ) topiramate 2021-0 Yes [id number] Take 2 [facility] 25 mg 9-01 tablets by ity of tablet 00:00: mouth [place] 00 twice Medical daily Branch topiramate 2022-0 Yes [id number] Take 2 [facility] 25 mg 9-01 tablets by ity of tablet 00:00: mouth [place] 00 twice Medical daily Branch topiramate 2022-0 Yes [id number] Take 2 [facility] 25 mg 9-01 tablets by ity of tablet 00:00: mouth [place] 00 twice Medical daily Branch topiramate 2022-0 Yes [id number] Take 2 [facility] 25 mg 9-01 tablets by ity of tablet 00:00: mouth [place] 00 twice Medical daily Branch topiramate 2022-0 Yes [id number] Take 2 [facility] 25 mg 9-01 tablets by ity of tablet 00:00: mouth [place] 00 twice Medical daily Branch topiramate 2022-0 Yes [id number] Take 2 [facility] 25 mg 9-01 tablets by ity of tablet 00:00: mouth [place] 00 twice Medical daily Branch topiramate 2022-0 Yes [id number] Take 2 [facility] 25 mg 9-01 tablets by ity of tablet 00:00: mouth [place] 00 twice Medical daily Branch topiramate 2022-0 Yes [id number] Take 2 [facility] 25 mg 9-01 tablets by ity of tablet 00:00: mouth [place] 00 twice Medical daily Branch topiramate 2021-0 Yes [id number] Take 2 [facility] 25 mg 9-01 tablets by ity of tablet 00:00: mouth [place] 00 twice Medical daily Branch topiramate 2021-0 Yes [id number] Take 2 [facility] 25 mg 9-01 tablets by ity of tablet 00:00: mouth [place] 00 twice Medical daily Branch topiramate 2021-0 Yes [id number] Take 2 [facility] 25 mg 9-01 tablets by ity of tablet 00:00: mouth [place] 00 twice Medical daily Branch topiramate 2021-0 Yes [id number] Take 2 [facility] 25 mg 9-01 tablets by ity of tablet 00:00: mouth [place] 00 twice Medical daily Branch topiramate 2021-0 Yes [id number] Take 2 [facility] 25 mg 9-01 tablets by ity of tablet 00:00: mouth [place] 00 twice Medical daily Branch topiramate 2021-0 Yes [id number] Take 2 [facility] 25 mg 9-01 tablets by ity of tablet 00:00: mouth [place] 00 twice Medical daily Branch topiramate 2021-0 Yes [id number] Take 2 [facility] 25 mg 9-01 tablets by ity of tablet 00:00: mouth [place] 00 twice Medical daily Branch topiramate 2-0 2- No [id number] Take 2 [facility] 25 mg 9-01 09-22 tablets by ity of tablet 00:00: 00:00 mouth [place] 00 :00 twice Medical daily Branch topiramate 2-0 2- No [id number] Take 2 [facility] 25 mg 9-01 09-22 tablets by ity of tablet 00:00: 00:00 mouth [place] 00 :00 twice Medical daily Branch topiramate 2-0 2- No [id number] Take 2 [facility] 25 mg 9-01 09-22 tablets by ity of tablet 00:00: 00:00 mouth [place] 00 :00 twice Medical daily Branch methocarbam 2021-0 Yes [id number] 500mg Take 1 Univers oL 500 mg 8-11 tablet by ity o f tablet 00:00: mouth 4 [place] 00 (four) Medical times Branch daily as needed for Pain (scale 7-10). methocarbam 2021-0 Yes [id number] 500mg Take 1 [facility] oL 500 mg 8-11 tablet by ity o f tablet 00:00: mouth (four) Medical times Branch daily as needed for Pain (scale 7-10). methocarbam 2-0 Yes [id number] 500mg Take 1 [facility] oL 500 mg 8-11 tablet by ity o f tablet 00:00: mouth (four) Medical times Branch daily as needed for Pain (scale 7-10). methocarbam 2022-0 Yes [id number] 500mg Take 1 [facility] oL 500 mg 8-11 tablet by ity o f tablet 00:00: mouth (four) Medical times Branch daily as needed for Pain (scale 7-10). methocarbam 2022-0 Yes [id number] 500mg Take 1 [facility] oL 500 mg 8-11 tablet by ity o f tablet 00:00: mouth (four) Medical times Branch daily as needed for Pain (scale 7-10). methocarbam 2-0 Yes [id number] 500mg Take 1 [facility] oL 500 mg 8-11 tablet by ity o f tablet 00:00: mouth (four) Medical times Branch daily as needed for Pain (scale 7-10). methocarbam 2-0 Yes [id number] 500mg Take 1 [facility] oL 500 mg 8-11 tablet by ity o f tablet 00:00: mouth (four) Medical times Branch daily as needed for Pain (scale 7-10). methocarbam 2-0 Yes [id number] 500mg Take 1 [facility] oL 500 mg 8-11 tablet by ity o f tablet 00:00: mouth (four) Medical times Branch daily as needed for Pain (scale 7-10). methocarbam 2-0 Yes [id number] 500mg Take 1 [facility] oL 500 mg 8-11 tablet by ity o f tablet 00:00: mouth (four) Medical times Branch daily as needed for Pain (scale 7-10). methocarbam 2022-0 Yes [id number] 500mg Take 1 [facility] oL 500 mg 8-11 tablet by ity o f tablet 00:00: mouth (four) Medical times Branch daily as needed for Pain (scale 7-10). methocarbam 2022-0 Yes [id number] 500mg Take 1 [facility] oL 500 mg 8-11 tablet by ity o f tablet 00:00: mouth (four) Medical times Branch daily as needed for Pain (scale 7-10). methocarbam 2022-0 Yes [id number] 500mg Take 1 [facility] oL 500 mg 8-11 tablet by ity o f tablet 00:00: mouth (four) Medical times Branch daily as needed for Pain (scale 7-10). methocarbam 2022-0 Yes [id number] 500mg Take 1 [facility] oL 500 mg 8-11 tablet by ity o f tablet 00:00: mouth (four) Medical times Branch daily as needed for Pain (scale 7-10). methocarbam 2022-0 Yes [id number] 500mg Take 1 [facility] oL 500 mg 8-11 tablet by ity o f tablet 00:00: mouth (four) Medical times Branch daily as needed for Pain (scale 7-10). methocarbam 2022-0 Yes [id number] 500mg Take 1 [facility] oL 500 mg 8-11 tablet by ity o f tablet 00:00: mouth (four) Medical times Branch daily as needed for Pain (scale 7-10). methocarbam 2022-0 Yes [id number] 500mg Take 1 [facility] oL 500 mg 8-11 tablet by ity o f tablet 00:00: mouth (four) Medical times Branch daily as needed for Pain (scale 7-10). methocarbam 2022-0 Yes [id number] 500mg Take 1 [facility] oL 500 mg 8-11 tablet by ity o f tablet 00:00: mouth (four) Medical times Branch daily as needed for Pain (scale 7-10). methocarbam 2022-0 Yes [id number] 500mg Take 1 [facility] oL 500 mg 8-11 tablet by ity o f tablet 00:00: mouth (four) Medical times Branch daily as needed for Pain (scale 7-10). methocarbam 2022-0 Yes [id number] 500mg Take 1 [facility] oL 500 mg 8-11 tablet by ity o f tablet 00:00: mouth (four) Medical times Branch daily as needed for Pain (scale 7-10). methocarbam 2022-0 Yes [id number] 500mg Take 1 [facility] oL 500 mg 8-11 tablet by ity o f tablet 00:00: mouth (four) Medical times Branch daily as needed for Pain (scale 7-10). methocarbam 2022-0 Yes [id number] 500mg Take 1 [facility] 500 mg 8-11 tablet by [facility] tablet 00:00: mouth (four) Medical times Branch daily as needed for Pain (scale 7-10). methocarbam 2022-0 Yes [id number] 500mg Take 1 [facility] 500 mg 8-11 tablet by [facility] tablet 00:00: mouth (four) Medical times Branch daily as needed for Pain (scale 7-10). methocarbam 2-0 Yes [id number] 500mg Take 1 [facility] 500 mg 8-11 tablet by [facility] tablet 00:00: mouth (four) Medical times Branch daily as needed for Pain (scale 7-10). methocarbam 2-0 Yes [id number] 500mg Take 1 [facility] o[facility] 500 mg 8-11 tablet by [facility] tablet 00:00: mouth (four) Medical times Branch daily as needed for Pain (scale 7-10). methocarbam 2-0 Yes [id number] 500mg Take 1 [facility] o[facility] 500 mg 8-11 tablet by [facility] tablet 00:00: mouth (four) Medical times Branch daily as needed for Pain (scale 7-10). methocarbam 2-0 Yes [id number] 500mg Take 1 [facility] 500 mg 8-11 tablet by [facility] tablet 00:00: mouth (four) Medical times Branch daily as needed for Pain (scale 7-10). methocarbam 2-0 Yes [id number] 500mg Take 1 [facility] 500 mg 8-11 tablet by [facility] tablet 00:00: mouth (four) Medical times Branch daily as needed for Pain (scale 7-10). methocarbam 2022-0 Yes [id number] 500mg Take 1 [facility] o[facility] 500 mg 8-11 tablet by [facility] tablet 00:00: mouth (four) Medical times Branch daily as needed for Pain (scale 7-10). methocarbam 2022-0 Yes [id number] 500mg Take 1 [facility] o[facility] 500 mg 8-11 tablet by [facility] tablet 00:00: mouth (four) Medical times Branch daily as needed for Pain (scale 7-10). methocarbam 2022-0 Yes [id number] 500mg Take 1 [facility] 500 mg 8-11 tablet by [facility] tablet 00:00: mouth (four) Medical times Branch daily as needed for Pain (scale 7-10). methocarbam 2022-0 Yes [id number] 500mg Take 1 [facility] 500 mg 8-11 tablet by [facility] tablet 00:00: mouth (four) Medical times Branch daily as needed for Pain (scale 7-10). methocarbam 2022-0 Yes [id number] 500mg Take 1 [facility] 500 mg 8-11 tablet by [facility] tablet 00:00: mouth (four) Medical times Branch daily as needed for Pain (scale 7-10). methocarbam 2022-0 Yes [id number] 500mg Take 1 [facility] 500 mg 8-11 tablet by [facility] tablet 00:00: mouth (four) Medical times Branch daily as needed for Pain (scale 7-10). methocarbam 2022-0 Yes [id number] 500mg Take 1 [facility] 500 mg 8-11 tablet by [facility] tablet 00:00: mouth (four) Medical times Branch daily as needed for Pain (scale 7-10). methocarbam 2022-0 Yes [id number] 500mg Take 1 [facility] 500 mg 8-11 tablet by [facility] tablet 00:00: mouth (four) Medical times [facility] daily as needed for Pain (scale 7-10). methocarbam 2022-0 Yes [id number] 500mg Take 1 [facility] 500 mg 8-11 tablet by [facility] tablet 00:00: mouth (four) Medical times Branch daily as needed for Pain (scale 7-10). methocarbam 2022-0 Yes [id number] 500mg Take 1 [facility] 500 mg 8-11 tablet by [facility] tablet 00:00: mouth (four) Medical times Branch daily as needed for Pain (scale 7-10). methocarbam 2022-0 Yes [id number] 500mg Take 1 [facility] 500 mg 8-11 tablet by [facility] tablet 00:00: mouth (four) Medical times Branch daily as needed for Pain (scale 7-10). methocarbam 2022-0 Yes [id number] 500mg Take 1 [facility] 500 mg 8-11 tablet by [facility] tablet 00:00: mouth (four) Medical times Branch daily as needed for Pain (scale 7-10). methocarbam 2022-0 Yes [id number] 500mg Take 1 [facility] 500 mg 8-11 tablet by [facility] tablet 00:00: mouth (four) Medical times Branch daily as needed for Pain (scale 7-10). methocarbam 2022-0 Yes [id number] 500mg Take 1 [facility] 500 mg 8-11 tablet by [facility] tablet 00:00: mouth (four) Medical times Branch daily as needed for Pain (scale 7-10). methocarbam 2022-0 Yes [id number] 500mg Take 1 [facility] 500 mg 8-11 tablet by [facility] tablet 00:00: mouth (four) Medical times Branch daily as needed for Pain (scale 7-10). methocarbam 2022-0 Yes [id number] 500mg Take 1 [facility] 500 mg 8-11 tablet by [facility] tablet 00:00: mouth (four) Medical times Branch daily as needed for Pain (scale 7-10). methocarbam 2022-0 Yes [id number] 500mg Take 1 [facility] 500 mg 8-11 tablet by [facility] tablet 00:00: mouth (four) Medical times Branch daily as needed for Pain (scale 7-10). methocarbam 2022-0 Yes [id number] 500mg Take 1 [facility] 500 mg 8-11 tablet by [facility] tablet 00:00: mouth (four) Medical times [facility] daily as needed for Pain (scale 7-10). methocarbam 2022-0 Yes [id number] 500mg Take 1 [facility] 500 mg 8-11 tablet by [facility] tablet 00:00: mouth (four) Medical times Branch daily as needed for Pain (scale 7-10). methocarbam 2022-0 Yes [id number] 500mg Take 1 [facility] 500 mg 8-11 tablet by [facility] tablet 00:00: mouth (four) Medical times Branch daily as needed for Pain (scale 7-10). methocarbam 2022-0 Yes [id number] 500mg Take 1 [facility] 500 mg 8-11 tablet by [facility] tablet 00:00: mouth (four) Medical times Branch daily as needed for Pain (scale 7-10). methocarbam 2022-0 Yes [id number] 500mg Take 1 [facility] 500 mg 8-11 tablet by [facility] tablet 00:00: mouth (four) Medical times Branch daily as needed for Pain (scale 7-10). methocarbam 2022-0 Yes [id number] 500mg Take 1 [facility] 500 mg 8-11 tablet by [facility] tablet 00:00: mouth (four) Medical times Branch daily as needed for Pain (scale 7-10). methocarbam 2022-0 Yes [id number] 500mg Take 1 [facility] 500 mg 8-11 tablet by [facility] tablet 00:00: mouth (four) Medical times Branch daily as needed for Pain (scale 7-10). methocarbam 2022-0 Yes [id number] 500mg Take 1 [facility] 500 mg 8-11 tablet by [facility] tablet 00:00: mouth (four) Medical times Branch daily as needed for Pain (scale 7-10). methocarbam 2022-0 Yes [id number] 500mg Take 1 [facility] 500 mg 8-11 tablet by [facility] tablet 00:00: mouth (four) Medical times Branch daily as needed for Pain (scale 7-10). methocarbam 2022-0 Yes [id number] 500mg Take 1 [facility] 500 mg 8-11 tablet by [facility] tablet 00:00: mouth (four) Medical times Branch daily as needed for Pain (scale 7-10). methocarbam 2022-0 Yes [id number] 500mg Take 1 [facility] 500 mg 8-11 tablet by [facility] tablet 00:00: mouth (four) Medical times Branch daily as needed for Pain (scale 7-10). methocarbam 2022-0 Yes [id number] 500mg Take 1 [facility] 500 mg 8-11 tablet by [facility] tablet 00:00: mouth (four) Medical times Branch daily as needed for Pain (scale 7-10). methocarbam 2021-0 Yes [id number] 500mg Take 1 [facility] 500 mg 8-11 tablet by [facility] tablet 00:00: mouth 00 (four) Medical times Branch daily as needed for Pain (scale 7-10). methocarbam 2021-0 Yes [id number] 500mg Take 1 [facility] 500 mg 8-11 tablet by [facility] tablet 00:00: mouth 00 (four) Medical times Branch daily as needed for Pain (scale 7-10). methocarbam 0 Yes [id number] 500mg Take 1 [facility] o[facility] 500 mg 8-11 tablet by [facility] tablet 00:00: mouth 00 (four) Medical times Branch daily as needed for Pain (scale 7-10). methocarbam 2021-0 Yes [id number] 500mg Take 1 [facility] 500 mg 8-11 tablet by [facility] tablet 00:00: mouth 00 (four) Medical times Branch daily as needed for Pain (scale 7-10). methocarbam 2022- No [id number] 500mg Take 1 [facility] o[facility] 500 mg 8-11 01-24 tablet by [facility] tablet 00:00: 00:00 mouth 4 00 :00 (four) Medical times Branch daily as needed for Pain (scale 7-10). methocarbam 2021-0 3- No [id number] 500mg Take 1 [facility] o[facility] 500 mg 8-11 -24 tablet by [facility] tablet 00:00: 00:00 mouth 4 00 :00 (four) Medical times Branch daily as needed for Pain (scale 7-10). methocarbam 0 3- No [id number] 500mg Take 1 [facility] o[facility] 500 mg 8-11 01-24 tablet by [facility] tablet 00:00: 00:00 mouth 4 [place] 00 :00 (four) Medical times Branch daily as needed for Pain (scale 7-10). LOSARTAN 50 2021-0 Yes [id number] Take 1 [facility] mg tablet 7-20 tablet by [facility] o f 00:00: mouth [place] 00 twice Medical daily Branch DILTIAZEM 2021-0 Yes [id number] Take 1 [facility] 120 mg 24 7-20 capsule by [facility] capsule 00:00: mouth [place] 00 twice Medical daily Branch LOSARTAN 50 2021-0 Yes [id number] Take 1 [facility] mg tablet 7-20 tablet by [facility] o f 00:00: mouth twice Medical daily Branch DILTIAZEM 2021-0 Yes [id number] Take 1 [facility] [place] 120 mg 24 7-20 capsule by [facility] capsule 00:00: mouth twice Medical daily Branch LOSARTAN 50 2021-0 Yes [id number] Take 1 [facility] mg tablet 7-20 tablet by [facility] o f 00:00: mouth twice Medical daily Branch DILTIAZEM 2021-0 Yes [id number] Take 1 [facility] [place] 120 mg 24 7-20 capsule by [facility] capsule 00:00: mouth twice Medical daily Branch LOSARTAN 50 2021-0 Yes [id number] Take 1 [facility] mg tablet 7-20 tablet by [facility] o f 00:00: mouth twice Medical daily Branch DILTIAZEM 2021-0 Yes [id number] Take 1 [facility] 120 mg 24 7-20 capsule by [facility] capsule 00:00: mouth twice Medical daily Branch LOSARTAN 50 2021-0 Yes [id number] Take 1 [facility] mg tablet 7-20 tablet by [facility] o f 00:00: mouth twice Medical daily Branch DILTIAZEM 2021-0 Yes [id number] Take 1 [facility] [place] 120 mg 24 7-20 capsule by [facility] capsule 00:00: mouth twice Medical daily Branch LOSARTAN 50 2021-0 Yes [id number] Take 1 [facility] mg tablet 7-20 tablet by [facility] o f 00:00: mouth twice Medical daily Branch DILTIAZEM 2021-0 Yes [id number] Take 1 [facility] [place] 120 mg 24 7-20 capsule by [facility] capsule 00:00: mouth twice Medical daily Branch LOSARTAN 50 2021-0 Yes [id number] Take 1 [facility] mg tablet 7-20 tablet by [facility] o f 00:00: mouth twice Medical daily Branch DILTIAZEM 2021-0 Yes [id number] Take 1 [facility] [place] 120 mg 24 7-20 capsule by [facility] capsule 00:00: mouth twice Medical daily Branch LOSARTAN 50 2021-0 Yes [id number] Take 1 [facility] mg tablet 7-20 tablet by [facility] o f 00:00: mouth twice Medical daily Branch DILTIAZEM 2022-0 Yes [id number] Take 1 [facility] [place] 120 mg 24 7-20 capsule by [facility] capsule 00:00: mouth twice Medical daily Branch LOSARTAN 50 2021-0 Yes [id number] Take 1 [facility] mg tablet 7-20 tablet by [facility] o f 00:00: mouth twice Medical daily Branch DILTIAZEM 2021-0 Yes [id number] Take 1 [facility] [place] 120 mg 24 7-20 capsule by [facility] capsule 00:00: mouth twice Medical daily Branch LOSARTAN 50 2021-0 Yes [id number] Take 1 [facility] mg tablet 7-20 tablet by [facility] o f 00:00: mouth twice Medical daily Branch DILTIAZEM 2021-0 Yes [id number] Take 1 [facility] [place] 120 mg 24 7-20 capsule by [facility] capsule 00:00: mouth twice Medical daily Branch LOSARTAN 50 2021-0 Yes [id number] Take 1 [facility] mg tablet 7-20 tablet by [facility] o f 00:00: mouth twice Medical daily Branch DILTIAZEM 2021-0 Yes [id number] Take 1 [facility] [place] 120 mg 24 7-20 capsule by [facility] capsule 00:00: mouth twice Medical daily Branch LOSARTAN 50 2021-0 Yes [id number] Take 1 [facility] mg tablet 7-20 tablet by [facility] o f 00:00: mouth twice Medical daily Branch DILTIAZEM 2021-0 Yes [id number] Take 1 [facility] [place] 120 mg 24 7-20 capsule by [facility] capsule 00:00: mouth twice Medical daily Branch LOSARTAN 50 2021-0 Yes [id number] Take 1 [facility] mg tablet 7-20 tablet by [facility] o f 00:00: mouth twice Medical daily Branch DILTIAZEM 2021-0 Yes [id number] Take 1 [facility] [place] 120 mg 24 7-20 capsule by [facility] hr capsule 00:00: mouth twice Medical daily Branch LOSARTAN 50 2021-0 Yes [id number] Take 1 [facility] mg tablet 7-20 tablet by [facility] o f 00:00: mouth twice Medical daily Branch DILTIAZEM 2021-0 Yes [id number] Take 1 [facility] [place] 120 mg 24 7-20 capsule by [facility] hr capsule 00:00: mouth twice Medical daily Branch LOSARTAN 50 2021-0 Yes [id number] Take 1 [facility] mg tablet 7-20 tablet by [facility] o f 00:00: mouth twice Medical daily Branch DILTIAZEM 2-0 Yes [id number] Take 1 [facility] [place] 120 mg 24 7-20 capsule by [facility] capsule 00:00: mouth twice Medical daily Branch LOSARTAN 50 2021-0 Yes [id number] Take 1 [facility] mg tablet 7-20 tablet by [facility] o f 00:00: mouth twice Medical daily Branch DILTIAZEM 2021-0 Yes [id number] Take 1 [facility] [place] 120 mg 24 7-20 capsule by [facility] capsule 00:00: mouth twice Medical daily Branch LOSARTAN 50 2021-0 Yes [id number] Take 1 [facility] mg tablet 7-20 tablet by [facility] o f 00:00: mouth twice Medical daily Branch DILTIAZEM 2021-0 Yes [id number] Take 1 [facility] [place] 120 mg 24 7-20 capsule by [facility] capsule 00:00: mouth twice Medical daily Branch LOSARTAN 50 2021-0 Yes [id number] Take 1 [facility] mg tablet 7-20 tablet by [facility] o f 00:00: mouth twice Medical daily Branch DILTIAZEM 2021-0 Yes [id number] Take 1 [facility] [place] 120 mg 24 7-20 capsule by [facility] capsule 00:00: mouth twice Medical daily Branch LOSARTAN 50 2021-0 Yes [id number] Take 1 [facility] mg tablet 7-20 tablet by [facility] o f 00:00: mouth twice Medical daily Branch DILTIAZEM 2021-0 Yes [id number] Take 1 [facility] [place] 120 mg 24 7-20 capsule by [facility] capsule 00:00: mouth twice Medical daily Branch LOSARTAN 50 2-0 Yes [id number] Take 1 [facility] mg tablet 7-20 tablet by [facility] o f 00:00: mouth twice Medical daily Branch DILTIAZEM 2-0 Yes [id number] Take 1 [facility] [place] 120 mg 24 7-20 capsule by [facility] capsule 00:00: mouth twice Medical daily Branch LOSARTAN 50 2021-0 Yes [id number] Take 1 [facility] mg tablet 7-20 tablet by [facility] o f 00:00: mouth twice Medical daily Branch DILTIAZEM 2021-0 Yes [id number] Take 1 [facility] [place] 120 mg 24 7-20 capsule by [facility] capsule 00:00: mouth twice Medical daily Branch LOSARTAN 50 2021-0 Yes [id number] Take 1 [facility] mg tablet 7-20 tablet by [facility] o f 00:00: mouth twice Medical daily Branch DILTIAZEM 2021-0 Yes [id number] Take 1 [facility] [place] 120 mg 24 7-20 capsule by [facility] capsule 00:00: mouth twice Medical daily Branch LOSARTAN 50 2021-0 Yes [id number] Take 1 [facility] mg tablet 7-20 tablet by [facility] o f 00:00: mouth twice Medical daily Branch DILTIAZEM 2021-0 Yes [id number] Take 1 [facility] 120 mg 24 7-20 capsule by [facility] capsule 00:00: mouth twice Medical daily Branch LOSARTAN 50 2021-0 Yes [id number] Take 1 [facility] mg tablet 7-20 tablet by [facility] o f 00:00: mouth twice Medical daily Branch DILTIAZEM 2021-0 Yes [id number] Take 1 [facility] [place] 120 mg 24 7-20 capsule by [facility] capsule 00:00: mouth twice Medical daily Branch LOSARTAN 50 2021-0 Yes [id number] Take 1 [facility] mg tablet 7-20 tablet by [facility] o f 00:00: mouth twice Medical daily Branch DILTIAZEM 2021-0 Yes [id number] Take 1 [facility] [place] 120 mg 24 7-20 capsule by [facility] capsule 00:00: mouth twice Medical daily Branch LOSARTAN 50 2021-0 Yes [id number] Take 1 [facility] mg tablet 7-20 tablet by [facility] o f 00:00: mouth twice Medical daily Branch DILTIAZEM 2021-0 Yes [id number] Take 1 [facility] 120 mg 24 7-20 capsule by [facility] capsule 00:00: mouth twice Medical daily Branch LOSARTAN 50 2021-0 Yes [id number] Take 1 [facility] mg tablet 7-20 tablet by [facility] o f 00:00: mouth twice Medical daily Branch DILTIAZEM 2021-0 Yes [id number] Take 1 [facility] [place] 120 mg 24 7-20 capsule by [facility] capsule 00:00: twice Medical daily Branch LOSARTAN 50 2021-0 Yes [id number] Take 1 [facility] mg tablet 7-20 tablet by [facility] o f 00:00: mouth twice Medical daily Branch DILTIAZEM 2021-0 Yes [id number] Take 1 [facility] [place] 120 mg 24 7-20 capsule by [facility] hr capsule 00:00: mouth twice Medical daily Branch LOSARTAN 50 2021-0 Yes [id number] Take 1 [facility] mg tablet 7-20 tablet by [facility] o f 00:00: mouth twice Medical daily Branch DILTIAZEM 2021-0 Yes [id number] Take 1 [facility] [place] 120 mg 24 7-20 capsule by [facility] hr capsule 00:00: mouth twice Medical daily Branch LOSARTAN 50 2021-0 Yes [id number] Take 1 [facility] mg tablet 7-20 tablet by [facility] o f 00:00: mouth twice Medical daily Branch DILTIAZEM 2021-0 Yes [id number] Take 1 [facility] [place] 120 mg 24 7-20 capsule by [facility] hr capsule 00:00: mouth twice Medical daily Branch LOSARTAN 50 2021-0 Yes [id number] Take 1 [facility] mg tablet 7-20 tablet by [facility] o f 00:00: mouth twice Medical daily Branch DILTIAZEM 2021-0 Yes [id number] Take 1 [facility] [place] 120 mg 24 7-20 capsule by [facility] hr capsule 00:00: mouth twice Medical daily Branch LOSARTAN 50 2021-0 Yes [id number] Take 1 [facility] mg tablet 7-20 tablet by [facility] o f 00:00: mouth twice Medical daily Branch DILTIAZEM 2021-0 Yes [id number] Take 1 [facility] [place] 120 mg 24 7-20 capsule by [facility] hr capsule 00:00: mouth twice Medical daily Branch LOSARTAN 50 2021-0 2021- No [id number] Take 1 [facility] mg tablet 7-20 10-13 tablet by [facility] of 00:00: 00:00 mouth [place] 00 :00 twice Medical daily Branch DILTIAZEM 2021-0 2021- No [id number] Take 1 [facility] 120 mg 24 7-20 10-13 capsule by [facility] hr capsule 00:00: 00:00 mouth [place] 00 :00 twice Medical daily Branch methocarbam 2021-0 Yes [id number] 500mg Take 1 [facility] oL 500 mg 7-02 tablet by [facility] o f tablet 00:00: mouth (four) Medical times Branch daily. methocarbam 2022-0 Yes [id number] 500mg Take 1 [facility] oL 500 mg 7-02 tablet by [facility] o f tablet 00:00: mouth 4 [place] 00 (four) Medical times Branch daily. methocarbam 2-0 Yes [id number] 500mg Take 1 [facility] oL 500 mg 7-02 tablet by [facility] o f tablet 00:00: mouth 4 [place] 00 (four) Medical times Branch daily. methocarbam 2-0 Yes [id number] 500mg Take 1 [facility] oL 500 mg 7-02 tablet by [facility] o f tablet 00:00: mouth 4 [place] 00 (four) Medical times Branch daily. methocarbam 2021-0 Yes [id number] 500mg Take 1 [facility] oL 500 mg 7-02 tablet by [facility] o f tablet 00:00: mouth 4 [place] 00 (four) Medical times Branch daily. methocarbam 2021-0 2022- No [id number] 500mg Take 1 [facility] oL 500 mg 7-02 08-11 tablet by [facility] tablet 00:00: 00:00 mouth 4 [place] 00 :00 (four) Medical times Branch daily. SUMATRIPTAN 2-0 Yes [id number] TAKE 1 [facility] 50 mg 6-17 TABLET BY [facility] tablet 00:00: MOUTH [place] 00 NEEDED FOR Medical MIGRAINE Branch HEADACHE (MAY REPEAT IN TWO HOURS) SUMATRIPTAN 2022-0 Yes [id number] TAKE 1 [facility] 50 mg 6-17 TABLET BY [facility] tablet 00:00: MOUTH [place] 00 NEEDED FOR Medical MIGRAINE Branch HEADACHE (MAY REPEAT IN TWO HOURS) SUMATRIPTAN 2022-0 Yes [id number] TAKE 1 [facility] 50 mg 6-17 TABLET BY [facility] tablet 00:00: MOUTH [place] 00 NEEDED FOR Medical MIGRAINE Branch HEADACHE (MAY REPEAT IN TWO HOURS) SUMATRIPTAN 2-0 Yes [id number] TAKE 1 [facility] 50 mg 6-17 TABLET BY [facility] tablet 00:00: MOUTH [place] 00 NEEDED FOR Medical MIGRAINE Branch HEADACHE (MAY REPEAT IN TWO HOURS) SUMATRIPTAN 2022-0 Yes [id number] TAKE 1 [facility] 50 mg 6-17 TABLET BY [facility] tablet 00:00: MOUTH [place] 00 NEEDED FOR Medical MIGRAINE Branch HEADACHE (MAY REPEAT IN TWO HOURS) SUMATRIPTAN 2022-0 Yes [id number] TAKE 1 [facility] 50 mg 6-17 TABLET BY [facility] tablet 00:00: MOUTH [place] 00 NEEDED FOR Medical MIGRAINE Branch HEADACHE (MAY REPEAT IN TWO HOURS) SUMATRIPTAN 2022-0 Yes [id number] TAKE 1 [facility] 50 mg 6-17 TABLET BY [facility] tablet 00:00: MOUTH [place] 00 NEEDED FOR Medical MIGRAINE Branch HEADACHE (MAY REPEAT IN TWO HOURS) SUMATRIPTAN 2022-0 Yes [id number] TAKE 1 [facility] 50 mg 6-17 TABLET BY [facility] tablet 00:00: MOUTH [place] 00 NEEDED FOR Medical MIGRAINE Branch HEADACHE (MAY REPEAT IN TWO HOURS) SUMATRIPTAN 2022-0 Yes [id number] TAKE 1 [facility] 50 mg 6-17 TABLET BY [facility] tablet 00:00: MOUTH [place] 00 NEEDED FOR Medical MIGRAINE Branch HEADACHE (MAY REPEAT IN TWO HOURS) SUMATRIPTAN 2022-0 Yes [id number] TAKE 1 [facility] 50 mg 6-17 TABLET BY [facility] tablet 00:00: MOUTH [place] 00 NEEDED FOR Medical MIGRAINE Branch HEADACHE (MAY REPEAT IN TWO HOURS) SUMATRIPTAN 2022-0 Yes [id number] TAKE 1 [facility] 50 mg 6-17 TABLET BY [facility] tablet 00:00: MOUTH [place] 00 NEEDED FOR Medical MIGRAINE Branch HEADACHE (MAY REPEAT IN TWO HOURS) SUMATRIPTAN 2022-0 Yes [id number] TAKE 1 [facility] 50 mg 6-17 TABLET BY [facility] tablet 00:00: MOUTH [place] 00 NEEDED FOR Medical MIGRAINE Branch HEADACHE (MAY REPEAT IN TWO HOURS) SUMATRIPTAN 2022-0 Yes [id number] TAKE 1 [facility] 50 mg 6-17 TABLET BY [facility] tablet 00:00: MOUTH [place] 00 NEEDED FOR Medical MIGRAINE Branch HEADACHE (MAY REPEAT IN TWO HOURS) SUMATRIPTAN 2022-0 Yes [id number] TAKE 1 [facility] 50 mg 6-17 TABLET BY [facility] tablet 00:00: MOUTH [place] 00 NEEDED FOR Medical MIGRAINE Branch HEADACHE (MAY REPEAT IN TWO HOURS) SUMATRIPTAN 2022-0 Yes [id number] TAKE 1 [facility] 50 mg 6-17 TABLET BY [facility] tablet 00:00: MOUTH [place] 00 NEEDED FOR Medical MIGRAINE Branch HEADACHE (MAY REPEAT IN TWO HOURS) SUMATRIPTAN 2022-0 Yes [id number] TAKE 1 [facility] 50 mg 6-17 TABLET BY [facility] tablet 00:00: MOUTH [place] 00 NEEDED FOR Medical MIGRAINE Branch HEADACHE (MAY REPEAT IN TWO HOURS) SUMATRIPTAN 2022-0 Yes [id number] TAKE 1 [facility] 50 mg 6-17 TABLET BY [facility] tablet 00:00: MOUTH [place] 00 NEEDED FOR Medical MIGRAINE Branch HEADACHE (MAY REPEAT IN TWO HOURS) SUMATRIPTAN 0 2021- No [id number] TAKE 1 [facility] 50 mg 6-17 09-06 TABLET BY [facility] tablet 00:00: 00:00 MOUTH [place] 00 :00 NEEDED FOR Medical MIGRAINE Branch HEADACHE (MAY REPEAT IN TWO HOURS) SUMATRIPTAN 0 2021- No [id number] TAKE 1 [facility] 50 mg 6-17 09-06 TABLET BY [facility] tablet 00:00: 00:00 MOUTH [place] 00 :00 NEEDED FOR Medical MIGRAINE Branch HEADACHE (MAY REPEAT IN TWO HOURS) fexofenadin Yes [id number] 180mg Take 1 [facility] e (LUIS 6-13 tablet by [facility] of ALLERGY) 00:00: mouth [place] 180 mg 00 daily. Medical tablet Branch fexofenadin Yes [id number] 180mg Take 1 [facility] e (LUIS 6-13 tablet by [facility] of ALLERGY) 00:00: mouth [place] 180 mg 00 daily. Medical tablet Branch fexofenadin Yes [id number] 180mg Take 1 [facility] e (LUIS 6-13 tablet by [facility] of ALLERGY) 00:00: mouth [place] 180 mg 00 daily. Medical tablet Branch fexofenadin Yes [id number] 180mg Take 1 [facility] e (LUIS 6-13 tablet by [facility] of ALLERGY) 00:00: mouth [place] 180 mg 00 daily. Medical tablet Branch fexofenadin Yes [id number] 180mg Take 1 [facility] e (LUIS 6-13 tablet by [facility] of ALLERGY) 00:00: mouth [place] 180 mg 00 daily. Medical tablet Branch fexofenadin Yes [id number] 180mg Take 1 [facility] e (LUIS 6-13 tablet by [facility] of ALLERGY) 00:00: mouth [place] 180 mg 00 daily. Medical tablet Branch fexofenadin Yes [id number] 180mg Take 1 [facility] e (LUIS 6-13 tablet by [facility] of ALLERGY) 00:00: mouth [place] 180 mg 00 daily. Medical tablet Branch fexofenadin 2022-0 Yes [id number] 180mg Take 1 [facility] e (LUIS 6-13 tablet by [facility] of ALLERGY) 00:00: mouth [place] 180 mg 00 daily. Medical tablet Branch fexofenadin 0 Yes [id number] 180mg Take 1 [facility] e (LUIS 6-13 tablet by [facility] of ALLERGY) 00:00: mouth [place] 180 mg 00 daily. Medical tablet Branch fexofenadin 0 Yes [id number] 180mg Take 1 [facility] e (LUIS 6-13 tablet by [facility] of ALLERGY) 00:00: mouth [place] 180 mg 00 daily. Medical tablet Branch fexofenadin Yes [id number] 180mg Take 1 [facility] e (LUIS 6-13 tablet by [facility] of ALLERGY) 00:00: mouth [place] 180 mg 00 daily. Medical tablet Branch fexofenadin Yes [id number] 180mg Take 1 [facility] e (LUIS 6-13 tablet by [facility] of ALLERGY) 00:00: mouth [place] 180 mg 00 daily. Medical tablet Branch fexofenadin Yes [id number] 180mg Take 1 [facility] e (LUIS 6-13 tablet by [facility] of ALLERGY) 00:00: mouth [place] 180 mg 00 daily. Medical tablet Branch fexofenadin Yes [id number] 180mg Take 1 [facility] e (LUIS 6-13 tablet by [facility] of ALLERGY) 00:00: mouth [place] 180 mg 00 daily. Medical tablet Branch fexofenadin Yes [id number] 180mg Take 1 [facility] e (LUIS 6-13 tablet by [facility] of ALLERGY) 00:00: mouth [place] 180 mg 00 daily. Medical tablet Branch fexofenadin 0 Yes [id number] 180mg Take 1 [facility] e (LUIS 6-13 tablet by [facility] of ALLERGY) 00:00: mouth [place] 180 mg 00 daily. Medical tablet Branch fexofenadin 2021-0 Yes [id number] 180mg Take 1 [facility] e (LUIS 6-13 tablet by [facility] of ALLERGY) 00:00: mouth [place] 180 mg 00 daily. Medical tablet Branch fexofenadin Yes [id number] 180mg Take 1 [facility] e (LUIS 6-13 tablet by [facility] of ALLERGY) 00:00: mouth [place] 180 mg 00 daily. Medical tablet Branch fexofenadin 2022-0 Yes [id number] 180mg Take 1 [facility] e (LUIS 6-13 tablet by [facility] of ALLERGY) 00:00: mouth [place] 180 mg 00 daily. Medical tablet Branch fexofenadin 0 Yes [id number] 180mg Take 1 [facility] e (LUIS 6-13 tablet by [facility] of ALLERGY) 00:00: mouth [place] 180 mg 00 daily. Medical tablet Branch fexofenadin 2021-0 Yes [id number] 180mg Take 1 [facility] e (LUIS 6-13 tablet by [facility] of ALLERGY) 00:00: mouth [place] 180 mg 00 daily. Medical tablet Branch fexofenadin 0 Yes [id number] 180mg Take 1 [facility] e (LUIS 6-13 tablet by [facility] of ALLERGY) 00:00: mouth [place] 180 mg 00 daily. Medical tablet Branch fexofenadin Yes [id number] 180mg Take 1 [facility] e (LUIS 6-13 tablet by [facility] of ALLERGY) 00:00: mouth [place] 180 mg 00 daily. Medical tablet Branch fexofenadin Yes [id number] 180mg Take 1 [facility] e (LUIS 6-13 tablet by [facility] of ALLERGY) 00:00: mouth [place] 180 mg 00 daily. Medical tablet Branch fexofenadin 0 Yes [id number] 180mg Take 1 [facility] e (LUIS 6-13 tablet by [facility] of ALLERGY) 00:00: mouth [place] 180 mg 00 daily. Medical tablet Branch fexofenadin 0 Yes [id number] 180mg Take 1 [facility] e (LUIS 6-13 tablet by [facility] of ALLERGY) 00:00: mouth [place] 180 mg 00 daily. Medical tablet Branch fexofenadin 2021-0 Yes [id number] 180mg Take 1 [facility] e (LUIS 6-13 tablet by [facility] of ALLERGY) 00:00: mouth [place] 180 mg 00 daily. Medical tablet Branch fexofenadin 2021-0 Yes [id number] 180mg Take 1 Univers e (LUIS 6-13 tablet by ity of ALLERGY) 00:00: mouth [place] 180 mg 00 daily. Medical tablet Branch fexofenadin 2021-0 Yes [id number] 180mg Take 1 [facility] e (LUIS 6-13 tablet by ity of ALLERGY) 00:00: mouth [place] 180 mg 00 daily. Medical tablet Branch fexofenadin Yes [id number] 180mg Take 1 [facility] e (LUIS 6-13 tablet by ity of ALLERGY) 00:00: mouth [place] 180 mg 00 daily. Medical tablet Branch fexofenadin Yes [id number] 180mg Take 1 [facility] e (LUIS 6-13 tablet by ity of ALLERGY) 00:00: mouth [place] 180 mg 00 daily. Medical tablet Branch fexofenadin Yes [id number] 180mg Take 1 [facility] e (LUIS 6-13 tablet by ity of ALLERGY) 00:00: mouth [place] 180 mg 00 daily. Medical tablet Branch fexofenadin Yes [id number] 180mg Take 1 [facility] e (LUIS 6-13 tablet by ity of ALLERGY) 00:00: mouth [place] 180 mg 00 daily. Medical tablet Branch fexofenadin Yes [id number] 180mg Take 1 [facility] e (LUIS 6-13 tablet by ity of ALLERGY) 00:00: mouth [place] 180 mg 00 daily. Medical tablet Branch fexofenadin Yes [id number] 180mg Take 1 [facility] e (LUIS 6-13 tablet by ity of ALLERGY) 00:00: mouth [place] 180 mg 00 daily. Medical tablet Branch fexofenadin Yes [id number] 180mg Take 1 [facility] e (LUIS 6-13 tablet by ity of ALLERGY) 00:00: mouth [place] 180 mg 00 daily. Medical tablet Branch fexofenadin Yes [id number] 180mg Take 1 [facility] e (LUIS 6-13 tablet by ity of ALLERGY) 00:00: mouth [place] 180 mg 00 daily. Medical tablet Branch fexofenadin Yes [id number] 180mg Take 1 [facility] e (LUIS 6-13 tablet by ity of ALLERGY) 00:00: mouth [place] 180 mg 00 daily. Medical tablet Branch fexofenadin Yes [id number] 180mg Take 1 [facility] e (LUIS 6-13 tablet by ity of ALLERGY) 00:00: mouth [place] 180 mg 00 daily. Medical tablet Branch fexofenadin Yes [id number] 180mg Take 1 [facility] e (LUIS 6-13 tablet by ity of ALLERGY) 00:00: mouth [place] 180 mg 00 daily. Medical tablet Branch fexofenadin 2021-0 Yes [id number] 180mg Take 1 [facility] e (LUIS 6-13 tablet by ity of ALLERGY) 00:00: mouth [place] 180 mg 00 daily. Medical tablet Branch fexofenadin 0 Yes [id number] 180mg Take 1 [facility] e (LUIS 6-13 tablet by ity of ALLERGY) 00:00: mouth [place] 180 mg 00 daily. Medical tablet Branch fexofenadin 0 Yes [id number] 180mg Take 1 [facility] e (LUIS 6-13 tablet by ity of ALLERGY) 00:00: mouth [place] 180 mg 00 daily. Medical tablet Branch fexofenadin Yes [id number] 180mg Take 1 [facility] e (LUIS 6-13 tablet by ity of ALLERGY) 00:00: mouth [place] 180 mg 00 daily. Medical tablet Branch fexofenadin Yes [id number] 180mg Take 1 [facility] e (LUIS 6-13 tablet by ity of ALLERGY) 00:00: mouth [place] 180 mg 00 daily. Medical tablet Branch fexofenadin Yes [id number] 180mg Take 1 [facility] e (LUIS 6-13 tablet by ity of ALLERGY) 00:00: mouth [place] 180 mg 00 daily. Medical tablet Branch fexofenadin 0 Yes [id number] 180mg Take 1 [facility] e (LUIS 6-13 tablet by ity of ALLERGY) 00:00: mouth [place] 180 mg 00 daily. Medical tablet Branch fexofenadin 2021-0 Yes [id number] 180mg Take 1 [facility] e (LUIS 6-13 tablet by ity of ALLERGY) 00:00: mouth [place] 180 mg 00 daily. Medical tablet Branch fexofenadin 0 Yes [id number] 180mg Take 1 [facility] e (LUIS 6-13 tablet by ity of ALLERGY) 00:00: mouth [place] 180 mg 00 daily. Medical tablet Branch fexofenadin 0 Yes [id number] 180mg Take 1 [facility] e (LUIS 6-13 tablet by ity of ALLERGY) 00:00: mouth [place] 180 mg 00 daily. Medical tablet Branch fexofenadin 0 Yes [id number] 180mg Take 1 [facility] e (LUIS 6-13 tablet by ity of ALLERGY) 00:00: mouth [place] 180 mg 00 daily. Medical tablet Branch fexofenadin 0 Yes [id number] 180mg Take 1 [facility] e (LUIS 6-13 tablet by ity of ALLERGY) 00:00: mouth [place] 180 mg 00 daily. Medical tablet Branch fexofenadin 0 Yes [id number] 180mg Take 1 [facility] e (LUIS 6-13 tablet by ity of ALLERGY) 00:00: mouth [place] 180 mg 00 daily. Medical tablet Branch fexofenadin 0 Yes [id number] 180mg Take 1 [facility] e (LUIS 6-13 tablet by ity of ALLERGY) 00:00: mouth [place] 180 mg 00 daily. Medical tablet Branch fexofenadin 0 Yes [id number] 180mg Take 1 [facility] e (LUIS 6-13 tablet by ity of ALLERGY) 00:00: mouth [place] 180 mg 00 daily. Medical tablet Branch fexofenadin 0 Yes [id number] 180mg Take 1 [facility] e (LUIS 6-13 tablet by ity of ALLERGY) 00:00: mouth [place] 180 mg 00 daily. Medical tablet Branch fexofenadin Yes [id number] 180mg Take 1 [facility] e (LUIS 6-13 tablet by ity of ALLERGY) 00:00: mouth [place] 180 mg 00 daily. Medical tablet Branch fexofenadin 0 Yes [id number] 180mg Take 1 [facility] e (LUIS 6-13 tablet by ity of ALLERGY) 00:00: mouth [place] 180 mg 00 daily. Medical tablet Branch fexofenadin 2021-0 Yes [id number] 180mg Take 1 [facility] e (LUIS 6-13 tablet by ity of ALLERGY) 00:00: mouth [place] 180 mg 00 daily. Medical tablet Branch fexofenadin 2021-0 Yes [id number] 180mg Take 1 [facility] e (LUIS 6-13 tablet by ity of ALLERGY) 00:00: mouth [place] 180 mg 00 daily. Medical tablet Branch fexofenadin 0 Yes [id number] 180mg Take 1 [facility] e (LUIS 6-13 tablet by ity of ALLERGY) 00:00: mouth [place] 180 mg 00 daily. Medical tablet Branch fexofenadin 2021-0 Yes [id number] 180mg Take 1 [facility] e (LUIS 6-13 tablet by ity of ALLERGY) 00:00: mouth [place] 180 mg 00 daily. Medical tablet Branch fexofenadin 0 Yes [id number] 180mg Take 1 [facility] e (LUIS 6-13 tablet by ity of ALLERGY) 00:00: mouth [place] 180 mg 00 daily. Medical tablet Branch fexofenadin 0 Yes [id number] 180mg Take 1 [facility] e (LUIS 6-13 tablet by ity of ALLERGY) 00:00: mouth [place] 180 mg 00 daily. Medical tablet Branch fexofenadin 0 Yes [id number] 180mg Take 1 [facility] e (LUIS 6-13 tablet by ity of ALLERGY) 00:00: mouth [place] 180 mg 00 daily. Medical tablet Branch fexofenadin 0 Yes [id number] 180mg Take 1 [facility] e (LUIS 6-13 tablet by ity of ALLERGY) 00:00: mouth [place] 180 mg 00 daily. Medical tablet Branch fexofenadin 0 Yes [id number] 180mg Take 1 [facility] e (LUIS 6-13 tablet by ity of ALLERGY) 00:00: mouth [place] 180 mg 00 daily. Medical tablet Branch fexofenadin 0 Yes [id number] 180mg Take 1 [facility] e (LUIS 6-13 tablet by ity of ALLERGY) 00:00: mouth [place] 180 mg 00 daily. Medical tablet Branch fexofenadin 0 Yes [id number] 180mg Take 1 [facility] e (LUIS 6-13 tablet by ity of ALLERGY) 00:00: mouth [place] 180 mg 00 daily. Medical tablet Branch fexofenadin 0 Yes [id number] 180mg Take 1 [facility] e (LUIS 6-13 tablet by ity of ALLERGY) 00:00: mouth [place] 180 mg 00 daily. Medical tablet Branch fexofenadin 0 Yes [id number] 180mg Take 1 [facility] e (LUIS 6-13 tablet by ity of ALLERGY) 00:00: mouth [place] 180 mg 00 daily. Medical tablet Branch fexofenadin 0 Yes [id number] 180mg Take 1 [facility] e (LUIS 6-13 tablet by ity of ALLERGY) 00:00: mouth [place] 180 mg 00 daily. Medical tablet Branch fexofenadin 2021-0 3- No [id number] 180mg Take 1 [facility] e (LUIS 6-13 01-24 tablet by ity of ALLERGY) 00:00: 00:00 mouth [place] 180 mg 00 :00 daily. Medical tablet Branch fexofenadin 2022- No [id number] 180mg Take 1 [facility] e (LUIS 03-08 tablet by ity of ALLERGY) 00:00: 00:00 mouth [place] 180 mg 00 :00 daily. Medical tablet Branch fexofenadin 2022- No [id number] 180mg Take 1 [facility] e (LUIS 03-08 tablet by ity of ALLERGY) 00:00: 00:00 mouth [place] 180 mg 00 :00 daily. Medical tablet Branch rosuvastati Yes [id number] 10mg Take 1 [facility] n 10 mg 6-08 tablet by ity of tablet 00:00: mouth at [place] [address] bedtime. Medical Branch rosuvastati Yes [id number] 10mg Take 1 [facility] n 10 mg 6-08 tablet by ity of tablet 00:00: mouth at [place] [address] bedtime. Medical Branch rosuvastati Yes [id number] 10mg Take 1 [facility] n 10 mg 6-08 tablet by ity of tablet 00:00: mouth at [place] 00 bedtime. Medical Branch rosuvastati Yes [id number] 10mg Take 1 [facility] n 10 mg 6-08 tablet by ity of tablet 00:00: mouth at [place] [address] bedtime. Medical Branch rosuvastati Yes [id number] 10mg Take 1 [facility] n 10 mg 6-08 tablet by ity of tablet 00:00: mouth at [place] [address] bedtime. Medical Branch rosuvastati Yes [id number] 10mg Take 1 [facility] n 10 mg 6-08 tablet by ity of tablet 00:00: mouth at [place] 00 bedtime. Medical Branch rosuvastati Yes [id number] 10mg Take 1 [facility] n 10 mg 6-08 tablet by ity of tablet 00:00: mouth at [place] 00 bedtime. Medical Branch rosuvastati Yes [id number] 10mg Take 1 [facility] n 10 mg 6-08 tablet by ity of tablet 00:00: mouth at [place] [address] bedtime. Medical Branch rosuvastati Yes [id number] 10mg Take 1 [facility] n 10 mg 6-08 tablet by ity of tablet 00:00: mouth at [place] bedtime. Medical Branch rosuvastati 2021-0 Yes [id number] 10mg Take 1 [facility] n 10 mg 6-08 tablet by ity of tablet 00:00: mouth at [place] bedtime. Medical Branch rosuvastati 2021-0 Yes [id number] 10mg Take 1 [facility] n 10 mg 6-08 tablet by ity of tablet 00:00: mouth at [place] bedtime. Medical Branch rosuvastati 2021-0 Yes [id number] 10mg Take 1 [facility] n 10 mg 6-08 tablet by ity of tablet 00:00: mouth at [place] bedtime. Medical Branch rosuvastati 2021- Yes [id number] 10mg Take 1 [facility] n 10 mg 6-08 tablet by ity of tablet 00:00: mouth at [place] bedtime. Medical Branch rosuvastati 2021- Yes [id number] 10mg Take 1 [facility] n 10 mg 6-08 tablet by ity of tablet 00:00: mouth at [place] bedtime. Medical Branch rosuvastati Yes [id number] 10mg Take 1 [facility] n 10 mg 6-08 tablet by ity of tablet 00:00: mouth at [place] bedtime. Medical Branch rosuvastati Yes [id number] 10mg Take 1 [facility] n 10 mg 6-08 tablet by ity of tablet 00:00: mouth at [place] bedtime. Medical Branch rosuvastati 2021- Yes [id number] 10mg Take 1 [facility] n 10 mg 6-08 tablet by ity of tablet 00:00: mouth at [place] bedtime. Medical Branch rosuvastati 2021-0 Yes [id number] 10mg Take 1 [facility] n 10 mg 6-08 tablet by ity of tablet 00:00: mouth at [place] bedtime. Medical Branch rosuvastati 2021-0 Yes [id number] 10mg Take 1 [facility] n 10 mg 6-08 tablet by ity of tablet 00:00: mouth at [place] bedtime. Medical Branch rosuvastati 2021-0 Yes [id number] 10mg Take 1 [facility] n 10 mg 6-08 tablet by ity of tablet 00:00: mouth at [place] bedtime. Medical Branch rosuvastati 2021-0 Yes [id number] 10mg Take 1 [facility] n 10 mg 6-08 tablet by ity of tablet 00:00: mouth at [place] 00 bedtime. Medical Branch rosuvastati 2021-0 Yes [id number] 10mg Take 1 [facility] n 10 mg 6-08 tablet by ity of tablet 00:00: mouth at [place] bedtime. Medical Branch rosuvastati 2021- Yes [id number] 10mg Take 1 [facility] n 10 mg 6-08 tablet by ity of tablet 00:00: mouth at [place] bedtime. Medical Branch rosuvastati 2021-0 Yes [id number] 10mg Take 1 [facility] n 10 mg 6-08 tablet by ity of tablet 00:00: mouth at [place] 00 bedtime. Medical Branch rosuvastati Yes [id number] 10mg Take 1 [facility] n 10 mg 6-08 tablet by ity of tablet 00:00: mouth at [place] bedtime. Medical Branch rosuvastati 0 Yes [id number] 10mg Take 1 [facility] n 10 mg 6-08 tablet by ity of tablet 00:00: mouth at [place] bedtime. Medical Branch rosuvastati Yes [id number] 10mg Take 1 [facility] n 10 mg 6-08 tablet by ity of tablet 00:00: mouth at [place] [address] bedtime. Medical Branch rosuvastati Yes [id number] 10mg Take 1 [facility] n 10 mg 6-08 tablet by ity of tablet 00:00: mouth at [place] [address] bedtime. Medical Branch rosuvastati 2021-0 Yes [id number] 10mg Take 1 [facility] n 10 mg 6-08 tablet by ity of tablet 00:00: mouth at [place] [address] bedtime. Medical Branch rosuvastati 0 Yes [id number] 10mg Take 1 [facility] n 10 mg 6-08 tablet by ity of tablet 00:00: mouth at [place] 00 bedtime. Medical Branch rosuvastati 0 Yes [id number] 10mg Take 1 [facility] n 10 mg 6-08 tablet by ity of tablet 00:00: mouth at [place] [address] bedtime. Medical Branch rosuvastati 2021- Yes [id number] 10mg Take 1 [facility] n 10 mg 6-08 tablet by ity of tablet 00:00: mouth at [place] [address] bedtime. Medical Branch rosuvastati 2021-0 Yes [id number] 10mg Take 1 [facility] n 10 mg 6-08 tablet by ity of tablet 00:00: mouth at [place] 00 bedtime. Medical Branch rosuvastati 2021-0 Yes [id number] 10mg Take 1 [facility] n 10 mg 6-08 tablet by ity of tablet 00:00: mouth at [place] bedtime. Medical Branch rosuvastati 2021-0 Yes [id number] 10mg Take 1 [facility] n 10 mg 6-08 tablet by ity of tablet 00:00: mouth at [place] bedtime. Medical Branch rosuvastati 2021-0 Yes [id number] 10mg Take 1 [facility] n 10 mg 6-08 tablet by ity of tablet 00:00: mouth at [place] bedtime. Medical Branch rosuvastati Yes [id number] 10mg Take 1 [facility] n 10 mg 6-08 tablet by ity of tablet 00:00: mouth at [place] bedtime. Medical Branch rosuvastati 2021-0 Yes [id number] 10mg Take 1 [facility] n 10 mg 6-08 tablet by ity of tablet 00:00: mouth at [place] bedtime. Medical Branch rosuvastati Yes [id number] 10mg Take 1 [facility] n 10 mg 6-08 tablet by ity of tablet 00:00: mouth at [place] bedtime. Medical Branch rosuvastati Yes [id number] 10mg Take 1 [facility] n 10 mg 6-08 tablet by ity of tablet 00:00: mouth at [place] bedtime. Medical Branch rosuvastati 2021-0 Yes [id number] 10mg Take 1 [facility] n 10 mg 6-08 tablet by ity of tablet 00:00: mouth at [place] bedtime. Medical Branch rosuvastati 2021-0 Yes [id number] 10mg Take 1 [facility] n 10 mg 6-08 tablet by ity of tablet 00:00: mouth at [place] bedtime. Medical Branch rosuvastati 2021-0 Yes [id number] 10mg Take 1 [facility] n 10 mg 6-08 tablet by ity of tablet 00:00: mouth at [place] bedtime. Medical Branch rosuvastati 2021-0 Yes [id number] 10mg Take 1 [facility] n 10 mg 6-08 tablet by ity of tablet 00:00: mouth at [place] 00 bedtime. Medical Branch rosuvastati Yes [id number] 10mg Take 1 [facility] n 10 mg 6-08 tablet by ity of tablet 00:00: mouth at [place] 00 bedtime. [facility] rosuvastati 2021- No [id number] 10mg Take 1 Univers n 10 mg 6-08 10-13 tablet by ity of tablet 00:00: 00:00 mouth at [place] 00 :00 bedtime. [facility] water for 2021- No PRN, Univers irrigation 03-02 Starting ity of irrigation 14:20: 15:50 [place] solution 00 :27 03/02/22 at Medica l 0920, Branch Until Tue03/02/22 at 1050, Routine, Intra-op simethicone 2021- No PRN, [facility] (GAS RELIEF 03-02 Starting ity of (SIMETHICON 14:20: 15:50 on e [place] as E)) 40 00 :27 03/02/22 at Medical mg/0.6 mL 0920, Branch drops Until Tue03/02/22 at 1050, Routine, Intra-op lactated 2021- No 1000mL at 42 [facility] ringers IV 03-02 06-07 mL/hr, ity of infusion 12:45: 12:59 1,000 mL, [place] as 1,000 mL 00 :00 IV Medical Infusion, Branch ONCE, 1 dose, On Tue03/02/22 at 0745, Routine, DSU Pre-op lactated 2021- No 1000mL at 42 [facility] ringers IV 03-02 06-07 mL/hr, ity of infusion 12:45: 12:59 1,000 mL, [place] as 1,000 mL 00 :00 IV Medical Infusion, Branch ONCE, 1 dose, On Tue03/02/22 at 0745, Routine, DSU Pre-op FOLIC ACID Yes Take by Univ ers ORAL 03-02 mouth ity of 11:23: daily. [address] MULTIVIT Yes Take by [facility] &MINERALS/F 03-02 mouth. ity of ERROUS FUM 11:23: [place] ([place] [address] Medical VITAMIN [place] ORAL) METHYLCELLU Yes Univer s LOSE (FIBER 6-07 ity of THERAPY 11:23: [facility]) 09 Medical Branch DOCUSATE Yes Take by [facility] SODIUM 6-07 mouth. ity of (COLACE [...] Branch unit tablet CRANBERRY Yes Take by [facility] rs FRUIT 6-07 mouth ity of EXTRACT 11:23: daily. [place] ([place] 09 Medical ORAL) Branch CALCIUM Yes Take by Univers ORAL 6-07 mouth ity of 11:23: daily. [place] Medical Branch DOCOSAHEXAN Yes 1000mg Take 1,000 Univers OIC 6-07 mg by ity of ACID/EPA 11:23: mouth [place] (FISH OIL 09 daily. Medical ORAL) Branch BIOTIN ORAL Yes Take by Uni vers 6-07 mouth. ity of 11:23: [place] [address] Medical Branch FOLIC ACID Yes Take by Univ ers ORAL 6-07 mouth ity of 11:23: daily. [place] Medical Branch MULTIVIT Yes Take by [facility] &MINERALS/F 6-07 mouth. ity of ERROUS FUM 11:23: [place] (MULTI 09 Medical VITAMIN Branch ORAL) METHYLCELLU 0 Yes Univer s LOSE (FIBER 6-07 ity of THERAPY 11:23: [facility]) 09 Medical Branch DOCUSATE Yes Take by [facility] SODIUM 6-07 mouth. ity of (COLACE 11:23: [place] ORAL) 09 Medical Branch vitamin C Yes 1000mg Take 1,000 Univers with derrell 6-07 mg by ity of hips 11:23: mouth [place] (VITAMIN C) 09 daily. Medica l 1,000 mg Branch tablet cholecalcif 0 Yes 1000U Take 1,000 Univers edmar, 6-07 Units by ity of vitamin D3, 11:23: mouth [place] (VITAMIN 09 daily. Medical D3) 1,000 Branch unit tablet CRANBERRY Yes Take by [facility] FRUIT 6-07 mouth ity of EXTRACT 11:23: daily. [place] ([place] Medical ORAL) Branch CALCIUM Yes Take by Univers ORAL 6-07 mouth ity of 11:23: daily. [place] Medical Branch DOCOSAHEXAN Yes 1000mg Take 1,000 Univers OIC 6-07 mg by ity of ACID/EPA 11:23: mouth [place] (FISH OIL 09 daily. Medical ORAL) Branch BIOTIN ORAL Yes Take by Uni vers 6-07 mouth. ity of 11:23: [place] [address] Medical Branch FOLIC ACID Yes Take by Univ ers ORAL 6-07 mouth ity of 11:23: daily. [place] Medical Branch MULTIVIT Yes Take by [facility] s &MINERALS/F 6-07 mouth. ity of ERROUS FUM 11:23: [place] (MULTI 09 Medical VITAMIN Branch ORAL) METHYLCELLU Yes [facility] LOSE (FIBER 6-07 ity of THERAPY 11:23: [place] MISC) Medical Branch DOCUSATE Yes Take by [facility] SODIUM 6-07 mouth. ity of (COLACE 11:23: [place] ORAL) Medical Branch vitamin C Yes 1000mg Take 1,000 Univers with derrell 6-07 mg by ity of hips 11:23: mouth [place] (VITAMIN C) 09 daily. Medica l 1,000 mg Branch tablet cholecalcif Yes 1000U Take 1,000 Univers edmar, 6-07 Units by ity of vitamin D3, 11:23: mouth [place] (VITAMIN 09 daily. Medical D3) 1,000 Branch unit tablet CRANBERRY Yes Take by [facility] FRUIT 6-07 mouth ity of EXTRACT 11:23: daily. [place] ([place] Medical ORAL) Branch CALCIUM Yes Take by Univers ORAL 6-07 mouth ity of 11:23: daily. [place] Medical Branch DOCOSAHEXAN Yes 1000mg Take 1,000 Univers OIC 6-07 mg by ity of ACID/EPA 11:23: mouth [place] (FISH OIL 09 daily. Medical ORAL) Branch BIOTIN ORAL 2022-0 Yes Take by Uni vers 6-07 mouth. ity of 11:23: [place] Medical Branch FOLIC ACID Yes Take by Univ ers ORAL 6-07 mouth ity of 11:23: daily. [place] Medical Branch MULTIVIT Yes Take by Univer s &MINERALS/F 6-07 mouth. ity of ERROUS FUM 11:23: [place] ([place] [address] Medical VITAMIN Branch ORAL) METHYLCELLU Yes Univer s LOSE (FIBER 6-07 ity of THERAPY 11:23: [facility]) 09 Medical Branch DOCUSATE Yes Take by Univer s SODIUM 6-07 mouth. ity of (COLACE 11:23: [place] ORAL) 09 Medical Branch vitamin C Yes 1000mg Take 1,000 Univers with derrell 6-07 mg by ity of hips 11:23: mouth [place] (VITAMIN C) 09 daily. Medica l 1,000 mg Branch tablet cholecalcif Yes 1000U Take 1,000 Univers edmar, 6-07 Units by ity of vitamin D3, 11:23: mouth [place] (VITAMIN 09 daily. Medical D3) 1,000 Branch unit tablet CRANBERRY Yes Take by Unive rs FRUIT 6-07 mouth ity of EXTRACT 11:23: daily. [place] ([place] Medical ORAL) Branch CALCIUM Yes Take by Univers ORAL 6-07 mouth ity of 11:23: daily. [place] Medical Branch DOCOSAHEXAN Yes 1000mg Take 1,000 Univers OIC 6-07 mg by ity of ACID/EPA 11:23: mouth [place] (FISH OIL 09 daily. Medical ORAL) Branch BIOTIN ORAL Yes Take by Uni vers 6-07 mouth. ity of 11:23: [place] Medical Branch FOLIC ACID Yes Take by Uni vers ORAL 6-07 mouth ity of 11:23: daily. [place] Medical Branch MULTIVIT Yes Take by Univer s &MINERALS/F 6-07 mouth. ity of ERROUS FUM 11:23: [place] ([facility] 09 Medical VITAMIN Branch ORAL) METHYLCELLU 0 Yes Univer s LOSE (FIBER 6-07 ity of THERAPY 11:23: [facility]) 09 Medical Branch DOCUSATE 2022-0 Yes Take by Univer s SODIUM 6-07 [...] unit tablet CRANBERRY Yes Take by [facility] FRUIT 6-07 mouth ity of EXTRACT 11:23: daily. [place] ([place] Medical ORAL) Branch CALCIUM Yes Take by [facility] ORAL 6-07 mouth ity of 11:23: daily. [place] Medical Branch DOCOSAHEXAN Yes 1000mg Take 1,000 Univers OIC 6-07 mg by ity of ACID/EPA 11:23: mouth [place] (FISH OIL 09 daily. Medical ORAL) Branch BIOTIN ORAL Yes Take by [facility] vers 6-07 mouth. ity of 11:23: [place] Medical Branch FOLIC ACID Yes Take by [facility] ers ORAL 6-07 mouth ity of 11:23: daily. [place] Medical Branch MULTIVIT Yes Take by [facility] s &MINERALS/F 6-07 mouth. ity of ERROUS FUM 11:23: [place] (MULTI 09 Medical VITAMIN Branch ORAL) METHYLCELLU Yes [facility] s LOSE (FIBER 6-07 ity of THERAPY 11:23: [place] MISC) 09 Medical Branch DOCUSATE Yes Take by [facility] SODIUM 6-07 mouth. ity of (COLACE 11:23: [place] ORAL) 09 Medical Branch vitamin C Yes 1000mg Take 1,000 Univers with derrell 6-07 mg by ity of hips 11:23: mouth [place] (VITAMIN C) 09 daily. Medica l 1,000 mg Branch tablet cholecalcif Yes 1000U Take 1,000 Univers edmar, 6-07 Units by ity of vitamin D3, 11:23: mouth [place] (VITAMIN 09 daily. Medical D3) 1,000 Branch unit tablet CRANBERRY Yes Take by Unive rs FRUIT 6-07 mouth ity of EXTRACT 11:23: daily. [place] ([place] Medical ORAL) Branch CALCIUM Yes Take by Univers ORAL 6-07 mouth ity of 11:23: daily. [place] Medical Branch DOCOSAHEXAN Yes 1000mg Take 1,000 Univers OIC 6-07 mg by ity of ACID/EPA 11:23: mouth [place] (FISH OIL 09 daily. Medical ORAL) Branch BIOTIN ORAL Yes Take by Uni vers 6-07 mouth. ity of 11:23: Medical Branch FOLIC ACID Yes Take by Univ ers ORAL 6-07 mouth ity of 11:23: daily. [place] Medical Branch MULTIVIT Yes Take by Univer s &MINERALS/F 6-07 mouth. ity of ERROUS FUM 11:23: [place] (MULTI 09 Medical VITAMIN Branch ORAL) METHYLCELLU Yes Univer s LOSE (FIBER 6-07 ity of THERAPY 11:23: [place] MISC) Medical Branch DOCUSATE Yes Take by Univer s SODIUM 6-07 mouth. ity of (COLACE 11:23: [place] ORAL) 09 Medical Branch vitamin C Yes 1000mg Take 1,000 Univers with derrell 6-07 mg by ity of hips 11:23: mouth [place] (VITAMIN C) 09 daily. Medica l 1,000 mg Branch tablet cholecalcif Yes 1000U Take 1,000 Univers edmar, 6-07 Units by ity of vitamin D3, 11:23: mouth [place] (VITAMIN 09 daily. Medical D3) 1,000 Branch unit tablet CRANBERRY Yes Take by [facility] FRUIT 6-07 mouth ity of EXTRACT 11:23: daily. [place] ([place] Medical ORAL) Branch CALCIUM Yes Take by Univers ORAL 6-07 mouth ity of 11:23: daily. [place] Medical Branch DOCOSAHEXAN Yes 1000mg Take 1,000 Univers OIC 6-07 mg by ity of ACID/EPA 11:23: mouth [place] (FISH OIL 09 daily. Medical ORAL) Branch BIOTIN ORAL Yes Take by Uni vers 6-07 mouth. ity of 11:23: [place] Medical Branch FOLIC ACID 2022-0 Yes Take by Univ ers ORAL 6-07 mouth ity of 11:23: daily. [place] Medical Branch MULTIVIT Yes Take by [facility] &MINERALS/F 6-07 mouth. ity of ERROUS FUM 11:23: [place] (MULTI 09 Medical VITAMIN Branch ORAL) METHYLCELLU Yes [facility] LOSE (FIBER 6-07 ity of THERAPY 11:23: [facility]) 09 Medical Branch DOCUSATE Yes Take by [facility] SODIUM 6-07 mouth. ity of (COLACE 11:23: [place] ORAL) 09 Medical Branch vitamin C Yes 1000mg Take 1,000 Univers with derrell 6-07 mg by ity of hips 11:23: mouth [place] (VITAMIN C) 09 daily. Medica l 1,000 mg Branch tablet cholecalcif Yes 1000U Take 1,000 Univers edmar, 6-07 Units by ity of vitamin D3, 11:23: mouth [place] (VITAMIN 09 daily. Medical D3) 1,000 Branch unit tablet CRANBERRY Yes Take by [facility] rs FRUIT 6-07 mouth ity of EXTRACT 11:23: daily. [place] ([place] Medical ORAL) Branch CALCIUM Yes Take by Univers ORAL 6-07 mouth ity of 11:23: daily. [place] Medical Branch DOCOSAHEXAN Yes 1000mg Take 1,000 Univers OIC 6-07 mg by ity of ACID/EPA 11:23: mouth [place] (FISH OIL 09 daily. Medical ORAL) Branch BIOTIN ORAL Yes Take by Uni vers 6-07 mouth. ity of 11:23: [place] [address] Medical Branch FOLIC ACID Yes Take by [facility] ers ORAL 6-07 mouth ity of 11:23: daily. [place] [address] Medical Branch MULTIVIT Yes Take by [facility] &MINERALS/F 6-07 mouth. ity of ERROUS FUM 11:23: [place] (MULTI 09 Medical VITAMIN Branch ORAL) METHYLCELLU Yes [facility] LOSE (FIBER 6-07 ity of THERAPY 11:23: [facility]) 09 Medical Branch DOCUSATE Yes Take by [facility] SODIUM 6-07 mouth. ity of (COLACE 11:23: [...] 6-07 mouth ity of EXTRACT 11:23: daily. [place] (CRANBERRY Medical ORAL) Branch CALCIUM Yes Take by [facility] ORAL 6-07 mouth ity of 11:23: daily. [place] [facility] DOCOSAHEXAN Yes 1000mg Take 1,000 [facility] OIC 6-07 mg by ity of ACID/EPA 11:23: mouth [place] (FISH OIL 09 daily. Medical ORAL) Branch BIOTIN ORAL Yes Take by Uni vers 6-07 mouth. ity of 11:23: [place] [address] Medical Branch FOLIC ACID Yes Take by [facility] ers ORAL 6-07 mouth ity of 11:23: daily. [place] [facility] MULTIVIT Yes Take by [facility] &MINERALS/F 6-07 mouth. ity of ERROUS FUM 11:23: [place] (MULTI 09 Medical VITAMIN Branch ORAL) METHYLCELLU Yes [facility]iver [facility] LOSE (FIBER 6-07 ity of THERAPY 11:23: [place] MISC) 09 Medical Branch DOCUSATE Yes Take by [facility] SODIUM 6-07 mouth. ity of (COLACE [...] unit tablet CRANBERRY 0 Yes Take by [facility] rs FRUIT 6-07 mouth ity of EXTRACT 11:23: daily. [place] ([place] Medical ORAL) Branch CALCIUM 0 Yes Take by [facility] ORAL 6-07 mouth ity of 11:23: daily. [place] [facility] DOCOSAHEXAN Yes 1000mg Take 1,000 [facility] OIC 6-07 mg by ity of ACID/EPA 11:23: mouth [place] (FISH OIL 09 daily. Medical ORAL) Branch BIOTIN ORAL Yes Take by [facility] vers 6-07 mouth. ity of 11:23: Medical Branch FOLIC ACID Yes Take by [facility] ers ORAL 6-07 mouth ity of 11:23: daily. [place] [facility] MULTIVIT Yes Take by [facility] s &MINERALS/F 6-07 mouth. ity of ERROUS FUM 11:23: [place] (MULTI 09 Medical VITAMIN Branch ORAL) METHYLCELLU Yes [facility] s LOSE (FIBER 6-07 ity of THERAPY 11:23: [place] MISC) 09 Medical Branch DOCUSATE Yes Take by [facility] s SODIUM 6-07 mouth. ity of (COLACE 11:23: [place] ORAL) 09 Medical Branch vitamin C Yes 1000mg Take 1,000 [facility] with derrell 6-07 mg by ity of hips 11:23: mouth [place] (VITAMIN C) 09 daily. Medica l 1,000 mg Branch tablet cholecalcif Yes 1000U Take 1,000 [facility] edmar, 6-07 Units by ity of vitamin D3, 11:23: mouth [place] (VITAMIN 09 daily. Medical D3) 1,000 Branch unit tablet CRANBERRY Yes Take by [facility] rs FRUIT 6-07 mouth ity of EXTRACT 11:23: daily. [place] ([place] Medical ORAL) Branch CALCIUM Yes Take by [facility] ORAL 6-07 mouth ity of 11:23: daily. [place] [facility] DOCOSAHEXAN Yes 1000mg Take 1,000 [facility] OIC 6-07 mg by ity of ACID/EPA 11:23: mouth [place] (FISH OIL 09 daily. Medical ORAL) Branch BIOTIN ORAL Yes Take by [facility] vers 6-07 mouth. ity of 11:23: Medical Branch FOLIC ACID Yes Take by [facility] ers ORAL 6-07 mouth ity of 11:23: daily. [place] [facility] MULTIVIT Yes Take by [facility] s &MINERALS/F 6-07 mouth. ity of ERROUS FUM 11:23: [place] (MULTI 09 Medical VITAMIN Branch ORAL) METHYLCELLU 0 Yes [facility] LOSE (FIBER 6-07 ity of THERAPY 11:23: [facility]) 09 Medical Branch DOCUSATE Yes Take by [facility] SODIUM 6-07 mouth. ity of (COLACE 11:23: [place] ORAL) 09 Medical Branch vitamin C Yes 1000mg Take 1,000 [facility] with derrell 6-07 mg by ity of hips 11:23: mouth [place] (VITAMIN C) 09 daily. Medica l 1,000 mg Branch tablet cholecalcif Yes 1000U Take 1,000 [facility] edmar, 6-07 Units by ity of vitamin D3, 11:23: mouth [place] (VITAMIN 09 daily. Medical D3) 1,000 Branch unit tablet CRANBERRY Yes Take by [facility] rs FRUIT 6-07 mouth ity of EXTRACT 11:23: daily. [place] (CRAN[place]ERRY 09 Medical ORAL) Branch CALCIUM Yes Take by [facility] ORAL 6-07 mouth ity of 11:23: daily. [place] [facility] DOCOSAHEXAN Yes 1000mg Take 1,000 [facility] OIC 6-07 mg by ity of ACID/EPA 11:23: mouth [place] (FISH OIL 09 daily. Medical ORAL) Branch BIOTIN ORAL Yes Take by [facility] vers 6-07 mouth. ity of 11:23: [place] [address] Medical Branch FOLIC ACID Yes Take by [facility] ers ORAL 6-07 mouth ity of 11:23: daily. [place] [address] Medical Branch MULTIVIT Yes Take by [facility] &MINERALS/F 6-07 mouth. ity of ERROUS FUM 11:23: [place] (MULTI 09 Medical VITAMIN Branch ORAL) METHYLCELLU 0 Yes [facility] LOSE (FIBER 6-07 ity of THERAPY 11:23: [facility]) 09 Medical Branch DOCUSATE 0 Yes Take by [facility] s SODIUM 6-07 mouth. ity of (COLACE 11:23: [place] ORAL) 09 Medical Branch vitamin C Yes 1000mg Take 1,000 [facility] with derrell 6-07 mg by ity of hips 11:23: mouth [place] (VITAMIN C) 09 daily. Medica l 1,000 mg Branch tablet cholecalcif 0 Yes 1000U Take 1,000 [facility] edmar, 6-07 Units by ity of vitamin D3, 11:23: mouth [place] (VITAMIN 09 daily. Medical D3) 1,000 Branch unit tablet CRANBERRY 0 Yes Take by [facility] FRUIT 6-07 mouth ity of EXTRACT 11:23: daily. [place] ([place] Medical ORAL) Branch CALCIUM Yes Take by [facility] ORAL 6-07 mouth ity of 11:23: daily. [place] [facility] DOCOSAHEXAN Yes 1000mg Take 1,000 [facility] OIC 6-07 mg by ity of ACID/EPA 11:23: mouth [place] (FISH OIL 09 daily. Medical ORAL) Branch BIOTIN ORAL Yes Take by [facility] vers 6-07 mouth. ity of 11:23: Medical Branch FOLIC ACID Yes Take by [facility] ers ORAL 6-07 mouth ity of 11:23: daily. [place] [facility] MULTIVIT Yes Take by [facility] &MINERALS/F 6-07 mouth. ity of ERROUS FUM 11:23: [place] (MULTI 09 Medical VITAMIN Branch ORAL) METHYLCELLU Yes [facility] LOSE (FIBER 6-07 ity of THERAPY 11:23: [place] MISC) 09 Medical Branch DOCUSATE Yes Take by [facility] SODIUM 6-07 mouth. ity of (COLACE 11:23: [place] ORAL) 09 Medical Branch vitamin C Yes 1000mg Take 1,000 [facility] with derrell 6-07 mg by ity of hips 11:23: mouth [place] (VITAMIN C) 09 daily. Medica l 1,000 mg Branch tablet cholecalcif 0 Yes 1000U Take 1,000 [facility] edmar, 6-07 Units by ity of vitamin D3, 11:23: mouth [place] (VITAMIN 09 daily. Medical D3) 1,000 Branch unit tablet CRANBERRY 2021-0 Yes Take by [facility] FRUIT 6-07 mouth ity of EXTRACT 11:23: daily. [place] (CRAN[place]Y 09 Medical ORAL) Branch CALCIUM Yes Take by [facility] ORAL 6-07 mouth ity of 11:23: daily. [place] [facility] DOCOSAHEXAN 0 Yes 1000mg Take 1,000 [facility] OIC 6-07 mg by ity of ACID/EPA 11:23: mouth [place] (FISH OIL 09 daily. Medical ORAL) Branch BIOTIN ORAL Yes Take by [facility] vers 6-07 mouth. ity of 11:23: Medical Branch FOLIC ACID Yes Take by [facility] ers ORAL 6-07 mouth ity of 11:23: daily. [place] [facility] MULTIVIT Yes Take by [facility]iver s &MINERALS/F 6-07 mouth. ity of ERROUS FUM 11:23: [place] (MULTI 09 Medical VITAMIN Branch ORAL) METHYLCELLU Yes [facility] LOSE (FIBER 6-07 ity of THERAPY 11:23: [place] MISC) Medical Branch DOCUSATE Yes Take by [facility] SODIUM 6-07 mouth. ity of (COLACE 11:23: [place] ORAL) 09 Medical Branch vitamin C Yes 1000mg Take 1,000 [facility] with derrell 6-07 mg by ity of hips 11:23: mouth [place] (VITAMIN C) 09 daily. Medica l 1,000 mg Branch tablet cholecalcif Yes 1000U Take 1,000 [facility] edmar, 6-07 Units by ity of vitamin D3, 11:23: mouth [place] (VITAMIN 09 daily. Medical D3) 1,000 Branch unit tablet CRANBERRY Yes Take by [facility]ive rs FRUIT 6-07 mouth ity of EXTRACT 11:23: daily. [place] ([place] Medical ORAL) Branch CALCIUM Yes Take by [facility] ORAL 6-07 mouth ity of 11:23: daily. [place] [facility] DOCOSAHEXAN Yes 1000mg Take 1,000 [facility] OIC 6-07 mg by ity of ACID/EPA 11:23: mouth [place] (FISH OIL 09 daily. Medical ORAL) Branch BIOTIN ORAL Yes Take by [facility] vers 6-07 mouth. ity of 11:23: [place] [facility] FOLIC ACID 0 Yes Take by [facility] ers ORAL 6-07 mouth ity of 11:23: daily. [place] [address] Medical Branch MULTIVIT Yes Take by Univer s &MINERALS/F 6-07 mouth. ity of ERROUS FUM 11:23: [place] (MULTI 09 Medical VITAMIN Branch ORAL) METHYLCELLU 2022-0 Yes Univer s LOSE (FIBER 6-07 ity of THERAPY 11:23: [facility]) 09 Medical Branch DOCUSATE Yes Take [...] Branch unit tablet CRANBERRY Yes Take by [facility] rs FRUIT 6-07 mouth ity of EXTRACT 11:23: daily. [place] (CRANBERRY 09 Medical ORAL) Branch CALCIUM Yes Take by [facility] ORAL 6-07 mouth ity of 11:23: daily. [place] [facility] DOCOSAHEXAN Yes 1000mg Take 1,000 [facility] OIC 6-07 mg by ity of ACID/EPA 11:23: mouth [place] (FISH OIL 09 daily. Medical ORAL) Branch BIOTIN ORAL Yes Take by [facility] vers 6-07 mouth. ity of 11:23: [place] [address] Medical Branch FOLIC ACID Yes Take by [facility] ers ORAL 6-07 mouth ity of 11:23: daily. [place] [facility] MULTIVIT Yes Take by [facility] &MINERALS/F 6-07 mouth. ity of ERROUS FUM 11:23: [place] (MULTI 09 Medical VITAMIN Branch ORAL) METHYLCELLU 0 Yes Univer s LOSE (FIBER 6-07 ity of THERAPY 11:23: [facility]) 09 Medical Branch DOCUSATE Yes Take by [facility] SODIUM 6-07 mouth. ity of (COLACE 11:23: [place] ORAL) 09 Medical Branch vitamin C Yes [...] 6-07 mouth ity of EXTRACT 11:23: daily. [place] ([place] Medical ORAL) Branch CALCIUM Yes Take by [facility] ORAL 6-07 mouth ity of 11:23: daily. [place] [facility] DOCOSAHEXAN Yes 1000mg Take 1,000 [facility] OIC 6-07 mg by ity of ACID/EPA 11:23: mouth [place] (FISH OIL 09 daily. Medical ORAL) Branch BIOTIN ORAL Yes Take by [facility] vers 6-07 mouth. ity of 11:23: [place] [facility] FOLIC ACID Yes Take by [facility] ers ORAL 6-07 mouth ity of 11:23: daily. [place] [facility] MULTIVIT Yes Take by [facility]iver s &MINERALS/F 6-07 mouth. ity of ERROUS FUM 11:23: [place] (MULTI 09 Medical VITAMIN Branch ORAL) METHYLCELLU Yes Univer s LOSE (FIBER 6-07 ity of THERAPY 11:23: [place] MISC) Medical Branch DOCUSATE Yes Take by [facility] s SODIUM 6-07 mouth. ity of (COLACE 11:23: [place] ORAL) Medical Branch vitamin C Yes 1000mg Take 1,000 [facility] with derrell 6-07 mg by ity of hips 11:23: mouth [place] (VITAMIN C) 09 daily. Medica l 1,000 mg Branch tablet cholecalcif Yes 1000U Take 1,000 [facility] edmar, 6-07 Units by ity of vitamin D3, 11:23: mouth [place] (VITAMIN 09 daily. Medical D3) 1,000 Branch unit tablet CRANBERRY Yes Take by [facility] FRUIT 6-07 mouth ity of EXTRACT 11:23: daily. [place] ([place] Medical ORAL) Branch CALCIUM Yes Take by [facility] ORAL 6-07 mouth ity of 11:23: daily. [place] [facility] DOCOSAHEXAN Yes 1000mg Take 1,000 [facility] OIC 6-07 mg by ity of ACID/EPA 11:23: mouth [place] (FISH OIL 09 daily. Medical ORAL) Branch BIOTIN ORAL Yes Take by [facility] vers 6-07 mouth. ity of 11:23: Medical Branch FOLIC ACID Yes Take by [facility] ers ORAL 6-07 mouth ity of 11:23: daily. [place] [facility] MULTIVIT Yes Take by [facility] s &MINERALS/F 6-07 mouth. ity of ERROUS FUM 11:23: [place] (MULTI 09 Medical VITAMIN Branch ORAL) METHYLCELLU 0 Yes [facility]iver s LOSE (FIBER 6-07 ity of THERAPY 11:23: [facility]) 09 Medical Branch DOCUSATE Yes Take by Univer s SODIUM 6-07 mouth. ity of (COLACE 11:23: [place] ORAL) 09 Medical Branch vitamin C Yes 1000mg Take 1,000 [facility] with derrell 6-07 mg by ity of hips 11:23: mouth [place] (VITAMIN C) 09 daily. Medica l 1,000 mg Branch tablet cholecalcif Yes 1000U Take 1,000 [facility] edmar, 6-07 Units by ity of vitamin D3, 11:23: mouth [place] (VITAMIN 09 daily. Medical D3) 1,000 Branch unit tablet CRANBERRY Yes Take by [facility]ive rs FRUIT 6-07 mouth ity of EXTRACT 11:23: daily. [place] ([place] Medical ORAL) Branch CALCIUM Yes Take by [facility] ORAL 6-07 mouth ity of 11:23: daily. [place] [facility] DOCOSAHEXAN Yes 1000mg Take 1,000 [facility] OIC 6-07 mg by ity of ACID/EPA 11:23: mouth [place] (FISH OIL 09 daily. Medical ORAL) Branch BIOTIN ORAL Yes Take by [facility] vers 6-07 mouth. ity of 11:23: Medical Branch FOLIC ACID Yes Take by [facility] ers ORAL 6-07 mouth ity of 11:23: daily. [place] [facility] MULTIVIT 0 Yes Take by [facility]iver s &MINERALS/F 6-07 mouth. ity of ERROUS FUM 11:23: [place] (MULTI 09 Medical VITAMIN Branch ORAL) METHYLCELLU 0 Yes Univer s LOSE (FIBER 6-07 ity of THERAPY 11:23: [facility]) 09 Medical Branch DOCUSATE 2022-0 Yes Take by [facility] s SODIUM 6-07 mouth. ity of [...] Branch unit tablet CRANBERRY Yes Take by [facility] rs FRUIT 6-07 mouth ity of EXTRACT 11:23: daily. [place] (CRAN[place] Medical ORAL) Branch CALCIUM Yes Take by [facility] ORAL 6-07 mouth ity of 11:23: daily. [place] [facility] DOCOSAHEXAN Yes 1000mg Take 1,000 [facility] OIC 6-07 mg by ity of ACID/EPA 11:23: mouth [place] (FISH OIL 09 daily. Medical ORAL) Branch BIOTIN ORAL Yes Take by Uni vers 6-07 mouth. ity of 11:23: [place] [address] Medical Branch FOLIC ACID Yes Take by Univ ers ORAL 6-07 mouth ity of 11:23: daily. [place] 09 Medical Branch MULTIVIT Yes Take by [facility] &MINERALS/F 6-07 mouth. ity of ERROUS FUM 11:23: [place] (MULTI 09 Medical VITAMIN Branch ORAL) METHYLCELLU 0 Yes [facility] s LOSE (FIBER 6-07 ity of THERAPY 11:23: [place] MISC) 09 Medical Branch DOCUSATE Yes Take by [facility] s SODIUM 6-07 mouth. ity of [...] 6-07 mouth ity of EXTRACT 11:23: daily. [place] (CR[place] Medical ORAL) Branch CALCIUM Yes Take by [facility] ORAL 6-07 mouth ity of 11:23: daily. [place] [facility] DOCOSAHEXAN Yes 1000mg Take 1,000 [facility] OIC 6-07 mg by ity of ACID/EPA 11:23: mouth [place] (FISH OIL 09 daily. Medical ORAL) Branch BIOTIN ORAL Yes Take by Uni vers 6-07 mouth. ity of 11:23: [place] [address] Medical Branch FOLIC ACID Yes Take by Univ ers ORAL 6-07 mouth ity of 11:23: daily. [place] [facility] MULTIVIT Yes Take by Univer s &MINERALS/F 6-07 mouth. ity of ERROUS FUM 11:23: [place] (MULTI 09 Medical VITAMIN Branch ORAL) METHYLCELLU Yes Univer s LOSE (FIBER 6-07 ity of THERAPY 11:23: [place] MISC) Medical Branch DOCUSATE Yes Take by [facility] s SODIUM 6-07 mouth. ity of (COLACE 11:23: [place] ORAL) Medical Branch vitamin C Yes 1000mg Take 1,000 [facility] with derrell 6-07 mg by ity of hips 11:23: mouth [place] (VITAMIN C) 09 daily. Medica l 1,000 mg Branch tablet cholecalcif Yes 1000U Take 1,000 [facility] edmar, 6-07 Units by ity of vitamin D3, 11:23: mouth [place] (VITAMIN 09 daily. Medical D3) 1,000 Branch unit tablet CRANBERRY Yes Take by [facility] rs FRUIT 6-07 mouth ity of EXTRACT 11:23: daily. [place] ([place] Medical ORAL) Branch CALCIUM Yes Take by [facility] ORAL 6-07 mouth ity of 11:23: daily. [place] [facility] DOCOSAHEXAN Yes 1000mg Take 1,000 [facility] OIC 6-07 mg by ity of ACID/EPA 11:23: mouth [place] (FISH OIL 09 daily. Medical ORAL) Branch BIOTIN ORAL Yes Take by Uni vers 6-07 mouth. ity of 11:23: [place] [address] Medical Branch FOLIC ACID Yes Take by Univ ers ORAL 6-07 mouth ity of 11:23: daily. [place] [address] Medical Branch MULTIVIT Yes Take by Univer s &MINERALS/F 6-07 mouth. ity of ERROUS FUM 11:23: [place] (MULTI 09 Medical VITAMIN Branch ORAL) METHYLCELLU Yes Univer s LOSE (FIBER 6-07 ity of THERAPY 11:23: [facility]) 09 Medical Branch DOCUSATE Yes Take [...] by ity of vitamin D3, 11:23: mouth [place] (VITAMIN 09 daily. Medical D3) 1,000 Branch unit tablet CRANBERRY Yes Take by [facility] FRUIT 6-07 mouth ity of EXTRACT 11:23: daily. [place] (CRANBERRY 09 Medical ORAL) Branch CALCIUM Yes Take by [facility] ORAL 6-07 mouth ity of 11:23: daily. [place] [address] Medical Branch DOCOSAHEXAN Yes 1000mg Take 1,000 [facility] OIC 6-07 mg by ity of ACID/EPA 11:23: mouth [place] (FISH OIL 09 daily. Medical ORAL) Branch BIOTIN ORAL Yes Take by Uni vers 6-07 mouth. ity of 11:23: [place] [address] Medical Branch FOLIC ACID Yes Take by [facility] ers ORAL 6-07 mouth ity of 11:23: daily. [place] [address] Medical Branch MULTIVIT Yes Take by Univer s &MINERALS/F 6-07 mouth. ity of ERROUS FUM 11:23: [place] (MULTI 09 Medical VITAMIN Branch ORAL) METHYLCELLU Yes Univer s LOSE (FIBER 6-07 ity of THERAPY 11:23: [place] MIS) 09 Medical Branch DOCUSATE Yes Take by [facility] s SODIUM 6-07 mouth. ity of [...] 6-07 mouth ity of EXTRACT 11:23: daily. [place] ([place]AN[place] Medical ORAL) Branch CALCIUM Yes Take by [facility] ORAL 6-07 mouth ity of 11:23: daily. [place] [facility] DOCOSAHEXAN Yes 1000mg Take 1,000 [facility] OIC 6-07 mg by ity of ACID/EPA 11:23: mouth [place] (FISH OIL 09 daily. Medical ORAL) Branch BIOTIN ORAL Yes Take by [facility] vers 6-07 mouth. ity of 11:23: Medical Branch FOLIC ACID Yes Take by [facility] ers ORAL 6-07 mouth ity of 11:23: daily. [place] [facility] MULTIVIT Yes Take by Univer s &MINERALS/F 6-07 mouth. ity of ERROUS FUM 11:23: [place] (MULTI 09 Medical VITAMIN Branch ORAL) METHYLCELLU Yes Univer s LOSE (FIBER 6-07 ity of THERAPY 11:23: [place] MISC) 09 Medical Branch DOCUSATE Yes Take [...] 6-07 mouth ity of EXTRACT 11:23: daily. [place] (CRANBERRY 09 Medical ORAL) Branch CALCIUM Yes [...] 6-07 mouth. ity of ERROUS FUM 11:23: [place] (MULTI 09 Medical VITAMIN Branch ORAL) METHYLCELLU Yes [facility] LOSE (FIBER 6-07 ity of THERAPY 11:23: [place] MISC) 09 Medical Branch DOCUSATE Yes Take by [facility] SODIUM 6-07 mouth. ity of (COLACE [...] unit tablet CRANBERRY Yes Take by [facility] FRUIT 6-07 mouth ity of EXTRACT 11:23: daily. [place] (CRAN[place]ERR[place] Medical ORAL) Branch CALCIUM Yes Take [...] LOSE (FIBER 6-07 ity of THERAPY 11:23: [facility]) Medical Branch DOCUSATE Yes Take by [...] by ity of vitamin D3, 11:23: mouth [place] (VITAMIN 09 daily. Medical D3) 1,000 Branch unit tablet CRANBERRY Yes Take by [facility] FRUIT 6-07 mouth ity of EXTRACT 11:23: daily. [place] ([place] Medical ORAL) Branch CALCIUM Yes Take by [facility] ORAL 6-07 mouth ity of 11:23: daily. [place] [facility] DOCOSAHEXAN Yes 1000mg Take 1,000 [facility] OIC 6-07 mg by ity of ACID/EPA 11:23: mouth [place] (FISH OIL 09 daily. Medical ORAL) Branch BIOTIN ORAL Yes Take by Uni vers 6-07 mouth. ity of 11:23: [place] [address] Medical Branch FOLIC ACID Yes Take by Univ ers ORAL 6-07 mouth ity of 11:23: daily. [place] [address] Medical Branch MULTIVIT Yes Take by Univer s &MINERALS/F 6-07 mouth. ity of ERROUS FUM 11:23: [place] (MULTI 09 Medical VITAMIN Branch ORAL) METHYLCELLU 0 Yes Univer s LOSE (FIBER 6-07 ity of THERAPY 11:23: [facility]) 09 Medical Branch DOCUSATE Yes Take [...] by ity of vitamin D3, 11:23: mouth [place] (VITAMIN 09 daily. Medical D3) 1,000 Branch unit tablet CRANBERRY 0 Yes Take by [facility] FRUIT 6-07 mouth ity of EXTRACT 11:23: daily. [place] ([place] Medical ORAL) Branch CALCIUM Yes Take by [facility] ORAL 6-07 mouth ity of 11:23: daily. [place] [facility] DOCOSAHEXAN Yes 1000mg Take 1,000 [facility] OIC 6-07 mg by ity of ACID/EPA 11:23: mouth [place] (FISH OIL 09 daily. Medical ORAL) Branch BIOTIN ORAL Yes Take by Uni vers 6-07 mouth. ity of 11:23: [place] [facility] FOLIC ACID Yes Take by Univ ers ORAL 6-07 mouth ity of 11:23: daily. [place] [facility] MULTIVIT Yes Take by [facility] &MINERALS/F 6-07 mouth. ity of ERROUS FUM 11:23: [place] (MULTI 09 Medical VITAMIN Branch ORAL) METHYLCELLU 0 Yes [facility] LOSE (FIBER 6-07 ity of THERAPY 11:23: [place] MISC) 09 Medical Branch DOCUSATE Yes Take by [facility] SODIUM 6-07 mouth. ity of (COLACE 11:23: [place] ORAL) 09 Medical Branch vitamin C Yes 1000mg Take 1,000 [facility] with derrell 6-07 mg by ity of hips 11:23: mouth [place] (VITAMIN C) 09 daily. Medica l 1,000 mg Branch tablet cholecalcif 0 Yes 1000U Take 1,000 [facility] edmar, 6-07 Units by ity of vitamin D3, 11:23: mouth [place] (VITAMIN 09 daily. Medical D3) 1,000 Branch unit tablet CRANBERRY 2021-0 Yes Take by [facility] FRUIT 6-07 mouth ity of EXTRACT 11:23: daily. [place] ([place]AN[place]Y Medical ORAL) Branch CALCIUM 0 Yes Take by [facility] ORAL 6-07 mouth ity of 11:23: daily. [place] [facility] DOCOSAHEXAN 2022-0 Yes 1000mg Take 1,000 [facility] OIC 6-07 mg by ity of ACID/EPA 11:23: mouth [place] (FISH OIL 09 daily. Medical ORAL) Branch BIOTIN ORAL Yes Take by Uni vers 6-07 mouth. ity of 11:23: Medical Branch FOLIC ACID Yes Take by Univ ers ORAL 6-07 mouth ity of 11:23: daily. [place] [facility] MULTIVIT Yes Take by Univer s &MINERALS/F 6-07 mouth. ity of ERROUS FUM 11:23: [place] (MULTI 09 Medical VITAMIN Branch ORAL) METHYLCELLU Yes [facility] LOSE (FIBER 6-07 ity of THERAPY 11:23: [place] MISC) 09 Medical Branch DOCUSATE Yes Take by [facility] SODIUM 6-07 mouth. ity of (COLACE 11:23: [place] ORAL) 09 Medical Branch vitamin C Yes 1000mg Take 1,000 [facility] with derrell 6-07 mg by ity of hips 11:23: mouth [place] (VITAMIN C) 09 daily. Medica l 1,000 mg Branch tablet cholecalcif Yes 1000U Take 1,000 [facility] edmar, 6-07 Units by ity of vitamin D3, 11:23: mouth [place] (VITAMIN 09 daily. Medical D3) 1,000 Branch unit tablet CRANBERRY Yes Take by [facility] rs FRUIT 6-07 mouth ity of EXTRACT 11:23: daily. [place] (CRANBERRY Medical ORAL) Branch CALCIUM Yes Take by [facility] ORAL 6-07 mouth ity of 11:23: daily. [place] [facility] Branch DOCOSAHEXAN Yes 1000mg Take 1,000 [facility] OIC 6-07 mg by ity of ACID/EPA 11:23: mouth [place] (FISH OIL 09 daily. Medical ORAL) Branch BIOTIN ORAL Yes Take by [facility] vers 6-07 mouth. ity of 11:23: Medical Branch FOLIC ACID 0 Yes Take by Univ ers ORAL 6-07 mouth ity of 11:23: daily. [place] [facility] MULTIVIT Yes Take by Univer s &MINERALS/F 6-07 mouth. ity of ERROUS FUM 11:23: [place] (MULTI 09 Medical VITAMIN Branch ORAL) METHYLCELLU 2022-0 Yes [facility] LOSE (FIBER 6-07 ity of THERAPY 11:23: [facility]) 09 Medical Branch DOCUSATE Yes Take by [facility] SODIUM 6-07 mouth. ity of (COLACE [...] Branch unit tablet CRANBERRY Yes Take by [facility] rs FRUIT 6-07 mouth ity of EXTRACT 11:23: daily. [place] (CRANBERRY Medical ORAL) Branch CALCIUM Yes Take by [facility] ORAL 6-07 mouth ity of 11:23: daily. [place] [facility] Branch DOCOSAHEXAN Yes 1000mg Take 1,000 [facility] OIC 6-07 mg by ity of ACID/EPA 11:23: mouth [place] (FISH OIL 09 daily. Medical ORAL) Branch BIOTIN ORAL Yes Take by [facility] vers 6-07 mouth. ity of 11:23: [place] [facility] FOLIC ACID Yes Take by Univ ers ORAL 6-07 mouth ity of 11:23: daily. [place] [facility] MULTIVIT Yes Take by [facility] &MINERALS/F 6-07 mouth. ity of ERROUS FUM 11:23: [place] (MULTI 09 Medical VITAMIN Branch ORAL) METHYLCELLU Yes Univer s LOSE (FIBER 6-07 ity of THERAPY 11:23: [facility]) 09 Medical Branch DOCUSATE Yes Take by [facility] SODIUM 6-07 mouth. ity of (COLACE [...] unit tablet CRANBERRY Yes Take by [facility] FRUIT 6-07 mouth ity of EXTRACT 11:23: daily. [place] (CRANBERRY Medical ORAL) Branch CALCIUM Yes Take by [facility] ORAL 6-07 mouth ity of 11:23: daily. [place] [facility] DOCOSAHEXAN Yes 1000mg Take 1,000 [facility] OIC 6-07 mg by ity of ACID/EPA 11:23: mouth [place] (FISH OIL 09 daily. Medical ORAL) Branch BIOTIN ORAL Yes Take by [facility] vers 6-07 mouth. ity of 11:23: Medical Branch FOLIC ACID Yes Take by [facility] ers ORAL 6-07 mouth ity of 11:23: daily. [place] [facility] MULTIVIT Yes Take by [facility] &MINERALS/F 6-07 mouth. ity of ERROUS FUM 11:23: [place] (MULTI 09 Medical VITAMIN Branch ORAL) METHYLCELLU Yes Univer s LOSE (FIBER 6-07 ity of THERAPY 11:23: [place] MISC) 09 Medical Branch DOCUSATE Yes Take by [facility] SODIUM 6-07 mouth. ity of (COLACE 11:23: [place] ORAL) 09 Medical Branch vitamin C Yes 1000mg Take 1,000 [facility] with derrell 6-07 mg by ity of hips 11:23: mouth [place] (VITAMIN C) 09 daily. Medica l 1,000 mg Branch tablet cholecalcif Yes 1000U Take 1,000 [facility] edmar, 6-07 Units by ity of vitamin D3, 11:23: mouth [place] (VITAMIN 09 daily. Medical D3) 1,000 Branch unit tablet CRANBERRY Yes Take by [facility] FRUIT 6-07 mouth ity of EXTRACT 11:23: daily. [place] (CRANBERRY Medical ORAL) Branch CALCIUM Yes Take by [facility] ORAL 6-07 mouth ity of 11:23: daily. [place] [facility] DOCOSAHEXAN Yes 1000mg Take 1,000 [facility] OIC 6-07 mg by ity of ACID/EPA 11:23: mouth [place] (FISH OIL 09 daily. Medical ORAL) Branch BIOTIN ORAL Yes Take by Uni vers 6-07 mouth. ity of 11:23: Medical Branch FOLIC ACID Yes Take by Univ ers ORAL 6-07 mouth ity of 11:23: daily. [place] [facility] MULTIVIT Yes Take by Univer s &MINERALS/F 6-07 mouth. ity of ERROUS FUM 11:23: [place] (MULTI 09 Medical VITAMIN Branch ORAL) METHYLCELLU 0 Yes Univer s LOSE (FIBER 6-07 ity of THERAPY 11:23: [facility]) 09 Medical Branch DOCUSATE Yes Take by Univer s SODIUM 6-07 mouth. ity of (COLACE 11:23: [place] ORAL) 09 Medical Branch vitamin C Yes 1000mg Take 1,000 [facility] with derrell 6-07 mg by ity of hips 11:23: mouth [place] (VITAMIN C) 09 daily. Medica l 1,000 mg Branch tablet cholecalcif Yes 1000U Take 1,000 [facility] edmar, 6-07 Units by ity of vitamin D3, 11:23: mouth [place] (VITAMIN 09 daily. Medical D3) 1,000 Branch unit tablet CRANBERRY Yes Take by Unive rs FRUIT 6-07 mouth ity of EXTRACT 11:23: daily. [place] (CRANBERRY Medical ORAL) Branch CALCIUM Yes Take by [facility] ORAL 6-07 mouth ity of 11:23: daily. [place] [facility] DOCOSAHEXAN Yes 1000mg Take 1,000 [facility] OIC 6-07 mg by ity of ACID/EPA 11:23: mouth [place] (FISH OIL 09 daily. Medical ORAL) Branch BIOTIN ORAL Yes Take by Uni vers 6-07 mouth. ity of 11:23: Medical Branch FOLIC ACID Yes Take by Univ ers ORAL 6-07 mouth ity of 11:23: daily. [place] [facility] MULTIVIT Yes Take by Univer s &MINERALS/F 6-07 mouth. ity of ERROUS FUM 11:23: [place] (MULTI 09 Medical VITAMIN Branch ORAL) METHYLCELLU 0 Yes Univer s LOSE (FIBER 6-07 ity of THERAPY 11:23: [facility]) 09 Medical Branch DOCUSATE 2022-0 Yes Take by [facility] s SODIUM 6-07 mouth. ity of (COLACE [...] Branch unit tablet CRANBERRY Yes Take by [facility] rs FRUIT 6 mouth ity of EXTRACT 11:23: daily. [place] (CRANBERRY 09 Medical ORAL) Branch CALCIUM Yes Take by [facility] ORAL 6 mouth ity of 11:23: daily. [place] 09 Medical Branch DOCOSAHEXAN Yes 1000mg Take 1,000 [facility] OIC 6-07 mg by ity of ACID/EPA 11:23: mouth [place] (FISH OIL 09 daily. Medical ORAL) Branch BIOTIN ORAL Yes Take by Uni vers 6- mouth. ity of 11:23: [place] 09 Medical Branch FOLIC ACID Yes Take by [facility] ers ORAL 6- mouth ity of 11:58: daily. [place] [address] Medical Branch MULTIVIT Yes Take by [facility] s &MINERALS/F 6- mouth. ity of ERROUS FUM 11:58: [place] (MULTI 16 Medical VITAMIN Branch ORAL) METHYLCELLU Yes [facility] s LOSE (FIBER 6- ity of THERAPY 11:58: [facility]) 16 Medical Branch DOCUSATE Yes Take by [facility] s SODIUM 6-01 mouth. ity of (COLACE 11:58: [place] ORAL) 16 Medical Branch vitamin C Yes 1000mg Take 1,000 [facility] with derrell 6-01 mg by ity of hips 11:58: mouth [place] (VITAMIN C) 16 daily. Medica l 1,000 mg Branch tablet cholecalcif Yes 1000U Take 1,000 [facility] edmar, 6-01 Units by ity of vitamin D3, 11:58: mouth [place] (VITAMIN 16 daily. Medical D3) 1,000 Branch unit tablet CRANBERRY Yes Take by [facility] rs FRUIT 6- mouth ity of EXTRACT 11:58: daily. [place] (CRANBERRY 16 Medical ORAL) [place] CALCIUM Yes Take by Univers ORAL 6- mouth ity of 11:58: daily. [address] DOCOSAHEXAN Yes 1000mg Take 1,000 [facility] OIC 6- mg by ity of ACID/EPA 11:58: mouth [place] (FISH OIL 16 daily. Medical ORAL) Branch BIOTIN ORAL Yes Take by Uni vers 6- mouth. ity of 11:58: [address] metformin Yes [id number] 500mg Take 1 U nivers ER 500 mg 5-31 tablet by ity o f 24 hr 00:00: mouth [place] tablet 00 daily with Medical breakfast. Branch STOP REGULAR METFORMIN. metformin Yes [id number] 500mg Take 1 U nivers ER 500 mg 5-31 tablet by ity o f 24 hr 00:00: mouth [place] tablet 00 daily with Medical breakfast. Branch STOP REGULAR METFORMIN. metformin Yes [id number] 500mg Take 1 U nivers ER 500 mg 5-31 tablet by ity o f 24 hr 00:00: mouth [place] tablet 00 daily with Medical breakfast. Branch STOP REGULAR METFORMIN. metformin Yes [id number] 500mg Take 1 U nivers ER 500 mg 5-31 tablet by ity o f 24 hr 00:00: mouth [place] tablet 00 daily with Medical breakfast. Branch STOP REGULAR METFORMIN. metformin Yes [id number] 500mg Take 1 U nivers ER 500 mg 5-31 tablet by ity o f 24 hr 00:00: mouth [place] tablet 00 daily with Medical breakfast. Branch STOP REGULAR METFORMIN. metformin Yes [id number] 500mg Take 1 U nivers ER 500 mg 5-31 tablet by ity o f 24 hr 00:00: mouth [place] tablet 00 daily with Medical breakfast. Branch STOP REGULAR METFORMIN. metformin 0 Yes [id number] 500mg Take 1 U nivers ER 500 mg 5-31 tablet by ity o f 24 hr 00:00: mouth [place] tablet 00 daily with Medical breakfast. Branch STOP REGULAR METFORMIN. metformin 0 Yes [id number] 500mg Take 1 U nivers ER 500 mg 5-31 tablet by ity o f 24 hr 00:00: mouth [place] tablet 00 daily with Medical breakfast. Branch STOP REGULAR METFORMIN. metformin 2021-0 Yes [id number] 500mg Take 1 U nivers ER 500 mg 5-31 tablet by ity o f 24 hr 00:00: mouth [place] tablet 00 daily with Medical breakfast. Branch STOP REGULAR METFORMIN. metformin 2021-0 Yes [id number] 500mg Take 1 U nivers ER 500 mg 5-31 tablet by ity o f 24 hr 00:00: mouth [place] tablet 00 daily with Medical breakfast. Branch STOP REGULAR METFORMIN. metformin 2021-0 Yes [id number] 500mg Take 1 U nivers ER 500 mg 5-31 tablet by ity o f 24 hr 00:00: mouth [place] tablet 00 daily with Medical breakfast. Branch STOP REGULAR METFORMIN. metformin 2021-0 Yes [id number] 500mg Take 1 U nivers ER 500 mg 5-31 tablet by ity o f 24 hr 00:00: mouth [place] tablet 00 daily with Medical breakfast. Branch STOP REGULAR METFORMIN. metformin 2021-0 Yes [id number] 500mg Take 1 U nivers ER 500 mg 5-31 tablet by ity o f 24 hr 00:00: mouth [place] tablet 00 daily with Medical breakfast. Branch STOP REGULAR METFORMIN. metformin 2021-0 Yes [id number] 500mg Take 1 U nivers ER 500 mg 5-31 tablet by ity o f 24 hr 00:00: mouth [place] tablet 00 daily with Medical breakfast. Branch STOP REGULAR METFORMIN. metformin 2021-0 Yes [id number] 500mg Take 1 U nivers ER 500 mg 5-31 tablet by ity o f 24 hr 00:00: mouth [place] tablet 00 daily with Medical breakfast. Branch STOP REGULAR METFORMIN. metformin 2021-0 Yes [id number] 500mg Take 1 U nivers ER 500 mg 5-31 tablet by ity o f 24 hr 00:00: mouth [place] tablet 00 daily with Medical breakfast. Branch STOP REGULAR METFORMIN. metformin 2021-0 Yes [id number] 500mg Take 1 U nivers ER 500 mg 5-31 tablet by ity o f 24 hr 00:00: mouth [place] tablet 00 daily with Medical breakfast. Branch STOP REGULAR METFORMIN. metformin 2021-0 Yes [id number] 500mg Take 1 U nivers ER 500 mg 5-31 tablet by ity o f 24 hr 00:00: mouth [place] tablet 00 daily with Medical breakfast. Branch STOP REGULAR METFORMIN. metformin 2021-0 Yes [id number] 500mg Take 1 U nivers ER 500 mg 5-31 tablet by ity o f 24 hr 00:00: mouth [place] tablet 00 daily with Medical breakfast. Branch STOP REGULAR METFORMIN. metformin 2021-0 Yes [id number] 500mg Take 1 U nivers ER 500 mg 5-31 tablet by ity o f 24 hr 00:00: mouth [place] tablet 00 daily with Medical breakfast. Branch STOP REGULAR METFORMIN. metformin 2021-0 Yes [id number] 500mg Take 1 U nivers ER 500 mg 5-31 tablet by ity o f 24 hr 00:00: mouth [place] tablet 00 daily with Medical breakfast. Branch STOP REGULAR METFORMIN. metformin 2021-0 Yes [id number] 500mg Take 1 U nivers ER 500 mg 5-31 tablet by ity o f 24 hr 00:00: mouth [place] tablet 00 daily with Medical breakfast. Branch STOP REGULAR METFORMIN. metformin 2021-0 Yes [id number] 500mg Take 1 U nivers ER 500 mg 5-31 tablet by ity o f 24 hr 00:00: mouth [place] tablet 00 daily with Medical breakfast. Branch STOP REGULAR METFORMIN. metformin 2021-0 Yes [id number] 500mg Take 1 U nivers ER 500 mg 5-31 tablet by ity o f 24 hr 00:00: mouth [place] tablet 00 daily with Medical breakfast. Branch STOP REGULAR METFORMIN. metformin 2021-0 Yes [id number] 500mg Take 1 U nivers ER 500 mg 5-31 tablet by ity o f 24 hr 00:00: mouth [place] tablet 00 daily with Medical breakfast. Branch STOP REGULAR METFORMIN. metformin 2021-0 Yes [id number] 500mg Take 1 U nivers ER 500 mg 5-31 tablet by ity o f 24 hr 00:00: mouth [place] tablet 00 daily with Medical breakfast. Branch STOP REGULAR METFORMIN. metformin 2021-0 Yes [id number] 500mg Take 1 U nivers ER 500 mg 5-31 tablet by ity o f 24 hr 00:00: mouth [place] tablet 00 daily with Medical breakfast. Branch STOP REGULAR METFORMIN. metformin 2021-0 Yes [id number] 500mg Take 1 U nivers ER 500 mg 5-31 tablet by ity o f 24 hr 00:00: mouth [place] tablet 00 daily with Medical breakfast. Branch STOP REGULAR METFORMIN. metformin 2021-0 Yes [id number] 500mg Take 1 U nivers ER 500 mg 5-31 tablet by ity o f 24 hr 00:00: mouth [place] tablet 00 daily with Medical breakfast. Branch STOP REGULAR METFORMIN. metformin 2021-0 Yes [id number] 500mg Take 1 U nivers ER 500 mg 5-31 tablet by ity o f 24 hr 00:00: mouth [place] tablet 00 daily with Medical breakfast. Branch STOP REGULAR METFORMIN. metformin 2021-0 Yes [id number] 500mg Take 1 U nivers ER 500 mg 5-31 tablet by ity o f 24 hr 00:00: mouth [place] tablet 00 daily with Medical breakfast. Branch STOP REGULAR METFORMIN. metformin 2021-0 Yes [id number] 500mg Take 1 U nivers ER 500 mg 5-31 tablet by ity o f 24 hr 00:00: mouth [place] tablet 00 daily with Medical breakfast. Branch STOP REGULAR METFORMIN. metformin 2021-0 Yes [id number] 500mg Take 1 U nivers ER 500 mg 5-31 tablet by ity o f 24 hr 00:00: mouth [place] tablet 00 daily with Medical breakfast. Branch STOP REGULAR METFORMIN. metformin 2021-0 Yes [id number] 500mg Take 1 U nivers ER 500 mg 5-31 tablet by ity o f 24 hr 00:00: mouth [place] tablet 00 daily with Medical breakfast. Branch STOP REGULAR METFORMIN. metformin 2021-0 Yes [id number] 500mg Take 1 U nivers ER 500 mg 5-31 tablet by ity o f 24 hr 00:00: mouth [place] tablet 00 daily with Medical breakfast. Branch STOP REGULAR METFORMIN. metformin 2021-0 Yes [id number] 500mg Take 1 U nivers ER 500 mg 5-31 tablet by ity o f 24 hr 00:00: mouth [place] tablet 00 daily with Medical breakfast. Branch STOP REGULAR METFORMIN. metformin 2021-0 Yes [id number] 500mg Take 1 U nivers ER 500 mg 5-31 tablet by ity o f 24 hr 00:00: mouth [place] tablet 00 daily with Medical breakfast. Branch STOP REGULAR METFORMIN. metformin 2021-0 Yes [id number] 500mg Take 1 U nivers ER 500 mg 5-31 tablet by ity o f 24 hr 00:00: mouth [place] tablet 00 daily with Medical breakfast. Branch STOP REGULAR METFORMIN. metformin 2021-0 Yes [id number] 500mg Take 1 U nivers ER 500 mg 5-31 tablet by ity o f 24 hr 00:00: mouth [place] tablet 00 daily with Medical breakfast. Branch STOP REGULAR METFORMIN. metformin 2021-0 Yes [id number] 500mg Take 1 U nivers ER 500 mg 5-31 tablet by ity o f 24 hr 00:00: mouth [place] tablet 00 daily with Medical breakfast. Branch STOP REGULAR METFORMIN. metformin 2021-0 Yes [id number] 500mg Take 1 U nivers ER 500 mg 5-31 tablet by ity o f 24 hr 00:00: mouth [place] tablet 00 daily with Medical breakfast. Branch STOP REGULAR METFORMIN. metformin 2021-0 Yes [id number] 500mg Take 1 U nivers ER 500 mg 5-31 tablet by ity o f 24 hr 00:00: mouth [place] tablet 00 daily with Medical breakfast. Branch STOP REGULAR METFORMIN. metformin 2021-0 Yes [id number] 500mg Take 1 U nivers ER 500 mg 5-31 tablet by ity o f 24 hr 00:00: mouth [place] tablet 00 daily with Medical breakfast. Branch STOP REGULAR METFORMIN. metformin 0 Yes [id number] 500mg Take 1 U nivers ER 500 mg 5-31 tablet by ity o f 24 hr 00:00: mouth [place] tablet 00 daily with Medical breakfast. Branch STOP REGULAR METFORMIN. metformin 2021-0 Yes [id number] 500mg Take 1 U nivers ER 500 mg 5-31 tablet by ity o f 24 hr 00:00: mouth [place] tablet 00 daily with Medical breakfast. Branch STOP REGULAR METFORMIN. metformin 2021-0 Yes [id number] 500mg Take 1 U nivers ER 500 mg 5-31 tablet by ity o f 24 hr 00:00: mouth [place] tablet 00 daily with Medical breakfast. Branch STOP REGULAR METFORMIN. metformin 2021-0 Yes [id number] 500mg Take 1 U nivers ER 500 mg 5-31 tablet by ity o f 24 hr 00:00: mouth [place] tablet 00 daily with Medical breakfast. Branch STOP REGULAR METFORMIN. metformin 2021-0 Yes [id number] 500mg Take 1 U nivers ER 500 mg 5-31 tablet by ity o f 24 hr 00:00: mouth [place] tablet 00 daily with Medical breakfast. Branch STOP REGULAR METFORMIN. metformin 2021-0 2022- No [id number] 500mg Take 1 [facility] ER 500 mg 5-31 10-13 tablet by ity of 24 hr 00:00: 00:00 mouth [place] tablet 00 :00 daily with Medical breakfast. Branch STOP REGULAR METFORMIN. ibuprofen 2022-0 Yes [id number] 600mg Take 1 [facility] 600 mg 5-19 [id number] tablet by ity of tablet 00:00: mouth [place] 00 every 6 Medical (six) Branch hours as needed for Pain (scale 4-6). ibuprofen 2022-0 Yes [id number] 600mg Take 1 [facility] 600 mg 5-19 [id number] tablet by ity of tablet 00:00: mouth [place] 00 every 6 Medical (six) Branch hours as needed for Pain (scale 4-6). ibuprofen 2022-0 Yes [id number] 600mg Take 1 [facility] 600 mg 5-19 [id number] tablet by ity of tablet 00:00: mouth [place] 00 every 6 Medical (six) Branch hours as needed for Pain (scale 4-6). ibuprofen 2-0 Yes [id number] 600mg Take 1 [facility] 600 mg 5-19 [id number] tablet by ity of tablet 00:00: mouth [place] 00 every 6 Medical (six) Branch hours as needed for Pain (scale 4-6). ibuprofen 2022-0 Yes [id number] 600mg Take 1 [facility] 600 mg 5-19 [id number] tablet by ity of tablet 00:00: mouth [place] 00 every 6 Medical (six) Branch hours as needed for Pain (scale 4-6). ibuprofen 2022-0 Yes [id number] 600mg Take 1 [facility] 600 mg 5-19 [id number] tablet by ity of tablet 00:00: mouth [place] 00 every 6 Medical (six) Branch hours as needed for Pain (scale 4-6). ibuprofen 2022-0 Yes [id number] 600mg Take 1 [facility] 600 mg 5-19 [id number] tablet by ity of tablet 00:00: mouth [place] 00 every 6 Medical (six) Branch hours as needed for Pain (scale 4-6). ibuprofen 2022-0 Yes [id number] 600mg Take 1 [facility] 600 mg 5-19 [id number] tablet by ity of tablet 00:00: mouth [place] 00 every 6 Medical (six) Branch hours as needed for Pain (scale 4-6). ibuprofen 2022-0 Yes [id number] 600mg Take 1 [facility] 600 mg 5-19 [id number] tablet by ity of tablet 00:00: mouth [place] 00 every 6 Medical (six) Branch hours as needed for Pain (scale 4-6). ibuprofen 2022-0 Yes [id number] 600mg Take 1 [facility] 600 mg 5-19 [id number] tablet by ity of tablet 00:00: mouth [place] 00 every 6 Medical (six) Branch hours as needed for Pain (scale 4-6). ibuprofen 2022-0 Yes [id number] 600mg Take 1 [facility] 600 mg 5-19 [id number] tablet by ity of tablet 00:00: mouth [place] 00 every 6 Medical (six) Branch hours as needed for Pain (scale 4-6). ibuprofen 2022-0 Yes [id number] 600mg Take 1 [facility] 600 mg 5-19 [id number] tablet by ity of tablet 00:00: mouth [place] 00 every 6 Medical (six) Branch hours as needed for Pain (scale 4-6). ibuprofen 2022-0 Yes [id number] 600mg Take 1 [facility] 600 mg 5-19 [id number] tablet by ity of tablet 00:00: mouth [place] 00 every 6 Medical (six) Branch hours as needed for Pain (scale 4-6). ibuprofen 2022-0 Yes [id number] 600mg Take 1 [facility] 600 mg 5-19 [id number] tablet by ity of tablet 00:00: mouth [place] 00 every 6 Medical (six) Branch hours as needed for Pain (scale 4-6). ibuprofen 2022-0 Yes [id number] 600mg Take 1 [facility] 600 mg 5-19 [id number] tablet by ity of tablet 00:00: mouth [place] 00 every 6 Medical (six) Branch hours as needed for Pain (scale 4-6). ibuprofen 2022-0 Yes [id number] 600mg Take 1 [facility] 600 mg 5-19 [id number] tablet by ity of tablet 00:00: mouth [place] 00 every 6 Medical (six) Branch hours as needed for Pain (scale 4-6). ibuprofen 2022-0 Yes [id number] 600mg Take 1 [facility] 600 mg 5-19 [id number] tablet by ity of tablet 00:00: mouth [place] 00 every 6 Medical (six) Branch hours as needed for Pain (scale 4-6). ibuprofen 2022-0 Yes [id number] 600mg Take 1 [facility] 600 mg 5-19 [id number] tablet by ity of tablet 00:00: mouth [place] 00 every 6 Medical (six) Branch hours as needed for Pain (scale 4-6). ibuprofen 2022-0 Yes [id number] 600mg Take 1 [facility] 600 mg 5-19 [id number] tablet by ity of tablet 00:00: mouth [place] 00 every 6 Medical (six) Branch hours as needed for Pain (scale 4-6). ibuprofen 2022-0 Yes [id number] 600mg Take 1 [facility] 600 mg 5-19 [id number] tablet by ity of tablet 00:00: mouth [place] 00 every 6 Medical (six) Branch hours as needed for Pain (scale 4-6). ibuprofen 2022-0 Yes [id number] 600mg Take 1 [facility] 600 mg 5-19 [id number] tablet by ity of tablet 00:00: mouth [place] 00 every 6 Medical (six) Branch hours as needed for Pain (scale 4-6). ibuprofen 2022-0 Yes [id number] 600mg Take 1 [facility] 600 mg 5-19 [id number] tablet by ity of tablet 00:00: mouth [place] 00 every 6 Medical (six) Branch hours as needed for Pain (scale 4-6). ibuprofen 2022-0 Yes [id number] 600mg Take 1 [facility] 600 mg 5-19 [id number] tablet by ity of tablet 00:00: mouth [place] 00 every 6 Medical (six) Branch hours as needed for Pain (scale 4-6). ibuprofen 2022-0 Yes [id number] 600mg Take 1 [facility] 600 mg 5-19 [id number] tablet by ity of tablet 00:00: mouth [place] 00 every 6 Medical (six) Branch hours as needed for Pain (scale 4-6). ibuprofen 2022-0 Yes [id number] 600mg Take 1 [facility] 600 mg 5-19 [id number] tablet by ity of tablet 00:00: mouth [place] 00 every 6 Medical (six) Branch hours as needed for Pain (scale 4-6). ibuprofen 2022-0 Yes [id number] 600mg Take 1 [facility] 600 mg 5-19 [id number] tablet by ity of tablet 00:00: mouth [place] 00 every 6 Medical (six) Branch hours as needed for Pain (scale 4-6). ibuprofen 2022-0 Yes [id number] 600mg Take 1 [facility] 600 mg 5-19 [id number] tablet by ity of tablet 00:00: mouth [place] 00 every 6 Medical (six) Branch hours as needed for Pain (scale 4-6). ibuprofen 2022-0 Yes [id number] 600mg Take 1 [facility] 600 mg 5-19 [id number] tablet by ity of tablet 00:00: mouth [place] 00 every 6 Medical (six) Branch hours as needed for Pain (scale 4-6). ibuprofen 2022-0 Yes [id number] 600mg Take 1 [facility] 600 mg 5-19 [id number] tablet by ity of tablet 00:00: mouth [place] 00 every 6 Medical (six) Branch hours as needed for Pain (scale 4-6). ibuprofen 2-0 Yes [id number] 600mg Take 1 [facility] 600 mg 5-19 [id number] tablet by ity of tablet 00:00: mouth [place] 00 every 6 Medical (six) Branch hours as needed for Pain (scale 4-6). ibuprofen 2021-0 Yes [id number] 600mg Take 1 [facility] 600 mg 5-19 [id number] tablet by ity of tablet 00:00: mouth [place] 00 every 6 Medical (six) Branch hours as needed for Pain (scale 4-6). ibuprofen 2021-0 Yes [id number] 600mg Take 1 [facility] 600 mg 5-19 [id number] tablet by ity of tablet 00:00: mouth [place] 00 every 6 Medical (six) Branch hours as needed for Pain (scale 4-6). ibuprofen 2021-0 Yes [id number] 600mg Take 1 [facility] 600 mg 5-19 [id number] tablet by ity of tablet 00:00: mouth [place] 00 every 6 Medical (six) Branch hours as needed for Pain (scale 4-6). ibuprofen 2-0 Yes [id number] 600mg Take 1 [facility] 600 mg 5-19 [id number] tablet by ity of tablet 00:00: mouth [place] 00 every 6 Medical (six) Branch hours as needed for Pain (scale 4-6). ibuprofen 2022-0 Yes [id number] 600mg Take 1 [facility] 600 mg 5-19 [id number] tablet by ity of tablet 00:00: mouth [place] 00 every 6 Medical (six) Branch hours as needed for Pain (scale 4-6). ibuprofen 2022-0 Yes [id number] 600mg Take 1 [facility] 600 mg 5-19 [id number] tablet by ity of tablet 00:00: mouth [place] 00 every 6 Medical (six) Branch hours as needed for Pain (scale 4-6). ibuprofen 2022-0 2022- No [id number] 600mg Take 1 [facility] 600 mg 02-11 [id number] tablet by ity o f tablet 00:00: 00:00 mouth [place] 00 :00 every 6 Medical (six) Branch hours as needed for Pain (scale 4-6). ibuprofen 2021- No [id number] 600mg Take 1 [facility] 600 mg 02-11 [id number] tablet by ity o f tablet 00:00: 00:00 mouth [place] 00 :00 every 6 Medical (six) Branch hours as needed for Pain (scale 4-6). ibuprofen 2021- No [id number] 600mg Take 1 [facility] 600 mg 02-11 [id number] tablet by ity o f tablet 00:00: 00:00 mouth [place] 00 :00 every 6 Medical (six) Branch hours as needed for Pain (scale 4-6). topiramate 2021-0 Yes [id number] 50mg Take 2 [facility] 25 mg 5-16 tablets by ity of tablet 00:00: [address] (two) Medical times Branch daily. topiramate 2021-0 Yes [id number] 50mg Take 2 [facility] 25 mg 5-16 tablets by ity of tablet 00:00: [address] (two) Medical times Branch daily. topiramate 2021-0 Yes [id number] 50mg Take 2 [facility] 25 mg 5-16 tablets by ity of tablet 00:00: [address] (two) Medical times Branch daily. topiramate 2021-0 Yes [id number] 50mg Take 2 [facility] 25 mg 5-16 tablets by ity of tablet 00:00: [address] (two) Medical times Branch daily. topiramate 2021-0 Yes [id number] 50mg Take 2 [facility] 25 mg 5-16 tablets by ity of tablet 00:00: [address] (two) Medical times Branch daily. topiramate 2021-0 Yes [id number] 50mg Take 2 [facility] 25 mg 5-16 tablets by ity of tablet 00:00: [address] (two) Medical times Branch daily. topiramate 2021-0 Yes [id number] 50mg Take 2 [facility] 25 mg 5-16 tablets by ity of tablet 00:00: [address] (two) Medical times Branch daily. topiramate 2022-0 Yes [id number] 50mg Take 2 [facility] 25 mg 5-16 tablets by ity of tablet 00:00: mouth 2 (two) Medical times Branch daily. topiramate 2-0 Yes [id number] 50mg Take 2 [facility] 25 mg 5-16 tablets by ity of tablet 00:00: mouth 2 (two) Medical times Branch daily. SUMAtriptan 2-0 Yes [id number] 50mg Take 1 [facility] 50 mg 5-16 tablet by ity of tablet 00:00: mouth as [place] 00 needed for Medical Migraine. Branch topiramate 2021-0 Yes [id number] 50mg Take 2 [facility] 25 mg 5-16 tablets by ity of tablet 00:00: mouth 2 (two) Medical times Branch daily. SUMAtriptan 2-0 Yes [id number] 50mg Take 1 [facility] 50 mg 5-16 tablet by ity of tablet 00:00: mouth as [place] 00 needed for Medical Migraine. Branch topiramate 2021-0 Yes [id number] 50mg Take 2 [facility] 25 mg 5-16 tablets by ity of tablet 00:00: mouth 2 (two) Medical times Branch daily. SUMAtriptan 2-0 Yes [id number] 50mg Take 1 [facility] 50 mg 5-16 tablet by ity of tablet 00:00: mouth as [place] 00 needed for Medical Migraine. Branch topiramate 2-0 Yes [id number] 50mg Take 2 [facility] 25 mg 5-16 tablets by ity of tablet 00:00: mouth 2 (two) Medical times Branch daily. SUMAtriptan 2-0 Yes [id number] 50mg Take 1 [facility] 50 mg 5-16 tablet by ity of tablet 00:00: mouth as [place] 00 needed for Medical Migraine. Branch topiramate 2-0 Yes [id number] 50mg Take 2 [facility] 25 mg 5-16 tablets by ity of tablet 00:00: mouth 2 (two) Medical times Branch daily. SUMAtriptan 2022-0 Yes [id number] 50mg Take 1 [facility] 50 mg 5-16 tablet by ity of tablet 00:00: mouth as [place] 00 needed for Medical Migraine. Branch topiramate 2022-0 Yes [id number] 50mg Take 2 [facility] 25 mg 5-16 tablets by ity of tablet 00:00: mouth 2 (two) Medical times Branch daily. SUMAtriptan 2021-0 Yes [id number] 50mg Take 1 [facility] 50 mg 5-16 tablet by ity of tablet 00:00: mouth as 00 needed for Medical Migraine. Branch topiramate 2021-0 Yes [id number] 50mg Take 2 [facility] 25 mg 5-16 tablets by ity of tablet 00:00: mouth 2 (two) Medical times Branch daily. topiramate 2021-0 Yes [id number] 50mg Take 2 [facility] 25 mg 5-16 tablets by ity of tablet 00:00: mouth 2 (two) Medical times Branch daily. topiramate 2021-0 Yes [id number] 50mg Take 2 [facility] 25 mg 5-16 tablets by ity of tablet 00:00: mouth 2 (two) Medical times Branch daily. topiramate 2021-0 Yes [id number] 50mg Take 2 [facility] 25 mg 5-16 tablets by ity of tablet 00:00: mouth (two) Medical times Branch daily. topiramate 2021-0 Yes [id number] 50mg Take 2 [facility] 25 mg 5-16 tablets by ity of tablet 00:00: mouth 2 (two) Medical times Branch daily. topiramate 2021-0 Yes [id number] 50mg Take 2 [facility] 25 mg 5-16 tablets by ity of tablet 00:00: mouth 2 (two) Medical times Branch daily. topiramate 2021-0 2021- No [id number] 50mg Take 2 [facility] 25 mg 5-16 09-01 tablets by ity of tablet 00:00: 00:00 mouth 2 [place] 00 :00 (two) Medical times Branch daily. SUMAtriptan 2021-0 2021- No [id number] 50mg Take 1 [facility] 50 mg 5-16 [...] PadM 5-08 Dose to ity of 00:00: [facility] [place] 00 before Medical meals. Branch ALCOHOL 2021-0 Yes 1{dose} Apply 1 [facility] ers PADS PadM 5-08 Dose to ity of 00:00: [facility] [place] 00 before Medical meals. Branch ALCOHOL 2021-0 Yes 1{dose} Apply 1 [facility] ers PADS PadM 5-08 Dose to ity of 00:00: [facility] [place] 00 before Medical meals. Branch ALCOHOL 2021-0 Yes 1{dose} Apply 1 [facility] PADS PadM 5-08 Dose to [facility] 00:00: [facility] [place] 00 before Medical meals. Branch ALCOHOL 2021-0 Yes 1{dose} Apply 1 [facility] PADS PadM 5-08 Dose to [facility] 00:00: [facility] [place] 00 before Medical meals. Branch ALCOHOL 2021-0 Yes 1{dose} Apply 1 [facility] PADS PadM 5-08 Dose to ity of 00:00: area(s) [place] 00 before Medical meals. Branch ALCOHOL 2021-0 Yes 1{dose} Apply 1 [facility] PADS PadM 5-08 Dose to [facility] 00:00: [facility] [place] 00 before Medical meals. [...] 5-08 Dose to ity of 00:00: area(s) [place] 00 before Medical meals. Branch ALCOHOL 2021-0 Yes 1{dose} Apply 1 [facility] PADS PadM 5-08 Dose to [facility] of 00:00: [facility] [place] 00 before Medical meals. Branch ALCOHOL 2021-0 Yes 1{dose} Apply 1 [facility] PADS PadM 5-08 Dose to [facility] of 00:00: [facility] [place] 00 before Medical meals. Branch ALCOHOL 0 Yes 1{dose} Apply 1 [facility] PADS PadM 5-08 Dose to [facility] of 00:00: [facility] [place] 00 before Medical meals. Branch ALCOHOL 0 Yes 1{dose} Apply 1 [facility] PADS PadM 5-08 Dose to [facility] of 00:00: [facility] [place] 00 before Medical meals. Branch ALCOHOL Yes 1{dose} Apply 1 [facility] PADS PadM 5-08 Dose to [facility] of 00:00: [facility] [place] 00 before Medical meals. Branch ALCOHOL Yes 1{dose} Apply 1 [facility] PADS PadM 5-08 Dose to [facility] of 00:00: [facility] [place] 00 before Medical meals. Branch ALCOHOL Yes 1{dose} Apply 1 [facility] PADS PadM 5-08 Dose to [facility] of 00:00: [facility] [place] 00 before Medical meals. Branch ALCOHOL Yes 1{dose} Apply 1 [facility] PADS PadM 5-08 Dose to [facility] of 00:00: [facility] [place] 00 before Medical meals. Branch ALCOHOL Yes 1{dose} Apply 1 [facility] PADS PadM 5-08 Dose to [facility] of 00:00: [facility] [place] 00 before Medical meals. Branch ALCOHOL 2021- No 1{dose} Apply 1 [facility] vers PADS PadM 5-08 -22 Dose to ity of 00:00: 00:00 [facility] [place] 00 :00 before Medical meals. Branch ALCOHOL 2021- No 1{dose} Apply 1 [facility] vers PADS PadM 5-08 -22 Dose to ity of 00:00: 00:00 [facility] [place] 00 :00 before Medical meals. Branch ALCOHOL 2021- No 1{dose} Apply 1 [facility] vers PADS PadM 5-08 -22 Dose to ity of 00:00: 00:00 area(s) [place] 00 :00 before Medical meals. Branch pregabalin 2021-0 Yes [id number] 150mg Take 1 [facility] 150 mg 4-29 capsule by [facility] of capsule 00:00: mouth 3 (three) Medical times Branch daily. busPIRone 2021-0 Yes [id number] 20mg Take 2 [facility] 10 mg 4-29 tablets by it[facility] of tablet 00:00: mouth (two) Medical times Branch daily. citalopram 2021-0 Yes [id number] 40mg Take 1 [facility] 40 mg 4-29 tablet by [facility] of tablet 00:00: mouth daily. Medical Branch pregabalin 2021-0 Yes [id number] 150mg Take 1 [facility] 150 mg 4-29 capsule by [facility] of capsule 00:00: mouth 3 (three) Medical times Branch daily. busPIRone 2021-0 Yes [id number] 20mg Take 2 [facility] 10 mg 4-29 tablets by [facility] of tablet 00:00: mouth (two) Medical times Branch daily. citalopram 2021-0 Yes [id number] 40mg Take 1 [facility] 40 mg 4-29 tablet by [facility] of tablet 00:00: mouth daily. Medical Branch pregabalin 2021-0 Yes [id number] 150mg Take 1 [facility] 150 mg 4-29 capsule by [facility] of capsule 00:00: mouth 3 (three) Medical times Branch daily. busPIRone 2021-0 Yes [id number] 20mg Take 2 [facility] 10 mg 4-29 tablets by [facility] of tablet 00:00: mouth (two) Medical times Branch daily. citalopram 2021-0 Yes [id number] 40mg Take 1 [facility] 40 mg 4-29 tablet by [facility] of tablet 00:00: mouth daily. Medical Branch pregabalin 2021-0 Yes [id number] 150mg Take 1 [facility] 150 mg 4-29 capsule by [facility] of capsule 00:00: mouth 3 (three) Medical times Branch daily. busPIRone 2021-0 Yes [id number] 20mg Take 2 [facility] 10 mg 4-29 tablets by [facility] of tablet 00:00: mouth 2 [place] 00 (two) Medical times Branch daily. citalopram 2021-0 Yes [id number] 40mg Take 1 [facility] 40 mg 4-29 tablet by [facility] of tablet 00:00: mouth 00 daily. Medical Branch pregabalin 2021-0 Yes [id number] 150mg Take 1 [facility] 150 mg 4-29 capsule by [facility] of capsule 00:00: mouth 3 (three) Medical times Branch daily. busPIRone 2021-0 Yes [id number] 20mg Take 2 [facility] 10 mg 4-29 tablets by [facility] of tablet 00:00: mouth (two) Medical times Branch daily. citalopram 2021-0 Yes [id number] 40mg Take 1 [facility] 40 mg 4-29 tablet by [facility] of tablet 00:00: mouth 00 daily. Medical Branch pregabalin 2021-0 Yes [id number] 150mg Take 1 [facility] 150 mg 4-29 capsule by [facility] of capsule 00:00: mouth (three) Medical times Branch daily. busPIRone 2021-0 Yes [id number] 20mg Take 2 [facility] 10 mg 4-29 tablets by [facility] of tablet 00:00: mouth (two) Medical times Branch daily. citalopram 2021-0 Yes [id number] 40mg Take 1 [facility] 40 mg 4-29 tablet by [facility] of tablet 00:00: mouth daily. Medical Branch pregabalin 2021-0 Yes [id number] 150mg Take 1 [facility] 150 mg 4-29 capsule by [facility] of capsule 00:00: mouth (three) Medical times Branch daily. busPIRone 2-0 Yes [id number] 20mg Take 2 [facility] 10 mg 4-29 tablets by [facility] of tablet 00:00: mouth (two) Medical times Branch daily. citalopram 2-0 Yes [id number] 40mg Take 1 [facility] 40 mg 4-29 tablet by [facility] of tablet 00:00: mouth 00 daily. Medical Branch pregabalin 2021-0 Yes [id number] 150mg Take 1 [facility] 150 mg 4-29 capsule by [facility] of capsule 00:00: mouth 3 (three) Medical times Branch daily. busPIRone 2022-0 Yes [id number] 20mg Take 2 [facility] 10 mg 4-29 tablets by [facility] of tablet 00:00: mouth (two) Medical times Branch daily. citalopram 2021-0 Yes [id number] 40mg Take 1 [facility] 40 mg 4-29 tablet by [facility] of tablet 00:00: mouth 00 daily. Medical Branch pregabalin 2021-0 Yes [id number] 150mg Take 1 [facility] 150 mg 4-29 capsule by [facility] of capsule 00:00: mouth 3 (three) Medical times Branch daily. busPIRone 2021-0 Yes [id number] 20mg Take 2 [facility] 10 mg 4-29 tablets by [facility] of tablet 00:00: mouth (two) Medical times Branch daily. citalopram 2021-0 Yes [id number] 40mg Take 1 [facility] 40 mg 4-29 tablet by [facility] of tablet 00:00: mouth daily. Medical Branch pregabalin 2021-0 Yes [id number] 150mg Take 1 [facility] 150 mg 4-29 capsule by [facility] of capsule 00:00: mouth (three) Medical times Branch daily. busPIRone 2021-0 Yes [id number] 20mg Take 2 [facility] 10 mg 4-29 tablets by [facility] of tablet 00:00: mouth (two) Medical times Branch daily. citalopram 2021-0 Yes [id number] 40mg Take 1 [facility] 40 mg 4-29 tablet by [facility] of tablet 00:00: mouth daily. Medical Branch pregabalin 2021-0 Yes [id number] 150mg Take 1 [facility] 150 mg 4-29 capsule by [facility] of capsule 00:00: mouth 3 (three) Medical times Branch daily. busPIRone 2021-0 Yes [id number] 20mg Take 2 [facility] 10 mg 4-29 tablets by [facility] of tablet 00:00: mouth (two) Medical times Branch daily. citalopram 2021-0 Yes [id number] 40mg Take 1 [facility] 40 mg 4-29 tablet by [facility] of tablet 00:00: mouth 00 daily. Medical Branch pregabalin 2021-0 Yes [id number] 150mg Take 1 [facility] 150 mg 4-29 capsule by [facility] of capsule 00:00: mouth 3 (three) Medical times Branch daily. busPIRone 2021-0 Yes [id number] 20mg Take 2 [facility] 10 mg 4-29 tablets by [facility] of tablet 00:00: mouth (two) Medical times Branch daily. citalopram 2021-0 Yes [id number] 40mg Take 1 [facility] 40 mg 4-29 tablet by [facility] of tablet 00:00: mouth 00 daily. Medical Branch pregabalin 2021-0 Yes [id number] 150mg Take 1 [facility] 150 mg 4-29 capsule by [facility] of capsule 00:00: mouth (three) Medical times Branch daily. busPIRone 2021-0 Yes [id number] 20mg Take 2 [facility] 10 mg 4-29 tablets by [facility] of tablet 00:00: mouth (two) Medical times Branch daily. citalopram 2021-0 Yes [id number] 40mg Take 1 [facility] 40 mg 4-29 tablet by [facility] of tablet 00:00: mouth daily. Medical Branch pregabalin 2021-0 Yes [id number] 150mg Take 1 [facility] 150 mg 4-29 capsule by [facility] of capsule 00:00: mouth (three) Medical times Branch daily. busPIRone 2021-0 Yes [id number] 20mg Take 2 [facility] 10 mg 4-29 tablets by [facility] of tablet 00:00: mouth (two) Medical times Branch daily. citalopram 2021-0 Yes [id number] 40mg Take 1 [facility] 40 mg 4-29 tablet by [facility] of tablet 00:00: mouth daily. Medical Branch pregabalin 2021-0 Yes [id number] 150mg Take 1 [facility] 150 mg 4-29 capsule by [facility] of capsule 00:00: mouth (three) Medical times Branch daily. busPIRone 2021-0 Yes [id number] 20mg Take 2 [facility] 10 mg 4-29 tablets by [facility] of tablet 00:00: mouth (two) Medical times Branch daily. citalopram 2021-0 Yes [id number] 40mg Take 1 [facility] 40 mg 4-29 tablet by [facility] of tablet 00:00: mouth 00 daily. Medical Branch pregabalin 2021-0 Yes [id number] 150mg Take 1 [facility] 150 mg 4-29 capsule by [facility] of capsule 00:00: mouth 3 (three) Medical times Branch daily. busPIRone 2021-0 Yes [id number] 20mg Take 2 [facility] 10 mg 4-29 tablets by [facility] of tablet 00:00: mouth (two) Medical times Branch daily. citalopram 2021-0 Yes [id number] 40mg Take 1 [facility] 40 mg 4-29 tablet by [facility] of tablet 00:00: mouth 00 daily. Medical Branch pregabalin 2021-0 Yes [id number] 150mg Take 1 [facility] 150 mg 4-29 capsule by [facility] of capsule 00:00: mouth (three) Medical times Branch daily. busPIRone 2021-0 Yes [id number] 20mg Take 2 [facility] 10 mg 4-29 tablets by [facility] of tablet 00:00: mouth (two) Medical times Branch daily. citalopram 2021-0 Yes [id number] 40mg Take 1 [facility] 40 mg 4-29 tablet by [facility] of tablet 00:00: mouth daily. Medical Branch pregabalin 2021-0 Yes [id number] 150mg Take 1 [facility] 150 mg 4-29 capsule by [facility] of capsule 00:00: mouth (three) Medical times Branch daily. busPIRone 2021-0 Yes [id number] 20mg Take 2 [facility] 10 mg 4-29 tablets by [facility] of tablet 00:00: mouth (two) Medical times Branch daily. citalopram 2021-0 Yes [id number] 40mg Take 1 [facility] 40 mg 4-29 tablet by [facility] of tablet 00:00: mouth daily. Medical Branch pregabalin 2021-0 Yes [id number] 150mg Take 1 [facility] 150 mg 4-29 capsule by [facility] of capsule 00:00: mouth 3 (three) Medical times Branch daily. busPIRone 2-0 Yes [id number] 20mg Take 2 [facility] 10 mg 4-29 tablets by [facility] of tablet 00:00: mouth (two) Medical times Branch daily. citalopram 2021-0 Yes [id number] 40mg Take 1 [facility] 40 mg 4-29 tablet by [facility] of tablet 00:00: mouth 00 daily. Medical Branch pregabalin 2021-0 Yes [id number] 150mg Take 1 [facility] 150 mg 4-29 capsule by [facility] of capsule 00:00: mouth (three) Medical times Branch daily. busPIRone 2021-0 Yes [id number] 20mg Take 2 [facility] 10 mg 4-29 tablets by [facility] of tablet 00:00: mouth (two) Medical times Branch daily. citalopram 2021-0 Yes [id number] 40mg Take 1 [facility] 40 mg 4-29 tablet by [facility] of tablet 00:00: mouth daily. Medical [facility] pregabalin 2021-0 Yes [id number] 150mg Take 1 [facility] 150 mg 4-29 capsule by [facility] of capsule 00:00: mouth (three) Medical times Branch daily. busPIRone 2021-0 Yes [id number] 20mg Take 2 [facility] 10 mg 4-29 tablets by [facility] of tablet 00:00: mouth (two) Medical times Branch daily. citalopram 2021-0 Yes [id number] 40mg Take 1 [facility] 40 mg 4-29 tablet by [facility] of tablet 00:00: mouth daily. Medical [facility] pregabalin 2021-0 Yes [id number] 150mg Take 1 [facility] 150 mg 4-29 capsule by [facility] of capsule 00:00: mouth (three) Medical times Branch daily. busPIRone 2021-0 Yes [id number] 20mg Take 2 [facility] 10 mg 4-29 tablets by [facility] of tablet 00:00: mouth (two) Medical times Branch daily. citalopram 2021-0 Yes [id number] 40mg Take 1 [facility] 40 mg 4-29 tablet by [facility] of tablet 00:00: mouth daily. Medical Branch pregabalin 2021-0 Yes [id number] 150mg Take 1 [facility] 150 mg 4-29 capsule by [facility] of capsule 00:00: mouth (three) Medical times Branch daily. busPIRone 2021-0 Yes [id number] 20mg Take 2 [facility] 10 mg 4-29 tablets by [facility] of tablet 00:00: mouth (two) Medical times Branch daily. citalopram 2021-0 Yes [id number] 40mg Take 1 [facility] 40 mg 4-29 tablet by [facility]y of tablet 00:00: mouth 00 daily. Medical Branch pregabalin 2021-0 Yes [id number] 150mg Take 1 [facility] 150 mg 4-29 capsule by [facility]y of capsule 00:00: mouth 3 (three) Medical times Branch daily. busPIRone 2021-0 Yes [id number] 20mg Take 2 [facility] 10 mg 4-29 tablets by [facility] of tablet 00:00: mouth (two) Medical times Branch daily. citalopram 2021-0 Yes [id number] 40mg Take 1 [facility] 40 mg 4-29 tablet by [facility]y of tablet 00:00: mouth 00 daily. Medical Branch pregabalin 2021-0 Yes [id number] 150mg Take 1 [facility] 150 mg 4-29 capsule by [facility]y of capsule 00:00: mouth (three) Medical times Branch daily. busPIRone 2021-0 Yes [id number] 20mg Take 2 [facility] 10 mg 4-29 tablets by [facility] of tablet 00:00: mouth (two) Medical times Branch daily. citalopram 2021-0 Yes [id number] 40mg Take 1 [facility] 40 mg 4-29 tablet by [facility] of tablet 00:00: mouth daily. Medical [facility] pregabalin 2021-0 Yes [id number] 150mg Take 1 [facility] 150 mg 4-29 capsule by [facility] of capsule 00:00: mouth (three) Medical times Branch daily. busPIRone 2021-0 Yes [id number] 20mg Take 2 [facility] 10 mg 4-29 tablets by [facility] of tablet 00:00: mouth (two) Medical times Branch daily. citalopram 2021-0 Yes [id number] 40mg Take 1 [facility] 40 mg 4-29 tablet by [facility] of tablet 00:00: mouth 00 daily. Medical Branch pregabalin 2021-0 Yes [id number] 150mg Take 1 [facility] 150 mg 4-29 capsule by [facility] of capsule 00:00: mouth 3 (three) Medical times Branch daily. busPIRone 2021-0 Yes [id number] 20mg Take 2 [facility] 10 mg 4-29 tablets by [facility]y of tablet 00:00: mouth (two) Medical times Branch daily. citalopram 2021-0 Yes [id number] 40mg Take 1 [facility] 40 mg 4-29 tablet by [facility] of tablet 00:00: mouth daily. Medical [facility] pregabalin 2021-0 Yes [id number] 150mg Take 1 [facility] 150 mg 4-29 capsule by [facility] of capsule 00:00: mouth (three) Medical times Branch daily. busPIRone 2021-0 Yes [id number] 20mg Take 2 [facility] 10 mg 4-29 tablets by [facility] of tablet 00:00: mouth (two) Medical times Branch daily. citalopram 2021-0 Yes [id number] 40mg Take 1 [facility] 40 mg 4-29 tablet by [facility] of tablet 00:00: mouth daily. Medical Branch pregabalin 2021-0 Yes [id number] 150mg Take 1 [facility] 150 mg 4-29 capsule by [facility]y of capsule 00:00: mouth (three) Medical times Branch daily. busPIRone 2021-0 Yes [id number] 20mg Take 2 [facility] 10 mg 4-29 tablets by [facility] of tablet 00:00: mouth (two) Medical times Branch daily. citalopram 2021-0 Yes [id number] 40mg Take 1 [facility] 40 mg 4-29 tablet by [facility]y of tablet 00:00: mouth daily. Medical Branch pregabalin 2021-0 Yes [id number] 150mg Take 1 [facility] 150 mg 4-29 capsule by [facility]y of capsule 00:00: mouth (three) Medical times Branch daily. busPIRone 2021-0 Yes [id number] 20mg Take 2 [facility] 10 mg 4-29 tablets by [facility] of tablet 00:00: mouth (two) Medical times Branch daily. citalopram 2021-0 Yes [id number] 40mg Take 1 [facility] 40 mg 4-29 tablet by [facility] of tablet 00:00: mouth daily. Medical [facility] pregabalin 2021-0 Yes [id number] 150mg Take 1 [facility] 150 mg 4-29 capsule by [facility] of capsule 00:00: mouth 3 (three) Medical times Branch daily. busPIRone 2021-0 Yes [id number] 20mg Take 2 [facility] 10 mg 4-29 tablets by [facility] of tablet 00:00: mouth (two) Medical times Branch daily. citalopram 2021-0 Yes [id number] 40mg Take 1 [facility] 40 mg 4-29 tablet by [facility] of tablet 00:00: mouth 00 daily. [facility] pregabalin 2021-0 Yes [id number] 150mg Take 1 [facility] 150 mg 4-29 capsule by [facility] of capsule 00:00: mouth (three) Medical times Branch daily. busPIRone 2021-0 Yes [id number] 20mg Take 2 [facility] 10 mg 4-29 tablets by [facility] of tablet 00:00: mouth (two) Medical times Branch daily. citalopram 2021-0 Yes [id number] 40mg Take 1 [facility] 40 mg 4-29 tablet by [facility] of tablet 00:00: mouth daily. [facility] pregabalin 2021-0 Yes [id number] 150mg Take 1 [facility] 150 mg 4-29 capsule by [facility] of capsule 00:00: mouth (three) Medical times Branch daily. busPIRone 2021-0 Yes [id number] 20mg Take 2 [facility] 10 mg 4-29 tablets by [facility] of tablet 00:00: mouth (two) Medical times Branch daily. citalopram 2021-0 Yes [id number] 40mg Take 1 [facility] 40 mg 4-29 tablet by [facility] of tablet 00:00: mouth daily. [facility] pregabalin 2021-0 Yes [id number] 150mg Take 1 [facility] 150 mg 4-29 capsule by [facility] of capsule 00:00: mouth (three) Medical times Branch daily. busPIRone 2-0 Yes [id number] 20mg Take 2 [facility] 10 mg 4-29 tablets by [facility] of tablet 00:00: mouth (two) Medical times Branch daily. citalopram 2021-0 Yes [id number] 40mg Take 1 [facility] 40 mg 4-29 tablet by [facility] of tablet 00:00: mouth 00 daily. [facility] pregabalin 2021-0 Yes [id number] 150mg Take 1 [facility] 150 mg 4-29 capsule by [facility] of capsule 00:00: mouth 3 (three) Medical times Branch daily. busPIRone 2021-0 Yes [id number] 20mg Take 2 [facility] 10 mg 4-29 tablets by [facility] of tablet 00:00: mouth 2 (two) Medical times Branch daily. citalopram 2021-0 Yes [id number] 40mg Take 1 [facility] 40 mg 4-29 tablet by [facility] of tablet 00:00: mouth 00 daily. [facility] pregabalin 2021-0 Yes [id number] 150mg Take 1 [facility] 150 mg 4-29 capsule by [facility] of capsule 00:00: mouth 3 (three) Medical times Branch daily. busPIRone 2021-0 Yes [id number] 20mg Take 2 [facility] 10 mg 4-29 tablets by [facility] of tablet 00:00: mouth (two) Medical times Branch daily. citalopram 2021-0 Yes [id number] 40mg Take 1 [facility] 40 mg 4-29 tablet by [facility] of tablet 00:00: mouth 00 daily. [facility] pregabalin 2021-0 Yes [id number] 150mg Take 1 [facility] 150 mg 4-29 capsule by [facility] of capsule 00:00: mouth 3 (three) Medical times Branch daily. busPIRone 2021-0 Yes [id number] 20mg Take 2 [facility] 10 mg 4-29 tablets by [facility] of tablet 00:00: mouth (two) Medical times Branch daily. citalopram 2021-0 Yes [id number] 40mg Take 1 [facility] 40 mg 4-29 tablet by [facility] of tablet 00:00: mouth 00 daily. [facility] citalopram 2021-0 Yes [id number] 40mg Take 1 [facility] 40 mg 4-29 tablet by [facility] of tablet 00:00: mouth 00 daily. [facility] citalopram 2021-0 Yes [id number] 40mg Take 1 [facility] 40 mg 4-29 tablet by [facility] of tablet 00:00: mouth [place] 00 daily. [facility] citalopram 0 Yes [id number] 40mg Take 1 [facility] 40 mg 4-29 tablet by [facility] of tablet 00:00: mouth [place] 00 daily. [facility] citalopram 2021-0 Yes [id number] 40mg Take 1 [facility] 40 mg 4-29 tablet by [facility] of tablet 00:00: mouth [place] 00 daily. [facility] citalopram 0 Yes [id number] 40mg Take 1 [facility] 40 mg 4-29 tablet by [facility] of tablet 00:00: mouth [place] 00 daily. [facility] citalopram 0 Yes [id number] 40mg Take 1 [facility] 40 mg 4-29 tablet by [facility] of tablet 00:00: mouth [place] 00 daily. [facility] citalopram 0 Yes [id number] 40mg Take 1 [facility] 40 mg 4-29 tablet by [facility] of tablet 00:00: mouth [place] 00 daily. [facility] citalopram 0 Yes [id number] 40mg Take 1 [facility] 40 mg 4-29 tablet by [facility] of tablet 00:00: mouth [place] 00 daily. [facility] citalopram 0 Yes [id number] 40mg Take 1 [facility] 40 mg 4-29 tablet by [facility] of tablet 00:00: mouth [place] 00 daily. [facility] citalopram 0 Yes [id number] 40mg Take 1 [facility] 40 mg 4-29 tablet by [facility] of tablet 00:00: mouth [place] 00 daily. [facility] citalopram 0 Yes [id number] 40mg Take 1 [facility] 40 mg 4-29 tablet by [facility] of tablet 00:00: mouth [place] 00 daily. [facility] citalopram 0 Yes [id number] 40mg Take 1 [facility] 40 mg 4-29 tablet by [facility] of tablet 00:00: mouth [place] 00 daily. [facility] citalopram 0 Yes [id number] 40mg Take 1 [facility] 40 mg 4-29 tablet by [facility] of tablet 00:00: mouth [place] 00 daily. [facility] citalopram 2022-0 Yes [id number] 40mg Take 1 [facility] 40 mg 4-29 tablet by [facility] of tablet 00:00: mouth [place] 00 daily. [facility] citalopram 0 Yes [id number] 40mg Take 1 [facility] 40 mg 4-29 tablet by [facility] of tablet 00:00: mouth [place] 00 daily. [facility] citalopram 0 Yes [id number] 40mg Take 1 [facility] 40 mg 4-29 tablet by [facility] of tablet 00:00: mouth [place] 00 daily. [facility] citalopram 0 Yes [id number] 40mg Take 1 [facility] 40 mg 4-29 tablet by [facility] of tablet 00:00: mouth [place] 00 daily. [facility] citalopram 0 Yes [id number] 40mg Take 1 [facility] 40 mg 4-29 tablet by [facility] of tablet 00:00: mouth [place] 00 daily. [facility] citalopram 0 Yes [id number] 40mg Take 1 [facility] 40 mg 4-29 tablet by [facility] of tablet 00:00: mouth [place] 00 daily. [facility] citalopram Yes [id number] 40mg Take 1 [facility] 40 mg 4-29 tablet by [facility] of tablet 00:00: mouth [place] 00 daily. [facility] citalopram Yes [id number] 40mg Take 1 [facility] 40 mg 4-29 tablet by [facility] of tablet 00:00: mouth [place] 00 daily. [facility] citalopram 0 Yes [id number] 40mg Take 1 [facility] 40 mg 4-29 tablet by [facility] of tablet 00:00: mouth [place] 00 daily. [facility] citalopram 0 Yes [id number] 40mg Take 1 [facility] 40 mg 4-29 tablet by [facility] of tablet 00:00: mouth [place] 00 daily. [facility] citalopram 0 Yes [id number] 40mg Take 1 [facility] 40 mg 4-29 tablet by [facility] of tablet 00:00: mouth [place] 00 daily. [facility] citalopram 0 Yes [id number] 40mg Take 1 [facility] 40 mg 4-29 tablet by [facility] of tablet 00:00: mouth [place] 00 daily. [facility] citalopram 0 Yes [id number] 40mg Take 1 [facility] 40 mg 4-29 tablet by [facility] of tablet 00:00: mouth [place] 00 daily. [facility] citalopram 0 Yes [id number] 40mg Take 1 [facility] 40 mg 4-29 tablet by [facility] of tablet 00:00: mouth [place] 00 daily. [facility] citalopram 0 Yes [id number] 40mg Take 1 [facility] 40 mg 4-29 tablet by [facility] of tablet 00:00: mouth [place] 00 daily. [facility] citalopram 0 Yes [id number] 40mg Take 1 [facility] 40 mg 4-29 tablet by [facility] of tablet 00:00: mouth [place] 00 daily. [facility] citalopram Yes [id number] 40mg Take 1 [facility] 40 mg 4-29 tablet by [facility] of tablet 00:00: mouth [place] 00 daily. [facility] citalopram 0 Yes [id number] 40mg Take 1 [facility] 40 mg 4-29 tablet by [facility] of tablet 00:00: mouth [place] 00 daily. [facility] citalopram 0 Yes [id number] 40mg Take 1 [facility] 40 mg 4-29 tablet by [facility] of tablet 00:00: mouth [place] 00 daily. [facility] citalopram Yes [id number] 40mg Take 1 [facility] 40 mg 4-29 tablet by [facility] of tablet 00:00: mouth [place] 00 daily. [facility] citalopram 0 Yes [id number] 40mg Take 1 [facility] 40 mg 4-29 tablet by [facility] of tablet 00:00: mouth [place] 00 daily. [facility] citalopram 0 Yes [id number] 40mg Take 1 [facility] 40 mg 4-29 tablet by [facility] of tablet 00:00: mouth [place] 00 daily. [facility] citalopram 0 Yes [id number] 40mg Take 1 [facility] 40 mg 4-29 tablet by [facility] of tablet 00:00: mouth [place] 00 daily. [facility] citalopram 0 Yes [id number] 40mg Take 1 [facility] 40 mg 4-29 tablet by [facility] of tablet 00:00: mouth [place] 00 daily. [facility] citalopram 0 Yes [id number] 40mg Take 1 [facility] 40 mg 4-29 tablet by [facility] of tablet 00:00: mouth [place] 00 daily. [facility] citalopram 0 Yes [id number] 40mg Take 1 [facility] 40 mg 4-29 tablet by [facility] of tablet 00:00: mouth [place] 00 daily. [facility] citalopram 0 Yes [id number] 40mg Take 1 [facility] 40 mg 4-29 tablet by [facility] of tablet 00:00: mouth [place] 00 daily. [facility] citalopram 0 Yes [id number] 40mg Take 1 [facility] 40 mg 4-29 tablet by [facility] of tablet 00:00: mouth [place] 00 daily. [facility] citalopram 0 Yes [id number] 40mg Take 1 [facility] 40 mg 4-29 tablet by [facility] of tablet 00:00: mouth [place] 00 daily. [facility] citalopram 0 Yes [id number] 40mg Take 1 [facility] 40 mg 4-29 tablet by [facility] of tablet 00:00: mouth [place] 00 daily. [facility] citalopram Yes [id number] 40mg Take 1 [facility] 40 mg 4-29 tablet by [facility] of tablet 00:00: mouth [place] 00 daily. [facility] citalopram Yes [id number] 40mg Take 1 [facility] 40 mg 4-29 tablet by [facility] of tablet 00:00: mouth [place] 00 daily. [facility] citalopram 0 Yes [id number] 40mg Take 1 [facility] 40 mg 4-29 tablet by [facility] of tablet 00:00: mouth [place] 00 daily. [facility] citalopram 0 Yes [id number] 40mg Take 1 [facility] 40 mg 4-29 tablet by [facility] of tablet 00:00: mouth [place] 00 daily. [facility] citalopram 0 Yes [id number] 40mg Take 1 [facility] 40 mg 4-29 tablet by [facility] of tablet 00:00: mouth [place] 00 daily. [facility] citalopram 0 Yes [id number] 40mg Take 1 [facility] 40 mg 4-29 tablet by [facility] of tablet 00:00: mouth [place] 00 daily. [facility] citalopram 2021-0 Yes [id number] 40mg Take 1 [facility] 40 mg 4-29 tablet by [facility] tablet 00:00: mouth 00 daily. [facility] citalopram 2021-0 Yes [id number] 40mg Take 1 [facility] 40 mg 4-29 tablet by [facility] tablet 00:00: mouth 00 daily. [facility] citalopram 2021-0 Yes [id number] 40mg Take 1 [facility] 40 mg 4-29 tablet by [facility] tablet 00:00: mouth 00 daily. [facility] pregabalin 2021-0 Yes [id number] 150mg Take 1 [facility] 150 mg 4-29 capsule by [facility] capsule 00:00: mouth 3 (three) Medical times Branch daily. busPIRone 2021-0 Yes [id number] 20mg Take 2 [facility] [place] 10 mg 4-29 tablets by [facility] tablet 00:00: mouth (two) Medical times Branch daily. citalopram 0 Yes [id number] 40mg Take 1 [facility] nivers 40 mg 4-29 tablet by [facility]y of tablet 00:00: mouth 00 daily. [facility] pregabalin 0 Yes [id number] 150mg Take 1 [facility] 150 mg 4-29 capsule by [facility] of capsule 00:00: mouth (three) Medical times Branch daily. busPIRone 2021-0 Yes [id number] 20mg Take 2 [facility] [place] 10 mg 4-29 tablets by [facility] of tablet 00:00: mouth (two) Medical times Branch daily. citalopram 2021-0 Yes [id number] 40mg Take 1 [facility] n[facility] 40 mg 4-29 tablet by [facility] of tablet 00:00: mouth 00 daily. [facility] pregabalin 2021-0 Yes [id number] 150mg Take 1 [facility] 150 mg 4-29 capsule by [facility] of capsule 00:00: mouth 3 (three) Medical times Branch daily. busPIRone 2021-0 Yes [id number] 20mg Take 2 [facility] [place] 10 mg 4-29 tablets by [facility] of tablet 00:00: mouth (two) Medical times [facility] daily. citalopram 2021-0 Yes [id number] 40mg Take 1 [facility] 40 mg 4-29 tablet by [facility] of tablet 00:00: mouth 00 daily. [facility] pregabalin 2021-0 Yes [id number] 150mg Take 1 [facility] 150 mg 4-29 capsule by [facility] of capsule 00:00: mouth 3 (three) Medical times Branch daily. busPIRone 2021-0 Yes [id number] 20mg Take 2 [facility] [place] 10 mg 4-29 tablets by [facility] of tablet 00:00: mouth (two) Medical times [facility] daily. citalopram 2021-0 Yes [id number] 40mg Take 1 [facility] 40 mg 4-29 tablet by [facility] of tablet 00:00: mouth 00 daily. [facility] pregabalin 2021-0 Yes [id number] 150mg Take 1 [facility] 150 mg 4-29 capsule by [facility] of capsule 00:00: mouth (three) Medical times Branch daily. busPIRone 2021-0 Yes [id number] 20mg Take 2 [facility] [place] 10 mg 4-29 tablets by [facility] of tablet 00:00: mouth (two) Medical times [facility] daily. citalopram 2021-0 Yes [id number] 40mg Take 1 [facility] 40 mg 4-29 tablet by [facility] of tablet 00:00: mouth daily. [facility] pregabalin 2021-0 Yes [id number] 150mg Take 1 [facility] 150 mg 4-29 capsule by [facility] of capsule 00:00: mouth (three) Medical times [facility] daily. busPIRone 2021-0 Yes [id number] 20mg Take 2 [facility] [place] 10 mg 4-29 tablets by [facility] of tablet 00:00: mouth (two) Medical times [facility] daily. citalopram 2021-0 Yes [id number] 40mg Take 1 [facility] 40 mg 4-29 tablet by [facility] of tablet 00:00: mouth 00 daily. [facility] pregabalin 2021-0 Yes [id number] 150mg Take 1 [facility] 150 mg 4-29 capsule by [facility] of capsule 00:00: mouth 3 (three) Medical times Branch daily. busPIRone 2021-0 Yes [id number] 20mg Take 2 [facility] [place] 10 mg 4-29 tablets by [facility] of tablet 00:00: mouth (two) Medical times [facility] daily. citalopram 2021-0 Yes [id number] 40mg Take 1 [facility] 40 mg 4-29 tablet by [facility] of tablet 00:00: mouth 00 daily. [facility] pregabalin 2021-0 Yes [id number] 150mg Take 1 [facility] 150 mg 4-29 capsule by [facility] of capsule 00:00: mouth 3 (three) Medical times Branch daily. busPIRone 2021-0 Yes [id number] 20mg Take 2 [facility] [place] 10 mg 4-29 tablets by [facility] of tablet 00:00: mouth (two) Medical times [facility] daily. citalopram 2021-0 Yes [id number] 40mg Take 1 [facility] 40 mg 4-29 tablet by [facility] of tablet 00:00: mouth 00 daily. [facility] pregabalin 2021-0 Yes [id number] 150mg Take 1 [facility] 150 mg 4-29 capsule by [facility] of capsule 00:00: mouth (three) Medical times Branch daily. busPIRone 2021-0 Yes [id number] 20mg Take 2 [facility] [place] 10 mg 4-29 tablets by [facility] of tablet 00:00: mouth (two) Medical times [facility] daily. citalopram 2021-0 Yes [id number] 40mg Take 1 [facility] 40 mg 4-29 tablet by [facility] of tablet 00:00: mouth 00 daily. [facility] pregabalin 2021-0 Yes [id number] 150mg Take 1 [facility] 150 mg 4-29 capsule by [facility] of capsule 00:00: mouth 3 (three) Medical times Branch daily. busPIRone 2021-0 Yes [id number] 20mg Take 2 [facility] [place] 10 mg 4-29 tablets by [facility] of tablet 00:00: mouth (two) Medical times [facility] daily. citalopram 2-0 Yes [id number] 40mg Take 1 [facility] 40 mg 4-29 tablet by [facility] of tablet 00:00: mouth 00 daily. [facility] pregabalin 2021-0 Yes [id number] 150mg Take 1 [facility] 150 mg 4-29 capsule by [facility] of capsule 00:00: mouth 3 [place] 00 (three) Medical times Branch daily. busPIRone 0 Yes [id number] 20mg Take 2 [facility] 10 mg 4-29 tablets by [facility]y of tablet 00:00: mouth 2 [place] 00 (two) Medical times Branch daily. citalopram Yes [id number] 40mg Take 1 [facility] 40 mg 4-29 tablet by [facility] of tablet 00:00: mouth [place] 00 daily. [facility] pregabalin 2021- No [id number] 150mg Take 1 [facility] 150 mg 4-29 10-13 capsule by [facility] of capsule 00:00: 00:00 mouth 3 [place] 00 :00 (three) Medical times Branch daily. busPIRone 2021- No [id number] 20mg Take 2 [facility] 10 mg 4-29 10-13 tablets by ity of tablet 00:00: 00:00 mouth 2 [place] 00 :00 (two) Medical times Branch daily. pantoprazol Yes [id number] 40mg Take 1 [facility] e 40 mg EC 4-04 tablet by [facility]y of tablet 00:00: mouth [place] 00 daily. [facility] pantoprazol Yes [id number] 40mg Take 1 [facility] e 40 mg EC 4-04 tablet by ity of tablet 00:00: mouth [place] 00 daily. [facility] pantoprazol Yes [id number] 40mg Take 1 [facility] e 40 mg EC 4-04 tablet by ity of tablet 00:00: mouth [place] 00 daily. [facility] pantoprazol Yes [id number] 40mg Take 1 [facility] e 40 mg EC 4-04 tablet by ity of tablet 00:00: mouth [place] 00 daily. [facility] pantoprazol 0 Yes [id number] 40mg Take 1 [facility] e 40 mg EC 4-04 tablet by ity of tablet 00:00: mouth [place] 00 daily. [facility] pantoprazol 0 Yes [id number] 40mg Take 1 [facility] e 40 mg EC 4-04 tablet by [facility]y of tablet 00:00: mouth [place] 00 daily. [facility] pantoprazol Yes [id number] 40mg Take 1 [facility] e 40 mg EC 4-04 tablet by [facility]y of tablet 00:00: mouth [place] 00 daily. [facility] pantoprazol Yes [id number] 40mg Take 1 [facility] e 40 mg EC 4-04 tablet by [facility]y of tablet 00:00: mouth [place] 00 daily. [facility] pantoprazol 2021-0 Yes [id number] 40mg Take 1 [facility] e 40 mg EC 4-04 tablet by ity of tablet 00:00: mouth [place] 00 daily. [facility] pantoprazol 0 Yes [id number] 40mg Take 1 [facility] e 40 mg EC 4-04 tablet by [facility]y of tablet 00:00: mouth [place] 00 daily. [facility] pantoprazol Yes [id number] 40mg Take 1 [facility] e 40 mg EC 4-04 tablet by [facility]y of tablet 00:00: mouth [place] 00 daily. [facility] pantoprazol Yes [id number] 40mg Take 1 [facility] e 40 mg EC 4-04 tablet by [facility]y of tablet 00:00: mouth [place] 00 daily. [facility] pantoprazol Yes [id number] 40mg Take 1 [facility] e 40 mg EC 4-04 tablet by [facility]y of tablet 00:00: mouth [place] 00 daily. [facility] pantoprazol Yes [id number] 40mg Take 1 [facility] e 40 mg EC 4-04 tablet by [facility]y of tablet 00:00: mouth [place] 00 daily. [facility] pantoprazol Yes [id number] 40mg Take 1 [facility] e 40 mg EC 4-04 tablet by [facility]y of tablet 00:00: mouth [place] 00 daily. [facility] pantoprazol 2021- Yes [id number] 40mg Take 1 [facility] e 40 mg EC 4-04 tablet by [facility]y of tablet 00:00: mouth [place] 00 daily. [facility] pantoprazol 2021-0 Yes [id number] 40mg Take 1 [facility] e 40 mg EC 4-04 tablet by [facility]y of tablet 00:00: mouth [place] 00 daily. [facility] pantoprazol 2021-0 Yes [id number] 40mg Take 1 [facility] e 40 mg EC 4-04 tablet by [facility]y of tablet 00:00: mouth [place] 00 daily. [facility] pantoprazol 0 Yes [id number] 40mg Take 1 [facility] e 40 mg EC 4-04 tablet by ity of tablet 00:00: mouth [place] 00 daily. [facility] pantoprazol 2021-0 Yes [id number] 40mg Take 1 [facility] e 40 mg EC 4-04 tablet by ity of tablet 00:00: mouth [place] 00 daily. [facility] pantoprazol Yes [id number] 40mg Take 1 [facility] e 40 mg EC 4-04 tablet by [facility]y of tablet 00:00: mouth [place] 00 daily. [facility] pantoprazol Yes [id number] 40mg Take 1 [facility] e 40 mg EC 4-04 tablet by [facility]y of tablet 00:00: mouth [place] 00 daily. [facility] pantoprazol Yes [id number] 40mg Take 1 [facility] e 40 mg EC 4-04 tablet by [facility]y of tablet 00:00: mouth [place] 00 daily. [facility] pantoprazol Yes [id number] 40mg Take 1 [facility] e 40 mg EC 4-04 tablet by [facility]y of tablet 00:00: mouth [place] 00 daily. [facility] pantoprazol Yes [id number] 40mg Take 1 [facility] e 40 mg EC 4-04 tablet by [facility]y of tablet 00:00: mouth [place] 00 daily. [facility] pantoprazol Yes [id number] 40mg Take 1 [facility] e 40 mg EC 4-04 tablet by [facility]y of tablet 00:00: mouth [place] 00 daily. [facility] pantoprazol Yes [id number] 40mg Take 1 [facility] e 40 mg EC 4-04 tablet by [facility] of tablet 00:00: mouth [place] 00 daily. [facility] pantoprazol Yes [id number] 40mg Take 1 [facility] e 40 mg EC 4-04 tablet by [facility]y of tablet 00:00: mouth [place] 00 daily. [facility] pantoprazol Yes [id number] 40mg Take 1 [facility] e 40 mg EC 4-04 tablet by [facility]y of tablet 00:00: mouth [place] 00 daily. [facility] pantoprazol 0 Yes [id number] 40mg Take 1 [facility] e 40 mg EC 4-04 tablet by [facility]y of tablet 00:00: mouth [place] 00 daily. [facility] pantoprazol 2021- No [id number] 40mg Take 1 [facility] e 40 mg EC 4-04 09-16 tablet by [facility]y of tablet 00:00: 00:00 mouth [place] 00 :00 daily. [facility] pantoprazol 2021- No [id number] 40mg Take 1 [facility] e 40 mg EC 4 0916 tablet by ity of tablet 00:00: 00:00 mouth [place] 00 :00 daily. [facility] Blood-Gluco 2-0 Yes [id number] Use twice [facility] se Meter 3-08 a day for ity of (ONETOUCH 00:00: ICD [place] VERIO FLEX E11.65 Medical START) [facility] Blood-Gluco 2021-0 Yes [id number] Use twice [facility] se Meter 3-08 a day for it[facility] of (ONETOUCH 00:00: [place] VERIO FLEX E11.65 Medical START) Kit [facility] Blood-Gluco 2021-0 Yes [id number] Use twice [facility] se M[facility] 3-08 a day for it[facility] of (ONETOUCH 00:00: ICD [place] VERIO FLEX E11.65 Medical START) Kit [facility] Blood-Gluco 2021-0 Yes [id number] Use twice [facility] se M[facility] 3-08 a day for ity of (ONETOUCH 00:00: ICD [place] VERIO FLEX E11.65 Medical START) Kit [facility] Blood-Gluco 2-0 Yes [id number] Use twice [facility] se M[facility] 3-08 a day for ity of (ONETOUCH 00:00: ICD [place] VERIO FLEX E11.65 Medical START) Kit [facility] Blood-Gluco 2-0 Yes [id number] Use twice [facility] se [place] 3-08 a day for ity of (ONETOUCH 00:00: ICD CODE [place] VERIO FLEX E11.65 Medical START) Kit [facility] Blood-Gluco 2-0 Yes [id number] Use twice [facility] se [place] 3-08 a day for ity of (ONETOUCH 00:00: ICD [place] VERIO FLEX E11.65 Medical START) Kit [facility] Blood-Gluco 2-0 Yes [id number] Use twice [facility] se M[facility] 3-08 a day for ity of (ONETOUCH 00:00: ICD CODE [place] VERIO FLEX E11.65 Medical START) Kit [facility] Blood-Gluco 2022-0 Yes [id number] Use twice [facility] se M[facility] 3-08 a day for ity of (ONETOUCH 00:00: ICD CODE [place] VERIO FLEX 00 E11.65 Medical START) Kit [facility] Blood-Gluco 2022-0 Yes [id number] Use twice [facility] se [facility] 3-08 a day for ity of (ONETOUCH 00:00: ICD CODE [place] VERIO FLEX Medical START) Kit [facility] Blood-Gluco 2022-0 Yes [id number] Use twice [facility] se [place] 3-08 a day for ity of (ONETOUCH 00:00: ICD [place] VERIO FLEX Medical START) Kit [facility] Blood-Gluco 2022-0 Yes [id number] Use twice [facility] se [place] 3-08 a day for ity of (ONETOUCH 00:00: ICD [place] VERIO FLEX Medical START) Kit [facility] Blood-Gluco 2022-0 Yes [id number] Use twice [facility] se [place] 3-08 a day for ity of (ONETOUCH 00:00: ICD CODE [place] VERIO FLEX Medical START) Kit [facility] Blood-Gluco 2022-0 Yes [id number] Use twice [facility] se M[facility] 3-08 a day for ity of (ONETOUCH 00:00: ICD CODE [place] VERIO FLEX Medical START) Kit [facility] Blood-Gluco 2022-0 Yes [id number] Use twice [facility] se Meter 3-08 a day for ity of (ONETOUCH 00:00: ICD CODE [place] VERIO FLEX Medical START) Kit [facility] Blood-Gluco 2022-0 Yes [id number] Use twice [facility] se Meter 3-08 a day for ity of (ONETOUCH 00:00: ICD CODE [place] VERIO FLEX Medical START) Kit [facility] Blood-Gluco 2022-0 Yes [id number] Use twice [facility] se M[facility] 3-08 a day for ity of (ONETOUCH 00:00: ICD CODE [place] VERIO FLEX Medical START) Kit [facility] Blood-Gluco 2022-0 Yes [id number] Use twice [facility] se M[facility] 3-08 a day for ity of (ONETOUCH 00:00: ICD CODE [place] VERIO FLEX Medical START) Kit [facility] Blood-Gluco 2022-0 Yes [id number] Use twice [facility] se Meter 3-08 a day for ity of (ONETOUCH 00:00: ICD CODE [place] VERIO FLEX Medical START) Kit [facility] Blood-Gluco 2022-0 Yes [id number] Use twice [facility] se M[facility] 3-08 a day for ity of (ONETOUCH 00:00: ICD CODE [place] VERIO FLEX Medical START) Kit [facility] Blood-Gluco 2022-0 Yes [id number] Use twice [facility] se M[facility] 3-08 a day for ity of (ONETOUCH 00:00: ICD CODE [place] VERIO FLEX Medical START) Kit [facility] Blood-Gluco 2022-0 Yes [id number] Use twice [facility] se Meter 3-08 a day for ity of (ONETOUCH 00:00: ICD CODE [place] VERIO FLEX Medical START) Kit [facility] Blood-Gluco 2022-0 Yes [id number] Use twice [facility] se M[facility] 3-08 a day for ity of (ONETOUCH 00:00: ICD CODE [place] VERIO FLEX Medical START) Kit [facility] Blood-Gluco 2022-0 Yes [id number] Use twice [facility] se Meter 3-08 a day for ity of (ONETOUCH 00:00: ICD CODE [place] VERIO FLEX Medical START) Kit [facility] Blood-Gluco 2022-0 Yes [id number] Use twice [facility] se Meter 3-08 a day for ity of (ONETOUCH 00:00: ICD CODE [place] VERIO FLEX Medical START) Kit [facility] Blood-Gluco 2022-0 Yes [id number] Use twice [facility] se Meter 3-08 a day for ity of (ONETOUCH 00:00: ICD CODE [place] VERIO FLEX Medical START) Kit [facility] Blood-Gluco 2022-0 Yes [id number] Use twice [facility] se Meter 3-08 a day for ity of (ONETOUCH 00:00: ICD CODE [place] VERIO FLEX Medical START) Kit [facility] Blood-Gluco 2022-0 Yes [id number] Use twice [facility] se Meter 3-08 a day for ity of (ONETOUCH 00:00: ICD CODE [place] VERIO FLEX Medical START) Kit [facility] Blood-Gluco 2022-0 Yes [id number] Use twice [facility] se Meter 3-08 a day for ity of (ONETOUCH 00:00: ICD CODE [place] VERIO FLEX E11.65 Medical START) Kit Branch Blood-Gluco 2022-0 Yes [id number] Use twice [facility] se M[facility] 3-08 a day for ity of (ONETOUCH 00:00: ICD CODE [place] VERIO FLEX E11.65 Medical START) Kit Branch Blood-Gluco 2022-0 Yes [id number] Use twice [facility] se Meter 3-08 a day for ity of (ONETOUCH 00:00: ICD CODE [place] VERIO FLEX E11.65 Medical START) Kit Branch Blood-Gluco 2022-0 Yes [id number] Use twice [facility] se Meter 3-08 a day for ity of (ONETOUCH 00:00: ICD CODE [place] VERIO FLEX E11.65 Medical START) Kit Branch Blood-Gluco 2022-0 Yes [id number] Use twice [facility] se Meter 3-08 a day for ity of (ONETOUCH 00:00: ICD CODE [place] VERIO FLEX E11.65 Medical START) Kit Branch Blood-Gluco 2-0 Yes [id number] Use twice [facility] se Meter 3-08 a day for ity of (ONETOUCH 00:00: ICD CODE [place] VERIO FLEX E11.65 Medical START) Kit Branch Blood-Gluco 2022-0 Yes [id number] Use twice [facility] se Meter 3-08 a day for ity of (ONETOUCH 00:00: ICD CODE [place] VERIO FLEX E11.65 Medical START) Kit Branch Blood-Gluco 2022-0 Yes [id number] Use twice [facility] se Meter 3-08 a day for ity of (ONETOUCH 00:00: ICD CODE [place] VERIO FLEX E11.65 Medical START) Kit Branch Blood-Gluco 2022-0 2022- No [id number] Use twice [facility] se Meter 3-08 09-22 a day for ity o f (ONETOUCH 00:00: 00:00 ICD CODE [place] VERIO FLEX 00 :00 E11.65 Medical START) Kit Branch Blood-Gluco 2022-0 2022- No [id number] Use twice [facility] se Meter 3-08 -22 a day for ity o f (ONETOUCH 00:00: 00:00 ICD CODE [place] VERIO FLEX 00 :00 E11.65 Medical START) [facility] Blood-Gluco 2021- No [id number] Use twice [facility] se Meter 12-01 a day for ity o f (ONETOUCH 00:00: 00:00 ICD CODE [place] VERIO FLEX 00 :00 E11.65 Medical START) [facility] mirabegron Yes [id number] 50mg Take 1 Univers (MYRBETRIQ) 1-18 tablet by ity of 50 mg 00:00: mouth [place] tablet 00 daily. [facility] mirabegron 0 Yes [id number] 50mg Take 1 Univers (MYRBETRIQ) 1-18 tablet by ity of 50 mg 00:00: mouth [place] tablet 00 daily. [facility] mirabegron 0 Yes [id number] 50mg Take 1 [facility] (MYRBETRIQ) 1-18 tablet by ity of 50 mg 00:00: mouth [place] tablet 00 daily. [facility] mirabegron 0 Yes [id number] 50mg Take 1 [facility] (MYRBETRIQ) 1-18 tablet by ity of 50 mg 00:00: mouth [place] tablet 00 daily. [facility] mirabegron Yes [id number] 50mg Take 1 [facility] (MYRBETRIQ) 1-18 tablet by ity of 50 mg 00:00: mouth [place] tablet 00 daily. [facility] mirabegron 0 Yes [id number] 50mg Take 1 [facility] (MYRBETRIQ) 1-18 tablet by ity of 50 mg 00:00: mouth [place] tablet 00 daily. [facility] mirabegron 0 Yes [id number] 50mg Take 1 [facility] (MYRBETRIQ) 1-18 tablet by ity of 50 mg 00:00: mouth [place] tablet 00 daily. [facility] mirabegron Yes [id number] 50mg Take 1 [facility] (MYRBETRIQ) 1-18 tablet by ity of 50 mg 00:00: mouth [place] tablet 00 daily. [facility] mirabegron 0 Yes [id number] 50mg Take 1 [facility] (MYRBETRIQ) 1-18 tablet by ity of 50 mg 00:00: mouth [place] tablet 00 daily. [facility] mirabegron 2021-0 Yes [id number] 50mg Take 1 [facility] (MYRBETRIQ) 1-18 tablet by ity of 50 mg 00:00: mouth [place] tablet 00 daily. [facility] mirabegron 2021-0 Yes [id number] 50mg Take 1 [facility] (MYRBETRIQ) 1-18 tablet by ity of 50 mg 00:00: mouth [place] tablet 00 daily. [facility] mirabegron 0 Yes [id number] 50mg Take 1 [facility] (MYRBETRIQ) 1-18 tablet by ity of 50 mg 00:00: mouth [place] tablet 00 daily. [facility] mirabegron 0 Yes [id number] 50mg Take 1 [facility] (MYRBETRIQ) 1-18 tablet by ity of 50 mg 00:00: mouth [place] tablet 00 daily. [facility] mirabegron 0 Yes [id number] 50mg Take 1 [facility] (MYRBETRIQ) 1-18 tablet by ity of 50 mg 00:00: mouth [place] tablet 00 daily. [facility] mirabegron 0 Yes [id number] 50mg Take 1 [facility] (MYRBETRIQ) 1-18 tablet by ity of 50 mg 00:00: mouth [place] tablet 00 daily. [facility] mirabegron 0 Yes [id number] 50mg Take 1 [facility] (MYRBETRIQ) 1-18 tablet by ity of 50 mg 00:00: mouth [place] tablet 00 daily. [facility] mirabegron 2021-0 Yes [id number] 50mg Take 1 [facility] (MYRBETRIQ) 1-18 tablet by ity of 50 mg 00:00: mouth [place] tablet 00 daily. [facility] mirabegron 2021-0 Yes [id number] 50mg Take 1 [facility] (MYRBETRIQ) 1-18 tablet by ity of 50 mg 00:00: mouth [place] tablet 00 daily. [facility] mirabegron 2021-0 Yes [id number] 50mg Take 1 [facility] (MYRBETRIQ) 1-18 tablet by ity of 50 mg 00:00: mouth [place] tablet 00 daily. [facility] mirabegron 2021-0 Yes [id number] 50mg Take 1 [facility] (MYRBETRIQ) 1-18 tablet by ity of 50 mg 00:00: mouth [place] tablet 00 daily. [facility] mirabegron 2021-0 Yes [id number] 50mg Take 1 [facility] (MYRBETRIQ) 1-18 tablet by ity of 50 mg 00:00: mouth [place] tablet 00 daily. [facility] mirabegron 2021-0 Yes [id number] 50mg Take 1 [facility] (MYRBETRIQ) 1-18 tablet by ity of 50 mg 00:00: mouth [place] tablet 00 daily. [facility] mirabegron 2021-0 Yes [id number] 50mg Take 1 [facility] (MYRBETRIQ) 1-18 tablet by ity of 50 mg 00:00: mouth [place] tablet 00 daily. [facility] mirabegron 0 Yes [id number] 50mg Take 1 [facility] (MYRBETRIQ) 1-18 tablet by ity of 50 mg 00:00: mouth [place] tablet 00 daily. [facility] mirabegron 0 Yes [id number] 50mg Take 1 [facility] (MYRBETRIQ) 1-18 tablet by ity of 50 mg 00:00: mouth [place] tablet 00 daily. [facility] mirabegron 0 Yes [id number] 50mg Take 1 [facility] (MYRBETRIQ) 1-18 tablet by ity of 50 mg 00:00: mouth [place] tablet 00 daily. [facility] mirabegron 0 Yes [id number] 50mg Take 1 [facility] (MYRBETRIQ) 1-18 tablet by ity of 50 mg 00:00: mouth [place] tablet 00 daily. [facility] mirabegron 0 Yes [id number] 50mg Take 1 [facility] (MYRBETRIQ) 1-18 tablet by ity of 50 mg 00:00: mouth [place] tablet 00 daily. [facility] mirabegron 0 Yes [id number] 50mg Take 1 [facility] (MYRBETRIQ) 1-18 tablet by ity of 50 mg 00:00: mouth [place] tablet 00 daily. [facility] mirabegron 0 Yes [id number] 50mg Take 1 [facility] (MYRBETRIQ) 1-18 tablet by ity of 50 mg 00:00: mouth [place] tablet 00 daily. [facility] mirabegron 2021-0 Yes [id number] 50mg Take 1 [facility] (MYRBETRIQ) 1-18 tablet by ity of 50 mg 00:00: mouth [place] tablet 00 daily. [facility] mirabegron 0 Yes [id number] 50mg Take 1 [facility] (MYRBETRIQ) 1-18 tablet by ity of 50 mg 00:00: mouth [place] tablet 00 daily. [facility] mirabegron 0 Yes [id number] 50mg Take 1 [facility] (MYRBETRIQ) 1-18 tablet by ity of 50 mg 00:00: mouth [place] tablet 00 daily. [facility] mirabegron 0 Yes [id number] 50mg Take 1 [facility] (MYRBETRIQ) 1-18 tablet by ity of 50 mg 00:00: mouth [place] tablet 00 daily. [facility] mirabegron 0 Yes [id number] 50mg Take 1 [facility] (MYRBETRIQ) 1-18 tablet by ity of 50 mg 00:00: mouth [place] tablet 00 daily. [facility] mirabegron 0 Yes [id number] 50mg Take 1 [facility] (MYRBETRIQ) 1-18 tablet by ity of 50 mg 00:00: mouth [place] tablet 00 daily. [facility] mirabegron 0 Yes [id number] 50mg Take 1 [facility] (MYRBETRIQ) 1-18 tablet by ity of 50 mg 00:00: mouth [place] tablet 00 daily. [facility] mirabegron 0 Yes [id number] 50mg Take 1 [facility] (MYRBETRIQ) 1-18 tablet by ity of 50 mg 00:00: mouth [place] tablet 00 daily. [facility] mirabegron 0 Yes [id number] 50mg Take 1 [facility] (MYRBETRIQ) 1-18 tablet by ity of 50 mg 00:00: mouth [place] tablet 00 daily. [facility] mirabegron 0 Yes [id number] 50mg Take 1 [facility] (MYRBETRIQ) 1-18 tablet by ity of 50 mg 00:00: mouth [place] tablet 00 daily. [facility] mirabegron 0 Yes [id number] 50mg Take 1 [facility] (MYRBETRIQ) 1-18 tablet by ity of 50 mg 00:00: mouth [place] tablet 00 daily. [facility] mirabegron 0 Yes [id number] 50mg Take 1 [facility] (MYRBETRIQ) 1-18 tablet by ity of 50 mg 00:00: mouth [place] tablet 00 daily. [facility] Branch mirabegron 0 Yes [id number] 50mg Take 1 [facility] (MYRBETRIQ) 1-18 tablet by ity of 50 mg 00:00: mouth [place] tablet 00 daily. [facility] mirabegron 0 Yes [id number] 50mg Take 1 [facility] (MYRBETRIQ) 1-18 tablet by ity of 50 mg 00:00: mouth [place] tablet 00 daily. [facility] mirabegron 0 Yes [id number] 50mg Take 1 [facility] (MYRBETRIQ) 1-18 tablet by ity of 50 mg 00:00: mouth [place] tablet 00 daily. [facility] mirabegron Yes [id number] 50mg Take 1 [facility] (MYRBETRIQ) 1-18 tablet by ity of 50 mg 00:00: mouth [place] tablet 00 daily. [facility] mirabegron 0 Yes [id number] 50mg Take 1 [facility] (MYRBETRIQ) 1-18 tablet by ity of 50 mg 00:00: mouth [place] tablet 00 daily. [facility] mirabegron Yes [id number] 50mg Take 1 [facility] (MYRBETRIQ) 1-18 tablet by ity of 50 mg 00:00: mouth [place] tablet 00 daily. [facility] mirabegron 2021- No [id number] 50mg Take 1 Univers (MYRBETRIQ) 1-18 10-13 tablet by it y of 50 mg 00:00: 00:00 mouth [place] tablet 00 :00 daily. Medical Branch semaglutide 2020-09 Yes [id number] Inject [facility] (OZEMPIC) 2-01 0.25 mg ity of 0.25 mg or 00:00: under the [place] 0.5 mg(2 00 skin Medical mg/1.5 mL) weekly. Branch PnIj semaglutide 2020-09 Yes [id number] Inject [facility] (OZEMPIC) 2-01 0.25 mg ity of 0.25 mg or 00:00: under the [place] 0.5 mg(2 00 skin Medical mg/1.5 mL) weekly. Branch PnIj semaglutide 2020-09 Yes [id number] Inject [facility] (OZEMPIC) 2-01 0.25 mg ity of 0.25 mg or 00:00: under the [place] 0.5 mg(2 00 skin Medical mg/1.5 mL) weekly. Branch PnIj semaglutide 2020-09 Yes [id number] Inject [facility] (OZEMPIC) 2-01 0.25 mg ity of 0.25 mg or 00:00: under the [place] 0.5 mg(2 00 skin Medical mg/1.5 mL) weekly. Branch PnIj semaglutide 2020-09 Yes [id number] Inject [facility] (OZEMPIC) 2-01 0.25 mg ity of 0.25 mg or 00:00: under the [place] 0.5 mg(2 00 skin Medical mg/1.5 mL) weekly. Branch PnIj semaglutide 2020-09 Yes [id number] Inject [facility] (OZEMPIC) 2-01 0.25 mg ity of 0.25 mg or 00:00: under the [place] 0.5 mg(2 00 skin Medical mg/1.5 mL) weekly. Branch PnIj semaglutide 2020-09 Yes [id number] Inject [facility] (OZEMPIC) 2-01 0.25 mg ity of 0.25 mg or 00:00: under the [place] 0.5 mg(2 00 skin Medical mg/1.5 mL) weekly. Branch PnIj semaglutide 2020-09 Yes [id number] Inject [facility] (OZEMPIC) 2-01 0.25 mg ity of 0.25 mg or 00:00: under the [place] 0.5 mg(2 00 skin Medical mg/1.5 mL) weekly. Branch PnIj semaglutide 2020-09 Yes [id number] Inject [facility] (OZEMPIC) 2-01 0.25 mg ity of 0.25 mg or 00:00: under [place] 0.5 mg(2 00 skin Medical mg/1.5 mL) weekly. Branch PnIj semaglutide 2020-09 Yes [id number] Inject [facility] (OZEMPIC) 2-01 0.25 mg ity of 0.25 mg or 00:00: under the [place] 0.5 mg(2 00 skin Medical mg/1.5 mL) weekly. Branch PnIj semaglutide 2020-09 Yes [id number] Inject [facility] (OZEMPIC) 2-01 0.25 mg ity of 0.25 mg or 00:00: under the [place] 0.5 mg(2 00 skin Medical mg/1.5 mL) weekly. Branch PnIj semaglutide 2020-09 Yes [id number] Inject [facility] (OZEMPIC) 2-01 0.25 mg ity of 0.25 mg or 00:00: under the [place] 0.5 mg(2 00 skin Medical mg/1.5 mL) weekly. Branch PnIj semaglutide 2020-09 Yes [id number] Inject [facility] (OZEMPIC) 2-01 0.25 mg ity of 0.25 mg or 00:00: under the [place] 0.5 mg(2 00 skin Medical mg/1.5 mL) weekly. Branch PnIj semaglutide 2020-09 Yes [id number] Inject [facility] (OZEMPIC) 2-01 0.25 mg ity of 0.25 mg or 00:00: under the [place] 0.5 mg(2 00 skin Medical mg/1.5 mL) weekly. Branch PnIj semaglutide 2020-09 Yes [id number] Inject [facility] (OZEMPIC) 2-01 0.25 mg ity of 0.25 mg or 00:00: under the [place] 0.5 mg(2 00 skin Medical mg/1.5 mL) weekly. Branch PnIj semaglutide 2020-09 Yes [id number] Inject [facility] (OZEMPIC) 2-01 0.25 mg ity of 0.25 mg or 00:00: under the [place] 0.5 mg(2 00 skin Medical mg/1.5 mL) weekly. Branch PnIj semaglutide 2020-09 Yes [id number] Inject [facility] (OZEMPIC) 2-01 0.25 mg ity of 0.25 mg or 00:00: under the [place] 0.5 mg(2 00 skin Medical mg/1.5 mL) weekly. Branch PnIj semaglutide 2020-09 Yes [id number] Inject [facility] (OZEMPIC) 2-01 0.25 mg ity of 0.25 mg or 00:00: under the [place] 0.5 mg(2 00 skin Medical mg/1.5 mL) weekly. Branch PnIj semaglutide 2020-09 Yes [id number] Inject [facility] (OZEMPIC) 2-01 0.25 mg ity of 0.25 mg or 00:00: under the [place] 0.5 mg(2 00 skin Medical mg/1.5 mL) weekly. Branch PnIj semaglutide 2020-09 Yes [id number] Inject [facility] (OZEMPIC) 2-01 0.25 mg ity of 0.25 mg or 00:00: under the [place] 0.5 mg(2 00 skin Medical mg/1.5 mL) weekly. Branch PnIj semaglutide 2020-09 Yes [id number] Inject [facility] (OZEMPIC) 2-01 0.25 mg ity of 0.25 mg or 00:00: under the [place] 0.5 mg(2 00 skin Medical mg/1.5 mL) weekly. Branch PnIj semaglutide 2020-09 Yes [id number] Inject [facility] (OZEMPIC) 2-01 0.25 mg ity of 0.25 mg or 00:00: under the [place] 0.5 mg(2 00 skin Medical mg/1.5 mL) weekly. Branch PnIj semaglutide 2020-09 Yes [id number] Inject [facility] (OZEMPIC) 2-01 0.25 mg ity of 0.25 mg or 00:00: under the [place] 0.5 mg(2 00 skin Medical mg/1.5 mL) weekly. Branch PnIj semaglutide 2020-09 Yes [id number] Inject [facility] (OZEMPIC) 2-01 0.25 mg ity of 0.25 mg or 00:00: under the [place] 0.5 mg(2 00 skin Medical mg/1.5 mL) weekly. Branch PnIj semaglutide 2020-09 Yes [id number] Inject [facility] (OZEMPIC) 2-01 0.25 mg ity of 0.25 mg or 00:00: under the [place] 0.5 mg(2 00 skin Medical mg/1.5 mL) weekly. Branch PnIj semaglutide 2020-09 Yes [id number] Inject [facility] (OZEMPIC) 2-01 0.25 mg ity of 0.25 mg or 00:00: under the [place] 0.5 mg(2 00 skin Medical mg/1.5 mL) weekly. Branch RyIj semaglutide 2020-09 Yes [id number] Inject [facility] (OZEMPIC) 2-01 0.25 mg ity of 0.25 mg or 00:00: under the [place] 0.5 mg(2 00 skin Medical mg/1.5 mL) weekly. Branch RyIj semaglutide 2020-09 Yes [id number] Inject [facility] (OZEMPIC) 2-01 0.25 mg ity of 0.25 mg or 00:00: under the [place] 0.5 mg(2 00 skin Medical mg/1.5 mL) weekly. Branch RyMali semaglutide 2020-09 Yes [id number] Inject [facility] (OZEMPIC) 2-01 0.25 mg ity of 0.25 mg or 00:00: under the [place] 0.5 mg(2 00 skin Medical mg/1.5 mL) weekly. Branch RyMali semaglutide 2020-09 Yes [id number] Inject [facility] (OZEMPIC) 2-01 0.25 mg ity of 0.25 mg or 00:00: under the [place] 0.5 mg(2 00 skin Medical mg/1.5 mL) weekly. Branch RyMali semaglutide 2020-09 Yes [id number] Inject [facility] (OZEMPIC) 2-01 0.25 mg ity of 0.25 mg or 00:00: under the [place] 0.5 mg(2 00 skin Medical mg/1.5 mL) weekly. Branch RyIj semaglutide 2020-09 Yes [id number] Inject [facility] (OZEMPIC) 2-01 0.25 mg ity of 0.25 mg or 00:00: under the [place] 0.5 mg(2 00 skin Medical mg/1.5 mL) weekly. Branch RyM[place] semaglutide 2020-09 Yes [id number] Inject [facility] (OZEMPIC) 2-01 0.25 mg ity of 0.25 mg or 00:00: under the [place] 0.5 mg(2 00 skin Medical mg/1.5 mL) weekly. Branch RyIj semaglutide 2020-09 Yes [id number] Inject [facility] (OZEMPIC) 2-01 0.25 mg ity of 0.25 mg or 00:00: under the [place] 0.5 mg(2 00 skin Medical mg/1.5 mL) weekly. Branch PnIj semaglutide 2020-09 Yes [id number] Inject [facility] (OZEMPIC) 2-01 0.25 mg ity of 0.25 mg or 00:00: under the [place] 0.5 mg(2 00 skin Medical mg/1.5 mL) weekly. Branch PnIj semaglutide 2020-09 Yes [id number] Inject [facility] (OZEMPIC) 2-01 0.25 mg ity of 0.25 mg or 00:00: under the [place] 0.5 mg(2 00 skin Medical mg/1.5 mL) weekly. Branch PnIj semaglutide 2020-09 Yes [id number] Inject [facility] (OZEMPIC) 2-01 0.25 mg ity of 0.25 mg or 00:00: under the [place] 0.5 mg(2 00 skin Medical mg/1.5 mL) weekly. Branch PnIj semaglutide 2020-09 Yes [id number] Inject [facility] (OZEMPIC) 2-01 0.25 mg ity of 0.25 mg or 00:00: under the [place] 0.5 mg(2 00 skin Medical mg/1.5 mL) weekly. Branch PnIj semaglutide 2020-09 Yes [id number] Inject [facility] (OZEMPIC) 2-01 0.25 mg ity of 0.25 mg or 00:00: under the [place] 0.5 mg(2 00 skin Medical mg/1.5 mL) weekly. Branch PnIj semaglutide 2020-09 Yes [id number] Inject [facility] (OZEMPIC) 2-01 0.25 mg ity of 0.25 mg or 00:00: under the [place] 0.5 mg(2 00 skin Medical mg/1.5 mL) weekly. Branch PnIj semaglutide 2020-09 Yes [id number] Inject [facility] (OZEMPIC) 2-01 0.25 mg ity of 0.25 mg or 00:00: under the [place] 0.5 mg(2 00 skin Medical mg/1.5 mL) weekly. Branch PnIj semaglutide 2020-09 Yes [id number] Inject [facility] (OZEMPIC) 2-01 0.25 mg ity of 0.25 mg or 00:00: under the [place] 0.5 mg(2 00 skin Medical mg/1.5 mL) weekly. Branch PnIj semaglutide 2020-09 Yes [id number] Inject [facility] (OZEMPIC) 2-01 0.25 mg ity of 0.25 mg or 00:00: under the [place] 0.5 mg(2 00 skin Medical mg/1.5 mL) weekly. Branch PnIj semaglutide 2020-09 Yes [id number] Inject [facility] (OZEMPIC) 2-01 0.25 mg ity of 0.25 mg or 00:00: under the [place] 0.5 mg(2 00 skin Medical mg/1.5 mL) weekly. Branch RyIj semaglutide 2020-09 Yes [id number] Inject [facility] (OZEMPIC) 2-01 0.25 mg ity of 0.25 mg or 00:00: under the [place] 0.5 mg(2 00 skin Medical mg/1.5 mL) weekly. Branch RyIj semaglutide 2020-09 Yes [id number] Inject [facility] (OZEMPIC) 2-01 0.25 mg ity of 0.25 mg or 00:00: under the [place] 0.5 mg(2 00 skin Medical mg/1.5 mL) weekly. [place] RyIj semaglutide 2020-09 Yes [id number] Inject [facility] (OZEMPIC) 2-01 0.25 mg ity of 0.25 mg or 00:00: under the [place] 0.5 mg(2 00 skin Medical mg/1.5 mL) weekly. Branch RyIj semaglutide 2020-09 Yes [id number] Inject [facility] (OZEMPIC) 2-01 0.25 mg ity of 0.25 mg or 00:00: under the [place] 0.5 mg(2 00 skin Medical mg/1.5 mL) weekly. Branch PnIj semaglutide 2020-09 [id number] Inject [facility] (OZEMPIC) 2-01 10-13 0.25 mg ity of 0.25 mg or 00:00: 00:00 under the [place] 0.5 mg(2 00 :00 skin Medical mg/1.5 mL) weekly. Branch PnIj metformin 2020-09- No [id number] 500mg Take 1 [facility] ER 500 mg 10-27 tablet by ity of 24 hr 00:00: 00:00 mouth [place] tablet 00 :00 daily with Medical breakfast. Branch STOP REGULAR METFORMIN. metformin 2020-09- No [id number] 500mg Take 1 [facility] ER 500 mg 10-27 tablet by ity of 24 hr 00:00: 00:00 mouth [place] tablet 00 :00 daily with Medical breakfast. Branch STOP REGULAR METFORMIN. cyanocobala 2020-09 Yes [id number] 1000ug 1 mL by [facility] min 1,000 -09 Intramuscu ity of mcg/mL 00:00: lar route [place] injection 00 every 2 Medical (two) Branch weeks. levothyroxi 2020-09 Yes [id number] 50ug Take 1 [facility] ne 50 mcg - tablet by ity o f tablet 00:00: mouth [place] 00 every Medical morning. Branch fluticasone 2020-09 Yes [id number] 2{puff} Inhale 2 [facility] propionate -09 Puffs ity of (FLOVENT 00:00: every 12 [place] HFA) 110 00 (twelve) Medical mcg/actuati hours. Branch on inhaler Rinse mouth after each use. levalbutero 2020-09 Yes [id number] .63mg Inhale [facility] l 0.63 mg/3 1-09 0.63 mg 3 ity of mL 00:00: (three) [place] nebulizer 00 times Medical solution daily as Branch needed for Wheezing or Shortness of Breath. losartan 50 2020-09 Yes [id number] 50mg Take 1 [facility] mg tablet -09 tablet by ity o f 00:00: mouth 2 [place] 00 (two) Medical times Branch daily. clotrimazol 2020-09 Yes [id number] Apply to [facility] e-betametha -09 area(s) 2 ity of sone cream 00:00: (two) [place] 00 times Medical daily. Branch cyclobenzap 2020-09 Yes [id number] TAKE 1 [facility] rine 5 mg -09 TABLET BY ity o f tablet 00:00: MOUTH [place] 00 EVERY 8 Medical HOURS Branch NEEDED econazole 2020-09 Yes [id number] Apply to [facility] nitrate 1 % 1-09 area(s) 2 ity of cream 00:00: (two) [place] 00 times Medical daily. Branch albuterol 2020-09 Yes [id number] 2{puff} Inhale 2 [facility] (PROAIR 1-09 Puffs ity of HFA) 90 00:00: every 6 [place] mcg/actuati 00 (six) Medical on inhaler hours as Branc h needed for Wheezing or Shortness of Breath. triamcinolo 2020-09 Yes [id number] Apply to [facility] ne 0.025 % 10-04 area(s) 3 ity of ointment 00:00: (three) [place] 00 times Medical daily. For Branch itching diltiazem 2020-09 Yes [id number] 120mg Take 1 [facility] n[facility] (CARTIA XT) 09 capsule by it y of 120 mg 24 00:00: mouth 2 [place] hr capsule 00 (two) Medical times Branch daily. cyanocobala 2020-09 Yes [id number] 1000ug 1 mL by [facility] min 1,000 -09 Intramuscu ity of mcg/mL 00:00: lar route [place] injection 00 every 2 Medical (two) Branch weeks. levothyroxi 2020-09 Yes [id number] 50ug Take 1 [facility] ne 50 mcg -09 tablet by ity o f tablet 00:00: mouth [place] 00 every Medical morning. Branch fluticasone 2020-09 Yes [id number] 2{puff} Inhale 2 [facility] propionate 1-09 Puffs ity of (FLOVENT 00:00: every 12 [place] HFA) 110 00 (twelve) Medical mcg/actuati hours. Branch on inhaler Rinse mouth after each use. levalbutero 2020-09 Yes [id number] .63mg Inhale [facility] l 0.63 mg/3 1-09 0.63 mg 3 ity of mL 00:00: (three) [place] nebulizer 00 times Medical solution daily as Branch needed for Wheezing or Shortness of Breath. losartan 50 2020-09 Yes [id number] 50mg Take 1 [facility] mg tablet -09 tablet by ity o f 00:00: mouth 2 [place] 00 (two) Medical times Branch daily. clotrimazol 2020-09 Yes [id number] Apply to [facility] e-betametha 10-04 area(s) 2 ity of sone cream 00:00: (two) [place] 00 times Medical daily. Branch cyclobenzap 2020-09 Yes [id number] TAKE 1 [facility] rine 5 mg 1-09 TABLET BY ity o f tablet 00:00: MOUTH [place] 00 EVERY 8 Medical HOURS Branch NEEDED econazole 2020-09 Yes [id number] Apply to [facility] nitrate 1 % 09 area(s) 2 ity of cream 00:00: (two) [place] 00 times Medical daily. Branch albuterol 2020-09 Yes [id number] 2{puff} Inhale 2 [facility] (PROAIR 1-09 Puffs ity of HFA) 90 00:00: every 6 [place] mcg/actuati 00 (six) Medical on inhaler hours as Branc h needed for Wheezing or Shortness of Breath. triamcinolo 2020-09 Yes [id number] Apply to [facility] ne 0.025 % 09 area(s) 3 ity of ointment 00:00: (three) [place] 00 times Medical daily. For Branch itching diltiazem 2020-09 Yes [id number] 120mg Take 1 [facility] n[facility] (CARTIA XT) 09 capsule by it y of 120 mg 24 00:00: mouth 2 [place] hr capsule 00 (two) Medical times Branch daily. cyanocobala 2020-09 Yes [id number] 1000ug 1 mL by [facility] min 1,000 1-09 Intramuscu ity of mcg/mL 00:00: lar route [place] injection 00 every 2 Medical (two) Branch weeks. levothyroxi 2020-09 Yes [id number] 50ug Take 1 [facility] ne 50 mcg -09 tablet by ity o f tablet 00:00: mouth [place] 00 every Medical morning. Branch fluticasone 2020-09 Yes [id number] 2{puff} Inhale 2 [facility] propionate 1-09 Puffs ity of (FLOVENT 00:00: every 12 [place] HFA) 110 00 (twelve) Medical mcg/actuati hours. Branch on inhaler Rinse mouth after each use. levalbutero 2020-09 Yes [id number] .63mg Inhale [facility] l 0.63 mg/3 1-09 0.63 mg 3 ity of mL 00:00: (three) [place] nebulizer 00 times Medical solution daily as Branch needed for Wheezing or Shortness of Breath. losartan 50 2020-09 Yes [id number] 50mg Take 1 [facility] mg tablet 1-09 tablet by ity o f 00:00: mouth 2 [place] 00 (two) Medical times Branch daily. clotrimazol 2020-09 Yes [id number] Apply to [facility] e-betametha 09 area(s) 2 ity of sone cream 00:00: (two) [place] 00 times Medical daily. Branch cyclobenzap 2020-09 Yes [id number] TAKE 1 [facility] rine 5 mg -09 TABLET BY ity o f tablet 00:00: MOUTH [place] 00 EVERY 8 Medical HOURS Branch NEEDED econazole 2020-09 Yes [id number] Apply to [facility] nitrate 1 % 09 area(s) 2 ity of cream 00:00: (two) [place] 00 times Medical daily. Branch albuterol 2020-09 Yes [id number] 2{puff} Inhale 2 [facility] (PROAIR 1-09 Puffs ity of HFA) 90 00:00: every 6 [place] mcg/actuati 00 (six) Medical on inhaler hours as Branc h needed for Wheezing or Shortness of Breath. triamcinolo 2020-09 Yes [id number] Apply to [facility] ne 0.025 % 10-04 area(s) 3 ity of ointment 00:00: (three) [place] 00 times Medical daily. For Branch itching diltiazem 2020-09 Yes [id number] 120mg Take 1 [facility] nivers (CARTIA XT) -09 capsule by it y of 120 mg 24 00:00: mouth 2 [place] hr capsule 00 (two) Medical times Branch daily. cyanocobala 2020-09 Yes [id number] 1000ug 1 mL by [facility] min 1,000 -09 Intramuscu ity of mcg/mL 00:00: lar route [place] injection 00 every 2 Medical (two) Branch weeks. levothyroxi 2020-09 Yes [id number] 50ug Take 1 [facility] ne 50 mcg -09 tablet by ity o f tablet 00:00: mouth [place] 00 every Medical morning. Branch fluticasone 2020-09 Yes [id number] 2{puff} Inhale 2 [facility] propionate 1-09 Puffs ity of (FLOVENT 00:00: every 12 [place] HFA) 110 00 (twelve) Medical mcg/actuati hours. Branch on inhaler Rinse mouth after each use. levalbutero 2020-09 Yes [id number] .63mg Inhale [facility] l 0.63 mg/3 1-09 0.63 mg 3 ity of mL 00:00: (three) [place] nebulizer 00 times Medical solution daily as Branch needed for Wheezing or Shortness of Breath. losartan 50 2020-09 Yes [id number] 50mg Take 1 [facility] mg tablet -09 tablet by ity o f 00:00: mouth 2 [place] 00 (two) Medical times Branch daily. clotrimazol 2020-09 Yes [id number] Apply to [facility] e-betametha 09 area(s) 2 ity of sone cream 00:00: (two) [place] 00 times Medical daily. Branch cyclobenzap 2020-09 Yes [id number] TAKE 1 [facility] rine 5 mg 10-04 TABLET BY ity o f tablet 00:00: MOUTH [place] 00 EVERY 8 Medical HOURS Branch NEEDED econazole 2020-09 Yes [id number] Apply to [facility] nitrate 1 % 10-04 area(s) 2 ity of cream 00:00: (two) [place] 00 times Medical daily. Branch albuterol 2020-09 Yes [id number] 2{puff} Inhale 2 [facility] (PROAIR 1-09 Puffs ity of HFA) 90 00:00: every 6 [place] mcg/actuati 00 (six) Medical on inhaler hours as Branc h needed for Wheezing or Shortness of Breath. triamcinolo 2020-09 Yes [id number] Apply to [facility] ne 0.025 % 10-04 area(s) 3 ity of ointment 00:00: (three) [place] 00 times Medical daily. For Branch itching diltiazem 2020-09 Yes [id number] 120mg Take 1 [facility] nivers (CARTIA XT) 09 capsule by it y of 120 mg 24 00:00: mouth 2 [place] hr capsule 00 (two) Medical times Branch daily. cyanocobala 2020-09 Yes [id number] 1000ug 1 mL by [facility] min 1,000 -09 Intramuscu ity of mcg/mL 00:00: lar route [place] injection 00 every 2 Medical (two) Branch weeks. levothyroxi 2020-09 Yes [id number] 50ug Take 1 [facility] ne 50 mcg 1-09 tablet by ity o f tablet 00:00: mouth [place] 00 every Medical morning. Branch fluticasone 2020-09 Yes [id number] 2{puff} Inhale 2 [facility] propionate 1-09 Puffs ity of (FLOVENT 00:00: every 12 [place] HFA) 110 00 (twelve) Medical mcg/actuati hours. Branch on inhaler Rinse mouth after each use. levalbutero 2020-09 Yes [id number] .63mg Inhale [facility] l 0.63 mg/3 1-09 0.63 mg 3 ity of mL 00:00: (three) [place] nebulizer 00 times Medical solution daily as Branch needed for Wheezing or Shortness of Breath. clotrimazol 2020-09 Yes [id number] Apply to [facility] e-betametha -09 area(s) 2 ity of sone cream 00:00: (two) [place] 00 times Medical daily. Branch cyclobenzap 2020-09 Yes [id number] TAKE 1 [facility] rine 5 mg -09 TABLET BY ity o f tablet 00:00: MOUTH [place] 00 EVERY 8 Medical HOURS Branch NEEDED econazole 2020-09 Yes [id number] Apply to [facility] nitrate 1 % -09 area(s) 2 ity of cream 00:00: (two) [place] 00 times Medical daily. Branch albuterol 2020-09 Yes [id number] 2{puff} Inhale 2 [facility] (PROAIR 1-09 Puffs ity of HFA) 90 00:00: every 6 [place] mcg/actuati 00 (six) Medical on inhaler hours as Branc h needed for Wheezing or Shortness of Breath. triamcinolo 2020-09 Yes [id number] Apply to [facility] ne 0.025 % -09 area(s) 3 ity of ointment 00:00: (three) [place] 00 times Medical daily. For Branch itching cyanocobala 2020-09 Yes [id number] 1000ug 1 mL by [facility] min 1,000 1-09 Intramuscu ity of mcg/mL 00:00: lar route [place] injection 00 every 2 Medical (two) Branch weeks. levothyroxi 2020-09 Yes [id number] 50ug Take 1 [facility] ne 50 mcg 1-09 tablet by ity o f tablet 00:00: mouth [place] 00 every Medical morning. Branch fluticasone 2020-09 Yes [id number] 2{puff} Inhale 2 [facility] propionate 1-09 Puffs ity of (FLOVENT 00:00: every 12 [place] HFA) 110 00 (twelve) Medical mcg/actuati hours. Branch on inhaler Rinse mouth after each use. levalbutero 2020-09 Yes [id number] .63mg Inhale [facility] l 0.63 mg/3 1-09 0.63 mg 3 ity of mL 00:00: (three) [place] nebulizer 00 times Medical solution daily as Branch needed for Wheezing or Shortness of Breath. clotrimazol 2020-09 Yes [id number] Apply to [facility] e-betametha 1-09 area(s) 2 ity of sone cream 00:00: (two) [place] 00 times Medical daily. Branch cyclobenzap 2020-09 Yes [id number] TAKE 1 [facility] rine 5 mg -09 TABLET BY ity o f tablet 00:00: MOUTH [place] 00 EVERY 8 Medical HOURS Branch NEEDED econazole 2020-09 Yes [id number] Apply to [facility] nitrate 1 % 1-09 area(s) 2 ity of cream 00:00: (two) [place] 00 times Medical daily. Branch albuterol 2020-09 Yes [id number] 2{puff} Inhale 2 [facility] (PROAIR 1-09 Puffs ity of HFA) 90 00:00: every 6 [place] mcg/actuati 00 (six) Medical on inhaler hours as Branc h needed for Wheezing or Shortness of Breath. triamcinolo 2020-09 Yes [id number] Apply to [facility] ne 0.025 % 1-09 area(s) 3 ity of ointment 00:00: (three) [place] 00 times Medical daily. For Branch itching cyanocobala 2020-09 Yes [id number] 1000ug 1 mL by [facility] min 1,000 1-09 Intramuscu ity of mcg/mL 00:00: lar route [place] injection 00 every 2 Medical (two) Branch weeks. levothyroxi 2020-09 Yes [id number] 50ug Take 1 [facility] ne 50 mcg 1-09 tablet by ity o f tablet 00:00: mouth [place] 00 every Medical morning. Branch fluticasone 2020-09 Yes [id number] 2{puff} Inhale 2 [facility] propionate 1-09 Puffs ity of (FLOVENT 00:00: every 12 [place] HFA) 110 00 (twelve) Medical mcg/actuati hours. Branch on inhaler Rinse mouth after each use. levalbutero 2020-09 Yes [id number] .63mg Inhale [facility] l 0.63 mg/3 1-09 0.63 mg 3 ity of mL 00:00: (three) [place] nebulizer 00 times Medical solution daily as Branch needed for Wheezing or Shortness of Breath. clotrimazol 2020-09 Yes [id number] Apply to [facility] e-betametha -09 area(s) 2 ity of sone cream 00:00: (two) [place] 00 times Medical daily. Branch cyclobenzap 2020-09 Yes [id number] TAKE 1 [facility] rine 5 mg -09 TABLET BY ity o f tablet 00:00: MOUTH [place] 00 EVERY 8 Medical HOURS Branch NEEDED econazole 2020-09 Yes [id number] Apply to [facility] nitrate 1 % -09 area(s) 2 ity of cream 00:00: (two) [place] 00 times Medical daily. Branch albuterol 2020-09 Yes [id number] 2{puff} Inhale 2 [facility] (PROAIR 1-09 Puffs ity of HFA) 90 00:00: every 6 [place] mcg/actuati 00 (six) Medical on inhaler hours as Branc h needed for Wheezing or Shortness of Breath. triamcinolo 2020-09 Yes [id number] Apply to [facility] ne 0.025 % -09 area(s) 3 ity of ointment 00:00: (three) [place] 00 times Medical daily. For Branch itching cyanocobala 2020-09 Yes [id number] 1000ug 1 mL by [facility] min 1,000 1-09 Intramuscu ity of mcg/mL 00:00: lar route [place] injection 00 every 2 Medical (two) Branch weeks. levothyroxi 2020-09 Yes [id number] 50ug Take 1 [facility] ne 50 mcg 1-09 tablet by ity o f tablet 00:00: mouth [place] 00 every Medical morning. Branch fluticasone 2020-09 Yes [id number] 2{puff} Inhale 2 [facility] propionate 1-09 Puffs ity of (FLOVENT 00:00: every 12 [place] HFA) 110 00 (twelve) Medical mcg/actuati hours. Branch on inhaler Rinse mouth after each use. levalbutero 2020-09 Yes [id number] .63mg Inhale [facility] l 0.63 mg/3 1-09 0.63 mg 3 ity of mL 00:00: (three) [place] nebulizer 00 times Medical solution daily as Branch needed for Wheezing or Shortness of Breath. clotrimazol 2020-09 Yes [id number] Apply to [facility] e-betametha -09 area(s) 2 ity of sone cream 00:00: (two) [place] 00 times Medical daily. Branch cyclobenzap 2020-09 Yes [id number] TAKE 1 [facility] rine 5 mg -09 TABLET BY ity o f tablet 00:00: MOUTH [place] 00 EVERY 8 Medical HOURS Branch NEEDED econazole 2020-09 Yes [id number] Apply to [facility] nitrate 1 % 10-04 area(s) 2 ity of cream 00:00: (two) [place] 00 times Medical daily. Branch albuterol 2020-09 Yes [id number] 2{puff} Inhale 2 [facility] (PROAIR 1-09 Puffs ity of HFA) 90 00:00: every 6 [place] mcg/actuati 00 (six) Medical on inhaler hours as Branc h needed for Wheezing or Shortness of Breath. triamcinolo 2020-09 Yes [id number] Apply to [facility] ne 0.025 % 09 area(s) 3 ity of ointment 00:00: (three) [place] 00 times Medical daily. For Branch itching cyanocobala 2020-09 Yes [id number] 1000ug 1 mL by [facility] min 1,000 -09 Intramuscu ity of mcg/mL 00:00: lar route [place] injection 00 every 2 Medical (two) Branch weeks. levothyroxi 2020-09 Yes [id number] 50ug Take 1 [facility] ne 50 mcg 1-09 tablet by ity o f tablet 00:00: mouth [place] 00 every Medical morning. Branch fluticasone 2020-09 Yes [id number] 2{puff} Inhale 2 [facility] propionate 1-09 Puffs ity of (FLOVENT 00:00: every 12 [place] HFA) 110 00 (twelve) Medical mcg/actuati hours. Branch on inhaler Rinse mouth after each use. levalbutero 2020-09 Yes [id number] .63mg Inhale [facility] l 0.63 mg/3 1-09 0.63 mg 3 ity of mL 00:00: (three) [place] nebulizer 00 times Medical solution daily as Branch needed for Wheezing or Shortness of Breath. clotrimazol 2020-09 Yes [id number] Apply to [facility] e-betametha 09 area(s) 2 ity of sone cream 00:00: (two) [place] 00 times Medical daily. Branch cyclobenzap 2020-09 Yes [id number] TAKE 1 [facility] rine 5 mg 09 TABLET BY ity o f tablet 00:00: MOUTH [place] 00 EVERY 8 Medical HOURS Branch NEEDED econazole 2020-09 Yes [id number] Apply to [facility] nitrate 1 % 09 area(s) 2 ity of cream 00:00: (two) [place] 00 times Medical daily. Branch albuterol 2020-09 Yes [id number] 2{puff} Inhale 2 [facility] (PROAIR 1-09 Puffs ity of HFA) 90 00:00: every 6 [place] mcg/actuati 00 (six) Medical on inhaler hours as Branc h needed for Wheezing or Shortness of Breath. triamcinolo 2020-09 Yes [id number] Apply to [facility] ne 0.025 % 10-04 area(s) 3 ity of ointment 00:00: (three) [place] 00 times Medical daily. For Branch itching cyanocobala 2020-09 Yes [id number] 1000ug 1 mL by [facility] min 1,000 -09 Intramuscu ity of mcg/mL 00:00: lar route [place] injection 00 every 2 Medical (two) Branch weeks. levothyroxi 2020-09 Yes [id number] 50ug Take 1 [facility] ne 50 mcg -09 tablet by ity o f tablet 00:00: mouth [place] 00 every Medical morning. Branch fluticasone 2020-09 Yes [id number] 2{puff} Inhale 2 [facility] propionate 1-09 Puffs ity of (FLOVENT 00:00: every 12 [place] HFA) 110 00 (twelve) Medical mcg/actuati hours. Branch on inhaler Rinse mouth after each use. levalbutero 2020-09 Yes [id number] .63mg Inhale [facility] l 0.63 mg/3 1-09 0.63 mg 3 ity of mL 00:00: (three) [place] nebulizer 00 times Medical solution daily as Branch needed for Wheezing or Shortness of Breath. clotrimazol 2020-09 Yes [id number] Apply to [facility] e-betametha -09 area(s) 2 ity of sone cream 00:00: (two) [place] 00 times Medical daily. Branch cyclobenzap 2020-09 Yes [id number] TAKE 1 [facility] rine 5 mg 1-09 TABLET BY ity o f tablet 00:00: MOUTH [place] 00 EVERY 8 Medical HOURS Branch NEEDED econazole 2020-09 Yes [id number] Apply to [facility] nitrate 1 % -09 area(s) 2 ity of cream 00:00: (two) [place] 00 times Medical daily. Branch albuterol 2020-09 Yes [id number] 2{puff} Inhale 2 [facility] (PROAIR 1-09 Puffs ity of HFA) 90 00:00: every 6 [place] mcg/actuati 00 (six) Medical on inhaler hours as Branc h needed for Wheezing or Shortness of Breath. triamcinolo 2020-09 Yes [id number] Apply to [facility] ne 0.025 % 09 area(s) 3 ity of ointment 00:00: (three) [place] 00 times Medical daily. For Branch itching cyanocobala 2020-09 Yes [id number] 1000ug 1 mL by [facility] min 1,000 1-09 Intramuscu ity of mcg/mL 00:00: lar route [place] injection 00 every 2 Medical (two) Branch weeks. levothyroxi 2020-09 Yes [id number] 50ug Take 1 [facility] ne 50 mcg 1-09 tablet by ity o f tablet 00:00: mouth [place] 00 every Medical morning. Branch fluticasone 2020-09 Yes [id number] 2{puff} Inhale 2 [facility] propionate 1-09 Puffs ity of (FLOVENT 00:00: every 12 [place] HFA) 110 00 (twelve) Medical mcg/actuati hours. Branch on inhaler Rinse mouth after each use. levalbutero 2020-09 Yes [id number] .63mg Inhale [facility] l 0.63 mg/3 1-09 0.63 mg 3 ity of mL 00:00: (three) [place] nebulizer 00 times Medical solution daily as Branch needed for Wheezing or Shortness of Breath. clotrimazol 2020-09 Yes [id number] Apply to [facility] e-betametha -09 area(s) 2 ity of sone cream 00:00: (two) [place] 00 times Medical daily. Branch cyclobenzap 2020-09 Yes [id number] TAKE 1 [facility] rine 5 mg -09 TABLET BY ity o f tablet 00:00: MOUTH [place] 00 EVERY 8 Medical HOURS Branch NEEDED econazole 2020-09 Yes [id number] Apply to [facility] nitrate 1 % 09 area(s) 2 ity of cream 00:00: (two) [place] 00 times Medical daily. Branch albuterol 2020-09 Yes [id number] 2{puff} Inhale 2 [facility] (PROAIR 1-09 Puffs ity of HFA) 90 00:00: every 6 [place] mcg/actuati 00 (six) Medical on inhaler hours as Branc h needed for Wheezing or Shortness of Breath. triamcinolo 2020-09 Yes [id number] Apply to [facility] ne 0.025 % 09 area(s) 3 ity of ointment 00:00: (three) [place] 00 times Medical daily. For Branch itching cyanocobala 2020-09 Yes [id number] 1000ug 1 mL by [facility] min 1,000 1-09 Intramuscu ity of mcg/mL 00:00: lar route [place] injection 00 every 2 Medical (two) Branch weeks. levothyroxi 2020-09 Yes [id number] 50ug Take 1 [facility] ne 50 mcg -09 tablet by ity o f tablet 00:00: mouth [place] 00 every Medical morning. Branch fluticasone 2020-09 Yes [id number] 2{puff} Inhale 2 [facility] propionate 1-09 Puffs ity of (FLOVENT 00:00: every 12 [place] HFA) 110 00 (twelve) Medical mcg/actuati hours. Branch on inhaler Rinse mouth after each use. levalbutero 2020-09 Yes [id number] .63mg Inhale [facility] l 0.63 mg/3 1-09 0.63 mg 3 ity of mL 00:00: (three) [place] nebulizer 00 times Medical solution daily as Branch needed for Wheezing or Shortness of Breath. clotrimazol 2020-09 Yes [id number] Apply to [facility] e-betametha 09 area(s) 2 ity of sone cream 00:00: (two) [place] 00 times Medical daily. Branch cyclobenzap 2020-09 Yes [id number] TAKE 1 [facility] rine 5 mg -09 TABLET BY ity o f tablet 00:00: MOUTH [place] 00 EVERY 8 Medical HOURS Branch NEEDED econazole 2020-09 Yes [id number] Apply to [facility] nitrate 1 % 09 area(s) 2 ity of cream 00:00: (two) [place] 00 times Medical daily. Branch albuterol 2020-09 Yes [id number] 2{puff} Inhale 2 [facility] (PROAIR 1-09 Puffs ity of HFA) 90 00:00: every 6 [place] mcg/actuati 00 (six) Medical on inhaler hours as Branc h needed for Wheezing or Shortness of Breath. triamcinolo 2020-09 Yes [id number] Apply to [facility] ne 0.025 % 09 area(s) 3 ity of ointment 00:00: (three) [place] 00 times Medical daily. For Branch itching cyanocobala 2020-09 Yes [id number] 1000ug 1 mL by [facility] min 1,000 1-09 Intramuscu ity of mcg/mL 00:00: lar route [place] injection 00 every 2 Medical (two) Branch weeks. levothyroxi 2020-09 Yes [id number] 50ug Take 1 [facility] ne 50 mcg 09 tablet by ity o f tablet 00:00: mouth [place] 00 every Medical morning. Branch fluticasone 2020-09 Yes [id number] 2{puff} Inhale 2 [facility] propionate 1-09 Puffs ity of (FLOVENT 00:00: every 12 [place] HFA) 110 00 (twelve) Medical mcg/actuati hours. Branch on inhaler Rinse mouth after each use. levalbutero 2020-09 Yes [id number] .63mg Inhale [facility] l 0.63 mg/3 1-09 0.63 mg 3 ity of mL 00:00: (three) [place] nebulizer 00 times Medical solution daily as Branch needed for Wheezing or Shortness of Breath. clotrimazol 2020-09 Yes [id number] Apply to [facility] e-betametha -09 area(s) 2 ity of sone cream 00:00: (two) [place] 00 times Medical daily. Branch cyclobenzap 2020-09 Yes [id number] TAKE 1 [facility] rine 5 mg 1-09 TABLET BY ity o f tablet 00:00: MOUTH [place] 00 EVERY 8 Medical HOURS Branch NEEDED econazole 2020-09 Yes [id number] Apply to [facility] nitrate 1 % -09 area(s) 2 ity of cream 00:00: (two) [place] 00 times Medical daily. Branch albuterol 2020-09 Yes [id number] 2{puff} Inhale 2 [facility] (PROAIR 1-09 Puffs ity of HFA) 90 00:00: every 6 [place] mcg/actuati 00 (six) Medical on inhaler hours as Branc h needed for Wheezing or Shortness of Breath. triamcinolo 2020-09 Yes [id number] Apply to [facility] ne 0.025 % -09 area(s) 3 ity of ointment 00:00: (three) [place] 00 times Medical daily. For Branch itching cyanocobala 2020-09 Yes [id number] 1000ug 1 mL by [facility] min 1,000 1-09 Intramuscu ity of mcg/mL 00:00: lar route [place] injection 00 every 2 Medical (two) Branch weeks. levothyroxi 2020-09 Yes [id number] 50ug Take 1 [facility] ne 50 mcg -09 tablet by ity o f tablet 00:00: mouth [place] 00 every Medical morning. Branch fluticasone 2020-09 Yes [id number] 2{puff} Inhale 2 [facility] propionate 1-09 Puffs ity of (FLOVENT 00:00: every 12 [place] HFA) 110 00 (twelve) Medical mcg/actuati hours. Branch on inhaler Rinse mouth after each use. levalbutero 2020-09 Yes [id number] .63mg Inhale [facility] l 0.63 mg/3 1-09 0.63 mg 3 ity of mL 00:00: (three) [place] nebulizer 00 times Medical solution daily as Branch needed for Wheezing or Shortness of Breath. clotrimazol 2020-09 Yes [id number] Apply to [facility] e-betametha -09 area(s) 2 ity of sone cream 00:00: (two) [place] 00 times Medical daily. Branch cyclobenzap 2020-09 Yes [id number] TAKE 1 [facility] rine 5 mg 1-09 TABLET BY ity o f tablet 00:00: MOUTH [place] 00 EVERY 8 Medical HOURS Branch NEEDED econazole 2020-09 Yes [id number] Apply to [facility] nitrate 1 % -09 area(s) 2 ity of cream 00:00: (two) [place] 00 times Medical daily. Branch albuterol 2020-09 Yes [id number] 2{puff} Inhale 2 [facility] (PROAIR 1-09 Puffs ity of HFA) 90 00:00: every 6 [place] mcg/actuati 00 (six) Medical on inhaler hours as Branc h needed for Wheezing or Shortness of Breath. triamcinolo 2020-09 Yes [id number] Apply to [facility] ne 0.025 % 10-04 area(s) 3 ity of ointment 00:00: (three) [place] 00 times Medical daily. For Branch itching cyanocobala 2020-09 Yes [id number] 1000ug 1 mL by [facility] min 1,000 1-09 Intramuscu ity of mcg/mL 00:00: lar route [place] injection 00 every 2 Medical (two) Branch weeks. levothyroxi 2020-09 Yes [id number] 50ug Take 1 [facility] ne 50 mcg -09 tablet by ity o f tablet 00:00: mouth [place] 00 every Medical morning. Branch fluticasone 2020-09 Yes [id number] 2{puff} Inhale 2 [facility] propionate 1-09 Puffs ity of (FLOVENT 00:00: every 12 [place] HFA) 110 00 (twelve) Medical mcg/actuati hours. Branch on inhaler Rinse mouth after each use. levalbutero 2020-09 Yes [id number] .63mg Inhale [facility] l 0.63 mg/3 1-09 0.63 mg 3 ity of mL 00:00: (three) [place] nebulizer 00 times Medical solution daily as Branch needed for Wheezing or Shortness of Breath. clotrimazol 2020-09 Yes [id number] Apply to [facility] e-betametha -09 area(s) 2 ity of sone cream 00:00: (two) [place] 00 times Medical daily. Branch cyclobenzap 2020-09 Yes [id number] TAKE 1 [facility] rine 5 mg 1-09 TABLET BY ity o f tablet 00:00: MOUTH [place] 00 EVERY 8 Medical HOURS Branch NEEDED econazole 2020-09 Yes [id number] Apply to [facility] nitrate 1 % -09 area(s) 2 ity of cream 00:00: (two) [place] 00 times Medical daily. Branch albuterol 2020-09 Yes [id number] 2{puff} Inhale 2 [facility] (PROAIR 1-09 Puffs ity of HFA) 90 00:00: every 6 [place] mcg/actuati 00 (six) Medical on inhaler hours as Branc h needed for Wheezing or Shortness of Breath. triamcinolo 2020-09 Yes [id number] Apply to [facility] ne 0.025 % 09 area(s) 3 ity of ointment 00:00: (three) [place] 00 times Medical daily. For Branch itching cyanocobala 2020-09 Yes [id number] 1000ug 1 mL by [facility] min 1,000 -09 Intramuscu ity of mcg/mL 00:00: lar route [place] injection 00 every 2 Medical (two) Branch weeks. levothyroxi 2020-09 Yes [id number] 50ug Take 1 [facility] ne 50 mcg -09 tablet by ity o f tablet 00:00: mouth [place] 00 every Medical morning. Branch fluticasone 2020-09 Yes [id number] 2{puff} Inhale 2 [facility] propionate 1-09 Puffs ity of (FLOVENT 00:00: every 12 [place] HFA) 110 00 (twelve) Medical mcg/actuati hours. Branch on inhaler Rinse mouth after each use. levalbutero 2020-09 Yes [id number] .63mg Inhale [facility] l 0.63 mg/3 1-09 0.63 mg 3 ity of mL 00:00: (three) [place] nebulizer 00 times Medical solution daily as Branch needed for Wheezing or Shortness of Breath. clotrimazol 2020-09 Yes [id number] Apply to [facility] e-betametha -09 area(s) 2 ity of sone cream 00:00: (two) [place] 00 times Medical daily. Branch cyclobenzap 2020-09 Yes [id number] TAKE 1 [facility] rine 5 mg 1-09 TABLET BY ity o f tablet 00:00: MOUTH [place] 00 EVERY 8 Medical HOURS Branch NEEDED econazole 2020-09 Yes [id number] Apply to [facility] nitrate 1 % -09 area(s) 2 ity of cream 00:00: (two) [place] 00 times Medical daily. Branch albuterol 2020-09 Yes [id number] 2{puff} Inhale 2 [facility] (PROAIR 1-09 Puffs ity of HFA) 90 00:00: every 6 [place] mcg/actuati 00 (six) Medical on inhaler hours as Branc h needed for Wheezing or Shortness of Breath. triamcinolo 2020-09 Yes [id number] Apply to [facility] ne 0.025 % 09 area(s) 3 ity of ointment 00:00: (three) [place] 00 times Medical daily. For Branch itching cyanocobala 2020-09 Yes [id number] 1000ug 1 mL by [facility] min 1,000 1-09 Intramuscu ity of mcg/mL 00:00: lar route [place] injection 00 every 2 Medical (two) Branch weeks. levothyroxi 2020-09 Yes [id number] 50ug Take 1 [facility] ne 50 mcg 1-09 tablet by ity o f tablet 00:00: mouth [place] 00 every Medical morning. Branch fluticasone 2020-09 Yes [id number] 2{puff} Inhale 2 [facility] propionate 1-09 Puffs ity of (FLOVENT 00:00: every 12 [place] HFA) 110 00 (twelve) Medical mcg/actuati hours. Branch on inhaler Rinse mouth after each use. levalbutero 2020-09 Yes [id number] .63mg Inhale [facility] l 0.63 mg/3 1-09 0.63 mg 3 ity of mL 00:00: (three) [place] nebulizer 00 times Medical solution daily as Branch needed for Wheezing or Shortness of Breath. clotrimazol 2020-09 Yes [id number] Apply to [facility] e-betametha 1-09 area(s) 2 ity of sone cream 00:00: (two) [place] 00 times Medical daily. Branch cyclobenzap 2020-09 Yes [id number] TAKE 1 [facility] rine 5 mg 1-09 TABLET BY ity o f tablet 00:00: MOUTH [place] 00 EVERY 8 Medical HOURS Branch NEEDED econazole 2020-09 Yes [id number] Apply to [facility] nitrate 1 % -09 area(s) 2 ity of cream 00:00: (two) [place] 00 times Medical daily. Branch albuterol 2020-09 Yes [id number] 2{puff} Inhale 2 [facility] (PROAIR 1-09 Puffs ity of HFA) 90 00:00: every 6 [place] mcg/actuati 00 (six) Medical on inhaler hours as Branc h needed for Wheezing or Shortness of Breath. triamcinolo 2020-09 Yes [id number] Apply to [facility] ne 0.025 % -09 area(s) 3 ity of ointment 00:00: (three) [place] 00 times Medical daily. For Branch itching cyanocobala 2020-09 Yes [id number] 1000ug 1 mL by [facility] min 1,000 -09 Intramuscu ity of mcg/mL 00:00: lar route [place] injection 00 every 2 Medical (two) Branch weeks. levothyroxi 2020-09 Yes [id number] 50ug Take 1 [facility] ne 50 mcg -09 tablet by ity o f tablet 00:00: mouth [place] 00 every Medical morning. Branch fluticasone 2020-09 Yes [id number] 2{puff} Inhale 2 [facility] propionate 1-09 Puffs ity of (FLOVENT 00:00: every 12 [place] HFA) 110 00 (twelve) Medical mcg/actuati hours. Branch on inhaler Rinse mouth after each use. levalbutero 2020-09 Yes [id number] .63mg Inhale [facility] l 0.63 mg/3 1-09 0.63 mg 3 ity of mL 00:00: (three) [place] nebulizer 00 times Medical solution daily as Branch needed for Wheezing or Shortness of Breath. clotrimazol 2020-09 Yes [id number] Apply to [facility] e-betametha -09 area(s) 2 ity of sone cream 00:00: (two) [place] 00 times Medical daily. Branch cyclobenzap 2020-09 Yes [id number] TAKE 1 [facility] rine 5 mg 1-09 TABLET BY ity o f tablet 00:00: MOUTH [place] 00 EVERY 8 Medical HOURS Branch NEEDED econazole 2020-09 Yes [id number] Apply to [facility] nitrate 1 % -09 area(s) 2 ity of cream 00:00: (two) [place] 00 times Medical daily. Branch albuterol 2020-09 Yes [id number] 2{puff} Inhale 2 [facility] (PROAIR 1-09 Puffs ity of HFA) 90 00:00: every 6 [place] mcg/actuati 00 (six) Medical on inhaler hours as Branc h needed for Wheezing or Shortness of Breath. triamcinolo 2020-09 Yes [id number] Apply to [facility] ne 0.025 % -09 area(s) 3 ity of ointment 00:00: (three) [place] 00 times Medical daily. For Branch itching cyanocobala 2020-09 Yes [id number] 1000ug 1 mL by [facility] min 1,000 -09 Intramuscu ity of mcg/mL 00:00: lar route [place] injection 00 every 2 Medical (two) Branch weeks. levothyroxi 2020-09 Yes [id number] 50ug Take 1 [facility] ne 50 mcg - tablet by ity o f tablet 00:00: mouth [place] 00 every Medical morning. Branch fluticasone 2020-09 Yes [id number] 2{puff} Inhale 2 [facility] propionate 1-09 Puffs ity of (FLOVENT 00:00: every 12 [place] HFA) 110 00 (twelve) Medical mcg/actuati hours. Branch on inhaler Rinse mouth after each use. levalbutero 2020-09 Yes [id number] .63mg Inhale [facility] l 0.63 mg/3 1-09 0.63 mg 3 ity of mL 00:00: (three) [place] nebulizer 00 times Medical solution daily as Branch needed for Wheezing or Shortness of Breath. clotrimazol 2020-09 Yes [id number] Apply to [facility] e-betametha -09 area(s) 2 ity of sone cream 00:00: (two) [place] 00 times Medical daily. Branch cyclobenzap 2020-09 Yes [id number] TAKE 1 [facility] rine 5 mg -09 TABLET BY ity o f tablet 00:00: MOUTH [place] 00 EVERY 8 Medical HOURS Branch NEEDED econazole 2020-09 Yes [id number] Apply to [facility] nitrate 1 % -09 area(s) 2 ity of cream 00:00: (two) [place] 00 times Medical daily. Branch albuterol 2020-09 Yes [id number] 2{puff} Inhale 2 [facility] (PROAIR 1-09 Puffs ity of HFA) 90 00:00: every 6 [place] mcg/actuati 00 (six) Medical on inhaler hours as Branc h needed for Wheezing or Shortness of Breath. triamcinolo 2020-09 Yes [id number] Apply to [facility] ne 0.025 % 1-09 area(s) 3 ity of ointment 00:00: (three) [place] 00 times Medical daily. For Branch itching cyanocobala 2020-09 Yes [id number] 1000ug 1 mL by [facility] min 1,000 1-09 Intramuscu ity of mcg/mL 00:00: lar route [place] injection 00 every 2 Medical (two) Branch weeks. levothyroxi 2020-09 Yes [id number] 50ug Take 1 [facility] ne 50 mcg 1-09 tablet by ity o f tablet 00:00: mouth [place] 00 every Medical morning. Branch fluticasone 2020-09 Yes [id number] 2{puff} Inhale 2 [facility] propionate 1-09 Puffs ity of (FLOVENT 00:00: every 12 [place] HFA) 110 00 (twelve) Medical mcg/actuati hours. Branch on inhaler Rinse mouth after each use. levalbutero 2020-09 Yes [id number] .63mg Inhale [facility] l 0.63 mg/3 1-09 0.63 mg 3 ity of mL 00:00: (three) [place] nebulizer 00 times Medical solution daily as Branch needed for Wheezing or Shortness of Breath. clotrimazol 2020-09 Yes [id number] Apply to [facility] e-betametha 1-09 area(s) 2 ity of sone cream 00:00: (two) [place] 00 times Medical daily. Branch cyclobenzap 2020-09 Yes [id number] TAKE 1 [facility] rine 5 mg 1-09 TABLET BY ity o f tablet 00:00: MOUTH [place] 00 EVERY 8 Medical HOURS Branch NEEDED econazole 2020-09 Yes [id number] Apply to [facility] nitrate 1 % 1-09 area(s) 2 ity of cream 00:00: (two) [place] 00 times Medical daily. Branch albuterol 2020-09 Yes [id number] 2{puff} Inhale 2 [facility] (PROAIR 1-09 Puffs ity of HFA) 90 00:00: every 6 [place] mcg/actuati 00 (six) Medical on inhaler hours as Branc h needed for Wheezing or Shortness of Breath. triamcinolo 2020-09 Yes [id number] Apply to [facility] ne 0.025 % 1-09 area(s) 3 ity of ointment 00:00: (three) [place] 00 times Medical daily. For Branch itching cyanocobala 2020-09 Yes [id number] 1000ug 1 mL by [facility] min 1,000 1-09 Intramuscu ity of mcg/mL 00:00: lar route [place] injection 00 every 2 Medical (two) Branch weeks. levothyroxi 2020-09 Yes [id number] 50ug Take 1 [facility] ne 50 mcg 1-09 tablet by ity o f tablet 00:00: mouth [place] 00 every Medical morning. Branch fluticasone 2020-09 Yes [id number] 2{puff} Inhale 2 [facility] propionate 1-09 Puffs ity of (FLOVENT 00:00: every 12 [place] HFA) 110 00 (twelve) Medical mcg/actuati hours. Branch on inhaler Rinse mouth after each use. levalbutero 2020-09 Yes [id number] .63mg Inhale [facility] l 0.63 mg/3 1-09 0.63 mg 3 ity of mL 00:00: (three) [place] nebulizer 00 times Medical solution daily as Branch needed for Wheezing or Shortness of Breath. clotrimazol 2020-09 Yes [id number] Apply to [facility] e-betametha -09 area(s) 2 ity of sone cream 00:00: (two) [place] 00 times Medical daily. Branch cyclobenzap 2020-09 Yes [id number] TAKE 1 [facility] rine 5 mg 1-09 TABLET BY ity o f tablet 00:00: MOUTH [place] 00 EVERY 8 Medical HOURS Branch NEEDED econazole 2020-09 Yes [id number] Apply to [facility] nitrate 1 % 1-09 area(s) 2 ity of cream 00:00: (two) [place] 00 times Medical daily. Branch albuterol 2020-09 Yes [id number] 2{puff} Inhale 2 [facility] (PROAIR 1-09 Puffs ity of HFA) 90 00:00: every 6 [place] mcg/actuati 00 (six) Medical on inhaler hours as Branc h needed for Wheezing or Shortness of Breath. triamcinolo 2020-09 Yes [id number] Apply to [facility] ne 0.025 % 1-09 area(s) 3 ity of ointment 00:00: (three) [place] 00 times Medical daily. For Branch itching cyanocobala 2020-09 Yes [id number] 1000ug 1 mL by [facility] min 1,000 1-09 Intramuscu ity of mcg/mL 00:00: lar route [place] injection 00 every 2 Medical (two) Branch weeks. levothyroxi 2020-09 Yes [id number] 50ug Take 1 [facility] ne 50 mcg 1-09 tablet by ity o f tablet 00:00: mouth [place] 00 every Medical morning. Branch fluticasone 2020-09 Yes [id number] 2{puff} Inhale 2 [facility] propionate 1-09 Puffs ity of (FLOVENT 00:00: every 12 [place] HFA) 110 00 (twelve) Medical mcg/actuati hours. Branch on inhaler Rinse mouth after each use. levalbutero 2020-09 Yes [id number] .63mg Inhale [facility] l 0.63 mg/3 1-09 0.63 mg 3 ity of mL 00:00: (three) [place] nebulizer 00 times Medical solution daily as Branch needed for Wheezing or Shortness of Breath. clotrimazol 2020-09 Yes [id number] Apply to [facility] e-betametha 09 area(s) 2 ity of sone cream 00:00: (two) [place] 00 times Medical daily. Branch cyclobenzap 2020-09 Yes [id number] TAKE 1 [facility] rine 5 mg 1-09 TABLET BY ity o f tablet 00:00: MOUTH [place] 00 EVERY 8 Medical HOURS Branch NEEDED econazole 2020-09 Yes [id number] Apply to [facility] nitrate 1 % 1-09 area(s) 2 ity of cream 00:00: (two) [place] 00 times Medical daily. Branch albuterol 2020-09 Yes [id number] 2{puff} Inhale 2 [facility] (PROAIR 1-09 Puffs ity of HFA) 90 00:00: every 6 [place] mcg/actuati 00 (six) Medical on inhaler hours as Branc h needed for Wheezing or Shortness of Breath. triamcinolo 2020-09 Yes [id number] Apply to [facility] ne 0.025 % 1-09 area(s) 3 ity of ointment 00:00: (three) [place] 00 times Medical daily. For Branch itching cyanocobala 2020-09 Yes [id number] 1000ug 1 mL by [facility] min 1,000 1-09 Intramuscu ity of mcg/mL 00:00: lar route [place] injection 00 every 2 Medical (two) Branch weeks. levothyroxi 2020-09 Yes [id number] 50ug Take 1 [facility] ne 50 mcg 1-09 tablet by ity o f tablet 00:00: mouth [place] 00 every Medical morning. Branch fluticasone 2020-09 Yes [id number] 2{puff} Inhale 2 [facility] propionate 1-09 Puffs ity of (FLOVENT 00:00: every 12 [place] HFA) 110 00 (twelve) Medical mcg/actuati hours. Branch on inhaler Rinse mouth after each use. levalbutero 2020-09 Yes [id number] .63mg Inhale [facility] l 0.63 mg/3 1-09 0.63 mg 3 ity of mL 00:00: (three) [place] nebulizer 00 times Medical solution daily as Branch needed for Wheezing or Shortness of Breath. clotrimazol 2020-09 Yes [id number] Apply to [facility] e-betametha -09 area(s) 2 ity of sone cream 00:00: (two) [place] 00 times Medical daily. Branch cyclobenzap 2020-09 Yes [id number] TAKE 1 [facility] rine 5 mg 1-09 TABLET BY ity o f tablet 00:00: MOUTH [place] 00 EVERY 8 Medical HOURS Branch NEEDED econazole 2020-09 Yes [id number] Apply to [facility] nitrate 1 % 1-09 area(s) 2 ity of cream 00:00: (two) [place] 00 times Medical daily. Branch albuterol 2020-09 Yes [id number] 2{puff} Inhale 2 [facility] (PROAIR 1-09 Puffs ity of HFA) 90 00:00: every 6 [place] mcg/actuati 00 (six) Medical on inhaler hours as Branc h needed for Wheezing or Shortness of Breath. triamcinolo 2020-09 Yes [id number] Apply to [facility] ne 0.025 % -09 area(s) 3 ity of ointment 00:00: (three) [place] 00 times Medical daily. For Branch itching cyanocobala 2020-09 Yes [id number] 1000ug 1 mL by [facility] min 1,000 -09 Intramuscu ity of mcg/mL 00:00: lar route [place] injection 00 every 2 Medical (two) Branch weeks. levothyroxi 2020-09 Yes [id number] 50ug Take 1 [facility] ne 50 mcg -09 tablet by ity o f tablet 00:00: mouth [place] 00 every Medical morning. Branch fluticasone 2020-09 Yes [id number] 2{puff} Inhale 2 [facility] propionate 1-09 Puffs ity of (FLOVENT 00:00: every 12 [place] HFA) 110 00 (twelve) Medical mcg/actuati hours. Branch on inhaler Rinse mouth after each use. levalbutero 2020-09 Yes [id number] .63mg Inhale [facility] l 0.63 mg/3 -09 0.63 mg 3 ity of mL 00:00: (three) [place] nebulizer 00 times Medical solution daily as Branch needed for Wheezing or Shortness of Breath. clotrimazol 2020-09 Yes [id number] Apply to [facility] e-betametha 10-04 area(s) 2 ity of sone cream 00:00: (two) [place] 00 times Medical daily. Branch cyclobenzap 2020-09 Yes [id number] TAKE 1 [facility] rine 5 mg -09 TABLET BY ity o f tablet 00:00: MOUTH [place] 00 EVERY 8 Medical HOURS Branch NEEDED econazole 2020-09 Yes [id number] Apply to [facility] nitrate 1 % -09 area(s) 2 ity of cream 00:00: (two) [place] 00 times Medical daily. Branch albuterol 2020-09 Yes [id number] 2{puff} Inhale 2 [facility] (PROAIR 1-09 Puffs ity of HFA) 90 00:00: every 6 [place] mcg/actuati 00 (six) Medical on inhaler hours as Branc h needed for Wheezing or Shortness of Breath. triamcinolo 2020-09 Yes [id number] Apply to [facility] ne 0.025 % 1-09 area(s) 3 ity of ointment 00:00: (three) [place] 00 times Medical daily. For Branch itching cyanocobala 2020-09 Yes [id number] 1000ug 1 mL by [facility] min 1,000 1-09 Intramuscu ity of mcg/mL 00:00: lar route [place] injection 00 every 2 Medical (two) Branch weeks. levothyroxi 2020-09 Yes [id number] 50ug Take 1 [facility] ne 50 mcg 1-09 tablet by ity o f tablet 00:00: mouth [place] 00 every Medical morning. Branch fluticasone 2020-09 Yes [id number] 2{puff} Inhale 2 [facility] propionate 1-09 Puffs ity of (FLOVENT 00:00: every 12 [place] HFA) 110 00 (twelve) Medical mcg/actuati hours. Branch on inhaler Rinse mouth after each use. levalbutero 2020-09 Yes [id number] .63mg Inhale [facility] l 0.63 mg/3 1-09 0.63 mg 3 ity of mL 00:00: (three) [place] nebulizer 00 times Medical solution daily as Branch needed for Wheezing or Shortness of Breath. clotrimazol 2020-09 Yes [id number] Apply to [facility] e-betametha 1-09 area(s) 2 ity of sone cream 00:00: (two) [place] 00 times Medical daily. Branch cyclobenzap 2020-09 Yes [id number] TAKE 1 [facility] rine 5 mg -09 TABLET BY ity o f tablet 00:00: MOUTH [place] 00 EVERY 8 Medical HOURS Branch NEEDED econazole 2020-09 Yes [id number] Apply to [facility] nitrate 1 % -09 area(s) 2 ity of cream 00:00: (two) [place] 00 times Medical daily. Branch albuterol 2020-09 Yes [id number] 2{puff} Inhale 2 [facility] (PROAIR 1-09 Puffs ity of HFA) 90 00:00: every 6 [place] mcg/actuati 00 (six) Medical on inhaler hours as Branc h needed for Wheezing or Shortness of Breath. triamcinolo 2020-09 Yes [id number] Apply to [facility] ne 0.025 % 1-09 area(s) 3 ity of ointment 00:00: (three) [place] 00 times Medical daily. For Branch itching cyanocobala 2020-09 Yes [id number] 1000ug 1 mL by [facility] min 1,000 1-09 Intramuscu ity of mcg/mL 00:00: lar route [place] injection 00 every 2 Medical (two) Branch weeks. levothyroxi 2020-09 Yes [id number] 50ug Take 1 [facility] ne 50 mcg 1-09 tablet by ity o f tablet 00:00: mouth [place] 00 every Medical morning. Branch fluticasone 2020-09 Yes [id number] 2{puff} Inhale 2 [facility] propionate 1-09 Puffs ity of (FLOVENT 00:00: every 12 [place] HFA) 110 00 (twelve) Medical mcg/actuati hours. Branch on inhaler Rinse mouth after each use. levalbutero 2020-09 Yes [id number] .63mg Inhale [facility] l 0.63 mg/3 1-09 0.63 mg 3 ity of mL 00:00: (three) [place] nebulizer 00 times Medical solution daily as Branch needed for Wheezing or Shortness of Breath. clotrimazol 2020-09 Yes [id number] Apply to [facility] e-betametha 1-09 area(s) 2 ity of sone cream 00:00: (two) [place] 00 times Medical daily. Branch cyclobenzap 2020-09 Yes [id number] TAKE 1 [facility] rine 5 mg -09 TABLET BY ity o f tablet 00:00: MOUTH [place] 00 EVERY 8 Medical HOURS Branch NEEDED econazole 2020-09 Yes [id number] Apply to [facility] nitrate 1 % -09 area(s) 2 ity of cream 00:00: (two) [place] 00 times Medical daily. Branch albuterol 2020-09 Yes [id number] 2{puff} Inhale 2 [facility] (PROAIR 1-09 Puffs ity of HFA) 90 00:00: every 6 [place] mcg/actuati 00 (six) Medical on inhaler hours as Branc h needed for Wheezing or Shortness of Breath. triamcinolo 2020-09 Yes [id number] Apply to [facility] ne 0.025 % 1-09 area(s) 3 ity of ointment 00:00: (three) [place] 00 times Medical daily. For Branch itching cyanocobala 2020-09 Yes [id number] 1000ug 1 mL by [facility] min 1,000 1-09 Intramuscu ity of mcg/mL 00:00: lar route [place] injection 00 every 2 Medical (two) Branch weeks. levothyroxi 2020-09 Yes [id number] 50ug Take 1 [facility] ne 50 mcg 1-09 tablet by ity o f tablet 00:00: mouth [place] 00 every Medical morning. Branch fluticasone 2020-09 Yes [id number] 2{puff} Inhale 2 [facility] propionate 1-09 Puffs ity of (FLOVENT 00:00: every 12 [place] HFA) 110 00 (twelve) Medical mcg/actuati hours. Branch on inhaler Rinse mouth after each use. levalbutero 2020-09 Yes [id number] .63mg Inhale [facility] l 0.63 mg/3 1-09 0.63 mg 3 ity of mL 00:00: (three) [place] nebulizer 00 times Medical solution daily as Branch needed for Wheezing or Shortness of Breath. clotrimazol 2020-09 Yes [id number] Apply to [facility] e-betametha 1-09 area(s) 2 ity of sone cream 00:00: (two) [place] 00 times Medical daily. Branch cyclobenzap 2020-09 Yes [id number] TAKE 1 [facility] rine 5 mg 1-09 TABLET BY ity o f tablet 00:00: MOUTH [place] 00 EVERY 8 Medical HOURS Branch NEEDED econazole 2020-09 Yes [id number] Apply to [facility] nitrate 1 % 1-09 area(s) 2 ity of cream 00:00: (two) [place] 00 times Medical daily. Branch albuterol 2020-09 Yes [id number] 2{puff} Inhale 2 [facility] (PROAIR 1-09 Puffs ity of HFA) 90 00:00: every 6 [place] mcg/actuati 00 (six) Medical on inhaler hours as Branc h needed for Wheezing or Shortness of Breath. triamcinolo 2020-09 Yes [id number] Apply to [facility] ne 0.025 % 1-09 area(s) 3 ity of ointment 00:00: (three) [place] 00 times Medical daily. For Branch itching cyanocobala 2020-09 Yes [id number] 1000ug 1 mL by [facility] min 1,000 1-09 Intramuscu ity of mcg/mL 00:00: lar route [place] injection 00 every 2 Medical (two) Branch weeks. levothyroxi 2020-09 Yes [id number] 50ug Take 1 [facility] ne 50 mcg 1-09 tablet by ity o f tablet 00:00: mouth [place] 00 every Medical morning. Branch fluticasone 2020-09 Yes [id number] 2{puff} Inhale 2 [facility] propionate 1-09 Puffs ity of (FLOVENT 00:00: every 12 [place] HFA) 110 00 (twelve) Medical mcg/actuati hours. Branch on inhaler Rinse mouth after each use. levalbutero 2020-09 Yes [id number] .63mg Inhale [facility] l 0.63 mg/3 1-09 0.63 mg 3 ity of mL 00:00: (three) [place] nebulizer 00 times Medical solution daily as Branch needed for Wheezing or Shortness of Breath. clotrimazol 2020-09 Yes [id number] Apply to [facility] e-betametha 1-09 area(s) 2 ity of sone cream 00:00: (two) [place] 00 times Medical daily. Branch cyclobenzap 2020-09 Yes [id number] TAKE 1 [facility] rine 5 mg 1-09 TABLET BY ity o f tablet 00:00: MOUTH [place] 00 EVERY 8 Medical HOURS Branch NEEDED econazole 2020-09 Yes [id number] Apply to [facility] nitrate 1 % 1-09 area(s) 2 ity of cream 00:00: (two) [place] 00 times Medical daily. Branch albuterol 2020-09 Yes [id number] 2{puff} Inhale 2 [facility] (PROAIR 1-09 Puffs ity of HFA) 90 00:00: every 6 [place] mcg/actuati 00 (six) Medical on inhaler hours as Branc h needed for Wheezing or Shortness of Breath. triamcinolo 2020-09 Yes [id number] Apply to [facility] ne 0.025 % 1-09 area(s) 3 ity of ointment 00:00: (three) [place] 00 times Medical daily. For Branch itching cyanocobala 2020-09 Yes [id number] 1000ug 1 mL by [facility] min 1,000 1-09 Intramuscu ity of mcg/mL 00:00: lar route [place] injection 00 every 2 Medical (two) Branch weeks. levothyroxi 2020-09 Yes [id number] 50ug Take 1 [facility] ne 50 mcg 1-09 tablet by ity o f tablet 00:00: mouth [place] 00 every Medical morning. Branch fluticasone 2020-09 Yes [id number] 2{puff} Inhale 2 [facility] propionate 1-09 Puffs ity of (FLOVENT 00:00: every 12 [place] HFA) 110 00 (twelve) Medical mcg/actuati hours. Branch on inhaler Rinse mouth after each use. levalbutero 2020-09 Yes [id number] .63mg Inhale [facility] l 0.63 mg/3 1-09 0.63 mg 3 ity of mL 00:00: (three) [place] nebulizer 00 times Medical solution daily as Branch needed for Wheezing or Shortness of Breath. clotrimazol 2020-09 Yes [id number] Apply to [facility] e-betametha -09 area(s) 2 ity of sone cream 00:00: (two) [place] 00 times Medical daily. Branch cyclobenzap 2020-09 Yes [id number] TAKE 1 [facility] rine 5 mg -09 TABLET BY ity o f tablet 00:00: MOUTH [place] 00 EVERY 8 Medical HOURS Branch NEEDED econazole 2020-09 Yes [id number] Apply to [facility] nitrate 1 % - area(s) 2 ity of cream 00:00: (two) [place] 00 times Medical daily. Branch albuterol 2020-09 Yes [id number] 2{puff} Inhale 2 [facility] (PROAIR 1-09 Puffs ity of HFA) 90 00:00: every 6 [place] mcg/actuati 00 (six) Medical on inhaler hours as Branc h needed for Wheezing or Shortness of Breath. triamcinolo 2020-09 Yes [id number] Apply to [facility] ne 0.025 % -09 area(s) 3 ity of ointment 00:00: (three) [place] 00 times Medical daily. For Branch itching cyanocobala 2020-09 Yes [id number] 1000ug 1 mL by [facility] min 1,000 1-09 Intramuscu ity of mcg/mL 00:00: lar route [place] injection 00 every 2 Medical (two) Branch weeks. levothyroxi 2020-09 Yes [id number] 50ug Take 1 [facility] ne 50 mcg 1-09 tablet by ity o f tablet 00:00: mouth [place] 00 every Medical morning. Branch fluticasone 2020-09 Yes [id number] 2{puff} Inhale 2 [facility] propionate 1-09 Puffs ity of (FLOVENT 00:00: every 12 [place] HFA) 110 00 (twelve) Medical mcg/actuati hours. Branch on inhaler Rinse mouth after each use. levalbutero 2020-09 Yes [id number] .63mg Inhale [facility] l 0.63 mg/3 1-09 0.63 mg 3 ity of mL 00:00: (three) [place] nebulizer 00 times Medical solution daily as Branch needed for Wheezing or Shortness of Breath. clotrimazol 2020-09 Yes [id number] Apply to [facility] e-betametha -09 area(s) 2 ity of sone cream 00:00: (two) [place] 00 times Medical daily. Branch cyclobenzap 2020-09 Yes [id number] TAKE 1 [facility] rine 5 mg -09 TABLET BY ity o f tablet 00:00: MOUTH [place] 00 EVERY 8 Medical HOURS Branch NEEDED econazole 2020-09 Yes [id number] Apply to [facility] nitrate 1 % -09 area(s) 2 ity of cream 00:00: (two) [place] 00 times Medical daily. Branch albuterol 2020-09 Yes [id number] 2{puff} Inhale 2 [facility] (PROAIR 1-09 Puffs ity of HFA) 90 00:00: every 6 [place] mcg/actuati 00 (six) Medical on inhaler hours as Branc h needed for Wheezing or Shortness of Breath. triamcinolo 2020-09 Yes [id number] Apply to [facility] ne 0.025 % -09 area(s) 3 ity of ointment 00:00: (three) [place] 00 times Medical daily. For Branch itching cyanocobala 2020-09 Yes [id number] 1000ug 1 mL by [facility] min 1,000 1-09 Intramuscu ity of mcg/mL 00:00: lar route [place] injection 00 every 2 Medical (two) Branch weeks. levothyroxi 2020-09 Yes [id number] 50ug Take 1 [facility] ne 50 mcg 1-09 tablet by ity o f tablet 00:00: mouth [place] 00 every Medical morning. Branch fluticasone 2020-09 Yes [id number] 2{puff} Inhale 2 [facility] propionate 1-09 Puffs ity of (FLOVENT 00:00: every 12 [place] HFA) 110 00 (twelve) Medical mcg/actuati hours. Branch on inhaler Rinse mouth after each use. levalbutero 2020-09 Yes [id number] .63mg Inhale [facility] l 0.63 mg/3 1-09 0.63 mg 3 ity of mL 00:00: (three) [place] nebulizer 00 times Medical solution daily as Branch needed for Wheezing or Shortness of Breath. clotrimazol 2020-09 Yes [id number] Apply to [facility] e-betametha -09 area(s) 2 ity of sone cream 00:00: (two) [place] 00 times Medical daily. Branch cyclobenzap 2020-09 Yes [id number] TAKE 1 [facility] rine 5 mg -09 TABLET BY ity o f tablet 00:00: MOUTH [place] 00 EVERY 8 Medical HOURS Branch NEEDED econazole 2020-09 Yes [id number] Apply to [facility] nitrate 1 % -09 area(s) 2 ity of cream 00:00: (two) [place] 00 times Medical daily. Branch albuterol 2020-09 Yes [id number] 2{puff} Inhale 2 [facility] (PROAIR 1-09 Puffs ity of HFA) 90 00:00: every 6 [place] mcg/actuati 00 (six) Medical on inhaler hours as Branc h needed for Wheezing or Shortness of Breath. triamcinolo 2020-09 Yes [id number] Apply to [facility] ne 0.025 % -09 area(s) 3 ity of ointment 00:00: (three) [place] 00 times Medical daily. For Branch itching cyanocobala 2020-09 Yes [id number] 1000ug 1 mL by [facility] min 1,000 1-09 Intramuscu ity of mcg/mL 00:00: lar route [place] injection 00 every 2 Medical (two) Branch weeks. levothyroxi 2020-09 Yes [id number] 50ug Take 1 [facility] ne 50 mcg -09 tablet by ity o f tablet 00:00: mouth [place] 00 every Medical morning. Branch fluticasone 2020-09 Yes [id number] 2{puff} Inhale 2 [facility] propionate 1-09 Puffs ity of (FLOVENT 00:00: every 12 [place] HFA) 110 00 (twelve) Medical mcg/actuati hours. Branch on inhaler Rinse mouth after each use. levalbutero 2020-09 Yes [id number] .63mg Inhale [facility] l 0.63 mg/3 1-09 0.63 mg 3 ity of mL 00:00: (three) [place] nebulizer 00 times Medical solution daily as Branch needed for Wheezing or Shortness of Breath. clotrimazol 2020-09 Yes [id number] Apply to [facility] e-betametha -09 area(s) 2 ity of sone cream 00:00: (two) [place] 00 times Medical daily. Branch cyclobenzap 2020-09 Yes [id number] TAKE 1 [facility] rine 5 mg -09 TABLET BY ity o f tablet 00:00: MOUTH [place] 00 EVERY 8 Medical HOURS Branch NEEDED econazole 2020-09 Yes [id number] Apply to [facility] nitrate 1 % 10-04 area(s) 2 ity of cream 00:00: (two) [place] 00 times Medical daily. Branch albuterol 2020-09 Yes [id number] 2{puff} Inhale 2 [facility] (PROAIR 1-09 Puffs ity of HFA) 90 00:00: every 6 [place] mcg/actuati 00 (six) Medical on inhaler hours as Branc h needed for Wheezing or Shortness of Breath. triamcinolo 2020-09 Yes [id number] Apply to [facility] ne 0.025 % 09 area(s) 3 ity of ointment 00:00: (three) [place] 00 times Medical daily. For Branch itching cyanocobala 2020-09 Yes [id number] 1000ug 1 mL by [facility] min 1,000 1-09 Intramuscu ity of mcg/mL 00:00: lar route [place] injection 00 every 2 Medical (two) Branch weeks. levothyroxi 2020-09 Yes [id number] 50ug Take 1 [facility] ne 50 mcg 1-09 tablet by ity o f tablet 00:00: mouth [place] 00 every Medical morning. Branch fluticasone 2020-09 Yes [id number] 2{puff} Inhale 2 [facility] propionate 1-09 Puffs ity of (FLOVENT 00:00: every 12 [place] HFA) 110 00 (twelve) Medical mcg/actuati hours. Branch on inhaler Rinse mouth after each use. levalbutero 2020-09 Yes [id number] .63mg Inhale [facility] l 0.63 mg/3 1-09 0.63 mg 3 ity of mL 00:00: (three) [place] nebulizer 00 times Medical solution daily as Branch needed for Wheezing or Shortness of Breath. clotrimazol 2020-09 Yes [id number] Apply to [facility] e-betametha -09 area(s) 2 ity of sone cream 00:00: (two) [place] 00 times Medical daily. Branch cyclobenzap 2020-09 Yes [id number] TAKE 1 [facility] rine 5 mg -09 TABLET BY ity o f tablet 00:00: MOUTH [place] 00 EVERY 8 Medical HOURS Branch NEEDED econazole 2020-09 Yes [id number] Apply to [facility] nitrate 1 % 10-04 area(s) 2 ity of cream 00:00: (two) [place] 00 times Medical daily. Branch albuterol 2020-09 Yes [id number] 2{puff} Inhale 2 [facility] (PROAIR 1-09 Puffs ity of HFA) 90 00:00: every 6 [place] mcg/actuati 00 (six) Medical on inhaler hours as Branc h needed for Wheezing or Shortness of Breath. triamcinolo 2020-09 Yes [id number] Apply to [facility] ne 0.025 % -09 area(s) 3 ity of ointment 00:00: (three) [place] 00 times Medical daily. For Branch itching cyanocobala 2020-09 Yes [id number] 1000ug 1 mL by [facility] min 1,000 1-09 Intramuscu ity of mcg/mL 00:00: lar route [place] injection 00 every 2 Medical (two) Branch weeks. levothyroxi 2020-09 Yes [id number] 50ug Take 1 [facility] ne 50 mcg 1-09 tablet by ity o f tablet 00:00: mouth [place] 00 every Medical morning. Branch fluticasone 2020-09 Yes [id number] 2{puff} Inhale 2 [facility] propionate 1-09 Puffs ity of (FLOVENT 00:00: every 12 [place] HFA) 110 00 (twelve) Medical mcg/actuati hours. Branch on inhaler Rinse mouth after each use. levalbutero 2020-09 Yes [id number] .63mg Inhale [facility] l 0.63 mg/3 1-09 0.63 mg 3 ity of mL 00:00: (three) [place] nebulizer 00 times Medical solution daily as Branch needed for Wheezing or Shortness of Breath. clotrimazol 2020-09 Yes [id number] Apply to [facility] e-betametha 10-04 area(s) 2 ity of sone cream 00:00: (two) [place] 00 times Medical daily. Branch cyclobenzap 2020-09 Yes [id number] TAKE 1 [facility] rine 5 mg 09 TABLET BY ity o f tablet 00:00: MOUTH [place] 00 EVERY 8 Medical HOURS Branch NEEDED econazole 2020-09 Yes [id number] Apply to [facility] nitrate 1 % 10-04 area(s) 2 ity of cream 00:00: (two) [place] 00 times Medical daily. Branch albuterol 2020-09 Yes [id number] 2{puff} Inhale 2 [facility] (PROAIR 1-09 Puffs ity of HFA) 90 00:00: every 6 [place] mcg/actuati 00 (six) Medical on inhaler hours as Branc h needed for Wheezing or Shortness of Breath. triamcinolo 2020-09 Yes [id number] Apply to [facility] ne 0.025 % 10-04 area(s) 3 ity of ointment 00:00: (three) [place] 00 times Medical daily. For Branch itching cyanocobala 2020-09 Yes [id number] 1000ug 1 mL by [facility] min 1,000 -09 Intramuscu ity of mcg/mL 00:00: lar route [place] injection 00 every 2 Medical (two) Branch weeks. levothyroxi 2020-09 Yes [id number] 50ug Take 1 [facility] ne 50 mcg -09 tablet by ity o f tablet 00:00: mouth [place] 00 every Medical morning. Branch fluticasone 2020-09 Yes [id number] 2{puff} Inhale 2 [facility] propionate 1-09 Puffs ity of (FLOVENT 00:00: every 12 [place] HFA) 110 00 (twelve) Medical mcg/actuati hours. Branch on inhaler Rinse mouth after each use. levalbutero 2020-09 Yes [id number] .63mg Inhale [facility] l 0.63 mg/3 1-09 0.63 mg 3 ity of mL 00:00: (three) [place] nebulizer 00 times Medical solution daily as Branch needed for Wheezing or Shortness of Breath. clotrimazol 2020-09 Yes [id number] Apply to [facility] e-betametha 10-04 area(s) 2 ity of sone cream 00:00: (two) [place] 00 times Medical daily. Branch cyclobenzap 2020-09 Yes [id number] TAKE 1 [facility] rine 5 mg 10-04 TABLET BY ity o f tablet 00:00: MOUTH [place] 00 EVERY 8 Medical HOURS Branch NEEDED econazole 2020-09 Yes [id number] Apply to [facility] nitrate 1 % 10-04 area(s) 2 ity of cream 00:00: (two) [place] 00 times Medical daily. Branch albuterol 2020-09 Yes [id number] 2{puff} Inhale 2 [facility] (PROAIR 1-09 Puffs ity of HFA) 90 00:00: every 6 [place] mcg/actuati 00 (six) Medical on inhaler hours as Branc h needed for Wheezing or Shortness of Breath. triamcinolo 2020-09 Yes [id number] Apply to [facility] ne 0.025 % 10-04 area(s) 3 ity of ointment 00:00: (three) [place] 00 times Medical daily. For Branch itching cyanocobala 2020-09 Yes [id number] 1000ug 1 mL by [facility] min 1,000 -09 Intramuscu ity of mcg/mL 00:00: lar route [place] injection 00 every 2 Medical (two) Branch weeks. levothyroxi 2020-09 Yes [id number] 50ug Take 1 [facility] ne 50 mcg -09 tablet by ity o f tablet 00:00: mouth [place] 00 every Medical morning. Branch fluticasone 2020-09 Yes [id number] 2{puff} Inhale 2 [facility] propionate 1-09 Puffs ity of (FLOVENT 00:00: every 12 [place] HFA) 110 00 (twelve) Medical mcg/actuati hours. Branch on inhaler Rinse mouth after each use. levalbutero 2020-09 Yes [id number] .63mg Inhale [facility] l 0.63 mg/3 1-09 0.63 mg 3 ity of mL 00:00: (three) [place] nebulizer 00 times Medical solution daily as Branch needed for Wheezing or Shortness of Breath. clotrimazol 2020-09 Yes [id number] Apply to [facility] e-betametha -09 area(s) 2 ity of sone cream 00:00: (two) [place] 00 times Medical daily. Branch cyclobenzap 2020-09 Yes [id number] TAKE 1 [facility] rine 5 mg 1-09 TABLET BY ity o f tablet 00:00: MOUTH [place] 00 EVERY 8 Medical HOURS Branch NEEDED econazole 2020-09 Yes [id number] Apply to [facility] nitrate 1 % 09 area(s) 2 ity of cream 00:00: (two) [place] 00 times Medical daily. Branch albuterol 2020-09 Yes [id number] 2{puff} Inhale 2 [facility] (PROAIR 1-09 Puffs ity of HFA) 90 00:00: every 6 [place] mcg/actuati 00 (six) Medical on inhaler hours as Branc h needed for Wheezing or Shortness of Breath. triamcinolo 2020-09 Yes [id number] Apply to [facility] ne 0.025 % 09 area(s) 3 ity of ointment 00:00: (three) [place] 00 times Medical daily. For Branch itching cyanocobala 2020-09 Yes [id number] 1000ug 1 mL by [facility] min 1,000 1-09 Intramuscu ity of mcg/mL 00:00: lar route [place] injection 00 every 2 Medical (two) Branch weeks. levothyroxi 2020-09 Yes [id number] 50ug Take 1 [facility] ne 50 mcg 1-09 tablet by ity o f tablet 00:00: mouth [place] 00 every Medical morning. Branch fluticasone 2020-09 Yes [id number] 2{puff} Inhale 2 [facility] propionate 1-09 Puffs ity of (FLOVENT 00:00: every 12 [place] HFA) 110 00 (twelve) Medical mcg/actuati hours. Branch on inhaler Rinse mouth after each use. levalbutero 2020-09 Yes [id number] .63mg Inhale [facility] l 0.63 mg/3 1-09 0.63 mg 3 ity of mL 00:00: (three) [place] nebulizer 00 times Medical solution daily as Branch needed for Wheezing or Shortness of Breath. clotrimazol 2020-09 Yes [id number] Apply to [facility] e-betametha 10-04 area(s) 2 ity of sone cream 00:00: (two) [place] 00 times Medical daily. Branch cyclobenzap 2020-09 Yes [id number] TAKE 1 [facility] rine 5 mg 10-04 TABLET BY ity o f tablet 00:00: MOUTH [place] 00 EVERY 8 Medical HOURS Branch NEEDED econazole 2020-09 Yes [id number] Apply to [facility] nitrate 1 % 10-04 area(s) 2 ity of cream 00:00: (two) [place] 00 times Medical daily. Branch albuterol 2020-09 Yes [id number] 2{puff} Inhale 2 [facility] (PROAIR 1-09 Puffs ity of HFA) 90 00:00: every 6 [place] mcg/actuati 00 (six) Medical on inhaler hours as Branc h needed for Wheezing or Shortness of Breath. triamcinolo 2020-09 Yes [id number] Apply to [facility] ne 0.025 % 10-04 area(s) 3 ity of ointment 00:00: (three) [place] 00 times Medical daily. For Branch itching cyanocobala 2020-09 Yes [id number] 1000ug 1 mL by [facility] min 1,000 -09 Intramuscu ity of mcg/mL 00:00: lar route [place] injection 00 every 2 Medical (two) Branch weeks. fluticasone 2020-09 Yes [id number] 2{puff} Inhale 2 [facility] propionate 1-09 Puffs ity of (FLOVENT 00:00: every 12 [place] HFA) 110 00 (twelve) Medical mcg/actuati hours. Branch on inhaler Rinse mouth after each use. levalbutero 2020-09 Yes [id number] .63mg Inhale [facility] l 0.63 mg/3 09 0.63 mg 3 ity of mL 00:00: (three) [place] nebulizer 00 times Medical solution daily as Branch needed for Wheezing or Shortness of Breath. clotrimazol 2020-09 Yes [id number] Apply to [facility] e-betametha 1-09 area(s) 2 ity of sone cream 00:00: (two) [place] 00 times Medical daily. Branch cyclobenzap 2020-09 Yes [id number] TAKE 1 [facility] rine 5 mg 1-09 TABLET BY ity o f tablet 00:00: MOUTH [place] 00 EVERY 8 Medical HOURS Branch NEEDED econazole 2020-09 Yes [id number] Apply to [facility] nitrate 1 % 10-04 area(s) 2 ity of cream 00:00: (two) [place] 00 times Medical daily. Branch albuterol 2020-09 Yes [id number] 2{puff} Inhale 2 [facility] (PROAIR 1-09 Puffs ity of HFA) 90 00:00: every 6 [place] mcg/actuati 00 (six) Medical on inhaler hours as Branc h needed for Wheezing or Shortness of Breath. triamcinolo 2020-09 Yes [id number] Apply to [facility] ne 0.025 % 10-04 area(s) 3 ity of ointment 00:00: (three) [place] 00 times Medical daily. For Branch itching cyanocobala 2020-09 Yes [id number] 1000ug 1 mL by [facility] min 1,000 09 Intramuscu ity of mcg/mL 00:00: lar route [place] injection 00 every 2 Medical (two) Branch weeks. fluticasone 2020-09 Yes [id number] 2{puff} Inhale 2 [facility] propionate 1-09 Puffs ity of (FLOVENT 00:00: every 12 [place] HFA) 110 00 (twelve) Medical mcg/actuati hours. Branch on inhaler Rinse mouth after each use. levalbutero 2020-09 Yes [id number] .63mg Inhale [facility] l 0.63 mg/3 09 0.63 mg 3 ity of mL 00:00: (three) [place] nebulizer 00 times Medical solution daily as Branch needed for Wheezing or Shortness of Breath. clotrimazol 2020-09 Yes [id number] Apply to [facility] e-betametha 10-04 area(s) 2 ity of sone cream 00:00: (two) [place] 00 times Medical daily. Branch cyclobenzap 2020-09 Yes [id number] TAKE 1 [facility] rine 5 mg -09 TABLET BY ity o f tablet 00:00: MOUTH [place] 00 EVERY 8 Medical HOURS Branch NEEDED econazole 2020-09 Yes [id number] Apply to [facility] nitrate 1 % 09 area(s) 2 ity of cream 00:00: (two) [place] 00 times Medical daily. Branch albuterol 2020-09 Yes [id number] 2{puff} Inhale 2 [facility] (PROAIR 1-09 Puffs ity of HFA) 90 00:00: every 6 [place] mcg/actuati 00 (six) Medical on inhaler hours as Branc h needed for Wheezing or Shortness of Breath. triamcinolo 2020-09 Yes [id number] Apply to [facility] ne 0.025 % 10-04 area(s) 3 ity of ointment 00:00: (three) [place] 00 times Medical daily. For Branch itching cyanocobala 2020-09 Yes [id number] 1000ug 1 mL by [facility] min 1,000 1-09 Intramuscu ity of mcg/mL 00:00: lar route [place] injection 00 every 2 Medical (two) Branch weeks. levalbutero 2020-09 Yes [id number] .63mg Inhale [facility] l 0.63 mg/3 1-09 0.63 mg 3 ity of mL 00:00: (three) [place] nebulizer 00 times Medical solution daily as Branch needed for Wheezing or Shortness of Breath. cyclobenzap 2020-09 Yes [id number] TAKE 1 [facility] rine 5 mg 10-04 TABLET BY ity o f tablet 00:00: MOUTH [place] 00 EVERY 8 Medical HOURS Branch NEEDED albuterol 2020-09 Yes [id number] 2{puff} Inhale 2 [facility] (PROAIR 1-09 Puffs ity of HFA) 90 00:00: every 6 [place] mcg/actuati 00 (six) Medical on inhaler hours as Branc h needed for Wheezing or Shortness of Breath. cyanocobala 2020-09 Yes [id number] 1000ug 1 mL by [facility] min 1,000 1-09 Intramuscu ity of mcg/mL 00:00: lar route [place] injection 00 every 2 Medical (two) Branch weeks. levalbutero 2020-09 Yes [id number] .63mg Inhale [facility] l 0.63 mg/3 1-09 0.63 mg 3 ity of mL 00:00: (three) [place] nebulizer 00 times Medical solution daily as Branch needed for Wheezing or Shortness of Breath. cyclobenzap 2020-09 Yes [id number] TAKE 1 [facility] rine 5 mg 1-09 TABLET BY ity o f tablet 00:00: MOUTH [place] 00 EVERY 8 Medical HOURS Branch NEEDED albuterol 2020-09 Yes [id number] 2{puff} Inhale 2 [facility] (PROAIR 1-09 Puffs ity of HFA) 90 00:00: every 6 [place] mcg/actuati 00 (six) Medical on inhaler hours as Branc h needed for Wheezing or Shortness of Breath. cyanocobala 2020-09 Yes [id number] 1000ug 1 mL by [facility] min 1,000 1-09 Intramuscu ity of mcg/mL 00:00: lar route [place] injection 00 every 2 Medical (two) Branch weeks. levalbutero 2020-09 Yes [id number] .63mg Inhale [facility] l 0.63 mg/3 1-09 0.63 mg 3 ity of mL 00:00: (three) [place] nebulizer 00 times Medical solution daily as Branch needed for Wheezing or Shortness of Breath. cyclobenzap 2020-09 Yes [id number] TAKE 1 [facility] rine 5 mg 1-09 TABLET BY ity o f tablet 00:00: MOUTH [place] 00 EVERY 8 Medical HOURS Branch NEEDED albuterol 2020-09 Yes [id number] 2{puff} Inhale 2 [facility] (PROAIR 1-09 Puffs ity of HFA) 90 00:00: every 6 [place] mcg/actuati 00 (six) Medical on inhaler hours as Branc h needed for Wheezing or Shortness of Breath. cyanocobala 2020-09 Yes [id number] 1000ug 1 mL by [facility] min 1,000 1-09 Intramuscu ity of mcg/mL 00:00: lar route [place] injection 00 every 2 Medical (two) Branch weeks. levalbutero 2020-09 Yes [id number] .63mg Inhale [facility] l 0.63 mg/3 1-09 0.63 mg 3 ity of mL 00:00: (three) [place] nebulizer 00 times Medical solution daily as Branch needed for Wheezing or Shortness of Breath. cyclobenzap 2020-09 Yes [id number] TAKE 1 [facility] rine 5 mg 1-09 TABLET BY ity o f tablet 00:00: MOUTH [place] 00 EVERY 8 Medical HOURS Branch NEEDED albuterol 2020-09 Yes [id number] 2{puff} Inhale 2 [facility] (PROAIR 1-09 Puffs ity of HFA) 90 00:00: every 6 [place] mcg/actuati 00 (six) Medical on inhaler hours as Branc h needed for Wheezing or Shortness of Breath. cyanocobala 2020-09 Yes [id number] 1000ug 1 mL by [facility] min 1,000 1-09 Intramuscu ity of mcg/mL 00:00: lar route [place] injection 00 every 2 Medical (two) Branch weeks. levalbutero 2020-09 Yes [id number] .63mg Inhale [facility] l 0.63 mg/3 1-09 0.63 mg 3 ity of mL 00:00: (three) [place] nebulizer 00 times Medical solution daily as Branch needed for Wheezing or Shortness of Breath. cyclobenzap 2020-09 Yes [id number] TAKE 1 [facility] rine 5 mg 1-09 TABLET BY ity o f tablet 00:00: MOUTH [place] 00 EVERY 8 Medical HOURS Branch NEEDED albuterol 2020-09 Yes [id number] 2{puff} Inhale 2 [facility] (PROAIR 1-09 Puffs ity of HFA) 90 00:00: every 6 [place] mcg/actuati 00 (six) Medical on inhaler hours as Branc h needed for Wheezing or Shortness of Breath. cyanocobala 2020-09 Yes [id number] 1000ug 1 mL by [facility] min 1,000 1-09 Intramuscu ity of mcg/mL 00:00: lar route [place] injection 00 every 2 Medical (two) Branch weeks. levalbutero 2020-09 Yes [id number] .63mg Inhale [facility] l 0.63 mg/3 1-09 0.63 mg 3 ity of mL 00:00: (three) [place] nebulizer 00 times Medical solution daily as Branch needed for Wheezing or Shortness of Breath. cyclobenzap 2020-09 Yes [id number] TAKE 1 [facility] rine 5 mg 1-09 TABLET BY ity o f tablet 00:00: MOUTH [place] 00 EVERY 8 Medical HOURS Branch NEEDED albuterol 2020-09 Yes [id number] 2{puff} Inhale 2 [facility] (PROAIR 1-09 Puffs ity of HFA) 90 00:00: every 6 [place] mcg/actuati 00 (six) Medical on inhaler hours as Branc h needed for Wheezing or Shortness of Breath. cyanocobala 2020-09 Yes [id number] 1000ug 1 mL by [facility] min 1,000 1-09 Intramuscu ity of mcg/mL 00:00: lar route [place] injection 00 every 2 Medical (two) Branch weeks. levalbutero 2020-09 Yes [id number] .63mg Inhale [facility] l 0.63 mg/3 1-09 0.63 mg 3 ity of mL 00:00: (three) [place] nebulizer 00 times Medical solution daily as Branch needed for Wheezing or Shortness of Breath. cyclobenzap 2020-09 Yes [id number] TAKE 1 [facility] rine 5 mg 1-09 TABLET BY ity o f tablet 00:00: MOUTH [place] 00 EVERY 8 Medical HOURS Branch NEEDED albuterol 2020-09 Yes [id number] 2{puff} Inhale 2 [facility] (PROAIR 1-09 Puffs ity of HFA) 90 00:00: every 6 [place] mcg/actuati 00 (six) Medical on inhaler hours as Branc h needed for Wheezing or Shortness of Breath. cyanocobala 2020-09 Yes [id number] 1000ug 1 mL by [facility] min 1,000 1-09 Intramuscu ity of mcg/mL 00:00: lar route [place] injection 00 every 2 Medical (two) Branch weeks. levalbutero 2020-09 Yes [id number] .63mg Inhale [facility] l 0.63 mg/3 1-09 0.63 mg 3 ity of mL 00:00: (three) [place] nebulizer 00 times Medical solution daily as Branch needed for Wheezing or Shortness of Breath. cyclobenzap 2020-09 Yes [id number] TAKE 1 [facility] rine 5 mg 1-09 TABLET BY ity o f tablet 00:00: MOUTH [place] 00 EVERY 8 Medical HOURS Branch NEEDED albuterol 2020-09 Yes [id number] 2{puff} Inhale 2 [facility] (PROAIR 1-09 Puffs ity of HFA) 90 00:00: every 6 [place] mcg/actuati 00 (six) Medical on inhaler hours as Branc h needed for Wheezing or Shortness of Breath. cyanocobala 2020-09 Yes [id number] 1000ug 1 mL by [facility] min 1,000 1-09 Intramuscu ity of mcg/mL 00:00: lar route [place] injection 00 every 2 Medical (two) Branch weeks. levalbutero 2020-09 Yes [id number] .63mg Inhale [facility] l 0.63 mg/3 1-09 0.63 mg 3 ity of mL 00:00: (three) [place] nebulizer 00 times Medical solution daily as Branch needed for Wheezing or Shortness of Breath. cyclobenzap 2020-09 Yes [id number] TAKE 1 [facility] rine 5 mg 1-09 TABLET BY ity o f tablet 00:00: MOUTH [place] 00 EVERY 8 Medical HOURS Branch NEEDED albuterol 2020-09 Yes [id number] 2{puff} Inhale 2 [facility] (PROAIR 1-09 Puffs ity of HFA) 90 00:00: every 6 [place] mcg/actuati 00 (six) Medical on inhaler hours as Branc h needed for Wheezing or Shortness of Breath. levalbutero 2020-09 Yes [id number] .63mg Inhale [facility] l 0.63 mg/3 1-09 0.63 mg 3 ity of mL 00:00: (three) [place] nebulizer 00 times Medical solution daily as Branch needed for Wheezing or Shortness of Breath. cyclobenzap 2020-09 Yes [id number] TAKE 1 [facility] rine 5 mg 1-09 TABLET BY ity o f tablet 00:00: MOUTH [place] 00 EVERY 8 Medical HOURS Branch NEEDED albuterol 2020-09 Yes [id number] 2{puff} Inhale 2 [facility] (PROAIR 1-09 Puffs ity of HFA) 90 00:00: every 6 [place] mcg/actuati 00 (six) Medical on inhaler hours as Branc h needed for Wheezing or Shortness of Breath. levalbutero 2020-09 Yes [id number] .63mg Inhale [facility] l 0.63 mg/3 1-09 0.63 mg 3 ity of mL 00:00: (three) [place] nebulizer 00 times Medical solution daily as Branch needed for Wheezing or Shortness of Breath. cyclobenzap 2020-09 Yes [id number] TAKE 1 [facility] rine 5 mg 1-09 TABLET BY ity o f tablet 00:00: MOUTH [place] 00 EVERY 8 Medical HOURS Branch NEEDED albuterol 2020-09 Yes [id number] 2{puff} Inhale 2 [facility] (PROAIR 1-09 Puffs ity of HFA) 90 00:00: every 6 [place] mcg/actuati 00 (six) Medical on inhaler hours as Branc h needed for Wheezing or Shortness of Breath. levalbutero 2020-09 Yes [id number] .63mg Inhale [facility] l 0.63 mg/3 1-09 0.63 mg 3 ity of mL 00:00: (three) [place] nebulizer 00 times Medical solution daily as Branch needed for Wheezing or Shortness of Breath. cyclobenzap 2020-09 Yes [id number] TAKE 1 [facility] rine 5 mg 1-09 TABLET BY ity o f tablet 00:00: MOUTH [place] 00 EVERY 8 Medical HOURS Branch NEEDED albuterol 2020-09 Yes [id number] 2{puff} Inhale 2 [facility] (PROAIR 1-09 Puffs ity of HFA) 90 00:00: every 6 [place] mcg/actuati 00 (six) Medical on inhaler hours as Branc h needed for Wheezing or Shortness of Breath. levalbutero 2020-09 Yes [id number] .63mg Inhale [facility] l 0.63 mg/3 1-09 0.63 mg 3 ity of mL 00:00: (three) [place] nebulizer 00 times Medical solution daily as Branch needed for Wheezing or Shortness of Breath. cyclobenzap 2020-09 Yes [id number] TAKE 1 [facility] rine 5 mg 1-09 TABLET BY ity o f tablet 00:00: MOUTH [place] 00 EVERY 8 Medical HOURS Branch NEEDED albuterol 2020-09 Yes [id number] 2{puff} Inhale 2 [facility] (PROAIR 1-09 Puffs ity of HFA) 90 00:00: every 6 [place] mcg/actuati 00 (six) Medical on inhaler hours as Branc h needed for Wheezing or Shortness of Breath. levalbutero 2020-09 Yes [id number] .63mg Inhale [facility] l 0.63 mg/3 1-09 0.63 mg 3 ity of mL 00:00: (three) [place] nebulizer 00 times Medical solution daily as Branch needed for Wheezing or Shortness of Breath. cyclobenzap 2020-09 Yes [id number] TAKE 1 [facility] rine 5 mg 1-09 TABLET BY ity o f tablet 00:00: MOUTH [place] 00 EVERY 8 Medical HOURS Branch NEEDED albuterol 2020-09 Yes [id number] 2{puff} Inhale 2 [facility] (PROAIR 1-09 Puffs ity of HFA) 90 00:00: every 6 [place] mcg/actuati 00 (six) Medical on inhaler hours as Branc h needed for Wheezing or Shortness of Breath. levalbutero 2020-09 Yes [id number] .63mg Inhale [facility] l 0.63 mg/3 1-09 0.63 mg 3 ity of mL 00:00: (three) [place] nebulizer 00 times Medical solution daily as Branch needed for Wheezing or Shortness of Breath. cyclobenzap 2020-09 Yes [id number] TAKE 1 [facility] rine 5 mg 1-09 TABLET BY ity o f tablet 00:00: MOUTH [place] 00 EVERY 8 Medical HOURS Branch NEEDED albuterol 2020-09 Yes [id number] 2{puff} Inhale 2 [facility] (PROAIR 1-09 Puffs ity of HFA) 90 00:00: every 6 [place] mcg/actuati 00 (six) Medical on inhaler hours as Branc h needed for Wheezing or Shortness of Breath. levalbutero 2020-09 Yes [id number] .63mg Inhale [facility] l 0.63 mg/3 1-09 0.63 mg 3 ity of mL 00:00: (three) [place] nebulizer 00 times Medical solution daily as Branch needed for Wheezing or Shortness of Breath. cyclobenzap 2020-09 Yes [id number] TAKE 1 [facility] rine 5 mg 1-09 TABLET BY ity o f tablet 00:00: MOUTH [place] 00 EVERY 8 Medical HOURS Branch NEEDED albuterol 2020-09 Yes [id number] 2{puff} Inhale 2 [facility] (PROAIR 1-09 Puffs ity of HFA) 90 00:00: every 6 [place] mcg/actuati 00 (six) Medical on inhaler hours as Branc h needed for Wheezing or Shortness of Breath. levalbutero 2020-09 Yes [id number] .63mg Inhale [facility] l 0.63 mg/3 1-09 0.63 mg 3 ity of mL 00:00: (three) [place] nebulizer 00 times Medical solution daily as Branch needed for Wheezing or Shortness of Breath. cyclobenzap 2020-09 Yes [id number] TAKE 1 [facility] rine 5 mg 1-09 TABLET BY ity o f tablet 00:00: MOUTH [place] 00 EVERY 8 Medical HOURS Branch NEEDED albuterol 2020-09 Yes [id number] 2{puff} Inhale 2 [facility] (PROAIR 1-09 Puffs ity of HFA) 90 00:00: every 6 [place] mcg/actuati 00 (six) Medical on inhaler hours as Branc h needed for Wheezing or Shortness of Breath. levalbutero 2020-09 Yes [id number] .63mg Inhale [facility] l 0.63 mg/3 1-09 0.63 mg 3 ity of mL 00:00: (three) [place] nebulizer 00 times Medical solution daily as Branch needed for Wheezing or Shortness of Breath. cyclobenzap 2020-09 Yes [id number] TAKE 1 [facility] rine 5 mg 1-09 TABLET BY ity o f tablet 00:00: MOUTH [place] 00 EVERY 8 Medical HOURS Branch NEEDED albuterol 2020-09 Yes [id number] 2{puff} Inhale 2 [facility] (PROAIR 1-09 Puffs ity of HFA) 90 00:00: every 6 [place] mcg/actuati 00 (six) Medical on inhaler hours as Branc h needed for Wheezing or Shortness of Breath. levalbutero 2020-09 Yes [id number] .63mg Inhale [facility] l 0.63 mg/3 1-09 0.63 mg 3 ity of mL 00:00: (three) [place] nebulizer 00 times Medical solution daily as Branch needed for Wheezing or Shortness of Breath. cyclobenzap 2020-09 Yes [id number] TAKE 1 [facility] rine 5 mg 1-09 TABLET BY ity o f tablet 00:00: MOUTH [place] 00 EVERY 8 Medical HOURS Branch NEEDED albuterol 2020-09 Yes [id number] 2{puff} Inhale 2 [facility] (PROAIR 1-09 Puffs ity of HFA) 90 00:00: every 6 [place] mcg/actuati 00 (six) Medical on inhaler hours as Branc h needed for Wheezing or Shortness of Breath. levalbutero 2020-09 Yes [id number] .63mg Inhale [facility] l 0.63 mg/3 1-09 0.63 mg 3 ity of mL 00:00: (three) [place] nebulizer 00 times Medical solution daily as Branch needed for Wheezing or Shortness of Breath. cyclobenzap 2020-09 Yes [id number] TAKE 1 [facility] rine 5 mg 1-09 TABLET BY ity o f tablet 00:00: MOUTH [place] 00 EVERY 8 Medical HOURS Branch NEEDED albuterol 2020-09 Yes [id number] 2{puff} Inhale 2 [facility] (PROAIR 1-09 Puffs ity of HFA) 90 00:00: every 6 [place] mcg/actuati 00 (six) Medical on inhaler hours as Branc h needed for Wheezing or Shortness of Breath. levalbutero 2020-09 Yes [id number] .63mg Inhale [facility] l 0.63 mg/3 1-09 0.63 mg 3 ity of mL 00:00: (three) [place] nebulizer 00 times Medical solution daily as Branch needed for Wheezing or Shortness of Breath. cyclobenzap 2020-09 Yes [id number] TAKE 1 [facility] rine 5 mg 1-09 TABLET BY ity o f tablet 00:00: MOUTH [place] 00 EVERY 8 Medical HOURS Branch NEEDED albuterol 2020-09 Yes [id number] 2{puff} Inhale 2 [facility] (PROAIR 1-09 Puffs ity of HFA) 90 00:00: every 6 [place] mcg/actuati 00 (six) Medical on inhaler hours as Branc h needed for Wheezing or Shortness of Breath. levalbutero 2020-09 Yes [id number] .63mg Inhale [facility] l 0.63 mg/3 1-09 0.63 mg 3 ity of mL 00:00: (three) [place] nebulizer 00 times Medical solution daily as Branch needed for Wheezing or Shortness of Breath. cyclobenzap 2020-09 Yes [id number] TAKE 1 [facility] rine 5 mg 1-09 TABLET BY ity o f tablet 00:00: MOUTH [place] 00 EVERY 8 Medical HOURS Branch NEEDED albuterol 2020-09 Yes [id number] 2{puff} Inhale 2 [facility] (PROAIR 1-09 Puffs ity of HFA) 90 00:00: every 6 [place] mcg/actuati 00 (six) Medical on inhaler hours as Branc h needed for Wheezing or Shortness of Breath. levalbutero 2020-09 Yes [id number] .63mg Inhale [facility] l 0.63 mg/3 1-09 0.63 mg 3 ity of mL 00:00: (three) [place] nebulizer 00 times Medical solution daily as Branch needed for Wheezing or Shortness of Breath. cyclobenzap 2020-09 Yes [id number] TAKE 1 [facility] rine 5 mg 1-09 TABLET BY ity o f tablet 00:00: MOUTH [place] 00 EVERY 8 Medical HOURS Branch NEEDED albuterol 2020-09 Yes [id number] 2{puff} Inhale 2 [facility] (PROAIR 1-09 Puffs ity of HFA) 90 00:00: every 6 [place] mcg/actuati 00 (six) Medical on inhaler hours as Branc h needed for Wheezing or Shortness of Breath. levalbutero 2020-09 Yes [id number] .63mg Inhale [facility] l 0.63 mg/3 1-09 0.63 mg 3 ity of mL 00:00: (three) [place] nebulizer 00 times Medical solution daily as Branch needed for Wheezing or Shortness of Breath. cyclobenzap 2020-09 Yes [id number] TAKE 1 [facility] rine 5 mg 1-09 TABLET BY ity o f tablet 00:00: MOUTH [place] 00 EVERY 8 Medical HOURS Branch NEEDED albuterol 2020-09 Yes [id number] 2{puff} Inhale 2 [facility] (PROAIR 1-09 Puffs ity of HFA) 90 00:00: every 6 [place] mcg/actuati 00 (six) Medical on inhaler hours as Branc h needed for Wheezing or Shortness of Breath. levalbutero 2020-09 Yes [id number] .63mg Inhale [facility] l 0.63 mg/3 1-09 0.63 mg 3 ity of mL 00:00: (three) [place] nebulizer 00 times Medical solution daily as Branch needed for Wheezing or Shortness of Breath. cyclobenzap 2020-09 Yes [id number] TAKE 1 [facility] rine 5 mg 1-09 TABLET BY ity o f tablet 00:00: MOUTH [place] 00 EVERY 8 Medical HOURS Branch NEEDED albuterol 2020-09 Yes [id number] 2{puff} Inhale 2 [facility] (PROAIR 1-09 Puffs ity of HFA) 90 00:00: every 6 [place] mcg/actuati 00 (six) Medical on inhaler hours as Branc h needed for Wheezing or Shortness of Breath. levalbutero 2020-09 Yes [id number] .63mg Inhale [facility] l 0.63 mg/3 1-09 0.63 mg 3 ity of mL 00:00: (three) [place] nebulizer 00 times Medical solution daily as Branch needed for Wheezing or Shortness of Breath. cyclobenzap 2020-09 Yes [id number] TAKE 1 [facility] rine 5 mg 1-09 TABLET BY ity o f tablet 00:00: MOUTH [place] 00 EVERY 8 Medical HOURS Branch NEEDED albuterol 2020-09 Yes [id number] 2{puff} Inhale 2 [facility] (PROAIR 1-09 Puffs ity of HFA) 90 00:00: every 6 [place] mcg/actuati 00 (six) Medical on inhaler hours as Branc h needed for Wheezing or Shortness of Breath. levalbutero 2020-09 Yes [id number] .63mg Inhale [facility] l 0.63 mg/3 1-09 0.63 mg 3 ity of mL 00:00: (three) [place] nebulizer 00 times Medical solution daily as Branch needed for Wheezing or Shortness of Breath. cyclobenzap 2020-09 Yes [id number] TAKE 1 [facility] rine 5 mg 1-09 TABLET BY ity o f tablet 00:00: MOUTH [place] 00 EVERY 8 Medical HOURS Branch NEEDED albuterol 2020-09 Yes [id number] 2{puff} Inhale 2 [facility] (PROAIR 1-09 Puffs ity of HFA) 90 00:00: every 6 [place] mcg/actuati 00 (six) Medical on inhaler hours as Branc h needed for Wheezing or Shortness of Breath. levalbutero 2020-09 Yes [id number] .63mg Inhale [facility] l 0.63 mg/3 1-09 0.63 mg 3 ity of mL 00:00: (three) [place] nebulizer 00 times Medical solution daily as Branch needed for Wheezing or Shortness of Breath. albuterol 2020-09 Yes [id number] 2{puff} Inhale 2 [facility] (PROAIR 1-09 Puffs ity of HFA) 90 00:00: every 6 [place] mcg/actuati 00 (six) Medical on inhaler hours as Branc h needed for Wheezing or Shortness of Breath. levalbutero 2020-09 Yes [id number] .63mg Inhale [facility] l 0.63 mg/3 1-09 0.63 mg 3 ity of mL 00:00: (three) [place] nebulizer 00 times Medical solution daily as Branch needed for Wheezing or Shortness of Breath. albuterol 2020-09 Yes [id number] 2{puff} Inhale 2 [facility] (PROAIR 1-09 Puffs ity of HFA) 90 00:00: every 6 [place] mcg/actuati 00 (six) Medical on inhaler hours as Branc h needed for Wheezing or Shortness of Breath. levalbutero 2020-09 Yes [id number] .63mg Inhale [facility] l 0.63 mg/3 1-09 0.63 mg 3 ity of mL 00:00: (three) [place] nebulizer 00 times Medical solution daily as Branch needed for Wheezing or Shortness of Breath. albuterol 2020-09 Yes [id number] 2{puff} Inhale 2 [facility] (PROAIR 1-09 Puffs ity of HFA) 90 00:00: every 6 [place] mcg/actuati 00 (six) Medical on inhaler hours as Branc h needed for Wheezing or Shortness of Breath. levalbutero 2020-09 Yes [id number] .63mg Inhale [facility] l 0.63 mg/3 1-09 0.63 mg 3 ity of mL 00:00: (three) [place] nebulizer 00 times Medical solution daily as Branch needed for Wheezing or Shortness of Breath. albuterol 2020-09 Yes [id number] 2{puff} Inhale 2 [facility] (PROAIR 1-09 Puffs ity of HFA) 90 00:00: every 6 [place] mcg/actuati 00 (six) Medical on inhaler hours as Branc h needed for Wheezing or Shortness of Breath. levalbutero 2020-09 Yes [id number] .63mg Inhale [facility] l 0.63 mg/3 1-09 0.63 mg 3 ity of mL 00:00: (three) [place] nebulizer 00 times Medical solution daily as Branch needed for Wheezing or Shortness of Breath. albuterol 2020-09 Yes [id number] 2{puff} Inhale 2 [facility] (PROAIR 1-09 Puffs ity of HFA) 90 00:00: every 6 [place] mcg/actuati 00 (six) Medical on inhaler hours as Branc h needed for Wheezing or Shortness of Breath. levalbutero 2020-09 Yes [id number] .63mg Inhale [facility] l 0.63 mg/3 1-09 0.63 mg 3 ity of mL 00:00: (three) [place] nebulizer 00 times Medical solution daily as Branch needed for Wheezing or Shortness of Breath. albuterol 2020-09 Yes [id number] 2{puff} Inhale 2 [facility] (PROAIR 1-09 Puffs ity of HFA) 90 00:00: every 6 [place] mcg/actuati 00 (six) Medical on inhaler hours as Branc h needed for Wheezing or Shortness of Breath. levalbutero 2020-09 Yes [id number] .63mg Inhale [facility] l 0.63 mg/3 1-09 0.63 mg 3 ity of mL 00:00: (three) [place] nebulizer 00 times Medical solution daily as Branch needed for Wheezing or Shortness of Breath. albuterol 2020-09 Yes [id number] 2{puff} Inhale 2 [facility] (PROAIR 1-09 Puffs ity of HFA) 90 00:00: every 6 [place] mcg/actuati 00 (six) Medical on inhaler hours as Branc h needed for Wheezing or Shortness of Breath. levalbutero 2020-09 Yes [id number] .63mg Inhale [facility] l 0.63 mg/3 1-09 0.63 mg 3 ity of mL 00:00: (three) [place] nebulizer 00 times Medical solution daily as Branch needed for Wheezing or Shortness of Breath. albuterol 2020-09 Yes [id number] 2{puff} Inhale 2 [facility] (PROAIR 1-09 Puffs ity of HFA) 90 00:00: every 6 [place] mcg/actuati 00 (six) Medical on inhaler hours as Branc h needed for Wheezing or Shortness of Breath. levalbutero 2020-09 Yes [id number] .63mg Inhale [facility] l 0.63 mg/3 1-09 0.63 mg 3 ity of mL 00:00: (three) [place] nebulizer 00 times Medical solution daily as Branch needed for Wheezing or Shortness of Breath. albuterol 2020-09 Yes [id number] 2{puff} Inhale 2 [facility] (PROAIR 1-09 Puffs ity of HFA) 90 00:00: every 6 [place] mcg/actuati 00 (six) Medical on inhaler hours as Branc h needed for Wheezing or Shortness of Breath. levalbutero 2020-09 Yes [id number] .63mg Inhale [facility] l 0.63 mg/3 1-09 0.63 mg 3 ity of mL 00:00: (three) [place] nebulizer 00 times Medical solution daily as Branch needed for Wheezing or Shortness of Breath. albuterol 2020-09 Yes [id number] 2{puff} Inhale 2 [facility] (PROAIR 1-09 Puffs ity of HFA) 90 00:00: every 6 [place] mcg/actuati 00 (six) Medical on inhaler hours as Branc h needed for Wheezing or Shortness of Breath. levalbutero 2020-09 Yes [id number] .63mg Inhale [facility] l 0.63 mg/3 1-09 0.63 mg 3 ity of mL 00:00: (three) [place] nebulizer 00 times Medical solution daily as Branch needed for Wheezing or Shortness of Breath. albuterol 2020-09 Yes [id number] 2{puff} Inhale 2 [facility] (PROAIR 1-09 Puffs ity of HFA) 90 00:00: every 6 [place] mcg/actuati 00 (six) Medical on inhaler hours as Branc h needed for Wheezing or Shortness of Breath. levalbutero 2020-09 Yes [id number] .63mg Inhale [facility] l 0.63 mg/3 1-09 0.63 mg 3 ity of mL 00:00: (three) [place] nebulizer 00 times Medical solution daily as Branch needed for Wheezing or Shortness of Breath. albuterol 2020-09 Yes [id number] 2{puff} Inhale 2 [facility] (PROAIR 1-09 Puffs ity of HFA) 90 00:00: every 6 [place] mcg/actuati 00 (six) Medical on inhaler hours as Branc h needed for Wheezing or Shortness of Breath. levalbutero 2020-09 Yes [id number] .63mg Inhale [facility] l 0.63 mg/3 1-09 0.63 mg 3 ity of mL 00:00: (three) [place] nebulizer 00 times Medical solution daily as Branch needed for Wheezing or Shortness of Breath. albuterol 2020-09 Yes [id number] 2{puff} Inhale 2 [facility] (PROAIR 1-09 Puffs ity of HFA) 90 00:00: every 6 [place] mcg/actuati 00 (six) Medical on inhaler hours as Branc h needed for Wheezing or Shortness of Breath. levalbutero 2020-09 Yes [id number] .63mg Inhale [facility] l 0.63 mg/3 1-09 0.63 mg 3 ity of mL 00:00: (three) [place] nebulizer 00 times Medical solution daily as Branch needed for Wheezing or Shortness of Breath. albuterol 2020-09 Yes [id number] 2{puff} Inhale 2 [facility] (PROAIR 1-09 Puffs ity of HFA) 90 00:00: every 6 [place] mcg/actuati 00 (six) Medical on inhaler hours as Branc h needed for Wheezing or Shortness of Breath. levalbutero 2020-09 Yes [id number] .63mg Inhale [facility] l 0.63 mg/3 1-09 0.63 mg 3 ity of mL 00:00: (three) [place] nebulizer 00 times Medical solution daily as Branch needed for Wheezing or Shortness of Breath. albuterol 2020-09 Yes [id number] 2{puff} Inhale 2 [facility] (PROAIR 1-09 Puffs ity of HFA) 90 00:00: every 6 [place] mcg/actuati 00 (six) Medical on inhaler hours as Branc h needed for Wheezing or Shortness of Breath. levalbutero 2020-09 Yes [id number] .63mg Inhale [facility] l 0.63 mg/3 1-09 0.63 mg 3 ity of mL 00:00: (three) [place] nebulizer 00 times Medical solution daily as Branch needed for Wheezing or Shortness of Breath. albuterol 2020-09 Yes [id number] 2{puff} Inhale 2 [facility] (PROAIR 1-09 Puffs ity of HFA) 90 00:00: every 6 [place] mcg/actuati 00 (six) Medical on inhaler hours as Branc h needed for Wheezing or Shortness of Breath. levalbutero 2020-09 Yes [id number] .63mg Inhale [facility] l 0.63 mg/3 1-09 0.63 mg 3 ity of mL 00:00: (three) [place] nebulizer 00 times Medical solution daily as Branch needed for Wheezing or Shortness of Breath. albuterol 2020-09 Yes [id number] 2{puff} Inhale 2 [facility] (PROAIR 1-09 Puffs ity of HFA) 90 00:00: every 6 [place] mcg/actuati 00 (six) Medical on inhaler hours as Branc h needed for Wheezing or Shortness of Breath. levalbutero 2020-09 Yes [id number] .63mg Inhale [facility] l 0.63 mg/3 1-09 0.63 mg 3 ity of mL 00:00: (three) [place] nebulizer 00 times Medical solution daily as Branch needed for Wheezing or Shortness of Breath. albuterol 2020-09 Yes [id number] 2{puff} Inhale 2 [facility] (PROAIR 1-09 Puffs ity of HFA) 90 00:00: every 6 [place] mcg/actuati 00 (six) Medical on inhaler hours as Branc h needed for Wheezing or Shortness of Breath. levalbutero 2020-09 Yes [id number] .63mg Inhale [facility] l 0.63 mg/3 1-09 0.63 mg 3 ity of mL 00:00: (three) [place] nebulizer 00 times Medical solution daily as Branch needed for Wheezing or Shortness of Breath. albuterol 2020-09 Yes [id number] 2{puff} Inhale 2 [facility] (PROAIR 1-09 Puffs ity of HFA) 90 00:00: every 6 [place] mcg/actuati 00 (six) Medical on inhaler hours as Branc h needed for Wheezing or Shortness of Breath. levalbutero 2020-09 Yes [id number] .63mg Inhale [facility] l 0.63 mg/3 1-09 0.63 mg 3 ity of mL 00:00: (three) [place] nebulizer 00 times Medical solution daily as Branch needed for Wheezing or Shortness of Breath. albuterol 2020-09 Yes [id number] 2{puff} Inhale 2 [facility] (PROAIR 1-09 Puffs ity of HFA) 90 00:00: every 6 [place] mcg/actuati 00 (six) Medical on inhaler hours as Branc h needed for Wheezing or Shortness of Breath. levalbutero 2020-09 Yes [id number] .63mg Inhale [facility] l 0.63 mg/3 1-09 0.63 mg 3 ity of mL 00:00: (three) [place] nebulizer 00 times Medical solution daily as Branch needed for Wheezing or Shortness of Breath. albuterol 2020-09 Yes [id number] 2{puff} Inhale 2 [facility] (PROAIR 1-09 Puffs ity of HFA) 90 00:00: every 6 [place] mcg/actuati 00 (six) Medical on inhaler hours as Branc h needed for Wheezing or Shortness of Breath. levalbutero 2020-09 Yes [id number] .63mg Inhale [facility] l 0.63 mg/3 1-09 0.63 mg 3 ity of mL 00:00: (three) [place] nebulizer 00 times Medical solution daily as Branch needed for Wheezing or Shortness of Breath. albuterol 2020-09 Yes [id number] 2{puff} Inhale 2 [facility] (PROAIR 1-09 Puffs ity of HFA) 90 00:00: every 6 [place] mcg/actuati 00 (six) Medical on inhaler hours as Branc h needed for Wheezing or Shortness of Breath. levalbutero 2020-09 Yes [id number] .63mg Inhale [facility] l 0.63 mg/3 1-09 0.63 mg 3 ity of mL 00:00: (three) [place] nebulizer 00 times Medical solution daily as Branch needed for Wheezing or Shortness of Breath. albuterol 2020-09 Yes [id number] 2{puff} Inhale 2 [facility] (PROAIR 1-09 Puffs ity of HFA) 90 00:00: every 6 [place] mcg/actuati 00 (six) Medical on inhaler hours as Branc h needed for Wheezing or Shortness of Breath. rosuvastati 2020-09 Yes [id number] 10mg Take 1 [facility] n 10 mg 1-09 tablet by ity of tablet 00:00: mouth at [place] 00 bedtime. Medical Branch cyanocobala 2020-09 Yes [id number] 1000ug 1 mL by [facility] min 1,000 1-09 Intramuscu ity of mcg/mL 00:00: lar route [place] injection 00 every 2 Medical (two) Branch weeks. levothyroxi 2020-09 Yes [id number] 50ug Take 1 [facility] ne 50 mcg 1-09 tablet by ity o f tablet 00:00: mouth [place] 00 every Medical morning. Branch fluticasone 2020-09 Yes [id number] 2{puff} Inhale 2 [facility] propionate 1-09 Puffs ity of (FLOVENT 00:00: every 12 [place] HFA) 110 00 (twelve) Medical mcg/actuati hours. Branch on inhaler Rinse mouth after each use. levalbutero 2020-09 Yes [id number] .63mg Inhale [facility] l 0.63 mg/3 1-09 0.63 mg 3 ity of mL 00:00: (three) [place] nebulizer 00 times Medical solution daily as Branch needed for Wheezing or Shortness of Breath. losartan 50 2020-09 Yes [id number] 50mg Take 1 [facility] mg tablet 1-09 tablet by ity o f 00:00: mouth 2 [place] 00 (two) Medical times Branch daily. clotrimazol 2020-09 Yes [id number] Apply to [facility] e-betametha 1-09 area(s) 2 ity of sone cream 00:00: (two) [place] 00 times Medical daily. Branch cyclobenzap 2020-09 Yes [id number] TAKE 1 [facility] rine 5 mg 1-09 TABLET BY ity o f tablet 00:00: MOUTH [place] 00 EVERY 8 Medical HOURS Branch NEEDED econazole 2020-09 Yes [id number] Apply to [facility] nitrate 1 % 1-09 area(s) 2 ity of cream 00:00: (two) [place] 00 times Medical daily. Branch albuterol 2020-09 Yes [id number] 2{puff} Inhale 2 [facility] (PROAIR 1-09 Puffs ity of HFA) 90 00:00: every 6 [place] mcg/actuati 00 (six) Medical on inhaler hours as Branc h needed for Wheezing or Shortness of Breath. triamcinolo 2020-09 Yes [id number] Apply to [facility] ne 0.025 % 1-09 area(s) 3 ity of ointment 00:00: (three) [place] 00 times Medical daily. For Branch itching diltiazem 2020-09 Yes [id number] 120mg Take 1 [facility] (CARTIA XT) -09 capsule by it y of 120 mg 24 00:00: mouth 2 [place] hr capsule 00 (two) Medical times Branch daily. rosuvastati 2020-09 Yes [id number] 10mg Take 1 [facility] n 10 mg -09 tablet by ity of tablet 00:00: mouth at [place] 00 bedtime. Medical Branch cyanocobala 2020-09 Yes [id number] 1000ug 1 mL by [facility] min 1,000 -09 Intramuscu ity of mcg/mL 00:00: lar route [place] injection 00 every 2 Medical (two) Branch weeks. levothyroxi 2020-09 Yes [id number] 50ug Take 1 [facility] ne 50 mcg 10-04 tablet by ity o f tablet 00:00: mouth [place] 00 every Medical morning. Branch fluticasone 2020-09 Yes [id number] 2{puff} Inhale 2 [facility] propionate -09 Puffs ity of (FLOVENT 00:00: every 12 [place] HFA) 110 00 (twelve) Medical mcg/actuati hours. Branch on inhaler Rinse mouth after each use. levalbutero 2020-09 Yes [id number] .63mg Inhale [facility] l 0.63 mg/3 -09 0.63 mg 3 ity of mL 00:00: (three) [place] nebulizer 00 times Medical solution daily as Branch needed for Wheezing or Shortness of Breath. losartan 50 2020-09 Yes [id number] 50mg Take 1 [facility] mg tablet 09 tablet by ity o f 00:00: mouth 2 [place] 00 (two) Medical times Branch daily. clotrimazol 2020-09 Yes [id number] Apply to [facility] e-betametha 09 area(s) 2 ity of sone cream 00:00: (two) [place] 00 times Medical daily. Branch cyclobenzap 2020-09 Yes [id number] TAKE 1 [facility] rine 5 mg 09 TABLET BY ity o f tablet 00:00: MOUTH [place] 00 EVERY 8 Medical HOURS Branch NEEDED econazole 2020-09 Yes [id number] Apply to [facility] nitrate 1 % 10-04 area(s) 2 ity of cream 00:00: (two) [place] 00 times Medical daily. Branch albuterol 2020-09 Yes [id number] 2{puff} Inhale 2 [facility] (PROAIR 1-09 Puffs ity of HFA) 90 00:00: every 6 [place] mcg/actuati 00 (six) Medical on inhaler hours as Branc h needed for Wheezing or Shortness of Breath. triamcinolo 2020-09 Yes [id number] Apply to [facility] ne 0.025 % -09 area(s) 3 ity of ointment 00:00: (three) [place] 00 times Medical daily. For Branch itching diltiazem 2020-09 Yes [id number] 120mg Take 1 [facility] (CARTIA XT) -09 capsule by it y of 120 mg 24 00:00: mouth 2 [place] hr capsule 00 (two) Medical times Branch daily. cyanocobala 2020-09 Yes [id number] 1000ug 1 mL by [facility] min 1,000 1-09 Intramuscu ity of mcg/mL 00:00: lar route [place] injection 00 every 2 Medical (two) Branch weeks. levothyroxi 2020-09 Yes [id number] 50ug Take 1 [facility] ne 50 mcg -09 tablet by ity o f tablet 00:00: mouth [place] 00 every Medical morning. Branch fluticasone 2020-09 Yes [id number] 2{puff} Inhale 2 [facility] propionate 1-09 Puffs ity of (FLOVENT 00:00: every 12 [place] HFA) 110 00 (twelve) Medical mcg/actuati hours. Branch on inhaler Rinse mouth after each use. levalbutero 2020-09 Yes [id number] .63mg Inhale [facility] l 0.63 mg/3 1-09 0.63 mg 3 ity of mL 00:00: (three) [place] nebulizer 00 times Medical solution daily as Branch needed for Wheezing or Shortness of Breath. losartan 50 2020-09 Yes [id number] 50mg Take 1 [facility] mg tablet 1-09 tablet by ity o f 00:00: mouth 2 [place] 00 (two) Medical times Branch daily. clotrimazol 2020-09 Yes [id number] Apply to [facility] e-betametha 09 area(s) 2 ity of sone cream 00:00: (two) [place] 00 times Medical daily. Branch cyclobenzap 2020-09 Yes [id number] TAKE 1 [facility] rine 5 mg 1-09 TABLET BY ity o f tablet 00:00: MOUTH [place] 00 EVERY 8 Medical HOURS Branch NEEDED econazole 2020-09 Yes [id number] Apply to [facility] nitrate 1 % 1-09 area(s) 2 ity of cream 00:00: (two) [place] 00 times Medical daily. Branch albuterol 2020-09 Yes [id number] 2{puff} Inhale 2 [facility] (PROAIR 1-09 Puffs ity of HFA) 90 00:00: every 6 [place] mcg/actuati 00 (six) Medical on inhaler hours as Branc h needed for Wheezing or Shortness of Breath. triamcinolo 2020-09 Yes [id number] Apply to [facility] ne 0.025 % 1-09 area(s) 3 ity of ointment 00:00: (three) [place] 00 times Medical daily. For Branch itching diltiazem 2020-09 Yes [id number] 120mg Take 1 [facility] (CARTIA XT) 1-09 capsule by it y of 120 mg 24 00:00: mouth 2 [place] hr capsule 00 (two) Medical times Branch daily. cyanocobala 2020-09 Yes [id number] 1000ug 1 mL by [facility] min 1,000 1-09 Intramuscu ity of mcg/mL 00:00: lar route [place] injection 00 every 2 Medical (two) Branch weeks. levothyroxi 2020-09 Yes [id number] 50ug Take 1 [facility] ne 50 mcg 1-09 tablet by ity o f tablet 00:00: mouth [place] 00 every Medical morning. Branch fluticasone 2020-09 Yes [id number] 2{puff} Inhale 2 [facility] propionate 1-09 Puffs ity of (FLOVENT 00:00: every 12 [place] HFA) 110 00 (twelve) Medical mcg/actuati hours. Branch on inhaler Rinse mouth after each use. levalbutero 2020-09 Yes [id number] .63mg Inhale [facility] l 0.63 mg/3 1-09 0.63 mg 3 ity of mL 00:00: (three) [place] nebulizer 00 times Medical solution daily as Branch needed for Wheezing or Shortness of Breath. losartan 50 2020-09 Yes [id number] 50mg Take 1 [facility] mg tablet 1-09 tablet by ity o f 00:00: mouth 2 [place] 00 (two) Medical times Branch daily. clotrimazol 2020-09 Yes [id number] Apply to [facility] e-betametha 09 area(s) 2 ity of sone cream 00:00: (two) [place] 00 times Medical daily. Branch cyclobenzap 2020-09 Yes [id number] TAKE 1 [facility] rine 5 mg -09 TABLET BY ity o f tablet 00:00: MOUTH [place] 00 EVERY 8 Medical HOURS Branch NEEDED econazole 2020-09 Yes [id number] Apply to [facility] nitrate 1 % 10-04 area(s) 2 ity of cream 00:00: (two) [place] 00 times Medical daily. Branch albuterol 2020-09 Yes [id number] 2{puff} Inhale 2 [facility] (PROAIR 1-09 Puffs ity of HFA) 90 00:00: every 6 [place] mcg/actuati 00 (six) Medical on inhaler hours as Branc h needed for Wheezing or Shortness of Breath. triamcinolo 2020-09 Yes [id number] Apply to [facility] ne 0.025 % 10-04 area(s) 3 ity of ointment 00:00: (three) [place] 00 times Medical daily. For Branch itching diltiazem 2020-09 Yes [id number] 120mg Take 1 [facility] (CARTIA XT) 10-04 capsule by it y of 120 mg 24 00:00: mouth 2 [place] hr capsule 00 (two) Medical times Branch daily. cyanocobala 2020-09 Yes [id number] 1000ug 1 mL by [facility] min 1,000 -09 Intramuscu ity of mcg/mL 00:00: lar route [place] injection 00 every 2 Medical (two) Branch weeks. levothyroxi 2020-09 Yes [id number] 50ug Take 1 [facility] ne 50 mcg -09 tablet by ity o f tablet 00:00: mouth [place] 00 every Medical morning. Branch fluticasone 2020-09 Yes [id number] 2{puff} Inhale 2 [facility] propionate 1-09 Puffs ity of (FLOVENT 00:00: every 12 [place] HFA) 110 00 (twelve) Medical mcg/actuati hours. Branch on inhaler Rinse mouth after each use. levalbutero 2020-09 Yes [id number] .63mg Inhale [facility] l 0.63 mg/3 1-09 0.63 mg 3 ity of mL 00:00: (three) [place] nebulizer 00 times Medical solution daily as Branch needed for Wheezing or Shortness of Breath. losartan 50 2020-09 Yes [id number] 50mg Take 1 [facility] mg tablet -09 tablet by ity o f 00:00: mouth 2 [place] 00 (two) Medical times Branch daily. clotrimazol 2020-09 Yes [id number] Apply to [facility] e-betametha 09 area(s) 2 ity of sone cream 00:00: (two) [place] 00 times Medical daily. Branch cyclobenzap 2020-09 Yes [id number] TAKE 1 [facility] rine 5 mg 10-04 TABLET BY ity o f tablet 00:00: MOUTH [place] 00 EVERY 8 Medical HOURS Branch NEEDED econazole 2020-09 Yes [id number] Apply to [facility] nitrate 1 % 10-04 area(s) 2 ity of cream 00:00: (two) [place] 00 times Medical daily. Branch albuterol 2020-09 Yes [id number] 2{puff} Inhale 2 [facility] (PROAIR -09 Puffs ity of HFA) 90 00:00: every 6 [place] mcg/actuati 00 (six) Medical on inhaler hours as Branc h needed for Wheezing or Shortness of Breath. triamcinolo 2020-09 Yes [id number] Apply to [facility] ne 0.025 % 10-04 area(s) 3 ity of ointment 00:00: (three) [place] 00 times Medical daily. For Branch itching diltiazem 2020-09 Yes [id number] 120mg Take 1 [facility] n[facility] (CARTIA XT) 09 capsule by it y of 120 mg 24 00:00: mouth 2 [place] hr capsule 00 (two) Medical times Branch daily. cyanocobala 2020-09 Yes [id number] 1000ug 1 mL by [facility] min 1,000 -09 Intramuscu ity of mcg/mL 00:00: lar route [place] injection 00 every 2 Medical (two) Branch weeks. levothyroxi 2020-09 Yes [id number] 50ug Take 1 [facility] ne 50 mcg -09 tablet by ity o f tablet 00:00: mouth [place] 00 every Medical morning. Branch fluticasone 2020-09 Yes [id number] 2{puff} Inhale 2 [facility] propionate 1-09 Puffs ity of (FLOVENT 00:00: every 12 [place] HFA) 110 00 (twelve) Medical mcg/actuati hours. Branch on inhaler Rinse mouth after each use. levalbutero 2020-09 Yes [id number] .63mg Inhale [facility] l 0.63 mg/3 1-09 0.63 mg 3 ity of mL 00:00: (three) [place] nebulizer 00 times Medical solution daily as Branch needed for Wheezing or Shortness of Breath. losartan 50 2020-09 Yes [id number] 50mg Take 1 [facility] mg tablet 1-09 tablet by ity o f 00:00: mouth 2 [place] 00 (two) Medical times Branch daily. clotrimazol 2020-09 Yes [id number] Apply to [facility] e-betametha -09 area(s) 2 ity of sone cream 00:00: (two) [place] 00 times Medical daily. Branch cyclobenzap 2020-09 Yes [id number] TAKE 1 [facility] rine 5 mg -09 TABLET BY ity o f tablet 00:00: MOUTH [place] 00 EVERY 8 Medical HOURS Branch NEEDED econazole 2020-09 Yes [id number] Apply to [facility] nitrate 1 % 09 area(s) 2 ity of cream 00:00: (two) [place] 00 times Medical daily. Branch albuterol 2020-09 Yes [id number] 2{puff} Inhale 2 [facility] (PROAIR 1-09 Puffs ity of HFA) 90 00:00: every 6 [place] mcg/actuati 00 (six) Medical on inhaler hours as Branc h needed for Wheezing or Shortness of Breath. triamcinolo 2020-09 Yes [id number] Apply to [facility] ne 0.025 % -09 area(s) 3 ity of ointment 00:00: (three) [place] 00 times Medical daily. For Branch itching diltiazem 2020-09 Yes [id number] 120mg Take 1 [facility] n[facility] (CARTIA XT) -09 capsule by it y of 120 mg 24 00:00: mouth 2 [place] hr capsule 00 (two) Medical times Branch daily. cyanocobala 2020-09 Yes [id number] 1000ug 1 mL by [facility] min 1,000 1-09 Intramuscu ity of mcg/mL 00:00: lar route [place] injection 00 every 2 Medical (two) Branch weeks. levothyroxi 2020-09 Yes [id number] 50ug Take 1 [facility] ne 50 mcg 1-09 tablet by ity o f tablet 00:00: mouth [place] 00 every Medical morning. Branch fluticasone 2020-09 Yes [id number] 2{puff} Inhale 2 [facility] propionate 1-09 Puffs ity of (FLOVENT 00:00: every 12 [place] HFA) 110 00 (twelve) Medical mcg/actuati hours. Branch on inhaler Rinse mouth after each use. levalbutero 2020-09 Yes [id number] .63mg Inhale [facility] l 0.63 mg/3 1-09 0.63 mg 3 ity of mL 00:00: (three) [place] nebulizer 00 times Medical solution daily as Branch needed for Wheezing or Shortness of Breath. losartan 50 2020-09 Yes [id number] 50mg Take 1 [facility] mg tablet 1-09 tablet by ity o f 00:00: mouth 2 [place] 00 (two) Medical times Branch daily. clotrimazol 2020-09 Yes [id number] Apply to [facility] e-betametha 1-09 area(s) 2 ity of sone cream 00:00: (two) [place] 00 times Medical daily. Branch cyclobenzap 2020-09 Yes [id number] TAKE 1 [facility] rine 5 mg 1-09 TABLET BY ity o f tablet 00:00: MOUTH [place] 00 EVERY 8 Medical HOURS Branch NEEDED econazole 2020-09 Yes [id number] Apply to [facility] nitrate 1 % 1-09 area(s) 2 ity of cream 00:00: (two) [place] 00 times Medical daily. Branch albuterol 2020-09 Yes [id number] 2{puff} Inhale 2 [facility] (PROAIR 1-09 Puffs ity of HFA) 90 00:00: every 6 [place] mcg/actuati 00 (six) Medical on inhaler hours as Branc h needed for Wheezing or Shortness of Breath. triamcinolo 2020-09 Yes [id number] Apply to [facility] ne 0.025 % 1-09 area(s) 3 ity of ointment 00:00: (three) [place] 00 times Medical daily. For Branch itching diltiazem 2020-09 Yes [id number] 120mg Take 1 [facility] n[facility] (CARTIA XT) 1-09 capsule by it y of 120 mg 24 00:00: mouth 2 [place] hr capsule 00 (two) Medical times Branch daily. cyanocobala 2020-09 Yes [id number] 1000ug 1 mL by [facility] min 1,000 -09 Intramuscu ity of mcg/mL 00:00: lar route [place] injection 00 every 2 Medical (two) Branch weeks. levothyroxi 2020-09 Yes [id number] 50ug Take 1 [facility] ne 50 mcg 1-09 tablet by ity o f tablet 00:00: mouth [place] 00 every Medical morning. Branch fluticasone 2020-09 Yes [id number] 2{puff} Inhale 2 [facility] propionate 1-09 Puffs ity of (FLOVENT 00:00: every 12 [place] HFA) 110 00 (twelve) Medical mcg/actuati hours. Branch on inhaler Rinse mouth after each use. levalbutero 2020-09 Yes [id number] .63mg Inhale [facility] l 0.63 mg/3 -09 0.63 mg 3 ity of mL 00:00: (three) [place] nebulizer 00 times Medical solution daily as Branch needed for Wheezing or Shortness of Breath. losartan 50 2020-09 Yes [id number] 50mg Take 1 [facility] mg tablet -09 tablet by ity o f 00:00: mouth 2 [place] 00 (two) Medical times Branch daily. clotrimazol 2020-09 Yes [id number] Apply to [facility] e-betametha 09 area(s) 2 ity of sone cream 00:00: (two) [place] 00 times Medical daily. Branch cyclobenzap 2020-09 Yes [id number] TAKE 1 [facility] rine 5 mg 1-09 TABLET BY ity o f tablet 00:00: MOUTH [place] 00 EVERY 8 Medical HOURS Branch NEEDED econazole 2020-09 Yes [id number] Apply to [facility] nitrate 1 % -09 area(s) 2 ity of cream 00:00: (two) [place] 00 times Medical daily. Branch albuterol 2020-09 Yes [id number] 2{puff} Inhale 2 [facility] (PROAIR 1-09 Puffs ity of HFA) 90 00:00: every 6 [place] mcg/actuati 00 (six) Medical on inhaler hours as Branc h needed for Wheezing or Shortness of Breath. triamcinolo 2020-09 Yes [id number] Apply to [facility] ne 0.025 % 1-09 area(s) 3 ity of ointment 00:00: (three) [place] 00 times Medical daily. For Branch itching diltiazem 2020-09 Yes [id number] 120mg Take 1 [facility] n[facility] (CARTIA XT) 09 capsule by it y of 120 mg 24 00:00: mouth 2 [place] hr capsule 00 (two) Medical times Branch daily. cyanocobala 2020-09 Yes [id number] 1000ug 1 mL by [facility] min 1,000 1-09 Intramuscu ity of mcg/mL 00:00: lar route [place] injection 00 every 2 Medical (two) Branch weeks. levothyroxi 2020-09 Yes [id number] 50ug Take 1 [facility] ne 50 mcg -09 tablet by ity o f tablet 00:00: mouth [place] 00 every Medical morning. Branch fluticasone 2020-09 Yes [id number] 2{puff} Inhale 2 [facility] propionate 1-09 Puffs ity of (FLOVENT 00:00: every 12 [place] HFA) 110 00 (twelve) Medical mcg/actuati hours. Branch on inhaler Rinse mouth after each use. levalbutero 2020-09 Yes [id number] .63mg Inhale [facility] l 0.63 mg/3 1-09 0.63 mg 3 ity of mL 00:00: (three) [place] nebulizer 00 times Medical solution daily as Branch needed for Wheezing or Shortness of Breath. losartan 50 2020-09 Yes [id number] 50mg Take 1 [facility] mg tablet -09 tablet by ity o f 00:00: mouth 2 [place] 00 (two) Medical times Branch daily. clotrimazol 2020-09 Yes [id number] Apply to [facility] e-betametha -09 area(s) 2 ity of sone cream 00:00: (two) [place] 00 times Medical daily. Branch cyclobenzap 2020-09 Yes [id number] TAKE 1 [facility] rine 5 mg 1-09 TABLET BY ity o f tablet 00:00: MOUTH [place] 00 EVERY 8 Medical HOURS Branch NEEDED econazole 2020-09 Yes [id number] Apply to [facility] nitrate 1 % 09 area(s) 2 ity of cream 00:00: (two) [place] 00 times Medical daily. Branch albuterol 2020-09 Yes [id number] 2{puff} Inhale 2 [facility] (PROAIR 1-09 Puffs ity of HFA) 90 00:00: every 6 [place] mcg/actuati 00 (six) Medical on inhaler hours as Branc h needed for Wheezing or Shortness of Breath. triamcinolo 2020-09 Yes [id number] Apply to [facility] ne 0.025 % 09 area(s) 3 ity of ointment 00:00: (three) [place] 00 times Medical daily. For Branch itching diltiazem 2020-09 Yes [id number] 120mg Take 1 [facility] n[facility] (CARTIA XT) 10-04 capsule by it y of 120 mg 24 00:00: mouth 2 [place] hr capsule 00 (two) Medical times Branch daily. cyanocobala 2020-09 Yes [id number] 1000ug 1 mL by [facility] min 1,000 -09 Intramuscu ity of mcg/mL 00:00: lar route [place] injection 00 every 2 Medical (two) Branch weeks. levothyroxi 2020-09 Yes [id number] 50ug Take 1 [facility] ne 50 mcg 10-04 tablet by ity o f tablet 00:00: mouth [place] 00 every Medical morning. Branch fluticasone 2020-09 Yes [id number] 2{puff} Inhale 2 [facility] propionate 1-09 Puffs ity of (FLOVENT 00:00: every 12 [place] HFA) 110 00 (twelve) Medical mcg/actuati hours. Branch on inhaler Rinse mouth after each use. levalbutero 2020-09 Yes [id number] .63mg Inhale [facility] l 0.63 mg/3 1-09 0.63 mg 3 ity of mL 00:00: (three) [place] nebulizer 00 times Medical solution daily as Branch needed for Wheezing or Shortness of Breath. losartan 50 2020-09 Yes [id number] 50mg Take 1 [facility] mg tablet -09 tablet by ity o f 00:00: mouth 2 [place] 00 (two) Medical times Branch daily. clotrimazol 2020-09 Yes [id number] Apply to [facility] e-betametha 1-09 area(s) 2 ity of sone cream 00:00: (two) [place] 00 times Medical daily. Branch cyclobenzap 2020-09 Yes [id number] TAKE 1 [facility] rine 5 mg -09 TABLET BY ity o f tablet 00:00: MOUTH [place] 00 EVERY 8 Medical HOURS Branch NEEDED econazole 2020-09 Yes [id number] Apply to [facility] nitrate 1 % 10-04 area(s) 2 ity of cream 00:00: (two) [place] 00 times Medical daily. Branch albuterol 2020-09 Yes [id number] 2{puff} Inhale 2 [facility] (PROAIR 1-09 Puffs ity of HFA) 90 00:00: every 6 [place] mcg/actuati 00 (six) Medical on inhaler hours as Branc h needed for Wheezing or Shortness of Breath. triamcinolo 2020-09 Yes [id number] Apply to [facility] ne 0.025 % 10-04 area(s) 3 ity of ointment 00:00: (three) [place] 00 times Medical daily. For Branch itching diltiazem 2020-09 Yes [id number] 120mg Take 1 [facility] n[facility] (CARTIA XT) 09 capsule by it y of 120 mg 24 00:00: mouth 2 [place] hr capsule 00 (two) Medical times Branch daily. cyanocobala 2020-09 Yes [id number] 1000ug 1 mL by [facility] min 1,000 -09 Intramuscu ity of mcg/mL 00:00: lar route [place] injection 00 every 2 Medical (two) Branch weeks. levothyroxi 2020-09 Yes [id number] 50ug Take 1 [facility] ne 50 mcg 09 tablet by ity o f tablet 00:00: mouth [place] 00 every Medical morning. Branch fluticasone 2020-09 Yes [id number] 2{puff} Inhale 2 [facility] propionate 1-09 Puffs ity of (FLOVENT 00:00: every 12 [place] HFA) 110 00 (twelve) Medical mcg/actuati hours. Branch on inhaler Rinse mouth after each use. levalbutero 2020-09 Yes [id number] .63mg Inhale [facility] l 0.63 mg/3 1-09 0.63 mg 3 ity of mL 00:00: (three) [place] nebulizer 00 times Medical solution daily as Branch needed for Wheezing or Shortness of Breath. losartan 50 2020-09 Yes [id number] 50mg Take 1 [facility] mg tablet 09 tablet by ity o f 00:00: mouth 2 [place] 00 (two) Medical times Branch daily. clotrimazol 2020-09 Yes [id number] Apply to [facility] e-betametha 10-04 area(s) 2 ity of sone cream 00:00: (two) [place] 00 times Medical daily. Branch cyclobenzap 2020-09 Yes [id number] TAKE 1 [facility] rine 5 mg 10-04 TABLET BY ity o f tablet 00:00: MOUTH [place] 00 EVERY 8 Medical HOURS Branch NEEDED econazole 2020-09 Yes [id number] Apply to [facility] nitrate 1 % 10-04 area(s) 2 ity of cream 00:00: (two) [place] 00 times Medical daily. Branch albuterol 2020-09 Yes [id number] 2{puff} Inhale 2 [facility] (PROAIR 10-04 Puffs ity of HFA) 90 00:00: every 6 [place] mcg/actuati 00 (six) Medical on inhaler hours as Branc h needed for Wheezing or Shortness of Breath. triamcinolo 2020-09 Yes [id number] Apply to [facility] ne 0.025 % 10-04 area(s) 3 ity of ointment 00:00: (three) [place] 00 times Medical daily. For Branch itching diltiazem 2020-09 Yes [id number] 120mg Take 1 [facility] (CARTIA XT) 10-04 capsule by it y of 120 mg 24 00:00: mouth 2 [place] hr capsule 00 (two) Medical times Branch daily. cyclobenzap 2020-09- No [id number] TAKE 1 [facility] rine 5 mg 10-0424 TABLET BY ity of tablet 00:00: 00:00 MOUTH [place] 00 :00 EVERY 8 Medical HOURS Branch NEEDED cyclobenzap 2020-09- No [id number] TAKE 1 [facility] rine 5 mg 10-0424 TABLET BY ity of tablet 00:00: 00:00 MOUTH [place] 00 :00 EVERY 8 Medical HOURS Branch NEEDED cyclobenzap 2020-09- No [id number] TAKE 1 [facility] rine 5 mg 1-09 01-24 TABLET BY ity of tablet 00:00: 00:00 MOUTH [place] 00 :00 EVERY 8 Medical HOURS Branch NEEDED cyanocobala 2020-09- No [id number] 1000ug 1 mL by [facility] min 1,000 10-04 Intramuscu ity of mcg/mL 00:00: 00:00 lar route [place] injection 00 :00 every 2 Medical (two) Branch weeks. fluticasone 2020-09- No [id number] 2{puff} Inhale 2 [facility] propionate 10-04 Puffs ity of (FLOVENT 00:00: 00:00 every 12 [place] HFA) 110 00 :00 (twelve) Medical mcg/actuati hours. Branch on inhaler Rinse mouth after each use. clotrimazol 2020-09- No [id number] Apply to [facility] e-betametha 10-04 area(s) 2 it y of sone cream 00:00: 00:00 (two) [place] 00 :00 times Medical daily. Branch econazole 2020-09- No [id number] Apply to [facility] nitrate 1 % 10-04 area(s) 2 it y of cream 00:00: 00:00 (two) [place] 00 :00 times Medical daily. Branch triamcinolo 2020-09- No [id number] Apply to [facility] ne 0.025 % 10-04 area(s) 3 ity of ointment 00:00: 00:00 (three) [place] 00 :00 times Medical daily. For Branch itching fluticasone 2020-09- No [id number] 2{puff} Inhale 2 [facility] propionate 10-04 Puffs ity of (FLOVENT 00:00: 00:00 every 12 [place] HFA) 110 00 :00 (twelve) Medical mcg/actuati hours. Branch on inhaler Rinse mouth after each use. clotrimazol 2020-09- No [id number] Apply to [facility] e-betametha 10-04 area(s) 2 it y of sone cream 00:00: 00:00 (two) [place] 00 :00 times Medical daily. Branch econazole 2020-09- No [id number] Apply to [facility] nitrate 1 % 10-04 area(s) 2 it y of cream 00:00: 00:00 (two) [place] 00 :00 times Medical daily. Branch triamcinolo 2020-09- No [id number] Apply to [facility] ne 0.025 % 10-04 area(s) 3 ity of ointment 00:00: 00:00 (three) [place] 00 :00 times Medical daily. For Branch itching levothyroxi 2020-09- No [id number] 50ug Take 1 [facility] ne 50 mcg 10-04 tablet by ity of tablet 00:00: 00:00 mouth [place] 00 :00 every Medical morning. Branch losartan 50 2020-09- No [id number] 50mg Take 1 [facility] mg tablet 10-04 tablet by ity of 00:00: 00:00 mouth 2 [place] 00 :00 (two) Medical times Branch daily. diltiazem 2020-09- No [id number] 120mg Take 1 [facility] (CARTIA XT) 10-04 capsule by i ty of 120 mg 24 00:00: 00:00 mouth 2 [place] hr capsule 00 :00 (two) Medical times Branch daily. rosuvastati 2020-09- No [id number] 10mg Take 1 [facility] n 10 mg 10-04 tablet by ity of tablet 00:00: 00:00 mouth at [place] 00 :00 bedtime. Medical Branch rosuvastati 2020-09- No [id number] 10mg Take 1 [facility] n 10 mg [...] 2019-0 2023- No [facility] [place] 120 1-16 -24 ity of mg Tab 00:00: 00:00 [place] 00 :00 Medical Branch Ginkgo 2019-0 2023- No [facility] [place] 120 1-16 -24 ity of mg Tab 00:00: 00:00 [place] 00 :00 Medical Branch Ginkgo 2019-0 2023- No [facility] [place] 120 1-16 -24 ity of mg Tab 00:00: 00:00 [place] 00 :00 Medical Branch FERROUS 2018-0 Yes [id number] TAKE ONE [facility] vers SULFATE 325 8-13 TABLET BY ity of mg (65 mg 00:00: MOUTH [place] iron) 00 THREE Medical tablet TIMES Branch DAILY WITH MEALS FERROUS 2017-0 Yes [id number] TAKE ONE [facility] vers SULFATE 325 8-13 TABLET BY ity of mg (65 mg 00:00: MOUTH [place] iron) 00 THREE Medical tablet TIMES Branch DAILY WITH MEALS FERROUS 2018-0 Yes [id number] TAKE ONE [facility] SULFATE 325 8-13 TABLET BY ity of mg (65 mg 00:00: MOUTH [place] iron) 00 THREE Medical tablet TIMES Branch DAILY WITH MEALS FERROUS Yes [id number] TAKE ONE [facility] SULFATE 325 8-13 TABLET BY ity of mg (65 mg 00:00: MOUTH [place] iron) 00 THREE Medical tablet TIMES Branch DAILY WITH MEALS FERROUS Yes [id number] TAKE ONE [facility] SULFATE 325 8-13 TABLET BY ity of mg (65 mg 00:00: MOUTH [place] iron) 00 THREE Medical tablet TIMES Branch DAILY WITH MEALS FERROUS Yes [id number] TAKE ONE [facility] SULFATE 325 8-13 TABLET BY ity of mg (65 mg 00:00: MOUTH [place] iron) 00 THREE Medical tablet TIMES Branch DAILY WITH MEALS FERROUS Yes [id number] TAKE ONE [facility] SULFATE 325 8-13 TABLET BY ity of mg (65 mg 00:00: MOUTH [place] iron) 00 THREE Medical tablet TIMES Branch DAILY WITH MEALS FERROUS Yes [id number] TAKE ONE [facility] SULFATE 325 8-13 TABLET BY ity of mg (65 mg 00:00: MOUTH [place] iron) 00 THREE Medical tablet TIMES Branch DAILY WITH MEALS FERROUS Yes [id number] TAKE ONE [facility] SULFATE 325 8-13 TABLET BY ity of mg (65 mg 00:00: MOUTH [place] iron) 00 THREE Medical tablet TIMES Branch DAILY WITH MEALS FERROUS Yes [id number] TAKE ONE [facility] SULFATE 325 8-13 TABLET BY ity of mg (65 mg 00:00: MOUTH [place] iron) 00 THREE Medical tablet TIMES Branch DAILY WITH MEALS FERROUS Yes [id number] TAKE ONE [facility] SUL[facility]ATE 325 8-13 TABLET BY [facility] mg (65 mg 00:00: MOUTH [place] [facility]) 00 THREE [facility] tablet TIMES Branch DAILY WITH MEALS FERROUS Yes [id number] TAKE ONE [facility] SULFATE 325 8-13 TABLET BY [facility] mg (65 mg 00:00: MOUTH [place] [facility]) 00 THREE [facility] tablet TIMES Branch DAILY WITH MEALS FERROUS Yes [id number] TAKE ONE [facility] SULFATE 325 8-13 TABLET BY [facility] mg (65 mg 00:00: MOUTH [place] [facility]) 00 THREE Medical tablet TIMES Branch DAILY WITH MEALS FERROUS Yes [id number] TAKE ONE [facility] SULFATE 325 8-13 TABLET BY [facility] mg (65 mg 00:00: MOUTH [place] [facility]) 00 THREE [facility] tablet TIMES Branch DAILY WITH MEALS FERROUS Yes [id number] TAKE ONE [facility] SULFATE 325 8-13 TABLET BY [facility] mg (65 mg 00:00: MOUTH [place] [facility]) 00 THREE [facility] tablet TIMES Branch DAILY WITH MEALS FERROUS Yes [id number] TAKE ONE [facility] SULFATE 325 8-13 TABLET BY [facility] mg (65 mg 00:00: MOUTH [place] [facility]) 00 THREE [facility] tablet TIMES Branch DAILY WITH MEALS FERROUS Yes [id number] TAKE ONE [facility] SULFATE 325 8-13 TABLET BY [facility] mg (65 mg 00:00: MOUTH [place] [facility]) 00 THREE Medical tablet TIMES Branch DAILY WITH MEALS FERROUS Yes [id number] TAKE ONE [facility] SULFATE 325 8-13 TABLET BY [facility] mg (65 mg 00:00: MOUTH [place] [facility]) 00 THREE Medical tablet TIMES Branch DAILY WITH MEALS FERROUS Yes [id number] TAKE ONE [facility] SULFATE 325 8-13 TABLET BY [facility] mg (65 mg 00:00: MOUTH [place] [facility]) 00 THREE Medical tablet TIMES Branch DAILY WITH MEALS FERROUS Yes [id number] TAKE ONE [facility] SULFATE 325 8-13 TABLET BY [facility] mg (65 mg 00:00: MOUTH [place] [facility]) 00 THREE Medical tablet TIMES Branch DAILY WITH MEALS FERROUS Yes [id number] TAKE ONE [facility] SULFATE 325 8-13 TABLET BY [facility] mg (65 mg 00:00: MOUTH [place] [facility]) 00 THREE Medical tablet TIMES Branch DAILY WITH MEALS FERROUS Yes [id number] TAKE ONE [facility] SULFATE 325 8-13 TABLET BY [facility] mg (65 mg 00:00: MOUTH [place] [facility]) 00 THREE Medical tablet TIMES Branch DAILY WITH MEALS FERROUS Yes [id number] TAKE ONE [facility] SULFATE 325 8-13 TABLET BY [facility] mg (65 mg 00:00: MOUTH [place] [facility]) 00 THREE Medical tablet TIMES Branch DAILY WITH MEALS FERROUS Yes [id number] TAKE ONE [facility] SULFATE 325 8-13 TABLET BY [facility] mg (65 mg 00:00: MOUTH [place] [facility]) 00 THREE Medical tablet TIMES Branch DAILY WITH MEALS FERROUS Yes [id number] TAKE ONE [facility] SULFATE 325 8-13 TABLET BY [facility] mg (65 mg 00:00: MOUTH [place] [facility]) 00 THREE Medical tablet TIMES Branch DAILY WITH MEALS FERROUS Yes [id number] TAKE ONE [facility] SULFATE 325 8-13 TABLET BY [facility] mg (65 mg 00:00: MOUTH [place] [facility]) 00 THREE Medical tablet TIMES Branch DAILY WITH MEALS FERROUS Yes [id number] TAKE ONE [facility] SULFATE 325 8-13 TABLET BY [facility] mg (65 mg 00:00: MOUTH [place] [facility]) 00 THREE Medical tablet TIMES Branch DAILY WITH MEALS FERROUS Yes [id number] TAKE ONE [facility] SULFATE 325 8-13 TABLET BY [facility] mg (65 mg 00:00: MOUTH [place] [facility]) 00 THREE Medical tablet TIMES Branch DAILY WITH MEALS FERROUS Yes [id number] TAKE ONE [facility] SULFATE 325 8-13 TABLET BY [facility] mg (65 mg 00:00: MOUTH [place] [facility]) 00 THREE Medical tablet TIMES Branch DAILY WITH MEALS FERROUS Yes [id number] TAKE ONE [facility] SULFATE 325 8-13 TABLET BY [facility] mg (65 mg 00:00: MOUTH [place] [facility]) 00 THREE Medical tablet TIMES Branch DAILY WITH MEALS FERROUS Yes [id number] TAKE ONE [facility] SULFATE 325 8-13 TABLET BY [facility] mg (65 mg 00:00: MOUTH [place] [facility]) 00 THREE Medical tablet TIMES Branch DAILY WITH MEALS FERROUS Yes [id number] TAKE ONE [facility] SULFATE 325 8-13 TABLET BY [facility] mg (65 mg 00:00: MOUTH [place] [facility]) 00 THREE Medical tablet TIMES Branch DAILY WITH MEALS FERROUS Yes [id number] TAKE ONE [facility] SULFATE 325 8-13 TABLET BY [facility] mg (65 mg 00:00: MOUTH [place] [facility]) 00 THREE Medical tablet TIMES Branch DAILY WITH MEALS FERROUS Yes [id number] TAKE ONE [facility] SULFATE 325 8-13 TABLET BY [facility] mg (65 mg 00:00: MOUTH [place] [facility]) 00 THREE Medical tablet TIMES Branch DAILY WITH MEALS FERROUS Yes [id number] TAKE ONE [facility] SULFATE 325 8-13 TABLET BY [facility] mg (65 mg 00:00: MOUTH [place] [facility]) 00 THREE Medical tablet TIMES Branch DAILY WITH MEALS FERROUS Yes [id number] TAKE ONE [facility] SULFATE 325 8-13 TABLET BY [facility] mg (65 mg 00:00: MOUTH [place] [facility]) 00 THREE Medical tablet TIMES Branch DAILY WITH MEALS FERROUS Yes [id number] TAKE ONE [facility] SULFATE 325 8-13 TABLET BY [facility] mg (65 mg 00:00: MOUTH [place] [facility]) 00 THREE [facility] tablet TIMES Branch DAILY WITH MEALS FERROUS Yes [id number] TAKE ONE [facility] SULFATE 325 8-13 TABLET BY [facility] mg (65 mg 00:00: MOUTH [place] [facility]) 00 THREE Medical tablet TIMES Branch DAILY WITH MEALS FERROUS Yes [id number] TAKE ONE [facility] SULFATE 325 8-13 TABLET BY [facility] mg (65 mg 00:00: MOUTH [place] [facility]) 00 THREE Medical tablet TIMES Branch DAILY WITH MEALS FERROUS Yes [id number] TAKE ONE [facility] SULFATE 325 8-13 TABLET BY [facility] mg (65 mg 00:00: MOUTH [place] [facility]) 00 THREE Medical tablet TIMES Branch DAILY WITH MEALS FERROUS Yes [id number] TAKE ONE [facility] SULFATE 325 8-13 TABLET BY [facility] mg (65 mg 00:00: MOUTH [place] [facility]) 00 THREE Medical tablet TIMES Branch DAILY WITH MEALS FERROUS Yes [id number] TAKE ONE [facility] SULFATE 325 8-13 TABLET BY [facility] mg (65 mg 00:00: MOUTH [place] [facility]) 00 THREE Medical tablet TIMES Branch DAILY WITH MEALS FERROUS Yes [id number] TAKE ONE [facility] SULFATE 325 8-13 TABLET BY [facility] mg (65 mg 00:00: MOUTH [place] [facility]) 00 THREE Medical tablet TIMES Branch DAILY WITH MEALS FERROUS Yes [id number] TAKE ONE [facility] SULFATE 325 8-13 TABLET BY [facility] mg (65 mg 00:00: MOUTH [place] [facility]) 00 THREE [facility] tablet TIMES Branch DAILY WITH MEALS FERROUS Yes [id number] TAKE ONE [facility] SULFATE 325 8-13 TABLET BY [facility] mg (65 mg 00:00: MOUTH [place] [facility]) 00 THREE Medical tablet TIMES Branch DAILY WITH MEALS FERROUS Yes [id number] TAKE ONE [facility] SULFATE 325 8-13 TABLET BY [facility] mg (65 mg 00:00: MOUTH [place] [facility]) 00 THREE Medical tablet TIMES Branch DAILY WITH MEALS FERROUS Yes [id number] TAKE ONE [facility] SULFATE 325 8-13 TABLET BY [facility] mg (65 mg 00:00: MOUTH [place] [facility]) 00 THREE Medical tablet TIMES Branch DAILY WITH MEALS FERROUS Yes [id number] TAKE ONE [facility] SULFATE 325 8-13 TABLET BY [facility] mg (65 mg 00:00: MOUTH [place] [facility]) 00 THREE Medical tablet TIMES Branch DAILY WITH MEALS FERROUS Yes [id number] TAKE ONE [facility] SULFATE 325 8-13 TABLET BY [facility] mg (65 mg 00:00: MOUTH [place] [facility]) 00 THREE Medical tablet TIMES Branch DAILY WITH MEALS FERROUS Yes [id number] TAKE ONE [facility] SULFATE 325 8-13 TABLET BY [facility] mg (65 mg 00:00: MOUTH [place] [facility]) 00 THREE Medical tablet TIMES Branch DAILY WITH MEALS FERROUS Yes [id number] TAKE ONE [facility] SULFATE 325 8-13 TABLET BY [facility] mg (65 mg 00:00: MOUTH [place] [facility]) 00 THREE Medical tablet TIMES Branch DAILY WITH MEALS FERROUS Yes [id number] TAKE ONE [facility] SULFATE 325 8-13 TABLET BY [facility] mg (65 mg 00:00: MOUTH [place] [facility]) 00 THREE Medical tablet TIMES Branch DAILY WITH MEALS FERROUS Yes [id number] TAKE ONE [facility] SULFATE 325 8-13 TABLET BY [facility] mg (65 mg 00:00: MOUTH [place] [facility]) 00 THREE Medical tablet TIMES Branch DAILY WITH MEALS FERROUS Yes [id number] TAKE ONE [facility] SULFATE 325 8-13 TABLET BY [facility] mg (65 mg 00:00: MOUTH [place] [facility]) 00 THREE Medical tablet TIMES Branch DAILY WITH MEALS FERROUS Yes [id number] TAKE ONE [facility] SULFATE 325 8-13 TABLET BY [facility] mg (65 mg 00:00: MOUTH [place] [facility]) 00 THREE Medical tablet TIMES Branch DAILY WITH MEALS FERROUS Yes [id number] TAKE ONE [facility] SULFATE 325 8-13 TABLET BY [facility] mg (65 mg 00:00: MOUTH [place] [facility]) 00 THREE Medical tablet TIMES Branch DAILY WITH MEALS FERROUS Yes [id number] TAKE ONE [facility] SULFATE 325 8-13 TABLET BY [facility] mg (65 mg 00:00: MOUTH [place] [facility]) 00 THREE Medical tablet TIMES Branch DAILY WITH MEALS FERROUS Yes [id number] TAKE ONE [facility] SULFATE 325 8-13 TABLET BY [facility] mg (65 mg 00:00: MOUTH [place] [facility]) 00 THREE Medical tablet TIMES Branch DAILY WITH MEALS FERROUS Yes [id number] TAKE ONE [facility] SULFATE 325 8-13 TABLET BY [facility] mg (65 mg 00:00: MOUTH [place] [facility]) 00 THREE Medical tablet TIMES Branch DAILY WITH MEALS FERROUS Yes [id number] TAKE ONE [facility] SULFATE 325 8-13 TABLET BY [facility] mg (65 mg 00:00: MOUTH [place] [facility]) 00 THREE [facility] tablet TIMES Branch DAILY WITH MEALS FERROUS Yes [id number] TAKE ONE [facility] SULFATE 325 8-13 TABLET BY [facility] mg (65 mg 00:00: MOUTH [place] [facility]) 00 THREE Medical tablet TIMES Branch DAILY WITH MEALS FERROUS Yes [id number] TAKE ONE [facility] SULFATE 325 8-13 TABLET BY [facility] mg (65 mg 00:00: MOUTH [place] [facility]) 00 THREE Medical tablet TIMES Branch DAILY WITH MEALS FERROUS Yes [id number] TAKE ONE [facility] SULFATE 325 8-13 TABLET BY [facility] mg (65 mg 00:00: MOUTH [place] [facility]) 00 THREE Medical tablet TIMES Branch DAILY WITH MEALS FERROUS Yes [id number] TAKE ONE [facility] SULFATE 325 8-13 TABLET BY [facility] mg (65 mg 00:00: MOUTH [place] [facility]) 00 THREE Medical tablet TIMES Branch DAILY WITH MEALS FERROUS Yes [id number] TAKE ONE [facility] SULFATE 325 8-13 TABLET BY [facility] mg (65 mg 00:00: MOUTH [place] [facility]) 00 THREE Medical tablet TIMES Branch DAILY WITH MEALS FERROUS Yes [id number] TAKE ONE [facility] SULFATE 325 8-13 TABLET BY [facility] mg (65 mg 00:00: MOUTH [place] [facility]) 00 THREE Medical tablet TIMES Branch DAILY WITH MEALS FERROUS Yes [id number] TAKE ONE [facility] SULFATE 325 8-13 TABLET BY [facility] mg (65 mg 00:00: MOUTH [place] [facility]) 00 THREE Medical tablet TIMES Branch DAILY WITH MEALS FERROUS Yes [id number] TAKE ONE [facility] SULFATE 325 8-13 TABLET BY [facility] mg (65 mg 00:00: MOUTH [place] [facility]) 00 THREE Medical tablet TIMES Branch DAILY WITH MEALS FERROUS Yes [id number] TAKE ONE [facility] SULFATE 325 8-13 TABLET BY [facility] mg (65 mg 00:00: MOUTH [place] [facility]) 00 THREE Medical tablet TIMES Branch DAILY WITH MEALS FERROUS Yes [id number] TAKE ONE [facility] SULFATE 325 8-13 TABLET BY [facility] of mg (65 mg 00:00: MOUTH [place] [facility]) 00 THREE Medical tablet TIMES Branch DAILY WITH MEALS FERROUS Yes [id number] TAKE ONE [facility] SULFATE 325 8-13 TABLET BY [facility] of mg (65 mg 00:00: MOUTH [place] [facility]) 00 THREE Medical tablet TIMES Branch DAILY WITH MEALS FERROUS Yes [id number] TAKE ONE [facility] SULFATE 325 8-13 TABLET BY [facility] of mg (65 mg 00:00: MOUTH [place] [facility]) 00 THREE Medical tablet TIMES Branch DAILY WITH MEALS FERROUS Yes [id number] TAKE ONE [facility] SULFATE 325 8-13 TABLET BY [facility] of mg (65 mg 00:00: MOUTH [place] [facility]) 00 THREE Medical tablet TIMES Branch DAILY WITH MEALS FERROUS Yes [id number] TAKE ONE [facility] SULFATE 325 8-13 TABLET BY [facility] of mg (65 mg 00:00: MOUTH [place] [facility]) 00 THREE Medical tablet TIMES Branch DAILY WITH MEALS FERROUS Yes [id number] TAKE ONE [facility] SULFATE 325 8-13 TABLET BY [facility] of mg (65 mg 00:00: MOUTH [place] [facility]) 00 THREE Medical tablet TIMES Branch DAILY WITH MEALS FERROUS Yes [id number] TAKE ONE [facility] SULFATE 325 8-13 TABLET BY [facility] of mg (65 mg 00:00: MOUTH [place] [facility]) 00 THREE Medical tablet TIMES Branch DAILY WITH MEALS FERROUS Yes [id number] TAKE ONE [facility] SULFATE 325 8-13 TABLET BY [facility] of mg (65 mg 00:00: MOUTH [place] [facility]) 00 THREE Medical tablet TIMES Branch DAILY WITH MEALS FERROUS 2022- No [id number] TAKE ONE [facility] SULFATE 325 8-13 01-24 TABLET BY it y of mg (65 mg 00:00: 00:00 MOUTH [place] [facility]) 00 :00 THREE Medical tablet TIMES Branch DAILY WITH MEALS FERROUS 2022- No [id number] TAKE ONE [facility] SULFATE 325 8-13 01-24 TABLET BY it y of mg (65 mg 00:00: 00:00 MOUTH [place] [facility]) 00 :00 THREE Medical tablet TIMES Branch DAILY WITH MEALS FERROUS 2022- No [id number] TAKE ONE [facility] SULFATE 325 8-13 01-24 TABLET BY it y of mg (65 mg 00:00: 00:00 MOUTH [place] [facility]) 00 :00 THREE Medical tablet TIMES Branch DAILY WITH MEALS coQ10, Yes [id number] 1{capsu Take 1 U nivers ubiquinol, 1-16 le} capsule by ity of 100 mg Cap 00:00: mouth [place] 00 daily. [facility] coQ10, Yes [id number] 1{capsu Take 1 U nivers ubiquinol, 1-16 le} capsule by ity of 100 mg Cap 00:00: mouth [place] 00 daily. [facility] coQ10, Yes [id number] 1{capsu Take 1 U nivers ubiquinol, 1-16 le} capsule by ity of 100 mg Cap 00:00: mouth [place] 00 daily. [facility] coQ10, Yes [id number] 1{capsu Take 1 U nivers ubiquinol, 1-16 le} capsule by ity of 100 mg Cap 00:00: mouth [place] 00 daily. [facility] coQ10, Yes [id number] 1{capsu Take 1 U nivers ubiquinol, 1-16 le} capsule by ity of 100 mg Cap 00:00: mouth [place] 00 daily. [facility] coQ10, Yes [id number] 1{capsu Take 1 U nivers ubiquinol, 1-16 le} capsule by ity of 100 mg Cap 00:00: mouth [place] 00 daily. [facility] coQ10, Yes [id number] 1{capsu Take 1 U nivers ubiquinol, 1-16 le} capsule by ity of 100 mg Cap 00:00: mouth [place] 00 daily. [facility] coQ10, Yes [id number] 1{capsu Take 1 U nivers ubiquinol, 1-16 le} capsule by ity of 100 mg Cap 00:00: mouth [place] 00 daily. [facility] coQ10, Yes [id number] 1{capsu Take 1 U nivers ubiquinol, 1-16 le} capsule by ity of 100 mg Cap 00:00: mouth [place] 00 daily. [facility] coQ10, Yes [id number] 1{capsu Take 1 U nivers ubiquinol, 1-16 le} capsule by ity of 100 mg Cap 00:00: mouth [place] 00 daily. [facility] coQ10, Yes [id number] 1{capsu Take 1 U nivers ubiquinol, 1-16 le} capsule by ity of 100 mg Cap 00:00: mouth [place] 00 daily. [facility] coQ10, Yes [id number] 1{capsu Take 1 U nivers ubiquinol, 1-16 le} capsule by ity of 100 mg Cap 00:00: mouth [place] 00 daily. [facility] coQ10, Yes [id number] 1{capsu Take 1 U nivers ubiquinol, 1-16 le} capsule by ity of 100 mg Cap 00:00: mouth [place] 00 daily. [facility] coQ10, Yes [id number] 1{capsu Take 1 U nivers ubiquinol, 1-16 le} capsule by ity of 100 mg Cap 00:00: mouth [place] 00 daily. [facility] coQ10, Yes [id number] 1{capsu Take 1 U nivers ubiquinol, 1-16 le} capsule by ity of 100 mg Cap 00:00: mouth [place] 00 daily. [facility] coQ10, Yes [id number] 1{capsu Take 1 U nivers ubiquinol, 1-16 le} capsule by ity of 100 mg Cap 00:00: mouth [place] 00 daily. [facility] coQ10, Yes [id number] 1{capsu Take 1 U nivers ubiquinol, 1-16 le} capsule by ity of 100 mg Cap 00:00: mouth [place] 00 daily. [facility] coQ10, Yes [id number] 1{capsu Take 1 U nivers ubiquinol, 1-16 le} capsule by ity of 100 mg Cap 00:00: mouth [place] 00 daily. [facility] coQ10, Yes [id number] 1{capsu Take 1 U nivers ubiquinol, 1-16 le} capsule by ity of 100 mg Cap 00:00: mouth [place] 00 daily. [facility] coQ10, Yes [id number] 1{capsu Take 1 U nivers ubiquinol, 1-16 le} capsule by ity of 100 mg Cap 00:00: mouth [place] 00 daily. [facility] coQ10, Yes [id number] 1{capsu Take 1 U nivers ubiquinol, 1-16 le} capsule by ity of 100 mg Cap 00:00: mouth [place] 00 daily. [facility] coQ10, Yes [id number] 1{capsu Take 1 U nivers ubiquinol, 1-16 le} capsule by ity of 100 mg Cap 00:00: mouth [place] 00 daily. [facility] coQ10, Yes [id number] 1{capsu Take 1 U nivers ubiquinol, 1-16 le} capsule by ity of 100 mg Cap 00:00: mouth [place] 00 daily. [facility] coQ10, Yes [id number] 1{capsu Take 1 U nivers ubiquinol, 1-16 le} capsule by ity of 100 mg Cap 00:00: mouth [place] 00 daily. [facility] coQ10, Yes [id number] 1{capsu Take 1 U nivers ubiquinol, 1-16 le} capsule by ity of 100 mg Cap 00:00: mouth [place] 00 daily. [facility] coQ10, Yes [id number] 1{capsu Take 1 U nivers ubiquinol, 1-16 le} capsule by ity of 100 mg Cap 00:00: mouth [place] 00 daily. [facility] coQ10, Yes [id number] 1{capsu Take 1 U nivers ubiquinol, 1-16 le} capsule by ity of 100 mg Cap 00:00: mouth [place] 00 daily. [facility] coQ10, Yes [id number] 1{capsu Take 1 U nivers ubiquinol, 1-16 le} capsule by ity of 100 mg Cap 00:00: mouth [place] 00 daily. [facility] coQ10, Yes [id number] 1{capsu Take 1 U nivers ubiquinol, 1-16 le} capsule by ity of 100 mg Cap 00:00: mouth [place] 00 daily. [facility] coQ10, Yes [id number] 1{capsu Take 1 U nivers ubiquinol, 1-16 le} capsule by ity of 100 mg Cap 00:00: mouth [place] 00 daily. [facility] coQ10, Yes [id number] 1{capsu Take 1 U nivers ubiquinol, 1-16 le} capsule by ity of 100 mg Cap 00:00: mouth [place] 00 daily. [facility] coQ10, Yes [id number] 1{capsu Take 1 U nivers ubiquinol, 1-16 le} capsule by ity of 100 mg Cap 00:00: mouth [place] 00 daily. [facility] coQ10, Yes [id number] 1{capsu Take 1 U nivers ubiquinol, 1-16 le} capsule by ity of 100 mg Cap 00:00: mouth [place] 00 daily. [facility] coQ10, Yes [id number] 1{capsu Take 1 U nivers ubiquinol, 1-16 le} capsule by ity of 100 mg Cap 00:00: mouth [place] 00 daily. [facility] coQ10, Yes [id number] 1{capsu Take 1 U nivers ubiquinol, 1-16 le} capsule by ity of 100 mg Cap 00:00: mouth [place] 00 daily. [facility] coQ10, Yes [id number] 1{capsu Take 1 U nivers ubiquinol, 1-16 le} capsule by ity of 100 mg Cap 00:00: mouth [place] 00 daily. [facility] coQ10, Yes [id number] 1{capsu Take 1 U nivers ubiquinol, 1-16 le} capsule by ity of 100 mg Cap 00:00: mouth [place] 00 daily. [facility] coQ10, Yes [id number] 1{capsu Take 1 U nivers ubiquinol, 1-16 le} capsule by ity of 100 mg Cap 00:00: mouth [place] 00 daily. [facility] coQ10, Yes [id number] 1{capsu Take 1 U nivers ubiquinol, 1-16 le} capsule by ity of 100 mg Cap 00:00: mouth [place] 00 daily. [facility] coQ10, Yes [id number] 1{capsu Take 1 U nivers ubiquinol, 1-16 le} capsule by ity of 100 mg Cap 00:00: mouth [place] 00 daily. [facility] coQ10, Yes [id number] 1{capsu Take 1 U nivers ubiquinol, 1-16 le} capsule by ity of 100 mg Cap 00:00: mouth [place] 00 daily. [facility] coQ10, Yes [id number] 1{capsu Take 1 U nivers ubiquinol, 1-16 le} capsule by ity of 100 mg Cap 00:00: mouth [place] 00 daily. [facility] Branch coQ10, Yes [id number] 1{capsu Take 1 U nivers ubiquinol, 1-16 le} capsule by ity of 100 mg Cap 00:00: mouth [place] 00 daily. [facility] Branch coQ10, Yes [id number] 1{capsu Take 1 U nivers ubiquinol, 1-16 le} capsule by ity of 100 mg Cap 00:00: mouth [place] 00 daily. [facility] Branch coQ10, Yes [id number] 1{capsu Take 1 U nivers ubiquinol, 1-16 le} capsule by ity of 100 mg Cap 00:00: mouth [place] 00 daily. [facility] Branch coQ10, Yes [id number] 1{capsu Take 1 U nivers ubiquinol, 1-16 le} capsule by ity of 100 mg Cap 00:00: mouth [place] 00 daily. [facility] Branch coQ10, Yes [id number] 1{capsu Take 1 U nivers ubiquinol, 1-16 le} capsule by ity of 100 mg Cap 00:00: mouth [place] 00 daily. Medical Branch coQ10, Yes [id number] 1{capsu Take 1 U nivers ubiquinol, 1-16 le} capsule by ity of 100 mg Cap 00:00: mouth [place] 00 daily. [facility] Branch coQ10, Yes [id number] 1{capsu Take 1 U nivers ubiquinol, 1-16 le} capsule by ity of 100 mg Cap 00:00: mouth [place] 00 daily. Medical Branch coQ10, Yes [id number] 1{capsu Take 1 U nivers ubiquinol, 1-16 le} capsule by ity of 100 mg Cap 00:00: mouth [place] 00 daily. [facility] Branch coQ10, Yes [id number] 1{capsu Take 1 U nivers ubiquinol, 1-16 le} capsule by ity of 100 mg Cap 00:00: mouth [place] 00 daily. [facility] Branch coQ10, Yes [id number] 1{capsu Take 1 U nivers ubiquinol, 1-16 le} capsule by ity of 100 mg Cap 00:00: mouth [place] 00 daily. [facility] Branch coQ10, Yes [id number] 1{capsu Take 1 U nivers ubiquinol, 1-16 le} capsule by ity of 100 mg Cap 00:00: mouth [place] 00 daily. [facility] Branch coQ10, Yes [id number] 1{capsu Take 1 U nivers ubiquinol, 1-16 le} capsule by ity of 100 mg Cap 00:00: mouth [place] 00 daily. [facility] coQ10, Yes [id number] 1{capsu Take 1 U nivers ubiquinol, 1-16 le} capsule by ity of 100 mg Cap 00:00: mouth [place] 00 daily. [facility] Branch coQ10, Yes [id number] 1{capsu Take 1 U nivers ubiquinol, 1-16 le} capsule by ity of 100 mg Cap 00:00: mouth [place] 00 daily. [facility] Branch coQ10, Yes [id number] 1{capsu Take 1 U nivers ubiquinol, 1-16 le} capsule by ity of 100 mg Cap 00:00: mouth [place] 00 daily. [facility] Branch coQ10, Yes [id number] 1{capsu Take 1 U nivers ubiquinol, 1-16 le} capsule by ity of 100 mg Cap 00:00: mouth [place] 00 daily. [facility] Branch coQ10, Yes [id number] 1{capsu Take 1 U nivers ubiquinol, 1-16 le} capsule by ity of 100 mg Cap 00:00: mouth [place] 00 daily. [facility] Branch coQ10, Yes [id number] 1{capsu Take 1 U nivers ubiquinol, 1-16 le} capsule by ity of 100 mg Cap 00:00: mouth [place] 00 daily. [facility] Branch coQ10, Yes [id number] 1{capsu Take 1 U nivers ubiquinol, 1-16 le} capsule by ity of 100 mg Cap 00:00: mouth [place] 00 daily. Medical Branch coQ10, Yes [id number] 1{capsu Take 1 U nivers ubiquinol, 1-16 le} capsule by ity of 100 mg Cap 00:00: mouth [place] 00 daily. Medical Branch coQ10, Yes [id number] 1{capsu Take 1 U nivers ubiquinol, 1-16 le} capsule by ity of 100 mg Cap 00:00: mouth [place] 00 daily. Medical Branch coQ10, Yes [id number] 1{capsu Take 1 U nivers ubiquinol, 1-16 le} capsule by ity of 100 mg Cap 00:00: mouth [place] 00 daily. Medical Branch coQ10, Yes [id number] 1{capsu Take 1 U nivers ubiquinol, 1-16 le} capsule by ity of 100 mg Cap 00:00: mouth [place] 00 daily. Medical Branch coQ10, Yes [id number] 1{capsu Take 1 U nivers ubiquinol, 1-16 le} capsule by ity of 100 mg Cap 00:00: mouth [place] 00 daily. Medical Branch coQ10, Yes [id number] 1{capsu Take 1 U nivers ubiquinol, 1-16 le} capsule by ity of 100 mg Cap 00:00: mouth [place] 00 daily. Medical Branch coQ10, Yes [id number] 1{capsu Take 1 U nivers ubiquinol, 1-16 le} capsule by ity of 100 mg Cap 00:00: mouth [place] 00 daily. Medical Branch coQ10, Yes [id number] 1{capsu Take 1 U nivers ubiquinol, 1-16 le} capsule by ity of 100 mg Cap 00:00: mouth [place] 00 daily. Medical Branch coQ10, Yes [id number] 1{capsu Take 1 U nivers ubiquinol, 1-16 le} capsule by ity of 100 mg Cap 00:00: mouth [place] 00 daily. Medical Branch coQ10, Yes [id number] 1{capsu Take 1 U nivers ubiquinol, 1-16 le} capsule by ity of 100 mg Cap 00:00: mouth [place] 00 daily. [facility] Branch coQ10, Yes [id number] 1{capsu Take 1 U nivers ubiquinol, 1-16 le} capsule by ity of 100 mg Cap 00:00: mouth [place] 00 daily. [facility] Branch coQ10, Yes [id number] 1{capsu Take 1 U nivers ubiquinol, 1-16 le} capsule by ity of 100 mg Cap 00:00: mouth [place] 00 daily. [facility] Branch coQ10, Yes [id number] 1{capsu Take 1 U nivers ubiquinol, 1-16 le} capsule by ity of 100 mg Cap 00:00: mouth [place] 00 daily. Medical Branch coQ10, Yes [id number] 1{capsu Take 1 U nivers ubiquinol, 1-16 le} capsule by ity of 100 mg Cap 00:00: mouth [place] 00 daily. [facility] Branch coQ10, Yes [id number] 1{capsu Take 1 U nivers ubiquinol, 1-16 le} capsule by ity of 100 mg Cap 00:00: mouth [place] 00 daily. Medical Branch coQ10, Yes [id number] 1{capsu Take 1 U nivers ubiquinol, 1-16 le} capsule by ity of 100 mg Cap 00:00: mouth [place] 00 daily. [facility] Branch coQ10, Yes [id number] 1{capsu Take 1 U nivers ubiquinol, 1-16 le} capsule by ity of 100 mg Cap 00:00: mouth [place] 00 daily. [facility] Branch coQ10, Yes [id number] 1{capsu Take 1 U nivers ubiquinol, 1-16 le} capsule by ity of 100 mg Cap 00:00: mouth [place] 00 daily. [facility] Branch coQ10, Yes [id number] 1{capsu Take 1 U nivers ubiquinol, 1-16 le} capsule by ity of 100 mg Cap 00:00: mouth [place] 00 daily. [facility] Branch coQ10, Yes [id number] 1{capsu Take 1 U nivers ubiquinol, 1-16 le} capsule by ity of 100 mg Cap 00:00: mouth [place] 00 daily. [facility] Branch coQ10, Yes [id number] 1{capsu Take 1 U nivers ubiquinol, 1-16 le} capsule by ity of 100 mg Cap 00:00: mouth [place] 00 daily. [facility] Branch coQ10, Yes [id number] 1{capsu Take 1 U nivers ubiquinol, 1-16 le} capsule by ity of 100 mg Cap 00:00: mouth [place] 00 daily. [facility] Branch coQ10, Yes [id number] 1{capsu Take 1 U nivers ubiquinol, 1-16 le} capsule by ity of 100 mg Cap 00:00: mouth [place] 00 daily. [facility] Branch coQ10, Yes [id number] 1{capsu Take 1 U nivers ubiquinol, 1-16 le} capsule by ity of 100 mg Cap 00:00: mouth [place] 00 daily. [facility] Branch coQ10, Yes [id number] 1{capsu Take 1 U nivers ubiquinol, 1-16 le} capsule by ity of 100 mg Cap 00:00: mouth [place] 00 daily. [facility] coQ10, Yes [id number] 1{capsu Take 1 U nivers ubiquinol, 1-16 le} capsule by ity of 100 mg Cap 00:00: mouth [place] 00 daily. [facility] Branch coQ10, Yes [id number] 1{capsu Take 1 U nivers ubiquinol, 1-16 le} capsule by ity of 100 mg Cap 00:00: mouth [place] 00 daily. [facility] Branch coQ10, Yes [id number] 1{capsu Take 1 U nivers ubiquinol, 1-16 le} capsule by ity of 100 mg Cap 00:00: mouth [place] 00 daily. [facility] Branch coQ10, Yes [id number] 1{capsu Take 1 U nivers ubiquinol, 1-16 le} capsule by ity of 100 mg Cap 00:00: mouth [place] 00 daily. [facility] coQ10, Yes [id number] 1{capsu Take 1 U nivers ubiquinol, 1-16 le} capsule by ity of 100 mg Cap 00:00: mouth [place] 00 daily. [facility] coQ10, Yes [id number] 1{capsu Take 1 U nivers ubiquinol, 1-16 le} capsule by ity of 100 mg Cap 00:00: mouth [place] 00 daily. [facility] coQ10, Yes [id number] 1{capsu Take 1 U nivers ubiquinol, 1-16 le} capsule by ity of 100 mg Cap 00:00: mouth [place] 00 daily. [facility] coQ10, Yes [id number] 1{capsu Take 1 U nivers ubiquinol, 1-16 le} capsule by ity of 100 mg Cap 00:00: mouth [place] 00 daily. [facility] coQ10, Yes [id number] 1{capsu Take 1 U nivers ubiquinol, 1-16 le} capsule by ity of 100 mg Cap 00:00: mouth [place] 00 daily. [facility] coQ10, Yes [id number] 1{capsu Take 1 U nivers ubiquinol, 1-16 le} capsule by ity of 100 mg Cap 00:00: mouth [place] 00 daily. [facility] coQ10, Yes [id number] 1{capsu Take 1 U nivers ubiquinol, 1-16 le} capsule by ity of 100 mg Cap 00:00: mouth [place] 00 daily. [facility] coQ10, Yes [id number] 1{capsu Take 1 U nivers ubiquinol, 1-16 le} capsule by ity of 100 mg Cap 00:00: mouth [place] 00 daily. [facility] coQ10, Yes [id number] 1{capsu Take 1 U nivers ubiquinol, 1-16 le} capsule by ity of 100 mg Cap 00:00: mouth [place] 00 daily. [facility] coQ10, Yes [id number] 1{capsu Take 1 U nivers ubiquinol, 1-16 le} capsule by ity of 100 mg Cap 00:00: mouth [place] 00 daily. [facility] loratadine Yes [id number] 10mg Take 1 [facility] 10 mg 1-23 tablet by ity of tablet 00:00: mouth [place] 00 daily. [facility] loratadine Yes [id number] 10mg Take 1 [facility] 10 mg 1-23 tablet by ity of tablet 00:00: mouth [place] 00 daily. [facility] loratadine Yes [id number] 10mg Take 1 [facility] 10 mg 1-23 tablet by ity of tablet 00:00: mouth [place] 00 daily. [facility] loratadine Yes [id number] 10mg Take 1 [facility] 10 mg 1-23 tablet by ity of tablet 00:00: mouth [place] 00 daily. [facility] loratadine Yes [id number] 10mg Take 1 [facility] 10 mg 1-23 tablet by ity of tablet 00:00: mouth [place] 00 daily. [facility] loratadine 2021- No [id number] 10mg Take 1 [facility] 10 mg 1-23 06-13 tablet by ity of tablet 00:00: 00:00 mouth [place] 00 :00 daily. 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) SARS-COV-2 COVID-19 2022-07-27 Completed [facility] of [facility] VACCINE 00:00:00 [facility] 12 YRS+, BIVALENT Branch 0.3ML, IM, (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) SARS-COV-2 COVID-19 2022-07-27 Completed [facility] of [facility] VACCINE 00:00:00 [facility] 12 YRS+, BIVALENT Branch 0.3ML, IM, (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) SARS-COV-2 COVID-19 2022-07-27 Completed [facility]ive [facility] of [facility] VACCINE 00:00:00 [facility] 12 YRS+, BIVALENT Branch 0.3ML, IM, (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) SARS-COV-2 COVID-19 2022-07-27 Completed [facility] rs[facility] of [facility] VACCINE 00:00:00 [facility] 12 YRS+, BIVALENT Branch 0.3ML, IM, (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) SARS-COV-2 COVID-19 2022-07-27 Completed [facility]ive [facility] of [facility] VACCINE 00:00:00 [facility] 12 YRS+, BIVALENT Branch 0.3ML, IM, (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) SARS-COV-2 COVID-19 2022-07-27 Completed [facility] of [facility] VACCINE 00:00:00 [facility] 12 YRS+, BIVALENT Branch 0.3ML, IM, (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) SARS-COV-2 COVID-19 2022-07-27 Completed [facility]ive [facility] of [facility] VACCINE 00:00:00 [facility] 12 YRS+, BIVALENT Branch 0.3ML, IM, (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) SARS-COV-2 COVID-19 2022-07-27 Completed [facility]ive rsity of [facility] VACCINE 00:00:00 [facility] 12 YRS+, BIVALENT Branch 0.3ML, IM, (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) SARS-COV-2 COVID-19 2022-07-27 Completed [facility]ive [facility] of [facility] VACCINE 00:00:00 [facility] 12 YRS+, BIVALENT Branch 0.3ML, IM, (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) SARS-COV-2 COVID-19 2022-07-27 Completed [facility]ive rsity of [facility] VACCINE 00:00:00 [facility] 12 YRS+, BIVALENT Branch 0.3ML, IM, (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) SARS-COV-2 COVID-19 2022-07-27 Completed [facility]ive rsity of [facility] VACCINE 00:00:00 [facility] 12 YRS+, BIVALENT Branch 0.3ML, IM, (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) SARS-COV-2 COVID-19 2022-07-27 Completed [facility]ive rsity of [facility] VACCINE 00:00:00 [facility] 12 YRS+, BIVALENT Branch 0.3ML, IM, (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) SARS-COV-2 COVID-19 2022-07-27 Completed [facility]ive rsity of [facility] VACCINE 00:00:00 [facility] 12 YRS+, BIVALENT Branch 0.3ML, IM, (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) SARS-COV-2 COVID-19 2022-07-27 Completed Unive rsity of [facility]CR[facility] VACCINE 00:00:00 [facility] 12 YRS+, BIVALENT Branch 0.3ML, IM, (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) SARS-COV-2 COVID-19 2022-07-27 Completed Unive rsity of [facility]CR[facility] VACCINE 00:00:00 [facility] 12 YRS+, BIVALENT Branch 0.3ML, IM, (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) SARS-COV-2 COVID-19 2022-07-27 Completed Unive rsity of [facility] VACCINE 00:00:00 [facility] 12 YRS+, BIVALENT Branch 0.3ML, IM, (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) SARS-COV-2 COVID-19 2022-07-27 Completed [facility]ive rsity of [facility] VACCINE 00:00:00 [facility] 12 YRS+, BIVALENT Branch 0.3ML, IM, (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) SARS-COV-2 COVID-19 2022-07-27 Completed [facility]ive rsity of [facility] VACCINE 00:00:00 [facility] 12 YRS+, BIVALENT Branch 0.3ML, IM, (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) SARS-COV-2 COVID-19 2022-07-27 Completed [facility]ive rsity of [facility] VACCINE 00:00:00 [facility] 12 YRS+, BIVALENT Branch 0.3ML, IM, (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) SARS-COV-2 COVID-19 2022-07-27 Completed Unive rsity of [facility]CR[facility] VACCINE 00:00:00 [facility] 12 YRS+, BIVALENT Branch 0.3ML, IM, (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) SARS-COV-2 COVID-19 2022-07-27 Completed Unive rsity of [facility]CR[facility] VACCINE 00:00:00 [facility] 12 YRS+, BIVALENT Branch 0.3ML, IM, (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) SARS-COV-2 COVID-19 2022-07-27 Completed Unive rsity of [facility] VACCINE 00:00:00 [facility] 12 YRS+, BIVALENT Branch 0.3ML, IM, (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) SARS-COV-2 COVID-19 2022-07-27 Completed Unive rsity of [facility] VACCINE 00:00:00 [facility] 12 YRS+, BIVALENT Branch 0.3ML, IM, (PFIZER FOUNTANI TOP BOOSTER) SARS-COV-2 COVID-19 2022-07-27 Completed Unive rsity of [facility] VACCINE 00:00:00 [facility] 12 YRS+, BIVALENT Branch 0.3ML, IM, (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) SARS-COV-2 COVID-19 2022-07-27 Completed Unive rsity of [facility] VACCINE 00:00:00 [facility] 12 YRS+, BIVALENT Branch 0.3ML, IM, (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) SARS-COV-2 COVID-19 2022-07-27 Completed Unive rsity of [facility] VACCINE 00:00:00 [facility] 12 YRS+, BIVALENT Branch 0.3ML, IM, (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) SARS-COV-2 COVID-19 2022-07-27 Completed Unive rsity of [facility]CR[facility] VACCINE 00:00:00 [facility] 12 YRS+, BIVALENT Branch 0.3ML, IM, (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) SARS-COV-2 COVID-19 2022-07-27 Completed Unive rsity of [facility]CR[facility] VACCINE 00:00:00 [facility] 12 YRS+, BIVALENT Branch 0.3ML, IM, (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) SARS-COV-2 COVID-19 2022-07-27 Completed Unive rsity of [facility] VACCINE 00:00:00 [facility] 12 YRS+, BIVALENT Branch 0.3ML, IM, (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) SARS-COV-2 COVID-19 2022-07-27 Completed Unive rsity of [facility]CR[facility] VACCINE 00:00:00 [facility] 12 YRS+, BIVALENT Branch 0.3ML, IM, (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) SARS-COV-2 COVID-19 2022-07-27 Completed Unive rsity of [facility] VACCINE 00:00:00 [facility] 12 YRS+, BIVALENT Branch 0.3ML, IM, (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) SARS-COV-2 COVID-19 2022-07-27 Completed Unive rsity of [facility]SUCR[facility] VACCINE 00:00:00 [facility] 12 YRS+, BIVALENT Branch 0.3ML, IM, (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) SARS-COV-2 COVID-19 2022-07-27 Completed Unive rsity of [facility] VACCINE 00:00:00 [facility] 12 YRS+, BIVALENT Branch 0.3ML, IM, (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) SARS-COV-2 COVID-19 2022-07-27 Completed Unive rsity of [facility]SUCROSE VACCINE 00:00:00 [facility] 12 YRS+, BIVALENT Branch 0.3ML, IM, (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) SARS-COV-2 COVID-19 2022-07-27 Completed Unive rsity of [facility]SUCR[facility] VACCINE 00:00:00 [facility] 12 YRS+, BIVALENT Branch 0.3ML, IM, (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) SARS-COV-2 COVID-19 2022-07-27 Completed Unive rsity of [facility]-SUCROSE VACCINE 00:00:00 [facility] 12 YRS+, BIVALENT Branch 0.3ML, IM, (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) SARS-COV-2 COVID-19 2022-07-27 Completed Unive rsity of [facility]-SUCROSE VACCINE 00:00:00 [facility] 12 YRS+, BIVALENT Branch 0.3ML, IM, (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) SARS-COV-2 COVID-19 2022-07-27 Completed Unive rsity of [facility]-SUCROSE VACCINE 00:00:00 [facility] 12 YRS+, BIVALENT Branch 0.3ML, IM, (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) SARS-COV-2 COVID-19 2022-07-27 Completed Unive rsity of [facility]EL[facility]-SUCROSE VACCINE 00:00:00 [facility] 12 YRS+, BIVALENT Branch 0.3ML, IM, (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) SARS-COV-2 COVID-19 2022-07-27 Completed Unive rsity of [facility]-SUCR[facility] VACCINE 00:00:00 [facility] 12 YRS+, BIVALENT Branch 0.3ML, IM, (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) SARS-COV-2 COVID-19 2022-07-27 Completed Unive rsity of [facility]ELLE-SUCROSE VACCINE 00:00:00 [facility] 12 YRS+, BIVALENT Branch 0.3ML, IM, (PFIZER [...] Completed Unive rsity of [facility]STELLE-SUCROSE VACCINE 00:00:00 [facility]+, BIVALENT Branch 0.3ML, [...] b) 2022-02-24 Completed Uni versity of 00:00:00 [facility] Twinrix (hep a/hep b) 2022-02-24 Completed Uni versity of 00:00:00 [facility] Twin[facility] (hep a/hep b) 2022-02-24 Completed Uni versity of 00:00:00 [facility] Twinrix (hep a/hep b) 2022-02-24 Completed Uni versity of 00:00:00 [facility] Twin[facility] (hep a/hep b) 2022-02-24 Completed Uni versity of 00:00:00 [facility] Twin[facility] (hep a/hep b) 2022-02-24 Completed Uni versity of 00:00:00 [facility] Twinrix (hep a/hep b) 2022-02-24 Completed Uni versity of 00:00:00 [facility] Twinrix (hep a/hep b) 2022-02-24 Completed Uni versity of 00:00:00 [place] [facility] Twinrix (hep a/hep b) 2022-02-24 Completed Uni versity of 00:00:00 [place] [facility] Twin[facility] (hep a/hep b) 2022-02-24 Completed Uni versity of 00:00:00 [place] [facility] Twin[facility] (hep a/hep b) 2022-02-24 Completed Uni versity of 00:00:00 [place] [facility] Twin[facility] (hep a/hep b) 2022-02-24 Completed Uni versity of 00:00:00 [place] [facility] Twinrix (hep a/hep b) 2022-02-24 Completed Uni versity of 00:00:00 [place] [facility] Twin[facility] (hep a/hep b) 2022-02-24 Completed Uni versity of 00:00:00 [facility] Twin[facility] (hep a/hep b) 2022-02-24 Completed Uni versity of 00:00:00 [facility] Twin[facility] (hep a/hep b) 2022-02-24 Completed Uni versity of 00:00:00 [facility] Twin[facility] (hep a/hep b) 2022-02-24 Completed Uni versity of 00:00:00 [facility] Twin[facility] (hep a/hep b) 2022-02-24 Completed Uni versity of 00:00:00 [facility] Twin[facility] (hep a/hep b) 2022-02-24 Completed Uni versity of 00:00:00 [facility] Twin[facility] (hep a/hep b) 2022-02-24 Completed Uni versity of 00:00:00 [place] [facility] Twinrix (hep a/hep b) 2022-02-24 Completed Uni versity of 00:00:00 [place] [facility] Twinrix (hep a/hep b) 2022-02-24 Completed Uni versity of 00:00:00 [place] [facility] Twinrix (hep a/hep b) 2022-02-24 Completed Uni versity of 00:00:00 [facility] Twinrix (hep a/hep b) 2022-02-24 Completed Uni versity of 00:00:00 [facility] Twin[facility] (hep a/hep b) 2022-02-24 Completed Uni versity of 00:00:00 [place] [facility] Twinrix (hep a/hep b) 2022-02-24 Completed Uni versity of 00:00:00 [place] [facility] Twinrix (hep a/hep b) 2022-02-24 Completed Uni versity of 00:00:00 [place] [facility] Twinrix (hep a/hep b) 2022-02-24 Completed Uni versity of 00:00:00 [place] [facility] Twin[facility] (hep a/hep b) 2022-02-24 Completed Uni versity of 00:00:00 [place] [facility] Twinrix (hep a/hep b) 2022-02-24 Completed Uni versity of 00:00:00 [place] [facility] Twinrix (hep a/hep b) 2022-02-24 Completed Uni versity of 00:00:00 [place] [facility] Twinrix (hep a/hep b) 2022-02-24 Completed Uni versity of 00:00:00 [facility] Twinrix (hep a/hep b) 2022-02-24 Completed Uni versity of 00:00:00 [facility] Twin[facility] (hep a/hep b) 2022-02-24 Completed Uni versity of 00:00:00 [facility] Twin[facility] (hep a/hep b) 2022-02-24 Completed Uni versity of 00:00:00 [facility] Twin[facility] (hep a/hep b) 2022-02-24 Completed Uni versity of 00:00:00 [facility] Twin[facility] (hep a/hep b) 2022-02-24 Completed Uni versity of 00:00:00 [place] [facility] Twinrix (hep a/hep b) 2022-02-24 Completed Uni versity of 00:00:00 [place] [facility] Twinrix (hep a/hep b) 2022-02-24 Completed Uni versity of 00:00:00 [place] [facility] Twinrix (hep a/hep b) 2022-02-24 Completed Uni versity of 00:00:00 [place] [facility] Twinrix (hep a/hep b) 2022-02-24 Completed Uni versity of 00:00:00 [facility] Twinrix (hep a/hep b) 2022-02-24 Completed [...] b) 2022-02-24 Completed Uni versity of 00:00:00 [place] [facility] Twinrix (hep a/hep b) 2022-02-24 Completed Uni versity of 00:00:00 [place] [facility] Twinrix (hep a/hep b) 2022-02-24 Completed Uni versity of 00:00:00 [place] [facility] Twinrix (hep a/hep b) 2022-02-24 Completed Uni versity of 00:00:00 [place] [facility] Twinrix (hep a/hep b) 2022-02-24 Completed Uni versity of 00:00:00 [place] [facility] Twinrix (hep a/hep b) 2022-02-24 Completed Uni versity of 00:00:00 [facility] Twinrix (hep a/hep b) 2022-02-24 Completed [...] b) 2022-02-24 Completed Uni versity of 00:00:00 [place] [facility] Twinrix (hep a/hep b) 2022-02-24 Completed Uni versity of 00:00:00 [place] [facility] Twinrix (hep a/hep b) 2022-02-24 Completed Uni versity of 00:00:00 [place] [facility] Twinrix (hep a/hep b) 2022-02-24 Completed Uni versity of 00:00:00 [place] [facility] Twin[facility] (hep a/hep b) 2022-02-24 Completed Uni versity of 00:00:00 [place] [facility] Twin[facility] (hep a/hep b) 2022-02-24 Completed Uni versity of 00:00:00 [facility] Twinrix (hep a/hep b) 2022-02-24 Completed Uni versity of 00:00:00 [facility] Twin[facility] (hep a/hep b) 2022-02-24 Completed Uni versity of 00:00:00 [facility] Twin[facility] (hep a/hep b) 2022-02-24 Completed Uni versity of 00:00:00 [facility] Twin[facility] (hep a/hep b) 2022-02-24 Completed Uni versity of 00:00:00 [facility] Twin[facility] (hep a/hep b) 2022-02-24 Completed Uni versity of 00:00:00 [facility] Twin[facility] (hep a/hep b) 2022-02-24 Completed Uni versity of 00:00:00 [facility] Twin[facility] (hep a/hep b) 2022-02-24 Completed Uni versity of 00:00:00 [facility] Twin[facility] (hep a/hep b) 2022-02-24 Completed Uni versity of 00:00:00 [facility] Twin[facility] (hep a/hep b) 2022-02-24 Completed Uni versity of 00:00:00 [facility] Twin[facility] (hep a/hep b) 2022-02-24 Completed Uni versity of 00:00:00 [facility] Twin[facility] (hep a/hep b) 2022-02-24 Completed Uni versity of 00:00:00 [facility] Twin[facility] (hep a/hep b) 2022-02-24 Completed [...] b) 2022-02-24 Completed Uni versity of 00:00:00 [place] [facility] Twinrix (hep a/hep b) 2022-02-24 Completed Uni versity of 00:00:00 [place] [facility] Twinrix (hep a/hep b) 2022-02-24 Completed Uni versity of 00:00:00 [place] [facility] Twinrix (hep a/hep b) 2022-02-24 Completed Uni versity of 00:00:00 [facility] Twinrix (hep a/hep b) 2022-02-24 Completed Uni versity of 00:00:00 [facility] Twin[facility] (hep a/hep b) 2022-02-24 Completed Uni versity of 00:00:00 [facility] Twin[facility] (hep a/hep b) 2022-02-24 Completed Uni versity of 00:00:00 [place] [facility] Twinrix (hep a/hep b) 2022-02-24 Completed Uni versity of 00:00:00 [place] [facility] Twin[facility] (hep a/hep b) 2022-02-24 Completed Uni versity of 00:00:00 [place] [facility] Twin[facility] (hep a/hep b) 2022-02-24 Completed Uni versity of 00:00:00 [place] [facility] Twinrix (hep a/hep b) 2022-02-24 Completed Uni versity of 00:00:00 [place] [facility] Twin[facility] (hep a/hep b) 2022-02-24 Completed Uni versity of 00:00:00 [facility] Twinrix (hep a/hep b) 2022-02-24 Completed Uni versity of 00:00:00 [place] [facility] Twin[facility] (hep a/hep b) 2022-02-24 Completed Uni versity of 00:00:00 [place] [facility] Twin[facility] (hep a/hep b) 2022-02-24 Completed Uni versity of 00:00:00 [place] [facility] Twin[facility] (hep a/hep b) 2022-02-24 Completed Uni versity of 00:00:00 [place] [facility] Twin[facility] (hep a/hep b) 2022-02-24 Completed Uni versity of 00:00:00 [facility] Twin[facility] (hep a/hep b) 2022-02-24 Completed Uni versity of 00:00:00 [facility] Twin[facility] (hep a/hep b) 2022-01-14 Completed Uni versity of 00:00:00 [facility] Twin[facility] (hep a/hep b) 2022-01-14 Completed Uni versity of 00:00:00 [facility] Twin[facility] (hep a/hep b) 2022-01-14 Completed Uni versity of 00:00:00 [facility] Twin[facility] (hep a/hep b) 2022-01-14 Completed Uni versity of 00:00:00 [facility] Twin[facility] (hep a/hep b) 2022-01-14 Completed Uni versity of 00:00:00 [facility] Twin[facility] (hep a/hep b) 2022-01-14 Completed Uni versity of 00:00:00 [facility] Twin[facility] (hep a/hep b) 2022-01-14 Completed Uni versity of 00:00:00 [facility] Twin[facility] (hep a/hep b) 2022-01-14 Completed Uni versity of 00:00:00 [place] [facility] Twinrix (hep a/hep b) 2022-01-14 Completed Uni versity of 00:00:00 [facility] Twin[facility] (hep a/hep b) 2022-01-14 Completed Uni versity of 00:00:00 [facility] Twin[facility] (hep a/hep b) 2022-01-14 Completed [...] b) 2022-01-14 Completed Uni versity of 00:00:00 [place] [facility] Twin[facility] (hep a/hep b) 2022-01-14 Completed Uni versity of 00:00:00 [facility] Twin[facility] (hep a/hep b) 2022-01-14 Completed Uni versity of 00:00:00 [facility] Twin[facility] (hep a/hep b) 2022-01-14 Completed Uni versity of 00:00:00 [facility] Twin[facility] (hep a/hep b) 2022-01-14 Completed Uni versity of 00:00:00 [facility] Twin[facility] (hep a/hep b) 2022-01-14 Completed Uni versity of 00:00:00 [facility] (hep a/hep b) 2022-01-14 Completed Uni versity of 00:00:00 [place] [facility] (hep a/hep b) 2022-01-14 Completed Uni versity of 00:00:00 [place] [facility] (hep a/hep b) 2022-01-14 Completed Uni versity of 00:00:00 [place] [facility] (hep a/hep b) 2022-01-14 Completed Uni versity of 00:00:00 [place] [facility] (hep a/hep b) 2022-01-14 Completed Uni versity of 00:00:00 [facility] Twin[facility] (hep a/hep b) 2022-01-14 Completed Uni versity of 00:00:00 [place] [facility] Twinrix (hep a/hep b) 2022-01-14 Completed Uni versity of 00:00:00 [place] [facility] (hep a/hep b) 2022-01-14 Completed Uni versity of 00:00:00 [place] [facility] (hep a/hep b) 2022-01-14 Completed Uni versity of 00:00:00 [place] [facility] (hep a/hep b) 2022-01-14 Completed Uni versity of 00:00:00 [place] [facility] (hep a/hep b) 2022-01-14 Completed Uni versity of 00:00:00 [place] [facility] (hep a/hep b) 2022-01-14 Completed Uni versity of 00:00:00 [facility] Twin[facility] (hep a/hep b) 2022-01-14 Completed Uni versity of 00:00:00 [facility] (hep a/hep b) 2022-01-14 Completed Uni versity of 00:00:00 [facility] (hep a/hep b) 2022-01-14 Completed Uni versity of 00:00:00 [facility] (hep a/hep b) 2022-01-14 Completed Uni versity of 00:00:00 [facility] (hep a/hep b) 2022-01-14 Completed Uni versity of 00:00:00 [facility] (hep a/hep b) 2022-01-14 Completed Uni versity of 00:00:00 [facility] (hep a/hep b) 2022-01-14 Completed Uni versity of 00:00:00 [place] [facility] Twin[facility] (hep a/hep b) 2022-01-14 Completed Uni versity of 00:00:00 [place] [facility] (hep a/hep b) 2022-01-14 Completed Uni versity of 00:00:00 [facility] Twin[facility] (hep a/hep b) 2022-01-14 Completed Uni versity of 00:00:00 [place] [facility] (hep a/hep b) 2022-01-14 Completed Uni versity of 00:00:00 [facility] (hep a/hep b) 2022-01-14 Completed Uni versity of 00:00:00 [place] [facility] (hep a/hep b) 2022-01-14 Completed Uni versity of 00:00:00 [place] [facility] (hep a/hep b) 2022-01-14 Completed Uni versity of 00:00:00 [place] [facility] (hep a/hep b) 2022-01-14 Completed Uni versity of 00:00:00 [place] [facility] (hep a/hep b) 2022-01-14 Completed Uni versity of 00:00:00 [place] [facility] (hep a/hep b) 2022-01-14 Completed Uni versity of 00:00:00 [place] [facility] (hep a/hep b) 2022-01-14 Completed Uni versity of 00:00:00 [facility] (hep a/hep b) 2022-01-14 Completed Uni versity of 00:00:00 [facility] (hep a/hep b) 2022-01-14 Completed Uni versity of 00:00:00 [facility] (hep a/hep b) 2022-01-14 Completed Uni versity of 00:00:00 [facility] (hep a/hep b) 2022-01-14 Completed Uni versity of 00:00:00 [facility] (hep a/hep b) 2022-01-14 Completed Uni versity of 00:00:00 [facility] (hep a/hep b) 2022-01-14 Completed Uni versity of 00:00:00 [place] [facility] (hep a/hep b) 2022-01-14 Completed Uni versity of 00:00:00 [place] [facility] (hep a/hep b) 2022-01-14 Completed Uni versity of 00:00:00 [place] [facility] (hep a/hep b) 2022-01-14 Completed Uni versity of 00:00:00 [facility] (hep a/hep b) 2022-01-14 Completed Uni versity of 00:00:00 [facility] (hep a/hep b) 2022-01-14 Completed [facility] vers[facility] of 00:00:00 [facility] (hep a/hep b) 2022-01-14 Completed [facility] of 00:00:00 [facility] (hep a/hep b) 2022-01-14 Completed [facility] vers[facility] of 00:00:00 [facility] (hep a/hep b) 2022-01-14 Completed [facility] vers[facility] of 00:00:00 [facility] (hep a/hep b) 2022-01-14 Completed [facility] of 00:00:00 [facility] (hep a/hep b) 2022-01-14 Completed [facility] vers[facility] of 00:00:00 [facility] (hep a/hep b) 2022-01-14 Completed [facility] of 00:00:00 [facility] (hep a/hep b) 2022-01-14 Completed [facility] vers[facility] of 00:00:00 [facility] (hep a/hep b) 2022-01-14 Completed [facility] of 00:00:00 [facility] (hep a/hep b) 2022-01-14 Completed [facility] vers[facility] of 00:00:00 [facility] (hep a/hep b) 2022-01-14 Completed [facility] vers[facility] of 00:00:00 [facility] (hep a/hep b) 2022-01-14 Completed [facility] vers[facility] of 00:00:00 [facility] (hep a/hep b) 2022-01-14 Completed [facility] vers[facility] of 00:00:00 [facility] (hep a/hep b) 2022-01-14 Completed [facility] vers[facility] of 00:00:00 [facility] (hep a/hep b) 2022-01-14 Completed [facility] 00:00:00 [facility] (hep a/hep b) 2022-01-14 Completed [facility] vers[facility] of 00:00:00 [facility] (hep a/hep b) 2022-01-14 Completed [facility] vers[facility] of 00:00:00 [facility] (hep a/hep b) 2022-01-14 Completed [...] b) 2022-01-14 Completed [facility] of 00:00:00 [facility] (hep a/hep b) 2022-01-14 Completed [facility] vers[facility] of 00:00:00 [facility] (hep a/hep b) 2022-01-14 Completed [facility] vers[facility] of 00:00:00 [facility] (hep a/hep b) 2022-01-14 Completed [facility] vers[facility] of 00:00:00 [facility] (hep a/hep b) 2022-01-14 Completed [facility] vers[facility] of 00:00:00 [facility] (hep a/hep b) 2022-01-14 Completed [facility] of 00:00:00 [facility] (hep a/hep b) 2022-01-14 Completed [facility] of 00:00:00 [facility] (hep a/hep b) 2022-01-14 Completed [facility] vers[facility] of 00:00:00 [facility] (hep a/hep b) 2022-01-14 Completed [facility] of 00:00:00 [facility] (hep a/hep b) 2022-01-14 Completed [facility] vers[facility] of 00:00:00 [facility] (hep a/hep b) 2022-01-14 Completed [facility] vers[facility] of 00:00:00 [facility] (hep a/hep b) 2022-01-14 Completed [facility] vers[facility] of 00:00:00 [facility] (hep a/hep b) 2022-01-14 Completed [facility] vers[facility] of 00:00:00 [facility] (hep a/hep b) 2022-01-14 Completed Uni vers[facility] of 00:00:00 [facility] (hep a/hep b) 2022-01-14 Completed [facility] vers[facility] of 00:00:00 [facility] SARS-COV-2 COVID-19 2021-07-23 Completed Unive rsity of PFIZER VACCINE 00:00:00 [facility] SARS-COV-2 COVID-19 2021-07-23 Completed Unive rsity of PFIZER VACCINE 00:00:00 [facility] SARS-COV-2 COVID-19 2021-07-23 Completed [facility]ive rsity of PFIZER VACCINE 00:00:00 [facility] SARS-COV-2 COVID-19 2021-07-23 Completed [facility] of PFIZER VACCINE 00:00:00 [facility] SARS-COV-2 COVID-19 2021-07-23 Completed Unive rsity of PFIZER VACCINE 00:00:00 [facility] SARS-COV-2 COVID-19 2021-07-23 Completed [facility]ive rsity of PFIZER VACCINE 00:00:00 [facility] SARS-COV-2 COVID-19 2021-07-23 Completed [facility]ive rsity of PFIZER VACCINE 00:00:00 [facility] SARS-COV-2 COVID-19 2021-07-23 Completed [facility]ity of PFIZER VACCINE 00:00:00 [facility] SARS-COV-2 COVID-19 2021-07-23 Completed [facility] rsity of PFIZER VACCINE 00:00:00 [facility] SARS-COV-2 COVID-19 2021-07-23 Completed [facility]ive rsity of PFIZER VACCINE 00:00:00 [facility] SARS-COV-2 COVID-19 2021-07-23 Completed Unive rsity of PFIZER VACCINE 00:00:00 [facility] SARS-COV-2 COVID-19 2021-07-23 Completed [facility]ive rsity of PFIZER VACCINE 00:00:00 [facility] SARS-COV-2 COVID-19 2021-07-23 Completed [facility] PFIZER VACCINE 00:00:00 [facility] SARS-COV-2 COVID-19 2021-07-23 Completed Unive rsity of PFIZER VACCINE 00:00:00 [facility] SARS-COV-2 COVID-19 2021-07-23 Completed [facility]ive rsity of PFIZER VACCINE 00:00:00 [facility] SARS-COV-2 COVID-19 2021-07-23 Completed [facility]ive rsity of PFIZER VACCINE 00:00:00 [facility] SARS-COV-2 COVID-19 2021-07-23 Completed [facility]ive rsity of PFIZER VACCINE 00:00:00 [facility] SARS-COV-2 COVID-19 2021-07-23 Completed [facility]ive rsity of PFIZER VACCINE 00:00:00 [facility] SARS-COV-2 COVID-19 2021-07-23 Completed [facility]ive rsity of PFIZER VACCINE 00:00:00 [facility] SARS-COV-2 COVID-19 2021-07-23 Completed [facility]ive rsity of PFIZER VACCINE 00:00:00 [facility] SARS-COV-2 COVID-19 2021-07-23 Completed [facility]ive rsity of PFIZER VACCINE 00:00:00 [facility] SARS-COV-2 COVID-19 2021-07-23 Completed [facility]ive rsity of PFIZER VACCINE 00:00:00 [facility] SARS-COV-2 COVID-19 2021-07-23 Completed [facility] rsity of PFIZER VACCINE 00:00:00 [facility] SARS-COV-2 COVID-19 2021-07-23 Completed [facility]ive rsity of PFIZER VACCINE 00:00:00 [facility] SARS-COV-2 COVID-19 2021-07-23 Completed [facility] rsity of PFIZER VACCINE 00:00:00 [facility] SARS-COV-2 COVID-19 2021-07-23 Completed [facility] rs[facility] of PFIZER VACCINE 00:00:00 [facility] SARS-COV-2 COVID-19 2021-07-23 Completed [facility] of PFIZER VACCINE 00:00:00 [facility] SARS-COV-2 COVID-19 2021-07-23 Completed [facility] of PFIZER VACCINE 00:00:00 [facility] SARS-COV-2 COVID-19 2021-07-23 Completed [facility]ity of PFIZER VACCINE 00:00:00 [facility] SARS-COV-2 COVID-19 2021-07-23 Completed [facility]ity of PFIZER VACCINE 00:00:00 [facility] SARS-COV-2 COVID-19 2021-07-23 Completed [facility] of PFIZER VACCINE 00:00:00 [facility] SARS-COV-2 COVID-19 2021-07-23 Completed [facility] of PFIZER VACCINE 00:00:00 [facility] SARS-COV-2 COVID-19 2021-07-23 Completed [facility] of PFIZER VACCINE 00:00:00 [facility] SARS-COV-2 COVID-19 2021-07-23 Completed [facility]ive [facility]ity of PFIZER VACCINE 00:00:00 [facility] SARS-COV-2 COVID-19 2021-07-23 Completed [facility]ive rsity of PFIZER VACCINE 00:00:00 [facility] SARS-COV-2 COVID-19 2021-07-23 Completed [facility] of PFIZER VACCINE 00:00:00 [facility] SARS-COV-2 COVID-19 2021-07-23 Completed [facility]ive [facility]ity of PFIZER VACCINE 00:00:00 [facility] SARS-COV-2 COVID-19 2021-07-23 Completed [facility] of PFIZER VACCINE 00:00:00 [facility] SARS-COV-2 COVID-19 2021-07-23 Completed [facility]ive [facility] of PFIZER VACCINE 00:00:00 [facility] SARS-COV-2 COVID-19 2021-07-23 Completed [facility] of PFIZER VACCINE 00:00:00 [facility] SARS-COV-2 COVID-19 2021-07-23 Completed [facility] of PFIZER VACCINE 00:00:00 [facility] SARS-COV-2 COVID-19 2021-07-23 Completed [facility] of PFIZER VACCINE 00:00:00 [facility] SARS-COV-2 COVID-19 2021-07-23 Completed [facility]ive [facility]ity of PFIZER VACCINE 00:00:00 [facility] SARS-COV-2 COVID-19 2021-07-23 Completed [facility] rs[facility] of PFIZER VACCINE 00:00:00 [facility] SARS-COV-2 COVID-19 2021-07-23 Completed [facility]ive [facility] of PFIZER VACCINE 00:00:00 [facility] SARS-COV-2 COVID-19 2021-07-23 Completed [facility] of PFIZER VACCINE 00:00:00 [facility] SARS-COV-2 COVID-19 2021-07-23 Completed [facility] of PFIZER VACCINE 00:00:00 [facility] SARS-COV-2 COVID-19 2021-07-23 Completed [facility] of PFIZER VACCINE 00:00:00 [facility] SARS-COV-2 COVID-19 2021-07-23 Completed [facility] of PFIZER VACCINE 00:00:00 [facility] SARS-COV-2 COVID-19 2021-07-23 Completed [facility] of PFIZER VACCINE 00:00:00 [facility] SARS-COV-2 COVID-19 2021-07-23 Completed [facility] of PFIZER VACCINE 00:00:00 [facility] SARS-COV-2 COVID-19 2021-07-23 Completed [facility] of PFIZER VACCINE 00:00:00 [facility] SARS-COV-2 COVID-19 2021-07-23 Completed [facility] of PFIZER VACCINE 00:00:00 [facility] SARS-COV-2 COVID-19 2021-07-23 Completed [facility] of PFIZER VACCINE 00:00:00 [facility] SARS-COV-2 COVID-19 2021-07-23 Completed [facility] of PFIZER VACCINE 00:00:00 [facility] SARS-COV-2 COVID-19 2021-07-23 Completed [facility] of PFIZER VACCINE 00:00:00 [facility] SARS-COV-2 COVID-19 2021-07-23 Completed [facility] of PFIZER VACCINE 00:00:00 [facility] SARS-COV-2 COVID-19 2021-07-23 Completed [facility] of PFIZER VACCINE 00:00:00 [facility] SARS-COV-2 COVID-19 2021-07-23 Completed [facility] of PFIZER VACCINE 00:00:00 [facility] SARS-COV-2 COVID-19 2021-07-23 Completed [facility] of PFIZER VACCINE 00:00:00 [facility] SARS-COV-2 COVID-19 2021-07-23 Completed [facility] of PFIZER VACCINE 00:00:00 [facility] SARS-COV-2 COVID-19 2021-07-23 Completed [facility] of PFIZER VACCINE 00:00:00 [facility] SARS-COV-2 COVID-19 2021-07-23 Completed [facility] of PFIZER VACCINE 00:00:00 [facility] SARS-COV-2 COVID-19 2021-07-23 Completed [facility] of PFIZER VACCINE 00:00:00 [facility] SARS-COV-2 COVID-19 2021-07-23 Completed [facility] of PFIZER VACCINE 00:00:00 [facility] SARS-COV-2 COVID-19 2021-07-23 Completed [facility] of PFIZER VACCINE 00:00:00 [facility] SARS-COV-2 COVID-19 2021-07-23 Completed [facility] of PFIZER VACCINE 00:00:00 [facility] SARS-COV-2 COVID-19 2021-07-23 Completed [facility] of PFIZER VACCINE 00:00:00 [facility] SARS-COV-2 COVID-19 2021-07-23 Completed [facility] of PFIZER VACCINE 00:00:00 [facility] SARS-COV-2 COVID-19 2021-07-23 Completed [facility] of PFIZER VACCINE 00:00:00 [facility] SARS-COV-2 COVID-19 2021-07-23 Completed [facility] of PFIZER VACCINE 00:00:00 [facility] SARS-COV-2 COVID-19 2021-07-23 Completed [facility] of PFIZER VACCINE 00:00:00 [facility] SARS-COV-2 COVID-19 2021-07-23 Completed [facility] of PFIZER VACCINE 00:00:00 [facility] SARS-COV-2 COVID-19 2021-07-23 Completed [facility] of PFIZER VACCINE 00:00:00 [facility] SARS-COV-2 COVID-19 2021-07-23 Completed [facility] of PFIZER VACCINE 00:00:00 [facility] SARS-COV-2 COVID-19 2021-07-23 Completed [facility] of PFIZER VACCINE 00:00:00 [facility] SARS-COV-2 COVID-19 2021-07-23 Completed [facility] of PFIZER VACCINE 00:00:00 [facility] SARS-COV-2 COVID-19 2021-07-23 Completed [facility] of PFIZER VACCINE 00:00:00 [facility] SARS-COV-2 COVID-19 2021-07-23 Completed [facility] of PFIZER VACCINE 00:00:00 [facility] SARS-COV-2 COVID-19 2021-07-23 Completed [facility] of PFIZER VACCINE 00:00:00 [facility] SARS-COV-2 COVID-19 2021-07-23 Completed [facility] of PFIZER VACCINE 00:00:00 [facility] SARS-COV-2 COVID-19 2021-07-23 Completed [facility] of PFIZER VACCINE 00:00:00 [facility] SARS-COV-2 COVID-19 2021-07-23 Completed [facility] of PFIZER VACCINE 00:00:00 [facility] SARS-COV-2 COVID-19 2021-07-23 Completed [facility] of PFIZER VACCINE 00:00:00 [facility] SARS-COV-2 COVID-19 2021-07-23 Completed [facility] of PFIZER VACCINE 00:00:00 [facility] SARS-COV-2 COVID-19 2021-07-23 Completed [facility] of PFIZER VACCINE 00:00:00 [facility] SARS-COV-2 COVID-19 2021-07-23 Completed [facility] of PFIZER VACCINE 00:00:00 [facility] SARS-COV-2 COVID-19 2021-07-23 Completed [facility] of PFIZER VACCINE 00:00:00 [facility] SARS-COV-2 COVID-19 2021-07-23 Completed [facility] of PFIZER VACCINE 00:00:00 [facility] SARS-COV-2 COVID-19 2021-07-23 Completed [facility] of PFIZER VACCINE 00:00:00 [facility] SARS-COV-2 COVID-19 2021-07-23 Completed [facility] of PFIZER VACCINE 00:00:00 [facility] SARS-COV-2 COVID-19 2021-07-23 Completed [facility] of PFIZER VACCINE 00:00:00 [facility] SARS-COV-2 COVID-19 2021-07-23 Completed [facility] of PFIZER VACCINE 00:00:00 [facility] SARS-COV-2 COVID-19 2021-07-23 Completed [facility] of PFIZER VACCINE 00:00:00 [facility] SARS-COV-2 COVID-19 2021-07-23 Completed [facility] of PFIZER VACCINE 00:00:00 [facility] SARS-COV-2 COVID-19 2021-07-23 Completed [facility] of PFIZER VACCINE 00:00:00 [facility] SARS-COV-2 COVID-19 2021-07-23 Completed [facility] of PFIZER VACCINE 00:00:00 [facility] SARS-COV-2 COVID-19 2021-07-23 Completed [facility] of PFIZER VACCINE 00:00:00 [facility] SARS-COV-2 COVID-19 2021-07-23 Completed [facility] of PFIZER VACCINE 00:00:00 [facility] SARS-COV-2 COVID-19 2021-07-23 Completed [facility] of PFIZER VACCINE 00:00:00 [facility] Influenza Virus 2021-05-27 Completed [facility] Vaccine (3+ yrs) 00:00:00 [facility] Influenza Virus 2021-05-27 Completed [facility] y of Vaccine (3+ yrs) 00:00:00 [facility] Influenza Virus 2021-05-27 Completed [facility] y of Vaccine (3+ yrs) 00:00:00 [facility] Influenza Virus 2021-05-27 Completed [facility] y of Vaccine (3+ yrs) 00:00:00 [facility] Influenza Virus 2021-05-27 Completed [facility] of Vaccine (3+ yrs) 00:00:00 [facility] Influenza Virus 2021-05-27 Completed [facility] of Vaccine (3+ yrs) 00:00:00 [facility] Influenza Virus 2021-05-27 Completed [facility] of Vaccine (3+ yrs) 00:00:00 [facility] Influenza Virus 2021-05-27 Completed [facility] of Vaccine (3+ yrs) 00:00:00 [facility] Influenza Virus 2021-05-27 Completed [facility] of Vaccine (3+ yrs) 00:00:00 [facility] Influenza Virus 2021-05-27 Completed [facility] y of Vaccine (3+ yrs) 00:00:00 [facility] Influenza Virus 2021-05-27 Completed [facility] of Vaccine (3+ yrs) 00:00:00 [facility] Influenza Virus 2021-05-27 Completed [facility] y of Vaccine (3+ yrs) 00:00:00 [facility] Influenza Virus 2021-05-27 Completed [facility] of Vaccine (3+ yrs) 00:00:00 [facility] Influenza Virus 2021-05-27 Completed [facility] of Vaccine (3+ yrs) 00:00:00 [facility] Influenza Virus 2021-05-27 Completed [facility] of Vaccine (3+ yrs) 00:00:00 [facility] Influenza Virus 2021-05-27 Completed [facility] of Vaccine (3+ yrs) 00:00:00 [facility] Influenza Virus 2021-05-27 Completed [facility] of Vaccine (3+ yrs) 00:00:00 [facility] Influenza Virus 2021-05-27 Completed [facility] of Vaccine (3+ yrs) 00:00:00 [facility] Influenza Virus 2021-05-27 Completed [facility] of Vaccine (3+ yrs) 00:00:00 [facility] Influenza Virus 2021-05-27 Completed [facility] of Vaccine (3+ yrs) 00:00:00 [facility] Influenza Virus 2021-05-27 Completed [facility] of Vaccine (3+ yrs) 00:00:00 [facility] Influenza Virus 2021-05-27 Completed [facility] Vaccine (3+ yrs) 00:00:00 [facility] Influenza Virus 2021-05-27 Completed [facility] of Vaccine (3+ yrs) 00:00:00 [facility] Influenza Virus 2021-05-27 Completed [facility] Vaccine (3+ yrs) 00:00:00 [facility] Influenza Virus 2021-05-27 Completed [facility] Vaccine (3+ yrs) 00:00:00 [facility] Influenza Virus 2021-05-27 Completed [facility] of Vaccine (3+ yrs) 00:00:00 [facility] Influenza Virus 2021-05-27 Completed [facility] of Vaccine (3+ yrs) 00:00:00 [facility] Influenza Virus 2021-05-27 Completed [facility] of Vaccine (3+ yrs) 00:00:00 [facility] Influenza Virus 2021-05-27 Completed [facility] of Vaccine (3+ yrs) 00:00:00 [facility] Influenza Virus 2021-05-27 Completed [facility] of Vaccine (3+ yrs) 00:00:00 [facility] Influenza Virus 2021-05-27 Completed [facility] of Vaccine (3+ yrs) 00:00:00 [facility] Influenza Virus 2021-05-27 Completed [facility] Vaccine (3+ yrs) 00:00:00 [facility] Influenza Virus 2021-05-27 Completed [facility] Vaccine (3+ yrs) 00:00:00 [facility] Influenza Virus 2021-05-27 Completed [facility] Vaccine (3+ yrs) 00:00:00 [facility] Influenza Virus 2021-05-27 Completed [facility] of Vaccine (3+ yrs) 00:00:00 [facility] Influenza Virus 2021-05-27 Completed [facility] Vaccine (3+ yrs) 00:00:00 [facility] Influenza Virus 2021-05-27 Completed [facility] Vaccine (3+ yrs) 00:00:00 [facility] Influenza Virus 2021-05-27 Completed [facility] Vaccine (3+ yrs) 00:00:00 [facility] Influenza Virus 2021-05-27 Completed [facility] Vaccine (3+ yrs) 00:00:00 [facility] Influenza Virus 2021-05-27 Completed [facility] Vaccine (3+ yrs) 00:00:00 [facility] Influenza Virus 2021-05-27 Completed [facility] Vaccine (3+ yrs) 00:00:00 [facility] Influenza Virus 2021-05-27 Completed [facility] Vaccine (3+ yrs) 00:00:00 [facility] Influenza Virus 2021-05-27 Completed [facility] of Vaccine (3+ yrs) 00:00:00 [facility] Influenza Virus 2021-05-27 Completed [facility] Vaccine (3+ yrs) 00:00:00 [facility] Influenza Virus 2021-05-27 Completed [facility] Vaccine (3+ yrs) 00:00:00 [facility] Influenza Virus 2021-05-27 Completed [facility] Vaccine (3+ yrs) 00:00:00 [facility] Influenza Virus 2021-05-27 Completed [facility] Vaccine (3+ yrs) 00:00:00 [facility] Influenza Virus 2021-05-27 Completed [facility] Vaccine (3+ yrs) 00:00:00 [facility] Influenza Virus 2021-05-27 Completed [facility] Vaccine (3+ yrs) 00:00:00 [facility] Influenza Virus 2021-05-27 Completed [facility] Vaccine (3+ yrs) 00:00:00 [facility] Influenza Virus 2021-05-27 Completed [facility] Vaccine (3+ yrs) 00:00:00 [facility] Influenza Virus 2021-05-27 Completed [facility] Vaccine (3+ yrs) 00:00:00 [facility] Influenza Virus 2021-05-27 Completed [facility] Vaccine (3+ yrs) 00:00:00 [facility] Influenza Virus 2021-05-27 Completed [facility] Vaccine (3+ yrs) 00:00:00 [facility] Influenza Virus 2021-05-27 Completed [facility] Vaccine (3+ yrs) 00:00:00 [facility] Influenza Virus 2021-05-27 Completed [facility] Vaccine (3+ yrs) 00:00:00 [facility] Influenza Virus 2021-05-27 Completed [facility] Vaccine (3+ yrs) 00:00:00 [facility] Influenza Virus 2021-05-27 Completed [facility] Vaccine (3+ yrs) 00:00:00 [facility] Influenza Virus 2021-05-27 Completed [facility] Vaccine (3+ yrs) 00:00:00 [facility] Influenza Virus 2021-05-27 Completed [facility] Vaccine (3+ yrs) 00:00:00 [facility] Influenza Virus 2021-05-27 Completed [facility] Vaccine (3+ yrs) 00:00:00 [facility] Influenza Virus 2021-05-27 Completed [facility] Vaccine (3+ yrs) 00:00:00 [facility] Influenza Virus 2021-05-27 Completed [facility] Vaccine (3+ yrs) 00:00:00 [facility] Influenza Virus 2021-05-27 Completed [facility] Vaccine (3+ yrs) 00:00:00 [facility] Influenza Virus 2021-05-27 Completed [facility] Vaccine (3+ yrs) 00:00:00 [facility] Influenza Virus 2021-05-27 Completed [facility] Vaccine (3+ yrs) 00:00:00 [facility] Influenza Virus 2021-05-27 Completed [facility] Vaccine (3+ yrs) 00:00:00 [facility] Influenza Virus 2021-05-27 Completed [facility] Vaccine (3+ yrs) 00:00:00 [facility] Influenza Virus 2021-05-27 Completed [facility] Vaccine (3+ yrs) 00:00:00 [facility] Influenza Virus 2021-05-27 Completed [facility] Vaccine (3+ yrs) 00:00:00 [facility] Influenza Virus 2021-05-27 Completed [facility] Vaccine (3+ yrs) 00:00:00 [facility] Influenza Virus 2021-05-27 Completed [facility] Vaccine (3+ yrs) 00:00:00 [facility] Influenza Virus 2021-05-27 Completed [facility] Vaccine (3+ yrs) 00:00:00 [facility] Influenza Virus 2021-05-27 Completed [facility] Vaccine (3+ yrs) 00:00:00 [facility] Influenza Virus 2021-05-27 Completed [facility] Vaccine (3+ yrs) 00:00:00 [facility] Influenza Virus 2021-05-27 Completed [facility] Vaccine (3+ yrs) 00:00:00 [facility] Influenza Virus 2021-05-27 Completed [facility] Vaccine (3+ yrs) 00:00:00 [facility] Influenza Virus 2021-05-27 Completed [facility] Vaccine (3+ yrs) 00:00:00 [facility] Influenza Virus 2021-05-27 Completed [facility] Vaccine (3+ yrs) 00:00:00 [facility] Influenza Virus 2021-05-27 Completed [facility] Vaccine (3+ yrs) 00:00:00 [facility] Influenza Virus 2021-05-27 Completed [facility] Vaccine (3+ yrs) 00:00:00 [facility] Influenza Virus 2021-05-27 Completed [facility] Vaccine (3+ yrs) 00:00:00 [facility] Influenza Virus 2021-05-27 Completed [facility] Vaccine (3+ yrs) 00:00:00 [facility] Influenza Virus 2021-05-27 Completed [facility] Vaccine (3+ yrs) 00:00:00 [facility] Influenza Virus 2021-05-27 Completed [facility] Vaccine (3+ yrs) 00:00:00 [facility] Influenza Virus 2021-05-27 Completed [facility] Vaccine (3+ yrs) 00:00:00 [facility] Influenza Virus 2021-05-27 Completed [facility] Vaccine (3+ yrs) 00:00:00 [facility] Influenza Virus 2021-05-27 Completed [facility] Vaccine (3+ yrs) 00:00:00 [facility] Influenza Virus 2021-05-27 Completed [facility] Vaccine (3+ yrs) 00:00:00 [facility] Influenza Virus 2021-05-27 Completed [facility] Vaccine (3+ yrs) 00:00:00 [facility] Influenza Virus 2021-05-27 Completed [facility] Vaccine (3+ yrs) 00:00:00 [facility] Influenza Virus 2021-05-27 Completed [facility] Vaccine (3+ yrs) 00:00:00 [facility] Influenza Virus 2021-05-27 Completed [facility] Vaccine (3+ yrs) 00:00:00 [facility] Influenza Virus 2021-05-27 Completed [facility] Vaccine (3+ yrs) 00:00:00 [facility] Influenza Virus 2021-05-27 Completed [facility] Vaccine (3+ yrs) 00:00:00 [facility] Influenza Virus 2021-05-27 Completed [facility] Vaccine (3+ yrs) 00:00:00 [facility] Influenza Virus 2021-05-27 Completed [facility] Vaccine (3+ yrs) 00:00:00 [facility] Influenza Virus 2021-05-27 Completed [facility] Vaccine (3+ yrs) 00:00:00 [facility] Influenza Virus 2021-05-27 Completed [facility] Vaccine (3+ yrs) 00:00:00 [facility] Influenza Virus 2021-05-27 Completed [facility] Vaccine (3+ yrs) 00:00:00 [facility] SARS-COV-2 COVID-19 2020-12-13 Completed [facility] of PFIZER VACCINE 00:00:00 [facility] SARS-COV-2 COVID-19 2020-12-13 Completed [facility] of PFIZER VACCINE 00:00:00 [facility] SARS-COV-2 COVID-19 2020-12-13 Completed [facility] of PFIZER VACCINE 00:00:00 [facility] SARS-COV-2 COVID-19 2020-12-13 Completed [facility] PFIZER VACCINE 00:00:00 [facility] SARS-COV-2 COVID-19 2020-12-13 Completed [facility] of PFIZER VACCINE 00:00:00 [facility] SARS-COV-2 COVID-19 2020-12-13 Completed [facility] of PFIZER VACCINE 00:00:00 [facility] SARS-COV-2 COVID-19 2020-12-13 Completed [facility] PFIZER VACCINE 00:00:00 [facility] SARS-COV-2 COVID-19 2020-12-13 Completed [facility] of PFIZER VACCINE 00:00:00 [facility] SARS-COV-2 COVID-19 2020-12-13 Completed [facility] PFIZER VACCINE 00:00:00 [facility] SARS-COV-2 COVID-19 2020-12-13 Completed [facility] of PFIZER VACCINE 00:00:00 [facility] SARS-COV-2 COVID-19 2020-12-13 Completed [facility] of PFIZER VACCINE 00:00:00 [facility] SARS-COV-2 COVID-19 2020-12-13 Completed [facility] of PFIZER VACCINE 00:00:00 [facility] SARS-COV-2 COVID-19 2020-12-13 Completed [facility] of PFIZER VACCINE 00:00:00 [facility] SARS-COV-2 COVID-19 2020-12-13 Completed [facility] of PFIZER VACCINE 00:00:00 [facility] SARS-COV-2 COVID-19 2020-12-13 Completed [facility] of PFIZER VACCINE 00:00:00 [facility] SARS-COV-2 COVID-19 2020-12-13 Completed [facility] of PFIZER VACCINE 00:00:00 [facility] SARS-COV-2 COVID-19 2020-12-13 Completed [facility] of PFIZER VACCINE 00:00:00 [facility] SARS-COV-2 COVID-19 2020-12-13 Completed [facility] of PFIZER VACCINE 00:00:00 [facility] SARS-COV-2 COVID-19 2020-12-13 Completed [facility] of PFIZER VACCINE 00:00:00 [facility] SARS-COV-2 COVID-19 2020-12-13 Completed [facility] of PFIZER VACCINE 00:00:00 [facility] SARS-COV-2 COVID-19 2020-12-13 Completed [facility] of PFIZER VACCINE 00:00:00 [facility] SARS-COV-2 COVID-19 2020-12-13 Completed [facility] PFIZER VACCINE 00:00:00 [facility] SARS-COV-2 COVID-19 2020-12-13 Completed [facility] of PFIZER VACCINE 00:00:00 [facility] SARS-COV-2 COVID-19 2020-12-13 Completed [facility] PFIZER VACCINE 00:00:00 [facility] SARS-COV-2 COVID-19 2020-12-13 Completed [facility] PFIZER VACCINE 00:00:00 [facility] SARS-COV-2 COVID-19 2020-12-13 Completed [facility] PFIZER VACCINE 00:00:00 [facility] SARS-COV-2 COVID-19 2020-12-13 Completed [facility] PFIZER VACCINE 00:00:00 [facility] SARS-COV-2 COVID-19 2020-12-13 Completed [facility] of PFIZER VACCINE 00:00:00 [facility] SARS-COV-2 COVID-19 2020-12-13 Completed [facility] PFIZER VACCINE 00:00:00 [facility] SARS-COV-2 COVID-19 2020-12-13 Completed [facility] PFIZER VACCINE 00:00:00 [facility] SARS-COV-2 COVID-19 2020-12-13 Completed [facility] PFIZER VACCINE 00:00:00 [facility] SARS-COV-2 COVID-19 2020-12-13 Completed [facility] PFIZER VACCINE 00:00:00 [facility] SARS-COV-2 COVID-19 2020-12-13 Completed [facility] PFIZER VACCINE 00:00:00 [facility] SARS-COV-2 COVID-19 2020-12-13 Completed [facility] PFIZER VACCINE 00:00:00 [facility] SARS-COV-2 COVID-19 2020-12-13 Completed [facility] PFIZER VACCINE 00:00:00 [facility] SARS-COV-2 COVID-19 2020-12-13 Completed [facility] PFIZER VACCINE 00:00:00 [facility] SARS-COV-2 COVID-19 2020-12-13 Completed [facility] PFIZER VACCINE 00:00:00 [facility] SARS-COV-2 COVID-19 2020-12-13 Completed [facility] PFIZER VACCINE 00:00:00 [facility] SARS-COV-2 COVID-19 2020-12-13 Completed [facility] PFIZER VACCINE 00:00:00 [facility] SARS-COV-2 COVID-19 2020-12-13 Completed [facility] PFIZER VACCINE 00:00:00 [facility] SARS-COV-2 COVID-19 2020-12-13 Completed [facility] PFIZER VACCINE 00:00:00 [facility] SARS-COV-2 COVID-19 2020-12-13 Completed [facility] PFIZER VACCINE 00:00:00 [facility] SARS-COV-2 COVID-19 2020-12-13 Completed [facility] PFIZER VACCINE 00:00:00 [facility] SARS-COV-2 COVID-19 2020-12-13 Completed [facility] PFIZER VACCINE 00:00:00 [facility] SARS-COV-2 COVID-19 2020-12-13 Completed [facility] PFIZER VACCINE 00:00:00 [facility] SARS-COV-2 COVID-19 2020-12-13 Completed [facility] PFIZER VACCINE 00:00:00 [facility] SARS-COV-2 COVID-19 2020-12-13 Completed [facility] PFIZER VACCINE 00:00:00 [facility] SARS-COV-2 COVID-19 2020-12-13 Completed [facility] PFIZER VACCINE 00:00:00 [facility] SARS-COV-2 COVID-19 2020-12-13 Completed [facility] PFIZER VACCINE 00:00:00 [facility] SARS-COV-2 COVID-19 2020-12-13 Completed [facility] PFIZER VACCINE 00:00:00 [facility] SARS-COV-2 COVID-19 2020-12-13 Completed [facility] PFIZER VACCINE 00:00:00 [facility] SARS-COV-2 COVID-19 2020-12-13 Completed [facility] PFIZER VACCINE 00:00:00 [facility] SARS-COV-2 COVID-19 2020-12-13 Completed [facility] PFIZER VACCINE 00:00:00 [facility] SARS-COV-2 COVID-19 2020-12-13 Completed [facility] PFIZER VACCINE 00:00:00 [facility] SARS-COV-2 COVID-19 2020-12-13 Completed [facility] PFIZER VACCINE 00:00:00 [facility] SARS-COV-2 COVID-19 2020-12-13 Completed [facility] PFIZER VACCINE 00:00:00 [facility] SARS-COV-2 COVID-19 2020-12-13 Completed [facility] PFIZER VACCINE 00:00:00 [facility] SARS-COV-2 COVID-19 2020-12-13 Completed [facility] PFIZER VACCINE 00:00:00 [facility] SARS-COV-2 COVID-19 2020-12-13 Completed [facility] PFIZER VACCINE 00:00:00 [facility] SARS-COV-2 COVID-19 2020-12-13 Completed [facility] PFIZER VACCINE 00:00:00 [facility] SARS-COV-2 COVID-19 2020-12-13 Completed [facility] PFIZER VACCINE 00:00:00 [facility] SARS-COV-2 COVID-19 2020-12-13 Completed [facility] PFIZER VACCINE 00:00:00 [facility] SARS-COV-2 COVID-19 2020-12-13 Completed [facility] PFIZER VACCINE 00:00:00 [facility] SARS-COV-2 COVID-19 2020-12-13 Completed [facility] PFIZER VACCINE 00:00:00 [facility] SARS-COV-2 COVID-19 2020-12-13 Completed [facility] PFIZER VACCINE 00:00:00 [facility] SARS-COV-2 COVID-19 2020-12-13 Completed [facility] PFIZER VACCINE 00:00:00 [facility] SARS-COV-2 COVID-19 2020-12-13 Completed [facility] PFIZER VACCINE 00:00:00 [facility] SARS-COV-2 COVID-19 2020-12-13 Completed [facility] PFIZER VACCINE 00:00:00 [facility] SARS-COV-2 COVID-19 2020-12-13 Completed [facility] PFIZER VACCINE 00:00:00 [facility] SARS-COV-2 COVID-19 2020-12-13 Completed [facility] PFIZER VACCINE 00:00:00 [facility] SARS-COV-2 COVID-19 2020-12-13 Completed [facility] PFIZER VACCINE 00:00:00 [facility] SARS-COV-2 COVID-19 2020-12-13 Completed [facility] PFIZER VACCINE 00:00:00 [facility] SARS-COV-2 COVID-19 2020-12-13 Completed [facility] PFIZER VACCINE 00:00:00 [facility] SARS-COV-2 COVID-19 2020-12-13 Completed [facility] PFIZER VACCINE 00:00:00 [facility] SARS-COV-2 COVID-19 2020-12-13 Completed [facility] PFIZER VACCINE 00:00:00 [facility] SARS-COV-2 COVID-19 2020-12-13 Completed [facility] PFIZER VACCINE 00:00:00 [facility] SARS-COV-2 COVID-19 2020-12-13 Completed [facility] PFIZER VACCINE 00:00:00 [facility] SARS-COV-2 COVID-19 2020-12-13 Completed [facility] PFIZER VACCINE 00:00:00 [facility] SARS-COV-2 COVID-19 2020-12-13 Completed [facility] PFIZER VACCINE 00:00:00 [facility] SARS-COV-2 COVID-19 2020-12-13 Completed [facility] PFIZER VACCINE 00:00:00 [facility] SARS-COV-2 COVID-19 2020-12-13 Completed [facility] PFIZER VACCINE 00:00:00 [facility] SARS-COV-2 COVID-19 2020-12-13 Completed [facility] PFIZER VACCINE 00:00:00 [facility] SARS-COV-2 COVID-19 2020-12-13 Completed [facility] PFIZER VACCINE 00:00:00 [facility] SARS-COV-2 COVID-19 2020-12-13 Completed [facility] PFIZER VACCINE 00:00:00 [facility] SARS-COV-2 COVID-19 2020-12-13 Completed [facility] PFIZER VACCINE 00:00:00 [facility] SARS-COV-2 COVID-19 2020-12-13 Completed [facility] PFIZER VACCINE 00:00:00 [facility] SARS-COV-2 COVID-19 2020-12-13 Completed [facility] PFIZER VACCINE 00:00:00 [facility] SARS-COV-2 COVID-19 2020-12-13 Completed [facility] PFIZER VACCINE 00:00:00 [facility] SARS-COV-2 COVID-19 2020-12-13 Completed [facility] PFIZER VACCINE 00:00:00 [facility] SARS-COV-2 COVID-19 2020-12-13 Completed [facility] PFIZER VACCINE 00:00:00 [facility] SARS-COV-2 COVID-19 2020-12-13 Completed [facility] PFIZER VACCINE 00:00:00 [facility] SARS-COV-2 COVID-19 2020-12-13 Completed [facility] PFIZER VACCINE 00:00:00 [facility] SARS-COV-2 COVID-19 2020-12-13 Completed [facility] PFIZER VACCINE 00:00:00 [facility] SARS-COV-2 COVID-19 2020-12-13 Completed [facility] PFIZER VACCINE 00:00:00 [facility] SARS-COV-2 COVID-19 2020-12-13 Completed [facility] PFIZER VACCINE 00:00:00 [facility] SARS-COV-2 COVID-19 2020-12-13 Completed [facility] PFIZER VACCINE 00:00:00 [facility] SARS-COV-2 COVID-19 2020-12-13 Completed [facility] PFIZER VACCINE 00:00:00 [facility] SARS-COV-2 COVID-19 2020-12-13 Completed [facility] PFIZER VACCINE 00:00:00 [facility] SARS-COV-2 COVID-19 2020-12-13 Completed [facility] PFIZER VACCINE 00:00:00 [facility] SARS-COV-2 COVID-19 2020-12-13 Completed [facility] PFIZER VACCINE 00:00:00 [facility] SARS-COV-2 COVID-19 2020-11-22 Completed [facility] PFIZER VACCINE 00:00:00 [facility] SARS-COV-2 COVID-19 2020-11-22 Completed [facility] PFIZER VACCINE 00:00:00 [facility] SARS-COV-2 COVID-19 2020-11-22 Completed [facility] PFIZER VACCINE 00:00:00 [facility] SARS-COV-2 COVID-19 2020-11-22 Completed [facility] PFIZER VACCINE 00:00:00 [facility] SARS-COV-2 COVID-19 2020-11-22 Completed [facility] PFIZER VACCINE 00:00:00 [facility] SARS-COV-2 COVID-19 2020-11-22 Completed [facility] PFIZER VACCINE 00:00:00 [facility] SARS-COV-2 COVID-19 2020-11-22 Completed [facility] PFIZER VACCINE 00:00:00 [facility] SARS-COV-2 COVID-19 2020-11-22 Completed [facility] PFIZER VACCINE 00:00:00 [facility] SARS-COV-2 COVID-19 2020-11-22 Completed [facility] PFIZER VACCINE 00:00:00 [facility] SARS-COV-2 COVID-19 2020-11-22 Completed [facility] PFIZER VACCINE 00:00:00 [facility] SARS-COV-2 COVID-19 2020-11-22 Completed [facility] PFIZER VACCINE 00:00:00 [facility] SARS-COV-2 COVID-19 2020-11-22 Completed [facility] PFIZER VACCINE 00:00:00 [facility] SARS-COV-2 COVID-19 2020-11-22 Completed [facility] PFIZER VACCINE 00:00:00 [facility] SARS-COV-2 COVID-19 2020-11-22 Completed [facility] PFIZER VACCINE 00:00:00 [facility] SARS-COV-2 COVID-19 2020-11-22 Completed [facility] PFIZER VACCINE 00:00:00 [facility] SARS-COV-2 COVID-19 2020-11-22 Completed [facility] PFIZER VACCINE 00:00:00 [facility] SARS-COV-2 COVID-19 2020-11-22 Completed [facility] PFIZER VACCINE 00:00:00 [facility] SARS-COV-2 COVID-19 2020-11-22 Completed [facility] PFIZER VACCINE 00:00:00 [facility] SARS-COV-2 COVID-19 2020-11-22 Completed [facility] PFIZER VACCINE 00:00:00 [facility] SARS-COV-2 COVID-19 2020-11-22 Completed [facility] PFIZER VACCINE 00:00:00 [facility] SARS-COV-2 COVID-19 2020-11-22 Completed [facility] PFIZER VACCINE 00:00:00 [facility] SARS-COV-2 COVID-19 2020-11-22 Completed [facility] PFIZER VACCINE 00:00:00 [facility] SARS-COV-2 COVID-19 2020-11-22 Completed [facility] PFIZER VACCINE 00:00:00 [facility] SARS-COV-2 COVID-19 2020-11-22 Completed [facility] PFIZER VACCINE 00:00:00 [facility] SARS-COV-2 COVID-19 2020-11-22 Completed [facility] PFIZER VACCINE 00:00:00 [facility] SARS-COV-2 COVID-19 2020-11-22 Completed [facility] PFIZER VACCINE 00:00:00 [facility] SARS-COV-2 COVID-19 2020-11-22 Completed [facility] PFIZER VACCINE 00:00:00 [facility] SARS-COV-2 COVID-19 2020-11-22 Completed [facility] PFIZER VACCINE 00:00:00 [facility] SARS-COV-2 COVID-19 2020-11-22 Completed [facility] PFIZER VACCINE 00:00:00 [facility] SARS-COV-2 COVID-19 2020-11-22 Completed [facility] PFIZER VACCINE 00:00:00 [facility] SARS-COV-2 COVID-19 2020-11-22 Completed [facility] PFIZER VACCINE 00:00:00 [facility] SARS-COV-2 COVID-19 2020-11-22 Completed [facility] PFIZER VACCINE 00:00:00 [facility] SARS-COV-2 COVID-19 2020-11-22 Completed [facility] PFIZER VACCINE 00:00:00 [facility] SARS-COV-2 COVID-19 2020-11-22 Completed [facility] PFIZER VACCINE 00:00:00 [facility] SARS-COV-2 COVID-19 2020-11-22 Completed [facility] PFIZER VACCINE 00:00:00 [facility] SARS-COV-2 COVID-19 2020-11-22 Completed [facility] PFIZER VACCINE 00:00:00 [facility] SARS-COV-2 COVID-19 2020-11-22 Completed [facility] PFIZER VACCINE 00:00:00 [facility] SARS-COV-2 COVID-19 2020-11-22 Completed [facility] PFIZER VACCINE 00:00:00 [facility] SARS-COV-2 COVID-19 2020-11-22 Completed [facility] PFIZER VACCINE 00:00:00 [facility] SARS-COV-2 COVID-19 2020-11-22 Completed [facility] PFIZER VACCINE 00:00:00 [facility] SARS-COV-2 COVID-19 2020-11-22 Completed [facility] PFIZER VACCINE 00:00:00 [facility] SARS-COV-2 COVID-19 2020-11-22 Completed [facility] PFIZER VACCINE 00:00:00 [facility] SARS-COV-2 COVID-19 2020-11-22 Completed [facility] PFIZER VACCINE 00:00:00 [facility] SARS-COV-2 COVID-19 2020-11-22 Completed [facility] PFIZER VACCINE 00:00:00 [facility] SARS-COV-2 COVID-19 2020-11-22 Completed [facility] PFIZER VACCINE 00:00:00 [facility] SARS-COV-2 COVID-19 2020-11-22 Completed [facility] PFIZER VACCINE 00:00:00 [facility] SARS-COV-2 COVID-19 2020-11-22 Completed [facility] PFIZER VACCINE 00:00:00 [facility] SARS-COV-2 COVID-19 2020-11-22 Completed [facility] PFIZER VACCINE 00:00:00 [facility] SARS-COV-2 COVID-19 2020-11-22 Completed [facility] PFIZER VACCINE 00:00:00 [facility] SARS-COV-2 COVID-19 2020-11-22 Completed [facility] PFIZER VACCINE 00:00:00 [facility] SARS-COV-2 COVID-19 2020-11-22 Completed [facility] PFIZER VACCINE 00:00:00 [facility] SARS-COV-2 COVID-19 2020-11-22 Completed [facility] PFIZER VACCINE 00:00:00 [facility] SARS-COV-2 COVID-19 2020-11-22 Completed [facility] PFIZER VACCINE 00:00:00 [facility] SARS-COV-2 COVID-19 2020-11-22 Completed [facility] PFIZER VACCINE 00:00:00 [facility] SARS-COV-2 COVID-19 2020-11-22 Completed [facility] PFIZER VACCINE 00:00:00 [facility] SARS-COV-2 COVID-19 2020-11-22 Completed [facility] PFIZER VACCINE 00:00:00 [facility] SARS-COV-2 COVID-19 2020-11-22 Completed [facility] PFIZER VACCINE 00:00:00 [facility] SARS-COV-2 COVID-19 2020-11-22 Completed [facility] PFIZER VACCINE 00:00:00 [facility] SARS-COV-2 COVID-19 2020-11-22 Completed [facility] PFIZER VACCINE 00:00:00 [facility] SARS-COV-2 COVID-19 2020-11-22 Completed [facility] PFIZER VACCINE 00:00:00 [facility] SARS-COV-2 COVID-19 2020-11-22 Completed [facility] PFIZER VACCINE 00:00:00 [facility] SARS-COV-2 COVID-19 2020-11-22 Completed [facility] PFIZER VACCINE 00:00:00 [facility] SARS-COV-2 COVID-19 2020-11-22 Completed [facility] PFIZER VACCINE 00:00:00 [facility] SARS-COV-2 COVID-19 2020-11-22 Completed [facility] PFIZER VACCINE 00:00:00 [facility] SARS-COV-2 COVID-19 2020-11-22 Completed [facility] PFIZER VACCINE 00:00:00 [facility] SARS-COV-2 COVID-19 2020-11-22 Completed [facility] PFIZER VACCINE 00:00:00 [facility] SARS-COV-2 COVID-19 2020-11-22 Completed [facility] PFIZER VACCINE 00:00:00 [facility] SARS-COV-2 COVID-19 2020-11-22 Completed [facility] PFIZER VACCINE 00:00:00 [facility] SARS-COV-2 COVID-19 2020-11-22 Completed [facility] PFIZER VACCINE 00:00:00 [facility] SARS-COV-2 COVID-19 2020-11-22 Completed [facility] of PFIZER VACCINE 00:00:00 [facility] SARS-COV-2 COVID-19 2020-11-22 Completed [facility] of PFIZER VACCINE 00:00:00 [facility] SARS-COV-2 COVID-19 2020-11-22 Completed [facility] of PFIZER VACCINE 00:00:00 [facility] SARS-COV-2 COVID-19 2020-11-22 Completed [facility] of PFIZER VACCINE 00:00:00 [facility] SARS-COV-2 COVID-19 2020-11-22 Completed [facility] of PFIZER VACCINE 00:00:00 [facility] SARS-COV-2 COVID-19 2020-11-22 Completed [facility] of PFIZER VACCINE 00:00:00 [facility] SARS-COV-2 COVID-19 2020-11-22 Completed [facility] of PFIZER VACCINE 00:00:00 [facility] SARS-COV-2 COVID-19 2020-11-22 Completed [facility] of PFIZER VACCINE 00:00:00 [facility] SARS-COV-2 COVID-19 2020-11-22 Completed [facility] of PFIZER VACCINE 00:00:00 [facility] SARS-COV-2 COVID-19 2020-11-22 Completed [facility] of PFIZER VACCINE 00:00:00 [facility] SARS-COV-2 COVID-19 2020-11-22 Completed [facility] of PFIZER VACCINE 00:00:00 [facility] SARS-COV-2 COVID-19 2020-11-22 Completed [facility] of PFIZER VACCINE 00:00:00 [facility] SARS-COV-2 COVID-19 2020-11-22 Completed [facility] of PFIZER VACCINE 00:00:00 [facility] SARS-COV-2 COVID-19 2020-11-22 Completed [facility] of PFIZER VACCINE 00:00:00 [facility] SARS-COV-2 COVID-19 2020-11-22 Completed [facility] of PFIZER VACCINE 00:00:00 [facility] SARS-COV-2 COVID-19 2020-11-22 Completed [facility] of PFIZER VACCINE 00:00:00 [facility] SARS-COV-2 COVID-19 2020-11-22 Completed [facility] of PFIZER VACCINE 00:00:00 [facility] SARS-COV-2 COVID-19 2020-11-22 Completed [facility] of PFIZER VACCINE 00:00:00 [facility] SARS-COV-2 COVID-19 2020-11-22 Completed [facility] of PFIZER VACCINE 00:00:00 [facility] SARS-COV-2 COVID-19 2020-11-22 Completed [facility] of PFIZER VACCINE 00:00:00 [facility] SARS-COV-2 COVID-19 2020-11-22 Completed [facility] of PFIZER VACCINE 00:00:00 [facility] SARS-COV-2 COVID-19 2020-11-22 Completed [facility] of PFIZER VACCINE 00:00:00 [facility] SARS-COV-2 COVID-19 2020-11-22 Completed [facility] of PFIZER VACCINE 00:00:00 [facility] SARS-COV-2 COVID-19 2020-11-22 Completed [facility] of PFIZER VACCINE 00:00:00 [facility] SARS-COV-2 COVID-19 2020-11-22 Completed [facility] of PFIZER VACCINE 00:00:00 [facility] SARS-COV-2 COVID-19 2020-11-22 Completed [facility] of PFIZER VACCINE 00:00:00 [facility] SARS-COV-2 COVID-19 2020-11-22 Completed [facility] PFIZER VACCINE 00:00:00 [facility] SARS-COV-2 COVID-19 2020-11-22 Completed [facility] of PFIZER VACCINE 00:00:00 [facility] SARS-COV-2 COVID-19 2020-11-22 Completed [facility] of PFIZER VACCINE 00:00:00 [facility] SARS-COV-2 COVID-19 2020-11-22 Completed [facility] of PFIZER VACCINE 00:00:00 [facility] SARS-COV-2 COVID-19 2020-11-22 Completed [facility] of PFIZER VACCINE 00:00:00 [facility] Influenza Virus 2020-05-27 Completed Universit [...] Completed University o f Polysaccharide, 00:00:00 [facility] ical PPSV23 (PNEUMOVAX) Branch TDAP (ADACEL) VACCINE 2019-08-10 Completed Uni versity of 00:00:00 [facility] TDAP 2019-08-10 Completed University of 00:00:00 [facility] Pneumococcal 2019-08-10 Completed University o f Polysaccharide, 00:00:00 [facility] ical PPSV23 (PNEUMOVAX) Branch TDAP (ADACEL) VACCINE 2019-08-10 Completed [facility] vers[facility] of 00:00:00 [facility] TDAP 2019-08-10 Completed University of 00:00:00 [facility] Pneumococcal 2019-08-10 Completed University o f Polysaccharide, 00:00:00 [facility] ical PPSV23 (PNEUMOVAX) Branch TDAP (ADACEL) VACCINE 2019-08-10 Completed [facility] vers[facility] of 00:00:00 [facility] TDAP 2019-08-10 Completed [facility] of 00:00:00 [facility] Pneumococcal 2019-08-10 Completed [facility] Polysaccharide, 00:00:00 [place] [facility] PPSV23 (PNEUMOVAX) Branch TDAP (ADACEL) VACCINE 2019-08-10 Completed [facility] vers[facility] of 00:00:00 [facility] TDAP 2019-08-10 Completed [facility] of 00:00:00 [facility] Pneumococcal 2019-08-10 Completed [facility] o f Polysaccharide, 00:00:00 [place] [facility] PPSV23 (PNEUMOVAX) Branch TDAP (ADACEL) VACCINE 2019-08-10 Completed [facility] versity of 00:00:00 [facility] TDAP 2019-08-10 Completed University of 00:00:00 [facility] Pneumococcal 2019-08-10 Completed [facility] o f Polysaccharide, 00:00:00 [place] [facility] PPSV23 (PNEUMOVAX) Branch TDAP (ADACEL) VACCINE 2019-08-10 Completed [facility] vers[facility] of 00:00:00 [facility] TDAP 2019-08-10 Completed [facility] of 00:00:00 [facility] Pneumococcal 2019-08-10 Completed [facility] o f Polysaccharide, 00:00:00 [place] [facility] PPSV23 (PNEUMOVAX) Branch TDAP (ADACEL) VACCINE 2019-08-10 Completed [facility] vers[facility] of 00:00:00 [facility] TDAP 2019-08-10 Completed University of 00:00:00 [facility] Pneumococcal 2019-08-10 Completed [facility] o f Polysaccharide, 00:00:00 [place] [facility] PPSV23 (PNEUMOVAX) Branch TDAP (ADACEL) VACCINE 2019-08-10 Completed [facility] of 00:00:00 [facility] TDAP 2019-08-10 Completed [facility] of 00:00:00 [facility] Pneumococcal 2019-08-10 Completed [facility] o f Polysaccharide, 00:00:00 [place] [facility] PPSV23 (PNEUMOVAX) Branch TDAP (ADACEL) VACCINE 2019-08-10 Completed [facility] versity of 00:00:00 [facility] TDAP 2019-08-10 Completed [facility] of 00:00:00 [facility] Pneumococcal 2019-08-10 Completed [facility] o f Polysaccharide, 00:00:00 [place] [facility] PPSV23 (PNEUMOVAX) Branch TDAP (ADACEL) VACCINE 2019-08-10 Completed [facility] versity of 00:00:00 [facility] TDAP 2019-08-10 Completed [facility] of 00:00:00 [facility] Pneumococcal 2019-08-10 Completed [facility] o f Polysaccharide, 00:00:00 [place] [facility] PPSV23 (PNEUMOVAX) Branch TDAP (ADACEL) VACCINE 2019-08-10 Completed [facility] versity of 00:00:00 [facility] TDAP 2019-08-10 Completed [facility] of 00:00:00 [facility] Pneumococcal 2019-08-10 Completed [facility] o f Polysaccharide, 00:00:00 [place] [facility] PPSV23 (PNEUMOVAX) Branch TDAP (ADACEL) VACCINE 2019-08-10 Completed [facility] vers[facility] of 00:00:00 [facility] TDAP 2019-08-10 Completed University of 00:00:00 [facility] Pneumococcal 2019-08-10 Completed [facility] o f Polysaccharide, 00:00:00 [place] [facility] PPSV23 (PNEUMOVAX) Branch TDAP (ADACEL) VACCINE 2019-08-10 Completed [facility] vers[facility] of 00:00:00 [facility] TDAP 2019-08-10 Completed University of 00:00:00 [facility] Pneumococcal 2019-08-10 Completed [facility] o f Polysaccharide, 00:00:00 [place] [facility] PPSV23 (PNEUMOVAX) Branch TDAP (ADACEL) VACCINE 2019-08-10 Completed [facility] vers[facility] of 00:00:00 [facility] TDAP 2019-08-10 Completed University of 00:00:00 [facility] Pneumococcal 2019-08-10 Completed [facility] o f Polysaccharide, 00:00:00 [place] [facility] PPSV23 (PNEUMOVAX) Branch TDAP (ADACEL) VACCINE 2019-08-10 Completed [facility] versity of 00:00:00 [facility] TDAP 2019-08-10 Completed [facility] of 00:00:00 [facility] Pneumococcal 2019-08-10 Completed [facility] o f Polysaccharide, 00:00:00 [place] [facility] PPSV23 (PNEUMOVAX) Branch TDAP (ADACEL) VACCINE 2019-08-10 Completed [facility] vers[facility] of 00:00:00 [facility] TDAP 2019-08-10 Completed [facility] of 00:00:00 [facility] Pneumococcal 2019-08-10 Completed [facility] o f Polysaccharide, 00:00:00 [place] [facility] PPSV23 (PNEUMOVAX) Branch TDAP (ADACEL) VACCINE 2019-08-10 Completed [facility] vers[facility] of 00:00:00 [facility] TDAP 2019-08-10 Completed University of 00:00:00 [facility] Pneumococcal 2019-08-10 Completed [facility] o f Polysaccharide, 00:00:00 [place] [facility] PPSV23 (PNEUMOVAX) Branch TDAP (ADACEL) VACCINE 2019-08-10 Completed [facility] vers[facility] of 00:00:00 [facility] TDAP 2019-08-10 Completed University of 00:00:00 [facility] Pneumococcal 2019-08-10 Completed [facility] o f Polysaccharide, 00:00:00 [place] [facility] PPSV23 (PNEUMOVAX) Branch TDAP (ADACEL) VACCINE 2019-08-10 Completed [facility] versity of 00:00:00 [facility] TDAP 2019-08-10 Completed [facility] of 00:00:00 [facility] Pneumococcal 2019-08-10 Completed [facility] o f Polysaccharide, 00:00:00 [place] [facility] PPSV23 (PNEUMOVAX) Branch TDAP (ADACEL) VACCINE 2019-08-10 Completed [facility] versity of 00:00:00 [facility] TDAP 2019-08-10 Completed University of 00:00:00 [facility] Pneumococcal 2019-08-10 Completed [facility] o f Polysaccharide, 00:00:00 [place] [facility] PPSV23 (PNEUMOVAX) Branch TDAP (ADACEL) VACCINE 2019-08-10 Completed [facility] vers[facility] of 00:00:00 [facility] TDAP 2019-08-10 Completed University of 00:00:00 [facility] Pneumococcal 2019-08-10 Completed [facility] o f Polysaccharide, 00:00:00 [place] [facility] PPSV23 (PNEUMOVAX) Branch TDAP (ADACEL) VACCINE 2019-08-10 Completed [facility] versity of 00:00:00 [facility] TDAP 2019-08-10 Completed [facility] of 00:00:00 [facility] Pneumococcal 2019-08-10 Completed [facility] o f Polysaccharide, 00:00:00 [place] [facility] PPSV23 (PNEUMOVAX) Branch TDAP (ADACEL) VACCINE 2019-08-10 Completed [facility] vers[facility] of 00:00:00 [facility] TDAP 2019-08-10 Completed [facility] of 00:00:00 [facility] Pneumococcal 2019-08-10 Completed [facility] o f Polysaccharide, 00:00:00 [place] [facility] PPSV23 (PNEUMOVAX) Branch TDAP (ADACEL) VACCINE 2019-08-10 Completed [facility] vers[facility] of 00:00:00 [facility] TDAP 2019-08-10 Completed [facility] of 00:00:00 [facility] Pneumococcal 2019-08-10 Completed [facility] o f Polysaccharide, 00:00:00 [place] [facility] PPSV23 (PNEUMOVAX) Branch TDAP (ADACEL) VACCINE 2019-08-10 Completed [facility] versity of 00:00:00 [facility] TDAP 2019-08-10 Completed [facility] of 00:00:00 [facility] Pneumococcal 2019-08-10 Completed [facility] o f Polysaccharide, 00:00:00 [place] [facility] PPSV23 (PNEUMOVAX) Branch TDAP (ADACEL) VACCINE 2019-08-10 Completed [facility] vers[facility] of 00:00:00 [facility] TDAP 2019-08-10 Completed University of 00:00:00 [facility] Pneumococcal 2019-08-10 Completed [facility] o f Polysaccharide, 00:00:00 [place] [facility] PPSV23 (PNEUMOVAX) Branch TDAP (ADACEL) VACCINE 2019-08-10 Completed Uni versity of 00:00:00 [facility] TDAP 2019-08-10 Completed [facility] of 00:00:00 [facility] Pneumococcal 2019-08-10 Completed [facility] o f Polysaccharide, 00:00:00 [place] [facility] PPSV23 (PNEUMOVAX) Branch TDAP (ADACEL) VACCINE 2019-08-10 Completed [facility] versity of 00:00:00 [facility] TDAP 2019-08-10 Completed [facility] of 00:00:00 [facility] Pneumococcal 2019-08-10 Completed [facility] o f Polysaccharide, 00:00:00 [place] [facility] PPSV23 (PNEUMOVAX) Branch TDAP (ADACEL) VACCINE 2019-08-10 Completed Uni versity of 00:00:00 [facility] TDAP 2019-08-10 Completed University of 00:00:00 [facility] Pneumococcal 2019-08-10 Completed [facility] o f Polysaccharide, 00:00:00 [place] [facility] PPSV23 (PNEUMOVAX) Branch TDAP (ADACEL) VACCINE 2019-08-10 Completed Uni versity of 00:00:00 [facility] TDAP 2019-08-10 Completed University of 00:00:00 [facility] Pneumococcal 2019-08-10 Completed [facility] o f Polysaccharide, 00:00:00 [place] [facility] PPSV23 (PNEUMOVAX) Branch TDAP (ADACEL) VACCINE 2019-08-10 Completed Uni versity of 00:00:00 [facility] TDAP 2019-08-10 Completed [facility] of 00:00:00 [facility] Pneumococcal 2019-08-10 Completed [facility] o f Polysaccharide, 00:00:00 [place] [facility] PPSV23 (PNEUMOVAX) Branch TDAP (ADACEL) VACCINE 2019-08-10 Completed Uni versity of 00:00:00 [facility] TDAP 2019-08-10 Completed [facility] of 00:00:00 [facility] Pneumococcal 2019-08-10 Completed [facility] o f Polysaccharide, 00:00:00 [place] [facility] PPSV23 (PNEUMOVAX) Branch TDAP (ADACEL) VACCINE 2019-08-10 Completed Uni versity of 00:00:00 [facility] TDAP 2019-08-10 Completed [facility] of 00:00:00 [facility] Pneumococcal 2019-08-10 Completed [facility] o f Polysaccharide, 00:00:00 [place] [facility] PPSV23 (PNEUMOVAX) Branch TDAP (ADACEL) VACCINE 2019-08-10 Completed [facility] versity of 00:00:00 [facility] TDAP 2019-08-10 Completed [facility] of 00:00:00 [facility] Pneumococcal 2019-08-10 Completed [facility] o f Polysaccharide, 00:00:00 [place] [facility] PPSV23 (PNEUMOVAX) Branch TDAP (ADACEL) VACCINE 2019-08-10 Completed Uni versity of 00:00:00 [facility] TDAP 2019-08-10 Completed [facility] of 00:00:00 [facility] Pneumococcal 2019-08-10 Completed [facility] o f Polysaccharide, 00:00:00 [place] [facility] PPSV23 (PNEUMOVAX) Branch TDAP (ADACEL) VACCINE 2019-08-10 Completed [facility] vers[facility] of 00:00:00 [facility] TDAP 2019-08-10 Completed [facility] of 00:00:00 [facility] Pneumococcal 2019-08-10 Completed [facility] o f Polysaccharide, 00:00:00 [place] [facility] PPSV23 (PNEUMOVAX) Branch TDAP (ADACEL) VACCINE 2019-08-10 Completed [facility] versity of 00:00:00 [facility] TDAP 2019-08-10 Completed [facility] of 00:00:00 [facility] Pneumococcal 2019-08-10 Completed [facility] o f Polysaccharide, 00:00:00 [place] [facility] PPSV23 (PNEUMOVAX) Branch TDAP (ADACEL) VACCINE 2019-08-10 Completed [facility] vers[facility] of 00:00:00 [facility] TDAP 2019-08-10 Completed [facility] of 00:00:00 [facility] Pneumococcal 2019-08-10 Completed [facility] o f Polysaccharide, 00:00:00 [place] [facility] PPSV23 (PNEUMOVAX) Branch TDAP (ADACEL) VACCINE 2019-08-10 Completed Uni versity of 00:00:00 [facility] TDAP 2019-08-10 Completed [facility] of 00:00:00 [facility] Pneumococcal 2019-08-10 Completed [facility] o f Polysaccharide, 00:00:00 [place] [facility] PPSV23 (PNEUMOVAX) Branch TDAP (ADACEL) VACCINE 2019-08-10 Completed [facility] versity of 00:00:00 [facility] TDAP 2019-08-10 Completed [facility] of 00:00:00 [facility] Pneumococcal 2019-08-10 Completed [facility] o f Polysaccharide, 00:00:00 [place] [facility] PPSV23 (PNEUMOVAX) Branch TDAP (ADACEL) VACCINE 2019-08-10 Completed [facility] vers[facility] of 00:00:00 [facility] TDAP 2019-08-10 Completed [facility] of 00:00:00 [facility] Pneumococcal 2019-08-10 Completed [facility] o f Polysaccharide, 00:00:00 [place] [facility] PPSV23 (PNEUMOVAX) Branch TDAP (ADACEL) VACCINE 2019-08-10 Completed [facility] versity of 00:00:00 [facility] TDAP 2019-08-10 Completed [facility] of 00:00:00 [facility] Pneumococcal 2019-08-10 Completed [facility] o f Polysaccharide, 00:00:00 [place] [facility] PPSV23 (PNEUMOVAX) Branch TDAP (ADACEL) VACCINE 2019-08-10 Completed Uni versity of 00:00:00 [facility] TDAP 2019-08-10 Completed [facility] of 00:00:00 [facility] Pneumococcal 2019-08-10 Completed [facility] o f Polysaccharide, 00:00:00 [place] [facility] PPSV23 (PNEUMOVAX) Branch TDAP (ADACEL) VACCINE 2019-08-10 Completed [facility] vers[facility] of 00:00:00 [facility] TDAP 2019-08-10 Completed [facility] of 00:00:00 [facility] Pneumococcal 2019-08-10 Completed [facility] o f Polysaccharide, 00:00:00 [place] [facility] PPSV23 (PNEUMOVAX) Branch TDAP (ADACEL) VACCINE 2019-08-10 Completed [facility] versity of 00:00:00 [facility] TDAP 2019-08-10 Completed [facility] of 00:00:00 [facility] Pneumococcal 2019-08-10 Completed [facility] o f Polysaccharide, 00:00:00 [place] [facility] PPSV23 (PNEUMOVAX) Branch TDAP (ADACEL) VACCINE 2019-08-10 Completed [facility] versity of 00:00:00 [facility] TDAP 2019-08-10 Completed [facility] of 00:00:00 [facility] Pneumococcal 2019-08-10 Completed [facility] o f Polysaccharide, 00:00:00 [place] [facility] PPSV23 (PNEUMOVAX) Branch TDAP (ADACEL) VACCINE 2019-08-10 Completed [facility] vers[facility] 00:00:00 [facility] TDAP 2019-08-10 Completed [facility] of 00:00:00 [facility] Pneumococcal 2019-08-10 Completed [facility] o f Polysaccharide, 00:00:00 [place] [facility] PPSV23 (PNEUMOVAX) Branch TDAP (ADACEL) VACCINE 2019-08-10 Completed [facility] vers[facility] of 00:00:00 [facility] TDAP 2019-08-10 Completed [facility] of 00:00:00 [facility] Pneumococcal 2019-08-10 Completed [facility] o f Polysaccharide, 00:00:00 [place] [facility] PPSV23 (PNEUMOVAX) Branch TDAP (ADACEL) VACCINE 2019-08-10 Completed [facility] vers[facility] of 00:00:00 [facility] TDAP 2019-08-10 Completed [facility] of 00:00:00 [facility] Pneumococcal 2019-08-10 Completed [facility] o f Polysaccharide, 00:00:00 [place] [facility] PPSV23 (PNEUMOVAX) Branch TDAP (ADACEL) VACCINE 2019-08-10 Completed [facility] vers[facility] of 00:00:00 [facility] TDAP 2019-08-10 Completed [facility] of 00:00:00 [facility] Pneumococcal 2019-08-10 Completed [facility] o f Polysaccharide, 00:00:00 [place] [facility] PPSV23 (PNEUMOVAX) Branch TDAP (ADACEL) VACCINE 2019-08-10 Completed [facility] vers[facility] of 00:00:00 [facility] TDAP 2019-08-10 Completed [facility] of 00:00:00 [facility] Pneumococcal 2019-08-10 Completed [facility] o f Polysaccharide, 00:00:00 [place] [facility] PPSV23 (PNEUMOVAX) Branch TDAP (ADACEL) VACCINE 2019-08-10 Completed [facility] vers[facility] of 00:00:00 [facility] TDAP 2019-08-10 Completed [facility] of 00:00:00 [facility] Pneumococcal 2019-08-10 Completed [facility] o f Polysaccharide, 00:00:00 [place] [facility] PPSV23 (PNEUMOVAX) Branch TDAP (ADACEL) VACCINE 2019-08-10 Completed [facility] versity of 00:00:00 [facility] TDAP 2019-08-10 Completed [facility] of 00:00:00 [facility] Pneumococcal 2019-08-10 Completed [facility] o f Polysaccharide, 00:00:00 [place] [facility] PPSV23 (PNEUMOVAX) Branch TDAP (ADACEL) VACCINE 2019-08-10 Completed [facility] vers[facility] of 00:00:00 [facility] TDAP 2019-08-10 Completed [facility] of 00:00:00 [facility] Pneumococcal 2019-08-10 Completed [facility] o f Polysaccharide, 00:00:00 [place] [facility] PPSV23 (PNEUMOVAX) Branch TDAP (ADACEL) VACCINE 2019-08-10 Completed [facility] vers[facility] of 00:00:00 [facility] TDAP 2019-08-10 Completed [facility] of 00:00:00 [facility] Pneumococcal 2019-08-10 Completed [facility] o f Polysaccharide, 00:00:00 [place] [facility] PPSV23 (PNEUMOVAX) Branch TDAP (ADACEL) VACCINE 2019-08-10 Completed [facility] vers[facility] of 00:00:00 [facility] TDAP 2019-08-10 Completed [facility] of 00:00:00 [facility] Pneumococcal 2019-08-10 Completed [facility] o f Polysaccharide, 00:00:00 [place] [facility] PPSV23 (PNEUMOVAX) Branch TDAP (ADACEL) VACCINE 2019-08-10 Completed [facility] versity of 00:00:00 [facility] TDAP 2019-08-10 Completed [facility] of 00:00:00 [facility] Pneumococcal 2019-08-10 Completed [facility] o f Polysaccharide, 00:00:00 [place] [facility] PPSV23 (PNEUMOVAX) Branch TDAP (ADACEL) VACCINE 2019-08-10 Completed [facility] vers[facility] of 00:00:00 [facility] TDAP 2019-08-10 Completed [facility] of 00:00:00 [facility] Pneumococcal 2019-08-10 Completed [facility] o f Polysaccharide, 00:00:00 [place] [facility] PPSV23 (PNEUMOVAX) Branch TDAP (ADACEL) VACCINE 2019-08-10 Completed [facility] vers[facility] of 00:00:00 [facility] TDAP 2019-08-10 Completed [facility] of 00:00:00 [facility] Pneumococcal 2019-08-10 Completed [facility] o f Polysaccharide, 00:00:00 [place] [facility] PPSV23 (PNEUMOVAX) Branch TDAP (ADACEL) VACCINE 2019-08-10 Completed [facility] vers[facility] of 00:00:00 [facility] TDAP 2019-08-10 Completed [facility] of 00:00:00 [facility] Pneumococcal 2019-08-10 Completed [facility] o f Polysaccharide, 00:00:00 [place] [facility] PPSV23 (PNEUMOVAX) Branch TDAP (ADACEL) VACCINE 2019-08-10 Completed [facility] vers[facility] of 00:00:00 [facility] TDAP 2019-08-10 Completed [facility] of 00:00:00 [facility] Pneumococcal 2019-08-10 Completed [facility] o f Polysaccharide, 00:00:00 [place] [facility] PPSV23 (PNEUMOVAX) Branch TDAP (ADACEL) VACCINE 2019-08-10 Completed [facility] 00:00:00 [facility] TDAP 2019-08-10 Completed [facility] of 00:00:00 [facility] Pneumococcal 2019-08-10 Completed [facility] o f Polysaccharide, 00:00:00 [place] [facility] PPSV23 (PNEUMOVAX) Branch TDAP (ADACEL) VACCINE 2019-08-10 Completed [facility] vers[facility] 00:00:00 [facility] TDAP 2019-08-10 Completed [facility] of 00:00:00 [facility] Pneumococcal 2019-08-10 Completed [facility] o f Polysaccharide, 00:00:00 [place] [facility] PPSV23 (PNEUMOVAX) Branch TDAP (ADACEL) VACCINE 2019-08-10 Completed [facility] vers[facility] of 00:00:00 [facility] TDAP 2019-08-10 Completed [facility] of 00:00:00 [facility] Pneumococcal 2019-08-10 Completed [facility] o f Polysaccharide, 00:00:00 [place] [facility] PPSV23 (PNEUMOVAX) Branch TDAP (ADACEL) VACCINE 2019-08-10 Completed [facility] vers[facility] 00:00:00 [facility] TDAP 2019-08-10 Completed [facility] of 00:00:00 [facility] Pneumococcal 2019-08-10 Completed [facility] o f Polysaccharide, 00:00:00 [place] [facility] PPSV23 (PNEUMOVAX) Branch TDAP (ADACEL) VACCINE 2019-08-10 Completed [facility] 00:00:00 [facility] TDAP 2019-08-10 Completed [facility] 00:00:00 [facility] Pneumococcal 2019-08-10 Completed University o f Polysaccharide, 00:00:00 [place] [facility] PPSV23 (PNEUMOVAX) Branch TDAP (ADACEL) VACCINE 2019-08-10 Completed [facility] 00:00:00 [facility] TDAP 2019-08-10 Completed [facility] of 00:00:00 [facility] Pneumococcal 2019-08-10 Completed University o f Polysaccharide, 00:00:00 [place] [facility] PPSV23 (PNEUMOVAX) Branch TDAP (ADACEL) VACCINE 2019-08-10 Completed [facility] vers[facility] of 00:00:00 [facility] TDAP 2019-08-10 Completed [facility] 00:00:00 [facility] Pneumococcal 2019-08-10 Completed University o f Polysaccharide, 00:00:00 [place] [facility] PPSV23 (PNEUMOVAX) Branch TDAP (ADACEL) VACCINE 2019-08-10 Completed [facility] 00:00:00 [facility] TDAP 2019-08-10 Completed [facility] 00:00:00 [facility] Pneumococcal 2019-08-10 Completed [facility] o f Polysaccharide, 00:00:00 [place] [facility] PPSV23 (PNEUMOVAX) Branch TDAP (ADACEL) VACCINE 2019-08-10 Completed [facility] vers[facility] of 00:00:00 [facility] TDAP 2019-08-10 Completed [facility] of 00:00:00 [facility] Pneumococcal 2019-08-10 Completed [facility] o f Polysaccharide, 00:00:00 [place] [facility] PPSV23 (PNEUMOVAX) Branch TDAP (ADACEL) VACCINE 2019-08-10 Completed [facility] vers[facility] 00:00:00 [facility] TDAP 2019-08-10 Completed [facility] of 00:00:00 [facility] Pneumococcal 2019-08-10 Completed [facility] o f Polysaccharide, 00:00:00 [place] [facility] PPSV23 (PNEUMOVAX) Branch TDAP (ADACEL) VACCINE 2019-08-10 Completed [facility] 00:00:00 [facility] TDAP 2019-08-10 Completed [facility] 00:00:00 [facility] Pneumococcal 2019-08-10 Completed [facility] o f Polysaccharide, 00:00:00 [place] [facility] PPSV23 (PNEUMOVAX) Branch TDAP (ADACEL) VACCINE 2019-08-10 Completed [facility] vers[facility] of 00:00:00 [facility] TDAP 2019-08-10 Completed [facility] of 00:00:00 [facility] Pneumococcal 2019-08-10 Completed [facility] o f Polysaccharide, 00:00:00 [place] [facility] PPSV23 (PNEUMOVAX) Branch TDAP (ADACEL) VACCINE 2019-08-10 Completed [facility] 00:00:00 [facility] TDAP 2019-08-10 Completed [facility] 00:00:00 [facility] Pneumococcal 2019-08-10 Completed [facility] o f Polysaccharide, 00:00:00 [place] [facility] PPSV23 (PNEUMOVAX) Branch TDAP (ADACEL) VACCINE 2019-08-10 Completed [facility] vers[facility] of 00:00:00 [facility] TDAP 2019-08-10 Completed [facility] of 00:00:00 [facility] Pneumococcal 2019-08-10 Completed [facility] o f Polysaccharide, 00:00:00 [place] [facility] PPSV23 (PNEUMOVAX) Branch TDAP (ADACEL) VACCINE 2019-08-10 Completed [facility] vers[facility] of 00:00:00 [facility] TDAP 2019-08-10 Completed [facility] of 00:00:00 [facility] Pneumococcal 2019-08-10 Completed [facility] o f Polysaccharide, 00:00:00 [place] [facility] PPSV23 (PNEUMOVAX) Branch TDAP (ADACEL) VACCINE 2019-08-10 Completed [facility] vers[facility] of 00:00:00 [facility] TDAP 2019-08-10 Completed [facility] of 00:00:00 [facility] Pneumococcal 2019-08-10 Completed [facility] o f Polysaccharide, 00:00:00 [place] [facility] PPSV23 (PNEUMOVAX) Branch TDAP (ADACEL) VACCINE 2019-08-10 Completed Uni vers[facility] of 00:00:00 [facility] TDAP 2019-08-10 Completed [facility] of 00:00:00 [facility] Pneumococcal 2019-08-10 Completed [facility] o f Polysaccharide, 00:00:00 [place] [facility] PPSV23 (PNEUMOVAX) Branch TDAP (ADACEL) VACCINE 2019-08-10 Completed [facility] vers[facility] 00:00:00 [facility] TDAP 2019-08-10 Completed [facility] of 00:00:00 [facility] Pneumococcal 2019-08-10 Completed [facility] o f Polysaccharide, 00:00:00 [place] [facility] PPSV23 (PNEUMOVAX) Branch TDAP (ADACEL) VACCINE 2019-08-10 Completed Uni vers[facility] of 00:00:00 [facility] TDAP 2019-08-10 Completed [facility] of 00:00:00 [facility] Pneumococcal 2019-08-10 Completed [facility] o f Polysaccharide, 00:00:00 [place] [facility] PPSV23 (PNEUMOVAX) Branch TDAP (ADACEL) VACCINE 2019-08-10 Completed [facility] vers[facility] 00:00:00 [facility] TDAP 2019-08-10 Completed [facility] of 00:00:00 [facility] Pneumococcal 2019-08-10 Completed University o f Polysaccharide, 00:00:00 [place] [facility] PPSV23 (PNEUMOVAX) Branch TDAP (ADACEL) VACCINE 2019-08-10 Completed Uni versity of 00:00:00 [facility] TDAP 2019-08-10 Completed [facility] of 00:00:00 [facility] Pneumococcal 2019-08-10 Completed University o f Polysaccharide, 00:00:00 [facility] ical PPSV23 (PNEUMOVAX) Branch TDAP (ADACEL) VACCINE 2019-08-10 Completed Uni versity of 00:00:00 [facility] TDAP 2019-08-10 Completed [facility] of 00:00:00 [facility] Pneumococcal 2019-08-10 Completed [facility] o f Polysaccharide, 00:00:00 [place] [facility] PPSV23 (PNEUMOVAX) Branch TDAP (ADACEL) VACCINE 2019-08-10 Completed [facility] vers[facility] of 00:00:00 [facility] TDAP 2019-08-10 Completed [facility] of 00:00:00 [facility] Pneumococcal 2019-08-10 Completed [facility] o f Polysaccharide, 00:00:00 [place] [facility] PPSV23 (PNEUMOVAX) Branch TDAP (ADACEL) VACCINE 2019-08-10 Completed [facility] vers[facility] of 00:00:00 [facility] TDAP 2019-08-10 Completed [facility] of 00:00:00 [facility] Pneumococcal 2019-08-10 Completed [facility] o f Polysaccharide, 00:00:00 [place] [facility] PPSV23 (PNEUMOVAX) Branch TDAP (ADACEL) VACCINE 2019-08-10 Completed [facility] of 00:00:00 [facility] TDAP 2019-08-10 Completed [facility] 00:00:00 [facility] Pneumococcal 2019-08-10 Completed [facility] o f Polysaccharide, 00:00:00 [place] [facility] PPSV23 (PNEUMOVAX) Branch TDAP (ADACEL) VACCINE 2019-08-10 Completed [facility] versity of 00:00:00 [facility] TDAP 2019-08-10 Completed [facility] of 00:00:00 [facility] Pneumococcal 2019-08-10 Completed [facility] o f Polysaccharide, 00:00:00 [place] [facility] PPSV23 (PNEUMOVAX) Branch TDAP (ADACEL) VACCINE 2019-08-10 Completed [facility] vers[facility] of 00:00:00 [facility] TDAP 2019-08-10 Completed [facility] of 00:00:00 [facility] Pneumococcal 2019-08-10 Completed [facility] o f Polysaccharide, 00:00:00 [place] [facility] PPSV23 (PNEUMOVAX) Branch TDAP (ADACEL) VACCINE 2019-08-10 Completed [facility] vers[facility] of 00:00:00 [facility] TDAP 2019-08-10 Completed [facility] of 00:00:00 [facility] Pneumococcal 2019-08-10 Completed [facility] o f Polysaccharide, 00:00:00 [place] [facility] PPSV23 (PNEUMOVAX) Branch TDAP (ADACEL) VACCINE 2019-08-10 Completed [facility] of 00:00:00 [facility] TDAP 2019-08-10 Completed [facility] 00:00:00 [facility] Pneumococcal 2019-08-10 Completed [facility] o f Polysaccharide, 00:00:00 [place] [facility] PPSV23 (PNEUMOVAX) Branch TDAP (ADACEL) VACCINE 2019-08-10 Completed [facility] vers[facility] of 00:00:00 [facility] TDAP 2019-08-10 Completed [facility] of 00:00:00 [facility] Pneumococcal 2019-08-10 Completed [facility] o f Polysaccharide, 00:00:00 [place] [facility] PPSV23 (PNEUMOVAX) Branch TDAP (ADACEL) VACCINE 2019-08-10 Completed [facility] vers[facility] of 00:00:00 [facility] TDAP 2019-08-10 Completed [facility] 00:00:00 [facility] Pneumococcal 2019-08-10 Completed University o f Polysaccharide, 00:00:00 [place] [facility] PPSV23 (PNEUMOVAX) Branch TDAP (ADACEL) VACCINE 2019-08-10 Completed Uni versity of 00:00:00 [facility] TDAP 2019-08-10 Completed [facility] of 00:00:00 [facility] Pneumococcal 2019-08-10 Completed [facility] o f Polysaccharide, 00:00:00 [place] [facility] PPSV23 (PNEUMOVAX) Branch TDAP (ADACEL) VACCINE 2019-08-10 Completed Uni versity of 00:00:00 [facility] TDAP 2019-08-10 Completed [facility] of 00:00:00 [facility] Pneumococcal 2019-08-10 Completed University o f Polysaccharide, 00:00:00 [place] [facility] PPSV23 (PNEUMOVAX) Branch TDAP (ADACEL) VACCINE 2019-08-10 Completed [facility] vers[facility] of 00:00:00 [facility] TDAP 2019-08-10 Completed [facility] of 00:00:00 [facility] Pneumococcal 2019-08-10 Completed University o f Polysaccharide, 00:00:00 [place] [facility] PPSV23 (PNEUMOVAX) Branch TDAP (ADACEL) VACCINE 2019-08-10 Completed Uni vers[facility] of 00:00:00 [facility] TDAP 2019-08-10 Completed [facility] of 00:00:00 [facility] Pneumococcal 2019-08-10 Completed University o f Polysaccharide, 00:00:00 [place] [facility] PPSV23 (PNEUMOVAX) Branch TDAP (ADACEL) VACCINE 2019-08-10 Completed Uni vers[facility] of 00:00:00 [facility] TDAP 2019-08-10 Completed [facility] of 00:00:00 [facility] Pneumococcal 2019-08-10 Completed [facility] o f Polysaccharide, 00:00:00 [place] [facility] PPSV23 (PNEUMOVAX) Branch TDAP (ADACEL) VACCINE 2019-08-10 Completed Uni versity of 00:00:00 [facility] TDAP 2019-08-10 Completed [facility] of 00:00:00 [facility] Pneumococcal 2019-08-10 Completed [facility] o f Polysaccharide, 00:00:00 [place] [facility] PPSV23 (PNEUMOVAX) Branch TDAP (ADACEL) VACCINE 2019-08-10 Completed Uni versity of 00:00:00 [facility] TDAP 2019-08-10 Completed [facility] of 00:00:00 [facility] Pneumococcal 2019-08-10 Completed University o f Polysaccharide, 00:00:00 [facility] ica PPSV23 (PNEUMOVAX) Branch TDAP (ADACEL) VACCINE 2019-08-10 Completed Uni versity of 00:00:00 [facility] TDAP 2019-08-10 Completed [facility] of 00:00:00 [facility] Influenza Virus 2019-07-04 Completed Universit y of Vaccine 00:00:00 [facility] Influenza Virus 2019-07-04 Completed Universit y of Vaccine Recomb Quad 00:00:00 [facility], Preserv and ABX Branc h Free 18-64 YRS Influenza Virus 2019-07-04 Completed Universit y of Vaccine 00:00:00 [facility] Influenza Virus 2019-07-04 Completed Universit y of Vaccine Recomb Quad 00:00:00 [place] [facility], Preserv and ABX Branc h Free 18-64 YRS Influenza Virus 2019-07-04 Completed Universit y of Vaccine 00:00:00 [facility] Influenza Virus 2019-07-04 Completed Universit y of Vaccine Recomb Quad 00:00:00 [place] [facility], Preserv and ABX Branc h Free 18-64 YRS Influenza Virus 2019-07-04 Completed Universit y of Vaccine 00:00:00 [facility] Influenza Virus 2019-07-04 Completed Universit y of Vaccine Recomb Quad 00:00:00 [place] [facility], Preserv and ABX Branc h Free 18-64 YRS Influenza Virus 2019-07-04 Completed Universit y of Vaccine 00:00:00 [facility] Influenza Virus 2019-07-04 Completed Universit y of Vaccine Recomb Quad 00:00:00 [place] [facility], Preserv and ABX Branc h Free 18-64 YRS Influenza Virus 2019-07-04 Completed Universit y of Vaccine 00:00:00 [facility] Influenza Virus 2019-07-04 Completed Universit y of Vaccine Recomb Quad 00:00:00 [place] [facility], Preserv and ABX Branc h Free 18-64 YRS Influenza Virus 2019-07-04 Completed Universit y of Vaccine 00:00:00 [facility] Influenza Virus 2019-07-04 Completed Universit y of Vaccine Recomb Quad 00:00:00 [place] [facility], Preserv and ABX Branc h Free 18-64 YRS Influenza Virus 2019-07-04 Completed Universit y of Vaccine 00:00:00 [facility] Influenza Virus 2019-07-04 Completed Universit y of Vaccine Recomb Quad 00:00:00 [place] [facility], Preserv and ABX Branc h Free 18-64 YRS Influenza Virus 2019-07-04 Completed Universit y of Vaccine 00:00:00 [facility] Influenza Virus 2019-07-04 Completed Universit y of Vaccine Recomb Quad 00:00:00 [place] [facility], Preserv and ABX Branc h Free 18-64 YRS Influenza Virus 2019-07-04 Completed Universit y of Vaccine 00:00:00 [facility] Influenza Virus 2019-07-04 Completed Universit y of Vaccine Recomb Quad 00:00:00 [place] [facility], Preserv and ABX Branc h Free 18-64 YRS Influenza Virus 2019-07-04 Completed Universit y of Vaccine 00:00:00 [facility] Influenza Virus 2019-07-04 Completed Universit y of Vaccine Recomb Quad 00:00:00 [place] [facility], Preserv and ABX Branc h Free 18-64 YRS Influenza Virus 2019-07-04 Completed Universit y of Vaccine 00:00:00 [facility] Influenza Virus 2019-07-04 Completed Universit y of Vaccine Recomb Quad 00:00:00 [place] [facility], Preserv and ABX Branc h Free 18-64 YRS Influenza Virus 2019-07-04 Completed Universit y of Vaccine 00:00:00 [facility] Influenza Virus 2019-07-04 Completed Universit y of Vaccine Recomb Quad 00:00:00 [place] [facility], Preserv and ABX Branc h Free 18-64 YRS Influenza Virus 2019-07-04 Completed Universit y of Vaccine 00:00:00 [facility] Influenza Virus 2019-07-04 Completed Universit y of Vaccine Recomb Quad 00:00:00 [place] [facility], Preserv and ABX Branc h Free 18-64 YRS Influenza Virus 2019-07-04 Completed Universit y of Vaccine 00:00:00 [facility] Influenza Virus 2019-07-04 Completed [facility]it y of Vaccine Recomb Quad 00:00:00 [place] [facility], Preserv and ABX Branc h Free 18-64 YRS Influenza Virus 2019-07-04 Completed Universit y of Vaccine 00:00:00 [facility] Influenza Virus 2019-07-04 Completed Universit y of Vaccine Recomb Quad 00:00:00 [place] [facility], Preserv and ABX Branc h Free 18-64 YRS Influenza Virus 2019-07-04 Completed Universit y of Vaccine 00:00:00 [facility] Influenza Virus 2019-07-04 Completed Universit y of Vaccine Recomb Quad 00:00:00 [place] [facility], Preserv and ABX Branc h Free 18-64 YRS Influenza Virus 2019-07-04 Completed Universit y of Vaccine 00:00:00 [facility] Influenza Virus 2019-07-04 Completed Universit y of Vaccine Recomb Quad 00:00:00 [place] [facility], Preserv and ABX Branc h Free 18-64 YRS Influenza Virus 2019-07-04 Completed Universit y of Vaccine 00:00:00 [facility] Influenza Virus 2019-07-04 Completed Universit y of Vaccine Recomb Quad 00:00:00 [place] [facility], Preserv and ABX Branc h Free 18-64 YRS Influenza Virus 2019-07-04 Completed Universit y of Vaccine 00:00:00 [facility] Influenza Virus 2019-07-04 Completed [facility]it y of Vaccine Recomb Quad 00:00:00 [place] [facility], Preserv and ABX Branc h Free 18-64 YRS Influenza Virus 2019-07-04 Completed Universit y of Vaccine 00:00:00 [facility] Influenza Virus 2019-07-04 Completed Universit y of Vaccine Recomb Quad 00:00:00 [place] [facility], Preserv and ABX Branc h Free 18-64 YRS Influenza Virus 2019-07-04 Completed Universit y of Vaccine 00:00:00 [facility] Influenza Virus 2019-07-04 Completed Universit y of Vaccine Recomb Quad 00:00:00 [place] [facility], Preserv and ABX Branc h Free 18-64 YRS Influenza Virus 2019-07-04 Completed Universit y of Vaccine 00:00:00 [facility] Influenza Virus 2019-07-04 Completed [facility]it y of Vaccine Recomb Quad 00:00:00 [place] [facility], Preserv and ABX Branc h Free 18-64 YRS Influenza Virus 2019-07-04 Completed Universit y of Vaccine 00:00:00 [facility] Influenza Virus 2019-07-04 Completed [facility]it y of Vaccine Recomb Quad 00:00:00 [place] [facility], Preserv and ABX Branc h Free 18-64 YRS Influenza Virus 2019-07-04 Completed Universit y of Vaccine 00:00:00 [facility] Influenza Virus 2019-07-04 Completed [facility]it y of Vaccine Recomb Quad 00:00:00 [place] [facility], Preserv and ABX Branc h Free 18-64 YRS Influenza Virus 2019-07-04 Completed Universit y of Vaccine 00:00:00 [facility] Influenza Virus 2019-07-04 Completed [facility]it y of Vaccine Recomb Quad 00:00:00 [place] [facility], Preserv and ABX Branc h Free 18-64 YRS Influenza Virus 2019-07-04 Completed Universit y of Vaccine 00:00:00 [facility] Influenza Virus 2019-07-04 Completed [facility]it y of Vaccine Recomb Quad 00:00:00 [place] [facility], Preserv and ABX Branc h Free 18-64 YRS Influenza Virus 2019-07-04 Completed Universit y of Vaccine 00:00:00 [facility] Influenza Virus 2019-07-04 Completed [facility]it y of Vaccine Recomb Quad 00:00:00 [place] [facility], Preserv and ABX Branc h Free 18-64 YRS Influenza Virus 2019-07-04 Completed Universit y of Vaccine 00:00:00 [facility] Influenza Virus 2019-07-04 Completed [facility]it y of Vaccine Recomb Quad 00:00:00 [place] [facility], Preserv and ABX Branc h Free 18-64 YRS Influenza Virus 2019-07-04 Completed Universit y of Vaccine 00:00:00 [facility] Influenza Virus 2019-07-04 Completed [facility]it y of Vaccine Recomb Quad 00:00:00 [place] [facility], Preserv and ABX Branc h Free 18-64 YRS Influenza Virus 2019-07-04 Completed Universit y of Vaccine 00:00:00 [facility] Influenza Virus 2019-07-04 Completed [facility]it y of Vaccine Recomb Quad 00:00:00 [place] [facility], Preserv and ABX Branc h Free 18-64 YRS Influenza Virus 2019-07-04 Completed [facility]it y of Vaccine 00:00:00 [facility] Influenza Virus 2019-07-04 Completed [facility]it y of Vaccine Recomb Quad 00:00:00 [place] [facility], Preserv and ABX Branc h Free 18-64 YRS Influenza Virus 2019-07-04 Completed Universit y of Vaccine 00:00:00 [facility] Influenza Virus 2019-07-04 Completed [facility]it y of Vaccine Recomb Quad 00:00:00 [place] [facility], Preserv and ABX Branc h Free 18-64 YRS Influenza Virus 2019-07-04 Completed Universit y of Vaccine 00:00:00 [facility] Influenza Virus 2019-07-04 Completed [facility]it y of Vaccine Recomb Quad 00:00:00 [place] [facility], Preserv and ABX Branc h Free 18-64 YRS Influenza Virus 2019-07-04 Completed Universit y of Vaccine 00:00:00 [facility] Influenza Virus 2019-07-04 Completed [facility]it y of Vaccine Recomb Quad 00:00:00 [place] [facility], Preserv and ABX Branc h Free 18-64 YRS Influenza Virus 2019-07-04 Completed [facility]it y of Vaccine 00:00:00 [facility] Influenza Virus 2019-07-04 Completed [facility]it y of Vaccine Recomb Quad 00:00:00 [place] [facility], Preserv and ABX Branc h Free 18-64 YRS Influenza Virus 2019-07-04 Completed [facility]it y of Vaccine 00:00:00 [facility] Influenza Virus 2019-07-04 Completed [facility]it y of Vaccine Recomb Quad 00:00:00 [place] [facility], Preserv and ABX Branc h Free 18-64 YRS Influenza Virus 2019-07-04 Completed [facility]it y of Vaccine 00:00:00 [facility] Influenza Virus 2019-07-04 Completed [facility] y of Vaccine Recomb Quad 00:00:00 [place] [facility], Preserv and ABX Branc h Free 18-64 YRS Influenza Virus 2019-07-04 Completed [facility]it y of Vaccine 00:00:00 [facility] Influenza Virus 2019-07-04 Completed [facility]it y of Vaccine Recomb Quad 00:00:00 [place] [facility], Preserv and ABX Branc h Free 18-64 YRS Influenza Virus 2019-07-04 Completed [facility]it y of Vaccine 00:00:00 [facility] Influenza Virus 2019-07-04 Completed [facility]it y of Vaccine Recomb Quad 00:00:00 [place] [facility], Preserv and ABX Branc h Free 18-64 YRS Influenza Virus 2019-07-04 Completed [facility]it y of Vaccine 00:00:00 [facility] Influenza Virus 2019-07-04 Completed [facility] y of Vaccine Recomb Quad 00:00:00 [place] [facility], Preserv and ABX Branc h Free 18-64 YRS Influenza Virus 2019-07-04 Completed [facility]it y of Vaccine 00:00:00 [facility] Influenza Virus 2019-07-04 Completed [facility]it y of Vaccine Recomb Quad 00:00:00 [place] [facility], Preserv and ABX Branc h Free 18-64 YRS Influenza Virus 2019-07-04 Completed [facility]it y of Vaccine 00:00:00 [facility] Influenza Virus 2019-07-04 Completed [facility]it y of Vaccine Recomb Quad 00:00:00 [place] [facility], Preserv and ABX Branc h Free 18-64 YRS Influenza Virus 2019-07-04 Completed [facility]it y of Vaccine 00:00:00 [facility] Influenza Virus 2019-07-04 Completed [facility]it y of Vaccine Recomb Quad 00:00:00 [place] [facility], Preserv and ABX Branc h Free 18-64 YRS Influenza Virus 2019-07-04 Completed [facility]it y of Vaccine 00:00:00 [facility] Influenza Virus 2019-07-04 Completed [facility] y of Vaccine Recomb Quad 00:00:00 [place] [facility], Preserv and ABX Branc h Free 18-64 YRS Influenza Virus 2019-07-04 Completed [facility]it y of Vaccine 00:00:00 [facility] Influenza Virus 2019-07-04 Completed [facility] y of Vaccine Recomb Quad 00:00:00 [place] [facility], Preserv and ABX Branc h Free 18-64 YRS Influenza Virus 2019-07-04 Completed [facility] y of Vaccine 00:00:00 [facility] Influenza Virus 2019-07-04 Completed [facility] y of Vaccine Recomb Quad 00:00:00 [place] [facility], Preserv and ABX Branc h Free 18-64 YRS Influenza Virus 2019-07-04 Completed [facility]it y of Vaccine 00:00:00 [facility] Influenza Virus 2019-07-04 Completed [facility] y of Vaccine Recomb Quad 00:00:00 [place] [facility], Preserv and ABX Branc h Free 18-64 YRS Influenza Virus 2019-07-04 Completed [facility]it y of Vaccine 00:00:00 [facility] Influenza Virus 2019-07-04 Completed [facility] y of Vaccine Recomb Quad 00:00:00 [place] [facility], Preserv and ABX Branc h Free 18-64 YRS Influenza Virus 2019-07-04 Completed [facility] y of Vaccine 00:00:00 [facility] Influenza Virus 2019-07-04 Completed [facility] y of Vaccine Recomb Quad 00:00:00 [place] [facility], Preserv and ABX Branc h Free 18-64 YRS Influenza Virus 2019-07-04 Completed [facility]it y of Vaccine 00:00:00 [facility] Influenza Virus 2019-07-04 Completed [facility] y of Vaccine Recomb Quad 00:00:00 [place] [facility], Preserv and ABX Branc h Free 18-64 YRS Influenza Virus 2019-07-04 Completed [facility]it y of Vaccine 00:00:00 [facility] Influenza Virus 2019-07-04 Completed [facility] y of Vaccine Recomb Quad 00:00:00 [place] [facility], Preserv and ABX Branc h Free 18-64 YRS Influenza Virus 2019-07-04 Completed [facility] y of Vaccine 00:00:00 [facility] Influenza Virus 2019-07-04 Completed [facility] y of Vaccine Recomb Quad 00:00:00 [place] [facility], Preserv and ABX Branc h Free 18-64 YRS Influenza Virus 2019-07-04 Completed [facility] y of Vaccine 00:00:00 [facility] Influenza Virus 2019-07-04 Completed [facility] y of Vaccine Recomb Quad 00:00:00 [place] [facility], Preserv and ABX Branc h Free 18-64 YRS Influenza Virus 2019-07-04 Completed [facility] y of Vaccine 00:00:00 [facility] Influenza Virus 2019-07-04 Completed [facility] y of Vaccine Recomb Quad 00:00:00 [facility], Preserv and ABX Branc h Free 18-64 YRS Influenza Virus 2019-07-04 Completed [facility] Vaccine 00:00:00 [facility] Influenza Virus 2019-07-04 Completed [facility] Vaccine [facility] Quad 00:00:00 [facility], Preserv and ABX Branc h Free 18-64 YRS Influenza Virus 2019-07-04 Completed [facility] Vaccine 00:00:00 [facility] Influenza Virus 2019-07-04 Completed [facility] Vaccine Recomb Quad 00:00:00 [facility], Preserv and ABX Branc h Free 18-64 YRS Influenza Virus 2019-07-04 Completed [facility] Vaccine 00:00:00 [facility] Influenza Virus 2019-07-04 Completed [facility] Vaccine Recomb Quad 00:00:00 [facility], Preserv and ABX Branc h Free 18-64 YRS Influenza Virus 2019-07-04 Completed [facility] Vaccine 00:00:00 [facility] Influenza Virus 2019-07-04 Completed [facility] Vaccine Recomb Quad 00:00:00 [facility], Preserv and ABX Branc h Free 18-64 YRS Influenza Virus 2019-07-04 Completed [facility] Vaccine 00:00:00 [facility] Influenza Virus 2019-07-04 Completed [facility] Vaccine Recomb Quad 00:00:00 [facility], Preserv and ABX Branc h Free 18-64 YRS Influenza Virus 2019-07-04 Completed [facility] Vaccine 00:00:00 [facility] Influenza Virus 2019-07-04 Completed [facility] Vaccine Recomb Quad 00:00:00 [facility], Preserv and ABX Branc h Free 18-64 YRS Influenza Virus 2019-07-04 Completed [facility] Vaccine 00:00:00 [facility] Influenza Virus 2019-07-04 Completed [facility] Vaccine Recomb Quad 00:00:00 [facility], Preserv and ABX Branc h Free 18-64 YRS Influenza Virus 2019-07-04 Completed [facility] Vaccine 00:00:00 [facility] Influenza Virus 2019-07-04 Completed [facility] Vaccine Recomb Quad 00:00:00 [facility], Preserv and ABX Branc h Free 18-64 YRS Influenza Virus 2019-07-04 Completed [facility] Vaccine 00:00:00 [facility] Influenza Virus 2019-07-04 Completed [facility] Vaccine Recomb Quad 00:00:00 [facility], Preserv and ABX Branc h Free 18-64 YRS Influenza Virus 2019-07-04 Completed [facility] Vaccine 00:00:00 [facility] Influenza Virus 2019-07-04 Completed [facility] Vaccine Recomb Quad 00:00:00 [facility], Preserv and ABX Branc h Free 18-64 YRS Influenza Virus 2019-07-04 Completed [facility] Vaccine 00:00:00 [facility] Influenza Virus 2019-07-04 Completed [facility] Vaccine Recomb Quad 00:00:00 [facility], Preserv and ABX Branc h Free 18-64 YRS Influenza Virus 2019-07-04 Completed [facility] Vaccine 00:00:00 [facility] Influenza Virus 2019-07-04 Completed [facility] Vaccine Recomb Quad 00:00:00 [facility], Preserv and ABX Branc h Free 18-64 YRS Influenza Virus 2019-07-04 Completed [facility] Vaccine 00:00:00 [facility] Influenza Virus 2019-07-04 Completed [facility] Vaccine Recomb Quad 00:00:00 [facility], Preserv and ABX Branc h Free 18-64 YRS Influenza Virus 2019-07-04 Completed [facility] Vaccine 00:00:00 [facility] Influenza Virus 2019-07-04 Completed [facility] Vaccine Recomb Quad 00:00:00 [facility], Preserv and ABX Branc h Free 18-64 YRS Influenza Virus 2019-07-04 Completed [facility] Vaccine 00:00:00 [facility] Influenza Virus 2019-07-04 Completed [facility] Vaccine Recomb Quad 00:00:00 [facility], Preserv and ABX Branc h Free 18-64 YRS Influenza Virus 2019-07-04 Completed [facility] Vaccine 00:00:00 [facility] Influenza Virus 2019-07-04 Completed [facility] Vaccine Recomb Quad 00:00:00 [facility], Preserv and ABX Branc h Free 18-64 YRS Influenza Virus 2019-07-04 Completed [facility] Vaccine 00:00:00 [facility] Influenza Virus 2019-07-04 Completed [facility] Vaccine Recomb Quad 00:00:00 [facility], Preserv and ABX Branc h Free 18-64 YRS Influenza Virus 2019-07-04 Completed [facility] Vaccine 00:00:00 [facility] Influenza Virus 2019-07-04 Completed [facility] Vaccine Recomb Quad 00:00:00 [facility], Preserv and ABX Branc h Free 18-64 YRS Influenza Virus 2019-07-04 Completed [facility] Vaccine 00:00:00 [facility] Influenza Virus 2019-07-04 Completed [facility] Vaccine Recomb Quad 00:00:00 [facility], Preserv and ABX Branc h Free 18-64 YRS Influenza Virus 2019-07-04 Completed [facility] Vaccine 00:00:00 [facility] Influenza Virus 2019-07-04 Completed [facility] Vaccine Recomb Quad 00:00:00 [facility], Preserv and ABX Branc h Free 18-64 YRS Influenza Virus 2019-07-04 Completed [facility] Vaccine 00:00:00 [facility] Influenza Virus 2019-07-04 Completed [facility] Vaccine Recomb Quad 00:00:00 [facility], Preserv and ABX Branc h Free 18-64 YRS Influenza Virus 2019-07-04 Completed [facility] Vaccine 00:00:00 [facility] Influenza Virus 2019-07-04 Completed [facility] Vaccine Recomb Quad 00:00:00 [facility], Preserv and ABX Branc h Free 18-64 YRS Influenza Virus 2019-07-04 Completed [facility] Vaccine 00:00:00 [facility] Influenza Virus 2019-07-04 Completed [facility] Vaccine Recomb Quad 00:00:00 [facility], Preserv and ABX Branc h Free 18-64 YRS Influenza Virus 2019-07-04 Completed [facility] Vaccine 00:00:00 [facility] Influenza Virus 2019-07-04 Completed [facility] Vaccine Recomb Quad 00:00:00 [facility], Preserv and ABX Branc h Free 18-64 YRS Influenza Virus 2019-07-04 Completed [facility] Vaccine 00:00:00 [facility] Influenza Virus 2019-07-04 Completed [facility] Vaccine Recomb Quad 00:00:00 [facility], Preserv and ABX Branc h Free 18-64 YRS Influenza Virus 2019-07-04 Completed [facility] Vaccine 00:00:00 [facility] Influenza Virus 2019-07-04 Completed [facility] Vaccine Recomb Quad 00:00:00 [facility], Preserv and ABX Branc h Free 18-64 YRS Influenza Virus 2019-07-04 Completed [facility] Vaccine 00:00:00 [facility] Influenza Virus 2019-07-04 Completed [facility] Vaccine Recomb Quad 00:00:00 [facility], Preserv and ABX Branc h Free 18-64 YRS Influenza Virus 2019-07-04 Completed [facility] Vaccine 00:00:00 [facility] Influenza Virus 2019-07-04 Completed [facility] Vaccine Recomb Quad 00:00:00 [facility], Preserv and ABX Branc h Free 18-64 YRS Influenza Virus 2019-07-04 Completed [facility] Vaccine 00:00:00 [facility] Influenza Virus 2019-07-04 Completed [facility] Vaccine Recomb Quad 00:00:00 [facility], Preserv and ABX Branc h Free 18-64 YRS Influenza Virus 2019-07-04 Completed [facility] Vaccine 00:00:00 [facility] Influenza Virus 2019-07-04 Completed [facility] Vaccine Recomb Quad 00:00:00 [facility], Preserv and ABX Branc h Free 18-64 YRS Influenza Virus 2019-07-04 Completed [facility] Vaccine 00:00:00 [facility] Influenza Virus 2019-07-04 Completed [facility] Vaccine Recomb Quad 00:00:00 [facility], Preserv and ABX Branc h Free 18-64 YRS Influenza Virus 2019-07-04 Completed [facility] Vaccine 00:00:00 [facility] Influenza Virus 2019-07-04 Completed [facility] Vaccine Recomb Quad 00:00:00 [facility], Preserv and ABX Branc h Free 18-64 YRS Influenza Virus 2019-07-04 Completed [facility] Vaccine 00:00:00 [facility] Influenza Virus 2019-07-04 Completed [facility] Vaccine Recomb Quad 00:00:00 [facility], Preserv and ABX Branc h Free 18-64 YRS Influenza Virus 2019-07-04 Completed [facility] Vaccine 00:00:00 [facility] Influenza Virus 2019-07-04 Completed [facility] Vaccine Recomb Quad 00:00:00 [facility], Preserv and ABX Branc h Free 18-64 YRS Influenza Virus 2019-07-04 Completed [facility] Vaccine 00:00:00 [facility] Influenza Virus 2019-07-04 Completed [facility] Vaccine Recomb Quad 00:00:00 [facility], Preserv and ABX Branc h Free 18-64 YRS Influenza Virus 2019-07-04 Completed [facility] Vaccine 00:00:00 [facility] Influenza Virus 2019-07-04 Completed [facility] of Vaccine Recomb Quad 00:00:00 [facility], Preserv and ABX Branc h Free 18-64 YRS Influenza Virus 2019-07-04 Completed [facility] Vaccine 00:00:00 [facility] Influenza Virus 2019-07-04 Completed [facility] Vaccine Recomb Quad 00:00:00 [facility], Preserv and ABX Branc h Free 18-64 YRS Influenza Virus 2019-07-04 Completed [facility] Vaccine 00:00:00 [facility] Influenza Virus 2019-07-04 Completed [facility] Vaccine Recomb Quad 00:00:00 [facility], Preserv and ABX Branc h Free 18-64 YRS Influenza Virus 2019-07-04 Completed [facility] Vaccine 00:00:00 [facility] Influenza Virus 2019-07-04 Completed [facility] of Vaccine Recomb Quad 00:00:00 [facility], Preserv and ABX Branc h Free 18-64 YRS Influenza Virus 2019-07-04 Completed [facility] Vaccine 00:00:00 [facility] Influenza Virus 2019-07-04 Completed [facility] Vaccine Recomb Quad 00:00:00 [facility], Preserv and ABX Branc h Free 18-64 YRS Influenza Virus 2019-07-04 Completed [facility] Vaccine 00:00:00 [facility] Influenza Virus 2019-07-04 Completed [facility] Vaccine Recomb Quad 00:00:00 [facility], Preserv and ABX Branc h Free 18-64 YRS Influenza Virus 2019-07-04 Completed [facility] Vaccine 00:00:00 [facility] Influenza Virus 2019-07-04 Completed [facility] Vaccine Recomb Quad 00:00:00 [facility], Preserv and ABX Branc h Free 18-64 YRS Influenza Virus 2019-07-04 Completed [facility] Vaccine 00:00:00 [facility] Influenza Virus 2019-07-04 Completed [facility] of Vaccine Recomb Quad 00:00:00 [facility], Preserv and ABX Branc h Free 18-64 YRS Influenza Virus 2019-07-04 Completed [facility] Vaccine 00:00:00 [facility] Influenza Virus 2019-07-04 Completed [facility] Vaccine Recomb Quad 00:00:00 [facility], Preserv and ABX Branc h Free 18-64 YRS Influenza Virus 2019-07-04 Completed [facility] Vaccine 00:00:00 [facility] Influenza Virus 2019-07-04 Completed [facility] Vaccine Recomb Quad 00:00:00 [facility], Preserv and ABX Branc h Free 18-64 YRS Influenza Virus 2018-06-30 Completed [facility] of Vaccine Quad IM 3+ 00:00:00 [facility] Influenza Virus 2018-06-30 Completed [facility] y of Vaccine Quad IM 3+ 00:00:00 [facility] Influenza Virus 2018-06-30 Completed [facility] of Vaccine Quad IM 3+ 00:00:00 [facility] Influenza Virus 2018-06-30 Completed [facility] of Vaccine Quad IM 3+ 00:00:00 [facility] Influenza Virus 2018-06-30 Completed [facility] of Vaccine Quad IM 3+ 00:00:00 [facility] Influenza Virus 2018-06-30 Completed [facility] of Vaccine Quad IM 3+ 00:00:00 [facility] Influenza Virus 2018-06-30 Completed [facility] of Vaccine Quad IM 3+ 00:00:00 [facility] Influenza Virus 2018-06-30 Completed [facility] of Vaccine Quad IM 3+ 00:00:00 [facility] Influenza Virus 2018-06-30 Completed [facility] of Vaccine Quad IM 3+ 00:00:00 [facility] Influenza Virus 2018-06-30 Completed [facility] of Vaccine Quad IM 3+ 00:00:00 [facility] Influenza Virus 2018-06-30 Completed [facility] of Vaccine Quad IM 3+ 00:00:00 [facility] Influenza Virus 2018-06-30 Completed [facility] of Vaccine Quad IM 3+ 00:00:00 [facility] Influenza Virus 2018-06-30 Completed [facility] of Vaccine Quad IM 3+ 00:00:00 [facility] Influenza Virus 2018-06-30 Completed [facility] of Vaccine Quad IM 3+ 00:00:00 [facility] Influenza Virus 2018-06-30 Completed [facility] of Vaccine Quad IM 3+ 00:00:00 [facility] Influenza Virus 2018-06-30 Completed [facility] of Vaccine Quad IM 3+ 00:00:00 [facility] Influenza Virus 2018-06-30 Completed [facility] of Vaccine Quad IM 3+ 00:00:00 [facility] Influenza Virus 2018-06-30 Completed [facility] of Vaccine Quad IM 3+ 00:00:00 [facility] Influenza Virus 2018-06-30 Completed [facility] of Vaccine Quad IM 3+ 00:00:00 [facility] Influenza Virus 2018-06-30 Completed [facility] of Vaccine Quad IM 3+ 00:00:00 [facility] Influenza Virus 2018-06-30 Completed [facility] of Vaccine Quad IM 3+ 00:00:00 [facility] Influenza Virus 2018-06-30 Completed [facility] of Vaccine Quad IM 3+ 00:00:00 [facility] Influenza Virus 2018-06-30 Completed [facility] of Vaccine Quad IM 3+ 00:00:00 [facility] Influenza Virus 2018-06-30 Completed [facility] of Vaccine Quad IM 3+ 00:00:00 [facility] Influenza Virus 2018-06-30 Completed [facility] of Vaccine Quad IM 3+ 00:00:00 [facility] Influenza Virus 2018-06-30 Completed [facility] of Vaccine Quad IM 3+ 00:00:00 [facility] Influenza Virus 2018-06-30 Completed [facility] of Vaccine Quad IM 3+ 00:00:00 [facility] Influenza Virus 2018-06-30 Completed [facility] of Vaccine Quad IM 3+ 00:00:00 [facility] Influenza Virus 2018-06-30 Completed [facility] of Vaccine Quad IM 3+ 00:00:00 [facility] Influenza Virus 2018-06-30 Completed [facility] of Vaccine Quad IM 3+ 00:00:00 [facility] Influenza Virus 2018-06-30 Completed [facility] of Vaccine Quad IM 3+ 00:00:00 [facility] Influenza Virus 2018-06-30 Completed [facility] of Vaccine Quad IM 3+ 00:00:00 [facility] Influenza Virus 2018-06-30 Completed [facility] of Vaccine Quad IM 3+ 00:00:00 [facility] Influenza Virus 2018-06-30 Completed [facility] of Vaccine Quad IM 3+ 00:00:00 [facility] Influenza Virus 2018-06-30 Completed [facility] of Vaccine Quad IM 3+ 00:00:00 [facility] Influenza Virus 2018-06-30 Completed [facility] of Vaccine Quad IM 3+ 00:00:00 [facility] Influenza Virus 2018-06-30 Completed [facility] of Vaccine Quad IM 3+ 00:00:00 [facility] Influenza Virus 2018-06-30 Completed [facility] of Vaccine Quad IM 3+ 00:00:00 [facility] Influenza Virus 2018-06-30 Completed [facility] of Vaccine Quad IM 3+ 00:00:00 [facility] Influenza Virus 2018-06-30 Completed [facility] of Vaccine Quad IM 3+ 00:00:00 [facility] Influenza Virus 2018-06-30 Completed [facility] of Vaccine Quad IM 3+ 00:00:00 [facility] Influenza Virus 2018-06-30 Completed [facility] of Vaccine Quad IM 3+ 00:00:00 [facility] Influenza Virus 2018-06-30 Completed [facility] of Vaccine Quad IM 3+ 00:00:00 [facility] Influenza Virus 2018-06-30 Completed [facility] of Vaccine Quad IM 3+ 00:00:00 [facility] Influenza Virus 2018-06-30 Completed [facility] of Vaccine Quad IM 3+ 00:00:00 [facility] Influenza Virus 2018-06-30 Completed [facility] of Vaccine Quad IM 3+ 00:00:00 [facility] Influenza Virus 2018-06-30 Completed [facility] of Vaccine Quad IM 3+ 00:00:00 [facility] Influenza Virus 2018-06-30 Completed [facility] of Vaccine Quad IM 3+ 00:00:00 [facility] Influenza Virus 2018-06-30 Completed [facility] of Vaccine Quad IM 3+ 00:00:00 [facility] Influenza Virus 2018-06-30 Completed [facility] of Vaccine Quad IM 3+ 00:00:00 [facility] Influenza Virus 2018-06-30 Completed [facility] of Vaccine Quad IM 3+ 00:00:00 [facility] Influenza Virus 2018-06-30 Completed [facility] of Vaccine Quad IM 3+ 00:00:00 [facility] Influenza Virus 2018-06-30 Completed [facility] of Vaccine Quad IM 3+ 00:00:00 [facility] Influenza Virus 2018-06-30 Completed [facility] of Vaccine Quad IM 3+ 00:00:00 [facility] Influenza Virus 2018-06-30 Completed [facility] of Vaccine Quad IM 3+ 00:00:00 [facility] Influenza Virus 2018-06-30 Completed [facility] of Vaccine Quad IM 3+ 00:00:00 [facility] Influenza Virus 2018-06-30 Completed [facility] of Vaccine Quad IM 3+ 00:00:00 [facility] Influenza Virus 2018-06-30 Completed [facility] of Vaccine Quad IM 3+ 00:00:00 [facility] Influenza Virus 2018-06-30 Completed [facility] of Vaccine Quad IM 3+ 00:00:00 [facility] Influenza Virus 2018-06-30 Completed [facility] of Vaccine Quad IM 3+ 00:00:00 [facility] Influenza Virus 2018-06-30 Completed [facility] of Vaccine Quad IM 3+ 00:00:00 [facility] Influenza Virus 2018-06-30 Completed [facility] of Vaccine Quad IM 3+ 00:00:00 [facility] Influenza Virus 2018-06-30 Completed [facility] of Vaccine Quad IM 3+ 00:00:00 [facility] Influenza Virus 2018-06-30 Completed [facility] of Vaccine Quad IM 3+ 00:00:00 [facility] Influenza Virus 2018-06-30 Completed [facility] of Vaccine Quad IM 3+ 00:00:00 [facility] Influenza Virus 2018-06-30 Completed [facility] of Vaccine Quad IM 3+ 00:00:00 [facility] Influenza Virus 2018-06-30 Completed [facility] of Vaccine Quad IM 3+ 00:00:00 [facility] Influenza Virus 2018-06-30 Completed [facility] of Vaccine Quad IM 3+ 00:00:00 [facility] Influenza Virus 2018-06-30 Completed [facility] of Vaccine Quad IM 3+ 00:00:00 [facility] Influenza Virus 2018-06-30 Completed [facility] of Vaccine Quad IM 3+ 00:00:00 [facility] Influenza Virus 2018-06-30 Completed [facility] of Vaccine Quad IM 3+ 00:00:00 [facility] Influenza Virus 2018-06-30 Completed [facility] of Vaccine Quad IM 3+ 00:00:00 [facility] Influenza Virus 2018-06-30 Completed [facility] of Vaccine Quad IM 3+ 00:00:00 [facility] Influenza Virus 2018-06-30 Completed [facility] y of Vaccine Quad IM 3+ 00:00:00 [facility] Influenza Virus 2018-06-30 Completed [facility] of Vaccine Quad IM 3+ 00:00:00 [facility] Influenza Virus 2018-06-30 Completed [facility] of Vaccine Quad IM 3+ 00:00:00 [facility] Influenza Virus 2018-06-30 Completed [facility] of Vaccine Quad IM 3+ 00:00:00 [facility] Influenza Virus 2018-06-30 Completed [facility] of Vaccine Quad IM 3+ 00:00:00 [facility] Influenza Virus 2018-06-30 Completed [facility] of Vaccine Quad IM 3+ 00:00:00 [facility] Influenza Virus 2018-06-30 Completed [facility] of Vaccine Quad IM 3+ 00:00:00 [facility] Influenza Virus 2018-06-30 Completed [facility] of Vaccine Quad IM 3+ 00:00:00 [facility] Influenza Virus 2018-06-30 Completed [facility] of Vaccine Quad IM 3+ 00:00:00 [facility] Influenza Virus 2018-06-30 Completed [facility] of Vaccine Quad IM 3+ 00:00:00 [facility] Influenza Virus 2018-06-30 Completed [facility] of Vaccine Quad IM 3+ 00:00:00 [facility] Influenza Virus 2018-06-30 Completed [facility] of Vaccine Quad IM 3+ 00:00:00 [facility] Influenza Virus 2018-06-30 Completed [facility] of Vaccine Quad IM 3+ 00:00:00 [facility] Influenza Virus 2018-06-30 Completed [facility] of Vaccine Quad IM 3+ 00:00:00 [facility] Influenza Virus 2018-06-30 Completed [facility] of Vaccine Quad IM 3+ 00:00:00 [facility] Influenza Virus 2018-06-30 Completed [facility] of Vaccine Quad IM 3+ 00:00:00 [facility] Influenza Virus 2018-06-30 Completed [facility] of Vaccine Quad IM 3+ 00:00:00 [facility] Influenza Virus 2018-06-30 Completed [facility] of Vaccine Quad IM 3+ 00:00:00 [facility] Influenza Virus 2018-06-30 Completed [facility] of Vaccine Quad IM 3+ 00:00:00 [facility] Influenza Virus 2018-06-30 Completed [facility] of Vaccine Quad IM 3+ 00:00:00 [facility] Influenza Virus 2018-06-30 Completed [facility] of Vaccine Quad IM 3+ 00:00:00 [facility] Influenza Virus 2018-06-30 Completed [facility] of Vaccine Quad IM 3+ 00:00:00 [facility] Influenza Virus 2018-06-30 Completed [facility] of Vaccine Quad IM 3+ 00:00:00 [facility] Influenza Virus 2018-06-30 Completed [facility] of Vaccine Quad IM 3+ 00:00:00 [facility] Influenza Virus 2018-06-30 Completed [facility] of Vaccine Quad IM 3+ 00:00:00 [facility] Influenza Virus 2018-06-30 Completed [facility] of Vaccine Quad IM 3+ 00:00:00 [facility] Influenza Virus 2018-06-30 Completed [facility] of Vaccine Quad IM 3+ 00:00:00 [facility] Influenza Virus 2017-06-15 Completed [facility] of [...] [facility] Vaccine Quad IM 00:00:00 [place] [facility] Multi-dose 6+ MO Branch Influenza Virus 2016-08-05 Completed [facility] Vaccine Quad IM 00:00:00 [place] [facility] Multi-dose 6+ MO [facility] Influenza Virus 2016-08-05 Completed [facility] of Vaccine Quad IM 00:00:00 [place] [facility] Multi-dose 6+ MO [facility] Influenza Virus 2016-08-05 Completed [facility] Vaccine Quad IM 00:00:00 [place] [facility] Multi-dose 6+ MO [facility] Influenza Virus 2016-08-05 Completed [facility] of Vaccine Quad IM 00:00:00 [place] [facility] Multi-dose 6+ [place] [facility] Pneumococcal 13 2016-03-07 Completed [facility] of Conjugate, PCV13 00:00:00 [facility] dical (Prevnar 13) Branch Meningococcal B, OMV 2016-03-07 Completed Univ ersity of 00:00:00 [facility] Pneumococcal 13 2016-03-07 Completed [facility] y of Conjugate, PCV13 00:00:00 [facility] dical (Prevnar 13) Branch Meningococcal B, OMV 2016-03-07 Completed Univ ersity of 00:00:00 [facility] Pneumococcal 13 2016-03-07 Completed [facility] of Conjugate, PCV13 00:00:00 [place] [facility] (Prevnar 13) Branch Meningococcal B, V 2016-03-07 Completed Univ ersity of 00:00:00 [facility] Pneumococcal 13 2016-03-07 Completed [facility] of Conjugate, PCV13 00:00:00 [place] [facility] (Prevnar 13) Branch Meningococcal B, [facility] 2016-03-07 Completed Univ ersity of 00:00:00 [facility] Pneumococcal 13 2016-03-07 Completed [facility] of Conjugate, PCV13 00:00:00 [place] [facility] (Prevnar 13) Branch Meningococcal B, [facility] 2016-03-07 Completed Univ ersity of 00:00:00 [facility] Pneumococcal 13 2016-03-07 Completed [facility] of Conjugate, PCV13 00:00:00 [place] [facility] (Prevnar 13) Branch Meningococcal B, [facility] 2016-03-07 Completed Univ ersity of 00:00:00 [facility] Pneumococcal 13 2016-03-07 Completed [facility] Conjugate, PCV13 00:00:00 [place] [facility] (Prevnar 13) Branch Meningococcal B, [facility] 2016-03-07 Completed [facility] ers[facility] of 00:00:00 [facility] Pneumococcal 13 2016-03-07 Completed [facility] Conjugate, PCV13 00:00:00 [place] [facility] (Prevnar 13) Branch Meningococcal B, [facility] 2016-03-07 Completed [facility] ers[facility] of 00:00:00 [facility] Pneumococcal 13 2016-03-07 Completed [facility] Conjugate, PCV13 00:00:00 [place] [facility] (Prevnar 13) Branch Meningococcal B, [facility] 2016-03-07 Completed [facility] ers[facility] of 00:00:00 [facility] Pneumococcal 13 2016-03-07 Completed [facility] Conjugate, PCV13 00:00:00 [place] [facility] (Prevnar 13) Branch Meningococcal B, [facility] 2016-03-07 Completed [facility] ers[facility] of 00:00:00 [facility] Pneumococcal 13 2016-03-07 Completed [facility] Conjugate, PCV13 00:00:00 [place] [facility] (Prevnar 13) Branch Meningococcal B, [facility] 2016-03-07 Completed [facility] of 00:00:00 [facility] Pneumococcal 13 2016-03-07 Completed [facility] Conjugate, PCV13 00:00:00 [place] [facility] (Prevnar 13) Branch Meningococcal B, [facility] 2016-03-07 Completed [facility] ers[facility] of 00:00:00 [facility] Pneumococcal 13 2016-03-07 Completed [facility] of Conjugate, PCV13 00:00:00 [place] [facility] (Prevnar 13) Branch Meningococcal B, [facility] 2016-03-07 Completed [facility] ers[facility] of 00:00:00 [facility] Pneumococcal 13 2016-03-07 Completed [facility] Conjugate, PCV13 00:00:00 [place] [facility] (Prevnar 13) Branch Meningococcal B, [facility] 2016-03-07 Completed [facility] ers[facility] of 00:00:00 [facility] Pneumococcal 13 2016-03-07 Completed [facility] of Conjugate, PCV13 00:00:00 [facility] dical (Prevnar 13) Branch Meningococcal B, [facility] 2016-03-07 Completed [facility] ersity of 00:00:00 [facility] Pneumococcal 13 2016-03-07 Completed [facility] of Conjugate, PCV13 00:00:00 [facility] dical (Prevnar 13) Branch Meningococcal B, [facility] 2016-03-07 Completed [facility] ers[facility] of 00:00:00 [facility] Pneumococcal 13 2016-03-07 Completed [facility] of Conjugate, PCV13 00:00:00 [place] [facility] (Prevnar 13) Branch Meningococcal B, [facility] 2016-03-07 Completed [facility] ers[facility] of 00:00:00 [facility] Pneumococcal 13 2016-03-07 Completed [facility] of Conjugate, PCV13 00:00:00 [facility] dical (Prevnar 13) Branch Meningococcal B, [facility] 2016-03-07 Completed [facility] ers[facility] of 00:00:00 [facility] Pneumococcal 13 2016-03-07 Completed [facility] of Conjugate, PCV13 00:00:00 [place] [facility] (Prevnar 13) Branch Meningococcal B, [facility] 2016-03-07 Completed [facility] ers[facility] of 00:00:00 [facility] Pneumococcal 13 2016-03-07 Completed [facility] of Conjugate, PCV13 00:00:00 [facility] dical (Prevnar 13) Branch Meningococcal B, [facility] 2016-03-07 Completed [facility] ers[facility] of 00:00:00 [facility] Pneumococcal 13 2016-03-07 Completed [facility] of Conjugate, PCV13 00:00:00 [place] [facility] (Prevnar 13) Branch Meningococcal B, [facility] 2016-03-07 Completed [facility] ers[facility] of 00:00:00 [facility] Pneumococcal 13 2016-03-07 Completed [facility] of Conjugate, PCV13 00:00:00 [place] [facility] (Prevnar 13) Branch Meningococcal B, [facility] 2016-03-07 Completed [facility] ers[facility] of 00:00:00 [facility] Pneumococcal 13 2016-03-07 Completed [facility] of Conjugate, PCV13 00:00:00 [place] [facility] (Prevnar 13) Branch Meningococcal B, [facility] 2016-03-07 Completed [facility] ers[facility] of 00:00:00 [facility] Pneumococcal 13 2016-03-07 Completed [facility] of Conjugate, PCV13 00:00:00 [place] [facility] (Prevnar 13) Branch Meningococcal B, [facility] 2016-03-07 Completed [facility] ers[facility] of 00:00:00 [facility] Pneumococcal 13 2016-03-07 Completed [facility] of Conjugate, PCV13 00:00:00 [place] [facility] (Prevnar 13) Branch Meningococcal B, [facility] 2016-03-07 Completed [facility] ers[facility] of 00:00:00 [facility] Pneumococcal 13 2016-03-07 Completed [facility] of Conjugate, PCV13 00:00:00 [place] [facility] (Prevnar 13) Branch Meningococcal B, [facility] 2016-03-07 Completed [facility] of 00:00:00 [facility] Pneumococcal 13 2016-03-07 Completed [facility] of Conjugate, PCV13 00:00:00 [place] [facility] (Prevnar 13) Branch Meningococcal B, [facility] 2016-03-07 Completed [facility] ers[facility] of 00:00:00 [facility] Pneumococcal 13 2016-03-07 Completed [facility] of Conjugate, PCV13 00:00:00 [place] [facility] (Prevnar 13) Branch Meningococcal B, [facility] 2016-03-07 Completed [facility] ers[facility] of 00:00:00 [facility] Pneumococcal 13 2016-03-07 Completed [facility] of Conjugate, PCV13 00:00:00 [place] [facility] (Prevnar 13) Branch Meningococcal B, [facility] 2016-03-07 Completed [facility] ers[facility] of 00:00:00 [facility] Pneumococcal 13 2016-03-07 Completed [facility] of Conjugate, PCV13 00:00:00 [place] [facility] (Prevnar 13) Branch Meningococcal B, V 2016-03-07 Completed [facility] ers[facility] of 00:00:00 [facility] Pneumococcal 13 2016-03-07 Completed [facility] of Conjugate, PCV13 00:00:00 [place] [facility] (Prevnar 13) Branch Meningococcal B, V 2016-03-07 Completed [facility] of 00:00:00 [facility] Pneumococcal 13 2016-03-07 Completed [facility] of Conjugate, PCV13 00:00:00 [place] [facility] (Prevnar 13) Branch Meningococcal B, V 2016-03-07 Completed [facility] of 00:00:00 [facility] Pneumococcal 13 2016-03-07 Completed [facility] of Conjugate, PCV13 00:00:00 [place] [facility] (Prevnar 13) Branch Meningococcal B, V 2016-03-07 Completed [facility] ers[facility] of 00:00:00 [facility] Pneumococcal 13 2016-03-07 Completed [facility] of Conjugate, PCV13 00:00:00 [place] [facility] (Prevnar 13) Branch Meningococcal B, [facility] 2016-03-07 Completed [facility] ers[facility] of 00:00:00 [facility] Pneumococcal 13 2016-03-07 Completed [facility] of Conjugate, PCV13 00:00:00 [place] [facility] (Prevnar 13) Branch Meningococcal B, [facility] 2016-03-07 Completed [facility] ers[facility] of 00:00:00 [facility] Pneumococcal 13 2016-03-07 Completed [facility] of Conjugate, PCV13 00:00:00 [place] [facility] (Prevnar 13) Branch Meningococcal B, V 2016-03-07 Completed [facility] of 00:00:00 [facility] Pneumococcal 13 2016-03-07 Completed [facility] of Conjugate, PCV13 00:00:00 [place] [facility] (Prevnar 13) Branch Meningococcal B, [facility] 2016-03-07 Completed [facility] of 00:00:00 [facility] Pneumococcal 13 2016-03-07 Completed [facility] of Conjugate, PCV13 00:00:00 [place] [facility] (Prevnar 13) Branch Meningococcal B, V 2016-03-07 Completed [facility] 00:00:00 [facility] Pneumococcal 13 2016-03-07 Completed [facility] of Conjugate, PCV13 00:00:00 [facility] dical (Prevnar 13) Branch Meningococcal B, V 2016-03-07 Completed [facility] ers[facility] of 00:00:00 [facility] Pneumococcal 13 2016-03-07 Completed [facility] of Conjugate, PCV13 00:00:00 [place] [facility] (Prevnar 13) Branch Meningococcal B, V 2016-03-07 Completed [facility] ers[facility] of 00:00:00 [facility] Pneumococcal 13 2016-03-07 Completed [facility] of Conjugate, PCV13 00:00:00 [place] [facility] (Prevnar 13) Branch Meningococcal B, V 2016-03-07 Completed [facility] of 00:00:00 [facility] Pneumococcal 13 2016-03-07 Completed [facility] of Conjugate, PCV13 00:00:00 [place] [facility] (Prevnar 13) Branch Meningococcal B, V 2016-03-07 Completed [facility] ers[facility] of 00:00:00 [facility] Pneumococcal 13 2016-03-07 Completed [facility] of Conjugate, PCV13 00:00:00 [place] [facility] (Prevnar 13) Branch Meningococcal B, [facility] 2016-03-07 Completed [facility] ers[facility] of 00:00:00 [facility] Pneumococcal 13 2016-03-07 Completed [facility] of Conjugate, PCV13 00:00:00 [place] [facility] (Prevnar 13) Branch Meningococcal B, [facility] 2016-03-07 Completed [facility] ers[facility] of 00:00:00 [facility] Pneumococcal 13 2016-03-07 Completed [facility] of Conjugate, PCV13 00:00:00 [place] [facility] (Prevnar 13) Branch Meningococcal B, V 2016-03-07 Completed [facility] of 00:00:00 [facility] Pneumococcal 13 2016-03-07 Completed [facility] of Conjugate, PCV13 00:00:00 [place] [facility] (Prevnar 13) Branch Meningococcal B, [facility] 2016-03-07 Completed [facility] ers[facility] of 00:00:00 [facility] Pneumococcal 13 2016-03-07 Completed [facility] of Conjugate, PCV13 00:00:00 [place] [facility] (Prevnar 13) Branch Meningococcal B, [facility] 2016-03-07 Completed [facility] ers[facility] of 00:00:00 [facility] Pneumococcal 13 2016-03-07 Completed [facility] of Conjugate, PCV13 00:00:00 [place] [facility] (Prevnar 13) Branch Meningococcal B, [facility] 2016-03-07 Completed [facility] ers[facility] of 00:00:00 [facility] Pneumococcal 13 2016-03-07 Completed [facility] of Conjugate, PCV13 00:00:00 [place] [facility] (Prevnar 13) Branch Meningococcal B, V 2016-03-07 Completed [facility] of 00:00:00 [facility] Pneumococcal 13 2016-03-07 Completed [facility] of Conjugate, PCV13 00:00:00 [place] [facility] (Prevnar 13) Branch Meningococcal B, V 2016-03-07 Completed [facility] ers[facility] of 00:00:00 [facility] Pneumococcal 13 2016-03-07 Completed [facility] of Conjugate, PCV13 00:00:00 [place] [facility] (Prevnar 13) Branch Meningococcal B, [facility] 2016-03-07 Completed [facility] ers[facility] of 00:00:00 [facility] Pneumococcal 13 2016-03-07 Completed [facility] of Conjugate, PCV13 00:00:00 [place] [facility] (Prevnar 13) Branch Meningococcal B, [facility] 2016-03-07 Completed [facility] of 00:00:00 [facility] Pneumococcal 13 2016-03-07 Completed [facility] of Conjugate, PCV13 00:00:00 [place] [facility] (Prevnar 13) Branch Meningococcal B, [facility] 2016-03-07 Completed [facility] of 00:00:00 [facility] Pneumococcal 13 2016-03-07 Completed [facility] of Conjugate, PCV13 00:00:00 [place] [facility] (Prevnar 13) Branch Meningococcal B, [facility] 2016-03-07 Completed [facility] ers[facility] of 00:00:00 [facility] Pneumococcal 13 2016-03-07 Completed [facility] of Conjugate, PCV13 00:00:00 [place] [facility] (Prevnar 13) Branch Meningococcal B, [facility] 2016-03-07 Completed [facility] ers[facility] of 00:00:00 [facility] Pneumococcal 13 2016-03-07 Completed [facility] of Conjugate, PCV13 00:00:00 [place] [facility] (Prevnar 13) Branch Meningococcal B, [facility] 2016-03-07 Completed [facility] ers[facility] of 00:00:00 [facility] Pneumococcal 13 2016-03-07 Completed [facility] of Conjugate, PCV13 00:00:00 [place] [facility] (Prevnar 13) Branch Meningococcal B, [facility] 2016-03-07 Completed [facility] ers[facility] of 00:00:00 [facility] Pneumococcal 13 2016-03-07 Completed [facility] of Conjugate, PCV13 00:00:00 [place] [facility] (Prevnar 13) Branch Meningococcal B, V 2016-03-07 Completed [facility] of 00:00:00 [facility] Pneumococcal 13 2016-03-07 Completed [facility] of Conjugate, PCV13 00:00:00 [place] [facility] (Prevnar 13) Branch Meningococcal B, V 2016-03-07 Completed [facility] of 00:00:00 [facility] Pneumococcal 13 2016-03-07 Completed [facility] of Conjugate, PCV13 00:00:00 [place] [facility] (Prevnar 13) Branch Meningococcal B, V 2016-03-07 Completed [facility] of 00:00:00 [facility] Pneumococcal 13 2016-03-07 Completed [facility] of Conjugate, PCV13 00:00:00 [place] [facility] (Prevnar 13) Branch Meningococcal B, [facility] 2016-03-07 Completed [facility] of 00:00:00 [facility] Pneumococcal 13 2016-03-07 Completed [facility] of Conjugate, PCV13 00:00:00 [place] [facility] (Prevnar 13) Branch Meningococcal B, [facility] 2016-03-07 Completed [facility] of 00:00:00 [facility] Pneumococcal 13 2016-03-07 Completed [facility] of Conjugate, PCV13 00:00:00 [place] [facility] (Prevnar 13) Branch Meningococcal B, [facility] 2016-03-07 Completed [facility] of 00:00:00 [facility] Pneumococcal 13 2016-03-07 Completed [facility] of Conjugate, PCV13 00:00:00 [place] [facility] (Prevnar 13) Branch Meningococcal B, [facility] 2016-03-07 Completed [facility] of 00:00:00 [facility] Pneumococcal 13 2016-03-07 Completed [facility] of Conjugate, PCV13 00:00:00 [place] [facility] (Prevnar 13) Branch Meningococcal B, [facility] 2016-03-07 Completed [facility] ers[facility] of 00:00:00 [facility] Pneumococcal 13 2016-03-07 Completed [facility] of Conjugate, PCV13 00:00:00 [place] [facility] (Prevnar 13) Branch Meningococcal B, [facility] 2016-03-07 Completed [facility] ers[facility] of 00:00:00 [facility] Pneumococcal 13 2016-03-07 Completed [facility] of Conjugate, PCV13 00:00:00 [place] [facility] (Prevnar 13) Branch Meningococcal B, V 2016-03-07 Completed [facility] of 00:00:00 [facility] Pneumococcal 13 2016-03-07 Completed [facility] of Conjugate, PCV13 00:00:00 [place] [facility] (Prevnar 13) Branch Meningococcal B, V 2016-03-07 Completed [facility] ers[facility] of 00:00:00 [facility] Pneumococcal 13 2016-03-07 Completed [facility] of Conjugate, PCV13 00:00:00 [place] [facility] (Prevnar 13) Branch Meningococcal B, V 2016-03-07 Completed [facility] of 00:00:00 [facility] Pneumococcal 13 2016-03-07 Completed [facility] of Conjugate, PCV13 00:00:00 [place] [facility] (Prevnar 13) Branch Meningococcal B, V 2016-03-07 Completed [facility] ers[facility] of 00:00:00 [facility] Pneumococcal 13 2016-03-07 Completed [facility] of Conjugate, PCV13 00:00:00 [place] [facility] (Prevnar 13) Branch Meningococcal B, [facility] 2016-03-07 Completed [facility] ers[facility] of 00:00:00 [facility] Pneumococcal 13 2016-03-07 Completed [facility] of Conjugate, PCV13 00:00:00 [place] [facility] (Prevnar 13) Branch Meningococcal B, [facility] 2016-03-07 Completed [facility] of 00:00:00 [facility] Pneumococcal 13 2016-03-07 Completed [facility] of Conjugate, PCV13 00:00:00 [place] [facility] (Prevnar 13) Branch Meningococcal B, [facility] 2016-03-07 Completed [facility] ers[facility] of 00:00:00 [facility] Pneumococcal 13 2016-03-07 Completed [facility] of Conjugate, PCV13 00:00:00 [place] [facility] (Prevnar 13) Branch Meningococcal B, [facility] 2016-03-07 Completed [facility] ers[facility] of 00:00:00 [facility] Pneumococcal 13 2016-03-07 Completed [facility] of Conjugate, PCV13 00:00:00 [place] [facility] (Prevnar 13) Branch Meningococcal B, [facility] 2016-03-07 Completed [facility] ers[facility] of 00:00:00 [facility] Pneumococcal 13 2016-03-07 Completed [facility] of Conjugate, PCV13 00:00:00 [place] [facility] (Prevnar 13) Branch Meningococcal B, V 2016-03-07 Completed [facility] ers[facility] of 00:00:00 [facility] Pneumococcal 13 2016-03-07 Completed [facility] of Conjugate, PCV13 00:00:00 [place] [facility] (Prevnar 13) Branch Meningococcal B, V 2016-03-07 Completed [facility] ers[facility] of 00:00:00 [facility] Pneumococcal 13 2016-03-07 Completed [facility] of Conjugate, PCV13 00:00:00 [place] [facility] (Prevnar 13) Branch Meningococcal B, V 2016-03-07 Completed [facility] ers[facility] of 00:00:00 [facility] Pneumococcal 13 2016-03-07 Completed [facility] of Conjugate, PCV13 00:00:00 [place] [facility] (Prevnar 13) Branch Meningococcal B, [facility] 2016-03-07 Completed [facility] ersity of 00:00:00 [facility] Pneumococcal 13 2016-03-07 Completed [facility] of Conjugate, PCV13 00:00:00 [place] [facility] (Prevnar 13) Branch Meningococcal B, [facility] 2016-03-07 Completed [facility] ersity of 00:00:00 [facility] Pneumococcal 13 2016-03-07 Completed [facility] of Conjugate, PCV13 00:00:00 [place] [facility] (Prevnar 13) Branch Meningococcal B, [facility] 2016-03-07 Completed [facility] ers[facility] of 00:00:00 [facility] Pneumococcal 13 2016-03-07 Completed [facility] of Conjugate, PCV13 00:00:00 [place] [facility] (Prevnar 13) Branch Meningococcal B, [facility] 2016-03-07 Completed [facility] ers[facility] of 00:00:00 [facility] Pneumococcal 13 2016-03-07 Completed [facility] of Conjugate, PCV13 00:00:00 [place] [facility] (Prevnar 13) Branch Meningococcal B, [facility] 2016-03-07 Completed [facility] ersity of 00:00:00 [facility] Pneumococcal 13 2016-03-07 Completed [facility] of Conjugate, PCV13 00:00:00 [place] [facility] (Prevnar 13) Branch Meningococcal B, [facility] 2016-03-07 Completed [facility] of 00:00:00 [facility] Pneumococcal 13 2016-03-07 Completed [facility] of Conjugate, PCV13 00:00:00 [place] [facility] (Prevnar 13) Branch Meningococcal B, V 2016-03-07 Completed [facility] ers[facility] of 00:00:00 [facility] Pneumococcal 13 2016-03-07 Completed [facility] of Conjugate, PCV13 00:00:00 [place] [facility] (Prevnar 13) Branch Meningococcal B, V 2016-03-07 Completed [facility] of 00:00:00 [facility] Pneumococcal 13 2016-03-07 Completed [facility] y of Conjugate, PCV13 00:00:00 [facility] dical (Prevnar 13) Branch Meningococcal B, [facility] 2016-03-07 Completed [facility] ersity of 00:00:00 [facility] Pneumococcal 13 2016-03-07 Completed [facility] y of Conjugate, PCV13 00:00:00 [place] [facility] (Prevnar 13) Branch Meningococcal B, [facility] 2016-03-07 Completed [facility] ers[facility] of 00:00:00 [facility] Pneumococcal 13 2016-03-07 Completed [facility] of Conjugate, PCV13 00:00:00 [facility] dical (Prevnar 13) Branch Meningococcal B, [facility] 2016-03-07 Completed [facility] ersity of 00:00:00 [facility] Pneumococcal 13 2016-03-07 Completed [facility] of Conjugate, PCV13 00:00:00 [facility] dical (Prevnar 13) Branch Meningococcal B, [facility] 2016-03-07 Completed [facility] ersity of 00:00:00 [facility] Pneumococcal 13 2016-03-07 Completed [facility] y of Conjugate, PCV13 00:00:00 [facility] dical (Prevnar 13) Branch Meningococcal B, [facility] 2016-03-07 Completed [facility] ersity of 00:00:00 [facility] Pneumococcal 13 2016-03-07 Completed [facility] of Conjugate, PCV13 00:00:00 [place] [facility] (Prevnar 13) Branch Meningococcal B, [facility] 2016-03-07 Completed [facility] ers[facility] of 00:00:00 [facility] Pneumococcal 13 2016-03-07 Completed [facility] of Conjugate, PCV13 00:00:00 [place] [facility] (Prevnar 13) Branch Meningococcal B, V 2016-03-07 Completed [facility] 00:00:00 [facility] Pneumococcal 13 2016-03-07 Completed [facility] of Conjugate, PCV13 00:00:00 [place] [facility] (Prevnar 13) Branch Meningococcal B, [facility] 2016-03-07 Completed [facility] of 00:00:00 [facility] Pneumococcal 13 2016-03-07 Completed [facility] of Conjugate, PCV13 00:00:00 [place] [facility] (Prevnar 13) Branch Meningococcal B, [facility] 2016-03-07 Completed [facility]ity of 00:00:00 [facility] Pneumococcal 13 2016-03-07 Completed [facility] of Conjugate, PCV13 00:00:00 [place] [facility] (Prevnar 13) Branch Meningococcal B, [facility] 2016-03-07 Completed [facility] of 00:00:00 [facility] Pneumococcal 13 2016-03-07 Completed [facility] of Conjugate, PCV13 00:00:00 [place] [facility] (Prevnar 13) Branch Meningococcal B, [facility] 2016-03-07 Completed [facility] ersity of 00:00:00 [facility] Pneumococcal 13 2016-03-07 Completed [facility] of Conjugate, PCV13 00:00:00 [place] [facility] (Prevnar 13) Branch Meningococcal B, [facility] 2016-03-07 Completed [facility] of 00:00:00 [facility] Pneumococcal 13 2016-03-07 Completed [facility] of Conjugate, PCV13 00:00:00 [place] [facility] (Prevnar 13) Branch Meningococcal B, [facility] 2016-03-07 Completed [facility] of 00:00:00 [facility] Pneumococcal 13 2016-03-07 Completed [facility] of Conjugate, PCV13 00:00:00 [place] [facility] (Prevnar 13) Branch Meningococcal B, [facility] 2016-03-07 Completed [facility] of 00:00:00 [facility] Heamophilus Influenza 2015-11-13 Completed Uni versity of B 00:00:00 [facility] Heamophilus Influenza 2015-11-13 Completed [facility] vers[facility] of B 00:00:00 [facility] Heamophilus Influenza 2015-11-13 Completed [facility] vers[facility] of B 00:00:00 [facility] Heamophilus Influenza 2015-11-13 Completed [facility] vers[facility] B 00:00:00 [facility] Heamophilus Influenza 2015-11-13 Completed [facility] B 00:00:00 [facility] Heamophilus Influenza 2015-11-13 Completed [facility] vers[facility] of B 00:00:00 [facility] Heamophilus Influenza 2015-11-13 Completed [facility] vers[facility] B 00:00:00 [facility] Heamophilus Influenza 2015-11-13 Completed [facility] B 00:00:00 [facility] Heamophilus Influenza 2015-11-13 Completed [facility] B 00:00:00 [facility] Heamophilus Influenza 2015-11-13 Completed [facility] of B 00:00:00 [facility] Heamophilus Influenza 2015-11-13 Completed [facility] B 00:00:00 [facility] Heamophilus Influenza 2015-11-13 Completed [facility] B 00:00:00 [facility] Heamophilus Influenza 2015-11-13 Completed [facility] B 00:00:00 [facility] Heamophilus Influenza 2015-11-13 Completed [facility] B 00:00:00 [facility] Heamophilus Influenza 2015-11-13 Completed [facility] B 00:00:00 [facility] Heamophilus Influenza 2015-11-13 Completed [facility] B 00:00:00 [facility] Heamophilus Influenza 2015-11-13 Completed [facility] B 00:00:00 [facility] Heamophilus Influenza 2015-11-13 Completed [facility] B 00:00:00 [facility] Heamophilus Influenza 2015-11-13 Completed Uni versity of B 00:00:00 [facility] Heamophilus Influenza 2015-11-13 Completed Uni versity of B 00:00:00 [facility] Heamophilus Influenza 2015-11-13 Completed Uni versity of B 00:00:00 [facility] Heamophilus Influenza 2015-11-13 Completed Uni versity of B 00:00:00 [facility] Heamophilus Influenza 2015-11-13 Completed Uni versity of B 00:00:00 [facility] Heamophilus Influenza 2015-11-13 Completed Uni versity of B 00:00:00 [facility] Heamophilus Influenza 2015-11-13 Completed Uni versity of B 00:00:00 [facility] Heamophilus Influenza 2015-11-13 Completed Uni versity of B 00:00:00 [facility] Heamophilus Influenza 2015-11-13 Completed Uni versity of B 00:00:00 [facility] Heamophilus Influenza 2015-11-13 Completed Uni versity of B 00:00:00 [facility] Heamophilus Influenza 2015-11-13 Completed Uni versity of B 00:00:00 [facility] Heamophilus Influenza 2015-11-13 Completed Uni versity of B 00:00:00 [facility] Heamophilus Influenza 2015-11-13 Completed Uni versity of B 00:00:00 [facility] Heamophilus Influenza 2015-11-13 Completed Uni versity of B 00:00:00 [facility] Heamophilus Influenza 2015-11-13 Completed Uni versity of B 00:00:00 [facility] Heamophilus Influenza 2015-11-13 Completed Uni versity of B 00:00:00 [facility] Heamophilus Influenza 2015-11-13 Completed Uni versity of B 00:00:00 [facility] Heamophilus Influenza 2015-11-13 Completed Uni versity of B 00:00:00 [facility] Heamophilus Influenza 2015-11-13 Completed Uni versity of B 00:00:00 [facility] Heamophilus Influenza 2015-11-13 Completed Uni versity of B 00:00:00 [facility] Heamophilus Influenza 2015-11-13 Completed Uni versity of B 00:00:00 [facility] Heamophilus Influenza 2015-11-13 Completed Uni versity of B 00:00:00 [facility] Heamophilus Influenza 2015-11-13 Completed Uni versity of B 00:00:00 [facility] Heamophilus Influenza 2015-11-13 Completed Uni versity of B 00:00:00 [facility] Heamophilus Influenza 2015-11-13 Completed Uni versity of B 00:00:00 [facility] Heamophilus Influenza 2015-11-13 Completed Uni versity of B 00:00:00 [facility] Heamophilus Influenza 2015-11-13 Completed Uni versity of B 00:00:00 [facility] Heamophilus Influenza 2015-11-13 Completed Uni versity of B 00:00:00 [facility] Heamophilus Influenza 2015-11-13 Completed Uni versity of B 00:00:00 [facility] Heamophilus Influenza 2015-11-13 Completed Uni versity of B 00:00:00 [facility] Heamophilus Influenza 2015-11-13 Completed Uni versity of B 00:00:00 [facility] Heamophilus Influenza 2015-11-13 Completed Uni versity of B 00:00:00 [facility] Heamophilus Influenza 2015-11-13 Completed Uni versity of B 00:00:00 [facility] Heamophilus Influenza 2015-11-13 Completed Uni versity of B 00:00:00 [facility] Heamophilus Influenza 2015-11-13 Completed Uni versity of B 00:00:00 [facility] Heamophilus Influenza 2015-11-13 Completed Uni versity of B 00:00:00 [facility] Heamophilus Influenza 2015-11-13 Completed Uni versity of B 00:00:00 [facility] Heamophilus Influenza 2015-11-13 Completed Uni versity of B 00:00:00 [facility] Heamophilus Influenza 2015-11-13 Completed Uni versity of B 00:00:00 [facility] Heamophilus Influenza 2015-11-13 Completed Uni versity of B 00:00:00 [facility] Heamophilus Influenza 2015-11-13 Completed Uni versity of B 00:00:00 [facility] Heamophilus Influenza 2015-11-13 Completed Uni versity of B 00:00:00 [facility] Heamophilus Influenza 2015-11-13 Completed Uni versity of B 00:00:00 [facility] Heamophilus Influenza 2015-11-13 Completed Uni versity of B 00:00:00 [facility] Heamophilus Influenza 2015-11-13 Completed Uni versity of B 00:00:00 [facility] Heamophilus Influenza 2015-11-13 Completed Uni versity of B 00:00:00 [facility] Heamophilus Influenza 2015-11-13 Completed Uni versity of B 00:00:00 [facility] Heamophilus Influenza 2015-11-13 Completed Uni versity of B 00:00:00 [facility] Heamophilus Influenza 2015-11-13 Completed Uni versity of B 00:00:00 [facility] Heamophilus Influenza 2015-11-13 Completed Uni versity of B 00:00:00 [facility] Heamophilus Influenza 2015-11-13 Completed Uni versity of B 00:00:00 [facility] Heamophilus Influenza 2015-11-13 Completed Uni versity of B 00:00:00 [facility] Heamophilus Influenza 2015-11-13 Completed Uni versity of B 00:00:00 [facility] Heamophilus Influenza 2015-11-13 Completed Uni versity of B 00:00:00 [facility] Heamophilus Influenza 2015-11-13 Completed Uni versity of B 00:00:00 [facility] Heamophilus Influenza 2015-11-13 Completed Uni versity of B 00:00:00 [facility] Heamophilus Influenza 2015-11-13 Completed Uni versity of B 00:00:00 [facility] Heamophilus Influenza 2015-11-13 Completed Uni versity of B 00:00:00 [facility] Heamophilus Influenza 2015-11-13 Completed Uni versity of B 00:00:00 [facility] Heamophilus Influenza 2015-11-13 Completed Uni versity of B 00:00:00 [facility] Heamophilus Influenza 2015-11-13 Completed Uni versity of B 00:00:00 [facility] Heamophilus Influenza 2015-11-13 Completed Uni versity of B 00:00:00 [facility] Heamophilus Influenza 2015-11-13 Completed Uni versity of B 00:00:00 [facility] Heamophilus Influenza 2015-11-13 Completed Uni versity of B 00:00:00 [facility] Heamophilus Influenza 2015-11-13 Completed Uni versity of B 00:00:00 [facility] Heamophilus Influenza 2015-11-13 Completed Uni versity of B 00:00:00 [facility] Heamophilus Influenza 2015-11-13 Completed Uni versity of B 00:00:00 [facility] Heamophilus Influenza 2015-11-13 Completed Uni versity of B 00:00:00 [facility] Heamophilus Influenza 2015-11-13 Completed Uni versity of B 00:00:00 [facility] Heamophilus Influenza 2015-11-13 Completed Uni versity of B 00:00:00 [facility] Heamophilus Influenza 2015-11-13 Completed Uni versity of B 00:00:00 [facility] Heamophilus Influenza 2015-11-13 Completed Uni versity of B 00:00:00 [facility] Heamophilus Influenza 2015-11-13 Completed Uni versity of B 00:00:00 [facility] Heamophilus Influenza 2015-11-13 Completed Uni versity of B 00:00:00 [facility] Heamophilus Influenza 2015-11-13 Completed Uni versity of B 00:00:00 [facility] Heamophilus Influenza 2015-11-13 Completed Uni versity of B 00:00:00 [facility] Heamophilus Influenza 2015-11-13 Completed Uni versity of B 00:00:00 [facility] Heamophilus Influenza 2015-11-13 Completed Uni versity of B 00:00:00 [facility] Heamophilus Influenza 2015-11-13 Completed Uni versity of B 00:00:00 [facility] Heamophilus Influenza 2015-11-13 Completed Uni versity of B 00:00:00 [facility] Heamophilus Influenza 2015-11-13 Completed Uni versity of B 00:00:00 [facility] Heamophilus Influenza 2015-11-13 Completed Uni versity of B 00:00:00 [facility] Meningococcal 2015-11-12 Completed University of Polysaccharide 00:00:00 [...] Meningococcal 2015-11-12 Completed [facility] Polysaccharide 00:00:00 [facility] (groups A, C, Y and Branc h W-135) conjugate vaccine (MCV4P) Meningococcal 2015-11-12 Completed University of Polysaccharide 00:00:00 [facility] (groups A, C, Y and Branc h W-135) conjugate vaccine (MCV4P) TDAP 2015-10-31 Completed University of 00:00:00 [facility] TDAP 2015-10-31 Completed University of 00:00:00 [facility] TDAP 2015-10-31 Completed University of 00:00:00 [facility] TDAP 2015-10-31 Completed University of 00:00:00 [facility] TDAP 2015-10-31 Completed University of 00:00:00 [facility] TDAP 2015-10-31 Completed University of 00:00:00 [facility] TDAP 2015-10-31 Completed University of 00:00:00 [facility] TDAP 2015-10-31 Completed University of 00:00:00 [facility] TDAP 2015-10-31 Completed University of 00:00:00 [facility] TDAP 2015-10-31 Completed University of 00:00:00 [facility] TDAP 2015-10-31 Completed University of 00:00:00 [facility] TDAP 2015-10-31 Completed University of 00:00:00 [facility] TDAP 2015-10-31 Completed University of 00:00:00 [facility] TDAP 2015-10-31 Completed University of 00:00:00 [facility] TDAP 2015-10-31 Completed University of 00:00:00 [facility] TDAP 2015-10-31 Completed University of 00:00:00 [facility] TDAP 2015-10-31 Completed University of 00:00:00 [facility] TDAP 2015-10-31 Completed University of 00:00:00 [facility] TDAP 2015-10-31 Completed University of 00:00:00 [facility] TDAP 2015-10-31 Completed University of 00:00:00 [facility] TDAP 2015-10-31 Completed University of 00:00:00 [facility] TDAP 2015-10-31 Completed University of 00:00:00 [facility] TDAP 2015-10-31 Completed University of 00:00:00 [facility] TDAP 2015-10-31 Completed University of 00:00:00 [facility] TDAP 2015-10-31 Completed University of 00:00:00 [facility] TDAP 2015-10-31 Completed University of 00:00:00 [facility] TDAP 2015-10-31 Completed University of 00:00:00 [facility] TDAP 2015-10-31 Completed University of 00:00:00 [facility] TDAP 2015-10-31 Completed University of 00:00:00 [facility] TDAP 2015-10-31 Completed University of 00:00:00 [facility] TDAP 2015-10-31 Completed University of 00:00:00 [facility] TDAP 2015-10-31 Completed University of 00:00:00 [facility] TDAP 2015-10-31 Completed University of 00:00:00 [facility] TDAP 2015-10-31 Completed University of 00:00:00 [facility] TDAP 2015-10-31 Completed University of 00:00:00 [facility] TDAP 2015-10-31 Completed University of 00:00:00 [facility] TDAP 2015-10-31 Completed University of 00:00:00 [facility] TDAP 2015-10-31 Completed University of 00:00:00 [facility] TDAP 2015-10-31 Completed University of 00:00:00 [facility] TDAP 2015-10-31 Completed University of 00:00:00 [facility] TDAP 2015-10-31 Completed University of 00:00:00 [facility] TDAP 2015-10-31 Completed University of 00:00:00 [facility] TDAP 2015-10-31 Completed University of 00:00:00 [facility] TDAP 2015-10-31 Completed University of 00:00:00 [facility] TDAP 2015-10-31 Completed University of 00:00:00 [facility] TDAP 2015-10-31 Completed University of 00:00:00 [facility] TDAP 2015-10-31 Completed University of 00:00:00 [facility] TDAP 2015-10-31 Completed University of 00:00:00 [facility] TDAP 2015-10-31 Completed University of 00:00:00 [facility] TDAP 2015-10-31 Completed University of 00:00:00 [facility] TDAP 2015-10-31 Completed University of 00:00:00 [facility] TDAP 2015-10-31 Completed University of 00:00:00 [facility] TDAP 2015-10-31 Completed University of 00:00:00 [facility] TDAP 2015-10-31 Completed University of 00:00:00 [facility] TDAP 2015-10-31 Completed University of 00:00:00 [facility] TDAP 2015-10-31 Completed University of 00:00:00 [facility] TDAP 2015-10-31 Completed University of 00:00:00 [facility] TDAP 2015-10-31 Completed University of 00:00:00 [facility] TDAP 2015-10-31 Completed University of 00:00:00 [facility] TDAP 2015-10-31 Completed University of 00:00:00 [facility] TDAP 2015-10-31 Completed University of 00:00:00 [facility] TDAP 2015-10-31 Completed University of 00:00:00 [facility] TDAP 2015-10-31 Completed University of 00:00:00 [facility] TDAP 2015-10-31 Completed University of 00:00:00 [facility] TDAP 2015-10-31 Completed University of 00:00:00 [facility] TDAP 2015-10-31 Completed University of 00:00:00 [facility] TDAP 2015-10-31 Completed University of 00:00:00 [facility] TDAP 2015-10-31 Completed University of 00:00:00 [facility] TDAP 2015-10-31 Completed University of 00:00:00 [facility] TDAP 2015-10-31 Completed University of 00:00:00 [facility] TDAP 2015-10-31 Completed University of 00:00:00 [facility] TDAP 2015-10-31 Completed University of 00:00:00 [facility] TDAP 2015-10-31 Completed University of 00:00:00 [facility] TDAP 2015-10-31 Completed University of 00:00:00 [facility] TDAP 2015-10-31 Completed University of 00:00:00 [facility] TDAP 2015-10-31 Completed University of 00:00:00 [facility] TDAP 2015-10-31 Completed University of 00:00:00 [facility] TDAP 2015-10-31 Completed University of 00:00:00 [facility] TDAP 2015-10-31 Completed University of 00:00:00 [facility] TDAP 2015-10-31 Completed University of 00:00:00 [facility] TDAP 2015-10-31 Completed University of 00:00:00 [facility] TDAP 2015-10-31 Completed University of 00:00:00 [facility] TDAP 2015-10-31 Completed University of 00:00:00 [facility] TDAP 2015-10-31 Completed University of 00:00:00 [facility] TDAP 2015-10-31 Completed University of 00:00:00 [facility] TDAP 2015-10-31 Completed University of 00:00:00 [facility] TDAP 2015-10-31 Completed University of 00:00:00 [facility] TDAP 2015-10-31 Completed University of 00:00:00 [facility] TDAP 2015-10-31 Completed University of 00:00:00 [facility] TDAP 2015-10-31 Completed University of 00:00:00 [facility] TDAP 2015-10-31 Completed University of 00:00:00 [facility] TDAP 2015-10-31 Completed University of 00:00:00 [facility] TDAP 2015-10-31 Completed University of 00:00:00 [facility] TDAP 2015-10-31 Completed University of 00:00:00 [facility] TDAP 2015-10-31 Completed University of 00:00:00 [facility] TDAP 2015-10-31 Completed University of 00:00:00 [facility] TDAP 2015-10-31 Completed University of 00:00:00 [facility] TDAP 2015-10-31 Completed University of 00:00:00 [facility] TDAP 2015-10-31 Completed University of 00:00:00 [facility] TDAP 2015-10-31 Completed University of 00:00:00 [facility] Pneumococcal 2014-04-01 Completed University o f Polysaccharide, [...] Source Heart rate 2022-10-29 21:30:00 91 /min [facility] Respiratory rate 2022-10-29 21:30:00 14 /min [facility] Oxygen saturation in 2022-10-29 21:30:00 98 /min [facility] Arterial blood by [facility] Pulse oximetry Branch Systolic blood 2022-10-29 20:21:00 125 mm[Hg] Univer sity of pressure [facility] Diastolic blood 2022-10-29 20:21:00 79 mm[Hg] Unive rsity of pressure [facility] Body temperature 2022-10-29 20:21:00 36.89 Melissa Univ ersity of [facility] Body height 2022-10-29 20:21:00 157.5 cm Universi ty of [facility] Body weight 2022-10-29 20:21:00 94.348 kg Universi ty of [facility] BMI 2022-10-29 20:21:00 38.04 kg/m2 Universi ty of [facility] Systolic blood 2022-10-27 15:21:00 91 mm[Hg] Univer sity of pressure [facility] Diastolic blood 2022-10-27 15:21:00 58 mm[Hg] Unive rsity of pressure [facility] Heart rate 2022-10-27 15:21:00 82 /min Universi ty of [facility] Body height 2022-10-27 15:21:00 157.5 cm Universi ty of [facility] Body weight 2022-10-27 15:21:00 94.394 kg Universi ty of [facility] BMI 2022-10-27 15:21:00 38.06 kg/m2 Universi ty of [facility] Oxygen saturation in 2022-10-27 15:21:00 95 /min University Arterial blood by [facility] Pulse oximetry Branch HEIGHT 2022-10-22 05:49:00 157.5 cm WEIGHT 2022-10-22 05:49:00 96.48 kg HEIGHT 2022-10-22 05:49:00 157.5 cm WEIGHT 2022-10-22 05:49:00 96.48 kg HEIGHT 2022-10-22 05:49:00 157.5 cm WEIGHT 2022-10-22 05:49:00 96.48 kg Systolic blood 2022-10-19 21:30:00 148 mm[Hg] Univer sity of pressure [facility] Diastolic blood 2022-10-19 21:30:00 89 mm[Hg] Unive rsity of pressure [facility] Heart rate 2022-10-19 21:30:00 115 /min Universi ty of [facility] Body temperature 2022-10-19 21:30:00 37.17 Melissa Univ ersity of [facility] Respiratory rate 2022-10-19 21:30:00 16 /min Univ ersity of [facility] Oxygen saturation in 2022-10-19 21:30:00 97 /min University of Arterial blood by [facility] P[facility] Body height 2022-10-19 04:03:00 172.7 cm Universi ty of [facility] Body weight 2022-10-19 04:03:00 98.884 kg Universi ty of [facility] BMI 2022-10-19 04:03:00 33.15 kg/m2 [facility] ty of [facility] Systolic blood 2022-10-18 16:13:00 102 mm[Hg] Univer sity of pressure [facility] Diastolic blood 2022-10-18 16:13:00 69 mm[Hg] Unive rsity of pressure [facility] Heart rate 2022-10-18 16:13:00 82 /min Universi ty of [facility] Body height 2022-10-18 16:13:00 157.5 cm Universi ty of [facility] Body weight 2022-10-18 16:13:00 98.884 kg Universi ty of [facility] BMI 2022-10-18 16:13:00 39.87 kg/m2 [facility] ty of [facility] Oxygen saturation in 2022-10-18 16:13:00 99 /min University of Arterial blood by [facility] Pulse oximetry Branch Systolic blood 2022-10-07 19:00:00 125 mm[Hg] Univer sity of pressure [facility] Diastolic blood 2022-10-07 19:00:00 78 mm[Hg] Unive rsity of pressure [facility] Heart rate 2022-10-07 19:00:00 85 /min Universi ty of [facility] Respiratory rate 2022-10-07 19:00:00 18 /min Univ ersity of [facility] Oxygen saturation in 2022-10-07 19:00:00 100 /min University of Arterial blood by [place] [facility] Body temperature 2022-10-07 17:09:00 37.28 Melissa Univ ersity of [facility] Body height 2022-10-07 17:09:00 157.5 cm Universi ty of [facility] Body weight 2022-10-07 17:09:00 102.059 kg [facility]i ty of [facility] BMI 2022-10-07 17:09:00 41.15 kg/m2 [facility] of [facility] Systolic blood 2022-10-07 14:03:00 119 mm[Hg] Univer sity of pressure [facility] Diastolic blood 2022-10-07 14:03:00 81 mm[Hg] Unive rsity of pressure [facility] Heart rate 2022-10-07 14:03:00 104 /min [facility] of [facility] Body temperature 2022-10-07 14:03:00 36.28 Melissa Univ ersity of [facility] Body height 2022-10-07 14:03:00 157.5 cm [facility] of [facility] Body weight 2022-10-07 14:03:00 102.377 kg [facility]i ty of [facility] BMI 2022-10-07 14:03:00 41.28 kg/m2 [facility] of [facility] Oxygen saturation in 2022-10-07 14:03:00 100 /min University of Arterial blood by [place] [facility] Pulse oxim[facility] Systolic blood 2022-09-03 17:29:00 97 mm[Hg] Univer sity of pressure [facility] Diastolic blood 2022-09-03 17:29:00 64 mm[Hg] Unive rsity of pressure [facility] Heart rate 2022-09-03 17:29:00 95 /min [facility]i ty of [facility] Body temperature 2022-09-03 17:29:00 37.17 Melissa Univ ers[facility] of [facility] Body height 2022-09-03 17:29:00 157.5 cm [facility]i ty of [facility] Body weight 2022-09-03 17:29:00 101.606 kg [facility]i ty of [facility] BMI 2022-09-03 17:29:00 40.97 kg/m2 [facility] ty of [facility] Oxygen saturation in 2022-09-03 17:29:00 96 /min [facility] of Arterial blood by [place] [facility] Systolic blood 2022-08-24 14:41:00 115 mm[Hg] Univer sity of pressure [facility] Diastolic blood 2022-08-24 14:41:00 77 mm[Hg] Unive rsity of pressure [facility] Heart rate 2022-08-24 14:41:00 105 /min [facility]i ty of [facility] Body temperature 2022-08-24 14:41:00 36.61 Melissa Univ ersity of [facility] Body weight 2022-08-24 14:41:00 102.967 kg [facility]i ty of [facility] BMI 2022-08-24 14:41:00 41.52 kg/m2 [facility] of [facility] Systolic blood 2022-07-27 13:03:00 112 mm[Hg] Univer sity of pressure [facility] Diastolic blood 2022-07-27 13:03:00 75 mm[Hg] Unive rsity of pressure [facility] Heart rate 2022-07-27 13:03:00 98 /min [facility]i [facility] of [facility] Body temperature 2022-07-27 13:03:00 36.83 Melissa Univ ersity of [facility] Body weight 2022-07-27 13:03:00 102.967 kg [facility]i ty of [facility] BMI 2022-07-27 13:03:00 41.52 kg/m2 [facility] of [facility] Oxygen saturation in 2022-07-27 13:03:00 94 /min University of Arterial blood by [place] [facility] Pulse oximetry [facility] Systolic blood 2022-06-17 15:45:00 104 mm[Hg] Univer sity of pressure [facility] Diastolic blood 2022-06-17 15:45:00 69 mm[Hg] Unive rsity of pressure [facility] Heart rate 2022-06-17 15:45:00 97 /min [facility]i ty of [facility] Body height 2022-06-17 15:45:00 157.5 cm [facility]i ty of [facility] Body weight 2022-06-17 15:45:00 101.878 kg [facility] BMI 2022-06-17 15:45:00 41.08 kg/m2 [facility] Oxygen saturation in 2022-06-17 15:45:00 98 /min [facility] of Arterial blood by [place] [facility] cipriano Pulse oximetry Branch Systolic blood 2022-06-15 13:01:00 101 mm[Hg] Univer sity of [facility] Diastolic blood 2022-06-15 13:01:00 68 mm[Hg] Unive rsity of [facility] Heart rate 2022-06-15 13:01:00 74 /min [facility] Body temperature 2022-06-15 13:01:00 36.89 Melissa [facility] Body weight 2022-06-15 13:01:00 102.967 kg [facility] BMI 2022-06-15 13:01:00 41.52 kg/m2 [facility] Systolic blood 2022-03-27 12:44:00 131 mm[Hg] Univer [facility] Diastolic blood 2022-03-27 12:44:00 83 mm[Hg] Unive rsity of [facility] Heart rate 2022-03-27 12:44:00 102 /min [facility] Body temperature 2022-03-27 12:44:00 37.11 Melissa [facility] Respiratory rate 2022-03-27 12:44:00 18 /min [facility] Body height 2022-03-27 12:44:00 157.5 cm [facility] Body weight 2022-03-27 12:44:00 96.616 kg [facility] BMI 2022-03-27 12:44:00 38.96 kg/m2 [facility] Oxygen saturation in 2022-03-27 12:44:00 98 /min [facility] of Arterial blood by [facility] Pulse oximetry Branch Systolic blood 2022-03-02 15:40:00 113 mm[Hg] Univer sity of [facility] Diastolic blood 2022-03-02 15:40:00 72 mm[Hg] Unive rsity of [facility] Heart rate 2022-03-02 15:40:00 82 /min [facility] Respiratory rate 2022-03-02 15:40:00 16 /min [facility] Oxygen saturation in 2022-03-02 15:40:00 97 /min [facility] Arterial blood by [place] [facility] Pulse oximetry Branch Body temperature 2022-03-02 15:23:00 36.28 Melissa [facility] Body weight 2022-02-24 17:00:00 100.245 kg [facility] BMI 2022-02-24 17:00:00 40.42 kg/m2 Universi [facility] Systolic blood 2022-03-02 15:25:00 98 mm[Hg] Univer sity of [facility] Diastolic blood 2022-03-02 15:25:00 55 mm[Hg] Unive rsity [facility] Heart rate 2022-03-02 15:25:00 85 /min Universi [facility] Respiratory rate 2022-03-02 15:25:00 18 /min [facility] Oxygen saturation in 2022-03-02 15:25:00 100 /min [facility] Arterial blood by [facility] Pulse oximetry [place] Body temperature 2022-03-02 15:23:00 36.28 Melissa [facility] Body weight 2022-02-24 17:00:00 100.245 kg [facility] BMI 2022-02-24 17:00:00 40.42 kg/m2 [facility] Systolic blood 2022-10-25 10:57:00 120 mm[Hg] [facility] Diastolic blood 2022-10-25 10:57:00 63 mm[Hg] [facility] Heart rate 2022-10-25 10:57:00 92 /min [facility] Body temperature 2022-10-25 10:57:00 35.61 Melissa [facility] Respiratory rate 2022-10-25 10:57:00 18 /min [facility] Oxygen saturation in 2022-10-25 10:57:00 100 /min [facility] Arterial blood by Medical nter Pulse oximetry Body height 2022-10-22 05:49:00 157.5 cm [facility] Body weight 2022-10-22 05:49:00 96.48 kg [facility] BMI 2022-10-22 05:49:00 38.90 kg/m2 [facility] Procedures Procedure Date / Time Performing Source Performed Clinician HB ABO GROUPING 2022-10-29 Shena Perea [place] [id number] [facility] COMP. METABOLIC PANEL (11240) 2022-10-29 Shena Perea [facility] of 20:52:00 [facility] CBC WITH DIFF 2022-10-29 Shena Perea [place] of 20:52:00 [facility] CONSENT/REFUSAL FOR DIAGNOSIS AND 2022-10-29 [facility] 20:01:41 Unassigned, No [facility] BASIC METABOLIC PANEL$W/EGFR-Q 2022-10-27 AraujoOsmar U niversity of 16:36:00 [facility] POCT-GLUCOSE METER 2022-10-25 Ali, Hiba Tereso [facility] 11:05:00 [facility] POCT-GLUCOSE METER 2022-10-25 Ali, Hiba Tereso [facility] 07:47:00 [facility] BASIC METABOLIC PANEL 2022-10-25 Nalam, Livia Beth [facility] 03:35:00 [facility] MAGNESIUM 2022-10-25 Nalam, Livia Beth [facility] 03:35:00 [facility] CBC W/PLT COUNT & AUTO 2022-10-25 Nalam, Livia Beth [facility] DIFFERENTIAL 03:35:00 [facility] RETICULOCYTE COUNT 2022-10-25 Eziokwu, [facility]olisa [facility] 03:35:00 [facility] LACTATE DEHYDROGENASE (LDH) 2022-10-25 Eziokwu, [facility]olisa [facility] 03:35:00 [facility] HAPTOGLOBIN 2022-10-25 Nalam, Livia Beth [facility] 03:35:00 [facility] HEPATIC FUNCTION PANEL 2022-10-25 Nalam, Livia Beth [facility] 03:35:00 [facility] CBC W/PLT COUNT & AUTO 2022-10-25 Nalam, Livia Beth [facility] DIFFERENTIAL 03:35:00 [facility] POCT-GLUCOSE METER 2022-10-24 Ali, Hiba Tereso [facility] 23:11:00 [facility] POCT-GLUCOSE METER 2022-10-24 Ali, Hiba Tereso [facility] 17:33:00 [facility] POCT-GLUCOSE METER 2022-10-24 Ali, Hiba Tereso [facility] 11:39:00 [facility] POCT-GLUCOSE METER 2022-10-24 Ali, Hiba Tereso [facility] 07:36:00 [facility] BASIC METABOLIC PANEL 2022-10-24 Nalam, Livia Beth [facility] 03:12:00 [facility] MAGNESIUM 2022-10-24 Nalam, Livia Beth [facility] 03:12:00 [facility] CBC W/PLT COUNT & AUTO 2022-10-24 Nalam, Livia Beth [facility] DIFFERENTIAL 03:12:00 [facility] RETICULOCYTE COUNT 2022-10-24 Eziokwu, Akaolisa [facility] 03:12:00 [facility] LACTATE DEHYDROGENASE (LDH) 2022-10-24 Eziokwu, [facility]olisa [facility] 03:12:00 [facility] C-REACTIVE PROTEIN 2022-10-24 Nalam, Livia Beth [facility] 03:12:00 [facility] HAPTOGLOBIN 2022-10-24 Nalam, Livia Beth [facility] 03:12:00 [facility] HEPATIC FUNCTION PANEL 2022-10-24 Nalam, Livia Beth [facility] 03:12:00 [facility] CBC W/PLT COUNT & AUTO 2022-10-24 Nalam, Livia Beth [facility] DIFFERENTIAL 03:12:00 [facility] POCT-GLUCOSE METER 2022-10-23 Ali, Hiba Tereso [facility] 21:50:00 [facility] POCT-GLUCOSE METER 2022-10-23 Ali, Hiba Tereso [facility] 17:24:00 [facility] ANTIBODY IDENTIFICATION 2022-10-23 Nalam, Livia Beth [facility] 12:29:00 [facility] POCT-GLUCOSE METER 2022-10-23 Ali, Hiba Tereso [facility] 12:20:00 [facility] POCT-GLUCOSE METER 2022-10-23 Ali, Hiba Tereso [facility] 09:26:00 [facility] BASIC METABOLIC PANEL 2022-10-23 Nalam, Livia Beth [facility] 04:28:00 [facility] MAGNESIUM 2022-10-23 Nalam, Livia Beth [facility] 04:28:00 Medical Center CBC W/PLT COUNT & AUTO 2022-10-23 Nalam, Livia Beth [facility] DIFFERENTIAL 04:28:00 [facility] RETICULOCYTE COUNT 2022-10-[address] [facility] 04:28:00 [facility] LACTATE DEHYDROGENASE (LDH) 2022-10-23 Robbinkwu, Akaoingasa [facility] 04:28:00 [facility] C-REACTIVE PROTEIN 2022-10-23 Nalam, Livia Beth [facility] 04:28:00 [facility] FERRITIN 2022-10-23 Nalam, Livia Beth [facility] 04:28:00 [facility] HAPTOGLOBIN 2022-10-23 Nalam, Livia Beth [facility] 04:28:00 [facility] HEPATIC FUNCTION PANEL 2022-10-23 Nalam, Livia Beth [facility] 04:28:00 [facility] HEMOGLOBIN A1C 2022-10-23 Nalam, Livia Beth [facility] 04:28:00 [facility] CBC W/PLT COUNT & AUTO 2022-10-23 Nalam, Livia Beth [facility] DIFFERENTIAL 04:28:00 [facility] ABORH, MANUAL 2022-10-[address] [facility] 02:02:00 [facility] POCT-GLUCOSE METER 2022-10-22 Nalam, Livia Beth [facility] 22:41:00 [facility] XR ABDOMEN/KUB 1 VIEW PORTABLE 2022-10-22 Nalam, Livia Beth [facility] 17:23:00 [facility] D-DIMER 2022-10-22 Nalam, Livia Beth [facility] 16:29:00 [facility] CBC W/PLT COUNT & AUTO 2022-10-22 Nalam, Livia Beth [facility] DIFFERENTIAL 11:33:00 [facility] RETICULOCYTE COUNT 2022-10-22 Nalam, Livia Beth [facility] 11:33:00 [facility] PERIPHERAL BLOOD SMEAR - HOLD ONLY 2022-10-22 Nalam, Livia Beth [facility] 11:33:00 [facility] DIRECT AHG (ARNOLD)/DIRECT SONDRA 2022-10-22 Nalam, Livia Beth [facility] 11:33:00 [facility] Center TYPE AND SCREEN, AUTOMATED 2022-10-22 Nalam, Livia Beth [facility] 11:33:00 [facility] CBC W/PLT COUNT & AUTO 2022-10-22 Nalam, Livia Beth [facility] DIFFERENTIAL 11:33:00 [facility] COMPREHENSIVE METABOLIC PANEL 2022-10-22 Nalam, Livia Beth [facility] 11:32:00 [facility] MAGNESIUM 2022-10-22 Nalam, Livia Beth [facility] 11:32:00 [facility] LACTATE DEHYDROGENASE (LDH) 2022-10-22 Nalam, Livia Beth [facility] 11:32:00 [facility] BILIRUBIN, DIRECT 2022-10-22 Nalam, Livia Beth [facility] 11:32:00 [facility] IRON, TIBC, % SAT. (WITHOUT 2022-10-22 Nalam, Livia Beth [facility] FERRITIN) 11:32:00 [facility] FERRITIN 2022-10-22 Nalam, Livia Beth [facility] 11:32:00 [facility] VITAMIN B12 2022-10-22 Nalam, Livia Beth [facility] 11:32:00 [facility] HAPTOGLOBIN 2022-10-22 Nalam, Livia Beth [facility] 11:32:00 [facility] FIBRINOGEN 2022-10-22 Nalam, Livia Beth [facility] 11:31:00 Medical Center PT/APTT 2022-10-22 Nalam, Livia Beth [facility] 11:31:00 [facility] EKG-SCANNED 2022-10-22 Provider, Default [facility] 00:00:00 Scanning [facility] COMP. METABOLIC PANEL (96347) 2022-10-19 Tina Curtis Un iversity of 11:22:00 [facility] GIARDIA CRYPTOSPORIDIUM AG SCR 2022-10-19 Tina Curtis U niversity of 05:09:00 [facility] FECAL PATHOGENS BY PCR 2022-10-19 Tina Curtis Universit y of 05:09:00 [facility] CT ABDOMEN PELVIS W CONTRAST 2022-10-18 Kemal Myers U niversity of 23:00:00 F [facility] POCT TEST 2022-10-18 [facility] of 22:15:00 F [facility] LIPASE 2022-10-18 [facility] of 22:08:00 F [facility] FREE T4 2022-10-18 [facility] of 22:08:00 [facility] THYROID STIMULATING HORMONE 2022-10-18 [facility] ersity of 22:08:00 [facility] COMP. METABOLIC PANEL ([id number]) 2022-10-18 [facility] of 22:08:00 [facility] CBC WITH DIFF 2022-10-18 [facility] of 22:08:00 [facility] URINALYSIS 2022-10-18 [facility] 22:08:00 [facility] CONSENT/REFUSAL FOR DIAGNOSIS AND 2022-10-18 [facility] TREATMENT 20:52:07 Unassigned, No [facility] URINE CULTURE 2022-10-18 [facility] 17:46:[address] [facility] BASIC METABOLIC PANEL (NA, K, CL, 2022-10-18 [place] [address], GLUCOSE, BUN, CREATININE, CA) 17:24:[address] [facility] POCT URINALYSIS AUTO 2022-10-18 [facility] 16:15:[address] [facility] DISCLOSURE AND CONSENT, MEDICAL 2022-10-18 [facility] of AND SURGICAL PROCEDURES 06:01:00 Unassigned, No [facility] HOSPITAL ADMISSION 2022-10-18 [facility] of 06:01:00 Unassigned, No [facility] LACTIC ACID WHOLE BLOOD 2022-10-07 Destiny Oneill [facility] of 18:28:00 [facility] LIPASE 2022-10-07 Destiny Oneill of 18:16:00 [facility] COMP. METABOLIC PANEL ([id number]) 2022-10-07 Destiny Oneill iversity of 18:16:00 [facility] CBC WITH DIFF 2022-10-07 Destiny Oneill of 18:16:00 [facility] URINALYSIS 2022-10-07 Destiny Oneill of 18:16:00 [facility] CONSENT/REFUSAL FOR DIAGNOSIS AND 2022-10-07 [facility] 16:58:17 Unassigned, No [facility] POCT HEMOGLOBIN A1C TEST 2022-08-24 [facility] DME/SUPPLY JUSTIFICATION 2022-08-05 [facility] of 06:01:00 Unassigned, No [facility] SARS-COV-2 COVID-19 CHRISTELLE-SUCROSE 2022-07-27 Tray Jolly [place] of VACCINE 12 YRS+, BIVALENT 0.3ML, 13:13:29 [facility] IM, (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) Br anch MEDICATION CORRESPONDENCE 2022-07-19 [facility] of 05:01:00 Unassigned, No [facility] DISABILITY/FMLA 2022-07-01 [facility] 05:01:00 Unassigned, No [facility] MR THORACIC SPINE WO CONTRAST 2022-06-30 Brunilda, Crystal Un iversity of 16:22:01 [facility] MR CERVICAL SPINE WO CONTRAST 2022-06-30 Brunilda, Crystal Un iversity of 16:20:35 [facility] CONSENT/REFUSAL FOR DIAGNOSIS AND 2022-06-30 [facility] 14:32:21 Unassigned, No [facility] CONSENT/REFUSAL FOR DIAGNOSIS AND 2022-06-30 [facility] 14:32:20 Unassigned, No [facility] INSURANCE CORRESPONDENCE 2022-06-17 [facility] of 05:01:00 Unassigned, No [facility] POWER OF EDUCATION AND TRAINING COORDINATOR 2022-06-01 [facility] 05:01:00 Unassigned, No [facility] POWER OF EDUCATION AND TRAINING COORDINATOR 2022-05-13 [facility] 05:01:00 Unassigned, No [facility] DME/SUPPLY JUSTIFICATION 2022-05-06 [facility] of 05:01:00 Unassigned, No [facility] EMG/NCV 2022-04-08 Brunilda [facility] 14:43:00 [facility] CONSENT/REFUSAL FOR DIAGNOSIS AND 2022-03-27 [facility] 12:40:53 Unassigned, No [facility] PHYSICIAN ORDERS 2022-03-19 Doctor [facility] of 05:01:00 Unassigned, No [facility] COLONOSCOPY (ENDO) 2022-03-02 Rik [facility] of 14:43:32 [facility] COLONOSCOPY (ENDO) 2022-03-02 [facility] of 14:43:32 [facility] COLONOSCOPY 2022-03-02 Willi [facility] of 14:02:00 [facility] ESOPHAGOGASTRODUODENOSCOPY 2022-03-02 Willi [facility] ersity of 14:02:00 [facility] EGD (ENDO) 2022-03-02 [facility] of 13:53:24 [facility] EGD (ENDO) 2022-03-02 [facility] of 13:53:24 [facility] POCT GLUCOSE(AGE >30DAYS) 2022-03-02 [facility] ersity of 12:59:00 [facility] POCT GLUCOSE(AGE >30DAYS) 2022-03-02 [facility] ersity of 12:59:00 [facility] POCT GLUCOSE (AUTOMATED) 2022-03-02 [facility] 12:58:00 [facility] POCT GLUCOSE (AUTOMATED) 2022-03-02 Willi [facility] sity of 12:58:00 [facility] POCT TEST 2022-03-02 [facility] of 12:48:00 [facility] POCT TEST 2022-03-02 [facility] of 12:48:00 [facility] DAY SURGERY - ADC 2022-03-02 [facility] of 05:01:00 Unassigned, No [facility] DME/SUPPLY JUSTIFICATION 2022-01-04 [facility] it of 05:01:00 Unassigned, No [facility] DME/SUPPLY JUSTIFICATION 2022-01-04 Doctor [facility] ity of 05:01:00 Unassigned, No [facility] DISCLOSURE AND CONSENT, MEDICAL 2021-12-28 [facility] of AND SURGICAL PROCEDURES 05:01:00 Unassigned, No [facility] dical Name Branch DISCLOSURE AND CONSENT, MEDICAL 2021-12-28 [facility] of AND SURGICAL PROCEDURES 05:01:00 Unassigned, No [facility] dical Name Branch Plan of Care Planned Activity Planned Date Details Comments Source Future Scheduled 2032-03-02 Screening for malignant [facility] Test 00:00:00 neoplasm of colon Medical Ce nter (procedure) [code = 815939240] Future Scheduled 2032-03-02 Screening for malignant [facility] Test 00:00:00 neoplasm of colon Medical Ce nter (procedure) [code = 430404603] Future Scheduled 2032-03-02 Screening for malignant [facility] Test 00:00:00 neoplasm of colon Medical Ce nter (procedure) [code = 493719642] Future Scheduled 2032-03-02 Screening for malignant [facility] Test 00:00:00 neoplasm of colon Medical Ce nter (procedure) [code = 264919837] Future Scheduled 2029-08-10 DTAP/TDAP/TD VACCINES [facility] 00:00:00 (3 - Td or Tdap) [code Medic al Center = DTAP/TDAP/TD VACCINES (3 - Td or Tdap)] Future Scheduled 2029-08-10 DTAP/TDAP/TD VACCINES [facility] 00:00:00 (3 - Td or Tdap) [code Medic al Center = DTAP/TDAP/TD VACCINES (3 - Td or Tdap)] Future Scheduled 2023-10-[address] [facility] Test 00:00:00 Counseling and Medical Cente r Screening (12+) [code = Tobacco Cessation Counseling and Screening (12+)] Future Scheduled 2023-10-[address] [facility] Test 00:00:00 Counseling and Medical Cente r Screening (12+) [code = Tobacco Cessation Counseling and Screening (12+)] Future Scheduled 2022-09-26 Medicare IPPE (WELCOME [facility] 00:[facility]00 TO MEDICARE) [code = Medical Center Medicare IPPE (WELCOME TO MEDICARE)] Future Scheduled 2022-09-26 Medicare IPPE (WELCOME [facility] 00:00:00 TO MEDICARE) [code = Medical Center Medicare IPPE (WELCOME TO MEDICARE)] Future Scheduled 2018 Lipid panel (procedure) [facility] Test 00:00:00 [code = 23067340] Medical Ce nter Future Scheduled 2018 Lipid panel (procedure) [facility] Test 00:00:00 [code = 28648799] Medical Ce nter Future Scheduled 1994 Screening for malignant [facility] Test 00:00:00 neoplasm of cervix Medical C enter (procedure) [code = 274422495] Future Scheduled 1994 Screening for malignant [facility] Test 00:00:00 neoplasm of cervix Medical C enter (procedure) [code = 525650131] Future Scheduled 1991 HEPATITIS C SCREENING [facility] 00:00:00 [code = HEPATITIS C Medical Center SCREENING] Future Scheduled 1991 HEPATITIS C [facility] 00:00:00 [code = HEPATITIS C Medical Center SCREENING] Future Scheduled 1973 CT Colonography (combo) [facility] Test 00:00:00 [code = CT Colonography Medi [facility] Center (combo)] Future Scheduled 1973 Screening for malignant [facility] Test 00:00:00 neoplasm of colon Medical Ce nter (procedure) [code = 318315252] Future Scheduled 1973 Screening for malignant [facility] Test 00:00:00 neoplasm of colon Medical Ce nter (procedure) [code = 965928932] Future Scheduled 1973 Sigmoidoscopy [code = [facility] Sigmoidoscopy] Medical Cente r Future Scheduled 1973 CT Colonography (combo) [facility] Test 00:00:00 [code = CT Colonography Medi cipriano Center (combo)] Future Scheduled 1973 Screening for malignant [facility] Test 00:00:00 neoplasm of colon Medical Ce nter (procedure) [code = 202830458] Future Scheduled 1973 Screening for malignant [facility] Test 00:00:00 neoplasm of colon Medical Ce nter (procedure) [code = 839147120] Future Scheduled 1973 Sigmoidoscopy [code = [facility] 00:[facility] Sigmoidoscopy] Medical Cente r Encounters Start End Encounter Admission Attending Care Care Encounter Source Date/Time Date/Time Type Type Clinicians Facility Department ID 2022-02-16 Outpatient R IVETT MÁRQUEZ [id number] Univers 10:29:45 CECILE flores [facility] 2021-12-01 Outpatient Brock MÁRQUEZ [facility] [id number] Univers 13:05:09 CECILE flores [facility] 2021-11-04 Outpatient Brock WILLI [facility] [id number] Univers 15:43:22 CECILE ity [facility] 2021-07-27 Emergency [facility] [id number] Univers 19:11:28 ity of [facility] 2021-07-27 Emergency [facility] [id number] Univers 10:12:30 ity of [facility] 2021-07-27 Emergency [facility] [id number] Univers 06:35:13 ity of [facility] 2021-07-27 Emergency [facility] [id number] Univers 04:01:19 ity of [facility] 2021-07-26 Emergency [facility] [id number] Univers 12:06:22 ity of [facility] 2021-07-26 Emergency [facility] [id number] Univers [facility]:43[facility] 2023-02-22 Outpatient Brock JOLLY [facility] [id number] Univers 09:15:00 09:15:00 TRAY [facility] 2022-11-24 2022-11-24 Outpatient Brock JOLLY [facility] [id number] Univers 09:45:00 09:45:00 TRAY [facility] 2022-11-04 2022-11-04 [facility] [id number] Univers 00:00:00 00:00:00 [facility] [id number] it y of Scotty GREGORIO [id number] Emanuel as JOLLY?BLEA [id number] [address] MEDICAL OFFICE BUILDING 2022-11-01 2022-11-01 Outpatient Brock JOLLY [facility] [id number] Univers 14:30:00 14:30:00 TRAY [facility] 2022-11-01 2022-11-01 [facility] [id number] Univers 00:00:00 00:00:00 Tray HEALTH [id number] it y of Edward [place] [id number] Emanuel as JOLLY?BLEA [id number] Id gabi [address] MEDICAL OFFICE [facility] 2022-10-29 2022-10-29 Emergency [facility] E[facility] [id number] Univers 14:24:00 16:45:00 SHENA ity of [facility] 2022-10-29 2022-10-29 Emergency [facility] [id number] Univers 14:24:00 16:45:00 Shena [facility] [id number] ity of [place] [id number] [facility] [id number] [address] 2022-10-29 2022-10-29 Telephone [facility] [id number] Univers 00:00:00 00:00:00 Osmar HEALTH [id number] it y of [place] [id number] Emanuel as JOLLY?BLEA [id number] [address] MEDICAL OFFICE [facility] 2022-10-29 2022-10-29 Telephone [facility] [id number] Univers 00:00:00 00:00:00 Tray HEALTH 350.1.13.10 it y of Edward [place] 4.2.7.2.686 Emanuel as JOLLY?BLEA [id number] [address] OFFICE [facility] 2022-10-28 2022-10-28 Telephone [facility] 1.2.153.992 [id number] Univers 00:00:00 00:00:00 Osmar HEALTH 350.1.13.10 it y of [place] 4.2.7.2.686 Emanuel as JOLLY?BLEA [id number] [address] MEDICAL OFFICE [facility] 2022-10-28 2022-10-28 Patient [facility] 1.2.840.114 [id number] Univers 00:00:00 00:00:00 Outreach Vik HEALTH 350.1.13.10 i ty of [place] 4.2.7.2.686 [facility] [id number] [facility] PRIMARY & [facility] SPECIALTY CARE 2022-10-27 2022-10-27 Outpatient R VAN [facility] [id number] Univers 09:00:00 10:02:31 OSMAR flores of [facility] 2022-10-27 2022-10-27 Office [facility] 1.2.840.114 [id number] Univers 09:00:00 10:02:31 Visit Osmar THAPA 350.1.13.10 it y of [place] 4.2.7.2.686 Emanuel as JOLLY?BLEA [phone] [address] OFFICE BUILDING 2022-10-27 2022-10-27 Orders CLAU Araujo 1.2.840.114 [id number] Univers 00:00:00 00:00:00 Only Osmar GALICIA 350.1.13.10 it y of HOSPITAL 4.2.7.2.686 Emanuel as [id number] [place] [address] [place] 2022-10-26 2022-10-26 Telephone [facility] 1.2.772.652 [id number] Univers 00:00:00 00:00:00 Osmar THAPA 350.1.13.10 it [facility] 4.2.7.2.686 Emanuel as JOLLY?BLEA [phone] [address] MEDICAL OFFICE BUILDING 2022-10-22 2022-10-25 Hospital ER [facility] [id number] [facility] 05:22:00 14:24:00 Encounter Livia Brady [facility] 2022-10-22 2022-10-25 Hospital [facility] [id number] 05:22:00 14:24:00 Encounter Livia Brady [facility] 2022-10-22 2022-10-25 Inpatient [facility] [id number] [facility] 05:22:00 14:24:00 Med 2022-10-22 2022-10-22 Travel [facility] [id number] [facility] 00:[facility] 00:00:00 [facility] 2022-10-22 2022-10-22 Travel [facility] [id number] [facility] 00:00:00 00:00:00 [facility] 2022-10-21 2022-10-21 Outpatient R WILLI [facility] [id number] Univers 15:45:00 15:45:00 CECILE flores of [facility] 2022-10-21 2022-10-21 Telephone Rik [facility] 1.2.840.114 [id number] Univers 00:00:00 00:00:00 [facility] 350.1.13.10 it y of [facility] 4.2.7.2.686 Emanuel as JOLLY?BLEA [phone] [address] MEDICAL OFFICE BUILDING 2022-10-20 2022-10-20 Nurse CLAU Stark 1.2.840.114 [id number] Univers 00:00:00 00:00:00 Triage Kvng GALICIA 350.1.13.10 [facility] 4.2.7.2.686 Emanuel as [phone] [facility] [address] [place] 2022-10-18 2022-10-19 Emergency Kemal Myers 1.2. 840.114 [id number] Univers 15:07:00 17:48:00 Geovanny Willis 350.1.13.10 ity of [facility] 4.2.7.2.686 [place] [id number] [facility] [address] [place] 2022-10-19 2022-10-19 Refill [facility] 1.2.200.974 [id number] Univers 00:00:00 00:00:00 Vern PRIMARY 350.1.13.10 it y of [facility] 4.2.7.2.[place] [phone] Id dicak [address] [place] 2022-10-18 2022-10-18 Outpatient R ADRYAN [facility] [id number] [id number] Univers 11:45:00 13:42:03 BEVERLY flores o f [facility] 2022-10-18 2022-10-18 Tree Tapping Laborer 2, Adc Lab [facility] 1.2.840.114 [id number] Univers 11:45:00 13:42:03 Visit Rocio Corneliusazael GREGORIO 350.1.13. 10 ity of [facility] 4.2.7.2.686 [place] [phone] Id dical NAL 353 [facility] 2022-10-18 2022-10-18 Outpatient R [facility] 1043 [id number] Univers 11:00:00 11:14:47 BEVERLY itjay o f [facility] 2022-10-18 2022-10-18 Office Cornelius, [facility] 1.2.840.114 [id number] Univers 11:00:00 11:14:47 Visit Beverly JG 350.1.13.10 ity of [facility] 4.2.7.2.686 [place] [phone] Id dical NAL 204 [facility] 2022-10-18 2022-10-18 Orders Doctor CLAU 1.2.840.114 [id number] Univers 00:00:00 00:00:00 Only Unassigned, GRAYSON 350.1.13.10 ity of [place] [facility] 4.2.7.2.686 Emanuel as [id number] [address] 2022-10-18 2022-10-18 Telephone [facility] 1.2.840.114 [id number] Univers 00:00:00 00:00:00 [facility] 350.1.13.10 it y of [place] 4.2.7.2.686 Emanuel as JOLLY?BLEA [id number] Id dical ARLENEEY 044 [facility] OFFICE [facility] 2022-10-15 2022-10-15 Outpatient R KASSIDY [facility] [id number] Univers 10:45:00 11:31:42 LAYNE flores of [facility] 2022-10-12 2022-10-12 Refill [facility] 1.2.840.114 [id number] Univers 00:00:00 00:00:00 [facility] 350.1.13.10 it y of [place] 4.2.7.2.686 Emanuel as JOLLY?BLEA [phone] [address] MEDICAL OFFICE [facility] 2022-10-07 2022-10-07 Emergency X [facility] ERT [id number] Univers 11:11:00 13:18:00 DESTINY flores [facility] 2022-10-07 2022-10-07 Emergency [facility] 1.2.377.522 [id number] Univers 11:11:00 13:18:00 Destiny [place] 350.1.13.10 i ty of [facility] 4.2.7.2.686 [place] [id number] [address] 2022-10-07 2022-10-07 Office [facility] 1.2.840.114 [id number] Univers 09:45:00 10:00:00 Visit [facility] 350.1.13.10 it y of [facility] 4.2.7.2.686 Emanuel as JOLLY?BLEA [id number] [address] OFFICE [facility] 2022-10-07 2022-10-07 [address] [facility] [id number] Univers 09:45:00 08:37:42 OSMAR jay [facility] 2022-10-04 2022-10-[address] [facility] 1.2.840.114 [id number] Univers 00:00:00 00:00:00 [facility] 350.1.13.10 it y of [place] 4.2.7.2.686 Emanuel as JOLLY?BLEA [id number] [address] MEDICAL OFFICE [facility] 2022-09-28 2022-09-28 Outpatient R RIK [facility] [id number] Univers 08:00:00 08:00:00 TRAY mark [facility] 2022-09-10 2022-09-10 Susan [facility] 1.2.840.114 [id number] Univers 00:00:00 00:00:00 [facility] 350.1.13.10 it y of [facility] 4.2.7.2.686 Emanuel as JOLLY?BLEA [phone] Me dic[address] OFFICE [facility] 2022-09-08 2022-09-08 Telephone [facility] 1.2.840.114 [id number] Univers 00:00:00 00:00:00 Tray HEALTH 350.1.13.10 it y of [place] 4.2.7.2.686 Emanuel as JOLLY?BLEA [id number] [address] 2022-09-08 2022-09-08 Nurse Delilah OLGUIN 1.2.840.114 [id number] Univers 00:00:00 00:00:00 Triage dMelony 350.1.13.10 [facility] 4.2.7.2.686 Emanuel as [id number] [address] 2022-09-06 2022-09-06 Reffranchesca PaulaM[facility] 1.2.840.114 [id number] Univers 00:00:00 00:00:00 [facility] Bryan HEALTH 350.1.13.10 ity of [place] 4.2.7.2.686 Emanuel as JOLLY?BLEA [id number] [address] OFFICE [facility] 2022-09-06 2022-09-06 Reffranchesca MárquezMIMBRES MEM[facility]IAL [facility] 1.2.550.856 [id number] Univers 00:00:00 00:00:00 Cecile JG 350.1.13.10 i ty of [place].7.2.[place] [id number] [address] 2022-09-03 2022-09-03 Outpatient R MISTY [facility] [id number] Univers 11:30:00 11:48:06 BERRY ity of [facility] 2022-09-03 2022-09-03 Office Misty [facility] 1.2.840.114 [id number] Univers 11:30:00 11:48:06 Visit Berry [facility] 350.1.13.10 it y of [place] 4.2.7.2.686 Emanuel as JOLLY?BLEA [id number] [address] 2022-08-24 2022-08-24 Outpatient R RIK [facility] [id number] Univers 09:00:00 09:00:00 TRAY jay [facility] 2022-08-24 2022-08-24 Office JesicabradfordMIMBRES [facility] 1.2.840.114 [id number] Univers 09:00:00 09:00:00 Visit Tray HEALTH 350.1.13.10 it y of [place] 4.2.7.2.686 Emanuel as JOLLY?BLEA [id number] [address] MEDICAL OFFICE [facility] 2022-08-24 2022-08-24 Outpatient R JESICABRADFORD [facility] [id number] Univers 09:00:00 08:53:13 TRAY flores [facility] 2022-08-24 2022-08-24 Reffranchesca PaulaM[facility]BRES [facility] 1.2.840.114 [id number] Univers 00:00:00 00:00:00 Wondiful A HEALTH 350.1.13.10 ity of [place] 4.2.7.2.686 Emanuel as JOLLY?BLEA [id number] [address] OFFICE [facility] 2022-08-22 2022-08-22 Reffranchesca PaulaM[facility]BRES [facility] 1.2.840.[id number] [place] [address] 00:00:00 00:00:00 Wondiful A HEALTH 350.1.13.10 ity of [place] 4.2.7.2.686 Emanuel as JOLLY?BLEA [id number] [address] MEDICAL OFFICE [facility] 2022-08-13 2022-08-13 Outpatient Brock DE LA TORRE [facility] [id number] Univers 14:00:00 14:00:00 MATEO mark [facility] 2022-08-06 2022-08-06 Telephone [facility] 1..840.114 [id number] [facility] 00:00:00 00:00:00 Tray HEALTH 350.1.13.10 it y of [place] 4.2.7.2.686 Emanuel as JOLLY?BLEA [id number] [address] MEDICAL OFFICE [facility] 2022-08-05 2022-08-05 Orders Doctor OLGUIN 1.2.840.114 [id number] Univers 00:00:00 00:00:00 Only Unassigned, GRAYSON 350.1.13.10 ity of [facility] 4.2.7.2.686 Emanuel as [id number] [address] 2022-07-29 2022-07-29 [facility] 1.2.840.114 [id number] Univers 00:00:00 00:00:00 [facility] 350.1.13.10 it y of [place] [facility] 4.2.7.2.686 Emanuel as JOLLY?BLEA [id number] [address] OFFICE [facility] 2022-07-27 2022-07-27 Out[address] [facility] [id number] Univers 08:00:00 08:25:43 TRAY y of [facility] 2022-07-27 2022-07-27 Office [facility] 1.2.840.114 [id number] Univers 08:00:00 08:25:43 Visit [facility] 350.1.13.10 it y of [place] [facility] 4.2.7.2.686 Emanuel as JOLYL?BLEA [id number] [address] OFFICE [facility] 2022-07-19 2022-07-19 Orders Doctor CLAU 1.2.840.114 [id number] Univers 00:00:00 00:00:00 Only Unassigned, GRAYSON 350.1.13.10 ity of [place] [facility] 4.2.7.2.686 Emanuel as [id number] [address] 2022-07-08 2022-07-08 [facility] 1.2.840.114 [id number] Univers 00:00:00 00:00:00 Tray [place] 350.1.13.10 i ty of [place].2.7.2.686 [place] [id number] [address] 2022-07-07 2022-07-07 Outpatient R STELLA WORLEY [facility] [id number] Univers 00:00:00 00:00:00 STELLA WORLEY it y of [facility] 2022-07-01 2022-07-01 Orders Doctor CLAU 1.2.840.114 [id number] Univers 00:00:00 00:00:00 Only Unassigned, GRAYSON 350.1.13.10 ity of [facility] 4.2.7.2.686 Emanuel as [id number] [address] 2022-06-30 2022-06-30 Outpatient R BRUNILDA STELLA [facility] [id number] Univers 09:34:33 23:59:00 STELLA WORLEY it y of [facility] 2022-06-30 2022-06-30 [facility] Stella Worley CAFRANDY 1.2.840.114 [id number] Univers 09:34:33 23:59:00 Encounter [place] 350.1.13.10 ity of [place] 4.2.7.2.686 [id number] [address] 2022-06-30 2022-06-30 Hospital Stella Worley CAFRANDY 1.2.840.114 [id number] Univers 09:34:16 23:59:00 Encounter [place] 350.1.13.10 ity of [facility] 4.2.7.2.686 [facility] [id number] [address] 2022-06-30 2022-06-30 Orders Doctor CLAU 1.2.840.114 [id number] Univers 00:00:00 00:00:00 Only Unassigned, GRAYSON 350.1.13.10 ity of [facility] 4.2.7.2.686 Emanuel as [id number] [address] 2022-06-30 2022-06-30 Telephone Stella Worley [facility] 1.2.840.114 [id number] Univers 00:00:00 00:00:00 HEALTH 350.1.13.10 it y of [place] 4.2.7.2.686 [place] [id number] [address] OFFICE BUILDING 2022-06-24 2022-06-24 Outpatient R BRUNILDA STELLA [facility] [id number] Univers 00:00:00 00:00:00 BRUNILDA STELLA it y [facility] 2022-06-24 2022-06-24 Telephone BrunildaStella [facility] 1.2.840.114 [id number] Univers 00:00:00 00:00:00 HEALTH 350.1.13.10 it y of [place] 4.2.7.2.686 [place] [id number] [address] OFFICE BUILDING 2022-06-21 2022-06-21 Outpatient R RIK [facility] [id number] Univers 11:00:00 11:00:00 TRAY ity of [facility] 2022-06-21 2022-06-21 [facility]phone [facility] 1.2.840.114 [id number] Univers 00:00:00 00:00:00 Tray HEALTH 350.1.13.10 it y of [place] [facility] 4.2.7.2.686 Emanuel as JOLLY?BLEA [id number] Id gabi [address] MEDICAL OFFICE BUILDING 2022-06-17 2022-06-17 Office Stella Worley [facility] 1.2.840.114 [id number] Univers 11:00:00 11:30:00 Visit HEALTH 350.1.13.10 it y of [place] 4.2.7.2.686 [place] [id number] [address] OFFICE BUILDING 2022-06-17 2022-06-17 Outpatient R STELLA WORLEY [facility] [id number] Univers 11:00:00 11:00:00 STELLA WORLEY it y of [facility] 2022-06-17 2022-06-17 Refill Stella Worley [facility] 1.2.840.114 [id number] Univers 00:00:00 00:00:00 HEALTH 350.1.13.10 it y of [place] 4.2.7.2.686 [place] [id number] [address] OFFICE BUILDING 2022-06-17 2022-06-17 Orders Doctor CLAU 1.2.840.114 [id number] Univers 00:00:00 00:00:00 Only Unassigned, GRAYSON 350.1.13.10 ity of [facility] 4.2.7.2.686 Emanuel as [id number] [address] 2022-06-16 2022-06-16 Telephone [facility] 1.2.840.114 [id number] Univers 00:00:00 00:00:00 [facility] 350.1.13.10 it y of [place] 4.2.7.2.686 Emanuel as JOLLY?BLEA [id number] [address] OFFICE [facility] 2022-06-15 2022-06-15 Outpatient R [facility] [id number] Univers 08:00:00 08:25:29 TRAY ity [facility] 2022-06-15 2022-06-15 Office [facility] 1.2.840.114 [id number] Univers 08:00:00 08:25:29 Visit [facility] 350.1.13.10 it y of [place] 4.2.7.2.686 Emanuel as JOLLY?BLEA [id number] [address] OFFICE [facility] 2022-06-14 2022-06-14 Telephone [facility] 1.2.840.114 [id number] Univers 00:00:00 00:00:00 Cecile GREGORIO 350.1.13.10 i ty of [place] 4.2.7.2.[place] [id number] [address] 2022-06-11 2022-06-11 Telephone [facility] 1.2.840.114 [id number] Univers 00:00:00 00:00:00 [facility] 350.1.13.10 it y of [place] 4.2.7.2.686 Emanuel as JOLLY?BLEA [id number] [address] OFFICE [facility] 2022-06-09 2022-06-09 Telephone [facility] 1.2.840.114 [id number] Univers 00:00:00 00:00:00 Tray HEALTH 350.1.13.10 it y of [place] 4.2.7.2.686 Emanuel as JOLLY?BLEA [id number] [address] OFFICE [facility] 2022-06-04 2022-06-04 Stella Barrow [facility] 1.2.840.114 [id number] Univers 00:00:00 00:00:00 HEALTH 350.1.13.10 it y of [place].7.2.686 [place] [id number] [address] OFFICE [facility] 2022-06-04 2022-06-04 Telephone NurseRy [facility] 1.2.840.114 [id number] Univers 00:00:00 00:00:00 Db HEALTH 350.1.13.10 it y of [place] 4.2.7.2.686 Emanuel as JOLLY?BLEA [id number] Id gabi JACOBSEY 044 [facility] OFFICE [facility] 2022-06-04 2022-06-04 Refill [facility] 1.2.828.113 [id number] Univers 00:00:00 00:00:00 Cecile GREGORIO 350.1.13.10 i ty of [place] 4.2.7.2.[place] [id number] Id gabi [facility] 2022-06-03 2022-06-03 Outpatient R STELLA WORLEY [facility] [id number] Univers 09:30:00 09:30:00 STELLA WORLEY it y of [facility] 2022-06-02 2022-06-02 Stella Barrow [facility] 1.2.840.114 96 [id number] Univers 00:00:00 00:00:00 HEALTH 350.1.13.10 it y of [place] 4[place]2.7.2.686 [place] [id number] [address] OFFICE [facility] 2022-06-02 2022-06-02 Stella Barrow [facility] 1.2.840.114 96 [id number] Univers 00:00:00 00:00:00 HEALTH 350.1.13.10 it y of [place] 4[place]2.7.2.686 [place] [id number] [address] OFFICE [facility] 2022-06-02 2022-06-02 Telephone [facility] 1.2.840.114 96 [id number] Univers 00:00:00 00:00:00 Cecile GREGORIO 350.1.13.10 i ty of [place] 4.2.7.2.686 [place] [id number] Id dical NAL 188 [facility] 2022-06-01 2022-06-01 Orders Doctor CLAU 1.2.840.114 [id number] Univers 00:00:00 00:00:00 Only Unassigned, GRAYSON 350.1.13.10 ity of [facility] 4.2.7.2.686 Emanuel as [id number] [address] 2022-06-01 2022-06-01 Stella Barrow [facility] 1.2.840.114 96 [id number] Univers 00:00:00 00:00:00 HEALTH 350.1.13.10 it y of [place].2.[place] [id number] [address] OFFICE [facility] 2022-06-01 2022-06-01 Susan Márquez [facility] 1.2.166.744 [id number] Univers 00:00:00 00:00:00 Cecile GREGORIO 350.1.13.10 i ty of [place] 4.2.7.2.686 [place] [id number] Id dical NAL 188 [facility] 2022-05-28 2022-05-28 Susan Jolly [facility] 1.2.840.114 [id number] Univers 00:00:00 00:00:00 [facility] HEALTH 350.1.13.10 it y of [place] 4.2.7.2.686 Emanuel as JOLLY?BLEA [id number] Id gabi CHAIREZ 044 [facility] OFFICE BUILDING 2022-05-26 2022-05-26 Stella Barrow [facility] 1.2.840.114 [id number] Univers 00:00:00 00:00:00 HEALTH 350.1.13.10 it y of [place].2.686 [place] [id number] [address] OFFICE BUILDING 2022-05-18 2022-05-18 Outpatient SANJAY DIAZ [facility] [id number] Univers 09:00:00 09:00:00 ity of [facility] 2022-05-17 2022-05-17 Outpatient [facility] [id number] Univers 09:00:00 09:00:00 TRAY flores [facility] 2022-05-13 2022-05-13 Orders Doctor CLAU 1.2.840.114 [id number] Univers 00:00:00 00:00:00 Only Unassigned, GRAYSON 350.1.13.10 ity of [facility] 4.2.7.2.686 Emanuel as [id number] [address] 2022-05-13 2022-05-13 Telephone [facility] 1.2.840.114 [id number] Univers 00:00:00 00:00:00 [facility] 350.1.13.10 it y of [place] 4.2.7.2.686 Emanuel as JOLLY?BLEA [id number] Id gabi KISHORE [address] [place] [address] OFFICE BUILDING 2022-05-10 2022-05-10 Outpatient R RIK [facility] [id number] Univers 16:15:00 16:15:00 TRAY flores [facility] 2022-05-10 2022-05-10 Outpatient STELLA DAVILA [facility] [id number] Univers 00:00:00 00:00:00 STELLA WORLEY [facility] 2022-05-06 2022-05-06 Telephone Stella Worley [facility] 1.2.840.114 [id number] Univers 00:00:00 00:00:00 HEALTH 350.1.13.10 it y of [place] 4.2.7.2.686 [place] mit[place] [id number] [address] OFFICE BUILDING 2022-05-06 2022-05-06 Orders Doctor CLAU 1.2.840.114 [id number] Univers 00:00:00 00:00:00 Only Unassigned, GRAYSON 350.1.13.10 ity of [facility] 4.2.7.2.686 Emanuel as [id number] [address] 2022-04-29 2022-04-29 Outpatient Brock AGUILAR [facility] [id number] Univers 14:00:00 14:00:00 CLAU flores [facility] 2022-04-14 2022-04-14 Outpatient VIK TAVERA [facility] [id number] Univers 09:00:00 09:00:00 ity of [facility] 2022-04-12 2022-04-12 Susan Pollard [facility] 1.2.840.114 [id number] Univers 00:00:00 00:00:00 Ricardo GREGORIO 350.1.13.10 [place] [id number] Id dical NAL [address] [facility] 2022-04-09 2022-04-09 [address] [facility] [id number] Univers 11:00:00 11:00:00 ISAC ity [facility] 2022-04-08 2022-04-08 [facility] 1.2.840.114 [id number] Univers 08:30:00 23:59:00 Encounter [facility] 350.1.13.10 [place] [id number] [facility] [address] OFFICE BUILDING 2022-04-08 2022-04-08 Outpatient R [facility] [id number] Univers 08:30:00 23:59:00 [facility] ity o f [facility] 2022-04-08 2022-04-08 Telephone Stella Worley [facility] 1.2.840.114 [id number] Univers 00:00:00 00:00:00 HEALTH 350.1.13.10 [place] [phone] [facility] [address] OFFICE BUILDING 2022-04-02 2022-04-02 Outpatient R MARY JANE [facility] [id number] Univers 09:30:00 09:30:00 MATEO flores [facility] 2022-03-31 2022-03-31 Telephone Rik [facility] 1.2.840.114 [id number] Univers 00:00:00 00:00:00 Tray HEALTH 350.1.13.10 it y of [place] 4.2.7.2.686 Emanuel as JOLLY?BLEA [phone] [address] OFFICE [facility] 2022-03-27 2022-03-27 Emergency [facility] [id number] [id number] Univers 07:48:00 08:22:00 Destiny JG 350.1.13.10 i ty [facility] [place].2.7.2.686 [place] [facility] [phone] [address] 2022-03-27 2022-03-27 Emergency X [facility] ERT [id number] Univers 07:48:00 08:22:00 DESTINY ity of [facility] 2022-03-27 2022-03-27 Orders Doctor CLAU 1.2.840.114 [id number] Univers 00:00:00 00:00:00 Only Unassigned, GRAYSON 350.1.13.10 ity of [facility] 4.2.7.2.686 Emanuel as [id number] [address] 2022-03-24 2022-03-24 Telephone [facility] 1.2.840.114 [id number] Univers 00:00:00 00:00:00 Tray HEALTH 350.1.13.10 [facility] 4.2.7.2.686 Emanuel as JOLLY?BLEA [id number] [address] 2022-03-19 2022-03-19 Orders Doctor CLAU 1.2.840.114 [id number] Univers 00:00:00 00:00:00 Only Unassigned, GRAYSON 350.1.13.10 ity of [facility] 4.2.7.2.686 Emanuel as [id number] [address] 2022-03-19 2022-03-19 Telephone [facility] 1.2.840.114 [id number] Univers 00:00:00 00:00:00 [facility] Center HEALTH 350.1.13.10 it y of [facility] 4.2.7.2.686 Emanuel as JOLLY?BLEA [id number] [address] OFFICE [facility] 2022-03-17 2022-03-17 Telephone [facility] 1.2.840.114 [id number] Univers 00:00:00 00:00:00 Tray HEALTH 350.1.13.10 it y of [place] 4.2.7.2.686 Emanuel as JOLLY?BLEA [phone] Id gabi CHAIREZ [address] MEDICAL OFFICE BUILDING 2022-03-12 2022-03-12 Stella Barrow [facility] 1.2.840.114 [id number] Univers 00:00:00 00:00:00 HEALTH 350.1.13.10 it y of [place] [id number] [place] [address] OFFICE BUILDING 2022-03-08 2022-03-08 [place] [facility] 1.2.840.114 [id number] Univers 00:00:00 00:00:00 Tray HEALTH 350.1.13.10 it y of [place] 4.2.7.2.686 Emanuel as JOLLY?BLEA [id number] Id gabi [address] OFFICE [facility] 2022-03-02 2022-03-02 Outpatient R [facility] [id number] Univers 07:39:00 11:22:00 CECILE ity of [facility] 2022-03-02 2022-03-02 [facility] 1.2.840.114 [id number] Univers 07:39:00 11:22:00 Encounter Cecile GREGORIO 350.1.13.10 ity of [place].2.7.2.686 [place]ICAL [id number] [facility] [address] 2022-03-02 2022-03-02 Surgery [facility] 1.2.316.984 [id number] [id number] Univers 09:11:00 10:25:00 Cecile GREGORIO 350.1.13.10 i ty of [facility] 4.2.7.2.686 [place] [id number] [facility] [address] 2022-03-02 2022-03-02 Orders Doctor OLGUIN 1.2.840.114 [id number] Univers 00:00:00 00:00:00 Only Unassigned, GRAYSON 350.1.13.10 ity of [facility] 4.2.7.2.686 Emanuel as [id number] [facility] [address] 2022-03-01 2022-03-01 Telephone [facility] 1.2.840.114 [id number] Univers 00:00:00 00:00:00 Cecile BYERSCHRISTELLE 350.1.13.10 i ty of [place] 4.2.7.2.686 [place] [id number] Id dicak NAL [address] [facility] 2022-03-01 2022-03-01 Reffranchesca [facility] 1.2.840.114 [id number] Univers 00:00:00 00:00:00 Sendlarissa RizviGabe GREGORIO 350.1.13.10 ity of [facility] 4.2.7.2.686 [place] [id number] [facility] 059 [facility] 2022-02-25 2022-02-25 [address] [facility] [facility] [id number] Univers 11:00:00 11:00:00 TRAY [facility] 2022-02-25 2022-02-25 Telephone Stella Worley [facility] 1.2.840.114 [id number] Univers 00:00:00 00:00:00 HEALTH 350.1.13.10 it y of [place] 4.[place].2.[place] [id number] [facility] [address] OFFICE BUILDING 2022-02-24 2022-02-24 Telephone [facility] 1.2.840.114 [id number] Univers 00:00:00 00:00:00 [facility] 350.1.13.10 it y of [place] 4.2.7.2.686 Emanuel as JOLLY?BLEA [phone] Id dicak ARLENEEY [address] MEDICAL OFFICE BUILDING 2022-02-23 2022-02-23 Telephone [facility] 1.2.840.114 [id number] Univers 00:00:00 00:00:00 Tray HEALTH 350.1.13.10 it y of [place] 4.2.7.2.686 Emanuel as JOLLY?BLEA [id number] [facility] [address] MEDICAL OFFICE BUILDING 2022-02-22 2022-02-22 Refill [facility] 1.2.840.114 [id number] Univers 00:00:00 00:00:00 Wondiful A HEALTH 350.1.13.10 ity of [place] 4.2.7.2.686 Emanuel as JOLLY?BLEA [phone] [facility] JACO[address] OFFICE [facility] 2022-02-18 2022-02-18 Patient [facility] 1.2.840.114 [id number] Univers 00:00:00 00:00:00 Secure Msg Tray [facility] 350.1.13.10 ity of [place] 4.2.7.2.686 Emanuel as JOLLY?BLEA [id number] [address] OFFICE [facility] 2022-02-18 2022-02-18 Telephone [facility] 1.2.840.114 [id number] [id number] Univers 00:00:00 00:00:[address] [facility] 350.1.13.10 i ty of [place] 4.2.7.2.686 [place] [id number] Id gabi BARNEY [address] [place] [address] 2022-02-16 2022-02-16 Outpatient R RIK [facility] [id number] Univers 09:15:00 09:30:10 TRAY phillipsy [facility] 2022-02-16 2022-02-16 Office [facility] 1.2.840.114 [id number] Univers 09:15:00 09:30:10 Visit [facility] 350.1.13.10 it y of [place]brittnee [place] 4.2.7.2.686 Emanuel as JOLLY?BLEA [id number] [address] OFFICE [facility] 2022-02-16 2022-02-16 Outpatient R RIK [facility] [id number] Univers 09:15:00 09:15:00 TRAY flores [facility] 2022-02-16 2022-02-16 Telephone Vik Oliveira [facility] 1.2.840.114 [id number] Univers 00:00:00 00:00:00 HEALTH 350.1.13.10 it y of [place] 4[place]2.[place].2.[place] LNYN [id number] [address] OFFICE BUILDING 2022-02-15 2022-02-15 Outpatient R FLORENCE [facility] [id number] Univers 15:15:00 15:15:00 CAPRICE ity [facility] 2022-02-14 2022-02-14 Nurse CLAU Zarate 1.2.454.588 [id number] [id number] Univers 00:00:00 00:00:00 Triage Young GALICIA 350.1.13.10 it y of HOSPITAL 4.2.7.2.686 Emanuel as [phone] [address] 2022-02-12 2022-02-12 Telephone Rik [facility] 1.2.840.114 [id number] Univers 00:00:00 00:00:00 [facility] 350.1.13.10 it y of [place] GREG[place]IO 4.2.7.2.686 Emanuel as JOLLY?BLEA [id number] Id gabi JACOBS[address] OFFICE BUILDING 2022-02-11 2022-02-11 Telephone Stella Worley [facility] 1.2.840.114 [id number] Univers 00:00:00 00:00:00 HEALTH 350.1.13.10 it y of [place] 4[place]2.[place].2.[place] [phone] [address] OFFICE [facility] 2022-02-11 2022-02-11 Telephone Vik Oliveira [facility] 1.2.840.114 [id number] Univers 00:00:00 00:00:00 HEALTH 350.1.13.10 it y of [place] 4.2.7.2.[place] [phone] [address] OFFICE BUILDING 2022-02-10 2022-02-10 Outpatient NAV GIANG [facility] [id number] Univers 00:00:00 00:00:00 ity [facility] 2022-02-10 2022-02-10 Outpatient NAV GIANG [facility] [id number] Univers 00:00:00 00:00:00 ity [facility] 2022-02-10 2022-02-10 Orders Doctor OLGUIN 1.2.840.114 [id number] Univers 00:00:00 00:00:00 Only Unassigned, GRAYSON 350.1.13.10 ity of [place] [facility] 4.2.7.2.686 Emanuel as [phone] [address] 2022-02-08 2022-02-08 Outpatient R STELLA WORLEY [facility] [id number] Univers 10:00:00 11:34:48 STELLA WORLEY it y of [facility] 2022-02-08 2022-02-08 Office Stella Worley [facility] 1.2.840.114 [id number] Univers 10:00:00 11:34:48 Visit HEALTH 350.1.13.10 it y of [place] 4.2.7.2.686 [place] [id number] [place] 9[address] OFFICE BUILDING 2022-02-01 2022-02-01 Telephone [facility] 1.2.792.954 [id number] [id number] Univers 00:00:00 00:00:00 Isac S HEALTH 350.1.13.10 it y of [place] 4.2.7.2.686 Emanuel as JOLLY?BLEA [id number] Id [facility] [address] MEDICAL OFFICE BUILDING 2022-01-28 2022-01-28 Orders Doctor CLAU 1.2.840.114 [id number] Univers 00:00:00 00:00:00 Only Unassigned, GRAYSON 350.1.13.10 ity of [place] [facility] 4.2.7.2.686 Emanuel as [id number] [address] 2022-01-27 2022-01-27 Telephone [facility] 1.2.840.114 [id number] Univers 00:00:00 00:00:00 Tray HEALTH 350.1.13.10 it y of [place] 4.2.7.2.686 Emanuel as JOLLY?BLEA [phone] Id samirroshan JACOBS [address] MEDICAL OFFICE BUILDING 2022-01-27 2022-01-27 Telephone [facility] 1.2.840.114 [id number] Univers 00:00:00 00:00:00 Tray HEALTH 350.1.13.10 it y of [place] 4.2.7.2.686 Emanuel as JOLLY?BLEA [id number] Id [facility] 044 [facility] OFFICE BUILDING 2022-01-27 2022-01-27 Telephone Vik Oliveira [facility] 1.2.840.114 [id number] Univers 00:00:00 00:00:00 HEALTH 350.1.13.10 it y of [place].2.[place] [phone] [facility] [address] OFFICE BUILDING 2022-01-25 2022-01-25 Out[facility] [id number] Univers 10:20:49 23:59:00 MATEO flores [facility] 2022-01-25 2022-01-25 [facility] 1.2.840.114 [id number] Univers 10:00:00 23:59:00 Encounter Mateo GREGORIO 350.1.13.10 ity of [facility] 4.2.7.2.686 [place] [phone] [facility] [address] 2022-01-25 2022-01-25 Outpatient R DE LA [facility] [id number] Univers 00:00:00 00:00:00 MATEO flores [facility] 2022-01-25 2022-01-25 Orders Doctor OLGUIN 1.2.840.114 [id number] Univers 00:00:00 00:00:00 Only UnassignedGRAYSON 350.1.13.10 ity of [facility] 4.2.7.2.686 Emanuel as [id number] [address] 2022-01-22 2022-01-22 Telephone Rik [facility] 1.2.840.114 [id number] Univers 00:00:00 00:00:00 [facility] 350.1.13.10 it y of [place] 4.2.7.2.686 Emanuel as JOLLY?BLEA [id number] Id gabi [address] MEDICAL OFFICE [facility] 2022-01-22 2022-01-22 Orders Doctor OLGUIN 1.2.840.114 [id number] Univers 00:00:00 00:00:00 Only Unassigned, GRAYSON 350.1.13.10 ity of [facility] 4.2.7.2.686 Emanuel as [phone] [address] 2022-01-21 2022-01-21 [facility] 1.2.840.114 [id number] Univers 00:00:00 00:00:00 Wondiful A HEALTH 350.1.13.10 ity of [facility] 4.2.7.2.686 Emanuel as JOLLY?BLEA [id number] [address] OFFICE [facility] 2022-01-20 2022-01-20 [facility] 1.2.840.114 [id number] Univers 00:00:00 00:00:00 Wondiful A HEALTH 350.1.13.10 ity of [facility] 4.2.7.2.686 Emanuel as JOLLY?BLEA [phone] [address] OFFICE [facility] 2022-01-19 2022-01-19 Telephone [facility] 1.2.840.114 [id number] Univers 00:00:00 00:00:00 Tray HEALTH 350.1.13.10 it y of [place] 4.2.7.2.686 Emanuel as JOLLY?BLEA [id number] Id dicroshan [address] 2022-01-18 2022-01-18 [facility] [place] 1.2.840.114 [id number] [id number] Univers 00:00:00 00:00:00 Tray HEALTH 350.1.13.10 it y of [place] 4.2.7.2.686 Emanuel as JOLLY?BLEA [phone] Id dic[address] 2022-01-13 2022-01-13 [facility]phone [facility] 1.2.840.114 [id number] Univers 00:00:00 00:00:00 Arnoldo [place] 350.1.13.10 i ty of [place].2.7.2.686 [place] [id number] Id gabi [address] 2022-01-11 2022-01-11 Outpatient R MOMO [facility] [id number] Univers 14:45:00 23:59:00 [facility] 2022-01-11 2022-01-11 Out[address]ok [facility] [id number] Univers 14:45:00 23:59:00 [facility] 2022-01-11 2022-01-11 Office [facility] 1.2.840.114 [id number] Univers 13:45:00 14:00:00 Visit [facility] HEALTH 350.1.13.10 it y of [place] 4.2.7.2.686 Emanuel as JOLLY?BLEA [id number] Id gabi CHAIREZ 198 [facility] OFFICE [facility] 2022-01-11 2022-01-11 Outpatient Brock BARR [facility] [id number] Univers 13:45:00 13:45:00 [facility] 2022-01-07 2022-01-07 Telephone [facility] 1.2.840.114 [id number] Univers 00:00:00 00:00:00 Tray HEALTH 350.1.13.10 it y of [place] 4.2.7.2.686 Emanuel as JOLLY?BLEA [phone] Id gabi CHAIREZ 044 [facility] OFFICE [facility] 2022-01-06 2022-01-06 Telephone [facility] 1.2.840.114 [id number] Univers 00:00:00 00:00:00 Wondiful A HEALTH 350.1.13.10 ity of [place] 4.2.7.2.686 Emanuel as JOLLY?BLEA [phone] Id gabi CHAIREZ [address] MEDICAL OFFICE [facility] 2022-01-05 2022-01-05 Telephone [facility] 1.2.840.114 [id number] Univers 00:00:00 00:00:00 Tray HEALTH 350.1.13.10 it y of [place] 4.2.7.2.686 Emanuel as JOLLY?BLEA [phone] Id gabi CHAIREZ [address] [place] [address] MEDICAL OFFICE [facility] 2022-01-04 2022-01-04 Telephone [facility] 1.2.840.114 [id number] Univers 00:00:00 00:00:00 [facility] 350.1.13.10 it y of [place] 4.2.7.2.686 Emanuel as JOLLY?BLEA [phone] Id gabi CHAIREZ [address] [place] [address] OFFICE [facility] 2021-12-31 2021-12-31 Telephone [facility] 1.2.840.114 [id number] Univers 00:00:00 00:00:00 Tray HEALTH 350.1.13.10 it y of [place] 4.2.7.2.686 Emanuel as JOLLY?BLEA 850.3403286 Id gabi CHAIREZ [address] [place] [address] 2021-12-31 2021-12-31 [address]114 [id number] [id number] Univers 00:00:00 00:00:00 [facility] 350.1.13.10 it y of [place] 4.2.7.2.686 Emanuel as JOLLY?BLEA [phone] Id gabi CHAIREZ [address] [place] [address] 2021-12-30 2021-12-30 Patient [facility] 1.2.840.114 [id number] Univers 00:00:00 00:00:00 Outreach [facility] 350.1.13.10 ity of [place] 4.2.7.2.686 Emanuel as PROFESSIO [phone] Id gabi BARNEY [address] [place] [address] 2021-12-28 2021-12-28 [address] [id number] Univers 09:30:00 10:07:08 CECILE flores [facility] 2021-12-28 2021-12-28 Outpatient R WILLI [facility] [id number] Univers 09:30:00 10:07:08 CECILE flores [facility] 2021-12-28 2021-12-28 Office [facility] 1.2.972.734 [id number] [id number] Univers 09:30:00 10:07:08 Visit Cecile JG 350.1.13.10 i ty of [place] 4.2.7.2.[place] [id number] Id dical [address] 2021-12-24 2021-12-24 Outpatient R [facility] [id number] Univers 14:00:00 14:00:00 ity of [facility] 2021-12-24 2021-12-24 Patient Rik [facility] 1.2.840.114 [id number] Univers 00:00:00 00:00:00 Secure Msg [facility] 350.1.13.10 ity of [place] [facility] 4.2.7.2.686 Emanuel as JOLLY?BLEA [phone] [facility] ARLENE[address] OFFICE [facility] 2021-12-22 2021-12-22 Telephone [facility] 1.2.840.114 [id number] Univers 00:00:00 00:00:00 Cecile JG 350.1.13.10 i ty of [facility] 4.2.7.2.686 [place] [id number] Id gabi BARNEY [address] [place] [address] 2021-12-16 2021-12-16 Telephone Rik [facility] 1.2.840.114 [id number] Univers 00:00:00 00:00:00 [facility] 350.1.13.10 it y of [place]br[place] [facility] 4.2.7.2.686 Emanuel as JOLLY?BLEA [phone] Id gabi CHAIREZ [address] [place] [address] OFFICE [facility] 2021-12-11 2021-12-11 Surgery [facility] 1.2.742.677 [id number] 9758 Univers 10:33:00 11:46:00 Cecile JG 350.1.13.10 i ty of [place] 4.2.7.2.[place]GICAL [id number] [address] 2021-12-11 2021-12-11 Surgery [facility] 1.2.162.489 [id number] 9758 Univers 10:33:00 11:46:00 Cecile JG 350.1.13.10 i ty of [facility] 4.2.7.2.686 [place]ICAL [id number] [address] 2021-12-11 2021-12-11 Surgery [facility] 1.2.327.704 [id number] 9758 Univers 10:33:00 11:46:00 Cecile BYERSCHRISTELLE 350.1.13.10 i ty of [facility] 4.2.7.2.686 [place]GICAL [id number] [facility] [address] 2021-12-11 2021-12-11 Outpatient R [facility] [id number] Univers 08:40:00 11:25:00 CECILE jay [facility] 2021-12-11 2021-12-11 [facility] 1.2.840.114 [id number] Univers 08:40:00 11:25:00 Encounter Cecile BYERSCHRISTELLE 350.1.13.10 ity [facility] 4.2.7.2.[place]ICAL [id number] [facility] [address] 2021-12-11 2021-12-11 Outpatient R [facility] [id number] Univers 08:40:00 11:25:00 [facility] 2021-12-11 2021-12-11 Outpatient R [facility] 99045 [id number] Univers 08:40:00 11:25:00 [facility] 2021-12-11 2021-12-11 Orders Doctor CLAU 1.2.840.114 [id number] Univers 00:00:00 00:00:00 Only Unassigned, GRAYSON 350.1.13.10 ity of [facility] 4.2.7.2.686 Emanuel as [id number] [address] 2021-12-09 2021-12-09 Telephone [facility] 1.2.840.114 [id number] Univers 00:00:00 00:00:00 Wondiful A HEALTH 350.1.13.10 ity of [place] 4.2.7.2.686 Emanuel as JOLLY?BLEA [id number] Id gabi [address] MEDICAL OFFICE BUILDING 2021-12-08 2021-12-08 Outpatient R [facility] [id number] Univers 13:00:00 13:00:00 ity [facility] 2021-12-08 2021-12-08 Telephone [facility] 1.2.840.114 [id number] Univers 00:00:00 00:00:00 Tray HEALTH 350.1.13.10 it y of [place] 4.2.7.2.686 Emanuel as JOLLY?BLEA [id number] [address] OFFICE [facility] 2021-12-08 2021-12-08 Telephone [facility] 1.2.840.114 [id number] Univers 00:00:00 00:00:00 Tray HEALTH 350.1.13.10 it y of [place] 4.2.7.2.686 Emanuel as JOLLY?BLEA [id number] [address] 2021-12-03 2021-12-03 Outpatient R MARITZA [facility] [id number] Univers 13:30:00 13:30:00 ORPHEUS ity of [facility] 2021-12-03 2021-12-03 Telephone [facility] 1.2.840.114 [id number] Univers 00:00:00 00:00:00 Cecile GREGORIO 350.1.13.10 i ty of [facility] 4.2.7.2.686 [place] [phone] [facility] 2021-12-03 2021-12-03 Telephone [facility] 1.2.840.114 [id number] Univers 00:00:00 00:00:00 Wondiful A HEALTH 350.1.13.10 ity of [place] 4.2.7.2.686 Emanuel as PROFESSIO [phone] [address] ONE 2021-12-01 2021-12-01 Outpatient R NISA [facility] [id number] Univers 14:15:00 14:54:12 WONDIFUL ity o f [facility] 2021-12-01 2021-12-01 Office [facility] 1.2.840.114 [id number] Univers 14:15:00 14:54:12 Visit Wondiful A HEALTH 350.1.13.10 ity of [facility] 4.2.7.2.686 Emanuel as JOLLY?BLEA [phone] Id gabi JACOBS[address] MEDICAL OFFICE BUILDING 2021-12-01 2021-12-01 Outpatient R NISA [facility] [id number] Univers 14:15:00 14:54:12 WONDIFUL ity o f [facility] 2021-12-01 2021-12-01 Patient Scot [facility] 1.2.840.114 [id number] Univers 00:00:00 00:00:00 Outreach [facility] 350.1.13.10 i ty of [facility] 4.2.7.2.686 Emanuel as JOLLY?BLEA [id number] Id gabi [address] MEDICAL OFFICE [facility] 2021-12-01 2021-12-01 [facility] 1.2.840.114 [id number] Univers 00:00:00 00:00:00 Outreach [facility] 350.1.13.10 i ty of [place] 4.2.7.2.686 Emanuel as JOLLY?BLEA [id number] Id gabi [address] MEDICAL OFFICE [facility] 2021-11-18 2021-11-18 Outpatient R NISA [facility] [id number] Univers 10:00:00 10:44:34 WONDIFUL ity o f [facility] 2021-11-18 2021-11-18 Outpatient R NISA [facility] [id number] Univers 10:00:00 10:44:34 WONDIFUL ity o f [facility] 2021-11-18 2021-11-18 Outpatient R NISA [facility] [id number] Univers 10:00:00 10:00:00 WONDIFUL ity o f [facility] 2021-11-18 2021-11-18 Outpatient R NISA [facility] [id number] Univers 10:00:00 10:00:00 WONDIFUL ity o f [facility] 2021-11-18 2021-11-18 Outpatient R NISA [facility] [id number] Univers 10:00:00 10:00:00 WONDIFUL ity o f [facility] 2021-11-16 2021-11-16 Outpatient R [facility] [id number] Univers 09:30:00 09:30:00 CECILE flores [facility] 2021-11-16 2021-11-16 [address] [id number] Univers 09:30:00 09:30:00 CECILE flores [facility] 2021-11-16 2021-11-16 Outpatient R MÁRQUEZ, [facility] [id number] Univers 09:30:00 09:30:00 CECILE jay [facility] 2021-11-15 2021-11-15 Emergency [facility] ERT [id number] Univers 09:06:00 12:49:00 DESTINY flores [facility] 2021-11-15 2021-11-15 Emergency [facility] [id number] Univers 09:06:00 12:49:00 Destiny BYERSCHRISTELLE 350.1.13.10 i ty of [place] 4.2.7.2.686 [facility] [phone] [facility] [address] 2021-11-15 2021-11-15 Emergency [facility] [id number] Univers 09:06:00 12:49:00 DESTINY flores [facility] 2021-11-10 2021-11-10 Telephone [facility] [id number] [id number] Univers 00:00:00 00:00:00 Wondiful A HEALTH 350.1.13.10 ity of [place] 4.2.7.2.686 Emanuel as JOLLY?BLEA [phone] Id gabi [address] MEDICAL OFFICE BUILDING 2021-11-05 2021-11-05 Orders Doctor CLAU [id number] Univers 00:00:00 00:00:00 Only Unassigned, GRAYSON 350.1.13.10 ity of [facility] 4.2.7.2.686 Emanuel as [phone] [facility] [address] 2021-11-05 2021-11-05 [facility] 1.2.840.114 [id number] Univers 00:00:00 00:00:00 Wondiful A HEALTH 350.1.13.10 ity of [place] 4.2.7.2.686 Emanuel as JOLLY?BLEA [phone] Id dicroshan CHAIREZ 044 [facility] OFFICE [facility] 2021-11-03 2021-11-03 Telephone Nisa [facility] 1.2.840.114 [id number] Univers 00:00:00 00:00:00 Wondiful A HEALTH 350.1.13.10 ity of [place] 4.2.7.2.686 Emanuel as JOLLY?BLEA [phone] Id gabi CHAIREZ 044 [facility] OFFICE [facility] 2021-11-03 2021-11-03 [facility]phone [facility] 1.2.840.114 [id number] Univers 00:00:00 00:00:00 Wondiful A HEALTH 350.1.13.10 ity of [place] 4.2.7.2.686 Emanuel as JOLLY?BLEA [phone] [facility] [address] 2021-10-27 2021-10-27 Case Sanjay Sánchez 1.2.840.114 [id number] Univers 00:00:00 00:00:00 Management H 350.1.13.10 ity of [facility] 4.2.7.2.686 Emanuel as [phone] [address] 2021-10-26 2021-10-26 Telephone Sanjay Sánchez 1.2.840.114 [id number] Univers 00:00:00 00:00:00 H 350.1.13.10 it y of [facility] 4.2.7.2.686 Emanuel as [phone] [address] 2021-10-23 2021-10-23 Telephone Jaymie [facility] [id number] [id number] Univers 00:00:00 00:00:00 Corry A [place] 350.1.13.10 it[place] of [place] [id number] Id gabi [facility] 2021-10-22 2021-10-22 Outpatient Brock BARR [facility] [id number] Univers 14:45:00 14:45:00 ISAC [facility] 2021-10-22 2021-10-22 Outpatient Brock MOMO [facility] [id number] Univers 14:45:00 14:45:00 ISAC ity [facility] 2021-10-22 2021-10-22 Outpatient Brock MOMO [facility] [id number] Univers 14:45:00 14:45:00 ISAC jay [facility] 2021-10-22 2021-10-22 Outpatient Brock BARR [facility] [id number] Univers 14:45:00 14:45:00 ISAC [facility] 2021-10-19 2021-10-19 Telephone Nisa [facility] 1.2.840.114 [id number] Univers 00:00:00 00:00:00 Wondiful A [facility] 350.1.13.10 ity [facility] 4.2.7.2.686 Emanuel as JOLLY?BLEA [phone] Id gabi JACOBSEY [address] [place] [address] MEDICAL OFFICE [facility] 2021-10-13 2021-10-13 Outpatient R JAYMIE [facility] [id number] Univers 10:30:00 10:41:12 CORRY [facility] 2021-10-13 2021-10-13 Office [facility] 1.2.840.114 [id number] Univers 10:30:00 10:41:12 Visit [facility] 350.1.13.10 ity [facility] [place] [phone] Id gabi BARENY [address] [facility] 2021-10-13 2021-10-13 Outpatient Brock COON [facility] [id number] Univers 10:30:00 10:41:12 CORRY flores [facility] 2021-09-29 2021-09-29 Outpatient R FLORENCE [facility] [id number] Univers 16:14:01 23:59:00 CAPRICE jay [facility] 2021-09-29 2021-09-29 Outpatient R FLORENCE [facility] [id number] Univers 16:14:01 23:59:00 CAPRICE flores [facility] 2021-09-29 2021-09-29 [facility] 1..840.114 [id number] Univers 16:14:01 23:59:00 Encounter Caprice THAPA 350.1.13.10 ity of [place] 4.2.7.2.686 Emanuel as JOLLY?BLEA [phone] Id gabi CHAIREZ 809 [facility] OFFICE [facility] 2021-09-29 2021-09-29 Outpatient Brock HENRIQUEZ [facility] [id number] Univers 16:14:01 23:59:00 CAPRICE [facility] 2021-09-29 2021-09-29 Office [facility] 1..840.114 [id number] Univers 16:00:00 16:58:02 Visit Isac [facility] 350.1.13.10 it y [facility] 4.2.7.2.686 Emanuel as JOLLY?BLEA [phone] Id gabi [facility] [address] [facility] OFFICE [facility] 2021-09-29 2021-09-29 Outpatient Brock BARR [facility] [id number] Univers 16:00:00 16:58:02 [facility] 2021-09-29 2021-09-29 Outpatient Brock BARR [facility] [id number] Univers 16:00:00 16:58:02 [facility] 2021-09-29 2021-09-29 Outpatient Brock BARR [facility] [id number] Univers 16:00:00 16:00:00 [facility] 2021-09-24 2021-09-24 Outpatient Brock BARR [facility] [id number] Univers 14:00:00 14:00:00 [facility] 2021-09-19 2021-09-19 Nurse Caprice Ozuna 1..840.114 [id number] Univers 00:00:00 00:00:00 Triage GRAYSON 350.1.13.10 [facility] 4.2.7.2.686 Emanuel as [phone] [address] 2021-09-09 2021-09-09 Prep For [facility] 1.2.840.114 [id number] Univers 00:00:00 00:00:00 Surgery Corry GREGORIO 350.1.13.10 it[place] of [place] [phone] Id dical NAL 204 [facility] 2021-09-08 2021-09-08 Office [facility] 1.2.243.933 [id number] Univers 14:30:00 16:16:36 Visit Cecile GREGORIO 350.1.13.10 i ty of [place] [id number] Id dical NAL 188 [facility] 2021-09-08 2021-09-[address] [facility] [id number] Univers 14:30:00 16:16:36 CECILE flores [facility] 2021-09-08 2021-09-[address] [facility] [id number] Univers 14:30:00 16:16:36 [facility] 2021-09-08 2021-09-08 [address] [facility] [address] [id number] Univers 14:30:00 14:30:00 CECILE mark [facility] 2021-09-08 2021-09-08 Orders Doctor CLAU 1.2.840.114 [id number] Univers 00:00:00 00:00:00 Only Unassigned, GRAYSON 350.1.13.10 ity of [place] [facility] 4.2.7.2.686 Emanuel as [phone] [address] 2021-09-02 2021-09-02 Outpatient R [facility] [id number] Univers 14:00:00 14:00:00 CAPRICE flores [facility] 2021-08-31 2021-08-31 Orders Doctor OLGUIN 1.2.840.114 [id number] Univers 00:00:00 00:00:00 Only Unassigned, GRAYSON 350.1.13.10 ity of [facility] 4.2.7.2.686 Emanuel as [phone] [address] 2021-08-26 2021-08-26 [address] [id number] Univers 10:45:00 11:58:51 WONDIFUL ity o f [facility] 2021-08-26 2021-08-26 Outpatient R NISA [facility] [id number] Univers 10:45:00 11:58:51 WONDIFUL ity o f [facility] 2021-08-26 2021-08-26 Outpatient R NISA [facility] [id number] Univers 10:45:00 11:58:51 WONDIFUL ity o f [facility] 2021-08-26 2021-08-26 Outpatient R NISA [facility] [id number] Univers 10:45:00 11:58:51 WONDIFUL ity o f [facility] 2021-08-26 2021-08-26 Office [facility] 1.2.840.114 [id number] Univers 10:34:47 11:58:51 Visit Wondiful A HEALTH 350.1.13.10 ity of [place] 4.2.7.2.686 Emanuel as JOLLY?BLEA [phone] [address] MEDICAL OFFICE [facility] 2021-08-17 2021-08-17 [facility] 1.2.840.114 [id number] Univers 00:00:00 00:00:00 Management Wondiful A HEALTH 350.1.13.10 ity of [place] 4.2.7.2.686 Emanuel as JOLLY?BLEA [id number] [address] MEDICAL OFFICE [facility] 2021-08-13 2021-08-13 Outpatient R NISA, [facility] [id number] Univers 07:58:20 23:59:00 WONDIFUL ity o f [facility] 2021-08-13 2021-08-13 [facility] 1.2.578.578 [id number] Univers 07:58:20 23:59:00 Encounter Wondiful A [place] 350.1.13.10 ity of [place] [phone] [facility] [address] [place] [address] 2021-08-13 2021-08-13 Outpatient R NISA, [facility] [id number] Univers 07:58:20 23:59:00 WONDIFUL ity o f [facility] 2021-08-13 2021-08-13 Tree Tapping Laborer Zachariah, Adc Lab Main [facility] 1.2.8 40.114 [id number] Univers 07:57:57 08:12:57 Visit HickoryBunny thomassaturnino Bryan [facility] 350.1.13. 10 ity of [facility] 4.2.7.2.[place] [id number] Id dical NAL [address] BUILDING 2021-08-13 2021-08-13 Outpatient R NISA [facility] [id number] Univers 00:00:00 00:00:00 WONDIFUL ity o f [facility] 2021-08-04 2021-08-04 Outpatient R NISA [facility] [id number] Univers 15:30:00 15:42:52 WONDIFUL ity o f [facility] 2021-08-04 2021-08-04 Outpatient R NISA [facility] [id number] Univers 15:30:00 15:42:52 WONDIFUL ity o f [facility] 2021-08-04 2021-08-04 Outpatient R NISA [facility] [id number] Univers 15:30:00 15:42:52 WONDIFUL ity o f [facility] 2021-08-04 2021-08-04 Outpatient R NISA [facility] [id number] Univers 15:30:00 15:42:52 WONDIFUL ity o f [facility] 2021-08-04 2021-08-04 Outpatient R NISA [facility] [id number] Univers 15:30:00 15:42:52 WONDIFUL ity o f [facility] 2021-08-04 2021-08-04 Office [facility] 1.2.840.114 [id number] Univers 14:30:05 15:42:52 Visit Wondiful A HEALTH 350.1.13.10 ity of [place] 4.2.7.2.686 Emanuel as JOLLY?BLEA [id number] Id dical KNEY [address] MEDICAL OFFICE BUILDING 2021-08-04 2021-08-04 [address] [facility] [id number] Univers 15:30:00 15:30:00 WONDIFUL ity o f [facility] 2021-08-03 2021-08-03 Pre Visit CLAU Edmondson 1..840.114 [id number] Univers 00:00:00 00:00:00 Outreach Jorge GALICIA 350.1.13.10 i ty [facility] 4.2.7.2.686 Emanuel as [phone] [place] 7[address] 2021-07-15 2021-07-15 [facility] [id number] Univers 14:20:00 14:20:00 SHORTY ity o [facility] 2021-07-15 2021-07-15 Outpatient R [facility] [id number] Univers 14:20:00 14:20:00 SHORTY ity o [facility] 2021-07-15 2021-07-15 Outpatient R [facility] [id number] Univers 14:20:00 14:20:00 SHORTY y [facility] 2021-07-15 2021-07-15 Outpatient R [facility] [id number] Univers 14:20:00 14:20:00 [facility] 2021-07-14 2021-07-14 Susan [facility] 1.2.840.114 [id number] Univers 00:00:00 00:00:00 Wondiful A Health 350.1.13.10 ity of [place] 4.2.7.2.686 Emanuel as Professio [phone] Id dical nal [address] One 2021-07-10 2021-07-10 Outpatient Kautz_S DMG DMG [id number] Devoted 05:13:00 05:13:00 1015 [facility]ica l [facility] 2021-07-02 2021-07-02 [facility] 1.2.840.114 [id number] Univers 00:00:00 00:00:00 Wondiful A Health 350.1.13.10 ity of [place] 4.2.7.2.686 Emanuel as Professio [phone] Id dical nal [address] [facility] One 2021-06-15 2021-06-15 Orders Doctor CLAU 1.2.840.114 [id number] Univers 00:00:00 00:00:00 Only Unassigned, GRAYSON 350.1.13.10 ity of [facility] 4.2.7.2.686 Emanuel as [phone] [facility] [address] 2021-06-08 2021-06-08 Patient Grupo Garcia 1.2.840.114 [id number] Univers 00:00:00 00:00:00 Outreach Emily Chahal [place]av[place] 350.1.13.10 ity of [place] [phone] [place] 776406 [place] 2021-06-08 2021-06-08 Refill Vik Oliveira [facility] 1.2.840.114 [id number] Univers 00:00:00 00:00:00 Health 350.1.13.10 it y of [place] [phone] [place] [id number] [place] [facility] 2021-05-25 2021-05-25 Emergency [facility] ERT [id number] Univers 18:22:00 20:23:00 [facility] 2021-05-25 2021-05-25 [facility] ERT [id number] Univers 18:22:00 20:23:00 [facility] 2021-05-25 2021-05-25 [facility] ERT [id number] Univers 18:22:00 20:23:00 [facility] 2021-05-25 2021-05-25 Emergency X DREVER, [facility] ERT [id number] Univers 18:22:00 20:23:00 [facility] 2021-05-25 2021-05-25 Emergency X DREVER, [facility] ERT [id number] Univers 18:22:00 20:23:00 [facility] 2021-05-25 2021-05-25 Emergency Drever, [facility] 1.2.546.324 [id number] Univers 18:22:00 20:23:00 Laureen Truong [place] 350.1.13.10 ity [facility] 4.2.7.2.[address] [facility] [address] [phone] [place] 776404 [place] 2021-05-21 2021-05-21 Outpatient LAILA GOODWIN [facility] [id number] Univers 09:30:00 09:30:00 LAILA ORELLANA i [facility] 2021-05-19 2021-05-19 [facility] 1.2.840.114 [id number] Univers 00:00:00 00:00:00 [facility] 350.1.13.10 ity [facility] 4.2.7.2.686 [facility] [phone] Id dic[address] Office [facility] One 2021-05-14 2021-05-14 Outpatient SANJAY DIAZ [facility] [id number] Univers 09:00:00 09:00:00 ity [facility] 2021-05-09 2021-05-09 Outpatient DMG DMG [id number] Devoted 11:00:00 11:00:00 0814 Medica l Group 2021-05-08 2021-05-08 Outpatient Brock HENRIQUEZ [facility] [id number] Univers 07:37:21 23:59:00 CAPRICE [facility] 2021-05-08 2021-05-08 Outpatient Brock [facility] [id number] Univers 07:37:21 23:59:00 CAPRICE [facility] 2021-05-08 2021-05-08 Outpatient Brock HENRIQUEZ [facility] [id number] Univers 07:37:21 23:59:00 CAPRICE [facility] 2021-05-08 2021-05-08 Outpatient Brock HENRIQUEZ [facility] [id number] Univers 07:37:21 23:59:00 CAPRICE [facility] 2021-05-08 2021-05-08 Outpatient Brock BARR [facility] [id number] Univers 08:15:00 08:15:00 ISAC [facility] 2021-05-07 2021-05-07 Outpatient DMG DMG [id number] Devoted 12:00:00 12:00:00 0812 Medica l Group 2021-04-27 2021-04-27 Reffranchesca Pr[facility]adM[facility] 1.2.840.114 [id number] Univers 00:00:00 00:00:00 [facility] 350.1.13.10 it y of [place] 4.2.7.2.686 Emanuel as PROFESSIO [phone] Id dical NAL [address] OFFICE BUILDING ONE 2021-04-21 2021-04-21 Outpatient R NISA, [facility] [id number] Univers 15:45:00 15:45:00 WONSATURNINO itjay o [facility] 2021-04-07 2021-04-07 [address] [id number] Univers 09:20:00 09:20:00 RD [facility] 2021-04-02 2021-04-02 Outpatient R MOMO [facility] [id number] Univers 08:45:00 08:45:00 ISAC [facility] 2021-04-01 2021-04-01 Emergency [facility] ERT [id number] Univers 13:00:00 15:36:00 DESTINY [facility] 2021-04-01 2021-04-01 Emergency [facility] ERT [id number] Univers 13:00:00 15:36:00 DESTINY [facility] 2021-04-01 2021-04-01 Emergency [facility] ERT [id number] Univers 13:00:00 15:36:00 DESTINY [facility] 2021-04-01 2021-04-01 Outpatient R [facility] [id number] Univers 08:45:00 08:45:00 [facility] 2021-03-28 2021-03-28 Outpatient R BELLA [facility] [id number] Univers 09:40:00 09:40:00 CHELA ity o f [facility] 2021-03-27 2021-03-27 Outpatient R MARY JANE [facility] [id number] Univers 09:30:00 09:30:00 MATEO flores [facility] 2021-03-26 2021-03-26 Outpatient Brock BARR, [facility] [id number] Univers 15:15:00 15:15:00 ISAC itjay [facility] 2021-03-25 2021-03-25 Outpatient Brock COON, [facility] [id number] Univers 08:30:00 08:30:00 CORRY flores [facility] 2021-03-23 2021-03-23 Outpatient Brock VALIENTE, [facility] [id number] Univers 08:00:00 08:00:00 EMERY ity o f [facility] 2021-03-20 2021-03-20 Emergency X STEPHEN, K [facility] ERT [id number] Univers 19:09:00 19:47:00 ity [facility] 2021-03-20 2021-03-20 Emergency X STEPHEN, K [facility] ERT [id number] Univers 19:09:00 19:47:00 ity [facility] 2021-03-20 2021-03-20 Emergency X STEPHEN, K [facility] ERT [id number] Univers 19:09:00 19:47:00 ity [facility] 2021-03-18 2021-03-18 Outpatient Brock HENRIQUEZ, [facility] NUT [id number] Univers 00:00:00 00:00:00 CAPRICE jay [facility] 2021-03-12 2021-03-12 [address] [facility] [id number] Univers 08:30:00 08:30:00 ISAC jay [facility] 2021-03-11 2021-03-[address] [id number] Univers 16:15:00 16:15:00 [facility] 2021-03-10 2021-03-10 Susan [facility] 1.2.840.114 [id number] Univers 00:00:00 00:00:00 [facility] ScaleGrid 350.1.13.10 it y of [place] 4.2.7.2.686 [facility] [phone] [place] 932242 Branch OFFICE BUILDING 2021-02-25 2021-02-25 Outpatient Brock BARR [facility] [id number] Univers 14:30:00 14:30:00 [facility] 2021-02-25 2021-02-25 Telephone [facility] 1.2.063.720 [id number] 00:00:00 00:00:00 Sendil DmitriGabe [place] 350.1.13.10 [place] 4.2.7.2.686 [facility] [phone] nal 059 [facility] 2021-02-24 2021-02-24 Outpatient R NISA [facility] [id number] Univers 11:00:00 11:00:00 WONDIFUL ity o f [facility] 2021-02-19 2021-02-19 Outpatient R FLORENCE [facility] [id number] Univers 10:03:49 23:59:00 [facility] 2021-02-19 2021-02-19 Outpatient R FLORENCE [facility] [id number] Univers 00:00:00 00:00:00 [facility] 2021-02-17 2021-02-17 Outpatient R [facility] [id number] Univers 17:40:00 17:40:00 [facility] 2021-02-17 Outpatient Brock TENORIO [facility] [id number] Univers 17:40:00 17:17:33 ROGE [facility] 2021-02-17 2021-02-17 Outpatient Brock TENORIO [facility] [id number] Univers 17:40:00 17:17:33 [facility] 2021-02-17 2021-02-17 Outpatient Brock TENORIO [facility] [id number] Univers 17:40:00 17:17:33 ROGE [facility] 2021-02-10 2021-02-10 Outpatient R ATUL [facility] [id number] Univers 09:00:00 [facility]:00[facility] 2021-02-09 Outpatient Brock BARR [facility] [id number] Univers 14:45:00 14:45:00 [facility] 2021-02-09 2021-02-09 Outpatient R MOMO [facility] [id number] Univers 14:45:00 14:45:00 [facility] 2021-02-04 2021-02-04 Outpatient R JOAQUIMHERMILA BROCABernadette [facility] [id number] Univers 10:30:00 10:30:00 SOTOHERMILACABernadette [facility] 2021-02-03 2021-02-03 Outpatient R NISA [facility] [id number] Univers 16:30:00 16:30:00 WONDIFUL ity o f [facility] 2021-01-27 2021-01-27 Outpatient R NAV ANTONIO [facility] [id number] Univers 15:00:00 15:00:00 [facility]-01-21 2021-01-21 Outpatient R ATUL [facility] [id number] Univers 11:00:00 11:00:00 SENDIL [facility] 2021-01-20 2021-01-20 Outpatient R SANJAY SÁNCHEZ [facility] [id number] Univers 11:00:00 11:00:00 [facility] 2021-01-14 2021-01-14 Outpatient R RIK [facility] [id number] Univers 10:45:00 10:45:00 TRAY [facility] 2021-01-08 2021-01-08 Outpatient R MOMO [facility] [id number] Univers 08:45:00 08:45:00 [facility] 2021-01-06 2021-01-06 Outpatient R AIMEE [facility] [id number] Univers 11:00:00 11:00:00 SHORTY ity o f [facility] 2021-01-01 2021-01-01 Outpatient R NISA [facility] [id number] Univers 15:00:00 15:00:00 WONDIFUL ity o f [facility] 2021-01-01 2021-01-01 Outpatient R NISA [facility] [id number] Univers 15:00:00 15:00:00 WONDIFUL ity o f [facility] 2021-01-01 2021-01-01 Outpatient R NISA [facility] [id number] Univers 15:00:00 15:00:00 WONDIFUL ity o f [facility] 2021-01-01 2021-01-01 Outpatient R NISA, [facility] [id number] Univers 15:00:00 15:00:00 WONDIFUL ity o f [facility] 2020-12-13 2020-12-13 Outpatient [facility] [id number] Univers 08:25:00 08:25:00 ity [facility] 2020-12-13 2020-12-13 Outpatient R BELGICA, [facility] [id number] Univers 08:25:00 08:25:00 TAMMY [facility] 2020-12-13 2020-12-13 Outpatient R BELGICA, [facility] [id number] Univers 08:25:00 08:25:00 TAMMY ity [facility] 2020-12-13 2020-12-13 Outpatient R BELGICA, [facility] [id number] Univers 08:25:00 08:25:00 TAMMY ity [facility] 2020-12-02 2020-12-02 Outpatient R JAKE, [facility] [id number] Univers 09:00:00 09:00:00 LIANA ity [facility] 2020-12-02 2020-12-02 Outpatient R JAKE, [facility] [id number] Univers 09:00:00 09:00:00 LIANA ity [facility] 2020-12-02 2020-12-02 Outpatient R JAKE, [facility] [id number] Univers 09:00:00 09:00:00 LIANA ity [facility] 2020-12-02 2020-12-02 Outpatient R JAKE, [facility] [id number] Univers 09:00:00 09:00:00 LIANA ity [facility] 2020-11-22 2020-11-22 Outpatient R BELGICA, [facility] [id number] Univers 09:40:00 09:40:00 TAMMY ity [facility] 2020-11-22 2020-11-22 Outpatient R BELGICA [facility] [id number] Univers 09:40:00 09:40:00 TAMMY ity [facility] 2020-11-22 2020-11-22 Outpatient R BELGICA [facility] [id number] Univers 09:40:00 09:40:00 TAMMY y [facility] 2020-11-21 2020-11-21 Outpatient R DONOVAN [facility] [id number] Univers 14:00:00 14:00:00 BOOGIEBrock jay [facility] 2020-11-20 2020-11-20 Outpatient R LAILA ORELLANA [facility] [id number] Univers 15:00:00 15:00:00 LAILA ORELLANA i [facility] 2020-11-09 2020-11-09 Outpatient R OSMAR [facility] [id number] Univers 08:20:00 08:20:00 RD [facility] 2020-11-09 2020-11-09 Outpatient R OSMAR [facility] [id number] Univers 08:20:00 08:20:00 RD [facility] 2020-11-09 2020-11-09 Outpatient R OSMAR [facility] [id number] Univers 08:20:00 08:20:00 RD [facility] 2020-11-07 2020-11-07 Outpatient R VIK OLIVEIRA [facility] [id number] Univers 11:30:00 11:30:00 [facility]y [facility] [facility] 2020-11-06 2020-11-06 Outpatient R NISA [facility] [id number] Univers 08:15:00 08:15:00 WONDIFUL itjay o f [facility] 2020-10-16 2020-10-16 Outpatient R OSMAR [facility] [id number] Univers 18:00:00 18:00:00 RD [facility] 2020-10-02 2020-10-02 Outpatient R MOMO [facility] [id number] Univers 10:15:00 10:15:00 ISAC [facility] 2020-09-22 2020-09-22 Outpatient R SELF, [facility] [id number] Univers 08:00:00 08:00:00 EMERY ity o f [facility] 2020-09-15 2020-09-15 Outpatient R NISA, [facility] [id number] Univers 00:00:00 00:00:00 WONDIFUL ity o f [facility] 2020-09-15 2020-09-15 Outpatient R NISA, [facility] [id number] Univers 00:00:00 00:00:00 WONDIFUL ity o f [facility] 2020-09-14 2020-09-14 Outpatient R GREEN, [facility] [id number] Univers 08:40:00 08:40:00 ROGE [facility] 2020 2020 Outpatient R NISA, [facility] [id number] Univers 00:00:00 00:00:00 WONDIFUL ity o f [facility] 2020-09-10 2020-09-10 Outpatient R DUCKWORTH, [facility] [id number] Univers 08:00:00 08:00:00 SHANTI jay [facility] 2020-09-08 2020-09-08 Outpatient R SELF, [facility] [id number] Univers 08:00:00 08:00:00 EMERY ity o f [facility] 2020-09-04 2020-09-04 Outpatient R NISA, [facility] [id number] Univers 16:00:00 16:00:00 WONDIFUL ity o f [facility] 2020-08-25 2020-08-25 Outpatient R NISA, [facility] [id number] Univers 11:00:00 11:13:03 WONDIFUL ity o f [facility] 2020-08-25 2020-08-25 Outpatient R NISA, [facility] [id number] Univers 10:30:00 10:30:00 WONDIFUL ity o f [facility] 2020-08-06 2020-08-06 Outpatient R PATRICIO, [facility] [id number] Univers 10:20:00 10:20:00 BALJIT [facility] 2020-08-06 2020-08-06 Outpatient R PATRICIO, [facility] [id number] Univers 09:00:00 09:00:00 BALJIT ity of [facility] 2020-08-01 2020-08-01 Outpatient R MARY JANE [facility] [id number] Univers 10:00:00 10:00:00 MATEO itjay of [facility] 2020-07-18 2020-07-18 Outpatient R LAILA ORELLANA [facility] [id number] Univers 11:00:00 11:00:00 LAILA ORELLANA i ty [facility] 2020-07-17 2020-07-17 Outpatient R VIK OLIVEIRA [facility] [id number] Univers 12:00:00 12:00:00 ity [facility] 2020-07-14 2020-07-14 Outpatient R NISA [facility] [id number] Univers 10:45:00 10:45:00 WONDIFUL ity o f [facility] 2020-07-07 2020-07-07 Outpatient R MAKSIM [facility] [id number] Univers 08:30:00 08:30:00 AUBRIE jay [facility] 2020-06-27 2020-06-27 Outpatient R NISA [facility] [id number] Univers 15:15:00 15:15:00 WONDIFUL ity o f [facility] 2020-06-12 2020-06-12 Outpatient R MAKSIM [facility] [id number] Univers 15:45:00 15:45:00 AUBRIE [facility] 2020-06-05 2020-06-05 Outpatient R MOMO [facility] [id number] Univers 10:30:00 10:30:00 [facility] 2020-06-03 Outpatient R ATUL [facility] [id number] Univers 09:00:00 09:00:00 SENDLARISSA ity [facility] 2020-05-16 2020-05-16 Outpatient R VIK OLIVEIRA [facility] [id number] Univers 16:30:00 16:30:00 ity [facility] 2020-05-09 2020-05-09 Outpatient R [facility] [id number] Univers 10:20:00 10:20:00 ity [facility] 2020-04-21 2020-04-21 Outpatient R FARTUNCHANDNI, [facility] [id number] Univers 11:40:00 11:40:00 DORITA [facility] 2020-04-18 2020-04-18 Outpatient R ATUL, [facility] [id number] Univers 09:30:00 09:30:00 RICARDO ity [facility] 2020-04-15 2020-04-15 Outpatient R [facility] [id number] Univers 10:20:00 10:20:00 ity [facility] 2020-04-04 2020-04-04 Outpatient R [facility] [id number] Univers 10:00:00 10:00:00 ity of [facility] 2020-04-01 2020-04-01 Outpatient R [facility] [id number] Univers 08:00:00 [facility]00[facility] 2020-03-20 Outpatient R DOSS, [facility] [id number] Univers 10:00:00 10:00:00 FABRICIO [facility] 2020-03-10 2020-03-10 [address] [facility] [id number] Univers 08:45:00 08:45:00 CL [facility] 2020-03-03 2020-03-03 Outpatient R MAKSIM, [facility] [id number] Univers 08:00:00 08:00:00 AUBRIE [facility] 2020-01-22 2020-01-[address] [facility] [id number] Univers 15:45:00 15:45:00 ISAC [facility] 2020-01-22 2020-01-22 Outpatient R MOMO [facility] [id number] Univers 10:45:00 10:45:00 [facility] 2020-01-18 2020-01-18 Outpatient R SANJAY SÁNCHEZ [facility] [id number] Univers 11:30:00 11:30:00 ity [facility] 2020-01-11 2020-01-11 Outpatient R LAILA ORELLANA [facility] [id number] Univers 11:00:00 11:00:00 LAILA ORELLANA i ty [facility] 2020-01-10 2020-01-[address] [id number] Univers 10:00:00 10:00:00 WONDIFUL ity o f [facility] 2020-01-04 2020-01-04 Outpatient R VIK OLIVEIRA [facility] [id number] Univers 11:30:00 11:30:00 [facility] 2020-01-01 2020-01-01 Outpatient R [facility] [id number] Univers 08:00:00 08:00:00 [facility] 2019-12-21 2019-12-[address] [id number] Univers 09:30:00 09:30:00 WONDIFUL ity o f [facility] 2019-12-06 2019-12-06 [facility] [id number] Univers 11:00:00 11:00:00 FABRICIO [facility] 2019-11-30 2019-11-30 Out[facility] Brock [facility] [id number] Univers 10:30:00 10:30:00 [facility] 2019-11-29 2019-11-29 Outpatient Brock MOMO [facility] [id number] Univers 08:15:00 08:15:00 [facility] 2019-11-23 2019-11-23 Outpatient R [facility] [id number] Univers 08:00:00 08:00:00 [facility] Results Test Description Test Time Test Comments Results Result Comments Source COMP. METABOLIC PANEL (52302) 2022-10-29 21:16:00 Test Item Value Reference Range Interpretation Comme nts NA (test code = 2444055331) 140 mmol/L 135-145 K (test code = 6853256117) 4.1 mmol/L 3.5-5.0 CL (test code = 8361628570) 108 mmol/L 98-108 CO2 TOTAL (test code = 2004615001) 25 mmol/L 23-31 AGAP (test code = 6858881458) 7 2-16 BUN (test code = 6392916647) 7 mg/dL 7-23 GLUCOSE (test code = 1042303002) 112 mg/dL 70-110 H CREATININE (test code = 0.96 mg/dL 0.50-1.04 1631512814) TOTAL BILI (test code = 0.8 mg/dL 0.1-1.6 6635889034) CALCIUM (test code = 0803834363) 8.1 mg/dL 8.6-10.6 L T PROTEIN (test code = 4000202401) 6.3 g/dL 6.3-8.2 ALBUMIN (test code = 2203032595) 4.2 g/dL 3.5-5.0 ALK PHOS (test code = 3789273602) 94 U/L 34-122 ALTv (test code = 1742-6) 28 U/L 5-35 AST(SGOT) (test code = 0568631857) 36 U/L 13-40 eGFR (test code = 9458460389) 61.8 mL/min/1.73m2 AREN (test code = AREN) [...] tests). Lab Interpretation (test code = Abnormal 33478-9) [facility] WITH [id number] 21:11:40 Test Item Value Reference Range Interpretation [...] (test code = 86.2 fL 39.0-49.9 H 08286-5) RDW-CV (test code = 22.4 % 12.0-15.5 H 788-0) PLT (test code = 151 See_Comment L [Automated 777-3) message] The sy stem which generated this result transmitted reference range : 166 - 358 10*3/ ?L. The reference r stefanie was not used to interpret this result as normal/abnormal . MPV (test code = 12.4 fL 9.5-12.9 73491-8) NRBC/100 WBC (test 0.0 See_Comment [Automat ed code = 1748694431) message] The system which generated this result transmitted reference range : 0.0 - 10.0 /100 WBCs. The refer ence range was not u sed to interpret th is result as normal/abnormal . NRBC x10^3 (test code See_Comment [Auto mated = 2484519525) message] The s ystem which generated this result transmitted reference range : 10*3/?L. The reference range was not used to interpret this result as normal/abnormal . GRAN MAT (NEUT) % 69.5 % (test code = 770-8) IMM GRAN % (test code 0.70 % = 0391374071) LYMPH % (test code = 19.9 % 736-9) MONO % (test code = 7.5 % 5905-5) EOS % (test code = 1.7 % 713-8) BASO % (test code = 0.7 % 706-2) GRAN MAT x10^3(ANC) 2.86 10*3/uL 1.88-7.09 (test code = 9669819230) IMM GRAN x10^3 (test 0.03 10*3/uL 0.00-0.06 code = 9509505674) LYMPH x10^3 (test code 0.82 10*3/uL 1.32-3.29 L = 731-0) MONO x10^3 (test code 0.31 10*3/uL 0.33-0.92 L = 742-7) EOS x10^3 (test code = 0.07 10*3/uL 0.03-0.39 711-2) BASO x10^3 (test code 0.03 10*3/uL 0.01-0.07 = 704-7) Lab Interpretation Abnormal (test code = 34518-3) [facility]$[id number]-[id number] 10:00:00 Test Item Value Reference Range Interpretation Comments GLUCOSE-Q (test code 88 mg/dL 65-99 ? = 2345-7) Fasting referen ce interval UREA NITROGEN (BUN)-Q 14 mg/dL 7-25 (test code = 3094-0) CREATININE-Q (test 1.39 mg/dL 0.50-0.99 H code = 2160-0) EGFR-Q (test code = 47 See_Comment L The eGFR is based 41447-5) on the CKD-EPI 2020 equation. To calculate the n ew eGFR from a previous Creatinine or Cystatin Cresul t, go to [email or web address] [email or web address]/[email or web address] [email or web address]/[email or web address] ca lculator [Automated message] The system which [...] . SODIUM-Q (test code = 139 mmol/L 306-702 0044-2) POTASSIUM-Q (test 3.5 mmol/L 3.5-5.3 code = 2823-3) CHLORIDE-Q (test code 105 mmol/L 98-110 = 2075-0) CARBON DIOXIDE-Q 23 mmol/L 20-32 (test code = 8-9) CALCIUM-Q (test code 8.9 mg/dL 8.6-10.2 = 83971-5) AREN (test code = AREN) PERFORMED BY [employer] [place]; [address] [place] [address]; LORRIE QUIROZ MD Lab Interpretation Abnormal (test code = 05656-3) [facility]-Glucose [id number] 11:44:22 Test Item Value Reference Range Interpretation Comments POC-Glucose Meter (test 156 mg/dL 70-110 H : TE STED AT [facility] code = 1538) [address] [facility], [facility] 30: Cater[employer] Convention Services Manager/Techni waylon ID = [id number] for SREE MARTINEZ Lab Interpretation (test Abnormal code = 71470-0) [facility]-Glucose [id number] 11:44:22 Test Item Value Reference Range Interpretation Comments POC-Glucose Meter (test 156 mg/dL 70-110 H : TE STED AT [facility] code = 1538) [address] [facility], [facility] 30: [employer] Services Manager/Techni waylon ID = [id number] for SREE MARTINEZ Lab Interpretation (test Abnormal code = 59468-7) [facility]-GLUCOSE [id number] 11:44:22 Test Item Value Reference Range Interpretation Comments POC-GLUCOSE METER 156 mg/dL 70-110 H : TESTED A T [facility] 6720 (BEAKER) (test code = [place], 1538) [address]: [employer] Services Manager/Techni waylon ID = [id number] for SREE BLANCHARD POCT-GLUCOSE [id number] 08:01:18 Test Item Value Reference Range Interpretation Comments POC-GLUCOSE METER 116 mg/dL 70-110 H : [facility] (BEAKER) (test code = [facility], 1538) [address]: [employer] Services Manager/Techni waylon ID = [id number] for SREE BLANCHARD [id number] 05:04:32 Test Item Value Reference Range Interpretation Comments HAPTOGLOBIN (BEAKER) (test code = 30 mg/dL 14-258 366) [employer] Manager ID - NICHELLE LLACTATE DEHYDROGENASE (LDH)2022-10-25 04:52:08 Test Item Value Reference Range Interpretation Comments LACTATE DEHYDROGENASE (BEAKER) (test 416 U/L 125-220 H code = 635) [employer] Manager ID - NICHELLE [id number] 04:52:07 Test Item Value Reference Range Interpretation Comments MAGNESIUM (BEAKER) (test code = 2.0 mg/dL 1.6-2.6 627) [employer] Manager ID - NICHELLE LHEPATIC FUNCTION [id number] 04:52:07 Test Item Value Reference Range Interpretation [...] (test code = 18 U/L 6-55 347) [employer] Manager ID - NICHELLE LBASIC METABOLIC [id number] 04:52:06 Test Item Value Reference Range Interpretation [...] not appl icable for dialysis patien ts [employer] Manager ID - PIAYA LCBC W/PLT COUNT & AUTO [id number] 04:03:09 Test Item Value Reference Range Interpretation [...] PERCENT (BEAKER) (test code = 2801) RETICULOCYTE [id number] 04:03:06 Test Item Value Reference Range Interpretation Comments RETICULOCYTE COUNT PCT (BEAKER) (test 26.7 % 0.5-1.7 H code = 575) [employer] Manager ID - [id number]-GLUCOSE [id number] 23:24:20 Test Item Value Reference Range Interpretation Comments POC-GLUCOSE METER 129 mg/dL 70-110 H : TESTED A T [facility] 6720 (BEAKER) (test code = [place], 1538) [address]: Catering Convention Services Manager/Techni waylon ID = [id number] for ORIN BUTTS POCT-GLUCOSE [id number] 17:45:20 Test Item Value Reference Range Interpretation Comments POC-GLUCOSE METER 214 mg/dL 70-110 H : TESTED A T [facility] 6720 (BEAKER) (test code = [facility], 1538) 077[address]: Catering Convention Services Manager/Techni waylon ID = [id number] for HECTOR LOWEA POCT-GLUCOSE [id number] 11:53:05 Test Item Value Reference Range Interpretation Comments POC-GLUCOSE METER 154 mg/dL 70-110 H : TESTED A T [facility] 6720 (BEAKER) (test code = [facility], 1538) 47[address]: Catering Convention Services Manager/Techni waylon ID = [id number] for JEAN MARIE VILLALOBOS, NAVI POCT-GLUCOSE [id number] 07:48:48 Test Item Value Reference Range Interpretation Comments POC-GLUCOSE METER 116 mg/dL 70-110 H : TESTED A T [facility] 6720 (BEAKER) (test code = [facility], 1538) 486[address]: Catering Convention Services Manager/Techni waylon ID = [id number] for JEAN MARIE VILLALOBOS, NAVI HEPATIC FUNCTION [id number] 04:05:23 Test Item Value Reference Range Interpretation [...] (test code = 19 U/L 6-55 347) [employer] Services Manager ID - NEELAM WSpecimen slightly ictericLACTATE DEHYDROGENASE (LDH) 2022-10-24 04:05:23 Test Item Value Reference Range Interpretation Comments LACTATE DEHYDROGENASE (BEAKER) (test 410 U/L 125-220 H code = 635) [employer] Services Manager ID - NEELAM WC-REACTIVE [id number] 04:05:23 Test Item Value Reference Range Interpretation Comments C-REACTIVE PROTEIN (BEAKER) (test 0.38 mg/dL 0.00-0.50 code = 676) [employer] Services Manager ID - NEELAM [id number] 04:05:22 Test Item Value Reference Range Interpretation Comments MAGNESIUM (BEAKER) (test code = 2.1 mg/dL 1.6-2.6 627) [employer] Services Manager ID - NEELAM WBASIC METABOLIC [id number] 04:05:22 Test Item Value Reference Range Interpretation [...] eGF R is based on the CKD-EPI 2021 equation that d oes not use a race coefficientEsti mated GFR is not as accur ate as Creatinine Katelyn lovett in predicting glom erular filtration rate . Estimated GFR is not appl icable for dialysis patien ts [employer] Services Manager ID - NEELAM WSpecimen slightly [id number] 04:00:05 Test Item Value Reference Range Interpretation Comments HAPTOGLOBIN (BEAKER) (test code = 15 mg/dL 14-258 366) [employer] Services Manager ID - ADMINCBC W/PLT COUNT & AUTO [id number] 03:40:48 Test Item Value Reference Range Interpretation [...] IMMATURE GRANULOCYTES-RELATIVE 2.10 % 0.00-1.00 H PERCENT (RHEA) (test code = 2801) RETICULOCYTE [id number] 03:40:45 Test Item Value Reference Range Interpretation Comments RETICULOCYTE COUNT PCT (RHEA) (test 25.4 % 0.5-1.7 H code = 575) Catering Convention Services Manager ID - [id number]-GLUCOSE [id number] 22:02:38 Test Item Value Reference Range Interpretation Comments POC-GLUCOSE METER 142 mg/dL 70-110 H : TESTED A T [facility] 6720 (RHEA) (test code = [facility], 1538) 98676: Catering Convention Services Manager/Techni waylon ID = [id number] for KEIRA BERG POCT-GLUCOSE [id number] 17:37:11 Test Item Value Reference Range Interpretation Comments POC-GLUCOSE METER 168 mg/dL 70-110 H : TESTED A T [facility] 6720 (RHEA) (test code = [facility], 1538) 22906: Catering Convention Services Manager/Techni waylon ID = [id number] for JEAN MARIE VILLALOBOS, NAVI POCT-GLUCOSE [id number] 12:37:13 Test Item Value Reference Range Interpretation Comments POC-GLUCOSE METER 166 mg/dL 70-110 H : TESTED A T [facility] 6720 (RHEA) (test code = [facility], 1538) 41289: Catering Convention Services Manager/Techni waylon ID = [id number] for JEAN MARIE MCCORMACKO, NAVI Antibody [id number] 12:29:00 Test Item Value Reference Range Interpretation [...] transfus ion be required, Rh an d Gin pheno-matched, crossmatch comp atible RBCs will be is sued. Electronic Sign ature: Vik Renae M.D. [facility] Center[facility]ib[facility] [id number] 12:29:00 Test Item Value Reference Range Interpretation [...] transfus ion be required, Rh an d [place] pheno-matched, crossmatch comp atible RBCs will be is sued. Electronic Sign ature: Vik Renae M.D. [facility] Center[facility]SE [id number] 09:38:23 Test Item Value Reference Range Interpretation Comments POC-GLUCOSE METER 112 mg/dL 70-110 H : [facility] T [facility] 6720 (RHEA) (test code = [place], 1538) [address]: Catering Convention Services Manager/Techni waylon ID = [id number] for NAVI LOWE HEMOGLOBIN [id number] 08:54:11 Test Item Value Reference Range Interpretation Comments HEMOGLOBIN A1C < % See_Comment [Automated m essage] ELECTROPHORESIS (EARL) The system which (test code = 3811) generated this result transmitted ref erence range: <=5.6%. The reference range was not used to int erpret this result as normal/abnormal . "The A1c is measured using a NGSP-certified method. HbA1c value equal to or greater than 6.5% as thediagnosis cutoff for diabetes. An HbA1c value of 5.7- 6.4% indicates increased risk for diabetes (prediabetes)."[employer] Convention Services Manager ID - ADM [id number] 05:49:52 Test Item Value Reference Range Interpretation Comments FERRITIN (BEAKER) (test code = 371.94 ng/mL 5.00-275.00 H 361) C[employer] Convention Services Manager ID - NEIL [id number] 05:24:24 Test Item Value Reference Range Interpretation Comments HAPTOGLOBIN (BEAKER) (test code = < mg/dL 14-258 L 366) C[employer] Convention Services Manager ID - ADMINC-REACTIVE [id number] 05:15:33 Test Item Value Reference Range Interpretation Comments C-REACTIVE PROTEIN (BEAKER) (test 0.67 mg/dL 0.00-0.50 H code = 676) C[employer] Convention Services Manager ID - NEIL REIDEPATIC FUNCTION [id number] 05:15:32 Test Item Value Reference Range Interpretation [...] (test code = 20 U/L 6-55 347) C[employer]ing Convention Services Manager ID - NEIL GLACTATE DEHYDROGENASE (LDH)2022-10-23 05:15:32 Test Item Value Reference Range Interpretation Comments LACTATE DEHYDROGENASE (BEAKER) (test 443 U/L 125-220 H code = 635) C[employer] Convention Services Manager ID - NEIL GBASIC METABOLIC [id number] 05:15:31 Test Item Value Reference Range Interpretation [...] not appl icable for dialysis patien ts C[employer]ing Convention Services Manager ID - NEIL [id number] 05:15:31 Test Item Value Reference Range Interpretation Comments MAGNESIUM (BEAKER) (test code = 2.1 mg/dL 1.6-2.6 627) Catering Convention Services Manager ID - NEIL GCBC W/PLT COUNT & AUTO [id number] 04:59:58 Test Item Value Reference Range Interpretation [...] IMMATURE GRANULOCYTES-RELATIVE 1.60 % 0.00-1.00 H PERCENT (BEAKER) (test code = 2801) RETICULOCYTE [id number] 04:59:04 Test Item Value Reference Range Interpretation Comments RETICULOCYTE COUNT PCT (BEAKER) (test 25.8 % 0.5-1.7 H code = 575) Catering Convention Services Manager ID - [id number] ID - 6000POCT-GLUCOSE [id number] 22:53:45 Test Item Value Reference Range Interpretation Comments POC-GLUCOSE METER 161 mg/dL 70-110 H : TESTED A T [facility] 6720 (BEAKER) (test code = [place], 1538) 96[address]: Catering Convention Services Manager/Techni waylon ID = [id number] for DA UPHIN, [place]UCK[place] RAD, ABDOMEN/KUB, 1 VIEW [id number] 20:13:00Reason for exam:->abd pain [facility] LAN[facility]Y : 1975 Sex: FFINAL REPORT Abdomen x-ray Clinical Diagnosis: Abdominal painComparison: NoneViews: Three supine views of abdomen obtained. Findings/impression:Please note that the examination is limited secondary to patient's body habitus. Bowel gas pattern is nonspecific but appears nonobstructive. Cholecystectomy clips noted within the right upper quadrant. No acute osseous abnormality is id entified. Signed: Matt Weaver MDReport Verified Date/Time: 10/22/2022 20:13:39 D-DIMER 2022-10-22 17:02:14 [...] 95-100% range. PERIPHERAL BLOOD SMEAR - HOLD [id number] 13:47:13 Test Item Value Reference Range Interpretation Comments PERIPHERAL SMEAR SAVE Saved 1 slide at 1346 (BEAKER) (test code = 1815) [id number] 12:57:37 Test Item Value Reference Range Interpretation Comments HAPTOGLOBIN (BEAKER) (test code = < mg/dL 14-258 L 366) C[employer]ing Convention Services Manager ID - ADMINVITAMIN [id number] 12:33:39 Test Item Value Reference Range Interpretation Comments VITAMIN B12 (BEAKER) (test code = 1532 pg/mL 213-816 H 774) C[employer]ing Convention Services Manager ID - KDABDPEAJRJLR9034-01-19 12:33:39 Test Item Value Reference Range Interpretation Comments FERRITIN (BEAKER) (test code = 418.77 ng/mL 5.00-275.00 H 361) Catering Convention Services Manager ID - [id number] 12:15:37 Test Item Value Reference Range Interpretation Comments MAGNESIUM (BEAKER) (test code = 2.0 mg/dL 1.6-2.6 627) Catering Convention Services Manager ID - ADMINBILIRUBIN, [id number] 12:15:37 Test Item Value Reference Range Interpretation Comments BILIRUBIN DIRECT (BEAKER) (test 0.6 mg/dL 0.1-0.5 H code = 706) C[employer]ing Convention Services Manager ID - ADMINLACTATE DEHYDROGENASE (LDH)2022-10-22 12:15:37 Test Item Value Reference Range Interpretation Comments LACTATE DEHYDROGENASE (BEAKER) (test 460 U/L 125-220 H code = 635) [employer] ID - ADMINCOMPREHENSIVE METABOLIC [id number] 12:15:36 Test Item Value Reference Range Interpretation [...] not appl icable for dialysis patien ts [employer] ID - ADMINIRON, TIBC, % SAT. (WITHOUT FERRITIN)2022-10-22 12:07:17 Test Item Value Reference Range Interpretation Comments IRON (BEAKER) (test code = 547) 86.0 ug/dL 40.0-160.0 TOTAL IRON BINDING CAPACITY 306 ug/dL 250-450 (BEAKER) (test code = 769) IRON % SATURATION (2) (BEAKER) 28 % 20-55 (test code = 2590) [employer] Manager ID - ADMINRETICULOCYTE [id number] 12:06:15 Test Item Value Reference Range Interpretation Comments RETICULOCYTE COUNT PCT (BEAKER) (test 24.8 % 0.5-1.7 H code = 575) [employer] Manager ID - [id number] ID - [id number] 12:02:33 Test Item Value Reference Range Interpretation [...] mechanical heart valves.CBC W/PLT COUNT & AUTO [id number] 12:00:27 Test Item Value Reference Range Interpretation [...] 0.00-1.00 PERCENT (BEAKER) (test code = 2801) [id number] 11:58:50 Test Item Value Reference Range Interpretation Comments FIBRINOGEN LEVEL (BEAKER) (test 285 mg/dl 225-434 code = 658) THYROID STIMULATING [id number] 04:51:23 Test Item Value Reference Range Interpretation Comments TSH (test code = See_Comment Biotin has been [id number]) reported to cau se a negative bias, interpret resul ts relative to andrea glasgow's use of biotin. [Automated mess age] The system [employer] generated this result transmitted ref erence range: 0.45 - 4 .70 mIU/L. The refe rence range was not u sed to interpret this result as normal/abnor mal. Lab Interpretation (test Normal code = 20218-4) [facility] [id number] 04:26:53 Test Item Value Reference Range Interpretation Comments FREE T4 (test code = See_Comment [Autom ated message] [id number]) The system [employer] generated this result transmitted ref erence range: 0.78 - 2 .20 ng/dL:. The ref erence range was not u sed to interpret this result as normal/abnor mal. Lab Interpretation (test Normal code = 08141-5) [facility]. METABOLIC PANEL ([id number])2022-10-18 23:04:17 Test Item Value Reference Range Interpretation Comments NA (test code = 141 mmol/L 135-145 5645956177) K (test code = 5.1 mmol/L 3.5-5.0 H 7254256790) CL (test code = 109 mmol/L 98-108 H 6440344712) CO2 TOTAL (test code = 21 mmol/L 23-31 L 8689805176) AGAP (test code = 2-16 8343456408) BUN (test code = 7 mg/dL 7-23 5511296462) GLUCOSE (test code = 104 mg/dL 70-110 6659574920) CREATININE (test code = 1.41 mg/dL 0.50-1.04 H 8476148090) TOTAL BILI (test code = 0.8 mg/dL 0.1-1.1 9323311544) CALCIUM (test code = 9.1 mg/dL 8.6-10.6 9417696339) T PROTEIN (test code = 7.5 g/dL 6.3-8.2 1829428376) ALBUMIN (test code = 5.0 g/dL 3.5-5.0 0259261424) ALK PHOS (test code = 139 U/L 34-122 H 3282164646) ALTv (test code = 28 U/L 5-35 1742-6) AST(SGOT) (test code = 34 U/L 13-40 8579694901) eGFR (test code = mL/min/1.73m2 3273805603) AREN (test code = AREN) Association of [...] tests). Lab Interpretation Abnormal (test code = 85906-9) [facility] Test Item Value Reference Range Interpretation Comments LIPASE (test code = 7547374896) 97 U/L 0-220 Lab Interpretation (test code = Normal 27554-0) [facility] [id number] 22:34:52 Test Item Value Reference Range Interpretation [...] (test code = 76.8 fL 39.0-49.9 H 84467-9) RDW-CV (test code = 22.1 % 12.0-15.5 H 788-0) PLT (test code = See_Comment [Automated 777-3) message] The sy stem which generated this result transmitted reference range : 166 - 358 10*3/ ?L. The reference r stefanie was not used to interpret this result as normal/abnormal . MPV (test code = 12.4 fL 9.5-12.9 08583-4) NRBC/100 WBC (test See_Comment [Automat ed code = 6888708442) message] The system which generated this result transmitted reference range : 0.0 - 10.0 /100 WBCs. The refer ence range was not u sed to interpret th is result as normal/abnormal . NRBC x10^3 (test code See_Comment [Auto mated = 2292955236) message] The s ystem which generated this result transmitted reference range : 10*3/?L. The reference range was not used to interpret this result as normal/abnormal . GRAN MAT (NEUT) % 63.1 % (test code = 770-8) IMM GRAN % (test code 1.30 % = 2550064796) LYMPH % (test code = 26.3 % 736-9) MONO % (test code = 6.4 % 5905-5) EOS % (test code = 2.1 % 713-8) BASO % (test code = 0.8 % 706-2) GRAN MAT x10^3(ANC) 2.45 10*3/uL 1.88-7.09 (test code = 9579261929) IMM GRAN x10^3 (test 0.05 10*3/uL 0.00-0.06 code = 7988715393) LYMPH x10^3 (test code 1.02 10*3/uL 1.32-3.29 L = 731-0) MONO x10^3 (test code 0.25 10*3/uL 0.33-0.92 L = 742-7) EOS x10^3 (test code = 0.08 10*3/uL 0.03-0.39 711-2) BASO x10^3 (test code 0.03 10*3/uL 0.01-0.07 = 704-7) Lab Interpretation Abnormal (test code = 14761-0) [id number] 22:15:00 Test Item Value Reference Range Interpretation Comments POCT PREG (test code = 1605) NEgative On board controls acceptable with C pass Line (test code = 3574) POCT PREG LOT # (test code = 3575) [id number] POCT PREG TEST DATE (test code = 3576) Lab Interpretation (test code = Normal 48656-9) [facility] URINALYSIS, [id number] 16:16:00 Test Item Value Reference Range Interpretation [...] APPEAR (test code slightly cloudy = 3267) [facility] URINALYSIS, [id number] 16:16:00 Test Item Value Reference Range Interpretation [...] APPEAR (test code slightly cloudy = 3267) [facility] HEMOGLOBIN A1C [id number] 14:54:00 Test Item Value Reference Range Interpretation Comments POCT HBA1C (test code = 4548-4) 4.6 % 4-6 [facility] HEMOGLOBIN A1C [id number] 14:54:00 Test Item Value Reference Range Interpretation Comments POCT HBA1C (test code = 4548-4) 4.6 % 4-6 [facility] GLUCOSE (AUTOMATED)2022-03-02 13:11:54 Test Item Value Reference Range Interpretation Comments POCT GLU (test code = 6192379169) 137 mg/dL 70-110 H Lab Interpretation (test code = Abnormal 49399-6) [facility] GLUCOSE (AUTOMATED)2022-03-02 13:11:54 Test Item Value Reference Range Interpretation Comments POCT GLU (test code = 2400454401) 137 mg/dL 70-110 H Lab Interpretation (test code = Abnormal 93931-0) [facility] [id number] 12:59:00 Test Item Value Reference Range Interpretation Comments POCT Glu (age>30days) (test code = 137 mg/dL 70-110 A 3342) Lab Interpretation (test code = Abnormal 33451-1) [facility] [id number] 12:59:00 Test Item Value Reference Range Interpretation Comments POCT Glu (age>30days) (test code = 137 mg/dL 70-110 A 3342) Lab Interpretation (test code = Abnormal 03101-2) [facility] [id number] 12:48:00 Test Item Value Reference Range Interpretation Comments POCT PREG (test code = 1605) Negative On board controls acceptable with Yes C Line (test code = 3574) POCT PREG LOT # (test code = 3575) [id number] POCT PREG TEST DATE (test 2023-06-25 code = 3576) [facility] [id number] 12:48:00 Test Item Value Reference Range Interpretation Comments POCT PREG (test code = 1605) Negative On board controls acceptable with Yes C Line (test code = 3574) POCT PREG LOT # (test code = 3575) [id number] POCT PREG TEST DATE (test 2023-06-25 code = 3576) [facility]
--- NOTE | 2022-11-04 18:58 | EDPHYS ---
Physician Documentation [facility] Name: Linda Rahman Age: 47 yrs Sex: Female : 1975 Arrival Date: 11/04/2022 Time: 17:01 Bed 4 Private MD: ED Physician Merlin Blanco HPI: 11/04 17:50 This 47 yrs old Female presents to ER via EMS with complaints of Chest Pain. snw 17:50 The patient or guardian reports chest pain that is located primarily in the anterior snw chest wall, left. Onset: acutely. The pain does not radiate. Associated signs and symptoms: Pertinent positives: pain sharp in nature, reproducible. Historical: - Allergies: 17:03 Amoxicillin; ap3 17:03 Codeine; ap3 17:03 Demerol; ap3 17:03 Geodon; ap3 17:03 Meclizine; ap3 17:03 Tessalon Perles; ap3 - PMHx: 17:03 Anemia; Anxiety; Asthma; Chronic Abdominal Pain; Depression; diabetes mellitus; ap3 Hypothyroidism; Hypertensive disorder; Migraine; - PSHx: 17:03 Cholecystectomy; tubal ligation; ap3 - Immunization history:: Client reports receiving the 2nd dose of the Covid vaccine. - Social history:: Smoking status: Patient denies any tobacco usage or history of. ROS: 17:46 Constitutional: Negative for fever, chills, and weight loss, Eyes: Negative for injury, snw pain, redness, and discharge, ENT: Negative for injury, pain, and discharge, Neck: Negative for injury, pain, and swelling, Respiratory: Negative for shortness of breath, cough, wheezing, and pleuritic chest pain, Abdomen/GI: Negative for abdominal pain, nausea, vomiting, diarrhea, and constipation, Back: Negative for injury and pain, : Negative for injury, bleeding, discharge, and swelling, MS/Extremity: Negative for injury and deformity, Skin: Negative for injury, rash, and discoloration, Neuro: Negative for headache, weakness, numbness, tingling, and seizure, Psych: Negative for depression, anxiety, suicide ideation, homicidal ideation, and hallucinations. 17:46 Cardiovascular: Positive for chest pain, with movement, of the anterior aspect of left upper chest and mid-sternal area. Exam: 17:44 Head/Face: Normocephalic, atraumatic. Eyes: Pupils equal round and reactive to light, snw extra-ocular motions intact. Lids and lashes normal. Conjunctiva and sclera are non-icteric and not injected. Cornea within normal limits. Periorbital areas with no swelling, redness, or edema. ENT: Nares patent. No nasal discharge, no septal abnormalities noted. Tympanic membranes are normal and external auditory canals are clear. Oropharynx with no redness, swelling, or masses, exudates, or evidence of obstruction, uvula midline. Mucous membranes moist. Neck: Trachea midline, no thyromegaly or masses palpated, and no cervical lymphadenopathy. Supple, full range of motion without nuchal rigidity, or vertebral point tenderness. No Meningismus. Chest/axilla: Normal chest wall appearance and motion. Nontender with no deformity. No lesions are appreciated. 17:44 Respiratory: Lungs have equal breath sounds bilaterally, clear to auscultation and percussion. No rales, rhonchi or wheezes noted. No increased work of breathing, no retractions or nasal flaring. Abdomen/GI: Soft, non-tender, with normal bowel sounds. No distension or tympany. No guarding or rebound. No evidence of tenderness throughout. Back: No spinal tenderness. No costovertebral tenderness. Full range of motion. Skin: Warm, dry with normal turgor. Normal color with no rashes, no lesions, and no evidence of cellulitis. MS/ Extremity: Pulses equal, no cyanosis. Neurovascular intact. Full, normal range of motion. Neuro: Awake and alert, GCS 15, oriented to person, place, time, and situation. Cranial nerves II-XII grossly intact. Motor strength 5/5 in all extremities. Sensory grossly intact. Cerebellar exam normal. Normal gait. 17:44 Constitutional: The patient appears alert, awake, anxious. 17:44 Cardiovascular: Rate: tachycardic, Rhythm: irregular, Pulses: no pulse deficits are appreciated, Edema: is not appreciated, + inspiratory sharp pain, + reproducible pain. 17:44 Psych: Behavior/mood is cooperative, anxious, Affect is animated, Oriented to person, place, time. Vital Signs: 17:03 BP 114 / 67; Pulse 109; Resp 17; Temp 97.8(O); Pulse Ox 100% ; Weight 97.07 kg; ap3 17:48 BP 111 / 65; Pulse 101; Pulse Ox 96% on R/A; ap3 19:04 BP 116 / 65; Pulse 89; Resp 12; Pulse Ox 98% ; vg1 MDM: 17:11 Patient medically screened. snw 17:47 Data reviewed: vital signs, nurses notes, EKG. Test considered but Not performed: Other snw Details CT for PE considered 2nd to tachycardia, and sharp chest pain. However, pt denies SOB and SpO2 100%, Well's score low at 1.5. Counseling: I had a detailed discussion with the patient and/or guardian regarding: the historical points, exam findings, and any diagnostic results supporting the discharge/admit diagnosis. 19:43 Differential diagnosis: abnormal EKG, acute myocardial infarction, acute pericarditis, snw anxiety, esophagitis, pleurisy, unstable angina. The patient was not given aspirin in the Emergency Department. Patient reports taking aspirin within the past 24 hours. Care significantly affected by the following Social Determinants of Health: anxiety and some psych history. Response to treatment: the patient's symptoms have mildly improved after treatment. Special discussion: Based on the history and exam findings, there is no indication for further emergent testing or inpatient evaluation. I discussed with the patient/guardian the need to see the repair mechanic for further evaluation of the symptoms. I discussed with the patient/guardian the need to see the primary care provider for further evaluation of the symptoms. 11/04 17:24 Order name: Troponin High Sensitivity; Complete Time: 18:06 snw EC:24 Rate is 105 beats/min. Rhythm is regular. Left axis deviation noted. Q waves are snw Present in leads aVR, V1, V2. Clinical impression: Abnormal EKG without significant change and tachycardia, no noted change from previous. Administered Medications: 17:44 Drug: Ketorolac 30 mg Route: IM; Site: right deltoid; ap3 Disposition: 11/05 07:44 Co-signature as Attending Physician, Merlin Blanco MD I reviewed the patient's care rt provided by the Advanced Practice Provider and agree with the diagnosis and treatment plan. Disposition Summary: 11/04/22 18:57 Discharge Ordered Location: Home snw Condition: Stable snw Diagnosis - Chest pain, unspecified snw Followup: snw - With: Emergency Department - When: As needed - Reason: Worsening of condition Followup: snw - With: Private Physician - When: 2 - 3 days - Reason: Recheck today's complaints, Continuance of care, Re-evaluation by your physician Discharge Instructions: - Discharge Summary Sheet snw - Nonspecific Chest Pain, Adult snw - Chest Wall Pain snw - Gastroesophageal Reflux Disease, Adult snw Forms: - Medication Reconciliation Form snw - Thank You Letter snw - Antibiotic Education snw - Prescription Opioid Use snw Prescriptions: - Pepcid 20 mg Oral Tablet - take 1 tablet by ORAL route once daily; 20 tablet; Refills: 0, Product snw Selection Permitted Signatures: Dispatcher [employer] EDMS [place], ANDREAS-C OVERLOCKER-Csnw Adele Ring RN RN ap3 Merlin Blanco MD MD rt
--- NOTE | 2022-11-04 18:58 | ER ---
Nurse's Notes [facility] Name: Linda Rahman Age: 47 yrs Sex: Female : 1975 Arrival Date: 11/04/2022 Time: 17:01 Bed 4 Private MD: Diagnosis: Chest pain, unspecified Presentation: 11/04 17:03 Chief complaint: Patient states: she has chest pain that started last night, that is ap3 made worse when he coughs. patient reports having a cough for approx a few days. Coronavirus screen: Client presents with at least one sign or symptom that may indicate coronavirus-19. Ebola Screen: No symptoms or risks identified at this time. Initial Sepsis Screen: Does the patient meet any 2 criteria? No. Patient's initial sepsis screen is negative. Does the patient have a suspected source of infection? No. Patient's initial sepsis screen is negative. Risk Assessment: Do you want to hurt yourself or someone else? Patient reports no desire to harm self or others. Onset of symptoms was November 03, 2022. 17:03 Method Of Arrival: EMS: [facility] ap3 17:03 Acuity: HOLLEY 3 ap3 Triage Assessment: 17:03 General: Appears in no apparent distress. Behavior is calm, cooperative. Pain: ap3 Complains of pain in mid-sternal area Pain does not radiate. Pain began 1 day ago. Neuro: Level of Consciousness is awake, alert, obeys commands, Oriented to person, place, time, situation. Cardiovascular: Patient's skin is warm and dry. Respiratory: Reports cough that is Airway is patent Respiratory effort is even, unlabored, Respiratory pattern is regular, symmetrical. Historical: - Allergies: 17:03 Amoxicillin; ap3 17:03 Codeine; ap3 17:03 Demerol; ap3 17:03 Geodon; ap3 17:03 Meclizine; ap3 17:03 Tessalon Perles; ap3 - PMHx: 17:03 Anemia; Anxiety; Asthma; Chronic Abdominal Pain; Depression; diabetes mellitus; ap3 Hypothyroidism; Hypertensive disorder; Migraine; - PSHx: 17:03 Cholecystectomy; tubal ligation; ap3 - Immunization history:: Client reports receiving the 2nd dose of the Covid vaccine. - Social history:: Smoking status: Patient denies any tobacco usage or history of. Screenin:06 Abuse screen: Denies threats or abuse. Nutritional screening: No deficits noted. ap3 Tuberculosis screening: No symptoms or risk factors identified. 17:38 [facility] ED Fall Risk Assessment (Adult) History of falling in the last 3 months, ap3 including since admission Yes- physiologic fall (2 pts) Confusion or Disorientation No (0 pts) Intoxicated or Sedated No (0 pts) Impaired Gait No (0 pts) Mobility Assist Device Used No (0 pt) Altered Elimination No (0 pt). Vital Signs: 17:03 BP 114 / 67; Pulse 109; Resp 17; Temp 97.8(O); Pulse Ox 100% ; Weight 97.07 kg; ap3 17:48 BP 111 / 65; Pulse 101; Pulse Ox 96% on R/A; ap3 19:04 BP 116 / 65; Pulse 89; Resp 12; Pulse Ox 98% ; vg1 ED Course: 17:01 Patient arrived in ED. kc6 17:03 Adele Ring, ABDULLAHI is Primary Nurse. ap3 17:05 Triage completed. ap3 17:06 [place] FNP-C is PHCP. snw 17:06 Merlin Blanco MD is Attending Physician. snw 17:06 Arm band placed on right wrist. ap3 17:07 Patient maintains SpO2 saturation greater than 95% on room air. ap3 17:08 Patient has correct armband on for positive identification. Bed in low position. Call ap3 light in reach. Side rails up X2. steel rule inspector on. Pulse ox on. NIBP on. 17:10 Inserted saline lock: 20 gauge in left wrist, using aseptic technique. Blood collected. ap3 17:27 Troponin High Sensitivity Sent. iw 19:04 No provider procedures requiring assistance completed. IV discontinued, intact, vg1 bleeding controlled, No redness/swelling at site. Pressure dressing applied. Administered Medications: 17:44 Drug: Ketorolac 30 mg Route: IM; Site: right deltoid; ap3 Medication: 17:38 VIS not applicable for this client. ap3 Outcome: 18:57 Discharge ordered by . snw 19:04 Discharged to home ambulatory. vg1 19:04 Condition: good 19:04 Discharge instructions given to patient, Instructed on discharge instructions, follow up and referral plans. medication usage, Demonstrated understanding of instructions, follow-up care, medications, Prescriptions given X 1. 19:05 Patient left the ED. vg1 Signatures: [place], CHILDREN'S AUTHOR-C CHILDREN'S AUTHOR-Csnw Marychuy Galvez, RN RN iw Adele Ring RN RN ap3 Carole Blum RN RN vg1 Angela Allen RN RN kc6
[2022-11-04 19:15] VITALS: TEMP 97.8
[2022-11-04 19:39] VITALS: BP 116/65; O2SAT 98
== END 2022-11-04 19:05 | disposition home or self-care (01) ==
LOC: ER 16:59
DX: R07.89 Other chest pain (principal); I10 Essential (primary) hypertension; Z88.1 Allergy status to other antibiotic agents; Z88.5 Allergy status to narcotic agent; Z88.8 Allergy status to other drugs, medicaments and biological substances
CPT/HCPCS: 36415; 84484; 93005; 96372; 99285

== ENCOUNTER 2022-11-09 21:13 | Emergency (ER) | payer OTHER ==
--- OUTSIDE RECORDS SUMMARY | 2022-11-09 22:08 | XMS REPORT | Continuity of Care Document ---
:1975 Author Organization [facility] [place] t Address [address] [place] [address] Care Team Providers Name Role Phone TRAY JOLLY Primary Care Physician Unavailable CECILE MÁRQUEZ Attending Clinician Unavailable TRAY JOLLY Attending Clinician Unavailable BEVERLY CORNELIUS Attending Clinician Unavailable NAV ANTONIO Attending Clinician Unavailable Tray Jolly MD Attending Clinician SHENA PEREA Attending Clinician Unavailable Shena Perea DO Attending Clinician Osmar Araujo MD Attending Clinician Vik Ellison LMSW Attending Clinician OSMAR ARAUJO Attending Clinician Unavailable Ashlie HOLLINS, Lisandro Attending Clinician [phone] Jose Antonio HOLLINS, Livia Campos Attending Clinician Pantera Navarro MD Attending Clinician PANTERA NAVARRO Attending Clinician Unavailable GREG JACKSON Attending Clinician Unavailable Mi FERNANDO, Kvng Gutiérrez Attending Clinician Unavailable Louis JOHNS, Kemal Packer Attending Clinician Geovanny Willis MD Attending Clinician Vicki Saavedra MD Attending Clinician Vern Bernardo DO Attending Clinician [phone], [facility] Attending Clinician Unavailable Beverly Joy Attending Clinician ARNOLDO ELIZABETH Attending Clinician Unavailable Doctor Unassigned, [place] Attending Clinician Unavailable LAYNE YI Attending Clinician [...] Clinician Arnoldo Elizabeth MD Attending Clinician Jessie NGUYEN, Genesis Shah Attending Clinician GABRIELLA SALAS Attending Clinician Unavailable ANDREA PAULA Attending Clinician Unavailable Yumiko NI, Sanjay Attending Clinician Gramm ELECTRICAL JOURNEYMAN, Corry A Attending Clinician GRAMM, CORRY A Attending Clinician Unavailable Florence HOLLINS, Caprice Fleming Attending Clinician Laith RN, Caprice Attending Clinician Unavailable Pob, [facility] Main Attending Clinician Unavailable Jorge Edmondson Attending Clinician Unavailable SHORTY YU Attending Clinician Unavailable Eladia Attending Clinician Unavailable Emily Garcia MA Attending Clinician Unavailable LAUREEN MILLAN Attending Clinician Unavailable Monty NI, Laureen Truong Attending Clinician LAILA ORELLANA Attending Clinician Unavailable LAILA ORELLANA Attending Clinician Unavailable Rd Prasad MD Attending Clinician RD PRASAD Attending Clinician Unavailable CHELA BLANCO Attending Clinician Unavailable EMERY VALIENTE Attending Clinician Unavailable Tatiana MITCHELL Attending Clinician Unavailable Daria Zaman Attending Clinician Unavailable ROGE TENORIO Attending Clinician Unavailable RICARDO POLLARD K.HGabe Attending Clinician Unavailable ATAPAULINA, HERMILAHIL Jerrica Attending Clinician Unavailable SOTO STRAHIL Jerrica Attending Clinician Unavailable TAMMY LINDO Attending Clinician Unavailable LIANA JOSEPH Attending Clinician Unavailable LAKISHA MAN Attending Clinician Unavailable SHANTI DUCKWORTH Attending Clinician Unavailable BALJIT CURRY Attending Clinician Unavailable AUBRIE SCHAEFFER Attending Clinician Unavailable DORITA MORE Attending Clinician Unavailable FABRICIO DOSS Attending Clinician Unavailable CL DEGROOT Attending Clinician Unavailable CECILE MÁRQUEZ Admitting Clinician Unavailable LIVIA BRADY Admitting Clinician Unavailable Vicki aSavedra MD Admitting Clinician VICKI SAAVEDRA Admitting Clinician Unavailable STELLA WORLEY Admitting Clinician Unavailable Cecile Márquez MD Admitting Clinician MATEO DE LA TORRE Admitting Clinician Unavailable DESTINY ONEILL Admitting Clinician Unavailable Bradfordsonal_Mitzy Admitting Clinician Unavailable CAPRICE HENRIQUEZ Admitting Clinician Unavailable Payers Payer Name Policy Type Policy Number Effective Date Expiration Date Mitzy [facility] D[facility] [id number] 2021 COMP CHOICE PPO 00:00:00 DSNP [facility] PL[facility] [id number] 2021 00:00:00 MEDICAID [facility] [id number] 2016 00:00:00 [employer] [id number] 2022 00:00:00 DEVOTED HEALTH DAY8 2021 (MEDICARE 00:00:00 REPLACEMENT HMO) [employer] [id number] 2020 BEHAVIORAL 00:00:00 SOLUTIONS Problems Condition Condition [...] Active Uni vers 1-24 ity of 00:00: [place] 00 Medical Branch Allergic Allergic Disease Active Unive rs rhinitis rhinitis -24 ity of 00:00: [place] 00 Medical Branch (HFpEF) (HFpEF) Disease Active Univers heart heart 23 ity of failure failure 00:00: [place] with [...] d 1-20 [place] of abdominal abdominal 00:[place] pain [place] 00 [place] Incontinen Incontinen Disease Active U nivers ce of ce of 1-20 ity of feces [place] fecal fecal 00 Medical urgency urgency Branch Stress Stress Disease Active Univers 1-20 ity of 00:00: Medical Branch Nausea Nausea Disease Active Univers 1-20 ity of 00:00: [place] [facility] Gastritis Gastritis Disease Active Uni vers without without 1-20 [place]y of bleeding, bleeding, [place] unspecifie unspecifie 00 Me dical d d Branch chronicity chronicity , , unspecifie unspecifie d d gastritis gastritis type type Overflow Overflow Disease Active Unive rs diarrhea diarrhea 1-20 ity of 00:00: [place] [facility] Allergy, Allergy, Disease Active 2021-09 Unive rs subsequent subsequent 2-09 it y of encounter encounter 00:[place] Poor Poor Disease Active 2021-09 Univers dentition dentition 2-09 ity of requiring requiring 00:00: [place] [...] of metaplasia metaplasia 00:00: g of this [place] 00 note Medical might be Branch different from the original. Added automatic ally from request for surgery [id number] Chronic Chronic Disease Active Overview: Univ ers superficia superficia 4-05 Formattin ity of l l 00:00: g of this [place] gastritis gastritis 00 note Medi cipriano without without might be Branch bleeding bleeding different from the original. 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 Added automatic ally from request for surgery [id number] Indigestio Indigestio Disease Active 2020-09 Overview : Univers n n 2-15 Formattin ity of 00:00: g of this [place] note Medical might be Branch different from the original. Added automatic ally from request for surgery [id number] Bloating Bloating Disease Active 2020-09 Overview: Un jerrod 2-15 Formattin ity of 00:00: g of this [place] 00 note Medical might be Branch different from the original. Added automatic ally from request for surgery [id number] Dental Dental Disease Active Univers caries caries [...] Disease Active Univers 7-10 ity of 00:00: [place] [facility] Twitching Twitching Disease Active Uni vers 7-10 ity of 00:00: [place] [facility] Asthma, Asthma, Disease Active Univers mild mild 5-23 ity of persistent persistent 00:00[place] [facility] [place] Fatty Fatty Disease Active Univers liver liver 3-24 ity of 00:00: [place] [facility] Hepatomega Hepatomega Disease Active U nivers ly ly 3-24 ity of 00:00: [place] [facility] Obesity Obesity Disease Active Univers (BMI (BMI 2-12 ity of 30-39.9) 30-39.9) 00:00: [place] [facility] Sinus Sinus Disease Active Univers tachycardi tachycardi 1-02 it y of a a 00:00: [place] [facility] Dyslipidem Dyslipidem Disease Active 2015-09 U nivers ia ia 1-22 ity of 00:00: [place] [facility] Vitamin Vitamin Disease Active 2015-09 [...] tubal 2-05 ity of ligation ligation 00:00: [place] [facility] 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 00:[place] disorder, disorder, 00 Medi cipriano in in Branch remission remission Hypothyroi Hypothyroi Disease Active U nivers d d 2-05 ity of 00:00: [place] 00 [facility] Essential Essential Disease Active Uni vers hypertensi hypertensi 2-05 it y of on, benign on, benign 00:00[place] [facility] Well woman Well woman Disease Active U nivers exam exam 2-05 ity of 00:00: [place] [facility] Chest pain Chest pain Disease Active U nivers 9-13 ity of 00:00: [place] 00 [facility] Peripheral Peripheral Disease Active U nivers neuropathy neuropathy it y of [facility] 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 ity of [facility] PCOS PCOS Disease Active Univers (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 But pt still eats it. TOMATO DRUG Active Low Other-Cmnt Univer s INGREDI 04-03 ity of 00:00: [place] 00 [facility] Branch Codeine Drug Active Itching [facility]: Medical 00 [place] CODEINE Allergy Active Low Itching [facility]17 [facility] 00[facility] Medical 00 Center Codeine Propensi Active Itching Univer s ty to 1-17 ity of adverse 00:00: [place] reaction 00 [facility] CODEINE DRUG Active Low ITCHING Univers INGREDI 1-17 ity of 00:00: [place] 00 [facility] Lorazepa Drug Active Swelling 2016-09 Hard to [facility] Allergy [facility]02 [facility] Center LORAZEPA Allergy Active High Swelling [facility]02 [facility] 00:00: [...] 00 Center DIPHENHY Allergy Active High Swelling 2017-0 CH[facility] [...] High Swelling 2017-0 [facility] ATE 2-09 [facility] 00:[facility]: Medical 00 Center Benzonat Propensi [...] 9-04 reaction( [facility] Zip[facility] Active Hives 2015-[address] [facility] Hcl Allergy 05-30 [facility] 00:[facility]: Medical 00 Center Amoxicil Drug Active Hives 2015-[address] [facility] franca Allergy - [facility] 00:00: Medical 00 Center AMOXICIL Allergy Active High Hives 2015-[address] [facility] FRANCA -04 [facility] 00:00: Medical 00 Center MEPERIDI Allergy Active High 2015-[address] [facility] [facility] HCL 9-04 [facility] 00:00: [...] 2015-0 Univer s one Hcl ty to 04 ity of adverse 00:00: [place] reaction 00 Medical s Branch MEPERIDI DRUG Active High Hallucinates 2015-0 Un jerrod NE HCL INGREDI 05-30 ity of 00:00: [place] 00 Medical Branch ZIPRASID DRUG Active High Hives 2015-0 Univers ONE HCL INGREDI 05-30 ity of 00:00: [place] 00 Medical Branch AMOXICIL DRUG Active High Hives 2015-0 Univers FRANCA INGREDI - ity of 00:00: [place] 00 Medical Branch Social History Social Habit Start Date Stop Date Quantity Comments Source History SDOH [facility] Alcohol Std Drinks Medica l Center History SDOH [facility] Alcohol Binge Medical Navin ter History SDOH [facility] Alcohol Comment Medical C enter History SDOH Social Unive rsity of Connections [facility] Med ical Together Branch History SDOH Social Unive rsity of Connections [facility] Medical Branch History SDOH Social Unive rsity of [facility] Medical Membership Branch History SDOH Social Unive rsity of [facility] Medical Meetings Branch Exposure to 2022-10-19 2022-10-29 Not sure University of SARS-CoV-2 (event) 00:00:00 14:20:00 [facility] Tobacco use and 2022-10-22 2022-10-[address] [facility] kes exposure 00:00:00 00:00:00 [facility] Alcohol intake 2022-10-22 2022-10-[address] [facility] es 00:00:00 00:00:00 non-drinker Medical Alinee r (finding) History [facility] 2022-10-22 2022-10-[address] [facility] Alcohol Frequency 00:00:00 00:00:00 Medical Center History [facility] Social 2022-10-19 2022-10-19 5 Unive rsity of Connections Phone 00:00:00 00:00:00 [facility] edical Branch History SDNY Social 2022-10-19 2022-10-19 7 Unive rsity of Connections Living 00:00:00 00:00:00 [place] [facility] History SDOH 2022-10-19 2022-10-19 0 University o f Physical Activity 00:00:00 00:00:[address] [facility] History [facility] 2022-10-19 2022-10-19 0 University o f Physical Activity 00:00:00 00:00:[address] [facility] MPS Branch History SDNY 2022-10-19 2022-10-19 4 University o f Financial 00:00:00 00:00:00 [place] [facility] History SDNY Food 2022-10-19 2022-10-19 1 Univers ity of Worry 00:00:00 00:00:00 [place] [facility] History SDOH Food 2022-10-19 2022-10-19 1 Univers ity of Scarcity 00:00:00 00:00:00 [place] [facility] History SDNY 2022-10-19 2022-10-19 2 University o f Transport Med 00:00:00 00:00:00 [place] Medic al Branch History SDNY 2022-10-19 2022-10-19 2 University o f Transport Non-Med 00:00:00 00:00:[address] [facility] Tobacco Comment 2022-06-17 2022-06-17 10 years ago Univers ity of 00:00:00 00:00:00 [facility] Branch Cigarettes smoked 2022-06-17 2022-06-17 Univers ity of current (pack per 00:00:00 00:00:00 [facility] day) - Reported Branch Cigarette 2022-06-17 2022-06-17 University of pack-years 00:00:00 00:00:00 [facility] History of tobacco 1982-10-20 2007-10-20 Cigarette Smoker University of use 00:00:00 00:00:00 [facility] Sex [birth year] At [birth year] LORENZO Rubalcava 00:00:00 00:00:00 Medical Center Smoking Status Start Date Stop Date Source Never smoker [facility] Ex-smoker 2022-06-17 00:00:00 2022-06-17 00:00:00 [facility] Medications Ordered Filled Start Stop Current Ordering Indication Dosage Frequency Signature Comments Components Source Medication Medication Date Date Medication? Clinician (SIG) Name Name MICHAEL Yes [id number] INJECT 1 Univers MIN 1,000 2-07 ML ity of mcg/mL 00:00: INTRAMUSCU [place] injection 00 LARLY Medical EVERY TWO Branch WEEKS semaglutide Yes [id number] Inject Univers (OZEMPIC) 2-07 0.25 mg ity of 0.25 mg or 00:00: [place] the [place] 0.5 mg(2 00 skin Medical mg/1.5 mL) weekly. Branch PnIj CYANOCOBALA Yes [id number] INJECT 1 Univers MIN 1,000 2-07 ML ity of mcg/mL 00:00: INTRAMUSCU [place] injection 00 LARLY Medical EVERY TWO Branch WEEKS semaglutide Yes [id number] Inject Univers (OZEMPIC) 2-07 0.25 mg ity of 0.25 mg or 00:00: [place] the [place] 0.5 mg(2 00 skin Medical mg/1.5 mL) weekly. Branch PnIj CYANOCOBALA Yes [id number] INJECT 1 Univers MIN 1,000 2-07 ML ity of mcg/mL 00:00: INTRAMUSCU [place] injection 00 LARLY Medical EVERY TWO Branch WEEKS semaglutide Yes [id number] Inject Univers (OZEMPIC) 2-07 0.25 mg ity of 0.25 mg or 00:00: [place] the [place] 0.5 mg(2 00 skin Medical mg/1.5 mL) weekly. Branch PnIj polyethylen 2023-0 Yes 17g Q.5D Take [address] e glycol 1-30 by mouth 2 [facility] (GLYCOLAX) 14:26: (two) Medica l 17 gram 13 times Center packet daily. lactulose 2023-0 Yes 30g Q.5D Take 30 g [facility] [...] 13 for Center Headaches or Migraine. busPIRone 3-0 Yes 20mg Q.5D Take [address] (BUSPAR) 10 1-30 by mouth 2 Brun[facility] kes MG tablet 14:26: (two) Medical 13 times Center daily. metoclopram 3-0 Yes 10mg Take [address] dariela HCl 1-30 by mouth 4 [facility] (REGLAN) 10 14:26: (four) Medi cipriano MG tablet 13 times Center daily before meals and nightly. montelukast 3-0 Yes 10mg Take [address] (SINGULAIR) 1-30 by mouth Luke s 10 mg 14:26: in the Medical tablet 13 morning. Center cyanocobala 3-0 Yes 1000ug Inject [facility] min [...] C HI St acid, 1-30 mg by [employer] vitamin C, 14:26: mouth Medica l (ascorbic [...] gram 13 times Center packet daily. lactulose 2023-0 Yes 30g Q.5D Take 30 g CHI [...] the Medical tablet 13 morning. Center cyanocobala 2022-0 Yes 1000ug Inject [facility] min 1-30 1,000 mcg [facility] (VITAMIN 14:26: intramuscu Med ical B-12) 1,000 13 larly once Ce nter mcg/mL every 2 injection weeks. levothyroxi 2022-0 Yes 50ug Take [address] ne 1-30 mcg by [facility]ukes (SYNTHROID, 14:26: mouth Medic al LEVOTHROID) 13 Every Center 50 MCG morning on tablet an empty stomach. dilTIAZem 3-0 Yes 120mg Q.5D Take [address] [...] 10 MG 14:26: daily. Medical tablet 13 [place] losartan 0 Yes 50mg Take [address] (COZAAR) 50 1-30 by mouth 2 Brun[facility] kes MG tablet 14:26: (two) Medical 13 times Center daily before meals. ascorbic 2022-0 Yes 1000mg QD Take 1,[address] acid, 1-30 mg by [facility] vitamin C, 14:26: mouth Medica l (ascorbic 13 daily. Center acid with derrell hips) 1000 MG tablet citalopram 0 Yes 40mg QD Take [address] (CeleXA) 40 1-30 by mouth Luke s MG tablet 14:26: daily. Medica l 13 [place] topiramate 0 Yes 50mg Q.5D Take [address] (TOPAMAX) 1-30 by mouth 2 Luke s 25 MG 14:26: (two) Medical tablet 13 times Center daily. rosuvastati Yes 10mg 10 mg, Univ ers n (CRESTOR) 1-25 Oral, QHS, it y of tablet 10 03:00: First dose [place] mg 00 on [facility] 10/19/22 at Branch 2100, Until Discontinu ed, Routine lactulose Yes 30mL 30 mL, Univer s (CEPHULAC) 1-25 Oral, BID, ity of solution 30 02:00: First dose [place] mL 00 (after Medical last Branch modificati on) on [facility] 10/19/22 at 2000, Until Discontinu ed, Routine SUMAtriptan 2022- No 50mg 50 mg, Uni vers (IMITREX) 10-1924 Oral, ity of tablet 50 20:15: 21:00 ONCE, 1 [place] mg 00 :00 dose, On [facility] 10/19/22 at 1415, Routine NaCl 0.9% 2022- No 500mL at 999 Univ ers (NS) bolus 10-1924 mL/hr, 500 it y of infusion 19:30: 18:59 mL, IV [place] 500 mL 00 :00 Piggyback, Medical ONCE, 1 Branch dose, On Tue10/19/22 at 1330, STAT MULTIVIT Yes Take by Univer s &MINERALS/F 1-24 mouth. ity of ERROUS FUM 17:49: [place] (MULTI 09 Medical VITAMIN Branch ORAL) METHYLCELLU Yes Univer s LOSE (FIBER 1-24 ity of THERAPY 17:49: [facility]) [address] [place] [address] Branch DOCUSATE Yes Take by Univer s SODIUM 1-24 mouth. ity of (COLACE 17:49: [place] ORAL) [address] [place] [address] Branch vitamin C Yes 1000mg Take 1,000 Univers with derrell 1-24 mg by ity of hips 1,000 17:49: mouth [place] mg tablet 09 daily. [facility] Branch CRANBERRY Yes Take by Unive rs FRUIT 1-24 mouth ity of EXTRACT 17:49: daily. [place] (CRANBERRY 09 Medical ORAL) [place] MULTIVIT Yes Take by Univer s &MINERALS/F 1-24 mouth. ity of ERROUS FUM 17:49: [place] ([facility] 09 Medical VITAMIN Branch ORAL) METHYLCELLU Yes Univer s LOSE (FIBER 1-24 ity of THERAPY 17:49: [facility]) [address] [place] [address] Branch DOCUSATE Yes Take by Univer s SODIUM 1-24 mouth. ity of (COLACE 17:49: [place] ORAL) [address] [place] [address] vitamin C Yes 1000mg Take 1,000 Univers with derrell 1-24 mg by ity of hips 1,000 17:49: mouth [place] mg tablet 09 daily. [facility] Branch CRANBERRY Yes Take by Unive rs FRUIT 1-24 mouth ity of EXTRACT 17:49: daily. [place] (CRANBERRY 09 Medical ORAL) [place] MULTIVIT Yes Take by Univer s &MINERALS/F 1-24 mouth. ity of ERROUS FUM 17:49: [place] (MULTI 09 Medical VITAMIN Branch ORAL) METHYLCELLU Yes Univer s LOSE (FIBER 1-24 ity of THERAPY 17:49: [facility]) [address] [place] [address] Branch DOCUSATE Yes Take by Univer s SODIUM 1-24 mouth. ity of (COLACE 17:49: [place] ORAL) [address] [place] [address] Branch vitamin C Yes 1000mg Take 1,000 Univers with derrell 1-24 mg by ity of hips 1,000 17:49: mouth [place] mg tablet 09 daily. Medical Branch CRANBERRY Yes Take by Unive rs FRUIT 1-24 mouth ity of EXTRACT 17:49: daily. [place] (CRANBERRY 09 Medical ORAL) [place] MULTIVIT Yes Take by Univer s &MINERALS/F 1-24 mouth. ity of ERROUS FUM 17:49: [place] (MULTI 09 Medical VITAMIN Branch ORAL) METHYLCELLU Yes Univer s LOSE (FIBER 1-24 ity of THERAPY 17:49: [place] MISC) 09 Medical Branch DOCUSATE Yes Take by Univer s SODIUM 1-24 mouth. ity of (COLACE 17:49: [place] ORAL) 09 [facility] Branch vitamin C Yes 1000mg Take 1,000 Univers with derrell 1-24 mg by ity of hips 1,000 17:49: mouth [place] mg tablet 09 daily. Medical Branch CRANBERRY Yes Take by Unive rs FRUIT 1-24 mouth ity of EXTRACT 17:49: daily. [place] (CRANBERRY 09 Medical ORAL) [place] MULTIVIT Yes Take by Univer s &MINERALS/F 1-24 mouth. ity of ERROUS FUM 17:49: [place] ([facility] 09 Medical VITAMIN Branch ORAL) METHYLCELLU Yes Univer s LOSE (FIBER 1-24 ity of THERAPY 17:49: [facility]) [address] [place] [address] Branch DOCUSATE Yes Take by Univer s SODIUM 1-24 mouth. ity of (COLACE 17:49: [place] ORAL) [address] [place] [address] Branch vitamin C Yes 1000mg Take 1,000 Univers with derrell 1-24 mg by ity of hips 1,000 17:49: mouth [place] mg tablet 09 daily. Medical Branch CRANBERRY Yes Take by Unive rs FRUIT 1-24 mouth ity of EXTRACT 17:49: daily. [place] (CRANBERRY 09 Medical ORAL) Branch MULTIVIT Yes Take by Univer s &MINERALS/F 1-24 mouth. ity of ERROUS FUM 17:49: [place] ([facility] 09 Medical VITAMIN Branch ORAL) METHYLCELLU Yes Univer s LOSE (FIBER 1-24 ity of THERAPY 17:49: [facility]) 09 Medical Branch DOCUSATE Yes Take by Univer s SODIUM 1-24 mouth. ity of (COLACE 17:49: [place] ORAL) 09 Medical Branch vitamin C Yes 1000mg Take 1,000 Univers with derrell 1-24 mg by ity of hips 1,000 17:49: mouth [place] mg tablet 09 daily. Medical Branch CRANBERRY Yes Take by Unive rs FRUIT 1-24 mouth ity of EXTRACT 17:49: daily. [place] (CRANBERRY 09 Medical ORAL) Branch MULTIVIT Yes Take by Univer s &MINERALS/F 1-24 mouth. ity of ERROUS FUM 17:49: [place] (MULTI 09 Medical VITAMIN Branch ORAL) METHYLCELLU Yes Univer s LOSE (FIBER 1-24 ity of THERAPY 17:49: [facility]) Medical Branch DOCUSATE Yes Take by Univer s SODIUM 1-24 mouth. ity of (COLACE 17:49: [place] ORAL) Medical Branch vitamin C Yes 1000mg Take 1,000 Univers with derrell 1-24 mg by ity of hips 1,000 17:49: mouth [place] mg tablet 09 daily. Medical Branch CRANBERRY Yes Take by Unive rs FRUIT 1-24 mouth ity of EXTRACT 17:49: daily. [place] (CRANBERRY 09 Medical ORAL) Branch MULTIVIT Yes Take by Univer s &MINERALS/F 1-24 mouth. ity of ERROUS FUM 17:49: [place] (MULTI 09 Medical VITAMIN Branch ORAL) METHYLCELLU Yes Univer s LOSE (FIBER 1-24 ity of THERAPY 17:49: [facility]) Medical Branch DOCUSATE Yes Take by Univer s SODIUM 1-24 mouth. ity of (COLACE 17:49: [place] ORAL) Medical Branch vitamin C Yes 1000mg Take 1,000 Univers with derrell 1-24 mg by ity of hips 1,000 17:49: mouth [place] mg tablet 09 daily. Medical Branch CRANBERRY Yes Take by Unive rs FRUIT 1-24 mouth ity of EXTRACT 17:49: daily. [place] (CRANBERRY 09 Medical ORAL) Branch MULTIVIT Yes Take by Univer s &MINERALS/F 1-24 mouth. ity of ERROUS FUM 17:49: [place] (MULTI 09 Medical VITAMIN Branch ORAL) METHYLCELLU Yes Univer s LOSE (FIBER 1-24 ity of THERAPY 17:49: [facility]) Medical Branch DOCUSATE Yes Take by Univer s SODIUM 1-24 mouth. ity of (COLACE 17:49: [place] ORAL) Medical Branch vitamin C Yes 1000mg Take 1,000 Univers with derrell 1-24 mg by ity of hips 1,000 17:49: mouth [place] mg tablet 09 daily. Medical Branch CRANBERRY Yes Take by Unive rs FRUIT 1-24 mouth ity of EXTRACT 17:49: daily. [place] (CRANBERRY 09 Medical ORAL) Branch MULTIVIT Yes Take by Univer s &MINERALS/F 1-24 mouth. ity of ERROUS FUM 17:49: [place] (MULTI 09 Medical VITAMIN Branch ORAL) METHYLCELLU Yes Univer s LOSE (FIBER 1-24 ity of THERAPY 17:49: [facility]) Medical Branch DOCUSATE Yes Take by Univer s SODIUM 1-24 mouth. ity of (COLACE 17:49: [place] ORAL) Medical Branch vitamin C Yes 1000mg Take 1,000 Univers with derrell 1-24 mg by ity of hips 1,000 17:49: mouth [place] mg tablet 09 daily. Medical Branch CRANBERRY Yes Take by Unive rs FRUIT 1-24 mouth ity of EXTRACT 17:49: daily. [place] (CRANBERRY 09 Medical ORAL) Branch MULTIVIT Yes Take by Univer s &MINERALS/F 1-24 mouth. ity of ERROUS FUM 17:49: [place] (MULTI 09 Medical VITAMIN Branch ORAL) METHYLCELLU Yes Univer s LOSE (FIBER 1-24 ity of THERAPY 17:49: [facility]) Medical Branch DOCUSATE Yes Take by Univer s SODIUM 1-24 mouth. ity of (COLACE 17:49: [place] ORAL) Medical Branch vitamin C Yes 1000mg Take 1,000 Univers with derrell 1-24 mg by ity of hips 1,000 17:49: mouth [place] mg tablet 09 daily. Medical Branch CRANBERRY Yes Take by Unive rs FRUIT 1-24 mouth ity of EXTRACT 17:49: daily. [place] (CRANBERRY 09 Medical ORAL) Branch MULTIVIT Yes Take by Univer s &MINERALS/F 1-24 mouth. ity of ERROUS FUM 17:49: [place] (MULTI 09 Medical VITAMIN Branch ORAL) METHYLCELLU Yes Univer s LOSE (FIBER 1-24 ity of THERAPY 17:49: [place] [facility]) Medical Branch DOCUSATE Yes Take by Univer s SODIUM 1-24 mouth. ity of (COLACE 17:49: [place] ORAL) Medical Branch vitamin C Yes 1000mg Take 1,000 Univers with derrell 1-24 mg by ity of hips 1,000 17:49: mouth [place] mg tablet 09 daily. Medical Branch CRANBERRY Yes Take by Unive rs FRUIT 1-24 mouth ity of EXTRACT 17:49: daily. [place] (CRANBERRY 09 Medical ORAL) [place] MULTIVIT Yes Take by Univer s &MINERALS/F 1-24 mouth. ity of ERROUS FUM 17:49: [place] ([place] [address] Medical VITAMIN Branch ORAL) METHYLCELLU Yes Univer s LOSE (FIBER 1-24 ity of THERAPY 17:49: [facility]) [address] [place] [address] Branch DOCUSATE Yes Take by Univer s SODIUM 1-24 mouth. ity of (COLACE 17:49: [place] ORAL) Medical Branch vitamin C Yes 1000mg Take 1,000 Univers with derrell 1-24 mg by ity of hips 1,000 17:49: mouth [place] mg tablet 09 daily. Medical Branch CRANBERRY Yes Take by Unive rs FRUIT 1-24 mouth ity of EXTRACT 17:49: daily. [place] (CRANBERRY 09 Medical ORAL) Branch MULTIVIT Yes Take by Univer s &MINERALS/F 1-24 mouth. ity of ERROUS FUM 17:49: [place] ([facility] 09 Medical VITAMIN Branch ORAL) METHYLCELLU Yes Univer s LOSE (FIBER 1-24 ity of THERAPY 17:49: [facility]) 09 Medical Branch DOCUSATE Yes Take by Univer s SODIUM 1-24 mouth. ity of (COLACE 17:49: [place] ORAL) 09 Medical Branch vitamin C Yes 1000mg Take 1,000 Univers with derrell 1-24 mg by ity of hips 1,000 17:49: mouth [place] mg tablet 09 daily. Medical Branch CRANBERRY Yes Take by Unive rs FRUIT 1-24 mouth ity of EXTRACT 17:49: daily. [place] (CRANBERRY 09 Medical ORAL) Branch MULTIVIT Yes Take by Univer s &MINERALS/F 1-24 mouth. ity of ERROUS FUM 17:49: [place] (MULTI 09 Medical VITAMIN Branch ORAL) METHYLCELLU Yes Univer s LOSE (FIBER 1-24 ity of THERAPY 17:49: [place] [facility]) 09 Medical Branch DOCUSATE Yes Take by Univer s SODIUM 1-24 mouth. ity of (COLACE 17:49: [place] ORAL) 09 Medical Branch vitamin C Yes 1000mg Take 1,000 Univers with derrell 1-24 mg by ity of hips 1,000 17:49: mouth [place] mg tablet 09 daily. Medical Branch CRANBERRY Yes Take by Unive rs FRUIT 1-24 mouth ity of EXTRACT 17:49: daily. [place] (CRANBERRY 09 Medical ORAL) Branch MULTIVIT Yes Take by Univer s &MINERALS/F 1-24 mouth. ity of ERROUS FUM 17:49: [place] (MULTI 09 Medical VITAMIN Branch ORAL) METHYLCELLU Yes Univer s LOSE (FIBER 1-24 ity of THERAPY 17:49: [facility]) 09 Medical Branch DOCUSATE Yes Take by Univer s SODIUM 1-24 mouth. ity of (COLACE 17:49: [place] ORAL) Medical Branch vitamin C Yes 1000mg Take 1,000 Univers with derrell 1-24 mg by ity of hips 1,000 17:49: mouth [place] mg tablet 09 daily. Medical Branch CRANBERRY Yes Take by Unive rs FRUIT 1-24 mouth ity of EXTRACT 17:49: daily. [place] (CRANBERRY 09 Medical ORAL) Branch MULTIVIT Yes Take by Univer s &MINERALS/F 1-24 mouth. ity of ERROUS FUM 17:49: [place] (MULTI 09 Medical VITAMIN Branch ORAL) METHYLCELLU 2023-0 Yes Univer s LOSE (FIBER 1-24 ity [...] 1-24 mouth ity of EXTRACT 17:49: daily. [place] (CRANBERRY 09 Medical ORAL) Branch MULTIVIT Yes [...] 1-24 mouth ity of EXTRACT 17:49: daily. [place] (CRANBERRY 09 Medical ORAL) Branch MULTIVIT Yes [...] 1-24 mouth ity of EXTRACT 17:49: daily. [place] (CRANBERRY 09 Medical ORAL) Branch MULTIVIT Yes Take by Univer s &MINERALS/F 1-24 mouth. ity of ERROUS FUM 17:49: [place] (MULTI 09 Medical VITAMIN Branch ORAL) METHYLCELLU Yes Univer s LOSE (FIBER 1-24 ity of THERAPY 17:49: [facility]) Medical Branch DOCUSATE Yes Take by Univer s SODIUM 1-24 mouth. ity of (COLACE 17:49: [place] ORAL) [address] [place] [address] Branch vitamin C Yes 1000mg Take 1,000 Univers with derrell 1-24 mg by ity of hips 1,000 17:49: mouth [place] mg tablet 09 daily. Medical Branch CRANBERRY Yes Take by Unive rs FRUIT 1-24 mouth ity of EXTRACT 17:49: daily. [place] (CRANBERRY 09 Medical ORAL) [place] MULTIVIT Yes Take by Univer s &MINERALS/F 1-24 mouth. ity of ERROUS FUM 17:49: [place] ([place] [address] Medical VITAMIN Branch ORAL) METHYLCELLU Yes Univer s LOSE (FIBER 1-24 ity of THERAPY 17:49: [facility]) [address] [place] [address] Branch DOCUSATE Yes Take by Univer s SODIUM 1-24 mouth. ity of (COLACE 17:49: [place] ORAL) [address] [place] [address] Branch vitamin C Yes 1000mg Take 1,000 Univers with derrell 1-24 mg by ity of hips 1,000 17:49: mouth [place] mg tablet 09 daily. [facility] Branch CRANBERRY Yes Take by Unive rs FRUIT 1-24 mouth ity of EXTRACT 17:49: daily. [place] (CRANBERRY 09 Medical ORAL) [place] MULTIVIT Yes Take by Univer s &MINERALS/F 1-24 mouth. ity of ERROUS FUM 17:49: [place] (MULTI 09 Medical VITAMIN Branch ORAL) METHYLCELLU Yes Univer s LOSE (FIBER 1-24 ity of THERAPY 17:49: [facility]) [address] [place] [address] Branch DOCUSATE Yes Take by Univer s SODIUM 1-24 mouth. ity of (COLACE 17:49: [place] ORAL) [address] [place] [address] Branch vitamin C Yes 1000mg Take 1,000 Univers with derrell 1-24 mg by ity of hips 1,000 17:49: mouth [place] mg tablet 09 daily. Medical Branch CRANBERRY Yes Take by Univ ers FRUIT 1-24 mouth ity of EXTRACT 17:49: daily. [place] (CRANBERRY 09 Medical ORAL) [place] MULTIVIT Yes Take by Univer s &MINERALS/F 1-24 mouth. ity of ERROUS FUM 17:49: [place] (MULTI 09 Medical VITAMIN Branch ORAL) METHYLCELLU Yes Univer s LOSE (FIBER 1-24 ity of THERAPY 17:49: [place] MISC) [address] [place] [address] Branch DOCUSATE Yes Take by Univer s SODIUM 1-24 mouth. ity of (COLACE 17:49: [place] ORAL) [address] [place] [address] Branch vitamin C Yes 1000mg Take 1,000 Univers with derrell 1-24 mg by ity of hips 1,000 17:49: mouth [place] mg tablet 09 daily. Medical Branch CRANBERRY Yes Take by Unive rs FRUIT 1-24 mouth ity of EXTRACT 17:49: daily. [place] (CRANBERRY 09 Medical ORAL) [place] MULTIVIT Yes Take by Univer s &MINERALS/F 1-24 mouth. ity of ERROUS FUM 17:49: [place] ([facility] 09 Medical VITAMIN Branch ORAL) METHYLCELLU Yes Univer s LOSE (FIBER 1-24 ity of THERAPY 17:49: [place] [facility]) [address] [place] [address] Branch DOCUSATE Yes Take by Univer s SODIUM 1-24 mouth. ity of (COLACE 17:49: [place] ORAL) [address] [place] [address] Branch vitamin C Yes 1000mg Take 1,000 Univers with derrell 1-24 mg by ity of hips 1,000 17:49: mouth [place] mg tablet 09 daily. Medical Branch CRANBERRY Yes Take by Unive rs FRUIT 1-24 mouth ity of EXTRACT 17:49: daily. [place] (CRANBERRY 09 Medical ORAL) Branch MULTIVIT Yes Take by Univer s &MINERALS/F 1-24 mouth. ity of ERROUS FUM 17:49: [place] ([facility] 09 Medical VITAMIN Branch ORAL) METHYLCELLU Yes Univer s LOSE (FIBER 1-24 ity of THERAPY 17:49: [facility]) 09 Medical Branch DOCUSATE Yes Take by Univer s SODIUM 1-24 mouth. ity of (COLACE 17:49: [place] ORAL) 09 Medical Branch vitamin C Yes 1000mg Take 1,000 Univers with derrell 1-24 mg by ity of hips 1,000 17:49: mouth [place] mg tablet 09 daily. Medical Branch CRANBERRY Yes Take by Unive rs FRUIT 1-24 mouth ity of EXTRACT 17:49: daily. [place] (CRANBERRY 09 Medical ORAL) Branch MULTIVIT Yes [...] 1-24 mouth ity of EXTRACT 17:49: daily. [place] (CRANBERRY 09 Medical ORAL) Branch MULTIVIT Yes Take by Univer s &MINERALS/F 1-24 mouth. ity of ERROUS FUM 17:49: [place] (MULTI 09 Medical VITAMIN Branch ORAL) METHYLCELLU [...] 1-24 mouth ity of EXTRACT 17:49: daily. [place] (CRANBERRY 09 Medical ORAL) Branch MULTIVIT Yes Take by Univer s &MINERALS/F 1-24 mouth. ity of ERROUS FUM 17:49: [place] (MULTI 09 Medical VITAMIN Branch ORAL) METHYLCELLU Yes Univer s LOSE (FIBER 1-24 ity of THERAPY 17:49: [facility]) Medical Branch DOCUSATE Yes Take by Univer s SODIUM 1-24 mouth. ity of (COLACE 17:49: [place] ORAL) Medical Branch vitamin C Yes 1000mg Take 1,000 Univers with derrell 1-24 mg by ity of hips 1,000 17:49: mouth [place] mg tablet 09 daily. Medical Branch CRANBERRY Yes Take by Unive rs FRUIT 1-24 mouth ity of EXTRACT 17:49: daily. [place] (CRANBERRY 09 Medical ORAL) Branch MULTIVIT Yes Take by Univer s &MINERALS/F 1-24 mouth. ity of ERROUS FUM 17:49: [place] ([facility] 09 Medical VITAMIN Branch ORAL) METHYLCELLU Yes Univer s LOSE (FIBER 1-24 ity of THERAPY 17:49: [facility]) Medical Branch DOCUSATE Yes Take by Univer s SODIUM 1-24 mouth. ity of (COLACE 17:49: [place] ORAL) Medical Branch vitamin C Yes 1000mg Take 1,000 Univers with derrell 1-24 mg by ity of hips 1,000 17:49: mouth [place] mg tablet 09 daily. Medical Branch CRANBERRY Yes Take by Unive rs FRUIT 1-24 mouth ity of EXTRACT 17:49: daily. [place] (CRANBERRY 09 Medical ORAL) Branch MULTIVIT Yes Take by Univer s &MINERALS/F 1-24 mouth. ity of ERROUS FUM 17:49: [place] (MULTI 09 Medical VITAMIN Branch ORAL) METHYLCELLU Yes Univer s LOSE (FIBER 1-24 ity of THERAPY 17:49: [facility]) [address] [place] [address] Branch DOCUSATE Yes Take by Univer s SODIUM 1-24 mouth. ity of (COLACE 17:49: [place] ORAL) Medical Branch vitamin C Yes 1000mg Take 1,000 Univers with derrell 1-24 mg by ity of hips 1,000 17:49: mouth [place] mg tablet 09 daily. Medical Branch CRANBERRY Yes Take by Unive rs FRUIT -24 mouth ity of EXTRACT 17:49: daily. [place] (CRANBERRY Medical ORAL) Branch MULTIVIT Yes Take by Univer s &MINERALS/F -24 mouth. ity of ERROUS FUM 17:49: [place] (MULTI 09 Medical VITAMIN Branch ORAL) METHYLCELLU Yes Univer s LOSE (FIBER -24 ity of THERAPY 17:49: [place] MISC) Medical Branch DOCUSATE Yes Take by Univer s SODIUM -24 mouth. ity of (COLACE 17:49: [place] ORAL) 09 Medical Branch vitamin C Yes 1000mg Take 1,000 Univers with derrell 1-24 mg by ity of hips 1,000 17:49: mouth [place] mg tablet 09 daily. Medical Branch CRANBERRY Yes Take by Unive rs FRUIT -24 mouth ity of EXTRACT 17:49: daily. [place] (CRANBERRY Medical ORAL) [place] polyethylen Yes 17g 17 g, Unive rs e glycol -24 Oral, BID, ity o f 3350 powder 16:45: First dose [place] 17 g 00 on [facility] 10/19/22 at Branch 1045, Until Discontinu ed, Routine pantoprazol Yes 40mg 40 mg, Univ ers e 1-24 Oral, BID, ity of (PROTONIX) 16:15: First dose [place] 2 mg/mL 00 on [facility] oral 10/19/22 at Branch suspension 1015, 40 mg Until Discontinu ed, Routine montelukast Yes 10mg 10 mg, Univ ers (SINGULAIR) 24 Oral, ity of tablet 10 15:00: DAILY, [place] mg 00 First dose Medical on [facility] 10/19/22 at 0900, Until Discontinu ed, Routine citalopram Yes 40mg 40 mg, Unive rs (CELEXA) -24 Oral, ity of tablet 40 15:00: DAILY, [place] mg 00 First dose Medical on [facility] 10/19/22 at 0900, Until Discontinu ed, Routine losartan Yes 50mg 50 mg, Univers (COZAAR) 1-24 Oral, BID, ity o f tablet 50 14:00: First dose [place] mg 00 on [facility] 10/19/22 at Branch 0800, Until Discontinu ed, Routine fluticasone 3-0 Yes 2{puff} 2 Puff, Univers propionate 10-19 Inhalation ity of (FLOVENT) 14:00: , Q12H, [place] 110 00 First dose Medical mcg/actuati on [facility] on inhaler 10/19/22 at 2 Puff 0800, Until Discontinu ed, Routine
Is this order for a patient with suspected or confirmed COVID-19 infection? No
Does this order have Pulmonary/ Critical Care approval? No busPIRone 3-0 Yes 20mg 20 mg, Univer s (BUSPAR) 10-19 Oral, BID, ity o f tablet 20 14:00: First dose [place] mg 00 on [facility] 10/19/22 at Branch 0800, Until Discontinu ed, Routine FOLIC ACID 2022-0 2022- No Take by Uni vers ORAL 10-19 mouth ity of 13:15: 00:00 daily. [place] 59 :00 Medical Branch cholecalcif 2022-0 2022- No 1000U Take 1,000 Univers edmar, 10-19 Units by ity of vitamin D3, 13:15: 00:00 mouth [place] 25 mcg 59 :00 daily. Medical (1,000 Branch unit) tablet CALCIUM 2022-0 2022- No Take by Univer s ORAL 10-19 mouth ity of 13:15: 00:00 daily. [place] 59 :00 Medical Branch DOCOSAHEXAN 2022-0 2022- No 1000mg Take 1,000 Univers OIC 10-19 mg by ity of ACID/EPA 13:15: 00:00 mouth [place] (FISH OIL 59 :00 daily. Medical ORAL) Branch BIOTIN ORAL 2022-0 2022- No Take by Un jerrod 10-19 mouth. ity of 13:15: 00:00 [place] 59 :00 Medical Branch FOLIC ACID 2022-0 2022- No Take by Uni vers ORAL 10-19 mouth ity of 13:15: 00:00 daily. [place] 59 :00 Medical Branch cholecalcif 2022-0 2023- No 1000U Take 1,000 Univers edmar, 10-19 Units by ity of vitamin D3, 13:15: 00:00 [place] 25 mcg 59 :00 daily. Medical (1,000 Branch unit) tablet CALCIUM 2022-0 2022- No Take by [facility] s ORAL 10-19 mouth ity of 13:15: [...] 10-19 mouth ity of 13:15: 00:00 daily. [place] 59 :00 Medical Branch cholecalcif 2022-0 2022- No 1000U Take 1,000 Univers edmar, 10-19 Units by ity of vitamin D3, 13:15: 00:00 mouth [place] 25 mcg 59 :00 daily. Medical (1,000 Branch unit) tablet CALCIUM 2022-0 2022- No Take by [facility] ORAL 10-19 mouth ity of 13:15: 00:00 daily. [place] 59 :00 Medical Branch DOCOSAHEXAN 2022-0 2022- No 1000mg Take 1,000 Univers OIC 10-19 mg by ity of ACID/EPA 13:15: 00:00 mouth [place] (FISH OIL 59 :00 daily. Medical ORAL) Branch BIOTIN ORAL 2022-0 2022- No Take by Un jerrod 10-19 mouth. ity of 13:15: 00:00 [place] 59 :00 Medical Branch levothyroxi 2022-0 Yes 50ug 50 mcg, Uni vers ne 10-19 Oral, ity of (SYNTHROID) 12:00: QAM-0600, [place] tablet 50 00 First dose Medi cipriano mcg on Tue Branch 10/19/22 at 0600, Until Discontinu ed, Routine NaCl 0.9% 0 2022- No 500mL at 999 Univ ers (NS) bolus 10-19 mL/hr, 500 it y of infusion 10:14: 12:01 mL, IV [place] 500 mL 00 :20 Piggyback, Medical ONCE, 1 Branch dose, On 10/19/22 at 0415, SABRINA traMADoL 2022- No 50mg 50 mg, Univer s (ULTRAM) 10-19 Oral, ONCE ity of tablet 50 09:45: 10:14 NOW, 1 [place] mg 00 :00 dose, On [facility] 10/19/22 at 0345, Routine diltiazem Yes 120mg 120 mg, Univ ers XR 10-19 Oral, BID, ity of (DILT-XR) 05:15: First dose [place] capsule 120 00 (after Medica l mg last Branch modificati on) on Tue10/18/22 at 2315, Until Discontinu ed traMADoL 2022- No 50mg 50 mg, Univer s (ULTRAM) 10-19 Oral, ONCE ity of tablet 50 05:15: 04:44 NOW, 1 [place] mg 00 :00 dose, On Medical [facility] 10/18/22 at 2315, Routine acetaminoph Yes 650mg 650 mg, Un jerrod en 10-19 Oral, Q6H ity of (TYLENOL) 05:00: ABX, First [place] tablet 650 00 dose on Medica l mg [facility] 10/18/22 at 2300, Until Discontinu ed, [...] mL 00 :06 First dose Medical on [facility] 10/18/22 at 2215, Until Discontinu ed, Routine sucralfate 2023-0 Yes 1g 1 g, Oral, U nivers (CARAFATE) 10-19 AC+HS, ity of tablet 1 g 03:45: First dose [place] 00 on [facility] 10/18/22 at Branch 214, Until Discontinu ed, Routine famotidine 0 Yes 20mg 20 mg, Unive rs (PEPCID AC) 10-19 Oral, BID, it y of tablet 20 03:45: First dose [place] mg 00 on [facility] 10/18/22 at Branch 214, Until Discontinu ed, Routine simethicone 0 Yes 80mg 80 mg, Univ ers (GAS RELIEF 10-19 Oral, ity of (SIMETHICON 03:45: PC+HS, [place] E)) 00 First dose Medical chewable on [facility] tablet 80 10/18/22 at mg 5, Until Discontinu ed, Routine sennosides- 2022-0 Yes 1{tbl} 1 tablet, [facility] docusate 10-19 Oral, ity of sodium 03:45: DAILY, [place] (SENOKOT-S) 00 First dose Me dical 8.6-50 mg on [facility] per tablet 10/18/22 at 1 tablet 2144, Until Discontinu ed, Routine psyllium 2022-0 2022- No 1{packe 1 Packet, Univers husk 10-19 t} Oral, ity of (METAMUCIL 03:45: 16:39 DAILY, [place] (SUGAR 00 :06 First dose Medical FREE)) 3.4 on [facility] gram oral 10/18/22 at powder 2144, packet 1 Until Packet Discontinu ed, Routine dicyclomine 2022-0 2022- No 20mg 20 mg, Uni vers (BENTYL) 10-19 Oral, QID, ity of tablet 20 03:45: 16:38 First dose [place] mg 00 :09 on [facility] 10/18/22 at Branch 214, Until Discontinu ed, Routine ondansetron 2022-0 Yes 4mg 4 mg, Unive rs (ZOFRAN-ODT 10-19 Oral, Q8H ity of ) 03:33: ABX, First [place] disintegrat 00 dose on Medic al ing tablet [facility] 4 mg 10/18/22 at 2145, Until [...] Wheezing, Shortness of Breath polyethylen 2022-0 Yes [id number] 17g Take 1 Univers e glycol 1-24 Packet by ity of 3350 17 00:00: mouth in [place] gram powder 00 the Medical morning Branch and 1 Packet in the evening. lactulose 2022-0 Yes [id number] 30mL Take 30 mL Univers 10 gram/15 1-24 by mouth ity o f mL solution 00:00: [place] 00 morning Medical and 30 mL Branch in the evening. ondansetron 2022-0 Yes [id number] 4mg Take 1 Univers 4 mg 1-24 tablet by ity of disintegrat 00:00: mouth [place] ing tablet 00 every 8 Medica l (eight) Branch hours as needed for Nausea and Vomiting (N/V). sucralfate 2022-0 Yes [id number] 1g Take 1 Univers 1 gram 1-24 tablet by ity of tablet 00:00: mouth [place] 00 before Medical meals and Branch at bedtime. pantoprazol 2022-0 Yes [id number] 40mg Take 1 Univers e 40 mg EC 1-24 tablet by ity of tablet 00:00: mouth in [place] 00 the Medical morning Branch and 1 tablet in the evening. SUMAtriptan 2022-0 Yes [id number] 50mg Take 1 Univers 50 mg 1-24 tablet by ity of tablet 00:00: mouth as [place] 00 needed for Medical Migraine. Branch May repeat dose after >=2 hours, max dose 200mg in 24 hours. polyethylen 2023-0 Yes [id number] 17g Take 1 Univers e glycol 1-24 Packet by ity of 3350 17 00:00: mouth in [place] gram powder 00 the Medical morning Branch and 1 Packet in the evening. lactulose 2023-0 Yes [id number] 30mL Take 30 mL Univers 10 gram/15 1-24 by mouth ity o f mL solution 00:00: in the morning Medical and 30 mL Branch in the evening. ondansetron 2023-0 Yes [id number] 4mg Take 1 Univers 4 mg 1-24 tablet by ity of disintegrat 00:00: mouth [place] ing tablet 00 every 8 Medica l (eight) Branch hours as needed for Nausea and Vomiting (N/V). sucralfate 2023-0 Yes [id number] 1g Take 1 Univers 1 gram 1-24 tablet by ity of tablet 00:00: mouth [place] 00 before Medical meals and Branch at bedtime. pantoprazol 2023-0 Yes [id number] 40mg Take 1 Univers e 40 mg EC 1-24 tablet by ity of tablet 00:00: mouth in [place] 00 the Medical morning Branch and 1 tablet in the evening. SUMAtriptan 3-0 Yes [id number] 50mg Take 1 Univers 50 mg 1-24 tablet by ity of tablet 00:00: mouth as [place] [address] needed for Medical Migraine. Branch May repeat dose after >=2 hours, max dose 200mg in 24 hours. polyethylen 3-0 Yes [id number] 17g Take 1 Univers e glycol 1-24 Packet by ity of 3350 17 00:00: mouth in [place] gram powder 00 the Medical morning Branch and 1 Packet in the evening. lactulose 2023-0 Yes [id number] 30mL Take 30 mL Univers 10 gram/15 1-24 by mouth ity o f mL solution 00:00: in the [facility] morning Medical and 30 mL Branch in the evening. ondansetron 2023-0 Yes [id number] 4mg Take 1 Univers 4 mg 1-24 tablet by ity of disintegrat 00:00: mouth [place] ing tablet 00 every 8 Medica l (eight) Branch hours as needed for Nausea and Vomiting (N/V). sucralfate 2023-0 Yes [id number] 1g Take 1 Univers 1 gram 1-24 tablet by ity of tablet 00:00: mouth [place] 00 before Medical meals and Branch at bedtime. pantoprazol 2023-0 Yes [id number] 40mg Take 1 Univers e 40 mg EC 1-24 tablet by ity of tablet 00:00: mouth in [place] 00 the Medical morning Branch and 1 tablet in the evening. SUMAtriptan 2023-0 Yes [id number] 50mg Take 1 Univers 50 mg 1-24 tablet by ity of tablet 00:00: mouth as [place] 00 needed for Medical Migraine. Branch May repeat dose after >=2 hours, max dose 200mg in 24 hours. polyethylen 2023-0 Yes [id number] 17g Take 1 Univers e glycol 1-24 Packet by ity of 3350 17 00:00: mouth in [place] gram powder 00 the Medical morning Branch and 1 Packet in the evening. lactulose 2023-0 Yes [id number] 30mL Take 30 mL Univers 10 gram/15 1-24 by mouth ity o f mL solution 00:00: in the [facility] morning Medical and 30 mL Branch in the evening. ondansetron 3-0 Yes [id number] 4mg Take 1 Univers 4 mg 1-24 tablet by ity of disintegrat 00:00: mouth [place] ing tablet 00 every 8 Medica l (eight) Branch hours as needed for Nausea and Vomiting (N/V). sucralfate 2023-0 Yes [id number] 1g Take 1 Univers 1 gram 1-24 tablet by ity of tablet 00:00: mouth [place] 00 before Medical meals and Branch at bedtime. pantoprazol 2023-0 Yes [id number] 40mg Take 1 Univers e 40 mg EC 1-24 tablet by ity of tablet 00:00: mouth in [place] 00 the Medical morning Branch and 1 tablet in the evening. SUMAtriptan 2023-0 Yes [id number] 50mg Take 1 Univers 50 mg 1-24 tablet by ity of tablet 00:00: mouth as [place] 00 needed for Medical Migraine. Branch May repeat dose after >=2 hours, max dose 200mg in 24 hours. polyethylen 2023-0 Yes [id number] 17g Take 1 Univers e glycol 1-24 Packet by ity of 3350 17 00:00: mouth in [place] gram powder 00 the Medical morning Branch and 1 Packet in the evening. lactulose 2023-0 Yes [id number] 30mL Take 30 mL Univers 10 gram/15 1-24 by mouth ity o f mL solution 00:00: in [place] morning Medical and 30 mL Branch in the evening. ondansetron 2023-0 Yes [id number] 4mg Take 1 Univers 4 mg 1-24 tablet by ity of disintegrat 00:00: mouth [place] ing tablet 00 every 8 Medica l (eight) Branch hours as needed for Nausea and Vomiting (N/V). sucralfate 2023-0 Yes [id number] 1g Take 1 Univers 1 gram 1-24 tablet by ity of tablet 00:00: mouth [place] 00 before Medical meals and Branch at bedtime. pantoprazol 2023-0 Yes [id number] 40mg Take 1 Univers e 40 mg EC 1-24 tablet by ity of tablet 00:00: mouth in [place] 00 the Medical morning Branch and 1 tablet in the evening. SUMAtriptan 2023-0 Yes [id number] 50mg Take 1 Univers 50 mg 1-24 tablet by ity of tablet 00:00: mouth as [place] 00 needed for Medical Migraine. Branch May repeat dose after >=2 hours, max dose 200mg in 24 hours. polyethylen 2023-0 Yes [id number] 17g Take 1 Univers e glycol 1-24 Packet by ity of 3350 17 00:00: mouth in [place] gram powder 00 the Medical morning Branch and 1 Packet in the evening. lactulose 2023-0 Yes [id number] 30mL Take 30 mL Univers 10 gram/15 1-24 by mouth ity o f mL solution 00:00: in the [facility] s 00 morning Medical and 30 mL Branch in the evening. ondansetron 2023-0 Yes [id number] 4mg Take 1 Univers 4 mg 1-24 tablet by ity of disintegrat 00:00: mouth [place] ing tablet 00 every 8 Medica l (eight) Branch hours as needed for Nausea and Vomiting (N/V). sucralfate 2023-0 Yes [id number] 1g Take 1 Univers 1 gram 1-24 tablet by ity of tablet 00:00: mouth [place] 00 before Medical meals and Branch at bedtime. pantoprazol 2023-0 Yes [id number] 40mg Take 1 Univers e 40 mg EC 1-24 tablet by ity of tablet 00:00: mouth in [place] 00 the Medical morning Branch and 1 tablet in the evening. SUMAtriptan 2023-0 Yes [id number] 50mg Take 1 Univers 50 mg 1-24 tablet by ity of tablet 00:00: mouth as 00 needed for Medical Migraine. Branch May repeat dose after >=2 hours, max dose 200mg in 24 hours. polyethylen 2023-0 Yes [id number] 17g Take 1 Univers e glycol 1-24 Packet by ity of 3350 17 00:00: mouth in [place] gram powder 00 the Medical morning Branch and 1 Packet in the evening. lactulose 2023-0 Yes [id number] 30mL Take 30 mL [facility] 10 gram/15 1-24 by mouth ity o f mL solution 00:00: in the morning Medical and 30 mL Branch in the evening. ondansetron 2023-0 Yes [id number] 4mg Take 1 [facility] 4 mg 1-24 tablet by ity of disintegrat 00:00: mouth [place] ing tablet 00 every 8 Medica l (eight) Branch hours as needed for Nausea and Vomiting (N/V). sucralfate 2023-0 Yes [id number] 1g Take 1 [facility] 1 gram 1-24 tablet by ity of tablet 00:00: mouth 00 before Medical meals and Branch at bedtime. pantoprazol 2023-0 Yes [id number] 40mg Take 1 [facility] e 40 mg EC 1-24 tablet by ity of tablet 00:00: mouth in [place] 00 the Medical morning Branch and 1 tablet in the evening. SUMAtriptan 2023-0 Yes [id number] 50mg Take 1 [facility] 50 mg 1-24 tablet by ity of tablet 00:00: mouth as 00 needed for Medical Migraine. Branch May repeat dose after >=2 hours, max dose 200mg in 24 hours. polyethylen 2023-0 Yes [id number] 17g Take 1 [facility] e glycol 1-24 Packet by ity of 3350 17 00:00: mouth in [place] gram powder 00 the Medical morning Branch and 1 Packet in the evening. lactulose 2023-0 Yes [id number] 30mL Take 30 mL [facility] 10 gram/15 1-24 by mouth ity o f mL solution 00:00: in the morning Medical and 30 mL Branch in the evening. ondansetron 2023-0 Yes [id number] 4mg Take 1 [facility] 4 mg 1-24 tablet by ity of disintegrat 00:00: mouth [place] ing tablet 00 every 8 Medica l (eight) Branch hours as needed for Nausea and Vomiting (N/V). sucralfate 2023-0 Yes [id number] 1g Take 1 [facility] 1 gram 1-24 tablet by ity of tablet 00:00: mouth [place] 00 before Medical meals and Branch at bedtime. pantoprazol 2023-0 Yes [id number] 40mg Take 1 [facility] e 40 mg EC 1-24 tablet by ity of tablet 00:00: mouth in [place] 00 the Medical morning Branch and 1 tablet in the evening. SUMAtriptan 2023-0 Yes [id number] 50mg Take 1 [facility] 50 mg 1-24 tablet by ity of tablet 00:00: mouth as [place] 00 needed for Medical Migraine. Branch May repeat dose after >=2 hours, max dose 200mg in 24 hours. polyethylen 2023-0 Yes [id number] 17g Take 1 [facility] e glycol 1-24 Packet by ity of 3350 17 00:00: mouth in [place] gram powder 00 the Medical morning Branch and 1 Packet in the evening. lactulose 3-0 Yes [id number] 30mL Take 30 mL [facility] 10 gram/15 1-24 by mouth it[facility] o f mL solution 00:00: [place] morning Medical and 30 mL Branch in the evening. ondansetron 3-0 Yes [id number] 4mg Take 1 [facility] 4 mg 1-24 tablet by ity of disintegrat 00:00: mouth [place] ing tablet 00 every 8 Medica l (eight) Branch hours as needed for Nausea and Vomiting (N/V). sucralfate 3-0 Yes [id number] 1g Take 1 [facility] 1 gram 1-24 tablet by ity of tablet 00:00: mouth [place] 00 before Medical meals and Branch at bedtime. pantoprazol 2023-0 Yes [id number] 40mg Take 1 [facility] e 40 mg EC 1-24 tablet by ity of tablet 00:00: mouth in [place] 00 the Medical morning Branch and 1 tablet in the evening. SUMAtriptan 2023-0 Yes [id number] 50mg Take 1 [facility] 50 mg 1-24 tablet by ity of tablet 00:00: mouth as [place] 00 needed for Medical Migraine. Branch May repeat dose after >=2 hours, max dose 200mg in 24 hours. polyethylen 2023-0 Yes [id number] 17g Take 1 [facility] e glycol 1-24 Packet by ity of 3350 17 00:00: mouth in [place] gram powder 00 the Medical morning Branch and 1 Packet in the evening. lactulose 2023-0 Yes [id number] 30mL Take 30 mL [facility] 10 gram/15 1-24 by mouth ity o f mL solution 00:00: in the morning Medical and 30 mL Branch in the evening. ondansetron 2023-0 Yes [id number] 4mg Take 1 [facility] 4 mg 1-24 tablet by ity of disintegrat 00:00: mouth [place] ing tablet 00 every 8 Medica l (eight) Branch hours as needed for Nausea and Vomiting (N/V). sucralfate 2023-0 Yes [id number] 1g Take 1 [facility] 1 gram 1-24 tablet by ity of tablet 00:00: mouth 00 before Medical meals and Branch at bedtime. pantoprazol 3-0 Yes [id number] 40mg Take 1 [facility] e 40 mg EC 1-24 tablet by ity of tablet 00:00: mouth in [place] 00 the Medical morning Branch and 1 tablet in the evening. SUMAtriptan 3-0 Yes [id number] 50mg Take 1 [facility] 50 mg 1-24 tablet by ity of tablet 00:00: mouth as 00 needed for Medical Migraine. Branch May repeat dose after >=2 hours, max dose 200mg in 24 hours. polyethylen 3-0 Yes [id number] 17g Take 1 [facility] e glycol 1-24 Packet by ity of 3350 17 00:00: mouth in [place] gram powder 00 the Medical morning Branch and 1 Packet in the evening. lactulose 2023-0 Yes [id number] 30mL Take 30 mL [facility] 10 gram/15 1-24 by mouth ity o f mL solution 00:00: in the morning Medical and 30 mL Branch in the evening. ondansetron 2023-0 Yes [id number] 4mg Take 1 [facility] 4 mg 1-24 tablet by ity of disintegrat 00:00: mouth [place] ing tablet 00 every 8 Medica l (eight) Branch hours as needed for Nausea and Vomiting (N/V). sucralfate 2023-0 Yes [id number] 1g Take 1 [facility] 1 gram 1-24 tablet by ity of tablet 00:00: mouth [place] 00 before Medical meals and Branch at bedtime. pantoprazol 2023-0 Yes [id number] 40mg Take 1 [facility] e 40 mg EC 1-24 tablet by ity of tablet 00:00: mouth in [place] 00 the Medical morning Branch and 1 tablet in the evening. SUMAtriptan 2023-0 Yes [id number] 50mg Take 1 [facility] 50 mg 1-24 tablet by ity of tablet 00:00: mouth as [place] 00 needed for Medical Migraine. Branch May repeat dose after >=2 hours, max dose 200mg in 24 hours. polyethylen 2023-0 Yes [id number] 17g Take 1 [facility] e glycol 1-24 Packet by ity of 3350 17 00:00: mouth in [place] gram powder 00 the Medical morning Branch and 1 Packet in the evening. lactulose 2023-0 Yes [id number] 30mL Take 30 mL [facility] 10 gram/15 1-24 by mouth ity o f mL solution 00:00: in the [facility] morning Medical and 30 mL Branch in the evening. ondansetron 3-0 Yes [id number] 4mg Take 1 [facility] 4 mg 1-24 tablet by ity of disintegrat 00:00: mouth [place] ing tablet 00 every 8 Medica l (eight) Branch hours as needed for Nausea and Vomiting (N/V). sucralfate 3-0 Yes [id number] 1g Take 1 [facility] 1 gram 1-24 tablet by ity of tablet 00:00: mouth [place] 00 before Medical meals and Branch at bedtime. pantoprazol 3-0 Yes [id number] 40mg Take 1 [facility] e 40 mg EC 1-24 tablet by ity of tablet 00:00: mouth in [place] 00 the Medical morning Branch and 1 tablet in the evening. SUMAtriptan 3-0 Yes [id number] 50mg Take 1 [facility] 50 mg 1-24 tablet by ity of tablet 00:00: mouth as [place] 00 needed for Medical Migraine. Branch May repeat dose after >=2 hours, max dose 200mg in 24 hours. polyethylen 2023-0 Yes [id number] 17g Take 1 [facility] e glycol 1-24 Packet by ity of 3350 17 00:00: mouth in [place] gram powder 00 the Medical morning Branch and 1 Packet in the evening. lactulose 2023-0 Yes [id number] 30mL Take 30 mL [facility] 10 gram/15 1-24 by mouth ity o f mL solution 00:00: in the [facility] morning Medical and 30 mL Branch in the evening. ondansetron 2023-0 Yes [id number] 4mg Take 1 [facility] 4 mg 1-24 tablet by ity of disintegrat 00:00: mouth [place] ing tablet 00 every 8 Medica l (eight) Branch hours as needed for Nausea and Vomiting (N/V). sucralfate 2023-0 Yes [id number] 1g Take 1 [facility] 1 gram 1-24 tablet by ity of tablet 00:00: mouth [place] 00 before Medical meals and Branch at bedtime. pantoprazol 2023-0 Yes [id number] 40mg Take 1 [facility] e 40 mg EC 1-24 tablet by ity of tablet 00:00: mouth in 00 the Medical morning Branch and 1 tablet in the evening. SUMAtriptan 2023-0 Yes [id number] 50mg Take 1 [facility] 50 mg 1-24 tablet by ity of tablet 00:00: mouth as 00 needed for Medical Migraine. Branch May repeat dose after >=2 hours, max dose 200mg in 24 hours. polyethylen 2023-0 Yes [id number] 17g Take 1 [facility] e glycol 1-24 Packet by ity of 3350 17 00:00: mouth in [place] gram powder 00 the Medical morning Branch and 1 Packet in the evening. lactulose 2023-0 Yes [id number] 30mL Take 30 mL [facility] 10 gram/15 1-24 by mouth ity o f mL solution 00:00: [place] morning Medical and 30 mL Branch in the evening. ondansetron 2023-0 Yes [id number] 4mg Take 1 [facility] 4 mg 1-24 tablet by ity of disintegrat 00:00: mouth [place] ing tablet 00 every 8 Medica l (eight) Branch hours as needed for Nausea and Vomiting (N/V). sucralfate 2023-0 Yes [id number] 1g Take 1 [facility] 1 gram 1-24 tablet by ity of tablet 00:00: mouth [place] 00 before Medical meals and Branch at bedtime. pantoprazol 2023-0 Yes [id number] 40mg Take 1 [facility] e 40 mg EC 1-24 tablet by ity of tablet 00:00: mouth in [place] 00 the Medical morning Branch and 1 tablet in the evening. SUMAtriptan 2023-0 Yes [id number] 50mg Take 1 [facility] 50 mg 1-24 tablet by ity of tablet 00:00: mouth as 00 needed for Medical Migraine. Branch May repeat dose after >=2 hours, max dose 200mg in 24 hours. polyethylen 2023-0 Yes [id number] 17g Take 1 [facility] e glycol 1-24 Packet by ity of 3350 17 00:00: mouth in [place] gram powder 00 the Medical morning Branch and 1 Packet in the evening. lactulose 2023-0 Yes [id number] 30mL Take 30 mL [facility] 10 gram/15 1-24 by mouth ity o f mL solution 00:00: in the morning Medical and 30 mL Branch in the evening. ondansetron 2023-0 Yes [id number] 4mg Take 1 [facility] 4 mg 1-24 tablet by ity of disintegrat 00:00: mouth [place] ing tablet 00 every 8 Medica l (eight) Branch hours as needed for Nausea and Vomiting (N/V). sucralfate 2023-0 Yes [id number] 1g Take 1 [facility] 1 gram 1-24 tablet by ity of tablet 00:00: mouth 00 before Medical meals and Branch at bedtime. pantoprazol 2023-0 Yes [id number] 40mg Take 1 [facility] e 40 mg EC 1-24 tablet by ity of tablet 00:00: mouth in [place] the Medical morning Branch and 1 tablet in the evening. SUMAtriptan 2023-0 Yes [id number] 50mg Take 1 [facility] 50 mg 1-24 tablet by ity of tablet 00:00: mouth as 00 needed for Medical Migraine. Branch May repeat dose after >=2 hours, max dose 200mg in 24 hours. polyethylen 2023-0 Yes [id number] 17g Take 1 [facility] e glycol 1-24 Packet by ity of 3350 17 00:00: mouth in [place] gram powder 00 the Medical morning Branch and 1 Packet in the evening. lactulose 2023-0 Yes [id number] 30mL Take 30 mL [facility] 10 gram/15 1-24 by mouth ity o f mL solution 00:00: in the morning Medical and 30 mL Branch in the evening. ondansetron 2023-0 Yes [id number] 4mg Take 1 [facility] 4 mg 1-24 tablet by ity of disintegrat 00:00: mouth [place] ing tablet 00 every 8 Medica l (eight) Branch hours as needed for Nausea and Vomiting (N/V). sucralfate 2023-0 Yes [id number] 1g Take 1 [facility] 1 gram 1-24 tablet by ity of tablet 00:00: mouth [place] 00 before Medical meals and Branch at bedtime. pantoprazol 2023-0 Yes [id number] 40mg Take 1 [facility] e 40 mg EC 1-24 tablet by ity of tablet 00:00: mouth in [place] 00 the Medical morning Branch and 1 tablet in the evening. SUMAtriptan 2023-0 Yes [id number] 50mg Take 1 [facility] 50 mg 1-24 tablet by ity of tablet 00:00: mouth as [place] 00 needed for Medical Migraine. Branch May repeat dose after >=2 hours, max dose 200mg in 24 hours. polyethylen 2023-0 Yes [id number] 17g Take 1 [facility] e glycol 1-24 Packet by ity of 3350 17 00:00: mouth in [place] gram powder 00 the Medical morning Branch and 1 Packet in the evening. lactulose 3-0 Yes [id number] 30mL Take 30 mL [facility] 10 gram/15 1-24 by mouth ity o f mL solution 00:00: in the [facility] morning Medical and 30 mL Branch in the evening. ondansetron 3-0 Yes [id number] 4mg Take 1 [facility] 4 mg 1-24 tablet by ity of disintegrat 00:00: mouth [place] ing tablet 00 every 8 Medica l (eight) Branch hours as needed for Nausea and Vomiting (N/V). sucralfate 3-0 Yes [id number] 1g Take 1 [facility] 1 gram 1-24 tablet by ity of tablet 00:00: mouth [place] 00 before Medical meals and Branch at bedtime. pantoprazol 3-0 Yes [id number] 40mg Take 1 [facility] e 40 mg EC 1-24 tablet by ity of tablet 00:00: mouth in [place] 00 the Medical morning Branch and 1 tablet in the evening. SUMAtriptan 3-0 Yes [id number] 50mg Take 1 [facility] 50 mg 1-24 tablet by ity of tablet 00:00: mouth as [place] 00 needed for Medical Migraine. Branch May repeat dose after >=2 hours, max dose 200mg in 24 hours. polyethylen 2023-0 Yes [id number] 17g Take 1 [facility] e glycol 1-24 Packet by ity of 3350 17 00:00: mouth in [place] gram powder 00 the Medical morning Branch and 1 Packet in the evening. lactulose 2023-0 Yes [id number] 30mL Take 30 mL [facility] 10 gram/15 1-24 by mouth ity o f mL solution 00:00: in the morning Medical and 30 mL Branch in the evening. ondansetron 2023-0 Yes [id number] 4mg Take 1 [facility] 4 mg 1-24 tablet by ity of disintegrat 00:00: mouth [place] ing tablet 00 every 8 Medica l (eight) Branch hours as needed for Nausea and Vomiting (N/V). sucralfate 2023-0 Yes [id number] 1g Take 1 [facility] 1 gram 1-24 tablet by ity of tablet 00:00: mouth [place] 00 before Medical meals and Branch at bedtime. pantoprazol 2023-0 Yes [id number] 40mg Take 1 [facility] e 40 mg EC 1-24 tablet by ity of tablet 00:00: mouth in [place] 00 the Medical morning Branch and 1 tablet in the evening. SUMAtriptan 2023-0 Yes [id number] 50mg Take 1 [facility] 50 mg 1-24 tablet by ity of tablet 00:00: mouth as [place] [address] needed for Medical Migraine. Branch May repeat dose after >=2 hours, max dose 200mg in 24 hours. polyethylen 2023-0 Yes [id number] 17g Take 1 [facility] e glycol 1-24 Packet by ity of 3350 17 00:00: mouth in [place] gram powder 00 the Medical morning Branch and 1 Packet in the evening. lactulose 2023-0 Yes [id number] 30mL Take 30 mL [facility] 10 gram/15 1-24 by mouth ity o f mL solution 00:00: in the [facility] morning Medical and 30 mL Branch in the evening. ondansetron 2023-0 Yes [id number] 4mg Take 1 [facility] 4 mg 1-24 tablet by ity of disintegrat 00:00: mouth [place] ing tablet 00 every 8 Medica l (eight) Branch hours as needed for Nausea and Vomiting (N/V). sucralfate 2023-0 Yes [id number] 1g Take 1 [facility] 1 gram 1-24 tablet by ity of tablet 00:00: mouth [place] 00 before Medical meals and Branch at bedtime. pantoprazol 2023-0 Yes [id number] 40mg Take 1 [facility] e 40 mg EC 1-24 tablet by ity of tablet 00:00: mouth in [place] 00 the Medical morning Branch and 1 tablet in the evening. SUMAtriptan 2023-0 Yes [id number] 50mg Take 1 [facility] 50 mg 1-24 tablet by ity of tablet 00:00: mouth as [place] 00 needed for Medical Migraine. Branch May repeat dose after >=2 hours, max dose 200mg in 24 hours. polyethylen 2023-0 Yes [id number] 17g Take 1 [facility] e glycol 1-24 Packet by ity of 3350 17 00:00: mouth in [place] gram powder 00 the Medical morning Branch and 1 Packet in the evening. lactulose 2023-0 Yes [id number] 30mL Take 30 mL [facility] 10 gram/15 1-24 by mouth ity o f mL solution 00:00: in the [facility] morning Medical and 30 mL Branch in the evening. ondansetron 3-0 Yes [id number] 4mg Take 1 [facility] 4 mg 1-24 tablet by ity of disintegrat 00:00: mouth [place] ing tablet 00 every 8 Medica l (eight) Branch hours as needed for Nausea and Vomiting (N/V). sucralfate 3-0 Yes [id number] 1g Take 1 [facility] 1 gram 1-24 tablet by ity of tablet 00:00: mouth [place] 00 before Medical meals and Branch at bedtime. pantoprazol 3-0 Yes [id number] 40mg Take 1 [facility] e 40 mg EC 1-24 tablet by ity of tablet 00:00: mouth in [place] 00 the Medical morning Branch and 1 tablet in the evening. SUMAtriptan 3-0 Yes [id number] 50mg Take 1 [facility] 50 mg 1-24 tablet by ity of tablet 00:00: mouth as [place] 00 needed for Medical Migraine. Branch May repeat dose after >=2 hours, max dose 200mg in 24 hours. polyethylen 2023-0 Yes [id number] 17g Take 1 [facility] e glycol 1-24 Packet by ity of 3350 17 00:00: mouth in [place] gram powder 00 the Medical morning Branch and 1 Packet in the evening. lactulose 2023-0 Yes [id number] 30mL Take 30 mL [facility] 10 gram/15 1-24 by mouth ity o f mL solution 00:00: in the [facility] morning Medical and 30 mL Branch in the evening. ondansetron 2023-0 Yes [id number] 4mg Take 1 [facility] 4 mg 1-24 tablet by ity of disintegrat 00:00: mouth [place] ing tablet 00 every 8 Medica l (eight) Branch hours as needed for Nausea and Vomiting (N/V). sucralfate 2023-0 Yes [id number] 1g Take 1 [facility] 1 gram 1-24 tablet by ity of tablet 00:00: mouth [place] 00 before Medical meals and Branch at bedtime. pantoprazol 2023-0 Yes [id number] 40mg Take 1 [facility] e 40 mg EC 1-24 tablet by ity of tablet 00:00: mouth in [place] 00 the Medical morning Branch and 1 tablet in the evening. SUMAtriptan 2023-0 Yes [id number] 50mg Take 1 [facility] 50 mg 1-24 tablet by ity of tablet 00:00: mouth as [place] 00 needed for Medical Migraine. Branch May repeat dose after >=2 hours, max dose 200mg in 24 hours. polyethylen 3-0 Yes [id number] 17g Take 1 [facility] e glycol 1-24 Packet by ity of 3350 17 00:00: mouth in [place] gram powder 00 the Medical morning Branch and 1 Packet in the evening. lactulose 3-0 Yes [id number] 30mL Take 30 mL [facility] 10 gram/15 1-24 by mouth ity o f mL solution 00:00: in the [facility] s 00 morning Medical and 30 mL Branch in the evening. ondansetron 3-0 Yes [id number] 4mg Take 1 [facility] 4 mg 1-24 tablet by ity of disintegrat 00:00: mouth [place] ing tablet 00 every 8 Medica l (eight) Branch hours as needed for Nausea and Vomiting (N/V). sucralfate 2023-0 Yes [id number] 1g Take 1 [facility] 1 gram 1-24 tablet by ity of tablet 00:00: mouth [place] 00 before Medical meals and Branch at bedtime. pantoprazol 2023-0 Yes [id number] 40mg Take 1 [facility] e 40 mg EC 1-24 tablet by ity of tablet 00:00: mouth in [place] 00 the Medical morning Branch and 1 tablet in the evening. SUMAtriptan 2023-0 Yes [id number] 50mg Take 1 [facility] 50 mg 1-24 tablet by ity of tablet 00:00: mouth as 00 needed for Medical Migraine. Branch May repeat dose after >=2 hours, max dose 200mg in 24 hours. polyethylen 2023-0 Yes [id number] 17g Take 1 [facility] e glycol 1-24 Packet by ity of 3350 17 00:00: mouth in [place] gram powder 00 the Medical morning Branch and 1 Packet in the evening. lactulose 2023-0 Yes [id number] 30mL Take 30 mL [facility] 10 gram/15 1-24 by mouth ity o f mL solution 00:00: in the morning Medical and 30 mL Branch in the evening. ondansetron 2023-0 Yes [id number] 4mg Take 1 [facility] 4 mg 1-24 tablet by ity of disintegrat 00:00: mouth [place] ing tablet 00 every 8 Medica l (eight) Branch hours as needed for Nausea and Vomiting (N/V). sucralfate 2023-0 Yes [id number] 1g Take 1 [facility] 1 gram 1-24 tablet by ity of tablet 00:00: mouth 00 before Medical meals and Branch at bedtime. pantoprazol 2023-0 Yes [id number] 40mg Take 1 [facility] e 40 mg EC 1-24 tablet by ity of tablet 00:00: mouth in [place] the Medical morning Branch and 1 tablet in the evening. SUMAtriptan 2023-0 Yes [id number] 50mg Take 1 [facility] 50 mg 1-24 tablet by ity of tablet 00:00: mouth as 00 needed for Medical Migraine. Branch May repeat dose after >=2 hours, max dose 200mg in 24 hours. polyethylen 2023-0 Yes [id number] 17g Take 1 [facility] e glycol 1-24 Packet by ity of 3350 17 00:00: mouth in [place] gram powder 00 the Medical morning Branch and 1 Packet in the evening. lactulose 2023-0 Yes [id number] 30mL Take 30 mL [facility] 10 gram/15 1-24 by mouth ity o f mL solution 00:00: in the morning Medical and 30 mL Branch in the evening. ondansetron 2023-0 Yes [id number] 4mg Take 1 [facility] 4 mg 1-24 tablet by ity of disintegrat 00:00: mouth [place] ing tablet 00 every 8 Medica l (eight) Branch hours as needed for Nausea and Vomiting (N/V). sucralfate 2023-0 Yes [id number] 1g Take 1 [facility] 1 gram 1-24 tablet by ity of tablet 00:00: mouth [place] 00 before Medical meals and Branch at bedtime. pantoprazol 2023-0 Yes [id number] 40mg Take 1 [facility] e 40 mg EC 1-24 tablet by ity of tablet 00:00: mouth in [place] 00 the Medical morning Branch and 1 tablet in the evening. SUMAtriptan 2023-0 Yes [id number] 50mg Take 1 [facility] 50 mg 1-24 tablet by ity of tablet 00:00: mouth as [place] 00 needed for Medical Migraine. Branch May repeat dose after >=2 hours, max dose 200mg in 24 hours. polyethylen 2023-0 Yes [id number] 17g Take 1 [facility] e glycol 1-24 Packet by ity of 3350 17 00:00: mouth in [place] gram powder 00 the Medical morning Branch and 1 Packet in the evening. lactulose 3-0 Yes [id number] 30mL Take 30 mL [facility] 10 gram/15 1-24 by mouth ity o f mL solution 00:00: in the [facility] 00 morning Medical and 30 mL Branch in the evening. ondansetron 3-0 Yes [id number] 4mg Take 1 [facility] 4 mg 1-24 tablet by ity of disintegrat 00:00: mouth [place] ing tablet 00 every 8 Medica l (eight) Branch hours as needed for Nausea and Vomiting (N/V). sucralfate 3-0 Yes [id number] 1g Take 1 [facility] 1 gram 1-24 tablet by ity of tablet 00:00: mouth [place] 00 before Medical meals and Branch at bedtime. pantoprazol 3-0 Yes [id number] 40mg Take 1 [facility] e 40 mg EC 1-24 tablet by ity of tablet 00:00: mouth in [place] 00 the Medical morning Branch and 1 tablet in the evening. SUMAtriptan 2023-0 Yes [id number] 50mg Take 1 [facility] 50 mg 1-24 tablet by ity of tablet 00:00: mouth as [place] 00 needed for Medical Migraine. Branch May repeat dose after >=2 hours, max dose 200mg in 24 hours. polyethylen 2023-0 Yes [id number] 17g Take 1 [facility] e glycol 1-24 Packet by ity of 3350 17 00:00: mouth in [place] gram powder 00 the Medical morning Branch and 1 Packet in the evening. lactulose 2023-0 Yes [id number] 30mL Take 30 mL [facility] 10 gram/15 1-24 by mouth ity o f mL solution 00:00: in the morning Medical and 30 mL Branch in the evening. ondansetron 2023-0 Yes [id number] 4mg Take 1 [facility] 4 mg 1-24 tablet by ity of disintegrat 00:00: mouth [place] ing tablet 00 every 8 Medica l (eight) Branch hours as needed for Nausea and Vomiting (N/V). sucralfate 2023-0 Yes [id number] 1g Take 1 [facility] 1 gram 1-24 tablet by ity of tablet 00:00: mouth 00 before Medical meals and Branch at bedtime. pantoprazol 2023-0 Yes [id number] 40mg Take 1 [facility] e 40 mg EC 1-24 tablet by ity of tablet 00:00: mouth in [place] 00 the Medical morning Branch and 1 tablet in the evening. SUMAtriptan 3-0 Yes [id number] 50mg Take 1 [facility] 50 mg 1-24 tablet by ity of tablet 00:00: mouth as 00 needed for Medical Migraine. Branch May repeat dose after >=2 hours, max dose 200mg in 24 hours. polyethylen 2023-0 Yes [id number] 17g Take 1 [facility] e glycol 1-24 Packet by ity of 3350 17 00:00: mouth in [place] gram powder 00 the Medical morning Branch and 1 Packet in the evening. lactulose 2023-0 Yes [id number] 30mL Take 30 mL [facility] 10 gram/15 1-24 by mouth ity o f mL solution 00:00: in the morning Medical and 30 mL Branch in the evening. ondansetron 2023-0 Yes [id number] 4mg Take 1 [facility] 4 mg 1-24 tablet by ity of disintegrat 00:00: mouth [place] ing tablet 00 every 8 Medica l (eight) Branch hours as needed for Nausea and Vomiting (N/V). sucralfate 2023-0 Yes [id number] 1g Take 1 [facility] 1 gram 1-24 tablet by ity of tablet 00:00: mouth [place] 00 before Medical meals and Branch at bedtime. pantoprazol 2023-0 Yes [id number] 40mg Take 1 [facility] e 40 mg EC 1-24 tablet by ity of tablet 00:00: mouth in [place] 00 the Medical morning Branch and 1 tablet in the evening. SUMAtriptan 2023-0 Yes [id number] 50mg Take 1 [facility] 50 mg 1-24 tablet by ity of tablet 00:00: mouth as [place] 00 needed for Medical Migraine. Branch May repeat dose after >=2 hours, max dose 200mg in 24 hours. polyethylen 2023-0 Yes [id number] 17g Take 1 [facility] e glycol 1-24 Packet by ity of 3350 17 00:00: mouth in [place] gram powder 00 the Medical morning Branch and 1 Packet in the evening. lactulose 2023-0 Yes [id number] 30mL Take 30 mL [facility] 10 gram/15 1-24 by mouth ity o f mL solution 00:00: in the [facility] morning Medical and 30 mL Branch in the evening. ondansetron 3-0 Yes [id number] 4mg Take 1 [facility] 4 mg 1-24 tablet by ity of disintegrat 00:00: mouth [place] ing tablet 00 every 8 Medica l (eight) Branch hours as needed for Nausea and Vomiting (N/V). sucralfate 3-0 Yes [id number] 1g Take 1 [facility] 1 gram 1-24 tablet by ity of tablet 00:00: mouth [place] 00 before Medical meals and Branch at bedtime. pantoprazol 3-0 Yes [id number] 40mg Take 1 [facility] e 40 mg EC 1-24 tablet by ity of tablet 00:00: mouth in [place] 00 the Medical morning Branch and 1 tablet in the evening. SUMAtriptan 3-0 Yes [id number] 50mg Take 1 [facility] 50 mg 1-24 tablet by ity of tablet 00:00: mouth as [place] [address] needed for Medical Migraine. Branch May repeat dose after >=2 hours, max dose 200mg in 24 hours. polyethylen 2023-0 Yes [id number] 17g Take 1 [facility] e glycol 1-24 Packet by ity of 3350 17 00:00: mouth in [place] gram powder 00 the Medical morning Branch and 1 Packet in the evening. lactulose 2023-0 Yes [id number] 30mL Take 30 mL Univers 10 gram/15 1-24 by mouth ity o f mL solution 00:00: in the [facility] morning Medical and 30 mL Branch in the evening. ondansetron 2023-0 Yes [id number] 4mg Take 1 [facility] 4 mg 1-24 tablet by ity of disintegrat 00:00: mouth [place] ing tablet 00 every 8 Medica l (eight) Branch hours as needed for Nausea and Vomiting (N/V). sucralfate 0 Yes [id number] 1g Take 1 [facility] 1 gram 1-24 tablet by ity of tablet 00:00: mouth [place] 00 before Medical meals and Branch at bedtime. pantoprazol 0 Yes [id number] 40mg Take 1 [facility] e 40 mg EC 1-24 tablet by ity of tablet 00:00: mouth in [place] 00 the Medical morning Branch and 1 tablet in the evening. SUMAtriptan 0 Yes [id number] 50mg Take 1 [facility] 50 mg 1-24 tablet by ity of tablet 00:00: mouth as [place] 00 needed for Medical Migraine. Branch May repeat dose after >=2 hours, max dose 200mg in 24 hours. iopamidol 2022- No [id number] 73mL 73 mL, Univers (ISOVUE 10-19 Intravenou ity o f 370-500 mL) 00:00: 00:00 s, ONCE, 1 [place] injection 00 :00 dose, On Medica l 73 mL [facility] 10/18/22 at 1800, Routine lactulose 2022- No 45mL 45 mL, Unive rs (CEPHULAC) 10-18 Oral, ity of solution 45 23:45: 23:48 ONCE, 1 [place] mL 00 :00 dose, On [facility] 10/18/22 at 1745, SABRINA dicyclomine 2022- No 20mg 20 mg, Uni vers (BENTYL) 10-18 Intramuscu ity of injection 22:30: 22:11 lar, ONCE, [place] 20 mg 00 :00 1 dose, On [facility] 10/18/22 at 1630, Routine NaCl 0.9% 2022- No 1000mL at 999 Uni vers (NS) bolus 10-18 mL/hr, ity of infusion 22:30: 23:42 1,000 mL, [place] as 1,000 mL 00 :00 IV Medical Infusion, Branch ONCE, 1 dose, On Tue10/18/22 at 1630, SABRINA MULTIVIT Yes Take by [facility] &MINERALS/F - mouth. ity of ERROUS FUM 21:34: [place] (MULTI 37 Medical VITAMIN Branch ORAL) METHYLCELLU Yes [facility] LOSE (FIBER 10-18 ity of THERAPY 21:34: [place] MISC) 37 Medical Branch DOCUSATE Yes Take by [facility] SODIUM - mouth. ity of (COLACE 21:34: [place] ORAL) 37 Medical Branch vitamin C Yes 1000mg Take 1,000 Univers with derrell 1-23 mg by ity of hips 1,000 21:34: mouth [place] mg tablet 37 daily. Medical Branch DOCOSAHEXAN Yes 1000mg Take 1,000 Univers OIC 1-23 mg by ity of ACID/EPA 21:34: mouth [place] (FISH OIL 37 daily. Medical ORAL) Branch FOLIC ACID Yes Take by [facility] ers ORAL - mouth ity of 20:39: daily. [place] [address] Medical Branch cholecalcif Yes 1000U Take 1,000 Univers edmar, 1-23 Units by ity of vitamin D3, 20:39: mouth [place] 25 mcg 28 daily. Medical (1,000 Branch unit) tablet CRANBERRY Yes Take by [facility] rs FRUIT - mouth ity of EXTRACT 20:39: daily. [place] (CRANBERRY 28 Medical ORAL) Branch CALCIUM Yes Take by Univers ORAL - mouth ity of 20:39: daily. [place] [address] Medical Branch BIOTIN ORAL Yes Take by Uni vers - mouth. ity of 20:39: [place] [address] Medical Branch peg-electro Yes [id number] Take as Univers lyte soln 1-20 9102 directed ity of 236-22.74-6 00:00: [place] .74 -5.86 00 colonoscop Medi cipriano gram y Branch solution peg-electro 2022-0 Yes [id number] Take as Univers lyte soln 1-20 9102 directed ity of 236-22.74-6 00:00: [place] .[place] -5.86 00 colonoscop Medi cipriano gram y Branch solution peg-electro 2022-0 Yes [id number] Take as Univers lyte soln 10-15 9102 directed ity of 236-22.74-6 00:00: [place] .[place] -5.86 00 colonoscop Medi cipriano gram y Branch solution peg-electro Yes [id number] Take as Univers lyte soln 10-15 9102 directed ity of 236-22.74-6 00:00: [place] .[place] -5.86 00 colonoscop Medi cipriano gram y Branch solution peg-electro 0 Yes [id number] Take as Univers lyte soln 10-15 9102 directed ity of 236-22.74-6 00:00: [place] .[place] -5.86 00 colonoscop Medi cipriano gram y Branch solution peg-electro 0 2022- No [id number] Take as Univers lyte soln 10-15 9102 directed ity o f 236-22.74-6 00:00: 00:00 before [place] .74 -5.86 00 :00 colonoscop Medi cipriano gram y Branch solution peg-electro 2022-0 2022- No [id number] Take as Univers lyte soln 10-15 9102 directed ity o f 236-22.74-6 00:00: 00:00 before [place] .74 -5.86 00 :00 colonoscop Medi cipriano gram y Branch solution busPIRone 3-0 Yes [id number] 20mg Take 2 Un [place] 10 mg 1-17 tablets by ity of tablet 00:00: mouth in [place] 00 the Medical morning Branch and 2 tablets in the evening. busPIRone 3-0 Yes [id number] 20mg Take 2 [facility] [place] 10 mg 1-17 tablets by ity of tablet 00:00: mouth in [place] 00 the Medical morning Branch and 2 tablets in the evening. busPIRone 2023-0 Yes [id number] 20mg Take 2 [place] 10 mg 1-17 tablets by ity of tablet 00:00: mouth in [place] 00 the Medical morning Branch and 2 tablets in the evening. busPIRone 2023-0 Yes [id number] 20mg Take 2 [place] 10 mg 1-17 tablets by ity of tablet 00:00: mouth in [place] 00 the Medical morning Branch and 2 tablets in the evening. busPIRone 2023-0 Yes [id number] 20mg Take 2 [facility] [place] 10 mg 1-17 tablets by ity of tablet 00:00: mouth in [place] 00 the Medical morning Branch and 2 tablets in the evening. busPIRone 2023-0 Yes [id number] 20mg Take 2 Un [place] 10 mg 1-17 tablets by ity of tablet 00:00: mouth in [place] 00 the Medical morning Branch and 2 tablets in the evening. busPIRone 2023-0 Yes [id number] 20mg Take 2 [facility] [place] 10 mg 1-17 tablets by ity of tablet 00:00: mouth in [place] 00 the Medical morning Branch and 2 tablets in the evening. busPIRone 2023-0 Yes [id number] 20mg Take 2 Un [place] 10 mg 1-17 tablets by ity of tablet 00:00: mouth in [place] 00 the Medical morning Branch and 2 tablets in the evening. busPIRone 2023-0 Yes [id number] 20mg Take 2 [facility] [place] 10 mg 1-17 tablets by ity of tablet 00:00: mouth in [place] 00 the Medical morning Branch and 2 tablets in the evening. busPIRone 2023-0 Yes [id number] 20mg Take 2 [place] 10 mg 1-17 tablets by ity of tablet 00:00: mouth in [place] 00 the Medical morning Branch and 2 tablets in the evening. busPIRone 2023-0 Yes [id number] 20mg Take 2 [place] 10 mg 1-17 tablets by ity of tablet 00:00: mouth in [place] 00 the Medical morning Branch and 2 tablets in the evening. busPIRone 2023-0 Yes [id number] 20mg Take 2 [place] 10 mg 1-17 tablets by ity of tablet 00:00: mouth in [place] 00 the Medical morning Branch and 2 tablets in the evening. busPIRone 2023-0 Yes [id number] 20mg Take 2 [place] 10 mg 1-17 tablets by ity of tablet 00:00: mouth in [place] 00 the Medical morning Branch and 2 tablets in the evening. busPIRone 2023-0 Yes [id number] 20mg Take 2 Un [place] 10 mg 1-17 tablets by ity of tablet 00:00: mouth in [place] 00 the Medical morning Branch and 2 tablets in the evening. busPIRone 2023-0 Yes [id number] 20mg Take 2 [place] 10 mg 1-17 tablets by ity of tablet 00:00: mouth in [place] 00 the Medical morning Branch and 2 tablets in the evening. busPIRone 2023-0 Yes [id number] 20mg Take 2 [facility] [place] 10 mg 1-17 tablets by ity of tablet 00:00: mouth in [place] 00 the Medical morning Branch and 2 tablets in the evening. busPIRone 2023-0 Yes [id number] 20mg Take 2 [place] 10 mg 1-17 tablets by ity of tablet 00:00: mouth in [place] 00 the Medical morning Branch and 2 tablets in the evening. busPIRone 2023-0 Yes [id number] 20mg Take 2 [place] 10 mg 1-17 tablets by ity of tablet 00:00: mouth in [place] 00 the Medical morning Branch and 2 tablets in the evening. busPIRone 2023-0 Yes [id number] 20mg Take 2 [place] 10 mg 1-17 tablets by ity of tablet 00:00: mouth in [place] 00 the Medical morning Branch and 2 tablets in the evening. busPIRone 2023-0 Yes [id number] 20mg Take 2 [place] 10 mg 1-17 tablets by ity of tablet 00:00: mouth in [place] 00 the Medical morning Branch and 2 tablets in the evening. busPIRone 2023-0 Yes [id number] 20mg Take 2 [place] 10 mg 1-17 tablets by ity of tablet 00:00: mouth in [place] 00 the Medical morning Branch and 2 tablets in the evening. busPIRone 2023-0 Yes [id number] 20mg Take 2 [place] 10 mg 1-17 tablets by ity of tablet 00:00: mouth in [place] 00 the Medical morning Branch and 2 tablets in the evening. busPIRone 2023-0 Yes [id number] 20mg Take 2 [place] 10 mg 1-17 tablets by ity of tablet 00:00: mouth in [place] 00 the Medical morning Branch and 2 tablets in the evening. busPIRone 2023-0 Yes [id number] 20mg Take 2 [place] 10 mg 1-17 tablets by ity of tablet 00:00: mouth in [place] 00 the Medical morning Branch and 2 tablets in the evening. busPIRone 2023-0 Yes [id number] 20mg Take 2 [place] 10 mg 1-17 tablets by ity of tablet 00:00: mouth in [place] 00 the Medical morning Branch and 2 tablets in the evening. busPIRone 2023-0 Yes [id number] 20mg Take 2 [place] 10 mg 1-17 tablets by ity of tablet 00:00: mouth in [place] 00 the Medical morning Branch and 2 tablets in the evening. busPIRone 2023-0 Yes [id number] 20mg Take 2 [place] 10 mg 1-17 tablets by ity of tablet 00:00: mouth in [place] 00 the Medical morning Branch and 2 tablets in the evening. busPIRone 2023-0 Yes [id number] 20mg Take 2 [place] 10 mg 1-17 tablets by ity of tablet 00:00: mouth in [place] 00 the Medical morning Branch and 2 tablets in the evening. busPIRone 2023-0 Yes [id number] 20mg Take 2 [place] 10 mg 1-17 tablets by ity of tablet 00:00: mouth in [place] 00 the Medical morning Branch and 2 tablets in the evening. busPIRone 2023-0 Yes [id number] 20mg Take 2 [place] 10 mg 1-17 tablets by ity of tablet 00:00: mouth in [place] 00 the Medical morning Branch and 2 tablets in the evening. busPIRone 2023-0 Yes [id number] 20mg Take 2 [place] 10 mg 1-17 tablets by ity of tablet 00:00: mouth in [place] 00 the Medical morning Branch and 2 tablets in the evening. busPIRone 2023-0 Yes [id number] 20mg Take 2 [place] 10 mg 1-17 tablets by ity of tablet 00:00: mouth in [place] 00 the Medical morning Branch and 2 tablets in the evening. busPIRone 2023-0 Yes [id number] 20mg Take 2 [place] 10 mg 1-17 tablets by ity of tablet 00:00: mouth in [place] 00 the Medical morning Branch and 2 tablets in the evening. busPIRone 2023-0 Yes [id number] 20mg Take 2 [place] 10 mg 1-17 tablets by ity of tablet 00:00: mouth in [place] 00 the Medical morning Branch and 2 tablets in the evening. busPIRone 2023-0 Yes [id number] 20mg Take 2 [place] 10 mg 1-17 tablets by ity of tablet 00:00: mouth in [place] 00 the Medical morning Branch and 2 tablets in the evening. busPIRone 2022-0 Yes [id number] 20mg Take 2 Un [place] 10 mg 1-17 tablets by ity of tablet 00:00: mouth in [place] 00 the Medical morning Branch and 2 tablets in the evening. sulfamethox 2022-0 Yes TAKE 1 Univ ers azole-trime 1-14 TABLET BY ity of thoprim 00:00: MOUTH [place] 800-160 mg 00 EVERY 12 Medic al per tablet HOURS FOR Bran ch 7 DAYS traMADoL 50 2022-0 Yes TAKE 1 Univ ers mg tablet 1-14 TABLET BY ity o f 00:00: MOUTH [place] 00 EVERY 8 Medical HOURS Branch NEEDED sulfamethox 2022-0 Yes TAKE 1 Univ ers azole-trime 1-14 TABLET BY ity of thoprim 00:00: MOUTH [place] 800-160 mg 00 EVERY 12 Medic al per tablet HOURS FOR Bran ch 7 DAYS traMADoL 50 2022-0 Yes TAKE 1 Univ ers mg tablet 1-14 TABLET BY ity o f 00:00: MOUTH [place] 00 EVERY 8 Medical HOURS Branch NEEDED sulfamethox 2022-0 Yes TAKE 1 Univ ers azole-trime 1-14 TABLET BY ity of thoprim 00:00: MOUTH [place] 800-160 mg 00 EVERY 12 Medic al per tablet HOURS FOR Bran ch 7 DAYS traMADoL 50 2022-0 Yes TAKE 1 Univ ers mg tablet 1-14 TABLET BY ity o f 00:00: MOUTH [place] 00 EVERY 8 Medical HOURS Branch NEEDED sulfamethox 2022-0 Yes TAKE 1 Univ ers azole-trime 1-14 TABLET BY ity of thoprim 00:00: MOUTH [place] 800-160 mg 00 EVERY 12 Medic al per tablet HOURS FOR Bran ch 7 DAYS traMADoL 50 2022-0 Yes TAKE 1 Univ ers mg tablet 1-14 TABLET BY ity o f 00:00: MOUTH [place] 00 EVERY 8 Medical HOURS Branch NEEDED traMADoL 50 2022-0 Yes TAKE 1 Univ ers mg tablet 1-14 TABLET BY ity o f 00:00: MOUTH [place] 00 EVERY 8 Medical HOURS Branch NEEDED traMADoL 50 2022-0 2022- No 50mg Take 50 mg Univers mg tablet 1-14 01-25 by mouth ity o f 00:00: 00:00 [...] 2022- No TAKE 1 Uni vers azole-trime 10-09 TABLET BY it y of thoprim 00:00: 00:00 MOUTH [place] 800-160 mg 00 :00 EVERY 12 Medic al per tablet HOURS FOR Bran ch 7 DAYS sulfamethox 2022- No TAKE 1 Uni vers azole-trime 10-09 TABLET BY it y of thoprim 00:00: 00:00 MOUTH [place] 800-160 mg 00 :00 EVERY 12 Medic al per tablet HOURS FOR Bran ch 7 DAYS sulfamethox 2022- No TAKE 1 Uni vers azole-trime 10-09 TABLET BY it y of thoprim 00:00: 00:00 MOUTH [place] 800-160 mg 00 :00 EVERY 12 Medic al per tablet HOURS FOR Bran ch 7 DAYS metroNIDAZO 0 Yes [id number] 500mg Take 1 Univers LE 500 mg 1-12 tablet by ity o f tablet 00:00: mouth in [place] 00 the Medical morning Branch and 1 tablet in the evening. dicyclomine 0 Yes [id number] 20mg Take 1 [facility] 20 mg 1-12 tablet by ity of tablet 00:00: mouth 4 [place] 00 (four) Medical times Branch daily. metroNIDAZO 2022-0 Yes [id number] 500mg Take 1 [facility] LE 500 mg 1-12 tablet by ity o f tablet 00:00: mouth in [place] 00 the Medical morning Branch and 1 tablet in the evening. dicyclomine 0 Yes [id number] 20mg Take 1 [facility] 20 mg 1-12 tablet by ity of tablet 00:00: mouth 4 [place] 00 (four) Medical times Branch daily. metroNIDAZO 2022-0 Yes [id number] 500mg Take 1 [facility] LE 500 mg 1-12 tablet by ity o f tablet 00:00: mouth in [place] 00 the Medical morning Branch and 1 tablet in the evening. dicyclomine 2023-0 Yes [id number] 20mg Take 1 [facility] 20 mg 1-12 tablet by ity of tablet 00:00: mouth 4 [place] ([facility]) Medical times [place] daily. metroNIDAZO 2023-0 Yes [id number] 500mg Take 1 Univers LE 500 mg 1-12 tablet by ity o f tablet 00:00: mouth in [place] 00 the Medical morning Branch and 1 tablet in the evening. dicyclomine 2023-0 Yes [id number] 20mg Take 1 [facility] 20 mg 1-12 tablet by ity of tablet 00:00: mouth 4 [place] ([facility]) Medical times [place] daily. metroNIDAZO 2023-0 Yes [id number] 500mg Take 1 [facility] LE 500 mg 1-12 tablet by ity o f tablet 00:00: mouth in [place] 00 the Medical morning Branch and 1 tablet in the evening. dicyclomine 2023-0 Yes [id number] 20mg Take 1 [facility] 20 mg 1-12 tablet by ity of tablet 00:00: mouth 4 [place] ([facility]) Medical times [place] daily. metroNIDAZO 2023-0 Yes [id number] 500mg Take 1 [facility] LE 500 mg 1-12 tablet by ity o f tablet 00:00: mouth in [place] 00 the Medical morning Branch and 1 tablet in the evening. dicyclomine 2023-0 Yes [id number] 20mg Take 1 [facility] 20 mg 1-12 tablet by ity of tablet 00:00: mouth 4 [place] ([facility]) Medical times [place] daily. metroNIDAZO 2023-0 2023- No [id number] 500mg Take 1 [facility] LE 500 mg 1-12 -24 tablet by ity of tablet 00:00: 00:00 mouth in [place] 00 :00 the Medical morning Branch and 1 tablet in the evening. dicyclomine 2023-0 2023- No [id number] 20mg Take 1 [facility] 20 mg 1-12 -24 tablet by ity of tablet 00:00: 00:00 mouth 4 [place] 00 :00 ([facility]) Medical times Branch daily. metroNIDAZO 2023-0 2023- No [id number] 500mg Take 1 [facility] LE 500 mg 1-12 -24 tablet by ity of tablet 00:00: 00:00 mouth in [place] 00 :00 the Medical morning Branch and 1 tablet in the evening. dicyclomine 2023-0 2023- No [id number] 20mg Take 1 [facility] 20 mg 10-07 tablet by ity of tablet 00:00: 00:00 mouth 4 [place] 00 :00 ([facility]) Medical times Branch daily. metroNIDAZO 2023-0 2023- No [id number] 500mg Take 1 [facility] LE 500 mg 10-07 tablet by ity of tablet 00:00: 00:00 mouth in [place] 00 :00 the Medical morning Branch and 1 tablet in the evening. dicyclomine 2023-0 2023- No [id number] 20mg Take 1 [facility] 20 mg 10-07 tablet by ity of tablet 00:00: 00:00 mouth 4 [place] 00 :00 ([facility]) Medical times Branch daily. dicyclomine 2023-0 Yes 20mg Take 20 mg Univers 20 mg 1-10 by mouth 4 ity of tablet 00:00: ([facility]) [place] 00 times Medical daily. Branch metoclopram 2023-0 Yes TAKE 1 Univ ers dariela HCl 10 1-10 TABLET BY ity of mg tablet 00:00: [facility] 00 EVERY 6 Medical HOURS (30 Branch MINUTES BEFORE MEALS AND AT BEDTIME) dicyclomine 2023-0 Yes 20mg Take 20 mg Univers 20 mg 1-10 by mouth 4 ity of tablet 00:00: ([facility]) [place] 00 times Medical daily. Branch metoclopram 2023-0 Yes TAKE 1 Univ ers dariela HCl 10 1-10 TABLET BY ity of mg tablet 00:00: MOUTH [place] 00 EVERY 6 Medical HOURS (30 Branch MINUTES BEFORE MEALS AND AT BEDTIME) metoclopram 2023-0 Yes TAKE 1 Univ ers dariela HCl 10 1-10 TABLET BY ity of mg tablet 00:00: [facility] 00 EVERY 6 Medical HOURS (30 Branch MINUTES BEFORE MEALS AND AT BEDTIME) metoclopram 2023-0 Yes TAKE 1 Univ ers dariela HCl 10 1-10 TABLET BY ity of mg tablet 00:00: MOUTH [place] 00 EVERY 6 Medical HOURS (30 Branch [...] MINUTES BEFORE MEALS AND AT BEDTIME) metoclopram 2022-0 Yes TAKE 1 Univ ers dariela HCl 10 1-10 TABLET BY ity of mg tablet 00:00: MOUTH [place] 00 EVERY 6 Medical HOURS (30 Branch MINUTES BEFORE MEALS AND AT BEDTIME) metoclopram 2022-0 Yes TAKE 1 Univ ers dariela HCl 10 1-10 TABLET BY ity of mg tablet 00:00: MOUTH [place] 00 EVERY 6 Medical HOURS (30 Branch MINUTES BEFORE MEALS AND AT BEDTIME) dicyclomine 2022-0 2022- No 20mg Take 20 mg Univers 20 [...] Medica l NEEDED Branch pregabalin 2021-09 Yes [id number] 150mg Take 1 [facility] 150 mg 2-14 capsule by ity of capsule 00:00: mouth in [address] morning [place] and 1 capsule at noon and 1 capsule in the evening. pregabalin 2021-09 Yes [id number] 150mg Take 1 [facility] 150 mg 2-14 capsule by ity of capsule 00:00: mouth in [address] morning [place] and 1 capsule at noon and 1 capsule in the evening. pregabalin 2021-09 Yes [id number] 150mg Take 1 [facility] 150 mg 2-14 capsule by ity of capsule 00:00: mouth in [address] morning [place] and 1 capsule at noon and 1 capsule in the evening. pregabalin 2021-09 Yes [id number] 150mg Take 1 [facility] 150 mg 2-14 capsule by ity of capsule 00:00: mouth in [address] morning [place] and 1 capsule at noon and 1 capsule in the evening. pregabalin 2022-1 Yes [id number] 150mg Take 1 [facility] 150 mg 2-14 capsule by ity of capsule 00:00: mouth in [address] Medical morning [place] and 1 capsule at noon and 1 capsule in the evening. pregabalin 2021-09 Yes [id number] 150mg Take 1 [facility] 150 mg 2-14 capsule by ity of capsule 00:00: mouth in [place] [address] the [facility] morning [place] and 1 capsule at noon and 1 capsule in the evening. pregabalin 2021-09 Yes [id number] 150mg Take 1 [facility] 150 mg 2-14 capsule by ity of capsule 00:00: mouth in [address] morning [place] and 1 capsule at noon and 1 capsule in the evening. pregabalin 2021-09 Yes [id number] 150mg Take 1 [facility] 150 mg 2-14 capsule by ity of capsule 00:00: mouth in [address] morning [place] and 1 capsule at noon and 1 capsule in the evening. pregabalin 2021-09 Yes [id number] 150mg Take 1 [facility] 150 mg 2-14 capsule by ity of capsule 00:00: mouth in [address] morning [place] and 1 capsule at noon and 1 capsule in the evening. pregabalin 2021-09 Yes [id number] 150mg Take 1 [facility] 150 mg 2-14 capsule by ity of capsule 00:00: mouth in [address] morning [place] and 1 capsule at noon and 1 capsule in the evening. pregabalin 2021-09 Yes [id number] 150mg Take 1 [facility] 150 mg 2-14 capsule by ity of capsule 00:00: mouth in [address] morning [place] and 1 capsule at noon and 1 capsule in the evening. pregabalin 2021-09 Yes [id number] 150mg Take 1 [facility] 150 mg 2-14 capsule by ity of capsule 00:00: mouth in [address] morning [place] and 1 capsule at noon and 1 capsule in the evening. pregabalin 2021-09- No [id number] 150mg Take 1 [facility] 150 mg 2-14 10-19 capsule by ity of capsule 00:00: 00:00 mouth in [place] 00 :00 [facility] morning [place] and 1 capsule at noon and 1 capsule in the evening. pregabalin 2021-09- No [id number] 150mg Take 1 [facility] 150 mg 2-14 10-19 capsule by ity of capsule 00:00: 00:00 mouth in [place] 00 :00 the Medical morning Branch and 1 capsule at noon and 1 capsule in the evening. pregabalin 2021-09- No [id number] 150mg Take 1 [facility] 150 mg 11-09 capsule by ity of capsule 00:00: 00:00 mouth in [place] 00 :00 the Medical morning Branch and 1 capsule at noon and 1 [facility]. [facility] Yes [id number] 10mg Take 1 Univers (SINGULAIR) 2-09 tablet by ity of 10 mg 00:00: mouth in [place] tablet 00 [facility] [id number] 10mg Take 1 Univers (SINGULAIR) 2-09 tablet by ity of 10 mg 00:00: mouth in [place] tablet 00 the Medical morning. [facility] Yes [id number] 10mg Take 1 [facility] (SINGULAIR) 2-09 tablet by ity of 10 mg 00:00: mouth in [place] tablet 00 the Medical morning. [facility] Yes [id number] 10mg Take 1 Univers (SINGULAIR) 2-09 tablet by ity of 10 mg 00:00: mouth in [place] tablet 00 the Medical morning. [facility] 2021-09 Yes [id number] 10mg Take 1 Univers (SINGULAIR) 2-09 tablet by ity of 10 mg 00:00: mouth in [place] tablet 00 the Medical morning. [facility] Yes [id number] 10mg Take 1 Univers (SINGULAIR) 2-09 tablet by ity of 10 mg 00:00: mouth in [place] tablet 00 the Medical morning. [place] [facility] Yes [id number] 10mg Take 1 Univers (SINGULAIR) 2-09 tablet by ity of 10 mg 00:00: mouth in [place] tablet 00 the Medical morning. [facility] 2021-09 Yes [id number] 10mg Take 1 Univers (SINGULAIR) 2-09 tablet by ity of 10 mg 00:00: mouth in [place] tablet 00 the Medical morning. [facility] 2021-09 Yes [id number] 10mg Take 1 Univers (SINGULAIR) 2-09 tablet by ity of 10 mg 00:00: mouth in [place] tablet 00 the Medical morning. [facility] 2021-09 Yes [id number] 10mg Take 1 Univers (SINGULAIR) 2-09 tablet by ity of 10 mg 00:00: mouth in [place] tablet 00 the Medical morning. [facility] 2021-09 Yes [id number] 10mg Take 1 Univers (SINGULAIR) 2-09 tablet by ity of 10 mg 00:00: mouth in [place] tablet 00 the Medical morning. [facility] 2021-09 Yes [id number] 10mg Take 1 [facility] (SINGULAIR) 2-09 tablet by ity of 10 mg 00:00: mouth in [place] tablet 00 the Medical morning. [facility] 2021-09 Yes [id number] 10mg Take 1 Univers (SINGULAIR) 2-09 tablet by ity of 10 mg 00:00: mouth in [place] tablet 00 the Medical morning. [facility] 2021-09 Yes [id number] 10mg Take 1 Univers (SINGULAIR) 2-09 tablet by ity of 10 mg 00:00: mouth in [place] tablet 00 the Medical morning. [facility] 2021-09 Yes [id number] 10mg Take 1 Univers (SINGULAIR) 2-09 tablet by ity of 10 mg 00:00: mouth in [place] tablet 00 the Medical morning. [facility] 2021-09 Yes [id number] 10mg Take 1 Univers (SINGULAIR) 2-09 tablet by ity of 10 mg 00:00: mouth in [place] tablet 00 the Medical morning. [facility] 2021-09 Yes [id number] 10mg Take 1 Univers (SINGULAIR) 2-09 tablet by ity of 10 mg 00:00: mouth in [place] tablet 00 the Medical morning. [facility] 2021-09 Yes [id number] 10mg Take 1 Univers (SINGULAIR) 2-09 tablet by ity of 10 mg 00:00: mouth in [place] tablet 00 the Medical morning. [facility] 2021-09 Yes [id number] 10mg Take 1 Univers (SINGULAIR) 2-09 tablet by ity of 10 mg 00:00: mouth in [place] tablet 00 the Medical morning. [facility] 2021-09 Yes [id number] 10mg Take 1 Univers (SINGULAIR) 2-09 tablet by ity of 10 mg 00:00: mouth in [place] tablet 00 the Medical morning. [facility] 2021-09 Yes [id number] 10mg Take 1 Univers (SINGULAIR) 2-09 tablet by ity of 10 mg 00:00: mouth in [place] tablet 00 the Medical morning. [facility] 2021-09 Yes [id number] 10mg Take 1 Univers (SINGULAIR) 2-09 tablet by ity of 10 mg 00:00: mouth in [place] tablet 00 the Medical morning. [facility] 2021-09 Yes [id number] 10mg Take 1 [facility] (SINGULAIR) 2-09 tablet by it[facility] of 10 mg 00:00: mouth in [place] tablet 00 the Medical morning. [facility] 2021-09 Yes [id number] 10mg Take 1 [facility] (SINGULAIR) 2-09 tablet by ity of 10 mg 00:00: mouth in [place] tablet 00 the Medical morning. [facility] 2021-09 Yes [id number] 10mg Take 1 [facility] (SINGULAIR) 2-09 tablet by ity of 10 mg 00:00: mouth in [place] tablet 00 the Medical morning. [facility] 2021-09 Yes [id number] 10mg Take 1 [facility] (SINGULAIR) 2-09 tablet by ity of 10 mg 00:00: mouth in [place] tablet 00 the Medical morning. [facility] 2021-09 Yes [id number] 10mg Take 1 [facility] (SINGULAIR) 2-09 tablet by ity of 10 mg 00:00: mouth in [place] tablet 00 the Medical morning. [facility] 2021-09 Yes [id number] 10mg Take 1 [facility] (SINGULAIR) 2-09 tablet by ity of 10 mg 00:00: mouth in [place] tablet 00 the Medical morning. [facility] 2021-09 Yes [id number] 10mg Take 1 [facility] (SINGULAIR) 2-09 tablet by ity of 10 mg 00:00: mouth in [place] tablet 00 the Medical morning. [facility] 2021-09 Yes [id number] 10mg Take 1 [facility] (SINGULAIR) 2-09 tablet by ity of 10 mg 00:00: mouth in [place] tablet 00 the Medical morning. [facility] 2021-09 Yes [id number] 10mg Take 1 [facility] (SINGULAIR) 2-09 tablet by ity of 10 mg 00:00: mouth in [place] tablet 00 the Medical morning. [facility] 2021-09 Yes [id number] 10mg Take 1 [facility] (SINGULAIR) 2-09 tablet by ity of 10 mg 00:00: mouth in [place] tablet 00 the Medical morning. [facility] 2021-09 Yes [id number] 10mg Take 1 [facility] (SINGULAIR) 2-09 tablet by ity of 10 mg 00:00: mouth in [place] tablet 00 the Medical morning. [facility] 2021-09 Yes [id number] 10mg Take 1 [facility] (SINGULAIR) 2-09 tablet by ity of 10 mg 00:00: mouth in [place] tablet 00 the Medical morning. [facility] 2021-09 Yes [id number] 10mg Take 1 [facility] (SINGULAIR) 2-09 tablet by ity of 10 mg 00:00: mouth in [place] tablet 00 the Medical morning. [facility] 2021-09 Yes [id number] 10mg Take 1 [facility] (SINGULAIR) 2-09 tablet by ity of 10 mg 00:00: mouth in [place] tablet 00 the Medical morning. [facility] 2021-09 Yes [id number] 10mg Take 1 [facility] (SINGULAIR) 2-09 tablet by ity of 10 mg 00:00: mouth in [place] tablet 00 the Medical morning. [facility] 2021-09 Yes [id number] 10mg Take 1 [facility] (SINGULAIR) 2-09 tablet by ity of 10 mg 00:00: mouth in [place] tablet 00 the Medical morning. [facility] 2021-09 Yes [id number] 10mg Take 1 [facility] (SINGULAIR) 2-09 tablet by ity of 10 mg 00:00: mouth in [place] tablet 00 the Medical morning. [facility] 2021-09 Yes [id number] 10mg Take 1 [facility] (SINGULAIR) 2-09 tablet by ity of 10 mg 00:00: mouth in [place] tablet 00 the Medical morning. [facility] 2021-09 Yes [id number] 10mg Take 1 [facility] (SINGULAIR) 2-09 tablet by ity of 10 mg 00:00: mouth in [place] tablet 00 the Medical morning. [facility] montelukast 2021-09 Yes [id number] 10mg Take 1 [facility] (SINGULAIR) 2-09 tablet by ity of 10 mg 00:00: mouth in [place] tablet 00 the Medical morning. [facility] montelukast 2021-09 Yes [id number] 10mg Take 1 [facility] (SINGULAIR) 2-09 tablet by ity of 10 mg 00:00: mouth in [place] tablet 00 the Medical morning. [facility] montelukast 2021-09 Yes [id number] 10mg Take 1 [facility] (SINGULAIR) 2-09 tablet by ity of 10 mg 00:00: mouth in [place] tablet 00 the Medical morning. [facility] montelukast 2021-09 Yes [id number] 10mg Take 1 [facility] (SINGULAIR) 2-09 tablet by ity of 10 mg 00:00: mouth in [place] tablet 00 the Medical morning. [facility] montelukast 2021-09 Yes [id number] 10mg Take 1 [facility] (SINGULAIR) 2-09 tablet by ity of 10 mg 00:00: mouth in [place] tablet 00 the Medical morning. [facility] montelukast 2021-09 Yes [id number] 10mg Take 1 [facility] (SINGULAIR) 2-09 tablet by ity of 10 mg 00:00: mouth in [place] tablet 00 the Medical morning. [facility] famotidine 2021-09 Yes TAKE 1 Unive rs [...] Medical 7 DAYS Branch CYANOCOBALA 2021-09 Yes [id number] INJECT 1ML [facility] MIN 1,000 1-30 INTRAMUSCU ity of mcg/mL 00:00: LARLY [place] injection 00 EVERY TWO Medic al WEEKS Branch CYANOCOBALA 2021-09 Yes [id number] INJECT 1ML [facility] MIN 1,000 1-30 INTRAMUSCU ity of mcg/mL 00:00: LARLY [place] injection 00 EVERY TWO Medic al WEEKS Branch CYANOCOBALA 2021-09 Yes [id number] INJECT 1ML [facility] MIN 1,000 1-30 INTRAMUSCU ity of mcg/mL 00:00: LARLY [place] injection 00 EVERY TWO Medic al WEEKS Branch CYANOCOBALA 2021-09 Yes [id number] INJECT 1ML [facility] MIN 1,000 1-30 INTRAMUSCU ity of mcg/mL 00:00: LARLY [place] injection 00 EVERY TWO Medic al WEEKS Branch CYANOCOBALA 2021-09 Yes [id number] INJECT 1ML [facility] MIN 1,000 1-30 INTRAMUSCU ity of mcg/mL 00:00: LARLY [place] injection 00 EVERY TWO Medic al WEEKS Branch CYANOCOBALA 2021-09 Yes [id number] INJECT 1ML [facility] MIN 1,000 1-30 INTRAMUSCU ity of mcg/mL 00:00: LARLY [place] injection 00 EVERY TWO Medic al WEEKS Branch CYANOCOBALA 2021-09 Yes [id number] INJECT 1ML [facility] MIN 1,000 1-30 INTRAMUSCU ity of mcg/mL 00:00: LARLY [place] injection 00 EVERY TWO Medic al WEEKS Branch CYANOCOBALA 2021-09 Yes [id number] INJECT 1ML [facility] MIN 1,000 1-30 INTRAMUSCU ity of mcg/mL 00:00: LARLY [place] injection 00 EVERY TWO Medic al WEEKS Branch CYANOCOBALA 2021-09 Yes [id number] INJECT 1ML [facility] MIN 1,000 1-30 INTRAMUSCU ity of mcg/mL 00:00: LARLY [place] injection 00 EVERY TWO Medic al WEEKS Branch CYANOCOBALA 2021-09 Yes [id number] INJECT 1ML [facility] MIN 1,000 1-30 INTRAMUSCU ity of mcg/mL 00:00: LARLY [place] injection 00 EVERY TWO Medic al WEEKS Branch CYANOCOBALA 2021-09 Yes [id number] INJECT 1ML [facility] MIN 1,000 1-30 INTRAMUSCU ity of mcg/mL 00:00: LARLY [place] injection 00 EVERY TWO Medic al WEEKS Branch CYANOCOBALA 2021-09 Yes [id number] INJECT 1ML [facility] MIN 1,000 1-30 INTRAMUSCU ity of mcg/mL 00:00: LARLY [place] injection 00 EVERY TWO Medic al WEEKS Branch CYANOCOBALA 2021-09 Yes [id number] INJECT 1ML [facility] MIN 1,000 1-30 INTRAMUSCU ity of mcg/mL 00:00: LARLY [place] injection 00 EVERY TWO Medic al WEEKS Branch CYANOCOBALA 2021-09 Yes [id number] INJECT 1ML [facility] MIN 1,000 1-30 INTRAMUSCU ity of mcg/mL 00:00: LARLY [place] injection 00 EVERY TWO Medic al WEEKS Branch CYANOCOBALA 2021-09 Yes [id number] INJECT 1ML [facility] MIN 1,000 1-30 INTRAMUSCU ity of mcg/mL 00:00: LARLY [place] injection 00 EVERY TWO Medic al WEEKS Branch CYANOCOBALA 2021-09 Yes [id number] INJECT 1ML [facility] MIN 1,000 1-30 INTRAMUSCU ity of mcg/mL 00:00: LARLY [place] injection 00 EVERY TWO Medic al WEEKS Branch CYANOCOBALA 2021-09 Yes [id number] INJECT 1ML [facility] MIN 1,000 1-30 INTRAMUSCU ity of mcg/mL 00:00: LARLY [place] injection 00 EVERY TWO Medic al WEEKS Branch CYANOCOBALA 2021-09 Yes [id number] INJECT 1ML [facility] MIN 1,000 1-30 INTRAMUSCU ity of mcg/mL 00:00: LARLY [place] injection 00 EVERY TWO Medic al WEEKS Branch CYANOCOBALA 2021-09 Yes [id number] INJECT 1ML [facility] MIN 1,000 1-30 INTRAMUSCU ity of mcg/mL 00:00: LARLY [place] injection 00 EVERY TWO Medic al WEEKS Branch CYANOCOBALA 2021-09 Yes [id number] INJECT 1ML [facility] MIN 1,000 1-30 INTRAMUSCU ity of mcg/mL 00:00: LARLY [place] injection 00 EVERY TWO Medic al WEEKS Branch CYANOCOBALA 2021-09 Yes [id number] INJECT 1ML [facility] MIN 1,000 1-30 INTRAMUSCU ity of mcg/mL 00:00: LARLY [place] injection 00 EVERY TWO Medic al WEEKS Branch CYANOCOBALA 2021-09 Yes [id number] INJECT 1ML [facility] MIN 1,000 1-30 INTRAMUSCU ity of mcg/mL 00:00: LARLY [place] injection 00 EVERY TWO Medic al WEEKS Branch CYANOCOBALA 2021-09 Yes [id number] INJECT 1ML [facility] MIN 1,000 1-30 INTRAMUSCU ity of mcg/mL 00:00: LARLY [place] injection 00 EVERY TWO Medic al WEEKS Branch CYANOCOBALA 2021-09 Yes [id number] INJECT 1ML [facility] MIN 1,000 1-30 INTRAMUSCU ity of mcg/mL 00:00: LARLY [place] injection 00 EVERY TWO Medic al WEEKS Branch CYANOCOBALA 2021-09 Yes [id number] INJECT 1ML [facility] MIN 1,000 1-30 INTRAMUSCU ity of mcg/mL 00:00: LARLY [place] injection 00 EVERY TWO Medic al WEEKS Branch CYANOCOBALA 2021-09 Yes [id number] INJECT 1ML [facility] MIN 1,000 1-30 INTRAMUSCU ity of mcg/mL 00:00: LARLY [place] injection 00 EVERY TWO Medic al WEEKS Branch CYANOCOBALA 2021-09 Yes [id number] INJECT 1ML [facility] MIN 1,000 1-30 INTRAMUSCU ity of mcg/mL 00:00: LARLY [place] injection 00 EVERY TWO Medic al WEEKS Branch CYANOCOBALA 2021-09 Yes [id number] INJECT 1ML [facility] MIN 1,000 1-30 INTRAMUSCU ity of mcg/mL 00:00: LARLY [place] injection 00 EVERY TWO Medic al WEEKS Branch CYANOCOBALA 2021-09 Yes [id number] INJECT 1ML [facility] MIN 1,000 1-30 INTRAMUSCU ity of mcg/mL 00:00: LARLY [place] injection 00 EVERY TWO Medic al WEEKS Branch CYANOCOBALA 2021-09 Yes [id number] INJECT 1ML [facility] MIN 1,000 1-30 INTRAMUSCU ity of mcg/mL 00:00: LARLY [place] injection 00 EVERY TWO Medic al WEEKS Branch CYANOCOBALA 2021-09 Yes [id number] INJECT 1ML [facility] MIN 1,000 1-30 INTRAMUSCU ity of mcg/mL 00:00: LARLY [place] injection 00 EVERY TWO Medic al WEEKS Branch CYANOCOBALA 2021-09 Yes [id number] INJECT 1ML [facility] MIN 1,000 1-30 INTRAMUSCU ity of mcg/mL 00:00: LARLY [place] injection 00 EVERY TWO Medic al WEEKS Branch CYANOCOBALA 2021-09 Yes [id number] INJECT 1ML [facility] MIN 1,000 1-30 INTRAMUSCU ity of mcg/mL 00:00: LARLY [place] injection 00 EVERY TWO Medic al WEEKS Branch CYANOCOBALA 2021-09- No [id number] INJECT 1ML [facility] MIN 1,000 1-30 02-07 INTRAMUSCU ity of mcg/mL 00:00: 00:00 LARLY [place] injection 00 :00 EVERY TWO Medic al WEEKS Branch CYANOCOBALA 2021-09- No [id number] INJECT 1ML [facility] MIN 1,000 1-30 02-07 INTRAMUSCU ity of mcg/mL 00:00: 00:00 LARLY [place] injection 00 :00 EVERY TWO Medic al WEEKS Branch CYANOCOBALA 2021-09- No [id number] INJECT 1ML [facility] MIN 1,000 1-30 02-07 INTRAMUSCU ity of mcg/mL 00:00: 00:00 LARLY [place] injection 00 :00 EVERY TWO Medic al WEEKS Branch CYANOCOBALA 2021-09- No [id number] INJECT 1ML [facility] MIN 1,000 1-30 02-07 INTRAMUSCU ity of mcg/mL 00:00: 00:00 LARLY [place] injection 00 :00 EVERY TWO Medic al WEEKS Branch CYANOCOBALA 2021-09- No [id number] INJECT 1ML [facility] MIN 1,000 1-30 02-07 INTRAMUSCU ity of mcg/mL 00:00: 00:00 LARLY [place] injection 00 :00 EVERY TWO Medic al WEEKS Branch CYANOCOBALA 2021-09- No [id number] INJECT 1ML [facility] MIN 1,000 1-30 02-07 INTRAMUSCU ity of mcg/mL 00:00: 00:00 LARLY [place] injection 00 :00 EVERY TWO Medic al WEEKS Branch CYANOCOBALA 2021-09- No [id number] INJECT 1ML [facility] MIN 1,000 1-30 02-07 INTRAMUSCU ity of mcg/mL 00:00: 00:00 LARLY [place] injection 00 :00 EVERY TWO Medic al WEEKS Branch CYANOCOBALA 2021-09- No [id number] INJECT 1ML [facility] MIN 1,000 1-30 02-07 INTRAMUSCU ity of mcg/mL 00:00: 00:00 LARLY [place] injection 00 :00 EVERY TWO Medic al WEEKS Branch CYANOCOBALA 2021-09- No [id number] INJECT 1ML [facility] MIN 1,000 1-30 02-07 INTRAMUSCU ity of mcg/mL 00:00: 00:00 LARLY [place] injection 00 :00 EVERY TWO Medic al WEEKS Branch CYANOCOBALA 2021-09- No [id number] INJECT 1ML [facility] MIN 1,000 1-30 02-07 INTRAMUSCU ity of mcg/mL 00:00: 00:00 LARLY [place] injection 00 :00 EVERY TWO Medic al WEEKS Branch CYANOCOBALA 2021-09- No [id number] INJECT 1ML [facility] MIN 1,000 1-30 02-07 INTRAMUSCU ity of mcg/mL 00:00: 00:00 LARLY [place] injection 00 :00 EVERY TWO Medic al WEEKS Branch CYANOCOBALA 2021-09- No [id number] INJECT 1ML [facility] MIN 1,000 1-30 02-07 [...] EVERY 12 Medical HOURS Branch NEEDED ondansetron 2021-1 Yes TAKE 1 Univ ers 4 mg [...] 1-22 TABLET BY ity of 00:00: MOUTH [place] 00 EVERY 12 Medical HOURS Branch NEEDED ondansetron 2-1 Yes TAKE 1 Univ ers 4 mg tablet 1-22 TABLET BY ity of 00:00: MOUTH [place] 00 EVERY 12 Medical HOURS Branch NEEDED ondansetron 2-1 Yes TAKE 1 Univ ers 4 mg tablet 1-22 TABLET BY ity of 00:00: MOUTH [place] 00 EVERY 12 Medical HOURS Branch NEEDED ondansetron 2-1 Yes TAKE 1 Univ ers 4 mg tablet 1-22 TABLET BY ity of 00:00: MOUTH [place] 00 EVERY 12 Medical HOURS Branch NEEDED ondansetron 2-1 Yes TAKE 1 Univ ers 4 mg tablet 1-22 TABLET BY ity of 00:00: MOUTH [place] 00 EVERY 12 Medical HOURS Branch NEEDED ondansetron 2-1 Yes TAKE 1 Univ ers 4 mg tablet 1-22 TABLET BY ity of 00:00: MOUTH [place] 00 EVERY 12 Medical HOURS Branch NEEDED naproxen 2021- Yes 500mg Take 500 Univ ers 500 mg 1-18 mg by ity of tablet 00:00: mouth in [place] 00 the Medical morning Branch and 500 mg in the evening. Take with meals. naproxen 2-1 Yes 500mg Take 500 [facility] ers 500 mg 1-18 mg by ity of tablet 00:00: mouth in [place] 00 the Medical morning Branch and 500 mg in the evening. Take with meals. naproxen 2-1 Yes 500mg Take 500 [facility] ers 500 mg 1-18 mg by ity of tablet 00:00: mouth in [place] 00 the Medical morning Branch and 500 mg in the evening. Take with meals. naproxen 2-1 Yes 500mg Take 500 [facility] ers 500 mg 1-18 mg by ity of tablet 00:00: mouth in [place] 00 the Medical morning Branch and 500 mg in the evening. Take with meals. naproxen 2-1 Yes 500mg Take 500 [facility] ers 500 mg 1-18 mg by ity of tablet 00:00: mouth in [place] 00 the Medical morning Branch and 500 mg in the evening. Take with meals. naproxen 2-1 Yes 500mg Take 500 [facility] ers 500 mg 1-18 mg by ity of tablet 00:00: mouth in [place] 00 the Medical morning Branch and 500 [...] evening. Take with meals. levothyroxi 2021-09 Yes [id number] 50ug Take 1 [facility] ne 50 mcg 1-03 tablet by ity o f tablet 00:00: mouth [place] 00 every Medical morning. Branch levothyroxi 2021-09 Yes [id number] 50ug Take 1 [facility] ne 50 mcg 1-03 tablet by ity o f tablet 00:00: mouth [place] 00 every Medical morning. Branch levothyroxi 2021-09 Yes [id number] 50ug Take 1 [facility] ne 50 mcg 1-03 tablet by ity o f tablet 00:00: mouth [place] 00 every Medical morning. Branch levothyroxi 2021-09 Yes [id number] 50ug Take 1 [facility] ne 50 mcg 1-03 tablet by ity o f tablet 00:00: mouth [place] 00 every Medical morning. Branch levothyroxi 2021-09 Yes [id number] 50ug Take 1 [facility] ne 50 mcg 1-03 tablet by ity o f tablet 00:00: mouth [place] 00 every Medical morning. Branch levothyroxi 2021-09 Yes [id number] 50ug Take 1 [facility] ne 50 mcg 1-03 tablet by ity o f tablet 00:00: mouth [place] 00 every Medical morning. Branch levothyroxi 2021-09 Yes [id number] 50ug Take 1 [facility] ne 50 mcg 1-03 tablet by ity o f tablet 00:00: mouth [place] 00 every Medical morning. Branch levothyroxi 2021-09 Yes [id number] 50ug Take 1 [facility] ne 50 mcg 1-03 tablet by ity o f tablet 00:00: mouth [place] 00 every Medical morning. Branch levothyroxi 2021-09 Yes [id number] 50ug Take 1 [facility] ne 50 mcg 1-03 tablet by ity o f tablet 00:00: mouth [place] 00 every Medical morning. Branch levothyroxi 2021-09 Yes [id number] 50ug Take 1 [facility] ne 50 mcg 1-03 tablet by ity o f tablet 00:00: mouth [place] 00 every Medical morning. Branch levothyroxi 2021-09 Yes [id number] 50ug Take 1 [facility] ne 50 mcg 1-03 tablet by ity o f tablet 00:00: mouth [place] 00 every Medical morning. Branch levothyroxi 2021-09 Yes [id number] 50ug Take 1 [facility] ne 50 mcg 1-03 tablet by ity o f tablet 00:00: mouth [place] 00 every Medical morning. Branch levothyroxi 2021-09 Yes [id number] 50ug Take 1 [facility] ne 50 mcg 1-03 tablet by ity o f tablet 00:00: mouth [place] 00 every Medical morning. Branch levothyroxi 2021-09 Yes [id number] 50ug Take 1 [facility] ne 50 mcg 1-03 tablet by ity o f tablet 00:00: mouth [place] 00 every Medical morning. Branch levothyroxi 2021-09 Yes [id number] 50ug Take 1 [facility] ne 50 mcg 1-03 tablet by ity o f tablet 00:00: mouth [place] 00 every Medical morning. Branch levothyroxi 2021-09 Yes [id number] 50ug Take 1 [facility] ne 50 mcg 1-03 tablet by ity o f tablet 00:00: mouth [place] 00 every Medical morning. Branch levothyroxi 2021-09 Yes [id number] 50ug Take 1 [facility] ne 50 mcg 1-03 tablet by ity o f tablet 00:00: mouth [place] 00 every Medical morning. Branch levothyroxi 2021-09 Yes [id number] 50ug Take 1 [facility] ne 50 mcg 1-03 tablet by ity o f tablet 00:00: mouth [place] 00 every Medical morning. Branch levothyroxi 2021-09 Yes [id number] 50ug Take 1 [facility] ne 50 mcg 1-03 tablet by ity o f tablet 00:00: mouth [place] 00 every Medical morning. Branch levothyroxi 2021-09 Yes [id number] 50ug Take 1 [facility] ne 50 mcg 1-03 tablet by ity o f tablet 00:00: mouth [place] 00 every Medical morning. Branch levothyroxi 2021-09 Yes [id number] 50ug Take 1 [facility] ne 50 mcg 1-03 tablet by ity o f tablet 00:00: mouth [place] 00 every Medical morning. Branch levothyroxi 2021-09 Yes [id number] 50ug Take 1 [facility] ne 50 mcg 1-03 tablet by ity o f tablet 00:00: mouth [place] 00 every Medical morning. Branch levothyroxi 2021-09 Yes [id number] 50ug Take 1 [facility] ne 50 mcg 1-03 tablet by ity o f tablet 00:00: mouth [place] 00 every Medical morning. Branch levothyroxi 2021-09 Yes [id number] 50ug Take 1 [facility] ne 50 mcg 1-03 tablet by ity o f tablet 00:00: mouth [place] 00 every Medical morning. Branch levothyroxi 2021-09 Yes [id number] 50ug Take 1 [facility] ne 50 mcg 1-03 tablet by ity o f tablet 00:00: mouth [place] 00 every Medical morning. Branch levothyroxi 2021-09 Yes [id number] 50ug Take 1 [facility] ne 50 mcg 1-03 tablet by ity o f tablet 00:00: mouth [place] 00 every Medical morning. Branch levothyroxi 2021-09 Yes [id number] 50ug Take 1 [facility] ne 50 mcg 1-03 tablet by ity o f tablet 00:00: mouth [place] 00 every Medical morning. Branch levothyroxi 2021-09 Yes [id number] 50ug Take 1 [facility] ne 50 mcg 1-03 tablet by ity o f tablet 00:00: mouth [place] 00 every Medical morning. Branch levothyroxi 2021-09 Yes [id number] 50ug Take 1 [facility] ne 50 mcg 1-03 tablet by ity o f tablet 00:00: mouth [place] 00 every Medical morning. Branch levothyroxi 2021-09 Yes [id number] 50ug Take 1 [facility] ne 50 mcg 1-03 tablet by ity o f tablet 00:00: mouth [place] 00 every Medical morning. Branch levothyroxi 2021-09 Yes [id number] 50ug Take 1 [facility] ne 50 mcg 1-03 tablet by ity o f tablet 00:00: mouth [place] 00 every Medical morning. Branch levothyroxi 2021-09 Yes [id number] 50ug Take 1 [facility] ne 50 mcg 1-03 tablet by ity o f tablet 00:00: mouth [place] 00 every Medical morning. Branch levothyroxi 2021-09 Yes [id number] 50ug Take 1 [facility] ne 50 mcg 1-03 tablet by ity o f tablet 00:00: mouth [place] 00 every Medical morning. Branch levothyroxi 2021-09 Yes [id number] 50ug Take 1 [facility] ne 50 mcg 1-03 tablet by ity o f tablet 00:00: mouth [place] 00 every Medical morning. Branch levothyroxi 2021-09 Yes [id number] 50ug Take 1 [facility] ne 50 mcg 1-03 tablet by ity o f tablet 00:00: mouth [place] 00 every Medical morning. Branch levothyroxi 2021-09 Yes [id number] 50ug Take 1 [facility] ne 50 mcg 1-03 tablet by ity o f tablet 00:00: mouth [place] 00 every Medical morning. Branch levothyroxi 2021-09 Yes [id number] 50ug Take 1 [facility] ne 50 mcg 1-03 tablet by ity o f tablet 00:00: mouth [place] 00 every Medical morning. Branch levothyroxi 2021-09 Yes [id number] 50ug Take 1 [facility] ne 50 mcg 1-03 tablet by ity o f tablet 00:00: mouth [place] 00 every Medical morning. Branch levothyroxi 2021-09 Yes [id number] 50ug Take 1 [facility] ne 50 mcg 1-03 tablet by ity o f tablet 00:00: mouth [place] 00 every Medical morning. Branch levothyroxi 2021-09 Yes [id number] 50ug Take 1 [facility] ne 50 mcg 1-03 tablet by ity o f tablet 00:00: mouth [place] 00 every Medical morning. Branch levothyroxi 2021-09 Yes [id number] 50ug Take 1 [facility] ne 50 mcg 1-03 tablet by ity o f tablet 00:00: mouth [place] 00 every Medical morning. Branch levothyroxi 2021-09 Yes [id number] 50ug Take 1 [facility] ne 50 mcg 1-03 tablet by ity o f tablet 00:00: mouth [place] 00 every Medical morning. Branch levothyroxi 2021-09 Yes [id number] 50ug Take 1 [facility] ne 50 mcg 1-03 tablet by ity o f tablet 00:00: mouth [place] 00 every Medical morning. Branch levothyroxi 2021-09 Yes [id number] 50ug Take 1 [facility] ne 50 mcg 1-03 tablet by ity o f tablet 00:00: mouth [place] 00 every Medical morning. Branch levothyroxi 2021-09 Yes [id number] 50ug Take 1 [facility] ne 50 mcg 1-03 tablet by ity o f tablet 00:00: mouth [place] 00 every Medical morning. Branch levothyroxi 2021-09 Yes [id number] 50ug Take 1 [facility] ne 50 mcg 1-03 tablet by ity o f tablet 00:00: mouth [place] 00 every Medical morning. Branch levothyroxi 2021-09 Yes [id number] 50ug Take 1 [facility] ne 50 mcg 1-03 tablet by ity o f tablet 00:00: mouth [place] 00 every Medical morning. Branch levothyroxi 2021-09 Yes [id number] 50ug Take 1 [facility] ne 50 mcg 1-03 tablet by ity o f tablet 00:00: mouth [place] 00 every Medical morning. Branch levothyroxi 2021-09 Yes [id number] 50ug Take 1 [facility] ne 50 mcg 1-03 tablet by ity o f tablet 00:00: mouth [place] 00 every Medical morning. Branch levothyroxi 2021-09 Yes [id number] 50ug Take 1 [facility] ne 50 mcg 1-03 tablet by ity o f tablet 00:00: mouth [place] 00 every Medical morning. Branch levothyroxi 2021-09 Yes [id number] 50ug Take 1 [facility] ne 50 mcg 1-03 tablet by ity o f tablet 00:00: mouth [place] 00 every Medical morning. Branch levothyroxi 2021-09 Yes [id number] 50ug Take 1 [facility] ne 50 mcg 1-03 tablet by ity o f tablet 00:00: mouth [place] 00 every Medical morning. Branch levothyroxi 2021-09 Yes [id number] 50ug Take 1 [facility] ne 50 mcg 1-03 tablet by ity o f tablet 00:00: mouth [place] 00 every Medical morning. Branch levothyroxi 2021-09 Yes [id number] 50ug Take 1 [facility] ne 50 mcg 1-03 tablet by ity o f tablet 00:00: mouth 00 every Medical morning. Branch levothyroxi 2021-09 Yes [id number] 50ug Take 1 [facility] ne 50 mcg [...] Medical Branch DOCUSATE 2021-09 Yes Take by Unive rs SODIUM 1-01 mouth. ity of (COLACE 08:06: [...] ORAL) 37 Medical Branch diltiazem 2021-09 Yes [id number] 120mg Take 1 U nivers 120 mg 24 1-01 capsule by ity of hr capsule 00:00: mouth in [place] 00 the Medical morning Branch and 1 capsule in the evening. fluticasone 2021-09 Yes [id number] 2{puff} Inhale 2 [facility] propionate 1-01 Puffs ity of (FLOVENT 00:00: every 12 [place] HFA) 110 00 (twelve) Medical mcg/actuati hours. Branch on inhaler Rinse mouth after each use. levothyroxi 2021-09 Yes [id number] 50ug Take 1 [facility] ne 50 mcg 1-01 tablet by ity o f tablet 00:00: mouth [place] 00 every Medical morning. Branch metformin 2021-09 Yes [id number] 500mg Take 1 U nivers ER 500 mg 1-01 tablet by ity o f 24 hr 00:00: mouth [place] tablet 00 daily with Medical breakfast. Branch pantoprazol 2021-09 Yes [id number] 40mg Take 1 [facility] e 40 mg EC 1-01 tablet by ity of tablet 00:00: mouth in [place] 00 the Medical morning. Branch pregabalin 2021-09 Yes [id number] 150mg Take 1 [facility] 150 mg 1-01 capsule by ity of capsule 00:00: mouth in [place] 00 the Medical morning Branch and 1 capsule at noon and 1 capsule in the evening. rosuvastati 2021-09 Yes [id number] 10mg Take 1 [facility] n 10 mg 1-01 tablet by ity of tablet 00:00: mouth at [place] 00 bedtime. Medical Branch SUMAtriptan 2021-09 Yes [id number] 50mg Take 1 [facility] 50 mg 1-01 tablet by ity of tablet 00:00: mouth as [place] 00 needed for Medical Migraine. Branch diltiazem 2021-09 Yes [id number] 120mg Take 1 U nivers 120 mg 24 1-01 capsule by ity of hr capsule 00:00: mouth in [place] 00 the Medical morning Branch and 1 capsule in the evening. fluticasone 2021-09 Yes [id number] 2{puff} Inhale 2 [facility] propionate 1-01 Puffs ity of (FLOVENT 00:00: every 12 [place] HFA) 110 00 (twelve) Medical mcg/actuati hours. Branch on inhaler Rinse mouth after each use. levothyroxi 2021-09 Yes [id number] 50ug Take 1 [facility] ne 50 mcg 1-01 tablet by ity o f tablet 00:00: mouth [place] 00 every Medical morning. Branch metformin 2021-09 Yes [id number] 500mg Take 1 U nivers ER 500 mg 1-01 tablet by ity o f 24 hr 00:00: mouth [place] tablet 00 daily with Medical breakfast. Branch pantoprazol 2021-09 Yes [id number] 40mg Take 1 [facility] e 40 mg EC 1-01 tablet by ity of tablet 00:00: mouth in [place] 00 the Medical morning. Branch pregabalin 2021-09 Yes [id number] 150mg Take 1 [facility] 150 mg 1-01 capsule by ity of capsule 00:00: mouth in [place] 00 the Medical morning Branch and 1 capsule at noon and 1 capsule in the evening. rosuvastati 2021-09 Yes [id number] 10mg Take 1 [facility] n 10 mg 1-01 tablet by ity of tablet 00:00: mouth at [place] [address] bedtime. Medical Branch SUMAtriptan 2021-09 Yes [id number] 50mg Take 1 [facility] 50 mg 1-01 tablet by ity of tablet 00:00: mouth as [place] 00 needed for Medical Migraine. Branch diltiazem 2021-09 Yes [id number] 120mg Take 1 [facility] nivers 120 mg 24 1-01 capsule by ity of hr capsule 00:00: mouth in [place] 00 the Medical morning Branch and 1 capsule in the evening. fluticasone 2021-09 Yes [id number] 2{puff} Inhale 2 [facility] propionate 1-01 Puffs ity of (FLOVENT 00:00: every 12 [place] [facility]FA) 110 00 (twelve) Medical mcg/actuati hours. Branch on inhaler Rinse mouth after each use. metformin 2021-09 Yes [id number] 500mg Take 1 U nivers ER 500 mg 1-01 tablet by ity o f 24 hr 00:00: mouth [place] tablet 00 daily with Medical breakfast. Branch pantoprazol 2021-09 Yes [id number] 40mg Take 1 [facility] e 40 mg EC 1-01 tablet by ity of tablet 00:00: mouth in [place] 00 the Medical morning. Branch pregabalin 2021-09 Yes [id number] 150mg Take 1 [facility] 150 mg 1-01 capsule by ity of capsule 00:00: mouth in [place] 00 the Medical morning Branch and 1 capsule at noon and 1 capsule in the evening. rosuvastati 2021-09 Yes [id number] 10mg Take 1 [facility] n 10 mg 1-01 tablet by ity of tablet 00:00: mouth at [place] 00 bedtime. Medical Branch SUMAtriptan 2021-09 Yes [id number] 50mg Take 1 [facility] 50 mg 1-01 tablet by ity of tablet 00:00: mouth as [place] 00 needed for Medical Migraine. Branch diltiazem 2021-09 Yes [id number] 120mg Take 1 [facility] nivers 120 mg 24 1-01 capsule by ity of hr capsule 00:00: mouth in [facility] as 00 the Medical morning Branch and 1 capsule in the evening. fluticasone 2021-09 Yes [id number] 2{puff} Inhale 2 [facility] propionate 1-01 Puffs ity of (FLOVENT 00:00: every 12 [place] HFA) 110 00 (twelve) Medical mcg/actuati hours. Branch on inhaler Rinse mouth after each use. metformin 2021-09 Yes [id number] 500mg Take 1 U nivers ER 500 mg 1-01 tablet by ity o f 24 hr 00:00: mouth [place] tablet 00 daily with Medical breakfast. Branch pantoprazol 2021-09 Yes [id number] 40mg Take 1 [facility] e 40 mg EC 1-01 tablet by ity of tablet 00:00: mouth in [place] 00 the Medical morning. Branch pregabalin 2021-09 Yes [id number] 150mg Take 1 [facility] 150 mg 1-01 capsule by ity of capsule 00:00: mouth in [place] 00 the Medical morning Branch and 1 capsule at noon and 1 capsule in the evening. rosuvastati 2021-09 Yes [id number] 10mg Take 1 [facility] n 10 mg 1-01 tablet by ity of tablet 00:00: mouth at [place] [address] bedtime. Medical Branch SUMAtriptan 2021-09 Yes [id number] 50mg Take 1 [facility] 50 mg 1-01 tablet by ity of tablet 00:00: mouth as [place] 00 needed for Medical Migraine. Branch diltiazem 2021-09 Yes [id number] 120mg Take 1 [facility] nivers 120 mg 24 1-01 capsule by ity of hr capsule 00:00: mouth in [facility] as 00 the Medical morning Branch and 1 capsule in the evening. fluticasone 2021-09 Yes [id number] 2{puff} Inhale 2 [facility] propionate 1-01 Puffs ity of (FLOVENT 00:00: every 12 [place] HFA) 110 00 (twelve) Medical mcg/actuati hours. Branch on inhaler Rinse mouth after each use. metformin 2021-09 Yes [id number] 500mg Take 1 [facility] nivers ER 500 mg 1-01 tablet by ity o f 24 hr 00:00: mouth [place] tablet 00 daily with Medical breakfast. Branch pantoprazol 2021-09 Yes [id number] 40mg Take 1 [facility] e 40 mg EC 1-01 tablet by ity of tablet 00:00: mouth in [place] 00 the Medical morning. Branch pregabalin 2021-09 Yes [id number] 150mg Take 1 [facility] 150 mg 1-01 capsule by ity of capsule 00:00: mouth in [place] 00 the Medical morning Branch and 1 capsule at noon and 1 capsule in the evening. rosuvastati 2021-09 Yes [id number] 10mg Take 1 [facility] n 10 mg 1-01 tablet by ity of tablet 00:00: mouth at [place] 00 bedtime. Medical Branch SUMAtriptan 2021-09 Yes [id number] 50mg Take 1 [facility] 50 mg 1-01 tablet by ity of tablet 00:00: mouth as [place] 00 needed for Medical Migraine. Branch diltiazem 2021-09 Yes [id number] 120mg Take 1 [facility] nivers 120 mg 24 1-01 capsule by ity of hr capsule 00:00: mouth in [facility] as 00 the Medical morning Branch and 1 capsule in the evening. fluticasone 2021-09 Yes [id number] 2{puff} Inhale 2 [facility] propionate 1-01 Puffs ity of (FLOVENT 00:00: every 12 [place] HFA) 110 00 (twelve) Medical mcg/actuati hours. Branch on inhaler Rinse mouth after each use. metformin 2021-09 Yes [id number] 500mg Take 1 [facility] nivers ER 500 mg 1-01 tablet by ity o f 24 hr 00:00: mouth [place] tablet 00 daily with Medical breakfast. Branch pantoprazol 2021-09 Yes [id number] 40mg Take 1 [facility] e 40 mg EC 1-01 tablet by ity of tablet 00:00: mouth in [place] 00 the Medical morning. Branch pregabalin 2021-09 Yes [id number] 150mg Take 1 [facility] 150 mg 1-01 capsule by ity of capsule 00:00: mouth in [place] 00 the Medical morning Branch and 1 capsule at noon and 1 capsule in the evening. rosuvastati 2021-09 Yes [id number] 10mg Take 1 [facility] n 10 mg 1-01 tablet by ity of tablet 00:00: mouth at [place] 00 bedtime. Medical Branch SUMAtriptan 2021-09 Yes [id number] 50mg Take 1 [facility] 50 mg 1-01 tablet by ity of tablet 00:00: mouth as [place] 00 needed for Medical Migraine. Branch diltiazem 2021-09 Yes [id number] 120mg Take 1 [facility] nivers 120 mg 24 1-01 capsule by ity of hr capsule 00:00: mouth in [place] as 00 the Medical morning Branch and 1 capsule in the evening. fluticasone 2021-09 Yes [id number] 2{puff} Inhale 2 [facility] propionate 1-01 Puffs ity of (FLOVENT 00:00: every 12 [place] HFA) 110 00 (twelve) Medical mcg/actuati hours. Branch on inhaler Rinse mouth after each use. metformin 2021-09 Yes [id number] 500mg Take 1 [facility] nivers ER 500 mg 1-01 tablet by ity o f 24 hr 00:00: mouth [place] tablet 00 daily with Medical breakfast. Branch pantoprazol 2021-09 Yes [id number] 40mg Take 1 [facility] e 40 mg EC 1-01 tablet by ity of tablet 00:00: mouth in [place] 00 the Medical morning. Branch pregabalin 2021-09 Yes [id number] 150mg Take 1 [facility] 150 mg 1-01 capsule by ity of capsule 00:00: mouth in [place] 00 the Medical morning Branch and 1 capsule at noon and 1 capsule in the evening. rosuvastati 2021-09 Yes [id number] 10mg Take 1 [facility] n 10 mg 1-01 tablet by ity of tablet 00:00: mouth at [place] [address] bedtime. Medical Branch SUMAtriptan 2021-09 Yes [id number] 50mg Take 1 [facility] 50 mg 1-01 tablet by ity of tablet 00:00: mouth as [place] 00 needed for Medical Migraine. Branch diltiazem 2021-09 Yes [id number] 120mg Take 1 [facility] nivers 120 mg 24 1-01 capsule by ity of hr capsule 00:00: mouth in [place] as 00 the Medical morning Branch and 1 capsule in the evening. fluticasone 2021-09 Yes [id number] 2{puff} Inhale 2 [facility] propionate 1-01 Puffs ity of (FLOVENT 00:00: every 12 [place] HFA) 110 00 (twelve) Medical mcg/actuati hours. Branch on inhaler Rinse mouth after each use. metformin 2021-09 Yes [id number] 500mg Take 1 [facility] nivers ER 500 mg 1-01 tablet by ity o f 24 hr 00:00: mouth [place] tablet 00 daily with Medical breakfast. Branch pantoprazol 2021-09 Yes [id number] 40mg Take 1 [facility] e 40 mg EC 1-01 tablet by ity of tablet 00:00: mouth in [place] 00 the Medical morning. Branch pregabalin 2021-09 Yes [id number] 150mg Take 1 [facility] 150 mg 1-01 capsule by ity of capsule 00:00: mouth in [place] 00 the Medical morning Branch and 1 capsule at noon and 1 capsule in the evening. rosuvastati 2021-09 Yes [id number] 10mg Take 1 [facility] n 10 mg 1-01 tablet by ity of tablet 00:00: mouth at [place] 00 bedtime. Medical Branch SUMAtriptan 2021-09 Yes [id number] 50mg Take 1 [facility] 50 mg 1-01 tablet by ity of tablet 00:00: mouth as [place] 00 needed for Medical Migraine. Branch diltiazem 2021-09 Yes [id number] 120mg Take 1 [facility] nivers 120 mg 24 1-01 capsule by ity of hr capsule 00:00: mouth in [facility] as 00 the Medical morning Branch and 1 capsule in the evening. fluticasone 2021-09 Yes [id number] 2{puff} Inhale 2 [facility] propionate 1-01 Puffs ity of (FLOVENT 00:00: every 12 [place] HFA) 110 00 (twelve) Medical mcg/actuati hours. Branch on inhaler Rinse mouth after each use. metformin 2021-09 Yes [id number] 500mg Take 1 [facility] nivers ER 500 mg 1-01 tablet by ity o f 24 hr 00:00: mouth [place] tablet 00 daily with Medical breakfast. Branch pantoprazol 2021-09 Yes [id number] 40mg Take 1 [facility] e 40 mg EC 1-01 tablet by ity of tablet 00:00: mouth in [place] 00 the Medical morning. Branch pregabalin 2021-09 Yes [id number] 150mg Take 1 [facility] 150 mg 1-01 capsule by ity of capsule 00:00: mouth in [place] 00 the Medical morning Branch and 1 capsule at noon and 1 capsule in the evening. rosuvastati 2021-09 Yes [id number] 10mg Take 1 [facility] n 10 mg 1-01 tablet by ity of tablet 00:00: mouth at [place] 00 bedtime. Medical Branch SUMAtriptan 2021-09 Yes [id number] 50mg Take 1 [facility] 50 mg 1-01 tablet by ity of tablet 00:00: mouth as [place] 00 needed for Medical Migraine. Branch diltiazem 2021-09 Yes [id number] 120mg Take 1 [facility] nivers 120 mg 24 1-01 capsule by ity of hr capsule 00:00: mouth in [facility] as 00 the Medical morning Branch and 1 capsule in the evening. fluticasone 2021-09 Yes [id number] 2{puff} Inhale 2 [facility] propionate 1-01 Puffs ity of (FLOVENT 00:00: every 12 [place] HFA) 110 00 (twelve) Medical mcg/actuati hours. Branch on inhaler Rinse mouth after each use. metformin 2021-09 Yes [id number] 500mg Take 1 U nivers ER 500 mg 1-01 tablet by ity o f 24 hr 00:00: mouth [place] tablet 00 daily with Medical breakfast. Branch pantoprazol 2021-09 Yes [id number] 40mg Take 1 [facility] e 40 mg EC 1-01 tablet by ity of tablet 00:00: mouth in [place] 00 the Medical morning. Branch pregabalin 2021-09 Yes [id number] 150mg Take 1 [facility] 150 mg 1-01 capsule by ity of capsule 00:00: mouth in [place] 00 the Medical morning Branch and 1 capsule at noon and 1 capsule in the evening. rosuvastati 2021-09 Yes [id number] 10mg Take 1 [facility] n 10 mg 1-01 tablet by ity of tablet 00:00: mouth at [place] [address] bedtime. Medical Branch SUMAtriptan 2021-09 Yes [id number] 50mg Take 1 [facility] 50 mg 1-01 tablet by ity of tablet 00:00: mouth as [place] 00 needed for Medical Migraine. Branch diltiazem 2021-09 Yes [id number] 120mg Take 1 U nivers 120 mg 24 1-01 capsule by ity of hr capsule 00:00: mouth in [place] as 00 the Medical morning Branch and 1 capsule in the evening. fluticasone 2021-09 Yes [id number] 2{puff} Inhale 2 [facility] propionate 1-01 Puffs ity of (FLOVENT 00:00: every 12 [facility]) 110 00 (twelve) Medical mcg/actuati hours. Branch on inhaler Rinse mouth after each use. metformin 2021-09 Yes [id number] 500mg Take 1 U nivers ER 500 mg 1-01 tablet by ity o f 24 hr 00:00: mouth [place] tablet 00 daily with Medical breakfast. Branch pantoprazol 2021-09 Yes [id number] 40mg Take 1 [facility] e 40 mg EC 1-01 tablet by ity of tablet 00:00: mouth in [place] 00 the Medical morning. Branch pregabalin 2021-09 Yes [id number] 150mg Take 1 [facility] 150 mg 1-01 capsule by ity of capsule 00:00: mouth in [place] 00 the Medical morning Branch and 1 capsule at noon and 1 capsule in the evening. rosuvastati 2021-09 Yes [id number] 10mg Take 1 [facility] n 10 mg 1-01 tablet by ity of tablet 00:00: mouth at [place] 00 bedtime. Medical Branch SUMAtriptan 2021-09 Yes [id number] 50mg Take 1 [facility] 50 mg 1-01 tablet by ity of tablet 00:00: mouth as [place] 00 needed for Medical Migraine. Branch diltiazem 2021-09 Yes [id number] 120mg Take 1 U nivers 120 mg 24 1-01 capsule by ity of hr capsule 00:00: mouth in [place] as 00 the Medical morning Branch and 1 capsule in the evening. fluticasone 2021-09 Yes [id number] 2{puff} Inhale 2 [facility] propionate 1-01 Puffs ity of (FLOVENT 00:00: every 12 [place] HFA) 110 00 (twelve) Medical mcg/actuati hours. Branch on inhaler Rinse mouth after each use. metformin 2021-09 Yes [id number] 500mg Take 1 U nivers ER 500 mg 1-01 tablet by ity o f 24 hr 00:00: mouth [place] tablet 00 daily with Medical breakfast. Branch pantoprazol 2021-09 Yes [id number] 40mg Take 1 [facility] e 40 mg EC 1-01 tablet by ity of tablet 00:00: mouth in [place] 00 the Medical morning. Branch pregabalin 2021-09 Yes [id number] 150mg Take 1 [facility] 150 mg 1-01 capsule by ity of capsule 00:00: mouth in [place] 00 the Medical morning Branch and 1 capsule at noon and 1 capsule in the evening. rosuvastati 2021-09 Yes [id number] 10mg Take 1 [facility] n 10 mg 1-01 tablet by ity of tablet 00:00: mouth at [place] [address] bedtime. Medical Branch SUMAtriptan 2021-09 Yes [id number] 50mg Take 1 [facility] 50 mg 1-01 tablet by ity of tablet 00:00: mouth as [place] 00 needed for Medical Migraine. Branch diltiazem 2021-09 Yes [id number] 120mg Take 1 [facility] nivers 120 mg 24 1-01 capsule by ity of hr capsule 00:00: mouth in [place] as 00 the Medical morning Branch and 1 capsule in the evening. fluticasone 2021-09 Yes [id number] 2{puff} Inhale 2 [facility] propionate 1-01 Puffs ity of (FLOVENT 00:00: every 12 [place] HFA) 110 00 (twelve) Medical mcg/actuati hours. Branch on inhaler Rinse mouth after each use. metformin 2021-09 Yes [id number] 500mg Take 1 U nivers ER 500 mg 1-01 tablet by ity o f 24 hr 00:00: mouth [place] tablet 00 daily with Medical breakfast. Branch pantoprazol 2021-09 Yes [id number] 40mg Take 1 [facility] e 40 mg EC 1-01 tablet by ity of tablet 00:00: mouth in [place] 00 the Medical morning. Branch pregabalin 2021-09 Yes [id number] 150mg Take 1 [facility] 150 mg 1-01 capsule by ity of capsule 00:00: mouth in [place] 00 the Medical morning Branch and 1 capsule at noon and 1 capsule in the evening. rosuvastati 2021-09 Yes [id number] 10mg Take 1 [facility] n 10 mg 1-01 tablet by ity of tablet 00:00: mouth at [place] 00 bedtime. Medical Branch SUMAtriptan 2021-09 Yes [id number] 50mg Take 1 [facility] 50 mg 1-01 tablet by ity of tablet 00:00: mouth as [place] 00 needed for Medical Migraine. Branch diltiazem 2021-09 Yes [id number] 120mg Take 1 U nivers 120 mg 24 1-01 capsule by ity of hr capsule 00:00: mouth in [place] as 00 the Medical morning Branch and 1 capsule in the evening. fluticasone 2021-09 Yes [id number] 2{puff} Inhale 2 [facility] propionate 1-01 Puffs ity of (FLOVENT 00:00: every 12 [place] HFA) 110 00 (twelve) Medical mcg/actuati hours. Branch on inhaler Rinse mouth after each use. metformin 2021-09 Yes [id number] 500mg Take 1 U nivers ER 500 mg 1-01 tablet by ity o f 24 hr 00:00: mouth [place] tablet 00 daily with Medical breakfast. Branch pantoprazol 2021-09 Yes [id number] 40mg Take 1 [facility] e 40 mg EC 1-01 tablet by ity of tablet 00:00: mouth in [place] 00 the Medical morning. Branch rosuvastati 2021-09 Yes [id number] 10mg Take 1 [facility] n 10 mg 1-01 tablet by ity of tablet 00:00: mouth at [place] [address] bedtime. Medical Branch SUMAtriptan 2021-09 Yes [id number] 50mg Take 1 [facility] 50 mg 1-01 tablet by ity of tablet 00:00: mouth as [place] 00 needed for Medical Migraine. Branch diltiazem 2021-09 Yes [id number] 120mg Take 1 U nivers 120 mg 24 1-01 capsule by ity of hr capsule 00:00: mouth in [place] as 00 the Medical morning Branch and 1 capsule in the evening. fluticasone 2021-09 Yes [id number] 2{puff} Inhale 2 [facility] propionate 1-01 Puffs ity of (FLOVENT 00:00: every 12 [place] HFA) 110 00 (twelve) Medical mcg/actuati hours. Branch on inhaler Rinse mouth after each use. metformin 2021-09 Yes [id number] 500mg Take 1 U nivers ER 500 mg 1-01 tablet by ity o f 24 hr 00:00: mouth [place] tablet 00 daily with Medical breakfast. Branch pantoprazol 2021-09 Yes [id number] 40mg Take 1 [facility] e 40 mg EC 1-01 tablet by ity of tablet 00:00: mouth in [place] 00 the Medical morning. Branch rosuvastati 2021-09 Yes [id number] 10mg Take 1 [facility] n 10 mg 1-01 tablet by ity of tablet 00:00: mouth at [place] [address] bedtime. Medical Branch SUMAtriptan 2021-09 Yes [id number] 50mg Take 1 [facility] 50 mg 1-01 tablet by ity of tablet 00:00: mouth as [place] 00 needed for Medical Migraine. Branch diltiazem 2021-09 Yes [id number] 120mg Take 1 U nivers 120 mg 24 1-01 capsule by ity of hr capsule 00:00: mouth in [place] as 00 the Medical morning Branch and 1 capsule in the evening. fluticasone 2021-09 Yes [id number] 2{puff} Inhale 2 [facility] propionate 1-01 Puffs ity of (FLOVENT 00:00: every 12 [place] HFA) 110 00 (twelve) Medical mcg/actuati hours. Branch on inhaler Rinse mouth after each use. metformin 2021-09 Yes [id number] 500mg Take 1 U nivers ER 500 mg 1-01 tablet by ity o f 24 hr 00:00: mouth [place] tablet 00 daily with Medical breakfast. Branch pantoprazol 2021-09 Yes [id number] 40mg Take 1 [facility] e 40 mg EC 1-01 tablet by ity of tablet 00:00: mouth in [place] 00 the Medical morning. Branch rosuvastati 2021-09 Yes [id number] 10mg Take 1 [facility] n 10 mg 1-01 tablet by ity of tablet 00:00: mouth at [place] [address] bedtime. Medical Branch SUMAtriptan 2021-09 Yes [id number] 50mg Take 1 [facility] 50 mg 1-01 tablet by ity of tablet 00:00: mouth as [place] 00 needed for Medical Migraine. Branch diltiazem 2021-09 Yes [id number] 120mg Take 1 U nivers 120 mg 24 1-01 capsule by ity of hr capsule 00:00: mouth in [place] as 00 the Medical morning Branch and 1 capsule in the evening. fluticasone 2021-09 Yes [id number] 2{puff} Inhale 2 [facility] propionate 1-01 Puffs ity of (FLOVENT 00:00: every 12 [place] HFA) 110 00 (twelve) Medical mcg/actuati hours. Branch on inhaler Rinse mouth after each use. metformin 2021-09 Yes [id number] 500mg Take 1 U nivers ER 500 mg 1-01 tablet by ity o f 24 hr 00:00: mouth [place] tablet 00 daily with Medical breakfast. Branch pantoprazol 2021-09 Yes [id number] 40mg Take 1 [facility] e 40 mg EC 1-01 tablet by ity of tablet 00:00: mouth in [place] 00 the Medical morning. Branch rosuvastati 2021-09 Yes [id number] 10mg Take 1 [facility] n 10 mg 1-01 tablet by ity of tablet 00:00: mouth at [place] 00 bedtime. Medical Branch SUMAtriptan 2021-09 Yes [id number] 50mg Take 1 [facility] 50 mg 1-01 tablet by ity of tablet 00:00: mouth as [place] 00 needed for Medical Migraine. Branch diltiazem 2021-09 Yes [id number] 120mg Take 1 U nivers 120 mg 24 1-01 capsule by ity of hr capsule 00:00: mouth in [place] as 00 the Medical morning Branch and 1 capsule in the evening. fluticasone 2021-09 Yes [id number] 2{puff} Inhale 2 [facility] propionate 1-01 Puffs ity of (FLOVENT 00:00: every 12 [place] HFA) 110 00 (twelve) Medical mcg/actuati hours. Branch on inhaler Rinse mouth after each use. metformin 2021-09 Yes [id number] 500mg Take 1 U nivers ER 500 mg 1-01 tablet by ity o f 24 hr 00:00: mouth [place] tablet 00 daily with Medical breakfast. Branch pantoprazol 2021-09 Yes [id number] 40mg Take 1 [facility] e 40 mg EC 1-01 tablet by ity of tablet 00:00: mouth in [place] 00 the Medical morning. Branch rosuvastati 2021-09 Yes [id number] 10mg Take 1 [facility] n 10 mg 1-01 tablet by ity of tablet 00:00: mouth at [place] 00 bedtime. Medical Branch SUMAtriptan 2021-09 Yes [id number] 50mg Take 1 [facility] 50 mg 1-01 tablet by ity of tablet 00:00: mouth as [place] 00 needed for Medical Migraine. Branch diltiazem 2021-09 Yes [id number] 120mg Take 1 U nivers 120 mg 24 1-01 capsule by ity of hr capsule 00:00: mouth in [place] as 00 the Medical morning Branch and 1 capsule in the evening. fluticasone 2021-09 Yes [id number] 2{puff} Inhale 2 [facility] propionate 1-01 Puffs ity of (FLOVENT 00:00: every 12 [place] HFA) 110 00 (twelve) Medical mcg/actuati hours. Branch on inhaler Rinse mouth after each use. metformin 2021-09 Yes [id number] 500mg Take 1 U nivers ER 500 mg 1-01 tablet by ity o f 24 hr 00:00: mouth [place] tablet 00 daily with Medical breakfast. Branch pantoprazol 2021-09 Yes [id number] 40mg Take 1 [facility] e 40 mg EC 1-01 tablet by ity of tablet 00:00: mouth in [place] 00 the Medical morning. Branch rosuvastati 2021-09 Yes [id number] 10mg Take 1 [facility] n 10 mg 1-01 tablet by ity of tablet 00:00: mouth at [place] 00 bedtime. Medical Branch SUMAtriptan 2021-09 Yes [id number] 50mg Take 1 [facility] 50 mg 1-01 tablet by ity of tablet 00:00: mouth as [place] 00 needed for Medical Migraine. Branch diltiazem 2021-09 Yes [id number] 120mg Take 1 U nivers 120 mg 24 1-01 capsule by ity of hr capsule 00:00: mouth in [place] as 00 the Medical morning Branch and 1 capsule in the evening. fluticasone 2021-09 Yes [id number] 2{puff} Inhale 2 [facility] propionate 1-01 Puffs ity of (FLOVENT 00:00: every 12 [place] HFA) 110 00 (twelve) Medical mcg/actuati hours. Branch on inhaler Rinse mouth after each use. metformin 2021-09 Yes [id number] 500mg Take 1 U nivers ER 500 mg 1-01 tablet by ity o f 24 hr 00:00: mouth [place] tablet 00 daily with Medical breakfast. Branch pantoprazol 2021-09 Yes [id number] 40mg Take 1 [facility] e 40 mg EC 1-01 tablet by ity of tablet 00:00: mouth in [place] 00 the Medical morning. Branch rosuvastati 2021-09 Yes [id number] 10mg Take 1 [facility] n 10 mg 1-01 tablet by ity of tablet 00:00: mouth at [place] 00 bedtime. Medical Branch SUMAtriptan 2021-09 Yes [id number] 50mg Take 1 [facility] 50 mg 1-01 tablet by ity of tablet 00:00: mouth as [place] 00 needed for Medical Migraine. Branch diltiazem 2021-09 Yes [id number] 120mg Take 1 U nivers 120 mg 24 1-01 capsule by ity of hr capsule 00:00: mouth in [place] as 00 the Medical morning Branch and 1 capsule in the evening. fluticasone 2021-09 Yes [id number] 2{puff} Inhale 2 [facility] propionate 1-01 Puffs ity of (FLOVENT 00:00: every 12 [place] HFA) 110 00 (twelve) Medical mcg/actuati hours. Branch on inhaler Rinse mouth after each use. metformin 2021-09 Yes [id number] 500mg Take 1 U nivers ER 500 mg 1-01 tablet by ity o f 24 hr 00:00: mouth [place] tablet 00 daily with Medical breakfast. Branch pantoprazol 2021-09 Yes [id number] 40mg Take 1 [facility] e 40 mg EC 1-01 tablet by ity of tablet 00:00: mouth in [place] 00 the Medical morning. Branch rosuvastati 2021-09 Yes [id number] 10mg Take 1 [facility] n 10 mg 1-01 tablet by ity of tablet 00:00: mouth at [place] 00 bedtime. Medical Branch SUMAtriptan 2021-09 Yes [id number] 50mg Take 1 [facility] 50 mg 1-01 tablet by ity of tablet 00:00: mouth as [place] 00 needed for Medical Migraine. Branch diltiazem 2021-09 Yes [id number] 120mg Take 1 U nivers 120 mg 24 1-01 capsule by ity of hr capsule 00:00: mouth in [place] as 00 the Medical morning Branch and 1 capsule in the evening. fluticasone 2021-09 Yes [id number] 2{puff} Inhale 2 [facility] propionate 1-01 Puffs ity of (FLOVENT 00:00: every 12 [place] HFA) 110 00 (twelve) Medical mcg/actuati hours. Branch on inhaler Rinse mouth after each use. metformin 2021-09 Yes [id number] 500mg Take 1 U nivers ER 500 mg 1-01 tablet by ity o f 24 hr 00:00: mouth [place] tablet 00 daily with Medical breakfast. Branch pantoprazol 2021-09 Yes [id number] 40mg Take 1 [facility] e 40 mg EC 1-01 tablet by ity of tablet 00:00: mouth in [place] 00 the Medical morning. Branch rosuvastati 2021-09 Yes [id number] 10mg Take 1 [facility] n 10 mg 1-01 tablet by ity of tablet 00:00: mouth at [place] 00 bedtime. Medical Branch SUMAtriptan 2021-09 Yes [id number] 50mg Take 1 [facility] 50 mg 1-01 tablet by ity of tablet 00:00: mouth as [place] 00 needed for Medical Migraine. Branch diltiazem 2021-09 Yes [id number] 120mg Take 1 [facility] nivers 120 mg 24 1-01 capsule by ity of hr capsule 00:00: mouth in [facility] as 00 the Medical morning Branch and 1 capsule in the evening. fluticasone 2021-09 Yes [id number] 2{puff} Inhale 2 [facility] propionate 1-01 Puffs ity of (FLOVENT 00:00: every 12 [place] HFA) 110 00 (twelve) Medical mcg/actuati hours. Branch on inhaler Rinse mouth after each use. metformin 2021-09 Yes [id number] 500mg Take 1 U nivers ER 500 mg 1-01 tablet by ity o f 24 hr 00:00: mouth [place] tablet 00 daily with Medical breakfast. Branch pantoprazol 2021-09 Yes [id number] 40mg Take 1 [facility] e 40 mg EC 1-01 tablet by ity of tablet 00:00: mouth in [place] 00 the Medical morning. Branch rosuvastati 2021-09 Yes [id number] 10mg Take 1 [facility] n 10 mg 1-01 tablet by ity of tablet 00:00: mouth at [place] 00 bedtime. Medical Branch SUMAtriptan 2021-09 Yes [id number] 50mg Take 1 [facility] 50 mg 1-01 tablet by ity of tablet 00:00: mouth as [place] 00 needed for Medical Migraine. Branch diltiazem 2021-09 Yes [id number] 120mg Take 1 [facility] nivers 120 mg 24 1-01 capsule by ity of hr capsule 00:00: mouth in [place] as 00 the Medical morning Branch and 1 capsule in the evening. fluticasone 2021-09 Yes [id number] 2{puff} Inhale 2 [facility] propionate 1-01 Puffs ity of (FLOVENT 00:00: every 12 [place] HFA) 110 00 (twelve) Medical mcg/actuati hours. Branch on inhaler Rinse mouth after each use. metformin 2021-09 Yes [id number] 500mg Take 1 [facility] nivers ER 500 mg 1-01 tablet by ity o f 24 hr 00:00: mouth [place] tablet 00 daily with Medical breakfast. Branch pantoprazol 2021-09 Yes [id number] 40mg Take 1 [facility] e 40 mg EC 1-01 tablet by ity of tablet 00:00: mouth in [place] 00 the Medical morning. Branch rosuvastati 2021-09 Yes [id number] 10mg Take 1 [facility] n 10 mg 1-01 tablet by ity of tablet 00:00: mouth at [place] 00 bedtime. Medical Branch SUMAtriptan 2021-09 Yes [id number] 50mg Take 1 [facility] 50 mg 1-01 tablet by ity of tablet 00:00: mouth as [place] 00 needed for Medical Migraine. Branch diltiazem 2021-09 Yes [id number] 120mg Take 1 [facility] nivers 120 mg 24 1-01 capsule by ity of hr capsule 00:00: mouth in [place] 00 the Medical morning Branch and 1 capsule in the evening. fluticasone 2021-09 Yes [id number] 2{puff} Inhale 2 [facility] propionate 1-01 Puffs ity of (FLOVENT 00:00: every 12 [place] HFA) 110 00 (twelve) Medical mcg/actuati hours. Branch on inhaler Rinse mouth after each use. metformin 2021-09 Yes [id number] 500mg Take 1 U nivers ER 500 mg 1-01 tablet by ity o f 24 hr 00:00: mouth [place] tablet 00 daily with Medical breakfast. Branch pantoprazol 2021-09 Yes [id number] 40mg Take 1 [facility] e 40 mg EC 1-01 tablet by ity of tablet 00:00: mouth in [place] 00 the Medical morning. Branch rosuvastati 2021-09 Yes [id number] 10mg Take 1 [facility] n 10 mg 1-01 tablet by ity of tablet 00:00: mouth at [place] [address] bedtime. Medical Branch SUMAtriptan 2021-09 Yes [id number] 50mg Take 1 [facility] 50 mg 1-01 tablet by ity of tablet 00:00: mouth as [place] 00 needed for Medical Migraine. Branch diltiazem 2021-09 Yes [id number] 120mg Take 1 [facility] nivers 120 mg 24 1-01 capsule by ity of hr capsule 00:00: mouth in [place] 00 the Medical morning Branch and 1 capsule in the evening. fluticasone 2021-09 Yes [id number] 2{puff} Inhale 2 [facility] propionate 1-01 Puffs ity of (FLOVENT 00:00: every 12 [place] HFA) 110 00 (twelve) Medical mcg/actuati hours. Branch on inhaler Rinse mouth after each use. metformin 2021-09 Yes [id number] 500mg Take 1 [facility] nivers ER 500 mg 1-01 tablet by ity o f 24 hr 00:00: mouth [place] tablet 00 daily with Medical breakfast. Branch pantoprazol 2021-09 Yes [id number] 40mg Take 1 [facility] e 40 mg EC 1-01 tablet by ity of tablet 00:00: mouth in [place] 00 the Medical morning. Branch rosuvastati 2021-09 Yes [id number] 10mg Take 1 [facility] n 10 mg 1-01 tablet by ity of tablet 00:00: mouth at [place] 00 bedtime. Medical Branch SUMAtriptan 2021-09 Yes [id number] 50mg Take 1 [facility] 50 mg 1-01 tablet by ity of tablet 00:00: mouth as [place] 00 needed for Medical Migraine. Branch diltiazem 2021-09 Yes [id number] 120mg Take 1 [facility] nivers 120 mg 24 1-01 capsule by ity of hr capsule 00:00: mouth in [place] 00 the Medical morning Branch and 1 capsule in the evening. fluticasone 2021-09 Yes [id number] 2{puff} Inhale 2 [facility] propionate 1-01 Puffs ity of (FLOVENT 00:00: every 12 [place] HFA) 110 00 (twelve) Medical mcg/actuati hours. Branch on inhaler Rinse mouth after each use. rosuvastati 2021-09 Yes [id number] 10mg Take 1 [facility] n 10 mg 1-01 tablet by ity of tablet 00:00: mouth at [place] 00 bedtime. Medical Branch diltiazem 2021-09 Yes [id number] 120mg Take 1 [facility] nivers 120 mg 24 1-01 capsule by ity of hr capsule 00:00: mouth in [place] 00 the Medical morning Branch and 1 capsule in the evening. fluticasone 2021-09 Yes [id number] 2{puff} Inhale 2 [facility] propionate 1-01 Puffs ity of (FLOVENT 00:00: every 12 [place] HFA) 110 00 (twelve) Medical mcg/actuati hours. Branch on inhaler Rinse mouth after each use. rosuvastati 2021-09 Yes [id number] 10mg Take 1 [facility] n 10 mg 1-01 tablet by ity of tablet 00:00: mouth at [place] 00 bedtime. Medical Branch diltiazem 2021-09 Yes [id number] 120mg Take 1 [facility] nivers 120 mg 24 1-01 capsule by ity of hr capsule 00:00: mouth in [place] 00 the Medical morning Branch and 1 capsule in the evening. fluticasone 2021-09 Yes [id number] 2{puff} Inhale 2 [facility] propionate 1-01 Puffs ity of (FLOVENT 00:00: every 12 [place] HFA) 110 00 (twelve) Medical mcg/actuati hours. Branch on inhaler Rinse mouth after each use. rosuvastati 2021-09 Yes [id number] 10mg Take 1 [facility] n 10 mg 1-01 tablet by ity of tablet 00:00: mouth at [place] 00 bedtime. Medical Branch diltiazem 2021-09 Yes [id number] 120mg Take 1 [facility] nivers 120 mg 24 1-01 capsule by ity of hr capsule 00:00: mouth in [place] 00 the Medical morning Branch and 1 capsule in the evening. fluticasone 2021-09 Yes [id number] 2{puff} Inhale 2 [facility] propionate 1-01 Puffs ity of (FLOVENT 00:00: every 12 [place] HFA) 110 00 (twelve) Medical mcg/actuati hours. Branch on inhaler Rinse mouth after each use. rosuvastati 2021-09 Yes [id number] 10mg Take 1 [facility] n 10 mg 1-01 tablet by ity of tablet 00:00: mouth at [place] 00 bedtime. Medical Branch diltiazem 2021-09 Yes [id number] 120mg Take 1 [facility] nivers 120 mg 24 1-01 capsule by ity of hr capsule 00:00: mouth in [place] 00 the Medical morning Branch and 1 capsule in the evening. fluticasone 2021-09 Yes [id number] 2{puff} Inhale 2 [facility] propionate 1-01 Puffs ity of (FLOVENT 00:00: every 12 [place] HFA) 110 00 (twelve) Medical mcg/actuati hours. Branch on inhaler Rinse mouth after each use. rosuvastati 2021-09 Yes [id number] 10mg Take 1 [facility] n 10 mg 1-01 tablet by ity of tablet 00:00: mouth at [place] 00 bedtime. Medical Branch diltiazem 2021-09 Yes [id number] 120mg Take 1 [facility] nivers 120 mg 24 1-01 capsule by ity of hr capsule 00:00: mouth in [place] 00 the Medical morning Branch and 1 capsule in the evening. fluticasone 2021-09 Yes [id number] 2{puff} Inhale 2 [facility] propionate 1-01 Puffs ity of (FLOVENT 00:00: every 12 [place] HFA) 110 00 (twelve) Medical mcg/actuati hours. Branch on inhaler Rinse mouth after each use. rosuvastati 2021-09 Yes [id number] 10mg Take 1 [facility] n 10 mg 1-01 tablet by ity of tablet 00:00: mouth at [place] 00 bedtime. Medical Branch diltiazem 2021-09 Yes [id number] 120mg Take 1 [facility] nivers 120 mg 24 1-01 capsule by ity of hr capsule 00:00: mouth in [place] 00 the Medical morning Branch and 1 capsule in the evening. fluticasone 2021-09 Yes [id number] 2{puff} Inhale 2 [facility] propionate 1-01 Puffs ity of (FLOVENT 00:00: every 12 [place] HFA) 110 00 (twelve) Medical mcg/actuati hours. Branch on inhaler Rinse mouth after each use. rosuvastati 2021-09 Yes [id number] 10mg Take 1 [facility] n 10 mg 1-01 tablet by ity of tablet 00:00: mouth at [place] 00 bedtime. Medical Branch diltiazem 2021-09 Yes [id number] 120mg Take 1 [facility] nivers 120 mg 24 1-01 capsule by ity of hr capsule 00:00: mouth in [place] 00 the Medical morning Branch and 1 capsule in the evening. fluticasone 2021-09 Yes [id number] 2{puff} Inhale 2 [facility] propionate 1-01 Puffs ity of (FLOVENT 00:00: every 12 [place] HFA) 110 00 (twelve) Medical mcg/actuati hours. Branch on inhaler Rinse mouth after each use. rosuvastati 2021-09 Yes [id number] 10mg Take 1 [facility] n 10 mg 1-01 tablet by ity of tablet 00:00: mouth at [place] 00 bedtime. Medical Branch diltiazem 2021-09 Yes [id number] 120mg Take 1 [facility] nivers 120 mg 24 1-01 capsule by ity of hr capsule 00:00: mouth in [place] 00 the Medical morning Branch and 1 capsule in the evening. fluticasone 2021-09 Yes [id number] 2{puff} Inhale 2 [facility] propionate 1-01 Puffs ity of (FLOVENT 00:00: every 12 [place] HFA) 110 00 (twelve) Medical mcg/actuati hours. Branch on inhaler Rinse mouth after each use. rosuvastati 2021-09 Yes [id number] 10mg Take 1 [facility] n 10 mg 1-01 tablet by ity of tablet 00:00: mouth at [place] 00 bedtime. Medical Branch diltiazem 2021-09 Yes [id number] 120mg Take 1 [facility] nivers 120 mg 24 1-01 capsule by ity of hr capsule 00:00: mouth in [place] 00 the Medical morning Branch and 1 capsule in the evening. fluticasone 2021-09 Yes [id number] 2{puff} Inhale 2 [facility] propionate 1-01 Puffs ity of (FLOVENT 00:00: every 12 [place] HFA) 110 00 (twelve) Medical mcg/actuati hours. Branch on inhaler Rinse mouth after each use. rosuvastati 2021-09 Yes [id number] 10mg Take 1 [facility] n 10 mg 1-01 tablet by ity of tablet 00:00: mouth at [place] 00 bedtime. Medical Branch diltiazem 2021-09 Yes [id number] 120mg Take 1 [facility] nivers 120 mg 24 1-01 capsule by ity of hr capsule 00:00: mouth in [place] 00 the Medical morning Branch and 1 capsule in the evening. fluticasone 2021-09 Yes [id number] 2{puff} Inhale 2 [facility] propionate 1-01 Puffs ity of (FLOVENT 00:00: every 12 [place] HFA) 110 00 (twelve) Medical mcg/actuati hours. Branch on inhaler Rinse mouth after each use. rosuvastati 2021-09 Yes [id number] 10mg Take 1 [facility] n 10 mg 1-01 tablet by ity of tablet 00:00: mouth at [place] 00 bedtime. Medical Branch diltiazem 2021-09 Yes [id number] 120mg Take 1 [facility] nivers 120 mg 24 1-01 capsule by ity of hr capsule 00:00: mouth in [place] 00 the Medical morning Branch and 1 capsule in the evening. fluticasone 2021-09 Yes [id number] 2{puff} Inhale 2 [facility] propionate 1-01 Puffs ity of (FLOVENT 00:00: every 12 [place] HFA) 110 00 (twelve) Medical mcg/actuati hours. Branch on inhaler Rinse mouth after each use. rosuvastati 2021-09 Yes [id number] 10mg Take 1 [facility] n 10 mg 1-01 tablet by ity of tablet 00:00: mouth at [place] 00 bedtime. Medical Branch diltiazem 2021-09 Yes [id number] 120mg Take 1 [facility] nivers 120 mg 24 1-01 capsule by ity of hr capsule 00:00: mouth in [place] 00 the Medical morning Branch and 1 capsule in the evening. fluticasone 2021-09 Yes [id number] 2{puff} Inhale 2 [facility] propionate 1-01 Puffs ity of (FLOVENT 00:00: every 12 [place] HFA) 110 00 (twelve) Medical mcg/actuati hours. Branch on inhaler Rinse mouth after each use. rosuvastati 2021-09 Yes [id number] 10mg Take 1 [facility] n 10 mg 1-01 tablet by ity of tablet 00:00: mouth at [place] 00 bedtime. Medical Branch diltiazem 2021-09 Yes [id number] 120mg Take 1 [facility] nivers 120 mg 24 1-01 capsule by ity of hr capsule 00:00: mouth in [place] 00 the Medical morning Branch and 1 capsule in the evening. fluticasone 2021-09 Yes [id number] 2{puff} Inhale 2 [facility] propionate 1-01 Puffs ity of (FLOVENT 00:00: every 12 [place] HFA) 110 00 (twelve) Medical mcg/actuati hours. Branch on inhaler Rinse mouth after each use. rosuvastati 2021-09 Yes [id number] 10mg Take 1 [facility] n 10 mg 1-01 tablet by ity of tablet 00:00: mouth at [place] 00 bedtime. Medical Branch diltiazem 2021-09 Yes [id number] 120mg Take 1 [facility] nivers 120 mg 24 1-01 capsule by ity of hr capsule 00:00: mouth in [place] 00 the Medical morning Branch and 1 capsule in the evening. fluticasone 2021-09 Yes [id number] 2{puff} Inhale 2 [facility] propionate 1-01 Puffs ity of (FLOVENT 00:00: every 12 [place] HFA) 110 00 (twelve) Medical mcg/actuati hours. Branch on inhaler Rinse mouth after each use. rosuvastati 2021-09 Yes [id number] 10mg Take 1 [facility] n 10 mg 1-01 tablet by ity of tablet 00:00: mouth at [place] 00 bedtime. Medical Branch diltiazem 2021-09 Yes [id number] 120mg Take 1 [facility] nivers 120 mg 24 1-01 capsule by ity of hr capsule 00:00: mouth in [place] 00 the Medical morning Branch and 1 capsule in the evening. fluticasone 2021-09 Yes [id number] 2{puff} Inhale 2 [facility] propionate 1-01 Puffs ity of (FLOVENT 00:00: every 12 [place] HFA) 110 00 (twelve) Medical mcg/actuati hours. Branch on inhaler Rinse mouth after each use. rosuvastati 2021-09 Yes [id number] 10mg Take 1 [facility] n 10 mg 1-01 tablet by ity of tablet 00:00: mouth at [place] 00 bedtime. Medical Branch diltiazem 2021-09 Yes [id number] 120mg Take 1 [facility] nivers 120 mg 24 1-01 capsule by ity of hr capsule 00:00: mouth in [place] 00 the Medical morning Branch and 1 capsule in the evening. fluticasone 2021-09 Yes [id number] 2{puff} Inhale 2 [facility] propionate 1-01 Puffs ity of (FLOVENT 00:00: every 12 [place] HFA) 110 00 (twelve) Medical mcg/actuati hours. Branch on inhaler Rinse mouth after each use. rosuvastati 2021-09 Yes [id number] 10mg Take 1 [facility] n 10 mg 1-01 tablet by ity of tablet 00:00: mouth at [place] 00 bedtime. Medical Branch diltiazem 2021-09 Yes [id number] 120mg Take 1 [facility] nivers 120 mg 24 1-01 capsule by ity of hr capsule 00:00: mouth in [place] 00 the Medical morning Branch and 1 capsule in the evening. fluticasone 2021-09 Yes [id number] 2{puff} Inhale 2 [facility] propionate 1-01 Puffs ity of (FLOVENT 00:00: every 12 [place] HFA) 110 00 (twelve) Medical mcg/actuati hours. Branch on inhaler Rinse mouth after each use. rosuvastati 2021-09 Yes [id number] 10mg Take 1 [facility] n 10 mg 1-01 tablet by ity of tablet 00:00: mouth at [place] 00 bedtime. Medical Branch diltiazem 2021-09 Yes [id number] 120mg Take 1 [facility] nivers 120 mg 24 1-01 capsule by ity of hr capsule 00:00: mouth in [place] 00 the Medical morning Branch and 1 capsule in the evening. fluticasone 2021-09 Yes [id number] 2{puff} Inhale 2 [facility] propionate 1-01 Puffs ity of (FLOVENT 00:00: every 12 [place] HFA) 110 00 (twelve) Medical mcg/actuati hours. Branch on inhaler Rinse mouth after each use. rosuvastati 2021-09 Yes [id number] 10mg Take 1 [facility] n 10 mg 1-01 tablet by ity of tablet 00:00: mouth at [place] 00 bedtime. Medical Branch diltiazem 2021-09 Yes [id number] 120mg Take 1 [facility] nivers 120 mg 24 1-01 capsule by ity of hr capsule 00:00: mouth in [place] 00 the Medical morning Branch and 1 capsule in the evening. fluticasone 2021-09 Yes [id number] 2{puff} Inhale 2 [facility] propionate 1-01 Puffs ity of (FLOVENT 00:00: every 12 [place] HFA) 110 00 (twelve) Medical mcg/actuati hours. Branch on inhaler Rinse mouth after each use. rosuvastati 2021-09 Yes [id number] 10mg Take 1 [facility] n 10 mg 1-01 tablet by ity of tablet 00:00: mouth at [place] 00 bedtime. Medical Branch diltiazem 2021-09 Yes [id number] 120mg Take 1 [facility] nivers 120 mg 24 1-01 capsule by ity of hr capsule 00:00: mouth in [place] 00 the Medical morning Branch and 1 capsule in the evening. fluticasone 2021-09 Yes [id number] 2{puff} Inhale 2 [facility] propionate 1-01 Puffs ity of (FLOVENT 00:00: every 12 [place] HFA) 110 00 (twelve) Medical mcg/actuati hours. Branch on inhaler Rinse mouth after each use. rosuvastati 2021-09 Yes [id number] 10mg Take 1 [facility] n 10 mg 1-01 tablet by ity of tablet 00:00: mouth at [place] 00 bedtime. Medical Branch diltiazem 2021-09 Yes [id number] 120mg Take 1 [facility] nivers 120 mg 24 1-01 capsule by ity of hr capsule 00:00: mouth in [place] 00 the Medical morning Branch and 1 capsule in the evening. fluticasone 2021-09 Yes [id number] 2{puff} Inhale 2 [facility] propionate 1-01 Puffs ity of (FLOVENT 00:00: every 12 [place] HFA) 110 00 (twelve) Medical mcg/actuati hours. Branch on inhaler Rinse mouth after each use. rosuvastati 2021-09 Yes [id number] 10mg Take 1 [facility] n 10 mg 1-01 tablet by ity of tablet 00:00: mouth at [place] 00 bedtime. Medical Branch diltiazem 2021-09 Yes [id number] 120mg Take 1 [facility] nivers 120 mg 24 1-01 capsule by ity of hr capsule 00:00: mouth in [place] 00 the Medical morning Branch and 1 capsule in the evening. fluticasone 2021-09 Yes [id number] 2{puff} Inhale 2 [facility] propionate 1-01 Puffs ity of (FLOVENT 00:00: every 12 [place] HFA) 110 00 (twelve) Medical mcg/actuati hours. Branch on inhaler Rinse mouth after each use. rosuvastati 2021-09 Yes [id number] 10mg Take 1 [facility] n 10 mg 1-01 tablet by ity of tablet 00:00: mouth at [place] 00 bedtime. Medical Branch diltiazem 2021-09 Yes [id number] 120mg Take 1 [facility] nivers 120 mg 24 1-01 capsule by ity of hr capsule 00:00: mouth in [place] 00 the Medical morning Branch and 1 capsule in the evening. fluticasone 2021-09 Yes [id number] 2{puff} Inhale 2 [facility] propionate 1-01 Puffs ity of (FLOVENT 00:00: every 12 [place] HFA) 110 00 (twelve) Medical mcg/actuati hours. Branch on inhaler Rinse mouth after each use. rosuvastati 2021-09 Yes [id number] 10mg Take 1 [facility] n 10 mg 1-01 tablet by ity of tablet 00:00: mouth at [place] 00 bedtime. Medical Branch diltiazem 2021-09 Yes [id number] 120mg Take 1 [facility] nivers 120 mg 24 1-01 capsule by ity of hr capsule 00:00: mouth in [place] 00 the Medical morning Branch and 1 capsule in the evening. fluticasone 2021-09 Yes [id number] 2{puff} Inhale 2 [facility] propionate 1-01 Puffs ity of (FLOVENT 00:00: every 12 [place] HFA) 110 00 (twelve) Medical mcg/actuati hours. Branch on inhaler Rinse mouth after each use. rosuvastati 2021-09 Yes [id number] 10mg Take 1 [facility] n 10 mg 1-01 tablet by ity of tablet 00:00: mouth at [place] 00 bedtime. Medical Branch diltiazem 2021-09 Yes [id number] 120mg Take 1 [facility] nivers 120 mg 24 1-01 capsule by ity of hr capsule 00:00: mouth in [place] 00 the Medical morning Branch and 1 capsule in the evening. fluticasone 2021-09 Yes [id number] 2{puff} Inhale 2 [facility] propionate 1-01 Puffs ity of (FLOVENT 00:00: every 12 [place] HFA) 110 00 (twelve) Medical mcg/actuati hours. Branch on inhaler Rinse mouth after each use. rosuvastati 2021-09 Yes [id number] 10mg Take 1 [facility] n 10 mg 1-01 tablet by ity of tablet 00:00: mouth at [place] 00 bedtime. Medical Branch diltiazem 2021-09 Yes [id number] 120mg Take 1 [facility] nivers 120 mg 24 1-01 capsule by ity of hr capsule 00:00: mouth in [place] 00 the Medical morning Branch and 1 capsule in the evening. fluticasone 2021-09 Yes [id number] 2{puff} Inhale 2 [facility] propionate 1-01 Puffs ity of (FLOVENT 00:00: every 12 [place] HFA) 110 00 (twelve) Medical mcg/actuati hours. Branch on inhaler Rinse mouth after each use. rosuvastati 2021-09 Yes [id number] 10mg Take 1 [facility] n 10 mg 1-01 tablet by ity of tablet 00:00: mouth at [place] 00 bedtime. Medical Branch diltiazem 2021-09 Yes [id number] 120mg Take 1 [facility] nivers 120 mg 24 1-01 capsule by ity of hr capsule 00:00: mouth in [place] 00 the Medical morning Branch and 1 capsule in the evening. fluticasone 2021-09 Yes [id number] 2{puff} Inhale 2 [facility] propionate 1-01 Puffs ity of (FLOVENT 00:00: every 12 [place] HFA) 110 00 (twelve) Medical mcg/actuati hours. Branch on inhaler Rinse mouth after each use. rosuvastati 2021-09 Yes [id number] 10mg Take 1 [facility] n 10 mg 1-01 tablet by ity of tablet 00:00: mouth at [place] 00 bedtime. Medical Branch diltiazem 2021-09 Yes [id number] 120mg Take 1 [facility] nivers 120 mg 24 1-01 capsule by ity of hr capsule 00:00: mouth in [place] 00 the Medical morning Branch and 1 capsule in the evening. fluticasone 2021-09 Yes [id number] 2{puff} Inhale 2 [facility] propionate 1-01 Puffs ity of (FLOVENT 00:00: every 12 [place] HFA) 110 00 (twelve) Medical mcg/actuati hours. Branch on inhaler Rinse mouth after each use. rosuvastati 2021-09 Yes [id number] 10mg Take 1 [facility] n 10 mg 1-01 tablet by ity of tablet 00:00: mouth at [place] 00 bedtime. Medical Branch diltiazem 2021-09 Yes [id number] 120mg Take 1 [facility] nivers 120 mg 24 1-01 capsule by ity of hr capsule 00:00: mouth in [place] 00 the Medical morning Branch and 1 capsule in the evening. fluticasone 2021-09 Yes [id number] 2{puff} Inhale 2 [facility] propionate 1-01 Puffs ity of (FLOVENT 00:00: every 12 [place] HFA) 110 00 (twelve) Medical mcg/actuati hours. Branch on inhaler Rinse mouth after each use. rosuvastati 2021-09 Yes [id number] 10mg Take 1 [facility] n 10 mg 1-01 tablet by ity of tablet 00:00: mouth at [place] 00 bedtime. Medical Branch diltiazem 2021-09 Yes [id number] 120mg Take 1 [facility] nivers 120 mg 24 - capsule by ity of hr capsule 00:00: mouth in [place] 00 the Medical morning Branch and 1 capsule in the evening. fluticasone 2021-09 Yes [id number] 2{puff} Inhale 2 [facility] propionate 1-01 Puffs ity of (FLOVENT 00:00: every 12 [facility]) 110 00 (twelve) Medical mcg/actuati hours. Branch on inhaler Rinse mouth after each use. rosuvastati 2021-09 Yes [id number] 10mg Take 1 [facility] n 10 mg 1-01 tablet by ity of tablet 00:00: mouth at [place] [address] bedtime. Medical Branch metformin 2021-09- No [id number] 500mg Take 1 [facility] ER 500 mg 09-26 tablet by ity of 24 hr 00:00: 00:00 mouth [place] tablet 00 :00 daily with Medical breakfast. Branch pantoprazol 2021-09- No [id number] 40mg Take 1 [facility] e 40 mg EC 09-26 tablet by ity of tablet 00:00: 00:00 mouth in [place] 00 :00 the Medical morning. Branch SUMAtriptan 2021-09- No [id number] 50mg Take 1 [facility] 50 mg 09-26 tablet by ity of tablet 00:00: 00:00 mouth as [place] 00 :00 needed for Medical Migraine. Branch metformin 2021-09- No [id number] 500mg Take 1 [facility] ER 500 mg 09-26 tablet by ity of 24 hr 00:00: 00:00 mouth [place] tablet 00 :00 daily with Medical breakfast. Branch pantoprazol 2021-09- No [id number] 40mg Take 1 [facility] e 40 mg EC 09-26 tablet by ity of tablet 00:00: 00:00 mouth in [place] 00 :00 the Medical morning. Branch SUMAtriptan 2021-09- No [id number] 50mg Take 1 [facility] 50 mg 09-26 tablet by ity of tablet 00:00: 00:00 mouth as [place] 00 :00 needed for Medical Migraine. Branch metformin 2021-09- No [id number] 500mg Take 1 [facility] ER 500 mg 09-26 tablet by ity of 24 hr 00:00: 00:00 mouth [place] tablet 00 :00 daily with Medical breakfast. Branch pantoprazol 2021-09- No [id number] 40mg Take 1 [facility] e 40 mg EC 09-26 tablet by ity of tablet 00:00: 00:00 mouth in [place] 00 :00 the Medical morning. Branch SUMAtriptan 2021-09- No [id number] 50mg Take 1 [facility] 50 mg 09-26 tablet by ity of tablet 00:00: 00:00 mouth as [place] 00 :00 needed for Medical Migraine. [place] pregabalin 2021-09- No [id number] 150mg Take 1 [facility] 150 mg 09-26 capsule by ity of capsule 00:00: 00:00 mouth in [place] 00 :00 the Medical morning Branch and 1 capsule at noon and 1 capsule in the evening. levothyroxi 2021-09- No [id number] 50ug Take 1 [facility] ne 50 mcg 09-26 tablet by ity of tablet 00:00: 00:00 mouth [place] 00 :00 every Medical morning. Branch levothyroxi 2021-09- No [id number] 50ug Take 1 [facility] ne 50 mcg 09-26 tablet by ity of tablet 00:00: 00:00 mouth [place] 00 :00 every Medical morning. Branch busPIRone 2021-09 Yes [id number] 20mg Take 2 [facility] [place] 10 mg 0-13 tablets by ity of tablet 00:00: mouth in [place] 00 the Medical morning Branch and 2 tablets in the evening. diltiazem 2021-09 Yes [id number] 120mg Take 1 [facility] nivers 120 mg 24 0-13 capsule by ity of hr capsule 00:00: mouth in [place] 00 the Medical morning Branch and 1 capsule in the evening. levothyroxi 2021-09 Yes [id number] 50ug Take 1 [facility] ne 50 mcg 0-13 tablet by ity o f tablet 00:00: mouth [place] 00 every Medical morning. Branch losartan 50 2021-09 Yes [id number] 50mg Take 1 [facility] mg tablet 0-13 tablet by ity o f 00:00: mouth in [place] 00 the Medical morning Branch and 1 tablet in the evening. metformin 2021-09 Yes [id number] 500mg Take 1 U nivers ER 500 mg 0-13 tablet by ity o f 24 hr 00:00: mouth [place] tablet 00 daily with Medical breakfast. Branch STOP REGULAR METFORMIN. mirabegron 2021-09 Yes [id number] 50mg Take 1 [facility] (MYRBETRIQ) 0-13 tablet by ity of 50 mg 00:00: mouth in [place] tablet 00 the Medical morning. Branch semaglutide 2021-09 Yes [id number] Inject [facility] (OZEMPIC) 0-13 0.25 mg ity of 0.25 mg or 00:00: under the [place] 0.5 mg(2 00 skin Medical mg/1.5 mL) weekly. Branch PnIj pantoprazol 2021-09 Yes [id number] 40mg Take 1 [facility] e 40 mg EC 0-13 tablet by ity of tablet 00:00: mouth in [place] 00 the Medical morning. Branch pregabalin 2021-09 Yes [id number] 150mg Take 1 [facility] 150 mg 0-13 capsule by ity of capsule 00:00: mouth in [place] 00 the Medical morning Branch and 1 capsule at noon and 1 capsule in the evening. rosuvastati 2021-09 Yes [id number] 10mg Take 1 [facility] n 10 mg 0-13 tablet by ity of tablet 00:00: mouth at [place] 00 bedtime. Medical Branch SUMAtriptan 2021-09 Yes [id number] 50mg Take 1 [facility] 50 mg 0-13 tablet by ity of tablet 00:00: mouth as [place] 00 needed for Medical Migraine. Branch topiramate 2021-09 Yes [id number] 75mg Take 3 [facility] 25 mg 0-13 tablets by ity of tablet 00:00: mouth in [place] 00 the Medical morning Branch and 3 tablets in the evening. busPIRone 2021-09 Yes [id number] 20mg Take 2 [facility] [place] 10 mg 0-13 tablets by ity of tablet 00:00: mouth in [place] 00 the Medical morning Branch and 2 tablets in the evening. losartan 50 2021-09 Yes [id number] 50mg Take 1 [facility] mg tablet 0-13 tablet by ity o f 00:00: mouth in [place] 00 the Medical morning Branch and 1 tablet in the evening. mirabegron 2021-09 Yes [id number] 50mg Take 1 [facility] (MYRBETRIQ) 0-13 tablet by ity of 50 mg 00:00: mouth in [place] tablet 00 the Medical morning. Branch semaglutide 2021-09 Yes [id number] Inject [facility] (OZEMPIC) 0-13 0.25 mg ity of 0.25 mg or 00:00: under the [place] 0.5 mg(2 00 skin Medical mg/1.5 mL) weekly. Branch PnIj topiramate 2021-09 Yes [id number] 75mg Take 3 [facility] 25 mg 0-13 tablets by ity of tablet 00:00: mouth in [place] 00 the Medical morning Branch and 3 tablets in the evening. busPIRone 2021-09 Yes [id number] 20mg Take 2 [facility] [place] 10 mg 0-13 tablets by ity of tablet 00:00: mouth in [place] 00 the Medical morning Branch and 2 tablets in the evening. losartan 50 2021-09 Yes [id number] 50mg Take 1 [facility] mg tablet 0-13 tablet by ity o f 00:00: mouth in [place] 00 the Medical morning Branch and 1 tablet in the evening. mirabegron 2021-09 Yes [id number] 50mg Take 1 [facility] (MYRBETRIQ) 0-13 tablet by [facility] of 50 mg 00:00: mouth in [place] tablet 00 the Medical morning. Branch semaglutide 2021-09 Yes [id number] Inject [facility] (OZEMPIC) 0-13 0.25 mg ity of 0.25 mg or 00:00: under the [place] 0.5 mg(2 00 skin Medical mg/1.5 mL) weekly. Branch PnIj topiramate 2021-09 Yes [id number] 75mg Take 3 [facility] 25 mg 0-13 tablets by [facility] of tablet 00:00: mouth in [place] 00 the Medical morning Branch and 3 tablets in the evening. busPIRone 2021-09 Yes [id number] 20mg Take 2 [facility] [place] 10 mg 0-13 tablets by [facility] of tablet 00:00: mouth in [place] 00 the Medical morning Branch and 2 tablets in the evening. losartan 50 2021-09 Yes [id number] 50mg Take 1 [facility] mg tablet 0-13 tablet by [facility] o f 00:00: mouth in [place] 00 the Medical morning Branch and 1 tablet in the evening. mirabegron 2021-09 Yes [id number] 50mg Take 1 [facility] (MYRBETRIQ) 0-13 tablet by [facility] of 50 mg 00:00: mouth in [place] tablet 00 the Medical morning. Branch semaglutide 2021-09 Yes [id number] Inject [facility] (OZEMPIC) 0-13 0.25 mg ity of 0.25 mg or 00:00: under the [place] 0.5 mg(2 00 skin Medical mg/1.5 mL) weekly. Branch PnIj topiramate 2021-09 Yes [id number] 75mg Take 3 [facility] 25 mg 0-13 tablets by [facility] of tablet 00:00: mouth in [place] 00 the Medical morning Branch and 3 tablets in the evening. busPIRone 2021-09 Yes [id number] 20mg Take 2 [facility] [place] 10 mg 0-13 tablets by [facility] of tablet 00:00: mouth in [place] 00 the Medical morning Branch and 2 tablets in the evening. losartan 50 2021-09 Yes [id number] 50mg Take 1 [facility] mg tablet 0-13 tablet by [facility] o f 00:00: mouth in [place] 00 the Medical morning Branch and 1 tablet in the evening. mirabegron 2021-09 Yes [id number] 50mg Take 1 [facility] (MYRBETRIQ) 0-13 tablet by [facility] of 50 mg 00:00: mouth in [place] tablet 00 the Medical morning. Branch semaglutide 2021-09 Yes [id number] Inject [facility] (OZEMPIC) 0-13 0.25 mg it[facility] of 0.25 mg or 00:00: under the [place] 0.5 mg(2 00 skin Medical mg/1.5 mL) weekly. Branch PnIj topiramate 2021-09 Yes [id number] 75mg Take 3 [facility] 25 mg 0-13 tablets by [facility] of tablet 00:00: mouth in [place] 00 the Medical morning Branch and 3 tablets in the evening. busPIRone 2021-09 Yes [id number] 20mg Take 2 [facility] [place] 10 mg 0-13 tablets by [facility] of tablet 00:00: mouth in [place] 00 the Medical morning Branch and 2 tablets in the evening. losartan 50 2021-09 Yes [id number] 50mg Take 1 [facility] mg tablet 0-13 tablet by [facility] o f 00:00: mouth in [place] 00 the Medical morning Branch and 1 tablet in the evening. mirabegron 2021-09 Yes [id number] 50mg Take 1 [facility] (MYRBETRIQ) 0-13 tablet by [facility] of 50 mg 00:00: mouth in [place] tablet 00 the Medical morning. Branch semaglutide 2021-09 Yes [id number] Inject [facility] (OZEMPIC) 0-13 0.25 mg it[facility] of 0.25 mg or 00:00: under the [place] 0.5 mg(2 00 skin Medical mg/1.5 mL) weekly. Branch PnIj topiramate 2021-09 Yes [id number] 75mg Take 3 [facility] 25 mg 0-13 tablets by [facility] of tablet 00:00: mouth in [place] 00 the Medical morning Branch and 3 tablets in the evening. busPIRone 2021-09 Yes [id number] 20mg Take 2 [facility] [place] 10 mg 0-13 tablets by [facility] of tablet 00:00: mouth in [place] 00 the Medical morning Branch and 2 tablets in the evening. losartan 50 2021-09 Yes [id number] 50mg Take 1 [facility] mg tablet 0-13 tablet by [facility] o f 00:00: mouth in [place] 00 the Medical morning Branch and 1 tablet in the evening. mirabegron 2021-09 Yes [id number] 50mg Take 1 [facility] (MYRBETRIQ) 0-13 tablet by [facility] of 50 mg 00:00: mouth in [place] tablet 00 the Medical morning. Branch semaglutide 2021-09 Yes [id number] Inject [facility] (OZEMPIC) 0-13 0.25 mg ity of 0.25 mg or 00:00: under the [place] 0.5 mg(2 00 skin Medical mg/1.5 mL) weekly. Branch PnIj topiramate 2021-09 Yes [id number] 75mg Take 3 [facility] 25 mg 0-13 tablets by [facility] of tablet 00:00: mouth in [place] 00 the Medical morning Branch and 3 tablets in the evening. busPIRone 2021-09 Yes [id number] 20mg Take 2 [facility] [place] 10 mg 0-13 tablets by [facility] of tablet 00:00: mouth in [place] 00 the Medical morning Branch and 2 tablets in the evening. losartan 50 2021-09 Yes [id number] 50mg Take 1 [facility] mg tablet 0-13 tablet by [facility] o f 00:00: mouth in [place] 00 the Medical morning Branch and 1 tablet in the evening. mirabegron 2021-09 Yes [id number] 50mg Take 1 [facility] (MYRBETRIQ) 0-13 tablet by [facility] of 50 mg 00:00: mouth in [place] tablet 00 the Medical morning. Branch semaglutide 2021-09 Yes [id number] Inject [facility] (OZEMPIC) 0-13 0.25 mg ity of 0.25 mg or 00:00: under the [place] 0.5 mg(2 00 skin Medical mg/1.5 mL) weekly. Branch PnIj topiramate 2021-09 Yes [id number] 75mg Take 3 [facility] 25 mg 0-13 tablets by [facility] of tablet 00:00: mouth in [place] 00 the Medical morning Branch and 3 tablets in the evening. busPIRone 2021-09 Yes [id number] 20mg Take 2 [facility] [place] 10 mg 0-13 tablets by [facility] of tablet 00:00: mouth in [place] 00 the Medical morning Branch and 2 tablets in the evening. losartan 50 2021-09 Yes [id number] 50mg Take 1 [facility] mg tablet 0-13 tablet by [facility] o f 00:00: mouth in [place] 00 the Medical morning Branch and 1 tablet in the evening. mirabegron 2021-09 Yes [id number] 50mg Take 1 [facility] (MYRBETRIQ) 0-13 tablet by [facility] of 50 mg 00:00: mouth in [place] tablet 00 the Medical morning. Branch semaglutide 2021-09 Yes [id number] Inject [facility] (OZEMPIC) 0-13 0.25 mg ity of 0.25 mg or 00:00: under the [place] 0.5 mg(2 00 skin Medical mg/1.5 mL) weekly. Branch PnIj topiramate 2021-09 Yes [id number] 75mg Take 3 [facility] 25 mg 0-13 tablets by [facility] of tablet 00:00: mouth in [place] 00 the Medical morning Branch and 3 tablets in the evening. busPIRone 2021-09 Yes [id number] 20mg Take 2 [facility] [place] 10 mg 0-13 tablets by [facility] of tablet 00:00: mouth in [place] 00 the Medical morning Branch and 2 tablets in the evening. losartan 50 2021-09 Yes [id number] 50mg Take 1 [facility] mg tablet 0-13 tablet by [facility] o f 00:00: mouth in [place] 00 the Medical morning Branch and 1 tablet in the evening. mirabegron 2021-09 Yes [id number] 50mg Take 1 [facility] (MYRBETRIQ) 0-13 tablet by [facility] of 50 mg 00:00: mouth in [place] tablet 00 the Medical morning. Branch semaglutide 2021-09 Yes [id number] Inject [facility] (OZEMPIC) 0-13 0.25 mg ity of 0.25 mg or 00:00: under the [place] 0.5 mg(2 skin Medical mg/1.5 mL) weekly. Branch PnIj topiramate 2021-09 Yes [id number] 75mg Take 3 [facility] 25 mg 0-13 tablets by [facility] of tablet 00:00: mouth in [place] the Medical morning Branch and 3 tablets in the evening. busPIRone 2021-09 Yes [id number] 20mg Take 2 [facility] [place] 10 mg 0-13 tablets by [facility] of tablet 00:00: mouth in [place] 00 the Medical morning Branch and 2 tablets in the evening. losartan 50 2021-09 Yes [id number] 50mg Take 1 [facility] mg tablet 0-13 tablet by [facility] o f 00:00: mouth in [place] 00 the Medical morning Branch and 1 tablet in the evening. mirabegron 2021-09 Yes [id number] 50mg Take 1 [facility] (MYRBETRIQ) 0-13 tablet by [facility] of 50 mg 00:00: mouth in [place] tablet 00 the Medical morning. Branch semaglutide 2021-09 Yes [id number] Inject [facility] (OZEMPIC) 0-13 0.25 mg ity of 0.25 mg or 00:00: under the [place] 0.5 mg(2 00 skin Medical mg/1.5 mL) weekly. Branch PnIj topiramate 2021-09 Yes [id number] 75mg Take 3 [facility] 25 mg 0-13 tablets by [facility] of tablet 00:00: mouth in [place] 00 the Medical morning Branch and 3 tablets in the evening. busPIRone 2021-09 Yes [id number] 20mg Take 2 [facility] [place] 10 mg 0-13 tablets by [facility] of tablet 00:00: mouth in [place] 00 the Medical morning Branch and 2 tablets in the evening. losartan 50 2021-09 Yes [id number] 50mg Take 1 [facility] mg tablet 0-13 tablet by [facility] o f 00:00: mouth in [place] 00 the Medical morning Branch and 1 tablet in the evening. mirabegron 2021-09 Yes [id number] 50mg Take 1 [facility] (MYRBETRIQ) 0-13 tablet by [facility] of 50 mg 00:00: mouth in [place] tablet 00 the Medical morning. Branch semaglutide 2021-09 Yes [id number] Inject [facility] (OZEMPIC) 0-13 0.25 mg ity of 0.25 mg or 00:00: under the [place] 0.5 mg(2 00 skin Medical mg/1.5 mL) weekly. Branch PnIj topiramate 2021-09 Yes [id number] 75mg Take 3 [facility] 25 mg 0-13 tablets by [facility] of tablet 00:00: mouth in [place] 00 the Medical morning Branch and 3 tablets in the evening. busPIRone 2021-09 Yes [id number] 20mg Take 2 [facility] [place] 10 mg 0-13 tablets by [facility] of tablet 00:00: mouth in [place] 00 the Medical morning Branch and 2 tablets in the evening. losartan 50 2021-09 Yes [id number] 50mg Take 1 [facility] mg tablet 0-13 tablet by [facility] o f 00:00: mouth in [place] 00 the Medical morning Branch and 1 tablet in the evening. mirabegron 2021-09 Yes [id number] 50mg Take 1 [facility] (MYRBETRIQ) 0-13 tablet by [facility] of 50 mg 00:00: mouth in [place] tablet 00 the Medical morning. Branch semaglutide 2021-09 Yes [id number] Inject [facility] (OZEMPIC) 0-13 0.25 mg ity of 0.25 mg or 00:00: under the [place] 0.5 mg(2 00 skin Medical mg/1.5 mL) weekly. Branch PnIj topiramate 2021-09 Yes [id number] 75mg Take 3 [facility] 25 mg 0-13 tablets by [facility] of tablet 00:00: mouth in [place] 00 the Medical morning Branch and 3 tablets in the evening. busPIRone 2021-09 Yes [id number] 20mg Take 2 [facility] [place] 10 mg 0-13 tablets by [facility] of tablet 00:00: mouth in [place] 00 the Medical morning Branch and 2 tablets in the evening. losartan 50 2021-09 Yes [id number] 50mg Take 1 [facility] mg tablet 0-13 tablet by it[facility] o f 00:00: mouth in [place] 00 the Medical morning Branch and 1 tablet in the evening. mirabegron 2021-09 Yes [id number] 50mg Take 1 [facility] (MYRBETRIQ) 0-13 tablet by [facility] of 50 mg 00:00: mouth in [place] tablet 00 the Medical morning. Branch semaglutide 2021-09 Yes [id number] Inject [facility] (OZEMPIC) 0-13 0.25 mg ity of 0.25 mg or 00:00: under the [place] 0.5 mg(2 00 skin Medical mg/1.5 mL) weekly. Branch PnIj topiramate 2021-09 Yes [id number] 75mg Take 3 [facility] 25 mg 0-13 tablets by [facility] of tablet 00:00: mouth in [place] 00 the Medical morning Branch and 3 tablets in the evening. busPIRone 2021-09 Yes [id number] 20mg Take 2 [facility] [place] 10 mg 0-13 tablets by [facility] of tablet 00:00: mouth in [place] 00 the Medical morning Branch and 2 tablets in the evening. losartan 50 2021-09 Yes [id number] 50mg Take 1 [facility] mg tablet 0-13 tablet by it[facility] o f 00:00: mouth in [place] 00 the Medical morning Branch and 1 tablet in the evening. mirabegron 2021-09 Yes [id number] 50mg Take 1 [facility] (MYRBETRIQ) 0-13 tablet by [facility] of 50 mg 00:00: mouth in [place] tablet 00 the Medical morning. Branch semaglutide 2021-09 Yes [id number] Inject [facility] (OZEMPIC) 0-13 0.25 mg ity of 0.25 mg or 00:00: under the [place] 0.5 mg(2 00 skin Medical mg/1.5 mL) weekly. Branch PnIj topiramate 2021-09 Yes [id number] 75mg Take 3 [facility] 25 mg 0-13 tablets by [facility] of tablet 00:00: mouth in [place] 00 the Medical morning Branch and 3 tablets in the evening. busPIRone 2021-09 Yes [id number] 20mg Take 2 [facility] [place] 10 mg 0-13 tablets by [facility] of tablet 00:00: mouth in [place] 00 the Medical morning Branch and 2 tablets in the evening. losartan 50 2021-09 Yes [id number] 50mg Take 1 [facility] mg tablet 0-13 tablet by ity o f 00:00: mouth in [place] 00 the Medical morning Branch and 1 tablet in the evening. mirabegron 2021-09 Yes [id number] 50mg Take 1 [facility] (MYRBETRIQ) 0-13 tablet by [facility] of 50 mg 00:00: mouth in [place] tablet 00 the Medical morning. Branch semaglutide 2021-09 Yes [id number] Inject [facility] (OZEMPIC) 0-13 0.25 mg ity of 0.25 mg or 00:00: under the [place] 0.5 mg(2 00 skin Medical mg/1.5 mL) weekly. Branch PnIj topiramate 2021-09 Yes [id number] 75mg Take 3 [facility] 25 mg 0-13 tablets by [facility] of tablet 00:00: mouth in [place] 00 the Medical morning Branch and 3 tablets in the evening. busPIRone 2021-09 Yes [id number] 20mg Take 2 [facility] [place] 10 mg 0-13 tablets by [facility] of tablet 00:00: mouth in [place] 00 the Medical morning Branch and 2 tablets in the evening. losartan 50 2021-09 Yes [id number] 50mg Take 1 [facility] mg tablet 0-13 tablet by ity o f 00:00: mouth in [place] 00 the Medical morning Branch and 1 tablet in the evening. mirabegron 2021-09 Yes [id number] 50mg Take 1 [facility] (MYRBETRIQ) 0-13 tablet by [facility] of 50 mg 00:00: mouth in [place] tablet 00 the Medical morning. Branch semaglutide 2021-09 Yes [id number] Inject [facility] (OZEMPIC) 0-13 0.25 mg ity of 0.25 mg or 00:00: under the [place] 0.5 mg(2 00 skin Medical mg/1.5 mL) weekly. Branch PnIj topiramate 2021-09 Yes [id number] 75mg Take 3 [facility] 25 mg 0-13 tablets by [facility] of tablet 00:00: mouth in [place] 00 the Medical morning Branch and 3 tablets in the evening. busPIRone 2021-09 Yes [id number] 20mg Take 2 [facility] [place] 10 mg 0-13 tablets by [facility] of tablet 00:00: mouth in [place] 00 the Medical morning Branch and 2 tablets in the evening. losartan 50 2021-09 Yes [id number] 50mg Take 1 [facility] mg tablet 0-13 tablet by it[facility] o f 00:00: mouth in [place] 00 the Medical morning Branch and 1 tablet in the evening. mirabegron 2021-09 Yes [id number] 50mg Take 1 [facility] (MYRBETRIQ) 0-13 tablet by it[facility] of 50 mg 00:00: mouth in [place] tablet 00 the Medical morning. Branch semaglutide 2021-09 Yes [id number] Inject [facility] (OZEMPIC) 0-13 0.25 mg ity of 0.25 mg or 00:00: under the [place] 0.5 mg(2 00 skin Medical mg/1.5 mL) weekly. Branch PnIj topiramate 2021-09 Yes [id number] 75mg Take 3 [facility] 25 mg 0-13 tablets by [facility] of tablet 00:00: mouth in [place] 00 the Medical morning Branch and 3 tablets in the evening. busPIRone 2021-09 Yes [id number] 20mg Take 2 [facility] [place] 10 mg 0-13 tablets by [facility] of tablet 00:00: mouth in [place] 00 the Medical morning Branch and 2 tablets in the evening. losartan 50 2021-09 Yes [id number] 50mg Take 1 [facility] mg tablet 0-13 tablet by ity o f 00:00: mouth in [place] 00 the Medical morning Branch and 1 tablet in the evening. mirabegron 2021-09 Yes [id number] 50mg Take 1 [facility] (MYRBETRIQ) 0-13 tablet by it[facility] of 50 mg 00:00: mouth in [place] tablet 00 the Medical morning. Branch semaglutide 2021-09 Yes [id number] Inject [facility] (OZEMPIC) 0-13 0.25 mg ity of 0.25 mg or 00:00: under the [place] 0.5 mg(2 00 skin Medical mg/1.5 mL) weekly. Branch PnIj topiramate 2021-09 Yes [id number] 75mg Take 3 [facility] 25 mg 0-13 tablets by [facility] of tablet 00:00: mouth in [place] 00 the Medical morning Branch and 3 tablets in the evening. busPIRone 2021-09 Yes [id number] 20mg Take 2 [facility] [place] 10 mg 0-13 tablets by [facility] of tablet 00:00: mouth in [place] 00 the Medical morning Branch and 2 tablets in the evening. losartan 50 2021-09 Yes [id number] 50mg Take 1 [facility] mg tablet 0-13 tablet by ity o f 00:00: mouth in [place] 00 the Medical morning Branch and 1 tablet in the evening. mirabegron 2021-09 Yes [id number] 50mg Take 1 [facility] (MYRBETRIQ) 0-13 tablet by it[facility] of 50 mg 00:00: mouth in [place] tablet 00 the Medical morning. Branch semaglutide 2021-09 Yes [id number] Inject [facility] (OZEMPIC) 0-13 0.25 mg ity of 0.25 mg or 00:00: under the [place] 0.5 mg(2 00 skin Medical mg/1.5 mL) weekly. Branch PnIj topiramate 2021-09 Yes [id number] 75mg Take 3 [facility] 25 mg 0-13 tablets by [facility] of tablet 00:00: mouth in [place] 00 the Medical morning Branch and 3 tablets in the evening. busPIRone 2021-09 Yes [id number] 20mg Take 2 [facility] [place] 10 mg 0-13 tablets by [facility] of tablet 00:00: mouth in [place] 00 the Medical morning Branch and 2 tablets in the evening. losartan 50 2021-09 Yes [id number] 50mg Take 1 [facility] mg tablet 0-13 tablet by ity o f 00:00: mouth in [place] 00 the Medical morning Branch and 1 tablet in the evening. mirabegron 2021-09 Yes [id number] 50mg Take 1 [facility] (MYRBETRIQ) 0-13 tablet by ity of 50 mg 00:00: mouth in [place] tablet 00 the Medical morning. Branch semaglutide 2021-09 Yes [id number] Inject [facility] (OZEMPIC) 0-13 0.25 mg ity of 0.25 mg or 00:00: under the [place] 0.5 mg(2 00 skin Medical mg/1.5 mL) weekly. Branch PnIj topiramate 2021-09 Yes [id number] 75mg Take 3 [facility] 25 mg 0-13 tablets by [facility] of tablet 00:00: mouth in [place] 00 the Medical morning Branch and 3 tablets in the evening. busPIRone 2021-09 Yes [id number] 20mg Take 2 [facility] [place] 10 mg 0-13 tablets by [facility] of tablet 00:00: mouth in [place] 00 the Medical morning Branch and 2 tablets in the evening. losartan 50 2021-09 Yes [id number] 50mg Take 1 [facility] mg tablet 0-13 tablet by ity o f 00:00: mouth in [place] 00 the Medical morning Branch and 1 tablet in the evening. mirabegron 2021-09 Yes [id number] 50mg Take 1 [facility] (MYRBETRIQ) 0-13 tablet by ity of 50 mg 00:00: mouth in [place] tablet 00 the Medical morning. Branch semaglutide 2021-09 Yes [id number] Inject [facility] (OZEMPIC) 0-13 0.25 mg ity of 0.25 mg or 00:00: under the [place] 0.5 mg(2 00 skin Medical mg/1.5 mL) weekly. Branch PnIj topiramate 2021-09 Yes [id number] 75mg Take 3 [facility] 25 mg 0-13 tablets by [facility] of tablet 00:00: mouth in [place] 00 the Medical morning Branch and 3 tablets in the evening. busPIRone 2021-09 Yes [id number] 20mg Take 2 [facility] [place] 10 mg 0-13 tablets by [facility] of tablet 00:00: mouth in [place] 00 the Medical morning Branch and 2 tablets in the evening. losartan 50 2021-09 Yes [id number] 50mg Take 1 [facility] mg tablet 0-13 tablet by ity o f 00:00: mouth in [place] 00 the Medical morning Branch and 1 tablet in the evening. mirabegron 2021-09 Yes [id number] 50mg Take 1 [facility] (MYRBETRIQ) 0-13 tablet by ity of 50 mg 00:00: mouth in [place] tablet 00 the Medical morning. Branch semaglutide 2021-09 Yes [id number] Inject [facility] (OZEMPIC) 0-13 0.25 mg ity of 0.25 mg or 00:00: under the [place] 0.5 mg(2 00 skin Medical mg/1.5 mL) weekly. Branch PnIj topiramate 2021-09 Yes [id number] 75mg Take 3 [facility] 25 mg 0-13 tablets by [facility] of tablet 00:00: mouth in [place] 00 the Medical morning Branch and 3 tablets in the evening. losartan 50 2021-09 Yes [id number] 50mg Take 1 [facility] mg tablet 0-13 tablet by ity o f 00:00: mouth in [place] 00 the Medical morning Branch and 1 tablet in the evening. mirabegron 2021-09 Yes [id number] 50mg Take 1 [facility] (MYRBETRIQ) 0-13 tablet by [facility] of 50 mg 00:00: mouth in [place] tablet 00 the Medical morning. Branch semaglutide 2021-09 Yes [id number] Inject [facility] (OZEMPIC) 0-13 0.25 mg ity of 0.25 mg or 00:00: under the [place] 0.5 mg(2 00 skin Medical mg/1.5 mL) weekly. Branch PnIj topiramate 2021-09 Yes [id number] 75mg Take 3 [facility] 25 mg 0-13 tablets by [facility] of tablet 00:00: mouth in [place] 00 the Medical morning Branch and 3 tablets in the evening. losartan 50 2021-09 Yes [id number] 50mg Take 1 [facility] mg tablet 0-13 tablet by ity o f 00:00: mouth in [place] 00 the Medical morning Branch and 1 tablet in the evening. mirabegron 2021-09 Yes [id number] 50mg Take 1 [facility] (MYRBETRIQ) 0-13 tablet by [facility] of 50 mg 00:00: mouth in [place] tablet 00 the Medical morning. Branch semaglutide 2021-09 Yes [id number] Inject [facility] (OZEMPIC) 0-13 0.25 mg ity of 0.25 mg or 00:00: under the [place] 0.5 mg(2 00 skin Medical mg/1.5 mL) weekly. Branch PnIj topiramate 2021-09 Yes [id number] 75mg Take 3 [facility] 25 mg 0-13 tablets by [facility] of tablet 00:00: mouth in [place] 00 the Medical morning Branch and 3 tablets in the evening. losartan 50 2021-09 Yes [id number] 50mg Take 1 [facility] mg tablet 0-13 tablet by ity o f 00:00: mouth in [place] 00 the Medical morning Branch and 1 tablet in the evening. mirabegron 2021-09 Yes [id number] 50mg Take 1 [facility] (MYRBETRIQ) 0-13 tablet by [facility] of 50 mg 00:00: mouth in [place] tablet 00 the Medical morning. Branch semaglutide 2021-09 Yes [id number] Inject [facility] (OZEMPIC) 0-13 0.25 mg ity of 0.25 mg or 00:00: under the [place] 0.5 mg(2 00 skin Medical mg/1.5 mL) weekly. Branch PnIj topiramate 2021-09 Yes [id number] 75mg Take 3 [facility] 25 mg 0-13 tablets by [facility] of tablet 00:00: mouth in [place] 00 the Medical morning Branch and 3 tablets in the evening. losartan 50 2021-09 Yes [id number] 50mg Take 1 [facility] mg tablet 0-13 tablet by ity o f 00:00: mouth in [place] 00 the Medical morning Branch and 1 tablet in the evening. mirabegron 2021-09 Yes [id number] 50mg Take 1 [facility] (MYRBETRIQ) 0-13 tablet by [facility] of 50 mg 00:00: mouth in [place] tablet 00 the Medical morning. Branch semaglutide 2021-09 Yes [id number] Inject [facility] (OZEMPIC) 0-13 0.25 mg ity of 0.25 mg or 00:00: under the [place] 0.5 mg(2 00 skin Medical mg/1.5 mL) weekly. Branch PnIj topiramate 2021-09 Yes [id number] 75mg Take 3 [facility] 25 mg 0-13 tablets by [facility] of tablet 00:00: mouth in [place] 00 the Medical morning Branch and 3 tablets in the evening. losartan 50 2021-09 Yes [id number] 50mg Take 1 [facility] mg tablet 0-13 tablet by ity o f 00:00: mouth in [place] 00 the Medical morning Branch and 1 tablet in the evening. mirabegron 2021-09 Yes [id number] 50mg Take 1 [facility] (MYRBETRIQ) 0-13 tablet by [facility] of 50 mg 00:00: mouth in [place] tablet 00 the Medical morning. Branch semaglutide 2021-09 Yes [id number] Inject [facility] (OZEMPIC) 0-13 0.25 mg ity of 0.25 mg or 00:00: under the [place] 0.5 mg(2 00 skin Medical mg/1.5 mL) weekly. Branch PnIj topiramate 2021-09 Yes [id number] 75mg Take 3 [facility] 25 mg 0-13 tablets by [facility] of tablet 00:00: mouth in [place] 00 the Medical morning Branch and 3 tablets in the evening. losartan 50 2021-09 Yes [id number] 50mg Take 1 [facility] mg tablet 0-13 tablet by [facility]y o f 00:00: mouth in [place] 00 the Medical morning Branch and 1 tablet in the evening. mirabegron 2021-09 Yes [id number] 50mg Take 1 [facility] (MYRBETRIQ) 0-13 tablet by [facility] of 50 mg 00:00: mouth in [place] tablet 00 the Medical morning. Branch semaglutide 2021-09 Yes [id number] Inject [facility] (OZEMPIC) 0-13 0.25 mg ity of 0.25 mg or 00:00: under the [place] 0.5 mg(2 00 skin Medical mg/1.5 mL) weekly. Branch PnIj topiramate 2021-09 Yes [id number] 75mg Take 3 [facility] 25 mg 0-13 tablets by [facility] of tablet 00:00: mouth in [place] 00 the Medical morning Branch and 3 tablets in the evening. losartan 50 2021-09 Yes [id number] 50mg Take 1 [facility] mg tablet 0-13 tablet by [facility]y o f 00:00: mouth in [place] 00 the Medical morning Branch and 1 tablet in the evening. mirabegron 2021-09 Yes [id number] 50mg Take 1 [facility] (MYRBETRIQ) 0-13 tablet by [facility] of 50 mg 00:00: mouth in [place] tablet 00 the Medical morning. Branch semaglutide 2021-09 Yes [id number] Inject [facility] (OZEMPIC) 0-13 0.25 mg ity of 0.25 mg or 00:00: under the [place] 0.5 mg(2 00 skin Medical mg/1.5 mL) weekly. Branch PnIj topiramate 2021-09 Yes [id number] 75mg Take 3 [facility] 25 mg 0-13 tablets by [facility] of tablet 00:00: mouth in [place] 00 the Medical morning Branch and 3 tablets in the evening. losartan 50 2021-09 Yes [id number] 50mg Take 1 [facility] mg tablet 0-13 tablet by [facility]y o f 00:00: mouth in [place] 00 the Medical morning Branch and 1 tablet in the evening. mirabegron 2021-09 Yes [id number] 50mg Take 1 [facility] (MYRBETRIQ) 0-13 tablet by [facility]y of 50 mg 00:00: mouth in [place] tablet 00 the Medical morning. Branch semaglutide 2021-09 Yes [id number] Inject [facility] (OZEMPIC) 0-13 0.25 mg ity of 0.25 mg or 00:00: under the [place] 0.5 mg(2 00 skin Medical mg/1.5 mL) weekly. Branch PnIj topiramate 2021-09 Yes [id number] 75mg Take 3 [facility] 25 mg 0-13 tablets by [facility] of tablet 00:00: mouth in [place] the Medical morning Branch and 3 tablets in the evening. losartan 50 2021-09 Yes [id number] 50mg Take 1 [facility] mg tablet 0-13 tablet by [facility]y o f 00:00: mouth in [place] the Medical morning Branch and 1 tablet in the evening. mirabegron 2021-09 Yes [id number] 50mg Take 1 [facility] (MYRBETRIQ) 0-13 tablet by [facility]y of 50 mg 00:00: mouth in [place] tablet 00 the Medical morning. Branch semaglutide 2021-09 Yes [id number] Inject [facility] (OZEMPIC) 0-13 0.25 mg ity of 0.25 mg or 00:00: under the [place] 0.5 mg(2 00 skin Medical mg/1.5 mL) weekly. Branch PnIj topiramate 2021-09 Yes [id number] 75mg Take 3 [facility] 25 mg 0-13 tablets by [facility] of tablet 00:00: mouth in [place] 00 the Medical morning Branch and 3 tablets in the evening. losartan 50 2021-09 Yes [id number] 50mg Take 1 [facility] mg tablet 0-13 tablet by [facility]y o f 00:00: mouth in [place] 00 the Medical morning Branch and 1 tablet in the evening. mirabegron 2021-09 Yes [id number] 50mg Take 1 [facility] (MYRBETRIQ) 0-13 tablet by [facility] of 50 mg 00:00: mouth in [place] tablet 00 the Medical morning. Branch semaglutide 2021-09 Yes [id number] Inject [facility] (OZEMPIC) 0-13 0.25 mg ity of 0.25 mg or 00:00: under the [place] 0.5 mg(2 00 skin Medical mg/1.5 mL) weekly. Branch PnIj topiramate 2021-09 Yes [id number] 75mg Take 3 [facility] 25 mg 0-13 tablets by [facility] of tablet 00:00: mouth in [place] 00 the Medical morning Branch and 3 tablets in the evening. losartan 50 2021-09 Yes [id number] 50mg Take 1 [facility] mg tablet 0-13 tablet by [facility] o f 00:00: mouth in [place] 00 the Medical morning Branch and 1 tablet in the evening. mirabegron 2021-09 Yes [id number] 50mg Take 1 [facility] (MYRBETRIQ) 0-13 tablet by ity of 50 mg 00:00: mouth in [place] tablet 00 the Medical morning. Branch semaglutide 2021-09 Yes [id number] Inject [facility] (OZEMPIC) 0-13 0.25 mg ity of 0.25 mg or 00:00: under the [place] 0.5 mg(2 00 skin Medical mg/1.5 mL) weekly. Branch PnIj topiramate 2021-09 Yes [id number] 75mg Take 3 [facility] 25 mg 0-13 tablets by ity of tablet 00:00: mouth in [place] the Medical morning Branch and 3 tablets in the evening. losartan 50 2021-09 Yes [id number] 50mg Take 1 [facility] mg tablet 0-13 tablet by ity o f 00:00: mouth in [place] 00 the Medical morning Branch and 1 tablet in the evening. mirabegron 2021-09 Yes [id number] 50mg Take 1 [facility] (MYRBETRIQ) 0-13 tablet by ity of 50 mg 00:00: mouth in [place] tablet 00 the Medical morning. Branch semaglutide 2021-09 Yes [id number] Inject [facility] (OZEMPIC) 0-13 0.25 mg ity of 0.25 mg or 00:00: under the [place] 0.5 mg(2 00 skin Medical mg/1.5 mL) weekly. Branch PnIj topiramate 2021-09 Yes [id number] 75mg Take 3 [facility] 25 mg 0-13 tablets by ity of tablet 00:00: mouth in [place] 00 the Medical morning Branch and 3 tablets in the evening. losartan 50 2021-09 Yes [id number] 50mg Take 1 [facility] mg tablet 0-13 tablet by ity o f 00:00: mouth in [place] 00 the Medical morning Branch and 1 tablet in the evening. mirabegron 2021-09 Yes [id number] 50mg Take 1 [facility] (MYRBETRIQ) 0-13 tablet by ity of 50 mg 00:00: mouth in [place] tablet 00 the Medical morning. Branch semaglutide 2021-09 Yes [id number] Inject [facility] (OZEMPIC) 0-13 0.25 mg ity of 0.25 mg or 00:00: under the [place] 0.5 mg(2 00 skin Medical mg/1.5 mL) weekly. Branch PnIj topiramate 2021-09 Yes [id number] 75mg Take 3 [facility] 25 mg 0-13 tablets by ity of tablet 00:00: mouth in [place] 00 the Medical morning Branch and 3 tablets in the evening. losartan 50 2021-09 Yes [id number] 50mg Take 1 [facility] mg tablet 0-13 tablet by ity o f 00:00: mouth in [place] 00 the Medical morning Branch and 1 tablet in the evening. mirabegron 2021-09 Yes [id number] 50mg Take 1 [facility] (MYRBETRIQ) 0-13 tablet by ity of 50 mg 00:00: mouth in [place] tablet 00 the Medical morning. Branch semaglutide 2021-09 Yes [id number] Inject [facility] (OZEMPIC) 0-13 0.25 mg ity of 0.25 mg or 00:00: under the [place] 0.5 mg(2 00 skin Medical mg/1.5 mL) weekly. Branch PnIj topiramate 2021-09 Yes [id number] 75mg Take 3 [facility] 25 mg 0-13 tablets by ity of tablet 00:00: mouth in [place] 00 the Medical morning Branch and 3 tablets in the evening. losartan 50 2021-09 Yes [id number] 50mg Take 1 [facility] mg tablet 0-13 tablet by ity o f 00:00: mouth in [place] 00 the Medical morning Branch and 1 tablet in the evening. mirabegron 2021-09 Yes [id number] 50mg Take 1 [facility] (MYRBETRIQ) 0-13 tablet by ity of 50 mg 00:00: mouth in [place] tablet 00 the Medical morning. Branch semaglutide 2021-09 Yes [id number] Inject [facility] (OZEMPIC) 0-13 0.25 mg ity of 0.25 mg or 00:00: under the [place] 0.5 mg(2 00 skin Medical mg/1.5 mL) weekly. Branch PnIj topiramate 2021-09 Yes [id number] 75mg Take 3 [facility] 25 mg 0-13 tablets by ity of tablet 00:00: mouth in [place] 00 the Medical morning Branch and 3 tablets in the evening. losartan 50 2021-09 Yes [id number] 50mg Take 1 [facility] mg tablet 0-13 tablet by ity o f 00:00: mouth in [place] 00 the Medical morning Branch and 1 tablet in the evening. mirabegron 2021-09 Yes [id number] 50mg Take 1 [facility] (MYRBETRIQ) 0-13 tablet by ity of 50 mg 00:00: mouth in [place] tablet 00 the Medical morning. Branch semaglutide 2021-09 Yes [id number] Inject [facility] (OZEMPIC) 0-13 0.25 mg ity of 0.25 mg or 00:00: under the [place] 0.5 mg(2 00 skin Medical mg/1.5 mL) weekly. Branch PnIj topiramate 2021-09 Yes [id number] 75mg Take 3 [facility] 25 mg 0-13 tablets by ity of tablet 00:00: mouth in [place] 00 the Medical morning Branch and 3 tablets in the evening. losartan 50 2021-09 Yes [id number] 50mg Take 1 [facility] mg tablet 0-13 tablet by ity o f 00:00: mouth in [place] 00 the Medical morning Branch and 1 tablet in the evening. mirabegron 2021-09 Yes [id number] 50mg Take 1 [facility] (MYRBETRIQ) 0-13 tablet by ity of 50 mg 00:00: mouth in [place] tablet 00 the Medical morning. Branch semaglutide 2021-09 Yes [id number] Inject [facility] (OZEMPIC) 0-13 0.25 mg ity of 0.25 mg or 00:00: under the [place] 0.5 mg(2 00 skin Medical mg/1.5 mL) weekly. Branch PnIj topiramate 2021-09 Yes [id number] 75mg Take 3 [facility] 25 mg 0-13 tablets by ity of tablet 00:00: mouth in [place] 00 the Medical morning Branch and 3 tablets in the evening. losartan 50 2021-09 Yes [id number] 50mg Take 1 [facility] mg tablet 0-13 tablet by ity o f 00:00: mouth in [place] 00 the Medical morning Branch and 1 tablet in the evening. mirabegron 2021-09 Yes [id number] 50mg Take 1 [facility] (MYRBETRIQ) 0-13 tablet by ity of 50 mg 00:00: mouth in [place] tablet 00 the Medical morning. Branch semaglutide 2021-09 Yes [id number] Inject [facility] (OZEMPIC) 0-13 0.25 mg ity of 0.25 mg or 00:00: under the [place] 0.5 mg(2 00 skin Medical mg/1.5 mL) weekly. Branch PnIj topiramate 2021-09 Yes [id number] 75mg Take 3 [facility] 25 mg 0-13 tablets by ity of tablet 00:00: mouth in [place] 00 the Medical morning Branch and 3 tablets in the evening. losartan 50 2021-09 Yes [id number] 50mg Take 1 [facility] mg tablet 0-13 tablet by ity o f 00:00: mouth in [place] 00 the Medical morning Branch and 1 tablet in the evening. mirabegron 2021-09 Yes [id number] 50mg Take 1 [facility] (MYRBETRIQ) 0-13 tablet by ity of 50 mg 00:00: mouth in [place] tablet 00 the Medical morning. Branch semaglutide 2021-09 Yes [id number] Inject [facility] (OZEMPIC) 0-13 0.25 mg ity of 0.25 mg or 00:00: under the [place] 0.5 mg(2 00 skin Medical mg/1.5 mL) weekly. Branch PnIj topiramate 2021-09 Yes [id number] 75mg Take 3 [facility] 25 mg 0-13 tablets by ity of tablet 00:00: mouth in [place] 00 the Medical morning Branch and 3 tablets in the evening. losartan 50 2021-09 Yes [id number] 50mg Take 1 [facility] mg tablet 0-13 tablet by ity o f 00:00: mouth in [place] 00 the Medical morning Branch and 1 tablet in the evening. mirabegron 2021-09 Yes [id number] 50mg Take 1 [facility] (MYRBETRIQ) 0-13 tablet by ity of 50 mg 00:00: mouth in [place] tablet 00 the Medical morning. Branch semaglutide 2021-09 Yes [id number] Inject [facility] (OZEMPIC) 0-13 0.25 mg ity of 0.25 mg or 00:00: under the [place] 0.5 mg(2 00 skin Medical mg/1.5 mL) weekly. Branch PnIj topiramate 2021-09 Yes [id number] 75mg Take 3 [facility] 25 mg 0-13 tablets by ity of tablet 00:00: mouth in [place] 00 the Medical morning Branch and 3 tablets in the evening. losartan 50 2021-09 Yes [id number] 50mg Take 1 [facility] mg tablet 0-13 tablet by ity o f 00:00: mouth in [place] the Medical morning Branch and 1 tablet in the evening. mirabegron 2021-09 Yes [id number] 50mg Take 1 [facility] (MYRBETRIQ) 0-13 tablet by ity of 50 mg 00:00: mouth in [place] tablet 00 the Medical morning. Branch semaglutide 2021-09 Yes [id number] Inject [facility] (OZEMPIC) 0-13 0.25 mg ity of 0.25 mg or 00:00: under the [place] 0.5 mg(2 00 skin Medical mg/1.5 mL) weekly. Branch PnIj topiramate 2021-09 Yes [id number] 75mg Take 3 [facility] 25 mg 0-13 tablets by ity of tablet 00:00: mouth in [place] 00 the Medical morning Branch and 3 tablets in the evening. losartan 50 2021-09 Yes [id number] 50mg Take 1 [facility] mg tablet 0-13 tablet by ity o f 00:00: mouth in [place] 00 the Medical morning Branch and 1 tablet in the evening. mirabegron 2021-09 Yes [id number] 50mg Take 1 [facility] (MYRBETRIQ) 0-13 tablet by ity of 50 mg 00:00: mouth in [place] tablet 00 the Medical morning. Branch topiramate 2021-09 Yes [id number] 75mg Take 3 [facility] 25 mg 0-13 tablets by ity of tablet 00:00: mouth in [place] 00 the Medical morning Branch and 3 tablets in the evening. losartan 50 2021-09 Yes [id number] 50mg Take 1 [facility] mg tablet 0-13 tablet by ity o f 00:00: mouth in [place] 00 the Medical morning Branch and 1 tablet in the evening. mirabegron 2021-09 Yes [id number] 50mg Take 1 [facility] (MYRBETRIQ) 0-13 tablet by ity of 50 mg 00:00: mouth in [place] tablet 00 the Medical morning. Branch topiramate 2021-09 Yes [id number] 75mg Take 3 [facility] 25 mg 0-13 tablets by ity of tablet 00:00: mouth in [place] 00 the Medical morning Branch and 3 tablets in the evening. losartan 50 2021-09 Yes [id number] 50mg Take 1 [facility] mg tablet 0-13 tablet by ity o f 00:00: mouth in [place] 00 the Medical morning Branch and 1 tablet in the evening. mirabegron 2021-09 Yes [id number] 50mg Take 1 [facility] (MYRBETRIQ) 0-13 tablet by ity of 50 mg 00:00: mouth in [place] tablet 00 the Medical morning. Branch topiramate 2021-09 Yes [id number] 75mg Take 3 [facility] 25 mg 0-13 tablets by ity of tablet 00:00: mouth in [place] 00 the Medical morning Branch and 3 tablets in the evening. losartan 50 2021-09 Yes [id number] 50mg Take 1 [facility] mg tablet 0-13 tablet by ity o f 00:00: mouth in [place] 00 the Medical morning Branch and 1 tablet in the evening. mirabegron 2021-09 Yes [id number] 50mg Take 1 [facility] (MYRBETRIQ) 0-13 tablet by ity of 50 mg 00:00: mouth in [place] tablet 00 the Medical morning. Branch topiramate 2021-09 Yes [id number] 75mg Take 3 [facility] 25 mg 0-13 tablets by ity of tablet 00:00: mouth in [place] 00 the Medical morning Branch and 3 tablets in the evening. losartan 50 2021-09 Yes [id number] 50mg Take 1 [facility] mg tablet 0-13 tablet by ity o f 00:00: mouth in [place] 00 the Medical morning Branch and 1 tablet in the evening. mirabegron 2021-09 Yes [id number] 50mg Take 1 [facility] (MYRBETRIQ) 0-13 tablet by ity of 50 mg 00:00: mouth in [place] tablet 00 the Medical morning. Branch topiramate 2021-09 Yes [id number] 75mg Take 3 [facility] 25 mg 0-13 tablets by ity of tablet 00:00: mouth in [place] 00 the Medical morning Branch and 3 tablets in the evening. losartan 50 2021-09 Yes [id number] 50mg Take 1 [facility] mg tablet 0-13 tablet by ity o f 00:00: mouth in [place] 00 the Medical morning Branch and 1 tablet in the evening. mirabegron 2021-09 Yes [id number] 50mg Take 1 [facility] (MYRBETRIQ) 0-13 tablet by ity of 50 mg 00:00: mouth in [place] tablet 00 the Medical morning. Branch topiramate 2021-09 Yes [id number] 75mg Take 3 [facility] 25 mg 0-13 tablets by ity of tablet 00:00: mouth in [place] 00 the Medical morning Branch and 3 tablets in the evening. losartan 50 2021-09 Yes [id number] 50mg Take 1 [facility] mg tablet 0-13 tablet by ity o f 00:00: mouth in [place] 00 the Medical morning Branch and 1 tablet in the evening. mirabegron 2021-09 Yes [id number] 50mg Take 1 [facility] (MYRBETRIQ) 0-13 tablet by ity of 50 mg 00:00: mouth in [place] tablet 00 the Medical morning. Branch topiramate 2021-09 Yes [id number] 75mg Take 3 [facility] 25 mg 0-13 tablets by ity of tablet 00:00: mouth in [place] 00 the Medical morning Branch and 3 tablets in the evening. losartan 50 2021-09 Yes [id number] 50mg Take 1 [facility] mg tablet 0-13 tablet by ity o f 00:00: mouth in [place] 00 the Medical morning Branch and 1 tablet in the evening. mirabegron 2021-09 Yes [id number] 50mg Take 1 [facility] (MYRBETRIQ) 0-13 tablet by ity of 50 mg 00:00: mouth in [place] tablet 00 the Medical morning. Branch topiramate 2021-09 Yes [id number] 75mg Take 3 [facility] 25 mg 0-13 tablets by ity of tablet 00:00: mouth in [place] 00 the Medical morning Branch and 3 tablets in the evening. losartan 50 2021-09 Yes [id number] 50mg Take 1 [facility] mg tablet 0-13 tablet by ity o f 00:00: mouth in [place] 00 the Medical morning Branch and 1 tablet in the evening. mirabegron 2021-09 Yes [id number] 50mg Take 1 [facility] (MYRBETRIQ) 0-13 tablet by ity of 50 mg 00:00: mouth in [place] tablet 00 the Medical morning. Branch topiramate 2021-09 Yes [id number] 75mg Take 3 [facility] 25 mg 0-13 tablets by ity of tablet 00:00: mouth in [place] 00 the Medical morning Branch and 3 tablets in the evening. losartan 50 2021-09 Yes [id number] 50mg Take 1 [facility] mg tablet 0-13 tablet by ity o f 00:00: mouth in [place] 00 the Medical morning Branch and 1 tablet in the evening. mirabegron 2021-09 Yes [id number] 50mg Take 1 [facility] (MYRBETRIQ) 0-13 tablet by ity of 50 mg 00:00: mouth in [place] tablet 00 the Medical morning. Branch topiramate 2021-09 Yes [id number] 75mg Take 3 [facility] 25 mg 0-13 tablets by ity of tablet 00:00: mouth in [place] 00 the Medical morning Branch and 3 tablets in the evening. losartan 50 2021-09 Yes [id number] 50mg Take 1 [facility] mg tablet 0-13 tablet by ity o f 00:00: mouth in [place] 00 the Medical morning Branch and 1 tablet in the evening. mirabegron 2021-09 Yes [id number] 50mg Take 1 [facility] (MYRBETRIQ) 0-13 tablet by ity of 50 mg 00:00: mouth in [place] tablet 00 the Medical morning. Branch topiramate 2021-09 Yes [id number] 75mg Take 3 [facility] 25 mg 0-13 tablets by ity of tablet 00:00: mouth in [place] 00 the Medical morning Branch and 3 tablets in the evening. losartan 50 2021-09 Yes [id number] 50mg Take 1 [facility] mg tablet 0-13 tablet by ity o f 00:00: mouth in [place] 00 the Medical morning Branch and 1 tablet in the evening. mirabegron 2021-09 Yes [id number] 50mg Take 1 [facility] (MYRBETRIQ) 0-13 tablet by ity of 50 mg 00:00: mouth in [place] tablet 00 the Medical morning. Branch topiramate 2021-09 Yes [id number] 75mg Take 3 [facility] 25 mg 0-13 tablets by ity of tablet 00:00: mouth in [place] 00 the Medical morning Branch and 3 tablets in the evening. losartan 50 2021-09 Yes [id number] 50mg Take 1 [facility] mg tablet 0-13 tablet by ity o f 00:00: mouth in [place] 00 the Medical morning Branch and 1 tablet in the evening. mirabegron 2021-09 Yes [id number] 50mg Take 1 [facility] (MYRBETRIQ) 0-13 tablet by ity of 50 mg 00:00: mouth in [place] tablet 00 the Medical morning. Branch topiramate 2021-09 Yes [id number] 75mg Take 3 [facility] 25 mg 0-13 tablets by ity of tablet 00:00: mouth in [place] 00 the Medical morning Branch and 3 tablets in the evening. losartan 50 2021-09 Yes [id number] 50mg Take 1 [facility] mg tablet 0-13 tablet by ity o f 00:00: mouth in [place] 00 the Medical morning Branch and 1 tablet in the evening. mirabegron 2021-09 Yes [id number] 50mg Take 1 [facility] (MYRBETRIQ) 0-13 tablet by ity of 50 mg 00:00: mouth in [place] tablet 00 the Medical morning. Branch topiramate 2021-09 Yes [id number] 75mg Take 3 [facility] 25 mg 0-13 tablets by ity of tablet 00:00: mouth in [place] 00 the Medical morning Branch and 3 tablets in the evening. losartan 50 2021-09 Yes [id number] 50mg Take 1 [facility] mg tablet 0-13 tablet by ity o f 00:00: mouth in [place] 00 the Medical morning Branch and 1 tablet in the evening. mirabegron 2021-09 Yes [id number] 50mg Take 1 [facility] (MYRBETRIQ) 0-13 tablet by ity of 50 mg 00:00: mouth in [place] tablet 00 the Medical morning. Branch topiramate 2021-09 Yes [id number] 75mg Take 3 [facility] 25 mg 0-13 tablets by ity of tablet 00:00: mouth in [place] 00 the Medical morning Branch and 3 tablets in the evening. semaglutide 2021-09- No [id number] Inject [facility] (OZEMPIC) 0 02-07 0.25 mg ity of 0.25 mg or 00:00: 00:00 under the [place] 0.5 mg(2 00 :00 skin Medical mg/1.5 mL) weekly. [facility] semaglutide 2021-09- No [id number] Inject [facility] (OZEMPIC) 0 02-07 0.25 mg ity of 0.25 mg or 00:00: 00:00 under the [place] 0.5 mg(2 00 :00 skin Medical mg/1.5 mL) weekly. [facility] semaglutide 2021-09- No [id number] Inject [facility] (OZEMPIC) 0-07 0.25 mg ity of 0.25 mg or 00:00: 00:00 under the [place] 0.5 mg(2 00 :00 skin Medical mg/1.5 mL) weekly. [facility] semaglutide 2021-09- No [id number] Inject [facility] (OZEMPIC) 0-07 0.25 mg ity of 0.25 mg or 00:00: 00:00 under the [place] 0.5 mg(2 00 :00 skin Medical mg/1.5 mL) weekly. [facility] semaglutide 2021-09- No [id number] Inject [facility] (OZEMPIC) 0-07 0.25 mg ity of 0.25 mg or 00:00: 00:00 under the [place] 0.5 mg(2 00 :00 skin Medical mg/1.5 mL) weekly. [facility] semaglutide 2021-09- No [id number] Inject [facility] (OZEMPIC) 0 02-07 0.25 mg ity of 0.25 mg or 00:00: 00:00 under the [place] 0.5 mg(2 00 :00 skin Medical mg/1.5 mL) weekly. [facility] semaglutide 2021-09- No [id number] Inject [facility] (OZEMPIC) 0 02-07 0.25 mg ity of 0.25 mg or 00:00: 00:00 under the [place] 0.5 mg(2 00 :00 skin Medical mg/1.5 mL) weekly. [facility] semaglutide 2021-09- No [id number] Inject [facility] (OZEMPIC) 011-02 0.25 mg ity of 0.25 mg or 00:00: 00:00 under the [place] 0.5 mg(2 00 :00 skin Medical mg/1.5 mL) weekly. [facility] semaglutide 2021-09- No [id number] Inject [facility] (OZEMPIC) 011-02 0.25 mg ity of 0.25 mg or 00:00: 00:00 under the [place] 0.5 mg(2 00 :00 skin Medical mg/1.5 mL) weekly. [facility] semaglutide 2021-09- No [id number] Inject [facility] (OZEMPIC) 011-02 0.25 mg ity of 0.25 mg or 00:00: 00:00 under the [place] 0.5 mg(2 00 :00 skin Medical mg/1.5 mL) weekly. [facility] semaglutide 2021-09- No [id number] Inject [facility] (OZEMPIC) 0- 0.25 mg ity of 0.25 mg or 00:00: 00:00 under the [place] 0.5 mg(2 00 :00 skin Medical mg/1.5 mL) weekly. [facility] semaglutide 2021-09- No [id number] Inject [facility] (OZEMPIC) 11-02 0.25 mg ity of 0.25 mg or 00:00: 00:00 under the [place] 0.5 mg(2 00 :00 skin Medical mg/1.5 mL) weekly. [facility] busPIRone 2021-09- No [id number] 20mg Take 2 [facility] nivers 10 mg 10-12 tablets by ity of tablet 00:00: 00:00 mouth in [place] 00 :00 the Medical morning Branch and 2 tablets in the evening. diltiazem 2021-09- No [id number] 120mg Take 1 [facility] 120 mg 24 07-27 capsule by ity of hr capsule 00:00: 00:00 mouth in [place] 00 :00 the Medical morning Branch and 1 capsule in the evening. levothyroxi 2021-09- No [id number] 50ug Take 1 [facility] ne 50 mcg 07-27 tablet by ity of tablet 00:00: 00:00 mouth [place] 00 :00 every Medical morning. Branch metformin 2021-09- No [id number] 500mg Take 1 [facility] ER 500 mg 07-27 tablet by ity of 24 hr 00:00: 00:00 mouth [place] tablet 00 :00 daily with Medical breakfast. Branch STOP REGULAR METFORMIN. pantoprazol 2021-09- No [id number] 40mg Take 1 [facility] e 40 mg EC 07-27 tablet by ity of tablet 00:00: 00:00 mouth in [place] 00 :00 the Medical morning. Branch pregabalin 2021-09- No [id number] 150mg Take 1 [facility] 150 mg 07-27 capsule by ity of capsule 00:00: 00:00 mouth in [place] 00 :00 the Medical morning Branch and 1 capsule at noon and 1 capsule in the evening. rosuvastati 2021-09- No [id number] 10mg Take 1 [facility] n 10 mg 07-27 tablet by ity of tablet 00:00: 00:00 mouth at [place] 00 :00 bedtime. Medical Branch SUMAtriptan 2021-09- No [id number] 50mg Take 1 [facility] 50 mg 07-27 tablet by ity of tablet 00:00: 00:00 mouth as [place] 00 :00 needed for Medical Migraine. Branch diltiazem 2021-09- No [id number] 120mg Take 1 [facility] 120 mg 24 07-27 capsule by ity of hr capsule 00:00: 00:00 mouth in [place] 00 :00 the Medical morning Branch and 1 capsule in the evening. levothyroxi 2021-09- No [id number] 50ug Take 1 [facility] ne 50 mcg 07-27 tablet by ity of tablet 00:00: 00:00 mouth [place] 00 :00 every Medical morning. Branch metformin 2021-09- No [id number] 500mg Take 1 [facility] ER 500 mg 07-27 tablet by ity of 24 hr 00:00: 00:00 mouth [place] tablet 00 :00 daily with Medical breakfast. Branch STOP REGULAR METFORMIN. pantoprazol 2021-09- No [id number] 40mg Take 1 [facility] e 40 mg EC 07-27 tablet by ity of tablet 00:00: 00:00 mouth in [place] 00 :00 the Medical morning. Branch pregabalin 2021-09- No [id number] 150mg Take 1 [facility] 150 mg 07-27 capsule by ity of capsule 00:00: 00:00 mouth in [place] 00 :00 the Medical morning Branch and 1 capsule at noon and 1 capsule in the evening. rosuvastati 2021-09- No [id number] 10mg Take 1 [facility] n 10 mg 07-27 tablet by ity of tablet 00:00: 00:00 mouth at [place] 00 :00 bedtime. Medical Branch SUMAtriptan 2021-09- No [id number] 50mg Take 1 [facility] 50 mg 07-27 tablet by ity of tablet 00:00: 00:00 mouth as [place] 00 :00 needed for Medical Migraine. Branch SUMAtriptan Yes [id number] 50mg Take 1 [facility] 50 mg 9-30 tablet by ity of tablet 00:00: mouth as [place] 00 needed for Medical Migraine. Branch SUMAtriptan Yes [id number] 50mg Take 1 [facility] 50 mg 9-30 tablet by ity of tablet 00:00: mouth as [place] 00 needed for Medical Migraine. Branch SUMAtriptan Yes [id number] 50mg Take 1 [facility] 50 mg 9-30 tablet by ity of tablet 00:00: mouth as [place] 00 needed for Medical Migraine. Branch SUMAtriptan Yes [id number] 50mg Take 1 [facility] 50 mg 9-30 tablet by ity of tablet 00:00: mouth as [place] 00 needed for Medical Migraine. Branch SUMAtriptan Yes [id number] 50mg Take 1 [facility] 50 mg 9-30 tablet by ity of tablet 00:00: mouth as [place] 00 needed for Medical Migraine. Branch SUMAtriptan 2021- No [id number] 50mg Take 1 [facility] 50 mg 9-30 -13 tablet by ity of tablet 00:00: 00:00 mouth as [place] 00 :00 needed for Medical Migraine. Branch FOLIC ACID Yes Take by Univ ers ORAL - mouth ity of 10:41: daily. [place] 15 Medical Branch MULTIVIT 0 Yes Take by Univer s &MINERALS/F - mouth. ity of ERROUS FUM 10:41: [place] (MULTI 15 Medical VITAMIN Branch ORAL) METHYLCELLU 0 Yes Univer s LOSE (FIBER 9-22 ity of THERAPY 10:41: [place] [facility]) 15 Medical Branch [facility]ATE 0 [facility] mouth. ity of (COLACE [...] unit) tablet CRANBERRY Yes [facility] FRUIT - mouth ity of EXTRACT 10:41: daily. [place] (CRANBERRY 15 Medical ORAL) Branch CALCIUM Yes Take by [facility] ORAL - mouth ity of 10:41: daily. [place] 15 Medical Branch DOCOSAHEXAN Yes 1000mg Take 1,000 [facility] OIC 9-22 mg by ity of ACID/EPA 10:41: mouth [place] (FISH OIL 15 daily. Medical ORAL) Branch BIOTIN ORAL Yes Take by [facility] vers - mouth. ity of 10:41: [place] 15 Medical Branch FOLIC ACID 0 Yes Take by Univ ers ORAL 9-22 mouth ity of 10:41: daily. [place] 15 Medical Branch MULTIVIT Yes Take by Univer s &MINERALS/F - mouth. ity of ERROUS FUM 10:41: [place] (MULTI 15 Medical VITAMIN Branch ORAL) METHYLCELLU 0 Yes Univer s LOSE (FIBER 9-22 ity of THERAPY 10:41: [place] MIS) 15 Medical Branch DOCUSATE 0 Yes [facility] SOD[facility] 9-22 mouth. ity of (COLACE [...] - mouth ity of EXTRACT 10:41: daily. [place] (CRANBERRY 15 Medical ORAL) Branch CALCIUM Yes Take by [facility] ORAL - mouth ity of 10:41: daily. [place] 15 Medical Branch DOCOSAHEXAN Yes 1000mg Take 1,000 [facility] OIC 9-22 mg by ity of ACID/EPA 10:41: mouth [place] (FISH OIL 15 daily. Medical ORAL) Branch BIOTIN ORAL Yes Take by Uni vers 06-17 mouth. ity of 10:41: [place] [address] Medical Branch FOLIC ACID Yes Take by Univ ers ORAL - mouth ity of 10:41: daily. [place] [address] Medical Branch MULTIVIT Yes Take by Univer s &MINERALS/F - mouth. ity of ERROUS FUM 10:41: [place] (MULTI 15 Medical VITAMIN Branch ORAL) METHYLCELLU Yes Univer s LOSE (FIBER - ity of THERAPY 10:41: [place] MIS) Medical Branch DOCUSATE Yes Take by [...] 9-22 mouth ity of EXTRACT 10:41: daily. [place] (CRANBERRY 15 Medical ORAL) Branch CALCIUM Yes Take by [facility] ORAL 9-22 mouth ity of 10:41: daily. [place] 15 Medical Branch DOCOSAHEXAN Yes 1000mg Take 1,000 [facility] OIC 9-22 mg by ity of ACID/EPA 10:41: mouth [place] (FISH OIL 15 daily. Medical ORAL) Branch BIOTIN ORAL Yes Take by Uni vers 06-17 mouth. ity of 10:41: [place] [address] Medical Branch FOLIC ACID Yes Take by Univ ers ORAL 06-17 mouth ity of 10:41: daily. [place] [address] Medical Branch MULTIVIT Yes Take by Univer s &MINERALS/F 06-17 mouth. ity of ERROUS FUM 10:41: [place] (MULTI 15 Medical VITAMIN Branch ORAL) METHYLCELLU Yes Univer s LOSE (FIBER 06-17 ity of THERAPY 10:41: [place] MISC) Medical Branch DOCUSATE Yes Take by [...] 06-17 mouth ity of EXTRACT 10:41: daily. [place] (CRANBERRY 15 Medical ORAL) Branch CALCIUM Yes Take by [facility] ORAL -22 mouth ity of 10:41: daily. [place] 15 Medical Branch DOCOSAHEXAN Yes 1000mg Take 1,000 [facility] OIC 9-22 mg by ity of ACID/EPA 10:41: mouth [place] (FISH OIL 15 daily. Medical ORAL) Branch BIOTIN ORAL Yes Take by Uni vers - mouth. ity of 10:41: [place] [address] Medical Branch FOLIC ACID Yes Take by Univ ers ORAL - mouth ity of 10:41: daily. [place] [address] Medical Branch MULTIVIT Yes Take by Univer s &MINERALS/F -22 mouth. ity of ERROUS FUM 10:41: [place] (MULTI 15 Medical VITAMIN Branch ORAL) METHYLCELLU 0 Yes Univer s LOSE (FIBER 9-22 ity of THERAPY 10:41: [facility]) 15 Medical Branch DOCUSATE Yes [...] unit) tablet CRANBERRY Yes [facility] - mouth ity of EXTRACT 10:41: daily. [place] (CRANBERRY 15 Medical ORAL) Branch CALCIUM Yes Take by [facility] ORAL -22 mouth ity of 10:41: daily. [place] 15 Medical Branch DOCOSAHEXAN Yes 1000mg Take 1,000 [facility] OIC 9-22 mg by ity of ACID/EPA 10:41: mouth [place] (FISH OIL 15 daily. Medical ORAL) Branch BIOTIN ORAL Yes Take by Uni vers - mouth. ity of 10:41: [place] [address] Medical Branch FOLIC ACID Yes Take by Univ ers ORAL - mouth ity of 10:41: daily. [place] 15 Medical Branch MULTIVIT Yes Take by [facility] s &MINERALS/F -22 mouth. ity of ERROUS FUM 10:41: [place] (MULTI 15 Medical VITAMIN Branch ORAL) METHYLCELLU 0 Yes Univer s LOSE (FIBER 9-22 ity of THERAPY 10:41: [facility]) Medical Branch DOCUSATE 0 Yes [...] - mouth ity of EXTRACT 10:41: daily. [place] (CRANBERRY 15 Medical ORAL) Branch CALCIUM Yes Take by [facility] ORAL - mouth ity of 10:41: daily. [place] 15 Medical Branch DOCOSAHEXAN Yes 1000mg Take 1,000 [facility] OIC 9-22 mg by ity of ACID/EPA 10:41: mouth [place] (FISH OIL 15 daily. Medical ORAL) Branch BIOTIN ORAL Yes Take by Uni vers 06-17 mouth. ity of 10:41: [place] [address] Medical Branch FOLIC ACID Yes Take by [facility] ers ORAL 06-17 mouth ity of 10:41: daily. [place] [address] Medical Branch MULTIVIT Yes Take by [facility] s &MINERALS/F 06-17 mouth. ity of ERROUS FUM 10:41: [place] (MULTI 15 Medical VITAMIN Branch ORAL) METHYLCELLU Yes [facility]iver s LOSE (FIBER 06-17 ity of THERAPY 10:41: [place] MISC) Medical Branch DOCUSATE Yes Take by [...] - mouth ity of EXTRACT 10:41: daily. [place] (CRANBERRY 15 Medical ORAL) Branch CALCIUM Yes Take by [facility] ORAL - mouth ity of 10:41: daily. [place] [facility] Branch DOCOSAHEXAN Yes 1000mg Take 1,000 [facility] OIC 9-22 mg by ity of ACID/EPA 10:41: mouth [place] (FISH OIL 15 daily. Medical ORAL) Branch BIOTIN ORAL Yes Take by Uni vers 9-22 mouth. ity of 10:41: [place] 15 Medical Branch FOLIC ACID 0 Yes Take by Univ ers ORAL - mouth ity of 10:41: daily. [place] 15 Medical Branch MULTIVIT Yes Take by [facility] s &MINERALS/F - mouth. ity of ERROUS FUM 10:41: [place] (MULTI 15 Medical VITAMIN Branch ORAL) METHYLCELLU 0 Yes Univer s LOSE (FIBER - ity of THERAPY 10:41: [place] MISC) 15 Medical Branch DOCUSATE Yes Take [...] - mouth ity of EXTRACT 10:41: daily. [place] (CRANBERRY 15 Medical ORAL) Branch CALCIUM Yes Take by [facility] ORAL 9- mouth ity of 10:41: daily. [place] Medical Branch DOCOSAHEXAN Yes 1000mg Take 1,000 [facility] OIC 9-22 mg by ity of ACID/EPA 10:41: mouth [place] (FISH OIL 15 daily. Medical ORAL) Branch BIOTIN ORAL Yes Take by Uni vers 9-22 mouth. ity of 10:41: [place] 15 Medical Branch FOLIC ACID 0 Yes Take by [facility] ers ORAL 9- mouth ity of 10:41: daily. [place] 15 Medical Branch MULTIVIT 0 Yes Take by [facility] s &MINERALS/F - mouth. ity of ERROUS FUM 10:41: [place] (MULTI 15 Medical VITAMIN Branch ORAL) METHYLCELLU 0 Yes Univer s LOSE (FIBER 9- ity of THERAPY 10:41: [place] MISC) 15 Medical Branch DOCUSATE Yes Take by Univer s SODIUM 9-22 mouth. ity of (COLACE 10:41: [place] ORAL) 15 Medical Branch vitamin C Yes 1000mg Take 1,000 [facility] with derrell 9-22 mg by ity of hips 1,000 10:41: mouth [place] mg tablet 15 daily. Medical Branch cholecalcif Yes 1000U Take 1,000 [facility] edmar, 9-22 Units by ity of vitamin D3, 10:41: mouth [place] 25 mcg 15 daily. Medical (1,000 Branch unit) tablet CRANBERRY Yes Take by [facility] FRUIT 06-17 mouth ity of EXTRACT 10:41: daily. [place] (CRANBERRY 15 Medical ORAL) Branch CALCIUM Yes Take by [facility] ORAL 06-17 mouth ity of 10:41: daily. [place] [address] Medical Branch DOCOSAHEXAN Yes 1000mg Take 1,000 [facility] OIC 9-22 mg by ity of ACID/EPA 10:41: mouth [place] (FISH OIL 15 daily. Medical ORAL) Branch BIOTIN ORAL Yes Take by Uni vers 06-17 mouth. ity of 10:41: [place] [address] Medical Branch FOLIC ACID Yes Take by Univ ers ORAL - mouth ity of 10:41: daily. [place] [address] Medical Branch MULTIVIT Yes Take by Univer s &MINERALS/F - mouth. ity of ERROUS FUM 10:41: [place] (MULTI 15 Medical VITAMIN Branch ORAL) METHYLCELLU Yes Univer s LOSE (FIBER - ity of THERAPY 10:41: [facility]) Medical Branch DOCUSATE Yes Take by Univer s SODIUM -22 mouth. ity of (COLACE 10:41: [place] ORAL) 15 Medical Branch vitamin C Yes [...] 06-17 mouth ity of EXTRACT 10:41: daily. [place] (CRANBERRY 15 Medical ORAL) Branch CALCIUM Yes Take by [facility] ORAL 06-17 mouth ity of 10:41: daily. [place] 15 Medical Branch DOCOSAHEXAN Yes 1000mg Take 1,000 [facility] OIC 9-22 mg by ity of ACID/EPA 10:41: mouth [place] (FISH OIL 15 daily. Medical ORAL) Branch BIOTIN ORAL Yes Take by Uni vers 06-17 mouth. ity of 10:41: [place] [address] Medical Branch FOLIC ACID Yes Take by Univ ers ORAL 06-17 mouth ity of 10:41: daily. [place] [address] Medical Branch MULTIVIT Yes Take by [facility]iver s &MINERALS/F 06-17 mouth. ity of ERROUS FUM 10:41: [place] (MULTI 15 Medical VITAMIN Branch ORAL) METHYLCELLU Yes Univer s LOSE (FIBER 06-17 ity of THERAPY 10:41: [place] MISC) Medical Branch DOCUSATE Yes Take by [...] unit) tablet CRANBERRY Yes Take by [facility] FRUIT - mouth ity of EXTRACT 10:41: daily. [place] (CRANBERRY 15 Medical ORAL) Branch CALCIUM Yes Take by [facility] ORAL - mouth ity of 10:41: daily. [place] 15 Medical Branch DOCOSAHEXAN Yes 1000mg Take 1,000 [facility] OIC 9-22 mg by ity of ACID/EPA 10:41: mouth [place] (FISH OIL 15 daily. Medical ORAL) Branch BIOTIN ORAL Yes Take by Uni vers - mouth. ity of 10:41: [place] [address] Medical Branch FOLIC ACID 2022-0 Yes Take by Univ ers ORAL 9- mouth ity of 10:41: daily. [place] 15 Medical Branch MULTIVIT Yes Take by Univer s &MINERALS/F - mouth. ity of ERROUS FUM 10:41: [place] (MULTI 15 Medical VITAMIN Branch ORAL) METHYLCELLU Yes Univer s LOSE (FIBER - ity of THERAPY 10:41: [facility]) 15 Medical Branch DOCUSATE Yes [...] Branch unit) tablet CRANBERRY Yes Take by [facility] rs FRUIT 06-17 mouth ity of EXTRACT 10:41: daily. [place] (CRANBERRY 15 Medical ORAL) Branch CALCIUM Yes Take by [facility] ORAL - mouth ity of 10:41: daily. [place] [address] Medical Branch DOCOSAHEXAN Yes 1000mg Take 1,000 [facility] OIC 9-22 mg by ity of ACID/EPA 10:41: mouth [place] (FISH OIL 15 daily. Medical ORAL) Branch BIOTIN ORAL Yes Take by Uni vers - mouth. ity of 10:41: [place] [address] Medical Branch FOLIC ACID Yes Take by Univ ers ORAL - mouth ity of 10:41: daily. [place] [address] Medical Branch MULTIVIT Yes Take by Univer s &MINERALS/F -22 mouth. ity of ERROUS FUM 10:41: [place] (MULTI 15 Medical VITAMIN Branch ORAL) METHYLCELLU Yes Univer s LOSE (FIBER 9-22 ity of THERAPY 10:41: [facility]) Medical Branch DOCUSATE Yes [facility] SOD[facility] -22 mouth. ity of (COLACE [...] unit) tablet CRANBERRY Yes Take by [facility] FRUIT - mouth ity of EXTRACT 10:41: daily. [place] (CRANBERRY 15 Medical ORAL) Branch CALCIUM Yes Take by [facility] ORAL - mouth ity of 10:41: daily. [place] 15 Medical Branch DOCOSAHEXAN Yes 1000mg Take 1,000 [facility] OIC 9-22 mg by ity of ACID/EPA 10:41: mouth [place] (FISH OIL 15 daily. Medical ORAL) Branch BIOTIN ORAL Yes Take by Uni vers 06-17 mouth. ity of 10:41: [place] [address] Medical Branch FOLIC ACID Yes Take by Univ ers ORAL 06-17 mouth ity of 10:41: daily. [place] 15 Medical Branch MULTIVIT Yes [facility] &[facility]/F 06-17 mouth. ity of ERROUS FUM 10:41: [place] (MULTI 15 Medical VITAMIN Branch ORAL) METHYLCELLU Yes [facility] s LOSE (FIBER 06-17 ity of THERAPY 10:41: [place] MIS) Medical Branch DOCUSATE Yes Take by [facility] SODIUM - mouth. ity of (COLACE [...] - mouth ity of EXTRACT 10:41: daily. [place] (CRANBERRY 15 Medical ORAL) Branch CALCIUM Yes Take by [facility] ORAL - mouth ity of 10:41: daily. [place] 15 Medical Branch DOCOSAHEXAN Yes 1000mg Take 1,000 [facility] OIC 9-22 mg by ity of ACID/EPA 10:41: mouth [place] (FISH OIL 15 daily. Medical ORAL) Branch BIOTIN ORAL 0 Yes Take by Uni vers 9-22 mouth. ity of 10:41: [place] 15 Medical Branch FOLIC ACID 0 Yes Take by Univ ers ORAL 9-22 mouth ity of 10:41: daily. [place] [address] Medical Branch MULTIVIT 0 Yes Take by Univer s &MINERALS/F - mouth. ity of ERROUS FUM 10:41: [place] (MULTI 15 Medical VITAMIN Branch ORAL) METHYLCELLU 0 Yes Univer s LOSE (FIBER 06-17 ity of THERAPY 10:41: [facility]) Medical Branch vitamin C Yes 1000mg Take [...] - mouth ity of EXTRACT 10:41: daily. [place] (CRANBERRY 15 Medical ORAL) Branch CALCIUM Yes Take by [facility] ORAL 9- mouth ity of 10:41: daily. [place] Medical Branch DOCOSAHEXAN Yes 1000mg Take 1,000 [facility] OIC 9-22 mg by ity of ACID/EPA 10:41: mouth [place] (FISH OIL 15 daily. Medical ORAL) Branch BIOTIN ORAL Yes Take by Uni vers 9-22 mouth. ity of 10:41: [place] [address] Medical Branch FOLIC ACID 0 Yes Take by Univ ers ORAL 9-22 mouth ity of 10:41: daily. [place] [address] Medical Branch MULTIVIT 0 Yes Take by Univer s &MINERALS/F -22 mouth. ity of ERROUS FUM 10:41: [place] (MULTI 15 Medical VITAMIN Branch ORAL) METHYLCELLU 0 Yes Univer s LOSE (FIBER - ity of THERAPY 10:41: [facility] 15 Medical Branch vitamin C [...] 06-17 mouth ity of EXTRACT 10:41: daily. [place] (CRANBERRY 15 Medical ORAL) Branch CALCIUM Yes Take by [facility] ORAL 06-17 mouth ity of 10:41: daily. [place] [address] Medical Branch DOCOSAHEXAN Yes 1000mg Take 1,000 [facility] OIC 9-22 mg by ity of ACID/EPA 10:41: mouth [place] (FISH OIL 15 daily. Medical ORAL) Branch BIOTIN ORAL Yes Take by Uni vers 06-17 mouth. ity of 10:41: [place] [address] Medical Branch FOLIC ACID Yes Take by Univ ers ORAL 06-17 mouth ity of 10:41: daily. [place] [address] Medical Branch MULTIVIT Yes Take by Univer s &MINERALS/F 06-17 mouth. ity of ERROUS FUM 10:41: [place] (MULTI 15 Medical VITAMIN Branch ORAL) METHYLCELLU Yes Univer s LOSE (FIBER 06-17 ity of THERAPY 10:41: [facility] 15 Medical Branch vitamin C [...] - mouth ity of EXTRACT 10:41: daily. [place] (CRANBERRY 15 Medical ORAL) Branch CALCIUM Yes Take by [facility] ORAL - mouth ity of 10:41: daily. [place] [address] Medical Branch DOCOSAHEXAN Yes 1000mg Take 1,000 [facility] OIC 9-22 mg by ity of ACID/EPA 10:41: mouth [place] (FISH OIL 15 daily. Medical ORAL) Branch BIOTIN ORAL Yes Take by Uni vers - mouth. ity of 10:41: [place] 15 Medical Branch FOLIC ACID 0 Yes Take by Univ ers ORAL - mouth ity of 10:41: daily. [place] 15 Medical Branch MULTIVIT Yes Take by Univer s &MINERALS/F - mouth. ity of ERROUS FUM 10:41: [place] (MULTI 15 Medical VITAMIN Branch ORAL) METHYLCELLU 0 Yes Univer s LOSE (FIBER 9-22 ity of THERAPY 10:41: [facility]) 15 Medical Branch vitamin C Yes 1000mg Take 1,000 [facility] with derrlel 9-22 mg by ity of hips 1,000 10:41: mouth [place] mg tablet 15 daily. Medical Branch cholecalcif Yes 1000U Take 1,000 [facility] edmar, 9-22 Units by ity of vitamin D3, 10:41: mouth [place] 25 mcg 15 daily. Medical (1,000 Branch unit) tablet CRANBERRY Yes Take by Unive rs FRUIT 06-17 mouth ity of EXTRACT 10:41: daily. [place] (CRANBERRY 15 Medical ORAL) Branch CALCIUM Yes Take by Univers ORAL - mouth ity of 10:41: daily. [place] 15 Medical Branch DOCOSAHEXAN Yes 1000mg Take 1,000 [facility] OIC 9-22 mg by ity of ACID/EPA 10:41: mouth [place] (FISH OIL 15 daily. Medical ORAL) Branch BIOTIN ORAL Yes Take by Uni vers - mouth. ity of 10:41: [place] 15 Medical Branch FOLIC ACID 0 Yes Take by Univ ers ORAL - mouth ity of 10:41: daily. [place] 15 Medical Branch MULTIVIT 0 Yes Take by Univer s &MINERALS/F - mouth. ity of ERROUS FUM 10:41: [place] (MULTI 15 Medical VITAMIN Branch ORAL) METHYLCELLU 0 Yes Univer s LOSE (FIBER 9-22 ity of THERAPY 10:41: [facility]) Medical Branch vitamin C 0 Yes 1000mg [...] 06-17 mouth ity of EXTRACT 10:41: daily. [place] (CRANBERRY 15 Medical ORAL) Branch CALCIUM Yes Take by Univers ORAL 06-17 mouth ity of 10:41: daily. [place] 15 Medical Branch DOCOSAHEXAN Yes 1000mg Take 1,000 [facility] OIC 9-22 mg by ity of ACID/EPA 10:41: mouth [place] (FISH OIL 15 daily. Medical ORAL) Branch BIOTIN ORAL Yes Take by Uni vers 06-17 mouth. ity of 10:41: [place] [address] Medical Branch FOLIC ACID Yes Take by Univ ers ORAL 06-17 mouth ity of 10:41: daily. [place] [address] Medical Branch MULTIVIT Yes [facility] &[facility]/F 06-17 mouth. ity of ERROUS FUM 10:41: [place] (MULTI 15 Medical VITAMIN Branch ORAL) METHYLCELLU Yes [facility] LOSE (FIBER 06-17 ity of THERAPY 10:41: [facility]) Medical Branch vitamin C Yes 1000mg Take [...] - mouth ity of EXTRACT 10:41: daily. [place] (CRANBERRY 15 Medical ORAL) Branch CALCIUM Yes Take by Univers ORAL 06-17 mouth ity of 10:41: daily. [place] Medical Branch DOCOSAHEXAN Yes 1000mg Take 1,000 [facility] OIC 9-22 mg by ity of ACID/EPA 10:41: mouth [place] (FISH OIL 15 daily. Medical ORAL) Branch BIOTIN ORAL Yes Take by Uni vers -22 mouth. ity of 10:41: [place] 15 Medical Branch FOLIC ACID 0 Yes Take by Univ ers ORAL - mouth ity of 10:41: daily. [place] 15 Medical Branch MULTIVIT 0 Yes Take by Univer s &MINERALS/F - mouth. ity of ERROUS FUM 10:41: [place] (MULTI 15 Medical VITAMIN Branch ORAL) METHYLCELLU 0 Yes Univer s LOSE (FIBER 9-22 ity of THERAPY 10:41: [facility]) 15 Medical Branch vitamin C [...] 06-17 mouth ity of EXTRACT 10:41: daily. [place] (CRANBERRY 15 Medical ORAL) Branch CALCIUM Yes Take by Univers ORAL 06-17 mouth ity of 10:41: daily. [place] 15 Medical Branch DOCOSAHEXAN Yes 1000mg Take 1,000 [facility] OIC 9-22 mg by ity of ACID/EPA 10:41: mouth [place] (FISH OIL 15 daily. Medical ORAL) Branch BIOTIN ORAL Yes Take by Uni vers - mouth. ity of 10:41: [place] 15 Medical Branch FOLIC ACID 0 Yes Take by Univ ers ORAL - mouth ity of 10:41: daily. [place] 15 Medical Branch MULTIVIT 0 Yes Take by Univer s &MINERALS/F - mouth. ity of ERROUS FUM 10:41: [place] (MULTI 15 Medical VITAMIN Branch ORAL) METHYLCELLU 0 Yes Univer s LOSE (FIBER 9-22 ity of THERAPY 10:41: [facility]) 15 Medical Branch vitamin C [...] 06-17 mouth ity of EXTRACT 10:41: daily. [place] (CRANBERRY 15 Medical ORAL) Branch CALCIUM Yes Take by Univers ORAL 06-17 mouth ity of 10:41: daily. [place] 15 Medical Branch DOCOSAHEXAN Yes 1000mg Take 1,000 [facility] OIC 9-22 mg by ity of ACID/EPA 10:41: mouth [place] (FISH OIL 15 daily. Medical ORAL) Branch BIOTIN ORAL Yes Take by Uni vers 06-17 mouth. ity of 10:41: [place] [address] Medical Branch FOLIC ACID Yes Take by Univ ers ORAL 06-17 mouth ity of 10:41: daily. [place] [address] Medical Branch MULTIVIT Yes Take by Univer s &MINERALS/F 06-17 mouth. ity of ERROUS FUM 10:41: [place] (MULTI 15 Medical VITAMIN Branch ORAL) METHYLCELLU Yes Univer s LOSE (FIBER 06-17 ity of THERAPY 10:41: [facility]) Medical Branch vitamin C Yes 1000mg Take [...] - mouth ity of EXTRACT 10:41: daily. [place] (CRANBERRY 15 Medical ORAL) Branch CALCIUM Yes Take by Univers ORAL - mouth ity of 10:41: daily. [place] 15 Medical Branch DOCOSAHEXAN Yes 1000mg Take 1,000 [facility] OIC 9-22 mg by ity of ACID/EPA 10:41: mouth [place] (FISH OIL 15 daily. Medical ORAL) Branch BIOTIN ORAL Yes Take by Uni vers 06-17 mouth. ity of 10:41: [place] [address] Medical Branch FOLIC ACID 0 Yes Take by Univ ers ORAL - mouth ity of 10:41: daily. [place] 15 Medical Branch MULTIVIT 0 Yes Take by Univer s &MINERALS/F 06-17 mouth. ity of ERROUS FUM 10:41: [place] (MULTI 15 Medical VITAMIN Branch ORAL) METHYLCELLU 0 Yes Univer s LOSE (FIBER - ity of THERAPY 10:41: [facility]) 15 Medical Branch vitamin C 0 Yes 1000mg Take 1,000 [facility] with derrell 9-22 mg by ity of hips 1,000 10:41: mouth [place] mg tablet 15 daily. Medical Branch cholecalcif 0 Yes 1000U Take 1,000 [facility] edmar, 9-22 Units by ity of vitamin D3, 10:41: mouth [place] 25 mcg 15 daily. Medical (1,000 Branch unit) tablet CRANBERRY Yes Take by [facility] rs FRUIT 06-17 mouth ity of EXTRACT 10:41: daily. [place] (CRANBERRY 15 Medical ORAL) Branch CALCIUM 0 Yes Take by Univers ORAL 06-17 mouth ity of 10:41: daily. [place] 15 Medical Branch DOCOSAHEXAN Yes 1000mg Take 1,000 [facility] OIC 9-22 mg by ity of ACID/EPA 10:41: mouth [place] (FISH OIL 15 daily. Medical ORAL) Branch BIOTIN ORAL 0 Yes Take by Uni vers 06-17 mouth. ity of 10:41: [place] [address] Medical Branch FOLIC ACID 0 Yes Take by Univ ers ORAL - mouth ity of 10:41: daily. [place] [address] Medical Branch MULTIVIT 0 Yes Take by Univer s &MINERALS/F - mouth. ity of ERROUS FUM 10:41: [place] (MULTI 15 Medical VITAMIN Branch ORAL) METHYLCELLU 2021-0 Yes Univer s LOSE (FIBER - ity of THERAPY 10:41: [facility]) Medical Branch vitamin C 0 Yes 1000mg [...] - mouth ity of EXTRACT 10:41: daily. [place] (CRANBERRY 15 Medical ORAL) Branch CALCIUM Yes Take by Univers ORAL - mouth ity of 10:41: daily. [place] [address] Medical Branch DOCOSAHEXAN Yes 1000mg Take 1,000 [facility] OIC 9-22 mg by ity of ACID/EPA 10:41: mouth [place] (FISH OIL 15 daily. Medical ORAL) Branch BIOTIN ORAL Yes Take by Uni vers 06-17 mouth. ity of 10:41: [place] [address] Medical Branch FOLIC ACID Yes Take by Univ ers ORAL - mouth ity of 10:41: daily. [place] [address] Medical Branch MULTIVIT Yes Take by Univer s &MINERALS/F 06-17 mouth. ity of ERROUS FUM 10:41: [place] (MULTI 15 Medical VITAMIN Branch ORAL) METHYLCELLU Yes Univer s LOSE (FIBER 06-17 ity of THERAPY 10:41: [facility]) Medical Branch vitamin C Yes 1000mg Take [...] - mouth ity of EXTRACT 10:41: daily. [place] (CRANBERRY 15 Medical ORAL) Branch CALCIUM Yes Take by Univers ORAL - mouth ity of 10:41: daily. [place] [address] Medical Branch DOCOSAHEXAN Yes 1000mg Take 1,000 [facility] OIC 9-22 mg by ity of ACID/EPA 10:41: mouth [place] (FISH OIL 15 daily. Medical ORAL) Branch BIOTIN ORAL Yes Take by Uni vers - mouth. ity of 10:41: [place] [address] Medical Branch FOLIC ACID Yes Take by Univ ers ORAL - mouth ity of 10:41: daily. [place] 15 Medical Branch MULTIVIT Yes Take by Univer s &MINERALS/F 06-17 mouth. ity of ERROUS FUM 10:41: [place] (MULTI 15 Medical VITAMIN Branch ORAL) METHYLCELLU 0 Yes Univer s LOSE (FIBER 06-17 ity of THERAPY 10:41: [facility]) 15 Medical Branch vitamin C Yes 1000mg Take 1,000 [facility] with derrell 9-22 mg by ity of hips 1,000 10:41: mouth [place] mg tablet 15 daily. Medical Branch cholecalcif 0 Yes 1000U Take 1,000 [facility] edmar, 9-22 Units by ity of vitamin D3, 10:41: mouth [place] 25 mcg 15 daily. Medical (1,000 Branch unit) tablet CRANBERRY Yes Take by [facility] rs FRUIT 06-17 mouth ity of EXTRACT 10:41: daily. [place] (CRANBERRY 15 Medical ORAL) Branch CALCIUM Yes Take by Univers ORAL 06-17 mouth ity of 10:41: daily. [place] 15 Medical Branch DOCOSAHEXAN Yes 1000mg Take 1,000 [facility] OIC 9-22 mg by ity of ACID/EPA 10:41: mouth [place] (FISH OIL 15 daily. Medical ORAL) Branch BIOTIN ORAL Yes Take by Uni vers 06-17 mouth. ity of 10:41: [place] [address] Medical Branch FOLIC ACID Yes Take by Univ ers ORAL - mouth ity of 10:41: daily. [place] 15 Medical Branch MULTIVIT Yes Take by Univer s &MINERALS/F 06-17 mouth. ity of ERROUS FUM 10:41: [place] (MULTI 15 Medical VITAMIN Branch ORAL) METHYLCELLU 0 Yes Univer s LOSE (FIBER 9-22 ity of THERAPY 10:41: [facility]) Medical Branch vitamin C 0 Yes 1000mg [...] - mouth ity of EXTRACT 10:41: daily. [place] (CRANBERRY 15 Medical ORAL) Branch CALCIUM Yes Take by Univers ORAL - mouth ity of 10:41: daily. [place] [address] Medical Branch DOCOSAHEXAN Yes 1000mg Take 1,000 [facility] OIC 9-22 mg by ity of ACID/EPA 10:41: mouth [place] (FISH OIL 15 daily. Medical ORAL) Branch BIOTIN ORAL Yes Take by Uni vers 06-17 mouth. ity of 10:41: [place] [address] Medical Branch FOLIC ACID Yes Take by Univ ers ORAL - mouth ity of 10:41: daily. [place] [address] Medical Branch MULTIVIT Yes [facility] &[facility]/F 06-17 mouth. ity of ERROUS FUM 10:41: [place] (MULTI 15 Medical VITAMIN Branch ORAL) METHYLCELLU Yes [facility] (FIBER 06-17 ity of THERAPY 10:41: [facility]) Medical Branch vitamin C Yes 1000mg Take 1,000 [facility] with derrell 9-22 mg by ity of hips 1,000 10:41: mouth [place] mg tablet 15 daily. Medical Branch cholecalcif Yes 1000U Take 1,000 [facility] edmar, 9-22 Units by ity of vitamin D3, 10:41: mouth [place] 25 mcg 15 daily. Medical (1,000 Branch unit) tablet CRANBERRY Yes Take [facility]UIT - mouth ity of EXTRACT 10:41: daily. [place] (CRANBERRY 15 Medical ORAL) Branch CALCIUM Yes Take by Univers ORAL 9-22 mouth ity of 10:41: daily. [place] [address] Medical Branch DOCOSAHEXAN Yes 1000mg Take 1,000 [facility] OIC 9-22 mg by ity of ACID/EPA 10:41: mouth [place] (FISH OIL 15 daily. Medical ORAL) Branch BIOTIN ORAL Yes Take by Uni vers - mouth. ity of 10:41: [place] [address] Medical Branch FOLIC ACID Yes Take by Univ ers ORAL 9-22 mouth ity of 10:41: daily. [place] [address] Medical Branch MULTIVIT 2022-0 Yes Take by Univer s &MINERALS/F - mouth. ity of ERROUS FUM 10:41: [place] (MULTI 15 Medical VITAMIN Branch ORAL) METHYLCELLU 0 Yes Univer s LOSE (FIBER - ity of THERAPY 10:41: [facility]) 15 Medical Branch vitamin C [...] - mouth ity of EXTRACT 10:41: daily. [place] (CRANBERRY 15 Medical ORAL) Branch CALCIUM Yes Take by Univers ORAL - mouth ity of 10:41: daily. [place] 15 Medical Branch DOCOSAHEXAN Yes 1000mg Take 1,000 [facility] OIC 9-22 mg by ity of ACID/EPA 10:41: mouth [place] (FISH OIL 15 daily. Medical ORAL) Branch BIOTIN ORAL Yes Take by Uni vers - mouth. ity of 10:41: [place] [address] Medical Branch FOLIC ACID Yes Take by Univ ers ORAL - mouth ity of 10:41: daily. [place] [address] Medical Branch MULTIVIT Yes Take by Univer s &MINERALS/F - mouth. ity of ERROUS FUM 10:41: [place] (MULTI 15 Medical VITAMIN Branch ORAL) METHYLCELLU 0 Yes Univer s LOSE (FIBER -22 ity of THERAPY 10:41: [facility]) Medical Branch vitamin C Yes 1000mg Take [...] 9- mouth ity of EXTRACT 10:41: daily. [place] (CRANBERRY 15 Medical ORAL) Branch CALCIUM Yes Take by Univers ORAL 9- mouth ity of 10:41: daily. [place] [address] Medical Branch DOCOSAHEXAN Yes 1000mg Take 1,000 [facility] OIC 9-22 mg by ity of ACID/EPA 10:41: mouth [place] (FISH OIL 15 daily. Medical ORAL) Branch BIOTIN ORAL Yes Take by Uni vers 06-17 mouth. ity of 10:41: [place] [address] Medical Branch FOLIC ACID Yes Take by Univ ers ORAL - mouth ity of 10:41: daily. [place] [address] Medical Branch MULTIVIT Yes Take by Univer s &MINERALS/F 06-17 mouth. ity of ERROUS FUM 10:41: [place] (MULTI 15 Medical VITAMIN Branch ORAL) METHYLCELLU Yes [facility] (FIBER 06-17 ity of THERAPY 10:41: [facility]) Medical Branch vitamin C Yes 1000mg Take [...] - mouth ity of EXTRACT 10:41: daily. [place] (CRANBERRY 15 Medical ORAL) Branch CALCIUM Yes Take by Univers ORAL - mouth ity of 10:41: daily. [place] [address] Medical Branch DOCOSAHEXAN Yes 1000mg Take 1,000 [facility] OIC 9-22 mg by ity of ACID/EPA 10:41: mouth [place] (FISH OIL 15 daily. Medical ORAL) Branch BIOTIN ORAL Yes Take by Uni vers - mouth. ity of 10:41: [place] [address] Medical Branch FOLIC ACID Yes Take by Univ ers ORAL - mouth ity of 10:41: daily. [place] [address] Medical Branch MULTIVIT Yes Take by Univer s &MINERALS/F 06-17 mouth. ity of ERROUS FUM 10:41: [place] (MULTI 15 Medical VITAMIN Branch ORAL) METHYLCELLU 2021-0 Yes Univer s LOSE (FIBER 9-22 ity of THERAPY 10:41: [facility]) 15 Medical Branch vitamin C [...] - mouth ity of EXTRACT 10:41: daily. [place] (CRANBERRY 15 Medical ORAL) Branch CALCIUM Yes Take by Univers ORAL - mouth ity of 10:41: daily. [place] [address] Medical Branch DOCOSAHEXAN Yes 1000mg Take 1,000 [facility] OIC 9-22 mg by ity of ACID/EPA 10:41: mouth [place] (FISH OIL 15 daily. Medical ORAL) Branch BIOTIN ORAL Yes Take by Uni vers - mouth. ity of 10:41: [place] [address] Medical Branch FOLIC ACID Yes Take by Univ ers ORAL - mouth ity of 10:41: daily. [place] [place] [address] Medical Branch MULTIVIT Yes Take by Univer s &MINERALS/F - mouth. ity of ERROUS FUM 10:41: [place] (MULTI 15 Medical VITAMIN Branch ORAL) METHYLCELLU 2021-0 Yes Univer s LOSE (FIBER 9-22 ity of THERAPY 10:41: [facility]) Medical Branch vitamin C Yes 1000mg Take [...] - mouth ity of EXTRACT 10:41: daily. [place] (CRANBERRY 15 Medical ORAL) Branch CALCIUM 2022-0 Yes Take by Univers ORAL 9-22 mouth ity of 10:41: daily. [place] 15 Medical Branch DOCOSAHEXAN Yes 1000mg Take 1,000 [facility] OIC 9-22 mg by ity of ACID/EPA 10:41: mouth [place] (FISH OIL 15 daily. Medical ORAL) Branch BIOTIN ORAL Yes Take by Uni vers 9-22 mouth. ity of 10:41: [place] 15 Medical Branch FOLIC ACID 0 Yes Take by Univ ers ORAL 9- mouth ity of 10:41: daily. [place] 15 Medical Branch MULTIVIT 0 Yes Take by Univer s &MINERALS/F - mouth. ity of ERROUS FUM 10:41: [place] (MULTI 15 Medical VITAMIN Branch ORAL) METHYLCELLU 0 Yes Univer s LOSE (FIBER - ity of THERAPY 10:41: [place] [id number] Medical Branch vitamin C Yes 1000mg Take [...] - mouth ity of EXTRACT 10:41: daily. [place] (CRANBERRY 15 Medical ORAL) Branch CALCIUM Yes Take by Univers ORAL 9- mouth ity of 10:41: daily. [place] 15 Medical Branch DOCOSAHEXAN Yes 1000mg Take 1,000 [facility] OIC 9-22 mg by ity of ACID/EPA 10:41: mouth [place] (FISH OIL 15 daily. Medical ORAL) Branch BIOTIN ORAL Yes Take by Uni vers 9-22 mouth. ity of 10:41: [place] [address] Medical Branch FOLIC ACID 0 Yes Take by Univ ers ORAL 9-22 mouth ity of 10:41: daily. [place] [address] Medical Branch MULTIVIT 0 Yes Take by Univer s &MINERALS/F - mouth. ity of ERROUS FUM 10:41: [place] (MULTI 15 Medical VITAMIN Branch ORAL) METHYLCELLU 2021-0 Yes Univer s LOSE (FIBER 9-22 ity of THERAPY 10:41: [facility]) 15 Medical Branch vitamin C [...] 06-17 mouth ity of EXTRACT 10:41: daily. [place] (CRANBERRY 15 Medical ORAL) Branch CALCIUM Yes Take by Univers ORAL 06-17 mouth ity of 10:41: daily. [place] [address] Medical Branch DOCOSAHEXAN Yes 1000mg Take 1,000 [facility] OIC 9-22 mg by ity of ACID/EPA 10:41: mouth [place] (FISH OIL 15 daily. Medical ORAL) Branch BIOTIN ORAL Yes Take by Uni vers 06-17 mouth. ity of 10:41: [place] [address] Medical Branch FOLIC ACID Yes Take by Univ ers ORAL 06-17 mouth ity of 10:41: daily. [place] [address] Medical Branch MULTIVIT Yes Take by Univer s &MINERALS/F 06-17 mouth. ity of ERROUS FUM 10:41: [place] (MULTI 15 Medical VITAMIN Branch ORAL) METHYLCELLU 0 Yes Univer s LOSE (FIBER - ity of THERAPY 10:41: [facility]) 15 Medical Branch vitamin C [...] - mouth ity of EXTRACT 10:41: daily. [place] (CRANBERRY 15 Medical ORAL) Branch CALCIUM Yes Take by Univers ORAL - mouth ity of 10:41: daily. [place] 15 Medical Branch DOCOSAHEXAN Yes 1000mg Take 1,000 [facility] OIC 9-22 mg by ity of ACID/EPA 10:41: mouth [place] (FISH OIL 15 daily. Medical ORAL) Branch BIOTIN ORAL Yes Take by Uni vers - mouth. ity of 10:41: [place] 15 Medical Branch FOLIC ACID Yes Take by Univ ers ORAL 9- mouth ity of 10:41: daily. [place] 15 Medical Branch MULTIVIT Yes Take by Univer s &MINERALS/F - mouth. ity of ERROUS FUM 10:41: [place] (MULTI 15 Medical VITAMIN Branch ORAL) METHYLCELLU Yes Univer s LOSE (FIBER - ity of THERAPY 10:41: [facility]) Medical Branch vitamin C Yes 1000mg Take [...] - mouth ity of EXTRACT 10:41: daily. [place] (CRANBERRY 15 Medical ORAL) Branch CALCIUM Yes Take by Univers ORAL - mouth ity of 10:41: daily. [place] Medical Branch DOCOSAHEXAN Yes 1000mg Take 1,000 [facility] OIC 9-22 mg by ity of ACID/EPA 10:41: mouth [place] (FISH OIL 15 daily. Medical ORAL) Branch BIOTIN ORAL Yes Take by Uni vers 9-22 mouth. ity of 10:41: [place] [address] Medical Branch FOLIC ACID Yes Take by Univ ers ORAL 9- mouth ity of 10:41: daily. [place] [address] Medical Branch MULTIVIT Yes Take by Univer s &MINERALS/F - mouth. ity of ERROUS FUM 10:41: [place] (MULTI 15 Medical VITAMIN Branch ORAL) METHYLCELLU 0 Yes Univer s LOSE (FIBER - ity of THERAPY 10:41: [facility]) 15 Medical Branch vitamin C [...] 06-17 mouth ity of EXTRACT 10:41: daily. [place] (CRANBERRY 15 Medical ORAL) Branch CALCIUM Yes Take by Univers ORAL 06-17 mouth ity of 10:41: daily. [place] [address] Medical Branch DOCOSAHEXAN Yes 1000mg Take 1,000 [facility] OIC 9-22 mg by ity of ACID/EPA 10:41: mouth [place] (FISH OIL 15 daily. Medical ORAL) Branch BIOTIN ORAL Yes Take by Uni vers 06-17 mouth. ity of 10:41: [place] [address] Medical Branch FOLIC ACID Yes Take by Univ ers ORAL 06-17 mouth ity of 10:41: daily. [place] [address] Medical Branch MULTIVIT Yes Take by Univer s &MINERALS/F 06-17 mouth. ity of ERROUS FUM 10:41: [place] (MULTI 15 Medical VITAMIN Branch ORAL) METHYLCELLU Yes Univer s LOSE (FIBER 06-17 ity of THERAPY 10:41: [facility]) 15 Medical Branch vitamin C [...] - mouth ity of EXTRACT 10:41: daily. [place] (CRANBERRY 15 Medical ORAL) Branch CALCIUM Yes Take by Univers ORAL - mouth ity of 10:41: daily. [place] 15 Medical Branch DOCOSAHEXAN Yes 1000mg Take 1,000 [facility] OIC 9-22 mg by ity of ACID/EPA 10:41: mouth [place] (FISH OIL 15 daily. Medical ORAL) Branch BIOTIN ORAL 2021-0 Yes Take by Uni vers 9-22 mouth. ity of 10:41: [place] 15 Medical Branch SUMAtriptan 2021-0 Yes [id number] 50mg Take 1 [facility] 50 mg 9-22 tablet by ity of tablet 00:00: mouth as [place] 00 needed for Medical Migraine. Branch topiramate 2021-0 Yes [id number] 75mg Take 3 [facility] 25 mg 9-22 tablets by ity of tablet 00:00: mouth in [place] 00 the Medical morning Branch and 3 tablets in the evening. SUMAtriptan 2-0 Yes [id number] 50mg Take 1 [facility] 50 mg 9-22 tablet by ity of tablet 00:00: mouth as [place] 00 needed for Medical Migraine. Branch topiramate 2021-0 Yes [id number] 75mg Take 3 [facility] 25 mg 9-22 tablets by ity of tablet 00:00: mouth in [place] 00 the Medical morning Branch and 3 tablets in the evening. SUMAtriptan 2-0 Yes [id number] 50mg Take 1 [facility] 50 mg 9-22 tablet by ity of tablet 00:00: mouth as [place] 00 needed for Medical Migraine. Branch topiramate 2021-0 Yes [id number] 75mg Take 3 [facility] 25 mg 9-22 tablets by ity of tablet 00:00: mouth in [place] 00 the Medical morning Branch and 3 tablets in the evening. SUMAtriptan 2-0 Yes [id number] 50mg Take 1 [facility] 50 mg 9-22 tablet by ity of tablet 00:00: mouth as [place] 00 needed for Medical Migraine. Branch topiramate 2-0 Yes [id number] 75mg Take 3 [facility] 25 mg 9-22 tablets by ity of tablet 00:00: mouth in [place] 00 the Medical morning Branch and 3 tablets in the evening. topiramate 2022-0 Yes [id number] 75mg Take 3 [facility] 25 mg 9-22 tablets by ity of tablet 00:00: mouth in [place] 00 the Medical morning Branch and 3 tablets in the evening. topiramate 2022-0 Yes [id number] 75mg Take 3 [facility] 25 mg 9-22 tablets by ity of tablet 00:00: mouth in [place] 00 the Medical morning Branch and 3 tablets in the evening. topiramate 2021-0 Yes [id number] 75mg Take 3 [facility] 25 mg 9-22 tablets by ity of tablet 00:00: mouth in [place] 00 the Medical morning Branch and 3 tablets in the evening. topiramate 2021-0 Yes [id number] 75mg Take 3 [facility] 25 mg 9-22 tablets by ity of tablet 00:00: mouth in [place] 00 the Medical morning Branch and 3 tablets in the evening. topiramate 2021-0 Yes [id number] 75mg Take 3 [facility] 25 mg 9-22 tablets by ity of tablet 00:00: mouth in [place] 00 the Medical morning Branch and 3 tablets in the evening. topiramate 2021-0 Yes [id number] 75mg Take 3 [facility] 25 mg 9-22 tablets by ity of tablet 00:00: mouth in [place] 00 the Medical morning Branch and 3 tablets in the evening. topiramate 2021-0 2021- No [id number] 75mg Take 3 [facility] 25 mg 9-22 10-13 tablets by ity of tablet 00:00: 00:00 mouth in [place] 00 :00 the Medical morning Branch and 3 tablets in the evening. SUMAtriptan 2021-0 2021- No [id number] 50mg Take 1 Univers 50 mg 9-22 09-30 tablet by ity of tablet 00:00: 00:00 mouth as [place] 00 :00 needed for Medical Migraine. Branch pantoprazol 2021-0 Yes [id number] 40mg Take 1 Univers e 40 mg EC 9-16 tablet by ity of tablet 00:00: mouth in [place] 00 the Medical morning. Branch Simethicone 2021-0 Yes [id number] 125mg Take 1 [facility] 125 mg 9-16 capsule by ity of 00:00: mouth [place] 00 after Medical meals and Branch at bedtime as needed for Gas (Per bowel prep). pantoprazol 2021-0 Yes [id number] 40mg Take 1 Univers e 40 mg EC 9-16 tablet by ity of tablet 00:00: mouth in [place] 00 the Medical morning. Branch Simethicone 2021-0 Yes [id number] 125mg Take 1 [facility] 125 mg 9-16 capsule by ity of 00:00: mouth [place] 00 after Medical meals and Branch at bedtime as needed for Gas (Per bowel prep). pantoprazol 2021-0 Yes [id number] 40mg Take 1 Univers e 40 mg EC 9-16 tablet by ity of tablet 00:00: mouth in [place] 00 the Medical morning. Branch Simethicone 2021-0 Yes [id number] 125mg Take 1 [facility] 125 mg 9-16 capsule by ity of 00:00: mouth [place] 00 after Medical meals and Branch at bedtime as needed for Gas (Per bowel prep). pantoprazol 2021-0 Yes [id number] 40mg Take 1 Univers e 40 mg EC 9-16 tablet by ity of tablet 00:00: mouth in [place] 00 the Medical morning. Branch Simethicone 0 Yes [id number] 125mg Take 1 [facility] 125 mg 9-16 capsule by ity of 00:00: mouth [place] 00 after Medical meals and Branch at bedtime as needed for Gas (Per bowel prep). pantoprazol 0 Yes [id number] 40mg Take 1 Univers e 40 mg EC 9-16 tablet by ity of tablet 00:00: mouth in [place] 00 the Medical morning. Branch Simethicone 0 Yes [id number] 125mg Take 1 [facility] 125 mg 9-16 capsule by ity of 00:00: mouth [place] 00 after Medical meals and Branch at bedtime as needed for Gas (Per bowel prep). pantoprazol 0 Yes [id number] 40mg Take 1 Univers e 40 mg EC 9-16 tablet by ity of tablet 00:00: mouth in [place] 00 the Medical morning. Branch Simethicone 0 Yes [id number] 125mg Take 1 [facility] 125 mg 9-16 capsule by ity of 00:00: mouth [place] 00 after Medical meals and Branch at bedtime as needed for Gas (Per bowel prep). pantoprazol 2021-0 Yes [id number] 40mg Take 1 Univers e 40 mg EC 9-16 tablet by ity of tablet 00:00: mouth in [place] 00 the Medical morning. Branch Simethicone 0 Yes [id number] 125mg Take 1 [facility] 125 mg 9-16 capsule by ity of 00:00: mouth [place] 00 after Medical meals and Branch at bedtime as needed for Gas (Per bowel prep). pantoprazol 2021-0 Yes [id number] 40mg Take 1 Univers e 40 mg EC 9-16 tablet by ity of tablet 00:00: mouth in [place] 00 the Medical morning. Branch Simethicone 2021-0 Yes [id number] 125mg Take 1 [facility] 125 mg 9-16 capsule by ity of 00:00: mouth [place] 00 after Medical meals and Branch at bedtime as needed for Gas (Per bowel prep). pantoprazol 2021-0 Yes [id number] 40mg Take 1 Univers e 40 mg EC 9-16 tablet by ity of tablet 00:00: mouth in [place] 00 the Medical morning. Branch Simethicone 2021-0 Yes [id number] 125mg Take 1 [facility] 125 mg 9-16 capsule by ity of 00:00: mouth [place] 00 after Medical meals and Branch at bedtime as needed for Gas (Per bowel prep). pantoprazol 2021-0 Yes [id number] 40mg Take 1 [facility] e 40 mg EC 9-16 tablet by ity of tablet 00:00: mouth in [place] 00 the Medical morning. Branch Simethicone 2021-0 Yes [id number] 125mg Take 1 [facility] 125 mg 9-16 capsule by ity of 00:00: mouth [place] 00 after Medical meals and Branch at bedtime as needed for Gas (Per bowel prep). pantoprazol 2021-0 Yes [id number] 40mg Take 1 [facility] e 40 mg EC 9-16 tablet by ity of tablet 00:00: mouth in [place] 00 the Medical morning. Branch Simethicone 2021-0 Yes [id number] 125mg Take 1 [facility] 125 mg 9-16 capsule by ity of 00:00: mouth [place] 00 after Medical meals and Branch at bedtime as needed for Gas (Per bowel prep). pantoprazol 2021-0 Yes [id number] 40mg Take 1 [facility] e 40 mg EC 9-16 tablet by ity of tablet 00:00: mouth in [place] 00 the Medical morning. Branch Simethicone 2021-0 Yes [id number] 125mg Take 1 [facility] 125 mg 9-16 capsule by ity of 00:00: mouth [place] 00 after Medical meals and Branch at bedtime as needed for Gas (Per bowel prep). pantoprazol 2021-0 Yes [id number] 40mg Take 1 Univers e 40 mg EC 9-16 tablet by ity of tablet 00:00: mouth in [place] 00 the Medical morning. Branch Simethicone 2021-0 Yes [id number] 125mg Take 1 [facility] 125 mg 9-16 capsule by ity of 00:00: mouth [place] 00 after Medical meals and Branch at bedtime as needed for Gas (Per bowel prep). pantoprazol Yes [id number] 40mg Take 1 Univers e 40 mg EC 9-16 tablet by ity of tablet 00:00: mouth in [place] 00 the Medical morning. Branch Simethicone Yes [id number] 125mg Take 1 [facility] 125 mg 9-16 capsule by ity of 00:00: mouth [place] 00 after Medical meals and Branch at bedtime as needed for Gas (Per bowel prep). pantoprazol Yes [id number] 40mg Take 1 Univers e 40 mg EC 9-16 tablet by ity of tablet 00:00: mouth in [place] 00 the Medical morning. Branch Simethicone 0 Yes [id number] 125mg Take 1 [facility] 125 mg 9-16 capsule by ity of 00:00: mouth [place] 00 after Medical meals and Branch at bedtime as needed for Gas (Per bowel prep). Simethicone Yes [id number] 125mg Take 1 [facility] 125 mg 9-16 capsule by ity of 00:00: mouth [place] 00 after Medical meals and Branch at bedtime as needed for Gas (Per bowel prep). Simethicone Yes [id number] 125mg Take 1 [facility] 125 mg 9-16 capsule by ity of 00:00: mouth [place] 00 after Medical meals and Branch at bedtime as needed for Gas (Per bowel prep). Simethicone 2021- No [id number] 125mg Take 1 Univers 125 mg 9-16 11-01 capsule by ity of 00:00: 00:00 mouth [place] 00 :00 after Medical meals and Branch at bedtime as needed for Gas (Per bowel prep). Simethicone 2021- No [id number] 125mg Take 1 Univers 125 mg 9-16 11-01 capsule by ity of 00:00: 00:00 mouth [place] 00 :00 after Medical meals and Branch at bedtime as needed for Gas (Per bowel prep). pantoprazol 2021- No [id number] 40mg Take 1 Univers e 40 mg EC 9-16 10-13 tablet by ity of tablet 00:00: 00:00 mouth in [place] 00 :00 the Medical morning. Branch SUMAtriptan 2022-0 Yes [id number] TAKE 1 [facility] 50 mg 9-06 TABLET BY ity of tablet 00:00: MOUTH [place] 00 NEEDED FOR Medical MIGRAINE Branch HEADACHE ( MAY REPEAT IN 2 HOURS ) SUMAtriptan 2022-0 Yes [id number] TAKE 1 [facility] 50 mg 9-06 TABLET BY ity of tablet 00:00: MOUTH [place] 00 NEEDED FOR Medical MIGRAINE Branch HEADACHE ( MAY REPEAT IN 2 HOURS ) SUMAtriptan 2022-0 Yes [id number] TAKE 1 [facility] 50 mg 9-06 TABLET BY ity of tablet 00:00: MOUTH [place] 00 NEEDED FOR Medical MIGRAINE Branch HEADACHE ( MAY REPEAT IN 2 HOURS ) SUMAtriptan 2022-0 Yes [id number] TAKE 1 [facility] 50 mg 9-06 TABLET BY ity of tablet 00:00: MOUTH [place] 00 NEEDED FOR Medical MIGRAINE Branch HEADACHE ( MAY REPEAT IN 2 HOURS ) SUMAtriptan 2022-0 Yes [id number] TAKE 1 [facility] 50 mg 9-06 TABLET BY ity of tablet 00:00: MOUTH [place] 00 NEEDED FOR Medical MIGRAINE Branch HEADACHE ( MAY REPEAT IN 2 HOURS ) SUMAtriptan 2022-0 Yes [id number] TAKE 1 [facility] 50 mg 9-06 TABLET BY ity of tablet 00:00: MOUTH [place] 00 NEEDED FOR Medical MIGRAINE Branch HEADACHE ( MAY REPEAT IN 2 HOURS ) SUMAtriptan 2022-0 Yes [id number] TAKE 1 [facility] 50 mg 9-06 TABLET BY ity of tablet 00:00: MOUTH [place] 00 NEEDED FOR Medical MIGRAINE Branch HEADACHE ( MAY REPEAT IN 2 HOURS ) SUMAtriptan 2022-0 Yes [id number] TAKE 1 [facility] 50 mg 9-06 TABLET BY ity of tablet 00:00: MOUTH [place] 00 NEEDED FOR Medical MIGRAINE Branch HEADACHE ( MAY REPEAT IN 2 HOURS ) SUMAtriptan 2022-0 Yes [id number] TAKE 1 [facility] 50 mg 9-06 TABLET BY ity of tablet 00:00: MOUTH [place] 00 NEEDED FOR Medical MIGRAINE Branch HEADACHE ( MAY REPEAT IN 2 HOURS ) SUMAtriptan 2022-0 Yes [id number] TAKE 1 [facility] 50 mg 9-06 TABLET BY ity of tablet 00:00: MOUTH [place] 00 NEEDED FOR Medical MIGRAINE Branch HEADACHE ( MAY REPEAT IN 2 HOURS ) SUMAtriptan 2022-0 Yes [id number] TAKE 1 [facility] 50 mg 9-06 TABLET BY ity of tablet 00:00: MOUTH [place] 00 NEEDED FOR Medical MIGRAINE Branch HEADACHE ( MAY REPEAT IN 2 HOURS ) SUMAtriptan 2021-0 Yes [id number] TAKE 1 [facility] 50 mg 9-06 TABLET BY ity of tablet 00:00: MOUTH [place] 00 NEEDED FOR Medical MIGRAINE Branch HEADACHE ( MAY REPEAT IN 2 HOURS ) SUMAtriptan 2021-0 2021- No [id number] TAKE 1 [facility] 50 mg 9-06 -22 TABLET BY ity of tablet 00:00: 00:00 MOUTH [place] 00 :00 NEEDED FOR Medical MIGRAINE Branch HEADACHE ( MAY REPEAT IN 2 HOURS ) SUMAtriptan 2021-0 2021- No [id number] TAKE 1 [facility] 50 mg 9-06 -22 TABLET BY ity of tablet 00:00: 00:00 MOUTH [place] 00 :00 NEEDED FOR Medical MIGRAINE Branch HEADACHE ( MAY REPEAT IN 2 HOURS ) SUMAtriptan 2021-0 2021- No [id number] TAKE 1 [facility] 50 mg 9-06 - TABLET BY ity of tablet 00:00: 00:00 MOUTH [place] 00 :00 NEEDED FOR Medical MIGRAINE Branch HEADACHE ( MAY REPEAT IN 2 HOURS ) topiramate 2021-0 Yes [id number] Take 2 [facility] 25 mg 9-01 tablets by ity of tablet 00:00: mouth [place] 00 twice Medical daily Branch topiramate 2-0 Yes [id number] Take 2 [facility] 25 mg 9-01 tablets by ity of tablet 00:00: mouth [place] 00 twice Medical daily Branch topiramate 2022-0 Yes [id number] Take 2 [facility] 25 mg 9-01 tablets by ity of tablet 00:00: mouth [place] 00 twice Medical daily Branch topiramate 2022-0 Yes [id number] Take 2 [facility] 25 mg 9-01 tablets by ity of tablet 00:00: mouth [place] 00 twice Medical daily Branch topiramate 2022-0 Yes [id number] Take 2 [facility] 25 mg 9-01 tablets by ity of tablet 00:00: mouth [place] 00 twice Medical daily Branch topiramate 2022-0 Yes [id number] Take 2 [facility] 25 mg 9-01 tablets by ity of tablet 00:00: mouth [place] 00 twice Medical daily Branch topiramate 2022-0 Yes [id number] Take 2 [facility] 25 mg 9-01 tablets by ity of tablet 00:00: mouth [place] 00 twice Medical daily Branch topiramate 2-0 Yes [id number] Take 2 [facility] 25 mg 9-01 tablets by ity of tablet 00:00: mouth [place] 00 twice Medical daily Branch topiramate 2-0 Yes [id number] Take 2 [facility] 25 mg 9-01 tablets by ity of tablet 00:00: mouth [place] 00 twice Medical daily Branch topiramate 2-0 Yes [id number] Take 2 [facility] 25 mg 9-01 tablets by ity of tablet 00:00: mouth [place] 00 twice Medical daily Branch topiramate 2-0 Yes [id number] Take 2 [facility] 25 mg 9-01 tablets by ity of tablet 00:00: mouth 00 twice Medical daily Branch topiramate 2-0 Yes [id number] Take 2 [facility] 25 mg 9-01 tablets by ity of tablet 00:00: mouth 00 twice Medical daily Branch topiramate 2-0 Yes [id number] Take 2 [facility] 25 mg 9-01 tablets by ity of tablet 00:00: mouth [place] 00 twice Medical daily Branch topiramate 2-0 Yes [id number] Take 2 [facility] 25 mg 9-01 tablets by ity of tablet 00:00: mouth 00 twice Medical daily Branch topiramate 2-0 Yes [id number] Take 2 [facility] 25 mg 9-01 tablets by ity of tablet 00:00: mouth 00 twice Medical daily Branch topiramate 2022-0 2- No [id number] Take 2 [facility] 25 mg 9-01 09-22 tablets by ity of tablet 00:00: 00:00 mouth [place] 00 :00 twice Medical daily Branch topiramate 2022-0 2022- No [id number] Take 2 [facility] 25 mg 9-01 09-22 tablets by ity of tablet 00:00: 00:00 mouth [place] 00 :00 twice Medical daily Branch topiramate 2022-0 2- No [id number] Take 2 [facility] 25 mg 9-01 09-22 tablets by ity of tablet 00:00: 00:00 mouth [place] 00 :00 twice Medical daily Branch methocarbam 2-0 Yes [id number] 500mg Take 1 Univers oL 500 mg 8-11 tablet by ity o f tablet 00:00: mouth 4 [place] 00 (four) Medical times Branch daily as needed for Pain (scale 7-10). methocarbam 2022-0 Yes [id number] 500mg Take 1 Univers oL 500 mg 8-11 tablet by ity o f tablet 00:00: mouth (four) Medical times Branch daily as needed for Pain (scale 7-10). methocarbam 2022-0 Yes [id number] 500mg Take 1 [facility] oL 500 mg 8-11 tablet by ity o f tablet 00:00: mouth (four) Medical times Branch daily as needed for Pain (scale 7-10). methocarbam 2022-0 Yes [id number] 500mg Take 1 [facility] oL 500 mg 8-11 tablet by ity o f tablet 00:00: mouth (four) Medical times Branch daily as needed for Pain (scale 7-10). methocarbam 2022-0 Yes [id number] 500mg Take 1 [facility] oL 500 mg 8-11 tablet by ity o f tablet 00:00: mouth (four) Medical times Branch daily as needed for Pain (scale 7-10). methocarbam 2022-0 Yes [id number] 500mg Take 1 [facility] oL 500 mg 8-11 tablet by ity o f tablet 00:00: mouth (four) Medical times Branch daily as needed for Pain (scale 7-10). methocarbam 2022-0 Yes [id number] 500mg Take 1 [facility] oL 500 mg 8-11 tablet by ity o f tablet 00:00: mouth (four) Medical times Branch daily as needed for Pain (scale 7-10). methocarbam 2022-0 Yes [id number] 500mg Take 1 [facility] oL 500 mg 8-11 tablet by ity o f tablet 00:00: mouth (four) Medical times Branch daily as needed for Pain (scale 7-10). methocarbam 2022-0 Yes [id number] 500mg Take 1 [facility] oL 500 mg 8-11 tablet by ity o f tablet 00:00: mouth (four) Medical times Branch daily as needed for Pain (scale 7-10). methocarbam 2022-0 Yes [id number] 500mg Take 1 [facility] oL 500 mg 8-11 tablet by ity o f tablet 00:00: mouth (four) Medical times Branch daily as needed for Pain (scale 7-10). methocarbam 2022-0 Yes [id number] 500mg Take 1 [facility] oL 500 mg 8-11 tablet by ity o f tablet 00:00: mouth (four) Medical times Branch daily as needed for Pain (scale 7-10). methocarbam 2022-0 Yes [id number] 500mg Take 1 [facility] oL 500 mg 8-11 tablet by ity o f tablet 00:00: mouth (four) Medical times Branch daily as needed for Pain (scale 7-10). methocarbam 2022-0 Yes [id number] 500mg Take 1 [facility] oL 500 mg 8-11 tablet by ity o f tablet 00:00: mouth (four) Medical times Branch daily as needed for Pain (scale 7-10). methocarbam 2022-0 Yes [id number] 500mg Take 1 [facility] oL 500 mg 8-11 tablet by ity o f tablet 00:00: mouth (four) Medical times Branch daily as needed for Pain (scale 7-10). methocarbam 2022-0 Yes [id number] 500mg Take 1 [facility] oL 500 mg 8-11 tablet by ity o f tablet 00:00: mouth (four) Medical times Branch daily as needed for Pain (scale 7-10). methocarbam 2022-0 Yes [id number] 500mg Take 1 [facility] oL 500 mg 8-11 tablet by ity o f tablet 00:00: mouth (four) Medical times Branch daily as needed for Pain (scale 7-10). methocarbam 2022-0 Yes [id number] 500mg Take 1 [facility] oL 500 mg 8-11 tablet by ity o f tablet 00:00: mouth (four) Medical times Branch daily as needed for Pain (scale 7-10). methocarbam 2022-0 Yes [id number] 500mg Take 1 [facility] oL 500 mg 8-11 tablet by ity o f tablet 00:00: mouth (four) Medical times Branch daily as needed for Pain (scale 7-10). methocarbam 2022-0 Yes [id number] 500mg Take 1 [facility] oL 500 mg 8-11 tablet by ity o f tablet 00:00: mouth (four) Medical times Branch daily as needed for Pain (scale 7-10). methocarbam 2022-0 Yes [id number] 500mg Take 1 [facility] oL 500 mg 8-11 tablet by ity o f tablet 00:00: mouth (four) Medical times Branch daily as needed for Pain (scale 7-10). methocarbam 2022-0 Yes [id number] 500mg Take 1 [facility] oL 500 mg 8-11 tablet by ity o f tablet 00:00: mouth (four) Medical times Branch daily as needed for Pain (scale 7-10). methocarbam 2022-0 Yes [id number] 500mg Take 1 [facility] oL 500 mg 8-11 tablet by ity o f tablet 00:00: mouth (four) Medical times Branch daily as needed for Pain (scale 7-10). methocarbam 2022-0 Yes [id number] 500mg Take 1 [facility] oL 500 mg 8-11 tablet by ity o f tablet 00:00: mouth (four) Medical times Branch daily as needed for Pain (scale 7-10). methocarbam 2-0 Yes [id number] 500mg Take 1 [facility] oL 500 mg 8-11 tablet by ity o f tablet 00:00: mouth (four) Medical times Branch daily as needed for Pain (scale 7-10). methocarbam 2022-0 Yes [id number] 500mg Take 1 [facility] oL 500 mg 8-11 tablet by ity o f tablet 00:00: mouth (four) Medical times Branch daily as needed for Pain (scale 7-10). methocarbam 2022-0 Yes [id number] 500mg Take 1 [facility] oL 500 mg 8-11 tablet by ity o f tablet 00:00: mouth (four) Medical times Branch daily as needed for Pain (scale 7-10). methocarbam 2022-0 Yes [id number] 500mg Take 1 [facility] oL 500 mg 8-11 tablet by ity o f tablet 00:00: mouth (four) Medical times Branch daily as needed for Pain (scale 7-10). methocarbam 2022-0 Yes [id number] 500mg Take 1 [facility] oL 500 mg 8-11 tablet by ity o f tablet 00:00: mouth (four) Medical times Branch daily as needed for Pain (scale 7-10). methocarbam 2-0 Yes [id number] 500mg Take 1 [facility] oL 500 mg 8-11 tablet by ity o f tablet 00:00: mouth (four) Medical times Branch daily as needed for Pain (scale 7-10). methocarbam 2-0 Yes [id number] 500mg Take 1 [facility] oL 500 mg 8-11 tablet by ity o f tablet 00:00: mouth (four) Medical times Branch daily as needed for Pain (scale 7-10). methocarbam 2-0 Yes [id number] 500mg Take 1 [facility] oL 500 mg 8-11 tablet by ity o f tablet 00:00: mouth (four) Medical times Branch daily as needed for Pain (scale 7-10). methocarbam 2-0 Yes [id number] 500mg Take 1 [facility] o[facility] 500 mg 8-11 tablet by [facility] tablet 00:00: mouth (four) Medical times Branch daily as needed for Pain (scale 7-10). methocarbam 2-0 Yes [id number] 500mg Take 1 [facility] o[facility] 500 mg 8-11 tablet by [facility] tablet 00:00: mouth (four) Medical times Branch daily as needed for Pain (scale 7-10). methocarbam 2-0 Yes [id number] 500mg Take 1 [facility] o[facility] 500 mg 8-11 tablet by [facility] tablet 00:00: mouth (four) Medical times Branch daily as needed for Pain (scale 7-10). methocarbam 2-0 Yes [id number] 500mg Take 1 [facility] oL 500 mg 8-11 tablet by [facility] tablet 00:00: mouth (four) Medical times Branch daily as needed for Pain (scale 7-10). methocarbam 2-0 Yes [id number] 500mg Take 1 [facility] o[facility] 500 mg 8-11 tablet by [facility] tablet 00:00: mouth (four) Medical times Branch daily as needed for Pain (scale 7-10). methocarbam 2-0 Yes [id number] 500mg Take 1 [facility] oL 500 mg 8-11 tablet by [facility] tablet 00:00: mouth (four) Medical times Branch daily as needed for Pain (scale 7-10). methocarbam 2022-0 Yes [id number] 500mg Take 1 [facility] o[facility] 500 mg 8-11 tablet by [facility] tablet 00:00: mouth (four) Medical times Branch daily as needed for Pain (scale 7-10). methocarbam 2-0 Yes [id number] 500mg Take 1 [facility] oL 500 mg 8-11 tablet by [facility] tablet 00:00: mouth (four) Medical times Branch daily as needed for Pain (scale 7-10). methocarbam 2022-0 Yes [id number] 500mg Take 1 [facility] oL 500 mg 8-11 tablet by [facility] tablet 00:00: mouth (four) Medical times Branch daily as needed for Pain (scale 7-10). methocarbam 2-0 Yes [id number] 500mg Take 1 [facility] oL 500 mg 8-11 tablet by [facility] tablet 00:00: mouth (four) Medical times Branch daily as needed for Pain (scale 7-10). methocarbam 2-0 Yes [id number] 500mg Take 1 [facility] o[facility] 500 mg 8-11 tablet by [facility] tablet 00:00: mouth (four) Medical times Branch daily as needed for Pain (scale 7-10). methocarbam 2-0 Yes [id number] 500mg Take 1 [facility] o[facility] 500 mg 8-11 tablet by [facility] tablet 00:00: mouth (four) Medical times Branch daily as needed for Pain (scale 7-10). methocarbam 2-0 Yes [id number] 500mg Take 1 [facility] o[facility] 500 mg 8-11 tablet by [facility] tablet 00:00: mouth (four) Medical times [facility] daily as needed for Pain (scale 7-10). methocarbam 2022-0 Yes [id number] 500mg Take 1 [facility] o[facility] 500 mg 8-11 tablet by [facility] tablet 00:00: mouth (four) Medical times [facility] daily as needed for Pain (scale 7-10). methocarbam 2022-0 Yes [id number] 500mg Take 1 [facility] o[facility] 500 mg 8-11 tablet by [facility] tablet 00:00: mouth (four) Medical times [facility] daily as needed for Pain (scale 7-10). methocarbam 2022-0 Yes [id number] 500mg Take 1 [facility] o[facility] 500 mg 8-11 tablet by [facility] tablet 00:00: mouth (four) Medical times [facility] daily as needed for Pain (scale 7-10). methocarbam 2-0 Yes [id number] 500mg Take 1 [facility] o[facility] 500 mg 8-11 tablet by [facility] tablet 00:00: mouth (four) Medical times [facility] daily as needed for Pain (scale 7-10). methocarbam 2-0 Yes [id number] 500mg Take 1 [facility] o[facility] 500 mg 8-11 tablet by [facility] tablet 00:00: mouth (four) Medical times [facility] daily as needed for Pain (scale 7-10). methocarbam 2-0 Yes [id number] 500mg Take 1 [facility] o[facility] 500 mg 8-11 tablet by [facility] tablet 00:00: mouth (four) Medical times [facility] daily as needed for Pain (scale 7-10). methocarbam 2021-0 Yes [id number] 500mg Take 1 [facility] o[facility] 500 mg 8-11 tablet by [facility] tablet 00:00: mouth (four) Medical times [facility] daily as needed for Pain (scale 7-10). methocarbam 2-0 Yes [id number] 500mg Take 1 [facility] 500 mg 8-11 tablet by [facility] tablet 00:00: mouth (four) Medical times [facility] daily as needed for Pain (scale 7-10). methocarbam 2-0 Yes [id number] 500mg Take 1 [facility] 500 mg 8-11 tablet by [facility] tablet 00:00: mouth (four) Medical times Branch daily as needed for Pain (scale 7-10). methocarbam 2-0 Yes [id number] 500mg Take 1 [facility] o[facility] 500 mg 8-11 tablet by [facility] tablet 00:00: mouth (four) Medical times [facility] daily as needed for Pain (scale 7-10). methocarbam 2-0 Yes [id number] 500mg Take 1 [facility] o[facility] 500 mg 8-11 tablet by [facility] tablet 00:00: mouth (four) Medical times [facility] daily as needed for Pain (scale 7-10). methocarbam 2-0 Yes [id number] 500mg Take 1 [facility] o[facility] 500 mg 8-11 tablet by [facility] tablet 00:00: mouth (four) Medical times [facility] daily as needed for Pain (scale 7-10). methocarbam 0 Yes [id number] 500mg Take 1 [facility] o[facility] 500 mg 8-11 tablet by [facility] tablet 00:00: mouth 00 (four) Medical times Branch daily as needed for Pain (scale 7-10). methocarbam Yes [id number] 500mg Take 1 [facility] o[facility] 500 mg 8-11 tablet by [facility] f tablet 00:00: mouth 00 (four) Medical times Branch daily as needed for Pain (scale 7-10). methocarbam Yes [id number] 500mg Take 1 [facility] o[facility] 500 mg 8-11 tablet by [facility] f tablet 00:00: mouth (four) Medical times [facility] daily as needed for Pain (scale 7-10). methocarbam Yes [id number] 500mg Take 1 [facility] o[facility] 500 mg 8-11 tablet by [facility] f tablet 00:00: mouth (four) Medical times [facility] daily as needed for Pain (scale 7-10). methocarbam 2022- No [id number] 500mg Take 1 [facility] oL 500 mg 8-11 -24 tablet by [facility] tablet 00:00: 00:00 mouth 4 00 :00 (four) Medical times Branch daily as needed for Pain (scale 7-10). methocarbam 2022- No [id number] 500mg Take 1 [facility] o[facility] 500 mg 8-11 -24 tablet by [facility] tablet 00:00: 00:00 mouth 4 00 :00 (four) Medical times Branch daily as needed for Pain (scale 7-10). methocarbam 2022- No [id number] 500mg Take 1 [facility] oL 500 mg 8-11 -24 tablet by [facility] tablet 00:00: 00:00 mouth 4 00 :00 (four) Medical times Branch daily as needed for Pain (scale 7-10). LOSARTAN 50 2021-0 Yes [id number] Take 1 [facility] mg tablet 7-20 tablet by [facility] o f 00:00: mouth 00 twice Medical daily Branch DILTIAZEM 2021-0 Yes [id number] Take 1 [facility] [place] 120 mg 24 7-20 capsule by [facility] capsule 00:00: mouth twice Medical daily Branch LOSARTAN 50 2021-0 Yes [id number] Take 1 [facility] mg tablet 7-20 tablet by [facility] o f 00:00: mouth twice Medical daily Branch DILTIAZEM 2021-0 Yes [id number] Take 1 [facility] [place] 120 mg 24 7-20 capsule by [facility] hr capsule 00:00: mouth twice Medical daily Branch LOSARTAN 50 2021-0 Yes [id number] Take 1 [facility] mg tablet 7-20 tablet by [facility] o f 00:00: mouth twice Medical daily Branch DILTIAZEM 2021-0 Yes [id number] Take 1 [facility] [place] 120 mg 24 7-20 capsule by [facility] hr capsule 00:00: mouth twice Medical daily Branch LOSARTAN 50 2021-0 Yes [id number] Take 1 [facility] mg tablet 7-20 tablet by [facility] o f 00:00: mouth twice Medical daily Branch DILTIAZEM 2021-0 Yes [id number] Take 1 [facility] [place] 120 mg 24 7-20 capsule by [facility] capsule 00:00: mouth twice Medical daily Branch LOSARTAN 50 2021-0 Yes [id number] Take 1 [facility] mg tablet 7-20 tablet by [facility] o f 00:00: mouth twice Medical daily Branch DILTIAZEM 2021-0 Yes [id number] Take 1 [facility] [place] 120 mg 24 7-20 capsule by [facility] hr capsule 00:00: mouth twice Medical daily Branch LOSARTAN 50 2021-0 Yes [id number] Take 1 [facility] mg tablet 7-20 tablet by [facility] o f 00:00: mouth twice Medical daily Branch DILTIAZEM 2021-0 Yes [id number] Take 1 [facility] [place] 120 mg 24 7-20 capsule by [facility] hr capsule 00:00: mouth twice Medical daily Branch LOSARTAN 50 2021-0 Yes [id number] Take 1 [facility] mg tablet 7-20 tablet by [facility] o f 00:00: mouth twice Medical daily Branch DILTIAZEM 2021-0 Yes [id number] Take 1 [facility] [place] 120 mg 24 7-20 capsule by [facility] capsule 00:00: mouth twice Medical daily Branch LOSARTAN 50 2021-0 Yes [id number] Take 1 [facility] mg tablet 7-20 tablet by [facility] o f 00:00: mouth twice Medical daily Branch DILTIAZEM 2021-0 Yes [id number] Take 1 [facility] [place] 120 mg 24 7-20 capsule by [facility] capsule 00:00: mouth twice Medical daily Branch LOSARTAN 50 2021-0 Yes [id number] Take 1 [facility] mg tablet 7-20 tablet by [facility] o f 00:00: mouth twice Medical daily Branch DILTIAZEM 2021-0 Yes [id number] Take 1 [facility] [place] 120 mg 24 7-20 capsule by [facility] capsule 00:00: mouth twice Medical daily Branch LOSARTAN 50 2021-0 Yes [id number] Take 1 [facility] mg tablet 7-20 tablet by [facility] o f 00:00: mouth twice Medical daily Branch DILTIAZEM 2021-0 Yes [id number] Take 1 [facility] [place] 120 mg 24 7-20 capsule by [facility] capsule 00:00: mouth twice Medical daily Branch LOSARTAN 50 2021-0 Yes [id number] Take 1 [facility] mg tablet 7-20 tablet by [facility] o f 00:00: mouth twice Medical daily Branch DILTIAZEM 2021-0 Yes [id number] Take 1 [facility] [place] 120 mg 24 7-20 capsule by [facility] hr capsule 00:00: mouth twice Medical daily Branch LOSARTAN 50 2021-0 Yes [id number] Take 1 [facility] mg tablet 7-20 tablet by [facility] o f 00:00: mouth twice Medical daily Branch DILTIAZEM 2021-0 Yes [id number] Take 1 [facility] [place] 120 mg 24 7-20 capsule by [facility] hr capsule 00:00: mouth twice Medical daily Branch LOSARTAN 50 2021-0 Yes [id number] Take 1 [facility] mg tablet 7-20 tablet by [facility] o f 00:00: mouth twice Medical daily Branch DILTIAZEM 2021-0 Yes [id number] Take 1 [facility] [place] 120 mg 24 7-20 capsule by [facility] hr capsule 00:00: mouth twice Medical daily Branch LOSARTAN 50 2021-0 Yes [id number] Take 1 [facility] mg tablet 7-20 tablet by [facility] o f 00:00: mouth twice Medical daily Branch DILTIAZEM 2021-0 Yes [id number] Take 1 [facility] [place] 120 mg 24 7-20 capsule by [facility] hr capsule 00:00: mouth twice Medical daily Branch LOSARTAN 50 2021-0 Yes [id number] Take 1 [facility] mg tablet 7-20 tablet by [facility] o f 00:00: mouth twice Medical daily Branch DILTIAZEM 2021-0 Yes [id number] Take 1 [facility] [place] 120 mg 24 7-20 capsule by [facility] hr capsule 00:00: mouth twice Medical daily Branch LOSARTAN 50 2021-0 Yes [id number] Take 1 [facility] mg tablet 7-20 tablet by [facility] o f 00:00: mouth twice Medical daily Branch DILTIAZEM 2021-0 Yes [id number] Take 1 [facility] [place] 120 mg 24 7-20 capsule by [facility] hr capsule 00:00: mouth twice Medical daily Branch LOSARTAN 50 2021-0 Yes [id number] Take 1 [facility] mg tablet 7-20 tablet by [facility] o f 00:00: mouth twice Medical daily Branch DILTIAZEM 2021-0 Yes [id number] Take 1 [facility] [place] 120 mg 24 7-20 capsule by [facility] hr capsule 00:00: mouth twice Medical daily Branch LOSARTAN 50 2021-0 Yes [id number] Take 1 [facility] mg tablet 7-20 tablet by [facility] o f 00:00: mouth twice Medical daily Branch DILTIAZEM 2021-0 Yes [id number] Take 1 [facility] [place] 120 mg 24 7-20 capsule by [facility] hr capsule 00:00: mouth twice Medical daily Branch LOSARTAN 50 2021-0 Yes [id number] Take 1 [facility] mg tablet 7-20 tablet by [facility] o f 00:00: mouth twice Medical daily Branch DILTIAZEM 2021-0 Yes [id number] Take 1 [facility] [place] 120 mg 24 7-20 capsule by [facility] hr capsule 00:00: mouth twice Medical daily Branch LOSARTAN 50 2021-0 Yes [id number] Take 1 [facility] mg tablet 7-20 tablet by [facility] o f 00:00: mouth twice Medical daily Branch DILTIAZEM 2021-0 Yes [id number] Take 1 [facility] [place] 120 mg 24 7-20 capsule by [facility] hr capsule 00:00: mouth twice Medical daily Branch LOSARTAN 50 2021-0 Yes [id number] Take 1 [facility] mg tablet 7-20 tablet by [facility] o f 00:00: mouth twice Medical daily Branch DILTIAZEM 2021-0 Yes [id number] Take 1 [facility] [place] 120 mg 24 7-20 capsule by [facility] hr capsule 00:00: mouth twice Medical daily Branch LOSARTAN 50 2021-0 Yes [id number] Take 1 [facility] mg tablet 7-20 tablet by [facility] o f 00:00: mouth twice Medical daily Branch DILTIAZEM 2021-0 Yes [id number] Take 1 [facility] [place] 120 mg 24 7-20 capsule by [facility] hr capsule 00:00: mouth twice Medical daily Branch LOSARTAN 50 2021-0 Yes [id number] Take 1 [facility] mg tablet 7-20 tablet by [facility] o f 00:00: mouth twice Medical daily Branch DILTIAZEM 2021-0 Yes [id number] Take 1 [facility] [place] 120 mg 24 7-20 capsule by [facility] hr capsule 00:00: mouth twice Medical daily Branch LOSARTAN 50 2021-0 Yes [id number] Take 1 [facility] mg tablet 7-20 tablet by [facility] o f 00:00: mouth twice Medical daily Branch DILTIAZEM 2021-0 Yes [id number] Take 1 [facility] [place] 120 mg 24 7-20 capsule by [facility] hr capsule 00:00: mouth twice Medical daily Branch LOSARTAN 50 2021-0 Yes [id number] Take 1 [facility] mg tablet 7-20 tablet by [facility] o f 00:00: mouth twice Medical daily Branch DILTIAZEM 2021-0 Yes [id number] Take 1 [facility] [place] 120 mg 24 7-20 capsule by [facility] hr capsule 00:00: mouth twice Medical daily Branch LOSARTAN 50 2021-0 Yes [id number] Take 1 [facility] mg tablet 7-20 tablet by [facility] o f 00:00: mouth twice Medical daily Branch DILTIAZEM 2021-0 Yes [id number] Take 1 [facility] 120 mg 24 7-20 capsule by [facility] hr capsule 00:00: mouth twice Medical daily Branch LOSARTAN 50 2021-0 Yes [id number] Take 1 [facility] mg tablet 7-20 tablet by [facility] o f 00:00: mouth twice Medical daily Branch DILTIAZEM 2021-0 Yes [id number] Take 1 [facility] 120 mg 24 7-20 capsule by [facility] hr capsule 00:00: mouth [place] twice Medical daily Branch LOSARTAN 50 2021-0 Yes [id number] Take 1 [facility] mg tablet 7-20 tablet by [facility] o f 00:00: mouth twice Medical daily Branch DILTIAZEM 2021-0 Yes [id number] Take 1 [facility] 120 mg 24 7-20 capsule by [facility] hr capsule 00:00: mouth twice Medical daily Branch LOSARTAN 50 2021-0 Yes [id number] Take 1 [facility] mg tablet 7-20 tablet by [facility] o f 00:00: mouth twice Medical daily Branch DILTIAZEM 2021-0 Yes [id number] Take 1 [facility] 120 mg 24 7-20 capsule by [facility] hr capsule 00:00: mouth twice Medical daily Branch LOSARTAN 50 2021-0 Yes [id number] Take 1 [facility] mg tablet 7-20 tablet by [facility] o f 00:00: mouth twice Medical daily Branch DILTIAZEM 2021-0 Yes [id number] Take 1 [facility] 120 mg 24 7-20 capsule by [facility] hr capsule 00:00: mouth twice Medical daily Branch LOSARTAN 50 2021-0 Yes [id number] Take 1 [facility] mg tablet 7-20 tablet by [facility] o f 00:00: mouth 00 twice Medical daily Branch DILTIAZEM 2021-0 Yes [id number] Take 1 [facility] 120 mg 24 7-20 capsule by [facility] capsule 00:00: mouth 00 twice Medical daily Branch LOSARTAN 50 2021-0 Yes [id number] Take 1 [facility] mg tablet 7-20 tablet by [facility] o f 00:00: mouth 00 twice Medical daily Branch DILTIAZEM 2021-0 Yes [id number] Take 1 [facility] 120 mg 24 7-20 capsule by [facility] hr capsule 00:00: mouth 00 twice Medical daily Branch LOSARTAN 50 2021-0 2021- No [id number] Take 1 [facility] mg tablet 7-20 10-13 tablet by [facility] of 00:00: 00:00 mouth [place] 00 :00 twice Medical daily Branch DILTIAZEM 2021-0 2021- No [id number] Take 1 [facility] 120 mg 24 7-20 10-13 capsule by [facility] hr capsule 00:00: 00:00 mouth [place] 00 :00 twice Medical daily Branch methocarbam 2021-0 Yes [id number] 500mg Take 1 [facility] oL 500 mg 7-02 tablet by [facility] o f tablet 00:00: mouth 4 [place] 00 (four) Medical times Branch daily. methocarbam 2021-0 Yes [id number] 500mg Take 1 [facility] oL 500 mg 7-02 tablet by [facility] o f tablet 00:00: mouth 4 [place] 00 (four) Medical times Branch daily. methocarbam 2021-0 Yes [id number] 500mg Take 1 [facility] oL 500 mg 7-02 tablet by [facility] o f tablet 00:00: mouth 4 [place] 00 (four) Medical times Branch daily. methocarbam 2021-0 Yes [id number] 500mg Take 1 [facility] oL 500 mg 7-02 tablet by [facility] o f tablet 00:00: mouth 4 [place] 00 (four) Medical times Branch daily. methocarbam 2021-0 Yes [id number] 500mg Take 1 [facility] oL 500 mg 7-02 tablet by [facility] o f tablet 00:00: mouth 4 [place] 00 (four) Medical times Branch daily. methocarbam 2021-0 2021- No [id number] 500mg Take 1 [facility] oL 500 mg 7-02 08-11 tablet by [facility] tablet 00:00: 00:00 mouth 4 [place] 00 :00 (four) Medical times Branch daily. SUMATRIPTAN 2021-0 Yes [id number] TAKE 1 [facility] 50 mg 6-17 TABLET BY [facility] tablet 00:00: MOUTH [place] 00 NEEDED FOR Medical MIGRAINE Branch HEADACHE (MAY REPEAT IN TWO HOURS) SUMATRIPTAN 2-0 Yes [id number] TAKE 1 [facility] 50 mg 6-17 TABLET BY [facility] of tablet 00:00: MOUTH [place] 00 NEEDED FOR Medical MIGRAINE Branch HEADACHE (MAY REPEAT IN TWO HOURS) SUMATRIPTAN 2-0 Yes [id number] TAKE 1 [facility] 50 mg 6-17 TABLET BY [facility] of tablet 00:00: MOUTH [place] 00 NEEDED FOR Medical MIGRAINE Branch HEADACHE (MAY REPEAT IN TWO HOURS) SUMATRIPTAN 2-0 Yes [id number] TAKE 1 [facility] 50 mg 6-17 TABLET BY [facility] tablet 00:00: MOUTH [place] 00 NEEDED FOR Medical MIGRAINE Branch HEADACHE (MAY REPEAT IN TWO HOURS) SUMATRIPTAN 2-0 Yes [id number] TAKE 1 [facility] 50 mg 6-17 TABLET BY [facility] tablet 00:00: MOUTH [place] 00 NEEDED FOR Medical MIGRAINE Branch HEADACHE (MAY REPEAT IN TWO HOURS) SUMATRIPTAN 2022-0 Yes [id number] TAKE 1 [facility] 50 mg 6-17 TABLET BY [facility] of tablet 00:00: MOUTH [place] 00 NEEDED FOR Medical MIGRAINE Branch HEADACHE (MAY REPEAT IN TWO HOURS) SUMATRIPTAN 2022-0 Yes [id number] TAKE 1 [facility] 50 mg 6-17 TABLET BY [facility] of tablet 00:00: MOUTH [place] 00 NEEDED FOR Medical MIGRAINE Branch HEADACHE (MAY REPEAT IN TWO HOURS) SUMATRIPTAN 2022-0 Yes [id number] TAKE 1 [facility] 50 mg 6-17 TABLET BY [facility] tablet 00:00: MOUTH [place] 00 NEEDED FOR Medical MIGRAINE Branch HEADACHE (MAY REPEAT IN TWO HOURS) SUMATRIPTAN 2022-0 Yes [id number] TAKE 1 [facility] 50 mg 6-17 TABLET BY [facility] tablet 00:00: MOUTH [place] 00 NEEDED FOR Medical MIGRAINE Branch HEADACHE (MAY REPEAT IN TWO HOURS) SUMATRIPTAN 2022-0 Yes [id number] TAKE 1 [facility] 50 mg 6-17 TABLET BY [facility] tablet 00:00: MOUTH [place] 00 NEEDED FOR Medical MIGRAINE Branch HEADACHE (MAY REPEAT IN TWO HOURS) SUMATRIPTAN 2-0 Yes [id number] TAKE 1 [facility] 50 mg 6-17 TABLET BY [facility] tablet 00:00: MOUTH [place] 00 NEEDED FOR Medical MIGRAINE Branch HEADACHE (MAY REPEAT IN TWO HOURS) SUMATRIPTAN 2-0 Yes [id number] TAKE 1 [facility] 50 mg 6-17 TABLET BY [facility] tablet 00:00: MOUTH [place] 00 NEEDED FOR Medical MIGRAINE Branch HEADACHE (MAY REPEAT IN TWO HOURS) SUMATRIPTAN 2022-0 Yes [id number] TAKE 1 [facility] 50 mg 6-17 TABLET BY [facility] tablet 00:00: MOUTH [place] 00 NEEDED FOR Medical MIGRAINE Branch HEADACHE (MAY REPEAT IN TWO HOURS) SUMATRIPTAN 2022-0 Yes [id number] TAKE 1 [facility] 50 mg 6-17 TABLET BY [facility] tablet 00:00: MOUTH [place] 00 NEEDED FOR Medical MIGRAINE Branch HEADACHE (MAY REPEAT IN TWO HOURS) SUMATRIPTAN 2022-0 Yes [id number] TAKE 1 [facility] 50 mg 6-17 TABLET BY [facility] tablet 00:00: MOUTH [place] 00 NEEDED FOR Medical MIGRAINE Branch HEADACHE (MAY REPEAT IN TWO HOURS) SUMATRIPTAN 2022-0 Yes [id number] TAKE 1 [facility] 50 mg 6-17 TABLET BY [facility] tablet 00:00: MOUTH [place] 00 NEEDED FOR Medical MIGRAINE Branch HEADACHE (MAY REPEAT IN TWO HOURS) SUMATRIPTAN 2021-0 Yes [id number] TAKE 1 [facility] 50 mg 6-17 TABLET BY [facility] tablet 00:00: MOUTH [place] 00 NEEDED FOR Medical MIGRAINE Branch HEADACHE (MAY REPEAT IN TWO HOURS) SUMATRIPTAN 2021-0 2- No [id number] TAKE 1 [facility] 50 mg 6-17 09-06 TABLET BY [facility] tablet 00:00: 00:00 MOUTH [place] 00 :00 NEEDED FOR Medical MIGRAINE Branch HEADACHE (MAY REPEAT IN TWO HOURS) SUMATRIPTAN 2021-0 2021- No [id number] TAKE 1 [facility] 50 mg 6-17 09-06 TABLET BY [facility] tablet 00:00: 00:00 MOUTH [place] 00 :00 NEEDED FOR Medical MIGRAINE Branch HEADACHE (MAY REPEAT IN TWO HOURS) fexofenadin 0 Yes [id number] 180mg Take 1 [facility] e (LUIS 6-13 tablet by [facility] of ALLERGY) 00:00: mouth [place] 180 mg 00 daily. Medical tablet Branch fexofenadin 0 Yes [id number] 180mg Take 1 [facility] e (LUIS 6-13 tablet by [facility] of ALLERGY) 00:00: mouth [place] 180 mg 00 daily. Medical tablet Branch fexofenadin 0 Yes [id number] 180mg Take 1 [facility] e (LUIS 6-13 tablet by [facility] of ALLERGY) 00:00: mouth [place] 180 mg 00 daily. Medical tablet Branch fexofenadin 0 Yes [id number] 180mg Take 1 [facility] e (LUIS 6-13 tablet by [facility] of ALLERGY) 00:00: mouth [place] 180 mg 00 daily. Medical tablet Branch fexofenadin 2021-0 Yes [id number] 180mg Take 1 [facility] e (LUIS 6-13 tablet by [facility] of ALLERGY) 00:00: mouth [place] 180 mg 00 daily. Medical tablet Branch fexofenadin 0 Yes [id number] 180mg Take 1 [facility] e (LUIS 6-13 tablet by [facility] of ALLERGY) 00:00: mouth [place] 180 mg 00 daily. Medical tablet Branch fexofenadin 0 Yes [id number] 180mg Take 1 [facility] e (LUIS 6-13 tablet by [facility] of ALLERGY) 00:00: mouth [place] 180 mg 00 daily. Medical tablet Branch fexofenadin Yes [id number] 180mg Take 1 [facility] e (LUIS 6-13 tablet by [facility] of ALLERGY) 00:00: mouth [place] 180 mg 00 daily. Medical tablet Branch fexofenadin Yes [id number] 180mg Take 1 [facility] e (LUIS 6-13 tablet by [facility] of ALLERGY) 00:00: mouth [place] 180 mg 00 daily. Medical tablet Branch fexofenadin Yes [id number] 180mg Take 1 [facility] e (LUIS 6-13 tablet by [facility] of ALLERGY) 00:00: mouth [place] 180 mg 00 daily. Medical tablet Branch fexofenadin Yes [id number] 180mg Take 1 [facility] e (LUIS 6-13 tablet by [facility] of ALLERGY) 00:00: mouth [place] 180 mg 00 daily. Medical tablet Branch fexofenadin Yes [id number] 180mg Take 1 [facility] e (LUIS 6-13 tablet by [facility] of ALLERGY) 00:00: mouth [place] 180 mg 00 daily. Medical tablet Branch fexofenadin Yes [id number] 180mg Take 1 [facility] e (LUIS 6-13 tablet by [facility] of ALLERGY) 00:00: mouth [place] 180 mg 00 daily. Medical tablet Branch fexofenadin Yes [id number] 180mg Take 1 [facility] e (LUIS 6-13 tablet by [facility] of ALLERGY) 00:00: mouth [place] 180 mg 00 daily. Medical tablet Branch fexofenadin Yes [id number] 180mg Take 1 [facility] e (LUIS 6-13 tablet by [facility] of ALLERGY) 00:00: mouth [place] 180 mg 00 daily. Medical tablet Branch fexofenadin Yes [id number] 180mg Take 1 [facility] e (LUIS 6-13 tablet by [facility] of ALLERGY) 00:00: mouth [place] 180 mg 00 daily. Medical tablet Branch fexofenadin Yes [id number] 180mg Take 1 [facility] e (LUIS 6-13 tablet by [facility] of ALLERGY) 00:00: mouth [place] 180 mg 00 daily. Medical tablet Branch fexofenadin Yes [id number] 180mg Take 1 [facility] e (LUIS 6-13 tablet by [facility] of ALLERGY) 00:00: mouth [place] 180 mg 00 daily. Medical tablet Branch fexofenadin 0 Yes [id number] 180mg Take 1 [facility] e (LUIS 6-13 tablet by [facility] of ALLERGY) 00:00: mouth [place] 180 mg 00 daily. Medical tablet Branch fexofenadin Yes [id number] 180mg Take 1 [facility] e (LUIS 6-13 tablet by [facility] of ALLERGY) 00:00: mouth [place] 180 mg 00 daily. Medical tablet Branch fexofenadin Yes [id number] 180mg Take 1 [facility] e (LUIS 6-13 tablet by [facility] of ALLERGY) 00:00: mouth [place] 180 mg 00 daily. Medical tablet Branch fexofenadin Yes [id number] 180mg Take 1 [facility] e (LUIS 6-13 tablet by [facility] of ALLERGY) 00:00: mouth [place] 180 mg 00 daily. Medical tablet Branch fexofenadin Yes [id number] 180mg Take 1 [facility] e (LUIS 6-13 tablet by [facility] of ALLERGY) 00:00: mouth [place] 180 mg 00 daily. Medical tablet Branch fexofenadin Yes [id number] 180mg Take 1 [facility] e (LUIS 6-13 tablet by [facility] of ALLERGY) 00:00: mouth [place] 180 mg 00 daily. Medical tablet Branch fexofenadin Yes [id number] 180mg Take 1 [facility] e (LUIS 6-13 tablet by [facility] of ALLERGY) 00:00: mouth [place] 180 mg 00 daily. Medical tablet Branch fexofenadin Yes [id number] 180mg Take 1 [facility] e (LUIS 6-13 tablet by [facility] of ALLERGY) 00:00: mouth [place] 180 mg 00 daily. Medical tablet Branch fexofenadin Yes [id number] 180mg Take 1 [facility] e (LUIS 6-13 tablet by [facility] of ALLERGY) 00:00: mouth [place] 180 mg 00 daily. Medical tablet Branch fexofenadin Yes [id number] 180mg Take 1 [facility] e (LUIS 6-13 tablet by [facility] of ALLERGY) 00:00: mouth [place] 180 mg 00 daily. Medical tablet Branch fexofenadin 2022-0 Yes [id number] 180mg Take 1 [facility] e (LUIS 6-13 tablet by [facility] of ALLERGY) 00:00: mouth [place] 180 mg 00 daily. Medical tablet Branch fexofenadin Yes [id number] 180mg Take 1 [facility] e (LUIS 6-13 tablet by [facility] of ALLERGY) 00:00: mouth [place] 180 mg 00 daily. Medical tablet Branch fexofenadin Yes [id number] 180mg Take 1 [facility] e (LUIS 6-13 tablet by [facility] of ALLERGY) 00:00: mouth [place] 180 mg 00 daily. Medical tablet Branch fexofenadin Yes [id number] 180mg Take 1 [facility] e (LUIS 6-13 tablet by [facility] of ALLERGY) 00:00: mouth [place] 180 mg 00 daily. Medical tablet Branch fexofenadin Yes [id number] 180mg Take 1 [facility] e (LUIS 6-13 tablet by [facility] of ALLERGY) 00:00: mouth [place] 180 mg 00 daily. Medical tablet Branch fexofenadin Yes [id number] 180mg Take 1 [facility] e (LUIS 6-13 tablet by [facility] of ALLERGY) 00:00: mouth [place] 180 mg 00 daily. Medical tablet Branch fexofenadin Yes [id number] 180mg Take 1 [facility] e (LUIS 6-13 tablet by [facility] of ALLERGY) 00:00: mouth [place] 180 mg 00 daily. Medical tablet Branch fexofenadin Yes [id number] 180mg Take 1 [facility] e (LUIS 6-13 tablet by [facility] of ALLERGY) 00:00: mouth [place] 180 mg 00 daily. Medical tablet Branch fexofenadin Yes [id number] 180mg Take 1 [facility] e (LUIS 6-13 tablet by [facility] of ALLERGY) 00:00: mouth [place] 180 mg 00 daily. Medical tablet Branch fexofenadin Yes [id number] 180mg Take 1 [facility] e (LUIS 6-13 tablet by [facility] of ALLERGY) 00:00: mouth [place] 180 mg 00 daily. Medical tablet Branch fexofenadin Yes [id number] 180mg Take 1 [facility] e (LUIS 6-13 tablet by [facility] of ALLERGY) 00:00: mouth [place] 180 mg 00 daily. Medical tablet Branch fexofenadin Yes [id number] 180mg Take 1 [facility] e (LUIS 6-13 tablet by [facility] of ALLERGY) 00:00: mouth [place] 180 mg 00 daily. Medical tablet Branch fexofenadin Yes [id number] 180mg Take 1 [facility] e (LUIS 6-13 tablet by ity of ALLERGY) 00:00: mouth [place] 180 mg 00 daily. Medical tablet Branch fexofenadin Yes [id number] 180mg Take 1 [facility] (LUIS 6-13 tablet by ity of ALLERGY) 00:00: mouth [place] 180 mg 00 daily. Medical tablet Branch fexofenadin Yes [id number] 180mg Take 1 [facility] (LUIS 6-13 tablet by ity of ALLERGY) 00:00: mouth [place] 180 mg 00 daily. Medical tablet Branch fexofenadin Yes [id number] 180mg Take 1 [facility] e (LIUS 6-13 tablet by ity of ALLERGY) 00:00: mouth [place] 180 mg 00 daily. Medical tablet Branch fexofenadin Yes [id number] 180mg Take 1 [facility] e (LUIS 6-13 tablet by ity of ALLERGY) 00:00: mouth [place] 180 mg 00 daily. Medical tablet Branch fexofenadin Yes [id number] 180mg Take 1 [facility] e (LUIS 6-13 tablet by ity of ALLERGY) 00:00: mouth [place] 180 mg 00 daily. Medical tablet Branch fexofenadin Yes [id number] 180mg Take 1 [facility] e (LUIS 6-13 tablet by ity of ALLERGY) 00:00: mouth [place] 180 mg 00 daily. Medical tablet Branch fexofenadin Yes [id number] 180mg Take 1 [facility] e (LUIS 6-13 tablet by ity of ALLERGY) 00:00: mouth [place] 180 mg 00 daily. Medical tablet Branch fexofenadin Yes [id number] 180mg Take 1 [facility] e (LUIS 6-13 tablet by ity of ALLERGY) 00:00: mouth [place] 180 mg 00 daily. Medical tablet Branch fexofenadin Yes [id number] 180mg Take 1 [facility] e (LUIS 6-13 tablet by ity of ALLERGY) 00:00: mouth [place] 180 mg 00 daily. Medical tablet Branch fexofenadin 0 Yes [id number] 180mg Take 1 [facility] (LUIS 6-13 tablet by ity of ALLERGY) 00:00: mouth [place] 180 mg 00 daily. Medical tablet Branch fexofenadin Yes [id number] 180mg Take 1 [facility] e (LUIS 6-13 tablet by ity of ALLERGY) 00:00: mouth [place] 180 mg 00 daily. Medical tablet Branch fexofenadin Yes [id number] 180mg Take 1 [facility] (LUIS 6-13 tablet by ity of ALLERGY) 00:00: mouth [place] 180 mg 00 daily. Medical tablet Branch fexofenadin Yes [id number] 180mg Take 1 [facility] (LUIS 6-13 tablet by ity of ALLERGY) 00:00: mouth [place] 180 mg 00 daily. Medical tablet Branch fexofenadin Yes [id number] 180mg Take 1 [facility] (LUIS 6-13 tablet by ity of ALLERGY) 00:00: mouth [place] 180 mg 00 daily. Medical tablet Branch fexofenadin Yes [id number] 180mg Take 1 [facility] (LUIS 6-13 tablet by ity of ALLERGY) 00:00: mouth [place] 180 mg 00 daily. Medical tablet Branch fexofenadin Yes [id number] 180mg Take 1 [facility] (LUIS 6-13 tablet by ity of ALLERGY) 00:00: mouth [place] 180 mg 00 daily. Medical tablet Branch fexofenadin Yes [id number] 180mg Take 1 [facility] (LUIS 6-13 tablet by ity of ALLERGY) 00:00: mouth [place] 180 mg 00 daily. Medical tablet Branch fexofenadin Yes [id number] 180mg Take 1 [facility] e (LUIS 6-13 tablet by ity of ALLERGY) 00:00: mouth [place] 180 mg 00 daily. Medical tablet Branch fexofenadin Yes [id number] 180mg Take 1 [facility] (LUIS 6-13 tablet by ity of ALLERGY) 00:00: mouth [place] 180 mg 00 daily. Medical tablet Branch fexofenadin Yes [id number] 180mg Take 1 [facility] (LUIS 6-13 tablet by ity of ALLERGY) 00:00: mouth [place] 180 mg 00 daily. Medical tablet Branch fexofenadin 2021-0 Yes [id number] 180mg Take 1 [facility] (LUIS 6-13 tablet by ity of ALLERGY) 00:00: mouth [place] 180 mg 00 daily. Medical tablet Branch fexofenadin 0 Yes [id number] 180mg Take 1 [facility] (LUIS 6-13 tablet by ity of ALLERGY) 00:00: mouth [place] 180 mg 00 daily. Medical tablet Branch fexofenadin 2021-0 Yes [id number] 180mg Take 1 [facility] (LUIS 6-13 tablet by ity of ALLERGY) 00:00: mouth [place] 180 mg 00 daily. Medical tablet Branch fexofenadin 2021-0 Yes [id number] 180mg Take 1 [facility] (LUIS 6-13 tablet by ity of ALLERGY) 00:00: mouth [place] 180 mg 00 daily. Medical tablet Branch fexofenadin 0 Yes [id number] 180mg Take 1 [facility] (LUIS 6-13 tablet by ity of ALLERGY) 00:00: mouth [place] 180 mg 00 daily. Medical tablet Branch fexofenadin 0 Yes [id number] 180mg Take 1 [facility] e (LUIS 6-13 tablet by ity of ALLERGY) 00:00: mouth [place] 180 mg 00 daily. Medical tablet Branch fexofenadin 0 Yes [id number] 180mg Take 1 [facility] (LUIS 6-13 tablet by ity of ALLERGY) 00:00: mouth [place] 180 mg 00 daily. Medical tablet Branch fexofenadin 2021-0 Yes [id number] 180mg Take 1 [facility] (LUIS 6-13 tablet by ity of ALLERGY) 00:00: mouth [place] 180 mg 00 daily. Medical tablet Branch fexofenadin 2021-0 Yes [id number] 180mg Take 1 [facility] (LUIS 6-13 tablet by ity of ALLERGY) 00:00: mouth [place] 180 mg 00 daily. Medical tablet Branch fexofenadin 2021-0 Yes [id number] 180mg Take 1 [facility] (LUIS 6-13 tablet by ity of ALLERGY) 00:00: mouth [place] 180 mg 00 daily. Medical tablet Branch fexofenadin 2021-0 Yes [id number] 180mg Take 1 [facility] (LUIS 6-13 tablet by ity of ALLERGY) 00:00: mouth [place] 180 mg 00 daily. Medical tablet Branch fexofenadin 3- No [id number] 180mg Take 1 [facility] e (LUIS 03-08 tablet by ity of ALLERGY) 00:00: 00:00 mouth [place] 180 mg 00 :00 daily. Medical tablet Branch fexofenadin 3- No [id number] 180mg Take 1 [facility] (LUIS 03-08 tablet by ity of ALLERGY) 00:00: 00:00 mouth [place] 180 mg 00 :00 daily. Medical tablet Branch fexofenadin 2022- No [id number] 180mg Take 1 [facility] (LUIS 03-08 tablet by ity of ALLERGY) 00:00: 00:00 mouth [place] 180 mg 00 :00 daily. Medical tablet Branch rosuvastati Yes [id number] 10mg Take 1 [facility] n 10 mg 6-08 tablet by ity of tablet 00:00: mouth at [place] [address] bedtime. Medical Branch rosuvastati Yes [id number] 10mg Take 1 [facility] n 10 mg 6-08 tablet by ity of tablet 00:00: mouth at [place] [address] bedtime. Medical Branch rosuvastati Yes [id number] 10mg Take 1 [facility] n 10 mg 6-08 tablet by ity of tablet 00:00: mouth at [place] [address] bedtime. Medical Branch rosuvastati Yes [id number] 10mg Take 1 [facility] n 10 mg 6-08 tablet by ity of tablet 00:00: mouth at [place] [address] bedtime. Medical Branch rosuvastati Yes [id number] 10mg Take 1 [facility] n 10 mg 6-08 tablet by ity of tablet 00:00: mouth at [place] 00 bedtime. Medical Branch rosuvastati 0 Yes [id number] 10mg Take 1 [facility] n 10 mg 6-08 tablet by ity of tablet 00:00: mouth at [place] [address] bedtime. Medical Branch rosuvastati Yes [id number] 10mg Take 1 [facility] n 10 mg 6-08 tablet by ity of tablet 00:00: mouth at [place] 00 bedtime. Medical Branch rosuvastati Yes [id number] 10mg Take 1 [facility] n 10 mg 6-08 tablet by ity of tablet 00:00: mouth at [place] [address] bedtime. Medical Branch rosuvastati Yes [id number] 10mg Take 1 [facility] n 10 mg 6-08 tablet by ity of tablet 00:00: mouth at [place] bedtime. Medical Branch rosuvastati Yes [id number] 10mg Take 1 [facility] n 10 mg 6-08 tablet by ity of tablet 00:00: mouth at [place] [address] bedtime. Medical Branch rosuvastati Yes [id number] 10mg Take 1 [facility] n 10 mg 6-08 tablet by ity of tablet 00:00: mouth at [place] [address] bedtime. Medical Branch rosuvastati Yes [id number] 10mg Take 1 [facility] n 10 mg 6-08 tablet by ity of tablet 00:00: mouth at [place] [address] bedtime. Medical Branch rosuvastati Yes [id number] 10mg Take 1 [facility] n 10 mg 6-08 tablet by ity of tablet 00:00: mouth at [place] [address] bedtime. Medical Branch rosuvastati Yes [id number] 10mg Take 1 [facility] n 10 mg 6-08 tablet by ity of tablet 00:00: mouth at [place] [address] bedtime. Medical Branch rosuvastati Yes [id number] 10mg Take 1 [facility] n 10 mg 6-08 tablet by ity of tablet 00:00: mouth at [place] [address] bedtime. Medical Branch rosuvastati Yes [id number] 10mg Take 1 [facility] n 10 mg 6-08 tablet by ity of tablet 00:00: mouth at [place] [address] bedtime. Medical Branch rosuvastati Yes [id number] 10mg Take 1 [facility] n 10 mg 6-08 tablet by ity of tablet 00:00: mouth at [place] [address] bedtime. Medical Branch rosuvastati Yes [id number] 10mg Take 1 [facility] n 10 mg 6-08 tablet by ity of tablet 00:00: mouth at [place] [address] bedtime. Medical Branch rosuvastati Yes [id number] 10mg Take 1 [facility] n 10 mg 6-08 tablet by ity of tablet 00:00: mouth at [place] [address] bedtime. Medical Branch rosuvastati Yes [id number] 10mg Take 1 [facility] n 10 mg 6-08 tablet by ity of tablet 00:00: mouth at [place] bedtime. Medical Branch rosuvastati 2021-0 Yes [id number] 10mg Take 1 [facility] n 10 mg 6-08 tablet by ity of tablet 00:00: mouth at [place] bedtime. Medical Branch rosuvastati 2021-0 Yes [id number] 10mg Take 1 [facility] n 10 mg 6-08 tablet by ity of tablet 00:00: mouth at [place] bedtime. Medical Branch rosuvastati 2021-0 Yes [id number] 10mg Take 1 [facility] n 10 mg 6-08 tablet by ity of tablet 00:00: mouth at [place] bedtime. Medical Branch rosuvastati 2021- Yes [id number] 10mg Take 1 [facility] n 10 mg 6-08 tablet by ity of tablet 00:00: mouth at [place] bedtime. Medical Branch rosuvastati 2021- Yes [id number] 10mg Take 1 [facility] n 10 mg 6-08 tablet by ity of tablet 00:00: mouth at [place] bedtime. Medical Branch rosuvastati Yes [id number] 10mg Take 1 [facility] n 10 mg 6-08 tablet by ity of tablet 00:00: mouth at [place] bedtime. Medical Branch rosuvastati Yes [id number] 10mg Take 1 [facility] n 10 mg 6-08 tablet by ity of tablet 00:00: mouth at [place] bedtime. Medical Branch rosuvastati 2021- Yes [id number] 10mg Take 1 [facility] n 10 mg 6-08 tablet by ity of tablet 00:00: mouth at [place] bedtime. Medical Branch rosuvastati 2021-0 Yes [id number] 10mg Take 1 [facility] n 10 mg 6-08 tablet by ity of tablet 00:00: mouth at [place] bedtime. Medical Branch rosuvastati 2021-0 Yes [id number] 10mg Take 1 [facility] n 10 mg 6-08 tablet by ity of tablet 00:00: mouth at [place] bedtime. Medical Branch rosuvastati 2021-0 Yes [id number] 10mg Take 1 [facility] n 10 mg 6-08 tablet by ity of tablet 00:00: mouth at [place] bedtime. Medical Branch rosuvastati 2021-0 Yes [id number] 10mg Take 1 [facility] n 10 mg 6-08 tablet by ity of tablet 00:00: mouth at [place] 00 bedtime. Medical Branch rosuvastati 2021-0 Yes [id number] 10mg Take 1 [facility] n 10 mg 6-08 tablet by ity of tablet 00:00: mouth at [place] bedtime. Medical Branch rosuvastati 2021- Yes [id number] 10mg Take 1 [facility] n 10 mg 6-08 tablet by ity of tablet 00:00: mouth at [place] bedtime. Medical Branch rosuvastati 2021-0 Yes [id number] 10mg Take 1 [facility] n 10 mg 6-08 tablet by ity of tablet 00:00: mouth at [place] 00 bedtime. Medical Branch rosuvastati Yes [id number] 10mg Take 1 [facility] n 10 mg 6-08 tablet by ity of tablet 00:00: mouth at [place] bedtime. Medical Branch rosuvastati 0 Yes [id number] 10mg Take 1 [facility] n 10 mg 6-08 tablet by ity of tablet 00:00: mouth at [place] bedtime. Medical Branch rosuvastati Yes [id number] 10mg Take 1 [facility] n 10 mg 6-08 tablet by ity of tablet 00:00: mouth at [place] [address] bedtime. Medical Branch rosuvastati Yes [id number] 10mg Take 1 [facility] n 10 mg 6-08 tablet by ity of tablet 00:00: mouth at [place] [address] bedtime. Medical Branch rosuvastati 2021-0 Yes [id number] 10mg Take 1 [facility] n 10 mg 6-08 tablet by ity of tablet 00:00: mouth at [place] [address] bedtime. Medical Branch rosuvastati 0 Yes [id number] 10mg Take 1 [facility] n 10 mg 6-08 tablet by ity of tablet 00:00: mouth at [place] 00 bedtime. Medical Branch rosuvastati 0 Yes [id number] 10mg Take 1 [facility] n 10 mg 6-08 tablet by ity of tablet 00:00: mouth at [place] [address] bedtime. Medical Branch rosuvastati 2021- Yes [id number] 10mg Take 1 [facility] n 10 mg 6-08 tablet by ity of tablet 00:00: mouth at [place] [address] bedtime. Medical Branch rosuvastati Yes [id number] 10mg Take 1 [facility] n 10 mg 6-08 tablet by ity of tablet 00:00: mouth at [place] 00 bedtime. [facility] rosuvastati Yes [id number] 10mg Take 1 [facility] n 10 mg 6-08 tablet by ity of tablet 00:00: mouth at [place] 00 bedtime. [facility] rosuvastati 2021- No [id number] 10mg Take 1 Univers n 10 mg 6-08 10-13 tablet by ity of tablet 00:00: 00:00 mouth at [place] 00 :00 bedtime. [facility] water for 2021- No PRN, Univers irrigation 03-02 Starting ity of irrigation 14:20: 15:50 on [place] solution 00 :27 03/02/22 at Medica l 0920, Branch Until Tue03/02/22 at 1050, Routine, Intra-op simethicone 2021- No PRN, [facility] rs (GAS RELIEF 03-02 Starting ity of (SIMETHICON 14:20: 15:50 on e [place] as E)) 40 00 :27 03/02/22 at Medical mg/0.6 mL 0920, Branch drops Until Tue03/02/22 at 1050, Routine, Intra-op lactated 2021- No 1000mL at 42 Unive rs ringers IV 03-02 06-07 mL/hr, ity of infusion 12:45: 12:59 1,000 mL, [place] as 1,000 mL 00 :00 IV Medical Infusion, Branch ONCE, 1 dose, On Tue03/02/22 at 0745, Routine, DSU Pre-op lactated 2021- No 1000[facility] 42 [facility] ringers [facility] 03-02 06-07 mL/hr, ity of infusion 12:45: 12:59 1,000 mL, [place] as 1,000 mL 00 :00 IV Medical Infusion, Branch ONCE, 1 dose, On Tue03/02/22 at 0745, Routine, DSU Pre-op FOLIC ACID Yes Take by [facility] ers ORAL 03-02 mouth ity of 11:23: daily. [place] [facility] MULTIVIT Yes Take by Univer s &MINERALS/F 6-07 mouth. ity of ERROUS FUM 11:23: [place] (MULTI 09 Medical VITAMIN Branch ORAL) METHYLCELLU Yes Univer s LOSE (FIBER 6-07 ity of THERAPY 11:23: [facility]) 09 Medical Branch DOCUSATE Yes [...] by ity of vitamin D3, 11:23: mouth [place] (VITAMIN 09 daily. Medical D3) 1,000 Branch unit tablet CRANBERRY Yes Take by [facility] rs FRUIT 6-07 mouth ity of EXTRACT 11:23: daily. [place] (CRANBERRY 09 Medical ORAL) Branch CALCIUM Yes Take by Univers ORAL 6-07 mouth ity of 11:23: daily. [place] Medical Branch DOCOSAHEXAN Yes 1000mg Take 1,000 [facility] OIC 6-07 mg by ity of ACID/EPA 11:23: mouth [place] (FISH OIL 09 daily. Medical ORAL) Branch BIOTIN ORAL Yes Take by Uni vers 6-07 mouth. ity of 11:23: [place] [address] Medical Branch FOLIC ACID Yes Take by Univ ers ORAL 6-07 mouth ity of 11:23: daily. [place] [address] Medical Branch MULTIVIT Yes Take by Univer s &MINERALS/F 6-07 mouth. ity of ERROUS FUM 11:23: [place] (MULTI 09 Medical VITAMIN Branch ORAL) METHYLCELLU 0 Yes Univer s LOSE (FIBER 6-07 ity of THERAPY 11:23: [facility]) 09 Medical Branch DOCUSATE Yes [facility] SODIUM 6-07 mouth. ity of (COLACE 11:23: [place] ORAL) 09 Medical Branch vitamin C Yes 1000mg Take 1,000 Univers with derrell 6-07 mg by ity of hips 11:23: mouth [place] (VITAMIN C) 09 daily. Medica l 1,000 mg Branch tablet cholecalcif Yes 1000U Take 1,000 Univers edmar, 6-07 Units by ity of vitamin D3, 11:23: mouth [place] (VITAMIN 09 daily. Medical D3) 1,000 Branch unit tablet CRANBERRY 0 Yes Take by [facility] rs FRUIT 6-07 mouth ity of EXTRACT 11:23: daily. [place] (CRANBERRY Medical ORAL) Branch CALCIUM Yes Take by Univers ORAL 6-07 mouth ity of 11:23: daily. [place] Medical Branch DOCOSAHEXAN Yes 1000mg Take 1,000 Univers OIC 6-07 mg by ity of ACID/EPA 11:23: mouth [place] (FISH OIL 09 daily. Medical ORAL) Branch BIOTIN ORAL Yes Take by Uni vers 6-07 mouth. ity of 11:23: Medical Branch FOLIC ACID Yes Take by Univ ers ORAL 6-07 mouth ity of 11:23: daily. [place] Medical Branch MULTIVIT Yes [facility] &MINERALS/F 6-07 mouth. ity of ERROUS FUM 11:23: [place] (MULTI 09 Medical VITAMIN Branch ORAL) METHYLCELLU Yes Univer s LOSE (FIBER 6-07 ity of THERAPY 11:23: [place] MISC) 09 Medical Branch DOCUSATE Yes Take by Univer s SODIUM 6-07 mouth. ity of (COLACE 11:23: [place] ORAL) 09 Medical Branch vitamin C Yes 1000mg Take 1,000 Univers with derrell 6-07 mg by ity of hips 11:23: mouth [place] (VITAMIN C) 09 daily. Medica l 1,000 mg Branch tablet cholecalcif Yes 1000U Take 1,000 Univers edmar, 6-07 Units by ity of vitamin D3, 11:23: mouth [place] (VITAMIN 09 daily. Medical D3) 1,000 Branch unit tablet CRANBERRY 0 Yes Take by Unive rs FRUIT 6-07 mouth ity of EXTRACT 11:23: daily. [place] (CRANBERRY 09 Medical ORAL) Branch CALCIUM Yes Take by Univers ORAL 6-07 mouth ity of 11:23: daily. [place] Medical Branch DOCOSAHEXAN 2022-0 Yes 1000mg Take 1,000 Univers OIC 6-07 mg by ity of ACID/EPA 11:23: mouth [place] (FISH OIL 09 daily. Medical ORAL) Branch BIOTIN ORAL Yes Take by Uni vers 6-07 mouth. ity of 11:23: Medical Branch FOLIC ACID Yes Take by Univ ers ORAL 6-07 mouth ity of 11:23: daily. [place] Medical Branch MULTIVIT Yes Take by Univer s &MINERALS/F 6-07 mouth. ity of ERROUS FUM 11:23: [place] (MULTI 09 Medical VITAMIN Branch ORAL) METHYLCELLU Yes [facility] (FIBER 6-07 ity of THERAPY 11:23: [place] MISC) 09 Medical Branch DOCUSATE Yes Take by [facility] SODIUM 6-07 mouth. ity of (COLACE 11:23: [place] ORAL) 09 Medical Branch vitamin C Yes 1000mg Take 1,000 Univers with derrell 6-07 mg by ity of hips 11:23: mouth [place] (VITAMIN C) 09 daily. Medica l 1,000 mg Branch tablet cholecalcif Yes 1000U Take 1,000 [facility] edmar, 6-07 Units by ity of vitamin D3, 11:23: mouth [place] (VITAMIN 09 daily. Medical D3) 1,000 Branch unit tablet CRANBERRY Yes Take by Unive rs FRUIT 6-07 mouth ity of EXTRACT 11:23: daily. [place] (CRANBERRY Medical ORAL) Branch CALCIUM Yes Take by Univers ORAL 6-07 mouth ity of 11:23: daily. [place] Medical Branch DOCOSAHEXAN Yes 1000mg Take 1,000 Univers OIC 6-07 mg by ity of ACID/EPA 11:23: mouth [place] (FISH OIL 09 daily. Medical ORAL) Branch BIOTIN ORAL Yes Take by Uni vers 6-07 mouth. ity of 11:23: [place] Medical Branch FOLIC ACID 0 Yes Take by Univ ers ORAL 6-07 mouth ity of 11:23: daily. [place] [address] Medical Branch MULTIVIT Yes Take by Univer s &MINERALS/F 6-07 mouth. ity of ERROUS FUM 11:23: [place] (MULTI 09 Medical VITAMIN Branch ORAL) METHYLCELLU 0 Yes Univer s LOSE (FIBER 6-07 ity of THERAPY 11:23: [facility]) 09 Medical Branch DOCUSATE Yes Take by [facility] SODIUM 6-07 mouth. ity of (COLACE [...] Branch unit tablet CRANBERRY Yes Take by [facility] rs FRUIT 6-07 mouth ity of EXTRACT 11:23: daily. [place] (CRANBERRY 09 Medical ORAL) Branch CALCIUM Yes Take by Univers ORAL 6-07 mouth ity of 11:23: daily. [place] Medical Branch DOCOSAHEXAN Yes 1000mg Take 1,000 Univers OIC 6-07 mg by ity of ACID/EPA 11:23: mouth [place] (FISH OIL 09 daily. Medical ORAL) Branch BIOTIN ORAL Yes Take by Uni vers 6-07 mouth. ity of 11:23: [place] [address] Medical Branch FOLIC ACID Yes Take by Univ ers ORAL 6-07 mouth ity of 11:23: daily. [place] Medical Branch MULTIVIT Yes Take by [facility] &MINERALS/F 6-07 mouth. ity of ERROUS FUM 11:23: [place] (MULTI 09 Medical VITAMIN Branch ORAL) METHYLCELLU 0 Yes Univer s LOSE (FIBER 6-07 ity of THERAPY 11:23: [facility]) 09 Medical Branch DOCUSATE Yes Take by [facility] SODIUM 6-07 mouth. ity of (COLACE 11:23: [place] ORAL) 09 Medical Branch vitamin C Yes [...] 6-07 mouth ity of EXTRACT 11:23: daily. [place] (CRANBERRY Medical ORAL) Branch CALCIUM Yes Take by Univers ORAL 6-07 mouth ity of 11:23: daily. [place] Medical Branch DOCOSAHEXAN Yes 1000mg Take 1,000 [facility] OIC 6-07 mg by ity of ACID/EPA 11:23: mouth [place] (FISH OIL 09 daily. Medical ORAL) Branch BIOTIN ORAL Yes Take by Uni vers 6-07 mouth. ity of 11:23: [place] [address] Medical Branch FOLIC ACID Yes Take by Univ ers ORAL 6-07 mouth ity of 11:23: daily. [place] Medical Branch MULTIVIT Yes Take by Univer s &MINERALS/F 6-07 mouth. ity of ERROUS FUM 11:23: [place] (MULTI 09 Medical VITAMIN Branch ORAL) METHYLCELLU Yes Univer s LOSE (FIBER 6-07 ity of THERAPY 11:23: [place] MISC) Medical Branch DOCUSATE Yes Take by Univer s SODIUM 6-07 mouth. ity of (COLACE 11:23: [place] ORAL) Medical Branch vitamin C Yes 1000mg Take 1,000 Univers with derrell 6-07 mg by ity of hips 11:23: mouth [place] (VITAMIN C) 09 daily. Medica l 1,000 mg Branch tablet cholecalcif Yes 1000U Take 1,000 Univers edmar, 6-07 Units by ity of vitamin D3, 11:23: mouth [place] (VITAMIN 09 daily. Medical D3) 1,000 Branch unit tablet CRANBERRY Yes Take by [facility] rs FRUIT 6-07 mouth ity of EXTRACT 11:23: daily. [place] (CRANBERRY Medical ORAL) Branch CALCIUM Yes Take by Univers ORAL 6-07 mouth ity of 11:23: daily. [place] Medical Branch DOCOSAHEXAN Yes 1000mg Take 1,000 Univers OIC 6-07 mg by ity of ACID/EPA 11:23: mouth [place] (FISH OIL 09 daily. Medical ORAL) Branch BIOTIN ORAL Yes Take by Uni vers 6-07 mouth. ity of 11:23: Medical Branch FOLIC ACID Yes Take by Univ ers ORAL 6-07 mouth ity of 11:23: daily. [place] Medical Branch MULTIVIT Yes Take by Univer s &MINERALS/F 6-07 mouth. ity of ERROUS FUM 11:23: [place] (MULTI 09 Medical VITAMIN Branch ORAL) METHYLCELLU 0 Yes Univer s LOSE (FIBER 6-07 ity of THERAPY 11:23: [facility]) 09 Medical Branch DOCUSATE Yes Take by Univer s SODIUM 6-07 mouth. ity of (COLACE 11:23: [place] ORAL) 09 Medical Branch vitamin C Yes 1000mg Take 1,000 Univers with derrell 6-07 mg by ity of hips 11:23: mouth [place] (VITAMIN C) 09 daily. Medica l 1,000 mg Branch tablet cholecalcif Yes 1000U Take 1,000 Univers edmar, 6-07 Units by ity of vitamin D3, 11:23: mouth [place] (VITAMIN 09 daily. Medical D3) 1,000 Branch unit tablet CRANBERRY Yes Take by Unive rs FRUIT 6-07 mouth ity of EXTRACT 11:23: daily. [place] (CRANBERRY Medical ORAL) Branch CALCIUM Yes Take by Univers ORAL 6-07 mouth ity of 11:23: daily. [place] Medical Branch DOCOSAHEXAN Yes 1000mg Take 1,000 Univers OIC 6-07 mg by ity of ACID/EPA 11:23: mouth [place] (FISH OIL 09 daily. Medical ORAL) Branch BIOTIN ORAL Yes Take by Uni vers 6-07 mouth. ity of 11:23: Medical Branch FOLIC ACID Yes Take by Univ ers ORAL 6-07 mouth ity of 11:23: daily. [place] Medical Branch MULTIVIT 0 Yes Take by Univer s &MINERALS/F 6-07 mouth. ity of ERROUS FUM 11:23: [place] (MULTI 09 Medical VITAMIN Branch ORAL) METHYLCELLU 0 Yes Univer s LOSE (FIBER 6-07 ity of THERAPY 11:23: [facility]) 09 Medical Branch DOCUSATE Yes Take by [facility] s SODIUM 6-07 mouth. ity of (COLACE [...] Branch unit tablet CRANBERRY Yes Take by [facility] rs FRUIT 6-07 mouth ity of EXTRACT 11:23: daily. [place] (CRANBERRY Medical ORAL) Branch CALCIUM Yes Take by [facility] ORAL 6-07 mouth ity of 11:23: daily. [place] Medical Branch DOCOSAHEXAN Yes 1000mg Take 1,000 Univers OIC 6-07 mg by ity of ACID/EPA 11:23: mouth [place] (FISH OIL 09 daily. Medical ORAL) Branch BIOTIN ORAL Yes Take by Uni vers 6-07 mouth. ity of 11:23: [place] [address] Medical Branch FOLIC ACID Yes Take by [facility] ers ORAL 6-07 mouth ity of 11:23: daily. [place] Medical Branch MULTIVIT Yes Take by [facility] s &MINERALS/F 6-07 mouth. ity of ERROUS FUM 11:23: [place] (MULTI 09 Medical VITAMIN Branch ORAL) METHYLCELLU Yes [facility] s LOSE (FIBER 6-07 ity of THERAPY 11:23: [place] MISC) 09 Medical Branch DOCUSATE Yes Take by [facility] s SODIUM 6-07 mouth. ity of (COLACE [...] 6-07 mouth ity of EXTRACT 11:23: daily. [place] (CRANBERRY Medical ORAL) Branch CALCIUM Yes Take by Univers ORAL 6-07 mouth ity of 11:23: daily. [place] Medical Branch DOCOSAHEXAN Yes 1000mg Take 1,000 Univers OIC 6-07 mg by ity of ACID/EPA 11:23: mouth [place] (FISH OIL 09 daily. Medical ORAL) Branch BIOTIN ORAL Yes Take by Uni vers 6-07 mouth. ity of 11:23: [place] Medical Branch FOLIC ACID Yes Take by Univ ers ORAL 6-07 mouth ity of 11:23: daily. [place] Medical Branch MULTIVIT Yes Take by Univer s &MINERALS/F 6-07 mouth. ity of ERROUS FUM 11:23: [place] (MULTI 09 Medical VITAMIN Branch ORAL) METHYLCELLU Yes Univer s LOSE (FIBER 6-07 ity of THERAPY 11:23: [place] MISC) Medical Branch DOCUSATE Yes Take by Univer s SODIUM 6-07 mouth. ity of (COLACE 11:23: [place] ORAL) Medical Branch vitamin C Yes 1000mg Take 1,000 Univers with derrell 6-07 mg by ity of hips 11:23: mouth [place] (VITAMIN C) 09 daily. Medica l 1,000 mg Branch tablet cholecalcif Yes 1000U Take 1,000 Univers edmar, 6-07 Units by ity of vitamin D3, 11:23: mouth [place] (VITAMIN 09 daily. Medical D3) 1,000 Branch unit tablet CRANBERRY Yes Take by [facility] FRUIT 6-07 mouth ity of EXTRACT 11:23: daily. [place] (CRANBERRY Medical ORAL) Branch CALCIUM Yes Take by Univers ORAL 6-07 mouth ity of 11:23: daily. [place] Medical Branch DOCOSAHEXAN Yes 1000mg Take 1,000 [facility] OIC 6-07 mg by ity of ACID/EPA 11:23: mouth [place] (FISH OIL 09 daily. Medical ORAL) Branch BIOTIN ORAL Yes Take by Uni vers 6-07 mouth. ity of 11:23: [place] [address] Medical Branch FOLIC ACID Yes Take by [facility] ers ORAL 6-07 mouth ity of 11:23: daily. [place] [address] Medical Branch MULTIVIT Yes Take by Univer s &MINERALS/F 6-07 mouth. ity of ERROUS FUM 11:23: [place] (MULTI 09 Medical VITAMIN Branch ORAL) METHYLCELLU Yes Univer s LOSE (FIBER 6-07 ity of THERAPY 11:23: [facility]) 09 Medical Branch [facility]USATE Yes [facility]-07 mouth. ity of (COLACE 11:23: [place] ORAL) 09 Medical Branch vitamin C Yes 1000mg Take 1,000 [facility] with derrell 6-07 mg by ity of hips 11:23: mouth [place] (VITAMIN C) 09 daily. Medica l 1,000 mg Branch tablet cholecalcif Yes 1000U Take 1,000 [facility] edmar, 6-07 Units by ity of vitamin D3, 11:23: mouth [place] (VITAMIN 09 daily. Medical D3) 1,000 Branch unit tablet CRANBERRY Yes Take by [facility] rs FRUIT 6-07 mouth ity of EXTRACT 11:23: daily. [place] (CRANBERRY 09 Medical ORAL) Branch CALCIUM Yes Take by [facility] ORAL 6-07 mouth ity of 11:23: daily. [place] [facility] Branch DOCOSAHEXAN Yes 1000mg Take 1,000 [facility] OIC 6-07 mg by ity of ACID/EPA 11:23: mouth [place] (FISH OIL 09 daily. Medical ORAL) Branch BIOTIN ORAL Yes Take by [facility] vers 6-07 mouth. ity of 11:23: [place] [address] Medical Branch FOLIC ACID Yes Take by [facility] ers ORAL 6-07 mouth ity of 11:23: daily. [place] [address] Medical Branch MULTIVIT Yes [facility] &[facility]/F 6-07 mouth. ity of ERROUS FUM 11:23: [place] (MULTI 09 Medical VITAMIN Branch ORAL) METHYLCELLU Yes Univer s LOSE (FIBER 6-07 ity of THERAPY 11:23: [place] MIS) 09 Medical Branch DOCUSATE Yes Take by [facility] s SODIUM 6-07 mouth. ity of (COLACE [...] 6-07 mouth ity of EXTRACT 11:23: daily. [place] (CRANBERRY 09 Medical ORAL) Branch CALCIUM Yes Take by [facility] ORAL 6-07 mouth ity of 11:23: daily. [place] [facility] Branch DOCOSAHEXAN Yes 1000mg Take 1,000 [facility] OIC 6-07 mg by ity of ACID/EPA 11:23: mouth [place] (FISH OIL 09 daily. Medical ORAL) Branch BIOTIN ORAL Yes Take by [facility] vers 6-07 mouth. ity of 11:23: Medical Branch FOLIC ACID Yes Take by [facility] ers ORAL 6-07 mouth ity of 11:23: daily. [place] [facility] MULTIVIT Yes Take by [facility] s &MINERALS/F 6-07 mouth. ity of ERROUS FUM 11:23: [place] (MULTI 09 Medical VITAMIN Branch ORAL) METHYLCELLU Yes Univer s LOSE (FIBER 6-07 ity of THERAPY 11:23: [place] MISC) 09 Medical Branch DOCUSATE Yes Take [...] 6-07 mouth ity of EXTRACT 11:23: daily. [place] (CRANBERRY 09 Medical ORAL) Branch CALCIUM Yes [...] ORAL 6-07 mouth ity of 11:23: daily. [place] [facility] MULTIVIT Yes Take by Univer s &MINERALS/F 6-07 mouth. ity of ERROUS FUM 11:23: [place] (MULTI 09 Medical VITAMIN Branch ORAL) METHYLCELLU Yes [facility] (FIBER 6-07 ity of THERAPY 11:23: [place] MISC) 09 Medical Branch DOCUSATE Yes Take by [facility] SODIUM 6-07 mouth. ity of (COLACE [...] Branch unit tablet CRANBERRY Yes Take by [facility] rs FRUIT 6-07 mouth ity of EXTRACT 11:23: daily. [place] ([place] Medical ORAL) Branch CALCIUM Yes Take by [facility] ORAL 6-07 mouth ity of 11:23: daily. [place] [facility] Branch DOCOSAHEXAN Yes 1000mg Take 1,000 [...] 6-07 mouth. ity of ERROUS FUM 11:23: [place] (MULTI 09 Medical VITAMIN Branch ORAL) METHYLCELLU Yes [facility] (FIBER 6-07 ity of THERAPY 11:23: [facility]) Medical Branch DOCUSATE Yes Take [facility] SODIUM 6-07 mouth. ity of (COLACE 11:23: [place] ORAL) 09 Medical Branch vitamin C Yes 1000mg Take 1,000 [facility] with derrell 6-07 mg by ity of hips 11:23: mouth [place] (VITAMIN C) 09 daily. Medica l 1,000 mg Branch tablet cholecalcif Yes 1000U Take 1,000 [facility] edmar, 6-07 Units by ity of vitamin D3, 11:23: mouth [place] (VITAMIN 09 daily. Medical D3) 1,000 Branch unit tablet CRANBERRY Yes Take by [facility] rs FRUIT 6-07 mouth ity of EXTRACT 11:23: daily. [place] (CRAN[place]Y 09 Medical ORAL) Branch CALCIUM Yes Take by [facility] ORAL 6-07 mouth ity of 11:23: daily. [place] [address] Medical Branch DOCOSAHEXAN Yes 1000mg Take 1,000 [facility] OIC 6-07 mg by ity of ACID/EPA 11:23: mouth [place] (FISH OIL 09 daily. Medical ORAL) Branch BIOTIN ORAL Yes Take by [facility] vers 6-07 mouth. ity of 11:23: [place] [address] Medical Branch FOLIC ACID Yes Take by [facility] ers ORAL 6-07 mouth ity of 11:23: daily. [place] [address] Medical Branch MULTIVIT Yes Take [facility] &MINERALS/F 6-07 mouth. ity of ERROUS FUM 11:23: [place] (MULTI 09 Medical VITAMIN Branch ORAL) METHYLCELLU 0 Yes [facility] LO[facility] (FIBER 6-07 ity of THERAPY 11:23: [facility]) Medical Branch DOCUSATE 0 Yes Take by [facility] SODIUM 6-07 mouth. ity of (COLACE [...] tablet CRANBERRY 2021-0 Yes Take [facility] FRUIT 6-07 mouth ity of EXTRACT 11:23: daily. [place] ([place] Medical ORAL) Branch CALCIUM 0 Yes Take by [facility] ORAL 6-07 mouth ity of 11:23: daily. [place] [facility] Branch DOCOSAHEXAN Yes 1000mg Take 1,000 [facility] OIC 6-07 mg by ity of ACID/EPA 11:23: mouth [place] (FISH OIL 09 daily. Medical ORAL) Branch BIOTIN ORAL 0 Yes Take by [facility] vers 6-07 mouth. ity of 11:23: [place] [facility] FOLIC ACID Yes Take by [facility] ers ORAL 6-07 mouth ity of 11:23: daily. [place] [facility] MULTIVIT Yes [facility] &MINERALS/F 6-07 mouth. ity of ERROUS FUM 11:23: [place] (MULTI 09 Medical VITAMIN Branch ORAL) METHYLCELLU 0 Yes [facility] LOSE (FIBER 6-07 ity of THERAPY 11:23: [place] MISC) 09 Medical Branch DOCUSATE Yes Take by [facility] SODIUM 6-07 mouth. ity of (COLACE 11:23: [place] ORAL) 09 Medical Branch vitamin C Yes 1000mg Take 1,000 [facility] with derrell 6-07 mg by ity of hips 11:23: mouth [place] (VITAMIN C) 09 daily. Medica l 1,000 mg Branch tablet cholecalcif 2021-0 Yes 1000U Take 1,000 [facility] edmar, 6-07 Units by ity of vitamin D3, 11:23: mouth [place] (VITAMIN 09 daily. Medical D3) 1,000 Branch unit tablet CRANBERRY 2021-0 Yes Take [facility] FR[facility] 6-07 mouth ity of EXTRACT 11:23: daily. [place] (CRAN[place]Y Medical ORAL) Branch CALCIUM 0 Yes Take by [facility] ORAL 6-07 mouth ity of 11:23: daily. [place] [facility] Branch DOCOSAHEXAN 2022-0 Yes 1000mg Take 1,000 [facility] OIC 6-07 mg by ity of ACID/EPA 11:23: mouth [place] (FISH OIL 09 daily. Medical ORAL) Branch BIOTIN ORAL Yes Take by [facility] vers 6-07 mouth. ity of 11:23: Medical Branch FOLIC ACID Yes Take by [facility] ers ORAL 6-07 mouth ity of 11:23: daily. [place] [facility] MULTIVIT Yes Take by Un[facility] s &MINERALS/F 6-07 mouth. ity of ERROUS FUM 11:23: [place] (MULTI 09 Medical VITAMIN Branch ORAL) METHYLCELLU Yes [facility] (FIBER 6-07 ity of THERAPY 11:23: [place] MISC) 09 Medical Branch DOCUSATE Yes Take by [facility] SODIUM 6-07 mouth. ity of (COLACE 11:23: [place] ORAL) 09 Medical Branch vitamin C Yes 1000mg Take 1,000 [facility] with derrell 6-07 mg by ity of hips 11:23: mouth [place] (VITAMIN C) 09 daily. Medica l 1,000 mg Branch tablet cholecalcif Yes 1000U Take 1,000 [facility] edmar, 6-07 Units by ity of vitamin D3, 11:23: mouth [place] (VITAMIN 09 daily. Medical D3) 1,000 Branch unit tablet CRANBERRY Yes Take by Unive rs FRUIT 6-07 mouth ity of EXTRACT 11:23: daily. [place] ([place] Medical ORAL) Branch CALCIUM Yes Take by [facility] ORAL 6-07 mouth ity of 11:23: daily. [place] [facility] Branch DOCOSAHEXAN Yes 1000mg Take 1,000 [facility] OIC 6-07 mg by ity of ACID/EPA 11:23: mouth [place] (FISH OIL 09 daily. Medical ORAL) Branch BIOTIN ORAL Yes Take by [facility] vers 6-07 mouth. ity of 11:23: Medical Branch FOLIC ACID Yes Take by [facility] ers ORAL 6-07 mouth ity of 11:23: daily. [place] [facility] MULTIVIT Yes Take by Univer s &MINERALS/F 6-07 mouth. ity of ERROUS FUM 11:23: [place] (MULTI 09 Medical VITAMIN Branch ORAL) METHYLCELLU Yes [facility] (FIBER 6-07 ity of THERAPY 11:23: [facility]) 09 Medical Branch DOCUSATE Yes Take by [facility] SODIUM 6-07 mouth. ity of (COLACE [...] unit tablet CRANBERRY Yes Take by [facility] FRUIT 6-07 mouth ity of EXTRACT 11:23: daily. [place] (CRANBERRY 09 Medical ORAL) Branch CALCIUM Yes Take by [facility] ORAL 6-07 mouth ity of 11:23: daily. [place] [facility] Branch DOCOSAHEXAN Yes 1000mg Take 1,000 [facility] OIC 6-07 mg by ity of ACID/EPA 11:23: mouth [place] (FISH OIL 09 daily. Medical ORAL) Branch BIOTIN ORAL Yes Take by [facility] vers 6-07 mouth. ity of 11:23: [place] [address] Medical Branch FOLIC ACID Yes Take by [facility] ers ORAL 6-07 mouth ity of 11:23: daily. [place] [address] Medical Branch MULTIVIT Yes Take by [facility] s &MINERALS/F 6-07 mouth. ity of ERROUS FUM 11:23: [place] (MULTI 09 Medical VITAMIN Branch ORAL) METHYLCELLU Yes Univer s LOSE (FIBER 6-07 ity of THERAPY 11:23: [facility]) 09 Medical Branch DOCUSATE 0 Yes Take by [facility] SODIUM 6-07 mouth. ity of (COLACE [...] unit tablet CRANBERRY Yes Take by [facility] FRUIT 6-07 mouth ity of EXTRACT 11:23: daily. [place] ([place]AN[place] Medical ORAL) Branch CALCIUM Yes Take by [facility] ORAL 6-07 mouth ity of 11:23: daily. [place] [facility] Branch DOCOSAHEXAN Yes 1000mg Take 1,000 [facility] OIC 6-07 mg by ity of ACID/EPA 11:23: mouth [place] (FISH OIL 09 daily. Medical ORAL) Branch BIOTIN ORAL Yes Take by [facility] vers 6-07 mouth. ity of 11:23: Medical Branch FOLIC ACID Yes Take by [facility] ers ORAL 6-07 mouth ity of 11:23: daily. [place] [facility] MULTIVIT Yes Take by Univer s &MINERALS/F 6-07 mouth. ity of ERROUS FUM 11:23: [place] (MULTI 09 Medical VITAMIN Branch ORAL) METHYLCELLU Yes Univer s LOSE (FIBER 6-07 ity of THERAPY 11:23: [place] MISC) 09 Medical Branch DOCUSATE Yes Take by [facility] s SODIUM 6-07 mouth. ity of (COLACE 11:23: [place] ORAL) 09 Medical Branch vitamin C Yes 1000mg Take 1,000 [facility] with derrell 6-07 mg by ity of hips 11:23: mouth [place] (VITAMIN C) 09 daily. Medica l 1,000 mg Branch tablet cholecalcif Yes 1000U Take 1,000 [facility] edamr, 6-07 Units by ity of vitamin D3, 11:23: mouth [place] (VITAMIN 09 daily. Medical D3) 1,000 Branch unit tablet CRANBERRY Yes Take [facility] 6-07 mouth ity of EXTRACT 11:23: daily. [place] (CRAN[place]ERRY Medical ORAL) Branch CALCIUM Yes Take by [facility] ORAL 6-07 mouth ity of 11:23: daily. [place] [facility] Branch DOCOSAHEXAN Yes 1000mg Take 1,000 [...] 6-07 mouth. ity of ERROUS FUM 11:23: [place] (MULTI 09 Medical VITAMIN Branch ORAL) METHYLCELLU 0 Yes Univer s LOSE (FIBER 6-07 ity of THERAPY 11:23: [facility]) 09 Medical Branch DOCUSATE Yes Take by Univer s SODIUM 6-07 mouth. ity of (COLACE 11:23: [place] ORAL) 09 Medical Branch vitamin C Yes 1000mg Take 1,000 [facility] with derrell 6-07 mg by ity of hips 11:23: mouth [place] (VITAMIN C) 09 daily. Medica l 1,000 mg Branch tablet cholecalcif Yes 1000U Take 1,000 [facility] edmar, 6-07 Units by ity of vitamin D3, 11:23: mouth [place] (VITAMIN 09 daily. Medical D3) 1,000 Branch unit tablet CRANBERRY Yes Take by Unive rs FRUIT 6-07 mouth ity of EXTRACT 11:23: daily. [place] ([place] Medical ORAL) Branch CALCIUM Yes Take by [facility] ORAL 6-07 mouth ity of 11:23: daily. Medical Branch DOCOSAHEXAN Yes 1000mg Take 1,000 [facility] OIC 6-07 mg by ity of ACID/EPA 11:23: mouth [place] (FISH OIL 09 daily. Medical ORAL) Branch BIOTIN ORAL Yes Take by [facility] vers 6-07 mouth. ity of 11:23: Medical Branch FOLIC ACID 0 Yes Take by [facility] ers ORAL 6-07 mouth ity of 11:23: daily. [place] [facility] MULTIVIT 0 Yes Take by Univer s &MINERALS/F 6-07 mouth. ity of ERROUS FUM 11:23: [place] (MULTI 09 Medical VITAMIN Branch ORAL) METHYLCELLU 0 Yes Univer s LOSE (FIBER 6-07 ity of THERAPY 11:23: [facility]) 09 Medical Branch DOCUSATE Yes [...] by ity of vitamin D3, 11:23: mouth [place] (VITAMIN 09 daily. Medical D3) 1,000 Branch unit tablet CRANBERRY Yes Take by [facility] rs FRUIT 6-07 mouth ity of EXTRACT 11:23: daily. [place] (CRANBERRY 09 Medical ORAL) Branch CALCIUM Yes Take by [facility] ORAL 6-07 mouth ity of 11:23: daily. [place] [facility] Branch DOCOSAHEXAN Yes 1000mg Take 1,000 [facility] OIC 6-07 mg by ity of ACID/EPA 11:23: mouth [place] (FISH OIL 09 daily. Medical ORAL) Branch BIOTIN ORAL Yes Take by [facility] vers 6-07 mouth. ity of 11:23: [place] [address] Medical Branch FOLIC ACID Yes Take by [facility] ers ORAL 6-07 mouth ity of 11:23: daily. [place] [address] Medical Branch MULTIVIT Yes [facility] &MINERALS/F 6-07 mouth. ity of ERROUS FUM 11:23: [place] (MULTI 09 Medical VITAMIN Branch ORAL) METHYLCELLU Yes Univer s LOSE (FIBER 6-07 ity of THERAPY 11:23: [facility]) 09 Medical Branch DOCUSATE Yes Take by Univer s SODIUM 6-07 mouth. ity of (COLACE 11:23: [place] ORAL) 09 Medical Branch vitamin C Yes 1000mg Take 1,000 [facility] with derrell 6-07 mg by ity of hips 11:23: mouth [place] (VITAMIN C) 09 daily. Medica l 1,000 mg Branch tablet cholecalcif Yes 1000U Take 1,000 [facility] edmar, 6-07 Units by ity of vitamin D3, 11:23: mouth [place] (VITAMIN 09 daily. Medical D3) 1,000 Branch unit tablet CRANBERRY Yes Take by [facility] 6-07 mouth ity of EXTRACT 11:23: daily. [place] ([place] Medical ORAL) Branch CALCIUM Yes Take by [facility] ORAL 6-07 mouth ity of 11:23: daily. [place] [facility] Branch DOCOSAHEXAN Yes 1000mg Take 1,000 [facility] OIC 6-07 mg by ity of ACID/EPA 11:23: mouth [place] (FISH OIL 09 daily. Medical ORAL) Branch BIOTIN ORAL Yes Take by [facility] vers 6-07 mouth. ity of 11:23: [place] [facility] FOLIC ACID Yes Take by [facility] ers ORAL 6-07 mouth ity of 11:23: daily. [place] [facility] MULTIVIT Yes Take by [facility] s &MINERALS/F 6-07 mouth. ity of ERROUS FUM 11:23: [place] (MULTI 09 Medical VITAMIN Branch ORAL) METHYLCELLU Yes [facility] (FIBER 6-07 ity of THERAPY 11:23: [place] MISC) Medical Branch DOCUSATE Yes Take by [facility] SODIUM 6-07 mouth. ity of (COLACE 11:23: [place] ORAL) Medical Branch vitamin C Yes 1000mg Take 1,000 [facility] with derrell 6-07 mg by ity of hips 11:23: mouth [place] (VITAMIN C) 09 daily. Medica l 1,000 mg Branch tablet cholecalcif Yes 1000U Take 1,000 [facility] edmar, 6-07 Units by ity of vitamin D3, 11:23: mouth [place] (VITAMIN 09 daily. Medical D3) 1,000 Branch unit tablet CRANBERRY Yes Take by [facility] rs FRUIT 6-07 mouth ity of EXTRACT 11:23: daily. [place] ([place] Medical ORAL) Branch CALCIUM Yes Take by [facility] ORAL 6-07 mouth ity of 11:23: daily. [place] [facility] Branch DOCOSAHEXAN Yes 1000mg Take 1,000 [facility] OIC 6-07 mg by ity of ACID/EPA 11:23: mouth [place] (FISH OIL 09 daily. Medical ORAL) Branch BIOTIN ORAL Yes Take by [facility] vers 6-07 mouth. ity of 11:23: [place] [address] Medical Branch FOLIC ACID Yes Take by [facility] ers ORAL 6-07 mouth ity of 11:23: daily. [place] [address] Medical Branch MULTIVIT Yes Take by Univer s &MINERALS/F 6-07 mouth. ity of ERROUS FUM 11:23: [place] ([place] [address] Medical VITAMIN Branch ORAL) METHYLCELLU Yes Univer s LOSE (FIBER 6-07 ity of THERAPY 11:23: [facility]) 09 Medical Branch DOCUSATE Yes Take by Univer s SODIUM 6-07 mouth. ity of (COLACE 11:23: [place] ORAL) 09 Medical Branch vitamin C Yes 1000mg Take 1,000 [facility] with derrell 6-07 mg by ity of hips 11:23: mouth [place] (VITAMIN C) 09 daily. Medica l 1,000 mg Branch tablet cholecalcif Yes 1000U Take 1,000 [facility] edmar, 6-07 Units by ity of vitamin D3, 11:23: mouth [place] (VITAMIN 09 daily. Medical D3) 1,000 Branch unit tablet CRANBERRY Yes Take by [facility] 6-07 mouth ity of EXTRACT 11:23: daily. [place] ([place] Medical ORAL) Branch CALCIUM Yes Take by [facility] ORAL 6-07 mouth ity of 11:23: daily. [place] [address] Medical Branch DOCOSAHEXAN Yes 1000mg Take 1,000 [facility] OIC 6-07 mg by ity of ACID/EPA 11:23: mouth [place] (FISH OIL 09 daily. Medical ORAL) Branch BIOTIN ORAL Yes Take by [facility] vers 6-07 mouth. ity of 11:23: [place] [address] Medical Branch FOLIC ACID Yes Take by [facility] ers ORAL 6-07 mouth ity of 11:23: daily. [place] [address] Medical Branch MULTIVIT Yes Take by Univer s &MINERALS/F 6-07 mouth. ity of ERROUS FUM 11:23: [place] ([place] [address] Medical VITAMIN Branch ORAL) METHYLCELLU Yes Univer s LOSE (FIBER 6-07 ity of THERAPY 11:23: [place] MIS) 09 Medical Branch DOCUSATE Yes Take [facility] SOD[facility] 6-07 mouth. ity of (COLACE [...] unit tablet CRANBERRY Yes Take by [facility] FR[facility] 6-07 mouth ity of EXTRACT 11:23: daily. [place] ([place] Medical ORAL) Branch CALCIUM Yes Take by [facility] ORAL 6-07 mouth ity of 11:23: daily. [place] [facility] Branch DOCOSAHEXAN Yes 1000mg Take 1,000 [facility] OIC 6-07 mg by ity of ACID/EPA 11:23: mouth [place] (FISH OIL 09 daily. Medical ORAL) Branch BIOTIN ORAL Yes Take by [facility] vers 6-07 mouth. ity of 11:23: [place] [facility] FOLIC ACID Yes Take by [facility] ers ORAL 6-07 mouth ity of 11:23: daily. [place] [facility] MULTIVIT Yes [facility] &MINERALS/F 6-07 mouth. ity of ERROUS FUM 11:23: [place] (MULTI 09 Medical VITAMIN Branch ORAL) METHYLCELLU Yes Univer s LOSE (FIBER 6-07 ity of THERAPY 11:23: [place] MISC) 09 Medical Branch DOCUSATE Yes Take by [facility] SODIUM 6-07 mouth. ity of (COLACE 11:23: [place] ORAL) 09 Medical Branch vitamin C Yes 1000mg Take 1,000 [facility] with derrell 6-07 mg by ity of hips 11:23: mouth [place] (VITAMIN C) 09 daily. Medica l 1,000 mg Branch tablet cholecalcif Yes 1000U Take 1,000 [facility] edmar, 6-07 Units by ity of vitamin D3, 11:23: mouth [place] (VITAMIN 09 daily. Medical D3) 1,000 Branch unit tablet CRANBERRY Yes Take by [facility] rs FRUIT 6-07 mouth ity of EXTRACT 11:23: daily. [place] ([place]Y 09 Medical ORAL) Branch CALCIUM Yes Take by [facility] ORAL 6-07 mouth ity of 11:23: daily. [place] [facility] Branch DOCOSAHEXAN Yes 1000mg Take 1,000 [facility] OIC 6-07 mg by ity of ACID/EPA 11:23: mouth [place] (FISH OIL 09 daily. Medical ORAL) Branch BIOTIN ORAL Yes Take by [facility] vers 6-07 mouth. ity of 11:23: Medical Branch FOLIC ACID Yes Take by [facility] ers ORAL 6-07 mouth ity of 11:23: daily. [place] [facility] Branch MULTIVIT Yes Take by Univer s &MINERALS/F 6-07 mouth. ity of ERROUS FUM 11:23: [place] (MULTI 09 Medical VITAMIN Branch ORAL) METHYLCELLU Yes Univer s LOSE (FIBER 6-07 ity of THERAPY 11:23: [place] MISC) Medical Branch DOCUSATE Yes Take by [facility] s SODIUM 6-07 mouth. ity of (COLACE 11:23: [place] ORAL) Medical Branch vitamin C Yes 1000mg Take 1,000 [facility] with derrell 6-07 mg by ity of hips 11:23: mouth [place] (VITAMIN C) 09 daily. Medica l 1,000 mg Branch tablet cholecalcif Yes 1000U Take 1,000 [facility] edmar, 6-07 Units by ity of vitamin D3, 11:23: mouth [place] (VITAMIN 09 daily. Medical D3) 1,000 Branch unit tablet CRANBERRY Yes Take by [facility] rs FRUIT 6-07 mouth ity of EXTRACT 11:23: daily. [place] ([place] Medical ORAL) Branch CALCIUM Yes Take by [facility] ORAL 6-07 mouth ity of 11:23: daily. [place] [facility] Branch DOCOSAHEXAN Yes 1000mg Take 1,000 [facility] OIC 6-07 mg by ity of ACID/EPA 11:23: mouth [place] (FISH OIL 09 daily. Medical ORAL) Branch BIOTIN ORAL Yes Take by [facility] vers 6-07 mouth. ity of 11:23: [place] [facility] FOLIC ACID Yes Take by Univ ers ORAL 6-07 mouth ity of 11:23: daily. [place] [address] Medical Branch MULTIVIT Yes [facility] &MINERALS/F 6-07 mouth. ity of ERROUS FUM 11:23: [place] (MULTI Medical VITAMIN Branch ORAL) METHYLCELLU 0 Yes [facility] (FIBER 6-07 ity of THERAPY 11:23: [facility]) Medical Branch DOCUSATE Yes Take [...] by ity of vitamin D3, 11:23: mouth [place] (VITAMIN 09 daily. Medical D3) 1,000 Branch unit tablet CRANBERRY Yes Take by [facility] rs FRUIT 6-07 mouth ity of EXTRACT 11:23: daily. [place] ([place] 09 Medical ORAL) Branch CALCIUM Yes Take by [facility] ORAL 6-07 mouth ity of 11:23: daily. [place] [address] Medical Branch DOCOSAHEXAN Yes 1000mg Take 1,000 [facility] OIC 6-07 mg by ity of ACID/EPA 11:23: mouth [place] (FISH OIL 09 daily. Medical ORAL) Branch BIOTIN ORAL Yes Take by [facility] vers 6-07 mouth. ity of 11:23: [place] [address] Medical Branch FOLIC ACID Yes Take by [facility] ers ORAL 6-07 mouth ity of 11:23: daily. [place] [address] Medical Branch MULTIVIT Yes Take [facility] &MINERALS/F 6-07 mouth. ity of ERROUS FUM 11:23: [place] (MULTI Medical VITAMIN Branch ORAL) METHYLCELLU 0 Yes Univer s LOSE (FIBER 6-07 ity of THERAPY 11:23: [facility]) Medical Branch DOCUSATE 0 Yes Take [facility] SODIUM 6-07 mouth. ity of (COLACE [...] 6-07 mouth ity of EXTRACT 11:23: daily. [place] ([place] Medical ORAL) Branch CALCIUM Yes Take by [facility] ORAL 6-07 mouth ity of 11:23: daily. [place] [facility] Branch DOCOSAHEXAN Yes 1000mg Take 1,000 [facility] OIC 6-07 mg by ity of ACID/EPA 11:23: mouth [place] (FISH OIL 09 daily. Medical ORAL) Branch BIOTIN ORAL Yes Take by [facility] vers 6-07 mouth. ity of 11:23: [place] [facility] FOLIC ACID Yes Take by [facility] ers ORAL 6-07 mouth ity of 11:23: daily. [place] [facility] MULTIVIT Yes Take by [facility] &MINERALS/F 6-07 mouth. ity of ERROUS FUM 11:23: [place] (MULTI 09 Medical VITAMIN Branch ORAL) METHYLCELLU Yes Univer s LOSE (FIBER 6-07 ity of THERAPY 11:23: [place] MISC) 09 Medical Branch DOCUSATE Yes Take by [facility] s SODIUM 6-07 mouth. ity of (COLACE 11:23: [place] ORAL) 09 Medical Branch vitamin C Yes 1000mg Take 1,000 [facility] with derrell 6-07 mg by ity of hips 11:23: mouth [place] (VITAMIN C) 09 daily. Medica l 1,000 mg Branch tablet cholecalcif 0 Yes 1000U Take 1,000 [facility] edmar, 6-07 Units by ity of vitamin D3, 11:23: mouth [place] (VITAMIN 09 daily. Medical D3) 1,000 Branch unit tablet CRANBERRY 0 Yes Take by [facility] rs FRUIT 6-07 mouth ity of EXTRACT 11:23: daily. [place] ([place] Medical ORAL) Branch CALCIUM Yes Take by [facility] ORAL 6-07 mouth ity of 11:23: daily. [place] [facility] Branch DOCOSAHEXAN Yes 1000mg Take 1,000 [facility] OIC 6-07 mg by ity of ACID/EPA 11:23: mouth [place] (FISH OIL 09 daily. Medical ORAL) Branch BIOTIN ORAL Yes Take by [facility] vers 6-07 mouth. ity of 11:23: Medical Branch FOLIC ACID Yes Take by Univ ers ORAL 6-07 mouth ity of 11:23: daily. [place] [facility] MULTIVIT Yes Take by Univer s &MINERALS/F 6-07 mouth. ity of ERROUS FUM 11:23: [place] (MULTI 09 Medical VITAMIN Branch ORAL) METHYLCELLU Yes [facility] (FIBER 6-07 ity of THERAPY 11:23: [place] MISC) 09 Medical Branch DOCUSATE Yes Take by Un[facility] s SODIUM 6-07 mouth. ity of (COLACE 11:23: [place] ORAL) 09 Medical Branch vitamin C Yes 1000mg Take 1,000 [facility] with derrell 6-07 mg by ity of hips 11:23: mouth [place] (VITAMIN C) 09 daily. Medica l 1,000 mg Branch tablet cholecalcif Yes 1000U Take 1,000 [facility] edmar, 6-07 Units by ity of vitamin D3, 11:23: mouth [place] (VITAMIN 09 daily. Medical D3) 1,000 Branch unit tablet CRANBERRY Yes Take by [facility] rs FRUIT 6-07 mouth ity of EXTRACT 11:23: daily. [place] (CRANBERRY Medical ORAL) Branch CALCIUM Yes Take by [facility] ORAL 6-07 mouth ity of 11:23: daily. [place] [facility] DOCOSAHEXAN Yes 1000mg Take 1,000 [facility] OIC 6-07 mg by ity of ACID/EPA 11:23: mouth [place] (FISH OIL 09 daily. Medical ORAL) Branch BIOTIN ORAL Yes Take by Uni vers 6-07 mouth. ity of 11:23: Medical Branch FOLIC ACID Yes Take by Univ ers ORAL 6-07 mouth ity of 11:23: daily. [place] [facility] MULTIVIT Yes Take by Univer s &MINERALS/F 6-07 mouth. ity of ERROUS FUM 11:23: [place] (MULTI 09 Medical VITAMIN Branch ORAL) METHYLCELLU 2021-0 Yes Univer s LOSE (FIBER 6-07 ity of THERAPY 11:23: [facility]) 09 Medical Branch DOCUSATE 0 [...] by ity of vitamin D3, 11:23: mouth [place] (VITAMIN 09 daily. Medical D3) 1,000 Branch unit tablet CRANBERRY Yes Take by [facility] rs FRUIT 6-07 mouth ity of EXTRACT 11:23: daily. [place] (CRANBERRY 09 Medical ORAL) Branch CALCIUM Yes Take by [facility] ORAL 6-07 mouth ity of 11:23: daily. [place] 09 Medical Branch DOCOSAHEXAN Yes 1000mg Take 1,000 [facility] OIC 6-07 mg by ity of ACID/EPA 11:23: mouth [place] (FISH OIL 09 daily. Medical ORAL) Branch BIOTIN ORAL Yes Take by Uni vers 6-07 mouth. ity of 11:23: [place] [address] Medical Branch FOLIC ACID 0 Yes Take by Univ ers ORAL 6-01 mouth ity of 11:58: daily. [place] [address] Medical Branch [facility]IVIT [facility] mouth. ity of ERROUS FUM 11:58: [place] (MULTI 16 Medical VITAMIN Branch ORAL) METHYLCELLU 0 Yes Univer s LOSE (FIBER 6-01 ity of THERAPY 11:58: [facility]) 16 Medical Branch DOCUSATE 0 Yes Take by Univer s SODIUM 6-01 mouth. ity of (COLACE 11:58: [place] ORAL) 16 Medical Branch vitamin C 0 Yes 1000mg Take 1,000 [facility] with derrell 6-01 mg by ity of hips 11:58: mouth [place] (VITAMIN C) 16 daily. Medica l 1,000 mg Branch tablet cholecalcif 2021-0 Yes 1000U Take 1,000 [facility] edmar, 6-01 Units by ity of vitamin D3, 11:58: mouth [place] (VITAMIN 16 daily. Medical D3) 1,000 Branch unit tablet CRANBERRY Yes Take by [facility] rs FRUIT 6- mouth ity of EXTRACT 11:58: daily. [place] (CRANBERRY 16 Medical ORAL) [place] CALCIUM Yes Take by Univers ORAL 6-01 mouth ity of 11:58: daily. [address] DOCOSAHEXAN Yes 1000mg Take 1,000 [facility] OIC 6- mg by ity of ACID/EPA 11:58: mouth [place] (FISH OIL 16 daily. Medical ORAL) [place] BIOTIN ORAL Yes Take by Uni vers 6-01 mouth. ity of 11:58: [address] metformin Yes [id number] 500mg Take 1 U nivers ER 500 mg 5-31 tablet by ity o f 24 hr 00:00: mouth [place] tablet 00 daily with Medical breakfast. Branch STOP REGULAR METFORMIN. metformin Yes [id number] 500mg Take 1 U nivers ER 500 mg 5-31 tablet by ity o f 24 hr 00:00: mouth [place] tablet 00 daily with Medical breakfast. Branch STOP REGULAR METFORMIN. metformin Yes [id number] 500mg Take 1 U nivers ER 500 mg 5-31 tablet by ity o f 24 hr 00:00: mouth [place] tablet 00 daily with Medical breakfast. Branch STOP REGULAR METFORMIN. metformin Yes [id number] 500mg Take 1 U nivers ER 500 mg 5-31 tablet by ity o f 24 hr 00:00: mouth [place] tablet 00 daily with Medical breakfast. Branch STOP REGULAR METFORMIN. metformin Yes [id number] 500mg Take 1 U nivers ER 500 mg 5-31 tablet by ity o f 24 hr 00:00: mouth [place] tablet 00 daily with Medical breakfast. Branch STOP REGULAR METFORMIN. metformin Yes [id number] 500mg Take 1 U nivers ER 500 mg 5-31 tablet by ity o f 24 hr 00:00: mouth [place] tablet 00 daily with Medical breakfast. Branch STOP REGULAR METFORMIN. metformin Yes [id number] 500mg Take 1 U nivers ER 500 mg 5-31 tablet by ity o f 24 hr 00:00: mouth [place] tablet 00 daily with Medical breakfast. Branch STOP REGULAR METFORMIN. metformin 2021-0 Yes [id number] 500mg Take 1 U nivers ER 500 mg 5-31 tablet by ity o f 24 hr 00:00: mouth [place] tablet 00 daily with Medical breakfast. Branch STOP REGULAR METFORMIN. metformin 2021-0 Yes [id number] 500mg Take 1 U nivers ER 500 mg 5-31 tablet by ity o f 24 hr 00:00: mouth [place] tablet 00 daily with Medical breakfast. Branch STOP REGULAR METFORMIN. metformin 2021-0 Yes [id number] 500mg Take 1 U nivers ER 500 mg 5-31 tablet by ity o f 24 hr 00:00: mouth [place] tablet 00 daily with Medical breakfast. Branch STOP REGULAR METFORMIN. metformin 2021-0 Yes [id number] 500mg Take 1 U nivers ER 500 mg 5-31 tablet by ity o f 24 hr 00:00: mouth [place] tablet 00 daily with Medical breakfast. Branch STOP REGULAR METFORMIN. metformin 2021-0 Yes [id number] 500mg Take 1 U nivers ER 500 mg 5-31 tablet by ity o f 24 hr 00:00: mouth [place] tablet 00 daily with Medical breakfast. Branch STOP REGULAR METFORMIN. metformin 2021-0 Yes [id number] 500mg Take 1 U nivers ER 500 mg 5-31 tablet by ity o f 24 hr 00:00: mouth [place] tablet 00 daily with Medical breakfast. Branch STOP REGULAR METFORMIN. metformin 2021-0 Yes [id number] 500mg Take 1 U nivers ER 500 mg 5-31 tablet by ity o f 24 hr 00:00: mouth [place] tablet 00 daily with Medical breakfast. Branch STOP REGULAR METFORMIN. metformin 2021-0 Yes [id number] 500mg Take 1 U nivers ER 500 mg 5-31 tablet by ity o f 24 hr 00:00: mouth [place] tablet 00 daily with Medical breakfast. Branch STOP REGULAR METFORMIN. metformin 2021-0 Yes [id number] 500mg Take 1 U nivers ER 500 mg 5-31 tablet by ity o f 24 hr 00:00: mouth [place] tablet 00 daily with Medical breakfast. Branch STOP REGULAR METFORMIN. metformin 2021-0 Yes [id number] 500mg Take 1 U nivers ER 500 mg 5-31 tablet by ity o f 24 hr 00:00: mouth [place] tablet 00 daily with Medical breakfast. Branch STOP REGULAR METFORMIN. metformin 2021-0 Yes [id number] 500mg Take 1 U nivers ER 500 mg 5-31 tablet by ity o f 24 hr 00:00: mouth [place] tablet 00 daily with Medical breakfast. Branch STOP REGULAR METFORMIN. metformin 2021-0 Yes [id number] 500mg Take 1 U nivers ER 500 mg 5-31 tablet by ity o f 24 hr 00:00: mouth [place] tablet 00 daily with Medical breakfast. Branch STOP REGULAR METFORMIN. metformin 2021-0 Yes [id number] 500mg Take 1 U nivers ER 500 mg 5-31 tablet by ity o f 24 hr 00:00: mouth [place] tablet 00 daily with Medical breakfast. Branch STOP REGULAR METFORMIN. metformin 2021-0 Yes [id number] 500mg Take 1 U nivers ER 500 mg 5-31 tablet by ity o f 24 hr 00:00: mouth [place] tablet 00 daily with Medical breakfast. Branch STOP REGULAR METFORMIN. metformin 2021-0 Yes [id number] 500mg Take 1 U nivers ER 500 mg 5-31 tablet by ity o f 24 hr 00:00: mouth [place] tablet 00 daily with Medical breakfast. Branch STOP REGULAR METFORMIN. metformin 2021-0 Yes [id number] 500mg Take 1 U nivers ER 500 mg 5-31 tablet by ity o f 24 hr 00:00: mouth [place] tablet 00 daily with Medical breakfast. Branch STOP REGULAR METFORMIN. metformin 2021-0 Yes [id number] 500mg Take 1 U nivers ER 500 mg 5-31 tablet by ity o f 24 hr 00:00: mouth [place] tablet 00 daily with Medical breakfast. Branch STOP REGULAR METFORMIN. metformin 2021-0 Yes [id number] 500mg Take 1 U nivers ER 500 mg 5-31 tablet by ity o f 24 hr 00:00: mouth [place] tablet 00 daily with Medical breakfast. Branch STOP REGULAR METFORMIN. metformin 2021-0 Yes [id number] 500mg Take 1 U nivers ER 500 mg 5-31 tablet by ity o f 24 hr 00:00: mouth [place] tablet 00 daily with Medical breakfast. Branch STOP REGULAR METFORMIN. metformin 2021-0 Yes [id number] 500mg Take 1 U nivers ER 500 mg 5-31 tablet by ity o f 24 hr 00:00: mouth [place] tablet 00 daily with Medical breakfast. Branch STOP REGULAR METFORMIN. metformin 2021-0 Yes [id number] 500mg Take 1 U nivers ER 500 mg 5-31 tablet by ity o f 24 hr 00:00: mouth [place] tablet 00 daily with Medical breakfast. Branch STOP REGULAR METFORMIN. metformin 2021-0 Yes [id number] 500mg Take 1 U nivers ER 500 mg 5-31 tablet by ity o f 24 hr 00:00: mouth [place] tablet 00 daily with Medical breakfast. Branch STOP REGULAR METFORMIN. metformin 2021-0 Yes [id number] 500mg Take 1 U nivers ER 500 mg 5-31 tablet by ity o f 24 hr 00:00: mouth [place] tablet 00 daily with Medical breakfast. Branch STOP REGULAR METFORMIN. metformin 2021-0 Yes [id number] 500mg Take 1 U nivers ER 500 mg 5-31 tablet by ity o f 24 hr 00:00: mouth [place] tablet 00 daily with Medical breakfast. Branch STOP REGULAR METFORMIN. metformin 2021-0 Yes [id number] 500mg Take 1 U nivers ER 500 mg 5-31 tablet by ity o f 24 hr 00:00: mouth [place] tablet 00 daily with Medical breakfast. Branch STOP REGULAR METFORMIN. metformin 2021-0 Yes [id number] 500mg Take 1 U nivers ER 500 mg 5-31 tablet by ity o f 24 hr 00:00: mouth [place] tablet 00 daily with Medical breakfast. Branch STOP REGULAR METFORMIN. metformin 2021-0 Yes [id number] 500mg Take 1 U nivers ER 500 mg 5-31 tablet by ity o f 24 hr 00:00: mouth [place] tablet 00 daily with Medical breakfast. Branch STOP REGULAR METFORMIN. metformin 2021-0 Yes [id number] 500mg Take 1 U nivers ER 500 mg 5-31 tablet by ity o f 24 hr 00:00: mouth [place] tablet 00 daily with Medical breakfast. Branch STOP REGULAR METFORMIN. metformin 2021-0 Yes [id number] 500mg Take 1 U nivers ER 500 mg 5-31 tablet by ity o f 24 hr 00:00: mouth [place] tablet 00 daily with Medical breakfast. Branch STOP REGULAR METFORMIN. metformin 2021-0 Yes [id number] 500mg Take 1 U nivers ER 500 mg 5-31 tablet by ity o f 24 hr 00:00: mouth [place] tablet 00 daily with Medical breakfast. Branch STOP REGULAR METFORMIN. metformin 2021-0 Yes [id number] 500mg Take 1 U nivers ER 500 mg 5-31 tablet by ity o f 24 hr 00:00: mouth [place] tablet 00 daily with Medical breakfast. Branch STOP REGULAR METFORMIN. metformin 2021-0 Yes [id number] 500mg Take 1 U nivers ER 500 mg 5-31 tablet by ity o f 24 hr 00:00: mouth [place] tablet 00 daily with Medical breakfast. Branch STOP REGULAR METFORMIN. metformin 2021-0 Yes [id number] 500mg Take 1 U nivers ER 500 mg 5-31 tablet by ity o f 24 hr 00:00: mouth [place] tablet 00 daily with Medical breakfast. Branch STOP REGULAR METFORMIN. metformin 2021-0 Yes [id number] 500mg Take 1 U nivers ER 500 mg 5-31 tablet by ity o f 24 hr 00:00: mouth [place] tablet 00 daily with Medical breakfast. Branch STOP REGULAR METFORMIN. metformin 2021-0 Yes [id number] 500mg Take 1 U nivers ER 500 mg 5-31 tablet by ity o f 24 hr 00:00: mouth [place] tablet 00 daily with Medical breakfast. Branch STOP REGULAR METFORMIN. metformin 2021-0 Yes [id number] 500mg Take 1 U nivers ER 500 mg 5-31 tablet by ity o f 24 hr 00:00: mouth [place] tablet 00 daily with Medical breakfast. Branch STOP REGULAR METFORMIN. metformin 2021-0 Yes [id number] 500mg Take 1 U nivers ER 500 mg 5-31 tablet by ity o f 24 hr 00:00: mouth [place] tablet 00 daily with Medical breakfast. Branch STOP REGULAR METFORMIN. metformin 2021-0 Yes [id number] 500mg Take 1 U nivers ER 500 mg 5-31 tablet by ity o f 24 hr 00:00: mouth [place] tablet 00 daily with Medical breakfast. Branch STOP REGULAR METFORMIN. metformin 2021-0 Yes [id number] 500mg Take 1 U nivers ER 500 mg 5-31 tablet by ity o f 24 hr 00:00: mouth [place] tablet 00 daily with Medical breakfast. Branch STOP REGULAR METFORMIN. metformin 2021-0 Yes [id number] 500mg Take 1 U nivers ER 500 mg 5-31 tablet by ity o f 24 hr 00:00: mouth [place] tablet 00 daily with Medical breakfast. Branch STOP REGULAR METFORMIN. metformin 2021-0 Yes [id number] 500mg Take 1 U nivers ER 500 mg 5-31 tablet by ity o f 24 hr 00:00: mouth [place] tablet 00 daily with Medical breakfast. Branch STOP REGULAR METFORMIN. metformin 2021-0 2022- No [id number] 500mg Take 1 [facility] ER 500 mg 5-31 10-13 tablet by ity of 24 hr 00:00: 00:00 mouth [place] tablet 00 :00 daily with Medical breakfast. Branch STOP REGULAR METFORMIN. ibuprofen 2021-0 Yes [id number] 600mg Take 1 [facility] 600 mg 5-19 [id number] tablet by ity of tablet 00:00: mouth [place] 00 every 6 Medical (six) Branch hours as needed for Pain (scale 4-6). ibuprofen 2021-0 Yes [id number] 600mg Take 1 [facility] 600 mg 5-19 [id number] tablet by ity of tablet 00:00: mouth [place] 00 every 6 Medical (six) Branch hours as needed for Pain (scale 4-6). ibuprofen 2021-0 Yes [id number] 600mg Take 1 [facility] 600 mg 5-19 [id number] tablet by ity of tablet 00:00: mouth [place] 00 every 6 Medical (six) Branch hours as needed for Pain (scale 4-6). ibuprofen 2021-0 Yes [id number] 600mg Take 1 [facility] 600 mg 5-19 [id number] tablet by ity of tablet 00:00: mouth [place] 00 every 6 Medical (six) Branch hours as needed for Pain (scale 4-6). ibuprofen 2021-0 Yes [id number] 600mg Take 1 [facility] 600 mg 5-19 [id number] tablet by ity of tablet 00:00: mouth [place] 00 every 6 Medical (six) Branch hours as needed for Pain (scale 4-6). ibuprofen 2021-0 Yes [id number] 600mg Take 1 [facility] 600 mg 5-19 [id number] tablet by ity of tablet 00:00: mouth [place] 00 every 6 Medical (six) Branch hours as needed for Pain (scale 4-6). ibuprofen 2021-0 Yes [id number] 600mg Take 1 [facility] 600 mg 5-19 [id number] tablet by ity of tablet 00:00: mouth [place] 00 every 6 Medical (six) Branch hours as needed for Pain (scale 4-6). ibuprofen 2021-0 Yes [id number] 600mg Take 1 [facility] 600 mg 5-19 [id number] tablet by ity of tablet 00:00: mouth [place] 00 every 6 Medical (six) Branch hours as needed for Pain (scale 4-6). ibuprofen 2022-0 Yes [id number] 600mg Take 1 [facility] 600 mg 5-19 [id number] tablet by ity of tablet 00:00: mouth [place] 00 every 6 Medical (six) Branch hours as needed for Pain (scale 4-6). ibuprofen 2022-0 Yes [id number] 600mg Take 1 [facility] 600 mg 5-19 [id number] tablet by ity of tablet 00:00: mouth [place] 00 every 6 Medical (six) Branch hours as needed for Pain (scale 4-6). ibuprofen 2022-0 Yes [id number] 600mg Take 1 [facility] 600 mg 5-19 [id number] tablet by ity of tablet 00:00: mouth [place] 00 every 6 Medical (six) Branch hours as needed for Pain (scale 4-6). ibuprofen 2022-0 Yes [id number] 600mg Take 1 [facility] 600 mg 5-19 [id number] tablet by ity of tablet 00:00: mouth [place] 00 every 6 Medical (six) Branch hours as needed for Pain (scale 4-6). ibuprofen 2022-0 Yes [id number] 600mg Take 1 [facility] 600 mg 5-19 [id number] tablet by ity of tablet 00:00: mouth [place] 00 every 6 Medical (six) Branch hours as needed for Pain (scale 4-6). ibuprofen 2022-0 Yes [id number] 600mg Take 1 [facility] 600 mg 5-19 [id number] tablet by ity of tablet 00:00: mouth [place] 00 every 6 Medical (six) Branch hours as needed for Pain (scale 4-6). ibuprofen 2022-0 Yes [id number] 600mg Take 1 [facility] 600 mg 5-19 [id number] tablet by ity of tablet 00:00: mouth [place] 00 every 6 Medical (six) Branch hours as needed for Pain (scale 4-6). ibuprofen 2022-0 Yes [id number] 600mg Take 1 [facility] 600 mg 5-19 [id number] tablet by ity of tablet 00:00: mouth [place] 00 every 6 Medical (six) Branch hours as needed for Pain (scale 4-6). ibuprofen 2022-0 Yes [id number] 600mg Take 1 [facility] 600 mg 5-19 [id number] tablet by ity of tablet 00:00: mouth [place] 00 every 6 Medical (six) Branch hours as needed for Pain (scale 4-6). ibuprofen 2022-0 Yes [id number] 600mg Take 1 [facility] 600 mg 5-19 [id number] tablet by ity of tablet 00:00: mouth [place] 00 every 6 Medical (six) Branch hours as needed for Pain (scale 4-6). ibuprofen 2022-0 Yes [id number] 600mg Take 1 [facility] 600 mg 5-19 [id number] tablet by ity of tablet 00:00: mouth [place] 00 every 6 Medical (six) Branch hours as needed for Pain (scale 4-6). ibuprofen 2022-0 Yes [id number] 600mg Take 1 [facility] 600 mg 5-19 [id number] tablet by ity of tablet 00:00: mouth [place] 00 every 6 Medical (six) Branch hours as needed for Pain (scale 4-6). ibuprofen 2022-0 Yes [id number] 600mg Take 1 [facility] 600 mg 5-19 [id number] tablet by ity of tablet 00:00: mouth [place] 00 every 6 Medical (six) Branch hours as needed for Pain (scale 4-6). ibuprofen 2022-0 Yes [id number] 600mg Take 1 [facility] 600 mg 5-19 [id number] tablet by ity of tablet 00:00: mouth [place] 00 every 6 Medical (six) Branch hours as needed for Pain (scale 4-6). ibuprofen 2022-0 Yes [id number] 600mg Take 1 [facility] 600 mg 5-19 [id number] tablet by ity of tablet 00:00: mouth [place] 00 every 6 Medical (six) Branch hours as needed for Pain (scale 4-6). ibuprofen 2022-0 Yes [id number] 600mg Take 1 [facility] 600 mg 5-19 [id number] tablet by ity of tablet 00:00: mouth [place] 00 every 6 Medical (six) Branch hours as needed for Pain (scale 4-6). ibuprofen 2022-0 Yes [id number] 600mg Take 1 [facility] 600 mg 5-19 [id number] tablet by ity of tablet 00:00: mouth [place] 00 every 6 Medical (six) Branch hours as needed for Pain (scale 4-6). ibuprofen 2022-0 Yes [id number] 600mg Take 1 [facility] 600 mg 5-19 [id number] tablet by ity of tablet 00:00: mouth [place] 00 every 6 Medical (six) Branch hours as needed for Pain (scale 4-6). ibuprofen 2022-0 Yes [id number] 600mg Take 1 [facility] 600 mg 5-19 [id number] tablet by ity of tablet 00:00: mouth [place] 00 every 6 Medical (six) Branch hours as needed for Pain (scale 4-6). ibuprofen 2022-0 Yes [id number] 600mg Take 1 [facility] 600 mg 5-19 [id number] tablet by ity of tablet 00:00: mouth [place] 00 every 6 Medical (six) Branch hours as needed for Pain (scale 4-6). ibuprofen 2022-0 Yes [id number] 600mg Take 1 [facility] 600 mg 5-19 [id number] tablet by ity of tablet 00:00: mouth [place] 00 every 6 Medical (six) Branch hours as needed for Pain (scale 4-6). ibuprofen 2022-0 Yes [id number] 600mg Take 1 [facility] 600 mg 5-19 [id number] tablet by ity of tablet 00:00: mouth [place] 00 every 6 Medical (six) Branch hours as needed for Pain (scale 4-6). ibuprofen 2022-0 Yes [id number] 600mg Take 1 [facility] 600 mg 5-19 [id number] tablet by ity of tablet 00:00: mouth [place] 00 every 6 Medical (six) Branch hours as needed for Pain (scale 4-6). ibuprofen 2022-0 Yes [id number] 600mg Take 1 [facility] 600 mg 5-19 [id number] tablet by ity of tablet 00:00: mouth [place] 00 every 6 Medical (six) Branch hours as needed for Pain (scale 4-6). ibuprofen 2022-0 Yes [id number] 600mg Take 1 [facility] 600 mg 5-19 [id number] tablet by ity of tablet 00:00: mouth [place] 00 every 6 Medical (six) Branch hours as needed for Pain (scale 4-6). ibuprofen 2022-0 Yes [id number] 600mg Take 1 [facility] 600 mg 5-19 [id number] tablet by ity of tablet 00:00: mouth [place] 00 every 6 Medical (six) Branch hours as needed for Pain (scale 4-6). ibuprofen 2022-0 Yes [id number] 600mg Take 1 [facility] 600 mg 5-19 [id number] tablet by ity of tablet 00:00: mouth [place] 00 every 6 Medical (six) Branch hours as needed for Pain (scale 4-6). ibuprofen 2022-0 Yes [id number] 600mg Take 1 [facility] 600 mg 5-19 [id number] tablet by ity of tablet 00:00: mouth [place] 00 every 6 Medical (six) Branch hours as needed for Pain (scale 4-6). ibuprofen 2021-0 2021- No [id number] 600mg Take 1 [facility] 600 mg 02-11 [id number] tablet by ity o f tablet 00:00: 00:00 mouth [place] 00 :00 every 6 Medical (six) Branch hours as needed for Pain (scale 4-6). ibuprofen 2021-0 2021- No [id number] 600mg Take 1 [facility] 600 mg 02-11 [id number] tablet by ity o f tablet 00:00: 00:00 mouth [place] 00 :00 every 6 Medical (six) Branch hours as needed for Pain (scale 4-6). ibuprofen 2021-0 2021- No [id number] 600mg Take 1 [facility] 600 mg 02-11 [id number] tablet by ity o f tablet 00:00: 00:00 mouth [place] 00 :00 every 6 Medical (six) Branch hours as needed for Pain (scale 4-6). topiramate 2021-0 Yes [id number] 50mg Take 2 [facility] 25 mg 5-16 tablets by ity of tablet 00:00: mouth [place] (two) Medical times Branch daily. topiramate 2021-0 Yes [id number] 50mg Take 2 Univers 25 mg 5-16 tablets by ity of tablet 00:00: mouth [place] (two) Medical times Branch daily. topiramate 2021-0 Yes [id number] 50mg Take 2 Univers 25 mg 5-16 tablets by ity of tablet 00:00: [address] (two) Medical times Branch daily. topiramate 2021-0 Yes [id number] 50mg Take 2 [facility] 25 mg 5-16 tablets by ity of tablet 00:00: mouth [place] (two) Medical times Branch daily. topiramate 2022-0 Yes [id number] 50mg Take 2 [facility] 25 mg 5-16 tablets by ity of tablet 00:00: mouth [place] (two) Medical times Branch daily. topiramate 2022-0 Yes [id number] 50mg Take 2 [facility] 25 mg 5-16 tablets by ity of tablet 00:00: mouth [address] [place] [address] (two) Medical times Branch daily. topiramate 2-0 Yes [id number] 50mg Take 2 [facility] 25 mg 5-16 tablets by ity of tablet 00:00: mouth 2 (two) Medical times Branch daily. topiramate 2022-0 Yes [id number] 50mg Take 2 [facility] 25 mg 5-16 tablets by ity of tablet 00:00: mouth 2 (two) Medical times Branch daily. topiramate 2022-0 Yes [id number] 50mg Take 2 [facility] 25 mg 5-16 tablets by ity of tablet 00:00: mouth 2 (two) Medical times Branch daily. SUMAtriptan 2-0 Yes [id number] 50mg Take 1 [facility] 50 mg 5-16 tablet by ity of tablet 00:00: mouth as [place] 00 needed for Medical Migraine. Branch topiramate 2-0 Yes [id number] 50mg Take 2 [facility] 25 mg 5-16 tablets by ity of tablet 00:00: mouth 2 (two) Medical times Branch daily. SUMAtriptan 2-0 Yes [id number] 50mg Take 1 [facility] 50 mg 5-16 tablet by ity of tablet 00:00: mouth as [place] 00 needed for Medical Migraine. Branch topiramate 2021-0 Yes [id number] 50mg Take 2 [facility] 25 mg 5-16 tablets by ity of tablet 00:00: mouth (two) Medical times Branch daily. SUMAtriptan 2-0 Yes [id number] 50mg Take 1 [facility] 50 mg 5-16 tablet by ity of tablet 00:00: mouth as [place] 00 needed for Medical Migraine. Branch topiramate 2-0 Yes [id number] 50mg Take 2 [facility] 25 mg 5-16 tablets by ity of tablet 00:00: mouth 2 (two) Medical times Branch daily. SUMAtriptan 2022-0 Yes [id number] 50mg Take 1 [facility] 50 mg 5-16 tablet by ity of tablet 00:00: mouth as [place] 00 needed for Medical Migraine. Branch topiramate 2022-0 Yes [id number] 50mg Take 2 [facility] 25 mg 5-16 tablets by ity of tablet 00:00: mouth 2 (two) Medical times Branch daily. SUMAtriptan 2022-0 Yes [id number] 50mg Take 1 [facility] 50 mg 5-16 tablet by ity of tablet 00:00: mouth as [place] 00 needed for Medical Migraine. Branch topiramate 2021-0 Yes [id number] 50mg Take 2 [facility] 25 mg 5-16 tablets by ity of tablet 00:00: mouth 2 (two) Medical times Branch daily. SUMAtriptan 2021-0 Yes [id number] 50mg Take 1 [facility] 50 mg 5-16 tablet by ity of tablet 00:00: mouth as 00 needed for Medical Migraine. Branch topiramate 2021-0 Yes [id number] 50mg Take 2 [facility] 25 mg 5-16 tablets by ity of tablet 00:00: mouth 2 (two) Medical times Branch daily. topiramate 2021-0 Yes [id number] 50mg Take 2 [facility] 25 mg 5-16 tablets by ity of tablet 00:00: mouth 2 (two) Medical times Branch daily. topiramate 2021-0 Yes [id number] 50mg Take 2 [facility] 25 mg 5-16 tablets by ity of tablet 00:00: mouth 2 (two) Medical times Branch daily. topiramate 2021-0 Yes [id number] 50mg Take 2 [facility] 25 mg 5-16 tablets by ity of tablet 00:00: mouth 2 (two) Medical times Branch daily. topiramate 2021-0 Yes [id number] 50mg Take 2 [facility] 25 mg 5-16 tablets by ity of tablet 00:00: mouth 2 (two) Medical times Branch daily. topiramate 2021-0 Yes [id number] 50mg Take 2 [facility] 25 mg 5-16 tablets by ity of tablet 00:00: mouth 2 (two) Medical times Branch daily. topiramate 2021-0 202- No [id number] 50mg Take 2 [facility] 25 mg 5-16 09-01 tablets by ity of tablet 00:00: 00:00 mouth 2 [place] 00 :00 (two) Medical times Branch daily. SUMAtriptan 2021-0 2022- No [id number] 50mg Take 1 [facility] 50 mg 5-16 [...] PadM 5-08 Dose to ity of 00:00: [facility](s) [place] 00 before Medical meals. Branch ALCOHOL 2021-0 Yes 1{dose} Apply 1 Univ ers PADS PadM 5-08 Dose to ity of 00:00: [facility]) [place] 00 before Medical meals. Branch ALCOHOL 2021-0 Yes 1{dose} Apply 1 Univ ers PADS PadM 5-08 Dose to ity of 00:00: [facility]) [place] 00 before Medical meals. Branch ALCOHOL 2021-0 Yes 1{dose} Apply 1 Univ ers PADS PadM 5-08 Dose to ity of 00:00: [facility]) [place] 00 before Medical meals. Branch ALCOHOL 2021-0 Yes 1{dose} Apply 1 Univ ers PADS PadM 5-08 Dose to ity of 00:00: [facility]() [place] 00 before Medical meals. Branch ALCOHOL 2021-0 Yes 1{dose} Apply 1 Univ ers PADS PadM 5-08 Dose to ity of 00:00: [facility]) [place] 00 before Medical meals. Branch ALCOHOL 0 Yes 1{dose} Apply 1 Univ ers PADS PadM 5-08 Dose to ity of 00:00: [facility]() [place] 00 before Medical meals. Branch ALCOHOL 2021-0 Yes 1{dose} Apply 1 Univ ers PADS PadM 5-08 Dose to ity of 00:00: [facility]() [place] 00 before Medical meals. Branch ALCOHOL 2021-0 Yes 1{dose} Apply 1 Univ ers PADS PadM 5-08 Dose to ity of 00:00: [facility]() [place] 00 before Medical meals. Branch ALCOHOL 2021-0 Yes 1{dose} Apply 1 Univ ers PADS PadM 5-08 Dose to ity of 00:00: [facility] [place] 00 before Medical meals. Branch ALCOHOL 2021- No 1{dose} Apply 1 [facility] vers PADS PadM 5-08 -22 Dose to ity of 00:00: 00:00 [facility]() [place] 00 :00 before Medical meals. Branch ALCOHOL 2021-2021- No 1{dose} Apply 1 [facility] vers PADS PadM 5-08 -22 Dose to ity of 00:00: 00:00 [facility] [place] 00 :00 before Medical meals. Branch ALCOHOL 2021- No 1{dose} Apply 1 [facility] vers PADS PadM 01-31 Dose to ity of 00:00: 00:00 [facility] [place] 00 :00 before Medical meals. Branch pregabalin 0 Yes [id number] 150mg Take 1 [facility] 150 mg 4-29 capsule by ity of capsule 00:00: mouth 3 [place] (three) Medical times Branch daily. busPIRone 2021-0 Yes [id number] 20mg Take 2 [facility] 10 mg 4-29 tablets by ity of tablet 00:00: mouth [place] (two) Medical times Branch daily. citalopram 2021-0 Yes [id number] 40mg Take 1 [facility] nivers 40 mg 4-29 tablet by ity of tablet 00:00: mouth [place] daily. Medical Branch pregabalin 2021-0 Yes [id number] 150mg Take 1 [facility] 150 mg 4-29 capsule by ity of capsule 00:00: mouth [place] (three) Medical times Branch daily. busPIRone 2021-0 Yes [id number] 20mg Take 2 [facility] 10 mg 4-29 tablets by ity of tablet 00:00: mouth [place] (two) Medical times Branch daily. citalopram 2021-0 Yes [id number] 40mg Take 1 [facility] nivers 40 mg 4-29 tablet by ity of tablet 00:00: mouth [place] 00 daily. Medical Branch pregabalin 2021-0 Yes [id number] 150mg Take 1 [facility] 150 mg 4-29 capsule by ity of capsule 00:00: mouth 3 [place] (three) Medical times Branch daily. busPIRone 2021-0 Yes [id number] 20mg Take 2 [facility] 10 mg 4-29 tablets by ity of tablet 00:00: mouth [place] (two) Medical times Branch daily. citalopram 2021-0 Yes [id number] 40mg Take 1 [facility] nivers 40 mg 4-29 tablet by ity of tablet 00:00: mouth [place] 00 daily. Medical Branch pregabalin 2021-0 Yes [id number] 150mg Take 1 [facility] 150 mg 4-29 capsule by ity of capsule 00:00: mouth 3 (three) Medical times Branch daily. busPIRone 2021-0 Yes [id number] 20mg Take 2 [facility] 10 mg 4-29 tablets by ity of tablet 00:00: mouth 2 (two) Medical times Branch daily. citalopram 2021-0 Yes [id number] 40mg Take 1 [facility] nivers 40 mg 4-29 tablet by ity of tablet 00:00: mouth daily. Medical Branch pregabalin 2021-0 Yes [id number] 150mg Take 1 [facility] 150 mg 4-29 capsule by ity of capsule 00:00: mouth 3 (three) Medical times Branch daily. busPIRone 2021-0 Yes [id number] 20mg Take 2 [facility] 10 mg 4-29 tablets by ity of tablet 00:00: mouth (two) Medical times Branch daily. citalopram 2021-0 Yes [id number] 40mg Take 1 [facility] nivers 40 mg 4-29 tablet by ity of tablet 00:00: mouth daily. Medical Branch pregabalin 2021-0 Yes [id number] 150mg Take 1 [facility] 150 mg 4-29 capsule by ity of capsule 00:00: mouth 3 (three) Medical times Branch daily. busPIRone 2021-0 Yes [id number] 20mg Take 2 [facility] 10 mg 4-29 tablets by ity of tablet 00:00: mouth (two) Medical times Branch daily. citalopram 2021-0 Yes [id number] 40mg Take 1 [facility] nivers 40 mg 4-29 tablet by ity of tablet 00:00: mouth daily. Medical Branch pregabalin 2021-0 Yes [id number] 150mg Take 1 [facility] 150 mg 4-29 capsule by ity of capsule 00:00: mouth 3 (three) Medical times Branch daily. busPIRone 2-0 Yes [id number] 20mg Take 2 [facility] 10 mg 4-29 tablets by ity of tablet 00:00: mouth 2 (two) Medical times Branch daily. citalopram 2-0 Yes [id number] 40mg Take 1 [facility] nivers 40 mg 4-29 tablet by ity of tablet 00:00: mouth daily. Medical Branch pregabalin 2021-0 Yes [id number] 150mg Take 1 [facility] 150 mg 4-29 capsule by ity of capsule 00:00: mouth 3 (three) Medical times Branch daily. busPIRone 2021-0 Yes [id number] 20mg Take 2 [facility] 10 mg 4-29 tablets by ity of tablet 00:00: mouth (two) Medical times Branch daily. citalopram 2021-0 Yes [id number] 40mg Take 1 [facility] nivers 40 mg 4-29 tablet by ity of tablet 00:00: mouth 00 daily. Medical Branch pregabalin 2021-0 Yes [id number] 150mg Take 1 [facility] 150 mg 4-29 capsule by ity of capsule 00:00: mouth (three) Medical times Branch daily. busPIRone 2021-0 Yes [id number] 20mg Take 2 [facility] 10 mg 4-29 tablets by ity of tablet 00:00: mouth (two) Medical times Branch daily. citalopram 2021-0 Yes [id number] 40mg Take 1 [facility] nivers 40 mg 4-29 tablet by ity of tablet 00:00: mouth daily. Medical Branch pregabalin 2021-0 Yes [id number] 150mg Take 1 [facility] 150 mg 4-29 capsule by ity of capsule 00:00: mouth (three) Medical times Branch daily. busPIRone 2021-0 Yes [id number] 20mg Take 2 [facility] 10 mg 4-29 tablets by ity of tablet 00:00: mouth (two) Medical times Branch daily. citalopram 2021-0 Yes [id number] 40mg Take 1 [facility] nivers 40 mg 4-29 tablet by ity of tablet 00:00: mouth 00 daily. Medical Branch pregabalin 2021-0 Yes [id number] 150mg Take 1 [facility] 150 mg 4-29 capsule by ity of capsule 00:00: mouth (three) Medical times Branch daily. busPIRone 2021-0 Yes [id number] 20mg Take 2 [facility] 10 mg 4-29 tablets by ity of tablet 00:00: mouth (two) Medical times Branch daily. citalopram 2021-0 Yes [id number] 40mg Take 1 [facility] nivers 40 mg 4-29 tablet by ity of tablet 00:00: mouth 00 daily. Medical Branch pregabalin 2021-0 Yes [id number] 150mg Take 1 [facility] 150 mg 4-29 capsule by ity of capsule 00:00: mouth 3 (three) Medical times Branch daily. busPIRone 2021-0 Yes [id number] 20mg Take 2 [facility] 10 mg 4-29 tablets by ity of tablet 00:00: mouth (two) Medical times Branch daily. citalopram 2021-0 Yes [id number] 40mg Take 1 [facility] nivers 40 mg 4-29 tablet by ity of tablet 00:00: mouth 00 daily. Medical Branch pregabalin 2021-0 Yes [id number] 150mg Take 1 [facility] 150 mg 4-29 capsule by ity of capsule 00:00: mouth (three) Medical times Branch daily. busPIRone 2021-0 Yes [id number] 20mg Take 2 [facility] 10 mg 4-29 tablets by ity of tablet 00:00: mouth (two) Medical times Branch daily. citalopram 2021-0 Yes [id number] 40mg Take 1 [facility] nivers 40 mg 4-29 tablet by ity of tablet 00:00: mouth daily. Medical Branch pregabalin 2021-0 Yes [id number] 150mg Take 1 [facility] 150 mg 4-29 capsule by ity of capsule 00:00: mouth (three) Medical times Branch daily. busPIRone 2021-0 Yes [id number] 20mg Take 2 [facility] 10 mg 4-29 tablets by ity of tablet 00:00: mouth (two) Medical times Branch daily. citalopram 2021-0 Yes [id number] 40mg Take 1 [facility] nivers 40 mg 4-29 tablet by ity of tablet 00:00: mouth 00 daily. Medical Branch pregabalin 2021-0 Yes [id number] 150mg Take 1 [facility] 150 mg 4-29 capsule by ity of capsule 00:00: mouth 3 (three) Medical times Branch daily. busPIRone 2021-0 Yes [id number] 20mg Take 2 [facility] 10 mg 4-29 tablets by ity of tablet 00:00: mouth (two) Medical times Branch daily. citalopram 2021-0 Yes [id number] 40mg Take 1 [facility] nivers 40 mg 4-29 tablet by ity of tablet 00:00: mouth 00 daily. Medical Branch pregabalin 2021-0 Yes [id number] 150mg Take 1 [facility] 150 mg 4-29 capsule by ity of capsule 00:00: mouth 3 (three) Medical times Branch daily. busPIRone 2021-0 Yes [id number] 20mg Take 2 [facility] 10 mg 4-29 tablets by ity of tablet 00:00: mouth (two) Medical times Branch daily. citalopram 2021-0 Yes [id number] 40mg Take 1 [facility] nivers 40 mg 4-29 tablet by ity of tablet 00:00: mouth daily. Medical Branch pregabalin 2021-0 Yes [id number] 150mg Take 1 [facility] 150 mg 4-29 capsule by ity of capsule 00:00: mouth (three) Medical times Branch daily. busPIRone 2021-0 Yes [id number] 20mg Take 2 [facility] 10 mg 4-29 tablets by ity of tablet 00:00: mouth (two) Medical times Branch daily. citalopram 2021-0 Yes [id number] 40mg Take 1 [facility] nivers 40 mg 4-29 tablet by ity of tablet 00:00: mouth daily. Medical Branch pregabalin 2021-0 Yes [id number] 150mg Take 1 [facility] 150 mg 4-29 capsule by ity of capsule 00:00: mouth (three) Medical times Branch daily. busPIRone 2-0 Yes [id number] 20mg Take 2 [facility] 10 mg 4-29 tablets by ity of tablet 00:00: mouth (two) Medical times Branch daily. citalopram 2-0 Yes [id number] 40mg Take 1 [facility] nivers 40 mg 4-29 tablet by ity of tablet 00:00: mouth 00 daily. Medical Branch pregabalin 2021-0 Yes [id number] 150mg Take 1 [facility] 150 mg 4-29 capsule by ity of capsule 00:00: mouth (three) Medical times Branch daily. busPIRone 2021-0 Yes [id number] 20mg Take 2 [facility] 10 mg 4-29 tablets by ity of tablet 00:00: mouth (two) Medical times Branch daily. citalopram 2021-0 Yes [id number] 40mg Take 1 [facility] nivers 40 mg 4-29 tablet by ity of tablet 00:00: mouth daily. Medical Branch pregabalin 2021-0 Yes [id number] 150mg Take 1 [facility] 150 mg 4-29 capsule by ity of capsule 00:00: mouth 3 (three) Medical times Branch daily. busPIRone 2021-0 Yes [id number] 20mg Take 2 [facility] 10 mg 4-29 tablets by ity of tablet 00:00: mouth (two) Medical times Branch daily. citalopram 2021-0 Yes [id number] 40mg Take 1 [facility] nivers 40 mg 4-29 tablet by ity of tablet 00:00: mouth daily. Medical Branch pregabalin 2021-0 Yes [id number] 150mg Take 1 [facility] 150 mg 4-29 capsule by ity of capsule 00:00: mouth 3 (three) Medical times Branch daily. busPIRone 2021-0 Yes [id number] 20mg Take 2 [facility] 10 mg 4-29 tablets by ity of tablet 00:00: mouth (two) Medical times Branch daily. citalopram 2021-0 Yes [id number] 40mg Take 1 [facility] nivers 40 mg 4-29 tablet by ity of tablet 00:00: mouth daily. Medical Branch pregabalin 2021-0 Yes [id number] 150mg Take 1 [facility] 150 mg 4-29 capsule by ity of capsule 00:00: mouth 3 (three) Medical times Branch daily. busPIRone 2021-0 Yes [id number] 20mg Take 2 [facility] 10 mg 4-29 tablets by ity of tablet 00:00: mouth (two) Medical times Branch daily. citalopram 2021-0 Yes [id number] 40mg Take 1 [facility] nivers 40 mg 4-29 tablet by ity of tablet 00:00: mouth 00 daily. Medical Branch pregabalin 2021-0 Yes [id number] 150mg Take 1 [facility] 150 mg 4-29 capsule by ity of capsule 00:00: mouth 3 (three) Medical times Branch daily. busPIRone 2-0 Yes [id number] 20mg Take 2 [facility] 10 mg 4-29 tablets by ity of tablet 00:00: mouth (two) Medical times Branch daily. citalopram 2021-0 Yes [id number] 40mg Take 1 [facility] nivers 40 mg 4-29 tablet by ity of tablet 00:00: mouth 00 daily. Medical Branch pregabalin 2021-0 Yes [id number] 150mg Take 1 [facility] 150 mg 4-29 capsule by ity of capsule 00:00: mouth (three) Medical times Branch daily. busPIRone 2021-0 Yes [id number] 20mg Take 2 [facility] 10 mg 4-29 tablets by ity of tablet 00:00: mouth (two) Medical times Branch daily. citalopram 2021-0 Yes [id number] 40mg Take 1 [facility] nivers 40 mg 4-29 tablet by ity of tablet 00:00: mouth daily. Medical Branch pregabalin 2021-0 Yes [id number] 150mg Take 1 [facility] 150 mg 4-29 capsule by ity of capsule 00:00: mouth (three) Medical times Branch daily. busPIRone 2021-0 Yes [id number] 20mg Take 2 [facility] 10 mg 4-29 tablets by ity of tablet 00:00: mouth (two) Medical times Branch daily. citalopram 2021-0 Yes [id number] 40mg Take 1 [facility] nivers 40 mg 4-29 tablet by ity of tablet 00:00: mouth daily. Medical Branch pregabalin 2021-0 Yes [id number] 150mg Take 1 [facility] 150 mg 4-29 capsule by ity of capsule 00:00: mouth (three) Medical times Branch daily. busPIRone 2-0 Yes [id number] 20mg Take 2 [facility] 10 mg 4-29 tablets by ity of tablet 00:00: mouth (two) Medical times Branch daily. citalopram 2-0 Yes [id number] 40mg Take 1 [facility] nivers 40 mg 4-29 tablet by ity of tablet 00:00: mouth 00 daily. Medical Branch pregabalin 2021-0 Yes [id number] 150mg Take 1 [facility] 150 mg 4-29 capsule by ity of capsule 00:00: mouth 3 (three) Medical times Branch daily. busPIRone 2021-0 Yes [id number] 20mg Take 2 [facility] 10 mg 4-29 tablets by ity of tablet 00:00: mouth (two) Medical times Branch daily. citalopram 2021-0 Yes [id number] 40mg Take 1 [facility] nivers 40 mg 4-29 tablet by ity of tablet 00:00: mouth 00 daily. Medical Branch pregabalin 2021-0 Yes [id number] 150mg Take 1 [facility] 150 mg 4-29 capsule by ity of capsule 00:00: mouth (three) Medical times Branch daily. busPIRone 2021-0 Yes [id number] 20mg Take 2 Un [facility] 10 mg 4-29 tablets by ity of tablet 00:00: mouth (two) Medical times Branch daily. citalopram 2021-0 Yes [id number] 40mg Take 1 U nivers 40 mg 4-29 tablet by ity of tablet 00:00: mouth daily. Medical Branch pregabalin 2021-0 Yes [id number] 150mg Take 1 [facility] 150 mg 4-29 capsule by ity of capsule 00:00: mouth (three) Medical times Branch daily. busPIRone 2021-0 Yes [id number] 20mg Take 2 Un [facility] 10 mg 4-29 tablets by ity of tablet 00:00: mouth (two) Medical times Branch daily. citalopram 2021-0 Yes [id number] 40mg Take 1 U nivers 40 mg 4-29 tablet by ity of tablet 00:00: mouth daily. Medical Branch pregabalin 2021-0 Yes [id number] 150mg Take 1 [facility] 150 mg 4-29 capsule by ity of capsule 00:00: mouth 3 (three) Medical times Branch daily. busPIRone 2021-0 Yes [id number] 20mg Take 2 [facility] 10 mg 4-29 tablets by ity of tablet 00:00: mouth (two) Medical times Branch daily. citalopram 2021-0 Yes [id number] 40mg Take 1 [facility] nivers 40 mg 4-29 tablet by ity of tablet 00:00: mouth 00 daily. Medical Branch pregabalin 2021-0 Yes [id number] 150mg Take 1 [facility] 150 mg 4-29 capsule by ity of capsule 00:00: mouth (three) Medical times Branch daily. busPIRone 2021-0 Yes [id number] 20mg Take 2 [facility] 10 mg 4-29 tablets by ity of tablet 00:00: mouth (two) Medical times Branch daily. citalopram 2021-0 Yes [id number] 40mg Take 1 [facility] nivers 40 mg 4-29 tablet by ity of tablet 00:00: mouth daily. Medical Branch pregabalin 2021-0 Yes [id number] 150mg Take 1 [facility] 150 mg 4-29 capsule by ity of capsule 00:00: mouth (three) Medical times Branch daily. busPIRone 2021-0 Yes [id number] 20mg Take 2 [facility] 10 mg 4-29 tablets by ity of tablet 00:00: mouth (two) Medical times Branch daily. citalopram 2021-0 Yes [id number] 40mg Take 1 [facility] nivers 40 mg 4-29 tablet by ity of tablet 00:00: mouth daily. Medical Branch pregabalin 2021-0 Yes [id number] 150mg Take 1 [facility] 150 mg 4-29 capsule by ity of capsule 00:00: mouth (three) Medical times Branch daily. busPIRone 2-0 Yes [id number] 20mg Take 2 [facility] 10 mg 4-29 tablets by ity of tablet 00:00: mouth (two) Medical times Branch daily. citalopram 2-0 Yes [id number] 40mg Take 1 [facility] nivers 40 mg 4-29 tablet by ity of tablet 00:00: mouth 00 daily. Medical Branch pregabalin 2021-0 Yes [id number] 150mg Take 1 [facility] 150 mg 4-29 capsule by ity of capsule 00:00: mouth (three) Medical times Branch daily. busPIRone 2022-0 Yes [id number] 20mg Take 2 [facility] 10 mg 4-29 tablets by ity of tablet 00:00: mouth 2 (two) Medical times Branch daily. citalopram 2021-0 Yes [id number] 40mg Take 1 [facility] nivers 40 mg 4-29 tablet by ity of tablet 00:00: mouth 00 daily. Medical Branch pregabalin 2021-0 Yes [id number] 150mg Take 1 [facility] 150 mg 4-29 capsule by ity of capsule 00:00: mouth 3 (three) Medical times Branch daily. busPIRone 2021-0 Yes [id number] 20mg Take 2 [facility] 10 mg 4-29 tablets by ity of tablet 00:00: mouth (two) Medical times Branch daily. citalopram 2021-0 Yes [id number] 40mg Take 1 [facility] nivers 40 mg 4-29 tablet by ity of tablet 00:00: mouth 00 daily. Medical Branch pregabalin 2021-0 Yes [id number] 150mg Take 1 [facility] 150 mg 4-29 capsule by ity of capsule 00:00: mouth (three) Medical times Branch daily. busPIRone 2021-0 Yes [id number] 20mg Take 2 [facility] 10 mg 4-29 tablets by ity of tablet 00:00: mouth (two) Medical times Branch daily. citalopram 2021-0 Yes [id number] 40mg Take 1 [facility] nivers 40 mg 4-29 tablet by ity of tablet 00:00: mouth daily. Medical Branch pregabalin 2021-0 Yes [id number] 150mg Take 1 [facility] 150 mg 4-29 capsule by ity of capsule 00:00: mouth (three) Medical times Branch daily. busPIRone 2021-0 Yes [id number] 20mg Take 2 [facility] 10 mg 4-29 tablets by ity of tablet 00:00: mouth (two) Medical times Branch daily. citalopram 2021-0 Yes [id number] 40mg Take 1 [facility] nivers 40 mg 4-29 tablet by ity of tablet 00:00: mouth 00 daily. [facility] Branch citalopram 2021-0 Yes [id number] 40mg Take 1 [facility] nivers 40 mg 4-29 tablet by ity of tablet 00:00: mouth [place] 00 daily. Medical Branch citalopram 0 Yes [id number] 40mg Take 1 [facility] nivers 40 mg 4-29 tablet by ity of tablet 00:00: mouth [place] 00 daily. [facility] Branch citalopram 0 Yes [id number] 40mg Take 1 [facility] nivers 40 mg 4-29 tablet by ity of tablet 00:00: mouth [place] 00 daily. [facility] Branch citalopram 0 Yes [id number] 40mg Take 1 [facility] nivers 40 mg 4-29 tablet by ity of tablet 00:00: mouth [place] 00 daily. [facility] Branch citalopram 0 Yes [id number] 40mg Take 1 [facility] nivers 40 mg 4-29 tablet by ity of tablet 00:00: mouth [place] 00 daily. [facility] Branch citalopram 0 Yes [id number] 40mg Take 1 [facility] nivers 40 mg 4-29 tablet by ity of tablet 00:00: mouth [place] 00 daily. [facility] Branch citalopram 0 Yes [id number] 40mg Take 1 [facility] nivers 40 mg 4-29 tablet by ity of tablet 00:00: mouth [place] 00 daily. [facility] Branch citalopram 0 Yes [id number] 40mg Take 1 [facility] nivers 40 mg 4-29 tablet by ity of tablet 00:00: mouth [place] 00 daily. [facility] Branch citalopram 0 Yes [id number] 40mg Take 1 [facility] nivers 40 mg 4-29 tablet by ity of tablet 00:00: mouth [place] 00 daily. Medical Branch citalopram 0 Yes [id number] 40mg Take 1 [facility] nivers 40 mg 4-29 tablet by ity of tablet 00:00: mouth [place] 00 daily. [facility] Branch citalopram 0 Yes [id number] 40mg Take 1 [facility] nivers 40 mg 4-29 tablet by ity of tablet 00:00: mouth [place] 00 daily. [facility] Branch citalopram 0 Yes [id number] 40mg Take 1 [facility] nivers 40 mg 4-29 tablet by ity of tablet 00:00: mouth [place] 00 daily. [facility] Branch citalopram 0 Yes [id number] 40mg Take 1 [facility] nivers 40 mg 4-29 tablet by ity of tablet 00:00: mouth [place] 00 daily. [facility] Branch citalopram 0 Yes [id number] 40mg Take 1 [facility] nivers 40 mg 4-29 tablet by ity of tablet 00:00: mouth [place] 00 daily. [facility] Branch citalopram 2021-0 Yes [id number] 40mg Take 1 [facility] nivers 40 mg 4-29 tablet by ity of tablet 00:00: mouth [place] 00 daily. [facility] Branch citalopram 0 Yes [id number] 40mg Take 1 [facility] nivers 40 mg 4-29 tablet by ity of tablet 00:00: mouth [place] 00 daily. [facility] Branch citalopram 0 Yes [id number] 40mg Take 1 [facility] nivers 40 mg 4-29 tablet by ity of tablet 00:00: mouth [place] 00 daily. [facility] Branch citalopram 0 Yes [id number] 40mg Take 1 [facility] n[facility] 40 mg 4-29 tablet by ity of tablet 00:00: mouth [place] 00 daily. [facility] Branch citalopram 0 Yes [id number] 40mg Take 1 [facility] nivers 40 mg 4-29 tablet by it[facility] of tablet 00:00: mouth [place] 00 daily. [facility] citalopram 0 Yes [id number] 40mg Take 1 [facility] n[facility] 40 mg 4-29 tablet by it[facility] of tablet 00:00: mouth [place] 00 daily. [facility] citalopram 0 Yes [id number] 40mg Take 1 [facility] n[facility] 40 mg 4-29 tablet by [facility] of tablet 00:00: mouth [place] 00 daily. [facility] citalopram 0 Yes [id number] 40mg Take 1 [facility] n[facility] 40 mg 4-29 tablet by [facility] of tablet 00:00: mouth [place] 00 daily. [facility] citalopram 0 Yes [id number] 40mg Take 1 [facility] nivers 40 mg 4-29 tablet by it[facility] of tablet 00:00: mouth [place] 00 daily. [facility] Branch citalopram 0 Yes [id number] 40mg Take 1 [facility] nivers 40 mg 4-29 tablet by it[facility] of tablet 00:00: mouth [place] 00 daily. [facility] citalopram 2022-0 Yes [id number] 40mg Take 1 [facility] n[facility] 40 mg 4-29 tablet by [facility] of tablet 00:00: mouth [place] 00 daily. [facility] citalopram 0 Yes [id number] 40mg Take 1 [facility] nivers 40 mg 4-29 tablet by ity of tablet 00:00: mouth [place] 00 daily. [facility] citalopram 0 Yes [id number] 40mg Take 1 [facility] nivers 40 mg 4-29 tablet by it[facility] of tablet 00:00: mouth [place] 00 daily. [facility] citalopram 0 Yes [id number] 40mg Take 1 [facility] nivers 40 mg 4-29 tablet by ity of tablet 00:00: mouth [place] 00 daily. [facility] Branch citalopram 0 Yes [id number] 40mg Take 1 [facility] n[facility] 40 mg 4-29 tablet by ity of tablet 00:00: mouth [place] 00 daily. [facility] Branch citalopram 0 Yes [id number] 40mg Take 1 [facility] n[facility] 40 mg 4-29 tablet by ity of tablet 00:00: mouth [place] 00 daily. [facility] Branch citalopram Yes [id number] 40mg Take 1 [facility] nivers 40 mg 4-29 tablet by ity of tablet 00:00: mouth [place] 00 daily. [facility] Branch citalopram Yes [id number] 40mg Take 1 [facility] nivers 40 mg 4-29 tablet by ity of tablet 00:00: mouth [place] 00 daily. [facility] citalopram 0 Yes [id number] 40mg Take 1 [facility] n[facility] 40 mg 4-29 tablet by ity of tablet 00:00: mouth [place] 00 daily. [facility] Branch citalopram 0 Yes [id number] 40mg Take 1 [facility] n[facility] 40 mg 4-29 tablet by ity of tablet 00:00: mouth [place] 00 daily. [facility] citalopram 0 Yes [id number] 40mg Take 1 [facility] n[facility] 40 mg 4-29 tablet by ity of tablet 00:00: mouth [place] 00 daily. [facility] citalopram 0 Yes [id number] 40mg Take 1 [facility] n[facility] 40 mg 4-29 tablet by [facility] of tablet 00:00: mouth [place] 00 daily. [facility] citalopram 0 Yes [id number] 40mg Take 1 [facility] n[facility] 40 mg 4-29 tablet by ity of tablet 00:00: mouth [place] 00 daily. [facility] citalopram 0 Yes [id number] 40mg Take 1 [facility] n[facility] 40 mg 4-29 tablet by it[facility] of tablet 00:00: mouth [place] 00 daily. [facility] citalopram 0 Yes [id number] 40mg Take 1 [facility] n[facility] 40 mg 4-29 tablet by it[facility] of tablet 00:00: mouth [place] 00 daily. [facility] citalopram 0 Yes [id number] 40mg Take 1 [facility] n[facility] 40 mg 4-29 tablet by it[facility] of tablet 00:00: mouth [place] 00 daily. [facility] citalopram Yes [id number] 40mg Take 1 [facility] n[facility] 40 mg 4-29 tablet by [facility] of tablet 00:00: mouth [place] 00 daily. [facility] citalopram 0 Yes [id number] 40mg Take 1 [facility] n[facility] 40 mg 4-29 tablet by [facility] of tablet 00:00: mouth [place] 00 daily. [facility] citalopram 0 Yes [id number] 40mg Take 1 [facility] n[facility] 40 mg 4-29 tablet by [facility] of tablet 00:00: mouth [place] 00 daily. [facility] citalopram Yes [id number] 40mg Take 1 [facility] 40 mg 4-29 tablet by [facility] of tablet 00:00: mouth [place] 00 daily. [facility] citalopram 0 Yes [id number] 40mg Take 1 [facility] 40 mg 4-29 tablet by [facility] of tablet 00:00: mouth [place] 00 daily. [facility] citalopram 0 Yes [id number] 40mg Take 1 [facility] 40 mg 4-29 tablet by [facility] of tablet 00:00: mouth [place] 00 daily. [facility] citalopram 0 Yes [id number] 40mg Take 1 [facility] 40 mg 4-29 tablet by [facility] of tablet 00:00: mouth [place] 00 daily. [facility] citalopram 0 Yes [id number] 40mg Take 1 [facility] 40 mg 4-29 tablet by [facility] of tablet 00:00: mouth [place] 00 daily. [facility] citalopram Yes [id number] 40mg Take 1 [facility] 40 mg 4-29 tablet by [facility] of tablet 00:00: mouth [place] 00 daily. [facility] citalopram 0 Yes [id number] 40mg Take 1 [facility] 40 mg 4-29 tablet by [facility] of tablet 00:00: mouth [place] 00 daily. [facility] citalopram 0 Yes [id number] 40mg Take 1 [facility] 40 mg 4-29 tablet by [facility] of tablet 00:00: mouth [place] 00 daily. [facility] citalopram 0 Yes [id number] 40mg Take 1 [facility] 40 mg 4-29 tablet by [facility] of tablet 00:00: mouth [place] 00 daily. [facility] citalopram Yes [id number] 40mg Take 1 [facility] 40 mg 4-29 tablet by [facility] of tablet 00:00: mouth [place] 00 daily. [facility] citalopram 0 Yes [id number] 40mg Take 1 [facility] 40 mg 4-29 tablet by [facility] of tablet 00:00: mouth [place] 00 daily. [facility] citalopram Yes [id number] 40mg Take 1 [facility] 40 mg 4-29 tablet by [facility] of tablet 00:00: mouth [place] 00 daily. [facility] citalopram Yes [id number] 40mg Take 1 [facility] 40 mg 4-29 tablet by [facility] of tablet 00:00: mouth [place] 00 daily. [facility] citalopram 0 Yes [id number] 40mg Take 1 [facility] 40 mg 4-29 tablet by [facility] of tablet 00:00: mouth [place] 00 daily. [facility] citalopram 0 Yes [id number] 40mg Take 1 [facility] 40 mg 4-29 tablet by [facility] of tablet 00:00: mouth [place] 00 daily. [facility] citalopram 0 Yes [id number] 40mg Take 1 [facility] 40 mg 4-29 tablet by [facility] of tablet 00:00: mouth [place] 00 daily. [facility] citalopram 0 Yes [id number] 40mg Take 1 [facility] 40 mg 4-29 tablet by [facility] of tablet 00:00: mouth [place] 00 daily. [facility] pregabalin 2021-0 Yes [id number] 150mg Take 1 [facility] 150 mg 4-29 capsule by [facility] capsule 00:00: mouth (three) Medical times Branch daily. busPIRone 2021-0 Yes [id number] 20mg Take 2 [facility] 10 mg 4-29 tablets by [facility] tablet 00:00: mouth (two) Medical times Branch daily. citalopram 2021-0 Yes [id number] 40mg Take 1 [facility] 40 mg 4-29 tablet by [facility] tablet 00:00: mouth daily. [facility] pregabalin 2021-0 Yes [id number] 150mg Take 1 [facility] 150 mg 4-29 capsule by [facility] capsule 00:00: mouth (three) Medical times Branch daily. busPIRone 2021-0 Yes [id number] 20mg Take 2 [facility] 10 mg 4-29 tablets by [facility] of tablet 00:00: mouth (two) Medical times Branch daily. citalopram 2021-0 Yes [id number] 40mg Take 1 [facility] 40 mg 4-29 tablet by [facility] of tablet 00:00: mouth daily. [facility] pregabalin 2021-0 Yes [id number] 150mg Take 1 [facility] 150 mg 4-29 capsule by [facility] of capsule 00:00: mouth (three) Medical times Branch daily. busPIRone 2021-0 Yes [id number] 20mg Take 2 [facility] 10 mg 4-29 tablets by [facility] of tablet 00:00: mouth (two) Medical times Branch daily. citalopram 2021-0 Yes [id number] 40mg Take 1 [facility] n[facility] 40 mg 4-29 tablet by [facility] tablet 00:00: mouth daily. [facility] pregabalin 2021-0 Yes [id number] 150mg Take 1 [facility] 150 mg 4-29 capsule by [facility] of capsule 00:00: mouth (three) Medical times Branch daily. busPIRone 2021-0 Yes [id number] 20mg Take 2 [facility] [place] 10 mg 4-29 tablets by [facility]y of tablet 00:00: mouth (two) Medical times Branch daily. citalopram 2022-0 Yes [id number] 40mg Take 1 [facility] 40 mg 4-29 tablet by [facility]y of tablet 00:00: mouth 00 daily. [facility] pregabalin 2021-0 Yes [id number] 150mg Take 1 [facility] 150 mg 4-29 capsule by [facility] of capsule 00:00: mouth 3 (three) Medical times Branch daily. busPIRone 2021-0 Yes [id number] 20mg Take 2 [facility] [place] 10 mg 4-29 tablets by [facility]y of tablet 00:00: mouth 2 (two) Medical times Branch daily. citalopram 2021-0 Yes [id number] 40mg Take 1 [facility] 40 mg 4-29 tablet by [facility]y of tablet 00:00: mouth 00 daily. [facility] pregabalin 0 Yes [id number] 150mg Take 1 [facility] 150 mg 4-29 capsule by [facility]y of capsule 00:00: mouth 3 (three) Medical times Branch daily. busPIRone 2021-0 Yes [id number] 20mg Take 2 [facility] [place] 10 mg 4-29 tablets by [facility] of tablet 00:00: mouth (two) Medical times Branch daily. citalopram 2021-0 Yes [id number] 40mg Take 1 [facility] 40 mg 4-29 tablet by [facility]y of tablet 00:00: mouth 00 daily. [facility] pregabalin 0 Yes [id number] 150mg Take 1 [facility] 150 mg 4-29 capsule by [facility] of capsule 00:00: mouth (three) Medical times Branch daily. busPIRone 2021-0 Yes [id number] 20mg Take 2 [facility] [place] 10 mg 4-29 tablets by [facility]y of tablet 00:00: mouth (two) Medical times [facility] daily. citalopram 2021-0 Yes [id number] 40mg Take 1 [facility] 40 mg 4-29 tablet by [facility] of tablet 00:00: mouth 00 daily. [facility] pregabalin 2021-0 Yes [id number] 150mg Take 1 [facility] 150 mg 4-29 capsule by [facility] of capsule 00:00: mouth 3 (three) Medical times Branch daily. busPIRone 2021-0 Yes [id number] 20mg Take 2 [facility] [place] 10 mg 4-29 tablets by [facility] of tablet 00:00: mouth (two) Medical times [facility] daily. citalopram 2021-0 Yes [id number] 40mg Take 1 [facility] 40 mg 4-29 tablet by [facility] of tablet 00:00: mouth 00 daily. [facility] pregabalin 2021-0 Yes [id number] 150mg Take 1 [facility] 150 mg 4-29 capsule by [facility] of capsule 00:00: mouth 3 (three) Medical times Branch daily. busPIRone 0 Yes [id number] 20mg Take 2 [facility] [place] 10 mg 4-29 tablets by [facility] of tablet 00:00: mouth (two) Medical times Branch daily. citalopram 0 Yes [id number] 40mg Take 1 [facility] 40 mg 4-29 tablet by [facility] of tablet 00:00: mouth 00 daily. [facility] pregabalin 0 Yes [id number] 150mg Take 1 [facility] 150 mg 4-29 capsule by [facility] of capsule 00:00: mouth (three) Medical times Branch daily. busPIRone 0 Yes [id number] 20mg Take 2 [facility] [place] 10 mg 4-29 tablets by [facility] of tablet 00:00: mouth (two) Medical times [facility] daily. citalopram 0 Yes [id number] 40mg Take 1 [facility] 40 mg 4-29 tablet by [facility]y of tablet 00:00: mouth 00 daily. [facility] pregabalin 0 Yes [id number] 150mg Take 1 [facility] 150 mg 4-29 capsule by [facility] of capsule 00:00: mouth (three) Medical times Branch daily. busPIRone 2021-0 Yes [id number] 20mg Take 2 [facility] [place] 10 mg 4-29 tablets by [facility]y of tablet 00:00: mouth (two) Medical times [facility] daily. citalopram 0 Yes [id number] 40mg Take 1 [facility] 40 mg 4-29 tablet by [facility]y of tablet 00:00: mouth 00 daily. [facility] pregabalin 0 2021- No [id number] 150mg Take 1 [facility] 150 mg 4-29 10-13 capsule by [facility]y of capsule 00:00: 00:00 mouth 3 [place] 00 :00 (three) Medical times Branch daily. busPIRone 2021- No [id number] 20mg Take 2 [facility] 10 mg 4-29 10-13 tablets by ity of tablet 00:00: 00:00 mouth 2 [place] 00 :00 (two) Medical times Branch daily. pantoprazol 0 Yes [id number] 40mg Take 1 [facility] e 40 mg EC 4-04 tablet by ity of tablet 00:00: mouth [place] 00 daily. [facility] pantoprazol 0 Yes [id number] 40mg Take 1 [facility] e 40 mg EC 4-04 tablet by ity of tablet 00:00: mouth [place] 00 daily. [facility] pantoprazol Yes [id number] 40mg Take 1 [facility] e 40 mg EC 4-04 tablet by ity of tablet 00:00: mouth [place] 00 daily. [facility] pantoprazol 0 Yes [id number] 40mg Take 1 [facility] e 40 mg EC 4-04 tablet by ity of tablet 00:00: mouth [place] 00 daily. [facility] pantoprazol 0 Yes [id number] 40mg Take 1 [facility] e 40 mg EC 4-04 tablet by ity of tablet 00:00: mouth [place] 00 daily. [facility] pantoprazol 0 Yes [id number] 40mg Take 1 [facility] e 40 mg EC 4-04 tablet by ity of tablet 00:00: mouth [place] 00 daily. Medical [facility] pantoprazol 0 Yes [id number] 40mg Take 1 [facility] e 40 mg EC 4-04 tablet by ity of tablet 00:00: mouth [place] 00 daily. [facility] pantoprazol 2021-0 Yes [id number] 40mg Take 1 [facility] e 40 mg EC 4-04 tablet by ity of tablet 00:00: mouth [place] 00 daily. Medical [facility] pantoprazol Yes [id number] 40mg Take 1 [facility] e 40 mg EC 4-04 tablet by ity of tablet 00:00: mouth [place] 00 daily. [facility] pantoprazol 0 Yes [id number] 40mg Take 1 [facility] e 40 mg EC 4-04 tablet by ity of tablet 00:00: mouth [place] 00 daily. Medical [facility] pantoprazol 2022-0 Yes [id number] 40mg Take 1 [facility] e 40 mg EC 4-04 tablet by ity of tablet 00:00: mouth [place] 00 daily. [facility] pantoprazol 2021-0 Yes [id number] 40mg Take 1 [facility] e 40 mg EC 4-04 tablet by ity of tablet 00:00: mouth [place] 00 daily. [facility] pantoprazol 2021-0 Yes [id number] 40mg Take 1 [facility] e 40 mg EC 4-04 tablet by ity of tablet 00:00: mouth [place] 00 daily. [facility] pantoprazol 2021-0 Yes [id number] 40mg Take 1 [facility] e 40 mg EC 4-04 tablet by ity of tablet 00:00: mouth [place] 00 daily. [facility] pantoprazol 0 Yes [id number] 40mg Take 1 [facility] e 40 mg EC 4-04 tablet by ity of tablet 00:00: mouth [place] 00 daily. [facility] pantoprazol 2021- Yes [id number] 40mg Take 1 [facility] e 40 mg EC 4-04 tablet by ity of tablet 00:00: mouth [place] 00 daily. [facility] pantoprazol 2021- Yes [id number] 40mg Take 1 [facility] e 40 mg EC 4-04 tablet by ity of tablet 00:00: mouth [place] 00 daily. [facility] pantoprazol 2021-0 Yes [id number] 40mg Take 1 [facility] e 40 mg EC 4-04 tablet by ity of tablet 00:00: mouth [place] 00 daily. [facility] pantoprazol 2021-0 Yes [id number] 40mg Take 1 [facility] e 40 mg EC 4-04 tablet by ity of tablet 00:00: mouth [place] 00 daily. [facility] pantoprazol 2021-0 Yes [id number] 40mg Take 1 [facility] e 40 mg EC 4-04 tablet by ity of tablet 00:00: mouth [place] 00 daily. [facility] pantoprazol 2021-0 Yes [id number] 40mg Take 1 [facility] e 40 mg EC 4-04 tablet by ity of tablet 00:00: mouth [place] 00 daily. [facility] pantoprazol 2021-0 Yes [id number] 40mg Take 1 [facility] e 40 mg EC 4-04 tablet by ity of tablet 00:00: mouth [place] 00 daily. [facility] pantoprazol 2021-0 Yes [id number] 40mg Take 1 [facility] e 40 mg EC 4-04 tablet by ity of tablet 00:00: mouth [place] 00 daily. Medical [facility] pantoprazol 2021-0 Yes [id number] 40mg Take 1 [facility] e 40 mg EC 4-04 tablet by ity of tablet 00:00: mouth [place] 00 daily. [facility] pantoprazol 2021-0 Yes [id number] 40mg Take 1 [facility] e 40 mg EC 4-04 tablet by ity of tablet 00:00: mouth [place] 00 daily. [facility] pantoprazol 2021-0 Yes [id number] 40mg Take 1 [facility] e 40 mg EC 4-04 tablet by ity of tablet 00:00: mouth [place] 00 daily. [facility] pantoprazol 2021-0 Yes [id number] 40mg Take 1 [facility] e 40 mg EC 4-04 tablet by ity of tablet 00:00: mouth [place] 00 daily. Medical [facility] pantoprazol 2021-0 Yes [id number] 40mg Take 1 [facility] e 40 mg EC 4-04 tablet by ity of tablet 00:00: mouth [place] 00 daily. Medical [facility] pantoprazol 2021-0 Yes [id number] 40mg Take 1 [facility] e 40 mg EC 4-04 tablet by ity of tablet 00:00: mouth [place] 00 daily. Medical [facility] pantoprazol 2021-0 Yes [id number] 40mg Take 1 [facility] e 40 mg EC 4-04 tablet by ity of tablet 00:00: mouth [place] 00 daily. Medical [facility] pantoprazol 2021-0 2021- No [id number] 40mg Take 1 [facility] e 40 mg EC 4-04 09-16 tablet by ity of tablet 00:00: 00:00 mouth [place] 00 :00 daily. Medical [facility] pantoprazol 2021-0 2021- No [id number] 40mg Take 1 [facility] e 40 mg EC 4-04 09-16 tablet by ity of tablet 00:00: 00:00 mouth [place] 00 :00 daily. Medical Branch Blood-Gluco 2021-0 Yes [id number] Use twice [facility] se Meter 3-08 a day for ity of (ONETOUCH 00:00: [place] VERIO FLEX 00 E11.65 Medical START) [facility] Blood-Gluco 2021-0 Yes [id number] Use twice [facility] se Meter 3-08 a day for ity of (ONETOUCH 00:00: [place] VERIO FLEX Medical START) [facility] Blood-Gluco 2022-0 Yes [id number] Use twice [facility] se Meter 3-08 a day for ity of (ONETOUCH 00:00: [place] VERIO FLEX Medical START) Kit Branch Blood-Gluco 2022-0 Yes [id number] Use twice [facility] se Meter 3-08 a day for ity of (ONETOUCH 00:00: [place] VERIO FLEX Medical START) Kit [facility] Blood-Gluco 2022-0 Yes [id number] Use twice [facility] se Meter 3-08 a day for ity of (ONETOUCH 00:00: [place] VERIO FLEX Medical START) Kit [facility] Blood-Gluco 2022-0 Yes [id number] Use twice [facility] se M[place] 3-08 a day for ity of (ONETOUCH 00:00: [place] VERIO FLEX Medical START) Kit [facility] Blood-Gluco 2022-0 Yes [id number] Use twice [facility] se Meter 3-08 a day for ity of (ONETOUCH 00:00: [place] VERIO FLEX Medical START) Kit [facility] Blood-Gluco 2022-0 Yes [id number] Use twice [facility] se Meter 3-08 a day for ity of (ONETOUCH 00:00: ICD [place] VERIO FLEX Medical START) Kit [facility] Blood-Gluco 2022-0 Yes [id number] Use twice [facility] se M[place] 3-08 a day for ity of (ONETOUCH 00:00: [place] VERIO FLEX Medical START) Kit [facility] Blood-Gluco 2022-0 Yes [id number] Use twice [facility] se Meter 3-08 a day for ity of (ONETOUCH 00:00: ICD [place] VERIO FLEX Medical START) Kit Branch Blood-Gluco 2022-0 Yes [id number] Use twice [facility] se Meter 3-08 a day for ity of (ONETOUCH 00:00: ICD [place] VERIO FLEX Medical START) Kit Branch Blood-Gluco 2022-0 Yes [id number] Use twice [facility] se Meter 3-08 a day for ity of (ONETOUCH 00:00: ICD [place] VERIO FLEX Medical START) Kit Branch Blood-Gluco 2022-0 Yes [id number] Use twice [facility] se M[place] 3-08 a day for ity of (ONETOUCH 00:00: ICD [place] VERIO FLEX Medical START) Kit Branch Blood-Gluco 2022-0 Yes [id number] Use twice [facility] se M[place] 3-08 a day for ity of (ONETOUCH 00:00: ICD [place] VERIO FLEX Medical START) Kit Branch Blood-Gluco 2022-0 Yes [id number] Use twice [facility] se Meter 3-08 a day for ity of (ONETOUCH 00:00: ICD [place] VERIO FLEX Medical START) Kit Branch Blood-Gluco 2022-0 Yes [id number] Use twice [facility] se Meter 3-08 a day for ity of (ONETOUCH 00:00: ICD CODE [place] VERIO FLEX Medical START) Kit Branch Blood-Gluco 2022-0 Yes [id number] Use twice [facility] se Meter 3-08 a day for ity of (ONETOUCH 00:00: ICD CODE [place] VERIO FLEX Medical START) Kit Branch Blood-Gluco 2022-0 Yes [id number] Use twice [facility] se Meter 3-08 a day for ity of (ONETOUCH 00:00: ICD CODE [place] VERIO FLEX Medical START) Kit Branch Blood-Gluco 2022-0 Yes [id number] Use twice [facility] se Meter 3-08 a day for ity of (ONETOUCH 00:00: ICD CODE [place] VERIO FLEX Medical START) Kit Branch Blood-Gluco 2022-0 Yes [id number] Use twice [facility] se Meter 3-08 a day for ity of (ONETOUCH 00:00: ICD CODE [place] VERIO FLEX Medical START) Kit Branch Blood-Gluco 2022-0 Yes [id number] Use twice [facility] se Meter 3-08 a day for ity of (ONETOUCH 00:00: ICD CODE [place] VERIO FLEX Medical START) Kit Branch Blood-Gluco 2022-0 Yes [id number] Use twice [facility] se Meter 3-08 a day for ity of (ONETOUCH 00:00: ICD CODE [place] VERIO FLEX Medical START) Kit Branch Blood-Gluco 2022-0 Yes [id number] Use twice [facility] se Meter 3-08 a day for ity of (ONETOUCH 00:00: ICD CODE [place] VERIO FLEX Medical START) Kit Branch Blood-Gluco 2022-0 Yes [id number] Use twice [facility] se Meter 3-08 a day for ity of (ONETOUCH 00:00: ICD [place] VERIO FLEX Medical START) Kit Branch Blood-Gluco 2022-0 Yes [id number] Use twice [facility] se Meter 3-08 a day for ity of (ONETOUCH 00:00: ICD CODE [place] VERIO FLEX Medical START) Kit Branch Blood-Gluco 2022-0 Yes [id number] Use twice [facility] se Meter 3-08 a day for ity of (ONETOUCH 00:00: ICD CODE [place] VERIO FLEX Medical START) Kit Branch Blood-Gluco 2022-0 Yes [id number] Use twice [facility] se Meter 3-08 a day for ity of (ONETOUCH 00:00: ICD CODE [place] VERIO FLEX Medical START) Kit Branch Blood-Gluco 2022-0 Yes [id number] Use twice [facility] se Meter 3-08 a day for ity of (ONETOUCH 00:00: ICD CODE [place] VERIO FLEX Medical START) Kit Branch Blood-Gluco 2022-0 Yes [id number] Use twice [facility] se Meter 3-08 a day for ity of (ONETOUCH 00:00: ICD CODE [place] VERIO FLEX Medical START) Kit Branch Blood-Gluco 2022-0 Yes [id number] Use twice [facility] se Meter 3-08 a day for ity of (ONETOUCH 00:00: ICD CODE [place] VERIO FLEX Medical START) Kit Branch Blood-Gluco 2022-0 Yes [id number] Use twice [facility] se Meter 3-08 a day for ity of (ONETOUCH 00:00: ICD CODE [place] VERIO FLEX Medical START) Kit Branch Blood-Gluco 2021-0 Yes [id number] Use twice [facility] se Meter 3-08 a day for ity of (ONETOUCH 00:00: ICD CODE [place] VERIO FLEX Medical START) Kit Branch Blood-Gluco 2-0 Yes [id number] Use twice [facility] se Meter 3-08 a day for ity of (ONETOUCH 00:00: ICD CODE [place] VERIO FLEX Medical START) Kit Branch Blood-Gluco 2021-0 Yes [id number] Use twice [facility] se Meter 3-08 a day for ity of (ONETOUCH 00:00: ICD CODE [place] VERIO FLEX Medical START) Kit Branch Blood-Gluco 2021-0 Yes [id number] Use twice [facility] se Meter 3-08 a day for ity of (ONETOUCH 00:00: ICD CODE [place] VERIO FLEX Medical START) Kit Branch Blood-Gluco 2021-0 Yes [id number] Use twice [facility] se Meter 3-08 a day for ity of (ONETOUCH 00:00: ICD [place] VERIO FLEX Medical START) Kit Branch Blood-Gluco 2021-0 2021- No [id number] Use twice [facility] se Meter 3-08 -22 a day for ity o f (ONETOUCH 00:00: 00:00 ICD CODE [place] VERIO FLEX 00 :00 Medical START) Kit Branch Blood-Gluco 2021-0 2021- No [id number] Use twice [facility] se Meter 3-08 -22 a day for ity o f (ONETOUCH 00:00: 00:00 ICD CODE [place] VERIO FLEX 00 :00 Medical START) Kit Branch Blood-Gluco 2-0 2021- No [id number] Use twice [facility] se Meter 3-08 -22 a day for ity o f (ONETOUCH 00:00: 00:00 ICD CODE [place] VERIO FLEX 00 :00 Medical START) Kit Branch mirabegron 2-0 Yes [id number] 50mg Take 1 Univers (MYRBETRIQ) 1-18 tablet by ity of 50 mg 00:00: mouth [place] tablet 00 daily. [facility] mirabegron 2021-0 Yes [id number] 50mg Take 1 Univers (MYRBETRIQ) 1-18 tablet by ity of 50 mg 00:00: mouth [place] tablet 00 daily. [facility] mirabegron 2021-0 Yes [id number] 50mg Take 1 [facility] (MYRBETRIQ) 1-18 tablet by ity of 50 mg 00:00: mouth [place] tablet 00 daily. [facility] Branch mirabegron 2021-0 Yes [id number] 50mg Take 1 Univers (MYRBETRIQ) 1-18 tablet by ity of 50 mg 00:00: mouth [place] tablet 00 daily. [facility] Branch mirabegron 0 Yes [id number] 50mg Take 1 [facility] (MYRBETRIQ) 1-18 tablet by ity of 50 mg 00:00: mouth [place] tablet 00 daily. [facility] mirabegron 0 Yes [id number] 50mg Take 1 [facility] (MYRBETRIQ) 1-18 tablet by ity of 50 mg 00:00: mouth [place] tablet 00 daily. [facility] mirabegron 0 Yes [id number] 50mg Take 1 [facility] (MYRBETRIQ) 1-18 tablet by ity of 50 mg 00:00: mouth [place] tablet 00 daily. [facility] mirabegron 0 Yes [id number] 50mg Take 1 [facility] (MYRBETRIQ) 1-18 tablet by ity of 50 mg 00:00: mouth [place] tablet 00 daily. [facility] mirabegron 0 Yes [id number] 50mg Take 1 Univers (MYRBETRIQ) 1-18 tablet by ity of 50 mg 00:00: mouth [place] tablet 00 daily. [facility] Branch mirabegron 0 Yes [id number] 50mg Take 1 Univers (MYRBETRIQ) 1-18 tablet by ity of 50 mg 00:00: mouth [place] tablet 00 daily. [facility] mirabegron 0 Yes [id number] 50mg Take 1 Univers (MYRBETRIQ) 1-18 tablet by ity of 50 mg 00:00: mouth [place] tablet 00 daily. [facility] mirabegron 2021-0 Yes [id number] 50mg Take 1 [facility] (MYRBETRIQ) 1-18 tablet by ity of 50 mg 00:00: mouth [place] tablet 00 daily. [facility] mirabegron 0 Yes [id number] 50mg Take 1 [facility] (MYRBETRIQ) 1-18 tablet by ity of 50 mg 00:00: mouth [place] tablet 00 daily. [facility] mirabegron 0 Yes [id number] 50mg Take 1 Univers (MYRBETRIQ) 1-18 tablet by ity of 50 mg 00:00: mouth [place] tablet 00 daily. [facility] mirabegron 0 Yes [id number] 50mg Take 1 [facility] (MYRBETRIQ) 1-18 tablet by ity of 50 mg 00:00: mouth [place] tablet 00 daily. [facility] mirabegron 0 Yes [id number] 50mg Take 1 Univers (MYRBETRIQ) 1-18 tablet by ity of 50 mg 00:00: mouth [place] tablet 00 daily. [facility] mirabegron 0 Yes [id number] 50mg Take 1 [facility] (MYRBETRIQ) 1-18 tablet by ity of 50 mg 00:00: mouth [place] tablet 00 daily. [facility] mirabegron 0 Yes [id number] 50mg Take 1 [facility] (MYRBETRIQ) 1-18 tablet by ity of 50 mg 00:00: mouth [place] tablet 00 daily. [facility] mirabegron 0 Yes [id number] 50mg Take 1 [facility] (MYRBETRIQ) 1-18 tablet by ity of 50 mg 00:00: mouth [place] tablet 00 daily. [facility] mirabegron 0 Yes [id number] 50mg Take 1 [facility] (MYRBETRIQ) 1-18 tablet by ity of 50 mg 00:00: mouth [place] tablet 00 daily. [facility] mirabegron 0 Yes [id number] 50mg Take 1 [facility] (MYRBETRIQ) 1-18 tablet by ity of 50 mg 00:00: mouth [place] tablet 00 daily. [facility] mirabegron 0 Yes [id number] 50mg Take 1 [facility] (MYRBETRIQ) 1-18 tablet by ity of 50 mg 00:00: mouth [place] tablet 00 daily. [facility] mirabegron 0 Yes [id number] 50mg Take 1 [facility] (MYRBETRIQ) 1-18 tablet by ity of 50 mg 00:00: mouth [place] tablet 00 daily. [facility] mirabegron 0 Yes [id number] 50mg Take 1 [facility] (MYRBETRIQ) 1-18 tablet by ity of 50 mg 00:00: mouth [place] tablet 00 daily. [facility] Branch mirabegron 0 Yes [id number] 50mg Take 1 Univers (MYRBETRIQ) 1-18 tablet by ity of 50 mg 00:00: mouth [place] tablet 00 daily. [facility] mirabegron 0 Yes [id number] 50mg Take 1 Univers (MYRBETRIQ) 1-18 tablet by ity of 50 mg 00:00: mouth [place] tablet 00 daily. [facility] mirabegron 0 Yes [id number] 50mg Take 1 [facility] (MYRBETRIQ) 1-18 tablet by ity of 50 mg 00:00: mouth [place] tablet 00 daily. [facility] mirabegron 0 Yes [id number] 50mg Take 1 [facility] (MYRBETRIQ) 1-18 tablet by ity of 50 mg 00:00: mouth [place] tablet 00 daily. [facility] mirabegron Yes [id number] 50mg Take 1 [facility] (MYRBETRIQ) 1-18 tablet by ity of 50 mg 00:00: mouth [place] tablet 00 daily. [facility] mirabegron Yes [id number] 50mg Take 1 [facility] (MYRBETRIQ) 1-18 tablet by ity of 50 mg 00:00: mouth [place] tablet 00 daily. [facility] mirabegron 0 Yes [id number] 50mg Take 1 [facility] (MYRBETRIQ) 1-18 tablet by ity of 50 mg 00:00: mouth [place] tablet 00 daily. [facility] mirabegron 0 Yes [id number] 50mg Take 1 [facility] (MYRBETRIQ) 1-18 tablet by ity of 50 mg 00:00: mouth [place] tablet 00 daily. [facility] mirabegron 0 Yes [id number] 50mg Take 1 [facility] (MYRBETRIQ) 1-18 tablet by ity of 50 mg 00:00: mouth [place] tablet 00 daily. [facility] mirabegron 2022-0 Yes [id number] 50mg Take 1 [facility] (MYRBETRIQ) 1-18 tablet by ity of 50 mg 00:00: mouth [place] tablet 00 daily. [facility] Branch mirabegron 0 Yes [id number] 50mg Take 1 Univers (MYRBETRIQ) 1-18 tablet by ity of 50 mg 00:00: mouth [place] tablet 00 daily. [facility] mirabegron 0 Yes [id number] 50mg Take 1 Univers (MYRBETRIQ) 1-18 tablet by ity of 50 mg 00:00: mouth [place] tablet 00 daily. [facility] mirabegron 0 Yes [id number] 50mg Take 1 Univers (MYRBETRIQ) 1-18 tablet by ity of 50 mg 00:00: mouth [place] tablet 00 daily. [facility] mirabegron 0 Yes [id number] 50mg Take 1 [facility] (MYRBETRIQ) 1-18 tablet by ity of 50 mg 00:00: mouth [place] tablet 00 daily. [facility] mirabegron 0 Yes [id number] 50mg Take 1 [facility] (MYRBETRIQ) 1-18 tablet by ity of 50 mg 00:00: mouth [place] tablet 00 daily. [facility] mirabegron 0 Yes [id number] 50mg Take 1 [facility] (MYRBETRIQ) 1-18 tablet by ity of 50 mg 00:00: mouth [place] tablet 00 daily. [facility] mirabegron 0 Yes [id number] 50mg Take 1 Univers (MYRBETRIQ) 1-18 tablet by ity of 50 mg 00:00: mouth [place] tablet 00 daily. [facility] mirabegron 0 Yes [id number] 50mg Take 1 [facility] (MYRBETRIQ) 1-18 tablet by ity of 50 mg 00:00: mouth [place] tablet 00 daily. [facility] mirabegron 0 Yes [id number] 50mg Take 1 [facility] (MYRBETRIQ) 1-18 tablet by ity of 50 mg 00:00: mouth [place] tablet 00 daily. [facility] mirabegron 0 Yes [id number] 50mg Take 1 [facility] (MYRBETRIQ) 1-18 tablet by ity of 50 mg 00:00: mouth [place] tablet 00 daily. [facility] mirabegron 0 Yes [id number] 50mg Take 1 [facility] (MYRBETRIQ) 1-18 tablet by ity of 50 mg 00:00: mouth [place] tablet 00 daily. [facility] mirabegron 0 Yes [id number] 50mg Take 1 [facility] (MYRBETRIQ) 1-18 tablet by ity of 50 mg 00:00: mouth [place] tablet 00 daily. [facility] mirabegron 0 Yes [id number] 50mg Take 1 Univers (MYRBETRIQ) 1-18 tablet by ity of 50 mg 00:00: mouth [place] tablet 00 daily. [facility] mirabegron 0 Yes [id number] 50mg Take 1 Univers (MYRBETRIQ) 1-18 tablet by ity of 50 mg 00:00: mouth [place] tablet 00 daily. [facility] mirabegron 2021- No [id number] 50mg Take 1 Univers (MYRBETRIQ) 1-18 10-13 tablet by it y of 50 mg 00:00: 00:00 mouth [place] tablet 00 :00 daily. [facility] semaglutide 2020-09 Yes [id number] Inject Univers (OZEMPIC) 2-01 0.25 mg ity of 0.25 mg or 00:00: under the [place] 0.5 mg(2 00 skin Medical mg/1.5 mL) weekly. Branch Ij semaglutide 2020-09 Yes [id number] Inject Univers (OZEMPIC) 2-01 0.25 mg ity of 0.25 mg or 00:00: under the [place] 0.5 mg(2 00 skin Medical mg/1.5 mL) weekly. Branch PnIj semaglutide 2020-09 Yes [id number] Inject [facility] (OZEMPIC) 2-01 0.25 mg ity of 0.25 mg or 00:00: under the [place] 0.5 mg(2 00 skin Medical mg/1.5 mL) weekly. Branch PnIj semaglutide 2020-09 Yes [id number] Inject [facility] (OZEMPIC) 2-01 0.25 mg ity of 0.25 mg or 00:00: under the [place] 0.5 mg(2 00 skin Medical mg/1.5 mL) weekly. Branch Ij semaglutide 2020-09 Yes [id number] Inject [facility] (OZEMPIC) 2-01 0.25 mg ity of 0.25 mg or 00:00: under the [place] 0.5 mg(2 00 skin Medical mg/1.5 mL) weekly. Branch PnIj semaglutide 2020-09 Yes [id number] Inject [facility] (OZEMPIC) 2-01 0.25 mg ity of 0.25 mg or 00:00: under the [place] 0.5 mg(2 00 skin Medical mg/1.5 mL) weekly. Branch PnIj semaglutide 2020-09 Yes [id number] Inject [facility] (OZEMPIC) 2-01 0.25 mg ity of 0.25 mg or 00:00: under the [place] 0.5 mg(2 00 skin Medical mg/1.5 mL) weekly. Branch PnIj semaglutide 2020-09 Yes [id number] Inject [facility] (OZEMPIC) 2-01 0.25 mg ity of 0.25 mg or 00:00: under the [place] 0.5 mg(2 00 skin Medical mg/1.5 mL) weekly. Branch PnIj semaglutide 2020-09 Yes [id number] Inject [facility] (OZEMPIC) 2-01 0.25 mg ity of 0.25 mg or 00:00: under the [place] 0.5 mg(2 00 skin Medical mg/1.5 mL) weekly. Branch PnIj semaglutide 2020-09 Yes [id number] Inject [facility] (OZEMPIC) 2-01 0.25 mg ity of 0.25 mg or 00:00: under the [place] 0.5 mg(2 00 skin Medical mg/1.5 mL) weekly. Branch PnIj semaglutide 2020-09 Yes [id number] Inject [facility] (OZEMPIC) 2-01 0.25 mg ity of 0.25 mg or 00:00: under the [place] 0.5 mg(2 00 skin Medical mg/1.5 mL) weekly. Branch PnIj semaglutide 2020-09 Yes [id number] Inject [facility] (OZEMPIC) 2-01 0.25 mg ity of 0.25 mg or 00:00: under the [place] 0.5 mg(2 00 skin Medical mg/1.5 mL) weekly. Branch PnIj semaglutide 2020-09 Yes [id number] Inject [facility] (OZEMPIC) 2-01 0.25 mg ity of 0.25 mg or 00:00: under the [place] 0.5 mg(2 00 skin Medical mg/1.5 mL) weekly. Branch PnIj semaglutide 2020-09 Yes [id number] Inject [facility] (OZEMPIC) 2-01 0.25 mg ity of 0.25 mg or 00:00: under the [place] 0.5 mg(2 00 skin Medical mg/1.5 mL) weekly. Branch PnIj semaglutide 2020-09 Yes [id number] Inject [facility] (OZEMPIC) 2-01 0.25 mg ity of 0.25 mg or 00:00: under the [place] 0.5 mg(2 00 skin Medical mg/1.5 mL) weekly. Branch PnIj semaglutide 2020-09 Yes [id number] Inject [facility] (OZEMPIC) 2-01 0.25 mg ity of 0.25 mg or 00:00: under the [place] 0.5 mg(2 00 skin Medical mg/1.5 mL) weekly. Branch PnIj semaglutide 2020-09 Yes [id number] Inject [facility] (OZEMPIC) 2-01 0.25 mg ity of 0.25 mg or 00:00: under the [place] 0.5 mg(2 00 skin Medical mg/1.5 mL) weekly. Branch PnIj semaglutide 2020-09 Yes [id number] Inject [facility] (OZEMPIC) 2-01 0.25 mg ity of 0.25 mg or 00:00: under the [place] 0.5 mg(2 00 skin Medical mg/1.5 mL) weekly. Branch PnIj semaglutide 2020-09 Yes [id number] Inject [facility] (OZEMPIC) 2-01 0.25 mg ity of 0.25 mg or 00:00: under the [place] 0.5 mg(2 00 skin Medical mg/1.5 mL) weekly. Branch PnIj semaglutide 2020-09 Yes [id number] Inject [facility] (OZEMPIC) 2-01 0.25 mg ity of 0.25 mg or 00:00: under the [place] 0.5 mg(2 00 skin Medical mg/1.5 mL) weekly. Branch PnIj semaglutide 2020-09 Yes [id number] Inject [facility] (OZEMPIC) 2-01 0.25 mg ity of 0.25 mg or 00:00: under the [place] 0.5 mg(2 00 skin Medical mg/1.5 mL) weekly. Branch PnIj semaglutide 2020-09 Yes [id number] Inject [facility] (OZEMPIC) 2-01 0.25 mg ity of 0.25 mg or 00:00: under the [place] 0.5 mg(2 00 skin Medical mg/1.5 mL) weekly. Branch PnIj semaglutide 2020-09 Yes [id number] Inject [facility] (OZEMPIC) 2-01 0.25 mg ity of 0.25 mg or 00:00: under the [place] 0.5 mg(2 00 skin Medical mg/1.5 mL) weekly. Branch PnIj semaglutide 2020-09 Yes [id number] Inject [facility] (OZEMPIC) 2-01 0.25 mg ity of 0.25 mg or 00:00: under the [place] 0.5 mg(2 00 skin Medical mg/1.5 mL) weekly. Branch PnIj semaglutide 2020-09 Yes [id number] Inject [facility] (OZEMPIC) 2-01 0.25 mg ity of 0.25 mg or 00:00: under the [place] 0.5 mg(2 00 skin Medical mg/1.5 mL) weekly. Branch PnIj semaglutide 2020-09 Yes [id number] Inject [facility] (OZEMPIC) 2-01 0.25 mg ity of 0.25 mg or 00:00: under the [place] 0.5 mg(2 00 skin Medical mg/1.5 mL) weekly. Branch PnIj semaglutide 2020-09 Yes [id number] Inject [facility] (OZEMPIC) 2-01 0.25 mg ity of 0.25 mg or 00:00: under the [place] 0.5 mg(2 00 skin Medical mg/1.5 mL) weekly. Branch PnIj semaglutide 2020-09 Yes [id number] Inject [facility] (OZEMPIC) 2-01 0.25 mg ity of 0.25 mg or 00:00: under the [place] 0.5 mg(2 00 skin Medical mg/1.5 mL) weekly. Branch PnIj semaglutide 2020-09 Yes [id number] Inject [facility] (OZEMPIC) 2-01 0.25 mg ity of 0.25 mg or 00:00: under the [place] 0.5 mg(2 00 skin Medical mg/1.5 mL) weekly. Branch PnIj semaglutide 2020-09 Yes [id number] Inject [facility] (OZEMPIC) 2-01 0.25 mg ity of 0.25 mg or 00:00: under the [place] 0.5 mg(2 00 skin Medical mg/1.5 mL) weekly. Branch PnIj semaglutide 2020-09 Yes [id number] Inject [facility] (OZEMPIC) 2-01 0.25 mg ity of 0.25 mg or 00:00: under the [place] 0.5 mg(2 00 skin Medical mg/1.5 mL) weekly. Branch PnIj semaglutide 2020-09 Yes [id number] Inject [facility] (OZEMPIC) 2-01 0.25 mg ity of 0.25 mg or 00:00: under the [place] 0.5 mg(2 00 skin Medical mg/1.5 mL) weekly. Branch PnIj semaglutide 2020-09 Yes [id number] Inject [facility] (OZEMPIC) 2-01 0.25 mg ity of 0.25 mg or 00:00: under the [place] 0.5 mg(2 00 skin Medical mg/1.5 mL) weekly. Branch PnIj semaglutide 2020-09 Yes [id number] Inject [facility] (OZEMPIC) 2-01 0.25 mg ity of 0.25 mg or 00:00: under the [place] 0.5 mg(2 00 skin Medical mg/1.5 mL) weekly. Branch PnIj semaglutide 2020-09 Yes [id number] Inject [facility] (OZEMPIC) 2-01 0.25 mg ity of 0.25 mg or 00:00: under the [place] 0.5 mg(2 00 skin Medical mg/1.5 mL) weekly. Branch PnIj semaglutide 2020-09 Yes [id number] Inject [facility] (OZEMPIC) 2-01 0.25 mg ity of 0.25 mg or 00:00: under the [place] 0.5 mg(2 00 skin Medical mg/1.5 mL) weekly. Branch PnIj semaglutide 2020-09 Yes [id number] Inject [facility] (OZEMPIC) 2-01 0.25 mg ity of 0.25 mg or 00:00: under the [place] 0.5 mg(2 00 skin Medical mg/1.5 mL) weekly. Branch PnIj semaglutide 2020-09 Yes [id number] Inject [facility] (OZEMPIC) 2-01 0.25 mg ity of 0.25 mg or 00:00: under the [place] 0.5 mg(2 00 skin Medical mg/1.5 mL) weekly. Branch PnIj semaglutide 2020-09 Yes [id number] Inject [facility] (OZEMPIC) 2-01 0.25 mg ity of 0.25 mg or 00:00: under the [place] 0.5 mg(2 00 skin Medical mg/1.5 mL) weekly. Branch PnIj semaglutide 2020-09 Yes [id number] Inject [facility] (OZEMPIC) 2-01 0.25 mg ity of 0.25 mg or 00:00: under the [place] 0.5 mg(2 00 skin Medical mg/1.5 mL) weekly. Branch PnIj semaglutide 2020-09 Yes [id number] Inject [facility] (OZEMPIC) 2-01 0.25 mg ity of 0.25 mg or 00:00: under the [place] 0.5 mg(2 00 skin Medical mg/1.5 mL) weekly. Branch PnIj semaglutide 2020-09 Yes [id number] Inject [facility] (OZEMPIC) 2-01 0.25 mg ity of 0.25 mg or 00:00: under the [place] 0.5 mg(2 00 skin Medical mg/1.5 mL) weekly. Branch PnIj semaglutide 2020-09 Yes [id number] Inject [facility] (OZEMPIC) 2-01 0.25 mg ity of 0.25 mg or 00:00: under the [place] 0.5 mg(2 00 skin Medical mg/1.5 mL) weekly. Branch PnIj semaglutide 2020-09 Yes [id number] Inject [facility] (OZEMPIC) 2-01 0.25 mg ity of 0.25 mg or 00:00: under the [place] 0.5 mg(2 00 skin Medical mg/1.5 mL) weekly. [place] [facility] semaglutide 2020-09 Yes [id number] Inject [facility] (OZEMPIC) 2-01 0.25 mg ity of 0.25 mg or 00:00: under the [place] 0.5 mg(2 00 skin [facility] mg/1.5 mL) weekly. [facility] Yes [id number] Inject [facility] (OZEMPIC) 2- 0.25 mg ity of 0.25 mg or 00:00: under the [place] 0.5 mg(2 00 skin Medical mg/1.5 mL) weekly. [facility]09 Yes [id number] Inject [facility] (OZEMPIC) 2-01 0.25 mg ity of 0.25 mg or 00:00: under the [place] 0.5 mg(2 00 skin Medical mg/1.5 mL) weekly. [facility]09 Yes [id number] Inject [facility] (OZEMPIC) 2-01 0.25 mg ity of 0.25 mg or 00:00: under the [place] 0.5 mg(2 00 skin Medical mg/1.5 mL) weekly. [facility]- No [id number] Inject [facility] (OZEMPIC) 2- 10-13 0.25 mg ity of 0.25 mg or 00:00: 00:00 under the [place] 0.5 mg(2 00 :00 skin Medical mg/1.5 mL) weekly. Branch RyIj metformin 2020-09- No [id number] 500mg Take 1 [facility] ER 500 mg 10-27 tablet by ity of 24 hr 00:00: 00:00 mouth [place] tablet 00 :00 daily with Medical breakfast. Branch STOP REGULAR METFORMIN. metformin 2020-09- No [id number] 500mg Take 1 [facility] ER 500 mg 10-27 tablet by ity of 24 hr 00:00: 00:00 mouth [place] tablet 00 :00 daily with Medical breakfast. Branch STOP REGULAR METFORMIN. cyanocobala 2020-09 Yes [id number] 1000ug 1 mL by [facility] min 1,000 1-09 Intramuscu ity of mcg/mL 00:00: lar route [place] injection 00 every 2 Medical (two) Branch weeks. levothyroxi 2020-09 Yes [id number] 50ug Take 1 [facility] ne 50 mcg 1-09 tablet by ity o f tablet 00:00: mouth [place] 00 every Medical morning. Branch fluticasone 2020-09 Yes [id number] 2{puff} Inhale 2 [facility] propionate 1-09 Puffs ity of (FLOVENT 00:00: every 12 [place] HFA) 110 00 (twelve) Medical mcg/actuati hours. Branch on inhaler Rinse mouth after each use. levalbutero 2020-09 Yes [id number] .63mg Inhale [facility] l 0.63 mg/3 1-09 0.63 mg 3 ity of mL 00:00: (three) [place] nebulizer 00 times Medical solution daily as Branch needed for Wheezing or Shortness of Breath. losartan 50 2020-09 Yes [id number] 50mg Take 1 [facility] mg tablet 1-09 tablet by ity o f 00:00: mouth 2 [place] 00 (two) Medical times Branch daily. clotrimazol 2020-09 Yes [id number] Apply to [facility] e-betametha 1-09 area(s) 2 ity of sone cream 00:00: (two) [place] 00 times Medical daily. Branch cyclobenzap 2020-09 Yes [id number] TAKE 1 [facility] rine 5 mg 1-09 TABLET BY ity o f tablet 00:00: MOUTH [place] 00 EVERY 8 Medical HOURS Branch NEEDED econazole 2020-09 Yes [id number] Apply to [facility] nitrate 1 % 1-09 area(s) 2 ity of cream 00:00: (two) [place] 00 times Medical daily. Branch albuterol 2020-09 Yes [id number] 2{puff} Inhale 2 [facility] (PROAIR 1-09 Puffs ity of HFA) 90 00:00: every 6 [place] mcg/actuati 00 (six) Medical on inhaler hours as Branc h needed for Wheezing or Shortness of Breath. triamcinolo 2020-09 Yes [id number] Apply to [facility] ne 0.025 % 1-09 area(s) 3 ity of ointment 00:00: (three) [place] 00 times Medical daily. For Branch itching diltiazem 2020-09 Yes [id number] 120mg Take 1 [facility] n[facility] (CARTIA XT) -09 capsule by it y of 120 mg 24 00:00: mouth 2 [place] hr capsule 00 (two) Medical times Branch daily. cyanocobala 2020-09 Yes [id number] 1000ug 1 mL by [facility] min 1,000 -09 Intramuscu ity of mcg/mL 00:00: lar route [place] injection 00 every 2 Medical (two) Branch weeks. levothyroxi 2020-09 Yes [id number] 50ug Take 1 [facility] ne 50 mcg -09 tablet by ity o f tablet 00:00: mouth [place] 00 every Medical morning. Branch fluticasone 2020-09 Yes [id number] 2{puff} Inhale 2 [facility] propionate -09 Puffs ity of (FLOVENT 00:00: every 12 [place] HFA) 110 00 (twelve) Medical mcg/actuati hours. Branch on inhaler Rinse mouth after each use. levalbutero 2020-09 Yes [id number] .63mg Inhale [facility] l 0.63 mg/3 -09 0.63 mg 3 ity of mL 00:00: (three) [place] nebulizer 00 times Medical solution daily as Branch needed for Wheezing or Shortness of Breath. losartan 50 2020-09 Yes [id number] 50mg Take 1 [facility] mg tablet 09 tablet by ity o f 00:00: mouth 2 [place] 00 (two) Medical times Branch daily. clotrimazol 2020-09 Yes [id number] Apply to [facility] e-betametha 10-04 area(s) 2 ity of sone cream 00:00: (two) [place] 00 times Medical daily. Branch cyclobenzap 2020-09 Yes [id number] TAKE 1 [facility] rine 5 mg 1-09 TABLET BY ity o f tablet 00:00: MOUTH [place] 00 EVERY 8 Medical HOURS Branch NEEDED econazole 2020-09 Yes [id number] Apply to [facility] nitrate 1 % 09 area(s) 2 ity of cream 00:00: (two) [place] 00 times Medical daily. Branch albuterol 2020-09 Yes [id number] 2{puff} Inhale 2 [facility] (PROAIR 1-09 Puffs ity of HFA) 90 00:00: every 6 [place] mcg/actuati 00 (six) Medical on inhaler hours as Branc h needed for Wheezing or Shortness of Breath. triamcinolo 2020-09 Yes [id number] Apply to [facility] ne 0.025 % 09 area(s) 3 ity of ointment 00:00: (three) [place] 00 times Medical daily. For Branch itching diltiazem 2020-09 Yes [id number] 120mg Take 1 [facility] n[facility] (CARTIA XT) 09 capsule by it y of 120 mg 24 00:00: mouth 2 [place] hr capsule 00 (two) Medical times Branch daily. cyanocobala 2020-09 Yes [id number] 1000ug 1 mL by [facility] min 1,000 -09 Intramuscu ity of mcg/mL 00:00: lar route [place] injection 00 every 2 Medical (two) Branch weeks. levothyroxi 2020-09 Yes [id number] 50ug Take 1 [facility] ne 50 mcg 10-04 tablet by ity o f tablet 00:00: mouth [place] 00 every Medical morning. Branch fluticasone 2020-09 Yes [id number] 2{puff} Inhale 2 [facility] propionate 1-09 Puffs ity of (FLOVENT 00:00: every 12 [place] HFA) 110 00 (twelve) Medical mcg/actuati hours. Branch on inhaler Rinse mouth after each use. levalbutero 2020-09 Yes [id number] .63mg Inhale [facility] l 0.63 mg/3 1-09 0.63 mg 3 ity of mL 00:00: (three) [place] nebulizer 00 times Medical solution daily as Branch needed for Wheezing or Shortness of Breath. losartan 50 2020-09 Yes [id number] 50mg Take 1 [facility] mg tablet -09 tablet by ity o f 00:00: mouth 2 [place] 00 (two) Medical times Branch daily. clotrimazol 2020-09 Yes [id number] Apply to [facility] e-betametha -09 area(s) 2 ity of sone cream 00:00: (two) [place] 00 times Medical daily. Branch cyclobenzap 2020-09 Yes [id number] TAKE 1 [facility] rine 5 mg -09 TABLET BY ity o f tablet 00:00: MOUTH [place] 00 EVERY 8 Medical HOURS Branch NEEDED econazole 2020-09 Yes [id number] Apply to [facility] nitrate 1 % 1-09 area(s) 2 ity of cream 00:00: (two) [place] 00 times Medical daily. Branch albuterol 2020-09 Yes [id number] 2{puff} Inhale 2 [facility] (PROAIR 1-09 Puffs ity of HFA) 90 00:00: every 6 [place] mcg/actuati 00 (six) Medical on inhaler hours as Branc h needed for Wheezing or Shortness of Breath. triamcinolo 2020-09 Yes [id number] Apply to [facility] ne 0.025 % 1-09 area(s) 3 ity of ointment 00:00: (three) [place] 00 times Medical daily. For Branch itching diltiazem 2020-09 Yes [id number] 120mg Take 1 [facility] nivers (CARTIA XT) 1-09 capsule by it y of 120 mg 24 00:00: mouth 2 [place] hr capsule 00 (two) Medical times Branch daily. cyanocobala 2020-09 Yes [id number] 1000ug 1 mL by [facility] min 1,000 1-09 Intramuscu ity of mcg/mL 00:00: lar route [place] injection 00 every 2 Medical (two) Branch weeks. levothyroxi 2020-09 Yes [id number] 50ug Take 1 [facility] ne 50 mcg 1-09 tablet by ity o f tablet 00:00: mouth [place] 00 every Medical morning. Branch fluticasone 2020-09 Yes [id number] 2{puff} Inhale 2 [facility] propionate 1-09 Puffs ity of (FLOVENT 00:00: every 12 [place] HFA) 110 00 (twelve) Medical mcg/actuati hours. Branch on inhaler Rinse mouth after each use. levalbutero 2020-09 Yes [id number] .63mg Inhale [facility] l 0.63 mg/3 1-09 0.63 mg 3 ity of mL 00:00: (three) [place] nebulizer 00 times Medical solution daily as Branch needed for Wheezing or Shortness of Breath. losartan 50 2020-09 Yes [id number] 50mg Take 1 [facility] mg tablet 1-09 tablet by ity o f 00:00: mouth 2 [place] 00 (two) Medical times Branch daily. clotrimazol 2020-09 Yes [id number] Apply to [facility] e-betametha 09 area(s) 2 ity of sone cream 00:00: (two) [place] 00 times Medical daily. Branch cyclobenzap 2020-09 Yes [id number] TAKE 1 [facility] rine 5 mg -09 TABLET BY ity o f tablet 00:00: MOUTH [place] 00 EVERY 8 Medical HOURS Branch NEEDED econazole 2020-09 Yes [id number] Apply to [facility] nitrate 1 % 10-04 area(s) 2 ity of cream 00:00: (two) [place] 00 times Medical daily. Branch albuterol 2020-09 Yes [id number] 2{puff} Inhale 2 [facility] (PROAIR 1-09 Puffs ity of HFA) 90 00:00: every 6 [place] mcg/actuati 00 (six) Medical on inhaler hours as Branc h needed for Wheezing or Shortness of Breath. triamcinolo 2020-09 Yes [id number] Apply to [facility] ne 0.025 % 10-04 area(s) 3 ity of ointment 00:00: (three) [place] 00 times Medical daily. For Branch itching diltiazem 2020-09 Yes [id number] 120mg Take 1 [facility] nivers (CARTIA XT) 10-04 capsule by it y of 120 mg 24 00:00: mouth 2 [place] hr capsule 00 (two) Medical times Branch daily. cyanocobala 2020-09 Yes [id number] 1000ug 1 mL by [facility] min 1,000 1-09 Intramuscu ity of mcg/mL 00:00: lar route [place] injection 00 every 2 Medical (two) Branch weeks. levothyroxi 2020-09 Yes [id number] 50ug Take 1 [facility] ne 50 mcg -09 tablet by ity o f tablet 00:00: mouth [place] 00 every Medical morning. Branch fluticasone 2020-09 Yes [id number] 2{puff} Inhale 2 [facility] propionate 1-09 Puffs ity of (FLOVENT 00:00: every 12 [place] HFA) 110 00 (twelve) Medical mcg/actuati hours. Branch on inhaler Rinse mouth after each use. levalbutero 2020-09 Yes [id number] .63mg Inhale [facility] l 0.63 mg/3 1-09 0.63 mg 3 ity of mL 00:00: (three) [place] nebulizer 00 times Medical solution daily as Branch needed for Wheezing or Shortness of Breath. clotrimazol 2020-09 Yes [id number] Apply to [facility] e-betametha 09 area(s) 2 ity of sone cream 00:00: (two) [place] 00 times Medical daily. Branch cyclobenzap 2020-09 Yes [id number] TAKE 1 [facility] rine 5 mg 09 TABLET BY ity o f tablet 00:00: MOUTH [place] 00 EVERY 8 Medical HOURS Branch NEEDED econazole 2020-09 Yes [id number] Apply to [facility] nitrate 1 % 10-04 area(s) 2 ity of cream 00:00: (two) [place] 00 times Medical daily. Branch albuterol 2020-09 Yes [id number] 2{puff} Inhale 2 [facility] (PROAIR 1-09 Puffs ity of HFA) 90 00:00: every 6 [place] mcg/actuati 00 (six) Medical on inhaler hours as Branc h needed for Wheezing or Shortness of Breath. triamcinolo 2020-09 Yes [id number] Apply to [facility] ne 0.025 % 10-04 area(s) 3 ity of ointment 00:00: (three) [place] 00 times Medical daily. For Branch itching cyanocobala 2020-09 Yes [id number] 1000ug 1 mL by [facility] min 1,000 -09 Intramuscu ity of mcg/mL 00:00: lar route [place] injection 00 every 2 Medical (two) Branch weeks. levothyroxi 2020-09 Yes [id number] 50ug Take 1 [facility] ne 50 mcg 10-04 tablet by ity o f tablet 00:00: mouth [place] 00 every Medical morning. Branch fluticasone 2020-09 Yes [id number] 2{puff} Inhale 2 [facility] propionate 1-09 Puffs ity of (FLOVENT 00:00: every 12 [place] HFA) 110 00 (twelve) Medical mcg/actuati hours. Branch on inhaler Rinse mouth after each use. levalbutero 2020-09 Yes [id number] .63mg Inhale [facility] l 0.63 mg/3 1-09 0.63 mg 3 ity of mL 00:00: (three) [place] nebulizer 00 times Medical solution daily as Branch needed for Wheezing or Shortness of Breath. clotrimazol 2020-09 Yes [id number] Apply to [facility] e-betametha -09 area(s) 2 ity of sone cream 00:00: (two) [place] 00 times Medical daily. Branch cyclobenzap 2020-09 Yes [id number] TAKE 1 [facility] rine 5 mg -09 TABLET BY ity o f tablet 00:00: MOUTH [place] 00 EVERY 8 Medical HOURS Branch NEEDED econazole 2020-09 Yes [id number] Apply to [facility] nitrate 1 % -09 area(s) 2 ity of cream 00:00: (two) [place] 00 times Medical daily. Branch albuterol 2020-09 Yes [id number] 2{puff} Inhale 2 [facility] (PROAIR 1-09 Puffs ity of HFA) 90 00:00: every 6 [place] mcg/actuati 00 (six) Medical on inhaler hours as Branc h needed for Wheezing or Shortness of Breath. triamcinolo 2020-09 Yes [id number] Apply to [facility] ne 0.025 % 09 area(s) 3 ity of ointment 00:00: (three) [place] 00 times Medical daily. For Branch itching cyanocobala 2020-09 Yes [id number] 1000ug 1 mL by [facility] min 1,000 1-09 Intramuscu ity of mcg/mL 00:00: lar route [place] injection 00 every 2 Medical (two) Branch weeks. levothyroxi 2020-09 Yes [id number] 50ug Take 1 [facility] ne 50 mcg 09 tablet by ity o f tablet 00:00: mouth [place] 00 every Medical morning. Branch fluticasone 2020-09 Yes [id number] 2{puff} Inhale 2 [facility] propionate 1-09 Puffs ity of (FLOVENT 00:00: every 12 [place] HFA) 110 00 (twelve) Medical mcg/actuati hours. Branch on inhaler Rinse mouth after each use. levalbutero 2020-09 Yes [id number] .63mg Inhale [facility] l 0.63 mg/3 1-09 0.63 mg 3 ity of mL 00:00: (three) [place] nebulizer 00 times Medical solution daily as Branch needed for Wheezing or Shortness of Breath. clotrimazol 2020-09 Yes [id number] Apply to [facility] e-betametha -09 area(s) 2 ity of sone cream 00:00: (two) [place] 00 times Medical daily. Branch cyclobenzap 2020-09 Yes [id number] TAKE 1 [facility] rine 5 mg 1-09 TABLET BY ity o f tablet 00:00: MOUTH [place] 00 EVERY 8 Medical HOURS Branch NEEDED econazole 2020-09 Yes [id number] Apply to [facility] nitrate 1 % -09 area(s) 2 ity of cream 00:00: (two) [place] 00 times Medical daily. Branch albuterol 2020-09 Yes [id number] 2{puff} Inhale 2 [facility] (PROAIR 1-09 Puffs ity of HFA) 90 00:00: every 6 [place] mcg/actuati 00 (six) Medical on inhaler hours as Branc h needed for Wheezing or Shortness of Breath. triamcinolo 2020-09 Yes [id number] Apply to [facility] ne 0.025 % 10-04 area(s) 3 ity of ointment 00:00: (three) [place] 00 times Medical daily. For Branch itching cyanocobala 2020-09 Yes [id number] 1000ug 1 mL by [facility] min 1,000 1-09 Intramuscu ity of mcg/mL 00:00: lar route [place] injection 00 every 2 Medical (two) Branch weeks. levothyroxi 2020-09 Yes [id number] 50ug Take 1 [facility] ne 50 mcg -09 tablet by ity o f tablet 00:00: mouth [place] 00 every Medical morning. Branch fluticasone 2020-09 Yes [id number] 2{puff} Inhale 2 [facility] propionate 1-09 Puffs ity of (FLOVENT 00:00: every 12 [place] HFA) 110 00 (twelve) Medical mcg/actuati hours. Branch on inhaler Rinse mouth after each use. levalbutero 2020-09 Yes [id number] .63mg Inhale [facility] l 0.63 mg/3 1-09 0.63 mg 3 ity of mL 00:00: (three) [place] nebulizer 00 times Medical solution daily as Branch needed for Wheezing or Shortness of Breath. clotrimazol 2020-09 Yes [id number] Apply to [facility] e-betametha -09 area(s) 2 ity of sone cream 00:00: (two) [place] 00 times Medical daily. Branch cyclobenzap 2020-09 Yes [id number] TAKE 1 [facility] rine 5 mg -09 TABLET BY ity o f tablet 00:00: MOUTH [place] 00 EVERY 8 Medical HOURS Branch NEEDED econazole 2020-09 Yes [id number] Apply to [facility] nitrate 1 % 09 area(s) 2 ity of cream 00:00: (two) [place] 00 times Medical daily. Branch albuterol 2020-09 Yes [id number] 2{puff} Inhale 2 [facility] (PROAIR 1-09 Puffs ity of HFA) 90 00:00: every 6 [place] mcg/actuati 00 (six) Medical on inhaler hours as Branc h needed for Wheezing or Shortness of Breath. triamcinolo 2020-09 Yes [id number] Apply to [facility] ne 0.025 % 10-04 area(s) 3 ity of ointment 00:00: (three) [place] 00 times Medical daily. For Branch itching cyanocobala 2020-09 Yes [id number] 1000ug 1 mL by [facility] min 1,000 09 Intramuscu ity of mcg/mL 00:00: lar route [place] injection 00 every 2 Medical (two) Branch weeks. levothyroxi 2020-09 Yes [id number] 50ug Take 1 [facility] ne 50 mcg -09 tablet by ity o f tablet 00:00: mouth [place] 00 every Medical morning. Branch fluticasone 2020-09 Yes [id number] 2{puff} Inhale 2 [facility] propionate 1-09 Puffs ity of (FLOVENT 00:00: every 12 [place] HFA) 110 00 (twelve) Medical mcg/actuati hours. Branch on inhaler Rinse mouth after each use. levalbutero 2020-09 Yes [id number] .63mg Inhale [facility] l 0.63 mg/3 1-09 0.63 mg 3 ity of mL 00:00: (three) [place] nebulizer 00 times Medical solution daily as Branch needed for Wheezing or Shortness of Breath. clotrimazol 2020-09 Yes [id number] Apply to [facility] e-betametha -09 area(s) 2 ity of sone cream 00:00: (two) [place] 00 times Medical daily. Branch cyclobenzap 2020-09 Yes [id number] TAKE 1 [facility] rine 5 mg 1-09 TABLET BY ity o f tablet 00:00: MOUTH [place] 00 EVERY 8 Medical HOURS Branch NEEDED econazole 2020-09 Yes [id number] Apply to [facility] nitrate 1 % -09 area(s) 2 ity of cream 00:00: (two) [place] 00 times Medical daily. Branch albuterol 2020-09 Yes [id number] 2{puff} Inhale 2 [facility] (PROAIR 1-09 Puffs ity of HFA) 90 00:00: every 6 [place] mcg/actuati 00 (six) Medical on inhaler hours as Branc h needed for Wheezing or Shortness of Breath. triamcinolo 2020-09 Yes [id number] Apply to [facility] ne 0.025 % 10-04 area(s) 3 ity of ointment 00:00: (three) [place] 00 times Medical daily. For Branch itching cyanocobala 2020-09 Yes [id number] 1000ug 1 mL by [facility] min 1,000 -09 Intramuscu ity of mcg/mL 00:00: lar route [place] injection 00 every 2 Medical (two) Branch weeks. levothyroxi 2020-09 Yes [id number] 50ug Take 1 [facility] ne 50 mcg -09 tablet by ity o f tablet 00:00: mouth [place] 00 every Medical morning. Branch fluticasone 2020-09 Yes [id number] 2{puff} Inhale 2 [facility] propionate 1-09 Puffs ity of (FLOVENT 00:00: every 12 [place] HFA) 110 00 (twelve) Medical mcg/actuati hours. Branch on inhaler Rinse mouth after each use. levalbutero 2020-09 Yes [id number] .63mg Inhale [facility] l 0.63 mg/3 1-09 0.63 mg 3 ity of mL 00:00: (three) [place] nebulizer 00 times Medical solution daily as Branch needed for Wheezing or Shortness of Breath. clotrimazol 2020-09 Yes [id number] Apply to [facility] e-betametha -09 area(s) 2 ity of sone cream 00:00: (two) [place] 00 times Medical daily. Branch cyclobenzap 2020-09 Yes [id number] TAKE 1 [facility] rine 5 mg 1-09 TABLET BY ity o f tablet 00:00: MOUTH [place] 00 EVERY 8 Medical HOURS Branch NEEDED econazole 2020-09 Yes [id number] Apply to [facility] nitrate 1 % 1-09 area(s) 2 ity of cream 00:00: (two) [place] 00 times Medical daily. Branch albuterol 2020-09 Yes [id number] 2{puff} Inhale 2 [facility] (PROAIR 1-09 Puffs ity of HFA) 90 00:00: every 6 [place] mcg/actuati 00 (six) Medical on inhaler hours as Branc h needed for Wheezing or Shortness of Breath. triamcinolo 2020-09 Yes [id number] Apply to [facility] ne 0.025 % -09 area(s) 3 ity of ointment 00:00: (three) [place] 00 times Medical daily. For Branch itching cyanocobala 2020-09 Yes [id number] 1000ug 1 mL by [facility] min 1,000 1-09 Intramuscu ity of mcg/mL 00:00: lar route [place] injection 00 every 2 Medical (two) Branch weeks. levothyroxi 2020-09 Yes [id number] 50ug Take 1 [facility] ne 50 mcg 1-09 tablet by ity o f tablet 00:00: mouth [place] 00 every Medical morning. Branch fluticasone 2020-09 Yes [id number] 2{puff} Inhale 2 [facility] propionate 1-09 Puffs ity of (FLOVENT 00:00: every 12 [place] HFA) 110 00 (twelve) Medical mcg/actuati hours. Branch on inhaler Rinse mouth after each use. levalbutero 2020-09 Yes [id number] .63mg Inhale [facility] l 0.63 mg/3 1-09 0.63 mg 3 ity of mL 00:00: (three) [place] nebulizer 00 times Medical solution daily as Branch needed for Wheezing or Shortness of Breath. clotrimazol 2020-09 Yes [id number] Apply to [facility] e-betametha 1-09 area(s) 2 ity of sone cream 00:00: (two) [place] 00 times Medical daily. Branch cyclobenzap 2020-09 Yes [id number] TAKE 1 [facility] rine 5 mg 1-09 TABLET BY ity o f tablet 00:00: MOUTH [place] 00 EVERY 8 Medical HOURS Branch NEEDED econazole 2020-09 Yes [id number] Apply to [facility] nitrate 1 % -09 area(s) 2 ity of cream 00:00: (two) [place] 00 times Medical daily. Branch albuterol 2020-09 Yes [id number] 2{puff} Inhale 2 [facility] (PROAIR 1-09 Puffs ity of HFA) 90 00:00: every 6 [place] mcg/actuati 00 (six) Medical on inhaler hours as Branc h needed for Wheezing or Shortness of Breath. triamcinolo 2020-09 Yes [id number] Apply to [facility] ne 0.025 % - area(s) 3 ity of ointment 00:00: (three) [place] 00 times Medical daily. For Branch itching cyanocobala 2020-09 Yes [id number] 1000ug 1 mL by [facility] min 1,000 -09 Intramuscu ity of mcg/mL 00:00: lar route [place] injection 00 every 2 Medical (two) Branch weeks. levothyroxi 2020-09 Yes [id number] 50ug Take 1 [facility] ne 50 mcg -09 tablet by ity o f tablet 00:00: mouth [place] 00 every Medical morning. Branch fluticasone 2020-09 Yes [id number] 2{puff} Inhale 2 [facility] propionate 1-09 Puffs ity of (FLOVENT 00:00: every 12 [place] HFA) 110 00 (twelve) Medical mcg/actuati hours. Branch on inhaler Rinse mouth after each use. levalbutero 2020-09 Yes [id number] .63mg Inhale [facility] l 0.63 mg/3 -09 0.63 mg 3 ity of mL 00:00: (three) [place] nebulizer 00 times Medical solution daily as Branch needed for Wheezing or Shortness of Breath. clotrimazol 2020-09 Yes [id number] Apply to [facility] e-betametha -09 area(s) 2 ity of sone cream 00:00: (two) [place] 00 times Medical daily. Branch cyclobenzap 2020-09 Yes [id number] TAKE 1 [facility] rine 5 mg 1-09 TABLET BY ity o f tablet 00:00: MOUTH [place] 00 EVERY 8 Medical HOURS Branch NEEDED econazole 2020-09 Yes [id number] Apply to [facility] nitrate 1 % 1-09 area(s) 2 ity of cream 00:00: (two) [place] 00 times Medical daily. Branch albuterol 2020-09 Yes [id number] 2{puff} Inhale 2 [facility] (PROAIR 1-09 Puffs ity of HFA) 90 00:00: every 6 [place] mcg/actuati 00 (six) Medical on inhaler hours as Branc h needed for Wheezing or Shortness of Breath. triamcinolo 2020-09 Yes [id number] Apply to [facility] ne 0.025 % -09 area(s) 3 ity of ointment 00:00: (three) [place] 00 times Medical daily. For Branch itching cyanocobala 2020-09 Yes [id number] 1000ug 1 mL by [facility] min 1,000 -09 Intramuscu ity of mcg/mL 00:00: lar route [place] injection 00 every 2 Medical (two) Branch weeks. levothyroxi 2020-09 Yes [id number] 50ug Take 1 [facility] ne 50 mcg -09 tablet by ity o f tablet 00:00: mouth [place] 00 every Medical morning. Branch fluticasone 2020-09 Yes [id number] 2{puff} Inhale 2 [facility] propionate 1-09 Puffs ity of (FLOVENT 00:00: every 12 [place] HFA) 110 00 (twelve) Medical mcg/actuati hours. Branch on inhaler Rinse mouth after each use. levalbutero 2020-09 Yes [id number] .63mg Inhale [facility] l 0.63 mg/3 1-09 0.63 mg 3 ity of mL 00:00: (three) [place] nebulizer 00 times Medical solution daily as Branch needed for Wheezing or Shortness of Breath. clotrimazol 2020-09 Yes [id number] Apply to [facility] e-betametha -09 area(s) 2 ity of sone cream 00:00: (two) [place] 00 times Medical daily. Branch cyclobenzap 2020-09 Yes [id number] TAKE 1 [facility] rine 5 mg -09 TABLET BY ity o f tablet 00:00: MOUTH [place] 00 EVERY 8 Medical HOURS Branch NEEDED econazole 2020-09 Yes [id number] Apply to [facility] nitrate 1 % -09 area(s) 2 ity of cream 00:00: (two) [place] 00 times Medical daily. Branch albuterol 2020-09 Yes [id number] 2{puff} Inhale 2 [facility] (PROAIR 1-09 Puffs ity of HFA) 90 00:00: every 6 [place] mcg/actuati 00 (six) Medical on inhaler hours as Branc h needed for Wheezing or Shortness of Breath. triamcinolo 2020-09 Yes [id number] Apply to [facility] ne 0.025 % 1-09 area(s) 3 ity of ointment 00:00: (three) [place] 00 times Medical daily. For Branch itching cyanocobala 2020-09 Yes [id number] 1000ug 1 mL by [facility] min 1,000 -09 Intramuscu ity of mcg/mL 00:00: lar route [place] injection 00 every 2 Medical (two) Branch weeks. levothyroxi 2020-09 Yes [id number] 50ug Take 1 [facility] ne 50 mcg -09 tablet by ity o f tablet 00:00: mouth [place] 00 every Medical morning. Branch fluticasone 2020-09 Yes [id number] 2{puff} Inhale 2 [facility] propionate 1-09 Puffs ity of (FLOVENT 00:00: every 12 [place] HFA) 110 00 (twelve) Medical mcg/actuati hours. Branch on inhaler Rinse mouth after each use. levalbutero 2020-09 Yes [id number] .63mg Inhale [facility] l 0.63 mg/3 1-09 0.63 mg 3 ity of mL 00:00: (three) [place] nebulizer 00 times Medical solution daily as Branch needed for Wheezing or Shortness of Breath. clotrimazol 2020-09 Yes [id number] Apply to [facility] e-betametha -09 area(s) 2 ity of sone cream 00:00: (two) [place] 00 times Medical daily. Branch cyclobenzap 2020-09 Yes [id number] TAKE 1 [facility] rine 5 mg 1-09 TABLET BY ity o f tablet 00:00: MOUTH [place] 00 EVERY 8 Medical HOURS Branch NEEDED econazole 2020-09 Yes [id number] Apply to [facility] nitrate 1 % -09 area(s) 2 ity of cream 00:00: (two) [place] 00 times Medical daily. Branch albuterol 2020-09 Yes [id number] 2{puff} Inhale 2 [facility] (PROAIR 1-09 Puffs ity of HFA) 90 00:00: every 6 [place] mcg/actuati 00 (six) Medical on inhaler hours as Branc h needed for Wheezing or Shortness of Breath. triamcinolo 2020-09 Yes [id number] Apply to [facility] ne 0.025 % 10-04 area(s) 3 ity of ointment 00:00: (three) [place] 00 times Medical daily. For Branch itching cyanocobala 2020-09 Yes [id number] 1000ug 1 mL by [facility] min 1,000 09 Intramuscu ity of mcg/mL 00:00: lar route [place] injection 00 every 2 Medical (two) Branch weeks. levothyroxi 2020-09 Yes [id number] 50ug Take 1 [facility] ne 50 mcg -09 tablet by ity o f tablet 00:00: mouth [place] 00 every Medical morning. Branch fluticasone 2020-09 Yes [id number] 2{puff} Inhale 2 [facility] propionate -09 Puffs ity of (FLOVENT 00:00: every 12 [place] HFA) 110 00 (twelve) Medical mcg/actuati hours. Branch on inhaler Rinse mouth after each use. levalbutero 2020-09 Yes [id number] .63mg Inhale [facility] l 0.63 mg/3 -09 0.63 mg 3 ity of mL 00:00: (three) [place] nebulizer 00 times Medical solution daily as Branch needed for Wheezing or Shortness of Breath. clotrimazol 2020-09 Yes [id number] Apply to [facility] e-betametha 10-04 area(s) 2 ity of sone cream 00:00: (two) [place] 00 times Medical daily. Branch cyclobenzap 2020-09 Yes [id number] TAKE 1 [facility] rine 5 mg -09 TABLET BY ity o f tablet 00:00: MOUTH [place] 00 EVERY 8 Medical HOURS Branch NEEDED econazole 2020-09 Yes [id number] Apply to [facility] nitrate 1 % -09 area(s) 2 ity of cream 00:00: (two) [place] 00 times Medical daily. Branch albuterol 2020-09 Yes [id number] 2{puff} Inhale 2 [facility] (PROAIR 1-09 Puffs ity of HFA) 90 00:00: every 6 [place] mcg/actuati 00 (six) Medical on inhaler hours as Branc h needed for Wheezing or Shortness of Breath. triamcinolo 2020-09 Yes [id number] Apply to [facility] ne 0.025 % 1-09 area(s) 3 ity of ointment 00:00: (three) [place] 00 times Medical daily. For Branch itching cyanocobala 2020-09 Yes [id number] 1000ug 1 mL by [facility] min 1,000 -09 Intramuscu ity of mcg/mL 00:00: lar route [place] injection 00 every 2 Medical (two) Branch weeks. levothyroxi 2020-09 Yes [id number] 50ug Take 1 [facility] ne 50 mcg 1-09 tablet by ity o f tablet 00:00: mouth [place] 00 every Medical morning. Branch fluticasone 2020-09 Yes [id number] 2{puff} Inhale 2 [facility] propionate 1-09 Puffs ity of (FLOVENT 00:00: every 12 [place] HFA) 110 00 (twelve) Medical mcg/actuati hours. Branch on inhaler Rinse mouth after each use. levalbutero 2020-09 Yes [id number] .63mg Inhale [facility] l 0.63 mg/3 1-09 0.63 mg 3 ity of mL 00:00: (three) [place] nebulizer 00 times Medical solution daily as Branch needed for Wheezing or Shortness of Breath. clotrimazol 2020-09 Yes [id number] Apply to [facility] e-betametha 09 area(s) 2 ity of sone cream 00:00: (two) [place] 00 times Medical daily. Branch cyclobenzap 2020-09 Yes [id number] TAKE 1 [facility] rine 5 mg -09 TABLET BY ity o f tablet 00:00: MOUTH [place] 00 EVERY 8 Medical HOURS Branch NEEDED econazole 2020-09 Yes [id number] Apply to [facility] nitrate 1 % -09 area(s) 2 ity of cream 00:00: (two) [place] 00 times Medical daily. Branch albuterol 2020-09 Yes [id number] 2{puff} Inhale 2 [facility] (PROAIR 1-09 Puffs ity of HFA) 90 00:00: every 6 [place] mcg/actuati 00 (six) Medical on inhaler hours as Branc h needed for Wheezing or Shortness of Breath. triamcinolo 2020-09 Yes [id number] Apply to [facility] ne 0.025 % -09 area(s) 3 ity of ointment 00:00: (three) [place] 00 times Medical daily. For Branch itching cyanocobala 2020-09 Yes [id number] 1000ug 1 mL by [facility] min 1,000 -09 Intramuscu ity of mcg/mL 00:00: lar route [place] injection 00 every 2 Medical (two) Branch weeks. levothyroxi 2020-09 Yes [id number] 50ug Take 1 [facility] ne 50 mcg -09 tablet by ity o f tablet 00:00: mouth [place] 00 every Medical morning. Branch fluticasone 2020-09 Yes [id number] 2{puff} Inhale 2 [facility] propionate -09 Puffs ity of (FLOVENT 00:00: every 12 [place] HFA) 110 00 (twelve) Medical mcg/actuati hours. Branch on inhaler Rinse mouth after each use. levalbutero 2020-09 Yes [id number] .63mg Inhale [facility] l 0.63 mg/3 -09 0.63 mg 3 ity of mL 00:00: (three) [place] nebulizer 00 times Medical solution daily as Branch needed for Wheezing or Shortness of Breath. clotrimazol 2020-09 Yes [id number] Apply to [facility] e-betametha 10-04 area(s) 2 ity of sone cream 00:00: (two) [place] 00 times Medical daily. Branch cyclobenzap 2020-09 Yes [id number] TAKE 1 [facility] rine 5 mg -09 TABLET BY ity o f tablet 00:00: MOUTH [place] 00 EVERY 8 Medical HOURS Branch NEEDED econazole 2020-09 Yes [id number] Apply to [facility] nitrate 1 % 09 area(s) 2 ity of cream 00:00: (two) [place] 00 times Medical daily. Branch albuterol 2020-09 Yes [id number] 2{puff} Inhale 2 [facility] (PROAIR 1-09 Puffs ity of HFA) 90 00:00: every 6 [place] mcg/actuati 00 (six) Medical on inhaler hours as Branc h needed for Wheezing or Shortness of Breath. triamcinolo 2020-09 Yes [id number] Apply to [facility] ne 0.025 % -09 area(s) 3 ity of ointment 00:00: (three) [place] 00 times Medical daily. For Branch itching cyanocobala 2020-09 Yes [id number] 1000ug 1 mL by [facility] min 1,000 -09 Intramuscu ity of mcg/mL 00:00: lar route [place] injection 00 every 2 Medical (two) Branch weeks. levothyroxi 2020-09 Yes [id number] 50ug Take 1 [facility] ne 50 mcg -09 tablet by ity o f tablet 00:00: mouth [place] 00 every Medical morning. Branch fluticasone 2020-09 Yes [id number] 2{puff} Inhale 2 [facility] propionate 1-09 Puffs ity of (FLOVENT 00:00: every 12 [place] HFA) 110 00 (twelve) Medical mcg/actuati hours. Branch on inhaler Rinse mouth after each use. levalbutero 2020-09 Yes [id number] .63mg Inhale [facility] l 0.63 mg/3 -09 0.63 mg 3 ity of mL 00:00: (three) [place] nebulizer 00 times Medical solution daily as Branch needed for Wheezing or Shortness of Breath. clotrimazol 2020-09 Yes [id number] Apply to [facility] e-betametha 10-04 area(s) 2 ity of sone cream 00:00: (two) [place] 00 times Medical daily. Branch cyclobenzap 2020-09 Yes [id number] TAKE 1 [facility] rine 5 mg -09 TABLET BY ity o f tablet 00:00: MOUTH [place] 00 EVERY 8 Medical HOURS Branch NEEDED econazole 2020-09 Yes [id number] Apply to [facility] nitrate 1 % 09 area(s) 2 ity of cream 00:00: (two) [place] 00 times Medical daily. Branch albuterol 2020-09 Yes [id number] 2{puff} Inhale 2 [facility] (PROAIR 1-09 Puffs ity of HFA) 90 00:00: every 6 [place] mcg/actuati 00 (six) Medical on inhaler hours as Branc h needed for Wheezing or Shortness of Breath. triamcinolo 2020-09 Yes [id number] Apply to [facility] ne 0.025 % -09 area(s) 3 ity of ointment 00:00: (three) [place] 00 times Medical daily. For Branch itching cyanocobala 2020-09 Yes [id number] 1000ug 1 mL by [facility] min 1,000 1-09 Intramuscu ity of mcg/mL 00:00: lar route [place] injection 00 every 2 Medical (two) Branch weeks. levothyroxi 2020-09 Yes [id number] 50ug Take 1 [facility] ne 50 mcg 1-09 tablet by ity o f tablet 00:00: mouth [place] 00 every Medical morning. Branch fluticasone 2020-09 Yes [id number] 2{puff} Inhale 2 [facility] propionate 1-09 Puffs ity of (FLOVENT 00:00: every 12 [place] HFA) 110 00 (twelve) Medical mcg/actuati hours. Branch on inhaler Rinse mouth after each use. levalbutero 2020-09 Yes [id number] .63mg Inhale [facility] l 0.63 mg/3 1-09 0.63 mg 3 ity of mL 00:00: (three) [place] nebulizer 00 times Medical solution daily as Branch needed for Wheezing or Shortness of Breath. clotrimazol 2020-09 Yes [id number] Apply to [facility] e-betametha 1-09 area(s) 2 ity of sone cream 00:00: (two) [place] 00 times Medical daily. Branch cyclobenzap 2020-09 Yes [id number] TAKE 1 [facility] rine 5 mg 1-09 TABLET BY ity o f tablet 00:00: MOUTH [place] 00 EVERY 8 Medical HOURS Branch NEEDED econazole 2020-09 Yes [id number] Apply to [facility] nitrate 1 % 1-09 area(s) 2 ity of cream 00:00: (two) [place] 00 times Medical daily. Branch albuterol 2020-09 Yes [id number] 2{puff} Inhale 2 [facility] (PROAIR 1-09 Puffs ity of HFA) 90 00:00: every 6 [place] mcg/actuati 00 (six) Medical on inhaler hours as Branc h needed for Wheezing or Shortness of Breath. triamcinolo 2020-09 Yes [id number] Apply to [facility] ne 0.025 % 1-09 area(s) 3 ity of ointment 00:00: (three) [place] 00 times Medical daily. For Branch itching cyanocobala 2020-09 Yes [id number] 1000ug 1 mL by [facility] min 1,000 1-09 Intramuscu ity of mcg/mL 00:00: lar route [place] injection 00 every 2 Medical (two) Branch weeks. levothyroxi 2020-09 Yes [id number] 50ug Take 1 [facility] ne 50 mcg 1-09 tablet by ity o f tablet 00:00: mouth [place] 00 every Medical morning. Branch fluticasone 2020-09 Yes [id number] 2{puff} Inhale 2 [facility] propionate 1-09 Puffs ity of (FLOVENT 00:00: every 12 [place] HFA) 110 00 (twelve) Medical mcg/actuati hours. Branch on inhaler Rinse mouth after each use. levalbutero 2020-09 Yes [id number] .63mg Inhale [facility] l 0.63 mg/3 1-09 0.63 mg 3 ity of mL 00:00: (three) [place] nebulizer 00 times Medical solution daily as Branch needed for Wheezing or Shortness of Breath. clotrimazol 2020-09 Yes [id number] Apply to [facility] e-betametha -09 area(s) 2 ity of sone cream 00:00: (two) [place] 00 times Medical daily. Branch cyclobenzap 2020-09 Yes [id number] TAKE 1 [facility] rine 5 mg -09 TABLET BY ity o f tablet 00:00: MOUTH [place] 00 EVERY 8 Medical HOURS Branch NEEDED econazole 2020-09 Yes [id number] Apply to [facility] nitrate 1 % -09 area(s) 2 ity of cream 00:00: (two) [place] 00 times Medical daily. Branch albuterol 2020-09 Yes [id number] 2{puff} Inhale 2 [facility] (PROAIR 1-09 Puffs ity of HFA) 90 00:00: every 6 [place] mcg/actuati 00 (six) Medical on inhaler hours as Branc h needed for Wheezing or Shortness of Breath. triamcinolo 2020-09 Yes [id number] Apply to [facility] ne 0.025 % 1-09 area(s) 3 ity of ointment 00:00: (three) [place] 00 times Medical daily. For Branch itching cyanocobala 2020-09 Yes [id number] 1000ug 1 mL by [facility] min 1,000 1-09 Intramuscu ity of mcg/mL 00:00: lar route [place] injection 00 every 2 Medical (two) Branch weeks. levothyroxi 2020-09 Yes [id number] 50ug Take 1 [facility] ne 50 mcg 1-09 tablet by ity o f tablet 00:00: mouth [place] 00 every Medical morning. Branch fluticasone 2020-09 Yes [id number] 2{puff} Inhale 2 [facility] propionate 1-09 Puffs ity of (FLOVENT 00:00: every 12 [place] HFA) 110 00 (twelve) Medical mcg/actuati hours. Branch on inhaler Rinse mouth after each use. levalbutero 2020-09 Yes [id number] .63mg Inhale [facility] l 0.63 mg/3 1-09 0.63 mg 3 ity of mL 00:00: (three) [place] nebulizer 00 times Medical solution daily as Branch needed for Wheezing or Shortness of Breath. clotrimazol 2020-09 Yes [id number] Apply to [facility] e-betametha -09 area(s) 2 ity of sone cream 00:00: (two) [place] 00 times Medical daily. Branch cyclobenzap 2020-09 Yes [id number] TAKE 1 [facility] rine 5 mg 1-09 TABLET BY ity o f tablet 00:00: MOUTH [place] 00 EVERY 8 Medical HOURS Branch NEEDED econazole 2020-09 Yes [id number] Apply to [facility] nitrate 1 % -09 area(s) 2 ity of cream 00:00: (two) [place] 00 times Medical daily. Branch albuterol 2020-09 Yes [id number] 2{puff} Inhale 2 [facility] (PROAIR 1-09 Puffs ity of HFA) 90 00:00: every 6 [place] mcg/actuati 00 (six) Medical on inhaler hours as Branc h needed for Wheezing or Shortness of Breath. triamcinolo 2020-09 Yes [id number] Apply to [facility] ne 0.025 % 1-09 area(s) 3 ity of ointment 00:00: (three) [place] 00 times Medical daily. For Branch itching cyanocobala 2020-09 Yes [id number] 1000ug 1 mL by [facility] min 1,000 1-09 Intramuscu ity of mcg/mL 00:00: lar route [place] injection 00 every 2 Medical (two) Branch weeks. levothyroxi 2020-09 Yes [id number] 50ug Take 1 [facility] ne 50 mcg 1-09 tablet by ity o f tablet 00:00: mouth [place] 00 every Medical morning. Branch fluticasone 2020-09 Yes [id number] 2{puff} Inhale 2 [facility] propionate 1-09 Puffs ity of (FLOVENT 00:00: every 12 [place] HFA) 110 00 (twelve) Medical mcg/actuati hours. Branch on inhaler Rinse mouth after each use. levalbutero 2020-09 Yes [id number] .63mg Inhale [facility] l 0.63 mg/3 1-09 0.63 mg 3 ity of mL 00:00: (three) [place] nebulizer 00 times Medical solution daily as Branch needed for Wheezing or Shortness of Breath. clotrimazol 2020-09 Yes [id number] Apply to [facility] e-betametha 1-09 area(s) 2 ity of sone cream 00:00: (two) [place] 00 times Medical daily. Branch cyclobenzap 2020-09 Yes [id number] TAKE 1 [facility] rine 5 mg 1-09 TABLET BY ity o f tablet 00:00: MOUTH [place] 00 EVERY 8 Medical HOURS Branch NEEDED econazole 2020-09 Yes [id number] Apply to [facility] nitrate 1 % -09 area(s) 2 ity of cream 00:00: (two) [place] 00 times Medical daily. Branch albuterol 2020-09 Yes [id number] 2{puff} Inhale 2 [facility] (PROAIR 1-09 Puffs ity of HFA) 90 00:00: every 6 [place] mcg/actuati 00 (six) Medical on inhaler hours as Branc h needed for Wheezing or Shortness of Breath. triamcinolo 2020-09 Yes [id number] Apply to [facility] ne 0.025 % 1-09 area(s) 3 ity of ointment 00:00: (three) [place] 00 times Medical daily. For Branch itching cyanocobala 2020-09 Yes [id number] 1000ug 1 mL by [facility] min 1,000 1-09 Intramuscu ity of mcg/mL 00:00: lar route [place] injection 00 every 2 Medical (two) Branch weeks. levothyroxi 2020-09 Yes [id number] 50ug Take 1 [facility] ne 50 mcg 1-09 tablet by ity o f tablet 00:00: mouth [place] 00 every Medical morning. Branch fluticasone 2020-09 Yes [id number] 2{puff} Inhale 2 [facility] propionate 1-09 Puffs ity of (FLOVENT 00:00: every 12 [place] HFA) 110 00 (twelve) Medical mcg/actuati hours. Branch on inhaler Rinse mouth after each use. levalbutero 2020-09 Yes [id number] .63mg Inhale [facility] l 0.63 mg/3 1-09 0.63 mg 3 ity of mL 00:00: (three) [place] nebulizer 00 times Medical solution daily as Branch needed for Wheezing or Shortness of Breath. clotrimazol 2020-09 Yes [id number] Apply to [facility] e-betametha -09 area(s) 2 ity of sone cream 00:00: (two) [place] 00 times Medical daily. Branch cyclobenzap 2020-09 Yes [id number] TAKE 1 [facility] rine 5 mg -09 TABLET BY ity o f tablet 00:00: MOUTH [place] 00 EVERY 8 Medical HOURS Branch NEEDED econazole 2020-09 Yes [id number] Apply to [facility] nitrate 1 % -09 area(s) 2 ity of cream 00:00: (two) [place] 00 times Medical daily. Branch albuterol 2020-09 Yes [id number] 2{puff} Inhale 2 [facility] (PROAIR 1-09 Puffs ity of HFA) 90 00:00: every 6 [place] mcg/actuati 00 (six) Medical on inhaler hours as Branc h needed for Wheezing or Shortness of Breath. triamcinolo 2020-09 Yes [id number] Apply to [facility] ne 0.025 % 1-09 area(s) 3 ity of ointment 00:00: (three) [place] 00 times Medical daily. For Branch itching cyanocobala 2020-09 Yes [id number] 1000ug 1 mL by [facility] min 1,000 1-09 Intramuscu ity of mcg/mL 00:00: lar route [place] injection 00 every 2 Medical (two) Branch weeks. levothyroxi 2020-09 Yes [id number] 50ug Take 1 [facility] ne 50 mcg 1-09 tablet by ity o f tablet 00:00: mouth [place] 00 every Medical morning. Branch fluticasone 2020-09 Yes [id number] 2{puff} Inhale 2 [facility] propionate 1-09 Puffs ity of (FLOVENT 00:00: every 12 [place] HFA) 110 00 (twelve) Medical mcg/actuati hours. Branch on inhaler Rinse mouth after each use. levalbutero 2020-09 Yes [id number] .63mg Inhale [facility] l 0.63 mg/3 1-09 0.63 mg 3 ity of mL 00:00: (three) [place] nebulizer 00 times Medical solution daily as Branch needed for Wheezing or Shortness of Breath. clotrimazol 2020-09 Yes [id number] Apply to [facility] e-betametha -09 area(s) 2 ity of sone cream 00:00: (two) [place] 00 times Medical daily. Branch cyclobenzap 2020-09 Yes [id number] TAKE 1 [facility] rine 5 mg 1-09 TABLET BY ity o f tablet 00:00: MOUTH [place] 00 EVERY 8 Medical HOURS Branch NEEDED econazole 2020-09 Yes [id number] Apply to [facility] nitrate 1 % -09 area(s) 2 ity of cream 00:00: (two) [place] 00 times Medical daily. Branch albuterol 2020-09 Yes [id number] 2{puff} Inhale 2 [facility] (PROAIR 1-09 Puffs ity of HFA) 90 00:00: every 6 [place] mcg/actuati 00 (six) Medical on inhaler hours as Branc h needed for Wheezing or Shortness of Breath. triamcinolo 2020-09 Yes [id number] Apply to [facility] ne 0.025 % 1-09 area(s) 3 ity of ointment 00:00: (three) [place] 00 times Medical daily. For Branch itching cyanocobala 2020-09 Yes [id number] 1000ug 1 mL by [facility] min 1,000 1-09 Intramuscu ity of mcg/mL 00:00: lar route [place] injection 00 every 2 Medical (two) Branch weeks. levothyroxi 2020-09 Yes [id number] 50ug Take 1 [facility] ne 50 mcg 1-09 tablet by ity o f tablet 00:00: mouth [place] 00 every Medical morning. Branch fluticasone 2020-09 Yes [id number] 2{puff} Inhale 2 [facility] propionate 1-09 Puffs ity of (FLOVENT 00:00: every 12 [place] HFA) 110 00 (twelve) Medical mcg/actuati hours. Branch on inhaler Rinse mouth after each use. levalbutero 2020-09 Yes [id number] .63mg Inhale [facility] l 0.63 mg/3 1-09 0.63 mg 3 ity of mL 00:00: (three) [place] nebulizer 00 times Medical solution daily as Branch needed for Wheezing or Shortness of Breath. clotrimazol 2020-09 Yes [id number] Apply to [facility] e-betametha 1-09 area(s) 2 ity of sone cream 00:00: (two) [place] 00 times Medical daily. Branch cyclobenzap 2020-09 Yes [id number] TAKE 1 [facility] rine 5 mg -09 TABLET BY ity o f tablet 00:00: MOUTH [place] 00 EVERY 8 Medical HOURS Branch NEEDED econazole 2020-09 Yes [id number] Apply to [facility] nitrate 1 % -09 area(s) 2 ity of cream 00:00: (two) [place] 00 times Medical daily. Branch albuterol 2020-09 Yes [id number] 2{puff} Inhale 2 [facility] (PROAIR 1-09 Puffs ity of HFA) 90 00:00: every 6 [place] mcg/actuati 00 (six) Medical on inhaler hours as Branc h needed for Wheezing or Shortness of Breath. triamcinolo 2020-09 Yes [id number] Apply to [facility] ne 0.025 % 1-09 area(s) 3 ity of ointment 00:00: (three) [place] 00 times Medical daily. For Branch itching cyanocobala 2020-09 Yes [id number] 1000ug 1 mL by [facility] min 1,000 1-09 Intramuscu ity of mcg/mL 00:00: lar route [place] injection 00 every 2 Medical (two) Branch weeks. levothyroxi 2020-09 Yes [id number] 50ug Take 1 [facility] ne 50 mcg 1-09 tablet by ity o f tablet 00:00: mouth [place] 00 every Medical morning. Branch fluticasone 2020-09 Yes [id number] 2{puff} Inhale 2 [facility] propionate 1-09 Puffs ity of (FLOVENT 00:00: every 12 [place] HFA) 110 00 (twelve) Medical mcg/actuati hours. Branch on inhaler Rinse mouth after each use. levalbutero 2020-09 Yes [id number] .63mg Inhale [facility] l 0.63 mg/3 1-09 0.63 mg 3 ity of mL 00:00: (three) [place] nebulizer 00 times Medical solution daily as Branch needed for Wheezing or Shortness of Breath. clotrimazol 2020-09 Yes [id number] Apply to [facility] e-betametha -09 area(s) 2 ity of sone cream 00:00: (two) [place] 00 times Medical daily. Branch cyclobenzap 2020-09 Yes [id number] TAKE 1 [facility] rine 5 mg -09 TABLET BY ity o f tablet 00:00: MOUTH [place] 00 EVERY 8 Medical HOURS Branch NEEDED econazole 2020-09 Yes [id number] Apply to [facility] nitrate 1 % 10-04 area(s) 2 ity of cream 00:00: (two) [place] 00 times Medical daily. Branch albuterol 2020-09 Yes [id number] 2{puff} Inhale 2 [facility] (PROAIR 1-09 Puffs ity of HFA) 90 00:00: every 6 [place] mcg/actuati 00 (six) Medical on inhaler hours as Branc h needed for Wheezing or Shortness of Breath. triamcinolo 2020-09 Yes [id number] Apply to [facility] ne 0.025 % 10-04 area(s) 3 ity of ointment 00:00: (three) [place] 00 times Medical daily. For Branch itching cyanocobala 2020-09 Yes [id number] 1000ug 1 mL by [facility] min 1,000 1-09 Intramuscu ity of mcg/mL 00:00: lar route [place] injection 00 every 2 Medical (two) Branch weeks. levothyroxi 2020-09 Yes [id number] 50ug Take 1 [facility] ne 50 mcg 1-09 tablet by ity o f tablet 00:00: mouth [place] 00 every Medical morning. Branch fluticasone 2020-09 Yes [id number] 2{puff} Inhale 2 [facility] propionate 1-09 Puffs ity of (FLOVENT 00:00: every 12 [place] HFA) 110 00 (twelve) Medical mcg/actuati hours. Branch on inhaler Rinse mouth after each use. levalbutero 2020-09 Yes [id number] .63mg Inhale [facility] l 0.63 mg/3 1-09 0.63 mg 3 ity of mL 00:00: (three) [place] nebulizer 00 times Medical solution daily as Branch needed for Wheezing or Shortness of Breath. clotrimazol 2020-09 Yes [id number] Apply to [facility] e-betametha 09 area(s) 2 [facility] of sone cream 00:00: (two) [place] 00 times Medical daily. Branch cyclobenzap 2020-09 Yes [id number] TAKE 1 [facility] rine 5 mg 09 TABLET BY ity o f tablet 00:00: MOUTH [place] 00 EVERY 8 Medical HOURS Branch NEEDED econazole 2020-09 Yes [id number] Apply to [facility] nitrate 1 % 10-04 area(s) 2 ity of cream 00:00: (two) [place] 00 times Medical daily. Branch albuterol 2020-09 Yes [id number] 2{puff} Inhale 2 [facility] (PROAIR 1-09 Puffs ity of HFA) 90 00:00: every 6 [place] mcg/actuati 00 (six) Medical on inhaler hours as Branc h needed for Wheezing or Shortness of Breath. triamcinolo 2020-09 Yes [id number] Apply to [facility] ne 0.025 % 10-04 area(s) 3 ity of ointment 00:00: (three) [place] 00 times Medical daily. For Branch itching cyanocobala 2020-09 Yes [id number] 1000ug 1 mL by [facility] min 1,000 -09 Intramuscu ity of mcg/mL 00:00: lar route [place] injection 00 every 2 Medical (two) Branch weeks. levothyroxi 2020-09 Yes [id number] 50ug Take 1 [facility] ne 50 mcg -09 tablet by ity o f tablet 00:00: mouth [place] 00 every Medical morning. Branch fluticasone 2020-09 Yes [id number] 2{puff} Inhale 2 [facility] propionate 1-09 Puffs ity of (FLOVENT 00:00: every 12 [place] HFA) 110 00 (twelve) Medical mcg/actuati hours. Branch on inhaler Rinse mouth after each use. levalbutero 2020-09 Yes [id number] .63mg Inhale [facility] l 0.63 mg/3 1-09 0.63 mg 3 ity of mL 00:00: (three) [place] nebulizer 00 times Medical solution daily as Branch needed for Wheezing or Shortness of Breath. clotrimazol 2020-09 Yes [id number] Apply to [facility] e-betametha 09 area(s) 2 ity of sone cream 00:00: (two) [place] 00 times Medical daily. Branch cyclobenzap 2020-09 Yes [id number] TAKE 1 [facility] rine 5 mg 10-04 TABLET BY it[facility] o f tablet 00:00: MOUTH [place] 00 EVERY 8 Medical HOURS Branch NEEDED econazole 2020-09 Yes [id number] Apply to [facility] nitrate 1 % 10-04 area(s) 2 ity of cream 00:00: (two) [place] 00 times Medical daily. Branch albuterol 2020-09 Yes [id number] 2{puff} Inhale 2 [facility] (PROAIR 1-09 Puffs ity of HFA) 90 00:00: every 6 [place] mcg/actuati 00 (six) Medical on inhaler hours as Branc h needed for Wheezing or Shortness of Breath. triamcinolo 2020-09 Yes [id number] Apply to [facility] ne 0.025 % 10-04 area(s) 3 ity of ointment 00:00: (three) [place] 00 times Medical daily. For Branch itching cyanocobala 2020-09 Yes [id number] 1000ug 1 mL by [facility] min 1,000 -09 Intramuscu ity of mcg/mL 00:00: lar route [place] injection 00 every 2 Medical (two) Branch weeks. levothyroxi 2020-09 Yes [id number] 50ug Take 1 [facility] ne 50 mcg -09 tablet by ity o f tablet 00:00: mouth [place] 00 every Medical morning. Branch fluticasone 2020-09 Yes [id number] 2{puff} Inhale 2 [facility] propionate 1-09 Puffs ity of (FLOVENT 00:00: every 12 [place] HFA) 110 00 (twelve) Medical mcg/actuati hours. Branch on inhaler Rinse mouth after each use. levalbutero 2020-09 Yes [id number] .63mg Inhale [facility] l 0.63 mg/3 1-09 0.63 mg 3 ity of mL 00:00: (three) [place] nebulizer 00 times Medical solution daily as Branch needed for Wheezing or Shortness of Breath. clotrimazol 2020-09 Yes [id number] Apply to [facility] e-betametha -09 area(s) 2 ity of sone cream 00:00: (two) [place] 00 times Medical daily. Branch cyclobenzap 2020-09 Yes [id number] TAKE 1 [facility] rine 5 mg 1-09 TABLET BY it[facility] o f tablet 00:00: MOUTH [place] 00 EVERY 8 Medical HOURS Branch NEEDED econazole 2020-09 Yes [id number] Apply to [facility] nitrate 1 % -09 area(s) 2 ity of cream 00:00: (two) [place] 00 times Medical daily. Branch albuterol 2020-09 Yes [id number] 2{puff} Inhale 2 [facility] (PROAIR 1-09 Puffs ity of HFA) 90 00:00: every 6 [place] mcg/actuati 00 (six) Medical on inhaler hours as Branc h needed for Wheezing or Shortness of Breath. triamcinolo 2020-09 Yes [id number] Apply to [facility] ne 0.025 % 09 area(s) 3 ity of ointment 00:00: (three) [place] 00 times Medical daily. For Branch itching cyanocobala 2020-09 Yes [id number] 1000ug 1 mL by [facility] min 1,000 1-09 Intramuscu ity of mcg/mL 00:00: lar route [place] injection 00 every 2 Medical (two) Branch weeks. levothyroxi 2020-09 Yes [id number] 50ug Take 1 [facility] ne 50 mcg 1-09 tablet by ity o f tablet 00:00: mouth [place] 00 every Medical morning. Branch fluticasone 2020-09 Yes [id number] 2{puff} Inhale 2 [facility] propionate 1-09 Puffs ity of (FLOVENT 00:00: every 12 [place] HFA) 110 00 (twelve) Medical mcg/actuati hours. Branch on inhaler Rinse mouth after each use. levalbutero 2020-09 Yes [id number] .63mg Inhale [facility] l 0.63 mg/3 1-09 0.63 mg 3 ity of mL 00:00: (three) [place] nebulizer 00 times Medical solution daily as Branch needed for Wheezing or Shortness of Breath. clotrimazol 2020-09 Yes [id number] Apply to [facility] e-betametha 10-04 area(s) 2 ity of sone cream 00:00: (two) [place] 00 times Medical daily. Branch cyclobenzap 2020-09 Yes [id number] TAKE 1 [facility] rine 5 mg -09 TABLET BY ity o f tablet 00:00: MOUTH [place] 00 EVERY 8 Medical HOURS Branch NEEDED econazole 2020-09 Yes [id number] Apply to [facility] nitrate 1 % 10-04 area(s) 2 ity of cream 00:00: (two) [place] 00 times Medical daily. Branch albuterol 2020-09 Yes [id number] 2{puff} Inhale 2 [facility] (PROAIR 1-09 Puffs ity of HFA) 90 00:00: every 6 [place] mcg/actuati 00 (six) Medical on inhaler hours as Branc h needed for Wheezing or Shortness of Breath. triamcinolo 2020-09 Yes [id number] Apply to [facility] ne 0.025 % 10-04 area(s) 3 ity of ointment 00:00: (three) [place] 00 times Medical daily. For Branch itching cyanocobala 2020-09 Yes [id number] 1000ug 1 mL by [facility] min 1,000 -09 Intramuscu ity of mcg/mL 00:00: lar route [place] injection 00 every 2 Medical (two) Branch weeks. levothyroxi 2020-09 Yes [id number] 50ug Take 1 [facility] ne 50 mcg 10-04 tablet by ity o f tablet 00:00: mouth [place] 00 every Medical morning. Branch fluticasone 2020-09 Yes [id number] 2{puff} Inhale 2 [facility] propionate 1-09 Puffs ity of (FLOVENT 00:00: every 12 [place] HFA) 110 00 (twelve) Medical mcg/actuati hours. Branch on inhaler Rinse mouth after each use. levalbutero 2020-09 Yes [id number] .63mg Inhale [facility] l 0.63 mg/3 1-09 0.63 mg 3 ity of mL 00:00: (three) [place] nebulizer 00 times Medical solution daily as Branch needed for Wheezing or Shortness of Breath. clotrimazol 2020-09 Yes [id number] Apply to [facility] e-betametha 09 area(s) 2 ity of sone cream 00:00: (two) [place] 00 times Medical daily. Branch cyclobenzap 2020-09 Yes [id number] TAKE 1 [facility] rine 5 mg -09 TABLET BY ity o f tablet 00:00: MOUTH [place] 00 EVERY 8 Medical HOURS Branch NEEDED econazole 2020-09 Yes [id number] Apply to [facility] nitrate 1 % 09 area(s) 2 ity of cream 00:00: (two) [place] 00 times Medical daily. Branch albuterol 2020-09 Yes [id number] 2{puff} Inhale 2 [facility] (PROAIR 1-09 Puffs ity of HFA) 90 00:00: every 6 [place] mcg/actuati 00 (six) Medical on inhaler hours as Branc h needed for Wheezing or Shortness of Breath. triamcinolo 2020-09 Yes [id number] Apply to [facility] ne 0.025 % 09 area(s) 3 ity of ointment 00:00: (three) [place] 00 times Medical daily. For Branch itching cyanocobala 2020-09 Yes [id number] 1000ug 1 mL by [facility] min 1,000 -09 Intramuscu ity of mcg/mL 00:00: lar route [place] injection 00 every 2 Medical (two) Branch weeks. levothyroxi 2020-09 Yes [id number] 50ug Take 1 [facility] ne 50 mcg 10-04 tablet by ity o f tablet 00:00: mouth [place] 00 every Medical morning. Branch fluticasone 2020-09 Yes [id number] 2{puff} Inhale 2 [facility] propionate 1-09 Puffs ity of (FLOVENT 00:00: every 12 [place] HFA) 110 00 (twelve) Medical mcg/actuati hours. Branch on inhaler Rinse mouth after each use. levalbutero 2020-09 Yes [id number] .63mg Inhale [facility] l 0.63 mg/3 1-09 0.63 mg 3 ity of mL 00:00: (three) [place] nebulizer 00 times Medical solution daily as Branch needed for Wheezing or Shortness of Breath. clotrimazol 2020-09 Yes [id number] Apply to [facility] e-betametha -09 area(s) 2 ity of sone cream 00:00: (two) [place] 00 times Medical daily. Branch cyclobenzap 2020-09 Yes [id number] TAKE 1 [facility] rine 5 mg -09 TABLET BY ity o f tablet 00:00: MOUTH [place] 00 EVERY 8 Medical HOURS Branch NEEDED econazole 2020-09 Yes [id number] Apply to [facility] nitrate 1 % 09 area(s) 2 ity of cream 00:00: (two) [place] 00 times Medical daily. Branch albuterol 2020-09 Yes [id number] 2{puff} Inhale 2 [facility] (PROAIR 1-09 Puffs ity of HFA) 90 00:00: every 6 [place] mcg/actuati 00 (six) Medical on inhaler hours as Branc h needed for Wheezing or Shortness of Breath. triamcinolo 2020-09 Yes [id number] Apply to [facility] ne 0.025 % 09 area(s) 3 ity of ointment 00:00: (three) [place] 00 times Medical daily. For Branch itching cyanocobala 2020-09 Yes [id number] 1000ug 1 mL by [facility] min 1,000 1-09 Intramuscu ity of mcg/mL 00:00: lar route [place] injection 00 every 2 Medical (two) Branch weeks. levothyroxi 2020-09 Yes [id number] 50ug Take 1 [facility] ne 50 mcg -09 tablet by ity o f tablet 00:00: mouth [place] 00 every Medical morning. Branch fluticasone 2020-09 Yes [id number] 2{puff} Inhale 2 [facility] propionate 1-09 Puffs ity of (FLOVENT 00:00: every 12 [place] HFA) 110 00 (twelve) Medical mcg/actuati hours. Branch on inhaler Rinse mouth after each use. levalbutero 2020-09 Yes [id number] .63mg Inhale [facility] l 0.63 mg/3 1-09 0.63 mg 3 ity of mL 00:00: (three) [place] nebulizer 00 times Medical solution daily as Branch needed for Wheezing or Shortness of Breath. clotrimazol 2020-09 Yes [id number] Apply to [facility] e-betametha 1-09 area(s) 2 ity of sone cream 00:00: (two) [place] 00 times Medical daily. Branch cyclobenzap 2020-09 Yes [id number] TAKE 1 [facility] rine 5 mg -09 TABLET BY ity o f tablet 00:00: MOUTH [place] 00 EVERY 8 Medical HOURS Branch NEEDED econazole 2020-09 Yes [id number] Apply to [facility] nitrate 1 % 10-04 area(s) 2 ity of cream 00:00: (two) [place] 00 times Medical daily. Branch albuterol 2020-09 Yes [id number] 2{puff} Inhale 2 [facility] (PROAIR 1-09 Puffs ity of HFA) 90 00:00: every 6 [place] mcg/actuati 00 (six) Medical on inhaler hours as Branc h needed for Wheezing or Shortness of Breath. triamcinolo 2020-09 Yes [id number] Apply to [facility] ne 0.025 % 10-04 area(s) 3 ity of ointment 00:00: (three) [place] 00 times Medical daily. For Branch itching cyanocobala 2020-09 Yes [id number] 1000ug 1 mL by [facility] min 1,000 -09 Intramuscu ity of mcg/mL 00:00: lar route [place] injection 00 every 2 Medical (two) Branch weeks. levothyroxi 2020-09 Yes [id number] 50ug Take 1 [facility] ne 50 mcg 09 tablet by ity o f tablet 00:00: mouth [place] 00 every Medical morning. Branch fluticasone 2020-09 Yes [id number] 2{puff} Inhale 2 [facility] propionate 1-09 Puffs ity of (FLOVENT 00:00: every 12 [place] HFA) 110 00 (twelve) Medical mcg/actuati hours. Branch on inhaler Rinse mouth after each use. levalbutero 2020-09 Yes [id number] .63mg Inhale [facility] l 0.63 mg/3 1-09 0.63 mg 3 ity of mL 00:00: (three) [place] nebulizer 00 times Medical solution daily as Branch needed for Wheezing or Shortness of Breath. clotrimazol 2020-09 Yes [id number] Apply to [facility] e-betametha 10-04 area(s) 2 ity of sone cream 00:00: (two) [place] 00 times Medical daily. Branch cyclobenzap 2020-09 Yes [id number] TAKE 1 [facility] rine 5 mg 1-09 TABLET BY ity o f tablet 00:00: MOUTH [place] 00 EVERY 8 Medical HOURS Branch NEEDED econazole 2020-09 Yes [id number] Apply to [facility] nitrate 1 % 09 area(s) 2 ity of cream 00:00: (two) [place] 00 times Medical daily. Branch albuterol 2020-09 Yes [id number] 2{puff} Inhale 2 [facility] (PROAIR 1-09 Puffs ity of HFA) 90 00:00: every 6 [place] mcg/actuati 00 (six) Medical on inhaler hours as Branc h needed for Wheezing or Shortness of Breath. triamcinolo 2020-09 Yes [id number] Apply to [facility] ne 0.025 % 10-04 area(s) 3 ity of ointment 00:00: (three) [place] 00 times Medical daily. For Branch itching cyanocobala 2020-09 Yes [id number] 1000ug 1 mL by [facility] min 1,000 -09 Intramuscu ity of mcg/mL 00:00: lar route [place] injection 00 every 2 Medical (two) Branch weeks. levothyroxi 2020-09 Yes [id number] 50ug Take 1 [facility] ne 50 mcg -09 tablet by ity o f tablet 00:00: mouth [place] 00 every Medical morning. Branch fluticasone 2020-09 Yes [id number] 2{puff} Inhale 2 [facility] propionate 1-09 Puffs ity of (FLOVENT 00:00: every 12 [place] HFA) 110 00 (twelve) Medical mcg/actuati hours. Branch on inhaler Rinse mouth after each use. levalbutero 2020-09 Yes [id number] .63mg Inhale [facility] l 0.63 mg/3 1-09 0.63 mg 3 ity of mL 00:00: (three) [place] nebulizer 00 times Medical solution daily as Branch needed for Wheezing or Shortness of Breath. clotrimazol 2020-09 Yes [id number] Apply to [facility] e-betametha -09 area(s) 2 ity of sone cream 00:00: (two) [place] 00 times Medical daily. Branch cyclobenzap 2020-09 Yes [id number] TAKE 1 [facility] rine 5 mg 1-09 TABLET BY ity o f tablet 00:00: MOUTH [place] 00 EVERY 8 Medical HOURS Branch NEEDED econazole 2020-09 Yes [id number] Apply to [facility] nitrate 1 % 09 area(s) 2 ity of cream 00:00: (two) [place] 00 times Medical daily. Branch albuterol 2020-09 Yes [id number] 2{puff} Inhale 2 [facility] (PROAIR 1-09 Puffs ity of HFA) 90 00:00: every 6 [place] mcg/actuati 00 (six) Medical on inhaler hours as Branc h needed for Wheezing or Shortness of Breath. triamcinolo 2020-09 Yes [id number] Apply to [facility] ne 0.025 % 10-04 area(s) 3 ity of ointment 00:00: (three) [place] 00 times Medical daily. For Branch itching cyanocobala 2020-09 Yes [id number] 1000ug 1 mL by [facility] min 1,000 -09 Intramuscu ity of mcg/mL 00:00: lar route [place] injection 00 every 2 Medical (two) Branch weeks. levothyroxi 2020-09 Yes [id number] 50ug Take 1 [facility] ne 50 mcg -09 tablet by ity o f tablet 00:00: mouth [place] 00 every Medical morning. Branch fluticasone 2020-09 Yes [id number] 2{puff} Inhale 2 [facility] propionate 1-09 Puffs ity of (FLOVENT 00:00: every 12 [place] HFA) 110 00 (twelve) Medical mcg/actuati hours. Branch on inhaler Rinse mouth after each use. levalbutero 2020-09 Yes [id number] .63mg Inhale [facility] l 0.63 mg/3 1-09 0.63 mg 3 ity of mL 00:00: (three) [place] nebulizer 00 times Medical solution daily as Branch needed for Wheezing or Shortness of Breath. clotrimazol 2020-09 Yes [id number] Apply to [facility] e-betametha 09 area(s) 2 ity of sone cream 00:00: (two) [place] 00 times Medical daily. Branch cyclobenzap 2020-09 Yes [id number] TAKE 1 [facility] rine 5 mg 1-09 TABLET BY ity o f tablet 00:00: MOUTH [place] 00 EVERY 8 Medical HOURS Branch NEEDED econazole 2020-09 Yes [id number] Apply to [facility] nitrate 1 % 1-09 area(s) 2 ity of cream 00:00: (two) [place] 00 times Medical daily. Branch albuterol 2020-09 Yes [id number] 2{puff} Inhale 2 [facility] (PROAIR 1-09 Puffs ity of HFA) 90 00:00: every 6 [place] mcg/actuati 00 (six) Medical on inhaler hours as Branc h needed for Wheezing or Shortness of Breath. triamcinolo 2020-09 Yes [id number] Apply to [facility] ne 0.025 % 09 area(s) 3 ity of ointment 00:00: (three) [place] 00 times Medical daily. For Branch itching cyanocobala 2020-09 Yes [id number] 1000ug 1 mL by [facility] min 1,000 1-09 Intramuscu ity of mcg/mL 00:00: lar route [place] injection 00 every 2 Medical (two) Branch weeks. levothyroxi 2020-09 Yes [id number] 50ug Take 1 [facility] ne 50 mcg 1-09 tablet by ity o f tablet 00:00: mouth [place] 00 every Medical morning. Branch fluticasone 2020-09 Yes [id number] 2{puff} Inhale 2 [facility] propionate 1-09 Puffs ity of (FLOVENT 00:00: every 12 [place] HFA) 110 00 (twelve) Medical mcg/actuati hours. Branch on inhaler Rinse mouth after each use. levalbutero 2020-09 Yes [id number] .63mg Inhale [facility] l 0.63 mg/3 1-09 0.63 mg 3 ity of mL 00:00: (three) [place] nebulizer 00 times Medical solution daily as Branch needed for Wheezing or Shortness of Breath. clotrimazol 2020-09 Yes [id number] Apply to [facility] e-betametha -09 area(s) 2 ity of sone cream 00:00: (two) [place] 00 times Medical daily. Branch cyclobenzap 2020-09 Yes [id number] TAKE 1 [facility] rine 5 mg 1-09 TABLET BY ity o f tablet 00:00: MOUTH [place] 00 EVERY 8 Medical HOURS Branch NEEDED econazole 2020-09 Yes [id number] Apply to [facility] nitrate 1 % 10-04 area(s) 2 ity of cream 00:00: (two) [place] 00 times Medical daily. Branch albuterol 2020-09 Yes [id number] 2{puff} Inhale 2 [facility] (PROAIR 1-09 Puffs ity of HFA) 90 00:00: every 6 [place] mcg/actuati 00 (six) Medical on inhaler hours as Branc h needed for Wheezing or Shortness of Breath. triamcinolo 2020-09 Yes [id number] Apply to [facility] ne 0.025 % 10-04 area(s) 3 ity of ointment 00:00: (three) [place] 00 times Medical daily. For Branch itching cyanocobala 2020-09 Yes [id number] 1000ug 1 mL by [facility] min 1,000 10-04 Intramuscu ity of mcg/mL 00:00: lar route [place] injection 00 every 2 Medical (two) Branch weeks. fluticasone 2020-09 Yes [id number] 2{puff} Inhale 2 [facility] propionate -09 Puffs ity of (FLOVENT 00:00: every 12 [place] HFA) 110 00 (twelve) Medical mcg/actuati hours. Branch on inhaler Rinse mouth after each use. levalbutero 2020-09 Yes [id number] .63mg Inhale [facility] l 0.63 mg/3 -09 0.63 mg 3 ity of mL 00:00: (three) [place] nebulizer 00 times Medical solution daily as Branch needed for Wheezing or Shortness of Breath. clotrimazol 2020-09 Yes [id number] Apply to [facility] e-betametha 10-04 area(s) 2 ity of sone cream 00:00: (two) [place] 00 times Medical daily. Branch cyclobenzap 2020-09 Yes [id number] TAKE 1 [facility] rine 5 mg 10-04 TABLET BY ity o f tablet 00:00: MOUTH [place] 00 EVERY 8 Medical HOURS Branch NEEDED econazole 2020-09 Yes [id number] Apply to [facility] nitrate 1 % 10-04 area(s) 2 ity of cream 00:00: (two) [place] 00 times Medical daily. Branch albuterol 2020-09 Yes [id number] 2{puff} Inhale 2 [facility] (PROAIR 1-09 Puffs ity of HFA) 90 00:00: every 6 [place] mcg/actuati 00 (six) Medical on inhaler hours as Branc h needed for Wheezing or Shortness of Breath. triamcinolo 2020-09 Yes [id number] Apply to [facility] ne 0.025 % 10-04 area(s) 3 ity of ointment 00:00: (three) [place] 00 times Medical daily. For Branch itching cyanocobala 2020-09 Yes [id number] 1000ug 1 mL by [facility] min 1,000 09 Intramuscu ity of mcg/mL 00:00: lar route [place] injection 00 every 2 Medical (two) Branch weeks. fluticasone 2020-09 Yes [id number] 2{puff} Inhale 2 [facility] propionate -09 Puffs ity of (FLOVENT 00:00: every 12 [place] HFA) 110 00 (twelve) Medical mcg/actuati hours. Branch on inhaler Rinse mouth after each use. levalbutero 2020-09 Yes [id number] .63mg Inhale [facility] l 0.63 mg/3 -09 0.63 mg 3 ity of mL 00:00: (three) [place] nebulizer 00 times Medical solution daily as Branch needed for Wheezing or Shortness of Breath. clotrimazol 2020-09 Yes [id number] Apply to [facility] e-betametha 10-04 area(s) 2 ity of sone cream 00:00: (two) [place] 00 times Medical daily. Branch cyclobenzap 2020-09 Yes [id number] TAKE 1 [facility] rine 5 mg 10-04 TABLET BY ity o f tablet 00:00: MOUTH [place] 00 EVERY 8 Medical HOURS Branch NEEDED econazole 2020-09 Yes [id number] Apply to [facility] nitrate 1 % 10-04 area(s) 2 ity of cream 00:00: (two) [place] 00 times Medical daily. Branch albuterol 2020-09 Yes [id number] 2{puff} Inhale 2 [facility] (PROAIR 1-09 Puffs ity of HFA) 90 00:00: every 6 [place] mcg/actuati 00 (six) Medical on inhaler hours as Branc h needed for Wheezing or Shortness of Breath. triamcinolo 2020-09 Yes [id number] Apply to [facility] ne 0.025 % 1-09 area(s) 3 ity of ointment 00:00: (three) [place] 00 times Medical daily. For Branch itching cyanocobala 2020-09 Yes [id number] 1000ug 1 mL by [facility] min 1,000 1-09 Intramuscu ity of mcg/mL 00:00: lar route [place] injection 00 every 2 Medical (two) Branch weeks. levalbutero 2020-09 Yes [id number] .63mg Inhale [facility] l 0.63 mg/3 1-09 0.63 mg 3 ity of mL 00:00: (three) [place] nebulizer 00 times Medical solution daily as Branch needed for Wheezing or Shortness of Breath. cyclobenzap 2020-09 Yes [id number] TAKE 1 [facility] rine 5 mg 1-09 TABLET BY ity o f tablet 00:00: MOUTH [place] 00 EVERY 8 Medical HOURS Branch NEEDED albuterol 2020-09 Yes [id number] 2{puff} Inhale 2 [facility] (PROAIR 1-09 Puffs ity of HFA) 90 00:00: every 6 [place] mcg/actuati 00 (six) Medical on inhaler hours as Branc h needed for Wheezing or Shortness of Breath. cyanocobala 2020-09 Yes [id number] 1000ug 1 mL by [facility] min 1,000 1-09 Intramuscu ity of mcg/mL 00:00: lar route [place] injection 00 every 2 Medical (two) Branch weeks. levalbutero 2020-09 Yes [id number] .63mg Inhale [facility] l 0.63 mg/3 1-09 0.63 mg 3 ity of mL 00:00: (three) [place] nebulizer 00 times Medical solution daily as Branch needed for Wheezing or Shortness of Breath. cyclobenzap 2020-09 Yes [id number] TAKE 1 [facility] rine 5 mg 1-09 TABLET BY ity o f tablet 00:00: MOUTH [place] 00 EVERY 8 Medical HOURS Branch NEEDED albuterol 2020-09 Yes [id number] 2{puff} Inhale 2 [facility] (PROAIR 1-09 Puffs ity of HFA) 90 00:00: every 6 [place] mcg/actuati 00 (six) Medical on inhaler hours as Branc h needed for Wheezing or Shortness of Breath. cyanocobala 2020-09 Yes [id number] 1000ug 1 mL by [facility] min 1,000 1-09 Intramuscu ity of mcg/mL 00:00: lar route [place] injection 00 every 2 Medical (two) Branch weeks. levalbutero 2020-09 Yes [id number] .63mg Inhale [facility] l 0.63 mg/3 1-09 0.63 mg 3 ity of mL 00:00: (three) [place] nebulizer 00 times Medical solution daily as Branch needed for Wheezing or Shortness of Breath. cyclobenzap 2020-09 Yes [id number] TAKE 1 [facility] rine 5 mg 1-09 TABLET BY ity o f tablet 00:00: MOUTH [place] 00 EVERY 8 Medical HOURS Branch NEEDED albuterol 2020-09 Yes [id number] 2{puff} Inhale 2 [facility] (PROAIR 1-09 Puffs ity of HFA) 90 00:00: every 6 [place] mcg/actuati 00 (six) Medical on inhaler hours as Branc h needed for Wheezing or Shortness of Breath. cyanocobala 2020-09 Yes [id number] 1000ug 1 mL by [facility] min 1,000 1-09 Intramuscu ity of mcg/mL 00:00: lar route [place] injection 00 every 2 Medical (two) Branch weeks. levalbutero 2020-09 Yes [id number] .63mg Inhale [facility] l 0.63 mg/3 1-09 0.63 mg 3 ity of mL 00:00: (three) [place] nebulizer 00 times Medical solution daily as Branch needed for Wheezing or Shortness of Breath. cyclobenzap 2020-09 Yes [id number] TAKE 1 [facility] rine 5 mg 1-09 TABLET BY ity o f tablet 00:00: MOUTH [place] 00 EVERY 8 Medical HOURS Branch NEEDED albuterol 2020-09 Yes [id number] 2{puff} Inhale 2 [facility] (PROAIR 1-09 Puffs ity of HFA) 90 00:00: every 6 [place] mcg/actuati 00 (six) Medical on inhaler hours as Branc h needed for Wheezing or Shortness of Breath. cyanocobala 2020-09 Yes [id number] 1000ug 1 mL by [facility] min 1,000 1-09 Intramuscu ity of mcg/mL 00:00: lar route [place] injection 00 every 2 Medical (two) Branch weeks. levalbutero 2020-09 Yes [id number] .63mg Inhale [facility] l 0.63 mg/3 1-09 0.63 mg 3 ity of mL 00:00: (three) [place] nebulizer 00 times Medical solution daily as Branch needed for Wheezing or Shortness of Breath. cyclobenzap 2020-09 Yes [id number] TAKE 1 [facility] rine 5 mg 1-09 TABLET BY ity o f tablet 00:00: MOUTH [place] 00 EVERY 8 Medical HOURS Branch NEEDED albuterol 2020-09 Yes [id number] 2{puff} Inhale 2 [facility] (PROAIR 1-09 Puffs ity of HFA) 90 00:00: every 6 [place] mcg/actuati 00 (six) Medical on inhaler hours as Branc h needed for Wheezing or Shortness of Breath. cyanocobala 2020-09 Yes [id number] 1000ug 1 mL by [facility] min 1,000 1-09 Intramuscu ity of mcg/mL 00:00: lar route [place] injection 00 every 2 Medical (two) Branch weeks. levalbutero 2020-09 Yes [id number] .63mg Inhale [facility] l 0.63 mg/3 1-09 0.63 mg 3 ity of mL 00:00: (three) [place] nebulizer 00 times Medical solution daily as Branch needed for Wheezing or Shortness of Breath. cyclobenzap 2020-09 Yes [id number] TAKE 1 [facility] rine 5 mg 1-09 TABLET BY ity o f tablet 00:00: MOUTH [place] 00 EVERY 8 Medical HOURS Branch NEEDED albuterol 2020-09 Yes [id number] 2{puff} Inhale 2 [facility] (PROAIR 1-09 Puffs ity of HFA) 90 00:00: every 6 [place] mcg/actuati 00 (six) Medical on inhaler hours as Branc h needed for Wheezing or Shortness of Breath. cyanocobala 2020-09 Yes [id number] 1000ug 1 mL by [facility] min 1,000 1-09 Intramuscu ity of mcg/mL 00:00: lar route [place] injection 00 every 2 Medical (two) Branch weeks. levalbutero 2020-09 Yes [id number] .63mg Inhale [facility] l 0.63 mg/3 1-09 0.63 mg 3 ity of mL 00:00: (three) [place] nebulizer 00 times Medical solution daily as Branch needed for Wheezing or Shortness of Breath. cyclobenzap 2020-09 Yes [id number] TAKE 1 [facility] rine 5 mg 1-09 TABLET BY ity o f tablet 00:00: MOUTH [place] 00 EVERY 8 Medical HOURS Branch NEEDED albuterol 2020-09 Yes [id number] 2{puff} Inhale 2 [facility] (PROAIR 1-09 Puffs ity of HFA) 90 00:00: every 6 [place] mcg/actuati 00 (six) Medical on inhaler hours as Branc h needed for Wheezing or Shortness of Breath. cyanocobala 2020-09 Yes [id number] 1000ug 1 mL by [facility] min 1,000 1-09 Intramuscu ity of mcg/mL 00:00: lar route [place] injection 00 every 2 Medical (two) Branch weeks. levalbutero 2020-09 Yes [id number] .63mg Inhale [facility] l 0.63 mg/3 1-09 0.63 mg 3 ity of mL 00:00: (three) [place] nebulizer 00 times Medical solution daily as Branch needed for Wheezing or Shortness of Breath. cyclobenzap 2020-09 Yes [id number] TAKE 1 [facility] rine 5 mg 1-09 TABLET BY ity o f tablet 00:00: MOUTH [place] 00 EVERY 8 Medical HOURS Branch NEEDED albuterol 2020-09 Yes [id number] 2{puff} Inhale 2 [facility] (PROAIR 1-09 Puffs ity of HFA) 90 00:00: every 6 [place] mcg/actuati 00 (six) Medical on inhaler hours as Branc h needed for Wheezing or Shortness of Breath. cyanocobala 2020-09 Yes [id number] 1000ug 1 mL by [facility] min 1,000 1-09 Intramuscu ity of mcg/mL 00:00: lar route [place] injection 00 every 2 Medical (two) Branch weeks. levalbutero 2020-09 Yes [id number] .63mg Inhale [facility] l 0.63 mg/3 1-09 0.63 mg 3 ity of mL 00:00: (three) [place] nebulizer 00 times Medical solution daily as Branch needed for Wheezing or Shortness of Breath. cyclobenzap 2020-09 Yes [id number] TAKE 1 [facility] rine 5 mg 1-09 TABLET BY ity o f tablet 00:00: MOUTH [place] 00 EVERY 8 Medical HOURS Branch NEEDED albuterol 2020-09 Yes [id number] 2{puff} Inhale 2 [facility] (PROAIR 1-09 Puffs ity of HFA) 90 00:00: every 6 [place] mcg/actuati 00 (six) Medical on inhaler hours as Branc h needed for Wheezing or Shortness of Breath. levalbutero 2020-09 Yes [id number] .63mg Inhale [facility] l 0.63 mg/3 1-09 0.63 mg 3 ity of mL 00:00: (three) [place] nebulizer 00 times Medical solution daily as Branch needed for Wheezing or Shortness of Breath. cyclobenzap 2020-09 Yes [id number] TAKE 1 [facility] rine 5 mg 1-09 TABLET BY ity o f tablet 00:00: MOUTH [place] 00 EVERY 8 Medical HOURS Branch NEEDED albuterol 2020-09 Yes [id number] 2{puff} Inhale 2 [facility] (PROAIR 1-09 Puffs ity of HFA) 90 00:00: every 6 [place] mcg/actuati 00 (six) Medical on inhaler hours as Branc h needed for Wheezing or Shortness of Breath. levalbutero 2020-09 Yes [id number] .63mg Inhale [facility] l 0.63 mg/3 1-09 0.63 mg 3 ity of mL 00:00: (three) [place] nebulizer 00 times Medical solution daily as Branch needed for Wheezing or Shortness of Breath. cyclobenzap 2020-09 Yes [id number] TAKE 1 [facility] rine 5 mg 1-09 TABLET BY ity o f tablet 00:00: MOUTH [place] 00 EVERY 8 Medical HOURS Branch NEEDED albuterol 2020-09 Yes [id number] 2{puff} Inhale 2 [facility] (PROAIR 1-09 Puffs ity of HFA) 90 00:00: every 6 [place] mcg/actuati 00 (six) Medical on inhaler hours as Branc h needed for Wheezing or Shortness of Breath. levalbutero 2020-09 Yes [id number] .63mg Inhale [facility] l 0.63 mg/3 1-09 0.63 mg 3 ity of mL 00:00: (three) [place] nebulizer 00 times Medical solution daily as Branch needed for Wheezing or Shortness of Breath. cyclobenzap 2020-09 Yes [id number] TAKE 1 [facility] rine 5 mg 1-09 TABLET BY ity o f tablet 00:00: MOUTH [place] 00 EVERY 8 Medical HOURS Branch NEEDED albuterol 2020-09 Yes [id number] 2{puff} Inhale 2 [facility] (PROAIR 1-09 Puffs ity of HFA) 90 00:00: every 6 [place] mcg/actuati 00 (six) Medical on inhaler hours as Branc h needed for Wheezing or Shortness of Breath. levalbutero 2020-09 Yes [id number] .63mg Inhale [facility] l 0.63 mg/3 1-09 0.63 mg 3 ity of mL 00:00: (three) [place] nebulizer 00 times Medical solution daily as Branch needed for Wheezing or Shortness of Breath. cyclobenzap 2020-09 Yes [id number] TAKE 1 [facility] rine 5 mg 1-09 TABLET BY ity o f tablet 00:00: MOUTH [place] 00 EVERY 8 Medical HOURS Branch NEEDED albuterol 2020-09 Yes [id number] 2{puff} Inhale 2 [facility] (PROAIR 1-09 Puffs ity of HFA) 90 00:00: every 6 [place] mcg/actuati 00 (six) Medical on inhaler hours as Branc h needed for Wheezing or Shortness of Breath. levalbutero 2020-09 Yes [id number] .63mg Inhale [facility] l 0.63 mg/3 1-09 0.63 mg 3 ity of mL 00:00: (three) [place] nebulizer 00 times Medical solution daily as Branch needed for Wheezing or Shortness of Breath. cyclobenzap 2020-09 Yes [id number] TAKE 1 [facility] rine 5 mg 1-09 TABLET BY ity o f tablet 00:00: MOUTH [place] 00 EVERY 8 Medical HOURS Branch NEEDED albuterol 2020-09 Yes [id number] 2{puff} Inhale 2 [facility] (PROAIR 1-09 Puffs ity of HFA) 90 00:00: every 6 [place] mcg/actuati 00 (six) Medical on inhaler hours as Branc h needed for Wheezing or Shortness of Breath. levalbutero 2020-09 Yes [id number] .63mg Inhale [facility] l 0.63 mg/3 1-09 0.63 mg 3 ity of mL 00:00: (three) [place] nebulizer 00 times Medical solution daily as Branch needed for Wheezing or Shortness of Breath. cyclobenzap 2020-09 Yes [id number] TAKE 1 [facility] rine 5 mg 1-09 TABLET BY it[facility] o f tablet 00:00: MOUTH [place] 00 EVERY 8 Medical HOURS Branch NEEDED albuterol 2020-09 Yes [id number] 2{puff} Inhale 2 [facility] (PROAIR 1-09 Puffs ity of HFA) 90 00:00: every 6 [place] mcg/actuati 00 (six) Medical on inhaler hours as Branc h needed for Wheezing or Shortness of Breath. levalbutero 2020-09 Yes [id number] .63mg Inhale [facility] l 0.63 mg/3 1-09 0.63 mg 3 ity of mL 00:00: (three) [place] nebulizer 00 times Medical solution daily as Branch needed for Wheezing or Shortness of Breath. cyclobenzap 2020-09 Yes [id number] TAKE 1 [facility] rine 5 mg 1-09 TABLET BY ity o f tablet 00:00: MOUTH [place] 00 EVERY 8 Medical HOURS Branch NEEDED albuterol 2020-09 Yes [id number] 2{puff} Inhale 2 [facility] (PROAIR 1-09 Puffs ity of HFA) 90 00:00: every 6 [place] mcg/actuati 00 (six) Medical on inhaler hours as Branc h needed for Wheezing or Shortness of Breath. levalbutero 2020-09 Yes [id number] .63mg Inhale [facility] l 0.63 mg/3 1-09 0.63 mg 3 ity of mL 00:00: (three) [place] nebulizer 00 times Medical solution daily as Branch needed for Wheezing or Shortness of Breath. cyclobenzap 2020-09 Yes [id number] TAKE 1 [facility] rine 5 mg 1-09 TABLET BY ity o f tablet 00:00: MOUTH [place] 00 EVERY 8 Medical HOURS Branch NEEDED albuterol 2020-09 Yes [id number] 2{puff} Inhale 2 [facility] (PROAIR 1-09 Puffs ity of HFA) 90 00:00: every 6 [place] mcg/actuati 00 (six) Medical on inhaler hours as Branc h needed for Wheezing or Shortness of Breath. levalbutero 2020-09 Yes [id number] .63mg Inhale [facility] l 0.63 mg/3 1-09 0.63 mg 3 ity of mL 00:00: (three) [place] nebulizer 00 times Medical solution daily as Branch needed for Wheezing or Shortness of Breath. cyclobenzap 2020-09 Yes [id number] TAKE 1 [facility] rine 5 mg 1-09 TABLET BY ity o f tablet 00:00: MOUTH [place] 00 EVERY 8 Medical HOURS Branch NEEDED albuterol 2020-09 Yes [id number] 2{puff} Inhale 2 [facility] (PROAIR 1-09 Puffs ity of HFA) 90 00:00: every 6 [place] mcg/actuati 00 (six) Medical on inhaler hours as Branc h needed for Wheezing or Shortness of Breath. levalbutero 2020-09 Yes [id number] .63mg Inhale [facility] l 0.63 mg/3 1-09 0.63 mg 3 ity of mL 00:00: (three) [place] nebulizer 00 times Medical solution daily as Branch needed for Wheezing or Shortness of Breath. cyclobenzap 2020-09 Yes [id number] TAKE 1 [facility] rine 5 mg 1-09 TABLET BY ity o f tablet 00:00: MOUTH [place] 00 EVERY 8 Medical HOURS Branch NEEDED albuterol 2020-09 Yes [id number] 2{puff} Inhale 2 [facility] (PROAIR 1-09 Puffs ity of HFA) 90 00:00: every 6 [place] mcg/actuati 00 (six) Medical on inhaler hours as Branc h needed for Wheezing or Shortness of Breath. levalbutero 2020-09 Yes [id number] .63mg Inhale [facility] l 0.63 mg/3 1-09 0.63 mg 3 ity of mL 00:00: (three) [place] nebulizer 00 times Medical solution daily as Branch needed for Wheezing or Shortness of Breath. cyclobenzap 2020-09 Yes [id number] TAKE 1 [facility] rine 5 mg 1-09 TABLET BY ity o f tablet 00:00: MOUTH [place] 00 EVERY 8 Medical HOURS Branch NEEDED albuterol 2020-09 Yes [id number] 2{puff} Inhale 2 [facility] (PROAIR 1-09 Puffs ity of HFA) 90 00:00: every 6 [place] mcg/actuati 00 (six) Medical on inhaler hours as Branc h needed for Wheezing or Shortness of Breath. levalbutero 2020-09 Yes [id number] .63mg Inhale [facility] l 0.63 mg/3 1-09 0.63 mg 3 ity of mL 00:00: (three) [place] nebulizer 00 times Medical solution daily as Branch needed for Wheezing or Shortness of Breath. cyclobenzap 2020-09 Yes [id number] TAKE 1 [facility] rine 5 mg 1-09 TABLET BY ity o f tablet 00:00: MOUTH [place] 00 EVERY 8 Medical HOURS Branch NEEDED albuterol 2020-09 Yes [id number] 2{puff} Inhale 2 [facility] (PROAIR 1-09 Puffs ity of HFA) 90 00:00: every 6 [place] mcg/actuati 00 (six) Medical on inhaler hours as Branc h needed for Wheezing or Shortness of Breath. levalbutero 2020-09 Yes [id number] .63mg Inhale [facility] l 0.63 mg/3 1-09 0.63 mg 3 ity of mL 00:00: (three) [place] nebulizer 00 times Medical solution daily as Branch needed for Wheezing or Shortness of Breath. cyclobenzap 2020-09 Yes [id number] TAKE 1 [facility] rine 5 mg 1-09 TABLET BY ity o f tablet 00:00: MOUTH [place] 00 EVERY 8 Medical HOURS Branch NEEDED albuterol 2020-09 Yes [id number] 2{puff} Inhale 2 [facility] (PROAIR 1-09 Puffs ity of HFA) 90 00:00: every 6 [place] mcg/actuati 00 (six) Medical on inhaler hours as Branc h needed for Wheezing or Shortness of Breath. levalbutero 2020-09 Yes [id number] .63mg Inhale [facility] l 0.63 mg/3 1-09 0.63 mg 3 ity of mL 00:00: (three) [place] nebulizer 00 times Medical solution daily as Branch needed for Wheezing or Shortness of Breath. cyclobenzap 2020-09 Yes [id number] TAKE 1 [facility] rine 5 mg 1-09 TABLET BY ity o f tablet 00:00: MOUTH [place] 00 EVERY 8 Medical HOURS Branch NEEDED albuterol 2020-09 Yes [id number] 2{puff} Inhale 2 [facility] (PROAIR 1-09 Puffs ity of HFA) 90 00:00: every 6 [place] mcg/actuati 00 (six) Medical on inhaler hours as Branc h needed for Wheezing or Shortness of Breath. levalbutero 2020-09 Yes [id number] .63mg Inhale [facility] l 0.63 mg/3 1-09 0.63 mg 3 ity of mL 00:00: (three) [place] nebulizer 00 times Medical solution daily as Branch needed for Wheezing or Shortness of Breath. cyclobenzap 2020-09 Yes [id number] TAKE 1 [facility] rine 5 mg 1-09 TABLET BY ity o f tablet 00:00: MOUTH [place] 00 EVERY 8 Medical HOURS Branch NEEDED albuterol 2020-09 Yes [id number] 2{puff} Inhale 2 [facility] (PROAIR 1-09 Puffs ity of HFA) 90 00:00: every 6 [place] mcg/actuati 00 (six) Medical on inhaler hours as Branc h needed for Wheezing or Shortness of Breath. levalbutero 2020-09 Yes [id number] .63mg Inhale [facility] l 0.63 mg/3 1-09 0.63 mg 3 ity of mL 00:00: (three) [place] nebulizer 00 times Medical solution daily as Branch needed for Wheezing or Shortness of Breath. cyclobenzap 2020-09 Yes [id number] TAKE 1 [facility] rine 5 mg 1-09 TABLET BY ity o f tablet 00:00: MOUTH [place] 00 EVERY 8 Medical HOURS Branch NEEDED albuterol 2020-09 Yes [id number] 2{puff} Inhale 2 [facility] (PROAIR 1-09 Puffs ity of HFA) 90 00:00: every 6 [place] mcg/actuati 00 (six) Medical on inhaler hours as Branc h needed for Wheezing or Shortness of Breath. levalbutero 2020-09 Yes [id number] .63mg Inhale [facility] l 0.63 mg/3 1-09 0.63 mg 3 ity of mL 00:00: (three) [place] nebulizer 00 times Medical solution daily as Branch needed for Wheezing or Shortness of Breath. cyclobenzap 2020-09 Yes [id number] TAKE 1 [facility] rine 5 mg 1-09 TABLET BY ity o f tablet 00:00: MOUTH [place] 00 EVERY 8 Medical HOURS Branch NEEDED albuterol 2020-09 Yes [id number] 2{puff} Inhale 2 [facility] (PROAIR 1-09 Puffs ity of HFA) 90 00:00: every 6 [place] mcg/actuati 00 (six) Medical on inhaler hours as Branc h needed for Wheezing or Shortness of Breath. levalbutero 2020-09 Yes [id number] .63mg Inhale [facility] l 0.63 mg/3 1-09 0.63 mg 3 ity of mL 00:00: (three) [place] nebulizer 00 times Medical solution daily as Branch needed for Wheezing or Shortness of Breath. cyclobenzap 2020-09 Yes [id number] TAKE 1 [facility] rine 5 mg 1-09 TABLET BY ity o f tablet 00:00: MOUTH [place] 00 EVERY 8 Medical HOURS Branch NEEDED albuterol 2020-09 Yes [id number] 2{puff} Inhale 2 [facility] (PROAIR 1-09 Puffs ity of HFA) 90 00:00: every 6 [place] mcg/actuati 00 (six) Medical on inhaler hours as Branc h needed for Wheezing or Shortness of Breath. levalbutero 2020-09 Yes [id number] .63mg Inhale [facility] l 0.63 mg/3 1-09 0.63 mg 3 ity of mL 00:00: (three) [place] nebulizer 00 times Medical solution daily as Branch needed for Wheezing or Shortness of Breath. albuterol 2020-09 Yes [id number] 2{puff} Inhale 2 [facility] (PROAIR 1-09 Puffs ity of HFA) 90 00:00: every 6 [place] mcg/actuati 00 (six) Medical on inhaler hours as Branc h needed for Wheezing or Shortness of Breath. levalbutero 2020-09 Yes [id number] .63mg Inhale [facility] l 0.63 mg/3 1-09 0.63 mg 3 ity of mL 00:00: (three) [place] nebulizer 00 times Medical solution daily as Branch needed for Wheezing or Shortness of Breath. albuterol 2020-09 Yes [id number] 2{puff} Inhale 2 [facility] (PROAIR 1-09 Puffs ity of HFA) 90 00:00: every 6 [place] mcg/actuati 00 (six) Medical on inhaler hours as Branc h needed for Wheezing or Shortness of Breath. levalbutero 2020-09 Yes [id number] .63mg Inhale [facility] l 0.63 mg/3 1-09 0.63 mg 3 ity of mL 00:00: (three) [place] nebulizer 00 times Medical solution daily as Branch needed for Wheezing or Shortness of Breath. albuterol 2020-09 Yes [id number] 2{puff} Inhale 2 [facility] (PROAIR 1-09 Puffs ity of HFA) 90 00:00: every 6 [place] mcg/actuati 00 (six) Medical on inhaler hours as Branc h needed for Wheezing or Shortness of Breath. levalbutero 2020-09 Yes [id number] .63mg Inhale [facility] l 0.63 mg/3 1-09 0.63 mg 3 ity of mL 00:00: (three) [place] nebulizer 00 times Medical solution daily as Branch needed for Wheezing or Shortness of Breath. albuterol 2020-09 Yes [id number] 2{puff} Inhale 2 [facility] (PROAIR 1-09 Puffs ity of HFA) 90 00:00: every 6 [place] mcg/actuati 00 (six) Medical on inhaler hours as Branc h needed for Wheezing or Shortness of Breath. levalbutero 2020-09 Yes [id number] .63mg Inhale [facility] l 0.63 mg/3 1-09 0.63 mg 3 ity of mL 00:00: (three) [place] nebulizer 00 times Medical solution daily as Branch needed for Wheezing or Shortness of Breath. albuterol 2020-09 Yes [id number] 2{puff} Inhale 2 [facility] (PROAIR 1-09 Puffs ity of HFA) 90 00:00: every 6 [place] mcg/actuati 00 (six) Medical on inhaler hours as Branc h needed for Wheezing or Shortness of Breath. levalbutero 2020-09 Yes [id number] .63mg Inhale [facility] l 0.63 mg/3 1-09 0.63 mg 3 ity of mL 00:00: (three) [place] nebulizer 00 times Medical solution daily as Branch needed for Wheezing or Shortness of Breath. albuterol 2020-09 Yes [id number] 2{puff} Inhale 2 [facility] (PROAIR 1-09 Puffs ity of HFA) 90 00:00: every 6 [place] mcg/actuati 00 (six) Medical on inhaler hours as Branc h needed for Wheezing or Shortness of Breath. levalbutero 2020-09 Yes [id number] .63mg Inhale [facility] l 0.63 mg/3 1-09 0.63 mg 3 ity of mL 00:00: (three) [place] nebulizer 00 times Medical solution daily as Branch needed for Wheezing or Shortness of Breath. albuterol 2020-09 Yes [id number] 2{puff} Inhale 2 [facility] (PROAIR 1-09 Puffs ity of HFA) 90 00:00: every 6 [place] mcg/actuati 00 (six) Medical on inhaler hours as Branc h needed for Wheezing or Shortness of Breath. levalbutero 2020-09 Yes [id number] .63mg Inhale [facility] l 0.63 mg/3 1-09 0.63 mg 3 ity of mL 00:00: (three) [place] nebulizer 00 times Medical solution daily as Branch needed for Wheezing or Shortness of Breath. albuterol 2020-09 Yes [id number] 2{puff} Inhale 2 [facility] (PROAIR 1-09 Puffs ity of HFA) 90 00:00: every 6 [place] mcg/actuati 00 (six) Medical on inhaler hours as Branc h needed for Wheezing or Shortness of Breath. levalbutero 2020-09 Yes [id number] .63mg Inhale [facility] l 0.63 mg/3 1-09 0.63 mg 3 ity of mL 00:00: (three) [place] nebulizer 00 times Medical solution daily as Branch needed for Wheezing or Shortness of Breath. albuterol 2020-09 Yes [id number] 2{puff} Inhale 2 [facility] (PROAIR 1-09 Puffs ity of HFA) 90 00:00: every 6 [place] mcg/actuati 00 (six) Medical on inhaler hours as Branc h needed for Wheezing or Shortness of Breath. levalbutero 2020-09 Yes [id number] .63mg Inhale [facility] l 0.63 mg/3 1-09 0.63 mg 3 ity of mL 00:00: (three) [place] nebulizer 00 times Medical solution daily as Branch needed for Wheezing or Shortness of Breath. albuterol 2020-09 Yes [id number] 2{puff} Inhale 2 [facility] (PROAIR 1-09 Puffs ity of HFA) 90 00:00: every 6 [place] mcg/actuati 00 (six) Medical on inhaler hours as Branc h needed for Wheezing or Shortness of Breath. levalbutero 2020-09 Yes [id number] .63mg Inhale [facility] l 0.63 mg/3 1-09 0.63 mg 3 ity of mL 00:00: (three) [place] nebulizer 00 times Medical solution daily as Branch needed for Wheezing or Shortness of Breath. albuterol 2020-09 Yes [id number] 2{puff} Inhale 2 [facility] (PROAIR 1-09 Puffs ity of HFA) 90 00:00: every 6 [place] mcg/actuati 00 (six) Medical on inhaler hours as Branc h needed for Wheezing or Shortness of Breath. levalbutero 2020-09 Yes [id number] .63mg Inhale [facility] l 0.63 mg/3 1-09 0.63 mg 3 ity of mL 00:00: (three) [place] nebulizer 00 times Medical solution daily as Branch needed for Wheezing or Shortness of Breath. albuterol 2020-09 Yes [id number] 2{puff} Inhale 2 [facility] (PROAIR 1-09 Puffs ity of HFA) 90 00:00: every 6 [place] mcg/actuati 00 (six) Medical on inhaler hours as Branc h needed for Wheezing or Shortness of Breath. levalbutero 2020-09 Yes [id number] .63mg Inhale [facility] l 0.63 mg/3 1-09 0.63 mg 3 ity of mL 00:00: (three) [place] nebulizer 00 times Medical solution daily as Branch needed for Wheezing or Shortness of Breath. albuterol 2020-09 Yes [id number] 2{puff} Inhale 2 [facility] (PROAIR 1-09 Puffs ity of HFA) 90 00:00: every 6 [place] mcg/actuati 00 (six) Medical on inhaler hours as Branc h needed for Wheezing or Shortness of Breath. levalbutero 2020-09 Yes [id number] .63mg Inhale [facility] l 0.63 mg/3 1-09 0.63 mg 3 ity of mL 00:00: (three) [place] nebulizer 00 times Medical solution daily as Branch needed for Wheezing or Shortness of Breath. albuterol 2020-09 Yes [id number] 2{puff} Inhale 2 [facility] (PROAIR 1-09 Puffs ity of HFA) 90 00:00: every 6 [place] mcg/actuati 00 (six) Medical on inhaler hours as Branc h needed for Wheezing or Shortness of Breath. levalbutero 2020-09 Yes [id number] .63mg Inhale [facility] l 0.63 mg/3 1-09 0.63 mg 3 ity of mL 00:00: (three) [place] nebulizer 00 times Medical solution daily as Branch needed for Wheezing or Shortness of Breath. albuterol 2020-09 Yes [id number] 2{puff} Inhale 2 [facility] (PROAIR 1-09 Puffs ity of HFA) 90 00:00: every 6 [place] mcg/actuati 00 (six) Medical on inhaler hours as Branc h needed for Wheezing or Shortness of Breath. levalbutero 2020-09 Yes [id number] .63mg Inhale [facility] l 0.63 mg/3 1-09 0.63 mg 3 ity of mL 00:00: (three) [place] nebulizer 00 times Medical solution daily as Branch needed for Wheezing or Shortness of Breath. albuterol 2020-09 Yes [id number] 2{puff} Inhale 2 [facility] (PROAIR 1-09 Puffs ity of HFA) 90 00:00: every 6 [place] mcg/actuati 00 (six) Medical on inhaler hours as Branc h needed for Wheezing or Shortness of Breath. levalbutero 2020-09 Yes [id number] .63mg Inhale [facility] l 0.63 mg/3 1-09 0.63 mg 3 ity of mL 00:00: (three) [place] nebulizer 00 times Medical solution daily as Branch needed for Wheezing or Shortness of Breath. albuterol 2020-09 Yes [id number] 2{puff} Inhale 2 [facility] (PROAIR 1-09 Puffs ity of HFA) 90 00:00: every 6 [place] mcg/actuati 00 (six) Medical on inhaler hours as Branc h needed for Wheezing or Shortness of Breath. levalbutero 2020-09 Yes [id number] .63mg Inhale [facility] l 0.63 mg/3 1-09 0.63 mg 3 ity of mL 00:00: (three) [place] nebulizer 00 times Medical solution daily as Branch needed for Wheezing or Shortness of Breath. albuterol 2020-09 Yes [id number] 2{puff} Inhale 2 [facility] (PROAIR 1-09 Puffs ity of HFA) 90 00:00: every 6 [place] mcg/actuati 00 (six) Medical on inhaler hours as Branc h needed for Wheezing or Shortness of Breath. levalbutero 2020-09 Yes [id number] .63mg Inhale [facility] l 0.63 mg/3 1-09 0.63 mg 3 ity of mL 00:00: (three) [place] nebulizer 00 times Medical solution daily as Branch needed for Wheezing or Shortness of Breath. albuterol 2020-09 Yes [id number] 2{puff} Inhale 2 [facility] (PROAIR 1-09 Puffs ity of HFA) 90 00:00: every 6 [place] mcg/actuati 00 (six) Medical on inhaler hours as Branc h needed for Wheezing or Shortness of Breath. levalbutero 2020-09 Yes [id number] .63mg Inhale [facility] l 0.63 mg/3 1-09 0.63 mg 3 ity of mL 00:00: (three) [place] nebulizer 00 times Medical solution daily as Branch needed for Wheezing or Shortness of Breath. albuterol 2020-09 Yes [id number] 2{puff} Inhale 2 [facility] (PROAIR 1-09 Puffs ity of HFA) 90 00:00: every 6 [place] mcg/actuati 00 (six) Medical on inhaler hours as Branc h needed for Wheezing or Shortness of Breath. levalbutero 2020-09 Yes [id number] .63mg Inhale [facility] l 0.63 mg/3 1-09 0.63 mg 3 ity of mL 00:00: (three) [place] nebulizer 00 times Medical solution daily as Branch needed for Wheezing or Shortness of Breath. albuterol 2020-09 Yes [id number] 2{puff} Inhale 2 [facility] (PROAIR 1-09 Puffs ity of HFA) 90 00:00: every 6 [place] mcg/actuati 00 (six) Medical on inhaler hours as Branc h needed for Wheezing or Shortness of Breath. levalbutero 2020-09 Yes [id number] .63mg Inhale [facility] l 0.63 mg/3 1-09 0.63 mg 3 ity of mL 00:00: (three) [place] nebulizer 00 times Medical solution daily as Branch needed for Wheezing or Shortness of Breath. albuterol 2020-09 Yes [id number] 2{puff} Inhale 2 [facility] (PROAIR 1-09 Puffs ity of HFA) 90 00:00: every 6 [place] mcg/actuati 00 (six) Medical on inhaler hours as Branc h needed for Wheezing or Shortness of Breath. levalbutero 2020-09 Yes [id number] .63mg Inhale [facility] l 0.63 mg/3 1-09 0.63 mg 3 ity of mL 00:00: (three) [place] nebulizer 00 times Medical solution daily as Branch needed for Wheezing or Shortness of Breath. albuterol 2020-09 Yes [id number] 2{puff} Inhale 2 [facility] (PROAIR 1-09 Puffs ity of HFA) 90 00:00: every 6 [place] mcg/actuati 00 (six) Medical on inhaler hours as Branc h needed for Wheezing or Shortness of Breath. levalbutero 2020-09 Yes [id number] .63mg Inhale [facility] l 0.63 mg/3 1-09 0.63 mg 3 ity of mL 00:00: (three) [place] nebulizer 00 times Medical solution daily as Branch needed for Wheezing or Shortness of Breath. albuterol 2020-09 Yes [id number] 2{puff} Inhale 2 [facility] (PROAIR 1-09 Puffs ity of HFA) 90 00:00: every 6 [place] mcg/actuati 00 (six) Medical on inhaler hours as Branc h needed for Wheezing or Shortness of Breath. levalbutero 2020-09 Yes [id number] .63mg Inhale [facility] l 0.63 mg/3 1-09 0.63 mg 3 ity of mL 00:00: (three) [place] nebulizer 00 times Medical solution daily as Branch needed for Wheezing or Shortness of Breath. albuterol 2020-09 Yes [id number] 2{puff} Inhale 2 [facility] (PROAIR 1-09 Puffs ity of HFA) 90 00:00: every 6 [place] mcg/actuati 00 (six) Medical on inhaler hours as Branc h needed for Wheezing or Shortness of Breath. levalbutero 2020-09 Yes [id number] .63mg Inhale [facility] l 0.63 mg/3 1-09 0.63 mg 3 ity of mL 00:00: (three) [place] nebulizer 00 times Medical solution daily as Branch needed for Wheezing or Shortness of Breath. albuterol 2020-09 Yes [id number] 2{puff} Inhale 2 [facility] (PROAIR 1-09 Puffs ity of HFA) 90 00:00: every 6 [place] mcg/actuati 00 (six) Medical on inhaler hours as Branc h needed for Wheezing or Shortness of Breath. levalbutero 2020-09 Yes [id number] .63mg Inhale [facility] l 0.63 mg/3 1-09 0.63 mg 3 ity of mL 00:00: (three) [place] nebulizer 00 times Medical solution daily as Branch needed for Wheezing or Shortness of Breath. albuterol 2020-09 Yes [id number] 2{puff} Inhale 2 [facility] (PROAIR 1-09 Puffs ity of HFA) 90 00:00: every 6 [place] mcg/actuati 00 (six) Medical on inhaler hours as Branc h needed for Wheezing or Shortness of Breath. levalbutero 2020-09 Yes [id number] .63mg Inhale [facility] l 0.63 mg/3 1-09 0.63 mg 3 ity of mL 00:00: (three) [place] nebulizer 00 times Medical solution daily as Branch needed for Wheezing or Shortness of Breath. albuterol 2020-09 Yes [id number] 2{puff} Inhale 2 [facility] (PROAIR 1-09 Puffs ity of HFA) 90 00:00: every 6 [place] mcg/actuati 00 (six) Medical on inhaler hours as Branc h needed for Wheezing or Shortness of Breath. levalbutero 2020-09 Yes [id number] .63mg Inhale [facility] l 0.63 mg/3 1-09 0.63 mg 3 ity of mL 00:00: (three) [place] nebulizer 00 times Medical solution daily as Branch needed for Wheezing or Shortness of Breath. albuterol 2020-09 Yes [id number] 2{puff} Inhale 2 [facility] (PROAIR 1-09 Puffs ity of HFA) 90 00:00: every 6 [place] mcg/actuati 00 (six) Medical on inhaler hours as Branc h needed for Wheezing or Shortness of Breath. levalbutero 2020-09 Yes [id number] .63mg Inhale [facility] l 0.63 mg/3 1-09 0.63 mg 3 ity of mL 00:00: (three) [place] nebulizer 00 times Medical solution daily as Branch needed for Wheezing or Shortness of Breath. albuterol 2020-09 Yes [id number] 2{puff} Inhale 2 [facility] (PROAIR 1-09 Puffs ity of HFA) 90 00:00: every 6 [place] mcg/actuati 00 (six) Medical on inhaler hours as Branc h needed for Wheezing or Shortness of Breath. levalbutero 2020-09 Yes [id number] .63mg Inhale [facility] l 0.63 mg/3 1-09 0.63 mg 3 ity of mL 00:00: (three) [place] nebulizer 00 times Medical solution daily as Branch needed for Wheezing or Shortness of Breath. albuterol 2020-09 Yes [id number] 2{puff} Inhale 2 [facility] (PROAIR 1-09 Puffs ity of HFA) 90 00:00: every 6 [place] mcg/actuati 00 (six) Medical on inhaler hours as Branc h needed for Wheezing or Shortness of Breath. rosuvastati 2020-09 Yes [id number] 10mg Take 1 [facility] n 10 mg 1-09 tablet by ity of tablet 00:00: mouth at [place] 00 bedtime. Medical Branch cyanocobala 2020-09 Yes [id number] 1000ug 1 mL by [facility] min 1,000 1-09 Intramuscu ity of mcg/mL 00:00: lar route [place] injection 00 every 2 Medical (two) Branch weeks. levothyroxi 2020-09 Yes [id number] 50ug Take 1 [facility] ne 50 mcg 1-09 tablet by ity o f tablet 00:00: mouth [place] 00 every Medical morning. Branch fluticasone 2020-09 Yes [id number] 2{puff} Inhale 2 [facility] propionate 1-09 Puffs ity of (FLOVENT 00:00: every 12 [place] HFA) 110 00 (twelve) Medical mcg/actuati hours. Branch on inhaler Rinse mouth after each use. levalbutero 2020-09 Yes [id number] .63mg Inhale [facility] l 0.63 mg/3 1-09 0.63 mg 3 ity of mL 00:00: (three) [place] nebulizer 00 times Medical solution daily as Branch needed for Wheezing or Shortness of Breath. losartan 50 2020-09 Yes [id number] 50mg Take 1 [facility] mg tablet 1-09 tablet by ity o f 00:00: mouth 2 [place] 00 (two) Medical times Branch daily. clotrimazol 2020-09 Yes [id number] Apply to [facility] e-betametha -09 area(s) 2 ity of sone cream 00:00: (two) [place] 00 times Medical daily. Branch cyclobenzap 2020-09 Yes [id number] TAKE 1 [facility] rine 5 mg 1-09 TABLET BY ity o f tablet 00:00: MOUTH [place] 00 EVERY 8 Medical HOURS Branch NEEDED econazole 2020-09 Yes [id number] Apply to [facility] nitrate 1 % 09 area(s) 2 ity of cream 00:00: (two) [place] 00 times Medical daily. Branch albuterol 2020-09 Yes [id number] 2{puff} Inhale 2 [facility] (PROAIR 1-09 Puffs ity of HFA) 90 00:00: every 6 [place] mcg/actuati 00 (six) Medical on inhaler hours as Branc h needed for Wheezing or Shortness of Breath. triamcinolo 2020-09 Yes [id number] Apply to [facility] ne 0.025 % -09 area(s) 3 ity of ointment 00:00: (three) [place] 00 times Medical daily. For Branch itching diltiazem 2020-09 Yes [id number] 120mg Take 1 [facility] (CARTIA XT) 1-09 capsule by it y of 120 mg 24 00:00: mouth 2 [place] hr capsule 00 (two) Medical times Branch daily. rosuvastati 2020-09 Yes [id number] 10mg Take 1 [facility] n 10 mg 1-09 tablet by ity of tablet 00:00: mouth at [place] 00 bedtime. Medical Branch cyanocobala 2020-09 Yes [id number] 1000ug 1 mL by [facility] min 1,000 1-09 Intramuscu ity of mcg/mL 00:00: lar route [place] injection 00 every 2 Medical (two) Branch weeks. levothyroxi 2020-09 Yes [id number] 50ug Take 1 [facility] ne 50 mcg 1-09 tablet by ity o f tablet 00:00: mouth [place] 00 every Medical morning. Branch fluticasone 2020-09 Yes [id number] 2{puff} Inhale 2 [facility] propionate 1-09 Puffs ity of (FLOVENT 00:00: every 12 [place] HFA) 110 00 (twelve) Medical mcg/actuati hours. Branch on inhaler Rinse mouth after each use. levalbutero 2020-09 Yes [id number] .63mg Inhale [facility] l 0.63 mg/3 1-09 0.63 mg 3 ity of mL 00:00: (three) [place] nebulizer 00 times Medical solution daily as Branch needed for Wheezing or Shortness of Breath. losartan 50 2020-09 Yes [id number] 50mg Take 1 [facility] mg tablet -09 tablet by ity o f 00:00: mouth 2 [place] 00 (two) Medical times Branch daily. clotrimazol 2020-09 Yes [id number] Apply to [facility] e-betametha 10-04 area(s) 2 ity of sone cream 00:00: (two) [place] 00 times Medical daily. Branch cyclobenzap 2020-09 Yes [id number] TAKE 1 [facility] rine 5 mg 1-09 TABLET BY ity o f tablet 00:00: MOUTH [place] 00 EVERY 8 Medical HOURS Branch NEEDED econazole 2020-09 Yes [id number] Apply to [facility] nitrate 1 % -09 area(s) 2 ity of cream 00:00: (two) [place] 00 times Medical daily. Branch albuterol 2020-09 Yes [id number] 2{puff} Inhale 2 [facility] (PROAIR 1-09 Puffs ity of HFA) 90 00:00: every 6 [place] mcg/actuati 00 (six) Medical on inhaler hours as Branc h needed for Wheezing or Shortness of Breath. triamcinolo 2020-09 Yes [id number] Apply to [facility] ne 0.025 % 1-09 area(s) 3 ity of ointment 00:00: (three) [place] 00 times Medical daily. For Branch itching diltiazem 2020-09 Yes [id number] 120mg Take 1 [facility] (CARTIA XT) -09 capsule by it y of 120 mg 24 00:00: mouth 2 [place] hr capsule 00 (two) Medical times Branch daily. cyanocobala 2020-09 Yes [id number] 1000ug 1 mL by [facility] min 1,000 1-09 Intramuscu ity of mcg/mL 00:00: lar route [place] injection 00 every 2 Medical (two) Branch weeks. levothyroxi 2020-09 Yes [id number] 50ug Take 1 [facility] ne 50 mcg -09 tablet by ity o f tablet 00:00: mouth [place] 00 every Medical morning. Branch fluticasone 2020-09 Yes [id number] 2{puff} Inhale 2 [facility] propionate -09 Puffs ity of (FLOVENT 00:00: every 12 [place] HFA) 110 00 (twelve) Medical mcg/actuati hours. Branch on inhaler Rinse mouth after each use. levalbutero 2020-09 Yes [id number] .63mg Inhale [facility] l 0.63 mg/3 1-09 0.63 mg 3 ity of mL 00:00: (three) [place] nebulizer 00 times Medical solution daily as Branch needed for Wheezing or Shortness of Breath. losartan 50 2020-09 Yes [id number] 50mg Take 1 [facility] mg tablet -09 tablet by ity o f 00:00: mouth 2 [place] 00 (two) Medical times Branch daily. clotrimazol 2020-09 Yes [id number] Apply to [facility] e-betametha -09 area(s) 2 ity of sone cream 00:00: (two) [place] 00 times Medical daily. Branch cyclobenzap 2020-09 Yes [id number] TAKE 1 [facility] rine 5 mg 1-09 TABLET BY ity o f tablet 00:00: MOUTH [place] 00 EVERY 8 Medical HOURS Branch NEEDED econazole 2020-09 Yes [id number] Apply to [facility] nitrate 1 % 1-09 area(s) 2 ity of cream 00:00: (two) [place] 00 times Medical daily. Branch albuterol 2020-09 Yes [id number] 2{puff} Inhale 2 [facility] (PROAIR 1-09 Puffs ity of HFA) 90 00:00: every 6 [place] mcg/actuati 00 (six) Medical on inhaler hours as Branc h needed for Wheezing or Shortness of Breath. triamcinolo 2020-09 Yes [id number] Apply to [facility] ne 0.025 % 10-04 area(s) 3 ity of ointment 00:00: (three) [place] 00 times Medical daily. For Branch itching diltiazem 2020-09 Yes [id number] 120mg Take 1 [facility] (CARTIA XT) 09 capsule by it y of 120 mg 24 00:00: mouth 2 [place] hr capsule 00 (two) Medical times Branch daily. cyanocobala 2020-09 Yes [id number] 1000ug 1 mL by [facility] min 1,000 -09 Intramuscu ity of mcg/mL 00:00: lar route [place] injection 00 every 2 Medical (two) Branch weeks. levothyroxi 2020-09 Yes [id number] 50ug Take 1 [facility] ne 50 mcg -09 tablet by ity o f tablet 00:00: mouth [place] 00 every Medical morning. Branch fluticasone 2020-09 Yes [id number] 2{puff} Inhale 2 [facility] propionate 1-09 Puffs ity of (FLOVENT 00:00: every 12 [place] HFA) 110 00 (twelve) Medical mcg/actuati hours. Branch on inhaler Rinse mouth after each use. levalbutero 2020-09 Yes [id number] .63mg Inhale [facility] l 0.63 mg/3 1-09 0.63 mg 3 ity of mL 00:00: (three) [place] nebulizer 00 times Medical solution daily as Branch needed for Wheezing or Shortness of Breath. losartan 50 2020-09 Yes [id number] 50mg Take 1 [facility] mg tablet -09 tablet by ity o f 00:00: mouth 2 [place] 00 (two) Medical times Branch daily. clotrimazol 2020-09 Yes [id number] Apply to [facility] e-betametha 10-04 area(s) 2 ity of sone cream 00:00: (two) [place] 00 times Medical daily. Branch cyclobenzap 2020-09 Yes [id number] TAKE 1 [facility] rine 5 mg 1-09 TABLET BY ity o f tablet 00:00: MOUTH [place] 00 EVERY 8 Medical HOURS Branch NEEDED econazole 2020-09 Yes [id number] Apply to [facility] nitrate 1 % 09 area(s) 2 ity of cream 00:00: (two) [place] 00 times Medical daily. Branch albuterol 2020-09 Yes [id number] 2{puff} Inhale 2 [facility] (PROAIR 1-09 Puffs ity of HFA) 90 00:00: every 6 [place] mcg/actuati 00 (six) Medical on inhaler hours as Branc h needed for Wheezing or Shortness of Breath. triamcinolo 2020-09 Yes [id number] Apply to [facility] ne 0.025 % 09 area(s) 3 ity of ointment 00:00: (three) [place] 00 times Medical daily. For Branch itching diltiazem 2020-09 Yes [id number] 120mg Take 1 [facility] (CARTIA XT) 09 capsule by it y of 120 mg 24 00:00: mouth 2 [place] hr capsule 00 (two) Medical times Branch daily. cyanocobala 2020-09 Yes [id number] 1000ug 1 mL by [facility] min 1,000 1-09 Intramuscu ity of mcg/mL 00:00: lar route [place] injection 00 every 2 Medical (two) Branch weeks. levothyroxi 2020-09 Yes [id number] 50ug Take 1 [facility] ne 50 mcg -09 tablet by ity o f tablet 00:00: mouth [place] 00 every Medical morning. Branch fluticasone 2020-09 Yes [id number] 2{puff} Inhale 2 [facility] propionate 1-09 Puffs ity of (FLOVENT 00:00: every 12 [place] HFA) 110 00 (twelve) Medical mcg/actuati hours. Branch on inhaler Rinse mouth after each use. levalbutero 2020-09 Yes [id number] .63mg Inhale [facility] l 0.63 mg/3 1-09 0.63 mg 3 ity of mL 00:00: (three) [place] nebulizer 00 times Medical solution daily as Branch needed for Wheezing or Shortness of Breath. losartan 50 2020-09 Yes [id number] 50mg Take 1 [facility] mg tablet 1-09 tablet by ity o f 00:00: mouth 2 [place] 00 (two) Medical times Branch daily. clotrimazol 2020-09 Yes [id number] Apply to [facility] e-betametha -09 area(s) 2 ity of sone cream 00:00: (two) [place] 00 times Medical daily. Branch cyclobenzap 2020-09 Yes [id number] TAKE 1 [facility] rine 5 mg -09 TABLET BY ity o f tablet 00:00: MOUTH [place] 00 EVERY 8 Medical HOURS Branch NEEDED econazole 2020-09 Yes [id number] Apply to [facility] nitrate 1 % 09 area(s) 2 ity of cream 00:00: (two) [place] 00 times Medical daily. Branch albuterol 2020-09 Yes [id number] 2{puff} Inhale 2 [facility] (PROAIR 1-09 Puffs ity of HFA) 90 00:00: every 6 [place] mcg/actuati 00 (six) Medical on inhaler hours as Branc h needed for Wheezing or Shortness of Breath. triamcinolo 2020-09 Yes [id number] Apply to [facility] ne 0.025 % 10-04 area(s) 3 ity of ointment 00:00: (three) [place] 00 times Medical daily. For Branch itching diltiazem 2020-09 Yes [id number] 120mg Take 1 [facility] (CARTIA XT) -09 capsule by it y of 120 mg 24 00:00: mouth 2 [place] hr capsule 00 (two) Medical times Branch daily. cyanocobala 2020-09 Yes [id number] 1000ug 1 mL by [facility] min 1,000 1-09 Intramuscu ity of mcg/mL 00:00: lar route [place] injection 00 every 2 Medical (two) Branch weeks. levothyroxi 2020-09 Yes [id number] 50ug Take 1 [facility] ne 50 mcg 1-09 tablet by ity o f tablet 00:00: mouth [place] 00 every Medical morning. Branch fluticasone 2020-09 Yes [id number] 2{puff} Inhale 2 [facility] propionate 1-09 Puffs ity of (FLOVENT 00:00: every 12 [place] HFA) 110 00 (twelve) Medical mcg/actuati hours. Branch on inhaler Rinse mouth after each use. levalbutero 2020-09 Yes [id number] .63mg Inhale [facility] l 0.63 mg/3 -09 0.63 mg 3 ity of mL 00:00: (three) [place] nebulizer 00 times Medical solution daily as Branch needed for Wheezing or Shortness of Breath. losartan 50 2020-09 Yes [id number] 50mg Take 1 [facility] mg tablet 10-04 tablet by ity o f 00:00: mouth 2 [place] 00 (two) Medical times Branch daily. clotrimazol 2020-09 Yes [id number] Apply to [facility] e-betametha 10-04 area(s) 2 ity of sone cream 00:00: (two) [place] 00 times Medical daily. Branch cyclobenzap 2020-09 Yes [id number] TAKE 1 [facility] rine 5 mg 10-04 TABLET BY ity o f tablet 00:00: MOUTH [place] 00 EVERY 8 Medical HOURS Branch NEEDED econazole 2020-09 Yes [id number] Apply to [facility] nitrate 1 % 10-04 area(s) 2 ity of cream 00:00: (two) [place] 00 times Medical daily. Branch albuterol 2020-09 Yes [id number] 2{puff} Inhale 2 [facility] (PROAIR -09 Puffs ity of HFA) 90 00:00: every 6 [place] mcg/actuati 00 (six) Medical on inhaler hours as Branc h needed for Wheezing or Shortness of Breath. triamcinolo 2020-09 Yes [id number] Apply to [facility] ne 0.025 % 10-04 area(s) 3 ity of ointment 00:00: (three) [place] 00 times Medical daily. For Branch itching diltiazem 2020-09 Yes [id number] 120mg Take 1 [facility] (CARTIA XT) 09 capsule by it y of 120 mg 24 00:00: mouth 2 [place] hr capsule 00 (two) Medical times Branch daily. cyanocobala 2020-09 Yes [id number] 1000ug 1 mL by [facility] min 1,000 10-04 Intramuscu ity of mcg/mL 00:00: lar route [place] injection 00 every 2 Medical (two) Branch weeks. levothyroxi 2020-09 Yes [id number] 50ug Take 1 [facility] ne 50 mcg 1-09 tablet by ity o f tablet 00:00: mouth [place] 00 every Medical morning. Branch fluticasone 2020-09 Yes [id number] 2{puff} Inhale 2 [facility] propionate 1-09 Puffs ity of (FLOVENT 00:00: every 12 [place] HFA) 110 00 (twelve) Medical mcg/actuati hours. Branch on inhaler Rinse mouth after each use. levalbutero 2020-09 Yes [id number] .63mg Inhale [facility] l 0.63 mg/3 1-09 0.63 mg 3 ity of mL 00:00: (three) [place] nebulizer 00 times Medical solution daily as Branch needed for Wheezing or Shortness of Breath. losartan 50 2020-09 Yes [id number] 50mg Take 1 [facility] mg tablet 1-09 tablet by ity o f 00:00: mouth 2 [place] 00 (two) Medical times Branch daily. clotrimazol 2020-09 Yes [id number] Apply to [facility] e-betametha -09 area(s) 2 ity of sone cream 00:00: (two) [place] 00 times Medical daily. Branch cyclobenzap 2020-09 Yes [id number] TAKE 1 [facility] rine 5 mg 1-09 TABLET BY ity o f tablet 00:00: MOUTH [place] 00 EVERY 8 Medical HOURS Branch NEEDED econazole 2020-09 Yes [id number] Apply to [facility] nitrate 1 % 09 area(s) 2 ity of cream 00:00: (two) [place] 00 times Medical daily. Branch albuterol 2020-09 Yes [id number] 2{puff} Inhale 2 [facility] (PROAIR 1-09 Puffs ity of HFA) 90 00:00: every 6 [place] mcg/actuati 00 (six) Medical on inhaler hours as Branc h needed for Wheezing or Shortness of Breath. triamcinolo 2020-09 Yes [id number] Apply to [facility] ne 0.025 % -09 area(s) 3 ity of ointment 00:00: (three) [place] 00 times Medical daily. For Branch itching diltiazem 2020-09 Yes [id number] 120mg Take 1 [facility] (CARTIA XT) -09 capsule by it y of 120 mg 24 00:00: mouth 2 [place] hr capsule 00 (two) Medical times Branch daily. cyanocobala 2020-09 Yes [id number] 1000ug 1 mL by [facility] min 1,000 1-09 Intramuscu ity of mcg/mL 00:00: lar route [place] injection 00 every 2 Medical (two) Branch weeks. levothyroxi 2020-09 Yes [id number] 50ug Take 1 [facility] ne 50 mcg 1-09 tablet by ity o f tablet 00:00: mouth [place] 00 every Medical morning. Branch fluticasone 2020-09 Yes [id number] 2{puff} Inhale 2 [facility] propionate 1-09 Puffs ity of (FLOVENT 00:00: every 12 [place] HFA) 110 00 (twelve) Medical mcg/actuati hours. Branch on inhaler Rinse mouth after each use. levalbutero 2020-09 Yes [id number] .63mg Inhale [facility] l 0.63 mg/3 1-09 0.63 mg 3 ity of mL 00:00: (three) [place] nebulizer 00 times Medical solution daily as Branch needed for Wheezing or Shortness of Breath. losartan 50 2020-09 Yes [id number] 50mg Take 1 [facility] mg tablet 1-09 tablet by ity o f 00:00: mouth 2 [place] 00 (two) Medical times Branch daily. clotrimazol 2020-09 Yes [id number] Apply to [facility] e-betametha 1-09 area(s) 2 ity of sone cream 00:00: (two) [place] 00 times Medical daily. Branch cyclobenzap 2020-09 Yes [id number] TAKE 1 [facility] rine 5 mg 1-09 TABLET BY ity o f tablet 00:00: MOUTH [place] 00 EVERY 8 Medical HOURS Branch NEEDED econazole 2020-09 Yes [id number] Apply to [facility] nitrate 1 % 1-09 area(s) 2 ity of cream 00:00: (two) [place] 00 times Medical daily. Branch albuterol 2020-09 Yes [id number] 2{puff} Inhale 2 [facility] (PROAIR 1-09 Puffs ity of HFA) 90 00:00: every 6 [place] mcg/actuati 00 (six) Medical on inhaler hours as Branc h needed for Wheezing or Shortness of Breath. triamcinolo 2020-09 Yes [id number] Apply to [facility] ne 0.025 % 1-09 area(s) 3 ity of ointment 00:00: (three) [place] 00 times Medical daily. For Branch itching diltiazem 2020-09 Yes [id number] 120mg Take 1 [facility] n[facility] (CARTIA XT) -09 capsule by it y of 120 mg 24 00:00: mouth 2 [place] hr capsule 00 (two) Medical times Branch daily. cyanocobala 2020-09 Yes [id number] 1000ug 1 mL by [facility] min 1,000 -09 Intramuscu ity of mcg/mL 00:00: lar route [place] injection 00 every 2 Medical (two) Branch weeks. levothyroxi 2020-09 Yes [id number] 50ug Take 1 [facility] ne 50 mcg 10-04 tablet by ity o f tablet 00:00: mouth [place] 00 every Medical morning. Branch fluticasone 2020-09 Yes [id number] 2{puff} Inhale 2 [facility] propionate -09 Puffs ity of (FLOVENT 00:00: every 12 [place] HFA) 110 00 (twelve) Medical mcg/actuati hours. Branch on inhaler Rinse mouth after each use. levalbutero 2020-09 Yes [id number] .63mg Inhale [facility] l 0.63 mg/3 -09 0.63 mg 3 ity of mL 00:00: (three) [place] nebulizer 00 times Medical solution daily as Branch needed for Wheezing or Shortness of Breath. losartan 50 2020-09 Yes [id number] 50mg Take 1 [facility] mg tablet 09 tablet by ity o f 00:00: mouth 2 [place] 00 (two) Medical times Branch daily. clotrimazol 2020-09 Yes [id number] Apply to [facility] e-betametha 10-04 area(s) 2 ity of sone cream 00:00: (two) [place] 00 times Medical daily. Branch cyclobenzap 2020-09 Yes [id number] TAKE 1 [facility] rine 5 mg -09 TABLET BY ity o f tablet 00:00: MOUTH [place] 00 EVERY 8 Medical HOURS Branch NEEDED econazole 2020-09 Yes [id number] Apply to [facility] nitrate 1 % 10-04 area(s) 2 ity of cream 00:00: (two) [place] 00 times Medical daily. Branch albuterol 2020-09 Yes [id number] 2{puff} Inhale 2 [facility] (PROAIR 1-09 Puffs ity of HFA) 90 00:00: every 6 [place] mcg/actuati 00 (six) Medical on inhaler hours as Branc h needed for Wheezing or Shortness of Breath. triamcinolo 2020-09 Yes [id number] Apply to [facility] ne 0.025 % 09 area(s) 3 ity of ointment 00:00: (three) [place] 00 times Medical daily. For Branch itching diltiazem 2020-09 Yes [id number] 120mg Take 1 [facility] n[facility] (CARTIA XT) 09 capsule by it y of 120 mg 24 00:00: mouth 2 [place] hr capsule 00 (two) Medical times Branch daily. cyanocobala 2020-09 Yes [id number] 1000ug 1 mL by [facility] min 1,000 -09 Intramuscu ity of mcg/mL 00:00: lar route [place] injection 00 every 2 Medical (two) Branch weeks. levothyroxi 2020-09 Yes [id number] 50ug Take 1 [facility] ne 50 mcg 10-04 tablet by ity o f tablet 00:00: mouth [place] 00 every Medical morning. Branch fluticasone 2020-09 Yes [id number] 2{puff} Inhale 2 [facility] propionate 1-09 Puffs ity of (FLOVENT 00:00: every 12 [place] HFA) 110 00 (twelve) Medical mcg/actuati hours. Branch on inhaler Rinse mouth after each use. levalbutero 2020-09 Yes [id number] .63mg Inhale [facility] l 0.63 mg/3 1-09 0.63 mg 3 ity of mL 00:00: (three) [place] nebulizer 00 times Medical solution daily as Branch needed for Wheezing or Shortness of Breath. losartan 50 2020-09 Yes [id number] 50mg Take 1 [facility] mg tablet -09 tablet by ity o f 00:00: mouth 2 [place] 00 (two) Medical times Branch daily. clotrimazol 2020-09 Yes [id number] Apply to [facility] e-betametha -09 area(s) 2 ity of sone cream 00:00: (two) [place] 00 times Medical daily. Branch cyclobenzap 2020-09 Yes [id number] TAKE 1 [facility] rine 5 mg -09 TABLET BY ity o f tablet 00:00: MOUTH [place] 00 EVERY 8 Medical HOURS Branch NEEDED econazole 2020-09 Yes [id number] Apply to [facility] nitrate 1 % 1-09 area(s) 2 ity of cream 00:00: (two) [place] 00 times Medical daily. Branch albuterol 2020-09 Yes [id number] 2{puff} Inhale 2 [facility] (PROAIR 1-09 Puffs ity of HFA) 90 00:00: every 6 [place] mcg/actuati 00 (six) Medical on inhaler hours as Branc h needed for Wheezing or Shortness of Breath. triamcinolo 2020-09 Yes [id number] Apply to [facility] ne 0.025 % 1-09 area(s) 3 ity of ointment 00:00: (three) [place] 00 times Medical daily. For Branch itching diltiazem 2020-09 Yes [id number] 120mg Take 1 [facility] n[facility] (CARTIA XT) 1-09 capsule by it y of 120 mg 24 00:00: mouth 2 [place] hr capsule 00 (two) Medical times Branch daily. cyanocobala 2020-09 Yes [id number] 1000ug 1 mL by [facility] min 1,000 1-09 Intramuscu ity of mcg/mL 00:00: lar route [place] injection 00 every 2 Medical (two) Branch weeks. levothyroxi 2020-09 Yes [id number] 50ug Take 1 [facility] ne 50 mcg 1-09 tablet by ity o f tablet 00:00: mouth [place] 00 every Medical morning. Branch fluticasone 2020-09 Yes [id number] 2{puff} Inhale 2 [facility] propionate 1-09 Puffs ity of (FLOVENT 00:00: every 12 [place] HFA) 110 00 (twelve) Medical mcg/actuati hours. Branch on inhaler Rinse mouth after each use. levalbutero 2020-09 Yes [id number] .63mg Inhale [facility] l 0.63 mg/3 1-09 0.63 mg 3 ity of mL 00:00: (three) [place] nebulizer 00 times Medical solution daily as Branch needed for Wheezing or Shortness of Breath. losartan 50 2020-09 Yes [id number] 50mg Take 1 [facility] mg tablet 1-09 tablet by ity o f 00:00: mouth 2 [place] 00 (two) Medical times Branch daily. clotrimazol 2020-09 Yes [id number] Apply to [facility] e-betametha 10-04 area(s) 2 ity of sone cream 00:00: (two) [place] 00 times Medical daily. Branch cyclobenzap 2020-09 Yes [id number] TAKE 1 [facility] rine 5 mg 10-04 TABLET BY ity o f tablet 00:00: MOUTH [place] 00 EVERY 8 Medical HOURS Branch NEEDED econazole 2020-09 Yes [id number] Apply to [facility] nitrate 1 % 10-04 area(s) 2 ity of cream 00:00: (two) [place] 00 times Medical daily. Branch albuterol 2020-09 Yes [id number] 2{puff} Inhale 2 [facility] (PROAIR 10-04 Puffs ity of HFA) 90 00:00: every 6 [place] mcg/actuati 00 (six) Medical on inhaler hours as Branc h needed for Wheezing or Shortness of Breath. triamcinolo 2020-09 Yes [id number] Apply to [facility] ne 0.025 % 10-04 area(s) 3 ity of ointment 00:00: (three) [place] 00 times Medical daily. For Branch itching diltiazem 2020-09 Yes [id number] 120mg Take 1 [facility] n[facility] (CARTIA XT) 10-04 capsule by it y of 120 mg 24 00:00: mouth 2 [place] hr capsule 00 (two) Medical times Branch daily. cyclobenzap 2020-09- No [id number] TAKE 1 [facility] rine 5 mg 10-0424 TABLET BY ity of tablet 00:00: 00:00 MOUTH [place] 00 :00 EVERY 8 Medical HOURS Branch NEEDED cyclobenzap 2020-09- No [id number] TAKE 1 [facility] rine 5 mg 10-0424 TABLET BY ity of tablet 00:00: 00:00 MOUTH [place] 00 :00 EVERY 8 Medical HOURS Branch NEEDED cyclobenzap 2020-09- No [id number] TAKE 1 [facility] rine 5 mg 10-0424 TABLET BY ity of tablet 00:00: 00:00 MOUTH [place] 00 :00 EVERY 8 Medical HOURS Branch NEEDED cyanocobala 2020-09- No [id number] 1000ug 1 mL by [facility] min 1,000 10-04 11-30 Intramuscu ity of mcg/mL 00:00: 00:00 lar route [place] injection 00 :00 every 2 Medical (two) Branch weeks. fluticasone 2020-09- No [id number] 2{puff} Inhale 2 [facility] propionate 10-04 Puffs ity of (FLOVENT 00:00: 00:00 every 12 [place] HFA[place] 110 00 :00 (twelve) Medical mcg/actuati hours. Branch on inhaler Rinse mouth after each use. clotrimazol 2020-09- No [id number] Apply to [facility] e-betametha 10-04 area(s) 2 it y of sone cream 00:00: 00:00 (two) [place] 00 :00 times Medical daily. Branch econazole 2020-09- No [id number] Apply to [facility] nitrate 1 % 10-04 area(s) 2 it y of cream 00:00: 00:00 (two) [place] 00 :00 times Medical daily. Branch triamcinolo 2020-09- No [id number] Apply to [facility] ne 0.025 % 10-04 area(s) 3 ity of ointment 00:00: 00:00 (three) [place] 00 :00 times Medical daily. For Branch itching fluticasone 2020-09- No [id number] 2{puff} Inhale 2 [facility] propionate 10-04 Puffs ity of (FLOVENT 00:00: 00:00 every 12 [place] HFA[place] 110 00 :00 (twelve) Medical mcg/actuati hours. Branch on inhaler Rinse mouth after each use. clotrimazol 2020-09- No [id number] Apply to [facility] e-betametha 10-04 area(s) 2 it y of sone cream 00:00: 00:00 (two) [place] 00 :00 times Medical daily. Branch econazole 2020-09- No [id number] Apply to [facility] nitrate 1 % 10-04 area(s) 2 it y of cream 00:00: 00:00 (two) [place] 00 :00 times Medical daily. Branch triamcinolo 2020-09- No [id number] Apply to [facility] ne 0.025 % 10-04 area(s) 3 ity of ointment 00:00: 00:00 (three) [place] 00 :00 times Medical daily. For Branch itching levothyroxi 2020-09- No [id number] 50ug Take 1 [facility] ne 50 mcg 10-04 tablet by ity of tablet 00:00: 00:00 mouth [place] 00 :00 every Medical morning. Branch losartan 50 2020-09- No [id number] 50mg Take 1 [facility] mg tablet 10-04 tablet by ity of 00:00: 00:00 mouth 2 [place] 00 :00 (two) Medical times Branch daily. diltiazem 2020-09- No [id number] 120mg Take 1 [facility] (CARTIA XT) 10-04 capsule by i ty [facility] 120 mg 24 00:00: [place] :[place] (two) [facility] times [facility] daily. rosuvastati 2020-09- No [id number] 10mg Take 1 [facility] n 10 mg 10-04 tablet by [facility] of tablet 00:00: 00:00 mouth at [place] 00 :00 bedtime. Medical Branch rosuvastati 2020-09- No [id number] 10mg Take 1 [facility] n 10 mg 10-04 tablet by [facility] of tablet 00:00: 00:00 mouth at [place] 00 :00 bedtime. Medical Branch proMETHazin 2019- Yes TAKE 1 [facility] ers e 25 mg 0-22 TABLET BY ity of tablet 00:00: MOUTH [place] 00 EVERY 6 Medical HOURS Branch NEEDED FOR NAUSEA proMETHazin 2019-09 Yes TAKE 1 [facility] ers e 25 mg 0-22 TABLET BY ity of tablet 00:00: MOUTH [place] 00 EVERY 6 Medical HOURS Branch NEEDED FOR NAUSEA proMETHazin 2019- Yes TAKE 1 [facility] 25 mg 0-22 TABLET BY ity of tablet 00:00: MOUTH [place] 00 EVERY 6 Medical HOURS Branch NEEDED [...] TAKE 1 [facility] vers e 25 mg 022 06-13 TABLET BY ity of tablet 00:00: [...] 120 1-16 ity of mg Tab 00:00: [place] 00 Medical Branch Ginkgo 2019-0 Yes Univers [...] 120 1-16 ity of mg Tab 00:00: [place] 00 Medical Branch Ginkgo 2019-0 Yes [facility] [...] 00 :00 Medical Branch FERROUS 2018-0 Yes [id number] TAKE ONE [facility] vers SULFATE 325 8-13 TABLET BY ity of mg (65 mg 00:00: MOUTH [place] iron) 00 THREE Medical tablet TIMES Branch DAILY WITH MEALS FERROUS 0 Yes [id number] TAKE ONE [facility] SULFATE 325 8-13 TABLET BY ity of mg (65 mg 00:00: MOUTH [place] iron) 00 THREE Medical tablet TIMES Branch DAILY WITH MEALS FERROUS Yes [id number] TAKE ONE [facility] SULFATE 325 8-13 TABLET BY ity of mg (65 mg 00:00: MOUTH [place] iron) 00 THREE Medical tablet TIMES Branch DAILY WITH MEALS FERROUS 0 Yes [id number] TAKE ONE [facility] SULFATE 325 8-13 TABLET BY ity of mg (65 mg 00:00: MOUTH [place] iron) 00 THREE Medical tablet TIMES Branch DAILY WITH MEALS FERROUS Yes [id number] TAKE ONE [facility] SULFATE 325 8-13 TABLET BY ity of mg (65 mg 00:00: MOUTH [place] iron) 00 THREE Medical tablet TIMES Branch DAILY WITH MEALS FERROUS Yes [id number] TAKE ONE [facility] SULFATE 325 8-13 TABLET BY ity of mg (65 mg 00:00: MOUTH [place] iron) 00 THREE Medical tablet TIMES Branch DAILY WITH MEALS FERROUS Yes [id number] TAKE ONE [facility] SULFATE 325 8-13 TABLET BY ity of mg (65 mg 00:00: MOUTH [place] iron) 00 THREE Medical tablet TIMES Branch DAILY WITH MEALS FERROUS Yes [id number] TAKE ONE [facility] SULFATE 325 8-13 TABLET BY ity of mg (65 mg 00:00: MOUTH [place] iron) 00 THREE Medical tablet TIMES Branch DAILY WITH MEALS FERROUS Yes [id number] TAKE ONE [facility] SULFATE 325 8-13 TABLET BY ity of mg (65 mg 00:00: MOUTH [place] iron) 00 THREE Medical tablet TIMES Branch DAILY WITH MEALS FERROUS Yes [id number] TAKE ONE [facility] SULFATE 325 8-13 TABLET BY ity of mg (65 mg 00:00: MOUTH [place] iron) 00 THREE Medical tablet TIMES Branch DAILY WITH MEALS FERROUS Yes [id number] TAKE ONE [facility] SULFATE 325 8-13 TABLET BY ity of mg (65 mg 00:00: MOUTH [place] iron) 00 THREE Medical tablet TIMES Branch DAILY WITH MEALS FERROUS Yes [id number] TAKE ONE [facility] SULFATE 325 8-13 TABLET BY ity of mg (65 mg 00:00: MOUTH [place] iron) 00 THREE Medical tablet TIMES Branch DAILY WITH MEALS FERROUS Yes [id number] TAKE ONE [facility] SULFATE 325 8-13 TABLET BY ity of mg (65 mg 00:00: MOUTH [place] iron) 00 THREE Medical tablet TIMES Branch DAILY WITH MEALS FERROUS Yes [id number] TAKE ONE [facility] SULFATE 325 8-13 TABLET BY ity of mg (65 mg 00:00: MOUTH [place] iron) 00 THREE Medical tablet TIMES Branch DAILY WITH MEALS FERROUS Yes [id number] TAKE ONE [facility] SULFATE 325 8-13 TABLET BY ity of mg (65 mg 00:00: MOUTH [place] iron) 00 THREE Medical tablet TIMES Branch DAILY WITH MEALS FERROUS Yes [id number] TAKE ONE [facility] SULFATE 325 8-13 TABLET BY ity of mg (65 mg 00:00: MOUTH [place] iron) 00 THREE Medical tablet TIMES Branch DAILY WITH MEALS FERROUS Yes [id number] TAKE ONE [facility] SULFATE 325 8-13 TABLET BY ity of mg (65 mg 00:00: MOUTH [place] iron) 00 THREE Medical tablet TIMES Branch DAILY WITH MEALS FERROUS Yes [id number] TAKE ONE [facility] SULFATE 325 8-13 TABLET BY ity of mg (65 mg 00:00: MOUTH [place] iron) 00 THREE Medical tablet TIMES Branch DAILY WITH MEALS FERROUS Yes [id number] TAKE ONE [facility] SULFATE 325 8-13 TABLET BY ity of mg (65 mg 00:00: MOUTH [place] iron) 00 THREE Medical tablet TIMES Branch DAILY WITH MEALS FERROUS Yes [id number] TAKE ONE [facility] SULFATE 325 8-13 TABLET BY ity of mg (65 mg 00:00: MOUTH [place] iron) 00 THREE Medical tablet TIMES Branch DAILY WITH MEALS FERROUS Yes [id number] TAKE ONE [facility] SULFATE 325 8-13 TABLET BY ity of mg (65 mg 00:00: MOUTH [place] iron) 00 THREE Medical tablet TIMES Branch DAILY WITH MEALS FERROUS Yes [id number] TAKE ONE [facility] SULFATE 325 8-13 TABLET BY ity of mg (65 mg 00:00: MOUTH [place] iron) 00 THREE Medical tablet TIMES Branch DAILY WITH MEALS FERROUS Yes [id number] TAKE ONE [facility] SULFATE 325 8-13 TABLET BY ity of mg (65 mg 00:00: MOUTH [place] iron) 00 THREE Medical tablet TIMES Branch DAILY WITH MEALS FERROUS Yes [id number] TAKE ONE [facility] SULFATE 325 8-13 TABLET BY ity of mg (65 mg 00:00: MOUTH [place] iron) 00 THREE Medical tablet TIMES Branch DAILY WITH MEALS FERROUS Yes [id number] TAKE ONE [facility] SULFATE 325 8-13 TABLET BY ity of mg (65 mg 00:00: MOUTH [place] iron) 00 THREE Medical tablet TIMES Branch DAILY WITH MEALS FERROUS Yes [id number] TAKE ONE [facility] SULFATE 325 8-13 TABLET BY ity of mg (65 mg 00:00: MOUTH [place] iron) 00 THREE Medical tablet TIMES Branch DAILY WITH MEALS FERROUS Yes [id number] TAKE ONE [facility] SULFATE 325 8-13 TABLET BY ity of mg (65 mg 00:00: MOUTH [place] iron) 00 THREE Medical tablet TIMES Branch DAILY WITH MEALS FERROUS Yes [id number] TAKE ONE [facility] SULFATE 325 8-13 TABLET BY ity of mg (65 mg 00:00: MOUTH [place] iron) 00 THREE Medical tablet TIMES Branch DAILY WITH MEALS FERROUS Yes [id number] TAKE ONE [facility] SULFATE 325 8-13 TABLET BY ity of mg (65 mg 00:00: MOUTH [place] iron) 00 THREE Medical tablet TIMES Branch DAILY WITH MEALS FERROUS Yes [id number] TAKE ONE [facility] SULFATE 325 8-13 TABLET BY ity of mg (65 mg 00:00: MOUTH [place] iron) 00 THREE Medical tablet TIMES Branch DAILY WITH MEALS FERROUS Yes [id number] TAKE ONE [facility] SULFATE 325 8-13 TABLET BY ity of mg (65 mg 00:00: MOUTH [place] iron) 00 THREE Medical tablet TIMES Branch DAILY WITH MEALS FERROUS Yes [id number] TAKE ONE [facility] SULFATE 325 8-13 TABLET BY ity of mg (65 mg 00:00: MOUTH [place] iron) 00 THREE Medical tablet TIMES Branch DAILY WITH MEALS FERROUS Yes [id number] TAKE ONE [facility] SULFATE 325 8-13 TABLET BY ity of mg (65 mg 00:00: MOUTH [place] iron) 00 THREE Medical tablet TIMES Branch DAILY WITH MEALS FERROUS Yes [id number] TAKE ONE [facility] SULFATE 325 8-13 TABLET BY ity of mg (65 mg 00:00: MOUTH [place] iron) 00 THREE Medical tablet TIMES Branch DAILY WITH MEALS FERROUS Yes [id number] TAKE ONE [facility] SULFATE 325 8-13 TABLET BY ity of mg (65 mg 00:00: MOUTH [place] iron) 00 THREE Medical tablet TIMES Branch DAILY WITH MEALS FERROUS Yes [id number] TAKE ONE [facility] SULFATE 325 8-13 TABLET BY ity of mg (65 mg 00:00: MOUTH [place] iron) 00 THREE Medical tablet TIMES Branch DAILY WITH MEALS FERROUS Yes [id number] TAKE ONE [facility] SULFATE 325 8-13 TABLET BY ity of mg (65 mg 00:00: MOUTH [place] iron) 00 THREE Medical tablet TIMES Branch DAILY WITH MEALS FERROUS Yes [id number] TAKE ONE [facility] SULFATE 325 8-13 TABLET BY ity of mg (65 mg 00:00: MOUTH [place] iron) 00 THREE Medical tablet TIMES Branch DAILY WITH MEALS FERROUS Yes [id number] TAKE ONE [facility] SULFATE 325 8-13 TABLET BY ity of mg (65 mg 00:00: MOUTH [place] iron) 00 THREE Medical tablet TIMES Branch DAILY WITH MEALS FERROUS Yes [id number] TAKE ONE [facility] SULFATE 325 8-13 TABLET BY ity of mg (65 mg 00:00: MOUTH [place] iron) 00 THREE Medical tablet TIMES Branch DAILY WITH MEALS FERROUS Yes [id number] TAKE ONE [facility] SULFATE 325 8-13 TABLET BY ity of mg (65 mg 00:00: MOUTH [place] iron) 00 THREE Medical tablet TIMES Branch DAILY WITH MEALS FERROUS Yes [id number] TAKE ONE [facility] SULFATE 325 8-13 TABLET BY ity of mg (65 mg 00:00: MOUTH [place] iron) 00 THREE Medical tablet TIMES Branch DAILY WITH MEALS FERROUS Yes [id number] TAKE ONE [facility] SULFATE 325 8-13 TABLET BY ity of mg (65 mg 00:00: MOUTH [place] iron) 00 THREE Medical tablet TIMES Branch DAILY WITH MEALS FERROUS Yes [id number] TAKE ONE [facility] SULFATE 325 8-13 TABLET BY ity of mg (65 mg 00:00: MOUTH [place] iron) 00 THREE Medical tablet TIMES Branch DAILY WITH MEALS FERROUS Yes [id number] TAKE ONE [facility] SULFATE 325 8-13 TABLET BY ity of mg (65 mg 00:00: MOUTH [place] iron) 00 THREE Medical tablet TIMES Branch DAILY WITH MEALS FERROUS Yes [id number] TAKE ONE [facility] SULFATE 325 8-13 TABLET BY ity of mg (65 mg 00:00: MOUTH [place] iron) 00 THREE Medical tablet TIMES Branch DAILY WITH MEALS FERROUS Yes [id number] TAKE ONE [facility] SULFATE 325 8-13 TABLET BY ity of mg (65 mg 00:00: MOUTH [place] iron) 00 THREE Medical tablet TIMES Branch DAILY WITH MEALS FERROUS Yes [id number] TAKE ONE [facility] SULFATE 325 8-13 TABLET BY ity of mg (65 mg 00:00: MOUTH [place] iron) 00 THREE Medical tablet TIMES Branch DAILY WITH MEALS FERROUS Yes [id number] TAKE ONE [facility] SULFATE 325 8-13 TABLET BY ity of mg (65 mg 00:00: MOUTH [place] iron) 00 THREE Medical tablet TIMES Branch DAILY WITH MEALS FERROUS Yes [id number] TAKE ONE [facility] SULFATE 325 8-13 TABLET BY ity of mg (65 mg 00:00: MOUTH [place] iron) 00 THREE Medical tablet TIMES Branch DAILY WITH MEALS FERROUS Yes [id number] TAKE ONE [facility] SULFATE 325 8-13 TABLET BY ity of mg (65 mg 00:00: MOUTH [place] iron) 00 THREE Medical tablet TIMES Branch DAILY WITH MEALS FERROUS Yes [id number] TAKE ONE [facility] SULFATE 325 8-13 TABLET BY ity of mg (65 mg 00:00: MOUTH [place] iron) 00 THREE Medical tablet TIMES Branch DAILY WITH MEALS FERROUS Yes [id number] TAKE ONE [facility] SULFATE 325 8-13 TABLET BY ity of mg (65 mg 00:00: MOUTH [place] iron) 00 THREE Medical tablet TIMES Branch DAILY WITH MEALS FERROUS Yes [id number] TAKE ONE [facility] vers SULFATE 325 8-13 TABLET BY ity of mg (65 mg 00:00: MOUTH [place] iron) 00 THREE Medical tablet TIMES Branch DAILY WITH MEALS FERROUS Yes [id number] TAKE ONE [facility] SULFATE 325 8-13 TABLET BY ity of mg (65 mg 00:00: MOUTH [place] iron) 00 THREE Medical tablet TIMES Branch DAILY WITH MEALS FERROUS Yes [id number] TAKE ONE [facility] SULFATE 325 8-13 TABLET BY ity of mg (65 mg 00:00: MOUTH [place] iron) 00 THREE Medical tablet TIMES Branch DAILY WITH MEALS FERROUS Yes [id number] TAKE ONE [facility] SULFATE 325 8-13 TABLET BY ity of mg (65 mg 00:00: MOUTH [place] iron) 00 THREE Medical tablet TIMES Branch DAILY WITH MEALS FERROUS Yes [id number] TAKE ONE [facility] SULFATE 325 8-13 TABLET BY ity of mg (65 mg 00:00: MOUTH [place] iron) 00 THREE Medical tablet TIMES Branch DAILY WITH MEALS FERROUS Yes [id number] TAKE ONE [facility] SULFATE 325 8-13 TABLET BY ity of mg (65 mg 00:00: MOUTH [place] iron) 00 THREE Medical tablet TIMES Branch DAILY WITH MEALS FERROUS Yes [id number] TAKE ONE [facility] SULFATE 325 8-13 TABLET BY ity of mg (65 mg 00:00: MOUTH [place] iron) 00 THREE Medical tablet TIMES Branch DAILY WITH MEALS FERROUS Yes [id number] TAKE ONE [facility] SULFATE 325 8-13 TABLET BY ity of mg (65 mg 00:00: MOUTH [place] iron) 00 THREE Medical tablet TIMES Branch DAILY WITH MEALS FERROUS Yes [id number] TAKE ONE [facility] SULFATE 325 8-13 TABLET BY ity of mg (65 mg 00:00: MOUTH [place] iron) 00 THREE Medical tablet TIMES Branch DAILY WITH MEALS FERROUS Yes [id number] TAKE ONE [facility] SULFATE 325 8-13 TABLET BY ity of mg (65 mg 00:00: MOUTH [place] iron) 00 THREE Medical tablet TIMES Branch DAILY WITH MEALS FERROUS Yes [id number] TAKE ONE [facility] SULFATE 325 8-13 TABLET BY ity of mg (65 mg 00:00: MOUTH [place] iron) 00 THREE Medical tablet TIMES Branch DAILY WITH MEALS FERROUS Yes [id number] TAKE ONE [facility] SULFATE 325 8-13 TABLET BY ity of mg (65 mg 00:00: MOUTH [place] iron) 00 THREE Medical tablet TIMES Branch DAILY WITH MEALS FERROUS Yes [id number] TAKE ONE [facility] SULFATE 325 8-13 TABLET BY ity of mg (65 mg 00:00: MOUTH [place] iron) 00 THREE Medical tablet TIMES Branch DAILY WITH MEALS FERROUS Yes [id number] TAKE ONE [facility] SULFATE 325 8-13 TABLET BY ity of mg (65 mg 00:00: MOUTH [place] iron) 00 THREE Medical tablet TIMES Branch DAILY WITH MEALS FERROUS Yes [id number] TAKE ONE [facility] vers SULFATE 325 8-13 TABLET BY ity of mg (65 mg 00:00: MOUTH [place] iron) 00 THREE Medical tablet TIMES Branch DAILY WITH MEALS FERROUS Yes [id number] TAKE ONE [facility] SULFATE 325 8-13 TABLET BY ity of mg (65 mg 00:00: MOUTH [place] iron) 00 THREE Medical tablet TIMES Branch DAILY WITH MEALS FERROUS Yes [id number] TAKE ONE [facility] SULFATE 325 8-13 TABLET BY ity of mg (65 mg 00:00: MOUTH [place] iron) 00 THREE Medical tablet TIMES Branch DAILY WITH MEALS FERROUS Yes [id number] TAKE ONE [facility] SULFATE 325 8-13 TABLET BY ity of mg (65 mg 00:00: MOUTH [place] iron) 00 THREE Medical tablet TIMES Branch DAILY WITH MEALS FERROUS Yes [id number] TAKE ONE [facility] SULFATE 325 8-13 TABLET BY ity of mg (65 mg 00:00: MOUTH [place] iron) 00 THREE Medical tablet TIMES Branch DAILY WITH MEALS FERROUS Yes [id number] TAKE ONE [facility] SULFATE 325 8-13 TABLET BY ity of mg (65 mg 00:00: MOUTH [place] iron) 00 THREE Medical tablet TIMES Branch DAILY WITH MEALS FERROUS Yes [id number] TAKE ONE [facility] vers SULFATE 325 8-13 TABLET BY ity of mg (65 mg 00:00: MOUTH [place] iron) 00 THREE Medical tablet TIMES Branch DAILY WITH MEALS FERROUS Yes [id number] TAKE ONE [facility] SULFATE 325 8-13 TABLET BY ity of mg (65 mg 00:00: MOUTH [place] iron) 00 THREE Medical tablet TIMES Branch DAILY WITH MEALS FERROUS Yes [id number] TAKE ONE [facility] SULFATE 325 8-13 TABLET BY ity of mg (65 mg 00:00: MOUTH [place] iron) 00 THREE Medical tablet TIMES Branch DAILY WITH MEALS FERROUS Yes [id number] TAKE ONE [facility] SULFATE 325 8-13 TABLET BY ity of mg (65 mg 00:00: MOUTH [place] iron) 00 THREE Medical tablet TIMES Branch DAILY WITH MEALS FERROUS 2022- No [id number] TAKE ONE [facility] SULFATE 325 8-13 01-24 TABLET BY it y of mg (65 mg 00:00: 00:00 MOUTH [place] [facility]) 00 :00 THREE Medical tablet TIMES Branch DAILY WITH MEALS FERROUS 3- No [id number] TAKE ONE [facility] SULFATE 325 8-13 01-24 TABLET BY it y of mg (65 mg 00:00: 00:00 MOUTH [place] iron) 00 :00 THREE Medical tablet TIMES Branch DAILY WITH MEALS FERROUS 3- No [id number] TAKE ONE [facility] SULFATE 325 8-13 01-24 TABLET BY it y of mg (65 mg 00:00: 00:00 MOUTH [place] [facility]) 00 :00 THREE Medical tablet TIMES Branch DAILY WITH MEALS coQ10, Yes [id number] 1{capsu Take 1 U nivers ubiquinol, 1-16 le} capsule by ity of 100 mg Cap 00:00: mouth [place] 00 daily. Medical Branch coQ10, Yes [id number] 1{capsu Take 1 U nivers ubiquinol, 1-16 le} capsule by ity of 100 mg Cap 00:00: mouth [place] 00 daily. Medical Branch coQ10, Yes [id number] 1{capsu Take 1 U nivers ubiquinol, 1-16 le} capsule by ity of 100 mg Cap 00:00: mouth [place] 00 daily. Medical Branch coQ10, Yes [id number] 1{capsu Take 1 U nivers ubiquinol, 1-16 le} capsule by ity of 100 mg Cap 00:00: mouth [place] 00 daily. Medical Branch coQ10, Yes [id number] 1{capsu Take 1 U nivers ubiquinol, 1-16 le} capsule by ity of 100 mg Cap 00:00: mouth [place] 00 daily. Medical Branch coQ10, Yes [id number] 1{capsu Take 1 U nivers ubiquinol, 1-16 le} capsule by ity of 100 mg Cap 00:00: mouth [place] 00 daily. Medical Branch coQ10, Yes [id number] 1{capsu Take 1 U nivers ubiquinol, 1-16 le} capsule by ity of 100 mg Cap 00:00: mouth [place] 00 daily. Medical Branch coQ10, Yes [id number] 1{capsu Take 1 U nivers ubiquinol, 1-16 le} capsule by ity of 100 mg Cap 00:00: mouth [place] 00 daily. Medical Branch coQ10, Yes [id number] 1{capsu Take 1 U nivers ubiquinol, 1-16 le} capsule by ity of 100 mg Cap 00:00: mouth [place] 00 daily. Medical Branch coQ10, Yes [id number] 1{capsu Take 1 U nivers ubiquinol, 1-16 le} capsule by ity of 100 mg Cap 00:00: mouth [place] 00 daily. Medical Branch coQ10, Yes [id number] 1{capsu Take 1 U nivers ubiquinol, 1-16 le} capsule by ity of 100 mg Cap 00:00: mouth [place] 00 daily. Medical Branch coQ10, Yes [id number] 1{capsu Take 1 U nivers ubiquinol, 1-16 le} capsule by ity of 100 mg Cap 00:00: mouth [place] 00 daily. Medical Branch coQ10, Yes [id number] 1{capsu Take 1 U nivers ubiquinol, 1-16 le} capsule by ity of 100 mg Cap 00:00: mouth [place] 00 daily. Medical Branch coQ10, Yes [id number] 1{capsu Take 1 U nivers ubiquinol, 1-16 le} capsule by ity of 100 mg Cap 00:00: mouth [place] 00 daily. Medical Branch coQ10, Yes [id number] 1{capsu Take 1 U nivers ubiquinol, 1-16 le} capsule by ity of 100 mg Cap 00:00: mouth [place] 00 daily. Medical Branch coQ10, Yes [id number] 1{capsu Take 1 U nivers ubiquinol, 1-16 le} capsule by ity of 100 mg Cap 00:00: mouth [place] 00 daily. Medical Branch coQ10, Yes [id number] 1{capsu Take 1 U nivers ubiquinol, 1-16 le} capsule by ity of 100 mg Cap 00:00: mouth [place] 00 daily. Medical Branch coQ10, Yes [id number] 1{capsu Take 1 U nivers ubiquinol, 1-16 le} capsule by ity of 100 mg Cap 00:00: mouth [place] 00 daily. [facility] coQ10, Yes [id number] 1{capsu Take 1 U nivers ubiquinol, 1-16 le} capsule by ity of 100 mg Cap 00:00: mouth [place] 00 daily. [facility] Branch coQ10, Yes [id number] 1{capsu Take 1 U nivers ubiquinol, 1-16 le} capsule by ity of 100 mg Cap 00:00: mouth [place] 00 daily. [facility] Branch coQ10, Yes [id number] 1{capsu Take 1 U nivers ubiquinol, 1-16 le} capsule by ity of 100 mg Cap 00:00: mouth [place] 00 daily. Medical Branch coQ10, Yes [id number] 1{capsu Take 1 U nivers ubiquinol, 1-16 le} capsule by ity of 100 mg Cap 00:00: mouth [place] 00 daily. Medical Branch coQ10, Yes [id number] 1{capsu Take 1 U nivers ubiquinol, 1-16 le} capsule by ity of 100 mg Cap 00:00: mouth [place] 00 daily. Medical Branch coQ10, Yes [id number] 1{capsu Take 1 U nivers ubiquinol, 1-16 le} capsule by ity of 100 mg Cap 00:00: mouth [place] 00 daily. [facility] Branch coQ10, Yes [id number] 1{capsu Take 1 U nivers ubiquinol, 1-16 le} capsule by ity of 100 mg Cap 00:00: mouth [place] 00 daily. Medical Branch coQ10, Yes [id number] 1{capsu Take 1 U nivers ubiquinol, 1-16 le} capsule by ity of 100 mg Cap 00:00: mouth [place] 00 daily. Medical Branch coQ10, Yes [id number] 1{capsu Take 1 U nivers ubiquinol, 1-16 le} capsule by ity of 100 mg Cap 00:00: mouth [place] 00 daily. Medical Branch coQ10, Yes [id number] 1{capsu Take 1 U nivers ubiquinol, 1-16 le} capsule by ity of 100 mg Cap 00:00: mouth [place] 00 daily. Medical Branch coQ10, Yes [id number] 1{capsu Take 1 U nivers ubiquinol, 1-16 le} capsule by ity of 100 mg Cap 00:00: mouth [place] 00 daily. [facility] Branch coQ10, Yes [id number] 1{capsu Take 1 U nivers ubiquinol, 1-16 le} capsule by ity of 100 mg Cap 00:00: mouth [place] 00 daily. [facility] Branch coQ10, Yes [id number] 1{capsu Take 1 U nivers ubiquinol, 1-16 le} capsule by ity of 100 mg Cap 00:00: mouth [place] 00 daily. Medical Branch coQ10, Yes [id number] 1{capsu Take 1 U nivers ubiquinol, 1-16 le} capsule by ity of 100 mg Cap 00:00: mouth [place] 00 daily. Medical Branch coQ10, Yes [id number] 1{capsu Take 1 U nivers ubiquinol, 1-16 le} capsule by ity of 100 mg Cap 00:00: mouth [place] 00 daily. Medical Branch coQ10, Yes [id number] 1{capsu Take 1 U nivers ubiquinol, 1-16 le} capsule by ity of 100 mg Cap 00:00: mouth [place] 00 daily. Medical Branch coQ10, Yes [id number] 1{capsu Take 1 U nivers ubiquinol, 1-16 le} capsule by ity of 100 mg Cap 00:00: mouth [place] 00 daily. [facility] Branch coQ10, Yes [id number] 1{capsu Take 1 U nivers ubiquinol, 1-16 le} capsule by ity of 100 mg Cap 00:00: mouth [place] 00 daily. [facility] Branch coQ10, Yes [id number] 1{capsu Take 1 U nivers ubiquinol, 1-16 le} capsule by ity of 100 mg Cap 00:00: mouth [place] 00 daily. Medical Branch coQ10, Yes [id number] 1{capsu Take 1 U nivers ubiquinol, 1-16 le} capsule by ity of 100 mg Cap 00:00: mouth [place] 00 daily. Medical Branch coQ10, Yes [id number] 1{capsu Take 1 U nivers ubiquinol, 1-16 le} capsule by ity of 100 mg Cap 00:00: mouth [place] 00 daily. Medical Branch coQ10, Yes [id number] 1{capsu Take 1 U nivers ubiquinol, 1-16 le} capsule by ity of 100 mg Cap 00:00: mouth [place] 00 daily. Medical Branch coQ10, Yes [id number] 1{capsu Take 1 U nivers ubiquinol, 1-16 le} capsule by ity of 100 mg Cap 00:00: mouth [place] 00 daily. Medical Branch coQ10, Yes [id number] 1{capsu Take 1 U nivers ubiquinol, 1-16 le} capsule by ity of 100 mg Cap 00:00: mouth [place] 00 daily. Medical Branch coQ10, Yes [id number] 1{capsu Take 1 U nivers ubiquinol, 1-16 le} capsule by ity of 100 mg Cap 00:00: mouth [place] 00 daily. Medical Branch coQ10, Yes [id number] 1{capsu Take 1 U nivers ubiquinol, 1-16 le} capsule by ity of 100 mg Cap 00:00: mouth [place] 00 daily. Medical Branch coQ10, Yes [id number] 1{capsu Take 1 U nivers ubiquinol, 1-16 le} capsule by ity of 100 mg Cap 00:00: mouth [place] 00 daily. Medical Branch coQ10, Yes [id number] 1{capsu Take 1 U nivers ubiquinol, 1-16 le} capsule by ity of 100 mg Cap 00:00: mouth [place] 00 daily. Medical Branch coQ10, Yes [id number] 1{capsu Take 1 U nivers ubiquinol, 1-16 le} capsule by ity of 100 mg Cap 00:00: mouth [place] 00 daily. Medical Branch coQ10, Yes [id number] 1{capsu Take 1 U nivers ubiquinol, 1-16 le} capsule by ity of 100 mg Cap 00:00: mouth [place] 00 daily. Medical Branch coQ10, Yes [id number] 1{capsu Take 1 U nivers ubiquinol, 1-16 le} capsule by ity of 100 mg Cap 00:00: mouth [place] 00 daily. Medical Branch coQ10, Yes [id number] 1{capsu Take 1 U nivers ubiquinol, 1-16 le} capsule by ity of 100 mg Cap 00:00: mouth [place] 00 daily. Medical Branch coQ10, Yes [id number] 1{capsu Take 1 U nivers ubiquinol, 1-16 le} capsule by ity of 100 mg Cap 00:00: mouth [place] 00 daily. [facility] Branch coQ10, Yes [id number] 1{capsu Take 1 U nivers ubiquinol, 1-16 le} capsule by ity of 100 mg Cap 00:00: mouth [place] 00 daily. Medical Branch coQ10, Yes [id number] 1{capsu Take 1 U nivers ubiquinol, 1-16 le} capsule by ity of 100 mg Cap 00:00: mouth [place] 00 daily. Medical Branch coQ10, Yes [id number] 1{capsu Take 1 U nivers ubiquinol, 1-16 le} capsule by ity of 100 mg Cap 00:00: mouth [place] 00 daily. Medical Branch coQ10, Yes [id number] 1{capsu Take 1 U nivers ubiquinol, 1-16 le} capsule by ity of 100 mg Cap 00:00: mouth [place] 00 daily. Medical Branch coQ10, Yes [id number] 1{capsu Take 1 U nivers ubiquinol, 1-16 le} capsule by ity of 100 mg Cap 00:00: mouth [place] 00 daily. Medical Branch coQ10, Yes [id number] 1{capsu Take 1 U nivers ubiquinol, 1-16 le} capsule by ity of 100 mg Cap 00:00: mouth [place] 00 daily. [facility] Branch coQ10, Yes [id number] 1{capsu Take 1 U nivers ubiquinol, 1-16 le} capsule by ity of 100 mg Cap 00:00: mouth [place] 00 daily. [facility] Branch coQ10, Yes [id number] 1{capsu Take 1 U nivers ubiquinol, 1-16 le} capsule by ity of 100 mg Cap 00:00: mouth [place] 00 daily. Medical Branch coQ10, Yes [id number] 1{capsu Take 1 U nivers ubiquinol, 1-16 le} capsule by ity of 100 mg Cap 00:00: mouth [place] 00 daily. Medical Branch coQ10, Yes [id number] 1{capsu Take 1 U nivers ubiquinol, 1-16 le} capsule by ity of 100 mg Cap 00:00: mouth [place] 00 daily. Medical Branch coQ10, Yes [id number] 1{capsu Take 1 U nivers ubiquinol, 1-16 le} capsule by ity of 100 mg Cap 00:00: mouth [place] 00 daily. [facility] Branch coQ10, Yes [id number] 1{capsu Take 1 U nivers ubiquinol, 1-16 le} capsule by ity of 100 mg Cap 00:00: mouth [place] 00 daily. Medical Branch coQ10, Yes [id number] 1{capsu Take 1 U nivers ubiquinol, 1-16 le} capsule by ity of 100 mg Cap 00:00: mouth [place] 00 daily. Medical Branch coQ10, Yes [id number] 1{capsu Take 1 U nivers ubiquinol, 1-16 le} capsule by ity of 100 mg Cap 00:00: mouth [place] 00 daily. Medical Branch coQ10, Yes [id number] 1{capsu Take 1 U nivers ubiquinol, 1-16 le} capsule by ity of 100 mg Cap 00:00: mouth [place] 00 daily. Medical Branch coQ10, Yes [id number] 1{capsu Take 1 U nivers ubiquinol, 1-16 le} capsule by ity of 100 mg Cap 00:00: mouth [place] 00 daily. Medical Branch coQ10, Yes [id number] 1{capsu Take 1 U nivers ubiquinol, 1-16 le} capsule by ity of 100 mg Cap 00:00: mouth [place] 00 daily. Medical Branch coQ10, Yes [id number] 1{capsu Take 1 U nivers ubiquinol, 1-16 le} capsule by ity of 100 mg Cap 00:00: mouth [place] 00 daily. [facility] coQ10, Yes [id number] 1{capsu Take 1 U nivers ubiquinol, 1-16 le} capsule by ity of 100 mg Cap 00:00: mouth [place] 00 daily. [facility] coQ10, Yes [id number] 1{capsu Take 1 U nivers ubiquinol, 1-16 le} capsule by ity of 100 mg Cap 00:00: mouth [place] 00 daily. [facility] coQ10, Yes [id number] 1{capsu Take 1 U nivers ubiquinol, 1-16 le} capsule by ity of 100 mg Cap 00:00: mouth [place] 00 daily. [facility] coQ10, Yes [id number] 1{capsu Take 1 U nivers ubiquinol, 1-16 le} capsule by ity of 100 mg Cap 00:00: mouth [place] 00 daily. [facility] coQ10, Yes [id number] 1{capsu Take 1 U nivers ubiquinol, 1-16 le} capsule by ity of 100 mg Cap 00:00: mouth [place] 00 daily. [facility] coQ10, Yes [id number] 1{capsu Take 1 U nivers ubiquinol, 1-16 le} capsule by ity of 100 mg Cap 00:00: mouth [place] 00 daily. [facility] coQ10, Yes [id number] 1{capsu Take 1 U nivers ubiquinol, 1-16 le} capsule by ity of 100 mg Cap 00:00: mouth [place] 00 daily. [facility] coQ10, Yes [id number] 1{capsu Take 1 U nivers ubiquinol, 1-16 le} capsule by ity of 100 mg Cap 00:00: mouth [place] 00 daily. [facility] coQ10, Yes [id number] 1{capsu Take 1 U nivers ubiquinol, 1-16 le} capsule by ity of 100 mg Cap 00:00: mouth [place] 00 daily. [facility] coQ10, Yes [id number] 1{capsu Take 1 U nivers ubiquinol, 1-16 le} capsule by ity of 100 mg Cap 00:00: mouth [place] 00 daily. [facility] coQ10, Yes [id number] 1{capsu Take 1 U nivers ubiquinol, 1-16 le} capsule by ity of 100 mg Cap 00:00: mouth [place] 00 daily. [facility] coQ10, Yes [id number] 1{capsu Take 1 U nivers ubiquinol, 1-16 le} capsule by ity of 100 mg Cap 00:00: mouth [place] 00 daily. [facility] coQ10, Yes [id number] 1{capsu Take 1 U nivers ubiquinol, 1-16 le} capsule by ity of 100 mg Cap 00:00: mouth [place] 00 daily. [facility] coQ10, Yes [id number] 1{capsu Take 1 U nivers ubiquinol, 1-16 le} capsule by ity of 100 mg Cap 00:00: mouth [place] 00 daily. [facility] coQ10, Yes [id number] 1{capsu Take 1 U nivers ubiquinol, 1-16 le} capsule by ity of 100 mg Cap 00:00: mouth [place] 00 daily. [facility] coQ10, Yes [id number] 1{capsu Take 1 U nivers ubiquinol, 1-16 le} capsule by ity of 100 mg Cap 00:00: mouth [place] 00 daily. [facility] coQ10, Yes [id number] 1{capsu Take 1 U nivers ubiquinol, 1-16 le} capsule by ity of 100 mg Cap 00:00: mouth [place] 00 daily. [facility] coQ10, Yes [id number] 1{capsu Take 1 U nivers ubiquinol, 1-16 le} capsule by ity of 100 mg Cap 00:00: mouth [place] 00 daily. [facility] coQ10, Yes [id number] 1{capsu Take 1 U nivers ubiquinol, 1-16 le} capsule by ity of 100 mg Cap 00:00: mouth [place] 00 daily. [facility] coQ10, Yes [id number] 1{capsu Take 1 U nivers ubiquinol, 1-16 le} capsule by ity of 100 mg Cap 00:00: mouth [place] 00 daily. [facility] coQ10, Yes [id number] 1{capsu Take 1 U nivers ubiquinol, 1-16 le} capsule by ity of 100 mg Cap 00:00: mouth [place] 00 daily. [facility] coQ10, Yes [id number] 1{capsu Take 1 U nivers ubiquinol, 1-16 le} capsule by ity of 100 mg Cap 00:00: mouth [place] 00 daily. [facility] coQ10, Yes [id number] 1{capsu Take 1 U nivers ubiquinol, 1-16 le} capsule by ity of 100 mg Cap 00:00: mouth [place] 00 daily. [facility] coQ10, Yes [id number] 1{capsu Take 1 U nivers ubiquinol, 1-16 le} capsule by ity of 100 mg Cap 00:00: mouth [place] 00 daily. [facility] coQ10, Yes [id number] 1{capsu Take 1 U nivers ubiquinol, 1-16 le} capsule by ity of 100 mg Cap 00:00: mouth [place] 00 daily. [facility] coQ10, Yes [id number] 1{capsu Take 1 U nivers ubiquinol, 1-16 le} capsule by ity of 100 mg Cap 00:00: mouth [place] 00 daily. [facility] coQ10, Yes [id number] 1{capsu Take 1 U nivers ubiquinol, 1-16 le} capsule by ity of 100 mg Cap 00:00: mouth [place] 00 daily. [facility] coQ10, Yes [id number] 1{capsu Take 1 U nivers ubiquinol, 1-16 le} capsule by ity of 100 mg Cap 00:00: mouth [place] 00 daily. [facility] coQ10, Yes [id number] 1{capsu Take 1 U nivers ubiquinol, 1-16 le} capsule by ity of 100 mg Cap 00:00: mouth [place] 00 daily. [facility] coQ10, Yes [id number] 1{capsu Take 1 U nivers ubiquinol, 1-16 le} capsule by ity of 100 mg Cap 00:00: mouth [place] 00 daily. [facility] coQ10, Yes [id number] 1{capsu Take 1 U nivers ubiquinol, 1-16 le} capsule by ity of 100 mg Cap 00:00: mouth [place] 00 daily. [facility] coQ10, Yes [id number] 1{capsu Take 1 U nivers ubiquinol, 1-16 le} capsule by ity of 100 mg Cap 00:00: mouth [place] 00 daily. [facility] coQ10, Yes [id number] 1{capsu Take 1 U nivers ubiquinol, 1-16 le} capsule by ity of 100 mg Cap 00:00: mouth [place] 00 daily. [facility] coQ10, Yes [id number] 1{capsu Take 1 U nivers ubiquinol, 1-16 le} capsule by ity of 100 mg Cap 00:00: mouth [place] 00 daily. [facility] coQ10, Yes [id number] 1{capsu Take 1 U nivers ubiquinol, 1-16 le} capsule by ity of 100 mg Cap 00:00: mouth [place] 00 daily. [facility] coQ10, Yes [id number] 1{capsu Take 1 U nivers ubiquinol, 1-16 le} capsule by ity of 100 mg Cap 00:00: mouth [place] 00 daily. [facility] coQ10, Yes [id number] 1{capsu Take 1 U nivers ubiquinol, 1-16 le} capsule by ity of 100 mg Cap 00:00: mouth [place] 00 daily. [facility] coQ10, Yes [id number] 1{capsu Take 1 U nivers ubiquinol, 1-16 le} capsule by ity of 100 mg Cap 00:00: mouth [place] 00 daily. [facility] coQ10, Yes [id number] 1{capsu Take 1 U nivers ubiquinol, 1-16 le} capsule by ity of 100 mg Cap 00:00: mouth [place] 00 daily. [facility] loratadine Yes [id number] 10mg Take 1 [facility] 10 mg 1-23 tablet by ity of tablet 00:00: mouth [place] 00 daily. [facility] loratadine Yes [id number] 10mg Take 1 [facility] 10 mg 1-23 tablet by ity of tablet 00:00: mouth [place] 00 daily. [facility] loratadine Yes [id number] 10mg Take 1 [facility] 10 mg 1-23 tablet by ity of tablet 00:00: mouth [place] 00 daily. [facility] loratadine Yes [id number] 10mg Take 1 [facility] 10 mg 1-23 tablet by ity of tablet 00:00: mouth [place] 00 daily. [facility] loratadine Yes [id number] 10mg Take 1 [facility] 10 mg 1-23 tablet by ity of tablet 00:00: mouth [place] 00 daily. [facility] loratadine 2- No [id number] 10mg Take 1 [facility] 10 mg 1-23 06-13 tablet by ity of tablet 00:00: 00:00 [facility] 00 :00 daily. [facility] Branch Immunizations Ordered Immunization Filled Immunization Date Status Commen ts Source Name Name SARS-COV-2 COVID-2022-07-27 Completed Unive rsity of [facility] VACCINE 00:00:00 [facility] 12 YRS+, BIVALENT Branch 0.3ML, IM, (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) SARS-COV-2 COVID-19 2022-07-27 Completed Unive rsity of [facility] VACCINE 00:00:00 [facility] 12 YRS+, BIVALENT Branch 0.3ML, IM, (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) SARS-COV-2 COVID-19 2022-07-27 Completed Unive rsity of [facility]SUCROSE VACCINE 00:00:00 [facility] 12 YRS+, BIVALENT Branch 0.3ML, IM, (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) SARS-COV-2 COVID-19 2022-07-27 Completed Unive rsity of [facility]SUCR[facility] VACCINE 00:00:00 [facility] 12 YRS+, BIVALENT Branch 0.3ML, IM, (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) SARS-COV-2 COVID-19 2022-07-27 Completed Unive rsity of [facility]CR[facility] VACCINE 00:00:00 [facility] 12 YRS+, BIVALENT Branch 0.3ML, IM, (P[employer] BOOSTER) SARS-COV-2 COVID-19 2022-07-27 Completed Unive rsity of [facility]CR[facility] VACCINE 00:00:00 [facility] 12 YRS+, BIVALENT Branch 0.3ML, IM, (P[employer] BOOSTER) SARS-COV-2 COVID-19 2022-07-27 Completed Unive rsity of [facility]-SUCROSE VACCINE 00:00:00 [facility] 12 YRS+, BIVALENT Branch 0.3ML, IM, (P[employer] TOP BOOSTER) SARS-COV-2 COVID-19 2022-07-27 Completed Unive rsity of [facility]SUCROSE VACCINE 00:00:00 [facility] 12 YRS+, BIVALENT Branch 0.3ML, IM, (P[employer]OUNT[employer] TOP BOOSTER) SARS-COV-2 COVID-19 2022-07-27 Completed Unive rsity of [facility]EL[facility]-SUCROSE VACCINE 00:00:00 [facility] 12 YRS+, BIVALENT Branch 0.3ML, IM, (PFI[employer]OUNT[employer] TOP BOOSTER) SARS-COV-2 COVID-19 2022-07-27 Completed Unive rsity of [facility]ELLE-SUCROSE VACCINE 00:00:00 [facility] 12 YRS+, BIVALENT Branch 0.3ML, IM, (PFI[employer] FOUNT[employer] TOP BOOSTER) SARS-COV-2 COVID-19 2022-07-27 Completed Unive rsity of [facility]EL[facility]-SUCROSE VACCINE 00:00:00 [facility] 12 YRS+, BIVALENT Branch 0.3ML, IM, (PFI[employer] FOUNTAIN TOP BOOSTER) SARS-COV-2 COVID-19 2022-07-27 Completed Unive rsity of [facility]-SUCROSE VACCINE 00:00:00 [facility] 12 YRS+, BIVALENT Branch 0.3ML, IM, (PFI[employer] TOP BOOSTER) SARS-COV-2 COVID-19 2022-07-27 Completed Unive rsity of [facility]ELLE-SUCROSE VACCINE 00:00:00 [facility] 12 YRS+, BIVALENT Branch 0.3ML, IM, (PFI[employer] TOP BOOSTER) SARS-COV-2 COVID-19 2022-07-27 Completed Unive rsity of [facility]ELLE-SUCROSE VACCINE 00:00:00 [facility] 12 YRS+, BIVALENT Branch 0.3ML, IM, (P[employer] FOUNT[employer] TOP BOOSTER) SARS-COV-2 COVID-19 2022-07-27 Completed Unive rsity of [facility]ELLE-SUCROSE VACCINE 00:00:00 [facility] 12 YRS+, BIVALENT Branch 0.3ML, IM, (PFIZ[employer] FOUNTAIN TOP BOOSTER) SARS-COV-2 COVID-19 2022-07-27 Completed Unive rsity of [facility]ELLE-SUCROSE VACCINE 00:00:00 [facility] 12 YRS+, BIVALENT Branch 0.3ML, IM, (PFI[employer] FOUNTAIN TOP BOOSTER) SARS-COV-2 COVID-19 2022-07-27 Completed Unive rsity of [facility]EL[facility]-SUCROSE VACCINE 00:00:00 [facility] 12 YRS+, BIVALENT Branch 0.3ML, IM, (PFI[employer] FOUNT[employer] TOP BOOSTER) SARS-COV-2 COVID-19 2022-07-27 Completed Unive rsity of [facility]ELLE-SUCROSE VACCINE 00:00:00 [facility] 12 YRS+, BIVALENT Branch 0.3ML, IM, (PFIZ[employer] FOUNTAIN TOP BOOSTER) SARS-COV-2 COVID-19 2022-07-27 Completed Unive rsity of [facility]ELLE-SUCROSE VACCINE 00:00:00 [facility] 12 YRS+, BIVALENT Branch 0.3ML, IM, (PFI[employer]ER FOUNTAIN TOP BOOSTER) SARS-COV-2 COVID-19 2022-07-27 Completed Unive rsity of [facility]EL[facility]-SUCROSE VACCINE 00:00:00 [facility] 12 YRS+, BIVALENT Branch 0.3ML, IM, (PFIZER FOUNTAIN TOP BOOSTER) SARS-COV-2 COVID-19 2022-07-27 Completed Unive rsity of [facility]ELLE-SUCROSE VACCINE 00:00:00 [facility] 12 YRS+, BIVALENT Branch 0.3ML, IM, (PFIZER FOUNTAIN TOP BOOSTER) SARS-COV-2 COVID-19 2022-07-27 Completed Unive rsity of [facility]ELLE-SUCROSE VACCINE 00:00:00 [facility] 12 YRS+, BIVALENT Branch 0.3ML, IM, (PFIZER FOUNTAIN TOP BOOSTER) SARS-COV-2 COVID-19 2022-07-27 Completed Unive rsity of [facility]EL[facility]-SUCROSE VACCINE 00:00:00 [facility] 12 YRS+, BIVALENT Branch 0.3ML, IM, (PFIZER FOUNTAIN TOP BOOSTER) SARS-COV-2 COVID-19 2022-07-27 Completed Unive rsity of [facility]ELLE-SUCROSE VACCINE 00:00:00 [facility] 12 YRS+, BIVALENT Branch 0.3ML, IM, (PFIZ[employer] FOUNT[employer] TOP BOOSTER) SARS-COV-2 COVID-19 2022-07-27 Completed Unive rsity of [facility]EL[facility]-SUCROSE VACCINE 00:00:00 [facility] 12 YRS+, BIVALENT Branch 0.3ML, IM, (PFIZ[employer] FOUNTAIN TOP BOOSTER) SARS-COV-2 COVID-19 2022-07-27 Completed Unive rsity of [facility]EL[facility]-SUCROSE VACCINE 00:00:00 [facility] 12 YRS+, BIVALENT Branch 0.3ML, IM, (PFIZER FOUNTAIN TOP BOOSTER) SARS-COV-2 COVID-19 2022-07-27 Completed Unive rsity of [facility]EL[facility]-SUCROSE VACCINE 00:00:00 [facility] 12 YRS+, BIVALENT Branch 0.3ML, IM, (PFIZER FOUNTAIN TOP BOOSTER) SARS-COV-2 COVID-19 2022-07-27 Completed Unive rsity of [facility]ELLE-SUCROSE VACCINE 00:00:00 [facility] 12 YRS+, BIVALENT Branch 0.3ML, IM, (PFIZER FOUNTAIN TOP BOOSTER) SARS-COV-2 COVID-19 2022-07-27 Completed Unive rsity of [facility]ELLE-SUCROSE VACCINE 00:00:00 [facility] 12 YRS+, BIVALENT Branch 0.3ML, IM, (PFIZER FOUNTAIN TOP BOOSTER) SARS-COV-2 COVID-19 2022-07-27 Completed Unive rsity of [facility]ELLE-SUCROSE VACCINE 00:00:00 [facility] 12 YRS+, BIVALENT Branch 0.3ML, IM, (PFIZER FOUNTAIN TOP BOOSTER) SARS-COV-2 COVID-19 2022-07-27 Completed Unive rsity of [facility]ELLE-SUCROSE VACCINE 00:00:00 [facility] 12 YRS+, BIVALENT Branch 0.3ML, IM, (PFIZER FOUNTAIN TOP BOOSTER) SARS-COV-2 COVID-19 2022-07-27 Completed Unive rsity of [facility]ELLE-SUCROSE VACCINE 00:00:00 [facility] 12 YRS+, BIVALENT Branch 0.3ML, IM, (PFIZER FOUNTAIN TOP BOOSTER) SARS-COV-2 COVID-19 2022-07-27 Completed Unive rsity of [facility]ELLE-SUCROSE VACCINE 00:00:00 [facility] 12 YRS+, BIVALENT Branch 0.3ML, IM, (PFIZER FOUNTAIN TOP BOOSTER) SARS-COV-2 COVID-19 2022-07-27 Completed Unive rsity of [facility]STELLE-SUCROSE VACCINE 00:00:00 [facility] 12 YRS+, BIVALENT Branch 0.3ML, IM, (PFIZER FOUNTAIN TOP BOOSTER) SARS-COV-2 COVID-19 2022-07-27 Completed Unive rsity of [facility]ELLE-SUCROSE VACCINE 00:00:00 [facility] 12 YRS+, BIVALENT Branch 0.3ML, IM, (PFIZER FOUNTAIN TOP BOOSTER) SARS-COV-2 COVID-19 2022-07-27 Completed Unive rsity of [facility]EL[facility]-SUCROSE VACCINE 00:00:00 [facility] 12 YRS+, BIVALENT Branch 0.3ML, IM, (PFIZER FOUNTAIN TOP BOOSTER) SARS-COV-2 COVID-19 2022-07-27 Completed Unive rsity of [facility]EL[facility]-SUCROSE VACCINE 00:00:00 [facility] 12 YRS+, BIVALENT Branch 0.3ML, IM, (PFIZER FOUNTAIN TOP BOOSTER) SARS-COV-2 COVID-19 2022-07-27 Completed Unive rsity of [facility]ELLE-SUCROSE VACCINE 00:00:00 [facility] 12 YRS+, BIVALENT Branch 0.3ML, IM, (PFIZER FOUNTAIN TOP BOOSTER) SARS-COV-2 COVID-19 2022-07-27 Completed Unive rsity of [facility]STELLE-SUCROSE VACCINE 00:00:00 [facility] 12 YRS+, BIVALENT Branch 0.3ML, IM, (PFIZER FOUNTAIN TOP BOOSTER) SARS-COV-2 COVID-19 2022-07-27 Completed Unive rsity of [facility]STELLE-SUCROSE VACCINE 00:00:00 [facility] 12 YRS+, BIVALENT Branch 0.3ML, IM, (PFIZER FOUNTAIN TOP BOOSTER) SARS-COV-2 COVID-19 2022-07-27 Completed Unive rsity of [facility]STELLE-SUCROSE VACCINE 00:00:00 [facility] 12 YRS+, BIVALENT Branch 0.3ML, IM, (PFIZER FOUNTAIN TOP BOOSTER) SARS-COV-2 COVID-19 2022-07-27 Completed Unive rsity of [facility]ELLE-SUCROSE VACCINE 00:00:00 [facility] 12 YRS+, BIVALENT Branch 0.3ML, IM, (PFIZER FOUNTAIN TOP BOOSTER) SARS-COV-2 COVID-19 2022-07-27 Completed Unive rsity of [facility]STELLE-SUCROSE VACCINE 00:00:00 [facility] 12 YRS+, BIVALENT Branch 0.3ML, IM, (PFIZER FOUNTAIN TOP BOOSTER) SARS-COV-2 COVID-19 2022-07-27 Completed Unive rsity of [facility]STELLE-SUCROSE VACCINE 00:00:00 [facility] 12 YRS+, BIVALENT Branch 0.3ML, IM, (PFIZER FOUNTAIN TOP BOOSTER) SARS-COV-2 COVID-19 2022-07-27 Completed Unive rsity of [facility]STELLE-SUCROSE VACCINE 00:00:00 [facility] 12 YRS+, BIVALENT Branch 0.3ML, IM, (PFIZER FOUNTAIN TOP BOOSTER) SARS-COV-2 COVID-19 2022-07-27 Completed Unive rsity of [facility]ELLE-SUCROSE VACCINE 00:00:00 [facility] 12 YRS+, BIVALENT Branch 0.3ML, IM, (PFIZER FOUNTAIN TOP BOOSTER) SARS-COV-2 COVID-19 2022-07-27 Completed Unive rsity of [facility]STELLE-SUCROSE VACCINE 00:00:00 [facility] 12 YRS+, BIVALENT Branch 0.3ML, IM, (PFIZER FOUNTAIN TOP BOOSTER) SARS-COV-2 COVID-19 2022-07-27 Completed Unive rsity of [facility]ELLE-SUCROSE VACCINE 00:00:00 [facility] 12 YRS+, BIVALENT Branch 0.3ML, IM, (PFIZER FOUNTAIN TOP BOOSTER) SARS-COV-2 COVID-19 2022-07-27 Completed Unive rsity of [facility]RISTELLE-SUCROSE VACCINE 00:00:00 [facility] 12 YRS+, BIVALENT Branch 0.3ML, IM, (PFIZER FOUNTAIN TOP BOOSTER) SARS-COV-2 COVID-19 2022-07-27 Completed Unive rsity of [facility]STELLE-SUCROSE VACCINE 00:00:00 [facility] 12 YRS+, BIVALENT Branch 0.3ML, IM, (PFIZER FOUNTAIN TOP BOOSTER) SARS-COV-2 COVID-19 2022-07-27 Completed Unive rsity of [facility]STELLE-SUCROSE VACCINE 00:00:00 [facility] 12 YRS+, BIVALENT Branch 0.3ML, IM, (PFIZER FOUNTAIN TOP BOOSTER) SARS-COV-2 COVID-19 2022-07-27 Completed Unive rsity of [facility]STELLE-SUCROSE VACCINE 00:00:00 [facility] 12 YRS+, BIVALENT Branch 0.3ML, IM, (PFIZER FOUNTAIN TOP BOOSTER) SARS-COV-2 COVID-19 2022-07-27 Completed Unive rsity of [facility]STELLE-SUCROSE VACCINE 00:00:00 [facility] 12 YRS+, BIVALENT Branch 0.3ML, IM, (PFIZER FOUNTAIN TOP BOOSTER) SARS-COV-2 COVID-19 2022-07-27 Completed Unive rsity of [facility]STELLE-SUCROSE VACCINE 00:00:00 [facility] 12 YRS+, BIVALENT Branch 0.3ML, IM, (PFIZER FOUNTAIN TOP BOOSTER) SARS-COV-2 COVID-19 2022-07-27 Completed Unive rsity of [facility]STELLE-SUCROSE VACCINE 00:00:00 [facility] 12 YRS+, BIVALENT Branch 0.3ML, IM, (PFIZER FOUNTAIN TOP BOOSTER) SARS-COV-2 COVID-19 2022-07-27 Completed Unive rsity of [facility]STELLE-SUCROSE VACCINE 00:00:00 [facility] 12 YRS+, BIVALENT Branch 0.3ML, [...] of Vaccine Quad .5 mL IM 00:00:00 [facility] [place] [facility] Influenza Virus [...] of Vaccine Quad .5 mL IM 00:00:00 [facility] Influenza Virus [...] b) 2022-02-24 Completed Uni versity of 00:00:00 [facility] Twinrix (hep a/hep b) 2022-02-24 Completed Uni versity of 00:00:00 [facility] (hep a/hep b) 2022-02-24 Completed Uni versity of 00:00:00 [facility] Twinrix (hep a/hep b) 2022-02-24 Completed Uni versity of 00:00:00 [facility] Twinrix (hep a/hep b) 2022-02-24 Completed Uni versity of 00:00:00 [facility] Twin[facility] (hep a/hep b) 2022-02-24 Completed Uni versity of 00:00:00 [facility] (hep a/hep b) 2022-02-24 Completed Uni versity of 00:00:00 [facility] (hep a/hep b) 2022-02-24 Completed Uni versity of 00:00:00 [facility] (hep a/hep b) 2022-02-24 [...] b) 2022-02-24 Completed Uni versity of 00:00:00 [facility] Twin[facility] (hep a/hep b) 2022-02-24 Completed Uni versity of 00:00:00 [facility] Twin[facility] (hep a/hep b) 2022-02-24 Completed Uni versity of 00:00:00 [facility] (hep a/hep b) 2022-02-24 Completed Uni versity of 00:00:00 [facility] Twin[facility] (hep a/hep b) 2022-02-24 Completed Uni versity of 00:00:00 [facility] (hep a/hep b) 2022-02-24 Completed Uni versity of 00:00:00 [facility] (hep a/hep b) 2022-02-24 Completed Uni versity of 00:00:00 [facility] (hep a/hep b) 2022-02-24 Completed Uni versity of 00:00:00 [place] [facility] Twin[facility] (hep a/hep b) 2022-02-24 Completed Uni versity of 00:00:00 [place] [facility] (hep a/hep b) 2022-02-24 Completed Uni versity of 00:00:00 [place] [facility] Twin[facility] (hep a/hep b) 2022-02-24 Completed Uni versity of 00:00:00 [facility] (hep a/hep b) 2022-02-24 [...] b) 2022-02-24 Completed Uni versity of 00:00:00 [facility] (hep a/hep b) 2022-02-24 Completed Uni versity of 00:00:00 [facility] (hep a/hep b) 2022-02-24 Completed Uni versity of 00:00:00 [facility] Twinrix (hep a/hep b) 2022-02-24 Completed Uni versity of 00:00:00 [facility] Twin[facility] (hep a/hep b) 2022-02-24 Completed Uni versity of 00:00:00 [facility] (hep a/hep b) 2022-02-24 Completed Uni versity of 00:00:00 [facility] Twin[facility] (hep a/hep b) 2022-02-24 Completed Uni versity of 00:00:00 [facility] Twin[facility] (hep a/hep b) 2022-02-24 Completed Uni versity of 00:00:00 [facility] Twin[facility] (hep a/hep b) 2022-02-24 Completed Uni versity of 00:00:00 [place] [facility] Twinrix (hep a/hep b) 2022-02-24 Completed Uni versity of 00:00:00 [place] [facility] Twin[facility] (hep a/hep b) 2022-02-24 Completed Uni versity of 00:00:00 [place] [facility] (hep a/hep b) 2022-02-24 Completed Uni versity of 00:00:00 [facility] Twin[facility] (hep a/hep b) 2022-02-24 Completed Uni versity of 00:00:00 [facility] (hep a/hep b) 2022-02-24 Completed Uni versity of 00:00:00 [facility] (hep a/hep b) 2022-02-24 Completed Uni versity of 00:00:00 [place] [facility] (hep a/hep b) 2022-02-24 Completed Uni versity of 00:00:00 [facility] (hep a/hep b) 2022-02-24 Completed Uni versity of 00:00:00 [facility] (hep a/hep b) 2022-02-24 Completed Uni versity of 00:00:00 [place] [facility] (hep a/hep b) 2022-02-24 Completed Uni versity of 00:00:00 [facility] (hep a/hep b) 2022-02-24 Completed Uni versity of 00:00:00 [facility] (hep a/hep b) 2022-02-24 Completed Uni versity of 00:00:00 [facility] Twinrix (hep a/hep b) 2022-02-24 Completed Uni versity of 00:00:00 [facility] Twin[facility] (hep a/hep b) 2022-02-24 Completed Uni versity of 00:00:00 [facility] Twin[facility] (hep a/hep b) 2022-02-24 Completed Uni versity of 00:00:00 [facility] Twin[facility] (hep a/hep b) 2022-02-24 Completed Uni versity of 00:00:00 [facility] Twin[facility] (hep a/hep b) 2022-02-24 Completed Uni versity of 00:00:00 [facility] (hep a/hep b) 2022-02-24 Completed Uni versity of 00:00:00 [facility] (hep a/hep b) 2022-02-24 Completed Uni versity of 00:00:00 [place] [facility] (hep a/hep b) 2022-02-24 Completed Uni versity of 00:00:00 [facility] (hep a/hep b) 2022-02-24 Completed Uni versity of 00:00:00 [facility] Twin[facility] (hep a/hep b) 2022-02-24 [...] b) 2022-02-24 Completed Uni versity of 00:00:00 [facility] (hep a/hep b) 2022-02-24 Completed Uni versity of 00:00:00 [facility] (hep a/hep b) 2022-02-24 Completed Uni versity of 00:00:00 [facility] (hep a/hep b) 2022-02-24 Completed Uni versity of 00:00:00 [facility] (hep a/hep b) 2022-02-24 Completed Uni versity of 00:00:00 [facility] (hep a/hep b) 2022-02-24 Completed Uni versity of 00:00:00 [facility] Twin[facility] (hep a/hep b) 2022-02-24 [...] b) 2022-02-24 Completed Uni versity of 00:00:00 [facility] (hep a/hep b) 2022-02-24 Completed Uni versity of 00:00:00 [facility] (hep a/hep b) 2022-02-24 Completed Uni versity of 00:00:00 [facility] (hep a/hep b) 2022-02-24 Completed [facility] 00:00:00 [facility] (hep a/hep b) 2022-02-24 Completed [facility] 00:00:00 [facility] (hep a/hep b) 2022-02-24 Completed [facility] 00:00:00 [facility] (hep a/hep b) 2022-02-24 Completed [facility] 00:00:00 [facility] (hep a/hep b) 2022-02-24 Completed [facility] 00:00:00 [facility] (hep a/hep b) 2022-02-24 Completed [facility] 00:00:00 [facility] (hep a/hep b) 2022-02-24 Completed [facility] 00:00:00 [facility] (hep a/hep b) 2022-02-24 Completed [facility] 00:00:00 [facility] (hep a/hep b) 2022-02-24 Completed [facility] 00:00:00 [facility] (hep a/hep b) 2022-02-24 Completed [facility] of 00:00:00 [facility] (hep a/hep b) 2022-02-24 Completed [facility] 00:00:00 [facility] (hep a/hep b) 2022-02-24 Completed [facility] of 00:00:00 [facility] (hep a/hep b) 2022-02-24 Completed [facility] of 00:00:00 [facility] (hep a/hep b) 2022-02-24 Completed [facility] of 00:00:00 [facility] (hep a/hep b) 2022-02-24 [...] b) 2022-02-24 Completed [facility] 00:00:00 [facility] (hep a/hep b) 2022-02-24 Completed [facility] 00:00:00 [facility] (hep a/hep b) 2022-02-24 Completed [facility] 00:00:00 [facility] (hep a/hep b) 2022-02-24 Completed [facility] 00:00:00 [facility] (hep a/hep b) 2022-02-24 Completed [facility] 00:00:00 [facility] (hep a/hep b) 2022-02-24 Completed [facility] 00:00:00 [facility] (hep a/hep b) 2022-02-24 Completed [facility] 00:00:00 [facility] (hep a/hep b) 2022-02-24 Completed [facility] 00:00:00 [facility] (hep a/hep b) 2022-01-14 Completed [facility] 00:00:00 [facility] (hep a/hep b) 2022-01-14 Completed [facility] 00:00:00 [facility] (hep a/hep b) 2022-01-14 Completed [facility] 00:00:00 [facility] (hep a/hep b) 2022-01-14 Completed [facility] 00:00:00 [facility] (hep a/hep b) 2022-01-14 Completed [facility] 00:00:00 [facility] (hep a/hep b) 2022-01-14 Completed [facility] 00:00:00 [facility] (hep a/hep b) 2022-01-14 Completed [facility] 00:00:00 [facility] (hep a/hep b) 2022-01-14 Completed [facility] 00:00:00 [facility] (hep a/hep b) 2022-01-14 Completed [facility] 00:00:00 [facility] (hep a/hep b) 2022-01-14 Completed [facility] of 00:00:00 [facility] (hep a/hep b) 2022-01-14 Completed [facility] 00:00:00 [facility] (hep a/hep b) 2022-01-14 Completed [facility] 00:00:00 [facility] (hep a/hep b) 2022-01-14 Completed [facility] 00:00:00 [facility] (hep a/hep b) 2022-01-14 Completed [facility] 00:00:00 [facility] (hep a/hep b) 2022-01-14 Completed [facility] 00:00:00 [facility] (hep a/hep b) 2022-01-14 Completed [facility] of 00:00:00 [facility] (hep a/hep b) 2022-01-14 Completed [facility] 00:00:00 [facility] (hep a/hep b) 2022-01-14 Completed [facility] 00:00:00 [facility] (hep a/hep b) 2022-01-14 Completed [facility] vers[facility] of 00:00:00 [facility] (hep a/hep b) 2022-01-14 Completed [facility] 00:00:00 [facility] (hep a/hep b) 2022-01-14 [...] b) 2022-01-14 Completed [facility] 00:00:00 [facility] (hep a/hep b) 2022-01-14 Completed [facility] 00:00:00 [facility] (hep a/hep b) 2022-01-14 Completed [facility] 00:00:00 [facility] (hep a/hep b) 2022-01-14 Completed [facility] vers[facility] of 00:00:00 [facility] (hep a/hep b) 2022-01-14 Completed [facility] of 00:00:00 [facility] (hep a/hep b) 2022-01-14 Completed [facility] 00:00:00 [facility] (hep a/hep b) 2022-01-14 [...] b) 2022-01-14 Completed [facility] 00:00:00 [facility] (hep a/hep b) 2022-01-14 Completed [facility] 00:00:00 [facility] (hep a/hep b) 2022-01-14 Completed [facility] vers[facility] of 00:00:00 [facility] (hep a/hep b) 2022-01-14 Completed [facility] 00:00:00 [facility] (hep a/hep b) 2022-01-14 Completed [facility] vers[facility] 00:00:00 [facility] (hep a/hep b) 2022-01-14 Completed [facility] 00:00:00 [facility] (hep a/hep b) 2022-01-14 Completed [facility] 00:00:00 [facility] (hep a/hep b) 2022-01-14 Completed [facility] 00:00:00 [facility] (hep a/hep b) 2022-01-14 Completed [facility] 00:00:00 [facility] (hep a/hep b) 2022-01-14 Completed [facility] 00:00:00 [facility] (hep a/hep b) 2022-01-14 Completed [facility] 00:00:00 [facility] (hep a/hep b) 2022-01-14 Completed [facility] of 00:00:00 [facility] (hep a/hep b) 2022-01-14 Completed [facility] 00:00:00 [facility] (hep a/hep b) 2022-01-14 Completed [facility] of 00:00:00 [facility] (hep a/hep b) 2022-01-14 Completed [facility] 00:00:00 [facility] (hep a/hep b) 2022-01-14 Completed [facility] vers[facility] 00:00:00 [facility] (hep a/hep b) 2022-01-14 Completed [facility] vers[facility] of 00:00:00 [facility] (hep a/hep b) 2022-01-14 Completed [facility] 00:00:00 [facility] (hep a/hep b) 2022-01-14 Completed [facility] 00:00:00 [facility] (hep a/hep b) 2022-01-14 [...] b) 2022-01-14 Completed [facility] 00:00:00 [facility] (hep a/hep b) 2022-01-14 Completed [facility] 00:00:00 [facility] (hep a/hep b) 2022-01-14 Completed [facility] vers[facility] of 00:00:00 [facility] (hep a/hep b) 2022-01-14 Completed [facility] of 00:00:00 [facility] (hep a/hep b) 2022-01-14 Completed [facility] 00:00:00 [facility] (hep a/hep b) 2022-01-14 Completed [facility] 00:00:00 [facility] (hep a/hep b) 2022-01-14 Completed [facility] 00:00:00 [facility] (hep a/hep b) 2022-01-14 Completed [facility] 00:00:00 [facility] (hep a/hep b) 2022-01-14 Completed [facility] 00:00:00 [facility] (hep a/hep b) 2022-01-14 Completed [facility] 00:00:00 [facility] (hep a/hep b) 2022-01-14 Completed [facility] 00:00:00 [facility] (hep a/hep b) 2022-01-14 Completed [facility] 00:00:00 [facility] (hep a/hep b) 2022-01-14 Completed [facility] 00:00:00 [facility] (hep a/hep b) 2022-01-14 Completed [facility] of 00:00:00 [facility] (hep a/hep b) 2022-01-14 Completed [facility] 00:00:00 [facility] (hep a/hep b) 2022-01-14 Completed [facility] 00:00:00 [facility] (hep a/hep b) 2022-01-14 Completed [facility] of 00:00:00 [facility] (hep a/hep b) 2022-01-14 Completed [facility] 00:00:00 [facility] (hep a/hep b) 2022-01-14 Completed [facility] 00:00:00 [facility] (hep a/hep b) 2022-01-14 Completed [facility] 00:00:00 [facility] (hep a/hep b) 2022-01-14 Completed [facility] of 00:00:00 [facility] (hep a/hep b) 2022-01-14 Completed [facility] 00:00:00 [facility] (hep a/hep b) 2022-01-14 Completed [facility] of 00:00:00 [facility] (hep a/hep b) 2022-01-14 Completed [facility] 00:00:00 [facility] (hep a/hep b) 2022-01-14 Completed [facility] 00:00:00 [facility] (hep a/hep b) 2022-01-14 Completed [facility] 00:00:00 [facility] (hep a/hep b) 2022-01-14 Completed [facility] 00:00:00 [facility] (hep a/hep b) 2022-01-14 Completed [facility] 00:00:00 [facility] (hep a/hep b) 2022-01-14 Completed [facility] of 00:00:00 [facility] (hep a/hep b) 2022-01-14 Completed [facility] 00:00:00 [facility] (hep a/hep b) 2022-01-14 [...] b) 2022-01-14 Completed [facility] 00:00:00 [facility] (hep a/hep b) 2022-01-14 Completed [facility] 00:00:00 [facility] (hep a/hep b) 2022-01-14 Completed [facility] 00:00:00 [facility] (hep a/hep b) 2022-01-14 Completed [facility] 00:00:00 [facility] (hep a/hep b) 2022-01-14 Completed [facility] 00:00:00 [facility] (hep a/hep b) 2022-01-14 Completed [facility] 00:00:00 [facility] (hep a/hep b) 2022-01-14 [...] b) 2022-01-14 Completed [facility] 00:00:00 [facility] (hep a/hep b) 2022-01-14 Completed [facility] 00:00:00 [facility] (hep a/hep b) 2022-01-14 Completed [facility] 00:00:00 [facility] SARS-COV-2 COVID-19 2021-07-23 Completed Unive [facility] of PFIZER VACCINE 00:00:00 [facility] SARS-COV-2 COVID-19 2021-07-23 Completed Un[facility] rs[facility] of PFIZER VACCINE 00:00:00 [facility] SARS-COV-2 COVID-19 2021-07-23 Completed [facility] of PFIZER VACCINE 00:00:00 [facility] SARS-COV-2 COVID-19 2021-07-23 Completed [facility] of PFIZER VACCINE 00:00:00 [facility] SARS-COV-2 COVID-19 2021-07-23 Completed [facility] of PFIZER VACCINE 00:00:00 [facility] SARS-COV-2 COVID-19 2021-07-23 Completed [facility] of PFIZER VACCINE 00:00:00 [facility] SARS-COV-2 COVID-19 2021-07-23 Completed [facility] of PFIZER VACCINE 00:00:00 [facility] SARS-COV-2 COVID-19 2021-07-23 Completed [facility] of PFIZER VACCINE 00:00:00 [facility] SARS-COV-2 COVID-19 2021-07-23 Completed [facility] of PFIZER VACCINE 00:00:00 [facility] SARS-COV-2 COVID-19 2021-07-23 Completed [facility] of PFIZER VACCINE 00:00:00 [facility] SARS-COV-2 COVID-19 2021-07-23 Completed [facility] of PFIZER VACCINE 00:00:00 [facility] SARS-COV-2 COVID-19 2021-07-23 Completed [facility] of PFIZER VACCINE 00:00:00 [facility] SARS-COV-2 COVID-19 2021-07-23 Completed [facility] of PFIZER VACCINE 00:00:00 [facility] SARS-COV-2 COVID-19 2021-07-23 Completed [facility] of PFIZER VACCINE 00:00:00 [facility] SARS-COV-2 COVID-19 2021-07-23 Completed [facility] PFIZER VACCINE 00:00:00 [facility] SARS-COV-2 COVID-19 2021-07-23 Completed [facility] of PFIZER VACCINE 00:00:00 [facility] SARS-COV-2 COVID-19 2021-07-23 Completed [facility] of PFIZER VACCINE 00:00:00 [facility] SARS-COV-2 COVID-19 2021-07-23 Completed [facility] of PFIZER VACCINE 00:00:00 [facility] SARS-COV-2 COVID-19 2021-07-23 Completed [facility] of PFIZER VACCINE 00:00:00 [facility] SARS-COV-2 COVID-19 2021-07-23 Completed [facility] of PFIZER VACCINE 00:00:00 [facility] SARS-COV-2 COVID-19 2021-07-23 Completed [facility] of PFIZER VACCINE 00:00:00 [facility] SARS-COV-2 COVID-19 2021-07-23 Completed [facility] of PFIZER VACCINE 00:00:00 [facility] SARS-COV-2 COVID-19 2021-07-23 Completed [facility] of PFIZER VACCINE 00:00:00 [facility] SARS-COV-2 COVID-19 2021-07-23 Completed [facility] of PFIZER VACCINE 00:00:00 [facility] SARS-COV-2 COVID-19 2021-07-23 Completed [facility] of PFIZER VACCINE 00:00:00 [facility] SARS-COV-2 COVID-19 2021-07-23 Completed [facility] of PFIZER VACCINE 00:00:00 [facility] SARS-COV-2 COVID-19 2021-07-23 Completed [facility] of PFIZER VACCINE 00:00:00 [facility] SARS-COV-2 COVID-19 2021-07-23 Completed [facility] of PFIZER VACCINE 00:00:00 [facility] SARS-COV-2 COVID-19 2021-07-23 Completed [facility] of PFIZER VACCINE 00:00:00 [facility] SARS-COV-2 COVID-19 2021-07-23 Completed [facility] of PFIZER VACCINE 00:00:00 [facility] SARS-COV-2 COVID-19 2021-07-23 Completed [facility] of PFIZER VACCINE 00:00:00 [facility] SARS-COV-2 COVID-19 2021-07-23 Completed [facility] of PFIZER VACCINE 00:00:00 [facility] SARS-COV-2 COVID-19 2021-07-23 Completed [facility] of PFIZER VACCINE 00:00:00 [facility] SARS-COV-2 COVID-19 2021-07-23 Completed [facility] of PFIZER VACCINE 00:00:00 [facility] SARS-COV-2 COVID-19 2021-07-23 Completed [facility] of PFIZER VACCINE 00:00:00 [facility] SARS-COV-2 COVID-19 2021-07-23 Completed [facility] of PFIZER VACCINE 00:00:00 [facility] SARS-COV-2 COVID-19 2021-07-23 Completed [facility] of PFIZER VACCINE 00:00:00 [facility] SARS-COV-2 COVID-19 2021-07-23 Completed [facility] of PFIZER VACCINE 00:00:00 [facility] SARS-COV-2 COVID-19 2021-07-23 Completed [facility] of PFIZER VACCINE 00:00:00 [facility] SARS-COV-2 COVID-19 2021-07-23 Completed [facility] of PFIZER VACCINE 00:00:00 [facility] SARS-COV-2 COVID-19 2021-07-23 Completed [facility] of PFIZER VACCINE 00:00:00 [facility] SARS-COV-2 COVID-19 2021-07-23 Completed [facility] of PFIZER VACCINE 00:00:00 [facility] SARS-COV-2 COVID-19 2021-07-23 Completed [facility] of PFIZER VACCINE 00:00:00 [facility] SARS-COV-2 COVID-19 2021-07-23 Completed [facility] of PFIZER VACCINE 00:00:00 [facility] SARS-COV-2 COVID-19 2021-07-23 Completed [facility] of PFIZER VACCINE 00:00:00 [facility] SARS-COV-2 COVID-19 2021-07-23 Completed [facility] of PFIZER VACCINE 00:00:00 [facility] SARS-COV-2 COVID-19 2021-07-23 Completed [facility] of PFIZER VACCINE 00:00:00 [facility] SARS-COV-2 COVID-19 2021-07-23 Completed [facility] of PFIZER VACCINE 00:00:00 [facility] SARS-COV-2 COVID-19 2021-07-23 Completed [facility] of PFIZER VACCINE 00:00:00 [facility] SARS-COV-2 COVID-19 2021-07-23 Completed [facility] of PFIZER VACCINE 00:00:00 [facility] SARS-COV-2 COVID-19 2021-07-23 Completed [facility] of PFIZER VACCINE 00:00:00 [facility] SARS-COV-2 COVID-19 2021-07-23 Completed [facility] of PFIZER VACCINE 00:00:00 [facility] SARS-COV-2 COVID-19 2021-07-23 Completed [facility] of PFIZER VACCINE 00:00:00 [facility] SARS-COV-2 COVID-19 2021-07-23 Completed [facility] of PFIZER VACCINE 00:00:00 [facility] SARS-COV-2 COVID-19 2021-07-23 Completed [facility] of PFIZER VACCINE 00:00:00 [facility] SARS-COV-2 COVID-19 2021-07-23 Completed [facility] of PFIZER VACCINE 00:00:00 [facility] SARS-COV-2 COVID-19 2021-07-23 Completed [facility] of PFIZER VACCINE 00:00:00 [facility] SARS-COV-2 COVID-19 2021-07-23 Completed [facility] of PFIZER VACCINE 00:00:00 [facility] SARS-COV-2 COVID-19 2021-07-23 Completed [facility] of PFIZER VACCINE 00:00:00 [facility] SARS-COV-2 COVID-19 2021-07-23 Completed [facility] of PFIZER VACCINE 00:00:00 [facility] SARS-COV-2 COVID-19 2021-07-23 Completed [facility] of PFIZER VACCINE 00:00:00 [facility] SARS-COV-2 COVID-19 2021-07-23 Completed [facility] of PFIZER VACCINE 00:00:00 [facility] SARS-COV-2 COVID-19 2021-07-23 Completed [facility] of PFIZER VACCINE 00:00:00 [facility] SARS-COV-2 COVID-19 2021-07-23 Completed [facility] of PFIZER VACCINE 00:00:00 [facility] SARS-COV-2 COVID-19 2021-07-23 Completed [facility] of PFIZER VACCINE 00:00:00 [facility] SARS-COV-2 COVID-19 2021-07-23 Completed [facility] of PFIZER VACCINE 00:00:00 [facility] SARS-COV-2 COVID-19 2021-07-23 Completed [facility] of PFIZER VACCINE 00:00:00 [facility] SARS-COV-2 COVID-19 2021-07-23 Completed [facility] of PFIZER VACCINE 00:00:00 [facility] SARS-COV-2 COVID-19 2021-07-23 Completed [facility] of PFIZER VACCINE 00:00:00 [facility] SARS-COV-2 COVID-19 2021-07-23 Completed [facility] of PFIZER VACCINE 00:00:00 [facility] SARS-COV-2 COVID-19 2021-07-23 Completed [facility] of PFIZER VACCINE 00:00:00 [facility] SARS-COV-2 COVID-19 2021-07-23 Completed [facility] of PFIZER VACCINE 00:00:00 [facility] SARS-COV-2 COVID-19 2021-07-23 Completed [facility] of PFIZER VACCINE 00:00:00 [facility] SARS-COV-2 COVID-19 2021-07-23 Completed [facility] of PFIZER VACCINE 00:00:00 [facility] SARS-COV-2 COVID-19 2021-07-23 Completed [facility] of PFIZER VACCINE 00:00:00 [facility] SARS-COV-2 COVID-19 2021-07-23 Completed [facility] of PFIZER VACCINE 00:00:00 [facility] SARS-COV-2 COVID-19 2021-07-23 Completed [facility] of PFIZER VACCINE 00:00:00 [facility] SARS-COV-2 COVID-19 2021-07-23 Completed [facility] of PFIZER VACCINE 00:00:00 [facility] SARS-COV-2 COVID-19 2021-07-23 Completed [facility] of PFIZER VACCINE 00:00:00 [facility] SARS-COV-2 COVID-19 2021-07-23 Completed [facility] of PFIZER VACCINE 00:00:00 [facility] SARS-COV-2 COVID-19 2021-07-23 Completed [facility] of PFIZER VACCINE 00:00:00 [facility] SARS-COV-2 COVID-19 2021-07-23 Completed [facility] of PFIZER VACCINE 00:00:00 [facility] SARS-COV-2 COVID-19 2021-07-23 Completed [facility] of PFIZER VACCINE 00:00:00 [facility] SARS-COV-2 COVID-19 2021-07-23 Completed [facility] of PFIZER VACCINE 00:00:00 [facility] SARS-COV-2 COVID-19 2021-07-23 Completed [facility] of PFIZER VACCINE 00:00:00 [facility] SARS-COV-2 COVID-19 2021-07-23 Completed [facility] of PFIZER VACCINE 00:00:00 [facility] SARS-COV-2 COVID-19 2021-07-23 Completed [facility] of PFIZER VACCINE 00:00:00 [facility] SARS-COV-2 COVID-19 2021-07-23 Completed [facility] of PFIZER VACCINE 00:00:00 [facility] SARS-COV-2 COVID-19 2021-07-23 Completed [facility] of PFIZER VACCINE 00:00:00 [facility] SARS-COV-2 COVID-19 2021-07-23 Completed [facility] of PFIZER VACCINE 00:00:00 [facility] SARS-COV-2 COVID-19 2021-07-23 Completed [facility] of PFIZER VACCINE 00:00:00 [facility] SARS-COV-2 COVID-19 2021-07-23 Completed [facility] of PFIZER VACCINE 00:00:00 [facility] SARS-COV-2 COVID-19 2021-07-23 Completed [facility] of PFIZER VACCINE 00:00:00 [facility] SARS-COV-2 COVID-19 2021-07-23 Completed [facility] of PFIZER VACCINE 00:00:00 [facility] SARS-COV-2 COVID-19 2021-07-23 Completed [facility] of PFIZER VACCINE 00:00:00 [facility] SARS-COV-2 COVID-19 2021-07-23 Completed [facility] of PFIZER VACCINE 00:00:00 [facility] SARS-COV-2 COVID-19 2021-07-23 Completed [facility] of PFIZER VACCINE 00:00:00 [facility] SARS-COV-2 COVID-19 2021-07-23 Completed [facility] of PFIZER VACCINE 00:00:00 [facility] SARS-COV-2 COVID-19 2021-07-23 Completed [facility] of PFIZER VACCINE 00:00:00 [facility] SARS-COV-2 COVID-19 2021-07-23 Completed [facility] of PFIZER VACCINE 00:00:00 [facility] SARS-COV-2 COVID-19 2021-07-23 Completed [facility] of PFIZER VACCINE 00:00:00 [facility] SARS-COV-2 COVID-19 2021-07-23 Completed [facility] of PFIZER VACCINE 00:00:00 [facility] SARS-COV-2 COVID-19 2021-07-23 Completed [facility] of PFIZER VACCINE 00:00:00 [facility] SARS-COV-2 COVID-19 2021-07-23 Completed [facility] of PFIZER VACCINE 00:00:00 [facility] SARS-COV-2 COVID-19 2021-07-23 Completed [facility] of PFIZER VACCINE 00:00:00 [facility] SARS-COV-2 COVID-19 2021-07-23 Completed [facility] of PFIZER VACCINE 00:00:00 [facility] SARS-COV-2 COVID-19 2021-07-23 Completed [facility] of PFIZER VACCINE 00:00:00 [facility] SARS-COV-2 COVID-19 2021-07-23 Completed [facility] of PFIZER VACCINE 00:00:00 [facility] Influenza Virus 2021-05-27 Completed [facility] Vaccine (3+ yrs) 00:00:00 [facility] Influenza Virus 2021-05-27 Completed [facility] Vaccine (3+ yrs) 00:00:00 [facility] Influenza Virus 2021-05-27 Completed [facility] Vaccine (3+ yrs) 00:00:00 [facility] Influenza Virus 2021-05-27 Completed [facility] Vaccine (3+ yrs) 00:00:00 [facility] Influenza Virus 2021-05-27 Completed [facility] Vaccine (3+ yrs) 00:00:00 [facility] Influenza Virus 2021-05-27 Completed [facility] Vaccine (3+ yrs) 00:00:00 [facility] Influenza Virus 2021-05-27 Completed [facility] Vaccine (3+ yrs) 00:00:00 [facility] Influenza Virus 2021-05-27 Completed [facility] Vaccine (3+ yrs) 00:00:00 [facility] Influenza Virus 2021-05-27 Completed [facility] Vaccine (3+ yrs) 00:00:00 [facility] Influenza Virus 2021-05-27 Completed [facility] Vaccine (3+ yrs) 00:00:00 [facility] Influenza Virus 2021-05-27 Completed [facility] Vaccine (3+ yrs) 00:00:00 [facility] Influenza Virus 2021-05-27 Completed [facility] Vaccine (3+ yrs) 00:00:00 [facility] Influenza Virus 2021-05-27 Completed [facility] Vaccine (3+ yrs) 00:00:00 [facility] Influenza Virus 2021-05-27 Completed [facility] Vaccine (3+ yrs) 00:00:00 [facility] Influenza Virus 2021-05-27 Completed [facility] Vaccine (3+ yrs) 00:00:00 [facility] Influenza Virus 2021-05-27 Completed [facility] Vaccine (3+ yrs) 00:00:00 [facility] Influenza Virus 2021-05-27 Completed [facility] Vaccine (3+ yrs) 00:00:00 [facility] Influenza Virus 2021-05-27 Completed [facility] y [...] [facility] Vaccine (3+ yrs) 00:00:00 [facility] Influenza Virus 2021-05-27 Completed [facility] Vaccine (3+ yrs) 00:00:00 [facility] Influenza Virus 2021-05-27 Completed [facility] Vaccine (3+ yrs) 00:00:00 [facility] Influenza Virus 2021-05-27 Completed [facility] [...] [facility] Vaccine (3+ yrs) 00:00:00 [facility] Influenza Virus 2021-05-27 Completed [facility] Vaccine (3+ yrs) 00:00:00 [facility] Influenza Virus 2021-05-27 Completed [facility]) 00:00:00 [facility] Influenza Virus 2021-05-27 Completed [facility] (3+ yrs) 00:00:00 [facility] Influenza Virus 2021-05-27 Completed [facility] (3+ yrs) 00:00:00 [facility] Influenza Virus 2021-05-27 Completed [facility] (3+ yrs) 00:00:00 [facility] Influenza Virus 2021-05-27 Completed [facility] (3+ yrs) 00:00:00 [facility] Influenza Virus 2021-05-27 Completed [facility] (3+ yrs) 00:00:00 [facility] Influenza Virus 2021-05-27 Completed [facility] (3+ yrs) 00:00:00 [facility] Influenza Virus 2021-05-27 Completed [facility] (3+ yrs) 00:00:00 [facility] Influenza Virus 2021-05-27 Completed [facility] (3+ yrs) 00:00:00 [facility] Influenza Virus 2021-05-27 Completed [facility] [...] [facility] (3+ yrs) 00:00:00 [facility] Influenza Virus 2021-05-27 Completed [facility] (3+ yrs) 00:00:00 [facility] Influenza Virus 2021-05-27 Completed [facility] (3+ yrs) 00:00:00 [facility] Influenza Virus 2021-05-27 Completed [facility] (3+ yrs) 00:00:00 [facility] Influenza Virus 2021-05-27 Completed [facility] (3+ yrs) 00:00:00 [facility] Influenza Virus 2021-05-27 Completed [facility] [...] [facility]ine (3+ yrs) 00:00:00 [facility] Influenza Virus 2021-05-27 Completed [facility] (3+ yrs) 00:00:00 [facility] Influenza Virus 2021-05-27 Completed [facility] (3+ yrs) 00:00:00 [facility] Influenza Virus 2021-05-27 Completed [facility] (3+ yrs) 00:00:00 [facility] SARS-COV-2 COVID-19 2020-12-13 Completed [facility] PFIZER VACCINE 00:00:00 [facility] SARS-COV-2 COVID-19 2020-12-13 Completed [facility] PFIZER VACCINE 00:00:00 [facility] SARS-COV-2 COVID-19 2020-12-13 Completed [facility] PFIZER VACCINE 00:00:00 [facility] SARS-COV-2 COVID-19 2020-12-13 Completed [facility] PFIZER VACCINE 00:00:00 [facility] SARS-COV-2 COVID-19 2020-12-13 Completed [facility] PFIZER VACCINE 00:00:00 [facility] SARS-COV-2 COVID-19 2020-12-13 Completed [facility] PFIZER VACCINE 00:00:00 [facility] SARS-COV-2 COVID-19 2020-12-13 Completed [facility] PFIZER VACCINE 00:00:00 [facility] SARS-COV-2 COVID-19 2020-12-13 Completed [facility] PFIZER VACCINE 00:00:00 [facility] SARS-COV-2 COVID-19 2020-12-13 Completed [facility] PFIZER VACCINE 00:00:00 [facility] SARS-COV-2 COVID-19 2020-12-13 Completed [facility] PFIZER VACCINE 00:00:00 [facility] SARS-COV-2 COVID-19 2020-12-13 Completed [facility] PFIZER VACCINE 00:00:00 [facility] SARS-COV-2 COVID-19 2020-12-13 Completed [facility] PFIZER VACCINE 00:00:00 [facility] SARS-COV-2 COVID-19 2020-12-13 Completed [facility] PFIZER VACCINE 00:00:00 [facility] SARS-COV-2 COVID-19 2020-12-13 Completed [facility] PFIZER VACCINE 00:00:00 [facility] SARS-COV-2 COVID-19 2020-12-13 Completed [facility] PFIZER VACCINE 00:00:00 [facility] SARS-COV-2 COVID-19 2020-12-13 Completed [facility] PFIZER VACCINE 00:00:00 [facility] SARS-COV-2 COVID-19 2020-12-13 Completed [facility] PFIZER VACCINE 00:00:00 [facility] SARS-COV-2 COVID-19 2020-12-13 Completed [facility] PFIZER VACCINE 00:00:00 [facility] SARS-COV-2 COVID-19 2020-12-13 Completed [facility] PFIZER VACCINE 00:00:00 [facility] SARS-COV-2 COVID-19 2020-12-13 Completed [facility] PFIZER VACCINE 00:00:00 [facility] SARS-COV-2 COVID-19 2020-12-13 Completed [facility] PFIZER VACCINE 00:00:00 [facility] SARS-COV-2 COVID-19 2020-12-13 Completed [facility] PFIZER VACCINE 00:00:00 [facility] SARS-COV-2 COVID-19 2020-12-13 Completed [facility] PFIZER VACCINE 00:00:00 [facility] SARS-COV-2 COVID-19 2020-12-13 Completed [facility] PFIZER VACCINE 00:00:00 [facility] SARS-COV-2 COVID-19 2020-12-13 Completed [facility] PFIZER VACCINE 00:00:00 [facility] SARS-COV-2 COVID-19 2020-12-13 Completed [facility] PFIZER VACCINE 00:00:00 [facility] SARS-COV-2 COVID-19 2020-12-13 Completed [facility] PFIZER VACCINE 00:00:00 [facility] SARS-COV-2 COVID-19 2020-12-13 Completed [facility] PFIZER VACCINE 00:00:00 [facility] SARS-COV-2 COVID-19 2020-12-13 Completed [facility] PFIZER VACCINE 00:00:00 [facility] SARS-COV-2 COVID-19 2020-12-13 Completed [facility] PFIZER VACCINE 00:00:00 [facility] SARS-COV-2 COVID-19 2020-12-13 Completed [facility] PFIZER VACCINE 00:00:00 [facility] SARS-COV-2 COVID-19 2020-12-13 Completed [facility] PFIZER VACCINE 00:00:00 [facility] SARS-COV-2 COVID-19 2020-12-13 Completed [facility] PFIZER VACCINE 00:00:00 [facility] SARS-COV-2 COVID-19 2020-12-13 Completed [facility] PFIZER VACCINE 00:00:00 [facility] SARS-COV-2 COVID-19 2020-12-13 Completed [facility] PFIZER VACCINE 00:00:00 [facility] SARS-COV-2 COVID-19 2020-12-13 Completed [facility] PFIZER VACCINE 00:00:00 [facility] SARS-COV-2 COVID-19 2020-12-13 Completed [facility] PFIZER VACCINE 00:00:00 [facility] SARS-COV-2 COVID-19 2020-12-13 Completed [facility] PFIZER VACCINE 00:00:00 [facility] SARS-COV-2 COVID-19 2020-12-13 Completed [facility] PFIZER VACCINE 00:00:00 [facility] SARS-COV-2 COVID-19 2020-12-13 Completed [facility] PFIZER VACCINE 00:00:00 [facility] SARS-COV-2 COVID-19 2020-12-13 Completed [facility] PFIZER VACCINE 00:00:00 [facility] SARS-COV-2 COVID-19 2020-12-13 Completed [facility] PFIZER VACCINE 00:00:00 [facility] SARS-COV-2 COVID-19 2020-12-13 Completed [facility] PFIZER VACCINE 00:00:00 [facility] SARS-COV-2 COVID-19 2020-12-13 Completed [facility] PFIZER VACCINE 00:00:00 [facility] SARS-COV-2 COVID-19 2020-12-13 Completed [facility] PFIZER VACCINE 00:00:00 [facility] SARS-COV-2 COVID-19 2020-12-13 Completed [facility] PFIZER VACCINE 00:00:00 [facility] SARS-COV-2 COVID-19 2020-12-13 Completed [facility] PFIZER VACCINE 00:00:00 [facility] SARS-COV-2 COVID-19 2020-12-13 Completed [facility] PFIZER VACCINE 00:00:00 [facility] SARS-COV-2 COVID-19 2020-12-13 Completed [facility] PFIZER VACCINE 00:00:00 [facility] SARS-COV-2 COVID-19 2020-12-13 Completed [facility] PFIZER VACCINE 00:00:00 [facility] SARS-COV-2 COVID-19 2020-12-13 Completed [facility] PFIZER VACCINE 00:00:00 [facility] SARS-COV-2 COVID-19 2020-12-13 Completed [facility] PFIZER VACCINE 00:00:00 [facility] SARS-COV-2 COVID-19 2020-12-13 Completed [facility] PFIZER VACCINE 00:00:00 [facility] SARS-COV-2 COVID-19 2020-12-13 Completed [facility] PFIZER VACCINE 00:00:00 [facility] SARS-COV-2 COVID-19 2020-12-13 Completed [facility] PFIZER VACCINE 00:00:00 [facility] SARS-COV-2 COVID-19 2020-12-13 Completed [facility] PFIZER VACCINE 00:00:00 [facility] SARS-COV-2 COVID-19 2020-12-13 Completed [facility] PFIZER VACCINE 00:00:00 [facility] SARS-COV-2 COVID-19 2020-12-13 Completed [facility] PFIZER VACCINE 00:00:00 [facility] SARS-COV-2 COVID-19 2020-12-13 Completed [facility] PFIZER VACCINE 00:00:00 [facility] SARS-COV-2 COVID-19 2020-12-13 Completed [facility] PFIZER VACCINE 00:00:00 [facility] SARS-COV-2 COVID-19 2020-12-13 Completed [facility] PFIZER VACCINE 00:00:00 [facility] SARS-COV-2 COVID-19 2020-12-13 Completed [facility] PFIZER VACCINE 00:00:00 [facility] SARS-COV-2 COVID-19 2020-12-13 Completed [facility] PFIZER VACCINE 00:00:00 [facility] SARS-COV-2 COVID-19 2020-12-13 Completed [facility] PFIZER VACCINE 00:00:00 [facility] SARS-COV-2 COVID-19 2020-12-13 Completed [facility] PFIZER VACCINE 00:00:00 [facility] SARS-COV-2 COVID-19 2020-12-13 Completed [facility] PFIZER VACCINE 00:00:00 [facility] SARS-COV-2 COVID-19 2020-12-13 Completed [facility] PFIZER VACCINE 00:00:00 [facility] SARS-COV-2 COVID-19 2020-12-13 Completed [facility] PFIZER VACCINE 00:00:00 [facility] SARS-COV-2 COVID-19 2020-12-13 Completed [facility] PFIZER VACCINE 00:00:00 [facility] SARS-COV-2 COVID-19 2020-12-13 Completed [facility] PFIZER VACCINE 00:00:00 [facility] SARS-COV-2 COVID-19 2020-12-13 Completed [facility] PFIZER VACCINE 00:00:00 [facility] SARS-COV-2 COVID-19 2020-12-13 Completed [facility] PFIZER VACCINE 00:00:00 [facility] SARS-COV-2 COVID-19 2020-12-13 Completed [facility] PFIZER VACCINE 00:00:00 [facility] SARS-COV-2 COVID-19 2020-12-13 Completed [facility] PFIZER VACCINE 00:00:00 [facility] SARS-COV-2 COVID-19 2020-12-13 Completed [facility] PFIZER VACCINE 00:00:00 [facility] SARS-COV-2 COVID-19 2020-12-13 Completed [facility] PFIZER VACCINE 00:00:00 [facility] SARS-COV-2 COVID-19 2020-12-13 Completed [facility] PFIZER VACCINE 00:00:00 [facility] SARS-COV-2 COVID-19 2020-12-13 Completed [facility] PFIZER VACCINE 00:00:00 [facility] SARS-COV-2 COVID-19 2020-12-13 Completed [facility] PFIZER VACCINE 00:00:00 [facility] SARS-COV-2 COVID-19 2020-12-13 Completed [facility] PFIZER VACCINE 00:00:00 [facility] SARS-COV-2 COVID-19 2020-12-13 Completed [facility] PFIZER VACCINE 00:00:00 [facility] SARS-COV-2 COVID-19 2020-12-13 Completed [facility] PFIZER VACCINE 00:00:00 [facility] SARS-COV-2 COVID-19 2020-12-13 Completed [facility] PFIZER VACCINE 00:00:00 [facility] SARS-COV-2 COVID-19 2020-12-13 Completed [facility] PFIZER VACCINE 00:00:00 [facility] SARS-COV-2 COVID-19 2020-12-13 Completed [facility] PFIZER VACCINE 00:00:00 [facility] SARS-COV-2 COVID-19 2020-12-13 Completed [facility] PFIZER VACCINE 00:00:00 [facility] SARS-COV-2 COVID-19 2020-12-13 Completed [facility] PFIZER VACCINE 00:00:00 [facility] SARS-COV-2 COVID-19 2020-12-13 Completed [facility] PFIZER VACCINE 00:00:00 [facility] SARS-COV-2 COVID-19 2020-12-13 Completed [facility] PFIZER VACCINE 00:00:00 [facility] SARS-COV-2 COVID-19 2020-12-13 Completed [facility] PFIZER VACCINE 00:00:00 [facility] SARS-COV-2 COVID-19 2020-12-13 Completed [facility] PFIZER VACCINE 00:00:00 [facility] SARS-COV-2 COVID-19 2020-12-13 Completed [facility] PFIZER VACCINE 00:00:00 [facility] SARS-COV-2 COVID-19 2020-12-13 Completed [facility] PFIZER VACCINE 00:00:00 [facility] SARS-COV-2 COVID-19 2020-12-13 Completed [facility] PFIZER VACCINE 00:00:00 [facility] SARS-COV-2 COVID-19 2020-12-13 Completed [facility] PFIZER VACCINE 00:00:00 [facility] SARS-COV-2 COVID-19 2020-12-13 Completed [facility] PFIZER VACCINE 00:00:00 [facility] SARS-COV-2 COVID-19 2020-12-13 Completed [facility] PFIZER VACCINE 00:00:00 [facility] SARS-COV-2 COVID-19 2020-12-13 Completed [facility] PFIZER VACCINE 00:00:00 [facility] SARS-COV-2 COVID-19 2020-12-13 Completed [facility] PFIZER VACCINE 00:00:00 [facility] SARS-COV-2 COVID-19 2020-12-13 Completed [facility] PFIZER VACCINE 00:00:00 [facility] SARS-COV-2 COVID-19 2020-12-13 Completed [facility] PFIZER VACCINE 00:00:00 [facility] SARS-COV-2 COVID-19 2020-12-13 Completed [facility] PFIZER VACCINE 00:00:00 [facility] SARS-COV-2 COVID-19 2020-12-13 Completed [facility] PFIZER VACCINE 00:00:00 [facility] SARS-COV-2 COVID-19 2020-12-13 Completed [facility] PFIZER VACCINE 00:00:00 [facility] SARS-COV-2 COVID-19 2020-12-13 Completed [facility] PFIZER VACCINE 00:00:00 [facility] SARS-COV-2 COVID-19 2020-12-13 Completed [facility] PFIZER VACCINE 00:00:00 [facility] SARS-COV-2 COVID-19 2020-12-13 Completed [facility] PFIZER VACCINE 00:00:00 [facility] SARS-COV-2 COVID-19 2020-12-13 Completed [facility] PFIZER VACCINE 00:00:00 [facility] SARS-COV-2 COVID-19 2020-11-22 Completed [facility] PFIZER VACCINE 00:00:00 [facility] SARS-COV-2 COVID-19 2020-11-22 Completed [facility] PFIZER VACCINE 00:00:00 [facility] SARS-COV-2 COVID-19 2020-11-22 Completed [facility] PFIZER VACCINE 00:00:00 [facility] SARS-COV-2 COVID-19 2020-11-22 Completed [facility] PFIZER VACCINE 00:00:00 [facility] SARS-COV-2 COVID-19 2020-11-22 Completed [facility] PFIZER VACCINE 00:00:00 [facility] SARS-COV-2 COVID-19 2020-11-22 Completed [facility] PFIZER VACCINE 00:00:00 [facility] SARS-COV-2 COVID-19 2020-11-22 Completed [facility] PFIZER VACCINE 00:00:00 [facility] SARS-COV-2 COVID-19 2020-11-22 Completed [facility] PFIZER VACCINE 00:00:00 [facility] SARS-COV-2 COVID-19 2020-11-22 Completed [facility] PFIZER VACCINE 00:00:00 [facility] SARS-COV-2 COVID-19 2020-11-22 Completed [facility] PFIZER VACCINE 00:00:00 [facility] SARS-COV-2 COVID-19 2020-11-22 Completed [facility] PFIZER VACCINE 00:00:00 [facility] SARS-COV-2 COVID-19 2020-11-22 Completed [facility] PFIZER VACCINE 00:00:00 [facility] SARS-COV-2 COVID-19 2020-11-22 Completed [facility] PFIZER VACCINE 00:00:00 [facility] SARS-COV-2 COVID-19 2020-11-22 Completed [facility] PFIZER VACCINE 00:00:00 [facility] SARS-COV-2 COVID-19 2020-11-22 Completed [facility] PFIZER VACCINE 00:00:00 [facility] SARS-COV-2 COVID-19 2020-11-22 Completed [facility] PFIZER VACCINE 00:00:00 [facility] SARS-COV-2 COVID-19 2020-11-22 Completed [facility] PFIZER VACCINE 00:00:00 [facility] SARS-COV-2 COVID-19 2020-11-22 Completed [facility] PFIZER VACCINE 00:00:00 [facility] SARS-COV-2 COVID-19 2020-11-22 Completed [facility] PFIZER VACCINE 00:00:00 [facility] SARS-COV-2 COVID-19 2020-11-22 Completed [facility] PFIZER VACCINE 00:00:00 [facility] SARS-COV-2 COVID-19 2020-11-22 Completed [facility] PFIZER VACCINE 00:00:00 [facility] SARS-COV-2 COVID-19 2020-11-22 Completed [facility] PFIZER VACCINE 00:00:00 [facility] SARS-COV-2 COVID-19 2020-11-22 Completed [facility] PFIZER VACCINE 00:00:00 [facility] SARS-COV-2 COVID-19 2020-11-22 Completed [facility] PFIZER VACCINE 00:00:00 [facility] SARS-COV-2 COVID-19 2020-11-22 Completed [facility] PFIZER VACCINE 00:00:00 [facility] SARS-COV-2 COVID-19 2020-11-22 Completed [facility] PFIZER VACCINE 00:00:00 [facility] SARS-COV-2 COVID-19 2020-11-22 Completed [facility] PFIZER VACCINE 00:00:00 [facility] SARS-COV-2 COVID-19 2020-11-22 Completed [facility] PFIZER VACCINE 00:00:00 [facility] SARS-COV-2 COVID-19 2020-11-22 Completed [facility] PFIZER VACCINE 00:00:00 [facility] SARS-COV-2 COVID-19 2020-11-22 Completed [facility] PFIZER VACCINE 00:00:00 [facility] SARS-COV-2 COVID-19 2020-11-22 Completed [facility] PFIZER VACCINE 00:00:00 [facility] SARS-COV-2 COVID-19 2020-11-22 Completed [facility] PFIZER VACCINE 00:00:00 [facility] SARS-COV-2 COVID-19 2020-11-22 Completed [facility] PFIZER VACCINE 00:00:00 [facility] SARS-COV-2 COVID-19 2020-11-22 Completed [facility] PFIZER VACCINE 00:00:00 [facility] SARS-COV-2 COVID-19 2020-11-22 Completed [facility] PFIZER VACCINE 00:00:00 [facility] SARS-COV-2 COVID-19 2020-11-22 Completed [facility] PFIZER VACCINE 00:00:00 [facility] SARS-COV-2 COVID-19 2020-11-22 Completed [facility] PFIZER VACCINE 00:00:00 [facility] SARS-COV-2 COVID-19 2020-11-22 Completed [facility] PFIZER VACCINE 00:00:00 [facility] SARS-COV-2 COVID-19 2020-11-22 Completed [facility] PFIZER VACCINE 00:00:00 [facility] SARS-COV-2 COVID-19 2020-11-22 Completed [facility] PFIZER VACCINE 00:00:00 [facility] SARS-COV-2 COVID-19 2020-11-22 Completed [facility] PFIZER VACCINE 00:00:00 [facility] SARS-COV-2 COVID-19 2020-11-22 Completed [facility] PFIZER VACCINE 00:00:00 [facility] SARS-COV-2 COVID-19 2020-11-22 Completed [facility] PFIZER VACCINE 00:00:00 [facility] SARS-COV-2 COVID-19 2020-11-22 Completed [facility] PFIZER VACCINE 00:00:00 [facility] SARS-COV-2 COVID-19 2020-11-22 Completed [facility] PFIZER VACCINE 00:00:00 [facility] SARS-COV-2 COVID-19 2020-11-22 Completed [facility] PFIZER VACCINE 00:00:00 [facility] SARS-COV-2 COVID-19 2020-11-22 Completed [facility] PFIZER VACCINE 00:00:00 [facility] SARS-COV-2 COVID-19 2020-11-22 Completed [facility] PFIZER VACCINE 00:00:00 [facility] SARS-COV-2 COVID-19 2020-11-22 Completed [facility] PFIZER VACCINE 00:00:00 [facility] SARS-COV-2 COVID-19 2020-11-22 Completed [facility] PFIZER VACCINE 00:00:00 [facility] SARS-COV-2 COVID-19 2020-11-22 Completed [facility] PFIZER VACCINE 00:00:00 [facility] SARS-COV-2 COVID-19 2020-11-22 Completed [facility] PFIZER VACCINE 00:00:00 [facility] SARS-COV-2 COVID-19 2020-11-22 Completed [facility] PFIZER VACCINE 00:00:00 [facility] SARS-COV-2 COVID-19 2020-11-22 Completed [facility] PFIZER VACCINE 00:00:00 [facility] SARS-COV-2 COVID-19 2020-11-22 Completed [facility] PFIZER VACCINE 00:00:00 [facility] SARS-COV-2 COVID-19 2020-11-22 Completed [facility] PFIZER VACCINE 00:00:00 [facility] SARS-COV-2 COVID-19 2020-11-22 Completed [facility] PFIZER VACCINE 00:00:00 [facility] SARS-COV-2 COVID-19 2020-11-22 Completed [facility] PFIZER VACCINE 00:00:00 [facility] SARS-COV-2 COVID-19 2020-11-22 Completed [facility] PFIZER VACCINE 00:00:00 [facility] SARS-COV-2 COVID-19 2020-11-22 Completed [facility] PFIZER VACCINE 00:00:00 [facility] SARS-COV-2 COVID-19 2020-11-22 Completed [facility] PFIZER VACCINE 00:00:00 [facility] SARS-COV-2 COVID-19 2020-11-22 Completed [facility] PFIZER VACCINE 00:00:00 [facility] SARS-COV-2 COVID-19 2020-11-22 Completed [facility] PFIZER VACCINE 00:00:00 [facility] SARS-COV-2 COVID-19 2020-11-22 Completed [facility] PFIZER VACCINE 00:00:00 [facility] SARS-COV-2 COVID-19 2020-11-22 Completed [facility] PFIZER VACCINE 00:00:00 [facility] SARS-COV-2 COVID-19 2020-11-22 Completed [facility] PFIZER VACCINE 00:00:00 [facility] SARS-COV-2 COVID-19 2020-11-22 Completed [facility] PFIZER VACCINE 00:00:00 [facility] SARS-COV-2 COVID-19 2020-11-22 Completed [facility] PFIZER VACCINE 00:00:00 [facility] SARS-COV-2 COVID-19 2020-11-22 Completed [facility] PFIZER VACCINE 00:00:00 [facility] SARS-COV-2 COVID-19 2020-11-22 Completed [facility] PFIZER VACCINE 00:00:00 [facility] SARS-COV-2 COVID-19 2020-11-22 Completed [facility] PFIZER VACCINE 00:00:00 [facility] SARS-COV-2 COVID-19 2020-11-22 Completed [facility] PFIZER VACCINE 00:00:00 [facility] SARS-COV-2 COVID-19 2020-11-22 Completed [facility] PFIZER VACCINE 00:00:00 [facility] SARS-COV-2 COVID-19 2020-11-22 Completed [facility] PFIZER VACCINE 00:00:00 [facility] SARS-COV-2 COVID-19 2020-11-22 Completed [facility] PFIZER VACCINE 00:00:00 [facility] SARS-COV-2 COVID-19 2020-11-22 Completed [facility] PFIZER VACCINE 00:00:00 [facility] SARS-COV-2 COVID-19 2020-11-22 Completed [facility] PFIZER VACCINE 00:00:00 [facility] SARS-COV-2 COVID-19 2020-11-22 Completed [facility] PFIZER VACCINE 00:00:00 [facility] SARS-COV-2 COVID-19 2020-11-22 Completed [facility] PFIZER VACCINE 00:00:00 [facility] SARS-COV-2 COVID-19 2020-11-22 Completed [facility] PFIZER VACCINE 00:00:00 [facility] SARS-COV-2 COVID-19 2020-11-22 Completed [facility] PFIZER VACCINE 00:00:00 [facility] SARS-COV-2 COVID-19 2020-11-22 Completed [facility] PFIZER VACCINE 00:00:00 [facility] SARS-COV-2 COVID-19 2020-11-22 Completed [facility] PFIZER VACCINE 00:00:00 [facility] SARS-COV-2 COVID-19 2020-11-22 Completed [facility] PFIZER VACCINE 00:00:00 [facility] SARS-COV-2 COVID-19 2020-11-22 Completed [facility] PFIZER VACCINE 00:00:00 [facility] SARS-COV-2 COVID-19 2020-11-22 Completed [facility] PFIZER VACCINE 00:00:00 [facility] SARS-COV-2 COVID-19 2020-11-22 Completed [facility] PFIZER VACCINE 00:00:00 [facility] SARS-COV-2 COVID-19 2020-11-22 Completed [facility] PFIZER VACCINE 00:00:00 [facility] SARS-COV-2 COVID-19 2020-11-22 Completed [facility] PFIZER VACCINE 00:00:00 [facility] SARS-COV-2 COVID-19 2020-11-22 Completed [facility] PFIZER VACCINE 00:00:00 [facility] SARS-COV-2 COVID-19 2020-11-22 Completed [facility] PFIZER VACCINE 00:00:00 [facility] SARS-COV-2 COVID-19 2020-11-22 Completed [facility] of PFIZER VACCINE 00:00:00 [facility] SARS-COV-2 COVID-19 2020-11-22 Completed [facility] PFIZER VACCINE 00:00:00 [facility] SARS-COV-2 COVID-19 2020-11-22 Completed [facility] of PFIZER VACCINE 00:00:00 [facility] SARS-COV-2 COVID-19 2020-11-22 Completed [facility] of PFIZER VACCINE 00:00:00 [facility] SARS-COV-2 COVID-19 2020-11-22 Completed [facility] of PFIZER VACCINE 00:00:00 [facility] SARS-COV-2 COVID-19 2020-11-22 Completed [facility] of PFIZER VACCINE 00:00:00 [facility] SARS-COV-2 COVID-19 2020-11-22 Completed [facility] of PFIZER VACCINE 00:00:00 [facility] SARS-COV-2 COVID-19 2020-11-22 Completed [facility] of PFIZER VACCINE 00:00:00 [facility] SARS-COV-2 COVID-19 2020-11-22 Completed [facility] of PFIZER VACCINE 00:00:00 [facility] SARS-COV-2 COVID-19 2020-11-22 Completed [facility] of PFIZER VACCINE 00:00:00 [facility] SARS-COV-2 COVID-19 2020-11-22 Completed [facility] of PFIZER VACCINE 00:00:00 [facility] SARS-COV-2 COVID-19 2020-11-22 Completed [facility] of PFIZER VACCINE 00:00:00 [facility] SARS-COV-2 COVID-19 2020-11-22 Completed [facility] of PFIZER VACCINE 00:00:00 [facility] SARS-COV-2 COVID-19 2020-11-22 Completed [facility] of PFIZER VACCINE 00:00:00 [facility] SARS-COV-2 COVID-19 2020-11-22 Completed [facility] PFIZER VACCINE 00:00:00 [facility] SARS-COV-2 COVID-19 2020-11-22 Completed [facility] PFIZER VACCINE 00:00:00 [facility] SARS-COV-2 COVID-19 2020-11-22 Completed [facility] of PFIZER VACCINE 00:00:00 [facility] Influenza Virus 2020-05-27 Completed [facility] [...] 2019-08-10 Completed [facility] Polysaccharide, 00:00:00 [facility] PPSV23 (PNEUMOVAX) [facility] TDAP (ADACEL) VACCINE 2019-08-10 Completed [facility] 00:00:00 [facility] TDAP 2019-08-10 Completed [facility] of 00:00:00 [facility] Pneumococcal 2019-08-10 Completed [facility] f Polysaccharide, 00:00:00 [facility] PPSV23 (PNEUMOVAX) [facility] TDAP (ADACEL) VACCINE 2019-08-10 Completed [facility] 00:00:00 [facility] TDAP 2019-08-10 Completed [facility] of 00:00:00 [facility] Pneumococcal 2019-08-10 Completed [facility] f Polysaccharide, 00:00:00 [facility] PPSV23 (PNEUMOVAX) [facility] TDAP (ADACEL) VACCINE 2019-08-10 Completed [facility] 00:00:00 [facility] TDAP 2019-08-10 Completed [facility] of 00:00:00 [facility] Pneumococcal 2019-08-10 Completed [facility] Polysaccharide, 00:00:00 [facility] PPSV23 (PNEUMOVAX) [facility] TDAP (ADACEL) VACCINE 2019-08-10 Completed [facility] 00:00:00 [facility] TDAP 2019-08-10 Completed [facility] of 00:00:00 [facility] Pneumococcal 2019-08-10 Completed [facility] f Polysaccharide, 00:00:00 [facility] PPSV23 (PNEUMOVAX) [facility] TDAP (ADACEL) VACCINE 2019-08-10 Completed [facility] 00:00:00 [facility] TDAP 2019-08-10 Completed [facility] of 00:00:00 [facility] Pneumococcal 2019-08-10 Completed [facility] Polysaccharide, 00:00:00 [facility] PPSV23 (PNEUMOVAX) [facility] TDAP (ADACEL) VACCINE 2019-08-10 Completed [facility] 00:00:00 [facility] TDAP 2019-08-10 Completed [facility] of 00:00:00 [facility] Pneumococcal 2019-08-10 Completed [facility] f Polysaccharide, 00:00:00 [facility] PPSV23 (PNEUMOVAX) [facility] TDAP (ADACEL) VACCINE 2019-08-10 Completed [facility] 00:00:00 [facility] TDAP 2019-08-10 Completed [facility] of 00:00:00 [facility] Pneumococcal 2019-08-10 Completed [facility] f Polysaccharide, 00:00:00 [facility] PPSV23 (PNEUMOVAX) [facility] TDAP (ADACEL) VACCINE 2019-08-10 Completed [facility] vers[facility] of 00:00:00 [facility] TDAP 2019-08-10 Completed [facility] 00:00:00 [facility] Pneumococcal 2019-08-10 Completed [facility] f Polysaccharide, 00:00:00 [facility] PPSV23 (PNEUMOVAX) [facility] TDAP (ADACEL) VACCINE 2019-08-10 Completed [facility] 00:00:00 [facility] TDAP 2019-08-10 Completed [facility] of 00:00:00 [facility] Pneumococcal 2019-08-10 Completed [facility] f Polysaccharide, 00:00:00 [facility] PPSV23 (PNEUMOVAX) [facility] TDAP (ADACEL) VACCINE 2019-08-10 Completed [facility] of 00:00:00 [facility] TDAP 2019-08-10 Completed [facility] of 00:00:00 [facility] Pneumococcal 2019-08-10 Completed [facility] f Polysaccharide, 00:00:00 [facility] PPSV23 (PNEUMOVAX) [facility] TDAP (ADACEL) VACCINE 2019-08-10 Completed [facility] of 00:00:00 [facility] TDAP 2019-08-10 Completed [facility] of 00:00:00 [facility] Pneumococcal 2019-08-10 Completed [facility] Polysaccharide, 00:00:00 [facility] PPSV23 (PNEUMOVAX) [facility] TDAP (ADACEL) VACCINE 2019-08-10 Completed [facility] of 00:00:00 [facility] TDAP 2019-08-10 Completed [facility] of 00:00:00 [facility] Pneumococcal 2019-08-10 Completed [facility] f Polysaccharide, 00:00:00 [facility] PPSV23 (PNEUMOVAX) [facility] TDAP (ADACEL) VACCINE 2019-08-10 Completed [facility] of 00:00:00 [facility] TDAP 2019-08-10 Completed [facility] of 00:00:00 [facility] Pneumococcal 2019-08-10 Completed [facility] o f Polysaccharide, 00:00:00 [facility] PPSV23 (PNEUMOVAX) [facility] TDAP (ADACEL) VACCINE 2019-08-10 Completed [facility] 00:00:00 [facility] TDAP 2019-08-10 Completed [facility] 00:00:00 [facility] Pneumococcal 2019-08-10 Completed [facility] f Polysaccharide, 00:00:00 [facility] PPSV23 (PNEUMOVAX) [facility] TDAP (ADACEL) VACCINE 2019-08-10 Completed [facility] 00:00:00 [facility] TDAP 2019-08-10 Completed [facility] of 00:00:00 [facility] Pneumococcal 2019-08-10 Completed [facility] o f Polysaccharide, 00:00:00 [facility] PPSV23 (PNEUMOVAX) [facility] TDAP (ADACEL) VACCINE 2019-08-10 Completed [facility] 00:00:00 [facility] TDAP 2019-08-10 Completed [facility] of 00:00:00 [facility] Pneumococcal 2019-08-10 Completed [facility] o f Polysaccharide, 00:00:00 [facility] PPSV23 (PNEUMOVAX) [facility] TDAP (ADACEL) VACCINE 2019-08-10 Completed [facility] vers[facility] of 00:00:00 [facility] TDAP 2019-08-10 Completed [facility] of 00:00:00 [facility] Pneumococcal 2019-08-10 Completed [facility] f Polysaccharide, 00:00:00 [facility] PPSV23 (PNEUMOVAX) [facility] TDAP (ADACEL) VACCINE 2019-08-10 Completed [facility] of 00:00:00 [facility] TDAP 2019-08-10 Completed [facility] of 00:00:00 [facility] Pneumococcal 2019-08-10 Completed [facility] f Polysaccharide, 00:00:00 [facility] PPSV23 (PNEUMOVAX) [facility] TDAP (ADACEL) VACCINE 2019-08-10 Completed [facility] vers[facility] of 00:00:00 [facility] TDAP 2019-08-10 Completed [facility] of 00:00:00 [facility] Pneumococcal 2019-08-10 Completed [facility] o f Polysaccharide, 00:00:00 [facility] PPSV23 (PNEUMOVAX) [facility] TDAP (ADACEL) VACCINE 2019-08-10 Completed [facility] vers[facility] of 00:00:00 [facility] TDAP 2019-08-10 Completed [facility] of 00:00:00 [facility] Pneumococcal 2019-08-10 Completed [facility] o f Polysaccharide, 00:00:00 [facility] PPSV23 (PNEUMOVAX) [facility] TDAP (ADACEL) VACCINE 2019-08-10 Completed [facility] 00:00:00 [facility] TDAP 2019-08-10 Completed [facility] of 00:00:00 [facility] Pneumococcal 2019-08-10 Completed [facility] o f Polysaccharide, 00:00:00 [facility] PPSV23 (PNEUMOVAX) [facility] TDAP (ADACEL) VACCINE 2019-08-10 Completed [facility] 00:00:00 [facility] TDAP 2019-08-10 Completed [facility] of 00:00:00 [facility] Pneumococcal 2019-08-10 Completed [facility] o f Polysaccharide, 00:00:00 [facility] PPSV23 (PNEUMOVAX) [facility] TDAP (ADACEL) VACCINE 2019-08-10 Completed [facility] vers[facility] of 00:00:00 [facility] TDAP 2019-08-10 Completed [facility] of 00:00:00 [facility] Pneumococcal 2019-08-10 Completed [facility] o f Polysaccharide, 00:00:00 [facility] PPSV23 (PNEUMOVAX) [facility] TDAP (ADACEL) VACCINE 2019-08-10 Completed [facility] vers[facility] of 00:00:00 [facility] TDAP 2019-08-10 Completed [facility] of 00:00:00 [facility] Pneumococcal 2019-08-10 Completed [facility] o f Polysaccharide, 00:00:00 [facility] PPSV23 (PNEUMOVAX) [facility] TDAP (ADACEL) VACCINE 2019-08-10 Completed [facility] 00:00:00 [facility] TDAP 2019-08-10 Completed [facility] of 00:00:00 [facility] Pneumococcal 2019-08-10 Completed [facility] o f Polysaccharide, 00:00:00 [facility] PPSV23 (PNEUMOVAX) [facility] TDAP (ADACEL) VACCINE 2019-08-10 Completed [facility] vers[facility] of 00:00:00 [facility] TDAP 2019-08-10 Completed [facility] of 00:00:00 [facility] Pneumococcal 2019-08-10 Completed [facility] o f Polysaccharide, 00:00:00 [facility] PPSV23 (PNEUMOVAX) [facility] TDAP (ADACEL) VACCINE 2019-08-10 Completed [facility] vers[facility] of 00:00:00 [facility] TDAP 2019-08-10 Completed [facility] of 00:00:00 [facility] Pneumococcal 2019-08-10 Completed [facility] o f Polysaccharide, 00:00:00 [facility] PPSV23 (PNEUMOVAX) [facility] TDAP (ADACEL) VACCINE 2019-08-10 Completed [facility] 00:00:00 [facility] TDAP 2019-08-10 Completed [facility] of 00:00:00 [facility] Pneumococcal 2019-08-10 Completed [facility] o f Polysaccharide, 00:00:00 [facility] PPSV23 (PNEUMOVAX) [facility] TDAP (ADACEL) VACCINE 2019-08-10 Completed [facility] 00:00:00 [facility] TDAP 2019-08-10 Completed [facility] of 00:00:00 [facility] Pneumococcal 2019-08-10 Completed [facility] o f Polysaccharide, 00:00:00 [facility] PPSV23 (PNEUMOVAX) [facility] TDAP (ADACEL) VACCINE 2019-08-10 Completed [facility] 00:00:00 [facility] TDAP 2019-08-10 Completed [facility] of 00:00:00 [facility] Pneumococcal 2019-08-10 Completed [facility] o f Polysaccharide, 00:00:00 [facility] PPSV23 (PNEUMOVAX) [facility] TDAP (ADACEL) VACCINE 2019-08-10 Completed [facility] vers[facility] of 00:00:00 [facility] TDAP 2019-08-10 Completed [facility] of 00:00:00 [facility] Pneumococcal 2019-08-10 Completed [facility] o f Polysaccharide, 00:00:00 [facility] PPSV23 (PNEUMOVAX) [facility] TDAP (ADACEL) VACCINE 2019-08-10 Completed [facility] 00:00:00 [facility] TDAP 2019-08-10 Completed [facility] of 00:00:00 [facility] Pneumococcal 2019-08-10 Completed [facility] o f Polysaccharide, 00:00:00 [place] [facility] PPSV23 (PNEUMOVAX) [facility] TDAP (ADACEL) VACCINE 2019-08-10 Completed [facility] vers[facility] of 00:00:00 [facility] TDAP 2019-08-10 Completed [facility] of 00:00:00 [facility] Pneumococcal 2019-08-10 Completed [facility] o f Polysaccharide, 00:00:00 [place] [facility] PPSV23 (PNEUMOVAX) [facility] TDAP (ADACEL) VACCINE 2019-08-10 Completed [facility] of 00:00:00 [facility] TDAP 2019-08-10 Completed [facility] of 00:00:00 [facility] Pneumococcal 2019-08-10 Completed [facility] o f Polysaccharide, 00:00:00 [place] [facility] PPSV23 (PNEUMOVAX) [facility] TDAP (ADACEL) VACCINE 2019-08-10 Completed [facility] vers[facility] of 00:00:00 [facility] TDAP 2019-08-10 Completed [facility] of 00:00:00 [facility] Pneumococcal 2019-08-10 Completed [facility] o f Polysaccharide, 00:00:00 [facility] PPSV23 (PNEUMOVAX) [facility] TDAP (ADACEL) VACCINE 2019-08-10 Completed [facility] of 00:00:00 [facility] TDAP 2019-08-10 Completed [facility] of 00:00:00 [facility] Pneumococcal 2019-08-10 Completed [facility] o f Polysaccharide, 00:00:00 [place] [facility] PPSV23 (PNEUMOVAX) [facility] TDAP (ADACEL) VACCINE 2019-08-10 Completed [facility] 00:00:00 [facility] TDAP 2019-08-10 Completed [facility] of 00:00:00 [facility] Pneumococcal 2019-08-10 Completed [facility] o f Polysaccharide, 00:00:00 [place] [facility] PPSV23 (PNEUMOVAX) [facility] TDAP (ADACEL) VACCINE 2019-08-10 Completed [facility] 00:00:00 [facility] TDAP 2019-08-10 Completed [facility] of 00:00:00 [facility] Pneumococcal 2019-08-10 Completed [facility] o f Polysaccharide, 00:00:00 [facility] PPSV23 (PNEUMOVAX) [facility] TDAP (ADACEL) VACCINE 2019-08-10 Completed [facility] vers[facility] of 00:00:00 [facility] TDAP 2019-08-10 Completed [facility] 00:00:00 [facility] Pneumococcal 2019-08-10 Completed [facility] o f Polysaccharide, 00:00:00 [place] [facility] PPSV23 (PNEUMOVAX) [facility] TDAP (ADACEL) VACCINE 2019-08-10 Completed [facility] of 00:00:00 [facility] TDAP 2019-08-10 Completed [facility] of 00:00:00 [facility] Pneumococcal 2019-08-10 Completed [facility] o f Polysaccharide, 00:00:00 [place] [facility] PPSV23 (PNEUMOVAX) [facility] TDAP (ADACEL) VACCINE 2019-08-10 Completed [facility] of 00:00:00 [facility] TDAP 2019-08-10 Completed [facility] 00:00:00 [facility] Pneumococcal 2019-08-10 Completed [facility] o f Polysaccharide, 00:00:00 [place] [facility] PPSV23 (PNEUMOVAX) [facility] TDAP (ADACEL) VACCINE 2019-08-10 Completed [facility] 00:00:00 [facility] TDAP 2019-08-10 Completed [facility] of 00:00:00 [facility] Pneumococcal 2019-08-10 Completed [facility] o f Polysaccharide, 00:00:00 [place] [facility] PPSV23 (PNEUMOVAX) [facility] TDAP (ADACEL) VACCINE 2019-08-10 Completed [facility] 00:00:00 [facility] TDAP 2019-08-10 Completed [facility] of 00:00:00 [facility] Pneumococcal 2019-08-10 Completed [facility] o f Polysaccharide, 00:00:00 [place] [facility] PPSV23 (PNEUMOVAX) [facility] TDAP (ADACEL) VACCINE 2019-08-10 Completed [facility] 00:00:00 [facility] TDAP 2019-08-10 Completed [facility] of 00:00:00 [facility] Pneumococcal 2019-08-10 Completed [facility] o f Polysaccharide, 00:00:00 [place] [facility] PPSV23 (PNEUMOVAX) [facility] TDAP (ADACEL) VACCINE 2019-08-10 Completed [facility] 00:00:00 [facility] TDAP 2019-08-10 Completed [facility] of 00:00:00 [facility] Pneumococcal 2019-08-10 Completed [facility] o f Polysaccharide, 00:00:00 [place] [facility] PPSV23 (PNEUMOVAX) [facility] TDAP (ADACEL) VACCINE 2019-08-10 Completed [facility] 00:00:00 [facility] TDAP 2019-08-10 Completed [facility] of 00:00:00 [facility] Pneumococcal 2019-08-10 Completed [facility] o f Polysaccharide, 00:00:00 [place] [facility] PPSV23 (PNEUMOVAX) [facility] TDAP (ADACEL) VACCINE 2019-08-10 Completed [facility] 00:00:00 [facility] TDAP 2019-08-10 Completed [facility] of 00:00:00 [facility] Pneumococcal 2019-08-10 Completed [facility] o f Polysaccharide, 00:00:00 [place] [facility] PPSV23 (PNEUMOVAX) [facility] TDAP (ADACEL) VACCINE 2019-08-10 Completed [facility] 00:00:00 [facility] TDAP 2019-08-10 Completed [facility] of 00:00:00 [facility] Pneumococcal 2019-08-10 Completed [facility] o f Polysaccharide, 00:00:00 [place] [facility] PPSV23 (PNEUMOVAX) [facility] TDAP (ADACEL) VACCINE 2019-08-10 Completed [facility] 00:00:00 [facility] TDAP 2019-08-10 Completed [facility] of 00:00:00 [facility] Pneumococcal 2019-08-10 Completed [facility] o f Polysaccharide, 00:00:00 [place] [facility] PPSV23 (PNEUMOVAX) [facility] TDAP (ADACEL) VACCINE 2019-08-10 Completed [facility] 00:00:00 [facility] TDAP 2019-08-10 Completed [facility] of 00:00:00 [facility] Pneumococcal 2019-08-10 Completed [facility] o f Polysaccharide, 00:00:00 [place] [facility] PPSV23 (PNEUMOVAX) [facility] TDAP (ADACEL) VACCINE 2019-08-10 Completed [facility] 00:00:00 [facility] TDAP 2019-08-10 Completed [facility] 00:00:00 [facility] Pneumococcal 2019-08-10 Completed [facility] o f Polysaccharide, 00:00:00 [place] [facility] PPSV23 (PNEUMOVAX) [facility] TDAP (ADACEL) VACCINE 2019-08-10 Completed [facility] 00:00:00 [facility] TDAP 2019-08-10 Completed [facility] 00:00:00 [facility] Pneumococcal 2019-08-10 Completed [facility] o f Polysaccharide, 00:00:00 [place] [facility] PPSV23 (PNEUMOVAX) [facility] TDAP (ADACEL) VACCINE 2019-08-10 Completed [facility] 00:00:00 [facility] TDAP 2019-08-10 Completed [facility] of 00:00:00 [facility] Pneumococcal 2019-08-10 Completed [facility] o f Polysaccharide, 00:00:00 [place] [facility] PPSV23 (PNEUMOVAX) [facility] TDAP (ADACEL) VACCINE 2019-08-10 Completed [facility] 00:00:00 [facility] TDAP 2019-08-10 Completed [facility] of 00:00:00 [facility] Pneumococcal 2019-08-10 Completed [facility] o f Polysaccharide, 00:00:00 [place] [facility] PPSV23 (PNEUMOVAX) [facility] TDAP (ADACEL) VACCINE 2019-08-10 Completed [facility] 00:00:00 [facility] TDAP 2019-08-10 Completed [facility] 00:00:00 [facility] Pneumococcal 2019-08-10 Completed [facility] o f Polysaccharide, 00:00:00 [place] [facility] PPSV23 (PNEUMOVAX) [facility] TDAP (ADACEL) VACCINE 2019-08-10 Completed [facility] vers[facility] 00:00:00 [facility] TDAP 2019-08-10 Completed [facility] 00:00:00 [facility] Pneumococcal 2019-08-10 Completed [facility] o f Polysaccharide, 00:00:00 [facility] PPSV23 (PNEUMOVAX) [facility] TDAP (ADACEL) VACCINE 2019-08-10 Completed [facility] 00:00:00 [facility] TDAP 2019-08-10 Completed [facility] of 00:00:00 [facility] Pneumococcal 2019-08-10 Completed [facility] o f Polysaccharide, 00:00:00 [place] [facility] PPSV23 (PNEUMOVAX) [facility] TDAP (ADACEL) VACCINE 2019-08-10 Completed [facility] 00:00:00 [facility] TDAP 2019-08-10 Completed [facility] of 00:00:00 [facility] Pneumococcal 2019-08-10 Completed [facility] o f Polysaccharide, 00:00:00 [place] [facility] PPSV23 (PNEUMOVAX) [facility] TDAP (ADACEL) VACCINE 2019-08-10 Completed [facility] 00:00:00 [facility] TDAP 2019-08-10 Completed [facility] of 00:00:00 [facility] Pneumococcal 2019-08-10 Completed [facility] o f Polysaccharide, 00:00:00 [place] [facility] PPSV23 (PNEUMOVAX) [facility] TDAP (ADACEL) VACCINE 2019-08-10 Completed [facility] 00:00:00 [facility] TDAP 2019-08-10 Completed [facility] 00:00:00 [facility] Pneumococcal 2019-08-10 Completed [facility] o f Polysaccharide, 00:00:00 [place] [facility] PPSV23 (PNEUMOVAX) [facility] TDAP (ADACEL) VACCINE 2019-08-10 Completed [facility] 00:00:00 [facility] TDAP 2019-08-10 Completed [facility] of 00:00:00 [facility] Pneumococcal 2019-08-10 Completed [facility] o f Polysaccharide, 00:00:00 [place] [facility] PPSV23 (PNEUMOVAX) [facility] TDAP (ADACEL) VACCINE 2019-08-10 Completed [facility] 00:00:00 [facility] TDAP 2019-08-10 Completed [facility] 00:00:00 [facility] Pneumococcal 2019-08-10 Completed [facility] o f Polysaccharide, 00:00:00 [place] [facility] PPSV23 (PNEUMOVAX) [facility] TDAP (ADACEL) VACCINE 2019-08-10 Completed [facility] 00:00:00 [facility] TDAP 2019-08-10 Completed [facility] 00:00:00 [facility] Pneumococcal 2019-08-10 Completed [facility] o f Polysaccharide, 00:00:00 [place] [facility] PPSV23 (PNEUMOVAX) [facility] TDAP (ADACEL) VACCINE 2019-08-10 Completed [facility] 00:00:00 [facility] TDAP 2019-08-10 Completed [facility] of 00:00:00 [facility] Pneumococcal 2019-08-10 Completed [facility] o f Polysaccharide, 00:00:00 [place] [facility] PPSV23 (PNEUMOVAX) [facility] TDAP (ADACEL) VACCINE 2019-08-10 Completed [facility] 00:00:00 [facility] TDAP 2019-08-10 Completed [facility] of 00:00:00 [facility] Pneumococcal 2019-08-10 Completed [facility] o f Polysaccharide, 00:00:00 [place] [facility] PPSV23 (PNEUMOVAX) Branch TDAP (ADACEL) VACCINE 2019-08-10 Completed [facility] 00:00:00 [facility] TDAP 2019-08-10 Completed [facility] of 00:00:00 [facility] Pneumococcal 2019-08-10 Completed [facility] o f Polysaccharide, 00:00:00 [place] [facility] PPSV23 (PNEUMOVAX) [facility] TDAP (ADACEL) VACCINE 2019-08-10 Completed [facility] 00:00:00 [facility] TDAP 2019-08-10 Completed [facility] of 00:00:00 [facility] Pneumococcal 2019-08-10 Completed [facility] o f Polysaccharide, 00:00:00 [place] [facility] PPSV23 (PNEUMOVAX) Branch TDAP (ADACEL) VACCINE 2019-08-10 Completed [facility] 00:00:00 [facility] TDAP 2019-08-10 Completed [facility] 00:00:00 [facility] Pneumococcal 2019-08-10 Completed [facility] o f Polysaccharide, 00:00:00 [place] [facility] PPSV23 (PNEUMOVAX) [facility] TDAP (ADACEL) VACCINE 2019-08-10 Completed [facility] 00:00:00 [facility] TDAP 2019-08-10 Completed [facility] 00:00:00 [facility] Pneumococcal 2019-08-10 Completed [facility] o f Polysaccharide, 00:00:00 [place] [facility] PPSV23 (PNEUMOVAX) Branch TDAP (ADACEL) VACCINE 2019-08-10 Completed [facility] 00:00:00 [facility] TDAP 2019-08-10 Completed [facility] 00:00:00 [facility] Pneumococcal 2019-08-10 Completed [facility] o f Polysaccharide, 00:00:00 [place] [facility] PPSV23 (PNEUMOVAX) [facility] TDAP (ADACEL) VACCINE 2019-08-10 Completed [facility] 00:00:00 [facility] TDAP 2019-08-10 Completed [facility] 00:00:00 [facility] Pneumococcal 2019-08-10 Completed [facility] o f Polysaccharide, 00:00:00 [place] [facility] PPSV23 (PNEUMOVAX) [facility] TDAP (ADACEL) VACCINE 2019-08-10 Completed [facility] 00:00:00 [facility] TDAP 2019-08-10 Completed [facility] 00:00:00 [facility] Pneumococcal 2019-08-10 Completed [facility] o f Polysaccharide, 00:00:00 [place] [facility] PPSV23 (PNEUMOVAX) [facility] TDAP (ADACEL) VACCINE 2019-08-10 Completed [facility] 00:00:00 [facility] TDAP 2019-08-10 Completed [facility] 00:00:00 [facility] Pneumococcal 2019-08-10 Completed [facility] o f Polysaccharide, 00:00:00 [place] [facility] PPSV23 (PNEUMOVAX) Branch TDAP (ADACEL) VACCINE 2019-08-10 Completed [facility] vers[facility] of 00:00:00 [facility] TDAP 2019-08-10 Completed [facility] of 00:00:00 [facility] Pneumococcal 2019-08-10 Completed University o f Polysaccharide, 00:00:00 [place] [facility] PPSV23 (PNEUMOVAX) Branch TDAP (ADACEL) VACCINE 2019-08-10 Completed [facility] vers[facility] of 00:00:00 [facility] TDAP 2019-08-10 Completed [facility] of 00:00:00 [facility] Pneumococcal 2019-08-10 Completed University o f Polysaccharide, 00:00:00 [place] [facility] PPSV23 (PNEUMOVAX) Branch TDAP (ADACEL) VACCINE 2019-08-10 Completed [facility] vers[facility] of 00:00:00 [facility] TDAP 2019-08-10 Completed [facility] of 00:00:00 [facility] Pneumococcal 2019-08-10 Completed University o f Polysaccharide, 00:00:00 [place] [facility] PPSV23 (PNEUMOVAX) Branch TDAP (ADACEL) VACCINE 2019-08-10 Completed Uni versity of 00:00:00 [facility] TDAP 2019-08-10 Completed [facility] of 00:00:00 [facility] Pneumococcal 2019-08-10 Completed University o f Polysaccharide, 00:00:00 [place] [facility] PPSV23 (PNEUMOVAX) Branch TDAP (ADACEL) VACCINE 2019-08-10 Completed [facility] vers[facility] 00:00:00 [facility] TDAP 2019-08-10 Completed [facility] of 00:00:00 [facility] Pneumococcal 2019-08-10 Completed University o f Polysaccharide, 00:00:00 [place] [facility] PPSV23 (PNEUMOVAX) Branch TDAP (ADACEL) VACCINE 2019-08-10 Completed [facility] vers[facility] of 00:00:00 [facility] TDAP 2019-08-10 Completed [facility] of 00:00:00 [facility] Pneumococcal 2019-08-10 Completed University o f Polysaccharide, 00:00:00 [place] [facility] PPSV23 (PNEUMOVAX) Branch TDAP (ADACEL) VACCINE 2019-08-10 Completed Uni vers[facility] of 00:00:00 [facility] TDAP 2019-08-10 Completed [facility] of 00:00:00 [facility] Pneumococcal 2019-08-10 Completed University o f Polysaccharide, 00:00:00 [place] [facility] PPSV23 (PNEUMOVAX) Branch TDAP (ADACEL) VACCINE 2019-08-10 Completed [facility] vers[facility] of 00:00:00 [facility] TDAP 2019-08-10 Completed [facility] of 00:00:00 [facility] Pneumococcal 2019-08-10 Completed University o f Polysaccharide, 00:00:00 [place] [facility] PPSV23 (PNEUMOVAX) Branch TDAP (ADACEL) VACCINE 2019-08-10 Completed Uni vers[facility] of 00:00:00 [facility] TDAP 2019-08-10 Completed [facility] of 00:00:00 [facility] Pneumococcal 2019-08-10 Completed [facility] o f Polysaccharide, 00:00:00 [place] [facility] PPSV23 (PNEUMOVAX) Branch TDAP (ADACEL) VACCINE 2019-08-10 Completed [facility] 00:00:00 [facility] TDAP 2019-08-10 Completed [facility] of 00:00:00 [facility] Pneumococcal 2019-08-10 Completed University o f Polysaccharide, 00:00:00 [place] [facility] PPSV23 (PNEUMOVAX) Branch TDAP (ADACEL) VACCINE 2019-08-10 Completed Uni versity of 00:00:00 [facility] TDAP 2019-08-10 Completed [facility] of 00:00:00 [facility] Pneumococcal 2019-08-10 Completed University o f Polysaccharide, 00:00:00 [place] [facility] PPSV23 (PNEUMOVAX) Branch TDAP (ADACEL) VACCINE 2019-08-10 Completed Uni vers[facility] of 00:00:00 [facility] TDAP 2019-08-10 Completed [facility] of 00:00:00 [facility] Pneumococcal 2019-08-10 Completed University o f Polysaccharide, 00:00:00 [place] [facility] PPSV23 (PNEUMOVAX) Branch TDAP (ADACEL) VACCINE 2019-08-10 Completed Uni versity of 00:00:00 [facility] TDAP 2019-08-10 Completed [facility] of 00:00:00 [facility] Pneumococcal 2019-08-10 Completed University o f Polysaccharide, 00:00:00 [place] [facility] PPSV23 (PNEUMOVAX) Branch TDAP (ADACEL) VACCINE 2019-08-10 Completed Uni versity of 00:00:00 [facility] TDAP 2019-08-10 Completed [facility] of 00:00:00 [facility] Pneumococcal 2019-08-10 Completed University o f Polysaccharide, 00:00:00 [place] [facility] PPSV23 (PNEUMOVAX) Branch TDAP (ADACEL) VACCINE 2019-08-10 Completed Uni versity of 00:00:00 [facility] TDAP 2019-08-10 Completed [facility] of 00:00:00 [facility] Pneumococcal 2019-08-10 Completed University o f Polysaccharide, 00:00:00 [place] [facility] PPSV23 (PNEUMOVAX) Branch TDAP (ADACEL) VACCINE 2019-08-10 Completed Uni versity of 00:00:00 [facility] TDAP 2019-08-10 Completed [facility] of 00:00:00 [facility] Pneumococcal 2019-08-10 Completed University o f Polysaccharide, 00:00:00 [place] [facility] PPSV23 (PNEUMOVAX) Branch TDAP (ADACEL) VACCINE 2019-08-10 Completed Uni versity of 00:00:00 [facility] TDAP 2019-08-10 Completed [facility] of 00:00:00 [facility] Pneumococcal 2019-08-10 Completed University o f Polysaccharide, 00:00:00 [place] [facility] PPSV23 (PNEUMOVAX) Branch TDAP (ADACEL) VACCINE 2019-08-10 Completed Uni vers[facility] of 00:00:00 [facility] TDAP 2019-08-10 Completed [facility] of 00:00:00 [facility] Pneumococcal 2019-08-10 Completed University o f Polysaccharide, 00:00:00 [place] [facility] PPSV23 (PNEUMOVAX) Branch TDAP (ADACEL) VACCINE 2019-08-10 Completed [facility] vers[facility] of 00:00:00 [facility] TDAP 2019-08-10 Completed [facility] of 00:00:00 [facility] Pneumococcal 2019-08-10 Completed University o f Polysaccharide, 00:00:00 [place] [facility] PPSV23 (PNEUMOVAX) Branch TDAP (ADACEL) VACCINE 2019-08-10 Completed Uni vers[facility] of 00:00:00 [facility] TDAP 2019-08-10 Completed [facility] of 00:00:00 [facility] Pneumococcal 2019-08-10 Completed University o f Polysaccharide, 00:00:00 [place] [facility] PPSV23 (PNEUMOVAX) Branch TDAP (ADACEL) VACCINE 2019-08-10 Completed [facility] vers[facility] of 00:00:00 [facility] TDAP 2019-08-10 Completed [facility] of 00:00:00 [facility] Pneumococcal 2019-08-10 Completed University o f Polysaccharide, 00:00:00 [place] [facility] PPSV23 (PNEUMOVAX) Branch TDAP (ADACEL) VACCINE 2019-08-10 Completed Uni versity of 00:00:00 [facility] TDAP 2019-08-10 Completed [facility] of 00:00:00 [facility] Pneumococcal 2019-08-10 Completed University o f Polysaccharide, 00:00:00 [place] [facility] PPSV23 (PNEUMOVAX) Branch TDAP (ADACEL) VACCINE 2019-08-10 Completed [facility] vers[facility] of 00:00:00 [facility] TDAP 2019-08-10 Completed [facility] of 00:00:00 [facility] Pneumococcal 2019-08-10 Completed University o f Polysaccharide, 00:00:00 [place] [facility] PPSV23 (PNEUMOVAX) Branch TDAP (ADACEL) VACCINE 2019-08-10 Completed Uni versity of 00:00:00 [facility] TDAP 2019-08-10 Completed [facility] of 00:00:00 [facility] Pneumococcal 2019-08-10 Completed University o f Polysaccharide, 00:00:00 [place] [facility] PPSV23 (PNEUMOVAX) Branch TDAP (ADACEL) VACCINE 2019-08-10 Completed Uni versity of 00:00:00 [facility] TDAP 2019-08-10 Completed [facility] of 00:00:00 [facility] Pneumococcal 2019-08-10 Completed University o f Polysaccharide, 00:00:00 [place] [facility] PPSV23 (PNEUMOVAX) Branch TDAP (ADACEL) VACCINE 2019-08-10 Completed Uni versity of 00:00:00 [facility] TDAP 2019-08-10 Completed [facility] of 00:00:00 [facility] Pneumococcal 2019-08-10 Completed University o f Polysaccharide, 00:00:00 [place] [facility] PPSV23 (PNEUMOVAX) Branch TDAP (ADACEL) VACCINE 2019-08-10 Completed Uni vers[facility] of 00:00:00 [facility] TDAP 2019-08-10 Completed [facility] of 00:00:00 [facility] Pneumococcal 2019-08-10 Completed University o f Polysaccharide, 00:00:00 [place] [facility] PPSV23 (PNEUMOVAX) Branch TDAP (ADACEL) VACCINE 2019-08-10 Completed Uni versity of 00:00:00 [facility] TDAP 2019-08-10 Completed [facility] of 00:00:00 [facility] Pneumococcal 2019-08-10 Completed University o f Polysaccharide, 00:00:00 [place] [facility] PPSV23 (PNEUMOVAX) Branch TDAP (ADACEL) VACCINE 2019-08-10 Completed Uni versity of 00:00:00 [facility] TDAP 2019-08-10 Completed [facility] of 00:00:00 [facility] Pneumococcal 2019-08-10 Completed University o f Polysaccharide, 00:00:00 [place] [facility] PPSV23 (PNEUMOVAX) Branch TDAP (ADACEL) VACCINE 2019-08-10 Completed Uni vers[facility] of 00:00:00 [facility] TDAP 2019-08-10 Completed [facility] of 00:00:00 [facility] Pneumococcal 2019-08-10 Completed University o f Polysaccharide, 00:00:00 [place] [facility] PPSV23 (PNEUMOVAX) Branch TDAP (ADACEL) VACCINE 2019-08-10 Completed Uni versity of 00:00:00 [facility] TDAP 2019-08-10 Completed [facility] of 00:00:00 [facility] Pneumococcal 2019-08-10 Completed University o f Polysaccharide, 00:00:00 [facility] ical PPSV23 (PNEUMOVAX) Branch TDAP (ADACEL) VACCINE 2019-08-10 Completed Uni versity of 00:00:00 [facility] TDAP 2019-08-10 Completed University of 00:00:00 [facility] Pneumococcal 2019-08-10 Completed University o f Polysaccharide, 00:00:00 [facility] ical PPSV23 (PNEUMOVAX) Branch TDAP (ADACEL) VACCINE 2019-08-10 Completed Uni versity of 00:00:00 [facility] TDAP 2019-08-10 Completed [facility] of 00:00:00 [facility] Pneumococcal 2019-08-10 Completed University o f Polysaccharide, 00:00:00 [facility] ical PPSV23 (PNEUMOVAX) Branch TDAP (ADACEL) VACCINE 2019-08-10 Completed Uni versity of 00:00:00 [facility] TDAP 2019-08-10 Completed University of 00:00:00 [facility] Pneumococcal 2019-08-10 Completed University o f Polysaccharide, 00:00:00 [facility] ical PPSV23 (PNEUMOVAX) Branch TDAP (ADACEL) VACCINE 2019-08-10 Completed Uni versity of 00:00:00 [facility] TDAP 2019-08-10 Completed [facility] of 00:00:00 [facility] Influenza Virus 2019-07-04 Completed Universit y of Vaccine 00:00:00 [facility] Influenza Virus 2019-07-04 Completed Universit y of Vaccine Recomb Quad 00:00:00 [facility] IM, Preserv and ABX Branc h Free 18-64 YRS Influenza Virus 2019-07-04 Completed Universit y of Vaccine 00:00:00 [facility] Influenza Virus 2019-07-04 Completed Universit y of Vaccine Recomb Quad 00:00:00 [facility] IM, Preserv and ABX Branc h Free 18-64 YRS Influenza Virus 2019-07-04 Completed Universit y of Vaccine 00:00:00 [facility] Influenza Virus 2019-07-04 Completed Universit y of Vaccine Recomb Quad 00:00:00 [facility] IM, Preserv and ABX Branc h Free 18-64 YRS Influenza Virus 2019-07-04 Completed Universit y of Vaccine 00:00:00 [facility] Influenza Virus 2019-07-04 Completed Universit y of Vaccine Recomb Quad 00:00:00 [facility] IM, Preserv and ABX Branc h Free 18-64 YRS Influenza Virus 2019-07-04 Completed Universit y of Vaccine 00:00:00 [facility] Influenza Virus 2019-07-04 Completed Universit y of Vaccine Recomb Quad 00:00:00 [facility] IM, Preserv and ABX Branc h Free 18-64 YRS Influenza Virus 2019-07-04 Completed Universit y of Vaccine 00:00:00 [facility] Influenza Virus 2019-07-04 Completed Universit y of Vaccine Recomb Quad 00:00:00 [facility] IM, Preserv and ABX Branc h Free 18-64 YRS Influenza Virus 2019-07-04 Completed Universit y of Vaccine 00:00:00 [facility] Influenza Virus 2019-07-04 Completed Universit y of Vaccine Recomb Quad 00:00:00 [facility] IM, Preserv and ABX Branc h Free 18-64 YRS Influenza Virus 2019-07-04 Completed Universit y of Vaccine 00:00:00 [facility] Influenza Virus 2019-07-04 Completed Universit y of Vaccine Recomb Quad 00:00:00 [facility] IM, Preserv and ABX Branc h Free 18-64 YRS Influenza Virus 2019-07-04 Completed Universit y of Vaccine 00:00:00 [facility] Influenza Virus 2019-07-04 Completed Universit y of Vaccine Recomb Quad 00:00:00 [facility] IM, Preserv and ABX Branc h Free 18-64 YRS Influenza Virus 2019-07-04 Completed Universit y of Vaccine 00:00:00 [facility] Influenza Virus 2019-07-04 Completed Universit y of Vaccine Recomb Quad 00:00:00 [facility] IM, Preserv and ABX Branc h Free 18-64 YRS Influenza Virus 2019-07-04 Completed Universit y of Vaccine 00:00:00 [facility] Influenza Virus 2019-07-04 Completed Universit y of Vaccine Recomb Quad 00:00:00 [facility] IM, Preserv and ABX Branc h Free 18-64 YRS Influenza Virus 2019-07-04 Completed Universit y of Vaccine 00:00:00 [facility] Influenza Virus 2019-07-04 Completed Universit y of Vaccine Recomb Quad 00:00:00 [facility] IM, Preserv and ABX Branc h Free 18-64 YRS Influenza Virus 2019-07-04 Completed Universit y of Vaccine 00:00:00 [facility] Influenza Virus 2019-07-04 Completed Universit y of Vaccine Recomb Quad 00:00:00 [facility] IM, Preserv and ABX Branc h Free 18-64 YRS Influenza Virus 2019-07-04 Completed Universit y of Vaccine 00:00:00 [facility] Influenza Virus 2019-07-04 Completed Universit y of Vaccine Recomb Quad 00:00:00 [facility] IM, Preserv and ABX Branc h Free 18-64 YRS Influenza Virus 2019-07-04 Completed Universit y of Vaccine 00:00:00 [facility] Influenza Virus 2019-07-04 Completed Universit y of Vaccine Recomb Quad 00:00:00 [facility], Preserv and ABX Branc h Free 18-64 YRS Influenza Virus 2019-07-04 Completed Universit y of Vaccine 00:00:00 [facility] Influenza Virus 2019-07-04 Completed Universit y of Vaccine Recomb Quad 00:00:00 [facility] IM, Preserv and ABX Branc h Free 18-64 YRS Influenza Virus 2019-07-04 Completed Universit y of Vaccine 00:00:00 [facility] Influenza Virus 2019-07-04 Completed Universit y of Vaccine Recomb Quad 00:00:00 [facility] IM, Preserv and ABX Branc h Free 18-64 YRS Influenza Virus 2019-07-04 Completed Universit y of Vaccine 00:00:00 [facility] Influenza Virus 2019-07-04 Completed Universit y of Vaccine Recomb Quad 00:00:00 [facility] IM, Preserv and ABX Branc h Free 18-64 YRS Influenza Virus 2019-07-04 Completed Universit y of Vaccine 00:00:00 [facility] Influenza Virus 2019-07-04 Completed Universit y of Vaccine Recomb Quad 00:00:00 [facility], Preserv and ABX Branc h Free 18-64 YRS Influenza Virus 2019-07-04 Completed Universit y of Vaccine 00:00:00 [facility] Influenza Virus 2019-07-04 Completed Universit y of Vaccine Recomb Quad 00:00:00 [place] [facility], Preserv and ABX Branc h Free 18-64 YRS Influenza Virus 2019-07-04 Completed Universit y of Vaccine 00:00:00 [facility] Influenza Virus 2019-07-04 Completed Universit y of Vaccine Recomb Quad 00:00:00 [facility], Preserv and ABX Branc h Free 18-64 YRS Influenza Virus 2019-07-04 Completed Universit y of Vaccine 00:00:00 [facility] Influenza Virus 2019-07-04 Completed Universit y of Vaccine Recomb Quad 00:00:00 [place] [facility] IM, Preserv and ABX Branc h Free 18-64 YRS Influenza Virus 2019-07-04 Completed Universit y of Vaccine 00:00:00 [facility] Influenza Virus 2019-07-04 Completed Universit y of Vaccine Recomb Quad 00:00:00 [facility] IM, Preserv and ABX Branc h Free 18-64 YRS Influenza Virus 2019-07-04 Completed Universit y of Vaccine 00:00:00 [facility] Influenza Virus 2019-07-04 Completed Universit y of Vaccine Recomb Quad 00:00:00 [facility] IM, Preserv and ABX Branc h Free 18-64 YRS Influenza Virus 2019-07-04 Completed Universit y of Vaccine 00:00:00 [facility] Influenza Virus 2019-07-04 Completed [facility]it y of Vaccine Recomb Quad 00:00:00 [facility] IM, Preserv and ABX Branc h Free 18-64 YRS Influenza Virus 2019-07-04 Completed Universit y of Vaccine 00:00:00 [facility] Influenza Virus 2019-07-04 Completed [facility]it y of Vaccine Recomb Quad 00:00:00 [facility], Preserv and ABX Branc h Free 18-64 YRS Influenza Virus 2019-07-04 Completed Universit y of Vaccine 00:00:00 [facility] Influenza Virus 2019-07-04 Completed Universit y of Vaccine Recomb Quad 00:00:00 [facility] IM, Preserv and ABX Branc h Free 18-64 YRS Influenza Virus 2019-07-04 Completed Universit y of Vaccine 00:00:00 [facility] Influenza Virus 2019-07-04 Completed Universit y of Vaccine Recomb Quad 00:00:00 [facility] IM, Preserv and ABX Branc h Free 18-64 YRS Influenza Virus 2019-07-04 Completed Universit y of Vaccine 00:00:00 [facility] Influenza Virus 2019-07-04 Completed Universit y of Vaccine Recomb Quad 00:00:00 [facility], Preserv and ABX Branc h Free 18-64 YRS Influenza Virus 2019-07-04 Completed Universit y of Vaccine 00:00:00 [facility] Influenza Virus 2019-07-04 Completed [facility]it y of Vaccine Recomb Quad 00:00:00 [facility], Preserv and ABX Branc h Free 18-64 YRS Influenza Virus 2019-07-04 Completed Universit y of Vaccine 00:00:00 [facility] Influenza Virus 2019-07-04 Completed [facility]it y of Vaccine Recomb Quad 00:00:00 [facility], Preserv and ABX Branc h Free 18-64 YRS Influenza Virus 2019-07-04 Completed Universit y of Vaccine 00:00:00 [facility] Influenza Virus 2019-07-04 Completed Universit y of Vaccine Recomb Quad 00:00:00 [facility], Preserv and ABX Branc h Free 18-64 YRS Influenza Virus 2019-07-04 Completed Universit y of Vaccine 00:00:00 [facility] Influenza Virus 2019-07-04 Completed [facility]it y of Vaccine Recomb Quad 00:00:00 [facility], Preserv and ABX Branc h Free 18-64 YRS Influenza Virus 2019-07-04 Completed Universit y of Vaccine 00:00:00 [facility] Influenza Virus 2019-07-04 Completed [facility]it y of Vaccine Recomb Quad 00:00:00 [facility], Preserv and ABX Branc h Free 18-64 YRS Influenza Virus 2019-07-04 Completed Universit y of Vaccine 00:00:00 [facility] Influenza Virus 2019-07-04 Completed Universit y of Vaccine Recomb Quad 00:00:00 [facility], Preserv and ABX Branc h Free 18-64 YRS Influenza Virus 2019-07-04 Completed Universit y of Vaccine 00:00:00 [facility] Influenza Virus 2019-07-04 Completed Universit y of Vaccine Recomb Quad 00:00:00 [facility], Preserv and ABX Branc h Free 18-64 YRS Influenza Virus 2019-07-04 Completed Universit y of Vaccine 00:00:00 [facility] Influenza Virus 2019-07-04 Completed [facility]it y of Vaccine Recomb Quad 00:00:00 [facility], Preserv and ABX Branc h Free 18-64 YRS Influenza Virus 2019-07-04 Completed [facility]it y of Vaccine 00:00:00 [facility] Influenza Virus 2019-07-04 Completed [facility]it y of Vaccine Recomb Quad 00:00:00 [facility], Preserv and ABX Branc h Free 18-64 YRS Influenza Virus 2019-07-04 Completed [facility]it y of Vaccine 00:00:00 [facility] Influenza Virus 2019-07-04 Completed [facility]it y of Vaccine Recomb Quad 00:00:00 [facility], Preserv and ABX Branc h Free 18-64 YRS Influenza Virus 2019-07-04 Completed Universit y of Vaccine 00:00:00 [facility] Influenza Virus 2019-07-04 Completed [facility]it y of Vaccine Recomb Quad 00:00:00 [facility], Preserv and ABX Branc h Free 18-64 YRS Influenza Virus 2019-07-04 Completed Universit y of Vaccine 00:00:00 [facility] Influenza Virus 2019-07-04 Completed [facility]it y of Vaccine Recomb Quad 00:00:00 [facility], Preserv and ABX Branc h Free 18-64 YRS Influenza Virus 2019-07-04 Completed [facility]it y of Vaccine 00:00:00 [facility] Influenza Virus 2019-07-04 Completed [facility]it y of Vaccine Recomb Quad 00:00:00 [facility], Preserv and ABX Branc h Free 18-64 YRS Influenza Virus 2019-07-04 Completed [facility]it y of Vaccine 00:00:00 [facility] Influenza Virus 2019-07-04 Completed [facility]it y of Vaccine Recomb Quad 00:00:00 [facility] IM, Preserv and ABX Branc h Free 18-64 YRS Influenza Virus 2019-07-04 Completed [facility]it y of Vaccine 00:00:00 [facility] Influenza Virus 2019-07-04 Completed [facility]it y of Vaccine Recomb Quad 00:00:00 [facility], Preserv and ABX Branc h Free 18-64 YRS Influenza Virus 2019-07-04 Completed [facility]it y of Vaccine 00:00:00 [facility] Influenza Virus 2019-07-04 Completed [facility]it y of Vaccine Recomb Quad 00:00:00 [facility], Preserv and ABX Branc h Free 18-64 YRS Influenza Virus 2019-07-04 Completed [facility]it y of Vaccine 00:00:00 [facility] Influenza Virus 2019-07-04 Completed [facility]it y of Vaccine Recomb Quad 00:00:00 [facility], Preserv and ABX Branc h Free 18-64 YRS Influenza Virus 2019-07-04 Completed [facility]it y of Vaccine 00:00:00 [facility] Influenza Virus 2019-07-04 Completed [facility] y of Vaccine Recomb Quad 00:00:00 [facility], Preserv and ABX Branc h Free 18-64 YRS Influenza Virus 2019-07-04 Completed [facility]it y of Vaccine 00:00:00 [facility] Influenza Virus 2019-07-04 Completed [facility]it y of Vaccine Recomb Quad 00:00:00 [facility], Preserv and ABX Branc h Free 18-64 YRS Influenza Virus 2019-07-04 Completed [facility]it y of Vaccine 00:00:00 [facility] Influenza Virus 2019-07-04 Completed [facility] y of Vaccine Recomb Quad 00:00:00 [facility], Preserv and ABX Branc h Free 18-64 YRS Influenza Virus 2019-07-04 Completed [facility]it y of Vaccine 00:00:00 [facility] Influenza Virus 2019-07-04 Completed [facility] y of Vaccine Recomb Quad 00:00:00 [facility], Preserv and ABX Branc h Free 18-64 YRS Influenza Virus 2019-07-04 Completed [facility] y of Vaccine 00:00:00 [facility] Influenza Virus 2019-07-04 Completed [facility]it y of Vaccine Recomb [facility] 00:00:00 [facility], Preserv and ABX Branc h Free 18-64 YRS Influenza Virus 2019-07-04 Completed [facility]it y of Vaccine 00:00:00 [facility] Influenza Virus 2019-07-04 Completed [facility]it y of Vaccine Recomb Quad 00:00:00 [facility], Preserv and ABX Branc h Free 18-64 YRS Influenza Virus 2019-07-04 Completed [facility] y of Vaccine 00:00:00 [facility] Influenza Virus 2019-07-04 Completed [facility] y of Vaccine Recomb Quad 00:00:00 [facility], Preserv and ABX Branc h Free 18-64 YRS Influenza Virus 2019-07-04 Completed [facility] y of Vaccine 00:00:00 [facility] Influenza Virus 2019-07-04 Completed [facility] y of Vaccine Recomb Quad 00:00:00 [facility], Preserv and ABX Branc h Free 18-64 YRS Influenza Virus 2019-07-04 Completed [facility] y of Vaccine 00:00:00 [facility] Influenza Virus 2019-07-04 Completed [facility] y of Vaccine Recomb [facility] 00:00:00 [facility], Preserv and ABX Branc h Free 18-64 YRS Influenza Virus 2019-07-04 Completed [facility] y of Vaccine 00:00:00 [facility] Influenza Virus 2019-07-04 Completed [facility] y of Vaccine Recomb Quad 00:00:00 [facility], Preserv and ABX Branc h Free 18-64 YRS Influenza Virus 2019-07-04 Completed [facility] y of Vaccine 00:00:00 [facility] Influenza Virus 2019-07-04 Completed [facility] y of Vaccine Recomb Quad 00:00:00 [facility], Preserv and ABX Branc h Free 18-64 YRS Influenza Virus 2019-07-04 Completed [facility] Vaccine 00:00:00 [facility] [facility] Influenza Virus 2019-07-04 Completed [facility] 00:00:00 [facility], Preserv and ABX Branc h Free 18-64 YRS Influenza Virus 2019-07-04 Completed [facility] Vaccine 00:00:00 [facility] Influenza Virus 2019-07-04 Completed [facility] Vaccine Recomb Quad 00:00:00 [facility], Preserv and ABX Branc h Free 18-64 YRS Influenza Virus 2019-07-04 Completed [facility] Vaccine 00:00:00 [facility] Influenza Virus 2019-07-04 Completed [facility] Vaccine Recomb Quad 00:00:00 [facility], Preserv and ABX Branc h Free 18-64 YRS Influenza Virus 2019-07-04 Completed [facility] Vaccine 00:00:00 [facility] Influenza Virus 2019-07-04 Completed [facility] Vaccine Recomb Quad 00:00:00 [facility], Preserv and ABX Branc h Free 18-64 YRS Influenza Virus 2019-07-04 Completed [facility] Vaccine 00:00:00 [facility] Influenza Virus 2019-07-04 Completed [facility] Vaccine Recomb Quad 00:00:00 [facility], Preserv and ABX Branc h Free 18-64 YRS Influenza Virus 2019-07-04 Completed [facility] Vaccine 00:00:00 [facility] Influenza Virus 2019-07-04 Completed [facility] Vaccine Recomb Quad 00:00:00 [facility], Preserv and ABX Branc h Free 18-64 YRS Influenza Virus 2019-07-04 Completed [facility] Vaccine 00:00:00 [facility] Influenza Virus 2019-07-04 Completed [facility] Vaccine Recomb Quad 00:00:00 [facility], Preserv and ABX Branc h Free 18-64 YRS Influenza Virus 2019-07-04 Completed [facility] Vaccine 00:00:00 [facility] Influenza Virus 2019-07-04 Completed [facility] Vaccine Recomb Quad 00:00:00 [facility], Preserv and ABX Branc h Free 18-64 YRS Influenza Virus 2019-07-04 Completed [facility] Vaccine 00:00:00 [facility] Influenza Virus 2019-07-04 Completed [facility] Vaccine Recomb Quad 00:00:00 [facility], Preserv and ABX Branc h Free 18-64 YRS Influenza Virus 2019-07-04 Completed [facility] Vaccine 00:00:00 [facility] Influenza Virus 2019-07-04 Completed [facility] Vaccine Recomb Quad 00:00:00 [facility], Preserv and ABX Branc h Free 18-64 YRS Influenza Virus 2019-07-04 Completed [facility] Vaccine 00:00:00 [facility] Influenza Virus 2019-07-04 Completed [facility] Vaccine Recomb Quad 00:00:00 [facility], Preserv and ABX Branc h Free 18-64 YRS Influenza Virus 2019-07-04 Completed [facility] Vaccine 00:00:00 [facility] Influenza Virus 2019-07-04 Completed [facility] Vaccine Recomb Quad 00:00:00 [facility], Preserv and ABX Branc h Free 18-64 YRS Influenza Virus 2019-07-04 Completed [facility] Vaccine 00:00:00 [facility] Influenza Virus 2019-07-04 Completed [facility] Vaccine Recomb Quad 00:00:00 [facility], Preserv and ABX Branc h Free 18-64 YRS Influenza Virus 2019-07-04 Completed [facility] Vaccine 00:00:00 [facility] Influenza Virus 2019-07-04 Completed [facility] Vaccine Recomb Quad 00:00:00 [facility], Preserv and ABX Branc h Free 18-64 YRS Influenza Virus 2019-07-04 Completed [facility] Vaccine 00:00:00 [facility] Influenza Virus 2019-07-04 Completed [facility] Vaccine Recomb Quad 00:00:00 [facility], Preserv and ABX Branc h Free 18-64 YRS Influenza Virus 2019-07-04 Completed [facility] Vaccine 00:00:00 [facility] Influenza Virus 2019-07-04 Completed [facility] Vaccine Recomb Quad 00:00:00 [facility], Preserv and ABX Branc h Free 18-64 YRS Influenza Virus 2019-07-04 Completed [facility] Vaccine 00:00:00 [facility] Influenza Virus 2019-07-04 Completed [facility] Vaccine Recomb Quad 00:00:00 [facility], Preserv and ABX Branc h Free 18-64 YRS Influenza Virus 2019-07-04 Completed [facility] Vaccine 00:00:00 [facility] Influenza Virus 2019-07-04 Completed [facility] Vaccine Recomb Quad 00:00:00 [facility], Preserv and ABX Branc h Free 18-64 YRS Influenza Virus 2019-07-04 Completed [facility] Vaccine 00:00:00 [facility] Influenza Virus 2019-07-04 Completed [facility] Vaccine Recomb Quad 00:00:00 [facility], Preserv and ABX Branc h Free 18-64 YRS Influenza Virus 2019-07-04 Completed [facility] Vaccine 00:00:00 [facility] Influenza Virus 2019-07-04 Completed [facility] Vaccine Recomb Quad 00:00:00 [facility], Preserv and ABX Branc h Free 18-64 YRS Influenza Virus 2019-07-04 Completed [facility] Vaccine 00:00:00 [facility] Influenza Virus 2019-07-04 Completed [facility] Vaccine Recomb Quad 00:00:00 [facility], Preserv and ABX Branc h Free 18-64 YRS Influenza Virus 2019-07-04 Completed [facility] Vaccine 00:00:00 [facility] Influenza Virus 2019-07-04 Completed [facility] Vaccine Recomb Quad 00:00:00 [facility], Preserv and ABX Branc h Free 18-64 YRS Influenza Virus 2019-07-04 Completed [facility] Vaccine 00:00:00 [facility] Influenza Virus 2019-07-04 Completed [facility] Vaccine Recomb Quad 00:00:00 [facility], Preserv and ABX Branc h Free 18-64 YRS Influenza Virus 2019-07-04 Completed [facility] Vaccine 00:00:00 [facility] Influenza Virus 2019-07-04 Completed [facility] Vaccine Recomb Quad 00:00:00 [facility], Preserv and ABX Branc h Free 18-64 YRS Influenza Virus 2019-07-04 Completed [facility] Vaccine 00:00:00 [facility] Influenza Virus 2019-07-04 Completed [facility] Vaccine Recomb Quad 00:00:00 [facility], Preserv and ABX Branc h Free 18-64 YRS Influenza Virus 2019-07-04 Completed [facility] Vaccine 00:00:00 [facility] Influenza Virus 2019-07-04 Completed [facility] Vaccine Recomb Quad 00:00:00 [facility], Preserv and ABX Branc h Free 18-64 YRS Influenza Virus 2019-07-04 Completed [facility] Vaccine 00:00:00 [facility] Influenza Virus 2019-07-04 Completed [facility] Vaccine Recomb Quad 00:00:00 [facility], Preserv and ABX Branc h Free 18-64 YRS Influenza Virus 2019-07-04 Completed [facility] Vaccine 00:00:00 [facility] Influenza Virus 2019-07-04 Completed [facility] Vaccine Recomb Quad 00:00:00 [facility], Preserv and ABX Branc h Free 18-64 YRS Influenza Virus 2019-07-04 Completed [facility] Vaccine 00:00:00 [facility] Influenza Virus 2019-07-04 Completed [facility] Vaccine Recomb Quad 00:00:00 [facility], Preserv and ABX Branc h Free 18-64 YRS Influenza Virus 2019-07-04 Completed [facility] Vaccine 00:00:00 [facility] Influenza Virus 2019-07-04 Completed [facility] Vaccine Recomb Quad 00:00:00 [facility], Preserv and ABX Branc h Free 18-64 YRS Influenza Virus 2019-07-04 Completed [facility] Vaccine 00:00:00 [facility] Influenza Virus 2019-07-04 Completed [facility] Vaccine Recomb Quad 00:00:00 [facility], Preserv and ABX Branc h Free 18-64 YRS Influenza Virus 2019-07-04 Completed [facility] Vaccine 00:00:00 [facility] Influenza Virus 2019-07-04 Completed [facility] Vaccine Recomb Quad 00:00:00 [facility], Preserv and ABX Branc h Free 18-64 YRS Influenza Virus 2019-07-04 Completed [facility] Vaccine 00:00:00 [facility] Influenza Virus 2019-07-04 Completed [facility] Vaccine Recomb Quad 00:00:00 [facility], Preserv and ABX Branc h Free 18-64 YRS Influenza Virus 2019-07-04 Completed [facility] Vaccine 00:00:00 [facility] Influenza Virus 2019-07-04 Completed [facility] Vaccine Recomb Quad 00:00:00 [facility], Preserv and ABX Branc h Free 18-64 YRS Influenza Virus 2019-07-04 Completed [facility] Vaccine 00:00:00 [facility] Influenza Virus 2019-07-04 Completed [facility] Vaccine Recomb Quad 00:00:00 [facility], Preserv and ABX Branc h Free 18-64 YRS Influenza Virus 2019-07-04 Completed [facility] Vaccine 00:00:00 [facility] Influenza Virus 2019-07-04 Completed [facility] Vaccine Recomb Quad 00:00:00 [facility], Preserv and ABX Branc h Free 18-64 YRS Influenza Virus 2019-07-04 Completed [facility] Vaccine 00:00:00 [facility] Influenza Virus 2019-07-04 Completed [facility] Vaccine Recomb Quad 00:00:00 [facility], Preserv and ABX Branc h Free 18-64 YRS Influenza Virus 2019-07-04 Completed [facility] Vaccine 00:00:00 [facility] Influenza Virus 2019-07-04 Completed [facility] Vaccine Recomb Quad 00:00:00 [facility], Preserv and ABX Branc h Free 18-64 YRS Influenza Virus 2019-07-04 Completed [facility] Vaccine 00:00:00 [facility] Influenza Virus 2019-07-04 Completed [facility] Vaccine Recomb Quad 00:00:00 [facility], Preserv and ABX Branc h Free 18-64 YRS Influenza Virus 2019-07-04 Completed [facility] Vaccine 00:00:00 [facility] Influenza Virus 2019-07-04 Completed [facility] Vaccine Recomb Quad 00:00:00 [facility], Preserv and ABX Branc h Free 18-64 YRS Influenza Virus 2019-07-04 Completed [facility] Vaccine 00:00:00 [facility] Influenza Virus 2019-07-04 Completed [facility] Vaccine Recomb Quad 00:00:00 [facility], Preserv and ABX Branc h Free 18-64 YRS Influenza Virus 2019-07-04 Completed [facility] Vaccine 00:00:00 [facility] Influenza Virus 2019-07-04 Completed [facility] Vaccine Recomb Quad 00:00:00 [facility], Preserv and ABX Branc h Free 18-64 YRS Influenza Virus 2019-07-04 Completed [facility] Vaccine 00:00:00 [facility] Influenza Virus 2019-07-04 Completed [facility] Vaccine Recomb Quad 00:00:00 [facility], Preserv and ABX Branc h Free 18-64 YRS Influenza Virus 2019-07-04 Completed [facility] Vaccine 00:00:00 [facility] Influenza Virus 2019-07-04 Completed [facility] Vaccine Recomb Quad 00:00:00 [facility], Preserv and ABX Branc h Free 18-64 YRS Influenza Virus 2019-07-04 Completed [facility] Vaccine 00:00:00 [facility] Influenza Virus 2019-07-04 Completed [facility] Vaccine Recomb Quad 00:00:00 [facility], Preserv and ABX Branc h Free 18-64 YRS Influenza Virus 2019-07-04 Completed [facility] Vaccine 00:00:00 [facility] Influenza Virus 2019-07-04 Completed [facility] Vaccine Recomb Quad 00:00:00 [facility], Preserv and ABX Branc h Free 18-64 YRS Influenza Virus 2019-07-04 Completed [facility] Vaccine 00:00:00 [facility] Influenza Virus 2019-07-04 Completed [facility] Vaccine Recomb Quad 00:00:00 [facility], Preserv and ABX Branc h Free 18-64 YRS Influenza Virus 2019-07-04 Completed [facility] Vaccine 00:00:00 [facility] Influenza Virus 2019-07-04 Completed [facility] Vaccine Recomb Quad 00:00:00 [facility], Preserv and ABX Branc h Free 18-64 YRS Influenza Virus 2019-07-04 Completed [facility] Vaccine 00:00:00 [facility] Influenza Virus 2019-07-04 Completed [facility] Vaccine Recomb Quad 00:00:00 [facility], Preserv and ABX Branc h Free 1866 YRS Influenza Virus 2019-07-04 Completed [facility] Vaccine 00:00:00 [facility] Influenza Virus 2019-07-04 Completed [facility] Vaccine Recomb Quad 00:00:00 [facility], Preserv and ABX Branc h Free 1866 YRS Influenza Virus 2019-07-04 Completed [facility] Vaccine 00:00:00 [facility] Influenza Virus 2019-07-04 Completed [facility] Vaccine Recomb Quad 00:00:00 [facility], Preserv and ABX Branc h Free 1866 YRS Influenza Virus 2018-06-30 Completed [facility] Vaccine Quad IM 3+ 00:00:00 [facility] Influenza Virus 2018-06-30 Completed [facility] Vaccine Quad IM 3+ 00:00:00 [facility] Influenza Virus 2018-06-30 Completed [facility] Vaccine Quad IM 3+ 00:00:00 [facility] Influenza Virus 2018-06-30 Completed [facility] Vaccine Quad IM 3+ 00:00:00 [facility] Influenza Virus 2018-06-30 Completed [facility] Vaccine Quad IM 3+ 00:00:00 [facility] Influenza Virus 2018-06-30 Completed [facility] Vaccine Quad IM 3+ 00:00:00 [facility] Influenza Virus 2018-06-30 Completed [facility] Vaccine Quad IM 3+ 00:00:00 [facility] Influenza Virus 2018-06-30 Completed [facility] Vaccine Quad IM 3+ 00:00:00 [facility] Influenza Virus 2018-06-30 Completed [facility] Vaccine Quad IM 3+ 00:00:00 [facility] Influenza Virus 2018-06-30 Completed [facility] Vaccine Quad IM 3+ 00:00:00 [facility] Influenza Virus 2018-06-30 Completed [facility] Vaccine Quad IM 3+ 00:00:00 [facility] Influenza Virus 2018-06-30 Completed [facility] Vaccine Quad IM 3+ 00:00:00 [facility] Influenza Virus 2018-06-30 Completed [facility] Vaccine Quad IM 3+ 00:00:00 [facility] Influenza Virus 2018-06-30 Completed [facility] Vaccine Quad IM 3+ 00:00:00 [facility] Influenza Virus 2018-06-30 Completed [facility] Vaccine Quad IM 3+ 00:00:00 [facility] Influenza Virus 2018-06-30 Completed [facility] Vaccine Quad IM 3+ 00:00:00 [facility] Influenza Virus 2018-06-30 Completed [facility] Vaccine Quad IM 3+ 00:00:00 [facility] Influenza Virus 2018-06-30 Completed [facility] Vaccine Quad IM 3+ 00:00:00 [facility] Influenza Virus 2018-06-30 Completed [facility] Vaccine Quad IM 3+ 00:00:00 [facility] Influenza Virus 2018-06-30 Completed [facility] Vaccine Quad IM 3+ 00:00:00 [facility] Influenza Virus 2018-06-30 Completed [facility] Vaccine Quad IM 3+ 00:00:00 [facility] Influenza Virus 2018-06-30 Completed [facility] Vaccine Quad IM 3+ 00:00:00 [facility] Influenza Virus 2018-06-30 Completed [facility] Vaccine Quad IM 3+ 00:00:00 [facility] Influenza Virus 2018-06-30 Completed [facility] Vaccine Quad IM 3+ 00:00:00 [facility] Influenza Virus 2018-06-30 Completed [facility] Vaccine Quad IM 3+ 00:00:00 [facility] Influenza Virus 2018-06-30 Completed [facility] Vaccine Quad IM 3+ 00:00:00 [facility] Influenza Virus 2018-06-30 Completed [facility] Vaccine Quad IM 3+ 00:00:00 [facility] Influenza Virus 2018-06-30 Completed [facility] Vaccine Quad IM 3+ 00:00:00 [facility] Influenza Virus 2018-06-30 Completed [facility] Vaccine Quad IM 3+ 00:00:00 [facility] Influenza Virus 2018-06-30 Completed [facility] Vaccine Quad IM 3+ 00:00:00 [facility] Influenza Virus 2018-06-30 Completed [facility] Vaccine Quad IM 3+ 00:00:00 [facility] Influenza Virus 2018-06-30 Completed [facility] Vaccine Quad IM 3+ 00:00:00 [facility] Influenza Virus 2018-06-30 Completed [facility] Vaccine Quad IM 3+ 00:00:00 [facility] Influenza Virus 2018-06-30 Completed [facility] Vaccine Quad IM 3+ 00:00:00 [facility] Influenza Virus 2018-06-30 Completed [facility] Vaccine Quad IM 3+ 00:00:00 [facility] Influenza Virus 2018-06-30 Completed [facility] Vaccine Quad IM 3+ 00:00:00 [facility] Influenza Virus 2018-06-30 Completed [facility] Vaccine Quad IM 3+ 00:00:00 [facility] Influenza Virus 2018-06-30 Completed [facility] Vaccine Quad IM 3+ 00:00:00 [facility] Influenza Virus 2018-06-30 Completed [facility] Vaccine Quad IM 3+ 00:00:00 [facility] Influenza Virus 2018-06-30 Completed [facility] Vaccine Quad IM 3+ 00:00:00 [facility] Influenza Virus 2018-06-30 Completed [facility] Vaccine Quad IM 3+ 00:00:00 [facility] Influenza Virus 2018-06-30 Completed [facility] Vaccine Quad IM 3+ 00:00:00 [facility] Influenza Virus 2018-06-30 Completed [facility] Vaccine Quad IM 3+ 00:00:00 [facility] Influenza Virus 2018-06-30 Completed [facility] Vaccine Quad IM 3+ 00:00:00 [facility] Influenza Virus 2018-06-30 Completed [facility] Vaccine Quad IM 3+ 00:00:00 [facility] Influenza Virus 2018-06-30 Completed [facility] Vaccine Quad IM 3+ 00:00:00 [facility] Influenza Virus 2018-06-30 Completed [facility] Vaccine Quad IM 3+ 00:00:00 [facility] Influenza Virus 2018-06-30 Completed [facility] Vaccine Quad IM 3+ 00:00:00 [facility] Influenza Virus 2018-06-30 Completed [facility] Vaccine Quad IM 3+ 00:00:00 [facility] Influenza Virus 2018-06-30 Completed [facility] Vaccine Quad IM 3+ 00:00:00 [facility] Influenza Virus 2018-06-30 Completed [facility] Vaccine Quad IM 3+ 00:00:00 [facility] Influenza Virus 2018-06-30 Completed [facility] Vaccine Quad IM 3+ 00:00:00 [facility] Influenza Virus 2018-06-30 Completed [facility] Vaccine Quad IM 3+ 00:00:00 [facility] Influenza Virus 2018-06-30 Completed [facility] Vaccine Quad IM 3+ 00:00:00 [facility] Influenza Virus 2018-06-30 Completed [facility] Vaccine Quad IM 3+ 00:00:00 [facility] Influenza Virus 2018-06-30 Completed [facility] Vaccine Quad IM 3+ 00:00:00 [facility] Influenza Virus 2018-06-30 Completed [facility] Vaccine Quad IM 3+ 00:00:00 [facility] Influenza Virus 2018-06-30 Completed [facility] Vaccine Quad IM 3+ 00:00:00 [facility] Influenza Virus 2018-06-30 Completed [facility] Vaccine Quad IM 3+ 00:00:00 [facility] Influenza Virus 2018-06-30 Completed [facility] Vaccine Quad IM 3+ 00:00:00 [facility] Influenza Virus 2018-06-30 Completed [facility] Vaccine Quad IM 3+ 00:00:00 [facility] Influenza Virus 2018-06-30 Completed [facility] Vaccine Quad IM 3+ 00:00:00 [facility] Influenza Virus 2018-06-30 Completed [facility] Vaccine Quad IM 3+ 00:00:00 [facility] Influenza Virus 2018-06-30 Completed [facility] Vaccine Quad IM 3+ 00:00:00 [facility] Influenza Virus 2018-06-30 Completed [facility] Vaccine Quad IM 3+ 00:00:00 [facility] Influenza Virus 2018-06-30 Completed [facility] Vaccine Quad IM 3+ 00:00:00 [facility] Influenza Virus 2018-06-30 Completed [facility] Vaccine Quad IM 3+ 00:00:00 [facility] Influenza Virus 2018-06-30 Completed [facility] Vaccine Quad IM 3+ 00:00:00 [facility] Influenza Virus 2018-06-30 Completed [facility] Vaccine Quad IM 3+ 00:00:00 [facility] Influenza Virus 2018-06-30 Completed [facility] Vaccine Quad IM 3+ 00:00:00 [facility] Influenza Virus 2018-06-30 Completed [facility] Vaccine Quad IM 3+ 00:00:00 [facility] Influenza Virus 2018-06-30 Completed [facility] Vaccine Quad IM 3+ 00:00:00 [facility] Influenza Virus 2018-06-30 Completed [facility] Vaccine Quad IM 3+ 00:00:00 [facility] Influenza Virus 2018-06-30 Completed [facility] Vaccine Quad IM 3+ 00:00:00 [facility] Influenza Virus 2018-06-30 Completed [facility] Vaccine Quad IM 3+ 00:00:00 [facility] Influenza Virus 2018-06-30 Completed [facility] Vaccine Quad IM 3+ 00:00:00 [facility] Influenza Virus 2018-06-30 Completed [facility] Vaccine Quad IM 3+ 00:00:00 [facility] Influenza Virus 2018-06-30 Completed [facility] Vaccine Quad IM 3+ 00:00:00 [facility] Influenza Virus 2018-06-30 Completed [facility] Vaccine Quad IM 3+ 00:00:00 [facility] Influenza Virus 2018-06-30 Completed [facility] Vaccine Quad IM 3+ 00:00:00 [facility] Influenza Virus 2018-06-30 Completed [facility] Vaccine Quad IM 3+ 00:00:00 [facility] Influenza Virus 2018-06-30 Completed [facility] Vaccine Quad IM 3+ 00:00:00 [facility] Influenza Virus 2018-06-30 Completed [facility] Vaccine Quad IM 3+ 00:00:00 [facility] Influenza Virus 2018-06-30 Completed [facility] Vaccine Quad IM 3+ 00:00:00 [facility] Influenza Virus 2018-06-30 Completed [facility] Vaccine Quad IM 3+ 00:00:00 [facility] Influenza Virus 2018-06-30 Completed [facility] Vaccine Quad IM 3+ 00:00:00 [facility] Influenza Virus 2018-06-30 Completed [facility] of Vaccine Quad IM 3+ 00:00:00 [facility] Influenza Virus 2018-06-30 Completed [facility] Vaccine Quad IM 3+ 00:00:00 [facility] Influenza Virus 2018-06-30 Completed [facility] Vaccine Quad IM 3+ 00:00:00 [facility] Influenza Virus 2018-06-30 Completed [facility] Vaccine Quad IM 3+ 00:00:00 [facility] Influenza Virus 2018-06-30 Completed [facility] Vaccine Quad IM 3+ 00:00:00 [facility] Influenza Virus 2018-06-30 Completed [facility] Vaccine Quad IM 3+ 00:00:00 [facility] Influenza Virus 2018-06-30 Completed [facility] Vaccine Quad IM 3+ 00:00:00 [facility] Influenza Virus 2018-06-30 Completed [facility] Vaccine Quad IM 3+ 00:00:00 [facility] Influenza Virus 2018-06-30 Completed [facility] Vaccine Quad IM 3+ 00:00:00 [facility] Influenza Virus 2018-06-30 Completed [facility] Vaccine Quad IM 3+ 00:00:00 [facility] Influenza Virus 2018-06-30 Completed [facility] Vaccine Quad IM 3+ 00:00:00 [facility] Influenza Virus 2018-06-30 Completed [facility] Vaccine Quad IM 3+ 00:00:00 [facility] Influenza Virus 2018-06-30 Completed [facility] Vaccine Quad IM 3+ 00:00:00 [facility] Influenza Virus 2018-06-30 Completed [facility] Vaccine Quad IM 3+ 00:00:00 [facility] Influenza Virus 2018-06-30 Completed [facility] Vaccine Quad IM 3+ 00:00:00 [facility] Influenza Virus 2018-06-30 Completed [facility] of Vaccine Quad IM 3+ 00:00:00 [facility] Influenza Virus 2018-06-30 Completed [facility] of Vaccine Quad IM 3+ 00:00:00 [facility] Influenza Virus 2018-06-30 Completed [facility] of Vaccine Quad IM 3+ 00:00:00 [facility] Influenza Virus 2018-06-30 Completed [facility] of Vaccine Quad IM 3+ 00:00:00 [facility] Influenza Virus 2018-06-30 Completed [facility] Vaccine Quad IM 3+ 00:00:00 [facility] Influenza Virus 2018-06-30 Completed [facility] Vaccine Quad IM 3+ 00:00:00 [facility] Influenza Virus 2018-06-30 Completed [facility] Vaccine Quad IM 3+ 00:00:00 [facility] Influenza Virus 2017-06-15 Completed [facility] of Vaccine Quad ID [id number] 00:00:00 [facility] Influenza Virus 2017-06-15 Completed [facility] [...] OMV 2016-03-07 Completed Univ ersity of 00:00:00 [facility] Pneumococcal 13 2016-03-07 Completed [facility] of Conjugate, PCV13 00:00:00 [facility] dical (Prevnar 13) Branch Meningococcal B, OMV 2016-03-07 Completed [facility] ers[facility] of 00:00:00 [facility] Pneumococcal 13 2016-03-07 Completed [facility] of Conjugate, PCV13 00:00:00 [facility] dical (Prevnar 13) Branch Meningococcal B, OMV 2016-03-07 Completed [facility] ers[facility] of 00:00:00 [facility] Pneumococcal 13 2016-03-07 Completed [facility] of Conjugate, PCV13 00:00:00 [place] [facility] (Prevnar 13) Branch Meningococcal B, V 2016-03-07 Completed [facility] of 00:00:00 [facility] Pneumococcal 13 2016-03-07 Completed [facility] of Conjugate, PCV13 00:00:00 [place] [facility] (Prevnar 13) Branch Meningococcal B, V 2016-03-07 Completed [facility] 00:00:00 [facility] Pneumococcal 13 2016-03-07 Completed [facility] of Conjugate, PCV13 00:00:00 [place] [facility] (Prevnar 13) Branch Meningococcal B, [facility] 2016-03-07 Completed [facility] 00:00:00 [facility] Pneumococcal 13 2016-03-07 Completed [facility] Conjugate, PCV13 00:00:00 [place] [facility] (Prevnar 13) Branch Meningococcal B, [facility] 2016-03-07 Completed [facility] 00:00:00 [facility] Pneumococcal 13 2016-03-07 Completed [facility] of Conjugate, PCV13 00:00:00 [place] [facility] (Prevnar 13) Branch Meningococcal B, [facility] 2016-03-07 Completed [facility] 00:00:00 [facility] Pneumococcal 13 2016-03-07 Completed [facility] Conjugate, PCV13 00:00:00 [place] [facility] (Prevnar 13) Branch Meningococcal B, [facility] 2016-03-07 Completed [facility] 00:00:00 [facility] Pneumococcal 13 2016-03-07 Completed [facility] Conjugate, PCV13 00:00:00 [place] [facility] (Prevnar 13) Branch Meningococcal B, [facility] 2016-03-07 Completed [facility] 00:00:00 [facility] Pneumococcal 13 2016-03-07 Completed [facility] Conjugate, PCV13 00:00:00 [place] [facility] (Prevnar 13) Branch Meningococcal B, [facility] 2016-03-07 Completed [facility] 00:00:00 [facility] Pneumococcal 13 2016-03-07 Completed [facility] Conjugate, PCV13 00:00:00 [place] [facility] (Prevnar 13) Branch Meningococcal B, [facility] 2016-03-07 Completed [facility] 00:00:00 [facility] Pneumococcal 13 2016-03-07 Completed [facility] Conjugate, PCV13 00:00:00 [place] [facility] (Prevnar 13) Branch Meningococcal B, V 2016-03-07 Completed [facility] 00:00:00 [facility] Pneumococcal 13 2016-03-07 Completed [facility] of Conjugate, PCV13 00:00:00 [place] [facility] (Prevnar 13) Branch Meningococcal B, V 2016-03-07 Completed [facility] 00:00:00 [facility] Pneumococcal 13 2016-03-07 Completed [facility] of Conjugate, PCV13 00:00:00 [place] [facility] (Prevnar 13) Branch Meningococcal B, V 2016-03-07 Completed [facility] 00:00:00 [facility] Pneumococcal 13 2016-03-07 Completed [facility] of Conjugate, PCV13 00:00:00 [place] [facility] (Prevnar 13) Branch Meningococcal B, [facility] 2016-03-07 Completed [facility] 00:00:00 [facility] Pneumococcal 13 2016-03-07 Completed [facility] of Conjugate, PCV13 00:00:00 [place] [facility] (Prevnar 13) Branch Meningococcal B, [facility] 2016-03-07 Completed [facility] 00:00:00 [facility] Pneumococcal 13 2016-03-07 Completed [facility] of Conjugate, PCV13 00:00:00 [place] [facility] (Prevnar 13) Branch Meningococcal B, [facility] 2016-03-07 Completed [facility] 00:00:00 [facility] Pneumococcal 13 2016-03-07 Completed [facility] of Conjugate, PCV13 00:00:00 [place] [facility] (Prevnar 13) Branch Meningococcal B, [facility] 2016-03-07 Completed [facility] 00:00:00 [facility] Pneumococcal 13 2016-03-07 Completed [facility] of Conjugate, PCV13 00:00:00 [place] [facility] (Prevnar 13) Branch Meningococcal B, [facility] 2016-03-07 Completed [facility] 00:00:00 [facility] Pneumococcal 13 2016-03-07 Completed [facility] of Conjugate, PCV13 00:00:00 [place] [facility] (Prevnar 13) Branch Meningococcal B, [facility] 2016-03-07 Completed [facility] 00:00:00 [facility] Pneumococcal 13 2016-03-07 Completed [facility] of Conjugate, PCV13 00:00:00 [place] [facility] (Prevnar 13) Branch Meningococcal B, V 2016-03-07 Completed [facility] 00:00:00 [facility] Pneumococcal 13 2016-03-07 Completed [facility] of Conjugate, PCV13 00:00:00 [place] [facility] (Prevnar 13) Branch Meningococcal B, V 2016-03-07 Completed [facility] 00:00:00 [facility] Pneumococcal 13 2016-03-07 Completed [facility] of Conjugate, PCV13 00:00:00 [place] [facility] (Prevnar 13) Branch Meningococcal B, [facility] 2016-03-07 Completed [facility] 00:00:00 [facility] Pneumococcal 13 2016-03-07 Completed [facility] of Conjugate, PCV13 00:00:00 [place] [facility] (Prevnar 13) Branch Meningococcal B, [facility] 2016-03-07 Completed [facility] 00:00:00 [facility] Pneumococcal 13 2016-03-07 Completed [facility] of Conjugate, PCV13 00:00:00 [place] [facility] (Prevnar 13) Branch Meningococcal B, [facility] 2016-03-07 Completed [facility] 00:00:00 [facility] Pneumococcal 13 2016-03-07 Completed [facility] of Conjugate, PCV13 00:00:00 [place] [facility] (Prevnar 13) Branch Meningococcal B, [facility] 2016-03-07 Completed [facility] 00:00:00 [facility] Pneumococcal 13 2016-03-07 Completed [facility] of Conjugate, PCV13 00:00:00 [facility] dical (Prevnar 13) Branch Meningococcal B, [facility] 2016-03-07 Completed [facility] 00:00:00 [facility] Pneumococcal 13 2016-03-07 Completed [facility] of Conjugate, PCV13 00:00:00 [place] [facility] (Prevnar 13) Branch Meningococcal B, [facility] 2016-03-07 Completed [facility] 00:00:00 [facility] Pneumococcal 13 2016-03-07 Completed [facility] of Conjugate, PCV13 00:00:00 [place] [facility] (Prevnar 13) Branch Meningococcal B, [facility] 2016-03-07 Completed [facility] 00:00:00 [facility] Pneumococcal 13 2016-03-07 Completed [facility] of Conjugate, PCV13 00:00:00 [place] [facility] (Prevnar 13) Branch Meningococcal B, [facility] 2016-03-07 Completed [facility] 00:00:00 [facility] Pneumococcal 13 2016-03-07 Completed [facility] of Conjugate, PCV13 00:00:00 [place] [facility] (Prevnar 13) Branch Meningococcal B, [facility] 2016-03-07 Completed [facility] 00:00:00 [facility] Pneumococcal 13 2016-03-07 Completed [facility] of Conjugate, PCV13 00:00:00 [place] [facility] (Prevnar 13) Branch Meningococcal B, [facility] 2016-03-07 Completed [facility] 00:00:00 [facility] Pneumococcal 13 2016-03-07 Completed [facility] of Conjugate, PCV13 00:00:00 [place] [facility] (Prevnar 13) Branch Meningococcal B, [facility] 2016-03-07 Completed [facility] 00:00:00 [facility] Pneumococcal 13 2016-03-07 Completed [facility] of Conjugate, PCV13 00:00:00 [place] [facility] (Prevnar 13) Branch Meningococcal B, [facility] 2016-03-07 Completed [facility] 00:00:00 [facility] Pneumococcal 13 2016-03-07 Completed [facility] of Conjugate, PCV13 00:00:00 [place] [facility] (Prevnar 13) Branch Meningococcal B, [facility] 2016-03-07 Completed [facility] 00:00:00 [facility] Pneumococcal 13 2016-03-07 Completed [facility] of Conjugate, PCV13 00:00:00 [place] [facility] (Prevnar 13) Branch Meningococcal B, [facility] 2016-03-07 Completed [facility] 00:00:00 [facility] Pneumococcal 13 2016-03-07 Completed [facility] of Conjugate, PCV13 00:00:00 [place] [facility] (Prevnar 13) Branch Meningococcal B, [facility] 2016-03-07 Completed [facility] 00:00:00 [facility] Pneumococcal 13 2016-03-07 Completed [facility] of Conjugate, PCV13 00:00:00 [place] [facility] (Prevnar 13) Branch Meningococcal B, [facility] 2016-03-07 Completed [facility] 00:00:00 [facility] Pneumococcal 13 2016-03-07 Completed [facility] of Conjugate, PCV13 00:00:00 [place] [facility] (Prevnar 13) Branch Meningococcal B, V 2016-03-07 Completed [facility] 00:00:00 [facility] Pneumococcal 13 2016-03-07 Completed [facility] of Conjugate, PCV13 00:00:00 [place] [facility] (Prevnar 13) Branch Meningococcal B, [facility] 2016-03-07 Completed [facility] 00:00:00 [facility] Pneumococcal 13 2016-03-07 Completed [facility] of Conjugate, PCV13 00:00:00 [place] [facility] (Prevnar 13) Branch Meningococcal B, [facility] 2016-03-07 Completed [facility] 00:00:00 [facility] Pneumococcal 13 2016-03-07 Completed [facility] of Conjugate, PCV13 00:00:00 [place] [facility] (Prevnar 13) Branch Meningococcal B, [facility] 2016-03-07 Completed [facility] 00:00:00 [facility] Pneumococcal 13 2016-03-07 Completed [facility] of Conjugate, PCV13 00:00:00 [place] [facility] (Prevnar 13) Branch Meningococcal B, [facility] 2016-03-07 Completed [facility] 00:00:00 [facility] Pneumococcal 13 2016-03-07 Completed [facility] of Conjugate, PCV13 00:00:00 [place] [facility] (Prevnar 13) Branch Meningococcal B, [facility] 2016-03-07 Completed [facility] 00:00:00 [facility] Pneumococcal 13 2016-03-07 Completed [facility] of Conjugate, PCV13 00:00:00 [place] [facility] (Prevnar 13) Branch Meningococcal B, [facility] 2016-03-07 Completed [facility] 00:00:00 [facility] Pneumococcal 13 2016-03-07 Completed [facility] of Conjugate, PCV13 00:00:00 [place] [facility] (Prevnar 13) Branch Meningococcal B, [facility] 2016-03-07 Completed [facility] 00:00:00 [facility] Pneumococcal 13 2016-03-07 Completed [facility] of Conjugate, PCV13 00:00:00 [place] [facility] (Prevnar 13) Branch Meningococcal B, [facility] 2016-03-07 Completed [facility] 00:00:00 [facility] Pneumococcal 13 2016-03-07 Completed [facility] of Conjugate, PCV13 00:00:00 [place] [facility] (Prevnar 13) Branch Meningococcal B, [facility] 2016-03-07 Completed [facility] 00:00:00 [facility] Pneumococcal 13 2016-03-07 Completed [facility] of Conjugate, PCV13 00:00:00 [place] [facility] (Prevnar 13) Branch Meningococcal B, [facility] 2016-03-07 Completed [facility] 00:00:00 [facility] Pneumococcal 13 2016-03-07 Completed [facility] of Conjugate, PCV13 00:00:00 [place] [facility] (Prevnar 13) Branch Meningococcal B, [facility] 2016-03-07 Completed [facility] 00:00:00 [facility] Pneumococcal 13 2016-03-07 Completed [facility] of Conjugate, PCV13 00:00:00 [place] [facility] (Prevnar 13) Branch Meningococcal B, [facility] 2016-03-07 Completed [facility] 00:00:00 [facility] Pneumococcal 13 2016-03-07 Completed [facility] of Conjugate, PCV13 00:00:00 [place] [facility] (Prevnar 13) Branch Meningococcal B, [facility] 2016-03-07 Completed [facility] 00:00:00 [facility] Pneumococcal 13 2016-03-07 Completed [facility] of Conjugate, PCV13 00:00:00 [place] [facility] (Prevnar 13) Branch Meningococcal B, [facility] 2016-03-07 Completed [facility] 00:00:00 [facility] Pneumococcal 13 2016-03-07 Completed [facility] of Conjugate, PCV13 00:00:00 [place] [facility] (Prevnar 13) Branch Meningococcal B, [facility] 2016-03-07 Completed [facility] 00:00:00 [facility] Pneumococcal 13 2016-03-07 Completed [facility] of Conjugate, PCV13 00:00:00 [place] [facility] (Prevnar 13) Branch Meningococcal B, [facility] 2016-03-07 Completed [facility] 00:00:00 [facility] Pneumococcal 13 2016-03-07 Completed [facility] of Conjugate, PCV13 00:00:00 [place] [facility] (Prevnar 13) Branch Meningococcal B, [facility] 2016-03-07 Completed [facility] 00:00:00 [facility] Pneumococcal 13 2016-03-07 Completed [facility] of Conjugate, PCV13 00:00:00 [place] [facility] (Prevnar 13) Branch Meningococcal B, [facility] 2016-03-07 Completed [facility] 00:00:00 [facility] Pneumococcal 13 2016-03-07 Completed [facility] of Conjugate, PCV13 00:00:00 [place] [facility] (Prevnar 13) Branch Meningococcal B, [facility] 2016-03-07 Completed [facility] 00:00:00 [facility] Pneumococcal 13 2016-03-07 Completed [facility] of Conjugate, PCV13 00:00:00 [place] [facility] (Prevnar 13) Branch Meningococcal B, [facility] 2016-03-07 Completed [facility] 00:00:00 [facility] Pneumococcal 13 2016-03-07 Completed [facility] of Conjugate, PCV13 00:00:00 [place] [facility] (Prevnar 13) Branch Meningococcal B, [facility] 2016-03-07 Completed [facility] 00:00:00 [facility] Pneumococcal 13 2016-03-07 Completed [facility] of Conjugate, PCV13 00:00:00 [place] [facility] (Prevnar 13) Branch Meningococcal B, [facility] 2016-03-07 Completed [facility] 00:00:00 [facility] Pneumococcal 13 2016-03-07 Completed [facility] of Conjugate, PCV13 00:00:00 [place] [facility] (Prevnar 13) Branch Meningococcal B, [facility] 2016-03-07 Completed [facility] 00:00:00 [facility] Pneumococcal 13 2016-03-07 Completed [facility] of Conjugate, PCV13 00:00:00 [place] [facility] (Prevnar 13) Branch Meningococcal B, [facility] 2016-03-07 Completed [facility] 00:00:00 [facility] Pneumococcal 13 2016-03-07 Completed [facility] of Conjugate, PCV13 00:00:00 [place] [facility] (Prevnar 13) Branch Meningococcal B, [facility] 2016-03-07 Completed [facility] 00:00:00 [facility] Pneumococcal 13 2016-03-07 Completed [facility] of Conjugate, PCV13 00:00:00 [place] [facility] (Prevnar 13) Branch Meningococcal B, [facility] 2016-03-07 Completed [facility] 00:00:00 [facility] Pneumococcal 13 2016-03-07 Completed [facility] of Conjugate, PCV13 00:00:00 [place] [facility] (Prevnar 13) Branch Meningococcal B, V 2016-03-07 Completed [facility] 00:00:00 [facility] Pneumococcal 13 2016-03-07 Completed [facility] of Conjugate, PCV13 00:00:00 [place] [facility] (Prevnar 13) Branch Meningococcal B, V 2016-03-07 Completed [facility] 00:00:00 [facility] Pneumococcal 13 2016-03-07 Completed [facility] of Conjugate, PCV13 00:00:00 [place] [facility] (Prevnar 13) Branch Meningococcal B, V 2016-03-07 Completed [facility] 00:00:00 [facility] Pneumococcal 13 2016-03-07 Completed [facility] of Conjugate, PCV13 00:00:00 [place] [facility] (Prevnar 13) Branch Meningococcal B, V 2016-03-07 Completed [facility] 00:00:00 [facility] Pneumococcal 13 2016-03-07 Completed [facility] of Conjugate, PCV13 00:00:00 [place] [facility] (Prevnar 13) Branch Meningococcal B, V 2016-03-07 Completed [facility] 00:00:00 [facility] Pneumococcal 13 2016-03-07 Completed [facility] of Conjugate, PCV13 00:00:00 [place] [facility] (Prevnar 13) Branch Meningococcal B, [facility] 2016-03-07 Completed [facility] 00:00:00 [facility] Pneumococcal 13 2016-03-07 Completed [facility] of Conjugate, PCV13 00:00:00 [place] [facility] (Prevnar 13) Branch Meningococcal B, V 2016-03-07 Completed [facility] 00:00:00 [facility] Pneumococcal 13 2016-03-07 Completed [facility] of Conjugate, PCV13 00:00:00 [place] [facility] (Prevnar 13) Branch Meningococcal B, V 2016-03-07 Completed [facility] 00:00:00 [facility] Pneumococcal 13 2016-03-07 Completed [facility] of Conjugate, PCV13 00:00:00 [place] [facility] (Prevnar 13) Branch Meningococcal B, V 2016-03-07 Completed [facility] 00:00:00 [facility] Pneumococcal 13 2016-03-07 Completed [facility] of Conjugate, PCV13 00:00:00 [place] [facility] (Prevnar 13) Branch Meningococcal B, V 2016-03-07 Completed [facility] 00:00:00 [facility] Pneumococcal 13 2016-03-07 Completed [facility] of Conjugate, PCV13 00:00:00 [place] [facility] (Prevnar 13) Branch Meningococcal B, V 2016-03-07 Completed [facility] 00:00:00 [facility] Pneumococcal 13 2016-03-07 Completed [facility] of Conjugate, PCV13 00:00:00 [place] [facility] (Prevnar 13) Branch Meningococcal B, V 2016-03-07 Completed [facility] 00:00:00 [facility] Pneumococcal 13 2016-03-07 Completed [facility] of Conjugate, PCV13 00:00:00 [place] [facility] (Prevnar 13) Branch Meningococcal B, V 2016-03-07 Completed [facility] 00:00:00 [facility] Pneumococcal 13 2016-03-07 Completed [facility] of Conjugate, PCV13 00:00:00 [place] [facility] (Prevnar 13) Branch Meningococcal B, V 2016-03-07 Completed [facility] 00:00:00 [facility] Pneumococcal 13 2016-03-07 Completed [facility] of Conjugate, PCV13 00:00:00 [place] [facility] (Prevnar 13) Branch Meningococcal B, [facility] 2016-03-07 Completed [facility] 00:00:00 [facility] Pneumococcal 13 2016-03-07 Completed [facility] of Conjugate, PCV13 00:00:00 [place] [facility] (Prevnar 13) Branch Meningococcal B, V 2016-03-07 Completed [facility] 00:00:00 [facility] Pneumococcal 13 2016-03-07 Completed [facility] of Conjugate, PCV13 00:00:00 [place] [facility] (Prevnar 13) Branch Meningococcal B, V 2016-03-07 Completed [facility] 00:00:00 [facility] Pneumococcal 13 2016-03-07 Completed [facility] of Conjugate, PCV13 00:00:00 [place] [facility] (Prevnar 13) Branch Meningococcal B, V 2016-03-07 Completed [facility] 00:00:00 [facility] Pneumococcal 13 2016-03-07 Completed [facility] of Conjugate, PCV13 00:00:00 [place] [facility] (Prevnar 13) Branch Meningococcal B, [facility] 2016-03-07 Completed [facility] 00:00:00 [facility] Pneumococcal 13 2016-03-07 Completed [facility] of Conjugate, PCV13 00:00:00 [place] [facility] (Prevnar 13) Branch Meningococcal B, V 2016-03-07 Completed [facility] 00:00:00 [facility] Pneumococcal 13 2016-03-07 Completed [facility] of Conjugate, PCV13 00:00:00 [place] [facility] (Prevnar 13) Branch Meningococcal B, V 2016-03-07 Completed [facility] 00:00:00 [facility] Pneumococcal 13 2016-03-07 Completed [facility] of Conjugate, PCV13 00:00:00 [place] [facility] (Prevnar 13) Branch Meningococcal B, [facility] 2016-03-07 Completed [facility] 00:00:00 [facility] Pneumococcal 13 2016-03-07 Completed [facility] of Conjugate, PCV13 00:00:00 [place] [facility] (Prevnar 13) Branch Meningococcal B, [facility] 2016-03-07 Completed [facility] 00:00:00 [facility] Pneumococcal 13 2016-03-07 Completed [facility] of Conjugate, PCV13 00:00:00 [place] [facility] (Prevnar 13) Branch Meningococcal B, [facility] 2016-03-07 Completed [facility] 00:00:00 [facility] Pneumococcal 13 2016-03-07 Completed [facility] of Conjugate, PCV13 00:00:00 [place] [facility] (Prevnar 13) Branch Meningococcal B, [facility] 2016-03-07 Completed [facility] 00:00:00 [facility] Pneumococcal 13 2016-03-07 Completed [facility] of Conjugate, PCV13 00:00:00 [place] [facility] (Prevnar 13) Branch Meningococcal B, [facility] 2016-03-07 Completed [facility] 00:00:00 [facility] Pneumococcal 13 2016-03-07 Completed [facility] of Conjugate, PCV13 00:00:00 [place] [facility] (Prevnar 13) Branch Meningococcal B, [facility] 2016-03-07 Completed [facility] 00:00:00 [facility] Pneumococcal 13 2016-03-07 Completed [facility] of Conjugate, PCV13 00:00:00 [place] [facility] (Prevnar 13) Branch Meningococcal B, [facility] 2016-03-07 Completed [facility] 00:00:00 [facility] Pneumococcal 13 2016-03-07 Completed [facility] of Conjugate, PCV13 00:00:00 [place] [facility] (Prevnar 13) Branch Meningococcal B, V 2016-03-07 Completed [facility] 00:00:00 [facility] Pneumococcal 13 2016-03-07 Completed [facility] of Conjugate, PCV13 00:00:00 [place] [facility] (Prevnar 13) Branch Meningococcal B, V 2016-03-07 Completed [facility] 00:00:00 [facility] Pneumococcal 13 2016-03-07 Completed [facility] of Conjugate, PCV13 00:00:00 [place] [facility] (Prevnar 13) Branch Meningococcal B, V 2016-03-07 Completed [facility] 00:00:00 [facility] Pneumococcal 13 2016-03-07 Completed [facility] of Conjugate, PCV13 00:00:00 [place] [facility] (Prevnar 13) Branch Meningococcal B, V 2016-03-07 Completed [facility] 00:00:00 [facility] Pneumococcal 13 2016-03-07 Completed [facility] of Conjugate, PCV13 00:00:00 [place] [facility] (Prevnar 13) Branch Meningococcal B, [facility] 2016-03-07 Completed [facility] 00:00:00 [facility] Pneumococcal 13 2016-03-07 Completed [facility] of Conjugate, PCV13 00:00:00 [place] [facility] (Prevnar 13) Branch Meningococcal B, [facility] 2016-03-07 Completed [facility] 00:00:00 [facility] Pneumococcal 13 2016-03-07 Completed [facility] of Conjugate, PCV13 00:00:00 [place] [facility] (Prevnar 13) Branch Meningococcal B, V 2016-03-07 Completed [facility] 00:00:00 [facility] Pneumococcal 13 2016-03-07 Completed [facility] of Conjugate, PCV13 00:00:00 [place] [facility] (Prevnar 13) Branch Meningococcal B, [facility] 2016-03-07 Completed [facility] 00:00:00 [facility] Pneumococcal 13 2016-03-07 Completed [facility] of Conjugate, PCV13 00:00:00 [place] [facility] (Prevnar 13) Branch Meningococcal B, [facility] 2016-03-07 Completed [facility] 00:00:00 [facility] Pneumococcal 13 2016-03-07 Completed [facility] of Conjugate, PCV13 00:00:00 [place] [facility] (Prevnar 13) Branch Meningococcal B, OMV 2016-03-07 Completed [facility] 00:00:00 [facility] Pneumococcal 13 2016-03-07 Completed [facility] of Conjugate, PCV13 00:00:00 [place] [facility] (Prevnar 13) Branch Meningococcal B, OMV 2016-03-07 Completed [facility] 00:00:00 [facility] Pneumococcal 13 2016-03-07 Completed [facility] of Conjugate, PCV13 00:00:00 [place] [facility] (Prevnar 13) Branch Meningococcal B, OMV 2016-03-07 Completed [facility] 00:00:00 [facility] Pneumococcal 13 2016-03-07 Completed [facility] of Conjugate, PCV13 00:00:00 [place] [facility] (Prevnar 13) Branch Meningococcal B, OMV 2016-03-07 Completed [facility] 00:00:00 [facility] Pneumococcal 13 2016-03-07 Completed [facility] Conjugate, PCV13 00:00:00 [place] [facility] (Prevnar 13) Branch Meningococcal B, V 2016-03-07 Completed Univ ersity of 00:00:00 [facility] Heamophil[facility] Influenza 2015-11-13 Completed Uni versity of B 00:00:00 [facility] Heamophil[facility] Influenza 2015-11-13 Completed Uni versity of B 00:00:00 [facility] Heamophilus Influenza 2015-11-13 Completed Uni versity of B 00:00:00 [facility] Heamophilus Influenza 2015-11-13 Completed Uni versity of B 00:00:00 [facility] Heamophilus Influenza 2015-11-13 Completed Uni versity of B 00:00:00 [facility] Heamophilus Influenza 2015-11-13 Completed Uni versity of B 00:00:00 [facility] Heamophilus Influenza 2015-11-13 Completed Uni versity of B 00:00:00 [facility] Heamophilus Influenza 2015-11-13 Completed Uni versity of B 00:00:00 [facility] Heamophilus Influenza 2015-11-13 Completed Uni versity of B 00:00:00 [facility] Heamophilus Influenza 2015-11-13 Completed Uni versity of B 00:00:00 [facility] Heamophilus Influenza 2015-11-13 Completed Uni versity of B 00:00:00 [facility] Heamophilus Influenza 2015-11-13 Completed Uni versity of B 00:00:00 [facility] Heamophilus Influenza 2015-11-13 Completed Uni versity of B 00:00:00 [facility] Heamophilus Influenza 2015-11-13 Completed Uni versity of B 00:00:00 [facility] Heamophilus Influenza 2015-11-13 Completed Uni versity of B 00:00:00 [facility] Heamophilus Influenza 2015-11-13 Completed Uni versity of B 00:00:00 [facility] Heamophilus Influenza 2015-11-13 Completed Uni versity of B 00:00:00 [facility] Heamophilus Influenza 2015-11-13 Completed Uni versity of B 00:00:00 [facility] Heamophilus Influenza 2015-11-13 Completed Uni versity of B 00:00:00 [facility] Heamophilus Influenza 2015-11-13 Completed Uni versity of B 00:00:00 [facility] Heamophilus Influenza 2015-11-13 Completed Uni versity of B 00:00:00 [facility] Heamophilus Influenza 2015-11-13 Completed Uni versity of B 00:00:00 [facility] Heamophilus Influenza 2015-11-13 Completed Uni versity of B 00:00:00 [facility] Heamophilus Influenza 2015-11-13 Completed Uni versity of B 00:00:00 [facility] Heamophilus Influenza 2015-11-13 Completed Uni versity of B 00:00:00 [facility] Heamophilus Influenza 2015-11-13 Completed Uni versity of B 00:00:00 [facility] Heamophilus Influenza 2015-11-13 Completed Uni versity of B 00:00:00 [facility] Heamophilus Influenza 2015-11-13 Completed Uni versity of B 00:00:00 [facility] Heamophilus Influenza 2015-11-13 Completed Uni versity of B 00:00:00 [facility] Heamophilus Influenza 2015-11-13 Completed Uni versity of B 00:00:00 [facility] Heamophilus Influenza 2015-11-13 Completed Uni versity of B 00:00:00 [facility] Heamophilus Influenza 2015-11-13 Completed Uni versity of B 00:00:00 [facility] Heamophilus Influenza 2015-11-13 Completed Uni versity of B 00:00:00 [facility] Heamophilus Influenza 2015-11-13 Completed Uni versity of B 00:00:00 [facility] Heamophilus Influenza 2015-11-13 Completed Uni versity of B 00:00:00 [facility] Heamophilus Influenza 2015-11-13 Completed Uni versity of B 00:00:00 [facility] Heamophilus Influenza 2015-11-13 Completed Uni versity of B 00:00:00 [facility] Heamophilus Influenza 2015-11-13 Completed Uni versity of B 00:00:00 [facility] Heamophilus Influenza 2015-11-13 Completed Uni versity of B 00:00:00 [facility] Heamophilus Influenza 2015-11-13 Completed Uni versity of B 00:00:00 [facility] Heamophilus Influenza 2015-11-13 Completed Uni versity of B 00:00:00 [facility] Heamophilus Influenza 2015-11-13 Completed Uni versity of B 00:00:00 [facility] Heamophilus Influenza 2015-11-13 Completed Uni versity of B 00:00:00 [facility] Heamophilus Influenza 2015-11-13 Completed Uni versity of B 00:00:00 [facility] Heamophilus Influenza 2015-11-13 Completed Uni versity of B 00:00:00 [facility] Heamophilus Influenza 2015-11-13 Completed Uni versity of B 00:00:00 [facility] Heamophilus Influenza 2015-11-13 Completed Uni versity of B 00:00:00 [facility] Heamophilus Influenza 2015-11-13 Completed Uni versity of B 00:00:00 [facility] Heamophilus Influenza 2015-11-13 Completed Uni versity of B 00:00:00 [facility] Heamophilus Influenza 2015-11-13 Completed Uni versity of B 00:00:00 [facility] Heamophilus Influenza 2015-11-13 Completed Uni versity of B 00:00:00 [facility] Heamophilus Influenza 2015-11-13 Completed Uni versity of B 00:00:00 [facility] Heamophilus Influenza 2015-11-13 Completed Uni versity of B 00:00:00 [facility] Heamophilus Influenza 2015-11-13 Completed Uni versity of B 00:00:00 [facility] Heamophilus Influenza 2015-11-13 Completed Uni versity of B 00:00:00 [facility] Heamophilus Influenza 2015-11-13 Completed Uni versity of B 00:00:00 [facility] Heamophilus Influenza 2015-11-13 Completed Uni versity of B 00:00:00 [facility] Heamophilus Influenza 2015-11-13 Completed Uni versity of B 00:00:00 [facility] Heamophilus Influenza 2015-11-13 Completed Uni versity of B 00:00:00 [facility] Heamophilus Influenza 2015-11-13 Completed Uni versity of B 00:00:00 [facility] Heamophilus Influenza 2015-11-13 Completed Uni versity of B 00:00:00 [facility] Heamophilus Influenza 2015-11-13 Completed Uni versity of B 00:00:00 [facility] Heamophilus Influenza 2015-11-13 Completed Uni versity of B 00:00:00 [facility] Heamophilus Influenza 2015-11-13 Completed Uni versity of B 00:00:00 [facility] Heamophilus Influenza 2015-11-13 Completed Uni versity of B 00:00:00 [facility] Heamophilus Influenza 2015-11-13 Completed Uni versity of B 00:00:00 [facility] Heamophilus Influenza 2015-11-13 Completed Uni versity of B 00:00:00 [facility] Heamophilus Influenza 2015-11-13 Completed Uni versity of B 00:00:00 [facility] Heamophilus Influenza 2015-11-13 Completed Uni versity of B 00:00:00 [facility] Heamophilus Influenza 2015-11-13 Completed Uni versity of B 00:00:00 [facility] Heamophilus Influenza 2015-11-13 Completed Uni versity of B 00:00:00 [facility] Heamophilus Influenza 2015-11-13 Completed Uni versity of B 00:00:00 [facility] Heamophilus Influenza 2015-11-13 Completed Uni versity of B 00:00:00 [facility] Heamophilus Influenza 2015-11-13 Completed Uni versity of B 00:00:00 [facility] Heamophilus Influenza 2015-11-13 Completed Uni versity of B 00:00:00 [facility] Heamophilus Influenza 2015-11-13 Completed Uni versity of B 00:00:00 [facility] Heamophilus Influenza 2015-11-13 Completed Uni versity of B 00:00:00 [facility] Heamophilus Influenza 2015-11-13 Completed Uni versity of B 00:00:00 [facility] Heamophilus Influenza 2015-11-13 Completed Uni versity of B 00:00:00 [facility] Heamophilus Influenza 2015-11-13 Completed Uni versity of B 00:00:00 [facility] Heamophilus Influenza 2015-11-13 Completed Uni versity of B 00:00:00 [facility] Heamophilus Influenza 2015-11-13 Completed Uni versity of B 00:00:00 [facility] Heamophilus Influenza 2015-11-13 Completed Uni versity of B 00:00:00 [facility] Heamophilus Influenza 2015-11-13 Completed Uni versity of B 00:00:00 [facility] Heamophilus Influenza 2015-11-13 Completed Uni versity of B 00:00:00 [facility] Heamophilus Influenza 2015-11-13 Completed Uni versity of B 00:00:00 [facility] Heamophilus Influenza 2015-11-13 Completed Uni versity of B 00:00:00 [facility] Heamophilus Influenza 2015-11-13 Completed Uni versity of B 00:00:00 [facility] Heamophilus Influenza 2015-11-13 Completed Uni versity of B 00:00:00 [facility] Heamophilus Influenza 2015-11-13 Completed Uni versity of B 00:00:00 [facility] Heamophilus Influenza 2015-11-13 Completed Uni versity of B 00:00:00 [facility] Heamophilus Influenza 2015-11-13 Completed Uni versity of B 00:00:00 [facility] Heamophilus Influenza 2015-11-13 Completed Uni versity of B 00:00:00 [facility] Heamophilus Influenza 2015-11-13 Completed Uni versity of B 00:00:00 [facility] Heamophilus Influenza 2015-11-13 Completed Uni versity of B 00:00:00 [facility] Heamophilus Influenza 2015-11-13 Completed Uni versity of B 00:00:00 [facility] Heamophilus Influenza 2015-11-13 Completed Uni versity of B 00:00:00 [facility] Heamophilus Influenza 2015-11-13 Completed Uni versity of B 00:00:00 [facility] Heamophilus Influenza 2015-11-13 Completed Uni versity of B 00:00:00 [facility] Heamophilus Influenza 2015-11-13 Completed Uni versity of B 00:00:00 [facility] Heamophilus Influenza 2015-11-13 Completed Uni versity of B 00:00:00 [facility] Heamophilus Influenza 2015-11-13 Completed Uni versity of B 00:00:00 [facility] Heamophilus Influenza 2015-11-13 Completed Uni versity of B 00:00:00 [facility] Heamophilus Influenza 2015-11-13 Completed Uni versity of B 00:00:00 [facility] Heamophilus Influenza 2015-11-13 Completed Uni versity of B 00:00:00 [facility] Heamophilus Influenza 2015-11-13 Completed Uni versity of B 00:00:00 [facility] Heamophilus Influenza 2015-11-13 Completed Uni versity of B 00:00:00 [facility] Heamophilus Influenza 2015-11-13 Completed Uni versity of B 00:00:00 [facility] Meningococcal 2015-11-12 Completed University of [...] Meningococcal 2015-11-12 Completed [facility] of Polysaccharide 00:00:00 [facility] (groups A, C, Y and Branc h W-135) conjugate vaccine (MCV4P) Meningococcal 2015-11-12 Completed University of Polysaccharide 00:00:00 [facility] (groups A, C, Y and Branc h W-135) conjugate vaccine (MCV4P) TDAP 2015-10-31 Completed University of 00:00:00 [facility] TDAP 2015-10-31 Completed University of 00:00:00 [facility] TDAP 2015-10-31 Completed University of 00:00:00 [facility] TDAP 2015-10-31 Completed University of 00:00:00 [facility] TDAP 2015-10-31 Completed University of 00:00:00 [facility] TDAP 2015-10-31 Completed University of 00:00:00 [facility] TDAP 2015-10-31 Completed University of 00:00:00 [facility] TDAP 2015-10-31 Completed University of 00:00:00 [facility] TDAP 2015-10-31 Completed University of 00:00:00 [facility] TDAP 2015-10-31 Completed University of 00:00:00 [facility] TDAP 2015-10-31 Completed University of 00:00:00 [facility] TDAP 2015-10-31 Completed University of 00:00:00 [facility] TDAP 2015-10-31 Completed University of 00:00:00 [facility] TDAP 2015-10-31 Completed University of 00:00:00 [facility] TDAP 2015-10-31 Completed University of 00:00:00 [facility] TDAP 2015-10-31 Completed University of 00:00:00 [facility] TDAP 2015-10-31 Completed University of 00:00:00 [facility] TDAP 2015-10-31 Completed University of 00:00:00 [facility] TDAP 2015-10-31 Completed University of 00:00:00 [facility] TDAP 2015-10-31 Completed University of 00:00:00 [facility] TDAP 2015-10-31 Completed University of 00:00:00 [facility] TDAP 2015-10-31 Completed University of 00:00:00 [facility] TDAP 2015-10-31 Completed University of 00:00:00 [facility] TDAP 2015-10-31 Completed University of 00:00:00 [facility] TDAP 2015-10-31 Completed University of 00:00:00 [facility] TDAP 2015-10-31 Completed University of 00:00:00 [facility] TDAP 2015-10-31 Completed University of 00:00:00 [facility] TDAP 2015-10-31 Completed University of 00:00:00 [facility] TDAP 2015-10-31 Completed University of 00:00:00 [facility] TDAP 2015-10-31 Completed University of 00:00:00 [facility] TDAP 2015-10-31 Completed University of 00:00:00 [facility] TDAP 2015-10-31 Completed University of 00:00:00 [facility] TDAP 2015-10-31 Completed University of 00:00:00 [facility] TDAP 2015-10-31 Completed University of 00:00:00 [facility] TDAP 2015-10-31 Completed University of 00:00:00 [facility] TDAP 2015-10-31 Completed University of 00:00:00 [facility] TDAP 2015-10-31 Completed University of 00:00:00 [facility] TDAP 2015-10-31 Completed University of 00:00:00 [facility] TDAP 2015-10-31 Completed University of 00:00:00 [facility] TDAP 2015-10-31 Completed University of 00:00:00 [facility] TDAP 2015-10-31 Completed University of 00:00:00 [facility] TDAP 2015-10-31 Completed University of 00:00:00 [facility] TDAP 2015-10-31 Completed University of 00:00:00 [facility] TDAP 2015-10-31 Completed University of 00:00:00 [facility] TDAP 2015-10-31 Completed University of 00:00:00 [facility] TDAP 2015-10-31 Completed University of 00:00:00 [facility] TDAP 2015-10-31 Completed University of 00:00:00 [facility] TDAP 2015-10-31 Completed University of 00:00:00 [facility] TDAP 2015-10-31 Completed University of 00:00:00 [facility] TDAP 2015-10-31 Completed University of 00:00:00 [facility] TDAP 2015-10-31 Completed University of 00:00:00 [facility] TDAP 2015-10-31 Completed University of 00:00:00 [facility] TDAP 2015-10-31 Completed University of 00:00:00 [facility] TDAP 2015-10-31 Completed University of 00:00:00 [facility] TDAP 2015-10-31 Completed University of 00:00:00 [facility] TDAP 2015-10-31 Completed University of 00:00:00 [facility] TDAP 2015-10-31 Completed University of 00:00:00 [facility] TDAP 2015-10-31 Completed University of 00:00:00 [facility] TDAP 2015-10-31 Completed University of 00:00:00 [facility] TDAP 2015-10-31 Completed University of 00:00:00 [facility] TDAP 2015-10-31 Completed University of 00:00:00 [facility] TDAP 2015-10-31 Completed University of 00:00:00 [facility] TDAP 2015-10-31 Completed University of 00:00:00 [facility] TDAP 2015-10-31 Completed University of 00:00:00 [facility] TDAP 2015-10-31 Completed University of 00:00:00 [facility] TDAP 2015-10-31 Completed University of 00:00:00 [facility] TDAP 2015-10-31 Completed University of 00:00:00 [facility] TDAP 2015-10-31 Completed University of 00:00:00 [facility] TDAP 2015-10-31 Completed University of 00:00:00 [facility] TDAP 2015-10-31 Completed University of 00:00:00 [facility] TDAP 2015-10-31 Completed University of 00:00:00 [facility] TDAP 2015-10-31 Completed University of 00:00:00 [facility] TDAP 2015-10-31 Completed University of 00:00:00 [facility] TDAP 2015-10-31 Completed University of 00:00:00 [facility] TDAP 2015-10-31 Completed University of 00:00:00 [facility] TDAP 2015-10-31 Completed University of 00:00:00 [facility] TDAP 2015-10-31 Completed University of 00:00:00 [facility] TDAP 2015-10-31 Completed University of 00:00:00 [facility] TDAP 2015-10-31 Completed University of 00:00:00 [facility] TDAP 2015-10-31 Completed University of 00:00:00 [facility] TDAP 2015-10-31 Completed University of 00:00:00 [facility] TDAP 2015-10-31 Completed University of 00:00:00 [facility] TDAP 2015-10-31 Completed University of 00:00:00 [facility] TDAP 2015-10-31 Completed University of 00:00:00 [facility] TDAP 2015-10-31 Completed University of 00:00:00 [facility] TDAP 2015-10-31 Completed University of 00:00:00 [facility] TDAP 2015-10-31 Completed University of 00:00:00 [facility] TDAP 2015-10-31 Completed University of 00:00:00 [facility] TDAP 2015-10-31 Completed University of 00:00:00 [facility] TDAP 2015-10-31 Completed University of 00:00:00 [facility] TDAP 2015-10-31 Completed University of 00:00:00 [facility] TDAP 2015-10-31 Completed University of 00:00:00 [facility] TDAP 2015-10-31 Completed University of 00:00:00 [facility] TDAP 2015-10-31 Completed University of 00:00:00 [facility] TDAP 2015-10-31 Completed University of 00:00:00 [facility] TDAP 2015-10-31 Completed University of 00:00:00 [facility] TDAP 2015-10-31 Completed University of 00:00:00 [facility] TDAP 2015-10-31 Completed University of 00:00:00 [facility] TDAP 2015-10-31 Completed University of 00:00:00 [facility] TDAP 2015-10-31 Completed University of 00:00:00 [facility] TDAP 2015-10-31 Completed University of 00:00:00 [facility] TDAP 2015-10-31 Completed University of 00:00:00 [facility] TDAP 2015-10-31 Completed University of 00:00:00 [facility] TDAP 2015-10-31 Completed University of 00:00:00 [facility] TDAP 2015-10-31 Completed University of 00:00:00 [facility] TDAP 2015-10-31 Completed University of 00:00:00 [facility] TDAP 2015-10-31 Completed University of 00:00:00 [facility] TDAP 2015-10-31 Completed University of 00:00:00 [facility] Pneumococcal 2014-04-01 Completed University o f [...] Source Heart rate 2022-10-29 21:30:00 91 /min [facility] Respiratory rate 2022-10-29 21:30:00 14 /min [facility] Oxygen saturation in 2022-10-29 21:30:00 98 /min University of Arterial blood by [facility] Pulse oximetry Branch Systolic blood 2022-10-29 20:21:00 125 mm[Hg] Univer sity of pressure [facility] Diastolic blood 2022-10-29 20:21:00 79 mm[Hg] Unive rsity of pressure [facility] Body temperature 2022-10-29 20:21:00 36.89 Melissa Univ ersity of [facility] Body height 2022-10-29 20:21:00 157.5 cm [facility]i ty of [facility] Body weight 2022-10-29 20:21:00 94.348 kg [facility] of [facility] BMI 2022-10-29 20:21:00 38.04 kg/m2 [facility] Systolic blood 2022-10-27 15:21:00 91 mm[Hg] Univer sity of pressure [facility] Diastolic blood 2022-10-27 15:21:00 58 mm[Hg] Unive rsity of [facility] Heart rate 2022-10-27 15:21:00 82 /min [facility] Body height 2022-10-27 15:21:00 157.5 cm [facility] Body weight 2022-10-27 15:21:00 94.394 kg [facility] BMI 2022-10-27 15:21:00 38.06 kg/m2 Universi ty of [facility] Oxygen saturation in 2022-10-27 15:21:00 95 /min University of Arterial blood by [facility] Pulse oximetry Branch HEIGHT 2022-10-22 05:49:00 157.5 cm WEIGHT 2022-10-22 05:49:00 96.48 kg HEIGHT 2022-10-22 05:49:00 157.5 cm WEIGHT 2022-10-22 05:49:00 96.48 kg HEIGHT 2022-10-22 05:49:00 157.5 cm WEIGHT 2022-10-22 05:49:00 96.48 kg Systolic blood 2022-10-19 21:30:00 148 mm[Hg] Univer sity of pressure [facility] Diastolic blood 2022-10-19 21:30:00 89 mm[Hg] Unive rsity of pressure [facility] Heart rate 2022-10-19 21:30:00 115 /min [facility] Body temperature 2022-10-19 21:30:00 37.17 Melissa Univ ers[facility] of [facility] Respiratory rate 2022-10-19 21:30:00 16 /min Univ ersity of [facility] Oxygen saturation in 2022-10-19 21:30:00 97 /min [facility] Arterial blood by [facility] Pulse oximetry Branch Body height 2022-10-19 04:03:00 172.7 cm [facility] Body weight 2022-10-19 04:03:00 98.884 kg [facility] BMI 2022-10-19 04:03:00 33.15 kg/m2 [facility] Systolic blood 2022-10-18 16:13:00 102 mm[Hg] Univer sity of pressure [facility] Diastolic blood 2022-10-18 16:13:00 69 mm[Hg] Unive rsity of pressure [facility] Heart rate 2022-10-18 16:13:00 82 /min [facility]i [facility] of [facility] Body height 2022-10-18 16:13:00 157.5 cm [facility] Body weight 2022-10-18 16:13:00 98.884 kg [facility] BMI 2022-10-18 16:13:00 39.87 kg/m2 [facility] Oxygen saturation in 2022-10-18 16:13:00 99 /min [facility] Arterial blood by [facility] Pulse oximetry Branch Systolic blood 2022-10-07 19:00:00 125 mm[Hg] Univer sity of pressure [facility] Diastolic blood 2022-10-07 19:00:00 78 mm[Hg] Unive rsity of pressure [facility] Heart rate 2022-10-07 19:00:00 85 /min [facility] Respiratory rate 2022-10-07 19:00:00 18 /min Univ ersity of [facility] Oxygen saturation in 2022-10-07 19:00:00 100 /min [facility] of Arterial blood by [employer] [facility] Pulse oximetry Branch Body temperature 2022-10-07 17:09:00 37.28 Melissa Univ ersity of [facility] Body height 2022-10-07 17:09:00 157.5 cm [facility] Body weight 2022-10-07 17:09:00 102.059 kg [facility] BMI 2022-10-07 17:09:00 41.15 kg/m2 [facility] Systolic blood 2022-10-07 14:03:00 119 mm[Hg] Univer sity of pressure [facility] Diastolic blood 2022-10-07 14:03:00 81 mm[Hg] Unive rsity of pressure [facility] Heart rate 2022-10-07 14:03:00 104 /min [facility] Body temperature 2022-10-07 14:03:00 36.28 Melissa Univ ers[facility] Body height 2022-10-07 14:03:00 157.5 cm [facility] Body weight 2022-10-07 14:03:00 102.377 kg [facility] BMI 2022-10-07 14:03:00 41.28 kg/m2 [facility] Oxygen saturation in 2022-10-07 14:03:00 100 /min [facility] Arterial blood by [place] [facility] Pulse oximetry Branch Systolic blood 2022-09-03 17:29:00 97 mm[Hg] Univer [facility]ity of [facility] Diastolic blood 2022-09-03 17:29:00 64 mm[Hg] Unive rs[facility] Heart rate 2022-09-03 17:29:00 95 /min [facility] Body temperature 2022-09-03 17:29:00 37.17 Meilssa [facility] Body height 2022-09-03 17:29:00 157.5 cm [facility] Body weight 2022-09-03 17:29:00 101.606 kg [facility] BMI 2022-09-03 17:29:00 40.97 kg/m2 [facility] Oxygen saturation in 2022-09-03 17:29:00 96 /min [facility] of Arterial blood by [place] [facility] Pulse oximetry Branch Systolic blood 2022-08-24 14:41:00 115 mm[Hg] [facility] Diastolic blood 2022-08-24 14:41:00 77 mm[Hg] Unive rsity of [facility] Heart rate 2022-08-24 14:41:00 105 /min [facility] Body temperature 2022-08-24 14:41:00 36.61 Melissa [facility] Body weight 2022-08-24 14:41:00 102.967 kg [facility] BMI 2022-08-24 14:41:00 41.52 kg/m2 [facility] Systolic blood 2022-07-27 13:03:00 112 mm[Hg] [facility] Diastolic blood 2022-07-27 13:03:00 75 mm[Hg] Unive [facility] Heart rate 2022-07-27 13:03:00 98 /min [facility] Body temperature 2022-07-27 13:03:00 36.83 Melissa [facility] Body weight 2022-07-27 13:03:00 102.967 kg [facility] BMI 2022-07-27 13:03:00 41.52 kg/m2 [facility] Oxygen saturation in 2022-07-27 13:03:00 94 /min University of Arterial blood by [place] [facility] Pulse oximetry Branch Systolic blood 2022-06-17 15:45:00 104 mm[Hg] [facility] Diastolic blood 2022-06-17 15:45:00 69 mm[Hg] Unive rs[facility] Heart rate 2022-06-17 15:45:00 97 /min [facility] Body height 2022-06-17 15:45:00 157.5 cm [facility] Body weight 2022-06-17 15:45:00 101.878 kg [facility] BMI 2022-06-17 15:45:00 41.08 kg/m2 [facility] Oxygen saturation in 2022-06-17 15:45:00 98 /min University of Arterial blood by [facility] Pulse oximetry Branch Systolic blood 2022-06-15 13:01:00 101 mm[Hg] [facility]iver [facility] Diastolic blood 2022-06-15 13:01:00 68 mm[Hg] Unive rs[facility] Heart rate 2022-06-15 13:01:00 74 /min [facility] Body temperature 2022-06-15 13:01:00 36.89 Melissa [facility] Body weight 2022-06-15 13:01:00 102.967 kg [facility] BMI 2022-06-15 13:01:00 41.52 kg/m2 [facility] Systolic blood 2022-03-27 12:44:00 131 mm[Hg] [facility] Diastolic blood 2022-03-27 12:44:00 83 mm[Hg] [facility]ive [facility] Heart rate 2022-03-27 12:44:00 102 /min [facility] Body temperature 2022-03-27 12:44:00 37.11 Melissa [facility] Respiratory rate 2022-03-27 12:44:00 18 /min [facility] Body height 2022-03-27 12:44:00 157.5 cm [facility] Body weight 2022-03-27 12:44:00 96.616 kg [facility] BMI 2022-03-27 12:44:00 38.96 kg/m2 [facility] Oxygen saturation in 2022-03-27 12:44:00 98 /min [facility] of Arterial blood by [facility] Pulse oximetry Branch Systolic blood 2022-03-02 15:40:00 113 mm[Hg] [facility] Diastolic blood 2022-03-02 15:40:00 72 mm[Hg] [facility] Heart rate 2022-03-02 15:40:00 82 /min [facility] Respiratory rate 2022-03-02 15:40:00 16 /min [facility] Oxygen saturation in 2022-03-02 15:40:00 97 /min University of Arterial blood by [facility] Pulse oximetry Branch Body temperature 2022-03-02 15:23:00 36.28 Melissa [facility] Body weight 2022-02-24 17:00:00 100.245 kg Universi ty [facility] BMI 2022-02-24 17:00:00 40.42 kg/m2 Universi ty [facility] Systolic blood 2022-03-02 15:25:00 98 mm[Hg] Univer sity of pressure [facility] Diastolic blood 2022-03-02 15:25:00 55 mm[Hg] Unive rsity of [facility] Heart rate 2022-03-02 15:25:00 85 /min Universi ty [facility] Respiratory rate 2022-03-02 15:25:00 18 /min Univ [facility] Oxygen saturation in 2022-03-02 15:25:00 100 /min [facility] Arterial blood by [facility] Pulse oximetry Branch Body temperature 2022-03-02 15:23:00 36.28 Melissa [facility] Body weight 2022-02-24 17:00:00 100.245 kg Universi ty [facility] BMI 2022-02-24 17:00:00 40.42 kg/m2 [facility] Systolic blood 2022-10-25 10:57:00 120 mm[Hg] [facility] Diastolic blood 2022-10-25 10:57:00 63 mm[Hg] [facility] S [facility] Heart rate 2022-10-25 10:57:00 92 /min [facility] Body temperature 2022-10-25 10:57:00 35.61 Melissa [facility] Respiratory rate 2022-10-25 10:57:00 18 /min [facility] Oxygen saturation in 2022-10-25 10:57:00 100 /min [facility] Arterial blood by Medical nter Pulse oximetry Body height 2022-10-22 05:49:00 157.5 cm [facility] Body weight 2022-10-22 05:49:00 96.48 kg [facility] BMI 2022-10-22 05:49:00 38.90 kg/m2 [facility] Procedures Procedure Date / Time Performing Source Performed Clinician HB ABO GROUPING 2022-10-29 Shena Perea Dania of 20:53:00 [facility] COMP. METABOLIC PANEL (87118) 2022-10-29 Shena Perea U niversity of 20:52:00 [facility] CBC WITH DIFF 2022-10-29 Brit [facility] of 20:52:00 [facility] CONSENT/REFUSAL FOR DIAGNOSIS AND 2022-10-29 [facility] 20:01:41 Unassigned, No [facility] BASIC METABOLIC PANEL$W/EGFR-Q 2022-10-27 Osmar Araujo U niversity of 16:36:00 [facility] POCT-GLUCOSE METER 2022-10-25 Ali, Hiba Tereso [facility] 11:05:00 [facility] POCT-GLUCOSE METER 2022-10-25 Ali, Hiba Tereso [facility] 07:47:00 [facility] BASIC METABOLIC PANEL 2022-10-25 Nalam, Livia Beth [facility] 03:35:00 [facility] MAGNESIUM 2022-10-25 Nalam, Livia Beth [facility] 03:35:00 [facility] CBC W/PLT COUNT & AUTO 2022-10-25 Nalam, Livia Beth [facility] DIFFERENTIAL 03:35:00 [facility] RETICULOCYTE COUNT 2022-10-25 Eziokwu, Akaolisa [facility] 03:35:00 [facility] LACTATE DEHYDROGENASE (LDH) 2022-10-25 Eziokwu[facility]isa [facility] 03:35:00 [facility] HAPTOGLOBIN 2022-10-25 Nalam, Livia Beth [facility] 03:35:00 [facility] HEPATIC FUNCTION PANEL 2022-10-25 Nalam, Livia Beth [facility] 03:35:00 [facility] CBC W/PLT COUNT & AUTO 2022-10-25 Nalam, Livia Beth [facility] DIFFERENTIAL 03:35:00 [facility] POCT-GLUCOSE METER 2022-10-24 Ali, Hiba Tereso [facility] 23:11:00 [facility] POCT-GLUCOSE METER 2022-10-24 Ali, Hiba Tereso [facility] 17:33:00 [facility] POCT-GLUCOSE METER 2022-10-24 Ali, Hiba Tereso [facility] 11:39:00 [facility] POCT-GLUCOSE METER 2022-10-24 Ali, Hiba Tereso [facility] 07:36:00 [facility] BASIC METABOLIC PANEL 2022-10-24 Nalam, Livia Beth [facility] 03:12:00 [facility] MAGNESIUM 2022-10-24 Nalam, Livia Beth [facility] 03:12:00 [facility] CBC W/PLT COUNT & AUTO 2022-10-24 Nalam, Livia Beth [facility] DIFFERENTIAL 03:12:00 [facility] RETICULOCYTE COUNT 2022-10-24 Eziokwu, A[facility]olisa [facility] 03:12:00 [facility] LACTATE DEHYDROGENASE (LDH) 2022-10-24 Eziokwu, [facility]olisa [facility] 03:12:00 [facility] C-REACTIVE PROTEIN 2022-10-24 Nalam, Livia Beth [facility] 03:12:00 [facility] HAPTOGLOBIN 2022-10-24 Nalam, Livia Beth [facility] 03:12:00 [facility] HEPATIC FUNCTION PANEL 2022-10-24 Nalam, Livia Beth [facility] 03:12:00 [facility] CBC W/PLT COUNT & AUTO 2022-10-24 Nalam, Livia Beth [facility] DIFFERENTIAL 03:12:00 [facility] POCT-GLUCOSE METER 2022-10-23 Ali, Hiba Tereso [facility] 21:50:00 [facility] POCT-GLUCOSE METER 2022-10-23 Ali, Hiba Tereso [facility] 17:24:00 [facility] ANTIBODY IDENTIFICATION 2022-10-23 Nalam, Livia Beth [facility] 12:29:00 [facility] POCT-GLUCOSE METER 2022-10-23 Ali, Hiba Tereso [facility] 12:20:00 [facility] POCT-GLUCOSE METER 2022-10-23 Ali, Hiba Tereso [facility] 09:26:00 [facility] BASIC METABOLIC PANEL 2022-10-23 Nalam, Livia Beth [facility] 04:28:00 [facility] MAGNESIUM 2022-10-23 Nalam, Livia Beth [facility] 04:28:00 [facility] CBC W/PLT COUNT & AUTO 2022-10-23 Nalam, Livia Beth [facility] DIFFERENTIAL 04:28:00 [facility] RETICULOCYTE COUNT 2022-10-23 Eziokwu, Akaolisa [facility] 04:28:00 [facility] LACTATE DEHYDROGENASE (LDH) 2022-10-23 Eziokwu, [facility]olisa [facility] 04:28:00 [facility] C-REACTIVE PROTEIN 2022-10-23 Nalam, Livia Beth [facility] 04:28:00 [facility] FERRITIN 2022-10-23 Nalam, Livia Beth [facility] 04:28:00 [facility] HAPTOGLOBIN 2022-10-23 Nalam, Livia Beth [facility] 04:28:00 [facility] HEPATIC FUNCTION PANEL 2022-10-23 Nalam, Livia Beth [facility] 04:28:00 [facility] HEMOGLOBIN A1C 2022-10-23 Nalam, Livia Beth [facility] 04:28:00 [facility] CBC W/PLT COUNT & AUTO 2022-10-23 Nalam, Livia Beth [facility] DIFFERENTIAL 04:28:00 [facility] ABORH, MANUAL 2022-10-[address] [facility] 02:02:00 [facility] POCT-GLUCOSE METER 2022-10-22 Nalam, Livia Beth [facility] 22:41:00 [facility] XR ABDOMEN/KUB 1 VIEW PORTABLE 2022-10-22 Nalam, Livia Beth [facility] 17:23:00 [facility] D-DIMER 2022-10-22 Nalam, Livia Beth [facility] 16:29:00 [facility] CBC W/PLT COUNT & AUTO 2022-10-22 Nalam, Livia Beth [facility] DIFFERENTIAL 11:33:00 [facility] RETICULOCYTE COUNT 2022-10-22 Nalam, Livia Beth [facility] 11:33:00 [facility] PERIPHERAL BLOOD SMEAR - HOLD ONLY 2022-10-22 Nalam, Livia Beth [facility] 11:33:00 [facility] Center DIRECT AHG (ARNOLD)/DIRECT SONDRA 2022-10-22 Nalam, Livia Beth [facility] 11:33:00 [facility] Center TYPE AND SCREEN, AUTOMATED 2022-10-22 Nalam, Livia Beth [facility] 11:33:00 [facility] CBC W/PLT COUNT & AUTO 2022-10-22 Nalam, Livia Beth [facility] DIFFERENTIAL 11:33:00 [facility] COMPREHENSIVE METABOLIC PANEL 2022-10-22 Nalam, Livia Beth [facility] 11:32:00 [facility] MAGNESIUM 2022-10-22 Nalam, Livia Beth [facility] 11:32:00 [facility] LACTATE DEHYDROGENASE (LDH) 2022-10-22 Nalam, Livia Beth [facility] 11:32:00 [facility] BILIRUBIN, DIRECT 2022-10-22 Nalam, Livia Beth [facility] 11:32:00 [facility] IRON, TIBC, % SAT. (WITHOUT 2022-10-22 Nalam, Livia Beth [facility] FERRITIN) 11:32:00 [facility] FERRITIN 2022-10-22 Nalam, Livia Beth [facility] 11:32:00 [facility] VITAMIN B12 2022-10-22 Nalam, Livia Beth [facility] 11:32:00 [facility] HAPTOGLOBIN 2022-10-22 Nalam, Livia Beth [facility] 11:32:00 [facility] FIBRINOGEN 2022-10-22 Nalam, Livia Beth [facility] 11:31:00 [facility] PT/APTT 2022-10-22 Nalam, Livia Beth [facility] 11:31:00 [facility] EKG-SCANNED 2022-10-22 Provider, Default [facility] 00:00:00 Scanning [facility] COMP. METABOLIC PANEL (62640) 2022-10-19 Tina Curtis Un iversity of 11:22:00 [facility] GIARDIA CRYPTOSPORIDIUM AG SCR 2022-10-19 Tina Curtis U niversity of 05:09:00 [facility] FECAL PATHOGENS BY PCR 2022-10-19 Tina Curtis Universit y of 05:09:00 [facility] CT ABDOMEN PELVIS W CONTRAST 2022-10-18 [facility] U niversity of 23:00:00 [facility] POCT TEST 2022-10-18 [facility] of 22:15:00 F [facility] LIPASE 2022-10-18 [facility] of 22:08:00 [facility] FREE T4 2022-10-18 [facility] of 22:08:00 [facility] THYROID STIMULATING HORMONE 2022-10-18 [facility] ersity of 22:08:00 [facility] COMP. METABOLIC PANEL ([id number]) 2022-10-18 [facility] of 22:08:00 [facility] CBC WITH DIFF 2022-10-18 [facility] 22:08:00 [facility] URINALYSIS 2022-10-18 [facility] 22:08:00 [facility] CONSENT/REFUSAL FOR DIAGNOSIS AND 2022-10-18 [facility] of TREATMENT 20:52:07 Unassigned, No [facility] URINE CULTURE 2022-10-18 [facility] 17:46:00 [facility] BASIC METABOLIC PANEL (NA, K, CL, 2022-10-18 [facility] CO2, GLUCOSE, BUN, CREATININE, CA) 17:24:00 [facility] POCT URINALYSIS AUTO 2022-10-18 [facility] 16:15:00 [facility] DISCLOSURE AND CONSENT, MEDICAL 2022-10-18 [facility] of AND SURGICAL PROCEDURES 06:01:00 Unassigned, No [facility] HOSPITAL ADMISSION 2022-10-18 [facility] of 06:01:00 Unassigned, No [facility] LACTIC ACID WHOLE BLOOD 2022-10-07 Destiny Oneill [facility] of 18:28:00 [facility] LIPASE 2022-10-07 Destiny Oneill [facility] of 18:16:00 [facility] COMP. METABOLIC PANEL ([id number]) 2022-10-07 Destiny Oneill iversity of 18:16:00 [facility] CBC WITH DIFF 2022-10-07 Nino Destiny [facility]ia of 18:16:00 [facility] URINALYSIS 2022-10-07 [facility] of 18:16:00 [facility] CONSENT/REFUSAL FOR DIAGNOSIS AND 2022-10-07 [facility] 16:58:17 Unassigned, No [facility] POCT HEMOGLOBIN A1C TEST 2022-08-24 Tray Jolly [facility] ity of 00:00:00 [facility] DME/SUPPLY JUSTIFICATION 2022-08-05 Doctor [facility] ity of 06:01:00 Unassigned, No [facility] SARS-COV-2 COVID-19 CHRISTELLE-SUCROSE 2022-07-27 Tray Jolly Dania of VACCINE 12 YRS+, BIVALENT 0.3ML, 13:13:29 [facility], (P[employer]ER) Br anch MEDICATION CORRESPONDENCE 2022-07-19 Doctor [facility] sit of 05:01:00 Unassigned, No [facility] DISABILITY/FMLA 2022-07-01 [facility] 05:01:00 Unassigned, No [facility] MR THORACIC SPINE WO CONTRAST 2022-06-30 Stella Worley Un iversity of 16:22:01 [facility] MR CERVICAL SPINE WO CONTRAST 2022-06-30 Brunilda, Stella Un iversity of 16:20:35 [facility] CONSENT/REFUSAL FOR DIAGNOSIS AND 2022-06-30 [facility] 14:32:21 Unassigned, No [facility] CONSENT/REFUSAL FOR DIAGNOSIS AND 2022-06-30 [facility] 14:32:20 Unassigned, No [facility] INSURANCE CORRESPONDENCE 2022-06-17 Doctor [facility] ity of 05:01:00 Unassigned, No [facility] POWER OF ENTRY LEVEL ADMINISTRATIVE ASSISTANT 2022-06-01 [facility] of 05:01:00 Unassigned, No [facility] POWER OF ENTRY LEVEL ADMINISTRATIVE ASSISTANT 2022-05-13 [facility] of 05:01:00 Unassigned, No [facility] DME/SUPPLY JUSTIFICATION 2022-05-06 Doctor [facility] ity of 05:01:00 Unassigned, No [facility] EMG/NCV 2022-04-08 Stella Worley Dania of 14:43:00 [facility] CONSENT/REFUSAL FOR DIAGNOSIS AND 2022-03-27 [facility] of TREATMENT 12:40:53 Unassigned, No [facility] PHYSICIAN ORDERS 2022-03-19 [facility] of 05:01:00 Unassigned, No [facility] COLONOSCOPY (ENDO) 2022-03-02 Rik [facility] of 14:43:32 [facility] COLONOSCOPY (ENDO) 2022-03-02 [facility] of 14:43:32 [facility] COLONOSCOPY 2022-03-02 [facility] of 14:02:00 [facility] ESOPHAGOGASTRODUODENOSCOPY 2022-03-02 [facility] ersity of 14:02:00 [facility] EGD (ENDO) 2022-03-02 [facility] of 13:53:24 [facility] EGD (ENDO) 2022-03-02 [facility] of 13:53:24 [facility] POCT GLUCOSE(AGE >30DAYS) 2022-03-02 [facility] ersity of 12:59:00 [facility] POCT GLUCOSE(AGE >30DAYS) 2022-03-02 [facility] ersity of 12:59:00 [facility] POCT GLUCOSE (AUTOMATED) 2022-03-02 [facility] sity of 12:58:00 [facility] POCT GLUCOSE (AUTOMATED) 2022-03-02 [facility] sity of 12:58:00 [facility] POCT TEST 2022-03-02 [facility] of 12:48:00 [facility] POCT TEST 2022-03-02 [facility] of 12:48:00 [facility] DAY SURGERY - ADC 2022-03-02 [facility] of 05:01:00 Unassigned, No [facility] DME/SUPPLY JUSTIFICATION 2022-01-04 Doctor [facility] ity of 05:01:00 Unassigned, No [facility] DME/SUPPLY JUSTIFICATION 2022-01-04 Doctor [facility] ity of 05:01:00 Unassigned, No [facility] DISCLOSURE AND CONSENT, MEDICAL 2021-12-28 [facility] of AND SURGICAL PROCEDURES 05:01:00 Unassigned, No [place] [facility] DISCLOSURE AND CONSENT, MEDICAL 2021-12-28 [facility] of AND SURGICAL PROCEDURES 05:01:00 Unassigned, No [facility] dical Name Branch Plan of Care Planned Activity Planned Date Details Comments Source Future Scheduled 2032-03-02 Screening for malignant [facility] Test 00:00:00 neoplasm of colon Medical Ce nter (procedure) [code = 323255138] Future Scheduled 2032-03-02 Screening for malignant [facility] Test 00:00:00 neoplasm of colon Medical Ce nter (procedure) [code = 126819639] Future Scheduled 2032-03-02 Screening for malignant [facility] Test 00:00:00 neoplasm of colon Medical Ce nter (procedure) [code = 328764119] Future Scheduled 2032-03-02 Screening for malignant [facility] Test 00:00:00 neoplasm of colon Medical Ce nter (procedure) [code = 791869238] Future Scheduled 2032-03-02 Screening for malignant [facility] Test 00:00:00 neoplasm of colon Medical Ce nter (procedure) [code = 319054886] Future Scheduled 2032-03-02 Screening for malignant [facility] Test 00:00:00 neoplasm of colon Medical Ce nter (procedure) [code = 289493094] Future Scheduled 2029-08-10 DTAP/TDAP/TD VACCINES CH I [...] [facility] Test 00:00:00 [code = 68988204] Medical Ce nter Future Scheduled 2018 Lipid panel (procedure) [facility] Test 00:00:00 [code = 81726783] Medical Ce nter Future Scheduled 2018 Lipid panel (procedure) [facility] Test 00:00:00 [code = 67713158] Medical Ce nter Future Scheduled 1994 Screening for malignant [facility] Test 00:00:00 neoplasm of cervix Medical C enter (procedure) [code = 755537848] Future Scheduled 1994 Screening for malignant [facility] Test 00:00:00 neoplasm of cervix Medical C enter (procedure) [code = 729599540] Future Scheduled 1994 Screening for malignant [facility] Test 00:00:00 neoplasm of cervix Medical C enter (procedure) [code = 069383902] Future Scheduled 1991 HEPATITIS C SCREENING CH [...] colon Medical Ce nter (procedure) [code = 974628894] Future Scheduled 1973 Screening for malignant [facility] Test 00:00:00 neoplasm of colon Medical Ce nter (procedure) [code = 793141581] Future Scheduled 1973 Sigmoidoscopy [code = [facility] S[facility]oscopy] Medical Cente r Future Scheduled 1973 CT Colonography (combo) [facility] Test 00:00:00 [code = CT Colonography [facility] (combo)] Future Scheduled 1973 Screening for malignant [facility] Test 00:00:00 neoplasm of colon Medical Ce nter (procedure) [code = 028508296] Future Scheduled 1973 Screening for malignant [facility] Test 00:00:00 neoplasm of colon Medical Ce nter (procedure) [code = 698045858] Future Scheduled 1973 Sigmoidoscopy [facility]code [facility] Sigmoidoscopy] Medical Cente r Future Scheduled 1973 CT Colonography (combo) [facility] Test 00:00:00 [code = CT Colonography [facility] (combo)] Future Scheduled 1973 Screening for malignant [facility] Test 00:00:00 neoplasm of colon Medical Ce nter (procedure) [code = 945523303] Future Scheduled 1973 Screening for malignant [facility] Test 00:00:00 neoplasm of colon Medical Ce nter (procedure) [code = 736436010] Future Scheduled 1973 Sigmoidoscopy [code [facility] 00:[facility] Sigmoidoscopy] Medical Cente r Encounters Start End Encounter Admission Attending Care Care Encounter Source Date/Time Date/Time Type Type Clinicians Facility Department ID 2022-02-16 Outpatient R IVETT MÁRQUEZ [id number] Univers 10:29:45 CECILE flores [facility] 2021-12-01 Outpatient R WILLI [facility] MARCUS [id number] Univers 13:05:09 CECILE flores [facility] 2021-11-04 Outpatient R WILLI [facility] MARCUS [id number] Univers 15:43:22 CECILE ity [facility] 2021-07-27 Emergency [facility] [id number] Univers 19:11:28 ity of [facility] 2021-07-27 Emergency [facility] [id number] Univers 10:12:30 ity of [facility] 2021-07-27 Emergency [facility] [id number] Univers 06:35:13 ity of [facility] 2021-07-27 Emergency [facility] [id number] Univers 04:01:19 ity of [facility] 2021-07-26 Emergency [facility] [id number] Univers 12:06:22 ity of [facility] 2021-07-26 Emergency [facility] [id number] Univers 11:43:46 ity [facility] 2023-02-22 2023-02-22 Outpatient R RIK [facility] [id number] Univers 09:15:00 09:15:00 TRAY flores [facility] 2022-11-24 2022-11-24 Outpatient R RIK [facility] [id number] Univers 09:45:00 09:45:00 TRAY flores [facility] 2022-11-18 2022-11-18 Outpatient NAV GIANG [facility] [id number] Univers 08:00:00 08:00:00 ity [facility] 2022-11-08 2022-11-08 Telephone [facility] 1.2.840.114 [id number] Univers 00:00:00 00:00:00 [facility] 350.1.13.10 it y of [place] 4.2.7.2.686 Emanuel as JOLLY?BLEA [phone] [address] MEDICAL OFFICE BUILDING 2022-11-04 2022-11-04 Telephone [facility] 1.2.840.114 [id number] Univers 00:00:00 00:00:00 [facility] 350.1.13.10 it y of [place] 4.2.7.2.686 Emanuel as JOLLY?BLEA [id number] Al gabi CHAIREZ [address] [place] [address] OFFICE [facility] 2022-11-01 2022-11-01 Outpatient R RIK [facility] [id number] Univers 14:30:00 14:30:00 TRAY itjay [facility] 2022-11-01 2022-11-01 Refill [facility] 1.2.840.114 [id number] Univers 00:00:00 00:00:00 [facility] 350.1.13.10 it y of [place] 4.2.7.2.686 Emanuel as JOLLY?BLEA [phone] Al gabi [address] 2022-10-29 2022-10-29 Emergency [facility] E[facility] [id number] Univers 14:24:00 16:45:00 SHENA flores [facility] 2022-10-29 2022-10-29 Emergency [facility] 1.2.840.114 [id number] Univers 14:24:00 16:45:00 Shena Tirso [facility] 350.1.13.10 it[facility] 4.2.7.2.686 [place] [facility] [id number] [address] 2022-10-29 2022-10-29 Telephone [facility] 1.2.375.614 [id number] Univers 00:00:00 00:00:00 Osmar HEALTH 350.1.13.10 it y of [place] 4.2.7.2.686 Emanuel as JOLLY?BLEA [phone] Al gabi CHAIREZ [address] [place] [address] OFFICE [facility] 2022-10-29 2022-10-29 Telephone [facility] 1.2.840.114 [id number] Univers 00:00:00 00:00:00 [facility] 350.1.13.10 it y of [place] 4.2.7.2.686 Emanuel as JOLLY?BLEA [phone] Al gabi [address] 2022-10-29 2022-10-29 Telephone [facility] 1.2.840.114 [id number] Univers 00:00:00 00:00:00 Tray HEALTH 350.1.13.10 it y of [place] 4.2.7.2.686 Emanule as JOLLY?BLEA [phone] [address] MEDICAL OFFICE [facility] 2022-10-28 2022-10-28 Telephone [facility] 1.2.089.134 [id number] Univers 00:00:00 00:00:00 Osmar HEALTH 350.1.13.10 it y of [place] 4.2.7.2.686 Emanuel as JOLLY?BLEA [id number] [address] OFFICE [facility] 2022-10-28 2022-10-28 Patient [facility] 1.2.840.114 [id number] Univers 00:00:00 00:00:00 Outreach Vik lFeming [facility] 350.1.13.10 i ty of [place] 4.2.7.2.686 [place] [facility] [id number] [facility] PRIMARY & [facility] SPECIALTY CARE 2022-10-27 2022-10-27 Outpatient R [facility] [id number] Univers 09:00:00 10:02:31 OSMAR phillipsjay [facility] 2022-10-27 2022-10-27 [facility] 1.2.840.114 [id number] Univers 09:00:00 10:02:31 Visit [facility] 350.1.13.10 it y of [place] 4.2.7.2.686 Emaunel as JOLLY?BLEA [id number] [address] MEDICAL OFFICE [facility] 2022-10-27 2022-10-27 Orders CLAU Araujo 1.2.840.114 [id number] Univers 00:00:00 00:00:00 Only Osmar MUJICAY 350.1.13.10 it y of [facility] 4.2.7.2.686 Emanuel as [id number] [place] [address] [place] 2022-10-26 2022-10-26 Telephone [facility] 1.2.460.455 [id number] Univers 00:00:00 00:00:00 Osmar HEALTH 350.1.13.10 it y of [place] 4.2.7.2.686 Emanuel as JOLLY?BLEA [id number] Al dicroshan [address] MEDICAL OFFICE BUILDING 2022-10-22 2022-10-25 Hospital [facility] [id number] [address] 05:22:00 14:24:00 Encounter Livia Brady ashkan [facility] 2022-10-22 2022-10-25 Hospital ER [facility] [id number] 05:22[facility]00 14:24:00 [facility] 2022-10-22 2022-10-25 Inpatient ER PANTERA NAVARRO [facility] Internal [id number] SLE 05:22:00 14:24:00 Med 2022-10-22 2022-10-22 Travel [facility] [id number] [facility] 00:00:00 [facility] 2022-10-22 2022-10-22 Travel [facility] [id number] [facility] 00:[facility] 00:00:00 [facility] 2022-10-21 2022-10-21 Outpatient Brock MÁRQUEZ [facility] [id number] Univers 15:45:00 15:45:00 CECILE flores [facility] 2022-10-21 2022-10-21 Telephone [facility] 1.2.840.114 [id number] Univers 00:00:00 00:00:00 [facility] 350.1.13.10 it y of [facility] 4.2.7.2.686 Emanuel as JOLLY?BLEA [phone] Al samir[address] MEDICAL OFFICE [facility] 2022-10-20 2022-10-20 Nurse CLAU Stark 1.2.840.114 [id number] Univers 00:00:00 00:00:00 Triage Kvng GALICIA 350.1.13.10 it y of [facility] 4.2.7.2.686 Emanuel as [id number] [address] 2022-10-18 2022-10-19 Emergency Kemal Myers 1.2. 840.114 [id number] Univers 15:07:00 17:48:00 Geovanny Willis 350.1.13.10 ity of [place] Vicki [facility] 4.2.7.2.686 [place] [id number] [facility] [address] 2022-10-19 2022-10-19 Refill [facility] 1.2.908.412 [id number] Univers 00:00:00 00:00:00 Vern PRIMARY 350.1.13.10 it y of [facility] 4.2.7.2.686 [place] [id number] Al dical [address] 2022-10-18 2022-10-18 Outpatient Brock CORNELIUS [facility] [id number] Univers 11:45:00 13:42:03 BEVERLY packer [facility] 2022-10-18 2022-10-18 Director Process Improvement 2, Adc Lab [facility] 1.2.840.114 [id number] Univers 11:45:00 13:42:03 Visit Beverly Cornelius 350.1.13. 10 ity of [place] 4.2.7.2.686 [place] [phone] Al dical NAL [address] [facility] 2022-10-18 2022-10-18 Outpatient Brock CORNELIUS [facility] [id number] [id number] Univers 11:00:00 11:14:47 BEVERLY packer [facility] 2022-10-18 2022-10-18 Office [facility] 1.2.840.114 [id number] Univers 11:00:00 11:14:47 Visit Beverly GREGORIO 350.1.13.10 ity of [facility] 4.2.7.2.686 [place] [phone] Al dical NAL 204 [facility] 2022-10-18 2022-10-18 Orders Doctor OLGUIN 1.2.840.114 [id number] Univers 00:00:00 00:00:00 Only Unassigned, GRAYSON 350.1.13.10 ity of [place] [facility] 4.2.7.2.686 Emanuel as [phone] [facility] [address] 2022-10-18 2022-10-18 [facility]phone [facility] 1.2.840.114 [id number] Univers 00:00:00 00:00:00 [facility] 350.1.13.10 it y of [place] 4.2.7.2.686 Emanuel as JOLLY?BLEA [phone] [address] OFFICE [facility] 2022-10-15 2022-10-15 Outpatient R [facility] [id number] Univers 10:45:00 11:31:42 LAYNE jay [facility] 2022-10-12 2022-10-12 Refill [facility] 1.2.840.114 [id number] Univers 00:00:00 00:00:00 [facility] 350.1.13.10 it y of [place] [facility] 4.2.7.2.686 Emanuel as JOLLY?BLEA [phone] [address] 2022-10-07 2022-10-07 Emergency X [facility] ERT [id number] Univers 11:11:00 13:18:00 DESTINY [facility] 2022-10-07 2022-10-07 Emergency [facility] 1.2.508.169 [id number] Univers 11:11:00 13:18:00 Destiny [place] 350.1.13.10 i ty of [place] 4.2.7.2.686 [place] [id number] [facility] [address] 2022-10-07 2022-10-07 Office [facility] 1.2.840.114 [id number] Univers 09:45:00 10:00:00 Visit [facility] 350.1.13.10 it y [facility] 4.2.7.2.686 Emanuel as JOLLY?BLEA [phone] [address] OFFICE [facility] 2022-10-07 2022-10-07 Outpatient R [facility] [id number] Univers 09:45:00 08:37:42 [facility] 2022-10-04 2022-10-04 [facility] 1.2.840.114 [id number] Univers 00:00:00 00:00:00 [facility] 350.1.13.10 it y of [place] [facility] 4.2.7.2.686 Emanuel as JOLLY?BLEA [id number] [address] OFFICE [facility] 2022-09-28 2022-09-28 Outpatient R [facility] [id number] Univers 08:00:00 08:00:00 TRAY [facility] 2022-09-10 2022-09-10 [facility] 1.2.840.114 [id number] Univers 00:00:00 00:00:00 [facility] 350.1.13.10 it y of [place] 4.2.7.2.686 Emanuel as JOLLY?BLEA [phone] [address] 2022-09-08 2022-09-08 [facility]phone [facility] 1.2.840.114 [id number] Univers 00:00:00 00:00:00 [facility] 350.1.13.10 it y of [place] 4.2.7.2.686 Emanuel as JOLLY?BLEA [phone] [address] 2022-09-08 2022-09-08 Nurse Delilah OLGUIN 1.2.840.114 [id number] Univers 00:00:00 00:00:00 Triage dMelony 350.1.13.10 ity of [facility] 4.2.7.2.686 Emanuel as [id number] [address] 2022-09-06 2022-09-06 Reffranchesca [facility] 1.2.840.114 [id number] Univers 00:00:00 00:00:00 Wondiful A HEALTH 350.1.13.10 ity of [facility] 4.2.7.2.686 Emanuel as JOLLY?BLEA [id number] [address] OFFICE [facility] 2022-09-06 2022-09-06 Susan Márquez [facility] 1.2.606.523 [id number] Univers 00:00:00 00:00:00 Cecile JG 350.1.13.10 i ty of [place] 4.2.7.2.686 [place] [phone] Al gabi BARNEY [address] [facility] 2022-09-03 2022-09-03 Outpatient R MISTY [facility] [id number] Univers 11:30:00 11:48:06 BERRY itjay [facility] 2022-09-03 2022-09-03 Office [facility] 1.2.840.114 [id number] Univers 11:30:00 11:48:06 Visit Berry [facility] 350.1.13.10 it y of [facility] 4.2.7.2.686 Emanuel as JOLLY?BLEA [id number] Al dicroshan JACOBS[address] OFFICE [facility] 2022-08-24 2022-08-24 Outpatient R RIK [facility] [id number] Univers 09:00:00 09:00:00 TRAY [facility] 2022-08-24 2022-08-24 Office [facility] 1.2.840.114 [id number] Univers 09:00:00 09:00:00 Visit Tray [facility] 350.1.13.10 it y of [place] 4.2.7.2.686 Emanuel as JOLLY?BLEA [phone] [facility] [address] OFFICE [facility] 2022-08-24 2022-08-24 Outpatient R RIK [facility] [id number] Univers 09:00:00 08:53:13 TRAY [facility] 2022-08-24 2022-08-24 Susan Paula [facility] 1.2.840.114 [id number] Univers 00:00:00 00:00:00 Wondiful A HEALTH 350.1.13.10 ity of [place] 4.2.7.2.686 Emanuel as JOLLY?BLEA [id number] [address] OFFICE [facility] 2022-08-22 2022-08-22 Susan Paula [facility] 1.2.840.114 [id number] Univers 00:00:00 00:00:00 Wondiful A HEALTH 350.1.13.10 ity of [place] 4.2.7.2.686 Emanuel as JOLLY?BLEA [id number] [address] MEDICAL OFFICE [facility] 2022-08-13 2022-08-13 Outpatient R WIL [facility] [id number] Univers 14:00:00 14:00:00 MATEO alanjay [facility] 2022-08-06 2022-08-06 Telephone [facility] 1.2.840.114 [id number] Univers 00:00:00 00:00:00 Tray HEALTH 350.1.13.10 it y of [place] 4.2.7.2.686 Emanuel as JOLLY?BLEA [id number] [address] MEDICAL OFFICE [facility] 2022-08-05 2022-08-05 Orders Doctor CLAU 1.2.840.114 [id number] Univers 00:00:00 00:00:00 Only Unassigned, GRAYSON 350.1.13.10 ity of [place] [facility] 4.2.7.2.686 Emanuel as [id number] [address] 2022-07-29 2022-07-29 Refill [facility] 1.2.840.114 [id number] Univers 00:00:00 00:00:00 Tray HEALTH 350.1.13.10 it y of [place] 4.2.7.2.686 Emanuel as JOLLY?BLEA [id number] [address] OFFICE [facility] 2022-07-27 2022-07-27 Outpatient R RIK [facility] [id number] Univers 08:00:00 08:25:43 TRAY flores [facility] 2022-07-27 2022-07-27 Office [facility] 1.2.840.114 [id number] Univers 08:00:00 08:25:43 Visit [facility] 350.1.13.10 it y of [place] 4.2.7.2.686 Emanuel as JOLLY?BLEA [phone] [address] MEDICAL OFFICE BUILDING 2022-07-19 2022-07-19 Orders Doctor CLAU 1.2.840.114 [id number] Univers 00:00:00 00:00:00 Only Unassigned, GRAYSON 350.1.13.10 ity of [place] [facility] 4.2.7.2.686 Emanuel as [id number] [address] 2022-07-08 2022-07-08 Susan [facility] 1.2.840.114 [id number] Univers 00:00:00 00:00:00 Tray JG 350.1.13.10 i ty of [place] 4.2.7.2.686 [place] [id number] Al dical [address] 2022-07-07 2022-07-07 Outpatient R STELLA WORLEY [facility] [id number] Univers 00:00:00 00:00:00 STELLA WORLEY it y of [facility] 2022-07-01 2022-07-01 Orders Doctor CLAU 1.2.840.114 [id number] Univers 00:00:00 00:00:00 Only Unassigned, GRAYSON 350.1.13.10 ity of [place] [facility] 4.2.7.2.686 Emanuel as [id number] [address] 2022-06-30 2022-06-30 Outpatient R BRUNILDA STELLA [facility] [id number] Univers 09:34:33 23:59:00 STELLA WORLEY it y of [facility] 2022-06-30 2022-06-30 [facility] Stella Worley [facility] 1.2.840.114 [id number] Univers 09:34:33 23:59:00 Encounter [place] 350.1.13.10 ity of [facility] 4.2.7.2.686 [place] [id number] [address] 2022-06-30 2022-06-30 [facility] Brunilda Stella [facility] 1.2.840.114 [id number] Univers 09:34:16 23:59:00 Encounter [place] 350.1.13.10 ity of [place] 4.2.7.2.686 [place] C[place] [id number] [address] 2022-06-30 2022-06-30 Orders Doctor CLAU 1.2.840.114 [id number] Univers 00:00:00 00:00:00 Only Unassigned, GRAYSON 350.1.13.10 ity of [place] [facility] 4.2.7.2.686 Emanuel as [id number] [facility] [address] 2022-06-30 2022-06-30 Telephone Stella Worley [facility] 1.2.840.114 [id number] Univers 00:00:00 00:00:00 HEALTH 350.1.13.10 it y of [place] 4.2.7.2.686 [place] [id number] [address] OFFICE BUILDING 2022-06-24 2022-06-24 Outpatient R STELLA WORLEY [facility] [id number] Univers 00:00:00 00:00:00 STELLA WORLEY it y of [facility] 2022-06-24 2022-06-24 Telephone Stella Worley [facility] 1.2.840.114 [id number] Univers 00:00:00 00:00:00 HEALTH 350.1.13.10 it y of [place] 4.2.7.2.686 [place] [id number] [address] OFFICE BUILDING 2022-06-21 2022-06-21 Outpatient R RIK [facility] [id number] Univers 11:00:00 11:00:00 TRAY ity of [facility] 2022-06-21 2022-06-21 Telephone Rik [facility] 1.2.840.114 [id number] Univers 00:00:00 00:00:00 [facility] 350.1.13.10 it y of [place] BYERSCHRISTELLE 4.2.7.2.686 Emanuel as JOLLY?BLEA [id number] Al gabi JACOBSKISHORE [address] [place] [address] OFFICE BUILDING 2022-06-17 2022-06-17 Office Stella Worley [facility] 1.2.840.114 [id number] Univers 11:00:00 11:30:00 Visit HEALTH 350.1.13.10 it y of [place]2.7.2.686 [place] [id number] [address] OFFICE BUILDING 2022-06-17 2022-06-17 Outpatient R STELLA WORLEY [facility] [id number] Univers 11:00:00 11:00:00 STELLA WORLEY it y of [facility] 2022-06-17 2022-06-17 Refill Stella Worley [facility] 1.2.840.114 [id number] Univers 00:00:00 00:00:00 HEALTH 350.1.13.10 it y of [place] 4[place]2.7.2.686 [place] [id number] [address] OFFICE BUILDING 2022-06-17 2022-06-17 Orders Doctor CLAU 1.2.840.114 [id number] Univers 00:00:00 00:00:00 Only Unassigned, GRAYSON 350.1.13.10 ity of [place] [facility] 4.2.7.2.686 Emanuel as [id number] [address] 2022-06-16 2022-06-16 Telephone [facility] 1.2.840.114 [id number] Univers 00:00:00 00:00:00 [facility] 350.1.13.10 it y of [place] 4.2.7.2.686 Emanuel as JOLLY?BLEA [phone] Al gabi [address] OFFICE [facility] 2022-06-15 2022-06-15 Outpatient [facility] [id number] Univers 08:00:00 08:25:29 TRAY ity of [facility] 2022-06-15 2022-06-15 Office [facility] 1.2.840.114 [id number] Univers 08:00:00 08:25:29 Visit [facility] 350.1.13.10 it y of [place] [facility] 4.2.7.2.686 Emanuel as JOLLY?BLEA [phone] Al gabi [address] OFFICE BUILDING 2022-06-14 2022-06-14 Telephone [facility] 1.2.840.114 [id number] Univers 00:00:00 00:00:00 Cecile GREGORIO 350.1.13.10 i ty of [place].2.7.2.686 [place] [id number] Al gabi [facility] [address] [facility] 2022-06-11 2022-06-11 Telephone [facility] 1.2.840.114 [id number] Univers 00:00:00 00:00:00 Tray HEALTH 350.1.13.10 it y of [place] 4.2.7.2.686 Emanuel as JOLLY?BLEA [id number] [address] OFFICE [facility] 2022-06-09 2022-06-09 Telephone [facility] 1.2.840.114 [id number] Univers 00:00:00 00:00:00 Tray HEALTH 350.1.13.10 it y of [place] 4.2.7.2.686 Emanuel as JOLLY?BLEA [id number] [address] OFFICE [facility] 2022-06-04 2022-06-04 RefStella Hamilton [facility] 1.2.840.114 [id number] Univers 00:00:00 00:00:00 HEALTH 350.1.13.10 it y of [place] 4[place]2.7.2.686 [place] [id number] [place] [address] [address] OFFICE [facility] 2022-06-04 2022-06-04 Telephone NurseRy [facility] 1.2.840.114 [id number] Univers 00:00:00 00:00:00 HEALTH 350.1.13.10 it y of [place] 4.2.7.2.686 Emanuel as JOLLY?BLEA [id number] [address] OFFICE [facility] 2022-06-04 2022-06-04 Susan Márquez [facility] 1.2.907.435 [id number] Univers 00:00:00 00:00:00 Cecilemichelle BYERST[place] 350.1.13.10 i ty of [place] 4.2.7.2.686 [place] [id number] [address] 2022-06-03 2022-06-03 Outpatient R STELLA WORLEY [facility] [id number] Univers 09:30:00 09:30:00 STELLA WORLEY it y of [facility] 2022-06-02 2022-06-02 Reffranchesca WorleyStella [facility] 1.2.840.114 [id number] Univers 00:00:00 00:00:00 HEALTH 350.1.13.10 it y of [place] 4.2.7.2.686 [place] [id number] [place] [address] [address] OFFICE BUILDING 2022-06-02 2022-06-02 Aleshiafranchesca WorleyStella [facility] 1.2.840.114 [id number] Univers 00:00:00 00:00:00 HEALTH 350.1.13.10 it y of [place].7.2.[place] [id number] [address] OFFICE BUILDING 2022-06-02 2022-06-02 Telephone Willi [facility] 1.2.840.114 [id number] Univers 00:00:00 00:00:00 Cecile GREGORIO 350.1.13.10 i ty of [place].2.[place] [id number] Al dic[address] 2022-06-01 2022-06-01 Orders Doctor CLAU 1.2.840.114 [id number] Univers 00:00:00 00:00:00 Only Unassigned, GRAYSON 350.1.13.10 ity of [place] [facility] 4.2.7.2.686 Emanuel as [id number] [address] 2022-06-01 2022-06-01 Stella Barrow [facility] 1.2.840.114 [id number] Univers 00:00:00 00:00:00 HEALTH 350.1.13.10 it y of [place].2.[place] [id number] [address] OFFICE BUILDING 2022-06-01 2022-06-01 Reffranchesca Márquez [facility] 1.2.371.757 [id number] Univers 00:00:00 00:00:00 Cecile GREGORIO 350.1.13.10 i ty of [place].7.2.[place] [id number] Al dical NAL [address] [facility] 2022-05-28 2022-05-28 Susan Jolly [facility] 1.2.840.114 [id number] Univers 00:00:00 00:00:00 [facility] 350.1.13.10 it y of [place] 4.2.7.2.686 Emanuel as JOLLY?BLEA [id number] [address] MEDICAL OFFICE BUILDING 2022-05-26 2022-05-26 Stella Barrow [facility] 1.2.840.114 [id number] Univers 00:00:00 00:00:00 HEALTH 350.1.13.10 [place] [id number] [address] OFFICE BUILDING 2022-05-18 2022-05-18 Outpatient R SANJAY SÁNCHEZ [facility] [id number] Univers 09:00:00 09:00:00 ity [facility] 2022-05-17 2022-05-17 Outpatient Brock JOLLY [facility] [id number] Univers 09:00:00 09:00:00 [facility] 2022-05-13 2022-05-13 Orders Doctor CLAU 1.2.840.114 [id number] Univers 00:00:00 00:00:00 Only Unassigned, GRAYSON 350.1.13.10 ity of [place] [facility] 4.2.7.2.686 Emanuel as [phone] [address] 2022-05-13 2022-05-13 [facility] 1.2.840.114 [id number] Univers 00:00:00 00:00:00 [facility] 350.1.13.10 it y of [place] 4.2.7.2.686 Emanuel as JOLLY?BLEA [id number] [address] MEDICAL OFFICE [facility] 2022-05-10 2022-05-10 Outpatient Brock JOLLY [facility] [id number] Univers 16:15:00 16:15:00 TRAY flores [facility] 2022-05-10 2022-05-10 Outpatient STELLA DAVILA [facility] [id number] Univers 00:00:00 00:00:00 STELLA WORLEY it y of [facility] 2022-05-06 2022-05-06 Telephone BrunildaStella [facility] 1.2.840.114 [id number] Univers 00:00:00 00:00:00 HEALTH 350.1.13.10 [place] [id number] [facility] [address] OFFICE BUILDING 2022-05-06 2022-05-06 Orders Doctor CLAU 1.2.840.114 [id number] Univers 00:00:00 00:00:00 Only Unassigned, GRAYSON 350.1.13.10 ity of [place] [facility] 4.2.7.2.686 Emanuel as [id number] [address] 2022-04-29 2022-04-29 Outpatient Brock AGUILAR [facility] [id number] Univers 14:00:00 14:00:00 [facility] 2022-04-14 Outpatient VIK TAVERA [facility] [id number] Univers 09:00:00 09:00:00 ity of [facility] 2022-04-12 2022-04-12 [facility] 1.2.840.114 [id number] Univers 00:00:00 00:00:00 Ricardo GREGORIO 350.1.13.10 ity [facility] [place] [phone] Al dical NAL [address] [facility] 2022-04-09 2022-04-09 Outpatient Brock BARR [facility] [id number] Univers 11:00:00 11:00:00 ISAC ity [facility] 2022-04-08 2022-04-08 [facility] 1.2.840.114 [id number] Univers 08:30:00 23:59:00 Encounter [facility] 350.1.13.10 ity of [place].2.[place] [phone] [facility] [address] OFFICE BUILDING 2022-04-08 2022-04-08 Outpatient Brock [facility] [id number] Univers 08:30:00 23:59:00 SHERI phillipsjay o f [facility] 2022-04-08 2022-04-08 Telephone Stella Worley [facility] 1.2.840.114 [id number] Univers 00:00:00 00:00:00 HEALTH 350.1.13.10 it y of [place].2.[place] [id number] [address] OFFICE [facility] 2022-04-02 2022-04-02 Outpatient R [facility] [id number] Univers 09:30:00 09:30:00 MATEO alanjay [facility] 2022-03-31 2022-03-31 Telephone [facility] 1.2.840.114 [id number] Univers 00:00:00 00:00:00 [facility] 350.1.13.10 it y of [place] 4.2.7.2.686 Emanuel as JOLLY?BLEA [phone] Al gabi CHAIREZ 044 [facility] OFFICE [facility] 2022-03-27 2022-03-27 Emergency [facility] 1.2.249.635 [id number] Univers 07:48:00 08:22:00 Destiyn [place] 350.1.13.10 i ty of [place].7.2.686 [place] [id number] [address] 2022-03-27 2022-03-27 Emergency X [facility] ERT [id number] Univers 07:48:00 08:22:00 DESTINY flores [facility] 2022-03-27 2022-03-27 Orders Doctor OLGUIN 1.2.840.114 [id number] Univers 00:00:00 00:00:00 Only Unassigned, GRAYSON 350.1.13.10 ity of [place] [facility] 4.2.7.2.686 Emanuel as [phone] [facility] [address] 2022-03-24 2022-03-24 [facility]phone [facility] 1.2.840.114 [id number] Univers 00:00:00 00:00:00 [facility] 350.1.13.10 it y of [place] 4.2.7.2.686 Emanuel as JOLLY?BLEA [phone] [address] MEDICAL OFFICE BUILDING 2022-03-19 2022-03-19 Orders Doctor CLAU 1.2.840.114 [id number] Univers 00:00:00 00:00:00 Only Unassigned, GRAYSON 350.1.13.10 ity of [place] [facility] 4.2.7.2.686 Emanuel as [phone] [address] 2022-03-19 2022-03-19 Telephone [facility] 1.2.840.114 [id number] Univers 00:00:00 00:00:00 [facility] 350.1.13.10 it y of [place] 4.2.7.2.686 Emanuel as JOLLY?BLEA [id number] [address] OFFICE [facility] 2022-03-17 2022-03-17 Telephone [facility] 1.2.840.114 [id number] Univers 00:00:00 00:00:00 [facility] 350.1.13.10 it y of [place] 4.2.7.2.686 Emanuel as JOLLY?BLEA [id number] [address] MEDICAL OFFICE [facility] 2022-03-12 2022-03-12 Stella Barrow [facility] 1.2.840.114 [id number] Univers 00:00:00 00:00:00 HEALTH 350.1.13.10 it y of [place] 4.2.7.2.686 [place] mit[place] [phone] [facility] [address] [place] [address] OFFICE BUILDING 2022-03-08 2022-03-08 Telephone [facility] 1.2.840.114 [id number] Univers 00:00:00 00:00:00 [facility] HEALTH 350.1.13.10 it y of [place] 4.2.7.2.686 Emanuel as JOLLY?BLEA [id number] [address] MEDICAL OFFICE [facility] 2022-03-02 2022-03-02 Outpatient [facility] MARCUS [id number] Univers 07:39:00 11:22:00 CECILE flores of [facility] 2022-03-02 2022-03-02 [facility] 1.2.840.114 [id number] Univers 07:39:00 11:22:00 Encounter Cecile JG 350.1.13.10 ity of [place].2.7.2.686 [place]ICAL [id number] [facility] [address] 2022-03-02 2022-03-02 Surgery [facility] 1.2.662.804 [id number] Univers 09:11:00 10:25:00 Cecile JG 350.1.13.10 i ty of [place] 4.2.7.2.686 [place] [id number] [facility] [address] 2022-03-02 2022-03-02 Orders Doctor CLAU 1.2.840.114 [id number] Univers 00:00:00 00:00:00 Only Unassigned, GRAYSON 350.1.13.10 ity of [place] [facility] 4.2.7.2.686 Emanuel as [id number] [place] [address] [address] 2022-03-01 2022-03-01 Telephone [facility] 1.2.840.114 [id number] Univers 00:00:00 00:00:00 Cecile GREGORIO 350.1.13.10 i ty of [place].2.7.2.[place] [phone] Al dical NAL 188 [facility] 2022-03-01 2022-03-01 Susan [facility] 1.2.840.114 [id number] Univers 00:00:00 00:00:00 Ricardo GREGORIO 350.1.13.10 ity of [place].2.7.2.[place] [phone] Al dical NAL 059 [facility] 2022-02-25 2022-02-25 Outpatient Brock JOLLY [facility] [id number] Univers 11:00:00 11:00:00 TRAY itjay of [facility] 2022-02-25 2022-02-25 Telephone Stella Worley [facility] 1.2.840.114 [id number] Univers 00:00:00 00:00:00 HEALTH 350.1.13.10 it y of [place] 4.2.7.2.[place] [id number] [facility] [address] OFFICE BUILDING 2022-02-24 2022-02-24 Telephone [facility] 1.2.840.114 [id number] Univers 00:00:00 00:00:00 Tray HEALTH 350.1.13.10 it y of [place] 4.2.7.2.686 Emanuel as JOLLY?BLEA [phone] Al gabi CHAIREZ [address] [place] [address] OFFICE [facility] 2022-02-23 2022-02-23 [facility] 1.2.840.114 [id number] Univers 00:00:00 00:00:00 Tray HEALTH 350.1.13.10 it y of [place] 4.2.7.2.686 Emanuel as JOLLY?BLEA [id number] [facility] [address] OFFICE [facility] 2022-02-22 2022-02-22 Reffranchesca PaulaUNM [facility] 1.2.840.114 [id number] Univers 00:00:00 00:00:00 Wondiful A HEALTH 350.1.13.10 ity of [place] 4.2.7.2.686 Emanuel as JOLLY?BLEA [phone] Al gabi CHAIREZ [address] [place] [address] OFFICE [facility] 2022-02-18 2022-02-18 Patient [facility] 1.2.840.114 [id number] Univers 00:00:00 00:00:00 Secure Msg Tray HEALTH 350.1.13.10 ity of [place] 4.2.7.2.686 Emanuel as JOLLY?BLEA [phone] Al gabi CHAIREZ [address] [place] [address] OFFICE [facility] 2022-02-18 2022-02-18 Telephone [facility] 1.2.840.114 [id number] Univers 00:00:00 00:00:00 Tray [place] 350.1.13.10 i ty of [place] 4.2.7.2.686 [place] [phone] Al gabi [address] 2022-02-16 2022-02-16 Outpatient R [facility], [facility] [id number] Univers 09:15:00 09:30:10 TRAY flores [facility] 2022-02-16 2022-02-16 Office Jesicabradford [facility] 1.2.840.114 [id number] Univers 09:15:00 09:30:10 Visit Tray [facility] 350.1.13.10 it y of [place] 4.2.7.2.686 Emanuel as JOLLY?BLEA [phone] [address] MEDICAL OFFICE BUILDING 2022-02-16 2022-02-16 Outpatient R JESICABRADFORD [facility] [id number] Univers 09:15:00 09:15:00 TRAY flores [facility] 2022-02-16 2022-02-16 Telephone Vik Oliveira [facility] 1.2.840.114 [id number] Univers 00:00:00 00:00:00 HEALTH 350.1.13.10 it y of [place]2.[place].2.[place] [id number] [address] OFFICE BUILDING 2022-02-15 2022-02-15 Outpatient R HENRIQUEZ [facility] [id number] Univers 15:15:00 15:15:00 CAPRICEBRAYDEN flores [facility] 2022-02-14 2022-02-14 Nurse CLAU Zarate 1..430.999 [id number] Univers 00:00:00 00:00:00 Triage Young GALICIA 350.1.13.10 it y of HOSPITAL 4.2.7.2.686 Emanuel as [phone] [address] 2022-02-12 2022-02-12 Telephone Rik [facility] 1.2.840.114 [id number] Univers 00:00:00 00:00:00 Tray HEALTH 350.1.13.10 it y of [place] 4.2.7.2.686 Emanuel as JOLLY?BLEA [id number] [address] MEDICAL OFFICE BUILDING 2022-02-11 2022-02-11 Telephone Stella Worley [facility] 1.2.840.114 [id number] Univers 00:00:00 00:00:00 HEALTH 350.1.13.10 it y of [place]2.[place].2.[place] [id number] [address] OFFICE BUILDING 2022-02-11 2022-02-11 Telephone Vik Oliveira [facility] 1.2.840.114 [id number] Univers 00:00:00 00:00:00 HEALTH 350.1.13.10 it y of [place].2.7.2.[place] [id number] [address] OFFICE BUILDING 2022-02-10 2022-02-10 Outpatient R [facility] [id number] Univers 00:00:00 00:00:00 ity of [facility] 2022-02-10 2022-02-10 Outpatient R [facility] [id number] Univers 00:00:00 00:00:00 ity of [facility] 2022-02-10 2022-02-10 Orders Doctor CLAU 1..840.114 [id number] Univers 00:00:00 00:00:00 Only Unassigned, GRAYSON 350.1.13.10 ity of [place] [facility] 4.2.7.2.686 Emanuel as [phone] [address] 2022-02-08 2022-02-08 Outpatient R STELLA WORLEY [facility] [id number] Univers 10:00:00 11:34:48 STELLA WORLEY it y of [facility] 2022-02-08 2022-02-08 Office Stella Worley [facility] 1.2.840.114 [id number] Univers 10:00:00 11:34:48 Visit HEALTH 350.1.13.10 it y of [place].2.7.2.[place] [id number] [address] OFFICE BUILDING 2022-02-01 2022-02-01 Telephone Momo [facility] 1.2.079.932 [id number] Univers 00:00:00 00:00:00 Isac S HEALTH 350.1.13.10 it y of [place] 4.2.7.2.686 Emanuel as JOLLY?BLEA [phone] Al gabi CHAIREZ [address] [place] [address] MEDICAL OFFICE BUILDING 2022-01-28 2022-01-28 Orders Doctor CLAU 1.2.840.114 [id number] Univers 00:00:00 00:00:00 Only Unassigned, GRAYSON 350.1.13.10 ity of [place] [facility] 4.2.7.2.686 Emanuel as [phone] [facility] [address] 2022-01-27 2022-01-27 [facility]phone [facility] 1.2.840.114 [id number] Univers 00:00:00 00:00:00 [facility] 350.1.13.10 it y of [place] 4.2.7.2.686 Emanuel as JOLLY?BLEA [id number] [address] OFFICE [facility] 2022-01-27 2022-01-27 [facility]phone [facility] 1.2.840.114 [id number] Univers 00:00:00 00:00:00 [facility] 350.1.13.10 it y of [place] [facility] 4.2.7.2.686 Emanuel as JOLLY?BLEA [phone] [address] OFFICE [facility] 2022-01-27 2022-01-27 Telephone Vik Oliveira [facility] 1.2.840.114 [id number] Univers 00:00:00 00:00:00 HEALTH 350.1.13.10 it y of [place].2.686 [place] [phone] [facility] [address] OFFICE [facility] 2022-01-25 2022-01-25 Outpatient R WIL [facility] [id number] Univers 10:20:49 23:59:00 MATEO itjay of [facility] 2022-01-25 2022-01-25 [facility] 1..840.114 [id number] Univers 10:00:00 23:59:00 Encounter Mateo GREGORIO 350.1.13.10 ity of [place] 4.2.7.2.686 [place] [id number] [facility] [address] 2022-01-25 2022-01-25 Outpatient [facility] [id number] Univers 00:00:00 00:00:00 MATEO flores of [facility] 2022-01-25 2022-01-25 Orders Doctor CLAU 1.2.840.114 [id number] Univers 00:00:00 00:00:00 Only Unassigned, GRAYSON 350.1.13.10 ity of [place] [facility] 4.2.7.2.686 Emanuel as [id number] [address] 2022-01-22 2022-01-22 Telephone [facility] 1.2.840.114 [id number] Univers 00:00:00 00:00:00 Tray HEALTH 350.1.13.10 it y of [place] 4.2.7.2.686 Emanuel as JOLLY?BLEA [phone] [address] OFFICE [facility] 2022-01-22 2022-01-22 Orders Doctor CLAU 1.2.840.114 [id number] Univers 00:00:00 00:00:00 Only Unassigned, GRAYSON 350.1.13.10 ity of [place] [facility] 4.2.7.2.686 Emanuel as [phone] [address] 2022-01-21 2022-01-21 [facility] 1.2.840.114 [id number] Univers 00:00:00 00:00:00 Wondiful A HEALTH 350.1.13.10 ity of [place] 4.2.7.2.686 Emanuel as JOLLY?BLEA [id number] [address] 2022-01-20 2022-01-20 Reffranchesca PaulaUNM [facility] 1.2.840.114 [id number] Univers 00:00:00 00:00:00 Wondiful A HEALTH 350.1.13.10 ity of [place] 4.2.7.2.686 Emanuel as JOLLY?BLEA [id number] [address] 2022-01-19 2022-01-19 Telephone [facility] 1.2.840.114 [id number] Univers 00:00:00 00:00:00 Tray HEALTH 350.1.13.10 it y of [place] 4.2.7.2.686 Emanuel as JOLLY?BLEA [phone] Al dical CONTRERAS 044 [facility] 2022-01-18 2022-01-18 Refill [facility] 1.2.840.114 [id number] Univers 00:00:00 00:00:00 [facility] 350.1.13.10 it y of [place] 4.2.7.2.686 Emanuel as JOLLY?BLEA [phone] Al dical CONTRERAS 044 [facility] OFFICE [facility] 2022-01-13 2022-01-13 Telephone [facility] 1..840.114 [id number] Univers 00:00:00 00:00:00 Arnoldo [place] 350.1.13.10 i ty [facility] 4.2.7.2.[place] [id number] Al dicroshan BARNEY [address] [facility] 2022-01-11 2022-01-11 Outpatient Brock [facility] [id number] Univers 14:45:00 23:59:[address] [facility] 2022-01-11 2022-01-11 Outpatient Brock [facility] [id number] Univers 14:45:00 23:59:[address] [facility] 2022-01-11 2022-01-11 Office [facility] 1.2.840.114 [id number] Univers 13:45:00 14:00:00 Visit [facility] 350.1.13.10 it y [facility] 4.2.7.2.686 Emanuel as JOLLY?BLEA [phone] Al dicroshan CHAIREZ [address] [facility] OFFICE [facility] 2022-01-11 2022-01-11 Outpatient Brock [facility] [id number] Univers 13:45:00 13:45:[address] [facility] 2022-01-07 2022-01-07 Telephone [facility] 1.2.840.114 [id number] Univers 00:00:00 00:00:00 [facility] 350.1.13.10 it y of [place] 4.2.7.2.686 Emanuel as JOLLY?BLEA [id number] Al gabi CHAIREZ [address] [place] [address] MEDICAL OFFICE [facility] 2022-01-06 2022-01-06 Telephone [facility] 1.2.840.114 [id number] Univers 00:00:00 00:00:00 Wondiful A HEALTH 350.1.13.10 ity of [place] 4.2.7.2.686 Emanuel as JOLLY?BLEA [phone] Al gabi CHAIREZ [address] [place] [address] OFFICE [facility] 2022-01-05 2022-01-05 Telephone [facility] 1.2.840.114 [id number] Univers 00:00:00 00:00:00 Tary HEALTH 350.1.13.10 it y of [place] 4.2.7.2.686 Emanuel as JOLLY?BLEA [phone] Al gabi CHAIREZ [address] [place] [address] 2022-01-04 2022-01-04 Telephone [facility] 1.2.840.114 [id number] Univers 00:00:00 00:00:00 Tray HEALTH 350.1.13.10 it y of [place] 4.2.7.2.686 Emanuel as JOLLY?BLEA [id number] Al gabi CHAIREZ [address] [place] [address] OFFICE [facility] 2021-12-31 2021-12-31 [facility] 1.2.840.114 [id number] Univers 00:00:00 00:00:00 Tray HEALTH 350.1.13.10 it y of [place] 4.2.7.2.686 Emanuel as JOLLY?BLEA [phone] Al gabi CHAIREZ [address] [place] [address] OFFICE [facility] 2021-12-31 2021-12-31 [facility] 1.2.840.114 [id number] Univers 00:00:00 00:00:00 Tray HEALTH 350.1.13.10 it y of [place] 4.2.7.2.686 Emanuel as JOLLY?BLEA [id number] Al gabi CHAIREZ [address] [place] [address] OFFICE [facility] 2021-12-30 2021-12-30 Patient [facility] 1.2.840.114 [id number] Univers 00:00:00 00:00:00 Outreach Genesis Shah [facility] 350.1.13.10 ity of [place] 4.2.7.2.686 Emanuel as PROFESSIO [phone] Al gabi [address] ONE 2021-12-28 2021-12-28 Outpatient R [facility] [id number] Univers 09:30:00 10:07:08 [facility] 2021-12-28 2021-12-28 Outpatient R [facility] [id number] Univers 09:30:00 10:07:08 [facility] 2021-12-28 2021-12-28 Office [facility] 1.2.825.912 [id number] Univers 09:30:00 10:07:08 Visit Cecile GREGORIO 350.1.13.10 i ty [facility] 4.2.7.2.[place] [id number] [address] 2021-12-24 2021-12-24 Outpatient R [facility] [id number] Univers 14:00:00 14:00:00 ity of [facility] 2021-12-24 2021-12-24 Patient [facility] 1.2.840.114 [id number] Univers 00:00:00 00:00:[address] 350.1.13.10 ity of [place] 4.2.7.2.686 Emanuel as JOLLY?BLEA [id number] Al samirde CONTRERAS [address] [place] [address] OFFICE [facility] 2021-12-22 2021-12-22 Telephone [facility] 1.2.840.114 [id number] Univers 00:00:00 00:00:00 Cecile GREGORIO 350.1.13.10 i ty [facility] 4.2.7.2.[place] [id number] [address] 2021-12-16 2021-12-16 Telephone [facility] 1.2.840.114 [id number] Univers 00:00:00 00:00:00 [facility] 350.1.13.10 it y of [place] [facility] 4.2.7.2.686 Emanuel as JOLLY?BLEA [phone] Me gabi CHAIREZ [address] [place] [address] MEDICAL OFFICE BUILDING 2021-12-11 2021-12-11 Surgery [facility] 1.2.606.061 [id number] Univers 10:33:00 11:46:00 Cecile GREGORIO 350.1.13.10 i ty of [place] 4.2.7.2.686 [place]ICAL [id number] [facility] [address] 2021-12-11 2021-12-11 Surgery [facility] 1.2.530.209 [id number] 9758 Univers 10:33:00 11:46:00 Cecile JG 350.1.13.10 i ty of [place] 4.2.7.2.[place] [id number] [address] 2021-12-11 2021-12-11 [facility] 1.2.314.136 [id number] Univers 10:33:00 11:46:00 Cecile JG 350.1.13.10 i ty of [place] 4.2.7.2.[place] [id number] [address] 2021-12-11 2021-12-11 Outpatient R [facility] [id number] Univers 08:40:00 11:25:00 CECILE flores [facility] 2021-12-11 2021-12-11 [facility] 1.2.840.114 [id number] Univers 08:40:00 11:25:00 Encounter Cecile GREGORIO 350.1.13.10 ity of [place] 4.2.7.2.[place] [id number] [address] 2021-12-11 2021-12-11 Outpatient R [facility] MARCUS [id number] Univers 08:40:00 11:25:00 CECILE flores [facility] 2021-12-11 2021-12-11 Outpatient R [facility] MARC[facility] [id number] Univers 08:40:00 11:25:00 CECILE flores [facility] 2021-12-11 2021-12-11 Orders Doctor CLAU 1.2.840.114 [id number] Univers 00:00:00 00:00:00 Only Unassigned, GRAYSON 350.1.13.10 ity of [place] [facility] 4.2.7.2.686 Emanuel as [id number] [address] 2021-12-09 2021-12-09 Telephone [facility] 1.2.840.114 [id number] Univers 00:00:00 00:00:00 Wondiful A HEALTH 350.1.13.10 ity [facility] 4.2.7.2.686 Emanuel as JOLLY?BLEA [id number] Al gabi CHAIREZ [address] MEDICAL OFFICE [facility] 2021-12-08 2021-12-08 Outpatient R [facility] [id number] Univers 13:00:00 13:00:00 ity of [facility] 2021-12-08 2021-12-08 Telephone [facility] 1.2.840.114 [id number] Univers 00:00:00 00:00:00 Tray HEALTH 350.1.13.10 it y of [place] 4.2.7.2.686 Emanuel as JOLLY?BLEA [phone] Al gabi CHAIREZ 0[address] [facility] OFFICE [facility] 2021-12-08 2021-12-08 Telephone [facility] 1.2.840.114 [id number] Univers 00:00:00 00:00:00 Tray HEALTH 350.1.13.10 it y of [place] [facility] 4.2.7.2.686 Emanuel as JOLLY?BLEA [phone] Al gabi CHAIREZ [address] MEDICAL OFFICE [facility] 2021-12-03 2021-12-03 Outpatient R [facility] [id number] Univers 13:30:00 13:30:00 ORPHEUS ity [facility] 2021-12-03 2021-12-03 Telephone [facility] 1.2.840.114 [id number] Univers 00:00:00 00:00:00 Cecile GREGORIO 350.1.13.10 i ty [facility] 4.2.7.2.[place] [phone] Al gabi BARNEY [address] [facility] 2021-12-03 2021-12-03 Telephone Nisa [facility] 1.2.840.114 [id number] Univers 00:00:00 00:00:00 Wondiful A HEALTH 350.1.13.10 ity of [place] 4.2.7.2.686 Emanuel as PROFESSIO [phone] Al gabi BARNEY [address] [place] [address] OFFICE [facility] ONE 2021-12-01 2021-12-01 Outpatient [facility] [id number] Univers 14:15:00 14:54:12 WONDIFUL ity o f [facility] 2021-12-01 2021-12-01 [facility] [id number] Univers 14:15:00 14:54:12 Visit Wondiful A HEALTH [id number] ity of [place] [id number] Emanuel as JOLLY?BLEA [phone] [facility] [address] [place] [address] 2021-12-01 2021-12-01 [facility] [id number] Univers 14:15:00 14:54:12 WONDIFUL ity o f [facility] 2021-12-01 2021-12-01 Patient Scot [facility] [id number] Univers 00:00:00 00:00:00 Outreach Vik L HEALTH [id number] i ty of [place] [id number] Emanuel as JOLLY?BLEA [phone] Al gabi CHAIREZ [address] [place] [address] OFFICE [facility] 2021-12-01 2021-12-01 Patient Scot [facility] [id number] Univers 00:00:00 00:00:00 Outreach Vik L HEALTH [id number] i ty of [place] [id number] Emanuel as JOLLY?BLEA [phone] Al gabi CHAIREZ [address] [place] [address] OFFICE [facility] 2021-11-18 2021-11-18 [facility] [id number] Univers 10:00:00 10:44:34 WONDIFUL ity o f [facility] 2021-11-18 2021-11-18 Outpatient R NISA, [facility] [id number] Univers 10:00:00 10:44:34 WONDIFUL ity o f [facility] 2021-11-18 2021-11-18 Outpatient R NISA [facility] [id number] Univers 10:00:00 10:00:00 WONDIFUL ity o f [facility] 2021-11-18 2021-11-18 Outpatient R NISA, [facility] [id number] Univers 10:00:00 10:00:00 WONDIFUL ity o f [facility] 2021-11-18 2021-11-18 Outpatient R NISA [facility] [id number] Univers 10:00:00 10:00:00 WONDIFUL ity o f [facility] 2021-11-16 2021-11-16 Outpatient R MÁRQUEZ, [facility] [id number] Univers 09:30:00 09:30:00 CECILE flores [facility] 2021-11-16 2021-11-16 Outpatient R WILLI, [facility] [id number] Univers 09:30:00 09:30:00 CECILE jay [facility] 2021-11-16 2021-11-16 Outpatient R WILLI, [facility] [id number] Univers 09:30:00 09:30:00 CECILE [facility] 2021-11-15 2021-11-15 Emergency [facility] ERT [id number] Univers 09:06:00 12:49:00 DESTINY phillipsjay [facility] 2021-11-15 2021-11-15 Emergency [facility] 1.2.441.186 [id number] Univers 09:06:00 12:49:00 Destiny GREGORIO 350.1.13.10 i Angel 4.2.7.2.686 [facility] [phone] [facility] 084 Branch 2021-11-15 2021-11-15 Emergency X [facility] ERT [id number] Univers 09:06:00 12:49:00 DESTINY flores [facility] 2021-11-10 2021-11-10 Telephone [facility] 1.2.840.114 [id number] Univers 00:00:00 00:00:00 Wondiful A HEALTH 350.1.13.10 ity of [place] 4.2.7.2.686 Emanuel as JOLLY?BLEA [phone] [address] OFFICE [facility] 2021-11-05 2021-11-05 Orders Doctor CLAU 1.2.840.114 [id number] Univers 00:00:00 00:00:00 Only Unassigned, GRAYSON 350.1.13.10 ity of [place] [facility] 4.2.7.2.686 Emanuel as [phone] [address] 2021-11-05 2021-11-05 Telephone [facility] 1.2.840.114 [id number] Univers 00:00:00 00:00:00 Wondiful A HEALTH 350.1.13.10 ity of [place] 4.2.7.2.686 Emanuel as JOLLY?BLEA [phone] [address] OFFICE [facility] 2021-11-03 2021-11-03 Telephone [facility] 1.2.840.114 [id number] Univers 00:00:00 00:00:00 Wondiful A HEALTH 350.1.13.10 ity of [place] 4.2.7.2.686 Emanuel as JOLLY?BLEA [phone] [address] 2021-11-03 2021-11-03 Telephone [facility] 1.2.840.114 [id number] Univers 00:00:00 00:00:00 Wondiful A HEALTH 350.1.13.10 ity of [place] 4.2.7.2.686 Emanuel as JOLLY?BLEA [phone] [address] OFFICE [facility] 2021-10-27 2021-10-27 Sanjay Holden 1.2.840.114 [id number] Univers 00:00:00 00:00:00 Management H 350.1.13.10 ity of [place] 4.2.7.2.686 Emanuel as [phone] [place] 0[address] [place] 2021-10-26 2021-10-26 Telephone Sanjay SánchezPRIYA 1.2.840.114 [id number] Univers 00:00:00 00:00:00 H 350.1.13.10 it y of [facility] 4.2.7.2.686 Emanuel as [phone] [address] 2021-10-23 2021-10-23 Telephone [facility] 1.2.875.859 [id number] Univers 00:00:00 00:00:00 Corryjake GREGORIO 350.1.13.10 ity of [place] [phone] Al gabi [address] 2021-10-22 2021-10-22 Outpatient Brock BARR [facility] [id number] Univers 14:45:00 14:45:[address] [facility] 2021-10-22 2021-10-22 Outpatient [facility] [id number] Univers 14:45:00 14:45:[address] [facility] 2021-10-22 2021-10-22 Outpatient Brock BARR [facility] [id number] Univers 14:45:00 14:45:[address] [facility] 2021-10-22 2021-10-22 Outpatient Brock [facility] [id number] Univers 14:45:00 14:45:[address] [facility] 2021-10-19 2021-10-19 Telephone [facility] .2.840.114 [id number] Univers 00:00:00 00:00:00 Wondiful A HEALTH 350.1.13.10 ity [facility] 4.2.7.2.686 Emanuel as JOLLY?BLEA [phone] Al gabi CHAIREZ [address] [place] [address] OFFICE [facility] 2021-10-13 2021-10-13 Outpatient Brock COON [facility] [id number] Univers 10:30:00 10:41:12 CORRY flores [facility] 2021-10-13 2021-10-13 Office [facility] 1.2.840.114 [id number] Univers 10:30:00 10:41:12 Visit Corry GREGORIO 350.1.13.10 ity [facility] 4.2.7.2.686 [place] forrester KAHLILIO [phone] Al gabi BARNEY [address] [facility] 2021-10-13 2021-10-13 Outpatient R [facility] [id number] Univers 10:30:00 10:41:12 CORRY itjay [facility] 2021-09-29 2021-09-29 Outpatient R [facility] [id number] Univers 16:14:01 23:59:00 CAPRICE itjay [facility] 2021-09-29 2021-09-29 Outpatient R [facility] [id number] Univers 16:14:01 23:59:00 [facility] 2021-09-29 2021-09-29 [facility] 1.2.840.114 [id number] Univers 16:14:01 23:59:00 Encounter Caprice THAPA 350.1.13.10 ity of [place] 4.2.7.2.686 Emanuel as JOLLY?BLEA [phone] Al samirroshan CHAIREZ 809 [facility] 2021-09-29 2021-09-29 Outpatient Brock [facility] [id number] Univers 16:14:01 23:59:00 [facility] 2021-09-29 2021-09-29 Office [facility] 1.2.840.114 [id number] Univers 16:00:00 16:58:02 Visit Isac S HEALTH 350.1.13.10 it y [facility] 4.2.7.2.686 Emanuel as JOLYL?BLEA [phone] Al samirroshan CHAIREZ 198 [facility] 2021-09-29 2021-09-29 Outpatient Brock [facility] [id number] Univers 16:00:00 16:58:02 ISAC ity [facility] 2021-09-29 2021-09-29 Outpatient Brock [facility] [id number] Univers 16:00:00 16:58:02 ISAC ity [facility] 2021-09-29 2021-09-29 Outpatient Brock MOMO [facility] [id number] Univers 16:00:00 16:00:00 ISAC flores [facility] 2021-09-24 2021-09-24 Outpatient Brock MOMO [facility] [id number] Univers 14:00:00 14:00:00 ISAC flores [facility] 2021-09-19 2021-09-19 Nurse Caprice Ozuna 1.2.840.114 [id number] Univers 00:00:00 00:00:00 Triage GRAYSON 350.1.13.10 it y of [facility] 4.2.7.2.686 Emanuel as [phone] [address] 2021-09-09 2021-09-09 Prep For [facility] 1.2.840.114 [id number] Univers 00:00:00 00:00:00 Surgery Corry GREGORIO 350.1.13.10 ity [facility] [place].2.7.2.[place] [phone] Al dical NAL 204 [facility] 2021-09-08 2021-09-08 Office [facility] 1.2.331.112 [id number] Univers 14:30:00 16:16:36 Visit Cecile GREGORIO 350.1.13.10 i ty [facility] [place].2.7.2.[place] [phone] Al dical NAL 188 [facility] 2021-09-08 2021-09-08 Outpatient R WILLI [facility] [id number] Univers 14:30:00 16:16:36 CECILE flores [facility] 2021-09-08 2021-09-08 Outpatient R WILLI [facility] [id number] Univers 14:30:00 16:16:36 CECILE ity [facility] 2021-09-08 2021-09-08 Outpatient R WILLI [facility] [id number] Univers 14:30:00 14:30:00 CECILE ity [facility] 2021-09-08 2021-09-08 Orders Doctor OLGUIN 1.2.840.114 [id number] Univers 00:00:00 00:00:00 Only Unassigned, GRAYSON 350.1.13.10 ity of [place] [facility] 4.2.7.2.686 Emanuel as [phone] [address] 2021-09-02 2021-09-02 Outpatient R FLORENCE [facility] [id number] Univers 14:00:00 14:00:00 CAPRICE ity of [facility] 2021-08-31 2021-08-31 Orders Doctor CLAU 1.2.840.114 [id number] Univers 00:00:00 00:00:00 Only Unassigned, GRAYSON 350.1.13.10 ity of [place] [facility] 4.2.7.2.686 Emanuel as [phone] [address] 2021-08-26 2021-08-26 Outpatient R NISA [facility] [id number] Univers 10:45:00 11:58:51 WONDIFUL ity o f [facility] 2021-08-26 2021-08-26 Outpatient R NISA [facility] [id number] Univers 10:45:00 11:58:51 WONDIFUL ity o f [facility] 2021-08-26 2021-08-26 Outpatient R NISA [facility] [id number] Univers 10:45:00 11:58:51 WONDIFUL ity o f [facility] 2021-08-26 2021-08-26 Outpatient R NISA [facility] [id number] Univers 10:45:00 11:58:51 WONDIFUL ity o [facility] 2021-08-26 2021-08-26 Office [facility] 1.2.840.114 [id number] Univers 10:34:47 11:58:51 Visit Wondiful A HEALTH 350.1.13.10 ity of [place] 4.2.7.2.686 Emanuel as JOLLY?BLEA [phone] Al samir[address] MEDICAL OFFICE BUILDING 2021-08-17 2021-08-17 Case Nisa [facility] 1.2.840.114 [id number] Univers 00:00:00 00:00:00 Management Wondiful A HEALTH 350.1.13.10 ity [facility] 4.2.7.2.686 Emanuel as JOLLY?BLEA [phone] Al dicroshan JACOBSEY [address] [place] MEDICAL OFFICE BUILDING 2021-08-13 2021-08-13 Outpatient R NISA [facility] [id number] Univers 07:58:20 23:59:00 WONDIFUL ity o f [facility] 2021-08-13 2021-08-13 Hospital [facility] 1.2.499.957 [id number] Univers 07:58:20 23:59:00 Encounter Wondiful A [place] 350.1.13.10 ity [facility] 4.2.7.2.686 [place] [phone] [facility] [address] [place] 2021-08-13 2021-08-13 Outpatient R NISA [facility] [id number] Univers 07:58:20 23:59:00 WONDIFUL ity o f [facility] 2021-08-13 2021-08-13 Director Process Improvement Zachariah, Adc Lab Main [facility] 1.2.8 40.114 [id number] Univers 07:57:57 08:12:57 Visit Andrea Paula [place] 350.1.13. 10 ity of [place] 4.2.7.2.686 [place] [facility] [phone] Al gabi BARNEY [address] [facility] 2021-08-13 2021-08-13 Outpatient R NISA [facility] [id number] Univers 00:00:00 00:00:00 WONDIFUL ity o f [facility] 2021-08-04 2021-08-04 Outpatient R NISA [facility] [id number] Univers 15:30:00 15:42:52 WONDIFUL ity o f [facility] 2021-08-04 2021-08-04 Outpatient Brock NISA [facility] [id number] Univers 15:30:00 15:42:52 WONDIFUL ity o f [facility] 2021-08-04 2021-08-04 Outpatient R NISA [facility] [id number] Univers 15:30:00 15:42:52 WONDIFUL ity o f [facility] 2021-08-04 2021-08-04 Outpatient R NISA [facility] [id number] Univers 15:30:00 15:42:52 WONDIFUL ity o f [facility] 2021-08-04 2021-08-04 Outpatient R NISA [facility] [id number] Univers 15:30:00 15:42:52 WONDIFUL ity o [facility] 2021-08-04 2021-08-04 Office [facility] 1.2.840.114 [id number] Univers 14:30:05 15:42:52 [facility] 350.1.13.[address] [facility] 4.2.7.2.686 Emanuel as JOLLY?BLEA [phone] [address] MEDICAL OFFICE BUILDING 2021-08-04 2021-08-04 Outpatient R NISA [facility] [id number] Univers 15:30:00 15:30:00 WONDIFUL ity o [facility] 2021-08-03 2021-08-03 Pre Visit CLAU Edmondson 1.2.840.114 [id number] Univers 00:00:00 00:00:00 Outreach Jorge GALICIA 350.1.13.10 i ty [facility] 4.2.7.2.686 Emanuel as [phone] [place] [address] [address] 2021-07-15 2021-07-15 Outpatient R AIMEE [facility] [id number] Univers 14:20:00 14:20:00 SHORTY ity o [facility] 2021-07-15 2021-07-15 Outpatient R AIMEE [facility] [id number] Univers 14:20:00 14:20:00 SHORTY ity o [facility] 2021-07-15 2021-07-15 Outpatient R AIMEE [facility] [id number] Univers 14:20:00 14:20:00 SHORTY ity o [facility] 2021-07-15 2021-07-15 Outpatient R AIMEE, [facility] [id number] Univers 14:20:00 14:20:00 SHORTY ity o f [facility] 2021-07-14 2021-07-14 Reffranchesca Paula [facility] 1.2.840.114 [id number] Univers 00:00:00 00:00:00 Wondiful A Health 350.1.13.10 [place] 4.2.7.2.686 Emanuel as Professio [phone] [address] Office [facility] One 2021-07-10 2021-07-10 Outpatient Kautz_S [facility] [id number] Devoted 05:13:00 05:13:00 1015 Medica l Group 2021-07-02 2021-07-02 Refill Nisa [facility] 1.2.840.114 [id number] Univers 00:00:00 00:00:00 Wondiful A Health 350.1.13.10 [place] 4.2.7.2.686 Emanuel as Professio [phone] [address] Office [facility] One 2021-06-15 2021-06-15 Orders Doctor CLAU 1.2.840.114 [id number] Univers 00:00:00 00:00:00 Only Unassigned, GRAYSON 350.1.13.10 ity of [place] [facility] 4.2.7.2.686 Emanuel as [phone] [facility] [address] 2021-06-08 2021-06-08 Patient Grupo Garcia 1.2.840.114 [id number] Univers 00:00:00 00:00:00 Outreach Emily Chavarria 350.1.13.10 ity of [place]2.[place].2.[place] [phone] [facility] [address] [place] 2021-06-08 2021-06-08 Refill Vik Oliveira [facility] 1.2.840.114 [id number] Univers 00:00:00 00:00:00 Health 350.1.13.10 it y of [place]2.7.2.686 [place] [phone] [place] 7[address] [place] Office Building 2021-05-25 2021-05-25 Emergency X MONTY MDFRANDY ERT [id number] Univers 18:22:00 20:23:00 LAUREEN ity of [facility] 2021-05-25 2021-05-25 Emergency X DREVER, [facility] ERT [id number] Univers 18:22:00 20:23:00 LAUREEN ity of [facility] 2021-05-25 2021-05-25 Emergency X DREVER, [facility] ERT [id number] Univers 18:22:00 20:23:00 LAUREEN ity of [facility] 2021-05-25 2021-05-25 Emergency X DREVER, [facility] ERT [id number] Univers 18:22:00 20:23:00 LAUREEN ity of [facility] 2021-05-25 2021-05-25 Emergency X DREVER, [facility] ERT [id number] Univers 18:22:00 20:23:00 LAUREEN ity [facility] 2021-05-25 2021-05-25 Emergency Drever, [facility] 1.2.309.350 [id number] Univers 18:22:00 20:23:00 Laureen [facility] 350.1.13.10 ity [facility] 4.2.7.2.686 [place] [phone] [address] 2021-05-21 2021-05-21 Outpatient R LAILA ORELLANA [facility] [id number] Univers 09:30:00 09:30:00 LAILA [facility]RELLANA [facility] 2021-05-19 2021-05-19 Susan [facility] 1.2.840.114 [id number] Univers 00:00:00 00:00:00 Wondiful A [facility] 350.1.13.10 ity [facility] 4.2.7.2.686 Emanuel as [facility] [phone] Al dical formerly [facility] 0[address] Office Building One 2021-05-14 2021-05-14 Outpatient R SANJAY SÁNCHEZ [facility] [id number] Univers 09:00:00 09:00:00 ity [facility] 2021-05-09 2021-05-09 Outpatient DMG DMG [id number] Devoted 11:00:00 11:00:00 0814 Medica l Group 2021-05-08 2021-05-08 Outpatient R FLORENCE [facility] [id number] Univers 07:37:21 23:59:00 CAPRICE flores [facility] 2021-05-08 2021-05-08 Outpatient R FLORENCE [facility] [id number] Univers 07:37:21 23:59:00 CAPRICE flores [facility] 2021-05-08 2021-05-08 Outpatient R FLORENCE [facility] [id number] Univers 07:37:21 23:59:00 CAPRICEBRAYDEN flores [facility] 2021-05-08 2021-05-08 Outpatient R FLORENCE [facility] [id number] Univers 07:37:21 23:59:00 CAPRICE jay [facility] 2021-05-08 2021-05-08 Outpatient R MOMO [facility] [id number] Univers 08:15:00 [facility] 2021-05-07 2021-05-07 Outpatient DMG DM [id number] Devoted 12:00:00 12:00:00 0812 Medica l Group 2021-04-27 2021-04-27 Reffracnhesca PrasadUN[facility] 1.2.840.114 [id number] Univers 00:00:00 00:00:00 [facility] 350.1.13.10 it y of [place] 4.2.7.2.686 Emanuel as PROFESSIO [phone] Al dical [place] [address] [address] OFFICE BUILDING ONE 2021-04-21 2021-04-21 Outpatient Brock PAULA [facility] [id number] Univers 15:45:00 15:45:00 WONDIFUL ity o f [facility] 2021-04-07 2021-04-07 Outpatient Brock PRASAD [facility] [id number] Univers 09:20:00 09:20:00 RD jay [facility] 2021-04-02 2021-04-02 Outpatient R MOMO [facility] [id number] Univers 08:45:00 08:45:00 ISAC [facility] 2021-04-01 2021-04-01 Emergency X NINO, [facility] ERT [id number] Univers 13:00:00 15:36:00 DESTINY itjay of [facility] 2021-04-01 2021-04-01 Emergency X NINO, [facility] ERT [id number] Univers 13:00:00 15:36:00 DESTINY ity of [facility] 2021-04-01 2021-04-01 Emergency X NINO, [facility] ERT [id number] Univers 13:00:00 15:36:00 DESTINY ity [facility] 2021-04-01 2021-04-01 Outpatient R [facility] [id number] Univers 08:45:00 08:45:00 ity [facility] 2021-03-28 2021-03-28 Outpatient R BELLA, [facility] [id number] Univers 09:40:00 09:40:00 CHELA ity o f [facility] 2021-03-27 2021-03-27 Outpatient R WIL, [facility] [id number] Univers 09:30:00 09:30:00 MATEO itjay [facility] 2021-03-26 2021-03-26 Outpatient R MOMO, [facility] [id number] Univers 15:15:00 15:15:00 ISAC ity [facility] 2021-03-25 2021-03-25 Outpatient R JAYMIE, [facility] [id number] Univers 08:30:00 08:30:00 CORRY ity [facility] 2021-03-23 2021-03-23 Outpatient R SELF, [facility] [id number] Univers 08:00:00 08:00:00 EMERY ity o f [facility] 2021-03-20 2021-03-20 Emergency X STEPHEN, K [facility] ERT [id number] Univers 19:09:00 19:47:00 ity of [facility] 2021-03-20 2021-03-20 Emergency X STEPHEN, K [facility] ERT [id number] Univers 19:09:00 19:47:00 ity of [facility] 2021-03-20 2021-03-20 Emergency X STEPHEN, K [facility] ERT [id number] Univers 19:09:00 19:47:00 ity [facility] 2021-03-18 2021-03-18 Outpatient Brock [facility] NUT [id number] Univers 00:00:00 00:00:00 CAPRICEBRAYDEN flores [facility] 2021-03-12 2021-03-12 Outpatient [facility] [id number] Univers 08:30:00 08:30:00 [facility] 2021-03-11 2021-03-11 Outpatient Brock [facility] [id number] Univers 16:15:00 16:15:[address] [facility] 2021-03-10 2021-03-10 Susan CastroUNM [facility] 1.2.840.114 [id number] Univers 00:00:00 00:00:00 [facility] 350.1.13.10 it y [facility] 4.2.7.2.686 [facility] [phone] [place] [address] OFFICE BUILDING 2021-02-25 2021-02-25 Outpatient Brock [facility] [id number] Univers 14:30:00 14:30:[address] [facility] 2021-02-25 2021-02-25 Telephone [facility]UN[facility] 1.2.722.718 [id number] 00:00:00 00:00:00 Ricardo [place] 350.1.13.10 [place] 4.2.7.2.686 Professio [phone] [facility] Building 2021-02-24 2021-02-24 Outpatient Brock PAULA [facility] [id number] Univers 11:00:00 11:00:00 WONDIFUL ity o f [facility] 2021-02-19 2021-02-19 Outpatient Brock HENRIQUEZ [facility] [id number] Univers 10:03:49 23:59:00 CAPRICE jay [facility] 2021-02-19 2021-02-19 Outpatient Brock HENRIQUEZ [facility] [id number] Univers 00:00:00 00:00:00 [facility] 2021-02-17 2021-02-17 Outpatient R [facility] [id number] Univers 17:40:00 17:40:00 ity [facility] 2021-02-17 2021-02-17 Outpatient R JONA [facility] [id number] Univers 17:40:00 17:17:33 ROGE ity [facility] 2021-02-17 2021-02-17 Outpatient R JONA [facility] [id number] Univers 17:40:00 17:17:33 ROGE ity [facility] 2021-02-17 2021-02-17 Outpatient R JONA [facility] [id number] Univers 17:40:00 17:17:33 ROGE ity [facility] 2021-02-10 2021-02-10 Outpatient R ATUL [facility] [id number] Univers 09:00:00 09:00:00 [facility] 2021-02-09 2021-02-09 Outpatient R MOMO [facility] [id number] Univers 14:45:00 14:45:00 [facility] 2021-02-09 2021-02-09 Outpatient R MOMO [facility] [id number] Univers 14:45:00 14:45:00 ISAC [facility] 2021-02-04 2021-02-04 Outpatient R MARCELINA VALERA [facility] [id number] Univers 10:30:00 10:30:00 [facility] 2021-02-03 2021-02-03 Outpatient R NISA [facility] [id number] Univers 16:30:00 16:30:00 WONDIFUL ity o f [facility] 2021-01-27 2021-01-27 Outpatient R NAV ANTONIO [facility] [id number] Univers 15:00:00 15:00:00 ity [facility] 2021-01-21 2021-01-21 Outpatient R ATUL [facility] [id number] Univers 11:00:00 11:00:00 SENDIL ity [facility] 2021-01-20 2021-01-20 Outpatient R SANJAY SÁNHCEZ [facility] [id number] Univers 11:00:00 11:00:00 ity [facility] 2021-01-14 2021-01-14 Outpatient R RIK, [facility] [id number] Univers 10:45:00 10:45:00 TRAY ity [facility] 2021-01-08 2021-01-08 Outpatient R BARR, [facility] [id number] Univers 08:45:00 08:45:00 ISAC ity [facility] 2021-01-06 2021-01-06 Outpatient R AIMEE, [facility] [id number] Univers 11:00:00 11:00:00 SHORTY ity o f [facility] 2021-01-01 2021-01-01 Outpatient R NISA, [facility] [id number] Univers 15:00:00 15:00:00 WONDIFUL ity o f [facility] 2021-01-01 2021-01-01 Outpatient R NISA, [facility] [id number] [facility] 15:00:00 15:00:00 WONDIFUL ity o f [facility] 2021-01-01 2021-01-01 Outpatient R NISA, [facility] [id number] [facility] 15:00:00 15:00:00 WONDIFUL ity o f [facility] 2021-01-01 2021-01-01 Outpatient R NISA, [facility] [id number] [facility] 15:00:00 15:00:00 WONDIFUL ity o f [facility] 2020-12-13 2020-12-13 Outpatient [facility] [id number] Univers 08:25:00 08:25:00 ity [facility] 2020-12-13 2020-12-13 Outpatient R BELGICA, [facility] [id number] Univers 08:25:00 08:25:00 TAMMY ity [facility] 2020-12-13 2020-12-13 Outpatient R BELGICA [facility] [id number] Univers 08:25:00 08:25:00 TAMMY ity [facility] 2020-12-13 2020-12-13 Outpatient R BELGICA, [facility] [id number] [facility] 08:25:00 08:25:00 TAMMY ity [facility] 2020-12-02 2020-12-02 Outpatient R JAKE, [facility] [id number] Univers 09:00:00 09:00:00 LIANA ity [facility] 2020-12-02 2020-12-02 Outpatient R JAKE, [facility] [id number] Univers 09:00:00 09:00:00 LIANA ity [facility] 2020-12-02 2020-12-02 [facility] R [facility] [facility] [id number] Univers 09:00:00 09:00:00 LIANA ity [facility] 2020-12-02 2020-12-02 Outpatient R JAKE, [facility] [id number] Univers 09:00:00 09:00:00 [facility] 2020-11-22 Outpatient R BELGICA [facility] [id number] Univers 09:40:00 09:40:00 TAMMY [facility] 2020-11-22 2020-11-22 Outpatient R BELGICA [facility] [id number] Univers 09:40:00 09:40:00 [facility] 2020-11-22 Outpatient R BELGICA [facility] [id number] Univers 09:40:00 09:40:00 [facility] 2020-11-21 2020-11-21 Outpatient R DONOVAN [facility] [id number] Univers 14:00:00 14:00:00 LAKISHA [facility] 2020-11-20 2020-11-20 Outpatient R LAILA ORELLANA [facility] [id number] Univers 15:00:00 15:00:00 LAILA ORELLANA [facility] 2020-11-09 2020-11-09 Outpatient R OSMAR [facility] [id number] Univers 08:20:00 08:20:00 [facility] 2020-11-09 2020-11-09 Outpatient R OSMAR [facility] [id number] Univers 08:20:00 08:20:00 [facility] 2020-11-09 2020-11-09 Outpatient R OSMAR, [facility] [id number] Univers 08:20:00 08:20:00 RD flores [facility] 2020-11-07 2020-11-07 Outpatient R VIK OLIVEIRA [facility] [id number] Univers 11:30:00 11:30:00 ity [facility] 2020-11-06 2020-11-06 Outpatient R NISA, [facility] [id number] Univers 08:15:00 08:15:00 WONDIFUL ity o f [facility] 2020-10-16 2020-10-16 Outpatient R OSMAR, [facility] [id number] Univers 18:00:00 18:00:00 RD jay [facility] 2020-10-02 2020-10-02 Outpatient R MOMO, [facility] [id number] Univers 10:15:00 10:15:00 ISAC [facility] 2020-09-22 2020-09-22 Outpatient R SELF, [facility] [id number] Univers 08:00:00 08:00:00 EMERY ity o f [facility] 2020-09-15 2020-09-15 Outpatient R NISA, [facility] [id number] Univers 00:00:00 00:00:00 WONDIFUL ity o f [facility] 2020-09-15 2020-09-15 Outpatient R NISA [facility] [id number] Univers 00:00:00 00:00:00 WONDIFUL ity o f [facility] 2020-09-14 2020-09-14 Outpatient R JONA, [facility] [id number] Univers 08:40:00 08:40:00 ROGE [facility] 2020 2020 Outpatient R NISA, [facility] [id number] Univers 00:00:00 00:00:00 WONDIFUL ity o f [facility] 2020-09-10 2020-09-10 Outpatient R DONITA, [facility] [id number] Univers 08:00:00 08:00:00 SHANTI ity [facility] 2020-09-08 2020-09-08 Outpatient R SELF, [facility] [id number] Univers 08:00:00 08:00:00 EMERY ity o f [facility] 2020-09-04 2020-09-04 Outpatient R NISA, [facility] [id number] Univers 16:00:00 16:00:00 WONDIFUL ity o f [facility] 2020-08-25 2020-08-25 Outpatient R NISA, [facility] [id number] Univers 11:00:00 11:13:03 WONDIFUL ity o f [facility] 2020-08-25 2020-08-25 Outpatient R NISA, [facility] [id number] Univers 10:30:00 10:30:00 WONDIFUL ity o f [facility] 2020-08-06 2020-08-06 Outpatient R PATRICIO, [facility] [id number] Univers 10:20:00 10:20:00 BALJIT flores [facility] 2020-08-06 2020-08-06 Outpatient R PATRICIO, [facility] [id number] Univers 09:00:00 09:00:00 BALJIT ity [facility] 2020-08-01 2020-08-01 Outpatient R WIL, [facility] [id number] Univers 10:00:00 10:00:00 MATEO mark [facility] 2020-07-18 2020-07-18 Outpatient R LAILA ORELLANA [facility] [id number] Univers 11:00:00 11:00:00 LAILA ORELLANA i jonas [facility] 2020-07-17 2020-07-17 Outpatient R VIK OLIVEIRA [facility] [id number] Univers 12:00:00 12:00:00 ity [facility] 2020-07-14 2020-07-14 Outpatient R NISA, [facility] [id number] Univers 10:45:00 10:45:00 WONDIFUL ity o f [facility] 2020-07-07 2020-07-07 Outpatient R MAKSIM, [facility] [id number] Univers 08:30:00 08:30:00 AUBRIE mark [facility] 2020-06-27 2020-06-27 Outpatient R NISA [facility] [id number] Univers 15:15:00 15:15:00 WONDIFUL ity o f [facility] 2020-06-12 2020-06-12 Outpatient R MAKSIM, [facility] [id number] Univers 15:45:00 15:45:00 AUBRIE [facility] 2020-06-05 2020-06-05 Outpatient R MOMO, [facility] [id number] Univers 10:30:00 10:30:00 ISAC [facility] 2020-06-03 2020-06-03 Outpatient R ATUL, [facility] [id number] Univers 09:00:00 09:00:00 [facility] 2020-05-16 Outpatient R ROXANNEVIK [facility] [id number] Univers 16:30:00 16:30:00 ity [facility] 2020-05-09 2020-05-09 Outpatient R [facility] [id number] Univers 10:20:00 10:20:00 [facility] 2020-04-21 2020-04-21 Outpatient R ARGENIS, [facility] [id number] Univers 11:40:00 11:40:00 DORITA [facility] 2020-04-18 2020-04-18 [facility] [id number] Univers 09:30:00 09:30:00 SENDIL [facility] 2020-04-15 2020-04-15 Outpatient R [facility] [id number] Univers 10:20:00 10:20:00 [facility] 2020-04-04 Outpatient R [facility] [id number] Univers 10:00:00 10:00:00 ity [facility] 2020-04-01 2020-04-01 Outpatient R [facility] [id number] Univers 08:00:00 08:00[facility]-03-20 2020-03-20 Outpatient R ROMARIO, [facility] [id number] Univers 10:00:00 10:00:00 FABRICIO [facility] 2020-03-10 2020-03-10 Outpatient R MIKAYLA, [facility] [id number] Univers 08:45:00 08:45:00 CL [facility] 2020-03-03 2020-03-03 Outpatient R MAKSIM [facility] [id number] Univers 08:00:00 08:00:00 AUBRIE [facility] 2020-01-22 2020-01-22 Outpatient R MOMO [facility] [id number] Univers 15:45:00 15:45:00 ISAC [facility] 2020-01-22 2020-01-22 Outpatient R MOMO [facility] [id number] Univers 10:45:00 10:45:00 ISAC [facility] 2020-01-18 2020-01-18 Outpatient R SANJAY SÁNCHEZ [facility] [id number] Univers 11:30:00 11:30:00 ity [facility] 2020-01-11 2020-01-11 Outpatient R LAILA ORELLANA [facility] [id number] Univers 11:00:00 11:00:00 LAILA ORELLANA i [facility] 2020-01-10 2020-01-10 Outpatient R NISA [facility] [id number] Univers 10:00:00 10:00:00 WONDIFUL ity o f [facility] 2020-01-04 2020-01-04 Outpatient R VIK OLIVEIRA [facility] [id number] Univers 11:30:00 11:30:00 ity [facility] 2020-01-01 2020-01-01 Outpatient R [facility] [id number] Univers 08:00:00 08:00:00 ity [facility] 2019-12-21 2019-12-21 Outpatient R NISA [facility] [id number] Univers 09:30:00 09:30:00 WONDIFUL ity o f [facility] 2019-12-06 2019-12-06 Outpatient R ROMARIO [facility] [id number] Univers 11:00:00 11:00:00 FABRICIO [facility] 2019-11-30 2019-11-30 Outpatient R MOMO [facility] [id number] Univers [facility]:30[facility] 2019[facility]29 Outpatient R MOMO [facility] [id number] Univers 08:15:00 08:15:00 ISAC [facility] 2019-11-23 2019-11-23 Outpatient R [facility] [id number] Univers 08:00:00 08:00:00 [facility] Results Test Description Test Time Test Comments Results Result Comments Source COMP. METABOLIC PANEL (50336) 2022-10-29 21:16:00 Test Item Value Reference Range Interpretation Comme nts NA (test code = 8236748691) 140 mmol/L 135-145 K (test code = 1130691588) 4.1 mmol/L 3.5-5.0 CL (test code = 4939292770) 108 mmol/L 98-108 CO2 TOTAL (test code = 8418584272) 25 mmol/L 23-31 AGAP (test code = 5576830890) 7 2-16 BUN (test code = 5275667997) 7 mg/dL 7-23 GLUCOSE (test code = 2282743782) 112 mg/dL 70-110 H CREATININE (test code = 0.96 mg/dL 0.50-1.04 7722282513) TOTAL BILI (test code = 0.8 mg/dL 0.1-1.7 8822802547) CALCIUM (test code = 9265542052) 8.1 mg/dL 8.6-10.6 L T PROTEIN (test code = 7862827362) 6.3 g/dL 6.3-8.2 ALBUMIN (test code = 1339873063) 4.2 g/dL 3.5-5.0 ALK PHOS (test code = 7824535218) 94 U/L 34-122 ALTv (test code = 1742-6) 28 U/L 5-35 AST(SGOT) (test code = 5002293887) 36 U/L 13-40 eGFR (test code = 2310232977) 61.8 mL/min/1.73m2 AREN (test code = AREN) [...] tests). Lab Interpretation (test code = Abnormal 66593-9) [facility] WITH [id number] 21:11:40 Test Item Value Reference Range Interpretation [...] (test code = 86.2 fL 39.0-49.9 H 32423-3) RDW-CV (test code = 22.4 % 12.0-15.5 H 788-0) PLT (test code = 151 See_Comment L [Automated 777-3) message] The sy stem which generated this result transmitted reference range : 166 - 358 10*3/ ?L. The reference r stefanie was not used to interpret this result as normal/abnormal . MPV (test code = 12.4 fL 9.5-12.9 37723-0) NRBC/100 WBC (test 0.0 See_Comment [Automat ed code = 8509234056) message] The system which generated this result transmitted reference range : 0.0 - 10.0 /100 WBCs. The refer ence range was not u sed to interpret th is result as normal/abnormal . NRBC x10^3 (test code See_Comment [Auto mated = 9143655060) message] The s ystem which generated this result transmitted reference range : 10*3/?L. The reference range was not used to interpret this result as normal/abnormal . GRAN MAT (NEUT) % 69.5 % (test code = 770-8) IMM GRAN % (test code 0.70 % = 5420769708) LYMPH % (test code = 19.9 % 736-9) MONO % (test code = 7.5 % 5905-5) EOS % (test code = 1.7 % 713-8) BASO % (test code = 0.7 % 706-2) GRAN MAT x10^3(ANC) 2.86 10*3/uL 1.88-7.09 (test code = 5133671578) IMM GRAN x10^3 (test 0.03 10*3/uL 0.00-0.06 code = 5469178711) LYMPH x10^3 (test code 0.82 10*3/uL 1.32-3.29 L = 731-0) MONO x10^3 (test code 0.31 10*3/uL 0.33-0.92 L = 742-7) EOS x10^3 (test code = 0.07 10*3/uL 0.03-0.39 711-2) BASO x10^3 (test code 0.03 10*3/uL 0.01-0.07 = 704-7) Lab Interpretation Abnormal (test code = 12750-7) [facility] METABOLIC PANEL$[id number] 10:00:00 Test Item Value Reference Range Interpretation Comments GLUCOSE-Q (test code 88 mg/dL 65-99 ? = 2345-7) Fasting referen ce interval UREA NITROGEN (BUN)-Q 14 mg/dL 7-25 (test code = 3094-0) CREATININE-Q (test 1.39 mg/dL 0.50-0.99 H code = 2160-0) EGFR-Q (test code = 47 See_Comment L The eGFR is based 69460-4) on the CKD-EPI 2020 equation. To calculate the n ew eGFR from a previous Creatinine or Cystatin Cresul t, go to [email or web address] ne y.org/professio na rosalinda/kdoqi/gfr%5F ca lculator [Automated message] The system which [...] . SODIUM-Q (test code = 139 mmol/L 926-508 6321-2) POTASSIUM-Q (test 3.5 mmol/L 3.5-5.3 code = 2823-3) CHLORIDE-Q (test code 105 mmol/L 98-110 = 2075-0) CARBON DIOXIDE-Q 23 mmol/L 20-32 (test code = 2028-9) CALCIUM-Q (test code 8.9 mg/dL 8.6-10.2 = 68802-7) AREN (test code = AREN) PERFORMED BY [employer] [place]; [address] [place] [address]; LORRIE QUIROZ MD Lab Interpretation Abnormal (test code = 71093-6) [facility]-Glucose [id number] 11:44:22 Test Item Value Reference Range Interpretation Comments POC-Glucose Meter (test 156 mg/dL 70-110 H : TE STED AT [facility] code = 1538) [address] [place] [address], [facility] 30: Checker/Techni waylon ID = [id number] for SREE MARTINEZ Lab Interpretation (test Abnormal code = 72739-0) [facility] [id number] 11:44:22 Test Item Value Reference Range Interpretation Comments POC-Glucose Meter (test 156 mg/dL 70-110 H : TE STED AT [facility] code = 1538) [address] [place] [address], [facility] 30: Checker/Techni waylon ID = [id number] for JUAN SREE Lab Interpretation (test Abnormal code = 31351-1) [facility]-Glucose [id number] 11:44:22 Test Item Value Reference Range Interpretation Comments POC-Glucose Meter (test 156 mg/dL 70-110 H : TE STED AT [facility] code = 1538) [address] [place] [address], [facility] 30: Checker/Techni waylon ID = [id number] for SREE MARTINEZ Lab Interpretation (test Abnormal code = 68035-2) [facility]-GLUCOSE [id number] 11:44:22 Test Item Value Reference Range Interpretation Comments POC-GLUCOSE METER 156 mg/dL 70-110 H : TESTED A T [facility] 6720 (BEAKER) (test code = [facility], 1538) [address]: Checker/Techni waylon ID = [id number] for SREE BLANCHARD POCT-GLUCOSE [id number] 08:01:18 Test Item Value Reference Range Interpretation Comments POC-GLUCOSE METER 116 mg/dL 70-110 H : TESTED A T [facility] 6720 (BEAKER) (test [facility] = [facility], 1538) [address]: Checker/Techni waylon ID = [id number] for SREE BLANCHARD [id number] 05:04:32 Test Item Value Reference Range Interpretation Comments HAPTOGLOBIN (BEAKER) (test code = 30 mg/dL 14-258 366) Checker ID - NICHELLE LLACTATE DEHYDROGENASE (LDH)2022-10-25 04:52:08 Test Item Value Reference Range Interpretation Comments LACTATE DEHYDROGENASE (BEAKER) (test 416 U/L 125-220 H code = 635) Checker ID - NICHELLE [id number] 04:52:07 Test Item Value Reference Range Interpretation Comments MAGNESIUM (BEAKER) (test code = 2.0 mg/dL 1.6-2.6 627) Checker ID Jonathan STEWARD LHEPATIC FUNCTION [id number] 04:52:07 Test Item Value Reference Range Interpretation [...] (test code = 18 U/L 6-55 347) Checker ID - NICHELLE LBASIC METABOLIC [id number] 04:52:06 Test Item Value Reference Range Interpretation [...] not appl icable for dialysis patien ts Checker ID - PIAYA LCBC W/PLT COUNT & AUTO [id number] 04:03:09 Test Item Value Reference Range Interpretation [...] PERCENT (BEAKER) (test code = 2801) RETICULOCYTE [id number] 04:03:06 Test Item Value Reference Range Interpretation Comments RETICULOCYTE COUNT PCT (BEAKER) (test 26.7 % 0.5-1.7 H code = 575) Checker ID - [id number]-GLUCOSE [id number] 23:24:20 Test Item Value Reference Range Interpretation Comments POC-GLUCOSE METER 129 mg/dL 70-110 H : TESTED A T [facility] 6720 (BEAKER) (test code = [facility], 153) [address]: Checker/Techni waylon ID = [id number] for JEFF ORIN POCT-GLUCOSE [id number] 17:45:20 Test Item Value Reference Range Interpretation Comments POC-GLUCOSE METER 214 mg/dL 70-110 H : TESTED A T [facility] 6720 ([facility]) (test code = [facility], 153) 644[address]: Checker/Techni waylon ID = [id number] for TE WILFREDO, NAVI POCT-GLUCOSE [id number] 11:53:05 Test Item Value Reference Range Interpretation Comments POC-GLUCOSE METER 154 mg/dL 70-110 H : TESTED A T [facility] 6720 (BEAKER) (test code = [facility], 153) 01144: Checker/Techni waylon ID = [id number] for TE WILFREDO, NAVI POCT-GLUCOSE [id number] 07:48:48 Test Item Value Reference Range Interpretation Comments POC-GLUCOSE METER 116 mg/dL 70-110 H : TESTED A T [facility] 6720 (BEAKER) (test code = [place], 1538) [address]: Checker/Techni waylon ID = [id number] for NAVI LOWE HEPATIC FUNCTION [id number] 04:05:23 Test Item Value Reference Range Interpretation [...] (test code = 19 U/L 6-55 347) Checker ID - NEELAM WSpecimen slightly ictericLACTATE DEHYDROGENASE (LDH) 2022-10-24 04:05:23 Test Item Value Reference Range Interpretation Comments LACTATE DEHYDROGENASE (BEAKER) (test 410 U/L 125-220 H code = 635) Checker ID - NEELAM WC-REACTIVE [id number] 04:05:23 Test Item Value Reference Range Interpretation Comments C-REACTIVE PROTEIN (BEAKER) (test 0.38 mg/dL 0.00-0.50 code = 676) Checker ID - NEELAM [id number] 04:05:22 Test Item Value Reference Range Interpretation Comments MAGNESIUM (BEAKER) (test code = 2.1 mg/dL 1.6-2.6 627) Checker ID - NEEALM WBASIC METABOLIC [id number] 04:05:22 Test Item Value Reference Range Interpretation [...] not appl icable for dialysis patien ts Checker ID - NEELAM WSpecimen slightly [id number] 04:00:05 Test Item Value Reference Range Interpretation Comments HAPTOGLOBIN (BEAKER) (test code = 15 mg/dL 14-258 366) Checker ID - ADMINCBC W/PLT COUNT & AUTO [id number] 03:40:48 Test Item Value Reference Range Interpretation [...] PERCENT (BEAKER) (test code = 2801) RETICULOCYTE [id number] 03:40:45 Test Item Value Reference Range Interpretation Comments RETICULOCYTE COUNT PCT (BEAKER) (test 25.4 % 0.5-1.7 H code = 575) Checker ID - [id number]-GLUCOSE [id number] 22:02:38 Test Item Value Reference Range Interpretation Comments POC-GLUCOSE METER 142 mg/dL 70-110 H : TESTED A T [facility] 6720 (BEAKER) (test code = [place], 1538) 80041: Checker/Techni waylon ID = [id number] for KEIRA BERG POCT-GLUCOSE [id number] 17:37:11 Test Item Value Reference Range Interpretation Comments POC-GLUCOSE METER 168 mg/dL 70-110 H : TESTED A T [facility] 6720 (RHEA) (test code = ROZ Gutiérrez [facility], 1538) 07092: Checker/Techni waylon ID = [id number] for NAVI LOWE POCT-GLUCOSE [id number] 12:37:13 Test Item Value Reference Range Interpretation Comments POC-GLUCOSE METER 166 mg/dL 70-110 H : TESTED A T [facility] 6720 (RHEA) (test code = ROZ Gutiérrez [facility], 1538) 02584: Checker/Techni waylon ID = [id number] for NAVI LOWE Antibody [id number] 12:29:00 Test Item Value Reference Range Interpretation [...] Electronic Sign ature: Vik Renae M.[facility]. [facility] [id number] 12:29:00 Test Item Value Reference Range Interpretation Comments ANTIBODY ID WARM AUTO AB (BEAKER) (test code = 2253) Antibody Consult SIGNED [...] be is sued. Electronic Sign ature: Vik Renea M.D. [facility] [id number] 12:29:00 Test Item Value Reference Range Interpretation [...] Sign ature: Vik Renae M.D. [facility]SE [id number] 09:38:23 Test Item Value Reference Range Interpretation Comments POC-GLUCOSE METER 112 mg/dL 70-110 H : TESTED A T [facility] 6720 (RHEA) (test code = [place], 1538) [address]: Checker/Techni waylon ID = [id number] for NAVI LOWE HEMOGLOBIN [id number] 08:54:11 Test Item Value Reference Range Interpretation [...] 5.7- 6.4% indicates increased risk for diabetes (prediabetes)."Checker ID - [id number] 05:49:52 Test Item Value Reference Range Interpretation Comments FERRITIN (BEAKER) (test code = 371.94 ng/mL 5.00-275.00 H 361) Checker ID - NEIL [id number] 05:24:24 Test Item Value Reference Range Interpretation Comments HAPTOGLOBIN (BEAKER) (test code = < mg/dL 14-258 L 366) Checker ID - ADMINC-REACTIVE [id number] 05:15:33 Test Item Value Reference Range Interpretation Comments C-REACTIVE PROTEIN (BEAKER) (test 0.67 mg/dL 0.00-0.50 H code = 676) Checker ID - NEIL GHEPATIC FUNCTION [id number] 05:15:32 Test Item Value Reference Range Interpretation [...] (test code = 20 U/L 6-55 347) Checker ID - NEIL GLACTATE DEHYDROGENASE (LDH)2022-10-23 05:15:32 Test Item Value Reference Range Interpretation Comments LACTATE DEHYDROGENASE (BEAKER) (test 443 U/L 125-220 H code = 635) Checker ID - NEIL GBASIC METABOLIC [id number] 05:15:31 Test Item Value Reference Range Interpretation [...] not appl icable for dialysis patien ts Checker ID - NEIL [id number] 05:15:31 Test Item Value Reference Range Interpretation Comments MAGNESIUM (BEAKER) (test code = 2.1 mg/dL 1.6-2.6 627) Checker ID - NEIL GCBC W/PLT COUNT & AUTO [id number] 04:59:58 Test Item Value Reference Range Interpretation [...] PERCENT (BEAKER) (test code = 2801) RETICULOCYTE [id number] 04:59:04 Test Item Value Reference Range Interpretation Comments RETICULOCYTE COUNT PCT (BEAKER) (test 25.8 % 0.5-1.7 H code = 575) Checker ID - [id number] ID - 6000POCT-GLUCOSE [id number] 22:53:45 Test Item Value Reference Range Interpretation Comments POC-GLUCOSE METER 161 mg/dL 70-110 H : TESTED A T [facility] 6720 (BEAKER) (test code = [place], 1538) 77[address]: Checker/Techni waylon ID = [id number] for DA TREVOR SUNSHINE RAD, ABDOMEN/KUB, 1 VIEW [id number] 20:13:00Reason for exam:->abd pain [facility] : 1975 Sex: FFINAL REPORT Abdomen x-ray Clinical Diagnosis: Abdominal painComparison: NoneViews: Three supine views of abdomen obtained. Findings/impression:Please note that the examination islimited secondary to patient's body habitus. Bowel gas pattern is nonspecific but appears nonobstructive. Cholecystectomy clips noted within the right upper quadrant. No acute osseous abnormality is dariela ntified. Signed: Matt Weaver MDReport Verified Date/Time: 10/22/2022 [...] 95-100% range. PERIPHERAL BLOOD SMEAR - HOLD [id number] 13:47:13 Test Item Value Reference Range Interpretation Comments PERIPHERAL SMEAR SAVE Saved 1 slide at 1346 (BEAKER) (test code = 1815) [id number] 12:57:37 Test Item Value Reference Range Interpretation Comments HAPTOGLOBIN (BEAKER) (test code = < mg/dL 14-258 L 366) Checker ID - ADMINVITAMIN [id number] 12:33:39 Test Item Value Reference Range Interpretation Comments VITAMIN B12 (BEAKER) (test code = 1532 pg/mL 213-816 H 774) Checker ID - [id number] 12:33:39 Test Item Value Reference Range Interpretation Comments FERRITIN (BEAKER) (test code = 418.77 ng/mL 5.00-275.00 H 361) Checker ID - [id number] 12:15:37 Test Item Value Reference Range Interpretation Comments MAGNESIUM (BEAKER) (test code = 2.0 mg/dL 1.6-2.6 627) Checker ID - ADMINBILIRUBIN, [id number] 12:15:37 Test Item Value Reference Range Interpretation Comments BILIRUBIN DIRECT (BEAKER) (test 0.6 mg/dL 0.1-0.5 H code = 706) Checker ID - ADMINLACTATE DEHYDROGENASE (LDH)2022-10-22 12:15:37 Test Item Value Reference Range Interpretation Comments LACTATE DEHYDROGENASE (BEAKER) (test 460 U/L 125-220 H code = 635) Checker ID - ADMINCOMPREHENSIVE METABOLIC [id number] 12:15:36 Test Item Value Reference Range Interpretation [...] not appl icable for dialysis patien ts Checker ID - ADMINIRON, TIBC, % SAT. (WITHOUT FERRITIN)2022-10-22 12:07:17 Test Item Value Reference Range Interpretation Comments IRON (BEAKER) (test code = 547) 86.0 ug/dL 40.0-160.0 TOTAL IRON BINDING CAPACITY 306 ug/dL 250-450 (BEAKER) (test code = 769) IRON % SATURATION (2) (BEAKER) 28 % 20-55 (test code = 2590) Checker ID - ADMINRETICULOCYTE [id number] 12:06:15 Test Item Value Reference Range Interpretation Comments RETICULOCYTE COUNT PCT (BEAKER) (test 24.8 % 0.5-1.7 H code = 575) Checker ID - [id number] ID - [id number]/[id number] 12:02:33 Test Item Value Reference Range Interpretation [...] mechanical heart valves.CBC W/PLT COUNT & AUTO [id number] 12:00:27 Test Item Value Reference Range Interpretation [...] 0.00-1.00 PERCENT (BEAKER) (test code = 2801) [id number] 11:58:50 Test Item Value Reference Range Interpretation Comments FIBRINOGEN LEVEL (BEAKER) (test 285 mg/dl 225-434 code = 658) THYROID STIMULATING [id number] 04:51:23 Test Item Value Reference Range Interpretation Comments TSH (test code = See_Comment Biotin has been [id number]) reported to cau se a negative bias, interpret resul ts relative to pat iecarolyn's use of biotin. [Automated mess age] The system [employer] generated this result transmitted ref erence range: 0.45 - 4 .70 mIU/L. The refe rence range was not u sed to interpret this result as normal/abnor mal. Lab Interpretation (test Normal code = 02440-7) [facility] [id number] 04:26:53 Test Item Value Reference Range Interpretation Comments FREE T4 (test code = See_Comment [Autom ated message] [id number]) The system [employer] generated this result transmitted ref erence range: 0.78 - 2 .20 ng/dL:. The ref erence range was not u sed to interpret this result as normal/abnor mal. Lab Interpretation (test Normal code = 09160-7) [facility]. METABOLIC PANEL (14440)2022-10-18 23:04:17 Test Item Value Reference Range Interpretation Comments NA (test code = 141 mmol/L 135-145 1214833805) K (test code = 5.1 mmol/L 3.5-5.0 H 1255162317) CL (test code = 109 mmol/L 98-108 H 4299878824) CO2 TOTAL (test code = 21 mmol/L 23-31 L 3990657202) AGAP (test code = 2-16 1980670606) BUN (test code = 7 mg/dL 7-23 5424088124) GLUCOSE (test code = 104 mg/dL 70-110 8744715059) CREATININE (test code = 1.41 mg/dL 0.50-1.04 H 0058660074) TOTAL BILI (test code = 0.8 mg/dL 0.1-1.5 3961738018) CALCIUM (test code = 9.1 mg/dL 8.6-10.6 9014324511) T PROTEIN (test code = 7.5 g/dL 6.3-8.2 1875175898) ALBUMIN (test code = 5.0 g/dL 3.5-5.0 0481761669) ALK PHOS (test code = 139 U/L 34-122 H 3135401213) ALTv (test code = 28 U/L 5-35 1742-6) AST(SGOT) (test code = 34 U/L 13-40 4559178217) eGFR (test code = mL/min/1.73m2 7498221085) AREN (test code = AREN) Association of [...] tests). Lab Interpretation Abnormal (test code = 97627-8) [id number]57[facility]36 Test Item Value Reference Range Interpretation Comments LIPASE (test code = 3337315590) 97 U/L 0-220 Lab Interpretation (test code = Normal 98776-2) [facility] [id number] 22:34:52 Test Item Value Reference Range Interpretation [...] (test code = 76.8 fL 39.0-49.9 H 92825-0) RDW-CV (test code = 22.1 % 12.0-15.5 H 788-0) PLT (test code = See_Comment [Automated 777-3) message] The sy stem which generated this result transmitted reference range : 166 - 358 10*3/ ?L. The reference r stefanie was not used to interpret this result as normal/abnormal . MPV (test code = 12.4 fL 9.5-12.9 49992-1) NRBC/100 WBC (test See_Comment [Automat ed code = 9782603384) message] The system which generated this result transmitted reference range : 0.0 - 10.0 /100 WBCs. The refer ence range was not u sed to interpret th is result as normal/abnormal . NRBC x10^3 (test code See_Comment [Auto mated = 0510868287) message] The s ystem which generated this result transmitted reference range : 10*3/?L. The reference range was not used to interpret this result as normal/abnormal . GRAN MAT (NEUT) % 63.1 % (test code = 770-8) IMM GRAN % (test code 1.30 % = 8760064282) LYMPH % (test code = 26.3 % 736-9) MONO % (test code = 6.4 % 5905-5) EOS % (test code = 2.1 % 713-8) BASO % (test code = 0.8 % 706-2) GRAN MAT x10^3(ANC) 2.45 10*3/uL 1.88-7.09 (test code = 2022202014) IMM GRAN x10^3 (test 0.05 10*3/uL 0.00-0.06 code = 9032752495) LYMPH x10^3 (test code 1.02 10*3/uL 1.32-3.29 L = 731-0) MONO x10^3 (test code 0.25 10*3/uL 0.33-0.92 L = 742-7) EOS x10^3 (test code = 0.08 10*3/uL 0.03-0.39 711-2) BASO x10^3 (test code 0.03 10*3/uL 0.01-0.07 = 704-7) Lab Interpretation Abnormal (test code = 57700-4) [facility] [id number] 22:15:00 Test Item Value Reference Range Interpretation Comments POCT PREG (test code = 1605) NEgative On board controls acceptable with C pass Line (test code = 3574) POCT PREG LOT # (test code = 357) [id number] POCT PREG TEST DATE (test code = 3576) Lab Interpretation (test code = Normal 02958-6) [facility] URINALYSIS, [id number] 16:16:00 Test Item Value Reference Range Interpretation [...] APPEAR (test code slightly cloudy = 3267) [facility] URINALYSIS, [id number] 16:16:00 Test Item Value Reference Range Interpretation [...] APPEAR (test code slightly cloudy = 3267) [facility] HEMOGLOBIN A1C [id number] 14:54:00 Test Item Value Reference Range Interpretation Comments POCT HBA1C (test code = 4548-4) 4.6 % 4-6 [facility] HEMOGLOBIN A1C [id number] 14:54:00 Test Item Value Reference Range Interpretation Comments POCT HBA1C (test code = 4548-4) 4.6 % 4-6 [facility] GLUCOSE (AUTOMATED)2022-03-02 13:11:54 Test Item Value Reference Range Interpretation Comments POCT GLU (test code = 3038625265) 137 mg/dL 70-110 H Lab Interpretation (test code = Abnormal 86980-6) [facility] GLUCOSE (AUTOMATED)2022-03-02 13:11:54 Test Item Value Reference Range Interpretation Comments POCT GLU (test code = 3677453212) 137 mg/dL 70-110 H Lab Interpretation (test code = Abnormal 40428-4) [facility] [id number] 12:59:00 Test Item Value Reference Range Interpretation Comments POCT Glu (age>30days) (test code = 137 mg/dL 70-110 A 3342) Lab Interpretation (test code = Abnormal 90132-9) [facility] [id number] 12:59:00 Test Item Value Reference Range Interpretation Comments POCT Glu (age>30days) (test code = 137 mg/dL 70-110 A 3342) Lab Interpretation (test code = Abnormal 66292-6) [facility] [id number] 12:48:00 Test Item Value Reference Range Interpretation Comments POCT PREG (test code = 1605) Negative On board controls acceptable with Yes C Line (test code = 3574) POCT PREG LOT # (test code = 3575) [id number] POCT PREG TEST DATE (test 2023-06-25 code = 3576) [facility] [id number] 12:48:00 Test Item Value Reference Range Interpretation Comments POCT PREG (test code = 1605) Negative On board controls acceptable with Yes C Line (test code = 3574) POCT PREG LOT # (test code = 3575) [id number] POCT PREG TEST DATE (test 2023-06-25 code = 3576) [facility]
--- NOTE | 2022-11-10 02:37 | ER ---
Nurse's Notes [facility] Name: Linda Rahman Age: 47 yrs Sex: Female : 1975 Arrival Date: 11/09/2022 Time: 21:31 Bed 12 Private MD: Diagnosis: Abdominal pain, unspecified;Other injury of muscle and tendon of back wall of thorax;Other injury of muscle and tendon of front wall of thorax;Acute upper respiratory infection, unspecified Presentation: 11/09 21:32 Chief complaint: Patient states: right rib pain after fall 1month ago. Coronavirus kl screen: Vaccine status: Patient reports receiving the 2nd dose of the covid vaccine. Ebola Screen: Patient negative for fever greater than or equal to 101.5 degrees Fahrenheit, and additional compatible Ebola Virus Disease symptoms. Initial Sepsis Screen: Does the patient meet any 2 criteria? No. Patient's initial sepsis screen is negative. Does the patient have a suspected source of infection?. Risk Assessment: Do you want to hurt yourself or someone else? Patient reports no desire to harm self or others. 21:32 Method Of Arrival: EMS: [facility] 21:32 Acuity: HOLLEY 4 kl Triage Assessment: 21:35 General: Appears in no apparent distress. Behavior is calm, cooperative. Pain: kl Complains of pain in chest, anterior aspect of right lateral abdomen, left lower quadrant and abdomen diffusely. 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 - Social history:: Smoking status: Patient denies any tobacco usage or history of. - Family history:: not pertinent. Screenin/15 02:48 [facility] ED Fall Risk Assessment (Adult) History of falling in the last 3 months, kl including since admission No falls in past 3 months (0 pts) Confusion or Disorientation No (0 pts) Intoxicated or Sedated No (0 pts) Impaired Gait No (0 pts) Mobility Assist Device Used No (0 pt) Altered Elimination No (0 pt) Score/Fall Risk Level 0 - 2 = Low Risk Oriented to surroundings, Maintained a safe environment. Abuse screen: Denies threats or abuse. Nutritional screening: No deficits noted. Tuberculosis screening: No symptoms or risk factors identified. Assessment: 00:15 General: Appears in no apparent distress. Behavior is calm, cooperative. Pain: Complains of pain in anterior aspect of left lateral abdomen and posterior aspect of left lateral abdomen and abdomen Pain currently is 9 out of 10 on a pain scale. Neuro: No deficits noted. Cardiovascular: No deficits noted. Respiratory: No deficits noted. GI: No deficits noted. : No deficits noted. No signs and/or symptoms were reported regarding the genitourinary system. Vital Signs: 11/09 21:32 BP 124 / 88; Pulse 104; Resp 18; Temp 98.3; Weight 99.79 kg (R); Height 5 ft. 2 in. kl (157.48 cm); Pain 9/10; 11/10 00:15 BP 124 / 77; Pulse 64; Resp 17 S; kl 01:30 BP 129 / 78; Pulse 6; kl 02 21:32 Body Mass Index 40.24 (99.79 kg, 157.48 cm) ED Course: 11/09 21:31 Patient arrived in ED. kl 21:35 Triage completed. kl 21:42 Young Hernandez MD is Attending Physician. [facility] [place] 11/10 02:48 Patient has correct armband on for positive identification. 02:48 No provider procedures requiring assistance completed. Patient did not have IV access during this emergency room visit. Administered Medications: No medications were administered Medication: 02:48 VIS not applicable for this client. Outcome: 02:37 Discharge ordered by . [facility] [place] 02:48 Discharged to home ambulatory. 02:48 Condition: stable 02:48 Discharge instructions given to patient, Instructed on discharge instructions, follow up and referral plans. medication usage, Demonstrated understanding of instructions, follow-up care, medications, Prescriptions given X 2. 02:49 Patient left the ED. kl Signatures: Lucila Wren RN RN kl Anderson, Corey, MD MD cha
--- NOTE | 2022-11-10 02:37 | EDPHYS ---
Physician Documentation [facility] Name: Linda Rahman Age: 47 yrs Sex: Female : 1975 Arrival Date: 11/09/2022 Time: 21:31 Bed 12 Private MD: ALEXA Physician Young Hernandez HPI: 11/10 01:42 This 47 yrs old Female presents to ER via EMS with complaints of left side yuridia pain x 1 month. 01:42 The patient presents with abdominal pain abdominal distention. Onset: The yuridia symptoms/episode began/occurred 1 month(s) ago. The symptoms do not radiate. Associated signs and symptoms: Pertinent positives: pain with rom. The symptoms are described as dull. Modifying factors: The symptoms are alleviated by remaining still, the symptoms are aggravated by movement, pressure. Severity of pain: At its worst the pain was mild in the emergency department the pain is unchanged. The patient has experienced similar episodes in the past, a few times. 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 - Social history:: Smoking status: Patient denies any tobacco usage or history of. - Family history:: not pertinent. ROS: 11/10 01:42 Constitutional: Negative for fever, chills, and weight loss, Eyes: Negative for injury, yuridia pain, redness, and discharge, ENT: Negative for injury, pain, and discharge, Neck: Negative for injury, pain, and swelling, Cardiovascular: Negative for chest pain, palpitations, and edema, Respiratory: Negative for shortness of breath, cough, wheezing, and pleuritic chest pain, Back: Negative for injury and pain, : Negative for injury, bleeding, discharge, and swelling, MS/Extremity: Negative for injury and deformity, Skin: Negative for injury, rash, and discoloration, Neuro: Negative for headache, weakness, numbness, tingling, and seizure, Psych: Negative for depression, anxiety, suicide ideation, homicidal ideation, and hallucinations, Allergy/Immunology: Negative for hives, rash, and allergies, Endocrine: Negative for neck swelling, polydipsia, polyuria, polyphagia, and marked weight changes, Hematologic/Lymphatic: Negative for swollen nodes, abnormal bleeding, and unusual bruising. Abdomen/GI: Positive for abdominal pain, of the posterior aspect of left lateral abdomen and anterior aspect of left lateral abdomen. Exam: 01:42 Constitutional: This is a well developed, well nourished patient who is awake, alert, yuridia and in no acute distress. Head/Face: Normocephalic, atraumatic. Eyes: Pupils equal round and reactive to light, extra-ocular motions intact. Lids and lashes normal. Conjunctiva and sclera are non-icteric and not injected. Cornea within normal limits. Periorbital areas with no swelling, redness, or edema. ENT: Nares patent. No nasal discharge, no septal abnormalities noted. Tympanic membranes are normal and external auditory canals are clear. Oropharynx with no redness, swelling, or masses, exudates, or evidence of obstruction, uvula midline. Mucous membranes moist. Neck: Trachea midline, no thyromegaly or masses palpated, and no cervical lymphadenopathy. Supple, full range of motion without nuchal rigidity, or vertebral point tenderness. No Meningismus. Chest/axilla: Normal chest wall appearance and motion. Nontender with no deformity. No lesions are appreciated. Cardiovascular: Regular rate and rhythm with a normal S1 and S2. No gallops, murmurs, or rubs. Normal PMI, no JVD. No pulse deficits. Respiratory: Lungs have equal breath sounds bilaterally, clear to auscultation and percussion. No rales, rhonchi or wheezes noted. No increased work of breathing, no retractions or nasal flaring. Back: No spinal tenderness. No costovertebral tenderness. Full range of motion. Female : Normal external genitalia. Skin: Warm, dry with normal turgor. Normal color with no rashes, no lesions, and no evidence of cellulitis. MS/ Extremity: Pulses equal, no cyanosis. Neurovascular intact. Full, normal range of motion. Neuro: Awake and alert, GCS 15, oriented to person, place, time, and situation. Cranial nerves II-XII grossly intact. Motor strength 5/5 in all extremities. Sensory grossly intact. Cerebellar exam normal. Normal gait. 01:42 Abdomen/GI: Inspection: distension, Bowel sounds: normal, Palpation: mild abdominal tenderness, in the posterior aspect of left lateral abdomen and anterior aspect of left lateral abdomen. Vital Signs: 11/09 21:32 BP 124 / 88; Pulse 104; Resp 18; Temp 98.3; Weight 99.79 kg (R); Height 5 ft. 2 in. kl (157.48 cm); Pain 9/10; 11/10 00:15 BP 124 / 77; Pulse 64; Resp 17 S; kl 01:30 BP 129 / 78; Pulse 6; kl 11/09 21:32 Body Mass Index 40.24 (99.79 kg, 157.48 cm) kl MDM: 11/09 21:42 Patient medically screened. yuridia 11/10 01:46 Differential diagnosis: bowel obstruction, coronary artery disease, Cholelithiasis, GI yuridia Bleed, Menorrhagia, myocardia ischemia or infarction, non-specific abd pain, Perf. Duodenal Ulcer, Peritonitis, Ureterolithiasis, urinary tract infection. Data reviewed: vital signs, nurses notes, old medical records, lab test result(s), radiologic studies, CT scan. Consideration of Admission/Observation Escalation of care including admission/observation considered. Test considered but Not performed: Ultrasound right usg. Care significantly affected by the following chronic conditions: asthma, chronic abd pain. 11/09 21:44 Order name: CT Chest, Abdomen, Pelvis - W/Contrast yuridai 11/09 21:44 Order name: INCENTIVE SPIROMETRY yuridia Administered Medications: No medications were administered Disposition Summary: 11/10/22 02:37 Discharge Ordered Location: Home yuridia Problem: new yuridia Symptoms: have improved yuridia Condition: Stable yuridia Diagnosis - Abdominal pain, unspecified yuridia - Other injury of muscle and tendon of back wall of thorax yuridia - Other injury of muscle and tendon of front wall of thorax yuridia - Acute upper respiratory infection, unspecified yuridia Followup: yuridia - With: Private Physician - When: 2 - 3 days - Reason: Recheck today's complaints, Continuance of care, Re-evaluation by your physician Discharge Instructions: - Discharge Summary Sheet yuridia - Abdominal Pain, Adult yuridia - Musculoskeletal Pain yuridia - How to Use an Incentive Spirometer yuridia Forms: - Medication Reconciliation Form yuridia - Thank You Letter yuridia - Antibiotic Education yuridia - Prescription Opioid Use yuridia Prescriptions: - Zithromax Z-Malik 250 mg Oral Tablet - take 1 tablet by ORAL route as directed for 5 days Day 1 - take two (2) tablets [facility] one time. Day 2, 3, 4 , 5 take one (1) tablet once daily.; 6 tablet; Refills: 0, Product Selection Permitted - Cyclobenzaprine 5 mg Oral Tablet - take 1 tablet by ORAL route 3 times per day As needed; 15 tablet; Refills: 0, yuridia Product Selection Permitted Signatures: Dispatcher [employer] Lucila Benavidez, Young Gonzales RN, MD MD cha Corrections: (The following items were deleted from the chart) 02:32 11/09 21:45 CBC+H.LAB.BRZ ordered. [facility] 11/10 02:32 11/09 21:45 COMPREHENSIVE METABOLIC PANEL+C.LAB.BRZ ordered. [facility] 11/10 02:40 11/09 21:44 Urine Dipstick-Ancillary ordered. yuridia andres 11/10 02:40 11/09 21:44 Urine Test ordered. yuridia andres
[2022-11-10] MEDS ORDERED: AZITHROMYCIN 250 MG TAB ONE (02:48)
[2022-11-10 03:40] VITALS: TEMP 98.3
[2022-11-10 03:42] VITALS: BP 129/78
--- NOTE | 2022-11-10 16:14 | RAD REPORT ---
EXAM DESCRIPTION: CT - Chest Abd Pelvis Wo Con - 11/10/2022 5:31 am CLINICAL HISTORY: CHEST PAIN COMPARISON: 10/15/2022 TECHNIQUE: CT of the chest, abdomen and pelvis performed without IV contrast. Suboptimal evaluation of the soft tissues, solid organs, and vasculature due to lack of IV contrast. This exam was performe d according to our departmental dose-optimization program, which includes automated exposure control, adjustment of the mA and/or kV according to patient size and/or use of iterative reconstruction tech nique. FINDINGS: Chest: Thyroid: No abnormalities of the visualized thyroid. Great Vessels: Great vessels have normal anatomic configuration. Thoracic Aorta: No abnormalities of the thoracic aorta identified. Pulmonary arteries: The main pulmonary artery is not dilated. Heart: No cardiomegaly, significant pericardial effusion, or coronary artery atherosclerosis Lymph Nodes: No enlarged mediastinal lymph nodes identified. Esophagus: No abnormalities of the esophagus identified Other: No additional findings. Lungs: Respiratory motion artifact. Mild bibasilar atelectasis. Mild patchy perihilar opacities. Low lung volumes. Elevation the right hemidiaphragm. Pleura: No pleural effusion or pneumothorax. Trachea/Airways: No abnormalities of the visualized trachea or airways. Abdomen: Liver: Hepatomegaly. Gallbladder: Prior cholecystectomy. Spleen, Pancreas, and Adrenal Glands: Severe splenomegaly. The pancreas and adrenal glands are unre markable. Kidneys: No hydronephrosis or obstructing ureteral calculus. Vasculature: The aorta and IVC have normal caliber and position. Stomach: The stomach and duodenum have normal course. Other: No free intraperitoneal air. No free fluid or lymphadenopathy. Small fat-containing umbili cipriano hernia. Pelvis: Bladder: Urinary bladder is unremarkable. Bowel: No dilated loops of large or small bowel. Moderate amount of stool. Appendix: Normal appendix. Pelvis: Uterus is not enlarged. Bones: No destructive bone lesions identified. Osteopenia. IMPRESSION: 1. Mild patchy perihilar opacities. These findings could be seen with bilateral pneumo patrica process. 2. Severe splenomegaly. 3. Hepatomegaly. 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 The interpreting radiologist is fully responsible for the content of the report.
== END 2022-11-10 02:49 | disposition home or self-care (01) ==
LOC: ER 21:13
DX: S29.092A Other injury of muscle and tendon of back wall of thorax, initial encounter (principal); S29.091A Other injury of muscle and tendon of front wall of thorax, initial encounter; J06.9 Acute upper respiratory infection, unspecified; Z88.1 Allergy status to other antibiotic agents; Z88.5 Allergy status to narcotic agent; Z88.8 Allergy status to other drugs, medicaments and biological substances
CPT/HCPCS: 71250; 74176

== ENCOUNTER 2022-12-08 23:31 | Emergency (ER) | payer OTHER ==
[2022-12-09 00:17] LABS: Urine Blood Negative (Negative); Urine Glucose Negative (Negative); Urine Protein Negative (Negative)
[2022-12-09] MEDS ORDERED: MORPHINE 4 MG/ML SYR ONE (00:17)
[2022-12-09] MEDS ORDERED: ONDANSETRON 4 MG/2 ML VIAL ONE (00:17)
[2022-12-09] MEDS ORDERED: NA CHLORIDE 0.9% 1,000 ML ONE (00:17)
--- OUTSIDE RECORDS SUMMARY | 2022-12-09 00:28 | XMS REPORT | Continuity of Care Document ---
:1975 Author Organization [facility] t Address [address] [address] [place] [address] Care Team Providers Name Role Phone TRAY JOLLY Primary Care Physician Unavailable CECILE MÁRQUEZ Attending Clinician Unavailable TRAY JOLLY Attending Clinician Unavailable NAV ANTONIO Attending Clinician Unavailable MARIBEL CORNELIUS Attending Clinician Unavailable AUBRIE SCHAEFFER Attending Clinician Unavailable Nisa HOLLINS, Andrea Adams Attending Clinician Neris Estrada Attending Clinician Unavailable Nav Antonio MD Attending Clinician Doctor Unassigned, [place] Attending Clinician Unavailable Maribel Joy Attending Clinician Cecile Márquez MD Attending Clinician Saira FUCHS MD, Bon [place] Attending Clinician Scot [facility] Attending Clinician Tray Jolly MD Attending Clinician SHENA PEREA Attending Clinician Unavailable Shena Perea DO Attending Clinician Van HOLLINS, Elisha Attending Clinician ELISHA ARAUJO Attending Clinician Unavailable PANTERA CHAWLA Attending Clinician Unavailable Ashlie HOLLINS, Lisandro Attending Clinician [phone] Jose Antonio HOLLINS, Livia Campos Attending Clinician Melanie HOLLINS, Pantera Rider Attending Clinician GREG JACKSON Attending Clinician Unavailable Kvng Stark RN Attending Clinician Unavailable Kemal Hackett Attending Clinician Geovanny Willis MD Attending Clinician Deshaun Saavedra MD Attending Clinician Vern Bernardo DO Attending Clinician [phone], [facility] Attending Clinician Unavailable MIROSLAVA ELIZABETH Attending Clinician Unavailable LAYNE YI Attending Clinician Unavailable Beckie Lopez Attending Clinician [phone] Layne Yi MD Attending Clinician BECKIE WALSH Attending Clinician Unavailable DESTINY ONEILL Attending Clinician Unavailable Destiny Oneill MD Attending Clinician Melony Irwin RN Attending Clinician Unavailable KAMILLA ZHAO Attending Clinician Unavailable Kamilla Tena Attending Clinician AN DE LA TORRE Attending Clinician Unavailable STELLA WORLEY Attending Clinician Unavailable STELLA WORLEY Attending Clinician Unavailable Ry Edge Attending Clinician Unavailable DAPHNEY SÁNCHEZ Attending Clinician Unavailable BON AGUILAR Attending Clinician Unavailable VIK OLIVEIRA Attending Clinician Unavailable Atul HOLLINS, Sendil K.H. Attending Clinician ISAC BARR Attending Clinician Unavailable Sheri Berrios MD Attending Clinician SHERI BERRIOS Attending Clinician Unavailable Vik Oliveira MD Attending Clinician CAPRICE HENRIQUEZ Attending Clinician Unavailable Young Zarate RN Attending Clinician Unavailable Isac Barney Attending Clinician An De La Torre MD Attending Clinician Miroslava Elizabeth MD Attending Clinician Jessie MAGAÑASW, Genesis Shah Attending Clinician GABRIELLA SALAS Attending Clinician Unavailable ANDREA PAULA Attending Clinician Unavailable Princess NI, Daphney Attending Clinician Gramm Corry JOHNS Attending Clinician CORRY COON Attending Clinician Unavailable [...] Clinician Unavailable LAILA ORELLANA Attending Clinician Unavailable Vineet Prasad MD Attending Clinician VINEET PRASAD Attending Clinician Unavailable CHELA BLANCO Attending [...] Clinician Unavailable BALJIT CURRY Attending Clinician Unavailable DORITA MORE Attending Clinician Unavailable FABRICIO DOSS Attending Clinician Unavailable CL DEGROOT Attending Clinician Unavailable CECILE MÁRQUEZ Admitting Clinician Unavailable Neris Estrada Admitting Clinician Unavailable Physician, No Primary or Family Admitting Clinician UnavailLIVIA Birch BETH Admitting Clinician Unavailable Deshaun Saavedra MD Admitting Clinician DESHAUN SAAVEDRA Admitting Clinician Unavailable STELLA WORLEY Admitting Clinician Unavailable Cecile Márquez MD Admitting Clinician AN DE LA TORRE Admitting Clinician Unavailable DESTINY ONEILL Admitting Clinician Unavailable Eladia Admitting Clinician Unavailable CAPRICE HENRIQUEZ Admitting Clinician Unavailable Payers Payer Name Policy Type Policy Number Effective Date Expiration Date [facility] D[facility] [id number] 2021 COMP CHOICE PPO DSNP 00:00:00 [facility] [place] STAR PLUS [id number] 2021 00:00:00 [place]ID [place] [id number] 2016 00:00:00 [employer] [place] [place] [id number] 2022 00:00:00 [employer] [facility] [id number] 2022 HMO 00:00:00 [facility] STAR [id number] 2022 PLAN 00:00:00 [facility] DAYHR8 2021 (MEDICARE 00:00:00 REPLACEMENT HMO) [employer] [id number] 2020 BEHAVIORAL SOLUTIONS 00:00:00 Problems Condition Condition Condition Status Onset [...] rs rhinitis rhinitis 24 ity of 00:00: [address] Branch (HFpEF) (HFpEF) Disease Active Univers heart heart 10-18 ity of failure failure 00:00: [place] with with 00 Medical preserved preserved Bran ch ejection ejection fraction fraction Diarrhea, Diarrhea, Disease Active Uni vers unspecifie unspecifie 1-20 it y of d type d type 00:00: Medical Branch Constipati Constipati Disease Active U [...] Disease Active Univers 1-20 ity of 00:00: [place] [facility] Nausea Nausea Disease Active Univers 1-20 ity of 00:00: Medical Branch Gastritis Gastritis Disease Active Uni vers without without 1-20 ity of bleeding, bleeding, 00:00: Laura forrester unspecifie unspecifie 00 Me dical d d Branch chronicity chronicity , , unspecifie unspecifie d d gastritis gastritis type type Overflow Overflow Disease Active Unive rs diarrhea diarrhea 1-20 ity of 00:00: [place] [facility] Allergy, Allergy, Disease Active 2021-09 Unive rs subsequent subsequent 2-09 it y of encounter encounter 00:00: Laura forrester 00 Medical Branch Poor Poor Disease Active 2021-09 Univers dentition dentition 2-09 ity of requiring requiring 00:00: [place] forrseter referral referral 00 Medica l to to Branch dentistry dentistry Mouth Mouth Disease Active 2021-09 Univers breathing breathing 2-09 ity of 00:00: Medical Branch Weakening Weakening Disease Active Uni vers of pelvic of pelvic 4-08 ity of fundus fundus 00:00: [place] [facility] 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 Added automatic ally from request for surgery [id number] Chronic Chronic Disease Active Overview: Univ ers superficia superficia 4-05 Formattin ity of l l 00:00: g of this [place] gastritis gastritis 00 note Medi cipriano without without might be Branch bleeding bleeding different from the original. Added automatic ally from request for surgery [id number] Hyperplast Hyperplast Disease Active Overview : Univers ic polyps ic polyps 4-05 Formattin i ty of of stomach of stomach 00:00: g of this note Medical might be Branch different from the original. Added automatic ally from request for surgery [id number] Indigestio Indigestio Disease Active 2020-09 Overview : Univers n n 2-15 Formattin ity of 00:00: g of this note Medical might be Branch different from the original. Added automatic ally from request for surgery [id number] Bloating Bloating Disease Active 2020-09 Overview: Un jerrod 2-15 Formattin ity of 00:00: g of this 00 note Medical might be Branch different from the original. Added automatic ally from request for surgery [id number] Dental Dental Disease Active Univers caries caries 5-20 ity of 00:00: [place] [facility] Chronic Chronic Disease Active Univers dental dental 5-20 ity of pain pain 00:00: Medical Branch Macrogloss Macrogloss Disease Active U nivers ia ia 5-20 ity of 00:00: Medical [...] ity of right right 00:00: Medical Branch Gastroesop Gastroesop Disease Active 2016-09 [...] 5-23 ity of bleeding bleeding 00:00: [place] [facility] Branch Submucous Submucous Disease Active Uni vers leiomyoma leiomyoma 5-23 ity of of uterus [place] [address] [place] [address] Branch NSAID NSAID Disease Active Univers long-term long-term 2-16 ity of use use 00:00: [place] 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 00:00[place] disorder, [place], [address] [place] [address] in in Branch remission remission Hypothyroi Hypothyroi Disease Active U nivers d d 2-05 ity of 00:00: [place] [facility] Essential Essential Disease Active Uni vers hypertensi hypertensi 2-05 it y of on, benign on, benign 00:[place] [facility] Well woman Well woman Disease Active U nivers exam exam 2-05 ity of 00:00: [place] [facility] Chest pain Chest pain Disease Active U nivers 9-13 ity of 00:: [address] Peripheral Peripheral Disease Active U nivers neuropathy neuropathy it y of [facility] 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 ity of [facility] PCOS PCOS Disease Active Univers (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) [facility] Branch Allergies, Adverse Reactions, Alerts Allergy Allergy Status Severity Reaction(s) Onset Inactive Treating Comm ents Source Name Type Date Date Clinician tomato FA Active [place] SNEEZING [facility] 2-25 Clear 00:00: [facility] ziprasid DA Active SV HALLUCINATIO HC A one NS 2-25 Clear 00:00: [facility] lorazepa DA Active SV SWELLING [facility] m 2-25 Clear 00:00: [facility] codeine DA Active [place] ITCHING [facility] 2-25 Clear 00:00: [place] [facility] amoxicil DA Active [place] HIVES [facility] helen 2-25 Clear 00:00: [place] [facility] meperidi DA Active U UNKNOWN [facility] ne 2-25 Clear 00:00: [facility] diphenhy DA Active [place] SWELLING [facility] dramine 2-25 Clear 00:00: [place] [facility] meclizin DA Active SV ANAPHYLAXIS [facility] e 2-25 Clear 00:00: [place] [facility] meperidi DA Active U UNKNOWN [facility] ne [address] 00:00: d [place] ziprasid DA Active SV HALLUCINATIO HC A one NS 11-19 [place] 00:00: d [place] Milk Propensi Active Other - See sneeze Uni vers ty to comments 05-09 ity of adverse 00:00: [place] reaction Medical s Branch MILK DRUG Active Other-Cmnt Univer s INGREDI 05-09 ity of 00:00: [place] [facility] Tomato Propensi Active Other - See Tomato Uni vers ty to comments 04-03 source ity of adverse 00:00: reportedl [place] reaction 00 y causes Medica l s excessive Branch sneezing. But pt still eats it. TOMATO DRUG Active Low Other-Cmnt 0 Univer s INGREDI 04-03 ity of 00:00: [place] 00 Medical Branch CODEINE Allergy Active Low Itching 2018-[address] [facility] [facility] 00:[facility]: Medical 00 [place] Codeine Drug Active Itching 2018-[address] Allergy 1-17 [facility] 00:[facility]: Medical 00 Center Codeine Propensi Active Itching 2018-0 Univer s ty to 1-17 ity of adverse 00:00: [place] reaction 00 Medical s Branch CODEINE DRUG Active Low ITCHING 2018-0 Univers INGREDI 1-17 ity of 00:00: [place] 00 Medical Branch LORAZEPA Allergy Active High Swelling 2016- [facility] 00:[facility] Medical 00 Center Lorazepa Drug Active Swelling 2016- Hard to [facility] Allergy 0-02 swallow [facility] 00:00: Medical 00 [place] Lorazepa Propensi Active Swelling 2016- Hard to Uni vers m ty to [...] Allergy Active High Hives 2014-[address] [facility] [facility]EN 9-04 [facility] 00:00: Medical 00 Center MEPERIDI Allergy Active High 2014-[address] [facility] [facility] HCL 9-04 [facility] 00:00: Medical 00 Center ZIPRASID Allergy Active High Hives 2014-[address] [facility] ONE HCL 9-04 [facility] 00:00: Medical 00 Center Meperidi Drug Active Severe 2015-[address] [facility] Hcl Allergy 05-30 reaction( [facility] 00:00: s): Medical 00 [facility] tions Ziprasid Drug Active Hives [facility] one Hcl Allergy 05-30 [facility] 00:[facility]: Medical 00 Center Amoxicil Drug Active Hives [address] [facility] [facility]en Allergy 05-30 [facility] 00:00: Medical 00 Center Amoxicil Propensi Active Hives 2014-0 Univer s helen ty to 05-30 ity of adverse 00:00: [...] Medical Branch AMOXICIL DRUG Active High Hives 2014-0 Univers HELEN INGREDI 05-30 ity of 00:00: [place] 00 Medical Branch Social History Social Habit Start Date Stop Date Quantity Comments Source History SDOH [facility] Alcohol Std Drinks Medica l Center History SDOH [facility] Alcohol Binge Medical Navin ter History SDOH [facility] Alcohol Comment Medical C enter History SDOH Social Unive rsity of [facility] Med ical Together Branch History SDOH Social Unive rsity of [facility] Medical Branch History SDOH Social Unive rsity of [facility] Medical Membership Branch History SDOH Social Unive rsity of [facility] Medical Meetings Branch Exposure to 2022-11-08 2022-11-18 Not sure University of SARS-CoV-2 (event) 00:00:00 08:06:00 [facility] Tobacco use and 2022-10-22 2022-10-[address] [facility] kes exposure 00:00:00 00:00:00 Medical Center Alcohol intake 2022-10-22 2022-10-[address] [facility] 00:00:00 00:00:00 non-drinker Medical Cente r (finding) History SDAR 2022-10-22 2022-10-[address] [facility] Alcohol Frequency 00:00:00 00:00:00 Medical Center History SDAR Social 2022-10-19 2022-10-19 5 Unive rsity of Connections Phone 00:00:00 00:00:00 [facility] Branch History SDOH Social 2022-10-19 2022-10-19 7 Unive rsity of Connections Living 00:00:00 00:00:00 [place] [facility] History SDAR 2022-10-19 2022-10-19 0 University o f Physical Activity 00:00:00 00:00:00 [facility] DPW Branch History SDAR 2022-10-19 2022-10-19 0 University o f Physical Activity 00:00:00 00:00:00 [facility] MPS Branch History SDAR 2022-10-19 2022-10-19 4 University o f Financial 00:00:00 00:00:00 [facility] Branch History SDAR Food 2022-10-19 2022-10-19 1 Univers ity of Worry 00:00:00 00:00:00 [facility] Branch History SDAR Food 2022-10-19 2022-10-19 1 Univers ity of Scarcity 00:00:00 00:00:00 [facility] Branch History SDAR 2022-10-19 2022-10-19 2 University o f Transport Med 00:00:00 00:00:00 [place] Medic al Branch History SDAR 2022-10-19 2022-10-19 2 University o f Transport Non-Med 00:00:00 00:00:00 [facility] Tobacco Comment 2022-06-17 2022-06-17 10 years ago Univers ity of 00:00:00 00:00:00 [facility] Cigarettes smoked 2022-06-17 2022-06-17 Univers ity of current (pack per 00:00:00 00:00:00 [facility] ) - Reported Branch Cigarette 2022-06-17 2022-06-17 University of pack-years 00:00:00 00:00:00 [facility] History of tobacco 1982-10-20 2007-10-20 Cigarette Smoker University of use 00:00:00 00:00:00 [facility] Sex [birth year] At [birth year] LORENZO [place] 00:00:00 00:00:00 Medical Center Smoking Status Start Date Stop Date Source Never smoker [facility] Ex-smoker 2022-06-17 00:00:00 2022-06-17 00:00:00 [facility] Medications Ordered Filled Start Stop Current Ordering Indication Dosage Frequency Signature Comments Components Source Medication Medication Date Date Medication? Clinician (SIG) Name Name PREGABALIN Yes [id number] TAKE 1 Univers 150 mg 3-07 CAPSULE BY ity of capsule 00:00: MOUTH [place] 00 THREE Medical TIMES Branch DAILY mirabegron 0 Yes [id number] 50mg Take 1 Univers (MYRBETRIQ) 2-22 tablet by ity of 50 mg 00:00: mouth in [place] tablet 00 the Medical morning. Branch mirabegron 0 Yes [id number] 50mg Take 1 Univers (MYRBETRIQ) 2-22 tablet by ity of 50 mg 00:00: mouth in [place] tablet 00 the Medical morning. Branch mirabegron 0 Yes [id number] 50mg Take 1 Univers (MYRBETRIQ) 2-22 tablet by ity of 50 mg 00:00: mouth in [place] tablet 00 the Medical morning. Branch mirabegron 0 Yes [id number] 50mg Take 1 Univers (MYRBETRIQ) 2-22 tablet by ity of 50 mg 00:00: mouth in [place] tablet 00 the Medical morning. Branch mirabegron 0 Yes [id number] 50mg Take 1 Univers (MYRBETRIQ) 2-22 tablet by ity of 50 mg 00:00: mouth in [place] tablet 00 the Medical morning. Branch CYANOCOBALA 0 Yes [id number] INJECT 1 Univers MIN 1,000 2-07 ML ity of mcg/mL 00:00: INTRAMUSCU [place] injection 00 LARLY Medical EVERY TWO Branch WEEKS semaglutide 2022-0 Yes [id number] Inject Univers (OZEMPIC) 2-07 0.25 mg ity of 0.25 mg or 00:00: [place] the [place] 0.5 mg(2 00 skin Medical mg/1.5 mL) weekly. Branch PnIj CYANOCOBALA Yes [id number] INJECT 1 Univers MIN 1,000 2-07 ML ity of mcg/mL 00:00: INTRAMUSCU [place] injection 00 LARLY Medical EVERY TWO Branch WEEKS semaglutide Yes [id number] Inject Univers (OZEMPIC) 2-07 0.25 mg ity of 0.25 mg or 00:00: under the [place] 0.5 mg(2 00 skin Medical mg/1.5 mL) weekly. Branch PnIj CYANOCOBALA 0 Yes [id number] INJECT 1 Univers MIN 1,000 2-07 ML ity of mcg/mL 00:00: INTRAMUSCU [place] injection 00 LARLY Medical EVERY TWO Branch WEEKS semaglutide Yes [id number] Inject Univers (OZEMPIC) 2-07 0.25 mg ity of 0.25 mg or 00:00: under the [place] 0.5 mg(2 00 skin Medical mg/1.5 mL) weekly. Branch PnIj CYANOCOBALA Yes [id number] INJECT 1 Univers MIN 1,000 2-07 ML ity of mcg/mL 00:00: INTRAMUSCU [place] injection 00 LARLY Medical EVERY TWO Branch WEEKS semaglutide Yes [id number] Inject Univers (OZEMPIC) 2-07 0.25 mg ity of 0.25 mg or 00:00: under the [place] 0.5 mg(2 00 skin Medical mg/1.5 mL) weekly. Branch PnIj CYANOCOBALA 0 Yes [id number] INJECT 1 Univers MIN 1,000 2-07 ML ity of mcg/mL 00:00: INTRAMUSCU [place] injection 00 LARLY Medical EVERY TWO Branch WEEKS semaglutide 0 Yes [id number] Inject Univers (OZEMPIC) 2-07 0.25 mg ity of 0.25 mg or 00:00: under the [place] 0.5 mg(2 00 skin Medical mg/1.5 mL) weekly. Branch PnIj CYANOCOBALA 0 Yes [id number] INJECT 1 Univers MIN 1,000 2-07 ML ity of mcg/mL 00:00: INTRAMUSCU [place] injection 00 LARLY Medical EVERY TWO Branch WEEKS semaglutide 0 Yes [id number] Inject Univers (OZEMPIC) 2-07 0.25 mg ity of 0.25 mg or 00:00: under the [place] 0.5 mg(2 00 skin Medical mg/1.5 mL) weekly. Branch PnIj CYANOCOBALA 0 Yes [id number] INJECT 1 Univers MIN 1,000 2-07 ML ity of mcg/mL 00:00: INTRAMUSCU [place] injection 00 LARLY Medical EVERY TWO Branch WEEKS semaglutide Yes [id number] Inject Univers (OZEMPIC) 2-07 0.25 mg ity of 0.25 mg or 00:00: under the [place] 0.5 mg(2 00 skin Medical mg/1.5 mL) weekly. Branch PnIj CYANOCOBALA Yes [id number] INJECT 1 Univers MIN 1,000 2-07 ML ity of mcg/mL 00:00: INTRAMUSCU [place] injection 00 LARLY Medical EVERY TWO Branch WEEKS semaglutide Yes [id number] Inject Univers (OZEMPIC) 2-07 0.25 mg ity of 0.25 mg or 00:00: under the [place] 0.5 mg(2 00 skin Medical mg/1.5 mL) weekly. Branch PnIj CYANOCOBALA 0 Yes [id number] INJECT 1 Univers MIN 1,000 2-07 ML ity of mcg/mL 00:00: INTRAMUSCU [place] injection 00 LARLY Medical EVERY TWO Branch WEEKS semaglutide 2022-0 Yes [id number] Inject Univers (OZEMPIC) 2-07 0.25 mg ity of 0.25 mg or 00:00: under the [place] 0.5 mg(2 00 skin Medical mg/1.5 mL) weekly. Branch PnIj CYANOCOBALA 2022- Yes [id number] INJECT 1 Univers MIN 1,000 2-07 ML ity of mcg/mL 00:00: INTRAMUSCU [place] injection 00 LARLY Medical EVERY TWO Branch WEEKS semaglutide 2022-0 Yes [id number] Inject Univers (OZEMPIC) 2-07 0.25 mg ity of 0.25 mg or 00:00: under the [place] 0.5 mg(2 00 skin Medical mg/1.5 mL) weekly. Branch PnIj CYANOCOBALA 2022-0 Yes [id number] INJECT 1 Univers MIN 1,000 2-07 ML ity of mcg/mL 00:00: INTRAMUSCU [place] injection 00 LARLY Medical EVERY TWO Branch WEEKS semaglutide 2022-0 Yes [id number] Inject Univers (OZEMPIC) 2-07 0.25 mg ity of 0.25 mg or 00:00: under the [place] 0.5 mg(2 00 skin Medical mg/1.5 mL) weekly. Branch PnIj CYANOCOBALA 2022-0 Yes [id number] INJECT 1 Univers MIN 1,000 2-07 ML ity of mcg/mL 00:00: INTRAMUSCU [place] injection 00 LARLY Medical EVERY TWO Branch WEEKS semaglutide 2022-0 Yes [id number] Inject Univers (OZEMPIC) 2-07 0.25 mg ity of 0.25 mg or 00:00: under the [place] 0.5 mg(2 00 skin Medical mg/1.5 mL) weekly. Branch PnIj polyethylen 2022-0 Yes 17g Q.5D Take 17 [...] 14:26: daily. Medica l 13 Center topiramate 3-0 Yes 50mg Q.5D Take 50 mg C [...] tablet daily with breakfast and dinner. SUMAtriptan 3-0 Yes 50mg Take [address] (IMITREX) 1-30 by mouth [facility] 50 MG 14:26: as needed Medical tablet 13 for Center Headaches or Migraine. busPIRone 2023-0 Yes 20mg Q.5D Take [address] (BUSPAR) 10 1-30 by mouth 2 [facility] kes MG tablet 14:26: (two) Medical 13 times Center daily. metoclopram 2022-0 Yes 10mg Take [address] dariela HCl 1-30 by mouth 4 [facility] (REGLAN) 10 14:26: (four) Medi cipriano MG tablet 13 times Center daily before meals and nightly. montelukast Yes 10mg Take [address] [...] 12 mcg/dose (twelve) diskus hours. inhaler rosuvastati Yes 10mg QD Take [address] n (CRESTOR) 1-30 by mouth Luke s 10 MG 14:26: daily. Medical tablet 13 [place] losartan Yes 50mg Take [address] [...] 14:26: daily. Medica l 13 Center topiramate 2023-0 Yes 50mg Q.5D Take [address] (TOPAMAX) 1-30 by mouth 2 Luke s 25 MG 14:26: (two) Medical tablet 13 times Center daily. polyethylen 2023-0 Yes 17g Q.5D Take [address] e glycol 1-30 by mouth 2 [facility] (GLYCOLAX) 14:26: (two) Medica l 17 gram 13 times Center packet daily. lactulose 2023-0 Yes 30g Q.5D Take [address] (CHRONULAC) 1-30 by mouth 2 [facility] kes 10 gram/15 14:26: (two) Medica l mL (15 mL) 13 times Center solution daily. ondansetron 3-0 Yes 4mg Take 4 mg C HI [...] tablet daily with breakfast and dinner. SUMAtriptan 3-0 Yes 50mg Take [address] (IMITREX) 1-30 by mouth [facility] 50 MG 14:26: as needed Medical tablet 13 for Center Headaches or Migraine. busPIRone 2023-0 Yes 20mg Q.5D Take [address] (BUSPAR) 10 1-30 by mouth 2 [facility] kes MG tablet 14:26: (two) Medical 13 times Center daily. metoclopram 2023-0 Yes 10mg Take [address] dariela HCl 1-30 by mouth 4 [facility] (REGLAN) 10 14:26: (four) Medi cipriano MG tablet 13 times Center daily before meals and nightly. montelukast 2023-0 Yes 10mg Take [address] (SINGULAIR) 1-30 by mouth Luke s 10 mg 14:26: in the Medical tablet 13 morning. Center cyanocobala 2023-0 Yes 1000ug Inject [facility] min [...] gram 13 times Center packet daily. lactulose 3-0 Yes 30g Q.5D Take 30 g [facility] [...] First dose [place] mg 00 on [facility] 10/19/22 at Branch 2100, Until Discontinu ed, Routine lactulose Yes 30mL 30 mL, Univer s (CEPHULAC) 1-25 Oral, BID, ity of solution 30 02:00: First dose [place] mL 00 (after Medical last Branch modificati on) on [facility] 10/19/22 at 2000, Until Discontinu ed, Routine SUMAtriptan 2022- No 50mg 50 mg, Uni vers (IMITREX) 24 24 Oral, ity of tablet 50 20:15: 21:00 ONCE, 1 [place] mg 00 :00 dose, On Medical [facility] Branch 10/19/22 at 1415, Routine NaCl 0.9% 2022- No 500mL at 999 Univ ers (NS) bolus 1-24 01-24 mL/hr, 500 it y of infusion 19:30: 18:59 mL, IV [place] 500 mL 00 :00 Piggyback, Medical ONCE, 1 Branch dose, On Tue10/19/22 at 1330, STAT MULTIVIT Yes Take by [facility] &MINERALS/F 1-24 mouth. ity of ERROUS FUM 17:49: [place] (MULTI 09 Medical VITAMIN Branch ORAL) METHYLCELLU Yes Univer s LOSE (FIBER 1-24 ity of THERAPY 17:49: [place] [facility]) 09 Medical Branch DOCUSATE Yes Take by [facility] s SODIUM 1-24 mouth. ity of (COLACE 17:49: [place] ORAL) [address] [place] [address] Branch vitamin C Yes 1000mg Take 1,000 Univers with derrell 1-24 mg by ity of hips 1,000 17:49: mouth [place] mg tablet [address] [facility] Branch CRANBERRY Yes Take by [facility] rs FRUIT 1-24 mouth ity of EXTRACT 17:49: daily. [place] (CRANBERRY 09 Medical ORAL) Branch MULTIVIT Yes Take by Univer s &MINERALS/F 1-24 mouth. ity of ERROUS FUM 17:49: [place] ([facility] 09 Medical VITAMIN Branch ORAL) METHYLCELLU Yes Univer s LOSE (FIBER 1-24 ity of THERAPY 17:49: Memorial [facility]) [address] [place] [address] Branch DOCUSATE Yes Take by [facility] s SODIUM 1-24 mouth. ity of (COLACE 17:49: [place] ORAL) [address] [place] [address] Branch vitamin C Yes 1000mg Take 1,000 Univers with derrell 1-24 mg by ity of hips 1,000 17:49: mouth [place] mg tablet [address] [facility] Branch CRANBERRY Yes Take by [facility] rs FRUIT 1-24 mouth ity of EXTRACT 17:49: daily. [place] (CRANBERRY 09 Medical ORAL) Branch MULTIVIT Yes Take by Univer s &MINERALS/F 1-24 mouth. ity of ERROUS FUM 17:49: [place] ([facility] 09 Medical VITAMIN Branch ORAL) METHYLCELLU Yes Univer s LOSE (FIBER 1-24 ity of THERAPY 17:49: [facility]) 09 Medical Branch DOCUSATE Yes Take [...] LOSE (FIBER 1-24 ity of THERAPY 17:49: [facility]) Medical Branch DOCUSATE Yes Take by [...] LOSE (FIBER 1-24 ity of THERAPY 17:49: [facility]) Medical Branch DOCUSATE Yes Take by [...] LOSE (FIBER 1-24 ity of THERAPY 17:49: [facility]) Medical Branch DOCUSATE Yes Take by [...] LOSE (FIBER 1-24 ity of THERAPY 17:49: [facility]) Medical Branch DOCUSATE Yes Take by [...] LOSE (FIBER 1-24 ity of THERAPY 17:49: [facility]) Medical Branch DOCUSATE Yes Take by [...] mouth. ity of ERROUS FUM 17:49: [place] ([facility] 09 Medical VITAMIN Branch ORAL) METHYLCELLU [...] mouth. ity of ERROUS FUM 17:49: [place] ([place] [address] Medical VITAMIN Branch ORAL) METHYLCELLU Yes Univer [...] mouth. ity of ERROUS FUM 17:49: [place] ([facility] 09 Medical VITAMIN Branch ORAL) METHYLCELLU [...] LOSE (FIBER 1-24 ity of THERAPY 17:49: [facility]) 09 [facility] Branch DOCUSATE Yes Take by Univer s SODIUM 1-24 mouth. ity of (COLACE 17:49: [place] ORAL) [address] [place] [address] Branch vitamin C Yes 1000mg Take 1,000 Univers with derrell 1-24 mg by ity of hips 1,000 17:49: mouth [place] mg tablet 09 daily. Medical Branch CRANBERRY Yes Take by Unive rs FRUIT 1-24 mouth ity of EXTRACT 17:49: daily. [place] (CRANBERRY 09 Medical ORAL) [place] MULTIVIT Yes Take by Univer s &MINERALS/F 1-24 mouth. ity of ERROUS FUM 17:49: [place] ([facility] 09 Medical VITAMIN Branch ORAL) METHYLCELLU Yes Univer s LOSE (FIBER 1-24 ity of THERAPY 17:49: [facility]) [address] [place] [address] Branch DOCUSATE Yes Take by Univer s SODIUM 1-24 mouth. ity of (COLACE 17:49: [place] ORAL) [address] [place] [address] Branch vitamin C Yes 1000mg Take 1,000 [...] LOSE (FIBER 1-24 ity of THERAPY 17:49: [facility]) Medical Branch DOCUSATE Yes Take by Univer s SODIUM 1-24 mouth. ity of (COLACE 17:49: [place] ORAL) [address] [place] [address] Branch vitamin C Yes 1000mg Take 1,000 Univers with derrell 1-24 mg by ity of hips 1,000 17:49: mouth [place] mg tablet 09 daily. Medical Branch CRANBERRY Yes Take by Unive rs FRUIT 1-24 mouth ity of EXTRACT 17:49: daily. [place] (CRANBERRY 09 Medical ORAL) [place] MULTIVIT Yes Take by Univer s &MINERALS/F 1-24 mouth. ity of ERROUS FUM 17:49: [place] ([place] [address] Medical VITAMIN Branch ORAL) METHYLCELLU Yes Univer s LOSE (FIBER 1-24 ity of THERAPY 17:49: [facility]) [address] [place] [address] Branch DOCUSATE Yes Take by Univer s SODIUM 1-24 mouth. ity of (COLACE 17:49: [place] ORAL) [address] [place] [address] Branch vitamin C Yes 1000mg Take 1,000 Univers with derrell 1-24 mg by ity of hips 1,000 17:49: mouth [place] mg tablet [address] [facility] Branch CRANBERRY Yes Take by Unive rs FRUIT 1-24 mouth ity of EXTRACT 17:49: daily. [place] (CRANBERRY 09 Medical ORAL) [place] MULTIVIT Yes Take by Univer s &MINERALS/F 1-24 mouth. ity of ERROUS FUM 17:49: [place] ([facility] 09 Medical VITAMIN Branch ORAL) METHYLCELLU Yes Univer s LOSE (FIBER 1-24 ity of THERAPY 17:49: [facility]) [address] [place] [address] Branch DOCUSATE Yes Take by Univer s SODIUM 1-24 mouth. ity of (COLACE 17:49: [place] ORAL) [address] [place] [address] Branch vitamin C Yes 1000mg Take 1,000 Univers with derrell 1-24 mg by ity of hips 1,000 17:49: mouth [place] mg tablet 09 daily. Medical Branch CRANBERRY Yes Take by Unive rs FRUIT 1-24 mouth ity of EXTRACT 17:49: daily. [place] (CRANBERRY 09 Medical ORAL) [place] MULTIVIT Yes Take by Univer s &MINERALS/F 1-24 mouth. ity of ERROUS FUM 17:49: [place] (MULTI 09 Medical VITAMIN Branch ORAL) METHYLCELLU Yes Univer s LOSE (FIBER 1-24 ity of THERAPY 17:49: [place] MISC) Medical Branch DOCUSATE Yes Take by Univer s SODIUM 1-24 mouth. ity of (COLACE 17:49: [place] ORAL) [address] [place] [address] Branch vitamin C Yes 1000mg Take 1,000 Univers with derrell 1-24 mg by ity of hips 1,000 17:49: mouth [place] mg tablet 09 daily. Medical Branch CRANBERRY Yes Take by Unive rs FRUIT 1-24 mouth ity of EXTRACT 17:49: daily. [place] (CRANBERRY 09 Medical ORAL) [place] MULTIVIT Yes Take by Univer s &MINERALS/F 1-24 mouth. ity of ERROUS FUM 17:49: [place] ([facility] 09 Medical VITAMIN Branch ORAL) METHYLCELLU Yes Univer s LOSE (FIBER 1-24 ity of THERAPY 17:49: [place] MISC) [address] [place] [address] Branch DOCUSATE Yes Take by Univer s SODIUM 1-24 mouth. ity of (COLACE 17:49: [place] ORAL) [address] [place] [address] Branch vitamin C Yes 1000mg Take 1,000 [...] ity of THERAPY 17:49: [place] MISC) 09 [facility] Branch DOCUSATE Yes Take by Univer s [...] (FIBER 1-24 ity of THERAPY 17:49: [place] [facility]) Medical Branch DOCUSATE Yes Take by Univer [...] mouth. ity of ERROUS FUM 17:49: [place] ([facility] 09 Medical VITAMIN Branch ORAL) METHYLCELLU Yes Univer s LOSE (FIBER 1-24 ity of THERAPY 17:49: [facility]) Medical Branch DOCUSATE Yes Take by [...] mouth. ity of ERROUS FUM 17:49: [place] ([place] [address] Medical VITAMIN Branch ORAL) METHYLCELLU Yes Univer s LOSE (FIBER 1-24 ity of THERAPY 17:49: [facility]) Medical Branch DOCUSATE Yes Take by [...] mouth. ity of ERROUS FUM 17:49: [place] ([facility] 09 Medical VITAMIN Branch ORAL) METHYLCELLU Yes Univer s LOSE (FIBER 1-24 ity of THERAPY 17:49: [facility]) [address] [place] [address] Branch DOCUSATE Yes Take by Univer s SODIUM 1-24 mouth. ity of (COLACE 17:49: [place] ORAL) [address] [place] [address] Branch vitamin C Yes 1000mg Take 1,000 [...] mouth. ity of ERROUS FUM 17:49: [place] ([place] [address] Medical VITAMIN Branch ORAL) METHYLCELLU Yes Univer s LOSE (FIBER 1-24 ity of THERAPY 17:49: [facility]) [address] [place] [address] Branch DOCUSATE Yes Take by Univer s [...] mouth. ity of ERROUS FUM 17:49: [place] ([facility] 09 Medical VITAMIN Branch ORAL) METHYLCELLU Yes Univer s LOSE (FIBER 1-24 ity of THERAPY 17:49: [place] MIS) 09 Medical Branch DOCUSATE Yes [...] LOSE (FIBER 1-24 ity of THERAPY 17:49: [facility]) 09 Medical Branch DOCUSATE Yes Take [...] LOSE (FIBER 1-24 ity of THERAPY 17:49: [facility]) 09 Medical Branch DOCUSATE Yes Take [...] LOSE (FIBER 1-24 ity of THERAPY 17:49: [facility]) [address] [place] [address] Branch DOCUSATE Yes Take by Univer s SODIUM 1-24 mouth. ity of (COLACE 17:49: [place] ORAL) [address] [place] [address] Branch vitamin C Yes 1000mg Take 1,000 Univers with derrell 1-24 mg by ity of hips 1,000 17:49: mouth [place] mg tablet 09 daily. Medical Branch CRANBERRY Yes Take by Unive rs FRUIT 1-24 mouth ity of EXTRACT 17:49: daily. [place] (CRAN[place]ERRY 09 Medical ORAL) [place] MULTIVIT Yes Take by Univer s &MINERALS/F 1-24 mouth. ity of ERROUS FUM 17:49: [place] ([place] [address] Medical VITAMIN Branch ORAL) METHYLCELLU Yes Univer s LOSE (FIBER 1-24 ity of THERAPY 17:49: [facility]) [address] [place] [address] Branch DOCUSATE Yes Take by Univer s SODIUM 1-24 mouth. ity of (COLACE 17:49: [place] ORAL) [address] [place] [address] vitamin C Yes 1000mg Take 1,000 Univers with derrell 1-24 mg by ity of hips 1,000 17:49: mouth [place] mg tablet [address] [facility] Branch CRANBERRY Yes Take by Unive rs FRUIT 1-24 mouth ity of EXTRACT 17:49: daily. [place] (CRANBERRY 09 Medical ORAL) [place] MULTIVIT Yes Take by Univer s &MINERALS/F 1-24 mouth. ity of ERROUS FUM 17:49: [place] ([facility] 09 Medical VITAMIN Branch ORAL) METHYLCELLU Yes Univer s LOSE (FIBER 1-24 ity of THERAPY 17:49: [facility]) [address] [place] [address] Branch DOCUSATE Yes Take by Univer s SODIUM 1-24 mouth. ity of (COLACE 17:49: [place] ORAL) [address] [place] [address] Branch vitamin C Yes 1000mg Take 1,000 [...] (FIBER 1-24 ity of THERAPY 17:49: [place] [facility]) Medical Branch DOCUSATE Yes Take by Univer [...] EXTRACT 17:49: daily. [place] (CRANBERRY Medical ORAL) Branch MULTIVIT Yes Take by Univer s &MINERALS/F 1-24 mouth. ity of ERROUS FUM 17:49: [place] (MULTI 09 Medical VITAMIN Branch ORAL) METHYLCELLU Yes Univer s LOSE (FIBER 1-24 ity of THERAPY 17:49: [place] MISC) Medical Branch DOCUSATE Yes Take [...] EXTRACT 17:49: daily. [place] (CRANBERRY Medical ORAL) [place] polyethylen Yes 17g 17 g, Unive rs e glycol 1-24 Oral, BID, ity o f 3350 powder 16:45: First dose [place] 17 g 00 on [facility] 10/19/22 at Branch 1045, Until Discontinu ed, Routine pantoprazol Yes 40mg 40 mg, Univ ers e 1-24 Oral, BID, ity of (PROTONIX) 16:15: First dose [place] 2 mg/mL 00 on [facility] oral 10/19/22 at Branch suspension 1015, 40 mg Until Discontinu ed, Routine montelukast Yes 10mg 10 mg, Univ ers (SINGULAIR) 1-24 Oral, ity of tablet 10 15:00: DAILY, [place] mg 00 First dose Medical on [facility] 10/19/22 at 0900, Until Discontinu ed, Routine citalopram Yes 40mg 40 mg, Unive rs (CELEXA) 1-24 Oral, ity of tablet 40 15:00: DAILY, [place] mg 00 First dose Medical on [facility] 10/19/22 at 0900, Until Discontinu ed, Routine losartan 3-0 Yes 50mg 50 mg, Univers (COZAAR) 1-24 Oral, BID, ity o f tablet 50 14:00: First dose [place] mg 00 on [facility] 10/19/22 at Branch 0800, Until Discontinu ed, Routine fluticasone 2022-0 Yes 2{puff} 2 Puff, Univers propionate 24 Inhalation ity of (FLOVENT) 14:00: , Q12H, [place] 110 00 First dose Medical mcg/actuati on [facility] on inhaler 10/19/22 at 2 Puff 0800, Until Discontinu ed, Routine
Is this order for a patient with suspected or confirmed COVID-19 infection? No
Does this order have Pulmonary/ Critical Care approval? No busPIRone 2022-0 Yes 20mg 20 mg, Univer s (BUSPAR) 10-19 Oral, BID, ity o f tablet 20 14:00: First dose [place] mg 00 on [facility] 10/19/22 at Branch 0800, Until Discontinu ed, Routine FOLIC ACID 2022-0 2022- No Take by Uni vers ORAL 10-19 mouth ity of 13:15: 00:00 daily. [place] 59 :00 [facility] Branch cholecalcif 2022-0 2022- No 1000U Take 1,000 Univers edmar, 10-19 Units by ity of vitamin D3, 13:15: 00:00 [place] 25 mcg 59 :00 daily. Medical (1,000 Branch unit) tablet CALCIUM 2022-0 2022- No Take by Univer s ORAL 10-19 mouth ity of 13:15: 00:00 daily. [place] 59 :00 [facility] Branch DOCOSAHEXAN 2022-0 2022- No 1000mg Take 1,000 Univers OIC 10-19 mg by ity of ACID/EPA 13:15: 00:00 mouth [place] (FISH OIL 59 :00 daily. Medical ORAL) Branch BIOTIN ORAL 2022-0 2022- No Take by Un jerrod 1-24 01-24 mouth. ity of 13:15: 00:00 [place] 59 :00 Medical Branch FOLIC ACID 2023-0 2023- No Take by Uni vers ORAL 10-19 mouth ity of 13:15: 00:00 daily. [place] 59 :00 Medical Branch cholecalcif 2023-0 2023- No 1000U Take 1,000 Univers edmar, 10-1924 Units by ity of vitamin D3, 13:15: 00:00 [place] 25 mcg 59 :00 daily. Medical (1,000 Branch unit) tablet CALCIUM 2023-0 2023- No Take by Univer s ORAL 10-19 mouth ity of 13:15: 00:00 daily. [place] 59 :00 Medical Branch DOCOSAHEXAN 2023-0 2023- No 1000mg Take 1,000 Univers OIC 10-19 mg by ity of ACID/EPA 13:15: 00:00 mouth [place] (FISH OIL 59 :00 daily. Medical ORAL) Branch BIOTIN ORAL 2023-0 2023- No Take by Un jerrod 10-19 mouth. ity of 13:15: 00:00 [place] 59 :00 Medical Branch FOLIC ACID 2023-0 2023- No Take by Uni vers ORAL 10-19 mouth ity of 13:15: 00:00 daily. [place] 59 :00 Medical Branch cholecalcif 2023-0 2023- No 1000U Take 1,000 Univers edmar, 10-19 Units by ity of vitamin D3, 13:15: 00:00 [place] 25 mcg 59 :00 daily. Medical (1,000 Branch unit) tablet CALCIUM 2023-0 2023- No Take by [place] ORAL 10-19 mouth ity of 13:15: 00:00 daily. [place] 59 :00 Medical Branch DOCOSAHEXAN 2023-0 2023- No 1000mg Take 1,000 Univers OIC 10-1924 mg by ity of ACID/EPA 13:15: 00:00 mouth [place] (FISH OIL 59 :00 daily. Medical ORAL) Branch BIOTIN ORAL 2023-0 2023- No Take by Un jerrod 10-19 mouth. ity of 13:15: 00:00 [place] 59 :00 Medical Branch FOLIC ACID 2023-0 2023- No Take by Uni vers ORAL 10-19 mouth ity of 13:15: 00:00 daily. [place] 59 :00 Medical Branch cholecalcif 2022-0 2022- [...] [place] 59 :00 Medical Branch cholecalcif 2022-0 2022- [...] 00:00 [place] 59 :00 Medical Branch levothyroxi 2022-0 Yes 50ug 50 mcg, Uni vers ne 10-19 Oral, ity of (SYNTHROID) 12:00: QAM-0600, [place] tablet 50 00 First dose Medi cipriano mcg on [facility] 10/19/22 at 0600, Until Discontinu ed, Routine NaCl 0.9% 2022- No 500mL at 999 Univ ers (NS) bolus 10-19 mL/hr, 500 it y of infusion 10:14: 12:01 mL, IV [place] 500 mL 00 :20 Piggyback, Medical ONCE, 1 Branch dose, On [facility] 10/19/22 at 0415, SABRINA traMADoL 0 2022- No 50mg 50 mg, Univer s (ULTRAM) 10-19 Oral, ONCE ity of tablet 50 09:45: 10:14 NOW, 1 [place] mg 00 :00 dose, On [facility] 10/19/22 at 0345, Routine diltiazem 0 Yes 120mg 120 mg, Univ ers XR 10-19 Oral, BID, ity of (DILT-XR) 05:15: First dose [place] capsule 120 00 (after Medica l mg last Branch modificati on) on [facility] 10/18/22 at 2315, Until Discontinu ed traMADoL 2022- No 50mg 50 mg, Univer s (ULTRAM) 10-19 Oral, ONCE ity of tablet 50 05:15: 04:44 NOW, 1 [place] mg 00 :00 dose, On [facility] 10/18/22 at 2315, Routine acetaminoph 0 Yes 650mg 650 mg, Un jerrod en 10-19 Oral, Q6H ity of (TYLENOL) 05:00: ABX, First [place] tablet 650 00 dose on Medica l mg [facility] 10/18/22 at 2300, Until Discontinu ed, Routine lidocaine 0 Yes 1{patch 1 Patch, U nivers (LIDODERM) 10-19 } Topical, ity o f 5 % (700 05:00: Administer [place] as mg/patch) 00 over 12 Medical patch 1 Hours, Branch Patch Q12H ABX, First dose on [facility] 10/18/22 at 2300, Until Discontinu ed, SABRINA lactulose 2022-0 2022- No 30mL 30 mL, Unive rs (CEPHULAC) 10-19 Oral, ity of solution 30 04:15: 16:39 DAILY, [place] mL 00 :06 First dose Medical on [facility] Branch 10/18/22 at 2215, Until Discontinu ed, Routine sucralfate 2022-0 Yes 1g 1 g, Oral, U nivers (CARAFATE) 10-19 AC+HS, ity of tablet 1 g 03:45: First dose [place] 00 on [facility] 10/18/22 at Branch 2145, Until Discontinu ed, Routine famotidine 2022-0 Yes 20mg 20 mg, Unive rs (PEPCID AC) 10-19 Oral, BID, it y of tablet 20 03:45: First dose [place] mg 00 on [facility] 10/18/22 at Branch 2145, Until Discontinu ed, Routine simethicone 2022-0 Yes 80mg 80 mg, Univ ers (GAS RELIEF 10-19 Oral, ity of (SIMETHICON 03:45: PC+HS, [place] E)) 00 First dose Medical chewable on [facility] tablet 80 10/18/22 at mg 2145, Until Discontinu ed, Routine sennosides- 2022-0 Yes 1{tbl} 1 tablet, [facility] docusate 10-19 Oral, ity of sodium 03:45: DAILY, [place] (SENOKOT-S) 00 First dose Me dical 8.6-50 mg on [facility] per tablet 10/18/22 at 1 tablet 2145, Until Discontinu ed, Routine psyllium 2022-0 2022- No 1{packe 1 Packet, Univers husk 10-19 t} Oral, ity of (METAMUCIL 03:45: 16:39 DAILY, [place] (SUGAR 00 :06 First dose Medical FREE)) 3.4 on [facility] gram oral 10/18/22 at powder 2145, packet 1 Until Packet Discontinu ed, Routine dicyclomine 2022-0 202- No 20mg 20 mg, Uni vers (BENTYL) 10-19 Oral, QID, ity of tablet 20 03:45: 16:38 First dose [place] mg 00 :09 on [facility] 10/18/22 at Branch 2145, Until Discontinu ed, Routine ondansetron 2022-0 Yes 4mg 4 mg, Unive rs (ZOFRAN-ODT 1-24 Oral, Q8H ity of ) 03:33: ABX, First [place] disintegrat 00 dose on Medic al ing tablet Tue Branch 4 mg 10/18/22 at 2145, Until Discontinu ed, Routine cyclobenzap 2022-0 Yes 5mg 5 mg, Unive rs rine 1-24 Oral, ity of (FLEXERIL) 03:23: Q8HPRN, [place] tablet 5 mg 31 Starting Medi cipriano on Tue10/18/22 at 2123, Until Discontinu ed, Routine, Muscle Spasms, tension headaches albuterol 2022-0 Yes 2{puff} 2 Puff, Un jerrod (VENTOLIN) 1-24 Inhalation ity of inhaler 2 03:10: , Q6HPRN, [place] Puff 47 Starting Medical on Tue Branch 10/18/22 at 2110, Until Discontinu ed, Routine, Wheezing, Shortness of Breath polyethylen 2022-0 Yes [id number] 17g Take 1 Univers e glycol 1-24 Packet by ity of 3350 17 00:00: mouth in [place] gram powder 00 the Medical morning Branch and 1 Packet in the evening. lactulose 2022-0 Yes [id number] 30mL Take 30 mL Univers 10 gram/15 1-24 by mouth ity o f mL solution 00:00: [facility] and 30 mL Branch in the evening. ondansetron 2022-0 Yes [id number] 4mg Take 1 Univers 4 mg 1-24 tablet by ity of disintegrat 00:00: mouth [place] ing tablet 00 every 8 Medica l (eight) Branch hours as needed for Nausea and Vomiting (N/V). sucralfate 2022-0 Yes [id number] 1g Take 1 Univers 1 gram 1-24 tablet by ity of tablet 00:00: mouth [place] 00 before Medical meals and Branch at bedtime. pantoprazol 2022-0 Yes [id number] 40mg Take 1 Univers e 40 mg EC 1-24 tablet by ity of tablet 00:00: mouth in [place] 00 the Medical morning Branch and 1 tablet in the evening. SUMAtriptan 2022-0 Yes [id number] 50mg Take 1 Univers 50 mg 1-24 tablet by ity of tablet 00:00: mouth as [place] 00 needed for Medical Migraine. Branch May repeat dose after >=2 hours, max dose 200mg in 24 hours. polyethylen 2023-0 Yes [id number] 17g Take 1 Univers e glycol 1-24 Packet by ity of 3350 17 00:00: mouth in [place] gram powder 00 the Medical morning Branch and 1 Packet in the evening. lactulose 2023-0 Yes [id number] 30mL Take 30 mL Univers 10 gram/15 1-24 by mouth ity o f mL solution 00:00: in the morning Medical and 30 mL Branch in the evening. ondansetron 2023-0 Yes [id number] 4mg Take 1 Univers 4 mg 1-24 tablet by ity of disintegrat 00:00: mouth [place] ing tablet 00 every 8 Medica l (eight) Branch hours as needed for Nausea and Vomiting (N/V). sucralfate 2023-0 Yes [id number] 1g Take 1 Univers 1 gram 1-24 tablet by ity of tablet 00:00: mouth 00 before Medical meals and Branch at bedtime. pantoprazol 2023-0 Yes [id number] 40mg Take 1 Univers e 40 mg EC 1-24 tablet by ity of tablet 00:00: mouth in [place] 00 the Medical morning Branch and 1 tablet in the evening. SUMAtriptan 2023-0 Yes [id number] 50mg Take 1 Univers 50 mg 1-24 tablet by ity of tablet 00:00: mouth as needed for Medical Migraine. Branch May repeat dose after >=2 hours, max dose 200mg in 24 hours. polyethylen 2023-0 Yes [id number] 17g Take 1 Univers e glycol 1-24 Packet by ity of 3350 17 00:00: mouth in [place] gram powder 00 the Medical morning Branch and 1 Packet in the evening. lactulose 2023-0 Yes [id number] 30mL Take 30 mL Univers 10 gram/15 1-24 by mouth ity o f mL solution 00:00: in the morning Medical and 30 mL Branch in the evening. ondansetron 2023-0 Yes [id number] 4mg Take 1 Univers 4 mg 1-24 tablet by ity of disintegrat 00:00: mouth [place] ing tablet 00 every 8 Medica l (eight) Branch hours as needed for Nausea and Vomiting (N/V). sucralfate 2023-0 Yes [id number] 1g Take 1 Univers 1 gram 1-24 tablet by ity of tablet 00:00: mouth [place] 00 before Medical meals and Branch at bedtime. pantoprazol 2023-0 Yes [id number] 40mg Take 1 Univers e 40 mg EC 1-24 tablet by ity of tablet 00:00: mouth in [place] 00 the Medical morning Branch and 1 tablet in the evening. SUMAtriptan 2023-0 Yes [id number] 50mg Take 1 Univers 50 mg 1-24 tablet by ity of tablet 00:00: mouth as [place] 00 needed for Medical Migraine. Branch May repeat dose after >=2 hours, max dose 200mg in 24 hours. polyethylen 2023-0 Yes [id number] 17g Take 1 Univers e glycol 1-24 Packet by ity of 3350 17 00:00: mouth in [place] gram powder 00 the Medical morning Branch and 1 Packet in the evening. lactulose 3-0 Yes [id number] 30mL Take 30 mL Univers 10 gram/15 1-24 by mouth ity o f mL solution 00:00: in the [facility] s 00 morning Medical and 30 mL Branch in the evening. ondansetron 3-0 Yes [id number] 4mg Take 1 Univers 4 mg 1-24 tablet by ity of disintegrat 00:00: mouth [place] ing tablet 00 every 8 Medica l (eight) Branch hours as needed for Nausea and Vomiting (N/V). sucralfate 3-0 Yes [id number] 1g Take 1 Univers 1 gram 1-24 tablet by ity of tablet 00:00: mouth [place] 00 before Medical meals and Branch at bedtime. pantoprazol 3-0 Yes [id number] 40mg Take 1 Univers e 40 mg EC 1-24 tablet by ity of tablet 00:00: mouth in [place] 00 the Medical morning Branch and 1 tablet in the evening. SUMAtriptan 2023-0 Yes [id number] 50mg Take 1 Univers 50 mg 1-24 tablet by ity of tablet 00:00: mouth as [place] 00 needed for Medical Migraine. Branch May repeat dose after >=2 hours, max dose 200mg in 24 hours. polyethylen 2023-0 Yes [id number] 17g Take 1 Univers e glycol 1-24 Packet by ity of 3350 17 00:00: mouth in [place] gram powder 00 the Medical morning Branch and 1 Packet in the evening. lactulose 2023-0 Yes [id number] 30mL Take 30 mL Univers 10 gram/15 1-24 by mouth ity o f mL solution 00:00: in the morning Medical and 30 mL Branch in the evening. ondansetron 2023-0 Yes [id number] 4mg Take 1 Univers 4 mg 1-24 tablet by ity of disintegrat 00:00: mouth [place] ing tablet 00 every 8 Medica l (eight) Branch hours as needed for Nausea and Vomiting (N/V). sucralfate 2023-0 Yes [id number] 1g Take 1 Univers 1 gram 1-24 tablet by ity of tablet 00:00: mouth [place] 00 before Medical meals and Branch at bedtime. pantoprazol 2023-0 Yes [id number] 40mg Take 1 Univers e 40 mg EC 1-24 tablet by ity of tablet 00:00: mouth in [place] 00 the Medical morning Branch and 1 tablet in the evening. SUMAtriptan 3-0 Yes [id number] 50mg Take 1 Univers 50 mg 1-24 tablet by ity of tablet 00:00: mouth as [place] 00 needed for Medical Migraine. Branch May repeat dose after >=2 hours, max dose 200mg in 24 hours. polyethylen 2023-0 Yes [id number] 17g Take 1 Univers e glycol 1-24 Packet by ity of 3350 17 00:00: mouth in [place] gram powder 00 the Medical morning Branch and 1 Packet in the evening. lactulose 2023-0 Yes [id number] 30mL Take 30 mL Univers 10 gram/15 1-24 by mouth ity o f mL solution 00:00: in the morning Medical and 30 mL Branch in the evening. ondansetron 2023-0 Yes [id number] 4mg Take 1 Univers 4 mg 1-24 tablet by ity of disintegrat 00:00: mouth [place] ing tablet 00 every 8 Medica l (eight) Branch hours as needed for Nausea and Vomiting (N/V). sucralfate 2023-0 Yes [id number] 1g Take 1 Univers 1 gram 1-24 tablet by ity of tablet 00:00: mouth [place] 00 before Medical meals and Branch at bedtime. pantoprazol 2023-0 Yes [id number] 40mg Take 1 Univers e 40 mg EC 1-24 tablet by ity of tablet 00:00: mouth in [place] 00 the Medical morning Branch and 1 tablet in the evening. SUMAtriptan 2023-0 Yes [id number] 50mg Take 1 Univers 50 mg 1-24 tablet by ity of tablet 00:00: mouth as [place] [id number] needed for Medical Migraine. Branch May repeat dose after >=2 hours, max dose 200mg in 24 hours. polyethylen 2023-0 Yes [id number] 17g Take 1 [facility] glycol 1-24 Packet by [facility] of 3350 17 00:00: mouth in [place] gram powder 00 the Medical morning Branch and 1 Packet in the evening. lactulose 2023-0 Yes [id number] 30mL Take 30 mL [facility] 10 gram/15 1-24 by mouth ity o f mL solution 00:00: in the [facility] morning Medical and 30 mL Branch in the evening. ondansetron 3-0 Yes [id number] 4mg Take 1 [facility] 4 mg 1-24 tablet by [facility] of disintegrat 00:00: mouth [place] ing tablet 00 every 8 Medica l (eight) Branch hours as needed for Nausea and Vomiting (N/V). sucralfate 3-0 Yes [id number] 1g Take 1 [facility] 1 gram 1-24 tablet by [facility] of tablet 00:00: mouth [place] 00 before Medical meals and Branch at bedtime. pantoprazol 3-0 Yes [id number] 40mg Take 1 [facility] e 40 mg EC 1-24 tablet by [facility] of tablet 00:00: mouth in [place] 00 the Medical morning Branch and 1 tablet in the evening. SUMAtriptan 2023-0 Yes [id number] 50mg Take 1 [facility] 50 mg 1-24 tablet by [facility] of tablet 00:00: mouth as [place] [address] needed for Medical Migraine. Branch May repeat dose after >=2 hours, max dose 200mg in 24 hours. polyethylen 2023-0 Yes [id number] 17g Take 1 [facility] e glycol 1-24 Packet by [facility] of 3350 17 00:00: mouth in [place] gram powder 00 the Medical morning Branch and 1 Packet in the evening. lactulose 2023-0 Yes [id number] 30mL Take 30 mL [facility] 10 gram/15 1-24 by mouth ity o f mL solution 00:00: in the [facility] morning Medical and 30 mL Branch in the evening. ondansetron 2023-0 Yes [id number] 4mg Take 1 [facility] 4 mg 1-24 tablet by ity of disintegrat 00:00: mouth [place] ing tablet 00 every 8 Medica l (eight) Branch hours as needed for Nausea and Vomiting (N/V). sucralfate 2023-0 Yes [id number] 1g Take 1 [facility] 1 gram 1-24 tablet by [facility] of tablet 00:00: mouth [place] 00 before Medical meals and Branch at bedtime. pantoprazol 2023-0 Yes [id number] 40mg Take 1 [facility] e 40 mg EC 1-24 tablet by it[facility] of tablet 00:00: mouth in [place] the Medical morning Branch and 1 tablet in the evening. SUMAtriptan 2023-0 Yes [id number] 50mg Take 1 [facility] 50 mg 1-24 tablet by [facility] of tablet 00:00: mouth as [place] needed for Medical Migraine. Branch May repeat dose after >=2 hours, max dose 200mg in 24 hours. polyethylen 3-0 Yes [id number] 17g Take 1 [facility] e glycol 1-24 Packet by [facility] of 3350 17 00:00: mouth in [place] gram powder 00 the Medical morning Branch and 1 Packet in the evening. lactulose 3-0 Yes [id number] 30mL Take 30 mL [facility] 10 gram/15 1-24 by mouth ity o f mL solution 00:00: in the [facility] morning Medical and 30 mL Branch in the evening. ondansetron 3-0 Yes [id number] 4mg Take 1 [facility] 4 mg 1-24 tablet by ity of disintegrat 00:00: mouth [place] ing tablet 00 every 8 Medica l (eight) Branch hours as needed for Nausea and Vomiting (N/V). sucralfate 2023-0 Yes [id number] 1g Take 1 [facility] 1 gram 1-24 tablet by [facility] of tablet 00:00: mouth [place] 00 before Medical meals and Branch at bedtime. pantoprazol 2023-0 Yes [id number] 40mg Take 1 [facility] e 40 mg EC 1-24 tablet by [facility] of tablet 00:00: mouth in [place] 00 the Medical morning Branch and 1 tablet in the evening. SUMAtriptan 2023-0 Yes [id number] 50mg Take 1 [facility] 50 mg 1-24 tablet by [facility] of tablet 00:00: mouth as [place] [address] needed for Medical Migraine. Branch May repeat dose after >=2 hours, max dose 200mg in 24 hours. polyethylen 2023-0 Yes [id number] 17g Take 1 [facility] e glycol 1-24 Packet by [facility] of 3350 17 00:00: mouth in [place] gram powder 00 the Medical morning Branch and 1 Packet in the evening. lactulose 2023-0 Yes [id number] 30mL Take 30 mL [facility] 10 gram/15 1-24 by mouth ity o f mL solution 00:00: in the morning Medical and 30 mL Branch in the evening. ondansetron 2023-0 Yes [id number] 4mg Take 1 [facility] 4 mg 1-24 tablet by ity of disintegrat 00:00: mouth [place] ing tablet 00 every 8 Medica l (eight) Branch hours as needed for Nausea and Vomiting (N/V). sucralfate 2023-0 Yes [id number] 1g Take 1 [facility] 1 gram 1-24 tablet by [facility]y of tablet 00:00: mouth 00 before Medical meals and Branch at bedtime. pantoprazol 2023-0 Yes [id number] 40mg Take 1 [facility] e 40 mg EC 1-24 tablet by [facility] of tablet 00:00: mouth in [place] 00 the Medical morning Branch and 1 tablet in the evening. SUMAtriptan 2023-0 Yes [id number] 50mg Take 1 [facility] 50 mg 1-24 tablet by it[facility] of tablet 00:00: mouth as [place] 00 needed for Medical Migraine. Branch May repeat dose after >=2 hours, max dose 200mg in 24 hours. polyethylen 2023-0 Yes [id number] 17g Take 1 [facility] e glycol 1-24 Packet by ity of 3350 17 00:00: mouth in [place] gram powder 00 the Medical morning Branch and 1 Packet in the evening. lactulose 2023-0 Yes [id number] 30mL Take 30 mL [facility] 10 gram/15 1-24 by mouth ity o f mL solution 00:00: in the morning Medical and 30 mL Branch in the evening. ondansetron 2023-0 Yes [id number] 4mg Take 1 [facility] 4 mg 1-24 tablet by ity of disintegrat 00:00: mouth [place] ing tablet 00 every 8 Medica l (eight) Branch hours as needed for Nausea and Vomiting (N/V). sucralfate 2023-0 Yes [id number] 1g Take 1 [facility] 1 gram 1-24 tablet by [facility] of tablet 00:00: mouth [place] 00 before Medical meals and Branch at bedtime. pantoprazol 3-0 Yes [id number] 40mg Take 1 [facility] e 40 mg EC 1-24 tablet by ity of tablet 00:00: mouth in [place] 00 the Medical morning Branch and 1 tablet in the evening. SUMAtriptan 3-0 Yes [id number] 50mg Take 1 [facility] 50 mg 1-24 tablet by it[facility] of tablet 00:00: mouth as [place] 00 needed for Medical Migraine. Branch May repeat dose after >=2 hours, max dose 200mg in 24 hours. polyethylen 3-0 Yes [id number] 17g Take 1 [facility] e glycol 1-24 Packet by ity of 3350 17 00:00: mouth in [place] gram powder 00 the Medical morning Branch and 1 Packet in the evening. lactulose 3-0 Yes [id number] 30mL Take 30 mL [facility] 10 gram/15 1-24 by mouth ity o f mL solution 00:00: [facility] Medical and 30 mL Branch in the evening. ondansetron 2022-0 Yes [id number] 4mg Take 1 [facility] 4 mg 1-24 tablet by ity of disintegrat 00:00: mouth [place] ing tablet 00 every 8 Medica l (eight) Branch hours as needed for Nausea and Vomiting (N/V). sucralfate 2022-0 Yes [id number] 1g Take 1 [facility] 1 gram 1-24 tablet by it[facility] of tablet 00:00: mouth [place] 00 before Medical meals and Branch at bedtime. pantoprazol 3-0 Yes [id number] 40mg Take 1 [facility] e 40 mg EC 1-24 tablet by ity of tablet 00:00: mouth in [place] 00 the Medical morning Branch and 1 tablet in the evening. SUMAtriptan 3-0 Yes [id number] 50mg Take 1 [facility] 50 mg 1-24 tablet by ity of tablet 00:00: mouth as [place] 00 needed for Medical Migraine. Branch May repeat dose after >=2 hours, max dose 200mg in 24 hours. polyethylen 2023-0 Yes [id number] 17g Take 1 [facility] e glycol 1-24 Packet by ity of 3350 17 00:00: mouth in [place] gram powder 00 the Medical morning Branch and 1 Packet in the evening. lactulose 2023-0 Yes [id number] 30mL Take 30 mL [facility] 10 gram/15 1-24 by mouth ity o f mL solution 00:00: in the morning Medical and 30 mL Branch in the evening. ondansetron 2023-0 Yes [id number] 4mg Take 1 [facility] 4 mg 1-24 tablet by ity of disintegrat 00:00: mouth [place] ing tablet 00 every 8 Medica l (eight) Branch hours as needed for Nausea and Vomiting (N/V). sucralfate 2023-0 Yes [id number] 1g Take 1 [facility] 1 gram 1-24 tablet by ity of tablet 00:00: mouth [place] 00 before Medical meals and Branch at bedtime. pantoprazol 2023-0 Yes [id number] 40mg Take 1 [facility] e 40 mg EC 1-24 tablet by ity of tablet 00:00: mouth in [place] 00 the Medical morning Branch and 1 tablet in the evening. SUMAtriptan 3-0 Yes [id number] 50mg Take 1 [facility] 50 mg 1-24 tablet by ity of tablet 00:00: mouth as [place] 00 needed for Medical Migraine. Branch May repeat dose after >=2 hours, max dose 200mg in 24 hours. polyethylen 3-0 Yes [id number] 17g Take 1 [facility] e glycol 1-24 Packet by ity of 3350 17 00:00: mouth in [place] gram powder 00 the Medical morning Branch and 1 Packet in the evening. lactulose 3-0 Yes [id number] 30mL Take 30 mL [facility] 10 gram/15 1-24 by mouth ity o f mL solution 00:00: in the morning Medical and 30 mL Branch in the evening. ondansetron 3-0 Yes [id number] 4mg Take 1 [facility] 4 mg 1-24 tablet by ity of disintegrat 00:00: mouth [place] ing tablet 00 every 8 Medica l (eight) Branch hours as needed for Nausea and Vomiting (N/V). sucralfate 2023-0 Yes [id number] 1g Take 1 [facility] 1 gram 1-24 tablet by ity of tablet 00:00: mouth [place] 00 before Medical meals and Branch at bedtime. pantoprazol 2023-0 Yes [id number] 40mg Take 1 [facility] e 40 mg EC 1-24 tablet by ity of tablet 00:00: mouth in [place] 00 the Medical morning Branch and 1 tablet in the evening. SUMAtriptan 2023-0 Yes [id number] 50mg Take 1 [facility] 50 mg 1-24 tablet by ity of tablet 00:00: mouth as [place] [address] needed for Medical Migraine. Branch May repeat dose after >=2 hours, max dose 200mg in 24 hours. polyethylen 2023-0 Yes [id number] 17g Take 1 [facility] e glycol 1-24 Packet by ity of 3350 17 00:00: mouth in [place] gram powder 00 the Medical morning Branch and 1 Packet in the evening. lactulose 2023-0 Yes [id number] 30mL Take 30 mL [facility] 10 gram/15 1-24 by mouth ity o f mL solution 00:00: in the [facility] morning Medical and 30 mL Branch in the evening. ondansetron 3-0 Yes [id number] 4mg Take 1 [facility] 4 mg 1-24 tablet by ity of disintegrat 00:00: mouth [place] ing tablet 00 every 8 Medica l (eight) Branch hours as needed for Nausea and Vomiting (N/V). sucralfate 3-0 Yes [id number] 1g Take 1 [facility] 1 gram 1-24 tablet by ity of tablet 00:00: mouth [place] 00 before Medical meals and Branch at bedtime. pantoprazol 2023-0 Yes [id number] 40mg Take 1 [facility] e 40 mg EC 1-24 tablet by ity of tablet 00:00: mouth in [place] 00 the Medical morning Branch and 1 tablet in the evening. SUMAtriptan 2023-0 Yes [id number] 50mg Take 1 [facility] 50 mg 1-24 tablet by ity of tablet 00:00: mouth as [place] [address] needed for Medical Migraine. Branch May repeat dose after >=2 hours, max dose 200mg in 24 hours. polyethylen 2023-0 Yes [id number] 17g Take 1 [facility] e glycol 1-24 Packet by ity of 3350 17 00:00: mouth in [place] gram powder 00 the Medical morning Branch and 1 Packet in the evening. lactulose 2023-0 Yes [id number] 30mL Take 30 mL [facility] 10 gram/15 1-24 by mouth ity o f mL solution 00:00: in the [facility] morning Medical and 30 mL Branch in the evening. ondansetron 3-0 Yes [id number] 4mg Take 1 [facility] 4 mg 1-24 tablet by ity of disintegrat 00:00: mouth [place] ing tablet 00 every 8 Medica l (eight) Branch hours as needed for Nausea and Vomiting (N/V). sucralfate 3-0 Yes [id number] 1g Take 1 [facility] 1 gram 1-24 tablet by ity of tablet 00:00: mouth [place] 00 before Medical meals and Branch at bedtime. pantoprazol 3-0 Yes [id number] 40mg Take 1 [facility] e 40 mg EC 1-24 tablet by ity of tablet 00:00: mouth in [place] 00 the Medical morning Branch and 1 tablet in the evening. SUMAtriptan 3-0 Yes [id number] 50mg Take 1 [facility] 50 mg 1-24 tablet by ity of tablet 00:00: mouth as [place] needed for Medical Migraine. Branch May repeat dose after >=2 hours, max dose 200mg in 24 hours. polyethylen 3-0 Yes [id number] 17g Take 1 [facility] e glycol 1-24 Packet by ity of 3350 17 00:00: mouth in [place] gram powder 00 the Medical morning Branch and 1 Packet in the evening. lactulose 3-0 Yes [id number] 30mL Take 30 mL [facility] 10 gram/15 1-24 by mouth ity o f mL solution 00:00: in the [facility] morning Medical and 30 mL Branch in the evening. ondansetron 3-0 Yes [id number] 4mg Take 1 [facility] 4 mg 1-24 tablet by ity of disintegrat 00:00: mouth [place] ing tablet 00 every 8 Medica l (eight) Branch hours as needed for Nausea and Vomiting (N/V). sucralfate 3-0 Yes [id number] 1g Take 1 [facility] 1 gram 1-24 tablet by ity of tablet 00:00: mouth [place] 00 before Medical meals and Branch at bedtime. pantoprazol 3-0 Yes [id number] 40mg Take 1 [facility] e 40 mg EC 1-24 tablet by ity of tablet 00:00: mouth in [place] 00 the Medical morning Branch and 1 tablet in the evening. SUMAtriptan 3-0 Yes [id number] 50mg Take 1 [facility] 50 mg 1-24 tablet by ity of tablet 00:00: mouth as [place] [address] needed for Medical Migraine. Branch May repeat dose after >=2 hours, max dose 200mg in 24 hours. polyethylen 2023-0 Yes [id number] 17g Take 1 [facility] e glycol 1-24 Packet by ity of 3350 17 00:00: mouth in [place] gram powder 00 the Medical morning Branch and 1 Packet in the evening. lactulose 2023-0 Yes [id number] 30mL Take 30 mL [facility] 10 gram/15 1-24 by mouth ity o f mL solution 00:00: in the morning Medical and 30 mL Branch in the evening. ondansetron 2023-0 Yes [id number] 4mg Take 1 [facility] 4 mg 1-24 tablet by ity of disintegrat 00:00: mouth [place] ing tablet 00 every 8 Medica l (eight) Branch hours as needed for Nausea and Vomiting (N/V). sucralfate 2023-0 Yes [id number] 1g Take 1 [facility] 1 gram 1-24 tablet by ity of tablet 00:00: mouth 00 before Medical meals and Branch at bedtime. pantoprazol 2023-0 Yes [id number] 40mg Take 1 [facility] e 40 mg EC 1-24 tablet by ity of tablet 00:00: mouth in [place] the Medical morning Branch and 1 tablet in the evening. SUMAtriptan 2023-0 Yes [id number] 50mg Take 1 [facility] 50 mg 1-24 tablet by ity of tablet 00:00: mouth as [place] [address] needed for Medical Migraine. Branch May repeat dose after >=2 hours, max dose 200mg in 24 hours. polyethylen 2023-0 Yes [id number] 17g Take 1 [facility] e glycol 1-24 Packet by ity of 3350 17 00:00: mouth in [place] gram powder 00 the Medical morning Branch and 1 Packet in the evening. lactulose 2023-0 Yes [id number] 30mL Take 30 mL [facility] 10 gram/15 1-24 by mouth ity o f mL solution 00:00: in the [facility] morning Medical and 30 mL Branch in the evening. ondansetron 2023-0 Yes [id number] 4mg Take 1 [facility] 4 mg 1-24 tablet by ity of disintegrat 00:00: mouth [place] ing tablet 00 every 8 Medica l (eight) Branch hours as needed for Nausea and Vomiting (N/V). sucralfate 2023-0 Yes [id number] 1g Take 1 [facility] 1 gram 1-24 tablet by ity of tablet 00:00: mouth [place] 00 before Medical meals and Branch at bedtime. pantoprazol 2023-0 Yes [id number] 40mg Take 1 [facility] e 40 mg EC 1-24 tablet by ity of tablet 00:00: mouth in [place] 00 the Medical morning Branch and 1 tablet in the evening. SUMAtriptan 2023-0 Yes [id number] 50mg Take 1 [facility] 50 mg 1-24 tablet by ity of tablet 00:00: mouth as [place] 00 needed for Medical Migraine. Branch May repeat dose after >=2 hours, max dose 200mg in 24 hours. polyethylen 2023-0 Yes [id number] 17g Take 1 [facility] e glycol 1-24 Packet by ity of 3350 17 00:00: mouth in [place] gram powder 00 the Medical morning Branch and 1 Packet in the evening. lactulose 3-0 Yes [id number] 30mL Take 30 mL [facility] 10 gram/15 1-24 by mouth ity o f mL solution 00:00: in the [place] [facility] 00 morning Medical and 30 mL Branch in the evening. ondansetron 3-0 Yes [id number] 4mg Take 1 [facility] 4 mg 1-24 tablet by ity of disintegrat 00:00: mouth [place] ing tablet 00 every 8 Medica l (eight) Branch hours as needed for Nausea and Vomiting (N/V). sucralfate 3-0 Yes [id number] 1g Take 1 [facility] 1 gram 1-24 tablet by ity of tablet 00:00: mouth [place] 00 before Medical meals and Branch at bedtime. pantoprazol 3-0 Yes [id number] 40mg Take 1 [facility] e 40 mg EC 1-24 tablet by ity of tablet 00:00: mouth in [place] 00 the Medical morning Branch and 1 tablet in the evening. SUMAtriptan 2023-0 Yes [id number] 50mg Take 1 [facility] 50 mg 1-24 tablet by ity of tablet 00:00: mouth as [place] 00 needed for Medical Migraine. Branch May repeat dose after >=2 hours, max dose 200mg in 24 hours. polyethylen 2023-0 Yes [id number] 17g Take 1 [facility] e glycol 1-24 Packet by ity of 3350 17 00:00: mouth in [place] gram powder 00 the Medical morning Branch and 1 Packet in the evening. lactulose 2023-0 Yes [id number] 30mL Take 30 mL [facility] 10 gram/15 1-24 by mouth ity o f mL solution 00:00: in the [facility] morning Medical and 30 mL Branch in the evening. ondansetron 2023-0 Yes [id number] 4mg Take 1 [facility] 4 mg 1-24 tablet by ity of disintegrat 00:00: mouth [place] ing tablet 00 every 8 Medica l (eight) Branch hours as needed for Nausea and Vomiting (N/V). sucralfate 2023-0 Yes [id number] 1g Take 1 [facility] 1 gram 1-24 tablet by ity of tablet 00:00: mouth [place] 00 before Medical meals and Branch at bedtime. pantoprazol 2023-0 Yes [id number] 40mg Take 1 [facility] e 40 mg EC 1-24 tablet by ity of tablet 00:00: mouth in [place] the Medical morning Branch and 1 tablet in the evening. SUMAtriptan 3-0 Yes [id number] 50mg Take 1 [facility] 50 mg 1-24 tablet by ity of tablet 00:00: mouth as [place] [address] needed for Medical Migraine. Branch May repeat dose after >=2 hours, max dose 200mg in 24 hours. polyethylen 3-0 Yes [id number] 17g Take 1 [facility] e glycol 1-24 Packet by ity of 3350 17 00:00: mouth in [place] gram powder 00 the Medical morning Branch and 1 Packet in the evening. lactulose 3-0 Yes [id number] 30mL Take 30 mL [facility] 10 gram/15 1-24 by mouth ity o f mL solution 00:00: in the [facility] morning Medical and 30 mL Branch in the evening. ondansetron 3-0 Yes [id number] 4mg Take 1 [facility] 4 mg 1-24 tablet by ity of disintegrat 00:00: mouth [place] ing tablet 00 every 8 Medica l (eight) Branch hours as needed for Nausea and Vomiting (N/V). sucralfate 2023-0 Yes [id number] 1g Take 1 [facility] 1 gram 1-24 tablet by ity of tablet 00:00: mouth [place] 00 before Medical meals and Branch at bedtime. pantoprazol 2023-0 Yes [id number] 40mg Take 1 [facility] e 40 mg EC 1-24 tablet by ity of tablet 00:00: mouth in [place] 00 the Medical morning Branch and 1 tablet in the evening. SUMAtriptan 2023-0 Yes [id number] 50mg Take 1 [facility] 50 mg 1-24 tablet by ity of tablet 00:00: mouth as [place] [address] needed for Medical Migraine. Branch May repeat dose after >=2 hours, max dose 200mg in 24 hours. polyethylen 2023-0 Yes [id number] 17g Take 1 [facility] e glycol 1-24 Packet by ity of 3350 17 00:00: mouth in [place] gram powder 00 the Medical morning Branch and 1 Packet in the evening. lactulose 2023-0 Yes [id number] 30mL Take 30 mL [facility] 10 gram/15 1-24 by mouth ity o f mL solution 00:00: in the [facility] morning Medical and 30 mL Branch in the evening. ondansetron 3-0 Yes [id number] 4mg Take 1 [facility] 4 mg 1-24 tablet by ity of disintegrat 00:00: mouth [place] ing tablet 00 every 8 Medica l (eight) Branch hours as needed for Nausea and Vomiting (N/V). sucralfate 2023-0 Yes [id number] 1g Take 1 [facility] 1 gram 1-24 tablet by ity of tablet 00:00: mouth [place] 00 before Medical meals and Branch at bedtime. pantoprazol 2023-0 Yes [id number] 40mg Take 1 [facility] e 40 mg EC 1-24 tablet by ity of tablet 00:00: mouth in [place] 00 the Medical morning Branch and 1 tablet in the evening. SUMAtriptan 2023-0 Yes [id number] 50mg Take 1 [facility] 50 mg 1-24 tablet by ity of tablet 00:00: mouth as [place] [address] needed for Medical Migraine. Branch May repeat dose after >=2 hours, max dose 200mg in 24 hours. polyethylen 2023-0 Yes [id number] 17g Take 1 [facility] e glycol 1-24 Packet by ity of 3350 17 00:00: mouth in [place] gram powder 00 the Medical morning Branch and 1 Packet in the evening. lactulose 2023-0 Yes [id number] 30mL Take 30 mL [facility] 10 gram/15 1-24 by mouth ity o f mL solution 00:00: in the [facility] morning Medical and 30 mL Branch in the evening. ondansetron 2023-0 Yes [id number] 4mg Take 1 [facility] 4 mg 1-24 tablet by ity of disintegrat 00:00: mouth [place] ing tablet 00 every 8 Medica l (eight) Branch hours as needed for Nausea and Vomiting (N/V). sucralfate 2023-0 Yes [id number] 1g Take 1 [facility] 1 gram 1-24 tablet by ity of tablet 00:00: mouth [place] 00 before Medical meals and Branch at bedtime. pantoprazol 2023-0 Yes [id number] 40mg Take 1 [facility] e 40 mg EC 1-24 tablet by ity of tablet 00:00: mouth in [place] the Medical morning Branch and 1 tablet in the evening. SUMAtriptan 3-0 Yes [id number] 50mg Take 1 [facility] 50 mg 1-24 tablet by ity of tablet 00:00: mouth as [place] [address] needed for Medical Migraine. Branch May repeat dose after >=2 hours, max dose 200mg in 24 hours. polyethylen 3-0 Yes [id number] 17g Take 1 [facility] e glycol 1-24 Packet by ity of 3350 17 00:00: mouth in [place] gram powder 00 the Medical morning Branch and 1 Packet in the evening. lactulose 3-0 Yes [id number] 30mL Take 30 mL [facility] 10 gram/15 1-24 by mouth ity o f mL solution 00:00: in the [facility] morning Medical and 30 mL Branch in the evening. ondansetron 3-0 Yes [id number] 4mg Take 1 [facility] 4 mg 1-24 tablet by ity of disintegrat 00:00: mouth [place] ing tablet 00 every 8 Medica l (eight) Branch hours as needed for Nausea and Vomiting (N/V). sucralfate 3-0 Yes [id number] 1g Take 1 [facility] 1 gram 1-24 tablet by ity of tablet 00:00: mouth [place] 00 before Medical meals and Branch at bedtime. pantoprazol 2023-0 Yes [id number] 40mg Take 1 [facility] e 40 mg EC 1-24 tablet by ity of tablet 00:00: mouth in [place] the Medical morning Branch and 1 tablet in the evening. SUMAtriptan 2023-0 Yes [id number] 50mg Take 1 [facility] 50 mg 1-24 tablet by ity of tablet 00:00: mouth as [place] [address] needed for Medical Migraine. Branch May repeat dose after >=2 hours, max dose 200mg in 24 hours. polyethylen 2023-0 Yes [id number] 17g Take 1 [facility] e glycol 1-24 Packet by ity of 3350 17 00:00: mouth in [place] gram powder 00 the Medical morning Branch and 1 Packet in the evening. lactulose 2023-0 Yes [id number] 30mL Take 30 mL [facility] 10 gram/15 1-24 by mouth ity o f mL solution 00:00: in the morning Medical and 30 mL Branch in the evening. ondansetron 2023-0 Yes [id number] 4mg Take 1 [facility] 4 mg 1-24 tablet by ity of disintegrat 00:00: mouth [place] ing tablet 00 every 8 Medica l (eight) Branch hours as needed for Nausea and Vomiting (N/V). sucralfate 2023-0 Yes [id number] 1g Take 1 [facility] 1 gram 1-24 tablet by ity of tablet 00:00: mouth [place] 00 before Medical meals and Branch at bedtime. pantoprazol 2023-0 Yes [id number] 40mg Take 1 [facility] e 40 mg EC 1-24 tablet by ity of tablet 00:00: mouth in [place] 00 the Medical morning Branch and 1 tablet in the evening. SUMAtriptan 3-0 Yes [id number] 50mg Take 1 [facility] 50 mg 1-24 tablet by ity of tablet 00:00: mouth as [place] 00 needed for Medical Migraine. Branch May repeat dose after >=2 hours, max dose 200mg in 24 hours. polyethylen 2023-0 Yes [id number] 17g Take 1 [facility] e glycol 1-24 Packet by ity of 3350 17 00:00: mouth in [place] gram powder 00 the Medical morning Branch and 1 Packet in the evening. lactulose 2023-0 Yes [id number] 30mL Take 30 mL [facility] 10 gram/15 1-24 by mouth ity o f mL solution 00:00: in the morning Medical and 30 mL Branch in the evening. ondansetron 2023-0 Yes [id number] 4mg Take 1 [facility] 4 mg 1-24 tablet by ity of disintegrat 00:00: mouth [place] ing tablet 00 every 8 Medica l (eight) Branch hours as needed for Nausea and Vomiting (N/V). sucralfate 2023-0 Yes [id number] 1g Take 1 [facility] 1 gram 1-24 tablet by ity of tablet 00:00: mouth [place] 00 before Medical meals and Branch at bedtime. pantoprazol 2023-0 Yes [id number] 40mg Take 1 [facility] e 40 mg EC 1-24 tablet by ity of tablet 00:00: mouth in [place] 00 the Medical morning Branch and 1 tablet in the evening. SUMAtriptan 2023-0 Yes [id number] 50mg Take 1 [facility] 50 mg 1-24 tablet by ity of tablet 00:00: mouth as [place] 00 needed for Medical Migraine. Branch May repeat dose after >=2 hours, max dose 200mg in 24 hours. polyethylen 3-0 Yes [id number] 17g Take 1 [facility] e glycol 1-24 Packet by ity of 3350 17 00:00: mouth in [place] gram powder 00 the Medical morning Branch and 1 Packet in the evening. lactulose 3-0 Yes [id number] 30mL Take 30 mL [facility] 10 gram/15 1-24 by mouth ity o f mL solution 00:00: in the [place] [facility] 00 morning Medical and 30 mL Branch in the evening. ondansetron 2022-0 Yes [id number] 4mg Take 1 [facility] 4 mg 1-24 tablet by ity of disintegrat 00:00: mouth [place] ing tablet 00 every 8 Medica l (eight) Branch hours as needed for Nausea and Vomiting (N/V). sucralfate 2022-0 Yes [id number] 1g Take 1 [facility] 1 gram 1-24 tablet by ity of tablet 00:00: mouth [place] 00 before Medical meals and Branch at bedtime. pantoprazol 3-0 Yes [id number] 40mg Take 1 [facility] e 40 mg EC 1-24 tablet by ity of tablet 00:00: mouth in [place] 00 the Medical morning Branch and 1 tablet in the evening. SUMAtriptan 3-0 Yes [id number] 50mg Take 1 [facility] 50 mg 1-24 tablet by ity of tablet 00:00: mouth as [place] 00 needed for Medical Migraine. Branch May repeat dose after >=2 hours, max dose 200mg in 24 hours. polyethylen 2023-0 Yes [id number] 17g Take 1 [facility] e glycol 1-24 Packet by ity of 3350 17 00:00: mouth in [place] gram powder 00 the Medical morning Branch and 1 Packet in the evening. lactulose 2023-0 Yes [id number] 30mL Take 30 mL [facility] 10 gram/15 1-24 by mouth ity o f mL solution 00:00: in the [facility] morning Medical and 30 mL Branch in the evening. ondansetron 2023-0 Yes [id number] 4mg Take 1 [facility] 4 mg 1-24 tablet by ity of disintegrat 00:00: mouth [place] ing tablet 00 every 8 Medica l (eight) Branch hours as needed for Nausea and Vomiting (N/V). sucralfate 2023-0 Yes [id number] 1g Take 1 [facility] 1 gram 1-24 tablet by ity of tablet 00:00: mouth [place] 00 before Medical meals and Branch at bedtime. pantoprazol 2023-0 Yes [id number] 40mg Take 1 [facility] e 40 mg EC 1-24 tablet by ity of tablet 00:00: mouth in [place] the Medical morning Branch and 1 tablet in the evening. SUMAtriptan 3-0 Yes [id number] 50mg Take 1 [facility] 50 mg 1-24 tablet by ity of tablet 00:00: mouth as [place] [address] needed for Medical Migraine. Branch May repeat dose after >=2 hours, max dose 200mg in 24 hours. polyethylen 2023-0 Yes [id number] 17g Take 1 [facility] e glycol 1-24 Packet by ity of 3350 17 00:00: mouth in [place] gram powder 00 the Medical morning Branch and 1 Packet in the evening. lactulose 3-0 Yes [id number] 30mL Take 30 mL [facility] 10 gram/15 1-24 by mouth ity o f mL solution 00:00: in the [facility] morning Medical and 30 mL Branch in the evening. ondansetron 3-0 Yes [id number] 4mg Take 1 [facility] 4 mg 1-24 tablet by ity of disintegrat 00:00: mouth [place] ing tablet 00 every 8 Medica l (eight) Branch hours as needed for Nausea and Vomiting (N/V). sucralfate 2023-0 Yes [id number] 1g Take 1 [facility] 1 gram 1-24 tablet by ity of tablet 00:00: mouth [place] 00 before Medical meals and Branch at bedtime. pantoprazol 2023-0 Yes [id number] 40mg Take 1 [facility] e 40 mg EC 1-24 tablet by ity of tablet 00:00: mouth in [place] 00 the Medical morning Branch and 1 tablet in the evening. SUMAtriptan 2023-0 Yes [id number] 50mg Take 1 [facility] 50 mg 1-24 tablet by ity of tablet 00:00: mouth as [place] 00 needed for Medical Migraine. Branch May repeat dose after >=2 hours, max dose 200mg in 24 hours. polyethylen 2023-0 Yes [id number] 17g Take 1 [facility] e glycol 1-24 Packet by ity of 3350 17 00:00: mouth in [place] gram powder 00 the Medical morning Branch and 1 Packet in the evening. lactulose 2023-0 Yes [id number] 30mL Take 30 mL [facility] 10 gram/15 1-24 by mouth ity o f mL solution 00:00: in the [facility] morning Medical and 30 mL Branch in the evening. ondansetron 3-0 Yes [id number] 4mg Take 1 [facility] 4 mg 1-24 tablet by ity of disintegrat 00:00: mouth [place] ing tablet 00 every 8 Medica l (eight) Branch hours as needed for Nausea and Vomiting (N/V). sucralfate 3-0 Yes [id number] 1g Take 1 [facility] 1 gram 1-24 tablet by ity of tablet 00:00: mouth [place] 00 before Medical meals and Branch at bedtime. pantoprazol 3-0 Yes [id number] 40mg Take 1 [facility] e 40 mg EC 1-24 tablet by ity of tablet 00:00: mouth in [place] 00 the Medical morning Branch and 1 tablet in the evening. SUMAtriptan 2023-0 Yes [id number] 50mg Take 1 [facility] 50 mg 1-24 tablet by ity of tablet 00:00: mouth as [place] [address] needed for Medical Migraine. Branch May repeat dose after >=2 hours, max dose 200mg in 24 hours. polyethylen 2023-0 Yes [id number] 17g Take 1 [facility] e glycol 1-24 Packet by ity of 3350 17 00:00: mouth in [place] gram powder 00 the Medical morning Branch and 1 Packet in the evening. lactulose 2023-0 Yes [id number] 30mL Take 30 mL [facility] 10 gram/15 1-24 by mouth ity o f mL solution 00:00: in the [facility] morning Medical and 30 mL Branch in the evening. ondansetron 3-0 Yes [id number] 4mg Take 1 [facility] 4 mg 1-24 tablet by ity of disintegrat 00:00: mouth [place] ing tablet 00 every 8 Medica l (eight) Branch hours as needed for Nausea and Vomiting (N/V). sucralfate 2023-0 Yes [id number] 1g Take 1 [facility] 1 gram 1-24 tablet by ity of tablet 00:00: mouth [place] 00 before Medical meals and Branch at bedtime. pantoprazol 2023-0 Yes [id number] 40mg Take 1 [facility] e 40 mg EC 1-24 tablet by ity of tablet 00:00: mouth in [place] 00 the Medical morning Branch and 1 tablet in the evening. SUMAtriptan 3-0 Yes [id number] 50mg Take 1 [facility] 50 mg 1-24 tablet by ity of tablet 00:00: mouth as [place] 00 needed for Medical Migraine. Branch May repeat dose after >=2 hours, max dose 200mg in 24 hours. polyethylen 3-0 Yes [id number] 17g Take 1 [facility] e glycol 1-24 Packet by ity of 3350 17 00:00: mouth in [place] gram powder 00 the Medical morning Branch and 1 Packet in the evening. lactulose 2022-0 Yes [id number] 30mL Take 30 mL [facility] 10 gram/15 1-24 by mouth ity o f mL solution 00:00: in the [facility] morning Medical and 30 mL Branch in the evening. ondansetron 3-0 Yes [id number] 4mg Take 1 [facility] 4 mg 1-24 tablet by ity of disintegrat 00:00: mouth [place] ing tablet 00 every 8 Medica l (eight) Branch hours as needed for Nausea and Vomiting (N/V). sucralfate 3-0 Yes [id number] 1g Take 1 [facility] 1 gram 1-24 tablet by ity of tablet 00:00: mouth [place] 00 before Medical meals and Branch at bedtime. pantoprazol 2023-0 Yes [id number] 40mg Take 1 [facility] e 40 mg EC 1-24 tablet by ity of tablet 00:00: mouth in [place] 00 the Medical morning Branch and 1 tablet in the evening. SUMAtriptan 3-0 Yes [id number] 50mg Take 1 [facility] 50 mg 1-24 tablet by ity of tablet 00:00: mouth as [place] 00 needed for Medical Migraine. Branch May repeat dose after >=2 hours, max dose 200mg in 24 hours. polyethylen 2023-0 Yes [id number] 17g Take 1 [facility] e glycol 1-24 Packet by ity of 3350 17 00:00: mouth in [place] gram powder 00 the Medical morning Branch and 1 Packet in the evening. lactulose 2023-0 Yes [id number] 30mL Take 30 mL [facility] 10 gram/15 1-24 by mouth ity o f mL solution 00:00: in the morning Medical and 30 mL Branch in the evening. ondansetron 2023-0 Yes [id number] 4mg Take 1 [facility] 4 mg 1-24 tablet by ity of disintegrat 00:00: mouth [place] ing tablet 00 every 8 Medica l (eight) Branch hours as needed for Nausea and Vomiting (N/V). sucralfate 2023-0 Yes [id number] 1g Take 1 [facility] 1 gram 1-24 tablet by ity of tablet 00:00: mouth 00 before Medical meals and Branch at bedtime. pantoprazol 3-0 Yes [id number] 40mg Take 1 [facility] e 40 mg EC 1-24 tablet by ity of tablet 00:00: mouth in [place] 00 the Medical morning Branch and 1 tablet in the evening. SUMAtriptan 3-0 Yes [id number] 50mg Take 1 [facility] 50 mg 1-24 tablet by ity of tablet 00:00: mouth as [place] 00 needed for Medical Migraine. Branch May repeat dose after >=2 hours, max dose 200mg in 24 hours. polyethylen 2023-0 Yes [id number] 17g Take 1 [facility] e glycol 1-24 Packet by ity of 3350 17 00:00: mouth in [place] gram powder 00 the Medical morning Branch and 1 Packet in the evening. lactulose 2023-0 Yes [id number] 30mL Take 30 mL [facility] 10 gram/15 1-24 by mouth ity o f mL solution 00:00: in the [facility] morning Medical and 30 mL Branch in the evening. ondansetron 2023-0 Yes [id number] 4mg Take 1 [facility] 4 mg 1-24 tablet by ity of disintegrat 00:00: mouth [place] ing tablet 00 every 8 Medica l (eight) Branch hours as needed for Nausea and Vomiting (N/V). sucralfate 2023-0 Yes [id number] 1g Take 1 [facility] 1 gram 1-24 tablet by ity of tablet 00:00: mouth [place] 00 before Medical meals and Branch at bedtime. pantoprazol 3-0 Yes [id number] 40mg Take 1 [facility] e 40 mg EC 1-24 tablet by ity of tablet 00:00: mouth in [place] 00 the Medical morning Branch and 1 tablet in the evening. SUMAtriptan 3-0 Yes [id number] 50mg Take 1 [facility] 50 mg 1-24 tablet by ity of tablet 00:00: mouth as [place] [address] needed for Medical Migraine. Branch May repeat dose after >=2 hours, max dose 200mg in 24 hours. polyethylen 2023-0 Yes [id number] 17g Take 1 [facility] e glycol 1-24 Packet by ity of 3350 17 00:00: mouth in [place] gram powder 00 the Medical morning Branch and 1 Packet in the evening. lactulose 2022-0 Yes [id number] 30mL Take 30 mL [facility] 10 gram/15 1-24 by mouth ity o f mL solution 00:00: in the [place] [facility] 00 morning Medical and 30 mL Branch in the evening. ondansetron 2022-0 Yes [id number] 4mg Take 1 [facility] 4 mg 1-24 tablet by ity of disintegrat 00:00: mouth [place] ing tablet 00 every 8 Medica l (eight) Branch hours as needed for Nausea and Vomiting (N/V). sucralfate 2022-0 Yes [id number] 1g Take 1 [facility] 1 gram 1-24 tablet by ity of tablet 00:00: mouth [place] 00 before Medical meals and Branch at bedtime. pantoprazol 2022-0 Yes [id number] 40mg Take 1 [facility] e 40 mg EC 1-24 tablet by ity of tablet 00:00: mouth in [place] 00 the Medical morning Branch and 1 tablet in the evening. SUMAtriptan 3-0 Yes [id number] 50mg Take 1 [facility] 50 mg 1-24 tablet by ity of tablet 00:00: mouth as [place] 00 needed for Medical Migraine. Branch May repeat dose after >=2 hours, max dose 200mg in 24 hours. polyethylen 2023-0 Yes [id number] 17g Take 1 [facility] e glycol 1-24 Packet by ity of 3350 17 00:00: mouth in [place] gram powder 00 the Medical morning Branch and 1 Packet in the evening. lactulose 3-0 Yes [id number] 30mL Take 30 mL [facility] 10 gram/15 1-24 by mouth ity o f mL solution 00:00: in the morning Medical and 30 mL Branch in the evening. ondansetron 2023-0 Yes [id number] 4mg Take 1 [facility] 4 mg 1-24 tablet by ity of disintegrat 00:00: mouth [place] ing tablet 00 every 8 Medica l (eight) Branch hours as needed for Nausea and Vomiting (N/V). sucralfate 2023-0 Yes [id number] 1g Take 1 [facility] 1 gram 1-24 tablet by ity of tablet 00:00: mouth [place] 00 before Medical meals and Branch at bedtime. pantoprazol 2023-0 Yes [id number] 40mg Take 1 [facility] e 40 mg EC 1-24 tablet by ity of tablet 00:00: mouth in [place] the Medical morning Branch and 1 tablet in the evening. SUMAtriptan 3-0 Yes [id number] 50mg Take 1 [facility] 50 mg 1-24 tablet by ity of tablet 00:00: mouth as [place] [address] needed for Medical Migraine. Branch May repeat dose after >=2 hours, max dose 200mg in 24 hours. polyethylen 2023-0 Yes [id number] 17g Take 1 [facility] e glycol 1-24 Packet by ity of 3350 17 00:00: mouth in [place] gram powder 00 the Medical morning Branch and 1 Packet in the evening. lactulose 3-0 Yes [id number] 30mL Take 30 mL [facility] 10 gram/15 1-24 by mouth ity o f mL solution 00:00: in the [facility] morning Medical and 30 mL Branch in the evening. ondansetron 2023-0 Yes [id number] 4mg Take 1 [facility] 4 mg 1-24 tablet by ity of disintegrat 00:00: mouth [place] ing tablet 00 every 8 Medica l (eight) Branch hours as needed for Nausea and Vomiting (N/V). sucralfate 2023-0 Yes [id number] 1g Take 1 [facility] 1 gram 1-24 tablet by ity of tablet 00:00: mouth [place] 00 before Medical meals and Branch at bedtime. pantoprazol 2023-0 Yes [id number] 40mg Take 1 [facility] e 40 mg EC 1-24 tablet by ity of tablet 00:00: mouth in [place] 00 the Medical morning Branch and 1 tablet in the evening. SUMAtriptan Yes [id number] 50mg Take 1 [facility] 50 mg -24 tablet by ity of tablet 00:00: mouth as [place] 00 needed for Medical Migraine. Branch May repeat dose after >=2 hours, max dose 200mg in 24 hours. iopamidol 2022- No [id number] 73mL 73 mL, Univers (ISOVUE 10-19 Intravenou ity o f 370-500 mL) 00:00: 00:00 s, ONCE, 1 [place] injection 00 :00 dose, On Medica l 73 mL [facility] 10/18/22 at 1800, Routine lactulose 2022- No 45mL 45 mL, Unive rs (CEPHULAC) 10-18 Oral, ity of solution 45 23:45: 23:48 ONCE, 1 [place] mL 00 :00 dose, On [facility] 10/18/22 at 1745, SABRINA dicyclomine 2022- No 20mg 20 mg, Uni vers (BENTYL) 10-18 Intramuscu ity of injection 22:30: 22:11 lar, ONCE, [place] 20 mg 00 :00 1 dose, On [facility] 10/18/22 at 1630, Routine NaCl 0.9% 2022- No 1000mL at 999 Uni vers (NS) bolus 10-18 mL/hr, ity of infusion 22:30: 23:42 1,000 mL, [place] 1,000 mL 00 :00 IV Medical Infusion, Branch ONCE, 1 dose, On [facility] 10/18/22 at 1630, SABRINA MULTIVIT Yes Take by [facility] s &MINERALS/F 23 mouth. ity of ERROUS FUM 21:34: [place] (MULTI 37 Medical VITAMIN Branch ORAL) METHYLCELLU Yes [facility] s LOSE (FIBER 23 ity of THERAPY 21:34: [place] MISC) 37 Medical Branch DOCUSATE Yes Take by [facility] s SODIUM 23 mouth. ity of (COLACE [...] ORAL) Branch FOLIC ACID Yes Take by [facility] ers ORAL 1- mouth ity of 20:39: daily. [place] [address] Medical Branch cholecalcif Yes 1000U Take 1,000 [facility] edmar, 1-23 Units by ity of vitamin D3, 20:39: mouth [place] 25 mcg 28 daily. Medical (1,000 Branch unit) tablet CRANBERRY Yes Take by [facility] rs FRUIT - mouth ity of EXTRACT 20:39: daily. [place] (CRANBERRY 28 Medical ORAL) Branch CALCIUM Yes Take by [facility] ORAL - mouth ity of 20:39: daily. [place] [address] Medical Branch BIOTIN ORAL Yes Take by Uni vers - mouth. ity of 20:39: [place] [address] Medical Branch peg-electro 0 Yes [id number] Take as [facility] lyte soln -20 9102 directed ity of 236-22.74-6 00:00: [place] .74 -5.86 00 colonoscop Medi cipriano gram y Branch solution peg-electro 2022-0 Yes [id number] Take as [facility] lyte soln 1-20 9102 directed ity of 236-22.74-6 00:00: [place] .[place] -5.86 00 colonoscop Medi cipriano gram y Branch solution peg-electro 2022-0 Yes [id number] Take as [facility] lyte soln -20 9102 directed ity of 236-22.74-6 00:00: [place] -5.86 00 colonoscop Medi cipriano gram y Branch solution peg-electro 2022-0 Yes [id number] Take as [facility] lyte soln 1-20 9102 directed ity of 236-22.74-6 00:00: [place] -5.86 00 colonoscop Medi cipriano gram y Branch solution peg-electro 2022-0 Yes [id number] Take as [facility] lyte soln 1-20 9102 directed ity of 236-22.74-6 00:00: [place] -5.86 00 colonoscop Medi cipriano gram y Branch solution peg-electro 2022-0 2022- No [id number] Take as [facility] lyte soln 10-15 9102 directed ity o f 236-22.74-6 00:00: 00:00 before [place] .74 -5.86 00 :00 colonoscop Medi cipriano gram y Branch solution peg-electro 2022-0 2022- No [id number] Take as [facility] lyte soln 10-15 9102 directed ity o f 236-22.74-6 00:00: 00:00 before [place] .74 -5.86 00 :00 colonoscop Medi cipriano gram y Branch solution peg-electro 2022-0 2022- No [id number] Take as [facility] lyte soln 10-15 9102 directed ity o f 236-22.74-6 00:00: 00:00 before [place] .74 -5.86 00 :00 colonoscop Medi cipriano gram y Branch solution peg-electro 2022-0 2022- No [id number] Take as [facility] lyte soln 10-15 9102 directed ity o f 236-22.74-6 00:00: 00:00 before [place] .74 -5.86 00 :00 colonoscop Medi cipriano gram y Branch solution busPIRone 2023-0 Yes [id number] 20mg Take 2 [facility] [place] 10 mg 1-17 tablets by ity of tablet 00:00: mouth in [place] [address] the Medical morning Branch and 2 tablets in the evening. busPIRone 2023-0 Yes [id number] 20mg Take 2 [facility] [place] 10 mg 1-17 tablets by ity of tablet 00:00: mouth in [place] [address] the Medical morning Branch and 2 tablets in the evening. busPIRone 2023-0 Yes [id number] 20mg Take 2 Un [place] 10 mg 1-17 tablets by ity of tablet 00:00: mouth in [place] the Medical morning Branch and 2 tablets in the evening. busPIRone 2023-0 Yes [id number] 20mg Take 2 Un [place] 10 mg 1-17 tablets by ity of tablet 00:00: mouth in [place] [address] the Medical morning Branch and 2 tablets in the evening. busPIRone 2023-0 Yes [id number] 20mg Take 2 Un [place] 10 mg 1-17 tablets by ity of tablet 00:00: mouth in [place] 00 the Medical morning Branch and 2 tablets in the evening. busPIRone 2023-0 Yes [id number] 20mg Take 2 [facility] [place] 10 mg 1-17 tablets by ity of tablet 00:00: mouth in [place] 00 the Medical morning Branch and 2 tablets in the evening. busPIRone 2023-0 Yes [id number] 20mg Take 2 [facility] [place] 10 mg 1-17 tablets by ity of tablet 00:00: mouth in [place] 00 the Medical morning Branch and 2 tablets in the evening. busPIRone 2023-0 Yes [id number] 20mg Take 2 [facility] [place] 10 mg 1-17 tablets by ity of tablet 00:00: mouth in [place] 00 the Medical morning Branch and 2 tablets in the evening. busPIRone 2023-0 Yes [id number] 20mg Take 2 [facility] [place] 10 mg 1-17 tablets by ity of tablet 00:00: mouth in [place] 00 the Medical morning Branch and 2 tablets in the evening. busPIRone 2023-0 Yes [id number] 20mg Take 2 [facility] [place] 10 mg 1-17 tablets by ity of tablet 00:00: mouth in [place] 00 the Medical morning Branch and 2 tablets in the evening. busPIRone 2023-0 Yes [id number] 20mg Take 2 [facility] [place] 10 mg 1-17 tablets by ity of tablet 00:00: mouth in [place] 00 the Medical morning Branch and 2 tablets in the evening. busPIRone 2023-0 Yes [id number] 20mg Take 2 [facility] [place] 10 mg 1-17 tablets by ity of tablet 00:00: mouth in [place] 00 the Medical morning Branch and 2 tablets in the evening. busPIRone 2023-0 Yes [id number] 20mg Take 2 [facility] [place] 10 mg 1-17 tablets by ity of tablet 00:00: mouth in [place] 00 the Medical morning Branch and 2 tablets in the evening. busPIRone 2023-0 Yes [id number] 20mg Take 2 Un [place] 10 mg 1-17 tablets by ity of tablet 00:00: mouth in [place] 00 the Medical morning Branch and 2 tablets in the evening. busPIRone 2023-0 Yes [id number] 20mg Take 2 [facility] [place] 10 mg 1-17 tablets by ity of tablet 00:00: mouth in [place] 00 the Medical morning Branch and 2 tablets in the evening. busPIRone 2023-0 Yes [id number] 20mg Take 2 [facility] [place] 10 mg 1-17 tablets by ity of tablet 00:00: mouth in [place] 00 the Medical morning Branch and 2 tablets in the evening. busPIRone 2023-0 Yes [id number] 20mg Take 2 [facility] [place] 10 mg 1-17 tablets by ity of tablet 00:00: mouth in [place] 00 the Medical morning Branch and 2 tablets in the evening. busPIRone 2023-0 Yes [id number] 20mg Take 2 [facility] [place] 10 mg 1-17 tablets by ity of tablet 00:00: mouth in [place] 00 the Medical morning Branch and 2 tablets in the evening. busPIRone 2023-0 Yes [id number] 20mg Take 2 [facility] [place] 10 mg 1-17 tablets by ity of tablet 00:00: mouth in [place] 00 the Medical morning Branch and 2 tablets in the evening. busPIRone 2023-0 Yes [id number] 20mg Take 2 [facility] [place] 10 mg 1-17 tablets by ity of tablet 00:00: mouth in [place] 00 the Medical morning Branch and 2 tablets in the evening. busPIRone 2023-0 Yes [id number] 20mg Take 2 [facility] [place] 10 mg 1-17 tablets by ity of tablet 00:00: mouth in [place] 00 the Medical morning Branch and 2 tablets in the evening. busPIRone 2023-0 Yes [id number] 20mg Take 2 [place] 10 mg 1-17 tablets by ity of tablet 00:00: mouth in [place] 00 the Medical morning Branch and 2 tablets in the evening. busPIRone 2023-0 Yes [id number] 20mg Take 2 [facility] [place] 10 mg 1-17 tablets by ity of tablet 00:00: mouth in [place] 00 the Medical morning Branch and 2 tablets in the evening. busPIRone 2023-0 Yes [id number] 20mg Take 2 [place] 10 mg 1-17 tablets by ity of tablet 00:00: mouth in [place] 00 the Medical morning Branch and 2 tablets in the evening. busPIRone 2023-0 Yes [id number] 20mg Take 2 [place] 10 mg 1-17 tablets by ity of tablet 00:00: mouth in [place] 00 the Medical morning Branch and 2 tablets in the evening. busPIRone 2023-0 Yes [id number] 20mg Take 2 [place] 10 mg 1-17 tablets by ity of tablet 00:00: mouth in [place] 00 the Medical morning Branch and 2 tablets in the evening. busPIRone 2023-0 Yes [id number] 20mg Take 2 [place] 10 mg 1-17 tablets by ity of tablet 00:00: mouth in [place] 00 the Medical morning Branch and 2 tablets in the evening. busPIRone 2023-0 Yes [id number] 20mg Take 2 [place] 10 mg 1-17 tablets by ity of tablet 00:00: mouth in [place] 00 the Medical morning Branch and 2 tablets in the evening. busPIRone 2023-0 Yes [id number] 20mg Take 2 [place] 10 mg 1-17 tablets by ity of tablet 00:00: mouth in [place] 00 the Medical morning Branch and 2 tablets in the evening. busPIRone 2023-0 Yes [id number] 20mg Take 2 [place] 10 mg 1-17 tablets by ity of tablet 00:00: mouth in [place] 00 the Medical morning Branch and 2 tablets in the evening. busPIRone 2023-0 Yes [id number] 20mg Take 2 [place] 10 mg 1-17 tablets by ity of tablet 00:00: mouth in [place] 00 the Medical morning Branch and 2 tablets in the evening. busPIRone 2023-0 Yes [id number] 20mg Take 2 [place] 10 mg 1-17 tablets by ity of tablet 00:00: mouth in [place] 00 the Medical morning Branch and 2 tablets in the evening. busPIRone 2023-0 Yes [id number] 20mg Take 2 [place] 10 mg 1-17 tablets by ity of tablet 00:00: mouth in [place] 00 the Medical morning Branch and 2 tablets in the evening. busPIRone 2023-0 Yes [id number] 20mg Take 2 [place] 10 mg 1-17 tablets by ity of tablet 00:00: mouth in [place] 00 the Medical morning Branch and 2 tablets in the evening. busPIRone 2023-0 Yes [id number] 20mg Take 2 [place] 10 mg 1-17 tablets by ity of tablet 00:00: mouth in [place] 00 the Medical morning Branch and 2 tablets in the evening. busPIRone 2023-0 Yes [id number] 20mg Take 2 [place] 10 mg 1-17 tablets by ity of tablet 00:00: mouth in [place] 00 the Medical morning Branch and 2 tablets in the evening. busPIRone 2023-0 Yes [id number] 20mg Take 2 [place] 10 mg 1-17 tablets by ity of tablet 00:00: mouth in [place] 00 the Medical morning Branch and 2 tablets in the evening. busPIRone 2023-0 Yes [id number] 20mg Take 2 [place] 10 mg 1-17 tablets by ity of tablet 00:00: mouth in [place] 00 the Medical morning Branch and 2 tablets in the evening. busPIRone 2023-0 Yes [id number] 20mg Take 2 [place] 10 mg 1-17 tablets by ity of tablet 00:00: mouth in [place] 00 the Medical morning Branch and 2 tablets in the evening. busPIRone 2023-0 Yes [id number] 20mg Take 2 [place] 10 mg 1-17 tablets by ity of tablet 00:00: mouth in [place] 00 the Medical morning Branch and 2 tablets in the evening. busPIRone 2023-0 Yes [id number] 20mg Take 2 [place] 10 mg 1-17 tablets by ity of tablet 00:00: mouth in [place] 00 the Medical morning Branch and 2 tablets in the evening. busPIRone 2023-0 Yes [id number] 20mg Take 2 [place] 10 mg 1-17 tablets by ity of tablet 00:00: mouth in [place] 00 the Medical morning Branch and 2 tablets in the evening. busPIRone 2023-0 Yes [id number] 20mg Take 2 [place] 10 mg 1-17 tablets by ity of tablet 00:00: mouth in [place] 00 the Medical morning Branch and 2 tablets in the evening. busPIRone 2023-0 Yes [id number] 20mg Take 2 [place] 10 mg 1-17 tablets by ity of tablet 00:00: mouth in [place] 00 the Medical morning Branch and 2 tablets in the evening. busPIRone 2023-0 Yes [id number] 20mg Take 2 [place] 10 mg 1-17 tablets by ity of tablet 00:00: mouth in [place] 00 the Medical morning Branch and 2 tablets in the evening. busPIRone 2023-0 Yes [id number] 20mg Take 2 Un [place] 10 mg 1-17 tablets by ity of tablet 00:00: mouth in [place] 00 the Medical morning Branch and 2 tablets in the evening. busPIRone 2023-0 Yes [id number] 20mg Take 2 Un [place] 10 mg [...] EVERY 8 Medical HOURS Branch NEEDED sulfamethox 2023-0 Yes TAKE 1 Univ ers azole-trime 1-14 TABLET BY ity of thoprim 00:00: MOUTH [place] 800-160 mg 00 EVERY 12 Medic al per tablet HOURS FOR Bran ch 7 DAYS traMADoL 50 2022-0 Yes TAKE 1 Univ ers mg tablet 1-14 TABLET BY ity o f 00:00: MOUTH [place] 00 EVERY 8 Medical HOURS Branch NEEDED traMADoL 50 2023-0 Yes TAKE 1 Univ ers mg tablet [...] Pain (scale 1-3) (as directed). traMADoL 50 No 50mg Take 50 mg [facility] mg tablet 10-09 by mouth ity o f 00:00: 00:00 every 8 [place] 00 :00 (eight) Medical hours as Branch needed for Pain (scale 1-3) (as directed). traMADoL 50 No 50mg Take 50 mg Univers mg [...] 2022- No TAKE 1 Uni vers azole-trime 1-14 10-19 TABLET BY it y of thoprim 00:00: 00:00 MOUTH [place] 800-160 mg 00 :00 EVERY 12 Medic al per tablet HOURS FOR Bran ch 7 DAYS metroNIDAZO 2023-0 Yes [id number] 500mg Take 1 [facility] LE 500 mg 1-12 tablet by ity o f tablet 00:00: mouth in [place] 00 the Medical morning Branch and 1 tablet in the evening. dicyclomine 2023-0 Yes [id number] 20mg Take 1 [facility] 20 mg 1-12 tablet by ity of tablet 00:00: mouth [place] ([facility]) Medical times [place] daily. metroNIDAZO 2023-0 Yes [id number] 500mg Take 1 [facility] LE 500 mg 1-12 tablet by ity o f tablet 00:00: mouth in [place] the Medical morning Branch and 1 tablet in the evening. dicyclomine 2023-0 Yes [id number] 20mg Take 1 [facility] 20 mg 1-12 tablet by ity of tablet 00:00: mouth [place] ([facility]) Medical times [place] daily. metroNIDAZO 2023-0 Yes [id number] 500mg Take 1 [facility] LE 500 mg 1-12 tablet by ity o f tablet 00:00: mouth in [place] the Medical morning Branch and 1 tablet in the evening. dicyclomine 2023-0 Yes [id number] 20mg Take 1 [facility] 20 mg 1-12 tablet by ity of tablet 00:00: mouth [place] ([facility]) Medical times [place] daily. metroNIDAZO 2023-0 Yes [id number] 500mg Take 1 [facility] LE 500 mg 1-12 tablet by ity o f tablet 00:00: mouth in [place] the Medical morning Branch and 1 tablet in the evening. dicyclomine 2023-0 Yes [id number] 20mg Take 1 [facility] 20 mg 1-12 tablet by ity of tablet 00:00: mouth 4 [place] [address] ([facility]) Medical times [place] daily. metroNIDAZO 2023-0 Yes [id number] 500mg Take 1 [facility] LE 500 mg 1-12 tablet by ity o f tablet 00:00: mouth in [place] 00 the Medical morning Branch and 1 tablet in the evening. dicyclomine 2023-0 Yes [id number] 20mg Take 1 [facility] 20 mg 1-12 tablet by ity of tablet 00:00: mouth 4 [place] 00 ([facility]) Medical times Branch daily. metroNIDAZO 2023-0 Yes [id number] 500mg Take 1 [facility] LE 500 mg 1-12 tablet by ity o f tablet 00:00: mouth in [place] 00 the Medical morning Branch and 1 tablet in the evening. dicyclomine 2023-0 Yes [id number] 20mg Take 1 [facility] 20 mg 1-12 tablet by ity of tablet 00:00: mouth 4 [place] 00 ([facility]) Medical times [place] daily. metroNIDAZO 2023-0 2023- No [id number] 500mg Take 1 [facility] LE 500 mg 10-0724 tablet by ity of tablet 00:00: 00:00 mouth in [place] 00 :00 the Medical morning Branch and 1 tablet in the evening. dicyclomine 2023-0 2023- No [id number] 20mg Take 1 [facility] 20 mg -08 26-24 tablet by ity of tablet 00:00: 00:00 mouth 4 [place] 00 :00 ([facility]) Medical times [place] daily. metroNIDAZO 2023-0 2023- No [id number] 500mg Take 1 [facility] LE 500 mg -08 26-24 tablet by ity of tablet 00:00: 00:00 mouth in [place] 00 :00 the Medical morning Branch and 1 tablet in the evening. dicyclomine 2023-0 2023- No [id number] 20mg Take 1 [facility] 20 mg 10-07-24 tablet by ity of tablet 00:00: 00:00 mouth 4 [place] 00 :00 ([facility]) Medical times [place] daily. metroNIDAZO 2023-0 2023- No [id number] 500mg Take 1 [facility] LE 500 mg 10-07-24 tablet by ity of tablet 00:00: 00:00 mouth in [place] 00 :00 the Medical morning Branch and 1 tablet in the evening. dicyclomine 2023-0 2023- No [id number] 20mg Take 1 [facility] 20 mg -08 26-24 tablet by ity of tablet 00:00: 00:00 mouth 4 [place] 00 :00 (four) Medical times Branch daily. metroNIDAZO 2023-0 2023- No [id number] 500mg Take 1 [facility] LE 500 mg 10-07 tablet by ity of tablet 00:00: 00:00 mouth in [place] 00 :00 the Medical morning Branch and 1 tablet in the evening. dicyclomine 2023-0 2023- No [id number] 20mg Take 1 [facility] 20 mg 10-07 tablet by ity of tablet 00:00: 00:00 mouth 4 [place] 00 :00 ([facility]) Medical times [place] daily. metroNIDAZO 2023-0 2023- No [id number] 500mg Take 1 [facility] LE 500 mg 10-07 tablet by ity of tablet 00:00: 00:00 mouth in [place] 00 :00 the Medical morning Branch and 1 tablet in the evening. dicyclomine 2023-0 2023- No [id number] 20mg Take 1 [facility] 20 mg 10-07 tablet by ity of tablet 00:00: 00:00 mouth 4 [place] 00 :00 ([facility]) Medical times [place] daily. dicyclomine 2023-0 Yes 20mg Take 20 mg [facility] 20 mg 1-10 by mouth 4 ity of tablet 00:00: ([facility]) [place] [address] [facility] daily. Branch metoclopram 3-0 Yes TAKE 1 Univ ers dariela HCl 10 1-10 TABLET BY ity of mg tablet 00:00: [place] [address] EVERY 6 Medical HOURS (30 Branch MINUTES BEFORE MEALS AND AT BEDTIME) dicyclomine 2023-0 Yes 20mg Take 20 mg [facility] 20 mg 1-10 by mouth 4 ity of tablet 00:00: ([facility]) [place] [address] times Medical daily. Branch metoclopram 2023-0 Yes TAKE 1 Univ ers dariela HCl 10 1-10 TABLET BY ity of mg tablet 00:00: [facility] 00 EVERY 6 Medical HOURS (30 Branch MINUTES BEFORE MEALS AND AT BEDTIME) metoclopram 2023-0 Yes TAKE 1 Univ ers dariela HCl 10 1-10 TABLET BY ity of mg tablet 00:00: [facility] 00 EVERY 6 Medical HOURS (30 Branch MINUTES BEFORE MEALS AND AT BEDTIME) metoclopram 2023-0 Yes TAKE 1 Univ ers dariela HCl 10 1-10 TABLET BY ity of mg tablet 00:00: [place] [address] EVERY 6 Medical HOURS (30 Branch MINUTES [...] metoclopram 2023-0 Yes TAKE 1 Univ ers dareila HCl 10 1-10 TABLET BY ity of [...] MINUTES BEFORE MEALS AND AT BEDTIME) metoclopram 3-0 Yes TAKE 1 Univ ers dariela HCl 10 1-10 TABLET BY ity of mg tablet 00:00: MOUTH [place] 00 EVERY 6 Medical HOURS (30 Branch MINUTES BEFORE MEALS AND AT BEDTIME) metoclopram 3-0 Yes TAKE 1 Univ ers dariela HCl 10 1-10 TABLET BY ity of mg tablet 00:00: MOUTH [place] 00 EVERY 6 Medical HOURS (30 Branch MINUTES BEFORE MEALS AND AT BEDTIME) metoclopram 3-0 Yes TAKE 1 Univ ers dariela HCl 10 1-10 TABLET BY ity of mg tablet 00:00: MOUTH [place] 00 EVERY 6 Medical HOURS (30 Branch MINUTES BEFORE MEALS AND AT BEDTIME) dicyclomine 2022-0 2022- No 20mg Take 20 mg [facility] 20 mg -10 10-07 by mouth 4 ity of tablet [...] 2021-09- No TAKE 2 Uni vers te-atropine 11-1224 TABLETS BY i ty of 2.5-0.025 00:00: 00:00 MOUTH [place]CE [place] mg tablet 00 :00 DAILY Medica l NEEDED Branch diphenoxyla 2021-09- No TAKE 2 Uni vers te-atropine 11-1224 TABLETS BY i ty of 2.5-0.025 00:00: 00:00 MOUTH [place]CE [place] mg tablet 00 :00 DAILY Medica l NEEDED Branch pregabalin 2021-09 Yes [id number] 150mg Take 1 [facility] 150 mg 2-14 capsule by ity of capsule 00:00: mouth in [address] morning [place] and 1 capsule at noon and 1 capsule in the evening. pregabalin 2021-09 Yes [id number] 150mg Take 1 [facility] 150 mg 2-14 capsule by ity of capsule 00:00: mouth in [address] and 1 capsule at noon and 1 capsule in the evening. pregabalin 2021-09 Yes [id number] 150mg Take 1 [facility] 150 mg 2-14 capsule by ity of capsule 00:00: mouth in [address] morning [place] and 1 capsule at noon and 1 capsule in the evening. pregabalin 2021-09 Yes [id number] 150mg Take 1 [facility] 150 mg 2-14 capsule by ity of capsule 00:00: mouth in [address] morning [place] and 1 capsule at noon and 1 capsule in the evening. pregabalin 2021-09 Yes [id number] 150mg Take 1 [facility] 150 mg 2-14 capsule by ity of capsule 00:00: mouth in [address] morning [place] and 1 capsule at noon and 1 capsule in the evening. pregabalin 2021-09 Yes [id number] 150mg Take 1 [facility] 150 mg 2-14 capsule by ity of capsule 00:00: mouth in [address] morning [place] and 1 capsule at noon and 1 capsule in the evening. pregabalin 2021-09 Yes [id number] 150mg Take 1 [facility] 150 mg 2-14 capsule by ity of capsule 00:00: mouth in [place] 00 the Medical morning Branch and 1 capsule at noon and 1 capsule in the evening. pregabalin 2021-09 Yes [id number] 150mg Take 1 [facility] 150 mg 2-14 capsule by ity of capsule 00:00: mouth in [place] [address] [facility] morning [place] and 1 capsule at noon and 1 capsule in the evening. pregabalin 2021-09 Yes [id number] 150mg Take 1 [facility] 150 mg 2-14 capsule by ity of capsule 00:00: mouth in [place] [address] [facility] morning Branch and 1 capsule at noon and 1 capsule in the evening. pregabalin 2021-09 Yes [id number] 150mg Take 1 [facility] 150 mg 2-14 capsule by ity of capsule 00:00: mouth in [address] morning [place] and 1 capsule at noon and 1 capsule in the evening. pregabalin 2021-09 Yes [id number] 150mg Take 1 [facility] 150 mg 2-14 capsule by ity of capsule 00:00: mouth in [address] morning [place] and 1 capsule at noon and 1 capsule in the evening. pregabalin 2021-09 Yes [id number] 150mg Take 1 [facility] 150 mg 2-14 capsule by ity of capsule 00:00: mouth in [address] morning [place] and 1 capsule at noon and 1 capsule in the evening. pregabalin 2021-09- No [id number] 150mg Take 1 [facility] 150 mg 2-14 -24 capsule by ity of capsule 00:00: 00:00 mouth in [place] 00 :[address] [facility] morning [place] and 1 capsule at noon and 1 capsule in the evening. pregabalin 2021-09- No [id number] 150mg Take 1 [facility] 150 mg 2-14 -24 capsule by ity of capsule 00:00: 00:00 mouth in [place] 00 :[address] [facility] morning [place] and 1 capsule at noon and 1 capsule in the evening. pregabalin 2021-09- No [id number] 150mg Take 1 [facility] 150 mg 2-14 -24 capsule by ity of capsule 00:00: 00:00 mouth in [place] 00 :00 [facility] morning [place] and 1 capsule at noon and 1 capsule in the evening. pregabalin 2021-09- No [id number] 150mg Take 1 [facility] 150 mg 2-14 10-19 capsule by ity of capsule 00:00: 00:00 mouth in [place] 00 :00 the Medical morning Branch and 1 capsule at noon and 1 capsule in the evening. pregabalin 2021-09- No [id number] 150mg Take 1 [facility] 150 mg 2-10-19 capsule by ity of capsule 00:00: 00:00 mouth in [place] 00 :00 the Medical morning Branch and 1 capsule at noon and 1 capsule in the evening. montelukast 2021-09 Yes [id number] 10mg Take 1 [facility] (SINGULAIR) 2-09 tablet by ity of 10 mg 00:00: mouth in [place] tablet 00 the Medical morning. [place] montelukast 2021-09 Yes [id number] 10mg Take 1 [facility] (SINGULAIR) 2-09 tablet by ity of 10 mg 00:00: mouth in [place] tablet 00 the Medical morning. [place] montelukast 2021-09 Yes [id number] 10mg Take 1 [facility] (SINGULAIR) 2-09 tablet by ity of 10 mg 00:00: mouth in [place] tablet 00 the Medical morning. [place] montelust 2021-09 Yes [id number] 10mg Take 1 [facility] (SINGULAIR) 2-09 tablet by ity of 10 mg 00:00: mouth in [place] tablet 00 the Medical morning. [place] montelukast 2021-09 Yes [id number] 10mg Take 1 [facility] (SINGULAIR) 2-09 tablet by ity of 10 mg 00:00: mouth in [place] tablet 00 the Medical morning. [place] montelukast 2021-09 Yes [id number] 10mg Take 1 [facility] (SINGULAIR) 2-09 tablet by ity of 10 mg 00:00: mouth in [place] tablet 00 the Medical morning. [place] montelukast 2021-09 Yes [id number] 10mg Take 1 [facility] (SINGULAIR) 2-09 tablet by ity of 10 mg 00:00: mouth in [place] tablet 00 the Medical morning. [place] montelukast 2021-09 Yes [id number] 10mg Take 1 [facility] (SINGULAIR) 2-09 tablet by ity of 10 mg 00:00: mouth in [place] tablet 00 the Medical morning. [place] montelust 2021-09 Yes [id number] 10mg Take 1 [facility] (SINGULAIR) 2-09 tablet by ity of 10 mg 00:00: mouth in [place] tablet 00 the Medical morning. [facility] 2021-09 Yes [id number] 10mg Take 1 [facility] (SINGULAIR) 2-09 tablet by ity of 10 mg 00:00: mouth in [place] tablet 00 the Medical morning. [facility] 2021-09 Yes [id number] 10mg Take 1 [facility] (SINGULAIR) 2-09 tablet by ity of 10 mg 00:00: mouth in [place] tablet 00 the Medical morning. [facility] 2021-09 Yes [id number] 10mg Take 1 [facility] (SINGULAIR) 2-09 tablet by ity of 10 mg 00:00: mouth in [place] tablet 00 the Medical morning. [facility] 2021-09 Yes [id number] 10mg Take 1 [facility] (SINGULAIR) 2-09 tablet by ity of 10 mg 00:00: mouth in [place] tablet 00 the Medical morning. [facility] 2021-09 Yes [id number] 10mg Take 1 [facility] (SINGULAIR) 2-09 tablet by ity of 10 mg 00:00: mouth in [place] tablet 00 the Medical morning. [facility] 2021-09 Yes [id number] 10mg Take 1 [facility] (SINGULAIR) 2-09 tablet by ity of 10 mg 00:00: mouth in [place] tablet 00 the Medical morning. [facility] 2021-09 Yes [id number] 10mg Take 1 [facility] (SINGULAIR) 2-09 tablet by ity of 10 mg 00:00: mouth in [place] tablet 00 the Medical morning. [facility] 2021-09 Yes [id number] 10mg Take 1 [facility] (SINGULAIR) 2-09 tablet by ity of 10 mg 00:00: mouth in [place] tablet 00 the Medical morning. [facility] 2021-09 Yes [id number] 10mg Take 1 [facility] (SINGULAIR) 2-09 tablet by ity of 10 mg 00:00: mouth in [place] tablet 00 the Medical morning. [facility] 2021-09 Yes [id number] 10mg Take 1 [facility] (SINGULAIR) 2-09 tablet by ity of 10 mg 00:00: mouth in [place] tablet 00 the Medical morning. [facility] 2021-09 Yes [id number] 10mg Take 1 [facility] (SINGULAIR) 2-09 tablet by ity of 10 mg 00:00: mouth in [place] tablet 00 the Medical morning. [facility] 2021-09 Yes [id number] 10mg Take 1 [facility] (SINGULAIR) 2-09 tablet by ity of 10 mg 00:00: mouth in [place] tablet 00 the Medical morning. [facility] 2021-09 Yes [id number] 10mg Take 1 [facility] (SINGULAIR) 2-09 tablet by ity of 10 mg 00:00: mouth in [place] tablet 00 the Medical morning. [facility] 2021-09 Yes [id number] 10mg Take 1 [facility] (SINGULAIR) 2-09 tablet by ity of 10 mg 00:00: mouth in [place] tablet 00 the Medical morning. [facility] 2021-09 Yes [id number] 10mg Take 1 [facility] (SINGULAIR) 2-09 tablet by ity of 10 mg 00:00: mouth in [place] tablet 00 the Medical morning. [facility] 2021-09 Yes [id number] 10mg Take 1 [facility] (SINGULAIR) 2-09 tablet by ity of 10 mg 00:00: mouth in [place] tablet 00 the Medical morning. [facility] 2021-09 Yes [id number] 10mg Take 1 [facility] (SINGULAIR) 2-09 tablet by ity of 10 mg 00:00: mouth in [place] tablet 00 the Medical morning. [facility] 2021-09 Yes [id number] 10mg Take 1 [facility] (SINGULAIR) 2-09 tablet by ity of 10 mg 00:00: mouth in [place] tablet 00 the Medical morning. [facility] 2021-09 Yes [id number] 10mg Take 1 [facility] (SINGULAIR) 2-09 tablet by ity of 10 mg 00:00: mouth in [place] tablet 00 the Medical morning. [facility] 2021-09 Yes [id number] 10mg Take 1 [facility] (SINGULAIR) 2-09 tablet by ity of 10 mg 00:00: mouth in [place] tablet 00 the Medical morning. [facility] 2021-09 Yes [id number] 10mg Take 1 [facility] (SINGULAIR) 2-09 tablet by ity of 10 mg 00:00: mouth in [place] tablet 00 the Medical morning. [facility] 2021-09 Yes [id number] 10mg Take 1 [facility] (SINGULAIR) 2-09 tablet by ity of 10 mg 00:00: mouth in [place] tablet 00 the Medical morning. [facility] 2021-09 Yes [id number] 10mg Take 1 [facility] (SINGULAIR) 2-09 tablet by ity of 10 mg 00:00: mouth in [place] tablet 00 the Medical morning. [facility] 2021-09 Yes [id number] 10mg Take 1 [facility] (SINGULAIR) 2-09 tablet by ity of 10 mg 00:00: mouth in [place] tablet 00 the Medical morning. [facility] 2021-09 Yes [id number] 10mg Take 1 [facility] (SINGULAIR) 2-09 tablet by ity of 10 mg 00:00: mouth in [place] tablet 00 the Medical morning. [facility] 2021-09 Yes [id number] 10mg Take 1 [facility] (SINGULAIR) 2-09 tablet by ity of 10 mg 00:00: mouth in [place] tablet 00 the Medical morning. [facility] 2021-09 Yes [id number] 10mg Take 1 [facility] (SINGULAIR) 2-09 tablet by ity of 10 mg 00:00: mouth in [place] tablet 00 the Medical morning. [facility] 2021-09 Yes [id number] 10mg Take 1 [facility] (SINGULAIR) 2-09 tablet by ity of 10 mg 00:00: mouth in [place] tablet 00 the Medical morning. [facility] 2021-09 Yes [id number] 10mg Take 1 [facility] (SINGULAIR) 2-09 tablet by ity of 10 mg 00:00: mouth in [place] tablet 00 the Medical morning. [facility] 2021-09 Yes [id number] 10mg Take 1 [facility] (SINGULAIR) 2-09 tablet by ity of 10 mg 00:00: mouth in [place] tablet 00 the Medical morning. [facility] 2021-09 Yes [id number] 10mg Take 1 [facility] (SINGULAIR) 2-09 tablet by ity of 10 mg 00:00: mouth in [place] tablet 00 the Medical morning. [facility] 2021-09 Yes [id number] 10mg Take 1 [facility] (SINGULAIR) 2-09 tablet by ity of 10 mg 00:00: mouth in [place] tablet 00 the Medical morning. [facility] 2021-09 Yes [id number] 10mg Take 1 [facility] (SINGULAIR) 2-09 tablet by ity of 10 mg 00:00: mouth in [place] tablet 00 the Medical morning. [facility] 2021-09 Yes [id number] 10mg Take 1 [facility] (SINGULAIR) 2-09 tablet by ity of 10 mg 00:00: mouth in [place] tablet 00 the Medical morning. [facility] 2021-09 Yes [id number] 10mg Take 1 [facility] (SINGULAIR) 2-09 tablet by ity of 10 mg 00:00: mouth in [place] tablet 00 the Medical morning. [facility] 2021-09 Yes [id number] 10mg Take 1 [facility] (SINGULAIR) 2-09 tablet by ity of 10 mg 00:00: mouth in [place] tablet 00 the Medical morning. [facility] 2021-09 Yes [id number] 10mg Take 1 [facility] (SINGULAIR) 2-09 tablet by ity of 10 mg 00:00: mouth in [place] tablet 00 the Medical morning. [facility] 2021-09 Yes [id number] 10mg Take 1 [facility] (SINGULAIR) 2-09 tablet by ity of 10 mg 00:00: mouth in [place] tablet 00 the Medical morning. [facility] 2021-09 Yes [id number] 10mg Take 1 [facility] (SINGULAIR) 2-09 tablet by ity of 10 mg 00:00: mouth in [place] tablet 00 the Medical morning. [facility] 2021-09 Yes [id number] 10mg Take 1 [facility] (SINGULAIR) 2-09 tablet by ity of 10 mg 00:00: mouth in [place] tablet 00 the Medical morning. [facility] 2021-09 Yes [id number] 10mg Take 1 [facility] (SINGULAIR) 2-09 tablet by ity of 10 mg 00:00: mouth in [place] tablet 00 the Medical morning. [facility] 2021-09 Yes [id number] 10mg Take 1 [facility] (SINGULAIR) 2-09 tablet by ity of 10 mg 00:00: mouth in [place] tablet 00 the Medical morning. [place] montelukast 2021-09 Yes [id number] 10mg Take 1 [facility] (SINGULAIR) 2-09 tablet by ity of 10 mg 00:00: mouth in [place] tablet 00 the Medical morning. [place] montelust 2021-09 Yes [id number] 10mg Take 1 [facility] (SINGULAIR) 2-09 tablet by ity of 10 mg 00:00: mouth in [place] tablet 00 the Medical morning. [place] montelukast 2021-09 Yes [id number] 10mg Take 1 [facility] (SINGULAIR) 2-09 tablet by ity of 10 mg 00:00: mouth in [place] tablet 00 the Medical morning. [place] montelukast 2021-09 Yes [id number] 10mg Take 1 [facility] (SINGULAIR) 2-09 tablet by ity of 10 mg 00:00: mouth in [place] tablet 00 the Medical morning. [facility] [id number] 10mg Take 1 [facility] (SINGULAIR) 2-09 tablet by ity of 10 mg 00:00: mouth in [place] tablet 00 the Medical morning. [facility] Yes [id number] 10mg Take 1 [facility] (SINGULAIR) 2-09 tablet by ity of 10 mg 00:00: mouth in [place] tablet 00 the Medical morning. [facility] Yes [id number] 10mg Take 1 [facility] (SINGULAIR) 2-09 tablet by ity of 10 mg 00:00: mouth in [place] tablet 00 the Medical morning. [place] famotidine 2021-09 Yes TAKE 1 Unive rs [...] :00 DAILY FOR Medical 7 DAYS Branch famotidine 2021-09- No TAKE 1 Univ ers 20 mg 10-28 TABLET BY ity of tablet 00:00: 00:00 MOUTH [place] 00 :00 EVERY 12 Medical HOURS FOR Branch 10 DAYS famotidine 2021-09- No TAKE 1 Univ ers 20 mg 10-28 TABLET BY ity of tablet 00:00: 00:00 MOUTH [place] 00 :00 EVERY 12 Medical HOURS FOR Branch 10 DAYS CYANOCOBALA 2021-09 Yes [id number] INJECT 1ML Univers MIN 1,000 1-30 INTRAMUSCU ity of mcg/mL 00:00: LARLY [place] injection 00 EVERY TWO Medic al WEEKS Branch CYANOCOBALA 2021-09 Yes [id number] INJECT 1ML Univers MIN 1,000 1-30 INTRAMUSCU ity of mcg/mL 00:00: LARLY [place] injection 00 EVERY TWO Medic al WEEKS Branch CYANOCOBALA 2021-09 Yes [id number] INJECT 1ML [facility] MIN 1,000 1-30 INTRAMUSCU ity of mcg/mL 00:00: LARLY [place] injection 00 EVERY TWO Medic al WEEKS Branch CYANOCOBALA 2021-09 Yes [id number] INJECT 1ML [facility] MIN 1,000 1-30 INTRAMUSCU ity of mcg/mL 00:00: LARLY [place] injection 00 EVERY TWO Medic al WEEKS Branch CYANOCOBALA 2021-09 Yes [id number] INJECT 1ML [facility] MIN 1,000 1-30 INTRAMUSCU ity of mcg/mL 00:00: LARLY [place] injection 00 EVERY TWO Medic al WEEKS Branch CYANOCOBALA 2021-09 Yes [id number] INJECT 1ML [facility] MIN 1,000 1-30 INTRAMUSCU ity of mcg/mL 00:00: LARLY [place] injection 00 EVERY TWO Medic al WEEKS Branch CYANOCOBALA 2021-09 Yes [id number] INJECT 1ML [facility] MIN 1,000 1-30 INTRAMUSCU ity of mcg/mL 00:00: LARLY [place] injection 00 EVERY TWO Medic al WEEKS Branch CYANOCOBALA 2021-09 Yes [id number] INJECT 1ML [facility] MIN 1,000 1-30 INTRAMUSCU ity of mcg/mL 00:00: LARLY [place] injection 00 EVERY TWO Medic al WEEKS Branch CYANOCOBALA 2021-09 Yes [id number] INJECT 1ML [facility] MIN 1,000 1-30 INTRAMUSCU ity of mcg/mL 00:00: LARLY [place] injection 00 EVERY TWO Medic al WEEKS Branch CYANOCOBALA 2021-09 Yes [id number] INJECT 1ML [facility] MIN 1,000 1-30 INTRAMUSCU ity of mcg/mL 00:00: LARLY [place] injection 00 EVERY TWO Medic al WEEKS Branch CYANOCOBALA 2021-09 Yes [id number] INJECT 1ML [facility] MIN 1,000 1-30 INTRAMUSCU ity of mcg/mL 00:00: LARLY [place] injection 00 EVERY TWO Medic al WEEKS Branch CYANOCOBALA 2021-09 Yes [id number] INJECT 1ML [facility] MIN 1,000 1-30 INTRAMUSCU ity of mcg/mL 00:00: LARLY [place] injection 00 EVERY TWO Medic al WEEKS Branch CYANOCOBALA 2021-09 Yes [id number] INJECT 1ML [facility] MIN 1,000 1-30 INTRAMUSCU ity of mcg/mL 00:00: LARLY [place] injection 00 EVERY TWO Medic al WEEKS Branch CYANOCOBALA 2021-09 Yes [id number] INJECT 1ML [facility] MIN 1,000 1-30 INTRAMUSCU ity of mcg/mL 00:00: LARLY [place] injection 00 EVERY TWO Medic al WEEKS Branch CYANOCOBALA 2021-09 Yes [id number] INJECT 1ML [facility] MIN 1,000 1-30 INTRAMUSCU ity of mcg/mL 00:00: LARLY [place] injection 00 EVERY TWO Medic al WEEKS Branch CYANOCOBALA 2021-09 Yes [id number] INJECT 1ML [facility] MIN 1,000 1-30 INTRAMUSCU ity of mcg/mL 00:00: LARLY [place] injection 00 EVERY TWO Medic al WEEKS Branch CYANOCOBALA 2021-09 Yes [id number] INJECT 1ML [facility] MIN 1,000 1-30 INTRAMUSCU ity of mcg/mL 00:00: LARLY [place] injection 00 EVERY TWO Medic al WEEKS Branch CYANOCOBALA 2021-09 Yes [id number] INJECT 1ML [facility] MIN 1,000 1-30 INTRAMUSCU ity of mcg/mL 00:00: LARLY [place] injection 00 EVERY TWO Medic al WEEKS Branch CYANOCOBALA 2021-09 Yes [id number] INJECT 1ML [facility] MIN 1,000 1-30 INTRAMUSCU ity of mcg/mL 00:00: LARLY [place] injection 00 EVERY TWO Medic al WEEKS Branch CYANOCOBALA 2021-09 Yes [id number] INJECT 1ML [facility] MIN 1,000 1-30 INTRAMUSCU ity of mcg/mL 00:00: LARLY [place] injection 00 EVERY TWO Medic al WEEKS Branch CYANOCOBALA 2021-09 Yes [id number] INJECT 1ML [facility] MIN 1,000 1-30 INTRAMUSCU ity of mcg/mL 00:00: LARLY [place] injection 00 EVERY TWO Medic al WEEKS Branch CYANOCOBALA 2021-09 Yes [id number] INJECT 1ML [facility] MIN 1,000 1-30 INTRAMUSCU ity of mcg/mL 00:00: LARLY [place] injection 00 EVERY TWO Medic al WEEKS Branch CYANOCOBALA 2021-09 Yes [id number] INJECT 1ML [facility] MIN 1,000 1-30 INTRAMUSCU ity of mcg/mL 00:00: LARLY [place] injection 00 EVERY TWO Medic al WEEKS Branch CYANOCOBALA 2021-09 Yes [id number] INJECT 1ML [facility] MIN 1,000 1-30 INTRAMUSCU ity of mcg/mL 00:00: LARLY [place] injection 00 EVERY TWO Medic al WEEKS Branch CYANOCOBALA 2021-09 Yes [id number] INJECT 1ML [facility] MIN 1,000 1-30 INTRAMUSCU ity of mcg/mL 00:00: LARLY [place] injection 00 EVERY TWO Medic al WEEKS Branch CYANOCOBALA 2021-09 Yes [id number] INJECT 1ML [facility] MIN 1,000 1-30 INTRAMUSCU ity of mcg/mL 00:00: LARLY [place] injection 00 EVERY TWO Medic al WEEKS Branch CYANOCOBALA 2021-09 Yes [id number] INJECT 1ML [facility] MIN 1,000 1-30 INTRAMUSCU ity of mcg/mL 00:00: LARLY [place] injection 00 EVERY TWO Medic al WEEKS Branch CYANOCOBALA 2021-09 Yes [id number] INJECT 1ML [facility] MIN 1,000 1-30 INTRAMUSCU ity of mcg/mL 00:00: LARLY [place] injection 00 EVERY TWO Medic al WEEKS Branch CYANOCOBALA 2021-09 Yes [id number] INJECT 1ML [facility] MIN 1,000 1-30 INTRAMUSCU ity of mcg/mL 00:00: LARLY [place] injection 00 EVERY TWO Medic al WEEKS Branch CYANOCOBALA 2021-09 Yes [id number] INJECT 1ML [facility] MIN 1,000 1-30 INTRAMUSCU ity of mcg/mL 00:00: LARLY [place] injection 00 EVERY TWO Medic al WEEKS Branch CYANOCOBALA 2021-09 Yes [id number] INJECT 1ML [facility] MIN 1,000 1-30 INTRAMUSCU ity of mcg/mL 00:00: LARLY [place] injection 00 EVERY TWO Medic al WEEKS Branch CYANOCOBALA 2021-09 Yes [id number] INJECT 1ML [facility] MIN 1,000 1-30 INTRAMUSCU ity of mcg/mL 00:00: LARLY [place] injection 00 EVERY TWO Medic al WEEKS Branch CYANOCOBALA 2021-09 Yes [id number] INJECT 1ML [facility] MIN 1,000 1-30 INTRAMUSCU ity of mcg/mL 00:00: LARLY [place] injection 00 EVERY TWO Medic al WEEKS Branch CYANOCOBALA 2021-09- No [id number] INJECT 1ML [facility] MIN 1,000 1-30 02-07 INTRAMUSCU ity of mcg/mL 00:00: 00:00 LARLY [place] injection 00 :00 EVERY TWO Medic al WEEKS Branch CYANOCOBALA 2021-09- No [id number] INJECT 1ML [facility] MIN 1,000 1-30 02-07 INTRAMUSCU ity of mcg/mL 00:00: 00:00 LARLY [place] injection 00 :00 EVERY TWO Medic al WEEKS Branch CYANOCOBALA 2021-09- No [id number] INJECT 1ML [facility] MIN 1,000 1-30 02-07 INTRAMUSCU ity of mcg/mL 00:00: 00:00 LARLY [place] injection 00 :00 EVERY TWO Medic al WEEKS Branch CYANOCOBALA 2021-09- No [id number] INJECT 1ML [facility] MIN 1,000 1-30 02-07 INTRAMUSCU ity of mcg/mL 00:00: 00:00 LARLY [place] injection 00 :00 EVERY TWO Medic al WEEKS Branch CYANOCOBALA 2021-09- No [id number] INJECT 1ML [facility] MIN 1,000 1-30 02-07 INTRAMUSCU ity of mcg/mL 00:00: 00:00 LARLY [place] injection 00 :00 EVERY TWO Medic al WEEKS Branch CYANOCOBALA 2021-09- No [id number] INJECT 1ML [facility] MIN 1,000 1-30 02-07 INTRAMUSCU ity of mcg/mL 00:00: 00:00 LARLY [place] injection 00 :00 EVERY TWO Medic al WEEKS Branch CYANOCOBALA 2021-09- No [id number] INJECT 1ML [facility] MIN 1,000 1-30 02-07 INTRAMUSCU ity of mcg/mL 00:00: 00:00 LARLY [place] injection 00 :00 EVERY TWO Medic al WEEKS Branch CYANOCOBALA 2021-09- No [id number] INJECT 1ML [facility] MIN 1,000 1-30 02-07 INTRAMUSCU ity of mcg/mL 00:00: 00:00 LARLY [place] injection 00 :00 EVERY TWO Medic al WEEKS Branch CYANOCOBALA 2021-09- No [id number] INJECT 1ML [facility] MIN 1,000 1-30 02-07 INTRAMUSCU ity of mcg/mL 00:00: 00:00 LARLY [place] injection 00 :00 EVERY TWO Medic al WEEKS Branch CYANOCOBALA 2021-09- No [id number] INJECT 1ML [facility] MIN 1,000 1-30 02-07 INTRAMUSCU ity of mcg/mL 00:00: 00:00 LARLY [place] injection 00 :00 EVERY TWO Medic al WEEKS Branch CYANOCOBALA 2021-09- No [id number] INJECT 1ML [facility] MIN 1,000 1-30 02-07 INTRAMUSCU ity of mcg/mL 00:00: 00:00 LARLY [place] injection 00 :00 EVERY TWO Medic al WEEKS Branch CYANOCOBALA 2021-09- No [id number] INJECT 1ML [facility] MIN 1,000 1-30 02-07 INTRAMUSCU ity of mcg/mL 00:00: 00:00 LARLY [place] injection 00 :00 EVERY TWO Medic al WEEKS Branch CYANOCOBALA 2021-09- No [id number] INJECT 1ML [facility] MIN 1,000 1-30 02-07 INTRAMUSCU ity of mcg/mL 00:00: 00:00 LARLY [place] injection 00 :00 EVERY TWO Medic al WEEKS Branch CYANOCOBALA 2021-093- No [id number] INJECT 1ML [facility] MIN 1,000 130 - INTRAMUSCU ity of mcg/mL 00:00: 00:00 LARLY [...] tablet 1-22 TABLET BY ity of 00:00: [facility] EVERY 12 Medical HOURS Branch NEEDED ondansetron 2022-1 Yes TAKE 1 Univ ers 4 mg tablet 1-22 TABLET BY ity of 00:00: [facility] EVERY 12 Medical HOURS Branch NEEDED ondansetron [...] tablet 1-22 TABLET BY ity of 00:00: [facility] EVERY 12 Medical HOURS Branch NEEDED ondansetron [...] MOUTH EVERY 12 Medical HOURS Branch NEEDED naproxen [...] by ity of tablet 00:00: mouth in [place] [address] the Medical morning Branch and 500 mg in the evening. Take with meals. naproxen 2-1 Yes 500mg Take 500 Univ ers 500 mg 1-18 mg by ity of tablet 00:00: mouth in [place] [address] the Medical morning Branch and 500 mg [...] the evening. Take with meals. naproxen 2-1 3- No 500mg Take 500 Uni vers 500 mg 1-18 01-23 mg by ity of tablet 00:00: 00:00 mouth in [place] 00 :00 the Medical morning Branch and 500 mg in the evening. Take with meals. naproxen 2-1 3- No 500mg Take 500 [facility] vers 500 mg 1-18 01-23 mg by ity of tablet 00:00: 00:00 mouth in [place] 00 :00 the Medical morning Branch and 500 mg in the evening. Take with meals. naproxen 2-1 3- No 500mg Take 500 [facility] vers 500 mg 1-18 01-23 mg by ity of tablet 00:00: 00:00 mouth in [place] 00 :00 the Medical morning Branch and 500 mg in the evening. Take with meals. naproxen 2021-09 No 500mg Take 500 [facility] vers 500 mg 1-18 -23 mg by ity of tablet 00:00: 00:00 mouth in [place] 00 :00 the Medical morning Branch and 500 mg in the evening. Take with meals. levothyroxi 2021-09 Yes [id number] 50ug Take 1 [facility] ne 50 mcg 1-03 tablet by ity o f tablet 00:00: mouth [place] 00 every Medical morning. Branch levothyroxi 2021-09 Yes [id number] 50ug Take 1 [facility] ne 50 mcg 1-03 tablet by ity o f tablet 00:00: mouth [place] 00 every Medical morning. Branch levothyroxi 2021-09 Yes [id number] 50ug Take 1 [facility] ne 50 mcg 1-03 tablet by ity o f tablet 00:00: mouth [place] 00 every Medical morning. Branch levothyroxi 2021-09 Yes [id number] 50ug Take 1 [facility] ne 50 mcg 1-03 tablet by ity o f tablet 00:00: mouth [place] 00 every Medical morning. Branch levothyroxi 2021-09 Yes [id number] 50ug Take 1 [facility] ne 50 mcg 1-03 tablet by ity o f tablet 00:00: mouth [place] 00 every Medical morning. [place] levothyroxi 2021-09 Yes [id number] 50ug Take 1 [facility] ne 50 mcg 1-03 tablet by ity o f tablet 00:00: mouth [place] 00 every Medical morning. Branch levothyroxi 2021-09 Yes [id number] 50ug Take 1 [facility] ne 50 mcg 1-03 tablet by ity o f tablet 00:00: mouth [place] 00 every Medical morning. Branch levothyroxi 2021-09 Yes [id number] 50ug Take 1 [facility] ne 50 mcg 1-03 tablet by ity o f tablet 00:00: mouth [place] 00 every Medical morning. Branch levothyroxi 2021-09 Yes [id number] 50ug Take 1 [facility] ne 50 mcg 1-03 tablet by ity o f tablet 00:00: mouth [place] 00 every Medical morning. Branch levothyroxi 2021-09 Yes [id number] 50ug Take 1 [facility] ne 50 mcg 1-03 tablet by ity o f tablet 00:00: mouth [place] 00 every Medical morning. Branch levothyroxi 2021-09 Yes [id number] 50ug Take 1 [facility] ne 50 mcg 1-03 tablet by ity o f tablet 00:00: mouth [place] 00 every Medical morning. Branch levothyroxi 2021-09 Yes [id number] 50ug Take 1 [facility] ne 50 mcg 1-03 tablet by ity o f tablet 00:00: mouth [place] 00 every Medical morning. Branch levothyroxi 2021-09 Yes [id number] 50ug Take 1 [facility] ne 50 mcg 1-03 tablet by ity o f tablet 00:00: mouth [place] 00 every Medical morning. Branch levothyroxi 2021-09 Yes [id number] 50ug Take 1 [facility] ne 50 mcg 1-03 tablet by ity o f tablet 00:00: mouth [place] 00 every Medical morning. Branch levothyroxi 2021-09 Yes [id number] 50ug Take 1 [facility] ne 50 mcg 1-03 tablet by ity o f tablet 00:00: mouth [place] 00 every Medical morning. Branch levothyroxi 2021-09 Yes [id number] 50ug Take 1 [facility] ne 50 mcg 1-03 tablet by ity o f tablet 00:00: mouth [place] 00 every Medical morning. Branch levothyroxi 2021-09 Yes [id number] 50ug Take 1 [facility] ne 50 mcg 1-03 tablet by ity o f tablet 00:00: mouth [place] 00 every Medical morning. Branch levothyroxi 2021-09 Yes [id number] 50ug Take 1 [facility] ne 50 mcg 1-03 tablet by ity o f tablet 00:00: mouth [place] 00 every Medical morning. Branch levothyroxi 2021-09 Yes [id number] 50ug Take 1 [facility] ne 50 mcg 1-03 tablet by ity o f tablet 00:00: mouth [place] 00 every Medical morning. Branch levothyroxi 2021-09 Yes [id number] 50ug Take 1 [facility] ne 50 mcg 1-03 tablet by ity o f tablet 00:00: mouth [place] 00 every Medical morning. Branch levothyroxi 2021-09 Yes [id number] 50ug Take 1 [facility] ne 50 mcg 1-03 tablet by ity o f tablet 00:00: mouth [place] 00 every Medical morning. Branch levothyroxi 2021-09 Yes [id number] 50ug Take 1 [facility] ne 50 mcg 1-03 tablet by ity o f tablet 00:00: mouth [place] 00 every Medical morning. Branch levothyroxi 2021-09 Yes [id number] 50ug Take 1 [facility] ne 50 mcg 1-03 tablet by ity o f tablet 00:00: mouth [place] 00 every Medical morning. Branch levothyroxi 2021-09 Yes [id number] 50ug Take 1 [facility] ne 50 mcg 1-03 tablet by ity o f tablet 00:00: mouth [place] 00 every Medical morning. Branch levothyroxi 2021-09 Yes [id number] 50ug Take 1 [facility] ne 50 mcg 1-03 tablet by ity o f tablet 00:00: mouth [place] 00 every Medical morning. Branch levothyroxi 2021-09 Yes [id number] 50ug Take 1 [facility] ne 50 mcg 1-03 tablet by ity o f tablet 00:00: mouth [place] 00 every Medical morning. Branch levothyroxi 2021-09 Yes [id number] 50ug Take 1 [facility] ne 50 mcg 1-03 tablet by ity o f tablet 00:00: mouth [place] 00 every Medical morning. Branch levothyroxi 2021-09 Yes [id number] 50ug Take 1 [facility] ne 50 mcg 1-03 tablet by ity o f tablet 00:00: mouth [place] 00 every Medical morning. Branch levothyroxi 2021-09 Yes [id number] 50ug Take 1 [facility] ne 50 mcg 1-03 tablet by ity o f tablet 00:00: mouth [place] 00 every Medical morning. Branch levothyroxi 2021-09 Yes [id number] 50ug Take 1 [facility] ne 50 mcg 1-03 tablet by ity o f tablet 00:00: mouth [place] 00 every Medical morning. Branch levothyroxi 2021-09 Yes [id number] 50ug Take 1 [facility] ne 50 mcg 1-03 tablet by ity o f tablet 00:00: mouth [place] 00 every Medical morning. Branch levothyroxi 2021-09 Yes [id number] 50ug Take 1 [facility] ne 50 mcg 1-03 tablet by ity o f tablet 00:00: mouth [place] 00 every Medical morning. Branch levothyroxi 2021-09 Yes [id number] 50ug Take 1 [facility] ne 50 mcg 1-03 tablet by ity o f tablet 00:00: mouth [place] 00 every Medical morning. Branch levothyroxi 2021-09 Yes [id number] 50ug Take 1 [facility] ne 50 mcg 1-03 tablet by ity o f tablet 00:00: mouth [place] 00 every Medical morning. Branch levothyroxi 2021-09 Yes [id number] 50ug Take 1 [facility] ne 50 mcg 1-03 tablet by ity o f tablet 00:00: mouth [place] 00 every Medical morning. Branch levothyroxi 2021-09 Yes [id number] 50ug Take 1 [facility] ne 50 mcg 1-03 tablet by ity o f tablet 00:00: mouth [place] 00 every Medical morning. Branch levothyroxi 2021-09 Yes [id number] 50ug Take 1 [facility] ne 50 mcg 1-03 tablet by ity o f tablet 00:00: mouth [place] 00 every Medical morning. Branch levothyroxi 2021-09 Yes [id number] 50ug Take 1 [facility] ne 50 mcg 1-03 tablet by ity o f tablet 00:00: mouth [place] 00 every Medical morning. Branch levothyroxi 2021-09 Yes [id number] 50ug Take 1 [facility] ne 50 mcg 1-03 tablet by ity o f tablet 00:00: mouth [place] 00 every Medical morning. Branch levothyroxi 2021-09 Yes [id number] 50ug Take 1 [facility] ne 50 mcg 1-03 tablet by ity o f tablet 00:00: mouth [place] 00 every Medical morning. Branch levothyroxi 2021-09 Yes [id number] 50ug Take 1 [facility] ne 50 mcg 1-03 tablet by ity o f tablet 00:00: mouth [place] 00 every Medical morning. Branch levothyroxi 2021-09 Yes [id number] 50ug Take 1 [facility] ne 50 mcg 1-03 tablet by ity o f tablet 00:00: mouth [place] 00 every Medical morning. Branch levothyroxi 2021-09 Yes [id number] 50ug Take 1 [facility] ne 50 mcg 1-03 tablet by ity o f tablet 00:00: mouth [place] 00 every Medical morning. Branch levothyroxi 2021-09 Yes [id number] 50ug Take 1 [facility] ne 50 mcg 1-03 tablet by ity o f tablet 00:00: mouth [place] 00 every Medical morning. Branch levothyroxi 2021-09 Yes [id number] 50ug Take 1 [facility] ne 50 mcg 1-03 tablet by ity o f tablet 00:00: mouth [place] 00 every Medical morning. Branch levothyroxi 2021-09 Yes [id number] 50ug Take 1 [facility] ne 50 mcg 1-03 tablet by ity o f tablet 00:00: mouth [place] 00 every Medical morning. Branch levothyroxi 2021-09 Yes [id number] 50ug Take 1 [facility] ne 50 mcg 1-03 tablet by ity o f tablet 00:00: mouth [place] 00 every Medical morning. Branch levothyroxi 2021-09 Yes [id number] 50ug Take 1 [facility] ne 50 mcg 1-03 tablet by ity o f tablet 00:00: mouth [place] 00 every Medical morning. Branch levothyroxi 2021-09 Yes [id number] 50ug Take 1 [facility] ne 50 mcg 1-03 tablet by ity o f tablet 00:00: mouth [place] 00 every Medical morning. Branch levothyroxi 2021-09 Yes [id number] 50ug Take 1 [facility] ne 50 mcg 1-03 tablet by ity o f tablet 00:00: mouth [place] 00 every Medical morning. Branch levothyroxi 2021-09 Yes [id number] 50ug Take 1 [facility] ne 50 mcg 1-03 tablet by ity o f tablet 00:00: mouth [place] 00 every Medical morning. Branch levothyroxi 2021-09 Yes [id number] 50ug Take 1 [facility] ne 50 mcg 1-03 tablet by ity o f tablet 00:00: mouth [place] 00 every Medical morning. Branch levothyroxi 2021-09 Yes [id number] 50ug Take 1 [facility] ne 50 mcg 1-03 tablet by ity o f tablet 00:00: mouth [place] 00 every Medical morning. Branch levothyroxi 2021-09 Yes [id number] 50ug Take 1 [facility] ne 50 mcg 1-03 tablet by ity o f tablet 00:00: mouth [place] 00 every Medical morning. Branch levothyroxi 2021-09 Yes [id number] 50ug Take 1 [facility] ne 50 mcg 1-03 tablet by ity o f tablet 00:00: mouth [place] 00 every Medical morning. Branch levothyroxi 2021-09 Yes [id number] 50ug Take 1 [facility] ne 50 mcg 1-03 tablet by ity o f tablet 00:00: mouth [place] 00 every Medical morning. Branch levothyroxi 2021-09 Yes [id number] 50ug Take 1 [facility] ne 50 mcg 1-03 tablet by ity o f tablet 00:00: mouth [place] 00 every Medical morning. Branch levothyroxi 2021-09 Yes [id number] 50ug Take 1 [facility] ne 50 mcg 1-03 tablet by ity o f tablet 00:00: mouth [place] 00 every Medical morning. Branch levothyroxi 2021-09 Yes [id number] 50ug Take 1 [facility] ne 50 mcg 1-03 tablet by ity o f tablet 00:00: mouth [place] 00 every Medical morning. Branch levothyroxi 2021-09 Yes [id number] 50ug Take 1 [facility] ne 50 mcg 1-03 tablet by ity o f tablet 00:00: mouth [place] 00 every Medical morning. Branch levothyroxi 2021-09 Yes [id number] 50ug Take 1 [facility] ne 50 mcg 1-03 tablet by ity o f tablet 00:00: mouth [place] 00 every Medical morning. Branch levothyroxi 2021-09 Yes [id number] 50ug Take 1 [facility] ne 50 mcg 1-03 tablet by ity o f tablet 00:00: mouth [place] 00 every Medical morning. Branch levothyroxi 2021-09 Yes [id number] 50ug Take 1 [facility] ne 50 mcg 1-03 tablet by ity o f tablet 00:00: mouth [place] 00 every Medical morning. Branch levothyroxi 2021-09 Yes [id number] 50ug Take 1 [facility] ne 50 mcg 1-03 tablet by ity o f tablet 00:00: mouth [place] 00 every Medical morning. Branch levothyroxi 2021-09 Yes [id number] 50ug Take 1 [facility] ne 50 mcg 1-03 tablet by ity o f tablet 00:00: mouth [place] 00 every Medical morning. Branch levothyroxi 2021-09 Yes [id number] 50ug Take 1 [facility] ne 50 mcg [...] Medical Branch DOCUSATE 2021-09 Yes Take by [facility] s SODIUM 1- mouth. ity of (COLACE 08:06: [place] ORAL) 37 Medical Branch DOCUSATE 2021-09 Yes Take by [facility] s SODIUM 1- mouth. ity of (COLACE 08:06: [place] ORAL) 37 Medical Branch DOCUSATE 2021-09 Yes Take by [facility] s SODIUM 1- mouth. ity of (COLACE 08:06: [place] ORAL) 37 Medical Branch DOCUSATE 2021-09 Yes Take by [facility] s SODIUM 1- mouth. ity of (COLACE 08:06: [place] ORAL) 37 Medical Branch DOCUSATE 2021-09 Yes Take by [facility] s SODIUM 1- mouth. ity of (COLACE 08:06: [place] ORAL) 37 Medical Branch DOCUSATE 2021-09 Yes Take by [facility] s SODIUM 1- mouth. ity of (COLACE 08:06: [place] ORAL) 37 Medical Branch DOCUSATE 2021-09 Yes Take by [facility] s SODIUM - mouth. ity of (COLACE 08:06: [place] ORAL) 37 Medical Branch DOCUSATE 2021-09 Yes Take by [facility] s SODIUM 1- mouth. ity of (COLACE 08:06: [place] ORAL) 37 Medical Branch DOCUSATE 2021-09 Yes Take by [facility] s SODIUM - mouth. ity of (COLACE 08:06: [place] ORAL) 37 Medical Branch DOCUSATE 2021-09 Yes Take by [facility] s SODIUM - mouth. ity of (COLACE 08:06: [place] ORAL) Medical Branch diltiazem 2021-09 Yes [id number] 120mg Take 1 U nivers 120 mg 24 09-26 capsule by ity of hr capsule 00:00: mouth in [place] 00 the Medical morning Branch and 1 capsule in the evening. fluticasone 2021-09 Yes [id number] 2{puff} Inhale 2 [facility] propionate 1-01 Puffs ity of (FLOVENT 00:00: every 12 [place] HFA) 110 00 (twelve) Medical mcg/actuati hours. Branch on inhaler Rinse mouth after each use. levothyroxi 2021-09 Yes [id number] 50ug Take 1 [facility] ne 50 mcg 09-26 tablet by ity o f tablet 00:00: mouth [place] 00 every Medical morning. Branch metformin 2021-09 Yes [id number] 500mg Take 1 U nivers ER 500 mg 1-01 tablet by ity o f 24 hr 00:00: mouth [place] tablet 00 daily with Medical breakfast. Branch pantoprazol 2021-09 Yes [id number] 40mg Take 1 [facility] e 40 mg EC 1-01 tablet by ity of tablet 00:00: mouth in [place] 00 the Medical morning. Branch pregabalin 2021-09 Yes [id number] 150mg Take 1 [facility] 150 mg 1-01 capsule by ity of capsule 00:00: mouth in [place] 00 the Medical morning Branch and 1 capsule at noon and 1 capsule in the evening. rosuvastati 2021-09 Yes [id number] 10mg Take 1 [facility] n 10 mg 1-01 tablet by ity of tablet 00:00: mouth at [place] 00 bedtime. Medical Branch SUMAtriptan 2021-09 Yes [id number] 50mg Take 1 [facility] 50 mg 1-01 tablet by ity of tablet 00:00: mouth as [place] 00 needed for Medical Migraine. Branch diltiazem 2021-09 Yes [id number] 120mg Take 1 U nivers 120 mg 24 1- capsule by ity of hr capsule 00:00: mouth in [place] 00 the Medical morning Branch and 1 capsule in the evening. fluticasone 2021-09 Yes [id number] 2{puff} Inhale 2 [facility] propionate 1-01 Puffs ity of (FLOVENT 00:00: every 12 [place] HFA) 110 00 (twelve) Medical mcg/actuati hours. Branch on inhaler Rinse mouth after each use. levothyroxi 2021-09 Yes [id number] 50ug Take 1 [facility] ne 50 mcg 1-01 tablet by ity o f tablet 00:00: mouth [place] 00 every Medical morning. Branch metformin 2021-09 Yes [id number] 500mg Take 1 U nivers ER 500 mg 1-01 tablet by ity o f 24 hr 00:00: mouth [place] tablet 00 daily with Medical breakfast. Branch pantoprazol 2021-09 Yes [id number] 40mg Take 1 [facility] e 40 mg EC 1-01 tablet by ity of tablet 00:00: mouth in [place] 00 the Medical morning. Branch pregabalin 2021-09 Yes [id number] 150mg Take 1 [facility] 150 mg 1-01 capsule by ity of capsule 00:00: mouth in [place] 00 the Medical morning Branch and 1 capsule at noon and 1 capsule in the evening. rosuvastati 2021-09 Yes [id number] 10mg Take 1 [facility] n 10 mg 1-01 tablet by ity of tablet 00:00: mouth at [place] [address] bedtime. Medical Branch SUMAtriptan 2021-09 Yes [id number] 50mg Take 1 [facility] 50 mg 1-01 tablet by ity of tablet 00:00: mouth as [place] 00 needed for Medical Migraine. Branch diltiazem 2021-09 Yes [id number] 120mg Take 1 U nivers 120 mg 24 1-01 capsule by ity of hr capsule 00:00: mouth in [facility] as 00 the Medical morning Branch and 1 capsule in the evening. fluticasone 2021-09 Yes [id number] 2{puff} Inhale 2 [facility] propionate 1-01 Puffs ity of (FLOVENT 00:00: every 12 [place] HFA) 110 00 (twelve) Medical mcg/actuati hours. Branch on inhaler Rinse mouth after each use. metformin 2021-09 Yes [id number] 500mg Take 1 U nivers ER 500 mg 1-01 tablet by ity o f 24 hr 00:00: mouth [place] tablet 00 daily with Medical breakfast. Branch pantoprazol 2021-09 Yes [id number] 40mg Take 1 [facility] e 40 mg EC 1-01 tablet by ity of tablet 00:00: mouth in [place] 00 the Medical morning. Branch pregabalin 2021-09 Yes [id number] 150mg Take 1 [facility] 150 mg 1-01 capsule by ity of capsule 00:00: mouth in [place] 00 the Medical morning Branch and 1 capsule at noon and 1 capsule in the evening. rosuvastati 2021-09 Yes [id number] 10mg Take 1 [facility] n 10 mg 1-01 tablet by ity of tablet 00:00: mouth at [place] [address] bedtime. Medical Branch SUMAtriptan 2021-09 Yes [id number] 50mg Take 1 [facility] 50 mg 1-01 tablet by ity of tablet 00:00: mouth as [place] 00 needed for Medical Migraine. Branch diltiazem 2021-09 Yes [id number] 120mg Take 1 U nivers 120 mg 24 1-01 capsule by ity of hr capsule 00:00: mouth in [place] 00 the Medical morning Branch and 1 capsule in the evening. fluticasone 2021-09 Yes [id number] 2{puff} Inhale 2 [facility] propionate 1-01 Puffs ity of (FLOVENT 00:00: every 12 [place] HF) 110 00 (twelve) Medical mcg/actuati hours. Branch on inhaler Rinse mouth after each use. metformin 2021-09 Yes [id number] 500mg Take 1 U nivers ER 500 mg 1-01 tablet by ity o f 24 hr 00:00: mouth [place] tablet 00 daily with Medical breakfast. Branch pantoprazol 2021-09 Yes [id number] 40mg Take 1 [facility] e 40 mg EC 1-01 tablet by ity of tablet 00:00: mouth in [place] 00 the Medical morning. Branch pregabalin 2021-09 Yes [id number] 150mg Take 1 [facility] 150 mg 1-01 capsule by ity of capsule 00:00: mouth in [place] 00 the Medical morning Branch and 1 capsule at noon and 1 capsule in the evening. rosuvastati 2021-09 Yes [id number] 10mg Take 1 [facility] n 10 mg 1-01 tablet by ity of tablet 00:00: mouth at [place] 00 bedtime. Medical Branch SUMAtriptan 2021-09 Yes [id number] 50mg Take 1 [facility] 50 mg 1-01 tablet by ity of tablet 00:00: mouth as [place] 00 needed for Medical Migraine. Branch diltiazem 2021-09 Yes [id number] 120mg Take 1 U nivers 120 mg 24 1-01 capsule by ity of hr capsule 00:00: mouth in [facility] as 00 the Medical morning Branch and 1 capsule in the evening. fluticasone 2021-09 Yes [id number] 2{puff} Inhale 2 [facility] propionate 1-01 Puffs ity of (FLOVENT 00:00: every 12 [place] HFA) 110 00 (twelve) Medical mcg/actuati hours. Branch on inhaler Rinse mouth after each use. metformin 2021-09 Yes [id number] 500mg Take 1 U nivers ER 500 mg 1-01 tablet by ity o f 24 hr 00:00: mouth [place] tablet 00 daily with Medical breakfast. Branch pantoprazol 2021-09 Yes [id number] 40mg Take 1 [facility] e 40 mg EC 1-01 tablet by ity of tablet 00:00: mouth in [place] 00 the Medical morning. Branch pregabalin 2021-09 Yes [id number] 150mg Take 1 [facility] 150 mg 1-01 capsule by ity of capsule 00:00: mouth in [place] 00 the Medical morning Branch and 1 capsule at noon and 1 capsule in the evening. rosuvastati 2021-09 Yes [id number] 10mg Take 1 [facility] n 10 mg 1-01 tablet by ity of tablet 00:00: mouth at [place] 00 bedtime. Medical Branch SUMAtriptan 2021-09 Yes [id number] 50mg Take 1 [facility] 50 mg 1-01 tablet by ity of tablet 00:00: mouth as [place] 00 needed for Medical Migraine. Branch diltiazem 2021-09 Yes [id number] 120mg Take 1 U nivers 120 mg 24 1-01 capsule by ity of hr capsule 00:00: mouth in [place] 00 the Medical morning Branch and 1 capsule in the evening. fluticasone 2021-09 Yes [id number] 2{puff} Inhale 2 [facility] propionate 1-01 Puffs ity of (FLOVENT 00:00: every 12 [place] HFA) 110 00 (twelve) Medical mcg/actuati hours. Branch on inhaler Rinse mouth after each use. metformin 2021-09 Yes [id number] 500mg Take 1 U nivers ER 500 mg 1-01 tablet by ity o f 24 hr 00:00: mouth [place] tablet 00 daily with Medical breakfast. Branch pantoprazol 2021-09 Yes [id number] 40mg Take 1 [facility] e 40 mg EC 1-01 tablet by ity of tablet 00:00: mouth in [place] 00 the Medical morning. Branch pregabalin 2021-09 Yes [id number] 150mg Take 1 [facility] 150 mg 1-01 capsule by ity of capsule 00:00: mouth in [place] 00 the Medical morning Branch and 1 capsule at noon and 1 capsule in the evening. rosuvastati 2021-09 Yes [id number] 10mg Take 1 [facility] n 10 mg 1-01 tablet by ity of tablet 00:00: mouth at [place] [address] bedtime. Medical Branch SUMAtriptan 2021-09 Yes [id number] 50mg Take 1 [facility] 50 mg 1-01 tablet by ity of tablet 00:00: mouth as [place] 00 needed for Medical Migraine. Branch diltiazem 2021-09 Yes [id number] 120mg Take 1 U nivers 120 mg 24 1-01 capsule by ity of hr capsule 00:00: mouth in [place] 00 the Medical morning Branch and 1 capsule in the evening. fluticasone 2021-09 Yes [id number] 2{puff} Inhale 2 [facility] propionate 1-01 Puffs ity of (FLOVENT 00:00: every 12 [place] HFA) 110 00 (twelve) Medical mcg/actuati hours. Branch on inhaler Rinse mouth after each use. metformin 2021-09 Yes [id number] 500mg Take 1 U nivers ER 500 mg 1-01 tablet by ity o f 24 hr 00:00: mouth [place] tablet 00 daily with Medical breakfast. Branch pantoprazol 2021-09 Yes [id number] 40mg Take 1 [facility] e 40 mg EC 1-01 tablet by ity of tablet 00:00: mouth in [place] 00 the Medical morning. Branch pregabalin 2021-09 Yes [id number] 150mg Take 1 [facility] 150 mg 1-01 capsule by ity of capsule 00:00: mouth in [place] 00 the Medical morning Branch and 1 capsule at noon and 1 capsule in the evening. rosuvastati 2021-09 Yes [id number] 10mg Take 1 [facility] n 10 mg 1-01 tablet by it[facility] of tablet 00:00: mouth at [place] 00 bedtime. Medical Branch SUMAtriptan 2021-09 Yes [id number] 50mg Take 1 [facility] 50 mg 1-01 tablet by ity of tablet 00:00: mouth as [place] 00 needed for Medical Migraine. Branch diltiazem 2021-09 Yes [id number] 120mg Take 1 [facility] nivers 120 mg 24 1-01 capsule by ity of hr capsule 00:00: mouth in [facility] as 00 the Medical morning Branch and 1 capsule in the evening. fluticasone 2021-09 Yes [id number] 2{puff} Inhale 2 [facility] propionate 1-01 Puffs ity of (FLOVENT 00:00: every 12 [place] [facility]FA) 110 00 (twelve) Medical mcg/actuati hours. Branch on inhaler Rinse mouth after each use. metformin 2021-09 Yes [id number] 500mg Take 1 U nivers ER 500 mg 1-01 tablet by ity o f 24 hr 00:00: mouth [place] tablet 00 daily with Medical breakfast. Branch pantoprazol 2021-09 Yes [id number] 40mg Take 1 [facility] e 40 mg EC 1-01 tablet by ity of tablet 00:00: mouth in [place] 00 the Medical morning. Branch pregabalin 2021-09 Yes [id number] 150mg Take 1 [facility] 150 mg 1-01 capsule by ity of capsule 00:00: mouth in [place] 00 the Medical morning Branch and 1 capsule at noon and 1 capsule in the evening. rosuvastati 2021-09 Yes [id number] 10mg Take 1 [facility] n 10 mg 1-01 tablet by ity of tablet 00:00: mouth at [place] 00 bedtime. Medical Branch SUMAtriptan 2021-09 Yes [id number] 50mg Take 1 [facility] 50 mg 1-01 tablet by ity of tablet 00:00: mouth as [place] 00 needed for Medical Migraine. Branch diltiazem 2021-09 Yes [id number] 120mg Take 1 [facility] nivers 120 mg 24 1-01 capsule by ity of hr capsule 00:00: mouth in [facility] as 00 the Medical morning Branch and 1 capsule in the evening. fluticasone 2021-09 Yes [id number] 2{puff} Inhale 2 [facility] propionate 1-01 Puffs ity of (FLOVENT 00:00: every 12 [place] HFA) 110 00 (twelve) Medical mcg/actuati hours. Branch on inhaler Rinse mouth after each use. metformin 2021-09 Yes [id number] 500mg Take 1 U nivers ER 500 mg 1-01 tablet by ity o f 24 hr 00:00: mouth [place] tablet 00 daily with Medical breakfast. Branch pantoprazol 2021-09 Yes [id number] 40mg Take 1 [facility] e 40 mg EC 1-01 tablet by ity of tablet 00:00: mouth in [place] 00 the Medical morning. Branch pregabalin 2021-09 Yes [id number] 150mg Take 1 [facility] 150 mg 1-01 capsule by ity of capsule 00:00: mouth in [place] 00 the Medical morning Branch and 1 capsule at noon and 1 capsule in the evening. rosuvastati 2021-09 Yes [id number] 10mg Take 1 [facility] n 10 mg 1-01 tablet by ity of tablet 00:00: mouth at [place] [address] bedtime. Medical Branch SUMAtriptan 2021-09 Yes [id number] 50mg Take 1 [facility] 50 mg 1-01 tablet by ity of tablet 00:00: mouth as [place] 00 needed for Medical Migraine. Branch diltiazem 2021-09 Yes [id number] 120mg Take 1 [facility] nivers 120 mg 24 1-01 capsule by ity of hr capsule 00:00: mouth in [place] as 00 the Medical morning Branch and 1 capsule in the evening. fluticasone 2021-09 Yes [id number] 2{puff} Inhale 2 [facility] propionate 1-01 Puffs ity of (FLOVENT 00:00: every 12 [place] HFA) 110 00 (twelve) Medical mcg/actuati hours. Branch on inhaler Rinse mouth after each use. metformin 2021-09 Yes [id number] 500mg Take 1 [facility] nivers ER 500 mg 1-01 tablet by ity o f 24 hr 00:00: mouth [place] tablet 00 daily with Medical breakfast. Branch pantoprazol 2021-09 Yes [id number] 40mg Take 1 [facility] e 40 mg EC 1-01 tablet by ity of tablet 00:00: mouth in [place] 00 the Medical morning. Branch pregabalin 2021-09 Yes [id number] 150mg Take 1 [facility] 150 mg 1-01 capsule by ity of capsule 00:00: mouth in [place] 00 the Medical morning Branch and 1 capsule at noon and 1 capsule in the evening. rosuvastati 2021-09 Yes [id number] 10mg Take 1 [facility] n 10 mg 1-01 tablet by ity of tablet 00:00: mouth at [place] 00 bedtime. Medical Branch SUMAtriptan 2021-09 Yes [id number] 50mg Take 1 [facility] 50 mg 1-01 tablet by ity of tablet 00:00: mouth as [place] 00 needed for Medical Migraine. Branch diltiazem 2021-09 Yes [id number] 120mg Take 1 [facility] nivers 120 mg 24 1-01 capsule by ity of hr capsule 00:00: mouth in [place] as 00 the Medical morning Branch and 1 capsule in the evening. fluticasone 2021-09 Yes [id number] 2{puff} Inhale 2 [facility] propionate 1-01 Puffs ity of (FLOVENT 00:00: every 12 [place] HFA) 110 00 (twelve) Medical mcg/actuati hours. Branch on inhaler Rinse mouth after each use. metformin 2021-09 Yes [id number] 500mg Take 1 U nivers ER 500 mg 1-01 tablet by ity o f 24 hr 00:00: mouth [place] tablet 00 daily with Medical breakfast. Branch pantoprazol 2021-09 Yes [id number] 40mg Take 1 [facility] e 40 mg EC 1-01 tablet by ity of tablet 00:00: mouth in [place] 00 the Medical morning. Branch pregabalin 2021-09 Yes [id number] 150mg Take 1 [facility] 150 mg 1-01 capsule by ity of capsule 00:00: mouth in [place] 00 the Medical morning Branch and 1 capsule at noon and 1 capsule in the evening. rosuvastati 2021-09 Yes [id number] 10mg Take 1 [facility] n 10 mg 1-01 tablet by ity of tablet 00:00: mouth at [place] 00 bedtime. Medical Branch SUMAtriptan 2021-09 Yes [id number] 50mg Take 1 [facility] 50 mg 1-01 tablet by ity of tablet 00:00: mouth as [place] 00 needed for Medical Migraine. Branch diltiazem 2021-09 Yes [id number] 120mg Take 1 [facility] nivers 120 mg 24 1-01 capsule by ity of hr capsule 00:00: mouth in [facility] as 00 the Medical morning Branch and 1 capsule in the evening. fluticasone 2021-09 Yes [id number] 2{puff} Inhale 2 [facility] propionate 1-01 Puffs ity of (FLOVENT 00:00: every 12 [place] HFA) 110 00 (twelve) Medical mcg/actuati hours. Branch on inhaler Rinse mouth after each use. metformin 2021-09 Yes [id number] 500mg Take 1 U nivers ER 500 mg 1-01 tablet by ity o f 24 hr 00:00: mouth [place] tablet 00 daily with Medical breakfast. Branch pantoprazol 2021-09 Yes [id number] 40mg Take 1 [facility] e 40 mg EC 1-01 tablet by ity of tablet 00:00: mouth in [place] 00 the Medical morning. Branch pregabalin 2021-09 Yes [id number] 150mg Take 1 [facility] 150 mg 1-01 capsule by ity of capsule 00:00: mouth in [place] 00 the Medical morning Branch and 1 capsule at noon and 1 capsule in the evening. rosuvastati 2021-09 Yes [id number] 10mg Take 1 [facility] n 10 mg 1-01 tablet by ity of tablet 00:00: mouth at [place] 00 bedtime. Medical Branch SUMAtriptan 2021-09 Yes [id number] 50mg Take 1 [facility] 50 mg 1-01 tablet by ity of tablet 00:00: mouth as [place] 00 needed for Medical Migraine. Branch diltiazem 2021-09 Yes [id number] 120mg Take 1 [facility] nivers 120 mg 24 1-01 capsule by ity of hr capsule 00:00: mouth in [place] as 00 the Medical morning Branch and 1 capsule in the evening. fluticasone 2021-09 Yes [id number] 2{puff} Inhale 2 [facility] propionate 1-01 Puffs ity of (FLOVENT 00:00: every 12 [place] [facility]) 110 00 (twelve) Medical mcg/actuati hours. Branch on inhaler Rinse mouth after each use. metformin 2021-09 Yes [id number] 500mg Take 1 U nivers ER 500 mg 1-01 tablet by ity o f 24 hr 00:00: mouth [place] tablet 00 daily with Medical breakfast. Branch pantoprazol 2021-09 Yes [id number] 40mg Take 1 [facility] e 40 mg EC 1-01 tablet by ity of tablet 00:00: mouth in [place] 00 the Medical morning. Branch pregabalin 2021-09 Yes [id number] 150mg Take 1 [facility] 150 mg 1-01 capsule by ity of capsule 00:00: mouth in [place] 00 the Medical morning Branch and 1 capsule at noon and 1 capsule in the evening. rosuvastati 2021-09 Yes [id number] 10mg Take 1 [facility] n 10 mg 1-01 tablet by ity of tablet 00:00: mouth at [place] 00 bedtime. Medical Branch SUMAtriptan 2021-09 Yes [id number] 50mg Take 1 [facility] 50 mg 1-01 tablet by ity of tablet 00:00: mouth as [place] 00 needed for Medical Migraine. Branch diltiazem 2021-09 Yes [id number] 120mg Take 1 [facility] nivers 120 mg 24 1-01 capsule by ity of hr capsule 00:00: mouth in [place] as 00 the Medical morning Branch and 1 capsule in the evening. fluticasone 2021-09 Yes [id number] 2{puff} Inhale 2 [facility] propionate 1-01 Puffs ity of (FLOVENT 00:00: every 12 [place] HFA) 110 00 (twelve) Medical mcg/actuati hours. Branch on inhaler Rinse mouth after each use. metformin 2021-09 Yes [id number] 500mg Take 1 U nivers ER 500 mg 1-01 tablet by ity o f 24 hr 00:00: mouth [place] tablet 00 daily with Medical breakfast. Branch pantoprazol 2021-09 Yes [id number] 40mg Take 1 [facility] e 40 mg EC 1-01 tablet by ity of tablet 00:00: mouth in [place] 00 the Medical morning. Branch rosuvastati 2021-09 Yes [id number] 10mg Take 1 [facility] n 10 mg 1-01 tablet by ity of tablet 00:00: mouth at [place] 00 bedtime. Medical Branch SUMAtriptan 2021-09 Yes [id number] 50mg Take 1 [facility] 50 mg 1-01 tablet by ity of tablet 00:00: mouth as [place] 00 needed for Medical Migraine. Branch diltiazem 2021-09 Yes [id number] 120mg Take 1 [facility] nivers 120 mg 24 1-01 capsule by ity of hr capsule 00:00: mouth in [place] as 00 the Medical morning Branch and 1 capsule in the evening. fluticasone 2021-09 Yes [id number] 2{puff} Inhale 2 [facility] propionate 1-01 Puffs ity of (FLOVENT 00:00: every 12 [facility]) 110 00 (twelve) Medical mcg/actuati hours. Branch on inhaler Rinse mouth after each use. metformin 2021-09 Yes [id number] 500mg Take 1 U nivers ER 500 mg 1-01 tablet by ity o f 24 hr 00:00: mouth [place] tablet 00 daily with Medical breakfast. Branch pantoprazol 2021-09 Yes [id number] 40mg Take 1 [facility] e 40 mg EC 1-01 tablet by ity of tablet 00:00: mouth in [place] 00 the Medical morning. Branch rosuvastati 2021-09 Yes [id number] 10mg Take 1 [facility] n 10 mg 1-01 tablet by ity of tablet 00:00: mouth at [place] [address] bedtime. Medical Branch SUMAtriptan 2021-09 Yes [id number] 50mg Take 1 [facility] 50 mg 1-01 tablet by ity of tablet 00:00: mouth as [place] 00 needed for Medical Migraine. Branch diltiazem 2021-09 Yes [id number] 120mg Take 1 U nivers 120 mg 24 1-01 capsule by ity of hr capsule 00:00: mouth in [place] as 00 the Medical morning Branch and 1 capsule in the evening. fluticasone 2021-09 Yes [id number] 2{puff} Inhale 2 [facility] propionate 1-01 Puffs ity of (FLOVENT 00:00: every 12 [place] [facility]FA) 110 00 (twelve) Medical mcg/actuati hours. Branch on inhaler Rinse mouth after each use. metformin 2021-09 Yes [id number] 500mg Take 1 U nivers ER 500 mg 1-01 tablet by ity o f 24 hr 00:00: mouth [place] tablet 00 daily with Medical breakfast. Branch pantoprazol 2021-09 Yes [id number] 40mg Take 1 [facility] e 40 mg EC 1-01 tablet by ity of tablet 00:00: mouth in [place] 00 the Medical morning. Branch rosuvastati 2021-09 Yes [id number] 10mg Take 1 [facility] n 10 mg 1-01 tablet by ity of tablet 00:00: mouth at [place] 00 bedtime. Medical Branch SUMAtriptan 2021-09 Yes [id number] 50mg Take 1 [facility] 50 mg 1-01 tablet by ity of tablet 00:00: mouth as [place] 00 needed for Medical Migraine. Branch diltiazem 2021-09 Yes [id number] 120mg Take 1 U nivers 120 mg 24 1-01 capsule by ity of hr capsule 00:00: mouth in [place] as 00 the Medical morning Branch and 1 capsule in the evening. fluticasone 2021-09 Yes [id number] 2{puff} Inhale 2 [facility] propionate 1-01 Puffs ity of (FLOVENT 00:00: every 12 [place] HFA) 110 00 (twelve) Medical mcg/actuati hours. Branch on inhaler Rinse mouth after each use. metformin 2021-09 Yes [id number] 500mg Take 1 U nivers ER 500 mg 1-01 tablet by ity o f 24 hr 00:00: mouth [place] tablet 00 daily with Medical breakfast. Branch pantoprazol 2021-09 Yes [id number] 40mg Take 1 [facility] e 40 mg EC 1-01 tablet by ity of tablet 00:00: mouth in [place] 00 the Medical morning. Branch rosuvastati 2021-09 Yes [id number] 10mg Take 1 [facility] n 10 mg 1-01 tablet by ity of tablet 00:00: mouth at [place] 00 bedtime. Medical Branch SUMAtriptan 2021-09 Yes [id number] 50mg Take 1 [facility] 50 mg 1-01 tablet by ity of tablet 00:00: mouth as [place] 00 needed for Medical Migraine. Branch diltiazem 2021-09 Yes [id number] 120mg Take 1 U nivers 120 mg 24 1-01 capsule by ity of hr capsule 00:00: mouth in [place] as 00 the Medical morning Branch and 1 capsule in the evening. fluticasone 2021-09 Yes [id number] 2{puff} Inhale 2 [facility] propionate 1-01 Puffs ity of (FLOVENT 00:00: every 12 [place] HFA) 110 00 (twelve) Medical mcg/actuati hours. Branch on inhaler Rinse mouth after each use. metformin 2021-09 Yes [id number] 500mg Take 1 U nivers ER 500 mg 1-01 tablet by ity o f 24 hr 00:00: mouth [place] tablet 00 daily with Medical breakfast. Branch pantoprazol 2021-09 Yes [id number] 40mg Take 1 [facility] e 40 mg EC 1-01 tablet by ity of tablet 00:00: mouth in [place] 00 the Medical morning. Branch rosuvastati 2021-09 Yes [id number] 10mg Take 1 [facility] n 10 mg 1-01 tablet by ity of tablet 00:00: mouth at [place] 00 bedtime. Medical Branch SUMAtriptan 2021-09 Yes [id number] 50mg Take 1 [facility] 50 mg 1-01 tablet by ity of tablet 00:00: mouth as [place] 00 needed for Medical Migraine. Branch diltiazem 2021-09 Yes [id number] 120mg Take 1 U nivers 120 mg 24 1-01 capsule by ity of hr capsule 00:00: mouth in [place] as 00 the Medical morning Branch and 1 capsule in the evening. fluticasone 2021-09 Yes [id number] 2{puff} Inhale 2 [facility] propionate 1-01 Puffs ity of (FLOVENT 00:00: every 12 [place] HFA) 110 00 (twelve) Medical mcg/actuati hours. Branch on inhaler Rinse mouth after each use. metformin 2021-09 Yes [id number] 500mg Take 1 U nivers ER 500 mg 1-01 tablet by ity o f 24 hr 00:00: mouth [place] tablet 00 daily with Medical breakfast. Branch pantoprazol 2021-09 Yes [id number] 40mg Take 1 [facility] e 40 mg EC 1-01 tablet by ity of tablet 00:00: mouth in [place] 00 the Medical morning. Branch rosuvastati 2021-09 Yes [id number] 10mg Take 1 [facility] n 10 mg 1-01 tablet by ity of tablet 00:00: mouth at [place] 00 bedtime. Medical Branch SUMAtriptan 2021-09 Yes [id number] 50mg Take 1 [facility] 50 mg 1-01 tablet by ity of tablet 00:00: mouth as [place] 00 needed for Medical Migraine. Branch diltiazem 2021-09 Yes [id number] 120mg Take 1 U nivers 120 mg 24 1-01 capsule by ity of hr capsule 00:00: mouth in [place] as 00 the Medical morning Branch and 1 capsule in the evening. fluticasone 2021-09 Yes [id number] 2{puff} Inhale 2 [facility] propionate 1-01 Puffs ity of (FLOVENT 00:00: every 12 [place] HFA) 110 00 (twelve) Medical mcg/actuati hours. Branch on inhaler Rinse mouth after each use. metformin 2021-09 Yes [id number] 500mg Take 1 U nivers ER 500 mg 1-01 tablet by ity o f 24 hr 00:00: mouth [place] tablet 00 daily with Medical breakfast. Branch pantoprazol 2021-09 Yes [id number] 40mg Take 1 [facility] e 40 mg EC 1-01 tablet by ity of tablet 00:00: mouth in [place] 00 the Medical morning. Branch rosuvastati 2021-09 Yes [id number] 10mg Take 1 [facility] n 10 mg 1-01 tablet by ity of tablet 00:00: mouth at [place] 00 bedtime. Medical Branch SUMAtriptan 2021-09 Yes [id number] 50mg Take 1 [facility] 50 mg 1-01 tablet by ity of tablet 00:00: mouth as [place] 00 needed for Medical Migraine. Branch diltiazem 2021-09 Yes [id number] 120mg Take 1 U nivers 120 mg 24 1-01 capsule by ity of hr capsule 00:00: mouth in [place] as 00 the Medical morning Branch and 1 capsule in the evening. fluticasone 2021-09 Yes [id number] 2{puff} Inhale 2 [facility] propionate 1-01 Puffs ity of (FLOVENT 00:00: every 12 [place] HFA) 110 00 (twelve) Medical mcg/actuati hours. Branch on inhaler Rinse mouth after each use. metformin 2021-09 Yes [id number] 500mg Take 1 U nivers ER 500 mg 1-01 tablet by ity o f 24 hr 00:00: mouth [place] tablet 00 daily with Medical breakfast. Branch pantoprazol 2021-09 Yes [id number] 40mg Take 1 [facility] e 40 mg EC 1-01 tablet by ity of tablet 00:00: mouth in [place] 00 the Medical morning. Branch rosuvastati 2021-09 Yes [id number] 10mg Take 1 [facility] n 10 mg 1-01 tablet by ity of tablet 00:00: mouth at [place] 00 bedtime. Medical Branch SUMAtriptan 2021-09 Yes [id number] 50mg Take 1 [facility] 50 mg 1-01 tablet by ity of tablet 00:00: mouth as [place] 00 needed for Medical Migraine. Branch diltiazem 2021-09 Yes [id number] 120mg Take 1 U nivers 120 mg 24 1-01 capsule by ity of hr capsule 00:00: mouth in [place] as 00 the Medical morning Branch and 1 capsule in the evening. fluticasone 2021-09 Yes [id number] 2{puff} Inhale 2 [facility] propionate 1-01 Puffs ity of (FLOVENT 00:00: every 12 [place] HFA) 110 00 (twelve) Medical mcg/actuati hours. Branch on inhaler Rinse mouth after each use. metformin 2021-09 Yes [id number] 500mg Take 1 U nivers ER 500 mg 1-01 tablet by ity o f 24 hr 00:00: mouth [place] tablet 00 daily with Medical breakfast. Branch pantoprazol 2021-09 Yes [id number] 40mg Take 1 [facility] e 40 mg EC 1-01 tablet by ity of tablet 00:00: mouth in [place] 00 the Medical morning. Branch rosuvastati 2021-09 Yes [id number] 10mg Take 1 [facility] n 10 mg 1-01 tablet by ity of tablet 00:00: mouth at [place] 00 bedtime. Medical Branch SUMAtriptan 2021-09 Yes [id number] 50mg Take 1 [facility] 50 mg 1-01 tablet by ity of tablet 00:00: mouth as [place] 00 needed for Medical Migraine. Branch diltiazem 2021-09 Yes [id number] 120mg Take 1 U nivers 120 mg 24 1-01 capsule by ity of hr capsule 00:00: mouth in [place] as 00 the Medical morning Branch and 1 capsule in the evening. fluticasone 2021-09 Yes [id number] 2{puff} Inhale 2 [facility] propionate 1-01 Puffs ity of (FLOVENT 00:00: every 12 [place] HFA) 110 00 (twelve) Medical mcg/actuati hours. Branch on inhaler Rinse mouth after each use. metformin 2021-09 Yes [id number] 500mg Take 1 U nivers ER 500 mg 1-01 tablet by ity o f 24 hr 00:00: mouth [place] tablet 00 daily with Medical breakfast. Branch pantoprazol 2021-09 Yes [id number] 40mg Take 1 [facility] e 40 mg EC 1-01 tablet by ity of tablet 00:00: mouth in [place] 00 the Medical morning. Branch rosuvastati 2021-09 Yes [id number] 10mg Take 1 [facility] n 10 mg 1-01 tablet by ity of tablet 00:00: mouth at [place] 00 bedtime. Medical Branch SUMAtriptan 2021-09 Yes [id number] 50mg Take 1 [facility] 50 mg 1-01 tablet by ity of tablet 00:00: mouth as [place] 00 needed for Medical Migraine. Branch diltiazem 2021-09 Yes [id number] 120mg Take 1 U nivers 120 mg 24 1-01 capsule by ity of hr capsule 00:00: mouth in [place] as 00 the Medical morning Branch and 1 capsule in the evening. fluticasone 2021-09 Yes [id number] 2{puff} Inhale 2 [facility] propionate 1-01 Puffs ity of (FLOVENT 00:00: every 12 [place] HFA) 110 00 (twelve) Medical mcg/actuati hours. Branch on inhaler Rinse mouth after each use. metformin 2021-09 Yes [id number] 500mg Take 1 U nivers ER 500 mg 1-01 tablet by ity o f 24 hr 00:00: mouth [place] tablet 00 daily with Medical breakfast. Branch pantoprazol 2021-09 Yes [id number] 40mg Take 1 [facility] e 40 mg EC 1-01 tablet by ity of tablet 00:00: mouth in [place] 00 the Medical morning. Branch rosuvastati 2021-09 Yes [id number] 10mg Take 1 [facility] n 10 mg 1-01 tablet by ity of tablet 00:00: mouth at [place] 00 bedtime. Medical Branch SUMAtriptan 2021-09 Yes [id number] 50mg Take 1 [facility] 50 mg 1-01 tablet by ity of tablet 00:00: mouth as [place] 00 needed for Medical Migraine. Branch diltiazem 2021-09 Yes [id number] 120mg Take 1 U nivers 120 mg 24 1-01 capsule by ity of hr capsule 00:00: mouth in [place] as 00 the Medical morning Branch and 1 capsule in the evening. fluticasone 2021-09 Yes [id number] 2{puff} Inhale 2 [facility] propionate 1-01 Puffs ity of (FLOVENT 00:00: every 12 [place] HFA) 110 00 (twelve) Medical mcg/actuati hours. Branch on inhaler Rinse mouth after each use. metformin 2021-09 Yes [id number] 500mg Take 1 U nivers ER 500 mg 1-01 tablet by ity o f 24 hr 00:00: mouth [place] tablet 00 daily with Medical breakfast. Branch pantoprazol 2021-09 Yes [id number] 40mg Take 1 [facility] e 40 mg EC 1-01 tablet by ity of tablet 00:00: mouth in [place] 00 the Medical morning. Branch rosuvastati 2021-09 Yes [id number] 10mg Take 1 [facility] n 10 mg 1-01 tablet by ity of tablet 00:00: mouth at [place] [address] bedtime. Medical Branch SUMAtriptan 2021-09 Yes [id number] 50mg Take 1 [facility] 50 mg 1-01 tablet by ity of tablet 00:00: mouth as [place] 00 needed for Medical Migraine. Branch diltiazem 2021-09 Yes [id number] 120mg Take 1 U nivers 120 mg 24 1-01 capsule by ity of hr capsule 00:00: mouth in [place] as 00 the Medical morning Branch and 1 capsule in the evening. fluticasone 2021-09 Yes [id number] 2{puff} Inhale 2 [facility] propionate 1-01 Puffs ity of (FLOVENT 00:00: every 12 [place] HFA) 110 00 (twelve) Medical mcg/actuati hours. Branch on inhaler Rinse mouth after each use. metformin 2021-09 Yes [id number] 500mg Take 1 U nivers ER 500 mg 1-01 tablet by ity o f 24 hr 00:00: mouth [place] tablet 00 daily with Medical breakfast. Branch pantoprazol 2021-09 Yes [id number] 40mg Take 1 [facility] e 40 mg EC 1-01 tablet by ity of tablet 00:00: mouth in [place] 00 the Medical morning. Branch rosuvastati 2021-09 Yes [id number] 10mg Take 1 [facility] n 10 mg 1-01 tablet by ity of tablet 00:00: mouth at [place] 00 bedtime. Medical Branch SUMAtriptan 2021-09 Yes [id number] 50mg Take 1 [facility] 50 mg 1-01 tablet by ity of tablet 00:00: mouth as [place] 00 needed for Medical Migraine. Branch diltiazem 2021-09 Yes [id number] 120mg Take 1 U nivers 120 mg 24 1-01 capsule by ity of hr capsule 00:00: mouth in [place] as 00 the Medical morning Branch and 1 capsule in the evening. fluticasone 2021-09 Yes [id number] 2{puff} Inhale 2 [facility] propionate 1-01 Puffs ity of (FLOVENT 00:00: every 12 [place] HFA) 110 00 (twelve) Medical mcg/actuati hours. Branch on inhaler Rinse mouth after each use. rosuvastati 2021-09 Yes [id number] 10mg Take 1 [facility] n 10 mg 1-01 tablet by ity of tablet 00:00: mouth at [place] 00 bedtime. Medical Branch diltiazem 2021-09 Yes [id number] 120mg Take 1 U nivers 120 mg 24 1-01 capsule by ity of hr capsule 00:00: mouth in [place] as 00 the Medical morning Branch and 1 capsule in the evening. fluticasone 2021-09 Yes [id number] 2{puff} Inhale 2 [facility] propionate 1-01 Puffs ity of (FLOVENT 00:00: every 12 [place] [facility]FA) 110 00 (twelve) Medical mcg/actuati hours. Branch on inhaler Rinse mouth after each use. rosuvastati 2021-09 Yes [id number] 10mg Take 1 [facility] n 10 mg 1-01 tablet by ity of tablet 00:00: mouth at [place] 00 bedtime. Medical Branch diltiazem 2021-09 Yes [id number] 120mg Take 1 U nivers 120 mg 24 1-01 capsule by ity of hr capsule 00:00: mouth in [place] as 00 the Medical morning Branch and 1 capsule in the evening. fluticasone 2021-09 Yes [id number] 2{puff} Inhale 2 [facility] propionate 1-01 Puffs ity of (FLOVENT 00:00: every 12 [place] HFA) 110 00 (twelve) Medical mcg/actuati hours. Branch on inhaler Rinse mouth after each use. rosuvastati 2021-09 Yes [id number] 10mg Take 1 [facility] n 10 mg 1-01 tablet by ity of tablet 00:00: mouth at [place] 00 bedtime. Medical Branch diltiazem 2021-09 Yes [id number] 120mg Take 1 U nivers 120 mg 24 1-01 capsule by ity of hr capsule 00:00: mouth in [place] as 00 the Medical morning Branch and 1 capsule in the evening. fluticasone 2021-09 Yes [id number] 2{puff} Inhale 2 [facility] propionate 1-01 Puffs ity of (FLOVENT 00:00: every 12 [place] HFA) 110 00 (twelve) Medical mcg/actuati hours. Branch on inhaler Rinse mouth after each use. rosuvastati 2021-09 Yes [id number] 10mg Take 1 [facility] n 10 mg 1-01 tablet by ity of tablet 00:00: mouth at [place] 00 bedtime. Medical Branch diltiazem 2021-09 Yes [id number] 120mg Take 1 U nivers 120 mg 24 1-01 capsule by ity of hr capsule 00:00: mouth in [place] as 00 the Medical morning Branch and 1 capsule in the evening. fluticasone 2021-09 Yes [id number] 2{puff} Inhale 2 [facility] propionate 1-01 Puffs ity of (FLOVENT 00:00: every 12 [place] HFA) 110 00 (twelve) Medical mcg/actuati hours. Branch on inhaler Rinse mouth after each use. rosuvastati 2021-09 Yes [id number] 10mg Take 1 [facility] n 10 mg 1-01 tablet by ity of tablet 00:00: mouth at [place] 00 bedtime. Medical Branch diltiazem 2021-09 Yes [id number] 120mg Take 1 [facility] nivers 120 mg 24 1-01 capsule by ity of hr capsule 00:00: mouth in [place] as 00 the Medical morning Branch and 1 capsule in the evening. fluticasone 2021-09 Yes [id number] 2{puff} Inhale 2 [facility] propionate 1-01 Puffs ity of (FLOVENT 00:00: every 12 [place] HFA) 110 00 (twelve) Medical mcg/actuati hours. Branch on inhaler Rinse mouth after each use. rosuvastati 2021-09 Yes [id number] 10mg Take 1 [facility] n 10 mg 1-01 tablet by ity of tablet 00:00: mouth at [place] 00 bedtime. Medical Branch diltiazem 2021-09 Yes [id number] 120mg Take 1 U nivers 120 mg 24 1-01 capsule by ity of hr capsule 00:00: mouth in [place] 00 the Medical morning Branch and 1 capsule in the evening. fluticasone 2021-09 Yes [id number] 2{puff} Inhale 2 [facility] propionate 1-01 Puffs ity of (FLOVENT 00:00: every 12 [place] HFA) 110 00 (twelve) Medical mcg/actuati hours. Branch on inhaler Rinse mouth after each use. rosuvastati 2021-09 Yes [id number] 10mg Take 1 [facility] n 10 mg 1-01 tablet by ity of tablet 00:00: mouth at [place] 00 bedtime. Medical Branch diltiazem 2021-09 Yes [id number] 120mg Take 1 U nivers 120 mg 24 1-01 capsule by ity of hr capsule 00:00: mouth in [place] 00 the Medical morning Branch and 1 capsule in the evening. fluticasone 2021-09 Yes [id number] 2{puff} Inhale 2 [facility] propionate 1-01 Puffs ity of (FLOVENT 00:00: every 12 [place] HFA) 110 00 (twelve) Medical mcg/actuati hours. Branch on inhaler Rinse mouth after each use. rosuvastati 2021-09 Yes [id number] 10mg Take 1 [facility] n 10 mg 1-01 tablet by ity of tablet 00:00: mouth at [place] 00 bedtime. Medical Branch diltiazem 2021-09 Yes [id number] 120mg Take 1 [facility] nivers 120 mg 24 1-01 capsule by ity of hr capsule 00:00: mouth in [place] 00 the Medical morning Branch and 1 capsule in the evening. fluticasone 2021-09 Yes [id number] 2{puff} Inhale 2 [facility] propionate 1-01 Puffs ity of (FLOVENT 00:00: every 12 [place] HFA) 110 00 (twelve) Medical mcg/actuati hours. Branch on inhaler Rinse mouth after each use. rosuvastati 2021-09 Yes [id number] 10mg Take 1 [facility] n 10 mg 1-01 tablet by ity of tablet 00:00: mouth at [place] 00 bedtime. Medical Branch diltiazem 2021-09 Yes [id number] 120mg Take 1 [facility] nivers 120 mg 24 1-01 capsule by ity of hr capsule 00:00: mouth in [place] 00 the Medical morning Branch and 1 capsule in the evening. fluticasone 2021-09 Yes [id number] 2{puff} Inhale 2 [facility] propionate 1-01 Puffs ity of (FLOVENT 00:00: every 12 [place] HFA) 110 00 (twelve) Medical mcg/actuati hours. Branch on inhaler Rinse mouth after each use. rosuvastati 2021-09 Yes [id number] 10mg Take 1 [facility] n 10 mg 1-01 tablet by ity of tablet 00:00: mouth at [place] 00 bedtime. Medical Branch diltiazem 2021-09 Yes [id number] 120mg Take 1 [facility] nivers 120 mg 24 1-01 capsule by ity of hr capsule 00:00: mouth in [place] 00 the Medical morning Branch and 1 capsule in the evening. fluticasone 2021-09 Yes [id number] 2{puff} Inhale 2 [facility] propionate 1-01 Puffs ity of (FLOVENT 00:00: every 12 [place] HFA) 110 00 (twelve) Medical mcg/actuati hours. Branch on inhaler Rinse mouth after each use. rosuvastati 2021-09 Yes [id number] 10mg Take 1 [facility] n 10 mg 1-01 tablet by ity of tablet 00:00: mouth at [place] 00 bedtime. Medical Branch diltiazem 2021-09 Yes [id number] 120mg Take 1 [facility] nivers 120 mg 24 1-01 capsule by ity of hr capsule 00:00: mouth in [place] 00 the Medical morning Branch and 1 capsule in the evening. fluticasone 2021-09 Yes [id number] 2{puff} Inhale 2 [facility] propionate 1-01 Puffs ity of (FLOVENT 00:00: every 12 [place] HFA) 110 00 (twelve) Medical mcg/actuati hours. Branch on inhaler Rinse mouth after each use. rosuvastati 2021-09 Yes [id number] 10mg Take 1 [facility] n 10 mg 1-01 tablet by ity of tablet 00:00: mouth at [place] 00 bedtime. Medical Branch diltiazem 2021-09 Yes [id number] 120mg Take 1 [facility] nivers 120 mg 24 1-01 capsule by ity of hr capsule 00:00: mouth in [place] 00 the Medical morning Branch and 1 capsule in the evening. fluticasone 2021-09 Yes [id number] 2{puff} Inhale 2 [facility] propionate 1-01 Puffs ity of (FLOVENT 00:00: every 12 [place] HFA) 110 00 (twelve) Medical mcg/actuati hours. Branch on inhaler Rinse mouth after each use. rosuvastati 2021-09 Yes [id number] 10mg Take 1 [facility] n 10 mg 1-01 tablet by ity of tablet 00:00: mouth at [place] 00 bedtime. Medical Branch diltiazem 2021-09 Yes [id number] 120mg Take 1 [facility] nivers 120 mg 24 1-01 capsule by ity of hr capsule 00:00: mouth in [place] 00 the Medical morning Branch and 1 capsule in the evening. fluticasone 2021-09 Yes [id number] 2{puff} Inhale 2 [facility] propionate 1-01 Puffs ity of (FLOVENT 00:00: every 12 [place] HFA) 110 00 (twelve) Medical mcg/actuati hours. Branch on inhaler Rinse mouth after each use. rosuvastati 2021-09 Yes [id number] 10mg Take 1 [facility] n 10 mg 1-01 tablet by ity of tablet 00:00: mouth at [place] 00 bedtime. Medical Branch diltiazem 2021-09 Yes [id number] 120mg Take 1 [facility] nivers 120 mg 24 1-01 capsule by ity of hr capsule 00:00: mouth in [place] 00 the Medical morning Branch and 1 capsule in the evening. fluticasone 2021-09 Yes [id number] 2{puff} Inhale 2 [facility] propionate 1-01 Puffs ity of (FLOVENT 00:00: every 12 [place] HFA) 110 00 (twelve) Medical mcg/actuati hours. Branch on inhaler Rinse mouth after each use. rosuvastati 2021-09 Yes [id number] 10mg Take 1 [facility] n 10 mg 1-01 tablet by ity of tablet 00:00: mouth at [place] 00 bedtime. Medical Branch diltiazem 2021-09 Yes [id number] 120mg Take 1 [facility] nivers 120 mg 24 1-01 capsule by ity of hr capsule 00:00: mouth in [place] 00 the Medical morning Branch and 1 capsule in the evening. fluticasone 2021-09 Yes [id number] 2{puff} Inhale 2 [facility] propionate 1-01 Puffs ity of (FLOVENT 00:00: every 12 [place] HFA) 110 00 (twelve) Medical mcg/actuati hours. Branch on inhaler Rinse mouth after each use. rosuvastati 2021-09 Yes [id number] 10mg Take 1 [facility] n 10 mg 1-01 tablet by ity of tablet 00:00: mouth at [place] 00 bedtime. Medical Branch diltiazem 2021-09 Yes [id number] 120mg Take 1 [facility] nivers 120 mg 24 1-01 capsule by ity of hr capsule 00:00: mouth in [place] 00 the Medical morning Branch and 1 capsule in the evening. fluticasone 2021-09 Yes [id number] 2{puff} Inhale 2 [facility] propionate 1-01 Puffs ity of (FLOVENT 00:00: every 12 [place] HFA) 110 00 (twelve) Medical mcg/actuati hours. Branch on inhaler Rinse mouth after each use. rosuvastati 2021-09 Yes [id number] 10mg Take 1 [facility] n 10 mg 1-01 tablet by ity of tablet 00:00: mouth at [place] 00 bedtime. Medical Branch diltiazem 2021-09 Yes [id number] 120mg Take 1 [facility] nivers 120 mg 24 1-01 capsule by ity of hr capsule 00:00: mouth in [place] 00 the Medical morning Branch and 1 capsule in the evening. fluticasone 2021-09 Yes [id number] 2{puff} Inhale 2 [facility] propionate 1-01 Puffs ity of (FLOVENT 00:00: every 12 [place] HFA) 110 00 (twelve) Medical mcg/actuati hours. Branch on inhaler Rinse mouth after each use. rosuvastati 2021-09 Yes [id number] 10mg Take 1 [facility] n 10 mg 1-01 tablet by ity of tablet 00:00: mouth at [place] 00 bedtime. Medical Branch diltiazem 2021-09 Yes [id number] 120mg Take 1 [facility] nivers 120 mg 24 1-01 capsule by ity of hr capsule 00:00: mouth in [place] 00 the Medical morning Branch and 1 capsule in the evening. fluticasone 2021-09 Yes [id number] 2{puff} Inhale 2 [facility] propionate 1-01 Puffs ity of (FLOVENT 00:00: every 12 [place] HFA) 110 00 (twelve) Medical mcg/actuati hours. Branch on inhaler Rinse mouth after each use. rosuvastati 2021-09 Yes [id number] 10mg Take 1 [facility] n 10 mg 1-01 tablet by ity of tablet 00:00: mouth at [place] 00 bedtime. Medical Branch diltiazem 2021-09 Yes [id number] 120mg Take 1 [facility] nivers 120 mg 24 1-01 capsule by ity of hr capsule 00:00: mouth in [place] 00 the Medical morning Branch and 1 capsule in the evening. fluticasone 2021-09 Yes [id number] 2{puff} Inhale 2 [facility] propionate 1-01 Puffs ity of (FLOVENT 00:00: every 12 [place] HFA) 110 00 (twelve) Medical mcg/actuati hours. Branch on inhaler Rinse mouth after each use. rosuvastati 2021-09 Yes [id number] 10mg Take 1 [facility] n 10 mg 1-01 tablet by ity of tablet 00:00: mouth at [place] 00 bedtime. Medical Branch diltiazem 2021-09 Yes [id number] 120mg Take 1 [facility] nivers 120 mg 24 1-01 capsule by ity of hr capsule 00:00: mouth in [place] 00 the Medical morning Branch and 1 capsule in the evening. fluticasone 2021-09 Yes [id number] 2{puff} Inhale 2 [facility] propionate 1-01 Puffs ity of (FLOVENT 00:00: every 12 [place] HFA) 110 00 (twelve) Medical mcg/actuati hours. Branch on inhaler Rinse mouth after each use. rosuvastati 2021-09 Yes [id number] 10mg Take 1 [facility] n 10 mg 1-01 tablet by ity of tablet 00:00: mouth at [place] 00 bedtime. Medical Branch diltiazem 2021-09 Yes [id number] 120mg Take 1 [facility] nivers 120 mg 24 1-01 capsule by ity of hr capsule 00:00: mouth in [place] 00 the Medical morning Branch and 1 capsule in the evening. fluticasone 2021-09 Yes [id number] 2{puff} Inhale 2 [facility] propionate 1-01 Puffs ity of (FLOVENT 00:00: every 12 [place] HFA) 110 00 (twelve) Medical mcg/actuati hours. Branch on inhaler Rinse mouth after each use. rosuvastati 2021-09 Yes [id number] 10mg Take 1 [facility] n 10 mg 1-01 tablet by ity of tablet 00:00: mouth at [place] 00 bedtime. Medical Branch diltiazem 2021-09 Yes [id number] 120mg Take 1 [facility] nivers 120 mg 24 1-01 capsule by ity of hr capsule 00:00: mouth in [place] 00 the Medical morning Branch and 1 capsule in the evening. fluticasone 2021-09 Yes [id number] 2{puff} Inhale 2 [facility] propionate 1-01 Puffs ity of (FLOVENT 00:00: every 12 [place] HFA) 110 00 (twelve) Medical mcg/actuati hours. Branch on inhaler Rinse mouth after each use. rosuvastati 2021-09 Yes [id number] 10mg Take 1 [facility] n 10 mg 1-01 tablet by ity of tablet 00:00: mouth at [place] 00 bedtime. Medical Branch diltiazem 2021-09 Yes [id number] 120mg Take 1 [facility] nivers 120 mg 24 1-01 capsule by ity of hr capsule 00:00: mouth in [place] 00 the Medical morning Branch and 1 capsule in the evening. fluticasone 2021-09 Yes [id number] 2{puff} Inhale 2 [facility] propionate 1-01 Puffs ity of (FLOVENT 00:00: every 12 [place] HFA) 110 00 (twelve) Medical mcg/actuati hours. Branch on inhaler Rinse mouth after each use. rosuvastati 2021-09 Yes [id number] 10mg Take 1 [facility] n 10 mg 1-01 tablet by ity of tablet 00:00: mouth at [place] 00 bedtime. Medical Branch diltiazem 2021-09 Yes [id number] 120mg Take 1 [facility] nivers 120 mg 24 1-01 capsule by ity of hr capsule 00:00: mouth in [place] 00 the Medical morning Branch and 1 capsule in the evening. fluticasone 2021-09 Yes [id number] 2{puff} Inhale 2 [facility] propionate 1-01 Puffs ity of (FLOVENT 00:00: every 12 [place] HFA) 110 00 (twelve) Medical mcg/actuati hours. Branch on inhaler Rinse mouth after each use. rosuvastati 2021-09 Yes [id number] 10mg Take 1 [facility] n 10 mg 1-01 tablet by ity of tablet 00:00: mouth at [place] 00 bedtime. Medical Branch diltiazem 2021-09 Yes [id number] 120mg Take 1 [facility] nivers 120 mg 24 1-01 capsule by ity of hr capsule 00:00: mouth in [place] 00 the Medical morning Branch and 1 capsule in the evening. fluticasone 2021-09 Yes [id number] 2{puff} Inhale 2 [facility] propionate 1-01 Puffs ity of (FLOVENT 00:00: every 12 [place] HFA) 110 00 (twelve) Medical mcg/actuati hours. Branch on inhaler Rinse mouth after each use. rosuvastati 2021-09 Yes [id number] 10mg Take 1 [facility] n 10 mg 1-01 tablet by ity of tablet 00:00: mouth at [place] 00 bedtime. Medical Branch diltiazem 2021-09 Yes [id number] 120mg Take 1 [facility] nivers 120 mg 24 1-01 capsule by ity of hr capsule 00:00: mouth in [place] 00 the Medical morning Branch and 1 capsule in the evening. fluticasone 2021-09 Yes [id number] 2{puff} Inhale 2 [facility] propionate 1-01 Puffs ity of (FLOVENT 00:00: every 12 [place] HFA) 110 00 (twelve) Medical mcg/actuati hours. Branch on inhaler Rinse mouth after each use. rosuvastati 2021-09 Yes [id number] 10mg Take 1 [facility] n 10 mg 1-01 tablet by ity of tablet 00:00: mouth at [place] 00 bedtime. Medical Branch diltiazem 2021-09 Yes [id number] 120mg Take 1 [facility] nivers 120 mg 24 1-01 capsule by ity of hr capsule 00:00: mouth in [place] 00 the Medical morning Branch and 1 capsule in the evening. fluticasone 2021-09 Yes [id number] 2{puff} Inhale 2 [facility] propionate 1-01 Puffs ity of (FLOVENT 00:00: every 12 [place] HFA) 110 00 (twelve) Medical mcg/actuati hours. Branch on inhaler Rinse mouth after each use. rosuvastati 2021-09 Yes [id number] 10mg Take 1 [facility] n 10 mg 1-01 tablet by ity of tablet 00:00: mouth at [place] 00 bedtime. Medical Branch diltiazem 2021-09 Yes [id number] 120mg Take 1 [facility] nivers 120 mg 24 1-01 capsule by ity of hr capsule 00:00: mouth in [place] 00 the Medical morning Branch and 1 capsule in the evening. fluticasone 2021-09 Yes [id number] 2{puff} Inhale 2 [facility] propionate 1-01 Puffs ity of (FLOVENT 00:00: every 12 [place] HFA) 110 00 (twelve) Medical mcg/actuati hours. Branch on inhaler Rinse mouth after each use. rosuvastati 2021-09 Yes [id number] 10mg Take 1 [facility] n 10 mg 1-01 tablet by ity of tablet 00:00: mouth at [place] 00 bedtime. Medical Branch diltiazem 2021-09 Yes [id number] 120mg Take 1 [facility] nivers 120 mg 24 1-01 capsule by ity of hr capsule 00:00: mouth in [place] 00 the Medical morning Branch and 1 capsule in the evening. fluticasone 2021-09 Yes [id number] 2{puff} Inhale 2 [facility] propionate 1-01 Puffs ity of (FLOVENT 00:00: every 12 [place] HFA) 110 00 (twelve) Medical mcg/actuati hours. Branch on inhaler Rinse mouth after each use. rosuvastati 2021-09 Yes [id number] 10mg Take 1 [facility] n 10 mg 1-01 tablet by ity of tablet 00:00: mouth at [place] 00 bedtime. Medical Branch diltiazem 2021-09 Yes [id number] 120mg Take 1 [facility] nivers 120 mg 24 1-01 capsule by ity of hr capsule 00:00: mouth in [place] 00 the Medical morning Branch and 1 capsule in the evening. fluticasone 2021-09 Yes [id number] 2{puff} Inhale 2 [facility] propionate 1-01 Puffs ity of (FLOVENT 00:00: every 12 [place] HFA) 110 00 (twelve) Medical mcg/actuati hours. Branch on inhaler Rinse mouth after each use. rosuvastati 2021-09 Yes [id number] 10mg Take 1 [facility] n 10 mg 1-01 tablet by ity of tablet 00:00: mouth at [place] 00 bedtime. Medical Branch diltiazem 2021-09 Yes [id number] 120mg Take 1 [facility] nivers 120 mg 24 1-01 capsule by ity of hr capsule 00:00: mouth in [place] 00 the Medical morning Branch and 1 capsule in the evening. fluticasone 2021-09 Yes [id number] 2{puff} Inhale 2 [facility] propionate 1-01 Puffs ity of (FLOVENT 00:00: every 12 [place] HFA) 110 00 (twelve) Medical mcg/actuati hours. Branch on inhaler Rinse mouth after each use. rosuvastati 2021-09 Yes [id number] 10mg Take 1 [facility] n 10 mg 1-01 tablet by ity of tablet 00:00: mouth at [place] 00 bedtime. Medical Branch diltiazem 2021-09 Yes [id number] 120mg Take 1 [facility] nivers 120 mg 24 1-01 capsule by ity of hr capsule 00:00: mouth in [place] 00 the Medical morning Branch and 1 capsule in the evening. fluticasone 2021-09 Yes [id number] 2{puff} Inhale 2 [facility] propionate 1-01 Puffs ity of (FLOVENT 00:00: every 12 [place] HFA) 110 00 (twelve) Medical mcg/actuati hours. Branch on inhaler Rinse mouth after each use. rosuvastati 2021-09 Yes [id number] 10mg Take 1 [facility] n 10 mg 1-01 tablet by ity of tablet 00:00: mouth at [place] 00 bedtime. Medical Branch diltiazem 2021-09 Yes [id number] 120mg Take 1 [facility] nivers 120 mg 24 1-01 capsule by ity of hr capsule 00:00: mouth in [place] 00 the Medical morning Branch and 1 capsule in the evening. fluticasone 2021-09 Yes [id number] 2{puff} Inhale 2 [facility] propionate 1-01 Puffs ity of (FLOVENT 00:00: every 12 [place] HFA) 110 00 (twelve) Medical mcg/actuati hours. Branch on inhaler Rinse mouth after each use. rosuvastati 2021-09 Yes [id number] 10mg Take 1 [facility] n 10 mg 1-01 tablet by ity of tablet 00:00: mouth at [place] 00 bedtime. Medical Branch diltiazem 2021-09 Yes [id number] 120mg Take 1 [facility] nivers 120 mg 24 1-01 capsule by ity of hr capsule 00:00: mouth in [place] 00 the Medical morning Branch and 1 capsule in the evening. fluticasone 2021-09 Yes [id number] 2{puff} Inhale 2 [facility] propionate 1-01 Puffs ity of (FLOVENT 00:00: every 12 [place] HFA) 110 00 (twelve) Medical mcg/actuati hours. Branch on inhaler Rinse mouth after each use. rosuvastati 2021-09 Yes [id number] 10mg Take 1 [facility] n 10 mg 1-01 tablet by ity of tablet 00:00: mouth at [place] 00 bedtime. Medical Branch diltiazem 2021-09 Yes [id number] 120mg Take 1 [facility] nivers 120 mg 24 1-01 capsule by ity of hr capsule 00:00: mouth in [place] as 00 the Medical morning Branch and 1 capsule in the evening. fluticasone 2021-09 Yes [id number] 2{puff} Inhale 2 [facility] propionate 1-01 Puffs ity of (FLOVENT 00:00: every 12 [place] HFA) 110 00 (twelve) Medical mcg/actuati hours. Branch on inhaler Rinse mouth after each use. rosuvastati 2021-09 Yes [id number] 10mg Take 1 [facility] n 10 mg 1-01 tablet by ity of tablet 00:00: mouth at [place] 00 bedtime. Medical Branch diltiazem 2021-09 Yes [id number] 120mg Take 1 [facility] nivers 120 mg 24 1-01 capsule by ity of hr capsule 00:00: mouth in [place] 00 the Medical morning Branch and 1 capsule in the evening. fluticasone 2021-09 Yes [id number] 2{puff} Inhale 2 [facility] propionate 1-01 Puffs ity of (FLOVENT 00:00: every 12 [place] HFA) 110 00 (twelve) Medical mcg/actuati hours. Branch on inhaler Rinse mouth after each use. rosuvastati 2021-09 Yes [id number] 10mg Take 1 [facility] n 10 mg 1-01 tablet by ity of tablet 00:00: mouth at [place] 00 bedtime. Medical Branch diltiazem 2021-09 Yes [id number] 120mg Take 1 [facility] nivers 120 mg 24 1-01 capsule by ity of hr capsule 00:00: mouth in [place] 00 the Medical morning Branch and 1 capsule in the evening. fluticasone 2021-09 Yes [id number] 2{puff} Inhale 2 [facility] propionate 1-01 Puffs ity of (FLOVENT 00:00: every 12 [place] HFA) 110 00 (twelve) Medical mcg/actuati hours. Branch on inhaler Rinse mouth after each use. rosuvastati 2021-09 Yes [id number] 10mg Take 1 [facility] n 10 mg 1-01 tablet by ity of tablet 00:00: mouth at [place] 00 bedtime. Medical Branch diltiazem 2021-09 Yes [id number] 120mg Take 1 [facility] nivers 120 mg 24 1-01 capsule by ity of hr capsule 00:00: mouth in [place] 00 the Medical morning Branch and 1 capsule in the evening. fluticasone 2021-09 Yes [id number] 2{puff} Inhale 2 [facility] propionate 1-01 Puffs ity of (FLOVENT 00:00: every 12 [place] HFA) 110 00 (twelve) Medical mcg/actuati hours. Branch on inhaler Rinse mouth after each use. rosuvastati 2021-09 Yes [id number] 10mg Take 1 [facility] n 10 mg 1-01 tablet by ity of tablet 00:00: mouth at [place] 00 bedtime. Medical Branch diltiazem 2021-09 Yes [id number] 120mg Take 1 [facility] nivers 120 mg 24 1-01 capsule by ity of hr capsule 00:00: mouth in [place] 00 the Medical morning Branch and 1 capsule in the evening. fluticasone 2021-09 Yes [id number] 2{puff} Inhale 2 [facility] propionate 1-01 Puffs ity of (FLOVENT 00:00: every 12 [place] HFA) 110 00 (twelve) Medical mcg/actuati hours. Branch on inhaler Rinse mouth after each use. rosuvastati 2021-09 Yes [id number] 10mg Take 1 [facility] n 10 mg 1-01 tablet by ity of tablet 00:00: mouth at [place] 00 bedtime. Medical Branch diltiazem 2021-09 Yes [id number] 120mg Take 1 [facility] nivers 120 mg 24 1-01 capsule by ity of hr capsule 00:00: mouth in [place] as 00 the Medical morning Branch and 1 capsule in the evening. fluticasone 2021-09 Yes [id number] 2{puff} Inhale 2 [facility] propionate 1-01 Puffs ity of (FLOVENT 00:00: every 12 [place] HFA) 110 00 (twelve) Medical mcg/actuati hours. Branch on inhaler Rinse mouth after each use. rosuvastati 2021-09 Yes [id number] 10mg Take 1 [facility] n 10 mg 1-01 tablet by ity of tablet 00:00: mouth at [place] 00 bedtime. Medical Branch diltiazem 2021-09 Yes [id number] 120mg Take 1 [facility] nivers 120 mg 24 1-01 capsule by ity of hr capsule 00:00: mouth in [place] 00 the Medical morning Branch and 1 capsule in the evening. fluticasone 2021-09 Yes [id number] 2{puff} Inhale 2 [facility] propionate 1-01 Puffs ity of (FLOVENT 00:00: every 12 [place] HFA) 110 00 (twelve) Medical mcg/actuati hours. Branch on inhaler Rinse mouth after each use. rosuvastati 2021-09 Yes [id number] 10mg Take 1 [facility] n 10 mg 1-01 tablet by ity of tablet 00:00: mouth at [place] 00 bedtime. Medical Branch metformin 2021-09- No [id number] 500mg Take 1 [facility] ER 500 mg 09-26 tablet by ity of 24 hr 00:00: 00:00 mouth [place] tablet 00 :00 daily with Medical breakfast. Branch pantoprazol 2021-09- No [id number] 40mg Take 1 [facility] e 40 mg EC 09-26 tablet by ity of tablet 00:00: 00:00 mouth in [place] 00 :00 the Medical morning. [place] SUMAtriptan 2021-09- No [id number] 50mg Take 1 [facility] 50 mg 09-26 tablet by ity of tablet 00:00: 00:00 mouth as [place] 00 :00 needed for Medical Migraine. [place] metformin 2021-09- No [id number] 500mg Take 1 [facility] ER 500 mg 09-26 tablet by ity of 24 hr 00:00: 00:00 mouth [place] tablet 00 :00 daily with Medical breakfast. [place] pantoprazol 2021-09- No [id number] 40mg Take 1 [facility] e 40 mg EC 09-26 tablet by ity of tablet 00:00: 00:00 mouth in [place] 00 :00 the Medical morning. [place] SUMAtriptan 2021-09- No [id number] 50mg Take 1 [facility] 50 mg 09-26 tablet by ity of tablet 00:00: 00:00 mouth as [place] 00 :00 needed for Medical Migraine. [place] metformin 2021-09- No [id number] 500mg Take 1 [facility] ER 500 mg 09-26 tablet by ity of 24 hr 00:00: 00:00 mouth [place] tablet 00 :00 daily with Medical breakfast. [place] pantoprazol 2021-09- No [id number] 40mg Take 1 [facility] e 40 mg EC 09-26 tablet by ity of tablet 00:00: 00:00 mouth in [place] 00 :00 the Medical morning. [place] SUMAtriptan 2021-09- No [id number] 50mg Take 1 [facility] 50 mg 09-26 tablet by ity of tablet 00:00: 00:00 mouth as [place] 00 :00 needed for Medical Migraine. [place] metformin 2021-09- No [id number] 500mg Take 1 [facility] ER 500 mg 09-26 tablet by ity of 24 hr 00:00: 00:00 mouth [place] tablet 00 :00 daily with Medical breakfast. [place] pantoprazol 2021-09- No [id number] 40mg Take 1 [facility] e 40 mg EC 09-26 tablet by ity of tablet 00:00: 00:00 mouth in [place] 00 :00 the Medical morning. Branch SUMAtriptan 2021-09- No [id number] 50mg Take 1 [facility] 50 mg 09-26 tablet by ity of tablet 00:00: 00:00 mouth as [place] 00 :00 needed for Medical Migraine. Branch metformin 2021-09- No [id number] 500mg Take 1 [facility] ER 500 mg 09-26 tablet by ity of 24 hr 00:00: 00:00 mouth [place] tablet 00 :00 daily with Medical breakfast. Branch pantoprazol 2021-09- No [id number] 40mg Take 1 [facility] e 40 mg EC 09-26 tablet by ity of tablet 00:00: 00:00 mouth in [place] 00 :00 the Medical morning. Branch SUMAtriptan 2021-09- No [id number] 50mg Take 1 [facility] 50 mg 09-26 tablet by ity of tablet 00:00: 00:00 mouth as [place] 00 :00 needed for Medical Migraine. [place] pregabalin 2021-09- No [id number] 150mg Take 1 [facility] 150 mg 09-26 capsule by ity of capsule 00:00: 00:00 mouth in [place] 00 :00 the Medical morning Branch and 1 capsule at noon and 1 capsule in the evening. levothyroxi 2021-09- No [id number] 50ug Take 1 [facility] ne 50 mcg 09-26 tablet by ity of tablet 00:00: 00:00 mouth [place] 00 :00 every Medical morning. Branch levothyroxi 2021-09- No [id number] 50ug Take 1 [facility] ne 50 mcg 09-26 tablet by ity of tablet 00:00: 00:00 mouth [place] 00 :00 every Medical morning. Branch busPIRone 2021-09 Yes [id number] 20mg Take 2 [facility] [place] 10 mg 0-13 tablets by ity of tablet 00:00: mouth in [place] 00 the Medical morning Branch and 2 tablets in the evening. diltiazem 2021-09 Yes [id number] 120mg Take 1 [facility] nivers 120 mg 24 0-13 capsule by ity of hr capsule 00:00: mouth in [place] 00 the Medical morning Branch and 1 capsule in the evening. levothyroxi 2021-09 Yes [id number] 50ug Take 1 [facility] ne 50 mcg 0-13 tablet by ity o f tablet 00:00: mouth [place] 00 every Medical morning. Branch losartan 50 2021-09 Yes [id number] 50mg Take 1 [facility] mg tablet 0-13 tablet by ity o f 00:00: mouth in [place] 00 the Medical morning Branch and 1 tablet in the evening. metformin 2021-09 Yes [id number] 500mg Take 1 U nivers ER 500 mg 0-13 tablet by ity o f 24 hr 00:00: mouth [place] tablet 00 daily with Medical breakfast. Branch STOP REGULAR METFORMIN. mirabegron 2021-09 Yes [id number] 50mg Take 1 [facility] (MYRBETRIQ) 0-13 tablet by ity of 50 mg 00:00: mouth in [place] tablet 00 the Medical morning. Branch semaglutide 2021-09 Yes [id number] Inject [facility] (OZEMPIC) 0-13 0.25 mg ity of 0.25 mg or 00:00: under the [place] 0.5 mg(2 00 skin Medical mg/1.5 mL) weekly. Branch PnIj pantoprazol 2021-09 Yes [id number] 40mg Take 1 [facility] e 40 mg EC 0-13 tablet by ity of tablet 00:00: mouth in [place] 00 the Medical morning. Branch pregabalin 2021-09 Yes [id number] 150mg Take 1 [facility] 150 mg 0-13 capsule by ity of capsule 00:00: mouth in [place] 00 the Medical morning Branch and 1 capsule at noon and 1 capsule in the evening. rosuvastati 2021-09 Yes [id number] 10mg Take 1 [facility] n 10 mg 0-13 tablet by ity of tablet 00:00: mouth at [place] 00 bedtime. Medical Branch SUMAtriptan 2021-09 Yes [id number] 50mg Take 1 [facility] 50 mg 0-13 tablet by ity of tablet 00:00: mouth as [place] 00 needed for Medical Migraine. Branch topiramate 2021-09 Yes [id number] 75mg Take 3 [facility] 25 mg 0-13 tablets by [facility] tablet 00:00: mouth in [place] 00 the Medical morning Branch and 3 tablets in the evening. busPIRone 2021-09 Yes [id number] 20mg Take 2 [facility] 10 mg 0-13 tablets by [facility] tablet 00:00: mouth in [place] 00 the Medical morning Branch and 2 tablets in the evening. losartan 50 2021-09 Yes [id number] 50mg Take 1 [facility] mg tablet 0-13 tablet by [facility] o f 00:00: mouth in [place] 00 the Medical morning Branch and 1 tablet in the evening. mirabegron 2021-09 Yes [id number] 50mg Take 1 [facility] (MYRBETRIQ) 0-13 tablet by [facility] of 50 mg 00:00: mouth in [place] tablet 00 the Medical morning. Branch semaglutide 2021-09 Yes [id number] Inject [facility] (OZEMPIC) 0-13 0.25 mg ity of 0.25 mg or 00:00: under the [place] 0.5 mg(2 00 skin Medical mg/1.5 mL) weekly. Branch PnIj topiramate 2021-09 Yes [id number] 75mg Take 3 [facility] 25 mg 0-13 tablets by [facility] tablet 00:00: mouth in [place] 00 the Medical morning Branch and 3 tablets in the evening. busPIRone 2021-09 Yes [id number] 20mg Take 2 [facility] 10 mg 0-13 tablets by [facility] tablet 00:00: mouth in [place] 00 the Medical morning Branch and 2 tablets in the evening. losartan 50 2021-09 Yes [id number] 50mg Take 1 [facility] mg tablet 0-13 tablet by [facility] o f 00:00: mouth in [place] 00 the Medical morning Branch and 1 tablet in the evening. mirabegron 2021-09 Yes [id number] 50mg Take 1 [facility] (MYRBETRIQ) 0-13 tablet by [facility] of 50 mg 00:00: mouth in [place] tablet 00 the Medical morning. Branch semaglutide 2021-09 Yes [id number] Inject [facility] (OZEMPIC) 0-13 0.25 mg ity of 0.25 mg or 00:00: under the [place] 0.5 mg(2 00 skin Medical mg/1.5 mL) weekly. Branch PnIj topiramate 2021-09 Yes [id number] 75mg Take 3 [facility] 25 mg 0-13 tablets by [facility] tablet 00:00: mouth in [place] 00 the Medical morning Branch and 3 tablets in the evening. busPIRone 2021-09 Yes [id number] 20mg Take 2 [facility] 10 mg 0-13 tablets by [facility] tablet 00:00: mouth in [place] 00 the Medical morning Branch and 2 tablets in the evening. losartan 50 2021-09 Yes [id number] 50mg Take 1 [facility] mg tablet 0-13 tablet by [facility] o f 00:00: mouth in [place] 00 the Medical morning Branch and 1 tablet in the evening. mirabegron 2021-09 Yes [id number] 50mg Take 1 [facility] (MYRBETRIQ) 0-13 tablet by [facility] of 50 mg 00:00: mouth in [place] tablet 00 the Medical morning. Branch semaglutide 2021-09 Yes [id number] Inject [facility] (OZEMPIC) 0-13 0.25 mg ity of 0.25 mg or 00:00: under the [place] 0.5 mg(2 00 skin Medical mg/1.5 mL) weekly. Branch PnIj topiramate 2021-09 Yes [id number] 75mg Take 3 [facility] 25 mg 0-13 tablets by [facility] tablet 00:00: mouth in [place] 00 the Medical morning Branch and 3 tablets in the evening. busPIRone 2021-09 Yes [id number] 20mg Take 2 [facility] 10 mg 0-13 tablets by [facility] tablet 00:00: mouth in [place] 00 the Medical morning Branch and 2 tablets in the evening. losartan 50 2021-09 Yes [id number] 50mg Take 1 [facility] mg tablet 0-13 tablet by [facility] o f 00:00: mouth in [place] 00 the Medical morning Branch and 1 tablet in the evening. mirabegron 2021-09 Yes [id number] 50mg Take 1 [facility] (MYRBETRIQ) 0-13 tablet by [facility] of 50 mg 00:00: mouth in [place] tablet 00 the Medical morning. Branch semaglutide 2021-09 Yes [id number] Inject [facility] (OZEMPIC) 0-13 0.25 mg ity of 0.25 mg or 00:00: under the [place] 0.5 mg(2 00 skin Medical mg/1.5 mL) weekly. Branch PnIj topiramate 2021-09 Yes [id number] 75mg Take 3 [facility] 25 mg 0-13 tablets by [facility] tablet 00:00: mouth in [place] 00 the Medical morning Branch and 3 tablets in the evening. busPIRone 2021-09 Yes [id number] 20mg Take 2 [facility] 10 mg 0-13 tablets by [facility] tablet 00:00: mouth in [place] 00 the Medical morning Branch and 2 tablets in the evening. losartan 50 2021-09 Yes [id number] 50mg Take 1 [facility] mg tablet 0-13 tablet by [facility] o f 00:00: mouth in [place] 00 the Medical morning Branch and 1 tablet in the evening. mirabegron 2021-09 Yes [id number] 50mg Take 1 [facility] (MYRBETRIQ) 0-13 tablet by [facility] of 50 mg 00:00: mouth in [place] tablet 00 the Medical morning. Branch semaglutide 2021-09 Yes [id number] Inject [facility] (OZEMPIC) 0-13 0.25 mg ity of 0.25 mg or 00:00: under the [place] 0.5 mg(2 00 skin Medical mg/1.5 mL) weekly. Branch PnIj topiramate 2021-09 Yes [id number] 75mg Take 3 [facility] 25 mg 0-13 tablets by [facility] tablet 00:00: mouth in [place] 00 the Medical morning Branch and 3 tablets in the evening. busPIRone 2021-09 Yes [id number] 20mg Take 2 [facility] 10 mg 0-13 tablets by [facility] tablet 00:00: mouth in [place] 00 the Medical morning Branch and 2 tablets in the evening. losartan 50 2021-09 Yes [id number] 50mg Take 1 [facility] mg tablet 0-13 tablet by [facility] o f 00:00: mouth in [place] 00 the Medical morning Branch and 1 tablet in the evening. mirabegron 2021-09 Yes [id number] 50mg Take 1 [facility] (MYRBETRIQ) 0-13 tablet by [facility] of 50 mg 00:00: mouth in [place] tablet 00 the Medical morning. Branch semaglutide 2021-09 Yes [id number] Inject [facility] (OZEMPIC) 0-13 0.25 mg ity of 0.25 mg or 00:00: under the [place] 0.5 mg(2 00 skin Medical mg/1.5 mL) weekly. Branch PnIj topiramate 2021-09 Yes [id number] 75mg Take 3 [facility] 25 mg 0-13 tablets by [facility] tablet 00:00: mouth in [place] 00 the Medical morning Branch and 3 tablets in the evening. busPIRone 2021-09 Yes [id number] 20mg Take 2 [facility] 10 mg 0-13 tablets by [facility] tablet 00:00: mouth in [place] 00 the Medical morning Branch and 2 tablets in the evening. losartan 50 2021-09 Yes [id number] 50mg Take 1 [facility] mg tablet 0-13 tablet by [facility] o f 00:00: mouth in [place] 00 the Medical morning Branch and 1 tablet in the evening. mirabegron 2021-09 Yes [id number] 50mg Take 1 [facility] (MYRBETRIQ) 0-13 tablet by [facility] of 50 mg 00:00: mouth in [place] tablet 00 the Medical morning. Branch semaglutide 2021-09 Yes [id number] Inject [facility] (OZEMPIC) 0-13 0.25 mg ity of 0.25 mg or 00:00: under the [place] 0.5 mg(2 00 skin Medical mg/1.5 mL) weekly. Branch PnIj topiramate 2021-09 Yes [id number] 75mg Take 3 [facility] 25 mg 0-13 tablets by [facility] tablet 00:00: mouth in [place] 00 the Medical morning Branch and 3 tablets in the evening. busPIRone 2021-09 Yes [id number] 20mg Take 2 [facility] 10 mg 0-13 tablets by [facility] tablet 00:00: mouth in [place] 00 the Medical morning Branch and 2 tablets in the evening. losartan 50 2021-09 Yes [id number] 50mg Take 1 [facility] mg tablet 0-13 tablet by [facility] o f 00:00: mouth in [place] 00 the Medical morning Branch and 1 tablet in the evening. mirabegron 2021-09 Yes [id number] 50mg Take 1 [facility] (MYRBETRIQ) 0-13 tablet by [facility] of 50 mg 00:00: mouth in [place] tablet 00 the Medical morning. Branch semaglutide 2021-09 Yes [id number] Inject [facility] (OZEMPIC) 0-13 0.25 mg ity of 0.25 mg or 00:00: under the [place] 0.5 mg(2 00 skin Medical mg/1.5 mL) weekly. Branch PnIj topiramate 2021-09 Yes [id number] 75mg Take 3 [facility] 25 mg 0-13 tablets by [facility] tablet 00:00: mouth in [place] 00 the Medical morning Branch and 3 tablets in the evening. busPIRone 2021-09 Yes [id number] 20mg Take 2 [facility] 10 mg 0-13 tablets by [facility] tablet 00:00: mouth in [place] 00 the Medical morning Branch and 2 tablets in the evening. losartan 50 2021-09 Yes [id number] 50mg Take 1 [facility] mg tablet 0-13 tablet by [facility] o f 00:00: mouth in [place] 00 the Medical morning Branch and 1 tablet in the evening. mirabegron 2021-09 Yes [id number] 50mg Take 1 [facility] (MYRBETRIQ) 0-13 tablet by [facility] of 50 mg 00:00: mouth in [place] tablet 00 the Medical morning. Branch semaglutide 2021-09 Yes [id number] Inject [facility] (OZEMPIC) 0-13 0.25 mg ity of 0.25 mg or 00:00: under the [place] 0.5 mg(2 00 skin Medical mg/1.5 mL) weekly. Branch PnIj topiramate 2021-09 Yes [id number] 75mg Take 3 [facility] 25 mg 0-13 tablets by [facility] tablet 00:00: mouth in [place] 00 the Medical morning Branch and 3 tablets in the evening. busPIRone 2021-09 Yes [id number] 20mg Take 2 [facility] 10 mg 0-13 tablets by [facility] tablet 00:00: mouth in [place] 00 the Medical morning Branch and 2 tablets in the evening. losartan 50 2021-09 Yes [id number] 50mg Take 1 [facility] mg tablet 0-13 tablet by [facility] o f 00:00: mouth in [place] 00 the Medical morning Branch and 1 tablet in the evening. mirabegron 2021-09 Yes [id number] 50mg Take 1 [facility] (MYRBETRIQ) 0-13 tablet by [facility] of 50 mg 00:00: mouth in [place] tablet 00 the Medical morning. Branch semaglutide 2021-09 Yes [id number] Inject [facility] (OZEMPIC) 0-13 0.25 mg ity of 0.25 mg or 00:00: under the [place] 0.5 mg(2 00 skin Medical mg/1.5 mL) weekly. Branch PnIj topiramate 2021-09 Yes [id number] 75mg Take 3 [facility] 25 mg 0-13 tablets by [facility] tablet 00:00: mouth in [place] 00 the Medical morning Branch and 3 tablets in the evening. busPIRone 2021-09 Yes [id number] 20mg Take 2 [facility] 10 mg 0-13 tablets by [facility] tablet 00:00: mouth in [place] 00 the Medical morning Branch and 2 tablets in the evening. losartan 50 2021-09 Yes [id number] 50mg Take 1 [facility] mg tablet 0-13 tablet by [facility] o f 00:00: mouth in [place] 00 the Medical morning Branch and 1 tablet in the evening. mirabegron 2021-09 Yes [id number] 50mg Take 1 [facility] (MYRBETRIQ) 0-13 tablet by [facility] of 50 mg 00:00: mouth in [place] tablet 00 the Medical morning. Branch semaglutide 2021-09 Yes [id number] Inject [facility] (OZEMPIC) 0-13 0.25 mg ity of 0.25 mg or 00:00: under the [place] 0.5 mg(2 00 skin Medical mg/1.5 mL) weekly. Branch PnIj topiramate 2021-09 Yes [id number] 75mg Take 3 [facility] 25 mg 0-13 tablets by [facility] of tablet 00:00: mouth in [place] 00 the Medical morning Branch and 3 tablets in the evening. busPIRone 2021-09 Yes [id number] 20mg Take 2 [facility] 10 mg 0-13 tablets by [facility] tablet 00:00: mouth in [place] 00 the Medical morning Branch and 2 tablets in the evening. losartan 50 2021-09 Yes [id number] 50mg Take 1 [facility] mg tablet 0-13 tablet by [facility] o f 00:00: mouth in [place] 00 the Medical morning Branch and 1 tablet in the evening. mirabegron 2021-09 Yes [id number] 50mg Take 1 [facility] (MYRBETRIQ) 0-13 tablet by [facility] of 50 mg 00:00: mouth in [place] tablet 00 the Medical morning. Branch semaglutide 2021-09 Yes [id number] Inject [facility] (OZEMPIC) 0-13 0.25 mg ity of 0.25 mg or 00:00: under the [place] 0.5 mg(2 00 skin Medical mg/1.5 mL) weekly. Branch PnIj topiramate 2021-09 Yes [id number] 75mg Take 3 [facility] 25 mg 0-13 tablets by [facility] of tablet 00:00: mouth in [place] 00 the Medical morning Branch and 3 tablets in the evening. busPIRone 2021-09 Yes [id number] 20mg Take 2 [facility] 10 mg 0-13 tablets by [facility] tablet 00:00: mouth in [place] 00 the Medical morning Branch and 2 tablets in the evening. losartan 50 2021-09 Yes [id number] 50mg Take 1 [facility] mg tablet 0-13 tablet by [facility] o f 00:00: mouth in [place] 00 the Medical morning Branch and 1 tablet in the evening. mirabegron 2021-09 Yes [id number] 50mg Take 1 [facility] (MYRBETRIQ) 0-13 tablet by [facility] of 50 mg 00:00: mouth in [place] tablet 00 the Medical morning. Branch semaglutide 2021-09 Yes [id number] Inject [facility] (OZEMPIC) 0-13 0.25 mg ity of 0.25 mg or 00:00: under the [place] 0.5 mg(2 00 skin Medical mg/1.5 mL) weekly. Branch PnIj topiramate 2021-09 Yes [id number] 75mg Take 3 [facility] 25 mg 0-13 tablets by [facility] of tablet 00:00: mouth in [place] 00 the Medical morning Branch and 3 tablets in the evening. busPIRone 2021-09 Yes [id number] 20mg Take 2 [facility] 10 mg 0-13 tablets by [facility] tablet 00:00: mouth in [place] 00 the Medical morning Branch and 2 tablets in the evening. losartan 50 2021-09 Yes [id number] 50mg Take 1 [facility] mg tablet 0-13 tablet by [facility] o f 00:00: mouth in [place] 00 the Medical morning Branch and 1 tablet in the evening. mirabegron 2021-09 Yes [id number] 50mg Take 1 [facility] (MYRBETRIQ) 0-13 tablet by [facility] of 50 mg 00:00: mouth in [place] tablet 00 the Medical morning. Branch semaglutide 2021-09 Yes [id number] Inject [facility] (OZEMPIC) 0-13 0.25 mg ity of 0.25 mg or 00:00: under the [place] 0.5 mg(2 00 skin Medical mg/1.5 mL) weekly. Branch PnIj topiramate 2021-09 Yes [id number] 75mg Take 3 [facility] 25 mg 0-13 tablets by [facility] of tablet 00:00: mouth in [place] 00 the Medical morning Branch and 3 tablets in the evening. busPIRone 2021-09 Yes [id number] 20mg Take 2 [facility] 10 mg 0-13 tablets by [facility] tablet 00:00: mouth in [place] 00 the Medical morning Branch and 2 tablets in the evening. losartan 50 2021-09 Yes [id number] 50mg Take 1 [facility] mg tablet 0-13 tablet by [facility] o f 00:00: mouth in [place] 00 the Medical morning Branch and 1 tablet in the evening. mirabegron 2021-09 Yes [id number] 50mg Take 1 [facility] (MYRBETRIQ) 0-13 tablet by [facility] of 50 mg 00:00: mouth in [place] tablet 00 the Medical morning. Branch semaglutide 2021-09 Yes [id number] Inject [facility] (OZEMPIC) 0-13 0.25 mg ity of 0.25 mg or 00:00: under the [place] 0.5 mg(2 00 skin Medical mg/1.5 mL) weekly. Branch PnIj topiramate 2021-09 Yes [id number] 75mg Take 3 [facility] 25 mg 0-13 tablets by [facility] of tablet 00:00: mouth in [place] 00 the Medical morning Branch and 3 tablets in the evening. busPIRone 2021-09 Yes [id number] 20mg Take 2 [facility] 10 mg 0-13 tablets by [facility] tablet 00:00: mouth in [place] 00 the Medical morning Branch and 2 tablets in the evening. losartan 50 2021-09 Yes [id number] 50mg Take 1 [facility] mg tablet 0-13 tablet by [facility] o f 00:00: mouth in [place] 00 the Medical morning Branch and 1 tablet in the evening. mirabegron 2021-09 Yes [id number] 50mg Take 1 [facility] (MYRBETRIQ) 0-13 tablet by [facility] of 50 mg 00:00: mouth in [place] tablet 00 the Medical morning. Branch semaglutide 2021-09 Yes [id number] Inject [facility] (OZEMPIC) 0-13 0.25 mg ity of 0.25 mg or 00:00: under the [place] 0.5 mg(2 00 skin Medical mg/1.5 mL) weekly. Branch PnIj topiramate 2021-09 Yes [id number] 75mg Take 3 [facility] 25 mg 0-13 tablets by [facility] of tablet 00:00: mouth in [place] 00 the Medical morning Branch and 3 tablets in the evening. busPIRone 2021-09 Yes [id number] 20mg Take 2 [facility] 10 mg 0-13 tablets by [facility] of tablet 00:00: mouth in [place] 00 the Medical morning Branch and 2 tablets in the evening. losartan 50 2021-09 Yes [id number] 50mg Take 1 [facility] mg tablet 0-13 tablet by [facility] o f 00:00: mouth in [place] 00 the Medical morning Branch and 1 tablet in the evening. mirabegron 2021-09 Yes [id number] 50mg Take 1 [facility] (MYRBETRIQ) 0-13 tablet by [facility] of 50 mg 00:00: mouth in [place] tablet 00 the Medical morning. Branch semaglutide 2021-09 Yes [id number] Inject [facility] (OZEMPIC) 0-13 0.25 mg ity of 0.25 mg or 00:00: under the [place] 0.5 mg(2 00 skin Medical mg/1.5 mL) weekly. Branch PnIj topiramate 2021-09 Yes [id number] 75mg Take 3 [facility] 25 mg 0-13 tablets by [facility] of tablet 00:00: mouth in [place] 00 the Medical morning Branch and 3 tablets in the evening. busPIRone 2021-09 Yes [id number] 20mg Take 2 [facility] 10 mg 0-13 tablets by [facility] of tablet 00:00: mouth in [place] 00 the Medical morning Branch and 2 tablets in the evening. losartan 50 2021-09 Yes [id number] 50mg Take 1 [facility] mg tablet 0-13 tablet by [facility] o f 00:00: mouth in [place] 00 the Medical morning Branch and 1 tablet in the evening. mirabegron 2021-09 Yes [id number] 50mg Take 1 [facility] (MYRBETRIQ) 0-13 tablet by [facility] of 50 mg 00:00: mouth in [place] tablet 00 the Medical morning. Branch semaglutide 2021-09 Yes [id number] Inject [facility] (OZEMPIC) 0-13 0.25 mg ity of 0.25 mg or 00:00: under the [place] 0.5 mg(2 00 skin Medical mg/1.5 mL) weekly. Branch PnIj topiramate 2021-09 Yes [id number] 75mg Take 3 [facility] 25 mg 0-13 tablets by [facility] of tablet 00:00: mouth in [place] 00 the Medical morning Branch and 3 tablets in the evening. busPIRone 2021-09 Yes [id number] 20mg Take 2 [facility] 10 mg 0-13 tablets by [facility] of tablet 00:00: mouth in [place] 00 the Medical morning Branch and 2 tablets in the evening. losartan 50 2021-09 Yes [id number] 50mg Take 1 [facility] mg tablet 0-13 tablet by [facility] o f 00:00: mouth in [place] 00 the Medical morning Branch and 1 tablet in the evening. mirabegron 2021-09 Yes [id number] 50mg Take 1 [facility] (MYRBETRIQ) 0-13 tablet by [facility] of 50 mg 00:00: mouth in [place] tablet 00 the Medical morning. Branch semaglutide 2021-09 Yes [id number] Inject [facility] (OZEMPIC) 0-13 0.25 mg ity of 0.25 mg or 00:00: under the [place] 0.5 mg(2 00 skin Medical mg/1.5 mL) weekly. Branch PnIj topiramate 2021-09 Yes [id number] 75mg Take 3 [facility] 25 mg 0-13 tablets by [facility] of tablet 00:00: mouth in [place] 00 the Medical morning Branch and 3 tablets in the evening. busPIRone 2021-09 Yes [id number] 20mg Take 2 [facility] 10 mg 0-13 tablets by [facility] of tablet 00:00: mouth in [place] 00 the Medical morning Branch and 2 tablets in the evening. losartan 50 2021-09 Yes [id number] 50mg Take 1 [facility] mg tablet 0-13 tablet by [facility] o f 00:00: mouth in [place] 00 the Medical morning Branch and 1 tablet in the evening. mirabegron 2021-09 Yes [id number] 50mg Take 1 [facility] (MYRBETRIQ) 0-13 tablet by [facility] of 50 mg 00:00: mouth in [place] tablet 00 the Medical morning. Branch semaglutide 2021-09 Yes [id number] Inject [facility] (OZEMPIC) 0-13 0.25 mg ity of 0.25 mg or 00:00: under the [place] 0.5 mg(2 00 skin Medical mg/1.5 mL) weekly. Branch PnIj topiramate 2021-09 Yes [id number] 75mg Take 3 [facility] 25 mg 0-13 tablets by [facility] of tablet 00:00: mouth in [place] 00 the Medical morning Branch and 3 tablets in the evening. busPIRone 2021-09 Yes [id number] 20mg Take 2 [facility] 10 mg 0-13 tablets by [facility] of tablet 00:00: mouth in [place] 00 the Medical morning Branch and 2 tablets in the evening. losartan 50 2021-09 Yes [id number] 50mg Take 1 [facility] mg tablet 0-13 tablet by [facility] o f 00:00: mouth in [place] 00 the Medical morning Branch and 1 tablet in the evening. mirabegron 2021-09 Yes [id number] 50mg Take 1 [facility] (MYRBETRIQ) 0-13 tablet by [facility] of 50 mg 00:00: mouth in [place] tablet 00 the Medical morning. Branch semaglutide 2021-09 Yes [id number] Inject [facility] (OZEMPIC) 0-13 0.25 mg ity of 0.25 mg or 00:00: under the [place] 0.5 mg(2 00 skin Medical mg/1.5 mL) weekly. Branch PnIj topiramate 2021-09 Yes [id number] 75mg Take 3 [facility] 25 mg 0-13 tablets by [facility] of tablet 00:00: mouth in [place] 00 the Medical morning Branch and 3 tablets in the evening. busPIRone 2021-09 Yes [id number] 20mg Take 2 [facility] [place] 10 mg 0-13 tablets by [facility] of tablet 00:00: mouth in [place] 00 the Medical morning Branch and 2 tablets in the evening. losartan 50 2021-09 Yes [id number] 50mg Take 1 [facility] mg tablet 0-13 tablet by [facility] o f 00:00: mouth in [place] 00 the Medical morning Branch and 1 tablet in the evening. mirabegron 2021-09 Yes [id number] 50mg Take 1 [facility] (MYRBETRIQ) 0-13 tablet by [facility] of 50 mg 00:00: mouth in [place] tablet 00 the Medical morning. Branch semaglutide 2021-09 Yes [id number] Inject [facility] (OZEMPIC) 0-13 0.25 mg ity of 0.25 mg or 00:00: under the [place] 0.5 mg(2 00 skin Medical mg/1.5 mL) weekly. Branch PnIj topiramate 2021-09 Yes [id number] 75mg Take 3 [facility] 25 mg 0-13 tablets by [facility] of tablet 00:00: mouth in [place] 00 the Medical morning Branch and 3 tablets in the evening. losartan 50 2021-09 Yes [id number] 50mg Take 1 [facility] mg tablet 0-13 tablet by [facility] o f 00:00: mouth in [place] 00 the Medical morning Branch and 1 tablet in the evening. mirabegron 2021-09 Yes [id number] 50mg Take 1 [facility] (MYRBETRIQ) 0-13 tablet by [facility] of 50 mg 00:00: mouth in [place] tablet 00 the Medical morning. Branch semaglutide 2021-09 Yes [id number] Inject [facility] (OZEMPIC) 0-13 0.25 mg ity of 0.25 mg or 00:00: under the [place] 0.5 mg(2 00 skin Medical mg/1.5 mL) weekly. Branch PnIj topiramate 2021-09 Yes [id number] 75mg Take 3 [facility] 25 mg 0-13 tablets by [facility] of tablet 00:00: mouth in [place] the Medical morning Branch and 3 tablets in the evening. losartan 50 2021-09 Yes [id number] 50mg Take 1 [facility] mg tablet 0-13 tablet by [facility] o f 00:00: mouth in [place] the Medical morning Branch and 1 tablet in the evening. mirabegron 2021-09 Yes [id number] 50mg Take 1 [facility] (MYRBETRIQ) 0-13 tablet by [facility] of 50 mg 00:00: mouth in [place] tablet 00 the Medical morning. Branch semaglutide 2021-09 Yes [id number] Inject [facility] (OZEMPIC) 0-13 0.25 mg ity of 0.25 mg or 00:00: under the [place] 0.5 mg(2 00 skin Medical mg/1.5 mL) weekly. Branch PnIj topiramate 2021-09 Yes [id number] 75mg Take 3 [facility] 25 mg 0-13 tablets by [facility] of tablet 00:00: mouth in [place] the Medical morning Branch and 3 tablets in the evening. losartan 50 2021-09 Yes [id number] 50mg Take 1 [facility] mg tablet 0-13 tablet by [facility] o f 00:00: mouth in [place] 00 the Medical morning Branch and 1 tablet in the evening. mirabegron 2021-09 Yes [id number] 50mg Take 1 [facility] (MYRBETRIQ) 0-13 tablet by [facility] of 50 mg 00:00: mouth in [place] tablet 00 the Medical morning. Branch semaglutide 2021-09 Yes [id number] Inject [facility] (OZEMPIC) 0-13 0.25 mg ity of 0.25 mg or 00:00: under the [place] 0.5 mg(2 00 skin Medical mg/1.5 mL) weekly. Branch PnIj topiramate 2021-09 Yes [id number] 75mg Take 3 [facility] 25 mg 0-13 tablets by [facility] of tablet 00:00: mouth in [place] 00 the Medical morning Branch and 3 tablets in the evening. losartan 50 2021-09 Yes [id number] 50mg Take 1 [facility] mg tablet 0-13 tablet by [facility] o f 00:00: mouth in [place] 00 the Medical morning Branch and 1 tablet in the evening. mirabegron 2021-09 Yes [id number] 50mg Take 1 [facility] (MYRBETRIQ) 0-13 tablet by [facility] of 50 mg 00:00: mouth in [place] tablet 00 the Medical morning. Branch semaglutide 2021-09 Yes [id number] Inject [facility] (OZEMPIC) 0-13 0.25 mg ity of 0.25 mg or 00:00: under the [place] 0.5 mg(2 00 skin Medical mg/1.5 mL) weekly. Branch PnIj topiramate 2021-09 Yes [id number] 75mg Take 3 [facility] 25 mg 0-13 tablets by [facility] of tablet 00:00: mouth in [place] 00 the Medical morning Branch and 3 tablets in the evening. losartan 50 2021-09 Yes [id number] 50mg Take 1 [facility] mg tablet 0-13 tablet by [facility] o f 00:00: mouth in [place] 00 the Medical morning Branch and 1 tablet in the evening. mirabegron 2021- Yes [id number] 50mg Take 1 [facility] (MYRBETRIQ) 0-13 tablet by [facility] of 50 mg 00:00: mouth in [place] tablet 00 the Medical morning. Branch semaglutide 2021-09 Yes [id number] Inject [facility] (OZEMPIC) 0-13 0.25 mg ity of 0.25 mg or 00:00: under the [place] 0.5 mg(2 00 skin Medical mg/1.5 mL) weekly. Branch PnIj topiramate 2021-09 Yes [id number] 75mg Take 3 [facility] 25 mg 0-13 tablets by [facility] of tablet 00:00: mouth in [place] 00 the Medical morning Branch and 3 tablets in the evening. losartan 50 2021-09 Yes [id number] 50mg Take 1 [facility] mg tablet 0-13 tablet by [facility] o f 00:00: mouth in [place] 00 the Medical morning Branch and 1 tablet in the evening. mirabegron 2021-09 Yes [id number] 50mg Take 1 [facility] (MYRBETRIQ) 0-13 tablet by [facility] of 50 mg 00:00: mouth in [place] tablet 00 the Medical morning. Branch semaglutide 2021-09 Yes [id number] Inject [facility] (OZEMPIC) 0-13 0.25 mg ity of 0.25 mg or 00:00: under the [place] 0.5 mg(2 00 skin Medical mg/1.5 mL) weekly. Branch PnIj topiramate 2021-09 Yes [id number] 75mg Take 3 [facility] 25 mg 0-13 tablets by [facility] of tablet 00:00: mouth in [place] 00 the Medical morning Branch and 3 tablets in the evening. losartan 50 2021-09 Yes [id number] 50mg Take 1 [facility] mg tablet 0-13 tablet by [facility] o f 00:00: mouth in [place] 00 the Medical morning Branch and 1 tablet in the evening. mirabegron 2021-09 Yes [id number] 50mg Take 1 [facility] (MYRBETRIQ) 0-13 tablet by [facility] of 50 mg 00:00: mouth in [place] tablet 00 the Medical morning. Branch semaglutide 2021-09 Yes [id number] Inject [facility] (OZEMPIC) 0-13 0.25 mg ity of 0.25 mg or 00:00: under the [place] 0.5 mg(2 00 skin Medical mg/1.5 mL) weekly. Branch PnIj topiramate 2021-09 Yes [id number] 75mg Take 3 [facility] 25 mg 0-13 tablets by [facility] of tablet 00:00: mouth in [place] 00 the Medical morning Branch and 3 tablets in the evening. losartan 50 2021-09 Yes [id number] 50mg Take 1 [facility] mg tablet 0-13 tablet by [facility] o f 00:00: mouth in [place] 00 the Medical morning Branch and 1 tablet in the evening. mirabegron 2021-09 Yes [id number] 50mg Take 1 [facility] (MYRBETRIQ) 0-13 tablet by [facility] of 50 mg 00:00: mouth in [place] tablet 00 the Medical morning. Branch semaglutide 2021-09 Yes [id number] Inject [facility] (OZEMPIC) 0-13 0.25 mg ity of 0.25 mg or 00:00: under the [place] 0.5 mg(2 00 skin Medical mg/1.5 mL) weekly. Branch PnIj topiramate 2021-09 Yes [id number] 75mg Take 3 [facility] 25 mg 0-13 tablets by [facility] tablet 00:00: mouth in [place] the Medical morning Branch and 3 tablets in the evening. losartan 50 2021-09 Yes [id number] 50mg Take 1 [facility] mg tablet 0-13 tablet by [facility] o f 00:00: mouth in [place] the Medical morning Branch and 1 tablet in the evening. mirabegron 2021-09 Yes [id number] 50mg Take 1 [facility] (MYRBETRIQ) 0-13 tablet by ity of 50 mg 00:00: mouth in [place] tablet 00 the Medical morning. Branch semaglutide 2021-09 Yes [id number] Inject [facility] (OZEMPIC) 0-13 0.25 mg ity of 0.25 mg or 00:00: under the [place] 0.5 mg(2 00 skin Medical mg/1.5 mL) weekly. Branch PnIj topiramate 2021-09 Yes [id number] 75mg Take 3 [facility] 25 mg 0-13 tablets by [facility]y of tablet 00:00: mouth in [place] the Medical morning Branch and 3 tablets in the evening. losartan 50 2021-09 Yes [id number] 50mg Take 1 [facility] mg tablet 0-13 tablet by ity o f 00:00: mouth in [place] the Medical morning Branch and 1 tablet in the evening. mirabegron 2021-09 Yes [id number] 50mg Take 1 [facility] (MYRBETRIQ) 0-13 tablet by ity of 50 mg 00:00: mouth in [place] tablet 00 the Medical morning. Branch semaglutide 2021-09 Yes [id number] Inject [facility] (OZEMPIC) 0-13 0.25 mg ity of 0.25 mg or 00:00: under the [place] 0.5 mg(2 00 skin Medical mg/1.5 mL) weekly. Branch PnIj topiramate 2021-09 Yes [id number] 75mg Take 3 [facility] 25 mg 0-13 tablets by [facility] of tablet 00:00: mouth in [place] 00 the Medical morning Branch and 3 tablets in the evening. losartan 50 2021-09 Yes [id number] 50mg Take 1 [facility] mg tablet 0-13 tablet by ity o f 00:00: mouth in [place] 00 the Medical morning Branch and 1 tablet in the evening. mirabegron 2021-09 Yes [id number] 50mg Take 1 [facility] (MYRBETRIQ) 0-13 tablet by ity of 50 mg 00:00: mouth in [place] tablet 00 the Medical morning. Branch semaglutide 2021-09 Yes [id number] Inject [facility] (OZEMPIC) 0-13 0.25 mg ity of 0.25 mg or 00:00: under the [place] 0.5 mg(2 00 skin Medical mg/1.5 mL) weekly. Branch PnIj topiramate 2021-09 Yes [id number] 75mg Take 3 [facility] 25 mg 0-13 tablets by it[facility] of tablet 00:00: mouth in [place] the Medical morning Branch and 3 tablets in the evening. losartan 50 2021-09 Yes [id number] 50mg Take 1 [facility] mg tablet 0-13 tablet by ity o f 00:00: mouth in [place] the Medical morning Branch and 1 tablet in the evening. mirabegron 2021-09 Yes [id number] 50mg Take 1 [facility] (MYRBETRIQ) 0-13 tablet by ity of 50 mg 00:00: mouth in [place] tablet 00 the Medical morning. Branch semaglutide 2021-09 Yes [id number] Inject [facility] (OZEMPIC) 0-13 0.25 mg ity of 0.25 mg or 00:00: under the [place] 0.5 mg(2 00 skin Medical mg/1.5 mL) weekly. Branch PnIj topiramate 2021-09 Yes [id number] 75mg Take 3 [facility] 25 mg 0-13 tablets by [facility] of tablet 00:00: mouth in [place] 00 the Medical morning Branch and 3 tablets in the evening. losartan 50 2021-09 Yes [id number] 50mg Take 1 [facility] mg tablet 0-13 tablet by ity o f 00:00: mouth in [place] 00 the Medical morning Branch and 1 tablet in the evening. mirabegron 2021-09 Yes [id number] 50mg Take 1 [facility] (MYRBETRIQ) 0-13 tablet by ity of 50 mg 00:00: mouth in [place] tablet 00 the Medical morning. Branch semaglutide 2021-09 Yes [id number] Inject [facility] (OZEMPIC) 0-13 0.25 mg ity of 0.25 mg or 00:00: under the [place] 0.5 mg(2 00 skin Medical mg/1.5 mL) weekly. Branch PnIj topiramate 2021-09 Yes [id number] 75mg Take 3 [facility] 25 mg 0-13 tablets by it[facility] of tablet 00:00: mouth in [place] 00 the Medical morning Branch and 3 tablets in the evening. losartan 50 2021-09 Yes [id number] 50mg Take 1 [facility] mg tablet 0-13 tablet by ity o f 00:00: mouth in [place] 00 the Medical morning Branch and 1 tablet in the evening. mirabegron 2021-09 Yes [id number] 50mg Take 1 [facility] (MYRBETRIQ) 0-13 tablet by ity of 50 mg 00:00: mouth in [place] tablet 00 the Medical morning. Branch semaglutide 2021-09 Yes [id number] Inject [facility] (OZEMPIC) 0-13 0.25 mg ity of 0.25 mg or 00:00: under the [place] 0.5 mg(2 00 skin Medical mg/1.5 mL) weekly. Branch PnIj topiramate 2021-09 Yes [id number] 75mg Take 3 [facility] 25 mg 0-13 tablets by it[facility] of tablet 00:00: mouth in [place] 00 the Medical morning Branch and 3 tablets in the evening. losartan 50 2021-09 Yes [id number] 50mg Take 1 [facility] mg tablet 0-13 tablet by ity o f 00:00: mouth in [place] 00 the Medical morning Branch and 1 tablet in the evening. mirabegron 2021-09 Yes [id number] 50mg Take 1 [facility] (MYRBETRIQ) 0-13 tablet by ity of 50 mg 00:00: mouth in [place] tablet 00 the Medical morning. Branch semaglutide 2021-09 Yes [id number] Inject [facility] (OZEMPIC) 0-13 0.25 mg ity of 0.25 mg or 00:00: under the [place] 0.5 mg(2 00 skin Medical mg/1.5 mL) weekly. Branch PnIj topiramate 2021-09 Yes [id number] 75mg Take 3 [facility] 25 mg 0-13 tablets by [facility] of tablet 00:00: mouth in [place] 00 the Medical morning Branch and 3 tablets in the evening. losartan 50 2021-09 Yes [id number] 50mg Take 1 [facility] mg tablet 0-13 tablet by ity o f 00:00: mouth in [place] 00 the Medical morning Branch and 1 tablet in the evening. mirabegron 2021-09 Yes [id number] 50mg Take 1 [facility] (MYRBETRIQ) 0-13 tablet by ity of 50 mg 00:00: mouth in [place] tablet 00 the Medical morning. Branch semaglutide 2021-09 Yes [id number] Inject [facility] (OZEMPIC) 0-13 0.25 mg ity of 0.25 mg or 00:00: under the [place] 0.5 mg(2 00 skin Medical mg/1.5 mL) weekly. Branch PnIj topiramate 2021-09 Yes [id number] 75mg Take 3 [facility] 25 mg 0-13 tablets by [facility] of tablet 00:00: mouth in [place] the Medical morning Branch and 3 tablets in the evening. losartan 50 2021-09 Yes [id number] 50mg Take 1 [facility] mg tablet 0-13 tablet by ity o f 00:00: mouth in [place] 00 the Medical morning Branch and 1 tablet in the evening. mirabegron 2021-09 Yes [id number] 50mg Take 1 [facility] (MYRBETRIQ) 0-13 tablet by ity of 50 mg 00:00: mouth in [place] tablet 00 the Medical morning. Branch semaglutide 2021-09 Yes [id number] Inject [facility] (OZEMPIC) 0-13 0.25 mg ity of 0.25 mg or 00:00: under the [place] 0.5 mg(2 00 skin Medical mg/1.5 mL) weekly. Branch PnIj topiramate 2021-09 Yes [id number] 75mg Take 3 [facility] 25 mg 0-13 tablets by [facility] of tablet 00:00: mouth in [place] 00 the Medical morning Branch and 3 tablets in the evening. losartan 50 2021-09 Yes [id number] 50mg Take 1 [facility] mg tablet 0-13 tablet by ity o f 00:00: mouth in [place] 00 the Medical morning Branch and 1 tablet in the evening. mirabegron 2021-09 Yes [id number] 50mg Take 1 [facility] (MYRBETRIQ) 0-13 tablet by ity of 50 mg 00:00: mouth in [place] tablet 00 the Medical morning. Branch semaglutide 2021-09 Yes [id number] Inject [facility] (OZEMPIC) 0-13 0.25 mg ity of 0.25 mg or 00:00: under the [place] 0.5 mg(2 00 skin Medical mg/1.5 mL) weekly. Branch PnIj topiramate 2021-09 Yes [id number] 75mg Take 3 [facility] 25 mg 0-13 tablets by ity of tablet 00:00: mouth in [place] 00 the Medical morning Branch and 3 tablets in the evening. losartan 50 2021-09 Yes [id number] 50mg Take 1 [facility] mg tablet 0-13 tablet by ity o f 00:00: mouth in [place] 00 the Medical morning Branch and 1 tablet in the evening. mirabegron 2021-09 Yes [id number] 50mg Take 1 [facility] (MYRBETRIQ) 0-13 tablet by ity of 50 mg 00:00: mouth in [place] tablet 00 the Medical morning. Branch semaglutide 2021-09 Yes [id number] Inject [facility] (OZEMPIC) 0-13 0.25 mg ity of 0.25 mg or 00:00: under the [place] 0.5 mg(2 00 skin Medical mg/1.5 mL) weekly. Branch PnIj topiramate 2021-09 Yes [id number] 75mg Take 3 [facility] 25 mg 0-13 tablets by [facility] of tablet 00:00: mouth in [place] 00 the Medical morning Branch and 3 tablets in the evening. losartan 50 2021-09 Yes [id number] 50mg Take 1 [facility] mg tablet 0-13 tablet by ity o f 00:00: mouth in [place] 00 the Medical morning Branch and 1 tablet in the evening. mirabegron 2021-09 Yes [id number] 50mg Take 1 [facility] (MYRBETRIQ) 0-13 tablet by ity of 50 mg 00:00: mouth in [place] tablet 00 the Medical morning. Branch semaglutide 2021-09 Yes [id number] Inject [facility] (OZEMPIC) 0-13 0.25 mg ity of 0.25 mg or 00:00: under the [place] 0.5 mg(2 00 skin Medical mg/1.5 mL) weekly. Branch PnIj topiramate 2021-09 Yes [id number] 75mg Take 3 [facility] 25 mg 0-13 tablets by [facility] of tablet 00:00: mouth in [place] 00 the Medical morning Branch and 3 tablets in the evening. losartan 50 2021-09 Yes [id number] 50mg Take 1 [facility] mg tablet 0-13 tablet by ity o f 00:00: mouth in [place] 00 the Medical morning Branch and 1 tablet in the evening. mirabegron 2021-09 Yes [id number] 50mg Take 1 [facility] (MYRBETRIQ) 0-13 tablet by ity of 50 mg 00:00: mouth in [place] tablet 00 the Medical morning. Branch semaglutide 2021-09 Yes [id number] Inject [facility] (OZEMPIC) 0-13 0.25 mg ity of 0.25 mg or 00:00: under the [place] 0.5 mg(2 00 skin Medical mg/1.5 mL) weekly. Branch PnIj topiramate 2021-09 Yes [id number] 75mg Take 3 [facility] 25 mg 0-13 tablets by ity of tablet 00:00: mouth in [place] 00 the Medical morning Branch and 3 tablets in the evening. losartan 50 2021-09 Yes [id number] 50mg Take 1 [facility] mg tablet 0-13 tablet by ity o f 00:00: mouth in [place] 00 the Medical morning Branch and 1 tablet in the evening. mirabegron 2021-09 Yes [id number] 50mg Take 1 [facility] (MYRBETRIQ) 0-13 tablet by ity of 50 mg 00:00: mouth in [place] tablet 00 the Medical morning. Branch topiramate 2021-09 Yes [id number] 75mg Take 3 [facility] 25 mg 0-13 tablets by ity of tablet 00:00: mouth in [place] 00 the Medical morning Branch and 3 tablets in the evening. losartan 50 2021-09 Yes [id number] 50mg Take 1 [facility] mg tablet 0-13 tablet by ity o f 00:00: mouth in [place] 00 the Medical morning Branch and 1 tablet in the evening. mirabegron 2021-09 Yes [id number] 50mg Take 1 [facility] (MYRBETRIQ) 0-13 tablet by ity of 50 mg 00:00: mouth in [place] tablet 00 the Medical morning. Branch topiramate 2021-09 Yes [id number] 75mg Take 3 [facility] 25 mg 0-13 tablets by ity of tablet 00:00: mouth in [place] 00 the Medical morning Branch and 3 tablets in the evening. losartan 50 2021-09 Yes [id number] 50mg Take 1 [facility] mg tablet 0-13 tablet by ity o f 00:00: mouth in [place] 00 the Medical morning Branch and 1 tablet in the evening. mirabegron 2021-09 Yes [id number] 50mg Take 1 [facility] (MYRBETRIQ) 0-13 tablet by ity of 50 mg 00:00: mouth in [place] tablet 00 the Medical morning. Branch topiramate 2021-09 Yes [id number] 75mg Take 3 [facility] 25 mg 0-13 tablets by ity of tablet 00:00: mouth in [place] 00 the Medical morning Branch and 3 tablets in the evening. losartan 50 2021-09 Yes [id number] 50mg Take 1 [facility] mg tablet 0-13 tablet by ity o f 00:00: mouth in [place] 00 the Medical morning Branch and 1 tablet in the evening. mirabegron 2021-09 Yes [id number] 50mg Take 1 [facility] (MYRBETRIQ) 0-13 tablet by ity of 50 mg 00:00: mouth in [place] tablet 00 the Medical morning. Branch topiramate 2021-09 Yes [id number] 75mg Take 3 [facility] 25 mg 0-13 tablets by ity of tablet 00:00: mouth in [place] 00 the Medical morning Branch and 3 tablets in the evening. losartan 50 2021-09 Yes [id number] 50mg Take 1 [facility] mg tablet 0-13 tablet by ity o f 00:00: mouth in [place] 00 the Medical morning Branch and 1 tablet in the evening. mirabegron 2021-09 Yes [id number] 50mg Take 1 [facility] (MYRBETRIQ) 0-13 tablet by ity of 50 mg 00:00: mouth in [place] tablet 00 the Medical morning. Branch topiramate 2021-09 Yes [id number] 75mg Take 3 [facility] 25 mg 0-13 tablets by ity of tablet 00:00: mouth in [place] 00 the Medical morning Branch and 3 tablets in the evening. losartan 50 2021-09 Yes [id number] 50mg Take 1 [facility] mg tablet 0-13 tablet by ity o f 00:00: mouth in [place] 00 the Medical morning Branch and 1 tablet in the evening. mirabegron 2021-09 Yes [id number] 50mg Take 1 [facility] (MYRBETRIQ) 0-13 tablet by ity of 50 mg 00:00: mouth in [place] tablet 00 the Medical morning. Branch topiramate 2021-09 Yes [id number] 75mg Take 3 [facility] 25 mg 0-13 tablets by ity of tablet 00:00: mouth in [place] 00 the Medical morning Branch and 3 tablets in the evening. losartan 50 2021-09 Yes [id number] 50mg Take 1 [facility] mg tablet 0-13 tablet by ity o f 00:00: mouth in [place] 00 the Medical morning Branch and 1 tablet in the evening. mirabegron 2021-09 Yes [id number] 50mg Take 1 [facility] (MYRBETRIQ) 0-13 tablet by ity of 50 mg 00:00: mouth in [place] tablet 00 the Medical morning. Branch topiramate 2021-09 Yes [id number] 75mg Take 3 [facility] 25 mg 0-13 tablets by ity of tablet 00:00: mouth in [place] 00 the Medical morning Branch and 3 tablets in the evening. losartan 50 2021-09 Yes [id number] 50mg Take 1 [facility] mg tablet 0-13 tablet by ity o f 00:00: mouth in [place] 00 the Medical morning Branch and 1 tablet in the evening. mirabegron 2021-09 Yes [id number] 50mg Take 1 [facility] (MYRBETRIQ) 0-13 tablet by ity of 50 mg 00:00: mouth in [place] tablet 00 the Medical morning. Branch topiramate 2021-09 Yes [id number] 75mg Take 3 [facility] 25 mg 0-13 tablets by ity of tablet 00:00: mouth in [place] 00 the Medical morning Branch and 3 tablets in the evening. losartan 50 2021-09 Yes [id number] 50mg Take 1 [facility] mg tablet 0-13 tablet by ity o f 00:00: mouth in [place] 00 the Medical morning Branch and 1 tablet in the evening. mirabegron 2021-09 Yes [id number] 50mg Take 1 [facility] (MYRBETRIQ) 0-13 tablet by ity of 50 mg 00:00: mouth in [place] tablet 00 the Medical morning. Branch topiramate 2021-09 Yes [id number] 75mg Take 3 [facility] 25 mg 0-13 tablets by ity of tablet 00:00: mouth in [place] 00 the Medical morning Branch and 3 tablets in the evening. losartan 50 2021-09 Yes [id number] 50mg Take 1 [facility] mg tablet 0-13 tablet by ity o f 00:00: mouth in [place] 00 the Medical morning Branch and 1 tablet in the evening. mirabegron 2021-09 Yes [id number] 50mg Take 1 [facility] (MYRBETRIQ) 0-13 tablet by ity of 50 mg 00:00: mouth in [place] tablet 00 the Medical morning. Branch topiramate 2021-09 Yes [id number] 75mg Take 3 [facility] 25 mg 0-13 tablets by ity of tablet 00:00: mouth in [place] 00 the Medical morning Branch and 3 tablets in the evening. losartan 50 2021-09 Yes [id number] 50mg Take 1 [facility] mg tablet 0-13 tablet by ity o f 00:00: mouth in [place] 00 the Medical morning Branch and 1 tablet in the evening. mirabegron 2021-09 Yes [id number] 50mg Take 1 [facility] (MYRBETRIQ) 0-13 tablet by ity of 50 mg 00:00: mouth in [place] tablet 00 the Medical morning. Branch topiramate 2021-09 Yes [id number] 75mg Take 3 [facility] 25 mg 0-13 tablets by ity of tablet 00:00: mouth in [place] 00 the Medical morning Branch and 3 tablets in the evening. losartan 50 2021-09 Yes [id number] 50mg Take 1 [facility] mg tablet 0-13 tablet by ity o f 00:00: mouth in [place] 00 the Medical morning Branch and 1 tablet in the evening. mirabegron 2021-09 Yes [id number] 50mg Take 1 [facility] (MYRBETRIQ) 0-13 tablet by ity of 50 mg 00:00: mouth in [place] tablet 00 the Medical morning. Branch topiramate 2021-09 Yes [id number] 75mg Take 3 [facility] 25 mg 0-13 tablets by ity of tablet 00:00: mouth in [place] 00 the Medical morning Branch and 3 tablets in the evening. losartan 50 2021-09 Yes [id number] 50mg Take 1 [facility] mg tablet 0-13 tablet by ity o f 00:00: mouth in [place] 00 the Medical morning Branch and 1 tablet in the evening. mirabegron 2021-09 Yes [id number] 50mg Take 1 [facility] (MYRBETRIQ) 0-13 tablet by ity of 50 mg 00:00: mouth in [place] tablet 00 the Medical morning. Branch topiramate 2021-09 Yes [id number] 75mg Take 3 [facility] 25 mg 0-13 tablets by ity of tablet 00:00: mouth in [place] 00 the Medical morning Branch and 3 tablets in the evening. losartan 50 2021-09 Yes [id number] 50mg Take 1 [facility] mg tablet 0-13 tablet by ity o f 00:00: mouth in [place] 00 the Medical morning Branch and 1 tablet in the evening. mirabegron 2021-09 Yes [id number] 50mg Take 1 [facility] (MYRBETRIQ) 0-13 tablet by ity of 50 mg 00:00: mouth in [place] tablet 00 the Medical morning. Branch topiramate 2021-09 Yes [id number] 75mg Take 3 [facility] 25 mg 0-13 tablets by ity of tablet 00:00: mouth in [place] 00 the Medical morning Branch and 3 tablets in the evening. losartan 50 2021-09 Yes [id number] 50mg Take 1 [facility] mg tablet 0-13 tablet by ity o f 00:00: mouth in [place] 00 the Medical morning Branch and 1 tablet in the evening. mirabegron 2021-09 Yes [id number] 50mg Take 1 [facility] (MYRBETRIQ) 0-13 tablet by ity of 50 mg 00:00: mouth in [place] tablet 00 the Medical morning. Branch topiramate 2021-09 Yes [id number] 75mg Take 3 [facility] 25 mg 0-13 tablets by ity of tablet 00:00: mouth in [place] 00 the Medical morning Branch and 3 tablets in the evening. losartan 50 2021-09 Yes [id number] 50mg Take 1 [facility] mg tablet 0-13 tablet by ity o f 00:00: mouth in [place] 00 the Medical morning Branch and 1 tablet in the evening. mirabegron 2021-09 Yes [id number] 50mg Take 1 [facility] (MYRBETRIQ) 0-13 tablet by ity of 50 mg 00:00: mouth in [place] tablet 00 the Medical morning. Branch topiramate 2021-09 Yes [id number] 75mg Take 3 [facility] 25 mg 0-13 tablets by ity of tablet 00:00: mouth in [place] 00 the Medical morning Branch and 3 tablets in the evening. losartan 50 2021-09 Yes [id number] 50mg Take 1 [facility] mg tablet 0-13 tablet by ity o f 00:00: mouth in [place] 00 the Medical morning Branch and 1 tablet in the evening. mirabegron 2021-09 Yes [id number] 50mg Take 1 [facility] (MYRBETRIQ) 0-13 tablet by ity of 50 mg 00:00: mouth in [place] tablet 00 the Medical morning. Branch topiramate 2021-09 Yes [id number] 75mg Take 3 [facility] 25 mg 0-13 tablets by ity of tablet 00:00: mouth in [place] 00 the Medical morning Branch and 3 tablets in the evening. losartan 50 2021-09 Yes [id number] 50mg Take 1 [facility] mg tablet 0-13 tablet by ity o f 00:00: mouth in [place] 00 the Medical morning Branch and 1 tablet in the evening. topiramate 2021-09 Yes [id number] 75mg Take 3 [facility] 25 mg 0-13 tablets by ity of tablet 00:00: mouth in [place] 00 the Medical morning Branch and 3 tablets in the evening. losartan 50 2021-09 Yes [id number] 50mg Take 1 [facility] mg tablet 0-13 tablet by ity o f 00:00: mouth in [place] 00 the Medical morning Branch and 1 tablet in the evening. topiramate 2021-09 Yes [id number] 75mg Take 3 [facility] 25 mg 0-13 tablets by ity of tablet 00:00: mouth in [place] 00 the Medical morning Branch and 3 tablets in the evening. losartan 50 2021-09 Yes [id number] 50mg Take 1 [facility] mg tablet 0-13 tablet by ity o f 00:00: mouth in [place] [address] the Medical morning Branch and 1 tablet in the evening. topiramate 2021-09 Yes [id number] 75mg Take 3 [facility] 25 mg 0-13 tablets by ity of tablet 00:00: mouth in [place] [address] the Medical morning Branch and 3 tablets in the evening. losartan 50 2022-1 Yes [id number] 50mg Take 1 [facility] mg tablet 0-13 tablet by ity o f 00:00: mouth in [place] 00 the Medical morning Branch and 1 tablet in the evening. topiramate 2021-09 Yes [id number] 75mg Take 3 [facility] 25 mg 0-13 tablets by ity of tablet 00:00: mouth in [place] 00 the Medical morning Branch and 3 tablets in the evening. losartan 50 2021-09 Yes [id number] 50mg Take 1 [facility] mg tablet 0-13 tablet by ity o f 00:00: mouth in [place] 00 the Medical morning Branch and 1 tablet in the evening. topiramate 2021-09 Yes [id number] 75mg Take 3 [facility] 25 mg 0-13 tablets by ity of tablet 00:00: mouth in [place] 00 the Medical morning Branch and 3 tablets in the evening. losartan 50 2021-09 Yes [id number] 50mg Take 1 [facility] mg tablet 0-13 tablet by ity o f 00:00: mouth in [place] 00 the Medical morning Branch and 1 tablet in the evening. topiramate 2021-09 Yes [id number] 75mg Take 3 [facility] 25 mg 0-13 tablets by ity of tablet 00:00: mouth in [place] 00 the Medical morning Branch and 3 tablets in the evening. losartan 50 2021-09 Yes [id number] 50mg Take 1 [facility] mg tablet 0-13 tablet by ity o f 00:00: mouth in [place] 00 the Medical morning Branch and 1 tablet in the evening. topiramate 2021-09 Yes [id number] 75mg Take 3 [facility] 25 mg 0-13 tablets by ity of tablet 00:00: mouth in [place] 00 the Medical morning Branch and 3 tablets in the evening. losartan 50 2021-09 Yes [id number] 50mg Take 1 [facility] mg tablet 0-13 tablet by ity o f 00:00: mouth in [place] 00 the Medical morning Branch and 1 tablet in the evening. topiramate 2021-09 Yes [id number] 75mg Take 3 [facility] 25 mg 0-13 tablets by ity of tablet 00:00: mouth in [place] 00 the Medical morning Branch and 3 tablets in the evening. losartan 50 2021-09 Yes [id number] 50mg Take 1 [facility] mg tablet 0-13 tablet by ity o f 00:00: mouth in [place] 00 the Medical morning Branch and 1 tablet in the evening. topiramate 2021-09 Yes [id number] 75mg Take 3 [facility] 25 mg 0-13 tablets by ity of tablet 00:00: mouth in [place] 00 the Medical morning Branch and 3 tablets in the evening. mirabegron 2021-09- No [id number] 50mg Take 1 [facility] (MYRBETRIQ) 0-13 11-17 tablet by it y of 50 mg 00:00: 00:00 mouth in [place] tablet 00 :00 the Medical morning. Branch mirabegron 2021-09- No [id number] 50mg Take 1 [facility] (MYRBETRIQ) 0-11-17 tablet by it y of 50 mg 00:00: 00:00 mouth in [place] tablet 00 :00 the Medical morning. Branch mirabegron 2021-09- No [id number] 50mg Take 1 [facility] (MYRBETRIQ) 0-11-17 tablet by it y of 50 mg 00:00: 00:00 mouth in [place] tablet 00 :00 the Medical morning. Branch semaglutide 2021-09- No [id number] Inject [facility] (OZEMPIC) 0-07 0.25 mg ity of 0.25 mg or 00:00: 00:00 under the [place] 0.5 mg(2 00 :00 skin Medical mg/1.5 mL) weekly. Branch PnIj semaglutide 2021-09- No [id number] Inject [facility] (OZEMPIC) 0-07 0.25 mg ity of 0.25 mg or 00:00: 00:00 under the [place] 0.5 mg(2 00 :00 skin Medical mg/1.5 mL) weekly. [place] PnIj semaglutide 2021-09- No [id number] Inject [facility] (OZEMPIC) 0 02-07 0.25 mg ity of 0.25 mg or 00:00: 00:00 under the [place] 0.5 mg(2 00 :00 skin Medical mg/1.5 mL) weekly. [place] Pn semaglutide 2021-09- No [id number] Inject [facility] (OZEMPIC) 0 02-07 0.25 mg ity of 0.25 mg or 00:00: 00:00 under the [place] 0.5 mg(2 00 :00 skin Medical mg/1.5 mL) weekly. [place] semaglutide 2021-09- No [id number] Inject [facility] (OZEMPIC) 0 02-07 0.25 mg ity of 0.25 mg or 00:00: 00:00 under the [place] 0.5 mg(2 00 :00 skin Medical mg/1.5 mL) weekly. [place] semaglutide 2021-09- No [id number] Inject [facility] (OZEMPIC) 0-07 0.25 mg ity of 0.25 mg or 00:00: 00:00 under the [place] 0.5 mg(2 00 :00 skin Medical mg/1.5 mL) weekly. [place] semaglutide 2021-09- No [id number] Inject [facility] (OZEMPIC) 0- 0.25 mg ity of 0.25 mg or 00:00: 00:00 under the [place] 0.5 mg(2 00 :00 skin Medical mg/1.5 mL) weekly. [place] semaglutide 2021-09- No [id number] Inject [facility] (OZEMPIC) 0- 0.25 mg ity of 0.25 mg or 00:00: 00:00 under the [place] 0.5 mg(2 00 :00 skin Medical mg/1.5 mL) weekly. [place] semaglutide 2021-09- No [id number] Inject [facility] (OZEMPIC) 0- 0.25 mg ity of 0.25 mg or 00:00: 00:00 under the [place] 0.5 mg(2 00 :00 skin Medical mg/1.5 mL) weekly. [place] semaglutide 2021-09- No [id number] Inject [facility] (OZEMPIC) 0- 0.25 mg ity of 0.25 mg or 00:00: 00:00 under the [place] 0.5 mg(2 00 :00 skin Medical mg/1.5 mL) weekly. [place] semaglutide 2021-09- No [id number] Inject [facility] (OZEMPIC) 0- 0.25 mg ity of 0.25 mg or 00:00: 00:00 under the [place] 0.5 mg(2 00 :00 skin Medical mg/1.5 mL) weekly. [facility] semaglutide 2021-09- No [id number] Inject [facility] (OZEMPIC) 011-02 0.25 mg ity of 0.25 mg or 00:00: 00:00 under the [place] 0.5 mg(2 00 :00 skin Medical mg/1.5 mL) weekly. [facility] semaglutide 2021-09- No [id number] Inject [facility] (OZEMPIC) 011-02 0.25 mg ity of 0.25 mg or 00:00: 00:00 under the [place] 0.5 mg(2 00 :00 skin Medical mg/1.5 mL) weekly. [facility] semaglutide 2021-09- No [id number] Inject [facility] (OZEMPIC) 011-02 0.25 mg ity of 0.25 mg or 00:00: 00:00 under the [place] 0.5 mg(2 00 :00 skin Medical mg/1.5 mL) weekly. [facility] busPIRone 2021-09- No [id number] 20mg Take 2 U nivers 10 mg 10-12 tablets by ity of tablet 00:00: 00:00 mouth in [place] 00 :00 the Medical morning Branch and 2 tablets in the evening. diltiazem 2021-09- No [id number] 120mg Take 1 [facility] 120 mg 24 07-27 capsule by ity of hr capsule 00:00: 00:00 mouth in [place] 00 :00 the Medical morning Branch and 1 capsule in the evening. levothyroxi 2021-09- No [id number] 50ug Take 1 [facility] ne 50 mcg 07-27 tablet by ity of tablet 00:00: 00:00 mouth [place] 00 :00 every Medical morning. [place] metformin 2021-09- No [id number] 500mg Take 1 [facility] ER 500 mg 07-27 tablet by ity of 24 hr 00:00: 00:00 mouth [place] tablet 00 :00 daily with Medical breakfast. Branch STOP REGULAR METFORMIN. pantoprazol 2021-09- No [id number] 40mg Take 1 [facility] e 40 mg EC 07-27 tablet by ity of tablet 00:00: 00:00 mouth in [place] 00 :00 the Medical morning. Branch pregabalin 2021-09- No [id number] 150mg Take 1 [facility] 150 mg 07-27 capsule by ity of capsule 00:00: 00:00 mouth in [place] 00 :00 the Medical morning Branch and 1 capsule at noon and 1 capsule in the evening. rosuvastati 2021-09- No [id number] 10mg Take 1 [facility] n 10 mg 07-27 tablet by ity of tablet 00:00: 00:00 mouth at [place] 00 :00 bedtime. Medical Branch SUMAtriptan 2021-09- No [id number] 50mg Take 1 [facility] 50 mg 07-27 tablet by ity of tablet 00:00: 00:00 mouth as [place] 00 :00 needed for Medical Migraine. Branch diltiazem 2021-09- No [id number] 120mg Take 1 [facility] 120 mg 24 07-27 capsule by ity of hr capsule 00:00: 00:00 mouth in [facility] 00 :00 the Medical morning Branch and 1 capsule in the evening. levothyroxi 2021-09- No [id number] 50ug Take 1 [facility] ne 50 mcg 07-27 tablet by ity of tablet 00:00: 00:00 mouth [place] 00 :00 every Medical morning. Branch metformin 2021-09- No [id number] 500mg Take 1 [facility] ER 500 mg 07-27 tablet by ity of 24 hr 00:00: 00:00 mouth [place] tablet 00 :00 daily with Medical breakfast. Branch STOP REGULAR METFORMIN. pantoprazol 2021-09- No [id number] 40mg Take 1 [facility] e 40 mg EC 07-27 tablet by ity of tablet 00:00: 00:00 mouth in [place] 00 :00 the Medical morning. Branch pregabalin 2021-09- No [id number] 150mg Take 1 [facility] 150 mg 07-27 capsule by ity of capsule 00:00: 00:00 mouth in [place] 00 :00 the Medical morning Branch and 1 capsule at noon and 1 capsule in the evening. rosuvastati 2021-09- No [id number] 10mg Take 1 [facility] n 10 mg 0-13 11- tablet by ity of tablet 00:00: 00:00 mouth at [place] 00 :00 bedtime. Medical Branch SUMAtriptan 2021-09- No [id number] 50mg Take 1 [facility] 50 mg 0-13 11-01 tablet by ity of tablet 00:00: 00:00 mouth as [place] 00 :00 needed for Medical Migraine. Branch SUMAtriptan Yes [id number] 50mg Take 1 [facility] 50 mg 9-30 tablet by ity of tablet 00:00: mouth as [place] 00 needed for Medical Migraine. Branch SUMAtriptan Yes [id number] 50mg Take 1 [facility] 50 mg 9-30 tablet by ity of tablet 00:00: mouth as [place] 00 needed for Medical Migraine. Branch SUMAtriptan Yes [id number] 50mg Take 1 [facility] 50 mg 9-30 tablet by ity of tablet 00:00: mouth as [place] 00 needed for Medical Migraine. Branch SUMAtriptan Yes [id number] 50mg Take 1 [facility] 50 mg 9-30 tablet by ity of tablet 00:00: mouth as [place] 00 needed for Medical Migraine. Branch SUMAtriptan Yes [id number] 50mg Take 1 [facility] 50 mg 9-30 tablet by ity of tablet 00:00: mouth as [place] 00 needed for Medical Migraine. Branch SUMAtriptan 2021- No [id number] 50mg Take 1 [facility] 50 mg 9-30 10-13 tablet by ity of tablet 00:00: 00:00 mouth as [place] 00 :00 needed for Medical Migraine. Branch FOLIC ACID Yes Take by Univ ers ORAL 06-17 mouth ity of 10:41: daily. [place] 15 Medical Branch MULTIVIT Yes Take by [facility] &MINERALS/F 06-17 mouth. ity of ERROUS FUM 10:41: [place] (MULTI 15 Medical VITAMIN Branch ORAL) METHYLCELLU Yes Univ s LOSE (FIBER 06-17 ity of THERAPY 10:41: [place] [facility]) 15 Medical Branch DOCUSATE Yes Take by [employer] SODIUM 9-22 mouth. ity of (COLACE [...] Branch unit) tablet CRANBERRY Yes Take by [employer] [facility] FRUIT 06-17 mouth ity of EXTRACT [...] 15 Medical Branch MULTIVIT Yes Take by [employer] &MINERALS/F 06-17 mouth. ity of ERROUS FUM 10:41: [place] (MULTI 15 Medical VITAMIN Branch ORAL) METHYLCELLU Yes Univer s LOSE (FIBER 06-17 ity of THERAPY 10:41: [place] MISC) 15 Medical Branch DOCUSATE Yes Take by [employer] SODIUM - mouth. ity of (COLACE [...] Branch unit) tablet CRANBERRY Yes Take by [employer] [facility] FRUIT -22 mouth ity of EXTRACT [...] Uni vers 06-17 mouth. ity of 10:41: [place] [address] Medical Branch FOLIC ACID Yes Take by Univ ers ORAL 06-17 mouth ity of 10:41: daily. [place] [address] Medical Branch MULTIVIT Yes Take by Univer s &MINERALS/F 06-17 mouth. ity of ERROUS FUM 10:41: [place] (MULTI 15 Medical VITAMIN Branch ORAL) METHYLCELLU Yes Univer s LOSE (FIBER 06-17 ity of THERAPY 10:41: [facility]) Medical Branch DOCUSATE Yes Take by [...] Branch unit) tablet CRANBERRY Yes Take by [facility] rs FRUIT 06-17 mouth ity of EXTRACT 10:41: daily. [place] (CRANBERRY 15 Medical ORAL) Branch CALCIUM Yes Take by Univers ORAL -22 mouth ity of 10:41: daily. [place] [address] Medical Branch DOCOSAHEXAN Yes 1000mg Take 1,000 Univers OIC 9-22 mg by ity of ACID/EPA 10:41: mouth [place] (FISH OIL 15 daily. Medical ORAL) Branch BIOTIN ORAL Yes Take by Uni vers - mouth. ity of 10:41: [place] [address] Medical Branch FOLIC ACID Yes Take by Univ ers ORAL - mouth ity of 10:41: daily. [place] 15 Medical Branch MULTIVIT Yes Take by Univer s &MINERALS/F 9-22 mouth. ity of ERROUS FUM 10:41: [place] (MULTI 15 Medical VITAMIN Branch ORAL) METHYLCELLU 0 Yes Univer s LOSE (FIBER 9-22 ity of THERAPY 10:41: [facility]) 15 Medical Branch DOCUSATE 0 Yes [...] Branch unit) tablet CRANBERRY Yes Take by [facility] rs FRUIT - mouth ity of EXTRACT 10:41: daily. [place] (CRANBERRY 15 Medical ORAL) Branch CALCIUM Yes Take by Univers ORAL 9-22 mouth ity of 10:41: daily. [place] [address] Medical Branch DOCOSAHEXAN Yes 1000mg Take 1,000 Univers OIC 9-22 mg by ity of ACID/EPA 10:41: mouth [place] (FISH OIL 15 daily. Medical ORAL) Branch BIOTIN ORAL Yes Take by Uni vers 9- mouth. ity of 10:41: [place] [address] Medical Branch FOLIC ACID Yes Take by Univ ers ORAL 9-22 mouth ity of 10:41: daily. [place] [address] Medical Branch MULTIVIT Yes Take by Univer s &MINERALS/F 9-22 mouth. ity of ERROUS FUM 10:41: [place] (MULTI 15 Medical VITAMIN Branch ORAL) METHYLCELLU 0 Yes Univer s LOSE (FIBER 9-22 ity of THERAPY 10:41: [facility]) Medical Branch DOCUSATE 0 Yes Take by Univer s SODIUM 9-22 mouth. ity of (COLACE 10:41: [place] ORAL) 15 Medical Branch vitamin C 0 Yes [...] ORAL - mouth ity of 10:41: daily. [place] [address] Medical Branch DOCOSAHEXAN Yes 1000mg Take 1,000 Univers OIC 9-22 mg by ity of ACID/EPA 10:41: mouth [place] (FISH OIL 15 daily. Medical ORAL) Branch BIOTIN ORAL Yes Take by Uni vers 06-17 mouth. ity of 10:41: [place] [address] Medical Branch FOLIC ACID Yes Take by Univ ers ORAL 06-17 mouth ity of 10:41: daily. [place] [address] Medical Branch MULTIVIT Yes Take by Univer [...] ORAL - mouth ity of 10:41: daily. [place] [address] Medical Branch DOCOSAHEXAN 2022-0 Yes 1000mg Take 1,000 Univers OIC 9-22 [...] LOSE (FIBER 9- ity of THERAPY 10:41: [place] MISC) 15 [...] ORAL 9- mouth ity of 10:41: daily. [place] [address] Medical Branch MULTIVIT 0 Yes Take by Univer s &MINERALS/F -22 mouth. ity of ERROUS FUM 10:41: [place] (MULTI 15 Medical VITAMIN Branch ORAL) METHYLCELLU 2022-0 Yes Univer s LOSE (FIBER 9-22 ity of THERAPY 10:41: [facility]) 15 Medical Branch DOCUSATE Yes Take [...] [facility] rs FRUIT - mouth ity of EXTRACT [...] 15 Medical Branch MULTIVIT Yes Take by [facility] &MINERALS/F - mouth. ity of ERROUS FUM 10:41: [place] (MULTI 15 Medical VITAMIN Branch ORAL) METHYLCELLU Yes Univer s LOSE (FIBER 9-22 ity of THERAPY 10:41: [facility]) 15 Medical Branch DOCUSATE Yes Take by [facility] SODIUM -22 mouth. ity of (COLACE [...] Uni vers 06-17 mouth. ity of 10:41: [place] [address] Medical Branch FOLIC ACID Yes Take by Univ ers ORAL 06-17 mouth ity of 10:41: daily. [place] [address] Medical Branch MULTIVIT Yes Take by Univer s &MINERALS/F 06-17 mouth. ity of ERROUS FUM 10:41: [place] (MULTI 15 Medical VITAMIN Branch ORAL) METHYLCELLU Yes Univer s LOSE (FIBER 06-17 ity of THERAPY 10:41: [place] MISC) Medical Branch DOCUSATE Yes Take by Univer s SODIUM 06-17 mouth. ity of (COLACE 10:41: [place] ORAL) [...] Uni vers - mouth. ity of 10:41: [place] [address] Medical Branch FOLIC ACID Yes Take by [...] Branch unit) tablet CRANBERRY Yes Take by [facility] rs FRUIT - mouth ity of EXTRACT 10:41: daily. [place] (CRANBERRY 15 Medical ORAL) Branch CALCIUM Yes Take by Univers ORAL 9- mouth ity of 10:41: daily. [place] [address] Medical Branch DOCOSAHEXAN Yes 1000mg Take 1,000 Univers OIC 9-22 mg by ity of ACID/EPA 10:41: mouth [place] (FISH OIL 15 daily. Medical ORAL) Branch BIOTIN ORAL Yes Take by Uni vers - mouth. ity of 10:41: [place] [address] Medical Branch FOLIC ACID Yes Take by Univ ers ORAL 9-22 mouth ity of 10:41: daily. [place] [address] Medical Branch MULTIVIT Yes Take by Univer s &MINERALS/F -22 mouth. ity of ERROUS FUM 10:41: [place] (MULTI 15 Medical VITAMIN Branch ORAL) METHYLCELLU Yes Univer s LOSE (FIBER 9-22 ity of THERAPY 10:41: [place] MISC) Medical [...] Uni vers 06-17 mouth. ity of 10:41: [place] [address] Medical Branch FOLIC ACID Yes Take by Univ ers ORAL 06-17 mouth ity of 10:41: daily. [place] [address] Medical Branch MULTIVIT Yes Take by Univer [...] vers 06-17 mouth. ity of 10:41: [place] Medical Branch FOLIC ACID Yes Take by Univ ers ORAL 06-17 mouth ity of 10:41: daily. [place] 15 Medical Branch MULTIVIT Yes Take by Univer s &MINERALS/F 06-17 mouth. ity of ERROUS FUM 10:41: [place] (MULTI 15 Medical VITAMIN Branch ORAL) METHYLCELLU Yes [facility] s LOSE (FIBER 06-17 ity of THERAPY 10:41: [place] MISC) Medical Branch DOCUSATE Yes Take by [facility] SODIUM 06-17 mouth. ity of (COLACE [...] Uni vers 06-17 mouth. ity of 10:41: [place] [address] Medical Branch FOLIC ACID Yes Take by Univ ers ORAL - mouth ity of 10:41: daily. [place] [address] Medical Branch MULTIVIT Yes Take by Univer s &MINERALS/F -22 mouth. ity of ERROUS FUM 10:41: [place] (MULTI 15 Medical VITAMIN Branch ORAL) METHYLCELLU 2021-0 Yes Univer s LOSE (FIBER 9-22 ity of THERAPY 10:41: [facility]) 15 Medical Branch vitamin C 0 [...] Uni vers - mouth. ity of 10:41: [place] [address] Medical Branch FOLIC ACID 0 Yes Take by Univ ers ORAL - mouth ity of 10:41: daily. [place] [address] Medical Branch MULTIVIT Yes Take by Univer s &MINERALS/F - mouth. ity of ERROUS FUM 10:41: [place] (MULTI 15 Medical VITAMIN Branch ORAL) METHYLCELLU 2021-0 Yes Univer s LOSE (FIBER 9-22 ity of THERAPY 10:41: [facility]) 15 Medical Branch vitamin C 0 [...] ORAL 9-22 mouth ity of 10:41: daily. [place] [address] Medical Branch DOCOSAHEXAN Yes 1000mg Take 1,000 Univers OIC 9-22 mg by ity of ACID/EPA 10:41: mouth [place] (FISH OIL 15 daily. Medical ORAL) Branch BIOTIN ORAL Yes Take by Uni vers - mouth. ity of 10:41: [place] [address] Medical Branch FOLIC ACID Yes Take by Univ ers ORAL - mouth ity of 10:41: daily. [place] [address] Medical Branch MULTIVIT Yes Take by Univer s &MINERALS/F - mouth. ity of ERROUS FUM 10:41: [place] (MULTI 15 Medical VITAMIN Branch ORAL) METHYLCELLU Yes [facility] LOSE (FIBER - ity of THERAPY 10:41: [facility]) Medical Branch vitamin C Yes 1000mg [...] ORAL 9- mouth ity of 10:41: daily. [place] [address] Medical Branch DOCOSAHEXAN Yes 1000mg Take 1,000 Univers OIC 9-22 mg by ity of ACID/EPA 10:41: mouth [place] (FISH OIL 15 daily. Medical ORAL) Branch BIOTIN ORAL Yes Take by Uni vers 9-22 mouth. ity of 10:41: [place] [address] Medical Branch FOLIC ACID 0 Yes Take by Univ ers ORAL 9- mouth ity of 10:41: daily. [place] [address] Medical Branch MULTIVIT Yes Take by Univer s &MINERALS/F - mouth. ity of ERROUS FUM 10:41: [place] (MULTI 15 Medical VITAMIN Branch ORAL) METHYLCELLU 2022-0 Yes Univer s LOSE (FIBER 9-22 ity of THERAPY 10:41: [facility]) 15 Medical Branch vitamin C 0 [...] Uni vers 06-17 mouth. ity of 10:41: [place] [address] Medical Branch FOLIC ACID 0 Yes Take by Univ ers ORAL - mouth ity of 10:41: daily. [place] [address] Medical Branch MULTIVIT Yes Take by Univer s &MINERALS/F 06-17 mouth. ity of ERROUS FUM 10:41: [place] (MULTI 15 Medical VITAMIN Branch ORAL) METHYLCELLU 2021-0 Yes Univer s LOSE (FIBER -22 ity of THERAPY 10:41: [facility]) 15 Medical Branch vitamin C 0 [...] ORAL 9-22 mouth ity of 10:41: daily. [place] [address] Medical Branch MULTIVIT 0 Yes Take by Univer s &MINERALS/F - mouth. ity of ERROUS FUM 10:41: [place] (MULTI 15 Medical VITAMIN Branch ORAL) METHYLCELLU 0 Yes Univer s LOSE (FIBER - ity of THERAPY 10:41: [facility]) [address] [place] [address] Branch vitamin C Yes 1000mg Take 1,000 [...] ORAL 9- mouth ity of 10:41: daily. [place] [address] Medical Branch DOCOSAHEXAN Yes 1000mg Take 1,000 Univers OIC 9-22 mg by ity of ACID/EPA 10:41: mouth [place] (FISH OIL 15 daily. Medical ORAL) Branch BIOTIN ORAL Yes Take by Uni vers 9-22 mouth. ity of 10:41: [place] [address] Medical Branch FOLIC ACID 0 Yes Take by Univ ers ORAL 9-22 mouth ity of 10:41: daily. [place] [address] Medical Branch MULTIVIT 0 Yes Take by Univer s &MINERALS/F -22 mouth. ity of ERROUS FUM 10:41: [place] (MULTI 15 Medical VITAMIN Branch ORAL) METHYLCELLU 2021-0 Yes Univer s LOSE (FIBER 9-22 ity of THERAPY 10:41: [facility]) 15 Medical Branch vitamin C Yes [...] ORAL 06-17 mouth ity of 10:41: daily. [place] [address] Medical Branch DOCOSAHEXAN Yes 1000mg Take 1,000 Univers OIC 9-22 mg by ity of ACID/EPA 10:41: mouth [place] (FISH OIL 15 daily. Medical ORAL) Branch BIOTIN ORAL Yes Take by Un [place] 06-17 mouth. ity of 10:41: [place] [address] Medical Branch FOLIC ACID Yes Take by Univ ers ORAL 06-17 mouth ity of 10:41: daily. [place] [address] Medical Branch MULTIVIT Yes Take by Univer s &MINERALS/F 06-17 mouth. ity of ERROUS FUM 10:41: [place] (MULTI 15 Medical VITAMIN Branch ORAL) METHYLCELLU Yes Univer s LOSE (FIBER 06-17 ity of THERAPY 10:41: [facility]) 15 Medical Branch vitamin C Yes [...] ORAL 06-17 mouth ity of 10:41: daily. [place] [address] Medical Branch DOCOSAHEXAN Yes 1000mg Take 1,000 [...] LOSE (FIBER 9-22 ity of THERAPY 10:41: [facility]) 15 Medical Branch vitamin C Yes [...] LOSE (FIBER 9-22 ity of THERAPY 10:41: [facility]) 15 Medical Branch vitamin C 0 [...] Uni vers 06-17 mouth. ity of 10:41: [place] [address] Medical Branch FOLIC ACID Yes Take by Univ ers ORAL 06-17 mouth ity of 10:41: daily. [place] [address] Medical Branch MULTIVIT Yes Take by [facility] s &MINERALS/F 06-17 mouth. ity of ERROUS FUM 10:41: [place] (MULTI 15 Medical VITAMIN Branch ORAL) METHYLCELLU Yes [facility] s LOSE (FIBER 06-17 ity of THERAPY 10:41: [place] [facility]) Medical Branch vitamin C Yes 1000mg [...] LOSE (FIBER 9-22 ity of THERAPY 10:41: [facility]) 15 Medical Branch vitamin C 0 [...] [place] MIS) 15 Medical Branch vitamin C 0 [...] Uni vers 06-17 mouth. ity of 10:41: [place] [address] Medical Branch FOLIC ACID Yes Take by Univ ers ORAL 06-17 mouth ity of 10:41: daily. [place] [address] Medical Branch MULTIVIT Yes Take by Univer s &MINERALS/F 06-17 mouth. ity of ERROUS FUM 10:41: [place] (MULTI 15 Medical VITAMIN Branch ORAL) METHYLCELLU Yes Univer s LOSE (FIBER 06-17 ity of THERAPY 10:41: [facility]) Medical Branch vitamin C Yes 1000mg [...] LOSE (FIBER 06-17 ity of THERAPY 10:41: [facility]) 15 Medical Branch vitamin C 0 [...] [facility] rs FRUIT 06-17 mouth ity of EXTRACT [...] LOSE (FIBER - ity of THERAPY 10:41: [facility]) Medical Branch vitamin C 0 Yes [...] Uni vers 06-17 mouth. ity of 10:41: [place] [address] Medical Branch FOLIC ACID Yes Take by Univ ers ORAL 06-17 mouth ity of 10:41: daily. [place] [address] Medical Branch MULTIVIT Yes Take by [facility] &MINERALS/F 06-17 mouth. ity of ERROUS FUM 10:41: [place] (MULTI 15 Medical VITAMIN Branch ORAL) METHYLCELLU Yes Univer s LOSE (FIBER 06-17 ity of THERAPY 10:41: [place] MIS) Medical Branch vitamin C Yes 1000mg [...] Uni vers 06-17 mouth. ity of 10:41: [place] [address] Medical Branch FOLIC ACID 2022-0 Yes Take by Univ ers ORAL - mouth ity of 10:41: daily. [place] 15 Medical Branch MULTIVIT Yes Take by Univer s &MINERALS/F - mouth. ity of ERROUS FUM 10:41: [place] (MULTI 15 Medical VITAMIN Branch ORAL) METHYLCELLU 0 Yes Univer s LOSE (FIBER 9-22 ity of THERAPY 10:41: [facility]) 15 Medical Branch vitamin C 0 Yes 1000mg Take 1,000 Univers with derrell 9-22 mg by ity of hips 1,000 10:41: mouth [place] mg tablet 15 daily. Medical Branch cholecalcif 0 Yes 1000U Take 1,000 Univers edmar, 9-22 Units by ity of vitamin D3, 10:41: mouth [place] 25 mcg 15 daily. Medical (1,000 Branch unit) tablet CRANBERRY Yes Take by [facility] rs FRUIT 06-17 mouth ity of EXTRACT 10:41: daily. [place] (CRANBERRY 15 Medical ORAL) Branch CALCIUM Yes Take by Univers ORAL - mouth ity of 10:41: daily. [place] [address] Medical Branch DOCOSAHEXAN 0 Yes 1000mg Take 1,000 Univers OIC 9-22 mg by ity of ACID/EPA 10:41: mouth [place] (FISH OIL 15 daily. Medical ORAL) Branch BIOTIN ORAL 0 Yes Take by Uni vers - mouth. ity of 10:41: [place] [address] Medical Branch FOLIC ACID 0 Yes Take by Univ ers ORAL - mouth ity of 10:41: daily. [place] [address] Medical Branch MULTIVIT Yes Take by Univer s &MINERALS/F - mouth. ity of ERROUS FUM 10:41: [place] (MULTI 15 Medical VITAMIN Branch ORAL) METHYLCELLU 2021-0 Yes Univer s LOSE (FIBER 9-22 ity of THERAPY 10:41: [place] [facility]) Medical Branch vitamin C 0 Yes [...] ORAL - mouth ity of 10:41: daily. [place] [address] Medical Branch DOCOSAHEXAN Yes 1000mg Take 1,000 Univers OIC 9-22 mg by ity of ACID/EPA 10:41: mouth [place] (FISH OIL 15 daily. Medical ORAL) Branch BIOTIN ORAL Yes Take by Uni vers 06-17 mouth. ity of 10:41: [place] [address] Medical Branch FOLIC ACID Yes Take by Univ ers ORAL 06-17 mouth ity of 10:41: daily. [place] [address] Medical Branch MULTIVIT Yes Take by Univer s &MINERALS/F 06-17 mouth. ity of ERROUS FUM 10:41: [place] (MULTI 15 Medical VITAMIN Branch ORAL) METHYLCELLU Yes [facility] LOSE (FIBER 06-17 ity of THERAPY 10:41: [facility]) Medical Branch vitamin C Yes 1000mg [...] ORAL - mouth ity of 10:41: daily. [place] [address] Medical Branch DOCOSAHEXAN Yes 1000mg Take 1,000 Univers OIC 9-22 mg by ity of ACID/EPA 10:41: mouth [place] (FISH OIL 15 daily. Medical ORAL) Branch BIOTIN ORAL Yes Take by Uni vers 06-17 mouth. ity of 10:41: [place] [address] Medical Branch FOLIC ACID Yes Take by Univ ers ORAL - mouth ity of 10:41: daily. [place] 15 Medical Branch MULTIVIT Yes Take by Univer s &MINERALS/F - mouth. ity of ERROUS FUM 10:41: [place] (MULTI 15 Medical VITAMIN Branch ORAL) METHYLCELLU 0 Yes Univer s LOSE (FIBER - ity of THERAPY 10:41: [facility]) 15 Medical Branch vitamin C Yes [...] Uni vers - mouth. ity of 10:41: [place] [address] Medical Branch FOLIC ACID 0 Yes Take by Univ ers ORAL - mouth ity of 10:41: daily. [place] [address] Medical Branch MULTIVIT Yes Take by Univer s &MINERALS/F - mouth. ity of ERROUS FUM 10:41: [place] (MULTI 15 Medical VITAMIN Branch ORAL) METHYLCELLU 2021-0 Yes Univer s LOSE (FIBER 9-22 ity of THERAPY 10:41: [facility]) Medical Branch vitamin C 0 Yes [...] ORAL 9- mouth ity of 10:41: daily. [place] [address] Medical Branch DOCOSAHEXAN Yes 1000mg Take 1,000 Univers OIC 9-22 mg by ity of ACID/EPA 10:41: mouth [place] (FISH OIL 15 daily. Medical ORAL) Branch BIOTIN ORAL Yes Take by Uni vers 06-17 mouth. ity of 10:41: [place] [address] Medical Branch FOLIC ACID Yes Take by Univ ers ORAL - mouth ity of 10:41: daily. [place] [address] Medical Branch MULTIVIT Yes Take by Univer s &MINERALS/F 06-17 mouth. ity of ERROUS FUM 10:41: [place] (MULTI 15 Medical VITAMIN Branch ORAL) METHYLCELLU Yes Univer s LOSE (FIBER 06-17 ity of THERAPY 10:41: [facility]) Medical Branch vitamin C Yes 1000mg [...] ORAL 9- mouth ity of 10:41: daily. [place] [address] Medical Branch DOCOSAHEXAN Yes 1000mg Take 1,000 Univers OIC 9-22 mg by ity of ACID/EPA 10:41: mouth [place] (FISH OIL 15 daily. Medical ORAL) Branch BIOTIN ORAL Yes Take by Uni vers 06-17 mouth. ity of 10:41: [place] [address] Medical Branch FOLIC ACID Yes Take by Univ ers ORAL - mouth ity of 10:41: daily. [place] [address] Medical Branch MULTIVIT Yes Take by Univer s &MINERALS/F 06-17 mouth. ity of ERROUS FUM 10:41: [place] (MULTI 15 Medical VITAMIN Branch ORAL) METHYLCELLU 2021-0 Yes Univer s LOSE (FIBER 9-22 ity of THERAPY 10:41: [facility]) 15 Medical Branch vitamin C 0 [...] Uni vers - mouth. ity of 10:41: [place] [address] Medical Branch FOLIC ACID 0 Yes Take by Univ ers ORAL - mouth ity of 10:41: daily. [place] [address] Medical Branch MULTIVIT 0 Yes Take by Univer s &MINERALS/F 9- mouth. ity of ERROUS FUM 10:41: [place] (MULTI 15 Medical VITAMIN Branch ORAL) METHYLCELLU 2021-0 Yes Univer s LOSE (FIBER 9-22 ity of THERAPY 10:41: [facility]) 15 Medical Branch vitamin C 0 Yes 1000mg Take 1,000 Univers with derrell 9-22 mg by ity of hips 1,000 10:41: mouth [place] mg tablet 15 daily. Medical Branch cholecalcif 2021-0 Yes 1000U Take 1,000 Univers edmar, 9-22 Units by ity of vitamin D3, 10:41: mouth [place] 25 mcg 15 daily. Medical (1,000 Branch unit) tablet CRANBERRY 2021-0 Yes Take by Unive rs FRUIT 9-22 mouth ity of EXTRACT 10:41: daily. [place] (CRANBERRY 15 Medical ORAL) Branch CALCIUM Yes Take by Univers ORAL -22 mouth ity of 10:41: daily. [place] [address] Medical Branch DOCOSAHEXAN Yes 1000mg Take 1,000 Univers OIC 9-22 mg by ity of ACID/EPA 10:41: mouth [place] (FISH OIL 15 daily. Medical ORAL) Branch BIOTIN ORAL Yes Take by Uni vers 06-17 mouth. ity of 10:41: [place] [address] Medical Branch FOLIC ACID Yes Take by Univ ers ORAL 06-17 mouth ity of 10:41: daily. [place] [address] Medical Branch MULTIVIT Yes Take by [facility] &MINERALS/F 06-17 mouth. ity of ERROUS FUM 10:41: [place] (MULTI 15 Medical VITAMIN Branch ORAL) METHYLCELLU Yes [facility] s LOSE (FIBER 06-17 ity of THERAPY 10:41: [facility]) Medical Branch vitamin C Yes 1000mg [...] [facility] rs FRUIT 06-17 mouth ity of EXTRACT 10:41: daily. [place] (CRANBERRY 15 Medical ORAL) Branch CALCIUM Yes Take by Univers ORAL 06-17 mouth ity of 10:41: daily. [place] [address] Medical Branch DOCOSAHEXAN Yes 1000mg Take 1,000 Univers OIC 9-22 mg by ity of ACID/EPA 10:41: mouth [place] (FISH OIL 15 daily. Medical ORAL) Branch BIOTIN ORAL Yes Take by Uni vers 06-17 mouth. ity of 10:41: [place] [address] Medical Branch SUMAtriptan Yes [id number] 50mg Take 1 Univers 50 mg 9-22 tablet by ity of tablet 00:00: mouth as [place] 00 needed for Medical Migraine. Branch topiramate Yes [id number] 75mg Take 3 Univers 25 mg 9-22 tablets by ity of tablet 00:00: mouth in [place] 00 the Medical morning Branch and 3 tablets in the evening. SUMAtriptan 2022-0 Yes [id number] 50mg Take 1 Univers 50 mg 9-22 tablet by ity of tablet 00:00: mouth as [place] 00 needed for Medical Migraine. Branch topiramate 2022-0 Yes [id number] 75mg Take 3 Univers 25 mg 9-22 tablets by ity of tablet 00:00: mouth in [place] 00 the Medical morning Branch and 3 tablets in the evening. SUMAtriptan 2022-0 Yes [id number] 50mg Take 1 Univers 50 mg 9-22 tablet by ity of tablet 00:00: mouth as [place] [address] needed for Medical Migraine. Branch topiramate 2022-0 Yes [id number] 75mg Take 3 Univers 25 mg 9-22 tablets by ity of tablet 00:00: mouth in [place] 00 the Medical morning Branch and 3 tablets in the evening. SUMAtriptan 2022-0 Yes [id number] 50mg Take 1 Univers 50 mg 9-22 tablet by ity of tablet 00:00: mouth as [place] [id number] needed for Medical Migraine. Branch topiramate 2022-0 Yes [id number] 75mg Take 3 [facility] 25 mg 9-22 tablets by [facility] tablet 00:00: mouth in [place] 00 the Medical morning Branch and 3 tablets in the evening. topiramate 2022-0 Yes [id number] 75mg Take 3 [facility] 25 mg 9-22 tablets by [facility] tablet 00:00: mouth in [place] 00 the Medical morning Branch and 3 tablets in the evening. topiramate 2022-0 Yes [id number] 75mg Take 3 [facility] 25 mg 9-22 tablets by [facility] tablet 00:00: mouth in [place] 00 the Medical morning Branch and 3 tablets in the evening. topiramate 2022-0 Yes [id number] 75mg Take 3 [facility] 25 mg 9-22 tablets by [facility] tablet 00:00: mouth in [place] 00 the Medical morning Branch and 3 tablets in the evening. topiramate 2022-0 Yes [id number] 75mg Take 3 [facility] 25 mg 9-22 tablets by [facility] tablet 00:00: mouth in [place] 00 the Medical morning Branch and 3 tablets in the evening. topiramate 2022-0 Yes [id number] 75mg Take 3 [facility] 25 mg 9-22 tablets by [facility] tablet 00:00: mouth in [place] 00 the Medical morning Branch and 3 tablets in the evening. topiramate 2021-0 Yes [id number] 75mg Take 3 [facility] 25 mg 9-22 tablets by [facility] tablet 00:00: mouth in [place] 00 the Medical morning Branch and 3 tablets in the evening. topiramate 2021-0 2021- No [id number] 75mg Take 3 [facility] 25 mg 9-22 10-13 tablets by [facility] tablet 00:00: 00:00 mouth in [place] 00 :00 the Medical morning Branch and 3 tablets in the evening. SUMAtriptan 2021-2021- No [id number] 50mg Take 1 [facility] 50 mg 9-22 09-30 tablet by [facility] tablet 00:00: 00:00 mouth as [place] 00 :00 needed for Medical Migraine. Branch pantoprazol 0 Yes [id number] 40mg Take 1 [facility] e 40 mg EC 9-16 tablet by [facility] tablet 00:00: mouth in [place] 00 the Medical morning. Branch Simethicone 0 Yes [id number] 125mg Take 1 [facility] 125 mg 9-16 capsule by [facility] of 00:00: mouth [place] 00 after Medical meals and Branch at bedtime as needed for Gas (Per bowel prep). pantoprazol 2021-0 Yes [id number] 40mg Take 1 [facility] e 40 mg EC 9-16 tablet by [facility] tablet 00:00: mouth in [place] 00 the Medical morning. Branch Simethicone 2021-0 Yes [id number] 125mg Take 1 [facility] 125 mg 9-16 capsule by [facility] of 00:00: mouth [place] 00 after Medical meals and Branch at bedtime as needed for Gas (Per bowel prep). pantoprazol 2021-0 Yes [id number] 40mg Take 1 [facility] e 40 mg EC 9-16 tablet by [facility] tablet 00:00: mouth in [place] 00 the Medical morning. Branch Simethicone 2021-0 Yes [id number] 125mg Take 1 [facility] 125 mg 9-16 capsule by [facility] of 00:00: mouth [place] 00 after Medical meals and Branch at bedtime as needed for Gas (Per bowel prep). pantoprazol 2021-0 Yes [id number] 40mg Take 1 [facility] e 40 mg EC 9-16 tablet by [facility] tablet 00:00: mouth in [place] 00 the Medical morning. Branch Simethicone 2021-0 Yes [id number] 125mg Take 1 [facility] 125 mg 9-16 capsule by [facility] of 00:00: mouth [place] 00 after Medical meals and Branch at bedtime as needed for Gas (Per bowel prep). pantoprazol 0 Yes [id number] 40mg Take 1 [facility] e 40 mg EC 9-16 tablet by [facility] tablet 00:00: mouth in [place] 00 the Medical morning. Branch Simethicone 2021-0 Yes [id number] 125mg Take 1 [facility] 125 mg 9-16 capsule by [facility] of 00:00: mouth [place] 00 after Medical meals and Branch at bedtime as needed for Gas (Per bowel prep). pantoprazol 2021-0 Yes [id number] 40mg Take 1 [facility] e 40 mg EC 9-16 tablet by [facility] tablet 00:00: mouth in [place] 00 the Medical morning. Branch Simethicone 0 Yes [id number] 125mg Take 1 [facility] 125 mg 9-16 capsule by [facility] of 00:00: mouth [place] 00 after Medical meals and Branch at bedtime as needed for Gas (Per bowel prep). pantoprazol 0 Yes [id number] 40mg Take 1 [facility] e 40 mg EC 9-16 tablet by [facility] tablet 00:00: mouth in [place] 00 the Medical morning. Branch Simethicone 0 Yes [id number] 125mg Take 1 [facility] 125 mg 9-16 capsule by [facility] of 00:00: mouth [place] 00 after Medical meals and Branch at bedtime as needed for Gas (Per bowel prep). pantoprazol 2021-0 Yes [id number] 40mg Take 1 [facility] e 40 mg EC 9-16 tablet by [facility] tablet 00:00: mouth in [place] 00 the Medical morning. Branch Simethicone 0 Yes [id number] 125mg Take 1 [facility] 125 mg 9-16 capsule by [facility] of 00:00: mouth [place] 00 after Medical meals and Branch at bedtime as needed for Gas (Per bowel prep). pantoprazol 2021-0 Yes [id number] 40mg Take 1 [facility] e 40 mg EC 9-16 tablet by [facility] tablet 00:00: mouth in [place] 00 the Medical morning. Branch Simethicone 2021-0 Yes [id number] 125mg Take 1 [facility] 125 mg 9-16 capsule by [facility] of 00:00: mouth [place] 00 after Medical meals and Branch at bedtime as needed for Gas (Per bowel prep). pantoprazol 2021-0 Yes [id number] 40mg Take 1 [facility] e 40 mg EC 9-16 tablet by [facility] tablet 00:00: mouth in [place] 00 the Medical morning. Branch Simethicone 2021-0 Yes [id number] 125mg Take 1 [facility] 125 mg 9-16 capsule by [facility] of 00:00: mouth [place] 00 after Medical meals and Branch at bedtime as needed for Gas (Per bowel prep). pantoprazol 2021-0 Yes [id number] 40mg Take 1 [facility] e 40 mg EC 9-16 tablet by [facility] tablet 00:00: mouth in [place] 00 the Medical morning. Branch Simethicone 2021-0 Yes [id number] 125mg Take 1 [facility] 125 mg 9-16 capsule by [facility] of 00:00: mouth [place] 00 after Medical meals and Branch at bedtime as needed for Gas (Per bowel prep). pantoprazol 2021-0 Yes [id number] 40mg Take 1 [facility] e 40 mg EC 9-16 tablet by [facility] tablet 00:00: mouth in [place] 00 the Medical morning. Branch Simethicone 2021-0 Yes [id number] 125mg Take 1 [facility] 125 mg 9-16 capsule by [facility] of 00:00: mouth [place] 00 after Medical meals and Branch at bedtime as needed for Gas (Per bowel prep). pantoprazol 2021-0 Yes [id number] 40mg Take 1 [facility] e 40 mg EC 9-16 tablet by [facility] tablet 00:00: mouth in [place] 00 the Medical morning. Branch Simethicone 2021-0 Yes [id number] 125mg Take 1 [facility] 125 mg 9-16 capsule by [facility] of 00:00: mouth [place] 00 after Medical meals and Branch at bedtime as needed for Gas (Per bowel prep). pantoprazol 2021-0 Yes [id number] 40mg Take 1 [facility] e 40 mg EC 9-16 tablet by [facility] tablet 00:00: mouth in [place] 00 the Medical morning. Branch Simethicone 2021-0 Yes [id number] 125mg Take 1 [facility] 125 mg 9-16 capsule by [facility] of 00:00: mouth [place] 00 after Medical meals and Branch at bedtime as needed for Gas (Per bowel prep). pantoprazol Yes [id number] 40mg Take 1 [facility] e 40 mg EC 9-16 tablet by [facility] tablet 00:00: mouth in [place] 00 the Medical morning. Branch Simethicone 2021-0 Yes [id number] 125mg Take 1 [facility] 125 mg 9-16 capsule by [facility] of 00:00: mouth [place] 00 after Medical meals and Branch at bedtime as needed for Gas (Per bowel prep). Simethicone 0 Yes [id number] 125mg Take 1 [facility] 125 mg 9-16 capsule by [facility] of 00:00: mouth [place] 00 after Medical meals and Branch at bedtime as needed for Gas (Per bowel prep). Simethicone 0 Yes [id number] 125mg Take 1 [facility] 125 mg 9-16 capsule by [facility] of 00:00: mouth [place] 00 after Medical meals and Branch at bedtime as needed for Gas (Per bowel prep). Simethicone 2021- No [id number] 125mg Take 1 [facility] 125 mg 9-16 11-01 capsule by [facility] of 00:00: 00:00 mouth [place] 00 :00 after Medical meals and Branch at bedtime as needed for Gas (Per bowel prep). Simethicone 0 2021- No [id number] 125mg Take 1 [facility] 125 mg 9-16 11-01 capsule by [facility] of 00:00: 00:00 mouth [place] 00 :00 after Medical meals and Branch at bedtime as needed for Gas (Per bowel prep). pantoprazol 2021- No [id number] 40mg Take 1 [facility] e 40 mg EC 9-16 10-13 tablet by [facility] tablet 00:00: 00:00 mouth in [place] 00 :00 the Medical morning. Branch SUMAtriptan 2021-0 Yes [id number] TAKE 1 [facility] 50 mg 9-06 TABLET BY [facility] tablet 00:00: MOUTH [place] 00 NEEDED FOR Medical MIGRAINE Branch HEADACHE ( MAY REPEAT IN 2 HOURS ) SUMAtriptan 2021-0 Yes [id number] TAKE 1 [facility] 50 mg 9-06 TABLET BY [facility] tablet 00:00: MOUTH [place] 00 NEEDED FOR Medical MIGRAINE Branch HEADACHE ( MAY REPEAT IN 2 HOURS ) SUMAtriptan 2021-0 Yes [id number] TAKE 1 [facility] 50 mg 9-06 TABLET BY [facility] tablet 00:00: MOUTH [place] 00 NEEDED FOR Medical MIGRAINE Branch HEADACHE ( MAY REPEAT IN 2 HOURS ) SUMAtriptan 2022-0 Yes [id number] TAKE 1 [facility] 50 mg 9-06 TABLET BY [facility] tablet 00:00: MOUTH [place] 00 NEEDED FOR Medical MIGRAINE Branch HEADACHE ( MAY REPEAT IN 2 HOURS ) SUMAtriptan 2022-0 Yes [id number] TAKE 1 [facility] 50 mg 9-06 TABLET BY [facility] tablet 00:00: MOUTH [place] 00 NEEDED FOR Medical MIGRAINE Branch HEADACHE ( MAY REPEAT IN 2 HOURS ) SUMAtriptan 2022-0 Yes [id number] TAKE 1 [facility] 50 mg 9-06 TABLET BY [facility] tablet 00:00: MOUTH [place] 00 NEEDED FOR Medical MIGRAINE Branch HEADACHE ( MAY REPEAT IN 2 HOURS ) SUMAtriptan 2-0 Yes [id number] TAKE 1 [facility] 50 mg 9-06 TABLET BY [facility] tablet 00:00: MOUTH [place] 00 NEEDED FOR Medical MIGRAINE Branch HEADACHE ( MAY REPEAT IN 2 HOURS ) SUMAtriptan 2-0 Yes [id number] TAKE 1 [facility] 50 mg 9-06 TABLET BY [facility] tablet 00:00: MOUTH [place] 00 NEEDED FOR Medical MIGRAINE Branch HEADACHE ( MAY REPEAT IN 2 HOURS ) SUMAtriptan 2-0 Yes [id number] TAKE 1 [facility] 50 mg 9-06 TABLET BY [facility] tablet 00:00: MOUTH [place] 00 NEEDED FOR Medical MIGRAINE Branch HEADACHE ( MAY REPEAT IN 2 HOURS ) SUMAtriptan 2022-0 Yes [id number] TAKE 1 [facility] 50 mg 9-06 TABLET BY [facility] tablet 00:00: MOUTH [place] 00 NEEDED FOR Medical MIGRAINE Branch HEADACHE ( MAY REPEAT IN 2 HOURS ) SUMAtriptan 2-0 Yes [id number] TAKE 1 [facility] 50 mg 9-06 TABLET BY [facility] tablet 00:00: MOUTH [place] 00 NEEDED FOR Medical MIGRAINE Branch HEADACHE ( MAY REPEAT IN 2 HOURS ) SUMAtriptan 2022-0 Yes [id number] TAKE 1 [facility] 50 mg 9-06 TABLET BY [facility] tablet 00:00: MOUTH [place] 00 NEEDED FOR Medical MIGRAINE Branch HEADACHE ( MAY REPEAT IN 2 HOURS ) SUMAtriptan 2022-0 2022- No [id number] TAKE 1 [facility] 50 mg 9-06 - TABLET BY [facility] tablet 00:00: 00:00 MOUTH [place] 00 :00 NEEDED FOR Medical MIGRAINE Branch HEADACHE ( MAY REPEAT IN 2 HOURS ) SUMAtriptan 2-0 2021- No [id number] TAKE 1 [facility] 50 mg 9-03 04- TABLET BY [facility] tablet 00:00: 00:00 MOUTH [place] 00 :00 NEEDED FOR Medical MIGRAINE Branch HEADACHE ( MAY REPEAT IN 2 HOURS ) SUMAtriptan 2-0 2021- No [id number] TAKE 1 [facility] 50 mg 9-06-17 TABLET BY [facility] tablet 00:00: 00:00 MOUTH [place] 00 :00 NEEDED FOR Medical MIGRAINE Branch HEADACHE ( MAY REPEAT IN 2 HOURS ) topiramate 2022-0 Yes [id number] Take 2 [facility] 25 mg 9-01 tablets by [facility] tablet 00:00: mouth [place] 00 twice Medical daily Branch topiramate 2022-0 Yes [id number] Take 2 [facility] 25 mg 9-01 tablets by [facility] tablet 00:00: mouth [place] 00 twice Medical daily Branch topiramate 2022-0 Yes [id number] Take 2 [facility] 25 mg 9-01 tablets by [facility] tablet 00:00: mouth [place] 00 twice Medical daily Branch topiramate 2022-0 Yes [id number] Take 2 [facility] 25 mg 9-01 tablets by [facility] tablet 00:00: mouth [place] 00 twice Medical daily Branch topiramate 2022-0 Yes [id number] Take 2 [facility] 25 mg 9-01 tablets by [facility] tablet 00:00: mouth [place] 00 twice Medical daily Branch topiramate 2022-0 Yes [id number] Take 2 [facility] 25 mg 9-01 tablets by [facility] tablet 00:00: mouth [place] 00 twice Medical daily Branch topiramate 2022-0 Yes [id number] Take 2 [facility] 25 mg 9-01 tablets by [facility] tablet 00:00: mouth [place] 00 twice Medical daily Branch topiramate 2022-0 Yes [id number] Take 2 [facility] 25 mg 9-01 tablets by [facility] tablet 00:00: mouth [place] 00 twice Medical daily Branch topiramate 2022-0 Yes [id number] Take 2 [facility] 25 mg 9-01 tablets by [facility] tablet 00:00: mouth [place] 00 twice Medical daily Branch topiramate 2022-0 Yes [id number] Take 2 [facility] 25 mg 9-01 tablets by [facility] tablet 00:00: mouth 00 twice Medical daily Branch topiramate 2022-0 Yes [id number] Take 2 [facility] 25 mg 9-01 tablets by [facility] tablet 00:00: mouth 00 twice Medical daily Branch topiramate 2022-0 Yes [id number] Take 2 [facility] 25 mg 9-01 tablets by [facility] tablet 00:00: mouth 00 twice Medical daily Branch topiramate 2022-0 Yes [id number] Take 2 [facility] 25 mg 9-01 tablets by [facility] tablet 00:00: mouth 00 twice Medical daily Branch topiramate 2022-0 Yes [id number] Take 2 [facility] 25 mg 9-01 tablets by [facility] tablet 00:00: mouth 00 twice Medical daily Branch topiramate 2-0 Yes [id number] Take 2 [facility] 25 mg 9-01 tablets by [facility] tablet 00:00: mouth 00 twice Medical daily Branch topiramate 2022-0 2022- No [id number] Take 2 [facility] 25 mg 9-01 09-22 tablets by [facility] tablet 00:00: 00:00 mouth [place] 00 :00 twice Medical daily Branch topiramate 2022-0 2022- No [id number] Take 2 [facility] 25 mg 9-01 09-22 tablets by [facility] tablet 00:00: 00:00 mouth [place] 00 :00 twice Medical daily Branch topiramate 2022-0 2022- No [id number] Take 2 [facility] 25 mg 9-01 09-22 tablets by [facility] tablet 00:00: 00:00 mouth [place] 00 :00 twice Medical daily Branch methocarbam 2021-0 Yes [id number] 500mg Take 1 [facility] oL 500 mg 8-11 tablet by [facility] o f tablet 00:00: mouth (four) Medical times Branch daily as needed for Pain (scale 7-10). methocarbam 2021-0 Yes [id number] 500mg Take 1 [facility] oL 500 mg 8-11 tablet by [facility] o f tablet 00:00: mouth (four) Medical times Branch daily as needed for Pain (scale 7-10). methocarbam 2021-0 Yes [id number] 500mg Take 1 [facility] oL 500 mg 8-11 tablet by [facility] f tablet 00:00: mouth (four) Medical times Branch daily as needed for Pain (scale 7-10). methocarbam 2-0 Yes [id number] 500mg Take 1 [facility] oL 500 mg 8-11 tablet by [facility] f tablet 00:00: mouth (four) Medical times Branch daily as needed for Pain (scale 7-10). methocarbam 2-0 Yes [id number] 500mg Take 1 [facility] oL 500 mg 8-11 tablet by [facility] f tablet 00:00: mouth (four) Medical times Branch daily as needed for Pain (scale 7-10). methocarbam 2-0 Yes [id number] 500mg Take 1 [facility] oL 500 mg 8-11 tablet by [facility] f tablet 00:00: mouth (four) Medical times Branch daily as needed for Pain (scale 7-10). methocarbam 2021-0 Yes [id number] 500mg Take 1 [facility] oL 500 mg 8-11 tablet by [facility] f tablet 00:00: mouth (four) Medical times Branch daily as needed for Pain (scale 7-10). methocarbam 2021-0 Yes [id number] 500mg Take 1 [facility] oL 500 mg 8-11 tablet by [facility] f tablet 00:00: mouth (four) Medical times Branch daily as needed for Pain (scale 7-10). methocarbam 2021-0 Yes [id number] 500mg Take 1 [facility] oL 500 mg 8-11 tablet by [facility] f tablet 00:00: mouth (four) Medical times Branch daily as needed for Pain (scale 7-10). methocarbam 2021-0 Yes [id number] 500mg Take 1 [facility] oL 500 mg 8-11 tablet by [facility] f tablet 00:00: mouth (four) Medical times Branch daily as needed for Pain (scale 7-10). methocarbam 2-0 Yes [id number] 500mg Take 1 [facility] oL 500 mg 8-11 tablet by [facility] f tablet 00:00: mouth (four) Medical times Branch daily as needed for Pain (scale 7-10). methocarbam 2-0 Yes [id number] 500mg Take 1 [facility] oL 500 mg 8-11 tablet by [facility] o f tablet 00:00: mouth (four) Medical times Branch daily as needed for Pain (scale 7-10). methocarbam 2022-0 Yes [id number] 500mg Take 1 [facility] oL 500 mg 8-11 tablet by [facility] o f tablet 00:00: mouth (four) Medical times Branch daily as needed for Pain (scale 7-10). methocarbam 2-0 Yes [id number] 500mg Take 1 [facility] oL 500 mg 8-11 tablet by [facility] o f tablet 00:00: mouth (four) Medical times Branch daily as needed for Pain (scale 7-10). methocarbam 2-0 Yes [id number] 500mg Take 1 [facility] oL 500 mg 8-11 tablet by [facility] o f tablet 00:00: mouth (four) Medical times Branch daily as needed for Pain (scale 7-10). methocarbam 2-0 Yes [id number] 500mg Take 1 [facility] oL 500 mg 8-11 tablet by [facility] o f tablet 00:00: mouth (four) Medical times Branch daily as needed for Pain (scale 7-10). methocarbam 2-0 Yes [id number] 500mg Take 1 [facility] oL 500 mg 8-11 tablet by [facility] o f tablet 00:00: mouth (four) Medical times Branch daily as needed for Pain (scale 7-10). methocarbam 2-0 Yes [id number] 500mg Take 1 [facility] oL 500 mg 8-11 tablet by [facility] o f tablet 00:00: mouth (four) Medical times Branch daily as needed for Pain (scale 7-10). methocarbam 2-0 Yes [id number] 500mg Take 1 [facility] oL 500 mg 8-11 tablet by [facility] o f tablet 00:00: mouth (four) Medical times Branch daily as needed for Pain (scale 7-10). methocarbam 2-0 Yes [id number] 500mg Take 1 [facility] oL 500 mg 8-11 tablet by [facility] o f tablet 00:00: mouth (four) Medical times Branch daily as needed for Pain (scale 7-10). methocarbam 2022-0 Yes [id number] 500mg Take 1 [facility] oL 500 mg 8-11 tablet by [facility] o f tablet 00:00: mouth (four) Medical times Branch daily as needed for Pain (scale 7-10). methocarbam 2022-0 Yes [id number] 500mg Take 1 [facility] oL 500 mg 8-11 tablet by [facility] o f tablet 00:00: mouth (four) Medical times Branch daily as needed for Pain (scale 7-10). methocarbam 2-0 Yes [id number] 500mg Take 1 [facility] oL 500 mg 8-11 tablet by [facility] o f tablet 00:00: mouth (four) Medical times Branch daily as needed for Pain (scale 7-10). methocarbam 2-0 Yes [id number] 500mg Take 1 [facility] oL 500 mg 8-11 tablet by [facility] o f tablet 00:00: mouth (four) Medical times Branch daily as needed for Pain (scale 7-10). methocarbam 2-0 Yes [id number] 500mg Take 1 [facility] oL 500 mg 8-11 tablet by [facility] o f tablet 00:00: mouth (four) Medical times Branch daily as needed for Pain (scale 7-10). methocarbam 2-0 Yes [id number] 500mg Take 1 [facility] oL 500 mg 8-11 tablet by [facility] o f tablet 00:00: mouth (four) Medical times Branch daily as needed for Pain (scale 7-10). methocarbam 2-0 Yes [id number] 500mg Take 1 [facility] oL 500 mg 8-11 tablet by [facility] o f tablet 00:00: mouth (four) Medical times Branch daily as needed for Pain (scale 7-10). methocarbam 2-0 Yes [id number] 500mg Take 1 [facility] oL 500 mg 8-11 tablet by [facility] f tablet 00:00: mouth (four) Medical times Branch daily as needed for Pain (scale 7-10). methocarbam 2-0 Yes [id number] 500mg Take 1 [facility] oL 500 mg 8-11 tablet by [facility] o f tablet 00:00: mouth (four) Medical times Branch daily as needed for Pain (scale 7-10). methocarbam 2022-0 Yes [id number] 500mg Take 1 [facility] oL 500 mg 8-11 tablet by [facility] o f tablet 00:00: mouth (four) Medical times Branch daily as needed for Pain (scale 7-10). methocarbam 2-0 Yes [id number] 500mg Take 1 [facility] oL 500 mg 8-11 tablet by [facility] o f tablet 00:00: mouth (four) Medical times Branch daily as needed for Pain (scale 7-10). methocarbam 2-0 Yes [id number] 500mg Take 1 [facility] oL 500 mg 8-11 tablet by [facility] o f tablet 00:00: mouth (four) Medical times Branch daily as needed for Pain (scale 7-10). methocarbam 2-0 Yes [id number] 500mg Take 1 [facility] oL 500 mg 8-11 tablet by [facility] o f tablet 00:00: mouth (four) Medical times Branch daily as needed for Pain (scale 7-10). methocarbam 2-0 Yes [id number] 500mg Take 1 [facility] oL 500 mg 8-11 tablet by [facility] o f tablet 00:00: mouth (four) Medical times Branch daily as needed for Pain (scale 7-10). methocarbam 2-0 Yes [id number] 500mg Take 1 [facility] oL 500 mg 8-11 tablet by [facility] o f tablet 00:00: mouth (four) Medical times Branch daily as needed for Pain (scale 7-10). methocarbam 2-0 Yes [id number] 500mg Take 1 [facility] oL 500 mg 8-11 tablet by [facility] o f tablet 00:00: mouth (four) Medical times Branch daily as needed for Pain (scale 7-10). methocarbam 2-0 Yes [id number] 500mg Take 1 [facility] oL 500 mg 8-11 tablet by [facility] o f tablet 00:00: mouth (four) Medical times Branch daily as needed for Pain (scale 7-10). methocarbam 2-0 Yes [id number] 500mg Take 1 [facility] oL 500 mg 8-11 tablet by [facility] o f tablet 00:00: mouth (four) Medical times Branch daily as needed for Pain (scale 7-10). methocarbam 2-0 Yes [id number] 500mg Take 1 [facility] o[facility] 500 mg 8-11 tablet by [facility] o f tablet 00:00: mouth (four) Medical times Branch daily as needed for Pain (scale 7-10). methocarbam 2-0 Yes [id number] 500mg Take 1 [facility] oL 500 mg 8-11 tablet by [facility] o f tablet 00:00: mouth (four) Medical times Branch daily as needed for Pain (scale 7-10). methocarbam 2-0 Yes [id number] 500mg Take 1 [facility] o[facility] 500 mg 8-11 tablet by [facility] o f tablet 00:00: mouth (four) Medical times Branch daily as needed for Pain (scale 7-10). methocarbam 2-0 Yes [id number] 500mg Take 1 [facility] o[facility] 500 mg 8-11 tablet by [facility] f tablet 00:00: mouth (four) Medical times Branch daily as needed for Pain (scale 7-10). methocarbam 2-0 Yes [id number] 500mg Take 1 [facility] o[facility] 500 mg 8-11 tablet by [facility] o f tablet 00:00: mouth (four) Medical times Branch daily as needed for Pain (scale 7-10). methocarbam 2-0 Yes [id number] 500mg Take 1 [facility] o[facility] 500 mg 8-11 tablet by [facility] o f tablet 00:00: mouth (four) Medical times Branch daily as needed for Pain (scale 7-10). methocarbam 2-0 Yes [id number] 500mg Take 1 [facility] o[facility] 500 mg 8-11 tablet by [facility] o f tablet 00:00: mouth (four) Medical times Branch daily as needed for Pain (scale 7-10). methocarbam 2-0 Yes [id number] 500mg Take 1 [facility] oL 500 mg 8-11 tablet by [facility] o f tablet 00:00: mouth (four) Medical times Branch daily as needed for Pain (scale 7-10). methocarbam 2-0 Yes [id number] 500mg Take 1 [facility] o[facility] 500 mg 8-11 tablet by [facility] o f tablet 00:00: mouth (four) Medical times Branch daily as needed for Pain (scale 7-10). methocarbam 2022-0 Yes [id number] 500mg Take 1 [facility] oL 500 mg 8-11 tablet by [facility] o f tablet 00:00: mouth (four) Medical times Branch daily as needed for Pain (scale 7-10). methocarbam 2022-0 Yes [id number] 500mg Take 1 [facility] o[facility] 500 mg 8-11 tablet by [facility] o f tablet 00:00: mouth (four) Medical times Branch daily as needed for Pain (scale 7-10). methocarbam 2022-0 Yes [id number] 500mg Take 1 [facility] oL 500 mg 8-11 tablet by [facility] o f tablet 00:00: mouth (four) Medical times Branch daily as needed for Pain (scale 7-10). methocarbam 2022-0 Yes [id number] 500mg Take 1 [facility] oL 500 mg 8-11 tablet by [facility] o f tablet 00:00: mouth (four) Medical times Branch daily as needed for Pain (scale 7-10). methocarbam 2022-0 Yes [id number] 500mg Take 1 [facility] oL 500 mg 8-11 tablet by [facility] o f tablet 00:00: mouth (four) Medical times Branch daily as needed for Pain (scale 7-10). methocarbam 2-0 Yes [id number] 500mg Take 1 [facility] oL 500 mg 8-11 tablet by [facility] o f tablet 00:00: mouth (four) Medical times Branch daily as needed for Pain (scale 7-10). methocarbam 2-0 Yes [id number] 500mg Take 1 [facility] oL 500 mg 8-11 tablet by [facility] o f tablet 00:00: mouth (four) Medical times Branch daily as needed for Pain (scale 7-10). methocarbam 2-0 Yes [id number] 500mg Take 1 [facility] oL 500 mg 8-11 tablet by [facility] o f tablet 00:00: mouth (four) Medical times Branch daily as needed for Pain (scale 7-10). methocarbam 2022-0 Yes [id number] 500mg Take 1 [facility] oL 500 mg 8-11 tablet by [facility] o f tablet 00:00: mouth (four) Medical times Branch daily as needed for Pain (scale 7-10). methocarbam 2022-0 Yes [id number] 500mg Take 1 [facility] oL 500 mg 8-11 tablet by [facility] o f tablet 00:00: mouth (four) Medical times Branch daily as needed for Pain (scale 7-10). methocarbam 2022-0 Yes [id number] 500mg Take 1 [facility] oL 500 mg 8-11 tablet by [facility] o f tablet 00:00: mouth 00 (four) Medical times Branch daily as needed for Pain (scale 7-10). methocarbam Yes [id number] 500mg Take 1 [facility] oL 500 mg 8-11 tablet by [facility] o f tablet 00:00: mouth 4 00 (four) Medical times Branch daily as needed for Pain (scale 7-10). methocarbam Yes [id number] 500mg Take 1 [facility] oL 500 mg 8-11 tablet by [facility] o f tablet 00:00: mouth 4 00 (four) Medical times Branch daily as needed for Pain (scale 7-10). methocarbam 2022- No [id number] 500mg Take 1 [facility] oL 500 mg 8-07 27-24 tablet by [facility] tablet 00:00: 00:00 mouth 4 00 :00 (four) Medical times Branch daily as needed for Pain (scale 7-10). methocarbam 2022- No [id number] 500mg Take 1 [facility] oL 500 mg 8-07 27-24 tablet by [facility] tablet 00:00: 00:00 mouth 4 00 : (four) Medical times Branch daily as needed for Pain (scale 7-10). methocarbam 2022- No [id number] 500mg Take 1 [facility] oL 500 mg 8-07 27-24 tablet by [facility] tablet 00:00: 00:00 mouth 4 00 :00 (four) Medical times Branch daily as needed for Pain (scale 7-10). methocarbam 2022- No [id number] 500mg Take 1 [facility] oL 500 mg 8-07 27-24 tablet by [facility] tablet 00:00: 00:00 mouth 4 00 :00 (four) Medical times Branch daily as needed for Pain (scale 7-10). methocarbam 3- No [id number] 500mg Take 1 [facility] oL 500 mg 8-07 27-24 tablet by [facility] tablet 00:00: 00:00 mouth 4 00 :00 (four) Medical times Branch daily as needed for Pain (scale 7-10). LOSARTAN 50 Yes [id number] Take 1 [facility] mg tablet 7-20 tablet by [facility] o f 00:00: mouth 00 twice Medical daily Branch DILTIAZEM 2021-0 Yes [id number] Take 1 [facility] [place] 120 mg 24 7-20 capsule by [facility] hr capsule 00:00: mouth twice Medical daily Branch LOSARTAN 50 2021-0 Yes [id number] Take 1 [facility] mg tablet 7-20 tablet by [facility] f 00:00: mouth twice Medical daily Branch DILTIAZEM 2021-0 Yes [id number] Take 1 [facility] 120 mg 24 7-20 capsule by [facility] hr capsule 00:00: mouth twice Medical daily Branch LOSARTAN 50 2021-0 Yes [id number] Take 1 [facility] mg tablet 7-20 tablet by [facility] o f 00:00: mouth twice Medical daily Branch DILTIAZEM 2021-0 Yes [id number] Take 1 [facility] [place] 120 mg 24 7-20 capsule by [facility] hr capsule 00:00: mouth twice Medical daily Branch LOSARTAN 50 2021-0 Yes [id number] Take 1 [facility] mg tablet 7-20 tablet by [facility] o f 00:00: mouth twice Medical daily Branch DILTIAZEM 2021-0 Yes [id number] Take 1 [facility] 120 mg 24 7-20 capsule by [facility] capsule 00:00: mouth twice Medical daily Branch LOSARTAN 50 2021-0 Yes [id number] Take 1 [facility] mg tablet 7-20 tablet by [facility] o f 00:00: mouth twice Medical daily Branch DILTIAZEM 2021-0 Yes [id number] Take 1 [facility] 120 mg 24 7-20 capsule by [facility] capsule 00:00: mouth twice Medical daily Branch LOSARTAN 50 2021-0 Yes [id number] Take 1 [facility] mg tablet 7-20 tablet by [facility] o f 00:00: mouth twice Medical daily Branch DILTIAZEM 2021-0 Yes [id number] Take 1 [facility] [place] 120 mg 24 7-20 capsule by [facility] capsule 00:00: mouth twice Medical daily Branch LOSARTAN 50 2021-0 Yes [id number] Take 1 [facility] mg tablet 7-20 tablet by [facility] o f 00:00: mouth twice Medical daily Branch DILTIAZEM 2021-0 Yes [id number] Take 1 [facility] [place] 120 mg 24 7-20 capsule by [facility] capsule 00:00: mouth twice Medical daily Branch LOSARTAN 50 2021-0 Yes [id number] Take 1 [facility] mg tablet 7-20 tablet by [facility] o f 00:00: mouth twice Medical daily Branch DILTIAZEM 2021-0 Yes [id number] Take 1 [facility] [place] 120 mg 24 7-20 capsule by [facility] hr capsule 00:00: mouth twice Medical daily Branch LOSARTAN 50 2021-0 Yes [id number] Take 1 [facility] mg tablet 7-20 tablet by [facility] o f 00:00: mouth twice Medical daily Branch DILTIAZEM 2021-0 Yes [id number] Take 1 [facility] 120 mg 24 7-20 capsule by [facility] capsule 00:00: mouth twice Medical daily Branch LOSARTAN 50 2021-0 Yes [id number] Take 1 [facility] mg tablet 7-20 tablet by [facility] o f 00:00: mouth twice Medical daily Branch DILTIAZEM 2021-0 Yes [id number] Take 1 [facility] [place] 120 mg 24 7-20 capsule by [facility] hr capsule 00:00: mouth twice Medical daily Branch LOSARTAN 50 2021-0 Yes [id number] Take 1 [facility] mg tablet 7-20 tablet by [facility] o f 00:00: mouth twice Medical daily Branch DILTIAZEM 2021-0 Yes [id number] Take 1 [facility] [place] 120 mg 24 7-20 capsule by [facility] capsule 00:00: mouth twice Medical daily Branch LOSARTAN 50 2021-0 Yes [id number] Take 1 [facility] mg tablet 7-20 tablet by [facility] o f 00:00: mouth twice Medical daily Branch DILTIAZEM 2021-0 Yes [id number] Take 1 [facility] 120 mg 24 7-20 capsule by [facility] hr capsule 00:00: mouth twice Medical daily Branch LOSARTAN 50 2021-0 Yes [id number] Take 1 [facility] mg tablet 7-20 tablet by [facility] o f 00:00: mouth twice Medical daily Branch DILTIAZEM 2021-0 Yes [id number] Take 1 [facility] [place] 120 mg 24 7-20 capsule by [facility] hr capsule 00:00: mouth twice Medical daily Branch LOSARTAN 50 2021-0 Yes [id number] Take 1 [facility] mg tablet 7-20 tablet by [facility] o f 00:00: mouth twice Medical daily Branch DILTIAZEM 2021-0 Yes [id number] Take 1 [facility] [place] 120 mg 24 7-20 capsule by [facility] hr capsule 00:00: mouth twice Medical daily Branch LOSARTAN 50 2021-0 Yes [id number] Take 1 [facility] mg tablet 7-20 tablet by [facility] o f 00:00: mouth twice Medical daily Branch DILTIAZEM 2021-0 Yes [id number] Take 1 [facility] [place] 120 mg 24 7-20 capsule by [facility] hr capsule 00:00: mouth twice Medical daily Branch LOSARTAN 50 2021-0 Yes [id number] Take 1 [facility] mg tablet 7-20 tablet by [facility] o f 00:00: mouth twice Medical daily Branch DILTIAZEM 2021-0 Yes [id number] Take 1 [facility] 120 mg 24 7-20 capsule by [facility] capsule 00:00: mouth twice Medical daily Branch LOSARTAN 50 2021-0 Yes [id number] Take 1 [facility] mg tablet 7-20 tablet by [facility] o f 00:00: mouth twice Medical daily Branch DILTIAZEM 2021-0 Yes [id number] Take 1 [facility] [place] 120 mg 24 7-20 capsule by [facility] hr capsule 00:00: mouth twice Medical daily Branch LOSARTAN 50 2021-0 Yes [id number] Take 1 [facility] mg tablet 7-20 tablet by [facility] o f 00:00: mouth twice Medical daily Branch DILTIAZEM 2021-0 Yes [id number] Take 1 [facility] [place] 120 mg 24 7-20 capsule by [facility] hr capsule 00:00: mouth twice Medical daily Branch LOSARTAN 50 2021-0 Yes [id number] Take 1 [facility] mg tablet 7-20 tablet by [facility] o f 00:00: mouth twice Medical daily Branch DILTIAZEM 2021-0 Yes [id number] Take 1 [facility] 120 mg 24 7-20 capsule by [facility] capsule 00:00: mouth twice Medical daily Branch LOSARTAN 50 2021-0 Yes [id number] Take 1 [facility] mg tablet 7-20 tablet by [facility] o f 00:00: mouth twice Medical daily Branch DILTIAZEM 2021-0 Yes [id number] Take 1 [facility] [place] 120 mg 24 7-20 capsule by [facility] capsule 00:00: mouth twice Medical daily Branch LOSARTAN 50 2021-0 Yes [id number] Take 1 [facility] mg tablet 7-20 tablet by [facility] o f 00:00: mouth twice Medical daily Branch DILTIAZEM 2021-0 Yes [id number] Take 1 [facility] [place] 120 mg 24 7-20 capsule by [facility] capsule 00:00: mouth twice Medical daily Branch LOSARTAN 50 2021-0 Yes [id number] Take 1 [facility] mg tablet 7-20 tablet by [facility] o f 00:00: mouth twice Medical daily Branch DILTIAZEM 2021-0 Yes [id number] Take 1 [facility] [place] 120 mg 24 7-20 capsule by [facility] hr capsule 00:00: mouth twice Medical daily Branch LOSARTAN 50 2021-0 Yes [id number] Take 1 [facility] mg tablet 7-20 tablet by [facility] o f 00:00: mouth twice Medical daily Branch DILTIAZEM 2021-0 Yes [id number] Take 1 [facility] 120 mg 24 7-20 capsule by [facility] hr capsule 00:00: mouth twice Medical daily Branch LOSARTAN 50 2021-0 Yes [id number] Take 1 [facility] mg tablet 7-20 tablet by [facility] o f 00:00: mouth twice Medical daily Branch DILTIAZEM 2021-0 Yes [id number] Take 1 [facility] 120 mg 24 7-20 capsule by [facility] hr capsule 00:00: mouth twice Medical daily Branch LOSARTAN 50 2021-0 Yes [id number] Take 1 [facility] mg tablet 7-20 tablet by [facility] o f 00:00: mouth twice Medical daily Branch DILTIAZEM 2021-0 Yes [id number] Take 1 [facility] [place] 120 mg 24 7-20 capsule by [facility] capsule 00:00: mouth twice Medical daily Branch LOSARTAN 50 2021-0 Yes [id number] Take 1 [facility] mg tablet 7-20 tablet by [facility] o f 00:00: mouth twice Medical daily Branch DILTIAZEM 2021-0 Yes [id number] Take 1 [facility] 120 mg 24 7-20 capsule by [facility] capsule 00:00: mouth twice Medical daily Branch LOSARTAN 50 2021-0 Yes [id number] Take 1 [facility] mg tablet 7-20 tablet by [facility] o f 00:00: mouth twice Medical daily Branch DILTIAZEM 2021-0 Yes [id number] Take 1 [facility] 120 mg 24 7-20 capsule by [facility] capsule 00:00: mouth 00 twice Medical daily Branch LOSARTAN 50 2021-0 Yes [id number] Take 1 [facility] mg tablet 7-20 tablet by [facility] o f 00:00: mouth twice Medical daily Branch DILTIAZEM 2021-0 Yes [id number] Take 1 [facility] 120 mg 24 7-20 capsule by [facility] hr capsule 00:00: mouth twice Medical daily Branch LOSARTAN 50 2021-0 Yes [id number] Take 1 [facility] mg tablet 7-20 tablet by [facility] o f 00:00: mouth twice Medical daily Branch DILTIAZEM 2021-0 Yes [id number] Take 1 [facility] 120 mg 24 7-20 capsule by [facility] hr capsule 00:00: mouth twice Medical daily Branch LOSARTAN 50 2021-0 Yes [id number] Take 1 [facility] mg tablet 7-20 tablet by [facility] o f 00:00: mouth twice Medical daily Branch DILTIAZEM 2021-0 Yes [id number] Take 1 [facility] 120 mg 24 7-20 capsule by [facility] capsule 00:00: mouth 00 twice Medical daily Branch LOSARTAN 50 2021-0 Yes [id number] Take 1 [facility] mg tablet 7-20 tablet by [facility] o f 00:00: mouth twice Medical daily Branch DILTIAZEM 2021-0 Yes [id number] Take 1 [facility] 120 mg 24 7-20 capsule by [facility] capsule 00:00: mouth twice Medical daily Branch LOSARTAN 50 2021-0 Yes [id number] Take 1 [facility] mg tablet 7-20 tablet by [facility] o f 00:00: mouth twice Medical daily Branch DILTIAZEM 2021-0 Yes [id number] Take 1 [facility] 120 mg 24 7-20 capsule by [facility] hr capsule 00:00: mouth 00 twice Medical daily Branch LOSARTAN 50 2021-0 2021- No [id number] Take 1 [facility] mg tablet 7-20 10-13 tablet by [facility] of 00:00: 00:00 mouth [place] 00 :00 twice Medical daily Branch DILTIAZEM 2021-0 2021- No [id number] Take 1 [facility] 120 mg 24 7-20 10-13 capsule by [facility] hr capsule 00:00: 00:00 mouth [place] 00 :00 twice Medical daily Branch methocarbam 2021-0 Yes [id number] 500mg Take 1 [facility] oL 500 mg 7-02 tablet by [facility] o f tablet 00:00: mouth 4 [place] 00 (four) Medical times Branch daily. methocarbam 2021-0 Yes [id number] 500mg Take 1 [facility] oL 500 mg 7-02 tablet by [facility] o f tablet 00:00: mouth 4 [place] 00 (four) Medical times Branch daily. methocarbam 2021-0 Yes [id number] 500mg Take 1 [facility] oL 500 mg 7-02 tablet by [facility] o f tablet 00:00: mouth 4 [place] 00 (four) Medical times Branch daily. methocarbam 2021-0 Yes [id number] 500mg Take 1 [facility] oL 500 mg 7-02 tablet by [facility] o f tablet 00:00: mouth 4 [place] 00 (four) Medical times Branch daily. methocarbam 2021-0 Yes [id number] 500mg Take 1 [facility] oL 500 mg 7-02 tablet by [facility] o f tablet 00:00: mouth 4 [place] 00 (four) Medical times Branch daily. methocarbam 2021-0 2021- No [id number] 500mg Take 1 [facility] oL 500 mg 7-02 08-11 tablet by [facility] tablet 00:00: 00:00 mouth 4 [place] 00 :00 (four) Medical times Branch daily. SUMATRIPTAN 2021-0 Yes [id number] TAKE 1 [facility] 50 mg 6-17 TABLET BY [facility] of tablet 00:00: MOUTH [place] 00 NEEDED FOR Medical MIGRAINE Branch HEADACHE (MAY REPEAT IN TWO HOURS) SUMATRIPTAN 2-0 Yes [id number] TAKE 1 [facility] 50 mg 6-17 TABLET BY [facility] of tablet 00:00: MOUTH [place] 00 NEEDED FOR Medical MIGRAINE Branch HEADACHE (MAY REPEAT IN TWO HOURS) SUMATRIPTAN 2-0 Yes [id number] TAKE 1 [facility] 50 mg 6-17 TABLET BY [facility] of tablet 00:00: MOUTH [place] 00 NEEDED FOR Medical MIGRAINE Branch HEADACHE (MAY REPEAT IN TWO HOURS) SUMATRIPTAN 2022-0 Yes [id number] TAKE 1 [facility] 50 mg 6-17 TABLET BY [facility] of tablet 00:00: MOUTH [place] 00 NEEDED FOR Medical MIGRAINE Branch HEADACHE (MAY REPEAT IN TWO HOURS) SUMATRIPTAN 2022-0 Yes [id number] TAKE 1 [facility] 50 mg 6-17 TABLET BY [facility] of tablet 00:00: MOUTH [place] 00 NEEDED FOR Medical MIGRAINE Branch HEADACHE (MAY REPEAT IN TWO HOURS) SUMATRIPTAN 2022-0 Yes [id number] TAKE 1 [facility] 50 mg 6-17 TABLET BY [facility] of tablet 00:00: MOUTH [place] 00 NEEDED FOR Medical MIGRAINE Branch HEADACHE (MAY REPEAT IN TWO HOURS) SUMATRIPTAN 2022-0 Yes [id number] TAKE 1 [facility] 50 mg 6-17 TABLET BY [facility] of tablet 00:00: MOUTH [place] 00 NEEDED FOR Medical MIGRAINE Branch HEADACHE (MAY REPEAT IN TWO HOURS) SUMATRIPTAN 2022-0 Yes [id number] TAKE 1 [facility] 50 mg 6-17 TABLET BY [facility] of tablet 00:00: MOUTH [place] 00 NEEDED FOR Medical MIGRAINE Branch HEADACHE (MAY REPEAT IN TWO HOURS) SUMATRIPTAN 2022-0 Yes [id number] TAKE 1 [facility] 50 mg 6-17 TABLET BY [facility] of tablet 00:00: MOUTH [place] 00 NEEDED FOR Medical MIGRAINE Branch HEADACHE (MAY REPEAT IN TWO HOURS) SUMATRIPTAN 2022-0 Yes [id number] TAKE 1 [facility] 50 mg 6-17 TABLET BY [facility] of tablet 00:00: MOUTH [place] 00 NEEDED FOR Medical MIGRAINE Branch HEADACHE (MAY REPEAT IN TWO HOURS) SUMATRIPTAN 2022-0 Yes [id number] TAKE 1 [facility] 50 mg 6-17 TABLET BY [facility] of tablet 00:00: MOUTH [place] 00 NEEDED FOR Medical MIGRAINE Branch HEADACHE (MAY REPEAT IN TWO HOURS) SUMATRIPTAN 2022-0 Yes [id number] TAKE 1 [facility] 50 mg 6-17 TABLET BY [facility] of tablet 00:00: MOUTH [place] 00 NEEDED FOR Medical MIGRAINE Branch HEADACHE (MAY REPEAT IN TWO HOURS) SUMATRIPTAN 2022-0 Yes [id number] TAKE 1 [facility] 50 mg 6-17 TABLET BY [facility] of tablet 00:00: MOUTH [place] 00 NEEDED FOR Medical MIGRAINE Branch HEADACHE (MAY REPEAT IN TWO HOURS) SUMATRIPTAN 2022-0 Yes [id number] TAKE 1 [facility] 50 mg 6-17 TABLET BY [facility] of tablet 00:00: MOUTH [place] 00 NEEDED FOR Medical MIGRAINE Branch HEADACHE (MAY REPEAT IN TWO HOURS) SUMATRIPTAN 2022-0 Yes [id number] TAKE 1 [facility] 50 mg 6-17 TABLET BY [facility] of tablet 00:00: MOUTH [place] 00 NEEDED FOR Medical MIGRAINE Branch HEADACHE (MAY REPEAT IN TWO HOURS) SUMATRIPTAN 2022-0 Yes [id number] TAKE 1 [facility] 50 mg 6-17 TABLET BY [facility] of tablet 00:00: MOUTH [place] 00 NEEDED FOR Medical MIGRAINE Branch HEADACHE (MAY REPEAT IN TWO HOURS) SUMATRIPTAN 0 Yes [id number] TAKE 1 [facility] 50 mg 6-17 TABLET BY [facility] of tablet 00:00: MOUTH [place] 00 NEEDED FOR Medical MIGRAINE Branch HEADACHE (MAY REPEAT IN TWO HOURS) SUMATRIPTAN 2021-0 2021- No [id number] TAKE 1 [facility] 50 mg 6-17 -06 TABLET BY [facility] tablet 00:00: 00:00 MOUTH [place] 00 :00 NEEDED FOR Medical MIGRAINE Branch HEADACHE (MAY REPEAT IN TWO HOURS) SUMATRIPTAN 2021-0 2021- No [id number] TAKE 1 [facility] 50 mg 6-17 09-06 TABLET BY [facility] of tablet 00:00: 00:00 MOUTH [place] 00 :00 NEEDED FOR Medical MIGRAINE Branch HEADACHE (MAY REPEAT IN TWO HOURS) fexofenadin 0 Yes [id number] 180mg Take 1 [facility] e (LUIS 6-13 tablet by [facility] of ALLERGY) 00:00: mouth [place] 180 mg 00 daily. Medical tablet Branch fexofenadin Yes [id number] 180mg Take 1 [facility] e (LUIS 6-13 tablet by [facility]y of ALLERGY) 00:00: mouth [place] 180 mg 00 daily. Medical tablet Branch fexofenadin Yes [id number] 180mg Take 1 [facility] e (LUIS 6-13 tablet by [facility]y of ALLERGY) 00:00: mouth [place] 180 mg 00 daily. Medical tablet Branch fexofenadin 0 Yes [id number] 180mg Take 1 [facility] e (LUIS 6-13 tablet by [facility]y of ALLERGY) 00:00: mouth [place] 180 mg 00 daily. Medical tablet Branch fexofenadin 0 Yes [id number] 180mg Take 1 [facility] e (LUIS 6-13 tablet by ity of ALLERGY) 00:00: mouth [place] 180 mg 00 daily. Medical tablet Branch fexofenadin 0 Yes [id number] 180mg Take 1 [facility] e (LUIS 6-13 tablet by ity of ALLERGY) 00:00: mouth [place] 180 mg 00 daily. Medical tablet Branch fexofenadin 0 Yes [id number] 180mg Take 1 [facility] e (LUIS 6-13 tablet by ity of ALLERGY) 00:00: mouth [place] 180 mg 00 daily. Medical tablet Branch fexofenadin 0 Yes [id number] 180mg Take 1 [facility] e (LUIS 6-13 tablet by ity of ALLERGY) 00:00: mouth [place] 180 mg 00 daily. Medical tablet Branch fexofenadin Yes [id number] 180mg Take 1 [facility] e (LUIS 6-13 tablet by ity of ALLERGY) 00:00: mouth [place] 180 mg 00 daily. Medical tablet Branch fexofenadin Yes [id number] 180mg Take 1 [facility] e (LUIS 6-13 tablet by ity of ALLERGY) 00:00: mouth [place] 180 mg 00 daily. Medical tablet Branch fexofenadin Yes [id number] 180mg Take 1 [facility] e (LUIS 6-13 tablet by ity of ALLERGY) 00:00: mouth [place] 180 mg 00 daily. Medical tablet Branch fexofenadin Yes [id number] 180mg Take 1 [facility] e (LUIS 6-13 tablet by ity of ALLERGY) 00:00: mouth [place] 180 mg 00 daily. Medical tablet Branch fexofenadin Yes [id number] 180mg Take 1 [facility] e (LUIS 6-13 tablet by ity of ALLERGY) 00:00: mouth [place] 180 mg 00 daily. Medical tablet Branch fexofenadin Yes [id number] 180mg Take 1 [facility] e (LUIS 6-13 tablet by ity of ALLERGY) 00:00: mouth [place] 180 mg 00 daily. Medical tablet Branch fexofenadin Yes [id number] 180mg Take 1 [facility] e (LUIS 6-13 tablet by ity of ALLERGY) 00:00: mouth [place] 180 mg 00 daily. Medical tablet Branch fexofenadin Yes [id number] 180mg Take 1 [facility] e (LUIS 6-13 tablet by ity of ALLERGY) 00:00: mouth [place] 180 mg 00 daily. Medical tablet Branch fexofenadin Yes [id number] 180mg Take 1 [facility] e (LUIS 6-13 tablet by ity of ALLERGY) 00:00: mouth [place] 180 mg 00 daily. Medical tablet Branch fexofenadin 2022-0 Yes [id number] 180mg Take 1 [facility] e (LUIS 6-13 tablet by ity of ALLERGY) 00:00: mouth [place] 180 mg 00 daily. Medical tablet Branch fexofenadin Yes [id number] 180mg Take 1 [facility] e (LUIS 6-13 tablet by ity of ALLERGY) 00:00: mouth [place] 180 mg 00 daily. Medical tablet Branch fexofenadin Yes [id number] 180mg Take 1 [facility] e (LUIS 6-13 tablet by ity of ALLERGY) 00:00: mouth [place] 180 mg 00 daily. Medical tablet Branch fexofenadin Yes [id number] 180mg Take 1 [facility] e (LUIS 6-13 tablet by ity of ALLERGY) 00:00: mouth [place] 180 mg 00 daily. Medical tablet Branch fexofenadin Yes [id number] 180mg Take 1 [facility] e (LUIS 6-13 tablet by ity of ALLERGY) 00:00: mouth [place] 180 mg 00 daily. Medical tablet Branch fexofenadin Yes [id number] 180mg Take 1 [facility] e (LUIS 6-13 tablet by ity of ALLERGY) 00:00: mouth [place] 180 mg 00 daily. Medical tablet Branch fexofenadin Yes [id number] 180mg Take 1 [facility] e (LUIS 6-13 tablet by ity of ALLERGY) 00:00: mouth [place] 180 mg 00 daily. Medical tablet Branch fexofenadin Yes [id number] 180mg Take 1 [facility] e (LUIS 6-13 tablet by ity of ALLERGY) 00:00: mouth [place] 180 mg 00 daily. Medical tablet Branch fexofenadin Yes [id number] 180mg Take 1 [facility] e (LUIS 6-13 tablet by ity of ALLERGY) 00:00: mouth [place] 180 mg 00 daily. Medical tablet Branch fexofenadin 2021- Yes [id number] 180mg Take 1 [facility] e (LUIS 6-13 tablet by ity of ALLERGY) 00:00: mouth [place] 180 mg 00 daily. Medical tablet Branch fexofenadin Yes [id number] 180mg Take 1 [facility] e (LUIS 6-13 tablet by ity of ALLERGY) 00:00: mouth [place] 180 mg 00 daily. Medical tablet Branch fexofenadin Yes [id number] 180mg Take 1 [facility] e (LUIS 6-13 tablet by ity of ALLERGY) 00:00: mouth [place] 180 mg 00 daily. Medical tablet Branch fexofenadin Yes [id number] 180mg Take 1 [facility] e (LUIS 6-13 tablet by ity of ALLERGY) 00:00: mouth [place] 180 mg 00 daily. Medical tablet Branch fexofenadin 0 Yes [id number] 180mg Take 1 [facility] e (LUIS 6-13 tablet by ity of ALLERGY) 00:00: mouth [place] 180 mg 00 daily. Medical tablet Branch fexofenadin Yes [id number] 180mg Take 1 [facility] e (LUIS 6-13 tablet by ity of ALLERGY) 00:00: mouth [place] 180 mg 00 daily. Medical tablet Branch fexofenadin Yes [id number] 180mg Take 1 [facility] e (LUIS 6-13 tablet by ity of ALLERGY) 00:00: mouth [place] 180 mg 00 daily. Medical tablet Branch fexofenadin Yes [id number] 180mg Take 1 [facility] e (LUIS 6-13 tablet by ity of ALLERGY) 00:00: mouth [place] 180 mg 00 daily. Medical tablet Branch fexofenadin Yes [id number] 180mg Take 1 [facility] e (LUIS 6-13 tablet by ity of ALLERGY) 00:00: mouth [place] 180 mg 00 daily. Medical tablet Branch fexofenadin Yes [id number] 180mg Take 1 [facility] e (LUIS 6-13 tablet by ity of ALLERGY) 00:00: mouth [place] 180 mg 00 daily. Medical tablet Branch fexofenadin Yes [id number] 180mg Take 1 [facility] e (LUIS 6-13 tablet by ity of ALLERGY) 00:00: mouth [place] 180 mg 00 daily. Medical tablet Branch fexofenadin Yes [id number] 180mg Take 1 [facility] e (LUIS 6-13 tablet by ity of ALLERGY) 00:00: mouth [place] 180 mg 00 daily. Medical tablet Branch fexofenadin Yes [id number] 180mg Take 1 [facility] e (LUIS 6-13 tablet by ity of ALLERGY) 00:00: mouth [place] 180 mg 00 daily. Medical tablet Branch fexofenadin 0 Yes [id number] 180mg Take 1 [facility] e (LUIS 6-13 tablet by ity of ALLERGY) 00:00: mouth [place] 180 mg 00 daily. Medical tablet Branch fexofenadin Yes [id number] 180mg Take 1 [facility] e (LUIS 6-13 tablet by [facility]y of ALLERGY) 00:00: mouth [place] 180 mg 00 daily. Medical tablet Branch fexofenadin 0 Yes [id number] 180mg Take 1 [facility] e (LUIS 6-13 tablet by ity of ALLERGY) 00:00: mouth [place] 180 mg 00 daily. Medical tablet Branch fexofenadin Yes [id number] 180mg Take 1 [facility] e (LUIS 6-13 tablet by ity of ALLERGY) 00:00: mouth [place] 180 mg 00 daily. Medical tablet Branch fexofenadin Yes [id number] 180mg Take 1 [facility] e (LUIS 6-13 tablet by ity of ALLERGY) 00:00: mouth [place] 180 mg 00 daily. Medical tablet Branch fexofenadin Yes [id number] 180mg Take 1 [facility] e (LUIS 6-13 tablet by ity of ALLERGY) 00:00: mouth [place] 180 mg 00 daily. Medical tablet Branch fexofenadin Yes [id number] 180mg Take 1 [facility] e (LUIS 6-13 tablet by ity of ALLERGY) 00:00: mouth [place] 180 mg 00 daily. Medical tablet Branch fexofenadin Yes [id number] 180mg Take 1 [facility] e (LUIS 6-13 tablet by ity of ALLERGY) 00:00: mouth [place] 180 mg 00 daily. Medical tablet Branch fexofenadin Yes [id number] 180mg Take 1 [facility] e (LUIS 6-13 tablet by ity of ALLERGY) 00:00: mouth [place] 180 mg 00 daily. Medical tablet Branch fexofenadin Yes [id number] 180mg Take 1 [facility] e (LUIS 6-13 tablet by ity of ALLERGY) 00:00: mouth [place] 180 mg 00 daily. Medical tablet Branch fexofenadin Yes [id number] 180mg Take 1 [facility] e (LUIS 6-13 tablet by ity of ALLERGY) 00:00: mouth [place] 180 mg 00 daily. Medical tablet Branch fexofenadin 2021-0 Yes [id number] 180mg Take 1 [facility] e (LUIS 6-13 tablet by ity of ALLERGY) 00:00: mouth [place] 180 mg 00 daily. Medical tablet Branch fexofenadin 0 Yes [id number] 180mg Take 1 [facility] e (LUIS 6-13 tablet by ity of ALLERGY) 00:00: mouth [place] 180 mg 00 daily. Medical tablet Branch fexofenadin 0 Yes [id number] 180mg Take 1 [facility] e (LUIS 6-13 tablet by ity of ALLERGY) 00:00: mouth [place] 180 mg 00 daily. Medical tablet Branch fexofenadin 0 Yes [id number] 180mg Take 1 [facility] e (LUIS 6-13 tablet by ity of ALLERGY) 00:00: mouth [place] 180 mg 00 daily. Medical tablet Branch fexofenadin Yes [id number] 180mg Take 1 [facility] e (LUIS 6-13 tablet by ity of ALLERGY) 00:00: mouth [place] 180 mg 00 daily. Medical tablet Branch fexofenadin Yes [id number] 180mg Take 1 [facility] e (LUIS 6-13 tablet by ity of ALLERGY) 00:00: mouth [place] 180 mg 00 daily. Medical tablet Branch fexofenadin 0 Yes [id number] 180mg Take 1 [facility] e (LUIS 6-13 tablet by ity of ALLERGY) 00:00: mouth [place] 180 mg 00 daily. Medical tablet Branch fexofenadin 0 Yes [id number] 180mg Take 1 [facility] e (LUIS 6-13 tablet by ity of ALLERGY) 00:00: mouth [place] 180 mg 00 daily. Medical tablet Branch fexofenadin 0 Yes [id number] 180mg Take 1 [facility] e (LUIS 6-13 tablet by ity of ALLERGY) 00:00: mouth [place] 180 mg 00 daily. Medical tablet Branch fexofenadin 0 Yes [id number] 180mg Take 1 [facility] e (LUIS 6-13 tablet by ity of ALLERGY) 00:00: mouth [place] 180 mg 00 daily. Medical tablet Branch fexofenadin 2021-0 Yes [id number] 180mg Take 1 [facility] e (LUIS 6-13 tablet by ity of ALLERGY) 00:00: mouth [place] 180 mg 00 daily. Medical tablet Branch fexofenadin 0 Yes [id number] 180mg Take 1 [facility] e (LUIS 6-13 tablet by ity of ALLERGY) 00:00: mouth [place] 180 mg 00 daily. Medical tablet Branch fexofenadin 0 Yes [id number] 180mg Take 1 [facility] e (LUIS 6-13 tablet by ity of ALLERGY) 00:00: mouth [place] 180 mg 00 daily. Medical tablet Branch fexofenadin 0 Yes [id number] 180mg Take 1 [facility] e (LUIS 6-13 tablet by ity of ALLERGY) 00:00: mouth [place] 180 mg 00 daily. Medical tablet Branch fexofenadin Yes [id number] 180mg Take 1 [facility] e (LUIS 6-13 tablet by ity of ALLERGY) 00:00: mouth [place] 180 mg 00 daily. Medical tablet Branch fexofenadin Yes [id number] 180mg Take 1 [facility] e (LUIS 6-13 tablet by ity of ALLERGY) 00:00: mouth [place] 180 mg 00 daily. Medical tablet Branch fexofenadin Yes [id number] 180mg Take 1 [facility] e (LUIS 6-13 tablet by ity of ALLERGY) 00:00: mouth [place] 180 mg 00 daily. Medical tablet Branch fexofenadin Yes [id number] 180mg Take 1 [facility] e (LUIS 6-13 tablet by ity of ALLERGY) 00:00: mouth [place] 180 mg 00 daily. Medical tablet Branch fexofenadin 0 Yes [id number] 180mg Take 1 [facility] e (LUIS 6-13 tablet by ity of ALLERGY) 00:00: mouth [place] 180 mg 00 daily. Medical tablet Branch fexofenadin 0 Yes [id number] 180mg Take 1 [facility] e (LUIS 6-13 tablet by ity of ALLERGY) 00:00: mouth [place] 180 mg 00 daily. Medical tablet Branch fexofenadin 0 Yes [id number] 180mg Take 1 [facility] e (LUIS 6-13 tablet by ity of ALLERGY) 00:00: mouth [place] 180 mg 00 daily. Medical tablet Branch fexofenadin 0 Yes [id number] 180mg Take 1 [facility] e (LUIS 6-13 tablet by ity of ALLERGY) 00:00: mouth [place] 180 mg 00 daily. Medical tablet Branch fexofenadin 3- No [id number] 180mg Take 1 [facility] e (LUIS 03-08 tablet by ity of ALLERGY) 00:00: 00:00 mouth [place] 180 mg 00 :00 daily. Medical tablet Branch fexofenadin 3- No [id number] 180mg Take 1 [facility] e (LUIS 03-08 tablet by ity of ALLERGY) 00:00: 00:00 mouth [place] 180 mg 00 :00 daily. Medical tablet Branch fexofenadin 2022- No [id number] 180mg Take 1 [facility] e (LUIS 03-08 tablet by ity of ALLERGY) 00:00: 00:00 mouth [place] 180 mg 00 :00 daily. Medical tablet Branch fexofenadin 2022- No [id number] 180mg Take 1 [facility] e (LUIS 03-08 tablet by ity of ALLERGY) 00:00: 00:00 mouth [place] 180 mg 00 :00 daily. Medical tablet Branch fexofenadin 2022- No [id number] 180mg Take 1 [facility] e (LUIS 03-08 tablet by ity of ALLERGY) 00:00: 00:00 mouth [place] 180 mg 00 :00 daily. Medical tablet Branch rosuvastati Yes [id number] 10mg Take 1 [facility] n 10 mg 6-08 tablet by [facility] of tablet 00:00: mouth at [place] [address] bedtime. Medical Branch rosuvastati Yes [id number] 10mg Take 1 [facility] n 10 mg 6-08 tablet by [facility] of tablet 00:00: mouth at [place] [address] bedtime. Medical Branch rosuvastati Yes [id number] 10mg Take 1 [facility] n 10 mg 6-08 tablet by [facility] of tablet 00:00: mouth at [place] 00 bedtime. Medical Branch rosuvastati Yes [id number] 10mg Take 1 [facility] n 10 mg 6-08 tablet by ity of tablet 00:00: mouth at [place] [address] bedtime. Medical Branch rosuvastati Yes [id number] 10mg Take 1 [facility] n 10 mg 6-08 tablet by ity of tablet 00:00: mouth at [place] [address] bedtime. Medical Branch rosuvastati Yes [id number] 10mg Take 1 [facility] n 10 mg 6-08 tablet by ity of tablet 00:00: mouth at [place] [address] bedtime. [facility] Branch rosuvastati Yes [id number] 10mg Take 1 [facility] n 10 mg 6-08 tablet by ity of tablet 00:00: mouth at [place] [address] bedtime. [facility] Branch rosuvastati 2021-0 Yes [id number] 10mg Take 1 [facility] n 10 mg 6-08 tablet by ity of tablet 00:00: mouth at [place] [address] bedtime. [facility] Branch rosuvastati Yes [id number] 10mg Take 1 [facility] n 10 mg 6-08 tablet by ity of tablet 00:00: mouth at [place] [address] bedtime. [facility] Branch rosuvastati Yes [id number] 10mg Take 1 [facility] n 10 mg 6-08 tablet by ity of tablet 00:00: mouth at [place] [address] bedtime. [facility] Branch rosuvastati Yes [id number] 10mg Take 1 [facility] n 10 mg 6-08 tablet by ity of tablet 00:00: mouth at [place] [address] bedtime. [facility] Branch rosuvastati Yes [id number] 10mg Take 1 [facility] n 10 mg 6-08 tablet by ity of tablet 00:00: mouth at [place] [address] bedtime. [facility] Branch rosuvastati Yes [id number] 10mg Take 1 [facility] n 10 mg 6-08 tablet by ity of tablet 00:00: mouth at [place] [address] bedtime. [facility] Branch rosuvastati 2021-0 Yes [id number] 10mg Take 1 [facility] n 10 mg 6-08 tablet by ity of tablet 00:00: mouth at [place] [address] bedtime. [facility] Branch rosuvastati 2021-0 Yes [id number] 10mg Take 1 [facility] n 10 mg 6-08 tablet by ity of tablet 00:00: mouth at [place] [address] bedtime. [facility] Branch rosuvastati 0 Yes [id number] 10mg Take 1 [facility] n 10 mg 6-08 tablet by ity of tablet 00:00: mouth at [place] [address] bedtime. [facility] Branch rosuvastati 2021-0 Yes [id number] 10mg Take 1 [facility] n 10 mg 6-08 tablet by ity of tablet 00:00: mouth at [place] bedtime. [facility] Branch rosuvastati 2021-0 Yes [id number] 10mg Take 1 [facility] n 10 mg 6-08 tablet by ity of tablet 00:00: mouth at [place] bedtime. [facility] Branch rosuvastati 2021-0 Yes [id number] 10mg Take 1 [facility] n 10 mg 6-08 tablet by ity of tablet 00:00: mouth at [place] bedtime. [facility] Branch rosuvastati 2021-0 Yes [id number] 10mg Take 1 [facility] n 10 mg 6-08 tablet by ity of tablet 00:00: mouth at [place] bedtime. [facility] rosuvastati 2021-0 Yes [id number] 10mg Take 1 [facility] n 10 mg 6-08 tablet by ity of tablet 00:00: mouth at [place] bedtime. [facility] rosuvastati 2021- Yes [id number] 10mg Take 1 [facility] n 10 mg 6-08 tablet by ity of tablet 00:00: mouth at [place] bedtime. [facility] rosuvastati 2021-0 Yes [id number] 10mg Take 1 [facility] n 10 mg 6-08 tablet by ity of tablet 00:00: mouth at [place] bedtime. [facility] rosuvastati 2021-0 Yes [id number] 10mg Take 1 [facility] n 10 mg 6-08 tablet by ity of tablet 00:00: mouth at [place] [address] bedtime. [facility] Branch rosuvastati 2021- Yes [id number] 10mg Take 1 [facility] n 10 mg 6-08 tablet by ity of tablet 00:00: mouth at [place] [address] bedtime. Medical Branch rosuvastati 2021-0 Yes [id number] 10mg Take 1 [facility] n 10 mg 6-08 tablet by ity of tablet 00:00: mouth at [place] bedtime. [facility] rosuvastati 2021-0 Yes [id number] 10mg Take 1 [facility] n 10 mg 6-08 tablet by ity of tablet 00:00: mouth at [place] [address] bedtime. Medical Branch rosuvastati 2021-0 Yes [id number] 10mg Take 1 [facility] n 10 mg 6-08 tablet by ity of tablet 00:00: mouth at [place] [address] bedtime. Medical Branch rosuvastati 2021-0 Yes [id number] 10mg Take 1 [facility] n 10 mg 6-08 tablet by ity of tablet 00:00: mouth at [place] [address] bedtime. Medical Branch rosuvastati Yes [id number] 10mg Take 1 [facility] n 10 mg 6-08 tablet by ity of tablet 00:00: mouth at [place] bedtime. Medical Branch rosuvastati Yes [id number] 10mg Take 1 [facility] n 10 mg 6-08 tablet by ity of tablet 00:00: mouth at [place] [address] bedtime. Medical Branch rosuvastati Yes [id number] 10mg Take 1 [facility] n 10 mg 6-08 tablet by ity of tablet 00:00: mouth at [place] [address] bedtime. Medical Branch rosuvastati Yes [id number] 10mg Take 1 [facility] n 10 mg 6-08 tablet by ity of tablet 00:00: mouth at [place] [address] bedtime. Medical Branch rosuvastati Yes [id number] 10mg Take 1 [facility] n 10 mg 6-08 tablet by ity of tablet 00:00: mouth at [place] [address] bedtime. Medical Branch rosuvastati Yes [id number] 10mg Take 1 [facility] n 10 mg 6-08 tablet by ity of tablet 00:00: mouth at [place] [address] bedtime. Medical Branch rosuvastati Yes [id number] 10mg Take 1 [facility] n 10 mg 6-08 tablet by ity of tablet 00:00: mouth at [place] [address] bedtime. Medical Branch rosuvastati Yes [id number] 10mg Take 1 [facility] n 10 mg 6-08 tablet by ity of tablet 00:00: mouth at [place] [address] bedtime. Medical Branch rosuvastati Yes [id number] 10mg Take 1 [facility] n 10 mg 6-08 tablet by ity of tablet 00:00: mouth at [place] [address] bedtime. Medical Branch rosuvastati Yes [id number] 10mg Take 1 [facility] n 10 mg 6-08 tablet by ity of tablet 00:00: mouth at [place] [address] bedtime. Medical Branch rosuvastati Yes [id number] 10mg Take 1 [facility] n 10 mg 6-08 tablet by ity of tablet 00:00: mouth at [place] [address] bedtime. Medical Branch rosuvastati Yes [id number] 10mg Take 1 [facility] n 10 mg 6-08 tablet by ity of tablet 00:00: mouth at [place] 00 bedtime. [facility] rosuvastati Yes [id number] 10mg Take 1 Univers n 10 mg 6-08 tablet by ity of tablet 00:00: mouth at [place] 00 bedtime. [facility] rosuvastati Yes [id number] 10mg Take 1 [facility] n 10 mg 6-08 tablet by ity of tablet 00:00: mouth at [place] 00 bedtime. [facility] rosuvastati Yes [id number] 10mg Take 1 Univers n 10 mg 6-08 tablet by ity of tablet 00:00: mouth at [place] 00 bedtime. [facility] rosuvastati Yes [id number] 10mg Take 1 [facility] n 10 mg 6-08 tablet by ity of tablet 00:00: mouth at [place] 00 bedtime. [facility] rosuvastati 2021- No [id number] 10mg Take 1 Univers n 10 mg 6-08 10-13 tablet by ity of tablet 00:00: 00:00 mouth at [place] 00 :00 bedtime. [facility] water for 2021- No PRN, Univers [...] 1000mL at 42 Unive rs ringers IV 03-0207 mL/hr, ity of infusion 12:45: 12:59 1,000 mL, Emanuel as 1,000 mL 00 :00 IV Medical Infusion, Branch ONCE, 1 dose, On Tue03/02/22 at 0745, Routine, DSU Pre-op lactated 2021- No 1000mL at 42 [facility] rs ringers IV 03-02 06-07 mL/hr, ity of infusion 12:45: 12:59 1,000 mL, Emanuel as 1,000 mL 00 :00 IV Medical Infusion, Branch ONCE, 1 dose, On Tue03/02/22 at 0745, Routine, DSU Pre-op FOLIC ACID 0 Yes Take by [facility] ers ORAL 6-07 mouth ity of 11:23: daily. [place] [facility] MULTIVIT Yes Take by [facility] &MINERALS/F 6-07 mouth. ity of ERROUS FUM 11:23: [place] (MULTI Medical VITAMIN Branch ORAL) METHYLCELLU Yes [facility] LOSE (FIBER 6- ity of THERAPY 11:23: [place] MISC) Medical Branch DOCUSATE Yes Take by [facility] s SODIUM 6-07 mouth. ity of [...] [facility] rs FRUIT 6-07 mouth ity of EXTRACT [...] Uni vers 6-07 mouth. ity of 11:23: [place] [address] Medical Branch FOLIC ACID Yes Take by [facility] ers ORAL 6-07 mouth ity of 11:23: daily. [place] [address] Medical Branch MULTIVIT Yes Take by [facility] s &MINERALS/F 6-07 mouth. ity of ERROUS FUM 11:23: [place] (MULTI 09 Medical VITAMIN Branch ORAL) METHYLCELLU 2021-0 Yes Univer s LOSE (FIBER 6-07 ity of THERAPY 11:23: [facility]) 09 Medical Branch DOCUSATE 0 Yes [...] Uni vers 6-07 mouth. ity of 11:23: [place] [address] Medical Branch FOLIC ACID 0 Yes Take by Univ ers ORAL 6-07 mouth ity of 11:23: daily. [place] [facility] Branch MULTIVIT Yes Take by Univer s &MINERALS/F 6-07 mouth. ity of ERROUS FUM 11:23: [place] (MULTI 09 Medical VITAMIN Branch ORAL) METHYLCELLU 0 Yes Univer s LOSE (FIBER 6-07 ity of THERAPY 11:23: [facility]) 09 Medical Branch DOCUSATE 0 Yes Take by Univer s SODIUM 6-07 mouth. ity of (COLACE 11:23: [place] ORAL) 09 Medical Branch vitamin C 0 Yes 1000mg Take 1,000 Univers with derrell 6-07 mg by ity of hips 11:23: mouth [place] (VITAMIN C) 09 daily. Medica l 1,000 mg Branch tablet cholecalcif 2022-0 Yes 1000U Take 1,000 [facility] demar, 6-07 Units by ity of vitamin D3, 11:23: mouth [place] (VITAMIN 09 daily. Medical D3) 1,000 Branch unit tablet CRANBERRY Yes Take by [facility] rs FRUIT 6-07 mouth ity of EXTRACT [...] Uni vers 6-07 mouth. ity of 11:23: [place] [address] Medical Branch FOLIC ACID Yes Take by Univ ers ORAL 6-07 mouth ity of 11:23: daily. [place] [address] Medical Branch MULTIVIT Yes Take by [facility] s &MINERALS/F 6-07 mouth. ity of ERROUS FUM 11:23: [place] (MULTI 09 Medical VITAMIN Branch ORAL) METHYLCELLU Yes Univer s LOSE (FIBER 6-07 ity of THERAPY 11:23: [place] MISC) Medical Branch DOCUSATE Yes Take by [facility] s SODIUM 6-07 mouth. ity of (COLACE [...] Branch unit tablet CRANBERRY Yes Take by [facility] rs FRUIT 6-07 mouth ity of EXTRACT [...] LOSE (FIBER 6-07 ity of THERAPY 11:23: [facility]) 09 Medical Branch DOCUSATE Yes Take by [facility] s SODIUM 6-07 mouth. ity of (COLACE [...] [facility] rs FRUIT 6-07 mouth ity of EXTRACT [...] Uni vers 6-07 mouth. ity of 11:23: [place] [address] Medical Branch FOLIC ACID Yes Take by Univ ers ORAL 6-07 mouth ity of 11:23: daily. [place] [address] Medical Branch MULTIVIT Yes Take by [facility] &MINERALS/F 6-07 mouth. ity of ERROUS FUM 11:23: [place] (MULTI 09 Medical VITAMIN Branch ORAL) METHYLCELLU 0 Yes [facility] LOSE (FIBER 6-07 ity of THERAPY 11:23: [facility]) 09 Medical Branch DOCUSATE 0 Yes Take by [facility] SODIUM 6-07 mouth. ity of (COLACE [...] mouth. ity of ERROUS FUM 11:23: [place] ([place] [address] Medical VITAMIN Branch ORAL) METHYLCELLU 0 Yes Univer s LOSE (FIBER 6-07 ity of THERAPY 11:23: [facility]) 09 Medical Branch DOCUSATE 0 Yes [...] ORAL 6-07 mouth ity of 11:23: daily. [place] [address] Medical Branch DOCOSAHEXAN Yes 1000mg Take 1,000 [...] mouth. ity of ERROUS FUM 11:23: [place] ([place] [address] Medical VITAMIN Branch ORAL) METHYLCELLU 0 Yes Univer s LOSE (FIBER 6-07 ity of THERAPY 11:23: [facility]) 09 Medical Branch DOCUSATE Yes Take [...] ORAL 6-07 mouth ity of 11:23: daily. [place] [address] Medical Branch MULTIVIT Yes Take by Univer s &MINERALS/F 6-07 mouth. ity of ERROUS FUM 11:23: [place] (MULTI 09 Medical VITAMIN Branch ORAL) METHYLCELLU 0 Yes Univer s LOSE (FIBER 6-07 ity of THERAPY 11:23: [facility]) Medical Branch DOCUSATE Yes Take by [...] Branch unit tablet CRANBERRY Yes Take by [facility] rs FRUIT 6-07 mouth ity of EXTRACT 11:23: daily. [place] (CRANB[place]Y 09 Medical ORAL) Branch CALCIUM Yes Take by Univers ORAL 6-07 mouth ity of 11:23: daily. [place] [address] Medical Branch DOCOSAHEXAN Yes 1000mg Take 1,000 Univers OIC 6-07 mg by ity of ACID/EPA 11:23: mouth [place] (FISH OIL 09 daily. Medical ORAL) Branch BIOTIN ORAL Yes Take by Uni vers 6-07 mouth. ity of 11:23: [place] [address] Medical Branch FOLIC ACID Yes Take by Univ ers ORAL 6-07 mouth ity of 11:23: daily. [place] [address] Medical Branch MULTIVIT Yes Take by Univer s &MINERALS/F 6-07 mouth. ity of ERROUS FUM 11:23: [place] (MULTI 09 Medical VITAMIN Branch ORAL) METHYLCELLU 0 Yes Univer s LOSE (FIBER 6-07 ity of THERAPY 11:23: [facility]) Medical Branch DOCUSATE 0 Yes Take [...] unit tablet CRANBERRY 0 Yes Take by [facility] rs FRUIT 6-07 mouth ity of EXTRACT [...] [place] [facility] MULTIVIT Yes Take by [facility] s &MINERALS/F 6-07 mouth. ity of ERROUS FUM 11:23: [place] (MULTI 09 Medical VITAMIN Branch ORAL) METHYLCELLU Yes Univer s LOSE (FIBER 6-07 ity of THERAPY 11:23: [place] MISC) 09 Medical Branch DOCUSATE Yes Take by [facility] s SODIUM 6-07 mouth. ity of (COLACE [...] 09 Medical VITAMIN Branch ORAL) METHYLCELLU Yes [facility] s LOSE (FIBER 6-07 ity of THERAPY 11:23: [place] MISC) Medical Branch DOCUSATE Yes Take by [facility] SODIUM 6-07 mouth. ity of (COLACE [...] Branch unit tablet CRANBERRY Yes Take by [facility] rs FRUIT 6-07 mouth ity of EXTRACT [...] Medical VITAMIN Branch ORAL) METHYLCELLU 2021-0 Yes [facility] LOSE (FIBER 6-07 ity of THERAPY 11:23: [facility]) 09 Medical Branch DOCUSATE 0 Yes Take by [facility] SODIUM 6-07 mouth. ity of (COLACE [...] [facility] rs FRUIT 6-07 mouth ity of EXTRACT 11:23: daily. [place] (CRANB[place]Y 09 Medical ORAL) Branch CALCIUM 0 Yes Take by [facility] ORAL 6-07 mouth ity of 11:23: daily. [place] [address] Medical Branch DOCOSAHEXAN Yes 1000mg Take 1,000 Univers OIC 6-07 mg by ity of ACID/EPA 11:23: mouth [place] (FISH OIL 09 daily. Medical ORAL) Branch BIOTIN ORAL 0 Yes Take by Uni vers 6-07 mouth. ity of 11:23: [place] [address] Medical Branch FOLIC ACID 0 Yes Take by [facility] ers ORAL 6-07 mouth ity of 11:23: daily. [place] [address] Medical Branch MULTIVIT Yes Take by [facility] s &MINERALS/F 6-07 mouth. ity of ERROUS FUM 11:23: [place] (MULTI 09 Medical VITAMIN Branch ORAL) METHYLCELLU 2021-0 Yes [facility] LOSE (FIBER 6-07 ity of THERAPY 11:23: [facility]) 09 Medical Branch DOCUSATE 0 Yes Take by [facility] s SODIUM 6-07 mouth. ity of (COLACE 11:23: [place] ORAL) 09 Medical Branch vitamin C 2021-0 Yes 1000mg [...] LOSE (FIBER 6-07 ity of THERAPY 11:23: [facility]) 09 Medical Branch DOCUSATE Yes Take by [facility] SODIUM 6-07 mouth. ity of (COLACE [...] [facility] rs FRUIT 6-07 mouth ity of EXTRACT [...] Uni vers 6-07 mouth. ity of 11:23: [place] [address] Medical Branch FOLIC ACID Yes Take by Univ ers ORAL 6-07 mouth ity of 11:23: daily. [place] [address] Medical Branch MULTIVIT Yes Take by [facility] s &MINERALS/F 6-07 mouth. ity of ERROUS FUM 11:23: [place] (MULTI 09 Medical VITAMIN Branch ORAL) METHYLCELLU 0 Yes Univer s LOSE (FIBER 6-07 ity of THERAPY 11:23: [facility]) 09 Medical Branch DOCUSATE Yes Take by [facility] SODIUM 6-07 mouth. ity of (COLACE [...] Uni vers 6-07 mouth. ity of 11:23: [place] [address] Medical Branch FOLIC ACID Yes Take by [...] mouth. ity of (COLACE 11:23: [place] ORAL) Medical Branch vitamin C Yes 1000mg [...] ORAL 6-07 mouth ity of 11:23: daily. [place] [address] Medical Branch DOCOSAHEXAN Yes 1000mg Take 1,000 Univers OIC 6-07 mg by ity of ACID/EPA 11:23: mouth [place] (FISH OIL 09 daily. Medical ORAL) Branch BIOTIN ORAL Yes Take by Uni vers 6-07 mouth. ity of 11:23: [place] [address] Medical Branch FOLIC ACID Yes Take by Univ ers ORAL 6-07 mouth ity of 11:23: daily. [place] Medical Branch MULTIVIT Yes Take by Univer s &MINERALS/F 6-07 mouth. ity of ERROUS FUM 11:23: [place] ([place] [address] Medical VITAMIN Branch ORAL) METHYLCELLU 0 Yes Univer s LOSE (FIBER 6-07 ity of THERAPY 11:23: [facility]) 09 Medical Branch DOCUSATE Yes Take [...] ORAL 6-07 mouth ity of 11:23: daily. [place] [address] Medical Branch MULTIVIT Yes Take by Univer s &MINERALS/F 6-07 mouth. ity of ERROUS FUM 11:23: [place] ([facility] 09 Medical VITAMIN Branch ORAL) METHYLCELLU 0 Yes Univer s LOSE (FIBER 6-07 ity of THERAPY 11:23: [facility]) 09 Medical Branch DOCUSATE 0 Yes [...] [facility] rs FRUIT 6-07 mouth ity of EXTRACT [...] Medical Branch FOLIC ACID Yes Take by [place] ers ORAL 6-07 mouth ity of 11:23: daily. [place] Medical Branch MULTIVIT Yes Take by [facility] s &MINERALS/F 6-07 mouth. ity of ERROUS FUM 11:23: [place] (MULTI 09 Medical VITAMIN Branch ORAL) METHYLCELLU 0 Yes [facility] LOSE (FIBER 6-07 ity of THERAPY 11:23: [place] MISC) 09 Medical Branch DOCUSATE Yes Take by [facility] s SODIUM 6-07 mouth. ity of [...] VITAMIN Branch ORAL) METHYLCELLU 0 Yes [facility] LOSE (FIBER 6-07 ity of THERAPY 11:23: [facility]) 09 Medical Branch DOCUSATE Yes Take by [facility] SODIUM 6-07 mouth. ity of (COLACE [...] Branch unit tablet CRANBERRY Yes Take by [facility] rs FRUIT 6-07 mouth ity of EXTRACT [...] Uni vers 6-07 mouth. ity of 11:23: [place] [address] Medical Branch FOLIC ACID Yes Take by Univ ers ORAL 6-07 mouth ity of 11:23: daily. [place] Medical Branch MULTIVIT Yes Take by [facility] rs &MINERALS/F 6-07 mouth. ity of ERROUS FUM 11:23: [place] (MULTI 09 Medical VITAMIN Branch ORAL) METHYLCELLU 0 Yes Univer s LOSE (FIBER 6-07 ity of THERAPY 11:23: [facility]) 09 Medical Branch DOCUSATE Yes Take by [facility] SODIUM 6-07 mouth. ity of (COLACE 11:23: [place] ORAL) 09 Medical Branch vitamin C 2022-0 Yes 1000mg Take 1,000 Univers with derrell 6-07 mg by ity of hips 11:23: mouth [place] (VITAMIN C) 09 daily. Medica l 1,000 mg Branch tablet cholecalcif Yes 1000U Take 1,000 Univers edmar, 6-07 Units by ity of vitamin D3, 11:23: mouth [place] (VITAMIN 09 daily. Medical D3) 1,000 Branch unit tablet CRANBERRY 0 Yes Take by [facility] rs FRUIT 6-07 mouth ity of EXTRACT [...] Uni vers 6-07 mouth. ity of 11:23: [place] [address] Medical Branch FOLIC ACID Yes Take by Univ ers ORAL 6-07 mouth ity of 11:23: daily. [place] Medical Branch MULTIVIT Yes Take by [facility] &MINERALS/F 6-07 mouth. ity of ERROUS FUM 11:23: [place] (MULTI 09 Medical VITAMIN Branch ORAL) METHYLCELLU Yes Univer s LOSE (FIBER 6-07 ity of THERAPY 11:23: [place] MIS) 09 Medical Branch DOCUSATE Yes Take by [facility] SODIUM 6-07 mouth. ity of (COLACE [...] unit tablet CRANBERRY 0 Yes Take by [facility] rs FRUIT 6-07 mouth ity of EXTRACT 11:23: daily. [place] ([place] 09 Medical ORAL) Branch CALCIUM 0 Yes Take [...] 09 Medical VITAMIN Branch ORAL) METHYLCELLU Yes [facility] s LOSE (FIBER 6-07 ity of THERAPY 11:23: [place] MISC) 09 Medical Branch DOCUSATE Yes Take by [facility] SODIUM 6-07 mouth. ity of (COLACE [...] Branch unit tablet CRANBERRY Yes Take by [facility] rs FRUIT 6-07 mouth ity of EXTRACT [...] mouth. ity of ERROUS FUM 11:23: [place] ([facility] 09 Medical VITAMIN Branch ORAL) METHYLCELLU 0 Yes [facility] LOSE (FIBER 6-07 ity of THERAPY 11:23: [facility]) 09 Medical Branch DOCUSATE Yes Take by [facility] SODIUM 6-07 mouth. ity of (COLACE [...] Branch unit tablet CRANBERRY Yes Take by [facility] rs FRUIT 6-07 mouth ity of EXTRACT 11:23: daily. [place] ([place] 09 Medical ORAL) Branch CALCIUM Yes Take by [facility] ORAL 6-07 mouth ity of 11:23: daily. [place] Medical Branch DOCOSAHEXAN Yes 1000mg Take 1,000 Univers OIC 6-07 mg by ity of ACID/EPA 11:23: mouth [place] (FISH OIL 09 daily. Medical ORAL) Branch BIOTIN ORAL Yes Take by Uni vers 6-07 mouth. ity of 11:23: [place] [address] Medical Branch FOLIC ACID Yes Take by Univ ers ORAL 6-07 mouth ity of 11:23: daily. [place] [address] Medical Branch MULTIVIT Yes Take by Univer s &MINERALS/F 6-07 mouth. ity of ERROUS FUM 11:23: [place] (MULTI 09 Medical VITAMIN Branch ORAL) METHYLCELLU 0 Yes Univer s LOSE (FIBER 6-07 ity of THERAPY 11:23: [facility]) 09 Medical Branch DOCUSATE 0 Yes Take by [facility] SODIUM 6-07 mouth. ity of (COLACE [...] unit tablet CRANBERRY 0 Yes Take by [facility] FRUIT 6-07 mouth ity of EXTRACT [...] [place] Medical Branch MULTIVIT Yes Take by [facility] s &MINERALS/F 6-07 mouth. ity of ERROUS FUM 11:23: [place] (MULTI 09 Medical VITAMIN Branch ORAL) METHYLCELLU Yes [facility] LOSE (FIBER 6-07 ity of THERAPY 11:23: [place] MISC) 09 Medical Branch DOCUSATE Yes Take by [facility] s SODIUM 6-07 mouth. ity of [...] unit tablet CRANBERRY 0 Yes Take by [facility] FRUIT 6-07 mouth ity of EXTRACT 11:23: daily. [place] ([place] 09 Medical ORAL) Branch CALCIUM 0 Yes Take [...] Uni vers 6-07 mouth. ity of 11:23: [place] [address] Medical Branch FOLIC ACID Yes Take by Uni vers ORAL 6- mouth ity of 11:58: daily. [place] [address] Medical Branch MULTIVIT Yes Take by Univer s &MINERALS/F 6-01 mouth. ity of ERROUS FUM 11:58: [place] (MULTI 16 Medical VITAMIN Branch ORAL) METHYLCELLU 2022-0 Yes Univer s LOSE (FIBER 6-01 ity of THERAPY 11:58: [place] MISC) 16 Medical Branch DOCUSATE Yes Take by [facility] s SODIUM 6-01 mouth. ity of (COLACE 11:58: [place] ORAL) Medical Branch vitamin C Yes 1000mg Take 1,000 Univers with derrell 6-01 mg by ity of hips 11:58: mouth [place] (VITAMIN C) 16 daily. Medica l 1,000 mg Branch tablet cholecalcif Yes 1000U Take 1,000 Univers edmar, 6- Units by ity of vitamin D3, 11:58: mouth [place] (VITAMIN 16 daily. Medical D3) 1,000 Branch unit tablet CRANBERRY Yes Take by [facility] rs FRUIT 6- mouth ity of EXTRACT 11:58: daily. [place] ([place]Y 16 Medical ORAL) [place] CALCIUM Yes Take by Univers ORAL 6-01 mouth ity of 11:58: daily. [address] DOCOSAHEXAN Yes 1000mg Take 1,000 Univers OIC 6-01 mg by ity of ACID/EPA 11:58: mouth [place] (FISH OIL 16 daily. Medical ORAL) [place] BIOTIN ORAL Yes Take by Uni vers 6-01 mouth. ity of 11:58: [address] metformin Yes [id number] 500mg Take 1 U nivers ER 500 mg 5-31 tablet by ity o f 24 hr 00:00: mouth [place] tablet 00 daily with Medical breakfast. Branch STOP REGULAR METFORMIN. metformin Yes [id number] 500mg Take 1 U nivers ER 500 mg 5-31 tablet by ity o f 24 hr 00:00: mouth [place] tablet 00 daily with Medical breakfast. Branch STOP REGULAR METFORMIN. metformin Yes [id number] 500mg Take 1 U nivers ER 500 mg 5-31 tablet by ity o f 24 hr 00:00: mouth [place] tablet 00 daily with Medical breakfast. Branch STOP REGULAR METFORMIN. metformin Yes [id number] 500mg Take 1 U nivers ER 500 mg 5-31 tablet by ity o f 24 hr 00:00: mouth [place] tablet 00 daily with Medical breakfast. Branch STOP REGULAR METFORMIN. metformin Yes [id number] 500mg Take 1 U nivers ER 500 mg 5-31 tablet by ity o f 24 hr 00:00: mouth [place] tablet 00 daily with Medical breakfast. Branch STOP REGULAR METFORMIN. metformin 2021-0 Yes [id number] 500mg Take 1 U nivers ER 500 mg 5-31 tablet by ity o f 24 hr 00:00: mouth [place] tablet 00 daily with Medical breakfast. Branch STOP REGULAR METFORMIN. metformin 2021-0 Yes [id number] 500mg Take 1 U nivers ER 500 mg 5-31 tablet by ity o f 24 hr 00:00: mouth [place] tablet 00 daily with Medical breakfast. Branch STOP REGULAR METFORMIN. metformin 2021-0 Yes [id number] 500mg Take 1 [facility] 500 mg 5-31 tablet by [facility] f 24 hr 00:00: mouth [place] tablet 00 daily with Medical breakfast. Branch STOP REGULAR METFORMIN. metformin 2021-0 Yes [id number] 500mg Take 1 [facility] 500 mg 5-31 tablet by [facility] f 24 hr 00:00: mouth [place] tablet 00 daily with Medical breakfast. Branch STOP REGULAR METFORMIN. metformin 2021-0 Yes [id number] 500mg Take 1 [facility] 500 mg 5-31 tablet by [facility] f 24 hr 00:00: mouth [place] tablet 00 daily with Medical breakfast. Branch STOP REGULAR METFORMIN. metformin 2021-0 Yes [id number] 500mg Take 1 [facility] 500 mg 5-31 tablet by [facility] f 24 hr 00:00: mouth [place] tablet 00 daily with Medical breakfast. Branch STOP REGULAR METFORMIN. metformin 2021-0 Yes [id number] 500mg Take 1 [facility] 500 mg 5-31 tablet by [facility] f 24 hr 00:00: mouth [place] tablet 00 daily with Medical breakfast. Branch STOP REGULAR METFORMIN. metformin 2021-0 Yes [id number] 500mg Take 1 [facility] 500 mg 5-31 tablet by [facility] f 24 hr 00:00: mouth [place] tablet 00 daily with Medical breakfast. Branch STOP REGULAR METFORMIN. metformin 2021-0 Yes [id number] 500mg Take 1 [facility] 500 mg 5-31 tablet by [facility] f 24 hr 00:00: mouth [place] tablet 00 daily with Medical breakfast. Branch STOP REGULAR METFORMIN. metformin 2021-0 Yes [id number] 500mg Take 1 [facility] 500 mg 5-31 tablet by [facility] f 24 hr 00:00: mouth [place] tablet 00 daily with Medical breakfast. Branch STOP REGULAR METFORMIN. metformin 2021-0 Yes [id number] 500mg Take 1 [facility] 500 mg 5-31 tablet by [facility] f 24 hr 00:00: mouth [place] tablet 00 daily with Medical breakfast. Branch STOP REGULAR METFORMIN. metformin 2021-0 Yes [id number] 500mg Take 1 [facility] 500 mg 5-31 tablet by [facility] f 24 hr 00:00: mouth [place] tablet 00 daily with Medical breakfast. Branch STOP REGULAR METFORMIN. metformin 2021-0 Yes [id number] 500mg Take 1 [facility] 500 mg 5-31 tablet by [facility] f 24 hr 00:00: mouth [place] tablet 00 daily with Medical breakfast. Branch STOP REGULAR METFORMIN. metformin 2021-0 Yes [id number] 500mg Take 1 [facility] 500 mg 5-31 tablet by [facility] f 24 hr 00:00: mouth [place] tablet 00 daily with Medical breakfast. Branch STOP REGULAR METFORMIN. metformin 2021-0 Yes [id number] 500mg Take 1 [facility] 500 mg 5-31 tablet by [facility] f 24 hr 00:00: mouth [place] tablet 00 daily with Medical breakfast. Branch STOP REGULAR METFORMIN. metformin 2021-0 Yes [id number] 500mg Take 1 [facility] 500 mg 5-31 tablet by [facility] f 24 hr 00:00: mouth [place] tablet 00 daily with Medical breakfast. Branch STOP REGULAR METFORMIN. metformin 2021-0 Yes [id number] 500mg Take 1 [facility] 500 mg 5-31 tablet by [facility] f 24 hr 00:00: mouth [place] tablet 00 daily with Medical breakfast. Branch STOP REGULAR METFORMIN. metformin 2021-0 Yes [id number] 500mg Take 1 [facility] 500 mg 5-31 tablet by [facility] f 24 hr 00:00: mouth [place] tablet 00 daily with Medical breakfast. Branch STOP REGULAR METFORMIN. metformin 2021-0 Yes [id number] 500mg Take 1 [facility] 500 mg 5-31 tablet by [facility] f 24 hr 00:00: mouth [place] tablet 00 daily with Medical breakfast. Branch STOP REGULAR METFORMIN. metformin 2021-0 Yes [id number] 500mg Take 1 [facility] 500 mg 5-31 tablet by [facility] f 24 hr 00:00: mouth [place] tablet 00 daily with Medical breakfast. Branch STOP REGULAR METFORMIN. metformin 2021-0 Yes [id number] 500mg Take 1 [facility] 500 mg 5-31 tablet by [facility] f 24 hr 00:00: mouth [place] tablet 00 daily with Medical breakfast. Branch STOP REGULAR METFORMIN. metformin 2021-0 Yes [id number] 500mg Take 1 [facility] 500 mg 5-31 tablet by [facility] f 24 hr 00:00: mouth [place] tablet 00 daily with Medical breakfast. Branch STOP REGULAR METFORMIN. metformin 2021-0 Yes [id number] 500mg Take 1 [facility] 500 mg 5-31 tablet by [facility] f 24 hr 00:00: mouth [place] tablet 00 daily with Medical breakfast. Branch STOP REGULAR METFORMIN. metformin 2021-0 Yes [id number] 500mg Take 1 [facility] 500 mg 5-31 tablet by [facility] f 24 hr 00:00: mouth [place] tablet 00 daily with Medical breakfast. Branch STOP REGULAR METFORMIN. metformin 2021-0 Yes [id number] 500mg Take 1 [facility] 500 mg 5-31 tablet by [facility] f 24 hr 00:00: mouth [place] tablet 00 daily with Medical breakfast. Branch STOP REGULAR METFORMIN. metformin 2021-0 Yes [id number] 500mg Take 1 [facility] 500 mg 5-31 tablet by [facility] f 24 hr 00:00: mouth [place] tablet 00 daily with Medical breakfast. Branch STOP REGULAR METFORMIN. metformin 2021-0 Yes [id number] 500mg Take 1 [facility] 500 mg 5-31 tablet by [facility] f 24 hr 00:00: mouth [place] tablet 00 daily with Medical breakfast. Branch STOP REGULAR METFORMIN. metformin 2021-0 Yes [id number] 500mg Take 1 [facility] 500 mg 5-31 tablet by [facility] f 24 hr 00:00: mouth [place] tablet 00 daily with Medical breakfast. Branch STOP REGULAR METFORMIN. metformin 2021-0 Yes [id number] 500mg Take 1 [facility] 500 mg 5-31 tablet by [facility] f 24 hr 00:00: mouth [place] tablet 00 daily with Medical breakfast. Branch STOP REGULAR METFORMIN. metformin 2021-0 Yes [id number] 500mg Take 1 [facility] 500 mg 5-31 tablet by [facility] f 24 hr 00:00: mouth [place] tablet 00 daily with Medical breakfast. Branch STOP REGULAR METFORMIN. metformin 2021-0 Yes [id number] 500mg Take 1 [facility] 500 mg 5-31 tablet by [facility] f 24 hr 00:00: mouth [place] tablet 00 daily with Medical breakfast. Branch STOP REGULAR METFORMIN. metformin 2021-0 Yes [id number] 500mg Take 1 [facility] 500 mg 5-31 tablet by [facility] f 24 hr 00:00: mouth [place] tablet 00 daily with Medical breakfast. Branch STOP REGULAR METFORMIN. metformin 2021-0 Yes [id number] 500mg Take 1 [facility] 500 mg 5-31 tablet by [facility] f 24 hr 00:00: mouth [place] tablet 00 daily with Medical breakfast. Branch STOP REGULAR METFORMIN. metformin 2021-0 Yes [id number] 500mg Take 1 [facility] 500 mg 5-31 tablet by [facility] f 24 hr 00:00: mouth [place] tablet 00 daily with Medical breakfast. Branch STOP REGULAR METFORMIN. metformin 2021-0 Yes [id number] 500mg Take 1 [facility] 500 mg 5-31 tablet by [facility] f 24 hr 00:00: mouth [place] tablet 00 daily with Medical breakfast. Branch STOP REGULAR METFORMIN. metformin 2021-0 Yes [id number] 500mg Take 1 [facility] 500 mg 5-31 tablet by [facility] o f 24 hr 00:00: mouth [place] tablet 00 daily with Medical breakfast. Branch STOP REGULAR METFORMIN. metformin 2021-0 Yes [id number] 500mg Take 1 [facility] 500 mg 5-31 tablet by [facility] f 24 hr 00:00: mouth [place] tablet 00 daily with Medical breakfast. Branch STOP REGULAR METFORMIN. metformin 2021-0 Yes [id number] 500mg Take 1 [facility] 500 mg 5-31 tablet by [facility] o f 24 hr 00:00: mouth [place] tablet 00 daily with Medical breakfast. Branch STOP REGULAR METFORMIN. metformin 2021-0 Yes [id number] 500mg Take 1 [facility] 500 mg 5-31 tablet by [facility] o f 24 hr 00:00: mouth [place] tablet 00 daily with Medical breakfast. Branch STOP REGULAR METFORMIN. metformin 2021-0 Yes [id number] 500mg Take 1 [facility] 500 mg 5-31 tablet by [facility] o f 24 hr 00:00: mouth [place] tablet 00 daily with Medical breakfast. Branch STOP REGULAR METFORMIN. metformin 2021-0 Yes [id number] 500mg Take 1 [facility] 500 mg 5-31 tablet by [facility] o f 24 hr 00:00: mouth [place] tablet 00 daily with Medical breakfast. Branch STOP REGULAR METFORMIN. metformin 2021-0 Yes [id number] 500mg Take 1 [facility] 500 mg 5-31 tablet by [facility] o f 24 hr 00:00: mouth [place] tablet 00 daily with Medical breakfast. Branch STOP REGULAR METFORMIN. metformin 2021-0 Yes [id number] 500mg Take 1 [facility] 500 mg 5-31 tablet by [facility] f 24 hr 00:00: mouth [place] tablet 00 daily with Medical breakfast. Branch STOP REGULAR METFORMIN. metformin 2021-0 2022- No [id number] 500mg Take 1 [facility] 500 mg 5-31 10-13 tablet by [facility] 24 hr 00:00: 00:00 mouth [place] tablet 00 :00 daily with Medical breakfast. Branch STOP REGULAR METFORMIN. ibuprofen 2021-0 Yes [id number] 600mg Take 1 [facility] 600 mg 5-19 [id number] tablet by [facility] tablet 00:00: mouth [place] 00 every 6 Medical (six) Branch hours as needed for Pain (scale 4-6). ibuprofen 2021-0 Yes [id number] 600mg Take 1 [facility] 600 mg 5-19 [id number] tablet by [facility] tablet 00:00: mouth [place] 00 every 6 Medical (six) Branch hours as needed for Pain (scale 4-6). ibuprofen 2021-0 Yes [id number] 600mg Take 1 [facility] 600 mg 5-19 [id number] tablet by [facility] tablet 00:00: mouth [place] 00 every 6 Medical (six) Branch hours as needed for Pain (scale 4-6). ibuprofen 2021-0 Yes [id number] 600mg Take 1 [facility] 600 mg 5-19 [id number] tablet by [facility] tablet 00:00: mouth [place] 00 every 6 Medical (six) Branch hours as needed for Pain (scale 4-6). ibuprofen 2021-0 Yes [id number] 600mg Take 1 [facility] 600 mg 5-19 [id number] tablet by [facility] tablet 00:00: mouth [place] 00 every 6 Medical (six) Branch hours as needed for Pain (scale 4-6). ibuprofen 2021-0 Yes [id number] 600mg Take 1 [facility] 600 mg 5-19 [id number] tablet by [facility] tablet 00:00: mouth [place] 00 every 6 Medical (six) Branch hours as needed for Pain (scale 4-6). ibuprofen 2022-0 Yes [id number] 600mg Take 1 [facility] 600 mg 5-19 [id number] tablet by [facility] tablet 00:00: mouth [place] 00 every 6 Medical (six) Branch hours as needed for Pain (scale 4-6). ibuprofen 2022-0 Yes [id number] 600mg Take 1 [facility] 600 mg 5-19 [id number] tablet by [facility] tablet 00:00: mouth [place] 00 every 6 Medical (six) Branch hours as needed for Pain (scale 4-6). ibuprofen 2022-0 Yes [id number] 600mg Take 1 [facility] 600 mg 5-19 [id number] tablet by [facility] tablet 00:00: mouth [place] 00 every 6 Medical (six) Branch hours as needed for Pain (scale 4-6). ibuprofen 2022-0 Yes [id number] 600mg Take 1 [facility] 600 mg 5-19 [id number] tablet by [facility] tablet 00:00: mouth [place] 00 every 6 Medical (six) Branch hours as needed for Pain (scale 4-6). ibuprofen 2022-0 Yes [id number] 600mg Take 1 [facility] 600 mg 5-19 [id number] tablet by [facility] tablet 00:00: mouth [place] 00 every 6 Medical (six) Branch hours as needed for Pain (scale 4-6). ibuprofen 2022-0 Yes [id number] 600mg Take 1 [facility] 600 mg 5-19 [id number] tablet by [facility] tablet 00:00: mouth [place] 00 every 6 Medical (six) Branch hours as needed for Pain (scale 4-6). ibuprofen 2022-0 Yes [id number] 600mg Take 1 [facility] 600 mg 5-19 [id number] tablet by [facility] tablet 00:00: mouth [place] 00 every 6 Medical (six) Branch hours as needed for Pain (scale 4-6). ibuprofen 2022-0 Yes [id number] 600mg Take 1 [facility] 600 mg 5-19 [id number] tablet by [facility] tablet 00:00: mouth [place] 00 every 6 Medical (six) Branch hours as needed for Pain (scale 4-6). ibuprofen 2022-0 Yes [id number] 600mg Take 1 [facility] 600 mg 5-19 [id number] tablet by [facility] tablet 00:00: mouth [place] 00 every 6 Medical (six) Branch hours as needed for Pain (scale 4-6). ibuprofen 2022-0 Yes [id number] 600mg Take 1 [facility] 600 mg 5-19 [id number] tablet by [facility] tablet 00:00: mouth [place] 00 every 6 Medical (six) Branch hours as needed for Pain (scale 4-6). ibuprofen 2022-0 Yes [id number] 600mg Take 1 [facility] 600 mg 5-19 [id number] tablet by [facility] tablet 00:00: mouth [place] 00 every 6 Medical (six) Branch hours as needed for Pain (scale 4-6). ibuprofen 2022-0 Yes [id number] 600mg Take 1 [facility] 600 mg 5-19 [id number] tablet by [facility] tablet 00:00: mouth [place] 00 every 6 Medical (six) Branch hours as needed for Pain (scale 4-6). ibuprofen 2022-0 Yes [id number] 600mg Take 1 [facility] 600 mg 5-19 [id number] tablet by [facility] tablet 00:00: mouth [place] 00 every 6 Medical (six) Branch hours as needed for Pain (scale 4-6). ibuprofen 2022-0 Yes [id number] 600mg Take 1 [facility] 600 mg 5-19 [id number] tablet by [facility] tablet 00:00: mouth [place] 00 every 6 Medical (six) Branch hours as needed for Pain (scale 4-6). ibuprofen 2022-0 Yes [id number] 600mg Take 1 [facility] 600 mg 5-19 [id number] tablet by [facility] tablet 00:00: mouth [place] 00 every 6 Medical (six) Branch hours as needed for Pain (scale 4-6). ibuprofen 2022-0 Yes [id number] 600mg Take 1 [facility] 600 mg 5-19 [id number] tablet by [facility] tablet 00:00: mouth [place] 00 every 6 Medical (six) Branch hours as needed for Pain (scale 4-6). ibuprofen 2022-0 Yes [id number] 600mg Take 1 [facility] 600 mg 5-19 [id number] tablet by [facility] tablet 00:00: mouth [place] 00 every 6 Medical (six) Branch hours as needed for Pain (scale 4-6). ibuprofen 2022-0 Yes [id number] 600mg Take 1 [facility] 600 mg 5-19 [id number] tablet by [facility] tablet 00:00: mouth [place] 00 every 6 Medical (six) Branch hours as needed for Pain (scale 4-6). ibuprofen 2022-0 Yes [id number] 600mg Take 1 [facility] 600 mg 5-19 [id number] tablet by [facility] tablet 00:00: mouth [place] 00 every 6 Medical (six) Branch hours as needed for Pain (scale 4-6). ibuprofen 2022-0 Yes [id number] 600mg Take 1 [facility] 600 mg 5-19 [id number] tablet by [facility] tablet 00:00: mouth [place] 00 every 6 Medical (six) Branch hours as needed for Pain (scale 4-6). ibuprofen 2022-0 Yes [id number] 600mg Take 1 [facility] 600 mg 5-19 [id number] tablet by [facility] tablet 00:00: mouth [place] 00 every 6 Medical (six) Branch hours as needed for Pain (scale 4-6). ibuprofen 2022-0 Yes [id number] 600mg Take 1 [facility] 600 mg 5-19 [id number] tablet by [facility] tablet 00:00: mouth [place] 00 every 6 Medical (six) Branch hours as needed for Pain (scale 4-6). ibuprofen 2022-0 Yes [id number] 600mg Take 1 [facility] 600 mg 5-19 [id number] tablet by [facility] tablet 00:00: mouth [place] 00 every 6 Medical (six) Branch hours as needed for Pain (scale 4-6). ibuprofen 2022-0 Yes [id number] 600mg Take 1 [facility] 600 mg 5-19 [id number] tablet by [facility] tablet 00:00: mouth [place] 00 every 6 Medical (six) Branch hours as needed for Pain (scale 4-6). ibuprofen 2022-0 Yes [id number] 600mg Take 1 [facility] 600 mg 5-19 [id number] tablet by [facility] tablet 00:00: mouth [place] 00 every 6 Medical (six) Branch hours as needed for Pain (scale 4-6). ibuprofen 2022-0 Yes [id number] 600mg Take 1 [facility] 600 mg 5-19 [id number] tablet by [facility] of tablet 00:00: mouth [place] 00 every 6 Medical (six) Branch hours as needed for Pain (scale 4-6). ibuprofen 2022-0 Yes [id number] 600mg Take 1 [facility] 600 mg 5-19 [id number] tablet by [facility] tablet 00:00: mouth [place] 00 every 6 Medical (six) Branch hours as needed for Pain (scale 4-6). ibuprofen 2022-0 Yes [id number] 600mg Take 1 [facility] 600 mg 5-19 [id number] tablet by [facility] tablet 00:00: mouth [place] 00 every 6 Medical (six) Branch hours as needed for Pain (scale 4-6). ibuprofen 2021-0 Yes [id number] 600mg Take 1 [facility] 600 mg 5-19 [id number] tablet by [facility] of tablet 00:00: mouth [place] 00 every 6 Medical (six) Branch hours as needed for Pain (scale 4-6). ibuprofen 2021-0 Yes [id number] 600mg Take 1 [facility] 600 mg 5-19 [id number] tablet by [facility] tablet 00:00: mouth [place] 00 every 6 Medical (six) Branch hours as needed for Pain (scale 4-6). ibuprofen 2021- No [id number] 600mg Take 1 [facility] 600 mg 5-14 06- [id number] tablet by [facility] o f tablet 00:00: 00:00 mouth [place] 00 :00 every 6 Medical (six) Branch hours as needed for Pain (scale 4-6). ibuprofen 2021-0 2- No [id number] 600mg Take 1 [facility] 600 mg 5-06-17 [id number] tablet by [facility] o f tablet 00:00: 00:00 mouth [place] 00 :00 every 6 Medical (six) Branch hours as needed for Pain (scale 4-6). ibuprofen 2021-0 2- No [id number] 600mg Take 1 [facility] 600 mg 5-19 06-17 [id number] tablet by [facility] o f tablet 00:00: 00:00 mouth [place] 00 :00 every 6 Medical (six) Branch hours as needed for Pain (scale 4-6). topiramate 2021-0 Yes [id number] 50mg Take 2 [facility] 25 mg 5-16 tablets by [facility] tablet 00:00: mouth 2 (two) Medical times Branch daily. topiramate 2021-0 Yes [id number] 50mg Take 2 [facility] 25 mg 5-16 tablets by [facility] of tablet 00:00: mouth 2 (two) Medical times Branch daily. topiramate 2021-0 Yes [id number] 50mg Take 2 [facility] 25 mg 5-16 tablets by [facility] of tablet 00:00: mouth 2 (two) Medical times Branch daily. topiramate 2021-0 Yes [id number] 50mg Take 2 [facility] 25 mg 5-16 tablets by [facility] of tablet 00:00: mouth 2 (two) Medical times Branch daily. topiramate 2022-0 Yes [id number] 50mg Take 2 [facility] 25 mg 5-16 tablets by [facility] tablet 00:00: mouth (two) Medical times Branch daily. topiramate 2022-0 Yes [id number] 50mg Take 2 [facility] 25 mg 5-16 tablets by [facility] tablet 00:00: mouth 2 (two) Medical times Branch daily. topiramate 2022-0 Yes [id number] 50mg Take 2 [facility] 25 mg 5-16 tablets by [facility] tablet 00:00: mouth (two) Medical times Branch daily. topiramate 2-0 Yes [id number] 50mg Take 2 [facility] 25 mg 5-16 tablets by [facility] tablet 00:00: mouth (two) Medical times Branch daily. topiramate 2-0 Yes [id number] 50mg Take 2 [facility] 25 mg 5-16 tablets by [facility] of tablet 00:00: mouth (two) Medical times Branch daily. SUMAtriptan 2-0 Yes [id number] 50mg Take 1 [facility] 50 mg 5-16 tablet by [facility] of tablet 00:00: mouth as [place] 00 needed for Medical Migraine. Branch topiramate 2-0 Yes [id number] 50mg Take 2 [facility] 25 mg 5-16 tablets by [facility] of tablet 00:00: mouth (two) Medical times Branch daily. SUMAtriptan 2-0 Yes [id number] 50mg Take 1 [facility] 50 mg 5-16 tablet by [facility] of tablet 00:00: mouth as [place] 00 needed for Medical Migraine. Branch topiramate 2-0 Yes [id number] 50mg Take 2 [facility] 25 mg 5-16 tablets by [facility] of tablet 00:00: mouth (two) Medical times Branch daily. SUMAtriptan 2022-0 Yes [id number] 50mg Take 1 [facility] 50 mg 5-16 tablet by [facility] of tablet 00:00: mouth as [place] 00 needed for Medical Migraine. Branch topiramate 2-0 Yes [id number] 50mg Take 2 [facility] 25 mg 5-16 tablets by [facility] of tablet 00:00: mouth 2 (two) Medical times Branch daily. SUMAtriptan 2022-0 Yes [id number] 50mg Take 1 [facility] 50 mg 5-16 tablet by [facility] of tablet 00:00: mouth as needed for Medical Migraine. Branch topiramate 2021-0 Yes [id number] 50mg Take 2 [facility] 25 mg 5-16 tablets by [facility] of tablet 00:00: mouth 2 (two) Medical times Branch daily. SUMAtriptan 2021-0 Yes [id number] 50mg Take 1 [facility] 50 mg 5-16 tablet by [facility] tablet 00:00: mouth as 00 needed for Medical Migraine. Branch topiramate 2021-0 Yes [id number] 50mg Take 2 [facility] 25 mg 5-16 tablets by [facility] of tablet 00:00: mouth (two) Medical times Branch daily. SUMAtriptan 2021-0 Yes [id number] 50mg Take 1 [facility] 50 mg 5-16 tablet by [facility] of tablet 00:00: mouth as needed for Medical Migraine. Branch topiramate 2021-0 Yes [id number] 50mg Take 2 [facility] 25 mg 5-16 tablets by [facility] of tablet 00:00: mouth (two) Medical times Branch daily. topiramate 2021-0 Yes [id number] 50mg Take 2 [facility] 25 mg 5-16 tablets by [facility] of tablet 00:00: mouth (two) Medical times Branch daily. topiramate 2021-0 Yes [id number] 50mg Take 2 [facility] 25 mg 5-16 tablets by [facility] of tablet 00:00: mouth (two) Medical times Branch daily. topiramate 2021-0 Yes [id number] 50mg Take 2 [facility] 25 mg 5-16 tablets by [facility] of tablet 00:00: mouth (two) Medical times Branch daily. topiramate 2021-0 Yes [id number] 50mg Take 2 [facility] 25 mg 5-16 tablets by [facility] of tablet 00:00: mouth (two) Medical times Branch daily. topiramate 2021-0 Yes [id number] 50mg Take 2 [facility] 25 mg 5-16 tablets by [facility] of tablet 00:00: mouth (two) Medical times Branch daily. topiramate 2-0 2022- No [id number] 50mg Take 2 [facility] 25 mg 5-16 - tablets by [facility] tablet 00:00: 00:00 mouth 2 [place] 00 :00 (two) Medical times Branch daily. SUMAtriptan 2021- No [id number] 50mg Take 1 [facility] 50 mg 5-16 -17 tablet by [facility] of tablet 00:00: 00:00 [...] 1{dose} Apply 1 [facility] vers PADS PadM 506-17 Dose to [facility] of 00:00: 00:00 area(s) [place] 00 :00 before Medical meals. Branch ALCOHOL 2021- No 1{dose} Apply 1 [facility] vers PADS PadM 01-31 Dose to [facility] of 00:00: 00:00 [facility] [place] 00 :00 before Medical meals. Branch ALCOHOL 2021- No 1{dose} Apply 1 [facility] vers PADS PadM 01-31 Dose to [facility] of 00:00: 00:00 [facility] [place] 00 :00 before Medical meals. Branch pregabalin Yes [id number] 150mg Take 1 [facility] 150 mg 4-29 capsule by [facility] of capsule 00:00: mouth 3 (three) Medical times Branch daily. busPIRone Yes [id number] 20mg Take 2 [facility] [place] 10 mg 4-29 tablets by [facility] of tablet 00:00: mouth [place] (two) Medical times Branch daily. citalopram Yes [id number] 40mg Take 1 [facility] 40 mg 4-29 tablet by [facility] of tablet 00:00: mouth [place] 00 daily. Medical Branch pregabalin Yes [id number] 150mg Take 1 [facility] 150 mg 4-29 capsule by [facility] of capsule 00:00: mouth 3 (three) Medical times Branch daily. busPIRone Yes [id number] 20mg Take 2 [facility] [place] 10 mg 4-29 tablets by [facility] of tablet 00:00: mouth (two) Medical times Branch daily. citalopram Yes [id number] 40mg Take 1 [facility] 40 mg 4-29 tablet by [facility] of tablet 00:00: mouth [place] 00 daily. Medical Branch pregabalin Yes [id number] 150mg Take 1 [facility] 150 mg 4-29 capsule by [facility] of capsule 00:00: mouth 3 (three) Medical times Branch daily. busPIRone 2021-0 Yes [id number] 20mg Take 2 [facility] [place] 10 mg 4-29 tablets by [facility] tablet 00:00: mouth (two) Medical times Branch daily. citalopram 2021-0 Yes [id number] 40mg Take 1 [facility] 40 mg 4-29 tablet by [facility] tablet 00:00: mouth 00 daily. Medical Branch pregabalin 2021-0 Yes [id number] 150mg Take 1 [facility] 150 mg 4-29 capsule by [facility] of capsule 00:00: mouth 3 (three) Medical times Branch daily. busPIRone 2021-0 Yes [id number] 20mg Take 2 [facility] [place] 10 mg 4-29 tablets by [facility] of tablet 00:00: mouth (two) Medical times Branch daily. citalopram 2021-0 Yes [id number] 40mg Take 1 [facility] 40 mg 4-29 tablet by [facility] tablet 00:00: mouth daily. Medical Branch pregabalin 2021-0 Yes [id number] 150mg Take 1 [facility] 150 mg 4-29 capsule by [facility] of capsule 00:00: mouth (three) Medical times Branch daily. busPIRone 2021-0 Yes [id number] 20mg Take 2 [facility] [place] 10 mg 4-29 tablets by [facility] of tablet 00:00: mouth (two) Medical times Branch daily. citalopram 2021-0 Yes [id number] 40mg Take 1 [facility] 40 mg 4-29 tablet by [facility] tablet 00:00: mouth daily. Medical Branch pregabalin 2021-0 Yes [id number] 150mg Take 1 [facility] 150 mg 4-29 capsule by [facility] of capsule 00:00: mouth 3 (three) Medical times Branch daily. busPIRone 2021-0 Yes [id number] 20mg Take 2 [facility] [place] 10 mg 4-29 tablets by [facility] of tablet 00:00: mouth (two) Medical times Branch daily. citalopram 2021-0 Yes [id number] 40mg Take 1 [facility] 40 mg 4-29 tablet by [facility] of tablet 00:00: mouth 00 daily. Medical Branch pregabalin 2021-0 Yes [id number] 150mg Take 1 [facility] 150 mg 4-29 capsule by [facility] of capsule 00:00: mouth 3 (three) Medical times Branch daily. busPIRone 2021-0 Yes [id number] 20mg Take 2 [facility] [place] 10 mg 4-29 tablets by [facility] of tablet 00:00: mouth (two) Medical times Branch daily. citalopram 2021-0 Yes [id number] 40mg Take 1 [facility] 40 mg 4-29 tablet by [facility] of tablet 00:00: mouth daily. Medical Branch pregabalin 2021-0 Yes [id number] 150mg Take 1 [facility] 150 mg 4-29 capsule by [facility] of capsule 00:00: mouth (three) Medical times Branch daily. busPIRone 2021-0 Yes [id number] 20mg Take 2 [facility] [place] 10 mg 4-29 tablets by [facility] of tablet 00:00: mouth (two) Medical times Branch daily. citalopram 2021-0 Yes [id number] 40mg Take 1 [facility] 40 mg 4-29 tablet by [facility] of tablet 00:00: mouth daily. Medical Branch pregabalin 2021-0 Yes [id number] 150mg Take 1 [facility] 150 mg 4-29 capsule by [facility] of capsule 00:00: mouth (three) Medical times Branch daily. busPIRone 2021-0 Yes [id number] 20mg Take 2 [facility] [place] 10 mg 4-29 tablets by [facility] of tablet 00:00: mouth (two) Medical times Branch daily. citalopram 2021-0 Yes [id number] 40mg Take 1 [facility] 40 mg 4-29 tablet by [facility] of tablet 00:00: mouth daily. Medical Branch pregabalin 2021-0 Yes [id number] 150mg Take 1 [facility] 150 mg 4-29 capsule by [facility] of capsule 00:00: mouth (three) Medical times Branch daily. busPIRone 2021-0 Yes [id number] 20mg Take 2 [facility] [place] 10 mg 4-29 tablets by [facility] of tablet 00:00: mouth (two) Medical times Branch daily. citalopram 2021-0 Yes [id number] 40mg Take 1 [facility] 40 mg 4-29 tablet by [facility] of tablet 00:00: mouth daily. Medical Branch pregabalin 2021-0 Yes [id number] 150mg Take 1 [facility] 150 mg 4-29 capsule by [facility] of capsule 00:00: mouth (three) Medical times Branch daily. busPIRone 2021-0 Yes [id number] 20mg Take 2 [facility] [place] 10 mg 4-29 tablets by [facility] of tablet 00:00: mouth (two) Medical times Branch daily. citalopram 2021-0 Yes [id number] 40mg Take 1 [facility] 40 mg 4-29 tablet by [facility] tablet 00:00: mouth 00 daily. Medical Branch pregabalin 2021-0 Yes [id number] 150mg Take 1 [facility] 150 mg 4-29 capsule by [facility] of capsule 00:00: mouth (three) Medical times Branch daily. busPIRone 2021-0 Yes [id number] 20mg Take 2 [facility] [place] 10 mg 4-29 tablets by [facility] of tablet 00:00: mouth (two) Medical times Branch daily. citalopram 2021-0 Yes [id number] 40mg Take 1 [facility] 40 mg 4-29 tablet by [facility] tablet 00:00: mouth daily. Medical [facility] pregabalin 2021-0 Yes [id number] 150mg Take 1 [facility] 150 mg 4-29 capsule [facility] 00:00: mouth (three) [facility] times [facility] daily. busPIRone 2021-0 Yes [id number] 20mg Take 2 [facility] 10 mg 4-29 tablets by [facility] tablet 00:00: mouth (two) [facility] times [facility] daily. citalopram 2021-0 Yes [id number] 40mg Take 1 [facility] 40 mg 4-29 tablet by [facility] tablet 00:00: mouth daily. [facility] pregabalin 2021-0 Yes [id number] 150mg Take 1 [facility] 150 mg 4-29 capsule by [facility] capsule 00:00: mouth (three) [facility] times [facility] daily. busPIRone 2-0 Yes [id number] 20mg Take 2 [facility] 10 mg 4-29 tablets by [facility] tablet 00:00: mouth (two) [facility] times [facility] daily. citalopram 2021-0 Yes [id number] 40mg Take 1 [facility] 40 mg 4-29 tablet by [facility] tablet 00:00: mouth 00 daily. [facility] pregabalin 2021-0 Yes [id number] 150mg Take 1 [facility] 150 mg 4-29 capsule by [facility] capsule 00:00: mouth 3 (three) [facility] times [facility] daily. busPIRone 2021-0 Yes [id number] 20mg Take 2 [facility] 10 mg 4-29 tablets by [facility] tablet 00:00: mouth (two) [facility] times [facility] daily. citalopram 2021-0 Yes [id number] 40mg Take 1 [facility] 40 mg 4-29 tablet by [facility] tablet 00:00: mouth 00 daily. [facility] pregabalin 2021-0 Yes [id number] 150mg Take 1 [facility] 150 mg 4-29 capsule by [facility] capsule 00:00: mouth (three) [facility] times [facility] daily. busPIRone 2021-0 Yes [id number] 20mg Take 2 [facility] 10 mg 4-29 tablets by [facility] tablet 00:00: mouth (two) [facility] times [facility] daily. citalopram 2021-0 Yes [id number] 40mg Take 1 [facility] 40 mg 4-29 tablet by [facility] tablet 00:00: mouth 00 daily. [facility] pregabalin 2021-0 Yes [id number] 150mg Take 1 [facility] 150 mg 4-29 capsule by [facility] capsule 00:00: mouth 3 (three) [facility] times [facility] daily. busPIRone 2021-0 Yes [id number] 20mg Take 2 [facility] 10 mg 4-29 tablets by [facility] tablet 00:00: mouth (two) [facility] times [facility] daily. citalopram 2021-0 Yes [id number] 40mg Take 1 [facility] 40 mg 4-29 tablet by [facility] tablet 00:00: mouth 00 daily. [facility] pregabalin 2021-0 Yes [id number] 150mg Take 1 [facility] 150 mg 4-29 capsule by [facility] capsule 00:00: mouth 3 (three) [facility] times [facility] daily. busPIRone 2021-0 Yes [id number] 20mg Take 2 [facility] 10 mg 4-29 tablets by [facility] tablet 00:00: mouth (two) [facility] times [facility] daily. citalopram 2021-0 Yes [id number] 40mg Take 1 [facility] 40 mg 4-29 tablet by [facility] tablet 00:00: mouth 00 daily. [facility] pregabalin 2021-0 Yes [id number] 150mg Take 1 [facility] 150 mg 4-29 capsule by [facility] capsule 00:00: mouth (three) [facility] times [facility] daily. busPIRone 2021-0 Yes [id number] 20mg Take 2 [facility] 10 mg 4-29 tablets by [facility] tablet 00:00: mouth (two) [facility] times [facility] daily. citalopram 2021-0 Yes [id number] 40mg Take 1 [facility] 40 mg 4-29 tablet by [facility] tablet 00:00: mouth daily. [facility] pregabalin 2021-0 Yes [id number] 150mg Take 1 [facility] 150 mg 4-29 capsule by [facility] capsule 00:00: mouth (three) [facility] times [facility] daily. busPIRone 2021-0 Yes [id number] 20mg Take 2 [facility] 10 mg 4-29 tablets by [facility] tablet 00:00: mouth (two) [facility] times [facility] daily. citalopram 2021-0 Yes [id number] 40mg Take 1 [facility] 40 mg 4-29 tablet by [facility] tablet 00:00: mouth daily. [facility] pregabalin 2021-0 Yes [id number] 150mg Take 1 [facility] 150 mg 4-29 capsule by [facility] capsule 00:00: mouth (three) [facility] times [facility] daily. busPIRone 2021-0 Yes [id number] 20mg Take 2 [facility] 10 mg 4-29 tablets by [facility] tablet 00:00: mouth (two) [facility] times [facility] daily. citalopram 2021-0 Yes [id number] 40mg Take 1 [facility] 40 mg 4-29 tablet by [facility] tablet 00:00: mouth 00 daily. [facility] pregabalin 2021-0 Yes [id number] 150mg Take 1 [facility] 150 mg 4-29 capsule by [facility] capsule 00:00: mouth 3 (three) [facility] times [facility] daily. busPIRone 2021-0 Yes [id number] 20mg Take 2 [facility] 10 mg 4-29 tablets by [facility] tablet 00:00: mouth (two) [facility] times [facility] daily. citalopram 2021-0 Yes [id number] 40mg Take 1 [facility] 40 mg 4-29 tablet by [facility] tablet 00:00: mouth 00 daily. [facility] pregabalin 2021-0 Yes [id number] 150mg Take 1 [facility] 150 mg 4-29 capsule by [facility] capsule 00:00: mouth 3 (three) [facility] times [facility] daily. busPIRone 2021-0 Yes [id number] 20mg Take 2 [facility] 10 mg 4-29 tablets by [facility] tablet 00:00: mouth (two) [facility] times [facility] daily. citalopram 2021-0 Yes [id number] 40mg Take 1 [facility] 40 mg 4-29 tablet by [facility] tablet 00:00: mouth daily. [facility] pregabalin 2021-0 Yes [id number] 150mg Take 1 [facility] 150 mg 4-29 capsule by [facility] capsule 00:00: mouth (three) [facility] times [facility] daily. busPIRone 2021-0 Yes [id number] 20mg Take 2 [facility] 10 mg 4-29 tablets by [facility] tablet 00:00: mouth (two) [facility] times [facility] daily. citalopram 2021-0 Yes [id number] 40mg Take 1 [facility] 40 mg 4-29 tablet by [facility] tablet 00:00: mouth daily. [facility] pregabalin 2021-0 Yes [id number] 150mg Take 1 [facility] 150 mg 4-29 capsule by [facility] capsule 00:00: mouth 3 (three) [facility] times [facility] daily. busPIRone 2-0 Yes [id number] 20mg Take 2 [facility] 10 mg 4-29 tablets by [facility] tablet 00:00: mouth (two) [facility] times [facility] daily. citalopram 2-0 Yes [id number] 40mg Take 1 [facility] 40 mg 4-29 tablet by [facility] tablet 00:00: mouth 00 daily. [facility] pregabalin 2021-0 Yes [id number] 150mg Take 1 [facility] 150 mg 4-29 capsule by [facility] capsule 00:00: mouth (three) [facility] times [facility] daily. busPIRone 2-0 Yes [id number] 20mg Take 2 [facility] 10 mg 4-29 tablets by [facility] tablet 00:00: mouth (two) [facility] times [facility] daily. citalopram 2021-0 Yes [id number] 40mg Take 1 [facility] 40 mg 4-29 tablet by [facility] tablet 00:00: mouth daily. [facility] pregabalin 2021-0 Yes [id number] 150mg Take 1 [facility] 150 mg 4-29 capsule by [facility] capsule 00:00: mouth (three) [facility] times [facility] daily. busPIRone 2021-0 Yes [id number] 20mg Take 2 [facility] 10 mg 4-29 tablets by [facility] tablet 00:00: mouth (two) [facility] times [facility] daily. citalopram 2021-0 Yes [id number] 40mg Take 1 [facility] 40 mg 4-29 tablet by [facility] tablet 00:00: mouth daily. [facility] pregabalin 2021-0 Yes [id number] 150mg Take 1 [facility] 150 mg 4-29 capsule by [facility] capsule 00:00: mouth (three) [facility] times [facility] daily. busPIRone 2021-0 Yes [id number] 20mg Take 2 [facility] 10 mg 4-29 tablets by [facility] tablet 00:00: mouth (two) [facility] times [facility] daily. citalopram 2021-0 Yes [id number] 40mg Take 1 [facility] 40 mg 4-29 tablet by [facility] tablet 00:00: mouth daily. [facility] pregabalin 2021-0 Yes [id number] 150mg Take 1 [facility] 150 mg 4-29 capsule by [facility] capsule 00:00: mouth (three) [facility] times [facility] daily. busPIRone 2-0 Yes [id number] 20mg Take 2 [facility] 10 mg 4-29 tablets by [facility] tablet 00:00: mouth (two) [facility] times [facility] daily. citalopram 2021-0 Yes [id number] 40mg Take 1 [facility] 40 mg 4-29 tablet by [facility] tablet 00:00: mouth 00 daily. [facility] pregabalin 2021-0 Yes [id number] 150mg Take 1 [facility] 150 mg 4-29 capsule by [facility] capsule 00:00: mouth 3 (three) [facility] times [facility] daily. busPIRone 2021-0 Yes [id number] 20mg Take 2 [facility] 10 mg 4-29 tablets by [facility] tablet 00:00: mouth 2 (two) [facility] times [facility] daily. citalopram 2021-0 Yes [id number] 40mg Take 1 [facility] 40 mg 4-29 tablet by [facility] tablet 00:00: mouth 00 daily. [facility] pregabalin 2021-0 Yes [id number] 150mg Take 1 [facility] 150 mg 4-29 capsule by [facility] capsule 00:00: mouth 3 (three) [facility] times [facility] daily. busPIRone 2021-0 Yes [id number] 20mg Take 2 [facility] 10 mg 4-29 tablets by [facility] tablet 00:00: mouth (two) [facility] times [facility] daily. citalopram 2021-0 Yes [id number] 40mg Take 1 [facility] 40 mg 4-29 tablet by [facility] tablet 00:00: mouth 00 daily. [facility] pregabalin 2021-0 Yes [id number] 150mg Take 1 [facility] 150 mg 4-29 capsule by [facility] capsule 00:00: mouth 3 (three) [facility] times [facility] daily. busPIRone 2021-0 Yes [id number] 20mg Take 2 [facility] 10 mg 4-29 tablets by [facility] tablet 00:00: mouth (two) [facility] times [facility] daily. citalopram 2021-0 Yes [id number] 40mg Take 1 [facility] 40 mg 4-29 tablet by [facility] tablet 00:00: mouth 00 daily. [facility] pregabalin 2021-0 Yes [id number] 150mg Take 1 [facility] 150 mg 4-29 capsule by [facility] capsule 00:00: mouth 3 (three) [facility] times [facility] daily. busPIRone 2021-0 Yes [id number] 20mg Take 2 [facility] 10 mg 4-29 tablets by [facility] tablet 00:00: mouth (two) [facility] times [facility] daily. citalopram 2021-0 Yes [id number] 40mg Take 1 [facility] 40 mg 4-29 tablet by [facility] tablet 00:00: mouth 00 daily. [facility] pregabalin 2021-0 Yes [id number] 150mg Take 1 [facility] 150 mg 4-29 capsule by [facility] capsule 00:00: mouth (three) [facility] times [facility] daily. busPIRone 2021-0 Yes [id number] 20mg Take 2 [facility] 10 mg 4-29 tablets by [facility] tablet 00:00: mouth (two) [facility] times [facility] daily. citalopram 2021-0 Yes [id number] 40mg Take 1 [facility] 40 mg 4-29 tablet by [facility] tablet 00:00: mouth 00 daily. [facility] pregabalin 2021-0 Yes [id number] 150mg Take 1 [facility] 150 mg 4-29 capsule by [facility] capsule 00:00: mouth (three) [facility] times [facility] daily. busPIRone 2021-0 Yes [id number] 20mg Take 2 [facility] 10 mg 4-29 tablets by [facility] tablet 00:00: mouth (two) [facility] times [facility] daily. citalopram 2021-0 Yes [id number] 40mg Take 1 [facility] 40 mg 4-29 tablet by [facility] tablet 00:00: mouth daily. [facility] pregabalin 2021-0 Yes [id number] 150mg Take 1 [facility] 150 mg 4-29 capsule by [facility] capsule 00:00: mouth (three) [facility] times [facility] daily. busPIRone 2021-0 Yes [id number] 20mg Take 2 [facility] 10 mg 4-29 tablets by [facility] tablet 00:00: mouth (two) [facility] times [facility] daily. citalopram 2021-0 Yes [id number] 40mg Take 1 [facility] 40 mg 4-29 tablet by [facility] tablet 00:00: mouth 00 daily. [facility] pregabalin 2021-0 Yes [id number] 150mg Take 1 [facility] 150 mg 4-29 capsule by [facility] capsule 00:00: mouth 3 [place] 00 (three) Medical times [facility] daily. busPIRone Yes [id number] 20mg Take 2 [facility] 10 mg 4-29 tablets by [facility] tablet 00:00: mouth 2 [place] 00 (two) Medical times [facility] daily. citalopram Yes [id number] 40mg Take 1 [facility] 40 mg 4-29 tablet by [facility] tablet 00:00: mouth [place] 00 daily. [facility] citalopram Yes [id number] 40mg Take 1 [facility] 40 mg 4-29 tablet by [facility] tablet 00:00: mouth [place] 00 daily. [facility] citalopram Yes [id number] 40mg Take 1 [facility] 40 mg 4-29 tablet by [facility] tablet 00:00: mouth [place] 00 daily. [facility] citalopram Yes [id number] 40mg Take 1 [facility] 40 mg 4-29 tablet by [facility] tablet 00:00: mouth [place] 00 daily. [facility] citalopram Yes [id number] 40mg Take 1 [facility] 40 mg 4-29 tablet by [facility] tablet 00:00: mouth [place] 00 daily. [facility] citalopram Yes [id number] 40mg Take 1 [facility] 40 mg 4-29 tablet by [facility] tablet 00:00: mouth [place] 00 daily. [facility] citalopram Yes [id number] 40mg Take 1 [facility] 40 mg 4-29 tablet by [facility] tablet 00:00: mouth [place] 00 daily. [facility] citalopram 0 Yes [id number] 40mg Take 1 [facility] 40 mg 4-29 tablet by [facility] tablet 00:00: mouth [place] 00 daily. [facility] citalopram 0 Yes [id number] 40mg Take 1 [facility] 40 mg 4-29 tablet by [facility] tablet 00:00: mouth [place] 00 daily. [facility] citalopram 0 Yes [id number] 40mg Take 1 [facility] 40 mg 4-29 tablet by [facility] tablet 00:00: mouth [place] 00 daily. [facility] citalopram 0 Yes [id number] 40mg Take 1 [facility] 40 mg 4-29 tablet by [facility] tablet 00:00: mouth [place] 00 daily. [facility] citalopram 0 Yes [id number] 40mg Take 1 [facility] 40 mg 4-29 tablet by [facility] tablet 00:00: mouth [place] 00 daily. [facility] citalopram 0 Yes [id number] 40mg Take 1 [facility] 40 mg 4-29 tablet by [facility] tablet 00:00: mouth [place] 00 daily. [facility] citalopram 0 Yes [id number] 40mg Take 1 [facility] 40 mg 4-29 tablet by [facility] tablet 00:00: mouth [place] 00 daily. [facility] citalopram 0 Yes [id number] 40mg Take 1 [facility] 40 mg 4-29 tablet by [facility] tablet 00:00: mouth [place] 00 daily. [facility] citalopram Yes [id number] 40mg Take 1 [facility] 40 mg 4-29 tablet by [facility] tablet 00:00: mouth [place] 00 daily. [facility] citalopram Yes [id number] 40mg Take 1 [facility] 40 mg 4-29 tablet by [facility] tablet 00:00: mouth [place] 00 daily. [facility] citalopram 0 Yes [id number] 40mg Take 1 [facility] 40 mg 4-29 tablet by [facility] tablet 00:00: mouth [place] 00 daily. [facility] citalopram Yes [id number] 40mg Take 1 [facility] 40 mg 4-29 tablet by [facility] tablet 00:00: mouth [place] 00 daily. [facility] citalopram 0 Yes [id number] 40mg Take 1 [facility] 40 mg 4-29 tablet by [facility] tablet 00:00: mouth [place] 00 daily. [facility] citalopram 0 Yes [id number] 40mg Take 1 [facility] 40 mg 4-29 tablet by [facility] tablet 00:00: mouth [place] 00 daily. [facility] citalopram 0 Yes [id number] 40mg Take 1 [facility] 40 mg 4-29 tablet by [facility] tablet 00:00: mouth [place] 00 daily. [facility] citalopram 0 Yes [id number] 40mg Take 1 [facility] 40 mg 4-29 tablet by [facility] tablet 00:00: mouth [place] 00 daily. [facility] citalopram 0 Yes [id number] 40mg Take 1 [facility] 40 mg 4-29 tablet by [facility] tablet 00:00: mouth [place] 00 daily. [facility] citalopram 0 Yes [id number] 40mg Take 1 [facility] 40 mg 4-29 tablet by [facility] tablet 00:00: mouth [place] 00 daily. [facility] citalopram 0 Yes [id number] 40mg Take 1 [facility] 40 mg 4-29 tablet by [facility] tablet 00:00: mouth [place] 00 daily. [facility] citalopram 0 Yes [id number] 40mg Take 1 [facility] 40 mg 4-29 tablet by [facility] tablet 00:00: mouth [place] 00 daily. [facility] citalopram 0 Yes [id number] 40mg Take 1 [facility] 40 mg 4-29 tablet by [facility] tablet 00:00: mouth [place] 00 daily. [facility] citalopram 0 Yes [id number] 40mg Take 1 [facility] 40 mg 4-29 tablet by [facility] tablet 00:00: mouth [place] 00 daily. [facility] citalopram 0 Yes [id number] 40mg Take 1 [facility] 40 mg 4-29 tablet by [facility] tablet 00:00: mouth [place] 00 daily. [facility] citalopram 0 Yes [id number] 40mg Take 1 [facility] 40 mg 4-29 tablet by [facility] tablet 00:00: mouth [place] 00 daily. [facility] citalopram 0 Yes [id number] 40mg Take 1 [facility] 40 mg 4-29 tablet by [facility] tablet 00:00: mouth [place] 00 daily. [facility] citalopram 0 Yes [id number] 40mg Take 1 [facility] 40 mg 4-29 tablet by [facility] tablet 00:00: mouth [place] 00 daily. [facility] citalopram 0 Yes [id number] 40mg Take 1 [facility] 40 mg 4-29 tablet by [facility] tablet 00:00: mouth [place] 00 daily. [facility] citalopram 2022-0 Yes [id number] 40mg Take 1 [facility] 40 mg 4-29 tablet by [facility] tablet 00:00: mouth [place] 00 daily. [facility] citalopram 0 Yes [id number] 40mg Take 1 [facility] 40 mg 4-29 tablet by [facility] tablet 00:00: mouth [place] 00 daily. [facility] citalopram 0 Yes [id number] 40mg Take 1 [facility] 40 mg 4-29 tablet by [facility] tablet 00:00: mouth [place] 00 daily. [facility] citalopram 0 Yes [id number] 40mg Take 1 [facility] 40 mg 4-29 tablet by [facility] tablet 00:00: mouth [place] 00 daily. [facility] citalopram 0 Yes [id number] 40mg Take 1 [facility] 40 mg 4-29 tablet by [facility] tablet 00:00: mouth [place] 00 daily. [facility] citalopram 0 Yes [id number] 40mg Take 1 [facility] 40 mg 4-29 tablet by [facility] tablet 00:00: mouth [place] 00 daily. [facility] citalopram 0 Yes [id number] 40mg Take 1 [facility] 40 mg 4-29 tablet by [facility] tablet 00:00: mouth [place] 00 daily. [facility] citalopram 0 Yes [id number] 40mg Take 1 [facility] 40 mg 4-29 tablet by [facility] tablet 00:00: mouth [place] 00 daily. [facility] citalopram 0 Yes [id number] 40mg Take 1 [facility] 40 mg 4-29 tablet by [facility] tablet 00:00: mouth [place] 00 daily. [facility] citalopram 0 Yes [id number] 40mg Take 1 [facility] 40 mg 4-29 tablet by [facility] tablet 00:00: mouth [place] 00 daily. [facility] citalopram 0 Yes [id number] 40mg Take 1 [facility] 40 mg 4-29 tablet by [facility] tablet 00:00: mouth [place] 00 daily. [facility] citalopram 0 Yes [id number] 40mg Take 1 [facility] 40 mg 4-29 tablet by [facility] tablet 00:00: mouth [place] 00 daily. [facility] citalopram 2022-0 Yes [id number] 40mg Take 1 [facility] 40 mg 4-29 tablet by [facility] tablet 00:00: mouth [place] 00 daily. [facility] citalopram 0 Yes [id number] 40mg Take 1 [facility] 40 mg 4-29 tablet by [facility] tablet 00:00: mouth [place] 00 daily. [facility] citalopram 0 Yes [id number] 40mg Take 1 [facility] 40 mg 4-29 tablet by [facility] tablet 00:00: mouth [place] 00 daily. [facility] citalopram 0 Yes [id number] 40mg Take 1 [facility] 40 mg 4-29 tablet by [facility] tablet 00:00: mouth [place] 00 daily. [facility] citalopram 0 Yes [id number] 40mg Take 1 [facility] 40 mg 4-29 tablet by [facility] tablet 00:00: mouth [place] 00 daily. [facility] citalopram 0 Yes [id number] 40mg Take 1 [facility] 40 mg 4-29 tablet by [facility] tablet 00:00: mouth [place] 00 daily. [facility] citalopram 0 Yes [id number] 40mg Take 1 [facility] 40 mg 4-29 tablet by [facility] tablet 00:00: mouth [place] 00 daily. [facility] citalopram Yes [id number] 40mg Take 1 [facility] 40 mg 4-29 tablet by [facility] tablet 00:00: mouth [place] 00 daily. [facility] citalopram 0 Yes [id number] 40mg Take 1 [facility] 40 mg 4-29 tablet by [facility] tablet 00:00: mouth [place] 00 daily. [facility] citalopram 0 Yes [id number] 40mg Take 1 [facility] 40 mg 4-29 tablet by [facility] tablet 00:00: mouth [place] 00 daily. [facility] citalopram 0 Yes [id number] 40mg Take 1 [facility] 40 mg 4-29 tablet by [facility] tablet 00:00: mouth [place] 00 daily. [facility] citalopram 0 Yes [id number] 40mg Take 1 [facility] 40 mg 4-29 tablet by [facility] tablet 00:00: mouth [place] 00 daily. [facility] citalopram Yes [id number] 40mg Take 1 [facility] 40 mg 4-29 tablet by [facility] tablet 00:00: mouth [place] 00 daily. [facility] citalopram 0 Yes [id number] 40mg Take 1 [facility] 40 mg 4-29 tablet by [facility] tablet 00:00: mouth [place] 00 daily. [facility] citalopram 0 Yes [id number] 40mg Take 1 [facility] 40 mg 4-29 tablet by [facility] tablet 00:00: mouth [place] 00 daily. [facility] citalopram 0 Yes [id number] 40mg Take 1 [facility] 40 mg 4-29 tablet by [facility] tablet 00:00: mouth [place] 00 daily. [facility] citalopram 0 Yes [id number] 40mg Take 1 [facility] 40 mg 4-29 tablet by [facility] tablet 00:00: mouth [place] 00 daily. [facility] citalopram 0 Yes [id number] 40mg Take 1 [facility] 40 mg 4-29 tablet by [facility] tablet 00:00: mouth [place] 00 daily. [facility] citalopram 0 Yes [id number] 40mg Take 1 [facility] 40 mg 4-29 tablet by [facility] tablet 00:00: mouth [place] 00 daily. [facility] citalopram Yes [id number] 40mg Take 1 [facility] 40 mg 4-29 tablet by [facility] tablet 00:00: mouth [place] 00 daily. [facility] citalopram 0 Yes [id number] 40mg Take 1 [facility] 40 mg 4-29 tablet by [facility] tablet 00:00: mouth [place] 00 daily. [facility] citalopram 0 Yes [id number] 40mg Take 1 [facility] 40 mg 4-29 tablet by [facility] tablet 00:00: mouth [place] 00 daily. [facility] citalopram 0 Yes [id number] 40mg Take 1 [facility] 40 mg 4-29 tablet by [facility] tablet 00:00: mouth [place] 00 daily. [facility] citalopram 0 Yes [id number] 40mg Take 1 [facility] 40 mg 4-29 tablet by [facility] tablet 00:00: mouth [place] 00 daily. [facility] citalopram 2021-0 Yes [id number] 40mg Take 1 [facility] 40 mg 4-29 tablet by [facility] tablet 00:00: mouth 00 daily. [facility] citalopram 2021-0 Yes [id number] 40mg Take 1 [facility] 40 mg 4-29 tablet by [facility] tablet 00:00: mouth 00 daily. [facility] pregabalin 2021-0 Yes [id number] 150mg Take 1 [facility] 150 mg 4-29 capsule by [facility] capsule 00:00: mouth 3 (three) [facility] times [facility] daily. busPIRone 2021-0 Yes [id number] 20mg Take 2 [facility] 10 mg 4-29 tablets by [facility] tablet 00:00: mouth (two) [facility] times [facility] daily. citalopram 2021-0 Yes [id number] 40mg Take 1 [facility] 40 mg 4-29 tablet by [facility] tablet 00:00: mouth 00 daily. [facility] pregabalin 2021-0 Yes [id number] 150mg Take 1 [facility] 150 mg 4-29 capsule by [facility] capsule 00:00: mouth 3 (three) [facility] times [facility] daily. busPIRone 2021-0 Yes [id number] 20mg Take 2 [facility] 10 mg 4-29 tablets by [facility] tablet 00:00: mouth (two) [facility] times [facility] daily. citalopram 2021-0 Yes [id number] 40mg Take 1 [facility] 40 mg 4-29 tablet by [facility] tablet 00:00: mouth daily. [facility] pregabalin 2021-0 Yes [id number] 150mg Take 1 [facility] 150 mg 4-29 capsule by [facility] capsule 00:00: mouth 3 (three) [facility] times [facility] daily. busPIRone 2021-0 Yes [id number] 20mg Take 2 [facility] 10 mg 4-29 tablets by [facility] tablet 00:00: mouth 2 (two) [facility] times [facility] daily. citalopram 2021-0 Yes [id number] 40mg Take 1 [facility] 40 mg 4-29 tablet by [facility] tablet 00:00: mouth 00 daily. [facility] pregabalin 2021-0 Yes [id number] 150mg Take 1 [facility] 150 mg 4-29 capsule by [facility] capsule 00:00: mouth 3 (three) [facility] times [facility] daily. busPIRone 2021-0 Yes [id number] 20mg Take 2 [facility] 10 mg 4-29 tablets by [facility] tablet 00:00: mouth (two) [facility] times [facility] daily. citalopram 2021-0 Yes [id number] 40mg Take 1 [facility] 40 mg 4-29 tablet by [facility] tablet 00:00: mouth daily. [facility] pregabalin 2021-0 Yes [id number] 150mg Take 1 [facility] 150 mg 4-29 capsule by [facility] capsule 00:00: mouth (three) [facility] times [facility] daily. busPIRone 2021-0 Yes [id number] 20mg Take 2 [facility] 10 mg 4-29 tablets by [facility] tablet 00:00: mouth (two) [facility] times [facility] daily. citalopram 2021-0 Yes [id number] 40mg Take 1 [facility] 40 mg 4-29 tablet by [facility] tablet 00:00: mouth daily. [facility] pregabalin 2021-0 Yes [id number] 150mg Take 1 [facility] 150 mg 4-29 capsule by [facility] capsule 00:00: mouth (three) [facility] times [facility] daily. busPIRone 2021-0 Yes [id number] 20mg Take 2 [facility] 10 mg 4-29 tablets by [facility] tablet 00:00: mouth (two) [facility] times [facility] daily. citalopram 2021-0 Yes [id number] 40mg Take 1 [facility] 40 mg 4-29 tablet by [facility] tablet 00:00: mouth daily. [facility] pregabalin 2021-0 Yes [id number] 150mg Take 1 [facility] 150 mg 4-29 capsule by [facility] capsule 00:00: mouth (three) [facility] times [facility] daily. busPIRone 2-0 Yes [id number] 20mg Take 2 [facility] 10 mg 4-29 tablets by [facility] tablet 00:00: mouth (two) [facility] times [facility] daily. citalopram 2021-0 Yes [id number] 40mg Take 1 [facility] 40 mg 4-29 tablet by [facility] tablet 00:00: mouth 00 daily. [facility] pregabalin 2021-0 Yes [id number] 150mg Take 1 [facility] 150 mg 4-29 capsule by [facility] capsule 00:00: mouth 3 (three) [facility] times [facility] daily. busPIRone 2021-0 Yes [id number] 20mg Take 2 [facility] 10 mg 4-29 tablets by [facility] tablet 00:00: mouth (two) [facility] times [facility] daily. citalopram 2021-0 Yes [id number] 40mg Take 1 [facility] 40 mg 4-29 tablet by [facility] tablet 00:00: mouth 00 daily. [facility] pregabalin 2021-0 Yes [id number] 150mg Take 1 [facility] 150 mg 4-29 capsule by [facility] capsule 00:00: mouth (three) [facility] times [facility] daily. busPIRone 2021-0 Yes [id number] 20mg Take 2 [facility] 10 mg 4-29 tablets by [facility] tablet 00:00: mouth (two) [facility] times [facility] daily. citalopram 2021-0 Yes [id number] 40mg Take 1 [facility] 40 mg 4-29 tablet by [facility] tablet 00:00: mouth daily. [facility] pregabalin 2021-0 Yes [id number] 150mg Take 1 [facility] 150 mg 4-29 capsule by [facility] capsule 00:00: mouth (three) [facility] times [facility] daily. busPIRone 2021-0 Yes [id number] 20mg Take 2 [facility] [place] 10 mg 4-29 tablets by [facility] tablet 00:00: mouth (two) [facility] times [facility] daily. citalopram 2021-0 Yes [id number] 40mg Take 1 [facility] 40 mg 4-29 tablet by [facility] tablet 00:00: mouth daily. [facility] pregabalin 2021-0 Yes [id number] 150mg Take 1 [facility] 150 mg 4-29 capsule by [facility] capsule 00:00: mouth 3 (three) [facility] times [facility] daily. busPIRone 2-0 Yes [id number] 20mg Take 2 [facility] 10 mg 4-29 tablets by [facility] tablet 00:00: mouth 2 [place] 00 (two) Medical times [facility] daily. citalopram Yes [id number] 40mg Take 1 [facility] 40 mg 4-29 tablet by [facility] tablet 00:00: mouth [place] 00 daily. [facility] pregabalin 2021- No [id number] 150mg Take 1 [facility] 150 mg 4-29 10-13 capsule by [facility] capsule 00:00: 00:00 mouth 3 [place] 00 :00 (three) Medical times [facility] daily. busPIRone 2021- No [id number] 20mg Take 2 [facility] 10 mg 4-29 10-13 tablets by [facility] tablet 00:00: 00:00 mouth 2 [place] 00 :00 (two) Medical times [facility] daily. pantoprazol Yes [id number] 40mg Take 1 [facility] 40 mg EC 4-04 tablet by [facility] tablet 00:00: mouth [place] 00 daily. [facility] pantoprazol Yes [id number] 40mg Take 1 [facility] 40 mg EC 4-04 tablet by [facility] tablet 00:00: mouth [place] 00 daily. [facility] pantoprazol Yes [id number] 40mg Take 1 [facility] 40 mg EC 4-04 tablet by [facility] tablet 00:00: mouth [place] 00 daily. [facility] pantoprazol Yes [id number] 40mg Take 1 [facility] 40 mg EC 4-04 tablet by [facility] of tablet 00:00: mouth [place] 00 daily. [facility] pantoprazol Yes [id number] 40mg Take 1 [facility] e 40 mg EC 4-04 tablet by [facility]y of tablet 00:00: mouth [place] 00 daily. [facility] pantoprazol Yes [id number] 40mg Take 1 [facility] e 40 mg EC 4-04 tablet by ity of tablet 00:00: mouth [place] 00 daily. [facility] pantoprazol Yes [id number] 40mg Take 1 [facility] e 40 mg EC 4-04 tablet by ity of tablet 00:00: mouth [place] 00 daily. [facility] pantoprazol Yes [id number] 40mg Take 1 [facility] e 40 mg EC 4-04 tablet by [facility]y of tablet 00:00: mouth [place] 00 daily. [facility] pantoprazol Yes [id number] 40mg Take 1 [facility] e 40 mg EC 4-04 tablet by [facility]y of tablet 00:00: mouth [place] 00 daily. [facility] pantoprazol 2021-0 Yes [id number] 40mg Take 1 [facility] 40 mg EC 4-04 tablet by [facility]y of tablet 00:00: mouth [place] 00 daily. [facility] pantoprazol 2021-0 Yes [id number] 40mg Take 1 [facility] e 40 mg EC 4-04 tablet by [facility]y of tablet 00:00: mouth [place] 00 daily. [facility] pantoprazol 2021-0 Yes [id number] 40mg Take 1 [facility] e 40 mg EC 4-04 tablet by [facility]y of tablet 00:00: mouth [place] 00 daily. [facility] pantoprazol 2021- Yes [id number] 40mg Take 1 [facility] e 40 mg EC 4-04 tablet by [facility]y of tablet 00:00: mouth [place] 00 daily. [facility] pantoprazol 2021- Yes [id number] 40mg Take 1 [facility] e 40 mg EC 4-04 tablet by [facility]y of tablet 00:00: mouth [place] 00 daily. [facility] pantoprazol 2021- Yes [id number] 40mg Take 1 [facility] e 40 mg EC 4-04 tablet by [facility]y of tablet 00:00: mouth [place] 00 daily. [facility] pantoprazol 2021- Yes [id number] 40mg Take 1 [facility] e 40 mg EC 4-04 tablet by [facility]y of tablet 00:00: mouth [place] 00 daily. [facility] pantoprazol 2021- Yes [id number] 40mg Take 1 [facility] 40 mg EC 4-04 tablet by [facility]y of tablet 00:00: mouth [place] 00 daily. [facility] pantoprazol 2021-0 Yes [id number] 40mg Take 1 [facility] 40 mg EC 4-04 tablet by [facility]y of tablet 00:00: mouth [place] 00 daily. [facility] pantoprazol 2021-0 Yes [id number] 40mg Take 1 [facility] 40 mg EC 4-04 tablet by [facility] of tablet 00:00: mouth [place] 00 daily. [facility] pantoprazol 2021-0 Yes [id number] 40mg Take 1 [facility] 40 mg EC 4-04 tablet by [facility]y of tablet 00:00: mouth [place] 00 daily. [facility] pantoprazol 2021-0 Yes [id number] 40mg Take 1 [facility] 40 mg EC 4-04 tablet by [facility]y of tablet 00:00: mouth [place] 00 daily. [facility] pantoprazol 2021-0 Yes [id number] 40mg Take 1 [facility] 40 mg EC 4-04 tablet by [facility]y of tablet 00:00: mouth [place] 00 daily. [facility] pantoprazol 0 Yes [id number] 40mg Take 1 [facility] 40 mg EC 4-04 tablet by [facility]y of tablet 00:00: mouth [place] 00 daily. [facility] pantoprazol 0 Yes [id number] 40mg Take 1 [facility] 40 mg EC 4-04 tablet by [facility]y of tablet 00:00: mouth [place] 00 daily. [facility] pantoprazol 0 Yes [id number] 40mg Take 1 [facility] 40 mg EC 4-04 tablet by [facility]y of tablet 00:00: mouth [place] 00 daily. [facility] pantoprazol 0 Yes [id number] 40mg Take 1 [facility] 40 mg EC 4-04 tablet by [facility]y of tablet 00:00: mouth [place] 00 daily. [facility] pantoprazol 0 Yes [id number] 40mg Take 1 [facility] 40 mg EC 4-04 tablet by ity of tablet 00:00: mouth [place] 00 daily. [facility] pantoprazol 0 Yes [id number] 40mg Take 1 [facility] 40 mg EC 4-04 tablet by ity of tablet 00:00: mouth [place] 00 daily. [facility] pantoprazol 0 Yes [id number] 40mg Take 1 [facility] 40 mg EC 4-04 tablet by ity of tablet 00:00: mouth [place] 00 daily. [facility] pantoprazol 0 Yes [id number] 40mg Take 1 [facility] 40 mg EC 4-04 tablet by [facility]y of tablet 00:00: mouth [place] 00 daily. [facility] pantoprazol 0 2021- No [id number] 40mg Take 1 [facility] 40 mg EC 4-04 -16 tablet by ity of tablet 00:00: 00:00 mouth [place] 00 :00 daily. [facility] pantoprazol 0 2021- No [id number] 40mg Take 1 [facility] 40 mg EC 4-04 -16 tablet by ity of tablet 00:00: 00:00 mouth [place] 00 :00 daily. [facility] Blood-Gluco 2021-0 Yes [id number] Use twice [facility] se Meter 3-08 a day for ity of (ONETOUCH 00:00: [place] VERIO FLEX E11. Medical START) [facility] Blood-Gluco 2022-0 Yes [id number] Use twice [facility] se Meter 3-08 a day for ity of (ONETOUCH 00:00: [place] VERIO FLEX E11 Medical START) [facility] Blood-Gluco 2022-0 Yes [id number] Use twice [facility] se M[facility] 3-08 a day for ity of (ONETOUCH 00:00: [place] VERIO FLEX [facility] START) [facility] Blood-Gluco 2022-0 Yes [id number] Use twice [facility] se Meter 3-08 a day for ity of (ONETOUCH 00:00: [place] VERIO FLEX [facility] START) [facility] Blood-Gluco 2022-0 Yes [id number] Use twice [facility] se M[facility] 3-08 a day for ity of (ONETOUCH 00:00: [place] VERIO FLEX [facility] START) [facility] Blood-Gluco 2022-0 Yes [id number] Use twice [facility] se M[facility] 3-08 a day for ity of (ONETOUCH 00:00: [place] VERIO FLEX . Medical START) [facility] Blood-Gluco 2022-0 Yes [id number] Use twice [facility] se [facility] 3-08 a day for ity of (ONETOUCH 00:00: [place] VERIO FLEX E11. Medical START) Kit [facility] Blood-Gluco 2022-0 Yes [id number] Use twice [facility] se [facility] 3-08 a day for ity of (ONETOUCH 00:00: [place] VERIO FLEX E11.65 Medical START) Kit [facility] Blood-Gluco 2022-0 Yes [id number] Use twice [facility] se M[facility] 3-08 a day for ity of (ONETOUCH 00:00: [place] VERIO FLEX E11.65 Medical START) [facility] Blood-Gluco 2022-0 Yes [id number] Use twice [facility] se [facility] 3-08 a day for ity of (ONETOUCH 00:00: [place] VERIO FLEX Medical START) [facility] Blood-Gluco 2022-0 Yes [id number] Use twice [facility] se M[facility] 3-08 a day for ity of (ONETOUCH 00:00: [place] VERIO FLEX Medical START) [facility] Blood-Gluco 2022-0 Yes [id number] Use twice [facility] se M[facility] 3-08 a day for ity of (ONETOUCH 00:00: [place] VERIO FLEX Medical START) [facility] Blood-Gluco 2022-0 Yes [id number] Use twice [facility] se [facility] 3-08 a day for ity of (ONETOUCH 00:00: [place] VERIO FLEX Medical START) [facility] Blood-Gluco 2022-0 Yes [id number] Use twice [facility] se [facility] 3-08 a day for ity of (ONETOUCH 00:00: [place] VERIO FLEX Medical START) [facility] Blood-Gluco 2022-0 Yes [id number] Use twice [facility] se [facility] 3-08 a day for ity of (ONETOUCH 00:00: [place] VERIO FLEX Medical START) [facility] Blood-Gluco 2022-0 Yes [id number] Use twice [facility] se [facility] 3-08 a day for ity of (ONETOUCH 00:00: [place] VERIO FLEX Medical START) [facility] Blood-Gluco 2022-0 Yes [id number] Use twice [facility] se [facility] 3-08 a day for ity of (ONETOUCH 00:00: [place] VERIO FLEX Medical START) [facility] Blood-Gluco 2022-0 Yes [id number] Use twice [facility] se [facility] 3-08 a day for ity of (ONETOUCH 00:00: [place] VERIO FLEX Medical START) [facility] Blood-Gluco 2022-0 Yes [id number] Use twice [facility] se M[facility] 3-08 a day for ity of (ONETOUCH 00:00: [place] VERIO FLEX Medical START) [facility] Blood-Gluco 2022-0 Yes [id number] Use twice [facility] se M[facility] 3-08 a day for ity of (ONETOUCH 00:00: [place] VERIO FLEX Medical START) [facility] Blood-Gluco 2022-0 Yes [id number] Use twice [facility] se M[facility] 3-08 a day for ity of (ONETOUCH 00:00: [place] VERIO FLEX Medical START) [facility] Blood-Gluco 2022-0 Yes [id number] Use twice [facility] se M[facility] 3-08 a day for ity of (ONETOUCH 00:00: [place] VERIO FLEX Medical START) [facility] Blood-Gluco 2022-0 Yes [id number] Use twice [facility] se M[facility] 3-08 a day for ity of (ONETOUCH 00:00: ICD [place] VERIO FLEX Medical START) [facility] Blood-Gluco 2022-0 Yes [id number] Use twice [facility] se M[facility] 3-08 a day for ity of (ONETOUCH 00:00: [place] VERIO FLEX Medical START) [facility] Blood-Gluco 2022-0 Yes [id number] Use twice [facility] se [facility] 3-08 a day for ity of (ONETOUCH 00:00: ICD [place] VERIO FLEX Medical START) [facility] Blood-Gluco 2022-0 Yes [id number] Use twice [facility] se M[facility] 3-08 a day for ity of (ONETOUCH 00:00: [place] VERIO FLEX Medical START) [facility] Blood-Gluco 2022-0 Yes [id number] Use twice [facility] se [facility] 3-08 a day for ity of (ONETOUCH 00:00: [place] VERIO FLEX Medical START) [facility] Blood-Gluco 2022-0 Yes [id number] Use twice [facility] se [facility] 3-08 a day for ity of (ONETOUCH 00:00: [place] VERIO FLEX Medical START) [facility] Blood-Gluco 2022-0 Yes [id number] Use twice [facility] se M[facility] 3-08 a day for ity of (ONETOUCH 00:00: ICD [place] VERIO FLEX Medical START) [facility] Blood-Gluco 2022-0 Yes [id number] Use twice [facility] se M[facility] 3-08 a day for ity of (ONETOUCH 00:00: [place] VERIO FLEX Medical START) [facility] Blood-Gluco 2022-0 Yes [id number] Use twice [facility] se M[facility] 3-08 a day for ity of (ONETOUCH 00:00: [place] VERIO FLEX Medical START) [facility] Blood-Gluco 2022-0 Yes [id number] Use twice [facility] se Meter 3-08 a day for ity of (ONETOUCH 00:00: ICD [place] VERIO FLEX Medical START) [facility] Blood-Gluco 2022-0 Yes [id number] Use twice [facility] se Meter 3-08 a day for ity of (ONETOUCH 00:00: ICD [place] VERIO FLEX Medical START) [facility] Blood-Gluco 2022-0 Yes [id number] Use twice [facility] se Meter 3-08 a day for ity of (ONETOUCH 00:00: ICD [place] VERIO FLEX Medical START) [facility] Blood-Gluco 2-0 Yes [id number] Use twice [facility] se Meter 3-08 a day for ity of (ONETOUCH 00:00: ICD [place] VERIO FLEX Medical START) Kit [facility] Blood-Gluco 2022-0 Yes [id number] Use twice [facility] se M[facility] 3-08 a day for ity of (ONETOUCH 00:00: [place] VERIO FLEX Medical START) [facility] Blood-Gluco 2022-0 2022- No [id number] Use twice [facility] se Meter 3-08 -22 a day for ity o f (ONETOUCH 00:00: 00:00 ICD CODE [place] VERIO FLEX 00 : Medical START) Kit [facility] Blood-Gluco 2022-0 2022- No [id number] Use twice [facility] se Meter 3-08 -22 a day for ity o f (ONETOUCH 00:00: 00:00 ICD CODE [place] VERIO FLEX 00 : Medical START) Kit [facility] Blood-Gluco 2022-0 2022- No [id number] Use twice [facility] se Meter 3-08 -22 a day for ity o f (ONETOUCH 00:00: 00:00 ICD CODE [place] VERIO FLEX 00 :00 E11.65 Medical START) [facility] mirabegron Yes [id number] 50mg Take 1 Univers (MYRBETRIQ) 1-18 tablet by ity of 50 mg 00:00: mouth [place] tablet 00 daily. [facility] mirabegron Yes [id number] 50mg Take 1 Univers (MYRBETRIQ) 1-18 tablet by ity of 50 mg 00:00: mouth [place] tablet 00 daily. [facility] mirabegron 0 Yes [id number] 50mg Take 1 [facility] (MYRBETRIQ) 1-18 tablet by ity of 50 mg 00:00: mouth [place] tablet 00 daily. [facility] mirabegron Yes [id number] 50mg Take 1 [facility] (MYRBETRIQ) 1-18 tablet by ity of 50 mg 00:00: mouth [place] tablet 00 daily. [facility] mirabegron Yes [id number] 50mg Take 1 [facility] (MYRBETRIQ) 1-18 tablet by ity of 50 mg 00:00: mouth [place] tablet 00 daily. [facility] mirabegron Yes [id number] 50mg Take 1 [facility] (MYRBETRIQ) 1-18 tablet by ity of 50 mg 00:00: mouth [place] tablet 00 daily. [facility] mirabegron Yes [id number] 50mg Take 1 [facility] (MYRBETRIQ) 1-18 tablet by ity of 50 mg 00:00: mouth [place] tablet 00 daily. [facility] mirabegron Yes [id number] 50mg Take 1 [facility] (MYRBETRIQ) 1-18 tablet by ity of 50 mg 00:00: mouth [place] tablet 00 daily. [facility] mirabegron Yes [id number] 50mg Take 1 [facility] (MYRBETRIQ) 1-18 tablet by ity of 50 mg 00:00: mouth [place] tablet 00 daily. [facility] mirabegron Yes [id number] 50mg Take 1 [facility] (MYRBETRIQ) 1-18 tablet by ity of 50 mg 00:00: mouth [place] tablet 00 daily. [facility] mirabegron 0 Yes [id number] 50mg Take 1 [facility] (MYRBETRIQ) 1-18 tablet by ity of 50 mg 00:00: mouth [place] tablet 00 daily. [facility] mirabegron 0 Yes [id number] 50mg Take 1 [facility] (MYRBETRIQ) 1-18 tablet by ity of 50 mg 00:00: mouth [place] tablet [address] [facility] mirabegron 0 Yes [id number] 50mg Take 1 [facility] (MYRBETRIQ) 1-18 tablet by ity of 50 mg 00:00: mouth [place] tablet 00 daily. [facility] mirabegron 0 Yes [id number] 50mg Take 1 [facility] (MYRBETRIQ) 1-18 tablet by ity of 50 mg 00:00: mouth [place] tablet 00 daily. [facility] mirabegron 0 Yes [id number] 50mg Take 1 [facility] (MYRBETRIQ) 1-18 tablet by ity of 50 mg 00:00: mouth [place] tablet 00 daily. [facility] mirabegron 0 Yes [id number] 50mg Take 1 [facility] (MYRBETRIQ) 1-18 tablet by ity of 50 mg 00:00: mouth [place] tablet 00 daily. [facility] mirabegron 0 Yes [id number] 50mg Take 1 [facility] (MYRBETRIQ) 1-18 tablet by ity of 50 mg 00:00: mouth [place] tablet 00 daily. [facility] mirabegron 0 Yes [id number] 50mg Take 1 [facility] (MYRBETRIQ) 1-18 tablet by ity of 50 mg 00:00: mouth [place] tablet 00 daily. [facility] mirabegron 0 Yes [id number] 50mg Take 1 [facility] (MYRBETRIQ) 1-18 tablet by ity of 50 mg 00:00: mouth [place] tablet [address] [facility] mirabegron 0 Yes [id number] 50mg Take 1 [facility] (MYRBETRIQ) 1-18 tablet by ity of 50 mg 00:00: mouth [place] tablet 00 daily. [facility] mirabegron 2021-0 Yes [id number] 50mg Take 1 [facility] (MYRBETRIQ) 1-18 tablet by ity of 50 mg 00:00: mouth [place] tablet 00 daily. [facility] mirabegron 2021-0 Yes [id number] 50mg Take 1 [facility] (MYRBETRIQ) 1-18 tablet by ity of 50 mg 00:00: mouth [place] tablet 00 daily. [facility] mirabegron 2021-0 Yes [id number] 50mg Take 1 [facility] (MYRBETRIQ) 1-18 tablet by ity of 50 mg 00:00: mouth [place] tablet 00 daily. [facility] mirabegron 2021-0 Yes [id number] 50mg Take 1 [facility] (MYRBETRIQ) 1-18 tablet by ity of 50 mg 00:00: mouth [place] tablet 00 daily. [facility] mirabegron 0 Yes [id number] 50mg Take 1 [facility] (MYRBETRIQ) 1-18 tablet by ity of 50 mg 00:00: mouth [place] tablet 00 daily. [facility] mirabegron 0 Yes [id number] 50mg Take 1 [facility] (MYRBETRIQ) 1-18 tablet by ity of 50 mg 00:00: mouth [place] tablet 00 daily. [facility] mirabegron 0 Yes [id number] 50mg Take 1 [facility] (MYRBETRIQ) 1-18 tablet by ity of 50 mg 00:00: mouth [place] tablet 00 daily. [facility] mirabegron 0 Yes [id number] 50mg Take 1 [facility] (MYRBETRIQ) 1-18 tablet by ity of 50 mg 00:00: mouth [place] tablet 00 daily. [facility] mirabegron 0 Yes [id number] 50mg Take 1 [facility] (MYRBETRIQ) 1-18 tablet by ity of 50 mg 00:00: mouth [place] tablet 00 daily. [facility] mirabegron 0 Yes [id number] 50mg Take 1 [facility] (MYRBETRIQ) 1-18 tablet by ity of 50 mg 00:00: mouth [place] tablet 00 daily. [facility] mirabegron 0 Yes [id number] 50mg Take 1 [facility] (MYRBETRIQ) 1-18 tablet by ity of 50 mg 00:00: mouth [place] tablet 00 daily. [facility] mirabegron 2021-0 Yes [id number] 50mg Take 1 [facility] (MYRBETRIQ) 1-18 tablet by ity of 50 mg 00:00: mouth [place] tablet 00 daily. [facility] mirabegron 0 Yes [id number] 50mg Take 1 [facility] (MYRBETRIQ) 1-18 tablet by ity of 50 mg 00:00: mouth [place] tablet 00 daily. [facility] mirabegron 0 Yes [id number] 50mg Take 1 [facility] (MYRBETRIQ) 1-18 tablet by ity of 50 mg 00:00: mouth [place] tablet 00 daily. [facility] mirabegron 0 Yes [id number] 50mg Take 1 [facility] (MYRBETRIQ) 1-18 tablet by ity of 50 mg 00:00: mouth [place] tablet 00 daily. [facility] mirabegron 0 Yes [id number] 50mg Take 1 [facility] (MYRBETRIQ) 1-18 tablet by ity of 50 mg 00:00: mouth [place] tablet 00 daily. [facility] mirabegron 0 Yes [id number] 50mg Take 1 [facility] (MYRBETRIQ) 1-18 tablet by ity of 50 mg 00:00: mouth [place] tablet 00 daily. [facility] mirabegron 0 Yes [id number] 50mg Take 1 [facility] (MYRBETRIQ) 1-18 tablet by ity of 50 mg 00:00: mouth [place] tablet 00 daily. [facility] mirabegron 0 Yes [id number] 50mg Take 1 [facility] (MYRBETRIQ) 1-18 tablet by ity of 50 mg 00:00: mouth [place] tablet 00 daily. [facility] mirabegron 0 Yes [id number] 50mg Take 1 [facility] (MYRBETRIQ) 1-18 tablet by ity of 50 mg 00:00: mouth [place] tablet 00 daily. [facility] mirabegron 0 Yes [id number] 50mg Take 1 Univers (MYRBETRIQ) 1-18 tablet by ity of 50 mg 00:00: mouth [place] tablet 00 daily. [facility] mirabegron 0 Yes [id number] 50mg Take 1 [facility] (MYRBETRIQ) 1-18 tablet by ity of 50 mg 00:00: mouth [place] tablet 00 daily. [facility] mirabegron 0 Yes [id number] 50mg Take 1 [facility] (MYRBETRIQ) 1-18 tablet by ity of 50 mg 00:00: mouth [place] tablet [address] [facility] mirabegron 2021-0 Yes [id number] 50mg Take 1 [facility] (MYRBETRIQ) 1-18 tablet by ity of 50 mg 00:00: mouth [place] tablet [address] [facility] mirabegron 2021-0 Yes [id number] 50mg Take 1 [facility] (MYRBETRIQ) 1-18 tablet by ity of 50 mg 00:00: mouth [place] tablet [address] [facility] mirabegron 0 Yes [id number] 50mg Take 1 [facility] (MYRBETRIQ) 1-18 tablet by ity of 50 mg 00:00: mouth [place] tablet 00 daily. [facility] mirabegron 0 Yes [id number] 50mg Take 1 [facility] (MYRBETRIQ) 1-18 tablet by ity of 50 mg 00:00: mouth [place] tablet 00 daily. [facility] mirabegron 0 Yes [id number] 50mg Take 1 [facility] (MYRBETRIQ) 1-18 tablet by ity of 50 mg 00:00: mouth [place] tablet 00 daily. [facility] mirabegron 2021- No [id number] 50mg Take 1 Univers (MYRBETRIQ) 1-18 10-13 tablet by it y of 50 mg 00:00: 00:00 mouth [place] tablet 00 :[address] [facility] semaglutide 2020-09 Yes [id number] Inject Univers (OZEMPIC) 2-01 0.25 mg ity of 0.25 mg or 00:00: under the [place] 0.5 mg(2 00 skin Medical mg/1.5 mL) weekly. Branch PnIj semaglutide 2020-09 Yes [id number] Inject [facility] (OZEMPIC) 2-01 0.25 mg ity of 0.25 mg or 00:00: under the [place] 0.5 mg(2 00 skin Medical mg/1.5 mL) weekly. Branch PnIj semaglutide 2020-09 Yes [id number] Inject [facility] (OZEMPIC) 2-01 0.25 mg ity of 0.25 mg or 00:00: under the [place] 0.5 mg(2 00 skin Medical mg/1.5 mL) weekly. Branch PnIj semaglutide 2020-09 Yes [id number] Inject [facility] (OZEMPIC) 2-01 0.25 mg ity of 0.25 mg or 00:00: under the [place] 0.5 mg(2 00 skin Medical mg/1.5 mL) weekly. Branch PnIj semaglutide 2020-09 Yes [id number] Inject [facility] (OZEMPIC) 2-01 0.25 mg ity of 0.25 mg or 00:00: under the [place] 0.5 mg(2 00 skin Medical mg/1.5 mL) weekly. Branch PnIj semaglutide 2020-09 Yes [id number] Inject [facility] (OZEMPIC) 2-01 0.25 mg ity of 0.25 mg or 00:00: under the [place] 0.5 mg(2 00 skin Medical mg/1.5 mL) weekly. Branch PnIj semaglutide 2020-09 Yes [id number] Inject [facility] (OZEMPIC) 2-01 0.25 mg ity of 0.25 mg or 00:00: under the [place] 0.5 mg(2 00 skin Medical mg/1.5 mL) weekly. Branch PnIj semaglutide 2020-09 Yes [id number] Inject [facility] (OZEMPIC) 2-01 0.25 mg ity of 0.25 mg or 00:00: under the [place] 0.5 mg(2 00 skin Medical mg/1.5 mL) weekly. Branch PnIj semaglutide 2020-09 Yes [id number] Inject [facility] (OZEMPIC) 2-01 0.25 mg ity of 0.25 mg or 00:00: under the [place] 0.5 mg(2 00 skin Medical mg/1.5 mL) weekly. Branch PnIj semaglutide 2020-09 Yes [id number] Inject [facility] (OZEMPIC) 2-01 0.25 mg ity of 0.25 mg or 00:00: under the [place] 0.5 mg(2 00 skin Medical mg/1.5 mL) weekly. Branch PnIj semaglutide 2020-09 Yes [id number] Inject [facility] (OZEMPIC) 2-01 0.25 mg ity of 0.25 mg or 00:00: under the [place] 0.5 mg(2 00 skin Medical mg/1.5 mL) weekly. Branch PnIj semaglutide 2020-09 Yes [id number] Inject [facility] (OZEMPIC) 2-01 0.25 mg ity of 0.25 mg or 00:00: under the [place] 0.5 mg(2 00 skin Medical mg/1.5 mL) weekly. Branch PnIj semaglutide 2020-09 Yes [id number] Inject [facility] (OZEMPIC) 2-01 0.25 mg ity of 0.25 mg or 00:00: under the [place] 0.5 mg(2 00 skin Medical mg/1.5 mL) weekly. Branch PnIj semaglutide 2020-09 Yes [id number] Inject [facility] (OZEMPIC) 2-01 0.25 mg ity of 0.25 mg or 00:00: under the [place] 0.5 mg(2 00 skin Medical mg/1.5 mL) weekly. Branch PnIj semaglutide 2020-09 Yes [id number] Inject [facility] (OZEMPIC) 2-01 0.25 mg ity of 0.25 mg or 00:00: under the [place] 0.5 mg(2 00 skin Medical mg/1.5 mL) weekly. Branch PnIj semaglutide 2020-09 Yes [id number] Inject [facility] (OZEMPIC) 2-01 0.25 mg ity of 0.25 mg or 00:00: under the [place] 0.5 mg(2 00 skin Medical mg/1.5 mL) weekly. Branch PnIj semaglutide 2020-09 Yes [id number] Inject [facility] (OZEMPIC) 2-01 0.25 mg ity of 0.25 mg or 00:00: under the [place] 0.5 mg(2 00 skin Medical mg/1.5 mL) weekly. Branch PnIj semaglutide 2020-09 Yes [id number] Inject [facility] (OZEMPIC) 2-01 0.25 mg ity of 0.25 mg or 00:00: under the [place] 0.5 mg(2 00 skin Medical mg/1.5 mL) weekly. Branch PnIj semaglutide 2020-09 Yes [id number] Inject [facility] (OZEMPIC) 2-01 0.25 mg ity of 0.25 mg or 00:00: under the [place] 0.5 mg(2 00 skin Medical mg/1.5 mL) weekly. Branch RyIj semaglutide 2020-09 Yes [id number] Inject [facility] (OZEMPIC) 2-01 0.25 mg ity of 0.25 mg or 00:00: under the [place] 0.5 mg(2 00 skin Medical mg/1.5 mL) weekly. Branch RyIj semaglutide 2020-09 Yes [id number] Inject [facility] (OZEMPIC) 2-01 0.25 mg ity of 0.25 mg or 00:00: under the [place] 0.5 mg(2 00 skin Medical mg/1.5 mL) weekly. Branch RyMali semaglutide 2020-09 Yes [id number] Inject [facility] (OZEMPIC) 2-01 0.25 mg ity of 0.25 mg or 00:00: under the [place] 0.5 mg(2 00 skin Medical mg/1.5 mL) weekly. Branch RyM[facility] semaglutide 2020-09 Yes [id number] Inject [facility] (OZEMPIC) 2-01 0.25 mg ity of 0.25 mg or 00:00: under the [place] 0.5 mg(2 00 skin Medical mg/1.5 mL) weekly. Branch RyM[facility] semaglutide 2020-09 Yes [id number] Inject [facility] (OZEMPIC) 2-01 0.25 mg ity of 0.25 mg or 00:00: under the [place] 0.5 mg(2 00 skin Medical mg/1.5 mL) weekly. Branch RyIj semaglutide 2020-09 Yes [id number] Inject [facility] (OZEMPIC) 2-01 0.25 mg ity of 0.25 mg or 00:00: under the [place] 0.5 mg(2 00 skin Medical mg/1.5 mL) weekly. Branch Ry[facility] semaglutide 2020-09 Yes [id number] Inject [facility] (OZEMPIC) 2-01 0.25 mg ity of 0.25 mg or 00:00: under the [place] 0.5 mg(2 00 skin Medical mg/1.5 mL) weekly. Branch RyI[facility] semaglutide 2020-09 Yes [id number] Inject [facility] (OZEMPIC) 2-01 0.25 mg ity of 0.25 mg or 00:00: under the [place] 0.5 mg(2 00 skin Medical mg/1.5 mL) weekly. Branch PnIj semaglutide 2020-09 Yes [id number] Inject [facility] (OZEMPIC) 2-01 0.25 mg ity of 0.25 mg or 00:00: under the [place] 0.5 mg(2 00 skin Medical mg/1.5 mL) weekly. Branch PnIj semaglutide 2020-09 Yes [id number] Inject [facility] (OZEMPIC) 2-01 0.25 mg ity of 0.25 mg or 00:00: under the [place] 0.5 mg(2 00 skin Medical mg/1.5 mL) weekly. Branch PnIj semaglutide 2020-09 Yes [id number] Inject [facility] (OZEMPIC) 2-01 0.25 mg ity of 0.25 mg or 00:00: under the [place] 0.5 mg(2 00 skin Medical mg/1.5 mL) weekly. Branch PnIj semaglutide 2020-09 Yes [id number] Inject [facility] (OZEMPIC) 2-01 0.25 mg ity of 0.25 mg or 00:00: under the [place] 0.5 mg(2 00 skin Medical mg/1.5 mL) weekly. Branch PnIj semaglutide 2020-09 Yes [id number] Inject [facility] (OZEMPIC) 2-01 0.25 mg ity of 0.25 mg or 00:00: under the [place] 0.5 mg(2 00 skin Medical mg/1.5 mL) weekly. Branch PnIj semaglutide 2020-09 Yes [id number] Inject [facility] (OZEMPIC) 2-01 0.25 mg ity of 0.25 mg or 00:00: under the [place] 0.5 mg(2 00 skin Medical mg/1.5 mL) weekly. Branch PnIj semaglutide 2020-09 Yes [id number] Inject [facility] (OZEMPIC) 2-01 0.25 mg ity of 0.25 mg or 00:00: under the [place] 0.5 mg(2 00 skin Medical mg/1.5 mL) weekly. Branch PnIj semaglutide 2020-09 Yes [id number] Inject [facility] (OZEMPIC) 2-01 0.25 mg ity of 0.25 mg or 00:00: under the [place] 0.5 mg(2 00 skin [facility] mg/1.5 mL) weekly. [facility] PnIj semaglutide 2020-09 Yes [id number] Inject [facility] (OZEMPIC) 2-01 0.25 mg ity of 0.25 mg or 00:00: under the [place] 0.5 mg(2 00 skin [facility] mg/1.5 mL) weekly. [facility] PnIj semaglutide 2020-09 Yes [id number] Inject [facility] (OZEMPIC) 2-01 0.25 mg ity of 0.25 mg or 00:00: under the [place] 0.5 mg(2 00 skin [facility] mg/1.5 mL) weekly. [facility] PnIj semaglutide 2020-09 Yes [id number] Inject [facility] (OZEMPIC) 2-01 0.25 mg ity of 0.25 mg or 00:00: under the [place] 0.5 mg(2 00 skin [facility] mg/1.5 mL) weekly. [facility] PnIj semaglutide 2020-09 Yes [id number] Inject [facility] (OZEMPIC) 2-01 0.25 mg ity of 0.25 mg or 00:00: under the [place] 0.5 mg(2 00 skin Medical mg/1.5 mL) weekly. Branch PnIj semaglutide 2020-09 Yes [id number] Inject [facility] (OZEMPIC) 2-01 0.25 mg ity of 0.25 mg or 00:00: under the [place] 0.5 mg(2 00 skin Medical mg/1.5 mL) weekly. Branch PnIj semaglutide 2020-09 Yes [id number] Inject [facility] (OZEMPIC) 2-01 0.25 mg ity of 0.25 mg or 00:00: under the [place] 0.5 mg(2 00 skin Medical mg/1.5 mL) weekly. Branch PnIj semaglutide 2020-09 Yes [id number] Inject [facility] (OZEMPIC) 2-01 0.25 mg ity of 0.25 mg or 00:00: under the [place] 0.5 mg(2 00 skin Medical mg/1.5 mL) weekly. Branch PnIj semaglutide 2020-09 Yes [id number] Inject [facility] (OZEMPIC) 2-01 0.25 mg ity of 0.25 mg or 00:00: under the [place] 0.5 mg(2 00 skin Medical mg/1.5 mL) weekly. Branch PnIj semaglutide 2020-09 Yes [id number] Inject [facility] (OZEMPIC) 2- 0.25 mg ity of 0.25 mg or 00:00: under the [place] 0.5 mg(2 00 skin Medical mg/1.5 mL) weekly. Branch PnIj semaglutide 2020-09 Yes [id number] Inject [facility] (OZEMPIC) 2- 0.25 mg ity of 0.25 mg or 00:00: under the [place] 0.5 mg(2 00 skin Medical mg/1.5 mL) weekly. Branch PnIj semaglutide 2020-09 Yes [id number] Inject [facility] (OZEMPIC) 2- 0.25 mg ity of 0.25 mg or 00:00: under the [place] 0.5 mg(2 00 skin Medical mg/1.5 mL) weekly. Branch PnIj semaglutide 2020-09 Yes [id number] Inject [facility] (OZEMPIC) 2- 0.25 mg ity of 0.25 mg or 00:00: under the [place] 0.5 mg(2 00 skin Medical mg/1.5 mL) weekly. Branch PnIj semaglutide 2020-09 Yes [id number] Inject [facility] (OZEMPIC) 2- 0.25 mg ity of 0.25 mg or 00:00: under the [place] 0.5 mg(2 00 skin Medical mg/1.5 mL) weekly. Branch PnIj semaglutide 2020-09- No [id number] Inject [facility] (OZEMPIC) 2- 0.25 mg ity of 0.25 mg or 00:00: 00:00 under the [place] 0.5 mg(2 00 :00 skin Medical mg/1.5 mL) weekly. Branch PnIj metformin 2020-09- No [id number] 500mg Take 1 [facility] ER 500 mg 10-27 tablet by ity of 24 hr 00:00: 00:00 mouth [place] tablet 00 :00 daily with Medical breakfast. Branch STOP REGULAR METFORMIN. metformin 2020-09- No [id number] 500mg Take 1 [facility] ER 500 mg 10-27 tablet by ity of 24 hr 00:00: 00:00 mouth [place] tablet 00 :00 daily with Medical breakfast. Branch STOP REGULAR METFORMIN. cyanocobala 2020-09 Yes [id number] 1000ug 1 mL by [facility] min 1,000 -09 Intramuscu ity of mcg/mL 00:00: lar route [place] injection 00 every 2 Medical (two) Branch weeks. levothyroxi 2020-09 Yes [id number] 50ug Take 1 [facility] ne 50 mcg 10-04 tablet by ity o f tablet 00:00: mouth [place] 00 every Medical morning. Branch fluticasone 2020-09 Yes [id number] 2{puff} Inhale 2 [facility] propionate -09 Puffs ity of (FLOVENT 00:00: every 12 [place] HFA) 110 00 (twelve) Medical mcg/actuati hours. Branch on inhaler Rinse mouth after each use. levalbutero 2020-09 Yes [id number] .63mg Inhale [facility] l 0.63 mg/3 -09 0.63 mg 3 ity of mL 00:00: (three) [place] nebulizer 00 times Medical solution daily as Branch needed for Wheezing or Shortness of Breath. losartan 50 2020-09 Yes [id number] 50mg Take 1 [facility] mg tablet -09 tablet by ity o f 00:00: mouth 2 [place] 00 (two) Medical times Branch daily. clotrimazol 2020-09 Yes [id number] Apply to [facility] e-betametha - area(s) 2 ity of sone cream 00:00: (two) [place] 00 times Medical daily. Branch cyclobenzap 2020-09 Yes [id number] TAKE 1 [facility] rine 5 mg -09 TABLET BY ity o f tablet 00:00: MOUTH [place] 00 EVERY 8 Medical HOURS Branch NEEDED econazole 2020-09 Yes [id number] Apply to [facility] nitrate 1 % 09 area(s) 2 ity of cream 00:00: (two) [place] 00 times Medical daily. Branch albuterol 2020-09 Yes [id number] 2{puff} Inhale 2 [facility] (PROAIR 1-09 Puffs ity of HFA) 90 00:00: every 6 [place] mcg/actuati 00 (six) Medical on inhaler hours as Branc h needed for Wheezing or Shortness of Breath. triamcinolo 2020-09 Yes [id number] Apply to [facility] ne 0.025 % 09 area(s) 3 ity of ointment 00:00: (three) [place] 00 times Medical daily. For Branch itching diltiazem 2020-09 Yes [id number] 120mg Take 1 [facility] (CARTIA XT) 10-04 capsule by it y of 120 mg 24 00:00: mouth 2 [place] hr capsule 00 (two) Medical times Branch daily. cyanocobala 2020-09 Yes [id number] 1000ug 1 mL by [facility] min 1,000 -09 Intramuscu ity of mcg/mL 00:00: lar route [place] injection 00 every 2 Medical (two) Branch weeks. levothyroxi 2020-09 Yes [id number] 50ug Take 1 [facility] ne 50 mcg 10-04 tablet by ity o f tablet 00:00: mouth [place] 00 every Medical morning. Branch fluticasone 2020-09 Yes [id number] 2{puff} Inhale 2 [facility] propionate 1-09 Puffs ity of (FLOVENT 00:00: every 12 [place] HFA) 110 00 (twelve) Medical mcg/actuati hours. Branch on inhaler Rinse mouth after each use. levalbutero 2020-09 Yes [id number] .63mg Inhale [facility] l 0.63 mg/3 1-09 0.63 mg 3 ity of mL 00:00: (three) [place] nebulizer 00 times Medical solution daily as Branch needed for Wheezing or Shortness of Breath. losartan 50 2020-09 Yes [id number] 50mg Take 1 [facility] mg tablet -09 tablet by ity o f 00:00: mouth 2 [place] 00 (two) Medical times Branch daily. clotrimazol 2020-09 Yes [id number] Apply to [facility] e-betametha 09 area(s) 2 ity of sone cream 00:00: (two) [place] 00 times Medical daily. Branch cyclobenzap 2020-09 Yes [id number] TAKE 1 [facility] rine 5 mg -09 TABLET BY ity o f tablet 00:00: MOUTH [place] 00 EVERY 8 Medical HOURS Branch NEEDED econazole 2020-09 Yes [id number] Apply to [facility] nitrate 1 % 1-09 area(s) 2 ity of cream 00:00: (two) [place] 00 times Medical daily. Branch albuterol 2020-09 Yes [id number] 2{puff} Inhale 2 [facility] (PROAIR 1-09 Puffs ity of HFA) 90 00:00: every 6 [place] mcg/actuati 00 (six) Medical on inhaler hours as Branc h needed for Wheezing or Shortness of Breath. triamcinolo 2020-09 Yes [id number] Apply to [facility] ne 0.025 % 1-09 area(s) 3 ity of ointment 00:00: (three) [place] 00 times Medical daily. For Branch itching diltiazem 2020-09 Yes [id number] 120mg Take 1 [facility] (CARTIA XT) 1-09 capsule by it y of 120 mg 24 00:00: mouth 2 [place] hr capsule 00 (two) Medical times Branch daily. cyanocobala 2020-09 Yes [id number] 1000ug 1 mL by [facility] min 1,000 1-09 Intramuscu ity of mcg/mL 00:00: lar route [place] injection 00 every 2 Medical (two) Branch weeks. levothyroxi 2020-09 Yes [id number] 50ug Take 1 [facility] ne 50 mcg 1-09 tablet by ity o f tablet 00:00: mouth [place] 00 every Medical morning. Branch fluticasone 2020-09 Yes [id number] 2{puff} Inhale 2 [facility] propionate 1-09 Puffs ity of (FLOVENT 00:00: every 12 [place] HFA) 110 00 (twelve) Medical mcg/actuati hours. Branch on inhaler Rinse mouth after each use. levalbutero 2020-09 Yes [id number] .63mg Inhale [facility] l 0.63 mg/3 1-09 0.63 mg 3 ity of mL 00:00: (three) [place] nebulizer 00 times Medical solution daily as Branch needed for Wheezing or Shortness of Breath. losartan 50 2020-09 Yes [id number] 50mg Take 1 [facility] mg tablet 1-09 tablet by ity o f 00:00: mouth 2 [place] 00 (two) Medical times Branch daily. clotrimazol 2020-09 Yes [id number] Apply to [facility] e-betametha -09 area(s) 2 ity of sone cream 00:00: (two) [place] 00 times Medical daily. Branch cyclobenzap 2020-09 Yes [id number] TAKE 1 [facility] rine 5 mg -09 TABLET BY ity o f tablet 00:00: MOUTH [place] 00 EVERY 8 Medical HOURS Branch NEEDED econazole 2020-09 Yes [id number] Apply to [facility] nitrate 1 % 09 area(s) 2 ity of cream 00:00: (two) [place] 00 times Medical daily. Branch albuterol 2020-09 Yes [id number] 2{puff} Inhale 2 [facility] (PROAIR 1-09 Puffs ity of HFA) 90 00:00: every 6 [place] mcg/actuati 00 (six) Medical on inhaler hours as Branc h needed for Wheezing or Shortness of Breath. triamcinolo 2020-09 Yes [id number] Apply to [facility] ne 0.025 % 10-04 area(s) 3 ity of ointment 00:00: (three) [place] 00 times Medical daily. For Branch itching diltiazem 2020-09 Yes [id number] 120mg Take 1 [facility] n[facility] (CARTIA XT) 09 capsule by it y of 120 mg 24 00:00: mouth 2 [place] hr capsule 00 (two) Medical times Branch daily. cyanocobala 2020-09 Yes [id number] 1000ug 1 mL by [facility] min 1,000 -09 Intramuscu ity of mcg/mL 00:00: lar route [place] injection 00 every 2 Medical (two) Branch weeks. levothyroxi 2020-09 Yes [id number] 50ug Take 1 [facility] ne 50 mcg -09 tablet by ity o f tablet 00:00: mouth [place] 00 every Medical morning. Branch fluticasone 2020-09 Yes [id number] 2{puff} Inhale 2 [facility] propionate 1-09 Puffs ity of (FLOVENT 00:00: every 12 [place] HFA) 110 00 (twelve) Medical mcg/actuati hours. Branch on inhaler Rinse mouth after each use. levalbutero 2020-09 Yes [id number] .63mg Inhale [facility] l 0.63 mg/3 1-09 0.63 mg 3 ity of mL 00:00: (three) [place] nebulizer 00 times Medical solution daily as Branch needed for Wheezing or Shortness of Breath. losartan 50 2020-09 Yes [id number] 50mg Take 1 [facility] mg tablet 1-09 tablet by ity o f 00:00: mouth 2 [place] 00 (two) Medical times Branch daily. clotrimazol 2020-09 Yes [id number] Apply to [facility] e-betametha -09 area(s) 2 ity of sone cream 00:00: (two) [place] 00 times Medical daily. Branch cyclobenzap 2020-09 Yes [id number] TAKE 1 [facility] rine 5 mg -09 TABLET BY ity o f tablet 00:00: MOUTH [place] 00 EVERY 8 Medical HOURS Branch NEEDED econazole 2020-09 Yes [id number] Apply to [facility] nitrate 1 % 09 area(s) 2 ity of cream 00:00: (two) [place] 00 times Medical daily. Branch albuterol 2020-09 Yes [id number] 2{puff} Inhale 2 [facility] (PROAIR 1-09 Puffs ity of HFA) 90 00:00: every 6 [place] mcg/actuati 00 (six) Medical on inhaler hours as Branc h needed for Wheezing or Shortness of Breath. triamcinolo 2020-09 Yes [id number] Apply to [facility] ne 0.025 % 09 area(s) 3 ity of ointment 00:00: (three) [place] 00 times Medical daily. For Branch itching diltiazem 2020-09 Yes [id number] 120mg Take 1 [facility] n[facility] (CARTIA XT) -09 capsule by it y of 120 mg 24 00:00: mouth 2 [place] hr capsule 00 (two) Medical times Branch daily. cyanocobala 2020-09 Yes [id number] 1000ug 1 mL by [facility] min 1,000 1-09 Intramuscu ity of mcg/mL 00:00: lar route [place] injection 00 every 2 Medical (two) Branch weeks. levothyroxi 2020-09 Yes [id number] 50ug Take 1 [facility] ne 50 mcg 1-09 tablet by ity o f tablet 00:00: mouth [place] 00 every Medical morning. Branch fluticasone 2020-09 Yes [id number] 2{puff} Inhale 2 [facility] propionate 1-09 Puffs ity of (FLOVENT 00:00: every 12 [place] HFA) 110 00 (twelve) Medical mcg/actuati hours. Branch on inhaler Rinse mouth after each use. levalbutero 2020-09 Yes [id number] .63mg Inhale [facility] l 0.63 mg/3 1-09 0.63 mg 3 ity of mL 00:00: (three) [place] nebulizer 00 times Medical solution daily as Branch needed for Wheezing or Shortness of Breath. clotrimazol 2020-09 Yes [id number] Apply to [facility] e-betametha -09 area(s) 2 ity of sone cream 00:00: (two) [place] 00 times Medical daily. Branch cyclobenzap 2020-09 Yes [id number] TAKE 1 [facility] rine 5 mg -09 TABLET BY ity o f tablet 00:00: MOUTH [place] 00 EVERY 8 Medical HOURS Branch NEEDED econazole 2020-09 Yes [id number] Apply to [facility] nitrate 1 % 10-04 area(s) 2 ity of cream 00:00: (two) [place] 00 times Medical daily. Branch albuterol 2020-09 Yes [id number] 2{puff} Inhale 2 [facility] (PROAIR 1-09 Puffs ity of HFA) 90 00:00: every 6 [place] mcg/actuati 00 (six) Medical on inhaler hours as Branc h needed for Wheezing or Shortness of Breath. triamcinolo 2020-09 Yes [id number] Apply to [facility] ne 0.025 % 09 area(s) 3 ity of ointment 00:00: (three) [place] 00 times Medical daily. For Branch itching cyanocobala 2020-09 Yes [id number] 1000ug 1 mL by [facility] min 1,000 1-09 Intramuscu ity of mcg/mL 00:00: lar route [place] injection 00 every 2 Medical (two) Branch weeks. levothyroxi 2020-09 Yes [id number] 50ug Take 1 [facility] ne 50 mcg 1-09 tablet by ity o f tablet 00:00: mouth [place] 00 every Medical morning. Branch fluticasone 2020-09 Yes [id number] 2{puff} Inhale 2 [facility] propionate 1-09 Puffs ity of (FLOVENT 00:00: every 12 [place] HFA) 110 00 (twelve) Medical mcg/actuati hours. Branch on inhaler Rinse mouth after each use. levalbutero 2020-09 Yes [id number] .63mg Inhale [facility] l 0.63 mg/3 1-09 0.63 mg 3 ity of mL 00:00: (three) [place] nebulizer 00 times Medical solution daily as Branch needed for Wheezing or Shortness of Breath. clotrimazol 2020-09 Yes [id number] Apply to [facility] e-betametha 09 area(s) 2 ity of sone cream 00:00: (two) [place] 00 times Medical daily. Branch cyclobenzap 2020-09 Yes [id number] TAKE 1 [facility] rine 5 mg 10-04 TABLET BY ity o f tablet 00:00: MOUTH [place] 00 EVERY 8 Medical HOURS Branch NEEDED econazole 2020-09 Yes [id number] Apply to [facility] nitrate 1 % 10-04 area(s) 2 ity of cream 00:00: (two) [place] 00 times Medical daily. Branch albuterol 2020-09 Yes [id number] 2{puff} Inhale 2 [facility] (PROAIR 1-09 Puffs ity of HFA) 90 00:00: every 6 [place] mcg/actuati 00 (six) Medical on inhaler hours as Branc h needed for Wheezing or Shortness of Breath. triamcinolo 2020-09 Yes [id number] Apply to [facility] ne 0.025 % 10-04 area(s) 3 ity of ointment 00:00: (three) [place] 00 times Medical daily. For Branch itching cyanocobala 2020-09 Yes [id number] 1000ug 1 mL by [facility] min 1,000 -09 Intramuscu ity of mcg/mL 00:00: lar route [place] injection 00 every 2 Medical (two) Branch weeks. levothyroxi 2020-09 Yes [id number] 50ug Take 1 [facility] ne 50 mcg -09 tablet by ity o f tablet 00:00: mouth [place] 00 every Medical morning. Branch fluticasone 2020-09 Yes [id number] 2{puff} Inhale 2 [facility] propionate 1-09 Puffs ity of (FLOVENT 00:00: every 12 [place] HFA) 110 00 (twelve) Medical mcg/actuati hours. Branch on inhaler Rinse mouth after each use. levalbutero 2020-09 Yes [id number] .63mg Inhale [facility] l 0.63 mg/3 1-09 0.63 mg 3 ity of mL 00:00: (three) [place] nebulizer 00 times Medical solution daily as Branch needed for Wheezing or Shortness of Breath. clotrimazol 2020-09 Yes [id number] Apply to [facility] e-betametha 09 area(s) 2 ity of sone cream 00:00: (two) [place] 00 times Medical daily. Branch cyclobenzap 2020-09 Yes [id number] TAKE 1 [facility] rine 5 mg 10-04 TABLET BY ity o f tablet 00:00: MOUTH [place] 00 EVERY 8 Medical HOURS Branch NEEDED econazole 2020-09 Yes [id number] Apply to [facility] nitrate 1 % 10-04 area(s) 2 ity of cream 00:00: (two) [place] 00 times Medical daily. Branch albuterol 2020-09 Yes [id number] 2{puff} Inhale 2 [facility] (PROAIR 1-09 Puffs ity of HFA) 90 00:00: every 6 [place] mcg/actuati 00 (six) Medical on inhaler hours as Branc h needed for Wheezing or Shortness of Breath. triamcinolo 2020-09 Yes [id number] Apply to [facility] ne 0.025 % 10-04 area(s) 3 ity of ointment 00:00: (three) [place] 00 times Medical daily. For Branch itching cyanocobala 2020-09 Yes [id number] 1000ug 1 mL by [facility] min 1,000 -09 Intramuscu ity of mcg/mL 00:00: lar route [place] injection 00 every 2 Medical (two) Branch weeks. levothyroxi 2020-09 Yes [id number] 50ug Take 1 [facility] ne 50 mcg -09 tablet by ity o f tablet 00:00: mouth [place] 00 every Medical morning. Branch fluticasone 2020-09 Yes [id number] 2{puff} Inhale 2 [facility] propionate 1-09 Puffs ity of (FLOVENT 00:00: every 12 [place] HFA) 110 00 (twelve) Medical mcg/actuati hours. Branch on inhaler Rinse mouth after each use. levalbutero 2020-09 Yes [id number] .63mg Inhale [facility] l 0.63 mg/3 1-09 0.63 mg 3 ity of mL 00:00: (three) [place] nebulizer 00 times Medical solution daily as Branch needed for Wheezing or Shortness of Breath. clotrimazol 2020-09 Yes [id number] Apply to [facility] e-betametha 1-09 area(s) 2 ity of sone cream 00:00: (two) [place] 00 times Medical daily. Branch cyclobenzap 2020-09 Yes [id number] TAKE 1 [facility] rine 5 mg 1-09 TABLET BY ity o f tablet 00:00: MOUTH [place] 00 EVERY 8 Medical HOURS Branch NEEDED econazole 2020-09 Yes [id number] Apply to [facility] nitrate 1 % -09 area(s) 2 ity of cream 00:00: (two) [place] 00 times Medical daily. Branch albuterol 2020-09 Yes [id number] 2{puff} Inhale 2 [facility] (PROAIR 1-09 Puffs ity of HFA) 90 00:00: every 6 [place] mcg/actuati 00 (six) Medical on inhaler hours as Branc h needed for Wheezing or Shortness of Breath. triamcinolo 2020-09 Yes [id number] Apply to [facility] ne 0.025 % -09 area(s) 3 ity of ointment 00:00: (three) [place] 00 times Medical daily. For Branch itching cyanocobala 2020-09 Yes [id number] 1000ug 1 mL by [facility] min 1,000 1-09 Intramuscu ity of mcg/mL 00:00: lar route [place] injection 00 every 2 Medical (two) Branch weeks. levothyroxi 2020-09 Yes [id number] 50ug Take 1 [facility] ne 50 mcg 1-09 tablet by ity o f tablet 00:00: mouth [place] 00 every Medical morning. Branch fluticasone 2020-09 Yes [id number] 2{puff} Inhale 2 [facility] propionate 1-09 Puffs ity of (FLOVENT 00:00: every 12 [place] HFA) 110 00 (twelve) Medical mcg/actuati hours. Branch on inhaler Rinse mouth after each use. levalbutero 2020-09 Yes [id number] .63mg Inhale [facility] l 0.63 mg/3 1-09 0.63 mg 3 ity of mL 00:00: (three) [place] nebulizer 00 times Medical solution daily as Branch needed for Wheezing or Shortness of Breath. clotrimazol 2020-09 Yes [id number] Apply to [facility] e-betametha 10-04 area(s) 2 ity of sone cream 00:00: (two) [place] 00 times Medical daily. Branch cyclobenzap 2020-09 Yes [id number] TAKE 1 [facility] rine 5 mg 09 TABLET BY ity o f tablet 00:00: MOUTH [place] 00 EVERY 8 Medical HOURS Branch NEEDED econazole 2020-09 Yes [id number] Apply to [facility] nitrate 1 % 10-04 area(s) 2 ity of cream 00:00: (two) [place] 00 times Medical daily. Branch albuterol 2020-09 Yes [id number] 2{puff} Inhale 2 [facility] (PROAIR 1-09 Puffs ity of HFA) 90 00:00: every 6 [place] mcg/actuati 00 (six) Medical on inhaler hours as Branc h needed for Wheezing or Shortness of Breath. triamcinolo 2020-09 Yes [id number] Apply to [facility] ne 0.025 % 10-04 area(s) 3 ity of ointment 00:00: (three) [place] 00 times Medical daily. For Branch itching cyanocobala 2020-09 Yes [id number] 1000ug 1 mL by [facility] min 1,000 1-09 Intramuscu ity of mcg/mL 00:00: lar route [place] injection 00 every 2 Medical (two) Branch weeks. levothyroxi 2020-09 Yes [id number] 50ug Take 1 [facility] ne 50 mcg 10-04 tablet by ity o f tablet 00:00: mouth [place] 00 every Medical morning. Branch fluticasone 2020-09 Yes [id number] 2{puff} Inhale 2 [facility] propionate 1-09 Puffs ity of (FLOVENT 00:00: every 12 [place] HFA) 110 00 (twelve) Medical mcg/actuati hours. Branch on inhaler Rinse mouth after each use. levalbutero 2020-09 Yes [id number] .63mg Inhale [facility] l 0.63 mg/3 1-09 0.63 mg 3 ity of mL 00:00: (three) [place] nebulizer 00 times Medical solution daily as Branch needed for Wheezing or Shortness of Breath. clotrimazol 2020-09 Yes [id number] Apply to [facility] e-betametha -09 area(s) 2 ity of sone cream 00:00: (two) [place] 00 times Medical daily. Branch cyclobenzap 2020-09 Yes [id number] TAKE 1 [facility] rine 5 mg -09 TABLET BY ity o f tablet 00:00: MOUTH [place] 00 EVERY 8 Medical HOURS Branch NEEDED econazole 2020-09 Yes [id number] Apply to [facility] nitrate 1 % 09 area(s) 2 ity of cream 00:00: (two) [place] 00 times Medical daily. Branch albuterol 2020-09 Yes [id number] 2{puff} Inhale 2 [facility] (PROAIR 1-09 Puffs ity of HFA) 90 00:00: every 6 [place] mcg/actuati 00 (six) Medical on inhaler hours as Branc h needed for Wheezing or Shortness of Breath. triamcinolo 2020-09 Yes [id number] Apply to [facility] ne 0.025 % 10-04 area(s) 3 ity of ointment 00:00: (three) [place] 00 times Medical daily. For Branch itching cyanocobala 2020-09 Yes [id number] 1000ug 1 mL by [facility] min 1,000 -09 Intramuscu ity of mcg/mL 00:00: lar route [place] injection 00 every 2 Medical (two) Branch weeks. levothyroxi 2020-09 Yes [id number] 50ug Take 1 [facility] ne 50 mcg 10-04 tablet by ity o f tablet 00:00: mouth [place] 00 every Medical morning. Branch fluticasone 2020-09 Yes [id number] 2{puff} Inhale 2 [facility] propionate 1-09 Puffs ity of (FLOVENT 00:00: every 12 [place] HFA) 110 00 (twelve) Medical mcg/actuati hours. Branch on inhaler Rinse mouth after each use. levalbutero 2020-09 Yes [id number] .63mg Inhale [facility] l 0.63 mg/3 1-09 0.63 mg 3 ity of mL 00:00: (three) [place] nebulizer 00 times Medical solution daily as Branch needed for Wheezing or Shortness of Breath. clotrimazol 2020-09 Yes [id number] Apply to [facility] e-betametha -09 area(s) 2 ity of sone cream 00:00: (two) [place] 00 times Medical daily. Branch cyclobenzap 2020-09 Yes [id number] TAKE 1 [facility] rine 5 mg 1-09 TABLET BY ity o f tablet 00:00: MOUTH [place] 00 EVERY 8 Medical HOURS Branch NEEDED econazole 2020-09 Yes [id number] Apply to [facility] nitrate 1 % -09 area(s) 2 ity of cream 00:00: (two) [place] 00 times Medical daily. Branch albuterol 2020-09 Yes [id number] 2{puff} Inhale 2 [facility] (PROAIR 1-09 Puffs ity of HFA) 90 00:00: every 6 [place] mcg/actuati 00 (six) Medical on inhaler hours as Branc h needed for Wheezing or Shortness of Breath. triamcinolo 2020-09 Yes [id number] Apply to [facility] ne 0.025 % 10-04 area(s) 3 ity of ointment 00:00: (three) [place] 00 times Medical daily. For Branch itching cyanocobala 2020-09 Yes [id number] 1000ug 1 mL by [facility] min 1,000 1-09 Intramuscu ity of mcg/mL 00:00: lar route [place] injection 00 every 2 Medical (two) Branch weeks. levothyroxi 2020-09 Yes [id number] 50ug Take 1 [facility] ne 50 mcg -09 tablet by ity o f tablet 00:00: mouth [place] 00 every Medical morning. Branch fluticasone 2020-09 Yes [id number] 2{puff} Inhale 2 [facility] propionate 1-09 Puffs ity of (FLOVENT 00:00: every 12 [place] HFA) 110 00 (twelve) Medical mcg/actuati hours. Branch on inhaler Rinse mouth after each use. levalbutero 2020-09 Yes [id number] .63mg Inhale [facility] l 0.63 mg/3 1-09 0.63 mg 3 ity of mL 00:00: (three) [place] nebulizer 00 times Medical solution daily as Branch needed for Wheezing or Shortness of Breath. clotrimazol 2020-09 Yes [id number] Apply to [facility] e-betametha -09 area(s) 2 ity of sone cream 00:00: (two) [place] 00 times Medical daily. Branch cyclobenzap 2020-09 Yes [id number] TAKE 1 [facility] rine 5 mg 1-09 TABLET BY ity o f tablet 00:00: MOUTH [place] 00 EVERY 8 Medical HOURS Branch NEEDED econazole 2020-09 Yes [id number] Apply to [facility] nitrate 1 % -09 area(s) 2 ity of cream 00:00: (two) [place] 00 times Medical daily. Branch albuterol 2020-09 Yes [id number] 2{puff} Inhale 2 [facility] (PROAIR 1-09 Puffs ity of HFA) 90 00:00: every 6 [place] mcg/actuati 00 (six) Medical on inhaler hours as Branc h needed for Wheezing or Shortness of Breath. triamcinolo 2020-09 Yes [id number] Apply to [facility] ne 0.025 % 10-04 area(s) 3 ity of ointment 00:00: (three) [place] 00 times Medical daily. For Branch itching cyanocobala 2020-09 Yes [id number] 1000ug 1 mL by [facility] min 1,000 -09 Intramuscu ity of mcg/mL 00:00: lar route [place] injection 00 every 2 Medical (two) Branch weeks. levothyroxi 2020-09 Yes [id number] 50ug Take 1 [facility] ne 50 mcg -09 tablet by ity o f tablet 00:00: mouth [place] 00 every Medical morning. Branch fluticasone 2020-09 Yes [id number] 2{puff} Inhale 2 [facility] propionate 1-09 Puffs ity of (FLOVENT 00:00: every 12 [place] HFA) 110 00 (twelve) Medical mcg/actuati hours. Branch on inhaler Rinse mouth after each use. levalbutero 2020-09 Yes [id number] .63mg Inhale [facility] l 0.63 mg/3 1-09 0.63 mg 3 ity of mL 00:00: (three) [place] nebulizer 00 times Medical solution daily as Branch needed for Wheezing or Shortness of Breath. clotrimazol 2020-09 Yes [id number] Apply to [facility] e-betametha -09 area(s) 2 ity of sone cream 00:00: (two) [place] 00 times Medical daily. Branch cyclobenzap 2020-09 Yes [id number] TAKE 1 [facility] rine 5 mg 1-09 TABLET BY ity o f tablet 00:00: MOUTH [place] 00 EVERY 8 Medical HOURS Branch NEEDED econazole 2020-09 Yes [id number] Apply to [facility] nitrate 1 % -09 area(s) 2 ity of cream 00:00: (two) [place] 00 times Medical daily. Branch albuterol 2020-09 Yes [id number] 2{puff} Inhale 2 [facility] (PROAIR 1-09 Puffs ity of HFA) 90 00:00: every 6 [place] mcg/actuati 00 (six) Medical on inhaler hours as Branc h needed for Wheezing or Shortness of Breath. triamcinolo 2020-09 Yes [id number] Apply to [facility] ne 0.025 % 09 area(s) 3 ity of ointment 00:00: (three) [place] 00 times Medical daily. For Branch itching cyanocobala 2020-09 Yes [id number] 1000ug 1 mL by [facility] min 1,000 -09 Intramuscu ity of mcg/mL 00:00: lar route [place] injection 00 every 2 Medical (two) Branch weeks. levothyroxi 2020-09 Yes [id number] 50ug Take 1 [facility] ne 50 mcg -09 tablet by ity o f tablet 00:00: mouth [place] 00 every Medical morning. Branch fluticasone 2020-09 Yes [id number] 2{puff} Inhale 2 [facility] propionate 1-09 Puffs ity of (FLOVENT 00:00: every 12 [place] HFA) 110 00 (twelve) Medical mcg/actuati hours. Branch on inhaler Rinse mouth after each use. levalbutero 2020-09 Yes [id number] .63mg Inhale [facility] l 0.63 mg/3 1-09 0.63 mg 3 ity of mL 00:00: (three) [place] nebulizer 00 times Medical solution daily as Branch needed for Wheezing or Shortness of Breath. clotrimazol 2020-09 Yes [id number] Apply to [facility] e-betametha -09 area(s) 2 ity of sone cream 00:00: (two) [place] 00 times Medical daily. Branch cyclobenzap 2020-09 Yes [id number] TAKE 1 [facility] rine 5 mg 1-09 TABLET BY ity o f tablet 00:00: MOUTH [place] 00 EVERY 8 Medical HOURS Branch NEEDED econazole 2020-09 Yes [id number] Apply to [facility] nitrate 1 % 1-09 area(s) 2 ity of cream 00:00: (two) [place] 00 times Medical daily. Branch albuterol 2020-09 Yes [id number] 2{puff} Inhale 2 [facility] (PROAIR 1-09 Puffs ity of HFA) 90 00:00: every 6 [place] mcg/actuati 00 (six) Medical on inhaler hours as Branc h needed for Wheezing or Shortness of Breath. triamcinolo 2020-09 Yes [id number] Apply to [facility] ne 0.025 % 09 area(s) 3 ity of ointment 00:00: (three) [place] 00 times Medical daily. For Branch itching cyanocobala 2020-09 Yes [id number] 1000ug 1 mL by [facility] min 1,000 1-09 Intramuscu ity of mcg/mL 00:00: lar route [place] injection 00 every 2 Medical (two) Branch weeks. levothyroxi 2020-09 Yes [id number] 50ug Take 1 [facility] ne 50 mcg 1-09 tablet by ity o f tablet 00:00: mouth [place] 00 every Medical morning. Branch fluticasone 2020-09 Yes [id number] 2{puff} Inhale 2 [facility] propionate 1-09 Puffs ity of (FLOVENT 00:00: every 12 [place] HFA) 110 00 (twelve) Medical mcg/actuati hours. Branch on inhaler Rinse mouth after each use. levalbutero 2020-09 Yes [id number] .63mg Inhale [facility] l 0.63 mg/3 1-09 0.63 mg 3 ity of mL 00:00: (three) [place] nebulizer 00 times Medical solution daily as Branch needed for Wheezing or Shortness of Breath. clotrimazol 2020-09 Yes [id number] Apply to [facility] e-betametha 1-09 area(s) 2 ity of sone cream 00:00: (two) [place] 00 times Medical daily. Branch cyclobenzap 2020-09 Yes [id number] TAKE 1 [facility] rine 5 mg 1-09 TABLET BY ity o f tablet 00:00: MOUTH [place] 00 EVERY 8 Medical HOURS Branch NEEDED econazole 2020-09 Yes [id number] Apply to [facility] nitrate 1 % 09 area(s) 2 ity of cream 00:00: (two) [place] 00 times Medical daily. Branch albuterol 2020-09 Yes [id number] 2{puff} Inhale 2 [facility] (PROAIR 1-09 Puffs ity of HFA) 90 00:00: every 6 [place] mcg/actuati 00 (six) Medical on inhaler hours as Branc h needed for Wheezing or Shortness of Breath. triamcinolo 2020-09 Yes [id number] Apply to [facility] ne 0.025 % 10-04 area(s) 3 ity of ointment 00:00: (three) [place] 00 times Medical daily. For Branch itching cyanocobala 2020-09 Yes [id number] 1000ug 1 mL by [facility] min 1,000 -09 Intramuscu ity of mcg/mL 00:00: lar route [place] injection 00 every 2 Medical (two) Branch weeks. levothyroxi 2020-09 Yes [id number] 50ug Take 1 [facility] ne 50 mcg 10-04 tablet by ity o f tablet 00:00: mouth [place] 00 every Medical morning. Branch fluticasone 2020-09 Yes [id number] 2{puff} Inhale 2 [facility] propionate 1-09 Puffs ity of (FLOVENT 00:00: every 12 [place] HFA) 110 00 (twelve) Medical mcg/actuati hours. Branch on inhaler Rinse mouth after each use. levalbutero 2020-09 Yes [id number] .63mg Inhale [facility] l 0.63 mg/3 -09 0.63 mg 3 ity of mL 00:00: (three) [place] nebulizer 00 times Medical solution daily as Branch needed for Wheezing or Shortness of Breath. clotrimazol 2020-09 Yes [id number] Apply to [facility] e-betametha -09 area(s) 2 ity of sone cream 00:00: (two) [place] 00 times Medical daily. Branch cyclobenzap 2020-09 Yes [id number] TAKE 1 [facility] rine 5 mg -09 TABLET BY ity o f tablet 00:00: MOUTH [place] 00 EVERY 8 Medical HOURS Branch NEEDED econazole 2020-09 Yes [id number] Apply to [facility] nitrate 1 % 1-09 area(s) 2 ity of cream 00:00: (two) [place] 00 times Medical daily. Branch albuterol 2020-09 Yes [id number] 2{puff} Inhale 2 [facility] (PROAIR 1-09 Puffs ity of HFA) 90 00:00: every 6 [place] mcg/actuati 00 (six) Medical on inhaler hours as Branc h needed for Wheezing or Shortness of Breath. triamcinolo 2020-09 Yes [id number] Apply to [facility] ne 0.025 % -09 area(s) 3 ity of ointment 00:00: (three) [place] 00 times Medical daily. For Branch itching cyanocobala 2020-09 Yes [id number] 1000ug 1 mL by [facility] min 1,000 1-09 Intramuscu ity of mcg/mL 00:00: lar route [place] injection 00 every 2 Medical (two) Branch weeks. levothyroxi 2020-09 Yes [id number] 50ug Take 1 [facility] ne 50 mcg -09 tablet by ity o f tablet 00:00: mouth [place] 00 every Medical morning. Branch fluticasone 2020-09 Yes [id number] 2{puff} Inhale 2 [facility] propionate 1-09 Puffs ity of (FLOVENT 00:00: every 12 [place] HFA) 110 00 (twelve) Medical mcg/actuati hours. Branch on inhaler Rinse mouth after each use. levalbutero 2020-09 Yes [id number] .63mg Inhale [facility] l 0.63 mg/3 1-09 0.63 mg 3 ity of mL 00:00: (three) [place] nebulizer 00 times Medical solution daily as Branch needed for Wheezing or Shortness of Breath. clotrimazol 2020-09 Yes [id number] Apply to [facility] e-betametha -09 area(s) 2 ity of sone cream 00:00: (two) [place] 00 times Medical daily. Branch cyclobenzap 2020-09 Yes [id number] TAKE 1 [facility] rine 5 mg -09 TABLET BY ity o f tablet 00:00: MOUTH [place] 00 EVERY 8 Medical HOURS Branch NEEDED econazole 2020-09 Yes [id number] Apply to [facility] nitrate 1 % -09 area(s) 2 ity of cream 00:00: (two) [place] 00 times Medical daily. Branch albuterol 2020-09 Yes [id number] 2{puff} Inhale 2 [facility] (PROAIR 1-09 Puffs ity of HFA) 90 00:00: every 6 [place] mcg/actuati 00 (six) Medical on inhaler hours as Branc h needed for Wheezing or Shortness of Breath. triamcinolo 2020-09 Yes [id number] Apply to [facility] ne 0.025 % -09 area(s) 3 ity of ointment 00:00: (three) [place] 00 times Medical daily. For Branch itching cyanocobala 2020-09 Yes [id number] 1000ug 1 mL by [facility] min 1,000 1-09 Intramuscu ity of mcg/mL 00:00: lar route [place] injection 00 every 2 Medical (two) Branch weeks. levothyroxi 2020-09 Yes [id number] 50ug Take 1 [facility] ne 50 mcg -09 tablet by ity o f tablet 00:00: mouth [place] 00 every Medical morning. Branch fluticasone 2020-09 Yes [id number] 2{puff} Inhale 2 [facility] propionate 1-09 Puffs ity of (FLOVENT 00:00: every 12 [place] HFA) 110 00 (twelve) Medical mcg/actuati hours. Branch on inhaler Rinse mouth after each use. levalbutero 2020-09 Yes [id number] .63mg Inhale [facility] l 0.63 mg/3 1-09 0.63 mg 3 ity of mL 00:00: (three) [place] nebulizer 00 times Medical solution daily as Branch needed for Wheezing or Shortness of Breath. clotrimazol 2020-09 Yes [id number] Apply to [facility] e-betametha -09 area(s) 2 ity of sone cream 00:00: (two) [place] 00 times Medical daily. Branch cyclobenzap 2020-09 Yes [id number] TAKE 1 [facility] rine 5 mg 1-09 TABLET BY ity o f tablet 00:00: MOUTH [place] 00 EVERY 8 Medical HOURS Branch NEEDED econazole 2020-09 Yes [id number] Apply to [facility] nitrate 1 % 1-09 area(s) 2 ity of cream 00:00: (two) [place] 00 times Medical daily. Branch albuterol 2020-09 Yes [id number] 2{puff} Inhale 2 [facility] (PROAIR 1-09 Puffs ity of HFA) 90 00:00: every 6 [place] mcg/actuati 00 (six) Medical on inhaler hours as Branc h needed for Wheezing or Shortness of Breath. triamcinolo 2020-09 Yes [id number] Apply to [facility] ne 0.025 % 10-04 area(s) 3 ity of ointment 00:00: (three) [place] 00 times Medical daily. For Branch itching cyanocobala 2020-09 Yes [id number] 1000ug 1 mL by [facility] min 1,000 09 Intramuscu ity of mcg/mL 00:00: lar route [place] injection 00 every 2 Medical (two) Branch weeks. levothyroxi 2020-09 Yes [id number] 50ug Take 1 [facility] ne 50 mcg -09 tablet by ity o f tablet 00:00: mouth [place] 00 every Medical morning. Branch fluticasone 2020-09 Yes [id number] 2{puff} Inhale 2 [facility] propionate 1-09 Puffs ity of (FLOVENT 00:00: every 12 [place] HFA) 110 00 (twelve) Medical mcg/actuati hours. Branch on inhaler Rinse mouth after each use. levalbutero 2020-09 Yes [id number] .63mg Inhale [facility] l 0.63 mg/3 -09 0.63 mg 3 ity of mL 00:00: (three) [place] nebulizer 00 times Medical solution daily as Branch needed for Wheezing or Shortness of Breath. clotrimazol 2020-09 Yes [id number] Apply to [facility] e-betametha 10-04 area(s) 2 ity of sone cream 00:00: (two) [place] 00 times Medical daily. Branch cyclobenzap 2020-09 Yes [id number] TAKE 1 [facility] rine 5 mg -09 TABLET BY ity o f tablet 00:00: MOUTH [place] 00 EVERY 8 Medical HOURS Branch NEEDED econazole 2020-09 Yes [id number] Apply to [facility] nitrate 1 % -09 area(s) 2 ity of cream 00:00: (two) [place] 00 times Medical daily. Branch albuterol 2020-09 Yes [id number] 2{puff} Inhale 2 [facility] (PROAIR 1-09 Puffs ity of HFA) 90 00:00: every 6 [place] mcg/actuati 00 (six) Medical on inhaler hours as Branc h needed for Wheezing or Shortness of Breath. triamcinolo 2020-09 Yes [id number] Apply to [facility] ne 0.025 % 1-09 area(s) 3 ity of ointment 00:00: (three) [place] 00 times Medical daily. For Branch itching cyanocobala 2020-09 Yes [id number] 1000ug 1 mL by [facility] min 1,000 1-09 Intramuscu ity of mcg/mL 00:00: lar route [place] injection 00 every 2 Medical (two) Branch weeks. levothyroxi 2020-09 Yes [id number] 50ug Take 1 [facility] ne 50 mcg 1-09 tablet by ity o f tablet 00:00: mouth [place] 00 every Medical morning. Branch fluticasone 2020-09 Yes [id number] 2{puff} Inhale 2 [facility] propionate 1-09 Puffs ity of (FLOVENT 00:00: every 12 [place] HFA) 110 00 (twelve) Medical mcg/actuati hours. Branch on inhaler Rinse mouth after each use. levalbutero 2020-09 Yes [id number] .63mg Inhale [facility] l 0.63 mg/3 1-09 0.63 mg 3 ity of mL 00:00: (three) [place] nebulizer 00 times Medical solution daily as Branch needed for Wheezing or Shortness of Breath. clotrimazol 2020-09 Yes [id number] Apply to [facility] e-betametha -09 area(s) 2 ity of sone cream 00:00: (two) [place] 00 times Medical daily. Branch cyclobenzap 2020-09 Yes [id number] TAKE 1 [facility] rine 5 mg -09 TABLET BY ity o f tablet 00:00: MOUTH [place] 00 EVERY 8 Medical HOURS Branch NEEDED econazole 2020-09 Yes [id number] Apply to [facility] nitrate 1 % -09 area(s) 2 ity of cream 00:00: (two) [place] 00 times Medical daily. Branch albuterol 2020-09 Yes [id number] 2{puff} Inhale 2 [facility] (PROAIR 1-09 Puffs ity of HFA) 90 00:00: every 6 [place] mcg/actuati 00 (six) Medical on inhaler hours as Branc h needed for Wheezing or Shortness of Breath. triamcinolo 2020-09 Yes [id number] Apply to [facility] ne 0.025 % 09 area(s) 3 ity of ointment 00:00: (three) [place] 00 times Medical daily. For Branch itching cyanocobala 2020-09 Yes [id number] 1000ug 1 mL by [facility] min 1,000 -09 Intramuscu ity of mcg/mL 00:00: lar route [place] injection 00 every 2 Medical (two) Branch weeks. levothyroxi 2020-09 Yes [id number] 50ug Take 1 [facility] ne 50 mcg 1-09 tablet by ity o f tablet 00:00: mouth [place] 00 every Medical morning. Branch fluticasone 2020-09 Yes [id number] 2{puff} Inhale 2 [facility] propionate 1-09 Puffs ity of (FLOVENT 00:00: every 12 [place] HFA) 110 00 (twelve) Medical mcg/actuati hours. Branch on inhaler Rinse mouth after each use. levalbutero 2020-09 Yes [id number] .63mg Inhale [facility] l 0.63 mg/3 1-09 0.63 mg 3 ity of mL 00:00: (three) [place] nebulizer 00 times Medical solution daily as Branch needed for Wheezing or Shortness of Breath. clotrimazol 2020-09 Yes [id number] Apply to [facility] e-betametha 10-04 area(s) 2 ity of sone cream 00:00: (two) [place] 00 times Medical daily. Branch cyclobenzap 2020-09 Yes [id number] TAKE 1 [facility] rine 5 mg -09 TABLET BY ity o f tablet 00:00: MOUTH [place] 00 EVERY 8 Medical HOURS Branch NEEDED econazole 2020-09 Yes [id number] Apply to [facility] nitrate 1 % 09 area(s) 2 ity of cream 00:00: (two) [place] 00 times Medical daily. Branch albuterol 2020-09 Yes [id number] 2{puff} Inhale 2 [facility] (PROAIR 1-09 Puffs ity of HFA) 90 00:00: every 6 [place] mcg/actuati 00 (six) Medical on inhaler hours as Branc h needed for Wheezing or Shortness of Breath. triamcinolo 2020-09 Yes [id number] Apply to [facility] ne 0.025 % - area(s) 3 ity of ointment 00:00: (three) [place] 00 times Medical daily. For Branch itching cyanocobala 2020-09 Yes [id number] 1000ug 1 mL by [facility] min 1,000 -09 Intramuscu ity of mcg/mL 00:00: lar route [place] injection 00 every 2 Medical (two) Branch weeks. levothyroxi 2020-09 Yes [id number] 50ug Take 1 [facility] ne 50 mcg -09 tablet by ity o f tablet 00:00: mouth [place] 00 every Medical morning. Branch fluticasone 2020-09 Yes [id number] 2{puff} Inhale 2 [facility] propionate 1-09 Puffs ity of (FLOVENT 00:00: every 12 [place] HFA) 110 00 (twelve) Medical mcg/actuati hours. Branch on inhaler Rinse mouth after each use. levalbutero 2020-09 Yes [id number] .63mg Inhale [facility] l 0.63 mg/3 -09 0.63 mg 3 ity of mL 00:00: (three) [place] nebulizer 00 times Medical solution daily as Branch needed for Wheezing or Shortness of Breath. clotrimazol 2020-09 Yes [id number] Apply to [facility] e-betametha 10-04 area(s) 2 ity of sone cream 00:00: (two) [place] 00 times Medical daily. Branch cyclobenzap 2020-09 Yes [id number] TAKE 1 [facility] rine 5 mg -09 TABLET BY ity o f tablet 00:00: MOUTH [place] 00 EVERY 8 Medical HOURS Branch NEEDED econazole 2020-09 Yes [id number] Apply to [facility] nitrate 1 % 09 area(s) 2 ity of cream 00:00: (two) [place] 00 times Medical daily. Branch albuterol 2020-09 Yes [id number] 2{puff} Inhale 2 [facility] (PROAIR 1-09 Puffs ity of HFA) 90 00:00: every 6 [place] mcg/actuati 00 (six) Medical on inhaler hours as Branc h needed for Wheezing or Shortness of Breath. triamcinolo 2020-09 Yes [id number] Apply to [facility] ne 0.025 % -09 area(s) 3 ity of ointment 00:00: (three) [place] 00 times Medical daily. For Branch itching cyanocobala 2020-09 Yes [id number] 1000ug 1 mL by [facility] min 1,000 1-09 Intramuscu ity of mcg/mL 00:00: lar route [place] injection 00 every 2 Medical (two) Branch weeks. levothyroxi 2020-09 Yes [id number] 50ug Take 1 [facility] ne 50 mcg 1-09 tablet by ity o f tablet 00:00: mouth [place] 00 every Medical morning. Branch fluticasone 2020-09 Yes [id number] 2{puff} Inhale 2 [facility] propionate 1-09 Puffs ity of (FLOVENT 00:00: every 12 [place] HFA) 110 00 (twelve) Medical mcg/actuati hours. Branch on inhaler Rinse mouth after each use. levalbutero 2020-09 Yes [id number] .63mg Inhale [facility] l 0.63 mg/3 1-09 0.63 mg 3 ity of mL 00:00: (three) [place] nebulizer 00 times Medical solution daily as Branch needed for Wheezing or Shortness of Breath. clotrimazol 2020-09 Yes [id number] Apply to [facility] e-betametha 1-09 area(s) 2 ity of sone cream 00:00: (two) [place] 00 times Medical daily. Branch cyclobenzap 2020-09 Yes [id number] TAKE 1 [facility] rine 5 mg 1-09 TABLET BY ity o f tablet 00:00: MOUTH [place] 00 EVERY 8 Medical HOURS Branch NEEDED econazole 2020-09 Yes [id number] Apply to [facility] nitrate 1 % 1-09 area(s) 2 ity of cream 00:00: (two) [place] 00 times Medical daily. Branch albuterol 2020-09 Yes [id number] 2{puff} Inhale 2 [facility] (PROAIR 1-09 Puffs ity of HFA) 90 00:00: every 6 [place] mcg/actuati 00 (six) Medical on inhaler hours as Branc h needed for Wheezing or Shortness of Breath. triamcinolo 2020-09 Yes [id number] Apply to [facility] ne 0.025 % 1-09 area(s) 3 ity of ointment 00:00: (three) [place] 00 times Medical daily. For Branch itching cyanocobala 2020-09 Yes [id number] 1000ug 1 mL by [facility] min 1,000 1-09 Intramuscu ity of mcg/mL 00:00: lar route [place] injection 00 every 2 Medical (two) Branch weeks. levothyroxi 2020-09 Yes [id number] 50ug Take 1 [facility] ne 50 mcg 1-09 tablet by ity o f tablet 00:00: mouth [place] 00 every Medical morning. Branch fluticasone 2020-09 Yes [id number] 2{puff} Inhale 2 [facility] propionate 1-09 Puffs ity of (FLOVENT 00:00: every 12 [place] HFA) 110 00 (twelve) Medical mcg/actuati hours. Branch on inhaler Rinse mouth after each use. levalbutero 2020-09 Yes [id number] .63mg Inhale [facility] l 0.63 mg/3 1-09 0.63 mg 3 ity of mL 00:00: (three) [place] nebulizer 00 times Medical solution daily as Branch needed for Wheezing or Shortness of Breath. clotrimazol 2020-09 Yes [id number] Apply to [facility] e-betametha -09 area(s) 2 ity of sone cream 00:00: (two) [place] 00 times Medical daily. Branch cyclobenzap 2020-09 Yes [id number] TAKE 1 [facility] rine 5 mg -09 TABLET BY ity o f tablet 00:00: MOUTH [place] 00 EVERY 8 Medical HOURS Branch NEEDED econazole 2020-09 Yes [id number] Apply to [facility] nitrate 1 % -09 area(s) 2 ity of cream 00:00: (two) [place] 00 times Medical daily. Branch albuterol 2020-09 Yes [id number] 2{puff} Inhale 2 [facility] (PROAIR 1-09 Puffs ity of HFA) 90 00:00: every 6 [place] mcg/actuati 00 (six) Medical on inhaler hours as Branc h needed for Wheezing or Shortness of Breath. triamcinolo 2020-09 Yes [id number] Apply to [facility] ne 0.025 % 1-09 area(s) 3 ity of ointment 00:00: (three) [place] 00 times Medical daily. For Branch itching cyanocobala 2020-09 Yes [id number] 1000ug 1 mL by [facility] min 1,000 1-09 Intramuscu ity of mcg/mL 00:00: lar route [place] injection 00 every 2 Medical (two) Branch weeks. levothyroxi 2020-09 Yes [id number] 50ug Take 1 [facility] ne 50 mcg 1-09 tablet by ity o f tablet 00:00: mouth [place] 00 every Medical morning. Branch fluticasone 2020-09 Yes [id number] 2{puff} Inhale 2 [facility] propionate 1-09 Puffs ity of (FLOVENT 00:00: every 12 [place] HFA) 110 00 (twelve) Medical mcg/actuati hours. Branch on inhaler Rinse mouth after each use. levalbutero 2020-09 Yes [id number] .63mg Inhale [facility] l 0.63 mg/3 1-09 0.63 mg 3 ity of mL 00:00: (three) [place] nebulizer 00 times Medical solution daily as Branch needed for Wheezing or Shortness of Breath. clotrimazol 2020-09 Yes [id number] Apply to [facility] e-betametha -09 area(s) 2 ity of sone cream 00:00: (two) [place] 00 times Medical daily. Branch cyclobenzap 2020-09 Yes [id number] TAKE 1 [facility] rine 5 mg 1-09 TABLET BY ity o f tablet 00:00: MOUTH [place] 00 EVERY 8 Medical HOURS Branch NEEDED econazole 2020-09 Yes [id number] Apply to [facility] nitrate 1 % -09 area(s) 2 ity of cream 00:00: (two) [place] 00 times Medical daily. Branch albuterol 2020-09 Yes [id number] 2{puff} Inhale 2 [facility] (PROAIR 1-09 Puffs ity of HFA) 90 00:00: every 6 [place] mcg/actuati 00 (six) Medical on inhaler hours as Branc h needed for Wheezing or Shortness of Breath. triamcinolo 2020-09 Yes [id number] Apply to [facility] ne 0.025 % 1-09 area(s) 3 ity of ointment 00:00: (three) [place] 00 times Medical daily. For Branch itching cyanocobala 2020-09 Yes [id number] 1000ug 1 mL by [facility] min 1,000 1-09 Intramuscu ity of mcg/mL 00:00: lar route [place] injection 00 every 2 Medical (two) Branch weeks. levothyroxi 2020-09 Yes [id number] 50ug Take 1 [facility] ne 50 mcg 1-09 tablet by ity o f tablet 00:00: mouth [place] 00 every Medical morning. Branch fluticasone 2020-09 Yes [id number] 2{puff} Inhale 2 [facility] propionate 1-09 Puffs ity of (FLOVENT 00:00: every 12 [place] HFA) 110 00 (twelve) Medical mcg/actuati hours. Branch on inhaler Rinse mouth after each use. levalbutero 2020-09 Yes [id number] .63mg Inhale [facility] l 0.63 mg/3 1-09 0.63 mg 3 ity of mL 00:00: (three) [place] nebulizer 00 times Medical solution daily as Branch needed for Wheezing or Shortness of Breath. clotrimazol 2020-09 Yes [id number] Apply to [facility] e-betametha 1-09 area(s) 2 ity of sone cream 00:00: (two) [place] 00 times Medical daily. Branch cyclobenzap 2020-09 Yes [id number] TAKE 1 [facility] rine 5 mg 1-09 TABLET BY ity o f tablet 00:00: MOUTH [place] 00 EVERY 8 Medical HOURS Branch NEEDED econazole 2020-09 Yes [id number] Apply to [facility] nitrate 1 % 1-09 area(s) 2 ity of cream 00:00: (two) [place] 00 times Medical daily. Branch albuterol 2020-09 Yes [id number] 2{puff} Inhale 2 [facility] (PROAIR 1-09 Puffs ity of HFA) 90 00:00: every 6 [place] mcg/actuati 00 (six) Medical on inhaler hours as Branc h needed for Wheezing or Shortness of Breath. triamcinolo 2020-09 Yes [id number] Apply to [facility] ne 0.025 % 1-09 area(s) 3 ity of ointment 00:00: (three) [place] 00 times Medical daily. For Branch itching cyanocobala 2020-09 Yes [id number] 1000ug 1 mL by [facility] min 1,000 1-09 Intramuscu ity of mcg/mL 00:00: lar route [place] injection 00 every 2 Medical (two) Branch weeks. levothyroxi 2020-09 Yes [id number] 50ug Take 1 [facility] ne 50 mcg 1-09 tablet by ity o f tablet 00:00: mouth [place] 00 every Medical morning. Branch fluticasone 2020-09 Yes [id number] 2{puff} Inhale 2 [facility] propionate 1-09 Puffs ity of (FLOVENT 00:00: every 12 [place] HFA) 110 00 (twelve) Medical mcg/actuati hours. Branch on inhaler Rinse mouth after each use. levalbutero 2020-09 Yes [id number] .63mg Inhale [facility] l 0.63 mg/3 1-09 0.63 mg 3 ity of mL 00:00: (three) [place] nebulizer 00 times Medical solution daily as Branch needed for Wheezing or Shortness of Breath. clotrimazol 2020-09 Yes [id number] Apply to [facility] e-betametha -09 area(s) 2 ity of sone cream 00:00: (two) [place] 00 times Medical daily. Branch cyclobenzap 2020-09 Yes [id number] TAKE 1 [facility] rine 5 mg -09 TABLET BY ity o f tablet 00:00: MOUTH [place] 00 EVERY 8 Medical HOURS Branch NEEDED econazole 2020-09 Yes [id number] Apply to [facility] nitrate 1 % -09 area(s) 2 ity of cream 00:00: (two) [place] 00 times Medical daily. Branch albuterol 2020-09 Yes [id number] 2{puff} Inhale 2 [facility] (PROAIR 1-09 Puffs ity of HFA) 90 00:00: every 6 [place] mcg/actuati 00 (six) Medical on inhaler hours as Branc h needed for Wheezing or Shortness of Breath. triamcinolo 2020-09 Yes [id number] Apply to [facility] ne 0.025 % 1-09 area(s) 3 ity of ointment 00:00: (three) [place] 00 times Medical daily. For Branch itching cyanocobala 2020-09 Yes [id number] 1000ug 1 mL by [facility] min 1,000 1-09 Intramuscu ity of mcg/mL 00:00: lar route [place] injection 00 every 2 Medical (two) Branch weeks. levothyroxi 2020-09 Yes [id number] 50ug Take 1 [facility] ne 50 mcg 1-09 tablet by ity o f tablet 00:00: mouth [place] 00 every Medical morning. Branch fluticasone 2020-09 Yes [id number] 2{puff} Inhale 2 [facility] propionate 1-09 Puffs ity of (FLOVENT 00:00: every 12 [place] HFA) 110 00 (twelve) Medical mcg/actuati hours. Branch on inhaler Rinse mouth after each use. levalbutero 2020-09 Yes [id number] .63mg Inhale [facility] l 0.63 mg/3 1-09 0.63 mg 3 ity of mL 00:00: (three) [place] nebulizer 00 times Medical solution daily as Branch needed for Wheezing or Shortness of Breath. clotrimazol 2020-09 Yes [id number] Apply to [facility] e-betametha -09 area(s) 2 ity of sone cream 00:00: (two) [place] 00 times Medical daily. Branch cyclobenzap 2020-09 Yes [id number] TAKE 1 [facility] rine 5 mg 1-09 TABLET BY ity o f tablet 00:00: MOUTH [place] 00 EVERY 8 Medical HOURS Branch NEEDED econazole 2020-09 Yes [id number] Apply to [facility] nitrate 1 % -09 area(s) 2 ity of cream 00:00: (two) [place] 00 times Medical daily. Branch albuterol 2020-09 Yes [id number] 2{puff} Inhale 2 [facility] (PROAIR 1-09 Puffs ity of HFA) 90 00:00: every 6 [place] mcg/actuati 00 (six) Medical on inhaler hours as Branc h needed for Wheezing or Shortness of Breath. triamcinolo 2020-09 Yes [id number] Apply to [facility] ne 0.025 % 1-09 area(s) 3 ity of ointment 00:00: (three) [place] 00 times Medical daily. For Branch itching cyanocobala 2020-09 Yes [id number] 1000ug 1 mL by [facility] min 1,000 1-09 Intramuscu ity of mcg/mL 00:00: lar route [place] injection 00 every 2 Medical (two) Branch weeks. levothyroxi 2020-09 Yes [id number] 50ug Take 1 [facility] ne 50 mcg 1-09 tablet by ity o f tablet 00:00: mouth [place] 00 every Medical morning. Branch fluticasone 2020-09 Yes [id number] 2{puff} Inhale 2 [facility] propionate 1-09 Puffs ity of (FLOVENT 00:00: every 12 [place] HFA) 110 00 (twelve) Medical mcg/actuati hours. Branch on inhaler Rinse mouth after each use. levalbutero 2020-09 Yes [id number] .63mg Inhale [facility] l 0.63 mg/3 1-09 0.63 mg 3 ity of mL 00:00: (three) [place] nebulizer 00 times Medical solution daily as Branch needed for Wheezing or Shortness of Breath. clotrimazol 2020-09 Yes [id number] Apply to [facility] e-betametha 1-09 area(s) 2 ity of sone cream 00:00: (two) [place] 00 times Medical daily. Branch cyclobenzap 2020-09 Yes [id number] TAKE 1 [facility] rine 5 mg -09 TABLET BY ity o f tablet 00:00: MOUTH [place] 00 EVERY 8 Medical HOURS Branch NEEDED econazole 2020-09 Yes [id number] Apply to [facility] nitrate 1 % -09 area(s) 2 ity of cream 00:00: (two) [place] 00 times Medical daily. Branch albuterol 2020-09 Yes [id number] 2{puff} Inhale 2 [facility] (PROAIR 1-09 Puffs ity of HFA) 90 00:00: every 6 [place] mcg/actuati 00 (six) Medical on inhaler hours as Branc h needed for Wheezing or Shortness of Breath. triamcinolo 2020-09 Yes [id number] Apply to [facility] ne 0.025 % -09 area(s) 3 ity of ointment 00:00: (three) [place] 00 times Medical daily. For Branch itching cyanocobala 2020-09 Yes [id number] 1000ug 1 mL by [facility] min 1,000 1-09 Intramuscu ity of mcg/mL 00:00: lar route [place] injection 00 every 2 Medical (two) Branch weeks. levothyroxi 2020-09 Yes [id number] 50ug Take 1 [facility] ne 50 mcg 1-09 tablet by ity o f tablet 00:00: mouth [place] 00 every Medical morning. Branch fluticasone 2020-09 Yes [id number] 2{puff} Inhale 2 [facility] propionate 1-09 Puffs ity of (FLOVENT 00:00: every 12 [place] HFA) 110 00 (twelve) Medical mcg/actuati hours. Branch on inhaler Rinse mouth after each use. levalbutero 2020-09 Yes [id number] .63mg Inhale [facility] l 0.63 mg/3 1-09 0.63 mg 3 ity of mL 00:00: (three) [place] nebulizer 00 times Medical solution daily as Branch needed for Wheezing or Shortness of Breath. clotrimazol 2020-09 Yes [id number] Apply to [facility] e-betametha -09 area(s) 2 ity of sone cream 00:00: (two) [place] 00 times Medical daily. Branch cyclobenzap 2020-09 Yes [id number] TAKE 1 [facility] rine 5 mg -09 TABLET BY ity o f tablet 00:00: MOUTH [place] 00 EVERY 8 Medical HOURS Branch NEEDED econazole 2020-09 Yes [id number] Apply to [facility] nitrate 1 % 10-04 area(s) 2 ity of cream 00:00: (two) [place] 00 times Medical daily. Branch albuterol 2020-09 Yes [id number] 2{puff} Inhale 2 [facility] (PROAIR 1-09 Puffs ity of HFA) 90 00:00: every 6 [place] mcg/actuati 00 (six) Medical on inhaler hours as Branc h needed for Wheezing or Shortness of Breath. triamcinolo 2020-09 Yes [id number] Apply to [facility] ne 0.025 % 09 area(s) 3 ity of ointment 00:00: (three) [place] 00 times Medical daily. For Branch itching cyanocobala 2020-09 Yes [id number] 1000ug 1 mL by [facility] min 1,000 1-09 Intramuscu ity of mcg/mL 00:00: lar route [place] injection 00 every 2 Medical (two) Branch weeks. levothyroxi 2020-09 Yes [id number] 50ug Take 1 [facility] ne 50 mcg 1-09 tablet by it[facility] o f tablet 00:00: mouth [place] 00 every Medical morning. Branch fluticasone 2020-09 Yes [id number] 2{puff} Inhale 2 [facility] propionate 1-09 Puffs ity of (FLOVENT 00:00: every 12 [place] HFA) 110 00 (twelve) Medical mcg/actuati hours. Branch on inhaler Rinse mouth after each use. levalbutero 2020-09 Yes [id number] .63mg Inhale [facility] l 0.63 mg/3 1-09 0.63 mg 3 ity of mL 00:00: (three) [place] nebulizer 00 times Medical solution daily as Branch needed for Wheezing or Shortness of Breath. clotrimazol 2020-09 Yes [id number] Apply to [facility] e-betametha 09 area(s) 2 ity of sone cream 00:00: (two) [place] 00 times Medical daily. Branch cyclobenzap 2020-09 Yes [id number] TAKE 1 [facility] rine 5 mg 10-04 TABLET BY it[facility] o f tablet 00:00: MOUTH [place] 00 EVERY 8 Medical HOURS Branch NEEDED econazole 2020-09 Yes [id number] Apply to [facility] nitrate 1 % 10-04 area(s) 2 ity of cream 00:00: (two) [place] 00 times Medical daily. Branch albuterol 2020-09 Yes [id number] 2{puff} Inhale 2 [facility] (PROAIR 1-09 Puffs ity of HFA) 90 00:00: every 6 [place] mcg/actuati 00 (six) Medical on inhaler hours as Branc h needed for Wheezing or Shortness of Breath. triamcinolo 2020-09 Yes [id number] Apply to [facility] ne 0.025 % 10-04 area(s) 3 ity of ointment 00:00: (three) [place] 00 times Medical daily. For Branch itching cyanocobala 2020-09 Yes [id number] 1000ug 1 mL by [facility] min 1,000 -09 Intramuscu ity of mcg/mL 00:00: lar route [place] injection 00 every 2 Medical (two) Branch weeks. levothyroxi 2020-09 Yes [id number] 50ug Take 1 [facility] ne 50 mcg -09 tablet by it[facility] o f tablet 00:00: mouth [place] 00 every Medical morning. Branch fluticasone 2020-09 Yes [id number] 2{puff} Inhale 2 [facility] propionate 1-09 Puffs ity of (FLOVENT 00:00: every 12 [place] HFA) 110 00 (twelve) Medical mcg/actuati hours. Branch on inhaler Rinse mouth after each use. levalbutero 2020-09 Yes [id number] .63mg Inhale [facility] l 0.63 mg/3 1-09 0.63 mg 3 ity of mL 00:00: (three) [place] nebulizer 00 times Medical solution daily as Branch needed for Wheezing or Shortness of Breath. clotrimazol 2020-09 Yes [id number] Apply to [facility] e-betametha 10-04 area(s) 2 ity of sone cream 00:00: (two) [place] 00 times Medical daily. Branch cyclobenzap 2020-09 Yes [id number] TAKE 1 [facility] rine 5 mg 10-04 TABLET BY ity o f tablet 00:00: MOUTH [place] 00 EVERY 8 Medical HOURS Branch NEEDED econazole 2020-09 Yes [id number] Apply to [facility] nitrate 1 % 10-04 area(s) 2 ity of cream 00:00: (two) [place] 00 times Medical daily. Branch albuterol 2020-09 Yes [id number] 2{puff} Inhale 2 [facility] (PROAIR 1-09 Puffs ity of HFA) 90 00:00: every 6 [place] mcg/actuati 00 (six) Medical on inhaler hours as Branc h needed for Wheezing or Shortness of Breath. triamcinolo 2020-09 Yes [id number] Apply to [facility] ne 0.025 % 10-04 area(s) 3 ity of ointment 00:00: (three) [place] 00 times Medical daily. For Branch itching cyanocobala 2020-09 Yes [id number] 1000ug 1 mL by [facility] min 1,000 -09 Intramuscu ity of mcg/mL 00:00: lar route [place] injection 00 every 2 Medical (two) Branch weeks. levothyroxi 2020-09 Yes [id number] 50ug Take 1 [facility] ne 50 mcg -09 tablet by ity o f tablet 00:00: mouth [place] 00 every Medical morning. Branch fluticasone 2020-09 Yes [id number] 2{puff} Inhale 2 [facility] propionate 1-09 Puffs ity of (FLOVENT 00:00: every 12 [place] HFA) 110 00 (twelve) Medical mcg/actuati hours. Branch on inhaler Rinse mouth after each use. levalbutero 2020-09 Yes [id number] .63mg Inhale [facility] l 0.63 mg/3 -09 0.63 mg 3 ity of mL 00:00: (three) [place] nebulizer 00 times Medical solution daily as Branch needed for Wheezing or Shortness of Breath. clotrimazol 2020-09 Yes [id number] Apply to [facility] e-betametha 09 area(s) 2 ity of sone cream 00:00: (two) [place] 00 times Medical daily. Branch cyclobenzap 2020-09 Yes [id number] TAKE 1 [facility] rine 5 mg -09 TABLET BY ity o f tablet 00:00: MOUTH [place] 00 EVERY 8 Medical HOURS Branch NEEDED econazole 2020-09 Yes [id number] Apply to [facility] nitrate 1 % 10-04 area(s) 2 ity of cream 00:00: (two) [place] 00 times Medical daily. Branch albuterol 2020-09 Yes [id number] 2{puff} Inhale 2 [facility] (PROAIR 1-09 Puffs ity of HFA) 90 00:00: every 6 [place] mcg/actuati 00 (six) Medical on inhaler hours as Branc h needed for Wheezing or Shortness of Breath. triamcinolo 2020-09 Yes [id number] Apply to [facility] ne 0.025 % 10-04 area(s) 3 ity of ointment 00:00: (three) [place] 00 times Medical daily. For Branch itching cyanocobala 2020-09 Yes [id number] 1000ug 1 mL by [facility] min 1,000 -09 Intramuscu ity of mcg/mL 00:00: lar route [place] injection 00 every 2 Medical (two) Branch weeks. levothyroxi 2020-09 Yes [id number] 50ug Take 1 [facility] ne 50 mcg -09 tablet by ity o f tablet 00:00: mouth [place] 00 every Medical morning. Branch fluticasone 2020-09 Yes [id number] 2{puff} Inhale 2 [facility] propionate 1-09 Puffs ity of (FLOVENT 00:00: every 12 [place] HFA) 110 00 (twelve) Medical mcg/actuati hours. Branch on inhaler Rinse mouth after each use. levalbutero 2020-09 Yes [id number] .63mg Inhale [facility] l 0.63 mg/3 1-09 0.63 mg 3 ity of mL 00:00: (three) [place] nebulizer 00 times Medical solution daily as Branch needed for Wheezing or Shortness of Breath. clotrimazol 2020-09 Yes [id number] Apply to [facility] e-betametha -09 area(s) 2 ity of sone cream 00:00: (two) [place] 00 times Medical daily. Branch cyclobenzap 2020-09 Yes [id number] TAKE 1 [facility] rine 5 mg 1-09 TABLET BY ity o f tablet 00:00: MOUTH [place] 00 EVERY 8 Medical HOURS Branch NEEDED econazole 2020-09 Yes [id number] Apply to [facility] nitrate 1 % -09 area(s) 2 ity of cream 00:00: (two) [place] 00 times Medical daily. Branch albuterol 2020-09 Yes [id number] 2{puff} Inhale 2 [facility] (PROAIR 1-09 Puffs ity of HFA) 90 00:00: every 6 [place] mcg/actuati 00 (six) Medical on inhaler hours as Branc h needed for Wheezing or Shortness of Breath. triamcinolo 2020-09 Yes [id number] Apply to [facility] ne 0.025 % -09 area(s) 3 ity of ointment 00:00: (three) [place] 00 times Medical daily. For Branch itching cyanocobala 2020-09 Yes [id number] 1000ug 1 mL by [facility] min 1,000 1-09 Intramuscu ity of mcg/mL 00:00: lar route [place] injection 00 every 2 Medical (two) Branch weeks. levothyroxi 2020-09 Yes [id number] 50ug Take 1 [facility] ne 50 mcg 1-09 tablet by ity o f tablet 00:00: mouth [place] 00 every Medical morning. Branch fluticasone 2020-09 Yes [id number] 2{puff} Inhale 2 [facility] propionate 1-09 Puffs ity of (FLOVENT 00:00: every 12 [place] HFA) 110 00 (twelve) Medical mcg/actuati hours. Branch on inhaler Rinse mouth after each use. levalbutero 2020-09 Yes [id number] .63mg Inhale [facility] l 0.63 mg/3 1-09 0.63 mg 3 ity of mL 00:00: (three) [place] nebulizer 00 times Medical solution daily as Branch needed for Wheezing or Shortness of Breath. clotrimazol 2020-09 Yes [id number] Apply to [facility] e-betametha 10-04 area(s) 2 ity of sone cream 00:00: (two) [place] 00 times Medical daily. Branch cyclobenzap 2020-09 Yes [id number] TAKE 1 [facility] rine 5 mg -09 TABLET BY ity o f tablet 00:00: MOUTH [place] 00 EVERY 8 Medical HOURS Branch NEEDED econazole 2020-09 Yes [id number] Apply to [facility] nitrate 1 % 10-04 area(s) 2 ity of cream 00:00: (two) [place] 00 times Medical daily. Branch albuterol 2020-09 Yes [id number] 2{puff} Inhale 2 [facility] (PROAIR 1-09 Puffs ity of HFA) 90 00:00: every 6 [place] mcg/actuati 00 (six) Medical on inhaler hours as Branc h needed for Wheezing or Shortness of Breath. triamcinolo 2020-09 Yes [id number] Apply to [facility] ne 0.025 % 10-04 area(s) 3 ity of ointment 00:00: (three) [place] 00 times Medical daily. For Branch itching cyanocobala 2020-09 Yes [id number] 1000ug 1 mL by [facility] min 1,000 1-09 Intramuscu ity of mcg/mL 00:00: lar route [place] injection 00 every 2 Medical (two) Branch weeks. levothyroxi 2020-09 Yes [id number] 50ug Take 1 [facility] ne 50 mcg 09 tablet by ity o f tablet 00:00: mouth [place] 00 every Medical morning. Branch fluticasone 2020-09 Yes [id number] 2{puff} Inhale 2 [facility] propionate 1-09 Puffs ity of (FLOVENT 00:00: every 12 [place] HFA) 110 00 (twelve) Medical mcg/actuati hours. Branch on inhaler Rinse mouth after each use. levalbutero 2020-09 Yes [id number] .63mg Inhale [facility] l 0.63 mg/3 1-09 0.63 mg 3 ity of mL 00:00: (three) [place] nebulizer 00 times Medical solution daily as Branch needed for Wheezing or Shortness of Breath. clotrimazol 2020-09 Yes [id number] Apply to [facility] e-betametha 09 area(s) 2 ity of sone cream 00:00: (two) [place] 00 times Medical daily. Branch cyclobenzap 2020-09 Yes [id number] TAKE 1 [facility] rine 5 mg -09 TABLET BY ity o f tablet 00:00: MOUTH [place] 00 EVERY 8 Medical HOURS Branch NEEDED econazole 2020-09 Yes [id number] Apply to [facility] nitrate 1 % 09 area(s) 2 ity of cream 00:00: (two) [place] 00 times Medical daily. Branch albuterol 2020-09 Yes [id number] 2{puff} Inhale 2 [facility] (PROAIR 1-09 Puffs ity of HFA) 90 00:00: every 6 [place] mcg/actuati 00 (six) Medical on inhaler hours as Branc h needed for Wheezing or Shortness of Breath. triamcinolo 2020-09 Yes [id number] Apply to [facility] ne 0.025 % 10-04 area(s) 3 ity of ointment 00:00: (three) [place] 00 times Medical daily. For Branch itching cyanocobala 2020-09 Yes [id number] 1000ug 1 mL by [facility] min 1,000 1-09 Intramuscu ity of mcg/mL 00:00: lar route [place] injection 00 every 2 Medical (two) Branch weeks. levothyroxi 2020-09 Yes [id number] 50ug Take 1 [facility] ne 50 mcg 09 tablet by ity o f tablet 00:00: mouth [place] 00 every Medical morning. Branch fluticasone 2020-09 Yes [id number] 2{puff} Inhale 2 [facility] propionate 1-09 Puffs ity of (FLOVENT 00:00: every 12 [place] HFA) 110 00 (twelve) Medical mcg/actuati hours. Branch on inhaler Rinse mouth after each use. levalbutero 2020-09 Yes [id number] .63mg Inhale [facility] l 0.63 mg/3 1-09 0.63 mg 3 ity of mL 00:00: (three) [place] nebulizer 00 times Medical solution daily as Branch needed for Wheezing or Shortness of Breath. clotrimazol 2020-09 Yes [id number] Apply to [facility] e-betametha -09 area(s) 2 ity of sone cream 00:00: (two) [place] 00 times Medical daily. Branch cyclobenzap 2020-09 Yes [id number] TAKE 1 [facility] rine 5 mg 1-09 TABLET BY ity o f tablet 00:00: MOUTH [place] 00 EVERY 8 Medical HOURS Branch NEEDED econazole 2020-09 Yes [id number] Apply to [facility] nitrate 1 % -09 area(s) 2 ity of cream 00:00: (two) [place] 00 times Medical daily. Branch albuterol 2020-09 Yes [id number] 2{puff} Inhale 2 [facility] (PROAIR 1-09 Puffs ity of HFA) 90 00:00: every 6 [place] mcg/actuati 00 (six) Medical on inhaler hours as Branc h needed for Wheezing or Shortness of Breath. triamcinolo 2020-09 Yes [id number] Apply to [facility] ne 0.025 % 10-04 area(s) 3 ity of ointment 00:00: (three) [place] 00 times Medical daily. For Branch itching cyanocobala 2020-09 Yes [id number] 1000ug 1 mL by [facility] min 1,000 1-09 Intramuscu ity of mcg/mL 00:00: lar route [place] injection 00 every 2 Medical (two) Branch weeks. fluticasone 2020-09 Yes [id number] 2{puff} Inhale 2 [facility] propionate 1-09 Puffs ity of (FLOVENT 00:00: every 12 [place] HFA) 110 00 (twelve) Medical mcg/actuati hours. Branch on inhaler Rinse mouth after each use. levalbutero 2020-09 Yes [id number] .63mg Inhale [facility] l 0.63 mg/3 1-09 0.63 mg 3 ity of mL 00:00: (three) [place] nebulizer 00 times Medical solution daily as Branch needed for Wheezing or Shortness of Breath. clotrimazol 2020-09 Yes [id number] Apply to [facility] e-betametha -09 area(s) 2 ity of sone cream 00:00: (two) [place] 00 times Medical daily. Branch cyclobenzap 2020-09 Yes [id number] TAKE 1 [facility] rine 5 mg 1-09 TABLET BY ity o f tablet 00:00: MOUTH [place] 00 EVERY 8 Medical HOURS Branch NEEDED econazole 2020-09 Yes [id number] Apply to [facility] nitrate 1 % 1-09 area(s) 2 ity of cream 00:00: (two) [place] 00 times Medical daily. Branch albuterol 2020-09 Yes [id number] 2{puff} Inhale 2 [facility] (PROAIR 1-09 Puffs ity of HFA) 90 00:00: every 6 [place] mcg/actuati 00 (six) Medical on inhaler hours as Branc h needed for Wheezing or Shortness of Breath. triamcinolo 2020-09 Yes [id number] Apply to [facility] ne 0.025 % - area(s) 3 ity of ointment 00:00: (three) [place] 00 times Medical daily. For Branch itching cyanocobala 2020-09 Yes [id number] 1000ug 1 mL by [facility] min 1,000 1-09 Intramuscu ity of mcg/mL 00:00: lar route [place] injection 00 every 2 Medical (two) Branch weeks. fluticasone 2020-09 Yes [id number] 2{puff} Inhale 2 [facility] propionate 1-09 Puffs ity of (FLOVENT 00:00: every 12 [place] HFA) 110 00 (twelve) Medical mcg/actuati hours. Branch on inhaler Rinse mouth after each use. levalbutero 2020-09 Yes [id number] .63mg Inhale [facility] l 0.63 mg/3 1-09 0.63 mg 3 ity of mL 00:00: (three) [place] nebulizer 00 times Medical solution daily as Branch needed for Wheezing or Shortness of Breath. clotrimazol 2020-09 Yes [id number] Apply to [facility] e-betametha 1-09 area(s) 2 ity of sone cream 00:00: (two) [place] 00 times Medical daily. Branch cyclobenzap 2020-09 Yes [id number] TAKE 1 [facility] rine 5 mg 1-09 TABLET BY ity o f tablet 00:00: MOUTH [place] 00 EVERY 8 Medical HOURS Branch NEEDED econazole 2020-09 Yes [id number] Apply to [facility] nitrate 1 % 1-09 area(s) 2 ity of cream 00:00: (two) [place] 00 times Medical daily. Branch albuterol 2020-09 Yes [id number] 2{puff} Inhale 2 [facility] (PROAIR 1-09 Puffs ity of HFA) 90 00:00: every 6 [place] mcg/actuati 00 (six) Medical on inhaler hours as Branc h needed for Wheezing or Shortness of Breath. triamcinolo 2020-09 Yes [id number] Apply to [facility] ne 0.025 % 1-09 area(s) 3 ity of ointment 00:00: (three) [place] 00 times Medical daily. For Branch itching cyanocobala 2020-09 Yes [id number] 1000ug 1 mL by [facility] min 1,000 1-09 Intramuscu ity of mcg/mL 00:00: lar route [place] injection 00 every 2 Medical (two) Branch weeks. levalbutero 2020-09 Yes [id number] .63mg Inhale [facility] l 0.63 mg/3 1-09 0.63 mg 3 ity of mL 00:00: (three) [place] nebulizer 00 times Medical solution daily as Branch needed for Wheezing or Shortness of Breath. cyclobenzap 2020-09 Yes [id number] TAKE 1 [facility] rine 5 mg 1-09 TABLET BY ity o f tablet 00:00: MOUTH [place] 00 EVERY 8 Medical HOURS Branch NEEDED albuterol 2020-09 Yes [id number] 2{puff} Inhale 2 [facility] (PROAIR 1-09 Puffs ity of HFA) 90 00:00: every 6 [place] mcg/actuati 00 (six) Medical on inhaler hours as Branc h needed for Wheezing or Shortness of Breath. cyanocobala 2020-09 Yes [id number] 1000ug 1 mL by [facility] min 1,000 1-09 Intramuscu ity of mcg/mL 00:00: lar route [place] injection 00 every 2 Medical (two) Branch weeks. levalbutero 2020-09 Yes [id number] .63mg Inhale [facility] l 0.63 mg/3 1-09 0.63 mg 3 ity of mL 00:00: (three) [place] nebulizer 00 times Medical solution daily as Branch needed for Wheezing or Shortness of Breath. cyclobenzap 2020-09 Yes [id number] TAKE 1 [facility] rine 5 mg 1-09 TABLET BY ity o f tablet 00:00: MOUTH [place] 00 EVERY 8 Medical HOURS Branch NEEDED albuterol 2020-09 Yes [id number] 2{puff} Inhale 2 [facility] (PROAIR 1-09 Puffs ity of HFA) 90 00:00: every 6 [place] mcg/actuati 00 (six) Medical on inhaler hours as Branc h needed for Wheezing or Shortness of Breath. cyanocobala 2020-09 Yes [id number] 1000ug 1 mL by [facility] min 1,000 1-09 Intramuscu ity of mcg/mL 00:00: lar route [place] injection 00 every 2 Medical (two) Branch weeks. levalbutero 2020-09 Yes [id number] .63mg Inhale [facility] l 0.63 mg/3 1-09 0.63 mg 3 ity of mL 00:00: (three) [place] nebulizer 00 times Medical solution daily as Branch needed for Wheezing or Shortness of Breath. cyclobenzap 2020-09 Yes [id number] TAKE 1 [facility] rine 5 mg 1-09 TABLET BY ity o f tablet 00:00: MOUTH [place] 00 EVERY 8 Medical HOURS Branch NEEDED albuterol 2020-09 Yes [id number] 2{puff} Inhale 2 [facility] (PROAIR 1-09 Puffs ity of HFA) 90 00:00: every 6 [place] mcg/actuati 00 (six) Medical on inhaler hours as Branc h needed for Wheezing or Shortness of Breath. cyanocobala 2020-09 Yes [id number] 1000ug 1 mL by [facility] min 1,000 1-09 Intramuscu ity of mcg/mL 00:00: lar route [place] injection 00 every 2 Medical (two) Branch weeks. levalbutero 2020-09 Yes [id number] .63mg Inhale [facility] l 0.63 mg/3 1-09 0.63 mg 3 ity of mL 00:00: (three) [place] nebulizer 00 times Medical solution daily as Branch needed for Wheezing or Shortness of Breath. cyclobenzap 2020-09 Yes [id number] TAKE 1 [facility] rine 5 mg 1-09 TABLET BY ity o f tablet 00:00: MOUTH [place] 00 EVERY 8 Medical HOURS Branch NEEDED albuterol 2020-09 Yes [id number] 2{puff} Inhale 2 [facility] (PROAIR 1-09 Puffs ity of HFA) 90 00:00: every 6 [place] mcg/actuati 00 (six) Medical on inhaler hours as Branc h needed for Wheezing or Shortness of Breath. cyanocobala 2020-09 Yes [id number] 1000ug 1 mL by [facility] min 1,000 1-09 Intramuscu ity of mcg/mL 00:00: lar route [place] injection 00 every 2 Medical (two) Branch weeks. levalbutero 2020-09 Yes [id number] .63mg Inhale [facility] l 0.63 mg/3 1-09 0.63 mg 3 ity of mL 00:00: (three) [place] nebulizer 00 times Medical solution daily as Branch needed for Wheezing or Shortness of Breath. cyclobenzap 2020-09 Yes [id number] TAKE 1 [facility] rine 5 mg 1-09 TABLET BY ity o f tablet 00:00: MOUTH [place] 00 EVERY 8 Medical HOURS Branch NEEDED albuterol 2020-09 Yes [id number] 2{puff} Inhale 2 [facility] (PROAIR 1-09 Puffs ity of HFA) 90 00:00: every 6 [place] mcg/actuati 00 (six) Medical on inhaler hours as Branc h needed for Wheezing or Shortness of Breath. cyanocobala 2020-09 Yes [id number] 1000ug 1 mL by [facility] min 1,000 1-09 Intramuscu ity of mcg/mL 00:00: lar route [place] injection 00 every 2 Medical (two) Branch weeks. levalbutero 2020-09 Yes [id number] .63mg Inhale [facility] l 0.63 mg/3 1-09 0.63 mg 3 ity of mL 00:00: (three) [place] nebulizer 00 times Medical solution daily as Branch needed for Wheezing or Shortness of Breath. cyclobenzap 2020-09 Yes [id number] TAKE 1 [facility] rine 5 mg 1-09 TABLET BY ity o f tablet 00:00: MOUTH [place] 00 EVERY 8 Medical HOURS Branch NEEDED albuterol 2020-09 Yes [id number] 2{puff} Inhale 2 [facility] (PROAIR 1-09 Puffs ity of HFA) 90 00:00: every 6 [place] mcg/actuati 00 (six) Medical on inhaler hours as Branc h needed for Wheezing or Shortness of Breath. cyanocobala 2020-09 Yes [id number] 1000ug 1 mL by [facility] min 1,000 1-09 Intramuscu ity of mcg/mL 00:00: lar route [place] injection 00 every 2 Medical (two) Branch weeks. levalbutero 2020-09 Yes [id number] .63mg Inhale [facility] l 0.63 mg/3 1-09 0.63 mg 3 ity of mL 00:00: (three) [place] nebulizer 00 times Medical solution daily as Branch needed for Wheezing or Shortness of Breath. cyclobenzap 2020-09 Yes [id number] TAKE 1 [facility] rine 5 mg 1-09 TABLET BY ity o f tablet 00:00: MOUTH [place] 00 EVERY 8 Medical HOURS Branch NEEDED albuterol 2020-09 Yes [id number] 2{puff} Inhale 2 [facility] (PROAIR 1-09 Puffs ity of HFA) 90 00:00: every 6 [place] mcg/actuati 00 (six) Medical on inhaler hours as Branc h needed for Wheezing or Shortness of Breath. cyanocobala 2020-09 Yes [id number] 1000ug 1 mL by [facility] min 1,000 1-09 Intramuscu ity of mcg/mL 00:00: lar route [place] injection 00 every 2 Medical (two) Branch weeks. levalbutero 2020-09 Yes [id number] .63mg Inhale [facility] l 0.63 mg/3 1-09 0.63 mg 3 ity of mL 00:00: (three) [place] nebulizer 00 times Medical solution daily as Branch needed for Wheezing or Shortness of Breath. cyclobenzap 2020-09 Yes [id number] TAKE 1 [facility] rine 5 mg 1-09 TABLET BY ity o f tablet 00:00: MOUTH [place] 00 EVERY 8 Medical HOURS Branch NEEDED albuterol 2020-09 Yes [id number] 2{puff} Inhale 2 [facility] (PROAIR 1-09 Puffs ity of HFA) 90 00:00: every 6 [place] mcg/actuati 00 (six) Medical on inhaler hours as Branc h needed for Wheezing or Shortness of Breath. cyanocobala 2020-09 Yes [id number] 1000ug 1 mL by [facility] min 1,000 1-09 Intramuscu ity of mcg/mL 00:00: lar route [place] injection 00 every 2 Medical (two) Branch weeks. levalbutero 2020-09 Yes [id number] .63mg Inhale [facility] l 0.63 mg/3 1-09 0.63 mg 3 ity of mL 00:00: (three) [place] nebulizer 00 times Medical solution daily as Branch needed for Wheezing or Shortness of Breath. cyclobenzap 2020-09 Yes [id number] TAKE 1 [facility] rine 5 mg 1-09 TABLET BY ity o f tablet 00:00: MOUTH [place] 00 EVERY 8 Medical HOURS Branch NEEDED albuterol 2020-09 Yes [id number] 2{puff} Inhale 2 [facility] (PROAIR 1-09 Puffs ity of HFA) 90 00:00: every 6 [place] mcg/actuati 00 (six) Medical on inhaler hours as Branc h needed for Wheezing or Shortness of Breath. levalbutero 2020-09 Yes [id number] .63mg Inhale [facility] l 0.63 mg/3 1-09 0.63 mg 3 ity of mL 00:00: (three) [place] nebulizer 00 times Medical solution daily as Branch needed for Wheezing or Shortness of Breath. cyclobenzap 2020-09 Yes [id number] TAKE 1 [facility] rine 5 mg 1-09 TABLET BY ity o f tablet 00:00: MOUTH [place] 00 EVERY 8 Medical HOURS Branch NEEDED albuterol 2020-09 Yes [id number] 2{puff} Inhale 2 [facility] (PROAIR 1-09 Puffs ity of HFA) 90 00:00: every 6 [place] mcg/actuati 00 (six) Medical on inhaler hours as Branc h needed for Wheezing or Shortness of Breath. levalbutero 2020-09 Yes [id number] .63mg Inhale [facility] l 0.63 mg/3 1-09 0.63 mg 3 ity of mL 00:00: (three) [place] nebulizer 00 times Medical solution daily as Branch needed for Wheezing or Shortness of Breath. cyclobenzap 2020-09 Yes [id number] TAKE 1 [facility] rine 5 mg 1-09 TABLET BY ity o f tablet 00:00: MOUTH [place] 00 EVERY 8 Medical HOURS Branch NEEDED albuterol 2020-09 Yes [id number] 2{puff} Inhale 2 [facility] (PROAIR 1-09 Puffs ity of HFA) 90 00:00: every 6 [place] mcg/actuati 00 (six) Medical on inhaler hours as Branc h needed for Wheezing or Shortness of Breath. levalbutero 2020-09 Yes [id number] .63mg Inhale [facility] l 0.63 mg/3 1-09 0.63 mg 3 ity of mL 00:00: (three) [place] nebulizer 00 times Medical solution daily as Branch needed for Wheezing or Shortness of Breath. cyclobenzap 2020-09 Yes [id number] TAKE 1 [facility] rine 5 mg 1-09 TABLET BY ity o f tablet 00:00: MOUTH [place] 00 EVERY 8 Medical HOURS Branch NEEDED albuterol 2020-09 Yes [id number] 2{puff} Inhale 2 [facility] (PROAIR 1-09 Puffs ity of HFA) 90 00:00: every 6 [place] mcg/actuati 00 (six) Medical on inhaler hours as Branc h needed for Wheezing or Shortness of Breath. levalbutero 2020-09 Yes [id number] .63mg Inhale [facility] l 0.63 mg/3 1-09 0.63 mg 3 ity of mL 00:00: (three) [place] nebulizer 00 times Medical solution daily as Branch needed for Wheezing or Shortness of Breath. cyclobenzap 2020-09 Yes [id number] TAKE 1 [facility] rine 5 mg 1-09 TABLET BY ity o f tablet 00:00: MOUTH [place] 00 EVERY 8 Medical HOURS Branch NEEDED albuterol 2020-09 Yes [id number] 2{puff} Inhale 2 [facility] (PROAIR 1-09 Puffs ity of HFA) 90 00:00: every 6 [place] mcg/actuati 00 (six) Medical on inhaler hours as Branc h needed for Wheezing or Shortness of Breath. levalbutero 2020-09 Yes [id number] .63mg [facility]hale [facility] 0.63 mg/3 1-09 0.63 mg 3 ity of mL 00:00: (three) [place] nebulizer 00 times Medical solution daily as Branch needed for Wheezing or Shortness of Breath. cyclobenzap 2020-09 Yes [id number] TAKE 1 [facility] rine 5 mg 1-09 TABLET BY ity o f tablet 00:00: MOUTH [place] 00 EVERY 8 Medical HOURS Branch NEEDED albuterol 2020-09 Yes [id number] 2{puff} Inhale 2 [facility] (PROAIR 1-09 Puffs ity of HFA) 90 00:00: every 6 [place] mcg/actuati 00 (six) Medical on inhaler hours as Branc h needed for Wheezing or Shortness of Breath. levalbutero 2020-09 Yes [id number] .63mg Inhale [facility] 0.63 mg/3 1-09 0.63 mg 3 ity of mL 00:00: (three) [place] nebulizer 00 times Medical solution daily as Branch needed for Wheezing or Shortness of Breath. cyclobenzap 2020-09 Yes [id number] TAKE 1 [facility] rine 5 mg 1-09 TABLET BY it[facility] o f tablet 00:00: MOUTH [place] 00 EVERY 8 Medical HOURS Branch NEEDED albuterol 2020-09 Yes [id number] 2{puff} Inhale 2 [facility] (PROAIR 1-09 Puffs ity of HFA) 90 00:00: every 6 [place] mcg/actuati 00 (six) Medical on inhaler hours as Branc h needed for Wheezing or Shortness of Breath. levalbutero 2020-09 Yes [id number] .63mg Inhale [facility] 0.63 mg/3 1-09 0.63 mg 3 ity of mL 00:00: (three) [place] nebulizer 00 times Medical solution daily as Branch needed for Wheezing or Shortness of Breath. cyclobenzap 2020-09 Yes [id number] TAKE 1 [facility] rine 5 mg 1-09 TABLET BY ity o f tablet 00:00: MOUTH [place] 00 EVERY 8 Medical HOURS Branch NEEDED albuterol 2020-09 Yes [id number] 2{puff} Inhale 2 [facility] (PROAIR 1-09 Puffs ity of HFA) 90 00:00: every 6 [place] mcg/actuati 00 (six) Medical on inhaler hours as Branc h needed for Wheezing or Shortness of Breath. levalbutero 2020-09 Yes [id number] .63mg Inhale [facility] 0.63 mg/3 1-09 0.63 mg 3 ity of mL 00:00: (three) [place] nebulizer 00 times Medical solution daily as Branch needed for Wheezing or Shortness of Breath. cyclobenzap 2020-09 Yes [id number] TAKE 1 [facility] r[facility] 5 mg 1-09 TABLET BY ity o f tablet 00:00: MOUTH [place] 00 EVERY 8 Medical HOURS Branch NEEDED albuterol 2020-09 Yes [id number] 2{puff} Inhale 2 [facility] (PROAIR 1-09 Puffs ity of HFA) 90 00:00: every 6 [place] mcg/actuati 00 (six) Medical on inhaler hours as Branc h needed for Wheezing or Shortness of Breath. levalbutero 2020-09 Yes [id number] .63mg Inhale [facility] 0.63 mg/3 1-09 0.63 mg 3 ity of mL 00:00: (three) [place] nebulizer 00 times Medical solution daily as Branch needed for Wheezing or Shortness of Breath. cyclobenzap 2020-09 Yes [id number] TAKE 1 [facility] r[facility] 5 mg 1-09 TABLET BY [facility] o f tablet 00:00: MOUTH [place] 00 EVERY 8 Medical HOURS Branch NEEDED albuterol 2020-09 Yes [id number] 2{puff} Inhale 2 [facility] (PROAIR 1-09 Puffs ity of HFA) 90 00:00: every 6 [place] mcg/actuati 00 (six) Medical on inhaler hours as Branc h needed for Wheezing or Shortness of Breath. levalbutero 2020-09 Yes [id number] .63mg Inhale [facility] 0.63 mg/3 1-09 0.63 mg 3 ity of mL 00:00: (three) [place] nebulizer 00 times Medical solution daily as Branch needed for Wheezing or Shortness of Breath. cyclobenzap 2020-09 Yes [id number] TAKE 1 [facility] rine 5 mg 1-09 TABLET BY ity o f tablet 00:00: MOUTH [place] 00 EVERY 8 Medical HOURS Branch NEEDED albuterol 2020-09 Yes [id number] 2{puff} Inhale 2 [facility] (PROAIR 1-09 Puffs ity of HFA) 90 00:00: every 6 [place] mcg/actuati 00 (six) Medical on inhaler hours as Branc h needed for Wheezing or Shortness of Breath. levalbutero 2020-09 Yes [id number] .63mg Inhale [facility] 0.63 mg/3 1-09 0.63 mg 3 ity of mL 00:00: (three) [place] nebulizer 00 times Medical solution daily as Branch needed for Wheezing or Shortness of Breath. cyclobenzap 2020-09 Yes [id number] TAKE 1 [facility] r[facility] 5 mg 1-09 TABLET BY ity o f tablet 00:00: MOUTH [place] 00 EVERY 8 Medical HOURS Branch NEEDED albuterol 2020-09 Yes [id number] 2{puff} Inhale 2 [facility] (PROAIR 1-09 Puffs ity of HFA) 90 00:00: every 6 [place] mcg/actuati 00 (six) Medical on inhaler hours as Branc h needed for Wheezing or Shortness of Breath. levalbutero 2020-09 Yes [id number] .63mg Inhale [facility] 0.63 mg/3 1-09 0.63 mg 3 ity of mL 00:00: (three) [place] nebulizer 00 times Medical solution daily as Branch needed for Wheezing or Shortness of Breath. cyclobenzap 2020-09 Yes [id number] TAKE 1 [facility] rine 5 mg 1-09 TABLET BY ity o f tablet 00:00: MOUTH [place] 00 EVERY 8 Medical HOURS Branch NEEDED albuterol 2020-09 Yes [id number] 2{puff} Inhale 2 [facility] (PROAIR 1-09 Puffs ity of HFA) 90 00:00: every 6 [place] mcg/actuati 00 (six) Medical on inhaler hours as Branc h needed for Wheezing or Shortness of Breath. levalbutero 2020-09 Yes [id number] .63mg Inhale [facility] 0.63 mg/3 1-09 0.63 mg 3 ity of mL 00:00: (three) [place] nebulizer 00 times Medical solution daily as Branch needed for Wheezing or Shortness of Breath. cyclobenzap 2020-09 Yes [id number] TAKE 1 [facility] r[facility] 5 mg 1-09 TABLET BY ity o f tablet 00:00: MOUTH [place] 00 EVERY 8 Medical HOURS Branch NEEDED albuterol 2020-09 Yes [id number] 2{puff} Inhale 2 [facility] (PROAIR 1-09 Puffs ity of HFA) 90 00:00: every 6 [place] mcg/actuati 00 (six) Medical on inhaler hours as Branc h needed for Wheezing or Shortness of Breath. levalbutero 2020-09 Yes [id number] .63mg Inhale [facility] 0.63 mg/3 1-09 0.63 mg 3 ity of mL 00:00: (three) [place] nebulizer 00 times Medical solution daily as Branch needed for Wheezing or Shortness of Breath. cyclobenzap 2020-09 Yes [id number] TAKE 1 [facility] r[facility] 5 mg 1-09 TABLET BY ity o f tablet 00:00: MOUTH [place] 00 EVERY 8 Medical HOURS Branch NEEDED albuterol 2020-09 Yes [id number] 2{puff} Inhale 2 [facility] (PROAIR 1-09 Puffs ity of HFA) 90 00:00: every 6 [place] mcg/actuati 00 (six) Medical on inhaler hours as Branc h needed for Wheezing or Shortness of Breath. levalbutero 2020-09 Yes [id number] .63mg Inhale [facility] 0.63 mg/3 1-09 0.63 mg 3 ity of mL 00:00: (three) [place] nebulizer 00 times Medical solution daily as Branch needed for Wheezing or Shortness of Breath. cyclobenzap 2020-09 Yes [id number] TAKE 1 [facility] r[facility] 5 mg 1-09 TABLET BY ity o f tablet 00:00: MOUTH [place] 00 EVERY 8 Medical HOURS Branch NEEDED albuterol 2020-09 Yes [id number] 2{puff} Inhale 2 [facility] (PROAIR 1-09 Puffs ity of HFA) 90 00:00: every 6 [place] mcg/actuati 00 (six) Medical on inhaler hours as Branc h needed for Wheezing or Shortness of Breath. levalbutero 2020-09 Yes [id number] .63mg Inhale [facility] 0.63 mg/3 1-09 0.63 mg 3 ity of mL 00:00: (three) [place] nebulizer 00 times Medical solution daily as Branch needed for Wheezing or Shortness of Breath. cyclobenzap 2020-09 Yes [id number] TAKE 1 [facility] r[facility] 5 mg 1-09 TABLET BY ity o f tablet 00:00: MOUTH [place] 00 EVERY 8 Medical HOURS Branch NEEDED albuterol 2020-09 Yes [id number] 2{puff} Inhale 2 [facility] (PROAIR 1-09 Puffs ity of HFA) 90 00:00: every 6 [place] mcg/actuati 00 (six) Medical on inhaler hours as Branc h needed for Wheezing or Shortness of Breath. levalbutero 2020-09 Yes [id number] .63mg Inhale [facility] 0.63 mg/3 1-09 0.63 mg 3 ity of mL 00:00: (three) [place] nebulizer 00 times Medical solution daily as Branch needed for Wheezing or Shortness of Breath. cyclobenzap 2020-09 Yes [id number] TAKE 1 [facility] r[facility] 5 mg 1-09 TABLET BY ity o f tablet 00:00: MOUTH [place] 00 EVERY 8 Medical HOURS Branch NEEDED albuterol 2020-09 Yes [id number] 2{puff} Inhale 2 [facility] (PROAIR 1-09 Puffs ity of HFA) 90 00:00: every 6 [place] mcg/actuati 00 (six) Medical on inhaler hours as Branc h needed for Wheezing or Shortness of Breath. levalbutero 2020-09 Yes [id number] .63mg Inhale [facility] 0.63 mg/3 1-09 0.63 mg 3 ity of mL 00:00: (three) [place] nebulizer 00 times Medical solution daily as Branch needed for Wheezing or Shortness of Breath. cyclobenzap 2020-09 Yes [id number] TAKE 1 [facility] rine 5 mg 1-09 TABLET BY ity o f tablet 00:00: MOUTH [place] 00 EVERY 8 Medical HOURS Branch NEEDED albuterol 2020-09 Yes [id number] 2{puff} Inhale 2 [facility] (PROAIR 1-09 Puffs ity of HFA) 90 00:00: every 6 [place] mcg/actuati 00 (six) Medical on inhaler hours as Branc h needed for Wheezing or Shortness of Breath. levalbutero 2020-09 Yes [id number] .63mg Inhale [facility] 0.63 mg/3 1-09 0.63 mg 3 ity of mL 00:00: (three) [place] nebulizer 00 times Medical solution daily as Branch needed for Wheezing or Shortness of Breath. albuterol 2020-09 Yes [id number] 2{puff} Inhale 2 [facility] (PROAIR 1-09 Puffs ity of HFA) 90 00:00: every 6 [place] mcg/actuati 00 (six) Medical on inhaler hours as Branc h needed for Wheezing or Shortness of Breath. levalbutero 2020-09 Yes [id number] .63mg Inhale [facility] 0.63 mg/3 1-09 0.63 mg 3 ity of mL 00:00: (three) [place] nebulizer 00 times Medical solution daily as Branch needed for Wheezing or Shortness of Breath. albuterol 2020-09 Yes [id number] 2{puff} Inhale 2 [facility] (PROAIR 1-09 Puffs ity of HFA) 90 00:00: every 6 [place] mcg/actuati 00 (six) Medical on inhaler hours as Branc h needed for Wheezing or Shortness of Breath. levalbutero 2020-09 Yes [id number] .63mg Inhale [facility] 0.63 mg/3 1-09 0.63 mg 3 ity of mL 00:00: (three) [place] nebulizer 00 times Medical solution daily as Branch needed for Wheezing or Shortness of Breath. albuterol 2020-09 Yes [id number] 2{puff} Inhale 2 [facility] (PROAIR 1-09 Puffs ity of HFA) 90 00:00: every 6 [place] mcg/actuati 00 (six) Medical on inhaler hours as Branc h needed for Wheezing or Shortness of Breath. levalbutero 2020-09 Yes [id number] .63mg Inhale [facility] 0.63 mg/3 1-09 0.63 mg 3 ity of mL 00:00: (three) [place] nebulizer 00 times Medical solution daily as Branch needed for Wheezing or Shortness of Breath. albuterol 2020-09 Yes [id number] 2{puff} Inhale 2 [facility] (PROAIR 1-09 Puffs ity of HFA) 90 00:00: every 6 [place] mcg/actuati 00 (six) Medical on inhaler hours as Branc h needed for Wheezing or Shortness of Breath. levalbutero 2020-09 Yes [id number] .63mg Inhale [facility] 0.63 mg/3 1-09 0.63 mg 3 ity of mL 00:00: (three) [place] nebulizer 00 times Medical solution daily as Branch needed for Wheezing or Shortness of Breath. albuterol 2020-09 Yes [id number] 2{puff} Inhale 2 [facility] (PROAIR 1-09 Puffs ity of HFA) 90 00:00: every 6 [place] mcg/actuati 00 (six) Medical on inhaler hours as Branc h needed for Wheezing or Shortness of Breath. levalbutero 2020-09 Yes [id number] .63mg Inhale [facility] 0.63 mg/3 1-09 0.63 mg 3 ity of mL 00:00: (three) [place] nebulizer 00 times Medical solution daily as Branch needed for Wheezing or Shortness of Breath. albuterol 2020-09 Yes [id number] 2{puff} Inhale 2 [facility] (PROAIR 1-09 Puffs ity of HFA) 90 00:00: every 6 [place] mcg/actuati 00 (six) Medical on inhaler hours as Branc h needed for Wheezing or Shortness of Breath. levalbutero 2020-09 Yes [id number] .63mg Inhale [facility] 0.63 mg/3 1-09 0.63 mg 3 ity of mL 00:00: (three) [place] nebulizer 00 times Medical solution daily as Branch needed for Wheezing or Shortness of Breath. albuterol 2020-09 Yes [id number] 2{puff} Inhale 2 [facility] (PROAIR 1-09 Puffs ity of HFA) 90 00:00: every 6 [place] mcg/actuati 00 (six) Medical on inhaler hours as Branc h needed for Wheezing or Shortness of Breath. levalbutero 2020-09 Yes [id number] .63mg Inhale [facility] 0.63 mg/3 1-09 0.63 mg 3 ity of mL 00:00: (three) [place] nebulizer 00 times Medical solution daily as Branch needed for Wheezing or Shortness of Breath. albuterol 2020-09 Yes [id number] 2{puff} Inhale 2 [facility] (PROAIR 1-09 Puffs ity of HFA) 90 00:00: every 6 [place] mcg/actuati 00 (six) Medical on inhaler hours as Branc h needed for Wheezing or Shortness of Breath. levalbutero 2020-09 Yes [id number] .63mg Inhale [facility] 0.63 mg/3 1-09 0.63 mg 3 ity of mL 00:00: (three) [place] nebulizer 00 times Medical solution daily as Branch needed for Wheezing or Shortness of Breath. albuterol 2020-09 Yes [id number] 2{puff} Inhale 2 [facility] (PROAIR 1-09 Puffs ity of HFA) 90 00:00: every 6 [place] mcg/actuati 00 (six) Medical on inhaler hours as Branc h needed for Wheezing or Shortness of Breath. levalbutero 2020-09 Yes [id number] .63mg Inhale [facility] 0.63 mg/3 1-09 0.63 mg 3 ity of mL 00:00: (three) [place] nebulizer 00 times Medical solution daily as Branch needed for Wheezing or Shortness of Breath. albuterol 2020-09 Yes [id number] 2{puff} Inhale 2 [facility] (PROAIR 1-09 Puffs ity of HFA) 90 00:00: every 6 [place] mcg/actuati 00 (six) Medical on inhaler hours as Branc h needed for Wheezing or Shortness of Breath. levalbutero 2020-09 Yes [id number] .63mg Inhale [facility] 0.63 mg/3 1-09 0.63 mg 3 ity of mL 00:00: (three) [place] nebulizer 00 times Medical solution daily as Branch needed for Wheezing or Shortness of Breath. albuterol 2020-09 Yes [id number] 2{puff} Inhale 2 [facility] (PROAIR 1-09 Puffs ity of HFA) 90 00:00: every 6 [place] mcg/actuati 00 (six) Medical on inhaler hours as Branc h needed for Wheezing or Shortness of Breath. levalbutero 2020-09 Yes [id number] .63mg Inhale [facility] 0.63 mg/3 1-09 0.63 mg 3 ity of mL 00:00: (three) [place] nebulizer 00 times Medical solution daily as Branch needed for Wheezing or Shortness of Breath. albuterol 2020-09 Yes [id number] 2{puff} Inhale 2 [facility] (PROAIR 1-09 Puffs ity of HFA) 90 00:00: every 6 [place] mcg/actuati 00 (six) Medical on inhaler hours as Branc h needed for Wheezing or Shortness of Breath. levalbutero 2020-09 Yes [id number] .63mg Inhale [facility] 0.63 mg/3 1-09 0.63 mg 3 ity of mL 00:00: (three) [place] nebulizer 00 times Medical solution daily as Branch needed for Wheezing or Shortness of Breath. albuterol 2020-09 Yes [id number] 2{puff} Inhale 2 [facility] (PROAIR 1-09 Puffs ity of HFA) 90 00:00: every 6 [place] mcg/actuati 00 (six) Medical on inhaler hours as Branc h needed for Wheezing or Shortness of Breath. levalbutero 2020-09 Yes [id number] .63mg Inhale [facility] 0.63 mg/3 1-09 0.63 mg 3 ity of mL 00:00: (three) [place] nebulizer 00 times Medical solution daily as Branch needed for Wheezing or Shortness of Breath. albuterol 2020-09 Yes [id number] 2{puff} Inhale 2 [facility] (PROAIR 1-09 Puffs ity of HFA) 90 00:00: every 6 [place] mcg/actuati 00 (six) Medical on inhaler hours as Branc h needed for Wheezing or Shortness of Breath. levalbutero 2020-09 Yes [id number] .63mg Inhale [facility] 0.63 mg/3 1-09 0.63 mg 3 ity of mL 00:00: (three) [place] nebulizer 00 times Medical solution daily as Branch needed for Wheezing or Shortness of Breath. albuterol 2020-09 Yes [id number] 2{puff} Inhale 2 [facility] (PROAIR 1-09 Puffs ity of HFA) 90 00:00: every 6 [place] mcg/actuati 00 (six) Medical on inhaler hours as Branc h needed for Wheezing or Shortness of Breath. levalbutero 2020-09 Yes [id number] .63mg Inhale [facility] 0.63 mg/3 1-09 0.63 mg 3 ity of mL 00:00: (three) [place] nebulizer 00 times Medical solution daily as Branch needed for Wheezing or Shortness of Breath. albuterol 2020-09 Yes [id number] 2{puff} Inhale 2 [facility] (PROAIR 1-09 Puffs ity of HFA) 90 00:00: every 6 [place] mcg/actuati 00 (six) Medical on inhaler hours as Branc h needed for Wheezing or Shortness of Breath. levalbutero 2020-09 Yes [id number] .63mg Inhale [facility] 0.63 mg/3 1-09 0.63 mg 3 ity of mL 00:00: (three) [place] nebulizer 00 times Medical solution daily as Branch needed for Wheezing or Shortness of Breath. albuterol 2020-09 Yes [id number] 2{puff} Inhale 2 [facility] (PROAIR 1-09 Puffs ity of HFA) 90 00:00: every 6 [place] mcg/actuati 00 (six) Medical on inhaler hours as Branc h needed for Wheezing or Shortness of Breath. levalbutero 2020-09 Yes [id number] .63mg Inhale [facility] 0.63 mg/3 1-09 0.63 mg 3 ity of mL 00:00: (three) [place] nebulizer 00 times Medical solution daily as Branch needed for Wheezing or Shortness of Breath. albuterol 2020-09 Yes [id number] 2{puff} Inhale 2 [facility] (PROAIR 1-09 Puffs ity of HFA) 90 00:00: every 6 [place] mcg/actuati 00 (six) Medical on inhaler hours as Branc h needed for Wheezing or Shortness of Breath. levalbutero 2020-09 Yes [id number] .63mg Inhale [facility] 0.63 mg/3 1-09 0.63 mg 3 ity of mL 00:00: (three) [place] nebulizer 00 times Medical solution daily as Branch needed for Wheezing or Shortness of Breath. albuterol 2020-09 Yes [id number] 2{puff} Inhale 2 [facility] (PROAIR 1-09 Puffs ity of HFA) 90 00:00: every 6 [place] mcg/actuati 00 (six) Medical on inhaler hours as Branc h needed for Wheezing or Shortness of Breath. levalbutero 2020-09 Yes [id number] .63mg Inhale [facility] 0.63 mg/3 1-09 0.63 mg 3 ity of mL 00:00: (three) [place] nebulizer 00 times Medical solution daily as Branch needed for Wheezing or Shortness of Breath. albuterol 2020-09 Yes [id number] 2{puff} Inhale 2 [facility] (PROAIR 1-09 Puffs ity of HFA) 90 00:00: every 6 [place] mcg/actuati 00 (six) Medical on inhaler hours as Branc h needed for Wheezing or Shortness of Breath. levalbutero 2020-09 Yes [id number] .63mg Inhale [facility] 0.63 mg/3 1-09 0.63 mg 3 ity of mL 00:00: (three) [place] nebulizer 00 times Medical solution daily as Branch needed for Wheezing or Shortness of Breath. albuterol 2020-09 Yes [id number] 2{puff} Inhale 2 [facility] (PROAIR 1-09 Puffs ity of HFA) 90 00:00: every 6 [place] mcg/actuati 00 (six) Medical on inhaler hours as Branc h needed for Wheezing or Shortness of Breath. levalbutero 2020-09 Yes [id number] .63mg Inhale [facility] 0.63 mg/3 1-09 0.63 mg 3 ity of mL 00:00: (three) [place] nebulizer 00 times Medical solution daily as Branch needed for Wheezing or Shortness of Breath. albuterol 2020-09 Yes [id number] 2{puff} Inhale 2 [facility] (PROAIR 1-09 Puffs ity of HFA) 90 00:00: every 6 [place] mcg/actuati 00 (six) Medical on inhaler hours as Branc h needed for Wheezing or Shortness of Breath. levalbutero 2020-09 Yes [id number] .63mg Inhale [facility] 0.63 mg/3 1-09 0.63 mg 3 ity of mL 00:00: (three) [place] nebulizer 00 times Medical solution daily as Branch needed for Wheezing or Shortness of Breath. albuterol 2020-09 Yes [id number] 2{puff} Inhale 2 [facility] (PROAIR 1-09 Puffs ity of HFA) 90 00:00: every 6 [place] mcg/actuati 00 (six) Medical on inhaler hours as Branc h needed for Wheezing or Shortness of Breath. levalbutero 2020-09 Yes [id number] .63mg Inhale [facility] 0.63 mg/3 1-09 0.63 mg 3 ity of mL 00:00: (three) [place] nebulizer 00 times Medical solution daily as Branch needed for Wheezing or Shortness of Breath. albuterol 2020-09 Yes [id number] 2{puff} Inhale 2 [facility] (PROAIR 1-09 Puffs ity of HFA) 90 00:00: every 6 [place] mcg/actuati 00 (six) Medical on inhaler hours as Branc h needed for Wheezing or Shortness of Breath. levalbutero 2020-09 Yes [id number] .63mg Inhale [facility] 0.63 mg/3 1-09 0.63 mg 3 ity of mL 00:00: (three) [place] nebulizer 00 times Medical solution daily as Branch needed for Wheezing or Shortness of Breath. albuterol 2020-09 Yes [id number] 2{puff} Inhale 2 [facility] (PROAIR 1-09 Puffs ity of HFA) 90 00:00: every 6 [place] mcg/actuati 00 (six) Medical on inhaler hours as Branc h needed for Wheezing or Shortness of Breath. levalbutero 2020-09 Yes [id number] .63mg Inhale [facility] 0.63 mg/3 1-09 0.63 mg 3 ity of mL 00:00: (three) [place] nebulizer 00 times Medical solution daily as Branch needed for Wheezing or Shortness of Breath. albuterol 2020-09 Yes [id number] 2{puff} Inhale 2 [facility] (PROAIR 1-09 Puffs ity of HFA) 90 00:00: every 6 [place] mcg/actuati 00 (six) Medical on inhaler hours as Branc h needed for Wheezing or Shortness of Breath. levalbutero 2020-09 Yes [id number] .63mg Inhale [facility] 0.63 mg/3 1-09 0.63 mg 3 ity of mL 00:00: (three) [place] nebulizer 00 times Medical solution daily as Branch needed for Wheezing or Shortness of Breath. albuterol 2020-09 Yes [id number] 2{puff} Inhale 2 [facility] (PROAIR 1-09 Puffs ity of HFA) 90 00:00: every 6 [place] mcg/actuati 00 (six) Medical on inhaler hours as Branc h needed for Wheezing or Shortness of Breath. levalbutero 2020-09 Yes [id number] .63mg Inhale [facility] 0.63 mg/3 1-09 0.63 mg 3 ity of mL 00:00: (three) [place] nebulizer 00 times Medical solution daily as Branch needed for Wheezing or Shortness of Breath. albuterol 2020-09 Yes [id number] 2{puff} Inhale 2 [facility] (PROAIR 1-09 Puffs ity of HFA) 90 00:00: every 6 [place] mcg/actuati 00 (six) Medical on inhaler hours as Branc h needed for Wheezing or Shortness of Breath. levalbutero 2020-09 Yes [id number] .63mg Inhale [facility] 0.63 mg/3 1-09 0.63 mg 3 ity of mL 00:00: (three) [place] nebulizer 00 times Medical solution daily as Branch needed for Wheezing or Shortness of Breath. albuterol 2020-09 Yes [id number] 2{puff} Inhale 2 [facility] (PROAIR 1-09 Puffs ity of HFA) 90 00:00: every 6 [place] mcg/actuati 00 (six) Medical on inhaler hours as Branc h needed for Wheezing or Shortness of Breath. levalbutero 2020-09 Yes [id number] .63mg Inhale [facility] 0.63 mg/3 1-09 0.63 mg 3 ity of mL 00:00: (three) [place] nebulizer 00 times Medical solution daily as Branch needed for Wheezing or Shortness of Breath. albuterol 2020-09 Yes [id number] 2{puff} Inhale 2 [facility] (PROAIR 1-09 Puffs ity of HFA) 90 00:00: every 6 [place] mcg/actuati 00 (six) Medical on inhaler hours as Branc h needed for Wheezing or Shortness of Breath. levalbutero 2020-09 Yes [id number] .63mg Inhale [facility] 0.63 mg/3 1-09 0.63 mg 3 ity of mL 00:00: (three) [place] nebulizer 00 times Medical solution daily as Branch needed for Wheezing or Shortness of Breath. albuterol 2020-09 Yes [id number] 2{puff} Inhale 2 [facility] (PROAIR 1-09 Puffs ity of HFA) 90 00:00: every 6 [place] mcg/actuati 00 (six) Medical on inhaler hours as Branc h needed for Wheezing or Shortness of Breath. levalbutero 2020-09 Yes [id number] .63mg Inhale [facility] 0.63 mg/3 1-09 0.63 mg 3 ity of mL 00:00: (three) [place] nebulizer 00 times Medical solution daily as Branch needed for Wheezing or Shortness of Breath. albuterol 2020-09 Yes [id number] 2{puff} Inhale 2 [facility] (PROAIR 1-09 Puffs ity of HFA) 90 00:00: every 6 [place] mcg/actuati 00 (six) Medical on inhaler hours as Branc h needed for Wheezing or Shortness of Breath. levalbutero 2020-09 Yes [id number] .63mg Inhale [facility] 0.63 mg/3 1-09 0.63 mg 3 ity of mL 00:00: (three) [place] nebulizer 00 times Medical solution daily as Branch needed for Wheezing or Shortness of Breath. albuterol 2020-09 Yes [id number] 2{puff} Inhale 2 [facility] (PROAIR 1-09 Puffs ity of HFA) 90 00:00: every 6 [place] mcg/actuati 00 (six) Medical on inhaler hours as Branc h needed for Wheezing or Shortness of Breath. levalbutero 2020-09 Yes [id number] .63mg Inhale [facility] 0.63 mg/3 1-09 0.63 mg 3 ity of mL 00:00: (three) [place] nebulizer 00 times Medical solution daily as Branch needed for Wheezing or Shortness of Breath. albuterol 2020-09 Yes [id number] 2{puff} Inhale 2 [facility] (PROAIR 1-09 Puffs ity of HFA) 90 00:00: every 6 [place] mcg/actuati 00 (six) Medical on inhaler hours as Branc h needed for Wheezing or Shortness of Breath. levalbutero 2020-09 Yes [id number] .63mg Inhale [facility] l 0.63 mg/3 1-09 0.63 mg 3 ity of mL 00:00: (three) [place] nebulizer 00 times Medical solution daily as Branch needed for Wheezing or Shortness of Breath. albuterol 2020-09 Yes [id number] 2{puff} Inhale 2 [facility] (PROAIR 1-09 Puffs ity of HFA) 90 00:00: every 6 [place] mcg/actuati 00 (six) Medical on inhaler hours as Branc h needed for Wheezing or Shortness of Breath. levalbutero 2020-09 Yes [id number] .63mg Inhale [facility] 0.63 mg/3 1-09 0.63 mg 3 ity of mL 00:00: (three) [place] nebulizer 00 times Medical solution daily as Branch needed for Wheezing or Shortness of Breath. albuterol 2020-09 Yes [id number] 2{puff} Inhale 2 [facility] (PROAIR 1-09 Puffs ity of HFA) 90 00:00: every 6 [place] mcg/actuati 00 (six) Medical on inhaler hours as Branc h needed for Wheezing or Shortness of Breath. levalbutero 2020-09 Yes [id number] .63mg Inhale [facility] 0.63 mg/3 1-09 0.63 mg 3 ity of mL 00:00: (three) [place] nebulizer 00 times Medical solution daily as Branch needed for Wheezing or Shortness of Breath. albuterol 2020-09 Yes [id number] 2{puff} Inhale 2 [facility] (PROAIR 1-09 Puffs ity of HFA) 90 00:00: every 6 [place] mcg/actuati 00 (six) Medical on inhaler hours as Branc h needed for Wheezing or Shortness of Breath. levalbutero 2020-09 Yes [id number] .63mg Inhale [facility] 0.63 mg/3 1-09 0.63 mg 3 ity of mL 00:00: (three) [place] nebulizer 00 times Medical solution daily as Branch needed for Wheezing or Shortness of Breath. albuterol 2020-09 Yes [id number] 2{puff} Inhale 2 [facility] (PROAIR 1-09 Puffs ity of HFA) 90 00:00: every 6 [place] mcg/actuati 00 (six) Medical on inhaler hours as Branc h needed for Wheezing or Shortness of Breath. levalbutero 2020-09 Yes [id number] .63mg Inhale [facility] l 0.63 mg/3 1-09 0.63 mg 3 ity of mL 00:00: (three) [place] nebulizer 00 times Medical solution daily as Branch needed for Wheezing or Shortness of Breath. albuterol 2020-09 Yes [id number] 2{puff} Inhale 2 [facility] (PROAIR 1-09 Puffs ity of HFA) 90 00:00: every 6 [place] mcg/actuati 00 (six) Medical on inhaler hours as Branc h needed for Wheezing or Shortness of Breath. levalbutero 2020-09 Yes [id number] .63mg Inhale [facility] l 0.63 mg/3 1-09 0.63 mg 3 ity of mL 00:00: (three) [place] nebulizer 00 times Medical solution daily as Branch needed for Wheezing or Shortness of Breath. albuterol 2020-09 Yes [id number] 2{puff} Inhale 2 [facility] (PROAIR 1-09 Puffs ity of HFA) 90 00:00: every 6 [place] mcg/actuati 00 (six) Medical on inhaler hours as Branc h needed for Wheezing or Shortness of Breath. levalbutero 2020-09 Yes [id number] .63mg Inhale [facility] l 0.63 mg/3 1-09 0.63 mg 3 ity of mL 00:00: (three) [place] nebulizer 00 times Medical solution daily as Branch needed for Wheezing or Shortness of Breath. albuterol 2020-09 Yes [id number] 2{puff} Inhale 2 [facility] (PROAIR 1-09 Puffs ity of HFA) 90 00:00: every 6 [place] mcg/actuati 00 (six) Medical on inhaler hours as Branc h needed for Wheezing or Shortness of Breath. levalbutero 2020-09 Yes [id number] .63mg Inhale [facility] l 0.63 mg/3 1-09 0.63 mg 3 ity of mL 00:00: (three) [place] nebulizer 00 times Medical solution daily as Branch needed for Wheezing or Shortness of Breath. albuterol 2020-09 Yes [id number] 2{puff} Inhale 2 [facility] (PROAIR 1-09 Puffs ity of HFA) 90 00:00: every 6 [place] mcg/actuati 00 (six) Medical on inhaler hours as Branc h needed for Wheezing or Shortness of Breath. rosuvastati 2020-09 Yes [id number] 10mg Take 1 [facility] n 10 mg 1-09 tablet by ity of tablet 00:00: mouth at [place] 00 bedtime. Medical Branch cyanocobala 2020-09 Yes [id number] 1000ug 1 mL by [facility] min 1,000 1-09 Intramuscu ity of mcg/mL 00:00: lar route [place] injection 00 every 2 Medical (two) Branch weeks. levothyroxi 2020-09 Yes [id number] 50ug Take 1 [facility] ne 50 mcg 1-09 tablet by ity o f tablet 00:00: mouth [place] 00 every Medical morning. Branch fluticasone 2020-09 Yes [id number] 2{puff} Inhale 2 [facility] propionate 1-09 Puffs ity of (FLOVENT 00:00: every 12 [place] HFA) 110 00 (twelve) Medical mcg/actuati hours. Branch on inhaler Rinse mouth after each use. levalbutero 2020-09 Yes [id number] .63mg Inhale [facility] l 0.63 mg/3 1-09 0.63 mg 3 ity of mL 00:00: (three) [place] nebulizer 00 times Medical solution daily as Branch needed for Wheezing or Shortness of Breath. losartan 50 2020-09 Yes [id number] 50mg Take 1 [facility] mg tablet 1-09 tablet by ity o f 00:00: mouth 2 [place] 00 (two) Medical times Branch daily. clotrimazol 2020-09 Yes [id number] Apply to [facility] e-betametha 1-09 area(s) 2 ity of sone cream 00:00: (two) [place] 00 times Medical daily. Branch cyclobenzap 2020-09 Yes [id number] TAKE 1 [facility] rine 5 mg 1-09 TABLET BY ity o f tablet 00:00: MOUTH [place] 00 EVERY 8 Medical HOURS Branch NEEDED econazole 2020-09 Yes [id number] Apply to [facility] nitrate 1 % -09 area(s) 2 ity of cream 00:00: (two) [place] 00 times Medical daily. Branch albuterol 2020-09 Yes [id number] 2{puff} Inhale 2 [facility] (PROAIR 1-09 Puffs ity of HFA) 90 00:00: every 6 [place] mcg/actuati 00 (six) Medical on inhaler hours as Branc h needed for Wheezing or Shortness of Breath. triamcinolo 2020-09 Yes [id number] Apply to [facility] ne 0.025 % 1-09 area(s) 3 ity of ointment 00:00: (three) [place] 00 times Medical daily. For Branch itching diltiazem 2020-09 Yes [id number] 120mg Take 1 [facility] (CARTIA XT) -09 capsule by it y of 120 mg 24 00:00: mouth 2 [place] hr capsule 00 (two) Medical times Branch daily. rosuvastati 2020-09 Yes [id number] 10mg Take 1 [facility] n 10 mg - tablet by ity of tablet 00:00: mouth at [place] 00 bedtime. Medical Branch cyanocobala 2020-09 Yes [id number] 1000ug 1 mL by [facility] min 1,000 -09 Intramuscu ity of mcg/mL 00:00: lar route [place] injection 00 every 2 Medical (two) Branch weeks. levothyroxi 2020-09 Yes [id number] 50ug Take 1 [facility] ne 50 mcg 10-04 tablet by ity o f tablet 00:00: mouth [place] 00 every Medical morning. Branch fluticasone 2020-09 Yes [id number] 2{puff} Inhale 2 [facility] propionate -09 Puffs ity of (FLOVENT 00:00: every 12 [place] HFA) 110 00 (twelve) Medical mcg/actuati hours. Branch on inhaler Rinse mouth after each use. levalbutero 2020-09 Yes [id number] .63mg Inhale [facility] l 0.63 mg/3 -09 0.63 mg 3 ity of mL 00:00: (three) [place] nebulizer 00 times Medical solution daily as Branch needed for Wheezing or Shortness of Breath. losartan 50 2020-09 Yes [id number] 50mg Take 1 [facility] mg tablet 10-04 tablet by ity o f 00:00: mouth 2 [place] 00 (two) Medical times Branch daily. clotrimazol 2020-09 Yes [id number] Apply to [facility] e-betametha 09 area(s) 2 ity of sone cream 00:00: (two) [place] 00 times Medical daily. Branch cyclobenzap 2020-09 Yes [id number] TAKE 1 [facility] rine 5 mg -09 TABLET BY ity o f tablet 00:00: MOUTH [place] 00 EVERY 8 Medical HOURS Branch NEEDED econazole 2020-09 Yes [id number] Apply to [facility] nitrate 1 % 10-04 area(s) 2 ity of cream 00:00: (two) [place] 00 times Medical daily. Branch albuterol 2020-09 Yes [id number] 2{puff} Inhale 2 [facility] (PROAIR 1-09 Puffs ity of HFA) 90 00:00: every 6 [place] mcg/actuati 00 (six) Medical on inhaler hours as Branc h needed for Wheezing or Shortness of Breath. triamcinolo 2020-09 Yes [id number] Apply to [facility] ne 0.025 % 1-09 area(s) 3 ity of ointment 00:00: (three) [place] 00 times Medical daily. For Branch itching diltiazem 2020-09 Yes [id number] 120mg Take 1 [facility] (CARTIA XT) -09 capsule by it y of 120 mg 24 00:00: mouth 2 [place] hr capsule 00 (two) Medical times Branch daily. cyanocobala 2020-09 Yes [id number] 1000ug 1 mL by [facility] min 1,000 1-09 Intramuscu ity of mcg/mL 00:00: lar route [place] injection 00 every 2 Medical (two) Branch weeks. levothyroxi 2020-09 Yes [id number] 50ug Take 1 [facility] ne 50 mcg 1-09 tablet by ity o f tablet 00:00: mouth [place] 00 every Medical morning. Branch fluticasone 2020-09 Yes [id number] 2{puff} Inhale 2 [facility] propionate 1-09 Puffs ity of (FLOVENT 00:00: every 12 [place] HFA) 110 00 (twelve) Medical mcg/actuati hours. Branch on inhaler Rinse mouth after each use. levalbutero 2020-09 Yes [id number] .63mg Inhale [facility] l 0.63 mg/3 1-09 0.63 mg 3 ity of mL 00:00: (three) [place] nebulizer 00 times Medical solution daily as Branch needed for Wheezing or Shortness of Breath. losartan 50 2020-09 Yes [id number] 50mg Take 1 [facility] mg tablet 1-09 tablet by ity o f 00:00: mouth 2 [place] 00 (two) Medical times Branch daily. clotrimazol 2020-09 Yes [id number] Apply to [facility] e-betametha 1-09 area(s) 2 ity of sone cream 00:00: (two) [place] 00 times Medical daily. Branch cyclobenzap 2020-09 Yes [id number] TAKE 1 [facility] rine 5 mg 1-09 TABLET BY ity o f tablet 00:00: MOUTH [place] 00 EVERY 8 Medical HOURS Branch NEEDED econazole 2020-09 Yes [id number] Apply to [facility] nitrate 1 % 1-09 area(s) 2 ity of cream 00:00: (two) [place] 00 times Medical daily. Branch albuterol 2020-09 Yes [id number] 2{puff} Inhale 2 [facility] (PROAIR 1-09 Puffs ity of HFA) 90 00:00: every 6 [place] mcg/actuati 00 (six) Medical on inhaler hours as Branc h needed for Wheezing or Shortness of Breath. triamcinolo 2020-09 Yes [id number] Apply to [facility] ne 0.025 % -09 area(s) 3 ity of ointment 00:00: (three) [place] 00 times Medical daily. For Branch itching diltiazem 2020-09 Yes [id number] 120mg Take 1 [facility] (CARTIA XT) 1-09 capsule by it y of 120 mg 24 00:00: mouth 2 [place] hr capsule 00 (two) Medical times Branch daily. cyanocobala 2020-09 Yes [id number] 1000ug 1 mL by [facility] min 1,000 1-09 Intramuscu ity of mcg/mL 00:00: lar route [place] injection 00 every 2 Medical (two) Branch weeks. levothyroxi 2020-09 Yes [id number] 50ug Take 1 [facility] ne 50 mcg 1-09 tablet by ity o f tablet 00:00: mouth [place] 00 every Medical morning. Branch fluticasone 2020-09 Yes [id number] 2{puff} Inhale 2 [facility] propionate 1-09 Puffs ity of (FLOVENT 00:00: every 12 [place] HFA) 110 00 (twelve) Medical mcg/actuati hours. Branch on inhaler Rinse mouth after each use. levalbutero 2020-09 Yes [id number] .63mg Inhale [facility] l 0.63 mg/3 1-09 0.63 mg 3 ity of mL 00:00: (three) [place] nebulizer 00 times Medical solution daily as Branch needed for Wheezing or Shortness of Breath. losartan 50 2020-09 Yes [id number] 50mg Take 1 [facility] mg tablet 1-09 tablet by ity o f 00:00: mouth 2 [place] 00 (two) Medical times Branch daily. clotrimazol 2020-09 Yes [id number] Apply to [facility] e-betametha 10-04 area(s) 2 ity of sone cream 00:00: (two) [place] 00 times Medical daily. Branch cyclobenzap 2020-09 Yes [id number] TAKE 1 [facility] rine 5 mg -09 TABLET BY ity o f tablet 00:00: MOUTH [place] 00 EVERY 8 Medical HOURS Branch NEEDED econazole 2020-09 Yes [id number] Apply to [facility] nitrate 1 % 10-04 area(s) 2 ity of cream 00:00: (two) [place] 00 times Medical daily. Branch albuterol 2020-09 Yes [id number] 2{puff} Inhale 2 [facility] (PROAIR 1-09 Puffs ity of HFA) 90 00:00: every 6 [place] mcg/actuati 00 (six) Medical on inhaler hours as Branc h needed for Wheezing or Shortness of Breath. triamcinolo 2020-09 Yes [id number] Apply to [facility] ne 0.025 % 10-04 area(s) 3 ity of ointment 00:00: (three) [place] 00 times Medical daily. For Branch itching diltiazem 2020-09 Yes [id number] 120mg Take 1 [facility] (CARTIA XT) 10-04 capsule by it y of 120 mg 24 00:00: mouth 2 [place] hr capsule 00 (two) Medical times Branch daily. cyanocobala 2020-09 Yes [id number] 1000ug 1 mL by [facility] min 1,000 09 Intramuscu ity of mcg/mL 00:00: lar route [place] injection 00 every 2 Medical (two) Branch weeks. levothyroxi 2020-09 Yes [id number] 50ug Take 1 [facility] ne 50 mcg 09 tablet by ity o f tablet 00:00: mouth [place] 00 every Medical morning. Branch fluticasone 2020-09 Yes [id number] 2{puff} Inhale 2 [facility] propionate 1-09 Puffs ity of (FLOVENT 00:00: every 12 [place] HFA) 110 00 (twelve) Medical mcg/actuati hours. Branch on inhaler Rinse mouth after each use. levalbutero 2020-09 Yes [id number] .63mg Inhale [facility] l 0.63 mg/3 1-09 0.63 mg 3 ity of mL 00:00: (three) [place] nebulizer 00 times Medical solution daily as Branch needed for Wheezing or Shortness of Breath. losartan 50 2020-09 Yes [id number] 50mg Take 1 [facility] mg tablet -09 tablet by ity o f 00:00: mouth 2 [place] 00 (two) Medical times Branch daily. clotrimazol 2020-09 Yes [id number] Apply to [facility] e-betametha 09 area(s) 2 ity of sone cream 00:00: (two) [place] 00 times Medical daily. Branch cyclobenzap 2020-09 Yes [id number] TAKE 1 [facility] rine 5 mg 09 TABLET BY ity o f tablet 00:00: MOUTH [place] 00 EVERY 8 Medical HOURS Branch NEEDED econazole 2020-09 Yes [id number] Apply to [facility] nitrate 1 % 10-04 area(s) 2 ity of cream 00:00: (two) [place] 00 times Medical daily. Branch albuterol 2020-09 Yes [id number] 2{puff} Inhale 2 [facility] (PROAIR -09 Puffs ity of HFA) 90 00:00: every 6 [place] mcg/actuati 00 (six) Medical on inhaler hours as Branc h needed for Wheezing or Shortness of Breath. triamcinolo 2020-09 Yes [id number] Apply to [facility] ne 0.025 % 10-04 area(s) 3 ity of ointment 00:00: (three) [place] 00 times Medical daily. For Branch itching diltiazem 2020-09 Yes [id number] 120mg Take 1 [facility] (CARTIA XT) 09 capsule by it y of 120 mg 24 00:00: mouth 2 [place] hr capsule 00 (two) Medical times Branch daily. cyanocobala 2020-09 Yes [id number] 1000ug 1 mL by [facility] min 1,000 -09 Intramuscu ity of mcg/mL 00:00: lar route [place] injection 00 every 2 Medical (two) Branch weeks. levothyroxi 2020-09 Yes [id number] 50ug Take 1 [facility] ne 50 mcg -09 tablet by ity o f tablet 00:00: mouth [place] 00 every Medical morning. Branch fluticasone 2020-09 Yes [id number] 2{puff} Inhale 2 [facility] propionate 1-09 Puffs ity of (FLOVENT 00:00: every 12 [place] HFA) 110 00 (twelve) Medical mcg/actuati hours. Branch on inhaler Rinse mouth after each use. levalbutero 2020-09 Yes [id number] .63mg Inhale [facility] l 0.63 mg/3 1-09 0.63 mg 3 ity of mL 00:00: (three) [place] nebulizer 00 times Medical solution daily as Branch needed for Wheezing or Shortness of Breath. losartan 50 2020-09 Yes [id number] 50mg Take 1 [facility] mg tablet -09 tablet by ity o f 00:00: mouth 2 [place] 00 (two) Medical times Branch daily. clotrimazol 2020-09 Yes [id number] Apply to [facility] e-betametha -09 area(s) 2 ity of sone cream 00:00: (two) [place] 00 times Medical daily. Branch cyclobenzap 2020-09 Yes [id number] TAKE 1 [facility] rine 5 mg -09 TABLET BY ity o f tablet 00:00: MOUTH [place] 00 EVERY 8 Medical HOURS Branch NEEDED econazole 2020-09 Yes [id number] Apply to [facility] nitrate 1 % 09 area(s) 2 ity of cream 00:00: (two) [place] 00 times Medical daily. Branch albuterol 2020-09 Yes [id number] 2{puff} Inhale 2 [facility] (PROAIR 1-09 Puffs ity of HFA) 90 00:00: every 6 [place] mcg/actuati 00 (six) Medical on inhaler hours as Branc h needed for Wheezing or Shortness of Breath. triamcinolo 2020-09 Yes [id number] Apply to [facility] ne 0.025 % -09 area(s) 3 ity of ointment 00:00: (three) [place] 00 times Medical daily. For Branch itching diltiazem 2020-09 Yes [id number] 120mg Take 1 [facility] n[facility] (CARTIA XT) -09 capsule by it y of 120 mg 24 00:00: mouth 2 [place] hr capsule 00 (two) Medical times Branch daily. cyanocobala 2020-09 Yes [id number] 1000ug 1 mL by [facility] min 1,000 1-09 Intramuscu ity of mcg/mL 00:00: lar route [place] injection 00 every 2 Medical (two) Branch weeks. levothyroxi 2020-09 Yes [id number] 50ug Take 1 [facility] ne 50 mcg 1-09 tablet by ity o f tablet 00:00: mouth [place] 00 every Medical morning. Branch fluticasone 2020-09 Yes [id number] 2{puff} Inhale 2 [facility] propionate 1-09 Puffs ity of (FLOVENT 00:00: every 12 [place] HFA) 110 00 (twelve) Medical mcg/actuati hours. Branch on inhaler Rinse mouth after each use. levalbutero 2020-09 Yes [id number] .63mg Inhale [facility] l 0.63 mg/3 1-09 0.63 mg 3 ity of mL 00:00: (three) [place] nebulizer 00 times Medical solution daily as Branch needed for Wheezing or Shortness of Breath. losartan 50 2020-09 Yes [id number] 50mg Take 1 [facility] mg tablet 1-09 tablet by ity o f 00:00: mouth 2 [place] 00 (two) Medical times Branch daily. clotrimazol 2020-09 Yes [id number] Apply to [facility] e-betametha -09 area(s) 2 ity of sone cream 00:00: (two) [place] 00 times Medical daily. Branch cyclobenzap 2020-09 Yes [id number] TAKE 1 [facility] rine 5 mg -09 TABLET BY ity o f tablet 00:00: MOUTH [place] 00 EVERY 8 Medical HOURS Branch NEEDED econazole 2020-09 Yes [id number] Apply to [facility] nitrate 1 % 10-04 area(s) 2 ity of cream 00:00: (two) [place] 00 times Medical daily. Branch albuterol 2020-09 Yes [id number] 2{puff} Inhale 2 [facility] (PROAIR 1-09 Puffs ity of HFA) 90 00:00: every 6 [place] mcg/actuati 00 (six) Medical on inhaler hours as Branc h needed for Wheezing or Shortness of Breath. triamcinolo 2020-09 Yes [id number] Apply to [facility] ne 0.025 % 1-09 area(s) 3 ity of ointment 00:00: (three) [place] 00 times Medical daily. For Branch itching diltiazem 2020-09 Yes [id number] 120mg Take 1 [facility] n[facility] (CARTIA XT) -09 capsule by it y of 120 mg 24 00:00: mouth 2 [place] hr capsule 00 (two) Medical times Branch daily. cyanocobala 2020-09 Yes [id number] 1000ug 1 mL by [facility] min 1,000 1-09 Intramuscu ity of mcg/mL 00:00: lar route [place] injection 00 every 2 Medical (two) Branch weeks. levothyroxi 2020-09 Yes [id number] 50ug Take 1 [facility] ne 50 mcg 1-09 tablet by ity o f tablet 00:00: mouth [place] 00 every Medical morning. Branch fluticasone 2020-09 Yes [id number] 2{puff} Inhale 2 [facility] propionate 1-09 Puffs ity of (FLOVENT 00:00: every 12 [place] HFA) 110 00 (twelve) Medical mcg/actuati hours. Branch on inhaler Rinse mouth after each use. levalbutero 2020-09 Yes [id number] .63mg Inhale [facility] l 0.63 mg/3 1-09 0.63 mg 3 ity of mL 00:00: (three) [place] nebulizer 00 times Medical solution daily as Branch needed for Wheezing or Shortness of Breath. losartan 50 2020-09 Yes [id number] 50mg Take 1 [facility] mg tablet -09 tablet by ity o f 00:00: mouth 2 [place] 00 (two) Medical times Branch daily. clotrimazol 2020-09 Yes [id number] Apply to [facility] e-betametha 10-04 area(s) 2 ity of sone cream 00:00: (two) [place] 00 times Medical daily. Branch cyclobenzap 2020-09 Yes [id number] TAKE 1 [facility] rine 5 mg -09 TABLET BY ity o f tablet 00:00: MOUTH [place] 00 EVERY 8 Medical HOURS Branch NEEDED econazole 2020-09 Yes [id number] Apply to [facility] nitrate 1 % 09 area(s) 2 ity of cream 00:00: (two) [place] 00 times Medical daily. Branch albuterol 2020-09 Yes [id number] 2{puff} Inhale 2 [facility] (PROAIR 1-09 Puffs ity of HFA) 90 00:00: every 6 [place] mcg/actuati 00 (six) Medical on inhaler hours as Branc h needed for Wheezing or Shortness of Breath. triamcinolo 2020-09 Yes [id number] Apply to [facility] ne 0.025 % -09 area(s) 3 ity of ointment 00:00: (three) [place] 00 times Medical daily. For Branch itching diltiazem 2020-09 Yes [id number] 120mg Take 1 [facility] n[facility] (CARTIA XT) -09 capsule by it y of 120 mg 24 00:00: mouth 2 [place] hr capsule 00 (two) Medical times Branch daily. cyanocobala 2020-09 Yes [id number] 1000ug 1 mL by [facility] min 1,000 -09 Intramuscu ity of mcg/mL 00:00: lar route [place] injection 00 every 2 Medical (two) Branch weeks. levothyroxi 2020-09 Yes [id number] 50ug Take 1 [facility] ne 50 mcg -09 tablet by ity o f tablet 00:00: mouth [place] 00 every Medical morning. Branch fluticasone 2020-09 Yes [id number] 2{puff} Inhale 2 [facility] propionate 1-09 Puffs ity of (FLOVENT 00:00: every 12 [place] HFA) 110 00 (twelve) Medical mcg/actuati hours. Branch on inhaler Rinse mouth after each use. levalbutero 2020-09 Yes [id number] .63mg Inhale [facility] l 0.63 mg/3 1-09 0.63 mg 3 ity of mL 00:00: (three) [place] nebulizer 00 times Medical solution daily as Branch needed for Wheezing or Shortness of Breath. losartan 50 2020-09 Yes [id number] 50mg Take 1 [facility] mg tablet -09 tablet by ity o f 00:00: mouth 2 [place] 00 (two) Medical times Branch daily. clotrimazol 2020-09 Yes [id number] Apply to [facility] e-betametha -09 area(s) 2 ity of sone cream 00:00: (two) [place] 00 times Medical daily. Branch cyclobenzap 2020-09 Yes [id number] TAKE 1 [facility] rine 5 mg 1-09 TABLET BY ity o f tablet 00:00: MOUTH [place] 00 EVERY 8 Medical HOURS Branch NEEDED econazole 2020-09 Yes [id number] Apply to [facility] nitrate 1 % 1-09 area(s) 2 ity of cream 00:00: (two) [place] 00 times Medical daily. Branch albuterol 2020-09 Yes [id number] 2{puff} Inhale 2 [facility] (PROAIR 1-09 Puffs ity of HFA) 90 00:00: every 6 [place] mcg/actuati 00 (six) Medical on inhaler hours as Branc h needed for Wheezing or Shortness of Breath. triamcinolo 2020-09 Yes [id number] Apply to [facility] ne 0.025 % 09 area(s) 3 ity of ointment 00:00: (three) [place] 00 times Medical daily. For Branch itching diltiazem 2020-09 Yes [id number] 120mg Take 1 [facility] n[facility] (CARTIA XT) -09 capsule by it y of 120 mg 24 00:00: mouth 2 [place] hr capsule 00 (two) Medical times Branch daily. cyanocobala 2020-09 Yes [id number] 1000ug 1 mL by [facility] min 1,000 1-09 Intramuscu ity of mcg/mL 00:00: lar route [place] injection 00 every 2 Medical (two) Branch weeks. levothyroxi 2020-09 Yes [id number] 50ug Take 1 [facility] ne 50 mcg 1-09 tablet by ity o f tablet 00:00: mouth [place] 00 every Medical morning. Branch fluticasone 2020-09 Yes [id number] 2{puff} Inhale 2 [facility] propionate 1-09 Puffs ity of (FLOVENT 00:00: every 12 [place] HFA) 110 00 (twelve) Medical mcg/actuati hours. Branch on inhaler Rinse mouth after each use. levalbutero 2020-09 Yes [id number] .63mg Inhale [facility] l 0.63 mg/3 1-09 0.63 mg 3 ity of mL 00:00: (three) [place] nebulizer 00 times Medical solution daily as Branch needed for Wheezing or Shortness of Breath. losartan 50 2020-09 Yes [id number] 50mg Take 1 [facility] mg tablet 1-09 tablet by ity o f 00:00: mouth 2 [place] 00 (two) Medical times Branch daily. clotrimazol 2020-09 Yes [id number] Apply to [facility] e-betametha 09 area(s) 2 ity of sone cream 00:00: (two) [place] 00 times Medical daily. Branch cyclobenzap 2020-09 Yes [id number] TAKE 1 [facility] rine 5 mg 1-09 TABLET BY ity o f tablet 00:00: MOUTH [place] 00 EVERY 8 Medical HOURS Branch NEEDED econazole 2020-09 Yes [id number] Apply to [facility] nitrate 1 % 1-09 area(s) 2 ity of cream 00:00: (two) [place] 00 times Medical daily. Branch albuterol 2020-09 Yes [id number] 2{puff} Inhale 2 [facility] (PROAIR 1-09 Puffs ity of HFA) 90 00:00: every 6 [place] mcg/actuati 00 (six) Medical on inhaler hours as Branc h needed for Wheezing or Shortness of Breath. triamcinolo 2020-09 Yes [id number] Apply to [facility] ne 0.025 % 09 area(s) 3 ity of ointment 00:00: (three) [place] 00 times Medical daily. For Branch itching diltiazem 2020-09 Yes [id number] 120mg Take 1 [facility] n[facility] (CARTIA XT) 1-09 capsule by it y of 120 mg 24 00:00: mouth 2 [place] hr capsule 00 (two) Medical times Branch daily. cyanocobala 2020-09 Yes [id number] 1000ug 1 mL by [facility] min 1,000 1-09 Intramuscu ity of mcg/mL 00:00: lar route [place] injection 00 every 2 Medical (two) Branch weeks. levothyroxi 2020-09 Yes [id number] 50ug Take 1 [facility] ne 50 mcg 1-09 tablet by ity o f tablet 00:00: mouth [place] 00 every Medical morning. Branch fluticasone 2020-09 Yes [id number] 2{puff} Inhale 2 [facility] propionate 1-09 Puffs ity of (FLOVENT 00:00: every 12 [place] HFA) 110 00 (twelve) Medical mcg/actuati hours. Branch on inhaler Rinse mouth after each use. levalbutero 2020-09 Yes [id number] .63mg Inhale [facility] l 0.63 mg/3 1-09 0.63 mg 3 ity of mL 00:00: (three) [place] nebulizer 00 times Medical solution daily as Branch needed for Wheezing or Shortness of Breath. losartan 50 2020-09 Yes [id number] 50mg Take 1 [facility] mg tablet -09 tablet by ity o f 00:00: mouth 2 [place] 00 (two) Medical times Branch daily. clotrimazol 2020-09 Yes [id number] Apply to [facility] e-betametha 09 area(s) 2 ity of sone cream 00:00: (two) [place] 00 times Medical daily. Branch cyclobenzap 2020-09 Yes [id number] TAKE 1 [facility] rine 5 mg 10-04 TABLET BY ity o f tablet 00:00: MOUTH [place] 00 EVERY 8 Medical HOURS Branch NEEDED econazole 2020-09 Yes [id number] Apply to [facility] nitrate 1 % 10-04 area(s) 2 ity of cream 00:00: (two) [place] 00 times Medical daily. Branch albuterol 2020-09 Yes [id number] 2{puff} Inhale 2 [facility] (PROAIR 10-04 Puffs ity of HFA) 90 00:00: every 6 [place] mcg/actuati 00 (six) Medical on inhaler hours as Branc h needed for Wheezing or Shortness of Breath. triamcinolo 2020-09 Yes [id number] Apply to [facility] ne 0.025 % 10-04 area(s) 3 ity of ointment 00:00: (three) [place] 00 times Medical daily. For Branch itching diltiazem 2020-09 Yes [id number] 120mg Take 1 [facility] n[facility] (CARTIA XT) 10-04 capsule by it y of 120 mg 24 00:00: mouth 2 [place] hr capsule 00 (two) Medical times Branch daily. cyclobenzap 2020-09- No [id number] TAKE 1 [facility] rine 5 mg 10-0424 TABLET BY ity of tablet 00:00: 00:00 MOUTH [place] 00 :00 EVERY 8 Medical HOURS Branch NEEDED cyclobenzap 2020-09- No [id number] TAKE 1 [facility] rine 5 mg 10-0424 TABLET BY ity of tablet 00:00: 00:00 MOUTH [place] 00 :00 EVERY 8 Medical HOURS Branch NEEDED cyclobenzap 2020-09- No [id number] TAKE 1 [facility] rine 5 mg 10-0424 TABLET BY ity of tablet 00:00: 00:00 MOUTH [place] 00 :00 EVERY 8 Medical HOURS Branch NEEDED cyclobenzap 2020-09- No [id number] TAKE 1 [facility] rine 5 mg 10-04 TABLET BY ity of tablet 00:00: 00:00 MOUTH [place] 00 :00 EVERY 8 Medical HOURS Branch NEEDED cyclobenzap 2020-09- No [id number] TAKE 1 [facility] rine 5 mg 10-04 TABLET BY ity of tablet 00:00: 00:00 MOUTH [place] 00 :00 EVERY 8 Medical HOURS Branch NEEDED cyanocobala 2020-09- No [id number] 1000ug 1 mL by [facility] min 1,000 10-04 Intramuscu ity of mcg/mL 00:00: 00:00 lar route [place] injection 00 :00 every 2 Medical (two) Branch weeks. fluticasone 2020-09- No [id number] 2{puff} Inhale 2 [facility] propionate 10-04 Puffs ity of (FLOVENT 00:00: 00:00 every 12 [place] HFA[place] 110 00 :00 (twelve) Medical mcg/actuati hours. Branch on inhaler Rinse mouth after each use. clotrimazol 2020-09- No [id number] Apply to [facility] e-betametha 10-04 area(s) 2 it y of sone cream 00:00: 00:00 (two) [place] 00 :00 times Medical daily. Branch econazole 2020-09- No [id number] Apply to [facility] nitrate 1 % 10-04 area(s) 2 it y of cream 00:00: 00:00 (two) [place] 00 :00 times Medical daily. Branch triamcinolo 2020-09- No [id number] Apply to [facility] ne 0.025 % 10-04 area(s) 3 ity of ointment 00:00: 00:00 (three) [place] 00 :00 times Medical daily. For Branch itching fluticasone 2020-09- No [id number] 2{puff} Inhale 2 [facility] propionate 10-04 Puffs ity of (FLOVENT 00:00[place] 00:[place] 12 [place] HFA[place] 110 00 :00 (twelve) Medical mcg/actuati hours. Branch on inhaler Rinse mouth after each use. clotrimazol 2020-09- No [id number] Apply to [facility] e-betametha 10-04 area(s) 2 it y of sone cream 00:00: 00:00 (two) [place] 00 :00 times Medical daily. Branch econazole 2020-09- No [id number] Apply to [facility] nitrate 1 % 10-04 area(s) 2 it y of cream 00:00: 00:00 (two) [place] 00 :00 times Medical daily. Branch triamcinolo 2020-09- No [id number] Apply to [facility] ne 0.025 % 10-04 area(s) 3 ity of ointment 00:00: 00:00 (three) [place] 00 :00 times Medical daily. For Branch itching levothyroxi 2020-09- No [id number] 50ug Take 1 [facility] ne 50 mcg 10-04 tablet by ity of tablet 00:00: 00:00 mouth [place] 00 :00 every Medical morning. Branch losartan 50 2020-09- No [id number] 50mg Take 1 [facility] mg tablet 10-04 tablet by ity of 00:00: 00:00 mouth 2 [place] 00 :00 (two) Medical times [place] daily. diltiazem 2020-09- No [id number] 120mg Take 1 [facility] (CARTIA XT) 10-04 capsule by i ty of 120 mg 24 00:00: 00:00 mouth 2 [place] hr capsule 00 :00 (two) Medical times Branch daily. rosuvastati 2020-09- No [id number] 10mg Take 1 [facility] n 10 mg 10-04 tablet by ity of tablet 00:00: 00:00 mouth at [place] 00 :00 bedtime. Medical Branch rosuvastati 2020-09- No [id number] 10mg Take 1 [facility] n 10 mg 10-04 tablet by ity of tablet 00:00: 00:00 mouth at [place] 00 :00 bedtime. Medical Branch proMETHazin 2019-09 [...] TABLET BY ity of tablet 00:00: MOUTH [place] 00 EVERY 6 Medical HOURS Branch NEEDED [...] 2019-0 2023- No [facility] [place] 120 1-16 24 ity of mg Tab 00:00: 00:00 [place] 00 :00 Medical Branch Ginkgo 2019-0 2023- No [facility] [place] 120 1-16 -24 ity of mg Tab 00:00: 00:00 [place] 00 :00 Medical Branch Ginkgo 2019-0 3- No [facility] [place] 120 10-11 ity of mg Tab 00:00: 00:00 [place] 00 :00 Medical Branch FERROUS Yes [id number] TAKE ONE [facility] vers SULFATE 325 8-13 TABLET BY ity of mg (65 mg 00:00: MOUTH [place] iron) 00 THREE Medical tablet TIMES Branch DAILY WITH MEALS FERROUS Yes [id number] TAKE ONE [facility] vers SULFATE 325 8-13 TABLET BY ity of mg (65 mg 00:00: MOUTH [place] iron) 00 THREE Medical tablet TIMES Branch DAILY WITH MEALS FERROUS Yes [id number] TAKE ONE [facility] vers SULFATE 325 8-13 TABLET BY ity of mg (65 mg 00:00: MOUTH [place] iron) 00 THREE Medical tablet TIMES Branch DAILY WITH MEALS FERROUS Yes [id number] TAKE ONE [facility] vers SULFATE 325 8-13 TABLET BY ity of mg (65 mg 00:00: MOUTH [place] iron) 00 THREE Medical tablet TIMES Branch DAILY WITH MEALS FERROUS Yes [id number] TAKE ONE [facility] vers SULFATE 325 8-13 TABLET BY ity of mg (65 mg 00:00: MOUTH [place] iron) 00 THREE Medical tablet TIMES Branch DAILY WITH MEALS FERROUS Yes [id number] TAKE ONE [facility] SULFATE 325 8-13 TABLET BY ity of mg (65 mg 00:00: MOUTH [place] iron) 00 THREE Medical tablet TIMES Branch DAILY WITH MEALS FERROUS Yes [id number] TAKE ONE [facility] vers SULFATE 325 8-13 TABLET BY ity of mg (65 mg 00:00: MOUTH [place] iron) 00 THREE Medical tablet TIMES Branch DAILY WITH MEALS FERROUS Yes [id number] TAKE ONE [facility] vers SULFATE 325 8-13 TABLET BY ity of mg (65 mg 00:00: MOUTH [place] iron) 00 THREE Medical tablet TIMES Branch DAILY WITH MEALS FERROUS Yes [id number] TAKE ONE [facility] vers SULFATE 325 8-13 TABLET BY ity of mg (65 mg 00:00: MOUTH [place] iron) 00 THREE Medical tablet TIMES Branch DAILY WITH MEALS FERROUS Yes [id number] TAKE ONE [facility] vers SULFATE 325 8-13 TABLET BY ity of mg (65 mg 00:00: MOUTH [place] iron) 00 THREE Medical tablet TIMES Branch DAILY WITH MEALS FERROUS Yes [id number] TAKE ONE [facility] vers SULFATE 325 8-13 TABLET BY ity of mg (65 mg 00:00: MOUTH [place] iron) 00 THREE Medical tablet TIMES Branch DAILY WITH MEALS FERROUS Yes [id number] TAKE ONE [facility] vers SULFATE 325 8-13 TABLET BY ity of mg (65 mg 00:00: MOUTH [place] iron) 00 THREE Medical tablet TIMES Branch DAILY WITH MEALS FERROUS Yes [id number] TAKE ONE [facility] vers SULFATE 325 8-13 TABLET BY ity of mg (65 mg 00:00: MOUTH [place] iron) 00 THREE Medical tablet TIMES Branch DAILY WITH MEALS FERROUS Yes [id number] TAKE ONE [facility] vers SULFATE 325 8-13 TABLET BY ity of mg (65 mg 00:00: MOUTH [place] iron) 00 THREE Medical tablet TIMES Branch DAILY WITH MEALS FERROUS Yes [id number] TAKE ONE [facility] vers SULFATE 325 8-13 TABLET BY ity of mg (65 mg 00:00: MOUTH [place] iron) 00 THREE Medical tablet TIMES Branch DAILY WITH MEALS FERROUS Yes [id number] TAKE ONE [facility] vers SULFATE 325 8-13 TABLET BY ity of mg (65 mg 00:00: MOUTH [place] iron) 00 THREE Medical tablet TIMES Branch DAILY WITH MEALS FERROUS Yes [id number] TAKE ONE [facility] vers SULFATE 325 8-13 TABLET BY ity of mg (65 mg 00:00: MOUTH [place] iron) 00 THREE Medical tablet TIMES Branch DAILY WITH MEALS FERROUS Yes [id number] TAKE ONE [facility] vers SULFATE 325 8-13 TABLET BY ity of mg (65 mg 00:00: MOUTH [place] iron) 00 THREE Medical tablet TIMES Branch DAILY WITH MEALS FERROUS Yes [id number] TAKE ONE [facility] vers SULFATE 325 8-13 TABLET BY ity of mg (65 mg 00:00: MOUTH [place] iron) 00 THREE Medical tablet TIMES Branch DAILY WITH MEALS FERROUS Yes [id number] TAKE ONE [facility] vers SULFATE 325 8-13 TABLET BY ity of mg (65 mg 00:00: MOUTH [place] iron) 00 THREE Medical tablet TIMES Branch DAILY WITH MEALS FERROUS Yes [id number] TAKE ONE [facility] vers SULFATE 325 8-13 TABLET BY ity of mg (65 mg 00:00: MOUTH [place] iron) 00 THREE Medical tablet TIMES Branch DAILY WITH MEALS FERROUS Yes [id number] TAKE ONE [facility] vers SULFATE 325 8-13 TABLET BY ity of mg (65 mg 00:00: MOUTH [place] iron) 00 THREE Medical tablet TIMES Branch DAILY WITH MEALS FERROUS Yes [id number] TAKE ONE [facility] vers SULFATE 325 8-13 TABLET BY ity of mg (65 mg 00:00: MOUTH [place] iron) 00 THREE Medical tablet TIMES Branch DAILY WITH MEALS FERROUS Yes [id number] TAKE ONE [facility] vers SULFATE 325 8-13 TABLET BY ity of mg (65 mg 00:00: MOUTH [place] iron) 00 THREE Medical tablet TIMES Branch DAILY WITH MEALS FERROUS Yes [id number] TAKE ONE [facility] vers SULFATE 325 8-13 TABLET BY ity of mg (65 mg 00:00: MOUTH [place] iron) 00 THREE Medical tablet TIMES Branch DAILY WITH MEALS FERROUS Yes [id number] TAKE ONE [facility] vers SULFATE 325 8-13 TABLET BY ity of mg (65 mg 00:00: MOUTH [place] iron) 00 THREE Medical tablet TIMES Branch DAILY WITH MEALS FERROUS Yes [id number] TAKE ONE [facility] vers SULFATE 325 8-13 TABLET BY ity of mg (65 mg 00:00: MOUTH [place] iron) 00 THREE Medical tablet TIMES Branch DAILY WITH MEALS FERROUS Yes [id number] TAKE ONE [facility] vers SULFATE 325 8-13 TABLET BY ity of mg (65 mg 00:00: MOUTH [place] iron) 00 THREE Medical tablet TIMES Branch DAILY WITH MEALS FERROUS Yes [id number] TAKE ONE [facility] vers SULFATE 325 8-13 TABLET BY ity of mg (65 mg 00:00: MOUTH [place] iron) 00 THREE Medical tablet TIMES Branch DAILY WITH MEALS FERROUS Yes [id number] TAKE ONE [facility] vers SULFATE 325 8-13 TABLET BY ity of mg (65 mg 00:00: MOUTH [place] iron) 00 THREE Medical tablet TIMES Branch DAILY WITH MEALS FERROUS Yes [id number] TAKE ONE [facility] vers SULFATE 325 8-13 TABLET BY ity of mg (65 mg 00:00: MOUTH [place] iron) 00 THREE Medical tablet TIMES Branch DAILY WITH MEALS FERROUS Yes [id number] TAKE ONE [facility] vers SULFATE 325 8-13 TABLET BY ity of mg (65 mg 00:00: MOUTH [place] iron) 00 THREE Medical tablet TIMES Branch DAILY WITH MEALS FERROUS Yes [id number] TAKE ONE [facility] vers SULFATE 325 8-13 TABLET BY ity of mg (65 mg 00:00: MOUTH [place] iron) 00 THREE Medical tablet TIMES Branch DAILY WITH MEALS FERROUS Yes [id number] TAKE ONE [facility] vers SULFATE 325 8-13 TABLET BY ity of mg (65 mg 00:00: MOUTH [place] iron) 00 THREE Medical tablet TIMES Branch DAILY WITH MEALS FERROUS Yes [id number] TAKE ONE [facility] vers SULFATE 325 8-13 TABLET BY ity of mg (65 mg 00:00: MOUTH [place] iron) 00 THREE Medical tablet TIMES Branch DAILY WITH MEALS FERROUS Yes [id number] TAKE ONE [facility] vers SULFATE 325 8-13 TABLET BY ity of mg (65 mg 00:00: MOUTH [place] iron) 00 THREE Medical tablet TIMES Branch DAILY WITH MEALS FERROUS Yes [id number] TAKE ONE [facility] vers SULFATE 325 8-13 TABLET BY ity of mg (65 mg 00:00: MOUTH [place] iron) 00 THREE Medical tablet TIMES Branch DAILY WITH MEALS FERROUS Yes [id number] TAKE ONE [facility] vers SULFATE 325 8-13 TABLET BY ity of mg (65 mg 00:00: MOUTH [place] iron) 00 THREE Medical tablet TIMES Branch DAILY WITH MEALS FERROUS Yes [id number] TAKE ONE [facility] vers SULFATE 325 8-13 TABLET BY ity of mg (65 mg 00:00: MOUTH [place] iron) 00 THREE Medical tablet TIMES Branch DAILY WITH MEALS FERROUS Yes [id number] TAKE ONE [facility] vers SULFATE 325 8-13 TABLET BY ity of mg (65 mg 00:00: MOUTH [place] iron) 00 THREE Medical tablet TIMES Branch DAILY WITH MEALS FERROUS Yes [id number] TAKE ONE [facility] vers SULFATE 325 8-13 TABLET BY ity of mg (65 mg 00:00: MOUTH [place] iron) 00 THREE Medical tablet TIMES Branch DAILY WITH MEALS FERROUS Yes [id number] TAKE ONE [facility] vers SULFATE 325 8-13 TABLET BY ity of mg (65 mg 00:00: MOUTH [place] iron) 00 THREE Medical tablet TIMES Branch DAILY WITH MEALS FERROUS Yes [id number] TAKE ONE [facility] vers SULFATE 325 8-13 TABLET BY ity of mg (65 mg 00:00: MOUTH [place] iron) 00 THREE Medical tablet TIMES Branch DAILY WITH MEALS FERROUS Yes [id number] TAKE ONE [facility] vers SULFATE 325 8-13 TABLET BY ity of mg (65 mg 00:00: MOUTH [place] iron) 00 THREE Medical tablet TIMES Branch DAILY WITH MEALS FERROUS Yes [id number] TAKE ONE [facility] vers SULFATE 325 8-13 TABLET BY ity of mg (65 mg 00:00: MOUTH [place] iron) 00 THREE Medical tablet TIMES Branch DAILY WITH MEALS FERROUS Yes [id number] TAKE ONE [facility] vers SULFATE 325 8-13 TABLET BY ity of mg (65 mg 00:00: MOUTH [place] iron) 00 THREE Medical tablet TIMES Branch DAILY WITH MEALS FERROUS Yes [id number] TAKE ONE [facility] vers SULFATE 325 8-13 TABLET BY ity of mg (65 mg 00:00: MOUTH [place] iron) 00 THREE Medical tablet TIMES Branch DAILY WITH MEALS FERROUS Yes [id number] TAKE ONE [facility] vers SULFATE 325 8-13 TABLET BY ity of mg (65 mg 00:00: MOUTH [place] iron) 00 THREE Medical tablet TIMES Branch DAILY WITH MEALS FERROUS Yes [id number] TAKE ONE [facility] vers SULFATE 325 8-13 TABLET BY ity of mg (65 mg 00:00: MOUTH [place] iron) 00 THREE Medical tablet TIMES Branch DAILY WITH MEALS FERROUS Yes [id number] TAKE ONE [facility] vers SULFATE 325 8-13 TABLET BY ity of mg (65 mg 00:00: MOUTH [place] iron) 00 THREE Medical tablet TIMES Branch DAILY WITH MEALS FERROUS Yes [id number] TAKE ONE [facility] vers SULFATE 325 8-13 TABLET BY ity of mg (65 mg 00:00: MOUTH [place] iron) 00 THREE Medical tablet TIMES Branch DAILY WITH MEALS FERROUS Yes [id number] TAKE ONE [facility] vers SULFATE 325 8-13 TABLET BY ity of mg (65 mg 00:00: MOUTH [place] iron) 00 THREE Medical tablet TIMES Branch DAILY WITH MEALS FERROUS Yes [id number] TAKE ONE [facility] vers SULFATE 325 8-13 TABLET BY ity of mg (65 mg 00:00: MOUTH [place] iron) 00 THREE Medical tablet TIMES Branch DAILY WITH MEALS FERROUS Yes [id number] TAKE ONE [facility] vers SULFATE 325 8-13 TABLET BY ity of mg (65 mg 00:00: MOUTH [place] iron) 00 THREE Medical tablet TIMES Branch DAILY WITH MEALS FERROUS Yes [id number] TAKE ONE [facility] vers SULFATE 325 8-13 TABLET BY ity of mg (65 mg 00:00: MOUTH [place] iron) 00 THREE Medical tablet TIMES Branch DAILY WITH MEALS FERROUS Yes [id number] TAKE ONE [facility] vers SULFATE 325 8-13 TABLET BY ity of mg (65 mg 00:00: MOUTH [place] iron) 00 THREE Medical tablet TIMES Branch DAILY WITH MEALS FERROUS Yes [id number] TAKE ONE [facility] vers SULFATE 325 8-13 TABLET BY ity of mg (65 mg 00:00: MOUTH [place] iron) 00 THREE Medical tablet TIMES Branch DAILY WITH MEALS FERROUS Yes [id number] TAKE ONE [facility] vers SULFATE 325 8-13 TABLET BY ity of mg (65 mg 00:00: MOUTH [place] iron) 00 THREE Medical tablet TIMES Branch DAILY WITH MEALS FERROUS Yes [id number] TAKE ONE [facility] vers SULFATE 325 8-13 TABLET BY ity of mg (65 mg 00:00: MOUTH [place] iron) 00 THREE Medical tablet TIMES Branch DAILY WITH MEALS FERROUS Yes [id number] TAKE ONE [facility] vers SULFATE 325 8-13 TABLET BY ity of mg (65 mg 00:00: MOUTH [place] iron) 00 THREE Medical tablet TIMES Branch DAILY WITH MEALS FERROUS Yes [id number] TAKE ONE [facility] vers SULFATE 325 8-13 TABLET BY ity of mg (65 mg 00:00: MOUTH [place] iron) 00 THREE Medical tablet TIMES Branch DAILY WITH MEALS FERROUS Yes [id number] TAKE ONE [facility] vers SULFATE 325 8-13 TABLET BY ity of mg (65 mg 00:00: MOUTH [place] iron) 00 THREE Medical tablet TIMES Branch DAILY WITH MEALS FERROUS Yes [id number] TAKE ONE [facility] vers SULFATE 325 8-13 TABLET BY ity of mg (65 mg 00:00: MOUTH [place] iron) 00 THREE Medical tablet TIMES Branch DAILY WITH MEALS FERROUS Yes [id number] TAKE ONE [facility] vers SULFATE 325 8-13 TABLET BY ity of mg (65 mg 00:00: MOUTH [place] iron) 00 THREE Medical tablet TIMES Branch DAILY WITH MEALS FERROUS Yes [id number] TAKE ONE [facility] vers SULFATE 325 8-13 TABLET BY ity of mg (65 mg 00:00: MOUTH [place] iron) 00 THREE Medical tablet TIMES Branch DAILY WITH MEALS FERROUS Yes [id number] TAKE ONE [facility] vers SULFATE 325 8-13 TABLET BY ity of mg (65 mg 00:00: MOUTH [place] iron) 00 THREE Medical tablet TIMES Branch DAILY WITH MEALS FERROUS Yes [id number] TAKE ONE [facility] vers SULFATE 325 8-13 TABLET BY ity of mg (65 mg 00:00: MOUTH [place] iron) 00 THREE Medical tablet TIMES Branch DAILY WITH MEALS FERROUS Yes [id number] TAKE ONE [facility] vers SULFATE 325 8-13 TABLET BY ity of mg (65 mg 00:00: MOUTH [place] iron) 00 THREE Medical tablet TIMES Branch DAILY WITH MEALS FERROUS Yes [id number] TAKE ONE [facility] vers SULFATE 325 8-13 TABLET BY ity of mg (65 mg 00:00: MOUTH [place] iron) 00 THREE Medical tablet TIMES Branch DAILY WITH MEALS FERROUS Yes [id number] TAKE ONE [facility] vers SULFATE 325 8-13 TABLET BY ity of mg (65 mg 00:00: MOUTH [place] iron) 00 THREE Medical tablet TIMES Branch DAILY WITH MEALS FERROUS Yes [id number] TAKE ONE [facility] vers SULFATE 325 8-13 TABLET BY ity of mg (65 mg 00:00: MOUTH [place] iron) 00 THREE Medical tablet TIMES Branch DAILY WITH MEALS FERROUS Yes [id number] TAKE ONE [facility] vers SULFATE 325 8-13 TABLET BY ity of mg (65 mg 00:00: MOUTH [place] iron) 00 THREE Medical tablet TIMES Branch DAILY WITH MEALS FERROUS Yes [id number] TAKE ONE [facility] vers SULFATE 325 8-13 TABLET BY ity of mg (65 mg 00:00: MOUTH [place] iron) 00 THREE Medical tablet TIMES Branch DAILY WITH MEALS FERROUS Yes [id number] TAKE ONE [facility] vers SULFATE 325 8-13 TABLET BY ity of mg (65 mg 00:00: MOUTH [place] iron) 00 THREE Medical tablet TIMES Branch DAILY WITH MEALS FERROUS Yes [id number] TAKE ONE [facility] vers SULFATE 325 8-13 TABLET BY ity of mg (65 mg 00:00: MOUTH [place] iron) 00 THREE Medical tablet TIMES Branch DAILY WITH MEALS FERROUS Yes [id number] TAKE ONE [facility] vers SULFATE 325 8-13 TABLET BY ity of mg (65 mg 00:00: MOUTH [place] iron) 00 THREE Medical tablet TIMES Branch DAILY WITH MEALS FERROUS Yes [id number] TAKE ONE [facility] vers SULFATE 325 8-13 TABLET BY ity of mg (65 mg 00:00: MOUTH [place] iron) 00 THREE Medical tablet TIMES Branch DAILY WITH MEALS FERROUS 2022- No [id number] TAKE ONE [facility] [place] SULFATE 325 8-13 -24 TABLET BY it y of mg (65 mg 00:00: 00:00 MOUTH [place] iron) 00 :00 THREE Medical tablet TIMES Branch DAILY WITH MEALS FERROUS 2022- No [id number] TAKE ONE [facility] [place] SULFATE 325 8-13 -24 TABLET BY it y of mg (65 mg 00:00: 00:00 MOUTH [place] iron) 00 :00 THREE Medical tablet TIMES Branch DAILY WITH MEALS FERROUS 2022- No [id number] TAKE ONE [facility] [place] SULFATE 325 8-13 -24 TABLET BY it y of mg (65 mg 00:00: 00:00 MOUTH [place] iron) 00 :00 THREE Medical tablet TIMES Branch DAILY WITH MEALS FERROUS 2022- No [id number] TAKE ONE [facility] [place] SULFATE 325 05-0824 TABLET BY it y of mg (65 mg 00:00: 00:00 MOUTH [place] iron) 00 :00 THREE Medical tablet TIMES Branch DAILY WITH MEALS FERROUS 2022- No [id number] TAKE ONE [facility] [place] SULFATE 325 05-08 TABLET BY it y of mg (65 mg 00:00: 00:00 MOUTH [place] iron) 00 :00 THREE Medical tablet TIMES Branch DAILY WITH MEALS coQ10, Yes [id number] 1{capsu Take 1 U nivers ubiquinol, 1-16 le} capsule by ity of 100 mg Cap 00:00: mouth [place] 00 daily. Medical Branch coQ10, Yes [id number] 1{capsu Take 1 U nivers ubiquinol, 1-16 le} capsule by ity of 100 mg Cap 00:00: mouth [place] 00 daily. Medical Branch coQ10, Yes [id number] 1{capsu Take 1 U nivers ubiquinol, 1-16 le} capsule by ity of 100 mg Cap 00:00: mouth [place] 00 daily. Medical Branch coQ10, Yes [id number] 1{capsu Take 1 U nivers ubiquinol, 1-16 le} capsule by ity of 100 mg Cap 00:00: mouth [place] 00 daily. Medical Branch coQ10, Yes [id number] 1{capsu Take 1 U nivers ubiquinol, 1-16 le} capsule by ity of 100 mg Cap 00:00: mouth [place] 00 daily. Medical Branch coQ10, Yes [id number] 1{capsu Take 1 U nivers ubiquinol, 1-16 le} capsule by ity of 100 mg Cap 00:00: mouth [place] 00 daily. Medical Branch coQ10, Yes [id number] 1{capsu Take 1 U nivers ubiquinol, 1-16 le} capsule by ity of 100 mg Cap 00:00: mouth [place] 00 daily. Medical Branch coQ10, Yes [id number] 1{capsu Take 1 U nivers ubiquinol, 1-16 le} capsule by ity of 100 mg Cap 00:00: mouth [place] 00 daily. Medical Branch coQ10, Yes [id number] 1{capsu Take 1 U nivers ubiquinol, 1-16 le} capsule by ity of 100 mg Cap 00:00: mouth [place] 00 daily. Medical Branch coQ10, Yes [id number] 1{capsu Take 1 U nivers ubiquinol, 1-16 le} capsule by ity of 100 mg Cap 00:00: mouth [place] 00 daily. Medical Branch coQ10, Yes [id number] 1{capsu Take 1 U nivers ubiquinol, 1-16 le} capsule by ity of 100 mg Cap 00:00: mouth [place] 00 daily. Medical Branch coQ10, Yes [id number] 1{capsu Take 1 U nivers ubiquinol, 1-16 le} capsule by ity of 100 mg Cap 00:00: mouth [place] 00 daily. Medical Branch coQ10, Yes [id number] 1{capsu Take 1 U nivers ubiquinol, 1-16 le} capsule by ity of 100 mg Cap 00:00: mouth [place] 00 daily. Medical Branch coQ10, Yes [id number] 1{capsu Take 1 U nivers ubiquinol, 1-16 le} capsule by ity of 100 mg Cap 00:00: mouth [place] 00 daily. Medical Branch coQ10, Yes [id number] 1{capsu Take 1 U nivers ubiquinol, 1-16 le} capsule by ity of 100 mg Cap 00:00: mouth [place] 00 daily. Medical Branch coQ10, Yes [id number] 1{capsu Take 1 U nivers ubiquinol, 1-16 le} capsule by ity of 100 mg Cap 00:00: mouth [place] 00 daily. Medical Branch coQ10, Yes [id number] 1{capsu Take 1 U nivers ubiquinol, 1-16 le} capsule by ity of 100 mg Cap 00:00: mouth [place] 00 daily. Medical Branch coQ10, Yes [id number] 1{capsu Take 1 U nivers ubiquinol, 1-16 le} capsule by ity of 100 mg Cap 00:00: mouth [place] 00 daily. Medical Branch coQ10, Yes [id number] 1{capsu Take 1 U nivers ubiquinol, 1-16 le} capsule by ity of 100 mg Cap 00:00: mouth [place] 00 daily. Medical Branch coQ10, Yes [id number] 1{capsu Take 1 U nivers ubiquinol, 1-16 le} capsule by ity of 100 mg Cap 00:00: mouth [place] 00 daily. Medical Branch coQ10, Yes [id number] 1{capsu Take 1 U nivers ubiquinol, 1-16 le} capsule by ity of 100 mg Cap 00:00: mouth [place] 00 daily. Medical Branch coQ10, Yes [id number] 1{capsu Take 1 U nivers ubiquinol, 1-16 le} capsule by ity of 100 mg Cap 00:00: mouth [place] 00 daily. Medical Branch coQ10, Yes [id number] 1{capsu Take 1 U nivers ubiquinol, 1-16 le} capsule by ity of 100 mg Cap 00:00: mouth [place] 00 daily. Medical Branch coQ10, Yes [id number] 1{capsu Take 1 U nivers ubiquinol, 1-16 le} capsule by ity of 100 mg Cap 00:00: mouth [place] 00 daily. Medical Branch coQ10, Yes [id number] 1{capsu Take 1 U nivers ubiquinol, 1-16 le} capsule by ity of 100 mg Cap 00:00: mouth [place] 00 daily. Medical Branch coQ10, Yes [id number] 1{capsu Take 1 U nivers ubiquinol, 1-16 le} capsule by ity of 100 mg Cap 00:00: mouth [place] 00 daily. Medical Branch coQ10, Yes [id number] 1{capsu Take 1 U nivers ubiquinol, 1-16 le} capsule by ity of 100 mg Cap 00:00: mouth [place] 00 daily. Medical Branch coQ10, Yes [id number] 1{capsu Take 1 U nivers ubiquinol, 1-16 le} capsule by ity of 100 mg Cap 00:00: mouth [place] 00 daily. Medical Branch coQ10, Yes [id number] 1{capsu Take 1 U nivers ubiquinol, 1-16 le} capsule by ity of 100 mg Cap 00:00: mouth [place] 00 daily. Medical Branch coQ10, Yes [id number] 1{capsu Take 1 U nivers ubiquinol, 1-16 le} capsule by ity of 100 mg Cap 00:00: mouth [place] 00 daily. Medical Branch coQ10, Yes [id number] 1{capsu Take 1 U nivers ubiquinol, 1-16 le} capsule by ity of 100 mg Cap 00:00: mouth [place] 00 daily. Medical Branch coQ10, Yes [id number] 1{capsu Take 1 U nivers ubiquinol, 1-16 le} capsule by ity of 100 mg Cap 00:00: mouth [place] 00 daily. Medical Branch coQ10, Yes [id number] 1{capsu Take 1 U nivers ubiquinol, 1-16 le} capsule by ity of 100 mg Cap 00:00: mouth [place] [address] [facility] Branch coQ10, Yes [id number] 1{capsu Take 1 U nivers ubiquinol, 1-16 le} capsule by ity of 100 mg Cap 00:00: mouth [place] 00 daily. Medical Branch coQ10, Yes [id number] 1{capsu Take 1 U nivers ubiquinol, 1-16 le} capsule by ity of 100 mg Cap 00:00: mouth [place] 00 daily. Medical Branch coQ10, Yes [id number] 1{capsu Take 1 U nivers ubiquinol, 1-16 le} capsule by ity of 100 mg Cap 00:00: mouth [place] [address] [facility] Branch coQ10, Yes [id number] 1{capsu Take 1 U nivers ubiquinol, 1-16 le} capsule by ity of 100 mg Cap 00:00: mouth [place] 00 daily. Medical Branch coQ10, Yes [id number] 1{capsu Take 1 U nivers ubiquinol, 1-16 le} capsule by ity of 100 mg Cap 00:00: mouth [place] 00 daily. Medical Branch coQ10, Yes [id number] 1{capsu Take 1 U nivers ubiquinol, 1-16 le} capsule by ity of 100 mg Cap 00:00: mouth [place] [address] [facility] Branch coQ10, Yes [id number] 1{capsu Take 1 U nivers ubiquinol, 1-16 le} capsule by ity of 100 mg Cap 00:00: mouth [place] [address] [facility] Branch coQ10, Yes [id number] 1{capsu Take 1 U nivers ubiquinol, 1-16 le} capsule by ity of 100 mg Cap 00:00: mouth [place] 00 daily. Medical Branch coQ10, Yes [id number] 1{capsu Take 1 U nivers ubiquinol, 1-16 le} capsule by ity of 100 mg Cap 00:00: mouth [place] 00 daily. Medical Branch coQ10, Yes [id number] 1{capsu Take 1 U nivers ubiquinol, 1-16 le} capsule by ity of 100 mg Cap 00:00: mouth [place] 00 daily. Medical Branch coQ10, Yes [id number] 1{capsu Take 1 U nivers ubiquinol, 1-16 le} capsule by ity of 100 mg Cap 00:00: mouth [place] 00 daily. Medical Branch coQ10, Yes [id number] 1{capsu Take 1 U nivers ubiquinol, 1-16 le} capsule by ity of 100 mg Cap 00:00: mouth [place] 00 daily. Medical Branch coQ10, Yes [id number] 1{capsu Take 1 U nivers ubiquinol, 1-16 le} capsule by ity of 100 mg Cap 00:00: mouth [place] 00 daily. Medical Branch coQ10, Yes [id number] 1{capsu Take 1 U nivers ubiquinol, 1-16 le} capsule by ity of 100 mg Cap 00:00: mouth [place] 00 daily. Medical Branch coQ10, Yes [id number] 1{capsu Take 1 U nivers ubiquinol, 1-16 le} capsule by ity of 100 mg Cap 00:00: mouth [place] 00 daily. Medical Branch coQ10, Yes [id number] 1{capsu Take 1 U nivers ubiquinol, 1-16 le} capsule by ity of 100 mg Cap 00:00: mouth [place] 00 daily. Medical Branch coQ10, Yes [id number] 1{capsu Take 1 U nivers ubiquinol, 1-16 le} capsule by ity of 100 mg Cap 00:00: mouth [place] 00 daily. Medical Branch coQ10, Yes [id number] 1{capsu Take 1 U nivers ubiquinol, 1-16 le} capsule by ity of 100 mg Cap 00:00: mouth [place] 00 daily. Medical Branch coQ10, Yes [id number] 1{capsu Take 1 U nivers ubiquinol, 1-16 le} capsule by ity of 100 mg Cap 00:00: mouth [place] 00 daily. Medical Branch coQ10, Yes [id number] 1{capsu Take 1 U nivers ubiquinol, 1-16 le} capsule by ity of 100 mg Cap 00:00: mouth [place] 00 daily. Medical Branch coQ10, Yes [id number] 1{capsu Take 1 U nivers ubiquinol, 1-16 le} capsule by ity of 100 mg Cap 00:00: mouth [place] 00 daily. Medical Branch coQ10, Yes [id number] 1{capsu Take 1 U nivers ubiquinol, 1-16 le} capsule by ity of 100 mg Cap 00:00: mouth [place] 00 daily. Medical Branch coQ10, Yes [id number] 1{capsu Take 1 U nivers ubiquinol, 1-16 le} capsule by ity of 100 mg Cap 00:00: mouth [place] 00 daily. Medical Branch coQ10, Yes [id number] 1{capsu Take 1 U nivers ubiquinol, 1-16 le} capsule by ity of 100 mg Cap 00:00: mouth [place] 00 daily. Medical Branch coQ10, Yes [id number] 1{capsu Take 1 U nivers ubiquinol, 1-16 le} capsule by ity of 100 mg Cap 00:00: mouth [place] 00 daily. Medical Branch coQ10, Yes [id number] 1{capsu Take 1 U nivers ubiquinol, 1-16 le} capsule by ity of 100 mg Cap 00:00: mouth [place] 00 daily. Medical Branch coQ10, Yes [id number] 1{capsu Take 1 U nivers ubiquinol, 1-16 le} capsule by ity of 100 mg Cap 00:00: mouth [place] 00 daily. Medical Branch coQ10, Yes [id number] 1{capsu Take 1 U nivers ubiquinol, 1-16 le} capsule by ity of 100 mg Cap 00:00: mouth [place] 00 daily. Medical Branch coQ10, Yes [id number] 1{capsu Take 1 U nivers ubiquinol, 1-16 le} capsule by ity of 100 mg Cap 00:00: mouth [place] 00 daily. Medical Branch coQ10, Yes [id number] 1{capsu Take 1 U nivers ubiquinol, 1-16 le} capsule by ity of 100 mg Cap 00:00: mouth [place] 00 daily. [facility] coQ10, Yes [id number] 1{capsu Take 1 [facility] nivers ubiquinol, 1-16 le} capsule by ity of 100 mg Cap 00:00: mouth [place] 00 daily. [facility] coQ10, Yes [id number] 1{capsu Take 1 [facility]ivers ubiquinol, 1-16 le} capsule by ity of 100 mg Cap 00:00: mouth [place] [address] [facility] coQ10, Yes [id number] 1{capsu Take 1 U nivers ubiquinol, 1-16 le} capsule by ity of 100 mg Cap 00:00: mouth [place] [address] [facility] coQ10, Yes [id number] 1{capsu Take 1 U nivers ubiquinol, 1-16 le} capsule by ity of 100 mg Cap 00:00: mouth [place] [address] [facility] coQ10, Yes [id number] 1{capsu Take 1 U nivers ubiquinol, 1-16 le} capsule by ity of 100 mg Cap 00:00: mouth [place] 00 daily. [facility] coQ10, Yes [id number] 1{capsu Take 1 U nivers ubiquinol, 1-16 le} capsule by ity of 100 mg Cap 00:00: mouth [place] 00 daily. [facility] coQ10, Yes [id number] 1{capsu Take 1 U nivers ubiquinol, 1-16 le} capsule by ity of 100 mg Cap 00:00: mouth [place] 00 daily. [facility] coQ10, Yes [id number] 1{capsu Take 1 U nivers ubiquinol, 1-16 le} capsule by ity of 100 mg Cap 00:00: mouth [place] [address] [facility] coQ10, Yes [id number] 1{capsu Take 1 U nivers ubiquinol, 1-16 le} capsule by ity of 100 mg Cap 00:00: mouth [place] 00 daily. [facility] coQ10, Yes [id number] 1{capsu Take 1 U nivers ubiquinol, 1-16 le} capsule by ity of 100 mg Cap 00:00: mouth [place] 00 daily. [facility] coQ10, Yes [id number] 1{capsu Take 1 U nivers ubiquinol, 1-16 le} capsule by ity of 100 mg Cap 00:00: mouth [place] 00 daily. [facility] coQ10, Yes [id number] 1{capsu Take 1 U nivers ubiquinol, 1-16 le} capsule by ity of 100 mg Cap 00:00: mouth [place] 00 daily. [facility] coQ10, Yes [id number] 1{capsu Take 1 U nivers ubiquinol, 1-16 le} capsule by ity of 100 mg Cap 00:00: mouth [place] [address] [facility] coQ10, Yes [id number] 1{capsu Take 1 U nivers ubiquinol, 1-16 le} capsule by ity of 100 mg Cap 00:00: mouth [place] [address] [facility] coQ10, Yes [id number] 1{capsu Take 1 U nivers ubiquinol, 1-16 le} capsule by ity of 100 mg Cap 00:00: mouth [place] 00 daily. [facility] coQ10, Yes [id number] 1{capsu Take 1 U nivers ubiquinol, 1-16 le} capsule by ity of 100 mg Cap 00:00: mouth [place] 00 daily. [facility] coQ10, Yes [id number] 1{capsu Take 1 U nivers ubiquinol, 1-16 le} capsule by ity of 100 mg Cap 00:00: mouth [place] 00 daily. [facility] coQ10, Yes [id number] 1{capsu Take 1 U nivers ubiquinol, 1-16 le} capsule by ity of 100 mg Cap 00:00: mouth [place] 00 daily. [facility] coQ10, Yes [id number] 1{capsu Take 1 U nivers ubiquinol, 1-16 le} capsule by ity of 100 mg Cap 00:00: mouth [place] [address] [facility] coQ10, Yes [id number] 1{capsu Take 1 U nivers ubiquinol, 1-16 le} capsule by ity of 100 mg Cap 00:00: mouth [place] [address] [facility] coQ10, Yes [id number] 1{capsu Take 1 U nivers ubiquinol, 1-16 le} capsule by ity of 100 mg Cap 00:00: mouth [place] 00 daily. [facility] coQ10, Yes [id number] 1{capsu Take 1 U nivers ubiquinol, 1-16 le} capsule by ity of 100 mg Cap 00:00: mouth [place] 00 daily. [facility] coQ10, Yes [id number] 1{capsu Take 1 U nivers ubiquinol, 1-16 le} capsule by ity of 100 mg Cap 00:00: mouth [place] 00 daily. [facility] coQ10, Yes [id number] 1{capsu Take 1 U nivers ubiquinol, 1-16 le} capsule by ity of 100 mg Cap 00:00: mouth [place] 00 daily. [facility] coQ10, Yes [id number] 1{capsu Take 1 U nivers ubiquinol, 1-16 le} capsule by ity of 100 mg Cap 00:00: mouth [place] 00 daily. [facility] coQ10, Yes [id number] 1{capsu Take 1 U nivers ubiquinol, 1-16 le} capsule by ity of 100 mg Cap 00:00: mouth [place] 00 daily. [facility] coQ10, Yes [id number] 1{capsu Take 1 U nivers ubiquinol, 1-16 le} capsule by ity of 100 mg Cap 00:00: mouth [place] 00 daily. [facility] coQ10, Yes [id number] 1{capsu Take 1 U nivers ubiquinol, 1-16 le} capsule by ity of 100 mg Cap 00:00: mouth [place] 00 daily. [facility] coQ10, Yes [id number] 1{capsu Take 1 U nivers ubiquinol, 1-16 le} capsule by ity of 100 mg Cap 00:00: mouth [place] 00 daily. [facility] coQ10, Yes [id number] 1{capsu Take 1 U nivers ubiquinol, 1-16 le} capsule by ity of 100 mg Cap 00:00: mouth [place] 00 daily. [facility] coQ10, Yes [id number] 1{capsu Take 1 U nivers ubiquinol, 1-16 le} capsule by ity of 100 mg Cap 00:00: mouth [place] 00 daily. [facility] coQ10, Yes [id number] 1{capsu Take 1 U nivers ubiquinol, 1-16 le} capsule by ity of 100 mg Cap 00:00: mouth [place] 00 daily. [facility] coQ10, Yes [id number] 1{capsu Take 1 U nivers ubiquinol, 1-16 le} capsule by ity of 100 mg Cap 00:00: mouth [place] 00 daily. [facility] coQ10, Yes [id number] 1{capsu Take 1 U nivers ubiquinol, 1-16 le} capsule by ity of 100 mg Cap 00:00: mouth [place] 00 daily. [facility] coQ10, Yes [id number] 1{capsu Take 1 U nivers ubiquinol, 1-16 le} capsule by ity of 100 mg Cap 00:00: mouth [place] [address] [facility] coQ10, Yes [id number] 1{capsu Take 1 U nivers ubiquinol, 1-16 le} capsule by ity of 100 mg Cap 00:00: mouth [place] 00 daily. [facility] coQ10, Yes [id number] 1{capsu Take 1 U nivers ubiquinol, 1-16 le} capsule by ity of 100 mg Cap 00:00: mouth [place] 00 daily. [facility] coQ10, Yes [id number] 1{capsu Take 1 U nivers ubiquinol, 1-16 le} capsule by ity of 100 mg Cap 00:00: mouth [place] 00 daily. [facility] coQ10, Yes [id number] 1{capsu Take 1 U nivers ubiquinol, 1-16 le} capsule by ity of 100 mg Cap 00:00: mouth [place] 00 daily. [facility] coQ10, Yes [id number] 1{capsu Take 1 U nivers ubiquinol, 1-16 le} capsule by ity of 100 mg Cap 00:00: mouth [place] 00 daily. [facility] coQ10, Yes [id number] 1{capsu Take 1 U nivers ubiquinol, 1-16 le} capsule by ity of 100 mg Cap 00:00: mouth [place] [address] [facility] coQ10, Yes [id number] 1{capsu Take 1 U nivers ubiquinol, 1-16 le} capsule by ity of 100 mg Cap 00:00: mouth [place] [address] [facility] coQ10, Yes [id number] 1{capsu Take 1 U nivers ubiquinol, 1-16 le} capsule by ity of 100 mg Cap 00:00: mouth [place] 00 daily. [facility] coQ10, Yes [id number] 1{capsu Take 1 U nivers ubiquinol, 1-16 le} capsule by ity of 100 mg Cap 00:00: mouth [place] 00 daily. [facility] coQ10, Yes [id number] 1{capsu Take 1 U nivers ubiquinol, 1-16 le} capsule by ity of 100 mg Cap 00:00: mouth [place] 00 daily. [facility] coQ10, Yes [id number] 1{capsu Take 1 U nivers ubiquinol, 1-16 le} capsule by ity of 100 mg Cap 00:00: mouth [place] [address] [facility] coQ10, Yes [id number] 1{capsu Take 1 U nivers ubiquinol, 1-16 le} capsule by ity of 100 mg Cap 00:00: mouth [place] 00 daily. [facility] coQ10, Yes [id number] 1{capsu Take 1 U nivers ubiquinol, 1-16 le} capsule by ity of 100 mg Cap 00:00: mouth [place] 00 daily. [facility] coQ10, Yes [id number] 1{capsu Take 1 U nivers ubiquinol, 1-16 le} capsule by ity of 100 mg Cap 00:00: mouth [place] 00 daily. [facility] coQ10, Yes [id number] 1{capsu Take 1 U nivers ubiquinol, 1-16 le} capsule by ity of 100 mg Cap 00:00: mouth [place] 00 daily. [facility] coQ10, Yes [id number] 1{capsu Take 1 U nivers ubiquinol, 1-16 le} capsule by ity of 100 mg Cap 00:00: mouth [place] 00 daily. [facility] coQ10, Yes [id number] 1{capsu Take 1 U nivers ubiquinol, 1-16 le} capsule by ity of 100 mg Cap 00:00: mouth [place] 00 daily. [facility] coQ10, Yes [id number] 1{capsu Take 1 U nivers ubiquinol, 1-16 le} capsule by ity of 100 mg Cap 00:00: mouth [place] 00 daily. [facility] coQ10, Yes [id number] 1{capsu Take 1 U nivers ubiquinol, 1-16 le} capsule by ity of 100 mg Cap 00:00: mouth [place] 00 daily. [facility] coQ10, 0 Yes [id number] 1{capsu Take 1 U nivers ubiquinol, 1-16 le} capsule by ity of 100 mg Cap 00:00: mouth [place] 00 daily. [facility] coQ10, 0 Yes [id number] 1{capsu Take 1 U nivers ubiquinol, 1-16 le} capsule by ity of 100 mg Cap 00:00: mouth [place] [address] [facility] loratadine Yes [id number] 10mg Take 1 [facility] 10 mg 1-23 tablet by ity of tablet 00:00: mouth [place] [address] [facility] loratadine Yes [id number] 10mg Take 1 [facility] 10 mg 1-23 tablet by ity of tablet 00:00: mouth [place] [address] [facility] loratadine Yes [id number] 10mg Take 1 [facility] 10 mg 1-23 tablet by ity of tablet 00:00: mouth [place] [address] [facility] loratadine Yes [id number] 10mg Take 1 [facility] 10 mg 1-23 tablet by ity of tablet 00:00: mouth [place] [address] [facility] loratadine Yes [id number] 10mg Take 1 [facility] 10 mg 1-23 tablet by ity of tablet 00:00: mouth [place] [address] [facility] loratadine 2021- No [id number] 10mg Take 1 [facility] 10 mg 1-23 06-13 tablet by ity of tablet 00:00: 00:00 mouth [place] 00 :[address] [facility] Immunizations Ordered Immunization Filled Immunization Date Status Commen ts Source Name Name SARS-COV-2 COVID-19 2022-07-27 Completed [facility] BIVAL[facility] Branch 0.3ML, IM, ([employer] BOOSTER) SARS-COV-2 COVID-19 2022-07-27 Completed [facility] VACCINE 00:00:[address] 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 TOP BOOSTER) SARS-COV-2 COVID-19 2022-07-27 Completed [facility] of [facility] VACCINE 00:00:00 [facility] 12 YRS+, BIVALENT Branch 0.3ML, IM, (PFIZ[employer] FOUNTAIN TOP BOOSTER) SARS-COV-2 COVID-19 2022-07-27 Completed [facility] of [facility] VACCINE 00:00:00 [facility] 12 YRS+, BIVALENT Branch 0.3ML, IM, (P[employer]OUNT[employer] BOOSTER) SARS-COV-2 COVID-19 2022-07-27 Completed [facility] of [facility] VACCINE 00:00:00 [facility] 12 YRS+, BIVALENT Branch 0.3ML, IM, (P[employer] BOOSTER) SARS-COV-2 COVID-19 2022-07-27 Completed [facility] of [facility] VACCINE 00:00:00 [facility] 12 YRS+, BIVALENT Branch 0.3ML, IM, (P[employer] TOP BOOSTER) SARS-COV-2 COVID-19 2022-07-27 Completed [facility] of [facility] VACCINE 00:00:00 [facility] 12 YRS+, BIVALENT Branch 0.3ML, IM, (P[employer]OUNT[employer] BOOSTER) SARS-COV-2 COVID-19 2022-07-27 Completed [facility] of [facility] VACCINE 00:00:00 [facility] 12 YRS+, BIVALENT Branch 0.3ML, IM, (PFI[employer] FOUNT[employer] TOP BOOSTER) SARS-COV-2 COVID-19 2022-07-27 Completed [facility] of [facility] VACCINE 00:00:00 [facility] 12 YRS+, BIVALENT Branch 0.3ML, IM, (PFI[employer] FOUNT[employer] TOP BOOSTER) SARS-COV-2 COVID-19 2022-07-27 Completed [facility] of [facility] VACCINE 00:00:00 [facility] 12 YRS+, BIVALENT Branch 0.3ML, IM, (P[employer] BOOSTER) SARS-COV-2 COVID-19 2022-07-27 Completed [facility] of [facility] VACCINE 00:00:00 [facility] 12 YRS+, BIVALENT Branch 0.3ML, IM, (PFI[employer] BOOSTER) SARS-COV-2 COVID-19 2022-07-27 Completed [facility] of [facility] VACCINE 00:00:00 [facility] 12 YRS+, BIVALENT Branch 0.3ML, IM, (P[employer] BOOSTER) SARS-COV-2 COVID-19 2022-07-27 Completed [facility] of [facility] VACCINE 00:00:00 [facility] 12 YRS+, BIVALENT Branch 0.3ML, IM, (PFI[employer] TOP BOOSTER) SARS-COV-2 COVID-19 2022-07-27 Completed [facility] of [facility] VACCINE 00:00:00 [facility] 12 YRS+, BIVALENT Branch 0.3ML, IM, (PFI[employer]OUNT[employer] TOP BOOSTER) SARS-COV-2 COVID-19 2022-07-27 Completed [facility] of [facility] VACCINE 00:00:00 [facility] 12 YRS+, BIVALENT Branch 0.3ML, IM, (PFI[employer] FOUNTAIN TOP BOOSTER) SARS-COV-2 COVID-19 2022-07-27 Completed [facility] of [facility] VACCINE 00:00:00 [facility] 12 YRS+, BIVALENT Branch 0.3ML, IM, (PFI[employer]ER FOUNT[employer] TOP BOOSTER) SARS-COV-2 COVID-19 2022-07-27 Completed [facility] of [facility] VACCINE 00:00:00 [facility] 12 YRS+, BIVALENT Branch 0.3ML, IM, (PFIZER FOUNTAIN TOP BOOSTER) SARS-COV-2 COVID-19 2022-07-27 Completed [facility] of [facility] VACCINE 00:00:00 [facility] 12 YRS+, BIVALENT Branch 0.3ML, IM, (PFIZER FOUNTAIN TOP BOOSTER) SARS-COV-2 COVID-19 2022-07-27 Completed [facility] of [facility] VACCINE 00:00:00 [facility] 12 YRS+, BIVALENT Branch 0.3ML, IM, (PFIZER FOUNTAIN TOP BOOSTER) SARS-COV-2 COVID-19 2022-07-27 Completed [facility] of [facility] VACCINE 00:00:00 [facility] 12 YRS+, BIVALENT Branch 0.3ML, IM, (PFIZER FOUNTAIN TOP BOOSTER) SARS-COV-2 COVID-19 2022-07-27 Completed [facility] of [facility] VACCINE 00:00:00 [facility] 12 YRS+, BIVALENT Branch 0.3ML, IM, (PFIZER FOUNTAIN TOP BOOSTER) SARS-COV-2 COVID-19 2022-07-27 Completed [facility] of [facility] VACCINE 00:00:00 [facility] 12 YRS+, BIVALENT Branch 0.3ML, IM, (PFIZER FOUNTAIN TOP BOOSTER) SARS-COV-2 COVID-19 2022-07-27 Completed [facility] of [facility] VACCINE 00:00:00 [facility] 12 YRS+, BIVALENT Branch 0.3ML, IM, (PFI[employer]ER F[employer] TOP BOOSTER) SARS-COV-2 COVID-19 2022-07-27 Completed [facility] of [facility] VACCINE 00:00:00 [facility] 12 YRS+, BIVALENT Branch 0.3ML, IM, (PFIZER FOUNTAIN TOP BOOSTER) SARS-COV-2 COVID-19 2022-07-27 Completed [facility] of [facility] VACCINE 00:00:00 [facility] 12 YRS+, BIVALENT Branch 0.3ML, IM, (PFIZER FOUNT[employer] TOP BOOSTER) SARS-COV-2 COVID-19 2022-07-27 Completed [facility] of [facility] VACCINE 00:00:00 [facility] 12 YRS+, BIVALENT Branch 0.3ML, IM, (PFIZER FOUNTAIN TOP BOOSTER) SARS-COV-2 COVID-19 2022-07-27 Completed [facility] of [facility] VACCINE 00:00:00 [facility] 12 YRS+, BIVALENT Branch 0.3ML, IM, (PFIZER FOUNT[employer] TOP BOOSTER) SARS-COV-2 COVID-19 2022-07-27 Completed [facility] of [facility] VACCINE 00:00:00 [facility] 12 YRS+, BIVALENT Branch 0.3ML, IM, (PFIZER FOUNTAIN TOP BOOSTER) SARS-COV-2 COVID-19 2022-07-27 Completed [facility] of [facility] VACCINE 00:00:00 [facility] 12 YRS+, BIVALENT Branch 0.3ML, IM, (PFIZER FOUNTAIN TOP BOOSTER) SARS-COV-2 COVID-19 2022-07-27 Completed [facility] of [facility] VACCINE 00:00:00 [facility] 12 YRS+, BIVALENT Branch 0.3ML, IM, (PFIZER FOUNTAIN TOP BOOSTER) SARS-COV-2 COVID-19 2022-07-27 Completed [facility] of [facility] VACCINE 00:00:00 [facility] 12 YRS+, BIVALENT Branch 0.3ML, IM, (PFIZER FOUNTAIN TOP BOOSTER) SARS-COV-2 COVID-19 2022-07-27 Completed [facility] of [facility] VACCINE 00:00:00 [facility] 12 YRS+, BIVALENT Branch 0.3ML, IM, (PFIZER FOUNTAIN TOP BOOSTER) SARS-COV-2 COVID-19 2022-07-27 Completed [facility] of [facility] VACCINE 00:00:00 [facility] 12 YRS+, BIVALENT Branch 0.3ML, IM, (PFIZER FOUNTAIN TOP BOOSTER) SARS-COV-2 COVID-19 2022-07-27 Completed [facility] of [facility] VACCINE 00:00:00 [facility] 12 YRS+, BIVALENT Branch 0.3ML, IM, (PFIZER FOUNTAIN TOP BOOSTER) SARS-COV-2 COVID-19 2022-07-27 Completed [facility] of [facility] VACCINE 00:00:00 [facility] 12 YRS+, BIVALENT Branch 0.3ML, IM, (PFIZER FOUNTAIN TOP BOOSTER) SARS-COV-2 COVID-19 2022-07-27 Completed [facility] of [facility] VACCINE 00:00:00 [facility] 12 YRS+, BIVALENT Branch 0.3ML, IM, (PFIZER FOUNTAIN TOP BOOSTER) SARS-COV-2 COVID-19 2022-07-27 Completed [facility] of [facility] VACCINE 00:00:00 [facility] 12 YRS+, BIVALENT Branch 0.3ML, IM, (PFIZER FOUNTAIN TOP BOOSTER) SARS-COV-2 COVID-19 2022-07-27 Completed [facility] of [facility] VACCINE 00:00:00 [facility] 12 YRS+, BIVALENT Branch 0.3ML, IM, (PFIZER FOUNTAIN TOP BOOSTER) SARS-COV-2 COVID-19 2022-07-27 Completed [facility] of [facility] VACCINE 00:00:00 [facility] 12 YRS+, BIVALENT Branch 0.3ML, IM, (PFIZER FOUNTAIN TOP BOOSTER) SARS-COV-2 COVID-19 2022-07-27 Completed [facility]ive [facility] of [facility] VACCINE 00:00:00 [facility] 12 YRS+, BIVALENT Branch 0.3ML, IM, (PFIZER FOUNTAIN TOP BOOSTER) SARS-COV-2 COVID-19 2022-07-27 Completed [facility] of [facility] VACCINE 00:00:00 [facility] 12 YRS+, BIVALENT Branch 0.3ML, IM, (PFIZER FOUNTAIN TOP BOOSTER) SARS-COV-2 COVID-19 2022-07-27 Completed [facility] of [facility] VACCINE 00:00:00 [facility] 12 YRS+, BIVALENT Branch 0.3ML, IM, (PFIZER FOUNTAIN TOP BOOSTER) SARS-COV-2 COVID-19 2022-07-27 Completed [facility] of [facility] VACCINE 00:00:00 [facility] 12 YRS+, BIVALENT Branch 0.3ML, IM, (PFIZER FOUNTAIN TOP BOOSTER) SARS-COV-2 COVID-19 2022-07-27 Completed [facility] of [facility] VACCINE 00:00:00 [facility] 12 YRS+, BIVALENT Branch 0.3ML, IM, (PFIZER FOUNTAIN TOP BOOSTER) SARS-COV-2 COVID-19 2022-07-27 Completed [facility]ive [facility] of [facility] VACCINE 00:00:00 [facility] 12 YRS+, BIVALENT Branch 0.3ML, IM, (PFIZER FOUNT[employer] TOP BOOSTER) SARS-COV-2 COVID-19 2022-07-27 Completed [facility] of [facility] VACCINE 00:00:00 [facility] 12 YRS+, BIVALENT Branch 0.3ML, IM, (PFIZER FOUNT[employer] TOP BOOSTER) SARS-COV-2 COVID-19 2022-07-27 Completed [facility] of [facility] VACCINE 00:00:00 [facility] 12 YRS+, BIVALENT Branch 0.3ML, IM, (PFIZER FOUNTAIN TOP BOOSTER) SARS-COV-2 COVID-19 2022-07-27 Completed [facility] of [facility] VACCINE 00:00:00 [facility] 12 YRS+, BIVALENT Branch 0.3ML, IM, (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) SARS-COV-2 COVID-19 2022-07-27 Completed [facility] of [facility] VACCINE 00:00:00 [facility] 12 YRS+, BIVALENT Branch 0.3ML, IM, (PFIZER F[employer] TOP BOOSTER) SARS-COV-2 COVID-19 2022-07-27 Completed [facility] of [facility] VACCINE 00:00:00 [facility] 12 YRS+, BIVALENT Branch 0.3ML, IM, (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 TOP BOOSTER) SARS-COV-2 COVID-19 2022-07-27 Completed [facility] of [facility] VACCINE 00:00:00 [facility] 12 YRS+, BIVALENT Branch 0.3ML, IM, (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 TOP BOOSTER) SARS-COV-2 COVID-19 2022-07-27 Completed [facility] of [facility] VACCINE 00:00:00 [facility] 12 YRS+, BIVALENT Branch 0.3ML, IM, (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 TOP BOOSTER) SARS-COV-2 COVID-19 2022-07-27 Completed [facility] of [facility] VACCINE 00:00:00 [facility] 12 YRS+, BIVALENT Branch 0.3ML, IM, (PFIZER 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 TOP BOOSTER) SARS-COV-2 COVID-19 2022-07-27 Completed Un[facility] of [facility] VACCINE 00:00:00 [facility] 12 YRS+, BIVALENT Branch 0.3ML, IM, (PFIZER 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 TOP BOOSTER) SARS-COV-2 COVID-19 2022-07-27 Completed [facility] of [facility] VACCINE 00:00:00 [facility] 12 YRS+, BIVALENT Branch 0.3ML, IM, (PFIZER FOUNTAIN TOP BOOSTER) SARS-COV-2 COVID-19 2022-07-27 Completed [facility] of [facility] VACCINE 00:00:00 [facility] 12 YRS+, BIVALENT Branch 0.3ML, IM, (PFIZER FOUNTAIN TOP BOOSTER) SARS-COV-2 COVID-19 2022-07-27 Completed Unive [facility] of [facility] VACCINE 00:00:00 [facility] 12 YRS+, BIVALENT Branch 0.3ML, IM, (PFIZER FOUNTAIN TOP BOOSTER) SARS-COV-2 COVID-19 2022-07-27 Completed [facility] of [facility] VACCINE 00:00:00 [facility] 12 YRS+, BIVALENT Branch 0.3ML, IM, (PFIZER FOUNTAIN TOP BOOSTER) SARS-COV-2 COVID-19 2022-07-27 Completed Un[facility] of [facility] VACCINE 00:00:00 [facility] 12 YRS+, BIVALENT Branch 0.3ML, IM, (PFIZER FOUNTAIN TOP BOOSTER) SARS-COV-2 COVID-19 2022-07-27 Completed [facility]ive [facility] of [facility] VACCINE 00:00:00 [facility] 12 YRS+, BIVALENT Branch 0.3ML, IM, (PFIZER 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 TOP BOOSTER) SARS-COV-2 COVID-19 2022-07-27 Completed Unive [facility] of [facility] VACCINE 00:00:00 [facility] 12 YRS+, BIVALENT Branch 0.3ML, IM, (PFIZER FOUNTAIN TOP BOOSTER) SARS-COV-2 COVID-19 2022-07-27 Completed [facility] of [facility] VACCINE 00:00:00 [facility] 12 YRS+, BIVALENT Branch 0.3ML, IM, (PFIZER FOUNTAIN TOP BOOSTER) SARS-COV-2 COVID-19 2022-07-27 Completed [facility] of [facility] VACCINE 00:00:00 [facility] 12 YRS+, BIVALENT Branch 0.3ML, IM, (PFIZER FOUNTAIN TOP BOOSTER) SARS-COV-2 COVID-19 2022-07-27 Completed Un[facility] of [facility] VACCINE 00:00:00 [facility] 12 YRS+, BIVALENT Branch 0.3ML, IM, (PFIZER FOUNTAIN TOP BOOSTER) SARS-COV-2 COVID-19 2022-07-27 Completed [facility] of [facility] VACCINE 00:00:00 [facility] 12 YRS+, BIVALENT Branch 0.3ML, IM, (PFIZER FOUNTAIN TOP BOOSTER) SARS-COV-2 COVID-19 2022-07-27 Completed [facility] of [facility] VACCINE 00:00:00 [facility] 12 YRS+, BIVALENT Branch 0.3ML, IM, (PFIZER 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 BOOSTER) SARS-COV-2 COVID-19 2022-07-27 Completed [facility] of [facility] VACCINE 00:00:00 [facility] 12 YRS+, BIVALENT Branch 0.3ML, IM, (PFIZER [...] Completed [facility] of 00:00:00 [facility] (hep a/hep b) 2022-02-24 Completed [facility] of 00:00:00 [facility] (hep a/hep b) 2022-02-24 Completed [facility] of 00:00:00 [facility] (hep a/hep b) 2022-02-24 Completed [facility] of 00:00:00 [facility] (hep a/hep b) 2022-02-24 Completed [facility] of 00:00:00 [facility] (hep a/hep b) 2022-02-24 Completed [facility] 00:00:00 [facility] (hep a/hep b) 2022-02-24 Completed [facility] of 00:00:00 [facility] (hep a/hep b) 2022-02-24 Completed [facility] 00:00:00 [facility] (hep a/hep b) 2022-02-24 Completed [facility] 00:00:00 [facility] (hep a/hep b) 2022-02-24 Completed [facility] 00:00:00 [facility] (hep a/hep b) 2022-02-24 Completed [facility] 00:00:00 [facility] (hep a/hep b) 2022-02-24 Completed [facility] 00:00:00 [facility] (hep a/hep b) 2022-02-24 Completed [facility] 00:00:00 [facility] (hep a/hep b) 2022-02-24 Completed [facility] of 00:00:00 [facility] (hep a/hep b) 2022-02-24 Completed [facility] 00:00:00 [facility] (hep a/hep b) 2022-02-24 Completed [facility] 00:00:00 [facility] (hep a/hep b) 2022-02-24 [...] Completed [facility] 00:00:00 [facility] (hep a/hep b) 2022-02-24 Completed [facility] of 00:00:00 [facility] (hep a/hep b) 2022-02-24 Completed [facility] of 00:00:00 [facility] (hep a/hep b) 2022-02-24 Completed [facility] of 00:00:00 [facility] (hep a/hep b) 2022-02-24 Completed [facility] 00:00:00 [facility] (hep a/hep b) 2022-02-24 Completed [facility] 00:00:00 [facility] (hep a/hep b) 2022-02-24 [...] Completed [facility] 00:00:00 [facility] (hep a/hep b) 2022-02-24 Completed [facility] 00[facility]00:00 [facility] [facility] (hep a/hep b) 2022-02-24 Completed [facility] 00:00:00 [facility] (hep a/hep b) 2022-02-24 Completed [facility] 00:00:00 [facility] (hep a/hep b) 2022-02-24 Completed [facility] 00:00:00 [facility] (hep a/hep b) 2022-02-24 Completed [facility] 00:00:00 [facility] (hep a/hep b) 2022-02-24 Completed [facility] 00:00:[address] [facility] (hep a/hep b) 2022-02-24 Completed [facility] 00:00:00 [facility] (hep a/hep b) 2022-02-24 Completed [facility] 00:00:00 [facility] (hep a/hep b) 2022-02-24 Completed [facility] 00:00:00 [facility] (hep a/hep b) 2022-02-24 Completed [facility] 00:00:00 [facility] (hep a/hep b) 2022-02-24 [...] Completed [facility] 00:00:00 [facility] (hep a/hep b) 2022-02-24 Completed [facility] 00:00:00 [facility] (hep a/hep b) 2022-02-24 Completed [facility] 00:00:00 [facility] (hep a/hep b) 2022-02-24 Completed [facility] 00:00:00 [facility] (hep a/hep b) 2022-02-24 Completed [facility] 00:00:00 [facility] (hep a/hep b) 2022-02-24 [...] Completed [facility] 00:00:00 [facility] (hep a/hep b) 2022-02-24 [...] Completed [facility] 00:00:00 [facility] (hep a/hep b) 2022-02-24 [...] Completed [facility] 00:00:00 [facility] (hep a/hep b) 2022-02-24 Completed [facility] 00:00:00 [facility] (hep a/hep b) 2022-02-24 Completed [facility] 00:00:00 [facility] (hep a/hep b) 2022-02-24 Completed [facility] 00:00:00 [facility] (hep a/hep b) 2022-02-24 Completed [facility] 00:00:00 [facility] (hep a/hep b) 2022-02-24 Completed [facility] 00:00:00 [facility] (hep a/hep b) 2022-02-24 Completed [facility] 00:00:00 [facility] (hep a/hep b) 2022-02-24 Completed [facility] 00:00:00 [facility] (hep a/hep b) 2022-02-24 Completed [facility] 00:00:00 [facility] (hep a/hep b) 2022-02-24 Completed [facility] 00:00:00 [facility] (hep a/hep b) 2022-02-24 Completed [facility] 00:00:00 [facility] (hep a/hep b) 2022-02-24 Completed [facility] 00:00:00 [facility] (hep a/hep b) 2022-02-24 [...] Completed [facility] 00:00:00 [facility] (hep a/hep b) 2022-02-24 Completed [facility] 00:00:00 [facility] (hep a/hep b) 2022-02-24 Completed [facility] 00:00:00 [facility] (hep a/hep b) 2022-02-24 [...] Completed [facility] 00:00:00 [facility] (hep a/hep b) 2022-01-14 [...] Completed [facility] 00:00:00 [facility] (hep a/hep b) 2022-01-14 Completed [facility] 00:00:00 [facility] (hep a/hep b) 2022-01-14 Completed [facility] 00:00:00 [facility] (hep a/hep b) 2022-01-14 Completed [facility] 00:00:00 [facility] (hep a/hep b) 2022-01-14 Completed [facility] 00:00:00 [facility] (hep a/hep b) 2022-01-14 Completed [facility] 00:00:00 [facility] (hep a/hep b) 2022-01-14 Completed [facility] 00:00:00 [facility] (hep a/hep b) 2022-01-14 Completed [facility] 00:00:00 [facility] (hep a/hep b) 2022-01-14 Completed [facility] 00:00:00 [facility] (hep a/hep b) 2022-01-14 Completed [facility] 00:00:[address] [facility] (hep a/hep b) 2022-01-14 Completed [facility] 00:00:00 [facility] (hep a/hep b) 2022-01-14 Completed [facility] 00:00:00 [facility] (hep a/hep b) 2022-01-14 [...] Completed [facility] 00:00:00 [facility] (hep a/hep b) 2022-01-14 Completed [facility] 00:00:00 [facility] (hep a/hep b) 2022-01-14 Completed [facility] 00:00:00 [facility] (hep a/hep b) 2022-01-14 Completed [facility] 00:00:00 [facility] (hep a/hep b) 2022-01-14 Completed [facility] 00:00:00 [facility] (hep a/hep b) 2022-01-14 [...] 2022-01-14 Completed [facility] 00:00:[address] [facility] (hep a/hep b) 2022-01-14 Completed [...] Completed [facility] 00:00:00 [facility] (hep a/hep b) 2022-01-14 Completed [facility] 00:00:00 [facility] (hep a/hep b) 2022-01-14 Completed [facility] 00:00:00 [facility] (hep a/hep b) 2022-01-14 Completed [facility] 00:00:00 [facility] (hep a/hep b) 2022-01-14 Completed [facility] 00:00:00 [facility] (hep a/hep b) 2022-01-14 Completed [facility] 00:00:00 [facility] (hep a/hep b) 2022-01-14 Completed [facility] 00:00:00 [facility] (hep a/hep b) 2022-01-14 Completed [facility] 00:00:[address] [facility] (hep a/hep b) 2022-01-14 Completed [facility] 00:00:00 [facility] (hep a/hep b) 2022-01-14 Completed [facility] 00:00:00 [facility] (hep a/hep b) 2022-01-14 Completed [facility] 00:00:00 [facility] (hep a/hep b) 2022-01-14 Completed [facility] 00:00:00 [facility] (hep a/hep b) 2022-01-14 [...] Completed [facility] 00:00:00 [facility] (hep a/hep b) 2022-01-14 Completed [facility] 00:00:00 [facility] (hep a/hep b) 2022-01-14 Completed [facility] 00:00:00 [facility] (hep a/hep b) 2022-01-14 Completed [facility] 00:00:00 [facility] (hep a/hep b) 2022-01-14 Completed [facility] 00:00:00 [facility] (hep a/hep b) 2022-01-14 Completed [facility] 00:00:00 [facility] (hep a/hep b) 2022-01-14 Completed [facility] 00:00:00 [facility] (hep a/hep b) 2022-01-14 Completed [facility] 00:00:00 [facility] (hep a/hep b) 2022-01-14 Completed [facility] 00:00:00 [facility] (hep a/hep b) 2022-01-14 Completed [facility] 00:00:00 [facility] (hep a/hep b) 2022-01-14 Completed [facility] 00:00:00 [facility] (hep a/hep b) 2022-01-14 Completed [facility] 00:00:00 [facility] (hep a/hep b) 2022-01-14 [...] Completed [facility] 00:00:00 [facility] (hep a/hep b) 2022-01-14 Completed [facility] 00:00:00 [facility] (hep a/hep b) 2022-01-14 Completed [facility] 00:00:00 [facility] (hep a/hep b) 2022-01-14 Completed [facility] 00:00:00 [facility] (hep a/hep b) 2022-01-14 Completed [facility] 00:00:00 [facility] (hep a/hep b) 2022-01-14 Completed [facility] 00:00:00 [facility] (hep a/hep b) 2022-01-14 Completed [facility] 00:00:00 [facility] (hep a/hep b) 2022-01-14 Completed [facility] 00:00:00 [facility] (hep a/hep b) 2022-01-14 Completed [facility] 00:00:[address] [facility] (hep a/hep b) 2022-01-14 Completed [facility] 00:00:00 [facility] (hep a/hep b) 2022-01-14 Completed [facility] 00:00:00 [facility] (hep a/hep b) 2022-01-14 [...] Completed [facility] 00:00:00 [facility] (hep a/hep b) 2022-01-14 Completed [facility] 00:00:00 [facility] (hep a/hep b) 2022-01-14 Completed [facility] 00:00:00 [facility] (hep a/hep b) 2022-01-14 Completed [facility] 00:00:00 [facility] (hep a/hep b) 2022-01-14 Completed [facility] 00:00:00 [facility] (hep a/hep b) 2022-01-14 [...] 2022-01-14 Completed [facility] 00:00:[address] [facility] (hep a/hep b) 2022-01-14 Completed [facility] 00:00:00 [facility] (hep a/hep b) 2022-01-14 Completed [facility] 00:00:00 [facility] (hep a/hep b) 2022-01-14 Completed [facility] 00:00:00 [facility] (hep a/hep b) 2022-01-14 Completed [facility] 00:00:00 [facility] (hep a/hep b) 2022-01-14 Completed [facility] 00:00:00 [facility] (hep a/hep b) 2022-01-14 Completed [facility] 00:00:00 [facility] (hep a/hep b) 2022-01-14 Completed [facility] 00:00:00 [facility] (hep a/hep b) 2022-01-14 Completed [facility] 00:00:00 [facility] (hep a/hep b) 2022-01-14 Completed [facility] 00:00:00 [facility] (hep a/hep b) 2022-01-14 Completed [facility] 00:00:00 [facility] (hep a/hep b) 2022-01-14 Completed [facility] 00:00:00 [facility] (hep a/hep b) 2022-01-14 Completed [facility] 00:00:00 [facility] (hep a/hep b) 2022-01-14 Completed [facility] 00:00:00 [facility] (hep a/hep b) 2022-01-14 Completed [facility] 00:00:00 [facility] (hep a/hep b) 2022-01-14 Completed [facility] 00:00:00 [facility] SARS-COV-2 COVID-19 2021-07-23 Completed [facility] of PFIZER VACCINE 00:00:00 [facility] SARS-COV-2 COVID-19 2021-07-23 Completed [facility] of PFIZER VACCINE 00:00:00 [facility] SARS-COV-2 COVID-19 2021-07-23 Completed [facility] of PFIZER VACCINE 00:00:00 [facility] SARS-COV-2 COVID-19 2021-07-23 Completed [facility] PFIZER VACCINE 00:00:00 [facility] SARS-COV-2 COVID-19 2021-07-23 Completed [facility] of PFIZER VACCINE 00:00:00 [facility] SARS-COV-2 COVID-19 2021-07-23 Completed [facility] of PFIZER VACCINE 00:00:00 [facility] SARS-COV-2 COVID-19 2021-07-23 Completed [facility] of PFIZER VACCINE 00:00:00 [facility] SARS-COV-2 COVID-19 2021-07-23 Completed [facility] of PFIZER VACCINE 00:00:00 [facility] SARS-COV-2 COVID-19 2021-07-23 Completed [facility] of PFIZER VACCINE 00:00:00 [facility] SARS-COV-2 COVID-19 2021-07-23 Completed [facility] of PFIZER VACCINE 00:00:00 [facility] SARS-COV-2 COVID-19 2021-07-23 Completed [facility] of PFIZER VACCINE 00:00:00 [facility] SARS-COV-2 COVID-19 2021-07-23 Completed [facility] of PFIZER VACCINE 00:00:00 [facility] SARS-COV-2 COVID-19 2021-07-23 Completed [facility] of PFIZER VACCINE 00:00:00 [facility] SARS-COV-2 COVID-19 2021-07-23 Completed [facility] of PFIZER VACCINE 00:00:00 [facility] SARS-COV-2 COVID-19 2021-07-23 Completed [facility] of PFIZER VACCINE 00:00:00 [facility] SARS-COV-2 COVID-19 2021-07-23 Completed [facility] of PFIZER VACCINE 00:00:00 [facility] SARS-COV-2 COVID-19 2021-07-23 Completed [facility] of PFIZER VACCINE 00:00:00 [facility] SARS-COV-2 COVID-19 2021-07-23 Completed [facility] of PFIZER VACCINE 00:00:00 [facility] SARS-COV-2 COVID-19 2021-07-23 Completed [facility] of PFIZER VACCINE 00:00:00 [facility] SARS-COV-2 COVID-19 2021-07-23 Completed [facility] of PFIZER VACCINE 00:00:00 [facility] SARS-COV-2 COVID-19 2021-07-23 Completed [facility] of PFIZER VACCINE 00:00:00 [facility] SARS-COV-2 COVID-19 2021-07-23 Completed [facility] of PFIZER VACCINE 00:00:00 [facility] SARS-COV-2 COVID-19 2021-07-23 Completed [facility] of PFIZER VACCINE 00:00:00 [facility] SARS-COV-2 COVID-19 2021-07-23 Completed [facility] PFIZER VACCINE 00:00:00 [facility] SARS-COV-2 COVID-19 2021-07-23 Completed [facility] of PFIZER VACCINE 00:00:00 [facility] SARS-COV-2 COVID-19 2021-07-23 Completed [facility] of PFIZER VACCINE 00:00:00 [facility] SARS-COV-2 COVID-19 2021-07-23 Completed [facility] of PFIZER VACCINE 00:00:00 [facility] SARS-COV-2 COVID-19 2021-07-23 Completed [facility] PFIZER VACCINE 00:00:00 [facility] SARS-COV-2 COVID-19 2021-07-23 Completed [facility] of PFIZER VACCINE 00:00:00 [facility] SARS-COV-2 COVID-19 2021-07-23 Completed [facility] PFIZER VACCINE 00:00:00 [facility] SARS-COV-2 COVID-19 2021-07-23 Completed [facility] PFIZER VACCINE 00:00:00 [facility] SARS-COV-2 COVID-19 2021-07-23 Completed [facility] PFIZER VACCINE 00:00:00 [facility] SARS-COV-2 COVID-19 2021-07-23 Completed [facility] of PFIZER VACCINE 00:00:00 [facility] SARS-COV-2 COVID-19 2021-07-23 Completed [facility] of PFIZER VACCINE 00:00:00 [facility] SARS-COV-2 COVID-19 2021-07-23 Completed [facility] of PFIZER VACCINE 00:00:00 [facility] SARS-COV-2 COVID-19 2021-07-23 Completed [facility] of PFIZER VACCINE 00:00:00 [facility] SARS-COV-2 COVID-19 2021-07-23 Completed [facility] PFIZER VACCINE 00:00:00 [facility] SARS-COV-2 COVID-19 2021-07-23 Completed [facility] of PFIZER VACCINE 00:00:00 [facility] SARS-COV-2 COVID-19 2021-07-23 Completed [facility] of PFIZER VACCINE 00:00:00 [facility] SARS-COV-2 COVID-19 2021-07-23 Completed [facility] PFIZER VACCINE 00:00:00 [facility] SARS-COV-2 COVID-19 2021-07-23 Completed [facility] PFIZER VACCINE 00:00:00 [facility] SARS-COV-2 COVID-19 2021-07-23 Completed [facility] of PFIZER VACCINE 00:00:00 [facility] SARS-COV-2 COVID-19 2021-07-23 Completed [facility] PFIZER VACCINE 00:00:00 [facility] SARS-COV-2 COVID-19 2021-07-23 Completed [facility] PFIZER VACCINE 00:00:00 [facility] SARS-COV-2 COVID-19 2021-07-23 Completed [facility] PFIZER VACCINE 00:00:00 [facility] SARS-COV-2 COVID-19 2021-07-23 Completed [facility] PFIZER VACCINE 00:00:00 [facility] SARS-COV-2 COVID-19 2021-07-23 Completed [facility] of PFIZER VACCINE 00:00:00 [facility] SARS-COV-2 COVID-19 2021-07-23 Completed [facility] PFIZER VACCINE 00:00:00 [facility] SARS-COV-2 COVID-19 2021-07-23 Completed [facility] PFIZER VACCINE 00:00:00 [facility] SARS-COV-2 COVID-19 2021-07-23 Completed [facility] PFIZER VACCINE 00:00:00 [facility] SARS-COV-2 COVID-19 2021-07-23 Completed [facility] PFIZER VACCINE 00:00:00 [facility] SARS-COV-2 COVID-19 2021-07-23 Completed [facility] PFIZER VACCINE 00:00:00 [facility] SARS-COV-2 COVID-19 2021-07-23 Completed [facility] PFIZER VACCINE 00:00:00 [facility] SARS-COV-2 COVID-19 2021-07-23 Completed [facility] PFIZER VACCINE 00:00:00 [facility] SARS-COV-2 COVID-19 2021-07-23 Completed [facility] PFIZER VACCINE 00:00:00 [facility] SARS-COV-2 COVID-19 2021-07-23 Completed [facility] PFIZER VACCINE 00:00:00 [facility] SARS-COV-2 COVID-19 2021-07-23 Completed [facility] PFIZER VACCINE 00:00:00 [facility] SARS-COV-2 COVID-19 2021-07-23 Completed [facility] PFIZER VACCINE 00:00:00 [facility] SARS-COV-2 COVID-19 2021-07-23 Completed [facility] PFIZER VACCINE 00:00:00 [facility] SARS-COV-2 COVID-19 2021-07-23 Completed [facility] PFIZER VACCINE 00:00:00 [facility] SARS-COV-2 COVID-19 2021-07-23 Completed [facility] PFIZER VACCINE 00:00:00 [facility] SARS-COV-2 COVID-19 2021-07-23 Completed [facility] PFIZER VACCINE 00:00:00 [facility] SARS-COV-2 COVID-19 2021-07-23 Completed [facility] PFIZER VACCINE 00:00:00 [facility] SARS-COV-2 COVID-19 2021-07-23 Completed [facility] PFIZER VACCINE 00:00:00 [facility] SARS-COV-2 COVID-19 2021-07-23 Completed [facility] PFIZER VACCINE 00:00:00 [facility] SARS-COV-2 COVID-19 2021-07-23 Completed [facility] PFIZER VACCINE 00:00:00 [facility] SARS-COV-2 COVID-19 2021-07-23 Completed [facility] PFIZER VACCINE 00:00:00 [facility] SARS-COV-2 COVID-19 2021-07-23 Completed [facility] PFIZER VACCINE 00:00:00 [facility] SARS-COV-2 COVID-19 2021-07-23 Completed [facility] PFIZER VACCINE 00:00:00 [facility] SARS-COV-2 COVID-19 2021-07-23 Completed [facility] PFIZER VACCINE 00:00:00 [facility] SARS-COV-2 COVID-19 2021-07-23 Completed [facility] PFIZER VACCINE 00:00:00 [facility] SARS-COV-2 COVID-19 2021-07-23 Completed [facility] PFIZER VACCINE 00:00:00 [facility] SARS-COV-2 COVID-19 2021-07-23 Completed [facility] PFIZER VACCINE 00:00:00 [facility] SARS-COV-2 COVID-19 2021-07-23 Completed [facility] PFIZER VACCINE 00:00:00 [facility] SARS-COV-2 COVID-19 2021-07-23 Completed [facility] PFIZER VACCINE 00:00:00 [facility] SARS-COV-2 COVID-19 2021-07-23 Completed [facility] PFIZER VACCINE 00:00:00 [facility] SARS-COV-2 COVID-19 2021-07-23 Completed [facility] PFIZER VACCINE 00:00:00 [facility] SARS-COV-2 COVID-19 2021-07-23 Completed [facility] PFIZER VACCINE 00:00:00 [facility] SARS-COV-2 COVID-19 2021-07-23 Completed [facility] PFIZER VACCINE 00:00:00 [facility] SARS-COV-2 COVID-19 2021-07-23 Completed [facility] PFIZER VACCINE 00:00:00 [facility] SARS-COV-2 COVID-19 2021-07-23 Completed [facility] PFIZER VACCINE 00:00:00 [facility] SARS-COV-2 COVID-19 2021-07-23 Completed [facility] PFIZER VACCINE 00:00:00 [facility] SARS-COV-2 COVID-19 2021-07-23 Completed [facility] PFIZER VACCINE 00:00:00 [facility] SARS-COV-2 COVID-19 2021-07-23 Completed [facility] PFIZER VACCINE 00:00:00 [facility] SARS-COV-2 COVID-19 2021-07-23 Completed [facility] PFIZER VACCINE 00:00:00 [facility] SARS-COV-2 COVID-19 2021-07-23 Completed [facility] PFIZER VACCINE 00:00:00 [facility] SARS-COV-2 COVID-19 2021-07-23 Completed [facility] PFIZER VACCINE 00:00:00 [facility] SARS-COV-2 COVID-19 2021-07-23 Completed [facility] PFIZER VACCINE 00:00:00 [facility] SARS-COV-2 COVID-19 2021-07-23 Completed [facility] PFIZER VACCINE 00:00:00 [facility] SARS-COV-2 COVID-19 2021-07-23 Completed [facility] PFIZER VACCINE 00:00:00 [facility] SARS-COV-2 COVID-19 2021-07-23 Completed [facility] PFIZER VACCINE 00:00:00 [facility] SARS-COV-2 COVID-19 2021-07-23 Completed [facility] PFIZER VACCINE 00:00:00 [facility] SARS-COV-2 COVID-19 2021-07-23 Completed [facility] PFIZER VACCINE 00:00:00 [facility] SARS-COV-2 COVID-19 2021-07-23 Completed [facility] PFIZER VACCINE 00:00:00 [facility] SARS-COV-2 COVID-19 2021-07-23 Completed [facility] PFIZER VACCINE 00:00:00 [facility] SARS-COV-2 COVID-19 2021-07-23 Completed [facility] PFIZER VACCINE 00:00:00 [facility] SARS-COV-2 COVID-19 2021-07-23 Completed [facility] PFIZER VACCINE 00:00:00 [facility] SARS-COV-2 COVID-19 2021-07-23 Completed [facility] PFIZER VACCINE 00:00:00 [facility] SARS-COV-2 COVID-19 2021-07-23 Completed [facility] PFIZER VACCINE 00:00:00 [facility] SARS-COV-2 COVID-19 2021-07-23 Completed [facility] PFIZER VACCINE 00:00:00 [facility] SARS-COV-2 COVID-19 2021-07-23 Completed [facility] PFIZER VACCINE 00:00:00 [facility] SARS-COV-2 COVID-19 2021-07-23 Completed [facility] PFIZER VACCINE 00:00:00 [facility] SARS-COV-2 COVID-19 2021-07-23 Completed [facility] PFIZER VACCINE 00:00:00 [facility] SARS-COV-2 COVID-19 2021-07-23 Completed [facility] PFIZER VACCINE 00:00:00 [facility] SARS-COV-2 COVID-19 2021-07-23 Completed [facility] PFIZER VACCINE 00:00:00 [facility] SARS-COV-2 COVID-19 2021-07-23 Completed [facility] PFIZER VACCINE 00:00:00 [facility] SARS-COV-2 COVID-19 2021-07-23 Completed [facility] PFIZER VACCINE 00:00:00 [facility] SARS-COV-2 COVID-19 2021-07-23 Completed [facility] PFIZER VACCINE 00:00:00 [facility] SARS-COV-2 COVID-19 2021-07-23 Completed [facility] PFIZER VACCINE 00:00:00 [facility] SARS-COV-2 COVID-19 2021-07-23 Completed [facility] PFIZER VACCINE 00:00:00 [facility] SARS-COV-2 COVID-19 2021-07-23 Completed [facility] PFIZER VACCINE 00:00:00 [facility] SARS-COV-2 COVID-19 2021-07-23 Completed [facility] PFIZER VACCINE 00:00:00 [facility] SARS-COV-2 COVID-19 2021-07-23 Completed [facility] PFIZER VACCINE 00:00:00 [facility] SARS-COV-2 COVID-19 2021-07-23 Completed [facility] PFIZER VACCINE 00:00:00 [facility] SARS-COV-2 COVID-19 2021-07-23 Completed [facility] PFIZER VACCINE 00:00:00 [facility] SARS-COV-2 COVID-19 2021-07-23 Completed [facility] PFIZER VACCINE 00:00:00 [facility] SARS-COV-2 COVID-19 2021-07-23 Completed [facility] PFIZER VACCINE 00:00:00 [facility] SARS-COV-2 COVID-19 2021-07-23 Completed [facility] PFIZER VACCINE 00:00:00 [facility] SARS-COV-2 COVID-19 2021-07-23 Completed [facility] PFIZER VACCINE 00:00:00 [facility] Influenza Virus 2021-05-27 Completed [facility] Vaccine (3+ yrs) 00:00:00 [facility] Influenza Virus 2021-05-27 Completed [facility] Vaccine (3+ yrs) 00:00:00 [facility] Influenza Virus 2021-05-27 Completed [facility] Vaccine (3+ yrs) 00:00:00 [facility] Influenza Virus 2021-05-27 Completed [facility] Vaccine (3+ yrs) 00:00:00 [facility] Influenza Virus 2021-05-27 Completed [facility] Vaccine (3+ yrs) 00:00:00 [facility] Influenza Virus 2021-05-27 Completed [facility] Vaccine (3+ yrs) 00:00:00 [facility] Influenza Virus 2021-05-27 Completed [facility] Vaccine (3+ yrs) 00:00:00 [facility] Influenza Virus 2021-05-27 Completed [facility] Vaccine (3+ yrs) 00:00:00 [facility] Influenza Virus 2021-05-27 Completed [facility] Vaccine (3+ yrs) 00[facility]00:00 [facility] Influenza Virus 2021-05-27 Completed [facility] Vaccine (3+ yrs) 00:00:00 [facility] Influenza Virus 2021-05-27 Completed [facility] Vaccine (3+ yrs) 00:00:00 [facility] Influenza Virus 2021-05-27 Completed [facility] Vaccine (3+ yrs) 00:00:00 [facility] Influenza Virus 2021-05-27 Completed [facility] Vaccine (3+ yrs) 00:00:00 [facility] Influenza Virus 2021-05-27 Completed [facility] Vaccine (3+ yrs) 00:00:00 [facility] Influenza Virus 2021-05-27 Completed [facility] Vaccine (3+ yrs) 00:00:00 [facility] Influenza Virus 2021-05-27 Completed [facility] Vaccine (3+ yrs) 00:00:00 [facility] Influenza Virus 2021-05-27 Completed [facility] Vaccine (3+ yrs) 00:00:00 [facility] Influenza Virus 2021-05-27 Completed [facility] Vaccine (3+ yrs) 00:00:00 [facility] Influenza Virus 2021-05-27 Completed [facility] Vaccine (3+ yrs) 00:00:00 [facility] Influenza Virus 2021-05-27 Completed [facility] Vaccine (3+ yrs) 00:00:00 [facility] Influenza Virus 2021-05-27 Completed [facility] Vaccine (3+ yrs) 00:00:00 [facility] Influenza Virus 2021-05-27 Completed [facility] Vaccine (3+ yrs) 00:00:00 [facility] Influenza Virus 2021-05-27 Completed [facility] Vaccine (3+ yrs) 00:00:00 [facility] Influenza Virus 2021-05-27 Completed [facility] Vaccine (3+ yrs) 00:00:00 [facility] Influenza Virus 2021-05-27 Completed [facility] Vaccine (3+ yrs) 00:00:00 [facility] Influenza Virus 2021-05-27 Completed [facility] Vaccine (3+ yrs) 00:00:00 [facility] Influenza Virus 2021-05-27 Completed [facility] Vaccine (3+ yrs) 00:00:00 [facility] Influenza Virus 2021-05-27 Completed [facility] Vaccine (3+ yrs) 00:00:00 [facility] Influenza Virus 2021-05-27 Completed [facility] Vaccine (3+ yrs) 00:00:00 [facility] Influenza Virus 2021-05-27 Completed [facility] Vaccine (3+ yrs) 00:00:00 [facility] Influenza Virus 2021-05-27 Completed [facility] Vaccine (3+ yrs) 00:00:00 [facility] Influenza Virus 2021-05-27 Completed [facility] Vaccine (3+ yrs) 00:00:00 [facility] Influenza Virus 2021-05-27 Completed [facility] Vaccine (3+ yrs) 00:00:00 [facility] Influenza Virus 2021-05-27 Completed [facility] Vaccine (3+ yrs) 00:00:00 [facility] Influenza Virus 2021-05-27 Completed [facility] Vaccine (3+ yrs) 00:00:00 [facility] Influenza Virus 2021-05-27 Completed [facility] Vaccine (3+ yrs) 00:00:00 [facility] Influenza Virus 2021-05-27 Completed [facility] Vaccine (3+ yrs) 00:00:00 [facility] Influenza Virus 2021-05-27 Completed [facility] Vaccine (3+ yrs) 00:00:00 [facility] Influenza Virus 2021-05-27 Completed [facility] Vaccine (3+ yrs) 00:00:00 [facility] Influenza Virus 2021-05-27 Completed [facility] Vaccine (3+ yrs) 00:00:00 [facility] Influenza Virus 2021-05-27 Completed [facility] Vaccine (3+ yrs) 00:00:00 [facility] Influenza Virus 2021-05-27 Completed [facility] Vaccine (3+ yrs) 00:00:00 [facility] Influenza Virus 2021-05-27 Completed [facility] Vaccine (3+ yrs) 00:00:00 [facility] Influenza Virus 2021-05-27 Completed [facility] Vaccine (3+ yrs) 00:00:00 [facility] Influenza Virus 2021-05-27 Completed [facility] Vaccine (3+ yrs) 00:00:00 [facility] Influenza Virus 2021-05-27 Completed [facility] Vaccine (3+ yrs) 00:00:00 [facility] Influenza Virus 2021-05-27 Completed [facility] Vaccine (3+ yrs) 00:00:00 [facility] Influenza Virus 2021-05-27 Completed [facility] Vaccine (3+ yrs) 00:00:00 [facility] Influenza Virus 2021-05-27 Completed [facility] Vaccine (3+ yrs) 00:00:00 [facility] Influenza Virus 2021-05-27 Completed [facility] Vaccine (3+ yrs) 00:00:00 [facility] Influenza Virus 2021-05-27 Completed [facility] Vaccine (3+ yrs) 00:00:00 [facility] Influenza Virus 2021-05-27 Completed [facility] Vaccine (3+ yrs) 00:00:00 [facility] Influenza Virus 2021-05-27 Completed [facility] Vaccine (3+ yrs) 00:00:00 [facility] Influenza Virus 2021-05-27 Completed [facility] Vaccine (3+ yrs) 00:00:00 [facility] Influenza Virus 2021-05-27 Completed [facility] Vaccine (3+ yrs) 00:00:00 [facility] Influenza Virus 2021-05-27 Completed [facility] Vaccine (3+ yrs) 00:00:00 [facility] Influenza Virus 2021-05-27 Completed [facility] Vaccine (3+ yrs) 00:00:00 [facility] Influenza Virus 2021-05-27 Completed [facility] Vaccine (3+ yrs) 00:00:00 [facility] Influenza Virus 2021-05-27 Completed [facility] Vaccine (3+ yrs) 00:00:00 [facility] Influenza Virus 2021-05-27 Completed [facility] Vaccine (3+ yrs) 00:00:00 [facility] Influenza Virus 2021-05-27 Completed [facility] Vaccine (3+ yrs) 00:00:00 [facility] Influenza Virus 2021-05-27 Completed [facility] Vaccine (3+ yrs) 00:00:00 [facility] Influenza Virus 2021-05-27 Completed [facility] Vaccine (3+ yrs) 00:00:00 [facility] Influenza Virus 2021-05-27 Completed [facility] Vaccine (3+ yrs) 00:00:00 [facility] Influenza Virus 2021-05-27 Completed [facility] Vaccine (3+ yrs) 00:00:00 [facility] Influenza Virus 2021-05-27 Completed [facility] Vaccine (3+ yrs) 00:00:00 [facility] Influenza Virus 2021-05-27 Completed [facility] Vaccine (3+ yrs) 00:00:00 [facility] Influenza Virus 2021-05-27 Completed [facility] Vaccine (3+ yrs) 00:00:00 [facility] Influenza Virus 2021-05-27 Completed [facility] Vaccine (3+ yrs) 00:00:00 [facility] Influenza Virus 2021-05-27 Completed [facility] Vaccine (3+ yrs) 00:00:00 [facility] Influenza Virus 2021-05-27 Completed [facility] Vaccine (3+ yrs) 00:00:00 [facility] Influenza Virus 2021-05-27 Completed [facility] Vaccine (3+ yrs) 00:00:00 [facility] Influenza Virus 2021-05-27 Completed [facility] Vaccine (3+ yrs) 00:00:00 [facility] Influenza Virus 2021-05-27 Completed [facility] Vaccine (3+ yrs) 00:00:00 [facility] Influenza Virus 2021-05-27 Completed [facility] Vaccine (3+ yrs) 00:00:00 [facility] Influenza Virus 2021-05-27 Completed [facility] Vaccine (3+ yrs) 00:00:00 [facility] Influenza Virus 2021-05-27 Completed [facility] Vaccine (3+ yrs) 00:00:00 [facility] Influenza Virus 2021-05-27 Completed [facility] Vaccine (3+ yrs) 00:00:00 [facility] Influenza Virus 2021-05-27 Completed [facility] Vaccine (3+ yrs) 00:00:00 [facility] Influenza Virus 2021-05-27 Completed [facility] Vaccine (3+ yrs) 00:00:00 [facility] Influenza Virus 2021-05-27 Completed [facility] Vaccine (3+ yrs) 00:00:00 [facility] Influenza Virus 2021-05-27 Completed [facility] Vaccine (3+ yrs) 00:00:00 [facility] Influenza Virus 2021-05-27 Completed [facility] Vaccine (3+ yrs) 00:00:00 [facility] Influenza Virus 2021-05-27 Completed [facility] Vaccine (3+ yrs) 00:00:00 [facility] Influenza Virus 2021-05-27 Completed [facility] Vaccine (3+ yrs) 00:00:00 [facility] Influenza Virus 2021-05-27 Completed [facility] Vaccine (3+ yrs) 00:00:00 [facility] Influenza Virus 2021-05-27 Completed [facility] Vaccine (3+ yrs) 00:00:00 [facility] Influenza Virus 2021-05-27 Completed [facility] Vaccine (3+ yrs) 00:00:00 [facility] Influenza Virus 2021-05-27 Completed [facility] Vaccine (3+ yrs) 00:00:00 [facility] Influenza Virus 2021-05-27 Completed [facility] Vaccine (3+ yrs) 00:00:00 [facility] Influenza Virus 2021-05-27 Completed [facility] Vaccine (3+ yrs) 00:00:00 [facility] Influenza Virus 2021-05-27 Completed [facility] Vaccine (3+ yrs) 00:00:00 [facility] Influenza Virus 2021-05-27 Completed [facility] Vaccine (3+ yrs) 00:00:00 [facility] Influenza Virus 2021-05-27 Completed [facility] Vaccine (3+ yrs) 00:00:00 [facility] Influenza Virus 2021-05-27 Completed [facility] Vaccine (3+ yrs) 00:00:00 [facility] Influenza Virus 2021-05-27 Completed [facility] Vaccine (3+ yrs) 00:00:00 [facility] Influenza Virus 2021-05-27 Completed [facility] Vaccine (3+ yrs) 00:00:00 [facility] Influenza Virus 2021-05-27 Completed [facility] Vaccine (3+ yrs) 00:00:00 [facility] Influenza Virus 2021-05-27 Completed [facility] Vaccine (3+ yrs) 00:00:00 [facility] Influenza Virus 2021-05-27 Completed [facility] Vaccine (3+ yrs) 00:00:00 [facility] Influenza Virus 2021-05-27 Completed [facility] Vaccine (3+ yrs) 00:00:00 [facility] Influenza Virus 2021-05-27 Completed [facility] Vaccine (3+ yrs) 00:00:00 [facility] Influenza Virus 2021-05-27 Completed [facility] Vaccine (3+ yrs) 00:00:00 [facility] Influenza Virus 2021-05-27 Completed [facility] Vaccine (3+ yrs) 00:00:00 [facility] Influenza Virus 2021-05-27 Completed [facility] Vaccine (3+ yrs) 00:00:00 [facility] Influenza Virus 2021-05-27 Completed [facility] Vaccine (3+ yrs) 00:00:00 [facility] Influenza Virus 2021-05-27 Completed [facility] Vaccine (3+ yrs) 00:00:00 [facility] Influenza Virus 2021-05-27 Completed [facility] Vaccine (3+ yrs) 00:00:00 [facility] Influenza Virus 2021-05-27 Completed [facility] Vaccine (3+ yrs) 00:00:00 [facility] Influenza Virus 2021-05-27 Completed [facility] Vaccine (3+ yrs) 00:00:00 [facility] Influenza Virus 2021-05-27 Completed [facility] Vaccine (3+ yrs) 00:00:00 [facility] Influenza Virus 2021-05-27 Completed [facility] Vaccine (3+ yrs) 00:00:00 [facility] Influenza Virus 2021-05-27 Completed [facility] Vaccine (3+ yrs) 00:00:00 [facility] Influenza Virus 2021-05-27 Completed [facility] Vaccine (3+ yrs) 00:00:00 [facility] Influenza Virus 2021-05-27 Completed [facility] Vaccine (3+ yrs) 00:00:00 [facility] Influenza Virus 2021-05-27 Completed [facility] Vaccine (3+ yrs) 00:00:00 [facility] Influenza Virus 2021-05-27 Completed [facility] Vaccine (3+ yrs) 00:00:00 [facility] Influenza Virus 2021-05-27 Completed [facility] Vaccine (3+ yrs) 00:00:00 [facility] Influenza Virus 2021-05-27 Completed [facility] Vaccine (3+ yrs) 00:00:00 [facility] SARS-COV-2 COVID-19 2020-12-13 Completed [facility] PFIZER VACCINE 00:00:00 [facility] SARS-COV-2 COVID-19 2020-12-13 Completed [facility] PFIZER VACCINE 00:00:00 [facility] SARS-COV-2 COVID-19 2020-12-13 Completed [facility] PFIZER VACCINE 00:00:00 [facility] SARS-COV-2 COVID-19 2020-12-13 Completed [facility] PFIZER VACCINE 00:00:00 [facility] SARS-COV-2 COVID-19 2020-12-13 Completed [facility] PFIZER VACCINE 00:00:00 [facility] SARS-COV-2 COVID-19 2020-12-13 Completed [facility] PFIZER VACCINE 00:00:00 [facility] SARS-COV-2 COVID-19 2020-12-13 Completed [facility] PFIZER VACCINE 00:00:00 [facility] SARS-COV-2 COVID-19 2020-12-13 Completed [facility] PFIZER VACCINE 00:00:00 [facility] SARS-COV-2 COVID-19 2020-12-13 Completed [facility] PFIZER VACCINE 00:00:00 [facility] SARS-COV-2 COVID-19 2020-12-13 Completed [facility] PFIZER VACCINE 00:00:00 [facility] SARS-COV-2 COVID-19 2020-12-13 Completed [facility] PFIZER VACCINE 00:00:00 [facility] SARS-COV-2 COVID-19 2020-12-13 Completed [facility] PFIZER VACCINE 00:00:00 [facility] SARS-COV-2 COVID-19 2020-12-13 Completed [facility] PFIZER VACCINE 00:00:00 [facility] SARS-COV-2 COVID-19 2020-12-13 Completed [facility] PFIZER VACCINE 00:00:00 [facility] SARS-COV-2 COVID-19 2020-12-13 Completed [facility] PFIZER VACCINE 00:00:00 [facility] SARS-COV-2 COVID-19 2020-12-13 Completed [facility] PFIZER VACCINE 00:00:00 [facility] SARS-COV-2 COVID-19 2020-12-13 Completed [facility] PFIZER VACCINE 00:00:00 [facility] SARS-COV-2 COVID-19 2020-12-13 Completed [facility] PFIZER VACCINE 00:00:00 [facility] SARS-COV-2 COVID-19 2020-12-13 Completed [facility] PFIZER VACCINE 00:00:00 [facility] SARS-COV-2 COVID-19 2020-12-13 Completed [facility] PFIZER VACCINE 00:00:00 [facility] SARS-COV-2 COVID-19 2020-12-13 Completed [facility] PFIZER VACCINE 00:00:00 [facility] SARS-COV-2 COVID-19 2020-12-13 Completed [facility] PFIZER VACCINE 00:00:00 [facility] SARS-COV-2 COVID-19 2020-12-13 Completed [facility] PFIZER VACCINE 00:00:00 [facility] SARS-COV-2 COVID-19 2020-12-13 Completed [facility] PFIZER VACCINE 00:00:00 [facility] SARS-COV-2 COVID-19 2020-12-13 Completed [facility] PFIZER VACCINE 00:00:00 [facility] SARS-COV-2 COVID-19 2020-12-13 Completed [facility] PFIZER VACCINE 00:00:00 [facility] SARS-COV-2 COVID-19 2020-12-13 Completed [facility] PFIZER VACCINE 00:00:00 [facility] SARS-COV-2 COVID-19 2020-12-13 Completed [facility] PFIZER VACCINE 00:00:00 [facility] SARS-COV-2 COVID-19 2020-12-13 Completed [facility] PFIZER VACCINE 00:00:00 [facility] SARS-COV-2 COVID-19 2020-12-13 Completed [facility] PFIZER VACCINE 00:00:00 [facility] SARS-COV-2 COVID-19 2020-12-13 Completed [facility] PFIZER VACCINE 00:00:00 [facility] SARS-COV-2 COVID-19 2020-12-13 Completed [facility] PFIZER VACCINE 00:00:00 [facility] SARS-COV-2 COVID-19 2020-12-13 Completed [facility] PFIZER VACCINE 00:00:00 [facility] SARS-COV-2 COVID-19 2020-12-13 Completed [facility] PFIZER VACCINE 00:00:00 [facility] SARS-COV-2 COVID-19 2020-12-13 Completed [facility] PFIZER VACCINE 00:00:00 [facility] SARS-COV-2 COVID-19 2020-12-13 Completed [facility] PFIZER VACCINE 00:00:00 [facility] SARS-COV-2 COVID-19 2020-12-13 Completed [facility] PFIZER VACCINE 00:00:00 [facility] SARS-COV-2 COVID-19 2020-12-13 Completed [facility] PFIZER VACCINE 00:00:00 [facility] SARS-COV-2 COVID-19 2020-12-13 Completed [facility] PFIZER VACCINE 00:00:00 [facility] SARS-COV-2 COVID-19 2020-12-13 Completed [facility] PFIZER VACCINE 00:00:00 [facility] SARS-COV-2 COVID-19 2020-12-13 Completed [facility] PFIZER VACCINE 00:00:00 [facility] SARS-COV-2 COVID-19 2020-12-13 Completed [facility] PFIZER VACCINE 00:00:00 [facility] SARS-COV-2 COVID-19 2020-12-13 Completed [facility] PFIZER VACCINE 00:00:00 [facility] SARS-COV-2 COVID-19 2020-12-13 Completed [facility] PFIZER VACCINE 00:00:00 [facility] SARS-COV-2 COVID-19 2020-12-13 Completed [facility] PFIZER VACCINE 00:00:00 [facility] SARS-COV-2 COVID-19 2020-12-13 Completed [facility] PFIZER VACCINE 00:00:00 [facility] SARS-COV-2 COVID-19 2020-12-13 Completed [facility] PFIZER VACCINE 00:00:00 [facility] SARS-COV-2 COVID-19 2020-12-13 Completed [facility] PFIZER VACCINE 00:00:00 [facility] SARS-COV-2 COVID-19 2020-12-13 Completed [facility] PFIZER VACCINE 00:00:00 [facility] SARS-COV-2 COVID-19 2020-12-13 Completed [facility] PFIZER VACCINE 00:00:00 [facility] SARS-COV-2 COVID-19 2020-12-13 Completed [facility] PFIZER VACCINE 00:00:00 [facility] SARS-COV-2 COVID-19 2020-12-13 Completed [facility] PFIZER VACCINE 00:00:00 [facility] SARS-COV-2 COVID-19 2020-12-13 Completed [facility] PFIZER VACCINE 00:00:00 [facility] SARS-COV-2 COVID-19 2020-12-13 Completed [facility] PFIZER VACCINE 00:00:00 [facility] SARS-COV-2 COVID-19 2020-12-13 Completed [facility] PFIZER VACCINE 00:00:00 [facility] SARS-COV-2 COVID-19 2020-12-13 Completed [facility] PFIZER VACCINE 00:00:00 [facility] SARS-COV-2 COVID-19 2020-12-13 Completed [facility] PFIZER VACCINE 00:00:00 [facility] SARS-COV-2 COVID-19 2020-12-13 Completed [facility] PFIZER VACCINE 00:00:00 [facility] SARS-COV-2 COVID-19 2020-12-13 Completed [facility] PFIZER VACCINE 00:00:00 [facility] SARS-COV-2 COVID-19 2020-12-13 Completed [facility] PFIZER VACCINE 00:00:00 [facility] SARS-COV-2 COVID-19 2020-12-13 Completed [facility] PFIZER VACCINE 00:00:00 [facility] SARS-COV-2 COVID-19 2020-12-13 Completed [facility] PFIZER VACCINE 00:00:00 [facility] SARS-COV-2 COVID-19 2020-12-13 Completed [facility] PFIZER VACCINE 00:00:00 [facility] SARS-COV-2 COVID-19 2020-12-13 Completed [facility] PFIZER VACCINE 00:00:00 [facility] SARS-COV-2 COVID-19 2020-12-13 Completed [facility] PFIZER VACCINE 00:00:00 [facility] SARS-COV-2 COVID-19 2020-12-13 Completed [facility] PFIZER VACCINE 00:00:00 [facility] SARS-COV-2 COVID-19 2020-12-13 Completed [facility] PFIZER VACCINE 00:00:00 [facility] SARS-COV-2 COVID-19 2020-12-13 Completed [facility] PFIZER VACCINE 00:00:00 [facility] SARS-COV-2 COVID-19 2020-12-13 Completed [facility] PFIZER VACCINE 00:00:00 [facility] SARS-COV-2 COVID-19 2020-12-13 Completed [facility] PFIZER VACCINE 00:00:00 [facility] SARS-COV-2 COVID-19 2020-12-13 Completed [facility] PFIZER VACCINE 00:00:00 [facility] SARS-COV-2 COVID-19 2020-12-13 Completed [facility] PFIZER VACCINE 00:00:00 [facility] SARS-COV-2 COVID-19 2020-12-13 Completed [facility] PFIZER VACCINE 00:00:00 [facility] SARS-COV-2 COVID-19 2020-12-13 Completed [facility] PFIZER VACCINE 00:00:00 [facility] SARS-COV-2 COVID-19 2020-12-13 Completed [facility] PFIZER VACCINE 00:00:00 [facility] SARS-COV-2 COVID-19 2020-12-13 Completed [facility] PFIZER VACCINE 00:00:00 [facility] SARS-COV-2 COVID-19 2020-12-13 Completed [facility] PFIZER VACCINE 00:00:00 [facility] SARS-COV-2 COVID-19 2020-12-13 Completed [facility] PFIZER VACCINE 00:00:00 [facility] SARS-COV-2 COVID-19 2020-12-13 Completed [facility] PFIZER VACCINE 00:00:00 [facility] SARS-COV-2 COVID-19 2020-12-13 Completed [facility] PFIZER VACCINE 00:00:00 [facility] SARS-COV-2 COVID-19 2020-12-13 Completed [facility] PFIZER VACCINE 00:00:00 [facility] SARS-COV-2 COVID-19 2020-12-13 Completed [facility] PFIZER VACCINE 00:00:00 [facility] SARS-COV-2 COVID-19 2020-12-13 Completed [facility] PFIZER VACCINE 00:00:00 [facility] SARS-COV-2 COVID-19 2020-12-13 Completed [facility] PFIZER VACCINE 00:00:00 [facility] SARS-COV-2 COVID-19 2020-12-13 Completed [facility] PFIZER VACCINE 00:00:00 [facility] SARS-COV-2 COVID-19 2020-12-13 Completed [facility] PFIZER VACCINE 00:00:00 [facility] SARS-COV-2 COVID-19 2020-12-13 Completed [facility] PFIZER VACCINE 00:00:00 [facility] SARS-COV-2 COVID-19 2020-12-13 Completed [facility] PFIZER VACCINE 00:00:00 [facility] SARS-COV-2 COVID-19 2020-12-13 Completed [facility] PFIZER VACCINE 00:00:00 [facility] SARS-COV-2 COVID-19 2020-12-13 Completed [facility] PFIZER VACCINE 00:00:00 [facility] SARS-COV-2 COVID-19 2020-12-13 Completed [facility] PFIZER VACCINE 00:00:00 [facility] SARS-COV-2 COVID-19 2020-12-13 Completed [facility] PFIZER VACCINE 00:00:00 [facility] SARS-COV-2 COVID-19 2020-12-13 Completed [facility] PFIZER VACCINE 00:00:00 [facility] SARS-COV-2 COVID-19 2020-12-13 Completed [facility] PFIZER VACCINE 00:00:00 [facility] SARS-COV-2 COVID-19 2020-12-13 Completed [facility] PFIZER VACCINE 00:00:00 [facility] SARS-COV-2 COVID-19 2020-12-13 Completed [facility] PFIZER VACCINE 00:00:00 [facility] SARS-COV-2 COVID-19 2020-12-13 Completed [facility] PFIZER VACCINE 00:00:00 [facility] SARS-COV-2 COVID-19 2020-12-13 Completed [facility] PFIZER VACCINE 00:00:00 [facility] SARS-COV-2 COVID-19 2020-12-13 Completed [facility] PFIZER VACCINE 00:00:00 [facility] SARS-COV-2 COVID-19 2020-12-13 Completed [facility] PFIZER VACCINE 00:00:00 [facility] SARS-COV-2 COVID-19 2020-12-13 Completed [facility] PFIZER VACCINE 00:00:00 [facility] SARS-COV-2 COVID-19 2020-12-13 Completed [facility] PFIZER VACCINE 00:00:00 [facility] SARS-COV-2 COVID-19 2020-12-13 Completed [facility] PFIZER VACCINE 00:00:00 [facility] SARS-COV-2 COVID-19 2020-12-13 Completed [facility] PFIZER VACCINE 00:00:00 [facility] SARS-COV-2 COVID-19 2020-12-13 Completed [facility] PFIZER VACCINE 00:00:00 [facility] SARS-COV-2 COVID-19 2020-12-13 Completed [facility] PFIZER VACCINE 00:00:00 [facility] SARS-COV-2 COVID-19 2020-12-13 Completed [facility] PFIZER VACCINE 00:00:00 [facility] SARS-COV-2 COVID-19 2020-12-13 Completed [facility] PFIZER VACCINE 00:00:00 [facility] SARS-COV-2 COVID-19 2020-12-13 Completed [facility] PFIZER VACCINE 00:00:00 [facility] SARS-COV-2 COVID-19 2020-12-13 Completed [facility] PFIZER VACCINE 00:00:00 [facility] SARS-COV-2 COVID-19 2020-12-13 Completed [facility] PFIZER VACCINE 00:00:00 [facility] SARS-COV-2 COVID-19 2020-12-13 Completed [facility] PFIZER VACCINE 00:00:00 [facility] SARS-COV-2 COVID-19 2020-12-13 Completed [facility] PFIZER VACCINE 00:00:00 [facility] SARS-COV-2 COVID-19 2020-12-13 Completed [facility] PFIZER VACCINE 00:00:00 [facility] SARS-COV-2 COVID-19 2020-12-13 Completed [facility] PFIZER VACCINE 00:00:00 [facility] SARS-COV-2 COVID-19 2020-12-13 Completed [facility] PFIZER VACCINE 00:00:00 [facility] SARS-COV-2 COVID-19 2020-12-13 Completed [facility] PFIZER VACCINE 00:00:00 [facility] SARS-COV-2 COVID-19 2020-12-13 Completed [facility] PFIZER VACCINE 00:00:00 [facility] SARS-COV-2 COVID-19 2020-12-13 Completed [facility] PFIZER VACCINE 00:00:00 [facility] SARS-COV-2 COVID-19 2020-11-22 Completed [facility] PFIZER VACCINE 00:00:00 [facility] SARS-COV-2 COVID-19 2020-11-22 Completed [facility] PFIZER VACCINE 00:00:00 [facility] SARS-COV-2 COVID-19 2020-11-22 Completed [facility] PFIZER VACCINE 00:00:00 [facility] SARS-COV-2 COVID-19 2020-11-22 Completed [facility] PFIZER VACCINE 00:00:00 [facility] SARS-COV-2 COVID-19 2020-11-22 Completed [facility] PFIZER VACCINE 00:00:00 [facility] SARS-COV-2 COVID-19 2020-11-22 Completed [facility] PFIZER VACCINE 00:00:00 [facility] SARS-COV-2 COVID-19 2020-11-22 Completed [facility] PFIZER VACCINE 00:00:00 [facility] SARS-COV-2 COVID-19 2020-11-22 Completed [facility] PFIZER VACCINE 00:00:00 [facility] SARS-COV-2 COVID-19 2020-11-22 Completed [facility] PFIZER VACCINE 00:00:00 [facility] SARS-COV-2 COVID-19 2020-11-22 Completed [facility] PFIZER VACCINE 00:00:00 [facility] SARS-COV-2 COVID-19 2020-11-22 Completed [facility] PFIZER VACCINE 00:00:00 [facility] SARS-COV-2 COVID-19 2020-11-22 Completed [facility] PFIZER VACCINE 00:00:00 [facility] SARS-COV-2 COVID-19 2020-11-22 Completed [facility] PFIZER VACCINE 00:00:00 [facility] SARS-COV-2 COVID-19 2020-11-22 Completed [facility] PFIZER VACCINE 00:00:00 [facility] SARS-COV-2 COVID-19 2020-11-22 Completed [facility] PFIZER VACCINE 00:00:00 [facility] SARS-COV-2 COVID-19 2020-11-22 Completed [facility] PFIZER VACCINE 00:00:00 [facility] SARS-COV-2 COVID-19 2020-11-22 Completed [facility] PFIZER VACCINE 00:00:00 [facility] SARS-COV-2 COVID-19 2020-11-22 Completed [facility] PFIZER VACCINE 00:00:00 [facility] SARS-COV-2 COVID-19 2020-11-22 Completed [facility] PFIZER VACCINE 00:00:00 [facility] SARS-COV-2 COVID-19 2020-11-22 Completed [facility] PFIZER VACCINE 00:00:00 [facility] SARS-COV-2 COVID-19 2020-11-22 Completed [facility] PFIZER VACCINE 00:00:00 [facility] SARS-COV-2 COVID-19 2020-11-22 Completed [facility] PFIZER VACCINE 00:00:00 [facility] SARS-COV-2 COVID-19 2020-11-22 Completed [facility] PFIZER VACCINE 00:00:00 [facility] SARS-COV-2 COVID-19 2020-11-22 Completed [facility] PFIZER VACCINE 00:00:00 [facility] SARS-COV-2 COVID-19 2020-11-22 Completed [facility] PFIZER VACCINE 00:00:00 [facility] SARS-COV-2 COVID-19 2020-11-22 Completed [facility] PFIZER VACCINE 00:00:00 [facility] SARS-COV-2 COVID-19 2020-11-22 Completed [facility] PFIZER VACCINE 00:00:00 [facility] SARS-COV-2 COVID-19 2020-11-22 Completed [facility] PFIZER VACCINE 00:00:00 [facility] SARS-COV-2 COVID-19 2020-11-22 Completed [facility] PFIZER VACCINE 00:00:00 [facility] SARS-COV-2 COVID-19 2020-11-22 Completed [facility] PFIZER VACCINE 00:00:00 [facility] SARS-COV-2 COVID-19 2020-11-22 Completed [facility] PFIZER VACCINE 00:00:00 [facility] SARS-COV-2 COVID-19 2020-11-22 Completed [facility] PFIZER VACCINE 00:00:00 [facility] SARS-COV-2 COVID-19 2020-11-22 Completed [facility] PFIZER VACCINE 00:00:00 [facility] SARS-COV-2 COVID-19 2020-11-22 Completed [facility] PFIZER VACCINE 00:00:00 [facility] SARS-COV-2 COVID-19 2020-11-22 Completed [facility] PFIZER VACCINE 00:00:00 [facility] SARS-COV-2 COVID-19 2020-11-22 Completed [facility] PFIZER VACCINE 00:00:00 [facility] SARS-COV-2 COVID-19 2020-11-22 Completed [facility] PFIZER VACCINE 00:00:00 [facility] SARS-COV-2 COVID-19 2020-11-22 Completed [facility] PFIZER VACCINE 00:00:00 [facility] SARS-COV-2 COVID-19 2020-11-22 Completed [facility] PFIZER VACCINE 00:00:00 [facility] SARS-COV-2 COVID-19 2020-11-22 Completed [facility] PFIZER VACCINE 00:00:00 [facility] SARS-COV-2 COVID-19 2020-11-22 Completed [facility] PFIZER VACCINE 00:00:00 [facility] SARS-COV-2 COVID-19 2020-11-22 Completed [facility] PFIZER VACCINE 00:00:00 [facility] SARS-COV-2 COVID-19 2020-11-22 Completed [facility] PFIZER VACCINE 00:00:00 [facility] SARS-COV-2 COVID-19 2020-11-22 Completed [facility] PFIZER VACCINE 00:00:00 [facility] SARS-COV-2 COVID-19 2020-11-22 Completed [facility] PFIZER VACCINE 00:00:00 [facility] SARS-COV-2 COVID-19 2020-11-22 Completed [facility] PFIZER VACCINE 00:00:00 [facility] SARS-COV-2 COVID-19 2020-11-22 Completed [facility] PFIZER VACCINE 00:00:00 [facility] SARS-COV-2 COVID-19 2020-11-22 Completed [facility] PFIZER VACCINE 00:00:00 [facility] SARS-COV-2 COVID-19 2020-11-22 Completed [facility] PFIZER VACCINE 00:00:00 [facility] SARS-COV-2 COVID-19 2020-11-22 Completed [facility] PFIZER VACCINE 00:00:00 [facility] SARS-COV-2 COVID-19 2020-11-22 Completed [facility] PFIZER VACCINE 00:00:00 [facility] SARS-COV-2 COVID-19 2020-11-22 Completed [facility] PFIZER VACCINE 00:00:00 [facility] SARS-COV-2 COVID-19 2020-11-22 Completed [facility] PFIZER VACCINE 00:00:00 [facility] SARS-COV-2 COVID-19 2020-11-22 Completed [facility] PFIZER VACCINE 00:00:00 [facility] SARS-COV-2 COVID-19 2020-11-22 Completed [facility] PFIZER VACCINE 00:00:00 [facility] SARS-COV-2 COVID-19 2020-11-22 Completed [facility] PFIZER VACCINE 00:00:00 [facility] SARS-COV-2 COVID-19 2020-11-22 Completed [facility] PFIZER VACCINE 00:00:00 [facility] SARS-COV-2 COVID-19 2020-11-22 Completed [facility] PFIZER VACCINE 00:00:00 [facility] SARS-COV-2 COVID-19 2020-11-22 Completed [facility] PFIZER VACCINE 00:00:00 [facility] SARS-COV-2 COVID-19 2020-11-22 Completed [facility] PFIZER VACCINE 00:00:00 [facility] SARS-COV-2 COVID-19 2020-11-22 Completed [facility] PFIZER VACCINE 00:00:00 [facility] SARS-COV-2 COVID-19 2020-11-22 Completed [facility] PFIZER VACCINE 00:00:00 [facility] SARS-COV-2 COVID-19 2020-11-22 Completed [facility] PFIZER VACCINE 00:00:00 [facility] SARS-COV-2 COVID-19 2020-11-22 Completed [facility] PFIZER VACCINE 00:00:00 [facility] SARS-COV-2 COVID-19 2020-11-22 Completed [facility] PFIZER VACCINE 00:00:00 [facility] SARS-COV-2 COVID-19 2020-11-22 Completed [facility] PFIZER VACCINE 00:00:00 [facility] SARS-COV-2 COVID-19 2020-11-22 Completed [facility] PFIZER VACCINE 00:00:00 [facility] SARS-COV-2 COVID-19 2020-11-22 Completed [facility] PFIZER VACCINE 00:00:00 [facility] SARS-COV-2 COVID-19 2020-11-22 Completed [facility] PFIZER VACCINE 00:00:00 [facility] SARS-COV-2 COVID-19 2020-11-22 Completed [facility] PFIZER VACCINE 00:00:00 [facility] SARS-COV-2 COVID-19 2020-11-22 Completed [facility] PFIZER VACCINE 00:00:00 [facility] SARS-COV-2 COVID-19 2020-11-22 Completed [facility] PFIZER VACCINE 00:00:00 [facility] SARS-COV-2 COVID-19 2020-11-22 Completed [facility] PFIZER VACCINE 00:00:00 [facility] SARS-COV-2 COVID-19 2020-11-22 Completed [facility] PFIZER VACCINE 00:00:00 [facility] SARS-COV-2 COVID-19 2020-11-22 Completed [facility] PFIZER VACCINE 00:00:00 [facility] SARS-COV-2 COVID-19 2020-11-22 Completed [facility] PFIZER VACCINE 00:00:00 [facility] SARS-COV-2 COVID-19 2020-11-22 Completed [facility] PFIZER VACCINE 00:00:00 [facility] SARS-COV-2 COVID-19 2020-11-22 Completed [facility] PFIZER VACCINE 00:00:00 [facility] SARS-COV-2 COVID-19 2020-11-22 Completed [facility] PFIZER VACCINE 00:00:00 [facility] SARS-COV-2 COVID-19 2020-11-22 Completed [facility] PFIZER VACCINE 00:00:00 [facility] SARS-COV-2 COVID-19 2020-11-22 Completed [facility] PFIZER VACCINE 00:00:00 [facility] SARS-COV-2 COVID-19 2020-11-22 Completed [facility] PFIZER VACCINE 00:00:00 [facility] SARS-COV-2 COVID-19 2020-11-22 Completed [facility] PFIZER VACCINE 00:00:00 [facility] SARS-COV-2 COVID-19 2020-11-22 Completed [facility] PFIZER VACCINE 00:00:00 [facility] SARS-COV-2 COVID-19 2020-11-22 Completed [facility] PFIZER VACCINE 00:00:00 [facility] SARS-COV-2 COVID-19 2020-11-22 Completed [facility] PFIZER VACCINE 00:00:00 [facility] SARS-COV-2 COVID-19 2020-11-22 Completed [facility] PFIZER VACCINE 00:00:00 [facility] SARS-COV-2 COVID-19 2020-11-22 Completed [facility] PFIZER VACCINE 00:00:00 [facility] SARS-COV-2 COVID-19 2020-11-22 Completed [facility] PFIZER VACCINE 00:00:00 [facility] SARS-COV-2 COVID-19 2020-11-22 Completed [facility] PFIZER VACCINE 00:00:00 [facility] SARS-COV-2 COVID-19 2020-11-22 Completed [facility] PFIZER VACCINE 00:00:00 [facility] SARS-COV-2 COVID-19 2020-11-22 Completed [facility] PFIZER VACCINE 00:00:00 [facility] SARS-COV-2 COVID-19 2020-11-22 Completed [facility] PFIZER VACCINE 00:00:00 [facility] SARS-COV-2 COVID-19 2020-11-22 Completed [facility] PFIZER VACCINE 00:00:00 [facility] SARS-COV-2 COVID-19 2020-11-22 Completed [facility] PFIZER VACCINE 00:00:00 [facility] SARS-COV-2 COVID-19 2020-11-22 Completed [facility] PFIZER VACCINE 00:00:00 [facility] SARS-COV-2 COVID-19 2020-11-22 Completed [facility] PFIZER VACCINE 00:00:00 [facility] SARS-COV-2 COVID-19 2020-11-22 Completed [facility] PFIZER VACCINE 00:00:00 [facility] SARS-COV-2 COVID-19 2020-11-22 Completed [facility] PFIZER VACCINE 00:00:00 [facility] SARS-COV-2 COVID-19 2020-11-22 Completed [facility] PFIZER VACCINE 00:00:00 [facility] SARS-COV-2 COVID-19 2020-11-22 Completed [facility] PFIZER VACCINE 00:00:00 [facility] SARS-COV-2 COVID-19 2020-11-22 Completed [facility] PFIZER VACCINE 00:00:00 [facility] SARS-COV-2 COVID-19 2020-11-22 Completed [facility] PFIZER VACCINE 00:00:00 [facility] SARS-COV-2 COVID-19 2020-11-22 Completed [facility] PFIZER VACCINE 00:00:00 [facility] SARS-COV-2 COVID-19 2020-11-22 Completed [facility] PFIZER VACCINE 00:00:00 [facility] SARS-COV-2 COVID-19 2020-11-22 Completed [facility] PFIZER VACCINE 00:00:00 [facility] SARS-COV-2 COVID-19 2020-11-22 Completed [facility] PFIZER VACCINE 00:00:00 [facility] SARS-COV-2 COVID-19 2020-11-22 Completed [facility] PFIZER VACCINE 00:00:00 [facility] SARS-COV-2 COVID-19 2020-11-22 Completed [facility] PFIZER VACCINE 00:00:00 [facility] SARS-COV-2 COVID-19 2020-11-22 Completed [facility] PFIZER VACCINE 00:00:00 [facility] SARS-COV-2 COVID-19 2020-11-22 Completed [facility] PFIZER VACCINE 00:00:00 [facility] SARS-COV-2 COVID-19 2020-11-22 Completed [facility] PFIZER VACCINE 00:00:00 [facility] SARS-COV-2 COVID-19 2020-11-22 Completed [facility] PFIZER VACCINE 00:00:00 [facility] SARS-COV-2 COVID-19 2020-11-22 Completed [facility] PFIZER VACCINE 00:00:00 [facility] SARS-COV-2 COVID-19 2020-11-22 Completed [facility] PFIZER VACCINE 00:00:00 [facility] SARS-COV-2 COVID-19 2020-11-22 Completed [facility] PFIZER VACCINE 00:00:00 [facility] SARS-COV-2 COVID-19 2020-11-22 Completed [facility] PFIZER VACCINE 00:00:00 [facility] SARS-COV-2 COVID-19 2020-11-22 Completed [facility] PFIZER VACCINE 00:00:00 [facility] SARS-COV-2 COVID-19 2020-11-22 Completed [facility] PFIZER VACCINE 00:00:00 [facility] Influenza Virus 2020-05-27 Completed [facility] [...] VACCINE 2019-08-10 Completed [facility] 00:00:00 [facility] TDAP 2019-08-10 Completed [facility] of 00:00:00 [facility] Pneumococcal 2019-08-10 Completed University o f Polysaccharide, 00:00:00 [facility] ical PPSV23 (PNEUMOVAX) Branch TDAP (ADACEL) VACCINE 2019-08-10 Completed [facility] 00:00:00 [facility] TDAP 2019-08-10 Completed [facility] of 00:00:00 [facility] Pneumococcal 2019-08-10 Completed [facility] o f Polysaccharide, 00:00:00 [facility] PPSV23 (PNEUMOVAX) [facility] TDAP (ADACEL) VACCINE 2019-08-10 Completed [facility] 00:00:00 [facility] TDAP 2019-08-10 Completed [facility] of 00:00:00 [facility] Pneumococcal 2019-08-10 Completed [facility] o f Polysaccharide, 00:00:00 [facility] ical PPSV23 (PNEUMOVAX) Branch TDAP (ADACEL) VACCINE 2019-08-10 Completed [facility] 00:00:00 [facility] TDAP 2019-08-10 Completed [facility] 00:00:00 [facility] Pneumococcal 2019-08-10 Completed [facility] o f Polysaccharide, 00:00:00 [place] [facility] PPSV23 (PNEUMOVAX) [facility] TDAP (ADACEL) VACCINE 2019-08-10 Completed [facility] 00:00:00 [facility] TDAP 2019-08-10 Completed [facility] 00:00:00 [facility] Pneumococcal 2019-08-10 Completed [facility] f Polysaccharide, 00:00:00 [place] [facility] PPSV23 (PNEUMOVAX) [facility] TDAP (ADACEL) VACCINE 2019-08-10 Completed [facility] 00:00:00 [facility] TDAP 2019-08-10 Completed [facility] 00:00:00 [facility] Pneumococcal 2019-08-10 Completed [facility] o f Polysaccharide, 00:00:00 [place] [facility] PPSV23 (PNEUMOVAX) [facility] TDAP (ADACEL) VACCINE 2019-08-10 Completed [facility] 00:00:00 [facility] TDAP 2019-08-10 Completed [facility] 00:00:00 [facility] Pneumococcal 2019-08-10 Completed [facility] o f Polysaccharide, 00:00:00 [place] [facility] PPSV23 (PNEUMOVAX) Branch TDAP (ADACEL) VACCINE 2019-08-10 Completed [facility] 00:00:00 [facility] TDAP 2019-08-10 Completed [facility] 00:00:00 [facility] Pneumococcal 2019-08-10 Completed [facility] o f Polysaccharide, 00:00:00 [place] [facility] PPSV23 (PNEUMOVAX) Branch TDAP (ADACEL) VACCINE 2019-08-10 Completed [facility] 00:00:00 [facility] TDAP 2019-08-10 Completed [facility] 00:00:00 [facility] Pneumococcal 2019-08-10 Completed [facility] o f Polysaccharide, 00:00:00 [place] [facility] PPSV23 (PNEUMOVAX) Branch TDAP (ADACEL) VACCINE 2019-08-10 Completed [facility] 00:00:00 [facility] TDAP 2019-08-10 Completed [facility] 00:00:00 [facility] Pneumococcal 2019-08-10 Completed [facility] o f Polysaccharide, 00:00:00 [place] [facility] PPSV23 (PNEUMOVAX) Branch TDAP (ADACEL) VACCINE 2019-08-10 Completed [facility] 00:00:00 [facility] TDAP 2019-08-10 Completed [facility] 00:00:00 [facility] Pneumococcal 2019-08-10 Completed [facility] o f Polysaccharide, 00:00:00 [place] [facility] PPSV23 (PNEUMOVAX) [facility] TDAP (ADACEL) VACCINE 2019-08-10 Completed [facility] vers[facility] of 00:00:00 [facility] TDAP 2019-08-10 Completed [facility] 00:00:00 [facility] Pneumococcal 2019-08-10 Completed [facility] o f Polysaccharide, 00:00:00 [place] [facility] PPSV23 (PNEUMOVAX) [facility] TDAP (ADACEL) VACCINE 2019-08-10 Completed [facility] versity of 00:00:00 [facility] TDAP 2019-08-10 Completed [facility] 00[facility]00 [facility] [facility] P[facility]ococcal 2019-08-10 Completed [facility] Pol[facility], 00:00:00 [place] [facility] PPSV23 (PNEUMOVAX) [facility] TDAP (ADACEL) VACCINE 2019-08-10 Completed [facility] 00:00:00 [facility] TDAP 2019-08-10 Completed [facility] 00:00:00 [facility] Pneumococcal 2019-08-10 Completed [facility] Polysaccharide, 00:00:00 [place] [facility] PPSV23 (PNEUMOVAX) [facility] TDAP (ADACEL) VACCINE 2019-08-10 Completed [facility] 00:00:00 [facility] TDAP 2019-08-10 Completed [facility] 00:00:00 [facility] Pneumococcal 2019-08-10 Completed [facility] Polysaccharide, 00:00:00 [place] [facility] PPSV23 (PNEUMOVAX) [facility] TDAP (ADACEL) VACCINE 2019-08-10 Completed [facility] 00:00:00 [facility] TDAP 2019-08-10 Completed [facility] 00:00:00 [facility] Pneumococcal 2019-08-10 Completed [facility] Polys[facility], 00:00:00 [place] [facility] PPSV23 (PNEUMOVAX) [facility] TDAP (ADACEL) VACCINE 2019-08-10 Completed [facility] 00:00:00 [facility] TDAP 2019-08-10 Completed [facility] 00:00:00 [facility] Pneumococcal 2019-08-10 Completed [facility] Polysaccharide, 00:00:00 [place] [facility] PPSV23 (PNEUMOVAX) [facility] TDAP (ADACEL) VACCINE 2019-08-10 Completed [facility] 00:00:00 [facility] TDAP 2019-08-10 Completed [facility] 00:00:00 [facility] Pneumococcal 2019-08-10 Completed [facility] Polysaccharide, 00:00:00 [place] [facility] PPSV23 (PNEUMOVAX) [facility] TDAP (ADACEL) VACCINE 2019-08-10 Completed [facility] 00:00:00 [facility] TDAP 2019-08-10 Completed [facility] 00:00:00 [facility] Pneumococcal 2019-08-10 Completed [facility] Polysaccharide, 00:00:00 [place] [facility] PPSV23 (PNEUMOVAX) [facility] TDAP (ADACEL) VACCINE 2019-08-10 Completed [facility] 00:00:00 [facility] TDAP 2019-08-10 Completed [facility] 00:00:00 [facility] Pneumococcal 2019-08-10 Completed [facility] Polysaccharide, 00:00:00 [place] [facility] PPSV23 (PNEUMOVAX) [facility] TDAP (ADACEL) VACCINE 2019-08-10 Completed [facility] 00:00:00 [facility] TDAP 2019-08-10 Completed [facility] 00:00:00 [facility] Pneumococcal 2019-08-10 Completed [facility] Polysaccharide, 00:00:00 [place] [facility] PPSV23 (PNEUMOVAX) [facility] TDAP (ADACEL) VACCINE 2019-08-10 Completed [facility] 00:00:00 [facility] TDAP 2019-08-10 Completed [facility] 00:00:00 [facility] Pneumococcal 2019-08-10 Completed [facility] Polysaccharide, 00:00:00 [place] [facility] PPSV23 (PNEUMOVAX) [facility] TDAP (ADACEL) VACCINE 2019-08-10 Completed [facility] 00:00:00 [facility] TDAP 2019-08-10 Completed [facility] 00:00:00 [facility] Pneumococcal 2019-08-10 Completed [facility] Polysaccharide, 00:00:00 [place] [facility] PPSV23 (PNEUMOVAX) [facility] TDAP (ADACEL) VACCINE 2019-08-10 Completed [facility] 00:00:00 [facility] TDAP 2019-08-10 Completed [facility] 00:00:00 [facility] Pneumococcal 2019-08-10 Completed [facility] o [...] 2019-08-10 Completed [facility] 00:00:00 [facility] Pneumococcal 2019-08-10 Completed [facility] Polysaccharide, 00:00:00 [place] [facility] PPSV23 (PNEUMOVAX) [facility] TDAP (ADACEL) VACCINE 2019-08-10 Completed [facility] 00:00:00 [facility] TDAP 2019-08-10 Completed [facility] 00:00:00 [facility] Pneumococcal 2019-08-10 Completed [facility] Polysaccharide, 00:00:00 [place] [facility] PPSV23 (PNEUMOVAX) Branch TDAP (ADACEL) VACCINE 2019-08-10 Completed [facility] 00:00:00 [facility] TDAP 2019-08-10 Completed [facility] 00:00:00 [facility] Pneumococcal 2019-08-10 Completed [facility] Polysaccharide, 00:00:00 [place] [facility] PPSV23 (PNEUMOVAX) Branch TDAP (ADACEL) VACCINE 2019-08-10 Completed [facility] 00:00:00 [facility] TDAP 2019-08-10 Completed [facility] 00:00:00 [facility] Pneumococcal 2019-08-10 Completed [facility] Polysaccharide, 00:00:00 [place] [facility] PPSV23 (PNEUMOVAX) Branch TDAP (ADACEL) VACCINE 2019-08-10 Completed [facility] 00:00:00 [facility] TDAP 2019-08-10 Completed [facility] 00:00:00 [facility] Pneumococcal 2019-08-10 Completed [facility] o [...] 2019-08-10 Completed [facility] 00:00:00 [facility] Pneumococcal 2019-08-10 Completed [facility] Polysaccharide, 00:00:00 [place] [facility] PPSV23 (PNEUMOVAX) Branch TDAP (ADACEL) VACCINE 2019-08-10 Completed [facility] 00:00:00 [facility] TDAP 2019-08-10 Completed [facility] 00:00:00 [facility] Pneumococcal 2019-08-10 Completed [facility] Polysaccharide, 00:00:00 [place] [facility] PPSV23 (PNEUMOVAX) Branch TDAP (ADACEL) VACCINE 2019-08-10 Completed [facility] 00:00:00 [facility] TDAP 2019-08-10 Completed [facility] 00:00:00 [facility] Pneumococcal 2019-08-10 Completed [facility] Polysaccharide, 00:00:00 [place] [facility] PPSV23 (PNEUMOVAX) [facility] TDAP (ADACEL) VACCINE 2019-08-10 Completed [facility] 00:00:00 [facility] TDAP 2019-08-10 Completed [facility] 00:00:00 [facility] Pneumococcal 2019-08-10 Completed [facility] Polysaccharide, 00:00:00 [place] [facility] PPSV23 (PNEUMOVAX) Branch TDAP (ADACEL) VACCINE 2019-08-10 Completed [facility] 00:00:00 [facility] TDAP 2019-08-10 Completed [facility] 00:00:00 [facility] Pneumococcal 2019-08-10 Completed [facility] Polysaccharide, 00:00:00 [place] [facility] PPSV23 (PNEUMOVAX) [facility] TDAP (ADACEL) VACCINE 2019-08-10 Completed [facility] 00:00:00 [facility] TDAP 2019-08-10 Completed [facility] 00:00:00 [facility] Pneumococcal 2019-08-10 Completed [facility] Polysaccharide, 00:00:00 [place] [facility] PPSV23 (PNEUMOVAX) Branch TDAP (ADACEL) VACCINE 2019-08-10 Completed [facility] 00:00:00 [facility] TDAP 2019-08-10 Completed [facility] 00:00:00 [facility] Pneumococcal 2019-08-10 Completed [facility] Polysaccharide, 00:00:00 [place] [facility] PPSV23 (PNEUMOVAX) Branch TDAP (ADACEL) VACCINE 2019-08-10 Completed [facility] 00:00:00 [place] [facility] TDAP 2019-08-10 Completed [facility] 00:00:00 [facility] Pneumococcal 2019-08-10 Completed [facility] Polysaccharide, 00:00:00 [place] [facility] PPSV23 (PNEUMOVAX) Branch TDAP (ADACEL) VACCINE 2019-08-10 Completed [facility] 00:00:00 [facility] TDAP 2019-08-10 Completed [facility] 00:00:00 [facility] Pneumococcal 2019-08-10 Completed [facility] Polysaccharide, 00:00:00 [place] [facility] PPSV23 (PNEUMOVAX) Branch TDAP (ADACEL) VACCINE 2019-08-10 Completed [facility] 00:00:00 [facility] TDAP 2019-08-10 Completed [facility] 00:00:00 [facility] Pneumococcal 2019-08-10 Completed [facility] Polysaccharide, 00:00:00 [place] [facility] PPSV23 (PNEUMOVAX) [facility] TDAP (ADACEL) VACCINE 2019-08-10 Completed [facility] 00:00:00 [facility] TDAP 2019-08-10 Completed [facility] 00:00:00 [facility] Pneumococcal 2019-08-10 Completed [facility] Polysaccharide, 00:00:00 [place] [facility] PPSV23 (PNEUMOVAX) Branch TDAP (ADACEL) VACCINE 2019-08-10 Completed [facility] 00:00:00 [facility] TDAP 2019-08-10 Completed [facility] 00:00:00 [facility] Pneumococcal 2019-08-10 Completed [facility] Polysaccharide, 00:00:00 [place] [facility] PPSV23 (PNEUMOVAX) Branch TDAP (ADACEL) VACCINE 2019-08-10 Completed [facility] 00:00:00 [facility] TDAP 2019-08-10 Completed [facility] 00:00:00 [facility] Pneumococcal 2019-08-10 Completed [facility] Polysaccharide, 00:00:00 [place] [facility] PPSV23 (PNEUMOVAX) Branch TDAP (ADACEL) VACCINE 2019-08-10 Completed [facility] 00:00:00 [facility] TDAP 2019-08-10 Completed [facility] 00:00:00 [facility] Pneumococcal 2019-08-10 Completed [facility] Polysaccharide, 00:00:00 [place] [facility] PPSV23 (PNEUMOVAX) Branch TDAP (ADACEL) VACCINE 2019-08-10 Completed [facility] 00:00:00 [facility] TDAP 2019-08-10 Completed [facility] 00:00:00 [facility] Pneumococcal 2019-08-10 Completed [facility] Polysaccharide, 00:00:00 [place] [facility] PPSV23 (PNEUMOVAX) Branch TDAP (ADACEL) VACCINE 2019-08-10 Completed [facility] 00:00:00 [facility] TDAP 2019-08-10 Completed [facility] 00:00:00 [facility] Pneumococcal 2019-08-10 Completed [facility] Polysaccharide, 00:00:00 [place] [facility] PPSV23 (PNEUMOVAX) Branch TDAP (ADACEL) VACCINE 2019-08-10 Completed [facility] 00:00:00 [facility] TDAP 2019-08-10 Completed [facility] 00:00:00 [facility] Pneumococcal 2019-08-10 Completed [facility] Polysaccharide, 00:00:00 [place] [facility] PPSV23 (PNEUMOVAX) Branch TDAP (ADACEL) VACCINE 2019-08-10 Completed [facility] 00:00:00 [facility] TDAP 2019-08-10 Completed [facility] 00:00:00 [facility] Pneumococcal 2019-08-10 Completed [facility] Polysaccharide, 00:00:00 [place] [facility] PPSV23 (PNEUMOVAX) Branch TDAP (ADACEL) VACCINE 2019-08-10 Completed [facility] 00:00:00 [facility] TDAP 2019-08-10 Completed [facility] 00:00:00 [facility] Pneumococcal 2019-08-10 Completed [facility] Polysaccharide, 00:00:00 [place] [facility] PPSV23 (PNEUMOVAX) Branch TDAP (ADACEL) VACCINE 2019-08-10 Completed [facility] 00:00:00 [facility] TDAP 2019-08-10 Completed [facility] 00:00:00 [facility] Pneumococcal 2019-08-10 Completed [facility] Polysaccharide, 00:00:00 [place] [facility] PPSV23 (PNEUMOVAX) Branch TDAP (ADACEL) VACCINE 2019-08-10 Completed [facility] 00:00:00 [facility] TDAP 2019-08-10 Completed [facility] 00:00:00 [facility] Pneumococcal 2019-08-10 Completed [facility] Polysaccharide, 00:00:00 [place] [facility] PPSV23 (PNEUMOVAX) Branch TDAP (ADACEL) VACCINE 2019-08-10 Completed [facility] 00:00:00 [facility] TDAP 2019-08-10 Completed [facility] 00:00:00 [facility] Pneumococcal 2019-08-10 Completed [facility] Polysaccharide, 00:00:00 [place] [facility] PPSV23 (PNEUMOVAX) Branch TDAP (ADACEL) VACCINE 2019-08-10 Completed [facility] 00:00:00 [facility] TDAP 2019-08-10 Completed [facility] 00:00:00 [facility] Pneumococcal 2019-08-10 Completed [facility] Polysaccharide, 00:00:00 [place] [facility] PPSV23 (PNEUMOVAX) Branch TDAP (ADACEL) VACCINE 2019-08-10 Completed [facility] 00:00:00 [facility] TDAP 2019-08-10 Completed [facility] 00:00:00 [facility] Pneumococcal 2019-08-10 Completed [facility] f Polysaccharide, 00:00:00 [place] [facility] PPSV23 (PNEUMOVAX) Branch TDAP (ADACEL) VACCINE 2019-08-10 Completed [facility] 00:00:00 [facility] TDAP 2019-08-10 Completed [facility] 00:00:00 [facility] Pneumococcal 2019-08-10 Completed [facility] Polysaccharide, 00:00:00 [place] [facility] PPSV23 (PNEUMOVAX) Branch TDAP (ADACEL) VACCINE 2019-08-10 Completed [facility] 00:00:00 [facility] TDAP 2019-08-10 Completed [facility] 00:00:00 [facility] Pneumococcal 2019-08-10 Completed [facility] Polysaccharide, 00:00:00 [place] [facility] PPSV23 (PNEUMOVAX) Branch TDAP (ADACEL) VACCINE 2019-08-10 Completed [facility] 00:00:00 [place] [facility] TDAP 2019-08-10 Completed [facility] 00:00:00 [facility] Pneumococcal 2019-08-10 Completed [facility] Polysaccharide, 00:00:00 [place] [facility] PPSV23 (PNEUMOVAX) Branch TDAP (ADACEL) VACCINE 2019-08-10 Completed [facility] 00:00:00 [facility] TDAP 2019-08-10 Completed [facility] 00:00:00 [facility] Pneumococcal 2019-08-10 Completed [facility] Polysaccharide, 00:00:00 [place] [facility] PPSV23 (PNEUMOVAX) Branch TDAP (ADACEL) VACCINE 2019-08-10 Completed [facility] 00:00:00 [facility] TDAP 2019-08-10 Completed [facility] 00:00:00 [facility] Pneumococcal 2019-08-10 Completed [facility] Polysaccharide, 00:00:00 [place] [facility] PPSV23 (PNEUMOVAX) Branch TDAP (ADACEL) VACCINE 2019-08-10 Completed [facility] 00:00:00 [facility] TDAP 2019-08-10 Completed [facility] 00:00:00 [facility] Pneumococcal 2019-08-10 Completed [facility] Polysaccharide, 00:00:00 [place] [facility] PPSV23 (PNEUMOVAX) Branch TDAP (ADACEL) VACCINE 2019-08-10 Completed [facility] 00:00:00 [facility] TDAP 2019-08-10 Completed [facility] 00:00:00 [facility] Pneumococcal 2019-08-10 Completed [facility] Polysaccharide, 00:00:00 [place] [facility] PPSV23 (PNEUMOVAX) Branch TDAP (ADACEL) VACCINE 2019-08-10 Completed [facility] 00:00:00 [facility] TDAP 2019-08-10 Completed [facility] 00:00:00 [facility] Pneumococcal 2019-08-10 Completed [facility] Polysaccharide, 00:00:00 [place] [facility] PPSV23 (PNEUMOVAX) Branch TDAP (ADACEL) VACCINE 2019-08-10 Completed [facility] 00:00:00 [facility] TDAP 2019-08-10 Completed [facility] 00:00:00 [facility] Pneumococcal 2019-08-10 Completed [facility] Polysaccharide, 00:00:00 [place] [facility] PPSV23 (PNEUMOVAX) Branch TDAP (ADACEL) VACCINE 2019-08-10 Completed [facility] 00:00:00 [facility] TDAP 2019-08-10 Completed [facility] 00:00:00 [facility] Pneumococcal 2019-08-10 Completed [facility] Polysaccharide, 00:00:00 [place] [facility] PPSV23 (PNEUMOVAX) Branch TDAP (ADACEL) VACCINE 2019-08-10 Completed [facility] 00:00:00 [facility] TDAP 2019-08-10 Completed [facility] 00:00:00 [facility] Pneumococcal 2019-08-10 Completed [facility] Polysaccharide, 00:00:00 [place] [facility] PPSV23 (PNEUMOVAX) Branch TDAP (ADACEL) VACCINE 2019-08-10 Completed [facility] 00:00:00 [facility] TDAP 2019-08-10 Completed [facility] 00:00:00 [facility] Pneumococcal 2019-08-10 Completed [facility] f Polysaccharide, 00:00:00 [place] [facility] PPSV23 (PNEUMOVAX) Branch TDAP (ADACEL) VACCINE 2019-08-10 Completed [facility] 00:00:00 [facility] TDAP 2019-08-10 Completed [facility] 00:00:00 [facility] Pneumococcal 2019-08-10 Completed [facility] Polysaccharide, 00:00:00 [place] [facility] PPSV23 (PNEUMOVAX) Branch TDAP (ADACEL) VACCINE 2019-08-10 Completed [facility] 00:00:00 [facility] TDAP 2019-08-10 Completed [facility] 00:00:00 [facility] Pneumococcal 2019-08-10 Completed [facility] Polysaccharide, 00:00:00 [place] [facility] PPSV23 (PNEUMOVAX) Branch TDAP (ADACEL) VACCINE 2019-08-10 Completed [facility] 00:00:00 [facility] TDAP 2019-08-10 Completed [facility] 00:00:00 [facility] Pneumococcal 2019-08-10 Completed [facility] Polysaccharide, 00:00:00 [place] [facility] PPSV23 (PNEUMOVAX) Branch TDAP (ADACEL) VACCINE 2019-08-10 Completed [facility] 00:00:00 [facility] TDAP 2019-08-10 Completed [facility] 00:00:00 [facility] Pneumococcal 2019-08-10 Completed [facility] Polysaccharide, 00:00:00 [place] [facility] PPSV23 (PNEUMOVAX) Branch TDAP (ADACEL) VACCINE 2019-08-10 Completed [facility] 00:00:00 [place] [facility] TDAP 2019-08-10 Completed [facility] 00:00:00 [facility] Pneumococcal 2019-08-10 Completed [facility] Polysaccharide, 00:00:00 [place] [facility] PPSV23 (PNEUMOVAX) Branch TDAP (ADACEL) VACCINE 2019-08-10 Completed [facility] 00:00:00 [facility] TDAP 2019-08-10 Completed [facility] 00:00:00 [facility] Pneumococcal 2019-08-10 Completed [facility] Polysaccharide, 00:00:00 [place] [facility] PPSV23 (PNEUMOVAX) Branch TDAP (ADACEL) VACCINE 2019-08-10 Completed [facility] 00:00:00 [facility] TDAP 2019-08-10 Completed [facility] 00:00:00 [facility] Pneumococcal 2019-08-10 Completed [facility] Polysaccharide, 00:00:00 [place] [facility] PPSV23 (PNEUMOVAX) Branch TDAP (ADACEL) VACCINE 2019-08-10 Completed [facility] 00:00:00 [facility] TDAP 2019-08-10 Completed [facility] 00:00:00 [facility] Pneumococcal 2019-08-10 Completed [facility] Polysaccharide, 00:00:00 [place] [facility] PPSV23 (PNEUMOVAX) Branch TDAP (ADACEL) VACCINE 2019-08-10 Completed [facility] 00:00:00 [facility] TDAP 2019-08-10 Completed [facility] 00:00:00 [facility] Pneumococcal 2019-08-10 Completed [facility] Polysaccharide, 00:00:00 [place] [facility] PPSV23 (PNEUMOVAX) Branch TDAP (ADACEL) VACCINE 2019-08-10 Completed [facility] 00:00:00 [facility] TDAP 2019-08-10 Completed [facility] 00:00:00 [facility] Pneumococcal 2019-08-10 Completed [facility] Polysaccharide, 00:00:00 [place] [facility] PPSV23 (PNEUMOVAX) Branch TDAP (ADACEL) VACCINE 2019-08-10 Completed [facility] 00:00:00 [facility] TDAP 2019-08-10 Completed [facility] 00:00:00 [facility] Pneumococcal 2019-08-10 Completed [facility] Polysaccharide, 00:00:00 [place] [facility] PPSV23 (PNEUMOVAX) Branch TDAP (ADACEL) VACCINE 2019-08-10 Completed [facility] 00:00:00 [facility] TDAP 2019-08-10 Completed [facility] 00:00:00 [facility] Pneumococcal 2019-08-10 Completed [facility] Polysaccharide, 00:00:00 [place] [facility] PPSV23 (PNEUMOVAX) Branch TDAP (ADACEL) VACCINE 2019-08-10 Completed [facility] 00:00:00 [place] [facility] TDAP 2019-08-10 Completed [facility] 00:00:00 [facility] Pneumococcal 2019-08-10 Completed [facility] Polysaccharide, 00:00:00 [place] [facility] PPSV23 (PNEUMOVAX) Branch TDAP (ADACEL) VACCINE 2019-08-10 Completed [facility] 00:00:00 [facility] TDAP 2019-08-10 Completed [facility] 00:00:00 [facility] Pneumococcal 2019-08-10 Completed [facility] Polysaccharide, 00:00:00 [place] [facility] PPSV23 (PNEUMOVAX) Branch TDAP (ADACEL) VACCINE 2019-08-10 Completed [facility] 00:00:00 [facility] TDAP 2019-08-10 Completed [facility] 00:00:00 [facility] Pneumococcal 2019-08-10 Completed [facility] Polysaccharide, 00:00:00 [place] [facility] PPSV23 (PNEUMOVAX) Branch TDAP (ADACEL) VACCINE 2019-08-10 Completed [facility] 00:00:00 [facility] TDAP 2019-08-10 Completed [facility] 00:00:00 [facility] Pneumococcal 2019-08-10 Completed [facility] Polysaccharide, 00:00:00 [place] [facility] PPSV23 (PNEUMOVAX) Branch TDAP (ADACEL) VACCINE 2019-08-10 Completed [facility] 00:00:00 [facility] TDAP 2019-08-10 Completed [facility] 00:00:00 [facility] Pneumococcal 2019-08-10 Completed [facility] Polysaccharide, 00:00:00 [place] [facility] PPSV23 (PNEUMOVAX) Branch TDAP (ADACEL) VACCINE 2019-08-10 Completed [facility] 00:00:00 [facility] TDAP 2019-08-10 Completed [facility] 00:00:00 [facility] Pneumococcal 2019-08-10 Completed [facility] Polysaccharide, 00:00:00 [place] [facility] PPSV23 (PNEUMOVAX) Branch TDAP (ADACEL) VACCINE 2019-08-10 Completed [facility] 00:00:00 [facility] TDAP 2019-08-10 Completed [facility] 00:00:00 [facility] Pneumococcal 2019-08-10 Completed [facility] Polysaccharide, 00:00:00 [place] [facility] PPSV23 (PNEUMOVAX) Branch TDAP (ADACEL) VACCINE 2019-08-10 Completed [facility] 00:00:00 [facility] TDAP 2019-08-10 Completed [facility] 00:00:00 [facility] Pneumococcal 2019-08-10 Completed [facility] Polysaccharide, 00:00:00 [place] [facility] PPSV23 (PNEUMOVAX) Branch TDAP (ADACEL) VACCINE 2019-08-10 Completed [facility] 00:00:00 [facility] TDAP 2019-08-10 Completed [facility] 00:00:00 [facility] Pneumococcal 2019-08-10 Completed [facility] Polysaccharide, 00:00:00 [place] [facility] PPSV23 (PNEUMOVAX) Branch TDAP (ADACEL) VACCINE 2019-08-10 Completed [facility] 00:00:00 [facility] TDAP 2019-08-10 Completed [facility] 00:00:00 [facility] Pneumococcal 2019-08-10 Completed [facility] Polysaccharide, 00:00:00 [place] [facility] PPSV23 (PNEUMOVAX) Branch TDAP (ADACEL) VACCINE 2019-08-10 Completed [facility] 00:00:00 [facility] TDAP 2019-08-10 Completed [facility] 00:00:00 [facility] Pneumococcal 2019-08-10 Completed [facility] Polysaccharide, 00:00:00 [place] [facility] PPSV23 (PNEUMOVAX) Branch TDAP (ADACEL) VACCINE 2019-08-10 Completed [facility] 00:00:00 [facility] TDAP 2019-08-10 Completed [facility] 00:00:00 [facility] Pneumococcal 2019-08-10 Completed [facility] Polysaccharide, 00:00:00 [place] [facility] PPSV23 (PNEUMOVAX) Branch TDAP (ADACEL) VACCINE 2019-08-10 Completed [facility] 00:00:00 [facility] TDAP 2019-08-10 Completed [facility] 00:00:00 [facility] Pneumococcal 2019-08-10 Completed [facility] Polysaccharide, 00:00:00 [place] [facility] ical PPSV23 (PNEUMOVAX) Branch TDAP (ADACEL) VACCINE 2019-08-10 Completed [facility] vers[facility] of 00:00:00 [facility] Branch TDAP 2019-08-10 Completed [facility] 00:00:00 [facility] Pneumococcal 2019-08-10 Completed University o f Polysaccharide, 00:00:00 [place] [facility] PPSV23 (PNEUMOVAX) Branch TDAP (ADACEL) VACCINE 2019-08-10 Completed Uni versity of 00:00:00 [facility] TDAP 2019-08-10 Completed [facility] of 00:00:00 [facility] Pneumococcal 2019-08-10 Completed University o f Polysaccharide, 00:00:00 [place] [facility] PPSV23 (PNEUMOVAX) Branch TDAP (ADACEL) VACCINE 2019-08-10 Completed [facility] versity of 00:00:00 [facility] TDAP 2019-08-10 Completed [facility] of 00:00:00 [facility] Pneumococcal 2019-08-10 Completed University o f Polysaccharide, 00:00:00 [place] [facility] PPSV23 (PNEUMOVAX) Branch TDAP (ADACEL) VACCINE 2019-08-10 Completed [facility] vers[facility] of 00:00:00 [facility] TDAP 2019-08-10 Completed University of 00:00:00 [facility] Pneumococcal 2019-08-10 Completed University o f Polysaccharide, 00:00:00 [place] [facility] PPSV23 (PNEUMOVAX) Branch TDAP (ADACEL) VACCINE 2019-08-10 Completed [facility] versity of 00:00:00 [facility] TDAP 2019-08-10 Completed [facility] of 00:00:00 [facility] Pneumococcal 2019-08-10 Completed University o f Polysaccharide, 00:00:00 [place] [facility] PPSV23 (PNEUMOVAX) Branch TDAP (ADACEL) VACCINE 2019-08-10 Completed Uni versity of 00:00:00 [facility] Branch TDAP 2019-08-10 Completed [facility] of 00:00:00 [facility] Pneumococcal 2019-08-10 Completed University o f Polysaccharide, 00:00:00 [place] [facility] PPSV23 (PNEUMOVAX) Branch TDAP (ADACEL) VACCINE 2019-08-10 Completed Uni versity of 00:00:00 [facility] Branch TDAP 2019-08-10 Completed [facility] of 00:00:00 [facility] Pneumococcal 2019-08-10 Completed University o f Polysaccharide, 00:00:00 [place] [facility] PPSV23 (PNEUMOVAX) Branch TDAP (ADACEL) VACCINE 2019-08-10 Completed Uni versity of 00:00:00 [facility] TDAP 2019-08-10 Completed [facility] of 00:00:00 [facility] Pneumococcal 2019-08-10 Completed University o f Polysaccharide, 00:00:00 [place] [facility] PPSV23 (PNEUMOVAX) Branch TDAP (ADACEL) VACCINE 2019-08-10 Completed Uni versity of 00:00:00 [facility] TDAP 2019-08-10 Completed [facility] of 00:00:00 [facility] Pneumococcal 2019-08-10 Completed University o f Polysaccharide, 00:00:00 [place] [facility] PPSV23 (PNEUMOVAX) Branch TDAP (ADACEL) VACCINE 2019-08-10 Completed Uni versity of 00:00:00 [facility] TDAP 2019-08-10 Completed University of 00:00:00 [facility] Pneumococcal 2019-08-10 Completed University o f Polysaccharide, 00:00:00 [place] [facility] PPSV23 (PNEUMOVAX) Branch TDAP (ADACEL) VACCINE 2019-08-10 Completed Uni versity of 00:00:00 [facility] TDAP 2019-08-10 Completed University of 00:00:00 [facility] Pneumococcal 2019-08-10 Completed University o f Polysaccharide, 00:00:00 [place] [facility] PPSV23 (PNEUMOVAX) Branch TDAP (ADACEL) VACCINE 2019-08-10 Completed Uni versity of 00:00:00 [facility] TDAP 2019-08-10 Completed University of 00:00:00 [facility] Pneumococcal 2019-08-10 Completed University o f Polysaccharide, 00:00:00 [place] [facility] PPSV23 (PNEUMOVAX) Branch TDAP (ADACEL) VACCINE 2019-08-10 Completed Uni versity of 00:00:00 [facility] TDAP 2019-08-10 Completed [facility] of 00:00:00 [facility] Pneumococcal 2019-08-10 Completed University o f Polysaccharide, 00:00:00 [place] [facility] PPSV23 (PNEUMOVAX) Branch TDAP (ADACEL) VACCINE 2019-08-10 Completed Uni versity of 00:00:00 [facility] TDAP 2019-08-10 Completed [facility] of 00:00:00 [facility] Pneumococcal 2019-08-10 Completed University o f Polysaccharide, 00:00:00 [place] [facility] PPSV23 (PNEUMOVAX) Branch TDAP (ADACEL) VACCINE 2019-08-10 Completed Uni versity of 00:00:00 [facility] TDAP 2019-08-10 Completed [facility] of 00:00:00 [facility] Pneumococcal 2019-08-10 Completed University o f Polysaccharide, 00:00:00 [place] [facility] PPSV23 (PNEUMOVAX) Branch TDAP (ADACEL) VACCINE 2019-08-10 Completed Uni versity of 00:00:00 [facility] TDAP 2019-08-10 Completed University of 00:00:00 [facility] Pneumococcal 2019-08-10 Completed University o f Polysaccharide, 00:00:00 [place] [facility] PPSV23 (PNEUMOVAX) Branch TDAP (ADACEL) VACCINE 2019-08-10 Completed Uni versity of 00:00:00 [facility] TDAP 2019-08-10 Completed [facility] of 00:00:00 [facility] Pneumococcal 2019-08-10 Completed University o f Polysaccharide, 00:00:00 [place] [facility] PPSV23 (PNEUMOVAX) Branch TDAP (ADACEL) VACCINE 2019-08-10 Completed Uni versity of 00:00:00 [facility] TDAP 2019-08-10 Completed [facility] of 00:00:00 [facility] Pneumococcal 2019-08-10 Completed University o f Polysaccharide, 00:00:00 [place] [facility] PPSV23 (PNEUMOVAX) Branch TDAP (ADACEL) VACCINE 2019-08-10 Completed Uni versity of 00:00:00 [facility] TDAP 2019-08-10 Completed [facility] of 00:00:00 [facility] Pneumococcal 2019-08-10 Completed University o f Polysaccharide, 00:00:00 [place] [facility] PPSV23 (PNEUMOVAX) Branch TDAP (ADACEL) VACCINE 2019-08-10 Completed Uni versity of 00:00:00 [facility] TDAP 2019-08-10 Completed [facility] of 00:00:00 [facility] Pneumococcal 2019-08-10 Completed University o f Polysaccharide, 00:00:00 [place] [facility] PPSV23 (PNEUMOVAX) Branch TDAP (ADACEL) VACCINE 2019-08-10 Completed Uni versity of 00:00:00 [facility] TDAP 2019-08-10 Completed [facility] of 00:00:00 [facility] Pneumococcal 2019-08-10 Completed University o f Polysaccharide, 00:00:00 [place] [facility] PPSV23 (PNEUMOVAX) Branch TDAP (ADACEL) VACCINE 2019-08-10 Completed Uni versity of 00:00:00 [facility] TDAP 2019-08-10 Completed University of 00:00:00 [facility] Pneumococcal 2019-08-10 Completed University o f Polysaccharide, 00:00:00 [place] [facility] PPSV23 (PNEUMOVAX) Branch TDAP (ADACEL) VACCINE 2019-08-10 Completed Uni versity of 00:00:00 [facility] TDAP 2019-08-10 Completed University of 00:00:00 [facility] Pneumococcal 2019-08-10 Completed University o f Polysaccharide, 00:00:00 [facility] ical PPSV23 (PNEUMOVAX) Branch TDAP (ADACEL) VACCINE 2019-08-10 Completed Uni versity of 00:00:00 [facility] TDAP 2019-08-10 Completed University of 00:00:00 [facility] Pneumococcal 2019-08-10 Completed University o f Polysaccharide, 00:00:00 [place] [facility] PPSV23 (PNEUMOVAX) Branch TDAP (ADACEL) VACCINE 2019-08-10 Completed Uni versity of 00:00:00 [facility] TDAP 2019-08-10 Completed University of 00:00:00 [facility] Pneumococcal 2019-08-10 Completed University o f Polysaccharide, 00:00:00 [facility] ical PPSV23 (PNEUMOVAX) Branch TDAP (ADACEL) VACCINE 2019-08-10 Completed Uni versity of 00:00:00 [facility] TDAP 2019-08-10 Completed University of 00:00:00 [facility] Influenza Virus 2019-07-04 Completed Universit y of Vaccine 00:00:00 [facility] Influenza Virus 2019-07-04 Completed Universit y of Vaccine Recomb Quad 00:00:00 [place] [facility] IM, Preserv and ABX Branc h Free 18-64 YRS Influenza Virus 2019-07-04 Completed Universit y of Vaccine 00:00:00 [facility] Influenza Virus 2019-07-04 Completed Universit y of Vaccine Recomb Quad 00:00:00 [facility] IM, Preserv and ABX Branc h Free 18-64 YRS Influenza Virus 2019-07-04 Completed Universit y of Vaccine 00:00:00 [facility] Influenza Virus 2019-07-04 Completed Universit y of Vaccine Recomb Quad 00:00:00 [place] [facility], Preserv and ABX Branc h Free 18-64 YRS Influenza Virus 2019-07-04 Completed Universit y of Vaccine 00:00:00 [facility] Influenza Virus 2019-07-04 Completed Universit y of Vaccine Recomb Quad 00:00:00 [place] [facility], Preserv and ABX Branc h Free 18-64 YRS Influenza Virus 2019-07-04 Completed Universit y of Vaccine 00:00:00 [facility] Influenza Virus 2019-07-04 Completed Universit y of Vaccine Recomb Quad 00:00:00 [place] [facility], Preserv and ABX Branc h Free 18-64 YRS Influenza Virus 2019-07-04 Completed Universit y of Vaccine 00:00:00 [facility] Influenza Virus 2019-07-04 Completed Universit y of Vaccine Recomb Quad 00:00:00 [place] [facility], Preserv and ABX Branc h Free 18-64 YRS Influenza Virus 2019-07-04 Completed Universit y of Vaccine 00:00:00 [facility] Influenza Virus 2019-07-04 Completed Universit y of Vaccine Recomb Quad 00:00:00 [place] [facility], Preserv and ABX Branc h Free 18-64 YRS Influenza Virus 2019-07-04 Completed Universit y of Vaccine 00:00:00 [facility] Influenza Virus 2019-07-04 Completed Universit y of Vaccine Recomb Quad 00:00:00 [place] [facility], Preserv and ABX Branc h Free 18-64 YRS Influenza Virus 2019-07-04 Completed Universit y of Vaccine 00:00:00 [facility] Influenza Virus 2019-07-04 Completed Universit y of Vaccine Recomb Quad 00:00:00 [place] [facility] IM, Preserv and ABX Branc h Free 18-64 YRS Influenza Virus 2019-07-04 Completed Universit y of Vaccine 00:00:00 [facility] Influenza Virus 2019-07-04 Completed Universit y of Vaccine Recomb Quad 00:00:00 [place] [facility], Preserv and ABX Branc h Free 18-64 YRS Influenza Virus 2019-07-04 Completed Universit y of Vaccine 00:00:00 [facility] Influenza Virus 2019-07-04 Completed Universit y of Vaccine Recomb Quad 00:00:00 [place] [facility], Preserv and ABX Branc h Free 18-64 YRS Influenza Virus 2019-07-04 Completed Universit y of Vaccine 00:00:00 [facility] Influenza Virus 2019-07-04 Completed Universit y of Vaccine Recomb Quad 00:00:00 [place] [facility], Preserv and ABX Branc h Free 18-64 YRS Influenza Virus 2019-07-04 Completed Universit y of Vaccine 00:00:00 [facility] Influenza Virus 2019-07-04 Completed Universit y of Vaccine Recomb Quad 00:00:00 [place] [facility], Preserv and ABX Branc h Free 18-64 YRS Influenza Virus 2019-07-04 Completed Universit y of Vaccine 00:00:00 [facility] Influenza Virus 2019-07-04 Completed Universit y of Vaccine Recomb Quad 00:00:00 [place] [facility], Preserv and ABX Branc h Free 18-64 YRS Influenza Virus 2019-07-04 Completed Universit y of Vaccine 00:00:00 [facility] Influenza Virus 2019-07-04 Completed Universit y of Vaccine Recomb Quad 00:00:00 [place] [facility], Preserv and ABX Branc h Free 18-64 YRS Influenza Virus 2019-07-04 Completed Universit y of Vaccine 00:00:00 [facility] Influenza Virus 2019-07-04 Completed Universit y of Vaccine Recomb Quad 00:00:00 [place] [facility], Preserv and ABX Branc h Free 18-64 YRS Influenza Virus 2019-07-04 Completed Universit y of Vaccine 00:00:00 [facility] Influenza Virus 2019-07-04 Completed Universit y of Vaccine Recomb Quad 00:00:00 [place] [facility] IM, Preserv and ABX Branc h Free 18-64 YRS Influenza Virus 2019-07-04 Completed Universit y of Vaccine 00:00:00 [facility] Influenza Virus 2019-07-04 Completed Universit y of Vaccine Recomb Quad 00:00:00 [place] [facility], Preserv and ABX Branc h Free 18-64 YRS Influenza Virus 2019-07-04 Completed Universit y of Vaccine 00:00:00 [facility] Influenza Virus 2019-07-04 Completed Universit y of Vaccine Recomb Quad 00:00:00 [place] [facility] IM, Preserv and ABX Branc h Free 18-64 YRS Influenza Virus 2019-07-04 Completed Universit y of Vaccine 00:00:00 [facility] Influenza Virus 2019-07-04 Completed Universit y of Vaccine Recomb Quad 00:00:00 [place] [facility] IM, Preserv and ABX Branc h Free 18-64 YRS Influenza Virus 2019-07-04 Completed Universit y of Vaccine 00:00:00 [facility] Influenza Virus 2019-07-04 Completed Universit y of Vaccine Recomb Quad 00:00:00 [place] [facility] IM, Preserv and ABX Branc h Free 18-64 YRS Influenza Virus 2019-07-04 Completed Universit y of Vaccine 00:00:00 [facility] Influenza Virus 2019-07-04 Completed Universit y of Vaccine Recomb Quad 00:00:00 [place] [facility], Preserv and ABX Branc h Free 18-64 YRS Influenza Virus 2019-07-04 Completed Universit y of Vaccine 00:00:00 [facility] Influenza Virus 2019-07-04 Completed Universit y of Vaccine Recomb Quad 00:00:00 [place] [facility] IM, Preserv and ABX Branc h Free 18-64 YRS Influenza Virus 2019-07-04 Completed Universit y of Vaccine 00:00:00 [facility] Influenza Virus 2019-07-04 Completed Universit y of Vaccine Recomb Quad 00:00:00 [place] [facility] IM, Preserv and ABX Branc h Free 18-64 YRS Influenza Virus 2019-07-04 Completed Universit y of Vaccine 00:00:00 [facility] Influenza Virus 2019-07-04 Completed Universit y of Vaccine Recomb Quad 00:00:00 [place] [facility] IM, Preserv and ABX Branc h Free 18-64 YRS Influenza Virus 2019-07-04 Completed Universit y of Vaccine 00:00:00 [facility] Influenza Virus 2019-07-04 Completed Universit y of Vaccine Recomb Quad 00:00:00 [place] [facility] IM, Preserv and ABX Branc h Free 18-64 YRS Influenza Virus 2019-07-04 Completed Universit y of Vaccine 00:00:00 [facility] Influenza Virus 2019-07-04 Completed Universit y of Vaccine Recomb Quad 00:00:00 [place] [facility] IM, Preserv and ABX Branc h Free 18-64 YRS Influenza Virus 2019-07-04 Completed Universit y of Vaccine 00:00:00 [facility] Influenza Virus 2019-07-04 Completed Universit y of Vaccine Recomb Quad 00:00:00 [place] [facility] IM, Preserv and ABX Branc h Free 18-64 YRS Influenza Virus 2019-07-04 Completed Universit y of Vaccine 00:00:00 [facility] Influenza Virus 2019-07-04 Completed Universit y of Vaccine Recomb Quad 00:00:00 [place] [facility], Preserv and ABX Branc h Free 18-64 YRS Influenza Virus 2019-07-04 Completed Universit y of Vaccine 00:00:00 [facility] Influenza Virus 2019-07-04 Completed Universit y of Vaccine Recomb Quad 00:00:00 [place] [facility], Preserv and ABX Branc h Free 18-64 YRS Influenza Virus 2019-07-04 Completed Universit y of Vaccine 00:00:00 [facility] Influenza Virus 2019-07-04 Completed Universit y of Vaccine Recomb Quad 00:00:00 [place] [facility] IM, Preserv and ABX Branc h Free 18-64 YRS Influenza Virus 2019-07-04 Completed Universit y of Vaccine 00:00:00 [facility] Influenza Virus 2019-07-04 Completed Universit y of Vaccine Recomb Quad 00:00:00 [place] [facility] IM, Preserv and ABX Branc h Free 18-64 YRS Influenza Virus 2019-07-04 Completed Universit y of Vaccine 00:00:00 [facility] Influenza Virus 2019-07-04 Completed Universit y of Vaccine Recomb Quad 00:00:00 [place] [facility] IM, Preserv and ABX Branc h Free 18-64 YRS Influenza Virus 2019-07-04 Completed Universit y of Vaccine 00:00:00 [facility] Influenza Virus 2019-07-04 Completed Universit y of Vaccine Recomb Quad 00:00:00 [place] [facility], Preserv and ABX Branc h Free 18-64 YRS Influenza Virus 2019-07-04 Completed Universit y of Vaccine 00:00:00 [facility] Influenza Virus 2019-07-04 Completed Universit y of Vaccine Recomb Quad 00:00:00 [place] [facility], Preserv and ABX Branc h Free 18-64 YRS Influenza Virus 2019-07-04 Completed Universit y of Vaccine 00:00:00 [facility] Influenza Virus 2019-07-04 Completed Universit y of Vaccine Recomb Quad 00:00:00 [place] [facility] IM, Preserv and ABX Branc h Free 18-64 YRS Influenza Virus 2019-07-04 Completed Universit y of Vaccine 00:00:00 [facility] Influenza Virus 2019-07-04 Completed Universit y of Vaccine Recomb Quad 00:00:00 [place] [facility], Preserv and ABX Branc h Free 18-64 YRS Influenza Virus 2019-07-04 Completed Universit y of Vaccine 00:00:00 [facility] Influenza Virus 2019-07-04 Completed Universit y of Vaccine Recomb Quad 00:00:00 [place] [facility] IM, Preserv and ABX Branc h Free 18-64 YRS Influenza Virus 2019-07-04 Completed Universit y of Vaccine 00:00:00 [facility] Influenza Virus 2019-07-04 Completed Universit y of Vaccine Recomb Quad 00:00:00 [place] [facility], Preserv and ABX Branc h Free 18-64 YRS Influenza Virus 2019-07-04 Completed Universit y of Vaccine 00:00:00 [facility] Influenza Virus 2019-07-04 Completed Universit y of Vaccine Recomb Quad 00:00:00 [place] [facility] IM, Preserv and ABX Branc h Free 18-64 YRS Influenza Virus 2019-07-04 Completed Universit y of Vaccine 00:00:00 [facility] Influenza Virus 2019-07-04 Completed Universit y of Vaccine Recomb Quad 00:00:00 [place] [facility], Preserv and ABX Branc h Free 18-64 YRS Influenza Virus 2019-07-04 Completed Universit y of Vaccine 00:00:00 [facility] Influenza Virus 2019-07-04 Completed Universit y of Vaccine Recomb Quad 00:00:00 [place] [facility] IM, Preserv and ABX Branc h Free 18-64 YRS Influenza Virus 2019-07-04 Completed Universit y of Vaccine 00:00:00 [facility] Influenza Virus 2019-07-04 Completed Universit y of Vaccine Recomb Quad 00:00:00 [place] [facility], Preserv and ABX Branc h Free 18-64 YRS Influenza Virus 2019-07-04 Completed Universit y of Vaccine 00:00:00 [facility] Influenza Virus 2019-07-04 Completed Universit y of Vaccine Recomb Quad 00:00:00 [place] [facility], Preserv and ABX Branc h Free 18-64 YRS Influenza Virus 2019-07-04 Completed Universit y of Vaccine 00:00:00 [facility] Influenza Virus 2019-07-04 Completed Universit y of Vaccine Recomb Quad 00:00:00 [place] [facility], Preserv and ABX Branc h Free 18-64 YRS Influenza Virus 2019-07-04 Completed Universit y of Vaccine 00:00:00 [facility] Influenza Virus 2019-07-04 Completed Universit y of Vaccine Recomb Quad 00:00:00 [place] [facility], Preserv and ABX Branc h Free 18-64 YRS Influenza Virus 2019-07-04 Completed Universit y of Vaccine 00:00:00 [facility] Influenza Virus 2019-07-04 Completed Universit y of Vaccine Recomb Quad 00:00:00 [place] [facility], Preserv and ABX Branc h Free 18-64 YRS Influenza Virus 2019-07-04 Completed Universit y of Vaccine 00:00:00 [facility] Influenza Virus 2019-07-04 Completed [facility]it y of Vaccine Recomb Quad 00:00:00 [place] [facility], Preserv and ABX Branc h Free 18-64 YRS Influenza Virus 2019-07-04 Completed Universit y of Vaccine 00:00:00 [facility] Influenza Virus 2019-07-04 Completed Universit y of Vaccine Recomb Quad 00:00:00 [place] [facility], Preserv and ABX Branc h Free 18-64 YRS Influenza Virus 2019-07-04 Completed Universit y of Vaccine 00:00:00 [facility] Influenza Virus 2019-07-04 Completed [facility]it y of Vaccine Recomb Quad 00:00:00 [place] [facility], Preserv and ABX Branc h Free 18-64 YRS Influenza Virus 2019-07-04 Completed Universit y of Vaccine 00:00:00 [facility] Influenza Virus 2019-07-04 Completed Universit y of Vaccine Recomb Quad 00:00:00 [place] [facility], Preserv and ABX Branc h Free 18-64 YRS Influenza Virus 2019-07-04 Completed Universit y of Vaccine 00:00:00 [facility] Influenza Virus 2019-07-04 Completed Universit y of Vaccine Recomb Quad 00:00:00 [place] [facility], Preserv and ABX Branc h Free 18-64 YRS Influenza Virus 2019-07-04 Completed Universit y of Vaccine 00:00:00 [facility] Influenza Virus 2019-07-04 Completed Universit y of Vaccine Recomb Quad 00:00:00 [place] [facility], Preserv and ABX Branc h Free 18-64 YRS Influenza Virus 2019-07-04 Completed Universit y of Vaccine 00:00:00 [facility] Influenza Virus 2019-07-04 Completed [facility]it y of Vaccine Recomb Quad 00:00:00 [place] [facility], Preserv and ABX Branc h Free 18-64 YRS Influenza Virus 2019-07-04 Completed Universit y of Vaccine 00:00:00 [facility] Influenza Virus 2019-07-04 Completed [facility]it y of Vaccine Recomb Quad 00:00:00 [place] [facility], Preserv and ABX Branc h Free 18-64 YRS Influenza Virus 2019-07-04 Completed Universit y of Vaccine 00:00:00 [facility] Influenza Virus 2019-07-04 Completed Universit y of Vaccine Recomb Quad 00:00:00 [place] [facility], Preserv and ABX Branc h Free 18-64 YRS Influenza Virus 2019-07-04 Completed Universit y of Vaccine 00:00:00 [facility] Influenza Virus 2019-07-04 Completed Universit y of Vaccine Recomb Quad 00:00:00 [place] [facility], Preserv and ABX Branc h Free 18-64 YRS Influenza Virus 2019-07-04 Completed Universit y of Vaccine 00:00:00 [facility] Influenza Virus 2019-07-04 Completed [facility]it y of Vaccine Recomb Quad 00:00:00 [place] [facility], Preserv and ABX Branc h Free 18-64 YRS Influenza Virus 2019-07-04 Completed Universit y of Vaccine 00:00:00 [facility] Influenza Virus 2019-07-04 Completed [facility]it y of Vaccine Recomb Quad 00:00:00 [place] [facility], Preserv and ABX Branc h Free 18-64 YRS Influenza Virus 2019-07-04 Completed Universit y of Vaccine 00:00:00 [facility] Influenza Virus 2019-07-04 Completed [facility]it y of Vaccine Recomb Quad 00:00:00 [place] [facility], Preserv and ABX Branc h Free 18-64 YRS Influenza Virus 2019-07-04 Completed [facility]it y of Vaccine 00:00:00 [facility] Influenza Virus 2019-07-04 Completed [facility]it y of Vaccine Recomb Quad 00:00:00 [place] [facility], Preserv and ABX Branc h Free 18-64 YRS Influenza Virus 2019-07-04 Completed [facility]it y of Vaccine 00:00:00 [facility] Influenza Virus 2019-07-04 Completed [facility]it y of Vaccine Recomb Quad 00:00:00 [place] [facility], Preserv and ABX Branc h Free 18-64 YRS Influenza Virus 2019-07-04 Completed [facility]it y of Vaccine 00:00:00 [facility] Influenza Virus 2019-07-04 Completed [facility]it y of Vaccine Recomb Quad 00:00:00 [place] [facility], Preserv and ABX Branc h Free 18-64 YRS Influenza Virus 2019-07-04 Completed [facility]it y of Vaccine 00:00:00 [facility] Influenza Virus 2019-07-04 Completed [facility]it y of Vaccine Recomb Quad 00:00:00 [place] [facility], Preserv and ABX Branc h Free 18-64 YRS Influenza Virus 2019-07-04 Completed [facility]it y of Vaccine 00:00:00 [facility] Influenza Virus 2019-07-04 Completed [facility]it y of Vaccine Recomb Quad 00:00:00 [place] [facility], Preserv and ABX Branc h Free 18-64 YRS Influenza Virus 2019-07-04 Completed [facility]it y of Vaccine 00:00:00 [facility] Influenza Virus 2019-07-04 Completed [facility]it y of Vaccine Recomb Quad 00:00:00 [place] [facility], Preserv and ABX Branc h Free 18-64 YRS Influenza Virus 2019-07-04 Completed [facility]it y of Vaccine 00:00:00 [facility] Influenza Virus 2019-07-04 Completed [facility]it y of Vaccine Recomb Quad 00:00:00 [place] [facility], Preserv and ABX Branc h Free 18-64 YRS Influenza Virus 2019-07-04 Completed [facility]it y of Vaccine 00:00:00 [facility] Influenza Virus 2019-07-04 Completed [facility]it y of Vaccine Recomb Quad 00:00:00 [place] [facility], Preserv and ABX Branc h Free 18-64 YRS Influenza Virus 2019-07-04 Completed [facility]it y of Vaccine 00:00:00 [facility] Influenza Virus 2019-07-04 Completed [facility]it y of Vaccine Recomb Quad 00:00:00 [facility], Preserv and ABX Branc h Free 18-64 YRS Influenza Virus 2019-07-04 Completed [facility]:00[facility]00 [facility] Influenza Virus 2019-07-04 Completed [facility] 00:00:00 [facility], Preserv and ABX Branc h Free 18-64 YRS Influenza Virus 2019-07-04 Completed [facility] 00:00:00 [facility] Influenza Virus 2019-07-04 Completed [facility] 00:00:00 [facility], Preserv and ABX Branc h Free 18-64 YRS Influenza Virus 2019-07-04 Completed [facility] Vaccine 00:00:00 [facility] Influenza Virus 2019-07-04 Completed [facility]ine [facility] 00:00:00 [facility], Preserv and ABX Branc h Free 18-64 YRS Influenza Virus 2019-07-04 Completed [facility]ine 00:00:00 [facility] Influenza Virus 2019-07-04 Completed [facility] Vaccine [facility] 00:00:00 [facility], Preserv and ABX Branc h Free 18-64 YRS Influenza Virus 2019-07-04 Completed [facility]ine 00:00:00 [facility] Influenza Virus 2019-07-04 Completed [facility]ine [facility] 00:00:00 [facility], Preserv and ABX Branc h Free 18-64 YRS Influenza Virus 2019-07-04 Completed [facility] Vaccine 00:00:00 [facility] Influenza Virus 2019-07-04 Completed [facility] Vaccine [facility] 00:00:00 [facility], Preserv and ABX Branc h Free 18-64 YRS Influenza Virus 2019-07-04 Completed [facility]ine 00:00:00 [facility] Influenza Virus 2019-07-04 Completed [facility]ine [facility] 00:00:00 [facility], Preserv and ABX Branc h Free 18-64 YRS Influenza Virus 2019-07-04 Completed [facility] Vaccine 00:00:00 [facility] Influenza Virus 2019-07-04 Completed [facility]ine [facility] 00:00:00 [facility], Preserv and ABX Branc h Free 18-64 YRS Influenza Virus 2019-07-04 Completed [facility] Vaccine 00:00:00 [facility] Influenza Virus 2019-07-04 Completed [facility] Vaccine [facility] 00:00:00 [facility], Preserv and ABX Branc h Free 18-64 YRS Influenza Virus 2019-07-04 Completed [facility] Vaccine 00:00:00 [facility] Influenza Virus 2019-07-04 Completed [facility] Vaccine [facility] 00:00:00 [facility], Preserv and ABX Branc h Free 18-64 YRS Influenza Virus 2019-07-04 Completed [facility] Vaccine 00:00:00 [facility] Influenza Virus 2019-07-04 Completed [facility] Vaccine [facility] 00:00:00 [facility], Preserv and ABX Branc h Free 18-64 YRS Influenza Virus 2019-07-04 Completed [facility]ine 00:00:00 [facility] Influenza Virus 2019-07-04 Completed [facility]ine [facility] 00:00:00 [facility], Preserv and ABX Branc h Free 18-64 YRS Influenza Virus 2019-07-04 Completed [facility] Vaccine 00:00:00 [facility] Influenza Virus 2019-07-04 Completed [facility]ine [facility] 00:00:00 [facility], Preserv and ABX Branc h Free 18-64 YRS Influenza Virus 2019-07-04 Completed [facility] Vaccine 00:00:00 [facility] Influenza Virus 2019-07-04 Completed [facility]ine [facility] 00:00:00 [facility], Preserv and ABX Branc h Free 18-64 YRS Influenza Virus 2019-07-04 Completed [facility] Vaccine 00:00:00 [facility] Influenza Virus 2019-07-04 Completed [facility]ine [facility] 00:00:00 [facility], Preserv and ABX Branc h Free 18-64 YRS Influenza Virus 2019-07-04 Completed [facility] Vaccine 00:00:00 [facility] Influenza Virus 2019-07-04 Completed [facility]ine [facility] 00:00:00 [facility], Preserv and ABX Branc h Free 18-64 YRS Influenza Virus 2019-07-04 Completed [facility] Vaccine 00:00:00 [facility] Influenza Virus 2019-07-04 Completed [facility]ine [facility] 00:00:00 [facility], Preserv and ABX Branc h Free 18-64 YRS Influenza Virus 2019-07-04 Completed [facility]ine 00:00:00 [facility] Influenza Virus 2019-07-04 Completed [facility]ine [facility] 00:00:00 [facility], Preserv and ABX Branc h Free 18-64 YRS Influenza Virus 2019-07-04 Completed [facility] Vaccine 00:00:00 [facility] Influenza Virus 2019-07-04 Completed [facility]ine [facility] 00:00:00 [facility], Preserv and ABX Branc h Free 18-64 YRS Influenza Virus 2019-07-04 Completed [facility] Vaccine 00:00:00 [facility] Influenza Virus 2019-07-04 Completed [facility]ine [facility] 00:00:00 [facility], Preserv and ABX Branc h Free 18-64 YRS Influenza Virus 2019-07-04 Completed [facility] Vaccine 00:00:00 [facility] Influenza Virus 2019-07-04 Completed [facility]ine [facility] 00:00:00 [facility], Preserv and ABX Branc h Free 18-64 YRS Influenza Virus 2019-07-04 Completed [facility] Vaccine 00:00:00 [facility] Influenza Virus 2019-07-04 Completed [facility] Vaccine [facility] 00:00:00 [facility], Preserv and ABX Branc h Free 18-64 YRS Influenza Virus 2019-07-04 Completed [facility] Vaccine 00:00:00 [facility] Influenza Virus 2019-07-04 Completed [facility]ine [facility] 00:00:00 [facility], Preserv and ABX Branc h Free 18-64 YRS Influenza Virus 2019-07-04 Completed [facility]ine 00:00:00 [facility] Influenza Virus 2019-07-04 Completed [facility] Vaccine [facility] 00:00:00 [facility], Preserv and ABX Branc h Free 18-64 YRS Influenza Virus 2019-07-04 Completed [facility] Vaccine 00:00:00 [facility] Influenza Virus 2019-07-04 Completed [facility]ine [facility] 00:00:00 [facility], Preserv and ABX Branc h Free 18-64 YRS Influenza Virus 2019-07-04 Completed [facility] Vaccine 00:00:00 [facility] Influenza Virus 2019-07-04 Completed [facility]ine [facility] 00:00:00 [facility], Preserv and ABX Branc h Free 18-64 YRS Influenza Virus 2019-07-04 Completed [facility] Vaccine 00:00:00 [facility] Influenza Virus 2019-07-04 Completed [facility]ine [facility] 00:00:00 [facility], Preserv and ABX Branc h Free 18-64 YRS Influenza Virus 2019-07-04 Completed [facility] Vaccine 00:00:00 [facility] Influenza Virus 2019-07-04 Completed [facility] Vaccine [facility] 00:00:00 [facility], Preserv and ABX Branc h Free 18-64 YRS Influenza Virus 2019-07-04 Completed [facility]ine 00:00:00 [facility] Influenza Virus 2019-07-04 Completed [facility]ine [facility] 00:00:00 [facility], Preserv and ABX Branc h Free 18-64 YRS Influenza Virus 2019-07-04 Completed [facility] Vaccine 00:00:00 [facility] Influenza Virus 2019-07-04 Completed [facility]ine [facility] 00[facility]00:00 [facility], Preserv and ABX Branc h Free 18-64 YRS Influenza Virus 2019-07-04 Completed [facility] Vaccine 00:00:00 [facility] Influenza Virus 2019-07-04 Completed [facility]ine [facility] 00:00:00 [facility], Preserv and ABX Branc h Free 18-64 YRS Influenza Virus 2019-07-04 Completed [facility] Vaccine 00:00:00 [facility] Influenza Virus 2019-07-04 Completed [facility]ine [facility] 00:00:00 [facility], Preserv and ABX Branc h Free 18-64 YRS Influenza Virus 2019-07-04 Completed [facility] Vaccine 00:00:00 [facility] Influenza Virus 2019-07-04 Completed [facility]ine [facility] 00:00:00 [facility], Preserv and ABX Branc h Free 18-64 YRS Influenza Virus 2019-07-04 Completed [facility]ine 00:00:00 [facility] Influenza Virus 2019-07-04 Completed [facility]ine [facility] 00:00:00 [facility], Preserv and ABX Branc h Free 18-64 YRS Influenza Virus 2019-07-04 Completed [facility]ine 00:00:00 [facility] Influenza Virus 2019-07-04 Completed [facility]ine [facility] 00:00:00 [facility], Preserv and ABX Branc h Free 18-64 YRS Influenza Virus 2019-07-04 Completed [facility] Vaccine 00:00:00 [facility] Influenza Virus 2019-07-04 Completed [facility]ine [facility] 00:00:00 [facility], Preserv and ABX Branc h Free 18-64 YRS Influenza Virus 2019-07-04 Completed [facility]ine 00:00:00 [facility] Influenza Virus 2019-07-04 Completed [facility]ine [facility] 00:00:00 [facility], Preserv and ABX Branc h Free 18-64 YRS Influenza Virus 2019-07-04 Completed [facility] Vaccine 00:00:00 [facility] Influenza Virus 2019-07-04 Completed [facility]ine [facility] 00:00:00 [facility], Preserv and ABX Branc h Free 18-64 YRS Influenza Virus 2019-07-04 Completed [facility] Vaccine 00:00:00 [facility] Influenza Virus 2019-07-04 Completed [facility]ine [facility] 00:00:00 [facility], Preserv and ABX Branc h Free 18-64 YRS Influenza Virus 2019-07-04 Completed [facility] Vaccine 00:00:00 [facility] Influenza Virus 2019-07-04 Completed [facility]ine [facility] 00:00:00 [facility], Preserv and ABX Branc h Free 18-64 YRS Influenza Virus 2019-07-04 Completed [facility] Vaccine 00:00:00 [facility] Influenza Virus 2019-07-04 Completed [facility]ine [facility] 00:00:00 [facility], Preserv and ABX Branc h Free 18-64 YRS Influenza Virus 2019-07-04 Completed [facility] Vaccine 00:00:00 [facility] Influenza Virus 2019-07-04 Completed [facility]ine [facility] 00:00:00 [facility], Preserv and ABX Branc h Free 18-64 YRS Influenza Virus 2019-07-04 Completed [facility] Vaccine 00:00:00 [facility] Influenza Virus 2019-07-04 Completed [facility] Vaccine [facility] 00:00:00 [facility], Preserv and ABX Branc h Free 18-64 YRS Influenza Virus 2019-07-04 Completed [facility] Vaccine 00:00:00 [facility] Influenza Virus 2019-07-04 Completed [facility] Vaccine [facility] 00:00:00 [facility], Preserv and ABX Branc h Free 18-64 YRS Influenza Virus 2019-07-04 Completed [facility] Vaccine 00:00:00 [facility] Influenza Virus 2019-07-04 Completed [facility] Vaccine [facility] 00:00:00 [facility], Preserv and ABX Branc h Free 18-64 YRS Influenza Virus 2019-07-04 Completed [facility] Vaccine 00:00:00 [facility] Influenza Virus 2019-07-04 Completed [facility] Vaccine [facility] 00:00:00 [facility], Preserv and ABX Branc h Free 18-64 YRS Influenza Virus 2019-07-04 Completed [facility] Vaccine 00:00:00 [facility] Influenza Virus 2019-07-04 Completed [facility] Vaccine [facility] 00:00:00 [facility], Preserv and ABX Branc h Free 18-64 YRS Influenza Virus 2019-07-04 Completed [facility] Vaccine 00:00:00 [facility] Influenza Virus 2019-07-04 Completed [facility] Vaccine [facility] 00:00:00 [facility], Preserv and ABX Branc h Free 18-64 YRS Influenza Virus 2019-07-04 Completed [facility] Vaccine 00:00:00 [facility] Influenza Virus 2019-07-04 Completed [facility] Vaccine [facility] 00:00:00 [facility], Preserv and ABX Branc h Free 18-64 YRS Influenza Virus 2019-07-04 Completed [facility] Vaccine 00:00:00 [facility] Influenza Virus 2019-07-04 Completed [facility]ine [facility] 00:00:00 [facility], Preserv and ABX Branc h Free 18-64 YRS Influenza Virus 2018-06-30 Completed [facility] Vaccine Quad IM 3+ 00:00:00 [facility] Influenza Virus 2018-06-30 Completed [facility] Vaccine Quad IM 3+ 00:00:00 [facility] Influenza Virus 2018-06-30 Completed [facility] Vaccine Quad IM 3+ 00:00:00 [facility] Influenza Virus 2018-06-30 Completed [facility] Vaccine Quad IM 3+ 00:00:00 [facility] Influenza Virus 2018-06-30 Completed [facility] Vaccine Quad IM 3+ 00:00:00 [facility] Influenza Virus 2018-06-30 Completed [facility] Vaccine Quad IM 3+ 00:00:00 [facility] Influenza Virus 2018-06-30 Completed [facility] Vaccine Quad IM 3+ 00:00:00 [facility] Influenza Virus 2018-06-30 Completed [facility] Vaccine Quad IM 3+ 00:00:00 [facility] Influenza Virus 2018-06-30 Completed [facility] Vaccine Quad IM 3+ 00:00:00 [facility] Influenza Virus 2018-06-30 Completed [facility] Vaccine Quad IM 3+ 00:00:00 [facility] Influenza Virus 2018-06-30 Completed [facility] Vaccine Quad IM 3+ 00:00:00 [facility] Influenza Virus 2018-06-30 Completed [facility] Vaccine Quad IM 3+ 00:00:00 [facility] Influenza Virus 2018-06-30 Completed [facility] Vaccine Quad IM 3+ 00:00:00 [facility] Influenza Virus 2018-06-30 Completed [facility] Vaccine Quad IM 3+ 00:00:00 [facility] Influenza Virus 2018-06-30 Completed [facility] Vaccine Quad IM 3+ 00:00:00 [facility] Influenza Virus 2018-06-30 Completed [facility] Vaccine Quad IM 3+ 00:00:00 [facility] Influenza Virus 2018-06-30 Completed [facility] Vaccine Quad IM 3+ 00:00:00 [facility] Influenza Virus 2018-06-30 Completed [facility] Vaccine Quad IM 3+ 00:00:00 [facility] Influenza Virus 2018-06-30 Completed [facility] Vaccine Quad IM 3+ 00:00:00 [facility] Influenza Virus 2018-06-30 Completed [facility] Vaccine Quad IM 3+ 00:00:00 [facility] Influenza Virus 2018-06-30 Completed [facility] Vaccine Quad IM 3+ 00:00:00 [facility] Influenza Virus 2018-06-30 Completed [facility] Vaccine Quad IM 3+ 00:00:00 [facility] Influenza Virus 2018-06-30 Completed [facility] Vaccine Quad IM 3+ 00:00:00 [facility] Influenza Virus 2018-06-30 Completed [facility] Vaccine Quad IM 3+ 00:00:00 [facility] Influenza Virus 2018-06-30 Completed [facility] Vaccine Quad IM 3+ 00:00:00 [facility] Influenza Virus 2018-06-30 Completed [facility] Vaccine Quad IM 3+ 00:00:00 [facility] Influenza Virus 2018-06-30 Completed [facility] Vaccine Quad IM 3+ 00:00:00 [facility] Influenza Virus 2018-06-30 Completed [facility] Vaccine Quad IM 3+ 00:00:00 [facility] Influenza Virus 2018-06-30 Completed [facility] Vaccine Quad IM 3+ 00:00:00 [facility] Influenza Virus 2018-06-30 Completed [facility] Vaccine Quad IM 3+ 00:00:00 [facility] Influenza Virus 2018-06-30 Completed [facility] Vaccine Quad IM 3+ 00:00:00 [facility] Influenza Virus 2018-06-30 Completed [facility] Vaccine Quad IM 3+ 00:00:00 [facility] Influenza Virus 2018-06-30 Completed [facility] Vaccine Quad IM 3+ 00:00:00 [facility] Influenza Virus 2018-06-30 Completed [facility] Vaccine Quad IM 3+ 00:00:00 [facility] Influenza Virus 2018-06-30 Completed [facility] Vaccine Quad IM 3+ 00:00:00 [facility] Influenza Virus 2018-06-30 Completed [facility] Vaccine Quad IM 3+ 00:00:00 [facility] Influenza Virus 2018-06-30 Completed [facility] Vaccine Quad IM 3+ 00:00:00 [facility] Influenza Virus 2018-06-30 Completed [facility] Vaccine Quad IM 3+ 00:00:00 [facility] Influenza Virus 2018-06-30 Completed [facility] Vaccine Quad IM 3+ 00:00:00 [facility] Influenza Virus 2018-06-30 Completed [facility] Vaccine Quad IM 3+ 00:00:00 [facility] Influenza Virus 2018-06-30 Completed [facility] Vaccine Quad IM 3+ 00:00:00 [facility] Influenza Virus 2018-06-30 Completed [facility] Vaccine Quad IM 3+ 00:00:00 [facility] Influenza Virus 2018-06-30 Completed [facility] Vaccine Quad IM 3+ 00:00:00 [facility] Influenza Virus 2018-06-30 Completed [facility] Vaccine Quad IM 3+ 00:00:00 [facility] Influenza Virus 2018-06-30 Completed [facility] Vaccine Quad IM 3+ 00:00:00 [facility] Influenza Virus 2018-06-30 Completed [facility] Vaccine Quad IM 3+ 00:00:00 [facility] Influenza Virus 2018-06-30 Completed [facility] Vaccine Quad IM 3+ 00:00:00 [facility] Influenza Virus 2018-06-30 Completed [facility] Vaccine Quad IM 3+ 00:00:00 [facility] Influenza Virus 2018-06-30 Completed [facility] Vaccine Quad IM 3+ 00:00:00 [facility] Influenza Virus 2018-06-30 Completed [facility] Vaccine Quad IM 3+ 00:00:00 [facility] Influenza Virus 2018-06-30 Completed [facility] Vaccine Quad IM 3+ 00:00:00 [facility] Influenza Virus 2018-06-30 Completed [facility] Vaccine Quad IM 3+ 00:00:00 [facility] Influenza Virus 2018-06-30 Completed [facility] Vaccine Quad IM 3+ 00:00:00 [facility] Influenza Virus 2018-06-30 Completed [facility] Vaccine Quad IM 3+ 00:00:00 [facility] Influenza Virus 2018-06-30 Completed [facility] Vaccine Quad IM 3+ 00:00:00 [facility] Influenza Virus 2018-06-30 Completed [facility] Vaccine Quad IM 3+ 00:00:00 [facility] Influenza Virus 2018-06-30 Completed [facility] Vaccine Quad IM 3+ 00:00:00 [facility] Influenza Virus 2018-06-30 Completed [facility] Vaccine Quad IM 3+ 00:00:00 [facility] Influenza Virus 2018-06-30 Completed [facility] Vaccine Quad IM 3+ 00:00:00 [facility] Influenza Virus 2018-06-30 Completed [facility] Vaccine Quad IM 3+ 00:00:00 [facility] Influenza Virus 2018-06-30 Completed [facility] Vaccine Quad IM 3+ 00:00:00 [facility] Influenza Virus 2018-06-30 Completed [facility] Vaccine Quad IM 3+ 00:00:00 [facility] Influenza Virus 2018-06-30 Completed [facility] Vaccine Quad IM 3+ 00:00:00 [facility] Influenza Virus 2018-06-30 Completed [facility] Vaccine Quad IM 3+ 00:00:00 [facility] Influenza Virus 2018-06-30 Completed [facility] Vaccine Quad IM 3+ 00:00:00 [facility] Influenza Virus 2018-06-30 Completed [facility] Vaccine Quad IM 3+ 00:00:00 [facility] Influenza Virus 2018-06-30 Completed [facility] Vaccine Quad IM 3+ 00:00:00 [facility] Influenza Virus 2018-06-30 Completed [facility] Vaccine Quad IM 3+ 00:00:00 [facility] Influenza Virus 2018-06-30 Completed [facility] Vaccine Quad IM 3+ 00:00:00 [facility] Influenza Virus 2018-06-30 Completed [facility] Vaccine Quad IM 3+ 00:00:00 [facility] Influenza Virus 2018-06-30 Completed [facility] Vaccine Quad IM 3+ 00:00:00 [facility] Influenza Virus 2018-06-30 Completed [facility] Vaccine Quad IM 3+ 00:00:00 [facility] Influenza Virus 2018-06-30 Completed [facility] Vaccine Quad IM 3+ 00:00:00 [facility] Influenza Virus 2018-06-30 Completed [facility] Vaccine Quad IM 3+ 00:00:00 [facility] Influenza Virus 2018-06-30 Completed [facility] Vaccine Quad IM 3+ 00:00:00 [facility] Influenza Virus 2018-06-30 Completed [facility] Vaccine Quad IM 3+ 00:00:00 [facility] Influenza Virus 2018-06-30 Completed [facility] Vaccine Quad IM 3+ 00:00:00 [facility] Influenza Virus 2018-06-30 Completed [facility] Vaccine Quad IM 3+ 00:00:00 [facility] Influenza Virus 2018-06-30 Completed [facility] Vaccine Quad IM 3+ 00:00:00 [facility] Influenza Virus 2018-06-30 Completed [facility] Vaccine Quad IM 3+ 00:00:00 [facility] Influenza Virus 2018-06-30 Completed [facility] Vaccine Quad IM 3+ 00:00:00 [facility] Influenza Virus 2018-06-30 Completed [facility] Vaccine Quad IM 3+ 00:00:00 [facility] Influenza Virus 2018-06-30 Completed [facility] Vaccine Quad IM 3+ 00:00:00 [facility] Influenza Virus 2018-06-30 Completed [facility] Vaccine Quad IM 3+ 00:00:00 [facility] Influenza Virus 2018-06-30 Completed [facility] Vaccine Quad IM 3+ 00:00:00 [facility] Influenza Virus 2018-06-30 Completed [facility] Vaccine Quad IM 3+ 00:00:00 [facility] Influenza Virus 2018-06-30 Completed [facility] Vaccine Quad IM 3+ 00:00:00 [facility] Influenza Virus 2018-06-30 Completed [facility] Vaccine Quad IM 3+ 00:00:00 [facility] Influenza Virus 2018-06-30 Completed [facility] Vaccine Quad IM 3+ 00:00:00 [facility] Influenza Virus 2018-06-30 Completed [facility] Vaccine Quad IM 3+ 00:00:00 [facility] Influenza Virus 2018-06-30 Completed [facility] Vaccine Quad IM 3+ 00:00:00 [facility] Influenza Virus 2018-06-30 Completed [facility] Vaccine Quad IM 3+ 00:00:00 [facility] Influenza Virus 2018-06-30 Completed [facility] Vaccine Quad IM 3+ 00:00:00 [facility] Influenza Virus 2018-06-30 Completed [facility] Vaccine Quad IM 3+ 00:00:00 [facility] Influenza Virus 2018-06-30 Completed [facility] Vaccine Quad IM 3+ 00:00:00 [facility] Influenza Virus 2018-06-30 Completed [facility] Vaccine Quad IM 3+ 00:00:00 [facility] Influenza Virus 2018-06-30 Completed [facility] Vaccine Quad IM 3+ 00:00:00 [facility] Influenza Virus 2018-06-30 Completed [facility] Vaccine Quad IM 3+ 00:00:00 [facility] Influenza Virus 2018-06-30 Completed [facility] Vaccine Quad IM 3+ 00:00:00 [facility] Influenza Virus 2018-06-30 Completed [facility] Vaccine Quad IM 3+ 00:00:00 [facility] Influenza Virus 2018-06-30 Completed [facility] Vaccine Quad IM 3+ 00:00:00 [facility] Influenza Virus 2018-06-30 Completed [facility] Vaccine [facility] IM 3+ 00:00:00 [facility] Influenza Virus 2018-06-30 Completed [facility] Vaccine Quad IM 3+ 00:00:00 [facility] Influenza Virus 2018-06-30 Completed [facility] Vaccine Quad IM 3+ 00:00:00 [facility] Influenza Virus 2018-06-30 Completed [facility] Vaccine Quad IM 3+ 00:00:00 [facility] Influenza Virus 2018-06-30 Completed [facility] Vaccine Quad IM 3+ 00:00:00 [facility] Influenza Virus 2018-06-30 Completed [facility] Vaccine Quad IM 3+ 00:00:00 [facility] Influenza Virus 2018-06-30 Completed [facility] Vaccine Quad IM 3+ 00:00:00 [facility] Influenza Virus 2018-06-30 Completed [facility] Vaccine Quad IM 3+ 00:00:00 [facility] Influenza Virus 2018-06-30 Completed [facility] Vaccine Quad IM 3+ 00:00:00 [facility] Influenza Virus 2018-06-30 Completed [facility] Vaccine Quad IM 3+ 00:00:00 [facility] Influenza Virus 2018-06-30 Completed [facility] Vaccine Quad IM 3+ 00:00:00 [facility] Influenza Virus 2018-06-30 Completed [facility] Vaccine Quad IM 3+ 00:00:00 [facility] Influenza Virus 2018-06-30 Completed [facility] Vaccine Quad IM 3+ 00:00:00 [facility] Influenza Virus 2018-06-30 Completed [facility] Vaccine Quad IM 3+ 00:00:00 [facility] Influenza Virus 2018-06-30 Completed [facility] Vaccine Quad IM 3+ 00:00:00 [facility] Influenza Virus 2018-06-30 Completed [facility] Vaccine Quad IM 3+ 00:00:00 [facility] Influenza Virus 2018-06-30 Completed [facility] Vaccine Quad IM 3+ 00:00:00 [facility] Influenza Virus 2018-06-30 Completed [facility] Vaccine Quad IM 3+ 00:00:00 [facility] Influenza Virus 2017-06-15 Completed [facility] of Vaccine Quad ID 18-64 00:00:00 [facility] Influenza Virus 2017-06-15 Completed [facility] of Vaccine Quad ID [id number] 00:00:00 [facility] Influenza Virus 2017-06-15 Completed [facility] of Vaccine Quad ID [id number] 00:00:00 [facility] Influenza Virus 2017-06-15 Completed [facility] of Vaccine Quad ID [id number] 00:00:00 [facility] Influenza Virus 2017-06-15 Completed [...] y of Conjugate, PCV13 00:00:00 [facility] dical (Prevnar 13) Branch Meningococcal B, OMV 2016-03-07 Completed [facility] ersity of 00:00:00 [facility] Pneumococcal 13 2016-03-07 Completed [facility] Conjugate, PCV13 00:00:00 [facility] dical (Prevnar 13) Branch Meningococcal B, OMV 2016-03-07 Completed [facility] ers[facility] of 00:00:00 [facility] Pneumococcal 13 2016-03-07 Completed [facility] Conjugate, PCV13 00:00:00 [place] [facility] (Prevnar 13) Branch Meningococcal B, V 2016-03-07 Completed [facility] 00:00:00 [facility] Pneumococcal 13 2016-03-07 Completed [facility] Conjugate, PCV13 00:00:00 [place] [facility] (Prevnar 13) Branch Meningococcal B, V 2016-03-07 Completed [facility] 00:00:00 [facility] Pneumococcal 13 2016-03-07 Completed [facility] Conjugate, PCV13 00:00:00 [place] [facility] (Prevnar 13) Branch Meningococcal B, [facility] 2016-03-07 Completed [facility] ers[facility] of 00:00:00 [facility] Pneumococcal 13 2016-03-07 Completed [facility] Conjugate, PCV13 00:00:00 [place] [facility] (Prevnar 13) Branch Meningococcal B, [facility] 2016-03-07 Completed [facility] 00:00:00 [facility] Pneumococcal 13 2016-03-07 Completed [facility] Conjugate, PCV13 00:00:00 [place] [facility] (Prevnar 13) Branch Meningococcal B, [facility] 2016-03-07 Completed [facility] of 00:00:00 [facility] Pneumococcal 13 2016-03-07 Completed [facility] Conjugate, PCV13 00:00:00 [place] [facility] (Prevnar 13) Branch Meningococcal B, [facility] 2016-03-07 Completed [facility] ers[facility] of 00:00:00 [facility] Pneumococcal 13 2016-03-07 Completed [facility] Conjugate, PCV13 00:00:00 [place] [facility] (Prevnar 13) Branch Meningococcal B, [facility] 2016-03-07 Completed [facility] ers[facility] of 00:00:00 [facility] Pneumococcal 13 2016-03-07 Completed [facility] Conjugate, PCV13 00:00:00 [place] [facility] (Prevnar 13) Branch Meningococcal B, [facility] 2016-03-07 Completed [facility] ers[facility] of 00:00:00 [facility] Pneumococcal 13 2016-03-07 Completed [facility] Conjugate, PCV13 00:00:00 [place] [facility] (Prevnar 13) Branch Meningococcal B, [facility] 2016-03-07 Completed [facility] ers[facility] of 00:00:00 [facility] Pneumococcal 13 2016-03-07 Completed [facility] Conjugate, PCV13 00:00:00 [place] [facility] (Prevnar 13) Branch Meningococcal B, V 2016-03-07 Completed [facility] ers[facility] of 00:00:00 [facility] Pneumococcal 13 2016-03-07 Completed [facility] of Conjugate, PCV13 00:00:00 [place] [facility] (Prevnar 13) Branch Meningococcal B, V 2016-03-07 Completed [facility] of 00:00:00 [facility] Pneumococcal 13 2016-03-07 Completed [facility] of Conjugate, PCV13 00:00:00 [place] [facility] (Prevnar 13) Branch Meningococcal B, V 2016-03-07 Completed [facility] of 00:00:00 [facility] Pneumococcal 13 2016-03-07 Completed [facility] of Conjugate, PCV13 00:00:00 [place] [facility] (Prevnar 13) Branch Meningococcal B, [facility] 2016-03-07 Completed [facility] ers[facility] of 00:00:00 [facility] Pneumococcal 13 2016-03-07 Completed [facility] of Conjugate, PCV13 00:00:00 [place] [facility] (Prevnar 13) Branch Meningococcal B, [facility] 2016-03-07 Completed [facility] ers[facility] of 00:00:00 [facility] Pneumococcal 13 2016-03-07 Completed [facility] of Conjugate, PCV13 00:00:00 [place] [facility] (Prevnar 13) Branch Meningococcal B, [facility] 2016-03-07 Completed [facility] ers[facility] of 00:00:00 [facility] Pneumococcal 13 2016-03-07 Completed [facility] of Conjugate, PCV13 00:00:00 [place] [facility] (Prevnar 13) Branch Meningococcal B, [facility] 2016-03-07 Completed [facility] ers[facility] of 00:00:00 [facility] Pneumococcal 13 2016-03-07 Completed [facility] Conjugate, PCV13 00:00:00 [place] [facility] (Prevnar 13) Branch Meningococcal B, [facility] 2016-03-07 Completed [facility] of 00:00:00 [facility] Pneumococcal 13 2016-03-07 Completed [facility] of Conjugate, PCV13 00:00:00 [place] [facility] (Prevnar 13) Branch Meningococcal B, [facility] 2016-03-07 Completed [facility] of 00:00:00 [facility] Pneumococcal 13 2016-03-07 Completed [facility] of Conjugate, PCV13 00:00:00 [place] [facility] (Prevnar 13) Branch Meningococcal B, V 2016-03-07 Completed [facility] of 00:00:00 [facility] Pneumococcal 13 2016-03-07 Completed [facility] of Conjugate, PCV13 00:00:00 [place] [facility] (Prevnar 13) Branch Meningococcal B, V 2016-03-07 Completed [facility] of 00:00:00 [facility] Pneumococcal 13 2016-03-07 Completed [facility] of Conjugate, PCV13 00:00:00 [place] [facility] (Prevnar 13) Branch Meningococcal B, V 2016-03-07 Completed [facility] of 00:00:00 [facility] Pneumococcal 13 2016-03-07 Completed [facility] of Conjugate, PCV13 00:00:00 [place] [facility] (Prevnar 13) Branch Meningococcal B, V 2016-03-07 Completed [facility] ers[facility] of 00:00:00 [facility] Pneumococcal 13 2016-03-07 Completed [facility] of Conjugate, PCV13 00:00:00 [place] [facility] (Prevnar 13) Branch Meningococcal B, [facility] 2016-03-07 Completed [facility] ers[facility] of 00:00:00 [facility] Pneumococcal 13 2016-03-07 Completed [facility] of Conjugate, PCV13 00:00:00 [place] [facility] (Prevnar 13) Branch Meningococcal B, [facility] 2016-03-07 Completed [facility] ers[facility] of 00:00:00 [facility] Pneumococcal 13 2016-03-07 Completed [facility] of Conjugate, PCV13 00:00:00 [place] [facility] (Prevnar 13) Branch Meningococcal B, [facility] 2016-03-07 Completed [facility] ers[facility] of 00:00:00 [facility] Pneumococcal 13 2016-03-07 Completed [facility] of Conjugate, PCV13 00:00:00 [place] [facility] (Prevnar 13) Branch Meningococcal B, [facility] 2016-03-07 Completed [facility] ers[facility] of 00:00:00 [facility] Pneumococcal 13 2016-03-07 Completed [facility] of Conjugate, PCV13 00:00:00 [place] [facility] (Prevnar 13) Branch Meningococcal B, [facility] 2016-03-07 Completed [facility] of 00:00:00 [facility] Pneumococcal 13 2016-03-07 Completed [facility] of Conjugate, PCV13 00:00:00 [place] [facility] (Prevnar 13) Branch Meningococcal B, V 2016-03-07 Completed [facility] of 00:00:00 [facility] Pneumococcal 13 2016-03-07 Completed [facility] of Conjugate, PCV13 00:00:00 [place] [facility] (Prevnar 13) Branch Meningococcal B, V 2016-03-07 Completed [facility] of 00:00:00 [facility] Pneumococcal 13 2016-03-07 Completed [facility] of Conjugate, PCV13 00:00:00 [place] [facility] (Prevnar 13) Branch Meningococcal B, V 2016-03-07 Completed [facility] ers[facility] of 00:00:00 [facility] Pneumococcal 13 2016-03-07 Completed [facility] of Conjugate, PCV13 00:00:00 [place] [facility] (Prevnar 13) Branch Meningococcal B, [facility] 2016-03-07 Completed [facility] ers[facility] of 00:00:00 [facility] Pneumococcal 13 2016-03-07 Completed [facility] of Conjugate, PCV13 00:00:00 [place] [facility] (Prevnar 13) Branch Meningococcal B, [facility] 2016-03-07 Completed [facility] ers[facility] of 00:00:00 [facility] Pneumococcal 13 2016-03-07 Completed [facility] of Conjugate, PCV13 00:00:00 [place] [facility] (Prevnar 13) Branch Meningococcal B, [facility] 2016-03-07 Completed [facility] ers[facility] of 00:00:00 [facility] Pneumococcal 13 2016-03-07 Completed [facility] of Conjugate, PCV13 00:00:00 [place] [facility] (Prevnar 13) Branch Meningococcal B, [facility] 2016-03-07 Completed [facility] ers[facility] of 00:00:00 [facility] Pneumococcal 13 2016-03-07 Completed [facility] of Conjugate, PCV13 00:00:00 [place] [facility] (Prevnar 13) Branch Meningococcal B, [facility] 2016-03-07 Completed [facility] ers[facility] of 00:00:00 [facility] Pneumococcal 13 2016-03-07 Completed [facility] of Conjugate, PCV13 00:00:00 [place] [facility] (Prevnar 13) Branch Meningococcal B, [facility] 2016-03-07 Completed [facility] ers[facility] of 00:00:00 [facility] Pneumococcal 13 2016-03-07 Completed [facility] of Conjugate, PCV13 00:00:00 [place] [facility] (Prevnar 13) Branch Meningococcal B, V 2016-03-07 Completed [facility] ers[facility] of 00:00:00 [facility] Pneumococcal 13 2016-03-07 Completed [facility] of Conjugate, PCV13 00:00:00 [place] [facility] (Prevnar 13) Branch Meningococcal B, V 2016-03-07 Completed [facility] ers[facility] of 00:00:00 [facility] Pneumococcal 13 2016-03-07 Completed [facility] of Conjugate, PCV13 00:00:00 [facility] dical (Prevnar 13) Branch Meningococcal B, [facility] 2016-03-07 Completed [facility] ers[facility] of 00:00:00 [facility] Pneumococcal 13 2016-03-07 Completed [facility] of Conjugate, PCV13 00:00:00 [place] [facility] (Prevnar 13) Branch Meningococcal B, [facility] 2016-03-07 Completed [facility] ers[facility] of 00:00:00 [facility] Pneumococcal 13 2016-03-07 Completed [facility] of Conjugate, PCV13 00:00:00 [facility] dical (Prevnar 13) Branch Meningococcal B, [facility] 2016-03-07 Completed [facility] ers[facility] of 00:00:00 [facility] Pneumococcal 13 2016-03-07 Completed [facility] of Conjugate, PCV13 00:00:00 [facility] dical (Prevnar 13) Branch Meningococcal B, [facility] 2016-03-07 Completed [facility] ers[facility] of 00:00:00 [facility] Pneumococcal 13 2016-03-07 Completed [facility] of Conjugate, PCV13 00:00:00 [facility] dical (Prevnar 13) Branch Meningococcal B, [facility] 2016-03-07 Completed [facility] ers[facility] of 00:00:00 [facility] Pneumococcal 13 2016-03-07 Completed [facility] of Conjugate, PCV13 00:00:00 [place] [facility] (Prevnar 13) Branch Meningococcal B, [facility] 2016-03-07 Completed [facility] ers[facility] of 00:00:00 [facility] Pneumococcal 13 2016-03-07 Completed [facility] of Conjugate, PCV13 00:00:00 [place] [facility] (Prevnar 13) Branch Meningococcal B, V 2016-03-07 Completed [facility] 00:00:00 [facility] Pneumococcal 13 2016-03-07 Completed [facility] of Conjugate, PCV13 00:00:00 [place] [facility] (Prevnar 13) Branch Meningococcal B, [facility] 2016-03-07 Completed [facility] ers[facility] of 00:00:00 [facility] Pneumococcal 13 2016-03-07 Completed [facility] of Conjugate, PCV13 00:00:00 [place] [facility] (Prevnar 13) Branch Meningococcal B, [facility] 2016-03-07 Completed [facility] ers[facility] of 00:00:00 [facility] Pneumococcal 13 2016-03-07 Completed [facility] of Conjugate, PCV13 00:00:00 [place] [facility] (Prevnar 13) Branch Meningococcal B, [facility] 2016-03-07 Completed [facility] ers[facility] of 00:00:00 [facility] Pneumococcal 13 2016-03-07 Completed [facility] of Conjugate, PCV13 00:00:00 [place] [facility] (Prevnar 13) Branch Meningococcal B, [facility] 2016-03-07 Completed [facility] of 00:00:00 [facility] Pneumococcal 13 2016-03-07 Completed [facility] of Conjugate, PCV13 00:00:00 [place] [facility] (Prevnar 13) Branch Meningococcal B, [facility] 2016-03-07 Completed [facility] ers[facility] of 00:00:00 [facility] Pneumococcal 13 2016-03-07 Completed [facility] of Conjugate, PCV13 00:00:00 [place] [facility] (Prevnar 13) Branch Meningococcal B, [facility] 2016-03-07 Completed [facility] ers[facility] of 00:00:00 [facility] Pneumococcal 13 2016-03-07 Completed [facility] of Conjugate, PCV13 00:00:00 [place] [facility] (Prevnar 13) Branch Meningococcal B, [facility] 2016-03-07 Completed [facility] ers[facility] of 00:00:00 [facility] Pneumococcal 13 2016-03-07 Completed [facility] of Conjugate, PCV13 00:00:00 [place] [facility] (Prevnar 13) Branch Meningococcal B, [facility] 2016-03-07 Completed [facility] ers[facility] of 00:00:00 [facility] Pneumococcal 13 2016-03-07 Completed [facility] of Conjugate, PCV13 00:00:00 [place] [facility] (Prevnar 13) Branch Meningococcal B, [facility] 2016-03-07 Completed [facility] ers[facility] of 00:00:00 [facility] Pneumococcal 13 2016-03-07 Completed [facility] of Conjugate, PCV13 00:00:00 [place] [facility] (Prevnar 13) Branch Meningococcal B, V 2016-03-07 Completed [facility] ers[facility] of 00:00:00 [facility] Pneumococcal 13 2016-03-07 Completed [facility] of Conjugate, PCV13 00:00:00 [place] [facility] (Prevnar 13) Branch Meningococcal B, [facility] 2016-03-07 Completed [facility] ers[facility] of 00:00:00 [facility] Pneumococcal 13 2016-03-07 Completed [facility] of Conjugate, PCV13 00:00:00 [place] [facility] (Prevnar 13) Branch Meningococcal B, [facility] 2016-03-07 Completed [facility] ers[facility] of 00:00:00 [facility] Pneumococcal 13 2016-03-07 Completed [facility] of Conjugate, PCV13 00:00:00 [place] [facility] (Prevnar 13) Branch Meningococcal B, [facility] 2016-03-07 Completed [facility] ers[facility] of 00:00:00 [facility] Pneumococcal 13 2016-03-07 Completed [facility] of Conjugate, PCV13 00:00:00 [place] [facility] (Prevnar 13) Branch Meningococcal B, [facility] 2016-03-07 Completed [facility] ers[facility] of 00:00:00 [facility] Pneumococcal 13 2016-03-07 Completed [facility] of Conjugate, PCV13 00:00:00 [place] [facility] (Prevnar 13) Branch Meningococcal B, [facility] 2016-03-07 Completed [facility] ers[facility] of 00:00:00 [facility] Pneumococcal 13 2016-03-07 Completed [facility] of Conjugate, PCV13 00:00:00 [place] [facility] (Prevnar 13) Branch Meningococcal B, [facility] 2016-03-07 Completed [facility] ers[facility] of 00:00:00 [facility] Pneumococcal 13 2016-03-07 Completed [facility] of Conjugate, PCV13 00:00:00 [place] [facility] (Prevnar 13) Branch Meningococcal B, [facility] 2016-03-07 Completed [facility] ers[facility] of 00:00:00 [facility] Pneumococcal 13 2016-03-07 Completed [facility] of Conjugate, PCV13 00:00:00 [place] [facility] (Prevnar 13) Branch Meningococcal B, [facility] 2016-03-07 Completed [facility] of 00:00:00 [facility] Pneumococcal 13 2016-03-07 Completed [facility] of Conjugate, PCV13 00:00:00 [place] [facility] (Prevnar 13) Branch Meningococcal B, [facility] 2016-03-07 Completed [facility] of 00:00:00 [facility] Pneumococcal 13 2016-03-07 Completed [facility] of Conjugate, PCV13 00:00:00 [place] [facility] (Prevnar 13) Branch Meningococcal B, [facility] 2016-03-07 Completed [facility] of 00:00:00 [facility] Pneumococcal 13 2016-03-07 Completed [facility] of Conjugate, PCV13 00:00:00 [place] [facility] (Prevnar 13) Branch Meningococcal B, [facility] 2016-03-07 Completed [facility] ers[facility] of 00:00:00 [facility] Pneumococcal 13 2016-03-07 Completed [facility] of Conjugate, PCV13 00:00:00 [facility] dical (Prevnar 13) Branch Meningococcal B, [facility] 2016-03-07 Completed [facility] ers[facility] of 00:00:00 [facility] Pneumococcal 13 2016-03-07 Completed [facility] of Conjugate, PCV13 00:00:00 [facility] dical (Prevnar 13) Branch Meningococcal B, [facility] 2016-03-07 Completed [facility] ers[facility] of 00:00:00 [facility] Pneumococcal 13 2016-03-07 Completed [facility] of Conjugate, PCV13 00:00:00 [place] [facility] (Prevnar 13) Branch Meningococcal B, [facility] 2016-03-07 Completed [facility] ers[facility] of 00:00:00 [facility] Pneumococcal 13 2016-03-07 Completed [facility] of Conjugate, PCV13 00:00:00 [facility] dical (Prevnar 13) Branch Meningococcal B, [facility] 2016-03-07 Completed [facility] ers[facility] of 00:00:00 [facility] Pneumococcal 13 2016-03-07 Completed [facility] of Conjugate, PCV13 00:00:00 [place] [facility] (Prevnar 13) Branch Meningococcal B, [facility] 2016-03-07 Completed [facility] of 00:00:00 [facility] Pneumococcal 13 2016-03-07 Completed [facility] of Conjugate, PCV13 00:00:00 [facility] dical (Prevnar 13) Branch Meningococcal B, [facility] 2016-03-07 Completed [facility] ers[facility] of 00:00:00 [facility] Pneumococcal 13 2016-03-07 Completed [facility] of Conjugate, PCV13 00:00:00 [place] [facility] (Prevnar 13) Branch Meningococcal B, [facility] 2016-03-07 Completed [facility] of 00:00:00 [facility] Pneumococcal 13 2016-03-07 Completed [facility] of Conjugate, PCV13 00:00:00 [place] [facility] (Prevnar 13) Branch Meningococcal B, [facility] 2016-03-07 Completed [facility] of 00:00:00 [facility] Pneumococcal 13 2016-03-07 Completed [facility] of Conjugate, PCV13 00:00:00 [place] [facility] (Prevnar 13) Branch Meningococcal B, [facility] 2016-03-07 Completed [facility] of 00:00:00 [facility] Pneumococcal 13 2016-03-07 Completed [facility] of Conjugate, PCV13 00:00:00 [place] [facility] (Prevnar 13) Branch Meningococcal B, [facility] 2016-03-07 Completed [facility] ers[facility] of 00:00:00 [facility] Pneumococcal 13 2016-03-07 Completed [facility] of Conjugate, PCV13 00:00:00 [place] [facility] (Prevnar 13) Branch Meningococcal B, [facility] 2016-03-07 Completed [facility] ers[facility] of 00:00:00 [facility] Pneumococcal 13 2016-03-07 Completed [facility] of Conjugate, PCV13 00:00:00 [place] [facility] (Prevnar 13) Branch Meningococcal B, [facility] 2016-03-07 Completed [facility] of 00:00:00 [facility] Pneumococcal 13 2016-03-07 Completed [facility] of Conjugate, PCV13 00:00:00 [place] [facility] (Prevnar 13) Branch Meningococcal B, [facility] 2016-03-07 Completed [facility] of 00:00:00 [facility] Pneumococcal 13 2016-03-07 Completed [facility] of Conjugate, PCV13 00:00:00 [place] [facility] (Prevnar 13) Branch Meningococcal B, [facility] 2016-03-07 Completed [facility] of 00:00:00 [facility] Pneumococcal 13 2016-03-07 Completed [facility] of Conjugate, PCV13 00:00:00 [place] [facility] (Prevnar 13) Branch Meningococcal B, [facility] 2016-03-07 Completed [facility] of 00:00:00 [facility] Pneumococcal 13 2016-03-07 Completed [facility] of Conjugate, PCV13 00:00:00 [place] [facility] (Prevnar 13) Branch Meningococcal B, V 2016-03-07 Completed [facility] 00:00:00 [facility] Pneumococcal 13 2016-03-07 Completed [facility] of Conjugate, PCV13 00:00:00 [place] [facility] (Prevnar 13) Branch Meningococcal B, V 2016-03-07 Completed [facility] 00:00:00 [facility] Pneumococcal 13 2016-03-07 Completed [facility] of Conjugate, PCV13 00:00:00 [place] [facility] (Prevnar 13) Branch Meningococcal B, V 2016-03-07 Completed [facility] 00:00:00 [facility] Pneumococcal 13 2016-03-07 Completed [facility] of Conjugate, PCV13 00:00:00 [place] [facility] (Prevnar 13) Branch Meningococcal B, V 2016-03-07 Completed [facility] 00:00:00 [facility] Pneumococcal 13 2016-03-07 Completed [facility] of Conjugate, PCV13 00:00:00 [place] [facility] (Prevnar 13) Branch Meningococcal B, [facility] 2016-03-07 Completed [facility] of 00:00:00 [facility] Pneumococcal 13 2016-03-07 Completed [facility] of Conjugate, PCV13 00:00:00 [place] [facility] (Prevnar 13) Branch Meningococcal B, [facility] 2016-03-07 Completed [facility] of 00:00:00 [facility] Pneumococcal 13 2016-03-07 Completed [facility] of Conjugate, PCV13 00:00:00 [place] [facility] (Prevnar 13) Branch Meningococcal B, V 2016-03-07 Completed [facility] 00:00:00 [facility] Pneumococcal 13 2016-03-07 Completed [facility] of Conjugate, PCV13 00:00:00 [place] [facility] (Prevnar 13) Branch Meningococcal B, [facility] 2016-03-07 Completed [facility] of 00:00:00 [facility] Pneumococcal 13 2016-03-07 Completed [facility] of Conjugate, PCV13 00:00:00 [place] [facility] (Prevnar 13) Branch Meningococcal B, V 2016-03-07 Completed [facility] 00:00:00 [facility] Pneumococcal 13 2016-03-07 Completed [facility] of Conjugate, PCV13 00:00:00 [facility] dical (Prevnar 13) Branch Meningococcal B, V 2016-03-07 Completed [facility] of 00:00:00 [facility] Pneumococcal 13 2016-03-07 Completed [facility] of Conjugate, PCV13 00:00:00 [place] [facility] (Prevnar 13) Branch Meningococcal B, V 2016-03-07 Completed [facility] 00:00:00 [facility] Pneumococcal 13 2016-03-07 Completed [facility] of Conjugate, PCV13 00:00:00 [place] [facility] (Prevnar 13) Branch Meningococcal B, V 2016-03-07 Completed [facility] 00:00:00 [facility] Pneumococcal 13 2016-03-07 Completed [facility] of Conjugate, PCV13 00:00:00 [place] [facility] (Prevnar 13) Branch Meningococcal B, V 2016-03-07 Completed [facility] 00:00:00 [facility] Pneumococcal 13 2016-03-07 Completed [facility] of Conjugate, PCV13 00:00:00 [place] [facility] (Prevnar 13) Branch Meningococcal B, [facility] 2016-03-07 Completed [facility] 00:00:00 [facility] Pneumococcal 13 2016-03-07 Completed [facility] of Conjugate, PCV13 00:00:00 [place] [facility] (Prevnar 13) Branch Meningococcal B, [facility] 2016-03-07 Completed [facility] of 00:00:00 [facility] Pneumococcal 13 2016-03-07 Completed Universit y of Conjugate, PCV13 00:00:00 [place] [facility] (Prevnar 13) Branch Meningococcal B, V 2016-03-07 Completed Univ ersity of 00:00:00 [facility] Pneumococcal 13 2016-03-07 Completed Universit y of Conjugate, PCV13 00:00:00 [place] [facility] (Prevnar 13) [facility] Meningococcal B, [facility] 2016-03-07 Completed Univ ersity of 00:00:00 [facility] Pneumococcal 13 2016-03-07 Completed Universit y of Conjugate, PCV13 00:00:00 [place] [facility] (Prevnar 13) Branch Meningococcal B, [facility] 2016-03-07 Completed Univ ersity of 00:00:00 [facility] Pneumococcal 13 2016-03-07 Completed Universit y of Conjugate, PCV13 00:00:00 [place] [facility] (Prevnar 13) Branch Meningococcal B, [facility] 2016-03-07 Completed Univ ersity of 00:00:00 [facility] Pneumococcal 13 2016-03-07 Completed Universit y of Conjugate, PCV13 00:00:00 [place] [facility] (Prevnar 13) Branch Meningococcal B, V 2016-03-07 Completed Univ ersity of 00:00:00 [facility] Pneumococcal 13 2016-03-07 Completed Universit y of Conjugate, PCV13 00:00:00 [place] [facility] (Prevnar 13) Branch Meningococcal B, V 2016-03-07 Completed Univ ersity of 00:00:00 [facility] Pneumococcal 13 2016-03-07 Completed Universit y of Conjugate, PCV13 00:00:00 [place] [facility] (Prevnar 13) Branch Meningococcal B, [facility] 2016-03-07 Completed Univ ersity of 00:00:00 [facility] Pneumococcal 13 2016-03-07 Completed Universit y of Conjugate, PCV13 00:00:00 [place] [facility] (Prevnar 13) Branch Meningococcal B, [facility] 2016-03-07 Completed Univ ersity of 00:00:00 [facility] Pneumococcal 13 2016-03-07 Completed Universit y of Conjugate, PCV13 00:00:00 [place] [facility] (Prevnar 13) Branch Meningococcal B, [facility] 2016-03-07 Completed Univ ersity of 00:00:00 [facility] Pneumococcal 13 2016-03-07 Completed Universit y of Conjugate, PCV13 00:00:00 [place] [facility] (Prevnar 13) Branch Meningococcal B, [facility] 2016-03-07 Completed Univ ersity of 00:00:00 [facility] Pneumococcal 13 2016-03-07 Completed Universit y of Conjugate, PCV13 00:00:00 [place] [facility] (Prevnar 13) Branch Meningococcal B, [facility] 2016-03-07 Completed Univ ersity of 00:00:00 [facility] Pneumococcal 13 2016-03-07 Completed Universit y of Conjugate, PCV13 00:00:00 [place] [facility] (Prevnar 13) Branch Meningococcal B, [facility] 2016-03-07 Completed Univ ersity of 00:00:00 [facility] Pneumococcal 13 2016-03-07 Completed Universit y of Conjugate, PCV13 00:00:00 [place] [facility] (Prevnar 13) Branch Meningococcal B, [facility] 2016-03-07 Completed Univ ersity of 00:00:00 [facility] Pneumococcal 13 2016-03-07 Completed Universit y of Conjugate, PCV13 00:00:00 [place] [facility] (Prevnar 13) Branch Meningococcal B, V 2016-03-07 Completed Univ ersity of 00:00:00 [facility] Pneumococcal 13 2016-03-07 Completed Universit y of Conjugate, PCV13 00:00:00 [place] [facility] (Prevnar 13) Branch Meningococcal B, V 2016-03-07 Completed Univ ersity of 00:00:00 [facility] Pneumococcal 13 2016-03-07 Completed Universit y of Conjugate, PCV13 00:00:00 [place] [facility] (Prevnar 13) Branch Meningococcal B, V 2016-03-07 Completed Univ ersity of 00:00:00 [facility] Pneumococcal 13 2016-03-07 Completed Universit y of Conjugate, PCV13 00:00:00 [place] [facility] (Prevnar 13) Branch Meningococcal B, V 2016-03-07 Completed Univ ersity of 00:00:00 [facility] Pneumococcal 13 2016-03-07 Completed Universit y of Conjugate, PCV13 00:00:00 [place] [facility] (Prevnar 13) Branch Meningococcal B, V 2016-03-07 Completed Univ ersity of 00:00:00 [facility] Pneumococcal 13 2016-03-07 Completed Universit y of Conjugate, PCV13 00:00:00 [place] [facility] (Prevnar 13) Branch Meningococcal B, V 2016-03-07 Completed Univ ersity of 00:00:00 [facility] Pneumococcal 13 2016-03-07 Completed Universit y of Conjugate, PCV13 00:00:00 [place] [facility] (Prevnar 13) Branch Meningococcal B, V 2016-03-07 Completed Univ ersity of 00:00:00 [facility] Pneumococcal 13 2016-03-07 Completed Universit y of Conjugate, PCV13 00:00:00 [place] [facility] (Prevnar 13) Branch Meningococcal B, [facility] 2016-03-07 Completed Univ ersity of 00:00:00 [facility] Heamophilus Influenza 2015-11-13 Completed Uni versity of B 00:00:00 [facility] Heamophilus Influenza 2015-11-13 Completed Uni versity of B 00:00:00 [facility] Heamophilus Influenza 2015-11-13 Completed Uni versity of B 00:00:00 [facility] Heamophilus Influenza 2015-11-13 Completed Uni versity of B 00:00:00 [facility] Heamophilus Influenza 2015-11-13 Completed Uni versity of B 00:00:00 [facility] Heamophilus Influenza 2015-11-13 Completed Uni versity of B 00:00:00 [facility] Heamophilus Influenza 2015-11-13 Completed Uni versity of B 00:00:00 [facility] Heamophilus Influenza 2015-11-13 Completed Uni versity of B 00:00:00 [facility] Heamophilus Influenza 2015-11-13 Completed Uni versity of B 00:00:00 [facility] Heamophilus Influenza 2015-11-13 Completed Uni versity of B 00:00:00 [facility] Heamophilus Influenza 2015-11-13 Completed Uni versity of B 00:00:00 [facility] Heamophilus Influenza 2015-11-13 Completed Uni versity of B 00:00:00 [facility] Heamophilus Influenza 2015-11-13 Completed Uni versity of B 00:00:00 [facility] Heamophilus Influenza 2015-11-13 Completed Uni versity of B 00:00:00 [facility] Heamophilus Influenza 2015-11-13 Completed Uni versity of B 00:00:00 [facility] Heamophilus Influenza 2015-11-13 Completed Uni versity of B 00:00:00 [facility] Heamophilus Influenza 2015-11-13 Completed Uni versity of B 00:00:00 [facility] Heamophilus Influenza 2015-11-13 Completed Uni versity of B 00:00:00 [facility] Heamophilus Influenza 2015-11-13 Completed Uni versity of B 00:00:00 [facility] Heamophilus Influenza 2015-11-13 Completed Uni versity of B 00:00:00 [facility] Heamophilus Influenza 2015-11-13 Completed Uni versity of B 00:00:00 [facility] Heamophilus Influenza 2015-11-13 Completed Uni versity of B 00:00:00 [facility] Heamophilus Influenza 2015-11-13 Completed Uni versity of B 00:00:00 [facility] Heamophilus Influenza 2015-11-13 Completed Uni versity of B 00:00:00 [facility] Heamophilus Influenza 2015-11-13 Completed Uni versity of B 00:00:00 [facility] Heamophilus Influenza 2015-11-13 Completed Uni versity of B 00:00:00 [facility] Heamophilus Influenza 2015-11-13 Completed Uni versity of B 00:00:00 [facility] Heamophilus Influenza 2015-11-13 Completed Uni versity of B 00:00:00 [facility] Heamophilus Influenza 2015-11-13 Completed Uni versity of B 00:00:00 [facility] Heamophilus Influenza 2015-11-13 Completed Uni versity of B 00:00:00 [facility] Heamophilus Influenza 2015-11-13 Completed Uni versity of B 00:00:00 [facility] Heamophilus Influenza 2015-11-13 Completed Uni versity of B 00:00:00 [facility] Heamophilus Influenza 2015-11-13 Completed Uni versity of B 00:00:00 [facility] Heamophilus Influenza 2015-11-13 Completed Uni versity of B 00:00:00 [facility] Heamophilus Influenza 2015-11-13 Completed Uni versity of B 00:00:00 [facility] Heamophilus Influenza 2015-11-13 Completed Uni versity of B 00:00:00 [facility] Heamophilus Influenza 2015-11-13 Completed Uni versity of B 00:00:00 [facility] Heamophilus Influenza 2015-11-13 Completed Uni versity of B 00:00:00 [facility] Heamophilus Influenza 2015-11-13 Completed Uni versity of B 00:00:00 [facility] Heamophilus Influenza 2015-11-13 Completed Uni versity of B 00:00:00 [facility] Heamophilus Influenza 2015-11-13 Completed Uni versity of B 00:00:00 [facility] Heamophilus Influenza 2015-11-13 Completed Uni versity of B 00:00:00 [facility] Heamophilus Influenza 2015-11-13 Completed Uni versity of B 00:00:00 [facility] Heamophilus Influenza 2015-11-13 Completed Uni versity of B 00:00:00 [facility] Heamophilus Influenza 2015-11-13 Completed Uni versity of B 00:00:00 [facility] Heamophilus Influenza 2015-11-13 Completed Uni [...] Uni versity of B 00:00:00 [facility] Heamophilus Influenza 2015-11-13 Completed Uni versity of B 00:00:00 [facility] Heamophilus Influenza 2015-11-13 Completed Uni versity of B 00:00:00 [facility] Heamophilus Influenza 2015-11-13 Completed Uni versity of B 00:00:00 [facility] Heamophilus Influenza 2015-11-13 Completed Uni versity of B 00:00:00 [facility] Heamophilus Influenza 2015-11-13 Completed Uni versity of B 00:00:00 [facility] Heamophilus Influenza 2015-11-13 Completed Uni versity of B 00:00:00 [facility] Heamophilus Influenza 2015-11-13 Completed Uni versity of B 00:00:00 [facility] Heamophilus Influenza 2015-11-13 Completed Uni versity of B 00:00:00 [facility] Heamophilus Influenza 2015-11-13 Completed Uni versity of B 00:00:00 [facility] Heamophilus Influenza 2015-11-13 Completed Uni versity of B 00:00:00 [facility] Heamophilus Influenza 2015-11-13 Completed Uni versity of B 00:00:00 [facility] Heamophilus Influenza 2015-11-13 Completed Uni versity of B 00:00:00 [facility] Heamophilus Influenza 2015-11-13 Completed Uni versity of B 00:00:00 [facility] Heamophilus Influenza 2015-11-13 Completed Uni versity of B 00:00:00 [facility] Heamophilus Influenza 2015-11-13 Completed Uni [...] Uni versity of B 00:00:00 [facility] Heamophilus Influenza 2015-11-13 Completed Uni versity of B 00:00:00 [facility] Heamophilus Influenza 2015-11-13 Completed Uni versity of B 00:00:00 [facility] Heamophilus Influenza 2015-11-13 Completed Uni versity of B 00:00:00 [facility] Heamophilus Influenza 2015-11-13 Completed Uni versity of B 00:00:00 [facility] Heamophilus Influenza 2015-11-13 Completed Uni versity of B 00:00:00 [facility] Heamophilus Influenza 2015-11-13 Completed Uni versity of B 00:00:00 [facility] Heamophilus Influenza 2015-11-13 Completed Uni versity of B 00:00:00 [facility] Heamophilus Influenza 2015-11-13 Completed Uni versity of B 00:00:00 [facility] Heamophilus Influenza 2015-11-13 Completed Uni versity of B 00:00:00 [facility] Heamophilus Influenza 2015-11-13 Completed Uni versity of B 00:00:00 [facility] Heamophilus Influenza 2015-11-13 Completed Uni versity of B 00:00:00 [facility] Heamophilus Influenza 2015-11-13 Completed Uni versity of B 00:00:00 [facility] Heamophilus Influenza 2015-11-13 Completed Uni versity of B 00:00:00 [facility] Heamophilus Influenza 2015-11-13 Completed Uni versity of B 00:00:00 [facility] Heamophilus Influenza 2015-11-13 Completed Uni versity of B 00:00:00 [facility] Heamophilus Influenza 2015-11-13 Completed Uni versity of B 00:00:00 [facility] Heamophilus Influenza 2015-11-13 Completed Uni versity of B 00:00:00 [facility] Heamophilus Influenza 2015-11-13 Completed Uni versity of B 00:00:00 [facility] Heamophilus Influenza 2015-11-13 Completed Uni versity of B 00:00:00 [facility] Heamophilus Influenza 2015-11-13 Completed Uni versity of B 00:00:00 [facility] Heamophilus Influenza 2015-11-13 Completed Uni versity of B 00:00:00 [facility] Heamophilus Influenza 2015-11-13 Completed Uni versity of B 00:00:00 [facility] Heamophilus Influenza 2015-11-13 Completed Uni versity of B 00:00:00 [facility] Heamophilus Influenza 2015-11-13 Completed Uni versity of B 00:00:00 [facility] Heamophilus Influenza 2015-11-13 Completed Uni versity of B 00:00:00 [facility] Heamophilus Influenza 2015-11-13 Completed Uni versity of B 00:00:00 [facility] Heamophilus Influenza 2015-11-13 Completed Uni versity of B 00:00:00 [facility] Heamophilus Influenza 2015-11-13 Completed Uni versity of B 00:00:00 [facility] Heamophilus Influenza 2015-11-13 Completed Uni versity of B 00:00:00 [facility] Heamophilus Influenza 2015-11-13 Completed Uni versity of B 00:00:00 [facility] Heamophilus Influenza 2015-11-13 Completed Uni versity of B 00:00:00 [facility] Heamophilus Influenza 2015-11-13 Completed Uni versity of B 00:00:00 [facility] Heamophilus Influenza 2015-11-13 Completed Uni versity of B 00:00:00 [facility] Heamophilus Influenza 2015-11-13 Completed Uni versity of B 00:00:00 [facility] Heamophilus Influenza 2015-11-13 Completed Uni versity of B 00:00:00 [facility] Heamophilus Influenza 2015-11-13 Completed Uni versity of B 00:00:00 [facility] Heamophilus Influenza 2015-11-13 Completed Uni versity of B 00:00:00 [facility] Heamophilus Influenza 2015-11-13 Completed Uni versity of B 00:00:00 [facility] Heamophilus Influenza 2015-11-13 Completed Uni versity of B 00:00:00 [facility] Heamophilus Influenza 2015-11-13 Completed Uni versity of B 00:00:00 [facility] Heamophilus Influenza 2015-11-13 Completed Uni versity of B 00:00:00 [facility] Heamophilus Influenza 2015-11-13 Completed Uni versity of B 00:00:00 [facility] Heamophilus Influenza 2015-11-13 Completed Uni versity of B 00:00:00 [facility] Heamophilus Influenza 2015-11-13 Completed Uni versity of B 00:00:00 [facility] Heamophilus Influenza 2015-11-13 Completed Uni versity of B 00:00:00 [facility] Meningococcal 2015-11-12 Completed University of Polysaccharide 00:00:00 [...] (MCV4P) TDAP 2015-10-31 Completed University of 00:00:00 [facility] TDAP 2015-10-31 Completed University of 00:00:00 [facility] TDAP 2015-10-31 Completed University of 00:00:00 [facility] TDAP 2015-10-31 Completed University of 00:00:00 [facility] TDAP 2015-10-31 Completed University of 00:00:00 [facility] TDAP 2015-10-31 Completed University of 00:00:00 [facility] TDAP 2015-10-31 Completed University of 00:00:00 [facility] TDAP 2015-10-31 Completed University of [...] 2015-10-31 Completed University of 00:00:00 [facility] TDAP 2015-10-31 Completed University of 00:00:00 [facility] TDAP 2015-10-31 Completed University of 00:00:00 [facility] TDAP 2015-10-31 Completed University of 00:00:00 [facility] TDAP 2015-10-31 Completed University of 00:00:00 [facility] TDAP 2015-10-31 Completed University of 00:00:00 [facility] TDAP 2015-10-31 Completed University of 00:00:00 [facility] TDAP 2015-10-31 Completed University of 00:00:00 [facility] TDAP 2015-10-31 Completed University of [...] 2015-10-31 Completed University of 00:00:00 [facility] TDAP 2015-10-31 Completed University of [...] 2015-10-31 Completed University of 00:00:00 [facility] TDAP 2015-10-31 Completed University of 00:00:00 [facility] TDAP 2015-10-31 Completed University of [...] 2015-10-31 Completed University of 00:00:00 [facility] TDAP 2015-10-31 Completed University of 00:00:00 [facility] TDAP 2015-10-31 Completed University of 00:00:00 [facility] TDAP 2015-10-31 Completed University of 00:00:00 [facility] TDAP 2015-10-31 Completed University of 00:00:00 [facility] TDAP 2015-10-31 Completed University of 00:00:00 [facility] TDAP 2015-10-31 Completed University of 00:00:00 [facility] TDAP 2015-10-31 Completed University of [...] Branch TDAP 2015-10-31 Completed University of 00:00:00 [facility] TDAP 2015-10-31 Completed University of 00:00:00 [facility] TDAP 2015-10-31 Completed University of 00:00:00 [facility] TDAP 2015-10-31 Completed University of 00:00:00 [facility] TDAP 2015-10-31 Completed University of 00:00:00 [facility] TDAP 2015-10-31 Completed University of 00:00:00 [facility] TDAP 2015-10-31 Completed University of 00:00:00 [facility] TDAP 2015-10-31 Completed University of 00:00:00 [facility] TDAP 2015-10-31 Completed University of 00:00:00 [facility] TDAP 2015-10-31 Completed University of 00:00:00 [facility] TDAP 2015-10-31 Completed University of 00:00:00 [facility] TDAP 2015-10-31 Completed University of 00:00:00 [facility] TDAP 2015-10-31 Completed University of 00:00:00 [facility] TDAP 2015-10-31 Completed University of 00:00:00 [facility] TDAP 2015-10-31 Completed University of 00:00:00 [facility] TDAP 2015-10-31 Completed University of 00:00:00 [facility] TDAP 2015-10-31 Completed University of 00:00:00 [facility] TDAP 2015-10-31 Completed University of 00:00:00 [facility] TDAP 2015-10-31 Completed University of 00:00:00 [facility] TDAP 2015-10-31 Completed University of 00:00:00 [facility] TDAP 2015-10-31 Completed University of 00:00:00 [facility] TDAP 2015-10-31 Completed University of 00:00:00 [facility] TDAP 2015-10-31 Completed University of 00:00:00 [facility] Pneumococcal 2014-04-01 Completed University o f Polysaccharide, [...] ical PPSV23 (PNEUMOVAX) Branch Pneumococcal 2013-04-29 Completed [place] o f Polysaccharide, 00:00:00 [place] [facility] PPSV23 (PNEUMOVAX) Branch Vital Signs Vital Name Observation Time Observation Value Comments Source Systolic blood 2022-11-18 14:42:00 123 mm[facility]Hg[facility] 2022-11-18 14:42:00 82 mm[Hg] Unive [facility] Heart rate 2022-11-18 14:42:00 109 /min [facility] Body temperature 2022-11-18 14:42:00 36.72 Melissa [facility] Respiratory rate 2022-11-18 14:42:00 18 /min [facility] Body height 2022-11-18 14:42:00 162.6 cm [facility] Body weight 2022-11-18 14:42:00 97.523 kg [facility] BMI 2022-11-18 14:42:00 36.90 kg/m2 [facility] Heart rate 2022-10-29 21:30:00 91 /min [facility] Respiratory rate 2022-10-29 21:30:00 14 /min [facility] Oxygen saturation in 2022-10-29 21:30:00 98 /min [facility] Arterial blood by [facility] Pulse oximetry Branch Systolic blood 2022-10-29 20:21:00 125 mm[Hg] Univer sity [facility] Diastolic blood 2022-10-29 20:21:00 79 mm[Hg] Unive [facility] Body temperature 2022-10-29 20:21:00 36.89 Melissa Univ ersity of [facility] Body height 2022-10-29 20:21:00 157.5 cm [facility] Body weight 2022-10-29 20:21:00 94.348 kg [facility] BMI 2022-10-29 20:21:00 38.04 kg/m2 Universi ty of [facility] Systolic blood 2022-10-27 15:21:00 91 mm[Hg] Univer sity of pressure [facility] Diastolic blood 2022-10-27 15:21:00 58 mm[Hg] Unive rsity of pressure [facility] Heart rate 2022-10-27 15:21:00 82 /min Universi ty of [facility] Body height 2022-10-27 15:21:00 157.5 cm [facility] Body weight 2022-10-27 15:21:00 94.394 kg [facility]i [facility] BMI 2022-10-27 15:21:00 38.06 kg/m2 Universi ty of [facility] Oxygen saturation in 2022-10-27 15:21:00 95 /min University of Arterial blood by [facility] Pulse oximetry Branch HEIGHT 2022-10-22 05:49:00 157.5 cm WEIGHT 2022-10-22 05:49:00 96.48 kg HEIGHT 2022-10-22 05:49:00 157.5 cm WEIGHT 2022-10-22 05:49:00 96.48 kg HEIGHT 2022-10-22 05:49:00 157.5 cm WEIGHT 2022-10-22 05:49:00 96.48 kg Systolic blood 2022-10-19 21:30:00 148 mm[Hg] Univer sity of [facility] Diastolic blood 2022-10-19 21:30:00 89 mm[Hg] Unive rsity of pressure [facility] Heart rate 2022-10-19 21:30:00 115 /min [facility] [facility] Body temperature 2022-10-19 21:30:00 37.17 Melissa Univ ersity of [facility] Respiratory rate 2022-10-19 21:30:00 16 /min [facility] Oxygen saturation in 2022-10-19 21:30:00 97 /min University of Arterial blood by [place] [employer] Pulse oximetry Branch Body height 2022-10-19 [...] 99 /min University of Arterial blood by [facility] Pulse oximetry Branch Systolic blood 2022-10-15 16:05:00 97 mm[Hg] Univer sity of pressure [facility] Diastolic blood 2022-10-15 16:05:00 62 mm[Hg] Unive rsity of pressure [facility] Heart rate 2022-10-15 16:05:00 98 /min [facility] ty [facility] Body temperature 2022-10-15 16:05:00 36.33 Melissa [facility] Respiratory rate 2022-10-15 16:05:00 16 /min Univ ers[facility] of [facility] Body height 2022-10-15 16:05:00 157.5 cm [facility] [place] [facility] Body weight 2022-10-15 16:05:00 99.791 kg [facility] BMI 2022-10-15 16:05:00 40.24 kg/m2 [facility] Oxygen saturation in 2022-10-15 16:05:00 98 /min University of Arterial blood by [facility] Pulse oximetry Branch Systolic blood 2022-10-07 19:00:00 [...] 100 /min University of Arterial blood by [facility] Pulse oximetry Branch Body temperature 2022-10-07 17:09:00 37.28 Melissa [facility] Body height 2022-10-07 17:09:00 157.5 cm [facility] Body weight 2022-10-07 17:09:00 102.059 [...] 100 /min University of Arterial blood by [facility] Pulse oximetry Branch Systolic blood 2022-09-03 17:29:00 97 mm[Hg] Univer sity of pressure [facility] Diastolic blood 2022-09-03 17:29:00 64 mm[Hg] Unive rsity of pressure [facility] Heart rate 2022-09-03 17:29:00 95 /min [facility] Body temperature 2022-09-03 17:29:00 37.17 Melissa [facility] of [facility] Body height 2022-09-03 17:29:00 157.5 cm [facility] [place] [facility] Body weight 2022-09-03 17:29:00 101.606 [...] 2022-07-27 13:03:00 98 /min [facility] Body temperature 2022-07-27 13:03:00 36.83 Melissa [facility] Body weight 2022-07-27 13:03:00 102.967 kg [facility] [place] [facility] BMI 2022-07-27 13:03:00 41.52 kg/m2 [facility] [place] [facility] Oxygen saturation in 2022-07-27 13:03:00 94 /min [facility] blood by [place] [facility] Systolic blood 2022-06-17 15:45:00 104 mm[Hg] Univer sity of pressure [facility] Diastolic blood 2022-06-17 15:45:00 69 [...] 98 /min University of Arterial blood by [facility] Pulse oximetry Branch Systolic blood 2022-06-15 13:01:00 101 mm[Hg] Univer sity of pressure [place] [facility] [place] Diastolic blood 2022-06-15 13:01:00 68 mm[Hg] Unive [...] 98 /min University of Arterial blood by [facility] Pulse oximetry Branch Systolic blood [...] 97 /min [facility] Arterial blood by [facility] Pulse oximetry Branch Body temperature 2022-03-02 15:23:00 36.28 Melissa [facility] Body weight 2022-02-24 17:00:00 100.245 kg [facility] [place] [facility] BMI 2022-02-24 17:00:00 40.42 kg/m2 [facility] [place] [facility] Systolic blood 2022-03-02 15:25:00 98 mm[Hg] Univer sity of pressure [facility] Diastolic blood 2022-03-02 15:25:00 55 mm[Hg] Unive rsity of pressure [facility] Heart rate 2022-03-02 15:25:00 85 /min [facility] Respiratory rate 2022-03-02 15:25:00 18 /min Univ ersity of [facility] Oxygen saturation in 2022-03-02 15:25:00 100 /min [facility] of Arterial blood by [facility] Pulse oximetry Branch Body temperature 2022-03-02 15:23:00 36.28 Melissa [facility] Body weight 2022-02-24 17:00:00 100.245 kg [facility] [place] [facility] BMI 2022-02-24 17:00:00 40.42 kg/m2 [facility] [place] [facility] Systolic blood 2022-10-25 10:57:00 120 mm[Hg] [facility] Diastolic blood 2022-10-25 10:57:00 63 mm[facility]Hg] [facility] 2022-10-25 10:57:00 92 /min [facility] Body temperature 2022-10-25 10:57:00 35.61 Melissa [facility] Respiratory rate 2022-10-25 10:57:00 18 /min [facility] Oxygen saturation in 2022-10-25 10:57:00 100 /min [facility] Arterial blood by Medical Ce nter Pulse oximetry Body height 2022-10-22 05:49:00 157.5 cm [facility] Body weight 2022-10-22 05:49:00 96.48 kg [facility] BMI 2022-10-22 05:49:00 38.90 kg/m2 [facility] Procedures Procedure Date / Time Performing Source Performed Clinician ASSIGNMENT OF BENEFITS 2022-11-18 [facility] of 14:08:36 Unassigned, No [facility] AUTHORIZATION FOR RELEASE OF PHI 2022-11-11 [facility] of 06:01:00 Unassigned, No [facility] HB ABO GROUPING 2022-10-29 Shena Perea [place] of 20:53:00 [facility] COMP. METABOLIC PANEL (94161) 2022-10-29 Shena Perea U niversity of 20:52:00 [facility] CBC WITH DIFF 2022-10-29 Lenny [facility] of 20:52:00 [facility] CONSENT/REFUSAL FOR DIAGNOSIS AND 2022-10-29 [facility] of TREATMENT 20:01:41 Unassigned, No [facility] BASIC METABOLIC PANEL$W/EGFR-Q 2022-10-27 Elisha Araujo U niversity of 16:36:00 [facility] POCT-GLUCOSE METER 2022-10-25 Ali, Hiba Tereso [facility] 11:05:00 [place] POCT-GLUCOSE METER 2022-10-25 Ali, Hiba Tereso [facility] 07:47:00 [place] BASIC METABOLIC PANEL 2022-10-25 Nalam, Livia Beth [facility] 03:35:00 [place] MAGNESIUM 2022-10-25 Nalam, Livia Beth [facility] 03:35:00 [place] CBC W/PLT COUNT & AUTO 2022-10-25 Nalam, Livia Beth [facility] DIFFERENTIAL 03:35:00 [place] RETICULOCYTE COUNT 2022-10-25 Eziokwu, [facility]olisa [facility] 03:35:00 [facility] LACTATE DEHYDROGENASE (LDH) 2022-10-25 Eziokwu[facility]isa [facility] 03:35:00 [facility] HAPTOGLOBIN 2022-10-25 Nalam, Livia Beth [facility] 03:35:00 [place] HEPATIC FUNCTION PANEL 2022-10-25 Nalam, Livia Beth [facility] 03:35:00 [place] CBC W/PLT COUNT & AUTO 2022-10-25 Nalam, Livia Beth [facility] DIFFERENTIAL 03:35:00 [place] POCT-GLUCOSE METER 2022-10-24 Ali, Hiba Tereso [facility] 23:11:00 [place] POCT-GLUCOSE METER 2022-10-24 Ali, Hiba Tereso [facility] 17:33:00 [facility] POCT-GLUCOSE METER 2022-10-24 Ali, Hiba Tereso [facility] 11:39:00 [facility] POCT-GLUCOSE METER 2022-10-24 Ali, Hiba Tereso [facility] 07:36:00 [place] BASIC METABOLIC PANEL 2022-10-24 Nalam, Livia Beth [facility] 03:[facility]00 [facility] MAGNESIUM 2022-10-24 Nalam, Livia Beth [facility] 03:12:00 [place] CBC W/PLT COUNT & AUTO 2022-10-24 Nalam, Livia Beth [facility] DIFFERENTIAL 03:12:00 [place] RETICULOCYTE COUNT 2022-10-24 Eziokwu, Akaolisa [facility] 03:12:00 [facility] LACTATE DEHYDROGENASE (LDH) 2022-10-24 Eziokwu, [facility]olisa [facility] 03:12:00 [facility] C-REACTIVE PROTEIN 2022-10-24 Nalam, Livia Beth [facility] 03:12:00 [place] HAPTOGLOBIN 2022-10-24 Nalam, Livia Beth [facility] 03:12:00 [place] HEPATIC FUNCTION PANEL 2022-10-24 Nalam, Livia Beth [facility] 03:12:00 [facility] CBC W/PLT COUNT & AUTO 2022-10-24 Nalam, Livia Beth [facility] DIFFERENTIAL 03:12:00 [facility] POCT-GLUCOSE METER 2022-10-23 Ali, Sheria Tereso [facility] 21:50:00 [facility] POCT-GLUCOSE METER 2022-10-23 Ali, Hiba Tereso [facility] 17:24:00 [facility] ANTIBODY IDENTIFICATION 2022-10-23 Nalam, Livia Beth [facility] 12:29:00 [facility] POCT-GLUCOSE METER 2022-10-23 Ali, Hiba Tereso [facility] 12:20:00 [facility] POCT-GLUCOSE METER 2022-10-23 Ali, Hiba Tereso [facility] 09:26:00 [place] BASIC METABOLIC PANEL 2022-10-23 Nalam, Livia Beth [facility] 04:28:00 [place] MAGNESIUM 2022-10-23 Nalam, Livia Beth [facility] 04:28:00 [facility] CBC W/PLT COUNT & AUTO 2022-10-23 Nalam, Livia Beth [facility] DIFFERENTIAL 04:28:00 [place] RETICULOCYTE COUNT 2022-10-23 Eziokwu, Akaolisa [facility] 04:28:00 [facility] LACTATE DEHYDROGENASE (LDH) 2022-10-23 Ezconchakwu, [facility]olisa [facility] 04:28:00 [facility] C-REACTIVE PROTEIN 2022-10-23 Nalam, Livia Beth [facility] 04:28:00 [facility] FERRITIN 2022-10-23 Nalam, Livia Beth [facility] 04:28:00 [facility] HAPTOGLOBIN 2022-10-23 Nalam, Livia Beth [facility] 04:28:00 [facility] HEPATIC FUNCTION PANEL 2022-10-23 Nalam, Livia Beth [facility] 04:28:00 [place] HEMOGLOBIN A1C 2022-10-23 Nalam, Livia Beth [facility] 04:28:00 [facility] CBC W/PLT COUNT & AUTO 2022-10-23 Nalam, Livia Beth [facility] DIFFERENTIAL 04:28:00 [facility] ABORH, MANUAL 2022-10-[address] [facility] 02:02:00 [facility] POCT-GLUCOSE METER 2022-10-22 Nalam, Livia Beth [facility] 22:41:00 [facility] XR ABDOMEN/KUB 1 VIEW PORTABLE 2022-10-22 Nalam, Livia Beth [facility] 17:23:00 [place] D-DIMER 2022-10-22 Nalam, Livia Beth [facility] 16:29:00 [facility] CBC W/PLT COUNT & AUTO 2022-10-22 Nalam, Livia Beth [facility] DIFFERENTIAL 11:33:00 [place] RETICULOCYTE COUNT 2022-10-22 Nalam, Livia [facility] 11:33:00 [place] PERIPHERAL BLOOD SMEAR - HOLD ONLY 2022-10-22 Nalam, Livia Beth [facility] 11:33:00 [facility] DIRECT AHG (ARNOLD)/DIRECT SONDRA 2022-10-22 Nalam, Livia Beth [facility] 11:33:00 [facility] TYPE AND SCREEN, AUTOMATED 2022-10-22 Nalam, Livia Bteh [facility] 11:33:00 [facility] CBC W/PLT COUNT & AUTO 2022-10-22 Nalam, Livia Beth [facility] DIFFERENTIAL 11:33:00 [facility] COMPREHENSIVE METABOLIC PANEL 2022-10-22 Nalam, Livia Beth [facility] 11:32:00 [facility] MAGNESIUM 2022-10-22 Nalam, Livia Beth [facility] 11:32:00 [facility] LACTATE DEHYDROGENASE (LDH) 2022-10-22 Nalam, Livia Beth [facility] 11:32:00 [facility] BILIRUBIN, DIRECT 2022-10-22 Nalam, Livia Beth [facility] 11:32:00 [facility] IRON, TIBC, % SAT. (WITHOUT 2022-10-22 Nalam, Livia Beth [facility]) 11:32:00 [facility] FERRITIN 2022-10-22 Nalam, Livia Beth [facility] 11:32:00 [facility] VITAMIN B12 2022-10-22 Nalam, Livia Beth [facility] 11:32:00 [place] HAPTOGLOBIN 2022-10-22 Jose Antonio, Livia Beth [facility] 11:32:00 Medical Center FIBRINOGEN 2022-10-22 Nalam, Livia Beth [facility] 11:31:00 [facility] PT/APTT 2022-10-22 Nalam, Livia Beth [facility] 11:31:00 [facility] EKG-SCANNED 2022-10-22 Provider, Jeff [facility]:[address] [facility] COMP. METABOLIC PANEL ([id number]) 2022-10-19 Tina Curtis Un iversity of 11:22:00 [facility] GIARDIA CRYPTOSPORIDIUM AG SCR 2022-10-19 Tina Curtis U niversity of 05:09:00 [facility] FECAL PATHOGENS BY PCR 2022-10-19 [facility] of 05:09:00 [facility] CT ABDOMEN PELVIS W CONTRAST 2022-10-18 Kemal Myers niversity of 23:00:00 [facility] POCT TEST 2022-10-18 [facility] of 22:15:00 [facility] LIPASE 2022-10-18 [facility] of 22:08:00 [facility] FREE T4 2022-10-18 [facility] 22:08[facility]00 [facility] THYROID STIMULATING HORMONE 2022-10-18 Veronica Curtiskanya Univ ersity of 22:08:00 [facility] COMP. METABOLIC PANEL ([id number]) 2022-10-18 Louis [facility] of 22:08:00 [facility] CBC WITH DIFF 2022-10-18 [facility] of 22:08:00 [facility] URINALYSIS 2022-10-18 [facility] of 22:08:00 [facility] CONSENT/REFUSAL FOR DIAGNOSIS AND 2022-10-18 [facility] 20:52:07 Unassigned, No [facility] URINE CULTURE 2022-10-18 Cornelius [facility] 17:46:00 Maribel [facility] BASIC METABOLIC PANEL (NA, K, CL, 2022-10-18 [place] [id number], GLUCOSE, BUN, CREATININE, CA) 17:24:00 [facility] C-REACTIVE PROTEIN 2022-10-18 [facility]00 [facility] URINALYSIS AUTO 2022-10-18 [facility] 16:15:00 [facility] DISCLOSURE AND CONSENT, MEDICAL 2022-10-18 [facility] AND SURGICAL PROCEDURES 06:01:00 Unassigned, No [facility] AD[facility]ION 2022-10-18 [facility] 06:01:00 Unassigned, No [facility] LACTIC ACID WHOLE BLOOD 2022-10-07 Destiny Oneill [facility] ty of 18:28:00 [facility] LIPASE 2022-10-07 [facility] of 18:16:00 [facility] COMP. METABOLIC PANEL ([id number]) 2022-10-07 Destiny Oneill iversity of 18:16:00 [facility] CBC WITH DIFF 2022-10-07 [facility] 18:16:00 [facility] URINALYSIS 2022-10-07 [facility] of 18:16:00 [facility] CONSENT/REFUSAL FOR DIAGNOSIS AND 2022-10-07 [facility] of TREATMENT 16:58:17 Unassigned, No [facility] POCT HEMOGLOBIN A1C TEST 2022-08-24 Tray Jolly [facility] ity of 00:00:00 [facility] DME/SUPPLY JUSTIFICATION 2022-08-05 [facility] ity of 06:01:00 Unassigned, No [facility] SARS-COV-2 COVID-19 CHRISTELLE-SUCROSE 2022-07-27 Rik [facility] of VACCINE 12 YRS+, BIVALENT 0.3ML, 13:13:29 [facility] IM, (PFIZER FOUNTAIN TOP BOOSTER) Br anch MEDICATION CORRESPONDENCE 2022-07-19 [facility] sit of 05:01:00 Unassigned, No [facility] DISABILITY/FMLA 2022-07-01 [facility] of 05:01:00 Unassigned, No [facility] MR THORACIC SPINE WO CONTRAST 2022-06-30 Stella Worley Un iversity of 16:22:01 [facility] MR CERVICAL SPINE WO CONTRAST 2022-06-30 Stella Worley iversity of 16:20:35 [facility] CONSENT/REFUSAL FOR DIAGNOSIS AND 2022-06-30 Doctor [facility] 14:32:21 Unassigned, No [facility] CONSENT/REFUSAL FOR DIAGNOSIS AND 2022-06-30 Doctor [facility] 14:32:20 Unassigned, No [facility] INSURANCE CORRESPONDENCE 2022-06-17 Doctor [facility] of 05:01:00 Unassigned, No [facility] POWER OF ROLLER HELPER 2022-06-01 Doctor [facility] 05:01:00 Unassigned, No [facility] POWER OF ROLLER HELPER 2022-05-13 Doctor [place] of 05:01:00 Unassigned, No [facility] DME/SUPPLY JUSTIFICATION 2022-05-06 Doctor [facility] ity of 05:01:00 Unassigned, No [facility] EMG/NCV 2022-04-08 Stella Worley [place] of 14:43:00 [facility] CONSENT/REFUSAL FOR DIAGNOSIS AND 2022-03-27 Doctor [facility] 12:40:53 Unassigned, No [facility] PHYSICIAN ORDERS 2022-03-19 [facility] 05:01:00 Unassigned, No [facility] COLONOSCOPY (ENDO) 2022-03-02 [facility] of 14:43:32 [facility] COLONOSCOPY (ENDO) 2022-03-02 [facility] of 14:43:32 [facility] COLONOSCOPY 2022-03-02 M[facility]quez, [facility] of 14:02:00 [facility] ESOPHAGOGASTRODUODENOSCOPY 2022-03-02 [facility] ers[facility] of 14:02:00 [facility] EGD (ENDO) 2022-03-02 [facility] of 13:53:24 [facility] EGD (ENDO) 2022-03-02 [facility] of 13:53:24 [facility] POCT GLUCOSE(AGE >30DAYS) 2022-03-02 [facility] of 12:59:00 [facility] POCT GLUCOSE(AGE >30DAYS) 2022-03-02 [facility] ers[facility] of 12:59:00 [facility] POCT GLUCOSE (AUTOMATED) 2022-03-02 Cecile Márquez [facility] sity of 12:58:00 [facility] POCT GLUCOSE (AUTOMATED) 2022-03-02 Cecile Márquez [facility] sity of 12:58:00 [facility] POCT TEST 2022-03-02 [facility] of 12:48:00 [facility] POCT TEST 2022-03-02 [facility] of 12:48:00 [facility] DAY SURGERY - ADC 2022-03-02 [facility] of 05:01:00 Unassigned, No [facility] DME/SUPPLY JUSTIFICATION 2022-01-04 Doctor [facility] ity of 05:01:00 Unassigned, No [facility] DME/SUPPLY JUSTIFICATION 2022-01-04 Doctor [facility] it of 05:01:00 Unassigned, No [facility] DISCLOSURE AND CONSENT, MEDICAL 2021-12-28 [facility] of AND SURGICAL PROCEDURES 05:01:00 Unassigned, No [facility] dical Name Branch DISCLOSURE AND CONSENT, [facility] 2021-12-28 [facility] AND SURGICAL PROCEDURES 05:01:00 Unassigned, No [facility] dical Name Branch Plan of Care Planned Activity Planned Date Details Comments Source Future Scheduled 2032-03-02 Screening for malignant [facility] Test 00:00:00 neoplasm of colon Medical Ce nter (procedure) [code = 465309784] Future Scheduled 2032-03-02 Screening for malignant [facility] Test 00:00:00 neoplasm of colon Medical Ce nter (procedure) [code = 699097396] Future Scheduled 2032-03-02 Screening for malignant [facility] Test 00:00:00 neoplasm of colon Medical Ce nter (procedure) [code = 565729741] Future Scheduled 2032-03-02 Screening for malignant [facility] Test 00:00:00 neoplasm of colon Medical Ce nter (procedure) [code = 810456361] Future Scheduled 2032-03-02 Screening for malignant [facility] Test 00:00:00 neoplasm of colon Medical Ce nter (procedure) [code = 846843697] Future Scheduled 2032-03-02 Screening for malignant [facility] Test 00:00:00 neoplasm of colon Medical Ce nter (procedure) [code = 889492499] Future Scheduled 2032-03-02 Screening for malignant [facility] Test 00:00:00 neoplasm of colon Medical Ce nter (procedure) [code = 368985382] Future Scheduled 2032-03-02 Screening for malignant [facility] Test 00:00:00 neoplasm of colon Medical Ce nter (procedure) [code = 079943020] Future Scheduled 2032-03-02 Screening for malignant [facility] Test 00:00:00 neoplasm of colon Medical Ce nter (procedure) [code = 334203416] Future Scheduled 2032-03-02 Screening for malignant [facility] Test 00:00:00 neoplasm of colon Medical Ce nter (procedure) [code = 570783047] Future Scheduled 2029-08-10 DTAP/TDAP/TD VACCINES CH I [...] [facility] 00:00:00 [code = 80874680] Medical Ce nter Future Scheduled 2018 Lipid panel (procedure) [facility] Test 00:00:00 [code = 74557224] Medical Ce nter Future Scheduled 2018 Lipid panel (procedure) [facility] Test 00:00:00 [code = 83339686] Medical Ce nter Future Scheduled 2018 Lipid panel (procedure) [facility] Test 00:00:00 [code = 99446330] Medical Ce nter Future Scheduled 2018 Lipid panel (procedure) [facility] Test 00:00:00 [code = 03672577] Medical Ce nter Future Scheduled 1994 Screening for malignant [facility] Test 00:00:00 neoplasm of cervix Medical C enter (procedure) [code = 262452990] Future Scheduled 1994 Screening for malignant [facility] Test 00:00:00 neoplasm of cervix Medical C enter (procedure) [code = 005315760] Future Scheduled 1994 Screening for malignant [facility] Test 00:00:00 neoplasm of cervix Medical C enter (procedure) [code = 213554589] Future Scheduled 1994 Screening for malignant [facility] Test 00:00:00 neoplasm of cervix Medical C enter (procedure) [code = 527688106] Future Scheduled 1994 Screening for malignant [facility] Test 00:00:00 neoplasm of cervix Medical C enter (procedure) [code = 065322492] Future Scheduled 1991 HEPATITIS C SCREENING [facility] [...] [facility] Test 00:00:00 [code = CT Colonography [facility] (combo)] Future Scheduled 1973 Screening for malignant [facility] Test 00:00:00 neoplasm of colon Medical Ce nter (procedure) [code = 351951995] Future Scheduled 1973 Screening for malignant [facility] Test 00:00:00 neoplasm of colon Medical Ce nter (procedure) [code = 123996620] Future Scheduled 1973 Sigmoidoscopy [code = [facility] S[facility]oscopy] Medical Alinee r Future Scheduled 1973 CT Colonography (combo) [facility] 00:00:00 [code = CT [facility] Future Scheduled 1973 Screening for malignant [facility] Test 00:00:00 neoplasm of colon Medical Ce nter (procedure) [code = 496489453] Future Scheduled 1973 Screening for malignant [facility] Test 00:00:00 neoplasm of colon Medical Ce nter (procedure) [code = 454159425] Future Scheduled 1973 Sigmoidoscopy [facility]code [facility] Sigmoidoscopy] Medical Alinee r Future Scheduled 1973 CT Colonography (combo) [facility] 00:00:00 [code = CT [facility] ([facility] Future Scheduled 1973 Screening for malignant [facility] Test 00:00:00 neoplasm of colon Medical Ce nter (procedure) [code = 557529054] Future Scheduled 1973 Screening for malignant [facility] Test 00:00:00 neoplasm of colon Medical Ce nter (procedure) [code = 780851303] Future Scheduled 1973 Sigmoidoscopy [code = [facility] 00:[facility] Sigmoidoscopy] Medical Alinee r Future Scheduled 1973 CT Colonography (combo) [facility] 00:00:00 [code = CT [facility] ([facility])] Future Scheduled 1973 Screening for malignant [facility] Test 00:00:00 neoplasm of colon Medical Ce nter (procedure) [code = 327722236] Future Scheduled 1973 Screening for malignant [facility] Test 00:00:00 neoplasm of colon Medical Ce nter (procedure) [code = 199868399] Future Scheduled 1973 Sigmoidoscopy [code = [facility] 00:[facility] Sigmoidoscopy] Medical Alinee r Future Scheduled 1973 CT Colonography (combo) [facility] Test 00:00:00 [code = CT [facility] ([facility])] Future Scheduled 1973 Screening for malignant [facility] Test 00:00:00 neoplasm of colon Medical Ce nter (procedure) [code = 919499634] Future Scheduled 1973 Screening for malignant [facility] Test 00:00:00 neoplasm of colon Medical Ce nter (procedure) [code = 671678805] Future Scheduled 1973 Sigmoidoscopy [facility]code [facility] S[facility]oscopy] Medical Cente r Encounters Start End Encounter Admission Attending Care Care Encounter Source Date/Time Date/Time Type Type Clinicians Facility Department ID 2022-02-16 Outpatient Brock MÁRQUEZ [facility] MARCUS [id number] Univers 10:29:45 CECILE flores [facility] 2021-12-01 Outpatient Brock MÁRQUEZ [facility] MARCUS [id number] Univers 13:05:09 CECILE flores [facility] 2021-11-04 Outpatient Brock MÁRQUEZ [facility] MARCUS [id number] Univers 15:43:22 CECILE ity [facility] 2021-07-27 Emergency [facility] [id number] Univers 19:11:28 ity [facility] 2021-07-27 Emergency [facility] [id number] Univers 10:12:30 ity of [facility] 2021-07-27 Emergency [facility] [id number] Univers 06:35:13 ity of [facility] 2021-07-27 Emergency [facility] [id number] Univers 04:01:19 ity of [facility] 2021-07-26 Emergency [facility] [id number] Univers 12:06:22 ity of [facility] 2021-07-26 Emergency [facility] [id number] Univers 11:43:46 ity [facility] 2023-02-22 2023-02-22 Outpatient Brock JOLLY [facility] [id number] Univers 09:15:00 09:15:00 TRAY ity [facility] 2023-02-10 2023-02-10 Outpatient NAV GIANG [facility] [id number] Univers 08:30:00 08:30:00 ity [facility] 2022-11-30 2022-11-30 Susan Paula [facility] 1.2.840.114 [id number] Univers 00:00:00 00:00:00 Wondiful A HEALTH 350.1.13.10 ity of [place] 4.2.7.2.686 Emanuel as JOLLY?BLEA [id number] Ms dical KNEY [address] MEDICAL OFFICE BUILDING 2022-11-25 2022-11-25 Outpatient R NAV ANTONIO [facility] [id number] Univers 00:00:00 00:00:00 ity of [facility] 2022-11-21 2022-11-24 Inpatient EM Sean, SHANNANMN MAS [id number] [facility] 12:57:00 14:58:00 Neris 86 [facility] 2022-11-24 2022-11-24 Outpatient Brock JOLLY [facility] [id number] Univers 09:45:00 09:45:00 TRAY ity [facility] 2022-11-21 2022-11-21 Outpatient SHANNAN EstradaCL LABO [id number] [facility] 01:06:00 01:06:00 Neris 52 [facility] 2022-11-18 2022-11-18 Outpatient R MARISELA NAV [facility] [id number] Univers 08:00:00 09:08:00 ity [facility] 2022-11-18 2022-11-18 Office Marisela [facility] 1.2.561.686 [id number] Univers 08:00:00 09:08:00 Visit Cam JG 350.1.13.10 i ty of [place].7.2.[place] [id number] Ms samiria NAL [address] [facility] 2022-11-18 2022-11-18 Orders Doctor BON 1.2.840.114 [id number] Univers 00:00:00 00:00:00 Only Unassigned, GRAYSON 350.1.13.10 ity of [place] [facility] 4.2.7.2.686 Emanuel as [id number] [facility] [address] 2022-11-17 2022-11-17 Susan [facility] 1.2.840.114 [id number] Univers 00:00:00 00:00:00 Maribel GREGORIO 350.1.13.10 ity of [place].2.7.2.[place] [id number] Ms dical NAL [address] [facility] 2022-11-16 2022-11-16 Susan Márquez [facility] 1.2.107.851 [id number] Univers 00:00:00 00:00:00 Cecile GREGORIO 350.1.13.10 i ty of [facility] 4.2.7.2.686 [place] [id number] Ms dicroshan BARNEY [address] [facility] 2022-11-11 2022-11-11 Telephone BRANDON Chávez 1.2.840.114 10 [id number] Univers 00:00:00 00:00:00 Bon Cook HEALTH 350.1.13.10 i ty of [facility] 4.2.7.2.686 [place] [id number] [facility] [address] 2022-11-11 2022-11-11 Orders Doctor BON 1.2.840.114 [id number] Univers 00:00:00 00:00:00 Only Unassigned, GRAYSON 350.1.13.10 ity of [place] [facility] 4.2.7.2.686 Emanuel as [id number] [facility] [address] 2022-11-09 2022-11-09 Telephone [facility] 1.2.711.164 [id number] Univers 00:00:00 00:00:00 Vik Fleming [facility] 350.1.13.10 it y of [place] 4.2.7.2.686 [place] [facility] [id number] [facility] PRIMARY & [address] SPECIALTY CARE 2022-11-08 2022-11-[address] [facility] 1.2.840.114 [id number] Univers 00:00:00 00:00:00 Tray [facility] 350.1.13.10 it y of [place] 4.2.7.2.686 Emanuel as JOLLY?BLEA [id number] [facility] CONTRERAS [address] MEDICAL OFFICE BUILDING 2022-11-04 2022-11-04 Telephone [facility] 1.2.840.114 [id number] Univers 00:00:00 00:00:00 [facility] 350.1.13.10 it y of [place] 4.2.7.2.686 Emanuel as JOLLY?BLEA [id number] [address] OFFICE [facility] 2022-11-01 2022-11-01 [facility] [id number] [facility] 14:30:00 14:30:00 TRAY ity [facility] 2022-11-01 2022-11-[address] [facility] 1.2.840.114 [id number] Univers 00:00:00 00:00:00 [facility] 350.1.13.10 it y of [place] 4.2.7.2.686 Emanuel as JOLLY?BLEA [id number] [address] 2022-10-29 2022-10-29 Emergency X [facility] ERT [id number] Univers 14:24:00 16:45:00 SHENA ity [facility] 2022-10-29 2022-10-29 Emergency [facility] 1.2.840.114 10 [id number] Univers 14:24:00 16:45:00 Shena GREGORIO 350.1.13.10 ity of [facility] 4.2.7.2.686 [place] [facility] [phone] [address] 2022-10-29 2022-10-29 Telephone [facility] ED 1.2.881.999 [id number] Univers 00:00:00 00:00:00 Elisha HEALTH 350.1.13.10 it y of [place] 4.2.7.2.686 Emanuel as JOLLY?BLEA [id number] [address] 2022-10-29 2022-10-[address] [facility] 1.2.840.114 100 [id number] Univers 00:00:00 00:00:00 Tray HEALTH 350.1.13.10 it y of [place] 4.2.7.2.686 Emanuel as JOLLY?BLEA [id number] [address] 2022-10-29 2022-10-29 Telephone [facility] 1.2.840.114 100 [id number] Univers 00:00:00 00:00:00 Tray HEALTH 350.1.13.10 it y of [place] 4.2.7.2.686 Emanuel as JOLLY?BLEA [phone] [address] MEDICAL OFFICE BUILDING 2022-10-28 2022-10-28 Telephone [facility] 1.2.801.463 [id number] Univers 00:00:00 00:00:00 Elisha HEALTH 350.1.13.10 it y of [place] 4.2.7.2.686 Emanuel as JOLLY?BLEA [id number] [address] OFFICE [facility] 2022-10-28 2022-10-28 Patient [facility] 1.2.840.114 [id number] Univers 00:00:00 00:00:00 Outreach [facility] 350.1.13.10 i ty of [place] 4.2.7.2.686 [place] [id number] [facility] PRIMARY & [facility] [address] SPECIALTY CARE 2022-10-27 2022-10-27 Outpatient R [facility] [id number] Univers 09:00:00 10:02:31 ELISHA mark [facility] 2022-10-27 2022-10-27 Office [facility] 1.2.840.114 [id number] Univers 09:00:00 10:02:31 [facility] 350.1.13.10 it y of [place] 4.2.7.2.686 Emanuel as JOLLY?BLEA [id number] [address] MEDICAL OFFICE [facility] 2022-10-27 2022-10-27 Orders BON Araujo 1.2.840.114 [id number] Univers 00:00:00 00:00:00 Only Elisha GALICIA 350.1.13.10 it y of [facility] 4.2.7.2.686 Emanuel as [id number] [place] [address] [address] 2022-10-26 2022-10-26 Telephone [facility] 1.2.141.264 [id number] [id number] Univers 00:00:00 00:00:00 Elisha HEALTH 350.1.13.10 it y of [place] 4.2.7.2.686 Emanuel as JOLLY?BLEA [phone] Ms gabi [address] MEDICAL OFFICE BUILDING 2022-10-22 2022-10-25 Inpatient ER PANTERA CHAWLA Internal [id number] [facility] 05:22:00 14:24:00 Med 2022-10-22 2022-10-25 Hospital ER [facility] [id number] 05:22:00 14:24:00 Encounter Livia Brady Brunildaashkan [facility] 2022-10-22 2022-10-25 [facility] [id number] 05:22[facility]00 14:24:00 [facility] 2022-10-22 2022-10-22 Travel [facility] [id number] [facility] 00:[facility] 00:00:00 [facility] 2022-10-22 2022-10-22 Travel [facility] [id number] [facility] 00:[facility] 00[facility]00 [facility] 2022-10-21 2022-10-21 Outpatient Brock MÁRQUEZ [facility] [id number] Univers 15:45:00 15:45:00 CECILE flores [facility] 2022-10-21 2022-10-21 [facility] 1.2.840.114 [id number] Univers 00:00:00 00:00:00 [facility] 350.1.13.10 it y of [place] 4.2.7.2.686 Emanuel as JOLLY?BLEA [phone] Ms samir[address] MEDICAL OFFICE [facility] 2022-10-20 2022-10-20 Nurse BON Stark 1.2.840.114 [id number] Univers 00:00:00 00:00:00 Triage Kvng GALICIA 350.1.13.10 it y of HOSPITAL 4.2.7.2.686 Emanuel as [id number] [address] 2022-10-18 2022-10-19 Emergency Kemal Myers 1.2. 840.114 [id number] Univers 15:07:00 17:48:00 Geovanny Willis 350.1.13.10 ity [facility] 4.2.7.2.686 [place] [id number] [facility] [address] 2022-10-19 2022-10-19 Refill [facility] 1.2.585.618 [id number] [id number] Univers 00:00:00 00:00:00 Vern PRIMARY 350.1.13.10 it y of [facility] 4.2.7.2.686 [place] [id number] Ms dical [address] 2022-10-18 2022-10-18 Outpatient R ALVINA [facility] 1043 [id number] Univers 11:45:00 13:42:03 MARIBEL frias [facility] 2022-10-18 2022-10-18 Process Controls Technician 2, Adc Lab [facility] 1.2.840.114 [id number] Univers 11:45:00 13:42:03 Visit Maribel Cornelius 350.1.13. 10 ity [facility] 4.2.7.2.686 [place] [id number] Ms dical NAL [address] [facility] 2022-10-18 2022-10-18 Outpatient R ALVINA [facility] [id number] Univers 11:00:00 11:14:47 MARIBEL flores o altagracia [facility] 2022-10-18 2022-10-18 Office [facility] 1.2.840.114 [id number] Univers 11:00:00 11:14:47 Visit Maribel GREGORIO 350.1.13.10 ity of [facility] 4.2.7.2.686 [place] [id number] Ms dical NAL 204 [facility] 2022-10-18 2022-10-18 Orders Doctor OLGUIN 1.2.840.114 [id number] Univers 00:00:00 00:00:00 Only Unassigned, GRAYSON 350.1.13.10 ity of [place] [facility] 4.2.7.2.686 Emanuel as [id number] [facility] [address] 2022-10-18 2022-10-18 Telephone Rik [facility] 1.2.840.114 100 [id number] Univers 00:00:00 00:00:00 [facility] 350.1.13.10 it y of [place] [facility] 4.2.7.2.686 Emanuel as JOLLY?BLEA [id number] Ms gabi CHAIREZ [address] [place] [address] MEDICAL OFFICE [facility] 2022-10-15 2022-10-15 Outpatient R KASSIDY [facility] [id number] Univers 10:45:00 11:31:42 LAYNE ity [facility] 2022-10-15 2022-10-15 Office Beckie Walsh [facility] 1. 2.840.114 [id number] Univers 10:45:00 11:31:42 Visit Layne Yi SPECIALTY 350.1.13.10 ity of [facility] 4.2.7.2.686 [place] AT [phone] Ms gabi [address] [place] [address] 2022-10-12 2022-10-12 Refill [facility] 1.2.840.114 [id number] Univers 00:00:00 00:00:00 [facility] 350.1.13.10 it y of [place] [facility] 4.2.7.2.686 Emanuel as JOLLY?BLEA [id number] Ms gabi CHAIREZ [address] [place] [address] OFFICE [facility] 2022-10-07 2022-10-07 Emergency X NINO [facility] ERT [id number] Univers 11:11:00 13:18:00 DESTINY ity [facility] 2022-10-07 2022-10-07 Emergency [facility] 1.2.088.085 [id number] Univers 11:11:00 13:18:00 Destiny GREGORIO 350.1.13.10 i ty of [facility] 4.2.7.2.686 [place] CAMPUS [id number] [facility] [address] 2022-10-07 2022-10-07 Office Van [facility] 1.2.840.114 [id number] Univers 09:45:00 10:00:00 Visit [facility] 350.1.13.10 it y of [place] 4.2.7.2.686 Emanuel as JOLLY?BLEA [id number] [address] MEDICAL OFFICE [facility] 2022-10-07 2022-10-07 Outpatient R VAN [facility] [id number] Univers 09:45:00 08:37:42 ELISHA flores [facility] 2022-10-04 2022-10-04 [facility] 1.2.840.114 [id number] Univers 00:00:00 00:00:00 [facility] 350.1.13.10 it y of [place] 4.2.7.2.686 Emaunel as JOLLY?BLEA [id number] [address] OFFICE [facility] 2022-09-28 2022-09-28 Outpatient R [facility] [id number] Univers 08:00:00 08:00:00 TRAY mark [facility] 2022-09-10 2022-09-10 [facility] 1.2.840.114 [id number] Univers 00:00:00 00:00:00 [facility] 350.1.13.10 it y of [place] 4.2.7.2.686 Emanuel as JOLLY?BLEA [id number] [address] 2022-09-08 2022-09-[address] [facility] 1.2.840.114 [id number] Univers 00:00:00 00:00:00 [facility] 350.1.13.10 it y of [place] 4.2.7.2.686 Emanuel as JOLLY?BLEA [id number] [address] OFFICE [facility] 2022-09-08 2022-09-08 Nurse Delilah OLGUIN 12.840.114 99 [id number] Univers 00:00:00 00:00:00 Triage d, Melony GALICIA 350.1.13.10 ity of [facility] 4.2.7.2.686 Emanuel as [id number] [address] 2022-09-06 2022-09-06 Reffranchesca NisaALTA [facility] 1.2.840.114 [id number] Univers 00:00:00 00:00:00 Wondiful A HEALTH 350.1.13.10 ity of [place] 4.2.7.2.686 Emanuel as JOLYL?BLEA [id number] [address] OFFICE [facility] 2022-09-06 2022-09-06 Susan [facility] 1.2.979.934 [id number] Univers 00:00:00 00:00:00 Cecile JG 350.1.13.10 i ty of [place] 4.2.7.2.686 [place] [id number] [address] 2022-09-03 2022-09-03 Outpatient R MISTY [facility] [id number] Univers 11:30:00 11:48:06 KAMILLA flores [facility] 2022-09-03 2022-09-03 Office [facility] 1.2.840.114 [id number] Univers 11:30:00 11:48:06 Visit Kamilla [facility] 350.1.13.10 it y of [place] 4.2.7.2.686 Emanuel as JOLLY?BLEA [id number] [address] OFFICE [facility] 2022-08-24 2022-08-24 Outpatient R RIK [facility] [id number] Univers 09:00:00 09:00:00 TRAY flores [facility] 2022-08-24 2022-08-24 Office [facility] 1.2.840.114 [id number] Univers 09:00:00 09:00:00 Visit [facility] 350.1.13.10 it y of [place] 4.2.7.2.686 Emanuel as JOLLY?BLEA [id number] [address] OFFICE [facility] 2022-08-24 2022-08-24 Outpatient R RIK [facility] [id number] Univers 09:00:00 08:53:13 TRAY flores [facility] 2022-08-24 2022-08-24 [facility] 1.2.840.114 [id number] Univers 00:00:00 00:00:00 Wondiful A HEALTH 350.1.13.10 ity of [place] 4.2.7.2.686 Emanuel as JOLLY?BLEA [id number] [address] OFFICE [facility] 2022-08-22 2022-08-22 [facility] 1.2.840.114 [id number] Univers 00:00:00 00:00:00 Wondiful A HEALTH 350.1.13.10 ity of [place] 4.2.7.2.686 Emanuel as JOLLY?BLEA [id number] [address] OFFICE [facility] 2022-08-13 2022-08-13 Outpatient Brock DE LA TORRE [facility] [id number] Univers 14:00:00 14:00:00 AN ity of [facility] 2022-08-06 2022-08-06 Telephone [facility] 1.2.840.114 [id number] Univers 00:00:00 00:00:00 [facility] 350.1.13.10 it y of [place] [facility] 4.2.7.2.686 Emanuel as JOLLY?BLEA [id number] [address] 2022-08-05 2022-08-05 Orders Doctor OBN 1.2.840.114 [id number] Univers 00:00:00 00:00:00 Only Unassigned, GRAYSON 350.1.13.10 ity of [place] [facility] 4.2.7.2.686 Emanuel as [id number] [address] 2022-07-29 2022-07-[address] [facility] 1.2.840.114 [id number] Univers 00:00:00 00:00:00 Tray HEALTH 350.1.13.10 it y of [place] 4.2.7.2.686 Emanuel as JOLLY?BLEA [id number] [address] OFFICE [facility] 2022-07-27 2022-07-27 Outpatient R RIK [facility] [id number] Univers 08:00:00 08:25:43 TRAY ity of [facility] 2022-07-27 2022-07-27 Office [facility] 1.2.840.114 [id number] Univers 08:00:00 08:25:43 Visit Tray THAPA 350.1.13.10 it y of [place] [facility] 4.2.7.2.686 Emanuel as JOLLY?BLEA [phone] Ms samirroshan ARLENEKISHORE [address] [place] [address] MEDICAL OFFICE BUILDING 2022-07-19 2022-07-19 Orders Doctor BON 1.2.840.114 [id number] Univers 00:00:00 00:00:00 Only Unassigned, GRAYSON 350.1.13.10 ity of [place] [facility] 4.2.7.2.686 Emanuel as [id number] [address] 2022-07-08 2022-07-08 Refill [facility] 1.2.840.114 [id number] Univers 00:00:00 00:00:00 Tray GREGORIO 350.1.13.10 i ty of [facility] 4.2.7.2.686 [place] [id number] Ms gabi BARNEY [address] [place] [address] 2022-07-07 2022-07-07 Outpatient R STELLA WORLEY [facility] [id number] Univers 00:00:00 00:00:00 STELLA WORLEY y of [facility] 2022-07-01 2022-07-01 Orders Doctor OLGUIN 1.2.840.114 [id number] Univers 00:00:00 00:00:00 Only Unassigned, GRAYSON 350.1.13.10 ity of [place] [facility] 4.2.7.2.686 Emanuel as [id number] [address] 2022-06-30 2022-06-30 Outpatient R STELLA WORLEY [facility] [id number] Univers 09:34:33 23:59:00 STELLA WORLEY y of [facility] 2022-06-30 2022-06-30 Hospital Stella Worley [facility] 1.2.840.114 [id number] Univers 09:34:33 23:59:00 Encounter JG 350.1.13.10 ity of [place] 4.2.7.2.686 [place] [id number] [facility] [address] 2022-06-30 2022-06-30 Hospital Stella Worley [facility] 1.2.840.114 [id number] Univers 09:34:16 23:59:00 Encounter JG 350.1.13.10 ity of [place] 4.2.7.2.686 [place] [id number] [facility] [address] 2022-06-30 2022-06-30 Orders Doctor BON 1.2.840.114 [id number] Univers 00:00:00 00:00:00 Only Unassigned, GRAYSON 350.1.13.10 ity of [place] [facility] 4.2.7.2.686 Emanuel [id number] [facility] [address] 2022-06-30 2022-06-30 Telephone Stella Worley [facility] 1.2.840.114 [id number] Univers 00:00:00 00:00:00 HEALTH 350.1.13.10 it y of [place] 4.2.7.2.686 [place] [id number] [address] OFFICE BUILDING 2022-06-24 2022-06-24 Outpatient R STELLA WORLEY [facility] [id number] Univers 00:00:00 00:00:00 STELLA WORLEY it y of [facility] 2022-06-24 2022-06-24 Telephone Stella Worley [facility] 1.2.840.114 [id number] Univers 00:00:00 00:00:00 HEALTH 350.1.13.10 it y of [place] 4.2.7.2.686 [place] [id number] [address] OFFICE BUILDING 2022-06-21 2022-06-21 Outpatient R RIK [facility] [id number] Univers 11:00:00 11:00:00 TRAY ity of [facility] 2022-06-21 2022-06-21 Telephone Rik [facility] 1.2.840.114 [id number] Univers 00:00:00 00:00:00 Tray HEALTH 350.1.13.10 it y of [place] 4.2.7.2.686 Emanuel as JOLLY?BLEA [id number] Ms gabi CHAIREZ [address] MEDICAL OFFICE BUILDING 2022-06-17 2022-06-17 Office Stella Worley [facility] 1.2.840.114 [id number] Univers 11:00:00 11:30:00 Visit HEALTH 350.1.13.10 it y of [place] 4.2.7.2.686 [place] JOHN [id number] [address] OFFICE BUILDING 2022-06-17 2022-06-17 Outpatient R STELLA WORLEY [facility] [id number] Univers 11:00:00 11:00:00 STELLA WORLEY it y of [facility] 2022-06-17 2022-06-17 Refill Brunilda [facility] 1.2.840.114 [id number] Univers 00:00:00 00:00:00 HEALTH 350.1.13.10 it y of [place] 4.2.7.2.686 [place] bar[place] LYNN [id number] [address] OFFICE BUILDING 2022-06-17 2022-06-17 Orders Doctor BON 1.2.840.114 [id number] Univers 00:00:00 00:00:00 Only Unassigned, GRAYSON 350.1.13.10 ity of [place] [facility] 4.2.7.2.686 Emanuel as [id number] [address] 2022-06-16 2022-06-[address] [facility] 1.2.840.114 [id number] Univers 00:00:00 00:00:00 [facility] 350.1.13.10 it y of [place] 4.2.7.2.686 Emanuel as JOLLY?BLEA [phone] Ms gabi CHAIREZ 044 [facility] OFFICE BUILDING 2022-06-15 2022-06-15 Outpatient R RIK [facility] [id number] Univers 08:00:00 08:25:29 TRAY ity of [facility] 2022-06-15 2022-06-[address] [facility] 1.2.840.114 [id number] Univers 08:00:00 08:25:29 Visit [facility] 350.1.13.10 it y of [place] 4.2.7.2.686 Emanuel as JOLLY?BLEA [phone] Ms gabi CHAIREZ 044 [facility] OFFICE BUILDING 2022-06-14 2022-06-14 Telephone [facility] 1.2.840.114 [id number] Univers 00:00:00 00:00:00 Cecile GREGORIO 350.1.13.10 i ty of [place] [phone] Ms gabi BARNEY 188 [facility] 2022-06-11 2022-06-[address] [facility] 1.2.840.114 [id number] Univers 00:00:00 00:00:00 [facility] 350.1.13.10 it y of [place] 4.2.7.2.686 Emanuel as JOLLY?BLEA [phone] [facility] [address] OFFICE [facility] 2022-06-09 2022-06-[address] [facility] 1.2.840.114 [id number] Univers 00:00:00 00:00:00 Tray HEALTH 350.1.13.10 it y of [place] 4.2.7.2.686 Emanuel as JOLLY?BLEA [phone] [address] OFFICE [facility] 2022-06-04 2022-06-04 RefStella Hamilton [facility] 1.2.840.114 [id number] Univers 00:00:00 00:00:00 HEALTH 350.1.13.10 [place]2.[place] JOHN [phone] [address] OFFICE BUILDING 2022-06-04 2022-06-04 Telephone Ry Edge [facility] 1.2.840.114 [id number] Univers 00:00:00 00:00:00 HEALTH 350.1.13.10 it y of [place] 4.2.7.2.686 Emanuel as JOLLY?BLEA [phone] Ms gabi [address] OFFICE [facility] 2022-06-04 2022-06-04 [facility] 1.2.010.747 [id number] Univers 00:00:00 00:00:00 Cecile GREGORIO 350.1.13.10 i ty of [place]7.2.[place] PROFESS[place] [phone] [address] 2022-06-03 2022-06-03 Outpatient R STELLA WORLEY [facility] [id number] Univers 09:30:00 09:30:00 STELLA WORLEY it y of [facility] 2022-06-02 2022-06-02 Stella Barrow [facility] 1.2.840.114 [id number] Univers 00:00:00 00:00:00 HEALTH 350.1.13.10 [place]2.[place] LY[place] [phone] [address] OFFICE [facility] [facility] 2022-06-02 2022-06-02 Stella Barrow [facility] 1.2.840.114 [id number] Univers 00:00:00 00:00:00 HEALTH 350.1.13.10 it y of [place] [id number] [address] OFFICE [facility] 2022-06-02 2022-06-02 Telephone Lakeshia [facility] 1.2.840.114 [id number] Univers 00:00:00 00:00:00 Cecile BYERSCHRISTELLE 350.1.13.10 i ty of [place] 4.2.7.2.[place] [id number] [address] 2022-06-01 2022-06-01 Orders Doctor BON 1.2.840.114 [id number] Univers 00:00:00 00:00:00 Only Unassigned, GRAYSON 350.1.13.10 ity of [place] [facility] 4.2.7.2.686 Emanuel as [id number] [address] 2022-06-01 2022-06-01 Susan Worley Stella [facility] 1.2.840.114 [id number] Univers 00:00:00 00:00:00 HEALTH 350.1.13.10 it y of [place] [id number] [address] OFFICE BUILDING 2022-06-01 2022-06-01 Reffranchesca Márquez [facility] 1.2.543.728 [id number] Univers 00:00:00 00:00:00 Cecile GREGORIO 350.1.13.10 i ty of [place] 4.2.7.2.686 [place] [id number] Ms dicroshan [facility] 188 [facility] 2022-05-28 2022-05-28 [facility] 1.2.840.114 [id number] Univers 00:00:00 00:00:00 [facility] 350.1.13.10 it y of [place] 4.2.7.2.686 Emanuel as JOLLY?BLEA [phone] Ms gabi JACOBSEY 044 [facility] OFFICE BUILDING 2022-05-26 2022-05-26 RefStella Hamilton [facility] 1.2.840.114 [id number] Univers 00:00:00 00:00:00 HEALTH 350.1.13.10 it y of [place] [id number] [address] OFFICE [facility] 2022-05-18 2022-05-18 Outpatient R DAPHNEY SÁNCHEZ [facility] [id number] Univers 09:00:00 09:00:00 ity of [facility] 2022-05-17 2022-05-17 Outpatient R RIK [facility] [id number] Univers 09:00:00 09:00:00 TRAY ity of [facility] 2022-05-13 2022-05-13 Orders Doctor BON 1..840.114 [id number] Univers 00:00:00 00:00:00 Only Unassigned, GRAYSON 350.1.13.10 ity of [place] [facility] 4.2.7.2.686 Emanuel as [id number] [address] 2022-05-13 2022-05-13 Telephone [facility] 1.2.840.114 [id number] Univers 00:00:00 00:00:00 [facility] 350.1.13.10 it y of [place] 4.2.7.2.686 Emanuel as JOLLY?BLEA [phone] Ms gabi CHAIREZ 044 [facility] OFFICE BUILDING 2022-05-10 2022-05-10 Outpatient Brock JOLLY [facility] [id number] Univers 16:15:00 16:15:00 TRAY ity [facility] 2022-05-10 2022-05-10 Outpatient R BRUNILDA STELLA [facility] [id number] Univers 00:00:00 00:00:00 STELLA WORLEY it y of [facility] 2022-05-06 2022-05-06 Telephone Stella Worley [facility] 1.2.840.114 [id number] Univers 00:00:00 00:00:00 HEALTH 350.1.13.10 it y of [place] 4.2.7.2.[place] [id number] [facility] [address] OFFICE [facility] 2022-05-06 2022-05-06 Orders Doctor BON 1.2.840.114 [id number] Univers 00:00:00 00:00:00 Only Unassigned, GRAYSON 350.1.13.10 ity of [place] [facility] 4.2.7.2.686 Emanuel as [id number] [facility] [address] 2022-04-29 2022-04-29 Outpatient Brock AGUILAR [facility] [id number] Univers 14:00:00 14:00:00 BON y [facility] 2022-04-14 2022-04-14 Outpatient VIK TAVERA [facility] [id number] Univers 09:00:00 09:00:00 ity [facility] 2022-04-12 2022-04-12 Susan [facility] 1.2.840.114 [id number] Univers 00:00:00 00:00:00 Ricardo GREGORIO 350.1.13.10 ity of [place] 4.2.7.2.686 [place] [id number] Ms samirroshan BARNEY 059 [facility] 2022-04-09 2022-04-09 Outpatient Brock BARR [facility] [id number] Univers 11:00:00 11:00:00 ISAC ity [facility] 2022-04-08 2022-04-08 [facility] Agustina [facility] 1.2.840.114 [id number] Univers 08:30:00 23:59:00 Encounter Sheri HEALTH 350.1.13.10 ity of [place] 4.2.7.2.686 [place] [id number] [facility] [address] OFFICE BUILDING 2022-04-08 2022-04-08 Outpatient R AGUSTINA [facility] [id number] Univers 08:30:00 23:59:00 KAMBEV ity o f [facility] 2022-04-08 2022-04-08 Telephone Stella Worley [facility] 1.2.840.114 [id number] Univers 00:00:00 00:00:00 HEALTH 350.1.13.10 it y of [place] 4.2.7.2.686 [place] [id number] [address] OFFICE BUILDING 2022-04-02 2022-04-02 Outpatient R MARY JANE [facility] [id number] Univers 09:30:00 09:30:00 AN flores [facility] 2022-03-31 2022-03-31 Telephone Rik [facility] 1.2.840.114 [id number] Univers 00:00:00 00:00:00 Tray [facility] 350.1.13.10 it y of [place] 4.2.7.2.686 Emanuel as JOLLY?BLEA [phone] Ms dicroshan CHAIREZ 044 [facility] OFFICE [facility] 2022-03-27 2022-03-27 Emergency [facility] 1.2.285.167 [id number] [id number] Univers 07:48:00 08:22:00 Destiny GREGORIO 350.1.13.10 i ty of [place] 4.2.7.2.686 [place] [phone] [address] 2022-03-27 2022-03-27 Emergency X [facility] ERT [id number] Univers 07:48:00 08:22:00 DESTINY flores [facility] 2022-03-27 2022-03-27 Orders Doctor OLGUIN 1.2.840.114 [id number] Univers 00:00:00 00:00:00 Only Unassigned, GRAYSON 350.1.13.10 ity of [place] [facility] 4.2.7.2.686 Emanuel as [id number] [address] 2022-03-24 2022-03-[address] [facility] 1.2.840.114 [id number] [id number] Univers 00:00:00 00:00:00 Tray HEALTH 350.1.13.10 it y of [place] 4.2.7.2.686 Emanuel as JOLLY?BLEA [id number] [address] MEDICAL OFFICE [facility] 2022-03-19 2022-03-19 Orders Doctor BON 1.2.840.114 [id number] Univers 00:00:00 00:00:00 Only Unassigned, GRAYSON 350.1.13.10 ity of [place] [facility]OS[facility]ITAL 4.2.7.2.686 Emanuel as [id number] [address] 2022-03-19 2022-03-[address] [facility] 1.2.840.114 [id number] Univers 00:00:00 00:00:00 Jfk [facility] HEALTH 350.1.13.10 it y of [place] 4.2.7.2.686 Emanuel as JOLLY?BLEA [id number] [address] OFFICE [facility] 2022-03-17 2022-03-[address] [facility] 1.2.840.114 [id number] Univers 00:00:00 00:00:00 Tray HEALTH 350.1.13.10 it y of [place] 4.2.7.2.686 Emanuel as JOLLY?BLEA [phone] [address] MEDICAL OFFICE [facility] 2022-03-12 2022-03-12 Stella Barrow [facility] 1.2.840.114 [id number] Univers 00:00:00 00:00:00 HEALTH 350.1.13.10 it y of [place] 4.2.7.2.686 [place] [id number] [facility] [address] OFFICE BUILDING 2022-03-08 2022-03-[address] [facility] 1.2.840.114 [id number] Univers 00:00:00 00:00:00 [facility] 350.1.13.10 it y of [place] [facility] 4.2.7.2.686 Emanuel as JOLLY?BLEA [phone] Ms gabi CONTRERAS [address] MEDICAL OFFICE BUILDING 2022-03-02 2022-03-02 Outpatient R [facility] MARCUS [id number] Univers 07:39:00 11:22:00 CECILE ity of [facility] 2022-03-02 2022-03-02 [facility] 1.2.840.114 [id number] Univers 07:39:00 11:22:00 Encounter Cecile GREGORIO 350.1.13.10 ity of [place] 4.2.7.2.686 [place] SURGICAL [phone] [facility] [address] 2022-03-02 2022-03-02 Surgery [facility] 1.2.226.251 [id number] [id number] Univers 09:11:00 10:25:00 Cecile JG 350.1.13.10 i ty of [place] 4.2.7.2.686 [place] [phone] [facility] [address] 2022-03-02 2022-03-02 Orders Doctor BON 1.2.840.114 [id number] Univers 00:00:00 00:00:00 Only Unassigned, GRAYSON 350.1.13.10 ity of [place] [facility]OSPITAL 4.2.7.2.686 Emanuel as [id number] [facility] [address] 2022-03-01 2022-03-01 Telephone [facility] 1.2.840.114 [id number] Univers 00:00:00 00:00:00 Cecile BYERSCHRISTELLE 350.1.13.10 i ty of [place] 4.2.7.2.686 [place] [id number] Ms dical NAL [address] [facility] 2022-03-01 2022-03-01 Refill [facility] 1.2.840.114 [id number] Univers 00:00:00 00:00:00 Ricardo GREGORIO 350.1.13.10 ity of [place] 4.2.7.2.686 [place] [id number] Ms dical NAL 059 [facility] 2022-02-25 2022-02-25 Outpatient R RIK [facility] [id number] Univers 11:00:00 11:00:00 TRAY ity of [facility] 2022-02-25 2022-02-25 Telephone Stella Worley [facility] 1.2.840.114 [id number] Univers 00:00:00 00:00:00 HEALTH 350.1.13.10 it y of [place] 4.2.7.2.686 [place] [id number] [place] [address] OFFICE [facility] 2022-02-24 2022-02-24 [facility] 1.2.840.114 [id number] Univers 00:00:00 00:00:00 Tray HEALTH 350.1.13.10 it y of [place] 4.2.7.2.686 Emanuel as JOLLY?BLEA [phone] Ms dical [address] MEDICAL OFFICE [facility] 2022-02-23 2022-02-[address] [facility] 1.2.840.114 [id number] [id number] Univers 00:00:00 00:00:00 Tray HEALTH 350.1.13.10 it y of [place] 4.2.7.2.686 Emanuel as JOLLY?BLEA [phone] Ms dicroshan [address] MEDICAL OFFICE [facility] 2022-02-22 2022-02-22 Susan [facility] 1.2.840.114 [id number] Univers 00:00:00 00:00:00 Wondiful A HEALTH 350.1.13.10 ity of [place] 4.2.7.2.686 Emanuel as JOLLY?BLEA [id number] Ms dical [address] MEDICAL OFFICE BUILDING 2022-02-18 2022-02-[address] [facility] 1.2.840.114 [id number] Univers 00:00:00 00:00:00 Secure Msg Tray HEALTH 350.1.13.10 ity of [place] 4.2.7.2.686 Emanuel as JOLLY?BLEA [phone] [address] OFFICE [facility] 2022-02-18 2022-02-18 [facility] 1.2.840.114 [id number] [id number] Univers 00:00:00 00:00:00 Tray GREGORIO 350.1.13.10 i ty of [place] 4.2.7.2.686 [place] [facility] [id number] [address] 2022-02-16 2022-02-16 [facility] [id number] Univers 09:15:00 09:30:10 TRAY flores [facility] 2022-02-16 2022-02-[address] [facility] 1.2.840.114 [id number] Univers 09:15:00 09:30:10 Visit [facility] 350.1.13.10 it y of [place] 4.2.7.2.686 Emanuel as JOLLY?BLEA [id number] [address] OFFICE [facility] 2022-02-16 2022-02-16 Outpatient R RIK [facility] [id number] Univers 09:15:00 09:15:00 TRAY flores [facility] 2022-02-16 2022-02-16 Telephone Vik Oliveira [facility] 1..840.114 [id number] Univers 00:00:00 00:00:00 HEALTH 350.1.13.10 it y of [place] 4.2.7.2.686 [place] [id number] [address] OFFICE [facility] 2022-02-15 2022-02-15 Outpatient Brock HENRIQUEZ [facility] [id number] Univers 15:15:00 15:15:00 CAPRICE alanjay [facility] 2022-02-14 2022-02-14 Nurse BON Zarate 1..275.143 [id number] [id number] Univers 00:00:00 00:00:00 Triage Young GALICIA 350.1.13.10 it y of [facility] 4.2.7.2.686 Emanuel as [id number] [address] 2022-02-12 2022-02-12 [facility]phone [facility] 1..840.114 [id number] [id number] Univers 00:00:00 00:00:00 Tray HEALTH 350.1.13.10 it y of [place] 4.2.7.2.686 Emanuel as JOLLY?BLEA 254.5726496 Ms gabi CHAIREZ [address] [place] [address] OFFICE BUILDING 2022-02-11 2022-02-11 Telephone Stella Worley [facility] 1.2.840.114 [id number] Univers 00:00:00 00:00:00 HEALTH 350.1.13.10 it y of [place] 4.2.7.2.686 [place] [id number] [address] OFFICE BUILDING 2022-02-11 2022-02-11 Telephone RoxanneVik Tirso [facility] 1.2.840.114 [id number] Univers 00:00:00 00:00:00 HEALTH 350.1.13.10 it y of [place] 4.2.7.2.686 [place] [id number] [address] OFFICE [facility] 2022-02-10 2022-02-10 Outpatient R NAV ANTONIO [facility] [id number] Univers 00:00:00 00:00:00 ity of [facility] 2022-02-10 2022-02-10 Outpatient NAV GIANG [facility] [id number] Univers 00:00:00 00:00:00 ity of [facility] 2022-02-10 2022-02-10 Orders Doctor OLGUIN 1.2.840.114 [id number] Univers 00:00:00 00:00:00 Only Unassigned, GRAYSON 350.1.13.10 ity of [place] [facility] 4.2.7.2.686 Emanuel as [id number] [address] 2022-02-08 2022-02-08 Outpatient R STELLA WORLEY [facility] [id number] Univers 10:00:00 11:34:48 STELLA WORLEY it y of [facility] 2022-02-08 2022-02-08 Office Stella Worley [facility] 1.2.840.114 [id number] Univers 10:00:00 11:34:48 Visit HEALTH 350.1.13.10 it y of [place] 4.2.7.2.686 [place] [id number] [place] [address] [address] OFFICE BUILDING 2022-02-01 2022-02-01 Telephone Momo [facility] 1.2.629.120 [id number] [id number] Univers 00:00:00 00:00:00 Isac Forrester HEALTH 350.1.13.10 it y of [place] 4.2.7.2.686 Emanuel as JOLLY?BLEA [id number] Ms gabi CHAIREZ [address] MEDICAL OFFICE BUILDING 2022-01-28 2022-01-28 Orders Doctor BON 1.2.840.114 [id number] Univers 00:00:00 00:00:00 Only Unassigned, GRAYSON 350.1.13.10 ity of [place] [facility] 4.2.7.2.686 Emanuel as [id number] [address] 2022-01-27 2022-01-27 Telephone [facility] 1.2.840.114 [id number] Univers 00:00:00 00:00:00 Tray HEALTH 350.1.13.10 it y of [place] 4.2.7.2.686 Emanuel as JOLLY?BLEA 252.1832825 Ms gabi CHAIREZ 044 [facility] OFFICE [facility] 2022-01-27 2022-01-27 Telephone [facility] 1.2.840.114 [id number] Univers 00:00:00 00:00:00 Tray HEALTH 350.1.13.10 it y of [place] 4.2.7.2.686 Emanuel as JOLLY?BLEA [id number] Ms gabi CHAIREZ [address] MEDICAL OFFICE [facility] 2022-01-27 2022-01-27 Telephone Vik Oliveira [facility] 1.2.840.114 [id number] Univers 00:00:00 00:00:00 HEALTH 350.1.13.10 it y of [place] 4.2.7.2.686 [place] [id number] [address] OFFICE [facility] 2022-01-25 2022-01-25 Outpatient R MARY JANE [facility] [id number] Univers 10:20:49 23:59:00 AN flores of [facility] 2022-01-25 2022-01-25 [facility] 1.2.840.114 [id number] Univers 10:00:00 23:59:00 Encounter An العراقي JG 350.1.13.10 ity of [place] 4.2.7.2.686 [place] [facility] [id number] [place] [address] [place] 2022-01-25 2022-01-25 Out[facility] [id number] Univers 00:00:00 00:00:00 AN flores [facility] 2022-01-25 2022-01-25 Orders Doctor BON 1.2.840.114 [id number] Univers 00:00:00 00:00:00 Only Unassigned, GRAYSON 350.1.13.10 ity of [place] [facility]OSPITAL 4.2.7.2.686 Emanuel as [id number] [address] 2022-01-22 2022-01-22 [facility] 1.2.840.114 [id number] Univers 00:00:00 00:00:00 Tray HEALTH 350.1.13.10 it y of [place] [facility] 4.2.7.2.686 Emanuel as JOLLY?BLEA [id number] [address] MEDICAL OFFICE [facility] 2022-01-22 2022-01-22 Orders Doctor BON 1.2.840.114 [id number] Univers 00:00:00 00:00:00 Only Unassigned, GRAYSON 350.1.13.10 ity of [place] [facility] 4.2.7.2.686 Emanuel as [id number] [address] 2022-01-21 2022-01-21 [facility] 1.2.840.114 [id number] Univers 00:00:00 00:00:00 Wondiful A HEALTH 350.1.13.10 [facility]y [facility] 4.2.7.2.686 Emanuel as JOLLY?BLEA [phone] [address] MEDICAL OFFICE [facility] 2022-01-20 2022-01-20 Susan [facility] 1.2.840.114 [id number] Univers 00:00:00 00:00:00 Wondiful A HEALTH 350.1.13.10 ity of [place] 4.2.7.2.686 Emanuel as JOLLY?BLEA [phone] Ms gabi CHAIREZ 044 [facility] 2022-01-19 2022-01-[address] [facility] 1.2.840.114 [id number] Univers 00:00:00 00:00:00 Tray HEALTH 350.1.13.10 it y of [place] 4.2.7.2.686 Emanuel as JOLLY?BLEA [phone] Ms gabi JACOBS[address] OFFICE [facility] 2022-01-18 2022-01-[address] [facility] 1.2.840.114 [id number] Univers 00:00:00 00:00:00 Tray HEALTH 350.1.13.10 it y of [place] 4.2.7.2.686 Emanuel as JOLLY?BLEA [id number] [address] 2022-01-13 2022-01-13 Telephone RUST 1.2.840.114 [id number] Univers 00:00:00 00:00:00 [facility]ava [facility] 350.1.13.10 i ty [facility] 4.2.7.2.686 [place] [id number] Ms gabi [address] 2022-01-11 2022-01-11 Outpatient Brock BARR [facility] [id number] Univers 14:45:00 23:59:00 [facility] 2022-01-11 2022-01-11 Outpatient Brock BARR [facility] [id number] Univers 14:45:00 23:59:00 [facility] 2022-01-11 2022-01-11 Office [facility] 1.2.840.114 [id number] Univers 13:45:00 14:00:00 [facility] 350.1.13.10 it y of [place] 4.2.7.2.686 Emanuel as JOLLY?BLEA [phone] Ms dicroshan JACOBS 198 [facility] 2022-01-11 2022-01-11 Outpatient [facility] [id number] Univers 13:45:00 13:45:00 ISAC itjay of [facility] 2022-01-07 2022-01-[address] [facility] 1.2.840.114 [id number] [facility] 00:00:00 00:00:00 Tray HEALTH 350.1.13.10 it y of [place] 4.2.7.2.686 Emanuel as JOLLY?BLEA [id number] [address] OFFICE [facility] 2022-01-06 2022-01-06 Telephone [facility] 1.2.840.114 [id number] [facility] 00:00:00 00:00:00 Wondiful A HEALTH 350.1.13.10 ity of [place] 4.2.7.2.686 Emanuel as JOLLY?BLEA [id number] [address] 2022-01-05 2022-01-[address] [facility] 1.2.840.114 [id number] [id number] Univers 00:00:00 00:00:00 Tray HEALTH 350.1.13.10 it y of [place] 4.2.7.2.686 Emanuel as JOLLY?BLEA [id number] [address] 2022-01-04 2022-01-[address] [facility] 1.2.840.114 [id number] [id number] Univers 00:00:00 00:00:00 Tray HEALTH 350.1.13.10 it y of [place] 4.2.7.2.686 Emanuel as JOLLY?BLEA [phone] [address] 2021-12-31 2021-12-[address] [facility] 1.2.840.114 [id number] [id number] Univers 00:00:00 00:00:00 Tray HEALTH 350.1.13.10 it y of [place] 4.2.7.2.686 Emanuel as JOLLY?BLEA [phone] [address] 2021-12-31 2021-12-[address] [facility] 1.2.840.114 [id number] [id number] Univers 00:00:00 00:00:00 [facility] 350.1.13.10 it y of [place] 4.2.7.2.686 Emanuel as JOLLY?BLEA [id number] Ms gabi CHAIREZ 044 [facility] OFFICE [facility] 2021-12-30 2021-12-30 Patient Jessie [facility] 1.2.840.114 [id number] Univers 00:00:00 00:00:00 Outreach Genesis Shah [facility] 350.1.13.10 ity of JG 4.2.7.2.686 Emanuel as PROFESSIO [phone] [address] ONE 2021-12-28 2021-12-28 Outpatient [facility] [id number] Univers 09:30:00 10:07:08 CECILE [facility] 2021-12-28 2021-12-28 Outpatient R [facility] [id number] Univers 09:30:00 10:07:[address] [facility] 2021-12-28 2021-12-28 Office [facility] 1.2.274.362 [id number] [id number] Univers 09:30:00 10:07:08 Visit Cecile [facility] 350.1.13.10 i ty of [place] 4.2.7.2.686 [place] [phone] [facility] 188 [facility] 2021-12-24 2021-12-24 Outpatient R [facility] [id number] Univers 14:00:00 14:00:00 ity [facility] 2021-12-24 2021-12-24 Patient Rik [facility] 1.2.840.114 [id number] Univers 00:00:00 00:00:00 Secure Msg [facility] 350.1.13.10 ity of [place] 4.2.7.2.686 Emanuel as JOLLY?BLEA [phone] Ms samiria CONTRERAS [address] [place] [address] OFFICE [facility] 2021-12-22 2021-12-22 [facility]phone [facility] 1.2.840.114 [id number] Univers 00:00:00 00:00:00 Cecile GREGORIO 350.1.13.10 i ty [place] [id number] Ms gabi BARNEY [address] [employer] 2021-12-16 2021-12-16 [facility] 1.2.840.114 [id number] Univers 00:00:00 00:00:00 [facility] 350.1.13.10 it y of [place] 4.2.7.2.686 Emanuel as JOLLY?BLEA [phone] Ms gabi JACOBSEY [address] MEDICAL OFFICE [facility] 2021-12-11 2021-12-11 Surgery [facility] [id number] Univers 10:33:00 11:46:00 Cecile BYERSCHRISTELLE 350.1.13.10 i ty [place] SUR[place] [id number] [address] 2021-12-11 2021-12-11 Surgery [facility] [id number] Univers 10:33:00 11:46:00 Cecile JG 350.1.13.10 i ty [place] [id number] [address] 2021-12-11 2021-12-11 Surgery [facility] 1.2.720.147 [id number] Univers 10:33:00 11:46:00 Cecile GREGORIO 350.1.13.10 i ty [place] [id number] [address] 2021-12-11 2021-12-11 Outpatient R [facility] MARC[facility] [id number] Univers 08:40:00 11:25:00 CECILE flores of [facility] 2021-12-11 2021-12-11 [facility] 1.2.840.114 [id number] Univers 08:40:00 11:25:00 Encounter Cecile JG 350.1.13.10 it[place]ICAL [id number] [facility] [address] 2021-12-11 2021-12-11 [facility] [id number] Univers 08:40:00 11:25:00 CECILE flores [facility] 2021-12-11 2021-12-11 [facility] [id number] Univers 08:40:00 11:25:00 CECILE flores [facility] 2021-12-11 2021-12-11 Orders Doctor BON 1.2.840.114 [id number] Univers 00:00:00 00:00:00 Only Unassigned, GRAYSON 350.1.13.10 ity of [place] [facility] 4.2.7.2.686 Emanuel as [phone] [address] 2021-12-09 2021-12-09 Telephone [facility] 1.2.840.114 [id number] Univers 00:00:00 00:00:00 Wondiful [facility] 350.1.13.10 ity of [place] 4.2.7.2.686 Emanuel as JOLLY?BLEA [phone] Ms gabi CHAIREZ [address] MEDICAL OFFICE [facility] 2021-12-08 2021-12-08 Outpatient R [facility] [id number] Univers 13:00:00 13:00:00 ity of [facility] 2021-12-08 2021-12-[address] [facility] 1.2.840.114 [id number] Univers 00:00:00 00:00:00 Tray HEALTH 350.1.13.10 it y of [place] 4.2.7.2.686 Emanuel as JOLLY?BLEA [phone] Ms gabi CHAIREZ [address] MEDICAL OFFICE [facility] 2021-12-08 2021-12-[address] [facility] 1.2.840.114 [id number] Univers 00:00:00 00:00:00 Tray HEALTH 350.1.13.10 it y of [place] 4.2.7.2.686 Emanuel as JOLLY?BLEA [phone] Ms dicroshan CHAIREZ [address] MEDICAL OFFICE [facility] 2021-12-03 2021-12-03 Outpatient R MARITZA [facility] [id number] Univers 13:30:00 13:30:00 ORPHEUS ity of [facility] 2021-12-03 2021-12-03 Telephone Márquez [facility] 1.2.840.114 [id number] Univers 00:00:00 00:00:00 Cecile GREGORIO 350.1.13.10 i ty of [place].2.[place] [phone] Ms gabi BARNEY 188 [facility] 2021-12-03 2021-12-03 Telephone [facility] 1..840.114 [id number] Univers 00:00:00 00:00:00 Wondiful A HEALTH 350.1.13.10 ity of [place] 4.2.7.2.686 Emanuel as PROFESSIO [id number] [address] ONE 2021-12-01 2021-12-01 [facility] [id number] Univers 14:15:00 14:54:12 WONDIFUL ity o f [facility] 2021-12-01 2021-12-01 Office [facility] 1..840.114 [id number] Univers 14:15:00 14:54:12 Visit Wondiful A HEALTH 350.1.13.10 ity of [place] 4.2.7.2.686 Emanuel as JOLLY?BLEA [id number] Ms gabi CHAIREZ 044 [facility] OFFICE [facility] 2021-12-01 2021-12-01 Outpatient [facility] [id number] Univers 14:15:00 14:54:12 WONDIFUL ity o f [facility] 2021-12-01 2021-12-01 Patient Scot [facility] 1..840.114 [id number] Univers 00:00:00 00:00:00 Outreach Vik Bernadette HEALTH 350.1.13.10 i ty of [place] 4.2.7.2.686 Emanuel as JOLLY?BLEA [phone] Ms samirroshan ARLENEKISHORE 044 [facility] OFFICE BUILDING 2021-12-01 2021-12-01 Patient [facility] 1.2.840.114 [id number] Univers 00:00:00 00:00:00 Outreach Vik [facility] 350.1.13.10 i jonas justin [place] 4.2.7.2.686 Emanuel as JOLLY?BLEA [phone] [facility] [address] MEDICAL OFFICE BUILDING 2021-11-18 2021-11-18 Outpatient [facility] [id number] Univers 10:00:00 10:44:34 WONDIFUL ity o f [facility] 2021-11-18 2021-11-18 Outpatient R NISA, [facility] [id number] Univers 10:00:00 10:44:34 WONDIFUL ity o f [facility] 2021-11-18 2021-11-18 Outpatient R NISA [facility] [id number] Univers 10:00:00 10:00:00 WONDIFUL ity o f [facility] 2021-11-18 2021-11-18 Outpatient R NISA [facility] [id number] Univers 10:00:00 10:00:00 WONDIFUL ity o f [facility] 2021-11-18 2021-11-18 Outpatient R NISA [facility] [id number] Univers 10:00:00 10:00:00 WONDIFUL ity o f [facility] 2021-11-16 2021-11-16 Outpatient R LAKESHIA [facility] [id number] Univers 09:30:00 09:30:[address] [facility] 2021-11-16 2021-11-16 Outpatient R LAKESHIA [facility] [id number] Univers 09:30:00 09:30:[address] [facility] 2021-11-16 2021-11-16 Outpatient R LAKESHIA [facility] [id number] Univers 09:30:00 09:30:[address] [facility] 2021-11-15 2021-11-15 Emergency [facility] ERT [id number] Univers 09:06:00 12:49:00 DESTINY [facility] 2021-11-15 2021-11-15 Emergency [facility] 1.2.480.907 [id number] Univers 09:06:00 12:49:00 Destiny GREGORIO 350.1.13.10 i ty of [place].2.[place] [id number] [facility] [address] 2021-11-15 2021-11-15 Emergency [facility] ERT [id number] Univers 09:06:00 12:49:00 DESTINY ity of [facility] 2021-11-10 2021-11-10 Telephone [facility] 1.2.840.114 [id number] Univers 00:00:00 00:00:00 Wondiful A HEALTH 350.1.13.10 ity of [place] 4.2.7.2.686 Emanuel as JOLLY?BLEA [id number] [address] OFFICE [facility] 2021-11-05 2021-11-05 Orders Doctor BON 1.2.840.114 [id number] Univers 00:00:00 00:00:00 Only Unassigned, GRAYSON 350.1.13.10 ity of [place] [facility] 4.2.7.2.686 Emanuel as [phone] [facility] [address] [place] 2021-11-05 2021-11-05 Telephone [facility] 1.2.840.114 [id number] Univers 00:00:00 00:00:00 Wondiful A HEALTH 350.1.13.10 ity of [place] 4.2.7.2.686 Emanuel as JOLLY?BLEA [id number] [address] OFFICE [facility] 2021-11-03 2021-11-03 Telephone [facility] 1.2.840.114 [id number] Univers 00:00:00 00:00:00 Wondiful A HEALTH 350.1.13.10 ity of [place] 4.2.7.2.686 Emanuel as JOLLY?BLEA [phone] [address] OFFICE [facility] 2021-11-03 2021-11-03 Telephone [facility] 1.2.840.114 [id number] Univers 00:00:00 00:00:00 Wondiful A HEALTH 350.1.13.10 ity of [place] 4.2.7.2.686 Emanuel as JOLLY?BLEA [phone] Ms samirroshan CHAIREZ [address] MEDICAL OFFICE BUILDING 2021-10-27 2021-10-27 Case Daphney Sánchez 1.2.840.114 [id number] Univers 00:00:00 00:00:00 Management H 350.1.13.10 ity of [facility] 4.2.7.2.686 Emanuel as [phone] [address] 2021-10-26 2021-10-26 Telephone Daphney Sánchez 1.2.840.114 [id number] Univers 00:00:00 00:00:00 H 350.1.13.10 it y of [facility] 4.2.7.2.686 Emanuel as [id number] [address] 2021-10-23 2021-10-23 Telephone Jaymie NCFRANDY 1.2.448.632 [id number] Univers 00:00:00 00:00:00 Corry GREGORIO 350.1.13.10 it[facility] 4.2.7.2.[place] [phone] Ms samirroshan [facility] 188 [facility] 2021-10-22 2021-10-22 Outpatient Brock BARR [facility] [id number] Univers 14:45:00 14:45:00 ISAC ity [facility] 2021-10-22 2021-10-22 Outpatient Brock BARR [facility] [id number] Univers 14:45:00 14:45:00 ISAC ity [facility] 2021-10-22 2021-10-22 Outpatient Brock BARR [facility] [id number] Univers 14:45:00 14:45:00 ISAC ity [facility] 2021-10-22 2021-10-22 Outpatient Brock BARR [facility] [id number] Univers 14:45:00 14:45:00 ISAC ity [facility] 2021-10-19 2021-10-19 Telephone Nisa NCFRANDY 1.2.840.114 [id number] Univers 00:00:00 00:00:00 Wondiful A HEALTH 350.1.13.10 ity of [place] 4.2.7.2.686 Emanuel as JOLLY?BLEA [phone] Ms gabi JACOBSEY 044 [facility] 2021-10-13 2021-10-13 Outpatient R JAYMIE [facility] [id number] Univers 10:30:00 10:41:12 CORRY flores [facility] 2021-10-13 2021-10-13 Office [facility] 1.2.840.114 [id number] Univers 10:30:00 10:41:12 Visit Corry GREGORIO 350.1.13.10 ity of [place] 4.2.7.2.686 [place] [phone] Ms gabi BARNEY 204 [facility] 2021-10-13 2021-10-13 Outpatient [facility] [id number] Univers 10:30:00 10:41:12 CORRY flores [facility] 2021-09-29 2021-09-29 Outpatient R [facility] [id number] Univers 16:14:01 23:59:00 CAPRICE flores [facility] 2021-09-29 2021-09-29 Outpatient R [facility] [id number] Univers 16:14:01 23:59:00 CAPRICE flores [facility] 2021-09-29 2021-09-29 [facility] 1.2.840.114 [id number] Univers 16:14:01 23:59:00 Encounter Caprice L HEALTH 350.1.13.10 [facility] 4.2.7.2.686 Emanuel as JOLLY?BLEA [phone] Ms gabi CHAIREZ 809 [facility] 2021-09-29 2021-09-29 Outpatient R [facility] [id number] Univers 16:14:01 23:59:00 CAPRICE flores [facility] 2021-09-29 2021-09-29 Office [facility] 1.2.840.114 [id number] Univers 16:00:00 16:58:02 Visit Isac S HEALTH 350.1.13.10 it y of [place] 4.2.7.2.686 Emanuel as JOLLY?BLEA [phone] Ms dical CONTRERAS [address] MEDICAL OFFICE BUILDING 2021-09-29 2021-09-29 Outpatient Brock BARR [facility] [id number] Univers 16:00:00 16:58:02 ISAC ity [facility] 2021-09-29 2021-09-29 Outpatient Brock BARR [facility] [id number] Univers 16:00:00 16:58:02 ISAC ity [facility] 2021-09-29 2021-09-29 [facility] [id number] Univers 16:00:00 16:00:00 [facility] 2021-09-24 2021-09-24 Outpatient [facility] [id number] Univers 14:00:00 14:00:00 [facility] 2021-09-19 2021-09-19 Nurse Caprice Ozuna 1.2.840.114 [id number] Univers 00:00:00 00:00:00 Triage GRAYSON 350.1.13.10 it y of [facility] 4.2.7.2.686 Emanuel as [id number] [address] 2021-09-09 2021-09-09 Prep For [facility] 1.2.840.114 [id number] Univers 00:00:00 00:00:00 Surgery Corry GREGORIO 350.1.13.10 ity of [place].2.[place] [phone] Ms dical NAL 204 [facility] 2021-09-08 2021-09-08 Office [facility] 1.2.788.019 [id number] Univers 14:30:00 16:16:36 Visit Cecile GREGORIO 350.1.13.10 i ty of [place] 4.[place].7.2.686 [place] [id number] Ms dical NAL 188 [facility] 2021-09-08 2021-09-08 Outpatient [facility] [id number] Univers 14:30:00 16:16:36 CECILE flores [facility] 2021-09-08 2021-09-08 Outpatient R LAKESHIA [facility] [id number] Univers 14:30:00 16:16:36 CECILE flores [facility] 2021-09-08 2021-09-08 Outpatient R MÁRQUEZ [facility] [id number] Univers 14:30:00 14:30:00 CECILE ity [facility] 2021-09-08 2021-09-08 Orders Doctor OLGUIN 1.2.840.114 [id number] Univers 00:00:00 00:00:00 Only Unassigned, GRAYSON 350.1.13.10 ity of [place] [facility] 4.2.7.2.686 Emanuel as [phone] [address] 2021-09-02 2021-09-02 Outpatient R FLORENCE [facility] [id number] Univers 14:00:00 14:00:00 CAPRICE flores [facility] 2021-08-31 2021-08-31 Orders Doctor OLGUIN 1.2.840.114 [id number] Univers 00:00:00 00:00:00 Only Unassigned, GRAYSON 350.1.13.10 ity of [place] [facility] 4.2.7.2.686 Emanuel as [id number] [address] 2021-08-26 2021-08-26 Outpatient R NISA [facility] [id number] Univers 10:45:00 11:58:51 WONDIFUL ity o f [facility] 2021-08-26 2021-08-26 Outpatient R NISA [facility] [id number] Univers 10:45:00 11:58:51 WONDIFUL ity o f [facility] 2021-08-26 2021-08-26 Outpatient R NISA [facility] [id number] Univers 10:45:00 11:58:51 WONDIFUL ity o f [facility] 2021-08-26 2021-08-26 Outpatient R NISA [facility] [id number] Univers 10:45:00 11:58:51 WONDIFUL ity o f [facility] 2021-08-26 2021-08-26 Office Nisa [facility] 1.2.840.114 [id number] Univers 10:34:47 11:58:51 Visit Wondiful A HEALTH 350.1.13.10 ity of [place] 4.2.7.2.686 Emanuel as JOLLY?BLEA [phone] Ms gabi CHAIREZ [address] MEDICAL OFFICE BUILDING 2021-08-17 2021-08-17 Case Nisa [facility] 1.2.840.114 [id number] Univers 00:00:00 00:00:00 Management Wondiful A HEALTH 350.1.13.10 ity of [place] 4.2.7.2.686 Emanuel as JOLLY?BLEA [id number] [address] MEDICAL OFFICE [facility] 2021-08-13 2021-08-13 Outpatient [facility] [id number] Univers 07:58:20 23:59:00 WONDIFUL ity o f [facility] 2021-08-13 2021-08-13 Hospital [facility] 1.2.073.564 [id number] Univers 07:58:20 23:59:00 Encounter Wondiful A [place] 350.1.13.10 ity of [place] 4.2.7.2.686 [place] [phone] [facility] [address] 2021-08-13 2021-08-13 Outpatient R NISA [facility] [id number] Univers 07:58:20 23:59:00 WONDIFUL ity o f [facility] 2021-08-13 2021-08-13 Process Controls Technician Kevin Soni Lab Main [facility] 1.2.8 40.114 [id number] Univers 07:57:57 08:12:57 Visit Andrea Paula [place] 350.1.13. 10 ity of [place] 4.2.7.2.686 [place] [facility] [phone] Ms gabi [facility] 353 [facility] 2021-08-13 2021-08-13 Outpatient [facility] [id number] Univers 00:00:00 00:00:00 WONDIFUL ity o f [facility] 2021-08-04 2021-08-04 Outpatient [facility] [id number] Univers 15:30:00 15:42:52 WONDIFUL ity o f [facility] 2021-08-04 2021-08-04 Outpatient R NISA [facility] [id number] Univers 15:30:00 15:42:52 WONDIFUL ity o f [facility] 2021-08-04 2021-08-04 Outpatient R NISA [facility] [id number] Univers 15:30:00 15:42:52 WONDIFUL ity o f [facility] 2021-08-04 2021-08-04 Outpatient R NISA [facility] [id number] Univers 15:30:00 15:42:52 WONDIFUL ity o f [facility] 2021-08-04 2021-08-04 Outpatient R NISA [facility] [id number] Univers 15:30:00 15:42:52 WONDIFUL ity o f [facility] 2021-08-04 2021-08-04 Office [facility] 1.2.840.114 [id number] Univers 14:30:05 15:42:52 Visit Wondiful A HEALTH 350.1.13.10 ity [facility] 4.2.7.2.686 Emanuel as JOLLY?BLEA [id number] [address] MEDICAL OFFICE [facility] 2021-08-04 2021-08-04 Outpatient Brock PAULA [facility] [id number] Univers 15:30:00 15:30:00 WONDIFUL ity o [facility] 2021-08-03 2021-08-03 Pre Visit BON Edmondson 1.2.840.114 [id number] Univers 00:00:00 00:00:00 Outreach Jorge GALICIA 350.1.13.10 i ty [facility] 4.2.7.2.686 Emanuel as [phone] [address] 2021-07-15 2021-07-15 Outpatient Brock YU [facility] [id number] Univers 14:20:00 14:20:00 SHORTY ity o [facility] 2021-07-15 2021-07-15 Outpatient Brock YU [facility] [id number] Univers 14:20:00 14:20:00 SHORTY ity o f [facility] 2021-07-15 2021-07-15 Outpatient R AIMEE [facility] [id number] Univers 14:20:00 14:20:00 SHORTY ity o f [facility] 2021-07-15 2021-07-15 Outpatient R AIMEE [facility] [id number] Univers 14:20:00 14:20:00 SHORTY flores o altagracia [facility] 2021-07-14 2021-07-14 Reffranchesca [facility] 1.2.840.114 [id number] Univers 00:00:00 00:00:00 Wondiful A Health 350.1.13.10 ity of [place] 4.2.7.2.686 Emanuel as Professio [phone] [address] One 2021-07-10 2021-07-10 Outpatient Kautz_S DMG [facility] [id number] Devoted 05:13:00 05:13:00 1015 Medica l Group 2021-07-02 2021-07-[address] [facility] 1.2.840.114 [id number] [facility] Univers 00:00:00 00:00:00 Wondiful A Health 350.1.13.10 ity of [place] 4.2.7.2.686 Emanuel as Professio [phone] [address] One 2021-06-15 2021-06-15 Orders Doctor BON 1.2.840.114 [id number] Univers 00:00:00 00:00:00 Only Unassigned, GRAYSON 350.1.13.10 ity of [place] [facility] 4.2.7.2.686 Emanuel as [id number] [facility] [address] 2021-06-08 2021-06-08 Patient Grupo Garcia 1.2.840.114 [id number] Univers 00:00:00 00:00:00 Outreach Emily Chahal Chavarria 350.1.13.10 ity of [place] 4.2.7.2.686 [place] [phone] [facility] [address] 2021-06-08 2021-06-08 Refill Vik Oliveira [facility] 1.2.840.114 [id number] Univers 00:00:00 00:00:00 Health 350.1.13.10 it y of [place] 4[place]2.7.2.686 [place] [phone] [place] 782262 Branch Office Building 2021-05-25 2021-05-25 Emergency X DREVER, [facility] ERT [id number] Univers 18:22:00 20:23:00 LAUREEN ity [facility] 2021-05-25 2021-05-25 Emergency X DREVER, [facility] ERT [id number] Univers 18:22:00 20:23:00 LAUREEN ity [facility] 2021-05-25 2021-05-25 Emergency X DREVER, [facility] ERT [id number] Univers 18:22:00 20:23:00 LAUREEN ity [facility] 2021-05-25 2021-05-25 Emergency X DREVER, [facility] ERT [id number] Univers 18:22:00 20:23:00 LAUREEN ity [facility] 2021-05-25 2021-05-25 Emergency X DREVER, [facility] ERT [id number] Univers 18:22:00 20:23:00 LAUREEN ity [facility] 2021-05-25 2021-05-25 Emergency Drever, [facility] 1..084.152 [id number] Univers 18:22:00 20:23:00 Laureen [place] 350.1.13.10 ity of [place] 4.2.7.2.686 [facility] [phone] [address] 2021-05-21 2021-05-21 Outpatient R LAILA ORELLANA [facility] [id number] Univers 09:30:00 09:30:00 LAILA ORELLANA i [facility] 2021-05-19 2021-05-19 Reffranchesca Paula [facility] 1.2.840.114 [id number] Univers 00:00:00 00:00:00 Wondiful A Health 350.1.13.10 ity of [place] 4.2.7.2.686 Emanuel as Professio [phone] Ms dical nal 044 [facility] One 2021-05-14 2021-05-14 Outpatient R PRINCESSCASPERI [facility] [id number] Univers 09:00:00 09:00:00 ity [facility] 2021-05-09 2021-05-09 [place] [id number] Devoted 11:00:00 11:00:00 0814 Medica l Group 2021-05-08 2021-05-08 [facility] [id number] Univers 07:37:21 23:59:00 CAPRICE ity [facility] 2021-05-08 2021-05-08 Outpatient R FLORENCE [facility] [id number] Univers 07:37:21 23:59:00 CAPRICE ity [facility] 2021-05-08 2021-05-08 Outpatient [facility] [id number] Univers 07:37:21 23:59:00 [place] [facility] 2021-05-08 2021-05-08 Outpatient [facility] [id number] Univers 07:37:21 23:59:00 [place] [facility] 2021-05-08 2021-05-08 Outpatient R MOMO [facility] [id number] Univers 08:15:00 08:15:00 ISAC ity [facility] 2021-05-07 2021-05-07 Outpatient DMG [id number] Devoted 12:00:00 12:00:00 0812 Medica l Group 2021-04-27 2021-04-27 Susan [facility] 1.2.840.114 [id number] Univers 00:00:00 00:00:00 [facility] 350.1.13.10 it y of [place] 4.2.7.2.686 Emanuel as PROFESSIO [phone] Ms dical NAL 044 [facility] ONE 2021-04-21 2021-04-21 Outpatient R NISA [facility] [id number] Univers 15:45:00 15:45:00 WONDIFUL ity o f [facility] 2021-04-07 2021-04-07 Outpatient R ELISHA, [facility] [id number] Univers 09:20:00 09:20:00 VINEET flores [facility] 2021-04-02 2021-04-02 Outpatient R MOMO, [facility] [id number] Univers 08:45:00 08:45:00 ISAC jay [facility] 2021-04-01 2021-04-01 Emergency X ONEILL, [facility] ERT [id number] Univers 13:00:00 15:36:00 DESTINY flores [facility] 2021-04-01 2021-04-01 Emergency X NINO, [facility] ERT [id number] Univers 13:00:00 15:36:00 DESTINY flores [facility] 2021-04-01 2021-04-01 Emergency X NINO, [facility] ERT [id number] Univers 13:00:00 15:36:00 DESTINY jay [facility] 2021-04-01 2021-04-01 Outpatient R [facility] [id number] Univers 08:45:00 08:45:00 mark [facility] 2021-03-28 2021-03-28 Outpatient R BELLA, [facility] [id number] Univers 09:40:00 09:40:00 CHELA mark o altagracia [facility] 2021-03-27 2021-03-27 Outpatient R MARY JANE, [facility] [id number] Univers 09:30:00 09:30:00 AN jay [facility] 2021-03-26 2021-03-26 Outpatient R MOMO [facility] [id number] Univers 15:15:00 15:15:00 ISAC [facility] 2021-03-25 2021-03-25 Outpatient R JAYMIE, [facility] [id number] Univers 08:30:00 08:30:00 CORRY [facility] 2021-03-23 2021-03-23 Outpatient R STEFFANIE, [facility] [id number] Univers 08:00:00 08:00:00 EMERY ity o f [facility] 2021-03-20 2021-03-20 Emergency X Tatiana MITCHELL [facility] ERT [id number] Univers 19:09:00 19:47:00 ity of [facility] 2021-03-20 2021-03-20 Emergency X STEPHEN, K [facility] ERT [id number] Univers 19:09:00 19:47:00 ity of [facility] 2021-03-20 2021-03-20 Emergency X STEPHEN, K [facility] ERT [id number] Univers 19:09:00 19:47:00 ity [facility] 2021-03-18 2021-03-18 Outpatient Brock HENRIQUEZ, [facility] NUT [id number] Univers 00:00:00 00:00:00 CAPRICE ity [facility] 2021-03-12 2021-03-12 Outpatient Brock BARR [facility] [id number] Univers 08:30:00 08:30:00 [facility] 2021-03-11 2021-03-11 Outpatient Brock BARR [facility] [id number] Univers 16:15:00 16:15:00 [facility] 2021-03-10 2021-03-10 [facility] 1.2.840.114 [id number] Univers 00:00:00 00:00:00 [facility] [id number] it y of CLEAR [id number] [facility] barry LYNN [phone] [place] [id number] [place] OFFICE BUILDING 2021-02-25 2021-02-25 Outpatient Brock BARR [facility] [id number] Univers 14:30:00 14:30:00 [facility] 2021-02-25 2021-02-25 [facility] [id number] 00:00:00 00:00:00 [facility] Kaley [place] [id number] [place] [id number] Professio [phone] nal 059 Building 2021-02-24 2021-02-24 Outpatient Brock PAULA [facility] [id number] Univers 11:00:00 11:00:00 WONDIFUL ity o f [facility] 2021-02-19 2021-02-19 Outpatient R FLORENCE [facility] [id number] Univers 10:03:49 23:59:00 CAPRICE flores [facility] 2021-02-19 2021-02-19 Outpatient R FLORENCE [facility] [id number] Univers 00:00:00 00:00:00 CAPRICE flores [facility] 2021-02-17 2021-02-17 Outpatient R [facility] [id number] Univers 17:40:00 17:40:00 ity [facility] 2021-02-17 2021-02-17 Outpatient R JONA [facility] [id number] Univers 17:40:00 17:17:33 [facility] 2021-02-17 Outpatient R JONA [facility] [id number] Univers 17:40:00 17:17:33 [facility] 2021-[facility]-17 2021-02-17 Outpatient R JONA [facility] [id number] Univers 17:40:00 17:17:33 [facility] 2021-[facility]-10 2021-02-10 Outpatient R ATUL [facility] [id number] Univers 09:00:00 [facility] 2021-02-09 Outpatient R MOMO [facility] [id number] Univers 14:45:00 14:45:00 [facility] 2021-02-09 2021-02-09 Outpatient R MOMO [facility] [id number] Univers 14:45:00 14:45:00 [facility] 2021-02-04 2021-02-04 Outpatient R MRACELINA VALERA [facility] [id number] Univers 10:30:00 10:30:00 MARCELINA VALERA [facility] 2021-02-03 2021-02-03 Outpatient R NISA [facility] [id number] Univers 16:30:00 16:30:00 WONDIFUL ity o f [facility] 2021-01-27 2021-01-27 Outpatient R NAV ANTONIO [facility] [id number] Univers 15:00:00 15:00:00 ity [facility] 2021-01-21 2021-01-21 Outpatient R ATUL, [facility] [id number] Univers 11:00:00 11:00:00 SENDIL [facility] 2021-01-20 2021-01-20 Outpatient R DAPHNEY SÁNCHEZ [facility] [id number] Univers 11:00:00 11:00:00 [facility] 2021-01-14 2021-01-14 Outpatient R RIK, [facility] [id number] Univers 10:45:00 10:45:00 TRAY [facility] 2021-01-08 2021-01-08 Outpatient R MOMO, [facility] [id number] Univers 08:45:00 08:45:00 ISAC [facility] 2021-01-06 2021-01-06 Outpatient R AIMEE, [facility] [id number] Univers 11:00:00 11:00:00 SHORTY ity o f [facility] 2021-01-01 2021-01-01 Outpatient R NISA, [facility] [id number] Univers 15:00:00 15:00:00 WONDIFUL ity o f [facility] 2021-01-01 2021-01-01 Outpatient R NISA, [facility] [id number] Univers 15:00:00 15:00:00 WONDIFUL ity o f [facility] 2021-01-01 2021-01-01 Outpatient R NISA, [facility] [id number] Univers 15:00:00 15:00:00 WONDIFUL ity o f [facility] 2021-01-01 2021-01-01 Outpatient R NISA, [facility] [id number] Univers 15:00:00 15:00:00 WONDIFUL ity o f [facility] 2020-12-13 2020-12-13 Outpatient [facility] [id number] Univers 08:25:00 08:25:00 ity [facility] 2020-12-13 2020-12-13 Outpatient R BELGICA, [facility] [id number] Univers 08:25:00 08:25:00 TAMMY ity [facility] 2020-12-13 2020-12-13 Outpatient R BELGICA, [facility] [id number] Univers 08:25:00 08:25:00 TAMMY ity [facility] 2020-12-13 2020-12-13 Outpatient R BELGICA, [facility] [id number] Univers 08:25:00 08:25:00 TAMMY ity [facility] 2020-12-02 2020-12-02 Outpatient R JAKE, [facility] [id number] Univers 09:00:00 09:00:00 LIANA ity [facility] 2020-12-02 2020-12-02 Outpatient R JAKE, [facility] [id number] Univers 09:00:00 09:00:00 LIANA ity [facility] 2020-12-02 2020-12-02 Outpatient R JAKE, [facility] [id number] Univers 09:00:00 09:00:00 LIANA ity [facility] 2020-12-02 2020-12-02 Outpatient R JAKE, [facility] [id number] Univers 09:00:00 09:00:00 [facility] 2020-11-22 2020-11-22 Outpatient R BELGICA, [facility] [id number] Univers 09:40:00 09:40:00 TAMMY ity [facility] 2020-11-22 2020-11-22 Outpatient R BELGICA, [facility] [id number] Univers 09:40:00 09:40:00 TAMMY ity [facility] 2020-11-22 2020-11-22 Outpatient R BELGICA, [facility] [id number] Univers 09:40:00 09:40:00 [facility] 2020-11-21 2020-11-21 Outpatient R DONOVAN [facility] [id number] Univers 14:00:00 14:00:00 LAKISHA [facility] 2020-11-20 2020-11-20 Outpatient R LAILA ORELLANA [facility] [id number] Univers 15:00:00 15:00:00 LAILA ORELLANA i [facility] 2020-11-09 2020-11-09 Outpatient R ELISHA [facility] [id number] Univers 08:20:00 08:20:00 VINEET itjay [facility] 2020-11-09 2020-11-09 Outpatient R ELISHA [facility] [id number] Univers 08:20:00 08:20:00 VINEET itjay [facility] 2020-11-09 2020-11-09 Outpatient R ELISHA [facility] [id number] Univers 08:20:00 08:20:00 [facility] 2020-11-07 2020-11-07 Outpatient R VIK OLIVEIRA [facility] [id number] Univers 11:30:00 11:30:00 [facility] 2020-11-06 2020-11-06 Outpatient R NISA, [facility] [id number] Univers 08:15:00 08:15:00 WONDIFUL ity o f [facility] 2020-10-16 2020-10-16 Outpatient R ELISHA [facility] [id number] Univers 18:00:00 18:00:00 VINEET [facility] 2020-10-02 2020-10-02 Outpatient R MOMO, [facility] [id number] Univers 10:15:00 10:15:00 ISAC [facility] 2020-09-22 2020-09-22 Outpatient R STEFFANIE, [facility] [id number] Univers 08:00:00 08:00:00 EMERY ity o f [facility] 2020-09-15 2020-09-15 Outpatient R NISA [facility] [id number] Univers 00:00:00 00:00:00 WONDIFUL ity o f [facility] 2020-09-15 2020-09-15 Outpatient R NISA [facility] [id number] Univers 00:00:00 00:00:00 WONDIFUL ity o f [facility] 2020-09-14 2020-09-14 Outpatient R JONA [facility] [id number] Univers 08:40:00 08:40:00 ROGE [facility] 2020 2020 Outpatient R NISA, [facility] [id number] Univers 00:00:00 00:00:00 WONDIFUL ity o f [facility] 2020-09-10 2020-09-10 Outpatient R DONITA, [facility] [id number] Univers 08:00:00 08:00:00 SHANTI flores of [facility] 2020-09-08 2020-09-08 Outpatient R SELF, [facility] [id number] Univers 08:00:00 08:00:00 EMERY ity o f [facility] 2020-09-04 2020-09-04 Outpatient R NISA, [facility] [id number] Univers 16:00:00 16:00:00 WONDIFUL ity o f [facility] 2020-08-25 2020-08-25 Outpatient R NISA, [facility] [id number] Univers 11:00:00 11:13:03 WONDIFUL ity o f [facility] 2020-08-25 2020-08-25 Outpatient R NISA, [facility] [id number] Univers 10:30:00 10:30:00 WONDIFUL ity o f [facility] 2020-08-06 2020-08-06 Outpatient R PATRICIO, [facility] [id number] Univers 10:20:00 10:20:00 BALJIT flores [facility] 2020-08-06 2020-08-06 Outpatient R PATRICIO, [facility] [id number] Univers 09:00:00 09:00:00 BALJIT ity [facility] 2020-08-01 2020-08-01 Outpatient R MARY JANE, [facility] [id number] Univers 10:00:00 10:00:00 AN aalnjay [facility] 2020-07-18 2020-07-18 Outpatient R LAILA ORELLANA [facility] [id number] Univers 11:00:00 11:00:00 LAILA ORELLANA i [facility] 2020-07-17 2020-07-17 Outpatient R VIK OLIVEIRA [facility] [id number] Univers 12:00:00 12:00:00 ity [facility] 2020-07-14 2020-07-14 Outpatient R NISA, [facility] [id number] Univers 10:45:00 10:45:00 WONDIFUL ity o f [facility] 2020-07-07 2020-07-07 Outpatient R MAKSIM [facility] [id number] Univers 08:30:00 08:30:00 AUBRIE ity [facility] 2020-06-27 2020-06-27 Outpatient R NISA, [facility] [id number] Univers 15:15:00 15:15:00 WONDIFUL ity o f [facility] 2020-06-12 2020-06-12 Outpatient R MAKSIM, [facility] [id number] Univers 15:45:00 15:45:00 AUBRIE [facility] 2020-06-05 2020-06-05 Outpatient R MOMO, [facility] [id number] Univers 10:30:00 10:30:00 [facility] 2020-06-03 2020-06-03 [facility] [id number] Univers 09:00:00 09:00:00 SENDIL ity [facility] 2020-05-16 2020-05-16 Outpatient R OLIVEIRAVIK [facility] [id number] Univers 16:30:00 16:30:00 ity [facility] 2020-05-09 2020-05-09 Outpatient R [facility] [id number] Univers 10:20:00 10:20:00 ity [facility] 2020-04-21 2020-04-21 Outpatient R ARGENIS, [facility] [id number] Univers 11:40:00 11:40:00 DORITA [facility] 2020-04-18 2020-04-18 Outpatient R ATUL, [facility] [id number] Univers 09:30:00 09:30:00 SENDIL ity [facility] 2020-04-15 2020-04-15 Outpatient R [facility] [id number] Univers 10:20:00 10:20:00 ity [facility] 2020-04-04 2020-04-04 Outpatient R [facility] [id number] Univers 10:00:00 10:00:00 ity [facility] 2020-04-01 2020-04-01 Outpatient R [facility] [id number] Univers 08:00:00 08:00:00 ity [facility] 2020-03-20 2020-03-20 Outpatient R ROMARIO, [facility] [id number] Univers 10:00:00 10:00:00 FABRICIO [facility] 2020-03-10 2020-03-10 Outpatient R MIKAYLA, [facility] [id number] Univers 08:45:00 08:45:00 CL [facility] 2020-03-03 2020-03-03 Outpatient R MAKSIM, [facility] [id number] Univers 08:00:00 08:00:00 AUBRIE [facility] 2020-01-22 2020-01-22 Outpatient R MOMO, [facility] [id number] Univers 15:45:00 15:45:00 [facility] 2020-01-22 2020-01-22 Outpatient R MOMO [facility] [id number] Univers 10:45:00 10:45:00 [facility] 2020-01-18 2020-01-18 Outpatient R DAPHNEY SÁNCHEZ [facility] [id number] Univers 11:30:00 11:30:00 [facility] 2020-01-11 2020-01-11 Outpatient R LAILA ORELLANA [facility] [id number] Univers 11:00:00 11:00:00 LAILA ORELLANA i ty [facility] 2020-01-10 2020-01-10 Outpatient R NISA, [facility] [id number] Univers 10:00:00 10:00:00 WONDIFUL ity o f [facility] 2020-01-04 2020-01-04 Outpatient R ROXANNE VIK [facility] [id number] Univers 11:30:00 11:30:00 ity [facility] 2020-01-01 2020-01-01 Outpatient R [facility] [id number] Univers 08:00:00 08:00:00 ity [facility] 2019-12-21 2019-12-21 Outpatient R NISA, [facility] [id number] Univers 09:30:00 09:30:00 WONDIFUL ity o f [facility] 2019-12-06 2019-12-06 Outpatient R ROMARIO, [facility] [id number] Univers 11:00:00 11:00:00 FABRICIO [facility] 2019-11-30 2019-11-30 Outpatient Brock BARR [facility] [id number] Univers 10:30:00 10:30:00 [facility] 2019-11-29 2019-11-29 Outpatient Brock BARR [facility] [id number] Univers 08:15:00 08:15:00 [facility] 2019-11-23 2019-11-23 Outpatient Brock [facility] [id number] Univers 08:00:00 08:00:00 [facility] Results Test Description Test Time Test Comments Results Result Comments Source CBC W/AUTO DIFF 2022-11-24 11:07:00 Test Item Value Reference Range Interpretation Comme nts WHITE BLOOD CELL (test code = WBC) 6.1 K/mm3 4.5-11.0 N RED BLOOD CELL (test code = RBC) 2.60 M/mm3 3.80-5.20 L HEMOGLOBIN (test code = HGB) 7.8 gm/dL 12.0-16.0 L HEMATOCRIT (test code = HCT) 23.3 % 36.0-48.0 L MEAN CELL VOLUME (test code = MCV) 89.6 UM3 82.0-99.0 N MEAN CELL HGB (test code = MCH) 30.0 UUG 25.5-32.5 N MEAN CELL HGB CONCETRATION (test code = MCHC) 33.5 gm/dL 29.0-35. 5 N RED CELL DISTRIBUTION WIDTH (test code = RDW) 18.7 % 11.5-15. 0 H RED CELL DISTRIBUTION WIDTH SD (test code = RDW-SD) 52.6 fL 34 .8-50.2 H PLATELET COUNT (test code = PLT) 163 K/mm3 150-400 N MEAN PLATELET VOLUME (test code = MPV) 12.3 fl 7.4-10.4 H NEUTROPHIL % (test code = NT%) 72.5 % 49.0-76.0 N IMMATURE GRANULOCYTE % (test code = IG%) 5.9 % 0.0-0.4 H LYMPHOCYTE % (test code = LY%) 13.1 % 23.0-38.0 L MONOCYTE % (test code = MO%) 5.2 % 1.0-10.0 N EOSINOPHIL % (test code = EO%) 2.3 % 1.0-5.0 N BASOPHIL % (test code = BA%) 1.0 % 0.0-1.0 N NUCLEATED RBC % (test code = NRBC%) 1.0 % 0.0-0.1 H NEUTROPHIL # (test code = NT#) 4.5 K/mm3 2.4-6.3 N IMMATURE GRANULOCYTE # (test code = IG#) 0.36 x10 3/uL 0.00-0.07 H LYMPHOCYTE # (test code = LY#) 0.8 K/mm3 1.2-4.0 L MONOCYTE # (test code = MO#) 0.3 K/mm3 0.0-0.6 N EOSINOPHIL # (test code = EO#) 0.1 K/MM3 0.0-0.7 N BASOPHIL # (test code = BA#) 0.1 K/mm3 0.0-0.2 N NUCLEATED RBC # (test code = NRBC#) 0.06 X10 3uL 0.00-0.01 H - XR CHEST 1 [id number] 07:31:00 [facility] : 1975 Sex: F FAX:Rancho Bess MD [phone] [place]: St: [facility] FAX: Neris Estrada MD [phone] Name: [facility]: 1975 Age/S: 47/F [address] [facility] Unit #: [id number] Loc: [address] [place], [place]: [place] [address] Acct: [id number] Dis Date: Status: ADM IN PHONE #: [phone] Exam Date: 11/24/2022 0600 FAX #: [phone] Reason: sob EXAMS: CPT CODE: [id number] XR CHEST 1 V 31594 EXAM: - XR CHEST 1 V COMPARISON: 11/23/2022 LOCATION: C3 HISTORY: sob FINDINGS: Single view of the chest. No indwelling lines or tubes. No pneumothorax. The lungs are clear without significant effusions. The mediastinal contours are unremarkable/unchanged. No acute osseous findings are present. IMPRESSION: No acute cardiopulmonary abnormality. at 0731 Reported and signed by: Herve Verdugo M.D. CC: Rancho Oreilly MD; Neris Gaines Technologist: KEI HERNANDEZ [facility] Date/Time/By: 11/24/2022 (0731) : By: [email or web address] PAGE 1 Signed Report FAX: Rancho Bess MD [phone] [place]: St: [facility] FAX: Neris Estrada MD [phone] Name: LIZBET LANDRY [facility] : 1975 Age/S: 47/F [address] [facility] [employer] Unit #: [id number] Loc:[address] [place], [place]: [place] [address] Acct: [id number] Dis Date: Status: ADM IN PHONE #: [phone] Exam Date: 11/24/2022 06 FAX #: [phone] Reason: sob EXAMS: CPT CODE: [id number] XR CHEST 1 V 32100 (Continued) Orig Print D/T: S: 11/24/2022 (0734) PAGE 2 Signed [id number] 20:15:00 Test Item Value Reference Range Interpretation Comments GLUBED (test code = GLUBED) 95 mg/dL 70-110 N [id number] 14:54:00 Test Item Value Reference Range Interpretation Comments GLUBED (test code = GLUBED) 99 mg/dL 70-110 N [id number] 11:21:00 Test Item Value Reference Range Interpretation Comments GLUBED (test code = GLUBED) 103 mg/dL 70-110 N CBC W/AUTO [id number] 08:38:00 Test Item Value Reference Range Interpretation Comments WHITE BLOOD CELL (test code = 5.6 K/mm3 4.5-11.0 N WBC) RED BLOOD CELL (test code = 2.57 M/mm3 3.80-5.20 L RBC) HEMOGLOBIN (test code = HGB) 8.0 gm/dL 12.0-16.0 L HEMATOCRIT (test code = HCT) 23.5 % 36.0-48.0 L MEAN CELL VOLUME (test code = 91.4 UM3 82.0-99.0 MCV) MEAN CELL HGB (test code = MCH) 31.1 UUG 25.5-32.5 N MEAN CELL HGB CONCETRATION 34.0 gm/dL 29.0-35.5 N (test code = MCHC) RED CELL DISTRIBUTION WIDTH 18.9 % 11.5-15.0 H (test code = RDW) RED CELL DISTRIBUTION WIDTH SD 53.7 fL 34.8-50.2 H (test code = RDW-SD) PLATELET COUNT (test code = 147 K/mm3 150-400 L PLT) MEAN PLATELET VOLUME (test code 12.3 fl 7.4-10.4 H = MPV) NEUTROPHIL % (test code = NT%) 73.5 % 49.0-76.0 N IMMATURE GRANULOCYTE % (test 1.1 % 0.0-0.4 H code = IG%) LYMPHOCYTE % (test code = LY%) 15.1 % 23.0-38.0 L MONOCYTE % (test code = MO%) 6.5 % 1.0-10.0 N EOSINOPHIL % (test code = EO%) 2.9 % 1.0-5.0 N BASOPHIL % (test code = BA%) 0.9 % 0.0-1.0 N NUCLEATED RBC % (test code = 0.5 % 0.0-0.1 H NRBC%) NEUTROPHIL # (test code = NT#) 4.1 K/mm3 2.4-6.3 N IMMATURE GRANULOCYTE # (test 0.06 x10 3/uL 0.00-0.07 N code = IG#) LYMPHOCYTE # (test code = LY#) 0.8 K/mm3 1.2-4.0 L MONOCYTE # (test code = MO#) 0.4 K/mm3 0.0-0.6 N EOSINOPHIL # (test code = EO#) 0.2 K/MM3 0.0-0.7 N BASOPHIL # (test code = BA#) 0.1 K/mm3 0.0-0.2 N NUCLEATED RBC # (test code = 0.03 X10 3uL 0.00-0.01 H NRBC#) [id number] 07:26:00 Test Item Value Reference Range Interpretation Comments GLUBED (test code = GLUBED) 73 mg/dL 70-110 N - XR CHEST 1 [id number] 06:44:00 [facility] : 1975 Sex: F FAX:Rancho Bess MD [phone] [place]: St: [facility] FAX: Neris Estrada MD [phone] Name: LIZBET LANDRY [facility] : 1975 Age/S: 47/F [address] [facility] Unit #: [id number] Loc: [address] Phys: [place] [address] Acct: [id number] Dis Date: Status: ADM IN PHONE #: [phone] Ex am Date: 11/23/2022 06 FAX #: [phone] Reason: sob EXAMS: CPT CODE: [id number] XR CHEST 1 V 32746 EXAM: - XR CHEST 1 V COMPARISON: Prior day. LOCATION: C3 HISTORY: sob FINDINGS: Single view of the chest. No indwelling lines/tubes. No pneumothorax. No consolidation or significant effusion. The m ediastinal contours are unchanged. IMPRESSION: No acute pulmonary findings. Electronically Signedby Marifer Verdugo on 11/23/2022 at 0644 Reported and signed by: Herve Verdugo M.D. CC:Rancho Oreilly MD; Neris Estrada MD Technologist: SO [facility] Date/Time/By: 11/23/2022 (0644) : By: [email or web address] PAGE 1 Signed Report FAX: Rancho Bess MD [phone] [place]: [facility]: [facility] FAX: Neris Estrada MD [phone] Name: LIZBET LANDRY [facility] : 1975 Age/S: 47/F [address] Unit #: [id number] Loc: [address] [place], [place]: [place] [address] Acct: [id number] Dis Date: Status: ADM IN PHONE #: [phone] Exam Date: 11/23/2022 0601 FAX #: [phone] Reason: sob EXAMS: CPT CODE: [id number] XR CHEST 1 V [id number] (Continued) Orig Print D/T: S: 11/23/2022 (0647) IRINEO YODER 2 Signed ReportKING[facility] W/AUTO [id number] 20:37:00 Test Item Value Reference Range Interpretation Comments WHITE BLOOD CELL (test code = 6.7 K/mm3 4.5-11.0 N WBC) RED BLOOD CELL (test code = 2.34 M/mm3 3.80-5.20 L RBC) HEMOGLOBIN (test code = HGB) 7.1 gm/dL 12.0-16.0 L HEMATOCRIT (test code = HCT) 20.5 % 36.0-48.0 L MEAN CELL VOLUME (test code = 87.6 UM3 82.0-99.0 N MCV) MEAN CELL HGB (test code = MCH) 30.3 UUG 25.5-32.5 N MEAN CELL HGB CONCETRATION 34.6 gm/dL 29.0-35.5 N (test code = MCHC) RED CELL DISTRIBUTION WIDTH 17.8 % 11.5-15.0 H (test code = RDW) RED CELL DISTRIBUTION WIDTH SD 54.4 fL 34.8-50.2 H (test code = RDW-SD) PLATELET COUNT (test code = 152 K/mm3 150-400 N PLT) MEAN PLATELET VOLUME (test code 11.5 fl 7.4-10.4 H = MPV) NEUTROPHIL % (test code = NT%) 70.6 % 49.0-76.0 N IMMATURE GRANULOCYTE % (test 0.7 % 0.0-0.4 H code = IG%) LYMPHOCYTE % (test code = LY%) 16.7 % 23.0-38.0 L MONOCYTE % (test code = MO%) 8.8 % 1.0-10.0 N EOSINOPHIL % (test code = EO%) 2.5 % 1.0-5.0 N BASOPHIL % (test code = BA%) 0.7 % 0.0-1.0 N NUCLEATED RBC % (test code = 0.3 % 0.0-0.1 H NRBC%) NEUTROPHIL # (test code = NT#) 4.7 K/mm3 2.4-6.3 N IMMATURE GRANULOCYTE # (test 0.05 x10 3/uL 0.00-0.07 N code = IG#) LYMPHOCYTE # (test code = LY#) 1.1 K/mm3 1.2-4.0 L MONOCYTE # (test code = MO#) 0.6 K/mm3 0.0-0.6 N EOSINOPHIL # (test code = EO#) 0.2 K/MM3 0.0-0.7 N BASOPHIL # (test code = BA#) 0.1 K/mm3 0.0-0.2 N NUCLEATED RBC # (test code = 0.02 X10 3uL 0.00-0.01 H NRBC#) [id number] 20:15:00 Test Item Value Reference Range Interpretation Comments GLUBED (test code = GLUBED) 99 mg/dL 70-110 N - US TRANSVAGINAL NON [id number] 14:00:00 [facility] : 1975 Sex: F FAX:Neris Estrada MD [phone] [place]: St: ADM Name: LIZBET LANDRY [facility] : 1975 Age/S: 47/F [address] [facility] [employer] Unit #: [id number] Loc: [address] [place], [place]: [place] [address] Acct: [id number] Dis Date: Status: ADM IN PHONE #: [phone] Exam Date: 11/22/2022 1248 FAX #: [phone] Reason: PELVIC MASS EXAMS: CPT CODE: [id number] [place] [address] HISTORY: Pelvicmass. Comparison to CT abdomen 11/19/2022 Location Code: B2 TECHNIQUE: Multiple transverse and longitudinal sonographic images were obtained. FINDINGS: The uterus measures 9.3 x 4.5 x 5.5 cm. It is homogeneous in echogenicity. An isoechoic structure in the posterior cul-de-sac measures 5.5 x 3.9 x 5.3 cm demonstrating minimal internal vascularity. The endometrial stripe measures 10 mm in thickness. The right ovary measures 2.7 x 1.9 x 2.5 cm. The left ovary measures 2.8 x 1.5 x 1.5 cm. No suspiciousadnexal masses are seen. There is no free fluid in the cul-de-sac. IMPRESSION: 1. Suggestion of possibly a posterior pedunculated fibroid. 2. No suspicious adnexal masses. at 1400 Reported and signed by: Ever Terry M.D. CC: Neris Estrada MD Technologist: [id number]; LIV BLOOM Trnscrd Date/Time/By: 11/22/2022 (1400) : By: [email or web address] PAGE1 Signed Report FAX: Neris Estrada MD [phone] [place]: St: ADM Name: LACEYLIZBET [facility] : 1975Age/S: 47/F [address] [employer] Unit #: [id number] Loc: [address] [place], [place]: [place] [address] Acct: [id number] Dis Date: Status: ADM IN PHONE #: [phone] Exam Date: 2022 1248 FAX #: [phone] Reason: PELVIC MASS EXAMS: CPT CODE: [id number] [place] [address] (Continued) Orig Print D/T: S: 11/22/2022 (1403) PAGE 2 Signed Report- DUP AB/PEL/SC [id number] 14:00:00 [facility] : 1975 Sex: F FAX:Neris Estrada MD [phone] [place]: EM St: ADM [facility] 1975 Age/S: 47/F [address] [facility] Unit #: [id number] Loc: [address] [place], [place]: [place] [address] Acct: [id number] Dis Date: Status: ADM IN PHONE #: [phone] Exam Date: 11/22/2022 1245 FAX #: [phone] Reason: MASS ON CT EXAMS: CPT CODE: [id number] DUP AB/PEL/SC COMP 50211 HISTORY: Pelvic mass. Comparison to CT abdomen 11/19/2022 Location Code: B2 TECHNIQUE: Multiple transverse and longitudinal sonographic images were obtained. FINDINGS: The uterus measures 9.3 x 4.5 x 5.5 cm. It is homogeneous in echogenicity. An isoechoic structure in the posterior cul-de-sac measures 5.5 x 3.9 x 5.3 cm de monstrating minimal internal vascularity. The endometrial stripe measures 10 mm in thickness. The right ovary measures 2.7 x 1.9 x 2.5 cm. The left ovary measures 2.8 x 1.5 x 1.5 cm. No suspicious adnexal masses are seen. There is no free fluid in the cul-de-sac. IMPRESSION: 1. Suggestion of possiblya posterior pedunculated fibroid. 2. No suspicious adnexal masses. at 1400 Reported and signed by: Ever Terry M.D. CC: Neris Estrada MD Technologist: LIV BLOOM Trnscrd Date/Time/By: 11/22/2022 (1400) : By: [email or web address] PAGE 1 Signed Report FAX: Neris Estrada MD [phone] [place]: St: ADM [facility]: [facility] 1975 Age/S: 47[facility]F [address] [facility] #: [id number] Loc: E.427 [place], [place]: [place] [id number] Acct: [id number] Dis Date: Status: ADM IN PHONE #: [phone] Exam Date: 11/22/2022 1248 FAX #: [phone] Reason: MASS ON CT EXAMS: CPT CODE: [id number] DUP AB/PEL/SC COMP 03194 (Continued) Orig Print D/T: S: 11/22/2022 (1403) PAGE 2 Signed Report- US PELVIS [id number] 14:00:00 [facility] : 1975 Sex: F FAX:Neris Estrada MD [phone] [place]: St: [facility] FAX: Shreyas Marti [phone] Name: Jay LANDRYVONNE [facility] : 1975 Age/S: 47/F [address] [employer] Unit #: [id number] Loc: E.427 [place], [place]: [place] [id number] Acct: [id number] Dis Date: Status: ADM IN PHONE #:[phone] Exam Date: 11/22/2022 1248 FAX #: [phone] Reason: pelvic mass EXAMS: CPT CODE: [id number] US PELVIS COMPLETE 69268 HISTORY: Pelvic mass. Comparison to CT abdomen 11/19/2022 Location Code: B2 TECHNIQUE: Multiple transverse and longitudinal sonographic images were obtained. FINDINGS: The uterus measures 9.3 x 4.5 x 5.5 cm. It is homogeneous in echogenicity. An isoechoic structure in the posterior cul-de-sac measures 5.5 x 3.9 x 5.3 cm demonstrating minimal internal vascularity. The endometrial stripe measures 10 mm in thickness. The right ovary measures 2.7 x 1.9 x 2.5 cm. The left ovary measures 2.8 x 1.5 x 1.5 cm. No suspicious adnexal masses are seen. There is no free fluid in the cul-de-sac. IMPRESSION: 1. Suggestion of possibly a posterior pedunculated fibroid. 2. No suspicious adnexal masses. at 1400 Reported and signed by: Ever Terry M.D. CC: Neris Estrada MD; Carmenza Romo MD Technologist: [employer]IV [employer] Trn[employer] Date/Time/By: 11/22/2022 (1400) : By: [email or web address] PAGE 1 Signed Report FAX: Neris Estrada MD [phone] [place]: St: [facility] FAX: Shreyas Marti [phone] Name: LIZBET LANDRY [facility] : 1975 Age/S: 47/F [address] [facility] Unit #: [id number] Loc: E.427 [place], [place]: [place] [address] Acct: [id number] Dis Date: Status: ADM IN PHONE #: [phone] Exam Date: 11/22/2022 1248 FAX #: [phone] Reason: pelvic mass EXAMS: CPT CODE: [id number] US PELVIS COMPLETE 48715 (Continued) Orig Print D/T: S: 11/22/2022 (0803) PAGE 2 Signed [id number] 08:56:00 Test Item Value Reference Range Interpretation Comments GLUBED (test code = GLUBED) 100 mg/dL 70-110 N CBC W/AUTO [id number] 07:31:00 Test Item Value Reference Range Interpretation Comments WHITE BLOOD CELL (test code = 6.7 K/mm3 4.5-11.0 N WBC) RED BLOOD CELL (test code = 1.94 M/mm3 3.80-5.20 L RBC) HEMOGLOBIN (test code = HGB) 6.0 gm/dL 12.0-16.0 LL HEMATOCRIT (test code = HCT) 17.3 % 36.0-48.0 LL MEAN CELL VOLUME (test code = 89.2 UM3 82.0-99.0 MCV) MEAN CELL HGB (test code = MCH) 30.9 UUG 25.5-32.5 N MEAN CELL HGB CONCETRATION 34.7 gm/dL 29.0-35.5 N (test code = MCHC) RED CELL DISTRIBUTION WIDTH 19.9 % 11.5-15.0 H (test code = RDW) RED CELL DISTRIBUTION WIDTH SD 57.0 fL 34.8-50.2 H (test code = RDW-SD) PLATELET COUNT (test code = 165 K/mm3 150-400 N PLT) MEAN PLATELET VOLUME (test code 12.2 fl 7.4-10.4 H = MPV) NEUTROPHIL % (test code = NT%) 74.5 % 49.0-76.0 N IMMATURE GRANULOCYTE % (test 0.5 % 0.0-0.4 H code = IG%) LYMPHOCYTE % (test code = LY%) 16.1 % 23.0-38.0 L MONOCYTE % (test code = MO%) 5.4 % 1.0-10.0 N EOSINOPHIL % (test code = EO%) 2.6 % 1.0-5.0 N BASOPHIL % (test code = BA%) 0.9 % 0.0-1.0 N NUCLEATED RBC % (test code = 0.0 % 0.0-0.1 N NRBC%) NEUTROPHIL # (test code = NT#) 5.0 K/mm3 2.4-6.3 N IMMATURE GRANULOCYTE # (test 0.03 x10 3/uL 0.00-0.07 N code = IG#) LYMPHOCYTE # (test code = LY#) 1.1 K/mm3 1.2-4.0 L MONOCYTE # (test code = MO#) 0.4 K/mm3 0.0-0.6 N EOSINOPHIL # (test code = EO#) 0.2 K/MM3 0.0-0.7 N BASOPHIL # (test code = BA#) 0.1 K/mm3 0.0-0.2 N NUCLEATED RBC # (test code = 0.00 X10 3uL 0.00-0.01 N NRBC#) COMPREHENSIVE METABOLIC [id number] 07:28:00 Test Item Value Reference Range Interpretation Comments SODIUM (test code = 135 mmol/l 134.0-147.0 N NA) POTASSIUM (test code 3.8 mmol/L 3.6-5.2 N = K) CHLORIDE (test code 104 mmol/l 98.0-107.0 N = CL) CARBON DIOXIDE (test 20.5 mmol/l 21.0-33.0 L code = CO2) ANION GAP (test code 14.3 0-20 N = GAP) GLUCOSE (test code = 95 mg/dl 70.0-110.0 N GLU) BLOOD UREA NITROGEN 22 mg/dl 7.0-18.0 H (test code = BUN) GLOMERULAR 68 mL/min The Glomerular FILTRATION RATE Filtration R ate is a (test code = GFR) calculated parameterbased on serum Creatinin e, patient age and sex. GFR valuesless than 60 mL/min/1.73 squ are meters are yolanda cative ofChronic Kidne y Disease. Values less than 15 mL/min/1.73squa re meters indicate Kidney failure. The calculation for GFR is based on the CK D-EPI (2020) calculat ion. This formulais race indifferent and is the recommended for sudhir for GFRby the [facility] Kidney Foundati on for Adults.The GFR will not calculate i f the sex is unknown or if thepatient's ag e is <18 years. CREATININE (test 1.01 mg/dL 0.60-1.30 N code = CREAT) ESTIMATED CREAT 53 mL/min >30 CLEARANCE (test code = ECRCL) TOTAL PROTEIN (test 6.4 GM/DL 6.0-8.1 N code = PROT) ALBUMIN (test code = 3.5 gm/dL 3.2-4.7 N ALB) CALCIUM (test code = 8.1 mg/dl 8.0-10.5 N CA) BILIRUBIN TOTAL 3.7 mg/dl 0.0-1.0 H (test code = BILT) SGOT/AST (test code 171 Units/L 15-37 H = AST) SGPT/ALT (test code 128 Units/L 12.0-78.0 H = ALT) ALKALINE PHOSPHATASE 155 Units/L 50.0-136.0 H TOTAL (test code = ALKP) - XR CHEST 1 [id number] 06:51:00 [facility] : 1975 Sex: F FAX:Rancho Bess MD [phone] [place]: St: [facility] FAX: Neris Estrada MD [phone] Name: [facility] 1975 Age/S: 47/F [address] [facility] Unit #: [id number] Loc: E.427 [place], [place]: [place] [address] Acct: [id number] Dis Date: Status: ADM IN PHONE #: [phone] Exam Date: 11/22/2022 0502 FAX #: [phone] Reason: sob EXAMS: CPT CODE: [id number] XR CHEST 1 V 32029 EXAM: - XR CHEST 1 V COMPARISON: 11/19/2022 LOCATION: [facility] HISTORY: sob FINDINGS: Single view of the chest. Unchanged indwelling lines/tubes. No pneumothorax. No consolidation or significant effusion. The mediastinal contours are unchanged. IMPRESSION: No acute pulmonary findings. at 0651 Reported and signed by: Herve Verdugo M.D. CC: Rancho Oreilly MD; Neris Estrada MD Technologist: GINGER LI [facility] Date/Time/By: 11/22/2022 (0651) : By: [email or web address] PAGE 1 Signed Report FAX: Rancho Bess MD [phone] [place]: St: [facility] FAX: Neris Estrada MD [phone] [facility] 1975 Age/S: 47/F [address] [employer] Unit #: [id number] Loc: E.427 [place], [place]: [place] [address] Acct: [id number] Dis Date: Status: ADM IN PHONE #: [phone] Exam Date: 11/22/2022 0502 FAX #: [phone] Reason: sob EXAMS: CPT CODE: [id number] XR CHEST 1 V 07481 (Continued) Orig Print D/T: S: 11/22/2022 (0654) PAGE 2 Signed [id number] 21:06:00 Test Item Value Reference Range Interpretation Comments GLUBED (test code = GLUBED) 102 mg/dL 70-110 N [id number] 20:10:00 Test Item Value Reference Range Interpretation Comments GLUBED (test code = GLUBED) 104 mg/dL 70-110 N CBC W/MANUAL [id number] 14:02:00 Test Item Value Reference Range Interpretation Comments WHITE BLOOD CELL (test code = 13.9 K/mm3 4.5-11.0 H WBC) RED BLOOD CELL (test code = 2.03 M/mm3 3.80-5.20 L RBC) HEMOGLOBIN (test code = HGB) 6.1 gm/dL 12.0-16.0 LL HEMATOCRIT (test code = HCT) 16.8 % 36.0-48.0 LL MEAN CELL VOLUME (test code = 82.8 UM3 82.0-99.0 MCV) MEAN CELL HGB (test code = MCH) 30.0 UUG 25.5-32.5 N MEAN CELL HGB CONCETRATION 36.3 gm/dL 29.0-35.5 H (test code = MCHC) RED CELL DISTRIBUTION WIDTH 17.1 % 11.5-15.0 H (test code = RDW) RED CELL DISTRIBUTION WIDTH SD 49.5 fL 34.8-50.2 N (test code = RDW-SD) PLATELET COUNT (test code = 209 K/mm3 150-400 N PLT) MEAN PLATELET VOLUME (test code 12.0 fl 7.4-10.4 H = MPV) NEUTROPHIL % (test code = NT%) 79.8 % 49.0-76.0 H IMMATURE GRANULOCYTE % (test 0.5 % 0.0-0.4 H code = IG%) LYMPHOCYTE % (test code = LY%) 12.9 % 23.0-38.0 L MONOCYTE % (test code = MO%) 4.4 % 1.0-10.0 N EOSINOPHIL % (test code = EO%) 1.9 % 1.0-5.0 N BASOPHIL % (test code = BA%) 0.5 % 0.0-1.0 N NUCLEATED RBC % (test code = 0.2 % 0.0-0.1 H NRBC%) NEUTROPHIL # (test code = NT#) 11.1 K/mm3 2.4-6.3 H IMMATURE GRANULOCYTE # (test 0.07 x10 3/uL 0.00-0.07 N code = IG#) LYMPHOCYTE # (test code = LY#) 1.8 K/mm3 1.2-4.0 N MONOCYTE # (test code = MO#) 0.6 K/mm3 0.0-0.6 N EOSINOPHIL # (test code = EO#) 0.3 K/MM3 0.0-0.7 N BASOPHIL # (test code = BA#) 0.1 K/mm3 0.0-0.2 N NUCLEATED RBC # (test code = 0.03 X10 3uL 0.00-0.01 H NRBC#) SEGMENTED NEUTROPHILS (test 88 % 50.0-70.0 H code = SEG) LYMPHOCYTE (test code = LYMPH) 8 % 20-40 L TOTAL CELLS COUNTED (test code 100 #CELLS = TCC) BAND NEUTROPHIL (test code = 2 % 1.0-4.0 N BAND) MONOCYTE (test code = MON) 1 % 0-10 N EOSINOPHIL (test code = EOS) 1 % 1.0-5.0 N POIKILOCYTOSIS (test code = 2+ POIK) ANISOCYTOSIS (test code = 1+ ANISO) MICROCYTOSIS (test code = MICR) 1+ SCHISTOCYTES (test code = MELINDA) 1+ PLATELET ESTIMATE (test code = ADQ PLTEST) PLATELET MORPHOLOGY (test code NORMAL = PLTMORPH) ARTERIAL BLOOD [id number] 10:49:00 Test Item Value Reference Range Interpretation Comments ARTERIAL BLOOD GAS PH 7.436 7.350-7.450 N (test code = PHA) ARTERIAL BLOOD GAS PCO2 27.9 mmHg 35.0-45.0 L (test code = PCO2A) ARTERIAL BLOOD GAS PO2 92.7 mmHg See_Comment [Aut omated (test code = PO2A) message] The system which generated this result transmit tomy reference range : 80.0. The reference range was not used to interpret this result as normal/abnormal . BICARBONATE TOTAL HCO3 18.4 MMOL/L 22.0-26.0 L (test code = HCO3) BASE EXCESS (test code = -5.4 MMOL/L -4.0-4.0 L NEDRA) ABG O2 SATURATION (test 96.8 % 92.0-99.0 N code = SATA) FIO2 (test code = FIO2A) 21.0 % ABG SITE (test code = LR SITEA) ALLENS TEST (test code = Yes ALLENS) TOTAL HGB (test code = 5.4 g/dL 12.0-16.0 LL THB) CARBOXYHEMOGLOBIN (test 6.4 % THgb 0.0-1.5 H code = HOHGBT) METHEMOGLOBIN (test code 2.2 % 0.0-1.5 H NOR MAL = METHGB) <2.0POTENTIALLY TOXIC >20.0 RETICULOCYTE [id number] 08:56:00 Test Item Value Reference Range Interpretation Comments RETIC COUNT (AUTOMATED) (test 4.50 % 0.58-2.72 H code = RETICA) RETIC COUNT ABSOLUTE (test 0.0896 X10 6 uL 0.0237-0.1295 N code = RET#) IMMATURE RETICULOCYTE 34.0 % 0.0-29.5 H FRACTION (test code = IRF) RETICULOCYTE HGB EQUIVALENT 32.5 pg 27.4-42.0 N (test code = RETHE) [id number] 08:38:00 Test Item Value Reference Range Interpretation Comments GLUBED (test code = GLUBED) 110 mg/dL 70-110 N BILIRUBIN [id number] 08:35:00 Test Item Value Reference Range Interpretation Comments BILIRUBIN TOTAL (test code = BILT) 5.7 mg/dl 0.0-1.0 H LACTIC DEHYDROGENASE(LDH)[id number] 08:35:00 Test Item Value Reference Range Interpretation Comments LACTIC DEHYDROGENASE(LDH) (test 1847 Units/L 81-234 HH code = LDH) BASIC METABOLIC [id number] 08:34:00 Test Item Value Reference Range Interpretation Comments SODIUM (test code = 139 mmol/l 134.0-147.0 N NA) POTASSIUM (test 4.0 mmol/L 3.6-5.2 N code = K) CHLORIDE (test code 106 mmol/l 98.0-107.0 N = CL) CARBON DIOXIDE 23.5 mmol/l 21.0-33.0 N (test code = CO2) ANION GAP (test 13.5 0-20 N code = GAP) GLUCOSE (test code 103 mg/dl 70.0-110.0 N = GLU) BLOOD UREA NITROGEN 30 mg/dl 7.0-18.0 H (test code = BUN) GLOMERULAR 63 mL/min The Glomerular FILTRATION RATE Filtration R ate is a (test code = GFR) calculated parameterbased on serum Creatinine, pat ient age and sex. GFR va luesless than 60 mL/min/ 1.73 square meters a re indicative ofCh ronic Kidney Disease. Values less than 15 mL/min/1.73squa re meters indicate Kidney failure. The calculation for GFR is based on the CK D-EPI (2020) calculat ion. This formulais race indifferent and is the recommended for sudhir for GFRby the [facility] Kid[facility] on for Ad[facility].The GFR will not calculate if th e sex is unknown or if thepatient's ag e is <18 years. CREATININE (test 1.08 mg/dL 0.60-1.30 N code = CREAT) ESTIMATED CREAT 50 mL/min >30 CLEARANCE (test code = ECRCL) CALCIUM (test code 8.7 mg/dl 8.0-10.5 N = CA) [id number] 21:52:00 Test Item Value Reference Range Interpretation Comments HGBA1C% (test code = <3.8 %A1C 4.8-6.0 L TEST PE RFORMED AT HGBA1C%) [facility]. ESTIMATED AVERAGE 62 MG/DL GLUCOSE (test code = EAG) UNABLE TO GET THE RESULT---[facility]--NOTIFIED WESLEY RICHARDSON AT 1924.[id number] 21:04:00 Test Item Value Reference Range Interpretation Comments GLUBED (test code = GLUBED) 95 mg/dL 70-110 N [id number] 16:45:00 Test Item Value Reference Range Interpretation Comments GLUBED (test code = GLUBED) 89 mg/dL 70-110 N LACTIC [id number] 15:59:00 Test Item Value Reference Range Interpretation Comments LACTIC ACID (test code = LACT) 1.8 mmol/L 0.4-2.0 N RETICULOCYTE [id number] 15:45:00 Test Item Value Reference Range Interpretation Comments RETIC COUNT (AUTOMATED) (test 3.34 % 0.58-2.72 H code = RETICA) RETIC COUNT ABSOLUTE (test 0.0568 X10 6 uL 0.0237-0.1295 N code = RET#) IMMATURE RETICULOCYTE 24.4 % 0.0-29.5 N FRACTION (test code = IRF) RETICULOCYTE HGB EQUIVALENT 30.5 pg 27.4-42.0 N (test code = RETHE) CBC W/MANUAL [id number] 14:18:00 Test Item Value Reference Range Interpretation Comments WHITE BLOOD CELL 26.0 K/mm3 4.5-11.0 HH (test code = WBC) RED BLOOD CELL (test 1.33 M/mm3 3.80-5.20 L code = RBC) HEMOGLOBIN (test code 6.7 gm/dL 12.0-16.0 LL = HGB) HEMATOCRIT (test code 15.2 % 36.0-48.0 LL 3+ ICTERIC = HCT) SAMPLE AND HAS COLD AGGLUTININ MEAN CELL VOLUME 114.3 UM3 82.0-99.0 H (test code = MCV) MEAN CELL HGB (test 50.4 UUG 25.5-32.5 H code = MCH) MEAN CELL HGB 44.1 gm/dL 29.0-35.5 H SAMPLE IS 3+ CONCETRATION (test ICTERIC A ND HAS code = MCHC) COLD AGGLUTININ RED CELL DISTRIBUTION TEST NOT 11.5-15.0 WIDTH (test code = PERFORMED % RDW) RED CELL DISTRIBUTION TEST NOT 34.8-50.2 WIDTH SD (test code = PERFORMED fL RDW-SD) PLATELET COUNT (test 215 K/mm3 150-400 N code = PLT) MEAN PLATELET VOLUME 11.9 fl 7.4-10.4 H (test code = MPV) NEUTROPHIL % (test 90.7 % 49.0-76.0 H code = NT%) IMMATURE GRANULOCYTE 1.4 % 0.0-0.4 H % (test code = IG%) LYMPHOCYTE % (test 4.8 % 23.0-38.0 L code = LY%) MONOCYTE % (test code 2.9 % 1.0-10.0 N = MO%) EOSINOPHIL % (test 0.0 % 1.0-5.0 L code = EO%) BASOPHIL % (test code 0.2 % 0.0-1.0 N = BA%) NUCLEATED RBC % (test 0.3 % 0.0-0.1 H code = NRBC%) NEUTROPHIL # (test 23.6 K/mm3 2.4-6.3 H code = NT#) IMMATURE GRANULOCYTE 0.37 x10 3/uL 0.00-0.07 H # (test code = IG#) LYMPHOCYTE # (test 1.2 K/mm3 1.2-4.0 N code = LY#) MONOCYTE # (test code 0.8 K/mm3 0.0-0.6 H = MO#) EOSINOPHIL # (test 0.0 K/MM3 0.0-0.7 N code = EO#) BASOPHIL # (test code 0.1 K/mm3 0.0-0.2 N = BA#) NUCLEATED RBC # (test 0.09 X10 3uL 0.00-0.01 H code = NRBC#) SEGMENTED NEUTROPHILS 82 % 50.0-70.0 H (test code = SEG) LYMPHOCYTE (test code 4 % 20-40 L = LYMPH) TOTAL CELLS COUNTED 100 #CELLS (test code = TCC) BAND NEUTROPHIL (test 10 % 1.0-4.0 H code = BAND) MONOCYTE (test code = 4 % 0-10 N MON) NUCLEATED RED BLOOD 1 % CELL (test code = NRBC) POLYCHROMASIA (test 3+ code = POLC) POIKILOCYTOSIS (test 1+ code = POIK) ANISOCYTOSIS (test 3+ code = ANISO) PLATELET ESTIMATE ADQ (test code = PLTEST) PLATELET MORPHOLOGY NORMAL (test code = PLTMORPH) CBC W/AUTO [id number] 14:08:00 Test Item Value Reference Range Interpretation Comments WHITE BLOOD CELL (test 23.7 K/mm3 4.5-11.0 H code = WBC) RED BLOOD CELL (test 1.64 M/mm3 3.80-5.20 L code = RBC) HEMOGLOBIN (test code = 7.3 gm/dL 12.0-16.0 L HGB) HEMATOCRIT (test code = 17.3 % 36.0-48.0 LL HCT) MEAN CELL VOLUME (test 105.5 UM3 82.0-99.0 H code = MCV) MEAN CELL HGB (test code 44.5 UUG 25.5-32.5 H = MCH) MEAN CELL HGB 42.2 gm/dL 29.0-35.5 H CONCETRATION (test code = MCHC) RED CELL DISTRIBUTION TEST NOT PERFORMED % 11.5-15.0 WIDTH (test code = RDW) RED CELL DISTRIBUTION TEST NOT PERFORMED fL 34.8-50.2 WIDTH SD (test code = RDW-SD) PLATELET COUNT (test 224 K/mm3 150-400 N code = PLT) MEAN PLATELET VOLUME 11.6 fl 7.4-10.4 H (test code = MPV) NEUTROPHIL % (test code 89.2 % 49.0-76.0 H = NT%) IMMATURE GRANULOCYTE % 1.6 % 0.0-0.4 H (test code = IG%) LYMPHOCYTE % (test code 5.6 % 23.0-38.0 L = LY%) MONOCYTE % (test code = 3.1 % 1.0-10.0 N MO%) EOSINOPHIL % (test code 0.2 % 1.0-5.0 L = EO%) BASOPHIL % (test code = 0.3 % 0.0-1.0 N BA%) NUCLEATED RBC % (test 0.3 % 0.0-0.1 H code = NRBC%) NEUTROPHIL # (test code 21.2 K/mm3 2.4-6.3 H = NT#) IMMATURE GRANULOCYTE # 0.38 x10 3/uL 0.00-0.07 H (test code = IG#) LYMPHOCYTE # (test code 1.3 K/mm3 1.2-4.0 N = LY#) MONOCYTE # (test code = 0.7 K/mm3 0.0-0.6 H MO#) EOSINOPHIL # (test code 0.0 K/MM3 0.0-0.7 N = EO#) BASOPHIL # (test code = 0.1 K/mm3 0.0-0.2 N BA#) NUCLEATED RBC # (test 0.08 X10 3uL 0.00-0.01 H code = NRBC#) CBC W/AUTO [id number] 12:22:00 Test Item Value Reference Range Interpretation Comments WHITE BLOOD CELL 26.0 K/mm3 4.5-11.0 HH (test code = WBC) RED BLOOD CELL (test 1.33 M/mm3 3.80-5.20 L code = RBC) HEMOGLOBIN (test 6.7 gm/dL 12.0-16.0 LL code = HGB) HEMATOCRIT (test 15.2 % 36.0-48.0 LL 3+ ICTER IC code = HCT) SAMPLE AND HAS COLD AGGLUTININ MEAN CELL VOLUME 114.3 UM3 82.0-99.0 H (test code = MCV) MEAN CELL HGB (test 50.4 UUG 25.5-32.5 H code = MCH) MEAN CELL HGB 44.1 gm/dL 29.0-35.5 H SAMPLE IS 3+ CONCETRATION (test ICTERIC A ND HAS code = MCHC) COLD AGGLUTININ RED CELL TEST NOT 11.5-15.0 DISTRIBUTION WIDTH PERFORMED % (test code = RDW) RED CELL TEST NOT 34.8-50.2 DISTRIBUTION WIDTH PERFORMED fL SD (test code = RDW-SD) PLATELET COUNT (test 215 K/mm3 150-400 N code = PLT) MEAN PLATELET VOLUME 11.9 fl 7.4-10.4 H (test code = MPV) NEUTROPHIL % (test 90.7 % 49.0-76.0 H code = NT%) IMMATURE GRANULOCYTE 1.4 % 0.0-0.4 H % (test code = IG%) LYMPHOCYTE % (test 4.8 % 23.0-38.0 L code = LY%) MONOCYTE % (test 2.9 % 1.0-10.0 N code = MO%) EOSINOPHIL % (test 0.0 % 1.0-5.0 L code = EO%) BASOPHIL % (test 0.2 % 0.0-1.0 N code = BA%) NUCLEATED RBC % 0.3 % 0.0-0.1 H (test code = NRBC%) NEUTROPHIL # (test 23.6 K/mm3 2.4-6.3 H code = NT#) IMMATURE GRANULOCYTE 0.37 x10 3/uL 0.00-0.07 H # (test code = IG#) LYMPHOCYTE # (test 1.2 K/mm3 1.2-4.0 N code = LY#) MONOCYTE # (test 0.8 K/mm3 0.0-0.6 H code = MO#) EOSINOPHIL # (test 0.0 K/MM3 0.0-0.7 N code = EO#) BASOPHIL # (test 0.1 K/mm3 0.0-0.2 N code = BA#) NUCLEATED RBC # 0.09 X10 3uL 0.00-0.01 H (test code = NRBC#) BASIC METABOLIC [id number] 12:12:00 Test Item Value Reference Range Interpretation Comments SODIUM (test code = 138 mmol/l 134.0-147.0 N NA) POTASSIUM (test 4.8 mmol/L 3.6-5.2 N code = K) CHLORIDE (test code 105 mmol/l 98.0-107.0 N = CL) CARBON DIOXIDE 22.2 mmol/l 21.0-33.0 N (test code = CO2) ANION GAP (test 15.6 0-20 N code = GAP) GLUCOSE (test code 93 mg/dl 70.0-110.0 N = GLU) BLOOD UREA NITROGEN 27 mg/dl 7.0-18.0 H (test code = BUN) GLOMERULAR 47 mL/min The Glomerular FILTRATION RATE Filtration R ate is a (test code = GFR) calculated parameterbased on serum Creatinine, pat ient age and sex. GFR va luesless than 60 mL/min/ 1.73 square meters a re indicative ofCh ronic Kidney Disease. Values less than 15 mL/min/1.73squa re meters indicate Kidney failure. The calculation for GFR is based on the CK D-EPI (2020) calculat ion. This formulais race indifferent and is the recommended for sudhir for GFRby the [facility] Kid[facility] Found[facility] on for Adults.The GFR will not calculate if th e sex is unknown or if thepatient's ag e is <18 years. CREATININE (test 1.37 mg/dL 0.60-1.30 H code = CREAT) ESTIMATED CREAT 39 mL/min >30 CLEARANCE (test code = ECRCL) CALCIUM (test code 8.6 mg/dl 8.0-10.5 N = CA) COVID 19 INHOUSE [id number] 09:35:00 Test Item Value Reference Range Interpretation Comments COVID 19 INHOUSE NEGATIVE NEGATIVE Negative re sults should be AG (test code = treated as p resumptive and [id number]) ifinconsistent with clinical signs and sympt oms, or necessaryfor pa tient management, kai uld be tested with an alterna tivemolecular assay. Negative results do not preclude [id number] tion and should not be u sed as the sole basis forp atient management deci sions. Negative result s should beconsidered in the context of a patient's recent exposures,histo ry, presence of clinical sig ns and symptoms consis tentwith COVID-19. - XR CHEST 1 [id number] 20:07:00 [facility] : 1975 Sex: F FAX:Dawson Herrera DO [phone] [place]: EM St: ADM FAX: James Bundy Name: LACEY,LIZBET [facility] : 1975 Age/S: 47/F [address] [facility] Unit #: [id number] Loc: [facility] [place], [place] Phys: James BundyP [address] Acct: [id number] Dis Date: Status: ADM IN PHONE #: [phone] Exam Date: 11/19/20221958 FAX #: [phone] Reason: OPACITIES EXAMS: CPT CODE: [id number] XR CHEST 1 V 51083 EXAM: - XR CHEST 1 V HISTORY: Chest pain. COMPARISON: None available time of interpretation. FINDINGS: Single AP view of the chest is provided. Heart size and vascularity are within normal limits. Hypoinflation of the lungs. Elevated right hemidiaphragm. There is no evidence of a focal consolidation. There is no pleural effusion or pneumothorax. There is no definite acute osseous abnormality. IMPRESSION: No radiographic evidence of acute cardiopulmonary process. Hypoinflation of the lungs. Dacia ctronically Signed by Marifer Hearn on 11/19/2022 at 2007 Reported and signed by: Zane Hearn M.D. CC: Dawson Herrera DO; James Bundy Technologist: GINGER Barnettrd Date/Time/By: 11/19/2022 (2006) : By: [email or web address] PAGE 1 Signed Report FAX: Dawson Herrera DO [phone] [place]: St: [facility] FAX: James Bundy Name: LIZBET LANDRY [facility] : 1975 Age/S: 47/F [address] [facility] Unit #: [id number] Loc: [facility] [place], [place] Phys: James Bundy [id number]: [id number] Dis Date: Status: ADM IN PHONE #: [phone] Exam Date: 11/19/20221958 FAX #:[phone] Reason: OPACITIES EXAMS: CPT CODE: [id number] XR CHEST 1 V 60784 () Orig PrintD/T: S: 11/19/2022 (2009) PAGE 2 Signed Report- CT ABD PELVIS W/[id number] 18:37:00 [facility] : 1975 Sex: F FAX:James Bundy [place]: St: REG Name: LIZBET LANDRY [facility] : 1975 Age/S: 47/F [address] [facility] Unit: [id number] Loc: [facility] [place], [place] Phys: James Bundy [id number] Acct: [id number] Dis Date: Status: REG ER PHONE #: [phone] Exam Date: 11/19/2022 1803 FAX #: [phone]: RLQ PAIN EXAMS: CPT CODE: [id number] CT ABD PELVIS W/CONT 51822 EXAMINATION: - CT ABD PELVISW/CONT CLINICAL INDICATION: Female, 47 years old with RLQ PAIN TECHNIQUE: Thin section axial post-contrast contiguous images were obtained through the abdomen and pelvis followed by coronal and sagittal multiplanar reformations. One or more of the following dose reduction techniques were used: Automated exposure control, adjustment of the mA and/or kV according to patient size, and/or iterative reconstruction. Unless otherwise specified, incidental findings do not require dedicated imaging follow-up. COMPARISON: None Location: T 18 FINDINGS: Lower Chest: Mild patchy opacities in the lung bases and likely dependent atelectasis. Liver: Prominent hepatomegaly measuring 25 cm craniocaudal dimension. No focal lesions Bile ducts are physiologically dilated following cholecystectomy. Gallbladder: Surgically absent. Pancreas: Normal appearance without focal lesion. Spleen: Prominent splenomegaly measuring 20.5 cm in length. Adrenals: Normal configuration. Kidneys and ureters: Normal size and contour. No hydronephrosis. Bladder/Reproductive Organs: Normal in appearance. 3.7 cm rounded masslike area at the left posterior pelvic cul-de-sac could be a exophytic fibroid at the posterior lower uterine segment. Very anteverted uterus with nabothian cyst could simulate this appearance. Adnexal lesion is not excluded. PAGE 1 Signed Report (CONTINUED) FAX: James Bundy [place]: St: REG Name: LIZBET LANDRY [facility] : 1975 Age/S: 47/F [address] [facility] Unit: [id number] Loc: [address] Phys: James Bundy APRBANNER [address] Acct: [id number] Dis Date: Status: REG ER PHONE #: [phone] Exam Date: 11/19/2022 1803 FAX #: [phone] Reason: RLQ PAIN EXAMS: CPT CODE: [id number] CT ABDPELVIS W/CONT 67829 (Continued) Bowel: Loops of bowel without wall thickening or obstruction. Moderate fecal material in the cecum, ascending and transverse colon. No small bowel obstruction. Ovoid hyperdensity within the distal small bowel is likely a pill. Normal appendix. No free air, free fluid, or fluid collection. Lymph nodes: There are no pathologically enlarged abdominopelvic lymph nodes. Retroperitoneum: No mass or hemorrhage. Abdominal aorta and inferior vena cava are normal in course andcaliber. Abdominal wall: Tiny fat-containing umbilical hernia. Bones: Degenerative change involving the spine, sacroiliac joints and hips is present. IMPRESSION: No acute abdominopelvic abnormality. NoCT evidence of acute appendicitis. Hepatosplenomegaly with massive splenomegaly. Moderate fecal material in the cecum, ascending and transverse colon may be related to constipation. No bowel obstruction identified. Mass like density in the left posterior pelvic cul-de-sac may be an exophytic fibroid or related to uterine positioning. Follow-up pelvic ultrasound recommended to exclude adnexal lesion. at 1837 Reported and signed by: Vik Fuentes MD CC: James ALDRICH Litz Technologist: Antonette Desai Trnscrd Dt/Tm: 11/19/2022 (1836) [id number] Orig Print D/T: S: 11/19/2022 (1840 PAGE 2 Signed [id number] 17:13:00 Test Item Value Reference Range Interpretation Comments LIPASE (test code = LIP) 129 Units/L 65.0-230.0 N TROP-I HIGH [id number] 17:13:00 Test Item Value Reference Range Interpretation Comments TROP-I HIGH 9.2 pg/mL 0.0-51.4 N CAUTION: Units of the SENSITIVITY (test current TR OPI-HS test code = TROPIHS) methodology( pg/mL) differ from the prior test methodolog y (ng/mL) by afac tor of 1000. -------- -------- ---99th Percentile: Fem ales: 0.0-51.4 pg/mL Males: 0.0-76.2 pg/dispatcher maintenance hese results were ob tained using Dimension EXL TnIHreagent. Re sults from different methodologies s hould not becompared to one another as rica titative results may norma y bymethod. BASIC METABOLIC [id number] 17:13:00 Test Item Value Reference Range Interpretation Comments SODIUM (test code = 137 mmol/l 134.0-147.0 N NA) POTASSIUM (test 3.5 mmol/L 3.6-5.2 L code = K) CHLORIDE (test code 102 mmol/l 98.0-107.0 N = CL) CARBON DIOXIDE 24.7 mmol/l 21.0-33.0 N (test code = CO2) ANION GAP (test 13.8 0-20 N code = GAP) GLUCOSE (test code 99 mg/dl 70.0-110.0 N = GLU) BLOOD UREA NITROGEN 11 mg/dl 7.0-18.0 N (test code = BUN) GLOMERULAR 66 mL/min The Glomerular FILTRATION RATE Filtration R ate is a (test code = GFR) calculated parameterbased on serum Creatinine, pat ient age and sex. GFR va luesless than 60 mL/min/ 1.73 square meters a re indicative ofCh ronic Kidney Disease. Values less than 15 mL/min/1.73squa re meters indicate Kidney failure. The calculation for GFR is based on the CK D-EPI (2020) calculat ion. This formulais race indifferent and is the recommended for sudhir for GFRby the Natio nal Kidney Foundati on for Adults.The GFR will not calculate if th e sex is unknown or if thepatient's ag e is <18 years. CREATININE (test 1.04 mg/dL 0.60-1.30 N code = CREAT) CALCIUM (test code 8.9 mg/dl 8.0-10.5 N = CA) ESTIMATED CREAT 52 mL/min >30 CLEARANCE (test code = ECRCL) HEPATIC FUNCTION PANEL [id number] 17:13:00 Test Item Value Reference Range Interpretation Comments TOTAL PROTEIN (test code = PROT) 6.9 gm/dL 6.4-8.2 N ALBUMIN (test code = ALB) 4.0 gm/dl 3.2-4.7 N BILIRUBIN TOTAL (test code = 0.4 mg/dl 0.0-1.0 N BILT) BILIRUBIN DIRECT (test code = 0.1 mg/dl 0.0-0.3 N BILD) SGOT/AST (test code = AST) 33 Units/L 15-37 N SGPT/ALT (test code = ALT) 35 Units/L 12.0-78.0 N ALKALINE PHOSPHATASE TOTAL (test 130 Units/L 50.0-136.0 N code = ALKP) CBC W/AUTO [id number] 16:54:00 Test Item Value Reference Range Interpretation Comments WHITE BLOOD CELL (test code = 3.7 K/mm3 4.5-11.0 L WBC) RED BLOOD CELL (test code = 3.56 M/mm3 3.80-5.20 L RBC) HEMOGLOBIN (test code = HGB) 11.0 gm/dL 12.0-16.0 L HEMATOCRIT (test code = HCT) 34.7 % 36.0-48.0 L MEAN CELL VOLUME (test code = 97.5 UM3 82.0-99.0 N MCV) MEAN CELL HGB (test code = MCH) 30.9 UUG 25.5-32.5 N MEAN CELL HGB CONCETRATION 31.7 gm/dL 29.0-35.5 N (test code = MCHC) RED CELL DISTRIBUTION WIDTH 13.9 % 11.5-15.0 N (test code = RDW) RED CELL DISTRIBUTION WIDTH SD 49.6 fL 34.8-50.2 N (test code = RDW-SD) PLATELET COUNT (test code = 250 K/mm3 150-400 N PLT) MEAN PLATELET VOLUME (test code 11.4 fl 7.4-10.4 H = MPV) NEUTROPHIL % (test code = NT%) 63.7 % 49.0-76.0 N IMMATURE GRANULOCYTE % (test 0.3 % 0.0-0.4 N code = IG%) LYMPHOCYTE % (test code = LY%) 24.2 % 23.0-38.0 N MONOCYTE % (test code = MO%) 8.6 % 1.0-10.0 N EOSINOPHIL % (test code = EO%) 2.4 % 1.0-5.0 N BASOPHIL % (test code = BA%) 0.8 % 0.0-1.0 N NUCLEATED RBC % (test code = 0.0 % 0.0-0.1 N NRBC%) NEUTROPHIL # (test code = NT#) 2.4 K/mm3 2.4-6.3 N IMMATURE GRANULOCYTE # (test 0.01 x10 3/uL 0.00-0.07 N code = IG#) LYMPHOCYTE # (test code = LY#) 0.9 K/mm3 1.2-4.0 L MONOCYTE # (test code = MO#) 0.3 K/mm3 0.0-0.6 N EOSINOPHIL # (test code = EO#) 0.1 K/MM3 0.0-0.7 N BASOPHIL # (test code = BA#) 0.0 K/mm3 0.0-0.2 N NUCLEATED RBC # (test code = 0.00 X10 3uL 0.00-0.01 N NRBC#) PROTHROMBIN [id number] 16:53:00 Test Item Value Reference Range Interpretation Comments PROTHROMBIN TIME 10.6 SECONDS 9.9-12.8 N PATIENT (test code = PTP) INTERNATIONAL NORMAL 0.9 0.89-1.14 N THE INR IS TO BE USED RATIO (test code = ONLY FOR MONITORING INR) ORAL ANTICOAGULANTTH ERAPY. THE FOLLOWING A RE SUGGESTED RANGE S FROM [facility] LEGE OF CHEST PHYSICIANS:YOLANDA CATION INR VALUEPROPHY LAXIS OF VENOUS THROM BOSIS (ORTHOPEDIC MARCUS NOLAN) 2.0 - 3.0PROPHY LAXIS OF VENOUS THROM BOSIS (OTHER THAN HIG H-RISK SURGERY) 2.0 - 3.0TREATMENT OF DEEP VEIN THROMBOSIS OR PULMONARY EMBOL ISM 2.0 - 3.0PREVENTION OF SYSTEMIC EMBOLI SM TISSUE HEART VA LVES 2.0 - 3.0 ACUTE MYOCARDIAL INFA RCTION (TO PREVENT SYS TEMIC EMBOLISM) 2.0 - 3.0 ACUTE MYOCARDIA L INFARCTION (TO PREVENT RECURRENT INFAR CT) 2.5 - 3.0 VALVULAR HEART DISEASE 2.0 - 3 .0 ATRIAL FIBRILAT ION 2.0 - 3.0BILEAFLET MECHANICAL VALV E IN AORTIC POSITION 2.0 - 3.0MECHANICAL PROSTHETIC VALV ES (HIGH RISK) 2.5 - 3.5PRESENCE OF LUPUS ANTICOAGULANT O R ANTIPHOSPHOLIPI D ANTIBODIES 2.5 - 3.5 THROMBOPLASTIN TIME [id number] 16:53:00 Test Item Value Reference Range Interpretation Comments THROMBOPLASTIN TIME 30.90 SECONDS 25.86-36.07 N [place] d Lab PARTIAL (test code = Therape utic Range - PTT) APTT of 55.8-85 .4 secondscorrelat es with plasma heparin concentration o f 0.2-0.4 u/mL URINALYSIS [id number] 15:53:00 Test Item Value Reference Range Interpretation Comments UA COLOR (test code = YELLOW COLU) UA APPEARANCE (test code HAZY = APPU) UA GLUCOSE DIPSTICK (test NORMAL mg/dl NORMAL code = DGLUU) UA BILIRUBIN DIPSTICK NEGATIVE mg/dL NEGATIVE (test code = BILU) UA KETONE DIPSTICK (test NEGATIVE mg/dl NEGATIVE code = KETU) UA SPECIFIC GRAVITY (test 1.020 1.000-1.030 code = SGU) UA BLOOD DIPSTICK (test NEGATIVE Nolan/micL NEGATIVE code = JOSE CARLOS) UA PH DIPSTICK (test code 5.0 5.0-9.0 = DIMITRI) UA PROTEIN DIPSTICK (test 15 mg/dl mg/dl NEGATIVE A code = PROU) UA UROBILINIOGEN DIPSTICK NORMAL mg/dl NORMAL (test code = URO) UA NITRITE DIPSTICK (test POSITIVE NEGATIVE A code = MACIEJ) UA LEUKOCYTE ESTERASE 25 Crista/micL Crista/micL NEGATIVE A DIPSTICK (test code = LEUU) UA RBC (test code = RBCU) 3-5 RBC/HPF 0-3 UA BACTERIA (test code = MANY NONE A BACU) UA WBC NO REFLEX (test 4-9 WBC/HPF 0-3 A code = WBCUCL) UA SQUAMOUS CELLS (test >10 #/hpf code = SQU) UR HCG [id number] 15:53:00 Test Item Value Reference Range Interpretation Comments UR HCG QUAL (test code = HCGQLU) NEGATIVE NEGATIVE COMP. METABOLIC PANEL (40653)2022-10-29 21:16:00 Test Item Value Reference Range Interpretation Comments NA (test code = 140 mmol/L 135-145 1778844837) K (test code = 4.1 mmol/L 3.5-5.0 0480698794) CL (test code = 108 mmol/L 98-108 6844671215) CO2 TOTAL (test code = 25 mmol/L 23-31 1570209990) AGAP (test code = 7 2-16 0059824756) BUN (test code = 7 mg/dL 7-23 8791419619) GLUCOSE (test code = 112 mg/dL 70-110 H 2932225993) CREATININE (test code = 0.96 mg/dL 0.50-1.04 6753446056) TOTAL BILI (test code = 0.8 mg/dL 0.1-1.7 0220612951) CALCIUM (test code = 8.1 mg/dL 8.6-10.6 L 5962376436) T PROTEIN (test code = 6.3 g/dL 6.3-8.2 1878060745) ALBUMIN (test code = 4.2 g/dL 3.5-5.0 4477749511) ALK PHOS (test code = 94 U/L 34-122 6818690154) ALTv (test code = 28 U/L 5-35 2-6) AST(SGOT) (test code = 36 U/L 13-40 5791874723) eGFR (test code = 61.8 mL/min/1.73m2 2428924891) AREN (test code = AREN) Association of [...] tests). Lab Interpretation Abnormal (test code = 70081-9) [facility] WITH [id number] 21:11:40 Test Item Value Reference Range Interpretation [...] (test code = 86.2 fL 39.0-49.9 H 26298-9) RDW-CV (test code = 22.4 % 12.0-15.5 H 788-0) PLT (test code = 151 See_Comment L [Automated 777-3) message] The sy stem which generated this result transmitted reference range : 166 - 358 10*3/ ?L. The reference r stefanie was not used to interpret this result as normal/abnormal . MPV (test code = 12.4 fL 9.5-12.9 20611-1) NRBC/100 WBC (test 0.0 See_Comment [Automat ed code = 9096778589) message] The system which generated this result transmitted reference range : 0.0 - 10.0 /100 WBCs. The refer ence range was not u sed to interpret th is result as normal/abnormal . NRBC x10^3 (test code See_Comment [Auto mated = 5293375858) message] The s ystem which generated this result transmitted reference range : 10*3/?L. The reference range was not used to interpret this result as normal/abnormal . GRAN MAT (NEUT) % 69.5 % (test code = 770-8) IMM GRAN % (test code 0.70 % = 6368218222) LYMPH % (test code = 19.9 % 736-9) MONO % (test code = 7.5 % 5905-5) EOS % (test code = 1.7 % 713-8) BASO % (test code = 0.7 % 706-2) GRAN MAT x10^3(ANC) 2.86 10*3/uL 1.88-7.09 (test code = 0972897058) IMM GRAN x10^3 (test 0.03 10*3/uL 0.00-0.06 code = 2230629991) LYMPH x10^3 (test code 0.82 10*3/uL 1.32-3.29 L = 731-0) MONO x10^3 (test code 0.31 10*3/uL 0.33-0.92 L = 742-7) EOS x10^3 (test code = 0.07 10*3/uL 0.03-0.39 711-2) BASO x10^3 (test code 0.03 10*3/uL 0.01-0.07 = 704-7) Lab Interpretation Abnormal (test code = 27385-2) [facility] METABOLIC PANEL$[id number] 10:00:00 Test Item Value Reference Range Interpretation Comments GLUCOSE-Q (test code 88 mg/dL 65-99 ? = 2345-7) Fasting referen ce interval UREA NITROGEN (BUN)-Q 14 mg/dL 7-25 (test code = 3094-0) CREATININE-Q (test 1.39 mg/dL 0.50-0.99 H code = 2160-0) EGFR-Q (test code = 47 See_Comment L The eGFR is based 87686-0) on the CKD-EPI 2020 equation. To calculate the n ew eGFR from a previous Creatinine or Cystatin Cresul t, go to [email or web address] [email or web address]/stephanie [email or web address] ca [email or web address] [Automated message] The system [...] . SODIUM-Q (test code = 139 mmol/L 048-505 8542-2) POTASSIUM-Q (test 3.5 mmol/L 3.5-5.3 code = 2823-3) CHLORIDE-Q (test code 105 mmol/L 98-110 = 2075-0) CARBON DIOXIDE-Q 23 mmol/L 20-32 (test code = 2028-9) CALCIUM-Q (test code 8.9 mg/dL 8.6-10.2 = 54199-4) AREN (test code = AREN) PERFORMED BY [employer] [place]; [address] [place] [address]; LORRIE QUIROZ MD Lab Interpretation Abnormal (test code = 73219-4) [facility]-Glucose [id number] 11:44:22 Test Item Value Reference Range Interpretation Comments POC-Glucose Meter (test 156 mg/dL 70-110 H : TE STED AT [facility] code = 1538) [address] [place] [address], 770 30: Tile Sorter/Techni waylon ID = [id number] for SREE MARTINEZ Lab Interpretation (test Abnormal code = 90916-7) [facility]-Glucose [id number] 11:44:22 Test Item Value Reference Range Interpretation Comments POC-Glucose Meter (test 156 mg/dL 70-110 H : TE STED AT [facility] code = 1538) [address] [place] [address], 770 30: Tile Sorter/Techni waylon ID = [id number] for SREE MARTINEZ Lab Interpretation (test Abnormal code = 78029-4) [facility]-Glucose [id number] 11:44:22 Test Item Value Reference Range Interpretation Comments POC-Glucose Meter (test 156 mg/dL 70-110 H : TE STED AT [facility] code = 1538) [address] [place] [address], [facility] 30: Tile Sorter/Techni waylon ID = [id number] for JUAN SREE Lab Interpretation (test Abnormal code = 49216-2) [facility] [id number] 11:44:22 Test Item Value Reference Range Interpretation Comments POC-Glucose Meter (test 156 mg/dL 70-110 H : TE STED AT [facility] code = 1538) [address] [place] [address], [facility] 30: Tile Sorter/Techni waylon ID = [id number] for SREE MARTINEZ Lab Interpretation (test Abnormal code = 55886-3) [facility] [id number] 11:44:22 Test Item Value Reference Range Interpretation Comments POC-Glucose Meter (test 156 mg/dL 70-110 H : TE STED AT [facility] code = 1538) [address] [place] [address], [facility] 30: Tile Sorter/Techni waylon ID = [id number] for SREE MARTINEZ Lab Interpretation (test Abnormal code = 50287-9) [facility] [id number] 11:44:22 Test Item Value Reference Range Interpretation Comments POC-GLUCOSE METER 156 mg/dL 70-110 H : TESTED A T [facility] 6720 (BEAKER) (test code = [facility], 1538) [address]: Tile Sorter/Techni waylon ID = [id number] for SREE BLANCHARD POCT-GLUCOSE [id number] 08:01:18 Test Item Value Reference Range Interpretation Comments POC-GLUCOSE METER 116 mg/dL 70-110 H : TESTED A T [facility] 6720 (BEAKER) (test code = [facility], 1538) [address]: Tile Sorter/Techni waylon ID = [id number] for SREE BLANCHARD [id number] 05:04:32 Test Item Value Reference Range Interpretation Comments HAPTOGLOBIN (BEAKER) (test code = 30 mg/dL 14-258 366) Tile Sorter ID - NICHELLE LLACTATE DEHYDROGENASE (LDH)2022-10-25 04:52:08 Test Item Value Reference Range Interpretation Comments LACTATE DEHYDROGENASE (BEAKER) (test 416 U/L 125-220 H code = 635) Tile Sorter ID Jonathan STEWARD [id number] 04:52:07 Test Item Value Reference Range Interpretation Comments MAGNESIUM (BEAKER) (test code = 2.0 mg/dL 1.6-2.6 627) Tile Sorter ID Jonathan STEWARD LHEPATIC FUNCTION [id number] 04:52:07 Test Item Value Reference Range Interpretation [...] (test code = 18 U/L 6-55 347) Tile Sorter ID Jonathan STEWARD LBASIC METABOLIC [id number] 04:52:06 Test Item Value Reference Range Interpretation [...] decreased 60-89 G3a Mildl y to moderately 45- 59 G3b Moderately to s everely 30-44 G4 Severl y decreased 15-29 G5 Kidney failure <15Reported eGF R is based on the CKD-EPI 2021 equation that d oes not use a race coefficientEsti mated GFR is not as accur ate as Creatinine Katelyn rachell in predicting glom erular filtration rate . Estimated GFR is not appl icable for dialysis patien ts Tile Sorter ID - PIAYA LCBC W/PLT COUNT & AUTO [id number] 04:03:09 Test Item Value Reference Range Interpretation [...] PERCENT (BEAKER) (test code = 2801) RETICULOCYTE [id number] 04:03:06 Test Item Value Reference Range Interpretation Comments RETICULOCYTE COUNT PCT (BEAKER) (test 26.7 % 0.5-1.7 H code = 575) Tile Sorter ID - 6000POCT-GLUCOSE [id number] 23:24:20 Test Item Value Reference Range Interpretation Comments POC-GLUCOSE METER 129 mg/dL 70-110 H : TESTED A T [facility] 6720 (BEAKER) (test code = [facility], 153) [address]: Tile Sorter/Techni waylon ID = [id number] for DAYAN BUTTSIA POCT-GLUCOSE [id number] 17:45:20 Test Item Value Reference Range Interpretation Comments POC-GLUCOSE METER 214 mg/dL 70-110 H : TESTED A T [facility] 6720 (BEAKER) (test code = [facility], 153) 95885: Tile Sorter/Techni waylon ID = [id number] for TE WILFREDO, NAVI POCT-GLUCOSE [id number] 11:53:05 Test Item Value Reference Range Interpretation Comments POC-GLUCOSE METER 154 mg/dL 70-110 H : TESTED A T [facility] 6720 (BEAKER) (test code = [facility], 153) 71882: Tile Sorter/Techni waylon ID = [id number] for TE WILFREDO, NAVI POCT-GLUCOSE [id number] 07:48:48 Test Item Value Reference Range Interpretation Comments POC-GLUCOSE METER 116 mg/dL 70-110 H : TESTED A T [facility] 67[facility] (BEAKER) (test code = [place], 1538) [address]: Tile Sorter/Techni waylon ID = [id number] for NAVI LOWE HEPATIC FUNCTION [id number] 04:05:23 Test Item Value Reference Range Interpretation [...] (test code = 19 U/L 6-55 347) Tile Sorter ID - NEELAM WSpecimen slightly ictericLACTATE DEHYDROGENASE (LDH) 2022-10-24 04:05:23 Test Item Value Reference Range Interpretation Comments LACTATE DEHYDROGENASE (BEAKER) (test 410 U/L 125-220 H code = 635) Tile Sorter ID Jonathan RICHTER WC-REACTIVE [id number] 04:05:23 Test Item Value Reference Range Interpretation Comments C-REACTIVE PROTEIN (BEAKER) (test 0.38 mg/dL 0.00-0.50 code = 676) Tile Sorter ID - NEELAM [id number] 04:05:22 Test Item Value Reference Range Interpretation Comments MAGNESIUM (BEAKER) (test code = 2.1 mg/dL 1.6-2.6 627) Tile Sorter ID - NEELAM WBASIC METABOLIC [id number] 04:05:22 Test Item Value Reference Range Interpretation [...] not appl icable for dialysis patien ts Tile Sorter ID - NEELAM WSpecimen slightly [id number] 04:00:05 Test Item Value Reference Range Interpretation Comments HAPTOGLOBIN (BEAKER) (test code = 15 mg/dL 14-258 366) Tile Sorter ID - ADMINCBC W/PLT COUNT & AUTO [id number] 03:40:48 Test Item Value Reference Range Interpretation [...] PERCENT (BEAKER) (test code = 2801) RETICULOCYTE [id number] 03:40:45 Test Item Value Reference Range Interpretation Comments RETICULOCYTE COUNT PCT (BEAKER) (test 25.4 % 0.5-1.7 H code = 575) Tile Sorter ID - 6000POCT-GLUCOSE [id number] 22:02:38 Test Item Value Reference Range Interpretation Comments POC-GLUCOSE METER 142 mg/dL 70-110 H : [facility] (BEAKER) (test code = [place], 1538) [address]: Tile Sorter/Techni waylon ID = [id number] for KEIRA BERG POCT-GLUCOSE [id number] 17:37:11 Test Item Value Reference Range Interpretation Comments POC-GLUCOSE METER 168 mg/dL 70-110 H : TESTED A T [facility] 6720 (RHEA) (test code = ROZ Gutiér[place], 1538) [address]: Tile Sorter/Techni waylon ID = [id number] for NAVI LOWE POCT-GLUCOSE [id number] 12:37:13 Test Item Value Reference Range Interpretation Comments POC-GLUCOSE METER 166 mg/dL 70-110 H : TESTED A T [facility] 6720 (RHEA) (test code = ROZ Gutiérrez [facility], 1538) [address]: Tile Sorter/Techni waylon ID = [id number] for NAVI LOWE Antibody [id number] 12:29:00 Test Item Value Reference Range Interpretation [...] transfus ion be required, Rh an d [place] pheno-matched, crossmatch comp atible RBCs will be is sued. Electronic Sign ature: Vik Renae M.D. [facility] [id number] 12:29:00 Test Item Value Reference Range Interpretation [...] sued. Electronic Sign ature: Vik Renae M.D. [facility] qutuhasqhdaems1192-07-09 12:29:00 Test Item Value Reference Range Interpretation [...] transfus ion be required, Rh an d [place] pheno-matched, crossmatch comp atible RBCs will be is sued. Electronic Sign ature: Vik Renae M.D. [facility] [id number] 12:29:00 Test Item Value Reference Range Interpretation [...] transfus ion be required, Rh an d [place] pheno-matched, crossmatch comp atible RBCs will be is sued. Electronic Sign ature: Vik Renae M.D. [facility] [id number] 12:29:00 Test Item Value Reference Range Interpretation [...] sued. Electronic Sign ature: Vik Renae M.D. [facility] CenterPO[facility]SE [id number] 09:38:23 Test Item Value Reference Range Interpretation Comments POC-GLUCOSE METER 112 mg/dL 70-110 H : [facility] (RHEA) (test code = ROZ Gutiérrez [facility], 1538) [address]: Tile Sorter/Techni waylon ID = [id number] for NAVI LOWE HEMOGLOBIN [id number] 08:54:11 Test Item Value Reference Range Interpretation Comments HEMOGLOBIN A1C < % See_Comment [Automated m essage] ELECTROPHORESIS (RHEA) The system which (test code = 3811) generated this result transmitted ref erence range: <=5.6%. The reference range was not used to int erpret this result as normal/abnormal . "The A1c is measured using a NGSP-certified method. HbA1c value equal to or greater than 6.5% as thediagnosis cutoff for diabetes. An HbA1c value of 5.7- 6.4% indicates increased risk for diabetes (prediabetes)."Tile Sorter ID - ADM [id number] 05:49:52 Test Item Value Reference Range Interpretation Comments FERRITIN (BEAKER) (test code = 371.94 ng/mL 5.00-275.00 H 361) Tile Sorter ID - NEIL [id number] 05:24:24 Test Item Value Reference Range Interpretation Comments HAPTOGLOBIN (BEAKER) (test code = < mg/dL 14-258 L 366) Tile Sorter ID - ADMINC-REACTIVE [id number] 05:15:33 Test Item Value Reference Range Interpretation Comments C-REACTIVE PROTEIN (BEAKER) (test 0.67 mg/dL 0.00-0.50 H code = 676) Tile Sorter ID - NEIL GHEPATIC FUNCTION [id number] 05:15:32 Test Item Value Reference Range Interpretation [...] (test code = 20 U/L 6-55 347) Tile Sorter ID - NEIL GLACTATE DEHYDROGENASE (LDH)2022-10-23 05:15:32 Test Item Value Reference Range Interpretation Comments LACTATE DEHYDROGENASE (BEAKER) (test 443 U/L 125-220 H code = 635) Tile Sorter ID - NEIL GBASIC METABOLIC [id number] 05:15:31 Test Item Value Reference Range Interpretation [...] not appl icable for dialysis patien ts Tile Sorter ID - NEIL [id number] 05:15:31 Test Item Value Reference Range Interpretation Comments MAGNESIUM (BEAKER) (test code = 2.1 mg/dL 1.6-2.6 627) Tile Sorter ID - NEIL GCBC W/PLT COUNT & AUTO [id number] 04:59:58 Test Item Value Reference Range Interpretation [...] PERCENT (BEAKER) (test code = 2801) RETICULOCYTE [id number] 04:59:04 Test Item Value Reference Range Interpretation Comments RETICULOCYTE COUNT PCT (BEAKER) (test 25.8 % 0.5-1.7 H code = 575) Tile Sorter ID - [id number] ID - [id number]-GLUCOSE [id number] 22:53:45 Test Item Value Reference Range Interpretation Comments POC-GLUCOSE METER 161 mg/dL 70-110 H : TESTED A T [facility] 6720 (BEAKER) (test code = ROZ MARROQUIN MS, 1538) 68311: Tile Sorter/Techni waylon ID = [id number] for DA UPHIN, LUCKSON RAD, ABDOMEN/KUB, 1 VIEW [id number] 20:13:00Reason for exam:->[facility] : 1975 Sex: FFINAL [...] 95-100% range. PERIPHERAL BLOOD SMEAR - HOLD [id number] 13:47:13 Test Item Value Reference Range Interpretation Comments PERIPHERAL SMEAR SAVE Saved 1 slide at 1346 (BEAKER) (test code = 1815) [id number] 12:57:37 Test Item Value Reference Range Interpretation Comments HAPTOGLOBIN (BEAKER) (test code = < mg/dL 14-258 L 366) Tile Sorter ID - ADMINVITAMIN [id number] 12:33:39 Test Item Value Reference Range Interpretation Comments VITAMIN B12 (BEAKER) (test code = 1532 pg/mL 213-816 H 774) Tile Sorter ID - [id number] 12:33:39 Test Item Value Reference Range Interpretation Comments FERRITIN (BEAKER) (test code = 418.77 ng/mL 5.00-275.00 H 361) Tile Sorter ID - [id number] 12:15:37 Test Item Value Reference Range Interpretation Comments MAGNESIUM (BEAKER) (test code = 2.0 mg/dL 1.6-2.6 627) Tile Sorter ID - ADMINBILIRUBIN, [id number] 12:15:37 Test Item Value Reference Range Interpretation Comments BILIRUBIN DIRECT (BEAKER) (test 0.6 mg/dL 0.1-0.5 H code = 706) Tile Sorter ID - ADMINLACTATE DEHYDROGENASE (LDH)2022-10-22 12:15:37 Test Item Value Reference Range Interpretation Comments LACTATE DEHYDROGENASE (BEAKER) (test 460 U/L 125-220 H code = 635) Tile Sorter ID - ADMINCOMPREHENSIVE METABOLIC [id number] 12:15:36 Test Item Value Reference Range Interpretation [...] not appl icable for dialysis patien ts Tile Sorter ID - ADMINIRON, TIBC, % SAT. (WITHOUT FERRITIN)2022-10-22 12:07:17 Test Item Value Reference Range Interpretation Comments IRON (BEAKER) (test code = 547) 86.0 ug/dL 40.0-160.0 TOTAL IRON BINDING CAPACITY 306 ug/dL 250-450 (BEAKER) (test code = 769) IRON % SATURATION (2) (BEAKER) 28 % 20-55 (test code = 2590) Tile Sorter ID - ADMINRETICULOCYTE [id number] 12:06:15 Test Item Value Reference Range Interpretation Comments RETICULOCYTE COUNT PCT (BEAKER) (test 24.8 % 0.5-1.7 H code = 575) Tile Sorter ID - [id number] ID - [id number] 12:02:33 Test Item Value Reference Range Interpretation [...] mechanical heart valves.CBC W/PLT COUNT & AUTO [id number] 12:00:27 Test Item Value Reference Range Interpretation [...] 0.00-1.00 PERCENT (BEAKER) (test code = 2801) [id number] 11:58:50 Test Item Value Reference Range Interpretation Comments FIBRINOGEN LEVEL (BEAKER) (test 285 mg/dl 225-434 code = 658) THYROID STIMULATING [id number] 04:51:23 Test Item Value Reference Range Interpretation Comments TSH (test code = See_Comment Biotin has been [id number]) reported to cau se a negative bias, interpret resul ts relative to andrea glasgow's use of biotin. [Automated mess age] The system Fleck generated this result transmitted ref erence range: 0.45 - 4 .70 mIU/L. The refe rence range was not u sed to interpret this result as normal/abnor mal. Lab Interpretation (test Normal code = 64443-5) [facility] [id number] 04:26:53 Test Item Value Reference Range Interpretation Comments FREE T4 (test code = See_Comment [Autom ated message] [id number]) The system Fleck generated this result transmitted ref erence range: 0.78 - 2 .20 ng/dL:. The ref erence range was not u sed to interpret this result as normal/abnor mal. Lab Interpretation (test Normal code = 53290-1) [facility]. METABOLIC PANEL (91210)2022-10-18 23:04:17 Test Item Value Reference Range Interpretation Comments NA (test code = 141 mmol/L 135-145 8138879232) K (test code = 5.1 mmol/L 3.5-5.0 H 9107115044) CL (test code = 109 mmol/L 98-108 H 3042084559) CO2 TOTAL (test code = 21 mmol/L 23-31 L 0125591692) AGAP (test code = 2-16 2162855194) BUN (test code = 7 mg/dL 7-23 1752752891) GLUCOSE (test code = 104 mg/dL 70-110 4936252649) CREATININE (test code = 1.41 mg/dL 0.50-1.04 H 1812971748) TOTAL BILI (test code = 0.8 mg/dL 0.1-1.0 6062493904) CALCIUM (test code = 9.1 mg/dL 8.6-10.6 0942314607) T PROTEIN (test code = 7.5 g/dL 6.3-8.2 3608009754) ALBUMIN (test code = 5.0 g/dL 3.5-5.0 7210816163) ALK PHOS (test code = 139 U/L 34-122 H 7653541107) ALTv (test code = 28 U/L 5-35 2-6) AST(SGOT) (test code = 34 U/L 13-40 8595932895) eGFR (test code = mL/min/1.73m2 1394797188) AREN (test code = AREN) Association of [...] tests). Lab Interpretation Abnormal (test code = 82433-4) [facility] 22[facility]57:36 Test Item Value Reference Range Interpretation Comments LIPASE (test code = 5047272223) 97 U/L 0-220 Lab Interpretation (test code = Normal 61605-1) [facility] [id number] 22:34:52 Test Item Value Reference Range Interpretation [...] (test code = 76.8 fL 39.0-49.9 H 70152-0) RDW-CV (test code = 22.1 % 12.0-15.5 H 788-0) PLT (test code = See_Comment [Automated 777-3) message] The sy stem which generated this result transmitted reference range : 166 - 358 10*3/ ?L. The reference r stefanie was not used to interpret this result as normal/abnormal . MPV (test code = 12.4 fL 9.5-12.9 83824-1) NRBC/100 WBC (test See_Comment [Automat ed code = 5783383770) message] The system which generated this result transmitted reference range : 0.0 - 10.0 /100 WBCs. The refer ence range was not u sed to interpret th is result as normal/abnormal . NRBC x10^3 (test code See_Comment [Auto mated = 8372529052) message] The s ystem which generated this result transmitted reference range : 10*3/?L. The reference range was not used to interpret this result as normal/abnormal . GRAN MAT (NEUT) % 63.1 % (test code = 770-8) IMM GRAN % (test code 1.30 % = 2434665320) LYMPH % (test code = 26.3 % 736-9) MONO % (test code = 6.4 % 5905-5) EOS % (test code = 2.1 % 713-8) BASO % (test code = 0.8 % 706-2) GRAN MAT x10^3(ANC) 2.45 10*3/uL 1.88-7.09 (test code = 3691047664) IMM GRAN x10^3 (test 0.05 10*3/uL 0.00-0.06 code = 1406817199) LYMPH x10^3 (test code 1.02 10*3/uL 1.32-3.29 L = 731-0) MONO x10^3 (test code 0.25 10*3/uL 0.33-0.92 L = 742-7) EOS x10^3 (test code = 0.08 10*3/uL 0.03-0.39 711-2) BASO x10^3 (test code 0.03 10*3/uL 0.01-0.07 = 704-7) Lab Interpretation Abnormal (test code = 91018-4) [facility] [id number] 22:15:00 Test Item Value Reference Range Interpretation Comments POCT PREG (test code = 1605) NEgative On board controls acceptable with C pass Line (test code = 3574) POCT PREG LOT # (test code = 3575) [id number] POCT PREG TEST DATE (test code = 3576) Lab Interpretation (test code = Normal 43477-2) [facility] URINALYSIS, [id number] 16:16:00 Test Item Value Reference Range Interpretation [...] (test code = small Negative - Negative 326) POCT U BLD (test code = negative Negative - Negative 3256) POCT U COLOR (test code = orange 3266) POCT U APPEAR (test code slightly cloudy = 3267) [facility] URINALYSIS, [id number] 16:16:00 Test Item Value Reference Range Interpretation Comments POCT U SP GRAV (test code 1.020 mg/dl 1.005-1.025 = 3255) POCT PH U (test code = 5.5 mg/dl 5-8 3254) POCT U LEUK EST (test negative Negative - Negative code = 3263) POCT U NIT (test code = positive Negative - Negative 3262) POCT U PROT (test code = Negative - Negative 325) POCT U GLU (test code = Negative [...] APPEAR (test code slightly cloudy = 3267) [facility] HEMOGLOBIN A1C [id number] 14:54:00 Test Item Value Reference Range Interpretation Comments POCT HBA1C (test code = 4548-4) 4.6 % 4-6 [facility] HEMOGLOBIN A1C [id number] 14:54:00 Test Item Value Reference Range Interpretation Comments POCT HBA1C (test code = 4548-4) 4.6 % 4-6 [facility] GLUCOSE (AUTOMATED)2022-03-02 13:11:54 Test Item Value Reference Range Interpretation Comments POCT GLU (test code = 7457301201) 137 mg/dL 70-110 H Lab Interpretation (test code = Abnormal 74718-9) [facility] GLUCOSE (AUTOMATED)2022-03-02 13:11:54 Test Item Value Reference Range Interpretation Comments POCT GLU (test code = 7480318917) 137 mg/dL 70-110 H Lab Interpretation (test code = Abnormal 33106-9) [facility] [id number] 12:59:00 Test Item Value Reference Range Interpretation Comments POCT Glu (age>30days) (test code = 137 mg/dL 70-110 A 3342) Lab Interpretation (test code = Abnormal 96032-9) [facility] [id number] 12:59:00 Test Item Value Reference Range Interpretation Comments POCT Glu (age>30days) (test code = 137 mg/dL 70-110 A 3342) Lab Interpretation (test code = Abnormal 01289-7) [facility] [id number] 12:48:00 Test Item Value Reference Range Interpretation Comments POCT PREG (test code = 1605) Negative On board controls acceptable with Yes C Line (test code = 3574) POCT PREG LOT # (test code = 3575) [id number] POCT PREG TEST DATE (test 2023-06-25 code = 3576) [facility] [id number] 12:48:00 Test Item Value Reference Range Interpretation Comments POCT PREG (test code = 1605) Negative On board controls acceptable with Yes C Line (test code = 3574) POCT PREG LOT # (test code = 3575) [id number] POCT PREG TEST DATE (test 2023-06-25 code = 3576) [facility]
[2022-12-09 01:01] LABS: Urine Bacteria <20 /HPF (<20); Urine Mucus Slight /HPF (None Seen); Urine RBC None Seen /HPF (None Seen)
[2022-12-09 01:19] LABS: Absolute Lymphocytes (CBC) 0.6 K/uL (0.7-4.9); Hematocrit 24.9 % (36.0-45.0); Lymphocytes % 25.9 % (15.3-44.8); MCV 100.8 fL (80-100); MPV 9.7 fL (7.6-11.3); RBC Red Blood Cell Count 2.47 M/uL (3.86-4.86)
[2022-12-09 01:28] LABS: Albumin 3.6 g/dL (3.4-5.0); Bilirubin Total 0.8 mg/dL (0.2-1.0); Potassium 4.1 mmol/L (3.5-5.1)
[2022-12-09 02:13] LABS: Anisocytosis 1+; Blood Morphology Comment NOTED (NOT SEEN); Platelet Estimate ADEQ; Polychromasia 1+; White Blood Cell Scan OK (OK)
--- NOTE | 2022-12-09 02:21 | EDPHYS ---
Physician Documentation [facility] Name: Linda Rahman Age: 47 yrs Sex: Female : 1975 Arrival Date: 12/08/2022 Time: 23:33 Bed 2 Private MD: ED Physician Slick Garcia HPI: 12/08 23:45 This 47 yrs old Female presents to ER via EMS with complaints of Back Pain. cp 23:45 The patient presents with pain that is acute, with no known mechanism of injury. 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 lg3 Historical: - Allergies: 23:38 Amoxicillin; lg3 23:38 Codeine; lg3 23:38 Demerol; lg3 23:38 Geodon; lg3 23:38 Meclizine; lg3 23:38 Tessalon Perles; lg3 - Home Meds: 23:38 Buspirone Oral [Active]; citalopram oral [Active]; levothyroxine 50 mcg cap [Active]; lg3 - PMHx: 23:38 Anemia; Anxiety; Asthma; Chronic Abdominal Pain; Depression; diabetes mellitus; lg3 Hypertensive disorder; Hypothyroidism; Migraine; - PSHx: 23:38 Cholecystectomy; tubal ligation; lg3 - Immunization history:: Adult Immunizations up to date, Client reports receiving the 2nd dose of the Covid vaccine, Flu vaccine is up to date. - Social history:: Smoking status: Patient denies any tobacco usage or history of. Patient/guardian denies using alcohol, street drugs. Vital Signs: 23:35 BP 152 / 88; Pulse 89; Resp 17 S; Temp 98.3(O); Pulse Ox 100% on R/A; Weight 94.8 kg lg3 (R); Height 5 ft. 2 in. (R); Pain 10/10; 12/09 00:57 BP 123 / 66; Pulse 76; Resp 18 S; Pulse Ox 100% on R/A; as6 01:59 BP 121 / 66; Pulse 84; Resp 18 S; Pulse Ox 100% on R/A; as6 12/08 23:35 Body Mass Index 38.23 (94.80 kg, 157.48 cm) lg3 12/08 23:35 Pain Scale: Adult lg3 MDM: 12/08 23:43 Patient medically screened. 12/08 23:43 Order name: IV Saline Lock; Complete Time: 00:07 cp 12/08 23:43 Order name: Labs collected and sent; Complete Time: 00:07 cp 12/08 23:43 Order name: Urine Test (obtain specimen); Complete Time: 00:18 cp 12/08 23:43 Order name: Urine Dipstick-Ancillary (obtain specimen); Complete Time: 00:18 cp 12/09 00:17 Order name: Urine Dipstick-Ancillary; Complete Time: 00:35 EDMS 12/09 00:35 Interpretation: Reviewed. 12/09 00:36 Order name: CT Stone Protocol 12/08 23:43 Order name: Urine Microscopic Only; Complete Time: 01:38 cp 12/08 23:43 Order name: CMP; Complete Time: 01:38 cp 12/09 01:38 Interpretation: Normal except: CL 111; GLUC 114; CRE 1.03; GFR 67; CA 8.2; TP 6.0. 12/08 23:43 Order name: Lipase; Complete Time: 01:38 cp 12/09 01:38 Interpretation: Reviewed. 12/08 23:43 Order name: CBC with Diff; Complete Time: 02:18 cp 12/09 01:38 Interpretation: Normal except: WBC 2.30; RBC 2.47; HGB 8.1; HCT 24.9; MCV 100.8; RDW cp 20.4; BASO% 1.5; NEUT A 1.4; LYMA 0.6. 12/09 00:17 Order name: Urine --Ancillary (enter results); Complete Time: 02:18 bb 12/09 01:23 Order name: CBC Smear Scan; Complete Time: 02:18 EDMS Administered Medications: 12/09 00:22 Drug: Ondansetron IVP 4 mg Route: IVP; Site: right antecubital; lg3 00:22 Drug: morphine IVP or IV 4 mg Route: IVP; Infused Over: 4 mins; Site: right antecubital;lg3 00:22 Drug: NS 0.9% IV 1000 ml Route: IV; Rate: 1 bolus; Site: right antecubital; lg3 Disposition Summary: 12/09/22 02:20 Discharge Ordered Location: Home cp Problem: new cp Symptoms: have improved cp Condition: Stable cp Diagnosis - Low back pain cp Followup: cp - With: Private Physician - When: 1 - 2 days - Reason: Recheck today's complaints Forms: - Medication Reconciliation Form cp - Thank You Letter cp - Antibiotic Education cp - Prescription Opioid Use cp Signatures: Dispatcher [employer] EDMS Young Burgos PA PA cp Gibson, Lacie, RN RN lg3
--- NOTE | 2022-12-09 02:21 | ER ---
Nurse's Notes [facility] Name: Linda Rahman Age: 47 yrs Sex: Female : 1975 Arrival Date: 12/08/2022 Time: 23:33 Bed 2 Private MD: Diagnosis: Low back pain Presentation: 12/08 23:35 Chief complaint: Patient states: went to my doctor a few days ago because i think im lg3 dehydrated and my pee is orange and yellow. its still the same color for 3 days and now my back hurts. Coronavirus screen: Client denies travel out of the [place] in the last 14 days. At this time, the client does not indicate any symptoms associated with coronavirus-19. Ebola Screen: No symptoms or risks identified at this time. Initial Sepsis Screen: Does the patient meet any 2 criteria? No. Patient's initial sepsis screen is negative. Does the patient have a suspected source of infection? No. Patient's initial sepsis screen is negative. Risk Assessment: Do you want to hurt yourself or someone else? Patient reports no desire to harm self or others. Onset of symptoms is unknown. 23:35 Method Of Arrival: EMS: [facility] lg3 23:35 Acuity: HOLLEY 3 lg3 Triage Assessment: 23:38 General: Appears in no apparent distress. comfortable, Behavior is calm, cooperative. lg3 Pain: Complains of pain in back Pain does not radiate. Pain currently is 10 out of 10 on a pain scale. EENT: No deficits noted. No signs and/or symptoms were reported regarding the EENT system. Neuro: No deficits noted. Pelletier Agitation-Sedation Scale (RASS): 0 - Alert and Calm Level of Consciousness is awake, alert, obeys commands, Oriented to person, place, time, situation. Cardiovascular: No deficits noted. Denies chest pain, shortness of breath, Capillary refill < 3 seconds Clubbing of nail beds is absent JVD is absent Patient's skin is warm and dry. Respiratory: No deficits noted. Airway is patent Respiratory effort is even, unlabored, Respiratory pattern is regular, symmetrical. GI: No deficits noted. Abdomen is round non-distended, obese, Abd is soft and non tender X 4 quads. : No deficits noted. Reports burning with urination. Derm: No deficits noted. No signs and/or symptoms reported regarding the dermatologic system. Skin is intact, is healthy with good turgor, Skin is dry, Skin is normal, Skin temperature is warm. Musculoskeletal: No deficits noted. No signs and/or symptoms reported regarding the musculoskeletal system. Circulation, motion, and sensation intact. Range of motion: intact in all extremities. 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 lg3 Historical: - Allergies: 23:38 Amoxicillin; lg3 23:38 Codeine; lg3 23:38 Demerol; lg3 23:38 Geodon; lg3 23:38 Meclizine; lg3 23:38 Tessalon Perles; lg3 - Home Meds: 23:38 Buspirone Oral [Active]; citalopram oral [Active]; levothyroxine 50 mcg cap [Active]; lg3 - PMHx: 23:38 Anemia; Anxiety; Asthma; Chronic Abdominal Pain; Depression; diabetes mellitus; lg3 Hypertensive disorder; Hypothyroidism; Migraine; - PSHx: 23:38 Cholecystectomy; tubal ligation; lg3 - Immunization history:: Adult Immunizations up to date, Client reports receiving the 2nd dose of the Covid vaccine, Flu vaccine is up to date. - Social history:: Smoking status: Patient denies any tobacco usage or history of. Patient/guardian denies using alcohol, street drugs. Screenin:42 [facility] ED Fall Risk Assessment (Adult) History of falling in the last 3 months, lg3 including since admission No falls in past 3 months (0 pts). Abuse screen: Denies threats or abuse. Denies injuries from another. Nutritional screening: No deficits noted. Tuberculosis screening: No symptoms or risk factors identified. Assessment: 23:41 General: see triage assessment . lg3 12/09 00:57 Reassessment: Patient appears in no apparent distress at this time. as6 01:59 Reassessment: Patient appears in no apparent distress at this time. Patient and/or as6 family updated on plan of care and expected duration. Pain level reassessed. Patient is alert, oriented x 3, equal unlabored respirations, skin warm/dry/pink. Vital Signs: 12/08 23:35 BP 152 / 88; Pulse 89; Resp 17 S; Temp 98.3(O); Pulse Ox 100% on R/A; Weight 94.8 kg lg3 (R); Height 5 ft. 2 in. (R); Pain 10/; 12/09 00:57 BP 123 / 66; Pulse 76; Resp 18 S; Pulse Ox 100% on R/A; as6 01:59 BP 121 / 66; Pulse 84; Resp 18 S; Pulse Ox 100% on R/A; as6 12/08 23:35 Body Mass Index 38.23 (94.80 kg, 157.48 cm) lg3 12/08 23:35 Pain Scale: Adult lg3 ED Course: 12/08 23:33 Patient arrived in ED. lg3 23:34 Young Burgos PA is PHCP. cp 23:34 Slick Garcia MD is Attending Physician. cp 23:38 Triage completed. lg3 23:38 Arm band placed on right wrist. lg3 23:42 Patient has correct armband on for positive identification. Placed in gown. Bed in low lg3 position. Call light in reach. Side rails up X 1. Client placed on continuous cardiac and pulse oximetry monitoring. NIBP monitoring applied. Door closed. Noise minimized. Warm blanket given. 12/09 00:07 Inserted saline lock: 20 gauge in right antecubital area, using aseptic technique. as6 Blood collected. 01:36 CT Stone Protocol In Process Unspecified. EDMS Administered Medications: 00:22 Drug: Ondansetron IVP 4 mg Route: IVP; Site: right antecubital; lg3 00:22 Drug: morphine IVP or IV 4 mg Route: IVP; Infused Over: 4 mins; Site: right antecubital;lg3 00:22 Drug: NS 0.9% IV 1000 ml Route: IV; Rate: 1 bolus; Site: right antecubital; lg3 Outcome: 02:20 Discharge ordered by . cp Signatures: Dispatcher [employer] EDMS Young Burgos PA PA cp Gibson, Lacie, RN RN lg3 Anselmo Crandall RN RN as6
[2022-12-09] MEDS ORDERED: LIDOCAINE 4% PATCH ONE (02:33)
[2022-12-09] MEDS ORDERED: KETOROLAC 30 MG/ML INJ ONE (02:33)
[2022-12-09 11:10] VITALS: TEMP 98.3; O2SAT 100
[2022-12-09 11:12] VITALS: BP 121/66
--- NOTE | 2022-12-09 12:36 | RAD REPORT ---
EXAM DESCRIPTION: CT - Stone Protocol - 12/09/2022 6:26 am CLINICAL HISTORY: 47 years, Female, mid back pain COMPARISON: 11/10/2022 TECHNIQUE: Multiple transaxial tomograms of the abdomen and pelvis were performed from the lung base s to the symphysis pubis utilizing 3 mm slice thickness at 3 mm interval reconstruction, without admi nistration of IV and oral contrast. Multiplanar reformats in the sagittal and coronal plane were generated and reviewed. This exam was performed according to our departmental dose-optimization protocol, which includes auto mated exposure control, adjustment of the mA and/or kV according to patient size and/or use of iterat david reconstruction technique. FINDINGS: The lack of IV and oral contrast limits evaluation of solid organs, subtle lesions cannot be excluded. The lung bases demonstrate mild elevation of the right hemidiaphragm minimal compressive atelectatic changes right posterior CP angle. Grossly the unopacified liver, pancreas and adrenal glands demonstrate to be within normal limits, no significant focal lesions were identified. There is a status post cholecystomy. There is splenomegaly measuring 21 cm on coronal image 48/129. The kidneys demonstrate grossly unremarkable. There is no evidence for nephrolithiasis and/or hydro nephrosis. Grossly the unopacified stomach, small bowel and large bowel demonstrate to be within normal limits. There is no evidence for bowel dilatation/or free air. The urinary bladder demonstrate to be within normal limits. The uterus demonstrate to be within phil l limits. No significant adnexal masses are identified. The aorta demonstrate to be within normal dewitt its. There is no retroperitoneal lymphadenopathy. There is no evidence for ascites. The rest of t he soft tissue demonstrate to be grossly unremarkable. IMPRESSION: No evidence for nephrolithiasis and/or hydronephrosis. Splenomegaly. Status post cholecystomy. Electronically signed by: Bon Carpio MD 12/09/2022 1:58 AM CDT Due to temporary technical issues with the PACS/Fluency reporting system, reports are being signed by the in house radiologists without review as a courtesy to insure prompt reporting. The interpreting radiologist is fully responsible for the content of the report.
== END 2022-12-09 02:42 | disposition home or self-care (01) ==
LOC: ER 23:31
DX: M54.50 Low back pain, unspecified (principal)
CPT/HCPCS: 96361; 85025; 36415; 81025; 83690; 80053; 76377; 74176; 96375; 96374; 99284; J2001; J2405; J7030; 81003; 81015

== ENCOUNTER 2022-12-15 18:51 | Inpatient (IN) | payer OTHER ==
--- OUTSIDE RECORDS SUMMARY | 2022-12-15 20:12 | XMS REPORT | Continuity of Care Document ---
:1975 Author Organization [facility] [place] [facility] t Address [address] [place] [address] Care Team Providers Name Role Phone TRAY JOLLY Primary Care Physician Unavailable CECILE MÁRQUEZ Attending Clinician Unavailable TRAY JOLLY Attending Clinician Unavailable NAV ANTONIO Attending Clinician Unavailable MARIBEL CORNELIUS Attending Clinician Unavailable AUBRIE SCHAEFFER Attending Clinician Unavailable Nisa HOLLINS, Andrea Adams Attending Clinician Neris Estrada Attending Clinician Unavailable Nav Antonio MD Attending Clinician Doctor Unassigned, [place] Attending Clinician Unavailable Maribel Joy Attending Clinician Cecile Márquez MD Attending Clinician Saira FUCHS MD, Bon [place] Attending Clinician [facility] Attending Clinician Tray Jolly MD Attending Clinician SHENA PEREA Attending Clinician Unavailable Shena Perea DO Attending Clinician Van HOLLINS, Elisha Attending Clinician ELISHA ARAUJO Attending Clinician Unavailable PANTERA CHAWLA Attending Clinician Unavailable Ashlie HOLLINS, iLsandro Attending Clinician [phone] Jose Antonio HOLLINS, Livia Camops Attending Clinician Melanie HOLLINS, Pantera Rider Attending Clinician GREG JACKSON Attending Clinician Unavailable Kvng Stark RN Attending Clinician Unavailable Kemal Hackett Attending Clinician Geovanny Willis MD Attending Clinician Deshaun Saavedra MD Attending Clinician Vern Bernardo DO Attending Clinician [phone], [facility] Attending Clinician Unavailable MIROSLAVA ELIZABETH Attending Clinician Unavailable LAYNE YI Attending Clinician Unavailable Beckie Lopez Attending Clinician [phone] Layne Yi MD Attending Clinician BECKIE [...] ANDREA PAULA Attending Clinician Unavailable Yumiko NI, Daphney Attending Clinician Gramm Corry JOHNS [...] Policy Number Effective Date Expiration Date Barry LOVE/[facility] DUAL [id number] 2021 COMP CHOICE PPO DSNP 00:00:[address] [facility] [place] STAR PLUS [id number] 2021 00:00:00 [place]ICAID OF [place] [id number] 2016 00:00:00 [employer] [facility] [place] [id number] 2022 00:00:00 [employer] [facility] [id number] 2022 HMO 00:00:00 [facility] [id number] 2022 PLAN 00:00:00 [facility] [id number] 2021 (MEDICARE 00:00:00 REPLACEMENT HMO) [employer] [id number] 2020 BEHAVIORAL SOLUTIONS 00:00:00 Problems Condition Condition [...] rs rhinitis rhinitis 24 ity of 00:00: [address] Branch (HFpEF) (HFpEF) Disease Active Univers [...] Disease Active Univers 1-20 ity of 00:00: [place] [facility] Nausea Nausea Disease Active Univers 1-20 ity of 00:00: Medical Branch Gastritis Gastritis Disease Active Uni vers without without 1-20 ity of bleeding, bleeding, 00:00: Laura forrester unspecifie unspecifie 00 Me dical d d Branch chronicity chronicity , , unspecifie unspecifie d d gastritis gastritis type type Overflow Overflow Disease Active Unive rs diarrhea diarrhea 1-20 ity of 00:00: [place] [facility] Allergy, Allergy, Disease Active 2021-09 [...] pelvic 4-08 ity of fundus fundus 00:00: [place] [facility] 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 Added automatic ally from request for surgery [id number] Chronic Chronic Disease Active Overview: Univ ers superficia superficia 4-05 Formattin ity of l l 00:00: g of this [place] gastritis gastritis 00 note Medi cipriano without without might be Branch bleeding bleeding different from the original. Added automatic ally from request for surgery [id number] Hyperplast Hyperplast Disease Active Overview : Univers ic polyps ic polyps 4-05 Formattin i ty of of stomach of stomach 00:00: g of this note Medical might be Branch different from the original. Added automatic ally from request for surgery [id number] Indigestio Indigestio Disease Active 2020-09 Overview : Univers n n 2-15 Formattin ity of 00:00: g of this note Medical might be Branch different from the original. Added automatic ally from request for surgery [id number] Bloating Bloating Disease Active 2020-09 Overview: Un jerrod 2-15 Formattin ity of 00:00: g of this 00 note Medical might be Branch different from the original. Added automatic ally from request for surgery [id number] Dental Dental Disease Active Univers caries caries [...] uterine 5-23 ity of bleeding bleeding 00:00: [place] [facility] Branch Submucous Submucous Disease Active Uni vers leiomyoma leiomyoma 5-23 ity of of uterus [place] [address] [place] [address] Branch NSAID NSAID Disease Active Univers long-term long-term 2-16 ity of use use 00:00: [place] [facility] Branch History of History of Disease Active U nivers tubal tubal 2-05 ity of ligation ligation 00:00: [address] Branch 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 00:[place] disorder, disorder, [address] [place] [address] in in Branch remission remission Hypothyroi Hypothyroi Disease Active U nivers d d 2-05 ity of 00:00: [place] [facility] Essential Essential Disease Active Uni vers hypertensi hypertensi 2-05 it y of on, benign on, benign 00:00[place] [facility] Well woman Well woman Disease Active U nivers exam exam 2-05 ity of 00:00: [place] [facility] Chest pain Chest pain Disease Active U nivers 9-13 ity of 00:: [address] Peripheral Peripheral Disease Active U nivers neuropathy neuropathy it y of [facility] 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 ity of [facility] PCOS PCOS Disease Active Univers (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) [facility] Branch Allergies, Adverse Reactions, Alerts Allergy Allergy Status Severity Reaction(s) Onset Inactive Treating Comm ents Source Name Type Date Date Clinician tomato FA Active [place] SNEEZING [facility] 2-25 Clear 00:00: [place] [facility] ziprasid DA Active SV HALLUCINATIO HC A one NS 2-25 Clear 00:00: Lynn [facility] lorazepa DA Active SV SWELLING [facility] m 2-25 Clear 00:00: [place] [facility] codeine DA Active [place] ITCHING [facility] 2-25 Clear 00:00: [place] [facility] amoxicil DA Active [place] HIVES [facility] helen 2-25 Clear 00:00: Lynn 00 [facility] meperidi DA Active U UNKNOWN [facility] ne 2-25 Clear 00:00: Lynn [facility] diphenhy DA Active [place] SWELLING [facility] dramine 2-25 Clear 00:00: Lynn 00 [facility] meclizin DA Active SV ANAPHYLAXIS [facility] e 2-25 Clear 00:00: [place] 00 [facility] meperidi DA Active U UNKNOWN [facility] ne [address] 00:00: d 00 [facility] ziprasid DA Active SV HALLUCINATIO HC A one NS 11-19 [place] 00:00: d [facility] Milk Propensi Active Other - See [...] Active Low Other-Cmnt 2017-0 Univer s INGREDI 04-03 ity of 00:00: [place] 00 Medical Branch CODEINE Allergy Active Low Itching 2018-[address] [facility] [facility]: Medical [facility] [place] Codeine Drug Active Itching 2018-[address] Allergy 1-17 [facility] 00:[facility]: Medical 00 [place] Codeine Propensi Active Itching 2018-0 Univer s ty to 1-17 ity of adverse 00:00: [place] reaction 00 Medical s Branch CODEINE DRUG Active Low ITCHING 2018-0 Univers INGREDI 1-17 ity of 00:00: [place] 00 Medical Branch LORAZEPA DRUG Active High Swelling 2017- Univer s M INGREDI 0-02 ity of 00:00: [place] 00 Medical Branch LORAZEPA Allergy Active High Swelling 2017- [facility] Center Lorazepa Drug Active Swelling 2017- Hard to [facility] m Allergy 0-02 swallow [facility] 00:[facility]: Medical 00 Center Lorazepa Propensi Active Swelling 2017-1 Hard to Uni vers m ty to 0-02 swallow ity of adverse 00:00: [place] reaction 00 Medical s Branch Diphenhy Propensi Active Swelling 2017-0 Univ ers dramine ty to 7-18 ity of Hcl adverse 00:00: [place] reaction 00 Medical s Branch DIPHENHY DRUG Active High Swelling 2017-0 Univer s DRAMINE INGREDI 7-18 ity of HCL 00:00: [place] 00 Medical Branch DIPHENHY Allergy Active High Swelling 2017-0 [facility] DRAMINE 7-18 [facility]CL 00:[facility]: Medical 00 Center Diphenhy Drug Active Swelling 2017-[address] dramine Allergy 7-18 [facility] 00:[facility]: Medical 00 Center Benzonat Propensi Active Swelling 2017-0 Tightness U nivers ate ty to 2-09 in ity of adverse 00:00: throat, [place] reaction 00 difficult Medic al s to y Branch drug swallowin g and breathing BENZONAT DRUG Active High Swelling 2017-0 Univer s ATE INGREDI 2-09 ity of 00:00: [place] 00 Medical Branch BENZONAT Allergy Active High Swelling 2017-0 [facility] ATE 2[facility]09 [facility] 00:[facility]: Medical 00 Center Benzonat Drug Active Swelling 2017-[address] ate Allergy 2-09 in [facility] 00:00: throat, Medical 00 difficult Center y swallowin g and breathing Meclizin Propensi Active Anaphylaxis 2017-0 U nivers e ty to 1-23 ity of adverse 00:00: [place] reaction 00 Medical s Branch MECLIZIN DRUG Active High Anaphylaxis 2017-0 Uni vers E INGREDI 1-23 ity of 00:00: [place] 00 Medical Branch MECLIZIN Allergy Active High Anaphylaxis 2017-[address] [facility] 1-23 [facility] 00:[facility]: Medical 00 Center Meclizin Drug Active Anaphylaxis 2017-[address] [facility] e Allergy 1-23 [facility] 00:00: Medical 00 Center Amoxicil Propensi Active Hives 2014-0 Univer s helen ty to 05-30 ity of adverse 00:00: [place] reaction 00 Medical s Branch Meperidi Propensi Active Hallucinatio 2014-0 Univers ne Hcl ty to ns 05-30 ity of adverse 00:00: [place] reaction Medical s Branch Ziprasid Propensi Active Hives 2014-0 Univer s one Hcl ty to 04 ity of adverse 00:00: [place] reaction 00 Medical s Branch MEPERIDI DRUG Active High Hallucinates 2015-0 Un jerrod NE HCL INGREDI 9- ity of 00:00: [place] 00 Medical Branch ZIPRASID DRUG Active High Hives 2015-0 Univers ONE HCL INGREDI 9- ity of 00:00: [place] 00 Medical Branch AMOXICIL DRUG Active High Hives 2014-0 Univers HELEN INGREDI 9-04 ity of 00:00: [place] 00 Medical Branch AMOXICIL Allergy Active High Hives 2015-[address] [facility] HELEN 9-04 [facility] 00:[facility]: Medical 00 Center MEPERIDI Allergy Active High 2015-[address] [facility] [facility] HCL 9-04 [facility] 00:00: Medical 00 Center ZIPRASID Allergy Active High Hives 2015-[address] ONE HCL 9-04 [facility] 00:00: Medical 00 Center Meperidi Drug Active 2014-[address] ne Hcl Allergy 04 reaction( [facility] 00:00: s): Medical 00 Hallucina Center tions Ziprasid Drug Active Hives [address] one Hcl Allergy 04 [facility] 00:00: Medical 00 Center Amoxicil Drug Active Hives 2014-[address] helen Allergy 9-04 [facility] 00:00: Medical 00 Center Social History Social Habit Start Date Stop Date Quantity Comments Source History SDOH [facility] Alcohol Comment Medical C enter History SDOH Social Unive rsity of [facility] Med ical Together Branch History SDOH Social Unive rsity of [facility] Branch History SDOH Social Unive rsity of [facility] Medical Membership Branch History SDOH Social Unive rsity of [facility] Medical Meetings Branch History SDOH [facility] Alcohol Std Drinks Medica l Center History SDOH [facility] Alcohol Binge Medical Navin ter Exposure to 2022-11-08 2022-11-18 Not sure University of SARS-CoV-2 (event) 00:00:00 08:06:00 [facility] Tobacco use and 2022-10-22 2022-10-[address] [facility] kes exposure 00:00:00 00:00:00 Medical Center Alcohol intake 2022-10-22 2022-10-[address] [facility] 00:00:00 00:00:00 non-drinker Medical Cente r (finding) History SDTN 2022-10-22 2022-10-[address] [facility] Alcohol Frequency 00:00:00 00:00:00 Medical Center History SDTN Social 2022-10-19 2022-10-19 5 Unive rsity of Connections Phone 00:00:00 [facility]:00:00 [facility] Social 2022-10-19 2022-10-19 7 Unive rsity of Connections Living 00:00:00 00:00:00 [place] [facility] History SDTN 2022-10-19 2022-10-19 0 University o f Physical Activity 00:00:00 00:00:00 [facility] DPW Branch History SDTN 2022-10-19 2022-10-19 0 University o f Physical Activity 00:00:00 00:00:00 [facility] MPS Branch History SDTN 2022-10-19 2022-10-19 4 University o f Financial 00:00:00 00:00:00 [place] [facility] History SDTN Food 2022-10-19 2022-10-19 1 Univers ity of Worry 00:00:00 00:00:00 [facility] Branch History SDTN Food 2022-10-19 2022-10-19 1 Univers ity of Scarcity 00:00:00 00:00:00 [place] [facility] History SDTN 2022-10-19 2022-10-19 2 University o f Transport Med 00:00:00 00:00:00 [place] [facility] al Branch History SDTN 2022-10-19 2022-10-19 2 University o f Transport Non-Med 00:00:00 00:00:00 [facility] Branch Tobacco Comment 2022-06-17 2022-06-17 10 years ago Univers ity of 00:00:00 00:00:00 [facility] Cigarettes smoked 2022-06-17 2022-06-17 Univers ity of current (pack per 00:00:00 00:00:00 [facility] ) - Reported Branch Cigarette 2022-06-17 2022-06-17 University of pack-years 00:00:00 00:00:00 [facility] History of tobacco 1982-10-20 2007-10-20 Cigarette Smoker University of use 00:00:00 00:00:00 [facility] Sex [birth year] At [birth year] LORENZO [place] 00:00:00 00:00:00 Medical Center Smoking Status Start Date Stop Date Source Never smoker [facility] Ex-smoker 2022-06-17 00:00:00 2022-06-17 00:00:00 Universi ty [facility] Medications Ordered Filled Start Stop Current Ordering Indication Dosage Frequency Signature Comments Components Source Medication Medication Date Date Medication? Clinician (SIG) Name Name PREGABALIN Yes [id number] TAKE 1 Univers 150 mg 3-07 CAPSULE BY ity of capsule 00:00: MOUTH [place] 00 THREE Medical TIMES Branch DAILY mirabegron 0 Yes [id number] 50mg Take 1 Univers (MYRBETRIQ) 2-22 tablet by ity of 50 mg 00:00: mouth in [place] tablet 00 the Medical morning. Branch mirabegron 0 Yes [id number] 50mg Take 1 Univers (MYRBETRIQ) 2-22 tablet by ity of 50 mg 00:00: mouth in [place] tablet 00 the Medical morning. Branch mirabegron 0 Yes [id number] 50mg Take 1 Univers (MYRBETRIQ) 2-22 tablet by ity of 50 mg 00:00: mouth in [place] tablet 00 the Medical morning. Branch mirabegron 0 Yes [id number] 50mg Take 1 Univers (MYRBETRIQ) 2-22 tablet by ity of 50 mg 00:00: mouth in [place] tablet 00 the Medical morning. Branch mirabegron 0 Yes [id number] 50mg Take 1 Univers (MYRBETRIQ) 2-22 tablet by ity of 50 mg 00:00: mouth in [place] tablet 00 the Medical morning. Branch CYANOCOBALA 0 Yes [id number] INJECT 1 Univers MIN 1,000 2-07 ML ity of mcg/mL 00:00: INTRAMUSCU [place] injection 00 LARLY Medical EVERY TWO Branch WEEKS semaglutide 2022-0 Yes [id number] Inject Univers (OZEMPIC) 2-07 0.25 mg ity of 0.25 mg or 00:00: [place] 0.5 mg(2 00 skin Medical mg/1.5 mL) weekly. Branch PnIj CYANOCOBALA 2023-0 Yes [id number] INJECT 1 Univers MIN 1,000 2-07 ML ity of mcg/mL 00:00: INTRAMUSCU [place] injection 00 LARLY Medical EVERY TWO Branch WEEKS semaglutide Yes [id number] Inject Univers (OZEMPIC) 2-07 0.25 mg ity of 0.25 mg or 00:00: [place] the [place] 0.5 mg(2 00 skin Medical mg/1.5 mL) weekly. Branch PnIj CYANOCOBALA 0 Yes [id number] INJECT 1 Univers MIN 1,000 2-07 ML ity of mcg/mL 00:00: INTRAMUSCU [place] injection 00 LARLY Medical EVERY TWO Branch WEEKS semaglutide Yes [id number] Inject Univers (OZEMPIC) 2-07 0.25 mg ity of 0.25 mg or 00:00: under the [place] 0.5 mg(2 00 skin Medical mg/1.5 mL) weekly. Branch PnIj CYANOCOBALA Yes [id number] INJECT 1 Univers MIN 1,000 2-07 ML ity of mcg/mL 00:00: INTRAMUSCU [place] injection 00 LARLY Medical EVERY TWO Branch WEEKS semaglutide Yes [id number] Inject Univers (OZEMPIC) 2-07 0.25 mg ity of 0.25 mg or 00:00: under the [place] 0.5 mg(2 00 skin Medical mg/1.5 mL) weekly. Branch PnIj CYANOCOBALA 0 Yes [id number] INJECT 1 Univers MIN 1,000 2-07 ML ity of mcg/mL 00:00: INTRAMUSCU [place] injection 00 LARLY Medical EVERY TWO Branch WEEKS semaglutide 0 Yes [id number] Inject Univers (OZEMPIC) 2-07 0.25 mg ity of 0.25 mg or 00:00: under the [place] 0.5 mg(2 00 skin Medical mg/1.5 mL) weekly. Branch PnIj CYANOCOBALA 0 Yes [id number] INJECT 1 Univers MIN 1,000 2-07 ML ity of mcg/mL 00:00: INTRAMUSCU [place] injection 00 LARLY Medical EVERY TWO Branch WEEKS semaglutide 0 Yes [id number] Inject Univers (OZEMPIC) 2-07 0.25 mg ity of 0.25 mg or 00:00: under the [place] 0.5 mg(2 00 skin Medical mg/1.5 mL) weekly. Branch PnIj CYANOCOBALA 0 Yes [id number] INJECT 1 Univers MIN 1,000 2-07 ML ity of mcg/mL 00:00: INTRAMUSCU [place] injection 00 LARLY Medical EVERY TWO Branch WEEKS semaglutide Yes [id number] Inject Univers (OZEMPIC) 2-07 0.25 mg ity of 0.25 mg or 00:00: under the [place] 0.5 mg(2 00 skin Medical mg/1.5 mL) weekly. Branch PnIj CYANOCOBALA 0 Yes [id number] INJECT 1 Univers MIN 1,000 2-07 ML ity of mcg/mL 00:00: INTRAMUSCU [place] injection 00 LARLY Medical EVERY TWO Branch WEEKS semaglutide Yes [id number] Inject Univers (OZEMPIC) 2-07 0.25 mg ity of 0.25 mg or 00:00: under the [place] 0.5 mg(2 00 skin Medical mg/1.5 mL) weekly. Branch PnIj CYANOCOBALA 0 Yes [id number] INJECT 1 Univers MIN 1,000 2-07 ML ity of mcg/mL 00:00: INTRAMUSCU [place] injection 00 LARLY Medical EVERY TWO Branch WEEKS semaglutide 2022-0 Yes [id number] Inject Univers (OZEMPIC) 2-07 0.25 mg ity of 0.25 mg or 00:00: under the [place] 0.5 mg(2 00 skin Medical mg/1.5 mL) weekly. Branch PnIj CYANOCOBALA 2022-0 Yes [id number] INJECT 1 Univers MIN 1,000 2-07 ML ity of mcg/mL 00:00: INTRAMUSCU [place] injection 00 LARLY Medical EVERY TWO Branch WEEKS semaglutide 2022-0 Yes [id number] Inject Univers (OZEMPIC) 2-07 0.25 mg ity of 0.25 mg or 00:00: under the [place] 0.5 mg(2 00 skin Medical mg/1.5 mL) weekly. Branch PnIj CYANOCOBALA 2023-0 Yes [id number] INJECT 1 Univers MIN 1,000 2-07 ML ity of mcg/mL 00:00: INTRAMUSCU [place] injection 00 LARLY Medical EVERY TWO Branch WEEKS semaglutide 2022-0 Yes [id number] Inject Univers (OZEMPIC) 2-07 0.25 mg ity of 0.25 mg or 00:00: under the [place] 0.5 mg(2 00 skin Medical mg/1.5 mL) weekly. Branch PnIj CYANOCOBALA 2022-0 Yes [id number] INJECT 1 Univers MIN 1,000 2-07 ML ity of mcg/mL 00:00: INTRAMUSCU [place] injection 00 LARLY Medical EVERY TWO Branch WEEKS semaglutide 3-0 Yes [id number] Inject Univers (OZEMPIC) 2-07 0.25 mg ity [...] St (COZAAR) 50 1-30 by mouth 2 Rbunilda kes MG tablet 14:26: (two) Medical 13 [...] Medical tablet 13 times Center daily. polyethylen 3-0 Yes 17g Q.5D Take 17 g C [...] 14:26: daily. Medical tablet 13 Center losartan Yes 50mg Take [address] (COZAAR) 50 1-30 by mouth 2 Brunilda kes MG tablet 14:26: (two) Medical 13 times Center daily before meals. ascorbic 0 Yes 1000mg QD Take 1,[address] acid, 1-30 mg by [facility] vitamin C, 14:26: mouth Medica l (ascorbic 13 daily. Center acid with derrell hips) 1000 MG tablet citalopram Yes 40mg QD Take 40 mg C [...] Medical tablet 13 times Center daily. pantoprazol 2023-0 Yes 40mg Take [address] [...] MG tablet 14:26: daily. Medica l 13 [place] topiramate 0 Yes 50mg Q.5D Take [address] (TOPAMAX) 1-30 by mouth 2 Luke s 25 MG 14:26: (two) Medical tablet 13 times [place] daily. rosuvastati Yes 10mg 10 mg, Univ ers n (CRESTOR) 1-25 Oral, QHS, it y of tablet 10 03:00: First dose [place] mg 00 on [facility] 10/19/22 at Branch 2100, Until Discontinu ed, Routine lactulose Yes 30mL 30 mL, Univer s (CEPHULAC) 1-25 Oral, BID, ity of solution 30 02:00: First dose [place] mL 00 (after Medical last Branch modificati on) on [facility] 10/19/22 at 2000, Until Discontinu ed, Routine SUMAtriptan 2022- No 50mg 50 mg, Uni vers (IMITREX) 10-19-24 Oral, ity of tablet 50 20:15: 21:00 ONCE, 1 [place] mg 00 :00 dose, On [facility] Branch 10/19/22 at 1415, Routine NaCl 0.9% 2022- No 500mL at 999 Univ ers (NS) bolus 10-19- mL/hr, 500 it y of infusion 19:30: 18:59 mL, IV [place] 500 mL 00 :00 Piggyback, Medical ONCE, 1 Branch dose, On [facility] 10/19/22 at 1330, STAT MULTIVIT 0 Yes Take by Univer s &MINERALS/F -24 mouth. ity of ERROUS FUM 17:49: [place] (MULTI 09 Medical VITAMIN Branch ORAL) METHYLCELLU Yes Univer s LOSE (FIBER 1-24 ity of THERAPY 17:49: [facility]) Medical Branch DOCUSATE Yes Take by Univer s SODIUM 1-24 mouth. ity of (COLACE 17:49: [place] ORAL) 09 Medical Branch vitamin C Yes 1000mg Take 1,000 Univers with derrell 1-24 mg by ity of hips 1,000 17:49: mouth [place] mg tablet 09 daily. Medical Branch CRANBERRY Yes Take by Unive rs FRUIT 1-24 mouth ity of EXTRACT 17:49: daily. [place] (CRANBERRY 09 Medical ORAL) Branch MULTIVIT Yes Take by Univer s &MINERALS/F 1-24 mouth. ity of ERROUS FUM 17:49: [place] ([place] [address] Medical VITAMIN Branch ORAL) METHYLCELLU Yes Univer s LOSE (FIBER 1-24 ity of THERAPY 17:49: [facility]) Medical Branch DOCUSATE Yes Take by Univer s SODIUM 1-24 mouth. ity of (COLACE 17:49: [place] ORAL) Medical Branch vitamin C Yes 1000mg Take 1,000 Univers with derrell 1-24 mg by ity of hips 1,000 17:49: mouth [place] mg tablet 09 daily. Medical Branch CRANBERRY Yes Take by Unive rs FRUIT 1-24 mouth ity of EXTRACT 17:49: daily. [place] (CRANBERRY 09 Medical ORAL) Branch MULTIVIT Yes Take by Univer s &MINERALS/F 1-24 mouth. ity of ERROUS FUM 17:49: [place] ([place] [address] Medical VITAMIN Branch ORAL) METHYLCELLU Yes Univer s LOSE (FIBER 1-24 ity of THERAPY 17:49: [facility]) Medical Branch DOCUSATE Yes Take by Univer s SODIUM 1-24 mouth. ity of (COLACE 17:49: [place] ORAL) Medical Branch vitamin C Yes 1000mg Take 1,000 Univers with derrell 1-24 mg by ity of hips 1,000 17:49: mouth [place] mg tablet 09 daily. Medical Branch CRANBERRY Yes Take by Unive rs FRUIT 1-24 mouth ity of EXTRACT 17:49: daily. [place] (CRANBERRY 09 Medical ORAL) Branch MULTIVIT Yes Take by Univer s &MINERALS/F 1-24 mouth. ity of ERROUS FUM 17:49: [place] (MULTI 09 Medical VITAMIN Branch ORAL) METHYLCELLU Yes Univer s LOSE (FIBER 1-24 ity of THERAPY 17:49: [facility]) Medical Branch DOCUSATE Yes Take by Univer s SODIUM 1-24 mouth. ity of (COLACE 17:49: [place] ORAL) Medical Branch vitamin C Yes 1000mg Take 1,000 Univers with derrell 1-24 mg by ity of hips 1,000 17:49: mouth [place] mg tablet 09 daily. Medical Branch CRANBERRY Yes Take by Unive rs FRUIT 1-24 mouth ity of EXTRACT 17:49: daily. [place] (CRANBERRY 09 Medical ORAL) Branch MULTIVIT Yes Take by Univer s &MINERALS/F 1-24 mouth. ity of ERROUS FUM 17:49: [place] ([facility] 09 Medical VITAMIN Branch ORAL) METHYLCELLU Yes Univer s LOSE (FIBER 1-24 ity of THERAPY 17:49: [facility]) [address] [place] [address] Branch DOCUSATE Yes Take by Univer s SODIUM 1-24 mouth. ity of (COLACE 17:49: [place] ORAL) [address] [place] [address] Branch vitamin C Yes 1000mg Take 1,000 Univers with derrell 1-24 mg by ity of hips 1,000 17:49: mouth [place] mg tablet 09 daily. Medical Branch CRANBERRY Yes Take by Unive rs FRUIT 1-24 mouth ity of EXTRACT 17:49: daily. [place] (CRANBERRY 09 Medical ORAL) Branch MULTIVIT Yes Take by Univer s &MINERALS/F 1-24 mouth. ity of ERROUS FUM 17:49: [place] (MULTI 09 Medical VITAMIN Branch ORAL) METHYLCELLU Yes Univer s LOSE (FIBER 1-24 ity of THERAPY 17:49: [facility]) Medical Branch DOCUSATE Yes Take by Univer s SODIUM 1-24 mouth. ity of (COLACE 17:49: [place] ORAL) Medical Branch vitamin C Yes 1000mg Take 1,000 Univers with derrell 1-24 mg by ity of hips 1,000 17:49: mouth [place] mg tablet 09 daily. Medical Branch CRANBERRY Yes Take by Unive rs FRUIT 1-24 mouth ity of EXTRACT 17:49: daily. [place] (CRANBERRY 09 Medical ORAL) Branch MULTIVIT Yes Take by Univer s &MINERALS/F 1-24 mouth. ity of ERROUS FUM 17:49: [place] (MULTI 09 Medical VITAMIN Branch ORAL) METHYLCELLU Yes Univer s LOSE (FIBER 1-24 ity of THERAPY 17:49: [place] MISC) 09 Medical Branch DOCUSATE Yes Take by Univer s SODIUM 1-24 mouth. ity of (COLACE 17:49: [place] ORAL) [facility] Branch vitamin C Yes 1000mg Take 1,000 Univers with derrell 1-24 mg by ity of hips 1,000 17:49: mouth [place] mg tablet 09 daily. Medical Branch CRANBERRY Yes Take by Unive rs FRUIT 1-24 mouth ity of EXTRACT 17:49: daily. [place] (CRANBERRY 09 Medical ORAL) Branch MULTIVIT Yes Take by Univer s &MINERALS/F 1-24 mouth. ity of ERROUS FUM 17:49: [place] ([facility] 09 Medical VITAMIN Branch ORAL) METHYLCELLU Yes Univer s LOSE (FIBER 1-24 ity of THERAPY 17:49: [place] MISC) [address] [place] [address] Branch DOCUSATE Yes Take by Univer s SODIUM 1-24 mouth. ity of (COLACE 17:49: [place] ORAL) [address] [place] [address] Branch vitamin C Yes 1000mg Take 1,000 Univers with derrell 1-24 mg by ity of hips 1,000 17:49: mouth [place] mg tablet 09 daily. Medical Branch CRANBERRY Yes Take by Unive rs FRUIT 1-24 mouth ity of EXTRACT 17:49: daily. [place] (CRANBERRY 09 Medical ORAL) Branch MULTIVIT Yes Take by Univer s &MINERALS/F 1-24 mouth. ity of ERROUS FUM 17:49: [place] (MULTI 09 Medical VITAMIN Branch ORAL) METHYLCELLU Yes Univer s LOSE (FIBER 1-24 ity of THERAPY 17:49: [facility]) Medical Branch DOCUSATE Yes Take by Univer s SODIUM 1-24 mouth. ity of (COLACE 17:49: [place] ORAL) 09 Medical Branch vitamin C Yes 1000mg Take 1,000 Univers with derrell 1-24 mg by ity of hips 1,000 17:49: mouth [place] mg tablet 09 daily. Medical Branch CRANBERRY Yes Take by Unive rs FRUIT 1-24 mouth ity of EXTRACT 17:49: daily. [place] (CRANBERRY 09 Medical ORAL) Branch MULTIVIT Yes Take by Univer s &MINERALS/F 1-24 mouth. ity of ERROUS FUM 17:49: [place] (MULTI 09 Medical VITAMIN Branch ORAL) METHYLCELLU Yes Univer s LOSE (FIBER 1-24 ity of THERAPY 17:49: [facility]) 09 Medical Branch DOCUSATE Yes Take by Univer s SODIUM 1-24 mouth. ity of (COLACE 17:49: [place] ORAL) Medical Branch vitamin C Yes 1000mg Take 1,000 Univers with derrell 1-24 mg by ity of hips 1,000 17:49: mouth [place] mg tablet 09 daily. Medical Branch CRANBERRY Yes Take by Unive rs FRUIT 1-24 mouth ity of EXTRACT 17:49: daily. [place] (CRANBERRY 09 Medical ORAL) Branch MULTIVIT Yes Take by Univer s &MINERALS/F 1-24 mouth. ity of ERROUS FUM 17:49: [place] (MULTI 09 Medical VITAMIN Branch ORAL) METHYLCELLU Yes Univer s LOSE (FIBER 1-24 ity of THERAPY 17:49: [facility]) Medical Branch DOCUSATE Yes Take by Univer s SODIUM 1-24 mouth. ity of (COLACE 17:49: [place] ORAL) 09 Medical Branch vitamin C Yes 1000mg Take 1,000 Univers with derrell 1-24 mg by ity of hips 1,000 17:49: mouth [place] mg tablet 09 daily. Medical Branch CRANBERRY Yes Take by Unive rs FRUIT 1-24 mouth ity of EXTRACT 17:49: daily. [place] (CRANBERRY 09 Medical ORAL) Branch MULTIVIT Yes Take by Univer s &MINERALS/F 1-24 mouth. ity of ERROUS FUM 17:49: [place] (MULTI 09 Medical VITAMIN Branch ORAL) METHYLCELLU Yes Univer s LOSE (FIBER 1-24 ity of THERAPY 17:49: [facility]) Medical Branch DOCUSATE Yes Take by Univer s SODIUM 1-24 mouth. ity of (COLACE 17:49: [place] ORAL) [address] [place] [address] Branch vitamin C Yes 1000mg Take 1,000 Univers with derrell 1-24 mg by ity of hips 1,000 17:49: mouth [place] mg tablet 09 daily. Medical Branch CRANBERRY Yes Take by Univ ers FRUIT 1-24 mouth ity of EXTRACT 17:49: daily. [place] (CRANBERRY 09 Medical ORAL) [place] MULTIVIT Yes Take by Univer s &MINERALS/F 1-24 mouth. ity of ERROUS FUM 17:49: [place] ([facility] 09 Medical VITAMIN Branch ORAL) METHYLCELLU Yes Univer s LOSE (FIBER 1-24 ity of THERAPY 17:49: [facility]) [address] [place] [address] Branch DOCUSATE Yes Take by Univer s SODIUM 1-24 mouth. ity of (COLACE 17:49: [place] ORAL) [address] [place] [address] Branch vitamin C Yes 1000mg Take 1,000 Univers with derrell 1-24 mg by ity of hips 1,000 17:49: mouth [place] mg tablet 09 daily. Medical Branch CRANBERRY Yes Take by Unive rs FRUIT 1-24 mouth ity of EXTRACT 17:49: daily. [place] (CRANBERRY 09 Medical ORAL) [place] MULTIVIT Yes Take by Univer s &MINERALS/F 1-24 mouth. ity of ERROUS FUM 17:49: [place] (MULTI 09 Medical VITAMIN Branch ORAL) METHYLCELLU Yes Univer s LOSE (FIBER 1-24 ity of THERAPY 17:49: [facility]) [address] [place] [address] Branch DOCUSATE Yes Take by Univer s SODIUM 1-24 mouth. ity of (COLACE 17:49: [place] ORAL) [address] [place] [address] Branch vitamin C Yes 1000mg Take 1,000 Univers with derrell 1-24 mg by ity of hips 1,000 17:49: mouth [place] mg tablet 09 daily. Medical Branch CRANBERRY Yes Take by Unive rs FRUIT 1-24 mouth ity of EXTRACT 17:49: daily. [place] (CRANBERRY 09 Medical ORAL) Branch MULTIVIT Yes Take by Univer s &MINERALS/F 1-24 mouth. ity of ERROUS FUM 17:49: [place] (MULTI 09 Medical VITAMIN Branch ORAL) METHYLCELLU [...] 1-24 mouth ity of EXTRACT 17:49: daily. [place] (CRANBERRY 09 Medical ORAL) Branch MULTIVIT Yes Take by Univer s &MINERALS/F 1-24 mouth. ity of ERROUS FUM 17:49: [place] ([facility] 09 Medical VITAMIN Branch ORAL) METHYLCELLU Yes [...] 1-24 mouth ity of EXTRACT 17:49: daily. [place] (CRANBERRY 09 Medical ORAL) Branch MULTIVIT Yes Take by Univer s &MINERALS/F 1-24 mouth. ity of ERROUS FUM 17:49: [place] (MULTI 09 Medical VITAMIN Branch ORAL) METHYLCELLU [...] 1-24 mouth ity of EXTRACT 17:49: daily. [place] (CRANBERRY 09 Medical ORAL) Branch MULTIVIT Yes Take by Univer s &MINERALS/F 1-24 mouth. ity of ERROUS FUM 17:49: [place] (MULTI 09 Medical VITAMIN Branch ORAL) METHYLCELLU [...] 1-24 mouth ity of EXTRACT 17:49: daily. [place] (CRANBERRY 09 Medical ORAL) Branch MULTIVIT Yes Take by Univer s &MINERALS/F 1-24 mouth. ity of ERROUS FUM 17:49: [place] ([facility] 09 Medical VITAMIN Branch ORAL) METHYLCELLU Yes [...] 1-24 mouth ity of EXTRACT 17:49: daily. [place] (CRANBERRY 09 Medical ORAL) Branch MULTIVIT Yes Take by Univer s &MINERALS/F 1-24 mouth. ity of ERROUS FUM 17:49: [place] (MULTI 09 Medical VITAMIN Branch ORAL) METHYLCELLU Yes Univer s LOSE (FIBER 1-24 ity of THERAPY 17:49: [facility]) Medical Branch DOCUSATE Yes Take by Univer s SODIUM 1-24 mouth. ity of (COLACE 17:49: [place] ORAL) 09 Medical Branch vitamin C Yes 1000mg Take 1,000 Univers with derrell 1-24 mg by ity of hips 1,000 17:49: mouth [place] mg tablet 09 daily. Medical Branch CRANBERRY Yes Take by Unive rs FRUIT 1-24 mouth ity of EXTRACT 17:49: daily. [place] (CRANBERRY 09 Medical ORAL) Branch MULTIVIT Yes Take by Univer s &MINERALS/F 1-24 mouth. ity of ERROUS FUM 17:49: [place] ([facility] 09 Medical VITAMIN Branch ORAL) METHYLCELLU Yes Univer s LOSE (FIBER 1-24 ity of THERAPY 17:49: [facility]) Medical Branch DOCUSATE Yes Take by Univer s SODIUM 1-24 mouth. ity of (COLACE 17:49: [place] ORAL) 09 Medical Branch vitamin C Yes 1000mg Take 1,000 Univers with derrell 1-24 mg by ity of hips 1,000 17:49: mouth [place] mg tablet 09 daily. Medical Branch CRANBERRY Yes Take by Unive rs FRUIT 1-24 mouth ity of EXTRACT 17:49: daily. [place] (CRANBERRY 09 Medical ORAL) Branch MULTIVIT Yes Take by Univer s &MINERALS/F 1-24 mouth. ity of ERROUS FUM 17:49: [place] (MULTI 09 Medical VITAMIN Branch ORAL) METHYLCELLU Yes Univer s LOSE (FIBER 1-24 ity of THERAPY 17:49: [facility]) 09 Medical Branch DOCUSATE Yes Take by Univer s SODIUM 1-24 mouth. ity of (COLACE 17:49: [place] ORAL) Medical Branch vitamin C Yes 1000mg Take 1,000 Univers with derrell 1-24 mg by ity of hips 1,000 17:49: mouth [place] mg tablet 09 daily. Medical Branch CRANBERRY Yes Take by Unive rs FRUIT 1-24 mouth ity of EXTRACT 17:49: daily. [place] (CRANBERRY 09 Medical ORAL) Branch MULTIVIT Yes Take by Univer s &MINERALS/F 1-24 mouth. ity of ERROUS FUM 17:49: [place] (MULTI 09 Medical VITAMIN Branch ORAL) METHYLCELLU Yes Univer s LOSE (FIBER 1-24 ity of THERAPY 17:49: [facility]) Medical Branch DOCUSATE Yes Take by Univer s SODIUM 1-24 mouth. ity of (COLACE 17:49: [place] ORAL) [address] [place] [address] Branch vitamin C Yes 1000mg Take 1,000 Univers with derrell 1-24 mg by ity of hips 1,000 17:49: mouth [place] mg tablet 09 daily. Medical Branch CRANBERRY Yes Take by Unive rs FRUIT 1-24 mouth ity of EXTRACT 17:49: daily. [place] (CRANBERRY 09 Medical ORAL) [place] MULTIVIT Yes Take by Univer s &MINERALS/F 1-24 mouth. ity of ERROUS FUM 17:49: [place] ([facility] 09 Medical VITAMIN Branch ORAL) METHYLCELLU Yes Univer s LOSE (FIBER 1-24 ity of THERAPY 17:49: [facility]) [address] [place] [address] Branch DOCUSATE Yes Take by Univer s SODIUM 1-24 mouth. ity of (COLACE 17:49: [place] ORAL) [address] [place] [address] Branch vitamin C Yes 1000mg Take 1,000 Univers with derrell 1-24 mg by ity of hips 1,000 17:49: mouth [place] mg tablet 09 daily. Medical Branch CRANBERRY Yes Take by Unive rs FRUIT 1-24 mouth ity of EXTRACT 17:49: daily. [place] (CRANBERRY 09 Medical ORAL) Branch MULTIVIT Yes Take by Univer s &MINERALS/F 1-24 mouth. ity of ERROUS FUM 17:49: [place] (MULTI 09 Medical VITAMIN Branch ORAL) METHYLCELLU Yes Univer s LOSE (FIBER 1-24 ity of THERAPY 17:49: [facility]) Medical Branch DOCUSATE Yes Take by Univer s SODIUM 1-24 mouth. ity of (COLACE 17:49: [place] ORAL) [address] [place] [address] Branch vitamin C Yes 1000mg Take 1,000 Univers with derrell 1-24 mg by ity of hips 1,000 17:49: mouth [place] mg tablet 09 daily. Medical Branch CRANBERRY Yes Take by Unive rs FRUIT 1-24 mouth ity of EXTRACT 17:49: daily. [place] (CRANBERRY 09 Medical ORAL) Branch MULTIVIT Yes Take by Univer s &MINERALS/F 1-24 mouth. ity of ERROUS FUM 17:49: [place] (MULTI 09 Medical VITAMIN Branch ORAL) METHYLCELLU Yes Univer s LOSE (FIBER 1-24 ity of THERAPY 17:49: [place] MISC) 09 Medical Branch DOCUSATE Yes Take by Univer s SODIUM 1-24 mouth. ity of (COLACE 17:49: [place] ORAL) [address] [place] [address] Branch vitamin C Yes 1000mg Take 1,000 Univers with derrell 1-24 mg by ity of hips 1,000 17:49: mouth [place] mg tablet 09 daily. Medical Branch CRANBERRY Yes Take by Unive rs FRUIT 1-24 mouth ity of EXTRACT 17:49: daily. [place] (CRANBERRY 09 Medical ORAL) Branch MULTIVIT Yes Take by Univer s &MINERALS/F 1-24 mouth. ity of ERROUS FUM 17:49: [place] (MULTI 09 Medical VITAMIN Branch ORAL) METHYLCELLU Yes Univer s LOSE (FIBER 1-24 ity of THERAPY 17:49: [facility] [address] [place] [address] Branch DOCUSATE Yes Take by Univer s SODIUM 1-24 mouth. ity of (COLACE 17:49: [place] ORAL) [address] [place] [address] Branch vitamin C Yes 1000mg Take 1,000 Univers with derrell 1-24 mg by ity of hips 1,000 17:49: mouth [place] mg tablet 09 daily. Medical Branch CRANBERRY Yes Take by Unive rs FRUIT 1-24 mouth ity of EXTRACT 17:49: daily. [place] (CRANBERRY 09 Medical ORAL) Branch MULTIVIT Yes Take by Univer s &MINERALS/F 1-24 mouth. ity of ERROUS FUM 17:49: [place] (MULTI 09 Medical VITAMIN Branch ORAL) METHYLCELLU [...] 1-24 mouth ity of EXTRACT 17:49: daily. [place] (CRANBERRY 09 Medical ORAL) Branch MULTIVIT Yes Take by Univer s &MINERALS/F 1-24 mouth. ity of ERROUS FUM 17:49: [place] (MULTI 09 Medical VITAMIN Branch ORAL) METHYLCELLU Yes Univer s LOSE (FIBER 1-24 ity of THERAPY 17:49: [facility]) Medical Branch DOCUSATE Yes Take by Univer s SODIUM 1-24 mouth. ity of (COLACE 17:49: [place] ORAL) Medical Branch vitamin C Yes 1000mg Take 1,000 Univers with derrell 1-24 mg by ity of hips 1,000 17:49: mouth [place] mg tablet 09 daily. Medical Branch CRANBERRY Yes Take by Unive rs FRUIT 1-24 mouth ity of EXTRACT 17:49: daily. [place] (CRANBERRY 09 Medical ORAL) [place] MULTIVIT Yes Take by Univer s &MINERALS/F 1-24 mouth. ity of ERROUS FUM 17:49: [place] (MULTI 09 Medical VITAMIN Branch ORAL) METHYLCELLU 0 Yes Univer s LOSE (FIBER 1-24 ity of THERAPY 17:49: [facility]) Medical Branch DOCUSATE Yes Take by Univer s SODIUM 1-24 mouth. ity of (COLACE 17:49: [place] ORAL) Medical Branch vitamin C Yes 1000mg Take 1,000 Univers with derrell 1-24 mg by ity of hips 1,000 17:49: mouth [place] mg tablet 09 daily. Medical Branch CRANBERRY Yes Take by Unive rs FRUIT 1-24 mouth ity of EXTRACT 17:49: daily. [place] (CRANBERRY 09 Medical ORAL) Branch MULTIVIT 2023-0 Yes Take by Univer s &MINERALS/F 1-24 mouth. ity of ERROUS FUM 17:49: [place] (MULTI 09 Medical VITAMIN Branch ORAL) METHYLCELLU Yes Univer s LOSE (FIBER 1-24 ity of THERAPY 17:49: [facility]) Medical Branch DOCUSATE Yes Take by Univer s SODIUM 1-24 mouth. ity of (COLACE 17:49: [place] ORAL) Medical Branch vitamin C Yes 1000mg Take 1,000 Univers with derrell 1-24 mg by ity of hips 1,000 17:49: mouth [place] mg tablet 09 daily. Medical Branch CRANBERRY Yes Take by Unive rs FRUIT 1-24 mouth ity of EXTRACT 17:49: daily. [place] (CRANBERRY 09 Medical ORAL) Branch MULTIVIT Yes Take by Univer s &MINERALS/F 1-24 mouth. ity of ERROUS FUM 17:49: [place] (MULTI 09 Medical VITAMIN Branch ORAL) METHYLCELLU Yes Univer s LOSE (FIBER 1-24 ity of THERAPY 17:49: [facility]) Medical Branch DOCUSATE Yes Take by Univer s SODIUM 1-24 mouth. ity of (COLACE 17:49: [place] ORAL) Medical Branch vitamin C Yes 1000mg Take 1,000 Univers with derrell 1-24 mg by ity of hips 1,000 17:49: mouth [place] mg tablet 09 daily. Medical Branch CRANBERRY Yes Take by Unive rs FRUIT 1-24 mouth ity of EXTRACT 17:49: daily. [place] (CRANBERRY 09 Medical ORAL) Branch MULTIVIT Yes Take by Univer s &MINERALS/F 1-24 mouth. ity of ERROUS FUM 17:49: [place] (MULTI 09 Medical VITAMIN Branch ORAL) METHYLCELLU Yes Univer s LOSE (FIBER 1-24 ity of THERAPY 17:49: [facility]) Medical Branch DOCUSATE Yes Take by Univer s SODIUM 1-24 mouth. ity of (COLACE 17:49: [place] ORAL) Medical Branch vitamin C Yes 1000mg Take 1,000 Univers with derrell 1-24 mg by ity of hips 1,000 17:49: mouth [place] mg tablet 09 daily. Medical Branch CRANBERRY Yes Take by Unive rs FRUIT 1-24 mouth ity of EXTRACT 17:49: daily. [place] (CRANBERRY 09 Medical ORAL) [place] MULTIVIT Yes Take by Univer s &MINERALS/F 1-24 mouth. ity of ERROUS FUM 17:49: [place] (MULTI 09 Medical VITAMIN Branch ORAL) METHYLCELLU Yes Univer s LOSE (FIBER 1-24 ity of THERAPY 17:49: [place] [facility] Medical Branch DOCUSATE Yes Take by Univer s SODIUM 1-24 mouth. ity of (COLACE 17:49: [place] ORAL) 09 Medical Branch vitamin C Yes 1000mg Take 1,000 Univers with derrell 1-24 mg by ity of hips 1,000 17:49: mouth [place] mg tablet 09 daily. Medical Branch CRANBERRY Yes Take by Unive rs FRUIT 1-24 mouth ity of EXTRACT 17:49: daily. [place] (CRANBERRY 09 Medical ORAL) [place] MULTIVIT Yes Take by Univer s &MINERALS/F 1-24 mouth. ity of ERROUS FUM 17:49: [place] ([facility] 09 Medical VITAMIN Branch ORAL) METHYLCELLU Yes Univer s LOSE (FIBER 1-24 ity of THERAPY 17:49: [facility]) [address] [place] [address] Branch DOCUSATE Yes Take by Univer s SODIUM 1-24 mouth. ity of (COLACE 17:49: [place] ORAL) Medical Branch vitamin C Yes 1000mg Take 1,000 Univers with derrell 1-24 mg by ity of hips 1,000 17:49: mouth [place] mg tablet 09 daily. Medical Branch CRANBERRY Yes Take by Unive rs FRUIT 1-24 mouth ity of EXTRACT 17:49: daily. [place] (CRANBERRY 09 Medical ORAL) [place] MULTIVIT Yes Take by Univer s &MINERALS/F 1-24 mouth. ity of ERROUS FUM 17:49: [place] (MULTI 09 Medical VITAMIN Branch ORAL) METHYLCELLU Yes Univer s LOSE (FIBER 1-24 ity of THERAPY 17:49: [facility]) 09 Medical Branch DOCUSATE Yes Take by Univer s SODIUM 1-24 mouth. ity of (COLACE 17:49: [place] ORAL) Medical Branch vitamin C Yes 1000mg Take 1,000 Univers with derrell 1-24 mg by ity of hips 1,000 17:49: mouth [place] mg tablet 09 daily. Medical Branch CRANBERRY Yes Take by Unive rs FRUIT 1-24 mouth ity of EXTRACT 17:49: daily. [place] (CRANBERRY 09 Medical ORAL) Branch MULTIVIT Yes Take by Univer s &MINERALS/F 1-24 mouth. ity of ERROUS FUM 17:49: [place] (MULTI 09 Medical VITAMIN Branch ORAL) METHYLCELLU [...] 1-24 mouth ity of EXTRACT 17:49: daily. [place] (CRANBERRY 09 Medical ORAL) Branch MULTIVIT Yes Take by Univer s &MINERALS/F 1-24 mouth. ity of ERROUS FUM 17:49: [place] ([facility] 09 Medical VITAMIN Branch ORAL) METHYLCELLU Yes [...] 1-24 mouth ity of EXTRACT 17:49: daily. [place] (CRANBERRY 09 Medical ORAL) Branch MULTIVIT Yes [...] 1-24 mouth ity of EXTRACT 17:49: daily. [place] (CRANBERRY 09 Medical ORAL) Branch MULTIVIT Yes Take by Univer s &MINERALS/F 1-24 mouth. ity of ERROUS FUM 17:49: [place] (MULTI 09 Medical VITAMIN Branch ORAL) METHYLCELLU Yes Univer s LOSE (FIBER 1-24 ity of THERAPY 17:49: [facility]) 09 Medical Branch DOCUSATE Yes Take by Univer s SODIUM 1-24 mouth. ity of (COLACE 17:49: [place] ORAL) 09 Medical Branch vitamin C Yes 1000mg Take 1,000 Univers with derrell 1-24 mg by ity of hips 1,000 17:49: mouth [place] mg tablet 09 daily. Medical Branch CRANBERRY Yes Take by Unive rs FRUIT 1-24 mouth ity of EXTRACT 17:49: daily. [place] (CRANBERRY 09 Medical ORAL) Branch MULTIVIT Yes Take by Univer s &MINERALS/F 1-24 mouth. ity of ERROUS FUM 17:49: [place] (MULTI 09 Medical VITAMIN Branch ORAL) METHYLCELLU Yes Univer s LOSE (FIBER 1-24 ity of THERAPY 17:49: [facility]) 09 Medical Branch DOCUSATE Yes Take by Univer s SODIUM 1-24 mouth. ity of (COLACE 17:49: [place] ORAL) 09 Medical Branch vitamin C Yes 1000mg Take 1,000 Univers with derrell 1-24 mg by ity of hips 1,000 17:49: mouth [place] mg tablet 09 daily. Medical Branch CRANBERRY Yes Take by Unive rs FRUIT 1-24 mouth ity of EXTRACT 17:49: daily. [place] (CRANBERRY Medical ORAL) Branch MULTIVIT Yes Take by Univer s &MINERALS/F 1-24 mouth. ity of ERROUS FUM 17:49: [place] (MULTI Medical VITAMIN Branch ORAL) METHYLCELLU Yes Univer s LOSE (FIBER 1-24 ity of THERAPY 17:49: [place] MISC) [facility] Branch DOCUSATE Yes Take by Univer s SODIUM -24 mouth. ity of (COLACE 17:49: [place] ORAL) [facility] vitamin C Yes 1000mg Take 1,000 Univers with derrell 1-24 mg by ity of hips 1,000 17:49: mouth [place] mg tablet 09 daily. [facility] Branch CRANBERRY Yes Take by [facility] [place] [facility] FRUIT -24 mouth ity of EXTRACT 17:49: daily. [place] (CRANBERRY Medical ORAL) [place] polyethylen Yes 17g 17 g, Unive rs e glycol -24 Oral, BID, ity o f 3350 powder 16:45: First dose [place] 17 g 00 on [facility] 10/19/22 at Branch 1045, Until Discontinu ed, Routine pantoprazol 0 Yes 40mg 40 mg, Univ ers e 1-24 Oral, BID, ity of (PROTONIX) 16:15: First dose [place] 2 mg/mL 00 on [facility] oral 10/19/22 at [place] suspension 1015, 40 mg Until Discontinu ed, Routine montelukast 0 Yes 10mg 10 mg, Univ ers (SINGULAIR) 24 Oral, ity of tablet 10 15:00: DAILY, [place] mg 00 First dose Medical on [facility] 10/19/22 at 0900, Until Discontinu ed, Routine citalopram 0 Yes 40mg 40 mg, Unive rs (CELEXA) 1-24 Oral, ity of tablet 40 15:00: DAILY, [place] mg 00 First dose Medical on [facility] 10/19/22 at 0900, Until Discontinu ed, Routine losartan 2022-0 Yes 50mg 50 mg, Univers (COZAAR) 1-24 Oral, BID, ity o f tablet 50 14:00: First dose [place] mg 00 on [facility] 10/19/22 at Branch 0800, Until Discontinu ed, Routine fluticasone 2023-0 Yes 2{puff} 2 Puff, Univers propionate 24 Inhalation ity of (FLOVENT) 14:00: , Q12H, [place] 110 00 First dose Medical mcg/actuati on [facility] on inhaler 10/19/22 at 2 Puff 0800, Until Discontinu ed, Routine
Is this order for a patient with suspected or confirmed COVID-19 infection? No
Does this order have Pulmonary/ Critical Care approval? No busPIRone 2022-0 Yes 20mg 20 mg, Univer s (BUSPAR) 10-19 Oral, BID, ity o f tablet 20 14:00: First dose [place] mg 00 on [facility] 10/19/22 at Branch 0800, Until Discontinu ed, Routine FOLIC ACID 2022-0 3- No Take by Uni vers ORAL 10-19 mouth ity of 13:15: 00:00 daily. [place] 59 :00 [facility] Branch cholecalcif 2022-0 2022- No 1000U Take 1,000 Univers edmar, 10-19 Units by ity of vitamin D3, 13:15: 00:00 [place] 25 mcg 59 :00 daily. Medical (1,000 Branch unit) tablet CALCIUM 2022-0 2022- No Take by Univer s ORAL 10-19 mouth ity of 13:15: 00:00 daily. [place] 59 :00 Medical Branch DOCOSAHEXAN 2022-0 2022- No 1000mg Take 1,000 Univers OIC 10-19 mg by ity of ACID/EPA 13:15: 00:00 mouth [place] (FISH OIL 59 :00 daily. Medical ORAL) Branch BIOTIN ORAL 2022-0 2022- No Take by Un jerrod 10-19 mouth. ity of 13:15: 00:00 [place] 59 :00 Medical Branch FOLIC ACID 2022-0 2022- No Take by Uni vers ORAL 10-19 mouth ity of 13:15: 00:00 daily. [place] 59 :00 [facility] Branch cholecalcif 3-0 3- No 1000U Take 1,000 Univers edmar, 10-19 Units by ity of vitamin D3, 13:15: 00:00 [place] 25 mcg 59 :00 daily. Medical (1,000 Branch unit) tablet CALCIUM 2023-0 2023- No Take by [employer] ORAL 10-19 mouth ity of 13:15: 00:00 daily. [place] 59 :00 Medical Branch DOCOSAHEXAN 2023-0 2023- No 1000mg Take 1,000 Univers OIC 10-19-24 mg by ity of ACID/EPA 13:15: 00:00 [...] Medical (1,000 Branch unit) tablet CALCIUM 3-0 2023- No Take by [employer] ORAL 10-19 mouth ity of 13:15: 00:00 [...] Medical (1,000 Branch unit) tablet CALCIUM 2023-0 2022- No Take by [facility] s ORAL 10-19 mouth ity of 13:15: 00:00 daily. [place] 59 :00 Medical Branch DOCOSAHEXAN 0 2022- No 1000mg Take 1,000 Univers OIC 10-19 mg by ity of ACID/EPA 13:15: 00:00 mouth [place] (FISH OIL 59 :00 daily. Medical ORAL) Branch BIOTIN ORAL 2022-0 2022- No Take by Un jerrod 10-19 mouth. ity of 13:15: 00:00 [place] 59 :00 Medical Branch FOLIC ACID 2022- No Take by Uni vers ORAL 10-19 mouth ity of 13:15: 00:00 daily. [place] 59 :00 Medical Branch cholecalcif 2022- No 1000U Take 1,000 Univers edmar, 10-19 Units by ity of vitamin D3, 13:15: 00:00 mouth [place] 25 mcg 59 :00 daily. Medical (1,000 Branch unit) tablet CALCIUM 2022- No Take by [facility] s ORAL 10-19 mouth ity of 13:15: 00:00 daily. [place] 59 :00 Medical Branch DOCOSAHEXAN 0 2022- No 1000mg Take 1,000 Univers OIC 10-19 mg by ity of ACID/EPA 13:15: 00:00 mouth [place] (FISH OIL 59 :00 daily. Medical ORAL) Branch BIOTIN ORAL 2022-0 2022- No Take by Un jerrod 10-19 mouth. ity of 13:15: 00:00 [place] 59 :00 Medical Branch levothyroxi 0 Yes 50ug 50 mcg, Uni vers ne 10-19 Oral, ity of (SYNTHROID) 12:00: QAM-0600, [place] tablet 50 00 First dose Medi cipriano mcg on Tue Branch 10/19/22 at 0600, Until Discontinu ed, Routine NaCl 0.9% 2022- No 500mL at 999 [facility] [place] ers (NS) bolus 10-19 mL/hr, 500 it y of infusion 10:14: 12:01 mL, IV [place] 500 mL 00 :20 Piggyback, Medical ONCE, 1 Branch dose, On Tue10/19/22 at 0415, SABRINA traMADoL 2022-0 2022- No 50mg 50 mg, Univer s (ULTRAM) 10-19 Oral, ONCE ity of tablet 50 09:45: 10:14 NOW, 1 [place] mg 00 :00 dose, On [facility] 10/19/22 at 0345, Routine diltiazem 0 Yes 120mg 120 mg, Univ ers XR 10-19 Oral, BID, ity of (DILT-XR) 05:15: First dose [place] capsule 120 00 (after Medica l mg last Branch modificati on) on [facility] 10/18/22 at 2315, Until Discontinu ed traMADoL 2022- No 50mg 50 mg, Univer s (ULTRAM) 10-19 Oral, ONCE ity of tablet 50 05:15: 04:44 NOW, 1 [place] mg 00 :00 dose, On [facility] 10/18/22 at 2315, Routine acetaminoph Yes 650mg 650 mg, Un jerrod en 10-19 Oral, Q6H ity of (TYLENOL) 05:00: ABX, First [place] tablet 650 00 dose on Medica l mg [facility] 10/18/22 at 2300, Until Discontinu ed, [...] mL 00 :06 First dose Medical on [facility] 10/18/22 at 2215, Until Discontinu ed, Routine sucralfate 2022-0 Yes 1g 1 g, Oral, U nivers (CARAFATE) 10-19 AC+HS, ity of tablet 1 g 03:45: First dose [place] 00 on [facility] 10/18/22 at Branch 2145, Until Discontinu ed, Routine famotidine 2022-0 Yes 20mg 20 mg, Unive rs (PEPCID AC) 10-19 Oral, BID, it y of tablet 20 03:45: First dose [place] mg 00 on [facility] 10/18/22 at Branch 2145, Until Discontinu ed, Routine simethicone 2022-0 Yes 80mg 80 mg, Univ ers (GAS RELIEF 10-19 Oral, ity of (SIMETHICON 03:45: PC+HS[place] E[place] 00 First dose Medical chewable on [facility] tablet 80 10/18/22 at mg 2145, Until Discontinu ed, Routine sennosides- 2022-0 Yes 1{tbl} 1 tablet, [facility] docusate 10-19 Oral, ity of sodium 03:45: DAILY, [place] (SENOKOT-S) 00 First dose Me dical 8.6-50 mg on [facility] per tablet 10/18/22 at 1 tablet 2144, Until Discontinu ed, Routine psyllium 2022-0 202- No 1{packe 1 Packet, [facility] husk 10-19 t} Oral, ity of (METAMUCIL 03:45: 16:39 DAILY, [place] (SUGAR 00 :06 First dose Medical FREE)) 3.4 on [facility] gram oral 10/18/22 at powder 2145, packet 1 Until Packet Discontinu ed, Routine dicyclomine 2022-0 3- No 20mg 20 mg, Uni vers (BENTYL) 10-19 Oral, QID, ity of tablet 20 03:45: 16:38 First dose [place] mg 00 :09 on [facility] 10/18/22 at Branch 2145, Until Discontinu ed, Routine ondansetron 2022-0 Yes 4mg 4 mg, Unive rs (ZOFRAN-ODT 10-19 Oral, Q8H ity of ) 03:33: ABX, First [place] disintegrat 00 dose on Medic al ing tablet [facility] 4 mg 10/18/22 at 2145, Until [...] Wheezing, Shortness of Breath polyethylen 2022-0 Yes [id number] 17g Take 1 Univers e glycol 1-24 Packet by ity of 3350 17 00:00: mouth in [place] gram powder 00 the Medical morning Branch and 1 Packet in the evening. lactulose 2022-0 Yes [id number] 30mL Take 30 mL Univers 10 gram/15 1-24 by mouth ity o f mL solution 00:00: [place] morning Medical and 30 mL Branch in the evening. ondansetron 2022-0 Yes [id number] 4mg Take 1 [facility] 4 mg 1-24 tablet by ity of disintegrat 00:00: mouth [place] ing tablet 00 every 8 Medica l (eight) Branch hours as needed for Nausea and Vomiting (N/V). sucralfate 2022-0 Yes [id number] 1g Take 1 [facility] 1 gram 1-24 tablet by ity of tablet 00:00: mouth [place] 00 before Medical meals and Branch at bedtime. pantoprazol 2022-0 Yes [id number] 40mg Take 1 Univers e 40 mg EC 1-24 tablet by ity of tablet 00:00: mouth in [place] 00 the Medical morning Branch and 1 tablet in the evening. SUMAtriptan 2022-0 Yes [id number] 50mg Take 1 [facility] 50 mg 1-24 tablet by ity of tablet 00:00: mouth as [place] 00 needed for Medical Migraine. Branch May repeat dose after >=2 hours, max dose 200mg in 24 hours. polyethylen 2022-0 Yes [id number] 17g Take 1 Univers e glycol 1-24 Packet by ity of 3350 17 00:00: mouth in [place] gram powder 00 the Medical morning Branch and 1 Packet in the evening. lactulose 2022-0 Yes [id number] 30mL Take 30 mL Univers 10 gram/15 1-24 by mouth ity o f mL solution 00:00: in the [facility] morning Medical and 30 mL Branch in the evening. ondansetron 3-0 Yes [id number] 4mg Take 1 [facility] 4 mg 1-24 tablet by ity of disintegrat 00:00: mouth [place] ing tablet 00 every 8 Medica l (eight) Branch hours as needed for Nausea and Vomiting (N/V). sucralfate 2023-0 Yes [id number] 1g Take 1 Univers 1 gram 1-24 tablet by ity of tablet 00:00: mouth [place] 00 before Medical meals and Branch at bedtime. pantoprazol 2023-0 Yes [id number] 40mg Take 1 Univers e 40 mg EC 1-24 tablet by ity of tablet 00:00: mouth in [place] the Medical morning Branch and 1 tablet in the evening. SUMAtriptan 3-0 Yes [id number] 50mg Take 1 [facility] 50 mg 1-24 tablet by ity of tablet 00:00: mouth as [place] [address] needed for Medical Migraine. Branch May repeat dose after >=2 hours, max dose 200mg in 24 hours. polyethylen 3-0 Yes [id number] 17g Take 1 Univers e glycol 1-24 Packet by ity of 3350 17 00:00: mouth in [place] gram powder 00 the Medical morning Branch and 1 Packet in the evening. lactulose 3-0 Yes [id number] 30mL Take 30 mL Univers 10 gram/15 1-24 by mouth ity o f mL solution 00:00: in the [facility] morning Medical and 30 mL Branch in the evening. ondansetron 3-0 Yes [id number] 4mg Take 1 Univers 4 mg 1-24 tablet by ity of disintegrat 00:00: mouth [place] ing tablet 00 every 8 Medica l (eight) Branch hours as needed for Nausea and Vomiting (N/V). sucralfate 2023-0 Yes [id number] 1g Take 1 Univers 1 gram 1-24 tablet by ity of tablet 00:00: mouth [place] 00 before Medical meals and Branch at bedtime. pantoprazol 2023-0 Yes [id number] 40mg Take 1 Univers e 40 mg EC 1-24 tablet by ity of tablet 00:00: mouth in [place] 00 the Medical morning Branch and 1 tablet in the evening. SUMAtriptan 2023-0 Yes [id number] 50mg Take 1 [facility] 50 mg 1-24 tablet by ity of tablet 00:00: mouth as 00 needed for Medical Migraine. Branch May repeat dose after >=2 hours, max dose 200mg in 24 hours. polyethylen 2023-0 Yes [id number] 17g Take 1 Univers e glycol 1-24 Packet by ity of 3350 17 00:00: mouth in [place] gram powder 00 the Medical morning Branch and 1 Packet in the evening. lactulose 2023-0 Yes [id number] 30mL Take 30 mL Univers 10 gram/15 1-24 by mouth ity o f mL solution 00:00: in the morning Medical and 30 mL Branch in the evening. ondansetron 3-0 Yes [id number] 4mg Take 1 [facility] 4 mg 1-24 tablet by ity of disintegrat 00:00: mouth [place] ing tablet 00 every 8 Medica l (eight) Branch hours as needed for Nausea and Vomiting (N/V). sucralfate 3-0 Yes [id number] 1g Take 1 Univers 1 gram 1-24 tablet by ity of tablet 00:00: mouth 00 before Medical meals and Branch at bedtime. pantoprazol 3-0 Yes [id number] 40mg Take 1 Univers e 40 mg EC 1-24 tablet by ity of tablet 00:00: mouth in [place] 00 the Medical morning Branch and 1 tablet in the evening. SUMAtriptan 3-0 Yes [id number] 50mg Take 1 [facility] 50 mg 1-24 tablet by ity of tablet 00:00: mouth [place] 00 needed for Medical Migraine. Branch May repeat dose after >=2 hours, max dose 200mg in 24 hours. polyethylen 2023-0 Yes [id number] 17g Take 1 Univers e glycol 1-24 Packet by ity of 3350 17 00:00: mouth in [place] gram powder 00 the Medical morning Branch and 1 Packet in the evening. lactulose 2023-0 Yes [id number] 30mL Take 30 mL Univers 10 gram/15 1-24 by mouth ity o f mL solution 00:00: in the [facility] morning Medical and 30 mL Branch in the evening. ondansetron 3-0 Yes [id number] 4mg Take 1 [facility] 4 mg 1-24 tablet by ity of disintegrat 00:00: mouth [place] ing tablet 00 every 8 Medica l (eight) Branch hours as needed for Nausea and Vomiting (N/V). sucralfate 2023-0 Yes [id number] 1g Take 1 Univers 1 gram 1-24 tablet by ity of tablet 00:00: mouth [place] 00 before Medical meals and Branch at bedtime. pantoprazol 2023-0 Yes [id number] 40mg Take 1 Univers e 40 mg EC 1-24 tablet by ity of tablet 00:00: mouth in [place] 00 the Medical morning Branch and 1 tablet in the evening. SUMAtriptan 3-0 Yes [id number] 50mg Take 1 [facility] 50 mg 1-24 tablet by ity of tablet 00:00: mouth [place] 00 needed for Medical Migraine. Branch May repeat dose after >=2 hours, max dose 200mg in 24 hours. polyethylen 3-0 Yes [id number] 17g Take 1 Univers e glycol 1-24 Packet by ity of 3350 17 00:00: mouth in [place] gram powder 00 the Medical morning Branch and 1 Packet in the evening. lactulose 2022-0 Yes [id number] 30mL Take 30 mL Univers 10 gram/15 1-24 by mouth ity o f mL solution 00:00: in the [facility] morning Medical and 30 mL Branch in the evening. ondansetron 3-0 Yes [id number] 4mg Take 1 Univers 4 mg 1-24 tablet by ity of disintegrat 00:00: mouth [place] ing tablet 00 every 8 Medica l (eight) Branch hours as needed for Nausea and Vomiting (N/V). sucralfate 3-0 Yes [id number] 1g Take 1 Univers 1 gram 1-24 tablet by ity of tablet 00:00: mouth [place] 00 before Medical meals and Branch at bedtime. pantoprazol 2023-0 Yes [id number] 40mg Take 1 Univers e 40 mg EC 1-24 tablet by ity of tablet 00:00: mouth in [place] 00 the Medical morning Branch and 1 tablet in the evening. SUMAtriptan 3-0 Yes [id number] 50mg Take 1 [facility] 50 mg 1-24 tablet by ity of tablet 00:00: mouth as [place] 00 needed for Medical Migraine. Branch May repeat dose after >=2 hours, max dose 200mg in 24 hours. polyethylen 2023-0 Yes [id number] 17g Take 1 Univers e glycol 1-24 Packet by ity of 3350 17 00:00: mouth in [place] gram powder 00 the Medical morning Branch and 1 Packet in the evening. lactulose 3-0 Yes [id number] 30mL Take 30 mL Univers 10 gram/15 1-24 by mouth ity o f mL solution 00:00: in the morning Medical and 30 mL Branch in the evening. ondansetron 3-0 Yes [id number] 4mg Take 1 [facility] 4 mg 1-24 tablet by ity of disintegrat 00:00: mouth [place] ing tablet 00 every 8 Medica l (eight) Branch hours as needed for Nausea and Vomiting (N/V). sucralfate 3-0 Yes [id number] 1g Take 1 Univers 1 gram 1-24 tablet by ity of tablet 00:00: mouth [place] 00 before Medical meals and Branch at bedtime. pantoprazol 3-0 Yes [id number] 40mg Take 1 Univers e 40 mg EC 1-24 tablet by ity of tablet 00:00: mouth in [place] 00 the Medical morning Branch and 1 tablet in the evening. SUMAtriptan 2022-0 Yes [id number] 50mg Take 1 [facility] 50 mg 1-24 tablet by ity of tablet 00:00: mouth [place] 00 needed for Medical Migraine. Branch May repeat dose after >=2 hours, max dose 200mg in 24 hours. polyethylen 3-0 Yes [id number] 17g Take 1 Univers e glycol 1-24 Packet by ity of 3350 17 00:00: mouth in [place] gram powder 00 the Medical morning Branch and 1 Packet in the evening. lactulose 3-0 Yes [id number] 30mL Take 30 mL Univers 10 gram/15 1-24 by mouth ity o f mL solution 00:00: in the morning Medical and 30 mL Branch in the evening. ondansetron 3-0 Yes [id number] 4mg Take 1 Univers 4 mg 1-24 tablet by ity of disintegrat 00:00: mouth [place] ing tablet 00 every 8 Medica l (eight) Branch hours as needed for Nausea and Vomiting (N/V). sucralfate 2023-0 Yes [id number] 1g Take 1 Univers 1 gram 1-24 tablet by ity of tablet 00:00: mouth [place] 00 before Medical meals and Branch at bedtime. pantoprazol 2023-0 Yes [id number] 40mg Take 1 Univers e 40 mg EC 1-24 tablet by ity of tablet 00:00: mouth in [place] 00 the Medical morning Branch and 1 tablet in the evening. SUMAtriptan 3-0 Yes [id number] 50mg Take 1 [facility] 50 mg 1-24 tablet by ity of tablet 00:00: mouth as [place] 00 needed for Medical Migraine. Branch May repeat dose after >=2 hours, max dose 200mg in 24 hours. polyethylen 2023-0 Yes [id number] 17g Take 1 Univers e glycol 1-24 Packet by ity of 3350 17 00:00: mouth in [place] gram powder 00 the Medical morning Branch and 1 Packet in the evening. lactulose 3-0 Yes [id number] 30mL Take 30 mL Univers 10 gram/15 1-24 by mouth ity o f mL solution 00:00: in the [facility] 00 morning Medical and 30 mL Branch in the evening. ondansetron 3-0 Yes [id number] 4mg Take 1 [facility] 4 mg 1-24 tablet by ity of disintegrat 00:00: mouth [place] ing tablet 00 every 8 Medica l (eight) Branch hours as needed for Nausea and Vomiting (N/V). sucralfate 3-0 Yes [id number] 1g Take 1 Univers 1 gram 1-24 tablet by ity of tablet 00:00: mouth [place] 00 before Medical meals and Branch at bedtime. pantoprazol 3-0 Yes [id number] 40mg Take 1 Univers e 40 mg EC 1-24 tablet by ity of tablet 00:00: mouth in [place] 00 the Medical morning Branch and 1 tablet in the evening. SUMAtriptan 3-0 Yes [id number] 50mg Take 1 [facility] 50 mg 1-24 tablet by ity of tablet 00:00: mouth as [place] 00 needed for Medical Migraine. Branch May repeat dose after >=2 hours, max dose 200mg in 24 hours. polyethylen 3-0 Yes [id number] 17g Take 1 Univers e glycol 1-24 Packet by ity of 3350 17 00:00: mouth in [place] gram powder 00 the Medical morning Branch and 1 Packet in the evening. lactulose 2023-0 Yes [id number] 30mL Take 30 mL Univers 10 gram/15 1-24 by mouth ity o f mL solution 00:00: in the [facility] morning Medical and 30 mL Branch in the evening. ondansetron 3-0 Yes [id number] 4mg Take 1 Univers 4 mg 1-24 tablet by ity of disintegrat 00:00: mouth [place] ing tablet 00 every 8 Medica l (eight) Branch hours as needed for Nausea and Vomiting (N/V). sucralfate 2023-0 Yes [id number] 1g Take 1 Univers 1 gram 1-24 tablet by ity of tablet 00:00: mouth [place] 00 before Medical meals and Branch at bedtime. pantoprazol 2023-0 Yes [id number] 40mg Take 1 Univers e 40 mg EC 1-24 tablet by ity of tablet 00:00: mouth in [place] 00 the Medical morning Branch and 1 tablet in the evening. SUMAtriptan 3-0 Yes [id number] 50mg Take 1 [facility] 50 mg 1-24 tablet by ity of tablet 00:00: mouth as [place] 00 needed for Medical Migraine. Branch May repeat dose after >=2 hours, max dose 200mg in 24 hours. polyethylen 3-0 Yes [id number] 17g Take 1 Univers e glycol 1-24 Packet by ity of 3350 17 00:00: mouth in [place] gram powder 00 the Medical morning Branch and 1 Packet in the evening. lactulose 3-0 Yes [id number] 30mL Take 30 mL Univers 10 gram/15 1-24 by mouth ity o f mL solution 00:00: in the [facility] morning Medical and 30 mL Branch in the evening. ondansetron 3-0 Yes [id number] 4mg Take 1 Univers 4 mg 1-24 tablet by ity of disintegrat 00:00: mouth [place] ing tablet 00 every 8 Medica l (eight) Branch hours as needed for Nausea and Vomiting (N/V). sucralfate 2023-0 Yes [id number] 1g Take 1 Univers 1 gram 1-24 tablet by ity of tablet 00:00: mouth [place] 00 before Medical meals and Branch at bedtime. pantoprazol 2023-0 Yes [id number] 40mg Take 1 Univers e 40 mg EC 1-24 tablet by ity of tablet 00:00: mouth in [place] 00 the Medical morning Branch and 1 tablet in the evening. SUMAtriptan 2023-0 Yes [id number] 50mg Take 1 [facility] 50 mg 1-24 tablet by ity of tablet 00:00: mouth as 00 needed for Medical Migraine. Branch May repeat dose after >=2 hours, max dose 200mg in 24 hours. polyethylen 2023-0 Yes [id number] 17g Take 1 Univers e glycol 1-24 Packet by ity of 3350 17 00:00: mouth in [place] gram powder 00 the Medical morning Branch and 1 Packet in the evening. lactulose 2023-0 Yes [id number] 30mL Take 30 mL Univers 10 gram/15 1-24 by mouth ity o f mL solution 00:00: in the morning Medical and 30 mL Branch in the evening. ondansetron 3-0 Yes [id number] 4mg Take 1 [facility] 4 mg 1-24 tablet by ity of disintegrat 00:00: mouth [place] ing tablet 00 every 8 Medica l (eight) Branch hours as needed for Nausea and Vomiting (N/V). sucralfate 3-0 Yes [id number] 1g Take 1 [facility] 1 gram 1-24 tablet by ity of tablet 00:00: mouth 00 before Medical meals and Branch at bedtime. pantoprazol 2023-0 Yes [id number] 40mg Take 1 Univers e 40 mg EC 1-24 tablet by ity of tablet 00:00: mouth in [place] 00 the Medical morning Branch and 1 tablet in the evening. SUMAtriptan 3-0 Yes [id number] 50mg Take 1 [facility] 50 mg 1-24 tablet by ity of tablet 00:00: mouth as 00 needed for Medical Migraine. Branch May repeat dose after >=2 hours, max dose 200mg in 24 hours. polyethylen 2023-0 Yes [id number] 17g Take 1 Univers e glycol 1-24 Packet by ity of 3350 17 00:00: mouth in [place] gram powder 00 the Medical morning Branch and 1 Packet in the evening. lactulose 2023-0 Yes [id number] 30mL Take 30 mL Univers 10 gram/15 1-24 by mouth ity o f mL solution 00:00: in the morning Medical and 30 mL Branch in the evening. ondansetron 2023-0 Yes [id number] 4mg Take 1 [facility] 4 mg 1-24 tablet by ity of disintegrat 00:00: mouth [place] ing tablet 00 every 8 Medica l (eight) Branch hours as needed for Nausea and Vomiting (N/V). sucralfate 2023-0 Yes [id number] 1g Take 1 [facility] 1 gram 1-24 tablet by ity of tablet 00:00: mouth [place] 00 before Medical meals and Branch at bedtime. pantoprazol 2023-0 Yes [id number] 40mg Take 1 Univers e 40 mg EC 1-24 tablet by ity of tablet 00:00: mouth in [place] 00 the Medical morning Branch and 1 tablet in the evening. SUMAtriptan 3-0 Yes [id number] 50mg Take 1 [facility] 50 mg 1-24 tablet by ity of tablet 00:00: mouth as [place] 00 needed for Medical Migraine. Branch May repeat dose after >=2 hours, max dose 200mg in 24 hours. polyethylen 3-0 Yes [id number] 17g Take 1 Univers e glycol 1-24 Packet by ity of 3350 17 00:00: mouth in [place] gram powder 00 the Medical morning Branch and 1 Packet in the evening. lactulose 2022-0 Yes [id number] 30mL Take 30 mL [facility] 10 gram/15 1-24 by mouth ity o f mL solution 00:00: in the [facility] morning Medical and 30 mL Branch in the evening. ondansetron 2022-0 Yes [id number] 4mg Take 1 [facility] 4 mg 1-24 tablet by ity of disintegrat 00:00: mouth [place] ing tablet 00 every 8 Medica l (eight) Branch hours as needed for Nausea and Vomiting (N/V). sucralfate 3-0 Yes [id number] 1g Take 1 [facility] 1 gram 1-24 tablet by ity of tablet 00:00: mouth [place] 00 before Medical meals and Branch at bedtime. pantoprazol 3-0 Yes [id number] 40mg Take 1 Univers e 40 mg EC 1-24 tablet by ity of tablet 00:00: mouth in [place] 00 the Medical morning Branch and 1 tablet in the evening. SUMAtriptan 3-0 Yes [id number] 50mg Take 1 [facility] 50 mg 1-24 tablet by ity of tablet 00:00: mouth as [place] 00 needed for Medical Migraine. Branch May repeat dose after >=2 hours, max dose 200mg in 24 hours. polyethylen 2023-0 Yes [id number] 17g Take 1 Univers e glycol 1-24 Packet by ity of 3350 17 00:00: mouth in [place] gram powder 00 the Medical morning Branch and 1 Packet in the evening. lactulose 2023-0 Yes [id number] 30mL Take 30 mL [facility] 10 gram/15 1-24 by mouth ity o f mL solution 00:00: in the morning Medical and 30 mL Branch in the evening. ondansetron 2023-0 Yes [id number] 4mg Take 1 [facility] 4 mg 1-24 tablet by ity of disintegrat 00:00: mouth [place] ing tablet 00 every 8 Medica l (eight) Branch hours as needed for Nausea and Vomiting (N/V). sucralfate 2023-0 Yes [id number] 1g Take 1 [facility] 1 gram 1-24 tablet by ity of tablet 00:00: mouth [place] 00 before Medical meals and Branch at bedtime. pantoprazol 3-0 Yes [id number] 40mg Take 1 [facility] e 40 mg EC 1-24 tablet by ity of tablet 00:00: mouth in [place] 00 the Medical morning Branch and 1 tablet in the evening. SUMAtriptan 2022-0 Yes [id number] 50mg Take 1 [facility] 50 mg 1-24 tablet by ity of tablet 00:00: mouth as 00 needed for Medical Migraine. Branch May repeat dose after >=2 hours, max dose 200mg in 24 hours. polyethylen 3-0 Yes [id number] 17g Take 1 Univers e glycol 1-24 Packet by ity of 3350 17 00:00: mouth in [place] gram powder 00 the Medical morning Branch and 1 Packet in the evening. lactulose 3-0 Yes [id number] 30mL Take 30 mL [facility] 10 gram/15 1-24 by mouth ity o f mL solution 00:00: in the morning Medical and 30 mL Branch in the evening. ondansetron 2023-0 Yes [id number] 4mg Take 1 [facility] 4 mg 1-24 tablet by ity of disintegrat 00:00: mouth [place] ing tablet 00 every 8 Medica l (eight) Branch hours as needed for Nausea and Vomiting (N/V). sucralfate 2023-0 Yes [id number] 1g Take 1 [facility] 1 gram 1-24 tablet by ity of tablet 00:00: mouth [place] 00 before Medical meals and Branch at bedtime. pantoprazol 2023-0 Yes [id number] 40mg Take 1 Univers e 40 mg EC 1-24 tablet by ity of tablet 00:00: mouth in [place] 00 the Medical morning Branch and 1 tablet in the evening. SUMAtriptan 2023-0 Yes [id number] 50mg Take 1 [facility] 50 mg 1-24 tablet by ity of tablet 00:00: mouth as [place] 00 needed for Medical Migraine. Branch May repeat dose after >=2 hours, max dose 200mg in 24 hours. polyethylen 2023-0 Yes [id number] 17g Take 1 Univers e glycol 1-24 Packet by ity of 3350 17 00:00: mouth in [place] gram powder 00 the Medical morning Branch and 1 Packet in the evening. lactulose 3-0 Yes [id number] 30mL Take 30 mL Univers 10 gram/15 1-24 by mouth ity o f mL solution 00:00: in the [facility] 00 morning Medical and 30 mL Branch in the evening. ondansetron 3-0 Yes [id number] 4mg Take 1 [facility] 4 mg 1-24 tablet by ity of disintegrat 00:00: mouth [place] ing tablet 00 every 8 Medica l (eight) Branch hours as needed for Nausea and Vomiting (N/V). sucralfate 3-0 Yes [id number] 1g Take 1 [facility] 1 gram 1-24 tablet by ity of tablet 00:00: mouth [place] 00 before Medical meals and Branch at bedtime. pantoprazol 3-0 Yes [id number] 40mg Take 1 [facility] e 40 mg EC 1-24 tablet by ity of tablet 00:00: mouth in [place] 00 the Medical morning Branch and 1 tablet in the evening. SUMAtriptan 2023-0 Yes [id number] 50mg Take 1 [facility] 50 mg 1-24 tablet by ity of tablet 00:00: mouth as [place] 00 needed for Medical Migraine. Branch May repeat dose after >=2 hours, max dose 200mg in 24 hours. polyethylen 2023-0 Yes [id number] 17g Take 1 Univers e glycol 1-24 Packet by ity of 3350 17 00:00: mouth in [place] gram powder 00 the Medical morning Branch and 1 Packet in the evening. lactulose 2023-0 Yes [id number] 30mL Take 30 mL [facility] 10 gram/15 1-24 by mouth ity o f mL solution 00:00: in the [facility] morning Medical and 30 mL Branch in the evening. ondansetron 2023-0 Yes [id number] 4mg Take 1 [facility] 4 mg 1-24 tablet by ity of disintegrat 00:00: mouth [place] ing tablet 00 every 8 Medica l (eight) Branch hours as needed for Nausea and Vomiting (N/V). sucralfate 2023-0 Yes [id number] 1g Take 1 [facility] 1 gram 1-24 tablet by ity of tablet 00:00: mouth [place] 00 before Medical meals and Branch at bedtime. pantoprazol 2023-0 Yes [id number] 40mg Take 1 Univers e 40 mg EC 1-24 tablet by ity of tablet 00:00: mouth in [place] 00 the Medical morning Branch and 1 tablet in the evening. SUMAtriptan 3-0 Yes [id number] 50mg Take 1 [facility] 50 mg 1-24 tablet by ity of tablet 00:00: mouth as [place] 00 needed for Medical Migraine. Branch May repeat dose after >=2 hours, max dose 200mg in 24 hours. polyethylen 3-0 Yes [id number] 17g Take 1 [facility] e glycol 1-24 Packet by ity of 3350 17 00:00: mouth in [place] gram powder 00 the Medical morning Branch and 1 Packet in the evening. lactulose 3-0 Yes [id number] 30mL Take 30 mL [facility] 10 gram/15 1-24 by mouth ity o f mL solution 00:00: in the [facility] morning Medical and 30 mL Branch in the evening. ondansetron 3-0 Yes [id number] 4mg Take 1 [facility] 4 mg 1-24 tablet by ity of disintegrat 00:00: mouth [place] ing tablet 00 every 8 Medica l (eight) Branch hours as needed for Nausea and Vomiting (N/V). sucralfate 2023-0 Yes [id number] 1g Take 1 [facility] 1 gram 1-24 tablet by ity of tablet 00:00: mouth [place] 00 before Medical meals and Branch at bedtime. pantoprazol 2023-0 Yes [id number] 40mg Take 1 [facility] e 40 mg EC 1-24 tablet by ity of tablet 00:00: mouth in [place] 00 the Medical morning Branch and 1 tablet in the evening. SUMAtriptan 2023-0 Yes [id number] 50mg Take 1 [facility] 50 mg 1-24 tablet by ity of tablet 00:00: mouth as 00 needed for Medical Migraine. Branch May repeat dose after >=2 hours, max dose 200mg in 24 hours. polyethylen 2023-0 Yes [id number] 17g Take 1 [facility] e glycol 1-24 Packet by ity of 3350 17 00:00: mouth in [place] gram powder 00 the Medical morning Branch and 1 Packet in the evening. lactulose 2023-0 Yes [id number] 30mL Take 30 mL [facility] 10 gram/15 1-24 by mouth ity o f mL solution 00:00: in the morning Medical and 30 mL Branch in the evening. ondansetron 3-0 Yes [id number] 4mg Take 1 [facility] 4 mg 1-24 tablet by ity of disintegrat 00:00: mouth [place] ing tablet 00 every 8 Medica l (eight) Branch hours as needed for Nausea and Vomiting (N/V). sucralfate 3-0 Yes [id number] 1g Take 1 [facility] 1 gram 1-24 tablet by ity of tablet 00:00: mouth 00 before Medical meals and Branch at bedtime. pantoprazol 3-0 Yes [id number] 40mg Take 1 [facility] e 40 mg EC 1-24 tablet by ity of tablet 00:00: mouth in [place] 00 the Medical morning Branch and 1 tablet in the evening. SUMAtriptan 3-0 Yes [id number] 50mg Take 1 [facility] 50 mg 1-24 tablet by ity of tablet 00:00: mouth as 00 needed for Medical Migraine. Branch May repeat dose after >=2 hours, max dose 200mg in 24 hours. polyethylen 2023-0 Yes [id number] 17g Take 1 [facility] e glycol 1-24 Packet by ity of 3350 17 00:00: mouth in [place] gram powder 00 the Medical morning Branch and 1 Packet in the evening. lactulose 2023-0 Yes [id number] 30mL Take 30 mL [facility] 10 gram/15 1-24 by mouth ity o f mL solution 00:00: in the morning Medical and 30 mL Branch in the evening. ondansetron 2023-0 Yes [id number] 4mg Take 1 [facility] 4 mg 1-24 tablet by ity of disintegrat 00:00: mouth [place] ing tablet 00 every 8 Medica l (eight) Branch hours as needed for Nausea and Vomiting (N/V). sucralfate 2023-0 Yes [id number] 1g Take 1 [facility] 1 gram 1-24 tablet by ity of tablet 00:00: mouth [place] 00 before Medical meals and Branch at bedtime. pantoprazol 2023-0 Yes [id number] 40mg Take 1 [facility] e 40 mg EC 1-24 tablet by ity of tablet 00:00: mouth in [place] 00 the Medical morning Branch and 1 tablet in the evening. SUMAtriptan 3-0 Yes [id number] 50mg Take 1 [facility] 50 mg 1-24 tablet by ity of tablet 00:00: mouth as [place] 00 needed for Medical Migraine. Branch May repeat dose after >=2 hours, max dose 200mg in 24 hours. polyethylen 3-0 Yes [id number] 17g Take 1 [facility] e glycol 1-24 Packet by ity of 3350 17 00:00: mouth in [place] gram powder 00 the Medical morning Branch and 1 Packet in the evening. lactulose 2022-0 Yes [id number] 30mL Take 30 mL [facility] 10 gram/15 1-24 by mouth ity o f mL solution 00:00: in the [facility] s 00 morning Medical and 30 mL Branch in the evening. ondansetron 2022-0 Yes [id number] 4mg Take 1 [facility] 4 mg 1-24 tablet by ity of disintegrat 00:00: mouth [place] ing tablet 00 every 8 Medica l (eight) Branch hours as needed for Nausea and Vomiting (N/V). sucralfate 3-0 Yes [id number] 1g Take 1 [facility] 1 gram 1-24 tablet by ity of tablet 00:00: mouth [place] 00 before Medical meals and Branch at bedtime. pantoprazol 3-0 Yes [id number] 40mg Take 1 [facility] e 40 mg EC 1-24 tablet by ity of tablet 00:00: mouth in [place] 00 the Medical morning Branch and 1 tablet in the evening. SUMAtriptan 3-0 Yes [id number] 50mg Take 1 [facility] 50 mg 1-24 tablet by ity of tablet 00:00: mouth as [place] 00 needed for Medical Migraine. Branch May repeat dose after >=2 hours, max dose 200mg in 24 hours. polyethylen 2023-0 Yes [id number] 17g Take 1 [facility] e glycol 1-24 Packet by ity of 3350 17 00:00: mouth in [place] gram powder 00 the Medical morning Branch and 1 Packet in the evening. lactulose 2023-0 Yes [id number] 30mL Take 30 mL [facility] 10 gram/15 1-24 by mouth ity o f mL solution 00:00: in the morning Medical and 30 mL Branch in the evening. ondansetron 2023-0 Yes [id number] 4mg Take 1 [facility] 4 mg 1-24 tablet by ity of disintegrat 00:00: mouth [place] ing tablet 00 every 8 Medica l (eight) Branch hours as needed for Nausea and Vomiting (N/V). sucralfate 2023-0 Yes [id number] 1g Take 1 [facility] 1 gram 1-24 tablet by ity of tablet 00:00: mouth [place] 00 before Medical meals and Branch at bedtime. pantoprazol 2023-0 Yes [id number] 40mg Take 1 [facility] e 40 mg EC 1-24 tablet by ity of tablet 00:00: mouth in [place] 00 the Medical morning Branch and 1 tablet in the evening. SUMAtriptan 3-0 Yes [id number] 50mg Take 1 [facility] 50 mg 1-24 tablet by ity of tablet 00:00: mouth as 00 needed for Medical Migraine. Branch May repeat dose after >=2 hours, max dose 200mg in 24 hours. polyethylen 2023-0 Yes [id number] 17g Take 1 [facility] e glycol 1-24 Packet by ity of 3350 17 00:00: mouth in [place] gram powder 00 the Medical morning Branch and 1 Packet in the evening. lactulose 2023-0 Yes [id number] 30mL Take 30 mL [facility] 10 gram/15 1-24 by mouth ity o f mL solution 00:00: in the morning Medical and 30 mL Branch in the evening. ondansetron 2023-0 Yes [id number] 4mg Take 1 [facility] 4 mg 1-24 tablet by ity of disintegrat 00:00: mouth [place] ing tablet 00 every 8 Medica l (eight) Branch hours as needed for Nausea and Vomiting (N/V). sucralfate 2023-0 Yes [id number] 1g Take 1 [facility] 1 gram 1-24 tablet by ity of tablet 00:00: mouth [place] 00 before Medical meals and Branch at bedtime. pantoprazol 2023-0 Yes [id number] 40mg Take 1 [facility] e 40 mg EC 1-24 tablet by ity of tablet 00:00: mouth in [place] 00 the Medical morning Branch and 1 tablet in the evening. SUMAtriptan 3-0 Yes [id number] 50mg Take 1 [facility] 50 mg 1-24 tablet by ity of tablet 00:00: mouth as [place] 00 needed for Medical Migraine. Branch May repeat dose after >=2 hours, max dose 200mg in 24 hours. polyethylen 3-0 Yes [id number] 17g Take 1 [facility] e glycol 1-24 Packet by ity of 3350 17 00:00: mouth in [place] gram powder 00 the Medical morning Branch and 1 Packet in the evening. lactulose 3-0 Yes [id number] 30mL Take 30 mL [facility] 10 gram/15 1-24 by mouth ity o f mL solution 00:00: in the [facility] 00 morning Medical and 30 mL Branch in the evening. ondansetron 2022-0 Yes [id number] 4mg Take 1 [facility] 4 mg 1-24 tablet by ity of disintegrat 00:00: mouth [place] ing tablet 00 every 8 Medica l (eight) Branch hours as needed for Nausea and Vomiting (N/V). sucralfate 2022-0 Yes [id number] 1g Take 1 [facility] 1 gram 1-24 tablet by ity of tablet 00:00: mouth [place] 00 before Medical meals and Branch at bedtime. pantoprazol 2022-0 Yes [id number] 40mg Take 1 [facility] e 40 mg EC 1-24 tablet by ity of tablet 00:00: mouth in [place] 00 the Medical morning Branch and 1 tablet in the evening. SUMAtriptan 3-0 Yes [id number] 50mg Take 1 [facility] 50 mg 1-24 tablet by ity of tablet 00:00: mouth as [place] 00 needed for Medical Migraine. Branch May repeat dose after >=2 hours, max dose 200mg in 24 hours. polyethylen 3-0 Yes [id number] 17g Take 1 [facility] e glycol 1-24 Packet by ity of 3350 17 00:00: mouth in [place] gram powder 00 the Medical morning Branch and 1 Packet in the evening. lactulose 2023-0 Yes [id number] 30mL Take 30 mL [facility] 10 gram/15 1-24 by mouth ity o f mL solution 00:00: in the [facility] morning Medical and 30 mL Branch in the evening. ondansetron 2023-0 Yes [id number] 4mg Take 1 [facility] 4 mg 1-24 tablet by ity of disintegrat 00:00: mouth [place] ing tablet 00 every 8 Medica l (eight) Branch hours as needed for Nausea and Vomiting (N/V). sucralfate 2023-0 Yes [id number] 1g Take 1 [facility] 1 gram 1-24 tablet by ity of tablet 00:00: mouth [place] 00 before Medical meals and Branch at bedtime. pantoprazol 2023-0 Yes [id number] 40mg Take 1 [facility] e 40 mg EC 1-24 tablet by ity of tablet 00:00: mouth in [place] 00 the Medical morning Branch and 1 tablet in the evening. SUMAtriptan 2023-0 Yes [id number] 50mg Take 1 [facility] 50 mg 1-24 tablet by ity of tablet 00:00: mouth as [place] [address] needed for Medical Migraine. Branch May repeat dose after >=2 hours, max dose 200mg in 24 hours. polyethylen 2023-0 Yes [id number] 17g Take 1 [facility] e glycol 1-24 Packet by ity of 3350 17 00:00: mouth in [place] gram powder 00 the Medical morning Branch and 1 Packet in the evening. lactulose 2023-0 Yes [id number] 30mL Take 30 mL [facility] 10 gram/15 1-24 by mouth ity o f mL solution 00:00: in the [facility] morning Medical and 30 mL Branch in the evening. ondansetron 3-0 Yes [id number] 4mg Take 1 [facility] 4 mg 1-24 tablet by ity of disintegrat 00:00: mouth [place] ing tablet 00 every 8 Medica l (eight) Branch hours as needed for Nausea and Vomiting (N/V). sucralfate 2023-0 Yes [id number] 1g Take 1 [facility] 1 gram 1-24 tablet by ity of tablet 00:00: mouth [place] 00 before Medical meals and Branch at bedtime. pantoprazol 2023-0 Yes [id number] 40mg Take 1 [facility] e 40 mg EC 1-24 tablet by ity of tablet 00:00: mouth in [place] 00 the Medical morning Branch and 1 tablet in the evening. SUMAtriptan 2023-0 Yes [id number] 50mg Take 1 [facility] 50 mg 1-24 tablet by ity of tablet 00:00: mouth as 00 needed for Medical Migraine. Branch May repeat dose after >=2 hours, max dose 200mg in 24 hours. polyethylen 2023-0 Yes [id number] 17g Take 1 [facility] e glycol 1-24 Packet by ity of 3350 17 00:00: mouth in [place] gram powder 00 the Medical morning Branch and 1 Packet in the evening. lactulose 2023-0 Yes [id number] 30mL Take 30 mL [facility] 10 gram/15 1-24 by mouth ity o f mL solution 00:00: in the morning Medical and 30 mL Branch in the evening. ondansetron 2023-0 Yes [id number] 4mg Take 1 [facility] 4 mg 1-24 tablet by ity of disintegrat 00:00: mouth [place] ing tablet 00 every 8 Medica l (eight) Branch hours as needed for Nausea and Vomiting (N/V). sucralfate 3-0 Yes [id number] 1g Take 1 [facility] 1 gram 1-24 tablet by ity of tablet 00:00: mouth 00 before Medical meals and Branch at bedtime. pantoprazol 2023-0 Yes [id number] 40mg Take 1 [facility] e 40 mg EC 1-24 tablet by ity of tablet 00:00: mouth in [place] 00 the Medical morning Branch and 1 tablet in the evening. SUMAtriptan 3-0 Yes [id number] 50mg Take 1 [facility] 50 mg 1-24 tablet by ity of tablet 00:00: mouth as 00 needed for Medical Migraine. Branch May repeat dose after >=2 hours, max dose 200mg in 24 hours. polyethylen 2023-0 Yes [id number] 17g Take 1 [facility] e glycol 1-24 Packet by ity of 3350 17 00:00: mouth in [place] gram powder 00 the Medical morning Branch and 1 Packet in the evening. lactulose 2023-0 Yes [id number] 30mL Take 30 mL [facility] 10 gram/15 1-24 by mouth ity o f mL solution 00:00: in the morning Medical and 30 mL Branch in the evening. ondansetron 2023-0 Yes [id number] 4mg Take 1 [facility] 4 mg 1-24 tablet by ity of disintegrat 00:00: mouth [place] ing tablet 00 every 8 Medica l (eight) Branch hours as needed for Nausea and Vomiting (N/V). sucralfate 2023-0 Yes [id number] 1g Take 1 [facility] 1 gram 1-24 tablet by ity of tablet 00:00: mouth [place] 00 before Medical meals and Branch at bedtime. pantoprazol 2023-0 Yes [id number] 40mg Take 1 [facility] e 40 mg EC 1-24 tablet by ity of tablet 00:00: mouth in [place] 00 the Medical morning Branch and 1 tablet in the evening. SUMAtriptan 2023-0 Yes [id number] 50mg Take 1 [facility] 50 mg 1-24 tablet by ity of tablet 00:00: mouth as [place] 00 needed for Medical Migraine. Branch May repeat dose after >=2 hours, max dose 200mg in 24 hours. polyethylen 2023-0 Yes [id number] 17g Take 1 [facility] e glycol 1-24 Packet by ity of 3350 17 00:00: mouth in [place] gram powder 00 the Medical morning Branch and 1 Packet in the evening. lactulose 3-0 Yes [id number] 30mL Take 30 mL [facility] 10 gram/15 1-24 by mouth ity o f mL solution 00:00: [place] morning Medical and 30 mL Branch in the evening. ondansetron 3-0 Yes [id number] 4mg Take 1 [facility] 4 mg 1-24 tablet by ity of disintegrat 00:00: mouth [place] ing tablet 00 every 8 Medica l (eight) Branch hours as needed for Nausea and Vomiting (N/V). sucralfate 3-0 Yes [id number] 1g Take 1 [facility] 1 gram 1-24 tablet by ity of tablet 00:00: mouth [place] 00 before Medical meals and Branch at bedtime. pantoprazol 2023-0 Yes [id number] 40mg Take 1 [facility] e 40 mg EC 1-24 tablet by ity of tablet 00:00: mouth in [place] 00 the Medical morning Branch and 1 tablet in the evening. SUMAtriptan 2023-0 Yes [id number] 50mg Take 1 [facility] 50 mg 1-24 tablet by ity of tablet 00:00: mouth as [place] 00 needed for Medical Migraine. Branch May repeat dose after >=2 hours, max dose 200mg in 24 hours. polyethylen 2023-0 Yes [id number] 17g Take 1 [facility] e glycol 1-24 Packet by ity of 3350 17 00:00: mouth in [place] gram powder 00 the Medical morning Branch and 1 Packet in the evening. lactulose 2023-0 Yes [id number] 30mL Take 30 mL [facility] 10 gram/15 1-24 by mouth ity o f mL solution 00:00: in the [facility] morning Medical and 30 mL Branch in the evening. ondansetron 2023-0 Yes [id number] 4mg Take 1 [facility] 4 mg 1-24 tablet by ity of disintegrat 00:00: mouth [place] ing tablet 00 every 8 Medica l (eight) Branch hours as needed for Nausea and Vomiting (N/V). sucralfate 2023-0 Yes [id number] 1g Take 1 [facility] 1 gram 1-24 tablet by ity of tablet 00:00: mouth [place] 00 before Medical meals and Branch at bedtime. pantoprazol 3-0 Yes [id number] 40mg Take 1 [facility] e 40 mg EC 1-24 tablet by ity of tablet 00:00: mouth in [place] 00 the Medical morning Branch and 1 tablet in the evening. SUMAtriptan 2022-0 Yes [id number] 50mg Take 1 [facility] 50 mg 1-24 tablet by ity of tablet 00:00: mouth as [place] 00 needed for Medical Migraine. Branch May repeat dose after >=2 hours, max dose 200mg in 24 hours. polyethylen 3-0 Yes [id number] 17g Take 1 [facility] e glycol 1-24 Packet by ity of 3350 17 00:00: mouth in [place] gram powder 00 the Medical morning Branch and 1 Packet in the evening. lactulose 3-0 Yes [id number] 30mL Take 30 mL [facility] 10 gram/15 1-24 by mouth ity o f mL solution 00:00: in the [facility] morning Medical and 30 mL Branch in the evening. ondansetron 2023-0 Yes [id number] 4mg Take 1 [facility] 4 mg 1-24 tablet by ity of disintegrat 00:00: mouth [place] ing tablet 00 every 8 Medica l (eight) Branch hours as needed for Nausea and Vomiting (N/V). sucralfate 2023-0 Yes [id number] 1g Take 1 [facility] 1 gram 1-24 tablet by ity of tablet 00:00: mouth [place] 00 before Medical meals and Branch at bedtime. pantoprazol 2023-0 Yes [id number] 40mg Take 1 [facility] e 40 mg EC 1-24 tablet by ity of tablet 00:00: mouth in [place] 00 the Medical morning Branch and 1 tablet in the evening. SUMAtriptan 2023-0 Yes [id number] 50mg Take 1 [facility] 50 mg 1-24 tablet by ity of tablet 00:00: mouth as [place] 00 needed for Medical Migraine. Branch May repeat dose after >=2 hours, max dose 200mg in 24 hours. polyethylen 2023-0 Yes [id number] 17g Take 1 [facility] e glycol 1-24 Packet by ity of 3350 17 00:00: mouth in [place] gram powder 00 the Medical morning Branch and 1 Packet in the evening. lactulose 2023-0 Yes [id number] 30mL Take 30 mL [facility] 10 gram/15 1-24 by mouth ity o f mL solution 00:00: in the [facility] 00 morning Medical and 30 mL Branch in the evening. ondansetron 3-0 Yes [id number] 4mg Take 1 [facility] 4 mg 1-24 tablet by ity of disintegrat 00:00: mouth [place] ing tablet 00 every 8 Medica l (eight) Branch hours as needed for Nausea and Vomiting (N/V). sucralfate 3-0 Yes [id number] 1g Take 1 [facility] 1 gram 1-24 tablet by ity of tablet 00:00: mouth [place] 00 before Medical meals and Branch at bedtime. pantoprazol 3-0 Yes [id number] 40mg Take 1 [facility] e 40 mg EC 1-24 tablet by ity of tablet 00:00: mouth in [place] 00 the Medical morning Branch and 1 tablet in the evening. SUMAtriptan 2023-0 Yes [id number] 50mg Take 1 [facility] 50 mg 1-24 tablet by ity of tablet 00:00: mouth as [place] 00 needed for Medical Migraine. Branch May repeat dose after >=2 hours, max dose 200mg in 24 hours. polyethylen 2023-0 Yes [id number] 17g Take 1 [facility] e glycol 1-24 Packet by ity of 3350 17 00:00: mouth in [place] gram powder 00 the Medical morning Branch and 1 Packet in the evening. lactulose 2023-0 Yes [id number] 30mL Take 30 mL [facility] 10 gram/15 1-24 by mouth ity o f mL solution 00:00: in the [facility] 00 morning Medical and 30 mL Branch in the evening. ondansetron 2023-0 Yes [id number] 4mg Take 1 [facility] 4 mg 1-24 tablet by ity of disintegrat 00:00: mouth [place] ing tablet 00 every 8 Medica l (eight) Branch hours as needed for Nausea and Vomiting (N/V). sucralfate 2023-0 Yes [id number] 1g Take 1 [facility] 1 gram 1-24 tablet by ity of tablet 00:00: mouth [place] 00 before Medical meals and Branch at bedtime. pantoprazol 2023-0 Yes [id number] 40mg Take 1 [facility] e 40 mg EC 1-24 tablet by ity of tablet 00:00: mouth in [place] 00 the Medical morning Branch and 1 tablet in the evening. SUMAtriptan 2023-0 Yes [id number] 50mg Take 1 [facility] 50 mg 1-24 tablet by ity of tablet 00:00: mouth as [place] 00 needed for Medical Migraine. Branch May repeat dose after >=2 hours, max dose 200mg in 24 hours. polyethylen 2023-0 Yes [id number] 17g Take 1 [facility] e glycol 1-24 Packet by ity of 3350 17 00:00: mouth in [place] gram powder 00 the Medical morning Branch and 1 Packet in the evening. lactulose 2023-0 Yes [id number] 30mL Take 30 mL [facility] 10 gram/15 1-24 by mouth ity o f mL solution 00:00: in the [facility] morning Medical and 30 mL Branch in the evening. ondansetron 2023-0 Yes [id number] 4mg Take 1 [facility] 4 mg 1-24 tablet by ity of disintegrat 00:00: mouth [place] ing tablet 00 every 8 Medica l (eight) Branch hours as needed for Nausea and Vomiting (N/V). sucralfate 2023-0 Yes [id number] 1g Take 1 [facility] 1 gram 1-24 tablet by ity of tablet 00:00: mouth [place] 00 before Medical meals and Branch at bedtime. pantoprazol 2023-0 Yes [id number] 40mg Take 1 [facility] e 40 mg EC 1-24 tablet by ity of tablet 00:00: mouth in [place] 00 the Medical morning Branch and 1 tablet in the evening. SUMAtriptan 2023-0 Yes [id number] 50mg Take 1 [facility] 50 mg 1-24 tablet by ity of tablet 00:00: mouth as [place] 00 needed for Medical Migraine. Branch May repeat dose after >=2 hours, max dose 200mg in 24 hours. polyethylen 2023-0 Yes [id number] 17g Take 1 [facility] e glycol 1-24 Packet by ity of 3350 17 00:00: mouth in [place] gram powder 00 the Medical morning Branch and 1 Packet in the evening. lactulose 2023-0 Yes [id number] 30mL Take 30 mL [facility] 10 gram/15 1-24 by mouth ity o f mL solution 00:00: in the morning Medical and 30 mL Branch in the evening. ondansetron 2023-0 Yes [id number] 4mg Take 1 [facility] 4 mg 1-24 tablet by ity of disintegrat 00:00: mouth [place] ing tablet 00 every 8 Medica l (eight) Branch hours as needed for Nausea and Vomiting (N/V). sucralfate 3-0 Yes [id number] 1g Take 1 [facility] 1 gram 1-24 tablet by ity of tablet 00:00: mouth 00 before Medical meals and Branch at bedtime. pantoprazol 2023-0 Yes [id number] 40mg Take 1 [facility] e 40 mg EC 1-24 tablet by ity of tablet 00:00: mouth in [place] 00 the Medical morning Branch and 1 tablet in the evening. SUMAtriptan 3-0 Yes [id number] 50mg Take 1 [facility] 50 mg 1-24 tablet by ity of tablet 00:00: mouth as [place] 00 needed for Medical Migraine. Branch May repeat dose after >=2 hours, max dose 200mg in 24 hours. polyethylen 2023-0 Yes [id number] 17g Take 1 [facility] e glycol 1-24 Packet by ity of 3350 17 00:00: mouth in [place] gram powder 00 the Medical morning Branch and 1 Packet in the evening. lactulose 2023-0 Yes [id number] 30mL Take 30 mL [facility] 10 gram/15 1-24 by mouth ity o f mL solution 00:00: in the morning Medical and 30 mL Branch in the evening. ondansetron 2023-0 Yes [id number] 4mg Take 1 [facility] 4 mg 1-24 tablet by ity of disintegrat 00:00: mouth [place] ing tablet 00 every 8 Medica l (eight) Branch hours as needed for Nausea and Vomiting (N/V). sucralfate 2023-0 Yes [id number] 1g Take 1 [facility] 1 gram 1-24 tablet by ity of tablet 00:00: mouth [place] 00 before Medical meals and Branch at bedtime. pantoprazol 3-0 Yes [id number] 40mg Take 1 [facility] e 40 mg EC 1-24 tablet by ity of tablet 00:00: mouth in [place] 00 the Medical morning Branch and 1 tablet in the evening. SUMAtriptan 2022-0 Yes [id number] 50mg Take 1 [facility] 50 mg 1-24 tablet by ity of tablet 00:00: mouth as [place] 00 needed for Medical Migraine. Branch May repeat dose after >=2 hours, max dose 200mg in 24 hours. polyethylen 2022-0 Yes [id number] 17g Take 1 [facility] e glycol 1-24 Packet by ity of 3350 17 00:00: mouth in [place] gram powder 00 the Medical morning Branch and 1 Packet in the evening. lactulose 2022-0 Yes [id number] 30mL Take 30 mL [facility] 10 gram/15 1-24 by mouth ity o f mL solution 00:00: in the [place] morning Medical and 30 mL Branch in the evening. ondansetron 2022-0 Yes [id number] 4mg Take 1 [facility] 4 mg 1-24 tablet by ity of disintegrat 00:00: mouth [place] ing tablet 00 every 8 Medica l (eight) Branch hours as needed for Nausea and Vomiting (N/V). sucralfate 2022-0 Yes [id number] 1g Take 1 [facility] 1 gram 1-24 tablet by ity of tablet 00:00: mouth [place] 00 before Medical meals and Branch at bedtime. pantoprazol 2022-0 Yes [id number] 40mg Take 1 [facility] e 40 mg EC 1-24 tablet by ity of tablet 00:00: mouth in [place] 00 the Medical morning Branch and 1 tablet in the evening. SUMAtriptan 2022-0 Yes [id number] 50mg Take 1 [facility] 50 mg 1-24 tablet by ity of tablet 00:00: mouth as [place] 00 needed for Medical Migraine. Branch May repeat dose after >=2 hours, max dose 200mg in 24 hours. iopamidol 2022-0 2023- No [id number] 73mL 73 mL, Univers (ISOVUE 1-24 01-24 Intravenou ity o f 370-500 mL) 00:00: 00:00 s, ONCE, 1 [place] injection 00 :00 dose, On Medica l 73 mL [facility] 10/18/22 at 1800, Routine lactulose 2022- No 45mL 45 mL, Unive rs (CEPHULAC) 10-18 Oral, ity of solution 45 23:45: 23:48 ONCE, 1 [place] mL 00 :00 dose, On [facility] 10/18/22 at 1745, SABRINA dicyclomine 2022- No 20mg 20 mg, Uni vers (BENTYL) 10-18 Intramuscu ity of injection 22:30: 22:11 [place], ONCE, [place] 20 mg 00 :00 1 dose, On [facility] 10/18/22 at 1630, Routine NaCl 0.9% 2022- No 1000mL at 999 Uni vers (NS) bolus 10-18 mL/hr, ity of infusion 22:30: 23:42 1,000 mL, [place] 1,000 mL 00 :00 IV Medical Infusion, Branch ONCE, 1 dose, On [facility] 10/18/22 at 1630, SABR[place] M[facility]IVIT [facility] [place] &MINERALS/F 10-18 mouth. ity of ERROUS FUM 21:34: [place] (MULTI 37 Medical VITAMIN Branch ORAL) METHYLCELLU Yes [facility] s LOSE (FIBER 23 ity of THERAPY 21:34: [place] MISC) 37 Medical Branch DOCUSATE Yes Take by [facility] s SODIUM 10-18 mouth. ity of (COLACE 21:34: [place] ORAL) 37 Medical Branch vitamin C Yes 1000mg Take 1,000 [facility] with derrell 1-23 mg by ity of hips 1,000 21:34: mouth [place] mg tablet 37 daily. Medical Branch DOCOSAHEXAN Yes 1000mg Take 1,000 [facility] OIC 1-23 mg by ity of ACID/EPA 21:34: mouth [place] (FISH OIL 37 daily. Medical ORAL) Branch FOLIC ACID Yes Take by Univ ers ORAL 10-18 mouth ity of 20:39: daily. [place] 28 Medical Branch cholecalcif Yes 1000U Take 1,000 [facility] edmar, 10-18 Units by ity of vitamin D3, 20:39: mouth [place] 25 mcg 28 daily. Medical (1,000 Branch unit) tablet CRANBERRY Yes Take by Unive rs FRUIT 10-18 mouth ity of EXTRACT 20:39: daily. [place] (CRANBERRY 28 Medical ORAL) Branch CALCIUM Yes Take by Univers ORAL 10-18 mouth ity of 20:39: daily. [place] 28 Medical Branch BIOTIN ORAL Yes Take by Uni vers 10-18 mouth. ity of 20:39: [place] 28 Medical Branch peg-electro 0 Yes [id number] Take as Univers lyte soln 10-15 9102 directed ity of 236-22.74-6 00:00: before [place] .74 -5.86 00 colonoscop Medi cipriano gram y Branch solution peg-electro 0 Yes [id number] Take as [facility] lyte soln 10-15 9102 directed ity of 236-22.74-6 00:00: before [place] .[place] -5.86 00 colonoscop Medi cipriano gram y Branch solution peg-electro 2022-0 Yes [id number] Take as [facility] lyte soln 10-15 9102 directed ity of 236-22.74-6 00:00: before [place] .[place] -5.86 00 colonoscop Medi cipriano gram y Branch solution peg-electro 2022-0 Yes [id number] Take as [facility] lyte soln 10-15 9102 directed ity of 236-22.74-6 00:00: before [place] .[place] -5.86 00 colonoscop Medi cipriano gram y Branch solution peg-electro 2022-0 Yes [id number] Take as [facility] lyte soln 10-15 9102 directed ity of 236-22.74-6 00:00: before [place] .[place] -5.86 00 colonoscop Medi cipriano gram y Branch solution peg-electro 2022-0 2022- No [id number] Take as Univers lyte soln -20 10-20 9102 directed ity o f 236-22.74-6 00:00: 00:00 before [place] .74 -5.86 00 :00 colonoscop Medi cipriano gram y Branch solution peg-electro 2022-0 2022- No [id number] Take as Univers lyte soln 10-15 9102 directed ity o f 236-22.74-6 00:00: 00:00 before Emanuel as .74 -5.86 00 :00 colonoscop Medi cipriano gram y Branch solution peg-electro 2022-0 2022- No [id number] Take as [facility] lyte soln 10-15 9102 directed ity o f 236-22.74-6 00:00: 00:00 before Emanuel as .74 -5.86 00 :00 colonoscop Medi cipriano gram y Branch solution peg-electro 0 2022- No [id number] Take as Univers lyte soln 10-15 9102 directed ity o f 236-22.74-6 00:00: 00:00 before Emanuel as .74 -5.86 00 :00 colonoscop Medi cipriano gram y Branch solution busPIRone 2023-0 Yes [id number] 20mg Take 2 Un jerrod 10 mg 1-17 tablets by ity of tablet 00:00: mouth in [place] 00 the Medical morning Branch and 2 tablets in the evening. busPIRone 2023-0 Yes [id number] 20mg Take 2 Un jerrod 10 mg 1-17 tablets by ity of tablet 00:00: mouth in [place] [address] the Medical morning Branch and 2 tablets in the evening. busPIRone 2023-0 Yes [id number] 20mg Take 2 Un jerrod 10 mg 1-17 tablets by ity of tablet 00:00: mouth in [place] 00 the Medical morning Branch and 2 tablets in the evening. busPIRone 2023-0 Yes [id number] 20mg Take 2 Un jerrod 10 mg 1-17 tablets by ity of tablet 00:00: mouth in [place] 00 the Medical morning Branch and 2 tablets in the evening. busPIRone 2023-0 Yes [id number] 20mg Take 2 Un jerrod 10 mg 1-17 tablets by ity of tablet 00:00: mouth in [place] 00 the Medical morning Branch and 2 tablets in the evening. busPIRone 2023-0 Yes [id number] 20mg Take 2 Un jerrod 10 mg 1-17 tablets by ity of tablet 00:00: mouth in [place] [address] the Medical morning Branch and 2 tablets in the evening. busPIRone 2023-0 Yes [id number] 20mg Take 2 Un jerrod 10 mg 1-17 tablets by ity of tablet 00:00: mouth in [place] 00 the Medical morning Branch and 2 tablets in the evening. busPIRone 2023-0 Yes [id number] 20mg Take 2 Un jerrod 10 mg 1-17 tablets by ity of tablet 00:00: mouth in [place] 00 the Medical morning Branch and 2 tablets in the evening. busPIRone 2023-0 Yes [id number] 20mg Take 2 Un jerrod 10 mg 1-17 tablets by ity of tablet 00:00: mouth in [place] 00 the Medical morning Branch and 2 tablets in the evening. busPIRone 2023-0 Yes [id number] 20mg Take 2 Un jerrod 10 mg 1-17 tablets by ity of tablet 00:00: mouth in [place] 00 the Medical morning Branch and 2 tablets in the evening. busPIRone 2023-0 Yes [id number] 20mg Take 2 Un jerrod 10 mg 1-17 tablets by ity of tablet 00:00: mouth in [place] 00 the Medical morning Branch and 2 tablets in the evening. busPIRone 2023-0 Yes [id number] 20mg Take 2 Un jerrod 10 mg 1-17 tablets by ity of tablet 00:00: mouth in [place] 00 the Medical morning Branch and 2 tablets in the evening. busPIRone 2023-0 Yes [id number] 20mg Take 2 Un jerrod 10 mg 1-17 tablets by ity of tablet 00:00: mouth in [place] 00 the Medical morning Branch and 2 tablets in the evening. busPIRone 2023-0 Yes [id number] 20mg Take 2 Un jerrod 10 mg 1-17 tablets by ity of tablet 00:00: mouth in [place] 00 the Medical morning Branch and 2 tablets in the evening. busPIRone 2023-0 Yes [id number] 20mg Take 2 Un jerrod 10 mg 1-17 tablets by ity of tablet 00:00: mouth in [place] 00 the Medical morning Branch and 2 tablets in the evening. busPIRone 2023-0 Yes [id number] 20mg Take 2 Un jerrod 10 mg 1-17 tablets by ity of tablet 00:00: mouth in [place] 00 the Medical morning Branch and 2 tablets in the evening. busPIRone 2023-0 Yes [id number] 20mg Take 2 Un jerrod 10 mg 1-17 tablets by ity of tablet 00:00: mouth in [place] 00 the Medical morning Branch and 2 tablets in the evening. busPIRone 2023-0 Yes [id number] 20mg Take 2 Un jerrod 10 mg 1-17 tablets by ity of tablet 00:00: mouth in [place] 00 the Medical morning Branch and 2 tablets in the evening. busPIRone 2023-0 Yes [id number] 20mg Take 2 Un jer[place] 10 mg 1-17 tablets by ity of tablet 00:00: mouth in [place] 00 the Medical morning Branch and 2 tablets in the evening. busPIRone 2023-0 Yes [id number] 20mg Take 2 Un jer[place] 10 mg 1-17 tablets by ity of tablet 00:00: mouth in [place] 00 the Medical morning Branch and 2 tablets in the evening. busPIRone 2023-0 Yes [id number] 20mg Take 2 Un [place] 10 mg 1-17 tablets by ity of tablet 00:00: mouth in [place] 00 the Medical morning Branch and 2 tablets in the evening. busPIRone 2023-0 Yes [id number] 20mg Take 2 Un [place] 10 mg 1-17 tablets by ity of tablet 00:00: mouth in [place] 00 the Medical morning Branch and 2 tablets in the evening. busPIRone 2023-0 Yes [id number] 20mg Take 2 Un [place] 10 mg 1-17 tablets by ity of tablet 00:00: mouth in [place] 00 the Medical morning Branch and 2 tablets in the evening. busPIRone 2023-0 Yes [id number] 20mg Take 2 Un jer[place] 10 mg 1-17 tablets by ity of tablet 00:00: mouth in [place] 00 the Medical morning Branch and 2 tablets in the evening. busPIRone 2023-0 Yes [id number] 20mg Take 2 Un [place] 10 mg 1-17 tablets by ity of tablet 00:00: mouth in [place] 00 the Medical morning Branch and 2 tablets in the evening. busPIRone 2023-0 Yes [id number] 20mg Take 2 Un [place] 10 mg 1-17 tablets by ity of tablet 00:00: mouth in [place] 00 the Medical morning Branch and 2 tablets in the evening. busPIRone 2023-0 Yes [id number] 20mg Take 2 Un [place] 10 mg 1-17 tablets by ity of tablet 00:00: mouth in [place] 00 the Medical morning Branch and 2 tablets in the evening. busPIRone 2023-0 Yes [id number] 20mg Take 2 Un jerrod 10 mg 1-17 tablets by ity of tablet 00:00: mouth in [place] 00 the Medical morning Branch and 2 tablets in the evening. busPIRone 2023-0 Yes [id number] 20mg Take 2 Un ejrrod 10 mg 1-17 tablets by ity of tablet 00:00: mouth in [place] 00 the Medical morning Branch and 2 tablets in the evening. busPIRone 2023-0 Yes [id number] 20mg Take 2 Un jerrod 10 mg 1-17 tablets by ity of tablet 00:00: mouth in [place] 00 the Medical morning Branch and 2 tablets in the evening. busPIRone 2023-0 Yes [id number] 20mg Take 2 Un jerrod 10 mg 1-17 tablets by ity of tablet 00:00: mouth in [place] 00 the Medical morning Branch and 2 tablets in the evening. busPIRone 2023-0 Yes [id number] 20mg Take 2 Un jerrod 10 mg 1-17 tablets by ity of tablet 00:00: mouth in [place] 00 the Medical morning Branch and 2 tablets in the evening. busPIRone 2023-0 Yes [id number] 20mg Take 2 Un jerrod 10 mg 1-17 tablets by ity of tablet 00:00: mouth in [place] 00 the Medical morning Branch and 2 tablets in the evening. busPIRone 2023-0 Yes [id number] 20mg Take 2 Un jerrod 10 mg 1-17 tablets by ity of tablet 00:00: mouth in [place] 00 the Medical morning Branch and 2 tablets in the evening. busPIRone 2023-0 Yes [id number] 20mg Take 2 Un jer[place] 10 mg 1-17 tablets by ity of tablet 00:00: mouth in [place] 00 the Medical morning Branch and 2 tablets in the evening. busPIRone 2023-0 Yes [id number] 20mg Take 2 Un jer[place] 10 mg 1-17 tablets by ity of tablet 00:00: mouth in [place] 00 the Medical morning Branch and 2 tablets in the evening. busPIRone 2023-0 Yes [id number] 20mg Take 2 Un jerrod 10 mg 1-17 tablets by ity of tablet 00:00: mouth in [place] 00 the Medical morning Branch and 2 tablets in the evening. busPIRone 2023-0 Yes [id number] 20mg Take 2 Un jerrod 10 mg 1-17 tablets by ity of tablet 00:00: mouth in [place] 00 the Medical morning Branch and 2 tablets in the evening. busPIRone 2023-0 Yes [id number] 20mg Take 2 Un jerrod 10 mg 1-17 tablets by ity of tablet 00:00: mouth in [place] 00 the Medical morning Branch and 2 tablets in the evening. busPIRone 2023-0 Yes [id number] 20mg Take 2 Un [place] 10 mg 1-17 tablets by ity of tablet 00:00: mouth in [place] 00 the Medical morning Branch and 2 tablets in the evening. busPIRone 2023-0 Yes [id number] 20mg Take 2 Un jerrod 10 mg 1-17 tablets by ity of tablet 00:00: mouth in [place] 00 the Medical morning Branch and 2 tablets in the evening. busPIRone 2023-0 Yes [id number] 20mg Take 2 Un jer[place] 10 mg 1-17 tablets by ity of tablet 00:00: mouth in [place] 00 the Medical morning Branch and 2 tablets in the evening. busPIRone 2023-0 Yes [id number] 20mg Take 2 Un [place] 10 mg 1-17 tablets by ity of tablet 00:00: mouth in [place] 00 the Medical morning Branch and 2 tablets in the evening. busPIRone 2023-0 Yes [id number] 20mg Take 2 Un jer[place] 10 mg 1-17 tablets by ity of tablet 00:00: mouth in [place] 00 the Medical morning Branch and 2 tablets in the evening. busPIRone 2023-0 Yes [id number] 20mg Take 2 Un jerrod 10 mg 1-17 tablets by ity of tablet 00:00: mouth in [place] 00 the Medical morning Branch and 2 tablets in the evening. busPIRone 2023-0 Yes [id number] 20mg Take 2 Un jerrod 10 mg 1-17 tablets by ity of tablet 00:00: mouth in [place] 00 the Medical morning Branch and 2 tablets in the evening. busPIRone 2022-0 Yes [id number] 20mg Take 2 Un jerrod 10 mg [...] 50mg Take 50 mg Univers mg tablet -14 10-20 by mouth ity o f 00:00: 00:00 [...] HOURS FOR Bran ch 7 DAYS sulfamethox 2022-2022- No TAKE 1 Uni vers azole-trime 10-09 TABLET BY it y of thoprim 00:00: 00:00 MOUTH [place] 800-160 mg 00 :00 EVERY 12 Medic al per tablet HOURS FOR Bran ch 7 DAYS metroNIDAZO 2023-0 Yes [id number] 500mg Take 1 Univers LE 500 mg 1-12 tablet by ity o f tablet 00:00: mouth in [place] 00 the Medical morning Branch and 1 tablet in the evening. dicyclomine 2023-0 Yes [id number] 20mg Take 1 Univers 20 mg 1-12 tablet by ity of tablet 00:00: mouth 4 [place] [address] ([facility]) [facility] times [place] daily. metroNIDAZO 2023-0 Yes [id number] 500mg Take 1 Univers LE 500 mg 1-12 tablet by ity o f tablet 00:00: mouth in [place] 00 the Medical morning Branch and 1 tablet in the evening. dicyclomine 2023-0 Yes [id number] 20mg Take 1 Univers 20 mg 1-12 tablet by ity of tablet 00:00: mouth 4 [place] [address] ([facility] times [place] daily. metroNIDAZO 2023-0 Yes [id number] 500mg Take 1 Univers LE 500 mg 1-12 tablet by ity o f tablet 00:00: mouth in [place] 00 the [facility] morning Branch and 1 tablet in the evening. dicyclomine 2023-0 Yes [id number] 20mg Take 1 Univers 20 mg 1-12 tablet by ity of tablet 00:00: mouth [place] [address] ([facility] daily. metroNIDAZO 2023-0 Yes [id number] 500mg Take 1 Univers LE 500 mg 1-12 tablet by ity o f tablet 00:00: mouth in [place] 00 the [facility] morning Branch and 1 tablet in the evening. dicyclomine 2023-0 Yes [id number] 20mg Take 1 Univers 20 mg 1-12 tablet by ity of tablet 00:00: mouth 4 [place] [address] ([facility]) [facility] times [place] daily. metroNIDAZO 2023-0 Yes [id number] 500mg Take 1 Univers LE 500 mg 1-12 tablet by ity o f tablet 00:00: mouth in [place] 00 the [facility] morning Branch and 1 tablet in the evening. dicyclomine 2023-0 Yes [id number] 20mg Take 1 Univers 20 mg 1-12 tablet by ity of tablet 00:00: mouth 4 [place] [address] ([facility]) [facility] times [place] daily. metroNIDAZO 2023-0 Yes [id number] 500mg Take 1 Univers LE 500 mg 1-12 tablet by ity o f tablet 00:00: mouth in [place] 00 the Medical morning Branch and 1 tablet in the evening. dicyclomine 2023-0 Yes [id number] 20mg Take 1 Univers 20 mg 1-12 tablet by ity of tablet 00:00: mouth 4 [place] 00 ([facility]) Medical times [place] daily. metroNIDAZO 2023-0 2023- No [id number] 500mg Take 1 Univers LE 500 mg 10-0724 tablet by ity of tablet 00:00: 00:00 mouth in [place] 00 :00 the Medical morning Branch and 1 tablet in the evening. dicyclomine 2023-0 2023- No [id number] 20mg Take 1 Univers 20 mg 10-07 tablet by ity of tablet 00:00: 00:00 mouth 4 [place] 00 :00 ([facility]) Medical times [place] daily. metroNIDAZO 2023-0 2023- No [id number] 500mg Take 1 Univers LE 500 mg 10-07 tablet by ity of tablet 00:00: 00:00 mouth in [place] 00 :00 the [facility] morning Branch and 1 tablet in the evening. dicyclomine 2023-0 3- No [id number] 20mg Take 1 Univers 20 mg 10-07 tablet by ity of tablet 00:00: 00:00 mouth 4 [place] 00 :00 ([facility]) [facility] times [place] daily. metroNIDAZO 2023-0 2023- No [id number] 500mg Take 1 Univers LE 500 mg 10-07 tablet by ity of tablet 00:00: 00:00 mouth in [place] 00 :00 the Medical morning Branch and 1 tablet in the evening. dicyclomine 2023-0 2023- No [id number] 20mg Take 1 Univers 20 mg 10-0724 tablet by ity of tablet 00:00: 00:00 mouth 4 [place] 00 :00 ([facility]) Medical times [place] daily. metroNIDAZO 2023-0 2023- No [id number] 500mg Take 1 Univers LE 500 mg 10-0724 tablet by ity of tablet 00:00: 00:00 mouth in [place] 00 :00 the Medical morning Branch and 1 tablet in the evening. dicyclomine 2023-0 2023- No [id number] 20mg Take 1 Univers 20 mg 1-12 01-24 tablet by ity of tablet 00:00: 00:00 mouth 4 [place] 00 :00 (four) Medical times Branch daily. metroNIDAZO 2023-0 2023- No [id number] 500mg Take 1 Univers LE 500 mg 10-07 tablet by ity of tablet 00:00: 00:00 mouth in [place] 00 :00 the Medical morning Branch and 1 tablet in the evening. dicyclomine 2023-0 2023- No [id number] 20mg Take 1 Univers 20 mg 10-07 tablet by ity of tablet 00:00: 00:00 mouth 4 [place] 00 :00 (four) Medical times Branch daily. dicyclomine 2023-0 Yes 20mg Take 20 mg Univers 20 mg 1-10 by mouth 4 ity of tablet 00:00: ([facility]) [place] 00 times Medical daily. Branch metoclopram 2023-0 Yes TAKE 1 Univ ers dariela HCl 10 1-10 TABLET BY ity of mg tablet 00:00: [facility] 00 EVERY 6 Medical HOURS (30 Branch MINUTES BEFORE MEALS AND AT BEDTIME) dicyclomine 2023-0 Yes 20mg Take 20 mg Univers 20 mg 1-10 by mouth 4 ity of tablet 00:00: ([facility]) [place] 00 times Medical daily. Branch metoclopram 2023-0 Yes TAKE 1 Univ ers dariela HCl 10 1-10 TABLET BY ity of mg tablet 00:00: [facility] 00 EVERY 6 Medical HOURS (30 Branch MINUTES BEFORE MEALS AND AT BEDTIME) metoclopram 2023-0 Yes TAKE 1 Univ ers dariela HCl 10 1-10 TABLET BY ity of mg tablet 00:00: [facility] EVERY 6 Medical HOURS (30 Branch MINUTES BEFORE MEALS AND AT BEDTIME) metoclopram 2023-0 Yes TAKE 1 Univ ers dariela HCl 10 1-10 TABLET BY ity of mg tablet 00:00: [facility] 00 EVERY 6 Medical HOURS (30 Branch MINUTES BEFORE MEALS AND AT BEDTIME) metoclopram 2023-0 Yes TAKE 1 Univ ers dariela HCl 10 1-10 TABLET BY ity of mg tablet 00:00: [facility] 00 EVERY 6 Medical HOURS (30 Branch MINUTES BEFORE MEALS AND AT BEDTIME) metoclopram 2023-0 Yes TAKE 1 Univ ers dariela HCl 10 1-10 TABLET BY ity of mg tablet 00:00: [facility] 00 EVERY 6 Medical HOURS (30 [...] MINUTES BEFORE MEALS AND AT BEDTIME) dicyclomine 3-0 2023- No 20mg Take 20 mg Univers [...] No TAKE 1 Uni vers oin&Nit. 2-26 01-24 CAPSULE BY ity of Macrocryst 00:00: 00:00 [...] :00 DAILY Medica l NEEDED Branch diphenoxyla 2021-093- No TAKE 2 Uni vers te-atropine 2-17 -24 TABLETS BY i ty of 2.5-0.025 00:00: 00:00 MOUTH [place] mg tablet 00 :00 DAILY Medica l NEEDED Branch pregabalin 2021-09 Yes [id number] 150mg Take 1 [facility] 150 mg 2-14 capsule by ity of capsule 00:00: mouth in [address] and 1 capsule at noon and 1 capsule in the evening. pregabalin 2021-09 Yes [id number] 150mg Take 1 [facility] 150 mg 2-14 capsule by ity of capsule 00:00: mouth in [address] and 1 capsule at noon and 1 capsule in the evening. pregabalin 2021-09 Yes [id number] 150mg Take 1 [facility] 150 mg 2-14 capsule by ity of capsule 00:00: mouth in [address] and 1 capsule at noon and 1 capsule in the evening. pregabalin 2021-09 Yes [id number] 150mg Take 1 [facility] 150 mg 2-14 capsule by ity of capsule 00:00: mouth in [address] and 1 capsule at noon and 1 capsule in the evening. pregabalin 2021-09 Yes [id number] 150mg Take 1 [facility] 150 mg 2-14 capsule by ity of capsule 00:00: mouth in [address] and 1 capsule at noon and 1 capsule in the evening. pregabalin 2021-09 Yes [id number] 150mg Take 1 [facility] 150 mg 2-14 capsule by ity of capsule 00:00: mouth in [address] and 1 capsule at noon and 1 capsule in the evening. pregabalin 2021-09 Yes [id number] 150mg Take 1 [facility] 150 mg 2-14 capsule by ity of capsule 00:00: mouth in [address] and 1 capsule at noon and 1 capsule in the evening. pregabalin 2021-09 Yes [id number] 150mg Take 1 [facility] 150 mg 2-14 capsule by ity of capsule 00:00: mouth in [address] and 1 capsule at noon and 1 capsule in the evening. pregabalin 2021-09 Yes [id number] 150mg Take 1 [facility] 150 mg 2-14 capsule by ity of capsule 00:00: mouth in [place] 00 the Medical morning Branch and 1 capsule at noon and 1 capsule in the evening. pregabalin 2021-09 Yes [id number] 150mg Take 1 [facility] 150 mg 2-14 capsule by ity of capsule 00:00: mouth in [place] 00 the Medical morning Branch and 1 capsule at noon and 1 capsule in the evening. pregabalin 2021-09 Yes [id number] 150mg Take 1 [facility] 150 mg 2-14 capsule by ity of capsule 00:00: mouth in [place] 00 the Medical morning Branch and 1 capsule at noon and 1 capsule in the evening. pregabalin 2021-09 Yes [id number] 150mg Take 1 [facility] 150 mg 2-14 capsule by ity of capsule 00:00: mouth in [address] morning [place] and 1 capsule at noon and 1 capsule in the evening. pregabalin 2021-09- No [id number] 150mg Take 1 Univers 150 mg 2-14 -24 capsule by ity of capsule 00:00: 00:00 mouth in [place] 00 :00 the [facility] morning [place] and 1 capsule at noon and 1 capsule in the evening. pregabalin 2021-09- No [id number] 150mg Take 1 Univers 150 mg 2-14 -24 capsule by ity of capsule 00:00: 00:00 mouth in [place] 00 :00 the [facility] morning [place] and 1 capsule at noon and 1 capsule in the evening. pregabalin 2021-09- No [id number] 150mg Take 1 Univers 150 mg 2-14 -24 capsule by ity of capsule 00:00: 00:00 mouth in [place] 00 :00 the [facility] morning [place] and 1 capsule at noon and 1 capsule in the evening. pregabalin 2021-09- No [id number] 150mg Take 1 Univers 150 mg 2-14 -24 capsule by ity of capsule 00:00: 00:00 mouth in [place] 00 :00 [facility] morning [place] and 1 capsule at noon and 1 capsule in the evening. pregabalin 2021-09- No [id number] 150mg Take 1 Univers 150 mg 2-14 -24 capsule by ity of capsule 00:00: 00:00 mouth in [place] 00 :00 the Medical morning Branch and 1 capsule at noon and 1 capsule in the evening. montekast 2021-09 Yes [id number] 10mg Take 1 Univers (SINGULAIR) 2-09 tablet by ity of 10 mg 00:00: mouth in [place] tablet 00 the Medical morning. [place] montelukast 2021-09 Yes [id number] 10mg Take 1 Univers (SINGULAIR) 2-09 tablet by ity of 10 mg 00:00: mouth in [place] tablet 00 the Medical morning. [place] montelukast 2021-09 Yes [id number] 10mg Take 1 Univers (SINGULAIR) 2-09 tablet by ity of 10 mg 00:00: mouth in [place] tablet 00 the Medical morning. [place] montelust 2021-09 Yes [id number] 10mg Take 1 Univers (SINGULAIR) 2-09 tablet by ity of 10 mg 00:00: mouth in [place] tablet 00 the Medical morning. [place] montelust 2021-09 Yes [id number] 10mg Take 1 Univers (SINGULAIR) 2-09 tablet by ity of 10 mg 00:00: mouth in [place] tablet 00 the Medical morning. [place] [facility] Yes [id number] 10mg Take 1 Univers (SINGULAIR) 2-09 tablet by ity of 10 mg 00:00: mouth in [place] tablet 00 the Medical morning. [place] [facility]-09 Yes [id number] 10mg Take 1 Univers (SINGULAIR) 2-09 tablet by ity of 10 mg 00:00: mouth in [place] tablet 00 the Medical morning. [place] montelust 2021-09 Yes [id number] 10mg Take 1 Univers (SINGULAIR) 2-09 tablet by ity of 10 mg 00:00: mouth in [place] tablet 00 the Medical morning. [facility] [id number] 10mg Take 1 Univers (SINGULAIR) 2-09 tablet by ity of 10 mg 00:00: mouth in [place] tablet 00 the Medical morning. [place] montelust 2021-09 Yes [id number] 10mg Take 1 Univers (SINGULAIR) 2-09 tablet by ity of 10 mg 00:00: mouth in [place] tablet 00 the Medical morning. [facility] Yes [id number] 10mg Take 1 Univers (SINGULAIR) 2-09 tablet by ity of 10 mg 00:00: mouth in [place] tablet 00 the Medical morning. [facility] 2021-09 Yes [id number] 10mg Take 1 Univers (SINGULAIR) 2-09 tablet by ity of 10 mg 00:00: mouth in [place] tablet 00 the Medical morning. [facility] 2021-09 Yes [id number] 10mg Take 1 Univers (SINGULAIR) 2-09 tablet by ity of 10 mg 00:00: mouth in [place] tablet 00 the Medical morning. [facility] 2021-09 Yes [id number] 10mg Take 1 Univers (SINGULAIR) 2-09 tablet by ity of 10 mg 00:00: mouth in [place] tablet 00 the Medical morning. [facility] 2021-09 Yes [id number] 10mg Take 1 Univers (SINGULAIR) 2-09 tablet by ity of 10 mg 00:00: mouth in [place] tablet 00 the Medical morning. [facility] 2021-09 Yes [id number] 10mg Take 1 Univers (SINGULAIR) 2-09 tablet by ity of 10 mg 00:00: mouth in [place] tablet 00 the Medical morning. [facility] 2021-09 Yes [id number] 10mg Take 1 Univers (SINGULAIR) 2-09 tablet by ity of 10 mg 00:00: mouth in [place] tablet 00 the Medical morning. [facility] 2021-09 Yes [id number] 10mg Take 1 Univers (SINGULAIR) 2-09 tablet by ity of 10 mg 00:00: mouth in [place] tablet 00 the Medical morning. [facility] 2021-09 Yes [id number] 10mg Take 1 Univers (SINGULAIR) 2-09 tablet by ity of 10 mg 00:00: mouth in [place] tablet 00 the Medical morning. [facility] 2021-09 Yes [id number] 10mg Take 1 Univers (SINGULAIR) 2-09 tablet by ity of 10 mg 00:00: mouth in [place] tablet 00 the Medical morning. [facility] 2021-09 Yes [id number] 10mg Take 1 Univers (SINGULAIR) 2-09 tablet by ity of 10 mg 00:00: mouth in [place] tablet 00 the Medical morning. [facility] 2021-09 Yes [id number] 10mg Take 1 Univers (SINGULAIR) 2-09 tablet by ity of 10 mg 00:00: mouth in [place] tablet 00 the Medical morning. [facility] 2021-09 Yes [id number] 10mg Take 1 Univers (SINGULAIR) 2-09 tablet by ity of 10 mg 00:00: mouth in [place] tablet 00 the Medical morning. [facility] 2021-09 Yes [id number] 10mg Take 1 Univers (SINGULAIR) 2-09 tablet by ity of 10 mg 00:00: mouth in [place] tablet 00 the Medical morning. [facility] 2021-09 Yes [id number] 10mg Take 1 Univers (SINGULAIR) 2-09 tablet by ity of 10 mg 00:00: mouth in [place] tablet 00 the Medical morning. [facility] 2021-09 Yes [id number] 10mg Take 1 Univers (SINGULAIR) 2-09 tablet by ity of 10 mg 00:00: mouth in [place] tablet 00 the Medical morning. [facility] 2021-09 Yes [id number] 10mg Take 1 Univers (SINGULAIR) 2-09 tablet by ity of 10 mg 00:00: mouth in [place] tablet 00 the Medical morning. [facility] 2021-09 Yes [id number] 10mg Take 1 Univers (SINGULAIR) 2-09 tablet by ity of 10 mg 00:00: mouth in [place] tablet 00 the Medical morning. [facility] 2021-09 Yes [id number] 10mg Take 1 Univers (SINGULAIR) 2-09 tablet by ity of 10 mg 00:00: mouth in [place] tablet 00 the Medical morning. [facility] 2021-09 Yes [id number] 10mg Take 1 Univers (SINGULAIR) 2-09 tablet by ity of 10 mg 00:00: mouth in [place] tablet 00 the Medical morning. [facility] 2021-09 Yes [id number] 10mg Take 1 [facility] 2-09 tablet by [facility] of 10 mg 00:00: mouth in [place] tablet 00 the Medical morning. [facility] 2021-09 Yes [id number] 10mg Take 1 [facility] (SINGULAIR) 2-09 tablet by [facility] of 10 mg 00:00: mouth in [place] tablet 00 the Medical morning. [facility] 2021-09 Yes [id number] 10mg Take 1 [facility] (SINGULAIR) 2-09 tablet by [facility] of 10 mg 00:00: mouth in [place] tablet 00 the Medical morning. [facility] 2021-09 Yes [id number] 10mg Take 1 [facility] (SINGULAIR) 2-09 tablet by [facility] of 10 mg 00:00: mouth in [place] tablet 00 the Medical morning. [facility] 2021-09 Yes [id number] 10mg Take 1 [facility] (SINGULAIR) 2-09 tablet by [facility] of 10 mg 00:00: mouth in [place] tablet 00 the Medical morning. [facility] 2021-09 Yes [id number] 10mg Take 1 [facility] (SINGULAIR) 2-09 tablet by [facility] of 10 mg 00:00: mouth in [place] tablet 00 the Medical morning. [facility] 2021-09 Yes [id number] 10mg Take 1 [facility] (SINGULAIR) 2-09 tablet by [facility]y of 10 mg 00:00: mouth in [place] tablet 00 the Medical morning. [facility] 2021-09 Yes [id number] 10mg Take 1 [facility] (SINGULAIR) 2-09 tablet by [facility] of 10 mg 00:00: mouth in [place] tablet 00 the Medical morning. [facility] 2021-09 Yes [id number] 10mg Take 1 [facility] (SINGULAIR) 2-09 tablet by [facility]y of 10 mg 00:00: mouth in [place] tablet 00 the Medical morning. [facility] 2021-09 Yes [id number] 10mg Take 1 [facility] (SINGULAIR) 2-09 tablet by [facility] of 10 mg 00:00: mouth in [place] tablet 00 the Medical morning. [facility] 2021-09 Yes [id number] 10mg Take 1 [facility] (SINGULAIR) 2-09 tablet by [facility] of 10 mg 00:00: mouth in [place] tablet 00 the Medical morning. [facility] 2021-09 Yes [id number] 10mg Take 1 [facility] (SINGULAIR) 2-09 tablet by [facility] of 10 mg 00:00: mouth in [place] tablet 00 the Medical morning. [facility] 2021-09 Yes [id number] 10mg Take 1 [facility] (SINGULAIR) 2-09 tablet by [facility] of 10 mg 00:00: mouth in [place] tablet 00 the Medical morning. [facility] 2021-09 Yes [id number] 10mg Take 1 [facility] (SINGULAIR) 2-09 tablet by [facility] of 10 mg 00:00: mouth in [place] tablet 00 the Medical morning. [facility] 2021-09 Yes [id number] 10mg Take 1 [facility] (SINGULAIR) 2-09 tablet by [facility]y of 10 mg 00:00: mouth in [place] tablet 00 the Medical morning. [facility] 2021-09 Yes [id number] 10mg Take 1 [facility] (SINGULAIR) 2-09 tablet by [facility] of 10 mg 00:00: mouth in [place] tablet 00 the Medical morning. [facility] 2021-09 Yes [id number] 10mg Take 1 [facility] (SINGULAIR) 2-09 tablet by [facility] of 10 mg 00:00: mouth in [place] tablet 00 the Medical morning. [facility] 2021-09 Yes [id number] 10mg Take 1 [facility] (SINGULAIR) 2-09 tablet by [facility]y of 10 mg 00:00: mouth in [place] tablet 00 the Medical morning. [facility] 2021-09 Yes [id number] 10mg Take 1 [facility] (SINGULAIR) 2-09 tablet by [facility] of 10 mg 00:00: mouth in [place] tablet 00 the Medical morning. [facility] 2021-09 Yes [id number] 10mg Take 1 [facility] (SINGULAIR) 2-09 tablet by [facility]y of 10 mg 00:00: mouth in [place] tablet 00 the Medical morning. [facility] 2021-09 Yes [id number] 10mg Take 1 [facility] (SINGULAIR) 2-09 tablet by [facility]y of 10 mg 00:00: mouth in [place] tablet 00 the Medical morning. [facility] 2021-09 Yes [id number] 10mg Take 1 [facility] (SINGULAIR) 2-09 tablet by ity of 10 mg 00:00: mouth in [place] tablet 00 the Medical morning. [facility] 2021-09 Yes [id number] 10mg Take 1 [facility] (SINGULAIR) 2-09 tablet by ity of 10 mg 00:00: mouth in [place] tablet 00 the Medical morning. [facility] montelukast 2021-09 Yes [id number] 10mg Take 1 [facility] (SINGULAIR) 2-09 tablet by [facility] of 10 mg 00:00: mouth in [place] tablet 00 the Medical morning. [facility] montelukast 2021-09 Yes [id number] 10mg Take 1 [facility] (SINGULAIR) 2-09 tablet by [facility] of 10 mg 00:00: mouth in [place] tablet 00 the Medical morning. [facility] montelukast 2021-09 Yes [id number] 10mg Take 1 [facility] (SINGULAIR) 2-09 tablet by [facility] of 10 mg 00:00: mouth in [place] tablet 00 the Medical morning. [facility] montelukast 2021-09 Yes [id number] 10mg Take 1 [facility] (SINGULAIR) 2-09 tablet by [facility] of 10 mg 00:00: mouth in [place] tablet 00 the Medical morning. [facility] montelukast 2021-09 Yes [id number] 10mg Take 1 [facility] (SINGULAIR) 2-09 tablet [...] No TAKE 1 [facility] ers 20 mg 2-02 - TABLET BY ity of tablet 00:00: 00:00 MOUTH [place] 00 :00 EVERY 12 Medical HOURS FOR Branch 10 DAYS famotidine 2021-09- No TAKE 1 [facility] ers 20 mg 10-28 TABLET BY ity of tablet 00:00: 00:00 MOUTH [place] 00 :00 EVERY 12 Medical HOURS FOR Branch 10 DAYS CYANOCOBALA 2021-09 Yes [id number] INJECT 1ML [facility] MIN 1,000 1-30 INTRAMUSCU ity of mcg/mL 00:00: LARLY [place] injection 00 EVERY TWO Medic al WEEKS Branch CYANOCOBALA 2021-09 Yes [id number] INJECT 1ML [facility] MIN 1,000 1-30 INTRAMUSCU ity of mcg/mL 00:00: LARLY [place] injection 00 EVERY TWO Medic al WEEKS Branch CYANOCOBALA 2021-09 Yes [id number] INJECT 1ML [facility] MIN 1,000 1-30 INTRAMUSCU ity of mcg/mL 00:00: LARLY [place] injection 00 EVERY TWO Medic al WEEKS Branch CYANOCOBALA 2021-09 Yes [id number] INJECT 1ML [facility] MIN 1,000 1-30 INTRAMUSCU ity of mcg/mL 00:00: LARLY [place] injection 00 EVERY TWO Medic al WEEKS Branch CYANOCOBALA 2021-09 Yes [id number] INJECT 1ML [facility] MIN 1,000 1-30 INTRAMUSCU ity of mcg/mL 00:00: LARLY [place] injection 00 EVERY TWO Medic al WEEKS Branch CYANOCOBALA 2021-09 Yes [id number] INJECT 1ML [facility] MIN 1,000 1-30 INTRAMUSCU ity of mcg/mL 00:00: LARLY [place] injection 00 EVERY TWO Medic al WEEKS Branch CYANOCOBALA 2021-09 Yes [id number] INJECT 1ML [facility] MIN 1,000 1-30 INTRAMUSCU ity of mcg/mL 00:00: LARLY [place] injection 00 EVERY TWO Medic al WEEKS Branch CYANOCOBALA 2021-09 Yes [id number] INJECT 1ML [facility] MIN 1,000 1-30 INTRAMUSCU ity of mcg/mL 00:00: LARLY [place] injection 00 EVERY TWO Medic al WEEKS Branch CYANOCOBALA 2021-09 Yes [id number] INJECT 1ML [facility] MIN 1,000 1-30 INTRAMUSCU ity of mcg/mL 00:00: LARLY [place] injection 00 EVERY TWO Medic al WEEKS Branch CYANOCOBALA 2021-09 Yes [id number] INJECT 1ML [facility] MIN 1,000 1-30 INTRAMUSCU ity of mcg/mL 00:00: LARLY [place] injection 00 EVERY TWO Medic al WEEKS Branch CYANOCOBALA 2021-09 Yes [id number] INJECT 1ML [facility] MIN 1,000 1-30 INTRAMUSCU ity of mcg/mL 00:00: LARLY [place] injection 00 EVERY TWO Medic al WEEKS Branch CYANOCOBALA 2021-09 Yes [id number] INJECT 1ML [facility] MIN 1,000 1-30 INTRAMUSCU ity of mcg/mL 00:00: LARLY [place] injection 00 EVERY TWO Medic al WEEKS Branch CYANOCOBALA 2021-09 Yes [id number] INJECT 1ML [facility] MIN 1,000 1-30 INTRAMUSCU ity of mcg/mL 00:00: LARLY [place] injection 00 EVERY TWO Medic al WEEKS Branch CYANOCOBALA 2021-09 Yes [id number] INJECT 1ML [facility] MIN 1,000 1-30 INTRAMUSCU ity of mcg/mL 00:00: LARLY [place] injection 00 EVERY TWO Medic al WEEKS Branch CYANOCOBALA 2021-09 Yes [id number] INJECT 1ML [facility] MIN 1,000 1-30 INTRAMUSCU ity of mcg/mL 00:00: LARLY [place] injection 00 EVERY TWO Medic al WEEKS Branch CYANOCOBALA 2021-09 Yes [id number] INJECT 1ML [facility] MIN 1,000 1-30 INTRAMUSCU ity of mcg/mL 00:00: LARLY [place] injection 00 EVERY TWO Medic al WEEKS Branch CYANOCOBALA 2021-09 Yes [id number] INJECT 1ML [facility] MIN 1,000 1-30 INTRAMUSCU ity of mcg/mL 00:00: LARLY [place] injection 00 EVERY TWO Medic al WEEKS Branch CYANOCOBALA 2021-09 Yes [id number] INJECT 1ML [facility] MIN 1,000 1-30 INTRAMUSCU ity of mcg/mL 00:00: LARLY [place] injection 00 EVERY TWO Medic al WEEKS Branch CYANOCOBALA 2021-09 Yes [id number] INJECT 1ML [facility] MIN 1,000 1-30 INTRAMUSCU ity of mcg/mL 00:00: LARLY [place] injection 00 EVERY TWO Medic al WEEKS Branch CYANOCOBALA 2021-09 Yes [id number] INJECT 1ML [facility] MIN 1,000 1-30 INTRAMUSCU ity of mcg/mL 00:00: LARLY [place] injection 00 EVERY TWO Medic al WEEKS Branch CYANOCOBALA 2021-09 Yes [id number] INJECT 1ML [facility] MIN 1,000 1-30 INTRAMUSCU ity of mcg/mL 00:00: LARLY [place] injection 00 EVERY TWO Medic al WEEKS Branch CYANOCOBALA 2021-09 Yes [id number] INJECT 1ML [facility] MIN 1,000 1-30 INTRAMUSCU ity of mcg/mL 00:00: LARLY [place] injection 00 EVERY TWO Medic al WEEKS Branch CYANOCOBALA 2021-09 Yes [id number] INJECT 1ML [facility] MIN 1,000 1-30 INTRAMUSCU ity of mcg/mL 00:00: LARLY [place] injection 00 EVERY TWO Medic al WEEKS Branch CYANOCOBALA 2021-09 Yes [id number] INJECT 1ML [facility] MIN 1,000 1-30 INTRAMUSCU ity of mcg/mL 00:00: LARLY [place] injection 00 EVERY TWO Medic al WEEKS Branch CYANOCOBALA 2021-09 Yes [id number] INJECT 1ML [facility] MIN 1,000 1-30 INTRAMUSCU ity of mcg/mL 00:00: LARLY [place] injection 00 EVERY TWO Medic al WEEKS Branch CYANOCOBALA 2021-09 Yes [id number] INJECT 1ML [facility] MIN 1,000 1-30 INTRAMUSCU ity of mcg/mL 00:00: LARLY [place] injection 00 EVERY TWO Medic al WEEKS Branch CYANOCOBALA 2021-09 Yes [id number] INJECT 1ML [facility] MIN 1,000 1-30 INTRAMUSCU ity of mcg/mL 00:00: LARLY [place] injection 00 EVERY TWO Medic al WEEKS Branch CYANOCOBALA 2021-09 Yes [id number] INJECT 1ML [facility] MIN 1,000 1-30 INTRAMUSCU ity of mcg/mL 00:00: LARLY [place] injection 00 EVERY TWO Medic al WEEKS Branch CYANOCOBALA 2021-09 Yes [id number] INJECT 1ML [facility] MIN 1,000 1-30 INTRAMUSCU ity of mcg/mL 00:00: LARLY [place] injection 00 EVERY TWO Medic al WEEKS Branch CYANOCOBALA 2021-09 Yes [id number] INJECT 1ML [facility] MIN 1,000 1-30 INTRAMUSCU ity of mcg/mL 00:00: LARLY [place] injection 00 EVERY TWO Medic al WEEKS Branch CYANOCOBALA 2021-09 Yes [id number] INJECT 1ML [facility] MIN 1,000 1-30 INTRAMUSCU ity of mcg/mL 00:00: LARLY [place] injection 00 EVERY TWO Medic al WEEKS Branch CYANOCOBALA 2021-09 Yes [id number] INJECT 1ML [facility] MIN 1,000 1-30 INTRAMUSCU ity of mcg/mL 00:00: LARLY [place] injection 00 EVERY TWO Medic al WEEKS Branch CYANOCOBALA 2021-09 Yes [id number] INJECT 1ML [facility] MIN 1,000 1-30 INTRAMUSCU ity of mcg/mL 00:00: LARLY [place] injection 00 EVERY TWO Medic al WEEKS Branch CYANOCOBALA 2021-09- No [id number] INJECT 1ML [facility] MIN 1,000 1-30 02-07 INTRAMUSCU ity of mcg/mL 00:00: 00:00 LARLY [place] injection 00 :00 EVERY TWO Medic al WEEKS Branch CYANOCOBALA 2021-09- No [id number] INJECT 1ML [facility] MIN 1,000 1-30 02-07 INTRAMUSCU ity of mcg/mL 00:00: 00:00 LARLY [place] injection 00 :00 EVERY TWO Medic al WEEKS Branch CYANOCOBALA 2021-09- No [id number] INJECT 1ML [facility] MIN 1,000 1-30 02-07 INTRAMUSCU ity of mcg/mL 00:00: 00:00 LARLY [place] injection 00 :00 EVERY TWO Medic al WEEKS Branch CYANOCOBALA 2021-09- No [id number] INJECT 1ML [facility] MIN 1,000 1-30 02-07 INTRAMUSCU ity of mcg/mL 00:00: 00:00 LARLY [place] injection 00 :00 EVERY TWO Medic al WEEKS Branch CYANOCOBALA 2021-09- No [id number] INJECT 1ML [facility] MIN 1,000 1-30 02-07 INTRAMUSCU ity of mcg/mL 00:00: 00:00 LARLY [place] injection 00 :00 EVERY TWO Medic al WEEKS Branch CYANOCOBALA 2021-09- No [id number] INJECT 1ML [facility] MIN 1,000 1-30 02-07 INTRAMUSCU ity of mcg/mL 00:00: 00:00 LARLY [place] injection 00 :00 EVERY TWO Medic al WEEKS Branch CYANOCOBALA 2021-09- No [id number] INJECT 1ML [facility] MIN 1,000 1-30 02-07 INTRAMUSCU ity of mcg/mL 00:00: 00:00 LARLY [place] injection 00 :00 EVERY TWO Medic al WEEKS Branch CYANOCOBALA 2021-09- No [id number] INJECT 1ML [facility] MIN 1,000 1-30 02-07 INTRAMUSCU ity of mcg/mL 00:00: 00:00 LARLY [place] injection 00 :00 EVERY TWO Medic al WEEKS Branch CYANOCOBALA 2021-09- No [id number] INJECT 1ML [facility] MIN 1,000 1-30 02-07 INTRAMUSCU ity of mcg/mL 00:00: 00:00 LARLY [place] injection 00 :00 EVERY TWO Medic al WEEKS Branch CYANOCOBALA 2021-09- No [id number] INJECT 1ML [facility] MIN 1,000 1-30 02-07 INTRAMUSCU ity of mcg/mL 00:00: 00:00 LARLY [place] injection 00 :00 EVERY TWO Medic al WEEKS Branch CYANOCOBALA 2021-09- No [id number] INJECT 1ML [facility] MIN 1,000 1-30 02-07 INTRAMUSCU ity of mcg/mL 00:00: 00:00 LARLY [place] injection 00 :00 EVERY TWO Medic al WEEKS Branch CYANOCOBALA 2021-09- No [id number] INJECT 1ML [facility] MIN 1,000 1-30 02-07 INTRAMUSCU ity of mcg/mL 00:00: 00:00 LARLY [place] injection 00 :00 EVERY TWO Medic al WEEKS Branch CYANOCOBALA 2021-09- No [id number] INJECT 1ML [facility] MIN 1,000 1-30 02-07 INTRAMUSCU ity of mcg/mL 00:00: 00:00 LARLY [place] injection 00 :00 EVERY TWO Medic al WEEKS Branch CYANOCOBALA 2021-09- No [id number] INJECT 1ML [facility] MIN 1,000 1-30 02-07 INTRAMUSCU ity of mcg/mL 00:00: 00:00 LARLY [place] injection 00 :00 EVERY TWO Medic al WEEKS [place] ondansetron 2021-09 Yes TAKE 1 [facility] ers [...] 1-22 TABLET BY ity of 00:00: MOUTH [place] 00 EVERY 12 Medical HOURS Branch NEEDED ondansetron 2022-1 Yes TAKE 1 [facility] ers 4 mg tablet 1-22 TABLET BY ity of 00:00: MOUTH [place] 00 EVERY 12 Medical HOURS Branch NEEDED ondansetron 2022-1 Yes TAKE 1 [facility] ers 4 mg tablet 1-22 TABLET BY ity of 00:00: MOUTH [place] 00 EVERY 12 Medical HOURS Branch NEEDED ondansetron 2022-1 Yes TAKE 1 [facility] ers 4 mg tablet 1-22 TABLET BY ity of 00:00: MOUTH [place] 00 EVERY 12 Medical HOURS Branch NEEDED ondansetron 2022-1 Yes TAKE 1 [facility] ers 4 mg tablet 1-22 TABLET BY ity of 00:00: MOUTH [place] 00 EVERY 12 Medical HOURS Branch NEEDED ondansetron 2-1 Yes TAKE 1 [facility] ers 4 mg tablet 1-22 TABLET BY ity of 00:00: MOUTH [place] EVERY 12 Medical HOURS Branch NEEDED ondansetron 2-1 Yes TAKE 1 [facility] ers 4 mg tablet 1-22 TABLET BY ity of 00:00: MOUTH [place] 00 EVERY 12 Medical HOURS Branch NEEDED ondansetron 2-1 Yes TAKE 1 [facility] ers 4 mg tablet 1-22 TABLET BY ity of 00:00: MOUTH [place] 00 EVERY 12 Medical HOURS Branch NEEDED ondansetron 2-1 Yes TAKE 1 [facility] ers 4 mg tablet 1-22 TABLET BY ity of 00:00: MOUTH [place] 00 EVERY 12 Medical HOURS Branch NEEDED ondansetron 2-1 Yes TAKE 1 [facility] ers 4 mg tablet 1-22 TABLET BY ity of 00:00: MOUTH [place] 00 EVERY 12 Medical HOURS Branch NEEDED naproxen 2-1 Yes 500mg Take 500 [facility] ers 500 mg 1-18 mg by ity of tablet 00:00: mouth in [place] 00 the Medical morning Branch and 500 mg in the evening. Take with meals. naproxen 2-1 Yes 500mg Take 500 [facility] ers 500 mg 1-18 mg by ity of tablet 00:00: mouth in [place] 00 the Medical morning Branch and 500 mg in the evening. Take with meals. naproxen 2-1 Yes 500mg Take 500 [facility] ers 500 mg 1-18 mg by ity of tablet 00:00: mouth in [place] 00 the Medical morning Branch and 500 mg in the evening. Take with meals. naproxen 2-1 Yes 500mg Take 500 [facility] ers 500 mg 1-18 mg by ity of tablet 00:00: mouth in [place] 00 the Medical morning Branch and 500 mg in the evening. Take with meals. naproxen 2-1 Yes 500mg Take 500 [facility] ers 500 mg 1-18 mg by ity of tablet 00:00: mouth in [place] 00 the Medical morning Branch and 500 mg in the evening. Take with meals. naproxen 2021-1 Yes 500mg Take 500 [facility] ers 500 mg 1-18 mg by ity of tablet 00:00: mouth in [place] 00 the Medical morning Branch and 500 mg in the evening. Take with meals. naproxen 2021-1 Yes 500mg Take 500 [facility] ers 500 mg 1-18 mg by ity of tablet 00:00: mouth in [place] 00 the Medical morning Branch and 500 mg in the evening. Take with meals. naproxen 2021-3- No 500mg Take 500 Uni vers 500 mg 1-18 01-23 mg by ity of tablet 00:00: 00:00 mouth in [place] 00 :00 the Medical morning Branch and 500 mg in the evening. Take with meals. naproxen 2021-3- No 500mg Take 500 [facility] vers 500 mg 1-18 01-23 mg by ity of tablet 00:00: 00:00 mouth in [place] 00 :00 the Medical morning Branch and 500 mg in the evening. Take with meals. naproxen 2021-3- No 500mg Take 500 [facility] vers 500 mg 1-18 01-23 mg by ity of tablet 00:00: 00:00 mouth in [place] 00 :00 the Medical morning Branch and 500 mg in the evening. Take with meals. naproxen 2021-1 3- No 500mg Take 500 [facility] vers 500 mg 1-18 01-23 mg by ity of tablet 00:00: 00:00 mouth in [place] 00 :00 the Medical morning Branch and 500 mg in the evening. Take with meals. naproxen 2021-3- No 500mg Take 500 [facility] vers 500 mg 1-18 01-23 mg by ity of tablet 00:00: 00:00 mouth in [place] 00 :00 the Medical morning Branch and 500 mg in the evening. Take with meals. levothyroxi 2021-09 Yes [id number] 50ug Take 1 [facility] ne 50 mcg 1-03 tablet by ity o f tablet 00:00: mouth [place] 00 every Medical morning. Branch levothyroxi 2021-09 Yes [id number] 50ug Take 1 [facility] ne 50 mcg 1-03 tablet by ity o f tablet 00:00: mouth [place] 00 every Medical morning. Branch levothyroxi 2021-09 Yes [id number] 50ug Take 1 [facility] ne 50 mcg 1-03 tablet by ity o f tablet 00:00: mouth [place] 00 every Medical morning. Branch levothyroxi 2021-09 Yes [id number] 50ug Take 1 [facility] ne 50 mcg 1-03 tablet by ity o f tablet 00:00: mouth [place] 00 every Medical morning. Branch levothyroxi 2021-09 Yes [id number] 50ug Take 1 [facility] ne 50 mcg 1-03 tablet by ity o f tablet 00:00: mouth [place] 00 every Medical morning. Branch levothyroxi 2021-09 Yes [id number] 50ug Take 1 [facility] ne 50 mcg 1-03 tablet by ity o f tablet 00:00: mouth [place] 00 every Medical morning. Branch levothyroxi 2021-09 Yes [id number] 50ug Take 1 [facility] ne 50 mcg 1-03 tablet by ity o f tablet 00:00: mouth [place] 00 every Medical morning. Branch levothyroxi 2021-09 Yes [id number] 50ug Take 1 [facility] ne 50 mcg 1-03 tablet by ity o f tablet 00:00: mouth [place] 00 every Medical morning. Branch levothyroxi 2021-09 Yes [id number] 50ug Take 1 [facility] ne 50 mcg 1-03 tablet by ity o f tablet 00:00: mouth [place] 00 every Medical morning. Branch levothyroxi 2021-09 Yes [id number] 50ug Take 1 [facility] ne 50 mcg 1-03 tablet by ity o f tablet 00:00: mouth [place] 00 every Medical morning. Branch levothyroxi 2021-09 Yes [id number] 50ug Take 1 [facility] ne 50 mcg 1-03 tablet by ity o f tablet 00:00: mouth [place] 00 every Medical morning. Branch levothyroxi 2021-09 Yes [id number] 50ug Take 1 [facility] ne 50 mcg 1-03 tablet by ity o f tablet 00:00: mouth [place] 00 every Medical morning. Branch levothyroxi 2021-09 Yes [id number] 50ug Take 1 [facility] ne 50 mcg 1-03 tablet by ity o f tablet 00:00: mouth [place] 00 every Medical morning. Branch levothyroxi 2021-09 Yes [id number] 50ug Take 1 [facility] ne 50 mcg 1-03 tablet by ity o f tablet 00:00: mouth [place] 00 every Medical morning. Branch levothyroxi 2021-09 Yes [id number] 50ug Take 1 [facility] ne 50 mcg 1-03 tablet by ity o f tablet 00:00: mouth [place] 00 every Medical morning. Branch levothyroxi 2021-09 Yes [id number] 50ug Take 1 [facility] ne 50 mcg 1-03 tablet by ity o f tablet 00:00: mouth [place] 00 every Medical morning. Branch levothyroxi 2021-09 Yes [id number] 50ug Take 1 [facility] ne 50 mcg 1-03 tablet by ity o f tablet 00:00: mouth [place] 00 every Medical morning. Branch levothyroxi 2021-09 Yes [id number] 50ug Take 1 [facility] ne 50 mcg 1-03 tablet by ity o f tablet 00:00: mouth [place] 00 every Medical morning. Branch levothyroxi 2021-09 Yes [id number] 50ug Take 1 [facility] ne 50 mcg 1-03 tablet by ity o f tablet 00:00: mouth [place] 00 every Medical morning. Branch levothyroxi 2021-09 Yes [id number] 50ug Take 1 [facility] ne 50 mcg 1-03 tablet by ity o f tablet 00:00: mouth [place] 00 every Medical morning. Branch levothyroxi 2021-09 Yes [id number] 50ug Take 1 [facility] ne 50 mcg 1-03 tablet by ity o f tablet 00:00: mouth [place] 00 every Medical morning. Branch levothyroxi 2021-09 Yes [id number] 50ug Take 1 [facility] ne 50 mcg 1-03 tablet by ity o f tablet 00:00: mouth [place] 00 every Medical morning. Branch levothyroxi 2021-09 Yes [id number] 50ug Take 1 [facility] ne 50 mcg 1-03 tablet by ity o f tablet 00:00: mouth [place] 00 every Medical morning. Branch levothyroxi 2021-09 Yes [id number] 50ug Take 1 [facility] ne 50 mcg 1-03 tablet by ity o f tablet 00:00: mouth [place] 00 every Medical morning. Branch levothyroxi 2021-09 Yes [id number] 50ug Take 1 [facility] ne 50 mcg 1-03 tablet by ity o f tablet 00:00: mouth [place] 00 every Medical morning. Branch levothyroxi 2021-09 Yes [id number] 50ug Take 1 [facility] ne 50 mcg 1-03 tablet by ity o f tablet 00:00: mouth [place] 00 every Medical morning. Branch levothyroxi 2021-09 Yes [id number] 50ug Take 1 [facility] ne 50 mcg 1-03 tablet by ity o f tablet 00:00: mouth [place] 00 every Medical morning. Branch levothyroxi 2021-09 Yes [id number] 50ug Take 1 [facility] ne 50 mcg 1-03 tablet by ity o f tablet 00:00: mouth [place] 00 every Medical morning. Branch levothyroxi 2021-09 Yes [id number] 50ug Take 1 [facility] ne 50 mcg 1-03 tablet by ity o f tablet 00:00: mouth [place] 00 every Medical morning. Branch levothyroxi 2021-09 Yes [id number] 50ug Take 1 [facility] ne 50 mcg 1-03 tablet by ity o f tablet 00:00: mouth [place] 00 every Medical morning. Branch levothyroxi 2021-09 Yes [id number] 50ug Take 1 [facility] ne 50 mcg 1-03 tablet by ity o f tablet 00:00: mouth [place] 00 every Medical morning. Branch levothyroxi 2021-09 Yes [id number] 50ug Take 1 [facility] ne 50 mcg 1-03 tablet by ity o f tablet 00:00: mouth [place] 00 every Medical morning. Branch levothyroxi 2021-09 Yes [id number] 50ug Take 1 [facility] ne 50 mcg 1-03 tablet by ity o f tablet 00:00: mouth [place] 00 every Medical morning. Branch levothyroxi 2021-09 Yes [id number] 50ug Take 1 [facility] ne 50 mcg 1-03 tablet by ity o f tablet 00:00: mouth [place] 00 every Medical morning. Branch levothyroxi 2021-09 Yes [id number] 50ug Take 1 [facility] ne 50 mcg 1-03 tablet by ity o f tablet 00:00: mouth [place] 00 every Medical morning. Branch levothyroxi 2021-09 Yes [id number] 50ug Take 1 [facility] ne 50 mcg 1-03 tablet by ity o f tablet 00:00: mouth [place] 00 every Medical morning. Branch levothyroxi 2021-09 Yes [id number] 50ug Take 1 [facility] ne 50 mcg 1-03 tablet by ity o f tablet 00:00: mouth [place] 00 every Medical morning. Branch levothyroxi 2021-09 Yes [id number] 50ug Take 1 [facility] ne 50 mcg 1-03 tablet by ity o f tablet 00:00: mouth [place] 00 every Medical morning. Branch levothyroxi 2021-09 Yes [id number] 50ug Take 1 [facility] ne 50 mcg 1-03 tablet by ity o f tablet 00:00: mouth [place] 00 every Medical morning. Branch levothyroxi 2021-09 Yes [id number] 50ug Take 1 [facility] ne 50 mcg 1-03 tablet by ity o f tablet 00:00: mouth [place] 00 every Medical morning. Branch levothyroxi 2021-09 Yes [id number] 50ug Take 1 [facility] ne 50 mcg 1-03 tablet by ity o f tablet 00:00: mouth [place] 00 every Medical morning. Branch levothyroxi 2021-09 Yes [id number] 50ug Take 1 [facility] ne 50 mcg 1-03 tablet by ity o f tablet 00:00: mouth [place] 00 every Medical morning. Branch levothyroxi 2021-09 Yes [id number] 50ug Take 1 [facility] ne 50 mcg 1-03 tablet by ity o f tablet 00:00: mouth [place] 00 every Medical morning. Branch levothyroxi 2021-09 Yes [id number] 50ug Take 1 [facility] ne 50 mcg 1-03 tablet by ity o f tablet 00:00: mouth [place] 00 every Medical morning. Branch levothyroxi 2021-09 Yes [id number] 50ug Take 1 [facility] ne 50 mcg 1-03 tablet by ity o f tablet 00:00: mouth [place] 00 every Medical morning. Branch levothyroxi 2021-09 Yes [id number] 50ug Take 1 [facility] ne 50 mcg 1-03 tablet by ity o f tablet 00:00: mouth [place] 00 every Medical morning. Branch levothyroxi 2021-09 Yes [id number] 50ug Take 1 [facility] ne 50 mcg 1-03 tablet by ity o f tablet 00:00: mouth [place] 00 every Medical morning. Branch levothyroxi 2021-09 Yes [id number] 50ug Take 1 [facility] ne 50 mcg 1-03 tablet by ity o f tablet 00:00: mouth [place] 00 every Medical morning. Branch levothyroxi 2021-09 Yes [id number] 50ug Take 1 [facility] ne 50 mcg 1-03 tablet by ity o f tablet 00:00: mouth [place] 00 every Medical morning. Branch levothyroxi 2021-09 Yes [id number] 50ug Take 1 [facility] ne 50 mcg 1-03 tablet by ity o f tablet 00:00: mouth [place] 00 every Medical morning. Branch levothyroxi 2021-09 Yes [id number] 50ug Take 1 [facility] ne 50 mcg 1-03 tablet by ity o f tablet 00:00: mouth [place] 00 every Medical morning. Branch levothyroxi 2021-09 Yes [id number] 50ug Take 1 [facility] ne 50 mcg 1-03 tablet by ity o f tablet 00:00: mouth [place] 00 every Medical morning. Branch levothyroxi 2021-09 Yes [id number] 50ug Take 1 [facility] ne 50 mcg 1-03 tablet by ity o f tablet 00:00: mouth [place] 00 every Medical morning. Branch levothyroxi 2021-09 Yes [id number] 50ug Take 1 [facility] ne 50 mcg 1-03 tablet by ity o f tablet 00:00: mouth [place] 00 every Medical morning. Branch levothyroxi 2021-09 Yes [id number] 50ug Take 1 [facility] ne 50 mcg 1-03 tablet by ity o f tablet 00:00: mouth [place] 00 every Medical morning. Branch levothyroxi 2021-09 Yes [id number] 50ug Take 1 [facility] ne 50 mcg 1-03 tablet by ity o f tablet 00:00: mouth [place] 00 every Medical morning. Branch levothyroxi 2021-09 Yes [id number] 50ug Take 1 [facility] ne 50 mcg 1-03 tablet by ity o f tablet 00:00: mouth [place] 00 every Medical morning. Branch levothyroxi 2021-09 Yes [id number] 50ug Take 1 [facility] ne 50 mcg 1-03 tablet by ity o f tablet 00:00: mouth [place] 00 every Medical morning. Branch levothyroxi 2021-09 Yes [id number] 50ug Take 1 [facility] ne 50 mcg 1-03 tablet by ity o f tablet 00:00: mouth [place] 00 every Medical morning. Branch levothyroxi 2021-09 Yes [id number] 50ug Take 1 [facility] ne 50 mcg 1-03 tablet by ity o f tablet 00:00: mouth [place] 00 every Medical morning. Branch levothyroxi 2021-09 Yes [id number] 50ug Take 1 [facility] ne 50 mcg 1-03 tablet by ity o f tablet 00:00: mouth [place] 00 every Medical morning. Branch levothyroxi 2021-09 Yes [id number] 50ug Take 1 [facility] ne 50 mcg 1-03 tablet by ity o f tablet 00:00: mouth [place] 00 every Medical morning. Branch levothyroxi 2021-09 Yes [id number] 50ug Take 1 [facility] ne 50 mcg 1-03 tablet by ity o f tablet 00:00: mouth [place] 00 every Medical morning. Branch levothyroxi 2021-09 Yes [id number] 50ug Take 1 [facility] ne 50 mcg 1-03 tablet by ity o f tablet 00:00: mouth [place] 00 every Medical morning. Branch levothyroxi 2021-09 Yes [id number] 50ug Take 1 [facility] ne 50 mcg 1-03 tablet by ity o f tablet 00:00: mouth [place] 00 every Medical morning. [place] levothyroxi 2021-09 Yes [id number] 50ug Take 1 [facility] ne 50 mcg 1-03 tablet by ity o f tablet 00:00: mouth [place] 00 every Medical morning. [place] DOCUSATE 2021-09 Yes Take by [employer] [facility] SODIUM 1-01 mouth. ity of (COLACE 08:06: [place] ORAL) 37 [facility] DOCUSATE 2021-09 Yes Take by [employer] SODIUM 1-01 mouth. ity of (COLACE 08:06: [place] ORAL) 37 [facility] DOCUSATE 2021-09 Yes Take by [employer] SODIUM 1- mouth. ity of (COLACE 08:06: [place] ORAL) 37 [facility] DOCUSATE 2021-09 Yes Take by [employer] SODIUM 1- mouth. ity of (COLACE 08:06: [place] ORAL) 37 [facility] DOCUSATE 2021-09 Yes Take by [facility] s [...] Medical Branch DOCUSATE 2021-09 Yes [facility] [place] mouth. ity of (COLACE 08:06: [place] ORAL) 37 Medical Branch DOCUSATE 2021-09 Yes Take [facility] [place] SOD[facility]-01 mouth. ity of (COLACE 08:06: [place] ORAL) 37 Medical Branch DOCUSATE 2021-09 Yes Take [facility] [place] mouth. ity of (COLACE 08:06: [place] ORAL) 37 Medical Branch DOCUSATE 2021-09 Yes Take [facility] [place] mouth. ity of (COLACE 08:06: [place] ORAL) 37 Medical Branch DOCUSATE 2021-09 Yes Take by [facility] [place] SOD[facility]- mouth. ity of (COLACE 08:06: [place] ORAL) 37 Medical Branch DOCUSATE 2021-09 Yes Take [facility] [place]-01 mouth. ity of (COLACE 08:06: [place] ORAL) 37 Medical Branch DOCUSATE 2021-09 Yes Take [facility] [place]- mouth. ity of (COLACE 08:06: [place] ORAL) 37 Medical Branch diltiazem 2021-09 Yes [id number] 120mg Take 1 [facility] nivers 120 mg 24 1- capsule by ity of hr capsule 00:00: mouth in [place] as 00 the Medical morning Branch and 1 capsule in the evening. fluticasone 2021-09 Yes [id number] 2{puff} Inhale 2 [facility] propionate 1-01 Puffs ity of (FLOVENT 00:00: every 12 [place] HFA) 110 00 (twelve) Medical mcg/actuati hours. Branch on inhaler Rinse mouth after each use. levothyroxi 2021-09 Yes [id number] 50ug Take 1 [facility] ne 50 mcg -01 tablet by ity o f tablet 00:00: mouth [place] 00 every Medical morning. Branch metformin 2021-09 Yes [id number] 500mg Take 1 U nivers ER 500 mg 1-01 tablet by ity o f 24 hr 00:00: mouth [place] tablet 00 daily with Medical breakfast. Branch pantoprazol 2021-09 Yes [id number] 40mg Take 1 [facility] e 40 mg EC - tablet by ity of tablet 00:00: mouth in [place] 00 the Medical morning. Branch pregabalin 2021-09 Yes [id number] 150mg Take 1 [facility] 150 mg 1-01 capsule by ity of capsule 00:00: mouth in [place] 00 the Medical morning Branch and 1 capsule at noon and 1 capsule in the evening. rosuvastati 2021-09 Yes [id number] 10mg Take 1 [facility] n 10 mg 1-01 tablet by ity of tablet 00:00: mouth at [place] [address] bedtime. Medical Branch SUMAtriptan 2021-09 Yes [id number] 50mg Take 1 [facility] 50 mg 1-01 tablet by ity of tablet 00:00: mouth as [place] 00 needed for Medical Migraine. Branch diltiazem 2021-09 Yes [id number] 120mg Take 1 U nivers 120 mg 24 1- capsule by ity of hr capsule 00:00: mouth in [place] as 00 the Medical morning Branch and 1 capsule in the evening. fluticasone 2021-09 Yes [id number] 2{puff} Inhale 2 [facility] propionate 1-01 Puffs ity of (FLOVENT 00:00: every 12 [place] HFA) 110 00 (twelve) Medical mcg/actuati hours. Branch on inhaler Rinse mouth after each use. levothyroxi 2021-09 Yes [id number] 50ug Take 1 [facility] ne 50 mcg 1-01 tablet by ity o f tablet 00:00: mouth [place] 00 every Medical morning. Branch metformin 2021-09 Yes [id number] 500mg Take 1 U nivers ER 500 mg 1-01 tablet by ity o f 24 hr 00:00: mouth [place] tablet 00 daily with Medical breakfast. Branch pantoprazol 2021-09 Yes [id number] 40mg Take 1 [facility] e 40 mg EC 1-01 tablet by ity of tablet 00:00: mouth in [place] 00 the Medical morning. Branch pregabalin 2021-09 Yes [id number] 150mg Take 1 [facility] 150 mg 1-01 capsule by ity of capsule 00:00: mouth in [place] 00 the Medical morning Branch and 1 capsule at noon and 1 capsule in the evening. rosuvastati 2021-09 Yes [id number] 10mg Take 1 [facility] n 10 mg 1-01 tablet by ity of tablet 00:00: mouth at [place] [address] bedtime. Medical Branch SUMAtriptan 2021-09 Yes [id number] 50mg Take 1 [facility] 50 mg 1-01 tablet by ity of tablet 00:00: mouth as [place] 00 needed for Medical Migraine. Branch diltiazem 2021-09 Yes [id number] 120mg Take 1 U nivers 120 mg 24 1-01 capsule by ity of hr capsule 00:00: mouth in [place] as 00 the Medical morning Branch and 1 capsule in the evening. fluticasone 2021-09 Yes [id number] 2{puff} Inhale 2 [facility] propionate 1-01 Puffs ity of (FLOVENT 00:00: every 12 [place] HFA) 110 00 (twelve) Medical mcg/actuati hours. Branch on inhaler Rinse mouth after each use. metformin 2021-09 Yes [id number] 500mg Take 1 U nivers ER 500 mg 1-01 tablet by ity o f 24 hr 00:00: mouth [place] tablet 00 daily with Medical breakfast. Branch pantoprazol 2021-09 Yes [id number] 40mg Take 1 [facility] e 40 mg EC 1-01 tablet by ity of tablet 00:00: mouth in [place] 00 the Medical morning. Branch pregabalin 2021-09 Yes [id number] 150mg Take 1 [facility] 150 mg 1-01 capsule by ity of capsule 00:00: mouth in [place] 00 the Medical morning Branch and 1 capsule at noon and 1 capsule in the evening. rosuvastati 2021-09 Yes [id number] 10mg Take 1 [facility] n 10 mg 1-01 tablet by ity of tablet 00:00: mouth at [place] 00 bedtime. Medical Branch SUMAtriptan 2021-09 Yes [id number] 50mg Take 1 [facility] 50 mg 1-01 tablet by ity of tablet 00:00: mouth as [place] 00 needed for Medical Migraine. Branch diltiazem 2021-09 Yes [id number] 120mg Take 1 U nivers 120 mg 24 1-01 capsule by ity of hr capsule 00:00: mouth in [place] as 00 the Medical morning Branch and 1 capsule in the evening. fluticasone 2021-09 Yes [id number] 2{puff} Inhale 2 [facility] propionate 1-01 Puffs ity of (FLOVENT 00:00: every 12 [place] HFA) 110 00 (twelve) Medical mcg/actuati hours. Branch on inhaler Rinse mouth after each use. metformin 2021-09 Yes [id number] 500mg Take 1 U nivers ER 500 mg 1-01 tablet by ity o f 24 hr 00:00: mouth [place] tablet 00 daily with Medical breakfast. Branch pantoprazol 2021-09 Yes [id number] 40mg Take 1 [facility] e 40 mg EC 1-01 tablet by ity of tablet 00:00: mouth in [place] 00 the Medical morning. Branch pregabalin 2021-09 Yes [id number] 150mg Take 1 [facility] 150 mg 1-01 capsule by ity of capsule 00:00: mouth in [place] 00 the Medical morning Branch and 1 capsule at noon and 1 capsule in the evening. rosuvastati 2021-09 Yes [id number] 10mg Take 1 [facility] n 10 mg 1-01 tablet by ity of tablet 00:00: mouth at [place] 00 bedtime. Medical Branch SUMAtriptan 2021-09 Yes [id number] 50mg Take 1 [facility] 50 mg 1-01 tablet by ity of tablet 00:00: mouth as [place] 00 needed for Medical Migraine. Branch diltiazem 2021-09 Yes [id number] 120mg Take 1 U nivers 120 mg 24 1-01 capsule by ity of hr capsule 00:00: mouth in [facility] as 00 the Medical morning Branch and 1 capsule in the evening. fluticasone 2021-09 Yes [id number] 2{puff} Inhale 2 [facility] propionate 1-01 Puffs ity of (FLOVENT 00:00: every 12 [place] HFA) 110 00 (twelve) Medical mcg/actuati hours. Branch on inhaler Rinse mouth after each use. metformin 2021-09 Yes [id number] 500mg Take 1 U nivers ER 500 mg 1-01 tablet by ity o f 24 hr 00:00: mouth [place] tablet 00 daily with Medical breakfast. Branch pantoprazol 2021-09 Yes [id number] 40mg Take 1 [facility] e 40 mg EC 1-01 tablet by ity of tablet 00:00: mouth in [place] 00 the Medical morning. Branch pregabalin 2021-09 Yes [id number] 150mg Take 1 [facility] 150 mg 1-01 capsule by ity of capsule 00:00: mouth in [place] 00 the Medical morning Branch and 1 capsule at noon and 1 capsule in the evening. rosuvastati 2021-09 Yes [id number] 10mg Take 1 [facility] n 10 mg 1-01 tablet by ity of tablet 00:00: mouth at [place] 00 bedtime. Medical Branch SUMAtriptan 2021-09 Yes [id number] 50mg Take 1 [facility] 50 mg 1-01 tablet by ity of tablet 00:00: mouth as [place] 00 needed for Medical Migraine. Branch diltiazem 2021-09 Yes [id number] 120mg Take 1 U nivers 120 mg 24 1-01 capsule by ity of hr capsule 00:00: mouth in [place] as 00 the Medical morning Branch and 1 capsule in the evening. fluticasone 2021-09 Yes [id number] 2{puff} Inhale 2 [facility] propionate 1-01 Puffs ity of (FLOVENT 00:00: every 12 [facility]) 110 00 (twelve) Medical mcg/actuati hours. Branch on inhaler Rinse mouth after each use. metformin 2021-09 Yes [id number] 500mg Take 1 U nivers ER 500 mg 1-01 tablet by ity o f 24 hr 00:00: mouth [place] tablet 00 daily with Medical breakfast. Branch pantoprazol 2021-09 Yes [id number] 40mg Take 1 [facility] e 40 mg EC 1-01 tablet by ity of tablet 00:00: mouth in [place] 00 the Medical morning. Branch pregabalin 2021-09 Yes [id number] 150mg Take 1 [facility] 150 mg 1-01 capsule by ity of capsule 00:00: mouth in [place] 00 the Medical morning Branch and 1 capsule at noon and 1 capsule in the evening. rosuvastati 2021-09 Yes [id number] 10mg Take 1 [facility] n 10 mg 1-01 tablet by ity of tablet 00:00: mouth at [place] 00 bedtime. Medical Branch SUMAtriptan 2021-09 Yes [id number] 50mg Take 1 [facility] 50 mg 1-01 tablet by ity of tablet 00:00: mouth as [place] 00 needed for Medical Migraine. Branch diltiazem 2021-09 Yes [id number] 120mg Take 1 U nivers 120 mg 24 1-01 capsule by ity of hr capsule 00:00: mouth in [place] as 00 the Medical morning Branch and 1 capsule in the evening. fluticasone 2021-09 Yes [id number] 2{puff} Inhale 2 [facility] propionate 1-01 Puffs ity of (FLOVENT 00:00: every 12 [facility]) 110 00 (twelve) Medical mcg/actuati hours. Branch on inhaler Rinse mouth after each use. metformin 2021-09 Yes [id number] 500mg Take 1 U nivers ER 500 mg 1-01 tablet by ity o f 24 hr 00:00: mouth [place] tablet 00 daily with Medical breakfast. Branch pantoprazol 2021-09 Yes [id number] 40mg Take 1 [facility] e 40 mg EC 1-01 tablet by ity of tablet 00:00: mouth in [place] 00 the Medical morning. Branch pregabalin 2021-09 Yes [id number] 150mg Take 1 [facility] 150 mg 1-01 capsule by ity of capsule 00:00: mouth in [place] 00 the Medical morning Branch and 1 capsule at noon and 1 capsule in the evening. rosuvastati 2021-09 Yes [id number] 10mg Take 1 [facility] n 10 mg 1-01 tablet by ity of tablet 00:00: mouth at [place] [address] bedtime. Medical Branch SUMAtriptan 2021-09 Yes [id number] 50mg Take 1 [facility] 50 mg 1-01 tablet by ity of tablet 00:00: mouth as [place] 00 needed for Medical Migraine. Branch diltiazem 2021-09 Yes [id number] 120mg Take 1 U nivers 120 mg 24 1-01 capsule by ity of hr capsule 00:00: mouth in [facility] 00 the Medical morning Branch and 1 capsule in the evening. fluticasone 2021-09 Yes [id number] 2{puff} Inhale 2 [facility] propionate 1-01 Puffs ity of (FLOVENT 00:00: every 12 [facility]) 110 00 (twelve) Medical mcg/actuati hours. Branch on inhaler Rinse mouth after each use. metformin 2021-09 Yes [id number] 500mg Take 1 U nivers ER 500 mg 1-01 tablet by ity o f 24 hr 00:00: mouth [place] tablet 00 daily with Medical breakfast. Branch pantoprazol 2021-09 Yes [id number] 40mg Take 1 [facility] e 40 mg EC 1-01 tablet by ity of tablet 00:00: mouth in [place] 00 the Medical morning. Branch pregabalin 2021-09 Yes [id number] 150mg Take 1 [facility] 150 mg 1-01 capsule by ity of capsule 00:00: mouth in [place] 00 the Medical morning Branch and 1 capsule at noon and 1 capsule in the evening. rosuvastati 2021-09 Yes [id number] 10mg Take 1 [facility] n 10 mg 1-01 tablet by ity of tablet 00:00: mouth at [place] 00 bedtime. Medical Branch SUMAtriptan 2021-09 Yes [id number] 50mg Take 1 [facility] 50 mg 1-01 tablet by ity of tablet 00:00: mouth as [place] 00 needed for Medical Migraine. Branch diltiazem 2021-09 Yes [id number] 120mg Take 1 U nivers 120 mg 24 1-01 capsule by ity of hr capsule 00:00: mouth in [place] as 00 the Medical morning Branch and 1 capsule in the evening. fluticasone 2021-09 Yes [id number] 2{puff} Inhale 2 [facility] propionate 1-01 Puffs ity of (FLOVENT 00:00: every 12 [place] HFA) 110 00 (twelve) Medical mcg/actuati hours. Branch on inhaler Rinse mouth after each use. metformin 2021-09 Yes [id number] 500mg Take 1 U nivers ER 500 mg 1-01 tablet by ity o f 24 hr 00:00: mouth [place] tablet 00 daily with Medical breakfast. Branch pantoprazol 2021-09 Yes [id number] 40mg Take 1 [facility] e 40 mg EC 1-01 tablet by ity of tablet 00:00: mouth in [place] 00 the Medical morning. Branch pregabalin 2021-09 Yes [id number] 150mg Take 1 [facility] 150 mg 1-01 capsule by ity of capsule 00:00: mouth in [place] 00 the Medical morning Branch and 1 capsule at noon and 1 capsule in the evening. rosuvastati 2021-09 Yes [id number] 10mg Take 1 [facility] n 10 mg 1-01 tablet by ity of tablet 00:00: mouth at [place] 00 bedtime. Medical Branch SUMAtriptan 2021-09 Yes [id number] 50mg Take 1 [facility] 50 mg 1-01 tablet by ity of tablet 00:00: mouth as [place] 00 needed for Medical Migraine. Branch diltiazem 2021-09 Yes [id number] 120mg Take 1 U nivers 120 mg 24 1-01 capsule by ity of hr capsule 00:00: mouth in [place] as 00 the Medical morning Branch and 1 capsule in the evening. fluticasone 2021-09 Yes [id number] 2{puff} Inhale 2 [facility] propionate 1-01 Puffs ity of (FLOVENT 00:00: every 12 [facility]) 110 00 (twelve) Medical mcg/actuati hours. Branch on inhaler Rinse mouth after each use. metformin 2021-09 Yes [id number] 500mg Take 1 U nivers ER 500 mg 1-01 tablet by ity o f 24 hr 00:00: mouth [place] tablet 00 daily with Medical breakfast. Branch pantoprazol 2021-09 Yes [id number] 40mg Take 1 [facility] e 40 mg EC 1-01 tablet by ity of tablet 00:00: mouth in [place] 00 the Medical morning. Branch pregabalin 2021-09 Yes [id number] 150mg Take 1 [facility] 150 mg 1-01 capsule by ity of capsule 00:00: mouth in [place] 00 the Medical morning Branch and 1 capsule at noon and 1 capsule in the evening. rosuvastati 2021-09 Yes [id number] 10mg Take 1 [facility] n 10 mg 1-01 tablet by ity of tablet 00:00: mouth at [place] 00 bedtime. Medical Branch SUMAtriptan 2021-09 Yes [id number] 50mg Take 1 [facility] 50 mg 1-01 tablet by ity of tablet 00:00: mouth as [place] 00 needed for Medical Migraine. Branch diltiazem 2021-09 Yes [id number] 120mg Take 1 U nivers 120 mg 24 1-01 capsule by ity of hr capsule 00:00: mouth in [place] as 00 the Medical morning Branch and 1 capsule in the evening. fluticasone 2021-09 Yes [id number] 2{puff} Inhale 2 [facility] propionate 1-01 Puffs ity of (FLOVENT 00:00: every 12 [place] HFA) 110 00 (twelve) Medical mcg/actuati hours. Branch on inhaler Rinse mouth after each use. metformin 2021-09 Yes [id number] 500mg Take 1 U nivers ER 500 mg 1-01 tablet by ity o f 24 hr 00:00: mouth [place] tablet 00 daily with Medical breakfast. Branch pantoprazol 2021-09 Yes [id number] 40mg Take 1 [facility] e 40 mg EC 1-01 tablet by ity of tablet 00:00: mouth in [place] 00 the Medical morning. Branch pregabalin 2021-09 Yes [id number] 150mg Take 1 [facility] 150 mg 1-01 capsule by ity of capsule 00:00: mouth in [place] 00 the Medical morning Branch and 1 capsule at noon and 1 capsule in the evening. rosuvastati 2021-09 Yes [id number] 10mg Take 1 [facility] n 10 mg 1-01 tablet by ity of tablet 00:00: mouth at [place] [address] bedtime. Medical Branch SUMAtriptan 2021-09 Yes [id number] 50mg Take 1 [facility] 50 mg 1-01 tablet by ity of tablet 00:00: mouth as [place] 00 needed for Medical Migraine. Branch diltiazem 2021-09 Yes [id number] 120mg Take 1 U nivers 120 mg 24 1-01 capsule by ity of hr capsule 00:00: mouth in [place] as 00 the Medical morning Branch and 1 capsule in the evening. fluticasone 2021-09 Yes [id number] 2{puff} Inhale 2 [facility] propionate 1-01 Puffs ity of (FLOVENT 00:00: every 12 [place] HFA) 110 00 (twelve) Medical mcg/actuati hours. Branch on inhaler Rinse mouth after each use. metformin 2021-09 Yes [id number] 500mg Take 1 U nivers ER 500 mg 1-01 tablet by ity o f 24 hr 00:00: mouth [place] tablet 00 daily with Medical breakfast. Branch pantoprazol 2021-09 Yes [id number] 40mg Take 1 [facility] e 40 mg EC 1-01 tablet by ity of tablet 00:00: mouth in [place] 00 the Medical morning. Branch pregabalin 2021-09 Yes [id number] 150mg Take 1 [facility] 150 mg 1-01 capsule by ity of capsule 00:00: mouth in [place] 00 the Medical morning Branch and 1 capsule at noon and 1 capsule in the evening. rosuvastati 2021-09 Yes [id number] 10mg Take 1 [facility] n 10 mg 1-01 tablet by ity of tablet 00:00: mouth at [place] [address] bedtime. Medical Branch SUMAtriptan 2021-09 Yes [id number] 50mg Take 1 [facility] 50 mg 1-01 tablet by ity of tablet 00:00: mouth as [place] 00 needed for Medical Migraine. Branch diltiazem 2021-09 Yes [id number] 120mg Take 1 U nivers 120 mg 24 1-01 capsule by ity of hr capsule 00:00: mouth in [place] as 00 the Medical morning Branch and 1 capsule in the evening. fluticasone 2021-09 Yes [id number] 2{puff} Inhale 2 [facility] propionate 1-01 Puffs ity of (FLOVENT 00:00: every 12 [place] HF) 110 00 (twelve) Medical mcg/actuati hours. Branch on inhaler Rinse mouth after each use. metformin 2021-09 Yes [id number] 500mg Take 1 U nivers ER 500 mg 1-01 tablet by ity o f 24 hr 00:00: mouth [place] tablet 00 daily with Medical breakfast. Branch pantoprazol 2021-09 Yes [id number] 40mg Take 1 [facility] e 40 mg EC 1-01 tablet by ity of tablet 00:00: mouth in [place] 00 the Medical morning. Branch pregabalin 2021-09 Yes [id number] 150mg Take 1 [facility] 150 mg 1-01 capsule by ity of capsule 00:00: mouth in [place] 00 the Medical morning Branch and 1 capsule at noon and 1 capsule in the evening. rosuvastati 2021-09 Yes [id number] 10mg Take 1 [facility] n 10 mg 1-01 tablet by ity of tablet 00:00: mouth at [place] 00 bedtime. Medical Branch SUMAtriptan 2021-09 Yes [id number] 50mg Take 1 [facility] 50 mg 1-01 tablet by ity of tablet 00:00: mouth as [place] 00 needed for Medical Migraine. Branch diltiazem 2021-09 Yes [id number] 120mg Take 1 U nivers 120 mg 24 1-01 capsule by ity of hr capsule 00:00: mouth in [facility] as 00 the Medical morning Branch and 1 capsule in the evening. fluticasone 2021-09 Yes [id number] 2{puff} Inhale 2 [facility] propionate 1-01 Puffs ity of (FLOVENT 00:00: every 12 [facility]) 110 00 (twelve) Medical mcg/actuati hours. Branch on inhaler Rinse mouth after each use. metformin 2021-09 Yes [id number] 500mg Take 1 U nivers ER 500 mg 1-01 tablet by ity o f 24 hr 00:00: mouth [place] tablet 00 daily with Medical breakfast. Branch pantoprazol 2021-09 Yes [id number] 40mg Take 1 [facility] e 40 mg EC 1-01 tablet by ity of tablet 00:00: mouth in [place] 00 the Medical morning. Branch rosuvastati 2021-09 Yes [id number] 10mg Take 1 [facility] n 10 mg 1-01 tablet by ity of tablet 00:00: mouth at [place] 00 bedtime. Medical Branch SUMAtriptan 2021-09 Yes [id number] 50mg Take 1 [facility] 50 mg 1-01 tablet by ity of tablet 00:00: mouth as [place] 00 needed for Medical Migraine. Branch diltiazem 2021-09 Yes [id number] 120mg Take 1 U nivers 120 mg 24 1-01 capsule by ity of hr capsule 00:00: mouth in [place] as 00 the Medical morning Branch and 1 capsule in the evening. fluticasone 2021-09 Yes [id number] 2{puff} Inhale 2 [facility] propionate 1-01 Puffs ity of (FLOVENT 00:00: every 12 [place] HFA) 110 00 (twelve) Medical mcg/actuati hours. Branch on inhaler Rinse mouth after each use. metformin 2021-09 Yes [id number] 500mg Take 1 U nivers ER 500 mg 1-01 tablet by ity o f 24 hr 00:00: mouth [place] tablet 00 daily with Medical breakfast. Branch pantoprazol 2021-09 Yes [id number] 40mg Take 1 [facility] e 40 mg EC 1-01 tablet by ity of tablet 00:00: mouth in [place] 00 the Medical morning. Branch rosuvastati 2021-09 Yes [id number] 10mg Take 1 [facility] n 10 mg 1-01 tablet by ity of tablet 00:00: mouth at [place] [address] bedtime. Medical Branch SUMAtriptan 2021-09 Yes [id number] 50mg Take 1 [facility] 50 mg 1-01 tablet by ity of tablet 00:00: mouth as [place] 00 needed for Medical Migraine. Branch diltiazem 2021-09 Yes [id number] 120mg Take 1 U nivers 120 mg 24 1-01 capsule by ity of hr capsule 00:00: mouth in [place] 00 the Medical morning Branch and 1 capsule in the evening. fluticasone 2021-09 Yes [id number] 2{puff} Inhale 2 [facility] propionate 1-01 Puffs ity of (FLOVENT 00:00: every 12 [place] HFA) 110 00 (twelve) Medical mcg/actuati hours. Branch on inhaler Rinse mouth after each use. metformin 2021-09 Yes [id number] 500mg Take 1 U nivers ER 500 mg 1-01 tablet by ity o f 24 hr 00:00: mouth [place] tablet 00 daily with Medical breakfast. Branch pantoprazol 2021-09 Yes [id number] 40mg Take 1 [facility] e 40 mg EC 1-01 tablet by ity of tablet 00:00: mouth in [place] 00 the Medical morning. Branch rosuvastati 2021-09 Yes [id number] 10mg Take 1 [facility] n 10 mg 1-01 tablet by ity of tablet 00:00: mouth at [place] [address] bedtime. Medical Branch SUMAtriptan 2021-09 Yes [id number] 50mg Take 1 [facility] 50 mg 1-01 tablet by ity of tablet 00:00: mouth as [place] 00 needed for Medical Migraine. Branch diltiazem 2021-09 Yes [id number] 120mg Take 1 U nivers 120 mg 24 1- capsule by ity of hr capsule 00:00: mouth in [place] as 00 the Medical morning Branch and 1 capsule in the evening. fluticasone 2021-09 Yes [id number] 2{puff} Inhale 2 [facility] propionate 1-01 Puffs ity of (FLOVENT 00:00: every 12 [place] HFA) 110 00 (twelve) Medical mcg/actuati hours. Branch on inhaler Rinse mouth after each use. metformin 2021-09 Yes [id number] 500mg Take 1 U nivers ER 500 mg 1-01 tablet by ity o f 24 hr 00:00: mouth [place] tablet 00 daily with Medical breakfast. Branch pantoprazol 2021-09 Yes [id number] 40mg Take 1 [facility] e 40 mg EC 1-01 tablet by ity of tablet 00:00: mouth in [place] 00 the Medical morning. Branch rosuvastati 2021-09 Yes [id number] 10mg Take 1 [facility] n 10 mg 1-01 tablet by ity of tablet 00:00: mouth at [place] [address] bedtime. Medical Branch SUMAtriptan 2021-09 Yes [id number] 50mg Take 1 [facility] 50 mg 1-01 tablet by ity of tablet 00:00: mouth as [place] 00 needed for Medical Migraine. Branch diltiazem 2021-09 Yes [id number] 120mg Take 1 U nivers 120 mg 24 1-01 capsule by ity of hr capsule 00:00: mouth in [place] 00 the Medical morning Branch and 1 capsule in the evening. fluticasone 2021-09 Yes [id number] 2{puff} Inhale 2 [facility] propionate 1-01 Puffs ity of (FLOVENT 00:00: every 12 [place] HFA) 110 00 (twelve) Medical mcg/actuati hours. Branch on inhaler Rinse mouth after each use. metformin 2021-09 Yes [id number] 500mg Take 1 U nivers ER 500 mg 1-01 tablet by ity o f 24 hr 00:00: mouth [place] tablet 00 daily with Medical breakfast. Branch pantoprazol 2021-09 Yes [id number] 40mg Take 1 [facility] 40 mg EC 1-01 tablet by [facility] of tablet 00:00: mouth in [place] 00 the Medical morning. Branch rosuvastati 2021-09 Yes [id number] 10mg Take 1 [facility] n 10 mg 1-01 tablet by [facility] of tablet 00:00: mouth at [place] 00 bedtime. Medical Branch SUMAtriptan 2021-09 Yes [id number] 50mg Take 1 [facility] 50 mg 1-01 tablet by it[facility] of tablet 00:00: mouth as [place] 00 needed for Medical Migraine. Branch diltiazem 2021-09 Yes [id number] 120mg Take 1 [facility] 120 mg 24 1-01 capsule by it[facility] of hr capsule 00:00: mouth in [place] 00 the Medical morning Branch and 1 capsule in the evening. fluticasone 2021-09 Yes [id number] 2{puff} Inhale 2 [facility] propionate 1-01 Puffs ity of (FLOVENT 00:00: every 12 [place] [facility]FA) 110 00 (twelve) Medical mcg/actuati hours. Branch on inhaler Rinse mouth after each use. metformin 2021-09 Yes [id number] 500mg Take 1 [facility] nivers ER 500 mg 1-01 tablet by ity o f 24 hr 00:00: mouth [place] tablet 00 daily with Medical breakfast. Branch pantoprazol 2021-09 Yes [id number] 40mg Take 1 [facility] e 40 mg EC 1-01 tablet by ity of tablet 00:00: mouth in [place] 00 the Medical morning. Branch rosuvastati 2021-09 Yes [id number] 10mg Take 1 [facility] n 10 mg 1-01 tablet by ity of tablet 00:00: mouth at [place] 00 bedtime. Medical Branch SUMAtriptan 2021-09 Yes [id number] 50mg Take 1 [facility] 50 mg 1-01 tablet by ity of tablet 00:00: mouth as [place] 00 needed for Medical Migraine. Branch diltiazem 2021-09 Yes [id number] 120mg Take 1 [facility] 120 mg 24 1-01 capsule by ity of hr capsule 00:00: mouth in [place] 00 the Medical morning Branch and 1 capsule in the evening. fluticasone 2021-09 Yes [id number] 2{puff} Inhale 2 [facility] propionate 1-01 Puffs ity of (FLOVENT 00:00: every 12 [place] HFA) 110 00 (twelve) Medical mcg/actuati hours. Branch on inhaler Rinse mouth after each use. metformin 2021-09 Yes [id number] 500mg Take 1 [facility] n[facility] ER 500 mg 1-01 tablet by ity o f 24 hr 00:00: mouth [place] tablet 00 daily with Medical breakfast. Branch pantoprazol 2021-09 Yes [id number] 40mg Take 1 [facility] e 40 mg EC 1-01 tablet by ity of tablet 00:00: mouth in [place] 00 the Medical morning. Branch rosuvastati 2021-09 Yes [id number] 10mg Take 1 [facility] n 10 mg 1-01 tablet by ity of tablet 00:00: mouth at [place] 00 bedtime. Medical Branch SUMAtriptan 2021-09 Yes [id number] 50mg Take 1 [facility] 50 mg 1-01 tablet by ity of tablet 00:00: mouth as [place] 00 needed for Medical Migraine. Branch diltiazem 2021-09 Yes [id number] 120mg Take 1 [facility] 120 mg 24 1-01 capsule by ity of hr capsule 00:00: mouth in [place] 00 the Medical morning Branch and 1 capsule in the evening. fluticasone 2021-09 Yes [id number] 2{puff} Inhale 2 [facility] propionate 1-01 Puffs ity of (FLOVENT 00:00: every 12 [place] HFA) 110 00 (twelve) Medical mcg/actuati hours. Branch on inhaler Rinse mouth after each use. metformin 2021-09 Yes [id number] 500mg Take 1 [facility] n[facility] ER 500 mg 1-01 tablet by ity o f 24 hr 00:00: mouth [place] tablet 00 daily with Medical breakfast. Branch pantoprazol 2021-09 Yes [id number] 40mg Take 1 [facility] 40 mg EC 1-01 tablet by ity of tablet 00:00: mouth in [place] 00 the Medical morning. Branch rosuvastati 2021-09 Yes [id number] 10mg Take 1 [facility] n 10 mg 1-01 tablet by ity of tablet 00:00: mouth at [place] 00 bedtime. Medical Branch SUMAtriptan 2021-09 Yes [id number] 50mg Take 1 [facility] 50 mg 1-01 tablet by ity of tablet 00:00: mouth as [place] 00 needed for Medical Migraine. Branch diltiazem 2021-09 Yes [id number] 120mg Take 1 [facility] 120 mg 24 1-01 capsule by ity of hr capsule 00:00: mouth in [place] 00 the Medical morning Branch and 1 capsule in the evening. fluticasone 2021-09 Yes [id number] 2{puff} Inhale 2 [facility] propionate 1-01 Puffs ity of (FLOVENT 00:00: every 12 [place] HFA) 110 00 (twelve) Medical mcg/actuati hours. Branch on inhaler Rinse mouth after each use. metformin 2021-09 Yes [id number] 500mg Take 1 [facility] nivers ER 500 mg 1-01 tablet by ity o f 24 hr 00:00: mouth [place] tablet 00 daily with Medical breakfast. Branch pantoprazol 2021-09 Yes [id number] 40mg Take 1 [facility] e 40 mg EC 1-01 tablet by ity of tablet 00:00: mouth in [place] 00 the Medical morning. Branch rosuvastati 2021-09 Yes [id number] 10mg Take 1 [facility] n 10 mg 1-01 tablet by ity of tablet 00:00: mouth at [place] 00 bedtime. Medical Branch SUMAtriptan 2021-09 Yes [id number] 50mg Take 1 [facility] 50 mg 1-01 tablet by ity of tablet 00:00: mouth as [place] 00 needed for Medical Migraine. Branch diltiazem 2021-09 Yes [id number] 120mg Take 1 [facility]ivers 120 mg 24 1-01 capsule by ity of hr capsule 00:00: mouth in [place] 00 the Medical morning Branch and 1 capsule in the evening. fluticasone 2021-09 Yes [id number] 2{puff} Inhale 2 [facility] propionate 1-01 Puffs ity of (FLOVENT 00:00: every 12 [place] HFA) 110 00 (twelve) Medical mcg/actuati hours. Branch on inhaler Rinse mouth after each use. metformin 2021-09 Yes [id number] 500mg Take 1 [facility] nivers ER 500 mg 1-01 tablet by ity o f 24 hr 00:00: mouth [place] tablet 00 daily with Medical breakfast. Branch pantoprazol 2021-09 Yes [id number] 40mg Take 1 [facility] e 40 mg EC 1-01 tablet by ity of tablet 00:00: mouth in [place] 00 the Medical morning. Branch rosuvastati 2021-09 Yes [id number] 10mg Take 1 [facility] n 10 mg 1-01 tablet by ity of tablet 00:00: mouth at [place] 00 bedtime. Medical Branch SUMAtriptan 2021-09 Yes [id number] 50mg Take 1 [facility] 50 mg 1-01 tablet by ity of tablet 00:00: mouth as [place] 00 needed for Medical Migraine. Branch diltiazem 2021-09 Yes [id number] 120mg Take 1 [facility] 120 mg 24 1-01 capsule by ity of hr capsule 00:00: mouth in [place] 00 the Medical morning Branch and 1 capsule in the evening. fluticasone 2021-09 Yes [id number] 2{puff} Inhale 2 [facility] propionate 1-01 Puffs ity of (FLOVENT 00:00: every 12 [place] HFA) 110 00 (twelve) Medical mcg/actuati hours. Branch on inhaler Rinse mouth after each use. metformin 2021-09 Yes [id number] 500mg Take 1 [facility] nivers ER 500 mg 1-01 tablet by ity o f 24 hr 00:00: mouth [place] tablet 00 daily with Medical breakfast. Branch pantoprazol 2021-09 Yes [id number] 40mg Take 1 [facility] e 40 mg EC 1-01 tablet by ity of tablet 00:00: mouth in [place] 00 the Medical morning. Branch rosuvastati 2021-09 Yes [id number] 10mg Take 1 [facility] n 10 mg 1-01 tablet by ity of tablet 00:00: mouth at [place] 00 bedtime. Medical Branch SUMAtriptan 2021-09 Yes [id number] 50mg Take 1 [facility] 50 mg 1-01 tablet by ity of tablet 00:00: mouth as [place] 00 needed for Medical Migraine. Branch diltiazem 2021-09 Yes [id number] 120mg Take 1 [facility] nivers 120 mg 24 1-01 capsule by ity of hr capsule 00:00: mouth in [place] 00 the Medical morning Branch and 1 capsule in the evening. fluticasone 2021-09 Yes [id number] 2{puff} Inhale 2 [facility] propionate 1-01 Puffs ity of (FLOVENT 00:00: every 12 [place] HF) 110 00 (twelve) Medical mcg/actuati hours. Branch on inhaler Rinse mouth after each use. metformin 2021-09 Yes [id number] 500mg Take 1 [facility] nivers ER 500 mg 1-01 tablet by ity o f 24 hr 00:00: mouth [place] tablet 00 daily with Medical breakfast. Branch pantoprazol 2021-09 Yes [id number] 40mg Take 1 [facility] e 40 mg EC 1-01 tablet by ity of tablet 00:00: mouth in [place] 00 the Medical morning. Branch rosuvastati 2021-09 Yes [id number] 10mg Take 1 [facility] n 10 mg 1-01 tablet by ity of tablet 00:00: mouth at [place] 00 bedtime. Medical Branch SUMAtriptan 2021-09 Yes [id number] 50mg Take 1 [facility] 50 mg 1-01 tablet by ity of tablet 00:00: mouth as [place] 00 needed for Medical Migraine. Branch diltiazem 2021-09 Yes [id number] 120mg Take 1 [facility] nivers 120 mg 24 1-01 capsule by ity of hr capsule 00:00: mouth in [place] as 00 the Medical morning Branch and 1 capsule in the evening. fluticasone 2021-09 Yes [id number] 2{puff} Inhale 2 [facility] propionate 1-01 Puffs [facility] ([facility] 00:00[facility] [place] [facility] (twelve) Medical mcg/actuati hours. Branch on inhaler Rinse mouth after each use. metformin 2021-09 Yes [id number] 500mg Take 1 [facility] nivers ER 500 mg 1-01 tablet by ity o f 24 hr 00:00: mouth [place] tablet 00 daily with Medical breakfast. Branch pantoprazol 2021-09 Yes [id number] 40mg Take 1 [facility] e 40 mg EC 1-01 tablet by ity of tablet 00:00: mouth in [place] 00 the Medical morning. Branch rosuvastati 2021-09 Yes [id number] 10mg Take 1 [facility] n 10 mg 1-01 tablet by ity of tablet 00:00: mouth at [place] [address] bedtime. Medical Branch SUMAtriptan 2021-09 Yes [id number] 50mg Take 1 [facility] 50 mg 1-01 tablet by ity of tablet 00:00: mouth as [place] 00 needed for Medical Migraine. Branch diltiazem 2021-09 Yes [id number] 120mg Take 1 [facility] nivers 120 mg 24 1-01 capsule by ity of hr capsule 00:00: mouth in [place] 00 the Medical morning Branch and 1 capsule in the evening. fluticasone 2021-09 Yes [id number] 2{puff} Inhale 2 [facility] propionate 1-01 Puffs ity of (FLOVENT 00:00: every 12 [facility]) 110 00 (twelve) Medical mcg/actuati hours. Branch on inhaler Rinse mouth after each use. rosuvastati 2021-09 Yes [id number] 10mg Take 1 [facility] n 10 mg 1-01 tablet by ity of tablet 00:00: mouth at [place] [address] bedtime. Medical Branch diltiazem 2021-09 Yes [id number] 120mg Take 1 [facility] nivers 120 mg 24 1-01 capsule by ity of hr capsule 00:00: mouth in [place] 00 the Medical morning Branch and 1 capsule in the evening. fluticasone 2021-09 Yes [id number] 2{puff} Inhale 2 [facility] propionate 1-01 Puffs ity of (FLOVENT 00:00: every 12 [facility]) 110 00 (twelve) Medical mcg/actuati hours. Branch on inhaler Rinse mouth after each use. rosuvastati 2021-09 Yes [id number] 10mg Take 1 [facility] n 10 mg 1-01 tablet by ity of tablet 00:00: mouth at [place] [address] bedtime. Medical Branch diltiazem 2021-09 Yes [id number] 120mg Take 1 [facility] nivers 120 mg 24 1-01 capsule by ity of hr capsule 00:00: mouth in [place] 00 the Medical morning Branch and 1 capsule in the evening. fluticasone 2021-09 Yes [id number] 2{puff} Inhale 2 [facility] propionate 1-01 Puffs ity of (FLOVENT 00:00: every 12 [place] HFA) 110 00 (twelve) Medical mcg/actuati hours. Branch on inhaler Rinse mouth after each use. rosuvastati 2021-09 Yes [id number] 10mg Take 1 [facility] n 10 mg 1-01 tablet by ity of tablet 00:00: mouth at [place] 00 bedtime. Medical Branch diltiazem 2021-09 Yes [id number] 120mg Take 1 [facility] nivers 120 mg 24 1-01 capsule by ity of hr capsule 00:00: mouth in [place] 00 the Medical morning Branch and 1 capsule in the evening. fluticasone 2021-09 Yes [id number] 2{puff} Inhale 2 [facility] propionate 1-01 Puffs ity of (FLOVENT 00:00: every 12 [place] HFA) 110 00 (twelve) Medical mcg/actuati hours. Branch on inhaler Rinse mouth after each use. rosuvastati 2021-09 Yes [id number] 10mg Take 1 [facility] n 10 mg 1-01 tablet by ity of tablet 00:00: mouth at [place] 00 bedtime. Medical Branch diltiazem 2021-09 Yes [id number] 120mg Take 1 [facility] nivers 120 mg 24 1-01 capsule by ity of hr capsule 00:00: mouth in [place] 00 the Medical morning Branch and 1 capsule in the evening. fluticasone 2021-09 Yes [id number] 2{puff} Inhale 2 [facility] propionate 1-01 Puffs ity of (FLOVENT 00:00: every 12 [place] HFA) 110 00 (twelve) Medical mcg/actuati hours. Branch on inhaler Rinse mouth after each use. rosuvastati 2021-09 Yes [id number] 10mg Take 1 [facility] n 10 mg 1-01 tablet by ity of tablet 00:00: mouth at [place] 00 bedtime. Medical Branch diltiazem 2021-09 Yes [id number] 120mg Take 1 [facility] nivers 120 mg 24 1-01 capsule by ity of hr capsule 00:00: mouth in [place] 00 the Medical morning Branch and 1 capsule in the evening. fluticasone 2021-09 Yes [id number] 2{puff} Inhale 2 [facility] propionate 1-01 Puffs ity of (FLOVENT 00:00: every 12 [place] HFA) 110 00 (twelve) Medical mcg/actuati hours. Branch on inhaler Rinse mouth after each use. rosuvastati 2021-09 Yes [id number] 10mg Take 1 [facility] n 10 mg 1-01 tablet by ity of tablet 00:00: mouth at [place] 00 bedtime. Medical Branch diltiazem 2021-09 Yes [id number] 120mg Take 1 [facility] nivers 120 mg 24 1-01 capsule by ity of hr capsule 00:00: mouth in [place] 00 the Medical morning Branch and 1 capsule in the evening. fluticasone 2021-09 Yes [id number] 2{puff} Inhale 2 [facility] propionate 1-01 Puffs ity of (FLOVENT 00:00: every 12 [place] HFA) 110 00 (twelve) Medical mcg/actuati hours. Branch on inhaler Rinse mouth after each use. rosuvastati 2021-09 Yes [id number] 10mg Take 1 [facility] n 10 mg 1-01 tablet by ity of tablet 00:00: mouth at [place] 00 bedtime. Medical Branch diltiazem 2021-09 Yes [id number] 120mg Take 1 [facility] nivers 120 mg 24 1-01 capsule by ity of hr capsule 00:00: mouth in [place] 00 the Medical morning Branch and 1 capsule in the evening. fluticasone 2021-09 Yes [id number] 2{puff} Inhale 2 [facility] propionate 1-01 Puffs ity of (FLOVENT 00:00: every 12 [place] HFA) 110 00 (twelve) Medical mcg/actuati hours. Branch on inhaler Rinse mouth after each use. rosuvastati 2021-09 Yes [id number] 10mg Take 1 [facility] n 10 mg 1-01 tablet by ity of tablet 00:00: mouth at [place] 00 bedtime. Medical Branch diltiazem 2021-09 Yes [id number] 120mg Take 1 [facility] nivers 120 mg 24 1-01 capsule by ity of hr capsule 00:00: mouth in [place] 00 the Medical morning Branch and 1 capsule in the evening. fluticasone 2021-09 Yes [id number] 2{puff} Inhale 2 [facility] propionate 1-01 Puffs ity of (FLOVENT 00:00: every 12 [place] HFA) 110 00 (twelve) Medical mcg/actuati hours. Branch on inhaler Rinse mouth after each use. rosuvastati 2021-09 Yes [id number] 10mg Take 1 [facility] n 10 mg 1-01 tablet by ity of tablet 00:00: mouth at [place] 00 bedtime. Medical Branch diltiazem 2021-09 Yes [id number] 120mg Take 1 [facility] nivers 120 mg 24 1-01 capsule by ity of hr capsule 00:00: mouth in [place] 00 the Medical morning Branch and 1 capsule in the evening. fluticasone 2021-09 Yes [id number] 2{puff} Inhale 2 [facility] propionate 1-01 Puffs ity of (FLOVENT 00:00: every 12 [place] HFA) 110 00 (twelve) Medical mcg/actuati hours. Branch on inhaler Rinse mouth after each use. rosuvastati 2021-09 Yes [id number] 10mg Take 1 [facility] n 10 mg 1-01 tablet by ity of tablet 00:00: mouth at [place] 00 bedtime. Medical Branch diltiazem 2021-09 Yes [id number] 120mg Take 1 [facility] nivers 120 mg 24 1-01 capsule by ity of hr capsule 00:00: mouth in [place] 00 the Medical morning Branch and 1 capsule in the evening. fluticasone 2021-09 Yes [id number] 2{puff} Inhale 2 [facility] propionate 1-01 Puffs ity of (FLOVENT 00:00: every 12 [place] HFA) 110 00 (twelve) Medical mcg/actuati hours. Branch on inhaler Rinse mouth after each use. rosuvastati 2021-09 Yes [id number] 10mg Take 1 [facility] n 10 mg 1-01 tablet by ity of tablet 00:00: mouth at [place] 00 bedtime. Medical Branch diltiazem 2021-09 Yes [id number] 120mg Take 1 [facility] nivers 120 mg 24 1-01 capsule by ity of hr capsule 00:00: mouth in [place] 00 the Medical morning Branch and 1 capsule in the evening. fluticasone 2021-09 Yes [id number] 2{puff} Inhale 2 [facility] propionate 1-01 Puffs ity of (FLOVENT 00:00: every 12 [place] HFA) 110 00 (twelve) Medical mcg/actuati hours. Branch on inhaler Rinse mouth after each use. rosuvastati 2021-09 Yes [id number] 10mg Take 1 [facility] n 10 mg 1-01 tablet by ity of tablet 00:00: mouth at [place] 00 bedtime. Medical Branch diltiazem 2021-09 Yes [id number] 120mg Take 1 [facility] nivers 120 mg 24 1-01 capsule by ity of hr capsule 00:00: mouth in [place] 00 the Medical morning Branch and 1 capsule in the evening. fluticasone 2021-09 Yes [id number] 2{puff} Inhale 2 [facility] propionate 1-01 Puffs ity of (FLOVENT 00:00: every 12 [place] HFA) 110 00 (twelve) Medical mcg/actuati hours. Branch on inhaler Rinse mouth after each use. rosuvastati 2021-09 Yes [id number] 10mg Take 1 [facility] n 10 mg 1-01 tablet by ity of tablet 00:00: mouth at [place] 00 bedtime. Medical Branch diltiazem 2021-09 Yes [id number] 120mg Take 1 [facility] nivers 120 mg 24 1-01 capsule by ity of hr capsule 00:00: mouth in [place] 00 the Medical morning Branch and 1 capsule in the evening. fluticasone 2021-09 Yes [id number] 2{puff} Inhale 2 [facility] propionate 1-01 Puffs ity of (FLOVENT 00:00: every 12 [place] HFA) 110 00 (twelve) Medical mcg/actuati hours. Branch on inhaler Rinse mouth after each use. rosuvastati 2021-09 Yes [id number] 10mg Take 1 [facility] n 10 mg 1-01 tablet by ity of tablet 00:00: mouth at [place] 00 bedtime. Medical Branch diltiazem 2021-09 Yes [id number] 120mg Take 1 [facility] nivers 120 mg 24 1-01 capsule by ity of hr capsule 00:00: mouth in [place] 00 the Medical morning Branch and 1 capsule in the evening. fluticasone 2021-09 Yes [id number] 2{puff} Inhale 2 [facility] propionate 1-01 Puffs ity of (FLOVENT 00:00: every 12 [place] HFA) 110 00 (twelve) Medical mcg/actuati hours. Branch on inhaler Rinse mouth after each use. rosuvastati 2021-09 Yes [id number] 10mg Take 1 [facility] n 10 mg 1-01 tablet by ity of tablet 00:00: mouth at [place] 00 bedtime. Medical Branch diltiazem 2021-09 Yes [id number] 120mg Take 1 [facility] nivers 120 mg 24 1-01 capsule by ity of hr capsule 00:00: mouth in [place] 00 the Medical morning Branch and 1 capsule in the evening. fluticasone 2021-09 Yes [id number] 2{puff} Inhale 2 [facility] propionate 1-01 Puffs ity of (FLOVENT 00:00: every 12 [place] HFA) 110 00 (twelve) Medical mcg/actuati hours. Branch on inhaler Rinse mouth after each use. rosuvastati 2021-09 Yes [id number] 10mg Take 1 [facility] n 10 mg 1-01 tablet by ity of tablet 00:00: mouth at [place] 00 bedtime. Medical Branch diltiazem 2021-09 Yes [id number] 120mg Take 1 [facility] nivers 120 mg 24 1-01 capsule by ity of hr capsule 00:00: mouth in [place] 00 the Medical morning Branch and 1 capsule in the evening. fluticasone 2021-09 Yes [id number] 2{puff} Inhale 2 [facility] propionate 1-01 Puffs ity of (FLOVENT 00:00: every 12 [place] HFA) 110 00 (twelve) Medical mcg/actuati hours. Branch on inhaler Rinse mouth after each use. rosuvastati 2021-09 Yes [id number] 10mg Take 1 [facility] n 10 mg 1-01 tablet by ity of tablet 00:00: mouth at [place] 00 bedtime. Medical Branch diltiazem 2021-09 Yes [id number] 120mg Take 1 U nivers 120 mg 24 1-01 capsule by ity of hr capsule 00:00: mouth in [place] 00 the Medical morning Branch and 1 capsule in the evening. fluticasone 2021-09 Yes [id number] 2{puff} Inhale 2 [facility] propionate 1-01 Puffs ity of (FLOVENT 00:00: every 12 [place] HFA) 110 00 (twelve) Medical mcg/actuati hours. Branch on inhaler Rinse mouth after each use. rosuvastati 2021-09 Yes [id number] 10mg Take 1 [facility] n 10 mg 1-01 tablet by ity of tablet 00:00: mouth at [place] 00 bedtime. Medical Branch diltiazem 2021-09 Yes [id number] 120mg Take 1 U nivers 120 mg 24 1-01 capsule by ity of hr capsule 00:00: mouth in [place] 00 the Medical morning Branch and 1 capsule in the evening. fluticasone 2021-09 Yes [id number] 2{puff} Inhale 2 [facility] propionate 1-01 Puffs ity of (FLOVENT 00:00: every 12 [place] HFA) 110 00 (twelve) Medical mcg/actuati hours. Branch on inhaler Rinse mouth after each use. rosuvastati 2021-09 Yes [id number] 10mg Take 1 [facility] n 10 mg 1-01 tablet by ity of tablet 00:00: mouth at [place] 00 bedtime. Medical Branch diltiazem 2021-09 Yes [id number] 120mg Take 1 [facility] nivers 120 mg 24 1-01 capsule by ity of hr capsule 00:00: mouth in [place] 00 the Medical morning Branch and 1 capsule in the evening. fluticasone 2021-09 Yes [id number] 2{puff} Inhale 2 [facility] propionate 1-01 Puffs ity of (FLOVENT 00:00: every 12 [place] HFA) 110 00 (twelve) Medical mcg/actuati hours. Branch on inhaler Rinse mouth after each use. rosuvastati 2021-09 Yes [id number] 10mg Take 1 [facility] n 10 mg 1-01 tablet by ity of tablet 00:00: mouth at [place] 00 bedtime. Medical Branch diltiazem 2021-09 Yes [id number] 120mg Take 1 [facility] nivers 120 mg 24 1-01 capsule by ity of hr capsule 00:00: mouth in [place] 00 the Medical morning Branch and 1 capsule in the evening. fluticasone 2021-09 Yes [id number] 2{puff} Inhale 2 [facility] propionate 1-01 Puffs ity of (FLOVENT 00:00: every 12 [place] HFA) 110 00 (twelve) Medical mcg/actuati hours. Branch on inhaler Rinse mouth after each use. rosuvastati 2021-09 Yes [id number] 10mg Take 1 [facility] n 10 mg 1-01 tablet by ity of tablet 00:00: mouth at [place] 00 bedtime. Medical Branch diltiazem 2021-09 Yes [id number] 120mg Take 1 [facility] nivers 120 mg 24 1-01 capsule by ity of hr capsule 00:00: mouth in [place] 00 the Medical morning Branch and 1 capsule in the evening. fluticasone 2021-09 Yes [id number] 2{puff} Inhale 2 [facility] propionate 1-01 Puffs ity of (FLOVENT 00:00: every 12 [place] HFA) 110 00 (twelve) Medical mcg/actuati hours. Branch on inhaler Rinse mouth after each use. rosuvastati 2021-09 Yes [id number] 10mg Take 1 [facility] n 10 mg 1-01 tablet by ity of tablet 00:00: mouth at [place] 00 bedtime. Medical Branch diltiazem 2021-09 Yes [id number] 120mg Take 1 [facility] nivers 120 mg 24 1-01 capsule by ity of hr capsule 00:00: mouth in [place] 00 the Medical morning Branch and 1 capsule in the evening. fluticasone 2021-09 Yes [id number] 2{puff} Inhale 2 [facility] propionate 1-01 Puffs ity of (FLOVENT 00:00: every 12 [place] HFA) 110 00 (twelve) Medical mcg/actuati hours. Branch on inhaler Rinse mouth after each use. rosuvastati 2021-09 Yes [id number] 10mg Take 1 [facility] n 10 mg 1-01 tablet by ity of tablet 00:00: mouth at [place] 00 bedtime. Medical Branch diltiazem 2021-09 Yes [id number] 120mg Take 1 [facility] nivers 120 mg 24 1-01 capsule by ity of hr capsule 00:00: mouth in [place] 00 the Medical morning Branch and 1 capsule in the evening. fluticasone 2021-09 Yes [id number] 2{puff} Inhale 2 [facility] propionate 1-01 Puffs ity of (FLOVENT 00:00: every 12 [place] HFA) 110 00 (twelve) Medical mcg/actuati hours. Branch on inhaler Rinse mouth after each use. rosuvastati 2021-09 Yes [id number] 10mg Take 1 [facility] n 10 mg 1-01 tablet by ity of tablet 00:00: mouth at [place] 00 bedtime. Medical Branch diltiazem 2021-09 Yes [id number] 120mg Take 1 [facility] nivers 120 mg 24 1-01 capsule by ity of hr capsule 00:00: mouth in [place] 00 the Medical morning Branch and 1 capsule in the evening. fluticasone 2021-09 Yes [id number] 2{puff} Inhale 2 [facility] propionate 1-01 Puffs ity of (FLOVENT 00:00: every 12 [place] HFA) 110 00 (twelve) Medical mcg/actuati hours. Branch on inhaler Rinse mouth after each use. rosuvastati 2021-09 Yes [id number] 10mg Take 1 [facility] n 10 mg 1-01 tablet by ity of tablet 00:00: mouth at [place] 00 bedtime. Medical Branch diltiazem 2021-09 Yes [id number] 120mg Take 1 [facility] nivers 120 mg 24 1-01 capsule by ity of hr capsule 00:00: mouth in [place] 00 the Medical morning Branch and 1 capsule in the evening. fluticasone 2021-09 Yes [id number] 2{puff} Inhale 2 [facility] propionate 1-01 Puffs ity of (FLOVENT 00:00: every 12 [place] HFA) 110 00 (twelve) Medical mcg/actuati hours. Branch on inhaler Rinse mouth after each use. rosuvastati 2021-09 Yes [id number] 10mg Take 1 [facility] n 10 mg 1-01 tablet by ity of tablet 00:00: mouth at [place] 00 bedtime. Medical Branch diltiazem 2021-09 Yes [id number] 120mg Take 1 [facility] nivers 120 mg 24 1-01 capsule by ity of hr capsule 00:00: mouth in [place] 00 the Medical morning Branch and 1 capsule in the evening. fluticasone 2021-09 Yes [id number] 2{puff} Inhale 2 [facility] propionate 1-01 Puffs ity of (FLOVENT 00:00: every 12 [place] HFA) 110 00 (twelve) Medical mcg/actuati hours. Branch on inhaler Rinse mouth after each use. rosuvastati 2021-09 Yes [id number] 10mg Take 1 [facility] n 10 mg 1-01 tablet by ity of tablet 00:00: mouth at [place] 00 bedtime. Medical Branch diltiazem 2021-09 Yes [id number] 120mg Take 1 [facility] nivers 120 mg 24 1-01 capsule by ity of hr capsule 00:00: mouth in [place] 00 the Medical morning Branch and 1 capsule in the evening. fluticasone 2021-09 Yes [id number] 2{puff} Inhale 2 [facility] propionate 1-01 Puffs ity of (FLOVENT 00:00: every 12 [place] HFA) 110 00 (twelve) Medical mcg/actuati hours. Branch on inhaler Rinse mouth after each use. rosuvastati 2021-09 Yes [id number] 10mg Take 1 [facility] n 10 mg 1-01 tablet by ity of tablet 00:00: mouth at [place] 00 bedtime. Medical Branch diltiazem 2021-09 Yes [id number] 120mg Take 1 [facility] 120 mg 24 1-01 capsule by [facility] hr capsule 00:00: mouth in [place] 00 the Medical morning Branch and 1 capsule in the evening. fluticasone 2021-09 Yes [id number] 2{puff} Inhale 2 [facility] propionate 1-01 Puffs ity of (FLOVENT 00:00: every 12 [place] HFA) 110 00 (twelve) Medical mcg/actuati hours. Branch on inhaler Rinse mouth after each use. rosuvastati 2021-09 Yes [id number] 10mg Take 1 [facility] n 10 mg 1-01 tablet by [facility] of tablet 00:00: mouth at [place] 00 bedtime. Medical Branch diltiazem 2021-09 Yes [id number] 120mg Take 1 [facility] 120 mg 24 1-01 capsule by [facility] of hr capsule 00:00: mouth in [place] 00 the Medical morning Branch and 1 capsule in the evening. fluticasone 2021-09 Yes [id number] 2{puff} Inhale 2 [facility] propionate 1-01 Puffs ity of (FLOVENT 00:00: every 12 [place] HFA) 110 00 (twelve) Medical mcg/actuati hours. Branch on inhaler Rinse mouth after each use. rosuvastati 2021-09 Yes [id number] 10mg Take 1 [facility] n 10 mg 1-01 tablet by [facility] of tablet 00:00: mouth at [place] 00 bedtime. Medical Branch diltiazem 2021-09 Yes [id number] 120mg Take 1 [facility] 120 mg 24 1-01 capsule by [facility] of hr capsule 00:00: mouth in [place] 00 the Medical morning Branch and 1 capsule in the evening. fluticasone 2021-09 Yes [id number] 2{puff} Inhale 2 [facility] propionate 1-01 Puffs ity of (FLOVENT 00:00: every 12 [place] HFA) 110 00 (twelve) Medical mcg/actuati hours. Branch on inhaler Rinse mouth after each use. rosuvastati 2021-09 Yes [id number] 10mg Take 1 [facility] n 10 mg 1-01 tablet by [facility] of tablet 00:00: mouth at [place] 00 bedtime. Medical Branch diltiazem 2021-09 Yes [id number] 120mg Take 1 [facility] 120 mg 24 1-01 capsule by [facility] of hr capsule 00:00: mouth in [place] 00 the Medical morning Branch and 1 capsule in the evening. fluticasone 2021-09 Yes [id number] 2{puff} Inhale 2 [facility] propionate 1-01 Puffs ity of (FLOVENT 00:00: every 12 [place] HFA) 110 00 (twelve) Medical mcg/actuati hours. Branch on inhaler Rinse mouth after each use. rosuvastati 2021-09 Yes [id number] 10mg Take 1 [facility] n 10 mg 1-01 tablet by [facility] of tablet 00:00: mouth at [place] 00 bedtime. Medical Branch diltiazem 2021-09 Yes [id number] 120mg Take 1 [facility] 120 mg 24 1-01 capsule by [facility] of hr capsule 00:00: mouth in [place] 00 the Medical morning Branch and 1 capsule in the evening. fluticasone 2021-09 Yes [id number] 2{puff} Inhale 2 [facility] propionate 1-01 Puffs ity of (FLOVENT 00:00: every 12 [place] HFA) 110 00 (twelve) Medical mcg/actuati hours. Branch on inhaler Rinse mouth after each use. rosuvastati 2021-09 Yes [id number] 10mg Take 1 [facility] n 10 mg 1-01 tablet by [facility] of tablet 00:00: mouth at [place] 00 bedtime. Medical Branch diltiazem 2021-09 Yes [id number] 120mg Take 1 [facility] 120 mg 24 1-01 capsule by [facility] of hr capsule 00:00: mouth in [place] 00 the Medical morning Branch and 1 capsule in the evening. fluticasone 2021-09 Yes [id number] 2{puff} Inhale 2 [facility] propionate 1-01 Puffs ity of (FLOVENT 00:00: every 12 [place] HFA) 110 00 (twelve) Medical mcg/actuati hours. Branch on inhaler Rinse mouth after each use. rosuvastati 2021-09 Yes [id number] 10mg Take 1 [facility] n 10 mg 1-01 tablet by [facility] of tablet 00:00: mouth at [place] 00 bedtime. Medical Branch diltiazem 2021-09 Yes [id number] 120mg Take 1 [facility] 120 mg 24 1-01 capsule by [facility] of hr capsule 00:00: mouth in [place] 00 the Medical morning Branch and 1 capsule in the evening. fluticasone 2021-09 Yes [id number] 2{puff} Inhale 2 [facility] propionate 1-01 Puffs ity of (FLOVENT 00:00: every 12 [place] [facility]FA) 110 00 (twelve) Medical mcg/actuati hours. Branch on inhaler Rinse mouth after each use. rosuvastati 2021-09 Yes [id number] 10mg Take 1 [facility] n 10 mg 1-01 tablet by [facility]y of tablet 00:00: mouth at [place] 00 bedtime. Medical Branch diltiazem 2021-09 Yes [id number] 120mg Take 1 [facility] 120 mg 24 1-01 capsule by [facility] of hr capsule 00:00: mouth in [place] 00 the Medical morning Branch and 1 capsule in the evening. fluticasone 2021-09 Yes [id number] 2{puff} Inhale 2 [facility] propionate 1-01 Puffs ity of (FLOVENT 00:00: every 12 [place] [facility]FA) 110 00 (twelve) Medical mcg/actuati hours. Branch on inhaler Rinse mouth after each use. rosuvastati 2021-09 Yes [id number] 10mg Take 1 [facility] n 10 mg 1-01 tablet by [facility] of tablet 00:00: mouth at [place] 00 bedtime. Medical Branch diltiazem 2021-09 Yes [id number] 120mg Take 1 [facility] 120 mg 24 1-01 capsule by [facility] of hr capsule 00:00: mouth in [place] 00 the Medical morning Branch and 1 capsule in the evening. fluticasone 2021-09 Yes [id number] 2{puff} Inhale 2 [facility] propionate 1-01 Puffs ity of (FLOVENT 00:00: every 12 [place] [facility]FA) 110 00 (twelve) Medical mcg/actuati hours. Branch on inhaler Rinse mouth after each use. rosuvastati 2021-09 Yes [id number] 10mg Take 1 [facility] n 10 mg 1-01 tablet by [facility] of tablet 00:00: mouth at [place] 00 bedtime. Medical Branch diltiazem 2021-09 Yes [id number] 120mg Take 1 [facility] 120 mg 24 1-01 capsule by [facility] of hr capsule 00:00: mouth in [place] as 00 the Medical morning Branch and 1 capsule in the evening. fluticasone 2021-09 Yes [id number] 2{puff} Inhale 2 [facility] propionate 1-01 Puffs ity of (FLOVENT 00:00: every 12 [place] [facility]FA) 110 00 (twelve) Medical mcg/actuati hours. Branch on inhaler Rinse mouth after each use. rosuvastati 2021-09 Yes [id number] 10mg Take 1 [facility] n 10 mg 1-01 tablet by [facility] of tablet 00:00: mouth at [place] 00 bedtime. Medical Branch diltiazem 2021-09 Yes [id number] 120mg Take 1 [facility] 120 mg 24 1-01 capsule by [facility] of hr capsule 00:00: mouth in [place] 00 the Medical morning Branch and 1 capsule in the evening. fluticasone 2021-09 Yes [id number] 2{puff} Inhale 2 [facility] propionate 1-01 Puffs ity of (FLOVENT 00:00: every 12 [place] HFA) 110 00 (twelve) Medical mcg/actuati hours. Branch on inhaler Rinse mouth after each use. rosuvastati 2021-09 Yes [id number] 10mg Take 1 [facility] n 10 mg 1-01 tablet by [facility] of tablet 00:00: mouth at [place] 00 bedtime. Medical Branch diltiazem 2021-09 Yes [id number] 120mg Take 1 [facility] 120 mg 24 1-01 capsule by [facility] of hr capsule 00:00: mouth in [place] 00 the Medical morning Branch and 1 capsule in the evening. fluticasone 2021-09 Yes [id number] 2{puff} Inhale 2 [facility] propionate 1-01 Puffs ity of (FLOVENT 00:00: every 12 [place] HFA) 110 00 (twelve) Medical mcg/actuati hours. Branch on inhaler Rinse mouth after each use. rosuvastati 2021-09 Yes [id number] 10mg Take 1 [facility] n 10 mg 1-01 tablet by [facility] of tablet 00:00: mouth at [place] 00 bedtime. Medical Branch diltiazem 2021-09 Yes [id number] 120mg Take 1 [facility] 120 mg 24 - capsule by [facility] of hr capsule 00:00: mouth in [place] 00 the Medical morning Branch and 1 capsule in the evening. fluticasone 2021-09 Yes [id number] 2{puff} Inhale 2 [facility] propionate 1-01 Puffs ity of (FLOVENT 00:00: every 12 [place] HFA) 110 00 (twelve) Medical mcg/actuati hours. Branch on inhaler Rinse mouth after each use. rosuvastati 2021-09 Yes [id number] 10mg Take 1 [facility] n 10 mg - tablet by [facility] of tablet 00:00: mouth at [place] 00 bedtime. Medical Branch diltiazem 2021-09 Yes [id number] 120mg Take 1 [facility] 120 mg 24 09-26 capsule by [facility] of hr capsule 00:00: mouth in [place] 00 the Medical morning Branch and 1 capsule in the evening. fluticasone 2021-09 Yes [id number] 2{puff} Inhale 2 [facility] propionate 1-01 Puffs ity of (FLOVENT 00:00: every 12 [place] HFA) 110 00 (twelve) Medical mcg/actuati hours. Branch on inhaler Rinse mouth after each use. rosuvastati 2021-09 Yes [id number] 10mg Take 1 [facility] n 10 mg 09-26 tablet by [facility]y of tablet 00:00: mouth at [place] 00 bedtime. Medical Branch metformin 2021-09- No [id number] 500mg Take 1 [facility] ER 500 mg 09-26 tablet by ity of 24 hr 00:00: 00:00 mouth [place] tablet 00 :00 daily with Medical breakfast. Branch pantoprazol 2021-09- No [id number] 40mg Take 1 [facility] e 40 mg EC 09-26 tablet by ity of tablet 00:00: 00:00 mouth in [place] 00 :00 the Medical morning. Branch SUMAtriptan 2021-09- No [id number] 50mg Take 1 [facility] 50 mg 09-26 tablet by ity of tablet 00:00: 00:00 mouth as [place] 00 :00 needed for Medical Migraine. Branch metformin 2021-09- No [id number] 500mg Take 1 [facility] ER 500 mg 09-26 tablet by ity of 24 hr 00:00: 00:00 mouth [place] tablet 00 :00 daily with Medical breakfast. [place] pantoprazol 2021-09- No [id number] 40mg Take 1 [facility] e 40 mg EC 09-26 tablet by ity of tablet 00:00: 00:00 mouth in [place] 00 :00 the Medical morning. [place] SUMAtriptan 2021-09- No [id number] 50mg Take 1 [facility] 50 mg 09-26 tablet by ity of tablet 00:00: 00:00 mouth as [place] 00 :00 needed for Medical Migraine. [place] metformin 2021-09- No [id number] 500mg Take 1 [facility] ER 500 mg 09-26 tablet by ity of 24 hr 00:00: 00:00 mouth [place] tablet 00 :00 daily with Medical breakfast. [place] pantoprazol 2021-09- No [id number] 40mg Take 1 [facility] e 40 mg EC 09-26 tablet by ity of tablet 00:00: 00:00 mouth in [place] 00 :00 the Medical morning. [place] SUMAtriptan 2021-09- No [id number] 50mg Take 1 [facility] 50 mg 09-26 tablet by ity of tablet 00:00: 00:00 mouth as [place] 00 :00 needed for Medical Migraine. [place] metformin 2021-09- No [id number] 500mg Take 1 [facility] ER 500 mg 09-26 tablet by ity of 24 hr 00:00: 00:00 mouth [place] tablet 00 :00 daily with Medical breakfast. [place] pantoprazol 2021-09- No [id number] 40mg Take 1 [facility] e 40 mg EC 09-26 tablet by ity of tablet 00:00: 00:00 mouth in [place] 00 :00 the Medical morning. [place] SUMAtriptan 2021-09- No [id number] 50mg Take 1 [facility] 50 mg 09-26 tablet by ity of tablet 00:00: 00:00 mouth as [place] 00 :00 needed for Medical Migraine. [place] metformin 2021-09- No [id number] 500mg Take 1 [facility] ER 500 mg 09-26 tablet by ity of 24 hr 00:00: 00:00 mouth [place] tablet 00 :00 daily with Medical breakfast. Branch pantoprazol 2021-09- No [id number] 40mg Take 1 [facility] e 40 mg EC 09-26 tablet by ity of tablet 00:00: 00:00 mouth in [place] 00 :00 the Medical morning. Branch SUMAtriptan 2021-09- No [id number] 50mg Take 1 [facility] 50 mg 09-26 tablet by ity of tablet 00:00: 00:00 mouth as [place] 00 :00 needed for Medical Migraine. Branch pregabalin 2021-09- No [id number] 150mg Take 1 [facility] 150 mg 09-26 capsule by ity of capsule 00:00: 00:00 mouth in [place] 00 :00 the Medical morning Branch and 1 capsule at noon and 1 capsule in the evening. levothyroxi 2021-09- No [id number] 50ug Take 1 [facility] ne 50 mcg 09-26 tablet by ity of tablet 00:00: 00:00 mouth [place] 00 :00 every Medical morning. Branch levothyroxi 2021-09- No [id number] 50ug Take 1 [facility] ne 50 mcg 09-26 tablet by ity of tablet 00:00: 00:00 mouth [place] 00 :00 every Medical morning. Branch busPIRone 2021-09 Yes [id number] 20mg Take 2 [facility] [place] 10 mg 0-13 tablets by [facility] of tablet 00:00: mouth in [place] 00 the Medical morning Branch and 2 tablets in the evening. diltiazem 2021-09 Yes [id number] 120mg Take 1 [facility] 120 mg 24 0-13 capsule by [facility] of hr capsule 00:00: mouth in [place] 00 the Medical morning Branch and 1 capsule in the evening. levothyroxi 2021-09 Yes [id number] 50ug Take 1 [facility] ne 50 mcg 0-13 tablet by ity o f tablet 00:00: mouth [place] 00 every Medical morning. Branch losartan 50 2021-09 Yes [id number] 50mg Take 1 [facility] mg tablet 0-13 tablet by ity o f 00:00: mouth in [place] 00 the Medical morning Branch and 1 tablet in the evening. metformin 2021-09 Yes [id number] 500mg Take 1 [facility] n[facility] ER 500 mg 0-13 tablet by ity o f 24 hr 00:00: mouth [place] tablet 00 daily with Medical breakfast. Branch STOP REGULAR METFORMIN. mirabegron 2021-09 Yes [id number] 50mg Take 1 [facility] (MYRBETRIQ) 0-13 tablet by ity of 50 mg 00:00: mouth in [place] tablet 00 the Medical morning. Branch semaglutide 2021-09 Yes [id number] Inject [facility] (OZEMPIC) 0-13 0.25 mg ity of 0.25 mg or 00:00: under the [place] 0.5 mg(2 00 skin Medical mg/1.5 mL) weekly. Branch PnIj pantoprazol 2021-09 Yes [id number] 40mg Take 1 [facility] e 40 mg EC 0-13 tablet by ity of tablet 00:00: mouth in [place] 00 the Medical morning. Branch pregabalin 2021-09 Yes [id number] 150mg Take 1 [facility] 150 mg 0-13 capsule by ity of capsule 00:00: mouth in [place] 00 the Medical morning Branch and 1 capsule at noon and 1 capsule in the evening. rosuvastati 2021-09 Yes [id number] 10mg Take 1 [facility] n 10 mg 0-13 tablet by ity of tablet 00:00: mouth at [place] 00 bedtime. Medical Branch SUMAtriptan 2021-09 Yes [id number] 50mg Take 1 [facility] 50 mg 0-13 tablet by ity of tablet 00:00: mouth as [place] 00 needed for Medical Migraine. Branch topiramate 2021-09 Yes [id number] 75mg Take 3 [facility] 25 mg 0-13 tablets by ity of tablet 00:00: mouth in [place] 00 the Medical morning Branch and 3 tablets in the evening. busPIRone 2021-09 Yes [id number] 20mg Take 2 [facility] [place] 10 mg 0-13 tablets by it[facility] of tablet 00:00: mouth in [place] 00 the Medical morning Branch and 2 tablets in the evening. losartan 50 2021-09 Yes [id number] 50mg Take 1 [facility] mg tablet 0-13 tablet by ity o f 00:00: mouth in [place] 00 the Medical morning Branch and 1 tablet in the evening. mirabegron 2021-09 Yes [id number] 50mg Take 1 [facility] (MYRBETRIQ) 0-13 tablet by ity of 50 mg 00:00: mouth in [place] tablet 00 the Medical morning. Branch semaglutide 2021-09 Yes [id number] Inject [facility] (OZEMPIC) 0-13 0.25 mg ity of 0.25 mg or 00:00: under the [place] 0.5 mg(2 00 skin Medical mg/1.5 mL) weekly. Branch PnIj topiramate 2021-09 Yes [id number] 75mg Take 3 [facility] 25 mg 0-13 tablets by ity of tablet 00:00: mouth in [place] 00 the Medical morning Branch and 3 tablets in the evening. busPIRone 2021-09 Yes [id number] 20mg Take 2 [facility] [place] 10 mg 0-13 tablets by [facility] of tablet 00:00: mouth in [place] 00 the Medical morning Branch and 2 tablets in the evening. losartan 50 2021-09 Yes [id number] 50mg Take 1 [facility] mg tablet 0-13 tablet by ity o f 00:00: mouth in [place] 00 the Medical morning Branch and 1 tablet in the evening. mirabegron 2021-09 Yes [id number] 50mg Take 1 [facility] (MYRBETRIQ) 0-13 tablet by ity of 50 mg 00:00: mouth in [place] tablet 00 the Medical morning. Branch semaglutide 2021-09 Yes [id number] Inject [facility] (OZEMPIC) 0-13 0.25 mg ity of 0.25 mg or 00:00: under the [place] 0.5 mg(2 00 skin Medical mg/1.5 mL) weekly. Branch PnIj topiramate 2021-09 Yes [id number] 75mg Take 3 [facility] 25 mg 0-13 tablets by ity of tablet 00:00: mouth in [place] 00 the Medical morning Branch and 3 tablets in the evening. busPIRone 2021-09 Yes [id number] 20mg Take 2 [facility] [place] 10 mg 0-13 tablets by ity of tablet 00:00: mouth in [place] 00 the Medical morning Branch and 2 tablets in the evening. losartan 50 2021-09 Yes [id number] 50mg Take 1 [facility] mg tablet 0-13 tablet by ity o f 00:00: mouth in [place] 00 the Medical morning Branch and 1 tablet in the evening. mirabegron 2021-09 Yes [id number] 50mg Take 1 [facility] (MYRBETRIQ) 0-13 tablet by ity of 50 mg 00:00: mouth in [place] tablet 00 the Medical morning. Branch semaglutide 2021-09 Yes [id number] Inject [facility] (OZEMPIC) 0-13 0.25 mg ity of 0.25 mg or 00:00: under the [place] 0.5 mg(2 00 skin Medical mg/1.5 mL) weekly. Branch PnIj topiramate 2021-09 Yes [id number] 75mg Take 3 [facility] 25 mg 0-13 tablets by ity of tablet 00:00: mouth in [place] 00 the Medical morning Branch and 3 tablets in the evening. busPIRone 2021-09 Yes [id number] 20mg Take 2 [facility] [place] 10 mg 0-13 tablets by ity of tablet 00:00: mouth in [place] 00 the Medical morning Branch and 2 tablets in the evening. losartan 50 2021-09 Yes [id number] 50mg Take 1 [facility] mg tablet 0-13 tablet by ity o f 00:00: mouth in [place] 00 the Medical morning Branch and 1 tablet in the evening. mirabegron 2021-09 Yes [id number] 50mg Take 1 [facility] (MYRBETRIQ) 0-13 tablet by ity of 50 mg 00:00: mouth in [place] tablet 00 the Medical morning. Branch semaglutide 2021-09 Yes [id number] Inject [facility] (OZEMPIC) 0-13 0.25 mg ity of 0.25 mg or 00:00: under the [place] 0.5 mg(2 00 skin Medical mg/1.5 mL) weekly. Branch PnIj topiramate 2021-09 Yes [id number] 75mg Take 3 [facility] 25 mg 0-13 tablets by ity of tablet 00:00: mouth in [place] 00 the Medical morning Branch and 3 tablets in the evening. busPIRone 2021-09 Yes [id number] 20mg Take 2 [facility] [place] 10 mg 0-13 tablets by ity of tablet 00:00: mouth in [place] 00 the Medical morning Branch and 2 tablets in the evening. losartan 50 2021-09 Yes [id number] 50mg Take 1 [facility] mg tablet 0-13 tablet by ity o f 00:00: mouth in [place] 00 the Medical morning Branch and 1 tablet in the evening. mirabegron 2021-09 Yes [id number] 50mg Take 1 [facility] (MYRBETRIQ) 0-13 tablet by ity of 50 mg 00:00: mouth in [place] tablet 00 the Medical morning. Branch semaglutide 2021-09 Yes [id number] Inject [facility] (OZEMPIC) 0-13 0.25 mg ity of 0.25 mg or 00:00: under the [place] 0.5 mg(2 00 skin Medical mg/1.5 mL) weekly. Branch PnIj topiramate 2021-09 Yes [id number] 75mg Take 3 [facility] 25 mg 0-13 tablets by ity of tablet 00:00: mouth in [place] 00 the Medical morning Branch and 3 tablets in the evening. busPIRone 2021-09 Yes [id number] 20mg Take 2 [facility] [place] 10 mg 0-13 tablets by it[facility] of tablet 00:00: mouth in [place] 00 the Medical morning Branch and 2 tablets in the evening. losartan 50 2021-09 Yes [id number] 50mg Take 1 [facility] mg tablet 0-13 tablet by ity o f 00:00: mouth in [place] 00 the Medical morning Branch and 1 tablet in the evening. mirabegron 2021-09 Yes [id number] 50mg Take 1 [facility] (MYRBETRIQ) 0-13 tablet by ity of 50 mg 00:00: mouth in [place] tablet 00 the Medical morning. Branch semaglutide 2021-09 Yes [id number] Inject [facility] (OZEMPIC) 0-13 0.25 mg ity of 0.25 mg or 00:00: under the [place] 0.5 mg(2 00 skin Medical mg/1.5 mL) weekly. Branch PnIj topiramate 2021-09 Yes [id number] 75mg Take 3 [facility] 25 mg 0-13 tablets by ity of tablet 00:00: mouth in [place] 00 the Medical morning Branch and 3 tablets in the evening. busPIRone 2021-09 Yes [id number] 20mg Take 2 [facility] [place] 10 mg 0-13 tablets by ity of tablet 00:00: mouth in [place] 00 the Medical morning Branch and 2 tablets in the evening. losartan 50 2021-09 Yes [id number] 50mg Take 1 [facility] mg tablet 0-13 tablet by ity o f 00:00: mouth in [place] 00 the Medical morning Branch and 1 tablet in the evening. mirabegron 2021-09 Yes [id number] 50mg Take 1 [facility] (MYRBETRIQ) 0-13 tablet by ity of 50 mg 00:00: mouth in [place] tablet 00 the Medical morning. Branch semaglutide 2021-09 Yes [id number] Inject [facility] (OZEMPIC) 0-13 0.25 mg ity of 0.25 mg or 00:00: under the [place] 0.5 mg(2 00 skin Medical mg/1.5 mL) weekly. Branch PnIj topiramate 2021-09 Yes [id number] 75mg Take 3 [facility] 25 mg 0-13 tablets by ity of tablet 00:00: mouth in [place] 00 the Medical morning Branch and 3 tablets in the evening. busPIRone 2021-09 Yes [id number] 20mg Take 2 [facility] [place] 10 mg 0-13 tablets by it[facility] of tablet 00:00: mouth in [place] 00 the Medical morning Branch and 2 tablets in the evening. losartan 50 2021-09 Yes [id number] 50mg Take 1 [facility] mg tablet 0-13 tablet by ity o f 00:00: mouth in [place] 00 the Medical morning Branch and 1 tablet in the evening. mirabegron 2021-09 Yes [id number] 50mg Take 1 [facility] (MYRBETRIQ) 0-13 tablet by ity of 50 mg 00:00: mouth in [place] tablet 00 the Medical morning. Branch semaglutide 2021-09 Yes [id number] Inject [facility] (OZEMPIC) 0-13 0.25 mg ity of 0.25 mg or 00:00: under the [place] 0.5 mg(2 00 skin Medical mg/1.5 mL) weekly. Branch PnIj topiramate 2021-09 Yes [id number] 75mg Take 3 [facility] 25 mg 0-13 tablets by ity of tablet 00:00: mouth in [place] 00 the Medical morning Branch and 3 tablets in the evening. busPIRone 2021-09 Yes [id number] 20mg Take 2 [facility] [place] 10 mg 0-13 tablets by [facility] of tablet 00:00: mouth in [place] 00 the Medical morning Branch and 2 tablets in the evening. losartan 50 2021-09 Yes [id number] 50mg Take 1 [facility] mg tablet 0-13 tablet by ity o f 00:00: mouth in [place] 00 the Medical morning Branch and 1 tablet in the evening. mirabegron 2021-09 Yes [id number] 50mg Take 1 [facility] (MYRBETRIQ) 0-13 tablet by ity of 50 mg 00:00: mouth in [place] tablet 00 the Medical morning. Branch semaglutide 2021-09 Yes [id number] Inject [facility] (OZEMPIC) 0-13 0.25 mg ity of 0.25 mg or 00:00: under the [place] 0.5 mg(2 00 skin Medical mg/1.5 mL) weekly. Branch PnIj topiramate 2021-09 Yes [id number] 75mg Take 3 [facility] 25 mg 0-13 tablets by ity of tablet 00:00: mouth in [place] 00 the Medical morning Branch and 3 tablets in the evening. busPIRone 2021-09 Yes [id number] 20mg Take 2 [facility] [place] 10 mg 0-13 tablets by ity of tablet 00:00: mouth in [place] 00 the Medical morning Branch and 2 tablets in the evening. losartan 50 2021-09 Yes [id number] 50mg Take 1 [facility] mg tablet 0-13 tablet by ity o f 00:00: mouth in [place] 00 the Medical morning Branch and 1 tablet in the evening. mirabegron 2021-09 Yes [id number] 50mg Take 1 [facility] (MYRBETRIQ) 0-13 tablet by ity of 50 mg 00:00: mouth in [place] tablet 00 the Medical morning. Branch semaglutide 2021-09 Yes [id number] Inject [facility] (OZEMPIC) 0-13 0.25 mg ity of 0.25 mg or 00:00: under the [place] 0.5 mg(2 00 skin Medical mg/1.5 mL) weekly. Branch PnIj topiramate 2021-09 Yes [id number] 75mg Take 3 [facility] 25 mg 0-13 tablets by ity of tablet 00:00: mouth in [place] 00 the Medical morning Branch and 3 tablets in the evening. busPIRone 2021-09 Yes [id number] 20mg Take 2 [facility] [place] 10 mg 0-13 tablets by [facility] of tablet 00:00: mouth in [place] 00 the Medical morning Branch and 2 tablets in the evening. losartan 50 2021-09 Yes [id number] 50mg Take 1 [facility] mg tablet 0-13 tablet by ity o f 00:00: mouth in [place] 00 the Medical morning Branch and 1 tablet in the evening. mirabegron 2021-09 Yes [id number] 50mg Take 1 [facility] (MYRBETRIQ) 0-13 tablet by ity of 50 mg 00:00: mouth in [place] tablet 00 the Medical morning. Branch semaglutide 2021-09 Yes [id number] Inject [facility] (OZEMPIC) 0-13 0.25 mg ity of 0.25 mg or 00:00: under the [place] 0.5 mg(2 00 skin Medical mg/1.5 mL) weekly. Branch PnIj topiramate 2021-09 Yes [id number] 75mg Take 3 [facility] 25 mg 0-13 tablets by ity of tablet 00:00: mouth in [place] 00 the Medical morning Branch and 3 tablets in the evening. busPIRone 2021-09 Yes [id number] 20mg Take 2 [facility] [place] 10 mg 0-13 tablets by [facility]y of tablet 00:00: mouth in [place] 00 the Medical morning Branch and 2 tablets in the evening. losartan 50 2021-09 Yes [id number] 50mg Take 1 [facility] mg tablet 0-13 tablet by ity o f 00:00: mouth in [place] 00 the Medical morning Branch and 1 tablet in the evening. mirabegron 2021-09 Yes [id number] 50mg Take 1 [facility] (MYRBETRIQ) 0-13 tablet by ity of 50 mg 00:00: mouth in [place] tablet 00 the Medical morning. Branch semaglutide 2021-09 Yes [id number] Inject [facility] (OZEMPIC) 0-13 0.25 mg ity of 0.25 mg or 00:00: under the [place] 0.5 mg(2 00 skin Medical mg/1.5 mL) weekly. Branch PnIj topiramate 2021-09 Yes [id number] 75mg Take 3 [facility] 25 mg 0-13 tablets by ity of tablet 00:00: mouth in [place] 00 the Medical morning Branch and 3 tablets in the evening. busPIRone 2021-09 Yes [id number] 20mg Take 2 [facility] [place] 10 mg 0-13 tablets by ity of tablet 00:00: mouth in [place] 00 the Medical morning Branch and 2 tablets in the evening. losartan 50 2021-09 Yes [id number] 50mg Take 1 [facility] mg tablet 0-13 tablet by ity o f 00:00: mouth in [place] 00 the Medical morning Branch and 1 tablet in the evening. mirabegron 2021-09 Yes [id number] 50mg Take 1 [facility] (MYRBETRIQ) 0-13 tablet by ity of 50 mg 00:00: mouth in [place] tablet 00 the Medical morning. Branch semaglutide 2021-09 Yes [id number] Inject [facility] (OZEMPIC) 0-13 0.25 mg ity of 0.25 mg or 00:00: under the [place] 0.5 mg(2 00 skin Medical mg/1.5 mL) weekly. Branch PnIj topiramate 2021-09 Yes [id number] 75mg Take 3 [facility] 25 mg 0-13 tablets by ity of tablet 00:00: mouth in [place] 00 the Medical morning Branch and 3 tablets in the evening. busPIRone 2021-09 Yes [id number] 20mg Take 2 [facility] [place] 10 mg 0-13 tablets by [facility] of tablet 00:00: mouth in [place] 00 the Medical morning Branch and 2 tablets in the evening. losartan 50 2021-09 Yes [id number] 50mg Take 1 [facility] mg tablet 0-13 tablet by ity o f 00:00: mouth in [place] 00 the Medical morning Branch and 1 tablet in the evening. mirabegron 2021-09 Yes [id number] 50mg Take 1 [facility] (MYRBETRIQ) 0-13 tablet by ity of 50 mg 00:00: mouth in [place] tablet 00 the Medical morning. Branch semaglutide 2021-09 Yes [id number] Inject [facility] (OZEMPIC) 0-13 0.25 mg ity of 0.25 mg or 00:00: under the [place] 0.5 mg(2 00 skin Medical mg/1.5 mL) weekly. Branch PnIj topiramate 2021-09 Yes [id number] 75mg Take 3 [facility] 25 mg 0-13 tablets by [facility] of tablet 00:00: mouth in [place] 00 the Medical morning Branch and 3 tablets in the evening. busPIRone 2021-09 Yes [id number] 20mg Take 2 [facility] 10 mg 0-13 tablets by [facility] of tablet 00:00: mouth in [place] 00 the Medical morning Branch and 2 tablets in the evening. losartan 50 2021-09 Yes [id number] 50mg Take 1 [facility] mg tablet 0-13 tablet by [facility] o f 00:00: mouth in [place] 00 the Medical morning Branch and 1 tablet in the evening. mirabegron 2021-09 Yes [id number] 50mg Take 1 [facility] (MYRBETRIQ) 0-13 tablet by ity of 50 mg 00:00: mouth in [place] tablet 00 the Medical morning. Branch semaglutide 2021-09 Yes [id number] Inject [facility] (OZEMPIC) 0-13 0.25 mg ity of 0.25 mg or 00:00: under the [place] 0.5 mg(2 00 skin Medical mg/1.5 mL) weekly. Branch PnIj topiramate 2021-09 Yes [id number] 75mg Take 3 [facility] 25 mg 0-13 tablets by [facility] of tablet 00:00: mouth in [place] 00 the Medical morning Branch and 3 tablets in the evening. busPIRone 2021-09 Yes [id number] 20mg Take 2 [facility] [place] 10 mg 0-13 tablets by [facility] of tablet 00:00: mouth in [place] 00 the Medical morning Branch and 2 tablets in the evening. losartan 50 2021-09 Yes [id number] 50mg Take 1 [facility] mg tablet 0-13 tablet by [facility] o f 00:00: mouth in [place] 00 the Medical morning Branch and 1 tablet in the evening. mirabegron 2021-09 Yes [id number] 50mg Take 1 [facility] (MYRBETRIQ) 0-13 tablet by ity of 50 mg 00:00: mouth in [place] tablet 00 the Medical morning. Branch semaglutide 2021-09 Yes [id number] Inject [facility] (OZEMPIC) 0-13 0.25 mg ity of 0.25 mg or 00:00: under the [place] 0.5 mg(2 00 skin Medical mg/1.5 mL) weekly. Branch PnIj topiramate 2021-09 Yes [id number] 75mg Take 3 [facility] 25 mg 0-13 tablets by [facility] of tablet 00:00: mouth in [place] 00 the Medical morning Branch and 3 tablets in the evening. busPIRone 2021-09 Yes [id number] 20mg Take 2 [facility] [place] 10 mg 0-13 tablets by [facility] of tablet 00:00: mouth in [place] 00 the Medical morning Branch and 2 tablets in the evening. losartan 50 2021-09 Yes [id number] 50mg Take 1 [facility] mg tablet 0-13 tablet by [facility] o f 00:00: mouth in [place] 00 the Medical morning Branch and 1 tablet in the evening. mirabegron 2021-09 Yes [id number] 50mg Take 1 [facility] (MYRBETRIQ) 0-13 tablet by it[facility] of 50 mg 00:00: mouth in [place] tablet 00 the Medical morning. Branch semaglutide 2021-09 Yes [id number] Inject [facility] (OZEMPIC) 0-13 0.25 mg [facility] of 0.25 mg or 00:00: under the [place] 0.5 mg(2 00 skin Medical mg/1.5 mL) weekly. Branch PnIj topiramate 2021-09 Yes [id number] 75mg Take 3 [facility] 25 mg 0-13 tablets by [facility] of tablet 00:00: mouth in [place] 00 the Medical morning Branch and 3 tablets in the evening. busPIRone 2021-09 Yes [id number] 20mg Take 2 [facility] [place] 10 mg 0-13 tablets by [facility] of tablet 00:00: mouth in [place] 00 the Medical morning Branch and 2 tablets in the evening. losartan 50 2021-09 Yes [id number] 50mg Take 1 [facility] mg tablet 0-13 tablet by [facility] o f 00:00: mouth in [place] 00 the Medical morning Branch and 1 tablet in the evening. mirabegron 2021-09 Yes [id number] 50mg Take 1 [facility] (MYRBETRIQ) 0-13 tablet by it[facility] of 50 mg 00:00: mouth in [place] tablet 00 the Medical morning. Branch semaglutide 2021-09 Yes [id number] Inject [facility] (OZEMPIC) 0-13 0.25 mg it[facility] of 0.25 mg or 00:00: under the [place] 0.5 mg(2 00 skin Medical mg/1.5 mL) weekly. Branch PnIj topiramate 2021-09 Yes [id number] 75mg Take 3 [facility] 25 mg 0-13 tablets by [facility] of tablet 00:00: mouth in [place] 00 the Medical morning Branch and 3 tablets in the evening. busPIRone 2021-09 Yes [id number] 20mg Take 2 [facility] [place] 10 mg 0-13 tablets by [facility] of tablet 00:00: mouth in [place] 00 the Medical morning Branch and 2 tablets in the evening. losartan 50 2021-09 Yes [id number] 50mg Take 1 [facility] mg tablet 0-13 tablet by [facility] o f 00:00: mouth in [place] 00 the Medical morning Branch and 1 tablet in the evening. mirabegron 2021-09 Yes [id number] 50mg Take 1 [facility] (MYRBETRIQ) 0-13 tablet by [facility] of 50 mg 00:00: mouth in [place] tablet 00 the Medical morning. Branch semaglutide 2021-09 Yes [id number] Inject [facility] (OZEMPIC) 0-13 0.25 mg ity of 0.25 mg or 00:00: under the [place] 0.5 mg(2 00 skin Medical mg/1.5 mL) weekly. Branch PnIj topiramate 2021-09 Yes [id number] 75mg Take 3 [facility] 25 mg 0-13 tablets by [facility] of tablet 00:00: mouth in [place] 00 the Medical morning Branch and 3 tablets in the evening. busPIRone 2021-09 Yes [id number] 20mg Take 2 [facility] [place] 10 mg 0-13 tablets by [facility] of tablet 00:00: mouth in [place] 00 the Medical morning Branch and 2 tablets in the evening. losartan 50 2021-09 Yes [id number] 50mg Take 1 [facility] mg tablet 0-13 tablet by it[facility] o f 00:00: mouth in [place] 00 the Medical morning Branch and 1 tablet in the evening. mirabegron 2021-09 Yes [id number] 50mg Take 1 [facility] (MYRBETRIQ) 0-13 tablet by [facility] of 50 mg 00:00: mouth in [place] tablet 00 the Medical morning. Branch semaglutide 2021-09 Yes [id number] Inject [facility] (OZEMPIC) 0-13 0.25 mg ity of 0.25 mg or 00:00: under the [place] 0.5 mg(2 00 skin Medical mg/1.5 mL) weekly. Branch PnIj topiramate 2021-09 Yes [id number] 75mg Take 3 [facility] 25 mg 0-13 tablets by [facility] of tablet 00:00: mouth in [place] 00 the Medical morning Branch and 3 tablets in the evening. busPIRone 2021-09 Yes [id number] 20mg Take 2 [facility] [place] 10 mg 0-13 tablets by [facility] of tablet 00:00: mouth in [place] 00 the Medical morning Branch and 2 tablets in the evening. losartan 50 2021-09 Yes [id number] 50mg Take 1 [facility] mg tablet 0-13 tablet by it[facility] o f 00:00: mouth in [place] 00 the Medical morning Branch and 1 tablet in the evening. mirabegron 2021-09 Yes [id number] 50mg Take 1 [facility] (MYRBETRIQ) 0-13 tablet by [facility]y of 50 mg 00:00: mouth in [place] tablet 00 the Medical morning. Branch semaglutide 2021-09 Yes [id number] Inject [facility] (OZEMPIC) 0-13 0.25 mg ity of 0.25 mg or 00:00: under the [place] 0.5 mg(2 00 skin Medical mg/1.5 mL) weekly. Branch PnIj topiramate 2021-09 Yes [id number] 75mg Take 3 [facility] 25 mg 0-13 tablets by [facility] of tablet 00:00: mouth in [place] 00 the Medical morning Branch and 3 tablets in the evening. busPIRone 2021-09 Yes [id number] 20mg Take 2 [facility] [place] 10 mg 0-13 tablets by [facility] of tablet 00:00: mouth in [place] 00 the Medical morning Branch and 2 tablets in the evening. losartan 50 2021-09 Yes [id number] 50mg Take 1 [facility] mg tablet 0-13 tablet by ity o f 00:00: mouth in [place] 00 the Medical morning Branch and 1 tablet in the evening. mirabegron 2021-09 Yes [id number] 50mg Take 1 [facility] (MYRBETRIQ) 0-13 tablet by it[facility] of 50 mg 00:00: mouth in [place] tablet 00 the Medical morning. Branch semaglutide 2021-09 Yes [id number] Inject [facility] (OZEMPIC) 0-13 0.25 mg ity of 0.25 mg or 00:00: under the [place] 0.5 mg(2 00 skin Medical mg/1.5 mL) weekly. Branch PnIj topiramate 2021-09 Yes [id number] 75mg Take 3 [facility] 25 mg 0-13 tablets by [facility] of tablet 00:00: mouth in [place] 00 the Medical morning Branch and 3 tablets in the evening. losartan 50 2021-09 Yes [id number] 50mg Take 1 [facility] mg tablet 0-13 tablet by ity o f 00:00: mouth in [place] 00 the Medical morning Branch and 1 tablet in the evening. mirabegron 2021-09 Yes [id number] 50mg Take 1 [facility] (MYRBETRIQ) 0-13 tablet by [facility] of 50 mg 00:00: mouth in [place] tablet 00 the Medical morning. Branch semaglutide 2021-09 Yes [id number] Inject [facility] (OZEMPIC) 0-13 0.25 mg ity of 0.25 mg or 00:00: under the [place] 0.5 mg(2 00 skin Medical mg/1.5 mL) weekly. Branch PnIj topiramate 2021-09 Yes [id number] 75mg Take 3 [facility] 25 mg 0-13 tablets by [facility] of tablet 00:00: mouth in [place] 00 the Medical morning Branch and 3 tablets in the evening. losartan 50 2021-09 Yes [id number] 50mg Take 1 [facility] mg tablet 0-13 tablet by ity o f 00:00: mouth in [place] 00 the Medical morning Branch and 1 tablet in the evening. mirabegron 2021-09 Yes [id number] 50mg Take 1 [facility] (MYRBETRIQ) 0-13 tablet by [facility] of 50 mg 00:00: mouth in [place] tablet 00 the Medical morning. Branch semaglutide 2021-09 Yes [id number] Inject [facility] (OZEMPIC) 0-13 0.25 mg ity of 0.25 mg or 00:00: under the [place] 0.5 mg(2 00 skin Medical mg/1.5 mL) weekly. Branch PnIj topiramate 2021-09 Yes [id number] 75mg Take 3 [facility] 25 mg 0-13 tablets by [facility] of tablet 00:00: mouth in [place] 00 the Medical morning Branch and 3 tablets in the evening. losartan 50 2021-09 Yes [id number] 50mg Take 1 [facility] mg tablet 0-13 tablet by ity o f 00:00: mouth in [place] 00 the Medical morning Branch and 1 tablet in the evening. mirabegron 2021-09 Yes [id number] 50mg Take 1 [facility] (MYRBETRIQ) 0-13 tablet by [facility] of 50 mg 00:00: mouth in [place] tablet 00 the Medical morning. Branch semaglutide 2021-09 Yes [id number] Inject [facility] (OZEMPIC) 0-13 0.25 mg ity of 0.25 mg or 00:00: under the [place] 0.5 mg(2 00 skin Medical mg/1.5 mL) weekly. Branch PnIj topiramate 2021-09 Yes [id number] 75mg Take 3 [facility] 25 mg 0-13 tablets by [facility] of tablet 00:00: mouth in [place] 00 the Medical morning Branch and 3 tablets in the evening. losartan 50 2021-09 Yes [id number] 50mg Take 1 [facility] mg tablet 0-13 tablet by ity o f 00:00: mouth in [place] 00 the Medical morning Branch and 1 tablet in the evening. mirabegron 2021-09 Yes [id number] 50mg Take 1 [facility] (MYRBETRIQ) 0-13 tablet by [facility] of 50 mg 00:00: mouth in [place] tablet 00 the Medical morning. Branch semaglutide 2021-09 Yes [id number] Inject [facility] (OZEMPIC) 0-13 0.25 mg ity of 0.25 mg or 00:00: under the [place] 0.5 mg(2 00 skin Medical mg/1.5 mL) weekly. Branch PnIj topiramate 2021-09 Yes [id number] 75mg Take 3 [facility] 25 mg 0-13 tablets by [facility] of tablet 00:00: mouth in [place] the Medical morning Branch and 3 tablets in the evening. losartan 50 2021-09 Yes [id number] 50mg Take 1 [facility] mg tablet 0-13 tablet by ity o f 00:00: mouth in [place] 00 the Medical morning Branch and 1 tablet in the evening. mirabegron 2021-09 Yes [id number] 50mg Take 1 [facility] (MYRBETRIQ) 0-13 tablet by [facility] of 50 mg 00:00: mouth in [place] tablet 00 the Medical morning. Branch semaglutide 2021-09 Yes [id number] Inject [facility] (OZEMPIC) 0-13 0.25 mg ity of 0.25 mg or 00:00: under the [place] 0.5 mg(2 00 skin Medical mg/1.5 mL) weekly. Branch PnIj topiramate 2021-09 Yes [id number] 75mg Take 3 [facility] 25 mg 0-13 tablets by [facility] of tablet 00:00: mouth in [place] 00 the Medical morning Branch and 3 tablets in the evening. losartan 50 2021-09 Yes [id number] 50mg Take 1 [facility] mg tablet 0-13 tablet by ity o f 00:00: mouth in [place] 00 the Medical morning Branch and 1 tablet in the evening. mirabegron 2021-09 Yes [id number] 50mg Take 1 [facility] (MYRBETRIQ) 0-13 tablet by it[facility] of 50 mg 00:00: mouth in [place] tablet 00 the Medical morning. Branch semaglutide 2021-09 Yes [id number] Inject [facility] (OZEMPIC) 0-13 0.25 mg ity of 0.25 mg or 00:00: under the [place] 0.5 mg(2 00 skin Medical mg/1.5 mL) weekly. Branch PnIj topiramate 2021-09 Yes [id number] 75mg Take 3 [facility] 25 mg 0-13 tablets by [facility] of tablet 00:00: mouth in [place] the Medical morning Branch and 3 tablets in the evening. losartan 50 2021-09 Yes [id number] 50mg Take 1 [facility] mg tablet 0-13 tablet by ity o f 00:00: mouth in [place] the Medical morning Branch and 1 tablet in the evening. mirabegron 2021-09 Yes [id number] 50mg Take 1 [facility] (MYRBETRIQ) 0-13 tablet by ity of 50 mg 00:00: mouth in [place] tablet 00 the Medical morning. Branch semaglutide 2021-09 Yes [id number] Inject [facility] (OZEMPIC) 0-13 0.25 mg ity of 0.25 mg or 00:00: under the [place] 0.5 mg(2 00 skin Medical mg/1.5 mL) weekly. Branch PnIj topiramate 2021-09 Yes [id number] 75mg Take 3 [facility] 25 mg 0-13 tablets by [facility] of tablet 00:00: mouth in [place] the Medical morning Branch and 3 tablets in the evening. losartan 50 2021-09 Yes [id number] 50mg Take 1 [facility] mg tablet 0-13 tablet by ity o f 00:00: mouth in [place] 00 the Medical morning Branch and 1 tablet in the evening. mirabegron 2021-09 Yes [id number] 50mg Take 1 [facility] (MYRBETRIQ) 0-13 tablet by ity of 50 mg 00:00: mouth in [place] tablet 00 the Medical morning. Branch semaglutide 2021-09 Yes [id number] Inject [facility] (OZEMPIC) 0-13 0.25 mg ity of 0.25 mg or 00:00: under the [place] 0.5 mg(2 00 skin Medical mg/1.5 mL) weekly. Branch PnIj topiramate 2021-09 Yes [id number] 75mg Take 3 [facility] 25 mg 0-13 tablets by [facility] of tablet 00:00: mouth in [place] 00 the Medical morning Branch and 3 tablets in the evening. losartan 50 2021-09 Yes [id number] 50mg Take 1 [facility] mg tablet 0-13 tablet by ity o f 00:00: mouth in [place] 00 the Medical morning Branch and 1 tablet in the evening. mirabegron 2021-09 Yes [id number] 50mg Take 1 [facility] (MYRBETRIQ) 0-13 tablet by ity of 50 mg 00:00: mouth in [place] tablet 00 the Medical morning. Branch semaglutide 2021-09 Yes [id number] Inject [facility] (OZEMPIC) 0-13 0.25 mg ity of 0.25 mg or 00:00: under the [place] 0.5 mg(2 00 skin Medical mg/1.5 mL) weekly. Branch PnIj topiramate 2021-09 Yes [id number] 75mg Take 3 [facility] 25 mg 0-13 tablets by [facility] of tablet 00:00: mouth in [place] 00 the Medical morning Branch and 3 tablets in the evening. losartan 50 2021-09 Yes [id number] 50mg Take 1 [facility] mg tablet 0-13 tablet by ity o f 00:00: mouth in [place] 00 the Medical morning Branch and 1 tablet in the evening. mirabegron 2021-09 Yes [id number] 50mg Take 1 [facility] (MYRBETRIQ) 0-13 tablet by ity of 50 mg 00:00: mouth in [place] tablet 00 the Medical morning. Branch semaglutide 2021-09 Yes [id number] Inject [facility] (OZEMPIC) 0-13 0.25 mg ity of 0.25 mg or 00:00: under the [place] 0.5 mg(2 00 skin Medical mg/1.5 mL) weekly. Branch PnIj topiramate 2021-09 Yes [id number] 75mg Take 3 [facility] 25 mg 0-13 tablets by [facility] of tablet 00:00: mouth in [place] 00 the Medical morning Branch and 3 tablets in the evening. losartan 50 2021-09 Yes [id number] 50mg Take 1 [facility] mg tablet 0-13 tablet by ity o f 00:00: mouth in [place] 00 the Medical morning Branch and 1 tablet in the evening. mirabegron 2021-09 Yes [id number] 50mg Take 1 [facility] (MYRBETRIQ) 0-13 tablet by ity of 50 mg 00:00: mouth in [place] tablet 00 the Medical morning. Branch semaglutide 2021-09 Yes [id number] Inject [facility] (OZEMPIC) 0-13 0.25 mg ity of 0.25 mg or 00:00: under the [place] 0.5 mg(2 00 skin Medical mg/1.5 mL) weekly. Branch PnIj topiramate 2021-09 Yes [id number] 75mg Take 3 [facility] 25 mg 0-13 tablets by [facility] of tablet 00:00: mouth in [place] 00 the Medical morning Branch and 3 tablets in the evening. losartan 50 2021-09 Yes [id number] 50mg Take 1 [facility] mg tablet 0-13 tablet by ity o f 00:00: mouth in [place] 00 the Medical morning Branch and 1 tablet in the evening. mirabegron 2021-09 Yes [id number] 50mg Take 1 [facility] (MYRBETRIQ) 0-13 tablet by ity of 50 mg 00:00: mouth in [place] tablet 00 the Medical morning. Branch semaglutide 2021-09 Yes [id number] Inject [facility] (OZEMPIC) 0-13 0.25 mg ity of 0.25 mg or 00:00: under the [place] 0.5 mg(2 00 skin Medical mg/1.5 mL) weekly. Branch PnIj topiramate 2021-09 Yes [id number] 75mg Take 3 [facility] 25 mg 0-13 tablets by [facility] of tablet 00:00: mouth in [place] 00 the Medical morning Branch and 3 tablets in the evening. losartan 50 2021-09 Yes [id number] 50mg Take 1 [facility] mg tablet 0-13 tablet by ity o f 00:00: mouth in [place] 00 the Medical morning Branch and 1 tablet in the evening. mirabegron 2021-09 Yes [id number] 50mg Take 1 [facility] (MYRBETRIQ) 0-13 tablet by ity of 50 mg 00:00: mouth in [place] tablet 00 the Medical morning. Branch semaglutide 2021-09 Yes [id number] Inject [facility] (OZEMPIC) 0-13 0.25 mg ity of 0.25 mg or 00:00: under the [place] 0.5 mg(2 00 skin Medical mg/1.5 mL) weekly. Branch PnIj topiramate 2021-09 Yes [id number] 75mg Take 3 [facility] 25 mg 0-13 tablets by [facility] of tablet 00:00: mouth in [place] 00 the Medical morning Branch and 3 tablets in the evening. losartan 50 2021-09 Yes [id number] 50mg Take 1 [facility] mg tablet 0-13 tablet by ity o f 00:00: mouth in [place] 00 the Medical morning Branch and 1 tablet in the evening. mirabegron 2021-09 Yes [id number] 50mg Take 1 [facility] (MYRBETRIQ) 0-13 tablet by ity of 50 mg 00:00: mouth in [place] tablet 00 the Medical morning. Branch semaglutide 2021-09 Yes [id number] Inject [facility] (OZEMPIC) 0-13 0.25 mg ity of 0.25 mg or 00:00: under the [place] 0.5 mg(2 00 skin Medical mg/1.5 mL) weekly. Branch PnIj topiramate 2021-09 Yes [id number] 75mg Take 3 [facility] 25 mg 0-13 tablets by [facility] of tablet 00:00: mouth in [place] 00 the Medical morning Branch and 3 tablets in the evening. losartan 50 2021-09 Yes [id number] 50mg Take 1 [facility] mg tablet 0-13 tablet by ity o f 00:00: mouth in [place] 00 the Medical morning Branch and 1 tablet in the evening. mirabegron 2021-09 Yes [id number] 50mg Take 1 [facility] (MYRBETRIQ) 0-13 tablet by ity of 50 mg 00:00: mouth in [place] tablet 00 the Medical morning. Branch semaglutide 2021-09 Yes [id number] Inject [facility] (OZEMPIC) 0-13 0.25 mg ity of 0.25 mg or 00:00: under the [place] 0.5 mg(2 00 skin Medical mg/1.5 mL) weekly. Branch PnIj topiramate 2021-09 Yes [id number] 75mg Take 3 [facility] 25 mg 0-13 tablets by [facility] of tablet 00:00: mouth in [place] 00 the Medical morning Branch and 3 tablets in the evening. losartan 50 2021-09 Yes [id number] 50mg Take 1 [facility] mg tablet 0-13 tablet by ity o f 00:00: mouth in [place] 00 the Medical morning Branch and 1 tablet in the evening. mirabegron 2021-09 Yes [id number] 50mg Take 1 [facility] (MYRBETRIQ) 0-13 tablet by ity of 50 mg 00:00: mouth in [place] tablet 00 the Medical morning. Branch semaglutide 2021-09 Yes [id number] Inject [facility] (OZEMPIC) 0-13 0.25 mg ity of 0.25 mg or 00:00: under the [place] 0.5 mg(2 00 skin Medical mg/1.5 mL) weekly. Branch PnIj topiramate 2021-09 Yes [id number] 75mg Take 3 [facility] 25 mg 0-13 tablets by [facility] of tablet 00:00: mouth in [place] 00 the Medical morning Branch and 3 tablets in the evening. losartan 50 2021-09 Yes [id number] 50mg Take 1 [facility] mg tablet 0-13 tablet by ity o f 00:00: mouth in [place] 00 the Medical morning Branch and 1 tablet in the evening. mirabegron 2021-09 Yes [id number] 50mg Take 1 [facility] (MYRBETRIQ) 0-13 tablet by [facility]y of 50 mg 00:00: mouth in [place] tablet 00 the Medical morning. Branch semaglutide 2021-09 Yes [id number] Inject [facility] (OZEMPIC) 0-13 0.25 mg ity of 0.25 mg or 00:00: under the [place] 0.5 mg(2 00 skin Medical mg/1.5 mL) weekly. Branch PnIj topiramate 2021-09 Yes [id number] 75mg Take 3 [facility] 25 mg 0-13 tablets by [facility] of tablet 00:00: mouth in [place] 00 the Medical morning Branch and 3 tablets in the evening. losartan 50 2021-09 Yes [id number] 50mg Take 1 [facility] mg tablet 0-13 tablet by ity o f 00:00: mouth in [place] 00 the Medical morning Branch and 1 tablet in the evening. mirabegron 2021-09 Yes [id number] 50mg Take 1 [facility] (MYRBETRIQ) 0-13 tablet by [facility]y of 50 mg 00:00: mouth in [place] tablet 00 the Medical morning. Branch semaglutide 2021-09 Yes [id number] Inject [facility] (OZEMPIC) 0-13 0.25 mg ity of 0.25 mg or 00:00: under the [place] 0.5 mg(2 00 skin Medical mg/1.5 mL) weekly. Branch PnIj topiramate 2021-09 Yes [id number] 75mg Take 3 [facility] 25 mg 0-13 tablets by [facility] of tablet 00:00: mouth in [place] 00 the Medical morning Branch and 3 tablets in the evening. losartan 50 2021-09 Yes [id number] 50mg Take 1 [facility] mg tablet 0-13 tablet by ity o f 00:00: mouth in [place] 00 the Medical morning Branch and 1 tablet in the evening. mirabegron 2021-09 Yes [id number] 50mg Take 1 [facility] (MYRBETRIQ) 0-13 tablet by ity of 50 mg 00:00: mouth in [place] tablet 00 the Medical morning. Branch semaglutide 2021-09 Yes [id number] Inject [facility] (OZEMPIC) 0-13 0.25 mg ity of 0.25 mg or 00:00: under the [place] 0.5 mg(2 00 skin Medical mg/1.5 mL) weekly. Branch PnIj topiramate 2021-09 Yes [id number] 75mg Take 3 [facility] 25 mg 0-13 tablets by [facility] of tablet 00:00: mouth in [place] 00 the Medical morning Branch and 3 tablets in the evening. losartan 50 2021-09 Yes [id number] 50mg Take 1 [facility] mg tablet 0-13 tablet by ity o f 00:00: mouth in [place] 00 the Medical morning Branch and 1 tablet in the evening. mirabegron 2021-09 Yes [id number] 50mg Take 1 [facility] (MYRBETRIQ) 0-13 tablet by [facility] of 50 mg 00:00: mouth in [place] tablet 00 the Medical morning. Branch semaglutide 2021-09 Yes [id number] Inject [facility] (OZEMPIC) 0-13 0.25 mg ity of 0.25 mg or 00:00: under the [place] 0.5 mg(2 00 skin Medical mg/1.5 mL) weekly. Branch PnIj topiramate 2021-09 Yes [id number] 75mg Take 3 [facility] 25 mg 0-13 tablets by [facility] of tablet 00:00: mouth in [place] 00 the Medical morning Branch and 3 tablets in the evening. losartan 50 2021-09 Yes [id number] 50mg Take 1 [facility] mg tablet 0-13 tablet by ity o f 00:00: mouth in [place] 00 the Medical morning Branch and 1 tablet in the evening. mirabegron 2021-09 Yes [id number] 50mg Take 1 [facility] (MYRBETRIQ) 0-13 tablet by [facility]y of 50 mg 00:00: mouth in [place] tablet 00 the Medical morning. Branch semaglutide 2021-09 Yes [id number] Inject [facility] (OZEMPIC) 0-13 0.25 mg ity of 0.25 mg or 00:00: under the [place] 0.5 mg(2 00 skin Medical mg/1.5 mL) weekly. Branch PnIj topiramate 2021-09 Yes [id number] 75mg Take 3 [facility] 25 mg 0-13 tablets by [facility] of tablet 00:00: mouth in [place] 00 the Medical morning Branch and 3 tablets in the evening. losartan 50 2021-09 Yes [id number] 50mg Take 1 [facility] mg tablet 0-13 tablet by ity o f 00:00: mouth in [place] 00 the Medical morning Branch and 1 tablet in the evening. mirabegron 2021-09 Yes [id number] 50mg Take 1 [facility] (MYRBETRIQ) 0-13 tablet by [facility]y of 50 mg 00:00: mouth in [place] tablet 00 the Medical morning. Branch topiramate 2021-09 Yes [id number] 75mg Take 3 [facility] 25 mg 0-13 tablets by [facility] of tablet 00:00: mouth in [place] 00 the Medical morning Branch and 3 tablets in the evening. losartan 50 2021-09 Yes [id number] 50mg Take 1 [facility] mg tablet 0-13 tablet by ity o f 00:00: mouth in [place] 00 the Medical morning Branch and 1 tablet in the evening. mirabegron 2021-09 Yes [id number] 50mg Take 1 [facility] (MYRBETRIQ) 0-13 tablet by ity of 50 mg 00:00: mouth in [place] tablet 00 the Medical morning. Branch topiramate 2021-09 Yes [id number] 75mg Take 3 [facility] 25 mg 0-13 tablets by [facility] of tablet 00:00: mouth in [place] 00 the Medical morning Branch and 3 tablets in the evening. losartan 50 2021-09 Yes [id number] 50mg Take 1 [facility] mg tablet 0-13 tablet by [facility]y o f 00:00: mouth in [place] 00 the Medical morning Branch and 1 tablet in the evening. mirabegron 2021-09 Yes [id number] 50mg Take 1 [facility] (MYRBETRIQ) 0-13 tablet by ity of 50 mg 00:00: mouth in [place] tablet 00 the Medical morning. Branch topiramate 2021-09 Yes [id number] 75mg Take 3 [facility] 25 mg 0-13 tablets by [facility] of tablet 00:00: mouth in [place] 00 the Medical morning Branch and 3 tablets in the evening. losartan 50 2021-09 Yes [id number] 50mg Take 1 [facility] mg tablet 0-13 tablet by ity o f 00:00: mouth in [place] 00 the Medical morning Branch and 1 tablet in the evening. mirabegron 2021-09 Yes [id number] 50mg Take 1 [facility] (MYRBETRIQ) 0-13 tablet by [facility]y of 50 mg 00:00: mouth in [place] tablet 00 the Medical morning. Branch topiramate 2021-09 Yes [id number] 75mg Take 3 [facility] 25 mg 0-13 tablets by [facility] of tablet 00:00: mouth in [place] 00 the Medical morning Branch and 3 tablets in the evening. losartan 50 2021-09 Yes [id number] 50mg Take 1 [facility] mg tablet 0-13 tablet by ity o f 00:00: mouth in [place] 00 the Medical morning Branch and 1 tablet in the evening. mirabegron 2021-09 Yes [id number] 50mg Take 1 [facility] (MYRBETRIQ) 0-13 tablet by [facility]y of 50 mg 00:00: mouth in [place] tablet 00 the Medical morning. Branch topiramate 2021-09 Yes [id number] 75mg Take 3 [facility] 25 mg 0-13 tablets by [facility] of tablet 00:00: mouth in [place] 00 the Medical morning Branch and 3 tablets in the evening. losartan 50 2021-09 Yes [id number] 50mg Take 1 [facility] mg tablet 0-13 tablet by [facility]y o f 00:00: mouth in [place] 00 the Medical morning Branch and 1 tablet in the evening. mirabegron 2021-09 Yes [id number] 50mg Take 1 [facility] (MYRBETRIQ) 0-13 tablet by [facility]y of 50 mg 00:00: mouth in [place] tablet 00 the Medical morning. Branch topiramate 2021-09 Yes [id number] 75mg Take 3 [facility] 25 mg 0-13 tablets by ity of tablet 00:00: mouth in [place] 00 the Medical morning Branch and 3 tablets in the evening. losartan 50 2021-09 Yes [id number] 50mg Take 1 [facility] mg tablet 0-13 tablet by ity o f 00:00: mouth in [place] 00 the Medical morning Branch and 1 tablet in the evening. mirabegron 2021-09 Yes [id number] 50mg Take 1 [facility] (MYRBETRIQ) 0-13 tablet by ity of 50 mg 00:00: mouth in [place] tablet 00 the Medical morning. Branch topiramate 2021-09 Yes [id number] 75mg Take 3 [facility] 25 mg 0-13 tablets by ity of tablet 00:00: mouth in [place] 00 the Medical morning Branch and 3 tablets in the evening. losartan 50 2021-09 Yes [id number] 50mg Take 1 [facility] mg tablet 0-13 tablet by ity o f 00:00: mouth in [place] 00 the Medical morning Branch and 1 tablet in the evening. mirabegron 2021-09 Yes [id number] 50mg Take 1 [facility] (MYRBETRIQ) 0-13 tablet by ity of 50 mg 00:00: mouth in [place] tablet 00 the Medical morning. Branch topiramate 2021-09 Yes [id number] 75mg Take 3 [facility] 25 mg 0-13 tablets by ity of tablet 00:00: mouth in [place] 00 the Medical morning Branch and 3 tablets in the evening. losartan 50 2021-09 Yes [id number] 50mg Take 1 [facility] mg tablet 0-13 tablet by ity o f 00:00: mouth in [place] 00 the Medical morning Branch and 1 tablet in the evening. mirabegron 2021-09 Yes [id number] 50mg Take 1 [facility] (MYRBETRIQ) 0-13 tablet by ity of 50 mg 00:00: mouth in [place] tablet 00 the Medical morning. Branch topiramate 2021-09 Yes [id number] 75mg Take 3 [facility] 25 mg 0-13 tablets by ity of tablet 00:00: mouth in [place] 00 the Medical morning Branch and 3 tablets in the evening. losartan 50 2021-09 Yes [id number] 50mg Take 1 [facility] mg tablet 0-13 tablet by ity o f 00:00: mouth in [place] 00 the Medical morning Branch and 1 tablet in the evening. mirabegron 2021-09 Yes [id number] 50mg Take 1 [facility] (MYRBETRIQ) 0-13 tablet by ity of 50 mg 00:00: mouth in [place] tablet 00 the Medical morning. Branch topiramate 2021-09 Yes [id number] 75mg Take 3 [facility] 25 mg 0-13 tablets by ity of tablet 00:00: mouth in [place] 00 the Medical morning Branch and 3 tablets in the evening. losartan 50 2021-09 Yes [id number] 50mg Take 1 [facility] mg tablet 0-13 tablet by ity o f 00:00: mouth in [place] 00 the Medical morning Branch and 1 tablet in the evening. mirabegron 2021-09 Yes [id number] 50mg Take 1 [facility] (MYRBETRIQ) 0-13 tablet by ity of 50 mg 00:00: mouth in [place] tablet 00 the Medical morning. Branch topiramate 2021-09 Yes [id number] 75mg Take 3 [facility] 25 mg 0-13 tablets by ity of tablet 00:00: mouth in [place] 00 the Medical morning Branch and 3 tablets in the evening. losartan 50 2021-09 Yes [id number] 50mg Take 1 [facility] mg tablet 0-13 tablet by ity o f 00:00: mouth in [place] 00 the Medical morning Branch and 1 tablet in the evening. mirabegron 2021-09 Yes [id number] 50mg Take 1 [facility] (MYRBETRIQ) 0-13 tablet by ity of 50 mg 00:00: mouth in [place] tablet 00 the Medical morning. Branch topiramate 2021-09 Yes [id number] 75mg Take 3 [facility] 25 mg 0-13 tablets by ity of tablet 00:00: mouth in [place] 00 the Medical morning Branch and 3 tablets in the evening. losartan 50 2021-09 Yes [id number] 50mg Take 1 [facility] mg tablet 0-13 tablet by ity o f 00:00: mouth in [place] 00 the Medical morning Branch and 1 tablet in the evening. mirabegron 2021-09 Yes [id number] 50mg Take 1 [facility] (MYRBETRIQ) 0-13 tablet by ity of 50 mg 00:00: mouth in [place] tablet 00 the Medical morning. Branch topiramate 2021-09 Yes [id number] 75mg Take 3 [facility] 25 mg 0-13 tablets by ity of tablet 00:00: mouth in [place] 00 the Medical morning Branch and 3 tablets in the evening. losartan 50 2021-09 Yes [id number] 50mg Take 1 [facility] mg tablet 0-13 tablet by ity o f 00:00: mouth in [place] 00 the Medical morning Branch and 1 tablet in the evening. mirabegron 2021-09 Yes [id number] 50mg Take 1 [facility] (MYRBETRIQ) 0-13 tablet by ity of 50 mg 00:00: mouth in [place] tablet 00 the Medical morning. Branch topiramate 2021-09 Yes [id number] 75mg Take 3 [facility] 25 mg 0-13 tablets by ity of tablet 00:00: mouth in [place] 00 the Medical morning Branch and 3 tablets in the evening. losartan 50 2021-09 Yes [id number] 50mg Take 1 [facility] mg tablet 0-13 tablet by ity o f 00:00: mouth in [place] 00 the Medical morning Branch and 1 tablet in the evening. mirabegron 2021-09 Yes [id number] 50mg Take 1 [facility] (MYRBETRIQ) 0-13 tablet by ity of 50 mg 00:00: mouth in [place] tablet 00 the Medical morning. Branch topiramate 2021-09 Yes [id number] 75mg Take 3 [facility] 25 mg 0-13 tablets by ity of tablet 00:00: mouth in [place] 00 the Medical morning Branch and 3 tablets in the evening. losartan 50 2021-09 Yes [id number] 50mg Take 1 [facility] mg tablet 0-13 tablet by ity o f 00:00: mouth in [place] 00 the Medical morning Branch and 1 tablet in the evening. mirabegron 2021-09 Yes [id number] 50mg Take 1 [facility] (MYRBETRIQ) 0-13 tablet by ity of 50 mg 00:00: mouth in [place] tablet 00 the Medical morning. Branch topiramate 2021-09 Yes [id number] 75mg Take 3 [facility] 25 mg 0-13 tablets by ity of tablet 00:00: mouth in [place] 00 the Medical morning Branch and 3 tablets in the evening. losartan 50 2021-09 Yes [id number] 50mg Take 1 [facility] mg tablet 0-13 tablet by ity o f 00:00: mouth in [place] 00 the Medical morning Branch and 1 tablet in the evening. mirabegron 2021-09 Yes [id number] 50mg Take 1 [facility] (MYRBETRIQ) 0-13 tablet by ity of 50 mg 00:00: mouth in [place] tablet 00 the Medical morning. Branch topiramate 2021-09 Yes [id number] 75mg Take 3 [facility] 25 mg 0-13 tablets by ity of tablet 00:00: mouth in [place] 00 the Medical morning Branch and 3 tablets in the evening. losartan 50 2021-09 Yes [id number] 50mg Take 1 [facility] mg tablet 0-13 tablet by ity o f 00:00: mouth in [place] 00 the Medical morning Branch and 1 tablet in the evening. topiramate 2021-09 Yes [id number] 75mg Take 3 [facility] 25 mg 0-13 tablets by ity of tablet 00:00: mouth in [place] [address] the Medical morning Branch and 3 tablets in the evening. losartan 50 2021-09 Yes [id number] 50mg Take 1 [facility] mg tablet 0-13 tablet by ity o f 00:00: mouth in [place] [address] the Medical morning Branch and 1 tablet in the evening. topiramate 2021-09 Yes [id number] 75mg Take 3 [facility] 25 mg 0-13 tablets by ity of tablet 00:00: mouth in [place] [address] the Medical morning Branch and 3 tablets in the evening. losartan 50 2021-09 Yes [id number] 50mg Take 1 [facility] mg tablet 0-13 tablet by ity o f 00:00: mouth in [place] [address] the Medical morning Branch and 1 tablet in the evening. topiramate 2021-09 Yes [id number] 75mg Take 3 [facility] 25 mg 0-13 tablets by ity of tablet 00:00: mouth in [place] [address] the Medical morning Branch and 3 tablets in the evening. losartan 50 2021-09 Yes [id number] 50mg Take 1 [facility] mg tablet 0-13 tablet by ity o f 00:00: mouth in [place] [address] the Medical morning Branch and 1 tablet in the evening. topiramate 2021-09 Yes [id number] 75mg Take 3 [facility] 25 mg 0-13 tablets by ity of tablet 00:00: mouth in [place] [address] the Medical morning Branch and 3 tablets in the evening. losartan 50 2021-09 Yes [id number] 50mg Take 1 [facility] mg tablet 0-13 tablet by ity o f 00:00: mouth in [place] 00 the Medical morning Branch and 1 tablet in the evening. topiramate 2021-09 Yes [id number] 75mg Take 3 [facility] 25 mg 0-13 tablets by ity of tablet 00:00: mouth in [place] 00 the Medical morning Branch and 3 tablets in the evening. losartan 50 2021-09 Yes [id number] 50mg Take 1 [facility] mg tablet 0-13 tablet by ity o f 00:00: mouth in [place] 00 the Medical morning Branch and 1 tablet in the evening. topiramate 2021-09 Yes [id number] 75mg Take 3 [facility] 25 mg 0-13 tablets by ity of tablet 00:00: mouth in [place] 00 the Medical morning Branch and 3 tablets in the evening. losartan 50 2021-09 Yes [id number] 50mg Take 1 [facility] mg tablet 0-13 tablet by ity o f 00:00: mouth in [place] 00 the Medical morning Branch and 1 tablet in the evening. topiramate 2021-09 Yes [id number] 75mg Take 3 [facility] 25 mg 0-13 tablets by ity of tablet 00:00: mouth in [place] 00 the Medical morning Branch and 3 tablets in the evening. losartan 50 2021-09 Yes [id number] 50mg Take 1 [facility] mg tablet 0-13 tablet by ity o f 00:00: mouth in [place] 00 the Medical morning Branch and 1 tablet in the evening. topiramate 2021-09 Yes [id number] 75mg Take 3 [facility] 25 mg 0-13 tablets by ity of tablet 00:00: mouth in [place] 00 the Medical morning Branch and 3 tablets in the evening. losartan 50 2021-09 Yes [id number] 50mg Take 1 [facility] mg tablet 0-13 tablet by ity o f 00:00: mouth in [place] 00 the Medical morning Branch and 1 tablet in the evening. topiramate 2021-09 Yes [id number] 75mg Take 3 [facility] 25 mg 0-13 tablets by ity of tablet 00:00: mouth in [place] 00 the Medical morning Branch and 3 tablets in the evening. mirabegron 2021-09 2023- No [id number] 50mg Take 1 [facility] (MYRBETRIQ) 0-13 - tablet by it y of 50 mg 00:00: 00:00 mouth in [place] tablet 00 :00 the Medical morning. [place] mirabegron 2021-09- No [id number] 50mg Take 1 [facility] (MYRBETRIQ) 11-17 tablet by it y of 50 mg 00:00: 00:00 mouth in [place] tablet 00 :00 the Medical morning. [place] mirabegron 2021-09- No [id number] 50mg Take 1 [facility] (MYRBETRIQ) 11-17 tablet by it y of 50 mg 00:00: 00:00 mouth in [place] tablet 00 :00 the Medical morning. [place] semaglutide 2021-09- No [id number] Inject [facility] (OZEMPIC) 011-02 0.25 mg ity of 0.25 mg or 00:00: 00:00 under the [place] 0.5 mg(2 00 :00 skin Medical mg/1.5 mL) weekly. [place] semaglutide 2021-09- No [id number] Inject [facility] (OZEMPIC) 011-02 0.25 mg ity of 0.25 mg or 00:00: 00:00 under the [place] 0.5 mg(2 00 :00 skin Medical mg/1.5 mL) weekly. [place] semaglutide 2021-09- No [id number] Inject [facility] (OZEMPIC) 011-02 0.25 mg ity of 0.25 mg or 00:00: 00:00 under the [place] 0.5 mg(2 00 :00 skin Medical mg/1.5 mL) weekly. [place] semaglutide 2021-09- No [id number] Inject [facility] (OZEMPIC) 0- 0.25 mg ity of 0.25 mg or 00:00: 00:00 under the [place] 0.5 mg(2 00 :00 skin Medical mg/1.5 mL) weekly. [place] semaglutide 2021-09- No [id number] Inject [facility] (OZEMPIC) 0- 0.25 mg ity of 0.25 mg or 00:00: 00:00 under the [place] 0.5 mg(2 00 :00 skin Medical mg/1.5 mL) weekly. [place] semaglutide 2021-09- No [id number] Inject [facility] (OZEMPIC) 0 02-07 0.25 mg ity of 0.25 mg or 00:00: 00:00 under the [place] 0.5 mg(2 00 :00 skin Medical mg/1.5 mL) weekly. [place] semaglutide 2021-09- No [id number] Inject [facility] (OZEMPIC) 0 02-07 0.25 mg ity of 0.25 mg or 00:00: 00:00 under the [place] 0.5 mg(2 00 :00 skin Medical mg/1.5 mL) weekly. [place] semaglutide 2021-09- No [id number] Inject [facility] (OZEMPIC) 0-07 0.25 mg ity of 0.25 mg or 00:00: 00:00 under the [place] 0.5 mg(2 00 :00 skin Medical mg/1.5 mL) weekly. [place] semaglutide 2021-09- No [id number] Inject [facility] (OZEMPIC) 0-07 0.25 mg ity of 0.25 mg or 00:00: 00:00 under the [place] 0.5 mg(2 00 :00 skin Medical mg/1.5 mL) weekly. [place] semaglutide 2021-09- No [id number] Inject [facility] (OZEMPIC) 0-07 0.25 mg ity of 0.25 mg or 00:00: 00:00 under the [place] 0.5 mg(2 00 :00 skin Medical mg/1.5 mL) weekly. [place] semaglutide 2021-09- No [id number] Inject [facility] (OZEMPIC) 0 02-07 0.25 mg ity of 0.25 mg or 00:00: 00:00 under the [place] 0.5 mg(2 00 :00 skin Medical mg/1.5 mL) weekly. [place] semaglutide 2021-09- No [id number] Inject [facility] (OZEMPIC) 0 02-07 0.25 mg ity of 0.25 mg or 00:00: 00:00 under the [place] 0.5 mg(2 00 :00 skin Medical mg/1.5 mL) weekly. [facility] semaglutide 2021-09- No [id number] Inject [facility] (OZEMPIC) 011-02 0.25 mg ity of 0.25 mg or 00:00: 00:00 under the [place] 0.5 mg(2 00 :00 skin Medical mg/1.5 mL) weekly. [facility] semaglutide 2021-09- No [id number] Inject [facility] (OZEMPIC) 011-02 0.25 mg ity of 0.25 mg or 00:00: 00:00 under the [place] 0.5 mg(2 00 :00 skin Medical mg/1.5 mL) weekly. [facility] busPIRone 2021-09- No [id number] 20mg Take 2 U nivers 10 mg 10-12 tablets by ity of tablet 00:00: 00:00 mouth in [place] 00 :00 the Medical morning Branch and 2 tablets in the evening. diltiazem 2021-09- No [id number] 120mg Take 1 [facility] 120 mg 24 07-27 capsule by ity of hr capsule 00:00: 00:00 mouth in [facility] 00 :00 the Medical morning Branch and 1 capsule in the evening. levothyroxi 2021-09- No [id number] 50ug Take 1 [facility] ne 50 mcg 07-27 tablet by ity of tablet 00:00: 00:00 mouth [place] 00 :00 every Medical morning. Branch metformin 2021-09- No [id number] 500mg Take 1 [facility] ER 500 mg 07-27 tablet by ity of 24 hr 00:00: 00:00 mouth [place] tablet 00 :00 daily with Medical breakfast. Branch STOP REGULAR METFORMIN. pantoprazol 2021-09- No [id number] 40mg Take 1 [facility] e 40 mg EC 07-27 tablet by ity of tablet 00:00: 00:00 mouth in [place] 00 :00 the Medical morning. [place] pregabalin 2021-09- No [id number] 150mg Take 1 [facility] 150 mg 07-27 capsule by ity of capsule 00:00: 00:00 mouth in [place] 00 :00 the Medical morning Branch and 1 capsule at noon and 1 capsule in the evening. rosuvastati 2021-09- No [id number] 10mg Take 1 [facility] n 10 mg 07-27 tablet by ity of tablet 00:00: 00:00 mouth at [place] 00 :00 bedtime. Medical Branch SUMAtriptan 2021-09- No [id number] 50mg Take 1 [facility] 50 mg 07-27 tablet by ity of tablet 00:00: 00:00 mouth as [place] 00 :00 needed for Medical Migraine. Branch diltiazem 2021-09- No [id number] 120mg Take 1 [facility] 120 mg 24 07-27 capsule by ity of hr capsule 00:00: 00:00 mouth in [place] 00 :00 the Medical morning Branch and 1 capsule in the evening. levothyroxi 2021-09- No [id number] 50ug Take 1 [facility] ne 50 mcg 07-27 tablet by ity of tablet 00:00: 00:00 mouth [place] 00 :00 every Medical morning. Branch metformin 2021-09- No [id number] 500mg Take 1 [facility] ER 500 mg 07-27 tablet by ity of 24 hr 00:00: 00:00 mouth [place] tablet 00 :00 daily with Medical breakfast. Branch STOP REGULAR METFORMIN. pantoprazol 2021-09- No [id number] 40mg Take 1 [facility] e 40 mg EC 07-27 tablet by ity of tablet 00:00: 00:00 mouth in [place] 00 :00 the Medical morning. Branch pregabalin 2021-09- No [id number] 150mg Take 1 [facility] 150 mg 07-27 capsule by ity of capsule 00:00: 00:00 mouth in [place] 00 :00 the Medical morning Branch and 1 capsule at noon and 1 capsule in the evening. rosuvastati 2021-09- No [id number] 10mg Take 1 [facility] n 10 mg 07-27 tablet by ity of tablet 00:00: 00:00 mouth at [place] 00 :00 bedtime. Medical Branch SUMAtriptan 2021-09- No [id number] 50mg Take 1 [facility] 50 mg 0-13 11-01 tablet by ity of tablet 00:00: 00:00 mouth as [place] 00 :00 needed for Medical Migraine. Branch SUMAtriptan 2021-0 Yes [id number] 50mg Take 1 [facility] 50 mg 9-30 tablet by ity of tablet 00:00: mouth as [place] 00 needed for Medical Migraine. Branch SUMAtriptan 2021-0 Yes [id number] 50mg Take 1 [facility] 50 mg 9-30 tablet by ity of tablet 00:00: mouth as [place] 00 needed for Medical Migraine. Branch SUMAtriptan 2021-0 Yes [id number] 50mg Take 1 [facility] 50 mg 9-30 tablet by ity of tablet 00:00: mouth as [place] 00 needed for Medical Migraine. Branch SUMAtriptan 2021-0 Yes [id number] 50mg Take 1 [facility] 50 mg 9-30 tablet by ity of tablet 00:00: mouth as [place] 00 needed for Medical Migraine. Branch SUMAtriptan 0 Yes [id number] 50mg Take 1 [facility] 50 mg 9-30 tablet by ity of tablet 00:00: mouth as [place] 00 needed for Medical Migraine. Branch SUMAtriptan 2021- No [id number] 50mg Take 1 [facility] 50 mg 9-30 10-13 tablet by ity of tablet 00:00: 00:00 mouth as [place] 00 :00 needed for Medical Migraine. Branch FOLIC ACID Yes Take by Univ ers ORAL 06-17 mouth ity of 10:41: daily. [place] 15 Medical Branch MULTIVIT Yes Take by [facility] s &MINERALS/F 06-17 mouth. ity of ERROUS FUM 10:41: [place] (MULTI 15 Medical VITAMIN Branch ORAL) METHYLCELLU Yes [facility] s LOSE (FIBER 06-17 ity of THERAPY 10:41: [place] MISC) 15 Medical Branch DOCUSATE Yes Take by [facility] s SODIUM 06-17 mouth. ity of (COLACE [...] - mouth ity of EXTRACT 10:41: daily. [place] (CRANBERRY 15 Medical ORAL) Branch CALCIUM Yes Take by [facility] ORAL - mouth ity of 10:41: daily. [place] 15 Medical Branch DOCOSAHEXAN Yes 1000mg Take 1,000 [facility] OIC 9-22 mg by ity of ACID/EPA 10:41: mouth [place] (FISH OIL 15 daily. Medical ORAL) Branch BIOTIN ORAL Yes Take by Uni vers 06-17 mouth. ity of 10:41: [place] [address] Medical Branch FOLIC ACID Yes Take by Univ ers ORAL 06-17 mouth ity of 10:41: daily. [place] [address] Medical Branch MULTIVIT Yes Take by Univer s &MINERALS/F 06-17 mouth. ity of ERROUS FUM 10:41: [place] (MULTI 15 Medical VITAMIN Branch ORAL) METHYLCELLU Yes Univer s LOSE (FIBER 06-17 ity of THERAPY 10:41: [place] MISC) 15 Medical Branch DOCUSATE Yes Take [...] - mouth ity of EXTRACT 10:41: daily. [place] (CRANBERRY 15 Medical ORAL) Branch CALCIUM Yes Take by [facility] ORAL - mouth ity of 10:41: daily. [place] [address] Medical Branch DOCOSAHEXAN Yes 1000mg Take 1,000 [facility] OIC 9-22 mg by ity of ACID/EPA 10:41: mouth [place] (FISH OIL 15 daily. Medical ORAL) Branch BIOTIN ORAL Yes Take by [facility] vers 9-22 mouth. ity of 10:41: [place] 15 Medical Branch FOLIC ACID 0 Yes Take by Univ ers ORAL - mouth ity of 10:41: daily. [place] 15 Medical Branch MULTIVIT 0 Yes Take by Univer s &MINERALS/F - mouth. ity of ERROUS FUM 10:41: [place] (MULTI 15 Medical VITAMIN Branch ORAL) METHYLCELLU 0 Yes Univer s LOSE (FIBER -22 ity of THERAPY 10:41: [place] MISC) 15 Medical Branch DOCUSATE 0 Yes Take [...] - mouth ity of EXTRACT 10:41: daily. [place] (CRANBERRY 15 Medical ORAL) Branch CALCIUM Yes Take by [facility] ORAL - mouth ity of 10:41: daily. [place] 15 Medical Branch DOCOSAHEXAN Yes 1000mg Take 1,000 [facility] OIC 9-22 mg by ity of ACID/EPA 10:41: mouth [place] (FISH OIL 15 daily. Medical ORAL) Branch BIOTIN ORAL Yes Take by Uni vers -22 mouth. ity of 10:41: [place] 15 Medical Branch FOLIC ACID Yes Take by Univ ers ORAL 9- mouth ity of 10:41: daily. [place] 15 Medical Branch MULTIVIT 0 Yes Take by Univer s &MINERALS/F - mouth. ity of ERROUS FUM 10:41: [place] (MULTI 15 Medical VITAMIN Branch ORAL) METHYLCELLU [...] Branch unit) tablet CRANBERRY Yes Take by [employer] FRUIT - mouth ity of EXTRACT 10:41: daily. [place] (CRANBERRY 15 Medical ORAL) Branch CALCIUM Yes Take by [facility] ORAL - mouth ity of 10:41: daily. [place] 15 Medical Branch DOCOSAHEXAN Yes 1000mg Take 1,000 [facility] OIC 9-22 mg by ity of ACID/EPA 10:41: mouth [place] (FISH OIL 15 daily. Medical ORAL) Branch BIOTIN ORAL Yes Take by Uni vers 06-17 mouth. ity of 10:41: [place] 15 Medical Branch FOLIC ACID Yes Take by Univ ers ORAL - mouth ity of 10:41: daily. [place] 15 Medical Branch MULTIVIT Yes Take by [employer] s &MINERALS/F - mouth. ity of ERROUS FUM 10:41: [place] (MULTI 15 Medical VITAMIN Branch ORAL) METHYLCELLU Yes Univer s LOSE (FIBER 06-17 ity of THERAPY 10:41: [place] MISC) 15 Medical Branch DOCUSATE Yes Take by [employer] SODIUM - mouth. ity of (COLACE [...] Branch unit) tablet CRANBERRY Yes Take by [employer] FRUIT 9-22 mouth ity of EXTRACT 10:41: daily. [place] (CRANBERRY 15 Medical ORAL) Branch CALCIUM Yes Take by Univers ORAL 9-22 mouth ity of 10:41: daily. [place] 15 Medical Branch DOCOSAHEXAN Yes 1000mg Take 1,000 [facility] OIC 9-22 mg by ity of ACID/EPA 10:41: mouth [place] (FISH OIL 15 daily. Medical ORAL) Branch BIOTIN ORAL Yes Take by Uni vers - mouth. ity of 10:41: [place] [address] Medical Branch FOLIC ACID Yes Take by Univ ers ORAL - mouth ity of 10:41: daily. [place] [address] Medical Branch MULTIVIT Yes Take by Univer s &MINERALS/F - mouth. ity of ERROUS FUM 10:41: [place] (MULTI 15 Medical VITAMIN Branch ORAL) METHYLCELLU Yes Univer s LOSE (FIBER 06-17 ity of THERAPY 10:41: [place] MISC) Medical Branch DOCUSATE Yes Take by [...] 06-17 mouth ity of EXTRACT 10:41: daily. [place] (CRANBERRY 15 Medical ORAL) Branch CALCIUM Yes Take by [facility] ORAL -22 mouth ity of 10:41: daily. [place] [address] Medical Branch DOCOSAHEXAN Yes 1000mg Take 1,000 [facility] OIC 9-22 mg by ity of ACID/EPA 10:41: mouth [place] (FISH OIL 15 daily. Medical ORAL) Branch BIOTIN ORAL Yes Take by Uni vers -22 mouth. ity of 10:41: [place] [address] Medical Branch FOLIC ACID Yes Take by Univ ers ORAL - mouth ity of 10:41: daily. [place] 15 Medical Branch MULTIVIT Yes Take by Unive rs &MINERALS/F -22 mouth. ity of ERROUS FUM 10:41: [place] (MULTI 15 Medical VITAMIN Branch ORAL) METHYLCELLU 0 Yes Univer s LOSE (FIBER 9-22 ity of THERAPY 10:41: [facility]) 15 Medical Branch DOCUSATE 0 Yes [...] tablet CRANBERRY Yes Take by [facility] [place] FRUIT - mouth ity of EXTRACT 10:41: daily. [place] (CRANBERRY 15 Medical ORAL) Branch CALCIUM Yes Take by [facility] ORAL 9-22 mouth ity of 10:41: daily. [place] 15 Medical Branch DOCOSAHEXAN Yes 1000mg Take 1,000 [facility] OIC 9-22 mg by ity of ACID/EPA 10:41: mouth [place] (FISH OIL 15 daily. Medical ORAL) Branch BIOTIN ORAL Yes Take by Uni vers - mouth. ity of 10:41: [place] [address] Medical Branch FOLIC ACID Yes Take by Univ ers ORAL - mouth ity of 10:41: daily. [place] 15 Medical Branch MULTIVIT Yes Take by Univer s &MINERALS/F 9-22 mouth. ity of ERROUS FUM 10:41: [place] (MULTI 15 Medical VITAMIN Branch ORAL) METHYLCELLU 0 Yes Univer s LOSE (FIBER 9-22 ity of THERAPY 10:41: [facility]) Medical Branch DOCUSATE 0 Yes Take [...] 06-17 mouth ity of EXTRACT 10:41: daily. [place] (CRANBERRY 15 Medical ORAL) Branch CALCIUM Yes Take by Univers ORAL - mouth ity of 10:41: daily. [place] Medical Branch DOCOSAHEXAN Yes 1000mg Take 1,000 [facility] OIC 9-22 mg by ity of ACID/EPA 10:41: mouth [place] (FISH OIL 15 daily. Medical ORAL) Branch BIOTIN ORAL Yes Take by Uni vers 06-17 mouth. ity of 10:41: [place] [address] Medical Branch FOLIC ACID Yes Take by Univ ers ORAL 06-17 mouth ity of 10:41: daily. [place] [address] Medical Branch MULTIVIT Yes Take by Univer s &MINERALS/F - mouth. ity of ERROUS FUM 10:41: [place] (MULTI 15 Medical VITAMIN Branch ORAL) METHYLCELLU Yes Univer s LOSE (FIBER 06-17 ity of THERAPY 10:41: [place] MISC) Medical Branch DOCUSATE Yes Take by [...] - mouth ity of EXTRACT 10:41: daily. [place] (CRANBERRY 15 Medical ORAL) Branch CALCIUM Yes Take by [facility] ORAL - mouth ity of 10:41: daily. [place] Medical Branch DOCOSAHEXAN Yes 1000mg Take 1,000 [facility] OIC 9-22 mg by ity of ACID/EPA 10:41: mouth [place] (FISH OIL 15 daily. Medical ORAL) Branch BIOTIN ORAL Yes Take by Uni vers 9-22 mouth. ity of 10:41: [place] 15 Medical Branch FOLIC ACID 0 Yes Take by Univ ers ORAL 9- mouth ity of 10:41: daily. [place] 15 Medical Branch MULTIVIT Yes Take by Univer s &MINERALS/F - mouth. ity of ERROUS FUM 10:41: [place] (MULTI 15 Medical VITAMIN Branch ORAL) METHYLCELLU Yes Univer s LOSE (FIBER - ity of THERAPY 10:41: [place] MISC) 15 Medical Branch DOCUSATE Yes Take [...] - mouth ity of EXTRACT 10:41: daily. [place] (CRANBERRY 15 Medical ORAL) Branch CALCIUM Yes Take by [facility] ORAL 9-22 mouth ity of 10:41: daily. [place] 15 Medical Branch DOCOSAHEXAN Yes 1000mg Take 1,000 [facility] OIC 9-22 mg by ity of ACID/EPA 10:41: mouth [place] (FISH OIL 15 daily. Medical ORAL) Branch BIOTIN ORAL Yes Take by Uni vers 9-22 mouth. ity of 10:41: [place] 15 Medical Branch FOLIC ACID Yes Take by Univ ers ORAL 9-22 mouth ity of 10:41: daily. [place] 15 Medical Branch MULTIVIT Yes Take by Univer s &MINERALS/F - mouth. ity of ERROUS FUM 10:41: [place] (MULTI 15 Medical VITAMIN Branch ORAL) METHYLCELLU Yes Univer s LOSE (FIBER 9-22 ity of THERAPY 10:41: [facility]) 15 Medical [facility] [place] mouth. ity of (COLACE 10:41: [place] ORAL) 15 Medical Branch vitamin C Yes 1000mg Take 1,000 [facility] with derrell 9-22 mg by ity of hips 1,000 10:41: mouth [place] mg tablet 15 daily. Medical Branch cholecalcif Yes 1000U Take 1,000 [facility] edmar, 9-22 Units by ity of vitamin D3, 10:41: mouth [place] 25 mcg 15 daily. Medical (1,000 Branch unit) tablet CRANBERRY Yes Take by [facility] rs FRUIT 06-17 mouth ity of EXTRACT 10:41: daily. [place] (CRANBERRY 15 Medical ORAL) Branch CALCIUM Yes Take by [facility] ORAL 06-17 mouth ity of 10:41: daily. [place] 15 Medical Branch DOCOSAHEXAN Yes 1000mg Take 1,000 [facility] OIC 9-22 mg by ity of ACID/EPA 10:41: mouth [place] (FISH OIL 15 daily. Medical ORAL) Branch BIOTIN ORAL Yes Take by Uni vers 06-17 mouth. ity of 10:41: [place] [address] Medical Branch FOLIC ACID Yes Take by [facility] ers ORAL 06-17 mouth ity of 10:41: daily. [place] [address] Medical Branch MULTIVIT [facility] [place] &MINERALS/F 06-17 mouth. ity of ERROUS FUM 10:41: [place] (MULTI 15 Medical VITAMIN Branch ORAL) M[facility]YLCELLU Yes [facility] [place] (FIBER 06-17 ity of THERAPY 10:41: [facility]) 15 Medical Branch DOCUSATE Yes [facility] [place] SODIUM - mouth. ity of (COLACE 10:41: [place] ORAL) 15 Medical Branch vitamin C Yes [...] - mouth ity of EXTRACT 10:41: daily. [place] (CRANBERRY 15 Medical ORAL) Branch CALCIUM Yes Take by [facility] ORAL - mouth ity of 10:41: daily. [place] [address] Medical Branch DOCOSAHEXAN Yes 1000mg Take 1,000 [facility] OIC 9-22 mg by ity of ACID/EPA 10:41: mouth [place] (FISH OIL 15 daily. Medical ORAL) Branch BIOTIN ORAL Yes Take by Uni vers 06-17 mouth. ity of 10:41: [place] [address] Medical Branch FOLIC ACID Yes Take by Univ ers ORAL 06-17 mouth ity of 10:41: daily. [place] [address] Medical Branch MULTIVIT Yes Take by Univer s &MINERALS/F 06-17 mouth. ity of ERROUS FUM 10:41: [place] (MULTI 15 Medical VITAMIN Branch ORAL) METHYLCELLU Yes Univer s LOSE (FIBER 06-17 ity of THERAPY 10:41: [place] MISC) Medical Branch DOCUSATE Yes Take by [...] - mouth ity of EXTRACT 10:41: daily. [place] (CRANBERRY 15 Medical ORAL) Branch CALCIUM Yes Take by [facility] ORAL - mouth ity of 10:41: daily. [place] [address] Medical Branch DOCOSAHEXAN Yes 1000mg Take 1,000 [facility] OIC 9-22 mg by ity of ACID/EPA 10:41: mouth [place] (FISH OIL 15 daily. Medical ORAL) Branch BIOTIN ORAL Yes Take by Uni vers - mouth. ity of 10:41: [place] [address] Medical Branch FOLIC ACID Yes Take by [facility] ers ORAL - mouth ity of 10:41: daily. [place] 15 Medical Branch MULTIVIT Yes Take by [facility] s &MINERALS/F - mouth. ity of ERROUS FUM 10:41: [place] (MULTI 15 Medical VITAMIN Branch ORAL) METHYLCELLU Yes Univer s LOSE (FIBER 9-22 ity of THERAPY 10:41: [facility]) 15 Medical Branch [facility]ATE [facility] [place] SOD[facility] - mouth. ity of (COLACE [...] CRANBERRY Yes Take by [facility] rs FRUIT - mouth ity of EXTRACT 10:41: daily. [place] (CRANBERRY 15 Medical ORAL) Branch CALCIUM Yes Take by [facility] ORAL - mouth ity of 10:41: daily. [place] 15 Medical Branch DOCOSAHEXAN Yes 1000mg Take 1,000 [facility] OIC 9-22 mg by ity of ACID/EPA 10:41: mouth [place] (FISH OIL 15 daily. Medical ORAL) Branch BIOTIN ORAL Yes Take by Uni vers - mouth. ity of 10:41: [place] 15 Medical Branch FOLIC ACID Yes Take by Univ ers ORAL 9-22 mouth ity of 10:41: daily. [place] 15 Medical Branch MULTIVIT Yes Take by [facility] s &MINERALS/F - mouth. ity of ERROUS FUM 10:41: [place] (MULTI 15 Medical VITAMIN Branch ORAL) METHYLCELLU 0 Yes Univer s LOSE (FIBER 9-22 ity of THERAPY 10:41: [facility]) 15 Medical Branch vitamin C Yes [...] 06-17 mouth ity of EXTRACT 10:41: daily. [place] (CRANBERRY 15 Medical ORAL) Branch CALCIUM Yes Take by [facility] ORAL 9- mouth ity of 10:41: daily. [place] Medical Branch DOCOSAHEXAN Yes 1000mg Take 1,000 [facility] OIC 9-22 mg by ity of ACID/EPA 10:41: mouth [place] (FISH OIL 15 daily. Medical ORAL) Branch BIOTIN ORAL Yes Take by Uni vers 06-17 mouth. ity of 10:41: [place] [address] Medical Branch FOLIC ACID Yes Take by Univ ers ORAL 06-17 mouth ity of 10:41: daily. [place] [address] Medical Branch MULTIVIT Yes Take by Univer s &MINERALS/F 06-17 mouth. ity of ERROUS FUM 10:41: [place] (MULTI 15 Medical VITAMIN Branch ORAL) METHYLCELLU Yes Univer s LOSE (FIBER 06-17 ity of THERAPY 10:41: [facility]) Medical Branch vitamin C Yes 1000mg [...] - mouth ity of EXTRACT 10:41: daily. [place] (CRANBERRY 15 Medical ORAL) Branch CALCIUM Yes Take by [facility] s ORAL - mouth ity of 10:41: daily. [place] 15 Medical Branch DOCOSAHEXAN Yes 1000mg Take 1,000 [facility] OIC 9-22 mg by ity of ACID/EPA 10:41: mouth [place] (FISH OIL 15 daily. Medical ORAL) Branch BIOTIN ORAL Yes Take by Uni vers 06-17 mouth. ity of 10:41: [place] [address] Medical Branch FOLIC ACID 0 Yes Take by Univ ers ORAL - mouth ity of 10:41: daily. [place] 15 Medical Branch MULTIVIT 0 Yes Take by Univer s &MINERALS/F 06-17 mouth. ity of ERROUS FUM 10:41: [place] (MULTI 15 Medical VITAMIN Branch ORAL) METHYLCELLU 0 Yes Univer s LOSE (FIBER 06-17 ity of THERAPY 10:41: [facility]) 15 Medical Branch vitamin C 0 Yes 1000mg Take 1,000 [facility] with derrell 9-22 mg by ity of hips 1,000 10:41: mouth [place] mg tablet 15 daily. Medical Branch cholecalcif 0 Yes 1000U Take 1,000 [facility] edmar, 9-22 Units by ity of vitamin D3, 10:41: mouth [place] 25 mcg 15 daily. Medical (1,000 Branch unit) tablet CRANBERRY [facility] [place] FRUIT 06-17 mouth ity of EXTRACT 10:41: daily. [place] (CRANBERRY 15 Medical ORAL) Branch CALCIUM 0 Yes Take by [facility] ORAL 06-17 mouth ity of 10:41: daily. [place] 15 Medical Branch DOCOSAHEXAN Yes 1000mg Take 1,000 [facility] OIC 9-22 mg by ity of ACID/EPA 10:41: mouth [place] (FISH OIL 15 daily. Medical ORAL) Branch BIOTIN ORAL Yes Take by Uni vers - mouth. ity of 10:41: [place] [address] Medical Branch FOLIC ACID 0 Yes Take by Univ ers ORAL - mouth ity of 10:41: daily. [place] 15 Medical Branch MULTIVIT 0 Yes Take by Univer s &MINERALS/F 06-17 mouth. ity of ERROUS FUM 10:41: [place] (MULTI 15 Medical VITAMIN Branch ORAL) METHYLCELLU 2021-0 Yes Univer s LOSE (FIBER - ity of THERAPY 10:41: [facility]) 15 Medical Branch vitamin C 0 [...] 06-17 mouth ity of EXTRACT 10:41: daily. [place] (CRANBERRY 15 Medical ORAL) Branch CALCIUM Yes Take by [facility] ORAL - mouth ity of 10:41: daily. [place] 15 Medical Branch DOCOSAHEXAN Yes 1000mg Take 1,000 [facility] OIC 9-22 mg by ity of ACID/EPA 10:41: mouth [place] (FISH OIL 15 daily. Medical ORAL) Branch BIOTIN ORAL Yes Take by Uni vers 06-17 mouth. ity of 10:41: [place] [address] Medical Branch FOLIC ACID Yes Take by Univ ers ORAL 06-17 mouth ity of 10:41: daily. [place] [address] Medical Branch MULTIVIT [facility] [place] &MIN[facility]ALS/F 06-17 mouth. ity of ERROUS FUM 10:41: [place] (MULTI 15 Medical VITAMIN Branch ORAL) METHYLCELLU Yes Univer s LOSE (FIBER 06-17 ity of THERAPY 10:41: [place] MIS) Medical Branch vitamin C Yes 1000mg [...] - mouth ity of EXTRACT 10:41: daily. [place] (CRANBERRY 15 Medical ORAL) Branch CALCIUM Yes Take by [facility] ORAL 06-17 mouth ity of 10:41: daily. [place] 15 Medical Branch DOCOSAHEXAN Yes 1000mg Take 1,000 [facility] OIC 9-22 mg by ity of ACID/EPA 10:41: mouth [place] (FISH OIL 15 daily. Medical ORAL) Branch BIOTIN ORAL Yes Take by [facility] vers 06-17 mouth. ity of 10:41: [place] [address] Medical Branch FOLIC ACID 2022-0 Yes Take by Univ ers ORAL 06-17 mouth ity of 10:41: daily. [place] 15 Medical Branch MULTIVIT Yes Take by Univer s &MINERALS/F - mouth. ity of ERROUS FUM 10:41: [place] (MULTI 15 Medical VITAMIN Branch ORAL) METHYLCELLU 0 Yes Univer s LOSE (FIBER 9-22 ity of THERAPY 10:41: [facility]) 15 Medical Branch vitamin C 0 [...] CRANBERRY Yes Take by [facility] rs FRUIT 06-17 mouth ity of EXTRACT 10:41: daily. [place] (CRANBERRY 15 Medical ORAL) Branch CALCIUM Yes Take by [facility] ORAL 06-17 mouth ity of 10:41: daily. [place] 15 Medical Branch DOCOSAHEXAN Yes 1000mg Take 1,000 [facility] OIC 9-22 mg by ity of ACID/EPA 10:41: mouth [place] (FISH OIL 15 daily. Medical ORAL) Branch BIOTIN ORAL Yes Take by Uni vers - mouth. ity of 10:41: [place] [address] Medical Branch FOLIC ACID 0 Yes Take by [facility] [place] ers ORAL - mouth ity of 10:41: daily. [place] 15 Medical Branch MULTIVIT Yes Take by Univer s &MINERALS/F - mouth. ity of ERROUS FUM 10:41: [place] (MULTI 15 Medical VITAMIN Branch ORAL) METHYLCELLU 0 Yes Univer s LOSE (FIBER 9-22 ity of THERAPY 10:41: [place] [facility] [facility] Branch vitamin C 0 Yes 1000mg [...] 06-17 mouth ity of EXTRACT 10:41: daily. [place] (CRANBERRY 15 Medical ORAL) Branch CALCIUM Yes Take by [facility] ORAL - mouth ity of 10:41: daily. [place] [address] Medical Branch DOCOSAHEXAN Yes 1000mg Take 1,000 [facility] OIC 9-22 mg by ity of ACID/EPA 10:41: mouth [place] (FISH OIL 15 daily. Medical ORAL) Branch BIOTIN ORAL Yes Take by Uni vers 06-17 mouth. ity of 10:41: [place] [address] Medical Branch FOLIC ACID Yes Take by Univ ers ORAL - mouth ity of 10:41: daily. [place] [address] Medical Branch MULTIVIT Yes Take by Univer s &MINERALS/F 06-17 mouth. ity of ERROUS FUM 10:41: [place] (MULTI 15 Medical VITAMIN Branch ORAL) M[facility]YLCELLU [facility] [place]-17 ity of THERAPY 10:41: [facility]) Medical Branch vitamin C Yes 1000mg Take 1,000 [facility] with derrell 9-22 mg by ity of hips 1,000 10:41: mouth [place] mg tablet 15 daily. Medical Branch cholecalcif Yes 1000U Take 1,000 [facility] edmar, 9-22 Units by ity of vitamin D3, 10:41: mouth [place] 25 mcg 15 daily. Medical (1,000 Branch unit) tablet CRANBERRY [place] [facility] [place] [facility] FRUIT - mouth ity of EXTRACT 10:41: daily. [place] (CRANBERRY 15 Medical ORAL) Branch CALCIUM Yes Take by [facility] ORAL - mouth ity of 10:41: daily. [place] [address] Medical Branch DOCOSAHEXAN Yes 1000mg Take 1,000 [facility] OIC 9-22 mg by ity of ACID/EPA 10:41: mouth [place] (FISH OIL 15 daily. Medical ORAL) Branch BIOTIN ORAL Yes Take by Uni vers 06-17 mouth. ity of 10:41: [place] [address] Medical Branch FOLIC ACID Yes Take by Univ ers ORAL - mouth ity of 10:41: daily. [place] [address] Medical Branch MULTIVIT Yes Take by Univer s &MINERALS/F - mouth. ity of ERROUS FUM 10:41: [place] (MULTI 15 Medical VITAMIN Branch ORAL) METHYLCELLU 0 Yes Univer s LOSE (FIBER - ity of THERAPY 10:41: [facility]) 15 Medical Branch vitamin C Yes [...] - mouth ity of EXTRACT 10:41: daily. [place] (CRANBERRY 15 Medical ORAL) Branch CALCIUM Yes Take by [facility] ORAL - mouth ity of 10:41: daily. [place] 15 Medical Branch DOCOSAHEXAN Yes 1000mg Take 1,000 [facility] OIC 9-22 mg by ity of ACID/EPA 10:41: mouth [place] (FISH OIL 15 daily. Medical ORAL) Branch BIOTIN ORAL Yes Take by Uni vers - mouth. ity of 10:41: [place] [address] Medical Branch FOLIC ACID Yes Take by Univ ers ORAL - mouth ity of 10:41: daily. [place] [address] Medical Branch MULTIVIT Yes Take by Univer s &MINERALS/F - mouth. ity of ERROUS FUM 10:41: [place] (MULTI 15 Medical VITAMIN Branch ORAL) METHYLCELLU 0 Yes Univer s LOSE (FIBER 9-22 ity of THERAPY 10:41: [facility]) Medical Branch vitamin C Yes 1000mg [...] 06-17 mouth ity of EXTRACT 10:41: daily. [place] (CRANBERRY 15 Medical ORAL) Branch CALCIUM Yes Take by [facility] ORAL - mouth ity of 10:41: daily. [place] [address] Medical Branch DOCOSAHEXAN Yes 1000mg Take 1,000 [facility] OIC 9-22 mg by ity of ACID/EPA 10:41: mouth [place] (FISH OIL 15 daily. Medical ORAL) Branch BIOTIN ORAL Yes Take by Uni vers 06-17 mouth. ity of 10:41: [place] [address] Medical Branch FOLIC ACID Yes Take by Univ ers ORAL 06-17 mouth ity of 10:41: daily. [place] [address] Medical Branch MULTIVIT Yes Take by Univer s &MINERALS/F 06-17 mouth. ity of ERROUS FUM 10:41: [place] (MULTI 15 Medical VITAMIN Branch ORAL) METHYLCELLU Yes Univer s LOSE (FIBER 06-17 ity of THERAPY 10:41: [facility]) Medical Branch vitamin C Yes 1000mg [...] 06-17 mouth ity of EXTRACT 10:41: daily. [place] (CRANBERRY 15 Medical ORAL) Branch CALCIUM Yes Take by [facility] ORAL 06-17 mouth ity of 10:41: daily. [place] [address] Medical Branch DOCOSAHEXAN Yes 1000mg Take 1,000 [facility] OIC 9-22 mg by ity of ACID/EPA 10:41: mouth [place] (FISH OIL 15 daily. Medical ORAL) Branch BIOTIN ORAL Yes Take by Uni vers 06-17 mouth. ity of 10:41: [place] [address] Medical Branch FOLIC ACID Yes Take by Univ ers ORAL - mouth ity of 10:41: daily. [place] [address] Medical Branch MULTIVIT Yes Take by Univer s &MINERALS/F 06-17 mouth. ity of ERROUS FUM 10:41: [place] (MULTI 15 Medical VITAMIN Branch ORAL) METHYLCELLU 2021-0 Yes Univer s LOSE (FIBER 9-22 ity of THERAPY 10:41: [facility]) 15 Medical Branch vitamin C 2021-0 [...] - mouth ity of EXTRACT 10:41: daily. [place] (CRANBERRY 15 Medical ORAL) Branch CALCIUM 0 Yes Take by [facility] ORAL - mouth ity of 10:41: daily. [place] 15 Medical Branch DOCOSAHEXAN Yes 1000mg Take 1,000 [facility] OIC 9-22 mg by ity of ACID/EPA 10:41: mouth [place] (FISH OIL 15 daily. Medical ORAL) Branch BIOTIN ORAL 0 Yes Take by Uni vers - mouth. ity of 10:41: [place] [address] Medical Branch FOLIC ACID 0 Yes Take by Univ ers ORAL - mouth ity of 10:41: daily. [place] [address] Medical Branch MULTIVIT 0 Yes Take by Univer s &MINERALS/F 9- mouth. ity of ERROUS FUM 10:41: [place] (MULTI 15 Medical VITAMIN Branch ORAL) METHYLCELLU 2021-0 Yes Univer s LOSE (FIBER 9-22 ity of THERAPY 10:41: [facility]) Medical Branch vitamin C 2021-0 Yes 1000mg Take 1,000 [facility] with derrell 9-22 mg by ity of hips 1,000 10:41: mouth [place] mg tablet 15 daily. Medical Branch cholecalcif 2021-0 Yes 1000U Take 1,000 [facility] edmar, 9-22 Units by ity of vitamin D3, 10:41: mouth [place] 25 mcg 15 daily. Medical (1,000 Branch unit) tablet CRANBERRY 2021-0 Yes Take by Unive rs FRUIT -22 mouth ity of EXTRACT 10:41: daily. [place] (CRANBERRY 15 Medical ORAL) Branch CALCIUM 2022-0 Yes Take by [facility] ORAL 9-22 mouth ity of 10:41: daily. [place] 15 Medical Branch DOCOSAHEXAN Yes 1000mg Take 1,000 [facility] OIC 9-22 mg by ity of ACID/EPA 10:41: mouth [place] (FISH OIL 15 daily. Medical ORAL) Branch BIOTIN ORAL Yes Take by Uni vers -22 mouth. ity of 10:41: [place] [address] Medical Branch FOLIC ACID 0 Yes Take by Univ ers ORAL - mouth ity of 10:41: daily. [place] [address] Medical Branch MULTIVIT 0 Yes Take by Univer s &MINERALS/F - mouth. ity of ERROUS FUM 10:41: [place] (MULTI 15 Medical VITAMIN Branch ORAL) METHYLCELLU 0 Yes Univer s LOSE (FIBER - ity of THERAPY 10:41: [facility]) Medical Branch vitamin C Yes 1000mg [...] - mouth ity of EXTRACT 10:41: daily. [place] (CRANBERRY 15 Medical ORAL) Branch CALCIUM Yes Take by Univers ORAL 9-22 mouth ity of 10:41: daily. [place] [address] Medical Branch DOCOSAHEXAN Yes 1000mg Take 1,000 [facility] OIC 9-22 mg by ity of ACID/EPA 10:41: mouth [place] (FISH OIL 15 daily. Medical ORAL) Branch BIOTIN ORAL Yes Take by Uni vers 9-22 mouth. ity of 10:41: [place] [address] Medical Branch FOLIC ACID 0 Yes Take by Univ ers ORAL 9-22 mouth ity of 10:41: daily. [place] [address] Medical Branch MULTIVIT 0 Yes Take by Univer s &MINERALS/F - mouth. ity of ERROUS FUM 10:41: [place] (MULTI 15 Medical VITAMIN Branch ORAL) METHYLCELLU 2022-0 Yes Univer s LOSE (FIBER 9-22 ity of THERAPY 10:41: [facility]) 15 Medical Branch vitamin C Yes [...] 06-17 mouth ity of EXTRACT 10:41: daily. [place] (CRANBERRY 15 Medical ORAL) Branch CALCIUM Yes Take by [facility] ORAL - mouth ity of 10:41: daily. [place] [address] Medical Branch DOCOSAHEXAN Yes 1000mg Take 1,000 [facility] OIC 9-22 mg by ity of ACID/EPA 10:41: mouth [place] (FISH OIL 15 daily. Medical ORAL) Branch BIOTIN ORAL Yes Take by Uni vers 06-17 mouth. ity of 10:41: [place] [address] Medical Branch FOLIC ACID Yes Take by Univ ers ORAL - mouth ity of 10:41: daily. [place] [address] Medical Branch MULTIVIT Yes Take by Univer s &MINERALS/F 06-17 mouth. ity of ERROUS FUM 10:41: [place] (MULTI 15 Medical VITAMIN Branch ORAL) METHYLCELLU Yes Univer s LOSE (FIBER -22 ity of THERAPY 10:41: [facility]) 15 Medical Branch vitamin C Yes [...] - mouth ity of EXTRACT 10:41: daily. [place] (CRANBERRY 15 Medical ORAL) Branch CALCIUM Yes Take by Univers ORAL - mouth ity of 10:41: daily. [place] 15 Medical Branch DOCOSAHEXAN Yes 1000mg Take 1,000 [facility] OIC 9-22 mg by ity of ACID/EPA 10:41: mouth [place] (FISH OIL 15 daily. Medical ORAL) Branch BIOTIN ORAL 0 Yes Take by Uni vers 9-22 mouth. ity of 10:41: [place] 15 Medical Branch FOLIC ACID 0 Yes Take by Univ ers ORAL 9- mouth ity of 10:41: daily. [place] 15 Medical Branch MULTIVIT 0 Yes Take by Unive rs &MINERALS/F - mouth. ity of ERROUS FUM 10:41: [place] (MULTI 15 Medical VITAMIN Branch ORAL) METHYLCELLU 0 Yes Univer s LOSE (FIBER 06-17 ity of THERAPY 10:41: [facility]) Medical Branch vitamin C Yes 1000mg [...] - mouth ity of EXTRACT 10:41: daily. [place] (CRANBERRY 15 Medical ORAL) Branch CALCIUM Yes Take by Univers ORAL 9- mouth ity of 10:41: daily. [place] Medical Branch DOCOSAHEXAN Yes 1000mg Take 1,000 [facility] OIC 9-22 mg by ity of ACID/EPA 10:41: mouth [place] (FISH OIL 15 daily. Medical ORAL) Branch BIOTIN ORAL Yes Take by Uni vers 9-22 mouth. ity of 10:41: [place] 15 Medical Branch FOLIC ACID 0 Yes Take by Univ ers ORAL 9-22 mouth ity of 10:41: daily. [place] [address] Medical Branch MULTIVIT 0 Yes Take by Univer s &MINERALS/F -22 mouth. ity of ERROUS FUM 10:41: [place] (MULTI 15 Medical VITAMIN Branch ORAL) METHYLCELLU 0 Yes Univer s LOSE (FIBER - ity of THERAPY 10:41: [facility]) 15 Medical Branch vitamin C Yes [...] 06-17 mouth ity of EXTRACT 10:41: daily. [place] (CRANBERRY 15 Medical ORAL) Branch CALCIUM Yes Take by Univers ORAL 06-17 mouth ity of 10:41: daily. [place] [address] Medical Branch DOCOSAHEXAN Yes 1000mg Take 1,000 [facility] OIC 9-22 mg by ity of ACID/EPA 10:41: mouth [place] (FISH OIL 15 daily. Medical ORAL) Branch BIOTIN ORAL Yes Take by Uni vers 06-17 mouth. ity of 10:41: [place] [address] Medical Branch FOLIC ACID Yes Take by Univ ers ORAL 06-17 mouth ity of 10:41: daily. [place] [address] Medical Branch MULTIVIT Yes Take by Univer s &MINERALS/F 06-17 mouth. ity of ERROUS FUM 10:41: [place] (MULTI 15 Medical VITAMIN Branch ORAL) METHYLCELLU Yes Univer s LOSE (FIBER 06-17 ity of THERAPY 10:41: [facility]) 15 Medical Branch vitamin C Yes [...] - mouth ity of EXTRACT 10:41: daily. [place] (CRANBERRY 15 Medical ORAL) Branch CALCIUM Yes Take by Univers ORAL - mouth ity of 10:41: daily. [place] [address] Medical Branch DOCOSAHEXAN Yes 1000mg Take 1,000 [facility] OIC 9-22 mg by ity of ACID/EPA 10:41: mouth [place] (FISH OIL 15 daily. Medical ORAL) Branch BIOTIN ORAL Yes Take by Uni vers - mouth. ity of 10:41: [place] 15 Medical Branch FOLIC ACID 0 Yes Take by Univ ers ORAL - mouth ity of 10:41: daily. [place] 15 Medical Branch MULTIVIT 0 Yes Take by Univer s &MINERALS/F - mouth. ity of ERROUS FUM 10:41: [place] (MULTI 15 Medical VITAMIN Branch ORAL) METHYLCELLU 0 Yes Univer s LOSE (FIBER 9-22 ity of THERAPY 10:41: [facility]) 15 Medical Branch vitamin C Yes [...] 06-17 mouth ity of EXTRACT 10:41: daily. [place] (CRANBERRY 15 Medical ORAL) Branch CALCIUM Yes Take by Univers ORAL - mouth ity of 10:41: daily. [place] 15 Medical Branch DOCOSAHEXAN Yes 1000mg Take 1,000 [facility] OIC 9-22 mg by ity of ACID/EPA 10:41: mouth [place] (FISH OIL 15 daily. Medical ORAL) Branch BIOTIN ORAL Yes Take by Uni vers - mouth. ity of 10:41: [place] 15 Medical Branch FOLIC ACID 0 Yes Take by Univ ers ORAL - mouth ity of 10:41: daily. [place] 15 Medical Branch MULTIVIT 0 Yes Take by Univer s &MINERALS/F - mouth. ity of ERROUS FUM 10:41: [place] (MULTI 15 Medical VITAMIN Branch ORAL) METHYLCELLU 0 Yes Univer s LOSE (FIBER 9-22 ity of THERAPY 10:41: [facility]) Medical Branch vitamin C 0 Yes [...] 06-17 mouth ity of EXTRACT 10:41: daily. [place] (CRANBERRY 15 Medical ORAL) Branch CALCIUM Yes Take by Univers ORAL 06-17 mouth ity of 10:41: daily. [place] Medical Branch DOCOSAHEXAN Yes 1000mg Take 1,000 [facility] OIC 9-22 mg by ity of ACID/EPA 10:41: mouth [place] (FISH OIL 15 daily. Medical ORAL) Branch BIOTIN ORAL Yes Take by Uni vers 06-17 mouth. ity of 10:41: [place] [address] Medical Branch FOLIC ACID Yes Take by Univ ers ORAL 06-17 mouth ity of 10:41: daily. [place] [address] Medical Branch MULTIVIT Yes Take by Univer s &MINERALS/F 06-17 mouth. ity of ERROUS FUM 10:41: [place] (MULTI 15 Medical VITAMIN Branch ORAL) [facility]LLU [facility] [place] of [facility]Y 10:41: [place] [facility] [facility] Branch vitamin C Yes 1000mg Take [...] - mouth ity of EXTRACT 10:41: daily. [place] (CRANBERRY 15 Medical ORAL) Branch CALCIUM Yes Take by Univer s ORAL - mouth ity of 10:41: daily. [place] Medical Branch DOCOSAHEXAN Yes 1000mg Take 1,000 [facility] OIC 9-22 mg by ity of ACID/EPA 10:41: mouth [place] (FISH OIL 15 daily. Medical ORAL) Branch BIOTIN ORAL 0 Yes Take by Uni vers - mouth. ity of 10:41: [place] 15 Medical Branch FOLIC ACID 0 Yes Take by Univ ers ORAL - mouth ity of 10:41: daily. [place] 15 Medical Branch MULTIVIT 0 Yes Take by Univer s &MINERALS/F - mouth. ity of ERROUS FUM 10:41: [place] (MULTI 15 Medical VITAMIN Branch ORAL) METHYLCELLU 0 Yes Univer s LOSE (FIBER 9-22 ity of THERAPY 10:41: [facility]) 15 Medical Branch vitamin C 0 [...] 06-17 mouth ity of EXTRACT 10:41: daily. [place] (CRANBERRY 15 Medical ORAL) Branch CALCIUM Yes Take by Univers ORAL - mouth ity of 10:41: daily. [place] 15 Medical Branch DOCOSAHEXAN 0 Yes 1000mg Take 1,000 [facility] OIC 9-22 mg by ity of ACID/EPA 10:41: mouth [place] (FISH OIL 15 daily. Medical ORAL) Branch BIOTIN ORAL Yes Take by Uni vers - mouth. ity of 10:41: [place] 15 Medical Branch FOLIC ACID 0 Yes Take by Univ ers ORAL 9- mouth ity of 10:41: daily. [place] 15 Medical Branch MULTIVIT 0 Yes Take by Univer s &MINERALS/F - mouth. ity of ERROUS FUM 10:41: [place] (MULTI 15 Medical VITAMIN Branch ORAL) METHYLCELLU 2021-0 Yes Univer s LOSE (FIBER 9-22 ity of THERAPY 10:41: [facility]) 15 Medical Branch vitamin C 0 [...] 06-17 mouth ity of EXTRACT 10:41: daily. [place] (CRANBERRY 15 Medical ORAL) Branch CALCIUM Yes Take by [facility] ORAL 06-17 mouth ity of 10:41: daily. [place] 15 Medical Branch DOCOSAHEXAN Yes 1000mg Take 1,000 [facility] OIC 9-22 mg by ity of ACID/EPA 10:41: mouth [place] (FISH OIL 15 daily. Medical ORAL) Branch BIOTIN ORAL Yes Take by Uni vers 06-17 mouth. ity of 10:41: [place] [address] Medical Branch FOLIC ACID Yes Take by Univ ers ORAL 06-17 mouth ity of 10:41: daily. [place] [address] Medical Branch MULTIVIT Yes Take by Univer s &MINERALS/F 06-17 mouth. ity of ERROUS FUM 10:41: [place] (MULTI 15 Medical VITAMIN Branch ORAL) METHYLCELLU Yes Univer s LOSE (FIBER 06-17 ity of THERAPY 10:41: [facility]) Medical Branch vitamin C Yes 1000mg [...] - mouth ity of EXTRACT 10:41: daily. [place] (CRANBERRY 15 Medical ORAL) Branch CALCIUM Yes Take by Univers ORAL 06-17 mouth ity of 10:41: daily. [place] 15 Medical Branch DOCOSAHEXAN Yes 1000mg Take 1,000 [facility] OIC 9-22 mg by ity of ACID/EPA 10:41: mouth [place] (FISH OIL 15 daily. Medical ORAL) Branch BIOTIN ORAL Yes Take by [facility] vers 06-17 mouth. ity of 10:41: [place] [address] Medical Branch FOLIC ACID Yes Take by [facility] ers ORAL 06-17 mouth ity of 10:41: daily. [place] [address] Medical Branch [facility] [place]F 06-17 mouth. ity of ERROUS FUM 10:41: [place] (MULTI 15 Medical VITAMIN Branch ORAL) METHYLCELLU [...] tablet CRANBERRY Yes [facility] [place] FRUIT 06-17 mouth [facility] of EXTRACT 10:41: daily. [place] (CRANBERRY 15 Medical ORAL) Branch CALCIUM Yes Take by [facility] ORAL 06-17 mouth ity of 10:41: daily. [place] [address] Medical Branch DOCOSAHEXAN Yes 1000mg Take 1,000 [facility] OIC 9-22 mg by ity of ACID/EPA 10:41: mouth [place] (FISH OIL 15 daily. Medical ORAL) Branch BIOTIN ORAL Yes Take by [facility] vers 06-17 mouth. ity of 10:41: [place] [address] Medical Branch SUMAtriptan Yes [id number] 50mg Take 1 [facility] 50 mg 9-22 tablet by ity of tablet 00:00: mouth as [place] 00 needed for Medical Migraine. Branch topiramate Yes [id number] 75mg Take 3 [facility] 25 mg 9-22 tablets by ity of tablet 00:00: mouth in [place] 00 the Medical morning Branch and 3 tablets in the evening. SUMAtriptan 0 Yes [id number] 50mg Take 1 [facility] 50 mg 9-22 tablet by ity of tablet 00:00: mouth as [place] 00 needed for Medical Migraine. Branch topiramate Yes [id number] 75mg Take 3 [facility] 25 mg 9-22 tablets by ity of tablet 00:00: mouth in [place] 00 the Medical morning Branch and 3 tablets in the evening. SUMAtriptan 2022-0 Yes [id number] 50mg Take 1 [facility] 50 mg 9-22 tablet by ity of tablet 00:00: mouth as [place] [address] needed for Medical Migraine. Branch topiramate 2-0 Yes [id number] 75mg Take 3 [facility] 25 mg 9-22 tablets by ity of tablet 00:00: mouth in [place] 00 the Medical morning Branch and 3 tablets in the evening. SUMAtriptan 2-0 Yes [id number] 50mg Take 1 [facility] 50 mg 9-22 tablet by ity of tablet 00:00: mouth as [place] [address] needed for Medical Migraine. Branch topiramate 2-0 Yes [id number] 75mg Take 3 [facility] 25 mg 9-22 tablets by ity of tablet 00:00: mouth in [place] [address] the Medical morning Branch and 3 tablets in the evening. topiramate 2-0 Yes [id number] 75mg Take 3 [facility] 25 mg 9-22 tablets by ity of tablet 00:00: mouth in [place] [address] the Medical morning Branch and 3 tablets in the evening. topiramate 2-0 Yes [id number] 75mg Take 3 [facility] 25 mg 9-22 tablets by ity of tablet 00:00: mouth in [place] [address] the Medical morning Branch and 3 tablets in the evening. topiramate 2-0 Yes [id number] 75mg Take 3 [facility] 25 mg 9-22 tablets by ity of tablet 00:00: mouth in [place] [address] the Medical morning Branch and 3 tablets in the evening. topiramate 2-0 Yes [id number] 75mg Take 3 [facility] 25 mg 9-22 tablets by ity of tablet 00:00: mouth in [place] [address] the Medical morning Branch and 3 tablets in the evening. topiramate 2-0 Yes [id number] 75mg Take 3 [facility] 25 mg 9-22 tablets by ity of tablet 00:00: mouth in [place] [address] the Medical morning Branch and 3 tablets in the evening. topiramate 2-0 Yes [id number] 75mg Take 3 [facility] 25 mg 9-22 tablets by ity of tablet 00:00: mouth in [place] [address] the Medical morning Branch and 3 tablets in the evening. topiramate 2022-0 2022- No [id number] 75mg Take 3 [facility] 25 mg 9-22 10-13 tablets by ity of tablet 00:00: 00:00 mouth in [place] 00 :00 the Medical morning Branch and 3 tablets in the evening. SUMAtriptan 2021- No [id number] 50mg Take 1 [facility] 50 mg 9-22 09-30 tablet by ity of tablet 00:00: 00:00 mouth as [place] 00 :00 needed for Medical Migraine. Branch pantoprazol Yes [id number] 40mg Take 1 [facility] e 40 mg EC 9-16 tablet by ity of tablet 00:00: mouth in [place] 00 the Medical morning. Branch Simethicone Yes [id number] 125mg Take 1 [facility] 125 mg 9-16 capsule by ity of 00:00: mouth [place] 00 after Medical meals and Branch at bedtime as needed for Gas (Per bowel prep). pantoprazol Yes [id number] 40mg Take 1 [facility] e 40 mg EC 9-16 tablet by ity of tablet 00:00: mouth in [place] 00 the Medical morning. Branch Simethicone 0 Yes [id number] 125mg Take 1 [facility] 125 mg 9-16 capsule by ity of 00:00: mouth [place] 00 after Medical meals and Branch at bedtime as needed for Gas (Per bowel prep). pantoprazol Yes [id number] 40mg Take 1 [facility] e 40 mg EC 9-16 tablet by ity of tablet 00:00: mouth in [place] 00 the Medical morning. Branch Simethicone 0 Yes [id number] 125mg Take 1 [facility] 125 mg 9-16 capsule by ity of 00:00: mouth [place] 00 after Medical meals and Branch at bedtime as needed for Gas (Per bowel prep). pantoprazol 0 Yes [id number] 40mg Take 1 [facility] e 40 mg EC 9-16 tablet by ity of tablet 00:00: mouth in [place] 00 the Medical morning. Branch Simethicone 0 Yes [id number] 125mg Take 1 [facility] 125 mg 9-16 capsule by ity of 00:00: mouth [place] 00 after Medical meals and Branch at bedtime as needed for Gas (Per bowel prep). pantoprazol 2021-0 Yes [id number] 40mg Take 1 [facility] e 40 mg EC 9-16 tablet by ity of tablet 00:00: mouth in [place] 00 the Medical morning. Branch Simethicone 2021-0 Yes [id number] 125mg Take 1 [facility] 125 mg 9-16 capsule by ity of 00:00: mouth [place] 00 after Medical meals and Branch at bedtime as needed for Gas (Per bowel prep). pantoprazol 2021-0 Yes [id number] 40mg Take 1 [facility] e 40 mg EC 9-16 tablet by ity of tablet 00:00: mouth in [place] 00 the Medical morning. Branch Simethicone 2021-0 Yes [id number] 125mg Take 1 [facility] 125 mg 9-16 capsule by ity of 00:00: mouth [place] 00 after Medical meals and Branch at bedtime as needed for Gas (Per bowel prep). pantoprazol 2021-0 Yes [id number] 40mg Take 1 [facility] e 40 mg EC 9-16 tablet by ity of tablet 00:00: mouth in [place] 00 the Medical morning. Branch Simethicone 2021-0 Yes [id number] 125mg Take 1 [facility] 125 mg 9-16 capsule by ity of 00:00: mouth [place] 00 after Medical meals and Branch at bedtime as needed for Gas (Per bowel prep). pantoprazol 2021-0 Yes [id number] 40mg Take 1 [facility] e 40 mg EC 9-16 tablet by ity of tablet 00:00: mouth in [place] 00 the Medical morning. Branch Simethicone 2021-0 Yes [id number] 125mg Take 1 [facility] 125 mg 9-16 capsule by ity of 00:00: mouth [place] 00 after Medical meals and Branch at bedtime as needed for Gas (Per bowel prep). pantoprazol 2021-0 Yes [id number] 40mg Take 1 [facility] e 40 mg EC 9-16 tablet by ity of tablet 00:00: mouth in [place] 00 the Medical morning. Branch Simethicone 2021-0 Yes [id number] 125mg Take 1 [facility] 125 mg 9-16 capsule by ity of 00:00: mouth [place] 00 after Medical meals and Branch at bedtime as needed for Gas (Per bowel prep). pantoprazol 2021-0 Yes [id number] 40mg Take 1 [facility] e 40 mg EC 9-16 tablet by ity of tablet 00:00: mouth in [place] 00 the Medical morning. Branch Simethicone 2022-0 Yes [id number] 125mg Take 1 [facility] 125 mg 9-16 capsule by ity of 00:00: mouth [place] 00 after Medical meals and Branch at bedtime as needed for Gas (Per bowel prep). pantoprazol 2021-0 Yes [id number] 40mg Take 1 [facility] e 40 mg EC 9-16 tablet by ity of tablet 00:00: mouth in [place] 00 the Medical morning. Branch Simethicone 2021-0 Yes [id number] 125mg Take 1 [facility] 125 mg 9-16 capsule by ity of 00:00: mouth [place] 00 after Medical meals and Branch at bedtime as needed for Gas (Per bowel prep). pantoprazol 0 Yes [id number] 40mg Take 1 [facility] e 40 mg EC 9-16 tablet by ity of tablet 00:00: mouth in [place] 00 the Medical morning. Branch Simethicone 0 Yes [id number] 125mg Take 1 [facility] 125 mg 9-16 capsule by ity of 00:00: mouth [place] 00 after Medical meals and Branch at bedtime as needed for Gas (Per bowel prep). pantoprazol 2021-0 Yes [id number] 40mg Take 1 [facility] e 40 mg EC 9-16 tablet by ity of tablet 00:00: mouth in [place] 00 the Medical morning. Branch Simethicone 2021-0 Yes [id number] 125mg Take 1 [facility] 125 mg 9-16 capsule by ity of 00:00: mouth [place] 00 after Medical meals and Branch at bedtime as needed for Gas (Per bowel prep). pantoprazol 2021-0 Yes [id number] 40mg Take 1 [facility] e 40 mg EC 9-16 tablet by ity of tablet 00:00: mouth in [place] 00 the Medical morning. Branch Simethicone 0 Yes [id number] 125mg Take 1 [facility] 125 mg 9-16 capsule by ity of 00:00: mouth [place] 00 after Medical meals and Branch at bedtime as needed for Gas (Per bowel prep). pantoprazol 2021-0 Yes [id number] 40mg Take 1 [facility] e 40 mg EC 9-16 tablet by ity of tablet 00:00: mouth in [place] 00 the Medical morning. Branch Simethicone 0 Yes [id number] 125mg Take 1 [facility] 125 mg 9-16 capsule by ity of 00:00: mouth [place] 00 after Medical meals and Branch at bedtime as needed for Gas (Per bowel prep). Simethicone 0 Yes [id number] 125mg Take 1 [facility] 125 mg 9-16 capsule by ity of 00:00: mouth [place] 00 after Medical meals and Branch at bedtime as needed for Gas (Per bowel prep). Simethicone 2021-0 Yes [id number] 125mg Take 1 [facility] 125 mg 9-16 capsule by ity of 00:00: mouth [place] 00 after Medical meals and Branch at bedtime as needed for Gas (Per bowel prep). Simethicone 2021- No [id number] 125mg Take 1 [facility] 125 mg 9-16 11-01 capsule by ity of 00:00: 00:00 mouth [place] 00 :00 after Medical meals and Branch at bedtime as needed for Gas (Per bowel prep). Simethicone 2021- No [id number] 125mg Take 1 [facility] 125 mg 9-16 11-01 capsule by ity of 00:00: 00:00 mouth [place] 00 :00 after Medical meals and Branch at bedtime as needed for Gas (Per bowel prep). pantoprazol 2021- No [id number] 40mg Take 1 [facility] e 40 mg EC 9-16 10-13 tablet by ity of tablet 00:00: 00:00 mouth in [place] 00 :00 the Medical morning. Branch SUMAtriptan 0 Yes [id number] TAKE 1 [facility] 50 mg 9-06 TABLET BY ity of tablet 00:00: MOUTH [place] 00 NEEDED FOR Medical MIGRAINE Branch HEADACHE ( MAY REPEAT IN 2 HOURS ) SUMAtriptan 2021-0 Yes [id number] TAKE 1 [facility] 50 mg 9-06 TABLET BY ity of tablet 00:00: MOUTH [place] 00 NEEDED FOR Medical MIGRAINE Branch HEADACHE ( MAY REPEAT IN 2 HOURS ) SUMAtriptan 2021-0 Yes [id number] TAKE 1 [facility] 50 mg 9-06 TABLET BY ity of tablet 00:00: MOUTH [place] 00 NEEDED FOR Medical MIGRAINE Branch HEADACHE ( MAY REPEAT IN 2 HOURS ) SUMAtriptan 2021-0 Yes [id number] TAKE 1 [facility] 50 mg 9-06 TABLET BY ity of tablet 00:00: MOUTH [place] 00 NEEDED FOR Medical MIGRAINE Branch HEADACHE ( MAY REPEAT IN 2 HOURS ) SUMAtriptan 2022-0 Yes [id number] TAKE 1 [facility] 50 mg 9-06 TABLET BY ity of tablet 00:00: MOUTH [place] 00 NEEDED FOR Medical MIGRAINE Branch HEADACHE ( MAY REPEAT IN 2 HOURS ) SUMAtriptan 2-0 Yes [id number] TAKE 1 [facility] 50 mg 9-06 TABLET BY ity of tablet 00:00: MOUTH [place] 00 NEEDED FOR Medical MIGRAINE Branch HEADACHE ( MAY REPEAT IN 2 HOURS ) SUMAtriptan 2-0 Yes [id number] TAKE 1 [facility] 50 mg 9-06 TABLET BY ity of tablet 00:00: MOUTH [place] 00 NEEDED FOR Medical MIGRAINE Branch HEADACHE ( MAY REPEAT IN 2 HOURS ) SUMAtriptan 2-0 Yes [id number] TAKE 1 [facility] 50 mg 9-06 TABLET BY ity of tablet 00:00: MOUTH [place] 00 NEEDED FOR Medical MIGRAINE Branch HEADACHE ( MAY REPEAT IN 2 HOURS ) SUMAtriptan 2-0 Yes [id number] TAKE 1 [facility] 50 mg 9-06 TABLET BY ity of tablet 00:00: MOUTH [place] 00 NEEDED FOR Medical MIGRAINE Branch HEADACHE ( MAY REPEAT IN 2 HOURS ) SUMAtriptan 2-0 Yes [id number] TAKE 1 [facility] 50 mg 9-06 TABLET BY ity of tablet 00:00: MOUTH [place] 00 NEEDED FOR Medical MIGRAINE Branch HEADACHE ( MAY REPEAT IN 2 HOURS ) SUMAtriptan 2-0 Yes [id number] TAKE 1 [facility] 50 mg 9-06 TABLET BY ity of tablet 00:00: MOUTH [place] 00 NEEDED FOR Medical MIGRAINE Branch HEADACHE ( MAY REPEAT IN 2 HOURS ) SUMAtriptan 2-0 Yes [id number] TAKE 1 [facility] 50 mg 9-06 TABLET BY ity of tablet 00:00: MOUTH [place] 00 NEEDED FOR Medical MIGRAINE Branch HEADACHE ( MAY REPEAT IN 2 HOURS ) SUMAtriptan 2022-0 2022- No [id number] TAKE 1 [facility] 50 mg 9-06 09-22 TABLET BY ity of tablet 00:00: 00:00 MOUTH [place] 00 :00 NEEDED FOR Medical MIGRAINE Branch HEADACHE ( MAY REPEAT IN 2 HOURS ) SUMAtriptan 2022-0 2022- No [id number] TAKE 1 [facility] 50 mg 9-06 09-22 TABLET BY ity of tablet 00:00: 00:00 MOUTH [place] 00 :00 NEEDED FOR Medical MIGRAINE Branch HEADACHE ( MAY REPEAT IN 2 HOURS ) SUMAtriptan 2022-0 2022- No [id number] TAKE 1 [facility] 50 mg -06-17 TABLET BY ity of tablet 00:00: 00:00 MOUTH [place] 00 :00 NEEDED FOR Medical MIGRAINE Branch HEADACHE ( MAY REPEAT IN 2 HOURS ) topiramate 2021-0 Yes [id number] Take 2 [facility] 25 mg 9-01 tablets by ity of tablet 00:00: mouth [place] 00 twice Medical daily Branch topiramate 2-0 Yes [id number] Take 2 [facility] 25 mg 9-01 tablets by ity of tablet 00:00: mouth [place] 00 twice Medical daily Branch topiramate 2-0 Yes [id number] Take 2 [facility] 25 mg 9-01 tablets by ity of tablet 00:00: mouth [place] 00 twice Medical daily Branch topiramate 2021-0 Yes [id number] Take 2 [facility] 25 mg 9-01 tablets by ity of tablet 00:00: mouth [place] 00 twice Medical daily Branch topiramate 2-0 Yes [id number] Take 2 [facility] 25 mg 9-01 tablets by ity of tablet 00:00: mouth [place] 00 twice Medical daily Branch topiramate 2-0 Yes [id number] Take 2 [facility] 25 mg 9-01 tablets by ity of tablet 00:00: mouth [place] 00 twice Medical daily Branch topiramate 2-0 Yes [id number] Take 2 [facility] 25 mg 9-01 tablets by ity of tablet 00:00: mouth [place] 00 twice Medical daily Branch topiramate 2-0 Yes [id number] Take 2 [facility] 25 mg 9-01 tablets by ity of tablet 00:00: mouth [place] 00 twice Medical daily Branch topiramate 2-0 Yes [id number] Take 2 [facility] 25 mg 9-01 tablets by ity of tablet 00:00: mouth [place] 00 twice Medical daily Branch topiramate 2-0 Yes [id number] Take 2 [facility] 25 mg 9-01 tablets by ity of tablet 00:00: mouth [place] 00 twice Medical daily Branch topiramate 2-0 Yes [id number] Take 2 [facility] 25 mg 9-01 tablets by ity of tablet 00:00: mouth [place] 00 twice Medical daily Branch topiramate 2-0 Yes [id number] Take 2 [facility] 25 mg 9-01 tablets by ity of tablet 00:00: mouth [place] 00 twice Medical daily Branch topiramate 2021-0 Yes [id number] Take 2 [facility] 25 mg 9-01 tablets by ity of tablet 00:00: mouth 00 twice Medical daily Branch topiramate 2021-0 Yes [id number] Take 2 [facility] 25 mg 9-01 tablets by ity of tablet 00:00: mouth 00 twice Medical daily Branch topiramate 2021-0 Yes [id number] Take 2 [facility] 25 mg 9-01 tablets by ity of tablet 00:00: mouth 00 twice Medical daily Branch topiramate 2021-0 2- No [id number] Take 2 [facility] 25 mg 9-01 -22 tablets by ity of tablet 00:00: 00:00 mouth [place] 00 :00 twice Medical daily Branch topiramate 2021-0 2021- No [id number] Take 2 [facility] 25 mg 9-01 - tablets by ity of tablet 00:00: 00:00 mouth [place] 00 :00 twice Medical daily Branch topiramate 2021-0 2021- No [id number] Take 2 [facility] 25 mg 9-01 -22 tablets by ity of tablet 00:00: 00:00 mouth [place] 00 :00 twice Medical daily Branch methocarbam Yes [id number] 500mg Take 1 [facility] oL 500 mg 8-11 tablet by ity o f tablet 00:00: mouth (four) Medical times Branch daily as needed for Pain (scale 7-10). methocarbam Yes [id number] 500mg Take 1 [facility] oL 500 mg 8-11 tablet by ity o f tablet 00:00: mouth (four) Medical times Branch daily as needed for Pain (scale 7-10). methocarbam Yes [id number] 500mg Take 1 [facility] oL 500 mg 8-11 tablet by ity o f tablet 00:00: mouth (four) Medical times Branch daily as needed for Pain (scale 7-10). methocarbam 0 Yes [id number] 500mg Take 1 [facility] oL 500 mg 8-11 tablet by ity o f tablet 00:00: mouth (four) Medical times Branch daily as needed for Pain (scale 7-10). methocarbam 2021-0 Yes [id number] 500mg Take 1 [facility] oL 500 mg 8-11 tablet by ity o f tablet 00:00: mouth (four) Medical times Branch daily as needed for Pain (scale 7-10). methocarbam 2022-0 Yes [id number] 500mg Take 1 [facility] oL 500 mg 8-11 tablet by ity o f tablet 00:00: mouth (four) Medical times Branch daily as needed for Pain (scale 7-10). methocarbam 2022-0 Yes [id number] 500mg Take 1 [facility] oL 500 mg 8-11 tablet by ity o f tablet 00:00: mouth (four) Medical times Branch daily as needed for Pain (scale 7-10). methocarbam 2-0 Yes [id number] 500mg Take 1 [facility] oL 500 mg 8-11 tablet by ity o f tablet 00:00: mouth (four) Medical times Branch daily as needed for Pain (scale 7-10). methocarbam 2-0 Yes [id number] 500mg Take 1 [facility] oL 500 mg 8-11 tablet by ity o f tablet 00:00: mouth (four) Medical times Branch daily as needed for Pain (scale 7-10). methocarbam 2-0 Yes [id number] 500mg Take 1 [facility] oL 500 mg 8-11 tablet by ity o f tablet 00:00: mouth (four) Medical times Branch daily as needed for Pain (scale 7-10). methocarbam 2-0 Yes [id number] 500mg Take 1 [facility] oL 500 mg 8-11 tablet by ity o f tablet 00:00: mouth (four) Medical times Branch daily as needed for Pain (scale 7-10). methocarbam 2-0 Yes [id number] 500mg Take 1 [facility] oL 500 mg 8-11 tablet by ity o f tablet 00:00: mouth (four) Medical times Branch daily as needed for Pain (scale 7-10). methocarbam 2022-0 Yes [id number] 500mg Take 1 [facility] oL 500 mg 8-11 tablet by ity o f tablet 00:00: mouth (four) Medical times Branch daily as needed for Pain (scale 7-10). methocarbam 2022-0 Yes [id number] 500mg Take 1 [facility] oL 500 mg 8-11 tablet by ity o f tablet 00:00: mouth (four) Medical times Branch daily as needed for Pain (scale 7-10). methocarbam 2022-0 Yes [id number] 500mg Take 1 [facility] oL 500 mg 8-11 tablet by ity o f tablet 00:00: mouth (four) Medical times Branch daily as needed for Pain (scale 7-10). methocarbam 2022-0 Yes [id number] 500mg Take 1 [facility] oL 500 mg 8-11 tablet by ity o f tablet 00:00: mouth (four) Medical times Branch daily as needed for Pain (scale 7-10). methocarbam 2022-0 Yes [id number] 500mg Take 1 [facility] oL 500 mg 8-11 tablet by ity o f tablet 00:00: mouth (four) Medical times Branch daily as needed for Pain (scale 7-10). methocarbam 2022-0 Yes [id number] 500mg Take 1 [facility] oL 500 mg 8-11 tablet by ity o f tablet 00:00: mouth (four) Medical times Branch daily as needed for Pain (scale 7-10). methocarbam 2022-0 Yes [id number] 500mg Take 1 [facility] oL 500 mg 8-11 tablet by ity o f tablet 00:00: mouth (four) Medical times Branch daily as needed for Pain (scale 7-10). methocarbam 2022-0 Yes [id number] 500mg Take 1 [facility] oL 500 mg 8-11 tablet by ity o f tablet 00:00: mouth (four) Medical times Branch daily as needed for Pain (scale 7-10). methocarbam 2022-0 Yes [id number] 500mg Take 1 [facility] oL 500 mg 8-11 tablet by ity o f tablet 00:00: mouth (four) Medical times Branch daily as needed for Pain (scale 7-10). methocarbam 2022-0 Yes [id number] 500mg Take 1 [facility] oL 500 mg 8-11 tablet by ity o f tablet 00:00: mouth (four) Medical times Branch daily as needed for Pain (scale 7-10). methocarbam 2022-0 Yes [id number] 500mg Take 1 [facility] oL 500 mg 8-11 tablet by ity o f tablet 00:00: mouth (four) Medical times Branch daily as needed for Pain (scale 7-10). methocarbam 2022-0 Yes [id number] 500mg Take 1 [facility] oL 500 mg 8-11 tablet by ity o f tablet 00:00: mouth (four) Medical times Branch daily as needed for Pain (scale 7-10). methocarbam 2022-0 Yes [id number] 500mg Take 1 [facility] oL 500 mg 8-11 tablet by ity o f tablet 00:00: mouth (four) Medical times Branch daily as needed for Pain (scale 7-10). methocarbam 2022-0 Yes [id number] 500mg Take 1 [facility] oL 500 mg 8-11 tablet by ity o f tablet 00:00: mouth (four) Medical times Branch daily as needed for Pain (scale 7-10). methocarbam 2022-0 Yes [id number] 500mg Take 1 [facility] oL 500 mg 8-11 tablet by ity o f tablet 00:00: mouth (four) Medical times Branch daily as needed for Pain (scale 7-10). methocarbam 2022-0 Yes [id number] 500mg Take 1 [facility] oL 500 mg 8-11 tablet by ity o f tablet 00:00: mouth (four) Medical times Branch daily as needed for Pain (scale 7-10). methocarbam 2022-0 Yes [id number] 500mg Take 1 [facility] oL 500 mg 8-11 tablet by ity o f tablet 00:00: mouth (four) Medical times Branch daily as needed for Pain (scale 7-10). methocarbam 2022-0 Yes [id number] 500mg Take 1 [facility] oL 500 mg 8-11 tablet by ity o f tablet 00:00: mouth (four) Medical times Branch daily as needed for Pain (scale 7-10). methocarbam 2022-0 Yes [id number] 500mg Take 1 [facility] oL 500 mg 8-11 tablet by ity o f tablet 00:00: mouth (four) Medical times Branch daily as needed for Pain (scale 7-10). methocarbam 2022-0 Yes [id number] 500mg Take 1 [facility] oL 500 mg 8-11 tablet by ity o f tablet 00:00: mouth (four) Medical times Branch daily as needed for Pain (scale 7-10). methocarbam 2022-0 Yes [id number] 500mg Take 1 [facility] oL 500 mg 8-11 tablet by ity o f tablet 00:00: mouth (four) Medical times Branch daily as needed for Pain (scale 7-10). methocarbam 2022-0 Yes [id number] 500mg Take 1 [facility] oL 500 mg 8-11 tablet by ity o f tablet 00:00: mouth (four) Medical times Branch daily as needed for Pain (scale 7-10). methocarbam 2022-0 Yes [id number] 500mg Take 1 [facility] oL 500 mg 8-11 tablet by ity o f tablet 00:00: mouth (four) Medical times Branch daily as needed for Pain (scale 7-10). methocarbam 2022-0 Yes [id number] 500mg Take 1 [facility] oL 500 mg 8-11 tablet by ity o f tablet 00:00: mouth (four) Medical times Branch daily as needed for Pain (scale 7-10). methocarbam 2022-0 Yes [id number] 500mg Take 1 [facility] oL 500 mg 8-11 tablet by ity o f tablet 00:00: mouth (four) Medical times Branch daily as needed for Pain (scale 7-10). methocarbam 2022-0 Yes [id number] 500mg Take 1 [facility] oL 500 mg 8-11 tablet by ity o f tablet 00:00: mouth (four) Medical times Branch daily as needed for Pain (scale 7-10). methocarbam 2022-0 Yes [id number] 500mg Take 1 [facility] oL 500 mg 8-11 tablet by ity o f tablet 00:00: mouth (four) Medical times Branch daily as needed for Pain (scale 7-10). methocarbam 2022-0 Yes [id number] 500mg Take 1 [facility] oL 500 mg 8-11 tablet by ity o f tablet 00:00: mouth (four) Medical times Branch daily as needed for Pain (scale 7-10). methocarbam 2022-0 Yes [id number] 500mg Take 1 [facility] oL 500 mg 8-11 tablet by ity o f tablet 00:00: mouth (four) Medical times Branch daily as needed for Pain (scale 7-10). methocarbam 2022-0 Yes [id number] 500mg Take 1 [facility] oL 500 mg 8-11 tablet by ity o f tablet 00:00: mouth (four) Medical times Branch daily as needed for Pain (scale 7-10). methocarbam 2022-0 Yes [id number] 500mg Take 1 [facility] oL 500 mg 8-11 tablet by ity o f tablet 00:00: mouth (four) Medical times Branch daily as needed for Pain (scale 7-10). methocarbam 2022-0 Yes [id number] 500mg Take 1 [facility] oL 500 mg 8-11 tablet by ity o f tablet 00:00: mouth (four) Medical times Branch daily as needed for Pain (scale 7-10). methocarbam 2022-0 Yes [id number] 500mg Take 1 [facility] oL 500 mg 8-11 tablet by ity o f tablet 00:00: mouth (four) Medical times Branch daily as needed for Pain (scale 7-10). methocarbam 2-0 Yes [id number] 500mg Take 1 [facility] oL 500 mg 8-11 tablet by ity o f tablet 00:00: mouth (four) Medical times Branch daily as needed for Pain (scale 7-10). methocarbam 2022-0 Yes [id number] 500mg Take 1 [facility] oL 500 mg 8-11 tablet by ity o f tablet 00:00: mouth (four) Medical times Branch daily as needed for Pain (scale 7-10). methocarbam 2022-0 Yes [id number] 500mg Take 1 [facility] oL 500 mg 8-11 tablet by ity o f tablet 00:00: mouth (four) Medical times Branch daily as needed for Pain (scale 7-10). methocarbam 2022-0 Yes [id number] 500mg Take 1 [facility] oL 500 mg 8-11 tablet by ity o f tablet 00:00: mouth (four) Medical times Branch daily as needed for Pain (scale 7-10). methocarbam 2022-0 Yes [id number] 500mg Take 1 [facility] oL 500 mg 8-11 tablet by ity o f tablet 00:00: mouth (four) Medical times Branch daily as needed for Pain (scale 7-10). methocarbam 2022-0 Yes [id number] 500mg Take 1 [facility] oL 500 mg 8-11 tablet by ity o f tablet 00:00: mouth (four) Medical times Branch daily as needed for Pain (scale 7-10). methocarbam 2-0 Yes [id number] 500mg Take 1 [facility] oL 500 mg 8-11 tablet by ity o f tablet 00:00: mouth (four) Medical times Branch daily as needed for Pain (scale 7-10). methocarbam 2022-0 Yes [id number] 500mg Take 1 [facility] oL 500 mg 8-11 tablet by ity o f tablet 00:00: mouth (four) Medical times Branch daily as needed for Pain (scale 7-10). methocarbam 2-0 Yes [id number] 500mg Take 1 [facility] oL 500 mg 8-11 tablet by ity o f tablet 00:00: mouth (four) Medical times Branch daily as needed for Pain (scale 7-10). methocarbam 2-0 Yes [id number] 500mg Take 1 [facility] oL 500 mg 8-11 tablet by ity o f tablet 00:00: mouth (four) Medical times Branch daily as needed for Pain (scale 7-10). methocarbam 2-0 Yes [id number] 500mg Take 1 [facility] o[facility] 500 mg 8-11 tablet by [facility] o f tablet 00:00: mouth (four) Medical times Branch daily as needed for Pain (scale 7-10). methocarbam 2-0 Yes [id number] 500mg Take 1 [facility] oL 500 mg 8-11 tablet by [facility] o f tablet 00:00: mouth (four) Medical times Branch daily as needed for Pain (scale 7-10). methocarbam 2-0 Yes [id number] 500mg Take 1 [facility] oL 500 mg 8-11 tablet by [facility] o f tablet 00:00: mouth (four) Medical times Branch daily as needed for Pain (scale 7-10). methocarbam 2022-0 Yes [id number] 500mg Take 1 [facility] oL 500 mg 8-11 tablet by [facility] o f tablet 00:00: mouth (four) Medical times Branch daily as needed for Pain (scale 7-10). methocarbam 2022-0 Yes [id number] 500mg Take 1 [facility] oL 500 mg 8-11 tablet by [facility] o f tablet 00:00: mouth 4 [place] 00 (four) Medical times Branch daily as needed for Pain (scale 7-10). methocarbam 0 3- No [id number] 500mg Take 1 [facility] oL 500 mg 8-07 27-24 tablet by [facility] tablet 00:00: 00:00 mouth 4 [place] 00 :00 (four) Medical times Branch daily as needed for Pain (scale 7-10). methocarbam 3- No [id number] 500mg Take 1 [facility] oL 500 mg 8-07 27-24 tablet by [facility] tablet 00:00: 00:00 mouth 4 [place] 00 :00 (four) Medical times Branch daily as needed for Pain (scale 7-10). methocarbam 3- No [id number] 500mg Take 1 [facility] oL 500 mg 8-07 27-24 tablet by [facility] tablet 00:00: 00:00 mouth 4 [place] 00 :00 (four) Medical times Branch daily as needed for Pain (scale 7-10). methocarbam 3- No [id number] 500mg Take 1 [facility] oL 500 mg 824 tablet by [facility] of tablet 00:00: 00:00 mouth 4 [place] 00 :00 (four) Medical times Branch daily as needed for Pain (scale 7-10). methocarbam 3- No [id number] 500mg Take 1 [facility] oL 500 mg 824 tablet by [facility] of tablet 00:00: 00:00 mouth 4 [place] 00 :00 (four) Medical times Branch daily as needed for Pain (scale 7-10). LOSARTAN 50 2021-0 Yes [id number] Take 1 [facility] mg tablet 7-20 tablet by [facility] o f 00:00: mouth [place] 00 twice Medical daily Branch DILTIAZEM 2021-0 Yes [id number] Take 1 [facility] 120 mg 24 7-20 capsule by [facility] of hr capsule 00:00: mouth [place] 00 twice Medical daily Branch LOSARTAN 50 2021-0 Yes [id number] Take 1 [facility] mg tablet 7-20 tablet by [facility] o f 00:00: mouth [place] 00 twice Medical daily Branch DILTIAZEM 2021-0 Yes [id number] Take 1 [facility] [place] 120 mg 24 7-20 capsule by [facility] of hr capsule 00:00: mouth twice Medical daily Branch LOSARTAN 50 2021-0 Yes [id number] Take 1 [facility] mg tablet 7-20 tablet by [facility] o f 00:00: mouth twice Medical daily Branch DILTIAZEM 2021-0 Yes [id number] Take 1 [facility] [place] 120 mg 24 7-20 capsule by [facility] of hr capsule 00:00: mouth twice Medical daily Branch LOSARTAN 50 2021-0 Yes [id number] Take 1 [facility] mg tablet 7-20 tablet by [facility] o f 00:00: mouth twice Medical daily Branch DILTIAZEM 2021-0 Yes [id number] Take 1 [facility] [place] 120 mg 24 7-20 capsule by [facility] of hr capsule 00:00: mouth twice Medical daily Branch LOSARTAN 50 2021-0 Yes [id number] Take 1 [facility] mg tablet 7-20 tablet by [facility] o f 00:00: mouth twice Medical daily Branch DILTIAZEM 2021-0 Yes [id number] Take 1 [facility] [place] 120 mg 24 7-20 capsule by [facility] of hr capsule 00:00: mouth twice Medical daily Branch LOSARTAN 50 2021-0 Yes [id number] Take 1 [facility] mg tablet 7-20 tablet by [facility] o f 00:00: mouth twice Medical daily Branch DILTIAZEM 2021-0 Yes [id number] Take 1 [facility] [place] 120 mg 24 7-20 capsule by [facility] of hr capsule 00:00: mouth twice Medical daily Branch LOSARTAN 50 2021-0 Yes [id number] Take 1 [facility] mg tablet 7-20 tablet by [facility]y o f 00:00: mouth twice Medical daily Branch DILTIAZEM 2021-0 Yes [id number] Take 1 [facility] [place] 120 mg 24 7-20 capsule by [facility] of hr capsule 00:00: mouth twice Medical daily Branch LOSARTAN 50 2021-0 Yes [id number] Take 1 [facility] mg tablet 7-20 tablet by [facility]y o f 00:00: mouth twice Medical daily Branch DILTIAZEM 2021-0 Yes [id number] Take 1 [facility] [place] 120 mg 24 7-20 capsule by [facility] of hr capsule 00:00: mouth twice Medical daily Branch LOSARTAN 50 2021-0 Yes [id number] Take 1 [facility] mg tablet 7-20 tablet by [facility] o f 00:00: mouth twice Medical daily Branch DILTIAZEM 2-0 Yes [id number] Take 1 [facility] [place] 120 mg 24 7-20 capsule by [facility] of hr capsule 00:00: mouth twice Medical daily Branch LOSARTAN 50 2021-0 Yes [id number] Take 1 [facility] mg tablet 7-20 tablet by [facility] o f 00:00: mouth twice Medical daily Branch DILTIAZEM 2021-0 Yes [id number] Take 1 [facility] [place] 120 mg 24 7-20 capsule by [facility] of hr capsule 00:00: mouth twice Medical daily Branch LOSARTAN 50 2021-0 Yes [id number] Take 1 [facility] mg tablet 7-20 tablet by [facility] o f 00:00: mouth twice Medical daily Branch DILTIAZEM 2021-0 Yes [id number] Take 1 [facility] [place] 120 mg 24 7-20 capsule by [facility] of hr capsule 00:00: mouth twice Medical daily Branch LOSARTAN 50 2021-0 Yes [id number] Take 1 [facility] mg tablet 7-20 tablet by [facility]y o f 00:00: mouth twice Medical daily Branch DILTIAZEM 2021-0 Yes [id number] Take 1 [facility] [place] 120 mg 24 7-20 capsule by [facility] of hr capsule 00:00: mouth twice Medical daily Branch LOSARTAN 50 2021-0 Yes [id number] Take 1 [facility] mg tablet 7-20 tablet by [facility]y o f 00:00: mouth twice Medical daily Branch DILTIAZEM 2021-0 Yes [id number] Take 1 [facility] [place] 120 mg 24 7-20 capsule by [facility] of hr capsule 00:00: mouth twice Medical daily Branch LOSARTAN 50 2021-0 Yes [id number] Take 1 [facility] mg tablet 7-20 tablet by [facility] o f 00:00: mouth twice Medical daily Branch DILTIAZEM 2-0 Yes [id number] Take 1 [facility] [place] 120 mg 24 7-20 capsule by [facility] of hr capsule 00:00: mouth twice Medical daily Branch LOSARTAN 50 2021-0 Yes [id number] Take 1 [facility] mg tablet 7-20 tablet by [facility] o f 00:00: mouth twice Medical daily Branch DILTIAZEM 2021-0 Yes [id number] Take 1 [facility] [place] 120 mg 24 7-20 capsule by [facility] of hr capsule 00:00: mouth twice Medical daily Branch LOSARTAN 50 2021-0 Yes [id number] Take 1 [facility] mg tablet 7-20 tablet by [facility] o f 00:00: mouth twice Medical daily Branch DILTIAZEM 2021-0 Yes [id number] Take 1 [facility] [place] 120 mg 24 7-20 capsule by [facility] of hr capsule 00:00: mouth twice Medical daily Branch LOSARTAN 50 2021-0 Yes [id number] Take 1 [facility] mg tablet 7-20 tablet by [facility] o f 00:00: mouth twice Medical daily Branch DILTIAZEM 2021-0 Yes [id number] Take 1 [facility] [place] 120 mg 24 7-20 capsule by [facility] of hr capsule 00:00: mouth twice Medical daily Branch LOSARTAN 50 2021-0 Yes [id number] Take 1 [facility] mg tablet 7-20 tablet by [facility] o f 00:00: mouth twice Medical daily Branch DILTIAZEM 2021-0 Yes [id number] Take 1 [facility] [place] 120 mg 24 7-20 capsule by [facility] of hr capsule 00:00: mouth twice Medical daily Branch LOSARTAN 50 2021-0 Yes [id number] Take 1 [facility] mg tablet 7-20 tablet by [facility] o f 00:00: mouth twice Medical daily Branch DILTIAZEM 2021-0 Yes [id number] Take 1 [facility] [place] 120 mg 24 7-20 capsule by [facility] of hr capsule 00:00: mouth twice Medical daily Branch LOSARTAN 50 2021-0 Yes [id number] Take 1 [facility] mg tablet 7-20 tablet by [facility] o f 00:00: mouth twice Medical daily Branch DILTIAZEM 2021-0 Yes [id number] Take 1 [facility] [place] 120 mg 24 7-20 capsule by [facility] of hr capsule 00:00: mouth twice Medical daily Branch LOSARTAN 50 2021-0 Yes [id number] Take 1 [facility] mg tablet 7-20 tablet by [facility] o f 00:00: mouth twice Medical daily Branch DILTIAZEM 2021-0 Yes [id number] Take 1 [facility] [place] 120 mg 24 7-20 capsule by [facility] of hr capsule 00:00: mouth twice Medical daily Branch LOSARTAN 50 2021-0 Yes [id number] Take 1 [facility] mg tablet 7-20 tablet by [facility] o f 00:00: mouth twice Medical daily Branch DILTIAZEM 2021-0 Yes [id number] Take 1 [facility] [place] 120 mg 24 7-20 capsule by [facility] of hr capsule 00:00: mouth twice Medical daily Branch LOSARTAN 50 2021-0 Yes [id number] Take 1 [facility] mg tablet 7-20 tablet by [facility] o f 00:00: mouth twice Medical daily Branch DILTIAZEM 2021-0 Yes [id number] Take 1 [facility] [place] 120 mg 24 7-20 capsule by [facility] of hr capsule 00:00: mouth twice Medical daily Branch LOSARTAN 50 2021-0 Yes [id number] Take 1 [facility] mg tablet 7-20 tablet by [facility] o f 00:00: mouth twice Medical daily Branch DILTIAZEM 2021-0 Yes [id number] Take 1 [facility] [place] 120 mg 24 7-20 capsule by [facility] of hr capsule 00:00: mouth twice Medical daily Branch LOSARTAN 50 2021-0 Yes [id number] Take 1 [facility] mg tablet 7-20 tablet by [facility] o f 00:00: mouth twice Medical daily Branch DILTIAZEM 2021-0 Yes [id number] Take 1 [facility] [place] 120 mg 24 7-20 capsule by [facility] of hr capsule 00:00: mouth twice Medical daily Branch LOSARTAN 50 2021-0 Yes [id number] Take 1 [facility] mg tablet 7-20 tablet by [facility] o f 00:00: mouth twice Medical daily Branch DILTIAZEM 2021-0 Yes [id number] Take 1 [facility] [place] 120 mg 24 7-20 capsule by [facility] of hr capsule 00:00: mouth twice Medical daily Branch LOSARTAN 50 2021-0 Yes [id number] Take 1 [facility] mg tablet 7-20 tablet by [facility] o f 00:00: mouth twice Medical daily Branch DILTIAZEM 2021-0 Yes [id number] Take 1 [facility] [place] 120 mg 24 7-20 capsule by [facility] of hr capsule 00:00: mouth twice Medical daily Branch LOSARTAN 50 2021-0 Yes [id number] Take 1 [facility] mg tablet 7-20 tablet by [facility] o f 00:00: mouth twice Medical daily Branch DILTIAZEM 2-0 Yes [id number] Take 1 [facility] [place] 120 mg 24 7-20 capsule by [facility] of hr capsule 00:00: mouth twice Medical daily Branch LOSARTAN 50 2021-0 Yes [id number] Take 1 [facility] mg tablet 7-20 tablet by [facility] o f 00:00: mouth twice Medical daily Branch DILTIAZEM 2021-0 Yes [id number] Take 1 [facility] [place] 120 mg 24 7-20 capsule by [facility] of hr capsule 00:00: mouth twice Medical daily Branch LOSARTAN 50 2021-0 Yes [id number] Take 1 [facility] mg tablet 7-20 tablet by [facility]y o f 00:00: mouth twice Medical daily Branch DILTIAZEM 2021-0 Yes [id number] Take 1 [facility] [place] 120 mg 24 7-20 capsule by [facility] of hr capsule 00:00: mouth twice Medical daily Branch LOSARTAN 50 2021-0 Yes [id number] Take 1 [facility] mg tablet 7-20 tablet by [facility] o f 00:00: mouth twice Medical daily Branch DILTIAZEM 2021-0 Yes [id number] Take 1 [facility] [place] 120 mg 24 7-20 capsule by [facility] of hr capsule 00:00: mouth twice Medical daily Branch LOSARTAN 50 2021-0 Yes [id number] Take 1 [facility] mg tablet 7-20 tablet by [facility]y o f 00:00: mouth twice Medical daily Branch DILTIAZEM 2021-0 Yes [id number] Take 1 [facility] [place] 120 mg 24 7-20 capsule by [facility] of hr capsule 00:00: mouth twice Medical daily Branch LOSARTAN 50 2021-0 2021- No [id number] Take 1 [facility] mg tablet 7-20 10-13 tablet by [facility]y of 00:00: 00:00 mouth [place] 00 :00 twice Medical daily Branch DILTIAZEM 2021-0 2021- No [id number] Take 1 [facility] 120 mg 24 7-20 10-13 capsule by [facility] of hr capsule 00:00: 00:00 mouth [place] 00 :00 twice Medical daily Branch methocarbam 2021-0 Yes [id number] 500mg Take 1 [facility] oL 500 mg 7-02 tablet by [facility] o f tablet 00:00: mouth (four) Medical times Branch daily. methocarbam 2021-0 Yes [id number] 500mg Take 1 [facility] oL 500 mg 7-02 tablet by [facility] o f tablet 00:00: mouth (four) Medical times Branch daily. methocarbam 2021-0 Yes [id number] 500mg Take 1 [facility] oL 500 mg 7-02 tablet by [facility] o f tablet 00:00: mouth 4 [place] 00 (four) Medical times Branch daily. methocarbam 2-0 Yes [id number] 500mg Take 1 [facility] oL 500 mg 7-02 tablet by [facility] o f tablet 00:00: mouth 4 [place] 00 (four) Medical times Branch daily. methocarbam 2-0 Yes [id number] 500mg Take 1 [facility] oL 500 mg 7-02 tablet by [facility] o f tablet 00:00: mouth 4 [place] 00 (four) Medical times Branch daily. methocarbam 2021-0 2022- No [id number] 500mg Take 1 [facility] oL 500 mg 7-02 08-11 tablet by [facility] of tablet 00:00: 00:00 mouth 4 [place] 00 :00 (four) Medical times Branch daily. SUMATRIPTAN 2021-0 Yes [id number] TAKE 1 [facility] 50 mg 6-17 TABLET BY [facility] of tablet 00:00: MOUTH [place] 00 NEEDED FOR Medical MIGRAINE Branch HEADACHE (MAY REPEAT IN TWO HOURS) SUMATRIPTAN 2021-0 Yes [id number] TAKE 1 [facility] 50 mg 6-17 TABLET BY [facility] of tablet 00:00: MOUTH [place] 00 NEEDED FOR Medical MIGRAINE Branch HEADACHE (MAY REPEAT IN TWO HOURS) SUMATRIPTAN 2-0 Yes [id number] TAKE 1 [facility] 50 mg 6-17 TABLET BY [facility] of tablet 00:00: MOUTH [place] 00 NEEDED FOR Medical MIGRAINE Branch HEADACHE (MAY REPEAT IN TWO HOURS) SUMATRIPTAN 2-0 Yes [id number] TAKE 1 [facility] 50 mg 6-17 TABLET BY [facility] of tablet 00:00: MOUTH [place] 00 NEEDED FOR Medical MIGRAINE Branch HEADACHE (MAY REPEAT IN TWO HOURS) SUMATRIPTAN 2-0 Yes [id number] TAKE 1 [facility] 50 mg 6-17 TABLET BY [facility] of tablet 00:00: MOUTH [place] 00 NEEDED FOR Medical MIGRAINE Branch HEADACHE (MAY REPEAT IN TWO HOURS) SUMATRIPTAN 2022-0 Yes [id number] TAKE 1 [facility] 50 mg 6-17 TABLET BY [facility] of tablet 00:00: MOUTH [place] 00 NEEDED FOR Medical MIGRAINE Branch HEADACHE (MAY REPEAT IN TWO HOURS) SUMATRIPTAN 2022-0 Yes [id number] TAKE 1 [facility] 50 mg 6-17 TABLET BY [facility] of tablet 00:00: MOUTH [place] 00 NEEDED FOR Medical MIGRAINE Branch HEADACHE (MAY REPEAT IN TWO HOURS) SUMATRIPTAN 2022-0 Yes [id number] TAKE 1 [facility] 50 mg 6-17 TABLET BY [facility] of tablet 00:00: MOUTH [place] 00 NEEDED FOR Medical MIGRAINE Branch HEADACHE (MAY REPEAT IN TWO HOURS) SUMATRIPTAN 2022-0 Yes [id number] TAKE 1 [facility] 50 mg 6-17 TABLET BY [facility] of tablet 00:00: MOUTH [place] 00 NEEDED FOR Medical MIGRAINE Branch HEADACHE (MAY REPEAT IN TWO HOURS) SUMATRIPTAN 2022-0 Yes [id number] TAKE 1 [facility] 50 mg 6-17 TABLET BY [facility] of tablet 00:00: MOUTH [place] 00 NEEDED FOR Medical MIGRAINE Branch HEADACHE (MAY REPEAT IN TWO HOURS) SUMATRIPTAN 2022-0 Yes [id number] TAKE 1 [facility] 50 mg 6-17 TABLET BY [facility] of tablet 00:00: MOUTH [place] 00 NEEDED FOR Medical MIGRAINE Branch HEADACHE (MAY REPEAT IN TWO HOURS) SUMATRIPTAN 2022-0 Yes [id number] TAKE 1 [facility] 50 mg 6-17 TABLET BY [facility] of tablet 00:00: MOUTH [place] 00 NEEDED FOR Medical MIGRAINE Branch HEADACHE (MAY REPEAT IN TWO HOURS) SUMATRIPTAN 2022-0 Yes [id number] TAKE 1 [facility] 50 mg 6-17 TABLET BY [facility] of tablet 00:00: MOUTH [place] 00 NEEDED FOR Medical MIGRAINE Branch HEADACHE (MAY REPEAT IN TWO HOURS) SUMATRIPTAN 2022-0 Yes [id number] TAKE 1 [facility] 50 mg 6-17 TABLET BY [facility] of tablet 00:00: MOUTH [place] 00 NEEDED FOR Medical MIGRAINE Branch HEADACHE (MAY REPEAT IN TWO HOURS) SUMATRIPTAN 2022-0 Yes [id number] TAKE 1 [facility] 50 mg 6-17 TABLET BY [facility] of tablet 00:00: MOUTH [place] 00 NEEDED FOR Medical MIGRAINE Branch HEADACHE (MAY REPEAT IN TWO HOURS) SUMATRIPTAN 2022-0 Yes [id number] TAKE 1 [facility] 50 mg 6-17 TABLET BY [facility] of tablet 00:00: MOUTH [place] 00 NEEDED FOR Medical MIGRAINE Branch HEADACHE (MAY REPEAT IN TWO HOURS) SUMATRIPTAN 2022-0 Yes [id number] TAKE 1 [facility] 50 mg 6-17 TABLET BY [facility] of tablet 00:00: MOUTH [place] 00 NEEDED FOR Medical MIGRAINE Branch HEADACHE (MAY REPEAT IN TWO HOURS) SUMATRIPTAN 2021-2021- No [id number] TAKE 1 [facility] 50 mg 6-17 09-06 TABLET BY [facility] of tablet 00:00: 00:00 MOUTH [place] 00 :00 NEEDED FOR Medical MIGRAINE Branch HEADACHE (MAY REPEAT IN TWO HOURS) SUMATRIPTAN 2021-0 2021- No [id number] TAKE 1 [facility] 50 mg 6-17 09-06 TABLET BY [facility] of tablet 00:00: 00:00 MOUTH [place] 00 :00 NEEDED FOR Medical MIGRAINE Branch HEADACHE (MAY REPEAT IN TWO HOURS) fexofenadin 0 Yes [id number] 180mg Take 1 [facility] e (LUIS 6-13 tablet by [facility] of ALLERGY) 00:00: mouth [place] 180 mg 00 daily. Medical tablet Branch fexofenadin Yes [id number] 180mg Take 1 [facility] e (LUIS 6-13 tablet by [facility]y of ALLERGY) 00:00: mouth [place] 180 mg 00 daily. Medical tablet Branch fexofenadin Yes [id number] 180mg Take 1 [facility] e (LUIS 6-13 tablet by [facility]y of ALLERGY) 00:00: mouth [place] 180 mg 00 daily. Medical tablet Branch fexofenadin Yes [id number] 180mg Take 1 [facility] e (LUIS 6-13 tablet by ity of ALLERGY) 00:00: mouth [place] 180 mg 00 daily. Medical tablet Branch fexofenadin Yes [id number] 180mg Take 1 [facility] e (LUIS 6-13 tablet by [facility]y of ALLERGY) 00:00: mouth [place] 180 mg 00 daily. Medical tablet Branch fexofenadin Yes [id number] 180mg Take 1 [facility] e (LUIS 6-13 tablet by ity of ALLERGY) 00:00: mouth [place] 180 mg 00 daily. Medical tablet Branch fexofenadin Yes [id number] 180mg Take 1 [facility] e (LUIS 6-13 tablet by ity of ALLERGY) 00:00: mouth [place] 180 mg 00 daily. Medical tablet Branch fexofenadin Yes [id number] 180mg Take 1 [facility] e (LUIS 6-13 tablet by ity of ALLERGY) 00:00: mouth [place] 180 mg 00 daily. Medical tablet Branch fexofenadin 2022-0 Yes [id number] 180mg Take 1 [facility] e (LUIS 6-13 tablet by [facility]y of ALLERGY) 00:00: mouth [place] 180 mg 00 daily. Medical tablet Branch fexofenadin 0 Yes [id number] 180mg Take 1 [facility] e (LUIS 6-13 tablet by ity of ALLERGY) 00:00: mouth [place] 180 mg 00 daily. Medical tablet Branch fexofenadin 0 Yes [id number] 180mg Take 1 [facility] e (LUIS 6-13 tablet by [facility]y of ALLERGY) 00:00: mouth [place] 180 mg 00 daily. Medical tablet Branch fexofenadin Yes [id number] 180mg Take 1 [facility] e (LUIS 6-13 tablet by ity of ALLERGY) 00:00: mouth [place] 180 mg 00 daily. Medical tablet Branch fexofenadin Yes [id number] 180mg Take 1 [facility] e (LUIS 6-13 tablet by ity of ALLERGY) 00:00: mouth [place] 180 mg 00 daily. Medical tablet Branch fexofenadin Yes [id number] 180mg Take 1 [facility] e (LUIS 6-13 tablet by ity of ALLERGY) 00:00: mouth [place] 180 mg 00 daily. Medical tablet Branch fexofenadin Yes [id number] 180mg Take 1 [facility] e (LUIS 6-13 tablet by [facility]y of ALLERGY) 00:00: mouth [place] 180 mg 00 daily. Medical tablet Branch fexofenadin Yes [id number] 180mg Take 1 [facility] e (LUIS 6-13 tablet by ity of ALLERGY) 00:00: mouth [place] 180 mg 00 daily. Medical tablet Branch fexofenadin 0 Yes [id number] 180mg Take 1 [facility] e (LUIS 6-13 tablet by ity of ALLERGY) 00:00: mouth [place] 180 mg 00 daily. Medical tablet Branch fexofenadin 0 Yes [id number] 180mg Take 1 [facility] e (LUIS 6-13 tablet by ity of ALLERGY) 00:00: mouth [place] 180 mg 00 daily. Medical tablet Branch fexofenadin Yes [id number] 180mg Take 1 [facility] e (LUIS 6-13 tablet by ity of ALLERGY) 00:00: mouth [place] 180 mg 00 daily. Medical tablet Branch fexofenadin 2022-0 Yes [id number] 180mg Take 1 [facility] e (LUIS 6-13 tablet by [facility]y of ALLERGY) 00:00: mouth [place] 180 mg 00 daily. Medical tablet Branch fexofenadin 0 Yes [id number] 180mg Take 1 [facility] e (LUIS 6-13 tablet by ity of ALLERGY) 00:00: mouth [place] 180 mg 00 daily. Medical tablet Branch fexofenadin 0 Yes [id number] 180mg Take 1 [facility] e (LUIS 6-13 tablet by ity of ALLERGY) 00:00: mouth [place] 180 mg 00 daily. Medical tablet Branch fexofenadin Yes [id number] 180mg Take 1 [facility] e (LUIS 6-13 tablet by ity of ALLERGY) 00:00: mouth [place] 180 mg 00 daily. Medical tablet Branch fexofenadin Yes [id number] 180mg Take 1 [facility] e (LUIS 6-13 tablet by ity of ALLERGY) 00:00: mouth [place] 180 mg 00 daily. Medical tablet Branch fexofenadin Yes [id number] 180mg Take 1 [facility] e (LUIS 6-13 tablet by [facility]y of ALLERGY) 00:00: mouth [place] 180 mg 00 daily. Medical tablet Branch fexofenadin 0 Yes [id number] 180mg Take 1 [facility] e (LUIS 6-13 tablet by ity of ALLERGY) 00:00: mouth [place] 180 mg 00 daily. Medical tablet Branch fexofenadin 0 Yes [id number] 180mg Take 1 [facility] e (LUIS 6-13 tablet by ity of ALLERGY) 00:00: mouth [place] 180 mg 00 daily. Medical tablet Branch fexofenadin Yes [id number] 180mg Take 1 [facility] e (LUIS 6-13 tablet by [facility]y of ALLERGY) 00:00: mouth [place] 180 mg 00 daily. Medical tablet Branch fexofenadin 0 Yes [id number] 180mg Take 1 [facility] e (LUIS 6-13 tablet by ity of ALLERGY) 00:00: mouth [place] 180 mg 00 daily. Medical tablet Branch fexofenadin Yes [id number] 180mg Take 1 [facility] e (LUIS 6-13 tablet by ity of ALLERGY) 00:00: mouth [place] 180 mg 00 daily. Medical tablet Branch fexofenadin 0 Yes [id number] 180mg Take 1 [facility] e (LUIS 6-13 tablet by ity of ALLERGY) 00:00: mouth [place] 180 mg 00 daily. Medical tablet Branch fexofenadin Yes [id number] 180mg Take 1 [facility] e (LUIS 6-13 tablet by [facility]y of ALLERGY) 00:00: mouth [place] 180 mg 00 daily. Medical tablet Branch fexofenadin 0 Yes [id number] 180mg Take 1 [facility] e (LUIS 6-13 tablet by ity of ALLERGY) 00:00: mouth [place] 180 mg 00 daily. Medical tablet Branch fexofenadin Yes [id number] 180mg Take 1 [facility] e (LUIS 6-13 tablet by ity of ALLERGY) 00:00: mouth [place] 180 mg 00 daily. Medical tablet Branch fexofenadin Yes [id number] 180mg Take 1 [facility] e (LUIS 6-13 tablet by ity of ALLERGY) 00:00: mouth [place] 180 mg 00 daily. Medical tablet Branch fexofenadin Yes [id number] 180mg Take 1 [facility] e (LUIS 6-13 tablet by ity of ALLERGY) 00:00: mouth [place] 180 mg 00 daily. Medical tablet Branch fexofenadin Yes [id number] 180mg Take 1 [facility] e (LUIS 6-13 tablet by ity of ALLERGY) 00:00: mouth [place] 180 mg 00 daily. Medical tablet Branch fexofenadin Yes [id number] 180mg Take 1 [facility] e (LUIS 6-13 tablet by ity of ALLERGY) 00:00: mouth [place] 180 mg 00 daily. Medical tablet Branch fexofenadin Yes [id number] 180mg Take 1 [facility] e (LUIS 6-13 tablet by ity of ALLERGY) 00:00: mouth [place] 180 mg 00 daily. Medical tablet Branch fexofenadin Yes [id number] 180mg Take 1 [facility] e (LUIS 6-13 tablet by [facility]y of ALLERGY) 00:00: mouth [place] 180 mg 00 daily. Medical tablet Branch fexofenadin Yes [id number] 180mg Take 1 [facility] e (LUIS 6-13 tablet by ity of ALLERGY) 00:00: mouth [place] 180 mg 00 daily. Medical tablet Branch fexofenadin 2021-0 Yes [id number] 180mg Take 1 [facility] e (LUIS 6-13 tablet by ity of ALLERGY) 00:00: mouth [place] 180 mg 00 daily. Medical tablet Branch fexofenadin 0 Yes [id number] 180mg Take 1 [facility] e (LUIS 6-13 tablet by ity of ALLERGY) 00:00: mouth [place] 180 mg 00 daily. Medical tablet Branch fexofenadin 0 Yes [id number] 180mg Take 1 [facility] e (LUIS 6-13 tablet by ity of ALLERGY) 00:00: mouth [place] 180 mg 00 daily. Medical tablet Branch fexofenadin Yes [id number] 180mg Take 1 [facility] e (LUIS 6-13 tablet by ity of ALLERGY) 00:00: mouth [place] 180 mg 00 daily. Medical tablet Branch fexofenadin Yes [id number] 180mg Take 1 [facility] e (LUIS 6-13 tablet by ity of ALLERGY) 00:00: mouth [place] 180 mg 00 daily. Medical tablet Branch fexofenadin Yes [id number] 180mg Take 1 [facility] e (LUIS 6-13 tablet by ity of ALLERGY) 00:00: mouth [place] 180 mg 00 daily. Medical tablet Branch fexofenadin Yes [id number] 180mg Take 1 [facility] e (LUIS 6-13 tablet by ity of ALLERGY) 00:00: mouth [place] 180 mg 00 daily. Medical tablet Branch fexofenadin 0 Yes [id number] 180mg Take 1 [facility] e (LUIS 6-13 tablet by ity of ALLERGY) 00:00: mouth [place] 180 mg 00 daily. Medical tablet Branch fexofenadin 0 Yes [id number] 180mg Take 1 [facility] e (LUIS 6-13 tablet by ity of ALLERGY) 00:00: mouth [place] 180 mg 00 daily. Medical tablet Branch fexofenadin 0 Yes [id number] 180mg Take 1 [facility] e (LUIS 6-13 tablet by ity of ALLERGY) 00:00: mouth [place] 180 mg 00 daily. Medical tablet Branch fexofenadin 0 Yes [id number] 180mg Take 1 [facility] e (LUIS 6-13 tablet by ity of ALLERGY) 00:00: mouth [place] 180 mg 00 daily. Medical tablet Branch fexofenadin 0 Yes [id number] 180mg Take 1 [facility] e (LUIS 6-13 tablet by ity of ALLERGY) 00:00: mouth [place] 180 mg 00 daily. Medical tablet Branch fexofenadin 0 Yes [id number] 180mg Take 1 [facility] e (LUIS 6-13 tablet by ity of ALLERGY) 00:00: mouth [place] 180 mg 00 daily. Medical tablet Branch fexofenadin 0 Yes [id number] 180mg Take 1 [facility] e (LUIS 6-13 tablet by ity of ALLERGY) 00:00: mouth [place] 180 mg 00 daily. Medical tablet Branch fexofenadin 0 Yes [id number] 180mg Take 1 [facility] e (LUIS 6-13 tablet by ity of ALLERGY) 00:00: mouth [place] 180 mg 00 daily. Medical tablet Branch fexofenadin Yes [id number] 180mg Take 1 [facility] e (LUIS 6-13 tablet by ity of ALLERGY) 00:00: mouth [place] 180 mg 00 daily. Medical tablet Branch fexofenadin Yes [id number] 180mg Take 1 [facility] e (LUIS 6-13 tablet by ity of ALLERGY) 00:00: mouth [place] 180 mg 00 daily. Medical tablet Branch fexofenadin Yes [id number] 180mg Take 1 [facility] e (LUIS 6-13 tablet by ity of ALLERGY) 00:00: mouth [place] 180 mg 00 daily. Medical tablet Branch fexofenadin 2021-0 Yes [id number] 180mg Take 1 [facility] e (LUIS 6-13 tablet by ity of ALLERGY) 00:00: mouth [place] 180 mg 00 daily. Medical tablet Branch fexofenadin 0 Yes [id number] 180mg Take 1 [facility] e (LUIS 6-13 tablet by ity of ALLERGY) 00:00: mouth [place] 180 mg 00 daily. Medical tablet Branch fexofenadin 0 Yes [id number] 180mg Take 1 [facility] e (LUIS 6-13 tablet by ity of ALLERGY) 00:00: mouth [place] 180 mg 00 daily. Medical tablet Branch fexofenadin 0 Yes [id number] 180mg Take 1 [facility] e (LUIS 6-13 tablet by ity of ALLERGY) 00:00: mouth [place] 180 mg 00 daily. Medical tablet Branch fexofenadin 0 Yes [id number] 180mg Take 1 [facility] e (LUIS 6-13 tablet by ity of ALLERGY) 00:00: mouth [place] 180 mg 00 daily. Medical tablet Branch fexofenadin 0 Yes [id number] 180mg Take 1 [facility] e (LUIS 6-13 tablet by ity of ALLERGY) 00:00: mouth [place] 180 mg 00 daily. Medical tablet Branch fexofenadin 2021-0 Yes [id number] 180mg Take 1 [facility] e (LUIS 6-13 tablet by ity of ALLERGY) 00:00: mouth [place] 180 mg 00 daily. Medical tablet Branch fexofenadin 0 Yes [id number] 180mg Take 1 [facility] (LUIS 6-13 tablet by ity of ALLERGY) 00:00: mouth [place] 180 mg 00 daily. Medical tablet Branch fexofenadin 0 Yes [id number] 180mg Take 1 [facility] (LUIS 6-13 tablet by ity of ALLERGY) 00:00: mouth [place] 180 mg 00 daily. Medical tablet Branch fexofenadin 0 Yes [id number] 180mg Take 1 [facility] (LUIS 6-13 tablet by ity of ALLERGY) 00:00: mouth [place] 180 mg 00 daily. Medical tablet Branch fexofenadin 0 Yes [id number] 180mg Take 1 [facility] (LUIS 6-13 tablet by ity of ALLERGY) 00:00: mouth [place] 180 mg 00 daily. Medical tablet Branch fexofenadin 2021-0 Yes [id number] 180mg Take 1 [facility] (LUIS 6-13 tablet by ity of ALLERGY) 00:00: mouth [place] 180 mg 00 daily. Medical tablet Branch fexofenadin 2021-0 Yes [id number] 180mg Take 1 [facility] (LUIS 6-13 tablet by ity of ALLERGY) 00:00: mouth [place] 180 mg 00 daily. Medical tablet Branch fexofenadin 0 2022- No [id number] 180mg Take 1 [facility] (LUIS 6-13 01-24 tablet by ity of ALLERGY) 00:00: 00:00 mouth [place] 180 mg 00 :00 daily. Medical tablet Branch fexofenadin 2022022- No [id number] 180mg Take 1 [facility] (LUIS 03-08 tablet by ity of ALLERGY) 00:00: 00:00 mouth [place] 180 mg 00 :00 daily. Medical tablet Branch fexofenadin 2022- No [id number] 180mg Take 1 [facility] (LUIS 610-19 tablet by ity of ALLERGY) 00:00: 00:00 mouth [place] 180 mg 00 :00 daily. Medical tablet Branch fexofenadin 2022- No [id number] 180mg Take 1 [facility] (LUIS 03-08 tablet by ity of ALLERGY) 00:00: 00:00 mouth [place] 180 mg 00 :00 daily. Medical tablet Branch fexofenadin 2022- No [id number] 180mg Take 1 [facility] (LUIS 03-08 tablet by ity of ALLERGY) 00:00: 00:00 mouth [place] 180 mg 00 :00 daily. Medical tablet Branch rosuvastati Yes [id number] 10mg Take 1 [facility] n 10 mg 6-08 tablet by ity of tablet 00:00: mouth at [place] [address] bedtime. Medical Branch rosuvastati Yes [id number] 10mg Take 1 [facility] n 10 mg 6-08 tablet by ity of tablet 00:00: mouth at [place] [address] bedtime. Medical Branch rosuvastati Yes [id number] 10mg Take 1 [facility] n 10 mg 6-08 tablet by ity of tablet 00:00: mouth at [place] 00 bedtime. Medical Branch rosuvastati Yes [id number] 10mg Take 1 [facility] n 10 mg 6-08 tablet by ity of tablet 00:00: mouth at [place] 00 bedtime. Medical Branch rosuvastati Yes [id number] 10mg Take 1 [facility] n 10 mg 6-08 tablet by ity of tablet 00:00: mouth at [place] 00 bedtime. Medical Branch rosuvastati Yes [id number] 10mg Take 1 [facility] n 10 mg 6-08 tablet by ity of tablet 00:00: mouth at [place] 00 bedtime. Medical Branch rosuvastati Yes [id number] 10mg Take 1 [facility] n 10 mg 6-08 tablet by ity of tablet 00:00: mouth at [place] [address] bedtime. Medical Branch rosuvastati 2021-0 Yes [id number] 10mg Take 1 [facility] n 10 mg 6-08 tablet by ity of tablet 00:00: mouth at [place] [address] bedtime. Medical Branch rosuvastati 2021-0 Yes [id number] 10mg Take 1 [facility] n 10 mg 6-08 tablet by ity of tablet 00:00: mouth at [place] [address] bedtime. Medical Branch rosuvastati 2021-0 Yes [id number] 10mg Take 1 [facility] n 10 mg 6-08 tablet by ity of tablet 00:00: mouth at [place] [address] bedtime. Medical Branch rosuvastati 2021-0 Yes [id number] 10mg Take 1 [facility] n 10 mg 6-08 tablet by ity of tablet 00:00: mouth at [place] [address] bedtime. Medical Branch rosuvastati Yes [id number] 10mg Take 1 [facility] n 10 mg 6-08 tablet by ity of tablet 00:00: mouth at [place] [address] bedtime. Medical Branch rosuvastati 0 Yes [id number] 10mg Take 1 [facility] n 10 mg 6-08 tablet by ity of tablet 00:00: mouth at [place] [address] bedtime. Medical Branch rosuvastati 0 Yes [id number] 10mg Take 1 [facility] n 10 mg 6-08 tablet by ity of tablet 00:00: mouth at [place] [address] bedtime. Medical Branch rosuvastati Yes [id number] 10mg Take 1 [facility] n 10 mg 6-08 tablet by ity of tablet 00:00: mouth at [place] [address] bedtime. Medical Branch rosuvastati 2021-0 Yes [id number] 10mg Take 1 [facility] n 10 mg 6-08 tablet by ity of tablet 00:00: mouth at [place] [address] bedtime. Medical Branch rosuvastati 2021-0 Yes [id number] 10mg Take 1 [facility] n 10 mg 6-08 tablet by ity of tablet 00:00: mouth at [place] [address] bedtime. Medical Branch rosuvastati 2021-0 Yes [id number] 10mg Take 1 [facility] n 10 mg 6-08 tablet by ity of tablet 00:00: mouth at [place] [address] bedtime. Medical Branch rosuvastati 2021-0 Yes [id number] 10mg Take 1 [facility] n 10 mg 6-08 tablet by ity of tablet 00:00: mouth at [place] [address] bedtime. Medical Branch rosuvastati Yes [id number] 10mg Take 1 [facility] n 10 mg 6-08 tablet by ity of tablet 00:00: mouth at [place] bedtime. Medical Branch rosuvastati Yes [id number] 10mg Take 1 [facility] n 10 mg 6-08 tablet by ity of tablet 00:00: mouth at [place] [address] bedtime. Medical Branch rosuvastati Yes [id number] 10mg Take 1 [facility] n 10 mg 6-08 tablet by ity of tablet 00:00: mouth at [place] bedtime. Medical Branch rosuvastati Yes [id number] 10mg Take 1 [facility] n 10 mg 6-08 tablet by ity of tablet 00:00: mouth at [place] bedtime. Medical Branch rosuvastati Yes [id number] 10mg Take 1 [facility] n 10 mg 6-08 tablet by ity of tablet 00:00: mouth at [place] [address] bedtime. Medical Branch rosuvastati Yes [id number] 10mg Take 1 [facility] n 10 mg 6-08 tablet by ity of tablet 00:00: mouth at [place] [address] bedtime. Medical Branch rosuvastati Yes [id number] 10mg Take 1 [facility] n 10 mg 6-08 tablet by ity of tablet 00:00: mouth at [place] [address] bedtime. Medical Branch rosuvastati Yes [id number] 10mg Take 1 [facility] n 10 mg 6-08 tablet by ity of tablet 00:00: mouth at [place] [address] bedtime. Medical Branch rosuvastati 2021- Yes [id number] 10mg Take 1 [facility] n 10 mg 6-08 tablet by ity of tablet 00:00: mouth at [place] [address] bedtime. Medical Branch rosuvastati 2021-0 Yes [id number] 10mg Take 1 [facility] n 10 mg 6-08 tablet by ity of tablet 00:00: mouth at [place] [address] bedtime. Medical Branch rosuvastati 0 Yes [id number] 10mg Take 1 [facility] n 10 mg 6-08 tablet by ity of tablet 00:00: mouth at [place] [address] bedtime. Medical Branch rosuvastati 2021-0 Yes [id number] 10mg Take 1 [facility] n 10 mg 6-08 tablet by ity of tablet 00:00: mouth at [place] [address] bedtime. Medical Branch rosuvastati 2021- Yes [id number] 10mg Take 1 [facility] n 10 mg 6-08 tablet by ity of tablet 00:00: mouth at [place] bedtime. Medical Branch rosuvastati 2021- Yes [id number] 10mg Take 1 [facility] n 10 mg 6-08 tablet by ity of tablet 00:00: mouth at [place] bedtime. Medical Branch rosuvastati 2021-0 Yes [id number] 10mg Take 1 [facility] n 10 mg 6-08 tablet by ity of tablet 00:00: mouth at [place] bedtime. Medical Branch rosuvastati 2021-0 Yes [id number] 10mg Take 1 [facility] n 10 mg 6-08 tablet by ity of tablet 00:00: mouth at [place] bedtime. Medical Branch rosuvastati 2021- Yes [id number] 10mg Take 1 [facility] n 10 mg 6-08 tablet by ity of tablet 00:00: mouth at [place] [address] bedtime. Medical Branch rosuvastati Yes [id number] 10mg Take 1 [facility] n 10 mg 6-08 tablet by ity of tablet 00:00: mouth at [place] bedtime. Medical Branch rosuvastati Yes [id number] 10mg Take 1 [facility] n 10 mg 6-08 tablet by ity of tablet 00:00: mouth at [place] [address] bedtime. Medical Branch rosuvastati Yes [id number] 10mg Take 1 [facility] n 10 mg 6-08 tablet by ity of tablet 00:00: mouth at [place] [address] bedtime. Medical Branch rosuvastati 2021-0 Yes [id number] 10mg Take 1 [facility] n 10 mg 6-08 tablet by ity of tablet 00:00: mouth at [place] [address] bedtime. Medical Branch rosuvastati 2021-0 Yes [id number] 10mg Take 1 [facility] n 10 mg 6-08 tablet by ity of tablet 00:00: mouth at [place] [address] bedtime. Medical Branch rosuvastati 2021-0 Yes [id number] 10mg Take 1 [facility] n 10 mg 6-08 tablet by ity of tablet 00:00: mouth at [place] [address] bedtime. Medical Branch rosuvastati 2021-0 Yes [id number] 10mg Take 1 [facility] n 10 mg 6-08 tablet by ity of tablet 00:00: mouth at [place] 00 bedtime. [facility] rosuvastati Yes [id number] 10mg Take 1 [facility] n 10 mg 6-08 tablet by ity of tablet 00:00: mouth at [place] 00 bedtime. [facility] rosuvastati Yes [id number] 10mg Take 1 [facility] n 10 mg 6-08 tablet by ity of tablet 00:00: mouth at [place] 00 bedtime. [facility] rosuvastati 2021- No [id number] 10mg Take 1 [facility] n 10 mg 6-08 10-13 tablet by ity of tablet 00:00: 00:00 mouth at [place] 00 :00 bedtime. [facility] water for 2021- No PRN, Univers irrigation [...] 1000mL at 42 Unive rs ringers IV 03-02- mL/hr, ity of [...] at 0745, Routine, DSU Pre-op FOLIC ACID 2022-0 Yes Take by Univ ers ORAL 6-07 mouth ity of 11:23: daily. [place] [facility] [place] &[facility]/F 6-07 mouth. ity of ERROUS FUM 11:23: [place] (MULTI 09 Medical VITAMIN Branch ORAL) METHYLCELLU Yes [facility] [place] LOSE (FIBER 6-07 ity of THERAPY 11:23: [facility]) 09 Medical Branch DOCUSATE Yes Take [facility] [place] SODIUM 6-07 mouth. ity of (COLACE 11:23: [place] ORAL) 09 Medical Branch vitamin C Yes 1000mg Take 1,000 [facility] with derrell 6-07 mg by ity of hips 11:23: mouth [place] (VITAMIN C) 09 daily. Medica l 1,000 mg Branch tablet cholecalcif Yes 1000U Take 1,000 [facility] edmar, 6-07 Units by ity of vitamin D3, 11:23: mouth [place] (VITAMIN 09 daily. Medical D3) 1,000 Branch unit tablet CRANBERRY Yes Take by [facility] rs FRUIT 6-07 mouth ity of EXTRACT 11:23: daily. [place] (CRANBERRY Medical ORAL) Branch CALCIUM Yes Take by Univers ORAL 6-07 mouth ity of 11:23: daily. [place] [facility] DOCOSAHEXAN Yes 1000mg Take 1,000 [facility] OIC 6-07 mg by ity of ACID/EPA 11:23: mouth [place] (FISH OIL 09 daily. Medical ORAL) Branch BIOTIN ORAL Yes Take by Uni vers 6-07 mouth. ity of 11:23: [place] [address] Medical Branch FOLIC ACID Yes Take by [facility] [place] ers ORAL 6-07 mouth ity of 11:23: daily. [place] [address] Medical Branch MULTIVIT Yes [facility] [place] [place] &MIN[facility]/F 6-07 mouth. ity of ERROUS FUM 11:23: [place] (MULTI 09 Medical VITAMIN Branch ORAL) METHYLCELLU [facility] [place] [place] [facility] (FIBER 6-07 ity of THERAPY 11:23: [facility]) 09 Medical Branch DOCUSATE Yes Take by [facility] SODIUM 6-07 mouth. ity of (COLACE [...] 6-07 mouth ity of EXTRACT 11:23: daily. [place] (CRANBERRY Medical ORAL) Branch CALCIUM Yes Take by Univers ORAL 6-07 mouth ity of 11:23: daily. [place] [facility] Branch DOCOSAHEXAN Yes 1000mg Take 1,000 [facility] OIC 6-07 mg by ity of ACID/EPA 11:23: mouth [place] (FISH OIL 09 daily. Medical ORAL) Branch BIOTIN ORAL Yes Take by Uni vers 6-07 mouth. ity of 11:23: [place] [address] Medical Branch FOLIC ACID Yes Take by Univ ers ORAL 6-07 mouth ity of 11:23: daily. [place] [facility] MULTIVIT Yes [facility] [place] &MIN[facility]/F 6-07 mouth. ity of ERROUS FUM 11:23: [place] (MULTI 09 Medical VITAMIN Branch ORAL) METHYLCELLU Yes Univer s LOSE (FIBER 6-07 ity of THERAPY 11:23: [place] MISC) 09 Medical Branch DOCUSATE Yes [facility] [place] SODIUM 6-07 mouth. ity of (COLACE [...] unit tablet CRANBERRY 0 Yes Take by [facility] [place] [facility] FRUIT 6-07 mouth ity of EXTRACT 11:23: daily. [place] (CRANBERRY Medical ORAL) Branch CALCIUM 0 Yes Take by Univers ORAL 6-07 mouth ity of 11:23: daily. [place] [facility] Branch DOCOSAHEXAN Yes 1000mg Take 1,000 [facility] OIC 6-07 mg by ity of ACID/EPA 11:23: mouth [place] (FISH OIL 09 daily. Medical ORAL) Branch BIOTIN ORAL Yes Take by Uni vers 6-07 mouth. ity of 11:23: Medical Branch FOLIC ACID Yes Take by Univ ers ORAL 6-07 mouth ity of 11:23: daily. [place] [facility] Branch MULTIVIT Yes Take by Univer s &MINERALS/F 6-07 mouth. ity of ERROUS FUM 11:23: [place] (MULTI 09 Medical VITAMIN Branch ORAL) METHYLCELLU Yes [facility] s LOSE (FIBER 6-07 ity of THERAPY 11:23: [place] MISC) 09 Medical Branch DOCUSATE Yes Take by [facility] s SODIUM 6-07 mouth. ity of (COLACE 11:23: [place] ORAL) 09 Medical Branch vitamin C Yes 1000mg Take 1,000 [facility] with derrell 6-07 mg by ity of hips 11:23: mouth [place] (VITAMIN C) 09 daily. Medica l 1,000 mg Branch tablet cholecalcif Yes 1000U Take 1,000 [facility] edmar, 6-07 Units by ity of vitamin D3, 11:23: mouth [place] (VITAMIN 09 daily. Medical D3) 1,000 Branch unit tablet CRANBERRY Yes Take by [facility] rs FRUIT 6-07 mouth ity of EXTRACT 11:23: daily. [place] (CRANBERRY Medical ORAL) Branch CALCIUM Yes Take by Univers ORAL 6-07 mouth ity of 11:23: daily. [place] [facility] Branch DOCOSAHEXAN Yes 1000mg Take 1,000 [facility] OIC 6-07 mg by ity of ACID/EPA 11:23: mouth [place] (FISH OIL 09 daily. Medical ORAL) Branch BIOTIN ORAL Yes Take by Uni vers 6-07 mouth. ity of 11:23: Medical Branch FOLIC ACID Yes Take by Univ ers ORAL 6-07 mouth ity of 11:23: daily. [place] [facility] MULTIVIT Yes Take by Univer s &MINERALS/F 6-07 mouth. ity of ERROUS FUM 11:23: [place] (MULTI 09 Medical VITAMIN Branch ORAL) METHYLCELLU 0 Yes [facility] [place] 6-07 ity of THERAPY 11:23: [facility]) 09 Medical Branch DOCUSATE Yes Take [facility] [place] SODIUM 6-07 mouth. ity of (COLACE 11:23: [place] ORAL) 09 Medical Branch vitamin C Yes 1000mg Take 1,000 [facility] with derrell 6-07 mg by ity of hips 11:23: mouth [place] (VITAMIN C) 09 daily. Medica l 1,000 mg Branch tablet cholecalcif Yes 1000U Take 1,000 [facility] edmar, 6-07 Units by ity of vitamin D3, 11:23: mouth [place] (VITAMIN 09 daily. Medical D3) 1,000 Branch unit tablet CRANBERRY Yes Take by [facility] rs FRUIT 6-07 mouth ity of EXTRACT 11:23: daily. [place] (CRANBERRY 09 Medical ORAL) Branch CALCIUM Yes Take by Univers ORAL 6-07 mouth ity of 11:23: daily. [place] [facility] Branch DOCOSAHEXAN Yes 1000mg Take 1,000 [facility] OIC 6-07 mg by ity of ACID/EPA 11:23: mouth [place] (FISH OIL 09 daily. Medical ORAL) Branch BIOTIN ORAL Yes Take by Uni vers 6-07 mouth. ity of 11:23: [place] [address] Medical Branch FOLIC ACID Yes Take by Univ ers ORAL 6-07 mouth ity of 11:23: daily. [place] [address] Medical Branch MULTIVIT Yes [facility] [place] &[facility]/F 6-07 mouth. ity of ERROUS FUM 11:23: [place] (MULTI 09 Medical VITAMIN Branch ORAL) METHYLCELLU 0 Yes [facility] [place] (FIBER 6-07 ity of THERAPY 11:23: [facility]) 09 Medical Branch DOCUSATE 0 Yes Take by [facility] s SODIUM 6-07 mouth. ity of (COLACE 11:23: [place] ORAL) 09 Medical Branch vitamin C Yes 1000mg Take 1,000 [facility] with derrell 6-07 mg by ity of hips 11:23: mouth [place] (VITAMIN C) 09 daily. Medica l 1,000 mg Branch tablet cholecalcif 0 Yes 1000U Take 1,000 [facility] edmar, 6-07 Units by ity of vitamin D3, 11:23: mouth [place] (VITAMIN 09 daily. Medical D3) 1,000 Branch unit tablet CRANBERRY 0 Yes Take [place] [facility] [place] FRUIT 6-07 mouth ity of EXTRACT 11:23: daily. [place] (CRANBERRY Medical ORAL) Branch CALCIUM Yes Take by Univers ORAL 6-07 mouth ity of 11:23: daily. [place] [facility] DOCOSAHEXAN Yes 1000mg Take 1,000 [facility] OIC 6-07 mg by ity of ACID/EPA 11:23: mouth [place] (FISH OIL 09 daily. Medical ORAL) Branch BIOTIN ORAL Yes Take by Uni vers 6-07 mouth. ity of 11:23: Medical Branch FOLIC ACID Yes Take by Univ ers ORAL 6-07 mouth ity of 11:23: daily. [place] [facility] MULTIVIT Yes [facility] [place] &MINERALS/F 6-07 mouth. ity of ERROUS FUM 11:23: [place] (MULTI 09 Medical VITAMIN Branch ORAL) METHYLCELLU Yes [facility] [place] LOSE (FIBER 6-07 ity of THERAPY 11:23: [place] MISC) 09 Medical Branch DOCUSATE Yes Take by [facility] [place] SODIUM 6-07 mouth. ity of (COLACE 11:23: [place] ORAL) 09 Medical Branch vitamin C Yes 1000mg Take 1,000 [facility] with derrell 6-07 mg by ity of hips 11:23: mouth [place] (VITAMIN C) 09 daily. Medica l 1,000 mg Branch tablet cholecalcif 0 Yes 1000U Take 1,000 [facility] edmar, 6-07 Units by ity of vitamin D3, 11:23: mouth [place] (VITAMIN 09 daily. Medical D3) 1,000 Branch unit tablet CRANBERRY 2021-0 Yes Take [place] [facility] [place] FRUIT 6-07 mouth ity of EXTRACT 11:23: daily. [place] (CRANBERRY 09 Medical ORAL) Branch CALCIUM Yes Take by Univers ORAL 6-07 mouth ity of 11:23: daily. [place] [facility] Branch DOCOSAHEXAN 0 Yes 1000mg Take 1,000 [facility] OIC 6-07 mg by ity of ACID/EPA 11:23: mouth [place] (FISH OIL 09 daily. Medical ORAL) Branch BIOTIN ORAL Yes Take by Uni vers 6-07 mouth. ity of 11:23: Medical Branch FOLIC ACID Yes Take by Univ ers ORAL 6-07 mouth ity of 11:23: daily. [place] [facility] MULTIVIT Yes Take by Univer s &MINERALS/F 6-07 mouth. ity of ERROUS FUM 11:23: [place] (MULTI 09 Medical VITAMIN Branch ORAL) METHYLCELLU [facility] [place] (FIBER 6-07 ity of THERAPY 11:23: [place] MISC) Medical Branch DOCUSATE Yes Take [facility] [place] SODIUM 6-07 mouth. ity of (COLACE 11:23: [place] ORAL) 09 Medical Branch vitamin C Yes 1000mg Take 1,000 [facility] with derrell 6-07 mg by ity of hips 11:23: mouth [place] (VITAMIN C) 09 daily. Medica l 1,000 mg Branch tablet cholecalcif Yes 1000U Take 1,000 [facility] edmar, 6-07 Units by ity of vitamin D3, 11:23: mouth [place] (VITAMIN 09 daily. Medical D3) 1,000 Branch unit tablet CRANBERRY Yes Take by Unive rs FRUIT 6-07 mouth ity of EXTRACT 11:23: daily. [place] (CRANBERRY Medical ORAL) Branch CALCIUM Yes Take by Univers ORAL 6-07 mouth ity of 11:23: daily. [place] Medical Branch DOCOSAHEXAN Yes 1000mg Take 1,000 [facility] OIC 6-07 mg by ity of ACID/EPA 11:23: mouth [place] (FISH OIL 09 daily. Medical ORAL) Branch BIOTIN ORAL Yes Take by Uni vers 6-07 mouth. ity of 11:23: [place] Medical [facility] FOLIC ACID 0 Yes Take by Univ ers ORAL 6-07 mouth ity of 11:23: daily. [place] [address] Medical Branch MULTIVIT Yes Take by Univer s &MINERALS/F 6-07 mouth. ity of ERROUS FUM 11:23: [place] (MULTI 09 Medical VITAMIN Branch ORAL) METHYLCELLU 2022-0 Yes Univer s LOSE (FIBER 6-07 ity of THERAPY 11:23: [facility]) 09 Medical Branch DOCUSATE Yes Take [...] CRANBERRY Yes Take by [facility] rs FRUIT 6-07 mouth ity of EXTRACT 11:23: daily. [place] (CRANBERRY 09 Medical ORAL) Branch CALCIUM Yes Take by [facility] ORAL 6-07 mouth ity of 11:23: daily. [place] [facility] Branch DOCOSAHEXAN Yes 1000mg Take 1,000 [facility] OIC 6-07 mg by ity of ACID/EPA 11:23: mouth [place] (FISH OIL 09 daily. Medical ORAL) Branch BIOTIN ORAL Yes Take by Uni vers 6-07 mouth. ity of 11:23: [place] [address] Medical Branch FOLIC ACID Yes Take by Univ ers ORAL 6-07 mouth ity of 11:23: daily. [place] [facility] MULTIVIT Yes [facility] [place] &MIN[facility]ALS/F 6-07 mouth. ity of ERROUS FUM 11:23: [place] (MULTI 09 Medical VITAMIN Branch ORAL) METHYLCELLU 0 Yes Univer s LOSE (FIBER 6-07 ity of THERAPY 11:23: [facility]) 09 Medical Branch DOCUSATE Yes [facility] [place] SODIUM 6-07 mouth. ity of (COLACE 11:23: [place] ORAL) 09 Medical Branch vitamin C Yes [...] 6-07 mouth ity of EXTRACT 11:23: daily. [place] (CRANBERRY Medical ORAL) Branch CALCIUM Yes Take by Univers ORAL 6-07 mouth ity of 11:23: daily. [place] [facility] DOCOSAHEXAN Yes 1000mg Take 1,000 [facility] OIC 6-07 mg by ity of ACID/EPA 11:23: mouth [place] (FISH OIL 09 daily. Medical ORAL) Branch BIOTIN ORAL Yes Take by Uni vers 6-07 mouth. ity of 11:23: [place] [facility] FOLIC ACID Yes Take by Univ ers ORAL 6-07 mouth ity of 11:23: daily. [place] [facility] MULTIVIT Yes Take by Univer s &MINERALS/F 6-07 mouth. ity of ERROUS FUM 11:23: [place] (MULTI 09 Medical VITAMIN Branch ORAL) METHYLCELLU Yes Univer s LOSE (FIBER 6-07 ity of THERAPY 11:23: [place] MISC) Medical Branch DOCUSATE Yes Take by Univer s SODIUM 6-07 mouth. ity of (COLACE 11:23: [place] ORAL) Medical Branch vitamin C Yes 1000mg Take 1,000 [facility] with derrell 6-07 mg by ity of hips 11:23: mouth [place] (VITAMIN C) 09 daily. Medica l 1,000 mg Branch tablet cholecalcif Yes 1000U Take 1,000 [facility] edmar, 6-07 Units by ity of vitamin D3, 11:23: mouth [place] (VITAMIN 09 daily. Medical D3) 1,000 Branch unit tablet CRAN[place]ERRY Yes Take [place] [facility] [place] FR[facility] 6-07 mouth ity of EXTRACT 11:23: daily. [place] (CRANBERRY Medical ORAL) Branch CALCIUM Yes Take by Univers ORAL 6-07 mouth ity of 11:23: daily. [place] [facility] DOCOSAHEXAN Yes 1000mg Take 1,000 [facility] OIC 6-07 mg by ity of ACID/EPA 11:23: mouth [place] (FISH OIL 09 daily. Medical ORAL) Branch BIOTIN ORAL Yes Take by Uni vers 6-07 mouth. ity of 11:23: Medical Branch FOLIC ACID Yes Take by Univ ers ORAL 6-07 mouth ity of 11:23: daily. [place] [facility] MULTIVIT Yes Take by Univer s &MINERALS/F 6-07 mouth. ity of ERROUS FUM 11:23: [place] (MULTI 09 Medical VITAMIN Branch ORAL) METHYLCELLU 0 Yes Univer s LOSE (FIBER 6-07 ity of THERAPY 11:23: [facility]) 09 Medical Branch DOCUSATE Yes Take by Univer s SODIUM 6-07 mouth. ity of (COLACE 11:23: [place] ORAL) 09 Medical Branch vitamin C Yes 1000mg Take 1,000 Univers with derrell 6-07 mg by ity of hips 11:23: mouth [place] (VITAMIN C) 09 daily. Medica l 1,000 mg Branch tablet cholecalcif Yes 1000U Take 1,000 [facility] edmar, 6-07 Units by ity of vitamin D3, 11:23: mouth [place] (VITAMIN 09 daily. Medical D3) 1,000 Branch unit tablet CRANBERRY Yes Take by Unive rs FRUIT 6-07 mouth ity of EXTRACT 11:23: daily. [place] (CRANBERRY Medical ORAL) Branch CALCIUM Yes Take by Univers ORAL 6-07 mouth ity of 11:23: daily. [place] [facility] Branch DOCOSAHEXAN Yes 1000mg Take 1,000 Univers OIC 6-07 mg by ity of ACID/EPA 11:23: mouth [place] (FISH OIL 09 daily. Medical ORAL) Branch BIOTIN ORAL Yes Take by Uni vers 6-07 mouth. ity of 11:23: Medical Branch FOLIC ACID Yes Take by Univ ers ORAL 6-07 mouth ity of 11:23: daily. [place] [facility] MULTIVIT 0 Yes Take by Univer s &MINERALS/F 6-07 mouth. ity of ERROUS FUM 11:23: [place] (MULTI 09 Medical VITAMIN Branch ORAL) METHYLCELLU 0 Yes Univer s LOSE (FIBER 6-07 ity of THERAPY 11:23: [facility]) 09 Medical Branch DOCUSATE 2022-0 Yes Take by [facility] s SODIUM 6-07 mouth. ity [...] CRANBERRY Yes Take by [facility] rs FRUIT 6-07 mouth ity of EXTRACT 11:23: daily. [place] (CRANBERRY Medical ORAL) Branch CALCIUM Yes Take by [facility] ORAL 6-07 mouth ity of 11:23: daily. [place] [facility] Branch DOCOSAHEXAN Yes 1000mg Take 1,000 Univers OIC 6-07 mg by ity of ACID/EPA 11:23: mouth [place] (FISH OIL 09 daily. Medical ORAL) Branch BIOTIN ORAL Yes Take by Uni vers 6-07 mouth. ity of 11:23: [place] [address] Medical Branch FOLIC ACID Yes Take by Univ ers ORAL 6-07 mouth ity of 11:23: daily. [place] 09 Medical Branch MULTIVIT [facility] [place] &[facility]/F 6-07 mouth. ity of ERROUS FUM 11:23: [place] (MULTI 09 Medical VITAMIN Branch ORAL) METHYLCELLU [address] [facility] s LOSE (FIBER 6-07 ity of THERAPY 11:23: [place] MISC) 09 Medical Branch DOCUSATE Yes Take by [facility] s SODIUM 6-07 mouth. ity [...] 6-07 mouth ity of EXTRACT 11:23: daily. [place] (CRANBERRY Medical ORAL) Branch CALCIUM Yes Take by Univers ORAL 6-07 mouth ity of 11:23: daily. [place] [facility] DOCOSAHEXAN Yes 1000mg Take 1,000 [facility] OIC 6-07 mg by ity of ACID/EPA 11:23: mouth [place] (FISH OIL 09 daily. Medical ORAL) Branch BIOTIN ORAL Yes Take by Uni vers 6-07 mouth. ity of 11:23: [place] [address] Medical Branch FOLIC ACID Yes Take by Univ ers ORAL 6-07 mouth ity of 11:23: daily. [place] [facility] MULTIVIT Yes Take by Univer s &MINERALS/F 6-07 mouth. ity of ERROUS FUM 11:23: [place] (MULTI 09 Medical VITAMIN Branch ORAL) METHYLCELLU Yes Univer s LOSE (FIBER 6-07 ity of THERAPY 11:23: [place] MISC) Medical Branch DOCUSATE Yes Take by Univer s SODIUM 6-07 mouth. ity of (COLACE 11:23: [place] ORAL) Medical Branch vitamin C Yes 1000mg Take 1,000 [facility] with derrell 6-07 mg by ity of hips 11:23: mouth [place] (VITAMIN C) 09 daily. Medica l 1,000 mg Branch tablet cholecalcif Yes 1000U Take 1,000 [facility] edmar, 6-07 Units by ity of vitamin D3, 11:23: mouth [place] (VITAMIN 09 daily. Medical D3) 1,000 Branch unit tablet CRANBERRY Yes Take by Unive rs FRUIT 6-07 mouth ity of EXTRACT 11:23: daily. [place] (CRANBERRY Medical ORAL) Branch CALCIUM Yes Take by [facility] ORAL 6-07 mouth ity of 11:23: daily. [place] [facility] DOCOSAHEXAN Yes 1000mg Take 1,000 [facility] OIC 6-07 mg by ity of ACID/EPA 11:23: mouth [place] (FISH OIL 09 daily. Medical ORAL) Branch BIOTIN ORAL Yes Take by [facility] vers 6-07 mouth. ity of 11:23: [place] [address] Medical Branch FOLIC ACID Yes Take by Univ ers ORAL 6-07 mouth ity of 11:23: daily. [place] [address] Medical Branch MULTIVIT Yes Take by Un[facility] s &MINERALS/F 6-07 mouth. ity of ERROUS FUM 11:23: [place] (MULTI 09 Medical VITAMIN Branch ORAL) METHYLCELLU Yes Univer s LOSE (FIBER 6-07 ity of THERAPY 11:23: [facility]) 09 Medical Branch DOCUSATE Yes Take [...] by ity of vitamin D3, 11:23: mouth [place] (VITAMIN 09 daily. Medical D3) 1,000 Branch unit tablet [place]ERRY Yes [facility] [place] [facility] [place] FRUIT 6-07 mouth ity of EXTRACT 11:23: daily. [place] (CRANBERRY 09 Medical ORAL) Branch CALCIUM Yes Take by [facility] ORAL 6-07 mouth ity of 11:23: daily. [place] [address] Medical Branch DOCOSAHEXAN Yes 1000mg Take 1,000 [facility] OIC 6-07 mg by ity of ACID/EPA 11:23: mouth [place] (FISH OIL 09 daily. Medical ORAL) Branch BIOTIN ORAL Yes Take by [facility] vers 6-07 mouth. ity of 11:23: [place] [address] Medical Branch FOLIC ACID Yes Take by Univ ers ORAL 6-07 mouth ity of 11:23: daily. [place] [address] Medical Branch MULTIVIT Yes Take by Un[facility] s &MINERALS/F 6-07 mouth. ity of ERROUS FUM 11:23: [place] (MULTI 09 Medical VITAMIN Branch ORAL) METHYLCELLU Yes Univer s LOSE (FIBER 6-07 ity of THERAPY 11:23: [place] MIS) 09 Medical Branch DOCUSATE Yes Take by [facility] s SODIUM 6-07 mouth. ity [...] 6-07 mouth ity of EXTRACT 11:23: daily. [place] (CRANBERRY Medical ORAL) Branch CALCIUM Yes Take by Univers ORAL 6-07 mouth ity of 11:23: daily. [place] [facility] DOCOSAHEXAN Yes 1000mg Take 1,000 [facility] OIC 6-07 mg by ity of ACID/EPA 11:23: mouth [place] (FISH OIL 09 daily. Medical ORAL) Branch BIOTIN ORAL Yes Take by Uni vers 6-07 mouth. ity of 11:23: Medical Branch FOLIC ACID Yes Take by Univ ers ORAL 6-07 mouth ity of 11:23: daily. [place] [facility] MULTIVIT Yes Take by [facility] s &MINERALS/F 6-07 mouth. ity of ERROUS FUM 11:23: [place] (MULTI 09 Medical VITAMIN Branch ORAL) METHYLCELLU Yes Univer s LOSE (FIBER 6-07 ity of THERAPY 11:23: [place] MISC) 09 Medical Branch DOCUSATE Yes Take [...] 6-07 mouth ity of EXTRACT 11:23: daily. [place] (CRANBERRY 09 Medical ORAL) Branch CALCIUM Yes [...] 6-07 mouth. ity of ERROUS FUM 11:23: [place] (MULTI 09 Medical VITAMIN Branch ORAL) [facility] [place] of THERAPY 11:23: [place] MISC) 09 Medical Branch DOCUSATE Yes [facility] [place] SODI[facility] 6-07 mouth. ity of (COLACE [...] tablet CRANBERRY Yes Take by [facility] [place] FRUIT 6-07 mouth ity of EXTRACT 11:23: daily. [place] (CRANBERRY Medical ORAL) Branch CALCIUM Yes Take [...] LOSE (FIBER 6-07 ity of THERAPY 11:23: [facility]) Medical Branch DOCUSATE Yes Take by [...] by ity of vitamin D3, 11:23: mouth [place] (VITAMIN 09 daily. Medical D3) 1,000 Branch unit tablet CRANBERRY Yes Take [place] [facility] [place] FRUIT 6-07 mouth ity of EXTRACT 11:23: daily. [place] (CRAN[place]Y Medical ORAL) Branch CALCIUM Yes Take by Univers ORAL 6-07 mouth ity of 11:23: daily. [place] [facility] DOCOSAHEXAN Yes 1000mg Take 1,000 [facility] OIC 6-07 mg by ity of ACID/EPA 11:23: mouth [place] (FISH OIL 09 daily. Medical ORAL) Branch BIOTIN ORAL Yes Take by Uni vers 6-07 mouth. ity of 11:23: [place] [address] Medical Branch FOLIC ACID Yes Take by Univ ers ORAL 6-07 mouth ity of 11:23: daily. [place] [address] Medical Branch MULTIVIT Yes Take by [facility]iver [facility] &MINERALS/F 6-07 mouth. ity of ERROUS FUM 11:23: [place] (MULTI 09 Medical VITAMIN Branch ORAL) METHYLCELLU 0 Yes Univer s LOSE (FIBER 6-07 ity of THERAPY 11:23: [facility]) 09 Medical Branch DOCUSATE Yes Take [...] by ity of vitamin D3, 11:23: mouth [place] (VITAMIN 09 daily. Medical D3) 1,000 Branch unit tablet CRANBERRY 0 Yes Take [place] [facility] [place] FRUIT 6-07 mouth ity of EXTRACT 11:23: daily. [place] (CRAN[place]Y Medical ORAL) Branch CALCIUM Yes Take by [facility] ORAL 6-07 mouth ity of 11:23: daily. [place] [facility] DOCOSAHEXAN Yes 1000mg Take 1,000 [facility] OIC 6-07 mg by ity of ACID/EPA 11:23: mouth [place] (FISH OIL 09 daily. Medical ORAL) Branch BIOTIN ORAL Yes Take by [facility] vers 6-07 mouth. ity of 11:23: [place] [facility] FOLIC ACID Yes Take by Univ ers ORAL 6-07 mouth ity of 11:23: daily. [place] [facility] MULTIVIT [facility] [place] &MIN[facility]/F 6-07 mouth. ity of ERROUS FUM 11:23: [place] (MULTI 09 Medical VITAMIN Branch ORAL) METHYLCELLU 0 Yes [facility] [place] 6-07 ity of THERAPY 11:23: [place] MISC) 09 Medical Branch DOCUSATE Yes [facility] [place] SODIUM 6-07 mouth. ity of (COLACE 11:23: [place] ORAL) 09 Medical Branch vitamin C Yes 1000mg Take 1,000 [facility] with derrell 6-07 mg by ity of hips 11:23: mouth [place] (VITAMIN C) 09 daily. Medica l 1,000 mg Branch tablet cholecalcif 0 Yes 1000U Take 1,000 [facility] edmar, 6-07 Units by ity of vitamin D3, 11:23: mouth [place] (VITAMIN 09 daily. Medical D3) 1,000 Branch unit tablet CRANBERRY 2021-0 Yes Take by [facility] [place] FRUIT 6-07 mouth ity of EXTRACT 11:23: daily. [place] (CRANBERRY Medical ORAL) Branch CALCIUM 0 Yes Take by Univers ORAL 6-07 mouth ity of 11:23: daily. [place] [facility] DOCOSAHEXAN 2022-0 Yes 1000mg Take 1,000 [facility] OIC 6-07 mg by ity of ACID/EPA 11:23: mouth [place] (FISH OIL 09 daily. Medical ORAL) Branch BIOTIN ORAL Yes Take by Uni vers 6-07 mouth. ity of 11:23: Medical Branch FOLIC ACID Yes Take by Univ ers ORAL 6-07 mouth ity of 11:23: daily. [place] [facility] MULTIVIT Yes Take by Univer s &MINERALS/F 6-07 mouth. ity of ERROUS FUM 11:23: [place] (MULTI 09 Medical VITAMIN Branch ORAL) M[facility]YLCELLU [facility] [place]IBER 6-07 ity of THERAPY 11:23: [place] MISC) 09 Medical Branch DOCUSATE Yes Take [facility] [place] SODIUM 6-07 mouth. ity of (COLACE 11:23: [place] ORAL) 09 Medical Branch vitamin C Yes 1000mg Take 1,000 [facility] with derrell 6-07 mg by ity of hips 11:23: mouth [place] (VITAMIN C) 09 daily. Medica l 1,000 mg Branch tablet cholecalcif Yes 1000U Take 1,000 [facility] edmar, 6-07 Units by ity of vitamin D3, 11:23: mouth [place] (VITAMIN 09 daily. Medical D3) 1,000 Branch unit tablet CRANBERRY Yes Take by Unive rs FRUIT 6-07 mouth ity of EXTRACT 11:23: daily. [place] (CRANBERRY Medical ORAL) Branch CALCIUM Yes Take by Univers ORAL 6-07 mouth ity of 11:23: daily. [place] [facility] DOCOSAHEXAN Yes 1000mg Take 1,000 [facility] OIC 6-07 mg by ity of ACID/EPA 11:23: mouth [place] (FISH OIL 09 daily. Medical ORAL) Branch BIOTIN ORAL Yes Take by Uni vers 6-07 mouth. ity of 11:23: Medical Branch FOLIC ACID 0 Yes Take by Univ ers ORAL 6-07 mouth ity of 11:23: daily. [place] [facility] MULTIVIT Yes Take by Univer s &MINERALS/F 6-07 mouth. ity of ERROUS FUM 11:23: [place] (MULTI 09 Medical VITAMIN Branch ORAL) METHYLCELLU 2022-0 Yes [facility] [place] 6-07 ity of THERAPY 11:23: [facility]) 09 Medical Branch DOCUSATE Yes Take by [facility] [place] SODIUM 6-07 mouth. ity of (COLACE [...] CRANBERRY Yes Take by [facility] rs FRUIT 6-07 mouth ity of EXTRACT 11:23: daily. [place] (CRANBERRY Medical ORAL) Branch CALCIUM Yes Take by [facility] ORAL 6-07 mouth ity of 11:23: daily. [place] [facility] DOCOSAHEXAN Yes 1000mg Take 1,000 [facility] OIC 6-07 mg by ity of ACID/EPA 11:23: mouth [place] (FISH OIL 09 daily. Medical ORAL) Branch BIOTIN ORAL Yes Take by Uni vers 6-07 mouth. ity of 11:23: [place] [facility] FOLIC ACID Yes Take by Univ ers ORAL 6-07 mouth ity of 11:23: daily. [place] [facility] MULTIVIT Yes [facility] [place] &MINERALS/F 6-07 mouth. ity of ERROUS FUM 11:23: [place] (MULTI 09 Medical VITAMIN Branch ORAL) METHYLCELLU Yes Univer s LOSE (FIBER 6-07 ity of THERAPY 11:23: [facility]) 09 Medical Branch DOCUSATE Yes Take [facility] [place] SODIUM 6-07 mouth. ity of (COLACE [...] 6-07 mouth ity of EXTRACT 11:23: daily. [place] (CRANBERRY 09 Medical ORAL) Branch CALCIUM Yes Take by Univers ORAL 6-07 mouth ity of 11:23: daily. [place] [facility] DOCOSAHEXAN Yes 1000mg Take 1,000 [facility] OIC 6-07 mg by ity of ACID/EPA 11:23: mouth [place] (FISH OIL 09 daily. Medical ORAL) Branch BIOTIN ORAL Yes Take by Uni vers 6-07 mouth. ity of 11:23: Medical Branch FOLIC ACID Yes Take by Univ ers ORAL 6-07 mouth ity of 11:23: daily. [place] [facility] MULTIVIT Yes Take by Univer s &MINERALS/F 6-07 mouth. ity of ERROUS FUM 11:23: [place] (MULTI 09 Medical VITAMIN Branch ORAL) METHYLCELLU Yes Univer s LOSE (FIBER 6-07 ity of THERAPY 11:23: [place] MISC) 09 Medical Branch DOCUSATE Yes [facility] [place] SODIUM 6-07 mouth. ity of (COLACE 11:23: [place] ORAL) 09 Medical Branch vitamin C Yes 1000mg Take 1,000 [facility] with derrell 6-07 mg by ity of hips 11:23: mouth [place] (VITAMIN C) 09 daily. Medica l 1,000 mg Branch tablet cholecalcif Yes 1000U Take 1,000 [facility] edmar, 6-07 Units by ity of vitamin D3, 11:23: mouth [place] (VITAMIN 09 daily. Medical D3) 1,000 Branch unit tablet CRANBERRY Yes Take by [facility] [place] FRUIT 6-07 mouth ity of EXTRACT 11:23: daily. [place] (CRANBERRY 09 Medical ORAL) Branch CALCIUM Yes Take by Univer s ORAL 6-07 mouth ity of 11:23: daily. [place] [facility] DOCOSAHEXAN Yes 1000mg Take 1,000 [...] 6-07 mouth. ity of ERROUS FUM 11:23: [place] (MULTI 09 Medical VITAMIN Branch ORAL) METHYLCELLU 0 Yes Univer s LOSE (FIBER 6-07 ity of THERAPY 11:23: [facility]) 09 Medical Branch DOCUSATE Yes Take by Univer s SODIUM 6-07 mouth. ity of (COLACE 11:23: [place] ORAL) 09 Medical Branch vitamin C Yes [...] 6-07 mouth ity of EXTRACT 11:23: daily. [place] (CRANBERRY 09 Medical ORAL) Branch CALCIUM Yes Take by Univers ORAL 6-07 mouth ity of 11:23: daily. Medical Branch DOCOSAHEXAN Yes 1000mg Take 1,000 [facility] OIC 6-07 mg by ity of ACID/EPA 11:23: mouth [place] (FISH OIL 09 daily. Medical ORAL) Branch BIOTIN ORAL Yes Take by Uni vers 6-07 mouth. ity of 11:23: Medical Branch FOLIC ACID 0 Yes Take by Univ ers ORAL 6-07 mouth ity of 11:23: daily. [place] [facility] MULTIVIT 0 Yes Take by Univer s &MINERALS/F 6-07 mouth. ity of ERROUS FUM 11:23: [place] (MULTI 09 Medical VITAMIN Branch ORAL) METHYLCELLU 0 Yes Univer s LOSE (FIBER 6-07 ity of THERAPY 11:23: [facility]) 09 Medical Branch DOCUSATE Yes Take [...] 6-07 mouth ity of EXTRACT 11:23: daily. [place] (CRANBERRY 09 Medical ORAL) Branch CALCIUM Yes Take by Univers ORAL 6-07 mouth ity of 11:23: daily. [place] [facility] DOCOSAHEXAN Yes 1000mg Take 1,000 [facility] OIC 6-07 mg by ity of ACID/EPA 11:23: mouth [place] (FISH OIL 09 daily. Medical ORAL) Branch BIOTIN ORAL Yes Take by Uni vers 6-07 mouth. ity of 11:23: [place] [address] Medical Branch FOLIC ACID Yes Take by Univ ers ORAL 6-07 mouth ity of 11:23: daily. [place] [address] Medical Branch MULTIVIT Yes Take by Univer s &MINERALS/F 6-07 mouth. ity of ERROUS FUM 11:23: [place] (MULTI 09 Medical VITAMIN Branch ORAL) METHYLCELLU Yes Univer s LOSE (FIBER 6-07 ity of THERAPY 11:23: [facility]) 09 Medical Branch DOCUSATE Yes Take by Unive rs SODIUM 6-07 mouth. ity of (COLACE 11:23: [place] ORAL) 09 Medical Branch vitamin C Yes 1000mg Take 1,000 [facility] with derrell 6-07 mg by ity of hips 11:23: mouth [place] (VITAMIN C) 09 daily. Medica l 1,000 mg Branch tablet cholecalcif Yes 1000U Take 1,000 [facility] edmar, 6-07 Units by ity of vitamin D3, 11:23: mouth [place] (VITAMIN 09 daily. Medical D3) 1,000 Branch unit tablet CRANBERRY Yes Take by [facility] [place] FRUIT 6-07 mouth ity of EXTRACT 11:23: daily. [place] (CRANBERRY Medical ORAL) Branch CALCIUM Yes Take by Univers ORAL 6-07 mouth ity of 11:23: daily. [place] [facility] DOCOSAHEXAN Yes 1000mg Take 1,000 [facility] OIC 6-07 mg by ity of ACID/EPA 11:23: mouth [place] (FISH OIL 09 daily. Medical ORAL) Branch BIOTIN ORAL Yes Take by Uni vers 6-07 mouth. ity of 11:23: [place] [facility] FOLIC ACID Yes Take by [facility] [place] ers ORAL 6-07 mouth ity of 11:23: daily. [place] [facility] MULTIVIT Yes Take [facility] [place] &MINERALS/F 6-07 mouth. ity of ERROUS FUM 11:23: [place] (MULTI 09 Medical VITAMIN Branch ORAL) METHYLCELLU Yes [facility] s LOSE (FIBER 6-07 ity of THERAPY 11:23: [place] MISC) Medical Branch DOCUSATE Yes [facility] [place] SODIUM 6-07 mouth. ity of (COLACE 11:23: [place] ORAL) 09 Medical Branch vitamin C Yes 1000mg Take 1,000 [facility] with derrell 6-07 mg by ity of hips 11:23: mouth [place] (VITAMIN C) 09 daily. Medica l 1,000 mg Branch tablet cholecalcif Yes 1000U Take 1,000 [facility] edmar, 6-07 Units by ity of vitamin D3, 11:23: mouth [place] (VITAMIN 09 daily. Medical D3) 1,000 Branch unit tablet CRANBERRY Yes Take by [facility] [place] ers FRUIT 6-07 mouth ity of EXTRACT 11:23: daily. [place] (CRANBERRY Medical ORAL) Branch CALCIUM Yes Take by Univers ORAL 6-07 mouth ity of 11:23: daily. [place] [facility] DOCOSAHEXAN Yes 1000mg Take 1,000 [facility] OIC 6-07 mg by ity of ACID/EPA 11:23: mouth [place] (FISH OIL 09 daily. Medical ORAL) Branch BIOTIN ORAL Yes Take by Uni vers 6-07 mouth. ity of 11:23: [place] [address] Medical Branch FOLIC ACID Yes Take by Univ ers ORAL 6-07 mouth ity of 11:23: daily. [place] [address] Medical Branch MULTIVIT Yes Take by Univer s &MINERALS/F 6-07 mouth. ity of ERROUS FUM 11:23: [place] ([place] [address] Medical VITAMIN Branch ORAL) METHYLCELLU Yes Univer s LOSE (FIBER 6-07 ity of THERAPY 11:23: [facility]) 09 Medical Branch DOCUSATE Yes Take by Univer s SODIUM 6-07 mouth. ity of (COLACE 11:23: [place] ORAL) 09 Medical Branch vitamin C Yes 1000mg Take 1,000 [facility] with derrell 6-07 mg by ity of hips 11:23: mouth [place] (VITAMIN C) 09 daily. Medica l 1,000 mg Branch tablet cholecalcif Yes 1000U Take 1,000 [facility] edmar, 6-07 Units by ity of vitamin D3, 11:23: mouth [place] (VITAMIN 09 daily. Medical D3) 1,000 Branch unit tablet CRAN[place]ERRY Yes Take [place] [facility] [place] FRUIT 6-07 mouth ity of EXTRACT 11:23: daily. [place] (CRANBERRY Medical ORAL) Branch CALCIUM Yes Take by Univers ORAL 6-07 mouth ity of 11:23: daily. [place] [address] Medical Branch DOCOSAHEXAN Yes 1000mg Take 1,000 [facility] OIC 6-07 mg by ity of ACID/EPA 11:23: mouth [place] (FISH OIL 09 daily. Medical ORAL) Branch BIOTIN ORAL Yes Take by Uni vers 6-07 mouth. ity of 11:23: [place] [address] Medical Branch FOLIC ACID Yes Take by Univ ers ORAL 6-07 mouth ity of 11:23: daily. [place] [address] Medical Branch MULTIVIT Yes Take by Univer s &MINERALS/F 6-07 mouth. ity of ERROUS FUM 11:23: [place] ([place] [address] Medical VITAMIN Branch ORAL) METHYLCELLU Yes Univer s LOSE (FIBER 6-07 ity of THERAPY 11:23: [place] MIS) 09 Medical Branch DOCUSATE Yes [facility] [place] SODIUM 6-07 mouth. ity of (COLACE [...] tablet CRANBERRY Yes Take by [facility] [place] FRUIT 6-07 mouth ity of EXTRACT 11:23: daily. [place] ([place] Medical ORAL) Branch CALCIUM Yes Take by Univers ORAL 6-07 mouth ity of 11:23: daily. [place] [facility] DOCOSAHEXAN Yes 1000mg Take 1,000 [facility] OIC 6-07 mg by ity of ACID/EPA 11:23: mouth [place] (FISH OIL 09 daily. Medical ORAL) Branch BIOTIN ORAL Yes Take by Uni vers 6-07 mouth. ity of 11:23: [place] [facility] FOLIC ACID Yes Take by Univ ers ORAL 6-07 mouth ity of 11:23: daily. [place] [facility] MULTIVIT Yes [facility] [place] &MINERALS/F 6-07 mouth. ity of ERROUS FUM 11:23: [place] (MULTI 09 Medical VITAMIN Branch ORAL) METHYLCELLU Yes Univer s LOSE (FIBER 6-07 ity of THERAPY 11:23: [place] MISC) 09 Medical Branch DOCUSATE Yes [facility] [place] SODIUM 6-07 mouth. ity of (COLACE 11:23: [place] ORAL) 09 Medical Branch vitamin C Yes 1000mg Take 1,000 [facility] with derrell 6-07 mg by ity of hips 11:23: mouth [place] (VITAMIN C) 09 daily. Medica l 1,000 mg Branch tablet cholecalcif Yes 1000U Take 1,000 [facility] edmar, 6-07 Units by ity of vitamin D3, 11:23: mouth [place] (VITAMIN 09 daily. Medical D3) 1,000 Branch unit tablet CRANBERRY Yes Take by [facility] rs FRUIT 6-07 mouth ity of EXTRACT 11:23: daily. [place] (CRANBERRY 09 Medical ORAL) Branch CALCIUM Yes Take by Univers ORAL 6-07 mouth ity of 11:23: daily. [place] [facility] DOCOSAHEXAN Yes 1000mg Take 1,000 [facility] OIC 6-07 mg by ity of ACID/EPA 11:23: mouth [place] (FISH OIL 09 daily. Medical ORAL) Branch BIOTIN ORAL Yes Take by Uni vers 6-07 mouth. ity of 11:23: Medical Branch FOLIC ACID Yes Take by Univ ers ORAL 6-07 mouth ity of 11:23: daily. [place] [facility] MULTIVIT Yes Take by Univer s &MINERALS/F 6-07 mouth. ity of ERROUS FUM 11:23: [place] (MULTI 09 Medical VITAMIN Branch ORAL) METHYLCELLU Yes Univer s LOSE (FIBER 6-07 ity of THERAPY 11:23: [place] MISC) Medical Branch DOCUSATE Yes Take by Univer s SODIUM 6-07 mouth. ity of (COLACE 11:23: [place] ORAL) Medical Branch vitamin C Yes 1000mg Take 1,000 [facility] with derrell 6-07 mg by ity of hips 11:23: mouth [place] (VITAMIN C) 09 daily. Medica l 1,000 mg Branch tablet cholecalcif Yes 1000U Take 1,000 [facility] edmar, 6-07 Units by ity of vitamin D3, 11:23: mouth [place] (VITAMIN 09 daily. Medical D3) 1,000 Branch unit tablet CRANBERRY Yes Take by Unive rs FRUIT 6-07 mouth ity of EXTRACT 11:23: daily. [place] ([place] Medical ORAL) Branch CALCIUM Yes Take by [facility] ORAL 6-07 mouth ity of 11:23: daily. [place] [facility] DOCOSAHEXAN Yes 1000mg Take 1,000 [facility] OIC 6-07 mg by ity of ACID/EPA 11:23: mouth [place] (FISH OIL 09 daily. Medical ORAL) Branch BIOTIN ORAL Yes Take by Uni vers 6-07 mouth. ity of 11:23: [place] [facility] FOLIC ACID Yes Take by Univ ers ORAL 6-07 mouth ity of 11:23: daily. [place] 09 Medical Branch MULTIVIT [facility] [place] &MIN[facility]/F 6-07 mouth. ity of ERROUS FUM 11:23: [place] (MULTI 09 Medical VITAMIN Branch ORAL) METHYLCELLU 0 Yes [facility] [place] LOSE (FIBER 6- ity of THERAPY 11:23: [facility]) 09 Medical Branch DOCUSATE Yes Take [facility] [place] SODIUM 6-07 mouth. ity of (COLACE 11:23: [place] ORAL) 09 Medical Branch vitamin C Yes 1000mg Take 1,000 [facility] with derrell 6-07 mg by ity of hips 11:23: mouth [place] (VITAMIN C) 09 daily. Medica l 1,000 mg Branch tablet cholecalcif Yes 1000U Take 1,000 [facility] edmar, 6-07 Units by ity of vitamin D3, 11:23: mouth [place] (VITAMIN 09 daily. Medical D3) 1,000 Branch unit tablet CRANBERRY Yes Take by [facility] rs FRUIT 6-07 mouth ity of EXTRACT 11:23: daily. [place] ([place] 09 Medical ORAL) Branch CALCIUM Yes Take by Univers ORAL 6-07 mouth ity of 11:23: daily. [place] [address] Medical Branch DOCOSAHEXAN Yes 1000mg Take 1,000 [facility] OIC 6-07 mg by ity of ACID/EPA 11:23: mouth [place] (FISH OIL 09 daily. Medical ORAL) Branch BIOTIN ORAL Yes Take by Uni vers 6-07 mouth. ity of 11:23: [place] [address] Medical Branch FOLIC ACID Yes Take by [facility] [place] ers ORAL 6- mouth ity of 11:58: daily. [place] [address] Medical Branch MULTIVIT Yes [facility] [place] &MINERALS/F 6-01 mouth. ity of ERROUS FUM 11:58: [place] (MULTI 16 Medical VITAMIN Branch ORAL) METHYLCELLU 0 Yes [facility] [place] LOSE (FIBER 6-01 ity of THERAPY 11:58: [facility]) 16 Medical Branch DOCUSATE 0 Yes Take by [facility] s SODIUM 6-01 mouth. ity of (COLACE 11:58: [place] ORAL) 16 Medical Branch vitamin C Yes 1000mg Take 1,000 [facility] with derrell 6-01 mg by ity of hips 11:58: mouth [place] (VITAMIN C) 16 daily. Medica l 1,000 mg Branch tablet cholecalcif Yes 1000U Take 1,000 [facility] edmar, 6- Units by ity of vitamin D3, 11:58: mouth [place] (VITAMIN 16 daily. Medical D3) 1,000 Branch unit tablet CRANBERRY Yes Take [place] [facility] [place] FRUIT 6- mouth ity of EXTRACT 11:58: daily. [place] (CRANBERRY 16 Medical ORAL) [place] CALCIUM Yes Take by Univers ORAL 6- mouth ity of 11:58: daily. [address] Branch DOCOSAHEXAN Yes 1000mg Take 1,000 [facility] OIC 6-01 mg by ity of ACID/EPA 11:58: mouth [place] (FISH OIL 16 daily. Medical ORAL) [place] BIOTIN ORAL Yes Take by Uni vers 6-01 mouth. ity of 11:58: [address] metformin Yes [id number] 500mg Take 1 U nivers ER 500 mg 5-31 tablet by ity o f 24 hr 00:00: mouth [place] tablet 00 daily with Medical breakfast. Branch STOP REGULAR METFORMIN. metformin Yes [id number] 500mg Take 1 U nivers ER 500 mg 5-31 tablet by ity o f 24 hr 00:00: mouth [place] tablet 00 daily with Medical breakfast. Branch STOP REGULAR METFORMIN. metformin Yes [id number] 500mg Take 1 U nivers ER 500 mg 5-31 tablet by ity o f 24 hr 00:00: mouth [place] tablet 00 daily with Medical breakfast. Branch STOP REGULAR METFORMIN. metformin Yes [id number] 500mg Take 1 U nivers ER 500 mg 5-31 tablet by ity o f 24 hr 00:00: mouth [place] tablet 00 daily with Medical breakfast. Branch STOP REGULAR METFORMIN. metformin Yes [id number] 500mg Take 1 U nivers ER 500 mg 5-31 tablet by ity o f 24 hr 00:00: mouth [place] tablet 00 daily with Medical breakfast. Branch STOP REGULAR METFORMIN. metformin Yes [id number] 500mg Take 1 U nivers ER 500 mg 5-31 tablet by ity o f 24 hr 00:00: mouth [place] tablet 00 daily with Medical breakfast. Branch STOP REGULAR METFORMIN. metformin 2022-0 Yes [id number] 500mg Take 1 U nivers ER 500 mg 5-31 tablet by ity o f 24 hr 00:00: mouth [place] tablet 00 daily with Medical breakfast. Branch STOP REGULAR METFORMIN. metformin 2021-0 Yes [id number] 500mg Take 1 U nivers ER 500 mg 5-31 tablet by ity o f 24 hr 00:00: mouth [place] tablet 00 daily with Medical breakfast. Branch STOP REGULAR METFORMIN. metformin 2021-0 Yes [id number] 500mg Take 1 U nivers ER 500 mg 5-31 tablet by ity o f 24 hr 00:00: mouth [place] tablet 00 daily with Medical breakfast. Branch STOP REGULAR METFORMIN. metformin 2021-0 Yes [id number] 500mg Take 1 [facility] 500 mg 5-31 tablet by [facility] f 24 hr 00:00: mouth [place] tablet 00 daily with Medical breakfast. Branch STOP REGULAR METFORMIN. metformin 2021-0 Yes [id number] 500mg Take 1 [facility] 500 mg 5-31 tablet by [facility] f 24 hr 00:00: mouth [place] tablet 00 daily with Medical breakfast. Branch STOP REGULAR METFORMIN. metformin 2021-0 Yes [id number] 500mg Take 1 [facility] 500 mg 5-31 tablet by [facility] f 24 hr 00:00: mouth [place] tablet 00 daily with Medical breakfast. Branch STOP REGULAR METFORMIN. metformin 2021-0 Yes [id number] 500mg Take 1 [facility] 500 mg 5-31 tablet by [facility] f 24 hr 00:00: mouth [place] tablet 00 daily with Medical breakfast. Branch STOP REGULAR METFORMIN. metformin 2021-0 Yes [id number] 500mg Take 1 [facility] 500 mg 5-31 tablet by [facility] f 24 hr 00:00: mouth [place] tablet 00 daily with Medical breakfast. Branch STOP REGULAR METFORMIN. metformin 2021-0 Yes [id number] 500mg Take 1 [facility] 500 mg 5-31 tablet by [facility] f 24 hr 00:00: mouth [place] tablet 00 daily with Medical breakfast. Branch STOP REGULAR METFORMIN. metformin 2021-0 Yes [id number] 500mg Take 1 [facility] 500 mg 5-31 tablet by [facility] f 24 hr 00:00: mouth [place] tablet 00 daily with Medical breakfast. Branch STOP REGULAR METFORMIN. metformin 2021-0 Yes [id number] 500mg Take 1 [facility] 500 mg 5-31 tablet by [facility] f 24 hr 00:00: mouth [place] tablet 00 daily with Medical breakfast. Branch STOP REGULAR METFORMIN. metformin 2021-0 Yes [id number] 500mg Take 1 [facility] 500 mg 5-31 tablet by [facility] f 24 hr 00:00: mouth [place] tablet 00 daily with Medical breakfast. Branch STOP REGULAR METFORMIN. metformin 2021-0 Yes [id number] 500mg Take 1 [facility] 500 mg 5-31 tablet by [facility] f 24 hr 00:00: mouth [place] tablet 00 daily with Medical breakfast. Branch STOP REGULAR METFORMIN. metformin 2021-0 Yes [id number] 500mg Take 1 [facility] 500 mg 5-31 tablet by [facility] f 24 hr 00:00: mouth [place] tablet 00 daily with Medical breakfast. Branch STOP REGULAR METFORMIN. metformin 2021-0 Yes [id number] 500mg Take 1 [facility] 500 mg 5-31 tablet by [facility] f 24 hr 00:00: mouth [place] tablet 00 daily with Medical breakfast. Branch STOP REGULAR METFORMIN. metformin 2021-0 Yes [id number] 500mg Take 1 [facility] 500 mg 5-31 tablet by [facility] f 24 hr 00:00: mouth [place] tablet 00 daily with Medical breakfast. Branch STOP REGULAR METFORMIN. metformin 2021-0 Yes [id number] 500mg Take 1 [facility] 500 mg 5-31 tablet by [facility] f 24 hr 00:00: mouth [place] tablet 00 daily with Medical breakfast. Branch STOP REGULAR METFORMIN. metformin 2021-0 Yes [id number] 500mg Take 1 [facility] 500 mg 5-31 tablet by [facility] f 24 hr 00:00: mouth [place] tablet 00 daily with Medical breakfast. Branch STOP REGULAR METFORMIN. metformin 2021-0 Yes [id number] 500mg Take 1 [facility] 500 mg 5-31 tablet by [facility] f 24 hr 00:00: mouth [place] tablet 00 daily with Medical breakfast. Branch STOP REGULAR METFORMIN. metformin 2021-0 Yes [id number] 500mg Take 1 [facility] 500 mg 5-31 tablet by [facility] f 24 hr 00:00: mouth [place] tablet 00 daily with Medical breakfast. Branch STOP REGULAR METFORMIN. metformin 2021-0 Yes [id number] 500mg Take 1 [facility] 500 mg 5-31 tablet by [facility] f 24 hr 00:00: mouth [place] tablet 00 daily with Medical breakfast. Branch STOP REGULAR METFORMIN. metformin 2021-0 Yes [id number] 500mg Take 1 [facility] 500 mg 5-31 tablet by [facility] f 24 hr 00:00: mouth [place] tablet 00 daily with Medical breakfast. Branch STOP REGULAR METFORMIN. metformin 2021-0 Yes [id number] 500mg Take 1 [facility] 500 mg 5-31 tablet by [facility] f 24 hr 00:00: mouth [place] tablet 00 daily with Medical breakfast. Branch STOP REGULAR METFORMIN. metformin 2021-0 Yes [id number] 500mg Take 1 [facility] 500 mg 5-31 tablet by [facility] f 24 hr 00:00: mouth [place] tablet 00 daily with Medical breakfast. Branch STOP REGULAR METFORMIN. metformin 2021-0 Yes [id number] 500mg Take 1 [facility] 500 mg 5-31 tablet by [facility] f 24 hr 00:00: mouth [place] tablet 00 daily with Medical breakfast. Branch STOP REGULAR METFORMIN. metformin 2021-0 Yes [id number] 500mg Take 1 [facility] 500 mg 5-31 tablet by [facility] f 24 hr 00:00: mouth [place] tablet 00 daily with Medical breakfast. Branch STOP REGULAR METFORMIN. metformin 2021-0 Yes [id number] 500mg Take 1 [facility] 500 mg 5-31 tablet by [facility] f 24 hr 00:00: mouth [place] tablet 00 daily with Medical breakfast. Branch STOP REGULAR METFORMIN. metformin 2021-0 Yes [id number] 500mg Take 1 [facility] 500 mg 5-31 tablet by [facility] f 24 hr 00:00: mouth [place] tablet 00 daily with Medical breakfast. Branch STOP REGULAR METFORMIN. metformin 2021-0 Yes [id number] 500mg Take 1 [facility] 500 mg 5-31 tablet by [facility] f 24 hr 00:00: mouth [place] tablet 00 daily with Medical breakfast. Branch STOP REGULAR METFORMIN. metformin 2021-0 Yes [id number] 500mg Take 1 [facility] 500 mg 5-31 tablet by [facility] f 24 hr 00:00: mouth [place] tablet 00 daily with Medical breakfast. Branch STOP REGULAR METFORMIN. metformin 2021-0 Yes [id number] 500mg Take 1 [facility] 500 mg 5-31 tablet by [facility] f 24 hr 00:00: mouth [place] tablet 00 daily with Medical breakfast. Branch STOP REGULAR METFORMIN. metformin 2021-0 Yes [id number] 500mg Take 1 [facility] 500 mg 5-31 tablet by [facility] f 24 hr 00:00: mouth [place] tablet 00 daily with Medical breakfast. Branch STOP REGULAR METFORMIN. metformin 2021-0 Yes [id number] 500mg Take 1 [facility] 500 mg 5-31 tablet by [facility] f 24 hr 00:00: mouth [place] tablet 00 daily with Medical breakfast. Branch STOP REGULAR METFORMIN. metformin 2021-0 Yes [id number] 500mg Take 1 [facility] 500 mg 5-31 tablet by [facility] f 24 hr 00:00: mouth [place] tablet 00 daily with Medical breakfast. Branch STOP REGULAR METFORMIN. metformin 2021-0 Yes [id number] 500mg Take 1 [facility] 500 mg 5-31 tablet by [facility] f 24 hr 00:00: mouth [place] tablet 00 daily with Medical breakfast. Branch STOP REGULAR METFORMIN. metformin 2021-0 Yes [id number] 500mg Take 1 [facility] 500 mg 5-31 tablet by [facility] f 24 hr 00:00: mouth [place] tablet 00 daily with Medical breakfast. Branch STOP REGULAR METFORMIN. metformin 2021-0 Yes [id number] 500mg Take 1 [facility] 500 mg 5-31 tablet by [facility] f 24 hr 00:00: mouth [place] tablet 00 daily with Medical breakfast. Branch STOP REGULAR METFORMIN. metformin 2021-0 Yes [id number] 500mg Take 1 [facility] 500 mg 5-31 tablet by [facility] f 24 hr 00:00: mouth [place] tablet 00 daily with Medical breakfast. Branch STOP REGULAR METFORMIN. metformin 2021-0 Yes [id number] 500mg Take 1 [facility] 500 mg 5-31 tablet by [facility] f 24 hr 00:00: mouth [place] tablet 00 daily with Medical breakfast. Branch STOP REGULAR METFORMIN. metformin 2021-0 Yes [id number] 500mg Take 1 [facility] 500 mg 5-31 tablet by [facility] f 24 hr 00:00: mouth [place] tablet 00 daily with Medical breakfast. Branch STOP REGULAR METFORMIN. metformin 2021-0 Yes [id number] 500mg Take 1 [facility] 500 mg 5-31 tablet by [facility] f 24 hr 00:00: mouth [place] tablet 00 daily with Medical breakfast. Branch STOP REGULAR METFORMIN. metformin 2021-0 Yes [id number] 500mg Take 1 [facility] 500 mg 5-31 tablet by [facility] f 24 hr 00:00: mouth [place] tablet 00 daily with Medical breakfast. Branch STOP REGULAR METFORMIN. metformin 2021-0 2022- No [id number] 500mg Take 1 [facility] 500 mg 5-31 10-13 tablet by [facility] 24 hr 00:00: 00:00 mouth [place] tablet 00 :00 daily with Medical breakfast. Branch STOP REGULAR METFORMIN. ibuprofen 2021-0 Yes [id number] 600mg Take 1 [facility] 600 mg 5-19 [id number] tablet by [facility] tablet 00:00: mouth [place] 00 every 6 Medical (six) Branch hours as needed for Pain (scale 4-6). ibuprofen 2021-0 Yes [id number] 600mg Take 1 [facility] 600 mg 5-19 [id number] tablet by [facility] tablet 00:00: mouth [place] 00 every 6 Medical (six) Branch hours as needed for Pain (scale 4-6). ibuprofen 2021-0 Yes [id number] 600mg Take 1 [facility] 600 mg 5-19 [id number] tablet by [facility] tablet 00:00: mouth [place] 00 every 6 Medical (six) Branch hours as needed for Pain (scale 4-6). ibuprofen 2021-0 Yes [id number] 600mg Take 1 [facility] 600 mg 5-19 [id number] tablet by [facility] tablet 00:00: mouth [place] 00 every 6 Medical (six) Branch hours as needed for Pain (scale 4-6). ibuprofen 2021-0 Yes [id number] 600mg Take 1 [facility] 600 mg 5-19 [id number] tablet by [facility] tablet 00:00: mouth [place] 00 every 6 Medical (six) Branch hours as needed for Pain (scale 4-6). ibuprofen 2021-0 Yes [id number] 600mg Take 1 [facility] 600 mg 5-19 [id number] tablet by [facility] tablet 00:00: mouth [place] 00 every 6 Medical (six) Branch hours as needed for Pain (scale 4-6). ibuprofen 2021-0 Yes [id number] 600mg Take 1 [facility] 600 mg 5-19 [id number] tablet by [facility] tablet 00:00: mouth [place] 00 every 6 Medical (six) Branch hours as needed for Pain (scale 4-6). ibuprofen 2021-0 Yes [id number] 600mg Take 1 [facility] 600 mg 5-19 [id number] tablet by [facility] tablet 00:00: mouth [place] 00 every 6 Medical (six) Branch hours as needed for Pain (scale 4-6). ibuprofen 2022-0 Yes [id number] 600mg Take 1 [facility] 600 mg 5-19 [id number] tablet by [facility] tablet 00:00: mouth [place] 00 every 6 Medical (six) Branch hours as needed for Pain (scale 4-6). ibuprofen 2022-0 Yes [id number] 600mg Take 1 [facility] 600 mg 5-19 [id number] tablet by [facility] tablet 00:00: mouth [place] 00 every 6 Medical (six) Branch hours as needed for Pain (scale 4-6). ibuprofen 2022-0 Yes [id number] 600mg Take 1 [facility] 600 mg 5-19 [id number] tablet by [facility] of tablet 00:00: mouth [place] 00 every 6 Medical (six) Branch hours as needed for Pain (scale 4-6). ibuprofen 2022-0 Yes [id number] 600mg Take 1 [facility] 600 mg 5-19 [id number] tablet by [facility] tablet 00:00: mouth [place] 00 every 6 Medical (six) Branch hours as needed for Pain (scale 4-6). ibuprofen 2022-0 Yes [id number] 600mg Take 1 [facility] 600 mg 5-19 [id number] tablet by [facility] tablet 00:00: mouth [place] 00 every 6 Medical (six) Branch hours as needed for Pain (scale 4-6). ibuprofen 2022-0 Yes [id number] 600mg Take 1 [facility] 600 mg 5-19 [id number] tablet by [facility] tablet 00:00: mouth [place] 00 every 6 Medical (six) Branch hours as needed for Pain (scale 4-6). ibuprofen 2022-0 Yes [id number] 600mg Take 1 [facility] 600 mg 5-19 [id number] tablet by [facility] tablet 00:00: mouth [place] 00 every 6 Medical (six) Branch hours as needed for Pain (scale 4-6). ibuprofen 2022-0 Yes [id number] 600mg Take 1 [facility] 600 mg 5-19 [id number] tablet by [facility] tablet 00:00: mouth [place] 00 every 6 Medical (six) Branch hours as needed for Pain (scale 4-6). ibuprofen 2022-0 Yes [id number] 600mg Take 1 [facility] 600 mg 5-19 [id number] tablet by [facility] of tablet 00:00: mouth [place] 00 every 6 Medical (six) Branch hours as needed for Pain (scale 4-6). ibuprofen 2022-0 Yes [id number] 600mg Take 1 [facility] 600 mg 5-19 [id number] tablet by [facility] tablet 00:00: mouth [place] 00 every 6 Medical (six) Branch hours as needed for Pain (scale 4-6). ibuprofen 2022-0 Yes [id number] 600mg Take 1 [facility] 600 mg 5-19 [id number] tablet by [facility] of tablet 00:00: mouth [place] 00 every 6 Medical (six) Branch hours as needed for Pain (scale 4-6). ibuprofen 2022-0 Yes [id number] 600mg Take 1 [facility] 600 mg 5-19 [id number] tablet by [facility] of tablet 00:00: mouth [place] 00 every 6 Medical (six) Branch hours as needed for Pain (scale 4-6). ibuprofen 2022-0 Yes [id number] 600mg Take 1 [facility] 600 mg 5-19 [id number] tablet by [facility] of tablet 00:00: mouth [place] 00 every 6 Medical (six) Branch hours as needed for Pain (scale 4-6). ibuprofen 2022-0 Yes [id number] 600mg Take 1 [facility] 600 mg 5-19 [id number] tablet by [facility] of tablet 00:00: mouth [place] 00 every 6 Medical (six) Branch hours as needed for Pain (scale 4-6). ibuprofen 2022-0 Yes [id number] 600mg Take 1 [facility] 600 mg 5-19 [id number] tablet by [facility] of tablet 00:00: mouth [place] 00 every 6 Medical (six) Branch hours as needed for Pain (scale 4-6). ibuprofen 2022-0 Yes [id number] 600mg Take 1 [facility] 600 mg 5-19 [id number] tablet by [facility] of tablet 00:00: mouth [place] 00 every 6 Medical (six) Branch hours as needed for Pain (scale 4-6). ibuprofen 2022-0 Yes [id number] 600mg Take 1 [facility] 600 mg 5-19 [id number] tablet by [facility] of tablet 00:00: mouth [place] 00 every 6 Medical (six) Branch hours as needed for Pain (scale 4-6). ibuprofen 2022-0 Yes [id number] 600mg Take 1 [facility] 600 mg 5-19 [id number] tablet by [facility] of tablet 00:00: mouth [place] 00 every 6 Medical (six) Branch hours as needed for Pain (scale 4-6). ibuprofen 2022-0 Yes [id number] 600mg Take 1 [facility] 600 mg 5-19 [id number] tablet by [facility] of tablet 00:00: mouth [place] 00 every 6 Medical (six) Branch hours as needed for Pain (scale 4-6). ibuprofen 2022-0 Yes [id number] 600mg Take 1 [facility] 600 mg 5-19 [id number] tablet by [facility] of tablet 00:00: mouth [place] 00 every 6 Medical (six) Branch hours as needed for Pain (scale 4-6). ibuprofen 2022-0 Yes [id number] 600mg Take 1 [facility] 600 mg 5-19 [id number] tablet by [facility] of tablet 00:00: mouth [place] 00 every 6 Medical (six) Branch hours as needed for Pain (scale 4-6). ibuprofen 2022-0 Yes [id number] 600mg Take 1 [facility] 600 mg 5-19 [id number] tablet by [facility] of tablet 00:00: mouth [place] 00 every 6 Medical (six) Branch hours as needed for Pain (scale 4-6). ibuprofen 2022-0 Yes [id number] 600mg Take 1 [facility] 600 mg 5-19 [id number] tablet by [facility] of tablet 00:00: mouth [place] 00 every 6 Medical (six) Branch hours as needed for Pain (scale 4-6). ibuprofen 2022-0 Yes [id number] 600mg Take 1 [facility] 600 mg 5-19 [id number] tablet by [facility] of tablet 00:00: mouth [place] 00 every 6 Medical (six) Branch hours as needed for Pain (scale 4-6). ibuprofen 2022-0 Yes [id number] 600mg Take 1 [facility] 600 mg 5-19 [id number] tablet by [facility] tablet 00:00: mouth [place] 00 every 6 Medical (six) Branch hours as needed for Pain (scale 4-6). ibuprofen 2022-0 Yes [id number] 600mg Take 1 [facility] 600 mg 5-19 [id number] tablet by [facility] of tablet 00:00: mouth [place] 00 every 6 Medical (six) Branch hours as needed for Pain (scale 4-6). ibuprofen 2022-0 Yes [id number] 600mg Take 1 [facility] 600 mg 5-19 [id number] tablet by [facility] of tablet 00:00: mouth [place] 00 every 6 Medical (six) Branch hours as needed for Pain (scale 4-6). ibuprofen 2022-0 Yes [id number] 600mg Take 1 [facility] 600 mg 02-11 [id number] tablet by [facility] of tablet 00:00: mouth [place] 00 every 6 Medical (six) Branch hours as needed for Pain (scale 4-6). ibuprofen 2021-0 2022- No [id number] 600mg Take 1 [facility] 600 mg 02-11 [id number] tablet by [facility] o f tablet 00:00: 00:00 mouth [place] 00 :00 every 6 Medical (six) Branch hours as needed for Pain (scale 4-6). ibuprofen 2021-0 2- No [id number] 600mg Take 1 [facility] 600 mg 02-11 [id number] tablet by [facility] o f tablet 00:00: 00:00 mouth [place] 00 :00 every 6 Medical (six) Branch hours as needed for Pain (scale 4-6). ibuprofen 2021-0 2- No [id number] 600mg Take 1 [facility] 600 mg 02-11 [id number] tablet by [facility] o f tablet 00:00: 00:00 mouth [place] 00 :00 every 6 Medical (six) Branch hours as needed for Pain (scale 4-6). topiramate 2021-0 Yes [id number] 50mg Take 2 [facility] 25 mg 5-16 tablets by [facility] of tablet 00:00: mouth (two) Medical times Branch daily. topiramate 2021-0 Yes [id number] 50mg Take 2 [facility] 25 mg 5-16 tablets by [facility] of tablet 00:00: mouth (two) Medical times Branch daily. topiramate 2-0 Yes [id number] 50mg Take 2 [facility] 25 mg 5-16 tablets by [facility] of tablet 00:00: mouth (two) Medical times Branch daily. topiramate 2-0 Yes [id number] 50mg Take 2 [facility] 25 mg 5-16 tablets by [facility] of tablet 00:00: mouth (two) Medical times Branch daily. topiramate 2022-0 Yes [id number] 50mg Take 2 [facility] 25 mg 5-16 tablets by [facility] of tablet 00:00: mouth (two) Medical times Branch daily. topiramate 2022-0 Yes [id number] 50mg Take 2 [facility] 25 mg 5-16 tablets by [facility] of tablet 00:00: mouth 2 (two) Medical times Branch daily. topiramate 2022-0 Yes [id number] 50mg Take 2 [facility] 25 mg 5-16 tablets by [facility] of tablet 00:00: mouth 2 (two) Medical times Branch daily. topiramate 2022-0 Yes [id number] 50mg Take 2 [facility] 25 mg 5-16 tablets by [facility] of tablet 00:00: mouth 2 (two) Medical times Branch daily. topiramate 2022-0 Yes [id number] 50mg Take 2 [facility] 25 mg 5-16 tablets by [facility] of tablet 00:00: mouth 2 (two) Medical times Branch daily. SUMAtriptan 2022-0 Yes [id number] 50mg Take 1 [facility] 50 mg 5-16 tablet by [facility] of tablet 00:00: mouth as [place] 00 needed for Medical Migraine. Branch topiramate 2-0 Yes [id number] 50mg Take 2 [facility] 25 mg 5-16 tablets by [facility] of tablet 00:00: mouth (two) Medical times Branch daily. SUMAtriptan 2-0 Yes [id number] 50mg Take 1 [facility] 50 mg 5-16 tablet by [facility] of tablet 00:00: mouth as [place] 00 needed for Medical Migraine. Branch topiramate 2-0 Yes [id number] 50mg Take 2 [facility] 25 mg 5-16 tablets by [facility] of tablet 00:00: mouth 2 (two) Medical times Branch daily. SUMAtriptan 2-0 Yes [id number] 50mg Take 1 [facility] 50 mg 5-16 tablet by [facility] of tablet 00:00: mouth as [place] 00 needed for Medical Migraine. Branch topiramate 2-0 Yes [id number] 50mg Take 2 [facility] 25 mg 5-16 tablets by [facility] of tablet 00:00: mouth 2 (two) Medical times Branch daily. SUMAtriptan 2022-0 Yes [id number] 50mg Take 1 [facility] 50 mg 5-16 tablet by [facility] of tablet 00:00: mouth as [place] 00 needed for Medical Migraine. Branch topiramate 2-0 Yes [id number] 50mg Take 2 [facility] 25 mg 5-16 tablets by [facility] of tablet 00:00: mouth 2 (two) Medical times Branch daily. SUMAtriptan 2022-0 Yes [id number] 50mg Take 1 [facility] 50 mg 5-16 tablet by [facility] of tablet 00:00: mouth as 00 needed for Medical Migraine. Branch topiramate 2021-0 Yes [id number] 50mg Take 2 [facility] 25 mg 5-16 tablets by [facility] of tablet 00:00: mouth 2 [place] 00 (two) Medical times Branch daily. SUMAtriptan 2021-0 Yes [id number] 50mg Take 1 [facility] 50 mg 5-16 tablet by [facility] of tablet 00:00: mouth as 00 needed for Medical Migraine. Branch topiramate 2021-0 Yes [id number] 50mg Take 2 [facility] 25 mg 5-16 tablets by [facility] of tablet 00:00: mouth 2 [place] (two) Medical times Branch daily. topiramate 2021-0 Yes [id number] 50mg Take 2 [facility] 25 mg 5-16 tablets by [facility] of tablet 00:00: mouth 2 [place] 00 (two) Medical times Branch daily. topiramate 2021-0 Yes [id number] 50mg Take 2 [facility] 25 mg 5-16 tablets by [facility] of tablet 00:00: mouth 2 [place] 00 (two) Medical times Branch daily. topiramate 2021-0 Yes [id number] 50mg Take 2 [facility] 25 mg 5-16 tablets by [facility] of tablet 00:00: mouth 2 [place] 00 (two) Medical times Branch daily. topiramate 2021-0 Yes [id number] 50mg Take 2 [facility] 25 mg 5-16 tablets by [facility] of tablet 00:00: mouth 2 [place] 00 (two) Medical times Branch daily. topiramate 2021-0 Yes [id number] 50mg Take 2 [facility] 25 mg 5-16 tablets by [facility] of tablet 00:00: mouth 2 [place] 00 (two) Medical times Branch daily. topiramate 2021-0 2022- No [id number] 50mg Take 2 [facility] 25 mg 5-16 09-01 tablets by [facility] of tablet 00:00: 00:00 mouth 2 [place] 00 :00 (two) Medical times Branch daily. SUMAtriptan 2021-0 2022- No [id number] 50mg Take 1 [facility] 50 mg 5-16 [...] PadM 5-08 Dose to [facility] of 00:00: [facility]) [place] 00 before Medical meals. Branch ALCOHOL 2021-0 Yes 1{dose} Apply 1 [facility] ers PADS PadM 5-08 Dose to [facility] of 00:00: [facility]) [place] 00 before Medical meals. Branch ALCOHOL Yes 1{dose} Apply 1 [facility] ers PADS PadM 5-08 Dose to [facility]y of 00:00: [facility]) [place] 00 before Medical meals. Branch ALCOHOL 2021-0 Yes 1{dose} Apply 1 [facility] ers PADS PadM 5-08 Dose to [facility]y of 00:00: [facility]) [place] 00 before Medical meals. Branch ALCOHOL 2021-0 Yes 1{dose} Apply 1 [facility] ers PADS PadM 5-08 Dose to [facility]y of 00:00: [facility]) [place] 00 before Medical meals. Branch ALCOHOL 2021-0 Yes 1{dose} Apply 1 [facility] ers PADS PadM 5-08 Dose to [facility]y of 00:00: [facility]) [place] 00 before Medical meals. Branch ALCOHOL 2021-0 Yes 1{dose} Apply 1 [facility] ers PADS PadM 5-08 Dose to [facility]y of 00:00: [facility]) [place] 00 before Medical meals. Branch ALCOHOL [...] before Medical meals. Branch pregabalin 0 Yes [id number] 150mg Take 1 [facility] 150 mg 4-29 capsule by [facility] of capsule 00:00: mouth 3 (three) Medical times Branch daily. busPIRone 0 Yes [id number] 20mg Take 2 [facility] 10 mg 4-29 tablets by [facility] of tablet 00:00: mouth (two) Medical times Branch daily. citalopram 0 Yes [id number] 40mg Take 1 [facility] 40 mg 4-29 tablet by [facility] of tablet 00:00: mouth daily. Medical Branch pregabalin 0 Yes [id number] 150mg Take 1 [facility] 150 mg 4-29 capsule by [facility] of capsule 00:00: mouth 3 (three) Medical times Branch daily. busPIRone 2021-0 Yes [id number] 20mg Take 2 [facility] [place] 10 mg 4-29 tablets by [facility] of tablet 00:00: mouth 2 (two) Medical times Branch daily. citalopram 2021-0 Yes [id number] 40mg Take 1 [facility] 40 mg 4-29 tablet by [facility] of tablet 00:00: mouth 00 daily. Medical Branch pregabalin 2021-0 Yes [id number] 150mg Take 1 [facility] 150 mg 4-29 capsule by [facility] of capsule 00:00: mouth 3 (three) Medical times Branch daily. busPIRone 2021-0 Yes [id number] 20mg Take 2 [facility] [place] 10 mg 4-29 tablets by [facility] of tablet 00:00: mouth 2 (two) Medical times Branch daily. citalopram 2021-0 Yes [id number] 40mg Take 1 [facility] 40 mg 4-29 tablet by [facility] of tablet 00:00: mouth 00 daily. Medical Branch pregabalin 2021-0 Yes [id number] 150mg Take 1 [facility] 150 mg 4-29 capsule by [facility] of capsule 00:00: mouth 3 (three) Medical times Branch daily. busPIRone 2021-0 Yes [id number] 20mg Take 2 [facility] [place] 10 mg 4-29 tablets by [facility] of tablet 00:00: mouth (two) Medical times Branch daily. citalopram 2021-0 Yes [id number] 40mg Take 1 [facility] 40 mg 4-29 tablet by [facility] of tablet 00:00: mouth 00 daily. Medical Branch pregabalin 2021-0 Yes [id number] 150mg Take 1 [facility] 150 mg 4-29 capsule by [facility] of capsule 00:00: mouth (three) Medical times Branch daily. busPIRone 2021-0 Yes [id number] 20mg Take 2 [facility] [place] 10 mg 4-29 tablets by [facility] of tablet 00:00: mouth (two) Medical times Branch daily. citalopram 2021-0 Yes [id number] 40mg Take 1 [facility] 40 mg 4-29 tablet by [facility] of tablet 00:00: mouth daily. Medical Branch pregabalin 2021-0 Yes [id number] 150mg Take 1 [facility] 150 mg 4-29 capsule by [facility] of capsule 00:00: mouth (three) Medical times Branch daily. busPIRone 2021-0 Yes [id number] 20mg Take 2 [facility] [place] 10 mg 4-29 tablets by [facility] of tablet 00:00: mouth (two) Medical times Branch daily. citalopram 2021-0 Yes [id number] 40mg Take 1 [facility] 40 mg 4-29 tablet by [facility] of tablet 00:00: mouth 00 daily. Medical Branch pregabalin 2021-0 Yes [id number] 150mg Take 1 [facility] 150 mg 4-29 capsule by [facility] of capsule 00:00: mouth (three) Medical times Branch daily. busPIRone 2021-0 Yes [id number] 20mg Take 2 [facility] [place] 10 mg 4-29 tablets by [facility] of tablet 00:00: mouth (two) Medical times Branch daily. citalopram 2021-0 Yes [id number] 40mg Take 1 [facility] 40 mg 4-29 tablet by [facility] of tablet 00:00: mouth 00 daily. Medical Branch pregabalin 2021-0 Yes [id number] 150mg Take 1 [facility] 150 mg 4-29 capsule by [facility] of capsule 00:00: mouth 3 (three) Medical times Branch daily. busPIRone 2021-0 Yes [id number] 20mg Take 2 [facility] [place] 10 mg 4-29 tablets by [facility] of tablet 00:00: mouth (two) Medical times Branch daily. citalopram 2021-0 Yes [id number] 40mg Take 1 [facility] 40 mg 4-29 tablet by [facility] of tablet 00:00: mouth 00 daily. Medical Branch pregabalin 2021-0 Yes [id number] 150mg Take 1 [facility] 150 mg 4-29 capsule by [facility] of capsule 00:00: mouth (three) Medical times Branch daily. busPIRone 2021-0 Yes [id number] 20mg Take 2 [facility] [place] 10 mg 4-29 tablets by [facility] of tablet 00:00: mouth (two) Medical times Branch daily. citalopram 2021-0 Yes [id number] 40mg Take 1 [facility] 40 mg 4-29 tablet by [facility] of tablet 00:00: mouth daily. Medical Branch pregabalin 2021-0 Yes [id number] 150mg Take 1 [facility] 150 mg 4-29 capsule by [facility] of capsule 00:00: mouth (three) Medical times Branch daily. busPIRone 2021-0 Yes [id number] 20mg Take 2 [facility] [place] 10 mg 4-29 tablets by [facility] of tablet 00:00: mouth (two) Medical times Branch daily. citalopram 2021-0 Yes [id number] 40mg Take 1 [facility] 40 mg 4-29 tablet by [facility] of tablet 00:00: mouth 00 daily. Medical Branch pregabalin 2021-0 Yes [id number] 150mg Take 1 [facility] 150 mg 4-29 capsule by [facility] of capsule 00:00: mouth 3 (three) Medical times Branch daily. busPIRone 2021-0 Yes [id number] 20mg Take 2 [facility] [place] 10 mg 4-29 tablets by [facility] of tablet 00:00: mouth (two) Medical times Branch daily. citalopram 2021-0 Yes [id number] 40mg Take 1 [facility] 40 mg 4-29 tablet by [facility] of tablet 00:00: mouth 00 daily. Medical Branch pregabalin 2021-0 Yes [id number] 150mg Take 1 [facility] 150 mg 4-29 capsule by [facility]y of capsule 00:00: mouth 3 (three) Medical times Branch daily. busPIRone 2021-0 Yes [id number] 20mg Take 2 [facility] 10 mg 4-29 tablets by [facility] tablet 00:00: mouth (two) [facility] times [facility] daily. citalopram 2021-0 Yes [id number] 40mg Take 1 [facility] 40 mg 4-29 tablet by [facility] tablet 00:00: mouth daily. [facility] pregabalin 2021-0 Yes [id number] 150mg Take 1 [facility] 150 mg 4-29 capsule by [facility] capsule 00:00: mouth (three) [facility] times [facility] daily. busPIRone 2021-0 Yes [id number] 20mg Take 2 [facility] 10 mg 4-29 tablets by [facility] tablet 00:00: mouth (two) [facility] times [facility] daily. citalopram 2021-0 Yes [id number] 40mg Take 1 [facility] 40 mg 4-29 tablet by [facility] tablet 00:00: mouth daily. [facility] pregabalin 2021-0 Yes [id number] 150mg Take 1 [facility] 150 mg 4-29 capsule by [facility] capsule 00:00: mouth (three) [facility] times [facility] daily. busPIRone 2-0 Yes [id number] 20mg Take 2 [facility] 10 mg 4-29 tablets by [facility] tablet 00:00: mouth (two) [facility] times [facility] daily. citalopram 2-0 Yes [id number] 40mg Take 1 [facility] 40 mg 4-29 tablet by [facility] tablet 00:00: mouth 00 daily. [facility] pregabalin 2021-0 Yes [id number] 150mg Take 1 [facility] 150 mg 4-29 capsule by [facility] capsule 00:00: mouth (three) [facility] times [facility] daily. busPIRone 2021-0 Yes [id number] 20mg Take 2 [facility] 10 mg 4-29 tablets by [facility] tablet 00:00: mouth (two) [facility] times [facility] daily. citalopram 2021-0 Yes [id number] 40mg Take 1 [facility] 40 mg 4-29 tablet by [facility] tablet 00:00: mouth daily. [facility] pregabalin 2021-0 Yes [id number] 150mg Take 1 [facility] 150 mg 4-29 capsule by [facility] capsule 00:00: mouth 3 (three) [facility] times [facility] daily. busPIRone 2021-0 Yes [id number] 20mg Take 2 [facility] 10 mg 4-29 tablets by [facility] tablet 00:00: mouth (two) [facility] times [facility] daily. citalopram 2021-0 Yes [id number] 40mg Take 1 [facility] 40 mg 4-29 tablet by [facility] tablet 00:00: mouth daily. [facility] pregabalin 2021-0 Yes [id number] 150mg Take 1 [facility] 150 mg 4-29 capsule by [facility] capsule 00:00: mouth 3 (three) [facility] times [facility] daily. busPIRone 2021-0 Yes [id number] 20mg Take 2 [facility] 10 mg 4-29 tablets by [facility] tablet 00:00: mouth (two) [facility] times [facility] daily. citalopram 2021-0 Yes [id number] 40mg Take 1 [facility] 40 mg 4-29 tablet by [facility] tablet 00:00: mouth daily. [facility] pregabalin 2021-0 Yes [id number] 150mg Take 1 [facility] 150 mg 4-29 capsule by [facility] capsule 00:00: mouth 3 (three) [facility] times [facility] daily. busPIRone 2021-0 Yes [id number] 20mg Take 2 [facility] 10 mg 4-29 tablets by [facility] tablet 00:00: mouth (two) [facility] times [facility] daily. citalopram 2021-0 Yes [id number] 40mg Take 1 [facility] 40 mg 4-29 tablet by [facility] tablet 00:00: mouth 00 daily. [facility] pregabalin 2021-0 Yes [id number] 150mg Take 1 [facility] 150 mg 4-29 capsule by [facility] capsule 00:00: mouth 3 (three) [facility] times [facility] daily. busPIRone 2-0 Yes [id number] 20mg Take 2 [facility] 10 mg 4-29 tablets by [facility] tablet 00:00: mouth (two) [facility] times [facility] daily. citalopram 2021-0 Yes [id number] 40mg Take 1 [facility] 40 mg 4-29 tablet by [facility] tablet 00:00: mouth 00 daily. [facility] pregabalin 2021-0 Yes [id number] 150mg Take 1 [facility] 150 mg 4-29 capsule by [facility] capsule 00:00: mouth (three) [facility] times [facility] daily. busPIRone 2021-0 Yes [id number] 20mg Take 2 [facility] 10 mg 4-29 tablets by [facility] tablet 00:00: mouth (two) [facility] times [facility] daily. citalopram 2021-0 Yes [id number] 40mg Take 1 [facility] 40 mg 4-29 tablet by [facility] tablet 00:00: mouth daily. [facility] pregabalin 2021-0 Yes [id number] 150mg Take 1 [facility] 150 mg 4-29 capsule by [facility] capsule 00:00: mouth (three) [facility] times [facility] daily. busPIRone 2021-0 Yes [id number] 20mg Take 2 [facility] 10 mg 4-29 tablets by [facility] tablet 00:00: mouth (two) [facility] times [facility] daily. citalopram 2021-0 Yes [id number] 40mg Take 1 [facility] 40 mg 4-29 tablet by [facility] tablet 00:00: mouth daily. [facility] pregabalin 2021-0 Yes [id number] 150mg Take 1 [facility] 150 mg 4-29 capsule by [facility] capsule 00:00: mouth (three) [facility] times [facility] daily. busPIRone 2-0 Yes [id number] 20mg Take 2 [facility] 10 mg 4-29 tablets by [facility] tablet 00:00: mouth (two) [facility] times [facility] daily. citalopram 2-0 Yes [id number] 40mg Take 1 [facility] 40 mg 4-29 tablet by [facility] tablet 00:00: mouth 00 daily. [facility] pregabalin 2021-0 Yes [id number] 150mg Take 1 [facility] 150 mg 4-29 capsule by [facility] capsule 00:00: mouth 3 (three) [facility] times [facility] daily. busPIRone 2021-0 Yes [id number] 20mg Take 2 [facility] 10 mg 4-29 tablets by [facility] tablet 00:00: mouth (two) [facility] times [facility] daily. citalopram 2021-0 Yes [id number] 40mg Take 1 [facility] 40 mg 4-29 tablet by [facility] tablet 00:00: mouth 00 daily. [facility] pregabalin 2021-0 Yes [id number] 150mg Take 1 [facility] 150 mg 4-29 capsule by [facility] capsule 00:00: mouth (three) [facility] times [facility] daily. busPIRone 2021-0 Yes [id number] 20mg Take 2 [facility] 10 mg 4-29 tablets by [facility] tablet 00:00: mouth (two) [facility] times [facility] daily. citalopram 2021-0 Yes [id number] 40mg Take 1 [facility] 40 mg 4-29 tablet by [facility] tablet 00:00: mouth daily. [facility] pregabalin 2021-0 Yes [id number] 150mg Take 1 [facility] 150 mg 4-29 capsule by [facility] capsule 00:00: mouth (three) [facility] times [facility] daily. busPIRone 2021-0 Yes [id number] 20mg Take 2 [facility] 10 mg 4-29 tablets by [facility] tablet 00:00: mouth (two) [facility] times [facility] daily. citalopram 2021-0 Yes [id number] 40mg Take 1 [facility] 40 mg 4-29 tablet by [facility] tablet 00:00: mouth daily. [facility] pregabalin 2021-0 Yes [id number] 150mg Take 1 [facility] 150 mg 4-29 capsule by [facility] capsule 00:00: mouth 3 (three) [facility] times [facility] daily. busPIRone 2021-0 Yes [id number] 20mg Take 2 [facility] 10 mg 4-29 tablets by [facility] tablet 00:00: mouth (two) [facility] times [facility] daily. citalopram 2021-0 Yes [id number] 40mg Take 1 [facility] 40 mg 4-29 tablet by [facility] tablet 00:00: mouth 00 daily. [facility] pregabalin 2021-0 Yes [id number] 150mg Take 1 [facility] 150 mg 4-29 capsule by [facility] capsule 00:00: mouth (three) [facility] times [facility] daily. busPIRone 2021-0 Yes [id number] 20mg Take 2 [facility] 10 mg 4-29 tablets by [facility] tablet 00:00: mouth (two) [facility] times [facility] daily. citalopram 2021-0 Yes [id number] 40mg Take 1 [facility] 40 mg 4-29 tablet by [facility] tablet 00:00: mouth daily. [facility] pregabalin 2021-0 Yes [id number] 150mg Take 1 [facility] 150 mg 4-29 capsule by [facility] capsule 00:00: mouth (three) [facility] times [facility] daily. busPIRone 2021-0 Yes [id number] 20mg Take 2 [facility] 10 mg 4-29 tablets by [facility] tablet 00:00: mouth (two) [facility] times [facility] daily. citalopram 2021-0 Yes [id number] 40mg Take 1 [facility] 40 mg 4-29 tablet by [facility] tablet 00:00: mouth daily. [facility] pregabalin 2021-0 Yes [id number] 150mg Take 1 [facility] 150 mg 4-29 capsule by [facility] capsule 00:00: mouth (three) [facility] times [facility] daily. busPIRone 2-0 Yes [id number] 20mg Take 2 [facility] 10 mg 4-29 tablets by [facility] tablet 00:00: mouth (two) [facility] times [facility] daily. citalopram 2-0 Yes [id number] 40mg Take 1 [facility] 40 mg 4-29 tablet by [facility] tablet 00:00: mouth 00 daily. [facility] pregabalin 2021-0 Yes [id number] 150mg Take 1 [facility] 150 mg 4-29 capsule by [facility] capsule 00:00: mouth (three) [facility] times [facility] daily. busPIRone 2022-0 Yes [id number] 20mg Take 2 [facility] 10 mg 4-29 tablets by [facility] tablet 00:00: mouth (two) [facility] times [facility] daily. citalopram 2021-0 Yes [id number] 40mg Take 1 [facility] 40 mg 4-29 tablet by [facility] tablet 00:00: mouth 00 daily. [facility] pregabalin 2021-0 Yes [id number] 150mg Take 1 [facility] 150 mg 4-29 capsule by [facility] capsule 00:00: mouth 3 (three) [facility] times [facility] daily. busPIRone 2021-0 Yes [id number] 20mg Take 2 [facility] 10 mg 4-29 tablets by [facility] tablet 00:00: mouth (two) [facility] times [facility] daily. citalopram 2021-0 Yes [id number] 40mg Take 1 [facility] 40 mg 4-29 tablet by [facility] tablet 00:00: mouth 00 daily. [facility] pregabalin 2021-0 Yes [id number] 150mg Take 1 [facility] 150 mg 4-29 capsule by [facility] capsule 00:00: mouth (three) [facility] times [facility] daily. busPIRone 2021-0 Yes [id number] 20mg Take 2 [facility] 10 mg 4-29 tablets by [facility] tablet 00:00: mouth (two) [facility] times [facility] daily. citalopram 2021-0 Yes [id number] 40mg Take 1 [facility] 40 mg 4-29 tablet by [facility] tablet 00:00: mouth daily. [facility] pregabalin 2021-0 Yes [id number] 150mg Take 1 [facility] 150 mg 4-29 capsule by [facility] capsule 00:00: mouth 3 (three) [facility] times [facility] daily. busPIRone 2021-0 Yes [id number] 20mg Take 2 [facility] 10 mg 4-29 tablets by [facility] tablet 00:00: mouth (two) [facility] times [facility] daily. citalopram 2021-0 Yes [id number] 40mg Take 1 [facility] 40 mg 4-29 tablet by [facility] tablet 00:00: mouth 00 daily. [facility] pregabalin 2021-0 Yes [id number] 150mg Take 1 [facility] 150 mg 4-29 capsule by [facility] capsule 00:00: mouth 3 (three) [facility] times [facility] daily. busPIRone 2021-0 Yes [id number] 20mg Take 2 [facility] 10 mg 4-29 tablets by [facility] tablet 00:00: mouth (two) [facility] times [facility] daily. citalopram 2021-0 Yes [id number] 40mg Take 1 [facility] 40 mg 4-29 tablet by [facility] tablet 00:00: mouth daily. [facility] pregabalin 2021-0 Yes [id number] 150mg Take 1 [facility] 150 mg 4-29 capsule by [facility] capsule 00:00: mouth (three) [facility] times [facility] daily. busPIRone 2021-0 Yes [id number] 20mg Take 2 [facility] 10 mg 4-29 tablets by [facility] tablet 00:00: mouth (two) [facility] times [facility] daily. citalopram 2021-0 Yes [id number] 40mg Take 1 [facility] 40 mg 4-29 tablet by [facility] tablet 00:00: mouth daily. [facility] pregabalin 2021-0 Yes [id number] 150mg Take 1 [facility] 150 mg 4-29 capsule by [facility] capsule 00:00: mouth (three) [facility] times [facility] daily. busPIRone 2021-0 Yes [id number] 20mg Take 2 [facility] 10 mg 4-29 tablets by [facility] tablet 00:00: mouth (two) [facility] times [facility] daily. citalopram 2021-0 Yes [id number] 40mg Take 1 [facility] 40 mg 4-29 tablet by [facility] tablet 00:00: mouth daily. [facility] pregabalin 2021-0 Yes [id number] 150mg Take 1 [facility] 150 mg 4-29 capsule by [facility] capsule 00:00: mouth (three) [facility] times [facility] daily. busPIRone 2-0 Yes [id number] 20mg Take 2 [facility] 10 mg 4-29 tablets by [facility] tablet 00:00: mouth (two) [facility] times [facility] daily. citalopram 2021-0 Yes [id number] 40mg Take 1 [facility] 40 mg 4-29 tablet by [facility] tablet 00:00: mouth [place] 00 daily. [facility] citalopram Yes [id number] 40mg Take 1 [facility] 40 mg 4-29 tablet by [facility] tablet 00:00: mouth [place] 00 daily. [facility] citalopram 0 Yes [id number] 40mg Take 1 [facility] 40 mg 4-29 tablet by [facility] tablet 00:00: mouth [place] 00 daily. [facility] citalopram 0 Yes [id number] 40mg Take 1 [facility] 40 mg 4-29 tablet by [facility] tablet 00:00: mouth [place] 00 daily. [facility] citalopram 0 Yes [id number] 40mg Take 1 [facility] 40 mg 4-29 tablet by [facility] tablet 00:00: mouth [place] 00 daily. [facility] citalopram Yes [id number] 40mg Take 1 [facility] 40 mg 4-29 tablet by [facility] tablet 00:00: mouth [place] 00 daily. [facility] citalopram Yes [id number] 40mg Take 1 [facility] 40 mg 4-29 tablet by [facility] tablet 00:00: mouth [place] 00 daily. [facility] citalopram Yes [id number] 40mg Take 1 [facility] 40 mg 4-29 tablet by [facility] tablet 00:00: mouth [place] 00 daily. [facility] citalopram Yes [id number] 40mg Take 1 [facility] 40 mg 4-29 tablet by [facility] tablet 00:00: mouth [place] 00 daily. [facility] citalopram 0 Yes [id number] 40mg Take 1 [facility] 40 mg 4-29 tablet by [facility] tablet 00:00: mouth [place] 00 daily. [facility] citalopram 0 Yes [id number] 40mg Take 1 [facility] 40 mg 4-29 tablet by [facility] tablet 00:00: mouth [place] 00 daily. [facility] citalopram 0 Yes [id number] 40mg Take 1 [facility] 40 mg 4-29 tablet by [facility] tablet 00:00: mouth [place] 00 daily. [facility] citalopram 0 Yes [id number] 40mg Take 1 [facility] 40 mg 4-29 tablet by [facility] tablet 00:00: mouth [place] 00 daily. [facility] citalopram 0 Yes [id number] 40mg Take 1 [facility] 40 mg 4-29 tablet by [facility] tablet 00:00: mouth [place] 00 daily. [facility] citalopram 0 Yes [id number] 40mg Take 1 [facility] 40 mg 4-29 tablet by [facility] tablet 00:00: mouth [place] 00 daily. [facility] citalopram 0 Yes [id number] 40mg Take 1 [facility] 40 mg 4-29 tablet by [facility] tablet 00:00: mouth [place] 00 daily. [facility] citalopram 0 Yes [id number] 40mg Take 1 [facility] 40 mg 4-29 tablet by [facility] tablet 00:00: mouth [place] 00 daily. [facility] citalopram Yes [id number] 40mg Take 1 [facility] 40 mg 4-29 tablet by [facility] tablet 00:00: mouth [place] 00 daily. [facility] citalopram Yes [id number] 40mg Take 1 [facility] 40 mg 4-29 tablet by [facility] tablet 00:00: mouth [place] 00 daily. [facility] citalopram Yes [id number] 40mg Take 1 [facility] 40 mg 4-29 tablet by [facility] tablet 00:00: mouth [place] 00 daily. [facility] citalopram Yes [id number] 40mg Take 1 [facility] 40 mg 4-29 tablet by [facility] tablet 00:00: mouth [place] 00 daily. [facility] citalopram 0 Yes [id number] 40mg Take 1 [facility] 40 mg 4-29 tablet by [facility] tablet 00:00: mouth [place] 00 daily. [facility] citalopram 0 Yes [id number] 40mg Take 1 [facility] 40 mg 4-29 tablet by [facility] tablet 00:00: mouth [place] 00 daily. [facility] citalopram 0 Yes [id number] 40mg Take 1 [facility] 40 mg 4-29 tablet by [facility] tablet 00:00: mouth [place] 00 daily. [facility] citalopram 0 Yes [id number] 40mg Take 1 [facility] 40 mg 4-29 tablet by [facility] tablet 00:00: mouth [place] 00 daily. [facility] citalopram 0 Yes [id number] 40mg Take 1 [facility] 40 mg 4-29 tablet by [facility] tablet 00:00: mouth [place] 00 daily. [facility] citalopram 0 Yes [id number] 40mg Take 1 [facility] 40 mg 4-29 tablet by [facility] tablet 00:00: mouth [place] 00 daily. [facility] citalopram 0 Yes [id number] 40mg Take 1 [facility] 40 mg 4-29 tablet by [facility] tablet 00:00: mouth [place] 00 daily. [facility] citalopram 0 Yes [id number] 40mg Take 1 [facility] 40 mg 4-29 tablet by [facility] tablet 00:00: mouth [place] 00 daily. [facility] citalopram Yes [id number] 40mg Take 1 [facility] 40 mg 4-29 tablet by [facility] tablet 00:00: mouth [place] 00 daily. [facility] citalopram Yes [id number] 40mg Take 1 [facility] 40 mg 4-29 tablet by [facility] tablet 00:00: mouth [place] 00 daily. [facility] citalopram 0 Yes [id number] 40mg Take 1 [facility] 40 mg 4-29 tablet by [facility] tablet 00:00: mouth [place] 00 daily. [facility] citalopram Yes [id number] 40mg Take 1 [facility] 40 mg 4-29 tablet by [facility] tablet 00:00: mouth [place] 00 daily. [facility] citalopram 0 Yes [id number] 40mg Take 1 [facility] 40 mg 4-29 tablet by [facility] tablet 00:00: mouth [place] 00 daily. [facility] citalopram 0 Yes [id number] 40mg Take 1 [facility] 40 mg 4-29 tablet by [facility] tablet 00:00: mouth [place] 00 daily. [facility] citalopram 0 Yes [id number] 40mg Take 1 [facility] 40 mg 4-29 tablet by [facility] tablet 00:00: mouth [place] 00 daily. [facility] citalopram 0 Yes [id number] 40mg Take 1 [facility] 40 mg 4-29 tablet by [facility] tablet 00:00: mouth [place] 00 daily. [facility] citalopram 0 Yes [id number] 40mg Take 1 [facility] 40 mg 4-29 tablet by [facility] tablet 00:00: mouth [place] 00 daily. [facility] citalopram 0 Yes [id number] 40mg Take 1 [facility] 40 mg 4-29 tablet by [facility] tablet 00:00: mouth [place] 00 daily. [facility] citalopram 0 Yes [id number] 40mg Take 1 [facility] 40 mg 4-29 tablet by [facility] tablet 00:00: mouth [place] 00 daily. [facility] citalopram 0 Yes [id number] 40mg Take 1 [facility] 40 mg 4-29 tablet by [facility] tablet 00:00: mouth [place] 00 daily. [facility] citalopram 0 Yes [id number] 40mg Take 1 [facility] 40 mg 4-29 tablet by [facility] tablet 00:00: mouth [place] 00 daily. [facility] citalopram 0 Yes [id number] 40mg Take 1 [facility] 40 mg 4-29 tablet by [facility] tablet 00:00: mouth [place] 00 daily. [facility] citalopram 0 Yes [id number] 40mg Take 1 [facility] 40 mg 4-29 tablet by [facility] tablet 00:00: mouth [place] 00 daily. [facility] citalopram 0 Yes [id number] 40mg Take 1 [facility] 40 mg 4-29 tablet by [facility] tablet 00:00: mouth [place] 00 daily. [facility] citalopram 0 Yes [id number] 40mg Take 1 [facility] 40 mg 4-29 tablet by [facility] tablet 00:00: mouth [place] 00 daily. [facility] citalopram 0 Yes [id number] 40mg Take 1 [facility] 40 mg 4-29 tablet by [facility] tablet 00:00: mouth [place] 00 daily. [facility] citalopram 0 Yes [id number] 40mg Take 1 [facility] 40 mg 4-29 tablet by [facility] tablet 00:00: mouth [place] 00 daily. [facility] citalopram 2022-0 Yes [id number] 40mg Take 1 [facility] 40 mg 4-29 tablet by [facility] tablet 00:00: mouth [place] 00 daily. [facility] citalopram 0 Yes [id number] 40mg Take 1 [facility] 40 mg 4-29 tablet by [facility] tablet 00:00: mouth [place] 00 daily. [facility] citalopram 0 Yes [id number] 40mg Take 1 [facility] 40 mg 4-29 tablet by [facility] tablet 00:00: mouth [place] 00 daily. [facility] citalopram 0 Yes [id number] 40mg Take 1 [facility] 40 mg 4-29 tablet by [facility] tablet 00:00: mouth [place] 00 daily. [facility] citalopram 0 Yes [id number] 40mg Take 1 [facility] 40 mg 4-29 tablet by [facility] tablet 00:00: mouth [place] 00 daily. [facility] citalopram 0 Yes [id number] 40mg Take 1 [facility] 40 mg 4-29 tablet by [facility] tablet 00:00: mouth [place] 00 daily. [facility] citalopram 0 Yes [id number] 40mg Take 1 [facility] 40 mg 4-29 tablet by [facility] tablet 00:00: mouth [place] 00 daily. [facility] citalopram 0 Yes [id number] 40mg Take 1 [facility] 40 mg 4-29 tablet by [facility] tablet 00:00: mouth [place] 00 daily. [facility] citalopram 0 Yes [id number] 40mg Take 1 [facility] 40 mg 4-29 tablet by [facility] tablet 00:00: mouth [place] 00 daily. [facility] citalopram 0 Yes [id number] 40mg Take 1 [facility] 40 mg 4-29 tablet by [facility] tablet 00:00: mouth [place] 00 daily. [facility] citalopram 0 Yes [id number] 40mg Take 1 [facility] 40 mg 4-29 tablet by [facility] tablet 00:00: mouth [place] 00 daily. [facility] citalopram 0 Yes [id number] 40mg Take 1 [facility] 40 mg 4-29 tablet by [facility] tablet 00:00: mouth [place] 00 daily. [facility] citalopram 2022-0 Yes [id number] 40mg Take 1 [facility] 40 mg 4-29 tablet by [facility] tablet 00:00: mouth [place] 00 daily. [facility] citalopram 0 Yes [id number] 40mg Take 1 [facility] 40 mg 4-29 tablet by [facility] tablet 00:00: mouth [place] 00 daily. [facility] citalopram 0 Yes [id number] 40mg Take 1 [facility] 40 mg 4-29 tablet by [facility] tablet 00:00: mouth [place] 00 daily. [facility] citalopram 0 Yes [id number] 40mg Take 1 [facility] 40 mg 4-29 tablet by [facility] tablet 00:00: mouth [place] 00 daily. [facility] citalopram 0 Yes [id number] 40mg Take 1 [facility] 40 mg 4-29 tablet by [facility] tablet 00:00: mouth [place] 00 daily. [facility] citalopram 0 Yes [id number] 40mg Take 1 [facility] 40 mg 4-29 tablet by [facility] tablet 00:00: mouth [place] 00 daily. [facility] citalopram 0 Yes [id number] 40mg Take 1 [facility] 40 mg 4-29 tablet by [facility] tablet 00:00: mouth [place] 00 daily. [facility] citalopram 0 Yes [id number] 40mg Take 1 [facility] 40 mg 4-29 tablet by [facility] tablet 00:00: mouth [place] 00 daily. [facility] citalopram 0 Yes [id number] 40mg Take 1 [facility] 40 mg 4-29 tablet by [facility] tablet 00:00: mouth [place] 00 daily. [facility] citalopram 0 Yes [id number] 40mg Take 1 [facility] 40 mg 4-29 tablet by [facility] tablet 00:00: mouth [place] 00 daily. [facility] citalopram 0 Yes [id number] 40mg Take 1 [facility] 40 mg 4-29 tablet by [facility] tablet 00:00: mouth [place] 00 daily. [facility] citalopram 0 Yes [id number] 40mg Take 1 [facility] 40 mg 4-29 tablet by [facility] tablet 00:00: mouth [place] 00 daily. [facility] pregabalin 2022-0 Yes [id number] 150mg Take 1 [facility] 150 mg 4-29 capsule by [facility] capsule 00:00: mouth 3 (three) [facility] times [facility] daily. busPIRone 2021-0 Yes [id number] 20mg Take 2 [facility] 10 mg 4-29 tablets by [facility] tablet 00:00: mouth (two) [facility] times [facility] daily. citalopram 2021-0 Yes [id number] 40mg Take 1 [facility] 40 mg 4-29 tablet by [facility] tablet 00:00: mouth 00 daily. [facility] pregabalin 2021-0 Yes [id number] 150mg Take 1 [facility] 150 mg 4-29 capsule by [facility] capsule 00:00: mouth (three) [facility] times [facility] daily. busPIRone 2021-0 Yes [id number] 20mg Take 2 [facility] 10 mg 4-29 tablets by [facility] tablet 00:00: mouth (two) [facility] times [facility] daily. citalopram 2021-0 Yes [id number] 40mg Take 1 [facility] 40 mg 4-29 tablet by [facility] tablet 00:00: mouth daily. [facility] pregabalin 2021-0 Yes [id number] 150mg Take 1 [facility] 150 mg 4-29 capsule by [facility] capsule 00:00: mouth (three) [facility] times [facility] daily. busPIRone 2021-0 Yes [id number] 20mg Take 2 [facility] 10 mg 4-29 tablets by [facility] tablet 00:00: mouth (two) [facility] times [facility] daily. citalopram 2021-0 Yes [id number] 40mg Take 1 [facility] 40 mg 4-29 tablet by [facility] tablet 00:00: mouth daily. [facility] pregabalin 2021-0 Yes [id number] 150mg Take 1 [facility] 150 mg 4-29 capsule by [facility] capsule 00:00: mouth 3 (three) [facility] times [facility] daily. busPIRone 2021-0 Yes [id number] 20mg Take 2 [facility] 10 mg 4-29 tablets by [facility] tablet 00:00: mouth (two) [facility] times [facility] daily. citalopram 2021-0 Yes [id number] 40mg Take 1 [facility] 40 mg 4-29 tablet by [facility] tablet 00:00: mouth 00 daily. [facility] pregabalin 2021-0 Yes [id number] 150mg Take 1 [facility] 150 mg 4-29 capsule by [facility] capsule 00:00: mouth 3 (three) [facility] times [facility] daily. busPIRone 2021-0 Yes [id number] 20mg Take 2 [facility] 10 mg 4-29 tablets by [facility] tablet 00:00: mouth (two) [facility] times [facility] daily. citalopram 2021-0 Yes [id number] 40mg Take 1 [facility] 40 mg 4-29 tablet by [facility] tablet 00:00: mouth 00 daily. [facility] pregabalin 2021-0 Yes [id number] 150mg Take 1 [facility] 150 mg 4-29 capsule by [facility] capsule 00:00: mouth 3 (three) [facility] times [facility] daily. busPIRone 2021-0 Yes [id number] 20mg Take 2 [facility] 10 mg 4-29 tablets by [facility] tablet 00:00: mouth (two) [facility] times [facility] daily. citalopram 2021-0 Yes [id number] 40mg Take 1 [facility] 40 mg 4-29 tablet by [facility] tablet 00:00: mouth 00 daily. [facility] pregabalin 2021-0 Yes [id number] 150mg Take 1 [facility] 150 mg 4-29 capsule by [facility] capsule 00:00: mouth (three) [facility] times [facility] daily. busPIRone 2021-0 Yes [id number] 20mg Take 2 [facility] 10 mg 4-29 tablets by [facility] tablet 00:00: mouth (two) [facility] times [facility] daily. citalopram 2021-0 Yes [id number] 40mg Take 1 [facility] 40 mg 4-29 tablet by [facility] tablet 00:00: mouth 00 daily. [facility] pregabalin 2021-0 Yes [id number] 150mg Take 1 [facility] 150 mg 4-29 capsule by [facility] capsule 00:00: mouth 3 (three) [facility] times [facility] daily. busPIRone 2021-0 Yes [id number] 20mg Take 2 [facility] 10 mg 4-29 tablets by [facility] tablet 00:00: mouth (two) [facility] times [facility] daily. citalopram 2021-0 Yes [id number] 40mg Take 1 [facility] 40 mg 4-29 tablet by [facility] tablet 00:00: mouth 00 daily. [facility] pregabalin 2021-0 Yes [id number] 150mg Take 1 [facility] 150 mg 4-29 capsule by [facility] capsule 00:00: mouth 3 (three) [facility] times [facility] daily. busPIRone 2021-0 Yes [id number] 20mg Take 2 [facility] 10 mg 4-29 tablets by [facility] tablet 00:00: mouth (two) [facility] times [facility] daily. citalopram 2021-0 Yes [id number] 40mg Take 1 [facility] 40 mg 4-29 tablet by [facility] tablet 00:00: mouth 00 daily. [facility] pregabalin 2021-0 Yes [id number] 150mg Take 1 [facility] 150 mg 4-29 capsule by [facility] capsule 00:00: mouth (three) [facility] times [facility] daily. busPIRone 2021-0 Yes [id number] 20mg Take 2 [facility] 10 mg 4-29 tablets by [facility] tablet 00:00: mouth (two) [facility] times [facility] daily. citalopram 2021-0 Yes [id number] 40mg Take 1 [facility] 40 mg 4-29 tablet by [facility] tablet 00:00: mouth 00 daily. [facility] pregabalin 2021-0 Yes [id number] 150mg Take 1 [facility] 150 mg 4-29 capsule by [facility] capsule 00:00: mouth 3 (three) [facility] times [facility] daily. busPIRone 2021-0 Yes [id number] 20mg Take 2 [facility] 10 mg 4-29 tablets by [facility] tablet 00:00: mouth (two) [facility] times [facility] daily. citalopram 2021-0 Yes [id number] 40mg Take 1 [facility] 40 mg 4-29 tablet by [facility] tablet 00:00: mouth 00 daily. [facility] pregabalin 2021-0 2021- No [id number] 150mg Take 1 [facility] 150 mg 4-29 10-13 capsule by [facility] capsule 00:00: 00:00 mouth 3 00 :00 (three) [facility] times [facility] daily. busPIRone 2021- No [id number] 20mg Take 2 [facility] 10 mg 4-29 10-13 tablets by [facility] tablet 00:00: 00:00 mouth 2 [place] 00 :00 (two) [facility] times [facility] daily. pantoprazol 0 Yes [id number] 40mg Take 1 [facility] 40 mg EC 4-04 tablet by [facility] tablet 00:00: mouth [place] 00 daily. [facility] pantoprazol 0 Yes [id number] 40mg Take 1 [facility] 40 mg EC 4-04 tablet by [facility] of tablet 00:00: mouth [place] 00 daily. [facility] pantoprazol 0 Yes [id number] 40mg Take 1 [facility] 40 mg EC 4-04 tablet by [facility]y of tablet 00:00: mouth [place] 00 daily. [facility] pantoprazol 0 Yes [id number] 40mg Take 1 [facility] 40 mg EC 4-04 tablet by [facility]y of tablet 00:00: mouth [place] 00 daily. [facility] pantoprazol Yes [id number] 40mg Take 1 [facility] e 40 mg EC 4-04 tablet by [facility]y of tablet 00:00: mouth [place] 00 daily. [facility] pantoprazol 0 Yes [id number] 40mg Take 1 [facility] 40 mg EC 4-04 tablet by [facility]y of tablet 00:00: mouth [place] 00 daily. [facility] pantoprazol 0 Yes [id number] 40mg Take 1 [facility] e 40 mg EC 4-04 tablet by [facility]y of tablet 00:00: mouth [place] 00 daily. [facility] pantoprazol 2021-0 Yes [id number] 40mg Take 1 [facility] 40 mg EC 4-04 tablet by [facility]y of tablet 00:00: mouth [place] 00 daily. [facility] pantoprazol 2021-0 Yes [id number] 40mg Take 1 [facility] 40 mg EC 4-04 tablet by ity of tablet 00:00: mouth [place] 00 daily. [facility] pantoprazol 0 Yes [id number] 40mg Take 1 [facility] e 40 mg EC 4-04 tablet by [facility]y of tablet 00:00: mouth [place] 00 daily. [facility] pantoprazol 0 Yes [id number] 40mg Take 1 [facility] e 40 mg EC 4-04 tablet by [facility]y of tablet 00:00: mouth [place] 00 daily. [facility] pantoprazol 2021- Yes [id number] 40mg Take 1 [facility] 40 mg EC 4-04 tablet by [facility]y of tablet 00:00: mouth [place] 00 daily. [facility] pantoprazol Yes [id number] 40mg Take 1 [facility] 40 mg EC 4-04 tablet by [facility]y of tablet 00:00: mouth [place] 00 daily. [facility] pantoprazol Yes [id number] 40mg Take 1 [facility] 40 mg EC 4-04 tablet by [facility]y of tablet 00:00: mouth [place] 00 daily. [facility] pantoprazol Yes [id number] 40mg Take 1 [facility] 40 mg EC 4-04 tablet by ity of tablet 00:00: mouth [place] 00 daily. [facility] pantoprazol Yes [id number] 40mg Take 1 [facility] 40 mg EC 4-04 tablet by [facility]y of tablet 00:00: mouth [place] 00 daily. [facility] pantoprazol Yes [id number] 40mg Take 1 [facility] 40 mg EC 4-04 tablet by [facility]y of tablet 00:00: mouth [place] 00 daily. [facility] pantoprazol Yes [id number] 40mg Take 1 [facility] 40 mg EC 4-04 tablet by [facility]y of tablet 00:00: mouth [place] 00 daily. [facility] pantoprazol Yes [id number] 40mg Take 1 [facility] 40 mg EC 4-04 tablet by [facility]y of tablet 00:00: mouth [place] 00 daily. [facility] pantoprazol 2021-0 Yes [id number] 40mg Take 1 [facility] 40 mg EC 4-04 tablet by [facility] of tablet 00:00: mouth [place] 00 daily. [facility] pantoprazol 2021-0 Yes [id number] 40mg Take 1 [facility] 40 mg EC 4-04 tablet by [facility] of tablet 00:00: mouth [place] 00 daily. [facility] pantoprazol Yes [id number] 40mg Take 1 [facility] 40 mg EC 4-04 tablet by [facility] of tablet 00:00: mouth [place] 00 daily. [facility] pantoprazol 2021- Yes [id number] 40mg Take 1 [facility] 40 mg EC 4-04 tablet by [facility]y of tablet 00:00: mouth [place] 00 daily. [facility] pantoprazol 2021-0 Yes [id number] 40mg Take 1 [facility] 40 mg EC 4-04 tablet by [facility]y of tablet 00:00: mouth [place] 00 daily. [facility] pantoprazol 2021-0 Yes [id number] 40mg Take 1 [facility] 40 mg EC 4-04 tablet by [facility]y of tablet 00:00: mouth [place] 00 daily. [facility] pantoprazol 2021-0 Yes [id number] 40mg Take 1 [facility] 40 mg EC 4-04 tablet by [facility] of tablet 00:00: mouth [place] 00 daily. [facility] pantoprazol 2021-0 Yes [id number] 40mg Take 1 [facility] 40 mg EC 4-04 tablet by [facility]y of tablet 00:00: mouth [place] 00 daily. [facility] pantoprazol 2021-0 Yes [id number] 40mg Take 1 [facility] 40 mg EC 4-04 tablet by ity of tablet 00:00: mouth [place] 00 daily. [facility] pantoprazol 2021-0 Yes [id number] 40mg Take 1 [facility] 40 mg EC 4-04 tablet by [facility]y of tablet 00:00: mouth [place] 00 daily. [facility] pantoprazol 2021-0 Yes [id number] 40mg Take 1 [facility] 40 mg EC 4-04 tablet by [facility]y of tablet 00:00: mouth [place] 00 daily. [facility] pantoprazol 2021-0 2021- No [id number] 40mg Take 1 [facility] 40 mg EC 4-04 -16 tablet by ity of tablet 00:00: 00:00 mouth [place] 00 :00 daily. [facility] pantoprazol 2021-0 2021- No [id number] 40mg Take 1 [facility] 40 mg EC 4-04 -16 tablet by ity of tablet 00:00: 00:00 mouth [place] 00 :00 daily. [facility] Blood-Gluco 2021-0 Yes [id number] Use twice [facility] se Meter 3-08 a day for ity of (ONETOUCH 00:00: [place] VERIO FLEX 00 E11.65 Medical START) Kit [facility] Blood-Gluco 2021-0 Yes [id number] Use twice [facility] se Meter 3-08 a day for ity of (ONETOUCH 00:00: [place] VERIO FLEX 00 E11.65 Medical START) Kit [facility] Blood-Gluco 2022-0 Yes [id number] Use twice [facility] se M[facility] 3-08 a day for ity of (ONETOUCH 00:00: [place] VERIO FLEX [facility] START) Kit [facility] Blood-Gluco 2022-0 Yes [id number] Use twice [facility] se M[facility] 3-08 a day for ity of (ONETOUCH 00:00: [place] VERIO FLEX [facility] START) Kit [facility] Blood-Gluco 2022-0 Yes [id number] Use twice [facility] se [facility] 3-08 a day for ity of (ONETOUCH 00:00: [place] VERIO FLEX [facility] START) Kit [facility] Blood-Gluco 2022-0 Yes [id number] Use twice [facility] se [facility] 3-08 a day for ity of (ONETOUCH 00:00: [place] VERIO FLEX Medical START) Kit [facility] Blood-Gluco 2022-0 Yes [id number] Use twice [facility] se [facility] 3-08 a day for ity of (ONETOUCH 00:00: [place] VERIO FLEX Medical START) Kit [facility] Blood-Gluco 2022-0 Yes [id number] Use twice [facility] se [facility] 3-08 a day for ity of (ONETOUCH 00:00: [place] VERIO FLEX Medical START) Kit [facility] Blood-Gluco 2022-0 Yes [id number] Use twice [facility] se [facility] 3-08 a day for ity of (ONETOUCH 00:00: [place] VERIO FLEX Medical START) Kit [facility] Blood-Gluco 2022-0 Yes [id number] Use twice [facility] 3-08 a day for ity of (ONETOUCH 00:00: [place] VERIO FLEX Medical START) Kit [facility] Blood-Gluco 2022-0 Yes [id number] Use twice [facility] se [facility] 3-08 a day for ity of (ONETOUCH 00:00: [place] VERIO FLEX Medical START) Kit [facility] Blood-Gluco 2022-0 Yes [id number] Use twice [facility] se [facility] 3-08 a day for ity of (ONETOUCH 00:00: ICD [place] VERIO FLEX Medical START) Kit [facility] Blood-Gluco 2022-0 Yes [id number] Use twice [facility] se [facility] 3-08 a day for ity of (ONETOUCH 00:00: [place] VERIO FLEX Medical START) Kit [facility] Blood-Gluco 2022-0 Yes [id number] Use twice [facility] se M[facility] 3-08 a day for ity of (ONETOUCH 00:00: [place] VERIO FLEX Medical START) Kit [facility] Blood-Gluco 2022-0 Yes [id number] Use twice [facility] se M[facility] 3-08 a day for ity of (ONETOUCH 00:00: ICD [place] VERIO FLEX Medical START) Kit [facility] Blood-Gluco 2022-0 Yes [id number] Use twice [facility] se M[facility] 3-08 a day for ity of (ONETOUCH 00:00: ICD CODE [place] VERIO FLEX Medical START) Kit [facility] Blood-Gluco 2022-0 Yes [id number] Use twice [facility] se [facility] 3-08 a day for ity of (ONETOUCH 00:00: ICD [place] VERIO FLEX Medical START) Kit [facility] Blood-Gluco 2022-0 Yes [id number] Use twice [facility] se [facility] 3-08 a day for ity of (ONETOUCH 00:00: ICD [place] VERIO FLEX Medical START) Kit [facility] Blood-Gluco 2022-0 Yes [id number] Use twice [facility] se M[facility] 3-08 a day for ity of (ONETOUCH 00:00: ICD CODE [place] VERIO FLEX Medical START) Kit [facility] Blood-Gluco 2022-0 Yes [id number] Use twice [facility] se M[facility] 3-08 a day for ity of (ONETOUCH 00:00: ICD [place] VERIO FLEX Medical START) Kit [facility] Blood-Gluco 2022-0 Yes [id number] Use twice [facility] se M[facility] 3-08 a day for ity of (ONETOUCH 00:00: [place] VERIO FLEX Medical START) Kit [facility] Blood-Gluco 2022-0 Yes [id number] Use twice [facility] se M[facility] 3-08 a day for ity of (ONETOUCH 00:00: ICD CODE [place] VERIO FLEX E11.65 Medical START) Kit Branch Blood-Gluco 2022-0 Yes [id number] Use twice [facility] se M[facility] 3-08 a day for ity of (ONETOUCH 00:00: ICD CODE [place] VERIO FLEX E11. Medical START) Kit Branch Blood-Gluco 2022-0 Yes [id number] Use twice [facility] se M[facility] 3-08 a day for ity of (ONETOUCH 00:00: ICD CODE [place] VERIO FLEX E11. Medical START) Kit Branch Blood-Gluco 2022-0 Yes [id number] Use twice [facility] se M[facility] 3-08 a day for ity of (ONETOUCH 00:00: ICD CODE [place] VERIO FLEX E11.65 Medical START) Kit Branch Blood-Gluco 2022-0 Yes [id number] Use twice [facility] se M[facility] 3-08 a day for ity of (ONETOUCH 00:00: ICD [place] VERIO FLEX Medical START) Kit [facility] Blood-Gluco 2022-0 Yes [id number] Use twice [facility] se M[facility] 3-08 a day for ity of (ONETOUCH 00:00: ICD CODE [place] VERIO FLEX E11.65 Medical START) Kit Branch Blood-Gluco 2022-0 Yes [id number] Use twice [facility] se M[facility] 3-08 a day for ity of (ONETOUCH 00:00: ICD CODE [place] VERIO FLEX E11.65 Medical START) Kit Branch Blood-Gluco 2022-0 Yes [id number] Use twice [facility] se M[facility] 3-08 a day for ity of (ONETOUCH 00:00: ICD CODE [place] VERIO FLEX E11.65 Medical START) Kit Branch Blood-Gluco 2022-0 Yes [id number] Use twice [facility] se Meter 3-08 a day for ity of (ONETOUCH 00:00: ICD CODE [place] VERIO FLEX E11.65 Medical START) Kit Branch Blood-Gluco 2022-0 Yes [id number] Use twice [facility] se Meter 3-08 a day for ity of (ONETOUCH 00:00: ICD CODE [place] VERIO FLEX Medical START) Kit [facility] Blood-Gluco 2-0 Yes [id number] Use twice [facility] se Meter 3-08 a day for ity of (ONETOUCH 00:00: ICD CODE [place] VERIO FLEX Medical START) Kit [facility] Blood-Gluco 2-0 Yes [id number] Use twice [facility] se Meter 3-08 a day for ity of (ONETOUCH 00:00: ICD CODE [place] VERIO FLEX Medical START) Kit [facility] Blood-Gluco 2021-0 Yes [id number] Use twice [facility] se Meter 3-08 a day for ity of (ONETOUCH 00:00: ICD CODE [place] VERIO FLEX Medical START) Kit [facility] Blood-Gluco 2021-0 Yes [id number] Use twice [facility] se Meter 3-08 a day for ity of (ONETOUCH 00:00: ICD CODE [place] VERIO FLEX Medical START) Kit [facility] Blood-Gluco 2021-0 Yes [id number] Use twice [facility] se Meter 3-08 a day for ity of (ONETOUCH 00:00: [place] VERIO FLEX Medical START) [facility] Blood-Gluco 2021-0 2021- No [id number] Use twice [facility] se Meter 3-08 -22 a day for ity o f (ONETOUCH 00:00: 00:00 ICD CODE [place] VERIO FLEX 00 :00 Medical START) Kit Branch Blood-Gluco 2021-0 2021- No [id number] Use twice [facility] se Meter 3-08 -22 a day for ity o f (ONETOUCH 00:00: 00:00 ICD CODE [place] VERIO FLEX 00 :00 Medical START) Kit Branch Blood-Gluco 2021-0 2021- No [id number] Use twice [facility] se Meter 3-08 -22 a day for ity o f (ONETOUCH 00:00: 00:00 ICD CODE [place] VERIO FLEX 00 :00 Medical START) Kit Branch mirabegron 2021-0 Yes [id number] 50mg Take 1 [facility] (MYRBETRIQ) 1-18 tablet by ity of 50 mg 00:00: mouth [place] tablet 00 daily. [facility] mirabegron 2021-0 Yes [id number] 50mg Take 1 [facility] (MYRBETRIQ) 1-18 tablet by ity of 50 mg 00:00: mouth [place] tablet 00 daily. [facility] mirabegron 2021-0 Yes [id number] 50mg Take 1 [facility] (MYRBETRIQ) 1-18 tablet by ity of 50 mg 00:00: mouth [place] tablet 00 daily. [facility] mirabegron 0 Yes [id number] 50mg Take 1 [facility] (MYRBETRIQ) 1-18 tablet by ity of 50 mg 00:00: mouth [place] tablet 00 daily. [facility] mirabegron 0 Yes [id number] 50mg Take 1 [facility] (MYRBETRIQ) 1-18 tablet by ity of 50 mg 00:00: mouth [place] tablet 00 daily. [facility] mirabegron 0 Yes [id number] 50mg Take 1 [facility] (MYRBETRIQ) 1-18 tablet by ity of 50 mg 00:00: mouth [place] tablet 00 daily. [facility] mirabegron 0 Yes [id number] 50mg Take 1 [facility] (MYRBETRIQ) 1-18 tablet by ity of 50 mg 00:00: mouth [place] tablet 00 daily. [facility] mirabegron 0 Yes [id number] 50mg Take 1 [facility] (MYRBETRIQ) 1-18 tablet by ity of 50 mg 00:00: mouth [place] tablet 00 daily. [facility] mirabegron 2021-0 Yes [id number] 50mg Take 1 [facility] (MYRBETRIQ) 1-18 tablet by ity of 50 mg 00:00: mouth [place] tablet 00 daily. [facility] mirabegron 2021-0 Yes [id number] 50mg Take 1 [facility] (MYRBETRIQ) 1-18 tablet by ity of 50 mg 00:00: mouth [place] tablet 00 daily. [facility] mirabegron 2021-0 Yes [id number] 50mg Take 1 [facility] (MYRBETRIQ) 1-18 tablet by ity of 50 mg 00:00: mouth [place] tablet 00 daily. [facility] mirabegron 2021-0 Yes [id number] 50mg Take 1 [facility] (MYRBETRIQ) 1-18 tablet by ity of 50 mg 00:00: mouth [place] tablet 00 daily. [facility] mirabegron 2021-0 Yes [id number] 50mg Take 1 [facility] (MYRBETRIQ) 1-18 tablet by ity of 50 mg 00:00: mouth [place] tablet 00 daily. [facility] mirabegron 2021-0 Yes [id number] 50mg Take 1 [facility] (MYRBETRIQ) 1-18 tablet by ity of 50 mg 00:00: mouth [place] tablet 00 daily. [facility] Branch mirabegron 2021-0 Yes [id number] 50mg Take 1 Univers (MYRBETRIQ) 1-18 tablet by ity of 50 mg 00:00: mouth [place] tablet 00 daily. [facility] Branch mirabegron 0 Yes [id number] 50mg Take 1 [facility] (MYRBETRIQ) 1-18 tablet by ity of 50 mg 00:00: mouth [place] tablet 00 daily. [facility] mirabegron 0 Yes [id number] 50mg Take 1 [facility] (MYRBETRIQ) 1-18 tablet by ity of 50 mg 00:00: mouth [place] tablet 00 daily. [facility] mirabegron 0 Yes [id number] 50mg Take 1 [facility] (MYRBETRIQ) 1-18 tablet by ity of 50 mg 00:00: mouth [place] tablet 00 daily. [facility] mirabegron 0 Yes [id number] 50mg Take 1 [facility] (MYRBETRIQ) 1-18 tablet by ity of 50 mg 00:00: mouth [place] tablet 00 daily. [facility] mirabegron 0 Yes [id number] 50mg Take 1 [facility] (MYRBETRIQ) 1-18 tablet by ity of 50 mg 00:00: mouth [place] tablet 00 daily. [facility] Branch mirabegron 0 Yes [id number] 50mg Take 1 [facility] (MYRBETRIQ) 1-18 tablet by ity of 50 mg 00:00: mouth [place] tablet 00 daily. [facility] mirabegron 0 Yes [id number] 50mg Take 1 [facility] (MYRBETRIQ) 1-18 tablet by ity of 50 mg 00:00: mouth [place] tablet 00 daily. [facility] mirabegron 2021-0 Yes [id number] 50mg Take 1 [facility] (MYRBETRIQ) 1-18 tablet by ity of 50 mg 00:00: mouth [place] tablet 00 daily. [facility] mirabegron 0 Yes [id number] 50mg Take 1 [facility] (MYRBETRIQ) 1-18 tablet by ity of 50 mg 00:00: mouth [place] tablet 00 daily. [facility] mirabegron 0 Yes [id number] 50mg Take 1 [facility] (MYRBETRIQ) 1-18 tablet by ity of 50 mg 00:00: mouth [place] tablet 00 daily. [facility] mirabegron 0 Yes [id number] 50mg Take 1 [facility] (MYRBETRIQ) 1-18 tablet by ity of 50 mg 00:00: mouth [place] tablet 00 daily. [facility] mirabegron 0 Yes [id number] 50mg Take 1 [facility] (MYRBETRIQ) 1-18 tablet by ity of 50 mg 00:00: mouth [place] tablet 00 daily. [facility] mirabegron 0 Yes [id number] 50mg Take 1 [facility] (MYRBETRIQ) 1-18 tablet by ity of 50 mg 00:00: mouth [place] tablet 00 daily. [facility] mirabegron 0 Yes [id number] 50mg Take 1 [facility] (MYRBETRIQ) 1-18 tablet by ity of 50 mg 00:00: mouth [place] tablet 00 daily. [facility] mirabegron 0 Yes [id number] 50mg Take 1 [facility] (MYRBETRIQ) 1-18 tablet by ity of 50 mg 00:00: mouth [place] tablet 00 daily. [facility] mirabegron 0 Yes [id number] 50mg Take 1 [facility] (MYRBETRIQ) 1-18 tablet by ity of 50 mg 00:00: mouth [place] tablet 00 daily. [facility] mirabegron 0 Yes [id number] 50mg Take 1 [facility] (MYRBETRIQ) 1-18 tablet by ity of 50 mg 00:00: mouth [place] tablet 00 daily. [facility] mirabegron 0 Yes [id number] 50mg Take 1 [facility] (MYRBETRIQ) 1-18 tablet by ity of 50 mg 00:00: mouth [place] tablet 00 daily. [facility] mirabegron 0 Yes [id number] 50mg Take 1 [facility] (MYRBETRIQ) 1-18 tablet by ity of 50 mg 00:00: mouth [place] tablet 00 daily. [facility] mirabegron 0 Yes [id number] 50mg Take 1 [facility] (MYRBETRIQ) 1-18 tablet by ity of 50 mg 00:00: mouth [place] tablet 00 daily. [facility] Branch mirabegron 0 Yes [id number] 50mg Take 1 [facility] (MYRBETRIQ) 1-18 tablet by ity of 50 mg 00:00: mouth [place] tablet 00 daily. [facility] mirabegron 0 Yes [id number] 50mg Take 1 [facility] (MYRBETRIQ) 1-18 tablet by ity of 50 mg 00:00: mouth [place] tablet 00 daily. [facility] mirabegron 0 Yes [id number] 50mg Take 1 [facility] (MYRBETRIQ) 1-18 tablet by ity of 50 mg 00:00: mouth [place] tablet 00 daily. [facility] mirabegron 0 Yes [id number] 50mg Take 1 [facility] (MYRBETRIQ) 1-18 tablet by ity of 50 mg 00:00: mouth [place] tablet 00 daily. [facility] mirabegron Yes [id number] 50mg Take 1 [facility] (MYRBETRIQ) 1-18 tablet by ity of 50 mg 00:00: mouth [place] tablet 00 daily. [facility] mirabegron Yes [id number] 50mg Take 1 [facility] (MYRBETRIQ) 1-18 tablet by ity of 50 mg 00:00: mouth [place] tablet 00 daily. [facility] mirabegron 0 Yes [id number] 50mg Take 1 [facility] (MYRBETRIQ) 1-18 tablet by ity of 50 mg 00:00: mouth [place] tablet 00 daily. [facility] mirabegron 0 Yes [id number] 50mg Take 1 [facility] (MYRBETRIQ) 1-18 tablet by ity of 50 mg 00:00: mouth [place] tablet 00 daily. [facility] mirabegron 0 Yes [id number] 50mg Take 1 [facility] (MYRBETRIQ) 1-18 tablet by ity of 50 mg 00:00: mouth [place] tablet 00 daily. [facility] mirabegron 0 Yes [id number] 50mg Take 1 [facility] (MYRBETRIQ) 1-18 tablet by ity of 50 mg 00:00: mouth [place] tablet 00 daily. [facility] mirabegron 0 Yes [id number] 50mg Take 1 [facility] (MYRBETRIQ) 1-18 tablet by ity of 50 mg 00:00: mouth [place] tablet 00 daily. [facility] mirabegron 0 Yes [id number] 50mg Take 1 [facility] (MYRBETRIQ) 1-18 tablet by ity of 50 mg 00:00: mouth [place] tablet 00 daily. [facility] mirabegron 0 Yes [id number] 50mg Take 1 [facility] (MYRBETRIQ) 1-18 tablet by ity of 50 mg 00:00: mouth [place] tablet 00 daily. [facility] mirabegron 2021- No [id number] 50mg Take 1 [facility] (MYRBETRIQ) 1-18 10-13 tablet by it y of 50 mg 00:00: 00:00 mouth [place] tablet 00 :00 daily. [facility] semaglutide 2020-09 Yes [id number] Inject Univers (OZEMPIC) 2-01 0.25 mg ity of 0.25 mg or 00:00: under the [place] 0.5 mg(2 00 skin Medical mg/1.5 mL) weekly. Branch PnIj semaglutide 2020-09 Yes [id number] Inject [facility] (OZEMPIC) 2-01 0.25 mg ity of 0.25 mg or 00:00: under the [place] 0.5 mg(2 00 skin Medical mg/1.5 mL) weekly. Branch PnIj semaglutide 2020-09 Yes [id number] Inject [facility] (OZEMPIC) 2-01 0.25 mg ity of 0.25 mg or 00:00: under the [place] 0.5 mg(2 00 skin Medical mg/1.5 mL) weekly. Branch PnIj semaglutide 2020-09 Yes [id number] Inject [facility] (OZEMPIC) 2-01 0.25 mg ity of 0.25 mg or 00:00: under the [place] 0.5 mg(2 00 skin Medical mg/1.5 mL) weekly. Branch PnIj semaglutide 2020-09 Yes [id number] Inject [facility] (OZEMPIC) 2-01 0.25 mg ity of 0.25 mg or 00:00: under the [place] 0.5 mg(2 00 skin Medical mg/1.5 mL) weekly. Branch PnIj semaglutide 2020-09 Yes [id number] Inject [facility] (OZEMPIC) 2-01 0.25 mg ity of 0.25 mg or 00:00: under the [place] 0.5 mg(2 00 skin Medical mg/1.5 mL) weekly. Branch PnIj semaglutide 2020-09 Yes [id number] Inject [facility] (OZEMPIC) 2-01 0.25 mg ity of 0.25 mg or 00:00: under the [place] 0.5 mg(2 00 skin Medical mg/1.5 mL) weekly. Branch PnIj semaglutide 2020-09 Yes [id number] Inject [facility] (OZEMPIC) 2-01 0.25 mg ity of 0.25 mg or 00:00: under the [place] 0.5 mg(2 00 skin Medical mg/1.5 mL) weekly. Branch PnIj semaglutide 2020-09 Yes [id number] Inject [facility] (OZEMPIC) 2-01 0.25 mg ity of 0.25 mg or 00:00: under the [place] 0.5 mg(2 00 skin Medical mg/1.5 mL) weekly. Branch PnIj semaglutide 2020-09 Yes [id number] Inject [facility] (OZEMPIC) 2-01 0.25 mg ity of 0.25 mg or 00:00: under the [place] 0.5 mg(2 00 skin Medical mg/1.5 mL) weekly. Branch PnIj semaglutide 2020-09 Yes [id number] Inject [facility] (OZEMPIC) 2-01 0.25 mg ity of 0.25 mg or 00:00: under the [place] 0.5 mg(2 00 skin Medical mg/1.5 mL) weekly. Branch PnIj semaglutide 2020-09 Yes [id number] Inject [facility] (OZEMPIC) 2-01 0.25 mg ity of 0.25 mg or 00:00: under the [place] 0.5 mg(2 00 skin Medical mg/1.5 mL) weekly. Branch PnIj semaglutide 2020-09 Yes [id number] Inject [facility] (OZEMPIC) 2-01 0.25 mg ity of 0.25 mg or 00:00: under the [place] 0.5 mg(2 00 skin Medical mg/1.5 mL) weekly. Branch PnIj semaglutide 2020-09 Yes [id number] Inject [facility] (OZEMPIC) 2-01 0.25 mg ity of 0.25 mg or 00:00: under the [place] 0.5 mg(2 00 skin Medical mg/1.5 mL) weekly. Branch PnIj semaglutide 2020-09 Yes [id number] Inject [facility] (OZEMPIC) 2-01 0.25 mg ity of 0.25 mg or 00:00: under the [place] 0.5 mg(2 00 skin Medical mg/1.5 mL) weekly. Branch PnIj semaglutide 2020-09 Yes [id number] Inject [facility] (OZEMPIC) 2-01 0.25 mg ity of 0.25 mg or 00:00: under the [place] 0.5 mg(2 00 skin Medical mg/1.5 mL) weekly. Branch PnIj semaglutide 2020-09 Yes [id number] Inject [facility] (OZEMPIC) 2-01 0.25 mg ity of 0.25 mg or 00:00: under the [place] 0.5 mg(2 00 skin Medical mg/1.5 mL) weekly. Branch PnIj semaglutide 2020-09 Yes [id number] Inject [facility] (OZEMPIC) 2-01 0.25 mg ity of 0.25 mg or 00:00: under the [place] 0.5 mg(2 00 skin Medical mg/1.5 mL) weekly. Branch PnIj semaglutide 2020-09 Yes [id number] Inject [facility] (OZEMPIC) 2-01 0.25 mg ity of 0.25 mg or 00:00: under the [place] 0.5 mg(2 00 skin Medical mg/1.5 mL) weekly. Branch PnIj semaglutide 2020-09 Yes [id number] Inject [facility] (OZEMPIC) 2-01 0.25 mg ity of 0.25 mg or 00:00: under the [place] 0.5 mg(2 00 skin Medical mg/1.5 mL) weekly. Branch PnIj semaglutide 2020-09 Yes [id number] Inject [facility] (OZEMPIC) 2-01 0.25 mg ity of 0.25 mg or 00:00: under the [place] 0.5 mg(2 00 skin Medical mg/1.5 mL) weekly. Branch PnIj semaglutide 2020-09 Yes [id number] Inject [facility] (OZEMPIC) 2-01 0.25 mg ity of 0.25 mg or 00:00: under the [place] 0.5 mg(2 00 skin Medical mg/1.5 mL) weekly. Branch PnIj semaglutide 2020-09 Yes [id number] Inject [facility] (OZEMPIC) 2-01 0.25 mg ity of 0.25 mg or 00:00: under the [place] 0.5 mg(2 00 skin Medical mg/1.5 mL) weekly. Branch PnIj semaglutide 2020-09 Yes [id number] Inject [facility] (OZEMPIC) 2-01 0.25 mg ity of 0.25 mg or 00:00: under the [place] 0.5 mg(2 00 skin Medical mg/1.5 mL) weekly. Branch PnIj semaglutide 2020-09 Yes [id number] Inject [facility] (OZEMPIC) 2-01 0.25 mg ity of 0.25 mg or 00:00: under the [place] 0.5 mg(2 00 skin Medical mg/1.5 mL) weekly. Branch PnIj semaglutide 2020-09 Yes [id number] Inject [facility] (OZEMPIC) 2-01 0.25 mg ity of 0.25 mg or 00:00: under the [place] 0.5 mg(2 00 skin Medical mg/1.5 mL) weekly. Branch PnIj semaglutide 2020-09 Yes [id number] Inject [facility] (OZEMPIC) 2-01 0.25 mg ity of 0.25 mg or 00:00: under the [place] 0.5 mg(2 00 skin Medical mg/1.5 mL) weekly. Branch PnIj semaglutide 2020-09 Yes [id number] Inject [facility] (OZEMPIC) 2-01 0.25 mg ity of 0.25 mg or 00:00: under the [place] 0.5 mg(2 00 skin Medical mg/1.5 mL) weekly. Branch PnIj semaglutide 2020-09 Yes [id number] Inject [facility] (OZEMPIC) 2-01 0.25 mg ity of 0.25 mg or 00:00: under the [place] 0.5 mg(2 00 skin Medical mg/1.5 mL) weekly. Branch PnIj semaglutide 2020-09 Yes [id number] Inject [facility] (OZEMPIC) 2-01 0.25 mg ity of 0.25 mg or 00:00: under the [place] 0.5 mg(2 00 skin Medical mg/1.5 mL) weekly. Branch PnIj semaglutide 2020-09 Yes [id number] Inject [facility] (OZEMPIC) 2-01 0.25 mg ity of 0.25 mg or 00:00: under the [place] 0.5 mg(2 00 skin Medical mg/1.5 mL) weekly. Branch PnIj semaglutide 2020-09 Yes [id number] Inject [facility] (OZEMPIC) 2-01 0.25 mg ity of 0.25 mg or 00:00: under the [place] 0.5 mg(2 00 skin Medical mg/1.5 mL) weekly. Branch PnIj semaglutide 2020-09 Yes [id number] Inject [facility] (OZEMPIC) 2-01 0.25 mg ity of 0.25 mg or 00:00: under the [place] 0.5 mg(2 00 skin Medical mg/1.5 mL) weekly. Branch PnIj semaglutide 2020-09 Yes [id number] Inject [facility] (OZEMPIC) 2-01 0.25 mg ity of 0.25 mg or 00:00: under the [place] 0.5 mg(2 00 skin [facility] mg/1.5 mL) weekly. Branch PnIj semaglutide 2020-09 Yes [id number] Inject [facility] (OZEMPIC) 2-01 0.25 mg ity of 0.25 mg or 00:00: under the [place] 0.5 mg(2 00 skin Medical mg/1.5 mL) weekly. Branch PnIj semaglutide 2020-09 Yes [id number] Inject [facility] (OZEMPIC) 2-01 0.25 mg ity of 0.25 mg or 00:00: under the [place] 0.5 mg(2 00 skin [facility] mg/1.5 mL) weekly. Branch PnIj semaglutide 2020-09 Yes [id number] Inject [facility] (OZEMPIC) 2-01 0.25 mg ity of 0.25 mg or 00:00: under the [place] 0.5 mg(2 00 skin [facility] mg/1.5 mL) weekly. Branch PnIj semaglutide 2020-09 Yes [id number] Inject [facility] (OZEMPIC) 2-01 0.25 mg ity of 0.25 mg or 00:00: under the [place] 0.5 mg(2 00 skin Medical mg/1.5 mL) weekly. Branch [facility] semaglutide 2020-09 Yes [id number] Inject [facility] (OZEMPIC) 2-01 0.25 mg ity of 0.25 mg or 00:00: under the [place] 0.5 mg(2 00 skin Medical mg/1.5 mL) weekly. [facility] semaglutide 2020-09 Yes [id number] Inject [facility] (OZEMPIC) 2-01 0.25 mg ity of 0.25 mg or 00:00: under the [place] 0.5 mg(2 00 skin Medical mg/1.5 mL) weekly. [facility] semaglutide 2020-09 Yes [id number] Inject [facility] (OZEMPIC) 2-01 0.25 mg ity of 0.25 mg or 00:00: under the [place] 0.5 mg(2 00 skin Medical mg/1.5 mL) weekly. [facility] semaglutide 2020-09 Yes [id number] Inject [facility] (OZEMPIC) 2-01 0.25 mg ity of 0.25 mg or 00:00: under the [place] 0.5 mg(2 00 skin Medical mg/1.5 mL) weekly. Branch PnIj semaglutide 2020-09 Yes [id number] Inject [facility] (OZEMPIC) 2-01 0.25 mg ity of 0.25 mg or 00:00: under the [place] 0.5 mg(2 00 skin Medical mg/1.5 mL) weekly. [facility] semaglutide 2020-09 Yes [id number] Inject [facility] (OZEMPIC) 2-01 0.25 mg ity of 0.25 mg or 00:00: under the [place] 0.5 mg(2 00 skin Medical mg/1.5 mL) weekly. [facility] semaglutide 2020-09 Yes [id number] Inject [facility] (OZEMPIC) 2-01 0.25 mg ity of 0.25 mg or 00:00: under the [place] 0.5 mg(2 00 skin Medical mg/1.5 mL) weekly. [facility] semaglutide 2020-09 Yes [id number] Inject [facility] (OZEMPIC) 2- 0.25 mg ity of 0.25 mg or 00:00: under the [place] 0.5 mg(2 00 skin Medical mg/1.5 mL) weekly. [facility] semaglutide 2020-09 Yes [id number] Inject [facility] (OZEMPIC) 2-01 0.25 mg ity of 0.25 mg or 00:00: under the [place] 0.5 mg(2 00 skin Medical mg/1.5 mL) weekly. [facility] semaglutide 2020-09 Yes [id number] Inject [facility] (OZEMPIC) 2- 0.25 mg ity of 0.25 mg or 00:00: under the [place] 0.5 mg(2 00 skin Medical mg/1.5 mL) weekly. [facility] semaglutide 2020-09- No [id number] Inject [facility] (OZEMPIC) 2- 10-13 0.25 mg ity of 0.25 mg or 00:00: 00:00 under the [place] 0.5 mg(2 00 :00 skin Medical mg/1.5 mL) weekly. [place] [facility] metformin 2020-09- No [id number] 500mg Take 1 [facility] ER 500 mg 10-27 tablet by ity of 24 hr 00:00: 00:00 mouth [place] tablet 00 :00 daily with Medical breakfast. Branch STOP REGULAR METFORMIN. metformin 2020-09- No [id number] 500mg Take 1 [facility] ER 500 mg 10-27 tablet by ity of 24 hr 00:00: 00:00 mouth [place] tablet 00 :00 daily with Medical breakfast. Branch STOP REGULAR METFORMIN. cyanocobala 2020-09 Yes [id number] 1000ug 1 mL by [facility] min 1,000 1-09 Intramuscu ity of mcg/mL 00:00: lar route [place] injection 00 every 2 Medical (two) Branch weeks. levothyroxi 2020-09 Yes [id number] 50ug Take 1 [facility] ne 50 mcg 1-09 tablet by ity o f tablet 00:00: mouth [place] 00 every Medical morning. Branch fluticasone 2020-09 Yes [id number] 2{puff} Inhale 2 [facility] propionate 1-09 Puffs ity of (FLOVENT 00:00: every 12 [place] HFA) 110 00 (twelve) Medical mcg/actuati hours. Branch on inhaler Rinse mouth after each use. levalbutero 2020-09 Yes [id number] .63mg Inhale [facility] l 0.63 mg/3 1-09 0.63 mg 3 ity of mL 00:00: (three) [place] nebulizer 00 times Medical solution daily as Branch needed for Wheezing or Shortness of Breath. losartan 50 2020-09 Yes [id number] 50mg Take 1 [facility] mg tablet 1-09 tablet by ity o f 00:00: mouth 2 [place] 00 (two) Medical times Branch daily. clotrimazol 2020-09 Yes [id number] Apply to [facility] e-betametha -09 area(s) 2 ity of sone cream 00:00: (two) [place] 00 times Medical daily. Branch cyclobenzap 2020-09 Yes [id number] TAKE 1 [facility] rine 5 mg 1-09 TABLET BY ity o f tablet 00:00: MOUTH [place] 00 EVERY 8 Medical HOURS Branch NEEDED econazole 2020-09 Yes [id number] Apply to [facility] nitrate 1 % 1-09 area(s) 2 ity of cream 00:00: (two) [place] 00 times Medical daily. Branch albuterol 2020-09 Yes [id number] 2{puff} Inhale 2 [facility] (PROAIR 1-09 Puffs ity of HFA) 90 00:00: every 6 [place] mcg/actuati 00 (six) Medical on inhaler hours as Branc h needed for Wheezing or Shortness of Breath. triamcinolo 2020-09 Yes [id number] Apply to [facility] ne 0.025 % 1-09 area(s) 3 ity of ointment 00:00: (three) [place] 00 times Medical daily. For Branch itching diltiazem 2020-09 Yes [id number] 120mg Take 1 [facility] (CARTIA XT) 1-09 capsule by it y of 120 mg 24 00:00: mouth 2 [place] hr capsule 00 (two) Medical times Branch daily. cyanocobala 2020-09 Yes [id number] 1000ug 1 mL by [facility] min 1,000 -09 Intramuscu ity of mcg/mL 00:00: lar route [place] injection 00 every 2 Medical (two) Branch weeks. levothyroxi 2020-09 Yes [id number] 50ug Take 1 [facility] ne 50 mcg -09 tablet by ity o f tablet 00:00: mouth [place] 00 every Medical morning. Branch fluticasone 2020-09 Yes [id number] 2{puff} Inhale 2 [facility] propionate 1-09 Puffs ity of (FLOVENT 00:00: every 12 [place] HFA) 110 00 (twelve) Medical mcg/actuati hours. Branch on inhaler Rinse mouth after each use. levalbutero 2020-09 Yes [id number] .63mg Inhale [facility] l 0.63 mg/3 -09 0.63 mg 3 ity of mL 00:00: (three) [place] nebulizer 00 times Medical solution daily as Branch needed for Wheezing or Shortness of Breath. losartan 50 2020-09 Yes [id number] 50mg Take 1 [facility] mg tablet 09 tablet by ity o f 00:00: mouth 2 [place] 00 (two) Medical times Branch daily. clotrimazol 2020-09 Yes [id number] Apply to [facility] e-betametha 10-04 area(s) 2 ity of sone cream 00:00: (two) [place] 00 times Medical daily. Branch cyclobenzap 2020-09 Yes [id number] TAKE 1 [facility] rine 5 mg 1-09 TABLET BY ity o f tablet 00:00: MOUTH [place] 00 EVERY 8 Medical HOURS Branch NEEDED econazole 2020-09 Yes [id number] Apply to [facility] nitrate 1 % 09 area(s) 2 ity of cream 00:00: (two) [place] 00 times Medical daily. Branch albuterol 2020-09 Yes [id number] 2{puff} Inhale 2 [facility] (PROAIR 1-09 Puffs ity of HFA) 90 00:00: every 6 [place] mcg/actuati 00 (six) Medical on inhaler hours as Branc h needed for Wheezing or Shortness of Breath. triamcinolo 2020-09 Yes [id number] Apply to [facility] ne 0.025 % 1-09 area(s) 3 ity of ointment 00:00: (three) [place] 00 times Medical daily. For Branch itching diltiazem 2020-09 Yes [id number] 120mg Take 1 [facility] n[facility] (CARTIA XT) -09 capsule by it y of 120 mg 24 00:00: mouth 2 [place] hr capsule 00 (two) Medical times Branch daily. cyanocobala 2020-09 Yes [id number] 1000ug 1 mL by [facility] min 1,000 1-09 Intramuscu ity of mcg/mL 00:00: lar route [place] injection 00 every 2 Medical (two) Branch weeks. levothyroxi 2020-09 Yes [id number] 50ug Take 1 [facility] ne 50 mcg -09 tablet by ity o f tablet 00:00: mouth [place] 00 every Medical morning. Branch fluticasone 2020-09 Yes [id number] 2{puff} Inhale 2 [facility] propionate 1-09 Puffs ity of (FLOVENT 00:00: every 12 [place] HFA) 110 00 (twelve) Medical mcg/actuati hours. Branch on inhaler Rinse mouth after each use. levalbutero 2020-09 Yes [id number] .63mg Inhale [facility] l 0.63 mg/3 1-09 0.63 mg 3 ity of mL 00:00: (three) [place] nebulizer 00 times Medical solution daily as Branch needed for Wheezing or Shortness of Breath. losartan 50 2020-09 Yes [id number] 50mg Take 1 [facility] mg tablet -09 tablet by ity o f 00:00: mouth 2 [place] 00 (two) Medical times Branch daily. clotrimazol 2020-09 Yes [id number] Apply to [facility] e-betametha -09 area(s) 2 ity of sone cream 00:00: (two) [place] 00 times Medical daily. Branch cyclobenzap 2020-09 Yes [id number] TAKE 1 [facility] rine 5 mg 1-09 TABLET BY ity o f tablet 00:00: MOUTH [place] 00 EVERY 8 Medical HOURS Branch NEEDED econazole 2020-09 Yes [id number] Apply to [facility] nitrate 1 % -09 area(s) 2 ity of cream 00:00: (two) [place] 00 times Medical daily. Branch albuterol 2020-09 Yes [id number] 2{puff} Inhale 2 [facility] (PROAIR 1-09 Puffs ity of HFA) 90 00:00: every 6 [place] mcg/actuati 00 (six) Medical on inhaler hours as Branc h needed for Wheezing or Shortness of Breath. triamcinolo 2020-09 Yes [id number] Apply to [facility] ne 0.025 % -09 area(s) 3 ity of ointment 00:00: (three) [place] 00 times Medical daily. For Branch itching diltiazem 2020-09 Yes [id number] 120mg Take 1 [facility] n[facility] (CARTIA XT) 09 capsule by it y of 120 mg 24 00:00: mouth 2 [place] hr capsule 00 (two) Medical times Branch daily. cyanocobala 2020-09 Yes [id number] 1000ug 1 mL by [facility] min 1,000 1-09 Intramuscu ity of mcg/mL 00:00: lar route [place] injection 00 every 2 Medical (two) Branch weeks. levothyroxi 2020-09 Yes [id number] 50ug Take 1 [facility] ne 50 mcg -09 tablet by ity o f tablet 00:00: mouth [place] 00 every Medical morning. Branch fluticasone 2020-09 Yes [id number] 2{puff} Inhale 2 [facility] propionate 1-09 Puffs ity of (FLOVENT 00:00: every 12 [place] HFA) 110 00 (twelve) Medical mcg/actuati hours. Branch on inhaler Rinse mouth after each use. levalbutero 2020-09 Yes [id number] .63mg Inhale [facility] l 0.63 mg/3 1-09 0.63 mg 3 ity of mL 00:00: (three) [place] nebulizer 00 times Medical solution daily as Branch needed for Wheezing or Shortness of Breath. losartan 50 2020-09 Yes [id number] 50mg Take 1 [facility] mg tablet 1-09 tablet by ity o f 00:00: mouth 2 [place] 00 (two) Medical times Branch daily. clotrimazol 2020-09 Yes [id number] Apply to [facility] e-betametha -09 area(s) 2 ity of sone cream 00:00: (two) [place] 00 times Medical daily. Branch cyclobenzap 2020-09 Yes [id number] TAKE 1 [facility] rine 5 mg -09 TABLET BY ity o f tablet 00:00: MOUTH [place] 00 EVERY 8 Medical HOURS Branch NEEDED econazole 2020-09 Yes [id number] Apply to [facility] nitrate 1 % 09 area(s) 2 ity of cream 00:00: (two) [place] 00 times Medical daily. Branch albuterol 2020-09 Yes [id number] 2{puff} Inhale 2 [facility] (PROAIR 1-09 Puffs ity of HFA) 90 00:00: every 6 [place] mcg/actuati 00 (six) Medical on inhaler hours as Branc h needed for Wheezing or Shortness of Breath. triamcinolo 2020-09 Yes [id number] Apply to [facility] ne 0.025 % 10-04 area(s) 3 ity of ointment 00:00: (three) [place] 00 times Medical daily. For Branch itching diltiazem 2020-09 Yes [id number] 120mg Take 1 [facility] n[facility] (CARTIA XT) 09 capsule by it y of 120 mg 24 00:00: mouth 2 [place] hr capsule 00 (two) Medical times Branch daily. cyanocobala 2020-09 Yes [id number] 1000ug 1 mL by [facility] min 1,000 1-09 Intramuscu ity of mcg/mL 00:00: lar route [place] injection 00 every 2 Medical (two) Branch weeks. levothyroxi 2020-09 Yes [id number] 50ug Take 1 [facility] ne 50 mcg -09 tablet by ity o f tablet 00:00: mouth [place] 00 every Medical morning. Branch fluticasone 2020-09 Yes [id number] 2{puff} Inhale 2 [facility] propionate 1-09 Puffs ity of (FLOVENT 00:00: every 12 [place] HFA) 110 00 (twelve) Medical mcg/actuati hours. Branch on inhaler Rinse mouth after each use. levalbutero 2020-09 Yes [id number] .63mg Inhale [facility] l 0.63 mg/3 1-09 0.63 mg 3 ity of mL 00:00: (three) [place] nebulizer 00 times Medical solution daily as Branch needed for Wheezing or Shortness of Breath. clotrimazol 2020-09 Yes [id number] Apply to [facility] e-betametha 09 area(s) 2 ity of sone cream 00:00: (two) [place] 00 times Medical daily. Branch cyclobenzap 2020-09 Yes [id number] TAKE 1 [facility] rine 5 mg -09 TABLET BY ity o f tablet 00:00: MOUTH [place] 00 EVERY 8 Medical HOURS Branch NEEDED econazole 2020-09 Yes [id number] Apply to [facility] nitrate 1 % 09 area(s) 2 ity of cream 00:00: (two) [place] 00 times Medical daily. Branch albuterol 2020-09 Yes [id number] 2{puff} Inhale 2 [facility] (PROAIR 1-09 Puffs ity of HFA) 90 00:00: every 6 [place] mcg/actuati 00 (six) Medical on inhaler hours as Branc h needed for Wheezing or Shortness of Breath. triamcinolo 2020-09 Yes [id number] Apply to [facility] ne 0.025 % 10-04 area(s) 3 ity of ointment 00:00: (three) [place] 00 times Medical daily. For Branch itching cyanocobala 2020-09 Yes [id number] 1000ug 1 mL by [facility] min 1,000 1-09 Intramuscu ity of mcg/mL 00:00: lar route [place] injection 00 every 2 Medical (two) Branch weeks. levothyroxi 2020-09 Yes [id number] 50ug Take 1 [facility] ne 50 mcg 09 tablet by ity o f tablet 00:00: mouth [place] 00 every Medical morning. Branch fluticasone 2020-09 Yes [id number] 2{puff} Inhale 2 [facility] propionate 1-09 Puffs ity of (FLOVENT 00:00: every 12 [place] HFA) 110 00 (twelve) Medical mcg/actuati hours. Branch on inhaler Rinse mouth after each use. levalbutero 2020-09 Yes [id number] .63mg Inhale [facility] l 0.63 mg/3 1-09 0.63 mg 3 ity of mL 00:00: (three) [place] nebulizer 00 times Medical solution daily as Branch needed for Wheezing or Shortness of Breath. clotrimazol 2020-09 Yes [id number] Apply to [facility] e-betametha 10-04 area(s) 2 ity of sone cream 00:00: (two) [place] 00 times Medical daily. Branch cyclobenzap 2020-09 Yes [id number] TAKE 1 [facility] rine 5 mg -09 TABLET BY ity o f tablet 00:00: MOUTH [place] 00 EVERY 8 Medical HOURS Branch NEEDED econazole 2020-09 Yes [id number] Apply to [facility] nitrate 1 % 09 area(s) 2 ity of cream 00:00: (two) [place] 00 times Medical daily. Branch albuterol 2020-09 Yes [id number] 2{puff} Inhale 2 [facility] (PROAIR 1-09 Puffs ity of HFA) 90 00:00: every 6 [place] mcg/actuati 00 (six) Medical on inhaler hours as Branc h needed for Wheezing or Shortness of Breath. triamcinolo 2020-09 Yes [id number] Apply to [facility] ne 0.025 % 10-04 area(s) 3 ity of ointment 00:00: (three) [place] 00 times Medical daily. For Branch itching cyanocobala 2020-09 Yes [id number] 1000ug 1 mL by [facility] min 1,000 -09 Intramuscu ity of mcg/mL 00:00: lar route [place] injection 00 every 2 Medical (two) Branch weeks. levothyroxi 2020-09 Yes [id number] 50ug Take 1 [facility] ne 50 mcg 10-04 tablet by ity o f tablet 00:00: mouth [place] 00 every Medical morning. Branch fluticasone 2020-09 Yes [id number] 2{puff} Inhale 2 [facility] propionate 1-09 Puffs ity of (FLOVENT 00:00: every 12 [place] HFA) 110 00 (twelve) Medical mcg/actuati hours. Branch on inhaler Rinse mouth after each use. levalbutero 2020-09 Yes [id number] .63mg Inhale [facility] l 0.63 mg/3 1-09 0.63 mg 3 ity of mL 00:00: (three) [place] nebulizer 00 times Medical solution daily as Branch needed for Wheezing or Shortness of Breath. clotrimazol 2020-09 Yes [id number] Apply to [facility] e-betametha -09 area(s) 2 ity of sone cream 00:00: (two) [place] 00 times Medical daily. Branch cyclobenzap 2020-09 Yes [id number] TAKE 1 [facility] rine 5 mg 1-09 TABLET BY ity o f tablet 00:00: MOUTH [place] 00 EVERY 8 Medical HOURS Branch NEEDED econazole 2020-09 Yes [id number] Apply to [facility] nitrate 1 % -09 area(s) 2 ity of cream 00:00: (two) [place] 00 times Medical daily. Branch albuterol 2020-09 Yes [id number] 2{puff} Inhale 2 [facility] (PROAIR 1-09 Puffs ity of HFA) 90 00:00: every 6 [place] mcg/actuati 00 (six) Medical on inhaler hours as Branc h needed for Wheezing or Shortness of Breath. triamcinolo 2020-09 Yes [id number] Apply to [facility] ne 0.025 % 10-04 area(s) 3 ity of ointment 00:00: (three) [place] 00 times Medical daily. For Branch itching cyanocobala 2020-09 Yes [id number] 1000ug 1 mL by [facility] min 1,000 1-09 Intramuscu ity of mcg/mL 00:00: lar route [place] injection 00 every 2 Medical (two) Branch weeks. levothyroxi 2020-09 Yes [id number] 50ug Take 1 [facility] ne 50 mcg -09 tablet by ity o f tablet 00:00: mouth [place] 00 every Medical morning. Branch fluticasone 2020-09 Yes [id number] 2{puff} Inhale 2 [facility] propionate 1-09 Puffs ity of (FLOVENT 00:00: every 12 [place] HFA) 110 00 (twelve) Medical mcg/actuati hours. Branch on inhaler Rinse mouth after each use. levalbutero 2020-09 Yes [id number] .63mg Inhale [facility] l 0.63 mg/3 1-09 0.63 mg 3 ity of mL 00:00: (three) [place] nebulizer 00 times Medical solution daily as Branch needed for Wheezing or Shortness of Breath. clotrimazol 2020-09 Yes [id number] Apply to [facility] e-betametha 1-09 area(s) 2 ity of sone cream 00:00: (two) [place] 00 times Medical daily. Branch cyclobenzap 2020-09 Yes [id number] TAKE 1 [facility] rine 5 mg 1-09 TABLET BY ity o f tablet 00:00: MOUTH [place] 00 EVERY 8 Medical HOURS Branch NEEDED econazole 2020-09 Yes [id number] Apply to [facility] nitrate 1 % -09 area(s) 2 ity of cream 00:00: (two) [place] 00 times Medical daily. Branch albuterol 2020-09 Yes [id number] 2{puff} Inhale 2 [facility] (PROAIR 1-09 Puffs ity of HFA) 90 00:00: every 6 [place] mcg/actuati 00 (six) Medical on inhaler hours as Branc h needed for Wheezing or Shortness of Breath. triamcinolo 2020-09 Yes [id number] Apply to [facility] ne 0.025 % 09 area(s) 3 ity of ointment 00:00: (three) [place] 00 times Medical daily. For Branch itching cyanocobala 2020-09 Yes [id number] 1000ug 1 mL by [facility] min 1,000 1-09 Intramuscu ity of mcg/mL 00:00: lar route [place] injection 00 every 2 Medical (two) Branch weeks. levothyroxi 2020-09 Yes [id number] 50ug Take 1 [facility] ne 50 mcg -09 tablet by ity o f tablet 00:00: mouth [place] 00 every Medical morning. Branch fluticasone 2020-09 Yes [id number] 2{puff} Inhale 2 [facility] propionate 1-09 Puffs ity of (FLOVENT 00:00: every 12 [place] HFA) 110 00 (twelve) Medical mcg/actuati hours. Branch on inhaler Rinse mouth after each use. levalbutero 2020-09 Yes [id number] .63mg Inhale [facility] l 0.63 mg/3 1-09 0.63 mg 3 ity of mL 00:00: (three) [place] nebulizer 00 times Medical solution daily as Branch needed for Wheezing or Shortness of Breath. clotrimazol 2020-09 Yes [id number] Apply to [facility] e-betametha 1-09 area(s) 2 ity of sone cream 00:00: (two) [place] 00 times Medical daily. Branch cyclobenzap 2020-09 Yes [id number] TAKE 1 [facility] rine 5 mg 1-09 TABLET BY ity o f tablet 00:00: MOUTH [place] 00 EVERY 8 Medical HOURS Branch NEEDED econazole 2020-09 Yes [id number] Apply to [facility] nitrate 1 % -09 area(s) 2 ity of cream 00:00: (two) [place] 00 times Medical daily. Branch albuterol 2020-09 Yes [id number] 2{puff} Inhale 2 [facility] (PROAIR 1-09 Puffs ity of HFA) 90 00:00: every 6 [place] mcg/actuati 00 (six) Medical on inhaler hours as Branc h needed for Wheezing or Shortness of Breath. triamcinolo 2020-09 Yes [id number] Apply to [facility] ne 0.025 % 10-04 area(s) 3 ity of ointment 00:00: (three) [place] 00 times Medical daily. For Branch itching cyanocobala 2020-09 Yes [id number] 1000ug 1 mL by [facility] min 1,000 1-09 Intramuscu ity of mcg/mL 00:00: lar route [place] injection 00 every 2 Medical (two) Branch weeks. levothyroxi 2020-09 Yes [id number] 50ug Take 1 [facility] ne 50 mcg 1-09 tablet by ity o f tablet 00:00: mouth [place] 00 every Medical morning. Branch fluticasone 2020-09 Yes [id number] 2{puff} Inhale 2 [facility] propionate 1-09 Puffs ity of (FLOVENT 00:00: every 12 [place] HFA) 110 00 (twelve) Medical mcg/actuati hours. Branch on inhaler Rinse mouth after each use. levalbutero 2020-09 Yes [id number] .63mg Inhale [facility] l 0.63 mg/3 1-09 0.63 mg 3 ity of mL 00:00: (three) [place] nebulizer 00 times Medical solution daily as Branch needed for Wheezing or Shortness of Breath. clotrimazol 2020-09 Yes [id number] Apply to [facility] e-betametha -09 area(s) 2 ity of sone cream 00:00: (two) [place] 00 times Medical daily. Branch cyclobenzap 2020-09 Yes [id number] TAKE 1 [facility] rine 5 mg 1-09 TABLET BY ity o f tablet 00:00: MOUTH [place] 00 EVERY 8 Medical HOURS Branch NEEDED econazole 2020-09 Yes [id number] Apply to [facility] nitrate 1 % 1-09 area(s) 2 ity of cream 00:00: (two) [place] 00 times Medical daily. Branch albuterol 2020-09 Yes [id number] 2{puff} Inhale 2 [facility] (PROAIR 1-09 Puffs ity of HFA) 90 00:00: every 6 [place] mcg/actuati 00 (six) Medical on inhaler hours as Branc h needed for Wheezing or Shortness of Breath. triamcinolo 2020-09 Yes [id number] Apply to [facility] ne 0.025 % 1-09 area(s) 3 ity of ointment 00:00: (three) [place] 00 times Medical daily. For Branch itching cyanocobala 2020-09 Yes [id number] 1000ug 1 mL by [facility] min 1,000 1-09 Intramuscu ity of mcg/mL 00:00: lar route [place] injection 00 every 2 Medical (two) Branch weeks. levothyroxi 2020-09 Yes [id number] 50ug Take 1 [facility] ne 50 mcg 1-09 tablet by ity o f tablet 00:00: mouth [place] 00 every Medical morning. Branch fluticasone 2020-09 Yes [id number] 2{puff} Inhale 2 [facility] propionate 1-09 Puffs ity of (FLOVENT 00:00: every 12 [place] HFA) 110 00 (twelve) Medical mcg/actuati hours. Branch on inhaler Rinse mouth after each use. levalbutero 2020-09 Yes [id number] .63mg Inhale [facility] l 0.63 mg/3 1-09 0.63 mg 3 ity of mL 00:00: (three) [place] nebulizer 00 times Medical solution daily as Branch needed for Wheezing or Shortness of Breath. clotrimazol 2020-09 Yes [id number] Apply to [facility] e-betametha 1-09 area(s) 2 ity of sone cream 00:00: (two) [place] 00 times Medical daily. Branch cyclobenzap 2020-09 Yes [id number] TAKE 1 [facility] rine 5 mg 1-09 TABLET BY ity o f tablet 00:00: MOUTH [place] 00 EVERY 8 Medical HOURS Branch NEEDED econazole 2020-09 Yes [id number] Apply to [facility] nitrate 1 % -09 area(s) 2 ity of cream 00:00: (two) [place] 00 times Medical daily. Branch albuterol 2020-09 Yes [id number] 2{puff} Inhale 2 [facility] (PROAIR 1-09 Puffs ity of HFA) 90 00:00: every 6 [place] mcg/actuati 00 (six) Medical on inhaler hours as Branc h needed for Wheezing or Shortness of Breath. triamcinolo 2020-09 Yes [id number] Apply to [facility] ne 0.025 % -09 area(s) 3 ity of ointment 00:00: (three) [place] 00 times Medical daily. For Branch itching cyanocobala 2020-09 Yes [id number] 1000ug 1 mL by [facility] min 1,000 -09 Intramuscu ity of mcg/mL 00:00: lar route [place] injection 00 every 2 Medical (two) Branch weeks. levothyroxi 2020-09 Yes [id number] 50ug Take 1 [facility] ne 50 mcg -09 tablet by ity o f tablet 00:00: mouth [place] 00 every Medical morning. Branch fluticasone 2020-09 Yes [id number] 2{puff} Inhale 2 [facility] propionate 1-09 Puffs ity of (FLOVENT 00:00: every 12 [place] HFA) 110 00 (twelve) Medical mcg/actuati hours. Branch on inhaler Rinse mouth after each use. levalbutero 2020-09 Yes [id number] .63mg Inhale [facility] l 0.63 mg/3 1-09 0.63 mg 3 ity of mL 00:00: (three) [place] nebulizer 00 times Medical solution daily as Branch needed for Wheezing or Shortness of Breath. clotrimazol 2020-09 Yes [id number] Apply to [facility] e-betametha -09 area(s) 2 ity of sone cream 00:00: (two) [place] 00 times Medical daily. Branch cyclobenzap 2020-09 Yes [id number] TAKE 1 [facility] rine 5 mg 1-09 TABLET BY ity o f tablet 00:00: MOUTH [place] 00 EVERY 8 Medical HOURS Branch NEEDED econazole 2020-09 Yes [id number] Apply to [facility] nitrate 1 % -09 area(s) 2 ity of cream 00:00: (two) [place] 00 times Medical daily. Branch albuterol 2020-09 Yes [id number] 2{puff} Inhale 2 [facility] (PROAIR 1-09 Puffs ity of HFA) 90 00:00: every 6 [place] mcg/actuati 00 (six) Medical on inhaler hours as Branc h needed for Wheezing or Shortness of Breath. triamcinolo 2020-09 Yes [id number] Apply to [facility] ne 0.025 % 1-09 area(s) 3 ity of ointment 00:00: (three) [place] 00 times Medical daily. For Branch itching cyanocobala 2020-09 Yes [id number] 1000ug 1 mL by [facility] min 1,000 1-09 Intramuscu ity of mcg/mL 00:00: lar route [place] injection 00 every 2 Medical (two) Branch weeks. levothyroxi 2020-09 Yes [id number] 50ug Take 1 [facility] ne 50 mcg 1-09 tablet by ity o f tablet 00:00: mouth [place] 00 every Medical morning. Branch fluticasone 2020-09 Yes [id number] 2{puff} Inhale 2 [facility] propionate 1-09 Puffs ity of (FLOVENT 00:00: every 12 [place] HFA) 110 00 (twelve) Medical mcg/actuati hours. Branch on inhaler Rinse mouth after each use. levalbutero 2020-09 Yes [id number] .63mg Inhale [facility] l 0.63 mg/3 1-09 0.63 mg 3 ity of mL 00:00: (three) [place] nebulizer 00 times Medical solution daily as Branch needed for Wheezing or Shortness of Breath. clotrimazol 2020-09 Yes [id number] Apply to [facility] e-betametha 1-09 area(s) 2 ity of sone cream 00:00: (two) [place] 00 times Medical daily. Branch cyclobenzap 2020-09 Yes [id number] TAKE 1 [facility] rine 5 mg 1-09 TABLET BY ity o f tablet 00:00: MOUTH [place] 00 EVERY 8 Medical HOURS Branch NEEDED econazole 2020-09 Yes [id number] Apply to [facility] nitrate 1 % 1-09 area(s) 2 ity of cream 00:00: (two) [place] 00 times Medical daily. Branch albuterol 2020-09 Yes [id number] 2{puff} Inhale 2 [facility] (PROAIR 1-09 Puffs ity of HFA) 90 00:00: every 6 [place] mcg/actuati 00 (six) Medical on inhaler hours as Branc h needed for Wheezing or Shortness of Breath. triamcinolo 2020-09 Yes [id number] Apply to [facility] ne 0.025 % -09 area(s) 3 ity of ointment 00:00: (three) [place] 00 times Medical daily. For Branch itching cyanocobala 2020-09 Yes [id number] 1000ug 1 mL by [facility] min 1,000 1-09 Intramuscu ity of mcg/mL 00:00: lar route [place] injection 00 every 2 Medical (two) Branch weeks. levothyroxi 2020-09 Yes [id number] 50ug Take 1 [facility] ne 50 mcg -09 tablet by ity o f tablet 00:00: mouth [place] 00 every Medical morning. Branch fluticasone 2020-09 Yes [id number] 2{puff} Inhale 2 [facility] propionate 1-09 Puffs ity of (FLOVENT 00:00: every 12 [place] HFA) 110 00 (twelve) Medical mcg/actuati hours. Branch on inhaler Rinse mouth after each use. levalbutero 2020-09 Yes [id number] .63mg Inhale [facility] l 0.63 mg/3 1-09 0.63 mg 3 ity of mL 00:00: (three) [place] nebulizer 00 times Medical solution daily as Branch needed for Wheezing or Shortness of Breath. clotrimazol 2020-09 Yes [id number] Apply to [facility] e-betametha - area(s) 2 ity of sone cream 00:00: (two) [place] 00 times Medical daily. Branch cyclobenzap 2020-09 Yes [id number] TAKE 1 [facility] rine 5 mg 1-09 TABLET BY ity o f tablet 00:00: MOUTH [place] 00 EVERY 8 Medical HOURS Branch NEEDED econazole 2020-09 Yes [id number] Apply to [facility] nitrate 1 % -09 area(s) 2 ity of cream 00:00: (two) [place] 00 times Medical daily. Branch albuterol 2020-09 Yes [id number] 2{puff} Inhale 2 [facility] (PROAIR 1-09 Puffs ity of HFA) 90 00:00: every 6 [place] mcg/actuati 00 (six) Medical on inhaler hours as Branc h needed for Wheezing or Shortness of Breath. triamcinolo 2020-09 Yes [id number] Apply to [facility] ne 0.025 % 09 area(s) 3 ity of ointment 00:00: (three) [place] 00 times Medical daily. For Branch itching cyanocobala 2020-09 Yes [id number] 1000ug 1 mL by [facility] min 1,000 -09 Intramuscu ity of mcg/mL 00:00: lar route [place] injection 00 every 2 Medical (two) Branch weeks. levothyroxi 2020-09 Yes [id number] 50ug Take 1 [facility] ne 50 mcg -09 tablet by ity o f tablet 00:00: mouth [place] 00 every Medical morning. Branch fluticasone 2020-09 Yes [id number] 2{puff} Inhale 2 [facility] propionate -09 Puffs ity of (FLOVENT 00:00: every 12 [place] HFA) 110 00 (twelve) Medical mcg/actuati hours. Branch on inhaler Rinse mouth after each use. levalbutero 2020-09 Yes [id number] .63mg Inhale [facility] l 0.63 mg/3 -09 0.63 mg 3 ity of mL 00:00: (three) [place] nebulizer 00 times Medical solution daily as Branch needed for Wheezing or Shortness of Breath. clotrimazol 2020-09 Yes [id number] Apply to [facility] e-betametha 10-04 area(s) 2 ity of sone cream 00:00: (two) [place] 00 times Medical daily. Branch cyclobenzap 2020-09 Yes [id number] TAKE 1 [facility] rine 5 mg -09 TABLET BY ity o f tablet 00:00: MOUTH [place] 00 EVERY 8 Medical HOURS Branch NEEDED econazole 2020-09 Yes [id number] Apply to [facility] nitrate 1 % -09 area(s) 2 ity of cream 00:00: (two) [place] 00 times Medical daily. Branch albuterol 2020-09 Yes [id number] 2{puff} Inhale 2 [facility] (PROAIR 1-09 Puffs ity of HFA) 90 00:00: every 6 [place] mcg/actuati 00 (six) Medical on inhaler hours as Branc h needed for Wheezing or Shortness of Breath. triamcinolo 2020-09 Yes [id number] Apply to [facility] ne 0.025 % 1-09 area(s) 3 ity of ointment 00:00: (three) [place] 00 times Medical daily. For Branch itching cyanocobala 2020-09 Yes [id number] 1000ug 1 mL by [facility] min 1,000 1-09 Intramuscu ity of mcg/mL 00:00: lar route [place] injection 00 every 2 Medical (two) Branch weeks. levothyroxi 2020-09 Yes [id number] 50ug Take 1 [facility] ne 50 mcg 1-09 tablet by ity o f tablet 00:00: mouth [place] 00 every Medical morning. Branch fluticasone 2020-09 Yes [id number] 2{puff} Inhale 2 [facility] propionate 1-09 Puffs ity of (FLOVENT 00:00: every 12 [place] HFA) 110 00 (twelve) Medical mcg/actuati hours. Branch on inhaler Rinse mouth after each use. levalbutero 2020-09 Yes [id number] .63mg Inhale [facility] l 0.63 mg/3 1-09 0.63 mg 3 ity of mL 00:00: (three) [place] nebulizer 00 times Medical solution daily as Branch needed for Wheezing or Shortness of Breath. clotrimazol 2020-09 Yes [id number] Apply to [facility] e-betametha 09 area(s) 2 ity of sone cream 00:00: (two) [place] 00 times Medical daily. Branch cyclobenzap 2020-09 Yes [id number] TAKE 1 [facility] rine 5 mg 1-09 TABLET BY ity o f tablet 00:00: MOUTH [place] 00 EVERY 8 Medical HOURS Branch NEEDED econazole 2020-09 Yes [id number] Apply to [facility] nitrate 1 % 1-09 area(s) 2 ity of cream 00:00: (two) [place] 00 times Medical daily. Branch albuterol 2020-09 Yes [id number] 2{puff} Inhale 2 [facility] (PROAIR 1-09 Puffs ity of HFA) 90 00:00: every 6 [place] mcg/actuati 00 (six) Medical on inhaler hours as Branc h needed for Wheezing or Shortness of Breath. triamcinolo 2020-09 Yes [id number] Apply to [facility] ne 0.025 % 1-09 area(s) 3 ity of ointment 00:00: (three) [place] 00 times Medical daily. For Branch itching cyanocobala 2020-09 Yes [id number] 1000ug 1 mL by [facility] min 1,000 1-09 Intramuscu ity of mcg/mL 00:00: lar route [place] injection 00 every 2 Medical (two) Branch weeks. levothyroxi 2020-09 Yes [id number] 50ug Take 1 [facility] ne 50 mcg 1-09 tablet by ity o f tablet 00:00: mouth [place] 00 every Medical morning. Branch fluticasone 2020-09 Yes [id number] 2{puff} Inhale 2 [facility] propionate 1-09 Puffs ity of (FLOVENT 00:00: every 12 [place] HFA) 110 00 (twelve) Medical mcg/actuati hours. Branch on inhaler Rinse mouth after each use. levalbutero 2020-09 Yes [id number] .63mg Inhale [facility] l 0.63 mg/3 1-09 0.63 mg 3 ity of mL 00:00: (three) [place] nebulizer 00 times Medical solution daily as Branch needed for Wheezing or Shortness of Breath. clotrimazol 2020-09 Yes [id number] Apply to [facility] e-betametha 10-04 area(s) 2 ity of sone cream 00:00: (two) [place] 00 times Medical daily. Branch cyclobenzap 2020-09 Yes [id number] TAKE 1 [facility] rine 5 mg -09 TABLET BY ity o f tablet 00:00: MOUTH [place] 00 EVERY 8 Medical HOURS Branch NEEDED econazole 2020-09 Yes [id number] Apply to [facility] nitrate 1 % -09 area(s) 2 ity of cream 00:00: (two) [place] 00 times Medical daily. Branch albuterol 2020-09 Yes [id number] 2{puff} Inhale 2 [facility] (PROAIR 1-09 Puffs ity of HFA) 90 00:00: every 6 [place] mcg/actuati 00 (six) Medical on inhaler hours as Branc h needed for Wheezing or Shortness of Breath. triamcinolo 2020-09 Yes [id number] Apply to [facility] ne 0.025 % 1- area(s) 3 ity of ointment 00:00: (three) [place] 00 times Medical daily. For Branch itching cyanocobala 2020-09 Yes [id number] 1000ug 1 mL by [facility] min 1,000 1-09 Intramuscu ity of mcg/mL 00:00: lar route [place] injection 00 every 2 Medical (two) Branch weeks. levothyroxi 2020-09 Yes [id number] 50ug Take 1 [facility] ne 50 mcg 1-09 tablet by ity o f tablet 00:00: mouth [place] 00 every Medical morning. Branch fluticasone 2020-09 Yes [id number] 2{puff} Inhale 2 [facility] propionate 1-09 Puffs ity of (FLOVENT 00:00: every 12 [place] HFA) 110 00 (twelve) Medical mcg/actuati hours. Branch on inhaler Rinse mouth after each use. levalbutero 2020-09 Yes [id number] .63mg Inhale [facility] l 0.63 mg/3 -09 0.63 mg 3 ity of mL 00:00: (three) [place] nebulizer 00 times Medical solution daily as Branch needed for Wheezing or Shortness of Breath. clotrimazol 2020-09 Yes [id number] Apply to [facility] e-betametha 10-04 area(s) 2 ity of sone cream 00:00: (two) [place] 00 times Medical daily. Branch cyclobenzap 2020-09 Yes [id number] TAKE 1 [facility] rine 5 mg -09 TABLET BY ity o f tablet 00:00: MOUTH [place] 00 EVERY 8 Medical HOURS Branch NEEDED econazole 2020-09 Yes [id number] Apply to [facility] nitrate 1 % -09 area(s) 2 ity of cream 00:00: (two) [place] 00 times Medical daily. Branch albuterol 2020-09 Yes [id number] 2{puff} Inhale 2 [facility] (PROAIR 1-09 Puffs ity of HFA) 90 00:00: every 6 [place] mcg/actuati 00 (six) Medical on inhaler hours as Branc h needed for Wheezing or Shortness of Breath. triamcinolo 2020-09 Yes [id number] Apply to [facility] ne 0.025 % 1-09 area(s) 3 ity of ointment 00:00: (three) [place] 00 times Medical daily. For Branch itching cyanocobala 2020-09 Yes [id number] 1000ug 1 mL by [facility] min 1,000 1-09 Intramuscu ity of mcg/mL 00:00: lar route [place] injection 00 every 2 Medical (two) Branch weeks. levothyroxi 2020-09 Yes [id number] 50ug Take 1 [facility] ne 50 mcg 1-09 tablet by ity o f tablet 00:00: mouth [place] 00 every Medical morning. Branch fluticasone 2020-09 Yes [id number] 2{puff} Inhale 2 [facility] propionate 1-09 Puffs ity of (FLOVENT 00:00: every 12 [place] HFA) 110 00 (twelve) Medical mcg/actuati hours. Branch on inhaler Rinse mouth after each use. levalbutero 2020-09 Yes [id number] .63mg Inhale [facility] l 0.63 mg/3 1-09 0.63 mg 3 ity of mL 00:00: (three) [place] nebulizer 00 times Medical solution daily as Branch needed for Wheezing or Shortness of Breath. clotrimazol 2020-09 Yes [id number] Apply to [facility] e-betametha 1-09 area(s) 2 ity of sone cream 00:00: (two) [place] 00 times Medical daily. Branch cyclobenzap 2020-09 Yes [id number] TAKE 1 [facility] rine 5 mg 1-09 TABLET BY ity o f tablet 00:00: MOUTH [place] 00 EVERY 8 Medical HOURS Branch NEEDED econazole 2020-09 Yes [id number] Apply to [facility] nitrate 1 % 1-09 area(s) 2 ity of cream 00:00: (two) [place] 00 times Medical daily. Branch albuterol 2020-09 Yes [id number] 2{puff} Inhale 2 [facility] (PROAIR 1-09 Puffs ity of HFA) 90 00:00: every 6 [place] mcg/actuati 00 (six) Medical on inhaler hours as Branc h needed for Wheezing or Shortness of Breath. triamcinolo 2020-09 Yes [id number] Apply to [facility] ne 0.025 % 1-09 area(s) 3 ity of ointment 00:00: (three) [place] 00 times Medical daily. For Branch itching cyanocobala 2020-09 Yes [id number] 1000ug 1 mL by [facility] min 1,000 1-09 Intramuscu ity of mcg/mL 00:00: lar route [place] injection 00 every 2 Medical (two) Branch weeks. levothyroxi 2020-09 Yes [id number] 50ug Take 1 [facility] ne 50 mcg 1-09 tablet by ity o f tablet 00:00: mouth [place] 00 every Medical morning. Branch fluticasone 2020-09 Yes [id number] 2{puff} Inhale 2 [facility] propionate 1-09 Puffs ity of (FLOVENT 00:00: every 12 [place] HFA) 110 00 (twelve) Medical mcg/actuati hours. Branch on inhaler Rinse mouth after each use. levalbutero 2020-09 Yes [id number] .63mg Inhale [facility] l 0.63 mg/3 1-09 0.63 mg 3 ity of mL 00:00: (three) [place] nebulizer 00 times Medical solution daily as Branch needed for Wheezing or Shortness of Breath. clotrimazol 2020-09 Yes [id number] Apply to [facility] e-betametha -09 area(s) 2 ity of sone cream 00:00: (two) [place] 00 times Medical daily. Branch cyclobenzap 2020-09 Yes [id number] TAKE 1 [facility] rine 5 mg -09 TABLET BY ity o f tablet 00:00: MOUTH [place] 00 EVERY 8 Medical HOURS Branch NEEDED econazole 2020-09 Yes [id number] Apply to [facility] nitrate 1 % -09 area(s) 2 ity of cream 00:00: (two) [place] 00 times Medical daily. Branch albuterol 2020-09 Yes [id number] 2{puff} Inhale 2 [facility] (PROAIR 1-09 Puffs ity of HFA) 90 00:00: every 6 [place] mcg/actuati 00 (six) Medical on inhaler hours as Branc h needed for Wheezing or Shortness of Breath. triamcinolo 2020-09 Yes [id number] Apply to [facility] ne 0.025 % 1-09 area(s) 3 ity of ointment 00:00: (three) [place] 00 times Medical daily. For Branch itching cyanocobala 2020-09 Yes [id number] 1000ug 1 mL by [facility] min 1,000 1-09 Intramuscu ity of mcg/mL 00:00: lar route [place] injection 00 every 2 Medical (two) Branch weeks. levothyroxi 2020-09 Yes [id number] 50ug Take 1 [facility] ne 50 mcg 1-09 tablet by ity o f tablet 00:00: mouth [place] 00 every Medical morning. Branch fluticasone 2020-09 Yes [id number] 2{puff} Inhale 2 [facility] propionate 1-09 Puffs ity of (FLOVENT 00:00: every 12 [place] HFA) 110 00 (twelve) Medical mcg/actuati hours. Branch on inhaler Rinse mouth after each use. levalbutero 2020-09 Yes [id number] .63mg Inhale [facility] l 0.63 mg/3 1-09 0.63 mg 3 ity of mL 00:00: (three) [place] nebulizer 00 times Medical solution daily as Branch needed for Wheezing or Shortness of Breath. clotrimazol 2020-09 Yes [id number] Apply to [facility] e-betametha 1-09 area(s) 2 ity of sone cream 00:00: (two) [place] 00 times Medical daily. Branch cyclobenzap 2020-09 Yes [id number] TAKE 1 [facility] rine 5 mg 1-09 TABLET BY ity o f tablet 00:00: MOUTH [place] 00 EVERY 8 Medical HOURS Branch NEEDED econazole 2020-09 Yes [id number] Apply to [facility] nitrate 1 % -09 area(s) 2 ity of cream 00:00: (two) [place] 00 times Medical daily. Branch albuterol 2020-09 Yes [id number] 2{puff} Inhale 2 [facility] (PROAIR 1-09 Puffs ity of HFA) 90 00:00: every 6 [place] mcg/actuati 00 (six) Medical on inhaler hours as Branc h needed for Wheezing or Shortness of Breath. triamcinolo 2020-09 Yes [id number] Apply to [facility] ne 0.025 % 1-09 area(s) 3 ity of ointment 00:00: (three) [place] 00 times Medical daily. For Branch itching cyanocobala 2020-09 Yes [id number] 1000ug 1 mL by [facility] min 1,000 1-09 Intramuscu ity of mcg/mL 00:00: lar route [place] injection 00 every 2 Medical (two) Branch weeks. levothyroxi 2020-09 Yes [id number] 50ug Take 1 [facility] ne 50 mcg 1-09 tablet by ity o f tablet 00:00: mouth [place] 00 every Medical morning. Branch fluticasone 2020-09 Yes [id number] 2{puff} Inhale 2 [facility] propionate 1-09 Puffs ity of (FLOVENT 00:00: every 12 [place] HFA) 110 00 (twelve) Medical mcg/actuati hours. Branch on inhaler Rinse mouth after each use. levalbutero 2020-09 Yes [id number] .63mg Inhale [facility] l 0.63 mg/3 1-09 0.63 mg 3 ity of mL 00:00: (three) [place] nebulizer 00 times Medical solution daily as Branch needed for Wheezing or Shortness of Breath. clotrimazol 2020-09 Yes [id number] Apply to [facility] e-betametha 1-09 area(s) 2 ity of sone cream 00:00: (two) [place] 00 times Medical daily. Branch cyclobenzap 2020-09 Yes [id number] TAKE 1 [facility] rine 5 mg 1-09 TABLET BY ity o f tablet 00:00: MOUTH [place] 00 EVERY 8 Medical HOURS Branch NEEDED econazole 2020-09 Yes [id number] Apply to [facility] nitrate 1 % 1-09 area(s) 2 ity of cream 00:00: (two) [place] 00 times Medical daily. Branch albuterol 2020-09 Yes [id number] 2{puff} Inhale 2 [facility] (PROAIR 1-09 Puffs ity of HFA) 90 00:00: every 6 [place] mcg/actuati 00 (six) Medical on inhaler hours as Branc h needed for Wheezing or Shortness of Breath. triamcinolo 2020-09 Yes [id number] Apply to [facility] ne 0.025 % 1-09 area(s) 3 ity of ointment 00:00: (three) [place] 00 times Medical daily. For Branch itching cyanocobala 2020-09 Yes [id number] 1000ug 1 mL by [facility] min 1,000 1-09 Intramuscu ity of mcg/mL 00:00: lar route [place] injection 00 every 2 Medical (two) Branch weeks. levothyroxi 2020-09 Yes [id number] 50ug Take 1 [facility] ne 50 mcg 1-09 tablet by ity o f tablet 00:00: mouth [place] 00 every Medical morning. Branch fluticasone 2020-09 Yes [id number] 2{puff} Inhale 2 [facility] propionate 1-09 Puffs ity of (FLOVENT 00:00: every 12 [place] HFA) 110 00 (twelve) Medical mcg/actuati hours. Branch on inhaler Rinse mouth after each use. levalbutero 2020-09 Yes [id number] .63mg Inhale [facility] l 0.63 mg/3 1-09 0.63 mg 3 ity of mL 00:00: (three) [place] nebulizer 00 times Medical solution daily as Branch needed for Wheezing or Shortness of Breath. clotrimazol 2020-09 Yes [id number] Apply to [facility] e-betametha -09 area(s) 2 ity of sone cream 00:00: (two) [place] 00 times Medical daily. Branch cyclobenzap 2020-09 Yes [id number] TAKE 1 [facility] rine 5 mg -09 TABLET BY ity o f tablet 00:00: MOUTH [place] 00 EVERY 8 Medical HOURS Branch NEEDED econazole 2020-09 Yes [id number] Apply to [facility] nitrate 1 % 09 area(s) 2 ity of cream 00:00: (two) [place] 00 times Medical daily. Branch albuterol 2020-09 Yes [id number] 2{puff} Inhale 2 [facility] (PROAIR 1-09 Puffs ity of HFA) 90 00:00: every 6 [place] mcg/actuati 00 (six) Medical on inhaler hours as Branc h needed for Wheezing or Shortness of Breath. triamcinolo 2020-09 Yes [id number] Apply to [facility] ne 0.025 % -09 area(s) 3 ity of ointment 00:00: (three) [place] 00 times Medical daily. For Branch itching cyanocobala 2020-09 Yes [id number] 1000ug 1 mL by [facility] min 1,000 1-09 Intramuscu ity of mcg/mL 00:00: lar route [place] injection 00 every 2 Medical (two) Branch weeks. levothyroxi 2020-09 Yes [id number] 50ug Take 1 [facility] ne 50 mcg 1-09 tablet by ity o f tablet 00:00: mouth [place] 00 every Medical morning. Branch fluticasone 2020-09 Yes [id number] 2{puff} Inhale 2 [facility] propionate 1-09 Puffs ity of (FLOVENT 00:00: every 12 [place] HFA) 110 00 (twelve) Medical mcg/actuati hours. Branch on inhaler Rinse mouth after each use. levalbutero 2020-09 Yes [id number] .63mg Inhale [facility] l 0.63 mg/3 1-09 0.63 mg 3 ity of mL 00:00: (three) [place] nebulizer 00 times Medical solution daily as Branch needed for Wheezing or Shortness of Breath. clotrimazol 2020-09 Yes [id number] Apply to [facility] e-betametha -09 area(s) 2 ity of sone cream 00:00: (two) [place] 00 times Medical daily. Branch cyclobenzap 2020-09 Yes [id number] TAKE 1 [facility] rine 5 mg -09 TABLET BY ity o f tablet 00:00: MOUTH [place] 00 EVERY 8 Medical HOURS Branch NEEDED econazole 2020-09 Yes [id number] Apply to [facility] nitrate 1 % -09 area(s) 2 ity of cream 00:00: (two) [place] 00 times Medical daily. Branch albuterol 2020-09 Yes [id number] 2{puff} Inhale 2 [facility] (PROAIR 1-09 Puffs ity of HFA) 90 00:00: every 6 [place] mcg/actuati 00 (six) Medical on inhaler hours as Branc h needed for Wheezing or Shortness of Breath. triamcinolo 2020-09 Yes [id number] Apply to [facility] ne 0.025 % -09 area(s) 3 ity of ointment 00:00: (three) [place] 00 times Medical daily. For Branch itching cyanocobala 2020-09 Yes [id number] 1000ug 1 mL by [facility] min 1,000 1-09 Intramuscu ity of mcg/mL 00:00: lar route [place] injection 00 every 2 Medical (two) Branch weeks. levothyroxi 2020-09 Yes [id number] 50ug Take 1 [facility] ne 50 mcg 1-09 tablet by ity o f tablet 00:00: mouth [place] 00 every Medical morning. Branch fluticasone 2020-09 Yes [id number] 2{puff} Inhale 2 [facility] propionate 1-09 Puffs ity of (FLOVENT 00:00: every 12 [place] HFA) 110 00 (twelve) Medical mcg/actuati hours. Branch on inhaler Rinse mouth after each use. levalbutero 2020-09 Yes [id number] .63mg Inhale [facility] l 0.63 mg/3 1-09 0.63 mg 3 ity of mL 00:00: (three) [place] nebulizer 00 times Medical solution daily as Branch needed for Wheezing or Shortness of Breath. clotrimazol 2020-09 Yes [id number] Apply to [facility] e-betametha 1-09 area(s) 2 ity of sone cream 00:00: (two) [place] 00 times Medical daily. Branch cyclobenzap 2020-09 Yes [id number] TAKE 1 [facility] rine 5 mg -09 TABLET BY ity o f tablet 00:00: MOUTH [place] 00 EVERY 8 Medical HOURS Branch NEEDED econazole 2020-09 Yes [id number] Apply to [facility] nitrate 1 % -09 area(s) 2 ity of cream 00:00: (two) [place] 00 times Medical daily. Branch albuterol 2020-09 Yes [id number] 2{puff} Inhale 2 [facility] (PROAIR 1-09 Puffs ity of HFA) 90 00:00: every 6 [place] mcg/actuati 00 (six) Medical on inhaler hours as Branc h needed for Wheezing or Shortness of Breath. triamcinolo 2020-09 Yes [id number] Apply to [facility] ne 0.025 % 1-09 area(s) 3 ity of ointment 00:00: (three) [place] 00 times Medical daily. For Branch itching cyanocobala 2020-09 Yes [id number] 1000ug 1 mL by [facility] min 1,000 1-09 Intramuscu ity of mcg/mL 00:00: lar route [place] injection 00 every 2 Medical (two) Branch weeks. levothyroxi 2020-09 Yes [id number] 50ug Take 1 [facility] ne 50 mcg 1-09 tablet by ity o f tablet 00:00: mouth [place] 00 every Medical morning. Branch fluticasone 2020-09 Yes [id number] 2{puff} Inhale 2 [facility] propionate 1-09 Puffs ity of (FLOVENT 00:00: every 12 [place] HFA) 110 00 (twelve) Medical mcg/actuati hours. Branch on inhaler Rinse mouth after each use. levalbutero 2020-09 Yes [id number] .63mg Inhale [facility] l 0.63 mg/3 1-09 0.63 mg 3 ity of mL 00:00: (three) [place] nebulizer 00 times Medical solution daily as Branch needed for Wheezing or Shortness of Breath. clotrimazol 2020-09 Yes [id number] Apply to [facility] e-betametha 1-09 area(s) 2 ity of sone cream 00:00: (two) [place] 00 times Medical daily. Branch cyclobenzap 2020-09 Yes [id number] TAKE 1 [facility] rine 5 mg -09 TABLET BY ity o f tablet 00:00: MOUTH [place] 00 EVERY 8 Medical HOURS Branch NEEDED econazole 2020-09 Yes [id number] Apply to [facility] nitrate 1 % 10-04 area(s) 2 ity of cream 00:00: (two) [place] 00 times Medical daily. Branch albuterol 2020-09 Yes [id number] 2{puff} Inhale 2 [facility] (PROAIR 1-09 Puffs ity of HFA) 90 00:00: every 6 [place] mcg/actuati 00 (six) Medical on inhaler hours as Branc h needed for Wheezing or Shortness of Breath. triamcinolo 2020-09 Yes [id number] Apply to [facility] ne 0.025 % -09 area(s) 3 ity of ointment 00:00: (three) [place] 00 times Medical daily. For Branch itching cyanocobala 2020-09 Yes [id number] 1000ug 1 mL by [facility] min 1,000 1-09 Intramuscu ity of mcg/mL 00:00: lar route [place] injection 00 every 2 Medical (two) Branch weeks. levothyroxi 2020-09 Yes [id number] 50ug Take 1 [facility] ne 50 mcg 1-09 tablet by ity o f tablet 00:00: mouth [place] 00 every Medical morning. Branch fluticasone 2020-09 Yes [id number] 2{puff} Inhale 2 [facility] propionate 1-09 Puffs ity of (FLOVENT 00:00: every 12 [place] HFA) 110 00 (twelve) Medical mcg/actuati hours. Branch on inhaler Rinse mouth after each use. levalbutero 2020-09 Yes [id number] .63mg Inhale [facility] l 0.63 mg/3 1-09 0.63 mg 3 ity of mL 00:00: (three) [place] nebulizer 00 times Medical solution daily as Branch needed for Wheezing or Shortness of Breath. clotrimazol 2020-09 Yes [id number] Apply to [facility] e-betametha 09 area(s) 2 ity of sone cream 00:00: (two) [place] 00 times Medical daily. Branch cyclobenzap 2020-09 Yes [id number] TAKE 1 [facility] rine 5 mg -09 TABLET BY ity o f tablet 00:00: MOUTH [place] 00 EVERY 8 Medical HOURS Branch NEEDED econazole 2020-09 Yes [id number] Apply to [facility] nitrate 1 % 10-04 area(s) 2 ity of cream 00:00: (two) [place] 00 times Medical daily. Branch albuterol 2020-09 Yes [id number] 2{puff} Inhale 2 [facility] (PROAIR 1-09 Puffs ity of HFA) 90 00:00: every 6 [place] mcg/actuati 00 (six) Medical on inhaler hours as Branc h needed for Wheezing or Shortness of Breath. triamcinolo 2020-09 Yes [id number] Apply to [facility] ne 0.025 % 10-04 area(s) 3 ity of ointment 00:00: (three) [place] 00 times Medical daily. For Branch itching cyanocobala 2020-09 Yes [id number] 1000ug 1 mL by [facility] min 1,000 1-09 Intramuscu ity of mcg/mL 00:00: lar route [place] injection 00 every 2 Medical (two) Branch weeks. levothyroxi 2020-09 Yes [id number] 50ug Take 1 [facility] ne 50 mcg -09 tablet by ity o f tablet 00:00: mouth [place] 00 every Medical morning. Branch fluticasone 2020-09 Yes [id number] 2{puff} Inhale 2 [facility] propionate 1-09 Puffs ity of (FLOVENT 00:00: every 12 [place] HFA) 110 00 (twelve) Medical mcg/actuati hours. Branch on inhaler Rinse mouth after each use. levalbutero 2020-09 Yes [id number] .63mg Inhale [facility] l 0.63 mg/3 1-09 0.63 mg 3 ity of mL 00:00: (three) [place] nebulizer 00 times Medical solution daily as Branch needed for Wheezing or Shortness of Breath. clotrimazol 2020-09 Yes [id number] Apply to [facility] e-betametha -09 area(s) 2 ity of sone cream 00:00: (two) [place] 00 times Medical daily. Branch cyclobenzap 2020-09 Yes [id number] TAKE 1 [facility] rine 5 mg -09 TABLET BY ity o f tablet 00:00: MOUTH [place] 00 EVERY 8 Medical HOURS Branch NEEDED econazole 2020-09 Yes [id number] Apply to [facility] nitrate 1 % 10-04 area(s) 2 ity of cream 00:00: (two) [place] 00 times Medical daily. Branch albuterol 2020-09 Yes [id number] 2{puff} Inhale 2 [facility] (PROAIR 1-09 Puffs ity of HFA) 90 00:00: every 6 [place] mcg/actuati 00 (six) Medical on inhaler hours as Branc h needed for Wheezing or Shortness of Breath. triamcinolo 2020-09 Yes [id number] Apply to [facility] ne 0.025 % 09 area(s) 3 ity of ointment 00:00: (three) [place] 00 times Medical daily. For Branch itching cyanocobala 2020-09 Yes [id number] 1000ug 1 mL by [facility] min 1,000 1-09 Intramuscu ity of mcg/mL 00:00: lar route [place] injection 00 every 2 Medical (two) Branch weeks. levothyroxi 2020-09 Yes [id number] 50ug Take 1 [facility] ne 50 mcg 1-09 tablet by ity o f tablet 00:00: mouth [place] 00 every Medical morning. Branch fluticasone 2020-09 Yes [id number] 2{puff} Inhale 2 [facility] propionate 1-09 Puffs ity of (FLOVENT 00:00: every 12 [place] HFA) 110 00 (twelve) Medical mcg/actuati hours. Branch on inhaler Rinse mouth after each use. levalbutero 2020-09 Yes [id number] .63mg Inhale [facility] l 0.63 mg/3 1-09 0.63 mg 3 ity of mL 00:00: (three) [place] nebulizer 00 times Medical solution daily as Branch needed for Wheezing or Shortness of Breath. clotrimazol 2020-09 Yes [id number] Apply to [facility] e-betametha 1-09 area(s) 2 ity of sone cream 00:00: (two) [place] 00 times Medical daily. Branch cyclobenzap 2020-09 Yes [id number] TAKE 1 [facility] rine 5 mg 1-09 TABLET BY ity o f tablet 00:00: MOUTH [place] 00 EVERY 8 Medical HOURS Branch NEEDED econazole 2020-09 Yes [id number] Apply to [facility] nitrate 1 % -09 area(s) 2 ity of cream 00:00: (two) [place] 00 times Medical daily. Branch albuterol 2020-09 Yes [id number] 2{puff} Inhale 2 [facility] (PROAIR 1-09 Puffs ity of HFA) 90 00:00: every 6 [place] mcg/actuati 00 (six) Medical on inhaler hours as Branc h needed for Wheezing or Shortness of Breath. triamcinolo 2020-09 Yes [id number] Apply to [facility] ne 0.025 % -09 area(s) 3 ity of ointment 00:00: (three) [place] 00 times Medical daily. For Branch itching cyanocobala 2020-09 Yes [id number] 1000ug 1 mL by [facility] min 1,000 1-09 Intramuscu ity of mcg/mL 00:00: lar route [place] injection 00 every 2 Medical (two) Branch weeks. levothyroxi 2020-09 Yes [id number] 50ug Take 1 [facility] ne 50 mcg 1-09 tablet by ity o f tablet 00:00: mouth [place] 00 every Medical morning. Branch fluticasone 2020-09 Yes [id number] 2{puff} Inhale 2 [facility] propionate 1-09 Puffs ity of (FLOVENT 00:00: every 12 [place] HFA) 110 00 (twelve) Medical mcg/actuati hours. Branch on inhaler Rinse mouth after each use. levalbutero 2020-09 Yes [id number] .63mg Inhale [facility] l 0.63 mg/3 1-09 0.63 mg 3 ity of mL 00:00: (three) [place] nebulizer 00 times Medical solution daily as Branch needed for Wheezing or Shortness of Breath. clotrimazol 2020-09 Yes [id number] Apply to [facility] e-betametha 10-04 area(s) 2 ity of sone cream 00:00: (two) [place] 00 times Medical daily. Branch cyclobenzap 2020-09 Yes [id number] TAKE 1 [facility] rine 5 mg -09 TABLET BY ity o f tablet 00:00: MOUTH [place] 00 EVERY 8 Medical HOURS Branch NEEDED econazole 2020-09 Yes [id number] Apply to [facility] nitrate 1 % 09 area(s) 2 ity of cream 00:00: (two) [place] 00 times Medical daily. Branch albuterol 2020-09 Yes [id number] 2{puff} Inhale 2 [facility] (PROAIR 1-09 Puffs ity of HFA) 90 00:00: every 6 [place] mcg/actuati 00 (six) Medical on inhaler hours as Branc h needed for Wheezing or Shortness of Breath. triamcinolo 2020-09 Yes [id number] Apply to [facility] ne 0.025 % 10-04 area(s) 3 ity of ointment 00:00: (three) [place] 00 times Medical daily. For Branch itching cyanocobala 2020-09 Yes [id number] 1000ug 1 mL by [facility] min 1,000 1-09 Intramuscu ity of mcg/mL 00:00: lar route [place] injection 00 every 2 Medical (two) Branch weeks. levothyroxi 2020-09 Yes [id number] 50ug Take 1 [facility] ne 50 mcg 10-04 tablet by ity o f tablet 00:00: mouth [place] 00 every Medical morning. Branch fluticasone 2020-09 Yes [id number] 2{puff} Inhale 2 [facility] propionate 1-09 Puffs ity of (FLOVENT 00:00: every 12 [place] HFA) 110 00 (twelve) Medical mcg/actuati hours. Branch on inhaler Rinse mouth after each use. levalbutero 2020-09 Yes [id number] .63mg Inhale [facility] l 0.63 mg/3 1-09 0.63 mg 3 ity of mL 00:00: (three) [place] nebulizer 00 times Medical solution daily as Branch needed for Wheezing or Shortness of Breath. clotrimazol 2020-09 Yes [id number] Apply to [facility] e-betametha -09 area(s) 2 ity of sone cream 00:00: (two) [place] 00 times Medical daily. Branch cyclobenzap 2020-09 Yes [id number] TAKE 1 [facility] rine 5 mg -09 TABLET BY ity o f tablet 00:00: MOUTH [place] 00 EVERY 8 Medical HOURS Branch NEEDED econazole 2020-09 Yes [id number] Apply to [facility] nitrate 1 % 10-04 area(s) 2 ity of cream 00:00: (two) [place] 00 times Medical daily. Branch albuterol 2020-09 Yes [id number] 2{puff} Inhale 2 [facility] (PROAIR 1-09 Puffs ity of HFA) 90 00:00: every 6 [place] mcg/actuati 00 (six) Medical on inhaler hours as Branc h needed for Wheezing or Shortness of Breath. triamcinolo 2020-09 Yes [id number] Apply to [facility] ne 0.025 % 10-04 area(s) 3 ity of ointment 00:00: (three) [place] 00 times Medical daily. For Branch itching cyanocobala 2020-09 Yes [id number] 1000ug 1 mL by [facility] min 1,000 1-09 Intramuscu ity of mcg/mL 00:00: lar route [place] injection 00 every 2 Medical (two) Branch weeks. levothyroxi 2020-09 Yes [id number] 50ug Take 1 [facility] ne 50 mcg -09 tablet by ity o f tablet 00:00: mouth [place] 00 every Medical morning. Branch fluticasone 2020-09 Yes [id number] 2{puff} Inhale 2 [facility] propionate 1-09 Puffs ity of (FLOVENT 00:00: every 12 [place] HFA) 110 00 (twelve) Medical mcg/actuati hours. Branch on inhaler Rinse mouth after each use. levalbutero 2020-09 Yes [id number] .63mg Inhale [facility] l 0.63 mg/3 1-09 0.63 mg 3 ity of mL 00:00: (three) [place] nebulizer 00 times Medical solution daily as Branch needed for Wheezing or Shortness of Breath. clotrimazol 2020-09 Yes [id number] Apply to [facility] e-betametha - area(s) 2 ity of sone cream 00:00: (two) [place] 00 times Medical daily. Branch cyclobenzap 2020-09 Yes [id number] TAKE 1 [facility] rine 5 mg -09 TABLET BY ity o f tablet 00:00: MOUTH [place] 00 EVERY 8 Medical HOURS Branch NEEDED econazole 2020-09 Yes [id number] Apply to [facility] nitrate 1 % 10-04 area(s) 2 ity of cream 00:00: (two) [place] 00 times Medical daily. Branch albuterol 2020-09 Yes [id number] 2{puff} Inhale 2 [facility] (PROAIR 1-09 Puffs ity of HFA) 90 00:00: every 6 [place] mcg/actuati 00 (six) Medical on inhaler hours as Branc h needed for Wheezing or Shortness of Breath. triamcinolo 2020-09 Yes [id number] Apply to [facility] ne 0.025 % 10-04 area(s) 3 ity of ointment 00:00: (three) [place] 00 times Medical daily. For Branch itching cyanocobala 2020-09 Yes [id number] 1000ug 1 mL by [facility] min 1,000 -09 Intramuscu ity of mcg/mL 00:00: lar route [place] injection 00 every 2 Medical (two) Branch weeks. levothyroxi 2020-09 Yes [id number] 50ug Take 1 [facility] ne 50 mcg - tablet by ity o f tablet 00:00: mouth [place] 00 every Medical morning. Branch fluticasone 2020-09 Yes [id number] 2{puff} Inhale 2 [facility] propionate 1-09 Puffs ity of (FLOVENT 00:00: every 12 [place] HFA) 110 00 (twelve) Medical mcg/actuati hours. Branch on inhaler Rinse mouth after each use. levalbutero 2020-09 Yes [id number] .63mg Inhale [facility] l 0.63 mg/3 1-09 0.63 mg 3 ity of mL 00:00: (three) [place] nebulizer 00 times Medical solution daily as Branch needed for Wheezing or Shortness of Breath. clotrimazol 2020-09 Yes [id number] Apply to [facility] e-betametha -09 area(s) 2 ity of sone cream 00:00: (two) [place] 00 times Medical daily. Branch cyclobenzap 2020-09 Yes [id number] TAKE 1 [facility] rine 5 mg -09 TABLET BY ity o f tablet 00:00: MOUTH [place] 00 EVERY 8 Medical HOURS Branch NEEDED econazole 2020-09 Yes [id number] Apply to [facility] nitrate 1 % 09 area(s) 2 ity of cream 00:00: (two) [place] 00 times Medical daily. Branch albuterol 2020-09 Yes [id number] 2{puff} Inhale 2 [facility] (PROAIR 1-09 Puffs ity of HFA) 90 00:00: every 6 [place] mcg/actuati 00 (six) Medical on inhaler hours as Branc h needed for Wheezing or Shortness of Breath. triamcinolo 2020-09 Yes [id number] Apply to [facility] ne 0.025 % 10-04 area(s) 3 ity of ointment 00:00: (three) [place] 00 times Medical daily. For Branch itching cyanocobala 2020-09 Yes [id number] 1000ug 1 mL by [facility] min 1,000 09 Intramuscu ity of mcg/mL 00:00: lar route [place] injection 00 every 2 Medical (two) Branch weeks. levothyroxi 2020-09 Yes [id number] 50ug Take 1 [facility] ne 50 mcg 09 tablet by ity o f tablet 00:00: mouth [place] 00 every Medical morning. Branch fluticasone 2020-09 Yes [id number] 2{puff} Inhale 2 [facility] propionate 1-09 Puffs ity of (FLOVENT 00:00: every 12 [place] HFA) 110 00 (twelve) Medical mcg/actuati hours. Branch on inhaler Rinse mouth after each use. levalbutero 2020-09 Yes [id number] .63mg Inhale [facility] l 0.63 mg/3 1-09 0.63 mg 3 ity of mL 00:00: (three) [place] nebulizer 00 times Medical solution daily as Branch needed for Wheezing or Shortness of Breath. clotrimazol 2020-09 Yes [id number] Apply to [facility] e-betametha -09 area(s) 2 ity of sone cream 00:00: (two) [place] 00 times Medical daily. Branch cyclobenzap 2020-09 Yes [id number] TAKE 1 [facility] rine 5 mg -09 TABLET BY ity o f tablet 00:00: MOUTH [place] 00 EVERY 8 Medical HOURS Branch NEEDED econazole 2020-09 Yes [id number] Apply to [facility] nitrate 1 % 09 area(s) 2 ity of cream 00:00: (two) [place] 00 times Medical daily. Branch albuterol 2020-09 Yes [id number] 2{puff} Inhale 2 [facility] (PROAIR 1-09 Puffs ity of HFA) 90 00:00: every 6 [place] mcg/actuati 00 (six) Medical on inhaler hours as Branc h needed for Wheezing or Shortness of Breath. triamcinolo 2020-09 Yes [id number] Apply to [facility] ne 0.025 % 10-04 area(s) 3 ity of ointment 00:00: (three) [place] 00 times Medical daily. For Branch itching cyanocobala 2020-09 Yes [id number] 1000ug 1 mL by [facility] min 1,000 09 Intramuscu ity of mcg/mL 00:00: lar route [place] injection 00 every 2 Medical (two) Branch weeks. levothyroxi 2020-09 Yes [id number] 50ug Take 1 [facility] ne 50 mcg 09 tablet by ity o f tablet 00:00: mouth [place] 00 every Medical morning. Branch fluticasone 2020-09 Yes [id number] 2{puff} Inhale 2 [facility] propionate 1-09 Puffs ity of (FLOVENT 00:00: every 12 [place] HFA) 110 00 (twelve) Medical mcg/actuati hours. Branch on inhaler Rinse mouth after each use. levalbutero 2020-09 Yes [id number] .63mg Inhale [facility] l 0.63 mg/3 1-09 0.63 mg 3 ity of mL 00:00: (three) [place] nebulizer 00 times Medical solution daily as Branch needed for Wheezing or Shortness of Breath. clotrimazol 2020-09 Yes [id number] Apply to [facility] e-betametha -09 area(s) 2 ity of sone cream 00:00: (two) [place] 00 times Medical daily. Branch cyclobenzap 2020-09 Yes [id number] TAKE 1 [facility] rine 5 mg 1-09 TABLET BY ity o f tablet 00:00: MOUTH [place] 00 EVERY 8 Medical HOURS Branch NEEDED econazole 2020-09 Yes [id number] Apply to [facility] nitrate 1 % 09 area(s) 2 ity of cream 00:00: (two) [place] 00 times Medical daily. Branch albuterol 2020-09 Yes [id number] 2{puff} Inhale 2 [facility] (PROAIR 1-09 Puffs ity of HFA) 90 00:00: every 6 [place] mcg/actuati 00 (six) Medical on inhaler hours as Branc h needed for Wheezing or Shortness of Breath. triamcinolo 2020-09 Yes [id number] Apply to [facility] ne 0.025 % 10-04 area(s) 3 ity of ointment 00:00: (three) [place] 00 times Medical daily. For Branch itching cyanocobala 2020-09 Yes [id number] 1000ug 1 mL by [facility] min 1,000 -09 Intramuscu ity of mcg/mL 00:00: lar route [place] injection 00 every 2 Medical (two) Branch weeks. levothyroxi 2020-09 Yes [id number] 50ug Take 1 [facility] ne 50 mcg -09 tablet by ity o f tablet 00:00: mouth [place] 00 every Medical morning. Branch fluticasone 2020-09 Yes [id number] 2{puff} Inhale 2 [facility] propionate 1-09 Puffs ity of (FLOVENT 00:00: every 12 [place] HFA) 110 00 (twelve) Medical mcg/actuati hours. Branch on inhaler Rinse mouth after each use. levalbutero 2020-09 Yes [id number] .63mg Inhale [facility] l 0.63 mg/3 1-09 0.63 mg 3 ity of mL 00:00: (three) [place] nebulizer 00 times Medical solution daily as Branch needed for Wheezing or Shortness of Breath. clotrimazol 2020-09 Yes [id number] Apply to [facility] e-betametha 09 area(s) 2 ity of sone cream 00:00: (two) [place] 00 times Medical daily. Branch cyclobenzap 2020-09 Yes [id number] TAKE 1 [facility] rine 5 mg 1-09 TABLET BY ity o f tablet 00:00: MOUTH [place] 00 EVERY 8 Medical HOURS Branch NEEDED econazole 2020-09 Yes [id number] Apply to [facility] nitrate 1 % 1-09 area(s) 2 ity of cream 00:00: (two) [place] 00 times Medical daily. Branch albuterol 2020-09 Yes [id number] 2{puff} Inhale 2 [facility] (PROAIR 1-09 Puffs ity of HFA) 90 00:00: every 6 [place] mcg/actuati 00 (six) Medical on inhaler hours as Branc h needed for Wheezing or Shortness of Breath. triamcinolo 2020-09 Yes [id number] Apply to [facility] ne 0.025 % 1-09 area(s) 3 ity of ointment 00:00: (three) [place] 00 times Medical daily. For Branch itching cyanocobala 2020-09 Yes [id number] 1000ug 1 mL by [facility] min 1,000 1-09 Intramuscu ity of mcg/mL 00:00: lar route [place] injection 00 every 2 Medical (two) Branch weeks. levothyroxi 2020-09 Yes [id number] 50ug Take 1 [facility] ne 50 mcg 1-09 tablet by ity o f tablet 00:00: mouth [place] 00 every Medical morning. Branch fluticasone 2020-09 Yes [id number] 2{puff} Inhale 2 [facility] propionate 1-09 Puffs ity of (FLOVENT 00:00: every 12 [place] HFA) 110 00 (twelve) Medical mcg/actuati hours. Branch on inhaler Rinse mouth after each use. levalbutero 2020-09 Yes [id number] .63mg Inhale [facility] l 0.63 mg/3 1-09 0.63 mg 3 ity of mL 00:00: (three) [place] nebulizer 00 times Medical solution daily as Branch needed for Wheezing or Shortness of Breath. clotrimazol 2020-09 Yes [id number] Apply to [facility] e-betametha 1-09 area(s) 2 ity of sone cream 00:00: (two) [place] 00 times Medical daily. Branch cyclobenzap 2020-09 Yes [id number] TAKE 1 [facility] rine 5 mg 1-09 TABLET BY ity o f tablet 00:00: MOUTH [place] 00 EVERY 8 Medical HOURS Branch NEEDED econazole 2020-09 Yes [id number] Apply to [facility] nitrate 1 % 10-04 area(s) 2 ity of cream 00:00: (two) [place] 00 times Medical daily. Branch albuterol 2020-09 Yes [id number] 2{puff} Inhale 2 [facility] (PROAIR 1-09 Puffs ity of HFA) 90 00:00: every 6 [place] mcg/actuati 00 (six) Medical on inhaler hours as Branc h needed for Wheezing or Shortness of Breath. triamcinolo 2020-09 Yes [id number] Apply to [facility] ne 0.025 % 10-04 area(s) 3 ity of ointment 00:00: (three) [place] 00 times Medical daily. For Branch itching cyanocobala 2020-09 Yes [id number] 1000ug 1 mL by [facility] min 1,000 09 Intramuscu ity of mcg/mL 00:00: lar route [place] injection 00 every 2 Medical (two) Branch weeks. fluticasone 2020-09 Yes [id number] 2{puff} Inhale 2 [facility] propionate 1-09 Puffs ity of (FLOVENT 00:00: every 12 [place] HFA) 110 00 (twelve) Medical mcg/actuati hours. Branch on inhaler Rinse mouth after each use. levalbutero 2020-09 Yes [id number] .63mg Inhale [facility] l 0.63 mg/3 -09 0.63 mg 3 ity of mL 00:00: (three) [place] nebulizer 00 times Medical solution daily as Branch needed for Wheezing or Shortness of Breath. clotrimazol 2020-09 Yes [id number] Apply to [facility] e-betametha 10-04 area(s) 2 ity of sone cream 00:00: (two) [place] 00 times Medical daily. Branch cyclobenzap 2020-09 Yes [id number] TAKE 1 [facility] rine 5 mg 10-04 TABLET BY ity o f tablet 00:00: MOUTH [place] 00 EVERY 8 Medical HOURS Branch NEEDED econazole 2020-09 Yes [id number] Apply to [facility] nitrate 1 % 10-04 area(s) 2 ity of cream 00:00: (two) [place] 00 times Medical daily. Branch albuterol 2020-09 Yes [id number] 2{puff} Inhale 2 [facility] (PROAIR 1-09 Puffs ity of HFA) 90 00:00: every 6 [place] mcg/actuati 00 (six) Medical on inhaler hours as Branc h needed for Wheezing or Shortness of Breath. triamcinolo 2020-09 Yes [id number] Apply to [facility] ne 0.025 % 10-04 area(s) 3 ity of ointment 00:00: (three) [place] 00 times Medical daily. For Branch itching cyanocobala 2020-09 Yes [id number] 1000ug 1 mL by [facility] min 1,000 09 Intramuscu ity of mcg/mL 00:00: lar route [place] injection 00 every 2 Medical (two) Branch weeks. fluticasone 2020-09 Yes [id number] 2{puff} Inhale 2 [facility] propionate -09 Puffs ity of (FLOVENT 00:00: every 12 [place] HFA) 110 00 (twelve) Medical mcg/actuati hours. Branch on inhaler Rinse mouth after each use. levalbutero 2020-09 Yes [id number] .63mg Inhale [facility] l 0.63 mg/3 -09 0.63 mg 3 ity of mL 00:00: (three) [place] nebulizer 00 times Medical solution daily as Branch needed for Wheezing or Shortness of Breath. clotrimazol 2020-09 Yes [id number] Apply to [facility] e-betametha 10-04 area(s) 2 ity of sone cream 00:00: (two) [place] 00 times Medical daily. Branch cyclobenzap 2020-09 Yes [id number] TAKE 1 [facility] rine 5 mg 10-04 TABLET BY ity o f tablet 00:00: MOUTH [place] 00 EVERY 8 Medical HOURS Branch NEEDED econazole 2020-09 Yes [id number] Apply to [facility] nitrate 1 % 09 area(s) 2 ity of cream 00:00: (two) [place] 00 times Medical daily. Branch albuterol 2020-09 Yes [id number] 2{puff} Inhale 2 [facility] (PROAIR 1-09 Puffs ity of HFA) 90 00:00: every 6 [place] mcg/actuati 00 (six) Medical on inhaler hours as Branc h needed for Wheezing or Shortness of Breath. triamcinolo 2020-09 Yes [id number] Apply to [facility] ne 0.025 % 1-09 area(s) 3 ity of ointment 00:00: (three) [place] 00 times Medical daily. For Branch itching cyanocobala 2020-09 Yes [id number] 1000ug 1 mL by [facility] min 1,000 1-09 Intramuscu ity of mcg/mL 00:00: lar route [place] injection 00 every 2 Medical (two) Branch weeks. levalbutero 2020-09 Yes [id number] .63mg Inhale [facility] l 0.63 mg/3 1-09 0.63 mg 3 ity of mL 00:00: (three) [place] nebulizer 00 times Medical solution daily as Branch needed for Wheezing or Shortness of Breath. cyclobenzap 2020-09 Yes [id number] TAKE 1 [facility] rine 5 mg 1-09 TABLET BY ity o f tablet 00:00: MOUTH [place] 00 EVERY 8 Medical HOURS Branch NEEDED albuterol 2020-09 Yes [id number] 2{puff} Inhale 2 [facility] (PROAIR 1-09 Puffs ity of HFA) 90 00:00: every 6 [place] mcg/actuati 00 (six) Medical on inhaler hours as Branc h needed for Wheezing or Shortness of Breath. cyanocobala 2020-09 Yes [id number] 1000ug 1 mL by [facility] min 1,000 1-09 Intramuscu ity of mcg/mL 00:00: lar route [place] injection 00 every 2 Medical (two) Branch weeks. levalbutero 2020-09 Yes [id number] .63mg Inhale [facility] l 0.63 mg/3 1-09 0.63 mg 3 ity of mL 00:00: (three) [place] nebulizer 00 times Medical solution daily as Branch needed for Wheezing or Shortness of Breath. cyclobenzap 2020-09 Yes [id number] TAKE 1 [facility] rine 5 mg 1-09 TABLET BY ity o f tablet 00:00: MOUTH [place] 00 EVERY 8 Medical HOURS Branch NEEDED albuterol 2020-09 Yes [id number] 2{puff} Inhale 2 [facility] (PROAIR 1-09 Puffs ity of HFA) 90 00:00: every 6 [place] mcg/actuati 00 (six) Medical on inhaler hours as Branc h needed for Wheezing or Shortness of Breath. cyanocobala 2020-09 Yes [id number] 1000ug 1 mL by [facility] min 1,000 1-09 Intramuscu ity of mcg/mL 00:00: lar route [place] injection 00 every 2 Medical (two) Branch weeks. levalbutero 2020-09 Yes [id number] .63mg Inhale [facility] l 0.63 mg/3 1-09 0.63 mg 3 ity of mL 00:00: (three) [place] nebulizer 00 times Medical solution daily as Branch needed for Wheezing or Shortness of Breath. cyclobenzap 2020-09 Yes [id number] TAKE 1 [facility] rine 5 mg 1-09 TABLET BY ity o f tablet 00:00: MOUTH [place] 00 EVERY 8 Medical HOURS Branch NEEDED albuterol 2020-09 Yes [id number] 2{puff} Inhale 2 [facility] (PROAIR 1-09 Puffs ity of HFA) 90 00:00: every 6 [place] mcg/actuati 00 (six) Medical on inhaler hours as Branc h needed for Wheezing or Shortness of Breath. cyanocobala 2020-09 Yes [id number] 1000ug 1 mL by [facility] min 1,000 1-09 Intramuscu ity of mcg/mL 00:00: lar route [place] injection 00 every 2 Medical (two) Branch weeks. levalbutero 2020-09 Yes [id number] .63mg Inhale [facility] l 0.63 mg/3 1-09 0.63 mg 3 ity of mL 00:00: (three) [place] nebulizer 00 times Medical solution daily as Branch needed for Wheezing or Shortness of Breath. cyclobenzap 2020-09 Yes [id number] TAKE 1 [facility] rine 5 mg 1-09 TABLET BY ity o f tablet 00:00: MOUTH [place] 00 EVERY 8 Medical HOURS Branch NEEDED albuterol 2020-09 Yes [id number] 2{puff} Inhale 2 [facility] (PROAIR 1-09 Puffs ity of HFA) 90 00:00: every 6 [place] mcg/actuati 00 (six) Medical on inhaler hours as Branc h needed for Wheezing or Shortness of Breath. cyanocobala 2020-09 Yes [id number] 1000ug 1 mL by [facility] min 1,000 1-09 Intramuscu ity of mcg/mL 00:00: lar route [place] injection 00 every 2 Medical (two) Branch weeks. levalbutero 2020-09 Yes [id number] .63mg Inhale [facility] l 0.63 mg/3 1-09 0.63 mg 3 ity of mL 00:00: (three) [place] nebulizer 00 times Medical solution daily as Branch needed for Wheezing or Shortness of Breath. cyclobenzap 2020-09 Yes [id number] TAKE 1 [facility] rine 5 mg 1-09 TABLET BY ity o f tablet 00:00: MOUTH [place] 00 EVERY 8 Medical HOURS Branch NEEDED albuterol 2020-09 Yes [id number] 2{puff} Inhale 2 [facility] (PROAIR 1-09 Puffs ity of HFA) 90 00:00: every 6 [place] mcg/actuati 00 (six) Medical on inhaler hours as Branc h needed for Wheezing or Shortness of Breath. cyanocobala 2020-09 Yes [id number] 1000ug 1 mL by [facility] min 1,000 1-09 Intramuscu ity of mcg/mL 00:00: lar route [place] injection 00 every 2 Medical (two) Branch weeks. levalbutero 2020-09 Yes [id number] .63mg Inhale [facility] l 0.63 mg/3 1-09 0.63 mg 3 ity of mL 00:00: (three) [place] nebulizer 00 times Medical solution daily as Branch needed for Wheezing or Shortness of Breath. cyclobenzap 2020-09 Yes [id number] TAKE 1 [facility] rine 5 mg 1-09 TABLET BY ity o f tablet 00:00: MOUTH [place] 00 EVERY 8 Medical HOURS Branch NEEDED albuterol 2020-09 Yes [id number] 2{puff} Inhale 2 [facility] (PROAIR 1-09 Puffs ity of HFA) 90 00:00: every 6 [place] mcg/actuati 00 (six) Medical on inhaler hours as Branc h needed for Wheezing or Shortness of Breath. cyanocobala 2020-09 Yes [id number] 1000ug 1 mL by [facility] min 1,000 1-09 Intramuscu ity of mcg/mL 00:00: lar route [place] injection 00 every 2 Medical (two) Branch weeks. levalbutero 2020-09 Yes [id number] .63mg Inhale [facility] l 0.63 mg/3 1-09 0.63 mg 3 ity of mL 00:00: (three) [place] nebulizer 00 times Medical solution daily as Branch needed for Wheezing or Shortness of Breath. cyclobenzap 2020-09 Yes [id number] TAKE 1 [facility] rine 5 mg 1-09 TABLET BY ity o f tablet 00:00: MOUTH [place] 00 EVERY 8 Medical HOURS Branch NEEDED albuterol 2020-09 Yes [id number] 2{puff} Inhale 2 [facility] (PROAIR 1-09 Puffs ity of HFA) 90 00:00: every 6 [place] mcg/actuati 00 (six) Medical on inhaler hours as Branc h needed for Wheezing or Shortness of Breath. cyanocobala 2020-09 Yes [id number] 1000ug 1 mL by [facility] min 1,000 1-09 Intramuscu ity of mcg/mL 00:00: lar route [place] injection 00 every 2 Medical (two) Branch weeks. levalbutero 2020-09 Yes [id number] .63mg Inhale [facility] l 0.63 mg/3 1-09 0.63 mg 3 ity of mL 00:00: (three) [place] nebulizer 00 times Medical solution daily as Branch needed for Wheezing or Shortness of Breath. cyclobenzap 2020-09 Yes [id number] TAKE 1 [facility] rine 5 mg 1-09 TABLET BY ity o f tablet 00:00: MOUTH [place] 00 EVERY 8 Medical HOURS Branch NEEDED albuterol 2020-09 Yes [id number] 2{puff} Inhale 2 [facility] (PROAIR 1-09 Puffs ity of HFA) 90 00:00: every 6 [place] mcg/actuati 00 (six) Medical on inhaler hours as Branc h needed for Wheezing or Shortness of Breath. cyanocobala 2020-09 Yes [id number] 1000ug 1 mL by [facility] min 1,000 1-09 Intramuscu ity of mcg/mL 00:00: lar route [place] injection 00 every 2 Medical (two) Branch weeks. levalbutero 2020-09 Yes [id number] .63mg Inhale [facility] l 0.63 mg/3 1-09 0.63 mg 3 ity of mL 00:00: (three) [place] nebulizer 00 times Medical solution daily as Branch needed for Wheezing or Shortness of Breath. cyclobenzap 2020-09 Yes [id number] TAKE 1 [facility] rine 5 mg 1-09 TABLET BY ity o f tablet 00:00: MOUTH [place] 00 EVERY 8 Medical HOURS Branch NEEDED albuterol 2020-09 Yes [id number] 2{puff} Inhale 2 [facility] (PROAIR 1-09 Puffs ity of HFA) 90 00:00: every 6 [place] mcg/actuati 00 (six) Medical on inhaler hours as Branc h needed for Wheezing or Shortness of Breath. levalbutero 2020-09 Yes [id number] .63mg Inhale [facility] l 0.63 mg/3 1-09 0.63 mg 3 ity of mL 00:00: (three) [place] nebulizer 00 times Medical solution daily as Branch needed for Wheezing or Shortness of Breath. cyclobenzap 2020-09 Yes [id number] TAKE 1 [facility] rine 5 mg 1-09 TABLET BY ity o f tablet 00:00: MOUTH [place] 00 EVERY 8 Medical HOURS Branch NEEDED albuterol 2020-09 Yes [id number] 2{puff} Inhale 2 [facility] (PROAIR 1-09 Puffs ity of HFA) 90 00:00: every 6 [place] mcg/actuati 00 (six) Medical on inhaler hours as Branc h needed for Wheezing or Shortness of Breath. levalbutero 2020-09 Yes [id number] .63mg Inhale [facility] l 0.63 mg/3 1-09 0.63 mg 3 ity of mL 00:00: (three) [place] nebulizer 00 times Medical solution daily as Branch needed for Wheezing or Shortness of Breath. cyclobenzap 2020-09 Yes [id number] TAKE 1 [facility] rine 5 mg 1-09 TABLET BY ity o f tablet 00:00: MOUTH [place] 00 EVERY 8 Medical HOURS Branch NEEDED albuterol 2020-09 Yes [id number] 2{puff} Inhale 2 [facility] (PROAIR 1-09 Puffs ity of HFA) 90 00:00: every 6 [place] mcg/actuati 00 (six) Medical on inhaler hours as Branc h needed for Wheezing or Shortness of Breath. levalbutero 2020-09 Yes [id number] .63mg Inhale [facility] l 0.63 mg/3 1-09 0.63 mg 3 ity of mL 00:00: (three) [place] nebulizer 00 times Medical solution daily as Branch needed for Wheezing or Shortness of Breath. cyclobenzap 2020-09 Yes [id number] TAKE 1 [facility] rine 5 mg 1-09 TABLET BY ity o f tablet 00:00: MOUTH [place] 00 EVERY 8 Medical HOURS Branch NEEDED albuterol 2020-09 Yes [id number] 2{puff} Inhale 2 [facility] (PROAIR 1-09 Puffs ity of HFA) 90 00:00: every 6 [place] mcg/actuati 00 (six) Medical on inhaler hours as Branc h needed for Wheezing or Shortness of Breath. levalbutero 2020-09 Yes [id number] .63mg Inhale [facility] l 0.63 mg/3 1-09 0.63 mg 3 ity of mL 00:00: (three) [place] nebulizer 00 times Medical solution daily as Branch needed for Wheezing or Shortness of Breath. cyclobenzap 2020-09 Yes [id number] TAKE 1 [facility] rine 5 mg 1-09 TABLET BY ity o f tablet 00:00: MOUTH [place] 00 EVERY 8 Medical HOURS Branch NEEDED albuterol 2020-09 Yes [id number] 2{puff} Inhale 2 [facility] (PROAIR 1-09 Puffs ity of HFA) 90 00:00: every 6 [place] mcg/actuati 00 (six) Medical on inhaler hours as Branc h needed for Wheezing or Shortness of Breath. levalbutero 2020-09 Yes [id number] .63mg Inhale [facility] l 0.63 mg/3 1-09 0.63 mg 3 ity of mL 00:00: (three) [place] nebulizer 00 times Medical solution daily as Branch needed for Wheezing or Shortness of Breath. cyclobenzap 2020-09 Yes [id number] TAKE 1 [facility] rine 5 mg 1-09 TABLET BY ity o f tablet 00:00: MOUTH [place] 00 EVERY 8 Medical HOURS Branch NEEDED albuterol 2020-09 Yes [id number] 2{puff} Inhale 2 [facility] (PROAIR 1-09 Puffs ity of HFA) 90 00:00: every 6 [place] mcg/actuati 00 (six) Medical on inhaler hours as Branc h needed for Wheezing or Shortness of Breath. levalbutero 2020-09 Yes [id number] .63mg Inhale [facility] l 0.63 mg/3 1-09 0.63 mg 3 ity of mL 00:00: (three) [place] nebulizer 00 times Medical solution daily as Branch needed for Wheezing or Shortness of Breath. cyclobenzap 2020-09 Yes [id number] TAKE 1 [facility] rine 5 mg 1-09 TABLET BY ity o f tablet 00:00: MOUTH [place] 00 EVERY 8 Medical HOURS Branch NEEDED albuterol 2020-09 Yes [id number] 2{puff} Inhale 2 [facility] (PROAIR 1-09 Puffs ity of HFA) 90 00:00: every 6 [place] mcg/actuati 00 (six) Medical on inhaler hours as Branc h needed for Wheezing or Shortness of Breath. levalbutero 2020-09 Yes [id number] .63mg Inhale [facility] l 0.63 mg/3 1-09 0.63 mg 3 ity of mL 00:00: (three) [place] nebulizer 00 times Medical solution daily as Branch needed for Wheezing or Shortness of Breath. cyclobenzap 2020-09 Yes [id number] TAKE 1 [facility] rine 5 mg 1-09 TABLET BY ity o f tablet 00:00: MOUTH [place] 00 EVERY 8 Medical HOURS Branch NEEDED albuterol 2020-09 Yes [id number] 2{puff} Inhale 2 [facility] (PROAIR 1-09 Puffs ity of HFA) 90 00:00: every 6 [place] mcg/actuati 00 (six) Medical on inhaler hours as Branc h needed for Wheezing or Shortness of Breath. levalbutero 2020-09 Yes [id number] .63mg Inhale [facility] l 0.63 mg/3 1-09 0.63 mg 3 ity of mL 00:00: (three) [place] nebulizer 00 times Medical solution daily as Branch needed for Wheezing or Shortness of Breath. cyclobenzap 2020-09 Yes [id number] TAKE 1 [facility] rine 5 mg 1-09 TABLET BY ity o f tablet 00:00: MOUTH [place] 00 EVERY 8 Medical HOURS Branch NEEDED albuterol 2020-09 Yes [id number] 2{puff} Inhale 2 [facility] (PROAIR 1-09 Puffs ity of HFA) 90 00:00: every 6 [place] mcg/actuati 00 (six) Medical on inhaler hours as Branc h needed for Wheezing or Shortness of Breath. levalbutero 2020-09 Yes [id number] .63mg Inhale [facility] 0.63 mg/3 1-09 0.63 mg 3 ity of mL 00:00: (three) [place] nebulizer 00 times Medical solution daily as Branch needed for Wheezing or Shortness of Breath. cyclobenzap 2020-09 Yes [id number] TAKE 1 [facility] rine 5 mg 1-09 TABLET BY ity o f tablet 00:00: MOUTH [place] 00 EVERY 8 Medical HOURS Branch NEEDED albuterol 2020-09 Yes [id number] 2{puff} Inhale 2 [facility] (PROAIR 1-09 Puffs ity of HFA) 90 00:00: every 6 [place] mcg/actuati 00 (six) Medical on inhaler hours as Branc h needed for Wheezing or Shortness of Breath. levalbutero 2020-09 Yes [id number] .63mg Inhale [facility] 0.63 mg/3 1-09 0.63 mg 3 ity of mL 00:00: (three) [place] nebulizer 00 times Medical solution daily as Branch needed for Wheezing or Shortness of Breath. cyclobenzap 2020-09 Yes [id number] TAKE 1 [facility] rine 5 mg 1-09 TABLET BY ity o f tablet 00:00: MOUTH [place] 00 EVERY 8 Medical HOURS Branch NEEDED albuterol 2020-09 Yes [id number] 2{puff} Inhale 2 [facility] (PROAIR 1-09 Puffs ity of HFA) 90 00:00: every 6 [place] mcg/actuati 00 (six) Medical on inhaler hours as Branc h needed for Wheezing or Shortness of Breath. levalbutero 2020-09 Yes [id number] .63mg Inhale [facility] l 0.63 mg/3 1-09 0.63 mg 3 ity of mL 00:00: (three) [place] nebulizer 00 times Medical solution daily as Branch needed for Wheezing or Shortness of Breath. cyclobenzap 2020-09 Yes [id number] TAKE 1 [facility] rine 5 mg 1-09 TABLET BY ity o f tablet 00:00: MOUTH [place] 00 EVERY 8 Medical HOURS Branch NEEDED albuterol 2020-09 Yes [id number] 2{puff} Inhale 2 [facility] (PROAIR 1-09 Puffs ity of HFA) 90 00:00: every 6 [place] mcg/actuati 00 (six) Medical on inhaler hours as Branc h needed for Wheezing or Shortness of Breath. levalbutero 2020-09 Yes [id number] .63mg Inhale [facility] l 0.63 mg/3 1-09 0.63 mg 3 ity of mL 00:00: (three) [place] nebulizer 00 times Medical solution daily as Branch needed for Wheezing or Shortness of Breath. cyclobenzap 2020-09 Yes [id number] TAKE 1 [facility] rine 5 mg 1-09 TABLET BY ity o f tablet 00:00: MOUTH [place] 00 EVERY 8 Medical HOURS Branch NEEDED albuterol 2020-09 Yes [id number] 2{puff} Inhale 2 [facility] (PROAIR 1-09 Puffs ity of HFA) 90 00:00: every 6 [place] mcg/actuati 00 (six) Medical on inhaler hours as Branc h needed for Wheezing or Shortness of Breath. levalbutero 2020-09 Yes [id number] .63mg Inhale [facility] l 0.63 mg/3 1-09 0.63 mg 3 ity of mL 00:00: (three) [place] nebulizer 00 times Medical solution daily as Branch needed for Wheezing or Shortness of Breath. cyclobenzap 2020-09 Yes [id number] TAKE 1 [facility] rine 5 mg 1-09 TABLET BY ity o f tablet 00:00: MOUTH [place] 00 EVERY 8 Medical HOURS Branch NEEDED albuterol 2020-09 Yes [id number] 2{puff} Inhale 2 [facility] (PROAIR 1-09 Puffs ity of HFA) 90 00:00: every 6 [place] mcg/actuati 00 (six) Medical on inhaler hours as Branc h needed for Wheezing or Shortness of Breath. levalbutero 2020-09 Yes [id number] .63mg Inhale [facility] l 0.63 mg/3 1-09 0.63 mg 3 ity of mL 00:00: (three) [place] nebulizer 00 times Medical solution daily as Branch needed for Wheezing or Shortness of Breath. cyclobenzap 2020-09 Yes [id number] TAKE 1 [facility] rine 5 mg 1-09 TABLET BY ity o f tablet 00:00: MOUTH [place] 00 EVERY 8 Medical HOURS Branch NEEDED albuterol 2020-09 Yes [id number] 2{puff} Inhale 2 [facility] (PROAIR 1-09 Puffs ity of HFA) 90 00:00: every 6 [place] mcg/actuati 00 (six) Medical on inhaler hours as Branc h needed for Wheezing or Shortness of Breath. levalbutero 2020-09 Yes [id number] .63mg Inhale [facility] l 0.63 mg/3 1-09 0.63 mg 3 ity of mL 00:00: (three) [place] nebulizer 00 times Medical solution daily as Branch needed for Wheezing or Shortness of Breath. cyclobenzap 2020-09 Yes [id number] TAKE 1 [facility] rine 5 mg 1-09 TABLET BY ity o f tablet 00:00: MOUTH [place] 00 EVERY 8 Medical HOURS Branch NEEDED albuterol 2020-09 Yes [id number] 2{puff} Inhale 2 [facility] (PROAIR 1-09 Puffs ity of HFA) 90 00:00: every 6 [place] mcg/actuati 00 (six) Medical on inhaler hours as Branc h needed for Wheezing or Shortness of Breath. levalbutero 2020-09 Yes [id number] .63mg Inhale [facility] l 0.63 mg/3 1-09 0.63 mg 3 ity of mL 00:00: (three) [place] nebulizer 00 times Medical solution daily as Branch needed for Wheezing or Shortness of Breath. cyclobenzap 2020-09 Yes [id number] TAKE 1 [facility] rine 5 mg 1-09 TABLET BY ity o f tablet 00:00: MOUTH [place] 00 EVERY 8 Medical HOURS Branch NEEDED albuterol 2020-09 Yes [id number] 2{puff} Inhale 2 [facility] (PROAIR 1-09 Puffs ity of HFA) 90 00:00: every 6 [place] mcg/actuati 00 (six) Medical on inhaler hours as Branc h needed for Wheezing or Shortness of Breath. levalbutero 2020-09 Yes [id number] .63mg Inhale [facility] l 0.63 mg/3 1-09 0.63 mg 3 ity of mL 00:00: (three) [place] nebulizer 00 times Medical solution daily as Branch needed for Wheezing or Shortness of Breath. cyclobenzap 2020-09 Yes [id number] TAKE 1 [facility] rine 5 mg 1-09 TABLET BY ity o f tablet 00:00: MOUTH [place] 00 EVERY 8 Medical HOURS Branch NEEDED albuterol 2020-09 Yes [id number] 2{puff} Inhale 2 [facility] (PROAIR 1-09 Puffs ity of HFA) 90 00:00: every 6 [place] mcg/actuati 00 (six) Medical on inhaler hours as Branc h needed for Wheezing or Shortness of Breath. levalbutero 2020-09 Yes [id number] .63mg Inhale [facility] l 0.63 mg/3 1-09 0.63 mg 3 ity of mL 00:00: (three) [place] nebulizer 00 times Medical solution daily as Branch needed for Wheezing or Shortness of Breath. cyclobenzap 2020-09 Yes [id number] TAKE 1 [facility] rine 5 mg 1-09 TABLET BY ity o f tablet 00:00: MOUTH [place] 00 EVERY 8 Medical HOURS Branch NEEDED albuterol 2020-09 Yes [id number] 2{puff} Inhale 2 [facility] (PROAIR 1-09 Puffs ity of HFA) 90 00:00: every 6 [place] mcg/actuati 00 (six) Medical on inhaler hours as Branc h needed for Wheezing or Shortness of Breath. levalbutero 2020-09 Yes [id number] .63mg Inhale [facility] l 0.63 mg/3 1-09 0.63 mg 3 ity of mL 00:00: (three) [place] nebulizer 00 times Medical solution daily as Branch needed for Wheezing or Shortness of Breath. albuterol 2020-09 Yes [id number] 2{puff} Inhale 2 [facility] (PROAIR 1-09 Puffs ity of HFA) 90 00:00: every 6 [place] mcg/actuati 00 (six) Medical on inhaler hours as Branc h needed for Wheezing or Shortness of Breath. levalbutero 2020-09 Yes [id number] .63mg Inhale [facility] l 0.63 mg/3 1-09 0.63 mg 3 ity of mL 00:00: (three) [place] nebulizer 00 times Medical solution daily as Branch needed for Wheezing or Shortness of Breath. albuterol 2020-09 Yes [id number] 2{puff} Inhale 2 [facility] (PROAIR 1-09 Puffs ity of HFA) 90 00:00: every 6 [place] mcg/actuati 00 (six) Medical on inhaler hours as Branc h needed for Wheezing or Shortness of Breath. levalbutero 2020-09 Yes [id number] .63mg Inhale [facility] l 0.63 mg/3 1-09 0.63 mg 3 ity of mL 00:00: (three) [place] nebulizer 00 times Medical solution daily as Branch needed for Wheezing or Shortness of Breath. albuterol 2020-09 Yes [id number] 2{puff} Inhale 2 [facility] (PROAIR 1-09 Puffs ity of HFA) 90 00:00: every 6 [place] mcg/actuati 00 (six) Medical on inhaler hours as Branc h needed for Wheezing or Shortness of Breath. levalbutero 2020-09 Yes [id number] .63mg Inhale [facility] l 0.63 mg/3 1-09 0.63 mg 3 ity of mL 00:00: (three) [place] nebulizer 00 times Medical solution daily as Branch needed for Wheezing or Shortness of Breath. albuterol 2020-09 Yes [id number] 2{puff} Inhale 2 [facility] (PROAIR 1-09 Puffs ity of HFA) 90 00:00: every 6 [place] mcg/actuati 00 (six) Medical on inhaler hours as Branc h needed for Wheezing or Shortness of Breath. levalbutero 2020-09 Yes [id number] .63mg Inhale [facility] l 0.63 mg/3 1-09 0.63 mg 3 ity of mL 00:00: (three) [place] nebulizer 00 times Medical solution daily as Branch needed for Wheezing or Shortness of Breath. albuterol 2020-09 Yes [id number] 2{puff} Inhale 2 [facility] (PROAIR 1-09 Puffs ity of HFA) 90 00:00: every 6 [place] mcg/actuati 00 (six) Medical on inhaler hours as Branc h needed for Wheezing or Shortness of Breath. levalbutero 2020-09 Yes [id number] .63mg Inhale [facility] l 0.63 mg/3 1-09 0.63 mg 3 ity of mL 00:00: (three) [place] nebulizer 00 times Medical solution daily as Branch needed for Wheezing or Shortness of Breath. albuterol 2020-09 Yes [id number] 2{puff} Inhale 2 [facility] (PROAIR 1-09 Puffs ity of HFA) 90 00:00: every 6 [place] mcg/actuati 00 (six) Medical on inhaler hours as Branc h needed for Wheezing or Shortness of Breath. levalbutero 2020-09 Yes [id number] .63mg Inhale [facility] l 0.63 mg/3 1-09 0.63 mg 3 ity of mL 00:00: (three) [place] nebulizer 00 times Medical solution daily as Branch needed for Wheezing or Shortness of Breath. albuterol 2020-09 Yes [id number] 2{puff} Inhale 2 [facility] (PROAIR 1-09 Puffs ity of HFA) 90 00:00: every 6 [place] mcg/actuati 00 (six) Medical on inhaler hours as Branc h needed for Wheezing or Shortness of Breath. levalbutero 2020-09 Yes [id number] .63mg Inhale [facility] l 0.63 mg/3 1-09 0.63 mg 3 ity of mL 00:00: (three) [place] nebulizer 00 times Medical solution daily as Branch needed for Wheezing or Shortness of Breath. albuterol 2020-09 Yes [id number] 2{puff} Inhale 2 [facility] (PROAIR 1-09 Puffs ity of HFA) 90 00:00: every 6 [place] mcg/actuati 00 (six) Medical on inhaler hours as Branc h needed for Wheezing or Shortness of Breath. levalbutero 2020-09 Yes [id number] .63mg Inhale [facility] l 0.63 mg/3 1-09 0.63 mg 3 ity of mL 00:00: (three) [place] nebulizer 00 times Medical solution daily as Branch needed for Wheezing or Shortness of Breath. albuterol 2020-09 Yes [id number] 2{puff} Inhale 2 [facility] (PROAIR 1-09 Puffs ity of HFA) 90 00:00: every 6 [place] mcg/actuati 00 (six) Medical on inhaler hours as Branc h needed for Wheezing or Shortness of Breath. levalbutero 2020-09 Yes [id number] .63mg Inhale [facility] l 0.63 mg/3 1-09 0.63 mg 3 ity of mL 00:00: (three) [place] nebulizer 00 times Medical solution daily as Branch needed for Wheezing or Shortness of Breath. albuterol 2020-09 Yes [id number] 2{puff} Inhale 2 [facility] (PROAIR 1-09 Puffs ity of HFA) 90 00:00: every 6 [place] mcg/actuati 00 (six) Medical on inhaler hours as Branc h needed for Wheezing or Shortness of Breath. levalbutero 2020-09 Yes [id number] .63mg Inhale [facility] l 0.63 mg/3 1-09 0.63 mg 3 ity of mL 00:00: (three) [place] nebulizer 00 times Medical solution daily as Branch needed for Wheezing or Shortness of Breath. albuterol 2020-09 Yes [id number] 2{puff} Inhale 2 [facility] (PROAIR 1-09 Puffs ity of HFA) 90 00:00: every 6 [place] mcg/actuati 00 (six) Medical on inhaler hours as Branc h needed for Wheezing or Shortness of Breath. levalbutero 2020-09 Yes [id number] .63mg Inhale [facility] l 0.63 mg/3 1-09 0.63 mg 3 ity of mL 00:00: (three) [place] nebulizer 00 times Medical solution daily as Branch needed for Wheezing or Shortness of Breath. albuterol 2020-09 Yes [id number] 2{puff} Inhale 2 [facility] (PROAIR 1-09 Puffs ity of HFA) 90 00:00: every 6 [place] mcg/actuati 00 (six) Medical on inhaler hours as Branc h needed for Wheezing or Shortness of Breath. levalbutero 2020-09 Yes [id number] .63mg Inhale [facility] l 0.63 mg/3 1-09 0.63 mg 3 ity of mL 00:00: (three) [place] nebulizer 00 times Medical solution daily as Branch needed for Wheezing or Shortness of Breath. albuterol 2020-09 Yes [id number] 2{puff} Inhale 2 [facility] (PROAIR 1-09 Puffs ity of HFA) 90 00:00: every 6 [place] mcg/actuati 00 (six) Medical on inhaler hours as Branc h needed for Wheezing or Shortness of Breath. levalbutero 2020-09 Yes [id number] .63mg Inhale [facility] l 0.63 mg/3 1-09 0.63 mg 3 ity of mL 00:00: (three) [place] nebulizer 00 times Medical solution daily as Branch needed for Wheezing or Shortness of Breath. albuterol 2020-09 Yes [id number] 2{puff} Inhale 2 [facility] (PROAIR 1-09 Puffs ity of HFA) 90 00:00: every 6 [place] mcg/actuati 00 (six) Medical on inhaler hours as Branc h needed for Wheezing or Shortness of Breath. levalbutero 2020-09 Yes [id number] .63mg Inhale [facility] l 0.63 mg/3 1-09 0.63 mg 3 ity of mL 00:00: (three) [place] nebulizer 00 times Medical solution daily as Branch needed for Wheezing or Shortness of Breath. albuterol 2020-09 Yes [id number] 2{puff} Inhale 2 [facility] (PROAIR 1-09 Puffs ity of HFA) 90 00:00: every 6 [place] mcg/actuati 00 (six) Medical on inhaler hours as Branc h needed for Wheezing or Shortness of Breath. levalbutero 2020-09 Yes [id number] .63mg Inhale [facility] l 0.63 mg/3 1-09 0.63 mg 3 ity of mL 00:00: (three) [place] nebulizer 00 times Medical solution daily as Branch needed for Wheezing or Shortness of Breath. albuterol 2020-09 Yes [id number] 2{puff} Inhale 2 [facility] (PROAIR 1-09 Puffs ity of HFA) 90 00:00: every 6 [place] mcg/actuati 00 (six) Medical on inhaler hours as Branc h needed for Wheezing or Shortness of Breath. levalbutero 2020-09 Yes [id number] .63mg Inhale [facility] l 0.63 mg/3 1-09 0.63 mg 3 ity of mL 00:00: (three) [place] nebulizer 00 times Medical solution daily as Branch needed for Wheezing or Shortness of Breath. albuterol 2020-09 Yes [id number] 2{puff} Inhale 2 [facility] (PROAIR 1-09 Puffs ity of HFA) 90 00:00: every 6 [place] mcg/actuati 00 (six) Medical on inhaler hours as Branc h needed for Wheezing or Shortness of Breath. levalbutero 2020-09 Yes [id number] .63mg Inhale [facility] l 0.63 mg/3 1-09 0.63 mg 3 ity of mL 00:00: (three) [place] nebulizer 00 times Medical solution daily as Branch needed for Wheezing or Shortness of Breath. albuterol 2020-09 Yes [id number] 2{puff} Inhale 2 [facility] (PROAIR 1-09 Puffs ity of HFA) 90 00:00: every 6 [place] mcg/actuati 00 (six) Medical on inhaler hours as Branc h needed for Wheezing or Shortness of Breath. levalbutero 2020-09 Yes [id number] .63mg Inhale [facility] l 0.63 mg/3 1-09 0.63 mg 3 ity of mL 00:00: (three) [place] nebulizer 00 times Medical solution daily as Branch needed for Wheezing or Shortness of Breath. albuterol 2020-09 Yes [id number] 2{puff} Inhale 2 [facility] (PROAIR 1-09 Puffs ity of HFA) 90 00:00: every 6 [place] mcg/actuati 00 (six) Medical on inhaler hours as Branc h needed for Wheezing or Shortness of Breath. levalbutero 2020-09 Yes [id number] .63mg Inhale [facility] l 0.63 mg/3 1-09 0.63 mg 3 ity of mL 00:00: (three) [place] nebulizer 00 times Medical solution daily as Branch needed for Wheezing or Shortness of Breath. albuterol 2020-09 Yes [id number] 2{puff} Inhale 2 [facility] (PROAIR 1-09 Puffs ity of HFA) 90 00:00: every 6 [place] mcg/actuati 00 (six) Medical on inhaler hours as Branc h needed for Wheezing or Shortness of Breath. levalbutero 2020-09 Yes [id number] .63mg Inhale [facility] l 0.63 mg/3 1-09 0.63 mg 3 ity of mL 00:00: (three) [place] nebulizer 00 times Medical solution daily as Branch needed for Wheezing or Shortness of Breath. albuterol 2020-09 Yes [id number] 2{puff} Inhale 2 [facility] (PROAIR 1-09 Puffs ity of HFA) 90 00:00: every 6 [place] mcg/actuati 00 (six) Medical on inhaler hours as Branc h needed for Wheezing or Shortness of Breath. levalbutero 2020-09 Yes [id number] .63mg Inhale [facility] l 0.63 mg/3 1-09 0.63 mg 3 ity of mL 00:00: (three) [place] nebulizer 00 times Medical solution daily as Branch needed for Wheezing or Shortness of Breath. albuterol 2020-09 Yes [id number] 2{puff} Inhale 2 [facility] (PROAIR 1-09 Puffs ity of HFA) 90 00:00: every 6 [place] mcg/actuati 00 (six) Medical on inhaler hours as Branc h needed for Wheezing or Shortness of Breath. levalbutero 2020-09 Yes [id number] .63mg Inhale [facility] l 0.63 mg/3 1-09 0.63 mg 3 ity of mL 00:00: (three) [place] nebulizer 00 times Medical solution daily as Branch needed for Wheezing or Shortness of Breath. albuterol 2020-09 Yes [id number] 2{puff} Inhale 2 [facility] (PROAIR 1-09 Puffs ity of HFA) 90 00:00: every 6 [place] mcg/actuati 00 (six) Medical on inhaler hours as Branc h needed for Wheezing or Shortness of Breath. levalbutero 2020-09 Yes [id number] .63mg Inhale [facility] l 0.63 mg/3 1-09 0.63 mg 3 ity of mL 00:00: (three) [place] nebulizer 00 times Medical solution daily as Branch needed for Wheezing or Shortness of Breath. albuterol 2020-09 Yes [id number] 2{puff} Inhale 2 [facility] (PROAIR 1-09 Puffs ity of HFA) 90 00:00: every 6 [place] mcg/actuati 00 (six) Medical on inhaler hours as Branc h needed for Wheezing or Shortness of Breath. levalbutero 2020-09 Yes [id number] .63mg Inhale [facility] l 0.63 mg/3 1-09 0.63 mg 3 ity of mL 00:00: (three) [place] nebulizer 00 times Medical solution daily as Branch needed for Wheezing or Shortness of Breath. albuterol 2020-09 Yes [id number] 2{puff} Inhale 2 [facility] (PROAIR 1-09 Puffs ity of HFA) 90 00:00: every 6 [place] mcg/actuati 00 (six) Medical on inhaler hours as Branc h needed for Wheezing or Shortness of Breath. levalbutero 2020-09 Yes [id number] .63mg Inhale [facility] l 0.63 mg/3 1-09 0.63 mg 3 ity of mL 00:00: (three) [place] nebulizer 00 times Medical solution daily as Branch needed for Wheezing or Shortness of Breath. albuterol 2020-09 Yes [id number] 2{puff} Inhale 2 [facility] (PROAIR 1-09 Puffs ity of HFA) 90 00:00: every 6 [place] mcg/actuati 00 (six) Medical on inhaler hours as Branc h needed for Wheezing or Shortness of Breath. levalbutero 2020-09 Yes [id number] .63mg Inhale [facility] l 0.63 mg/3 1-09 0.63 mg 3 ity of mL 00:00: (three) [place] nebulizer 00 times Medical solution daily as Branch needed for Wheezing or Shortness of Breath. albuterol 2020-09 Yes [id number] 2{puff} Inhale 2 [facility] (PROAIR 1-09 Puffs ity of HFA) 90 00:00: every 6 [place] mcg/actuati 00 (six) Medical on inhaler hours as Branc h needed for Wheezing or Shortness of Breath. levalbutero 2020-09 Yes [id number] .63mg Inhale [facility] l 0.63 mg/3 1-09 0.63 mg 3 ity of mL 00:00: (three) [place] nebulizer 00 times Medical solution daily as Branch needed for Wheezing or Shortness of Breath. albuterol 2020-09 Yes [id number] 2{puff} Inhale 2 [facility] (PROAIR 1-09 Puffs ity of HFA) 90 00:00: every 6 [place] mcg/actuati 00 (six) Medical on inhaler hours as Branc h needed for Wheezing or Shortness of Breath. levalbutero 2020-09 Yes [id number] .63mg Inhale [facility] l 0.63 mg/3 1-09 0.63 mg 3 ity of mL 00:00: (three) [place] nebulizer 00 times Medical solution daily as Branch needed for Wheezing or Shortness of Breath. albuterol 2020-09 Yes [id number] 2{puff} Inhale 2 [facility] (PROAIR 1-09 Puffs ity of HFA) 90 00:00: every 6 [place] mcg/actuati 00 (six) Medical on inhaler hours as Branc h needed for Wheezing or Shortness of Breath. levalbutero 2020-09 Yes [id number] .63mg Inhale [facility] l 0.63 mg/3 1-09 0.63 mg 3 ity of mL 00:00: (three) [place] nebulizer 00 times Medical solution daily as Branch needed for Wheezing or Shortness of Breath. albuterol 2020-09 Yes [id number] 2{puff} Inhale 2 [facility] (PROAIR 1-09 Puffs ity of HFA) 90 00:00: every 6 [place] mcg/actuati 00 (six) Medical on inhaler hours as Branc h needed for Wheezing or Shortness of Breath. levalbutero 2020-09 Yes [id number] .63mg Inhale [facility] l 0.63 mg/3 1-09 0.63 mg 3 ity of mL 00:00: (three) [place] nebulizer 00 times Medical solution daily as Branch needed for Wheezing or Shortness of Breath. albuterol 2020-09 Yes [id number] 2{puff} Inhale 2 [facility] (PROAIR 1-09 Puffs ity of HFA) 90 00:00: every 6 [place] mcg/actuati 00 (six) Medical on inhaler hours as Branc h needed for Wheezing or Shortness of Breath. levalbutero 2020-09 Yes [id number] .63mg Inhale [facility] l 0.63 mg/3 1-09 0.63 mg 3 ity of mL 00:00: (three) [place] nebulizer 00 times Medical solution daily as Branch needed for Wheezing or Shortness of Breath. albuterol 2020-09 Yes [id number] 2{puff} Inhale 2 [facility] (PROAIR 1-09 Puffs ity of HFA) 90 00:00: every 6 [place] mcg/actuati 00 (six) Medical on inhaler hours as Branc h needed for Wheezing or Shortness of Breath. levalbutero 2020-09 Yes [id number] .63mg Inhale [facility] l 0.63 mg/3 1-09 0.63 mg 3 ity of mL 00:00: (three) [place] nebulizer 00 times Medical solution daily as Branch needed for Wheezing or Shortness of Breath. albuterol 2020-09 Yes [id number] 2{puff} Inhale 2 [facility] (PROAIR 1-09 Puffs ity of HFA) 90 00:00: every 6 [place] mcg/actuati 00 (six) Medical on inhaler hours as Branc h needed for Wheezing or Shortness of Breath. levalbutero 2020-09 Yes [id number] .63mg Inhale [facility] l 0.63 mg/3 1-09 0.63 mg 3 ity of mL 00:00: (three) [place] nebulizer 00 times Medical solution daily as Branch needed for Wheezing or Shortness of Breath. albuterol 2020-09 Yes [id number] 2{puff} Inhale 2 [facility] (PROAIR 1-09 Puffs ity of HFA) 90 00:00: every 6 [place] mcg/actuati 00 (six) Medical on inhaler hours as Branc h needed for Wheezing or Shortness of Breath. levalbutero 2020-09 Yes [id number] .63mg Inhale [facility] l 0.63 mg/3 1-09 0.63 mg 3 ity of mL 00:00: (three) [place] nebulizer 00 times Medical solution daily as Branch needed for Wheezing or Shortness of Breath. albuterol 2020-09 Yes [id number] 2{puff} Inhale 2 [facility] (PROAIR 1-09 Puffs ity of HFA) 90 00:00: every 6 [place] mcg/actuati 00 (six) Medical on inhaler hours as Branc h needed for Wheezing or Shortness of Breath. levalbutero 2020-09 Yes [id number] .63mg Inhale [facility] l 0.63 mg/3 1-09 0.63 mg 3 ity of mL 00:00: (three) [place] nebulizer 00 times Medical solution daily as Branch needed for Wheezing or Shortness of Breath. albuterol 2020-09 Yes [id number] 2{puff} Inhale 2 [facility] (PROAIR 1-09 Puffs ity of HFA) 90 00:00: every 6 [place] mcg/actuati 00 (six) Medical on inhaler hours as Branc h needed for Wheezing or Shortness of Breath. levalbutero 2020-09 Yes [id number] .63mg Inhale [facility] l 0.63 mg/3 1-09 0.63 mg 3 ity of mL 00:00: (three) [place] nebulizer 00 times Medical solution daily as Branch needed for Wheezing or Shortness of Breath. albuterol 2020-09 Yes [id number] 2{puff} Inhale 2 [facility] (PROAIR 1-09 Puffs ity of HFA) 90 00:00: every 6 [place] mcg/actuati 00 (six) Medical on inhaler hours as Branc h needed for Wheezing or Shortness of Breath. levalbutero 2020-09 Yes [id number] .63mg Inhale [facility] l 0.63 mg/3 1-09 0.63 mg 3 ity of mL 00:00: (three) [place] nebulizer 00 times Medical solution daily as Branch needed for Wheezing or Shortness of Breath. albuterol 2020-09 Yes [id number] 2{puff} Inhale 2 [facility] (PROAIR 1-09 Puffs ity of HFA) 90 00:00: every 6 [place] mcg/actuati 00 (six) Medical on inhaler hours as Branc h needed for Wheezing or Shortness of Breath. levalbutero 2020-09 Yes [id number] .63mg Inhale [facility] l 0.63 mg/3 1-09 0.63 mg 3 ity of mL 00:00: (three) [place] nebulizer 00 times Medical solution daily as Branch needed for Wheezing or Shortness of Breath. albuterol 2020-09 Yes [id number] 2{puff} Inhale 2 [facility] (PROAIR 1-09 Puffs ity of HFA) 90 00:00: every 6 [place] mcg/actuati 00 (six) Medical on inhaler hours as Branc h needed for Wheezing or Shortness of Breath. levalbutero 2020-09 Yes [id number] .63mg Inhale [facility] l 0.63 mg/3 1-09 0.63 mg 3 ity of mL 00:00: (three) [place] nebulizer 00 times Medical solution daily as Branch needed for Wheezing or Shortness of Breath. albuterol 2020-09 Yes [id number] 2{puff} Inhale 2 [facility] (PROAIR 1-09 Puffs ity of HFA) 90 00:00: every 6 [place] mcg/actuati 00 (six) Medical on inhaler hours as Branc h needed for Wheezing or Shortness of Breath. levalbutero 2020-09 Yes [id number] .63mg Inhale [facility] l 0.63 mg/3 1-09 0.63 mg 3 ity of mL 00:00: (three) [place] nebulizer 00 times Medical solution daily as Branch needed for Wheezing or Shortness of Breath. albuterol 2020-09 Yes [id number] 2{puff} Inhale 2 [facility] (PROAIR 1-09 Puffs ity of HFA) 90 00:00: every 6 [place] mcg/actuati 00 (six) Medical on inhaler hours as Branc h needed for Wheezing or Shortness of Breath. levalbutero 2020-09 Yes [id number] .63mg Inhale [facility] l 0.63 mg/3 1-09 0.63 mg 3 ity of mL 00:00: (three) [place] nebulizer 00 times Medical solution daily as Branch needed for Wheezing or Shortness of Breath. albuterol 2020-09 Yes [id number] 2{puff} Inhale 2 [facility] (PROAIR 1-09 Puffs ity of HFA) 90 00:00: every 6 [place] mcg/actuati 00 (six) Medical on inhaler hours as Branc h needed for Wheezing or Shortness of Breath. rosuvastati 2020-09 Yes [id number] 10mg Take 1 [facility] n 10 mg 1-09 tablet by ity of tablet 00:00: mouth at [place] 00 bedtime. Medical Branch cyanocobala 2020-09 Yes [id number] 1000ug 1 mL by [facility] min 1,000 1-09 Intramuscu ity of mcg/mL 00:00: lar route [place] injection 00 every 2 Medical (two) Branch weeks. levothyroxi 2020-09 Yes [id number] 50ug Take 1 [facility] ne 50 mcg 1-09 tablet by ity o f tablet 00:00: mouth [place] 00 every Medical morning. Branch fluticasone 2020-09 Yes [id number] 2{puff} Inhale 2 [facility] propionate 1-09 Puffs ity of (FLOVENT 00:00: every 12 [place] HFA) 110 00 (twelve) Medical mcg/actuati hours. Branch on inhaler Rinse mouth after each use. levalbutero 2020-09 Yes [id number] .63mg Inhale [facility] l 0.63 mg/3 1-09 0.63 mg 3 ity of mL 00:00: (three) [place] nebulizer 00 times Medical solution daily as Branch needed for Wheezing or Shortness of Breath. losartan 50 2020-09 Yes [id number] 50mg Take 1 [facility] mg tablet -09 tablet by ity o f 00:00: mouth 2 [place] 00 (two) Medical times Branch daily. clotrimazol 2020-09 Yes [id number] Apply to [facility] e-betametha -09 area(s) 2 ity of sone cream 00:00: (two) [place] 00 times Medical daily. Branch cyclobenzap 2020-09 Yes [id number] TAKE 1 [facility] rine 5 mg 09 TABLET BY ity o f tablet 00:00: MOUTH [place] 00 EVERY 8 Medical HOURS Branch NEEDED econazole 2020-09 Yes [id number] Apply to [facility] nitrate 1 % 09 area(s) 2 ity of cream 00:00: (two) [place] 00 times Medical daily. Branch albuterol 2020-09 Yes [id number] 2{puff} Inhale 2 [facility] (PROAIR 1-09 Puffs ity of HFA) 90 00:00: every 6 [place] mcg/actuati 00 (six) Medical on inhaler hours as Branc h needed for Wheezing or Shortness of Breath. triamcinolo 2020-09 Yes [id number] Apply to [facility] ne 0.025 % 09 area(s) 3 ity of ointment 00:00: (three) [place] 00 times Medical daily. For Branch itching diltiazem 2020-09 Yes [id number] 120mg Take 1 [facility] (CARTIA XT) -09 capsule by it y of 120 mg 24 00:00: mouth 2 [place] hr capsule 00 (two) Medical times Branch daily. rosuvastati 2020-09 Yes [id number] 10mg Take 1 [facility] n 10 mg -09 tablet by ity of tablet 00:00: mouth at [place] 00 bedtime. Medical Branch cyanocobala 2020-09 Yes [id number] 1000ug 1 mL by [facility] min 1,000 1-09 Intramuscu ity of mcg/mL 00:00: lar route [place] injection 00 every 2 Medical (two) Branch weeks. levothyroxi 2020-09 Yes [id number] 50ug Take 1 [facility] ne 50 mcg 1-09 tablet by ity o f tablet 00:00: mouth [place] 00 every Medical morning. Branch fluticasone 2020-09 Yes [id number] 2{puff} Inhale 2 [facility] propionate 1-09 Puffs ity of (FLOVENT 00:00: every 12 [place] HFA) 110 00 (twelve) Medical mcg/actuati hours. Branch on inhaler Rinse mouth after each use. levalbutero 2020-09 Yes [id number] .63mg Inhale [facility] l 0.63 mg/3 1-09 0.63 mg 3 ity of mL 00:00: (three) [place] nebulizer 00 times Medical solution daily as Branch needed for Wheezing or Shortness of Breath. losartan 50 2020-09 Yes [id number] 50mg Take 1 [facility] mg tablet -09 tablet by ity o f 00:00: mouth 2 [place] 00 (two) Medical times Branch daily. clotrimazol 2020-09 Yes [id number] Apply to [facility] e-betametha -09 area(s) 2 ity of sone cream 00:00: (two) [place] 00 times Medical daily. Branch cyclobenzap 2020-09 Yes [id number] TAKE 1 [facility] rine 5 mg 1-09 TABLET BY ity o f tablet 00:00: MOUTH [place] 00 EVERY 8 Medical HOURS Branch NEEDED econazole 2020-09 Yes [id number] Apply to [facility] nitrate 1 % -09 area(s) 2 ity of cream 00:00: (two) [place] 00 times Medical daily. Branch albuterol 2020-09 Yes [id number] 2{puff} Inhale 2 [facility] (PROAIR 1-09 Puffs ity of HFA) 90 00:00: every 6 [place] mcg/actuati 00 (six) Medical on inhaler hours as Branc h needed for Wheezing or Shortness of Breath. triamcinolo 2020-09 Yes [id number] Apply to [facility] ne 0.025 % 1-09 area(s) 3 ity of ointment 00:00: (three) [place] 00 times Medical daily. For Branch itching diltiazem 2020-09 Yes [id number] 120mg Take 1 [facility] (CARTIA XT) 09 capsule by it y of 120 mg 24 00:00: mouth 2 [place] hr capsule 00 (two) Medical times Branch daily. cyanocobala 2020-09 Yes [id number] 1000ug 1 mL by [facility] min 1,000 -09 Intramuscu ity of mcg/mL 00:00: lar route [place] injection 00 every 2 Medical (two) Branch weeks. levothyroxi 2020-09 Yes [id number] 50ug Take 1 [facility] ne 50 mcg 09 tablet by ity o f tablet 00:00: mouth [place] 00 every Medical morning. Branch fluticasone 2020-09 Yes [id number] 2{puff} Inhale 2 [facility] propionate -09 Puffs ity of (FLOVENT 00:00: every 12 [place] HFA) 110 00 (twelve) Medical mcg/actuati hours. Branch on inhaler Rinse mouth after each use. levalbutero 2020-09 Yes [id number] .63mg Inhale [facility] l 0.63 mg/3 -09 0.63 mg 3 ity of mL 00:00: (three) [place] nebulizer 00 times Medical solution daily as Branch needed for Wheezing or Shortness of Breath. losartan 50 2020-09 Yes [id number] 50mg Take 1 [facility] mg tablet 09 tablet by ity o f 00:00: mouth 2 [place] 00 (two) Medical times Branch daily. clotrimazol 2020-09 Yes [id number] Apply to [facility] e-betametha 10-04 area(s) 2 ity of sone cream 00:00: (two) [place] 00 times Medical daily. Branch cyclobenzap 2020-09 Yes [id number] TAKE 1 [facility] rine 5 mg -09 TABLET BY ity o f tablet 00:00: MOUTH [place] 00 EVERY 8 Medical HOURS Branch NEEDED econazole 2020-09 Yes [id number] Apply to [facility] nitrate 1 % 09 area(s) 2 ity of cream 00:00: (two) [place] 00 times Medical daily. Branch albuterol 2020-09 Yes [id number] 2{puff} Inhale 2 [facility] (PROAIR 1-09 Puffs ity of HFA) 90 00:00: every 6 [place] mcg/actuati 00 (six) Medical on inhaler hours as Branc h needed for Wheezing or Shortness of Breath. triamcinolo 2020-09 Yes [id number] Apply to [facility] ne 0.025 % 1-09 area(s) 3 ity of ointment 00:00: (three) [place] 00 times Medical daily. For Branch itching diltiazem 2020-09 Yes [id number] 120mg Take 1 [facility] (CARTIA XT) 09 capsule by it y of 120 mg 24 00:00: mouth 2 [place] hr capsule 00 (two) Medical times Branch daily. cyanocobala 2020-09 Yes [id number] 1000ug 1 mL by [facility] min 1,000 1-09 Intramuscu ity of mcg/mL 00:00: lar route [place] injection 00 every 2 Medical (two) Branch weeks. levothyroxi 2020-09 Yes [id number] 50ug Take 1 [facility] ne 50 mcg -09 tablet by ity o f tablet 00:00: mouth [place] 00 every Medical morning. Branch fluticasone 2020-09 Yes [id number] 2{puff} Inhale 2 [facility] propionate 1-09 Puffs ity of (FLOVENT 00:00: every 12 [place] HFA) 110 00 (twelve) Medical mcg/actuati hours. Branch on inhaler Rinse mouth after each use. levalbutero 2020-09 Yes [id number] .63mg Inhale [facility] l 0.63 mg/3 1-09 0.63 mg 3 ity of mL 00:00: (three) [place] nebulizer 00 times Medical solution daily as Branch needed for Wheezing or Shortness of Breath. losartan 50 2020-09 Yes [id number] 50mg Take 1 [facility] mg tablet 1-09 tablet by ity o f 00:00: mouth 2 [place] 00 (two) Medical times Branch daily. clotrimazol 2020-09 Yes [id number] Apply to [facility] e-betametha -09 area(s) 2 ity of sone cream 00:00: (two) [place] 00 times Medical daily. Branch cyclobenzap 2020-09 Yes [id number] TAKE 1 [facility] rine 5 mg 1-09 TABLET BY ity o f tablet 00:00: MOUTH [place] 00 EVERY 8 Medical HOURS Branch NEEDED econazole 2020-09 Yes [id number] Apply to [facility] nitrate 1 % 1-09 area(s) 2 ity of cream 00:00: (two) [place] 00 times Medical daily. Branch albuterol 2020-09 Yes [id number] 2{puff} Inhale 2 [facility] (PROAIR 1-09 Puffs ity of HFA) 90 00:00: every 6 [place] mcg/actuati 00 (six) Medical on inhaler hours as Branc h needed for Wheezing or Shortness of Breath. triamcinolo 2020-09 Yes [id number] Apply to [facility] ne 0.025 % 1-09 area(s) 3 ity of ointment 00:00: (three) [place] 00 times Medical daily. For Branch itching diltiazem 2020-09 Yes [id number] 120mg Take 1 [facility] (CARTIA XT) 1-09 capsule by it y of 120 mg 24 00:00: mouth 2 [place] hr capsule 00 (two) Medical times Branch daily. cyanocobala 2020-09 Yes [id number] 1000ug 1 mL by [facility] min 1,000 1-09 Intramuscu ity of mcg/mL 00:00: lar route [place] injection 00 every 2 Medical (two) Branch weeks. levothyroxi 2020-09 Yes [id number] 50ug Take 1 [facility] ne 50 mcg 1-09 tablet by ity o f tablet 00:00: mouth [place] 00 every Medical morning. Branch fluticasone 2020-09 Yes [id number] 2{puff} Inhale 2 [facility] propionate 1-09 Puffs ity of (FLOVENT 00:00: every 12 [place] HFA) 110 00 (twelve) Medical mcg/actuati hours. Branch on inhaler Rinse mouth after each use. levalbutero 2020-09 Yes [id number] .63mg Inhale [facility] l 0.63 mg/3 1-09 0.63 mg 3 ity of mL 00:00: (three) [place] nebulizer 00 times Medical solution daily as Branch needed for Wheezing or Shortness of Breath. losartan 50 2020-09 Yes [id number] 50mg Take 1 [facility] mg tablet 1-09 tablet by ity o f 00:00: mouth 2 [place] 00 (two) Medical times Branch daily. clotrimazol 2020-09 Yes [id number] Apply to [facility] e-betametha 10-04 area(s) 2 ity of sone cream 00:00: (two) [place] 00 times Medical daily. Branch cyclobenzap 2020-09 Yes [id number] TAKE 1 [facility] rine 5 mg -09 TABLET BY ity o f tablet 00:00: MOUTH [place] 00 EVERY 8 Medical HOURS Branch NEEDED econazole 2020-09 Yes [id number] Apply to [facility] nitrate 1 % 10-04 area(s) 2 ity of cream 00:00: (two) [place] 00 times Medical daily. Branch albuterol 2020-09 Yes [id number] 2{puff} Inhale 2 [facility] (PROAIR -09 Puffs ity of HFA) 90 00:00: every 6 [place] mcg/actuati 00 (six) Medical on inhaler hours as Branc h needed for Wheezing or Shortness of Breath. triamcinolo 2020-09 Yes [id number] Apply to [facility] ne 0.025 % 10-04 area(s) 3 ity of ointment 00:00: (three) [place] 00 times Medical daily. For Branch itching diltiazem 2020-09 Yes [id number] 120mg Take 1 [facility] (CARTIA XT) 10-04 capsule by it y of 120 mg 24 00:00: mouth 2 [place] hr capsule 00 (two) Medical times Branch daily. cyanocobala 2020-09 Yes [id number] 1000ug 1 mL by [facility] min 1,000 -09 Intramuscu ity of mcg/mL 00:00: lar route [place] injection 00 every 2 Medical (two) Branch weeks. levothyroxi 2020-09 Yes [id number] 50ug Take 1 [facility] ne 50 mcg -09 tablet by ity o f tablet 00:00: mouth [place] 00 every Medical morning. Branch fluticasone 2020-09 Yes [id number] 2{puff} Inhale 2 [facility] propionate 1-09 Puffs ity of (FLOVENT 00:00: every 12 [place] HFA) 110 00 (twelve) Medical mcg/actuati hours. Branch on inhaler Rinse mouth after each use. levalbutero 2020-09 Yes [id number] .63mg Inhale [facility] l 0.63 mg/3 1-09 0.63 mg 3 ity of mL 00:00: (three) [place] nebulizer 00 times Medical solution daily as Branch needed for Wheezing or Shortness of Breath. losartan 50 2020-09 Yes [id number] 50mg Take 1 [facility] mg tablet -09 tablet by ity o f 00:00: mouth 2 [place] 00 (two) Medical times Branch daily. clotrimazol 2020-09 Yes [id number] Apply to [facility] e-betametha 10-04 area(s) 2 ity of sone cream 00:00: (two) [place] 00 times Medical daily. Branch cyclobenzap 2020-09 Yes [id number] TAKE 1 [facility] rine 5 mg -09 TABLET BY ity o f tablet 00:00: MOUTH [place] 00 EVERY 8 Medical HOURS Branch NEEDED econazole 2020-09 Yes [id number] Apply to [facility] nitrate 1 % 10-04 area(s) 2 ity of cream 00:00: (two) [place] 00 times Medical daily. Branch albuterol 2020-09 Yes [id number] 2{puff} Inhale 2 [facility] (PROAIR -09 Puffs ity of HFA) 90 00:00: every 6 [place] mcg/actuati 00 (six) Medical on inhaler hours as Branc h needed for Wheezing or Shortness of Breath. triamcinolo 2020-09 Yes [id number] Apply to [facility] ne 0.025 % 10-04 area(s) 3 ity of ointment 00:00: (three) [place] 00 times Medical daily. For Branch itching diltiazem 2020-09 Yes [id number] 120mg Take 1 [facility] (CARTIA XT) 09 capsule by it y of 120 mg 24 00:00: mouth 2 [place] hr capsule 00 (two) Medical times Branch daily. cyanocobala 2020-09 Yes [id number] 1000ug 1 mL by [facility] min 1,000 -09 Intramuscu ity of mcg/mL 00:00: lar route [place] injection 00 every 2 Medical (two) Branch weeks. levothyroxi 2020-09 Yes [id number] 50ug Take 1 [facility] ne 50 mcg -09 tablet by ity o f tablet 00:00: mouth [place] 00 every Medical morning. Branch fluticasone 2020-09 Yes [id number] 2{puff} Inhale 2 [facility] propionate 1-09 Puffs ity of (FLOVENT 00:00: every 12 [place] HFA) 110 00 (twelve) Medical mcg/actuati hours. Branch on inhaler Rinse mouth after each use. levalbutero 2020-09 Yes [id number] .63mg Inhale [facility] l 0.63 mg/3 1-09 0.63 mg 3 ity of mL 00:00: (three) [place] nebulizer 00 times Medical solution daily as Branch needed for Wheezing or Shortness of Breath. losartan 50 2020-09 Yes [id number] 50mg Take 1 [facility] mg tablet -09 tablet by ity o f 00:00: mouth 2 [place] 00 (two) Medical times Branch daily. clotrimazol 2020-09 Yes [id number] Apply to [facility] e-betametha -09 area(s) 2 ity of sone cream 00:00: (two) [place] 00 times Medical daily. Branch cyclobenzap 2020-09 Yes [id number] TAKE 1 [facility] rine 5 mg -09 TABLET BY ity o f tablet 00:00: MOUTH [place] 00 EVERY 8 Medical HOURS Branch NEEDED econazole 2020-09 Yes [id number] Apply to [facility] nitrate 1 % 10-04 area(s) 2 ity of cream 00:00: (two) [place] 00 times Medical daily. Branch albuterol 2020-09 Yes [id number] 2{puff} Inhale 2 [facility] (PROAIR 1-09 Puffs ity of HFA) 90 00:00: every 6 [place] mcg/actuati 00 (six) Medical on inhaler hours as Branc h needed for Wheezing or Shortness of Breath. triamcinolo 2020-09 Yes [id number] Apply to [facility] ne 0.025 % 10-04 area(s) 3 ity of ointment 00:00: (three) [place] 00 times Medical daily. For Branch itching diltiazem 2020-09 Yes [id number] 120mg Take 1 [facility] n[facility] (CARTIA XT) -09 capsule by it y of 120 mg 24 00:00: mouth 2 [place] hr capsule 00 (two) Medical times Branch daily. cyanocobala 2020-09 Yes [id number] 1000ug 1 mL by [facility] min 1,000 -09 Intramuscu ity of mcg/mL 00:00: lar route [place] injection 00 every 2 Medical (two) Branch weeks. levothyroxi 2020-09 Yes [id number] 50ug Take 1 [facility] ne 50 mcg 1-09 tablet by ity o f tablet 00:00: mouth [place] 00 every Medical morning. Branch fluticasone 2020-09 Yes [id number] 2{puff} Inhale 2 [facility] propionate 1-09 Puffs ity of (FLOVENT 00:00: every 12 [place] HFA) 110 00 (twelve) Medical mcg/actuati hours. Branch on inhaler Rinse mouth after each use. levalbutero 2020-09 Yes [id number] .63mg Inhale [facility] l 0.63 mg/3 1-09 0.63 mg 3 ity of mL 00:00: (three) [place] nebulizer 00 times Medical solution daily as Branch needed for Wheezing or Shortness of Breath. losartan 50 2020-09 Yes [id number] 50mg Take 1 [facility] mg tablet 1-09 tablet by ity o f 00:00: mouth 2 [place] 00 (two) Medical times Branch daily. clotrimazol 2020-09 Yes [id number] Apply to [facility] e-betametha -09 area(s) 2 ity of sone cream 00:00: (two) [place] 00 times Medical daily. Branch cyclobenzap 2020-09 Yes [id number] TAKE 1 [facility] rine 5 mg 1-09 TABLET BY ity o f tablet 00:00: MOUTH [place] 00 EVERY 8 Medical HOURS Branch NEEDED econazole 2020-09 Yes [id number] Apply to [facility] nitrate 1 % -09 area(s) 2 ity of cream 00:00: (two) [place] 00 times Medical daily. Branch albuterol 2020-09 Yes [id number] 2{puff} Inhale 2 [facility] (PROAIR 1-09 Puffs ity of HFA) 90 00:00: every 6 [place] mcg/actuati 00 (six) Medical on inhaler hours as Branc h needed for Wheezing or Shortness of Breath. triamcinolo 2020-09 Yes [id number] Apply to [facility] ne 0.025 % 1-09 area(s) 3 ity of ointment 00:00: (three) [place] 00 times Medical daily. For Branch itching diltiazem 2020-09 Yes [id number] 120mg Take 1 [facility] (CARTIA XT) 1-09 capsule by it y of 120 mg 24 00:00: mouth 2 [place] hr capsule 00 (two) Medical times Branch daily. cyanocobala 2020-09 Yes [id number] 1000ug 1 mL by [facility] min 1,000 1-09 Intramuscu ity of mcg/mL 00:00: lar route [place] injection 00 every 2 Medical (two) Branch weeks. levothyroxi 2020-09 Yes [id number] 50ug Take 1 [facility] ne 50 mcg 1-09 tablet by ity o f tablet 00:00: mouth [place] 00 every Medical morning. Branch fluticasone 2020-09 Yes [id number] 2{puff} Inhale 2 [facility] propionate 1-09 Puffs ity of (FLOVENT 00:00: every 12 [place] HFA) 110 00 (twelve) Medical mcg/actuati hours. Branch on inhaler Rinse mouth after each use. levalbutero 2020-09 Yes [id number] .63mg Inhale [facility] l 0.63 mg/3 1-09 0.63 mg 3 ity of mL 00:00: (three) [place] nebulizer 00 times Medical solution daily as Branch needed for Wheezing or Shortness of Breath. losartan 50 2020-09 Yes [id number] 50mg Take 1 [facility] mg tablet -09 tablet by ity o f 00:00: mouth 2 [place] 00 (two) Medical times Branch daily. clotrimazol 2020-09 Yes [id number] Apply to [facility] e-betametha 09 area(s) 2 ity of sone cream 00:00: (two) [place] 00 times Medical daily. Branch cyclobenzap 2020-09 Yes [id number] TAKE 1 [facility] rine 5 mg 1-09 TABLET BY ity o f tablet 00:00: MOUTH [place] 00 EVERY 8 Medical HOURS Branch NEEDED econazole 2020-09 Yes [id number] Apply to [facility] nitrate 1 % 09 area(s) 2 ity of cream 00:00: (two) [place] 00 times Medical daily. Branch albuterol 2020-09 Yes [id number] 2{puff} Inhale 2 [facility] (PROAIR 1-09 Puffs ity of HFA) 90 00:00: every 6 [place] mcg/actuati 00 (six) Medical on inhaler hours as Branc h needed for Wheezing or Shortness of Breath. triamcinolo 2020-09 Yes [id number] Apply to [facility] ne 0.025 % 10-04 area(s) 3 ity of ointment 00:00: (three) [place] 00 times Medical daily. For Branch itching diltiazem 2020-09 Yes [id number] 120mg Take 1 [facility] n[facility] (CARTIA XT) 09 capsule by it y of 120 mg 24 00:00: mouth 2 [place] hr capsule 00 (two) Medical times Branch daily. cyanocobala 2020-09 Yes [id number] 1000ug 1 mL by [facility] min 1,000 09 Intramuscu ity of mcg/mL 00:00: lar route [place] injection 00 every 2 Medical (two) Branch weeks. levothyroxi 2020-09 Yes [id number] 50ug Take 1 [facility] ne 50 mcg 10-04 tablet by ity o f tablet 00:00: mouth [place] 00 every Medical morning. Branch fluticasone 2020-09 Yes [id number] 2{puff} Inhale 2 [facility] propionate -09 Puffs ity of (FLOVENT 00:00: every 12 [place] HFA) 110 00 (twelve) Medical mcg/actuati hours. Branch on inhaler Rinse mouth after each use. levalbutero 2020-09 Yes [id number] .63mg Inhale [facility] l 0.63 mg/3 -09 0.63 mg 3 ity of mL 00:00: (three) [place] nebulizer 00 times Medical solution daily as Branch needed for Wheezing or Shortness of Breath. losartan 50 2020-09 Yes [id number] 50mg Take 1 [facility] mg tablet 09 tablet by ity o f 00:00: mouth 2 [place] 00 (two) Medical times Branch daily. clotrimazol 2020-09 Yes [id number] Apply to [facility] e-betametha 09 area(s) 2 ity of sone cream 00:00: (two) [place] 00 times Medical daily. Branch cyclobenzap 2020-09 Yes [id number] TAKE 1 [facility] rine 5 mg -09 TABLET BY ity o f tablet 00:00: MOUTH [place] 00 EVERY 8 Medical HOURS Branch NEEDED econazole 2020-09 Yes [id number] Apply to [facility] nitrate 1 % 10-04 area(s) 2 ity of cream 00:00: (two) [place] 00 times Medical daily. Branch albuterol 2020-09 Yes [id number] 2{puff} Inhale 2 [facility] (PROAIR 1-09 Puffs ity of HFA) 90 00:00: every 6 [place] mcg/actuati 00 (six) Medical on inhaler hours as Branc h needed for Wheezing or Shortness of Breath. triamcinolo 2020-09 Yes [id number] Apply to [facility] ne 0.025 % 1-09 area(s) 3 ity of ointment 00:00: (three) [place] 00 times Medical daily. For Branch itching diltiazem 2020-09 Yes [id number] 120mg Take 1 [facility] n[facility] (CARTIA XT) 1-09 capsule by it y of 120 mg 24 00:00: mouth 2 [place] hr capsule 00 (two) Medical times Branch daily. cyanocobala 2020-09 Yes [id number] 1000ug 1 mL by [facility] min 1,000 1-09 Intramuscu ity of mcg/mL 00:00: lar route [place] injection 00 every 2 Medical (two) Branch weeks. levothyroxi 2020-09 Yes [id number] 50ug Take 1 [facility] ne 50 mcg 1-09 tablet by ity o f tablet 00:00: mouth [place] 00 every Medical morning. Branch fluticasone 2020-09 Yes [id number] 2{puff} Inhale 2 [facility] propionate 1-09 Puffs ity of (FLOVENT 00:00: every 12 [place] HFA) 110 00 (twelve) Medical mcg/actuati hours. Branch on inhaler Rinse mouth after each use. levalbutero 2020-09 Yes [id number] .63mg Inhale [facility] l 0.63 mg/3 1-09 0.63 mg 3 ity of mL 00:00: (three) [place] nebulizer 00 times Medical solution daily as Branch needed for Wheezing or Shortness of Breath. losartan 50 2020-09 Yes [id number] 50mg Take 1 [facility] mg tablet 1-09 tablet by ity o f 00:00: mouth 2 [place] 00 (two) Medical times Branch daily. clotrimazol 2020-09 Yes [id number] Apply to [facility] e-betametha 1-09 area(s) 2 ity of sone cream 00:00: (two) [place] 00 times Medical daily. Branch cyclobenzap 2020-09 Yes [id number] TAKE 1 [facility] rine 5 mg 10-04 TABLET BY ity o f tablet 00:00: MOUTH [place] 00 EVERY 8 Medical HOURS Branch NEEDED econazole 2020-09 Yes [id number] Apply to [facility] nitrate 1 % 10-04 area(s) 2 ity of cream 00:00: (two) [place] 00 times Medical daily. Branch albuterol 2020-09 Yes [id number] 2{puff} Inhale 2 [facility] (PROAIR 10-04 Puffs ity of HFA) 90 00:00: every 6 [place] mcg/actuati 00 (six) Medical on inhaler hours as Branc h needed for Wheezing or Shortness of Breath. triamcinolo 2020-09 Yes [id number] Apply to [facility] ne 0.025 % 10-04 area(s) 3 ity of ointment 00:00: (three) [place] 00 times Medical daily. For Branch itching diltiazem 2020-09 Yes [id number] 120mg Take 1 [facility] n[facility] (CARTIA XT) 10-04 capsule by it y of 120 mg 24 00:00: mouth 2 [place] hr capsule 00 (two) Medical times Branch daily. cyclobenzap 2020-09- No [id number] TAKE 1 [facility] rine 5 mg 10-04 TABLET BY ity of tablet 00:00: 00:00 MOUTH [place] 00 :00 EVERY 8 Medical HOURS Branch NEEDED cyclobenzap 2020-09- No [id number] TAKE 1 [facility] rine 5 mg 10-0424 TABLET BY ity of tablet 00:00: 00:00 MOUTH [place] 00 :00 EVERY 8 Medical HOURS Branch NEEDED cyclobenzap 2020-09- No [id number] TAKE 1 [facility] rine 5 mg 10-0424 TABLET BY ity of tablet 00:00: 00:00 MOUTH [place] 00 :00 EVERY 8 Medical HOURS Branch NEEDED cyclobenzap 2020-09- No [id number] TAKE 1 [facility] rine 5 mg 10-0424 TABLET BY ity of tablet 00:00: 00:00 MOUTH [place] 00 :00 EVERY 8 Medical HOURS Branch NEEDED cyclobenzap 2020-09- No [id number] TAKE 1 [facility] rine 5 mg 1-09 01-24 TABLET BY ity of tablet 00:00: 00:00 MOUTH [place] 00 :00 EVERY 8 Medical HOURS Branch NEEDED cyanocobala 2020-09- No [id number] 1000ug 1 mL by [facility] min 1,000 10-04 Intramuscu ity of mcg/mL 00:00: 00:00 lar route [place] injection 00 :00 every 2 Medical (two) Branch weeks. fluticasone 2020-09- No [id number] 2{puff} Inhale 2 [facility] propionate 10-04 Puffs ity of (FLOVENT 00:00: 00:00 every 12 [place] HFA[place] 110 00 :00 (twelve) Medical mcg/actuati hours. Branch on inhaler Rinse mouth after each use. clotrimazol 2020-09- No [id number] Apply to [facility] e-betametha 10-04 area(s) 2 it y of sone cream 00:00: 00:00 (two) [place] 00 :00 times Medical daily. Branch econazole 2020-09- No [id number] [facility] to [facility] [facility] nitrate 1 % 10-04 area(s) 2 it y of cream 00:00: 00:00 (two) [place] 00 :00 times Medical daily. Branch triamcinolo 2020-09- No [id number] Apply to [facility] ne 0.025 % 10-04 area(s) 3 ity of ointment 00:00: 00:00 (three) [place] 00 :00 times Medical daily. For Branch itching fluticasone 2020-09- No [id number] 2{puff} Inhale 2 [facility] propionate 10-04 Puffs ity of (FLOVENT 00:00: 00:00 [place] 12 [place] HFA[place] 110 00 :00 (twelve) Medical mcg/actuati hours. Branch on inhaler Rinse mouth after each use. clotrimazol 2020-09- No [id number] Apply to [facility] e-betametha 10-04 area(s) 2 it y of sone cream 00:00: 00:00 (two) [place] 00 :00 times Medical daily. Branch econazole 2020-09- No [id number] Apply to [facility] nitrate 1 % 10-04 area(s) 2 it y of cream 00:00: 00:00 (two) [place] 00 :00 times Medical daily. Branch triamcinolo 2020-09- No [id number] Apply to [facility] ne 0.025 % 10-04 area(s) 3 ity of ointment 00:00: 00:00 (three) [place] 00 :00 times Medical daily. For Branch itching levothyroxi 2020-09- No [id number] 50ug Take 1 [facility] ne 50 mcg 10-04 tablet by ity of tablet 00:00: 00:00 mouth [place] 00 :00 every Medical morning. Branch losartan 50 2020-09- No [id number] 50mg Take 1 [facility] mg tablet 10-04 tablet by ity of 00:00: 00:00 mouth 2 [place] 00 :00 (two) Medical times Branch daily. diltiazem 2020-09- No [id number] 120mg Take 1 [facility] (CARTIA XT) 10-04 capsule by i ty of 120 mg 24 00:00: 00:00 mouth 2 [place] hr capsule 00 :00 (two) Medical times Branch daily. rosuvastati 2020-09- No [id number] 10mg Take 1 [facility] n 10 mg 10-04 tablet by ity of tablet 00:00: 00:00 mouth at [place] 00 :00 bedtime. Medical Branch rosuvastati 2020-09- No [id number] 10mg Take 1 [facility] n 10 mg 10-04 tablet by ity of tablet 00:00: 00:00 mouth at [place] 00 :00 bedtime. Medical Branch proMETHazin 2019-09 [...] Ginkgo 2019-0 2023- No [facility] [place] 120 -16 -24 ity of mg Tab 00:00: 00:00 [place] 00 :00 Medical Branch Ginkgo 2019-0 2023- No [facility] [place] 120 1-16 -24 ity of mg Tab 00:00: 00:00 [place] 00 :00 Medical Branch FERROUS 2018-0 Yes [id number] TAKE ONE Uni vers SULFATE 325 8-13 TABLET BY ity of mg (65 mg 00:00: MOUTH [place] iron) 00 THREE Medical tablet TIMES Branch DAILY WITH MEALS FERROUS Yes [id number] TAKE ONE [facility] vers SULFATE 325 8-13 TABLET BY ity of mg (65 mg 00:00: MOUTH [place] iron) 00 THREE Medical tablet TIMES Branch DAILY WITH MEALS FERROUS Yes [id number] TAKE ONE [facility] vers SULFATE 325 8-13 TABLET BY ity of mg (65 mg 00:00: MOUTH [place] iron) 00 THREE Medical tablet TIMES Branch DAILY WITH MEALS FERROUS Yes [id number] TAKE ONE [facility] vers SULFATE 325 8-13 TABLET BY ity of mg (65 mg 00:00: MOUTH [place] iron) 00 THREE Medical tablet TIMES Branch DAILY WITH MEALS FERROUS Yes [id number] TAKE ONE [facility] vers SULFATE 325 8-13 TABLET BY ity of mg (65 mg 00:00: MOUTH [place] iron) 00 THREE Medical tablet TIMES Branch DAILY WITH MEALS FERROUS Yes [id number] TAKE ONE [facility] vers SULFATE 325 8-13 TABLET BY ity of mg (65 mg 00:00: MOUTH [place] iron) 00 THREE Medical tablet TIMES Branch DAILY WITH MEALS FERROUS Yes [id number] TAKE ONE [facility] vers SULFATE 325 8-13 TABLET BY ity of mg (65 mg 00:00: MOUTH [place] iron) 00 THREE Medical tablet TIMES Branch DAILY WITH MEALS FERROUS Yes [id number] TAKE ONE [facility] vers SULFATE 325 8-13 TABLET BY ity of mg (65 mg 00:00: MOUTH [place] iron) 00 THREE Medical tablet TIMES Branch DAILY WITH MEALS FERROUS Yes [id number] TAKE ONE [facility] vers SULFATE 325 8-13 TABLET BY ity of mg (65 mg 00:00: MOUTH [place] iron) 00 THREE Medical tablet TIMES Branch DAILY WITH MEALS FERROUS Yes [id number] TAKE ONE [facility] vers SULFATE 325 8-13 TABLET BY ity of mg (65 mg 00:00: MOUTH [place] iron) 00 THREE Medical tablet TIMES Branch DAILY WITH MEALS FERROUS Yes [id number] TAKE ONE [facility] vers SULFATE 325 8-13 TABLET BY ity of mg (65 mg 00:00: MOUTH [place] iron) 00 THREE Medical tablet TIMES Branch DAILY WITH MEALS FERROUS Yes [id number] TAKE ONE [facility] vers SULFATE 325 8-13 TABLET BY ity of mg (65 mg 00:00: MOUTH [place] iron) 00 THREE Medical tablet TIMES Branch DAILY WITH MEALS FERROUS Yes [id number] TAKE ONE [facility] vers SULFATE 325 8-13 TABLET BY ity of mg (65 mg 00:00: MOUTH [place] iron) 00 THREE Medical tablet TIMES Branch DAILY WITH MEALS FERROUS Yes [id number] TAKE ONE [facility] vers SULFATE 325 8-13 TABLET BY ity of mg (65 mg 00:00: MOUTH [place] iron) 00 THREE Medical tablet TIMES Branch DAILY WITH MEALS FERROUS Yes [id number] TAKE ONE [facility] vers SULFATE 325 8-13 TABLET BY ity of mg (65 mg 00:00: MOUTH [place] iron) 00 THREE Medical tablet TIMES Branch DAILY WITH MEALS FERROUS Yes [id number] TAKE ONE [facility] vers SULFATE 325 8-13 TABLET BY ity of mg (65 mg 00:00: MOUTH [place] iron) 00 THREE Medical tablet TIMES Branch DAILY WITH MEALS FERROUS Yes [id number] TAKE ONE [facility] vers SULFATE 325 8-13 TABLET BY ity of mg (65 mg 00:00: MOUTH [place] iron) 00 THREE Medical tablet TIMES Branch DAILY WITH MEALS FERROUS Yes [id number] TAKE ONE [facility] vers SULFATE 325 8-13 TABLET BY ity of mg (65 mg 00:00: MOUTH [place] iron) 00 THREE Medical tablet TIMES Branch DAILY WITH MEALS FERROUS Yes [id number] TAKE ONE [facility] vers SULFATE 325 8-13 TABLET BY ity of mg (65 mg 00:00: MOUTH [place] iron) 00 THREE Medical tablet TIMES Branch DAILY WITH MEALS FERROUS Yes [id number] TAKE ONE [facility] vers SULFATE 325 8-13 TABLET BY ity of mg (65 mg 00:00: MOUTH [place] iron) 00 THREE Medical tablet TIMES Branch DAILY WITH MEALS FERROUS Yes [id number] TAKE ONE [facility] vers SULFATE 325 8-13 TABLET BY ity of mg (65 mg 00:00: MOUTH [place] iron) 00 THREE Medical tablet TIMES Branch DAILY WITH MEALS FERROUS Yes [id number] TAKE ONE [facility] vers SULFATE 325 8-13 TABLET BY ity of mg (65 mg 00:00: MOUTH [place] iron) 00 THREE Medical tablet TIMES Branch DAILY WITH MEALS FERROUS Yes [id number] TAKE ONE [facility] vers SULFATE 325 8-13 TABLET BY ity of mg (65 mg 00:00: MOUTH [place] iron) 00 THREE Medical tablet TIMES Branch DAILY WITH MEALS FERROUS Yes [id number] TAKE ONE [facility] vers SULFATE 325 8-13 TABLET BY ity of mg (65 mg 00:00: MOUTH [place] iron) 00 THREE Medical tablet TIMES Branch DAILY WITH MEALS FERROUS Yes [id number] TAKE ONE [facility] vers SULFATE 325 8-13 TABLET BY ity of mg (65 mg 00:00: MOUTH [place] iron) 00 THREE Medical tablet TIMES Branch DAILY WITH MEALS FERROUS Yes [id number] TAKE ONE [facility] vers SULFATE 325 8-13 TABLET BY ity of mg (65 mg 00:00: MOUTH [place] iron) 00 THREE Medical tablet TIMES Branch DAILY WITH MEALS FERROUS Yes [id number] TAKE ONE [facility] vers SULFATE 325 8-13 TABLET BY ity of mg (65 mg 00:00: MOUTH [place] iron) 00 THREE Medical tablet TIMES Branch DAILY WITH MEALS FERROUS Yes [id number] TAKE ONE [facility] vers SULFATE 325 8-13 TABLET BY ity of mg (65 mg 00:00: MOUTH [place] iron) 00 THREE Medical tablet TIMES Branch DAILY WITH MEALS FERROUS Yes [id number] TAKE ONE [facility] vers SULFATE 325 8-13 TABLET BY ity of mg (65 mg 00:00: MOUTH [place] iron) 00 THREE Medical tablet TIMES Branch DAILY WITH MEALS FERROUS Yes [id number] TAKE ONE [facility] vers SULFATE 325 8-13 TABLET BY ity of mg (65 mg 00:00: MOUTH [place] iron) 00 THREE Medical tablet TIMES Branch DAILY WITH MEALS FERROUS Yes [id number] TAKE ONE Uni vers SULFATE 325 8-13 TABLET BY ity of mg (65 mg 00:00: MOUTH [place] iron) 00 THREE Medical tablet TIMES Branch DAILY WITH MEALS FERROUS Yes [id number] TAKE ONE [facility] vers SULFATE 325 8-13 TABLET BY ity of mg (65 mg 00:00: MOUTH [place] iron) 00 THREE Medical tablet TIMES Branch DAILY WITH MEALS FERROUS Yes [id number] TAKE ONE Uni vers SULFATE 325 8-13 TABLET BY ity of mg (65 mg 00:00: MOUTH [place] iron) 00 THREE Medical tablet TIMES Branch DAILY WITH MEALS FERROUS Yes [id number] TAKE ONE Uni vers SULFATE 325 8-13 TABLET BY ity of mg (65 mg 00:00: MOUTH [place] iron) 00 THREE Medical tablet TIMES Branch DAILY WITH MEALS FERROUS Yes [id number] TAKE ONE [facility] vers SULFATE 325 8-13 TABLET BY ity of mg (65 mg 00:00: MOUTH [place] iron) 00 THREE Medical tablet TIMES Branch DAILY WITH MEALS FERROUS Yes [id number] TAKE ONE [facility] vers SULFATE 325 8-13 TABLET BY ity of mg (65 mg 00:00: MOUTH [place] iron) 00 THREE Medical tablet TIMES Branch DAILY WITH MEALS FERROUS Yes [id number] TAKE ONE Uni vers SULFATE 325 8-13 TABLET BY ity of mg (65 mg 00:00: MOUTH [place] iron) 00 THREE Medical tablet TIMES Branch DAILY WITH MEALS FERROUS Yes [id number] TAKE ONE Uni vers SULFATE 325 8-13 TABLET BY ity of mg (65 mg 00:00: MOUTH [place] iron) 00 THREE Medical tablet TIMES Branch DAILY WITH MEALS FERROUS Yes [id number] TAKE ONE [facility] vers SULFATE 325 8-13 TABLET BY ity of mg (65 mg 00:00: MOUTH [place] iron) 00 THREE Medical tablet TIMES Branch DAILY WITH MEALS FERROUS Yes [id number] TAKE ONE [facility] vers SULFATE 325 8-13 TABLET BY ity of mg (65 mg 00:00: MOUTH [place] iron) 00 THREE Medical tablet TIMES Branch DAILY WITH MEALS FERROUS Yes [id number] TAKE ONE [facility] vers SULFATE 325 8-13 TABLET BY ity of mg (65 mg 00:00: MOUTH [place] iron) 00 THREE Medical tablet TIMES Branch DAILY WITH MEALS FERROUS Yes [id number] TAKE ONE [facility] vers SULFATE 325 8-13 TABLET BY ity of mg (65 mg 00:00: MOUTH [place] iron) 00 THREE Medical tablet TIMES Branch DAILY WITH MEALS FERROUS Yes [id number] TAKE ONE [facility] vers SULFATE 325 8-13 TABLET BY ity of mg (65 mg 00:00: MOUTH [place] iron) 00 THREE Medical tablet TIMES Branch DAILY WITH MEALS FERROUS Yes [id number] TAKE ONE Uni vers SULFATE 325 8-13 TABLET BY ity of mg (65 mg 00:00: MOUTH [place] iron) 00 THREE Medical tablet TIMES Branch DAILY WITH MEALS FERROUS Yes [id number] TAKE ONE Uni vers SULFATE 325 8-13 TABLET BY ity of mg (65 mg 00:00: MOUTH [place] iron) 00 THREE Medical tablet TIMES Branch DAILY WITH MEALS FERROUS Yes [id number] TAKE ONE [facility] vers SULFATE 325 8-13 TABLET BY ity of mg (65 mg 00:00: MOUTH [place] iron) 00 THREE Medical tablet TIMES Branch DAILY WITH MEALS FERROUS Yes [id number] TAKE ONE Uni vers SULFATE 325 8-13 TABLET BY ity of mg (65 mg 00:00: MOUTH [place] iron) 00 THREE Medical tablet TIMES Branch DAILY WITH MEALS FERROUS 2018-0 Yes [id number] TAKE ONE Uni vers SULFATE 325 8-13 TABLET BY ity of mg (65 mg 00:00: MOUTH [place] iron) 00 THREE Medical tablet TIMES Branch DAILY WITH MEALS FERROUS 0 Yes [id number] TAKE ONE [facility] vers SULFATE 325 8-13 TABLET BY ity of mg (65 mg 00:00: MOUTH [place] iron) 00 THREE Medical tablet TIMES Branch DAILY WITH MEALS FERROUS Yes [id number] TAKE ONE [facility] vers SULFATE 325 8-13 TABLET BY ity of mg (65 mg 00:00: MOUTH [place] iron) 00 THREE Medical tablet TIMES Branch DAILY WITH MEALS FERROUS Yes [id number] TAKE ONE [facility] vers SULFATE 325 8-13 TABLET BY ity of mg (65 mg 00:00: MOUTH [place] iron) 00 THREE Medical tablet TIMES Branch DAILY WITH MEALS FERROUS Yes [id number] TAKE ONE Uni vers SULFATE 325 8-13 TABLET BY ity of mg (65 mg 00:00: MOUTH [place] iron) 00 THREE Medical tablet TIMES Branch DAILY WITH MEALS FERROUS Yes [id number] TAKE ONE Uni vers SULFATE 325 8-13 TABLET BY ity of mg (65 mg 00:00: MOUTH [place] iron) 00 THREE Medical tablet TIMES Branch DAILY WITH MEALS FERROUS Yes [id number] TAKE ONE Uni vers SULFATE 325 8-13 TABLET BY ity of mg (65 mg 00:00: MOUTH [place] iron) 00 THREE Medical tablet TIMES Branch DAILY WITH MEALS FERROUS Yes [id number] TAKE ONE Uni vers SULFATE 325 8-13 TABLET BY ity of mg (65 mg 00:00: MOUTH [place] iron) 00 THREE Medical tablet TIMES Branch DAILY WITH MEALS FERROUS Yes [id number] TAKE ONE Uni vers SULFATE 325 8-13 TABLET BY ity of mg (65 mg 00:00: MOUTH [place] iron) 00 THREE Medical tablet TIMES Branch DAILY WITH MEALS FERROUS Yes [id number] TAKE ONE Uni vers SULFATE 325 8-13 TABLET BY ity of mg (65 mg 00:00: MOUTH [place] iron) 00 THREE Medical tablet TIMES Branch DAILY WITH MEALS FERROUS Yes [id number] TAKE ONE Uni vers SULFATE 325 8-13 TABLET BY ity of mg (65 mg 00:00: MOUTH [place] iron) 00 THREE Medical tablet TIMES Branch DAILY WITH MEALS FERROUS Yes [id number] TAKE ONE Uni vers SULFATE 325 8-13 TABLET BY ity of mg (65 mg 00:00: MOUTH [place] iron) 00 THREE Medical tablet TIMES Branch DAILY WITH MEALS FERROUS Yes [id number] TAKE ONE [facility] vers SULFATE 325 8-13 TABLET BY ity of mg (65 mg 00:00: MOUTH [place] iron) 00 THREE Medical tablet TIMES Branch DAILY WITH MEALS FERROUS Yes [id number] TAKE ONE Uni vers SULFATE 325 8-13 TABLET BY ity of mg (65 mg 00:00: MOUTH [place] iron) 00 THREE Medical tablet TIMES Branch DAILY WITH MEALS FERROUS Yes [id number] TAKE ONE Uni vers SULFATE 325 8-13 TABLET BY ity of mg (65 mg 00:00: MOUTH [place] iron) 00 THREE Medical tablet TIMES Branch DAILY WITH MEALS FERROUS Yes [id number] TAKE ONE [facility] vers SULFATE 325 8-13 TABLET BY ity of mg (65 mg 00:00: MOUTH [place] iron) 00 THREE Medical tablet TIMES Branch DAILY WITH MEALS FERROUS Yes [id number] TAKE ONE [facility] vers SULFATE 325 8-13 TABLET BY ity of mg (65 mg 00:00: MOUTH [place] iron) 00 THREE Medical tablet TIMES Branch DAILY WITH MEALS FERROUS Yes [id number] TAKE ONE Uni vers SULFATE 325 8-13 TABLET BY ity of mg (65 mg 00:00: MOUTH [place] iron) 00 THREE Medical tablet TIMES Branch DAILY WITH MEALS FERROUS Yes [id number] TAKE ONE Uni vers SULFATE 325 8-13 TABLET BY ity of mg (65 mg 00:00: MOUTH [place] iron) 00 THREE Medical tablet TIMES Branch DAILY WITH MEALS FERROUS Yes [id number] TAKE ONE Uni vers SULFATE 325 8-13 TABLET BY ity of mg (65 mg 00:00: MOUTH [place] iron) 00 THREE Medical tablet TIMES Branch DAILY WITH MEALS FERROUS Yes [id number] TAKE ONE Uni vers SULFATE 325 8-13 TABLET BY ity of mg (65 mg 00:00: MOUTH [place] iron) 00 THREE Medical tablet TIMES Branch DAILY WITH MEALS FERROUS Yes [id number] TAKE ONE Uni vers SULFATE 325 8-13 TABLET BY ity of mg (65 mg 00:00: MOUTH [place] iron) 00 THREE Medical tablet TIMES Branch DAILY WITH MEALS FERROUS Yes [id number] TAKE ONE [facility] vers SULFATE 325 8-13 TABLET BY ity of mg (65 mg 00:00: MOUTH [place] iron) 00 THREE Medical tablet TIMES Branch DAILY WITH MEALS FERROUS Yes [id number] TAKE ONE Uni vers SULFATE 325 8-13 TABLET BY ity of mg (65 mg 00:00: MOUTH [place] iron) 00 THREE Medical tablet TIMES Branch DAILY WITH MEALS FERROUS Yes [id number] TAKE ONE Uni vers SULFATE 325 8-13 TABLET BY ity of mg (65 mg 00:00: MOUTH [place] iron) 00 THREE Medical tablet TIMES Branch DAILY WITH MEALS FERROUS Yes [id number] TAKE ONE [facility] vers SULFATE 325 8-13 TABLET BY ity of mg (65 mg 00:00: MOUTH [place] iron) 00 THREE Medical tablet TIMES Branch DAILY WITH MEALS FERROUS Yes [id number] TAKE ONE [facility] vers SULFATE 325 8-13 TABLET BY ity of mg (65 mg 00:00: MOUTH [place] iron) 00 THREE Medical tablet TIMES Branch DAILY WITH MEALS FERROUS Yes [id number] TAKE ONE [facility] vers SULFATE 325 8-13 TABLET BY ity of mg (65 mg 00:00: MOUTH [place] iron) 00 THREE Medical tablet TIMES Branch DAILY WITH MEALS FERROUS Yes [id number] TAKE ONE [facility] vers SULFATE 325 8-13 TABLET BY ity of mg (65 mg 00:00: MOUTH [place] iron) 00 THREE Medical tablet TIMES Branch DAILY WITH MEALS FERROUS Yes [id number] TAKE ONE [facility] vers SULFATE 325 8-13 TABLET BY ity of mg (65 mg 00:00: MOUTH [place] iron) 00 THREE Medical tablet TIMES Branch DAILY WITH MEALS FERROUS 2022- No [id number] TAKE ONE [facility] [place] SULFATE 325 8-13 01-24 TABLET BY it y of mg (65 mg 00:00: 00:00 MOUTH [place] iron) 00 :00 THREE Medical tablet TIMES Branch DAILY WITH MEALS FERROUS 2022- No [id number] TAKE ONE [facility] [place] SULFATE 325 8-13 01-24 TABLET BY it y of mg (65 mg 00:00: 00:00 MOUTH [place] iron) 00 :00 THREE Medical tablet TIMES Branch DAILY WITH MEALS FERROUS 2022- No [id number] TAKE ONE [facility] [place] SULFATE 325 8-13 01-24 TABLET BY it y of mg (65 mg 00:00: 00:00 MOUTH [place] iron) 00 :00 THREE Medical tablet TIMES Branch DAILY WITH MEALS FERROUS 2022- No [id number] TAKE ONE [facility] [place] SULFATE 325 8-13 01-24 TABLET BY it y of mg (65 mg 00:00: 00:00 MOUTH [place] iron) 00 :00 THREE Medical tablet TIMES Branch DAILY WITH MEALS FERROUS 3- No [id number] TAKE ONE [facility] [place] SULFATE 325 8-13 -24 TABLET BY it y of mg (65 mg 00:00: 00:00 MOUTH [place] iron) 00 :00 THREE Medical tablet TIMES [place] DAILY WITH MEALS coQ10, Yes [id number] 1{capsu Take 1 U nivers ubiquinol, 1-16 le} capsule by ity of 100 mg Cap 00:00: mouth [place] 00 daily. Medical Branch coQ10, Yes [id number] 1{capsu Take 1 U nivers ubiquinol, 1-16 le} capsule by ity of 100 mg Cap 00:00: mouth [place] 00 daily. [facility] Branch coQ10, Yes [id number] 1{capsu Take 1 U nivers ubiquinol, 1-16 le} capsule by ity of 100 mg Cap 00:00: mouth [place] 00 daily. [facility] Branch coQ10, Yes [id number] 1{capsu Take 1 U nivers ubiquinol, 1-16 le} capsule by ity of 100 mg Cap 00:00: mouth [place] 00 daily. [facility] Branch coQ10, Yes [id number] 1{capsu Take 1 U nivers ubiquinol, 1-16 le} capsule by ity of 100 mg Cap 00:00: mouth [place] 00 daily. [facility] coQ10, Yes [id number] 1{capsu Take 1 U nivers ubiquinol, 1-16 le} capsule by ity of 100 mg Cap 00:00: mouth [place] 00 daily. [facility] Branch coQ10, Yes [id number] 1{capsu Take 1 U nivers ubiquinol, 1-16 le} capsule by ity of 100 mg Cap 00:00: mouth [place] 00 daily. [facility] Branch coQ10, Yes [id number] 1{capsu Take 1 U nivers ubiquinol, 1-16 le} capsule by ity of 100 mg Cap 00:00: mouth [place] 00 daily. [facility] Branch coQ10, Yes [id number] 1{capsu Take 1 U nivers ubiquinol, 1-16 le} capsule by ity of 100 mg Cap 00:00: mouth [place] 00 daily. [facility] Branch coQ10, Yes [id number] 1{capsu Take 1 U nivers ubiquinol, 1-16 le} capsule by ity of 100 mg Cap 00:00: mouth [place] 00 daily. Medical Branch coQ10, Yes [id number] 1{capsu Take 1 U nivers ubiquinol, 1-16 le} capsule by ity of 100 mg Cap 00:00: mouth [place] 00 daily. Medical Branch coQ10, Yes [id number] 1{capsu Take 1 U nivers ubiquinol, 1-16 le} capsule by ity of 100 mg Cap 00:00: mouth [place] 00 daily. Medical Branch coQ10, Yes [id number] 1{capsu Take 1 U nivers ubiquinol, 1-16 le} capsule by ity of 100 mg Cap 00:00: mouth [place] 00 daily. Medical Branch coQ10, Yes [id number] 1{capsu Take 1 U nivers ubiquinol, 1-16 le} capsule by ity of 100 mg Cap 00:00: mouth [place] 00 daily. Medical Branch coQ10, Yes [id number] 1{capsu Take 1 U nivers ubiquinol, 1-16 le} capsule by ity of 100 mg Cap 00:00: mouth [place] 00 daily. Medical Branch coQ10, Yes [id number] 1{capsu Take 1 U nivers ubiquinol, 1-16 le} capsule by ity of 100 mg Cap 00:00: mouth [place] 00 daily. Medical Branch coQ10, Yes [id number] 1{capsu Take 1 U nivers ubiquinol, 1-16 le} capsule by ity of 100 mg Cap 00:00: mouth [place] 00 daily. Medical Branch coQ10, Yes [id number] 1{capsu Take 1 U nivers ubiquinol, 1-16 le} capsule by ity of 100 mg Cap 00:00: mouth [place] 00 daily. Medical Branch coQ10, Yes [id number] 1{capsu Take 1 U nivers ubiquinol, 1-16 le} capsule by ity of 100 mg Cap 00:00: mouth [place] 00 daily. Medical Branch coQ10, Yes [id number] 1{capsu Take 1 U nivers ubiquinol, 1-16 le} capsule by ity of 100 mg Cap 00:00: mouth [place] 00 daily. Medical Branch coQ10, Yes [id number] 1{capsu Take 1 U nivers ubiquinol, 1-16 le} capsule by ity of 100 mg Cap 00:00: mouth [place] 00 daily. Medical Branch coQ10, Yes [id number] 1{capsu Take 1 U nivers ubiquinol, 1-16 le} capsule by ity of 100 mg Cap 00:00: mouth [place] 00 daily. Medical Branch coQ10, Yes [id number] 1{capsu Take 1 U nivers ubiquinol, 1-16 le} capsule by ity of 100 mg Cap 00:00: mouth [place] 00 daily. [facility] Branch coQ10, Yes [id number] 1{capsu Take 1 U nivers ubiquinol, 1-16 le} capsule by ity of 100 mg Cap 00:00: mouth [place] 00 daily. [facility] Branch coQ10, Yes [id number] 1{capsu Take 1 U nivers ubiquinol, 1-16 le} capsule by ity of 100 mg Cap 00:00: mouth [place] 00 daily. [facility] Branch coQ10, Yes [id number] 1{capsu Take 1 U nivers ubiquinol, 1-16 le} capsule by ity of 100 mg Cap 00:00: mouth [place] 00 daily. Medical Branch coQ10, Yes [id number] 1{capsu Take 1 U nivers ubiquinol, 1-16 le} capsule by ity of 100 mg Cap 00:00: mouth [place] 00 daily. [facility] Branch coQ10, Yes [id number] 1{capsu Take 1 U nivers ubiquinol, 1-16 le} capsule by ity of 100 mg Cap 00:00: mouth [place] 00 daily. Medical Branch coQ10, Yes [id number] 1{capsu Take 1 U nivers ubiquinol, 1-16 le} capsule by ity of 100 mg Cap 00:00: mouth [place] 00 daily. Medical Branch coQ10, Yes [id number] 1{capsu Take 1 U nivers ubiquinol, 1-16 le} capsule by ity of 100 mg Cap 00:00: mouth [place] 00 daily. [facility] Branch coQ10, Yes [id number] 1{capsu Take 1 U nivers ubiquinol, 1-16 le} capsule by ity of 100 mg Cap 00:00: mouth [place] 00 daily. [facility] Branch coQ10, Yes [id number] 1{capsu Take 1 U nivers ubiquinol, 1-16 le} capsule by ity of 100 mg Cap 00:00: mouth [place] 00 daily. Medical Branch coQ10, Yes [id number] 1{capsu Take 1 U nivers ubiquinol, 1-16 le} capsule by ity of 100 mg Cap 00:00: mouth [place] 00 daily. Medical Branch coQ10, Yes [id number] 1{capsu Take 1 U nivers ubiquinol, 1-16 le} capsule by ity of 100 mg Cap 00:00: mouth [place] 00 daily. Medical Branch coQ10, Yes [id number] 1{capsu Take 1 U nivers ubiquinol, 1-16 le} capsule by ity of 100 mg Cap 00:00: mouth [place] 00 daily. Medical Branch coQ10, Yes [id number] 1{capsu Take 1 U nivers ubiquinol, 1-16 le} capsule by ity of 100 mg Cap 00:00: mouth [place] 00 daily. Medical Branch coQ10, Yes [id number] 1{capsu Take 1 U nivers ubiquinol, 1-16 le} capsule by ity of 100 mg Cap 00:00: mouth [place] 00 daily. Medical Branch coQ10, Yes [id number] 1{capsu Take 1 U nivers ubiquinol, 1-16 le} capsule by ity of 100 mg Cap 00:00: mouth [place] 00 daily. Medical Branch coQ10, Yes [id number] 1{capsu Take 1 U nivers ubiquinol, 1-16 le} capsule by ity of 100 mg Cap 00:00: mouth [place] 00 daily. Medical Branch coQ10, Yes [id number] 1{capsu Take 1 U nivers ubiquinol, 1-16 le} capsule by ity of 100 mg Cap 00:00: mouth [place] 00 daily. Medical Branch coQ10, Yes [id number] 1{capsu Take 1 U nivers ubiquinol, 1-16 le} capsule by ity of 100 mg Cap 00:00: mouth [place] 00 daily. Medical Branch coQ10, Yes [id number] 1{capsu Take 1 U nivers ubiquinol, 1-16 le} capsule by ity of 100 mg Cap 00:00: mouth [place] 00 daily. Medical Branch coQ10, Yes [id number] 1{capsu Take 1 U nivers ubiquinol, 1-16 le} capsule by ity of 100 mg Cap 00:00: mouth [place] 00 daily. Medical Branch coQ10, Yes [id number] 1{capsu Take 1 U nivers ubiquinol, 1-16 le} capsule by ity of 100 mg Cap 00:00: mouth [place] 00 daily. Medical Branch coQ10, Yes [id number] 1{capsu Take 1 U nivers ubiquinol, 1-16 le} capsule by ity of 100 mg Cap 00:00: mouth [place] 00 daily. Medical Branch coQ10, Yes [id number] 1{capsu Take 1 U nivers ubiquinol, 1-16 le} capsule by ity of 100 mg Cap 00:00: mouth [place] 00 daily. Medical Branch coQ10, Yes [id number] 1{capsu Take 1 U nivers ubiquinol, 1-16 le} capsule by ity of 100 mg Cap 00:00: mouth [place] 00 daily. Medical Branch coQ10, Yes [id number] 1{capsu Take 1 U nivers ubiquinol, 1-16 le} capsule by ity of 100 mg Cap 00:00: mouth [place] 00 daily. Medical Branch coQ10, Yes [id number] 1{capsu Take 1 U nivers ubiquinol, 1-16 le} capsule by ity of 100 mg Cap 00:00: mouth [place] 00 daily. Medical Branch coQ10, Yes [id number] 1{capsu Take 1 U nivers ubiquinol, 1-16 le} capsule by ity of 100 mg Cap 00:00: mouth [place] 00 daily. Medical Branch coQ10, Yes [id number] 1{capsu Take 1 U nivers ubiquinol, 1-16 le} capsule by ity of 100 mg Cap 00:00: mouth [place] 00 daily. Medical Branch coQ10, Yes [id number] 1{capsu Take 1 U nivers ubiquinol, 1-16 le} capsule by ity of 100 mg Cap 00:00: mouth [place] 00 daily. Medical Branch coQ10, Yes [id number] 1{capsu Take 1 U nivers ubiquinol, 1-16 le} capsule by ity of 100 mg Cap 00:00: mouth [place] 00 daily. Medical Branch coQ10, Yes [id number] 1{capsu Take 1 U nivers ubiquinol, 1-16 le} capsule by ity of 100 mg Cap 00:00: mouth [place] 00 daily. Medical Branch coQ10, Yes [id number] 1{capsu Take 1 U nivers ubiquinol, 1-16 le} capsule by ity of 100 mg Cap 00:00: mouth [place] 00 daily. Medical Branch coQ10, Yes [id number] 1{capsu Take 1 U nivers ubiquinol, 1-16 le} capsule by ity of 100 mg Cap 00:00: mouth [place] 00 daily. Medical Branch coQ10, Yes [id number] 1{capsu Take 1 U nivers ubiquinol, 1-16 le} capsule by ity of 100 mg Cap 00:00: mouth [place] 00 daily. Medical Branch coQ10, Yes [id number] 1{capsu Take 1 U nivers ubiquinol, 1-16 le} capsule by ity of 100 mg Cap 00:00: mouth [place] 00 daily. [facility] coQ10, Yes [id number] 1{capsu Take 1 U nivers ubiquinol, 1-16 le} capsule by ity of 100 mg Cap 00:00: mouth [place] 00 daily. [facility] coQ10, Yes [id number] 1{capsu Take 1 U nivers ubiquinol, 1-16 le} capsule by ity of 100 mg Cap 00:00: mouth [place] 00 daily. [facility] coQ10, Yes [id number] 1{capsu Take 1 U nivers ubiquinol, 1-16 le} capsule by ity of 100 mg Cap 00:00: mouth [place] 00 daily. [facility] coQ10, Yes [id number] 1{capsu Take 1 U nivers ubiquinol, 1-16 le} capsule by ity of 100 mg Cap 00:00: mouth [place] 00 daily. [facility] coQ10, Yes [id number] 1{capsu Take 1 U nivers ubiquinol, 1-16 le} capsule by ity of 100 mg Cap 00:00: mouth [place] 00 daily. [facility] coQ10, Yes [id number] 1{capsu Take 1 U nivers ubiquinol, 1-16 le} capsule by ity of 100 mg Cap 00:00: mouth [place] 00 daily. [facility] coQ10, Yes [id number] 1{capsu Take 1 U nivers ubiquinol, 1-16 le} capsule by ity of 100 mg Cap 00:00: mouth [place] 00 daily. [facility] coQ10, Yes [id number] 1{capsu Take 1 U nivers ubiquinol, 1-16 le} capsule by ity of 100 mg Cap 00:00: mouth [place] 00 daily. [facility] coQ10, Yes [id number] 1{capsu Take 1 U nivers ubiquinol, 1-16 le} capsule by ity of 100 mg Cap 00:00: mouth [place] 00 daily. [facility] coQ10, Yes [id number] 1{capsu Take 1 U nivers ubiquinol, 1-16 le} capsule by ity of 100 mg Cap 00:00: mouth [place] 00 daily. [facility] coQ10, Yes [id number] 1{capsu Take 1 U nivers ubiquinol, 1-16 le} capsule by ity of 100 mg Cap 00:00: mouth [place] 00 daily. [facility] coQ10, Yes [id number] 1{capsu Take 1 U nivers ubiquinol, 1-16 le} capsule by ity of 100 mg Cap 00:00: mouth [place] 00 daily. [facility] coQ10, Yes [id number] 1{capsu Take 1 U nivers ubiquinol, 1-16 le} capsule by ity of 100 mg Cap 00:00: mouth [place] 00 daily. [facility] coQ10, Yes [id number] 1{capsu Take 1 U nivers ubiquinol, 1-16 le} capsule by ity of 100 mg Cap 00:00: mouth [place] 00 daily. [facility] coQ10, Yes [id number] 1{capsu Take 1 U nivers ubiquinol, 1-16 le} capsule by ity of 100 mg Cap 00:00: mouth [place] 00 daily. [facility] coQ10, Yes [id number] 1{capsu Take 1 U nivers ubiquinol, 1-16 le} capsule by ity of 100 mg Cap 00:00: mouth [place] 00 daily. [facility] coQ10, Yes [id number] 1{capsu Take 1 U nivers ubiquinol, 1-16 le} capsule by ity of 100 mg Cap 00:00: mouth [place] 00 daily. [facility] coQ10, Yes [id number] 1{capsu Take 1 U nivers ubiquinol, 1-16 le} capsule by ity of 100 mg Cap 00:00: mouth [place] 00 daily. [facility] coQ10, Yes [id number] 1{capsu Take 1 U nivers ubiquinol, 1-16 le} capsule by ity of 100 mg Cap 00:00: mouth [place] 00 daily. [facility] coQ10, Yes [id number] 1{capsu Take 1 U nivers ubiquinol, 1-16 le} capsule by ity of 100 mg Cap 00:00: mouth [place] 00 daily. [facility] coQ10, Yes [id number] 1{capsu Take 1 U nivers ubiquinol, 1-16 le} capsule by ity of 100 mg Cap 00:00: mouth [place] 00 daily. [facility] coQ10, Yes [id number] 1{capsu Take 1 U nivers ubiquinol, 1-16 le} capsule by ity of 100 mg Cap 00:00: mouth [place] 00 daily. [facility] coQ10, Yes [id number] 1{capsu Take 1 U nivers ubiquinol, 1-16 le} capsule by ity of 100 mg Cap 00:00: mouth [place] 00 daily. [facility] coQ10, Yes [id number] 1{capsu Take 1 U nivers ubiquinol, 1-16 le} capsule by ity of 100 mg Cap 00:00: mouth [place] 00 daily. [facility] coQ10, Yes [id number] 1{capsu Take 1 U nivers ubiquinol, 1-16 le} capsule by ity of 100 mg Cap 00:00: mouth [place] 00 daily. [facility] coQ10, Yes [id number] 1{capsu Take 1 U nivers ubiquinol, 1-16 le} capsule by ity of 100 mg Cap 00:00: mouth [place] 00 daily. [facility] coQ10, Yes [id number] 1{capsu Take 1 U nivers ubiquinol, 1-16 le} capsule by ity of 100 mg Cap 00:00: mouth [place] 00 daily. [facility] coQ10, Yes [id number] 1{capsu Take 1 U nivers ubiquinol, 1-16 le} capsule by ity of 100 mg Cap 00:00: mouth [place] 00 daily. [facility] coQ10, Yes [id number] 1{capsu Take 1 U nivers ubiquinol, 1-16 le} capsule by ity of 100 mg Cap 00:00: mouth [place] 00 daily. [facility] coQ10, Yes [id number] 1{capsu Take 1 U nivers ubiquinol, 1-16 le} capsule by ity of 100 mg Cap 00:00: mouth [place] 00 daily. [facility] coQ10, Yes [id number] 1{capsu Take 1 U nivers ubiquinol, 1-16 le} capsule by ity of 100 mg Cap 00:00: mouth [place] 00 daily. [facility] coQ10, Yes [id number] 1{capsu Take 1 U nivers ubiquinol, 1-16 le} capsule by ity of 100 mg Cap 00:00: mouth [place] 00 daily. [facility] coQ10, Yes [id number] 1{capsu Take 1 U nivers ubiquinol, 1-16 le} capsule by ity of 100 mg Cap 00:00: mouth [place] 00 daily. [facility] coQ10, Yes [id number] 1{capsu Take 1 U nivers ubiquinol, 1-16 le} capsule by ity of 100 mg Cap 00:00: mouth [place] 00 daily. [facility] coQ10, Yes [id number] 1{capsu Take 1 U nivers ubiquinol, 1-16 le} capsule by ity of 100 mg Cap 00:00: mouth [place] 00 daily. [facility] coQ10, Yes [id number] 1{capsu Take 1 U nivers ubiquinol, 1-16 le} capsule by ity of 100 mg Cap 00:00: mouth [place] 00 daily. [facility] coQ10, Yes [id number] 1{capsu Take 1 U nivers ubiquinol, 1-16 le} capsule by ity of 100 mg Cap 00:00: mouth [place] 00 daily. [facility] coQ10, Yes [id number] 1{capsu Take 1 U nivers ubiquinol, 1-16 le} capsule by ity of 100 mg Cap 00:00: mouth [place] 00 daily. [facility] coQ10, Yes [id number] 1{capsu Take 1 U nivers ubiquinol, 1-16 le} capsule by ity of 100 mg Cap 00:00: mouth [place] 00 daily. [facility] coQ10, Yes [id number] 1{capsu Take 1 U nivers ubiquinol, 1-16 le} capsule by ity of 100 mg Cap 00:00: mouth [place] 00 daily. [facility] coQ10, Yes [id number] 1{capsu Take 1 U nivers ubiquinol, 1-16 le} capsule by ity of 100 mg Cap 00:00: mouth [place] 00 daily. [facility] coQ10, Yes [id number] 1{capsu Take 1 U nivers ubiquinol, 1-16 le} capsule by ity of 100 mg Cap 00:00: mouth [place] 00 daily. [facility] coQ10, Yes [id number] 1{capsu Take 1 U nivers ubiquinol, 1-16 le} capsule by ity of 100 mg Cap 00:00: mouth [place] 00 daily. [facility] coQ10, Yes [id number] 1{capsu Take 1 U nivers ubiquinol, 1-16 le} capsule by ity of 100 mg Cap 00:00: mouth [place] 00 daily. [facility] coQ10, Yes [id number] 1{capsu Take 1 U nivers ubiquinol, 1-16 le} capsule by ity of 100 mg Cap 00:00: mouth [place] 00 daily. [facility] coQ10, Yes [id number] 1{capsu Take 1 U nivers ubiquinol, 1-16 le} capsule by ity of 100 mg Cap 00:00: mouth [place] 00 daily. [facility] coQ10, Yes [id number] 1{capsu Take 1 U nivers ubiquinol, 1-16 le} capsule by ity of 100 mg Cap 00:00: mouth [place] 00 daily. [facility] coQ10, Yes [id number] 1{capsu Take 1 U nivers ubiquinol, 1-16 le} capsule by ity of 100 mg Cap 00:00: mouth [place] 00 daily. [facility] coQ10, Yes [id number] 1{capsu Take 1 U nivers ubiquinol, 1-16 le} capsule by ity of 100 mg Cap 00:00: mouth [place] 00 daily. [facility] coQ10, Yes [id number] 1{capsu Take 1 U nivers ubiquinol, 1-16 le} capsule by ity of 100 mg Cap 00:00: mouth [place] 00 daily. [facility] coQ10, Yes [id number] 1{capsu Take 1 U nivers ubiquinol, 1-16 le} capsule by ity of 100 mg Cap 00:00: mouth [place] 00 daily. [facility] coQ10, Yes [id number] 1{capsu Take 1 U nivers ubiquinol, 1-16 le} capsule by ity of 100 mg Cap 00:00: mouth [place] 00 daily. [facility] coQ10, Yes [id number] 1{capsu Take 1 U nivers ubiquinol, 1-16 le} capsule by ity of 100 mg Cap 00:00: mouth [place] 00 daily. [facility] coQ10, Yes [id number] 1{capsu Take 1 U nivers ubiquinol, 1-16 le} capsule by ity of 100 mg Cap 00:00: mouth [place] 00 daily. [facility] coQ10, Yes [id number] 1{capsu Take 1 U nivers ubiquinol, 1-16 le} capsule by ity of 100 mg Cap 00:00: mouth [place] 00 daily. [facility] coQ10, Yes [id number] 1{capsu Take 1 U nivers ubiquinol, 1-16 le} capsule by ity of 100 mg Cap 00:00: mouth [place] 00 daily. [facility] coQ10, Yes [id number] 1{capsu Take 1 U nivers ubiquinol, 1-16 le} capsule by ity of 100 mg Cap 00:00: mouth [place] 00 daily. [facility] coQ10, Yes [id number] 1{capsu Take 1 U nivers ubiquinol, 1-16 le} capsule by ity of 100 mg Cap 00:00: mouth [place] 00 daily. [facility] coQ10, Yes [id number] 1{capsu Take 1 U nivers ubiquinol, 1-16 le} capsule by ity of 100 mg Cap 00:00: mouth [place] 00 daily. [facility] coQ10, Yes [id number] 1{capsu Take 1 U nivers ubiquinol, 1-16 le} capsule by ity of 100 mg Cap 00:00: mouth [place] 00 daily. [facility] coQ10, Yes [id number] 1{capsu Take 1 U nivers ubiquinol, 1-16 le} capsule by ity of 100 mg Cap 00:00: mouth [place] 00 daily. [facility] loratadine Yes [id number] 10mg Take 1 [facility] 10 mg 1-23 tablet by ity of tablet 00:00: mouth [place] 00 daily. [facility] loratadine Yes [id number] 10mg Take 1 [facility] 10 mg 1-23 tablet by ity of tablet 00:00: mouth [place] 00 daily. [facility] loratadine Yes [id number] 10mg Take 1 [facility] 10 mg 1-23 tablet by ity of tablet 00:00: mouth [place] 00 daily. [facility] loratadine Yes [id number] 10mg Take 1 [facility] 10 mg 1-23 tablet by ity of tablet 00:00: mouth [place] 00 daily. [facility] loratadine Yes [id number] 10mg Take 1 [facility] 10 mg 1-23 tablet by ity of tablet 00:00: mouth [place] 00 daily. [facility] loratadine 2021- No [id number] 10mg Take 1 [facility] 10 mg 1-23 06-13 tablet by ity of tablet 00:00: 00:00 mouth [place] 00 :00 daily. [facility] Immunizations Ordered Immunization Filled Immunization Date Status Commen ts Source Name Name SARS-COV-2 COVID-2022-07-27 Completed [facility] VACCINE 00:00:00 [facility] 12 YRS+, BIVALENT Branch 0.3ML, IM, ([employer]) SARS-COV-2 COVID-19 2022-07-27 Completed [facility] VACCINE 00:00:00 [facility] 12 YRS+, BIVALENT Branch 0.3ML, IM, (P[employer] BOOSTER) SARS-COV-2 COVID-19 2022-07-27 Completed [facility] VACCINE 00:00:00 [facility] 12 YRS+, BIVALENT Branch 0.3ML, IM, (P[employer] BOOSTER) SARS-COV-2 COVID-19 2022-07-27 Completed [facility] of [facility] VACCINE 00:00:00 [facility] 12 YRS+, BIVALENT Branch 0.3ML, IM, (P[employer] TOP BOOSTER) SARS-COV-2 COVID-19 2022-07-27 Completed [facility] of [facility] VACCINE 00:00:00 [facility] 12 YRS+, BIVALENT Branch 0.3ML, IM, (P[employer] BOOSTER) SARS-COV-2 COVID-19 2022-07-27 Completed [facility] of [facility] VACCINE 00:00:00 [facility] 12 YRS+, BIVALENT Branch 0.3ML, IM, (P[employer] BOOSTER) SARS-COV-2 COVID-19 2022-07-27 Completed [facility] of [facility] VACCINE 00:00:00 [facility] 12 YRS+, BIVALENT Branch 0.3ML, IM, (P[employer] BOOSTER) SARS-COV-2 COVID-19 2022-07-27 Completed [facility] of [facility] VACCINE 00:00:00 [facility] 12 YRS+, BIVALENT Branch 0.3ML, IM, (P[employer] BOOSTER) SARS-COV-2 COVID-19 2022-07-27 Completed [facility] of [facility] VACCINE 00:00:00 [facility] 12 YRS+, BIVALENT Branch 0.3ML, IM, (P[employer] TOP BOOSTER) SARS-COV-2 COVID-19 2022-07-27 Completed [facility] of [facility] VACCINE 00:00:00 [facility] 12 YRS+, BIVALENT Branch 0.3ML, IM, (P[employer] BOOSTER) SARS-COV-2 COVID-19 2022-07-27 Completed [facility] of [facility] VACCINE 00:00:00 [facility] 12 YRS+, BIVALENT Branch 0.3ML, IM, (P[employer] TOP BOOSTER) SARS-COV-2 COVID-19 2022-07-27 Completed [facility] of [facility] VACCINE 00:00:00 [facility] 12 YRS+, BIVALENT Branch 0.3ML, IM, (P[employer] BOOSTER) SARS-COV-2 COVID-19 2022-07-27 Completed [facility] of [facility] VACCINE 00:00:00 [facility] 12 YRS+, BIVALENT Branch 0.3ML, IM, (P[employer] TOP BOOSTER) SARS-COV-2 COVID-19 2022-07-27 Completed [facility] of [facility] VACCINE 00:00:00 [facility] 12 YRS+, BIVALENT Branch 0.3ML, IM, (P[employer] TOP BOOSTER) SARS-COV-2 COVID-19 2022-07-27 Completed [facility] of [facility] VACCINE 00:00:00 [facility] 12 YRS+, BIVALENT Branch 0.3ML, IM, (P[employer] TOP BOOSTER) SARS-COV-2 COVID-19 2022-07-27 Completed [facility] of [facility] VACCINE 00:00:00 [facility] 12 YRS+, BIVALENT Branch 0.3ML, IM, (PFI[employer] TOP BOOSTER) SARS-COV-2 COVID-19 2022-07-27 Completed [facility] of [facility] VACCINE 00:00:00 [facility] 12 YRS+, BIVALENT Branch 0.3ML, IM, (P[employer] TOP BOOSTER) SARS-COV-2 COVID-19 2022-07-27 Completed [facility] of [facility] VACCINE 00:00:00 [facility] 12 YRS+, BIVALENT Branch 0.3ML, IM, (PFI[employer] TOP BOOSTER) SARS-COV-2 COVID-19 2022-07-27 Completed [facility] of [facility] VACCINE 00:00:00 [facility] 12 YRS+, BIVALENT Branch 0.3ML, IM, (PFI[employer] TOP BOOSTER) SARS-COV-2 COVID-19 2022-07-27 Completed [facility] of [facility] VACCINE 00:00:00 [facility] 12 YRS+, BIVALENT Branch 0.3ML, IM, (PFI[employer] TOP BOOSTER) SARS-COV-2 COVID-19 2022-07-27 Completed [facility] of [facility] VACCINE 00:00:00 [facility] 12 YRS+, BIVALENT Branch 0.3ML, IM, (PFIZ[employer] F[employer] TOP BOOSTER) SARS-COV-2 COVID-19 2022-07-27 Completed [facility] of [facility] VACCINE 00:00:00 [facility] 12 YRS+, BIVALENT Branch 0.3ML, IM, (PFI[employer] TOP BOOSTER) SARS-COV-2 COVID-19 2022-07-27 Completed [facility] of [facility] VACCINE 00:00:00 [facility] 12 YRS+, BIVALENT Branch 0.3ML, IM, (PFIZ[employer] TOP BOOSTER) SARS-COV-2 COVID-19 2022-07-27 Completed [facility] of [facility] VACCINE 00:00:00 [facility] 12 YRS+, BIVALENT Branch 0.3ML, IM, (P[employer] TOP BOOSTER) SARS-COV-2 COVID-19 2022-07-27 Completed [facility] of [facility] VACCINE 00:00:00 [facility] 12 YRS+, BIVALENT Branch 0.3ML, IM, (PFI[employer] TOP BOOSTER) SARS-COV-2 COVID-19 2022-07-27 Completed [facility] of [facility] VACCINE 00:00:00 [facility] 12 YRS+, BIVALENT Branch 0.3ML, IM, (PFIZ[employer] F[employer] TOP BOOSTER) SARS-COV-2 COVID-19 2022-07-27 Completed [facility] of [facility] VACCINE 00:00:00 [facility] 12 YRS+, BIVALENT Branch 0.3ML, IM, (PFI[employer] TOP BOOSTER) SARS-COV-2 COVID-19 2022-07-27 Completed [facility] of [facility] VACCINE 00:00:00 [facility] 12 YRS+, BIVALENT Branch 0.3ML, IM, (PFIZ[employer] F[employer] TOP BOOSTER) SARS-COV-2 COVID-19 2022-07-27 Completed [facility] of [facility] VACCINE 00:00:00 [facility] 12 YRS+, BIVALENT Branch 0.3ML, IM, (PFIZ[employer] TOP BOOSTER) SARS-COV-2 COVID-19 2022-07-27 Completed [facility] of [facility] VACCINE 00:00:00 [facility] 12 YRS+, BIVALENT Branch 0.3ML, IM, (PFIZ[employer] F[employer] TOP BOOSTER) SARS-COV-2 COVID-19 2022-07-27 Completed [facility] of [facility] VACCINE 00:00:00 [facility] 12 YRS+, BIVALENT Branch 0.3ML, IM, (PFIZER F[employer] TOP BOOSTER) SARS-COV-2 COVID-19 2022-07-27 Completed [facility] of [facility] VACCINE 00:00:00 [facility] 12 YRS+, BIVALENT Branch 0.3ML, IM, (PFIZER FOUNTAIN TOP BOOSTER) SARS-COV-2 COVID-19 2022-07-27 Completed [facility] of [facility] VACCINE 00:00:00 [facility] 12 YRS+, BIVALENT Branch 0.3ML, IM, (PFIZER F[employer]AIN TOP BOOSTER) SARS-COV-2 COVID-19 2022-07-27 Completed [facility] of [facility] VACCINE 00:00:00 [facility] 12 YRS+, BIVALENT Branch 0.3ML, IM, (PFI[employer] TOP BOOSTER) SARS-COV-2 COVID-19 2022-07-27 Completed [facility] of [facility] VACCINE 00:00:00 [facility] 12 YRS+, BIVALENT Branch 0.3ML, IM, (PFIZ[employer] F[employer] TOP BOOSTER) SARS-COV-2 COVID-19 2022-07-27 Completed [facility] of [facility] VACCINE 00:00:00 [facility] 12 YRS+, BIVALENT Branch 0.3ML, IM, (PFIZ[employer] F[employer]AIN TOP BOOSTER) SARS-COV-2 COVID-19 2022-07-27 Completed [facility] of [facility] VACCINE 00:00:00 [facility] 12 YRS+, BIVALENT Branch 0.3ML, IM, (PFIZER FOUNTAIN TOP BOOSTER) SARS-COV-2 COVID-19 2022-07-27 Completed [facility] of [facility] VACCINE 00:00:00 [facility] 12 YRS+, BIVALENT Branch 0.3ML, IM, (PFIZER FOUNTAIN TOP BOOSTER) SARS-COV-2 COVID-19 2022-07-27 Completed [facility] of [facility] VACCINE 00:00:00 [facility] 12 YRS+, BIVALENT Branch 0.3ML, IM, (PFIZER FOUNT[employer] TOP BOOSTER) SARS-COV-2 COVID-19 2022-07-27 Completed [facility] of [facility] VACCINE 00:00:00 [facility] 12 YRS+, BIVALENT Branch 0.3ML, IM, (PFIZ[employer] FOUNT[employer] TOP BOOSTER) SARS-COV-2 COVID-19 2022-07-27 Completed [facility] of [facility] VACCINE 00:00:00 [facility] 12 YRS+, BIVALENT Branch 0.3ML, IM, (PFIZER FOUNT[employer] TOP BOOSTER) SARS-COV-2 COVID-19 2022-07-27 Completed [facility] of [facility] VACCINE 00:00:00 [facility] 12 YRS+, BIVALENT Branch 0.3ML, IM, (PFIZER FOUNTAIN TOP BOOSTER) SARS-COV-2 COVID-19 2022-07-27 Completed [facility] of [facility] VACCINE 00:00:00 [facility] 12 YRS+, BIVALENT Branch 0.3ML, IM, (PFIZER FOUNTAIN TOP BOOSTER) SARS-COV-2 COVID-19 2022-07-27 Completed [facility] of [facility] VACCINE 00:00:00 [facility] 12 YRS+, BIVALENT Branch 0.3ML, IM, (PFIZER FOUNTAIN TOP BOOSTER) SARS-COV-2 COVID-19 2022-07-27 Completed [facility] of [facility] VACCINE 00:00:00 [facility] 12 YRS+, BIVALENT Branch 0.3ML, IM, (PFIZ[employer] F[employer] TOP BOOSTER) SARS-COV-2 COVID-19 2022-07-27 Completed [facility] of [facility] VACCINE 00:00:00 [facility] 12 YRS+, BIVALENT Branch 0.3ML, IM, (PFIZ[employer] F[employer] TOP BOOSTER) SARS-COV-2 COVID-19 2022-07-27 Completed [facility] of [facility] VACCINE 00:00:00 [facility] 12 YRS+, BIVALENT Branch 0.3ML, IM, (PFIZ[employer] F[employer] TOP BOOSTER) SARS-COV-2 COVID-19 2022-07-27 Completed [facility] of [facility] VACCINE 00:00:00 [facility] 12 YRS+, BIVALENT Branch 0.3ML, IM, (PFIZER FOUNT[employer] TOP BOOSTER) SARS-COV-2 COVID-19 2022-07-27 Completed [facility] of [facility] VACCINE 00:00:00 [facility] 12 YRS+, BIVALENT Branch 0.3ML, IM, (PFIZ[employer] F[employer] TOP BOOSTER) SARS-COV-2 COVID-19 2022-07-27 Completed [facility] of [facility] VACCINE 00:00:00 [facility] 12 YRS+, BIVALENT Branch 0.3ML, IM, (PFIZ[employer] F[employer] TOP BOOSTER) SARS-COV-2 COVID-19 2022-07-27 Completed [facility] of [facility] VACCINE 00:00:00 [facility] 12 YRS+, BIVALENT Branch 0.3ML, IM, (PFIZ[employer] F[employer] TOP BOOSTER) SARS-COV-2 COVID-19 2022-07-27 Completed [facility] of [facility] VACCINE 00:00:00 [facility] 12 YRS+, BIVALENT Branch 0.3ML, IM, (PFIZ[employer] F[employer] TOP BOOSTER) SARS-COV-2 COVID-19 2022-07-27 Completed [facility] of [facility] VACCINE 00:00:00 [facility] 12 YRS+, BIVALENT Branch 0.3ML, IM, (PFIZ[employer] F[employer] TOP BOOSTER) SARS-COV-2 COVID-19 2022-07-27 Completed [facility] of [facility] VACCINE 00:00:00 [facility] 12 YRS+, BIVALENT Branch 0.3ML, IM, (PFIZER FOUNT[employer] TOP BOOSTER) SARS-COV-2 COVID-19 2022-07-27 Completed [facility] of [facility] VACCINE 00:00:00 [facility] 12 YRS+, BIVALENT Branch 0.3ML, IM, (PFIZER FOUNT[employer] TOP BOOSTER) SARS-COV-2 COVID-19 2022-07-27 Completed [facility] of [facility] VACCINE 00:00:00 [facility] 12 YRS+, BIVALENT Branch 0.3ML, IM, (PFIZER [employer]ON[employer] TOP BOOSTER) SARS-COV-2 COVID-19 2022-07-27 Completed Un[facility] of [facility] VACCINE 00:00:00 [facility] 12 YRS+, BIVALENT Branch 0.3ML, IM, (PFI[employer] F[employer] TOP BOOSTER) SARS-COV-2 COVID-19 2022-07-27 Completed Un[facility] of [facility] VACCINE 00:00:00 [facility] 12 YRS+, BIVALENT Branch 0.3ML, IM, (PFIZER FOUNT[employer] TOP BOOSTER) SARS-COV-2 COVID-19 2022-07-27 Completed [facility] of [facility] VACCINE 00:00:00 [facility] 12 YRS+, BIVALENT Branch 0.3ML, IM, (PFIZER FOUNTAIN TOP BOOSTER) SARS-COV-2 COVID-19 2022-07-27 Completed [facility] of [facility] VACCINE 00:00:00 [facility] 12 YRS+, BIVALENT Branch 0.3ML, [...] b) 2022-02-24 Completed [facility] of 00:00:00 [facility] (hep a/hep b) 2022-02-24 [...] b) 2022-02-24 Completed [facility] 00:00:00 [facility] (hep a/hep b) 2022-02-24 Completed [facility] of 00:00:00 [facility] (hep a/hep b) 2022-02-24 Completed [facility] of 00:00:00 [facility] (hep a/hep b) 2022-02-24 Completed [facility] vers[facility] of 00:00:00 [facility] (hep a/hep b) 2022-02-24 Completed [facility] of 00:00:00 [facility] (hep a/hep b) 2022-02-24 Completed [facility] of 00:00:00 [facility] (hep a/hep b) 2022-02-24 Completed [...] b) 2022-02-24 Completed [facility] 00:00:00 [facility] (hep a/hep b) 2022-02-24 [...] b) 2022-02-24 Completed [facility] of 00:00:00 [facility] (hep a/hep b) 2022-02-24 Completed [facility] of 00:00:00 [facility] (hep a/hep b) 2022-02-24 Completed [facility] of 00:00:00 [facility] (hep a/hep b) 2022-02-24 Completed [facility] of 00:00:00 [facility] (hep a/hep b) 2022-02-24 Completed [facility] of 00:00:00 [facility] (hep a/hep b) 2022-02-24 Completed [facility] of 00:00:00 [facility] (hep a/hep b) 2022-02-24 Completed [facility] of 00:00:00 [facility] (hep a/hep b) 2022-02-24 Completed [facility] 00:00:00 [facility] (hep a/hep b) 2022-02-24 Completed [facility] 00:00:00 [facility] (hep a/hep b) 2022-02-24 Completed [facility] 00:00:00 [facility] (hep a/hep b) 2022-02-24 Completed [facility] 00:00:00 [facility] (hep a/hep b) 2022-02-24 [...] b) 2022-02-24 Completed [facility] 00:00:00 [facility] (hep a/hep b) 2022-02-24 Completed [facility] 00:00:00 [facility] (hep a/hep b) 2022-02-24 Completed [facility] 00:00:00 [facility] (hep a/hep b) 2022-02-24 Completed [facility] 00:00:00 [facility] (hep a/hep b) 2022-02-24 Completed [facility] 00:00:00 [facility] (hep a/hep b) 2022-02-24 Completed [facility] [facility] (hep a/hep b) 2022-02-24 Completed [facility] 00:00:00 [facility] (hep a/hep b) 2022-02-24 Completed [facility] 00:00:00 [facility] (hep a/hep b) 2022-02-24 Completed [facility] 00:00:00 [facility] (hep a/hep b) 2022-02-24 Completed [facility] 00:00:00 [facility] (hep a/hep b) 2022-02-24 Completed [facility] 00:00:00 [facility] (hep a/hep b) 2022-02-24 Completed [facility] 00:00:00 [facility] (hep a/hep b) 2022-02-24 Completed [facility] 00:00:00 [facility] (hep a/hep b) 2022-02-24 Completed [facility] 00:00:00 [facility] (hep a/hep b) 2022-02-24 Completed [facility] of 00:00:00 [facility] (hep a/hep b) 2022-02-24 Completed [facility] vers[facility] of 00:00:00 [facility] (hep a/hep b) 2022-02-24 Completed [facility] vers[facility] of 00:00:00 [facility] (hep a/hep b) 2022-02-24 Completed [facility] 00:00:00 [facility] (hep a/hep b) 2022-02-24 Completed [facility] vers[facility] of 00:00:00 [facility] (hep a/hep b) 2022-02-24 Completed [facility] vers[facility] of 00:00:00 [facility] (hep a/hep b) 2022-02-24 Completed [facility] 00:00:00 [facility] (hep a/hep b) 2022-02-24 Completed [facility] vers[facility] of 00:00:00 [facility] (hep a/hep b) 2022-02-24 Completed [facility] 00:00:00 [facility] (hep a/hep b) 2022-02-24 Completed [facility] vers[facility] 00:00:00 [facility] (hep a/hep b) 2022-02-24 Completed [facility] 00:00:00 [facility] (hep a/hep b) 2022-02-24 Completed [facility] vers[facility] 00:00:00 [facility] (hep a/hep b) 2022-02-24 Completed [facility] vers[facility] of 00:00:00 [facility] (hep a/hep b) 2022-02-24 Completed [facility] vers[facility] 00:00:00 [facility] (hep a/hep b) 2022-02-24 Completed [facility] vers[facility] of 00:00:00 [facility] (hep a/hep b) 2022-02-24 Completed [facility] 00:00:00 [facility] (hep a/hep b) 2022-02-24 Completed [...] b) 2022-02-24 Completed [facility] vers[facility] 00:00:00 [facility] (hep a/hep b) 2022-02-24 Completed [facility] vers[facility] of 00:00:00 [facility] (hep a/hep b) 2022-02-24 Completed [facility] vers[facility] of 00:00:00 [facility] (hep a/hep b) 2022-02-24 Completed [facility] vers[facility] of 00:00:00 [facility] (hep a/hep b) 2022-02-24 Completed [facility] vers[facility] of 00:00:00 [facility] (hep a/hep b) 2022-02-24 Completed [facility] 00:00:00 [facility] (hep a/hep b) 2022-02-24 Completed [...] b) 2022-02-24 Completed [facility] vers[facility] 00:00:00 [facility] (hep a/hep b) 2022-02-24 Completed [facility] vers[facility] of 00:00:00 [facility] (hep a/hep b) 2022-02-24 Completed [facility] vers[facility] of 00:00:00 [facility] (hep a/hep b) 2022-02-24 Completed [facility] vers[facility] of 00:00:00 [facility] (hep a/hep b) 2022-02-24 Completed [facility] vers[facility] of 00:00:00 [facility] (hep a/hep b) 2022-02-24 Completed [facility] 00:00:00 [facility] (hep a/hep b) 2022-02-24 Completed [facility] vers[facility] of 00:00:00 [facility] (hep a/hep b) 2022-02-24 Completed [facility] vers[facility] 00:00:00 [facility] (hep a/hep b) 2022-02-24 Completed [facility] vers[facility] of 00:00:00 [facility] (hep a/hep b) 2022-02-24 Completed [facility] vers[facility] of 00:00:00 [facility] (hep a/hep b) 2022-02-24 Completed [facility] vers[facility] 00:00:00 [facility] (hep a/hep b) 2022-02-24 Completed [facility] vers[facility] of 00:00:00 [facility] (hep a/hep b) 2022-02-24 Completed [facility] vers[facility] of 00:00:00 [facility] (hep a/hep b) 2022-02-24 Completed [facility] vers[facility] of 00:00:00 [facility] (hep a/hep b) 2022-02-24 Completed [facility] vers[facility] of 00:00:00 [facility] (hep a/hep b) 2022-02-24 Completed [facility] vers[facility] of 00:00:00 [facility] (hep a/hep b) 2022-02-24 Completed [facility] vers[facility] of 00:00:00 [facility] (hep a/hep b) 2022-02-24 Completed [...] b) 2022-02-24 Completed [facility] vers[facility] 00:00:00 [facility] (hep a/hep b) 2022-02-24 Completed [facility] vers[facility] of 00:00:00 [facility] (hep a/hep b) 2022-02-24 Completed [facility] vers[facility] of 00:00:00 [facility] (hep a/hep b) 2022-02-24 Completed [facility] vers[facility] of 00:00:00 [facility] (hep a/hep b) 2022-02-24 Completed [facility] vers[facility] of 00:00:00 [facility] (hep a/hep b) 2022-02-24 Completed [facility] vers[facility] 00:00:00 [facility] (hep a/hep b) 2022-02-24 Completed [facility] vers[facility] 00:00:00 [facility] (hep a/hep b) 2022-02-24 Completed Uni vers[facility] of 00:00:00 [facility] (hep a/hep b) 2022-01-14 Completed [facility] vers[facility] of 00:00:00 [facility] (hep a/hep b) 2022-01-14 Completed Uni vers[facility] of 00:00:00 [facility] (hep a/hep b) 2022-01-14 Completed [facility] vers[facility] of 00:00:00 [facility] (hep a/hep b) 2022-01-14 Completed [facility] vers[facility] 00:00:00 [facility] (hep a/hep b) 2022-01-14 Completed [facility] vers[facility] of 00:00:00 [facility] (hep a/hep b) 2022-01-14 Completed [facility] vers[facility] of 00:00:00 [facility] (hep a/hep b) 2022-01-14 Completed Uni vers[facility] of 00:00:00 [facility] (hep a/hep b) 2022-01-14 Completed [facility] vers[facility] of 00:00:00 [facility] (hep a/hep b) 2022-01-14 Completed [facility] vers[facility] 00:00:00 [facility] (hep a/hep b) 2022-01-14 Completed Uni vers[facility] of 00:00:00 [facility] (hep a/hep b) 2022-01-14 Completed [facility] vers[facility] of 00:00:00 [facility] (hep a/hep b) 2022-01-14 Completed [facility] vers[facility] of 00:00:00 [facility] (hep a/hep b) 2022-01-14 Completed [facility] vers[facility] of 00:00:00 [facility] (hep a/hep b) 2022-01-14 Completed [facility] vers[facility] of 00:00:00 [facility] (hep a/hep b) 2022-01-14 Completed [facility] vers[facility] of 00:00:00 [facility] (hep a/hep b) 2022-01-14 Completed [facility] vers[facility] of 00:00:00 [facility] (hep a/hep b) 2022-01-14 Completed [facility] vers[facility] of 00:00:00 [facility] (hep a/hep b) 2022-01-14 Completed [facility] 00:00:00 [facility] (hep a/hep b) 2022-01-14 Completed [facility] vers[facility] of 00:00:00 [facility] (hep a/hep b) 2022-01-14 Completed [facility] vers[facility] of 00:00:00 [facility] (hep a/hep b) 2022-01-14 Completed [...] b) 2022-01-14 Completed [facility] vers[facility] 00:00:00 [facility] (hep a/hep b) 2022-01-14 Completed [facility] vers[facility] 00:00:00 [facility] (hep a/hep b) 2022-01-14 Completed Uni vers[facility] of 00:00:00 [facility] (hep a/hep b) 2022-01-14 Completed [facility] vers[facility] of 00:00:00 [facility] (hep a/hep b) 2022-01-14 Completed [facility] vers[facility] of 00:00:00 [facility] (hep a/hep b) 2022-01-14 Completed [facility] vers[facility] 00:00:00 [facility] (hep a/hep b) 2022-01-14 Completed [facility] 00:00:00 [facility] (hep a/hep b) 2022-01-14 Completed [facility] vers[facility] of 00:00:00 [facility] (hep a/hep b) 2022-01-14 Completed [facility] vers[facility] of 00:00:00 [facility] (hep a/hep b) 2022-01-14 Completed [facility] vers[facility] 00:00:00 [facility] (hep a/hep b) 2022-01-14 Completed [facility] vers[facility] of 00:00:00 [facility] (hep a/hep b) 2022-01-14 Completed [facility] 00:00:00 [facility] (hep a/hep b) 2022-01-14 Completed Uni vers[facility] of 00:00:00 [facility] (hep a/hep b) 2022-01-14 Completed Uni vers[facility] of 00:00:00 [facility] (hep a/hep b) 2022-01-14 Completed Uni vers[facility] of 00:00:00 [facility] (hep a/hep b) 2022-01-14 Completed [facility] vers[facility] of 00:00:00 [facility] (hep a/hep b) 2022-01-14 Completed [facility] vers[facility] of 00:00:00 [facility] (hep a/hep b) 2022-01-14 Completed [facility] 00:00:00 [facility] (hep a/hep b) 2022-01-14 Completed [facility] vers[facility] 00:00:00 [facility] (hep a/hep b) 2022-01-14 Completed [facility] 00:00:00 [facility] (hep a/hep b) 2022-01-14 Completed [facility] vers[facility] 00:00:00 [facility] (hep a/hep b) 2022-01-14 Completed [facility] vers[facility] 00:00:00 [facility] (hep a/hep b) 2022-01-14 Completed [facility] vers[facility] 00:00:00 [facility] (hep a/hep b) 2022-01-14 Completed [facility] 00:00:00 [facility] (hep a/hep b) 2022-01-14 Completed [facility] 00:00:00 [facility] (hep a/hep b) 2022-01-14 Completed [facility] vers[facility] 00:00:00 [facility] (hep a/hep b) 2022-01-14 Completed [facility] vers[facility] 00:00:00 [facility] (hep a/hep b) 2022-01-14 Completed [facility] vers[facility] of 00:00:00 [facility] (hep a/hep b) 2022-01-14 Completed [facility] vers[facility] 00:00:00 [facility] (hep a/hep b) 2022-01-14 Completed [facility] vers[facility] of 00:00:00 [facility] (hep a/hep b) 2022-01-14 Completed [facility] vers[facility] of 00:00:00 [facility] (hep a/hep b) 2022-01-14 Completed [facility] vers[facility] of 00:00:00 [facility] (hep a/hep b) 2022-01-14 Completed [facility] vers[facility] of 00:00:00 [facility] (hep a/hep b) 2022-01-14 Completed [facility] vers[facility] of 00:00:00 [facility] (hep a/hep b) 2022-01-14 Completed [facility] vers[facility] of 00:00:00 [facility] (hep a/hep b) 2022-01-14 Completed [facility] 00:00:00 [facility] (hep a/hep b) 2022-01-14 Completed [facility] vers[facility] 00:00:00 [facility] (hep a/hep b) 2022-01-14 Completed [facility] vers[facility] 00:00:00 [facility] (hep a/hep b) 2022-01-14 Completed [facility] vers[facility] 00:00:00 [facility] (hep a/hep b) 2022-01-14 Completed [facility] vers[facility] 00:00:00 [facility] (hep a/hep b) 2022-01-14 Completed [facility] 00:00:00 [facility] (hep a/hep b) 2022-01-14 Completed [facility] 00:00:00 [facility] (hep a/hep b) 2022-01-14 Completed [facility] vers[facility] of 00:00:00 [facility] (hep a/hep b) 2022-01-14 Completed [facility] 00:00:00 [facility] (hep a/hep b) 2022-01-14 Completed [facility] 00:00:00 [facility] (hep a/hep b) 2022-01-14 Completed [facility] 00:00:00 [facility] (hep a/hep b) 2022-01-14 Completed [facility] vers[facility] of 00:00:00 [facility] (hep a/hep b) 2022-01-14 Completed [facility] vers[facility] of 00:00:00 [facility] (hep a/hep b) 2022-01-14 Completed [facility] vers[facility] of 00:00:00 [facility] (hep a/hep b) 2022-01-14 Completed Uni vers[facility] of 00:00:00 [facility] (hep a/hep b) 2022-01-14 Completed [facility] vers[facility] of 00:00:00 [facility] (hep a/hep b) 2022-01-14 Completed [facility] vers[facility] of 00:00:00 [facility] (hep a/hep b) 2022-01-14 Completed [facility] 00:00:00 [facility] (hep a/hep b) 2022-01-14 Completed Uni vers[facility] of 00:00:00 [facility] (hep a/hep b) 2022-01-14 Completed [facility] vers[facility] of 00:00:00 [facility] (hep a/hep b) 2022-01-14 Completed [facility] vers[facility] 00:00:00 [facility] (hep a/hep b) 2022-01-14 Completed [facility] vers[facility] 00:00:00 [facility] (hep a/hep b) 2022-01-14 Completed [facility] vers[facility] of 00:00:00 [facility] (hep a/hep b) 2022-01-14 Completed [facility] vers[facility] 00:00:00 [facility] (hep a/hep b) 2022-01-14 Completed [facility] vers[facility] 00:00:00 [facility] (hep a/hep b) 2022-01-14 Completed [facility] 00:00:00 [facility] (hep a/hep b) 2022-01-14 Completed [facility] vers[facility] of 00:00:00 [facility] (hep a/hep b) 2022-01-14 Completed [facility] vers[facility] of 00:00:00 [facility] (hep a/hep b) 2022-01-14 Completed [...] b) 2022-01-14 Completed [facility] 00:00:00 [facility] (hep a/hep b) 2022-01-14 Completed [facility] 00:00:00 [facility] (hep a/hep b) 2022-01-14 Completed [facility] vers[facility] of 00:00:00 [facility] (hep a/hep b) 2022-01-14 Completed [facility] vers[facility] 00:00:00 [facility] (hep a/hep b) 2022-01-14 Completed [facility] vers[facility] of 00:00:00 [facility] (hep a/hep b) 2022-01-14 Completed [facility] vers[facility] of 00:00:00 [facility] (hep a/hep b) 2022-01-14 Completed [facility] 00:00:00 [facility] (hep a/hep b) 2022-01-14 Completed [facility] vers[facility] of 00:00:00 [facility] (hep a/hep b) 2022-01-14 Completed [facility] vers[facility] of 00:00:00 [facility] (hep a/hep b) 2022-01-14 Completed [facility] vers[facility] of 00:00:00 [facility] (hep a/hep b) 2022-01-14 Completed [facility] vers[facility] of 00:00:00 [facility] (hep a/hep b) 2022-01-14 Completed [facility] vers[facility] 00:00:00 [facility] (hep a/hep b) 2022-01-14 Completed [facility] vers[facility] of 00:00:00 [facility] (hep a/hep b) 2022-01-14 Completed Uni vers[facility] of 00:00:00 [facility] (hep a/hep b) 2022-01-14 Completed Uni vers[facility] of 00:00:00 [facility] (hep a/hep b) 2022-01-14 Completed Uni vers[facility] of 00:00:00 [facility] (hep a/hep b) 2022-01-14 Completed Uni vers[facility] of 00:00:00 [facility] (hep a/hep b) 2022-01-14 Completed [facility] vers[facility] of 00:00:00 [facility] (hep a/hep b) 2022-01-14 Completed [facility] vers[facility] of 00:00:00 [facility] (hep a/hep b) 2022-01-14 Completed Uni versity of 00:00:00 [facility] (hep a/hep b) 2022-01-14 Completed Uni versity of 00:00:00 [facility] (hep a/hep b) 2022-01-14 Completed [facility] vers[facility] of 00:00:00 [facility] (hep a/hep b) 2022-01-14 Completed Uni vers[facility] of 00:00:00 [facility] (hep a/hep b) 2022-01-14 Completed [facility] 00:00:00 [facility] SARS-COV-2 COVID-19 2021-07-23 Completed Unive rsity of PFIZER VACCINE 00:00:00 [facility] SARS-COV-2 COVID-19 2021-07-23 Completed Unive rsity of PFIZER VACCINE 00:00:00 [facility] SARS-COV-2 COVID-19 2021-07-23 Completed Unive rsity of PFIZER VACCINE 00:00:00 [facility] SARS-COV-2 COVID-19 2021-07-23 Completed Unive [facility]ity of PFIZER VACCINE 00:00:00 [facility] SARS-COV-2 COVID-19 2021-07-23 Completed [facility] PFIZER VACCINE 00:00:00 [facility] SARS-COV-2 COVID-19 2021-07-23 Completed Unive [facility]ity of PFIZER VACCINE 00:00:00 [facility] SARS-COV-2 COVID-19 2021-07-23 Completed Unive rsity of PFIZER VACCINE 00:00:00 [facility] SARS-COV-2 COVID-19 2021-07-23 Completed Unive rsity of PFIZER VACCINE 00:00:00 [facility] SARS-COV-2 COVID-19 2021-07-23 Completed [facility]ity of PFIZER VACCINE 00:00:00 [facility] SARS-COV-2 COVID-19 2021-07-23 Completed Unive rsity of PFIZER VACCINE 00:00:00 [facility] SARS-COV-2 COVID-19 2021-07-23 Completed Unive rsity of PFIZER VACCINE 00:00:00 [facility] SARS-COV-2 COVID-19 2021-07-23 Completed Unive [facility]ity of PFIZER VACCINE 00:00:00 [facility] SARS-COV-2 COVID-19 2021-07-23 Completed [facility]ive rsity of PFIZER VACCINE 00:00:00 [facility] SARS-COV-2 COVID-19 2021-07-23 Completed [facility]ive rsity of PFIZER VACCINE 00:00:00 [facility] SARS-COV-2 COVID-19 2021-07-23 Completed Unive rsity of PFIZER VACCINE 00:00:00 [facility] SARS-COV-2 COVID-19 2021-07-23 Completed Unive rsity of PFIZER VACCINE 00:00:00 [facility] SARS-COV-2 COVID-19 2021-07-23 Completed Unive [facility]ity of PFIZER VACCINE 00:00:00 [facility] SARS-COV-2 COVID-19 2021-07-23 Completed [facility]ive [facility]ity of PFIZER VACCINE 00:00:00 [facility] SARS-COV-2 COVID-19 2021-07-23 Completed [facility]ity of PFIZER VACCINE 00:00:00 [facility] SARS-COV-2 COVID-19 2021-07-23 Completed Unive [facility]ity of PFIZER VACCINE 00:00:00 [facility] SARS-COV-2 COVID-19 2021-07-23 Completed [facility]ive [facility]ity of PFIZER VACCINE 00:00:00 [facility] SARS-COV-2 COVID-19 2021-07-23 Completed [facility]ive [facility]ity of PFIZER VACCINE 00:00:00 [facility] SARS-COV-2 COVID-19 2021-07-23 Completed [facility] of PFIZER VACCINE 00:00:00 [facility] SARS-COV-2 COVID-19 2021-07-23 Completed [facility]ive [facility]ity of PFIZER VACCINE 00:00:00 [facility] SARS-COV-2 COVID-19 2021-07-23 Completed [facility] of PFIZER VACCINE 00:00:00 [facility] SARS-COV-2 COVID-19 2021-07-23 Completed [facility] of PFIZER VACCINE 00:00:00 [facility] SARS-COV-2 COVID-19 2021-07-23 Completed [facility] of PFIZER VACCINE 00:00:00 [facility] SARS-COV-2 COVID-19 2021-07-23 Completed [facility] of PFIZER VACCINE 00:00:00 [facility] SARS-COV-2 COVID-19 2021-07-23 Completed [facility] of PFIZER VACCINE 00:00:00 [facility] SARS-COV-2 COVID-19 2021-07-23 Completed [facility] of PFIZER VACCINE 00:00:00 [facility] SARS-COV-2 COVID-19 2021-07-23 Completed [facility] of PFIZER VACCINE 00:00:00 [facility] SARS-COV-2 COVID-19 2021-07-23 Completed [facility] of PFIZER VACCINE 00:00:00 [facility] SARS-COV-2 COVID-19 2021-07-23 Completed [facility] of PFIZER VACCINE 00:00:00 [facility] SARS-COV-2 COVID-19 2021-07-23 Completed [facility] of PFIZER VACCINE 00:00:00 [facility] SARS-COV-2 COVID-19 2021-07-23 Completed [facility] of PFIZER VACCINE 00:00:00 [facility] SARS-COV-2 COVID-19 2021-07-23 Completed Un[facility] rsity of PFIZER VACCINE 00:00:00 [facility] SARS-COV-2 COVID-19 2021-07-23 Completed Un[facility]ity of PFIZER VACCINE 00:00:00 [facility] SARS-COV-2 COVID-19 2021-07-23 Completed [facility] of PFIZER VACCINE 00:00:00 [facility] SARS-COV-2 COVID-19 2021-07-23 Completed [facility] of PFIZER VACCINE 00:00:00 [facility] SARS-COV-2 COVID-19 2021-07-23 Completed [facility] of PFIZER VACCINE 00:00:00 [facility] SARS-COV-2 COVID-19 2021-07-23 Completed [facility]ive [facility]ity of PFIZER VACCINE 00:00:00 [facility] SARS-COV-2 COVID-19 2021-07-23 Completed [facility]ity of PFIZER VACCINE 00:00:00 [facility] SARS-COV-2 COVID-19 2021-07-23 Completed Unive rsity of PFIZER VACCINE 00:00:00 [facility] SARS-COV-2 COVID-19 2021-07-23 Completed [facility]ity of PFIZER VACCINE 00:00:00 [facility] SARS-COV-2 COVID-19 2021-07-23 Completed [facility] of PFIZER VACCINE 00:00:00 [facility] SARS-COV-2 COVID-19 2021-07-23 Completed [facility] of PFIZER VACCINE 00:00:00 [facility] SARS-COV-2 COVID-19 2021-07-23 Completed Unive [facility]ity of PFIZER VACCINE 00:00:00 [facility] SARS-COV-2 COVID-19 2021-07-23 Completed [facility] of PFIZER VACCINE 00:00:00 [facility] SARS-COV-2 COVID-19 2021-07-23 Completed [facility] of PFIZER VACCINE 00:00:00 [facility] SARS-COV-2 COVID-19 2021-07-23 Completed [facility] of PFIZER VACCINE 00:00:00 [facility] SARS-COV-2 COVID-19 2021-07-23 Completed [facility] of PFIZER VACCINE 00:00:00 [facility] SARS-COV-2 COVID-19 2021-07-23 Completed [facility] PFIZER VACCINE 00:00:00 [facility] SARS-COV-2 COVID-19 2021-07-23 Completed Unive [facility] of PFIZER VACCINE 00:00:00 [facility] SARS-COV-2 COVID-19 2021-07-23 Completed [facility] of PFIZER VACCINE 00:00:00 [facility] SARS-COV-2 COVID-19 2021-07-23 Completed [facility] of PFIZER VACCINE 00:00:00 [facility] SARS-COV-2 COVID-19 2021-07-23 Completed [facility] PFIZER VACCINE 00:00:00 [facility] SARS-COV-2 COVID-19 2021-07-23 Completed [facility] PFIZER VACCINE 00:00:00 [facility] SARS-COV-2 COVID-19 2021-07-23 Completed [facility] PFIZER VACCINE 00:00:00 [facility] SARS-COV-2 COVID-19 2021-07-23 Completed [facility] PFIZER VACCINE 00:00:00 [facility] SARS-COV-2 COVID-19 2021-07-23 Completed [facility] PFIZER VACCINE 00:00:00 [facility] SARS-COV-2 COVID-19 2021-07-23 Completed [facility] PFIZER VACCINE 00:00:00 [facility] SARS-COV-2 COVID-19 2021-07-23 Completed [facility] PFIZER VACCINE 00:00:00 [facility] SARS-COV-2 COVID-19 2021-07-23 Completed [facility] PFIZER VACCINE 00:00:00 [facility] SARS-COV-2 COVID-19 2021-07-23 Completed [facility] PFIZER VACCINE 00:00:00 [facility] SARS-COV-2 COVID-19 2021-07-23 Completed [facility] PFIZER VACCINE 00:00:00 [facility] SARS-COV-2 COVID-19 2021-07-23 Completed [facility] PFIZER VACCINE 00:00:00 [facility] SARS-COV-2 COVID-19 2021-07-23 Completed [facility] PFIZER VACCINE 00:00:00 [facility] SARS-COV-2 COVID-19 2021-07-23 Completed [facility] PFIZER VACCINE 00:00:00 [facility] SARS-COV-2 COVID-19 2021-07-23 Completed [facility] PFIZER VACCINE 00:00:00 [facility] SARS-COV-2 COVID-19 2021-07-23 Completed [facility] PFIZER VACCINE 00:00:00 [facility] SARS-COV-2 COVID-19 2021-07-23 Completed [facility] PFIZER VACCINE 00:00:00 [facility] SARS-COV-2 COVID-19 2021-07-23 Completed [facility] PFIZER VACCINE 00:00:00 [facility] SARS-COV-2 COVID-19 2021-07-23 Completed [facility] PFIZER VACCINE 00:00:00 [facility] SARS-COV-2 COVID-19 2021-07-23 Completed [facility] PFIZER VACCINE 00:00:00 [facility] SARS-COV-2 COVID-19 2021-07-23 Completed [facility] PFIZER VACCINE 00:00:00 [facility] SARS-COV-2 COVID-19 2021-07-23 Completed [facility] PFIZER VACCINE 00:00:00 [facility] SARS-COV-2 COVID-19 2021-07-23 Completed [facility] PFIZER VACCINE 00:00:00 [facility] SARS-COV-2 COVID-19 2021-07-23 Completed [facility] PFIZER VACCINE 00:00:00 [facility] SARS-COV-2 COVID-19 2021-07-23 Completed [facility] PFIZER VACCINE 00:00:00 [facility] SARS-COV-2 COVID-19 2021-07-23 Completed [facility] PFIZER VACCINE 00:00:00 [facility] SARS-COV-2 COVID-19 2021-07-23 Completed [facility] PFIZER VACCINE 00:00:00 [facility] SARS-COV-2 COVID-19 2021-07-23 Completed [facility] PFIZER VACCINE 00:00:00 [facility] SARS-COV-2 COVID-19 2021-07-23 Completed [facility] PFIZER VACCINE 00:00:00 [facility] SARS-COV-2 COVID-19 2021-07-23 Completed [facility] PFIZER VACCINE 00:00:00 [facility] SARS-COV-2 COVID-19 2021-07-23 Completed [facility] PFIZER VACCINE 00:00:00 [facility] SARS-COV-2 COVID-19 2021-07-23 Completed [facility] PFIZER VACCINE 00:00:00 [facility] SARS-COV-2 COVID-19 2021-07-23 Completed [facility] PFIZER VACCINE 00:00:00 [facility] SARS-COV-2 COVID-19 2021-07-23 Completed [facility] PFIZER VACCINE 00:00:00 [facility] SARS-COV-2 COVID-19 2021-07-23 Completed [facility] PFIZER VACCINE 00:00:00 [facility] SARS-COV-2 COVID-19 2021-07-23 Completed [facility] PFIZER VACCINE 00:00:00 [facility] SARS-COV-2 COVID-19 2021-07-23 Completed [facility] PFIZER VACCINE 00:00:00 [facility] SARS-COV-2 COVID-19 2021-07-23 Completed [facility] PFIZER VACCINE 00:00:00 [facility] SARS-COV-2 COVID-19 2021-07-23 Completed [facility] PFIZER VACCINE 00:00:00 [facility] SARS-COV-2 COVID-19 2021-07-23 Completed [facility] PFIZER VACCINE 00:00:00 [facility] SARS-COV-2 COVID-19 2021-07-23 Completed [facility] PFIZER VACCINE 00:00:00 [facility] SARS-COV-2 COVID-19 2021-07-23 Completed [facility] PFIZER VACCINE 00:00:00 [facility] SARS-COV-2 COVID-19 2021-07-23 Completed [facility] PFIZER VACCINE 00:00:00 [facility] SARS-COV-2 COVID-19 2021-07-23 Completed [facility] PFIZER VACCINE 00:00:00 [facility] SARS-COV-2 COVID-19 2021-07-23 Completed [facility] PFIZER VACCINE 00:00:00 [facility] SARS-COV-2 COVID-19 2021-07-23 Completed [facility] PFIZER VACCINE 00:00:00 [facility] SARS-COV-2 COVID-19 2021-07-23 Completed [facility] PFIZER VACCINE 00:00:00 [facility] SARS-COV-2 COVID-19 2021-07-23 Completed [facility] PFIZER VACCINE 00:00:00 [facility] SARS-COV-2 COVID-19 2021-07-23 Completed [facility] PFIZER VACCINE 00:00:00 [facility] SARS-COV-2 COVID-19 2021-07-23 Completed [facility] PFIZER VACCINE 00:00:00 [facility] SARS-COV-2 COVID-19 2021-07-23 Completed [facility] PFIZER VACCINE 00:00:00 [facility] SARS-COV-2 COVID-19 2021-07-23 Completed [facility] PFIZER VACCINE 00:00:00 [facility] SARS-COV-2 COVID-19 2021-07-23 Completed [facility] PFIZER VACCINE 00:00:00 [facility] SARS-COV-2 COVID-19 2021-07-23 Completed [facility] PFIZER VACCINE 00:00:00 [facility] SARS-COV-2 COVID-19 2021-07-23 Completed [facility] PFIZER VACCINE 00:00:00 [facility] SARS-COV-2 COVID-19 2021-07-23 Completed [facility] PFIZER VACCINE 00:00:00 [facility] SARS-COV-2 COVID-19 2021-07-23 Completed [facility] PFIZER VACCINE 00:00:00 [facility] SARS-COV-2 COVID-19 2021-07-23 Completed [facility] PFIZER VACCINE 00:00:00 [facility] SARS-COV-2 COVID-19 2021-07-23 Completed [facility] PFIZER VACCINE 00:00:00 [facility] SARS-COV-2 COVID-19 2021-07-23 Completed [facility] PFIZER VACCINE 00:00:00 [facility] SARS-COV-2 COVID-19 2021-07-23 Completed [facility] PFIZER VACCINE 00:00:00 [facility] SARS-COV-2 COVID-19 2021-07-23 Completed [facility] PFIZER VACCINE 00:00:00 [facility] SARS-COV-2 COVID-19 2021-07-23 Completed [facility] PFIZER VACCINE 00:00:00 [facility] SARS-COV-2 COVID-19 2021-07-23 Completed [facility] PFIZER VACCINE 00:00:00 [facility] SARS-COV-2 COVID-19 2021-07-23 Completed [facility] [...] y of Vaccine (3+ yrs) 00:00:00 [facility] Influenza Virus 2021-05-27 Completed Universit [...] y of Vaccine (3+ yrs) 00:00:00 [facility] Influenza Virus 2021-05-27 Completed [facility] Vaccine (3+ yrs) 00:00:00 [facility] Influenza Virus 2021-05-27 Completed [facility] Vaccine (3+ yrs) 00:00:[address] [facility] Influenza Virus 2021-05-27 Completed [facility] Vaccine (3+ yrs) 00:00:00 [facility] Influenza Virus 2021-05-27 Completed [facility] Vaccine (3+ yrs) 00:00:[address] [facility] Influenza Virus 2021-05-27 Completed [facility] Vaccine (3+ yrs) 00:00:00 [facility] Influenza Virus 2021-05-27 Completed Universit [...] y of Vaccine (3+ yrs) 00:00:00 [facility] Influenza Virus 2021-05-27 Completed [facility] Vaccine (3+ yrs) 00:00:00 [facility] Influenza Virus 2021-05-27 Completed [facility] Vaccine (3+ yrs) 00:00:[address] [facility] Influenza Virus 2021-05-27 Completed [facility] Vaccine (3+ yrs) 00:00:[address] [facility] Influenza Virus 2021-05-27 Completed [facility] Vaccine (3+ yrs) 00:00:00 [facility] Influenza Virus 2021-05-27 Completed [facility] Vaccine (3+ yrs) 00:00:[address] [facility] Influenza Virus 2021-05-27 Completed [facility] Vaccine (3+ yrs) 00:00:00 [facility] Influenza Virus 2021-05-27 Completed [facility] Vaccine (3+ yrs) 00:00:[address] [facility] Influenza Virus 2021-05-27 Completed [facility] Vaccine (3+ yrs) 00:00:00 [facility] Influenza Virus 2021-05-27 Completed Universit [...] y of Vaccine (3+ yrs) 00:00:00 [facility] Influenza Virus 2021-05-27 Completed [facility] Vaccine (3+ yrs) 00:00:[address] [facility] Influenza Virus 2021-05-27 Completed [facility] Vaccine (3+ yrs) 00:00:[address] [facility] Influenza Virus 2021-05-27 Completed [facility] Vaccine (3+ yrs) 00:00:00 [facility] Influenza Virus 2021-05-27 Completed [facility] Vaccine (3+ yrs) 00:00:00 [facility] Influenza Virus 2021-05-27 Completed [facility] Vaccine (3+ yrs) 00:00:[address] [facility] Influenza Virus 2021-05-27 Completed [facility] Vaccine (3+ yrs) 00:00:00 [facility] Influenza Virus 2021-05-27 Completed [facility] Vaccine (3+ yrs) 00:00:[address] [facility] Influenza Virus 2021-05-27 Completed [facility] Vaccine (3+ yrs) 00:00:00 [facility] Influenza Virus 2021-05-27 Completed Universit [...] y of Vaccine (3+ yrs) 00:00:00 [facility] Influenza Virus 2021-05-27 Completed Universit [...] y of Vaccine (3+ yrs) 00:00:00 [facility] Influenza Virus 2021-05-27 Completed [facility] Vaccine (3+ yrs) 00:00:[address] [facility] Influenza Virus 2021-05-27 Completed [facility] Vaccine (3+ yrs) 00:00:00 [facility] Influenza Virus 2021-05-27 Completed Universit [...] y of Vaccine (3+ yrs) 00:00:00 [facility] Influenza Virus 2021-05-27 Completed [facility] Vaccine (3+ yrs) 00:00:00 [facility] Influenza Virus 2021-05-27 Completed [facility] Vaccine (3+ yrs) 00:00:[address] [facility] Influenza Virus 2021-05-27 Completed [facility] Vaccine (3+ yrs) 00:00:00 [facility] Influenza Virus 2021-05-27 Completed [facility] Vaccine (3+ yrs) 00:00:[address] [facility] Influenza Virus 2021-05-27 Completed [facility] Vaccine (3+ yrs) 00:00:00 [facility] Influenza Virus 2021-05-27 Completed Universit [...] y of Vaccine (3+ yrs) 00:00:00 [facility] Influenza Virus 2021-05-27 Completed [facility] Vaccine (3+ yrs) 00:00:00 [facility] Influenza Virus 2021-05-27 Completed [facility] Vaccine (3+ yrs) 00:00:00 [facility] Influenza Virus 2021-05-27 Completed [facility] Vaccine (3+ yrs) 00:00:[address] [facility] Influenza Virus 2021-05-27 Completed [facility] Vaccine (3+ yrs) 00:00:00 [facility] Influenza Virus 2021-05-27 Completed [facility] Vaccine (3+ yrs) 00:00:00 [facility] Influenza Virus 2021-05-27 Completed [facility] Vaccine (3+ yrs) 00:00:00 [facility] Influenza Virus 2021-05-27 Completed [facility] [...] [facility] PFIZER VACCINE 00:00:00 [facility] SARS-COV-2 COVID-19 2020-12-13 Completed [facility] PFIZER VACCINE 00:00:00 [facility] SARS-COV-2 COVID-19 2020-12-13 Completed [facility] PFIZER VACCINE 00:00:00 [facility] SARS-COV-2 COVID-19 2020-12-13 Completed [facility] PFIZER VACCINE 00:00:00 [facility] SARS-COV-2 COVID-19 2020-12-13 Completed [facility] PFIZER VACCINE 00:00:00 [facility] SARS-COV-2 COVID-19 2020-12-13 Completed [facility] PFIZER VACCINE 00:00:00 [facility] SARS-COV-2 COVID-19 2020-12-13 Completed [facility] PFIZER VACCINE 00:00:00 [facility] SARS-COV-2 COVID-19 2020-12-13 Completed [facility] PFIZER VACCINE 00:00:00 [facility] SARS-COV-2 COVID-19 2020-12-13 Completed [...] [facility] PFIZER VACCINE 00:00:00 [facility] SARS-COV-2 COVID-19 2020-12-13 Completed [facility] PFIZER VACCINE 00:00:00 [facility] SARS-COV-2 COVID-19 2020-12-13 Completed [facility] PFIZER VACCINE 00:00:00 [facility] SARS-COV-2 COVID-19 2020-12-13 Completed [facility] PFIZER VACCINE 00:00:00 [facility] SARS-COV-2 COVID-19 2020-12-13 Completed [facility] PFIZER VACCINE 00:00:00 [facility] SARS-COV-2 COVID-19 2020-12-13 Completed [facility] PFIZER VACCINE 00:00:00 [facility] SARS-COV-2 COVID-19 2020-12-13 Completed [facility] PFIZER VACCINE 00:00:00 [facility] SARS-COV-2 COVID-19 2020-12-13 Completed [facility] PFIZER VACCINE 00:00:00 [facility] SARS-COV-2 COVID-19 2020-12-13 Completed [facility] PFIZER VACCINE 00:00:00 [facility] SARS-COV-2 COVID-19 2020-12-13 Completed [facility] PFIZER VACCINE 00:00:00 [facility] SARS-COV-2 COVID-19 2020-12-13 Completed [facility] PFIZER VACCINE 00:00:00 [facility] SARS-COV-2 COVID-19 2020-12-13 Completed [facility] PFIZER VACCINE 00:00:00 [facility] SARS-COV-2 COVID-19 2020-12-13 Completed [facility] PFIZER VACCINE 00:00:00 [facility] SARS-COV-2 COVID-19 2020-12-13 Completed [facility] PFIZER VACCINE 00:00:00 [facility] SARS-COV-2 COVID-19 2020-12-13 Completed [facility] PFIZER VACCINE 00:00:00 [facility] SARS-COV-2 COVID-19 2020-12-13 Completed [facility] PFIZER VACCINE 00:00:00 [facility] SARS-COV-2 COVID-19 2020-12-13 Completed [facility] PFIZER VACCINE 00:00:00 [facility] SARS-COV-2 COVID-19 2020-12-13 Completed [facility] PFIZER VACCINE 00:00:00 [facility] SARS-COV-2 COVID-19 2020-12-13 Completed [facility] PFIZER VACCINE 00:00:00 [facility] SARS-COV-2 COVID-19 2020-12-13 Completed [facility] PFIZER VACCINE 00:00:00 [facility] SARS-COV-2 COVID-19 2020-12-13 Completed [facility] PFIZER VACCINE 00:00:00 [facility] SARS-COV-2 COVID-19 2020-12-13 Completed [facility] PFIZER VACCINE 00:00:00 [facility] SARS-COV-2 COVID-19 2020-12-13 Completed [facility] PFIZER VACCINE 00:00:00 [facility] SARS-COV-2 COVID-19 2020-12-13 Completed [facility] PFIZER VACCINE 00:00:00 [facility] SARS-COV-2 COVID-19 2020-12-13 Completed [facility] PFIZER VACCINE 00:00:00 [facility] SARS-COV-2 COVID-19 2020-12-13 Completed [facility] PFIZER VACCINE 00:00:00 [facility] SARS-COV-2 COVID-19 2020-12-13 Completed [facility] PFIZER VACCINE 00:00:00 [facility] SARS-COV-2 COVID-19 2020-12-13 Completed [facility] PFIZER VACCINE 00:00:00 [facility] SARS-COV-2 COVID-19 2020-12-13 Completed [facility] PFIZER VACCINE 00:00:00 [facility] SARS-COV-2 COVID-19 2020-12-13 Completed [facility] PFIZER VACCINE 00:00:00 [facility] SARS-COV-2 COVID-19 2020-12-13 Completed [facility] PFIZER VACCINE 00:00:00 [facility] SARS-COV-2 COVID-19 2020-12-13 Completed [facility] PFIZER VACCINE 00:00:00 [facility] SARS-COV-2 COVID-19 2020-12-13 Completed [facility] PFIZER VACCINE 00:00:00 [facility] SARS-COV-2 COVID-19 2020-12-13 Completed [facility] PFIZER VACCINE 00:00:00 [facility] SARS-COV-2 COVID-19 2020-12-13 Completed [facility] PFIZER VACCINE 00:00:00 [facility] SARS-COV-2 COVID-19 2020-12-13 Completed [facility] PFIZER VACCINE 00:00:00 [facility] SARS-COV-2 COVID-19 2020-12-13 Completed [facility] PFIZER VACCINE 00:00:00 [facility] SARS-COV-2 COVID-19 2020-12-13 Completed [facility] PFIZER VACCINE 00:00:00 [facility] SARS-COV-2 COVID-19 2020-12-13 Completed [facility] PFIZER VACCINE 00:00:00 [facility] SARS-COV-2 COVID-19 2020-12-13 Completed [facility] PFIZER VACCINE 00:00:00 [facility] SARS-COV-2 COVID-19 2020-12-13 Completed [facility] PFIZER VACCINE 00:00:00 [facility] SARS-COV-2 COVID-19 2020-12-13 Completed [facility] PFIZER VACCINE 00:00:00 [facility] SARS-COV-2 COVID-19 2020-12-13 Completed [facility] PFIZER VACCINE 00:00:00 [facility] SARS-COV-2 COVID-19 2020-12-13 Completed [facility] PFIZER VACCINE 00:00:00 [facility] SARS-COV-2 COVID-19 2020-12-13 Completed [facility] PFIZER VACCINE 00:00:00 [facility] SARS-COV-2 COVID-19 2020-12-13 Completed [facility] PFIZER VACCINE 00:00:00 [facility] SARS-COV-2 COVID-19 2020-12-13 Completed [facility] PFIZER VACCINE 00:00:00 [facility] SARS-COV-2 COVID-19 2020-12-13 Completed [facility] PFIZER VACCINE 00:00:00 [facility] SARS-COV-2 COVID-19 2020-12-13 Completed [facility] PFIZER VACCINE 00:00:00 [facility] SARS-COV-2 COVID-19 2020-12-13 Completed [facility] PFIZER VACCINE 00:00:00 [facility] SARS-COV-2 COVID-19 2020-12-13 Completed [facility] PFIZER VACCINE 00:00:00 [facility] SARS-COV-2 COVID-19 2020-12-13 Completed [facility] PFIZER VACCINE 00:00:00 [facility] SARS-COV-2 COVID-19 2020-12-13 Completed [facility] PFIZER VACCINE 00:00:00 [facility] SARS-COV-2 COVID-19 2020-12-13 Completed [facility] PFIZER VACCINE 00:00:00 [facility] SARS-COV-2 COVID-19 2020-12-13 Completed [facility] PFIZER VACCINE 00:00:00 [facility] SARS-COV-2 COVID-19 2020-12-13 Completed [facility] of PFIZER VACCINE 00:00:00 [facility] SARS-COV-2 COVID-19 2020-12-13 Completed [facility] PFIZER VACCINE 00:00:00 [facility] SARS-COV-2 COVID-19 2020-12-13 Completed [facility] of PFIZER VACCINE 00:00:00 [facility] SARS-COV-2 COVID-19 2020-12-13 Completed [facility] PFIZER VACCINE 00:00:00 [facility] SARS-COV-2 COVID-19 2020-12-13 Completed [facility] of PFIZER VACCINE 00:00:00 [facility] SARS-COV-2 COVID-19 2020-12-13 Completed [facility] of PFIZER VACCINE 00:00:00 [facility] SARS-COV-2 COVID-19 2020-12-13 Completed [facility] PFIZER VACCINE 00:00:00 [facility] SARS-COV-2 COVID-19 2020-12-13 Completed [facility] PFIZER VACCINE 00:00:00 [facility] SARS-COV-2 COVID-19 2020-12-13 Completed [facility] PFIZER VACCINE 00:00:00 [facility] SARS-COV-2 COVID-19 2020-12-13 Completed [facility] PFIZER VACCINE 00:00:00 [facility] SARS-COV-2 COVID-19 2020-12-13 Completed [facility] PFIZER VACCINE 00:00:00 [facility] SARS-COV-2 COVID-19 2020-12-13 Completed [facility] PFIZER VACCINE 00:00:00 [facility] SARS-COV-2 COVID-19 2020-12-13 Completed [facility] PFIZER VACCINE 00:00:00 [facility] SARS-COV-2 COVID-19 2020-12-13 Completed [facility] PFIZER VACCINE 00:00:00 [facility] SARS-COV-2 COVID-19 2020-12-13 Completed [facility] PFIZER VACCINE 00:00:00 [facility] SARS-COV-2 COVID-19 2020-12-13 Completed [facility] PFIZER VACCINE 00:00:00 [facility] SARS-COV-2 COVID-19 2020-12-13 Completed [facility] PFIZER VACCINE 00:00:00 [facility] SARS-COV-2 COVID-19 2020-12-13 Completed [facility] PFIZER VACCINE 00:00:00 [facility] SARS-COV-2 COVID-19 2020-12-13 Completed [facility] PFIZER VACCINE 00:00:00 [facility] SARS-COV-2 COVID-19 2020-12-13 Completed [facility] PFIZER VACCINE 00:00:00 [facility] SARS-COV-2 COVID-19 2020-12-13 Completed [facility] PFIZER VACCINE 00:00:00 [facility] SARS-COV-2 COVID-19 2020-12-13 Completed [facility] PFIZER VACCINE 00:00:00 [facility] SARS-COV-2 COVID-19 2020-12-13 Completed [facility] PFIZER VACCINE 00:00:00 [facility] SARS-COV-2 COVID-19 2020-12-13 Completed [facility] PFIZER VACCINE 00:00:00 [facility] SARS-COV-2 COVID-19 2020-12-13 Completed [facility] PFIZER VACCINE 00:00:00 [facility] SARS-COV-2 COVID-19 2020-12-13 Completed [facility] of PFIZER VACCINE 00:00:00 [facility] SARS-COV-2 COVID-19 2020-12-13 Completed [facility] of PFIZER VACCINE 00:00:00 [facility] SARS-COV-2 COVID-19 2020-12-13 Completed [facility] of PFIZER VACCINE 00:00:00 [facility] SARS-COV-2 COVID-19 2020-12-13 Completed [facility] PFIZER VACCINE 00:00:00 [facility] SARS-COV-2 COVID-19 2020-12-13 Completed [facility] of PFIZER VACCINE 00:00:00 [facility] SARS-COV-2 COVID-19 2020-12-13 Completed [facility] of PFIZER VACCINE 00:00:00 [facility] SARS-COV-2 COVID-19 2020-12-13 Completed [facility] of PFIZER VACCINE 00:00:00 [facility] SARS-COV-2 COVID-19 2020-12-13 Completed [facility] of PFIZER VACCINE 00:00:00 [facility] SARS-COV-2 COVID-19 2020-12-13 Completed [facility] of PFIZER VACCINE 00:00:00 [facility] SARS-COV-2 COVID-19 2020-12-13 Completed [facility] of PFIZER VACCINE 00:00:00 [facility] SARS-COV-2 COVID-19 2020-12-13 Completed [facility] of PFIZER VACCINE 00:00:00 [facility] SARS-COV-2 COVID-19 2020-12-13 Completed [facility] of PFIZER VACCINE 00:00:00 [facility] SARS-COV-2 COVID-19 2020-12-13 Completed [facility] of PFIZER VACCINE 00:00:00 [facility] SARS-COV-2 COVID-19 2020-12-13 Completed [facility] PFIZER VACCINE 00:00:00 [facility] SARS-COV-2 COVID-19 2020-12-13 Completed [facility] PFIZER VACCINE 00:00:00 [facility] SARS-COV-2 COVID-19 2020-12-13 Completed [facility] PFIZER VACCINE 00:00:00 [facility] SARS-COV-2 COVID-19 2020-12-13 Completed [facility] of PFIZER VACCINE 00:00:00 [facility] SARS-COV-2 COVID-19 2020-12-13 Completed [facility] PFIZER VACCINE 00:00:00 [facility] SARS-COV-2 COVID-19 2020-12-13 Completed [facility] PFIZER VACCINE 00:00:00 [facility] SARS-COV-2 COVID-19 2020-12-13 Completed [facility] PFIZER VACCINE 00:00:00 [facility] SARS-COV-2 COVID-19 2020-12-13 Completed [facility] PFIZER VACCINE 00:00:00 [facility] SARS-COV-2 COVID-19 2020-12-13 Completed [facility] PFIZER VACCINE 00:00:00 [facility] SARS-COV-2 COVID-19 2020-12-13 Completed [facility] PFIZER VACCINE 00:00:00 [facility] SARS-COV-2 COVID-19 2020-12-13 Completed [facility] PFIZER VACCINE 00:00:00 [facility] SARS-COV-2 COVID-19 2020-12-13 Completed [facility] PFIZER VACCINE 00:00:00 [facility] SARS-COV-2 COVID-19 2020-12-13 Completed [facility] PFIZER VACCINE 00:00:00 [facility] SARS-COV-2 COVID-19 2020-12-13 Completed [facility] PFIZER VACCINE 00:00:00 [facility] SARS-COV-2 COVID-19 2020-11-22 Completed [facility] PFIZER VACCINE 00:00:00 [facility] SARS-COV-2 COVID-19 2020-11-22 Completed [facility] of PFIZER VACCINE 00:00:00 [facility] SARS-COV-2 COVID-19 2020-11-22 Completed [facility] of PFIZER VACCINE 00:00:00 [facility] SARS-COV-2 COVID-19 2020-11-22 Completed [facility] of PFIZER VACCINE 00:00:00 [facility] SARS-COV-2 COVID-19 2020-11-22 Completed [facility] PFIZER VACCINE 00:00:00 [facility] SARS-COV-2 COVID-19 2020-11-22 Completed [facility] PFIZER VACCINE 00:00:00 [facility] SARS-COV-2 COVID-19 2020-11-22 Completed [facility] PFIZER VACCINE 00:00:00 [facility] SARS-COV-2 COVID-19 2020-11-22 Completed [facility] PFIZER VACCINE 00:00:00 [facility] SARS-COV-2 COVID-19 2020-11-22 Completed [facility] PFIZER VACCINE 00:00:00 [facility] SARS-COV-2 COVID-19 2020-11-22 Completed [facility] PFIZER VACCINE 00:00:00 [facility] SARS-COV-2 COVID-19 2020-11-22 Completed [facility] PFIZER VACCINE 00:00:00 [facility] SARS-COV-2 COVID-19 2020-11-22 Completed [facility] PFIZER VACCINE 00:00:00 [facility] SARS-COV-2 COVID-19 2020-11-22 Completed [facility] PFIZER VACCINE 00:00:00 [facility] SARS-COV-2 COVID-19 2020-11-22 Completed [facility] PFIZER VACCINE 00:00:00 [facility] SARS-COV-2 COVID-19 2020-11-22 Completed [facility] PFIZER VACCINE 00:00:00 [facility] SARS-COV-2 COVID-19 2020-11-22 Completed [facility] PFIZER VACCINE 00:00:00 [facility] SARS-COV-2 COVID-19 2020-11-22 Completed [facility] of PFIZER VACCINE 00:00:00 [facility] SARS-COV-2 COVID-19 2020-11-22 Completed [facility] PFIZER VACCINE 00:00:00 [facility] SARS-COV-2 COVID-19 2020-11-22 Completed [facility] PFIZER VACCINE 00:00:00 [facility] SARS-COV-2 COVID-19 2020-11-22 Completed [facility] PFIZER VACCINE 00:00:00 [facility] SARS-COV-2 COVID-19 2020-11-22 Completed [facility] PFIZER VACCINE 00:00:00 [facility] SARS-COV-2 COVID-19 2020-11-22 Completed [facility] PFIZER VACCINE 00:00:00 [facility] SARS-COV-2 COVID-19 2020-11-22 Completed [facility] PFIZER VACCINE 00:00:00 [facility] SARS-COV-2 COVID-19 2020-11-22 Completed [facility] PFIZER VACCINE 00:00:00 [facility] SARS-COV-2 COVID-19 2020-11-22 Completed [facility] PFIZER VACCINE 00:00:00 [facility] SARS-COV-2 COVID-19 2020-11-22 Completed [facility] PFIZER VACCINE 00:00:00 [facility] SARS-COV-2 COVID-19 2020-11-22 Completed [facility] PFIZER VACCINE 00:00:00 [facility] SARS-COV-2 COVID-19 2020-11-22 Completed [facility] PFIZER VACCINE 00:00:00 [facility] SARS-COV-2 COVID-19 2020-11-22 Completed [facility] PFIZER VACCINE 00:00:00 [facility] SARS-COV-2 COVID-19 2020-11-22 Completed [facility] PFIZER VACCINE 00:00:00 [facility] SARS-COV-2 COVID-19 2020-11-22 Completed [facility] PFIZER VACCINE 00:00:00 [facility] SARS-COV-2 COVID-19 2020-11-22 Completed [facility] PFIZER VACCINE 00:00:00 [facility] SARS-COV-2 COVID-19 2020-11-22 Completed [facility] PFIZER VACCINE 00:00:00 [facility] SARS-COV-2 COVID-19 2020-11-22 Completed [facility] PFIZER VACCINE 00:00:00 [facility] SARS-COV-2 COVID-19 2020-11-22 Completed [facility] PFIZER VACCINE 00:00:00 [facility] SARS-COV-2 COVID-19 2020-11-22 Completed [facility] PFIZER VACCINE 00:00:00 [facility] SARS-COV-2 COVID-19 2020-11-22 Completed [facility] PFIZER VACCINE 00:00:00 [facility] SARS-COV-2 COVID-19 2020-11-22 Completed [facility] PFIZER VACCINE 00:00:00 [facility] SARS-COV-2 COVID-19 2020-11-22 Completed [facility] PFIZER VACCINE 00:00:00 [facility] SARS-COV-2 COVID-19 2020-11-22 Completed [facility] PFIZER VACCINE 00:00:00 [facility] SARS-COV-2 COVID-19 2020-11-22 Completed [facility] PFIZER VACCINE 00:00:00 [facility] SARS-COV-2 COVID-19 2020-11-22 Completed [facility] PFIZER VACCINE 00:00:00 [facility] SARS-COV-2 COVID-19 2020-11-22 Completed [facility] PFIZER VACCINE 00:00:00 [facility] SARS-COV-2 COVID-19 2020-11-22 Completed [facility] PFIZER VACCINE 00:00:00 [facility] SARS-COV-2 COVID-19 2020-11-22 Completed [facility] PFIZER VACCINE 00:00:00 [facility] SARS-COV-2 COVID-19 2020-11-22 Completed [facility] PFIZER VACCINE 00:00:00 [facility] SARS-COV-2 COVID-19 2020-11-22 Completed [facility] PFIZER VACCINE 00:00:00 [facility] SARS-COV-2 COVID-19 2020-11-22 Completed [facility] PFIZER VACCINE 00:00:00 [facility] SARS-COV-2 COVID-19 2020-11-22 Completed [facility] PFIZER VACCINE 00:00:00 [facility] SARS-COV-2 COVID-19 2020-11-22 Completed [facility] PFIZER VACCINE 00:00:00 [facility] SARS-COV-2 COVID-19 2020-11-22 Completed [facility] PFIZER VACCINE 00:00:00 [facility] SARS-COV-2 COVID-19 2020-11-22 Completed [facility] PFIZER VACCINE 00:00:00 [facility] SARS-COV-2 COVID-19 2020-11-22 Completed [facility] PFIZER VACCINE 00:00:00 [facility] SARS-COV-2 COVID-19 2020-11-22 Completed [facility] PFIZER VACCINE 00:00:00 [facility] SARS-COV-2 COVID-19 2020-11-22 Completed [facility] PFIZER VACCINE 00:00:00 [facility] SARS-COV-2 COVID-19 2020-11-22 Completed [facility] PFIZER VACCINE 00:00:00 [facility] SARS-COV-2 COVID-19 2020-11-22 Completed [facility] PFIZER VACCINE 00:00:00 [facility] SARS-COV-2 COVID-19 2020-11-22 Completed [facility] PFIZER VACCINE 00:00:00 [facility] SARS-COV-2 COVID-19 2020-11-22 Completed [facility] PFIZER VACCINE 00:00:00 [facility] SARS-COV-2 COVID-19 2020-11-22 Completed [facility] PFIZER VACCINE 00:00:00 [facility] SARS-COV-2 COVID-19 2020-11-22 Completed [facility] PFIZER VACCINE 00:00:00 [facility] SARS-COV-2 COVID-19 2020-11-22 Completed [facility] PFIZER VACCINE 00:00:00 [facility] SARS-COV-2 COVID-19 2020-11-22 Completed [facility] PFIZER VACCINE 00:00:00 [facility] SARS-COV-2 COVID-19 2020-11-22 Completed [facility] PFIZER VACCINE 00:00:00 [facility] SARS-COV-2 COVID-19 2020-11-22 Completed [facility] PFIZER VACCINE 00:00:00 [facility] SARS-COV-2 COVID-19 2020-11-22 Completed [facility] PFIZER VACCINE 00:00:00 [facility] SARS-COV-2 COVID-19 2020-11-22 Completed [facility] PFIZER VACCINE 00:00:00 [facility] SARS-COV-2 COVID-19 2020-11-22 Completed [facility] PFIZER VACCINE 00:00:00 [facility] SARS-COV-2 COVID-19 2020-11-22 Completed [facility] PFIZER VACCINE 00:00:00 [facility] SARS-COV-2 COVID-19 2020-11-22 Completed [facility] PFIZER VACCINE 00:00:00 [facility] SARS-COV-2 COVID-19 2020-11-22 Completed [facility] PFIZER VACCINE 00:00:00 [facility] SARS-COV-2 COVID-19 2020-11-22 Completed [facility] PFIZER VACCINE 00:00:00 [facility] SARS-COV-2 COVID-19 2020-11-22 Completed [facility] PFIZER VACCINE 00:00:00 [facility] SARS-COV-2 COVID-19 2020-11-22 Completed [facility] PFIZER VACCINE 00:00:00 [facility] SARS-COV-2 COVID-19 2020-11-22 Completed [facility] PFIZER VACCINE 00:00:00 [facility] SARS-COV-2 COVID-19 2020-11-22 Completed [facility] PFIZER VACCINE 00:00:00 [facility] SARS-COV-2 COVID-19 2020-11-22 Completed [facility] PFIZER VACCINE 00:00:00 [facility] SARS-COV-2 COVID-19 2020-11-22 Completed [facility] PFIZER VACCINE 00:00:00 [facility] SARS-COV-2 COVID-19 2020-11-22 Completed [facility] PFIZER VACCINE 00:00:00 [facility] SARS-COV-2 COVID-19 2020-11-22 Completed [facility] PFIZER VACCINE 00:00:00 [facility] SARS-COV-2 COVID-19 2020-11-22 Completed [facility] PFIZER VACCINE 00:00:00 [facility] SARS-COV-2 COVID-19 2020-11-22 Completed [facility] of PFIZER VACCINE 00:00:00 [facility] SARS-COV-2 COVID-19 2020-11-22 Completed [facility] PFIZER VACCINE 00:00:00 [facility] SARS-COV-2 COVID-19 2020-11-22 Completed [facility] PFIZER VACCINE 00:00:00 [facility] SARS-COV-2 COVID-19 2020-11-22 Completed [facility] PFIZER VACCINE 00:00:00 [facility] SARS-COV-2 COVID-19 2020-11-22 Completed [facility] PFIZER VACCINE 00:00:00 [facility] SARS-COV-2 COVID-19 2020-11-22 Completed [facility] PFIZER VACCINE 00:00:00 [facility] SARS-COV-2 COVID-19 2020-11-22 Completed [facility] PFIZER VACCINE 00:00:00 [facility] SARS-COV-2 COVID-19 2020-11-22 Completed [facility] PFIZER VACCINE 00:00:00 [facility] SARS-COV-2 COVID-19 2020-11-22 Completed [facility] PFIZER VACCINE 00:00:00 [facility] SARS-COV-2 COVID-19 2020-11-22 Completed [facility] PFIZER VACCINE 00:00:00 [facility] SARS-COV-2 COVID-19 2020-11-22 Completed [facility] of PFIZER VACCINE 00:00:00 [facility] SARS-COV-2 COVID-19 2020-11-22 Completed [facility] PFIZER VACCINE 00:00:00 [facility] SARS-COV-2 COVID-19 2020-11-22 Completed [facility] PFIZER VACCINE 00:00:00 [facility] SARS-COV-2 COVID-19 2020-11-22 Completed [facility] PFIZER VACCINE 00:00:00 [facility] SARS-COV-2 COVID-19 2020-11-22 Completed [facility] PFIZER VACCINE 00:00:00 [facility] SARS-COV-2 COVID-19 2020-11-22 Completed [facility] of PFIZER VACCINE 00:00:00 [facility] SARS-COV-2 COVID-19 2020-11-22 Completed [facility] of PFIZER VACCINE 00:00:00 [facility] SARS-COV-2 COVID-19 2020-11-22 Completed [facility] of PFIZER VACCINE 00:00:00 [facility] SARS-COV-2 COVID-19 2020-11-22 Completed [facility] of PFIZER VACCINE 00:00:00 [facility] SARS-COV-2 COVID-19 2020-11-22 Completed [facility] of PFIZER VACCINE 00:00:00 [facility] SARS-COV-2 COVID-19 2020-11-22 Completed [facility] of PFIZER VACCINE 00:00:00 [facility] SARS-COV-2 COVID-19 2020-11-22 Completed [facility] of PFIZER VACCINE 00:00:00 [facility] SARS-COV-2 COVID-19 2020-11-22 Completed [facility] of PFIZER VACCINE 00:00:00 [facility] SARS-COV-2 COVID-19 2020-11-22 Completed [facility] of PFIZER VACCINE 00:00:00 [facility] SARS-COV-2 COVID-19 2020-11-22 Completed [facility] of PFIZER VACCINE 00:00:00 [facility] SARS-COV-2 COVID-19 2020-11-22 Completed [facility] of PFIZER VACCINE 00:00:00 [facility] SARS-COV-2 COVID-19 2020-11-22 Completed [facility] of PFIZER VACCINE 00:00:00 [facility] SARS-COV-2 COVID-19 2020-11-22 Completed [facility] PFIZER VACCINE 00:00:00 [facility] SARS-COV-2 COVID-19 2020-11-22 Completed [facility] of PFIZER VACCINE 00:00:00 [facility] SARS-COV-2 COVID-19 2020-11-22 Completed [facility] of PFIZER VACCINE 00:00:00 [facility] SARS-COV-2 COVID-19 2020-11-22 Completed [facility] PFIZER VACCINE 00:00:00 [facility] SARS-COV-2 COVID-19 2020-11-22 Completed [facility] PFIZER VACCINE 00:00:00 [facility] SARS-COV-2 COVID-19 2020-11-22 Completed [facility] of PFIZER VACCINE 00:00:00 [facility] SARS-COV-2 COVID-19 2020-11-22 Completed [facility] PFIZER VACCINE 00:00:00 [facility] SARS-COV-2 COVID-19 2020-11-22 Completed [facility] of PFIZER VACCINE 00:00:00 [facility] SARS-COV-2 COVID-19 2020-11-22 Completed [facility] of PFIZER VACCINE 00:00:00 [facility] SARS-COV-2 COVID-19 2020-11-22 Completed [facility] of PFIZER VACCINE 00:00:00 [facility] SARS-COV-2 COVID-19 2020-11-22 Completed [facility] PFIZER VACCINE 00:00:00 [facility] Influenza Virus 2020-05-27 Completed [facility] [...] [facility] Vaccine Recomb Quad 00:00:00 [facility], Preserv and ABX Branc h Free 18-64 YRS Influenza Virus 2020-05-27 Completed [facility] Vaccine Recomb Quad 00:00:00 [facility], Preserv and ABX Branc h Free 18-64 YRS Influenza Virus 2020-05-27 Completed [facility] of Vaccine Recomb Quad 00:00:00 [facility], Preserv and ABX Branc h Free 18-64 YRS Pneumococcal 2019-08-10 Completed [facility] o f Polysaccharide, 00:00:00 [facility] PPSV23 (PNEUMOVAX) Branch TDAP (ADACEL) VACCINE 2019-08-10 Completed Uni versity of 00:00:00 [facility] TDAP 2019-08-10 Completed University of 00:00:00 [facility] Pneumococcal 2019-08-10 Completed [facility] o f Polysaccharide, 00:00:00 [facility] PPSV23 (PNEUMOVAX) [facility] TDAP (ADACEL) VACCINE 2019-08-10 Completed [facility] vers[facility] of 00:00:00 [facility] TDAP 2019-08-10 Completed [facility] of 00:00:00 [facility] Pneumococcal 2019-08-10 Completed [facility] o f Polysaccharide, 00:00:00 [facility] PPSV23 (PNEUMOVAX) [facility] TDAP (ADACEL) VACCINE 2019-08-10 Completed [facility] 00:00:00 [facility] TDAP 2019-08-10 Completed [facility] of 00:00:00 [facility] Pneumococcal 2019-08-10 Completed [facility] o f Polysaccharide, 00:00:00 [facility] PPSV23 (PNEUMOVAX) [facility] TDAP (ADACEL) VACCINE 2019-08-10 Completed [facility] 00:00:00 [facility] TDAP 2019-08-10 Completed [facility] of 00:00:00 [facility] Pneumococcal 2019-08-10 Completed [facility] o f Polysaccharide, 00:00:00 [place] [facility] PPSV23 (PNEUMOVAX) Branch TDAP (ADACEL) VACCINE 2019-08-10 Completed [facility] 00:00:00 [facility] TDAP 2019-08-10 Completed [facility] of 00:00:00 [facility] Pneumococcal 2019-08-10 Completed [facility] Polysaccharide, 00:00:00 [place] [facility] PPSV23 (PNEUMOVAX) [facility] TDAP (ADACEL) VACCINE 2019-08-10 Completed [facility] 00:00:00 [facility] TDAP 2019-08-10 Completed [facility] of 00:00:00 [facility] Pneumococcal 2019-08-10 Completed [facility] f Polysaccharide, 00:00:00 [place] [facility] PPSV23 (PNEUMOVAX) [facility] TDAP (ADACEL) VACCINE 2019-08-10 Completed [facility] 00:00:00 [facility] TDAP 2019-08-10 Completed [facility] 00:00:00 [facility] Pneumococcal 2019-08-10 Completed [facility] o f Polysaccharide, 00:00:00 [place] [facility] PPSV23 (PNEUMOVAX) [facility] TDAP (ADACEL) VACCINE 2019-08-10 Completed [facility] of 00:00:00 [facility] TDAP 2019-08-10 Completed [facility] of 00:00:00 [facility] Pneumococcal 2019-08-10 Completed [facility] o f Polysaccharide, 00:00:00 [facility] PPSV23 (PNEUMOVAX) [facility] TDAP (ADACEL) VACCINE 2019-08-10 Completed [facility] 00:00:00 [facility] TDAP 2019-08-10 Completed [facility] of 00:00:00 [facility] Pneumococcal 2019-08-10 Completed [facility] o f Polysaccharide, 00:00:00 [facility] PPSV23 (PNEUMOVAX) [facility] TDAP (ADACEL) VACCINE 2019-08-10 Completed [facility] 00:00:00 [facility] TDAP 2019-08-10 Completed [facility] of 00:00:00 [facility] Pneumococcal 2019-08-10 Completed [facility] o f Polysaccharide, 00:00:00 [place] [facility] PPSV23 (PNEUMOVAX) [facility] TDAP (ADACEL) VACCINE 2019-08-10 Completed [facility] 00:00:00 [facility] TDAP 2019-08-10 Completed [facility] of 00:00:00 [facility] Pneumococcal 2019-08-10 Completed [facility] o f Polysaccharide, 00:00:00 [place] [facility] PPSV23 (PNEUMOVAX) [facility] TDAP (ADACEL) VACCINE 2019-08-10 Completed [facility] 00:00:00 [facility] TDAP 2019-08-10 Completed [facility] of 00:00:00 [facility] Pneumococcal 2019-08-10 Completed [facility] o f Polysaccharide, 00:00:00 [place] [facility] PPSV23 (PNEUMOVAX) [facility] TDAP (ADACEL) VACCINE 2019-08-10 Completed [facility] 00:00:00 [facility] TDAP 2019-08-10 Completed [facility] of 00:00:00 [facility] Pneumococcal 2019-08-10 Completed [facility] o f Polysaccharide, 00:00:00 [place] [facility] PPSV23 (PNEUMOVAX) [facility] TDAP (ADACEL) VACCINE 2019-08-10 Completed [facility] 00:00:00 [facility] TDAP 2019-08-10 Completed [facility] of 00:00:00 [facility] Pneumococcal 2019-08-10 Completed [facility] o f Polysaccharide, 00:00:00 [facility] PPSV23 (PNEUMOVAX) [facility] TDAP (ADACEL) VACCINE 2019-08-10 Completed [facility] 00:00:00 [facility] TDAP 2019-08-10 Completed [facility] of 00:00:00 [facility] Pneumococcal 2019-08-10 Completed [facility] o f Polysaccharide, 00:00:00 [facility] PPSV23 (PNEUMOVAX) Branch TDAP (ADACEL) VACCINE 2019-08-10 Completed [facility] 00:00:00 [facility] TDAP 2019-08-10 Completed [facility] of 00:00:00 [facility] Pneumococcal 2019-08-10 Completed [facility] o f Polysaccharide, 00:00:00 [place] [facility] PPSV23 (PNEUMOVAX) [facility] TDAP (ADACEL) VACCINE 2019-08-10 Completed [facility] 00:00:00 [facility] TDAP 2019-08-10 Completed [facility] of 00:00:00 [facility] Pneumococcal 2019-08-10 Completed [facility] o f Polysaccharide, 00:00:00 [place] [facility] PPSV23 (PNEUMOVAX) [facility] TDAP (ADACEL) VACCINE 2019-08-10 Completed [facility] 00:00:00 [facility] TDAP 2019-08-10 Completed [facility] of 00:00:00 [facility] Pneumococcal 2019-08-10 Completed [facility] o f Polysaccharide, 00:00:00 [place] [facility] PPSV23 (PNEUMOVAX) [facility] TDAP (ADACEL) VACCINE 2019-08-10 Completed [facility] 00:00:00 [facility] TDAP 2019-08-10 Completed [facility] 00:00:00 [facility] Pneumococcal 2019-08-10 Completed [facility] o f Polysaccharide, 00:00:00 [place] [facility] PPSV23 (PNEUMOVAX) [facility] TDAP (ADACEL) VACCINE 2019-08-10 Completed [facility] 00:00:00 [facility] TDAP 2019-08-10 Completed [facility] 00:00:00 [facility] Pneumococcal 2019-08-10 Completed [facility] f Polysaccharide, 00:00:00 [place] [facility] PPSV23 (PNEUMOVAX) [facility] TDAP (ADACEL) VACCINE 2019-08-10 Completed [facility] 00:00:00 [facility] TDAP 2019-08-10 Completed [facility] 00:00:00 [facility] Pneumococcal 2019-08-10 Completed [facility] f Polysaccharide, 00:00:00 [place] [facility] PPSV23 (PNEUMOVAX) Branch TDAP (ADACEL) VACCINE 2019-08-10 Completed [facility] 00:00:00 [facility] TDAP 2019-08-10 Completed [facility] 00:00:00 [facility] Pneumococcal 2019-08-10 Completed [facility] f Polysaccharide, 00:00:00 [place] [facility] PPSV23 (PNEUMOVAX) [facility] TDAP (ADACEL) VACCINE 2019-08-10 Completed [facility] 00:00:00 [facility] TDAP 2019-08-10 Completed [facility] 00:00:00 [facility] Pneumococcal 2019-08-10 Completed [facility] f Polysaccharide, 00:00:00 [place] [facility] PPSV23 (PNEUMOVAX) [facility] TDAP (ADACEL) VACCINE 2019-08-10 Completed [facility] 00:00:00 [facility] TDAP 2019-08-10 Completed [facility] 00:00:00 [facility] Pneumococcal 2019-08-10 Completed [facility] Polysaccharide, 00:00:00 [place] [facility] PPSV23 (PNEUMOVAX) [facility] TDAP (ADACEL) VACCINE 2019-08-10 Completed [facility] 00:00:00 [facility] TDAP 2019-08-10 Completed [facility] 00:00:00 [facility] Pneumococcal 2019-08-10 Completed [facility] f Polysaccharide, 00:00:00 [place] [facility] PPSV23 (PNEUMOVAX) [facility] TDAP (ADACEL) VACCINE 2019-08-10 Completed [facility] 00:00:00 [facility] TDAP 2019-08-10 Completed [facility] 00:00:00 [facility] Pneumococcal 2019-08-10 Completed [facility] f Polysaccharide, 00:00:00 [place] [facility] PPSV23 (PNEUMOVAX) [facility] TDAP (ADACEL) VACCINE 2019-08-10 Completed [facility] 00:00:00 [facility] TDAP 2019-08-10 Completed [facility] 00:00:00 [facility] Pneumococcal 2019-08-10 Completed [facility] f Polysaccharide, 00:00:00 [place] [facility] PPSV23 (PNEUMOVAX) [facility] TDAP (ADACEL) VACCINE 2019-08-10 Completed [facility] 00:00:00 [facility] TDAP 2019-08-10 Completed [facility] 00:00:00 [facility] Pneumococcal 2019-08-10 Completed [facility] f Polysaccharide, 00:00:00 [place] [facility] PPSV23 (PNEUMOVAX) [facility] TDAP (ADACEL) VACCINE 2019-08-10 Completed [facility] 00:00:00 [facility] TDAP 2019-08-10 Completed [facility] 00:00:00 [facility] Pneumococcal 2019-08-10 Completed [facility] o f Polysaccharide, 00:00:00 [place] [facility] PPSV23 (PNEUMOVAX) Branch TDAP (ADACEL) VACCINE 2019-08-10 Completed [facility] 00:00:00 [facility] TDAP 2019-08-10 Completed [facility] 00:00:00 [facility] Pneumococcal 2019-08-10 Completed [facility] f Polysaccharide, 00:00:00 [place] [facility] PPSV23 (PNEUMOVAX) [facility] TDAP (ADACEL) VACCINE 2019-08-10 Completed [facility] 00:00:00 [facility] TDAP 2019-08-10 Completed [facility] 00:00:00 [facility] Pneumococcal 2019-08-10 Completed [facility] Polysaccharide, 00:00:00 [place] [facility] PPSV23 (PNEUMOVAX) [facility] TDAP (ADACEL) VACCINE 2019-08-10 Completed [facility] 00:00:00 [facility] TDAP 2019-08-10 Completed [facility] 00:00:00 [facility] Pneumococcal 2019-08-10 Completed [facility] o f Polysaccharide, 00:00:00 [place] [facility] PPSV23 (PNEUMOVAX) [facility] TDAP (ADACEL) VACCINE 2019-08-10 Completed [facility] 00:00:00 [facility] TDAP 2019-08-10 Completed [facility] 00:00:00 [facility] Pneumococcal 2019-08-10 Completed [facility] Polysaccharide, 00:00:00 [place] [facility] PPSV23 (PNEUMOVAX) Branch TDAP (ADACEL) VACCINE 2019-08-10 Completed [facility] 00:00:00 [facility] TDAP 2019-08-10 Completed [facility] 00:00:00 [facility] Pneumococcal 2019-08-10 Completed [facility] f Polysaccharide, 00:00:00 [place] [facility] PPSV23 (PNEUMOVAX) [facility] TDAP (ADACEL) VACCINE 2019-08-10 Completed [facility] 00:00:00 [facility] TDAP 2019-08-10 Completed [facility] 00:00:00 [facility] Pneumococcal 2019-08-10 Completed [facility] Polysaccharide, 00:00:00 [place] [facility] PPSV23 (PNEUMOVAX) Branch TDAP (ADACEL) VACCINE 2019-08-10 Completed [facility] 00:00:00 [facility] TDAP 2019-08-10 Completed [facility] 00:00:00 [facility] Pneumococcal 2019-08-10 Completed [facility] o f Polysaccharide, 00:00:00 [place] [facility] PPSV23 (PNEUMOVAX) [facility] TDAP (ADACEL) VACCINE 2019-08-10 Completed [facility] 00:00:00 [facility] TDAP 2019-08-10 Completed [facility] 00:00:00 [facility] Pneumococcal 2019-08-10 Completed [facility] f Polysaccharide, 00:00:00 [place] [facility] PPSV23 (PNEUMOVAX) [facility] TDAP (ADACEL) VACCINE 2019-08-10 Completed [facility] 00:00:00 [facility] TDAP 2019-08-10 Completed [facility] 00:00:00 [facility] Pneumococcal 2019-08-10 Completed [facility] Polysaccharide, 00:00:00 [place] [facility] PPSV23 (PNEUMOVAX) [facility] TDAP (ADACEL) VACCINE 2019-08-10 Completed [facility] 00:00:00 [facility] TDAP 2019-08-10 Completed [facility] 00:00:00 [facility] Pneumococcal 2019-08-10 Completed [facility] f Polysaccharide, 00:00:00 [place] [facility] PPSV23 (PNEUMOVAX) [facility] TDAP (ADACEL) VACCINE 2019-08-10 Completed [facility] 00:00:00 [facility] TDAP 2019-08-10 Completed [facility] 00:00:00 [facility] Pneumococcal 2019-08-10 Completed [facility] f Polysaccharide, 00:00:00 [place] [facility] PPSV23 (PNEUMOVAX) [facility] TDAP (ADACEL) VACCINE 2019-08-10 Completed [facility] 00:00:00 [facility] TDAP 2019-08-10 Completed [facility] 00:00:00 [facility] Pneumococcal 2019-08-10 Completed [facility] Polysaccharide, 00:00:00 [place] [facility] PPSV23 (PNEUMOVAX) [facility] TDAP (ADACEL) VACCINE 2019-08-10 Completed [facility] 00:00:00 [facility] TDAP 2019-08-10 Completed [facility] 00:00:00 [facility] Pneumococcal 2019-08-10 Completed [facility] o f Polysaccharide, 00:00:00 [place] [facility] PPSV23 (PNEUMOVAX) [facility] TDAP (ADACEL) VACCINE 2019-08-10 Completed [facility] 00:00:00 [facility] TDAP 2019-08-10 Completed [facility] 00:00:00 [facility] Pneumococcal 2019-08-10 Completed [facility] f Polysaccharide, 00:00:00 [place] [facility] PPSV23 (PNEUMOVAX) [facility] TDAP (ADACEL) VACCINE 2019-08-10 Completed [facility] 00:00:00 [facility] TDAP 2019-08-10 Completed [facility] 00:00:00 [facility] Pneumococcal 2019-08-10 Completed [facility] f Polysaccharide, 00:00:00 [place] [facility] PPSV23 (PNEUMOVAX) [facility] TDAP (ADACEL) VACCINE 2019-08-10 Completed [facility] 00:00:00 [facility] TDAP 2019-08-10 Completed [facility] 00:00:00 [facility] Pneumococcal 2019-08-10 Completed [facility] o f Polysaccharide, 00:00:00 [place] [facility] PPSV23 (PNEUMOVAX) Branch TDAP (ADACEL) VACCINE 2019-08-10 Completed [facility] 00:00:00 [facility] TDAP 2019-08-10 Completed [facility] 00:00:00 [facility] Pneumococcal 2019-08-10 Completed [facility] o f Polysaccharide, 00:00:00 [place] [facility] PPSV23 (PNEUMOVAX) [facility] TDAP (ADACEL) VACCINE 2019-08-10 Completed [facility] 00:00:00 [facility] TDAP 2019-08-10 Completed [facility] 00:00:00 [facility] Pneumococcal 2019-08-10 Completed [facility] o f Polysaccharide, 00:00:00 [place] [facility] PPSV23 (PNEUMOVAX) [facility] TDAP (ADACEL) VACCINE 2019-08-10 Completed [facility] 00:00:00 [facility] TDAP 2019-08-10 Completed [facility] 00:00:00 [facility] Pneumococcal 2019-08-10 Completed [facility] o f Polysaccharide, 00:00:00 [place] [facility] PPSV23 (PNEUMOVAX) [facility] TDAP (ADACEL) VACCINE 2019-08-10 Completed [facility] 00:00:00 [facility] TDAP 2019-08-10 Completed [facility] 00:00:00 [facility] Pneumococcal 2019-08-10 Completed [facility] o f Polysaccharide, 00:00:00 [place] [facility] PPSV23 (PNEUMOVAX) [facility] TDAP (ADACEL) VACCINE 2019-08-10 Completed [facility] 00:00:00 [facility] TDAP 2019-08-10 Completed [facility] 00:00:00 [facility] Pneumococcal 2019-08-10 Completed [facility] f Polysaccharide, 00:00:00 [place] [facility] PPSV23 (PNEUMOVAX) [facility] TDAP (ADACEL) VACCINE 2019-08-10 Completed [facility] 00:00:00 [facility] TDAP 2019-08-10 Completed [facility] 00:00:00 [facility] Pneumococcal 2019-08-10 Completed [facility] o f Polysaccharide, 00:00:00 [place] [facility] PPSV23 (PNEUMOVAX) [facility] TDAP (ADACEL) VACCINE 2019-08-10 Completed [facility] 00:00:00 [facility] TDAP 2019-08-10 Completed [facility] 00:00:00 [facility] Pneumococcal 2019-08-10 Completed [facility] o f Polysaccharide, 00:00:00 [place] [facility] PPSV23 (PNEUMOVAX) [facility] TDAP (ADACEL) VACCINE 2019-08-10 Completed [facility] 00:00:00 [facility] TDAP 2019-08-10 Completed [facility] 00:00:00 [facility] Pneumococcal 2019-08-10 Completed [facility] o f Polysaccharide, 00:00:00 [place] [facility] PPSV23 (PNEUMOVAX) [facility] TDAP (ADACEL) VACCINE 2019-08-10 Completed [facility] 00:00:00 [facility] TDAP 2019-08-10 Completed [facility] 00:00:00 [facility] Pneumococcal 2019-08-10 Completed [facility] o f Polysaccharide, 00:00:00 [place] [facility] PPSV23 (PNEUMOVAX) Branch TDAP (ADACEL) VACCINE 2019-08-10 Completed [facility] 00:00:00 [facility] TDAP 2019-08-10 Completed [facility] 00:00:00 [facility] Pneumococcal 2019-08-10 Completed [facility] Polysaccharide, 00:00:00 [place] [facility] PPSV23 (PNEUMOVAX) Branch TDAP (ADACEL) VACCINE 2019-08-10 Completed [facility] 00:00:00 [facility] TDAP 2019-08-10 Completed [facility] 00:00:00 [facility] Pneumococcal 2019-08-10 Completed [facility] o f Polysaccharide, 00:00:00 [place] [facility] PPSV23 (PNEUMOVAX) Branch TDAP (ADACEL) VACCINE 2019-08-10 Completed [facility] 00:00:00 [facility] TDAP 2019-08-10 Completed [facility] 00:00:00 [facility] Pneumococcal 2019-08-10 Completed [facility] o f Polysaccharide, 00:00:00 [place] [facility] PPSV23 (PNEUMOVAX) Branch TDAP (ADACEL) VACCINE 2019-08-10 Completed [facility] 00:00:00 [facility] TDAP 2019-08-10 Completed [facility] 00:00:00 [facility] Pneumococcal 2019-08-10 Completed [facility] o [facility] Polysaccharide, 00:00:00 [place] [facility] PPSV23 (PNEUMOVAX) Branch TDAP (ADACEL) VACCINE 2019-08-10 Completed [facility] 00:00:00 [facility] TDAP 2019-08-10 Completed [facility] 00:00:00 [facility] Pneumococcal 2019-08-10 Completed [facility] o f Polysaccharide, 00:00:00 [place] [facility] PPSV23 (PNEUMOVAX) Branch TDAP (ADACEL) VACCINE 2019-08-10 Completed [facility] 00:00:00 [facility] TDAP 2019-08-10 Completed [facility] 00:00:00 [facility] Pneumococcal 2019-08-10 Completed [facility] o f Polysaccharide, 00:00:00 [place] [facility] PPSV23 (PNEUMOVAX) Branch TDAP (ADACEL) VACCINE 2019-08-10 Completed [facility] 00:00:00 [facility] TDAP 2019-08-10 Completed [facility] 00:00:00 [facility] Pneumococcal 2019-08-10 Completed [facility] o f Polysaccharide, 00:00:00 [place] [facility] PPSV23 (PNEUMOVAX) Branch TDAP (ADACEL) VACCINE 2019-08-10 Completed [facility] 00:00:00 [facility] TDAP 2019-08-10 Completed [facility] 00:00:00 [facility] Pneumococcal 2019-08-10 Completed [facility] o f Polysaccharide, 00:00:00 [place] [facility] PPSV23 (PNEUMOVAX) Branch TDAP (ADACEL) VACCINE 2019-08-10 Completed [facility] 00:00:00 [facility] TDAP 2019-08-10 Completed [facility] 00:00:00 [facility] Pneumococcal 2019-08-10 Completed [facility] o f Polysaccharide, 00:00:00 [place] [facility] PPSV23 (PNEUMOVAX) Branch TDAP (ADACEL) VACCINE 2019-08-10 Completed [facility] 00:00:00 [facility] TDAP 2019-08-10 Completed [facility] 00:00:00 [facility] Pneumococcal 2019-08-10 Completed [facility] o f Polysaccharide, 00:00:00 [place] [facility] PPSV23 (PNEUMOVAX) Branch TDAP (ADACEL) VACCINE 2019-08-10 Completed [facility] 00:00:00 [facility] TDAP 2019-08-10 Completed [facility] 00:00:00 [facility] Pneumococcal 2019-08-10 Completed [facility] o f Polysaccharide, 00:00:00 [place] [facility] PPSV23 (PNEUMOVAX) Branch TDAP (ADACEL) VACCINE 2019-08-10 Completed [facility] 00:00:00 [facility] TDAP 2019-08-10 Completed [facility] 00:00:00 [facility] Pneumococcal 2019-08-10 Completed [facility] o [facility] Polysaccharide, 00:00:00 [place] [facility] PPSV23 (PNEUMOVAX) Branch TDAP (ADACEL) VACCINE 2019-08-10 Completed [facility] 00:00:00 [facility] TDAP 2019-08-10 Completed [facility] 00:00:00 [facility] Pneumococcal 2019-08-10 Completed [facility] o [facility] Polysaccharide, 00:00:00 [place] [facility] PPSV23 (PNEUMOVAX) [facility] TDAP (ADACEL) VACCINE 2019-08-10 Completed [facility] 00:00:00 [facility] TDAP 2019-08-10 Completed [facility] 00:00:00 [facility] Pneumococcal 2019-08-10 Completed [facility] o [facility] Polysaccharide, 00:00:00 [place] [facility] PPSV23 (PNEUMOVAX) Branch TDAP (ADACEL) VACCINE 2019-08-10 Completed [facility] 00:00:00 [facility] TDAP 2019-08-10 Completed [facility] 00:00:00 [facility] Pneumococcal 2019-08-10 Completed [facility] o f Polysaccharide, 00:00:00 [place] [facility] PPSV23 (PNEUMOVAX) [facility] TDAP (ADACEL) VACCINE 2019-08-10 Completed [facility] 00:00:00 [facility] TDAP 2019-08-10 Completed [facility] 00:00:00 [facility] Pneumococcal 2019-08-10 Completed [facility] o f Polysaccharide, 00:00:00 [place] [facility] PPSV23 (PNEUMOVAX) Branch TDAP (ADACEL) VACCINE 2019-08-10 Completed [facility] 00:00:00 [facility] TDAP 2019-08-10 Completed [facility] 00:00:00 [facility] Pneumococcal 2019-08-10 Completed [facility] o [facility] Polysaccharide, 00:00:00 [place] [facility] PPSV23 (PNEUMOVAX) [facility] TDAP (ADACEL) VACCINE 2019-08-10 Completed [facility] 00:00:00 [facility] TDAP 2019-08-10 Completed [facility] 00:00:00 [facility] Pneumococcal 2019-08-10 Completed [facility] o [facility] Polysaccharide, 00:00:00 [place] [facility] PPSV23 (PNEUMOVAX) [facility] TDAP (ADACEL) VACCINE 2019-08-10 Completed [facility] 00:00:00 [facility] TDAP 2019-08-10 Completed [facility] 00:00:00 [facility] Pneumococcal 2019-08-10 Completed [facility] o f Polysaccharide, 00:00:00 [place] [facility] PPSV23 (PNEUMOVAX) [facility] TDAP (ADACEL) VACCINE 2019-08-10 Completed [facility] 00:00:00 [facility] TDAP 2019-08-10 Completed [facility] 00:00:00 [facility] Pneumococcal 2019-08-10 Completed [facility] o f Polysaccharide, 00:00:00 [place] [facility] PPSV23 (PNEUMOVAX) Branch TDAP (ADACEL) VACCINE 2019-08-10 Completed [facility] 00:00:00 [facility] TDAP 2019-08-10 Completed [facility] 00:00:00 [facility] Pneumococcal 2019-08-10 Completed [facility] o f Polysaccharide, 00:00:00 [place] [facility] PPSV23 (PNEUMOVAX) [facility] TDAP (ADACEL) VACCINE 2019-08-10 Completed [facility] 00:00:00 [facility] TDAP 2019-08-10 Completed [facility] 00:00:00 [facility] Pneumococcal 2019-08-10 Completed [facility] o [facility] Polysaccharide, 00:00:00 [place] [facility] PPSV23 (PNEUMOVAX) [facility] TDAP (ADACEL) VACCINE 2019-08-10 Completed [facility] 00:00:00 [facility] TDAP 2019-08-10 Completed [facility] 00:00:00 [facility] Pneumococcal 2019-08-10 Completed [facility] o [facility] Polysaccharide, 00:00:00 [place] [facility] PPSV23 (PNEUMOVAX) [facility] TDAP (ADACEL) VACCINE 2019-08-10 Completed [facility] 00:00:00 [facility] TDAP 2019-08-10 Completed [facility] 00:00:00 [facility] Pneumococcal 2019-08-10 Completed [facility] Polysaccharide, 00:00:00 [place] [facility] PPSV23 (PNEUMOVAX) [facility] TDAP (ADACEL) VACCINE 2019-08-10 Completed [facility] 00:00:00 [facility] TDAP 2019-08-10 Completed [facility] 00:00:00 [facility] Pneumococcal 2019-08-10 Completed [facility] Polysaccharide, 00:00:00 [place] [facility] PPSV23 (PNEUMOVAX) [facility] TDAP (ADACEL) VACCINE 2019-08-10 Completed [facility] 00:00:00 [facility] TDAP 2019-08-10 Completed [facility] 00:00:00 [facility] Pneumococcal 2019-08-10 Completed [facility] f Polysaccharide, 00:00:00 [place] [facility] PPSV23 (PNEUMOVAX) Branch TDAP (ADACEL) VACCINE 2019-08-10 Completed [facility] 00:00:00 [facility] TDAP 2019-08-10 Completed [facility] 00:00:00 [facility] Pneumococcal 2019-08-10 Completed [facility] o f Polysaccharide, 00:00:00 [place] [facility] PPSV23 (PNEUMOVAX) [facility] TDAP (ADACEL) VACCINE 2019-08-10 Completed [facility] 00:00:00 [facility] TDAP 2019-08-10 Completed [facility] 00:00:00 [facility] Pneumococcal 2019-08-10 Completed [facility] o f Polysaccharide, 00:00:00 [place] [facility] PPSV23 (PNEUMOVAX) [facility] TDAP (ADACEL) VACCINE 2019-08-10 Completed [facility] 00:00:00 [facility] TDAP 2019-08-10 Completed [facility] 00:00:00 [facility] Pneumococcal 2019-08-10 Completed [facility] o f Polysaccharide, 00:00:00 [place] [facility] PPSV23 (PNEUMOVAX) [facility] TDAP (ADACEL) VACCINE 2019-08-10 Completed [facility] 00:00:00 [facility] TDAP 2019-08-10 Completed [facility] 00:00:00 [facility] Pneumococcal 2019-08-10 Completed [facility] Polysaccharide, 00:00:00 [place] [facility] PPSV23 (PNEUMOVAX) [facility] TDAP (ADACEL) VACCINE 2019-08-10 Completed [facility] 00:00:00 [facility] TDAP 2019-08-10 Completed [facility] 00:00:00 [facility] Pneumococcal 2019-08-10 Completed [facility] o [facility] Polysaccharide, 00:00:00 [place] [facility] PPSV23 (PNEUMOVAX) [facility] TDAP (ADACEL) VACCINE 2019-08-10 Completed [facility] 00:00:00 [facility] TDAP 2019-08-10 Completed [facility] 00:00:00 [facility] Pneumococcal 2019-08-10 Completed [facility] o f Polysaccharide, 00:00:00 [place] [facility] PPSV23 (PNEUMOVAX) [facility] TDAP (ADACEL) VACCINE 2019-08-10 Completed [facility] 00:00:00 [facility] TDAP 2019-08-10 Completed [facility] 00:00:00 [facility] Pneumococcal 2019-08-10 Completed [facility] o f Polysaccharide, 00:00:00 [place] [facility] PPSV23 (PNEUMOVAX) [facility] TDAP (ADACEL) VACCINE 2019-08-10 Completed [facility] 00:00:00 [facility] TDAP 2019-08-10 Completed [facility] 00:00:00 [facility] Pneumococcal 2019-08-10 Completed [facility] Polysaccharide, 00:00:00 [place] [facility] PPSV23 (PNEUMOVAX) [facility] TDAP (ADACEL) VACCINE 2019-08-10 Completed [facility] 00:00:00 [facility] TDAP 2019-08-10 Completed [facility] 00:00:00 [facility] Pneumococcal 2019-08-10 Completed [facility] Polysaccharide, 00:00:00 [place] [facility] PPSV23 (PNEUMOVAX) [facility] TDAP (ADACEL) VACCINE 2019-08-10 Completed [facility] 00:00:00 [facility] TDAP 2019-08-10 Completed [facility] 00:00:00 [facility] Pneumococcal 2019-08-10 Completed [facility] Polysaccharide, 00:00:00 [place] [facility] PPSV23 (PNEUMOVAX) [facility] TDAP (ADACEL) VACCINE 2019-08-10 Completed [facility] 00:00:00 [facility] TDAP 2019-08-10 Completed [facility] 00:00:00 [facility] Pneumococcal 2019-08-10 Completed [facility] Polysaccharide, 00:00:00 [place] [facility] PPSV23 (PNEUMOVAX) [facility] TDAP (ADACEL) VACCINE 2019-08-10 Completed [facility] 00:00:00 [facility] TDAP 2019-08-10 Completed [facility] 00:00:00 [facility] Pneumococcal 2019-08-10 Completed [facility] f Polysaccharide, 00:00:00 [place] [facility] PPSV23 (PNEUMOVAX) [facility] TDAP (ADACEL) VACCINE 2019-08-10 Completed [facility] 00:00:00 [facility] TDAP 2019-08-10 Completed [facility] 00:00:00 [facility] Pneumococcal 2019-08-10 Completed [facility] o f Polysaccharide, 00:00:00 [place] [facility] PPSV23 (PNEUMOVAX) [facility] TDAP (ADACEL) VACCINE 2019-08-10 Completed [facility] 00:00:00 [facility] TDAP 2019-08-10 Completed [facility] 00:00:00 [facility] Pneumococcal 2019-08-10 Completed [facility] Polysaccharide, 00:00:00 [place] [facility] PPSV23 (PNEUMOVAX) [facility] TDAP (ADACEL) VACCINE 2019-08-10 Completed [facility] 00:00:00 [place] [facility] TDAP 2019-08-10 Completed [facility] 00:00:00 [facility] Pneumococcal 2019-08-10 Completed University o f Polysaccharide, 00:00:00 [place] [facility] PPSV23 (PNEUMOVAX) Branch TDAP (ADACEL) VACCINE 2019-08-10 Completed [facility] vers[facility] 00:00:00 [place] [facility] TDAP 2019-08-10 Completed [facility] 00:00:00 [facility] Pneumococcal 2019-08-10 Completed [facility] o f Polysaccharide, 00:00:00 [place] [facility] PPSV23 (PNEUMOVAX) Branch TDAP (ADACEL) VACCINE 2019-08-10 Completed [facility] vers[facility] of 00:00:00 [facility] TDAP 2019-08-10 Completed [facility] 00:00:00 [facility] Pneumococcal 2019-08-10 Completed University o f Polysaccharide, 00:00:00 [place] [facility] PPSV23 (PNEUMOVAX) Branch TDAP (ADACEL) VACCINE 2019-08-10 Completed [facility] vers[facility] 00:00:00 [facility] TDAP 2019-08-10 Completed [facility] 00:00:00 [facility] Pneumococcal 2019-08-10 Completed University o f Polysaccharide, 00:00:00 [place] [facility] PPSV23 (PNEUMOVAX) Branch TDAP (ADACEL) VACCINE 2019-08-10 Completed [facility] vers[facility] 00:00:00 [facility] TDAP 2019-08-10 Completed [facility] 00:00:00 [facility] Pneumococcal 2019-08-10 Completed University o f Polysaccharide, 00:00:00 [place] [facility] PPSV23 (PNEUMOVAX) Branch TDAP (ADACEL) VACCINE 2019-08-10 Completed [facility] vers[facility] 00:00:00 [facility] TDAP 2019-08-10 Completed [facility] 00:00:00 [facility] Pneumococcal 2019-08-10 Completed University o f Polysaccharide, 00:00:00 [place] [facility] PPSV23 (PNEUMOVAX) Branch TDAP (ADACEL) VACCINE 2019-08-10 Completed [facility] vers[facility] 00:00:00 [facility] TDAP 2019-08-10 Completed [facility] 00:00:00 [facility] Pneumococcal 2019-08-10 Completed [facility] o f Polysaccharide, 00:00:00 [place] [facility] PPSV23 (PNEUMOVAX) Branch TDAP (ADACEL) VACCINE 2019-08-10 Completed Uni versity of 00:00:00 [facility] TDAP 2019-08-10 Completed [facility] 00:00:00 [facility] Pneumococcal 2019-08-10 Completed [facility] o f Polysaccharide, 00:00:00 [place] [facility] PPSV23 (PNEUMOVAX) Branch TDAP (ADACEL) VACCINE 2019-08-10 Completed [facility] vers[facility] 00:00:00 [facility] TDAP 2019-08-10 Completed [facility] 00:00:00 [facility] Pneumococcal 2019-08-10 Completed University o f Polysaccharide, 00:00:00 [place] [facility] PPSV23 (PNEUMOVAX) Branch TDAP (ADACEL) VACCINE 2019-08-10 Completed Uni versity of 00:00:00 [facility] TDAP 2019-08-10 Completed University of 00:00:00 [facility] Pneumococcal 2019-08-10 Completed University o f Polysaccharide, 00:00:00 [place] [facility] PPSV23 (PNEUMOVAX) Branch TDAP (ADACEL) VACCINE 2019-08-10 Completed Uni versity of 00:00:00 [facility] TDAP 2019-08-10 Completed [facility] of 00:00:00 [facility] Pneumococcal 2019-08-10 Completed University o f Polysaccharide, 00:00:00 [place] [facility] PPSV23 (PNEUMOVAX) Branch TDAP (ADACEL) VACCINE 2019-08-10 Completed Uni versity of 00:00:00 [facility] TDAP 2019-08-10 Completed [facility] of 00:00:00 [facility] Pneumococcal 2019-08-10 Completed University o f Polysaccharide, 00:00:00 [place] [facility] PPSV23 (PNEUMOVAX) Branch TDAP (ADACEL) VACCINE 2019-08-10 Completed Uni vers[facility] of 00:00:00 [facility] TDAP 2019-08-10 Completed [facility] of 00:00:00 [facility] Pneumococcal 2019-08-10 Completed University o f Polysaccharide, 00:00:00 [place] [facility] PPSV23 (PNEUMOVAX) Branch TDAP (ADACEL) VACCINE 2019-08-10 Completed Uni versity of 00:00:00 [facility] TDAP 2019-08-10 Completed [facility] of 00:00:00 [facility] Pneumococcal 2019-08-10 Completed University o f Polysaccharide, 00:00:00 [place] [facility] PPSV23 (PNEUMOVAX) Branch TDAP (ADACEL) VACCINE 2019-08-10 Completed Uni versity of 00:00:00 [place] [facility] TDAP 2019-08-10 Completed [facility] 00:00:00 [facility] Pneumococcal 2019-08-10 Completed University o f Polysaccharide, 00:00:00 [place] [facility] PPSV23 (PNEUMOVAX) Branch TDAP (ADACEL) VACCINE 2019-08-10 Completed Uni versity of 00:00:00 [facility] TDAP 2019-08-10 Completed [facility] of 00:00:00 [facility] Pneumococcal 2019-08-10 Completed University o f Polysaccharide, 00:00:00 [place] [facility] PPSV23 (PNEUMOVAX) Branch TDAP (ADACEL) VACCINE 2019-08-10 Completed Uni versity of 00:00:00 [facility] TDAP 2019-08-10 Completed [facility] of 00:00:00 [facility] Pneumococcal 2019-08-10 Completed University o f Polysaccharide, 00:00:00 [place] [facility] PPSV23 (PNEUMOVAX) Branch TDAP (ADACEL) VACCINE 2019-08-10 Completed Uni versity of 00:00:00 [facility] TDAP 2019-08-10 Completed [facility] of 00:00:00 [facility] Pneumococcal 2019-08-10 Completed University o f Polysaccharide, 00:00:00 [place] [facility] PPSV23 (PNEUMOVAX) Branch TDAP (ADACEL) VACCINE 2019-08-10 Completed Uni vers[facility] 00:00:00 [facility] TDAP 2019-08-10 Completed [facility] of 00:00:00 [facility] Pneumococcal 2019-08-10 Completed University o f Polysaccharide, 00:00:00 [place] [facility] PPSV23 (PNEUMOVAX) Branch TDAP (ADACEL) VACCINE 2019-08-10 Completed Uni vers[facility] of 00:00:00 [facility] TDAP 2019-08-10 Completed [facility] 00:00:00 [facility] Pneumococcal 2019-08-10 Completed University o f Polysaccharide, 00:00:00 [place] [facility] PPSV23 (PNEUMOVAX) Branch TDAP (ADACEL) VACCINE 2019-08-10 Completed Uni versity of 00:00:00 [facility] TDAP 2019-08-10 Completed [facility] of 00:00:00 [facility] Pneumococcal 2019-08-10 Completed University o f Polysaccharide, 00:00:00 [place] [facility] PPSV23 (PNEUMOVAX) Branch TDAP (ADACEL) VACCINE 2019-08-10 Completed Uni versity of 00:00:00 [facility] TDAP 2019-08-10 Completed [facility] of 00:00:00 [facility] Pneumococcal 2019-08-10 Completed University o f Polysaccharide, 00:00:00 [place] [facility] PPSV23 (PNEUMOVAX) Branch TDAP (ADACEL) VACCINE 2019-08-10 Completed Uni versity of 00:00:00 [facility] TDAP 2019-08-10 Completed [facility] of 00:00:00 [facility] Pneumococcal 2019-08-10 Completed [facility] o f Polysaccharide, 00:00:00 [place] [facility] PPSV23 (PNEUMOVAX) Branch TDAP (ADACEL) VACCINE 2019-08-10 Completed Uni versity of 00:00:00 [facility] TDAP 2019-08-10 Completed [facility] of 00:00:00 [facility] Pneumococcal 2019-08-10 Completed University o f Polysaccharide, 00:00:00 [facility] ical PPSV23 (PNEUMOVAX) Branch TDAP (ADACEL) VACCINE 2019-08-10 Completed Uni versity of 00:00:00 [facility] TDAP 2019-08-10 Completed [facility] of 00:00:00 [facility] Influenza Virus 2019-07-04 Completed Universit y of Vaccine 00:00:00 [facility] Influenza Virus 2019-07-04 Completed Universit y of Vaccine Recomb Quad 00:00:00 [place] [facility], Preserv and ABX Branc h Free 18-64 YRS Influenza Virus 2019-07-04 Completed Universit y of Vaccine 00:00:00 [facility] Influenza Virus 2019-07-04 Completed Universit y of Vaccine Recomb Quad 00:00:00 [place] [facility], Preserv and ABX Branc h Free 18-64 YRS Influenza Virus 2019-07-04 Completed Universit y of Vaccine 00:00:00 [facility] Influenza Virus 2019-07-04 Completed Universit y of Vaccine Recomb Quad 00:00:00 [place] [facility], Preserv and ABX Branc h Free 18-64 YRS Influenza Virus 2019-07-04 Completed Universit y of Vaccine 00:00:00 [facility] Influenza Virus 2019-07-04 Completed Universit y of Vaccine [facility] Quad 00:00:00 [place] [facility], Preserv and ABX Branc h Free 18-64 YRS Influenza Virus 2019-07-04 Completed Universit y of Vaccine 00:00:00 [facility] Influenza Virus 2019-07-04 Completed Universit y of Vaccine Recomb Quad 00:00:00 [place] [facility], Preserv and ABX Branc h Free 18-64 YRS Influenza Virus 2019-07-04 Completed Universit y of Vaccine 00:00:00 [facility] Influenza Virus 2019-07-04 Completed Universit y of Vaccine [facility] Quad 00:00:00 [place] [facility], Preserv and ABX Branc h Free 18-64 YRS Influenza Virus 2019-07-04 Completed Universit y of Vaccine 00:00:00 [facility] Influenza Virus 2019-07-04 Completed Universit y of Vaccine Recomb Quad 00:00:00 [place] [facility], Preserv and ABX Branc h Free 18-64 YRS Influenza Virus 2019-07-04 Completed Universit y of Vaccine 00:00:00 [facility] Influenza Virus 2019-07-04 Completed Universit y of Vaccine [facility] Quad 00:00:00 [place] [facility], Preserv and ABX Branc h Free 18-64 YRS Influenza Virus 2019-07-04 Completed Universit y of Vaccine 00:00:00 [facility] Influenza Virus 2019-07-04 Completed Universit y of Vaccine [facility]comb Quad 00:00:00 [place] [facility], Preserv and ABX Branc h Free 18-64 YRS Influenza Virus 2019-07-04 Completed Universit y of Vaccine 00:00:00 [facility] Influenza Virus 2019-07-04 Completed Universit y of Vaccine [facility]comb Quad 00:00:00 [place] [facility], Preserv and ABX Branc h Free 18-64 YRS Influenza Virus 2019-07-04 Completed Universit y of Vaccine 00:00:00 [facility] Influenza Virus 2019-07-04 Completed [facility]it y of Vaccine [place] Quad 00:00:00 [place] [facility], Preserv and ABX Branc h Free 18-64 YRS Influenza Virus 2019-07-04 Completed Universit y of Vaccine 00:00:00 [facility] Influenza Virus 2019-07-04 Completed Universit y of Vaccine [facility] Quad 00:00:00 [place] [facility], Preserv and ABX Branc h Free 18-64 YRS Influenza Virus 2019-07-04 Completed Universit y of Vaccine 00:00:00 [facility] Influenza Virus 2019-07-04 Completed [facility]it y of Vaccine Recomb Quad 00:00:00 [place] [facility], Preserv and ABX Branc h Free 18-64 YRS Influenza Virus 2019-07-04 Completed Universit y of Vaccine 00:00:00 [facility] Influenza Virus 2019-07-04 Completed [facility]it y of Vaccine [facility]comb Quad 00:00:00 [place] [facility], Preserv and ABX Branc h Free 18-64 YRS Influenza Virus 2019-07-04 Completed Universit y of Vaccine 00:00:00 [facility] Influenza Virus 2019-07-04 Completed [facility]it y of Vaccine [facility]comb Quad 00:00:00 [place] [facility], Preserv and ABX Branc h Free 18-64 YRS Influenza Virus 2019-07-04 Completed Universit y of Vaccine 00:00:00 [facility] Influenza Virus 2019-07-04 Completed [facility]it y of Vaccine [facility]comb Quad 00:00:00 [place] [facility], Preserv and ABX Branc h Free 18-64 YRS Influenza Virus 2019-07-04 Completed Universit y of Vaccine 00:00:00 [facility] Influenza Virus 2019-07-04 Completed [facility]it y of Vaccine [facility]comb Quad 00:00:00 [place] [facility], Preserv and ABX Branc h Free 18-64 YRS Influenza Virus 2019-07-04 Completed Universit y of Vaccine 00:00:00 [facility] Influenza Virus 2019-07-04 Completed Universit y of Vaccine Recomb Quad 00:00:00 [place] [facility], Preserv and ABX Branc h Free 18-64 YRS Influenza Virus 2019-07-04 Completed Universit y of Vaccine 00:00:00 [facility] Influenza Virus 2019-07-04 Completed Universit y of Vaccine [facility]comb Quad 00:00:00 [place] [facility], Preserv and ABX Branc h Free 18-64 YRS Influenza Virus 2019-07-04 Completed Universit y of Vaccine 00:00:00 [facility] Influenza Virus 2019-07-04 Completed [facility]it y of Vaccine [place] 00:00:00 [place] [facility], Preserv and ABX Branc h Free 18-64 YRS Influenza Virus 2019-07-04 Completed Universit y of Vaccine 00:00:00 [facility] Influenza Virus 2019-07-04 Completed [facility]it y of Vaccine [facility]comb Quad 00:00:00 [place] [facility], Preserv and ABX Branc h Free 18-64 YRS Influenza Virus 2019-07-04 Completed Universit y of Vaccine 00:00:00 [facility] Influenza Virus 2019-07-04 Completed [facility]it y of Vaccine [place]comb Quad 00:00:00 [place] [facility], Preserv and ABX Branc h Free 18-64 YRS Influenza Virus 2019-07-04 Completed Universit y of Vaccine 00:00:00 [facility] Influenza Virus 2019-07-04 Completed [facility]it y of Vaccine [facility]comb Quad 00:00:00 [place] [facility], Preserv and ABX Branc h Free 18-64 YRS Influenza Virus 2019-07-04 Completed Universit y of Vaccine 00:00:00 [facility] Influenza Virus 2019-07-04 Completed [facility]it y of Vaccine Recomb Quad 00:00:00 [place] [facility], Preserv and ABX Branc h Free 18-64 YRS Influenza Virus 2019-07-04 Completed Universit y of Vaccine 00:00:00 [facility] Influenza Virus 2019-07-04 Completed [facility]it y of Vaccine [facility]comb Quad 00:00:00 [place] [facility], Preserv and ABX Branc h Free 18-64 YRS Influenza Virus 2019-07-04 Completed Universit y of Vaccine 00:00:00 [facility] Influenza Virus 2019-07-04 Completed [facility]it y of Vaccine Recomb Quad 00:00:00 [place] [facility], Preserv and ABX Branc h Free 18-64 YRS Influenza Virus 2019-07-04 Completed Universit y of Vaccine 00:00:00 [facility] Influenza Virus 2019-07-04 Completed [facility]it y of Vaccine Recomb Quad 00:00:00 [place] [facility], Preserv and ABX Branc h Free 18-64 YRS Influenza Virus 2019-07-04 Completed Universit y of Vaccine 00:00:00 [facility] Influenza Virus 2019-07-04 Completed [facility]it y of Vaccine Recomb Quad 00:00:00 [place] [facility], Preserv and ABX Branc h Free 18-64 YRS Influenza Virus 2019-07-04 Completed Universit y of Vaccine 00:00:00 [facility] Influenza Virus 2019-07-04 Completed [facility]it y of Vaccine Recomb Quad 00:00:00 [place] [facility], Preserv and ABX Branc h Free 18-64 YRS Influenza Virus 2019-07-04 Completed [facility]it y of Vaccine 00:00:00 [facility] Influenza Virus 2019-07-04 Completed [facility] y of Vaccine Recomb Quad 00:00:00 [place] [facility], Preserv and ABX Branc h Free 18-64 YRS Influenza Virus 2019-07-04 Completed Universit y of Vaccine 00:00:00 [facility] Influenza Virus 2019-07-04 Completed [facility]it y of Vaccine Recomb Quad 00:00:00 [place] [facility], Preserv and ABX Branc h Free 18-64 YRS Influenza Virus 2019-07-04 Completed [facility]it y of Vaccine 00:00:00 [facility] Influenza Virus 2019-07-04 Completed [facility]it y of Vaccine Recomb Quad 00:00:00 [place] [facility], Preserv and ABX Branc h Free 18-64 YRS Influenza Virus 2019-07-04 Completed Universit y of Vaccine 00:00:00 [facility] Influenza Virus 2019-07-04 Completed [facility]it y of Vaccine Recomb Quad 00:00:00 [place] [facility], Preserv and ABX Branc h Free 18-64 YRS Influenza Virus 2019-07-04 Completed [facility]it y of Vaccine 00:00:00 [facility] Influenza Virus 2019-07-04 Completed [facility]it y of Vaccine Recomb Quad 00:00:00 [place] [facility], Preserv and ABX Branc h Free 18-64 YRS Influenza Virus 2019-07-04 Completed [facility]it y of Vaccine 00:00:00 [facility] Influenza Virus 2019-07-04 Completed [facility]it y of Vaccine Recomb Quad 00:00:00 [place] [facility], Preserv and ABX Branc h Free 18-64 YRS Influenza Virus 2019-07-04 Completed [facility]it y of Vaccine 00:00:00 [facility] Influenza Virus 2019-07-04 Completed [facility] y of Vaccine Recomb Quad 00:00:00 [place] [facility], Preserv and ABX Branc h Free 18-64 YRS Influenza Virus 2019-07-04 Completed [facility]it y of Vaccine 00:00:00 [facility] Influenza Virus 2019-07-04 Completed [facility]it y of Vaccine Recomb Quad 00:00:00 [place] [facility], Preserv and ABX Branc h Free 18-64 YRS Influenza Virus 2019-07-04 Completed [facility]it y of Vaccine 00:00:00 [facility] Influenza Virus 2019-07-04 Completed [facility]it y of Vaccine Recomb Quad 00:00:00 [place] [facility], Preserv and ABX Branc h Free 18-64 YRS Influenza Virus 2019-07-04 Completed [facility]it y of Vaccine 00:00:00 [facility] Influenza Virus 2019-07-04 Completed [facility] y of Vaccine Recomb Quad 00:00:00 [place] [facility], Preserv and ABX Branc h Free 18-64 YRS Influenza Virus 2019-07-04 Completed [facility]it y of Vaccine 00:00:00 [facility] Influenza Virus 2019-07-04 Completed [facility] y of Vaccine Recomb Quad 00:00:00 [place] [facility], Preserv and ABX Branc h Free 18-64 YRS Influenza Virus 2019-07-04 Completed [facility]it y of Vaccine 00:00:00 [facility] Influenza Virus 2019-07-04 Completed [facility] y of Vaccine Recomb Quad 00:00:00 [place] [facility], Preserv and ABX Branc h Free 18-64 YRS Influenza Virus 2019-07-04 Completed [facility]it y of Vaccine 00:00:00 [facility] Influenza Virus 2019-07-04 Completed [facility] y of Vaccine Recomb Quad 00:00:00 [place] [facility], Preserv and ABX Branc h Free 18-64 YRS Influenza Virus 2019-07-04 Completed [facility]it y of Vaccine 00:00:00 [facility] Influenza Virus 2019-07-04 Completed [facility]it y of Vaccine Recomb Quad 00:00:00 [place] [facility], Preserv and ABX Branc h Free 18-64 YRS Influenza Virus 2019-07-04 Completed [facility]it y of Vaccine 00:00:00 [facility] Influenza Virus 2019-07-04 Completed [facility] y of Vaccine Recomb Quad 00:00:00 [place] [facility], Preserv and ABX Branc h Free 18-64 YRS Influenza Virus 2019-07-04 Completed [facility] y of Vaccine 00:00:00 [facility] Influenza Virus 2019-07-04 Completed [facility] y of Vaccine Recomb Quad 00:00:00 [place] [facility], Preserv and ABX Branc h Free 18-64 YRS Influenza Virus 2019-07-04 Completed [facility]it y of Vaccine 00:00:00 [facility] Influenza Virus 2019-07-04 Completed [facility] y of Vaccine Recomb Quad 00:00:00 [place] [facility], Preserv and ABX Branc h Free 18-64 YRS Influenza Virus 2019-07-04 Completed [facility]it y of Vaccine 00:00:00 [facility] Influenza Virus 2019-07-04 Completed [facility] y of Vaccine [facility]comb Quad 00:00:00 [place] [facility], Preserv and ABX Branc h Free 18-64 YRS Influenza Virus 2019-07-04 Completed [facility] y of Vaccine 00:00:00 [facility] Influenza Virus 2019-07-04 Completed [facility] y of Vaccine Recomb Quad 00:00:00 [place] [facility], Preserv and ABX Branc h Free 18-64 YRS Influenza Virus 2019-07-04 Completed [facility] y of Vaccine 00:00:00 [facility] Influenza Virus 2019-07-04 Completed [facility] y of Vaccine Recomb Quad 00:00:00 [place] [facility], Preserv and ABX Branc h Free 18-64 YRS Influenza Virus 2019-07-04 Completed [facility] y of Vaccine 00:00:00 [facility] Influenza Virus 2019-07-04 Completed [facility] y of Vaccine [facility] 00:00:00 [place] [facility], Preserv and ABX Branc h Free 18-64 YRS Influenza Virus 2019-07-04 Completed [facility]it y of Vaccine 00:00:00 [facility] Influenza Virus 2019-07-04 Completed [facility] y of Vaccine Recomb Quad 00:00:00 [place] [facility], Preserv and ABX Branc h Free 18-64 YRS Influenza Virus 2019-07-04 Completed [facility]it y of Vaccine 00:00:00 [facility] Influenza Virus 2019-07-04 Completed [facility] y of Vaccine [facility] 00:00:00 [place] [facility], Preserv and ABX Branc h Free 18-64 YRS Influenza Virus 2019-07-04 Completed [facility]it y of Vaccine 00:00:00 [facility] Influenza Virus 2019-07-04 Completed [facility] y of Vaccine [facility] 00:00:00 [place] [facility], Preserv and ABX Branc h Free 18-64 YRS Influenza Virus 2019-07-04 Completed [facility]it y of Vaccine 00:00:00 [facility] Influenza Virus 2019-07-04 Completed [facility] y of Vaccine [facility] 00:00:00 [place] [facility], Preserv and ABX Branc h Free 18-64 YRS Influenza Virus 2019-07-04 Completed [facility]it y of Vaccine 00:00:00 [facility] Influenza Virus 2019-07-04 Completed [facility] y of Vaccine [facility] 00:00:00 [place] [facility], Preserv and ABX Branc h Free 18-64 YRS Influenza Virus 2019-07-04 Completed [facility] y of Vaccine 00:00:00 [facility] Influenza Virus 2019-07-04 Completed [facility] y of Vaccine [facility] 00:00:00 [place] [facility], Preserv and ABX Branc h Free 18-64 YRS Influenza Virus 2019-07-04 Completed [facility] y of Vaccine 00:00:00 [facility] Influenza Virus 2019-07-04 Completed [facility] y of Vaccine [facility] 00:00:00 [place] [facility], Preserv and ABX Branc h Free 18-64 YRS Influenza Virus 2019-07-04 Completed [facility] y of Vaccine 00:00:00 [facility] Influenza Virus 2019-07-04 Completed [facility] y of Vaccine [facility] 00:00:00 [place] [facility], Preserv and ABX Branc h Free 18-64 YRS Influenza Virus 2019-07-04 Completed [facility] y of Vaccine 00:00:00 [facility] Influenza Virus 2019-07-04 Completed [facility] y of Vaccine Re[facility] 00:00:00 [place] [facility], Preserv and ABX Branc h Free 18-64 YRS Influenza Virus 2019-07-04 Completed [facility] y of Vaccine 00:00:00 [facility] Influenza Virus 2019-07-04 Completed [facility] y of Vaccine [facility] 00:00:00 [place] [facility], Preserv and ABX Branc h Free 18-64 YRS Influenza Virus 2019-07-04 Completed [facility] y of Vaccine 00:00:00 [facility] Influenza Virus 2019-07-04 Completed [facility] y of Vaccine [facility] 00:00:00 [place] [facility], Preserv and ABX Branc h Free 18-64 YRS Influenza Virus 2019-07-04 Completed [facility] y of Vaccine 00:00:00 [facility] Influenza Virus 2019-07-04 Completed [facility] y of Vaccine [facility] 00:00:00 [place] [facility], Preserv and ABX Branc h Free 18-64 YRS Influenza Virus 2019-07-04 Completed [facility] y of Vaccine 00:00:00 [facility] Influenza Virus 2019-07-04 Completed [facility] y of Vaccine [facility] 00:00:00 [place] [facility], Preserv and ABX Branc h Free 18-64 YRS Influenza Virus 2019-07-04 Completed [facility] of Vaccine 00:00:00 [facility] Influenza Virus 2019-07-04 Completed [facility] y of Vaccine [facility] 00:00:00 [place] [facility], Preserv and ABX Branc h Free 18-64 YRS Influenza Virus 2019-07-04 Completed [facility] y of Vaccine 00:00:00 [facility] Influenza Virus 2019-07-04 Completed [facility] y of Vaccine [facility] 00:00:00 [place] [facility], Preserv and ABX Branc h Free 18-64 YRS Influenza Virus 2019-07-04 Completed [facility] of Vaccine 00:00:00 [facility] Influenza Virus 2019-07-04 Completed [facility] y of Vaccine [facility] 00:00:00 [place] [facility], Preserv and ABX Branc h Free 18-64 YRS Influenza Virus 2019-07-04 Completed [facility] y of Vaccine 00:00:00 [facility] Influenza Virus 2019-07-04 Completed [facility] y of Vaccine [facility] 00:00:00 [place] [facility], Preserv and ABX Branc h Free 18-64 YRS Influenza Virus 2019-07-04 Completed [facility] of Vaccine 00:00:00 [facility] Influenza Virus 2019-07-04 Completed [facility] y of Vaccine [facility] 00:00:00 [place] [facility], Preserv and ABX Branc h Free 18-64 YRS Influenza Virus 2019-07-04 Completed [facility] of Vaccine 00:00:00 [facility] Influenza Virus 2019-07-04 Completed [facility] y of Vaccine [facility] 00:00:00 [facility], Preserv and ABX Branc h Free 18-64 YRS Influenza Virus 2019-07-04 Completed [facility]:00:00 [facility] Influenza Virus 2019-07-04 Completed [facility] Re[facility] Quad 00:00:00 [facility], Preserv and ABX Branc h Free 18-64 YRS Influenza Virus 2019-07-04 Completed [facility] 00:00:00 [facility] Influenza Virus 2019-07-04 Completed [facility]ine [facility] Quad 00:00:00 [facility], Preserv and ABX Branc h Free 18-64 YRS Influenza Virus 2019-07-04 Completed [facility]ine 00:00:00 [facility] Influenza Virus 2019-07-04 Completed [facility]ine Re[facility] Quad 00:00:00 [facility], Preserv and ABX Branc h Free 18-64 YRS Influenza Virus 2019-07-04 Completed [facility]ine 00:00:00 [facility] Influenza Virus 2019-07-04 Completed [facility] Vaccine Re[facility] Quad 00:00:00 [facility], Preserv and ABX Branc h Free 18-64 YRS Influenza Virus 2019-07-04 Completed [facility]ine 00:00:00 [facility] Influenza Virus 2019-07-04 Completed [facility] Vaccine Recomb Quad 00:00:00 [facility], Preserv and ABX Branc h Free 18-64 YRS Influenza Virus 2019-07-04 Completed [facility]ine 00:00:00 [facility] Influenza Virus 2019-07-04 Completed [facility] Vaccine Recomb Quad 00:00:00 [facility], Preserv and ABX Branc h Free 18-64 YRS Influenza Virus 2019-07-04 Completed [facility] Vaccine 00:00:00 [facility] Influenza Virus 2019-07-04 Completed [facility] Vaccine [facility] Quad 00:00:00 [facility], Preserv and ABX Branc h Free 18-64 YRS Influenza Virus 2019-07-04 Completed [facility] Vaccine 00:00:00 [facility] Influenza Virus 2019-07-04 Completed [facility] Vaccine [facility] Quad 00:00:00 [facility], Preserv and ABX Branc h Free 18-64 YRS Influenza Virus 2019-07-04 Completed [facility] Vaccine 00:00:00 [facility] Influenza Virus 2019-07-04 Completed [facility] Vaccine [facility] Quad 00:00:00 [facility], Preserv and ABX Branc h Free 18-64 YRS Influenza Virus 2019-07-04 Completed [facility] Vaccine 00:00:00 [facility] Influenza Virus 2019-07-04 Completed [facility] Vaccine Re[facility] Quad 00:00:00 [facility], Preserv and ABX Branc h Free 18-64 YRS Influenza Virus 2019-07-04 Completed [facility] Vaccine 00:00:00 [facility] Influenza Virus 2019-07-04 Completed [facility] Vaccine [facility] Quad 00:00:00 [facility], Preserv and ABX Branc h Free 18-64 YRS Influenza Virus 2019-07-04 Completed [facility]ine 00:00:00 [facility] Influenza Virus 2019-07-04 Completed [facility] Vaccine [facility] 00:00:00 [facility], Preserv and ABX Branc h Free 18-64 YRS Influenza Virus 2019-07-04 Completed [facility] Vaccine 00:00:00 [facility] Influenza Virus 2019-07-04 Completed [facility] Vaccine [facility] 00:00:00 [facility], Preserv and ABX Branc h Free 18-64 YRS Influenza Virus 2019-07-04 Completed [facility] Vaccine 00:00:00 [facility] Influenza Virus 2019-07-04 Completed [facility]ine [facility] Quad 00:00:00 [facility], Preserv and ABX Branc h Free 18-64 YRS Influenza Virus 2019-07-04 Completed [facility]ine 00:00:00 [facility] Influenza Virus 2019-07-04 Completed [facility]ine [facility] 00:00:00 [facility], Preserv and ABX Branc h Free 18-64 YRS Influenza Virus 2019-07-04 Completed [facility] Vaccine 00:00:00 [facility] Influenza Virus 2019-07-04 Completed [facility] Vaccine [facility] Quad 00:00:00 [facility], Preserv and ABX Branc h Free 18-64 YRS Influenza Virus 2019-07-04 Completed [facility] Vaccine 00:00:00 [facility] Influenza Virus 2019-07-04 Completed [facility] Vaccine [facility] Quad 00:00:00 [facility], Preserv and ABX Branc h Free 18-64 YRS Influenza Virus 2019-07-04 Completed [facility] Vaccine 00:00:00 [facility] Influenza Virus 2019-07-04 Completed [facility] Vaccine [facility] Quad 00:00:00 [facility], Preserv and ABX Branc h Free 18-64 YRS Influenza Virus 2019-07-04 Completed [facility] Vaccine 00:00:00 [facility] Influenza Virus 2019-07-04 Completed [facility] Vaccine Re[facility] Quad 00:00:00 [facility], Preserv and ABX Branc h Free 18-64 YRS Influenza Virus 2019-07-04 Completed [facility] Vaccine 00:00:00 [facility] Influenza Virus 2019-07-04 Completed [facility]ine [facility] 00:00:00 [facility], Preserv and ABX Branc h Free 18-64 YRS Influenza Virus 2019-07-04 Completed [facility] Vaccine 00:00:00 [facility] Influenza Virus 2019-07-04 Completed [facility] Vaccine [facility] 00:00:00 [facility], Preserv and ABX Branc h Free 18-64 YRS Influenza Virus 2019-07-04 Completed [facility] Vaccine 00:00:00 [facility] Influenza Virus 2019-07-04 Completed [facility] Vaccine [facility] 00:00:00 [facility], Preserv and ABX Branc h Free 18-64 YRS Influenza Virus 2019-07-04 Completed [facility] Vaccine 00:00:00 [facility] Influenza Virus 2019-07-04 Completed [facility] Vaccine [facility] Quad 00:00:00 [facility], Preserv and ABX Branc h Free 18-64 YRS Influenza Virus 2019-07-04 Completed [facility]ine 00:00:00 [facility] Influenza Virus 2019-07-04 Completed [facility] Vaccine [facility] 00:00:00 [facility], Preserv and ABX Branc h Free 18-64 YRS Influenza Virus 2019-07-04 Completed [facility] Vaccine 00:00:00 [facility] Influenza Virus 2019-07-04 Completed [facility] Vaccine [facility] 00:00:00 [facility], Preserv and ABX Branc h Free 18-64 YRS Influenza Virus 2019-07-04 Completed [facility]ine 00:00:00 [facility] Influenza Virus 2019-07-04 Completed [facility] Vaccine [facility] 00:00:00 [facility], Preserv and ABX Branc h Free 18-64 YRS Influenza Virus 2019-07-04 Completed [facility] Vaccine 00:00:00 [facility] Influenza Virus 2019-07-04 Completed [facility] Vaccine [facility] 00:00:00 [facility], Preserv and ABX Branc h Free 18-64 YRS Influenza Virus 2019-07-04 Completed [facility] Vaccine 00:00:00 [facility] Influenza Virus 2019-07-04 Completed [facility] Vaccine [facility] 00:00:00 [facility], Preserv and ABX Branc h Free 18-64 YRS Influenza Virus 2019-07-04 Completed [facility]ine 00:00:00 [facility] Influenza Virus 2019-07-04 Completed [facility]ine [facility] Quad 00:00:00 [facility], Preserv and ABX Branc h Free 18-64 YRS Influenza Virus 2019-07-04 Completed [facility] Vaccine 00:00:00 [facility] Influenza Virus 2019-07-04 Completed [facility] Vaccine Re[facility] Quad 00:00:00 [facility], Preserv and ABX Branc h Free 18-64 YRS Influenza Virus 2019-07-04 Completed [facility]ine 00:00:00 [facility] Influenza Virus 2019-07-04 Completed [facility]ine [facility] 00:00:00 [facility], Preserv and ABX Branc h Free 18-64 YRS Influenza Virus 2019-07-04 Completed [facility] Vaccine 00:00:00 [facility] Influenza Virus 2019-07-04 Completed [facility] Vaccine [facility] Quad 00:00:00 [facility], Preserv and ABX Branc h Free 18-64 YRS Influenza Virus 2019-07-04 Completed [facility] Vaccine 00:00:00 [facility] Influenza Virus 2019-07-04 Completed [facility] Vaccine [facility] Quad 00:00:00 [facility], Preserv and ABX Branc h Free 18-64 YRS Influenza Virus 2019-07-04 Completed [facility] Vaccine 00:00:00 [facility] Influenza Virus 2019-07-04 Completed [facility] Vaccine [facility] Quad 00:00:00 [facility], Preserv and ABX Branc h Free 18-64 YRS Influenza Virus 2019-07-04 Completed [facility] Vaccine 00:00:00 [facility] Influenza Virus 2019-07-04 Completed [facility] Vaccine [facility] 00:00:00 [facility], Preserv and ABX Branc h Free 18-64 YRS Influenza Virus 2019-07-04 Completed [facility] Vaccine 00:00:00 [facility] Influenza Virus 2019-07-04 Completed [facility]ine [facility] 00:00:00 [facility], Preserv and ABX Branc h Free 18-64 YRS Influenza Virus 2019-07-04 Completed [facility]ine 00:00:00 [facility] Influenza Virus 2019-07-04 Completed [facility] Vaccine [facility] 00:00:00 [facility], Preserv and ABX Branc h Free 18-64 YRS Influenza Virus 2019-07-04 Completed [facility] Vaccine 00:00:00 [facility] Influenza Virus 2019-07-04 Completed [facility] Vaccine [facility] 00:00:00 [facility], Preserv and ABX Branc h Free 18-64 YRS Influenza Virus 2019-07-04 Completed [facility]ine 00:00:00 [facility] Influenza Virus 2019-07-04 Completed [facility] Vaccine [facility] Quad 00:00:00 [facility], Preserv and ABX Branc h Free 18-64 YRS Influenza Virus 2019-07-04 Completed [facility] Vaccine 00:00:00 [facility] Influenza Virus 2019-07-04 Completed [facility] Vaccine [facility] Quad 00:00:00 [facility], Preserv and ABX Branc h Free 18-64 YRS Influenza Virus 2019-07-04 Completed [facility]ine 00:00:00 [facility] Influenza Virus 2019-07-04 Completed [facility] Vaccine Recomb Quad 00:00:00 [facility], Preserv and ABX Branc h Free 18-64 YRS Influenza Virus 2019-07-04 Completed [facility] Vaccine 00:00:00 [facility] Influenza Virus 2019-07-04 Completed [facility] Vaccine Recomb Quad 00:00:00 [facility], Preserv and ABX Branc h Free 18-64 YRS Influenza Virus 2019-07-04 Completed [facility] Vaccine 00:00:00 [facility] Influenza Virus 2019-07-04 Completed [facility] Vaccine Re[facility] Quad 00:00:00 [facility], Preserv and ABX Branc h Free 18-64 YRS Influenza Virus 2019-07-04 Completed [facility] Vaccine 00:00:00 [facility] Influenza Virus 2019-07-04 Completed [facility] Vaccine Re[facility] Quad 00:00:00 [facility], Preserv and ABX Branc h Free 18-64 YRS Influenza Virus 2019-07-04 Completed [facility] Vaccine 00:00:00 [facility] Influenza Virus 2019-07-04 Completed [facility] Vaccine Re[facility] Quad 00:00:00 [facility], Preserv and ABX Branc h Free 18-64 YRS Influenza Virus 2019-07-04 Completed [facility] Vaccine 00:00:00 [facility] Influenza Virus 2019-07-04 Completed [facility] Vaccine Re[facility] Quad 00:00:00 [facility], Preserv and ABX Branc h Free 18-64 YRS Influenza Virus 2019-07-04 Completed [facility] Vaccine 00:00:00 [facility] Influenza Virus 2019-07-04 Completed [facility] Vaccine Re[facility] Quad 00:00:00 [facility], Preserv and ABX Branc h Free 18-64 YRS Influenza Virus 2019-07-04 Completed [facility] Vaccine 00:00:00 [facility] Influenza Virus 2019-07-04 Completed [facility] Vaccine Re[facility] Quad 00:00:00 [facility], Preserv and ABX Branc h Free 18-64 YRS Influenza Virus 2019-07-04 Completed [facility] Vaccine 00:00:00 [facility] Influenza Virus 2019-07-04 Completed [facility] Vaccine [facility] Quad 00:00:00 [facility], Preserv and ABX Branc h Free 18-64 YRS Influenza Virus 2019-07-04 Completed [facility] Vaccine 00:00:00 [facility] Influenza Virus 2019-07-04 Completed [facility] Vaccine [facility] Quad 00:00:00 [facility], Preserv and ABX Branc h Free 18-64 YRS Influenza Virus 2018-06-30 Completed [facility] Vaccine Quad IM 3+ 00:00:00 [facility] Influenza Virus 2018-06-30 Completed [facility] Vaccine Quad IM 3+ 00:00:00 [facility] Influenza Virus 2018-06-30 Completed [facility] Vaccine Quad IM 3+ 00:00:00 [facility] Influenza Virus 2018-06-30 Completed [facility] Vaccine Quad IM 3+ 00:00:00 [facility] Influenza Virus 2018-06-30 Completed [facility] Vaccine Quad IM 3+ 00:00:00 [facility] Influenza Virus 2018-06-30 Completed [facility] Vaccine Quad IM 3+ 00:00:00 [facility] Influenza Virus 2018-06-30 Completed [facility] Vaccine Quad IM 3+ 00:00:00 [facility] Influenza Virus 2018-06-30 Completed [facility] Vaccine Quad IM 3+ 00:00:00 [facility] Influenza Virus 2018-06-30 Completed [facility] Vaccine Quad IM 3+ 00:00:00 [facility] Influenza Virus 2018-06-30 Completed [facility] Vaccine Quad IM 3+ 00:00:00 [facility] Influenza Virus 2018-06-30 Completed [facility] Vaccine Quad IM 3+ 00:00:00 [facility] Influenza Virus 2018-06-30 Completed [facility] Vaccine Quad IM 3+ 00:00:00 [facility] Influenza Virus 2018-06-30 Completed [facility] Vaccine Quad IM 3+ 00:00:00 [facility] Influenza Virus 2018-06-30 Completed [facility] Vaccine Quad IM 3+ 00:00:00 [facility] Influenza Virus 2018-06-30 Completed [facility] Vaccine Quad IM 3+ 00:00:00 [facility] Influenza Virus 2018-06-30 Completed [facility] Vaccine Quad IM 3+ 00:00:00 [facility] Influenza Virus 2018-06-30 Completed [facility] Vaccine Quad IM 3+ 00:00:00 [facility] Influenza Virus 2018-06-30 Completed [facility] Vaccine Quad IM 3+ 00:00:00 [facility] Influenza Virus 2018-06-30 Completed [facility] Vaccine Quad IM 3+ 00:00:00 [facility] Influenza Virus 2018-06-30 Completed [facility] Vaccine Quad IM 3+ 00:00:00 [facility] Influenza Virus 2018-06-30 Completed [facility] Vaccine Quad IM 3+ 00:00:00 [facility] Influenza Virus 2018-06-30 Completed [facility] Vaccine Quad IM 3+ 00:00:00 [facility] Influenza Virus 2018-06-30 Completed [facility] Vaccine Quad IM 3+ 00:00:00 [facility] Influenza Virus 2018-06-30 Completed [facility] Vaccine Quad IM 3+ 00:00:00 [facility] Influenza Virus 2018-06-30 Completed [facility] Vaccine Quad IM 3+ 00:00:00 [facility] Influenza Virus 2018-06-30 Completed [facility] Vaccine Quad IM 3+ 00:00:00 [facility] Influenza Virus 2018-06-30 Completed [facility] Vaccine Quad IM 3+ 00:00:00 [facility] Influenza Virus 2018-06-30 Completed [facility] Vaccine Quad IM 3+ 00:00:00 [facility] Influenza Virus 2018-06-30 Completed [facility] Vaccine Quad IM 3+ 00:00:00 [facility] Influenza Virus 2018-06-30 Completed [facility] Vaccine Quad IM 3+ 00:00:00 [facility] Influenza Virus 2018-06-30 Completed [facility] Vaccine Quad IM 3+ 00:00:00 [facility] Influenza Virus 2018-06-30 Completed [facility] Vaccine Quad IM 3+ 00:00:00 [facility] Influenza Virus 2018-06-30 Completed [facility] Vaccine Quad IM 3+ 00:00:00 [facility] Influenza Virus 2018-06-30 Completed [facility] Vaccine Quad IM 3+ 00:00:00 [facility] Influenza Virus 2018-06-30 Completed [facility] Vaccine Quad IM 3+ 00:00:00 [facility] Influenza Virus 2018-06-30 Completed [facility] Vaccine Quad IM 3+ 00:00:00 [facility] Influenza Virus 2018-06-30 Completed [facility] Vaccine Quad IM 3+ 00:00:00 [facility] Influenza Virus 2018-06-30 Completed [facility] Vaccine Quad IM 3+ 00:00:00 [facility] Influenza Virus 2018-06-30 Completed [facility] Vaccine Quad IM 3+ 00:00:00 [facility] Influenza Virus 2018-06-30 Completed [facility] Vaccine Quad IM 3+ 00:00:00 [facility] Influenza Virus 2018-06-30 Completed [facility] Vaccine Quad IM 3+ 00:00:00 [facility] Influenza Virus 2018-06-30 Completed [facility] Vaccine Quad IM 3+ 00:00:00 [facility] Influenza Virus 2018-06-30 Completed [facility] Vaccine Quad IM 3+ 00:00:00 [facility] Influenza Virus 2018-06-30 Completed [facility] Vaccine Quad IM 3+ 00:00:00 [facility] Influenza Virus 2018-06-30 Completed [facility] Vaccine Quad IM 3+ 00:00:00 [facility] Influenza Virus 2018-06-30 Completed [facility] Vaccine Quad IM 3+ 00:00:00 [facility] Influenza Virus 2018-06-30 Completed [facility] Vaccine Quad IM 3+ 00:00:00 [facility] Influenza Virus 2018-06-30 Completed [facility] Vaccine Quad IM 3+ 00:00:00 [facility] Influenza Virus 2018-06-30 Completed [facility] Vaccine Quad IM 3+ 00:00:00 [facility] Influenza Virus 2018-06-30 Completed [facility] Vaccine Quad IM 3+ 00:00:00 [facility] Influenza Virus 2018-06-30 Completed [facility] Vaccine Quad IM 3+ 00:00:00 [facility] Influenza Virus 2018-06-30 Completed [facility] Vaccine Quad IM 3+ 00:00:00 [facility] Influenza Virus 2018-06-30 Completed [facility] Vaccine Quad IM 3+ 00:00:00 [facility] Influenza Virus 2018-06-30 Completed [facility] Vaccine Quad IM 3+ 00:00:00 [facility] Influenza Virus 2018-06-30 Completed [facility] Vaccine Quad IM 3+ 00:00:00 [facility] Influenza Virus 2018-06-30 Completed [facility] Vaccine Quad IM 3+ 00:00:00 [facility] Influenza Virus 2018-06-30 Completed [facility] Vaccine Quad IM 3+ 00:00:00 [facility] Influenza Virus 2018-06-30 Completed [facility] Vaccine Quad IM 3+ 00:00:00 [facility] Influenza Virus 2018-06-30 Completed [facility] Vaccine Quad IM 3+ 00:00:00 [facility] Influenza Virus 2018-06-30 Completed [facility] Vaccine Quad IM 3+ 00:00:00 [facility] Influenza Virus 2018-06-30 Completed [facility] Vaccine Quad IM 3+ 00:00:00 [facility] Influenza Virus 2018-06-30 Completed [facility] Vaccine Quad IM 3+ 00:00:00 [facility] Influenza Virus 2018-06-30 Completed [facility] Vaccine Quad IM 3+ 00:00:00 [facility] Influenza Virus 2018-06-30 Completed [facility] Vaccine Quad IM 3+ 00:00:00 [facility] Influenza Virus 2018-06-30 Completed [facility] Vaccine Quad IM 3+ 00:00:00 [facility] Influenza Virus 2018-06-30 Completed [facility] Vaccine Quad IM 3+ 00:00:00 [facility] Influenza Virus 2018-06-30 Completed [facility] Vaccine Quad IM 3+ 00:00:00 [facility] Influenza Virus 2018-06-30 Completed [facility] Vaccine Quad IM 3+ 00:00:00 [facility] Influenza Virus 2018-06-30 Completed [facility] Vaccine Quad IM 3+ 00:00:00 [facility] Influenza Virus 2018-06-30 Completed [facility] Vaccine Quad IM 3+ 00:00:00 [facility] Influenza Virus 2018-06-30 Completed [facility] Vaccine Quad IM 3+ 00:00:00 [facility] Influenza Virus 2018-06-30 Completed [facility] Vaccine Quad IM 3+ 00:00:00 [facility] Influenza Virus 2018-06-30 Completed [facility] Vaccine Quad IM 3+ 00:00:00 [facility] Influenza Virus 2018-06-30 Completed [facility] Vaccine Quad IM 3+ 00:00:00 [facility] Influenza Virus 2018-06-30 Completed [facility] Vaccine Quad IM 3+ 00:00:00 [facility] Influenza Virus 2018-06-30 Completed [facility] Vaccine Quad IM 3+ 00:00:00 [facility] Influenza Virus 2018-06-30 Completed [facility] Vaccine Quad IM 3+ 00:00:00 [facility] Influenza Virus 2018-06-30 Completed [facility] Vaccine Quad IM 3+ 00:00:00 [facility] Influenza Virus 2018-06-30 Completed [facility] Vaccine Quad IM 3+ 00:00:00 [facility] Influenza Virus 2018-06-30 Completed [facility] Vaccine Quad IM 3+ 00:00:00 [facility] Influenza Virus 2018-06-30 Completed [facility] Vaccine [facility] IM 3+ 00:00:00 [facility] Influenza Virus 2018-06-30 Completed [facility] Vaccine Quad IM 3+ 00:00:00 [facility] Influenza Virus 2018-06-30 Completed [facility] Vaccine [facility] IM 3+ 00:00:00 [facility] Influenza Virus 2018-06-30 Completed [facility] Vaccine Quad IM 3+ 00:00:00 [facility] Influenza Virus 2018-06-30 Completed [facility] Vaccine Quad IM 3+ 00:00:00 [facility] Influenza Virus 2018-06-30 Completed [facility] Vaccine [facility] IM 3+ 00:00:00 [facility] Influenza Virus 2018-06-30 Completed [facility] Vaccine Quad IM 3+ 00:00:00 [facility] Influenza Virus 2018-06-30 Completed [facility] Vaccine Quad IM 3+ 00:00:00 [facility] Influenza Virus 2018-06-30 Completed [facility] Vaccine Quad IM 3+ 00:00:00 [facility] Influenza Virus 2018-06-30 Completed [facility] Vaccine [facility] IM 3+ 00:00:00 [facility] Influenza Virus 2018-06-30 Completed [facility] Vaccine Quad IM 3+ 00:00:00 [facility] Influenza Virus 2018-06-30 Completed [facility] Vaccine Quad IM 3+ 00:00:00 [facility] Influenza Virus 2018-06-30 Completed [facility] Vaccine Quad IM 3+ 00:00:00 [facility] Influenza Virus 2018-06-30 Completed [facility] Vaccine Quad IM 3+ 00:00:00 [facility] Influenza Virus 2018-06-30 Completed [facility] Vaccine Quad IM 3+ 00:00:00 [facility] Influenza Virus 2018-06-30 Completed [facility] Vaccine Quad IM 3+ 00:00:00 [facility] Influenza Virus 2018-06-30 Completed [facility] Vaccine Quad IM 3+ 00:00:00 [facility] Influenza Virus 2018-06-30 Completed [facility] Vaccine Quad IM 3+ 00:00:00 [facility] Influenza Virus 2018-06-30 Completed [facility] Vaccine Quad IM 3+ 00:00:00 [facility] Influenza Virus 2018-06-30 Completed [facility] Vaccine [facility] IM 3+ 00:00:00 [facility] Influenza Virus 2018-06-30 Completed [facility] Vaccine [facility] IM 3+ 00:00:00 [facility] Influenza Virus 2018-06-30 Completed [facility] Vaccine [facility] IM 3+ 00:00:00 [facility] Influenza Virus 2018-06-30 Completed [facility] Vaccine [facility] IM 3+ 00:00:00 [facility] Influenza Virus 2018-06-30 Completed [facility] Vaccine [facility] IM 3+ 00:00:00 [facility] Influenza Virus 2018-06-30 Completed [facility] Vaccine Quad IM 3+ 00:00:00 [facility] Influenza Virus 2018-06-30 Completed [facility] Vaccine [facility] IM 3+ 00:00:00 [facility] Influenza Virus 2018-06-30 Completed [facility] Vaccine [facility] IM 3+ 00:00:00 [facility] Influenza Virus 2018-06-30 Completed [facility] Vaccine [facility] IM 3+ 00:00:00 [facility] Influenza Virus 2018-06-30 Completed [facility]ine [facility] IM 3+ 00:[facility]:00 [facility] [facility] Influenza Virus 2018-06-30 Completed [facility] Vaccine Quad IM 3+ 00:00:00 [facility] Influenza Virus 2018-06-30 Completed [facility] Vaccine Quad IM 3+ 00:00:00 [facility] Influenza Virus 2018-06-30 Completed [facility] Vaccine Quad IM 3+ 00:00:00 [facility] Influenza Virus 2018-06-30 Completed [facility] Vaccine Quad IM 3+ 00:00:00 [facility] Influenza Virus 2018-06-30 Completed [facility] Vaccine Quad IM 3+ 00:00:00 [facility] Influenza Virus 2018-06-30 Completed [facility] Vaccine Quad IM 3+ 00:00:00 [facility] Influenza Virus 2018-06-30 Completed [facility] of Vaccine Quad IM 3+ 00:00:00 [facility] Influenza Virus 2018-06-30 Completed [facility] of Vaccine Quad IM 3+ 00:00:00 [facility] Influenza Virus 2018-06-30 Completed [facility] Vaccine Quad IM 3+ 00:00:00 [facility] Influenza Virus 2018-06-30 Completed [facility] Vaccine Quad IM 3+ 00:00:00 [facility] Influenza Virus 2017-06-15 Completed [facility] of Vaccine Quad ID 18-64 00:00:00 [facility] Influenza Virus 2017-06-15 Completed [facility] of Vaccine Quad ID 18-64 00:00:00 [facility] Influenza Virus 2017-06-15 Completed [facility] of Vaccine Quad ID 18-64 00:00:00 [facility] Influenza Virus 2017-06-15 Completed [facility] of Vaccine Quad ID 18-64 00:00:00 [facility] Influenza Virus 2017-06-15 Completed [facility] of Vaccine Quad ID 18-64 00:00:00 [facility] Influenza Virus 2017-06-15 Completed [facility] of Vaccine Quad ID 18-64 00:00:00 [facility] Influenza Virus 2017-06-15 Completed [facility] of Vaccine Quad ID 18-64 00:00:00 [facility] Influenza Virus 2017-06-15 Completed [facility]it y [...] y of Vaccine Quad ID 18-64 00:00:00 [facility] Influenza Virus 2017-06-15 [...] [facility] Vaccine Quad IM 00:00:00 [place] [facility] Influenza Virus 2016-08-05 Completed [facility] Vaccine Quad IM 00:00:00 [place] [facility] Multi-dose 6[facility] Pneumococcal 13 2016-03-07 Completed [facility] of Conjugate, PCV13 00:00:00 [facility] dical (Prevnar 13) Branch Meningococcal B, OMV 2016-03-07 Completed Univ ersity of 00:00:00 [facility] Pneumococcal 13 2016-03-07 Completed [facility] of Conjugate, PCV13 00:00:00 [facility] dical (Prevnar 13) Branch Meningococcal B, OMV 2016-03-07 Completed [facility] ersity of 00:00:00 [facility] Pneumococcal 13 2016-03-07 Completed [facility] of Conjugate, PCV13 00:00:00 [facility] dical (Prevnar 13) Branch Meningococcal B, OMV 2016-03-07 Completed [facility] ersity of 00:00:00 [facility] Pneumococcal 13 2016-03-07 Completed [facility] Conjugate, PCV13 00:00:00 [place] [facility] (Prevnar 13) [facility] Meningococcal B, [facility] 2016-03-07 Completed [facility] ersity of 00:00:00 [facility] Pneumococcal 13 2016-03-07 Completed [facility] of Conjugate, PCV13 00:00:00 [place] [facility] (Prevnar 13) Branch Meningococcal B, [facility] 2016-03-07 Completed [facility] ersity of 00:00:00 [facility] Pneumococcal 13 2016-03-07 Completed [facility] of Conjugate, PCV13 00:00:00 [place] [facility] (Prevnar 13) Branch Meningococcal B, [facility] 2016-03-07 Completed Univ ersity of 00:00:00 [facility] Pneumococcal 13 2016-03-07 Completed [facility] of Conjugate, PCV13 00:00:00 [place] [facility] (Prevnar 13) Branch Meningococcal B, [facility] 2016-03-07 Completed [facility] ersity of 00:00:00 [facility] Pneumococcal 13 2016-03-07 Completed [facility] of Conjugate, PCV13 00:00:00 [place] [facility] (Prevnar 13) Branch Meningococcal B, [facility] 2016-03-07 Completed [facility] ersity of 00:00:00 [facility] Pneumococcal 13 2016-03-07 Completed [facility] of Conjugate, PCV13 00:00:00 [place] [facility] (Prevnar 13) Branch Meningococcal B, [facility] 2016-03-07 Completed [facility] ers[facility] of 00:00:00 [facility] Pneumococcal 13 2016-03-07 Completed [facility] of Conjugate, PCV13 00:00:00 [place] [facility] (Prevnar 13) Branch Meningococcal B, [facility] 2016-03-07 Completed [facility] ersity of 00:00:00 [facility] Pneumococcal 13 2016-03-07 Completed [facility] of Conjugate, PCV13 00:00:00 [place] [facility] (Prevnar 13) Branch Meningococcal B, [facility] 2016-03-07 Completed [facility] ersity of 00:00:00 [facility] Pneumococcal 13 2016-03-07 Completed [facility] of Conjugate, PCV13 00:00:00 [place] [facility] (Prevnar 13) Branch Meningococcal B, [facility] 2016-03-07 Completed [facility] ersity of 00:00:00 [facility] Pneumococcal 13 2016-03-07 Completed [facility] of Conjugate, PCV13 00:00:00 [place] [facility] (Prevnar 13) Branch Meningococcal B, [facility] 2016-03-07 Completed [facility] ersity of 00:00:00 [facility] Pneumococcal 13 2016-03-07 Completed [facility] of Conjugate, PCV13 00:00:00 [place] [facility] (Prevnar 13) Branch Meningococcal B, [facility] 2016-03-07 Completed [facility] ers[facility] of 00:00:00 [facility] Pneumococcal 13 2016-03-07 Completed [facility] of Conjugate, PCV13 00:00:00 [place] [facility] (Prevnar 13) Branch Meningococcal B, [facility] 2016-03-07 Completed [facility] ersity of 00:00:00 [facility] Pneumococcal 13 2016-03-07 Completed [facility] of Conjugate, PCV13 00:00:00 [place] [facility] (Prevnar 13) Branch Meningococcal B, [facility] 2016-03-07 Completed [facility] ers[facility] of 00:00:00 [facility] Pneumococcal 13 2016-03-07 Completed [facility] of Conjugate, PCV13 00:00:00 [place] [facility] (Prevnar 13) Branch Meningococcal B, [facility] 2016-03-07 Completed [facility] ersity of 00:00:00 [facility] Pneumococcal 13 2016-03-07 Completed [facility] of Conjugate, PCV13 00:00:00 [place] [facility] (Prevnar 13) Branch Meningococcal B, [facility] 2016-03-07 Completed [facility] ers[facility] of 00:00:00 [facility] Pneumococcal 13 2016-03-07 Completed [facility] of Conjugate, PCV13 00:00:00 [place] [facility] (Prevnar 13) Branch Meningococcal B, [facility] 2016-03-07 Completed [facility] ersity of 00:00:00 [facility] Pneumococcal 13 2016-03-07 Completed [facility] of Conjugate, PCV13 00:00:00 [place] [facility] (Prevnar 13) Branch Meningococcal B, [facility] 2016-03-07 Completed [facility] ersity of 00:00:00 [facility] Pneumococcal 13 2016-03-07 Completed [facility] of Conjugate, PCV13 00:00:00 [place] [facility] (Prevnar 13) Branch Meningococcal B, [facility] 2016-03-07 Completed [facility] ersity of 00:00:00 [facility] Pneumococcal 13 2016-03-07 Completed [facility] of Conjugate, PCV13 00:00:00 [place] [facility] (Prevnar 13) Branch Meningococcal B, [facility] 2016-03-07 Completed [facility] ersity of 00:00:00 [facility] Pneumococcal 13 2016-03-07 Completed [facility] of Conjugate, PCV13 00:00:00 [place] [facility] (Prevnar 13) Branch Meningococcal B, [facility] 2016-03-07 Completed [facility] ersity of 00:00:00 [facility] Pneumococcal 13 2016-03-07 Completed [facility] of Conjugate, PCV13 00:00:00 [place] [facility] (Prevnar 13) Branch Meningococcal B, [facility] 2016-03-07 Completed [facility] ersity of 00:00:00 [facility] Pneumococcal 13 2016-03-07 Completed [facility] of Conjugate, PCV13 00:00:00 [place] [facility] (Prevnar 13) Branch Meningococcal B, [facility] 2016-03-07 Completed [facility] ersity of 00:00:00 [facility] Pneumococcal 13 2016-03-07 Completed [facility] of Conjugate, PCV13 00:00:00 [place] [facility] (Prevnar 13) Branch Meningococcal B, [facility] 2016-03-07 Completed [facility] ersity of 00:00:00 [facility] Pneumococcal 13 2016-03-07 Completed [facility] of Conjugate, PCV13 00:00:00 [place] [facility] (Prevnar 13) Branch Meningococcal B, [facility] 2016-03-07 Completed [facility] ersity of 00:00:00 [facility] Pneumococcal 13 2016-03-07 Completed [facility] of Conjugate, PCV13 00:00:00 [place] [facility] (Prevnar 13) Branch Meningococcal B, [facility] 2016-03-07 Completed [facility] ersity of 00:00:00 [facility] Pneumococcal 13 2016-03-07 Completed [facility] of Conjugate, PCV13 00:00:00 [place] [facility] (Prevnar 13) Branch Meningococcal B, [facility] 2016-03-07 Completed [facility] ersity of 00:00:00 [facility] Pneumococcal 13 2016-03-07 Completed [facility] of Conjugate, PCV13 00:00:00 [place] [facility] (Prevnar 13) Branch Meningococcal B, [facility] 2016-03-07 Completed [facility] ersity of 00:00:00 [facility] Pneumococcal 13 2016-03-07 Completed [facility] of Conjugate, PCV13 00:00:00 [place] [facility] (Prevnar 13) Branch Meningococcal B, V 2016-03-07 Completed [facility] ersity of 00:00:00 [facility] Pneumococcal 13 2016-03-07 Completed [facility] of Conjugate, PCV13 00:00:00 [place] [facility] (Prevnar 13) Branch Meningococcal B, V 2016-03-07 Completed [facility] ers[facility] of 00:00:00 [facility] Pneumococcal 13 2016-03-07 Completed [facility] of Conjugate, PCV13 00:00:00 [place] [facility] (Prevnar 13) Branch Meningococcal B, V 2016-03-07 Completed [facility] ers[facility] of 00:00:00 [facility] Pneumococcal 13 2016-03-07 Completed [facility] of Conjugate, PCV13 00:00:00 [place] [facility] (Prevnar 13) Branch Meningococcal B, V 2016-03-07 Completed [facility] ersity of 00:00:00 [facility] Pneumococcal 13 2016-03-07 Completed [facility] of Conjugate, PCV13 00:00:00 [place] [facility] (Prevnar 13) Branch Meningococcal B, V 2016-03-07 Completed [facility] ers[facility] of 00:00:00 [facility] Pneumococcal 13 2016-03-07 Completed [facility] of Conjugate, PCV13 00:00:00 [place] [facility] (Prevnar 13) Branch Meningococcal B, [facility] 2016-03-07 Completed [facility] ersity of 00:00:00 [facility] Pneumococcal 13 2016-03-07 Completed [facility] of Conjugate, PCV13 00:00:00 [place] [facility] (Prevnar 13) Branch Meningococcal B, V 2016-03-07 Completed [facility] ers[facility] of 00:00:00 [facility] Pneumococcal 13 2016-03-07 Completed [facility] of Conjugate, PCV13 00:00:00 [place] [facility] (Prevnar 13) Branch Meningococcal B, [facility] 2016-03-07 Completed [facility] ersity of 00:00:00 [facility] Pneumococcal 13 2016-03-07 Completed [facility] of Conjugate, PCV13 00:00:00 [place] [facility] (Prevnar 13) Branch Meningococcal B, V 2016-03-07 Completed [facility] ers[facility] of 00:00:00 [facility] Pneumococcal 13 2016-03-07 Completed [facility] of Conjugate, PCV13 00:00:00 [place] [facility] (Prevnar 13) Branch Meningococcal B, V 2016-03-07 Completed [facility] ers[facility] of 00:00:00 [facility] Pneumococcal 13 2016-03-07 Completed [facility] of Conjugate, PCV13 00:00:00 [place] [facility] (Prevnar 13) Branch Meningococcal B, V 2016-03-07 Completed [facility] ers[facility] of 00:00:00 [facility] Pneumococcal 13 2016-03-07 Completed [facility] of Conjugate, PCV13 00:00:00 [place] [facility] (Prevnar 13) Branch Meningococcal B, V 2016-03-07 Completed [facility] ers[facility] of 00:00:00 [facility] Pneumococcal 13 2016-03-07 Completed [facility] of Conjugate, PCV13 00:00:00 [place] [facility] (Prevnar 13) Branch Meningococcal B, V 2016-03-07 Completed [facility] ers[facility] of 00:00:00 [facility] Pneumococcal 13 2016-03-07 Completed [facility] of Conjugate, PCV13 00:00:00 [place] [facility] (Prevnar 13) Branch Meningococcal B, [facility] 2016-03-07 Completed [facility] ers[facility] of 00:00:00 [facility] Pneumococcal 13 2016-03-07 Completed [facility] of Conjugate, PCV13 00:00:00 [place] [facility] (Prevnar 13) Branch Meningococcal B, [facility] 2016-03-07 Completed [facility] ers[facility] of 00:00:00 [facility] Pneumococcal 13 2016-03-07 Completed [facility] of Conjugate, PCV13 00:00:00 [place] [facility] (Prevnar 13) Branch Meningococcal B, [facility] 2016-03-07 Completed [facility] ers[facility] of 00:00:00 [facility] Pneumococcal 13 2016-03-07 Completed [facility] of Conjugate, PCV13 00:00:00 [place] [facility] (Prevnar 13) Branch Meningococcal B, [facility] 2016-03-07 Completed [facility] ers[facility] of 00:00:00 [facility] Pneumococcal 13 2016-03-07 Completed [facility] of Conjugate, PCV13 00:00:00 [place] [facility] (Prevnar 13) Branch Meningococcal B, [facility] 2016-03-07 Completed [facility] ers[facility] of 00:00:00 [facility] Pneumococcal 13 2016-03-07 Completed [facility] of Conjugate, PCV13 00:00:00 [place] [facility] (Prevnar 13) Branch Meningococcal B, [facility] 2016-03-07 Completed [facility] ers[facility] of 00:00:00 [facility] Pneumococcal 13 2016-03-07 Completed [facility] of Conjugate, PCV13 00:00:00 [place] [facility] (Prevnar 13) Branch Meningococcal B, V 2016-03-07 Completed [facility] ers[facility] of 00:00:00 [facility] Pneumococcal 13 2016-03-07 Completed [facility] y of Conjugate, PCV13 00:00:00 [place] [facility] (Prevnar 13) Branch Meningococcal B, V 2016-03-07 Completed [facility] ers[facility] of 00:00:00 [facility] Pneumococcal 13 2016-03-07 Completed [facility] of Conjugate, PCV13 00:00:00 [place] [facility] (Prevnar 13) Branch Meningococcal B, [facility] 2016-03-07 Completed [facility] ersity of 00:00:00 [facility] Pneumococcal 13 2016-03-07 Completed [facility] of Conjugate, PCV13 00:00:00 [place] [facility] (Prevnar 13) Branch Meningococcal B, [facility] 2016-03-07 Completed [facility] ersity of 00:00:00 [facility] Pneumococcal 13 2016-03-07 Completed [facility] of Conjugate, PCV13 00:00:00 [place] [facility] (Prevnar 13) Branch Meningococcal B, [facility] 2016-03-07 Completed [facility] ers[facility] of 00:00:00 [facility] Pneumococcal 13 2016-03-07 Completed [facility] of Conjugate, PCV13 00:00:00 [place] [facility] (Prevnar 13) Branch Meningococcal B, [facility] 2016-03-07 Completed [facility] ersity of 00:00:00 [facility] Pneumococcal 13 2016-03-07 Completed [facility] y of Conjugate, PCV13 00:00:00 [place] [facility] (Prevnar 13) Branch Meningococcal B, [facility] 2016-03-07 Completed [facility] ersity of 00:00:00 [facility] Pneumococcal 13 2016-03-07 Completed [facility] of Conjugate, PCV13 00:00:00 [place] [facility] (Prevnar 13) Branch Meningococcal B, [facility] 2016-03-07 Completed [facility] ersity of 00:00:00 [facility] Pneumococcal 13 2016-03-07 Completed [facility] of Conjugate, PCV13 00:00:00 [place] [facility] (Prevnar 13) Branch Meningococcal B, [facility] 2016-03-07 Completed [facility] ers[facility] of 00:00:00 [facility] Pneumococcal 13 2016-03-07 Completed [facility] of Conjugate, PCV13 00:00:00 [place] [facility] (Prevnar 13) Branch Meningococcal B, V 2016-03-07 Completed [facility] ers[facility] of 00:00:00 [facility] Pneumococcal 13 2016-03-07 Completed [facility] of Conjugate, PCV13 00:00:00 [place] [facility] (Prevnar 13) Branch Meningococcal B, [facility] 2016-03-07 Completed [facility] ers[facility] of 00:00:00 [facility] Pneumococcal 13 2016-03-07 Completed [facility] of Conjugate, PCV13 00:00:00 [place] [facility] (Prevnar 13) Branch Meningococcal B, [facility] 2016-03-07 Completed [facility] ers[facility] of 00:00:00 [facility] Pneumococcal 13 2016-03-07 Completed [facility] of Conjugate, PCV13 00:00:00 [place] [facility] (Prevnar 13) Branch Meningococcal B, [facility] 2016-03-07 Completed [facility] ers[facility] of 00:00:00 [facility] Pneumococcal 13 2016-03-07 Completed [facility] of Conjugate, PCV13 00:00:00 [place] [facility] (Prevnar 13) Branch Meningococcal B, [facility] 2016-03-07 Completed [facility] ers[facility] of 00:00:00 [facility] Pneumococcal 13 2016-03-07 Completed [facility] of Conjugate, PCV13 00:00:00 [place] [facility] (Prevnar 13) Branch Meningococcal B, [facility] 2016-03-07 Completed [facility] ers[facility] of 00:00:00 [facility] Pneumococcal 13 2016-03-07 Completed [facility] of Conjugate, PCV13 00:00:00 [place] [facility] (Prevnar 13) Branch Meningococcal B, [facility] 2016-03-07 Completed [facility] ers[facility] of 00:00:00 [facility] Pneumococcal 13 2016-03-07 Completed [facility] of Conjugate, PCV13 00:00:00 [place] [facility] (Prevnar 13) Branch Meningococcal B, [facility] 2016-03-07 Completed [facility] ers[facility] of 00:00:00 [facility] Pneumococcal 13 2016-03-07 Completed [facility] of Conjugate, PCV13 00:00:00 [place] [facility] (Prevnar 13) Branch Meningococcal B, [facility] 2016-03-07 Completed [facility] ers[facility] of 00:00:00 [facility] Pneumococcal 13 2016-03-07 Completed [facility] of Conjugate, PCV13 00:00:00 [place] [facility] (Prevnar 13) Branch Meningococcal B, V 2016-03-07 Completed [facility] of 00:00:00 [facility] Pneumococcal 13 2016-03-07 Completed [facility] of Conjugate, PCV13 00:00:00 [place] [facility] (Prevnar 13) Branch Meningococcal B, V 2016-03-07 Completed [facility] of 00:00:00 [facility] Pneumococcal 13 2016-03-07 Completed [facility] of Conjugate, PCV13 00:00:00 [place] [facility] (Prevnar 13) Branch Meningococcal B, V 2016-03-07 Completed [facility] ers[facility] of 00:00:00 [facility] Pneumococcal 13 2016-03-07 Completed [facility] of Conjugate, PCV13 00:00:00 [place] [facility] (Prevnar 13) Branch Meningococcal B, V 2016-03-07 Completed [facility] of 00:00:00 [facility] Pneumococcal 13 2016-03-07 Completed [facility] of Conjugate, PCV13 00:00:00 [place] [facility] (Prevnar 13) Branch Meningococcal B, [facility] 2016-03-07 Completed [facility] ers[facility] of 00:00:00 [facility] Pneumococcal 13 2016-03-07 Completed [facility] of Conjugate, PCV13 00:00:00 [place] [facility] (Prevnar 13) Branch Meningococcal B, V 2016-03-07 Completed [facility] of 00:00:00 [facility] Pneumococcal 13 2016-03-07 Completed [facility] of Conjugate, PCV13 00:00:00 [place] [facility] (Prevnar 13) Branch Meningococcal B, V 2016-03-07 Completed [facility] of 00:00:00 [facility] Pneumococcal 13 2016-03-07 Completed [facility] of Conjugate, PCV13 00:00:00 [place] [facility] (Prevnar 13) Branch Meningococcal B, V 2016-03-07 Completed [facility] of 00:00:00 [facility] Pneumococcal 13 2016-03-07 Completed [facility] of Conjugate, PCV13 00:00:00 [place] [facility] (Prevnar 13) Branch Meningococcal B, [facility] 2016-03-07 Completed [facility] ers[facility] of 00:00:00 [facility] Pneumococcal 13 2016-03-07 Completed [facility] of Conjugate, PCV13 00:00:00 [place] [facility] (Prevnar 13) Branch Meningococcal B, [facility] 2016-03-07 Completed [facility] ers[facility] of 00:00:00 [facility] Pneumococcal 13 2016-03-07 Completed [facility] of Conjugate, PCV13 00:00:00 [place] [facility] (Prevnar 13) Branch Meningococcal B, V 2016-03-07 Completed [facility] of 00:00:00 [facility] Pneumococcal 13 2016-03-07 Completed [facility] of Conjugate, PCV13 00:00:00 [place] [facility] (Prevnar 13) Branch Meningococcal B, [facility] 2016-03-07 Completed [facility] of 00:00:00 [facility] Pneumococcal 13 2016-03-07 Completed [facility] of Conjugate, PCV13 00:00:00 [place] [facility] (Prevnar 13) Branch Meningococcal B, [facility] 2016-03-07 Completed [facility] ers[facility] of 00:00:00 [facility] Pneumococcal 13 2016-03-07 Completed [facility] of Conjugate, PCV13 00:00:00 [place] [facility] (Prevnar 13) Branch Meningococcal B, [facility] 2016-03-07 Completed [facility] of 00:00:00 [facility] Pneumococcal 13 2016-03-07 Completed [facility] of Conjugate, PCV13 00:00:00 [place] [facility] (Prevnar 13) Branch Meningococcal B, [facility] 2016-03-07 Completed [facility] ers[facility] of 00:00:00 [facility] Pneumococcal 13 2016-03-07 Completed [facility] of Conjugate, PCV13 00:00:00 [place] [facility] (Prevnar 13) Branch Meningococcal B, [facility] 2016-03-07 Completed [facility] of 00:00:00 [facility] Pneumococcal 13 2016-03-07 Completed [facility] of Conjugate, PCV13 00:00:00 [place] [facility] (Prevnar 13) Branch Meningococcal B, [facility] 2016-03-07 Completed [facility] of 00:00:00 [facility] Pneumococcal 13 2016-03-07 Completed [facility] of Conjugate, PCV13 00:00:00 [place] [facility] (Prevnar 13) Branch Meningococcal B, [facility] 2016-03-07 Completed [facility] of 00:00:00 [facility] Pneumococcal 13 2016-03-07 Completed [facility] of Conjugate, PCV13 00:00:00 [place] [facility] (Prevnar 13) Branch Meningococcal B, V 2016-03-07 Completed [facility] 00:00:00 [facility] Pneumococcal 13 2016-03-07 Completed [facility] of Conjugate, PCV13 00:00:00 [place] [facility] (Prevnar 13) Branch Meningococcal B, V 2016-03-07 Completed [facility] 00:00:00 [facility] Pneumococcal 13 2016-03-07 Completed [facility] of Conjugate, PCV13 00:00:00 [place] [facility] (Prevnar 13) Branch Meningococcal B, [facility] 2016-03-07 Completed [facility] of 00:00:00 [facility] Pneumococcal 13 2016-03-07 Completed [facility] of Conjugate, PCV13 00:00:00 [place] [facility] (Prevnar 13) Branch Meningococcal B, [facility] 2016-03-07 Completed [facility] 00:00:00 [facility] Pneumococcal 13 2016-03-07 Completed [facility] Conjugate, PCV13 00:00:00 [place] [facility] (Prevnar 13) [facility]ococcal B, [facility] [facility] 2016-[facility]-07 Completed [facility] ersity of 00:00:00 [facility] Pneumococcal 13 2016-03-07 Completed Universit y of Conjugate, PCV13 00:00:00 [facility] dical (Prevnar 13) Branch Meningococcal B, [facility] 2016-03-07 Completed Univ ersity of 00:00:00 [facility] Pneumococcal 13 2016-03-07 Completed Universit y of Conjugate, PCV13 00:00:00 [facility] dical (Prevnar 13) Branch Meningococcal B, [facility] 2016-03-07 Completed Univ ersity of 00:00:00 [facility] Pneumococcal 13 2016-03-07 Completed Universit y of Conjugate, PCV13 00:00:00 [place] [facility] (Prevnar 13) [facility] Meningococcal B, [facility] 2016-03-07 Completed Univ ersity of 00:00:00 [facility] Pneumococcal 13 2016-03-07 Completed Universit y of Conjugate, PCV13 00:00:00 [place] [facility] (Prevnar 13) Branch Meningococcal B, [facility] 2016-03-07 Completed Univ ersity of 00:00:00 [facility] Pneumococcal 13 2016-03-07 Completed Universit y of Conjugate, PCV13 00:00:00 [place] [facility] (Prevnar 13) [facility] Meningococcal B, [facility] 2016-03-07 Completed Univ ersity of 00:00:00 [facility] Pneumococcal 13 2016-03-07 Completed Universit y of Conjugate, PCV13 00:00:00 [place] [facility] (Prevnar 13) Branch Meningococcal B, [facility] 2016-03-07 Completed Univ ersity of 00:00:00 [facility] Pneumococcal 13 2016-03-07 Completed Universit y of Conjugate, PCV13 00:00:00 [place] [facility] (Prevnar 13) Branch Meningococcal B, [facility] 2016-03-07 Completed Univ ersity of 00:00:00 [facility] Pneumococcal 13 2016-03-07 Completed Universit y of Conjugate, PCV13 00:00:00 [place] [facility] (Prevnar 13) Branch Meningococcal B, [facility] 2016-03-07 Completed Univ ersity of 00:00:00 [facility] Pneumococcal 13 2016-03-07 Completed Universit y of Conjugate, PCV13 00:00:00 [place] [facility] (Prevnar 13) Branch Meningococcal B, [facility] 2016-03-07 Completed Univ ersity of 00:00:00 [facility] Pneumococcal 13 2016-03-07 Completed Universit y of Conjugate, PCV13 00:00:00 [place] [facility] (Prevnar 13) Branch Meningococcal B, [facility] 2016-03-07 Completed Univ ersity of 00:00:00 [facility] Pneumococcal 13 2016-03-07 Completed Universit y of Conjugate, PCV13 00:00:00 [place] [facility] (Prevnar 13) Branch Meningococcal B, [facility] 2016-03-07 Completed Univ ersity of 00:00:00 [facility] Pneumococcal 13 2016-03-07 Completed Universit y of Conjugate, PCV13 00:00:00 [place] [facility] (Prevnar 13) Branch Meningococcal B, [facility] 2016-03-07 Completed Univ ersity of 00:00:00 [facility] Pneumococcal 13 2016-03-07 Completed Universit y of Conjugate, PCV13 00:00:00 [place] [facility] (Prevnar 13) Branch Meningococcal B, [facility] 2016-03-07 Completed Univ ersity of 00:00:00 [facility] Pneumococcal 13 2016-03-07 Completed Universit y of Conjugate, PCV13 00:00:00 [place] [facility] (Prevnar 13) Branch Meningococcal B, [facility] 2016-03-07 Completed Univ ersity of 00:00:00 [facility] Pneumococcal 13 2016-03-07 Completed Universit y of Conjugate, PCV13 00:00:00 [place] [facility] (Prevnar 13) Branch Meningococcal B, [facility] 2016-03-07 Completed Univ ersity of 00:00:00 [facility] Pneumococcal 13 2016-03-07 Completed Universit y of Conjugate, PCV13 00:00:00 [place] [facility] (Prevnar 13) Branch Meningococcal B, [facility] 2016-03-07 Completed Univ ersity of 00:00:00 [facility] Pneumococcal 13 2016-03-07 Completed Universit y of Conjugate, PCV13 00:00:00 [place] [facility] (Prevnar 13) Branch Meningococcal B, [facility] 2016-03-07 Completed Univ ersity of 00:00:00 [facility] Pneumococcal 13 2016-03-07 Completed Universit y of Conjugate, PCV13 00:00:00 [place] [facility] (Prevnar 13) Branch Meningococcal B, [facility] 2016-03-07 Completed Univ ersity of 00:00:00 [facility] Pneumococcal 13 2016-03-07 Completed Universit y of Conjugate, PCV13 00:00:00 [place] [facility] (Prevnar 13) Branch Meningococcal B, [facility] 2016-03-07 Completed Univ ersity of 00:00:00 [facility] Pneumococcal 13 2016-03-07 Completed Universit y of Conjugate, PCV13 00:00:00 [place] [facility] (Prevnar 13) Branch Meningococcal B, [facility] 2016-03-07 Completed Univ ersity of 00:00:00 [facility] Pneumococcal 13 2016-03-07 Completed Universit y of Conjugate, PCV13 00:00:00 [place] [facility] (Prevnar 13) Branch Meningococcal B, [facility] 2016-03-07 Completed Univ ersity of 00:00:00 [facility] Pneumococcal 13 2016-03-07 Completed Universit y of Conjugate, PCV13 00:00:00 [place] [facility] (Prevnar 13) Branch Meningococcal B, [facility] 2016-03-07 Completed Univ ersity of 00:00:00 [facility] Pneumococcal 13 2016-03-07 Completed Universit y of Conjugate, PCV13 00:00:00 [place] [facility] (Prevnar 13) Branch Meningococcal B, V 2016-03-07 Completed Univ ersity of 00:00:00 [facility] Pneumococcal 13 2016-03-07 Completed Universit y of Conjugate, PCV13 00:00:00 [place] [facility] (Prevnar 13) Branch Meningococcal B, V 2016-03-07 Completed Univ ersity of 00:00:00 [facility] Pneumococcal 13 2016-03-07 Completed Universit y of Conjugate, PCV13 00:00:00 [place] [facility] (Prevnar 13) Branch Meningococcal B, V 2016-03-07 Completed Univ ersity of 00:00:00 [facility] Pneumococcal 13 2016-03-07 Completed Universit y of Conjugate, PCV13 00:00:00 [place] [facility] (Prevnar 13) Branch Meningococcal B, V 2016-03-07 Completed Univ ersity of 00:00:00 [facility] Pneumococcal 13 2016-03-07 Completed Universit y of Conjugate, PCV13 00:00:00 [place] [facility] (Prevnar 13) Branch Meningococcal B, V 2016-03-07 Completed Univ ersity of 00:00:00 [facility] Pneumococcal 13 2016-03-07 Completed Universit y of Conjugate, PCV13 00:00:00 [place] [facility] (Prevnar 13) Branch Meningococcal B, V 2016-03-07 Completed Univ ersity of 00:00:00 [facility] Pneumococcal 13 2016-03-07 Completed Universit y of Conjugate, PCV13 00:00:00 [facility] dical (Prevnar 13) Branch Meningococcal B, [facility] 2016-03-07 Completed Univ ersity of 00:00:00 [facility] Heamophilus Influenza 2015-11-13 Completed Uni versity of B 00:00:00 [facility] Heamophilus Influenza 2015-11-13 Completed Uni versity of B 00:00:00 [facility] Heamophilus Influenza 2015-11-13 Completed Uni versity of B 00:00:00 [facility] Heamophilus Influenza 2015-11-13 Completed Uni versity of B 00:00:00 [facility] Heamophilus Influenza 2015-11-13 Completed Uni versity of B 00:00:00 [facility] Heamophilus Influenza 2015-11-13 Completed Uni versity of B 00:00:00 [facility] Heamophilus Influenza 2015-11-13 Completed Uni versity of B 00:00:00 [facility] Heamophilus Influenza 2015-11-13 Completed Uni versity of B 00:00:00 [facility] Heamophilus Influenza 2015-11-13 Completed Uni versity of B 00:00:00 [facility] Heamophilus Influenza 2015-11-13 Completed Uni versity of B 00:00:00 [facility] Heamophilus Influenza 2015-11-13 Completed Uni versity of B 00:00:00 [facility] Heamophilus Influenza 2015-11-13 Completed Uni versity of B 00:00:00 [facility] Heamophilus Influenza 2015-11-13 Completed Uni versity of B 00:00:00 [facility] Heamophilus Influenza 2015-11-13 Completed Uni versity of B 00:00:00 [facility] Heamophilus Influenza 2015-11-13 Completed Uni versity of B 00:00:00 [facility] Heamophilus Influenza 2015-11-13 Completed Uni versity of B 00:00:00 [facility] Heamophilus Influenza 2015-11-13 Completed Uni versity of B 00:00:00 [facility] Heamophilus Influenza 2015-11-13 Completed Uni versity of B 00:00:00 [facility] Heamophilus Influenza 2015-11-13 Completed Uni versity of B 00:00:00 [facility] Heamophilus Influenza 2015-11-13 Completed Uni versity of B 00:00:00 [facility] Heamophilus Influenza 2015-11-13 Completed Uni versity of B 00:00:00 [facility] Heamophilus Influenza 2015-11-13 Completed Uni versity of B 00:00:00 [facility] Heamophilus Influenza 2015-11-13 Completed Uni versity of B 00:00:00 [facility] Heamophilus Influenza 2015-11-13 Completed Uni versity of B 00:00:00 [facility] Heamophilus Influenza 2015-11-13 Completed Uni versity of B 00:00:00 [facility] Heamophilus Influenza 2015-11-13 Completed Uni versity of B 00:00:00 [facility] Heamophilus Influenza 2015-11-13 Completed Uni versity of B 00:00:00 [facility] Heamophilus Influenza 2015-11-13 Completed Uni versity of B 00:00:00 [facility] Heamophilus Influenza 2015-11-13 Completed Uni versity of B 00:00:00 [facility] Heamophilus Influenza 2015-11-13 Completed Uni versity of B 00:00:00 [facility] Heamophilus Influenza 2015-11-13 Completed Uni versity of B 00:00:00 [facility] Heamophilus Influenza 2015-11-13 Completed Uni versity of B 00:00:00 [facility] Heamophilus Influenza 2015-11-13 Completed Uni versity of B 00:00:00 [facility] Heamophilus Influenza 2015-11-13 Completed Uni versity of B 00:00:00 [facility] Heamophilus Influenza 2015-11-13 Completed Uni versity of B 00:00:00 [facility] Heamophilus Influenza 2015-11-13 Completed Uni versity of B 00:00:00 [facility] Heamophilus Influenza 2015-11-13 Completed Uni versity of B 00:00:00 [facility] Heamophilus Influenza 2015-11-13 Completed Uni versity of B 00:00:00 [facility] Heamophilus Influenza 2015-11-13 Completed Uni versity of B 00:00:00 [facility] Heamophilus Influenza 2015-11-13 Completed Uni versity of B 00:00:00 [facility] Heamophilus Influenza 2015-11-13 Completed Uni versity of B 00:00:00 [facility] Heamophilus Influenza 2015-11-13 Completed Uni versity of B 00:00:00 [facility] Heamophilus Influenza 2015-11-13 Completed Uni versity of B 00:00:00 [facility] Heamophilus Influenza 2015-11-13 Completed Uni versity of B 00:00:00 [facility] Heamophilus Influenza 2015-11-13 Completed Uni versity of B 00:00:00 [facility] Heamophilus Influenza 2015-11-13 Completed Uni versity of B 00:00:00 [facility] Heamophilus Influenza 2015-11-13 Completed Uni versity of B 00:00:00 [facility] Heamophilus Influenza 2015-11-13 Completed Uni versity of B 00:00:00 [facility] Heamophilus Influenza 2015-11-13 Completed Uni versity of B 00:00:00 [facility] Heamophilus Influenza 2015-11-13 Completed Uni versity of B 00:00:00 [facility] Heamophilus Influenza 2015-11-13 Completed Uni versity of B 00:00:00 [facility] Heamophilus Influenza 2015-11-13 Completed Uni versity of B 00:00:00 [facility] Heamophilus Influenza 2015-11-13 Completed Uni versity of B 00:00:00 [facility] Heamophilus Influenza 2015-11-13 Completed Uni versity of B 00:00:00 [facility] Heamophilus Influenza 2015-11-13 Completed Uni versity of B 00:00:00 [facility] Heamophilus Influenza 2015-11-13 Completed Uni versity of B 00:00:00 [facility] Heamophilus Influenza 2015-11-13 Completed Uni versity of B 00:00:00 [facility] Heamophilus Influenza 2015-11-13 Completed Uni versity of B 00:00:00 [facility] Heamophilus Influenza 2015-11-13 Completed Uni versity of B 00:00:00 [facility] Heamophilus Influenza 2015-11-13 Completed Uni versity of B 00:00:00 [facility] Heamophilus Influenza 2015-11-13 Completed Uni versity of B 00:00:00 [facility] Heamophilus Influenza 2015-11-13 Completed Uni versity of B 00:00:00 [facility] Heamophilus Influenza 2015-11-13 Completed Uni versity of B 00:00:00 [facility] Heamophilus Influenza 2015-11-13 Completed Uni versity of B 00:00:00 [facility] Heamophilus Influenza 2015-11-13 Completed Uni versity of B 00:00:00 [facility] Heamophilus Influenza 2015-11-13 Completed Uni versity of B 00:00:00 [facility] Heamophilus Influenza 2015-11-13 Completed Uni versity of B 00:00:00 [facility] Heamophilus Influenza 2015-11-13 Completed Uni versity of B 00:00:00 [facility] Heamophilus Influenza 2015-11-13 Completed Uni versity of B 00:00:00 [facility] Heamophilus Influenza 2015-11-13 Completed Uni versity of B 00:00:00 [facility] Heamophilus Influenza 2015-11-13 Completed Uni versity of B 00:00:00 [facility] Heamophilus Influenza 2015-11-13 Completed Uni versity of B 00:00:00 [facility] Heamophilus Influenza 2015-11-13 Completed Uni versity of B 00:00:00 [facility] Heamophilus Influenza 2015-11-13 Completed Uni versity of B 00:00:00 [facility] Heamophilus Influenza 2015-11-13 Completed Uni versity of B 00:00:00 [facility] Heamophilus Influenza 2015-11-13 Completed Uni versity of B 00:00:00 [facility] Heamophilus Influenza 2015-11-13 Completed Uni versity of B 00:00:00 [facility] Heamophilus Influenza 2015-11-13 Completed Uni versity of B 00:00:00 [facility] Heamophilus Influenza 2015-11-13 Completed Uni versity of B 00:00:00 [facility] Heamophilus Influenza 2015-11-13 Completed Uni versity of B 00:00:00 [facility] Heamophilus Influenza 2015-11-13 Completed Uni versity of B 00:00:00 [facility] Heamophilus Influenza 2015-11-13 Completed Uni versity of B 00:00:00 [facility] Heamophilus Influenza 2015-11-13 Completed Uni versity of B 00:00:00 [facility] Heamophilus Influenza 2015-11-13 Completed Uni versity of B 00:00:00 [facility] Heamophilus Influenza 2015-11-13 Completed Uni versity of B 00:00:00 [facility] Heamophilus Influenza 2015-11-13 Completed Uni versity of B 00:00:00 [facility] Heamophilus Influenza 2015-11-13 Completed Uni versity of B 00:00:00 [facility] Heamophilus Influenza 2015-11-13 Completed Uni versity of B 00:00:00 [facility] Heamophilus Influenza 2015-11-13 Completed Uni versity of B 00:00:00 [facility] Heamophilus Influenza 2015-11-13 Completed Uni versity of B 00:00:00 [facility] Heamophilus Influenza 2015-11-13 Completed Uni versity of B 00:00:00 [facility] Heamophilus Influenza 2015-11-13 Completed Uni versity of B 00:00:00 [facility] Heamophilus Influenza 2015-11-13 Completed Uni versity of B 00:00:00 [facility] Heamophilus Influenza 2015-11-13 Completed Uni versity of B 00:00:00 [facility] Heamophilus Influenza 2015-11-13 Completed Uni versity of B 00:00:00 [facility] Heamophilus Influenza 2015-11-13 Completed Uni versity of B 00:00:00 [facility] Heamophilus Influenza 2015-11-13 Completed Uni versity of B 00:00:00 [facility] Heamophilus Influenza 2015-11-13 Completed Uni versity of B 00:00:00 [facility] Heamophilus Influenza 2015-11-13 Completed Uni versity of B 00:00:00 [facility] Heamophilus Influenza 2015-11-13 Completed Uni versity of B 00:00:00 [facility] Heamophilus Influenza 2015-11-13 Completed Uni versity of B 00:00:00 [facility] Heamophilus Influenza 2015-11-13 Completed Uni versity of B 00:00:00 [facility] Heamophilus Influenza 2015-11-13 Completed Uni versity of B 00:00:00 [facility] Heamophilus Influenza 2015-11-13 Completed Uni versity of B 00:00:00 [facility] Heamophilus Influenza 2015-11-13 Completed Uni versity of B 00:00:00 [facility] Heamophilus Influenza 2015-11-13 Completed Uni versity of B 00:00:00 [facility] Heamophilus Influenza 2015-11-13 Completed Uni versity of B 00:00:00 [facility] Heamophilus Influenza 2015-11-13 Completed Uni versity of B 00:00:00 [facility] Heamophilus Influenza 2015-11-13 Completed Uni versity of B 00:00:00 [facility] Heamophilus Influenza 2015-11-13 Completed Uni versity of B 00:00:00 [facility] Heamophilus Influenza 2015-11-13 Completed Uni versity of B 00:00:00 [facility] Heamophilus Influenza 2015-11-13 Completed Uni versity of B 00:00:00 [facility] Heamophilus Influenza 2015-11-13 Completed Uni versity of B 00:00:00 [facility] Heamophilus Influenza 2015-11-13 Completed Uni versity of B 00:00:00 [facility] Heamophilus Influenza 2015-11-13 Completed Uni versity of B 00:00:00 [facility] Heamophilus Influenza 2015-11-13 Completed Uni versity of B 00:00:00 [facility] Heamophilus Influenza 2015-11-13 Completed [facility] versity of B 00:00:00 [facility] Meningococcal 2015-11-12 Completed University [...] Completed University of Polysaccharide 00:00:00 [place] [facility] (groups A, C, Y and Branc h [...] Completed University of Polysaccharide 00:00:00 [place] [facility] (groups A, C, Y and Branc h [...] (MCV4P) TDAP 2015-10-31 Completed University of 00:00:00 [facility] TDAP 2015-10-31 Completed University of 00:00:00 [facility] TDAP 2015-10-31 Completed University of 00:00:00 [facility] TDAP 2015-10-31 Completed University of 00:00:00 [facility] TDAP 2015-10-31 Completed University of 00:00:00 [facility] TDAP 2015-10-31 Completed University of 00:00:00 [facility] TDAP 2015-10-31 Completed University of 00:00:00 [facility] TDAP 2015-10-31 Completed University of 00:00:00 [facility] TDAP 2015-10-31 Completed University of 00:00:00 [facility] TDAP 2015-10-31 Completed University of 00:00:00 [facility] TDAP 2015-10-31 Completed University of 00:00:00 [facility] TDAP 2015-10-31 Completed University of 00:00:00 [facility] TDAP 2015-10-31 Completed University of 00:00:00 [facility] TDAP 2015-10-31 Completed University of 00:00:00 [facility] TDAP 2015-10-31 Completed University of 00:00:00 [facility] TDAP 2015-10-31 Completed University of 00:00:00 [facility] TDAP 2015-10-31 Completed University of 00:00:00 [facility] TDAP 2015-10-31 Completed University of 00:00:00 [facility] TDAP 2015-10-31 Completed University of 00:00:00 [facility] TDAP 2015-10-31 Completed University of 00:00:00 [facility] TDAP 2015-10-31 Completed University of 00:00:00 [facility] TDAP 2015-10-31 Completed University of 00:00:00 [facility] TDAP 2015-10-31 Completed University of 00:00:00 [facility] TDAP 2015-10-31 Completed University of 00:00:00 [facility] TDAP 2015-10-31 Completed University of 00:00:00 [facility] TDAP 2015-10-31 Completed University of 00:00:00 [facility] TDAP 2015-10-31 Completed University of 00:00:00 [facility] TDAP 2015-10-31 Completed University of 00:00:00 [facility] TDAP 2015-10-31 Completed University of 00:00:00 [facility] TDAP 2015-10-31 Completed University of 00:00:00 [facility] TDAP 2015-10-31 Completed University of 00:00:00 [facility] TDAP 2015-10-31 Completed University of 00:00:00 [facility] TDAP 2015-10-31 Completed University of 00:00:00 [facility] TDAP 2015-10-31 Completed University of 00:00:00 [facility] TDAP 2015-10-31 Completed University of 00:00:00 [facility] TDAP 2015-10-31 Completed University of 00:00:00 [facility] TDAP 2015-10-31 Completed University of 00:00:00 [facility] TDAP 2015-10-31 Completed University of 00:00:00 [facility] TDAP 2015-10-31 Completed [facility] 00:00:00 [facility] TDAP 2015-10-31 Completed [facility] 00:00:00 [facility] TDAP 2015-10-31 Completed [facility] 00:00:00 [facility] TDAP 2015-10-31 Completed [facility] 00:00:00 [facility] TDAP 2015-10-31 Completed [facility] 00:00:00 [facility] TDAP 2015-10-31 Completed [facility] 00:00:00 [facility] TDAP 2015-10-31 Completed [facility] 00:00:00 [facility] TDAP 2015-10-31 Completed [facility] 00:00:00 [facility] TDAP 2015-10-31 Completed [facility] 00:00:00 [facility] TDAP 2015-10-31 Completed [facility] 00:00:00 [facility] TDAP 2015-10-31 Completed [facility] 00:00:00 [facility] TDAP 2015-10-31 Completed [facility] 00:00:00 [facility] TDAP 2015-10-31 Completed [facility] 00:00:00 [facility] TDAP 2015-10-31 Completed [facility] 00:00:00 [facility] TDAP 2015-10-31 Completed [facility] 00:00:00 [facility] TDAP 2015-10-31 Completed [facility] 00:00:00 [facility] TDAP 2015-10-31 Completed [facility] 00:00:00 [facility] TDAP 2015-10-31 Completed [facility] 00:00:00 [facility] TDAP 2015-10-31 Completed [facility] 00:00:00 [facility] TDAP 2015-10-31 Completed [facility] 00:00:00 [facility] TDAP 2015-10-31 Completed [facility] 00:00:00 [facility] TDAP 2015-10-31 Completed [facility] 00:00:00 [facility] TDAP 2015-10-31 Completed [facility] 00:00:00 [facility] TDAP 2015-10-31 Completed [facility] 00:00:00 [facility] TDAP 2015-10-31 Completed [facility] 00:00:00 [facility] TDAP 2015-10-31 Completed [facility] 00:00:00 [facility] TDAP 2015-10-31 Completed [facility] 00:00:00 [facility] TDAP 2015-10-31 Completed [facility] 00:00:00 [facility] TDAP 2015-10-31 Completed [facility] 00:00:00 [facility] TDAP 2015-10-31 Completed [facility] 00:00:00 [facility] TDAP 2015-10-31 Completed [facility] 00:00:00 [facility] TDAP 2015-10-31 Completed [facility] 00:00:00 [facility] TDAP 2015-10-31 Completed [facility] 00:00:00 [facility] TDAP 2015-10-31 Completed [facility] 00:00:00 [facility] TDAP 2015-10-31 Completed [facility] 00:00:00 [facility] TDAP 2015-10-31 Completed [facility] 00:00:00 [facility] TDAP 2015-10-31 Completed [facility] 00:00:00 [facility] TDAP 2015-10-31 Completed [facility] 00:00:00 [facility] TDAP 2015-10-31 Completed [facility] 00:00:00 [facility] TDAP 2015-10-31 Completed [facility] 00:00:00 [facility] TDAP 2015-10-31 Completed [facility] of 00:00:00 [facility] TDAP 2015-10-31 Completed [facility] 00:00:00 [facility] TDAP 2015-10-31 Completed [facility] 00:00:00 [facility] TDAP 2015-10-31 Completed [facility] 00:00:00 [facility] TDAP 2015-10-31 Completed [facility] 00:00:00 [facility] TDAP 2015-10-31 Completed [facility] 00:00:00 [facility] TDAP 2015-10-31 Completed [facility] 00:00:00 [facility] TDAP 2015-10-31 Completed [facility] 00:00:00 [facility] TDAP 2015-10-31 Completed [facility] of 00:00:00 [facility] TDAP 2015-10-31 Completed [facility] 00:00:00 [facility] TDAP 2015-10-31 Completed [facility] 00:00:00 [facility] TDAP 2015-10-31 Completed [facility] 00:00:00 [facility] TDAP 2015-10-31 Completed [facility] 00:00:00 [facility] TDAP 2015-10-31 Completed [facility] 00:00:00 [facility] TDAP 2015-10-31 Completed [facility] 00:00:00 [facility] TDAP 2015-10-31 Completed [facility] 00:00:00 [facility] TDAP 2015-10-31 Completed [facility] 00:00:00 [facility] TDAP 2015-10-31 Completed [facility] 00:00:00 [facility] TDAP 2015-10-31 Completed [facility] 00:00:00 [facility] TDAP 2015-10-31 Completed [facility] 00:00:00 [facility] TDAP 2015-10-31 Completed [facility] 00:00:00 [facility] TDAP 2015-10-31 Completed [facility] 00:00:00 [facility] TDAP 2015-10-31 Completed [facility] 00:00:00 [facility] TDAP 2015-10-31 Completed [facility] 00:00:00 [facility] TDAP 2015-10-31 Completed [facility] 00:00:00 [facility] TDAP 2015-10-31 Completed [facility] 00:00:00 [facility] TDAP 2015-10-31 Completed [facility] 00:00:00 [facility] TDAP 2015-10-31 Completed [facility] 00:00:00 [facility] TDAP 2015-10-31 Completed [facility] 00:00:00 [facility] TDAP 2015-10-31 Completed [facility] of 00:00:00 [facility] TDAP 2015-10-31 Completed [facility] of 00:00:00 [facility] TDAP 2015-10-31 Completed [facility] 00:00:00 [facility] TDAP 2015-10-31 Completed [facility] 00:00:00 [facility] TDAP 2015-10-31 Completed [facility] 00:00:00 [facility] TDAP 2015-10-31 Completed [facility] 00:00:00 [facility] TDAP 2015-10-31 Completed [facility] 00:00:00 [facility] TDAP 2015-10-31 Completed [facility] 00:00:00 [facility] TDAP 2015-10-31 Completed [facility] 00:00:00 [facility] TDAP 2015-10-31 Completed [facility] 00:00:00 [facility] TDAP 2015-10-31 Completed [facility] 00:00:00 [facility] TDAP 2015-10-31 Completed [facility] 00:00:00 [facility] Pneumococcal 2014-04-01 Completed University o f [...] 2013-04-29 Completed University o f Polysaccharide, 00:00:00 [facility] PPSV23 (PNEUMOVAX) [facility] Pneumococcal 2013-04-29 Completed [place] o f Polysaccharide, 00:00:00 [facility] PPSV23 (PNEUMOVAX) [facility] Pneumococcal 2013-04-29 Completed [place] o f Polysaccharide, 00:00:00 [facility] PPSV23 (PNEUMOVAX) [facility] Vital Signs Vital Name Observation Time Observation Value Comments Source Systolic blood 2022-11-18 14:42:00 123 mm[Hg] [facility] Diastolic blood 2022-11-18 14:42:00 82 mm[Hg] Unive rsity of [facility] Heart rate 2022-11-18 14:42:00 109 [facility] Body temperature 2022-11-18 14:42:00 36.72 Melissa [facility] 2022-11-18 14:42:00 18 /min [facility] Body height 2022-11-18 14:42:00 162.6 cm Universi ty [facility] Body weight 2022-11-18 14:42:00 97.523 kg Universi ty [facility] BMI 2022-11-18 14:42:00 36.90 kg/m2 Universi [facility] Heart rate 2022-10-29 21:30:00 91 /min [facility] Respiratory rate 2022-10-29 21:30:00 14 /min [facility] Oxygen saturation in 2022-10-29 21:30:00 98 /min [facility] Arterial blood by [facility] Pulse oximetry Branch Systolic blood 2022-10-29 20:21:00 125 mm[Hg] [facility]iver sity of [facility] Diastolic blood 2022-10-29 20:21:00 79 mm[Hg] Unive rsity [facility] Body temperature 2022-10-29 20:21:00 36.89 Melissa [facility] ersity [facility] Body height 2022-10-29 20:21:00 157.5 cm Universi [facility] Body weight 2022-10-29 20:21:00 94.348 kg Universi ty [facility] BMI 2022-10-29 20:21:00 38.04 kg/m2 [facility]i ty [facility] Systolic blood 2022-10-27 15:21:00 91 mm[Hg] Univer sity of pressure [facility] Diastolic blood 2022-10-27 15:21:00 58 mm[Hg] Unive rsity of pressure [facility] Heart rate 2022-10-27 15:21:00 82 /min [facility]i ty [facility] Body height 2022-10-27 15:21:00 157.5 cm [facility]i [facility] Body weight 2022-10-27 15:21:00 94.394 kg [facility]i [facility] BMI 2022-10-27 15:21:00 38.06 kg/m2 [facility] Oxygen saturation in 2022-10-27 15:21:00 95 /min [facility] of Arterial blood by [place] [facility] HEIGHT 2022-10-22 05:49:00 157.5 cm WEIGHT 2022-10-22 05:49:00 96.48 kg HEIGHT 2022-10-22 05:49:00 157.5 cm WEIGHT 2022-10-22 05:49:00 96.48 kg HEIGHT 2022-10-22 05:49:00 157.5 cm WEIGHT 2022-10-22 05:49:00 96.48 kg Systolic blood 2022-10-19 21:30:00 148 mm[Hg] Univer sity of pressure [facility] Diastolic blood 2022-10-19 21:30:00 89 mm[Hg] Unive rsity of pressure [facility] Heart rate 2022-10-19 21:30:00 115 /min [facility]i ty [facility] Body temperature 2022-10-19 21:30:00 37.17 Melissa Univ ersity [facility] Respiratory rate 2022-10-19 21:30:00 16 /min Univ ersity of [facility] Oxygen saturation in 2022-10-19 21:30:00 97 /min [facility] of Arterial blood by [place] [facility] Body height 2022-10-19 04:03:00 172.7 cm [facility]i [facility] Body weight 2022-10-19 04:03:00 98.884 kg [facility]i ty [facility] BMI 2022-10-19 04:03:00 33.15 kg/m2 [facility] Systolic blood 2022-10-18 16:13:00 102 mm[Hg] Univer sity of [facility] Diastolic blood 2022-10-18 16:13:00 69 mm[Hg] Unive rsity of [facility] Heart rate 2022-10-18 16:13:00 82 /min [facility]i [facility] Body height 2022-10-18 16:13:00 157.5 cm [facility] Body weight 2022-10-18 16:13:00 98.884 kg [facility] BMI 2022-10-18 16:13:00 39.87 kg/m2 [facility] Oxygen saturation in 2022-10-18 16:13:00 99 /min [facility] of [facility]terial blood by [place] [employer] [facility] Systolic blood 2022-10-15 16:05:00 97 mm[Hg] Univer sity of pressure [facility] Diastolic blood 2022-10-15 16:05:00 62 mm[Hg] Unive rsity of [facility] Heart rate 2022-10-15 16:05:00 98 /min [facility] Body temperature 2022-10-15 16:05:00 36.33 Melissa Univ ers[facility] Respiratory rate 2022-10-15 16:05:00 16 /min Univ ersity of [facility] Body height 2022-10-15 16:05:00 157.5 cm [facility] Body weight 2022-10-15 16:05:00 99.791 kg [facility] BMI 2022-10-15 16:05:00 40.24 kg/m2 [facility] Oxygen saturation in 2022-10-15 16:05:00 98 /min University of Arterial blood by [employer] Systolic blood 2022-10-07 19:00:00 125 mm[Hg] Univer sity of [facility] Diastolic blood 2022-10-07 19:00:00 78 mm[Hg] Unive rsity of [facility] Heart rate 2022-10-07 19:00:00 85 /min [facility] Respiratory rate 2022-10-07 19:00:00 18 /min Univ ersity of [facility] Oxygen saturation in 2022-10-07 19:00:00 100 /min University of Arterial blood by [facility] Pulse oximetry Branch Body temperature 2022-10-07 17:09:00 37.28 Melissa Univ ersity of [facility] Body height 2022-10-07 17:09:00 157.5 cm Universi ty [facility] Body weight 2022-10-07 17:09:00 102.059 kg [facility] BMI 2022-10-07 17:09:00 41.15 kg/m2 [facility] Systolic blood 2022-10-07 14:03:00 119 mm[Hg] Univer sity of pressure [facility] Diastolic blood 2022-10-07 14:03:00 81 mm[Hg] Unive rsity of pressure [facility] Heart rate 2022-10-07 14:03:00 104 /min [facility] Body temperature 2022-10-07 14:03:00 36.28 Melissa Univ ersity [facility] Body height 2022-10-07 14:03:00 157.5 cm [facility] Body weight 2022-10-07 14:03:00 102.377 kg [facility] BMI 2022-10-07 14:03:00 41.28 kg/m2 [facility] Oxygen saturation in 2022-10-07 14:03:00 100 /min [facility] of Arterial blood by [facility] Pulse oximetry Branch Systolic blood 2022-09-03 17:29:00 97 mm[Hg] Univer sity of pressure [facility] Diastolic blood 2022-09-03 17:29:00 64 mm[Hg] Unive rsity of pressure [facility] Heart rate 2022-09-03 17:29:00 95 /min [facility]i [facility] Body temperature 2022-09-03 17:29:00 37.17 Melissa Univ ersity of [facility] Body height 2022-09-03 17:29:00 157.5 cm [facility] Body weight 2022-09-03 17:29:00 101.606 kg [facility] BMI 2022-09-03 17:29:00 40.97 kg/m2 [facility] Oxygen saturation in 2022-09-03 17:29:00 96 /min [facility] Arterial blood by [place] [employer] [facility] Systolic blood 2022-08-24 14:41:00 115 mm[Hg] Univer sity of pressure [facility] Diastolic blood 2022-08-24 14:41:00 77 mm[Hg] Unive rsity of pressure [facility] Heart rate 2022-08-24 14:41:00 105 /min [facility]i [facility] Body temperature 2022-08-24 14:41:00 36.61 Melissa Univ ersity [facility] Body weight 2022-08-24 14:41:00 102.967 kg [facility] BMI 2022-08-24 14:41:00 41.52 kg/m2 [facility] Systolic blood 2022-07-27 13:03:00 112 mm[Hg] Univer sity of pressure [facility] Diastolic blood 2022-07-27 13:03:00 75 mm[Hg] Unive rsity of pressure [facility] Heart rate 2022-07-27 13:03:00 98 /min [facility] Body temperature 2022-07-27 13:03:00 36.83 Melissa Univ ersity [facility] Body weight 2022-07-27 13:03:00 102.967 kg [facility] BMI 2022-07-27 13:03:00 41.52 kg/m2 [facility] Oxygen saturation in 2022-07-27 13:03:00 94 /min [facility] of Arterial blood by [facility] Pulse oximetry Branch Systolic blood 2022-06-17 15:45:00 104 mm[Hg] Univer sity of pressure [facility] Diastolic blood 2022-06-17 15:45:00 69 mm[Hg] Unive rsity of pressure [facility] Heart rate 2022-06-17 15:45:00 97 /min [facility] Body height 2022-06-17 15:45:00 157.5 cm [facility] Body weight 2022-06-17 15:45:00 101.878 kg [facility] BMI 2022-06-17 15:45:00 41.08 kg/m2 [facility] Oxygen saturation in 2022-06-17 15:45:00 98 /min [facility] blood by [place] [facility] [facility] Pulse oximetry Branch Systolic blood 2022-06-15 13:01:00 101 mm[Hg] Univer sity of pressure [facility] Diastolic blood 2022-06-15 13:01:00 68 mm[Hg] Unive rsity of pressure [facility] Heart rate 2022-06-15 13:01:00 74 /min [facility] Body temperature 2022-06-15 13:01:00 36.89 Melissa Univ ersity [facility] Body weight 2022-06-15 13:01:00 102.967 kg [facility] BMI 2022-06-15 13:01:00 41.52 kg/m2 [facility] Systolic blood 2022-03-27 12:44:00 131 mm[Hg] Univer sity of pressure [facility] Diastolic blood 2022-03-27 12:44:00 83 mm[Hg] Unive rsity of pressure [facility] Heart rate 2022-03-27 12:44:00 102 /min [facility] Body temperature 2022-03-27 12:44:00 37.11 Melissa Univ ers[facility] Respiratory rate 2022-03-27 12:44:00 18 /min Univ ersity of [facility] Body height 2022-03-27 12:44:00 157.5 cm [facility] Body weight 2022-03-27 12:44:00 96.616 kg [facility] BMI 2022-03-27 12:44:00 38.96 kg/m2 [facility] Oxygen saturation in 2022-03-27 12:44:00 98 /min [facility] Arterial blood by [place] [employer] [facility] Pulse oximetry Branch Systolic blood 2022-03-02 15:40:00 113 mm[Hg] Univer sity of pressure [facility] Diastolic blood 2022-03-02 15:40:00 72 mm[Hg] Unive rsity of pressure [facility] Heart rate 2022-03-02 15:40:00 82 /min [facility]i [facility] Respiratory rate 2022-03-02 15:40:00 16 /min Univ ers[facility] [place] Oxygen saturation in 2022-03-02 15:40:00 97 /min University of Arterial blood by [facility] Pulse oximetry Branch Body temperature 2022-03-02 15:23:00 36.28 Melissa [facility] ersity of [facility] Body weight 2022-02-24 17:00:00 100.245 kg [facility] [place] BMI 2022-02-24 17:00:00 40.42 kg/m2 [facility]i ty [facility] Systolic blood 2022-03-02 15:25:00 98 mm[Hg] Univer sity of pressure [facility] Diastolic blood 2022-03-02 15:25:00 55 mm[Hg] Unive rsity of [facility] Heart rate 2022-03-02 15:25:00 85 /min [facility] [place] Respiratory rate 2022-03-02 15:25:00 18 /min [facility] ers[facility] [place] Oxygen saturation in 2022-03-02 15:25:00 100 /min [facility] of Arterial blood by [facility] Pulse oxim[facility] Branch Body temperature 2022-03-02 15:23:00 36.28 Melissa [facility] ersity of [facility] Body weight 2022-02-24 17:00:00 100.245 kg [facility] [place] BMI 2022-02-24 17:00:00 40.42 kg/m2 [facility] Systolic blood 2022-10-25 10:57:00 120 mm[Hg] [facility] Diastolic blood 2022-10-25 10:57:00 63 mm[Hg] S t [facility] Heart rate 2022-10-25 10:57:00 92 /min [facility] Body temperature 2022-10-25 10:57:00 35.61 Melissa [facility] Respiratory rate 2022-10-25 10:57:00 18 /min [facility] Oxygen saturation in 2022-10-25 10:57:00 100 /min [facility] Arterial blood by Medical Ce [facility] Pulse oximetry Body height 2022-10-22 05:49:00 157.5 cm [facility] Body weight 2022-10-22 05:49:00 96.48 kg [facility] BMI 2022-10-22 05:49:00 38.90 kg/m2 [facility] Procedures Procedure Date / Time Performing Source Performed Clinician ASSIGNMENT OF BENEFITS 2022-11-18 [facility] of 14:08:36 Unassigned, No [facility] AUTHORIZATION FOR RELEASE OF PHI 2022-11-11 [facility] of 06:01:00 Unassigned, No [facility] HB ABO GROUPING 2022-10-29 Shena Perea [place] of 20:53:00 [facility] COMP. METABOLIC PANEL (10398) 2022-10-29 Shena Perea [facility] of 20:52:00 [facility] CBC WITH DIFF 2022-10-29 Lenny [facility] of 20:52:00 [facility] CONSENT/REFUSAL FOR DIAGNOSIS AND 2022-10-29 [facility] of TREATMENT 20:01:41 Unassigned, No [facility] BASIC METABOLIC PANEL$W/EGFR-Q 2022-10-27 Elisha Araujo U niversity of 16:36:00 [facility] POCT-GLUCOSE METER 2022-10-25 Ali, Hiba Tereso [facility] 11:05:00 [facility] POCT-GLUCOSE METER 2022-10-25 Ali, Hiba Tereso [facility] 07:47:00 [facility] BASIC METABOLIC PANEL 2022-10-25 Nalam, [facility]ivia Beth [facility] 03:35:00 [facility] MAGNESIUM 2022-10-25 Nalam, Livia Beth [facility] 03:35:00 [facility] CBC W/PLT COUNT & AUTO 2022-10-25 Nalam, Livia Beth [facility] DIFFERENTIAL 03:35:00 [facility] RETICULOCYTE COUNT 2022-10-[address] [facility] 03:35:00 [facility] LACTATE DEHYDROGENASE (LDH) 2022-10-25 Robbinkmayelau Akd[address] [facility] 03:35:00 [facility] HAPTOGLOBIN 2022-10-25 Nalam, Livia Beth [facility] 03:35:00 [facility] HEPATIC FUNCTION PANEL 2022-10-25 Nalam, Livia Beth [facility] 03:35:00 [facility] CBC W/PLT COUNT & AUTO 2022-10-25 Nalam, Livia Beth [facility] DIFFERENTIAL 03:35:00 [facility] POCT-GLUCOSE METER 2022-10-24 Ali, Hiba Tereso [facility] 23:11:00 [facility] POCT-GLUCOSE METER 2022-10-24 Ali, Hiba Tereso [facility] 17:33:00 [facility] POCT-GLUCOSE METER 2022-10-24 Ali, Hiba Tereso [facility] 11:39:00 [facility] POCT-GLUCOSE METER 2022-10-24 Ali, Hiba Tereso [facility] 07:36:00 [facility] BASIC METABOLIC PANEL 2022-10-24 Nalam, Livia Beth [facility] 03:12:00 [facility] MAGNESIUM 2022-10-24 Nalam, Livia Beth [facility] 03:12:00 [facility] CBC W/PLT COUNT & AUTO 2022-10-24 Nalam, Livia Beth [facility] DIFFERENTIAL 03:12:00 [facility] RETICULOCYTE COUNT 2022-10-24 Eziokwu, [facility]olisa [facility] 03:12:00 [facility] LACTATE DEHYDROGENASE (LDH) 2022-10-24 Eziokwu, [facility]olisa [facility] 03:12:00 [facility] C-REACTIVE PROTEIN 2022-10-24 Nalam, [facility]ivia [facility] 03:12:00 [facility] HAPTOGLOBIN 2022-10-24 Nalam, Livia Beth [facility] 03:12:00 [facility] HEPATIC FUNCTION PANEL 2022-10-24 Nalam, Livia Beth [facility] 03:12:00 [facility] CBC W/PLT COUNT & AUTO 2022-10-24 Nalam, Livia Beth [facility] DIFFERENTIAL 03:12:00 [facility] POCT-GLUCOSE METER 2022-10-23 Ali, Hiba Tereso [facility] 21:50:00 [facility] POCT-GLUCOSE METER 2022-10-23 Ali, Hiba Tereso [facility] 17:24:00 [facility] ANTIBODY IDENTIFICATION 2022-10-23 Nalam, Livia Beth [facility] 12:29:00 [facility] POCT-GLUCOSE METER 2022-10-23 Ali, Hiba Tereso [facility] 12:20:00 [facility] POCT-GLUCOSE METER 2022-10-23 Ali, Hiba Tereso [facility] 09:26:00 [facility] BASIC METABOLIC PANEL 2022-10-23 Nalam, Livia Beth [facility] 04:28:00 [facility] MAGNESIUM 2022-10-23 Nalam, Livia Beht [facility] 04:28:00 [facility] CBC W/PLT COUNT & AUTO 2022-10-23 Nalam, Livia Beth [facility] DIFFERENTIAL 04:28:00 [facility] RETICULOCYTE COUNT 2022-10-23 Eziokwu, [facility]olisa [facility] 04:28:00 [facility] LACTATE DEHYDROGENASE (LDH) 2022-10-23 Eziokwu, [facility]olisa [facility] 04:28:00 [facility] C-REACTIVE PROTEIN 2022-10-23 Nalam, Livia Beth [facility] 04:28:00 [facility] FERRITIN 2022-10-23 Nalam, Livia Beth [facility] 04:28:00 [facility] HAPTOGLOBIN 2022-10-23 Nalam, Livia Beth [facility] 04:28:00 [facility] HEPATIC FUNCTION PANEL 2022-10-23 Nalam, Livia Beth [facility] 04:28:00 [facility] HEMOGLOBIN A1C 2022-10-23 Nalam, Livia Beth [facility] 04:28:00 [facility] CBC W/PLT COUNT & AUTO 2022-10-23 Nalam, Livia Beth [facility] DIFFERENTIAL 04:28:00 [facility] ABORH, MANUAL 2022-10-[address] [facility] 02:02:00 [facility] POCT-GLUCOSE METER 2022-10-22 Nalam, Livia Beth [facility] 22:41:00 [facility] XR ABDOMEN/KUB 1 VIEW PORTABLE 2022-10-22 Nalam, Livia Beth [facility] 17:23:00 [facility] D-DIMER 2022-10-22 Nalam, Livia Beth [facility] 16:29:00 [facility] CBC W/PLT COUNT & AUTO 2022-10-22 Nalam, Livia Beth [facility] DIFFERENTIAL 11:33:00 [facility] Center RETICULOCYTE COUNT 2022-10-22 Nalam, Livia Beth [facility] 11:[facility] PERIPHERAL BLOOD SMEAR - HOLD ONLY 2022-10-22 Nalam, Livia Beth [facility] 11:33:00 [facility] DIRECT AHG (ARNOLD)/DIRECT SONDRA 2022-10-22 Nalam, Livia Beth [facility] 11:33:00 [facility] TYPE AND SCREEN, AUTOMATED 2022-10-22 Nalam, Livia Beth [facility] 11:33:00 [facility] CBC W/PLT COUNT & AUTO 2022-10-22 Nalam, Livia Beth [facility] DIFFER[facility] 11:33:00 [facility] COMPREHENSIVE METABOLIC PANEL 2022-10-22 Nalam, Livia Beth [facility] 11:32:00 [facility] MAGNESIUM 2022-10-22 Nalam, Livia Beth [facility] 11:32:00 [facility] LACTATE DEHYDROGENASE (LDH) 2022-10-22 Nalam, Livia Beth [facility] 11:32:00 [facility] BILIRUBIN, DIRECT 2022-10-22 Nalam, Livia Beth [facility] 11:32:00 [facility] IRON, TIBC, % SAT. (WITHOUT 2022-10-22 Nalam, Livia Beth [facility] FERRITIN) 11:32:00 [facility] FERRITIN 2022-10-22 Nalam, Livia Beth [facility] 11:32:00 [facility] VITAMIN B12 2022-10-22 Nalam, Livia Beth [facility] 11:32:00 [facility] HAPTOGLOBIN 2022-10-22 Nalam, Livia Beth [facility] 11:32:00 [facility] FIBRINOGEN 2022-10-22 Nalam, Livia Beth [facility] 11:31:00 [facility] PT/APTT 2022-10-22 Nalam, Livia Beth [facility] 11:31:00 [facility] EKG-SCANNED 2022-10-22 Provider, Jeff Dealashkan 00:00:00 [facility] COMP. METABOLIC PANEL ([id number]) 2022-10-19 Tina Curtis Un iversity of 11:22:00 [facility] GIARDIA CRYPTOSPORIDIUM AG SCR 2022-10-19 Tina Curtis U niversity of 05:09:00 [facility] FECAL PATHOGENS BY PCR 2022-10-19 [facility] 05:09:00 [facility] CT ABDOMEN PELVIS W CONTRAST 2022-10-18 [facility] niversity of 23:00:00 [facility] POCT TEST 2022-10-18 [facility] of 22:15:00 [facility] LIPASE 2022-10-18 [facility] of 22:08:00 [facility] FREE T4 2022-10-18 [facility] of 22:08:00 [facility] THYROID STIMULATING HORMONE 2022-10-18 [facility] ersity of 22:08:00 [facility] COMP. METABOLIC PANEL ([id number]) 2022-10-18 [facility] of 22:08:00 [facility] CBC WITH DIFF 2022-10-18 [facility] of 22:08:00 [facility] URINALYSIS 2022-10-18 [facility] 22:08:00 [facility] CONSENT/REFUSAL FOR DIAGNOSIS AND 2022-10-18 [facility] 20:52:07 Unassigned, No [facility] URINE CULTURE 2022-10-18 [facility] 17:46:[address] [facility] BASIC METABOLIC PANEL (NA, K, CL, 2022-10-18 [facility] CO2, GLUCOSE, BUN, CREATININE, CA) 17:24:[address] [facility] C-REACTIVE PROTEIN 2022-10-18 Val[facility] 17:24:00 Beckie [facility] POCT URINALYSIS AUTO 2022-10-18 [facility] 16:15:00 [facility] DISCLOSURE AND CONSENT, MEDICAL 2022-10-18 [facility] of AND SURGICAL PROCEDURES 06:01:00 Unassigned, No [facility] AD[facility]ION 2022-10-18 [place] of 06:01:00 Unassigned, No [facility] LACTIC ACID WHOLE BLOOD 2022-10-07 Destiny Oneilli ty of 18:28:00 [facility] LIPASE 2022-10-07 Destiny Oneill [place] of 18:16:00 [facility] COMP. METABOLIC PANEL ([id number]) 2022-10-07 Destiny Oneill iversity of 18:16:00 [facility] CBC WITH DIFF 2022-10-07 Destiny Oneill [place] of 18:16:00 [facility] URINALYSIS 2022-10-07 Destiny Oneill [place] of 18:16:00 [facility] CONSENT/REFUSAL FOR DIAGNOSIS AND 2022-10-07 [facility] 16:58:17 Unassigned, No [facility] POCT HEMOGLOBIN A1C TEST 2022-08-24 Tray Jolly [facility] ity of 00:00:00 [facility] DME/SUPPLY JUSTIFICATION 2022-08-05 [facility] ity of 06:01:00 Unassigned, No [facility] SARS-COV-2 COVID-19 CHRISTELLE-SUCROSE 2022-07-27 Tray Jolly [place] of VACCINE 12 YRS+, BIVALENT 0.3ML, 13:13:29 [facility], (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 sity of 05:01:00 Unassigned, No [facility] DISABILITY/FMLA 2022-07-01 [facility] 05:01:00 Unassigned, No [facility] MR THORACIC SPINE WO CONTRAST 2022-06-30 Brunilda, Crystal Un iversity of 16:22:01 [facility] MR CERVICAL SPINE WO CONTRAST 2022-06-30 Brunilda, Crystal Un iversity of 16:20:35 [facility] CONSENT/REFUSAL FOR DIAGNOSIS AND 2022-06-30 [facility] 14:32:21 Unassigned, No [facility] CONSENT/REFUSAL FOR DIAGNOSIS AND 2022-06-30 [facility] 14:32:20 Unassigned, No [facility] INSURANCE CORRESPONDENCE 2022-06-17 Doctor [facility] of 05:01:00 Unassigned, No [facility] POWER OF PELTS SKINNER 2022-06-01 Doctor [place] of 05:01:00 Unassigned, No [facility] POWER OF PELTS SKINNER 2022-05-13 [facility] of 05:01:00 Unassigned, No [facility] DME/SUPPLY JUSTIFICATION 2022-05-06 Doctor [facility] ity of 05:01:00 Unassigned, No [facility] EMG/NCV 2022-04-08 [facility] of 14:43:00 [facility] CONSENT/REFUSAL FOR DIAGNOSIS AND 2022-03-27 [facility] TREATMENT 12:40:53 Unassigned, No [facility] PHYSICIAN ORDERS 2022-03-19 [facility] 05:01:00 Unassigned, No [facility] COLONOSCOPY (ENDO) 2022-03-02 Rik [facility] of 14:43:32 [facility] COLONOSCOPY (ENDO) 2022-03-02 [facility] of 14:43:32 [facility] COLONOSCOPY 2022-03-02 Márquez, [facility] of 14:02:00 [facility] ESOPHAGOGASTRODUODENOSCOPY 2022-03-02 [facility] ersity of 14:02:00 [facility] EGD (ENDO) 2022-03-02 [facility] of 13:53:24 [facility] EGD (ENDO) 2022-03-02 [facility] of 13:53:24 [facility] POCT GLUCOSE(AGE >30DAYS) 2022-03-02 [facility] ersity of 12:59:00 [facility] POCT GLUCOSE(AGE >30DAYS) 2022-03-02 [facility] ersity of 12:59:00 [facility] POCT GLUCOSE (AUTOMATED) 2022-03-02 M[facility]quez, [facility] sity of 12:58:00 [facility] POCT GLUCOSE (AUTOMATED) 2022-03-02 MárquezJerry [facility]ainiThe [facility] sity of 12:58:00 [facility] POCT TEST 2022-03-02 [facility] [place] of 12:48:00 [facility] POCT TEST 2022-03-02 [facility] of 12:48:00 [facility] DAY SURGERY - ADC 2022-03-02 Doctor [place] of 05:01:00 Unassigned, No [facility] Name Branch DME/SUPPLY JUSTIFICATION 2022-01-04 Doctor [facility] ity of 05:01:00 Unassigned, No [facility] Name Branch DME/SUPPLY JUSTIFICATION 2022-01-04 Doctor Univers ity of 05:01:00 Unassigned, No [facility] DISCLOSURE AND CONSENT, MEDICAL 2021-12-28 [facility] AND SURGICAL PROCEDURES 05:01:00 Unassigned, No [facility] dical Name Branch DISCLOSURE AND CONSENT, MEDICAL 2021-12-28 [facility] AND SURGICAL PROCEDURES 05:01:00 Unassigned, No [facility] dical Name Branch Plan of Care Planned Activity Planned Date Details Comments Source Future Scheduled 2032-03-02 Screening for malignant [facility] Test 00:00:00 neoplasm of colon Medical Ce nter (procedure) [code = 817874275] Future Scheduled 2032-03-02 Screening for malignant [facility] Test 00:00:00 neoplasm of colon Medical Ce nter (procedure) [code = 139676047] Future Scheduled 2032-03-02 Screening for malignant [facility] Test 00:00:00 neoplasm of colon Medical Ce nter (procedure) [code = 747405863] Future Scheduled 2032-03-02 Screening for malignant [facility] Test 00:00:00 neoplasm of colon Medical Ce nter (procedure) [code = 777857144] Future Scheduled 2032-03-02 Screening for malignant [facility] Test 00:00:00 neoplasm of colon Medical Ce nter (procedure) [code = 221284441] Future Scheduled 2032-03-02 Screening for malignant [facility] Test 00:00:00 neoplasm of colon Medical Ce nter (procedure) [code = 077738005] Future Scheduled 2032-03-02 Screening for malignant [facility] Test 00:00:00 neoplasm of colon Medical Ce nter (procedure) [code = 172892977] Future Scheduled 2032-03-02 Screening for malignant [facility] Test 00:00:00 neoplasm of colon Medical Ce nter (procedure) [code = 743719431] Future Scheduled 2032-03-02 Screening for malignant [facility] Test 00:00:00 neoplasm of colon Medical Ce nter (procedure) [code = 896267946] Future Scheduled 2032-03-02 Screening for malignant [facility] Test 00:00:00 neoplasm of colon Medical Ce nter (procedure) [code = 340602558] Future Scheduled 2032-03-02 Screening for malignant [facility] Test 00:00:00 neoplasm of colon Medical Ce nter (procedure) [code = 927216695] Future Scheduled 2032-03-02 Screening for malignant [facility] Test 00:00:00 neoplasm of colon Medical Ce nter (procedure) [code = 529673089] Future Scheduled 2029-08-10 DTAP/TDAP/TD VACCINES CH I [...] Medicare IPPE (WELCOME TO MEDICARE)] Future Scheduled 2021-09-17 COVID-19 VACCINE (4 - [facility]00 Booster for Pfizer Medical C enter series) [code = COVID-19 VACCINE (4 - Booster for Pfizer series)] Future Scheduled 2018 Lipid panel (procedure) [facility] Test 00:00:00 [code = 26379853] Medical Ce nter Future Scheduled 2018 Lipid panel (procedure) [facility] Test 00:00:00 [code = 00755238] Medical Ce nter Future Scheduled 2018 Lipid panel (procedure) [facility] Test 00:00:00 [code = 35912997] Medical Ce nter Future Scheduled 2018 Lipid panel (procedure) [facility] Test 00:00:00 [code = 97048955] Medical Ce nter Future Scheduled 2018 Lipid panel (procedure) [facility] Test 00:00:00 [code = 43157706] Medical Ce nter Future Scheduled 2018 Lipid panel (procedure) [facility] Test 00:00:00 [code = 53841332] Medical Ce nter Future Scheduled 1994 Screening for malignant [facility] Test 00:00:00 neoplasm of cervix Medical C enter (procedure) [code = 107603303] Future Scheduled 1994 Screening for malignant [facility] Test 00:00:00 neoplasm of cervix Medical C enter (procedure) [code = 343500809] Future Scheduled 1994 Screening for malignant [facility] Test 00:00:00 neoplasm of cervix Medical C enter (procedure) [code = 456391239] Future Scheduled 1994 Screening for malignant [facility] Test 00:00:00 neoplasm of cervix Medical C enter (procedure) [code = 285070407] Future Scheduled 1994 Screening for malignant [facility] Test 00:00:00 neoplasm of cervix Medical C enter (procedure) [code = 335585610] Future Scheduled 1994 Screening for malignant [facility] Test 00:00:00 neoplasm of cervix Medical C enter (procedure) [code = 417160821] Future Scheduled 1991 HEPATITIS C SCREENING CH [...] colon Medical Ce nter (procedure) [code = 142033899] Future Scheduled 1973 Screening for malignant [facility] Test 00:00:00 neoplasm of colon Medical Ce nter (procedure) [code = 647693608] Future Scheduled 1973 Sigmoidoscopy [code = [facility] S[facility]oscopy] Medical Cente r Future Scheduled 1973 CT Colonography (combo) [facility] Test 00:00:00 [code = CT Colonography [facility] (combo)] Future Scheduled 1973 Screening for malignant [facility] Test 00:00:00 neoplasm of colon Medical Ce nter (procedure) [code = 496940285] Future Scheduled 1973 Screening for malignant [facility] Test 00:00:00 neoplasm of colon Medical Ce nter (procedure) [code = 083268993] Future Scheduled 1973 Sigmoidoscopy [code = [facility] Sigmoidoscopy] Medical Cente r Future Scheduled 1973 CT Colonography (combo) [facility] Test 00:00:00 [code = CT Colonography [facility] (combo)] Future Scheduled 1973 Screening for malignant [facility] Test 00:00:00 neoplasm of colon Medical Ce nter (procedure) [code = 839697285] Future Scheduled 1973 Screening for malignant [facility] Test 00:00:00 neoplasm of colon Medical Ce nter (procedure) [code = 754326432] Future Scheduled 1973 Sigmoidoscopy [facility]code = [facility] Sigmoidoscopy] Medical Cente r Future Scheduled 1973 CT Colonography (combo) [facility] Test 00:00:00 [code = CT Colonography [facility] (combo)] Future Scheduled 1973 Screening for malignant [facility] Test 00:00:00 neoplasm of colon Medical Ce nter (procedure) [code = 677523557] Future Scheduled 1973 Screening for malignant [facility] Test 00:00:00 neoplasm of colon Medical Ce nter (procedure) [code = 200643089] Future Scheduled 1973 Sigmoidoscopy [facility]code = [facility] ([facility] 00:00:00 [code = CT Colonography [facility] (combo)] Future Scheduled 1973 Screening for malignant [facility] Test 00:00:00 neoplasm of colon Medical Ce nter (procedure) [code = 087710060] Future Scheduled 1973 Screening for malignant [facility] Test 00:00:00 neoplasm of colon Medical Ce nter (procedure) [code = 001767376] Future Scheduled 1973 Sigmoidoscopy [code = [facility] 00:[facility] Sigmoidoscopy] Medical Cente r Future Scheduled 1973 CT Colonography (combo) [facility] 00:00:00 [code = CT Colonography [facility] (combo)] Future Scheduled 1973 Screening for malignant [facility] Test 00:00:00 neoplasm of colon Medical Ce nter (procedure) [code = 598474190] Future Scheduled 1973 Screening for malignant [facility] Test 00:00:00 neoplasm of colon Medical Ce nter (procedure) [code = 553321881] Future Scheduled 1973 Sigmoidoscopy [facility]code = [facility] Sigmoidoscopy] Medical Germaine gutiérrez Encounters Start End Encounter Admission Attending Care Care Encounter Source Date/Time Date/Time Type Type Clinicians Facility Department ID 2022-02-16 [facility] [id number] Univers 10:29:45 CECILE mark [facility] 2021-12-01 Outpatient R LAKESHIA [facility] [id number] Univers 13:05:09 CECILE mark [facility] 2021-11-04 [facility] [id number] Univers 15:43:22 CECILE ity [facility] 2021-07-[address] [facility] [id number] Univers 19:11:28 ity of [facility] 2021-07-[address] [facility] [id number] Univers 10:12:30 ity of [facility] 2021-07-[address] [facility] [id number] Univers 06:35:13 ity of [facility] 2021-07-[address] [facility] [id number] Univers 04:01:19 ity of [facility] 2021-07-[address] [facility] [id number] Univers 12:06:22 ity of [facility] 2021-07-26 [facility] [id number] Univers 11:43:46 ity of [facility] 2023-02-22 2023-02-[address] [facility] [id number] Univers 09:15:00 09:15:00 TRAY itjay [facility] 2023-02-10 2023-02-[address] [facility] [id number] Univers 08:30:00 08:30:00 ity [facility] 2022-11-30 2022-11-30 [facility] [id number] Univers 00:00:00 00:00:00 Wondiful A HEALTH [id number] ity of [place] 4.2.7.2.686 Emanuel as JOLLY?BLEA [id number] [address] MEDICAL OFFICE BUILDING 2022-11-25 2022-11-25 [address] [facility] [id number] Univers 00:00:00 00:00:00 ity of [facility] 2022-11-21 2022-11-24 Inpatient JUDY Lopez MAS [id number] [facility] 12:57:00 14:58:00 Neris 86 [facility] 2022-11-24 2022-11-[address] [facility] [id number] Univers 09:45:00 09:45:00 TRAY ity [facility] 2022-11-21 2022-11-21 Outpatient SHANNAN EstradaCL LABO [id number] [facility] 01:06:00 01:06:00 Neris 52 [facility] 2022-11-18 2022-11-18 Outpatient R MARISELA NAV [facility] [id number] Univers 08:00:00 09:08:00 ity [facility] 2022-11-18 2022-11-18 Office Marisela [facility] [id number] Univers 08:00:00 09:08:00 Visit Goldy GREGORIO [id number] i ty of [place]2.7.[place] PROF[place] [id number] La dical NAL 134 [facility] 2022-11-18 2022-11-18 Orders Doctor BON [id number] Univers 00:00:00 00:00:00 Only Unassigned, GRAYSON 350.1.13.10 ity of [place] [facility] 4.2.7.2.686 Emanuel as [phone] [facility] [address] [place] 2022-11-17 2022-11-17 Reffranchesca Cornelius [facility] [id number] Univers 00:00:00 00:00:00 Maribel GREGORIO 350.1.13.10 ity of [place]2.7.[place] [phone] La dical NAL 204 [facility] 2022-11-16 2022-11-16 Refill Lakeshia [facility] [id number] Univers 00:00:00 00:00:00 Cecile JG 350.1.13.10 i ty of [place] [id number] La gabi BARNEY 188 [facility] 2022-11-11 2022-11-11 Telephone SairaBRANDON campa 1.2.840.114 [id number] Univers 00:00:00 00:00:00 Bon Cook HEALTH 350.1.13.10 i ty of [facility] 4.2.7.2.686 [place] [phone] [facility] [address] 2022-11-11 2022-11-11 Orders Doctor BON 1.2.840.114 [id number] Univers 00:00:00 00:00:00 Only Unassigned, GRAYSON 350.1.13.10 ity of [place] [facility] 4.2.7.2.686 Emanuel as [phone] [facility] [address] 2022-11-09 2022-11-09 Telephone [facility] [id number] Univers 00:00:00 00:00:00 Vik HEALTH 350.1.13.10 it y of [place]2.7.2.686 [place] [facility] [id number] [facility] PRIMARY & [address] SPECIALTY CARE 2022-11-08 2022-11-08 Telephone [facility] 1.2.840.114 [id number] Univers 00:00:00 00:00:00 [facility] 350.1.13.10 it y of [place] 4.2.7.2.686 Emanuel as JOLLY?BLEA [id number] La gabi CHAIREZ [address] [place] MEDICAL OFFICE BUILDING 2022-11-04 2022-11-04 [facility] 1.2.840.114 [id number] Univers 00:00:00 00:00:00 Tray HEALTH 350.1.13.10 it y of [place] 4.2.7.2.686 Emanuel as JOLLY?BLEA [phone] La gabi CHAIREZ [address] [place] MEDICAL OFFICE BUILDING 2022-11-01 2022-11-01 Outpatient [facility] [id number] Univers 14:30:00 14:30:00 TRAY jay [facility] 2022-11-01 2022-11-01 [facility] 1.2.840.114 [id number] Univers 00:00:00 00:00:00 [facility] 350.1.13.10 it y of [place] 4.2.7.2.686 Emanuel as JOLLY?BLEA [id number] [address] 2022-10-29 2022-10-29 Emergency X [facility] ERT [id number] Univers 14:24:00 16:45:00 SHENA flores [facility] 2022-10-29 2022-10-29 Emergency [facility] 1.2.840.114 [id number] Univers 14:24:00 16:45:00 Shena GREGORIO 350.1.13.10 [facility] 4.2.7.2.686 [place] [facility] [id number] [address] 2022-10-29 2022-10-29 Telephone [facility] [id number] Univers 00:00:00 00:00:00 Elisha HEALTH 350.1.13.10 it y of [place] 4.2.7.2.686 Emanuel as JOLLY?BLEA [id number] La gabi [address] 2022-10-29 2022-10-29 Telephone [facility] 1.2.840.114 [id number] Univers 00:00:00 00:00:00 [facility] 350.1.13.10 it y of [place] 4.2.7.2.686 Emanuel as JOLLY?BLEA [id number] La samir[address] 2022-10-29 2022-10-29 Telephone [facility] 1.2.840.114 [id number] Univers 00:00:00 00:00:00 Tray HEALTH 350.1.13.10 it y of [place] 4.2.7.2.686 Emanuel as JOLLY?BLEA [id number] [address] MEDICAL OFFICE BUILDING 2022-10-28 2022-10-28 Telephone Araujo [facility] [id number] Univers 00:00:00 00:00:00 Elisha HEALTH 350.1.13.10 it y of [place] 4.2.7.2.686 Emanuel as JOLLY?BLEA [id number] [address] OFFICE BUILDING 2022-10-28 2022-10-28 Patient Scot [facility] 1.2.840.114 [id number] Univers 00:00:00 00:00:[address] [facility] 350.1.13.10 i ty of [place] 4.2.7.2.686 [place] [facility] [phone] [facility] PRIMARY & [facility] SPECIALTY CARE 2022-10-27 2022-10-[address] [facility] [id number] Univers 09:00:00 10:02:31 ELISHA flores [facility] 2022-10-27 2022-10-27 Office [facility] 1.2.840.114 [id number] Univers 09:00:00 10:02:31 Visit [facility] 350.1.13.10 it y of [place] 4.2.7.2.686 Emanuel as JOLLY?BLEA [phone] [address] OFFICE [facility] 2022-10-27 2022-10-27 Orders BON Araujo 1.2.840.114 [id number] Univers 00:00:00 00:00:00 Only Elisha GRAYSON 350.1.13.[address] [facility] 4.2.7.2.686 Emanuel as [phone] [place] [address] [place] 2022-10-26 2022-10-26 Telephone [facility] 1.2.582.836 [id number] Univers 00:00:00 00:00:00 Elisha HEALTH 350.1.13.10 it y of [place] 4.2.7.2.686 Emanuel as JOLLY?BLEA [phone] [address] MEDICAL OFFICE BUILDING 2022-10-22 2022-10-25 Inpatient ER PANTERA CHAW[facility] Internal [id number] [facility]H 05:22:00 14:24:00 Med 2022-10-22 2022-10-25 Hospital [facility] [id number] [facility] 05:22[facility]00 14:24:00 Encounter Livia Brady, [facility] 2022-10-22 2022-10-25 Hospital [facility] [id number] [facility] 05:22:00 14:24:00 Encounter Livia Brady Brunildaashkan [facility], [facility] 2022-10-22 2022-10-22 Travel [facility] [id number] [facility] 00[facility]:00 [facility] 2022-10-22 2022-10-22 Travel [facility] [id number] [facility] 00[facility]00 [facility] 2022-10-21 2022-10-21 Outpatient Brock MÁRQUEZ [facility] [id number] [facility] 15:45:00 15:45:00 CECILE flores [facility] 2022-10-21 2022-10-21 Telephone [facility] 1.2.840.114 [id number] Univers 00:00:00 00:00:00 [facility] 350.1.13.10 it y of [facility] 4.2.7.2.686 Emanuel as JOLLY?BLEA [phone] [address] MEDICAL OFFICE BUILDING 2022-10-20 2022-10-20 Nurse BON Stark 1.2.840.114 [id number] Univers 00:00:00 00:00:00 Triage Kvng GALICIA 350.1.13.[address] [facility] 4.2.7.2.686 Emanuel as [id number] [address] 2022-10-18 2022-10-19 Emergency Kemal Myers 1.2. 840.114 [id number] Univers 15:07:00 17:48:00 Geovanny Willis 350.1.13.10 ity of [facility] 4.2.7.2.686 [place] [phone] [facility] [address] [place] 2022-10-19 2022-10-19 Refill [facility] 1.2.776.624 [id number] Univers 00:00:00 00:00:00 Vern PRIMARY 350.1.13.10 it y of [facility] 4.2.7.2.686 [place] [id number] La dical [address] [place] 2022-10-18 2022-10-18 Outpatient [facility] [id number] Univers 11:45:00 13:42:03 MARIBEL flores o altagracia [facility] 2022-10-18 2022-10-18 Tonsorial Artist 2, Adc Lab [facility] 1.2.840.114 [id number] Univers 11:45:00 13:42:03 Visit Maribel Cornelius 350.1.13. 10 ity of [place] 4.2.7.2.686 [place] [phone] La dical NAL [address] [facility] 2022-10-18 2022-10-18 Outpatient [facility] [id number] Univers 11:00:00 11:14:47 MARIBEL flores o altagracia [facility] 2022-10-18 2022-10-18 Office [facility] 1.2.840.114 [id number] Univers 11:00:00 11:14:47 Visit aMribel GREGORIO 350.1.13.10 ity of [place] 4.2.7.2.686 [place] [phone] La dical NAL 204 [facility] 2022-10-18 2022-10-18 Orders Doctor BON 1.2.840.114 [id number] Univers 00:00:00 00:00:00 Only Unassigned, GRAYSON 350.1.13.10 ity of [place] [facility] 4.2.7.2.686 Emanuel as [phone] [facility] [address] 2022-10-18 2022-10-18 Telephone [facility] 1.2.840.114 [id number] Univers 00:00:00 00:00:00 [facility] 350.1.13.10 it y of [place] 4.2.7.2.686 Emanuel as JOLLY?BLEA [phone] La gabi CHAIREZ [address] [place] [address] OFFICE [facility] 2022-10-15 2022-10-[address] [facility] [id number] Univers 10:45:00 11:31:42 LAYNE ity [facility] 2022-10-15 2022-10-15 Office Beckie Walsh [facility] 1. 2.840.114 [id number] Univers 10:45:00 11:31:42 Visit Layne Yi SPECIALTY 350.1.13.10 ity of [facility] 4.2.7.2.686 [place] [facility] [phone] La gabi [address] [place] [address] 2022-10-12 2022-10-12 Reffranchesca [facility] 1.2.840.114 [id number] Univers 00:00:00 00:00:00 [facility] 350.1.13.10 it y of [place] [facility] 4.2.7.2.686 Emanuel as JOLLY?BLEA [phone] La gabi [address] OFFICE [facility] 2022-10-07 2022-10-07 Emergency X [facility] ERT [id number] Univers 11:11:00 13:18:00 [facility] 2022-10-07 2022-10-07 Emergency [facility] 1.2.420.780 [id number] Univers 11:11:00 13:18:00 Destiny [facility] 350.1.13.10 i ty of [place].2.7.2.686 [place] [id number] [facility] [address] [place] 2022-10-07 2022-10-07 Office [facility] 1.2.840.114 [id number] Univers 09:45:00 10:00:00 Visit [facility] 350.1.13.10 it y [facility] 4.2.7.2.686 Emanuel as JOLLY?BLEA [phone] La gabi CHAIREZ [address] [place] [address] MEDICAL OFFICE [facility] 2022-10-072022-10-[address] [facility] [id number] Univers 09:45:00 08:37:42 ELISHA flores [facility] 2022-10-04 2022-10-04 [facility] 1.2.840.114 [id number] Univers 00:00:00 00:00:00 [facility] 350.1.13.10 it y of [place] 4.2.7.2.686 Emanuel as JOLLY?BLEA [phone] [address] OFFICE [facility] 2022-09-28 2022-09-[address] [id number] Univers 08:00:00 08:00:00 TRAY flores [facility] 2022-09-10 2022-09-10 Susan [facility] 1.2.840.114 [id number] Univers 00:00:00 00:00:00 [facility] 350.1.13.10 it y of [place] 4.2.7.2.686 Emanuel as JOLLY?BLEA [id number] [address] 2022-09-08 2022-09-08 Eduarda [facility] 1.2.840.114 [id number] Univers 00:00:00 00:00:00 Tray HEALTH 350.1.13.10 it y of [place] 4.2.7.2.686 Emanuel as JOLLY?BLEA [phone] [address] 2022-09-08 2022-09-08 Nurse Delilah OLGUIN 1.2.840.114 [id number] Univers 00:00:00 00:00:00 Triage d, Melony GALICIA 350.1.13.[address] [facility] 4.2.7.2.686 Emanuel as [id number] [address] 2022-09-06 2022-09-06 Susan [facility]PRESBYTERIAN [facility] 1.2.840.114 [id number] Univers 00:00:00 00:00:00 Wondiful A HEALTH 350.1.13.10 ity of [place] 4.2.7.2.686 Emanuel as JOLLY?BLEA [phone] [address] OFFICE [facility] 2022-09-06 2022-09-06 Refill Lakeshia [facility] 1.2.537.823 [id number] Univers 00:00:00 00:00:00 Cecile BYERSCHRISTELLE 350.1.13.10 i ty of [place] 4.2.7.2.686 [place] [id number] La gabi [address] 2022-09-03 2022-09-[address] [facility] [id number] Univers 11:30:00 11:48:06 KAMILLA jay [facility] 2022-09-03 2022-09-03 Office [facility] 1.2.840.114 [id number] [facility] 11:30:00 11:48:06 Visit Kamilla [facility] 350.1.13.10 it y of [facility] 4.2.7.2.686 Emanuel as JOLLY?BLEA [phone] [address] OFFICE [facility] 2022-08-24 2022-08-[address] [facility] [id number] Univers 09:00:00 09:00:00 TRAY [facility] 2022-08-24 2022-08-24 Office [facility] 1.2.840.114 [id number] Univers 09:00:00 09:00:00 Visit Tray [facility] 350.1.13.10 it y of [place] RGEGORIO 4.2.7.2.686 Emanuel as JOLLY?BLEA [id number] [address] OFFICE [facility] 2022-08-24 2022-08-[address] [facility] [id number] Univers 09:00:00 08:53:13 TRAY [facility] 2022-08-24 2022-08-24 Reffranchesca PaulaPRESBYTERIAN [facility] 1.2.840.114 [id number] Univers 00:00:00 00:00:00 Wondiful Bryan HEALTH 350.1.13.10 ity of [place] 4.2.7.2.686 Emanuel as JOLLY?BLEA [phone] [address] OFFICE [facility] 2022-08-22 2022-08-22 Reffranchesca PaulaPRESBYTERIAN [facility] 1.2.840.114 [id number] Univers 00:00:00 00:00:00 Wondiful A HEALTH 350.1.13.10 ity of [facility] 4.2.7.2.686 Emanuel as JOLLY?BLEA [id number] [address] OFFICE [facility] 2022-08-13 2022-08-13 [address] [facility] [id number] Univers 14:00:00 14:00:00 AN [facility] 2022-08-06 2022-08-06 Telephone [facility] 1.2.840.114 [id number] Univers 00:00:00 00:00:00 [facility] 350.1.13.10 it y of [place] [facility] 4.2.7.2.686 Emanuel as JOLLY?BLEA [phone] [address] OFFICE [facility] 2022-08-05 2022-08-05 Orders Doctor BON 1.2.840.114 [id number] Univers 00:00:00 00:00:00 Only Unassigned, GRAYSON 350.1.13.10 ity of [place] [facility] 4.2.7.2.686 Emanuel as [id number] [address] 2022-07-29 2022-07-29 Refill [facility] 1.2.840.114 [id number] Univers 00:00:00 00:00:00 [facility] 350.1.13.10 it y of [place] 4.2.7.2.686 Emanuel as JOLLY?BLEA [id number] [address] OFFICE [facility] 2022-07-27 2022-07-[address] [facility] [id number] Univers 08:00:00 08:25:43 TRAY flores [facility] 2022-07-27 2022-07-27 Office [facility] 1.2.840.114 [id number] Univers 08:00:00 08:25:43 Visit [facility] 350.1.13.10 it y of [place] 4.2.7.2.686 Emanuel as JOLLY?BLEA [phone] La dicroshan KNEY [address] [place] [address] MEDICAL [facility] 2022-07-19 2022-07-19 Orders Doctor BON 1.2.840.114 [id number] Univers 00:00:00 00:00:00 Only Unassigned, GRAYSON 350.1.13.10 ity of [facility] 4.2.7.2.686 Emanuel as [phone] [facility] [address] [place] 2022-07-08 2022-07-08 Reffranchesca JollyPRESBYTER[facility] 1.2.840.114 [id number] Univers 00:00:00 00:00:00 Tray JG 350.1.13.10 i ty of [place] [facility] 4.2.7.2.686 [place] [facility] [id number] La samir[address] 2022-07-07 2022-07-07 Outpatient R STELLA WORLEY [facility] [id number] Univers 00:00:00 00:00:00 STELLA WORLEY y of [facility] 2022-07-01 2022-07-01 Orders Doctor BON 1.2.840.114 [id number] Univers 00:00:00 00:00:00 Only Unassigned, GRAYSON 350.1.13.10 ity of [place] [facility] 4.2.7.2.686 Emanuel as [id number] [address] 2022-06-30 2022-06-30 Outpatient R STELLA WORLEY [facility] [id number] Univers 09:34:33 23:59:00 STELLA WORLEY y of [facility] 2022-06-30 2022-06-30 [facility] Stella Worley [facility] 1.2.840.114 [id number] Univers 09:34:33 23:59:00 Encounter JG 350.1.13.10 ity of [place].2.7.2.686 [place] [facility] [id number] [facility] [address] [place] 2022-06-30 2022-06-30 [facility] Stella Worley [facility] 1.2.840.114 [id number] Univers 09:34:16 23:59:00 Encounter [place] 350.1.13.10 ity of [place] 4.2.7.2.686 [place] [facility] [phone] [facility] [address] [place] 2022-06-30 2022-06-30 Orders Doctor BON 1.2.840.114 [id number] Univers 00:00:00 00:00:00 Only Unassigned, GRAYSON 350.1.13.10 ity of [place] 4.2.7.2.686 Emanuel as [id number] [facility] [address] [place] 2022-06-30 2022-06-30 Telephone Brunilda Stella [facility] 1.2.840.114 [id number] Univers 00:00:00 00:00:00 HEALTH 350.1.13.10 it y of [place] 4.2.7.2.686 [place] [facility] [id number] [address] OFFICE BUILDING 2022-06-24 2022-06-24 Outpatient R STELLA [facility]LEY [facility] [id number] Univers 00:00:00 00:00:00 STELLA WORLEY it y of [facility] 2022-06-24 2022-06-24 Telephone Brunilda Stella [facility] 1.2.840.114 [id number] Univers 00:00:00 00:00:00 HEALTH 350.1.13.10 it y of [place] 4.2.7.2.686 [place] [facility] [id number] [address] OFFICE BUILDING 2022-06-21 2022-06-[address] [facility] [id number] Univers 11:00:00 11:00:00 TRAY ity of [facility] 2022-06-21 2022-06-21 Telephone Rik FLFRANDY 1.2.840.114 [id number] Univers 00:00:00 00:00:00 Tray HEALTH 350.1.13.10 it y of [place] 4.2.7.2.686 Emanuel as JOLLY?BLEA [phone] La gabi [address] MEDICAL OFFICE BUILDING 2022-06-17 2022-06-17 Office Brunilda Stella [facility] 1.2.840.114 [id number] Univers 11:00:00 11:30:00 Visit HEALTH 350.1.13.10 it y of [place] 4.2.7.2.686 [place] barry LYNN [id number] [address] OFFICE BUILDING 2022-06-17 2022-06-17 Outpatient R STELLA WORLEY [facility] [id number] Univers 11:00:00 11:00:00 STELLA WORLEY it y of [facility] 2022-06-17 2022-06-17 Refill Stella Worley [facility] 1.2.840.114 [id number] Univers 00:00:00 00:00:00 HEALTH 350.1.13.10 it y of [place] 4.2.7.2.686 [place] barry LYNN [id number] [address] OFFICE BUILDING 2022-06-17 2022-06-17 Orders Doctor BON 1.2.840.114 [id number] Univers 00:00:00 00:00:00 Only Unassigned, GRAYSON 350.1.13.10 ity of [place] [facility] 4.2.7.2.686 Emanuel as [id number] [address] 2022-06-16 2022-06-16 Telephone [facility] 1.2.840.114 [id number] Univers 00:00:00 00:00:00 [facility] 350.1.13.10 it y of [place]rellbrittnee JG 4.2.7.2.686 Emanuel as JOLLY?BLEA [phone] [address] OFFICE BUILDING 2022-06-15 2022-06-[address] [facility] [id number] Univers 08:00:00 08:25:29 TRAY ity of [facility] 2022-06-15 2022-06-15 Office [facility] 1.2.840.114 [id number] Univers 08:00:00 08:25:29 Visit [facility] 350.1.13.10 it y of [place] BYERSCHRISTELLE 4.2.7.2.686 Emanuel as JOLLY?BLEA [id number] La gabi [address] OFFICE BUILDING 2022-06-14 2022-06-14 Telephone [facility] 1.2.840.114 [id number] Univers 00:00:00 00:00:00 Cecile GREGORIO 350.1.13.10 i ty of [place] 4.2.7.2.686 [place] [id number] La gabi COUNT INCLUDES THE [facility] [address] [facility] 2022-06-11 2022-06-11 Telephone [facility] 1.2.840.114 [id number] Univers 00:00:00 00:00:00 Tray HEALTH 350.1.13.10 it y of [place] 4.2.7.2.686 Emanuel as JOLLY?BLEA [id number] [address] OFFICE [facility] 2022-06-09 2022-06-09 Telephone [facility] 1.2.840.114 [id number] Univers 00:00:00 00:00:00 Tray HEALTH 350.1.13.10 it y of [place] 4.2.7.2.686 Emanuel as JOLLY?BLEA [id number] [address] OFFICE [facility] 2022-06-04 2022-06-04 Stella Barrow [facility] 1.2.840.114 [id number] Univers 00:00:00 00:00:00 HEALTH 350.1.13.10 it y of [place] 4.2.7.2.686 [place] [id number] [address] OFFICE [facility] 2022-06-04 2022-06-04 Telephone Ry Edge [facility] 1.2.840.114 [id number] Univers 00:00:00 00:00:00 HEALTH 350.1.13.10 it y of [place] 4.2.7.2.686 Emanuel as JOLLY?BLEA [id number] [address] OFFICE BUILDING 2022-06-04 2022-06-04 Susan Márquez [facility] 1.2.585.724 [id number] Univers 00:00:00 00:00:00 Cecile GREGORIO 350.1.13.10 i ty of [place] 4.2.7.2.686 [place] [id number] [address] 2022-06-03 2022-06-[address] [facility] [id number] Univers 09:30:00 09:30:00 STELLA WORLEY it y of [facility] 2022-06-02 2022-06-02 Stella Barrow [facility] 1.2.840.114 [id number] Univers 00:00:00 00:00:00 HEALTH 350.1.13.10 it y of [place] 4.2.7.2.686 [place] [id number] [address] OFFICE BUILDING 2022-06-02 2022-06-02 Stella Barrow [facility] 1.2.840.114 [id number] Univers 00:00:00 00:00:00 HEALTH 350.1.13.10 it y of [place] 4.2.7.2.686 [place] [id number] [address] OFFICE [facility] 2022-06-02 2022-06-02 Telephone [facility] 1.2.840.114 96 [id number] Univers 00:00:00 00:00:00 Cecile GREGORIO 350.1.13.10 i ty of [place] 4.2.7.2.686 [place] [id number] La dical COUNT INCLUDES THE [facility] [address] [facility] 2022-06-01 2022-06-01 Orders Doctor BON 1.2.840.114 [id number] Univers 00:00:00 00:00:00 Only Unassigned, GRAYSON 350.1.13.10 ity of [place] [facility] 4.2.7.2.686 Emanuel as [id number] [address] 2022-06-01 2022-06-01 Stella Barrow [facility] 1.2.840.114 96 [id number] Univers 00:00:00 00:00:00 HEALTH 350.1.13.10 it y of [place] 4.2.7.2.686 [place] [id number] [address] OFFICE BUILDING 2022-06-01 2022-06-01 [facility] 1.2.015.076 [id number] Univers 00:00:00 00:00:00 Cecile GREGORIO 350.1.13.10 i ty of [place] 4.2.7.2.686 [place] ESS[place] [id number] La gabi COUNT INCLUDES THE [facility] [address] [facility] 2022-05-28 2022-05-28 Refill Rik [facility] 1.2.840.114 [id number] Univers 00:00:00 00:00:00 [facility] 350.1.13.10 it y of [place] 4.2.7.2.686 Emanuel as JOLLY?BLEA [id number] [facility] [address] [place] MEDICAL OFFICE BUILDING 2022-05-26 2022-05-26 Refill Brunilda Stella [facility] 1.2.840.114 [id number] Univers 00:00:00 00:00:00 HEALTH 350.1.13.10 it y of [place] 4.2.7.2.686 [place] [phone] [facility] [address] [place] [address] OFFICE [facility] 2022-05-18 2022-05-18 Outpatient R DAPHNEY SÁNCHEZ [facility] [id number] Univers 09:00:00 09:00:00 ity of [facility] 2022-05-17 2022-05-[address] [facility] [id number] Univers 09:00:00 09:00:00 TRAY [facility] 2022-05-13 2022-05-13 Orders Doctor BON 1.2.840.114 [id number] Univers 00:00:00 00:00:00 Only Unassigned, GRAYSON 350.1.13.10 ity of [place] [facility] 4.2.7.2.686 Emanuel as [id number] [address] 2022-05-13 2022-05-13 Telephone [facility] 1.2.840.114 [id number] Univers 00:00:00 00:00:00 [facility] 350.1.13.10 it y of [place] 4.2.7.2.686 Emanuel as JOLLY?BLEA [id number] [address] OFFICE [facility] 2022-05-10 2022-05-10 [facility] [id number] Univers 16:15:00 16:15:00 TRAY [facility] 2022-05-10 2022-05-10 Out[address] [facility] [id number] Univers 00:00:00 00:00:00 STELLA WORLEY it y of [facility] 2022-05-06 2022-05-06 Telephone Stella Worley [facility] 1.2.840.114 [id number] Univers 00:00:00 00:00:00 HEALTH 350.1.13.10 it y of [place] 4.2.7.2.686 [place] [id number] [facility] [address] OFFICE BUILDING 2022-05-06 2022-05-06 Orders Doctor BON 1.2.840.114 [id number] Univers 00:00:00 00:00:00 Only Unassigned, GRAYSON 350.1.13.10 ity of [place] [facility] 4.2.7.2.686 Emanuel as [id number] [address] 2022-04-29 2022-04-[address] [facility] [id number] Univers 14:00:00 14:00:00 BON ity [facility] 2022-04-14 2022-04-14 Outpatient R VKI OLIVEIRA [facility] [id number] Univers 09:00:00 09:00:00 ity of [facility] 2022-04-12 2022-04-12 [facility] 1.2.840.114 [id number] Univers 00:00:00 00:00:00 Ricardo GREGORIO 350.1.13.10 ity of [place] 4.2.7.2.686 [place] [id number] La dical NAL [address] [facility] 2022-04-09 2022-04-[address] [facility] [id number] Univers 11:00:00 11:00:00 ISAC ity [facility] 2022-04-08 2022-04-08 [facility] 1.2.840.114 [id number] Univers 08:30:00 23:59:00 [facility] 350.1.13.10 [place] [phone] [facility] [address] [place] OFFICE BUILDING 2022-04-08 2022-04-08 Outpatient R AGUSTINA, [facility] [id number] Univers 08:30:00 23:59:00 SHERI ity o f [facility] 2022-04-08 2022-04-08 Telephone Stella Worley [facility] 1.2.840.114 [id number] Univers 00:00:00 00:00:00 HEALTH 350.1.13.10 it [place]2.686 [place] [facility] [phone] [facility] [address] [place] OFFICE BUILDING 2022-04-02 2022-04-02 [address] R MARY J[address] [facility] [id number] Univers 09:30:00 09:30:00 AN flores [facility] 2022-03-31 2022-03-31 Telephone [facility] 1.2.840.114 [id number] Univers 00:00:00 00:00:00 [facility] 350.1.13.10 it y of [facility] 4.2.7.2.686 Emanuel as JOLLY?BLEA [phone] La gabi CHAIREZ 044 [facility] OFFICE [facility] 2022-03-27 2022-03-27 Emergency [facility] 1.2.021.360 [id number] Univers 07:48:00 08:22:00 Destiny JG 350.1.13.10 i ty of [place] 4[place]2.7.2.686 [place] [facility] [id number] [facility] [address] [place] 2022-03-27 2022-03-27 Emergency [facility] [id number] Univers 07:48:00 08:22:00 DESTINY flores [facility] 2022-03-27 2022-03-27 Orders Doctor BON 1.2.840.114 [id number] Univers 00:00:00 00:00:00 Only Unassigned, GRAYSON 350.1.13.10 ity of [place] [facility] 4.2.7.2.686 Emanuel as [phone] [address] 2022-03-24 2022-03-24 [facility] 1.2.840.114 [id number] Univers 00:00:00 00:00:00 [facility] 350.1.13.10 it y of [place] 4.2.7.2.686 Emanuel as JOLLY?BLEA [phone] [address] MEDICAL OFFICE BUILDING 2022-03-19 2022-03-19 Orders Doctor BON 1.2.840.114 [id number] Univers 00:00:00 00:00:00 Only Unassigned, GRAYSON 350.1.13.10 ity of [place] [facility] 4.2.7.2.686 Emanuel as [phone] [address] 2022-03-19 2022-03-19 Telephone [facility] 1.2.840.114 [id number] Univers 00:00:00 00:00:00 [facility] 350.1.13.10 it y of [place] 4.2.7.2.686 Emanuel as JOLLY?BLEA [id number] [address] OFFICE [facility] 2022-03-17 2022-03-17 Telephone [facility] 1.2.840.114 [id number] Univers 00:00:00 00:00:00 [facility] 350.1.13.10 it y of [place] 4.2.7.2.686 Emanuel as JOLLY?BLEA [phone] [address] OFFICE [facility] 2022-03-12 2022-03-12 Stella Barrow [facility] 1.2.840.114 [id number] Univers 00:00:00 00:00:00 HEALTH 350.1.13.10 it y of [place] [phone] [facility] [address] OFFICE BUILDING 2022-03-08 2022-03-08 Telephone [facility] 1.2.840.114 [id number] Univers 00:00:00 00:00:00 [facility] HEALTH 350.1.13.10 it y of [place] 4.2.7.2.686 Emanuel as JOLLY?BLEA [phone] [address] MEDICAL OFFICE BUILDING 2022-03-02 2022-03-02 Outpatient Brock MÁRQUEZ [facility] MARCUS [id number] Univers 07:39:00 11:22:00 CECILE ity [facility] 2022-03-02 2022-03-02 [facility] 1.2.840.114 [id number] Univers 07:39:00 11:22:00 Encounter Cecile JG 350.1.13.10 ity of [place] 4.2.7.2.686 [place]ICAL [id number] [facility] [address] 2022-03-02 2022-03-02 Surgery [facility] 1.2.290.420 [id number] Univers 09:11:00 10:25:00 Cecile JG 350.1.13.10 i ty of [place] 4.2.7.2.[place] [phone] [facility] [address] 2022-03-02 2022-03-02 Orders Doctor BON 1.2.840.114 [id number] Univers 00:00:00 00:00:00 Only Unassigned, GRAYSON 350.1.13.10 ity of [place] [facility] 4.2.7.2.686 Emanuel as [id number] [facility] [address] [place] 2022-03-01 2022-03-01 Telephone [facility] 1.2.840.114 [id number] Univers 00:00:00 00:00:00 Cecile JG 350.1.13.10 i ty of [place] 4.2.7.2.[place] [phone] La dical NAL 188 [facility] 2022-03-01 2022-03-01 [facility] 1.2.840.114 [id number] Univers 00:00:00 00:00:00 Ricardo GREGORIO 350.1.13.10 ity of [place].2.[place] [id number] La dical NAL 059 [facility] 2022-02-25 2022-02-[address] [facility] [id number] Univers 11:00:00 11:00:00 TRAY itjay [facility] 2022-02-25 2022-02-25 Telephone Stella Worley [facility] 1.2.840.114 [id number] Univers 00:00:00 00:00:00 HEALTH 350.1.13.10 it y of [place] 4.2.7.2.686 [place] [id number] [place] [address] [address] OFFICE BUILDING 2022-02-24 2022-02-24 Telephone [facility] 1.2.840.114 [id number] Univers 00:00:00 00:00:00 Tray HEALTH 350.1.13.10 it y of [place] 4.2.7.2.686 Emanuel as JOLLY?BLEA [id number] [address] OFFICE BUILDING 2022-02-23 2022-02-23 Telephone [facility] 1.2.840.114 [id number] Univers 00:00:00 00:00:00 Tray HEALTH 350.1.13.10 it y of [place] 4.2.7.2.686 Emanuel as JOLLY?BLEA [phone] [address] OFFICE [facility] 2022-02-22 2022-02-22 [facility]a [facility] 1.2.840.114 [id number] Univers 00:00:00 00:00:00 Wondiful A HEALTH 350.1.13.10 ity of [place] 4.2.7.2.686 Emanuel as JOLLY?BLEA [phone] [address] OFFICE [facility] 2022-02-18 2022-02-18 Patient [facility] 1.2.840.114 [id number] Univers 00:00:00 00:00:00 Secure Msg Tray HEALTH 350.1.13.10 ity of [place] 4.2.7.2.686 Emanuel as JOLLY?BLEA [phone] [address] OFFICE BUILDING 2022-02-18 2022-02-18 Telephone [facility] 1.2.840.114 [id number] Univers 00:00:00 00:00:00 Tray [place] 350.1.13.10 i ty of [place] 4.2.7.2.686 [place] K[place]HLIL[place] [phone] [address] 2022-02-16 2022-02-[address] [facility] [id number] Univers 09:15:00 09:30:10 TRAY jay [facility] 2022-02-16 2022-02-16 Office [facility] 1.2.840.114 [id number] Univers 09:15:00 09:30:10 Visit [facility] 350.1.13.10 it y of [place] 4.2.7.2.686 Emnauel as JOLLY?BLEA [phone] [address] OFFICE [facility] 2022-02-16 2022-02-[address] [facility] [id number] Univers 09:15:00 09:15:00 TRAY [facility] 2022-02-16 2022-02-16 Telephone Vik Oliveira [facility] 1..840.114 [id number] Univers 00:00:00 00:00:00 HEALTH 350.1.13.10 it y of [place] [id number] [address] OFFICE [facility] 2022-02-15 2022-02-[address] [facility] [id number] Univers 15:15:00 15:15:00 CAPRICE jay [facility] 2022-02-14 2022-02-14 Nurse BON Zarate 1.2.557.779 [id number] Univers 00:00:00 00:00:00 Triage Young GALICIA 350.1.13.10 it y of HOSPITAL 4.2.7.2.686 Emanuel as [phone] [address] 2022-02-12 2022-02-12 Telephone Rik [facility] 1.2.840.114 [id number] Univers 00:00:00 00:00:00 [facility] 350.1.13.10 it y of [place] 4.2.7.2.686 Emanuel as JOLLY?BLEA [phone] [address] OFFICE [facility] 2022-02-11 2022-02-11 Telephone Stella Worley [facility] 1.2.840.114 [id number] Univers 00:00:00 00:00:00 HEALTH 350.1.13.10 it y of [place] [phone] [address] OFFICE BUILDING 2022-02-11 2022-02-11 Telephone OliveiraVik Tirso [facility] 1.2.840.114 [id number] Univers 00:00:00 00:00:00 HEALTH 350.1.13.10 it y of [place].2.[place] [id number] [address] OFFICE BUILDING 2022-02-10 2022-02-10 [address] NAV ANTONIO [facility] [id number] Univers 00:00:00 00:00:00 ity of [facility] 2022-02-10 2022-02-[address] [facility] [id number] Univers 00:00:00 00:00:00 ity of [facility] 2022-02-10 2022-02-10 Orders Doctor BON 1..840.114 [id number] Univers 00:00:00 00:00:00 Only Unassigned, GRAYSON 350.1.13.10 ity of [place] [facility] 4.2.7.2.686 Emanuel as [phone] [address] 2022-02-08 2022-02-08 Outpatient R STELLA WORLEY [facility] [id number] Univers 10:00:00 11:34:48 STELLA WORLEY it y of [facility] 2022-02-08 2022-02-08 Office Stella Worley [facility] 1.2.840.114 [id number] Univers 10:00:00 11:34:48 Visit HEALTH 350.1.13.10 it y of [place].2.[place] [phone] [address] OFFICE BUILDING 2022-02-01 2022-02-01 Telephone Momo FLFRANDY 1.2.113.727 [id number] Univers 00:00:00 00:00:00 Isac S HEALTH 350.1.13.10 it y of [place] 4.2.7.2.686 Emanuel as JOLLY?BLEA [phone] La gabi CHAIREZ [address] [place] MEDICAL OFFICE BUILDING 2022-01-28 2022-01-28 Orders Doctor BON 1.2.840.114 [id number] Univers 00:00:00 00:00:00 Only Unassigned, GRAYSON 350.1.13.10 ity of [place] [facility] 4.2.7.2.686 Emanuel as [phone] [facility] [address] [place] 2022-01-27 2022-01-27 Telephone [facility] 1.2.840.114 [id number] Univers 00:00:00 00:00:00 [facility] 350.1.13.10 it y of [place] 4.2.7.2.686 Emanuel as JOLLY?BLEA [phone] La gabi CHAIREZ 044 [facility] OFFICE [facility] 2022-01-27 2022-01-27 Telephone [facility] 1.2.840.114 [id number] Univers 00:00:00 00:00:00 [facility] 350.1.13.10 it y of [facility] 4.2.7.2.686 Emanuel as JOLLY?BLEA [phone] La gabi JACOBS 044 [facility] OFFICE [facility] 2022-01-27 2022-01-27 Telephone Vik Oliveira [facility] 1.2.840.114 [id number] Univers 00:00:00 00:00:00 [facility] 350.1.13.10 it y of [place].686 [place] [phone] [facility] [address] [place] OFFICE [facility] 2022-01-25 2022-01-25 Outpatient R [facility] [id number] Univers 10:20:49 23:59:00 AN flores of [facility] 2022-01-25 2022-01-25 [facility] 1.2.840.114 [id number] Univers 10:00:00 23:59:00 Encounter An GREGORIO 350.1.13.10 ity of [place]2.7.2.686 [place] [id number] [facility] [address] [place] 2022-01-25 2022-01-[address] [facility] [id number] Univers 00:00:00 00:00:00 AN flores of [facility] 2022-01-25 2022-01-25 Orders Doctor BON 1.2.840.114 [id number] Univers 00:00:00 00:00:00 Only Unassigned, GRAYSON 350.1.13.10 ity of [place] [facility] 4.2.7.2.686 Emanuel as [phone] [address] 2022-01-22 2022-01-22 Telephone [facility] 1.2.840.114 [id number] Univers 00:00:00 00:00:00 Tray HEALTH 350.1.13.10 it y of [place] [facility] 4.2.7.2.686 Emanuel as JOLLY?BLEA [id number] [address] MEDICAL OFFICE [facility] 2022-01-22 2022-01-22 Orders Doctor BON 1.2.840.114 [id number] Univers 00:00:00 00:00:00 Only Unassigned, GRAYSON 350.1.13.10 ity of [place] [facility] 4.2.7.2.686 Emanuel as [phone] [address] 2022-01-21 2022-01-21 Reffranchesca [facility] 1.2.840.114 [id number] Univers 00:00:00 00:00:00 Wondiful A HEALTH 350.1.13.10 ity of [place] 4.2.7.2.686 Emanuel as JOLLY?BLEA [phone] [address] MEDICAL OFFICE [facility] 2022-01-20 2022-01-20 [facility] 1.2.840.114 [id number] Univers 00:00:00 00:00:00 Wondiful A HEALTH 350.1.13.10 ity [facility] 4.2.7.2.686 Emanuel as JOLLY?BLEA [id number] [address] OFFICE [facility] 2022-01-19 2022-01-19 Telephone [facility] 1.2.840.114 [id number] Univers 00:00:00 00:00:00 [facility] 350.1.13.10 it y of [place] 4.2.7.2.686 Emanuel as JOLLY?BLEA [phone] La dicroshan CHAIREZ 044 [facility] 2022-01-18 2022-01-18 [facility] 1.2.840.114 [id number] Univers 00:00:00 00:00:00 [facility] 350.1.13.10 it y of [place] 4.2.7.2.686 Emanuel as JOLLY?BLEA [phone] La gabi CHAIREZ 044 [facility] 2022-01-13 2022-01-13 Telephone [facility] 1..840.114 [id number] Univers 00:00:00 00:00:00 Miroslava SCOTTS 350.1.13.10 i ty of [place].2.7.2.[place] [id number] La gabi BARNEY 204 [facility] 2022-01-11 2022-01-11 Outpatient Brock [facility] [id number] Univers 14:45:00 23:59:00 [facility] 2022-01-11 2022-01-11 Outpatient Brock [facility] [id number] Univers 14:45:00 23:59:00 [facility] 2022-01-11 2022-01-11 Office [facility] 1..840.114 [id number] Univers 13:45:00 14:00:00 Visit [facility] 350.1.13.10 it y [facility] 4.2.7.2.686 Emanuel as JOLLY?BLEA [phone] La dicroshan CHAIREZ 198 [facility] 2022-01-11 2022-01-11 Outpatient Brock [facility] [id number] Univers 13:45:00 13:45:00 [facility] 2022-01-07 2022-01-07 [facility]phone [facility] 1..840.114 [id number] Univers 00:00:00 00:00:00 Tray HEALTH 350.1.13.10 it y of [place] 4.2.7.2.686 Emanuel as JOLLY?BLEA [phone] La gabi JACOBS[address] OFFICE [facility] 2022-01-06 2022-01-06 Telephone [facility] 1.2.840.114 [id number] [facility] 00:00:00 00:00:00 Wondiful A HEALTH 350.1.13.10 ity of [place] 4.2.7.2.686 Emanuel as JOLLY?BLEA [phone] La gabi JACOBS[address] OFFICE [facility] 2022-01-05 2022-01-05 Telephone [facility] 1.2.840.114 [id number] Univers 00:00:00 00:00:00 Tray HEALTH 350.1.13.10 it y of [place] 4.2.7.2.686 Emanuel as JOLLY?BLEA [phone] [address] OFFICE [facility] 2022-01-04 2022-01-04 Telephone [facility] 1.2.840.114 [id number] Univers 00:00:00 00:00:00 [facility] HEALTH 350.1.13.10 it y of [place] 4.2.7.2.686 Emanuel as JOLLY?BLEA [phone] [address] OFFICE [facility] 2021-12-31 2021-12-31 [facility] 1.2.840.114 [id number] Univers 00:00:00 00:00:00 Tray HEALTH 350.1.13.10 it y of [place] 4.2.7.2.686 Emanuel as JOLLY?BLEA [phone] [address] OFFICE [facility] 2021-12-31 2021-12-31 Telephone [facility] 1.2.840.114 [id number] Univers 00:00:00 00:00:00 Tray HEALTH 350.1.13.10 it y of [place] 4.2.7.2.686 Emanuel as JOLLY?BLEA [phone] [address] OFFICE [facility] 2021-12-30 2021-12-30 Patient Jessie [facility] 1.2.840.114 [id number] Univers 00:00:00 00:00:00 Outreach Genesis D [facility] 350.1.13.10 ity of [facility] 4.2.7.2.686 Emanuel as PROFESSIO [phone] La dicroshan BARNEY 044 [facility] ONE 2021-12-28 2021-12-28 Outpatient R [facility] [id number] Univers 09:30:00 10:07:08 [facility] 2021-12-28 2021-12-28 Outpatient R [facility] [id number] Univers 09:30:00 10:07:08 [facility] 2021-12-28 2021-12-28 Office [facility] 1.2.769.659 [id number] Univers 09:30:00 10:07:08 Visit Cecile [facility] 350.1.13.10 i ty of [place] 4.2.7.2.[place] [phone] La samiral NAL 188 [facility] 2021-12-24 2021-12-[address] [facility] [id number] Univers 14:00:00 14:00:00 [facility] 2021-12-24 2021-12-24 [facility] 1.2.840.114 [id number] Univers 00:00:00 00:00:00 Secure [facility] 350.1.13.10 ity of [place] [facility] 4.2.7.2.686 Emanuel as JOLLY?BLEA [phone] La dicroshan KNEY 044 [facility] 2021-12-22 2021-12-22 Telephone [facility] 1.2.840.114 [id number] Univers 00:00:00 00:00:00 Cecile BYERSCHRISTELLE 350.1.13.10 i ty [facility] 4.2.7.2.[place] [phone] La dical NAL 188 [facility] 2021-12-16 2021-12-16 Telephone [facility] 1.2.840.114 [id number] Univers 00:00:00 00:00:00 [facility] 350.1.13.10 it y of [place] 4.2.7.2.686 Emanuel as JOLLY?BLEA [phone] La gabi JACOBS[address] MEDICAL OFFICE BUILDING 2021-12-11 2021-12-11 Surgery [facility] 1.2.654.192 [id number] Univers 10:33:00 11:46:00 Cecile GREGORIO 350.1.13.10 i ty of [place] 4.2.7.2.686 [place] SURGICAL [phone] [facility] [address] [place] 2021-12-11 2021-12-11 [facility] 1.2.783.512 [id number] Univers 10:33:00 11:46:00 Cecile GREGORIO 350.1.13.10 i ty of [facility] 4.2.7.2.[place] [id number] [facility] [address] [place] 2021-12-11 2021-12-11 [facility] 1.2.132.927 [id number] 9758 Univers 10:33:00 11:46:00 Cecile GREGORIO 350.1.13.10 i ty of [place] 4.2.7.2.[place]GICAL [id number] [facility] [address] [place] 2021-12-11 2021-12-11 Outpatient R [facility] MARCUS [id number] Univers 08:40:00 11:25:00 CECILE flores [facility] 2021-12-11 2021-12-11 [facility] 1.2.840.114 [id number] Univers 08:40:00 11:25:00 Encounter Cecile GREGORIO 350.1.13.10 ity of [facility] 4.2.7.2.[place] [phone] [place] [address] [place] 2021-12-11 2021-12-11 Outpatient R [facility] MARCUS [id number] Univers 08:40:00 11:25:00 CECILE flores [facility] 2021-12-11 2021-12-11 Outpatient [facility] M[facility] [id number] Univers 08:40:00 11:25:00 CECILE ity [facility] 2021-12-11 2021-12-11 Orders Doctor BON 1.2.840.114 [id number] Univers 00:00:00 00:00:00 Only Unassigned, GRAYSON 350.1.13.10 ity of [place] [facility] 4.2.7.2.686 Emanuel as [phone] [address] 2021-12-09 2021-12-09 Telephone [facility] 1.2.840.114 [id number] Univers 00:00:00 00:00:00 Wondiful A HEALTH 350.1.13.10 ity of [place] 4.2.7.2.686 Emanuel as JOLLY?BLEA [phone] [facility] ARLENE [address] [place] MEDICAL OFFICE [facility] 2021-12-08 2021-12-[address] [facility] [id number] Univers 13:00:00 13:00:00 ity [facility] 2021-12-08 2021-12-08 Telephone [facility] 1.2.840.114 [id number] Univers 00:00:00 00:00:00 Tray HEALTH 350.1.13.10 it y of [place] 4.2.7.2.686 Emanuel as JOLLY?BLEA [phone] [facility] ARLENE 044 [facility] OFFICE [facility] 2021-12-08 2021-12-08 Telephone [facility] 1.2.840.114 [id number] Univers 00:00:00 00:00:00 Tray HEALTH 350.1.13.10 it y of [place] 4.2.7.2.686 Emanuel as JOLLY?BLEA [phone] La gabi [facility] 044 [facility] OFFICE [facility] 2021-12-03 2021-12-03 Outpatient R [facility] [id number] Univers 13:30:00 13:30:00 [facility] 2021-12-03 2021-12-03 Telephone [facility] 1.2.840.114 [id number] Univers 00:00:00 00:00:00 Cecile GREGORIO 350.1.13.10 i ty of [place].2.[place] [id number] La gabi BARNEY 188 [facility] 2021-12-03 2021-12-03 Telephone Nisa [facility] 1.2.840.114 [id number] Univers 00:00:00 00:00:00 Wondiful A HEALTH 350.1.13.10 ity of [place] 4.2.7.2.686 Emanuel as PROFESSIO [phone] [facility] SAVITA [address] [place] [address] OFFICE [facility] ONE 2021-12-01 2021-12-[address] [facility] [id number] Univers 14:15:00 14:54:12 WONDIFUL ity o f [facility] 2021-12-01 2021-12-01 Office [facility] 1..840.114 [id number] Univers 14:15:00 14:54:12 Visit Wondiful A HEALTH 350.1.13.10 ity of [facility] 4.2.7.2.686 Emanuel as JOLLY?BLEA [phone] [address] OFFICE [facility] 2021-12-01 2021-12-[address] [facility] [id number] Univers 14:15:00 14:54:12 WONDIFUL ity o f [facility] 2021-12-01 2021-12-01 Patient Scot [facility] 1.2.840.114 [id number] Univers 00:00:00 00:00:00 Outreach Vik Fleming HEALTH 350.1.13.10 i ty of [place] 4.2.7.2.686 Emanuel as JOLLY?BLEA [phone] [facility] Sciences[facility] CHAIREZ [address] [place] [address] OFFICE BUILDING 2021-12-01 2021-12-01 Patient Scot [facility] 1.2.840.114 [id number] Univers 00:00:00 00:00:00 Outreach Vik Fleming HEALTH 350.1.13.10 i ty of [place] 4.2.7.2.686 Emanuel as JOLLY?BLEA [phone] [facility] KNEY [address] MEDICAL OFFICE BUILDING 2021-11-18 2021-11-[address] [facility] [id number] Univers 10:00:00 10:44:34 WONDIFUL ity o f [facility] 2021-11-18 2021-11-[address] [facility] [id number] Univers 10:00:00 10:44:34 WONDIFUL ity o f [facility] 2021-11-18 2021-11-[address] [facility] [id number] Univers 10:00:00 10:00:00 WONDIFUL ity o f [facility] 2021-11-18 2021-11-[address] [facility] [id number] Univers 10:00:00 10:00:00 WONDIFUL ity o f [facility] 2021-11-18 2021-11-[address] [facility] [id number] Univers 10:00:00 10:00:00 WONDIFUL ity o f [facility] 2021-11-16 2021-11-[address] [facility] [id number] Univers 09:30:00 09:30:00 CECILE [facility] 2021-11-16 2021-11-[address] [facility] [id number] Univers 09:30:00 09:30:00 CECILE [facility] 2021-11-16 2021-11-[address] [facility] [id number] Univers 09:30:00 09:30:00 CECILE [facility] 2021-11-15 2021-11-15 Emergency [facility] [id number] Univers 09:06:00 12:49:00 DESTINY flores [facility] 2021-11-15 2021-11-15 Emergency [facility] 1.2.707.573 [id number] Univers 09:06:00 12:49:00 Destiny GREGORIO 350.1.13.10 i [facility] 4.2.7.2.686 [facility] [phone] [address] 2021-11-15 2021-11-15 Emergency X ONEILL, [facility] ERT [id number] Univers 09:06:00 12:49:00 DESTINY ity of [facility] 2021-11-10 2021-11-10 Telephone [facility] 1.2.840.114 [id number] Univers 00:00:00 00:00:00 Wondiful A HEALTH 350.1.13.10 ity of [place] 4.2.7.2.686 Emanuel as JOLLY?BLEA [phone] [address] OFFICE [facility] 2021-11-05 2021-11-05 Orders Doctor BON 1.2.840.114 [id number] Univers 00:00:00 00:00:00 Only Unassigned, GRAYSON 350.1.13.10 ity of [place] [facility] 4.2.7.2.686 Emanuel as [phone] [facility] [address] [place] 2021-11-05 2021-11-05 [facility] 1.2.840.114 [id number] Univers 00:00:00 00:00:00 Wondiful A HEALTH 350.1.13.10 ity of [place] 4.2.7.2.686 Emanuel as JOLLY?BLEA [phone] [address] OFFICE [facility] 2021-11-03 2021-11-03 [facility] 1.2.840.114 [id number] Univers 00:00:00 00:00:00 Wondiful A HEALTH 350.1.13.10 ity of [place] 4.2.7.2.686 Emanuel as JOLLY?BLEA [phone] [address] OFFICE [facility] 2021-11-03 2021-11-03 [facility] 1.2.840.114 [id number] Univers 00:00:00 00:00:00 Wondiful A HEALTH 350.1.13.10 ity of [place] 4.2.7.2.686 Emanuel as JOLLY?BLEA [phone] [address] OFFICE [facility] 2021-10-27 2021-10-27 Daphney Holden 1.2.840.114 [id number] Univers 00:00:00 00:00:00 Management H 350.1.13.10 ity of [facility] 4.2.7.2.686 Emanuel as [phone] [address] 2021-10-26 2021-10-26 Telephone Daphney Sánchez CINTHIA 1.2.840.114 [id number] Univers 00:00:00 00:00:00 H 350.1.13.10 it y of [facility] 4.2.7.2.686 Emanuel as [phone] [address] 2021-10-23 2021-10-23 [facility]phone [facility] [id number] Univers 00:00:00 00:00:00 Corry GREGORIO 350.1.13.10 ity of [place] 4[place]2.7.2.[place] [phone] [place] BARNEY [address] [place] [address] 2021-10-22 2021-10-[address] [facility] [id number] Univers 14:45:00 14:45:00 ISAC ity [facility] 2021-10-22 2021-10-[address] [facility] [id number] Univers 14:45:00 14:45:00 ISAC ity [facility] 2021-10-22 2021-10-[address] [facility] [id number] Univers 14:45:00 14:45:00 ISAC ity [facility] 2021-10-22 2021-10-[address] [facility] [id number] Univers 14:45:00 14:45:00 ISAC ity [facility] 2021-10-19 2021-10-19 [facility]phone [facility] .2.840.114 [id number] Univers 00:00:00 00:00:00 Wondiful A HEALTH 350.1.13.10 ity [facility] 4.2.7.2.686 Emanuel as JOLLY?BLEA [phone] La dicroshan CHAIREZ [address] [place] [address] [facility] 2021-10-13 2021-10-13 Outpatient [facility] [id number] Univers 10:30:00 10:41:12 CORRY flores [facility] 2021-10-13 2021-10-13 Office [facility] 1.2.840.114 [id number] Univers 10:30:00 10:41:12 Visit Corry GREGORIO 350.1.13.10 ity of [facility] 4.2.7.2.686 Emanuela barry ORTIZESSIO [phone] La dical NAL 204 [facility] 2021-10-13 2021-10-13 Outpatient [facility] [id number] Univers 10:30:00 10:41:12 CORRY flores [facility] 2021-09-29 2021-09-29 Outpatient [facility] [id number] Univers 16:14:01 23:59:00 CAPRICE jay [facility] 2021-09-29 2021-09-29 Outpatient R [facility] [id number] Univers 16:14:01 23:59:00 CAPRICE [facility] 2021-09-29 2021-09-29 Hospital [facility] 1.2.840.114 [id number] Univers 16:14:01 23:59:00 Encounter Caprice THAPA 350.1.13.10 ity of [place] 4.2.7.2.686 Emanuel as JOLLY?BLEA [phone] La gabi CHAIREZ 809 [facility] 2021-09-29 2021-09-29 Outpatient R [facility] [id number] Univers 16:14:01 23:59:00 CAPRICE [facility] 2021-09-29 2021-09-29 Office [facility] 1.2.840.114 [id number] Univers 16:00:00 16:58:02 Visit Isac Forrester [facility] 350.1.13.10 it y of [facility] 4.2.7.2.686 Emanuel as JOLLY?BLEA [phone] La dicroshan KNEY 198 [facility] 2021-09-29 2021-09-29 Outpatient [facility] [id number] Univers 16:00:00 16:58:02 [facility] 2021-09-29 2021-09-[address] [facility] [id number] Univers 16:00:00 16:58:02 [facility] 2021-09-29 2021-09-[address] [facility] [id number] Univers 16:00:00 16:00:00 [facility] 2021-09-24 2021-09-[address] [facility] [id number] Univers 14:00:00 14:00:00 [facility] 2021-09-19 2021-09-19 Nurse Caprice Ozuna 1.2.840.114 [id number] Univers 00:00:00 00:00:00 Triage GRAYSON 350.1.13.10 it y [facility] 4.2.7.2.686 Emanuel as [phone] [address] 2021-09-09 2021-09-09 Prep For [facility] 1.2.840.114 [id number] Univers 00:00:00 00:00:00 Surgery Corry GREGORIO 350.1.13.10 ity [facility] 4.2.7.2.686 [place] [id number] La dical NAL 204 [facility] 2021-09-08 2021-09-08 Office [facility] 1.2.504.094 [id number] Univers 14:30:00 16:16:36 Visit Cecile GREGORIO 350.1.13.10 i ty of [place] 4.2.7.2.686 [place] [phone] La dical NAL 188 [facility] 2021-09-08 2021-09-[address] [facility] [id number] Univers 14:30:00 16:16:36 CECILE ity [facility] 2021-09-08 2021-09-[address] [facility] [id number] Univers 14:30:00 16:16:36 CECILE ity [facility] 2021-09-08 2021-09-[address] [facility] [id number] Univers 14:30:00 14:30:00 CECILE flores [facility] 2021-09-08 2021-09-08 Orders Doctor BON 1.2.840.114 [id number] Univers 00:00:00 00:00:00 Only Unassigned, GRAYSON 350.1.13.10 ity of [place] [facility] 4.2.7.2.686 Emanuel as [phone] [address] 2021-09-02 2021-09-[address] [facility] [id number] Univers 14:00:00 14:00:00 CAPRICE flores [facility] 2021-08-31 2021-08-31 Orders Doctor BON 1.2.840.114 [id number] Univers 00:00:00 00:00:00 Only Unassigned, GRAYSON 350.1.13.10 ity of [place] [facility] 4.2.7.2.686 Emanuel as [phone] [address] 2021-08-26 2021-08-[address] [facility] [id number] Univers 10:45:00 11:58:51 WONDIFUL ity o f [facility] 2021-08-26 2021-08-[address] [facility] [id number] Univers 10:45:00 11:58:51 WONDIFUL ity o f [facility] 2021-08-26 2021-08-[address] [facility] [id number] Univers 10:45:00 11:58:51 WONDIFUL ity o f [facility] 2021-08-26 2021-08-[address] [facility] [id number] Univers 10:45:00 11:58:51 WONDIFUL ity o [facility] 2021-08-26 2021-08-26 Office [facility] 1.2.840.114 [id number] Univers 10:34:47 11:58:51 Visit Wondiful A HEALTH 350.1.13.10 ity of [place] 4.2.7.2.686 Emanuel as JOLLY?BLEA [id number] La gabi [address] MEDICAL OFFICE BUILDING 2021-08-17 2021-08-17 Case [facility] 1.2.840.114 [id number] Univers 00:00:00 00:00:00 Management Wondiful A HEALTH 350.1.13.10 ity of [facility] 4.2.7.2.686 Emanuel as JOLLY?BLEA [phone] La dicroshan KNEY [address] [place] MEDICAL OFFICE [facility] 2021-08-13 2021-08-[address] [facility] [id number] Univers 07:58:20 23:59:00 WONDIFUL ity o f [facility] 2021-08-13 2021-08-13 Hospital [facility] 1.2.032.006 [id number] Univers 07:58:20 23:59:00 Encounter Wondiful A [place] 350.1.13.10 ity of [place] 4.2.7.2.686 [place] [phone] [facility] 8[address] [place] 2021-08-13 2021-08-[address] 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 10 ity of [facility] 4.2.7.2.686 [place] [facility] [phone] La samirroshan NAL 353 [facility] 2021-08-13 2021-08-[address] [facility] [id number] Univers 00:00:00 00:00:00 WONDIFUL ity o f [facility] 2021-08-04 2021-08-[address] [facility] [id number] Univers 15:30:00 15:42:52 WONDIFUL ity o f [facility] 2021-08-04 2021-08-[address] [facility] [id number] Univers 15:30:00 15:42:52 WONDIFUL ity o f [facility] 2021-08-04 2021-08-[address] [facility] [id number] Univers 15:30:00 15:42:52 WONDIFUL ity o f [facility] 2021-08-04 2021-08-[address] [facility] [id number] Univers 15:30:00 15:42:52 WONDIFUL ity o f [facility] 2021-08-04 2021-08-[address] [facility] [id number] Univers 15:30:00 15:42:52 WONDIFUL ity o [facility] 2021-08-04 2021-08-04 Office [facility] 1.2.840.114 [id number] [facility] Univers 14:30:05 15:42:52 Visit Wondiful A [facility] 350.1.13.10 ity [facility] 4.2.7.2.686 Emanuel as JOLLY?BLEA [phone] [address] MEDICAL OFFICE BUILDING 2021-08-04 2021-08-[address] [facility] [id number] Univers 15:30:00 15:30:00 WONDIFUL ity o [facility] 2021-08-03 2021-08-03 Pre Visit BON Edmondson 1.2.840.114 [id number] Univers 00:00:00 00:00:00 Outreach Jorge GALICIA 350.1.13.10 i ty [facility] 4.2.7.2.686 Emanuel as [phone] [address] 2021-07-15 2021-07-[address] [facility] [id number] Univers 14:20:00 14:20:00 SHORTY ity o [facility] 2021-07-15 2021-07-15 Outpatient [facility] [id number] Univers 14:20:00 14:20:00 SHORTY ity o [facility] 2021-07-15 2021-07-15 Outpatient [facility] [id number] Univers 14:20:00 14:20:00 SHORTY ity o [facility] 2021-07-15 2021-07-[address] [facility] [id number] Univers 14:20:00 14:20:00 SHORTY mark o altagracia [facility] 2021-07-14 2021-07-14 Refill Nisa [facility] 1.2.840.114 [id number] Univers 00:00:00 00:00:00 Wondiful A Health 350.1.13.10 ity of [place] 4.2.7.2.686 Emanuel as Professio [phone] [address] One 2021-07-10 2021-07-10 [place] [id number] Devoted 05:13:00 05:13:00 1015 [facility]ica l [facility] 2021-07-02 2021-07-02 [facility] 1.2.840.114 [id number] Univers 00:00:00 00:00:00 Wondiful A Health 350.1.13.10 ity of [place] 4.2.7.2.686 Emanuel as Professio [phone] [address] One 2021-06-15 2021-06-15 Orders Doctor BON 1.2.840.114 [id number] Univers 00:00:00 00:00:00 Only Unassigned, GRAYSON 350.1.13.10 ity of [facility] 4.2.7.2.686 Emanuel as [phone] [facility] [address] 2021-06-08 2021-06-08 Patient Grupo Garcia 1.2.840.114 [id number] Univers 00:00:00 00:00:00 Outreach Emily Chahal Chavarria 350.1.13.10 ity of [place] 4.2.7.2.686 [place] [phone] [facility] [address] 2021-06-08 2021-06-08 Refill Vik Oliveira [facility] 1.2.840.114 [id number] Univers 00:00:00 00:00:00 Health 350.1.13.10 it y of [place]2.7.2.686 [place] [phone] [place] 757802 Branch Office Building 2021-05-25 2021-05-25 Emergency X DREVER, [facility] ERT [id number] Univers 18:22:00 20:23:00 LAUREEN ity of [facility] 2021-05-25 2021-05-25 Emergency X DREVER, [facility] ERT [id number] Univers 18:22:00 20:23:00 LAUREEN ity of [facility] 2021-05-25 2021-05-25 Emergency X DREVER, [facility] ERT [id number] Univers 18:22:00 20:23:00 LAUREEN ity of [facility] 2021-05-25 2021-05-25 Emergency X DREVER, [facility] ERT [id number] Univers 18:22:00 20:23:00 LAUREEN ity [facility] 2021-05-25 2021-05-25 Emergency X DREVER, [facility] ERT [id number] Univers 18:22:00 20:23:00 LAUREEN ity [facility] 2021-05-25 2021-05-25 Emergency Drever, [facility] 1.2.778.507 [id number] Univers 18:22:00 20:23:00 Laureen Truong [place] 350.1.13.10 ity of [place] 4.2.7.2.686 [facility] [phone] [address] 2021-05-21 2021-05-21 Outpatient R LAILA ORELLANA [facility] [id number] Univers 09:30:00 09:30:00 LAILA ORELLANA i [facility] 2021-05-19 2021-05-19 Susan [facility] 1.2.840.114 [id number] Univers 00:00:00 00:00:00 Wondiful A Health 350.1.13.10 ity of [place] 4.2.7.2.686 [facility] [id number] [facility] 044 Branch Office Building One 2021-05-14 2021-05-14 Outpatient R DAPHNEY SÁNCHEZ [facility] [id number] Univers 09:00:00 09:00:00 ity [facility] 2021-05-09 2021-05-09 Outpatient DMG [facility] [id number] Devoted 11:00:00 11:00:00 0814 Medica l Group 2021-05-08 2021-05-[address] [facility] [id number] Univers 07:37:21 23:59:00 CAPRICE flores [facility] 2021-05-08 2021-05-[address] [facility] [id number] Univers 07:37:21 23:59:00 CAPRICEBRAYDEN flores [facility] 2021-05-08 2021-05-[address] [facility] [id number] Univers 07:37:21 23:59:00 CAPRICEBRAYDEN flores [facility] 2021-05-08 2021-05-[address] [facility] [id number] Univers 07:37:21 23:59:00 [facility] 2021-05-08 2021-05-[address] [facility] [id number] Univers 08:15:00 08:15:00 ISAC jay [facility] 2021-05-07 2021-05-07 Outpatient DMG DM [id number] Devoted 12:00:00 12:00:00 0812 Medica l Group 2021-04-27 2021-04-27 Susan [facility] 1.2.840.114 [id number] Univers 00:00:00 00:00:00 [facility] 350.1.13.10 it y of [place] 4.2.7.2.686 Emanuel as PROFESSIO [phone] La dical [address] OFFICE BUILDING ONE 2021-04-21 2021-04-[address] [facility] [id number] Univers 15:45:00 15:45:00 WONDIFUL ity o f [facility] 2021-04-07 2021-04-07 Outpatient Brock [facility] [id number] Univers 09:20:00 09:20:00 VINEET jay [facility] 2021-04-02 2021-04-02 Outpatient Brock [facility] [id number] Univers 08:45:00 08:45:00 ISAC itjay [facility] 2021-04-01 2021-04-01 Emergency X NINO, [facility] ERT [id number] Univers 13:00:00 15:36:00 DESTINY flores [facility] 2021-04-01 2021-04-01 Emergency X NINO, [facility] ERT [id number] Univers 13:00:00 15:36:00 DESTINY flores [facility] 2021-04-01 2021-04-01 Emergency X NINO, [facility] ERT [id number] Univers 13:00:00 15:36:00 DESTINY flores [facility] 2021-04-01 2021-04-[address] [facility] [id number] Univers 08:45:00 08:45:00 ity [facility] 2021-03-28 2021-03-28 Outpatient R BELLA, [facility] [id number] Univers 09:40:00 09:40:00 CHELA alany o f [facility] 2021-03-27 2021-03-27 Outpatient R MARY JANE, [facility] [id number] Univers 09:30:00 09:30:00 AN itjay [facility] 2021-03-26 2021-03-26 Outpatient R MOMO, [facility] [id number] Univers 15:15:00 15:15:00 ISAC [facility] 2021-03-25 2021-03-25 Outpatient R JAYMIE, [facility] [id number] Univers 08:30:00 08:30:00 [facility] 2021-03-23 2021-03-23 Outpatient R SELF, [facility] [id number] Univers 08:00:00 08:00:00 EMERY ity o f [facility] 2021-03-20 2021-03-20 Emergency X Tatiana MITCHELL [facility] ERT [id number] Univers 19:09:00 19:47:00 ity [facility] 2021-03-20 2021-03-20 Emergency X Tatiana MITCHELL [facility] ERT [id number] Univers 19:09:00 19:47:00 ity [facility] 2021-03-20 2021-03-20 Emergency X STEPHEN, Tatiana [facility] ERT [id number] Univers 19:09:00 19:47:00 itjay [facility] 2021-03-18 2021-03-18 Outpatient Brock HENRIQUEZ [facility] NUT [id number] Univers 00:00:00 00:00:00 CAPRICE flores [facility] 2021-03-12 2021-03-12 Outpatient Brock [facility] [id number] Univers 08:30:00 08:30:00 ISAC flores [facility] 2021-03-11 2021-03-11 Outpatient Brock [facility] [id number] Univers 16:15:00 16:15:00 ISAC [facility] 2021-03-10 2021-03-10 [facility] 1.2.840.114 [id number] Univers 00:00:00 00:00:00 [facility] 350.1.13.10 it y of [place] 4.2.7.2.686 [facility] [id number] [place] [address] Branch OFFICE BUILDING 2021-02-25 2021-02-[address] [facility] [id number] Univers 14:30:00 14:30:00 ISAC [facility] 2021-02-25 2021-02-25 Telephone [facility]PRES[facility] .[id number] 00:00:00 00:00:00 [facility] Kaley [place] 350.1.13.10 [place] 4.2.7.2.686 [facility] [phone] nal 059 Building 2021-02-24 2021-02-[address] [facility] [id number] Univers 11:00:00 11:00:00 WONDIFUL ity o f [facility] 2021-02-19 2021-02-[address] [facility] [id number] Univers 10:03:49 23:59:00 CAPRICE flores [facility] 2021-02-19 2021-02-[address] [facility] [id number] Univers 00:00:00 00:00:00 [facility] 2021-02-17 2021-02-[address] [facility] [id number] Univers 17:40:00 17:40:00 ity [facility] 2021-02-17 2021-02-[address] [facility] [id number] Univers 17:40:00 17:17:33 ROGE ity [facility] 2021-02-17 2021-02-[address] [facility] [id number] Univers 17:40:00 17:17:33 ROGE ity [facility] 2021-02-17 2021-02-[address] [facility] [id number] Univers 17:40:00 17:17:33 ROGE [facility] 2021-02-10 2021-02-[address] [facility] [id number] Univers 09:00:00 09:00:00 SENDIL [facility] 2021-02-09 2021-02-[address] [facility] [id number] Univers 14:45:00 14:45:00 [facility] 2021-02-09 2021-02-[address] [facility] [id number] Univers 14:45:00 14:45:00 [facility] 2021-02-04 2021-02-04 Outpatient R MARCELINA VALERA [facility] [id number] Univers 10:30:00 10:30:00 MARCELINA VALERA [facility] 2021-02-03 2021-02-[address] [facility] [id number] Univers 16:30:00 16:30:00 WONDIFUL ity o f [facility] 2021-01-27 2021-01-[address] [facility] [id number] Univers 15:00:00 15:00:00 ity [facility] 2021-01-21 2021-01-[address] [facility] [id number] Univers 11:00:00 11:00:00 [facility]IL [facility] 2021-01-20 2021-01-20 Outpatient R DAPHNEY SÁNCHEZ [facility] [id number] Univers 11:00:00 11:00:00 ity [facility] 2021-01-14 2021-01-14 Outpatient R RIK, [facility] [id number] Univers 10:45:00 10:45:00 TRAY [facility] 2021-01-08 2021-01-08 Outpatient R MOMO, [facility] [id number] Univers 08:45:00 08:45:00 ISAC [facility] 2021-01-06 2021-01-06 Outpatient R AIMEE, [facility] [id number] Univers 11:00:00 11:00:00 SHORTY ity o f [facility] 2021-01-01 2021-01-01 Outpatient R NISA, [facility] [id number] Univers 15:00:00 15:00:00 WONDIFUL ity o f [facility] 2021-01-01 2021-01-01 Outpatient R NISA, [facility] [id number] Univers 15:00:00 15:00:00 WONDIFUL ity o f [facility] 2021-01-01 2021-01-01 Outpatient R NISA, [facility] [id number] Univers 15:00:00 15:00:00 WONDIFUL ity o f [facility] 2021-01-01 2021-01-01 Outpatient R NISA, [facility] [id number] Univers 15:00:00 15:00:00 WONDIFUL ity o f [facility] 2020-12-13 2020-12-[address] [facility] [id number] Univers 08:25:00 08:25:00 ity [facility] 2020-12-13 2020-12-[address] [facility] [id number] Univers 08:25:00 08:25:00 TAMMY y [facility] 2020-12-13 2020-12-[address] [facility] [id number] Univers 08:25:00 08:25:00 TAMMY y [facility] 2020-12-13 2020-12-13 Outpatient R BELGICA, [facility] [id number] Univers 08:25:00 08:25:00 TAMMY ity [facility] 2020-12-02 2020-12-02 Outpatient R JAKE, [facility] [id number] Univers 09:00:00 09:00:00 LIANA ity [facility] 2020-12-02 2020-12-02 Outpatient R JAKE, [facility] [id number] Univers 09:00:00 09:00:00 LIANA ity [facility] 2020-12-02 2020-12-02 Outpatient R JAKE, [facility] [id number] Univers 09:00:00 09:00:00 LIANA ity [facility] 2020-12-02 2020-12-02 Outpatient R JAKE, [facility] [id number] Univers 09:00:00 09:00:00 LIANA ity [facility] 2020-11-22 2020-11-22 Outpatient R BELGICA, [facility] [id number] Univers 09:40:00 09:40:00 TAMMY ity [facility] 2020-11-22 2020-11-[address] [facility] [id number] Univers 09:40:00 09:40:00 TAMMY ity [facility] 2020-11-22 2020-11-[address] [facility] [id number] Univers 09:40:00 09:40:00 TAMMY ity [facility] 2020-11-21 2020-11-[address] [facility] [id number] Univers 14:00:00 14:00:00 [facility] 2020-11-20 2020-11-20 Outpatient R LAILA ORELLANA [facility] [id number] Univers 15:00:00 15:00:00 LAILA ORELLANA i [facility] 2020-11-09 2020-11-[address] [facility] [id number] Univers 08:20:00 08:20:00 VINEET [facility] 2020-11-09 2020-11-[address] [facility] [id number] Univers 08:20:00 08:20:00 VINEET itjay [facility] 2020-11-09 2020-11-[address] [facility] [id number] Univers 08:20:00 08:20:00 VINEET itjay [facility] 2020-11-07 2020-11-07 Outpatient R VIK OLIVEIRA [facility] [id number] Univers 11:30:00 11:30:00 ity [facility] 2020-11-06 2020-11-06 Outpatient R NISA, [facility] [id number] Univers 08:15:00 08:15:00 WONDIFUL ity o f [facility] 2020-10-16 2020-10-[address] [facility] [id number] Univers 18:00:00 18:00:00 VINEET jay [facility] 2020-10-02 2020-10-02 Outpatient R MOMO, [facility] [id number] Univers 10:15:00 10:15:00 ISAC [facility] 2020-09-22 2020-09-22 Outpatient R STEFFANIE, [facility] [id number] Univers 08:00:00 08:00:00 EMERY ity o f [facility] 2020-09-15 2020-09-15 Outpatient R NISA, [facility] [id number] Univers 00:00:00 00:00:00 WONDIFUL ity o f [facility] 2020-09-15 2020-09-15 Outpatient R NISA, [facility] [id number] Univers 00:00:00 00:00:00 WONDIFUL ity o f [facility] 2020-09-14 2020-09-[address] [facility] [id number] Univers 08:40:00 08:40:00 ROGE [facility] 2020 2020 Outpatient R NISA, [facility] [id number] Univers 00:00:00 00:00:00 WONDIFUL ity o f [facility] 2020-09-10 2020-09-10 Outpatient R DONITA, [facility] [id number] Univers 08:00:00 08:00:00 SHANTI itjay of [facility] 2020-09-08 2020-09-08 Outpatient R SELF, [facility] [id number] Univers 08:00:00 08:00:00 EMERY ity o f [facility] 2020-09-04 2020-09-04 Outpatient R NISA, [facility] [id number] Univers 16:00:00 16:00:00 WONDIFUL ity o f [facility] 2020-08-25 2020-08-25 Outpatient R NISA, [facility] [id number] Univers 11:00:00 11:13:03 WONDIFUL ity o f [facility] 2020-08-25 2020-08-25 Outpatient R NISA, [facility] [id number] Univers 10:30:00 10:30:00 WONDIFUL ity o f [facility] 2020-08-06 2020-08-06 Outpatient R PATRICIO, [facility] [id number] Univers 10:20:00 10:20:00 BALJIT flores [facility] 2020-08-06 2020-08-06 Outpatient R PATRICIO, [facility] [id number] Univers 09:00:00 09:00:00 BALJIT flores [facility] 2020-08-01 2020-08-01 Outpatient R MARY JANE, [facility] [id number] Univers 10:00:00 10:00:00 AN mark [facility] 2020-07-18 2020-07-18 Outpatient R LAILA ORELLANA [facility] [id number] Univers 11:00:00 11:00:00 LAILA ORELLANA i ty [facility] 2020-07-17 2020-07-17 Outpatient R VIK OLIVEIRA [facility] [id number] Univers 12:00:00 12:00:00 ity [facility] 2020-07-14 2020-07-14 Outpatient R NISA, [facility] [id number] Univers 10:45:00 10:45:00 WONDIFUL ity o f [facility] 2020-07-07 2020-07-07 Outpatient R MAKSIM, [facility] [id number] Univers 08:30:00 08:30:00 [facility] 2020-06-27 2020-06-27 Outpatient R NISA, [facility] [id number] Univers 15:15:00 15:15:00 WONDIFUL itjay o f [facility] 2020-06-12 2020-06-12 Outpatient R MAKSIM, [facility] [id number] Univers 15:45:00 15:45:00 AUBRIE [facility] 2020-06-05 2020-06-05 Outpatient R MOMO, [facility] [id number] Univers 10:30:00 10:30:00 ISAC [facility] 2020-06-03 2020-06-03 Outpatient R ATUL, [facility] [id number] Univers 09:00:00 09:00:00 SENDIL [facility] 2020-05-16 2020-05-[address] [facility] [id number] Univers 16:30:00 16:30:00 [facility] 2020-05-09 2020-05-[address] [facility] [id number] Univers 10:20:00 10:20:00 ity [facility] 2020-04-21 2020-04-21 Outpatient R ARGENIS, [facility] [id number] Univers 11:40:00 11:40:00 DORITA [facility] 2020-04-18 2020-04-18 Outpatient R ATUL, [facility] [id number] Univers 09:30:00 09:30:00 SENDIL [facility] 2020-04-15 2020-04-[address] [facility] [id number] Univers 10:20:00 10:20:00 ity [facility] 2020-04-04 2020-04-[address] [facility] [id number] Univers 10:00:00 10:00:00 ity [facility] 2020-04-01 2020-04-[address] [facility] [id number] Univers 08:00:00 08:00:00 ity [facility] 2020-03-20 2020-03-20 Outpatient R ROMARIO, [facility] [id number] Univers 10:00:00 10:00:00 FABRICIO [facility] 2020-03-10 2020-03-[address] [facility] [id number] Univers 08:45:00 08:45:00 CL [facility] 2020-03-03 2020-03-[address] [facility] [id number] Univers 08:00:00 08:00:00 AUBRIE [facility] 2020-01-22 2020-01-22 Outpatient R MOMO, [facility] [id number] Univers 15:45:00 15:45:[address] [facility] [place] [place] 2020-01-22 2020-01-[address] [facility] [id number] Univers 10:45:00 10:45:[address] [facility] [place] [place] 2020-01-18 2020-01-18 Outpatient R DAPHNEY SÁNCHEZ [facility] [id number] Univers 11:30:00 11:30:00 ity [facility] 2020-01-11 2020-01-11 Outpatient R LAILA ORELLANA [facility] [id number] Univers 11:00:00 11:00:00 LAILA ORELLANA i [facility] 2020-01-10 2020-01-[address] [facility] [id number] Univers 10:00:00 10:00:00 WONDIFUL ity o f [facility] 2020-01-04 2020-01-[address] [facility] [id number] Univers 11:30:00 11:30:00 [facility] 2020-01-01 2020-01-[address] [facility] [id number] Univers 08:00:00 08:00:00 ity [facility] 2019-12-21 2019-12-[address] [facility] [id number] Univers 09:30:00 09:30:00 WONDIFUL ity o f [facility] 2019-12-06 2019-12-[address] [facility] [id number] Univers 11:00:00 11:00:00 FABRICIO [facility] 2019-11-30 2019-11-[address] [facility] [id number] Univers 10:30:00 10:30:00 ISAC [facility] 2019-11-29 2019-11-[address] [facility] [id number] Univers 08:15:00 08:15:00 ISACANNETTE flores [facility] 2019-11-23 2019-11-[address] [facility] [id number] Univers 08:00:00 08:00:00 [facility] Results Test Description Test Time [...] 3uL 0.00-0.01 H - XR CHEST 1 [id number] 07:31:00 [facility] : 1975 Sex: F FAX:Rancho Bess MD [phone] [place]: St: [facility] FAX: Neris Estrada MD [phone] Name: LIZBET LANDRY [facility] : 1975 Age/S: 47/F [address] [facility] Unit #: [id number] Loc: [address] [place], [place]: [place] [address] Acct: [id number] Dis Date: Status: ADM IN PHONE #: [phone] E xam Date: 11/24/2022599 FAX #: [phone] Reason: sob EXAMS: CPT CODE: [id number] XR CHEST 1 V 78830 EXAM: - XR CHEST 1 V COMPARISON: 11/23/2022 LOCATION: C3 HISTORY: sob FINDINGS: Single view of the chest. No indwelling lines or tubes. No pneumothorax. The lungs are clear without significant effusi ons. The mediastinal contours are unremarkable/unchanged. No acute osseous findings are present. IMPRESSION: No acute cardiopulmonary abnormality. at 0731 Reported and signed by: Herve Verdugo M.D. CC: Rancho Oreilly MD; Neris Estrada MD Technologist: KEI HERNANDEZ [facility] Date/Time/By: 11/24/2022 (0731) : By: [email or web address] PAGE 1 Signed Report FAX: Rancho Bess MD [phone] [place]: St: [facility] FAX: Neris Estrada MD [phone] Name: LIZBET LANDRY [facility] : 1975 Age/S: 47/F [address] [facility] Unit #: [id number] Loc: [address] [place], [place]: [place] [address] Acct: [id number] Dis Date: Status: ADM IN PHONE #: [phone] Exam Date: 11/24/2022 0600 FAX #: [phone] Reason: sob EXAMS: CPT CODE: [id number] XR CHEST 1 V 33714 (Continued) Orig Print D/T: S: 11/24/2022 (0734) PAGE 2 Signed [id number] 20:15:00 Test Item Value Reference Range Interpretation Comments GLUBED (test code = GLUBED) 95 mg/dL 70-110 N [id number] 14:54:00 Test Item Value Reference Range Interpretation Comments GLUBED (test code = GLUBED) 99 mg/dL 70-110 N [id number] 11:21:00 Test Item Value Reference Range Interpretation Comments GLUBED (test code = GLUBED) 103 mg/dL 70-110 N CBC W/AUTO [id number] 08:38:00 Test Item Value Reference Range Interpretation [...] = 0.03 X10 3uL 0.00-0.01 H NRBC#) [id number] 07:26:00 Test Item Value Reference Range Interpretation Comments GLUBED (test code = GLUBED) 73 mg/dL 70-110 N - XR CHEST 1 [id number] 06:44:00 [facility] : 1975 Sex: F FAX:Rancho Bess MD [phone] [place]: St: [facility] FAX: Neris Estrada MD [phone] [facility] 1975 Age/S: 47/F [address] [facility] [employer] Unit #: [id number] Loc: [address] [place], [place]: [place] [address] Acct: [id number] Dis Date: Status: ADM IN PHONE #: [phone] Exam Date: 11/23/2022 0601 FAX #: [phone] Reason: sob EXAMS: CPT CODE: [id number] XR CHEST 1 V 32951 EXAM: - XR CHEST 1 V COMPARISON: Prior day. LOCATION: HISTORY: sob FINDINGS: Single view of the chest. No indwelling lines/tubes. No pneumothorax. No consolidation or significant effusion. The me diastinal contours are unchanged. IMPRESSION: No acute pulmonary findings. at 0644 Reported and signed by: Herve Verdugo M.D. CC: Rancho Oreilly MD; Neris Estrada MD Technologist: SO CEE [facility] Date/Time/By: 11/23/2022 (0644) : By: [email or web address] PAGE 1 Signed Report FAX: Rancho Bess MD [phone] [place]: St: [facility] FAX: Neris Estrada MD [phone] [facility] 1975 Age/S: 47/F [address] [facility] [employer] Unit #: [id number] Loc: [address] [place], [place]: [place] [address] Acct: [id number] Dis Date: Status: ADM IN PHONE #: [phone] Exam Date: 11/23/2022 0601 FAX #: [phone] Reason: sob EXAMS: CPT CODE: [id number] XR CHEST 1 V 56378 (Continued) Orig Print D/T: S: 11/23/2022 (0647) PAGE 2 Signed ReportCBC W/AUTO [id number] 20:37:00 Test Item Value Reference Range Interpretation [...] = 0.02 X10 3uL 0.00-0.01 H NRBC#) [id number] 20:15:00 Test Item Value Reference Range Interpretation Comments GLUBED (test code = GLUBED) 99 mg/dL 70-110 N - US TRANSVAGINAL NON [id number] 14:00:00 [facility] : 1975 Sex: F FAX:Neris Estrada MD [phone] [place]: F[address] St: ADM [facility]: [facility] 1975 Age/S: 47/F [address] [facility] Unit #: [id number] Loc: [address] [place], [place]: [place] [address] Acct: [id number] Dis Date: Status: ADM IN PHONE #: [phone] Exam Date: 11/22/2022 1248 FAX #: [phone] Reason: PELVIC MASS EXAMS: CPT CODE: [id number] [place] [address] HISTORY: Pelvic mass. Comparison to CT abdomen [...] Terry M.D. CC: Neris Estrada MD Technologist: [id number] 1; [facility] Date/Time/By: 11/22/2022 (1400) : By: [email or web address] PAGE 1 Signed Report FAX: Neris Estrada MD [phone] [place]: St: ADM Name: LIZBET LANDRY [facility] : 1975 Age/S: 47/F [address] Unit #: [id number] Loc: [address] [place], [place]: [place] [address] Acct: [id number] Dis Date: Status: ADM IN PHONE #: [phone] Exam Date: 10/28 1248 FAX #: [phone] Reason: PELVIC MASS EXAMS: CPT CODE: [id number] [place] [address] (Continued) Orig Print D/T: S: 11/22/2022 (1403) PAGE 2 Signed Report- DUP AB/PEL/SC [id number] 14:00:00 [facility] : 1975 Sex: F FAX: Neris Estrada MD [phone] [place]: St: ADM Name: LIZBET LANDRY [facility] : 1975 Age/S: 47/F [address] Unit #: [id number] Loc: [address] [place], [place]: [place] [address] Acct: [id number] Dis Date: Status: ADM IN PHONE #: [phone] Exam Date: 11/22/2022 1248 FAX #: [phone] Reason: MASS ON CT EXAMS: CPT CODE: [id number] DUP AB/PEL/SC COMP 55564 HISTORY: Pelvic mass. Comparison to CT abdomen 11/19/2022 Location Code: B2 TECHNIQUE: Multiple transverse and longitudinal sonographic images were obtained. FINDINGS: The uterus measures 9.3 x 4.5 x 5.5 cm. It is homogeneous in echogenicity. An isoechoic structure in the posterior cul-de-sac measures 5.5 x 3.9 x 5.3 cm d emonstrating minimal internal vascularity. The endometrial stripe measures [...] CC: Neris Estrada MD Technologist: [facility] Date/Time/By: 11/22/2022 (1400) : By: [email or web address] PAGE 1 Signed Report FAX: Neris Estrada MD [phone] [place]: St: ADM Name: LIZBET LANDRY [facility] : 1975 Age/S: 47/F [address] [facility] Unit #: [id number] Loc: [address] [place] [address] [place]: [place] [address] Acct: [id number] Dis Date: Status: ADM IN PHONE #: [phone] Exam Date: 11/22/20228 FAX #: Reason: MASS ON CT EXAMS: CPT CODE: [id number] DUP AB/PEL/SC COMP 18116 (Continued) Orig Print D/T: S: 11/22/2022 (1403) PAGE 2 Signed Report- US PELVIS [id number] 14:00:00 [facility] : 1975 Sex: F FAX:Neris Estrada MD [phone] [place]: St: [facility] FAX: Shreyas Marti [phone] Name: LIZBET LANDRY [facility] : 1975 Age/S: 47/F [address] [facility] Unit #: [id number] Loc: [address] Phys: [place] [address] Acct: [id number] Dis Date: Status: ADM IN PHONE #: [phone] Exam Date: 11/22/2022 1248 FAX #: [phone] Reason: pelvic mass EXAMS: CPT CODE: [id number] US PELVIS COMPLETE 39932 HISTORY: Pelvic mass. Comparison to CT abdomen 11/19/2022 Location Code: B2 TECHNIQUE: Multiple transverse and longitudinal sonographic images were obtained. FINDINGS: The uterus measures 9.3 x 4.5 x 5.5 cm. It is homogeneous in echogenicity. An isoechoic structure in theposterior cul-de-sac measures 5.5 x 3.9 x 5.3 [...] MD; Carmenza Romo MD Technologist: LIV BLOOM [facility] Date/Time/By: 11/22/2022 (1400) : By: [email or web address] PAGE 1 Signed Report FAX: Neris Estrada MD [phone] [place]: St: [facility] FAX: Shreyas Marti [phone] Name: LIZBET LANDRY [facility] : 1975 Age/S: 47/F [address] [facility] Unit #: [id number] Loc: [address] Phys: [place] [address] Acct: [id number] Dis Date: Status: ADM IN PHONE #: [phone] Exam Date: 11/22/2022 1248 FAX #: [phone] Reason: pelvic mass EXAMS: CPT CODE: [id number] US PELVIS COMPLETE 36765 (Continued) Orig Print D/T: S: 11/22/2022 (3683) PAGE 2 Signed [id number] 08:56:00 Test Item Value Reference Range Interpretation Comments GLUBED (test code = GLUBED) 100 mg/dL 70-110 N CBC W/AUTO [id number] 07:31:00 Test Item Value Reference Range Interpretation [...] X10 3uL 0.00-0.01 N NRBC#) COMPREHENSIVE METABOLIC [id number] 07:28:00 Test Item Value Reference Range Interpretation [...] the recommended for sudhir for GFRby the N ational Kidney Foundati on for Adults.The GFR will [...] code = ALKP) - XR CHEST 1 [id number] 06:51:00 [facility] : 1975 Sex: F FAX:Rancho Bess MD [phone] [place]: St: [facility] FAX: Neris Estrada MD [phone] Name: LACEY,[facility]ZBET [facility] 1975 Age/S: 47/F [address] [facility] Unit #: [id number] Loc: [address] [place], [place]: [place] [address] Acct: [id number] Dis Date: Status: ADM IN PHONE #: [phone] Exam Date: 11/22/2022501 FAX #: [phone] Reason: sob EXAMS: CPT CODE: [id number] XR CHEST 1 V 36011 EXAM: - XR CHEST 1 V COMPARISON: 11/19/2022 LOCATION: H47 HISTORY: sob FINDINGS: Single view of the chest. Unchanged indwelling lines/tubes. No pneumothorax. No consolidation or significant effusion.The mediastinal contours are unchanged. IMPRESSION: No acute pulmonary findings. at 0651 Reported and signed by: Herve Verdugo M.D. CC: Rancho Oreilly MD; Neris Estrada MD Technologist: GINGER LI [facility] Date/Time/By: 11/22/2022([facility]) : By: [email or web address] PAGE 1 Signed Report FAX: Rancho Bess MD [phone] [place]: St: ADM FAX: Neris Estrada MD [phone] Name: LIZBET LANDRY [facility] : 1975 Age/S: 47/F [address] [facility] Unit #: [id number] Loc: [address] [place], [place]: [place] [address] Acct: [id number] Date: Status: ADM IN PHONE #: [phone] Exam Date: 11/22/2022501 FAX #: [phone] Reason: sob EXAMS: CPT CODE: [id number] XR CHEST 1 V 49067 (Continued) Orig Print D/T: S: 11/22/2022 (0654) PAGE 2 Signed [id number] 21:06:00 Test Item Value Reference Range Interpretation Comments GLUBED (test code = GLUBED) 102 mg/dL 70-110 N [id number] 20:10:00 Test Item Value Reference Range Interpretation Comments GLUBED (test code = GLUBED) 104 mg/dL 70-110 N CBC W/MANUAL [id number] 14:02:00 Test Item Value Reference Range Interpretation [...] (test code NORMAL = PLTMORPH) ARTERIAL BLOOD [id number] 10:49:00 Test Item Value Reference Range Interpretation [...] MAL = METHGB) <2.0POTENTIALLY TOXIC >20.0 RETICULOCYTE [id number] 08:56:00 Test Item Value Reference Range Interpretation Comments RETIC COUNT (AUTOMATED) (test 4.50 % 0.58-2.72 H code = RETICA) RETIC COUNT ABSOLUTE (test 0.0896 X10 6 uL 0.0237-0.1295 N code = RET#) IMMATURE RETICULOCYTE 34.0 % 0.0-29.5 H FRACTION (test code = IRF) RETICULOCYTE HGB EQUIVALENT 32.5 pg 27.4-42.0 N (test code = RETHE) [id number] 08:38:00 Test Item Value Reference Range Interpretation Comments GLUBED (test code = GLUBED) 110 mg/dL 70-110 N BILIRUBIN [id number] 08:35:00 Test Item Value Reference Range Interpretation Comments BILIRUBIN TOTAL (test code = BILT) 5.7 mg/dl 0.0-1.0 H LACTIC DEHYDROGENASE(LDH)2022-11-21 08:35:00 Test Item Value Reference Range Interpretation Comments LACTIC DEHYDROGENASE(LDH) (test 1847 Units/L 81-234 HH code = LDH) BASIC METABOLIC [id number] 08:34:00 Test Item Value Reference Range Interpretation [...] the recommended for sudhir for GFRby the [facility] Kid[facility] Foundati on for Adults.The GFR will not calculate if th e sex is unknown or if thepatient's ag e is <18 years. CREATININE (test 1.08 mg/dL 0.60-1.30 N code = CREAT) ESTIMATED CREAT 50 mL/min >30 CLEARANCE (test code = ECRCL) CALCIUM (test code 8.7 mg/dl 8.0-10.5 N = CA) [id number] 21:52:00 Test Item Value Reference Range Interpretation Comments HGBA1C% (test code = <3.8 %A1C 4.8-6.0 L TEST PE RFORMED AT HGBA1C%) [facility] ESTIMATED AVERAGE 62 MG/DL GLUCOSE (test code = EAG) UNABLE TO GET THE RESULT---[facility]--NOTIFIED WESLEY RICHARDSON AT 1924.[id number] 21:04:00 Test Item Value Reference Range Interpretation Comments GLUBED (test code = GLUBED) 95 mg/dL 70-110 N [id number] 16:45:00 Test Item Value Reference Range Interpretation Comments GLUBED (test code = GLUBED) 89 mg/dL 70-110 N LACTIC [id number] 15:59:00 Test Item Value Reference Range Interpretation Comments LACTIC ACID (test code = LACT) 1.8 mmol/L 0.4-2.0 N RETICULOCYTE [id number] 15:45:00 Test Item Value Reference Range Interpretation Comments RETIC COUNT (AUTOMATED) (test 3.34 % 0.58-2.72 H code = RETICA) RETIC COUNT ABSOLUTE (test 0.0568 X10 6 uL 0.0237-0.1295 N code = RET#) IMMATURE RETICULOCYTE 24.4 % 0.0-29.5 N FRACTION (test code = IRF) RETICULOCYTE HGB EQUIVALENT 30.5 pg 27.4-42.0 N (test code = RETHE) CBC W/MANUAL [id number] 14:18:00 Test Item Value Reference Range Interpretation [...] NORMAL (test code = PLTMORPH) CBC W/AUTO [id number] 14:08:00 Test Item Value Reference Range Interpretation [...] 0.00-0.01 H code = NRBC#) CBC W/AUTO [id number] 12:22:00 Test Item Value Reference Range Interpretation [...] H (test code = NRBC#) BASIC METABOLIC [id number] 12:12:00 Test Item Value Reference Range Interpretation [...] the recommended for sudhir for GFRby the [facility] Kidney Foundati on for Adults.The GFR will not calculate if th e sex is unknown or if thepatient's ag e is <18 years. CREATININE (test 1.37 mg/dL 0.60-1.30 H code = CREAT) ESTIMATED CREAT 39 mL/min >30 CLEARANCE (test code = ECRCL) CALCIUM (test code 8.6 mg/dl 8.0-10.5 N = CA) COVID 19 INHOUSE [id number] 09:35:00 Test Item Value Reference Range Interpretation Comments COVID 19 INHOUSE NEGATIVE NEGATIVE Negative re sults should be AG (test code = treated as p resumptive and [id number]) ifinconsistent with clinical signs and sympt oms, or necessaryfor pa tient management, kai uld be tested with an alterna tivemolecular assay. Negative results do not preclude AQSE-RoC-1metpf tion and should not be u sed as the sole basis forp atient management deci sions. Negative result s should beconsidered in the context of a patient's recent exposures,histo ry, presence of clinical sig ns and symptoms consis tentwith COVID-19. - XR CHEST 1 [id number] 20:07:00 [facility] C[facility] LAN[facility]NE : 1975 Sex: F FAX: Dawson Herrera DO [phone] [place]: St: ADM FAX: James Bundy Name: LIZBET LANDRY [facility] : 1975 Age/S: 47/F [address] [facility] Unit #: [id number] Loc: [address] [place], [place] Phys: James BundyP [address] Acct: [id number] Dis Date: Status: ADM IN PHONE #: [phone] Exam Date: 11/19/20221958 FAX #: [phone] Reason: OPACITIES EXAMS: CPT CODE: [id number] XR CHEST 1 V 74934 EXAM: - XR CHEST 1 V HISTORY: [...] Signed by Marifer Hearn on 11/19/2022 at 2006 Reported and signed by: Zane Hearn M.D. CC: Dawson Herrera DO; James Bundy Technologist: GINGER LI Trnn[facility] Date/Time/By: 11/19/2022 (2006) : By: [email or web address] PAGE 1 Signed Report FAX: Dawson Herrera DO [phone] [place]: St: [facility] FAX: James Bundy Name: LIZBET LANDRY [facility] : 1975 Age/S: 47/F [address] [facility] Unit #: [id number] Loc: LIN[place], [place] Phys: James Bundy [address] Acct: [id number] Dis Date: Status: ADM IN PHONE #: [phone] Exam Date: 11/19/20221958 FAX #: [phone] Reason: OPACITIES EXAMS: CPT CODE: [id number] XR CHEST 1 V 94619 () Orig Print D/T: S: 11/19/2022 (2009) PAGE 2 Signed Report- CT ABD PELVIS [id number] 18:37:00 [facility] : 1975 Sex: F FAX:James Bundy [place]: St: REG Name: LIZBET LANDRY [facility] : 1975 Age/S: 47/F [address] [facility] Unit: [id number] Loc: [address] Phys: James Bundy [address] Acct: [id number] Dis Date: Status: REG ER PHONE #: [phone] Exam Date: 11/19/2022 180 FAX #: [phone] Reason: RLQ PAIN EXAMS: CPT CODE: [id number] CT ABD PELVIS W/CONT 70595 EXAMINATION: - CT ABD PELVIS W/CONT CLINICAL INDICATION: Female, 47 years old with [...] Mild patchy opacities in the lung bases andlikely dependent atelectasis. Liver: Prominent hepatomegaly measuring 25 cm craniocaudal dimension. No focal lesions Bile ducts are physiologically dilated following cholecystectomy. Gallbladder: Surgically absent. Pancreas: Normal appearance without focal lesion. Spleen: Prominent splenomegaly measuring 20.5 cm in length. Adrenals: Normal configuration. Kidneys and ureters: Normal size and contour. No hydronephrosis. Bladder/Reproductive Organs: Normal in appearance. 3.7 cm rounded masslike area atthe left posterior pelvic cul-de-sac could be a exophytic fibroid at the posterior lower uterine segment. Very anteverted uterus with nabothian cyst could simulate this appearance. Adnexal lesion is not excluded. PAGE 1 Signed Report (CONTINUED) FAX: James Bundy [place]: St: REG Name: LIZBET LANDRY [facility] : 1975 Age/S: 47/F [address] [facility] Unit: [id number] Loc: [facility] [place], [place] Phys: James Bundy [address] Acct: [id number] Dis Date: Status: REG ER PHONE #: [phone] Exam Date: 11/19/2022 1803 FAX #: [phone] Reason: RLQ PAIN EXAMS: CPT CODE: [id number] CT ABD PELVIS W/CONT [id number] (Continued) Bowel: Loops of bowel without wall [...] Tiny fat-containing umbilical hernia. Bones: Degenerative change involvingthe spine, sacroiliac joints and hips is present. IMPRESSION: No acute abdominopelvic abnormality. No CT evidence of acute appendicitis. Hepatosplenomegaly with massive splenomegaly. Moderate fecal material in the cecum, ascending and transverse colon may be related to constipation. No bowel obstruction identified. Mass like density in the left posterior pelvic cul-de-sac may be an exophytic fibroid or related to uterine positioning. Follow-up pelvic ultrasound recommended to exclude adnexal lesion. at 1837 Reported and signed by: MD Chemo CC: James ALDRICH Litz Technologist: Antonette Desai Trnscrd Dt/Tm: 11/19/2022 (1836) [id number] Orig Print D/T: S: 11/19/2022 (1840 PAGE 2 Signed [id number] 17:13:00 Test Item Value Reference Range Interpretation Comments LIPASE (test code = LIP) 129 Units/L 65.0-230.0 N TROP-I HIGH [id number] 17:13:00 Test Item Value Reference Range Interpretation Comments TROP-I HIGH 9.2 pg/mL 0.0-51.4 N CAUTION: Units of the SENSITIVITY (test current TR OPI-HS test code = TROPIHS) methodology( pg/mL) differ from the prior test methodolog y (ng/mL) by afac tor of 1000. -------- -------- ---99th Percentile: Fem ales: 0.0-51.4 pg/mL Males: 0.0-76.2 pg/drug discovery informatics specialist hese results were ob tained using Dimension EXL TnIHreagent. Re sults from different methodologies s hould not becompared to one another as rica titative results may norma y bymethod. BASIC METABOLIC [id number] 17:13:00 Test Item Value Reference Range Interpretation [...] (test code = ECRCL) HEPATIC FUNCTION PANEL [id number] 17:13:00 Test Item Value Reference Range Interpretation [...] 50.0-136.0 N code = ALKP) CBC W/AUTO [id number] 16:54:00 Test Item Value Reference Range Interpretation [...] 0.00 X10 3uL 0.00-0.01 N NRBC#) PROTHROMBIN [id number] 16:53:00 Test Item Value Reference Range Interpretation Comments PROTHROMBIN TIME 10.6 SECONDS 9.9-12.8 N PATIENT (test code = PTP) INTERNATIONAL NORMAL 0.9 0.89-1.14 N THE INR IS TO BE USED RATIO (test code = ONLY FOR MONITORING INR) ORAL ANTICOAGULANTTH ERAPY. THE FOLLOWING A RE SUGGESTED RANGE S FROM [facility] MCMAHAN LEGE OF CHEST PHYSICIANS:YOLANDA CATION INR VALUEPROPHY [...] D ANTIBODIES 2.5 - 3.5 THROMBOPLASTIN TIME [id number] 16:53:00 Test Item Value Reference Range Interpretation Comments THROMBOPLASTIN TIME 30.90 SECONDS 25.86-36.07 N [facility] d [facility] PARTIAL (test code = Therape utic Range - PTT) APTT of 55.8-85 .4 secondscorrelat es with plasma heparin concentration o f 0.2-0.4 u/mL URINALYSIS [id number] 15:53:00 Test Item Value Reference Range Interpretation [...] >10 #/hpf code = SQU) UR HCG [id number] 15:53:00 Test Item Value Reference Range Interpretation Comments UR HCG QUAL (test code = HCGQLU) NEGATIVE NEGATIVE COMP. METABOLIC PANEL ([id number])2022-10-29 21:16:00 Test Item Value Reference Range Interpretation Comments NA (test code = 140 mmol/L 135-145 7218920989) K (test code = 4.1 mmol/L 3.5-5.0 8560789611) CL (test code = 108 mmol/L 98-108 1042624629) CO2 TOTAL (test code = 25 mmol/L 23-31 3789419002) AGAP (test code = 7 2-16 4296402264) BUN (test code = 7 mg/dL 7-23 2607308855) GLUCOSE (test code = 112 mg/dL 70-110 H 9297765959) CREATININE (test code = 0.96 mg/dL 0.50-1.04 2168649384) TOTAL BILI (test code = 0.8 mg/dL 0.1-1.0 3040225776) CALCIUM (test code = 8.1 mg/dL 8.6-10.6 L 4652198602) T PROTEIN (test code = 6.3 g/dL 6.3-8.2 2370248130) ALBUMIN (test code = 4.2 g/dL 3.5-5.0 7272622140) ALK PHOS (test code = 94 U/L 34-122 5491116897) ALTv (test code = 28 U/L 5-35 1742-6) AST(SGOT) (test code = 36 U/L 13-40 7268621246) eGFR (test code = 61.8 mL/min/1.73m2 0405028404) AREN (test code = AREN) Association of [...] tests). Lab Interpretation Abnormal (test code = 54248-0) [facility] WITH [id number] 21:11:40 Test Item Value Reference Range Interpretation [...] (test code = 86.2 fL 39.0-49.9 H 13332-1) RDW-CV (test code = 22.4 % 12.0-15.5 H 788-0) PLT (test code = 151 See_Comment L [Automated 777-3) message] The sy stem which generated this result transmitted reference range : 166 - 358 10*3/ ?L. The reference r stefanie was not used to interpret this result as normal/abnormal . MPV (test code = 12.4 fL 9.5-12.9 20231-7) NRBC/100 WBC (test 0.0 See_Comment [Automat ed code = 4246560917) message] The system which generated this result transmitted reference range : 0.0 - 10.0 /100 WBCs. The refer ence range was not u sed to interpret th is result as normal/abnormal . NRBC x10^3 (test code See_Comment [Auto mated = 3426456271) message] The s ystem which generated this result transmitted reference range : 10*3/?L. The reference range was not used to interpret this result as normal/abnormal . GRAN MAT (NEUT) % 69.5 % (test code = 770-8) IMM GRAN % (test code 0.70 % = 3420549197) LYMPH % (test code = 19.9 % 736-9) MONO % (test code = 7.5 % 5905-5) EOS % (test code = 1.7 % 713-8) BASO % (test code = 0.7 % 706-2) GRAN MAT x10^3(ANC) 2.86 10*3/uL 1.88-7.09 (test code = 8777408940) IMM GRAN x10^3 (test 0.03 10*3/uL 0.00-0.06 code = 8461346157) LYMPH x10^3 (test code 0.82 10*3/uL 1.32-3.29 L = 731-0) MONO x10^3 (test code 0.31 10*3/uL 0.33-0.92 L = 742-7) EOS x10^3 (test code = 0.07 10*3/uL 0.03-0.39 711-2) BASO x10^3 (test code 0.03 10*3/uL 0.01-0.07 = 704-7) Lab Interpretation Abnormal (test code = 98825-0) [facility]W/[id number]-[id number] 10:00:00 Test Item Value Reference Range Interpretation Comments GLUCOSE-Q (test code 88 mg/dL 65-99 ? = 2345-7) Fasting referen ce interval UREA NITROGEN (BUN)-Q 14 mg/dL 7-25 (test code = 3094-0) CREATININE-Q (test 1.39 mg/dL 0.50-0.99 H code = 2160-0) EGFR-Q (test code = 47 See_Comment L The eGFR is based 14017-2) on the CKD-EPI 2020 equation. To calculate the n ew eGFR from a previous Creatinine or Cystatin Cresul t, go to [email or web address] ne y.org/profmis na rosalinda/kdoqi/gfr%5F ca lculator [Automated message] The [...] . SODIUM-Q (test code = 139 mmol/L 759-631 8667-2) POTASSIUM-Q (test 3.5 mmol/L 3.5-5.3 code = 2823-3) CHLORIDE-Q (test code 105 mmol/L 98-110 = 2075-0) CARBON DIOXIDE-Q 23 mmol/L 20-32 (test code = 8-9) CALCIUM-Q (test code 8.9 mg/dL 8.6-10.2 = 14289-3) AREN (test code = AREN) PERFORMED BY [employer] [place]; [address] [place] [address]; LORRIE QUIROZ MD Lab Interpretation Abnormal (test code = 07594-2) [facility]-Glucose [id number] 11:44:22 Test Item Value Reference Range Interpretation Comments POC-Glucose Meter (test 156 mg/dL 70-110 H : TE STED AT [facility] code = 1538) [address] [place] [address], [facility] 30: Privacy Specialist/Techni waylon ID = [id number] for SREE MARTINEZ Lab Interpretation (test Abnormal code = 36975-0) [facility]-Glucose [id number] 11:44:22 Test Item Value Reference Range Interpretation Comments POC-Glucose Meter (test 156 mg/dL 70-110 H : TE STED AT [facility] code = 1538) [address] [place] [address], [facility] 30: Privacy Specialist/Techni waylon ID = [id number] for SREE MARTINEZ Lab Interpretation (test Abnormal code = 45085-7) [facility]-Glucose [id number] 11:44:22 Test Item Value Reference Range Interpretation Comments POC-Glucose Meter (test 156 mg/dL 70-110 H : TE STED AT [facility] code = 1538) [address] [place] [address], [facility] 30: Privacy Specialist/Techni waylon ID = [id number] for DAVID MARTINEZISTIE Lab Interpretation (test Abnormal code = 19216-6) [facility] [id number] 11:44:22 Test Item Value Reference Range Interpretation Comments POC-Glucose Meter (test 156 mg/dL 70-110 H : TE STED AT [facility] code = 1538) [address] [place] [address], 770 30: Privacy Specialist/Techni waylon ID = [id number] for DAVID MARTINEZISTIE Lab Interpretation (test Abnormal code = 20239-5) [facility] [id number] 11:44:22 Test Item Value Reference Range Interpretation Comments POC-Glucose Meter (test 156 mg/dL 70-110 H : TE STED AT [facility] code = 1538) [address] [place] [address], [facility] 30: Privacy Specialist/Techni waylon ID = [id number] for DAVID MARTINEZISTIE Lab Interpretation (test Abnormal code = 25780-3) [facility]-Glucose [id number] 11:44:22 Test Item Value Reference Range Interpretation Comments POC-Glucose Meter (test 156 mg/dL 70-110 H : TE STED AT [facility] code = 1538) [address] [place] [address], [facility] 30: Privacy Specialist/Techni waylon ID = [id number] for SUNITA MARTINEZIE Lab Interpretation (test Abnormal code = 42010-0) [facility]-GLUCOSE [id number] 11:44:22 Test Item Value Reference Range Interpretation Comments POC-GLUCOSE METER 156 mg/dL 70-110 H : TESTED A T [facility] 6720 (BEAKER) (test code = [facility], 1538) [address]: Privacy Specialist/Techni waylon ID = [id number] for PEPE MEGHA, SREE POCT-GLUCOSE [id number] 08:01:18 Test Item Value Reference Range Interpretation Comments POC-GLUCOSE METER 116 mg/dL 70-110 H : TESTED A T [facility] 6720 (BEAKER) (test code = [facility], 1538) [address]: Privacy Specialist/Techni waylon ID = [id number] for PEPE [place], SREE [id number] 05:04:32 Test Item Value Reference Range Interpretation Comments HAPTOGLOBIN (BEAKER) (test code = 30 mg/dL 14-258 366) Privacy Specialist ID Jonathan STEWARD LLACTATE DEHYDROGENASE (LDH)2022-10-25 04:52:08 Test Item Value Reference Range Interpretation Comments LACTATE DEHYDROGENASE (BEAKER) (test 416 U/L 125-220 H code = 635) Privacy Specialist ID Jonathan STEWARD TBTJHDSDVG7589-05-66 04:52:07 Test Item Value Reference Range Interpretation Comments MAGNESIUM (BEAKER) (test code = 2.0 mg/dL 1.6-2.6 627) Privacy Specialist ID Jonathan STEWARD LHEPATIC FUNCTION [id number] 04:52:07 Test Item Value Reference Range Interpretation [...] (test code = 18 U/L 6-55 347) Privacy Specialist ID Jonathan STEWARD LBASIC METABOLIC [id number] 04:52:06 Test Item Value Reference Range Interpretation [...] (test code = 697) EGFR (BEAKER) 50 Interpretati on of eGFR (test code = mL/min/1.73 values [...] not appl icable for dialysis patien ts Privacy Specialist ID - PIAYA LCBC W/PLT COUNT & AUTO [id number] 04:03:09 Test Item Value Reference Range Interpretation [...] PERCENT (BEAKER) (test code = 2801) RETICULOCYTE [id number] 04:03:06 Test Item Value Reference Range Interpretation Comments RETICULOCYTE COUNT PCT (BEAKER) (test 26.7 % 0.5-1.7 H code = 575) Privacy Specialist ID - 6000POCT-GLUCOSE UCMEH7974-91-86 23:24:20 Test Item Value Reference Range Interpretation Comments POC-GLUCOSE METER 129 mg/dL 70-110 H : TESTED A T [facility] 6720 (BEAKER) (test code = [facility], 153) [address]: Privacy Specialist/Techni waylon ID = [id number] for JEFF ORIN POCT-GLUCOSE [id number] 17:45:20 Test Item Value Reference Range Interpretation Comments POC-GLUCOSE METER 214 mg/dL 70-110 H : TESTED A T [facility] 6720 (BEAKER) (test code = [facility], 153) [address]: Privacy Specialist/Techni waylon ID = [id number] for TE WILFREDO, NAVI POCT-GLUCOSE [id number] 11:53:05 Test Item Value Reference Range Interpretation Comments POC-GLUCOSE METER 154 mg/dL 70-110 H : TESTED A T [facility] 6720 (BEAKER) (test code = [facility], 153) [address]: Privacy Specialist/Techni waylon ID = [id number] for TE WILFREDO, NAVI POCT-GLUCOSE [id number] 07:48:48 Test Item Value Reference Range Interpretation Comments POC-GLUCOSE METER 116 mg/dL 70-110 H : TESTED A T [facility] 6720 (BEAKER) (test code = [place], 1538) [address]: Privacy Specialist/Techni waylon ID = [id number] for NAVI LOWE HEPATIC FUNCTION [id number] 04:05:23 Test Item Value Reference Range Interpretation [...] (test code = 19 U/L 6-55 347) Privacy Specialist ID - NEELAM WSpecimen slightly ictericLACTATE DEHYDROGENASE (LDH) 2022-10-24 04:05:23 Test Item Value Reference Range Interpretation Comments LACTATE DEHYDROGENASE (BEAKER) (test 410 U/L 125-220 H code = 635) Privacy Specialist ID - NEELAM WC-REACTIVE [id number] 04:05:23 Test Item Value Reference Range Interpretation Comments C-REACTIVE PROTEIN (BEAKER) (test 0.38 mg/dL 0.00-0.50 code = 676) Privacy Specialist ID - NEELAM QOTZLXYJMB9159-95-73 04:05:22 Test Item Value Reference Range Interpretation Comments MAGNESIUM (BEAKER) (test code = 2.1 mg/dL 1.6-2.6 627) Privacy Specialist ID - NEELAM WBASIC METABOLIC [id number] 04:05:22 Test Item Value Reference Range Interpretation [...] 30-44 G4 Severl y decreased 15-29 G5 Kidne y failure <15Reported eGF R is based on the CKD-EPI 2020 equation that d oes not use a race coefficientEsti mated GFR is not as accur ate as Creatinine Katelyn lovett in predicting glom erular filtration rate . Estimated GFR is not appl icable for dialysis patien ts Privacy Specialist ID - NEELAM WSpecimen slightly dhagttlCWTFFEJOJVV0304-93-70 04:00:05 Test Item Value Reference Range Interpretation Comments HAPTOGLOBIN (BEAKER) (test code = 15 mg/dL 14-258 366) Privacy Specialist ID - ADMINCBC W/PLT COUNT & AUTO [id number] 03:40:48 Test Item Value Reference Range Interpretation [...] PERCENT (BEAKER) (test code = 2801) RETICULOCYTE [id number] 03:40:45 Test Item Value Reference Range Interpretation Comments RETICULOCYTE COUNT PCT (BEAKER) (test 25.4 % 0.5-1.7 H code = 575) Privacy Specialist ID - 6000POCT-GLUCOSE GTDFD5846-09-08 22:02:38 Test Item Value Reference Range Interpretation Comments POC-GLUCOSE METER 142 mg/dL 70-110 H : TESTED A T [facility] 6720 (BEAKER) (test code = [place], 1538) [address]: Privacy Specialist/Techni waylon ID = [id number] for KEIRA BERG POCT-GLUCOSE [id number] 17:37:11 Test Item Value Reference Range Interpretation Comments POC-GLUCOSE METER 168 mg/dL 70-110 H : TESTED A T [facility] 6720 (BEAKER) (test code = [facility], 1538) [address]: Privacy Specialist/Techni waylon ID = [id number] for JEAN MARIE VILLALOBOS NAVI POCT-GLUCOSE [id number] 12:37:13 Test Item Value Reference Range Interpretation Comments POC-GLUCOSE METER 166 mg/dL 70-110 H : TESTED A T [facility] 6720 (BEAKER) (test code = [facility], 1538) [address]: Privacy Specialist/Techni waylon ID = [id number] for JEAN MARIE VILLALOBOS, NAVI Antibody aqqjiesijotnal5918-50-87 12:29:00 Test Item Value Reference Range Interpretation [...] sued. Electronic Sign ature: Vik Renae M.D. [facility] ukekpqyrlwjhoq0948-77-96 12:29:00 Test Item Value Reference Range Interpretation [...] sued. Electronic Sign ature: Vik Renae M.D. [facility] leumprjrqhkxio4308-40-36 12:29:00 Test Item Value Reference Range Interpretation [...] ionic strength solution. RBCs with a positive RANOLD ca n be expected to hav e decreased in vi vo survival. Clini cipriano correlation and monitoring for hemolysis is aguilar ggested. Should transfus ion be required, Rh an d Gin pheno-matched, crossmatch comp atible RBCs will be is sued. Electronic Sign ature: Vik Renae M.D. [facility] bkbiakxscqcbew4743-71-41 12:29:00 Test Item Value Reference Range Interpretation [...] sued. Electronic Sign ature: Vik Renae M.D. [facility] fcttarssvkklws7665-18-43 12:29:00 Test Item Value Reference Range Interpretation [...] sued. Electronic Sign ature: Vik Renae M.D. [facility] iuzbaqlvgcpdcu7715-15-26 12:29:00 Test Item Value Reference Range Interpretation [...] transfus ion be required, Rh an d Victoria pheno-matched, crossmatch comp atible RBCs will be is sued. Electronic Sign ature: Vik Renae M.D. [facility] [id number] 09:38:23 Test Item Value Reference Range Interpretation Comments POC-GLUCOSE METER 112 mg/dL 70-110 H : TESTED A T [facility] 67[address] (BEAKER) (test code = [place], 1538) [address]: Privacy Specialist/Techni waylon ID = [id number] for NAVI LOWE HEMOGLOBIN [id number] 08:54:11 Test Item Value Reference Range Interpretation [...] 5.7- 6.4% indicates increased risk for diabetes (prediabetes)."Privacy Specialist ID - ADM HALPJZSC5520-49-64 05:49:52 Test Item Value Reference Range Interpretation Comments FERRITIN (BEAKER) (test code = 371.94 ng/mL 5.00-275.00 H 361) Privacy Specialist ID - NEIL RBNCTXLGCFYY8017-22-54 05:24:24 Test Item Value Reference Range Interpretation Comments HAPTOGLOBIN (BEAKER) (test code = < mg/dL 14-258 L 366) Privacy Specialist ID - ADMINC-REACTIVE VQKZGMH7385-81-16 05:15:33 Test Item Value Reference Range Interpretation Comments C-REACTIVE PROTEIN (BEAKER) (test 0.67 mg/dL 0.00-0.50 H code = 676) Privacy Specialist ID - NEIL GHEPATIC FUNCTION [id number] 05:15:32 Test Item Value Reference Range Interpretation [...] (test code = 20 U/L 6-55 347) Privacy Specialist ID - NEIL GLACTATE DEHYDROGENASE (LDH)2022-10-23 05:15:32 Test Item Value Reference Range Interpretation Comments LACTATE DEHYDROGENASE (BEAKER) (test 443 U/L 125-220 H code = 635) Privacy Specialist ID - NEIL GBASIC METABOLIC [id number] 05:15:31 Test Item Value Reference Range Interpretation [...] not appl icable for dialysis patien ts Privacy Specialist ID - NEIL AOPTIYLABF6644-00-27 05:15:31 Test Item Value Reference Range Interpretation Comments MAGNESIUM (BEAKER) (test code = 2.1 mg/dL 1.6-2.6 627) Privacy Specialist ID Jonathan TREJO GCBC W/PLT COUNT & AUTO [id number] 04:59:58 Test Item Value Reference Range Interpretation [...] PERCENT (BEAKER) (test code = 2801) RETICULOCYTE [id number] 04:59:04 Test Item Value Reference Range Interpretation Comments RETICULOCYTE COUNT PCT (BEAKER) (test 25.8 % 0.5-1.7 H code = 575) Privacy Specialist ID - [id number] ID - 6000POCT-GLUCOSE QIKOT6484-51-79 22:53:45 Test Item Value Reference Range Interpretation Comments POC-GLUCOSE METER 161 mg/dL 70-110 H : TESTED A T [facility] 6720 (BEAKER) (test code = ROZ Gutiérrez [facility], 1538) [address]: Privacy Specialist/Techni waylon ID = [id number] for DA TREVOR SUNSHINE RAD, ABDOMEN/KUB, 1 VIEW [id number] 20:13:00Reason for exam:->[facility]d [facility] LIZBETJs [place]GAS : 1975 Sex: FFINAL REPORT Abdomen x-ray [...] 95-100% range. PERIPHERAL BLOOD SMEAR - HOLD [id number] 13:47:13 Test Item Value Reference Range Interpretation Comments PERIPHERAL SMEAR SAVE Saved 1 slide at 1346 (BEAKER) (test code = 1815) [id number] 12:57:37 Test Item Value Reference Range Interpretation Comments HAPTOGLOBIN (BEAKER) (test code = < mg/dL 14-258 L 366) Privacy Specialist ID - ADMINVITAMIN [id number] 12:33:39 Test Item Value Reference Range Interpretation Comments VITAMIN B12 (BEAKER) (test code = 1532 pg/mL 213-816 H 774) Privacy Specialist ID - TCRLSSPHKZCVG1383-54-69 12:33:39 Test Item Value Reference Range Interpretation Comments FERRITIN (BEAKER) (test code = 418.77 ng/mL 5.00-275.00 H 361) Privacy Specialist ID - LWAHCEQZZEMFTQ2643-85-25 12:15:37 Test Item Value Reference Range Interpretation Comments MAGNESIUM (BEAKER) (test code = 2.0 mg/dL 1.6-2.6 627) Privacy Specialist ID - ADMINBILIRUBIN, PMBRQO2191-99-59 12:15:37 Test Item Value Reference Range Interpretation Comments BILIRUBIN DIRECT (BEAKER) (test 0.6 mg/dL 0.1-0.5 H code = 706) Privacy Specialist ID - ADMINLACTATE DEHYDROGENASE (LDH)2022-10-22 12:15:37 Test Item Value Reference Range Interpretation Comments LACTATE DEHYDROGENASE (BEAKER) (test 460 U/L 125-220 H code = 635) Privacy Specialist ID - ADMINCOMPREHENSIVE METABOLIC [id number] 12:15:36 Test Item Value Reference Range Interpretation [...] not appl icable for dialysis patien ts Privacy Specialist ID - ADMINIRON, TIBC, % SAT. (WITHOUT FERRITIN)2022-10-22 12:07:17 Test Item Value Reference Range Interpretation Comments IRON (BEAKER) (test code = 547) 86.0 ug/dL 40.0-160.0 TOTAL IRON BINDING CAPACITY 306 ug/dL 250-450 (BEAKER) (test code = 769) IRON % SATURATION (2) (BEAKER) 28 % 20-55 (test code = 2590) Privacy Specialist ID - ADMINRETICULOCYTE LLLLH1553-99-89 12:06:15 Test Item Value Reference Range Interpretation Comments RETICULOCYTE COUNT PCT (BEAKER) (test 24.8 % 0.5-1.7 H code = 575) Privacy Specialist ID - 6000Operator ID - 6000PT/ARHL4314-45-34 12:02:33 Test Item Value Reference Range Interpretation [...] mechanical heart valves.CBC W/PLT COUNT & AUTO [id number] 12:00:27 Test Item Value Reference Range Interpretation [...] 0.00-1.00 PERCENT (BEAKER) (test code = 2801) [id number] 11:58:50 Test Item Value Reference Range Interpretation Comments FIBRINOGEN LEVEL (BEAKER) (test 285 mg/dl 225-434 code = 658) THYROID STIMULATING [id number] 04:51:23 Test Item Value Reference Range Interpretation Comments TSH (test code = See_Comment Biotin has been 2126560108) reported to cau se a negative bias, interpret resul ts relative to pat ient's use of biotin. [Automated mess age] The system Visto generated this result transmitted ref erence range: 0.45 - 4 .70 mIU/L. The refe rence range was not u sed to interpret this result as normal/abnor mal. Lab Interpretation (test Normal code = 76123-0) [facility] [id number] 04:26:53 Test Item Value Reference Range Interpretation Comments FREE T4 (test code = See_Comment [Autom ated message] 0141793919) The system Visto generated this result transmitted ref erence range: 0.78 - 2 .20 ng/dL:. The ref erence range was not u sed to interpret this result as normal/abnor mal. Lab Interpretation (test Normal code = 03393-3) [facility] METABOLIC PANEL (12615)2022-10-18 23:04:17 Test Item Value Reference Range Interpretation Comments NA (test code = 141 mmol/L 135-145 0507763276) K (test code = 5.1 mmol/L 3.5-5.0 H 9807310489) CL (test code = 109 mmol/L 98-108 H 7292144212) CO2 TOTAL (test code = 21 mmol/L 23-31 L 8492537819) AGAP (test code = 2-16 1326949714) BUN (test code = 7 mg/dL 7-23 4957590944) GLUCOSE (test code = 104 mg/dL 70-110 3670176968) CREATININE (test code = 1.41 mg/dL 0.50-1.04 H 5810405569) TOTAL BILI (test code = 0.8 mg/dL 0.1-1.8 6442599469) CALCIUM (test code = 9.1 mg/dL 8.6-10.6 0670009267) T PROTEIN (test code = 7.5 g/dL 6.3-8.2 7359332768) ALBUMIN (test code = 5.0 g/dL 3.5-5.0 8799061380) ALK PHOS (test code = 139 U/L 34-122 H 3467128380) ALTv (test code = 28 U/L 5-35 1742-6) AST(SGOT) (test code = 34 U/L 13-40 2782068471) eGFR (test code = mL/min/1.73m2 8971108041) AREN (test code = AREN) Association of [...] tests). Lab Interpretation Abnormal (test code = 22299-3) [facility] 22:57:36 Test Item Value Reference Range Interpretation Comments LIPASE (test code = 0622335370) 97 U/L 0-220 Lab Interpretation (test code = Normal 21645-5) [facility] WITH [id number] 22:34:52 Test Item Value Reference Range Interpretation Comments WBC (test code = See_Comment L [Automated 2190-2) message] The sy stem which generated this [...] (test code = 76.8 fL 39.0-49.9 H 62948-8) RDW-CV (test code = 22.1 % 12.0-15.5 H 788-0) PLT (test code = See_Comment [Automated 777-3) message] The sy stem which generated this result transmitted reference range : 166 - 358 10*3/ ?L. The reference r stefanie was not used to interpret this result as normal/abnormal . MPV (test code = 12.4 fL 9.5-12.9 05955-3) NRBC/100 WBC (test See_Comment [Automat ed code = 7684742701) message] The system which generated this result transmitted reference range : 0.0 - 10.0 /100 WBCs. The refer ence range was not u sed to interpret th is result as normal/abnormal . NRBC x10^3 (test code See_Comment [Auto mated = 5179179639) message] The s ystem which generated this result transmitted reference range : 10*3/?L. The reference range was not used to interpret this result as normal/abnormal . GRAN MAT (NEUT) % 63.1 % (test code = 770-8) IMM GRAN % (test code 1.30 % = 2949024879) LYMPH % (test code = 26.3 % 736-9) MONO % (test code = 6.4 % 5905-5) EOS % (test code = 2.1 % 713-8) BASO % (test code = 0.8 % 706-2) GRAN MAT x10^3(ANC) 2.45 10*3/uL 1.88-7.09 (test code = 6295320523) IMM GRAN x10^3 (test 0.05 10*3/uL 0.00-0.06 code = [id number]) LYMPH x10^3 (test code 1.02 10*3/uL 1.32-3.29 L = 731-0) MONO x10^3 (test code 0.25 10*3/uL 0.33-0.92 L = 742-7) EOS x10^3 (test code = 0.08 10*3/uL 0.03-0.39 711-2) BASO x10^3 (test code 0.03 10*3/uL 0.01-0.07 = 704-7) Lab Interpretation Abnormal (test code = 15452-2) [facility] [id number] 22:15:00 Test Item Value Reference Range Interpretation Comments POCT PREG (test code = 1605) NEgative On board controls acceptable with C pass Line (test code = 3574) POCT PREG LOT # (test code = 3575) [id number] POCT PREG TEST DATE (test code = 3576) Lab Interpretation (test code = Normal 22020-6) [facility] URINALYSIS, [id number] 16:16:00 Test Item Value Reference Range Interpretation Comments POCT U SP GRAV (test code 1.020 mg/dl 1.005-1.025 = 3255) POCT PH U (test code = 5.5 mg/dl 5-8 4) POCT U LEUK EST (test negative Negative - Negative code = 3263) POCT U NIT (test code = positive Negative - Negative 2) POCT U PROT (test code = Negative - Negative 3258) POCT U GLU (test code = Negative - Negative 6) POCT U KETONE (test code trace Negative - Negative = 8) POCT U UROBILI (test code 1.0 mg/dl 0.2-1 = 3260) POCT U BILI (test code = small Negative - Negative 3260) POCT U BLD (test code = negative Negative - Negative 7) POCT U COLOR (test code = orange 3266) POCT U APPEAR (test code slightly cloudy = 3267) [facility] URINALYSIS, [id number] 16:16:00 Test Item Value Reference Range Interpretation [...] APPEAR (test code slightly cloudy = 3267) [facility] HEMOGLOBIN A1C [id number] 14:54:00 Test Item Value Reference Range Interpretation Comments POCT HBA1C (test code = 4548-4) 4.6 % 4-6 [facility] HEMOGLOBIN A1C [id number] 14:54:00 Test Item Value Reference Range Interpretation Comments POCT HBA1C (test code = 4548-4) 4.6 % 4-6 [facility] GLUCOSE (AUTOMATED)2022-03-02 13:11:54 Test Item Value Reference Range Interpretation Comments POCT GLU (test code = 3627024589) 137 mg/dL 70-110 H Lab Interpretation (test code = Abnormal 52209-4) [facility] GLUCOSE (AUTOMATED)2022-03-02 13:11:54 Test Item Value Reference Range Interpretation Comments POCT GLU (test code = 7197370060) 137 mg/dL 70-110 H Lab Interpretation (test code = Abnormal 36793-0) [facility] [id number] 12:59:00 Test Item Value Reference Range Interpretation Comments POCT Glu (age>30days) (test code = 137 mg/dL 70-110 A 3342) Lab Interpretation (test code = Abnormal 97576-0) [facility] [id number] 12:59:00 Test Item Value Reference Range Interpretation Comments POCT Glu (age>30days) (test code = 137 mg/dL 70-110 A 3342) Lab Interpretation (test code = Abnormal 84515-6) [facility] [id number] 12:48:00 Test Item Value Reference Range Interpretation Comments POCT PREG (test code = 1605) Negative On board controls acceptable with Yes C Line (test code = 3574) POCT PREG LOT # (test code = 3575) [id number] POCT PREG TEST DATE (test 2023-06-25 code = 3576) [facility] [id number] 12:48:00 Test Item Value Reference Range Interpretation Comments POCT PREG (test code = 1605) Negative On board controls acceptable with Yes C Line (test code = 3574) POCT PREG LOT # (test code = 3575) [id number] POCT PREG TEST DATE (test 2023-06-25 code = 3576) [facility]
[2022-12-15 20:20] LABS: Absolute Lymphocytes (CBC) 0.6 K/uL (0.7-4.9); Hematocrit 28.9 % (36.0-45.0); Lymphocytes % 31.1 % (15.3-44.8); MCV 98.4 fL (80-100); MPV 10.1 fL (7.6-11.3); RBC Red Blood Cell Count 2.93 M/uL (3.86-4.86)
[2022-12-15 20:21] LABS: Blood Morphology Comment NOT SEEN (NOT SEEN); Platelet Estimate DECR; White Blood Cell Scan OK (OK)
[2022-12-15 20:40] LABS: Albumin 3.8 g/dL (3.4-5.0); Bilirubin Total 0.7 mg/dL (0.2-1.0); Protein, Total 6.8 g/dL (6.4-8.2)
[2022-12-15 21:03] LABS: Specific Gravity 1.008 (1.005-1.030); Urine Bilirubin NEGATIVE (Negative); Urine Blood Negative (Negative); Urine Clarity Clear (Clear); Urine Color Light-Yellow (Yellow); Urine Glucose NEGATIVE (Negative); Urine Protein NEGATIVE (Negative); Urine Urobilinogen Normal (Normal)
[2022-12-15] MEDS ORDERED: NA CHLORIDE 0.9% 1,000 ML ONE (21:50)
[2022-12-15] MEDS ORDERED: FAMOTIDINE 20 MG/2 ML VIAL IV ONE (21:50)
[2022-12-15] MEDS ORDERED: DIPHENHYDRAMINE 50 MG/ML VIAL ONE (21:50)
[2022-12-15] MEDS ORDERED: METHYLPREDNISOLONE 125 MG INJ ONE (21:50)
--- NOTE | 2022-12-15 22:13 | RAD REPORT ---
EXAM DESCRIPTION: CT - Abdomen Pelvis W Contrast - 12/15/2022 9:30 pm CLINICAL HISTORY: back pain;Abd pain COMPARISON: Abdomen Pelvis W Contrast dated 10/09/2022; Abdomen Pelvis W Contrast dated 10/07/2022 ; Abdomen Pelvis W Contrast dated 09/08/2022; Abdomen Pelvis W Contrast dated 08/25/2022; Stone P rotocol dated 12/09/2022 TECHNIQUE: Thin cut axial CT imaging of the abdomen and pelvis was performed following intravenous a dministration of 95 mL Isovue 300. Multiplanar reformats were generated and reviewed. All CT scans are performed using dose optimization technique as appropriate and may include automated exposure control or mA/KV adjustment according to patient size. FINDINGS: Motion artifact limits evaluation. No suspicious findings in the lung bases. Elevation of the right hemidiaphragm. Right basilar subsegm ental atelectatic changes. Stable splenomegaly, without focal lesions. The liver, adrenal glands, and pancreas show no suspiciou s findings. Gallbladder is surgically removed. No evidence of intra or extrahepatic biliary ductal di lation Symmetric renal function is seen with no hydronephrosis or suspicious renal mass. No dilated bowel loops or bowel wall thickening. No free air, free fluid or inflammatory stranding. N o hernia, mass or bulky lymphadenopathy. The urinary bladder is suboptimally distended, limiting eval uation. No suspicious bony findings. Callus formation along anterior healing left rib fractures, stable. IMPRESSION: No acute intra-abdominal process. Stable findings as above.
[2022-12-15] MEDS ORDERED: FENTANYL CITR 100 MCG/2 ML ONE (22:22)
[2022-12-16] MEDS ORDERED: FENTANYL CITR 100 MCG/2 ML ONE (01:25)
--- NOTE | 2022-12-16 01:39 | P.HP ---
Certification for Inpatient Patient admitted to: Observation With expected LOS: <2 Midnights Patient will require the following post-hospital care: None Practitioner: I am a practitioner with admitting privileges, knowledge of patient current condition, hospital course, and medical plan of care. Services: Services provided to patient in accordance with Admission requirements found in Title 42 Section 412.3 of the Code of Federal Regulations Patient History Date of Service: 12/16/22 Primary Care Provider: Albina Reason for admission: Intractable Pain History of Present Illness: Patient is a 47 year old female with past medical history of hypertension, non- insulin dependent type 2 diabetes, asthma, hypothyroidism, and anemia who presented to the emergency department via EMS with complaints of pain all over and chills. When she returned from her abdomen/pelvis CT with IV contrast, her clinical status worsened- she was screaming in pain, became cold, and diaphoretic. It was thought to be a reaction to the contrast but patient has had IV contrast without issues in the past. She received benadryl and solumedrol without resolution of symptoms. She has remained tachycardic and continues to moan in pain. She cannot localize her pain during my assessment. No lab/imaging findings to explain her symptoms. Urine negative. No white count. Head CT negative. Abdomen/pelvis CT negative. ED provider wishes to admit patient for observation. Allergies amoxicillin [Amoxicillin] Allergy (Mild, Verified 08/14/17 10:28) Hives meperidine HCl [From Demerol] Allergy (Verified 08/14/17 10:28) Anaphylaxis ziprasidone HCl [From Geodon] Allergy (Verified 08/14/17 10:28) Anaphylaxis meclizine Adverse Reaction (Intermediate, Verified 08/14/17 10:28) Anaphylaxis diphenhydramine [From Benadryl] Adverse Reaction (Verified 08/14/17 10:28) Anaphylaxis lorazepam Adverse Reaction (Verified 08/14/17 10:28) Anaphylaxis ziprasidone mesylate [From Geodon] Adverse Reaction (Verified 08/14/17 10:28) Anaphylaxis Amoxicillin Allergy (Uncoded 08/14/17 10:28) Anaphylaxis Tessalon Allergy (Uncoded 06/12/22 23:11) Hives Tessalon Adilene Adverse Reaction (Uncoded 08/14/17 10:28) Anaphylaxis Home medications list reviewed: Yes Home Medications: Amitriptyline [Elavil*] 100 mg PO BEDTIME 08/14/17 Citalopram Hydrobromide [Citalopram HBr] 40 mg PO DAILY 08/14/17 Levothyroxine [Synthroid*] 50 mcg PO [id number] 08/14/17 Cyclobenzaprine HCl [Flexeril] 5 mg PO Q8HR PRN 12/05/20 Pregabalin [Lyrica] 150 mg PO TID 12/05/20 Rosuvastatin [Crestor*] 10 mg PO BEDTIME 12/05/20 Albuterol Sulfate [Proair Digihaler] 2 puff IH Q6H PRN 08/17/21 Buspirone HCl 20 mg PO BID 08/17/21 Fluticasone [Flovent Hfa 110*] 2 sprays IH BID 08/17/21 Docusate Sodium 100 mg PO DAILY 01/14/22 Losartan Potassium 50 mg PO BID 01/14/22 Metformin ER [Glucophage ER*] 500 mg PO DAILY 01/14/22 Mirabegron [Myrbetriq] 50 mg PO DAILY 01/14/22 Pantoprazole [Protonix Tab*] 40 mg PO DAILY 01/14/22 Semaglutide [Ozempic] 0.25 mg SQ ONCE 01/14/22 Sucralfate [Carafate*] 1 gm PO ACHS 01/14/22 Ascorbate Calcium [Vitamin C] 500 mg PO DAILY 06/13/22 Buspirone HCl [Buspar] 2 tab PO BID 06/13/22 Ca/D3/Mag Ox/Zinc/Endless Steamer Tender/Chi/Bor [Calcium 600+D3 Plus Caplet] 1 each PO DAILY 06/13/22 Cholecalciferol (Vitamin D3) [Vitamin D3] 50 mcg PO DAILY 06/13/22 Cyanocobalamin [B12 Injection] 1,000 mcg IM SEECOM 06/13/22 Diltiazem HCl [Cartia Xt] 120 mg PO BID 06/13/22 Doxycycline Hyclate 100 mg PO BID 7 Days #14 tab 06/13/22 Folic Acid 0.8 mg PO DAILY 06/13/22 Magnesium Oxide [Magnesium] 500 mg PO DAILY 06/13/22 Topiramate 25 mg PO BID 06/13/22 - Past Medical/Surgical History Diabetic: Yes -: type 2 diabetes -: pernicious anemia -: asthma -: major depression -: hypothyroidism -: anxiety -: neuropathy -: hypertension -: high cholesterol -: learning disability -: sleep apnea -: cholecystecomy -: tubal ligation -: splenectomy Psychosocial/ Personal History: Patient is on disability, lives at home with her family - Family History Mother -: Hypertension, Kidney disease Notes: celiac, oa, Father -: Hypertension, Diabetes, Other (see notes) Notes: high cholesterol - Social History Smoking Status: Never smoker Alcohol use: Yes CD- Drugs: No Caffeine use: No Place of Residence: Home Review of Systems General: Chills, Other (Headache) Gastrointestinal: Abdominal Pain Musculoskeletal: Back Pain Physical Examination - Vital Signs Temperature: 98.4 F Blood Pressure: 111/72 Pulse: 115 Respirations: 24 Pulse Ox (%): 97 - Physical Exam General: Alert, In no apparent distress, Obese HEENT: Atraumatic, EOMI, Sclerae nonicteric Neck: Supple, 2+ carotid pulse no bruit Respiratory: Clear to auscultation bilaterally, Normal air movement Cardiovascular: Normal pulses, Other (tachycardic) Gastrointestinal: Normal bowel sounds, No tenderness Musculoskeletal: No tenderness Integumentary: No rashes Neurological: Sensation intact, Abnormal affect - Studies Laboratory Data (last 24 hrs) 12/15/22 20:11: Sodium 141, Potassium 4.0, BUN 7, Creatinine 1.12 H, Glucose 153 H, Total Bilirubin 0.7, AST 36, ALT 43, Alkaline Phosphatase 148 H, Lipase 36 12/15/22 20:11: WBC 1.80 L, Hgb 9.6 L, Hct 28.9 L, Plt Count 110 L Assessment and Plan - Problems (Diagnosis) (1) Intractable pain Current Visit: Yes Status: Acute (2) Anemia Current Visit: Yes Status: Chronic Qualifiers: Anemia type: unspecified type Qualified Code(s): D64.9 - Anemia, unspecified (3) Bipolar disorder Current Visit: Yes Status: Chronic Qualifiers: Active/Remission status: remission status unspecified Qualified Code(s): F31.9 - Bipolar disorder, unspecified (4) Hypothyroidism Current Visit: Yes Status: Chronic Qualifiers: Hypothyroidism type: acquired Qualified Code(s): E03.9 - Hypothyroidism, unspecified (5) Obesity Current Visit: Yes Status: Chronic Qualifiers: Obesity type: due to excess calories Obesity classification: adult class 3 (BMI >= 40) Serious obesity comorbidity presence: without serious comorbidity Body mass index: BMI 40.0-44.9 Qualified Code(s): E66.01 - Morbid (severe) obesity due to excess calories; Z68.41 - Body mass index [BMI] 40.0-44.9, adult; Z68.41 - Body mass index [BMI] 40.0-44.9, adult (6) Type 2 diabetes mellitus Current Visit: Yes Status: Chronic Qualifiers: Diabetes mellitus retirement insulin use: without terminal gauger use Diabetes mellitus complication status: with hyperglycemia Qualified Code(s): E11.65 - Type 2 diabetes mellitus with hyperglycemia - Plan Patient is admitted for further management of intractable pain. No definite finding to explain patient's symptoms, she does have history of septic UTIs, but her urine is clean today. She has remained tachycardic and continues to moan in pain. She cannot localize her pain during my assessment. Will check covid and flu given her chills and tachycardia. She denies any upper respiratory symptoms. Urine negative. No white count. Head CT negative. Abdomen/pelvis CT negative. ACHS accu checks with mild sliding scale and diabetic diet. BP has been borderline low. Hold home antihypertensives. Monitor and replete electrolytes per protocol. Reconcile and continue home medications. Discharge Plan: Home Plan to discharge in: 24 Hours - Advance Directives Does patient have a Living Will: No Does patient have a Durable POA for Healthcare: Yes - Code Status/Comfort Care Code Status Assessed: Yes Code Status: Full Code Physician Review: Patient Assessed, Agree with Above Assessment and Plan Critical Care: No Time Spent Managing Pts Care (In Minutes): 50
[2022-12-16 02:42] VITALS: BMI 37.3
[2022-12-16] MEDS ORDERED: METOCLOPRAMIDE 10 MG/2mL INJ IV SCH (02:50)
[2022-12-16] MEDS ORDERED: ALBUTEROL 2.5 MG/3 ML NEB SOL NEB PRN (02:50)
[2022-12-16] MEDS ORDERED: KETOROLAC 30 MG/ML INJ IV ONE (02:50)
[2022-12-16] MEDS ORDERED: ONDANSETRON 4 MG/2 ML VIAL IV PRN (02:50)
[2022-12-16] MEDS ORDERED: MAGNESIUM SULFATE 1 gm IVPB 1 GM/100 ML BAG IV ONE (02:50)
[2022-12-16] MEDS ORDERED: NA CHLORIDE 0.9% 1,000 ML IV ONE ×2 (02:50→09:08)
[2022-12-16] MEDS ORDERED: ACETAMINOPHEN 500 MG TAB PO PRN (02:50)
[2022-12-16 04:35] LABS: SARS-COV-2 RT PCR NEGATIVE (NEGATIVE)
[2022-12-16 05:42] LABS: Specific Gravity ND (1.005-1.030); Urine Ascorbic Acid ND (Negative); Urine Bilirubin ND (Negative); Urine Blood ND (Negative); Urine Clarity Extremely Turbid (Clear); Urine Color Brown (Yellow); Urine Glucose ND (Negative); Urine Protein ND (Negative); Urine Urobilinogen ND mg/dL (0.2-1.0); Urine pH ND (5.0-7.0)
[2022-12-16] MEDS ORDERED: FENTANYL CITR 100 MCG/2 ML IV ONE ×2 (05:44→15:45)
[2022-12-16 06:00] LABS: Urine Bacteria <20 /HPF (<20)
[2022-12-16 06:01] LABS: Renal Epithelial <5 /HPF (None Seen)
[2022-12-16] MEDS: INSULIN -REGULAR HUMAN 50 UNIT/0.5 ML ML SQ SCH ×3 (07:30→16:20)
--- NOTE | 2022-12-16 08:34 | EDPHYS ---
Physician Documentation [facility] Name: Linda Rahman Age: 47 yrs Sex: Female : 1975 Arrival Date: 12/15/2022 Time: 19:00 Bed 18 Private MD: Jose Montemayor ED Physician Tommy Orellana HPI: 12/15 21:18 This 47 yrs old Female presents to ER via Wheelchair with complaints of Back rn Pain. 21:18 The patient presents with pain that is acute, with no known mechanism of injury. The rn symptoms are located in the right mid back. Onset: The symptoms/episode began/occurred today. The pain radiates to the right leg. Associated signs and symptoms: Pertinent positives: abdominal pain, Pertinent negatives: chest pain, fever, hematuria, incontinence, nausea, numbness, tingling, urinary retention, vomiting, weakness. Modifying factors: The patient symptoms are alleviated by nothing, the patient symptoms are aggravated by any movement. Severity of symptoms: At their worst the symptoms were mild, in the emergency department the symptoms are unchanged. The patient has experienced similar episodes in the past, chronically. The patient has not recently seen a physician. Pt reports right mid/low back pain, no injury, started 30 min prior to arrival. Reports she doesn't know if its her pinched nerve or kidney pain. Reports recurrent UTIs. No vomiting/diarrhea. No dysuria. No hematuria. . PRIMER BOXER: 19:42 LMP N/A - Post-menopause lg3 Historical: - Allergies: 19:42 Amoxicillin; lg3 19:42 Codeine; lg3 19:42 Demerol; lg3 19:42 Geodon; lg3 19:42 Meclizine; lg3 19:42 Tessalon Perles; lg3 - Home Meds: 19:42 Buspirone Oral [Active]; citalopram oral [Active]; levothyroxine 50 mcg cap [Active]; lg3 - PMHx: 19:42 Anemia; Anxiety; Asthma; Chronic Abdominal Pain; Depression; diabetes mellitus; lg3 Hypertensive disorder; Hypothyroidism; Migraine; Angina pectoris; Angina pectoris; - PSHx: 19:42 Cholecystectomy; tubal ligation; lg3 - Immunization history:: Adult Immunizations up to date, Client reports receiving the 2nd dose of the Covid vaccine, Flu vaccine is up to date. - Social history:: Smoking status: Patient denies any tobacco usage or history of. Patient/guardian denies using alcohol, street drugs. - Family history:: not pertinent. - Hospitalizations: : No recent hospitalization is reported. ROS: 21:18 Constitutional: Negative for fever, chills, and weight loss, Cardiovascular: Negative rn for chest pain, palpitations, and edema, Respiratory: Negative for shortness of breath, cough, wheezing, and pleuritic chest pain, Abdomen/GI: Negative for nausea, vomiting, diarrhea, and constipation, Back: + right sided back pain : Negative for injury, bleeding, discharge, and swelling, MS/Extremity: Negative for injury and deformity, Skin: Negative for injury, rash, and discoloration, Neuro: Negative for headache, weakness, numbness, tingling, and seizure. Exam: 21:18 Constitutional: This is a well developed, well nourished patient who is awake, alert, rn and in no acute distress. Head/Face: Normocephalic, atraumatic. Cardiovascular: Tachycardic, regular. No pulse deficits. Respiratory: No increased work of breathing, no retractions or nasal flaring. Abdomen/GI: Soft, non-tender Back: No spinal tenderness. No CVAT Skin: Warm, dry MS/ Extremity: Pulses equal, no cyanosis Neuro: Awake and alert, GCS 15 Vital Signs: 19:40 BP 105 / 72; Pulse 104; Resp 16 S; Temp 98.4(O); Pulse Ox 100% on R/A; Weight 97.52 kg lg3 (R); Height 5 ft. 2 in. (R); Pain 9/10; 21:54 BP 95 / 80; Pulse 123; Resp 28; Pulse Ox 100% on R/A; mb9 22:35 BP 96 / 65; Pulse 110; Resp 21; Pulse Ox 97% on R/A; mb9 23:25 BP 111 / 72; Pulse 115; Resp 24; Pulse Ox 97% on R/A; mb9 12/16 00:30 BP 102 / 52; Pulse 114; Resp 24; Pulse Ox 98% on R/A; vc1 01:20 BP 102 / 70; Pulse 121; Resp 22; Pulse Ox 98% ; vc1 12/15 19:40 Body Mass Index 39.32 (97.52 kg, 157.48 cm) lg3 12/15 19:40 Pain Scale: Adult lg3 MDM: 12/15 19:04 Patient medically screened. rn 21:47 ED course: Pt returned from CT scan with headache, diaphoresis, has multiple allergies rn so possibly reaction to contrast. Will treat as possible allergic reaction and reeval. . 12/16 00:18 Differential diagnosis: arthritis, chronic back pain, Fatigue Osteoarthritis rn Pyelonephritis sprain, Ureterolithiasis pyelonephritis, HTN, chronic pain. Data reviewed: vital signs, nurses notes, lab test result(s), radiologic studies, CT scan, and as a result, I will admit patient. Consideration of Admission/Observation Patient was admitted/placed on observation. Escalation of care including admission/observation considered. Management of patient was discussed with the following: Hospitalist: . Counseling: I had a detailed discussion with the patient and/or guardian regarding: the historical points, exam findings, and any diagnostic results supporting the discharge/admit diagnosis, lab results, radiology results, the need for further work-up and treatment in the hospital. ED course: Pt still doesn't appear back to baseline, still uncomfortable with intractable pain and possible reaction, will obs in hospital to hospitalist group. No acute findings in ct abdomen or head. . 12/15 19:42 Order name: CBC with Diff; Complete Time: 20:57 rn 12/15 19:42 Order name: CMP; Complete Time: 20:57 rn 12/15 19:42 Order name: Lipase; Complete Time: 20:57 rn 12/15 19:42 Order name: Urinalysis w/ reflexes; Complete Time: 21:17 rn 12/15 20:21 Order name: CBC Smear Scan; Complete Time: 20:57 EDMS 12/16 01:31 Order name: COVID-19/FLU A+B sb4 12/15 20:58 Order name: CT Abd/Pelvis - IV Contrast Only rn 12/15 21:47 Order name: CT Head Brain wo Cont rn 12/15 19:42 Order name: IV Saline Lock; Complete Time: 20:49 rn 12/15 19:42 Order name: Labs collected and sent; Complete Time: 20:49 rn 12/15 21:44 Order name: Glucose Level; Complete Time: 21:51 rn Administered Medications: 12/15 21:45 Drug: Famotidine IVP 20 mg Route: IVP; Site: left antecubital; mb9 22:31 Follow up: Response: No adverse reaction mb9 21:45 Drug: NS 0.9% IV 1000 ml Route: IV; Rate: 1000 ml; Site: left antecubital; mb9 22:45 Follow up: Response: No adverse reaction; IV Status: Completed infusion mb9 21:46 Drug: diphenhydrAMINE IVP 50 mg Route: IVP; Site: left antecubital; mb9 22:31 Follow up: Response: No adverse reaction mb9 21:49 Drug: MethylPrednisoLONE IVP 125 mg Route: IVP; Site: left antecubital; mb9 22:31 Follow up: Response: No adverse reaction mb9 22:25 Drug: fentaNYL (PF) IVP 50 mcg Route: IVP; Site: left antecubital; mb9 23:38 Follow up: Response: No adverse reaction mb9 12/16 01:29 Drug: fentaNYL (PF) IVP 50 mcg Route: IVP; Site: left antecubital; vc1 Disposition Summary: 12/16/22 00:20 Hospitalization Ordered Hospitalization Status: Observation rn Provider: Paris Li rn Location: Telemetry/MedSurg (observation) rn Condition: Stable rn Problem: new rn Symptoms: have improved rn Bed/Room Type: Standard rn Room Assignment: 210(12/16/22 01:36) kl Diagnosis - Low back pain rn - Headache rn Forms: - Medication Reconciliation Form rn - SBAR form rn Signatures: Dispatcher [employer] EDLucila Ochoa RN RN kl Nieto, Roman, MD MD rn Gibson, Lacie, RN RN lg3 Amber Leiva RN RN vc1 Nely Hurst RN RN mb9 Corrections: (The following items were deleted from the chart) 12/15 21:21 21:18 Constitutional: This is a well developed, well nourished patient who is awake, rn alert, and in no acute distress. Head/Face: Normocephalic, atraumatic. Cardiovascular: Tachycardic, regular. No pulse deficits. Respiratory: No increased work of breathing, no retractions or nasal flaring. Abdomen/GI: Soft, non-tender Back: No spinal tenderness. No CVAT Skin: Warm, dry MS/ Extremity: Pulses equal, no cyanosis Neuro: Awake and alert, GCS 15 rn 12/16 01:36 00:20 rn kl
--- NOTE | 2022-12-16 08:34 | ER ---
Nurse's Notes [facility] Name: Linda Rahman Age: 47 yrs Sex: Female : 1975 Arrival Date: 12/15/2022 Time: 19:00 Bed 18 Private MD: Jose Montemayor Diagnosis: Low back pain;Headache Presentation: 12/15 19:40 Chief complaint: Patient states: right sided back pain and chills starting today. 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 Coronavirus screen: Client denies travel out of the [place] in the last 14 days. At this time, the client does not indicate any symptoms associated with coronavirus-19. Ebola Screen: No symptoms or risks identified at this time. Initial Sepsis Screen: Does the patient meet any 2 criteria? No. Patient's initial sepsis screen is negative. Does the patient have a suspected source of infection? No. Patient's initial sepsis screen is negative. Risk Assessment: Do you want to hurt yourself or someone else? Patient reports no desire to harm self or others. Onset of symptoms was December 15, 2022. 19:40 Method Of Arrival: Wheelchair lg3 19:40 Acuity: HOLLEY 3 lg3 Triage Assessment: 19:42 General: Appears in no apparent distress. comfortable, Behavior is calm, cooperative. lg3 Pain: Complains of pain in back. EENT: No deficits noted. No signs and/or symptoms were reported regarding the EENT system. Neuro: No deficits noted. Pelletier Agitation-Sedation Scale (RASS): 0 - Alert and Calm Level of Consciousness is awake, alert, obeys commands, Oriented to person, place, time, situation. Cardiovascular: No deficits noted. Denies chest pain, shortness of breath, Capillary refill < 3 seconds Clubbing of nail beds is absent JVD is absent Patient's skin is warm and dry. Respiratory: No deficits noted. Airway is patent Trachea midline Respiratory effort is even, unlabored, Respiratory pattern is regular, symmetrical. GI: No deficits noted. No signs and/or symptoms were reported involving the gastrointestinal system. Abdomen is round non-distended, obese. : No deficits noted. Derm: No deficits noted. Skin is intact, is healthy with good turgor, Skin is dry, Skin is normal, Skin temperature is warm. Musculoskeletal: No deficits noted. Circulation, motion, and sensation intact. Range of motion: intact in all extremities. VISUAL DESIGN LEAD: 19:42 LMP N/A - Post-menopause lg3 Historical: - Allergies: 19:42 Amoxicillin; lg3 19:42 Codeine; lg3 19:42 Demerol; lg3 19:42 Geodon; lg3 19:42 Meclizine; lg3 19:42 Tessalon Perles; lg3 - Home Meds: 19:42 Buspirone Oral [Active]; citalopram oral [Active]; levothyroxine 50 mcg cap [Active]; lg3 - PMHx: 19:42 Anemia; Anxiety; Asthma; Chronic Abdominal Pain; Depression; diabetes mellitus; lg3 Hypertensive disorder; Hypothyroidism; Migraine; Angina pectoris; Angina pectoris; - PSHx: 19:42 Cholecystectomy; tubal ligation; lg3 - Immunization history:: Adult Immunizations up to date, Client reports receiving the 2nd dose of the Covid vaccine, Flu vaccine is up to date. - Social history:: Smoking status: Patient denies any tobacco usage or history of. Patient/guardian denies using alcohol, street drugs. - Family history:: not pertinent. - Hospitalizations: : No recent hospitalization is reported. Screenin/23 00:00 [facility] ED Fall Risk Assessment (Adult) History of falling in the last 3 months, vc1 including since admission No falls in past 3 months (0 pts) Confusion or Disorientation No (0 pts) Intoxicated or Sedated No (0 pts) Impaired Gait Yes (1 pt) Mobility Assist Device Used No (0 pt) Altered Elimination No (0 pt) Score/Fall Risk Level 0 - 2 = Low Risk Oriented to surroundings, Maintained a safe environment, Educated pt \T\ family on fall prevention, incl call for assistance when getting out of bed. Abuse screen: Denies threats or abuse. Nutritional screening: No deficits noted. Tuberculosis screening: No symptoms or risk factors identified. Assessment: 12/15 20:03 Reassessment: pt brought back to ER room. mb9 20:13 General: Appears in no apparent distress. Behavior is calm, cooperative, appropriate mb9 for age. Pain: Complains of pain in back Pain does not radiate. Pain currently is 9 out of 10 on a pain scale. Quality of pain is described as sharp, shooting, Pain began suddenly, Aggravated by increased activity. Neuro: Level of Consciousness is awake, alert, obeys commands, Oriented to person, place, time, situation, Appropriate for age. Cardiovascular: Patient's skin is warm and dry. Respiratory: Airway is patent Respiratory effort is even, unlabored, Respiratory pattern is regular, symmetrical. Derm: Skin is pink, warm \T\ dry. Musculoskeletal: Range of motion: intact in all extremities. 21:45 Reassessment: pt came back from CT with severe headache, diaphoretic, and pale. mika HOLLINS at bedside. New orders at this time. 22:25 Reassessment: pt complaining of pain in head and RLQ. Esteban GARCIA, notified. New orders mika at this time. 23:24 Reassessment: pt taken to CT via stretcher. mika 12/16 00:40 Reassessment: pt rolling around on back moaning in pain. Notified provider. Provided pt vc1 with call light, encouraged to use. 01:50 Reassessment: Pt stated she needed to go to the bathroom, ambulated to doorway then vc1 requested wheel chair for the remainder of the walk. Pt states she is in too much pain. Vital Signs: 12/15 19:40 BP 105 / 72; Pulse 104; Resp 16 S; Temp 98.4(O); Pulse Ox 100% on R/A; Weight 97.52 kg lg3 (R); Height 5 ft. 2 in. (R); Pain 9/10; 21:54 BP 95 / 80; Pulse 123; Resp 28; Pulse Ox 100% on R/A; mb9 22:35 BP 96 / 65; Pulse 110; Resp 21; Pulse Ox 97% on R/A; mb9 23:25 BP 111 / 72; Pulse 115; Resp 24; Pulse Ox 97% on R/A; mb9 12/16 00:30 BP 102 / 52; Pulse 114; Resp 24; Pulse Ox 98% on R/A; vc1 01:20 BP 102 / 70; Pulse 121; Resp 22; Pulse Ox 98% ; vc1 12/15 19:40 Body Mass Index 39.32 (97.52 kg, 157.48 cm) 3 12/15 19:40 Pain Scale: Adult 3 ED Course: 12/15 19:00 Patient arrived in ED. mr 19:00 Jose Montemayor DO is Private Physician. mr 19:04 Tommy Orellana MD is Attending Physician. rn 19:42 Triage completed. lg3 19:42 Arm band placed on right wrist. lg3 20:03 Nely Hurst, ABDULLAHI is Primary Nurse. mb9 20:15 No provider procedures requiring assistance completed. Inserted saline lock: 20 gauge mb9 in left antecubital area, using aseptic technique. 20:49 Urinalysis w/ reflexes Sent. oe 12/16 00:00 Patient has correct armband on for positive identification. Bed in low position. Call vc1 light in reach. Client placed on continuous cardiac and pulse oximetry monitoring. NIBP monitoring applied. 00:20 Paris Li MD is Hospitalizing Provider. rn 08:25 CT Abd/Pelvis - IV Contrast Only In Process Unspecified. EDMS Administered Medications: 12/15 21:45 Drug: Famotidine IVP 20 mg Route: IVP; Site: left antecubital; mb9 22:31 Follow up: Response: No adverse reaction mb9 21:45 Drug: NS 0.9% IV 1000 ml Route: IV; Rate: 1000 ml; Site: left antecubital; mb9 22:45 Follow up: Response: No adverse reaction; IV Status: Completed infusion mb9 21:46 Drug: diphenhydrAMINE IVP 50 mg Route: IVP; Site: left antecubital; mb9 22:31 Follow up: Response: No adverse reaction mb9 21:49 Drug: MethylPrednisoLONE IVP 125 mg Route: IVP; Site: left antecubital; mb9 22:31 Follow up: Response: No adverse reaction mb9 22:25 Drug: fentaNYL (PF) IVP 50 mcg Route: IVP; Site: left antecubital; mb9 23:38 Follow up: Response: No adverse reaction mb9 12/16 01:29 Drug: fentaNYL (PF) IVP 50 mcg Route: IVP; Site: left antecubital; vc1 Medication: 12/15 22:36 VIS not applicable for this client. mb9 Outcome: 12/16 00:20 Decision to Hospitalize by Provider. rn 02:34 Patient left the ED. vc1 Signatures: Dispatcher [employer] [facility] AraujoNely roman Roman, MD MD rn Carlos Alberto Oro Lacie RN RN lg3 Amber Leiva RN RN vc1 Nely Hurst RN RN mb9 Corrections: (The following items were deleted from the chart) 12/15 23:24 22:36 Reassessment: mika mb9
[2022-12-16] MEDS ORDERED: CEFTRIAXONE 1,000 MG in NA CHLORIDE 0.9% 50 ML IVPB SCH (09:00)
[2022-12-16] MEDS ORDERED: HYDROMORPHONE HCL 0.5 MG/0.5 ML INJ ONE ×2 (09:18→14:58)
[2022-12-16] MEDS ORDERED: HYDROMORPHONE HCL 0.5 MG/0.5 ML INJ IV PRN (09:49)
[2022-12-16] MEDS ORDERED: NA CHLORIDE 0.9% 1,000 ML IV SCH (10:00)
--- NOTE | 2022-12-16 10:29 | RAD REPORT ---
EXAM DESCRIPTION: RADChest Single View12/16/2022 10:01 am CLINICAL HISTORY: Dyspnea COMPARISON: Chest Single View dated 10/22/2022; Abdomen Acute Series dated 10/15/2022; Chest Single Vi ew dated 09/17/2022; Chest Single View dated 08/25/2022 TECHNIQUE: Portable AP view of the chest. FINDINGS: Decreased inspiratory effort limits evaluation. The lungs show no focal consolidation. Int erstitial prominence and enlargement of the central vascular markings, progressive since the prior ex am. No pneumothorax or effusion. The cardiomediastinal contours are unchanged with upper limit of nor mal heart size. IMPRESSION: Increasingly prominent interstitium and vascular markings, could reflect mild central co ngestion. No other acute pulmonary process.
[2022-12-16 12:44] LABS: Protime INR 1.93
[2022-12-16 12:54] LABS: Albumin 3.5 g/dL (3.4-5.0); Bilirubin Direct 5.6 mg/dL (0-0.2); Bilirubin Total 10.4 mg/dL (0.2-1.0); Protein, Total 6.3 g/dL (6.4-8.2)
[2022-12-16 12:56] LABS: Potassium 5.4 mEq/L (3.5-5.1)
[2022-12-16 12:57] LABS: Magnesium 3.1 mg/dL (1.6-2.4)
[2022-12-16] MEDS ORDERED: METHYLPREDNISOLONE 125 MG INJ IV ONE (13:09)
[2022-12-16 13:11] LABS: Absolute Lymphocytes (CBC) 9.7 K/uL (0.7-4.9); Hematocrit 11.6 % (36.0-45.0); Lymphocytes % 21.9 % (15.3-44.8); MCV 133.1 fL (80-100); MPV 9.1 fL (7.6-11.3); RBC Red Blood Cell Count 0.87 M/uL (3.86-4.86)
--- NOTE | 2022-12-16 13:49 | RAD REPORT ---
EXAM DESCRIPTION: CT - Head Brain Wo Cont - 12/16/2022 5:47 am CLINICAL HISTORY: The patient is 47 years old and is Female; ACUTE HEADACHE TECHNIQUE: Axial computed tomography images of the head/brain without intravenous contrast. Sagitt al and coronal reformatted images were created and reviewed. This CT exam was performed using one o r more of the following dose reduction techniques: automated exposure control, adjustment of the mA and/or kV according to patient size, and/or use of iterative reconstruction technique. COMPARISON: August 17, 2021. FINDINGS: Brain: Unremarkable. No hemorrhage. No significant white matter disease. No edema. Ventricles: Unremarkable. No ventriculomegaly. Bones/joints: Unremarkable. No acute fracture. Soft tissues: Unremarkable. Sinuses: Unremarkable as visualized. Mastoid air cells: Unremarkable as visualized. No mastoid effusion. IMPRESSION: No acute intracranial abnormality. Electronically signed by: Chemo Soares MD 12/15/2022 11:57 PM CDT Due to temporary technical issues with the PACS/Fluency reporting system, reports are being signed by the in house radiologists without review as a courtesy to insure prompt reporting. The interpreting radiologist is fully responsible for the content of the report.
[2022-12-16] MEDS ORDERED: SODIUM CHLORIDE 0.9% 10ML INJ IV PRN (13:51)
[2022-12-16] MEDS ORDERED: PANTOPRAZOLE INJ 80 MG in NA CHLORIDE 0.9% 250 ML IV SCH (14:00)
[2022-12-16] MEDS ORDERED: D5W 1,000 ML with NA BICARB 8.4% 150 MEQ IV SCH ×4 (14:00→20:00)
[2022-12-16 14:17] LABS: Blood Morphology Comment NOT SEEN (NOT SEEN); Platelet Estimate ADEQ
[2022-12-16] MEDS ORDERED: MAGNESIUM HYDROXIDE 8% 30 ML PO ONE (14:45)
[2022-12-16] MEDS ORDERED: NA CHLORIDE 0.9% 100 ML ONE (15:24)
[2022-12-16] MEDS ORDERED: FUROSEMIDE 20 MG/ 2ML VIAL IV ONE ×2 (16:00→18:40)
[2022-12-16] MEDS: SODIUM BICARB 50 MEQ/50ML VIAL ONE ×4 (17:37→19:24)
[2022-12-16] MEDS ORDERED: NOREPINEPHRINE BITARTRATE/D5W 4 MG/250 ML BAG IV ONE (17:47)
[2022-12-16] MEDS ORDERED: NOREPINEPHRINE BITARTRATE/D5W 4 MG/250 ML BAG IV SCH (18:00)
--- NOTE | 2022-12-16 18:24 | P.PN ---
Date of Service: 12/16/22 ABGs: 7.036/31.2/225/8/99% on 100 NRB
[2022-12-16] MEDS ORDERED: VANCOMYCIN 1.75 GM in NA CHLORIDE 0.9% 500 ML IVPB ONE (18:30)
[2022-12-16 18:32] LABS: Arterial Blood Carboxyhemoglob 3.1 % (0-1.5); Blood Gas Oxyhemoglobin 92.7 % (94-97); Blood O2 Saturation 99.5 % (92-98.5)
[2022-12-16] MEDS ORDERED: SODIUM BICARB 50 MEQ/50ML VIAL ONE ×2 (19:45→20:43)
[2022-12-16] MEDS ORDERED: DIGOXIN 0.25 MG/ML AMP IV ONE (20:01)
[2022-12-16 21:00] VITALS: BP 121/95; TEMP 96.9
[2022-12-16] MEDS ORDERED: PANTOPRAZOLE 40 MG INJ IVP SCH (21:00)
[2022-12-16] MEDS ORDERED: Mupirocin NASAL 2 APPL/1 GM TUBE NAS SCH (21:00)
[2022-12-16 21:33] VITALS: O2SAT 99
[2022-12-18] MEDS ORDERED: VANCOMYCIN 1.5 GM in NA CHLORIDE 0.9% 500 ML IVPB SCH ×2 (06:00→08:00)
--- NOTE | 2022-12-20 12:37 | EKG ---
Test Date: 2022-12-16 Test Time: 19:59:22 Lithoplate Maker: RT-O MEASUREMENT RESULTS: Intervals: Rate: 134 [place]: QRSD: 102 QT: 312 QTc: 465 Prole: P: [place]: QRS: -32 T: 121 INTERPRETIVE STATEMENTS: Supraventricular tachycardia Left axis deviation Incomplete right bundle branch block T wave abnormality, consider lateral ischemia Abnormal ECG Compared to ECG 11/04/2022 17:07:46 Left-axis deviation now present T-wave abnormality now present Possible ischemia now present Sinus tachycardia no longer present Left anterior fascicular block no longer present Myocardial infarct finding no longer present Electronically Signed On 12-20-22 12:29:21 CDT by Donnell Blanc
== END 2022-12-16 21:20 | disposition short-term general hospital (02) | DRG 392 ==
LOC: ER 18:51 → ERHOLD 12-16 01:31 → 2ND 12-16 02:46 → OBSVTOIN 12-16 13:04 → 3RD-ICU 12-16 13:25
PROVIDERS: ADMIT Hospitalist; ATTEND Hospitalist
PROC: 30233P1 Transfusion of Nonautologous Frozen Red Cells into Peripheral Vein, Percutaneous Approach (ICD-10-PCS; principal; 2022-12-16)
DX: R10.9 Unspecified abdominal pain (principal); Z68.41 Body mass index [BMI] 40.0-44.9, adult; E66.01 Morbid (severe) obesity due to excess calories; I10 Essential (primary) hypertension; E11.65 Type 2 diabetes mellitus with hyperglycemia; F31.9 Bipolar disorder, unspecified; D64.9 Anemia, unspecified; E03.9 Hypothyroidism, unspecified; J45.909 Unspecified asthma, uncomplicated; R00.0 Tachycardia, unspecified; Z88.5 Allergy status to narcotic agent; Z88.1 Allergy status to other antibiotic agents; Z88.8 Allergy status to other drugs, medicaments and biological substances; Z90.49 Acquired absence of other specified parts of digestive tract; Z98.51 Tubal ligation status; Z79.890 Hormone replacement therapy; Z79.899 Other long term (current) drug therapy; Z20.822 Contact with and (suspected) exposure to COVID-19
CPT/HCPCS: 0240U; 36415; 70450; 71045; 74177; 80053; 81001; 81003; 82248; 82805; 82947; 83010; 83605; 83615; 83690; 83735; 83880; 84145; 85025; 85044; 85610; 85730; 86850; 86870; 86900; 86901; 86922; 93005; 94760; 96361; 96374; 96375; 99284; C9113; G0378; J1160; J1170; J1200; J1940; J2405; J2765; J2930; J3010; J3475; J7030; J7040; J7050; P9016; Q9967

== ENCOUNTER 2023-07-12 14:05 | Emergency (ER) | payer OTHER ==
[2023-07-12 14:38] LABS: Absolute Lymphocytes (CBC) 0.5 K/uL (0.7-4.9); Hematocrit 23.6 % (36.0-45.0); Lymphocytes % 16.5 % (15.3-44.8); MCV 93.9 fL (80-100); MPV 7.6 fL (7.6-11.3); Platelets 249 thou/uL (152-406); RBC Red Blood Cell Count 2.52 M/uL (3.86-4.86)
[2023-07-12] MEDS ORDERED: NA CHLORIDE 0.9% 1,000 ML ONE (14:42)
[2023-07-12 15:00] LABS: Albumin 1.6 g/dL (3.4-5.0); Bilirubin Total 0.4 mg/dL (0.2-1.0); Potassium 4.4 mEq/L (3.5-5.1); Protein, Total 4.2 g/dL (6.4-8.2)
[2023-07-12 15:02] LABS: Blood Morphology Comment NOT SEEN (NOT SEEN); Platelet Estimate ADEQ; White Blood Cell Scan OK (OK)
--- OUTSIDE RECORDS SUMMARY | 2023-07-12 15:31 | XMS REPORT | Continuity of Care Document ---
:1975 Author Organization [facility] t Address [address] [place] [address] Care Team Providers Name Role Phone TRAY JOLLY Primary Care Physician Unavailable LAKISHA MAN Attending Clinician Unavailable CECILE ASHER Attending Clinician Unavailable INNA LITTLE Attending Clinician Unavailable Cuca Yi Attending Clinician Unavailable Peterson Almanza Attending Clinician Unavailable Lelia Hassan Attending Clinician Unavailable Dom Burton Attending Clinician Unavailable TRAY JOLLY Attending Clinician Unavailable Yesika Luo Attending Clinician Unavailable Doctor Unassigned, [place] Attending Clinician Unavailable Sotero JOHNS, Aubrie Attending Clinician AUBRIE LIN Attending Clinician Unavailable Tarun Oliver Attending Clinician Unavailable JENNIFER CARBONE Attending Clinician Unavailable Dafne Navarro MD Attending Clinician Jennifer Carbone MD Attending Clinician DEON GARCIA Attending Clinician Unavailable NAV ANTONIO Attending Clinician Unavailable LISANDRO DAILEY Attending Clinician Unavailable DR DANNI SPANGLER Attending Clinician Unavailable LAZARO WHEELER Attending Clinician Unavailable ROCK PORTILLO Attending Clinician Unavailable Debra Brownlee Attending Clinician Unavailable Edvin HOLLINS, Yelena Attending Clinician Sea Gibson MD Attending Clinician Bernarda Adorno MD Attending Clinician MARIBEL TINSLEY Attending Clinician Unavailable Tray Jolly MD Attending Clinician Chao Sahu MD Attending Clinician Constantino Morales CRNA Attending Clinician [phone] Ricki Martinez MD Attending Clinician Lizbet Rodriguez MD Attending Clinician Jyothi Hanks Attending Clinician Unavailable AUBRIE SCHAEFFER Attending Clinician Unavailable Roseline Parisi MA Attending Clinician Unavailable Bon Hall MD Attending Clinician Andrea Paula MD Attending Clinician Neris Estrada Attending Clinician Unavailable Nav Antonio MD Attending Clinician Maribel Joy Attending Clinician Cecile Asher MD Attending Clinician Saira FUCHS MD, John G Attending Clinician Scot [facility], Vik Fleming Attending Clinician SHENA PEREA Attending Clinician Unavailable Shena Perea DO Attending Clinician Van HOLLINS, Elisha Attending Clinician ELISHA ARAUJO Attending Clinician Unavailable PANTERA NAVARRO Attending Clinician Unavailable Ashlie HOLLINS, Lisandro Attending Clinician [phone] Jose Antonio HOLLINS, Livia Campos Attending Clinician Melanie HOLLINS, Pantera Rider Attending Clinician GREG JACKSON Attending Clinician Unavailable Mi FERNANDO, Kvng Gutiérrez Attending Clinician Unavailable Louis JOHNS, Kemal Packer Attending Clinician Lazaro HOLLINS, Geovanny Attending Clinician Deshaun Saavedra MD Attending Clinician Vern Bernardo DO Attending Clinician [phone], [facility] Attending Clinician Unavailable MIROSLAVA MENDOZA Attending Clinician Unavailable LAYNE ROTHMAN Attending Clinician Unavailable Beckie Lopez Attending Clinician [phone] Layne Rothman MD Attending Clinician BECKIE EUGENE Attending Clinician Unavailable DESTINY ONEILL Attending Clinician Unavailable Destiny Oneill MD Attending Clinician Alida FERNANDO, Melony Truong Attending Clinician Unavailable KAMILLA ZHAO Attending Clinician [...] De La Torre MD Attending Clinician Miroslava Mendoza MD Attending Clinician Jessie [facility] Attending Clinician GABRIELLA SALAS Attending Clinician Unavailable ANDREA PAULA Attending Clinician Unavailable Yumiko NI, Daphney Attending Clinician Unavailable Gramm Corry JOHNS Attending Clinician GRAMMCORRY Attending Clinician Unavailable Caprice Henriquez MD Attending Clinician Caprice Ozuna RN Attending Clinician Unavailable Pob, [facility] Main Attending Clinician Unavailable Jorge Edmondson Attending Clinician Unavailable SHORTY YU Attending Clinician Unavailable Eladia Attending Clinician Unavailable Emily Garcia MA Attending Clinician Unavailable LAUREEN MILLAN Attending Clinician Unavailable Laureen Millan NP Attending Clinician LAILA ORELLANA Attending Clinician Unavailable LAILA ORELLANA Attending Clinician Unavailable Vineet Tello MD Attending Clinician VINEET TELLO Attending Clinician Unavailable CHELA BLANCO Attending Clinician Unavailable EMERY VALIENTE Attending Clinician Unavailable Tatiana MITCHELL Attending Clinician Unavailable Daria Zaman Attending Clinician Unavailable ROGE TENORIO Attending Clinician Unavailable RICARDO POLLARD K.HGabe Attending Clinician Unavailable ATANASDIEUDONNE, STRAHIL T Attending Clinician Unavailable ATANASDIEUDONNE, STRAHIL T Attending Clinician Unavailable TAMMY LINDO Attending Clinician Unavailable LIANA JOSEPH Attending Clinician Unavailable SHANTI DUCKWORTH Attending Clinician Unavailable BALJIT CURRY Attending Clinician Unavailable DORITA MORE Attending Clinician Unavailable FABRICIO DOSS Attending Clinician Unavailable CL DEGROOT Attending Clinician Unavailable LAKISHA MAN Admitting Clinician Unavailable CECILE ASHER Admitting Clinician Unavailable DOE LI Admitting Clinician Unavailable Cuca Yi Admitting Clinician Unavailable Physician, No Primary or Family Admitting Clinician Unavaila Lelia Urbina M Admitting Clinician Unavailable Yesika Luo Admitting Clinician Unavailable UNDEFINED Admitting Clinician Unavailable JENNIFER CARBONE Admitting Clinician Unavailable Jennifer Carbone MD Admitting Clinician LISANDRO DAILEY Admitting Clinician Unavailable DR DANNI SPANGLER Admitting Clinician Unavailable ROCK PORTILLO Admitting Clinician Unavailable MU WANG Admitting Clinician Unavailable Neris Estrada Admitting Clinician Unavailable LIVIA BRADY Admitting Clinician Unavailable Deshaun Saavedra MD Admitting Clinician DESHAUN SAAVEDRA Admitting Clinician Unavailable STELLA WORLEY Admitting Clinician Unavailable Cecile Asher MD Admitting Clinician AN DE LA TORRE Admitting Clinician Unavailable DESTINY ONEILL Admitting Clinician Unavailable Eladia Admitting Clinician Unavailable CAPRICE HENRIQUEZ Admitting Clinician Unavailable Payers Payer Name Policy Type Policy Number Effective Date Expiration Date S ewa MEDICAID OF [place] [id number] 2022 00:00:00 [facility] DUAL [id number] 2021 COMP CHOICE PPO DSNP 00:00:00 [facility] [place] STAR PLUS [id number] 2021 00:00:00 [employer] MEDICARE [id number] 2022 00:00:00 [facility] STAR [id number] 2016 PLAN 00:00:00 [id number] 1959 00:00:00 [facility] [id number] 2022 2022 MCR HMO 00:00:00 00:00:00 [facility] HEALTH DAYHR8 2021 (MEDICARE 00:00:00 REPLACEMENT HMO) [employer] [id number] 2020 BEHAVIORAL SOLUTIONS 00:00:00 Problems Condition Condition Condition Status Onset Resolution Last Treating Co mments Source Name Details Category Date Date Treatment Clinician Date Anemia Anemia Disease Active Univers 5-26 ity of 00:00: [place] [id number] Medical Branch Chest Chest Disease Active 2023-0 Univers pain, pain, 5-25 ity of [place] d type 00 [facility] Hyponatrem Hyponatrem Disease Active U nivers ia ia 5-25 ity of 00:00: [place] [facility] Abdominal Abdominal Disease Active [facility]15 [facility] 00:[facility]: Medical 00 [place] Debility Debility Disease [facility] Urinary Urinary Disease Active [facility] retention retention 5-15 [facility] 00:[facility] Center Candidemia Candidemia Disease Recurre Overvie w: [facility]: g of this note Center might be different from the original. 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 3-23 [facility] 00:00: [facility] 00 [place] Intellectu Intellectu Disease Active [facility] al al 1-30 [facility] disability disability 00:00: Me dical 00 Center 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 00:00: Medical 00 [place] Migraines Migraines Disease Active Uni vers 1-24 ity of 00:00: [place] [facility] Allergic Allergic Disease Active Unive rs rhinitis rhinitis 1-24 ity of 00:00: [address] Branch (HFpEF) (HFpEF) Disease Active Univers heart heart 1-23 ity of failure failure 00:00: [place] with with 00 [facility] preserved preserved Bran ch ejection ejection fraction fraction Diarrhea, Diarrhea, Disease Active Uni vers unspecifie unspecifie 1-20 it y of d type d type 00:00: [place] [facility] Constipati Constipati Disease Active U nivers [...] Active Univers 1-20 ity of 00:00: [place] [facility] Nausea Nausea Disease Active Univers 1-20 ity of 00:00: Medical Branch Gastritis Gastritis Disease Active Uni vers without without 1-20 [place]y of bleeding, bleeding, [place] unspec[place]specifie 00 Me dical d d Branch chronicity chronicity , , unspecifie unspecifie d d gastritis gastritis type type Overflow Overflow Disease Active Unive rs diarrhea diarrhea 1-20 ity of 00:00: Medical Branch Allergy, Allergy, Disease Active 2021-09 [...] Added automatic ally from request for surgery [id number] Chronic Chronic Disease Active Overview: Univ ers superficia superficia 4-05 Formattin ity of l l 00:00: g of this [place] gastritis gastritis 00 note Medi cipriano without without might be Branch bleeding bleeding different from the original. Added automatic ally from request for surgery [id number] Hyperplast Hyperplast Disease Active Overview : Univers ic polyps ic polyps 4-05 Formattin i ty of of stomach of stomach 00:00: g of this note Medical might be Branch different from the original. Added automatic ally from request for surgery [id number] Indigestio Indigestio Disease Active 2020-09 Overview : Univers n n 2-15 Formattin ity of 00:00: g of this note Medical might be Branch different from the original. Added automatic ally from request for surgery [id number] Bloating Bloating Disease Active 2020-09 Overview: Un jerrod 2-15 Formattin ity of 00:00: g of this note Medical might be Branch different from the original. 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 [place] disorder[place] disorder, [facility] in in Branch remission remission Hypothyroi Hypothyroi Disease Active U nivers d d 2-05 ity of 00:00: [place] [facility] Essential Essential Disease Active Uni vers hypertensi hypertensi 2-05 it y of on, benign on, benign [place] [facility] Well woman Well woman Disease Active U nivers exam exam 2-05 ity of 00:00: [place] [facility] Chest pain Chest pain Disease Active U nivers 9-13 ity of 00:00: [place] [facility] Peripheral Peripheral Disease Active U nivers neuropathy neuropathy it y of [facility] 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 ity of 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) [facility] Acute Acute Disease Recurre [facility] renal renal nce [facility] failure on failure on Me dical dialysis dialysis Center ALISSA (acute ALISSA (acute Disease Resolve 2023-02-07 2023-02-[address] kidney kidney d 00:00:00 07:28:52 [facility] injury) injury) [facility] Center Allergies, Adverse Reactions, Alerts Allergy Allergy Status Severity Reaction(s) Onset Inactive Treating Comm ents Source Name Type Date Date Clinician IV DA Active U "[facility] CONTRAST DOWN" 03-18 [place] 00:00: e 00 Medical Center GADOLINI Allergy Active High Other [facility] UM-CONTA 5-15 [facility] INING 00:00: Medical CONTRAST 00 Center MEDIA IODINATE Allergy Active High Other [facility] D 5-15 [facility] CONTRAST 00:00: Medical MEDIA 00 Center Gadolini Propensi Active Other (See Patient C [facility] um-Conta ty to Comments) 5-15 said she Olga es ining adverse 00:00: is Medical Contrast reaction 00 severely Cent er Media s allergic to CT scan IV Contrast Dye Iodinate Propensi Active Other (See 2022-[address] d ty to Comments) 5-15 said she [facility] Contrast adverse 00:00: is Medical Media reaction 00 severely Center s allergic to CT scan IV Contrast Dye Geodon DA Active Unknown 2022-0 [facility] 5-14 Medical 00:00: Center 00 Amoxicil DA Active Unknown 2022-0 [facility] helen 5-14 Medical 00:00: Center 00 Codeine DA Active Unknown 2022-0 [facility] 5-14 Medical 00:00: Center 00 Demerol DA Active Unknown 2022-0 [facility] 5-14 Medical 00:00: Center 00 Tessalon DA Active Unknown 2022-0 [facility] Perles -14 Medical 00:00: Center 00 Meclizin DA Active Unknown 2022-0 [facility] e 5-14 Medical 00:00: Center 00 ziprasid DA Active SV HALLUCINATIO 2022-0 HC A one NS 2-25 [place] 00:00: e 00 Medical Center lorazepa DA Active SV SWELLING 2022-0 [facility] m 2-25 [place] 00:[facility]: e 00 Medical Center codeine DA Active SD ITCHING 2022-0 [facility] 2-25 [place] 00:00: e 00 Medical Center amoxicil DA Active SD HIVES 2022-0 [facility] helen 2-25 [place] 00:00: e 00 Medical Center meperidi DA Active U UNKNOWN 2022-0 [facility] ne 2-25 [place] 00:00: e 00 Medical Center diphenhy DA Active MO SWELLING 2022-0 [facility] dramine 2-25 [place] 00:00: e 00 Medical Center meclizin DA Active SV ANAPHYLAXIS 2022-0 [facility] e 2-25 [place] 00:00: e 00 Medical Center tomato FA Active SD SNEEZING 2022-0 [facility] 2-25 [place] 00:00: e 00 Medical Center meperidi DA Active U UNKNOWN 2022-0 [facility] ne 2-24 [place] 00:00: d 00 Medical Center ziprasid DA Active SV HALLUCINATIO 2022-0 HC A one NS 2-24 [place] 00:00: d 00 Medical Center Milk Propensi Active Other - See 2019-0 sneeze Uni vers ty to comments 8-14 ity of adverse 00:00: [place] reaction 00 Medical s Branch MILK DRUG Active Other-Cmnt 2019-0 Univer s INGREDI 8-14 ity of 00:00: [place] 00 Medical Branch Tomato Propensi Active Other - See 2018-0 Tomato Uni vers ty to comments 7 sauce ity of adverse 00:00: reportedl [place] reaction 00 y causes Medica l s excessive Branch sneezing. But pt still eats it. Patient can eat tomato TOMATO DRUG Active Low Other-Cmnt 2017-0 Univer s INGREDI 7-09 ity of 00:00: [...] Medical 00 Center Codeine Drug Active Itching 2018-[address] [facility] Allergy 1-17 [facility] 00:00: Medical 00 Center Lorazepa Propensi [...] Medical 00 Center Lorazepa Drug Active Swelling 2017-1 Hard to [facility] t m Allergy 0-02 swallow [facility] 00:00: Medical 00 Center Diphenhy Propensi Active [...] High Swelling 2017-0 [facility] ATE 11-04 [facility] 00:00: Medical 00 Center Benzonat Drug Active Swelling 2017-[address] ate Allergy 11-04 in [facility] 00:00: throat, Medical 00 difficult Center y swallowin g and breathing Meclizin Propensi Active Anaphylaxis 2017-0 U nivers e ty to 10-18 ity of adverse 00:00: [place] reaction 00 Medical s Branch MECLIZIN DRUG Active High Anaphylaxis 2017-0 Uni vers E INGREDI 10-18 ity of 00:00: [place] 00 Medical Branch MECLIZIN Allergy Active High Anaphylaxis 2017-[address] [facility] 10-18 [facility] 00:00: Medical 00 Center Meclizin Drug Active Anaphylaxis 2017-[address] e Allergy 10-18 [facility] 00:00: Medical 00 Center Amoxicil Propensi Active Hives 2015-0 Univer s helen ty to 05-30 ity [...] AMOXICIL DRUG Active High Hives 2015-0 Univers HELEN INGREDI - ity of 00:00: [place] 00 Medical Branch AMOXICIL Allergy Active High Hives 2014-[address] [facility] HELEN -04 [facility] 00:00: Medical 00 Center MEPERIDI Allergy Active High 2015-[address] [facility] NE HCL 9-04 [facility] 00:00: Medical 00 Center ZIPRASID Allergy Active High Hives 2014- [facility] ONE HCL 9-04 [facility] 00:00: Medical 00 Center Amoxicil Drug Active Hives 2014- [facility] helen Allergy 9-04 [facility] 00:00: Medical 00 Center Meperidi Drug Active Severe 2014- Other [facility] ne Hcl Allergy 9-04 reaction( [facility] 00:00: s): Medical 00 Hallucina Center tions Ziprasid Drug Active Hives [facility] one Hcl Allergy 9-04 [facility] 00:00: Medical 00 Center No Known DA Active [facility] Social History Social Habit Start Date Stop Date Quantity Comments Source History SDOH Social Unive rsity of Connections [facility] Med ical Together Branch History SDOH Social Unive rsity of Connections [facility] Medical Branch History SDOH Social Unive rsity of Connections [place] [facility] Membership Branch History SDOH Social Unive rsity of Connections [place] [facility] Meetings Branch History SDOH University o f Housing Places [facility] Gender identity [facility] [place] [facility] Sexual orientation [facility] [place] [facility] History SDOH [facility] Alcohol Std Drinks Medica l Center History SDOH [facility] Alcohol Binge Medical Navin ter History SDOH [facility] Alcohol Comment Medical C enter History of Social 2023-03-07 2023-03-07 Univers ity of function 00:00:00 00:00:00 [place] [facility] Exposure to 2023-02-07 2023-02-17 Not sure University of SARS-CoV-2 (event) 00:00:00 02:13:00 [place] [facility] History SDOH 2023-02-17 2023-02-17 0 University o f Physical Activity 00:00:00 00:00:00 [place] M edical DPW Branch History SDOH 2023-02-17 2023-02-17 0 University o f Physical Activity 00:00:00 00:00:00 [place] M edical MPS Branch History SDOH 2023-02-17 2023-02-17 5 University o f Financial 00:00:00 00:00:00 [place] [facility] History SDOH Food 2023-02-17 2023-02-17 1 Univers ity of Worry 00:00:00 00:00:00 [place] [facility] History SDOH Food 2023-02-17 2023-02-17 1 Univers ity of Scarcity 00:00:00 00:00:00 [place] [facility] History SDNJ 2023-02-17 2023-02-17 2 University o f Transport Med 00:00:00 00:00:00 [place] Medic al Branch History SDNJ 2023-02-17 2023-02-17 2 University o f Transport Non-Med 00:00:00 00:00:00 [facility] edical Branch History [facility] 2023-02-17 2023-02-17 2 University o f Housing Unable to 00:00:00 00:00:00 [facility] Pay Branch History [facility] 2023-02-17 2023-02-17 2 University o f Housing Homeless 00:00:00 00:00:00 [facility] [place] [facility] dical Last Year Branch Alcohol intake 2023-02-07 2023-02-[address] Olga es 00:00:00 00:00:00 [facility]drinker [facility] Tobacco use and 2022-10-22 2022-10-[address] Aiyana kes exposure 00:00:00 00:00:00 tobacco non-user Medical Center History [facility] 2022-10-22 2022-10-[address] [facility] Alcohol Frequency 00:00:00 00:00:00 Medical Center History [facility] Social 2022-10-19 2022-10-19 5 Unive rsity of Connections Phone 00:00:00 00:00:00 [facility] [place] [facility] History [facility] Social 2022-10-19 2022-10-19 7 Unive rsity of Connections Living 00:00:00 00:00:[address] [facility] Tobacco Comment 2022-06-17 2022-06-17 10 years ago Univers ity of 00:00:00 00:00:[address] [facility] Cigarettes smoked 2017-10-20 2017-10-20 Univers ity of current (pack per 00:00:00 00:00:00 [facility] ) - Reported Branch Cigarette 2017-10-20 2017-10-20 University of pack-years 00:00:00 00:00:[address] [facility] History of tobacco 1982-10-20 2007-10-20 Cigarette Smoker University of use 00:00:00 00:00:[address] [facility] Sex [birth year] At [birth year] LORENZO Rubalcava 00:00:00 00:00:00 Medical Center Smoking Status Start Date Stop Date Source Never smoked tobacco [facility] Ex-smoker 2017-10-20 00:00:00 2017-10-20 00:00:00 [facility] Medications Ordered Filled Start Stop Current Ordering Indication Dosage Frequency Signature Comments Components Source Medication Medication Date Date Medication? Clinician (SIG) Name Name magnesium 2022- No 2g 2 g, IV Univ ers sulfate in 02-22 Piggyback, it y of water 2 15:00: 16:01 Administer Emanuel as gram/50 mL 00 :00 over 60 Medica l (4 %) Minutes, Branch infusion 2 ONCE, 1 g dose, On Tue02/22/23 at 1000, Routine vitamin C Yes 1000mg Take 1,000 Univers with derrell 5-30 mg by ity of hips 1,000 12:56: mouth [place] mg tablet 43 daily. Medical Branch Lidocaine 4 Yes 1{patch Apply 1 Univers % PtMd 5-30 } Patch to ity of 12:56: area(s) in [place] 43 the Medical morning. Branch melatonin 3 Yes 3mg Take 1 Univ ers mg tablet 5-30 tablet by ity o f 12:56: mouth at [place] 43 bedtime. Medical Branch methocarbam Yes 750mg Take 1 Uni vers oL 750 mg 5-30 tablet by ity o f tablet 12:56: mouth 4 [place] 43 (four) Medical times Branch daily. traMADoL Yes 100mg Take 100 Univ ers 100 mg Tab 5-30 mg by ity of 12:56: mouth [place] 43 every 6 Medical (six) Branch hours as needed for Pain (scale 4-6). oxyCODONE 5 0 Yes 5mg Take 1 Univ ers mg 5-30 tablet by ity of immediate 12:56: mouth [place] release 43 every 6 Medical tablet (six) Branch hours as needed. acetaminoph Yes 650mg Take 2 Uni vers en 325 mg 5-30 tablets by ity of tablet 12:56: mouth [place] 43 every 6 Medical (six) Branch hours as needed. albuterol 2023-0 Yes 2{puff} Inhale 2 U nivers (VENTOLIN 5-30 Puffs ity of HFA) 90 12:56: every 4 [place] mcg/actuati 43 (four) Medica l on inhaler hours as Branc h needed for Wheezing or Shortness of Breath. aspirin 81 2022-0 Yes Take by Univ ers mg EC 5-30 mouth ity of tablet 12:56: daily. [place] [address] Medical Branch atovaquone 2022-0 Yes 750mg Take 5 mL U nivers 750 mg/5 mL 5-30 by mouth ity of suspension 12:56: in the [place] [address] morning. Medical Branch ciprofloxac 2022-0 Yes 500mg Take 1 Uni vers in HCl 5-30 tablet by ity of (CIPRO) 500 12:56: mouth [place] mg tablet 43 the Medical morning. Branch dicyclomine 2022-0 Yes 10mg Take 1 Univ ers 10 mg 5-30 capsule by ity of capsule 12:56: mouth 4 [place] 43 (four) Medical times Branch daily. diphenoxyla 2022-0 Yes 1{tbl} Take 1 Un jerrod te-atropine 5-30 tablet by ity of 2.5-0.025 12:56: mouth [place] mg tablet 43 every 6 Medical (six) Branch hours as needed. Fluticasone 2022-0 Yes 1{puff} Inhale 1 Univers -Salmeterol 5-30 Puff every it y of (ADVAIR 12:56: 12 [place] DISKUS) 43 (twelve) Medical 100-50 hours. Branch mcg/dose inhalation disk foLIC acid 2022-0 Yes 1mg Take 1 Unive rs 1 mg tablet 5-30 tablet by ity of 12:56: mouth in [place] 43 the Medical morning. Branch gabapentin 2022-0 Yes 300mg Take 1 Univ ers 300 mg 5-30 capsule by ity of capsule 12:56: mouth at [place] [address] bedtime. Medical Branch pantoprazol 2022-0 Yes 40mg Take 1 Univ ers e 40 mg EC 5-30 tablet by ity of tablet 12:56: mouth in [place] [address] the Medical morning Branch and 1 tablet in the evening. calcium 3-0 Yes 1{tbl} Take 1 Univer s polycarboph 5-30 tablet by ity of [place] 12:56: mouth 4 [place] (FIBERCON 43 (four) Medical ORAL) times Branch daily. PREDNISONE 0 Yes 15mg Take 15 mg U nivers ORAL 5-30 by mouth ity of 12:56: in the [place] 43 morning. Medical For 3 days Branch starting 02/15/2023 tamsulosin 0 Yes .4mg Take 1 Unive rs 0.4 mg 24 5-30 capsule by ity of hr capsule 12:56: mouth in [place] 43 the Medical morning. Branch ipratropium 0 Yes .5mg Inhale 2.5 Univers 0.02 % 5-30 mL every 6 ity of nebulizer 12:56: (six) [place] solution 43 hours as Medical needed for Branch Wheezing or Shortness of Breath. insulin Yes inject Univers lispro 5-30 under the ity of (HUMALOG 12:56: skin. [place] U-100 43 Medical INSULIN [place]) Branch vitamin C Yes 1000mg Take 1,000 [facility] with derrell 5-30 mg by ity of hips 1,000 12:56: mouth [place] mg tablet 43 daily. Medical Branch Lidocaine 4 Yes 1{patch Apply 1 [facility] % PtMd 5-30 } Patch to ity of 12:56: area(s) in [place] 43 the Medical morning. Branch melatonin 3 Yes 3mg Take 1 Univ ers mg tablet 5-30 tablet by ity o f 12:56: mouth at [place] 43 bedtime. Medical Branch methocarbam 0 Yes 750mg Take 1 Uni vers oL 750 mg 5-30 tablet by ity o f tablet 12:56: mouth 4 [place] 43 (four) Medical times Branch daily. traMADoL 0 Yes 100mg Take 100 Univ ers 100 mg Tab 5-30 mg by ity of 12:56: mouth [place] 43 every 6 Medical (six) Branch hours as needed for Pain (scale 4-6). oxyCODONE 5 0 Yes 5mg Take 1 Univ ers mg 5-30 tablet by ity of immediate 12:56: mouth [place] release 43 every 6 Medical tablet (six) Branch hours as needed. acetaminoph 0 Yes 650mg Take 2 Uni vers en 325 mg 5-30 tablets by ity of tablet 12:56: mouth [place] 43 every 6 Medical (six) Branch hours as needed. albuterol 2023-0 Yes 2{puff} Inhale 2 U nivers (VENTOLIN 5-30 Puffs ity of HFA) 90 12:56: every 4 [place] mcg/actuati 43 (four) Medica l on inhaler hours as Branc h needed for Wheezing or Shortness of Breath. aspirin 81 2022-0 Yes Take by Univ ers mg EC 5-30 mouth ity of tablet 12:56: daily. [place] [address] Medical Branch atovaquone 2022-0 Yes 750mg Take 5 mL U nivers 750 mg/5 mL 5-30 by mouth ity of suspension 12:56: in the [place] [address] morning. Medical Branch ciprofloxac 2022-0 Yes 500mg Take 1 Uni vers in HCl 5-30 tablet by ity of (CIPRO) 500 12:56: mouth in [place] mg tablet 43 the Medical morning. Branch dicyclomine 2022-0 Yes 10mg Take 1 Univ ers 10 mg 5-30 capsule by ity of capsule 12:56: mouth 4 [place] 43 (four) Medical times Branch daily. diphenoxyla 2022-0 Yes 1{tbl} Take 1 Un [facility] te-atropine 5-30 tablet by ity of 2.5-0.025 12:56: mouth [place] mg tablet 43 every 6 Medical (six) Branch hours as needed. Fluticasone 2022-0 Yes 1{puff} Inhale 1 [facility] -Salmeterol 5-30 Puff every it y of (ADVAIR 12:56: 12 [place] DISKUS) 43 (twelve) Medical 100-50 hours. Branch mcg/dose inhalation disk foLIC acid 2022-0 Yes 1mg Take 1 Unive rs 1 mg tablet 5-30 tablet by ity of 12:56: mouth in [place] [address] the Medical morning. Branch gabapentin 3-0 Yes 300mg Take 1 Univ ers 300 mg 5-30 capsule by ity of capsule 12:56: mouth at [place] [address] bedtime. Medical Branch pantoprazol 2022-0 Yes 40mg Take 1 Univ ers e 40 mg EC 5-30 tablet by ity of tablet 12:56: mouth in [place] [address] the Medical morning Branch and 1 tablet in the evening. calcium 3-0 Yes 1{tbl} Take 1 Univer s polycarboph 5-30 tablet by ity of il 12:56: mouth 4 [place] (FIBERCON 43 (four) Medical ORAL) times Branch daily. PREDNISONE 2022-0 Yes 15mg Take 15 mg U nivers ORAL 5-30 by mouth ity of 12:56: in the [place] 43 morning. Medical For 3 days Branch starting 02/15/2023 tamsulosin 2022-0 Yes .4mg Take 1 Unive rs 0.4 mg 24 5-30 capsule by ity of hr capsule 12:56: mouth in [place] 43 the Medical morning. Branch ipratropium 0 Yes .5mg Inhale 2.5 [facility] 0.02 % 5-30 mL every 6 ity of nebulizer 12:56: (six) [place] solution 43 hours as Medical needed for Branch Wheezing or Shortness of Breath. insulin 0 Yes inject [facility] lispro 5-30 under the ity of (HUMALOG 12:56: skin. [place] U-100 43 Medical INSULIN SC) Branch vitamin C 0 Yes 1000mg Take 1,000 [facility] with derrell 5-30 mg by ity of hips 1,000 12:56: mouth [place] mg tablet 43 daily. Medical Branch Lidocaine 4 0 Yes 1{patch Apply 1 [facility] % PtMd 5-30 } Patch to ity of 12:56: area(s) in [place] 43 the Medical morning. Branch melatonin 3 0 Yes 3mg Take 1 Univ ers mg tablet 5-30 tablet by ity o f 12:56: mouth at [place] 43 bedtime. Medical Branch methocarbam 0 Yes 750mg Take 1 [facility] vers oL 750 mg 5-30 tablet by ity o f tablet 12:56: mouth 4 [place] 43 (four) Medical times Branch daily. traMADoL 0 Yes 100mg Take 100 [facility] ers 100 mg Tab 5-30 mg by ity of 12:56: mouth [place] 43 every 6 Medical (six) Branch hours as needed for Pain (scale 4-6). oxyCODONE 5 2022-0 Yes 5mg Take 1 Univ ers mg 5-30 tablet by ity of immediate 12:56: mouth [place] release 43 every 6 Medical tablet (six) Branch hours as needed. acetaminoph 2022-0 Yes 650mg Take 2 Uni vers en 325 mg 5-30 tablets by ity of tablet 12:56: mouth [place] 43 every 6 Medical (six) Branch hours as needed. albuterol 2023-0 Yes 2{puff} Inhale 2 U nivers (VENTOLIN 5-30 Puffs ity of HFA) 90 12:56: every 4 [place] mcg/actuati 43 (four) Medica l on inhaler hours as Branc h needed for Wheezing or Shortness of Breath. aspirin 81 2022-0 Yes Take by Univ ers mg EC 5-30 mouth ity of tablet 12:56: daily. [place] [address] Medical Branch atovaquone 2022-0 Yes 750mg Take 5 mL U nivers 750 mg/5 mL 5-30 by mouth ity of suspension 12:56: in the [place] [address] morning. Medical Branch ciprofloxac 2022-0 Yes 500mg Take 1 Uni vers in HCl 5-30 tablet by ity of (CIPRO) 500 12:56: mouth in [place] mg tablet 43 the Medical morning. Branch dicyclomine 2022-0 Yes 10mg Take 1 [facility] ers 10 mg 5-30 capsule by ity of capsule 12:56: mouth 4 [place] 43 (four) Medical times Branch daily. diphenoxyla 2022-0 Yes 1{tbl} Take 1 Un [facility] te-atropine 5-30 tablet by ity of 2.5-0.025 12:56: mouth [place] mg tablet 43 every 6 Medical (six) Branch hours as needed. Fluticasone 2022-0 Yes 1{puff} Inhale 1 [facility] -Salmeterol 5-30 Puff every it y of (ADVAIR 12:56: 12 [place] DISKUS) 43 (twelve) Medical 100-50 hours. Branch mcg/dose inhalation disk foLIC acid 2022-0 Yes 1mg Take 1 Unive rs 1 mg tablet 5-30 tablet by ity of 12:56: mouth in [place] [address] the Medical morning. Branch gabapentin 2022-0 Yes 300mg Take 1 [facility] ers 300 mg 5-30 capsule by ity of capsule 12:56: mouth at [place] [address] bedtime. Medical Branch pantoprazol 2022-0 Yes 40mg Take 1 Univ ers e 40 mg EC 5-30 tablet by ity of tablet 12:56: mouth in [place] [address] the Medical morning Branch and 1 tablet in the evening. calcium 2022-0 Yes 1{tbl} Take 1 Univer s polycarboph 5-30 tablet by ity of il 12:56: mouth 4 [place] (FIBERCON 43 (four) Medical ORAL) times Branch daily. PREDNISONE 2022-0 Yes 15mg Take 15 mg U nivers ORAL 5-30 by mouth ity of 12:56: in the [place] 43 morning. Medical For 3 days Branch starting 02/15/2023 tamsulosin 2022-0 Yes .4mg Take 1 Unive rs 0.4 mg 24 5-30 capsule by ity of hr capsule 12:56: mouth in [place] 43 the Medical morning. Branch ipratropium 0 Yes .5mg Inhale 2.5 [facility] 0.02 % 5-30 mL every 6 ity of nebulizer 12:56: (six) [place] solution 43 hours as Medical needed for Branch Wheezing or Shortness of Breath. insulin 0 Yes inject [facility] lispro 5-30 under the ity of (HUMALOG 12:56: skin. [place] U-100 43 Medical INSULIN SC) Branch vitamin C 0 Yes 1000mg Take 1,000 [facility] with derrell 5-30 mg by ity of hips 1,000 12:56: mouth [place] mg tablet 43 daily. Medical Branch Lidocaine 4 0 Yes 1{patch Apply 1 [facility] % PtMd 5-30 } Patch to ity of 12:56: area(s) in [place] 43 the Medical morning. Branch melatonin 3 0 Yes 3mg Take 1 Univ ers mg tablet 5-30 tablet by ity o f 12:56: mouth at [place] 43 bedtime. Medical Branch methocarbam 0 Yes 750mg Take 1 [facility] vers oL 750 mg 5-30 tablet by ity o f tablet 12:56: mouth 4 [place] 43 (four) Medical times Branch daily. traMADoL 2022-0 Yes 100mg Take 100 [facility] ers 100 mg Tab 5-30 mg by ity of 12:56: mouth [place] 43 every 6 Medical (six) Branch hours as needed for Pain (scale 4-6). oxyCODONE 5 2022-0 Yes 5mg Take 1 Univ ers mg 5-30 tablet by ity of immediate 12:56: mouth [place] release 43 every 6 Medical tablet (six) Branch hours as needed. acetaminoph 2022-0 Yes 650mg Take 2 [facility] vers en 325 mg 5-30 tablets by ity of tablet 12:56: mouth [place] 43 every 6 Medical (six) Branch hours as needed. albuterol 2022-0 Yes 2{puff} Inhale 2 U nivers (VENTOLIN 5-30 Puffs ity of HFA) 90 12:56: every 4 [place] mcg/actuati 43 (four) Medica l on inhaler hours as Branc h needed for Wheezing or Shortness of Breath. aspirin 81 2022-0 Yes Take by Univ ers mg EC 5-30 mouth ity of tablet 12:56: daily. [place] [address] Medical Branch atovaquone 2022-0 Yes 750mg Take 5 mL U nivers 750 mg/5 mL 5-30 by mouth ity of suspension 12:56: in the [place] [address] morning. Medical Branch ciprofloxac 2022-0 Yes 500mg Take 1 Uni vers in HCl 5-30 tablet by ity of (CIPRO) 500 12:56: mouth in [place] mg tablet 43 the Medical morning. Branch dicyclomine 2022-0 Yes 10mg Take 1 [facility] ers 10 mg 5-30 capsule by ity of capsule 12:56: mouth 4 [place] 43 (four) Medical times Branch daily. diphenoxyla 2022-0 Yes 1{tbl} Take 1 Un jer[facility] te-atropine 5-30 tablet by ity of 2.5-0.025 12:56: mouth [place] mg tablet 43 every 6 Medical (six) Branch hours as needed. Fluticasone 2022-0 Yes 1{puff} Inhale 1 [facility] -Salmeterol 5-30 Puff every it y of (ADVAIR 12:56: 12 [place] DISKUS) 43 (twelve) Medical 100-50 hours. Branch mcg/dose inhalation disk foLIC acid 2022-0 Yes 1mg Take 1 Unive rs 1 mg tablet 5-30 tablet by ity of 12:56: mouth in [place] [address] the Medical morning. Branch gabapentin 2022-0 Yes 300mg Take 1 Univ ers 300 mg 5-30 capsule by ity of capsule 12:56: mouth at [place] [address] bedtime. Medical Branch pantoprazol 2022-0 Yes 40mg Take 1 Univ ers e 40 mg EC 5-30 tablet by ity of tablet 12:56: mouth in [place] [address] the Medical morning Branch and 1 tablet in the evening. calcium 3-0 Yes 1{tbl} Take 1 Univer s polycarboph 5-30 tablet by ity of il 12:56: mouth 4 [place] (FIBERCON 43 (four) Medical ORAL) times Branch daily. PREDNISONE 0 Yes 15mg Take 15 mg U nivers ORAL 5-30 by mouth ity of 12:56: in the [place] 43 morning. Medical For 3 days Branch starting 02/15/2023 tamsulosin 2022-0 Yes .4mg Take 1 Unive rs 0.4 mg 24 5-30 capsule by ity of hr capsule 12:56: mouth in [place] 43 the Medical morning. Branch ipratropium 0 Yes .5mg Inhale 2.5 [facility] 0.02 % 5-30 mL every 6 ity of nebulizer 12:56: (six) [place] solution 43 hours as Medical needed for Branch Wheezing or Shortness of Breath. insulin 0 Yes inject [facility] lispro 5-30 under the ity of (HUMALOG 12:56: skin. [place] U-100 43 Medical INSULIN SC) Branch vitamin C 0 Yes 1000mg Take 1,000 [facility] with derrell 5-30 mg by ity of hips 1,000 12:56: mouth [place] mg tablet 43 daily. Medical Branch Lidocaine 4 Yes 1{patch Apply 1 [facility] % PtMd 5-30 } Patch to ity of 12:56: area(s) in [place] 43 the Medical morning. Branch melatonin 3 0 Yes 3mg Take 1 Univ ers mg tablet 5-30 tablet by ity o f 12:56: mouth at [place] 43 bedtime. Medical Branch methocarbam 0 Yes 750mg Take 1 [facility] vers oL 750 mg 5-30 tablet by ity o f tablet 12:56: mouth 4 [place] 43 (four) Medical times Branch daily. traMADoL 0 Yes 100mg Take 100 [facility] ers 100 mg Tab 5-30 mg by ity of 12:56: mouth [place] 43 every 6 Medical (six) Branch hours as needed for Pain (scale 4-6). oxyCODONE 5 2022-0 Yes 5mg Take 1 Univ ers mg 5-30 tablet by ity of immediate 12:56: mouth [place] release 43 every 6 Medical tablet (six) Branch hours as needed. acetaminoph 2022-0 Yes 650mg Take 2 Uni vers en 325 mg 5-30 tablets by ity of tablet 12:56: mouth [place] 43 every 6 Medical (six) Branch hours as needed. albuterol 2022-0 Yes 2{puff} Inhale 2 U nivers (VENTOLIN 5-30 Puffs ity of HFA) 90 12:56: every 4 [place] mcg/actuati 43 (four) Medica l on inhaler hours as Branc h needed for Wheezing or Shortness of Breath. aspirin 81 2022-0 Yes Take by Univ ers mg EC 5-30 mouth ity of tablet 12:56: daily. [place] [address] Medical Branch atovaquone 2022-0 Yes 750mg Take 5 mL U nivers 750 mg/5 mL 5-30 by mouth ity of suspension 12:56: in the [place] [address] morning. Medical Branch ciprofloxac 2022-0 Yes 500mg Take 1 Uni vers in HCl 5-30 tablet by ity of (CIPRO) 500 12:56: mouth in [place] mg tablet 43 the Medical morning. Branch dicyclomine 2022-0 Yes 10mg Take 1 Univ ers 10 mg 5-30 capsule by ity of capsule 12:56: mouth 4 [place] 43 (four) Medical times Branch daily. diphenoxyla 2022-0 Yes 1{tbl} Take 1 Un jerrod te-atropine 5-30 tablet by ity of 2.5-0.025 12:56: mouth [place] mg tablet 43 every 6 Medical (six) Branch hours as needed. Fluticasone 2022-0 Yes 1{puff} Inhale 1 [facility] -Salmeterol 5-30 Puff every it y of (ADVAIR 12:56: 12 [place] DISKUS) 43 (twelve) Medical 100-50 hours. Branch mcg/dose inhalation disk foLIC acid 2022-0 Yes 1mg Take 1 Unive rs 1 mg tablet 5-30 tablet by ity of 12:56: mouth in [place] [address] the Medical morning. Branch gabapentin 2022-0 Yes 300mg Take 1 Univ ers 300 mg 5-30 capsule by ity of capsule 12:56: mouth at [place] [address] bedtime. Medical Branch pantoprazol 2022-0 Yes 40mg Take 1 Univ ers e 40 mg EC 5-30 tablet by ity of tablet 12:56: mouth in [place] [address] the Medical morning Branch and 1 tablet in the evening. calcium 3-0 Yes 1{tbl} Take 1 Univer s polycarboph 5-30 tablet by ity of il 12:56: mouth 4 [place] (FIBERCON 43 (four) Medical ORAL) times Branch daily. PREDNISONE 2022-0 Yes 15mg Take 15 mg U nivers ORAL 5-30 by mouth ity of 12:56: in the [place] 43 morning. Medical For 3 days Branch starting 02/15/2023 tamsulosin 2022-0 Yes .4mg Take 1 Unive rs 0.4 mg 24 5-30 capsule by ity of hr capsule 12:56: mouth in [place] 43 the Medical morning. Branch ipratropium 0 Yes .5mg Inhale 2.5 [facility] 0.02 % 5-30 mL every 6 ity of nebulizer 12:56: (six) [place] solution 43 hours as Medical needed for Branch Wheezing or Shortness of Breath. insulin 0 Yes inject [facility] lispro 5-30 under the ity of (HUMALOG 12:56: skin. [place] U-100 43 Medical INSULIN SC) Branch vitamin C 0 Yes 1000mg Take 1,000 [facility] with derrell 5-30 mg by ity of hips 1,000 12:56: mouth [place] mg tablet 43 daily. Medical Branch Lidocaine 4 0 Yes 1{patch Apply 1 [facility] % PtMd 5-30 } Patch to ity of 12:56: area(s) in [place] 43 the Medical morning. Branch melatonin 3 0 Yes 3mg Take 1 Univ ers mg tablet 5-30 tablet by ity o f 12:56: mouth at [place] 43 bedtime. Medical Branch methocarbam 0 Yes 750mg Take 1 Uni vers oL 750 mg 5-30 tablet by ity o f tablet 12:56: mouth 4 [place] 43 (four) Medical times Branch daily. traMADoL 0 Yes 100mg Take 100 Univ ers 100 mg Tab 5-30 mg by ity of 12:56: mouth [place] 43 every 6 Medical (six) Branch hours as needed for Pain (scale 4-6). oxyCODONE 5 2022-0 Yes 5mg Take 1 Univ ers mg 5-30 tablet by ity of immediate 12:56: mouth [place] release 43 every 6 Medical tablet (six) Branch hours as needed. acetaminoph 2022-0 Yes 650mg Take 2 Uni vers en 325 mg 5-30 tablets by ity of tablet 12:56: mouth [place] 43 every 6 Medical (six) Branch hours as needed. albuterol 2022-0 Yes 2{puff} Inhale 2 U nivers (VENTOLIN 5-30 Puffs ity of HFA) 90 12:56: every 4 [place] mcg/actuati 43 (four) Medica l on inhaler hours as Branc h needed for Wheezing or Shortness of Breath. aspirin 81 2022-0 Yes Take by Univ ers mg EC 5-30 mouth ity of tablet 12:56: daily. [place] [address] Medical Branch atovaquone 2022-0 Yes 750mg Take 5 mL U nivers 750 mg/5 mL 5-30 by mouth ity of suspension 12:56: in the [place] [address] morning. Medical Branch ciprofloxac 2022-0 Yes 500mg Take 1 Uni vers in HCl 5-30 tablet by ity of (CIPRO) 500 12:56: mouth in [place] mg tablet 43 the Medical morning. Branch dicyclomine 2022-0 Yes 10mg Take 1 Univ ers 10 mg 5-30 capsule by ity of capsule 12:56: mouth 4 [place] 43 (four) Medical times Branch daily. diphenoxyla 2022-0 Yes 1{tbl} Take 1 Un jer[facility] te-atropine 5-30 tablet by ity of 2.5-0.025 12:56: mouth [place] mg tablet 43 every 6 Medical (six) Branch hours as needed. Fluticasone 2022-0 Yes 1{puff} Inhale 1 [facility] -Salmeterol 5-30 Puff every it y of (ADVAIR 12:56: 12 [place] DISKUS) 43 (twelve) Medical 100-50 hours. Branch mcg/dose inhalation disk foLIC acid 2022-0 Yes 1mg Take 1 Unive rs 1 mg tablet 5-30 tablet by ity of 12:56: mouth in [place] [address] the Medical morning. Branch gabapentin 3-0 Yes 300mg Take 1 Univ ers 300 mg 5-30 capsule by ity of capsule 12:56: mouth at [place] [address] bedtime. Medical Branch pantoprazol 3-0 Yes 40mg Take 1 Univ ers e 40 mg EC 5-30 tablet by ity of tablet 12:56: mouth in [place] [address] the Medical morning Branch and 1 tablet in the evening. calcium 3-0 Yes 1{tbl} Take 1 Univer s polycarboph 5-30 tablet by ity of il 12:56: mouth 4 [place] (FIBERCON 43 (four) Medical ORAL) times Branch daily. PREDNISONE 0 Yes 15mg Take 15 mg U nivers ORAL 5-30 by mouth ity of 12:56: in the [place] 43 morning. Medical For 3 days Branch starting 02/15/2023 tamsulosin 2022-0 Yes .4mg Take 1 Unive rs 0.4 mg 24 5-30 capsule by ity of hr capsule 12:56: mouth in [place] 43 the Medical morning. Branch ipratropium 0 Yes .5mg Inhale 2.5 Univers 0.02 % 5-30 mL every 6 ity of nebulizer 12:56: (six) [place] solution 43 hours as Medical needed for Branch Wheezing or Shortness of Breath. insulin Yes inject [facility] lispro 5-30 under the ity of (HUMALOG 12:56: skin. [place] U-100 43 Medical INSULIN SC) Branch vitamin C Yes 1000mg Take 1,000 [facility] with derrell 5-30 mg by ity of hips 1,000 12:56: mouth [place] mg tablet 43 daily. Medical Branch vitamin C Yes 1000mg Take 1,000 [facility] with derrell 5-30 mg by ity of hips 1,000 12:56: mouth [place] mg tablet 43 daily. Medical Branch vitamin C Yes 1000mg Take 1,000 [facility] with derrell 5-30 mg by ity of hips 1,000 12:56: mouth [place] mg tablet 43 daily. Medical Branch vitamin C Yes 1000mg Take 1,000 [facility] with derrell 5-30 mg by ity of hips 1,000 12:56: mouth [place] mg tablet 43 daily. Medical Branch vitamin C 0 Yes 1000mg Take 1,000 [facility] with derrell 5-30 mg by ity of hips 1,000 12:56: mouth [place] mg tablet 43 daily. Medical Branch vitamin C 0 Yes 1000mg Take 1,000 [facility] with derrell 5-30 mg by ity of hips 1,000 12:56: mouth [place] mg tablet 43 daily. Medical Branch vitamin C Yes 1000mg Take 1,000 [facility] with derrell 5-30 mg by ity of hips 1,000 12:56: mouth [place] mg tablet 43 daily. Medical Branch vitamin C 0 Yes 1000mg Take 1,000 [facility] with derrell 5-30 mg by ity of hips 1,000 12:56: mouth [place] mg tablet 43 daily. [facility] vitamin C 0 Yes 1000mg Take 1,000 [facility] with derrell 5-30 mg by ity of hips 1,000 12:56: mouth [place] mg tablet 43 daily. [facility] vitamin C 0 Yes 1000mg Take 1,000 [facility] with derrell 5-30 mg by ity of hips 1,000 12:56: mouth [place] mg tablet 43 daily. [facility] vitamin C 0 Yes 1000mg Take 1,000 [facility] with derrell 5-30 mg by ity of hips 1,000 12:56: mouth [place] mg tablet 43 daily. [facility] vitamin C 0 Yes 1000mg Take 1,000 [facility] with derrell 5-30 mg by ity of hips 1,000 12:56: mouth [place] mg tablet 43 daily. [facility] vitamin C 0 Yes 1000mg Take 1,000 [facility] with derrell 5-30 mg by ity of hips 1,000 12:56: mouth [place] mg tablet 43 daily. [facility] vitamin C 0 Yes 1000mg Take 1,000 [facility] with derrell 5-30 mg by ity of hips 1,000 12:56: mouth [place] mg tablet 43 daily. [facility] vitamin C 0 Yes 1000mg Take 1,000 [facility] with derrell 5-30 mg by ity of hips 1,000 12:56: mouth [place] mg tablet 43 daily. [facility] vitamin C 0 Yes 1000mg Take 1,000 [facility] with derrell 5-30 mg by ity of hips 1,000 12:56: mouth [place] mg tablet 43 daily. [facility] vitamin C 0 Yes 1000mg Take 1,000 [facility] with derrell 5-30 mg by ity of hips 1,000 12:56: mouth [place] mg tablet 43 daily. [facility] vitamin C 0 Yes 1000mg Take 1,000 [facility] with derrell 5-30 mg by ity of hips 1,000 12:56: mouth [place] mg tablet 43 daily. [facility] vitamin C 0 Yes 1000mg Take 1,000 [facility] with derrell 5-30 mg by ity of hips 1,000 12:56: mouth [place] mg tablet 43 daily. [facility] vitamin C 0 Yes 1000mg Take 1,000 [facility] with derrell 5-30 mg by ity of hips 1,000 12:56: mouth [place] mg tablet 43 daily. [facility] Branch vitamin C 0 Yes 1000mg Take 1,000 [facility] with derrell 5-30 mg by ity of hips 1,000 12:56: mouth [place] mg tablet 43 daily. [facility] vitamin C 0 Yes 1000mg Take 1,000 [facility] with derrell 5-30 mg by ity of hips 1,000 12:56: mouth [place] mg tablet 43 daily. [facility] Branch vitamin C 0 Yes 1000mg Take 1,000 [facility] with derrell 5-30 mg by ity of hips 1,000 12:56: mouth [place] mg tablet 43 daily. [facility] vitamin C 0 Yes 1000mg Take 1,000 [facility] with derrell 5-30 mg by ity of hips 1,000 12:56: mouth [place] mg tablet 43 daily. [facility] vitamin C 0 Yes 1000mg Take 1,000 [facility] with derrell 5-30 mg by ity of hips 1,000 12:56: mouth [place] mg tablet 43 daily. [facility] Branch vitamin C 0 Yes 1000mg Take 1,000 [facility] with derrell 5-30 mg by ity of hips 1,000 12:56: mouth [place] mg tablet 43 daily. [facility] vitamin C 0 Yes 1000mg Take 1,000 [facility] with derrell 5-30 mg by ity of hips 1,000 12:56: mouth [place] mg tablet 43 daily. [facility] vitamin C 0 Yes 1000mg Take 1,000 [facility] with derrell 5-30 mg by ity of hips 1,000 12:56: mouth [place] mg tablet 43 daily. [facility] vitamin C 0 Yes 1000mg Take 1,000 [facility] with derrell 5-30 mg by ity of hips 1,000 12:56: mouth [place] mg tablet 43 daily. [facility] vitamin C 0 Yes 1000mg Take 1,000 [facility] with derrell 5-30 mg by ity of hips 1,000 12:56: mouth [place] mg tablet 43 daily. [facility] vitamin C 0 Yes 1000mg Take 1,000 [facility] with derrell 5-30 mg by ity of hips 1,000 12:56: mouth [place] mg tablet 43 daily. [facility] vitamin C 0 Yes 1000mg Take 1,000 [facility] with derrell 5-30 mg by ity of hips 1,000 12:56: mouth [place] mg tablet 43 daily. [facility] Branch vitamin C 0 Yes 1000mg Take 1,000 [facility] with derrell 5-30 mg by ity of hips 1,000 12:56: mouth [place] mg tablet 43 daily. [facility] Branch vitamin C 0 Yes 1000mg Take 1,000 [facility] with derrell 5-30 mg by ity of hips 1,000 12:56: mouth [place] mg tablet 43 daily. [facility] Branch vitamin C 0 Yes 1000mg Take 1,000 [facility] with derrell 5-30 mg by ity of hips 1,000 12:56: mouth [place] mg tablet 43 daily. [facility] Branch vitamin C 0 Yes 1000mg Take 1,000 [facility] with derrell 5-30 mg by ity of hips 1,000 12:56: mouth [place] mg tablet 43 daily. [facility] vitamin C 0 Yes 1000mg Take 1,000 [facility] with derrell 5-30 mg by ity of hips 1,000 12:56: mouth [place] mg tablet 43 daily. Medical Branch desitin-zin 2022-0 Yes [id number] Apply to Univers c 5-30 affected ity of oxide-maalo 00:00: area(s) [place] x-nystatin 00 daily. Medical Oint Branch ointment desitin-zin 2022-0 Yes [id number] Apply to Univers c 5-30 affected ity of oxide-maalo 00:00: area(s) [place] x-nystatin 00 daily. Medical Oint Branch ointment desitin-zin 3-0 Yes [id number] Apply to Univers c 5-30 affected ity of oxide-maalo 00:00: area(s) [place] x-nystatin 00 daily. Medical Oint Branch ointment desitin-zin 3-0 Yes [id number] Apply to Univers c 5-30 affected ity of oxide-maalo 00:00: area(s) [place] x-nystatin 00 daily. Medical Oint Branch ointment desitin-zin 3-0 Yes [id number] Apply to Univers c 5-30 affected ity of oxide-maalo 00:00: area(s) [place] x-nystatin 00 daily. Medical Oint Branch ointment desitin-zin 3-0 Yes [id number] Apply to Univers c 02-22 affected ity of oxide-maalo 00:00: area(s) [place] x-nystatin 00 daily. Medical Oint Branch ointment HYDROcodone 2022- No [id number] 1{tbl} Take 1 U nivers -acetaminop 5-30 06-07 tablet by it y of hen 5-325 00:00: 04:59 mouth [place] mg tablet 00 :00 every 6 Medical (six) Branch hours as needed for Pain (scale 4-6) for up to 7 days. Indication s: acute pain HYDROcodone 2022- No [id number] 1{tbl} Take 1 U nivers -acetaminop 5-30 06-07 tablet by it y of hen 5-325 00:00: 04:59 mouth [place] mg tablet 00 :00 every 6 Medical (six) Branch hours as needed for Pain (scale 4-6) for up to 7 days. Indication s: acute pain desitin-zin Yes Topical Uni vers c 02-19 (Apply To ity of oxide-maalo 14:00: Affected [place] x-nystatin 00 Areas), Medica l ointment DAILY, Branch First dose on 02/19/23 at 0900, Until Discontinu ed, Routine azithromyci No 500mg 500 mg, U nivers n 02-19 05-28 Oral, ity of (ZITHROMAX) 14:00: 13:19 Q24H, 2 [place] tablet 500 00 :00 doses, Medical mg First dose Branch on 02/19/23 at 0900, Last dose on 02/20/23 at 0900, SABRINA
Re ason for Anti-Infec tive: Empiric Therapy for Suspected Infection< br>Empiric Therapy Site: Respirator y
Durat ion of therapy: 72 hours butalbital- Yes 1{tbl} 1 tablet, Univers acetaminoph 02-19 Oral, ity of en-caff 06:45: Q4HPRN, [place] (ESGIC) 49 Starting Medical 50-325-40 on Sat Branch mg tablet 1 02/19/23 at tablet 0145, Until Discontinu ed, Routine, Pain (scale 4-6), Maigraine headaches NaCl 0.9% 0 2022- No at 100 Unive rs (NS) IV 02-18 05-30 mL/hr, IV ity of infusion 13:00: 13:13 Infusion, Emanuel as 00 :57 CONTINUOUS Medical , Starting Branch on Tue02/18/23 at 0800, Until Tu02/22/23 at 0813, Routine ondansetron 0 Yes 4mg 4 mg, Slow Univers (ZOFRAN 02-18 IV Push, ity of (PF)) 12:34: Q6HPRN, [place] injection 4 17 Nausea and Me dical mg Vomiting Branch (N/V), Starting on Tue02/18/23 at 0734
Do ses of ondansetro n 16 mg and above need to be administer ed via IV piggyback. For Dose >=24mg ECG monitoring is advisable.
heparin Yes 5000U 5,000 Univers (porcine) 02-18 Units, ity of injection 11:00: [place]cut[place]o [place] 5,000 Units 00 us, Q8H, Medi cipriano First dose Branch on Tue02/18/23 at 0600, Until Discontinu ed, Routine azithromyci 2022- No 500mg 500 mg, IV Univers n 02-18 Piggyback, ity of (ZITHROMAX) 08:00: 19:47 Q24H ABX, [place] 500 mg in 00 :35 3 doses, Medica l NaCl 0.9% First dose Bran ch (NS) 250 mL (after VIAL-MATE last IV reorder) piggyback on Tue02/18/23 at 0300, Last dose on Tue02/20/23 at 0300, Administer over 60 Minutes, 250 mL
Reas on for Anti-Infec tive: Empiric Therapy for Suspected Infection< br>Empiric Therapy Site: Respirator y
Durat ion of therapy: 72 hours rosuvastati 0 Yes 10mg 10 mg, Univ ers n (CRESTOR) 02-18 Oral, QHS, it y of tablet 10 02:00: [place] mg 00 on [facility] 02/17/23 at Branch 2100, Until Discontinu ed, Routine NaCl 0.9% No at 75 Univer s (NS) IV 02-17 05-26 mL/hr, IV ity of infusion 15:30: 12:55 Infusion, Emanuel as 00 :27 CONTINUOUS Medical , Starting Branch on [facility] 02/17/23 at 1030, Until Tue02/18/23 at 0755, Routine diltiazem 2022- No 120mg 120 mg, Uni vers XR 02-17 Oral, ity of (DILT-XR) 14:00: 13:33 DAILY, [place] capsule 120 00 :24 First dose Me dical mg on [facility] Branch 02/17/23 at 0900, Until Discontinu ed busPIRone Yes 20mg 20 mg, Univer s (BUSPAR) 02-17 Oral, BID, ity o f tablet 20 13:00: [place] dose [place] mg 00 on [facility] 02/17/23 at Branch 0800, Until Discontinu ed, Routine losartan No 50mg 50 mg, Univer s (COZAAR) 02-17 Oral, BID, ity of tablet 50 13:00: 13:33 First dose [place] mg 00 :44 on [facility] 02/17/23 at Branch 0800, Until Discontinu ed, Routine levothyroxi Yes 50ug 50 mcg, Uni vers ne 02-17 Oral, ity of (SYNTHROID) 11:00: QAM-0600, [place] tablet 50 00 First dose Medi cipriano mcg on [facility] 02/17/23 at 0600, Until Discontinu ed, Routine albuterol Yes 2{puff} 2 Puff, Un jerrod (VENTOLIN) 02-17 Inhalation ity of inhaler 2 10:25: , Q6HPRN, Emanuel as Puff 29 Starting Medical on [facility] Branch 02/17/23 at 0525, Until Discontinu ed, Routine, Wheezing, Shortness of Breath acetaminoph Yes 650mg 650 mg, Un jerrod en 02-17 Oral, ity of (TYLENOL) 09:45: Q6HPRN, [place] tablet 650 32 Starting Medic al mg on [facility] 02/17/23 at 0445, Until Discontinu ed, Routine, Pain (scale 1-3) MULTIVIT 2022- No Take by Univ ers &MINERALS/F 5-25 05-25 mouth. ity o f ERROUS FUM 08:00: 00:00 [place] (MULTI 47 :00 Medical VITAMIN Branch ORAL) MULTIVIT 2022- No Take by Unive rs &MINERALS/F 5-25 05-25 mouth. ity o f ERROUS FUM 08:00: 00:00 [place] (MULTI 47 :00 Medical VITAMIN Branch ORAL) MULTIVIT 2022- No Take by Unive rs &MINERALS/F 5-25 05-25 mouth. ity o f ERROUS FUM 08:00: 00:00 [place] (MULTI 47 :00 Medical VITAMIN Branch ORAL) MULTIVIT 2022- No Take by Unive rs &MINERALS/F 5-25 05-25 mouth. ity o f ERROUS FUM 08:00: 00:00 [place] (MULTI 47 :00 Medical VITAMIN Branch ORAL) MULTIVIT 2022- No Take by Unive rs &MINERALS/F 5-25 05-25 mouth. ity o f ERROUS FUM 08:00: 00:00 [place] (MULTI 47 :00 Medical VITAMIN Branch ORAL) MULTIVIT 2022- No Take by Unive rs &MINERALS/F 5-25 05-25 mouth. ity o f ERROUS FUM 08:00: 00:00 [place] (MULTI 47 :00 Medical VITAMIN Branch ORAL) MULTIVIT 2022- No Take by Unive rs &MINERALS/F 5-25 05-25 mouth. ity o f ERROUS FUM 08:00: 00:00 [place] (MULTI 47 :00 Medical VITAMIN Branch ORAL) MULTIVIT 2022- No Take by Unive rs &MINERALS/F 5-25 05-25 mouth. ity o f ERROUS FUM 08:00: 00:00 [place] (MULTI 47 :00 Medical VITAMIN Branch ORAL) MULTIVIT 2022- No Take by Unive rs &MINERALS/F 5-25 05-25 mouth. ity o f ERROUS FUM 08:00: 00:00 [place] (MULTI 47 :00 Medical VITAMIN Branch ORAL) MULTIVIT 2022- No Take by Unive rs &MINERALS/F 5-25 05-25 mouth. ity o f ERROUS FUM 08:00: 00:00 [place] (MULTI 47 :00 Medical VITAMIN Branch ORAL) MULTIVIT 2022- No Take by Unive rs &MINERALS/F 5-25 05-25 mouth. ity o f ERROUS FUM 08:00: 00:00 [place] (MULTI 47 :00 Medical VITAMIN Branch ORAL) MULTIVIT 2022- No Take by Unive rs &MINERALS/F 5-25 05-25 mouth. ity o f ERROUS FUM 08:00: 00:00 [place] (MULTI 47 :00 Medical VITAMIN Branch ORAL) MULTIVIT 2022- No Take by Unive rs &MINERALS/F 5-25 05-25 mouth. ity o f ERROUS FUM 08:00: 00:00 [place] (MULTI 47 :00 Medical VITAMIN Branch ORAL) MULTIVIT 2022- No Take by Unive rs &MINERALS/F 5-25 05-25 mouth. ity o f ERROUS FUM 08:00: 00:00 [place] (MULTI 47 :00 Medical VITAMIN Branch ORAL) MULTIVIT 2022- No Take by Unive rs &MINERALS/F 5-25 05-25 mouth. ity o f ERROUS FUM 08:00: 00:00 [place] (MULTI 47 :00 Medical VITAMIN Branch ORAL) MULTIVIT 2022- No Take by Unive rs &MINERALS/F 5-25 05-25 mouth. ity o f ERROUS FUM 08:00: 00:00 [place] (MULTI 47 :00 Medical VITAMIN Branch ORAL) MULTIVIT 2022- No Take by Unive rs &MINERALS/F 5-25 05-25 mouth. ity o f ERROUS FUM 08:00: 00:00 [place] (MULTI 47 :00 Medical VITAMIN Branch ORAL) MULTIVIT 2022- No Take by Unive rs &MINERALS/F 5-25 05-25 mouth. ity o f ERROUS FUM 08:00: 00:00 [place] (MULTI 47 :00 Medical VITAMIN Branch ORAL) MULTIVIT 2022- No Take by Unive rs &MINERALS/F 5-25 05-25 mouth. ity o f ERROUS FUM 08:00: 00:00 [place] (MULTI 47 :00 Medical VITAMIN Branch ORAL) MULTIVIT 2022- No Take by Unive rs &MINERALS/F 5-25 05-25 mouth. ity o f ERROUS FUM 08:00: 00:00 [place] (MULTI 47 :00 Medical VITAMIN Branch ORAL) MULTIVIT 0 2022- No Take by Unive rs &MINERALS/F 5-25 05-25 mouth. ity o f ERROUS FUM 08:00: 00:00 [place] (MULTI 47 :00 Medical VITAMIN Branch ORAL) MULTIVIT 0 2022- No Take by Unive rs &MINERALS/F 5-25 05-25 mouth. ity o f ERROUS FUM 08:00: 00:00 [place] (MULTI 47 :00 Medical VITAMIN Branch ORAL) MULTIVIT 0 2022- No Take by Unive rs &MINERALS/F 5-25 05-25 mouth. ity o f ERROUS FUM 08:00: 00:00 [place] (MULTI 47 :00 Medical VITAMIN Branch ORAL) MULTIVIT 0 2022- No Take by Unive rs &MINERALS/F 5-25 05-25 mouth. ity o f ERROUS FUM 08:00: 00:00 [place] (MULTI 47 :00 Medical VITAMIN Branch ORAL) MULTIVIT 0 2022- No Take by Unive rs &MINERALS/F 5-25 05-25 mouth. ity o f ERROUS FUM 08:00: 00:00 [place] (MULTI 47 :00 Medical VITAMIN Branch ORAL) MULTIVIT 0 2022- No Take by Unive rs &MINERALS/F 5-25 05-25 mouth. ity o f ERROUS FUM 08:00: 00:00 [place] (MULTI 47 :00 Medical VITAMIN Branch ORAL) METHYLCELLU 2022-0 2022- No Unive rs LOSE (FIBER 5-25 05-25 ity of THERAPY 08:00: 00:00 [facility]) 10 :00 Medical Branch METHYLCELLU 3-0 2022- No Unive rs LOSE (FIBER 5-25 05-25 ity of THERAPY 08:00: 00:00 [facility]) 10 :00 Medical Branch METHYLCELLU 2023-0 2022- No Unive rs LOSE (FIBER 5-25 05-25 ity of THERAPY 08:00: 00:00 [facility]) 10 :00 Medical Branch METHYLCELLU 2023-0 2023- No Unive rs LOSE (FIBER 5-25 05-25 ity of THERAPY 08:00: 00:00 [facility]) 10 :00 Medical Branch METHYLCELLU 2023-0 2023- No Unive rs LOSE (FIBER 5-25 05-25 ity of THERAPY 08:00: 00:00 [facility]) 10 :00 Medical Branch METHYLCELLU 2023-0 2023- No Unive rs LOSE (FIBER 5-25 05-25 ity of THERAPY 08:00: 00:00 [facility]) 10 :00 Medical Branch METHYLCELLU 2023-0 2023- No Unive rs LOSE (FIBER 5-25 05-25 ity of THERAPY 08:00: 00:00 [facility]) 10 :00 Medical Branch METHYLCELLU 2023-0 2023- No Unive rs LOSE (FIBER 5-25 05-25 ity of THERAPY 08:00: 00:00 [facility]) 10 :00 Medical Branch METHYLCELLU 2023-0 2023- No Unive rs LOSE (FIBER 5-25 05-25 ity of THERAPY 08:00: 00:00 [facility]) 10 :00 Medical Branch METHYLCELLU 2023-0 2023- No Unive rs LOSE (FIBER 5-25 05-25 ity of THERAPY 08:00: 00:00 [facility]) 10 :00 Medical Branch METHYLCELLU 2023-0 2023- No Unive rs LOSE (FIBER 5-25 05-25 ity of THERAPY 08:00: 00:00 [facility]) 10 :00 Medical Branch METHYLCELLU 2023-0 2023- No Unive rs LOSE (FIBER 5-25 05-25 ity of THERAPY 08:00: 00:00 [facility]) 10 :00 Medical Branch METHYLCELLU 2023-0 2023- No Unive rs LOSE (FIBER 5-25 05-25 ity of THERAPY 08:00: 00:00 [facility]) 10 :00 Medical Branch METHYLCELLU 2023-0 2023- No Unive rs LOSE (FIBER 5-25 05-25 ity of THERAPY 08:00: 00:00 [facility]) 10 :00 Medical Branch METHYLCELLU 2023-0 2023- No Unive rs LOSE (FIBER 5-25 05-25 ity of THERAPY 08:00: 00:00 [facility]) 10 :00 Medical Branch METHYLCELLU 2022-0 2022- No Unive rs LOSE (FIBER 5-25 05-25 ity of THERAPY 08:00: 00:00 [facility]) 10 :00 Medical Branch METHYLCELLU 2022-0 2022- No Unive rs LOSE (FIBER 5-25 05-25 ity of THERAPY 08:00: 00:00 [facility]) 10 :00 Medical Branch METHYLCELLU 2022-0 2022- No Unive rs LOSE (FIBER 5-25 05-25 ity of THERAPY 08:00: 00:00 [facility]) 10 :00 Medical Branch METHYLCELLU 2022-0 2022- No Unive rs LOSE (FIBER 5-25 05-25 ity of THERAPY 08:00: 00:00 [facility]) 10 :00 Medical Branch METHYLCELLU 2022-0 2022- No Unive rs LOSE (FIBER 5-25 05-25 ity of THERAPY 08:00: 00:00 [facility]) 10 :00 Medical Branch METHYLCELLU 2022-0 2022- No Unive rs LOSE (FIBER 5-25 05-25 ity of THERAPY 08:00: 00:00 [facility]) 10 :00 Medical Branch METHYLCELLU 2022-0 2022- No Unive rs LOSE (FIBER 5-25 05-25 ity of THERAPY 08:00: 00:00 [facility]) 10 :00 Medical Branch METHYLCELLU 2022-0 2022- No Unive rs LOSE (FIBER 5-25 05-25 ity of THERAPY 08:00: 00:00 [facility]) 10 :00 Medical Branch METHYLCELLU 2022-0 2022- No Unive rs LOSE (FIBER 5-25 05-25 ity of THERAPY 08:00: 00:00 [facility]) 10 :00 Medical Branch METHYLCELLU 2022-0 2022- No Unive rs LOSE (FIBER 5-25 05-25 ity of THERAPY 08:00: 00:00 [facility]) 10 :00 Medical Branch METHYLCELLU 2022-0 2022- No Unive rs LOSE (FIBER 5-25 05-25 ity of THERAPY 08:00: 00:00 [facility]) 10 :00 Medical Branch DOCUSATE 2022- No Take by Unive rs SODIUM 5-25 05-25 mouth. ity of (COLACE 07:58: 00:00 [place] ORAL) 29 :00 Medical Branch DOCUSATE 2022- No Take by Unive rs SODIUM 5-25 05-25 mouth. ity of (COLACE 07:58: 00:00 [place] ORAL) 29 :00 Medical Branch DOCUSATE 2022- No Take by Unive rs SODIUM 5-25 05-25 mouth. ity of (COLACE 07:58: 00:00 [place] ORAL) 29 :00 Medical Branch DOCUSATE 2022- No Take by Unive rs SODIUM 5-25 05-25 mouth. ity of (COLACE 07:58: 00:00 [place] ORAL) 29 :00 Medical Branch DOCUSATE 2022- No Take by Unive rs SODIUM 5-25 05-25 mouth. ity of (COLACE 07:58: 00:00 [place] ORAL) 29 :00 Medical Branch DOCUSATE 2022- No Take by Unive rs SODIUM 5-25 05-25 mouth. ity of (COLACE 07:58: 00:00 [place] ORAL) 29 :00 Medical Branch DOCUSATE 2022- No Take by Unive rs SODIUM 5-25 05-25 mouth. ity of (COLACE 07:58: 00:00 [place] ORAL) 29 :00 Medical Branch DOCUSATE 2022- No Take by Unive rs SODIUM 5-25 05-25 mouth. ity of (COLACE 07:58: 00:00 [place] ORAL) 29 :00 Medical Branch DOCUSATE 2022- No Take by Unive rs SODIUM 5-25 05-25 mouth. ity of (COLACE 07:58: 00:00 [place] ORAL) 29 :00 Medical Branch DOCUSATE 2022- No Take by Unive rs SODIUM 5-25 05-25 mouth. ity of (COLACE 07:58: 00:00 [place] ORAL) 29 :00 Medical Branch DOCUSATE 2022- No Take by Unive rs SODIUM 5-25 05-25 mouth. ity of (COLACE 07:58: 00:00 [place] ORAL) 29 :00 Medical Branch DOCUSATE 2022- No Take by Unive rs SODIUM 5-25 05-25 mouth. ity of (COLACE 07:58: 00:00 [place] ORAL) 29 :00 Medical Branch DOCUSATE 2022- No Take by Unive rs SODIUM 5-25 05-25 mouth. ity of (COLACE 07:58: 00:00 [place] ORAL) 29 :00 Medical Branch DOCUSATE 2022- No Take by Unive rs SODIUM 5-25 05-25 mouth. ity of (COLACE 07:58: 00:00 [place] ORAL) 29 :00 Medical Branch DOCUSATE 2022- No Take by Unive rs SODIUM 5-25 05-25 mouth. ity of (COLACE 07:58: 00:00 [place] ORAL) 29 :00 Medical Branch DOCUSATE 2022- No Take by Unive rs SODIUM 5-25 05-25 mouth. ity of (COLACE 07:58: 00:00 [place] ORAL) 29 :00 Medical Branch DOCUSATE 2022- No Take by Unive rs SODIUM 5-25 05-25 mouth. ity of (COLACE 07:58: 00:00 [place] ORAL) 29 :00 Medical Branch DOCUSATE 2022- No Take by Unive rs SODIUM 5-25 05-25 mouth. ity of (COLACE 07:58: 00:00 [place] ORAL) 29 :00 Medical Branch DOCUSATE 2022- No Take by Unive rs SODIUM 5-25 05-25 mouth. ity of (COLACE 07:58: 00:00 [place] ORAL) 29 :00 Medical Branch DOCUSATE 2022- No Take by Unive rs SODIUM 5-25 05-25 mouth. ity of (COLACE 07:58: 00:00 [place] ORAL) 29 :00 Medical Branch DOCUSATE 2022- No Take by Unive rs SODIUM 5-25 05-25 mouth. ity of (COLACE 07:58: 00:00 [place] ORAL) 29 :00 Medical Branch DOCUSATE 2022- No Take by Unive rs SODIUM 5-25 05-25 mouth. ity of (COLACE 07:58: 00:00 [place] ORAL) 29 :00 Medical Branch DOCUSATE 2022- No Take by Unive rs SODIUM 5-25 05-25 mouth. ity of (COLACE 07:58: 00:00 [place] ORAL) 29 :00 Medical Branch DOCUSATE 2022- No Take by Unive rs SODIUM 5-25 05-25 mouth. ity of (COLACE 07:58: 00:00 [place] ORAL) 29 :00 Medical Branch DOCUSATE 2022- No Take by Unive rs SODIUM 5-25 05-25 mouth. ity of (COLACE 07:58: 00:00 [place] ORAL) 29 :00 Medical Branch DOCUSATE 2022- No Take by Unive rs SODIUM 5-25 05-25 mouth. ity of (COLACE 07:58: 00:00 [place] ORAL) 29 :00 Medical Branch CRANBERRY 2022- No Take by Univ ers FRUIT 5-25 05-25 mouth ity of EXTRACT 07:57: 00:00 daily. [place] (CRANBERRY 03 :00 Medical ORAL) Branch CRANBERRY 2022- No Take by Univ ers FRUIT 5-25 05-25 mouth ity of EXTRACT 07:57: 00:00 daily. [place] (CRANBERRY 03 :00 Medical ORAL) Branch CRANBERRY 2022- No Take by Univ ers FRUIT 5-25 05-25 mouth ity of EXTRACT 07:57: 00:00 daily. [place] (CRANBERRY 03 :00 Medical ORAL) Branch CRANBERRY 2022- No Take by Univ ers FRUIT 5-25 05-25 mouth ity of EXTRACT 07:57: 00:00 daily. [place] (CRANBERRY 03 :00 Medical ORAL) Branch CRANBERRY 2022- No Take by Univ ers FRUIT 5-25 05-25 mouth ity of EXTRACT 07:57: 00:00 daily. [place] (CRANBERRY 03 :00 Medical ORAL) Branch CRANBERRY 2022- No Take by Univ ers FRUIT 5-25 05-25 mouth ity of EXTRACT 07:57: 00:00 daily. [place] (CRANBERRY 03 :00 Medical ORAL) Branch CRANBERRY 2022- No Take by Univ ers FRUIT 5-25 05-25 mouth ity of EXTRACT 07:57: 00:00 daily. [place] (CRANBERRY 03 :00 Medical ORAL) Branch CRANBERRY 2022- No Take by Univ ers FRUIT 5-25 05-25 mouth ity of EXTRACT 07:57: 00:00 daily. [place] (CRANBERRY 03 :00 Medical ORAL) Branch CRANBERRY 2022- No Take by Univ ers FRUIT 5-25 05-25 mouth ity of EXTRACT 07:57: 00:00 daily. [place] (CRANBERRY 03 :00 Medical ORAL) Branch CRANBERRY 2022- No Take by Univ ers FRUIT 5-25 05-25 mouth ity of EXTRACT 07:57: 00:00 daily. [place] (CRANBERRY 03 :00 Medical ORAL) Branch CRANBERRY 2022- No Take by Univ ers FRUIT 5-25 05-25 mouth ity of EXTRACT 07:57: 00:00 daily. [place] (CRANBERRY 03 :00 Medical ORAL) Branch CRANBERRY 2022- No Take by Univ ers FRUIT 5-25 05-25 mouth ity of EXTRACT 07:57: 00:00 daily. [place] (CRANBERRY 03 :00 Medical ORAL) Branch CRANBERRY 2022- No Take by Univ ers FRUIT 5-25 05-25 mouth ity of EXTRACT 07:57: 00:00 daily. [place] (CRANBERRY 03 :00 Medical ORAL) Branch CRANBERRY 2022- No Take by Univ ers FRUIT 5-25 05-25 mouth ity of EXTRACT 07:57: 00:00 daily. [place] (CRANBERRY 03 :00 Medical ORAL) Branch CRANBERRY 2022- No Take by Univ ers FRUIT 5-25 05-25 mouth ity of EXTRACT 07:57: 00:00 daily. [place] (CRANBERRY 03 :00 Medical ORAL) Branch CRANBERRY 2022- No Take by Univ ers FRUIT 5-25 05-25 mouth ity of EXTRACT 07:57: 00:00 daily. [place] (CRANBERRY 03 :00 Medical ORAL) Branch CRANBERRY 2022- No Take by Univ ers FRUIT 5-25 05-25 mouth ity of EXTRACT 07:57: 00:00 daily. [place] (CRANBERRY 03 :00 Medical ORAL) Branch CRANBERRY 2022- No Take by Univ ers FRUIT 5-25 05-25 mouth ity of EXTRACT 07:57: 00:00 daily. [place] (CRANBERRY 03 :00 Medical ORAL) Branch CRANBERRY 2022- No Take by [facility] ers FRUIT 5-25 05-25 mouth ity of EXTRACT 07:57: 00:00 daily. [place] (CRANBERRY 03 :00 Medical ORAL) Branch CRANBERRY 2022- No Take by [facility] ers FRUIT 5-25 05-25 mouth ity of EXTRACT 07:57: 00:00 daily. [place] (CRANBERRY 03 :00 Medical ORAL) Chromo CRANBERRY 2022- No Take by [facility] ers FRUIT 5-25 05-25 mouth ity of EXTRACT 07:57: 00:00 daily. [place] (CRANBERRY 03 :00 Medical ORAL) Branch CRANBERRY 2022- No Take by [facility] ers FRUIT 5-25 05-25 mouth ity of EXTRACT 07:57: 00:00 daily. [place] (CRANBERRY 03 :00 Medical ORAL) Chromo CRANBERRY 2022- No Take by [facility] ers FRUIT 5-25 05-25 mouth ity of EXTRACT 07:57: 00:00 daily. [place] (CRANBERRY 03 :00 Medical ORAL) Chromo CRANBERRY 2022- No Take by [facility] ers FRUIT 525 05-25 mouth ity of EXTRACT 07:57: 00:00 daily. [place] (CRANBERRY 03 :00 Medical ORAL) Chromo CRANBERRY 2022- No Take by [facility] ers FRUIT 5-25 05-25 mouth ity of EXTRACT 07:57: 00:00 daily. [place] (CRANBERRY 03 :00 Medical ORAL) Chromo CRANBERRY 2022- No Take by [facility] ers FRUIT 5-25 05-25 mouth ity of EXTRACT 07:57: 00:00 daily. [place] (CRANBERRY 03 :00 Medical ORAL) Chromo morpHINE (2 Yes 2mg 2 mg, Slow Univers mg/mL) 02-17 IV Push, ity of injection 2 07:36: Q4HPRN, Emanuel as mg 16 Starting Medical on [facility] 02/17/23 at 0236, Until Discontinu ed, Routine, Chest pain azithromyci 2022- No 500mg 500 mg, IV Univers n 02-17 05-25 Piggyback, ity of (ZITHROMAX) 06:30: 09:11 [place]CE, 1 [place] mg in 00 :00 dose, On Medica l NaCl 0.9% [facility] (NS) 250 mL 02/17/23 at VIAL-MATE 0130, IV Administer piggyback over 60 Minutes, 250 mL
R enzo for Anti-Infec tive: Empiric Therapy for Suspected Infection< br>Empiric Therapy Site: Respirator y
Durat ion of therapy: 72 hours ondansetron 2022-0 Yes 4mg Take [address] [facility] (ZOFRAN-ODT 5-15 by mouth Luke [facility] ) 4 MG 06:10: every 8 Medical disintegrat 24 (eight) Cente r ing tablet hours as needed for Nausea. sucralfate 2022-0 Yes 1g Q.5D Take [address] [facility] (CARAFATE) 5-15 by mouth 2 [facility] [facility] 1 gram 06:10: (two) Medical tablet 24 times Center daily. pantoprazol 0 Yes 40mg Take [address] [facility] e 5-15 by mouth 2 [facility] (PROTONIX) 06:10: (two) Medica l 20 MG 24 times Center tablet daily with breakfast and dinner. montelukast 0 Yes 10mg Take [address] [facility] (SINGULAIR) 5-15 by mouth Luke s 10 mg 06:10: in the Medical tablet 24 morning. Center cyanocobala 0 Yes 1000ug Inject [facility] min 5-15 1,000 mcg [facility] (VITAMIN 06:10: intramuscu Med ical B-12) 1,000 24 larly once Ce nter mcg/mL every 2 injection weeks. levothyroxi 0 Yes 50ug Take [address] [facility] ne 5-15 mcg by [facility] (SYNTHROID, 06:10: mouth Medic al LEVOTHROID) 24 Every Center 50 MCG morning on tablet an empty stomach. fluticasone 2022-0 Yes 2{puff} Inhale [address] [facility] propion-melyssa 5-15 puffs by Luke s meteroL 06:10: mouth via Medic al (ADVAIR) 24 inhaler Center 100-50 every 12 mcg/dose (twelve) diskus hours. inhaler ascorbic 2022-0 Yes 1000mg QD Take 1,[address] acid, 5-15 mg by [facility] vitamin C, 06:10: mouth Medica l (ascorbic 24 daily. Center acid with derrell hips) 1000 MG tablet citalopram Yes 40mg QD Take [address] (CeleXA) 40 5-15 by mouth Luke s MG tablet 06:10: daily. Medica l 24 Center albuterol Yes 2{puff} Inhale [address] HFA 5-15 puffs by [facility] (VENTOLIN 06:10: mouth via Med ical HFA) 90 24 inhaler Center mcg/actuati every 4 on inhaler (four) hours as needed for Wheezing. tamsulosin Yes .4mg QD Take 1 [facility] (FLOMAX) 5-13 capsule [facility] 0.4 mg Cap 00:00: (0.4 mg Medi cipriano 24 hr 00 total) by Center capsule mouth in the morning. folic acid 2023- No 1mg QD Take [address] [facility] (FOLVITE) 1 5-13 05-12 tablet (1 Aiyana kes MG tablet 00:00: 23:59 mg total) Me dical 00 :00 by mouth Center in the morning. predniSONE 2023- No 15mg QD Take [address] [facility] (DELTASONE) 5-13 05-12 tablets Luke s 5 MG tablet 00:00: 23:59 (15 mg Med ical 00 :00 total) by Center mouth in the morning. . atovaquone 2023- No 1500mg QD Take [address] (MEPRON) 5-13 05-12 mLs (1,500 [facility] 750 mg/5 mL 00:00: 23:59 mg total) Medical suspension 00 :00 by mouth Cente r in the morning. polyethylen 2022- No 17g Q.5D Take [address] [facility] e glycol 5-12 05-12 by mouth 2 [facility] (GLYCOLAX) 14:31: 00:00 (two) Medic al 17 gram 25 :00 times Center packet daily. lactulose 2022- No 30g Q.5D Take [address] [facility] [address] [facility] (CHRONULAC) 5-12 05-12 by mouth 2 L ukes 10 gram/15 14:31: 00:00 (two) Medic al mL (15 mL) 25 :00 times Center solution daily. busPIRone 2022- No 20mg Q.5D Take [address] (BUSPAR) 10 5-12 05-12 by mouth 2 L ukes MG tablet 14:: 00:00 (two) Medica l 25 :00 times Center daily. dilTIAZem 2022- No 120mg Q.5D Take [address] (DILACOR 5-12 05-12 mg by [facility] XR) 120 MG 14:31: 00:00 mouth 2 Med ical 24 hr 25 :00 (two) Center capsule times daily. rosuvastati 2022- No 10mg QD Take [address] [facility] (CRESTOR) 5- 05-12 by mouth Olga es 10 MG 14:: 00:00 daily. Medical tablet 25 :00 Center losartan 2022- No 50mg Take [address] [facility] (COZAAR) 50 5- 05-12 by mouth 2 [facility] MG tablet 14:: 00:00 (two) Medica l 25 :00 times Center daily before meals. diphenoxyla 2022- No 1{tbl} Take [address] te-atropine 5- 05-12 tablet by Aiyana luther (LOMOTIL) 14:: 00:00 mouth 4 Medi cipriano 2.5-0.025 25 :00 (four) Center mg per times tablet daily as needed for Diarrhea. Max Daily Amount: 4 tablets metFORMIN 2022- No 500mg Take [address] [facility] (GLUCOPHAGE 5-12 05-12 tablet [facility] ) 500 MG 14:: 00:00 (500 mg Medic al tablet 25 :00 total) by Center mouth 2 (two) times daily with breakfast and dinner. mirabegron 2022- No 50mg QD Take [address] [facility] (MYRBETRIQ) 5-12 05-12 tablet (50 [facility] 50 mg Tb24 14:31: 00:00 mg total) M edical ER tablet 25 :00 by mouth Center in the morning. pregabalin 2022- No 150mg [id number] Take [address] [facility] (LYRICA) 5-12 05-12 [id number] capsule [facility] 150 MG 14:31: 00:00 3D (150 mg Medical capsule 25 :00 total) by Center mouth in the morning and 1 capsule (150 mg total) at noon and 1 capsule (150 mg total) in the evening. Morning, noon, evening. Max Daily Amount: 450 mg. rimegepant 2022-0 2022- No Take by [facility] (Nurtec 02-04 mouth [facility] ODT) 75 mg 14:25: 00:00 every Medic al TbDL 19 :00 other day. [place] metoclopram 2022-0 2022- No 10mg Take [address] [facility] dariela HCl 02-04 by mouth 4 [facility] (REGLAN) 10 13:58: 00:00 (four) Med ical MG tablet 42 :00 times Center daily before meals and nightly. cefdinir 2022-0 2022- No 300mg Q.5D Take [facility] (OMN[facility]04 [facility] 300 MG 13:57: 00:00 (300 mg Medical capsule 24 :00 total) by Center mouth in the morning and 1 capsule (300 mg total) before bedtime. semaglutide 2022-0 2022- No Q7D Inject [facility] (Ozempic) 02-04 subcutaneo Olga es 0.25 mg or 13:52: 00:00 usly once M edical 0.5 mg(2 27 :00 a week. Center mg/1.5 mL) PnIj budesonide- 2022-0 2022- No Q.5D Inhale by [facility] St glycopyr-fo 02-04 mouth via Aiyana kes rmoterol 13:51: 00:00 inhaler 2 Med ical (Breztri 56 :00 (two) [facility]) times 160-9-4.8 daily mcg/actuati Rinse on HFAA mouth after. ciprofloxac 2022-0 Yes 500mg Q24H Take [address] [facility] HCl - tablet [facility] (CIPRO) 500 00:00: (500 mg Med ical MG tablet 00 total) by Cente r mouth in the morning. mupirocin 2022-0 Yes Wound care [facility] (BACTROBAN) 02-04 to digits [place] 2 % 00:00: #1-10, Medical ointment 00 daily. [place] busPIRone Yes 5mg Q.5D Take 0.[address] [facility] (BUSPAR) 10 5-12 tablets (5 Aiyana kes MG tablet 00:00: mg total) Med ical 00 by mouth Center in the morning and 0.5 tablets (5 mg total) before bedtime. povidone-io Yes Daily [facility]-12 topically [facility] (BETADINE) 00:00: over toe Med ical 10 % 00 wounds Center external bilaterall solution y. zinc Yes Topically [facility] oxide-leticia 5-12 as needed. Aiyana kes latum 00:00: Cleanse Medical (CRITIC-AID [address] ) 20-51 % with soap Pste and water. topical Apply paste thick critic aid cream, leave open to air, every mariaa care.. diphenoxyla Yes 1{tbl} Q.25D Take [address] te-atropine 5-12 tablet by [place] (LOMOTIL) 00:00: mouth in Medi cipriano 2.5-0.025 00 the Center mg per morning tablet and 1 tablet at noon and 1 tablet in the evening and 1 tablet before bedtime. Max Daily Amount: 4 tablets. polycarboph 2023- No 1250mg [id number] Take [address] [facility] [place] 02-04-11 [id number] tablets [facility] (FIBERCON) 00:00: 23:59 3D (1,250 mg M edical 625 mg 00 :00 total) by Center tablet mouth in the morning and 2 tablets (1,250 mg total) at noon and 2 tablets (1,250 mg total) in the evening. dicyclomine 0 2023- No 10mg Q.25D Take [address] [facility] [address] [facility] (BENTYL) 10 02-04- capsule [facility] MG capsule 00:00: 23:59 (10 mg Medi cipriano 00 :00 total) by Center mouth in the morning and 1 capsule (10 mg total) at noon and 1 capsule (10 mg total) in the evening and 1 capsule (10 mg total) before bedtime. gabapentin 0 2023- No 300mg QD Take [address] [facility] (NEURONTIN) 5-12 05-11 capsule [facility] 300 MG 00:00: 23:59 (300 mg Medical capsule 00 :00 total) by Center mouth nightly. ipratropium 2023- No .5mg Take 2.[address] (ATROVENT) 02-04 mLs (0.5 [facility] 0.02 % 00:00: 23:59 mg total) Medic al nebulizer 00 :00 by Center solution nebulizati on every 6 (six) hours as needed. insulin 2023- No 0U Inject [facility] lispro 02-04 0-12 Units [facility] (HumaLOG) 00:00: 23:59 subcutaneo M edical 100 unit/mL 00 :00 usly 3 Center injection (three) times daily before meals. topiramate 2023- No 25mg Take [address] [facility] (TOPAMAX) 02-04 tablet (25 [place] 25 MG 00:00: 23:59 mg total) Medica l tablet 00 :00 by mouth Center every 12 (twelve) hours. aspirin 81 2023- No 81mg QD Take [address] [facility] MG EC 02-04 tablet (81 [facility] tablet 00:00: 23:59 mg total) Medic al 00 :00 by mouth Center in the morning. acetaminoph 2023- No 650mg Take [address] [facility] [address] [facility] en 02-04 tablets [facility] (TYLENOL) 00:00: 23:59 (650 mg Medi cipriano 325 MG 00 :00 total) by Center tablet mouth every 6 (six) hours as needed for up to 360 days. loperamide 2022- No 6mg Take [address] [facility] (IMODIUM) 2 02-04- capsules [place] mg capsule 00:00: 23:59 (6 mg Medic al 00 :00 total) by Center mouth every 6 (six) hours for 10 days. loperamide 2022- No 2mg Take [address] [facility] (IMODIUM) 2 02-04 capsule (2 [facility] mg capsule 00:00: 23:59 mg total) M edical 00 :00 by mouth 4 Center (four) times daily as needed for Diarrhea for up to 10 days. oxyCODONE 2022- No 5mg Take 1 [facility] (ROXICODONE 5-12 05-19 tablet (5 Aiyana kes ) 5 MG 00:00: 23:59 mg total) Medic al immediate 00 :00 by mouth Center release every 6 tablet (six) hours as needed for up to 7 days . Max Daily Amount: 20 mg LEVOTHYROXI 0 Yes [id number] TAKE 1 [facility] 50 mcg 4-10 TABLET BY ity o f tablet 00:00: MOUTH ONCE [place] 00 DAILY IN [facility] MORNING LEVOTHYROXI 0 Yes [id number] TAKE 1 [facility] [place] 50 mcg 4-10 TABLET BY ity o f tablet 00:00: MOUTH ONCE [place] 00 DAILY IN [facility] MORNING LEVOTHYROXI Yes [id number] TAKE 1 [facility] [place] 50 mcg 4-10 TABLET BY ity o f tablet 00:00: MOUTH ONCE [place] 00 DAILY IN [facility] MORNING LEVOTHYROXI Yes [id number] TAKE 1 [facility] [place] 50 mcg 4-10 TABLET BY ity o f tablet 00:00: MOUTH ONCE [place] 00 DAILY IN [facility] MORNING LEVOTHYROXI 0 Yes [id number] TAKE 1 [facility] [place] 50 mcg 4-10 TABLET BY ity o f tablet 00:00: MOUTH ONCE [place] 00 DAILY IN [facility] MORNING LEVOTHYROXI Yes [id number] TAKE 1 [facility] [place] 50 mcg 4-10 TABLET BY ity o f tablet 00:00: MOUTH ONCE [place] 00 DAILY IN [facility] MORNING LEVOTHYROXI Yes [id number] TAKE 1 [facility] 50 mcg 4-10 TABLET BY ity o f tablet 00:00: MOUTH ONCE [place] 00 DAILY IN [facility] MORNING LEVOTHYROXI 0 Yes [id number] TAKE 1 [facility] 50 mcg 4-10 TABLET BY ity o f tablet 00:00: MOUTH ONCE [place] 00 DAILY IN [facility] MORNING LEVOTHYROXI Yes [id number] TAKE 1 [facility] 50 mcg 4-10 TABLET BY ity o f tablet 00:00: MOUTH ONCE [place] 00 DAILY IN [facility] MORNING topiramate 0 2022- No 50mg Q.5D Take [address] [facility] (TOPAMAX) 4-03 04-03 by mouth 2 [place] 25 MG 05:58: 00:00 (two) Medical tablet 12 :00 times Center daily. SUMAtriptan 2022- No 50mg Take [address] [facility] (IMITREX) 12-27 by mouth [facility] 50 MG 05:57: 00:00 as needed Medica l tablet 54 :00 for Center Headaches or Migraine. pantoprazol 2022- No [id number] Take 1 [facility] e 40 mg EC 12-21 tablet by [facility] tablet 00:00: 04:59 mouth once [place] 00 :00 daily Medical Branch pantoprazol 2022- No [id number] Take 1 [facility] e 40 mg EC 12-21 tablet by [facility] of tablet 00:00: 04:59 mouth once [place] 00 :00 daily Medical Branch pantoprazol 2022- No [id number] Take 1 [facility] e 40 mg EC 12-21 tablet by [facility] of tablet 00:00: 04:59 mouth once [place] 00 :00 daily Medical Branch PREGABALIN 2022-0 Yes [id number] TAKE 1 [facility] 150 mg 3-07 CAPSULE BY ity of capsule 00:00: MOUTH [place] 00 THREE Medical TIMES Branch DAILY PREGABALIN 2022-0 Yes [id number] TAKE 1 [facility] 150 mg 3-07 CAPSULE BY ity of capsule 00:00: MOUTH 00 THREE Medical TIMES Branch DAILY PREGABALIN 3-0 Yes [id number] TAKE 1 [facility] 150 mg 3-07 CAPSULE BY ity of capsule 00:00: MOUTH THREE Medical TIMES Branch DAILY PREGABALIN 3-0 Yes [id number] TAKE 1 [facility] 150 mg 3-07 CAPSULE BY ity of capsule 00:00: MOUTH [place] 00 THREE Medical TIMES Branch DAILY PREGABALIN 3-0 Yes [id number] TAKE 1 [facility] 150 mg 3-07 CAPSULE BY ity of capsule 00:00: MOUTH [place] 00 THREE Medical TIMES Branch DAILY PREGABALIN 2023-0 Yes [id number] TAKE 1 [facility] 150 mg 3-07 CAPSULE BY ity of capsule 00:00: MOUTH [place] THREE Medical TIMES Branch DAILY PREGABALIN 3-0 Yes [id number] TAKE 1 [facility] 150 mg 3-07 CAPSULE BY ity of capsule 00:00: MOUTH [place] THREE Medical TIMES Branch DAILY PREGABALIN 3-0 Yes [id number] TAKE 1 [facility] 150 mg 3-07 CAPSULE BY ity of capsule 00:00: MOUTH [place] 00 THREE Medical TIMES Branch DAILY PREGABALIN 2023-0 Yes [id number] TAKE 1 [facility] 150 mg 3-07 CAPSULE BY ity of capsule 00:00: MOUTH [place] 00 THREE Medical TIMES Branch DAILY PREGABALIN 2023-0 Yes [id number] TAKE 1 [facility] 150 mg 3-07 CAPSULE BY ity of capsule 00:00: MOUTH [place] 00 THREE Medical TIMES Branch DAILY PREGABALIN 2023-0 Yes [id number] TAKE 1 [facility] 150 mg 3-07 CAPSULE BY ity of capsule 00:00: MOUTH [place] 00 THREE Medical TIMES Branch DAILY PREGABALIN 2023-0 Yes [id number] TAKE 1 [facility] 150 mg 3-07 CAPSULE BY ity of capsule 00:00: MOUTH [place] 00 THREE Medical TIMES Branch DAILY PREGABALIN 2023-0 Yes [id number] TAKE 1 [facility] 150 mg 3-07 CAPSULE BY ity of capsule 00:00: MOUTH [place] 00 THREE Medical TIMES Branch DAILY mirabegron 2023-0 Yes [id number] 50mg Take 1 [facility] (MYRBETRIQ) 2-22 tablet by ity of 50 mg 00:00: mouth in [place] tablet 00 the Medical morning. Branch mirabegron 2023-0 Yes [id number] 50mg Take 1 [facility] (MYRBETRIQ) 2-22 tablet by ity of 50 mg 00:00: mouth in [place] tablet 00 the Medical morning. Branch mirabegron 2023-0 Yes [id number] 50mg Take 1 [facility] (MYRBETRIQ) 2-22 tablet by ity of 50 mg 00:00: mouth in [place] tablet 00 the Medical morning. Branch mirabegron 2023-0 Yes [id number] 50mg Take 1 [facility] (MYRBETRIQ) 2-22 tablet by ity of 50 mg 00:00: mouth in [place] tablet 00 the Medical morning. Branch mirabegron 2023-0 Yes [id number] 50mg Take 1 [facility] (MYRBETRIQ) 2-22 tablet by ity of 50 mg 00:00: mouth in [place] tablet 00 the Medical morning. Branch mirabegron 2023-0 Yes [id number] 50mg Take 1 [facility] (MYRBETRIQ) 2-22 tablet by ity of 50 mg 00:00: mouth in [place] tablet 00 the Medical morning. Branch mirabegron 3-0 Yes [id number] 50mg Take 1 [facility] (MYRBETRIQ) 2-22 tablet by ity of 50 mg 00:00: mouth in [place] tablet 00 the Medical morning. Branch mirabegron 2022-0 Yes [id number] 50mg Take 1 [facility] (MYRBETRIQ) 2-22 tablet by ity of 50 mg 00:00: mouth in [place] tablet 00 the Medical morning. Branch mirabegron 3-0 Yes [id number] 50mg Take 1 [facility] (MYRBETRIQ) 2-22 tablet by ity of 50 mg 00:00: mouth in [place] tablet 00 the Medical morning. Branch mirabegron 2022-0 Yes [id number] 50mg Take 1 [facility] (MYRBETRIQ) 2-22 tablet by ity of 50 mg 00:00: mouth in [place] tablet 00 the Medical morning. Branch mirabegron 2022-0 3- No [id number] 50mg Take 1 [facility] (MYRBETRIQ) 2-22 05-25 tablet by it y of 50 mg 00:00: 00:00 mouth in [place] tablet 00 :00 the Medical morning. Branch CYANOCOBALA 2022-0 Yes [id number] INJECT 1 [facility] MIN 1,000 2-07 ML ity of mcg/mL 00:00: INTRAMUSCU [place] injection 00 LARLY Medical EVERY TWO Branch WEEKS semaglutide 2022-0 Yes [id number] Inject Univers (OZEMPIC) 2-07 0.25 mg ity of 0.25 mg or 00:00: under the [place] 0.5 mg(2 00 skin Medical mg/1.5 mL) weekly. Branch PnIj CYANOCOBALA 2022-0 Yes [id number] INJECT 1 [facility] MIN 1,000 2-07 ML ity of mcg/mL 00:00: INTRAMUSCU [place] injection 00 LARLY Medical EVERY TWO Branch WEEKS semaglutide 2022-0 Yes [id number] Inject [facility] (OZEMPIC) 2-07 0.25 mg ity of 0.25 mg or 00:00: under the [place] 0.5 mg(2 00 skin Medical mg/1.5 mL) weekly. Branch PnIj CYANOCOBALA 2022-0 Yes [id number] INJECT 1 [facility] MIN 1,000 2-07 ML ity of mcg/mL 00:00: INTRAMUSCU [place] injection 00 LARLY Medical EVERY TWO Branch WEEKS semaglutide 0 Yes [id number] Inject [facility] (OZEMPIC) 2-07 0.25 mg ity of 0.25 mg or 00:00: under the [place] 0.5 mg(2 00 skin Medical mg/1.5 mL) weekly. Branch PnIj CYANOCOBALA 0 Yes [id number] INJECT 1 [facility] MIN 1,000 2-07 ML ity of mcg/mL 00:00: INTRAMUSCU [place] injection 00 LARLY Medical EVERY TWO Branch WEEKS semaglutide Yes [id number] Inject [facility] (OZEMPIC) 2-07 0.25 mg ity of 0.25 mg or 00:00: under the [place] 0.5 mg(2 00 skin Medical mg/1.5 mL) weekly. Branch PnIj CYANOCOBALA Yes [id number] INJECT 1 [facility] MIN 1,000 2-07 ML ity of mcg/mL 00:00: INTRAMUSCU [place] injection 00 LARLY Medical EVERY TWO Branch WEEKS semaglutide 0 Yes [id number] Inject [facility] (OZEMPIC) 2-07 0.25 mg ity of 0.25 mg or 00:00: under the [place] 0.5 mg(2 00 skin Medical mg/1.5 mL) weekly. Branch PnIj CYANOCOBALA 0 Yes [id number] INJECT 1 [facility] MIN 1,000 2-07 ML ity of mcg/mL 00:00: INTRAMUSCU [place] injection 00 LARLY Medical EVERY TWO Branch WEEKS semaglutide 0 Yes [id number] Inject [facility] (OZEMPIC) 2-07 0.25 mg ity of 0.25 mg or 00:00: under the [place] 0.5 mg(2 00 skin Medical mg/1.5 mL) weekly. Branch PnIj CYANOCOBALA 0 Yes [id number] INJECT 1 [facility] MIN 1,000 2-07 ML ity of mcg/mL 00:00: INTRAMUSCU [place] injection 00 LARLY Medical EVERY TWO Branch WEEKS semaglutide 2022-0 Yes [id number] Inject [facility] (OZEMPIC) 2-07 0.25 mg ity of 0.25 mg or 00:00: under the [place] 0.5 mg(2 00 skin Medical mg/1.5 mL) weekly. Branch PnIj CYANOCOBALA 2022-0 Yes [id number] INJECT 1 [facility] MIN 1,000 2-07 ML ity of mcg/mL 00:00: INTRAMUSCU [place] injection 00 LARLY Medical EVERY TWO Branch WEEKS semaglutide Yes [id number] Inject [facility] (OZEMPIC) 2-07 0.25 mg ity of 0.25 mg or 00:00: under the [place] 0.5 mg(2 00 skin Medical mg/1.5 mL) weekly. Branch PnIj CYANOCOBALA 2022-0 Yes [id number] INJECT 1 [facility] MIN 1,000 2-07 ML ity of mcg/mL 00:00: INTRAMUSCU [place] injection 00 LARLY Medical EVERY TWO Branch WEEKS semaglutide 2022-0 Yes [id number] Inject [facility] (OZEMPIC) 2-07 0.25 mg ity of 0.25 mg or 00:00: under the [place] 0.5 mg(2 00 skin Medical mg/1.5 mL) weekly. Branch PnIj CYANOCOBALA 2022-0 Yes [id number] INJECT 1 [facility] MIN 1,000 2-07 ML ity of mcg/mL 00:00: INTRAMUSCU [place] injection 00 LARLY Medical EVERY TWO Branch WEEKS semaglutide 2022-0 Yes [id number] Inject [facility] (OZEMPIC) 2-07 0.25 mg ity of 0.25 mg or 00:00: under the [place] 0.5 mg(2 00 skin Medical mg/1.5 mL) weekly. Branch PnIj CYANOCOBALA 2022-0 Yes [id number] INJECT 1 [facility] MIN 1,000 2-07 ML ity of mcg/mL 00:00: INTRAMUSCU [place] injection 00 LARLY Medical EVERY TWO Branch WEEKS semaglutide 2022-0 Yes [id number] Inject Univers (OZEMPIC) 2-07 0.25 mg ity of 0.25 mg or 00:00: under the [place] 0.5 mg(2 00 skin Medical mg/1.5 mL) weekly. Branch PnIj CYANOCOBALA 2022-0 Yes [id number] INJECT 1 [facility] MIN 1,000 2-07 ML ity of mcg/mL 00:00: INTRAMUSCU [place] injection 00 LARLY Medical EVERY TWO Branch WEEKS semaglutide 0 Yes [id number] Inject [facility] (OZEMPIC) 2-07 0.25 mg ity of 0.25 mg or 00:00: under the [place] 0.5 mg(2 00 skin Medical mg/1.5 mL) weekly. Branch PnIj CYANOCOBALA 0 Yes [id number] INJECT 1 [facility] MIN 1,000 2-07 ML ity of mcg/mL 00:00: INTRAMUSCU [place] injection 00 LARLY Medical EVERY TWO Branch WEEKS semaglutide Yes [id number] Inject [facility] (OZEMPIC) 2-07 0.25 mg ity of 0.25 mg or 00:00: under the [place] 0.5 mg(2 00 skin Medical mg/1.5 mL) weekly. Branch PnIj CYANOCOBALA Yes [id number] INJECT 1 [facility] MIN 1,000 2-07 ML ity of mcg/mL 00:00: INTRAMUSCU [place] injection 00 LARLY Medical EVERY TWO Branch WEEKS semaglutide 0 Yes [id number] Inject [facility] (OZEMPIC) 2-07 0.25 mg ity of 0.25 mg or 00:00: under the [place] 0.5 mg(2 00 skin Medical mg/1.5 mL) weekly. Branch PnIj CYANOCOBALA 0 Yes [id number] INJECT 1 [facility] MIN 1,000 2-07 ML ity of mcg/mL 00:00: INTRAMUSCU [place] injection 00 LARLY Medical EVERY TWO Branch WEEKS semaglutide 0 Yes [id number] Inject [facility] (OZEMPIC) 2-07 0.25 mg ity of 0.25 mg or 00:00: under the [place] 0.5 mg(2 00 skin Medical mg/1.5 mL) weekly. Branch PnIj CYANOCOBALA 0 Yes [id number] INJECT 1 [facility] MIN 1,000 2-07 ML ity of mcg/mL 00:00: INTRAMUSCU [place] injection 00 LARLY Medical EVERY TWO Branch WEEKS semaglutide 2022-0 Yes [id number] Inject [facility] (OZEMPIC) 2-07 0.25 mg ity of 0.25 mg or 00:00: under the [place] 0.5 mg(2 00 skin Medical mg/1.5 mL) weekly. Branch PnIj CYANOCOBALA 2022-0 Yes [id number] INJECT 1 [facility] MIN 1,000 2-07 ML ity of mcg/mL 00:00: INTRAMUSCU [place] injection 00 LARLY Medical EVERY TWO Branch WEEKS semaglutide Yes [id number] Inject [facility] (OZEMPIC) 2-07 0.25 mg ity of 0.25 mg or 00:00: under the [place] 0.5 mg(2 00 skin Medical mg/1.5 mL) weekly. Branch PnIj CYANOCOBALA 0 Yes [id number] INJECT 1 [facility] MIN 1,000 2-07 ML ity of mcg/mL 00:00: INTRAMUSCU [place] injection 00 LARLY Medical EVERY TWO Branch WEEKS semaglutide 2022-0 Yes [id number] Inject [facility] (OZEMPIC) 2-07 0.25 mg ity of 0.25 mg or 00:00: under the [place] 0.5 mg(2 00 skin Medical mg/1.5 mL) weekly. Branch PnIj CYANOCOBALA Yes [id number] INJECT 1 [facility] MIN 1,000 2-07 ML ity of mcg/mL 00:00: INTRAMUSCU [place] injection 00 LARLY Medical EVERY TWO Branch WEEKS semaglutide 0 Yes [id number] Inject [facility] (OZEMPIC) 2-07 0.25 mg ity of 0.25 mg or 00:00: under the [place] 0.5 mg(2 00 skin Medical mg/1.5 mL) weekly. Branch PnIj CYANOCOBALA 0 Yes [id number] INJECT 1 [facility] MIN 1,000 2-07 ML ity of mcg/mL 00:00: INTRAMUSCU [place] injection 00 LARLY Medical EVERY TWO Branch WEEKS CYANOCOBALA 2022-0 Yes [id number] INJECT 1 [facility] MIN 1,000 2-07 ML ity of mcg/mL 00:00: INTRAMUSCU [place] injection 00 LARLY Medical EVERY TWO Branch WEEKS CYANOCOBALA 2022-0 Yes [id number] INJECT 1 [facility] MIN 1,000 2-07 ML ity of mcg/mL 00:00: INTRAMUSCU [place] injection 00 LARLY Medical EVERY TWO Branch WEEKS CYANOCOBALA 2022-0 Yes [id number] INJECT 1 [facility] MIN 1,000 2-07 ML ity of mcg/mL 00:00: INTRAMUSCU [place] injection 00 LARLY Medical EVERY TWO Branch WEEKS CYANOCOBALA 2022-0 Yes [id number] INJECT 1 [facility] MIN 1,000 2-07 ML ity of mcg/mL 00:00: INTRAMUSCU [place] injection 00 LARLY Medical EVERY TWO Branch WEEKS CYANOCOBALA 0 Yes [id number] INJECT 1 [facility] MIN 1,000 2-07 ML ity of mcg/mL 00:00: INTRAMUSCU [place] injection 00 LARLY Medical EVERY TWO Branch WEEKS CYANOCOBALA 0 Yes [id number] INJECT 1 [facility] MIN 1,000 2-07 ML ity of mcg/mL 00:00: INTRAMUSCU [place] injection 00 LARLY Medical EVERY TWO Branch WEEKS CYANOCOBALA 0 Yes [id number] INJECT 1 [facility] MIN 1,000 2-07 ML ity of mcg/mL 00:00: INTRAMUSCU [place] injection 00 LARLY Medical EVERY TWO Branch WEEKS CYANOCOBALA 0 Yes [id number] INJECT 1 [facility] MIN 1,000 2-07 ML ity of mcg/mL 00:00: INTRAMUSCU [place] injection 00 LARLY Medical EVERY TWO Branch WEEKS CYANOCOBALA 0 Yes [id number] INJECT 1 [facility] MIN 1,000 2-07 ML ity of mcg/mL 00:00: INTRAMUSCU [place] injection 00 LARLY Medical EVERY TWO Branch WEEKS semaglutide 2022- No [id number] Inject [facility] (OZEMPIC) 2-07 05-25 0.25 mg ity of 0.25 mg or [...] [facility] (CHRONULAC) 1-30 by mouth 2 Aiyana kes 10 gram/15 14:26: (two) Medica l [...] St (BUSPAR) 10 1-30 by mouth 2 Aiyana kes MG tablet 14:26: (two) Medical 13 [...] 0 Yes 2{puff} Inhale [address] [facility] [address] propion-melyssa 1-30 puffs by [facility] meteroL 14:26: mouth via Medic al (ADVAIR) 13 inhaler Center 100-50 every 12 mcg/dose (twelve) diskus hours. inhaler rosuvastati 0 Yes 10mg QD Take [address] n (CRESTOR) 1-30 by mouth [facility] 10 MG 14:26: daily. Medical tablet 13 Center losartan 0 Yes 50mg Take [address] [facility] (COZAAR) 50 1-30 by mouth 2 Aiyana kes MG tablet 14:26: (two) Medical 13 [...] Medical tablet 13 times Center daily. polyethylen 0 Yes 17g Q.5D Take [address] e glycol 1-30 by mouth 2 [facility] (GLYCOLAX) 14:26: (two) Medica l 17 gram 13 times Center packet daily. lactulose 0 Yes 30g Q.5D Take [address] [facility] (CHRONULAC) 1-30 by mouth 2 Aiyana kes 10 gram/15 14:26: (two) Medica l mL (15 mL) 13 times Center solution daily. ondansetron Yes 4mg Take [address] (ZOFRAN-ODT 1-30 by mouth [facility] s ) 4 MG 14:26: every 8 Medical disintegrat 13 (eight) Cente r ing tablet hours as needed for Nausea. sucralfate 2023-0 Yes 1g Q.5D Take 1 g [facility] (BUSPAR) 10 1-30 by mouth 2 Aiyana kes MG tablet 14:26: (two) Medical 13 [...] 2022-0 Yes 2{puff} Inhale [address] propion-melyssa 1-30 puffs by Luke s meteroL 14:26: mouth via Medic al (ADVAIR) 13 inhaler Center 100-50 every 12 mcg/dose (twelve) diskus hours. inhaler rosuvastati 2022-0 Yes 10mg QD Take [address] n (CRESTOR) 1-30 by mouth [facility] 10 MG 14:26: daily. Medical tablet 13 Center losartan 2022-0 Yes 50mg Take [address] (COZAAR) 50 1-30 by mouth 2 Aiyana kes MG tablet 14:26: (two) Medical 13 [...] [facility] (CHRONULAC) 1-30 by mouth 2 Aiyana kes 10 gram/15 14:26: (two) Medica l [...] St (BUSPAR) 10 1-30 by mouth 2 Aiyana kes MG tablet 14:26: (two) Medical 13 [...] 0 Yes 2{puff} Inhale [address] [address] propion-melyssa 1-30 puffs by Luke s meteroL 14:26: mouth via Medic al (ADVAIR) 13 inhaler Center 100-50 every 12 mcg/dose (twelve) diskus hours. inhaler rosuvastati 0 Yes 10mg QD Take [address] n (CRESTOR) 1-30 by mouth [facility] 10 MG 14:26: daily. Medical tablet 13 Center losartan 0 Yes 50mg Take [address] [facility] (COZAAR) 50 1-30 by mouth 2 Aiyana kes MG tablet 14:26: (two) Medical 13 times Center daily before meals. ascorbic 2023-0 Yes 1000mg QD Take 1,000 [facility] [...] [facility] (CHRONULAC) 1-30 by mouth 2 Aiyana kes 10 gram/15 14:26: (two) Medica l mL (15 mL) 13 times Center solution daily. ondansetron 3-0 Yes 4mg Take [address] (ZOFRAN-ODT 1-30 by mouth [facility] ) 4 MG 14:26: every 8 Medical disintegrat 13 (eight) Cente r ing tablet hours as needed for Nausea. sucralfate 2023-0 Yes 1g Q.5D Take [address] [facility] (CARAFATE) 1-30 by mouth 2 [place] 1 gram 14:26: (two) Medical tablet 13 times Center daily. pantoprazol 2023-0 Yes 40mg Take [address] [facility] e 1-30 by mouth 2 [facility] (PROTONIX) 14:26: (two) Medica l 20 MG 13 times Center tablet daily with breakfast and dinner. SUMAtriptan 2023-0 Yes 50mg Take [address] (IMITREX) 1-30 by mouth [facility] 50 MG 14:26: as needed Medical tablet 13 for Center Headaches or Migraine. busPIRone 2023-0 Yes 20mg Q.5D Take [address] (BUSPAR) 10 1-30 by mouth 2 Aiyana kes MG tablet 14:26: (two) Medical 13 [...] 0 Yes 2{puff} Inhale [address] [facility] [address] propion-melyssa 1-30 puffs by [facility] meteroL 14:26: mouth via Medic al (ADVAIR) 13 inhaler Center 100-50 every 12 mcg/dose (twelve) diskus hours. inhaler rosuvastati 0 Yes 10mg QD Take [address] [facility] n (CRESTOR) 1-30 by mouth [facility] s 10 MG 14:26: daily. Medical tablet 13 Center losartan 0 Yes 50mg Take [address] [facility] (COZAAR) 50 1-30 by mouth 2 Aiyana kes MG tablet 14:26: (two) Medical 13 [...] [facility] (CHRONULAC) 1-30 by mouth 2 Aiyana kes 10 gram/15 14:26: (two) Medica l mL (15 mL) 13 times Center solution daily. ondansetron 3-0 Yes 4mg Take [address] (ZOFRAN-ODT 1-30 by mouth Luke s ) 4 MG 14:26: every 8 Medical disintegrat 13 (eight) Cente r ing tablet hours as needed for Nausea. sucralfate 3-0 Yes 1g Q.5D Take 1 g [facility] St (BUSPAR) 10 1-30 by mouth 2 Aiyana kes MG tablet 14:26: (two) Medical 13 [...] fluticasone Yes 2{puff} Inhale [address] [facility] propion-melyssa 1-30 puffs by [facility] meteroL 14:26: mouth via Medic al (ADVAIR) 13 inhaler Center 100-50 every 12 mcg/dose (twelve) diskus hours. inhaler rosuvastati Yes 10mg QD Take [address] [facility] n (CRESTOR) 1-30 by mouth [facility] s 10 MG 14:26: daily. Medical tablet 13 [place] losartan Yes 50mg Take [address] [facility] (COZAAR) 50 1-30 by mouth 2 Aiyana kes MG tablet 14:26: (two) Medical 13 [...] Medical tablet 13 times Center daily. polyethylen 0 Yes 17g Q.5D Take [address] e glycol 1-30 by mouth 2 [facility] (GLYCOLAX) 14:26: (two) Medica l 17 gram 13 times Center packet daily. lactulose 3-0 Yes 30g Q.5D Take [address] [facility] (CHRONULAC) 1-30 by mouth 2 [facility]ana kes 10 gram/15 14:26: (two) Medica l [...] St (BUSPAR) 10 1-30 by mouth 2 Aiyana kes MG tablet 14:26: (two) Medical 13 [...] nter mcg/mL every 2 injection weeks. levothyroxi 2023-0 Yes 50ug Take [address] [facility] ne [...] 2022-0 Yes 2{puff} Inhale [address] [facility] propion-melyssa 1-30 puffs by [facility] meteroL 14:26: mouth via Medic al (ADVAIR) 13 inhaler Center 100-50 every 12 mcg/dose (twelve) diskus hours. inhaler rosuvastati 2022-0 Yes 10mg QD Take [address] [facility] n (CRESTOR) 1-30 by mouth [facility] s 10 MG 14:26: daily. Medical tablet 13 Center losartan 0 Yes 50mg Take [address] [address] (COZAAR) 50 1-30 by mouth 2 Aiyana kes MG tablet 14:26: (two) Medical 13 [...] Medical tablet 13 times Center daily. rosuvastati 0 Yes 10mg 10 mg, Univ ers n (CRESTOR) 1-25 Oral, QHS, it y of tablet 10 03:00: First dose [place] mg 00 on Tue Medical 10/19/22 at Branch 2100, Until Discontinu ed, Routine lactulose 2022-0 Yes 30mL 30 mL, Univer s (CEPHULAC) 1-25 Oral, BID, ity of solution 30 02:00: First dose [place] mL 00 (after Medical last Branch modificati on) on Tue10/19/22 at 2000, Until Discontinu ed, Routine SUMAtriptan No 50mg 50 mg, Uni vers (IMITREX) 10-19 Oral, ity of tablet 50 20:15: 21:00 ONCE, 1 [place] 00 :00 dose, On Medical [facility] Branch 10/19/22 at 1415, Routine NaCl 0.9% 2022- No 500mL at 999 Univ ers (NS) bolus 10-19 mL/hr, 500 it y of infusion 19:30: 18:59 mL, IV [place] 500 mL 00 :00 Piggyback, Medical ONCE, 1 Branch dose, On Tue10/19/22 at 1330, STAT MULTIVIT [facility] &[facility]/F 10-19 mouth. ity of ERROUS FUM 17:49: [place] (MULTI 09 Medical VITAMIN Branch ORAL) METHYLCELLU Yes Univer s LOSE (FIBER 24 ity of THERAPY 17:49: [facility]) 09 Medical Branch DOCUSATE Yes [facility] SODIUM -24 mouth. ity of (COLACE 17:49: [place] ORAL) 09 Medical Branch vitamin C Yes 1000mg Take 1,000 Univers with derrell 1-24 mg by ity of hips 1,000 17:49: mouth [place] mg tablet 09 daily. Medical Branch CRANBERRY Yes Take by [facility] rs FRUIT 10-19 mouth ity of EXTRACT 17:49: daily. [place] (CRANBERRY 09 Medical ORAL) Branch MULTIVIT Yes Take by Univer s &MINERALS/F -24 mouth. ity of ERROUS FUM 17:49: [place] (MULTI 09 Medical VITAMIN Branch ORAL) METHYLCELLU 0 Yes Univer s LOSE (FIBER -24 ity of THERAPY 17:49: [place] MIS) 09 [...] 17:49: daily. [place] (CRANBERRY 09 Medical ORAL) Chromo MULTIVIT Yes Take by Univer s &MINERALS/F [...] 17:49: daily. [place] (CRANBERRY 09 Medical ORAL) Chromo MULTIVIT Yes Take by Univer s &MINERALS/F 1-24 mouth. ity of ERROUS FUM 17:49: [place] ([facility] 09 Medical VITAMIN Branch ORAL) METHYLCELLU Yes Univer s LOSE (FIBER 1-24 ity of THERAPY 17:49: [place] [facility]) [address] [place] [address] Branch DOCUSATE Yes Take by Univer s SODIUM 1-24 mouth. ity of (COLACE 17:49: [place] ORAL) [address] [place] [address] Branch vitamin C Yes 1000mg Take 1,000 Univers with derrell 1-24 mg by ity of hips 1,000 17:49: mouth [place] mg tablet 09 daily. Medical Branch CRANBERRY Yes Take by Unive rs FRUIT 1-24 mouth ity of EXTRACT 17:49: daily. [place] (CRANBERRY 09 Medical ORAL) Chromo MULTIVIT Yes Take by Univer s &MINERALS/F 1-24 mouth. ity of ERROUS FUM 17:49: [place] ([facility] 09 Medical VITAMIN Branch ORAL) METHYLCELLU [...] mouth. ity of ERROUS FUM 17:49: [place] ([place] [address] Medical VITAMIN Branch ORAL) METHYLCELLU Yes Univer s LOSE (FIBER 1-24 ity of THERAPY 17:49: [place] MIS) 09 Medical Branch DOCUSATE Yes [...] mouth. ity of ERROUS FUM 17:49: [place] ([facility] 09 Medical VITAMIN Branch ORAL) METHYLCELLU Yes Univer s LOSE (FIBER 1-24 ity of THERAPY 17:49: [facility]) 09 Medical Branch DOCUSATE Yes Take by [...] LOSE (FIBER 1-24 ity of THERAPY 17:49: [facility]) 09 Medical Branch DOCUSATE Yes Take by [...] LOSE (FIBER 1-24 ity of THERAPY 17:49: [facility]) 09 Medical Branch DOCUSATE Yes Take by [...] LOSE (FIBER 1-24 ity of THERAPY 17:49: [facility]) Medical Branch DOCUSATE Yes Take by Univer s SODIUM 1-24 mouth. ity of (COLACE 17:49: [place] ORAL) [address] [place] [address] Branch vitamin C Yes 1000mg Take 1,000 Univers with derrell 1-24 mg by ity of hips 1,000 17:49: mouth [place] mg tablet 09 daily. Medical Branch CRANBERRY Yes Take by Unive rs FRUIT 1-24 mouth ity of EXTRACT 17:49: daily. [place] (CRANBERRY 09 Medical ORAL) Branch MULTIVIT Yes Take by Univer s &MINERALS/F 1-24 mouth. ity of ERROUS FUM 17:49: [place] ([facility] 09 Medical VITAMIN Branch ORAL) METHYLCELLU Yes Univer s LOSE (FIBER 1-24 ity of THERAPY 17:49: [facility]) [address] [place] [address] Branch DOCUSATE Yes Take by Univer s SODIUM 1-24 mouth. ity of (COLACE 17:49: [place] ORAL) [address] [place] [address] Branch vitamin C Yes 1000mg Take 1,000 [...] LOSE (FIBER 1-24 ity of THERAPY 17:49: [facility]) Medical Branch DOCUSATE Yes Take by Univer s SODIUM 1-24 mouth. ity of (COLACE 17:49: [place] ORAL) [address] [place] [address] Branch vitamin C Yes 1000mg Take 1,000 Univers with derrell 1-24 mg by ity of hips 1,000 17:49: mouth [place] mg tablet 09 daily. Medical Branch CRANBERRY Yes Take by Unive rs FRUIT 1-24 mouth ity of EXTRACT 17:49: daily. [place] (CRAN[facility]ERRY 09 Medical ORAL) Chromo MULTIVIT Yes Take by Univer s &MINERALS/F 1-24 mouth. ity of ERROUS FUM 17:49: [place] (MULTI 09 Medical VITAMIN Branch ORAL) METHYLCELLU Yes Univer s LOSE (FIBER 1-24 ity of THERAPY 17:49: [place] MIS) 09 Medical Branch DOCUSATE Yes Take by Univer s SODIUM 1-24 mouth. ity of (COLACE 17:49: [place] ORAL) [address] [place] [address] Branch vitamin C Yes 1000mg Take 1,000 Univers with derrell 1-24 mg by ity of hips 1,000 17:49: mouth [place] mg tablet 09 daily. Medical Branch CRANBERRY Yes Take by Unive rs FRUIT 1-24 mouth ity of EXTRACT 17:49: daily. [place] (CRANBERRY 09 Medical ORAL) Chromo MULTIVIT Yes Take by Univer s &MINERALS/F 1-24 mouth. ity of ERROUS FUM 17:49: [place] ([facility] 09 Medical VITAMIN Branch ORAL) METHYLCELLU Yes Univer s LOSE (FIBER 1-24 ity of THERAPY 17:49: [facility]) [address] [place] [address] Branch DOCUSATE Yes Take by Univer s SODIUM 1-24 mouth. ity of (COLACE 17:49: [place] ORAL) [address] [place] [address] Branch vitamin C Yes 1000mg Take 1,000 Univers with derrell 1-24 mg by ity of hips 1,000 17:49: mouth [place] mg tablet 09 daily. Medical Branch CRANBERRY Yes Take by Unive rs FRUIT 1-24 mouth ity of EXTRACT 17:49: daily. [place] (CRANBERRY 09 Medical ORAL) Chromo MULTIVIT Yes Take by Univer s &MINERALS/F 1-24 mouth. ity of ERROUS FUM 17:49: [place] ([facility] 09 Medical VITAMIN Branch ORAL) METHYLCELLU [...] LOSE (FIBER 1-24 ity of THERAPY 17:49: [facility]) Medical Branch DOCUSATE Yes Take by Univer [...] LOSE (FIBER 1-24 ity of THERAPY 17:49: [facility]) [address] [place] [address] Branch DOCUSATE Yes Take by Univer s [...] LOSE (FIBER 1-24 ity of THERAPY 17:49: [facility]) Medical Branch DOCUSATE Yes Take by Univer s SODIUM 1-24 mouth. ity of (COLACE 17:49: [place] ORAL) Medical Branch vitamin C Yes 1000mg Take 1,000 Univers with derrell 1-24 mg by ity of hips 1,000 17:49: mouth [place] mg tablet 09 daily. Medical Branch CRANBERRY Yes Take by Unive rs FRUIT 1-24 mouth ity of EXTRACT 17:49: daily. [place] (CRAN[facility]ERRY 09 Medical ORAL) Chromo MULTIVIT Yes Take by Univer s &MINERALS/F 1-24 mouth. ity of ERROUS FUM 17:49: [place] (MULTI 09 Medical VITAMIN Branch ORAL) METHYLCELLU Yes Univer s LOSE (FIBER 1-24 ity of THERAPY 17:49: [facility]) [address] [place] [address] Branch DOCUSATE Yes Take by Univer s SODIUM 1-24 mouth. ity of (COLACE 17:49: [place] ORAL) [address] [place] [address] Branch vitamin C Yes 1000mg Take 1,000 Univers with derrell 1-24 mg by ity of hips 1,000 17:49: mouth [place] mg tablet 09 daily. Medical Branch CRANBERRY Yes Take by Unive rs FRUIT 1-24 mouth ity of EXTRACT 17:49: daily. [place] (CRAN[facility]ERRY 09 Medical ORAL) Chromo MULTIVIT Yes Take by Univer s &MINERALS/F 1-24 mouth. ity of ERROUS FUM 17:49: [place] (MULTI 09 Medical VITAMIN Branch ORAL) METHYLCELLU Yes Univer s LOSE (FIBER 1-24 ity of THERAPY 17:49: [facility]) [address] [place] [address] Branch DOCUSATE Yes Take by Univer s [...] LOSE (FIBER 1-24 ity of THERAPY 17:49: [facility]) Medical Branch DOCUSATE Yes Take by Univer [...] 17:49: daily. [place] (CRAN[facility]ERRY 09 Medical ORAL) Chromo MULTIVIT Yes Take by Univer s &MINERALS/F 1-24 mouth. ity of ERROUS FUM 17:49: [place] ([facility] 09 Medical VITAMIN Branch ORAL) METHYLCELLU Yes Univer s LOSE (FIBER 1-24 ity of THERAPY 17:49: [facility]) [address] [place] [address] Branch DOCUSATE Yes Take by Univer s [...] LOSE (FIBER 1-24 ity of THERAPY 17:49: [facility]) 09 Medical Branch DOCUSATE Yes Take by [...] LOSE (FIBER 1-24 ity of THERAPY 17:49: [facility]) [address] [place] [address] Branch DOCUSATE Yes Take by Univer s SODIUM 1-24 mouth. ity of (COLACE 17:49: [place] ORAL) [address] [place] [address] Branch vitamin C Yes 1000mg Take 1,000 Univers with derrell 1-24 mg by ity of hips 1,000 17:49: mouth [place] mg tablet 09 daily. Medical Branch CRANBERRY Yes Take by Unive rs FRUIT 1-24 mouth ity of EXTRACT 17:49: daily. [place] (CRAN[facility]Y 09 Medical ORAL) Chromo MULTIVIT Yes Take by Univer s &MINERALS/F 1-24 mouth. ity of ERROUS FUM 17:49: [place] ([place] [address] Medical VITAMIN Branch ORAL) METHYLCELLU Yes Univer s LOSE (FIBER 1-24 ity of THERAPY 17:49: [facility]) [address] [place] [address] Branch DOCUSATE Yes Take by Univer s SODIUM 1-24 mouth. ity of (COLACE 17:49: [place] ORAL) [address] [place] [address] vitamin C Yes 1000mg Take 1,000 Univers with derrell 1-24 mg by ity of hips 1,000 17:49: mouth [place] mg tablet 09 daily. [facility] Branch CRANBERRY Yes Take by Unive rs FRUIT 1-24 mouth ity of EXTRACT 17:49: daily. [place] (CRAN[facility]Y 09 Medical ORAL) Chromo MULTIVIT Yes Take by Univer s &MINERALS/F 1-24 mouth. ity of ERROUS FUM 17:49: [place] ([facility] 09 Medical VITAMIN Branch ORAL) METHYLCELLU Yes Univer s LOSE (FIBER 1-24 ity of THERAPY 17:49: [facility]) [address] [place] [address] Branch DOCUSATE Yes Take by Univer s SODIUM 1-24 mouth. ity of (COLACE 17:49: [place] ORAL) [address] [place] [address] Branch vitamin C Yes 1000mg Take 1,000 Univers with derrell 1-24 mg by ity of hips 1,000 17:49: mouth [place] mg tablet 09 daily. Medical Branch CRANBERRY Yes Take by Unive rs FRUIT 1-24 mouth ity of EXTRACT 17:49: daily. [place] (CRANBERRY 09 Medical ORAL) Chromo MULTIVIT Yes Take by Univer s &MINERALS/F 1-24 mouth. ity of ERROUS FUM 17:49: [place] (MULTI 09 Medical VITAMIN Branch ORAL) METHYLCELLU Yes Univer s LOSE (FIBER 1-24 ity of THERAPY 17:49: [place] MIS) 09 [facility] Branch DOCUSATE Yes Take by Univer s SODIUM 1-24 mouth. ity of (COLACE 17:49: [place] ORAL) [address] [place] [address] Branch vitamin C Yes 1000mg Take 1,000 Univers with derrell 1-24 mg by ity of hips 1,000 17:49: mouth [place] mg tablet 09 daily. Medical Branch CRANBERRY Yes Take by Unive rs FRUIT 1-24 mouth ity of EXTRACT 17:49: daily. [place] (CRANBERRY 09 Medical ORAL) Chromo MULTIVIT Yes Take by Univer s &MINERALS/F 1-24 mouth. ity of ERROUS FUM 17:49: [place] ([facility] 09 Medical VITAMIN Branch ORAL) METHYLCELLU Yes Univer s LOSE (FIBER 1-24 ity of THERAPY 17:49: [facility]) [address] [place] [address] Branch DOCUSATE Yes Take by Univer s SODIUM 1-24 mouth. ity of (COLACE 17:49: [place] ORAL) [address] [place] [address] Branch vitamin C Yes 1000mg Take 1,000 Univers with derrell 1-24 mg by ity of hips 1,000 17:49: mouth [place] mg tablet 09 daily. Medical Branch CRANBERRY Yes Take by Unive rs FRUIT 1-24 mouth ity of EXTRACT 17:49: daily. [place] (CRAN[facility]Y 09 Medical ORAL) Branch MULTIVIT Yes Take by Univer s &MINERALS/F 1-24 mouth. ity of ERROUS FUM 17:49: [place] ([facility] 09 Medical VITAMIN Branch ORAL) METHYLCELLU Yes Univer s LOSE (FIBER 1-24 ity of THERAPY 17:49: [facility]) 09 Medical Branch DOCUSATE Yes Take by [...] LOSE (FIBER 1-24 ity of THERAPY 17:49: [facility]) Medical Branch DOCUSATE Yes Take by Univer [...] LOSE (FIBER 1-24 ity of THERAPY 17:49: [facility]) Medical Branch DOCUSATE Yes Take by Univer [...] LOSE (FIBER 1-24 ity of THERAPY 17:49: [facility]) Medical Branch DOCUSATE Yes Take by Univer [...] LOSE (FIBER 1-24 ity of THERAPY 17:49: [facility]) Medical Branch DOCUSATE Yes Take by Univer [...] LOSE (FIBER 1-24 ity of THERAPY 17:49: [facility]) Medical Branch DOCUSATE Yes Take by Univer [...] mouth. ity of ERROUS FUM 17:49: [place] ([facility] 09 Medical VITAMIN Branch ORAL) METHYLCELLU [...] mouth. ity of ERROUS FUM 17:49: [place] ([place] [address] Medical VITAMIN Branch ORAL) METHYLCELLU Yes Univer [...] mouth. ity of ERROUS FUM 17:49: [place] ([facility] 09 Medical VITAMIN Branch ORAL) METHYLCELLU [...] LOSE (FIBER 1-24 ity of THERAPY 17:49: [facility]) 09 Medical Branch DOCUSATE Yes Take by Univer s SODIUM 1-24 mouth. ity of (COLACE 17:49: [place] ORAL) 09 [facility] Branch vitamin C Yes 1000mg Take 1,000 [...] LOSE (FIBER 1-24 ity of THERAPY 17:49: [facility]) Medical Branch DOCUSATE Yes Take by Univer [...] ity of ERROUS FUM 17:49: [place] (MULTI Medical VITAMIN Branch ORAL) METHYLCELLU Yes Univer s LOSE (FIBER -24 ity of THERAPY 17:49: [place] MISC) [facility] Branch DOCUSATE Yes Take by Univer s SODIUM -24 mouth. ity of (COLACE 17:49: [place] ORAL) [address] [place] [address] vitamin C Yes 1000mg Take 1,000 Univers with derrell 1-24 mg by ity of hips 1,000 17:49: mouth [place] mg tablet 09 daily. [facility] Branch CRANBERRY [facility] mouth ity of EXTRACT 17:49: daily. [place] (CRANBERRY Medical ORAL) Chromo polyethylen Yes 17g 17 g, Unive rs e glycol -24 Oral, BID, ity o f 3350 powder 16:45: First dose [place] 17 g 00 on [facility] 10/19/22 at Branch 1045, Until Discontinu ed, Routine pantoprazol Yes 40mg 40 mg, Univ ers e 1-24 Oral, BID, ity of (PROTONIX) 16:15: First dose [place] 2 mg/mL 00 on [facility] oral 10/19/22 at Branch suspension 1015, 40 mg Until Discontinu ed, Routine montelukast 0 Yes 10mg 10 mg, Univ ers (SINGULAIR) 24 Oral, ity of tablet 10 15:00: DAILY, [place] mg 00 First dose Medical on [facility] 10/19/22 at 0900, Until Discontinu ed, Routine citalopram Yes 40mg 40 mg, Unive rs (CELEXA) 124 Oral, ity of tablet 40 15:00: DAILY, [place] mg 00 First dose Medical on [facility] 10/19/22 at 0900, Until Discontinu ed, Routine losartan 0 Yes 50mg 50 mg, Univers (COZAAR) 1-24 Oral, BID, ity o f tablet 50 14:00: First dose [place] mg 00 on [facility] 10/19/22 at Branch 0800, Until Discontinu ed, Routine fluticasone 3-0 Yes 2{puff} 2 Puff, Univers propionate 24 [...] First dose [place] mg 00 on [facility] 10/19/22 at Branch 0800, Until [...] by ity of ACID/EPA 13:15: 00:00 mouth [place] (FISH OIL 59 :00 daily. Medical ORAL) Branch BIOTIN ORAL 2022-0 2022- No Take by Un jerrod 10-19 mouth. ity of 13:15: 00:00 [place] 59 :00 Medical Branch FOLIC ACID 2022-0 202- No Take by Uni vers ORAL 10-19 mouth ity of 13:15: 00:00 daily. [place] 59 :00 Medical Branch cholecalcif 3-0 2023- No 1000U Take 1,000 Univers edmar, 10-1924 Units by ity of vitamin D3, 13:15: 00:00 [place] 25 mcg 59 :00 daily. Medical (1,000 Branch unit) tablet CALCIUM 2023-0 2023- No Take by [facility] ORAL 10-19 mouth ity of 13:15: 00:00 daily. [place] 59 :00 Medical Branch DOCOSAHEXAN 2023-0 2023- No 1000mg Take 1,000 Univers OIC -19 10-24 mg by ity of ACID/EPA 13:15: 00:00 [...] tablet CALCIUM 2023-0 2023- No Take by [facility] ORAL 10-19 mouth ity of 13:15: [...] tablet CALCIUM 2023-0 2023- No Take by [facility] ORAL 10-19 mouth ity of 13:15: [...] tablet CALCIUM 2023-0 2023- No Take by [employer] ORAL 10-19 mouth ity of 13:15: 00:00 [...] tablet CALCIUM 2023-0 2023- No Take by [facility] ORAL 10-19 mouth ity of 13:15: [...] 2023- No 1000mg Take 1,000 Univers OIC 1-24 01-24 mg by ity of ACID/EPA 13:15: 00:00 [...] tablet CALCIUM 3-0 2023- No Take by Univer s ORAL 10-19 mouth ity of 13:15: 00:00 daily. [place] 59 :00 Medical Branch DOCOSAHEXAN 2023-0 2023- No 1000mg Take 1,000 Univers OIC 10-19 mg by ity of ACID/EPA 13:15: 00:00 mouth [place] (FISH OIL 59 :00 daily. Medical ORAL) Branch BIOTIN ORAL 3-0 3- No Take by Un jerrod 10-19 [...] FOLIC ACID 2023-0 2023- No Take by Un jerrod ORAL 10-19 mouth ity of 13:15: 00:00 [...] daily. [place] 59 :00 Medical Branch DOCOSAHEXAN 2023-0 2023- No 1000mg Take 1,000 Univers OIC 10-19 mg by ity of ACID/EPA 13:15: 00:00 mouth [place] (FISH OIL 59 :00 daily. Medical ORAL) Branch BIOTIN ORAL 2023-0 2023- No Take by Un jerrod 10-19 mouth. ity of 13:15: 00:00 [place] 59 :00 Medical Branch FOLIC ACID 2023-0 2023- No Take by Uni vers ORAL 10-19 mouth ity of 13:15: 00:00 daily. [place] 59 :00 Medical Branch cholecalcif 2023-0 2023- No 1000U Take 1,000 Univers edmar, 10-19 Units by ity of vitamin D3, 13:15: 00:00 [place] 25 mcg 59 :00 daily. Medical (1,000 Branch unit) tablet CALCIUM 2023-0 2023- No Take by Univer s ORAL 10-19 mouth ity of 13:15: 00:00 daily. [place] 59 :00 Medical Branch DOCOSAHEXAN 2023-0 2023- [...] daily. [place] 59 :00 Medical Branch cholecalcif 2023-0 2023- No 1000U Take 1,000 Univers edmar, 10-19 Units by ity of vitamin D3, 13:15: 00:00 mouth [place] 25 mcg 59 :00 daily. Medical (1,000 Branch unit) tablet CALCIUM 2023-0 2023- No Take by Univer s ORAL 10-19 mouth ity of 13:15: 00:00 daily. [place] 59 :00 Medical Branch DOCOSAHEXAN 2023-0 2023- No 1000mg Take 1,000 Univers OIC 10-19 mg by ity of ACID/EPA 13:15: 00:00 mouth [place] (FISH OIL 59 :00 daily. Medical ORAL) Branch BIOTIN ORAL 2023-0 2023- No Take by Un jerrod 10-19 mouth. ity of 13:15: 00:00 [place] 59 :00 Medical Branch FOLIC ACID 2023-0 2023- No Take by Uni vers ORAL 10-19 mouth ity of 13:15: 00:00 daily. [place] 59 :00 Medical Branch cholecalcif 3-0 2023- No 1000U Take 1,000 Univers edmar, 10-19 Units by ity of vitamin D3, 13:15: 00:00 mouth [place] 25 mcg 59 :00 daily. Medical (1,000 Branch unit) tablet CALCIUM 2023-0 2023- No Take by [facility] ORAL 10-19 mouth ity of 13:15: 00:00 daily. [place] 59 :00 Medical Branch DOCOSAHEXAN 2023-0 2023- No 1000mg Take 1,000 Univers OIC 10-1924 mg by ity of ACID/EPA 13:15: 00:00 mouth [place] (FISH OIL 59 :00 daily. Medical ORAL) Branch BIOTIN ORAL 2023-0 2023- No Take by Un jerrod 10-19 mouth. ity of 13:15: 00:00 [place] 59 :00 Medical Branch FOLIC ACID 2023-0 2023- No Take by Uni vers ORAL 10-19 mouth ity of 13:15: 00:00 daily. [place] 59 :00 Medical Branch cholecalcif 2023-0 2023- No 1000U Take 1,000 Univers edmar, -24 Units by ity of vitamin D3, 13:15: [...] tablet CALCIUM 2023-0 2023- No Take by [facility] ORAL 10-19 mouth ity of 13:15: [...] tablet CALCIUM 2023-0 2023- No Take by [facility] [employer] ORAL 10-19 mouth ity of 13:15: 00:00 [...] tablet CALCIUM 2023-0 2023- No Take by [employer] ORAL 10-19 mouth ity of 13:15: 00:00 [...] tablet CALCIUM 2023-0 2023- No Take by [facility] ORAL 10-19 mouth ity of 13:15: [...] tablet CALCIUM 3-0 2023- No Take by [facility] ORAL 10-19 mouth ity of 13:15: 00:00 daily. [place] 59 :00 Medical Branch DOCOSAHEXAN 3-0 2023- [...] tablet CALCIUM 2023-0 2023- No Take by [facility] ORAL 10-19 mouth ity of 13:15: [...] 2023- No 1000mg Take 1,000 Univers OIC 1-24 01-24 mg by ity of ACID/EPA 13:15: 00:00 [...] :00 daily. Medical ORAL) Branch BIOTIN ORAL 2022- No Take by Un jerrod 10-19 [...] daily. [place] 59 :00 Medical Branch DOCOSAHEXAN 2022- No 1000mg Take 1,000 Univers OIC 10-19 mg by ity of ACID/EPA 13:15: 00:00 mouth [place] (FISH OIL 59 :00 daily. Medical ORAL) Branch BIOTIN ORAL 2022- No Take by Un jerrod 10-19 mouth. ity of 13:15: 00:00 [place] 59 :00 Medical Branch levothyroxi Yes 50ug 50 mcg, Uni vers ne 10-19 Oral, ity of (SYNTHROID) 12:00: QAM-0600, [place] tablet 50 00 First dose Medi cipriano mcg on [facility] 10/19/22 at 0600, Until Discontinu ed, Routine NaCl 0.9% 2022- No 500mL at 999 [facility] ers (NS) bolus 10-19 mL/hr, 500 it y of infusion 10:14: 12:01 mL, IV [place] 500 mL 00 :20 Piggyback, Medical ONCE, 1 Branch dose, On [facility] 10/19/22 at 0415, SABRINA traMADoL 2022- No 50mg 50 mg, Univer s (ULTRAM) 10-19 Oral, ONCE ity of tablet 50 09:45: 10:14 NOW, 1 [place] mg 00 :00 dose, On Medical [facility] 10/19/22 at 0345, Routine diltiazem 0 Yes 120mg 120 mg, Univ ers XR 24 Oral, BID, ity of (DILT-XR) 05:15: First dose [place] capsule 120 00 (after Medica l mg last Branch modificati on) on [facility] 10/18/22 at 2315, Until Discontinu ed traMADoL 0 2022- No 50mg 50 mg, Univer s (ULTRAM) 10-19 Oral, ONCE ity of tablet 50 05:15: 04:44 NOW, 1 [place] mg 00 :00 dose, On Medical [facility] 10/18/22 at 2315, Routine acetaminoph Yes 650mg 650 mg, Un jerrod en 10-19 Oral, Q6H ity of (TYLENOL) 05:00: ABX, First [place] tablet 650 00 dose on Medica l mg [facility] 10/18/22 at 2300, Until Discontinu ed, Routine lidocaine 0 Yes 1{patch 1 Patch, U nivers (LIDODERM) 10-19 } Topical, ity o f 5 % (700 05:00: Administer Emanuel as mg/patch) 00 over 12 Medical patch 1 Hours, Branch Patch Q12H ABX, First dose on [facility] 10/18/22 at 2300, Until Discontinu ed, SABRINA lactulose No 30mL 30 mL, Unive rs (CEPHULAC) 10-19 Oral, ity of solution 30 04:15: 16:39 DAILY, [place] mL 00 :06 First dose Medical on [facility] 10/18/22 at 2215, Until Discontinu ed, Routine sucralfate 0 Yes 1g 1 g, Oral, U nivers (CARAFATE) 10-19 AC+HS, ity of tablet 1 g 03:45: First dose [place] 00 on [facility] 10/18/22 at Branch 2145, Until Discontinu ed, Routine famotidine 0 Yes 20mg 20 mg, Unive rs (PEPCID AC) 10-19 Oral, BID, it y of tablet 20 03:45: First dose [place] mg 00 on [facility] 10/18/22 at Branch 2145, Until Discontinu ed, Routine simethicone 2023-0 Yes 80mg 80 mg, Univ ers (GAS RELIEF 10-19 Oral, ity of (SIMETHICON 03:45: PC+HS, [place] E)) 00 First dose Medical chewable on [facility] tablet 80 10/18/22 at mg 2145, Until Discontinu ed, Routine sennosides- 2022-0 Yes 1{tbl} 1 tablet, [facility] docusate 10-19 Oral, ity of sodium 03:45: DAILY, [place] (SENOKOT-S) 00 First dose Me dical 8.6-50 mg on [facility] per tablet 10/18/22 at 1 tablet 2144, Until Discontinu ed, Routine psyllium 2022-0 2022- No 1{packe 1 Packet, [facility] husk 10-19 t} Oral, ity of (METAMUCIL 03:45: 16:39 DAILY, [place] (SUGAR 00 :06 First dose Medical FREE)) 3.4 on [facility] gram oral 10/18/22 at powder 5, packet 1 Until Packet Discontinu ed, Routine dicyclomine 0 2022- No 20mg 20 mg, Uni vers (BENTYL) 10-19 Oral, QID, ity of tablet 20 03:45: 16:38 First dose [place] mg 00 :09 on [facility] 10/18/22 at Branch 2145, Until Discontinu ed, Routine ondansetron 2022-0 Yes 4mg 4 mg, Unive rs (ZOFRAN-ODT 10-19 Oral, Q8H ity of ) 03:33: ABX, First [place] disintegrat 00 dose on Medic al ing tablet [facility] 4 mg 10/18/22 at 2145, Until Discontinu ed, Routine cyclobenzap 2022-0 Yes 5mg 5 mg, Unive rs rine 10-19 Oral, ity of (FLEXERIL) 03:23: Q8HPRN, [place] tablet 5 mg 31 Starting Medi cipriano on [facility] 10/18/22 at 2123, Until Discontinu ed, Routine, Muscle Spasms, tension headaches albuterol 2022-0 Yes 2{puff} 2 Puff, Un jerrod (VENTOLIN) 10-19 Inhalation ity of inhaler 2 03:10: , Q6HPRN, [place] as Puff 47 Starting Medical on Mon Branch 10/18/22 at 2110, Until Discontinu ed, Routine, Wheezing, Shortness of Breath polyethylen 2023-0 Yes [id number] 17g Take 1 Univers e glycol 1-24 Packet by ity of 3350 17 00:00: mouth in [place] gram powder 00 the Medical morning Branch and 1 Packet in the evening. lactulose 2023-0 Yes [id number] 30mL Take 30 mL Univers 10 gram/15 1-24 by mouth ity o f mL solution 00:00: in the morning Medical and 30 mL Branch in the evening. ondansetron 2023-0 Yes [id number] 4mg Take 1 Univers 4 mg 1-24 tablet by ity of disintegrat 00:00: mouth [place] ing tablet 00 every 8 Medica l (eight) Branch hours as needed for Nausea and Vomiting (N/V). sucralfate 2023-0 Yes [id number] 1g Take 1 Univers 1 gram 1-24 tablet by ity of tablet 00:00: mouth 00 before Medical meals and Branch at bedtime. pantoprazol 2023-0 Yes [id number] 40mg Take 1 Univers e 40 mg EC 1-24 tablet by ity of tablet 00:00: mouth in [place] 00 the Medical morning Branch and 1 tablet in the evening. SUMAtriptan 2023-0 Yes [id number] 50mg Take 1 Univers 50 mg 1-24 tablet by ity of tablet 00:00: mouth as 00 needed for Medical Migraine. Branch May repeat dose after >=2 hours, max dose 200mg in 24 hours. polyethylen 2023-0 Yes [id number] 17g Take 1 Univers e glycol 1-24 Packet by ity of 3350 17 00:00: mouth in [place] gram powder 00 the Medical morning Branch and 1 Packet in the evening. lactulose 2023-0 Yes [id number] 30mL Take 30 mL Univers 10 gram/15 1-24 by mouth ity o f mL solution 00:00: in the morning Medical and 30 mL Branch in the evening. ondansetron 2023-0 Yes [id number] 4mg Take 1 Univers 4 mg 1-24 tablet by ity of disintegrat 00:00: mouth [place] ing tablet 00 every 8 Medica l (eight) Branch hours as needed for Nausea and Vomiting (N/V). sucralfate 2023-0 Yes [id number] 1g Take 1 [facility] 1 gram 1-24 tablet by [facility] of tablet 00:00: mouth [place] 00 before Medical meals and Branch at bedtime. pantoprazol 2023-0 Yes [id number] 40mg Take 1 [facility] 40 mg EC 1-24 tablet by [facility] of tablet 00:00: mouth in [place] 00 the Medical morning Branch and 1 tablet in the evening. SUMAtriptan 3-0 Yes [id number] 50mg Take 1 [facility] 50 mg 1-24 tablet by [facility] of tablet 00:00: mouth as [place] 00 needed for Medical Migraine. Branch May repeat dose after >=2 hours, max dose 200mg in 24 hours. polyethylen 2023-0 Yes [id number] 17g Take 1 [facility] e glycol 1-24 Packet by [facility] of 3350 17 00:00: mouth in [place] gram powder 00 the Medical morning Branch and 1 Packet in the evening. lactulose 3-0 Yes [id number] 30mL Take 30 mL [facility] 10 gram/15 1-24 by mouth [facility] o f mL solution 00:00: [facility] and 30 mL Branch in the evening. ondansetron 3-0 Yes [id number] 4mg Take 1 [facility] 4 mg 1-24 tablet by it[facility] of disintegrat 00:00: mouth [place] ing tablet 00 every 8 Medica l (eight) Branch hours as needed for Nausea and Vomiting (N/V). sucralfate 3-0 Yes [id number] 1g Take 1 [facility] 1 gram 1-24 tablet by [facility] of tablet 00:00: mouth [place] 00 before Medical meals and Branch at bedtime. pantoprazol 3-0 Yes [id number] 40mg Take 1 [facility] 40 mg EC 1-24 tablet by [facility] of tablet 00:00: mouth in [place] 00 the Medical morning Branch and 1 tablet in the evening. SUMAtriptan 3-0 Yes [id number] 50mg Take 1 [facility] 50 mg 1-24 tablet by [facility] of tablet 00:00: mouth as [place] 00 needed for Medical Migraine. Branch May repeat dose after >=2 hours, max dose 200mg in 24 hours. polyethylen 2023-0 Yes [id number] 17g Take 1 [facility] e glycol 1-24 Packet by [facility] of 3350 17 00:00: mouth in [place] gram powder 00 the Medical morning Branch and 1 Packet in the evening. lactulose 2023-0 Yes [id number] 30mL Take 30 mL [facility] 10 gram/15 1-24 by mouth ity o f mL solution 00:00: in the morning Medical and 30 mL Branch in the evening. ondansetron 2023-0 Yes [id number] 4mg Take 1 [facility] 4 mg 1-24 tablet by [facility] of disintegrat 00:00: mouth [place] ing tablet 00 every 8 Medica l (eight) Branch hours as needed for Nausea and Vomiting (N/V). sucralfate 2023-0 Yes [id number] 1g Take 1 [facility] 1 gram 1-24 tablet by [facility] of tablet 00:00: mouth [place] 00 before Medical meals and Branch at bedtime. pantoprazol 3-0 Yes [id number] 40mg Take 1 [facility] 40 mg EC 1-24 tablet by [facility] of tablet 00:00: mouth in [place] 00 the Medical morning Branch and 1 tablet in the evening. SUMAtriptan 3-0 Yes [id number] 50mg Take 1 [facility] 50 mg 1-24 tablet by [facility] of tablet 00:00: mouth as 00 needed for Medical Migraine. Branch May repeat dose after >=2 hours, max dose 200mg in 24 hours. polyethylen 3-0 Yes [id number] 17g Take 1 [facility] e glycol 1-24 Packet by [facility] of 3350 17 00:00: mouth in [place] gram powder 00 the Medical morning Branch and 1 Packet in the evening. lactulose 2023-0 Yes [id number] 30mL Take 30 mL [facility] 10 gram/15 1-24 by mouth it[facility] o f mL solution 00:00: in the morning Medical and 30 mL Branch in the evening. ondansetron 2023-0 Yes [id number] 4mg Take 1 [facility] 4 mg 1-24 tablet by [facility] of disintegrat 00:00: mouth [place] ing tablet 00 every 8 Medica l (eight) Branch hours as needed for Nausea and Vomiting (N/V). sucralfate 2023-0 Yes [id number] 1g Take 1 [facility] 1 gram 1-24 tablet by [facility] of tablet 00:00: mouth [place] 00 before Medical meals and Branch at bedtime. pantoprazol 2023-0 Yes [id number] 40mg Take 1 [facility] 40 mg EC 1-24 tablet by [facility] of tablet 00:00: mouth in [place] 00 the Medical morning Branch and 1 tablet in the evening. SUMAtriptan 2023-0 Yes [id number] 50mg Take 1 [facility] 50 mg 1-24 tablet by [facility] of tablet 00:00: mouth as [place] 00 needed for Medical Migraine. Branch May repeat dose after >=2 hours, max dose 200mg in 24 hours. polyethylen 2023-0 Yes [id number] 17g Take 1 [facility] e glycol 1-24 Packet by it[facility] of 3350 17 00:00: mouth in [place] gram powder 00 the Medical morning Branch and 1 Packet in the evening. lactulose 2023-0 Yes [id number] 30mL Take 30 mL [facility] 10 gram/15 1-24 by mouth ity o f mL solution 00:00: in the [facility] morning Medical and 30 mL Branch in the evening. ondansetron 3-0 Yes [id number] 4mg Take 1 [facility] 4 mg 1-24 tablet by ity of disintegrat 00:00: mouth [place] ing tablet 00 every 8 Medica l (eight) Branch hours as needed for Nausea and Vomiting (N/V). sucralfate 2023-0 Yes [id number] 1g Take 1 [facility] 1 gram 1-24 tablet by [facility] of tablet 00:00: mouth [place] 00 before Medical meals and Branch at bedtime. pantoprazol 3-0 Yes [id number] 40mg Take 1 [facility] 40 mg EC 1-24 tablet by it[facility] of tablet 00:00: mouth in [place] 00 the Medical morning Branch and 1 tablet in the evening. SUMAtriptan 2023-0 Yes [id number] 50mg Take 1 [facility] 50 mg 1-24 tablet by it[facility] of tablet 00:00: mouth as [place] 00 needed for Medical Migraine. Branch May repeat dose after >=2 hours, max dose 200mg in 24 hours. polyethylen 2023-0 Yes [id number] 17g Take 1 [facility] e glycol 1-24 Packet by it[facility] of 3350 17 00:00: mouth in [place] gram powder 00 the Medical morning Branch and 1 Packet in the evening. lactulose 2023-0 Yes [id number] 30mL Take 30 mL [facility] 10 gram/15 1-24 by mouth ity o f mL solution 00:00: [facility] Medical and 30 mL Branch in the evening. ondansetron 2023-0 Yes [id number] 4mg Take 1 [facility] 4 mg 1-24 tablet by ity of disintegrat 00:00: mouth [place] ing tablet 00 every 8 Medica l (eight) Branch hours as needed for Nausea and Vomiting (N/V). sucralfate 2023-0 Yes [id number] 1g Take 1 [facility] 1 gram 1-24 tablet by [facility] of tablet 00:00: mouth [place] 00 before Medical meals and Branch at bedtime. pantoprazol 2023-0 Yes [id number] 40mg Take 1 [facility] 40 mg EC 1-24 tablet by [facility] of tablet 00:00: mouth in [place] 00 the Medical morning Branch and 1 tablet in the evening. SUMAtriptan 2023-0 Yes [id number] 50mg Take 1 [facility] 50 mg 1-24 tablet by it[facility] of tablet 00:00: mouth as [place] 00 needed for Medical Migraine. Branch May repeat dose after >=2 hours, max dose 200mg in 24 hours. polyethylen 2023-0 Yes [id number] 17g Take 1 [facility] e glycol 1-24 Packet by ity of 3350 17 00:00: mouth in [place] gram powder 00 the Medical morning Branch and 1 Packet in the evening. lactulose 2023-0 Yes [id number] 30mL Take 30 mL [facility] 10 gram/15 1-24 by mouth ity o f mL solution 00:00: in the [facility] 00 morning Medical and 30 mL Branch in the evening. ondansetron 2023-0 Yes [id number] 4mg Take 1 [facility] 4 mg 1-24 tablet by ity of disintegrat 00:00: mouth [place] ing tablet 00 every 8 Medica l (eight) Branch hours as needed for Nausea and Vomiting (N/V). sucralfate 2023-0 Yes [id number] 1g Take 1 [facility] 1 gram 1-24 tablet by ity of tablet 00:00: mouth [place] 00 before Medical meals and Branch at bedtime. pantoprazol 2023-0 Yes [id number] 40mg Take 1 [facility] 40 mg EC 1-24 tablet by ity of tablet 00:00: mouth in [place] 00 the Medical morning Branch and 1 tablet in the evening. SUMAtriptan 2023-0 Yes [id number] 50mg Take 1 [facility] 50 mg 1-24 tablet by ity of tablet 00:00: mouth as 00 needed for Medical Migraine. Branch May repeat dose after >=2 hours, max dose 200mg in 24 hours. polyethylen 2023-0 Yes [id number] 17g Take 1 [facility] e glycol 1-24 Packet by ity of 3350 17 00:00: mouth in [place] gram powder 00 the Medical morning Branch and 1 Packet in the evening. lactulose 2023-0 Yes [id number] 30mL Take 30 mL [facility] 10 gram/15 1-24 by mouth ity o f mL solution 00:00: in the morning Medical and 30 mL Branch in the evening. ondansetron 2023-0 Yes [id number] 4mg Take 1 [facility] 4 mg 1-24 tablet by ity of disintegrat 00:00: mouth [place] ing tablet 00 every 8 Medica l (eight) Branch hours as needed for Nausea and Vomiting (N/V). sucralfate 2023-0 Yes [id number] 1g Take 1 [facility] 1 gram 1-24 tablet by [facility] of tablet 00:00: mouth 00 before Medical meals and Branch at bedtime. pantoprazol 2023-0 Yes [id number] 40mg Take 1 [facility] 40 mg EC 1-24 tablet by [facility] of tablet 00:00: mouth in [place] 00 the Medical morning Branch and 1 tablet in the evening. SUMAtriptan 2023-0 Yes [id number] 50mg Take 1 [facility] 50 mg 1-24 tablet by it[facility] of tablet 00:00: mouth as 00 needed for Medical Migraine. Branch May repeat dose after >=2 hours, max dose 200mg in 24 hours. polyethylen 2023-0 Yes [id number] 17g Take 1 [facility] e glycol 1-24 Packet by ity of 3350 17 00:00: mouth in [place] gram powder 00 the Medical morning Branch and 1 Packet in the evening. lactulose 2023-0 Yes [id number] 30mL Take 30 mL [facility] 10 gram/15 1-24 by mouth ity o f mL solution 00:00: in the morning Medical and 30 mL Branch in the evening. ondansetron 2023-0 Yes [id number] 4mg Take 1 [facility] 4 mg 1-24 tablet by ity of disintegrat 00:00: mouth [place] ing tablet 00 every 8 Medica l (eight) Branch hours as needed for Nausea and Vomiting (N/V). sucralfate 2023-0 Yes [id number] 1g Take 1 [facility] 1 gram 1-24 tablet by it[facility] of tablet 00:00: mouth [place] 00 before Medical meals and Branch at bedtime. pantoprazol 3-0 Yes [id number] 40mg Take 1 [facility] 40 mg EC 1-24 tablet by it[facility] of tablet 00:00: mouth in [place] 00 the Medical morning Branch and 1 tablet in the evening. SUMAtriptan 2023-0 Yes [id number] 50mg Take 1 [facility] 50 mg 1-24 tablet by ity of tablet 00:00: mouth as [place] 00 needed for Medical Migraine. Branch May repeat dose after >=2 hours, max dose 200mg in 24 hours. polyethylen 2023-0 Yes [id number] 17g Take 1 [facility] e glycol 1-24 Packet by ity of 3350 17 00:00: mouth in [place] gram powder 00 the Medical morning Branch and 1 Packet in the evening. lactulose 3-0 Yes [id number] 30mL Take 30 mL [facility] 10 gram/15 1-24 by mouth [facility] o f mL solution 00:00: [place] morning Medical and 30 mL Branch in the evening. ondansetron 3-0 Yes [id number] 4mg Take 1 [facility] 4 mg 1-24 tablet by ity of disintegrat 00:00: mouth [place] ing tablet 00 every 8 Medica l (eight) Branch hours as needed for Nausea and Vomiting (N/V). sucralfate 3-0 Yes [id number] 1g Take 1 [facility] 1 gram 1-24 tablet by ity of tablet 00:00: mouth [place] 00 before Medical meals and Branch at bedtime. pantoprazol 3-0 Yes [id number] 40mg Take 1 [facility] e 40 mg EC 1-24 tablet by ity of tablet 00:00: mouth in [place] 00 the Medical morning Branch and 1 tablet in the evening. SUMAtriptan 3-0 Yes [id number] 50mg Take 1 [facility] 50 mg 1-24 tablet by ity of tablet 00:00: mouth as [place] 00 needed for Medical Migraine. Branch May repeat dose after >=2 hours, max dose 200mg in 24 hours. polyethylen 2023-0 Yes [id number] 17g Take 1 [facility] e glycol 1-24 Packet by ity of 3350 17 00:00: mouth in [place] gram powder 00 the Medical morning Branch and 1 Packet in the evening. lactulose 2023-0 Yes [id number] 30mL Take 30 mL [facility] 10 gram/15 1-24 by mouth ity o f mL solution 00:00: in the morning Medical and 30 mL Branch in the evening. ondansetron 2023-0 Yes [id number] 4mg Take 1 [facility] 4 mg 1-24 tablet by ity of disintegrat 00:00: mouth [place] ing tablet 00 every 8 Medica l (eight) Branch hours as needed for Nausea and Vomiting (N/V). sucralfate 2023-0 Yes [id number] 1g Take 1 [facility] 1 gram 1-24 tablet by ity of tablet 00:00: mouth [place] 00 before Medical meals and Branch at bedtime. pantoprazol 3-0 Yes [id number] 40mg Take 1 [facility] e 40 mg EC 1-24 tablet by ity of tablet 00:00: mouth in [place] 00 the Medical morning Branch and 1 tablet in the evening. SUMAtriptan 2022-0 Yes [id number] 50mg Take 1 [facility] 50 mg 1-24 tablet by ity of tablet 00:00: mouth as [place] 00 needed for Medical Migraine. Branch May repeat dose after >=2 hours, max dose 200mg in 24 hours. polyethylen 3-0 Yes [id number] 17g Take 1 [facility] e glycol 1-24 Packet by ity of 3350 17 00:00: mouth in [place] gram powder 00 the Medical morning Branch and 1 Packet in the evening. lactulose 3-0 Yes [id number] 30mL Take 30 mL [facility] 10 gram/15 1-24 by mouth ity o f mL solution 00:00: in the morning Medical and 30 mL Branch in the evening. ondansetron 2023-0 Yes [id number] 4mg Take 1 [facility] 4 mg 1-24 tablet by ity of disintegrat 00:00: mouth [place] ing tablet 00 every 8 Medica l (eight) Branch hours as needed for Nausea and Vomiting (N/V). sucralfate 2023-0 Yes [id number] 1g Take 1 [facility] 1 gram 1-24 tablet by ity of tablet 00:00: mouth [place] 00 before Medical meals and Branch at bedtime. pantoprazol 2023-0 Yes [id number] 40mg Take 1 [facility] e 40 mg EC 1-24 tablet by ity of tablet 00:00: mouth in [place] 00 the Medical morning Branch and 1 tablet in the evening. SUMAtriptan 3-0 Yes [id number] 50mg Take 1 [facility] 50 mg 1-24 tablet by ity of tablet 00:00: mouth as [place] 00 needed for Medical Migraine. Branch May repeat dose after >=2 hours, max dose 200mg in 24 hours. polyethylen 2023-0 Yes [id number] 17g Take 1 [facility] e glycol 1-24 Packet by ity of 3350 17 00:00: mouth in [place] gram powder 00 the Medical morning Branch and 1 Packet in the evening. lactulose 3-0 Yes [id number] 30mL Take 30 mL [facility] 10 gram/15 1-24 by mouth ity o f mL solution 00:00: in the [facility] morning Medical and 30 mL Branch in the evening. ondansetron 3-0 Yes [id number] 4mg Take 1 [facility] 4 mg 1-24 tablet by ity of disintegrat 00:00: mouth [place] ing tablet 00 every 8 Medica l (eight) Branch hours as needed for Nausea and Vomiting (N/V). sucralfate 3-0 Yes [id number] 1g Take 1 [facility] 1 gram 1-24 tablet by ity of tablet 00:00: mouth [place] 00 before Medical meals and Branch at bedtime. pantoprazol 3-0 Yes [id number] 40mg Take 1 [facility] e 40 mg EC 1-24 tablet by ity of tablet 00:00: mouth in [place] 00 the Medical morning Branch and 1 tablet in the evening. SUMAtriptan 3-0 Yes [id number] 50mg Take 1 [facility] 50 mg 1-24 tablet by ity of tablet 00:00: mouth as [place] 00 needed for Medical Migraine. Branch May repeat dose after >=2 hours, max dose 200mg in 24 hours. polyethylen 3-0 Yes [id number] 17g Take 1 [facility] e glycol 1-24 Packet by ity of 3350 17 00:00: mouth in [place] gram powder 00 the Medical morning Branch and 1 Packet in the evening. lactulose 2023-0 Yes [id number] 30mL Take 30 mL [facility] 10 gram/15 1-24 by mouth ity o f mL solution 00:00: in the [facility] morning Medical and 30 mL Branch in the evening. ondansetron 2023-0 Yes [id number] 4mg Take 1 [facility] 4 mg 1-24 tablet by ity of disintegrat 00:00: mouth [place] ing tablet 00 every 8 Medica l (eight) Branch hours as needed for Nausea and Vomiting (N/V). sucralfate 2023-0 Yes [id number] 1g Take 1 [facility] 1 gram 1-24 tablet by ity of tablet 00:00: mouth [place] 00 before Medical meals and Branch at bedtime. pantoprazol 2023-0 Yes [id number] 40mg Take 1 [facility] e 40 mg EC 1-24 tablet by ity of tablet 00:00: mouth in [place] 00 the Medical morning Branch and 1 tablet in the evening. SUMAtriptan 2023-0 Yes [id number] 50mg Take 1 [facility] 50 mg 1-24 tablet by ity of tablet 00:00: mouth as [place] 00 needed for Medical Migraine. Branch May repeat dose after >=2 hours, max dose 200mg in 24 hours. polyethylen 2023-0 Yes [id number] 17g Take 1 [facility] e glycol 1-24 Packet by ity of 3350 17 00:00: mouth in [place] gram powder 00 the Medical morning Branch and 1 Packet in the evening. lactulose 2023-0 Yes [id number] 30mL Take 30 mL [facility] 10 gram/15 1-24 by mouth ity o f mL solution 00:00: [facility] Medical and 30 mL Branch in the evening. ondansetron 3-0 Yes [id number] 4mg Take 1 [facility] 4 mg 1-24 tablet by ity of disintegrat 00:00: mouth [place] ing tablet 00 every 8 Medica l (eight) Branch hours as needed for Nausea and Vomiting (N/V). sucralfate 2023-0 Yes [id number] 1g Take 1 [facility] 1 gram 1-24 tablet by ity of tablet 00:00: mouth [place] 00 before Medical meals and Branch at bedtime. pantoprazol 2023-0 Yes [id number] 40mg Take 1 [facility] e 40 mg EC 1-24 tablet by ity of tablet 00:00: mouth in [place] 00 the Medical morning Branch and 1 tablet in the evening. SUMAtriptan 2023-0 Yes [id number] 50mg Take 1 [facility] 50 mg 1-24 tablet by ity of tablet 00:00: mouth as [place] 00 needed for Medical Migraine. Branch May repeat dose after >=2 hours, max dose 200mg in 24 hours. polyethylen 2023-0 Yes [id number] 17g Take 1 [facility] e glycol 1-24 Packet by ity of 3350 17 00:00: mouth in [place] gram powder 00 the Medical morning Branch and 1 Packet in the evening. lactulose 2023-0 Yes [id number] 30mL Take 30 mL [facility] 10 gram/15 1-24 by mouth ity o f mL solution 00:00: in the morning Medical and 30 mL Branch in the evening. ondansetron 2023-0 Yes [id number] 4mg Take 1 [facility] 4 mg 1-24 tablet by ity of disintegrat 00:00: mouth [place] ing tablet 00 every 8 Medica l (eight) Branch hours as needed for Nausea and Vomiting (N/V). sucralfate 2023-0 Yes [id number] 1g Take 1 [facility] 1 gram 1-24 tablet by ity of tablet 00:00: mouth 00 before Medical meals and Branch at bedtime. pantoprazol 2023-0 Yes [id number] 40mg Take 1 [facility] e 40 mg EC 1-24 tablet by ity of tablet 00:00: mouth in [place] the Medical morning Branch and 1 tablet in the evening. SUMAtriptan 2023-0 Yes [id number] 50mg Take 1 [facility] 50 mg 1-24 tablet by ity of tablet 00:00: mouth as 00 needed for Medical Migraine. Branch May repeat dose after >=2 hours, max dose 200mg in 24 hours. polyethylen 2023-0 Yes [id number] 17g Take 1 [facility] e glycol 1-24 Packet by ity of 3350 17 00:00: mouth in [place] gram powder 00 the Medical morning Branch and 1 Packet in the evening. lactulose 2023-0 Yes [id number] 30mL Take 30 mL [facility] 10 gram/15 1-24 by mouth ity o f mL solution 00:00: in the morning Medical and 30 mL Branch in the evening. ondansetron 2023-0 Yes [id number] 4mg Take 1 [facility] 4 mg 1-24 tablet by ity of disintegrat 00:00: mouth [place] ing tablet 00 every 8 Medica l (eight) Branch hours as needed for Nausea and Vomiting (N/V). sucralfate 3-0 Yes [id number] 1g Take 1 [facility] 1 gram 1-24 tablet by ity of tablet 00:00: mouth [place] 00 before Medical meals and Branch at bedtime. pantoprazol 2023-0 Yes [id number] 40mg Take 1 [facility] e 40 mg EC 1-24 tablet by ity of tablet 00:00: mouth in [place] 00 the Medical morning Branch and 1 tablet in the evening. SUMAtriptan 2023-0 Yes [id number] 50mg Take 1 [facility] 50 mg 1-24 tablet by ity of tablet 00:00: mouth as [place] 00 needed for Medical Migraine. Branch May repeat dose after >=2 hours, max dose 200mg in 24 hours. polyethylen 2023-0 Yes [id number] 17g Take 1 [facility] e glycol 1-24 Packet by ity of 3350 17 00:00: mouth in [place] gram powder 00 the Medical morning Branch and 1 Packet in the evening. lactulose 3-0 Yes [id number] 30mL Take 30 mL [facility] 10 gram/15 1-24 by mouth ity o f mL solution 00:00: [facility] Medical and 30 mL Branch in the evening. ondansetron 3-0 Yes [id number] 4mg Take 1 [facility] 4 mg 1-24 tablet by ity of disintegrat 00:00: mouth [place] ing tablet 00 every 8 Medica l (eight) Branch hours as needed for Nausea and Vomiting (N/V). sucralfate 3-0 Yes [id number] 1g Take 1 [facility] 1 gram 1-24 tablet by ity of tablet 00:00: mouth [place] 00 before Medical meals and Branch at bedtime. pantoprazol 3-0 Yes [id number] 40mg Take 1 [facility] e 40 mg EC 1-24 tablet by ity of tablet 00:00: mouth in [place] 00 the Medical morning Branch and 1 tablet in the evening. SUMAtriptan 3-0 Yes [id number] 50mg Take 1 [facility] 50 mg 1-24 tablet by ity of tablet 00:00: mouth as [place] 00 needed for Medical Migraine. Branch May repeat dose after >=2 hours, max dose 200mg in 24 hours. polyethylen 2023-0 Yes [id number] 17g Take 1 [facility] e glycol 1-24 Packet by ity of 3350 17 00:00: mouth in [place] gram powder 00 the Medical morning Branch and 1 Packet in the evening. lactulose 2023-0 Yes [id number] 30mL Take 30 mL [facility] 10 gram/15 1-24 by mouth ity o f mL solution 00:00: in the morning Medical and 30 mL Branch in the evening. ondansetron 2023-0 Yes [id number] 4mg Take 1 [facility] 4 mg 1-24 tablet by ity of disintegrat 00:00: mouth [place] ing tablet 00 every 8 Medica l (eight) Branch hours as needed for Nausea and Vomiting (N/V). sucralfate 2023-0 Yes [id number] 1g Take 1 [facility] 1 gram 1-24 tablet by ity of tablet 00:00: mouth 00 before Medical meals and Branch at bedtime. pantoprazol 2023-0 Yes [id number] 40mg Take 1 [facility] e 40 mg EC 1-24 tablet by ity of tablet 00:00: mouth in [place] 00 the Medical morning Branch and 1 tablet in the evening. SUMAtriptan 3-0 Yes [id number] 50mg Take 1 [facility] 50 mg 1-24 tablet by ity of tablet 00:00: mouth as needed for Medical Migraine. Branch May repeat dose after >=2 hours, max dose 200mg in 24 hours. polyethylen 2023-0 Yes [id number] 17g Take 1 [facility] e glycol 1-24 Packet by ity of 3350 17 00:00: mouth in [place] gram powder 00 the Medical morning Branch and 1 Packet in the evening. lactulose 2023-0 Yes [id number] 30mL Take 30 mL [facility] 10 gram/15 1-24 by mouth ity o f mL solution 00:00: in the morning Medical and 30 mL Branch in the evening. ondansetron 2023-0 Yes [id number] 4mg Take 1 [facility] 4 mg 1-24 tablet by ity of disintegrat 00:00: mouth [place] ing tablet 00 every 8 Medica l (eight) Branch hours as needed for Nausea and Vomiting (N/V). sucralfate 2023-0 Yes [id number] 1g Take 1 [facility] 1 gram 1-24 tablet by ity of tablet 00:00: mouth [place] 00 before Medical meals and Branch at bedtime. pantoprazol 2023-0 Yes [id number] 40mg Take 1 [facility] e 40 mg EC 1-24 tablet by ity of tablet 00:00: mouth in [place] 00 the Medical morning Branch and 1 tablet in the evening. SUMAtriptan 2023-0 Yes [id number] 50mg Take 1 [facility] 50 mg 1-24 tablet by ity of tablet 00:00: mouth as [place] needed for Medical Migraine. Branch May repeat dose after >=2 hours, max dose 200mg in 24 hours. polyethylen 2023-0 Yes [id number] 17g Take 1 [facility] e glycol 1-24 Packet by ity of 3350 17 00:00: mouth in [place] gram powder 00 the Medical morning Branch and 1 Packet in the evening. lactulose 2023-0 Yes [id number] 30mL Take 30 mL [facility] 10 gram/15 1-24 by mouth ity o f mL solution 00:00: in the [facility] morning Medical and 30 mL Branch in the evening. ondansetron 3-0 Yes [id number] 4mg Take 1 [facility] 4 mg 1-24 tablet by ity of disintegrat 00:00: mouth [place] ing tablet 00 every 8 Medica l (eight) Branch hours as needed for Nausea and Vomiting (N/V). sucralfate 3-0 Yes [id number] 1g Take 1 [facility] 1 gram 1-24 tablet by ity of tablet 00:00: mouth [place] 00 before Medical meals and Branch at bedtime. pantoprazol 3-0 Yes [id number] 40mg Take 1 [facility] e 40 mg EC 1-24 tablet by ity of tablet 00:00: mouth in [place] 00 the Medical morning Branch and 1 tablet in the evening. SUMAtriptan 3-0 Yes [id number] 50mg Take 1 [facility] 50 mg 1-24 tablet by ity of tablet 00:00: mouth as [place] 00 needed for Medical Migraine. Branch May repeat dose after >=2 hours, max dose 200mg in 24 hours. polyethylen 2023-0 Yes [id number] 17g Take 1 [facility] e glycol 1-24 Packet by ity of 3350 17 00:00: mouth in [place] gram powder 00 the Medical morning Branch and 1 Packet in the evening. lactulose 2023-0 Yes [id number] 30mL Take 30 mL [facility] 10 gram/15 1-24 by mouth ity o f mL solution 00:00: in the [facility] morning Medical and 30 mL Branch in the evening. ondansetron 2022-0 Yes [id number] 4mg Take 1 [facility] 4 mg 1-24 tablet by ity of disintegrat 00:00: mouth [place] ing tablet 00 every 8 Medica l (eight) Branch hours as needed for Nausea and Vomiting (N/V). sucralfate 2023-0 Yes [id number] 1g Take 1 [facility] 1 gram 1-24 tablet by ity of tablet 00:00: mouth [place] 00 before Medical meals and Branch at bedtime. pantoprazol 2023-0 Yes [id number] 40mg Take 1 [facility] e 40 mg EC 1-24 tablet by ity of tablet 00:00: mouth in [place] 00 the Medical morning Branch and 1 tablet in the evening. SUMAtriptan 2023-0 Yes [id number] 50mg Take 1 [facility] 50 mg 1-24 tablet by ity of tablet 00:00: mouth as [place] 00 needed for Medical Migraine. Branch May repeat dose after >=2 hours, max dose 200mg in 24 hours. polyethylen 3-0 Yes [id number] 17g Take 1 [facility] e glycol 1-24 Packet by ity of 3350 17 00:00: mouth in [place] gram powder 00 the Medical morning Branch and 1 Packet in the evening. lactulose 3-0 Yes [id number] 30mL Take 30 mL [facility] 10 gram/15 1-24 by mouth ity o f mL solution 00:00: in the [facility] 00 morning Medical and 30 mL Branch in the evening. ondansetron 3-0 Yes [id number] 4mg Take 1 [facility] 4 mg 1-24 tablet by [facility] disintegrat 00:00: mouth [place] ing tablet 00 every 8 Medica l (eight) Branch hours as needed for Nausea and Vomiting (N/V). sucralfate 2023-0 Yes [id number] 1g Take 1 [facility] 1 gram 1-24 tablet by [facility] of tablet 00:00: mouth [place] 00 before Medical meals and Branch at bedtime. pantoprazol 2023-0 Yes [id number] 40mg Take 1 [facility] e 40 mg EC 1-24 tablet by [facility] of tablet 00:00: mouth in [place] 00 the Medical morning Branch and 1 tablet in the evening. SUMAtriptan 2023-0 Yes [id number] 50mg Take 1 [facility] 50 mg 1-24 tablet by [facility] of tablet 00:00: mouth as 00 needed for Medical Migraine. Branch May repeat dose after >=2 hours, max dose 200mg in 24 hours. polyethylen 2023-0 Yes [id number] 17g Take 1 [facility] e glycol 1-24 Packet by ity of 3350 17 00:00: mouth in [place] gram powder 00 the Medical morning Branch and 1 Packet in the evening. lactulose 2023-0 Yes [id number] 30mL Take 30 mL [facility] 10 gram/15 1-24 by mouth ity o f mL solution 00:00: in the morning Medical and 30 mL Branch in the evening. ondansetron 2023-0 Yes [id number] 4mg Take 1 [facility] 4 mg 1-24 tablet by [facility] of disintegrat 00:00: mouth [place] ing tablet 00 every 8 Medica l (eight) Branch hours as needed for Nausea and Vomiting (N/V). sucralfate 2023-0 Yes [id number] 1g Take 1 [facility] 1 gram 1-24 tablet by [facility] of tablet 00:00: mouth 00 before Medical meals and Branch at bedtime. pantoprazol 2023-0 Yes [id number] 40mg Take 1 [facility] e 40 mg EC 1-24 tablet by [facility] of tablet 00:00: mouth in [place] the Medical morning Branch and 1 tablet in the evening. SUMAtriptan 2023-0 Yes [id number] 50mg Take 1 [facility] 50 mg 1-24 tablet by [facility] of tablet 00:00: mouth as 00 needed for Medical Migraine. Branch May repeat dose after >=2 hours, max dose 200mg in 24 hours. polyethylen 2023-0 Yes [id number] 17g Take 1 [facility] e glycol 1-24 Packet by [facility] of 3350 17 00:00: mouth in [place] gram powder 00 the Medical morning Branch and 1 Packet in the evening. lactulose 2023-0 Yes [id number] 30mL Take 30 mL [facility] 10 gram/15 1-24 by mouth ity o f mL solution 00:00: in the morning Medical and 30 mL Branch in the evening. ondansetron 2023-0 Yes [id number] 4mg Take 1 [facility] 4 mg 1-24 tablet by [facility] of disintegrat 00:00: mouth [place] ing tablet 00 every 8 Medica l (eight) Branch hours as needed for Nausea and Vomiting (N/V). sucralfate 2023-0 Yes [id number] 1g Take 1 [facility] 1 gram 1-24 tablet by [facility] of tablet 00:00: mouth [place] 00 before Medical meals and Branch at bedtime. pantoprazol 2023-0 Yes [id number] 40mg Take 1 [facility] e 40 mg EC 1-24 tablet by [facility] of tablet 00:00: mouth in [place] 00 the Medical morning Branch and 1 tablet in the evening. SUMAtriptan 2023-0 Yes [id number] 50mg Take 1 [facility] 50 mg 1-24 tablet by it[facility] of tablet 00:00: mouth as [place] 00 needed for Medical Migraine. Branch May repeat dose after >=2 hours, max dose 200mg in 24 hours. polyethylen 2023-0 Yes [id number] 17g Take 1 [facility] e glycol 1-24 Packet by it[facility] of 3350 17 00:00: mouth in [place] gram powder 00 the Medical morning Branch and 1 Packet in the evening. lactulose 2023-0 Yes [id number] 30mL Take 30 mL [facility] 10 gram/15 1-24 by mouth [facility] o f mL solution 00:00: [facility] and 30 mL Branch in the evening. ondansetron 3-0 Yes [id number] 4mg Take 1 [facility] 4 mg 1-24 tablet by ity of disintegrat 00:00: mouth [place] ing tablet 00 every 8 Medica l (eight) Branch hours as needed for Nausea and Vomiting (N/V). sucralfate 3-0 Yes [id number] 1g Take 1 [facility] 1 gram 1-24 tablet by ity of tablet 00:00: mouth [place] 00 before Medical meals and Branch at bedtime. pantoprazol 3-0 Yes [id number] 40mg Take 1 [facility] e 40 mg EC 1-24 tablet by ity of tablet 00:00: mouth in [place] 00 the Medical morning Branch and 1 tablet in the evening. SUMAtriptan 2023-0 Yes [id number] 50mg Take 1 [facility] 50 mg 1-24 tablet by ity of tablet 00:00: mouth as [place] 00 needed for Medical Migraine. Branch May repeat dose after >=2 hours, max dose 200mg in 24 hours. polyethylen 2023-0 Yes [id number] 17g Take 1 [facility] e glycol 1-24 Packet by ity of 3350 17 00:00: mouth in [place] gram powder 00 the Medical morning Branch and 1 Packet in the evening. lactulose 2023-0 Yes [id number] 30mL Take 30 mL [facility] 10 gram/15 1-24 by mouth ity o f mL solution 00:00: in the morning Medical and 30 mL Branch in the evening. ondansetron 2023-0 Yes [id number] 4mg Take 1 [facility] 4 mg 1-24 tablet by it[facility] of disintegrat 00:00: mouth [place] ing tablet 00 every 8 Medica l (eight) Branch hours as needed for Nausea and Vomiting (N/V). sucralfate 2023-0 Yes [id number] 1g Take 1 [facility] 1 gram 1-24 tablet by ity of tablet 00:00: mouth [place] 00 before Medical meals and Branch at bedtime. pantoprazol 2023-0 Yes [id number] 40mg Take 1 [facility] e 40 mg EC 1-24 tablet by ity of tablet 00:00: mouth in [place] 00 the Medical morning Branch and 1 tablet in the evening. SUMAtriptan 3-0 Yes [id number] 50mg Take 1 [facility] 50 mg 1-24 tablet by ity of tablet 00:00: mouth as [place] 00 needed for Medical Migraine. Branch May repeat dose after >=2 hours, max dose 200mg in 24 hours. polyethylen 2023-0 Yes [id number] 17g Take 1 [facility] e glycol 1-24 Packet by ity of 3350 17 00:00: mouth in [place] gram powder 00 the Medical morning Branch and 1 Packet in the evening. lactulose 2023-0 Yes [id number] 30mL Take 30 mL [facility] 10 gram/15 1-24 by mouth ity o f mL solution 00:00: in the [facility] morning Medical and 30 mL Branch in the evening. ondansetron 2023-0 Yes [id number] 4mg Take 1 [facility] 4 mg 1-24 tablet by ity of disintegrat 00:00: mouth [place] ing tablet 00 every 8 Medica l (eight) Branch hours as needed for Nausea and Vomiting (N/V). sucralfate 2023-0 Yes [id number] 1g Take 1 [facility] 1 gram 1-24 tablet by ity of tablet 00:00: mouth [place] 00 before Medical meals and Branch at bedtime. pantoprazol 2023-0 Yes [id number] 40mg Take 1 [facility] e 40 mg EC 1-24 tablet by ity of tablet 00:00: mouth in [place] 00 the Medical morning Branch and 1 tablet in the evening. SUMAtriptan 2023-0 Yes [id number] 50mg Take 1 [facility] 50 mg 1-24 tablet by ity of tablet 00:00: mouth as [place] [address] needed for Medical Migraine. Branch May repeat dose after >=2 hours, max dose 200mg in 24 hours. polyethylen 2023-0 Yes [id number] 17g Take 1 [facility] e glycol 1-24 Packet by ity of 3350 17 00:00: mouth in [place] gram powder 00 the Medical morning Branch and 1 Packet in the evening. lactulose 2023-0 Yes [id number] 30mL Take 30 mL [facility] 10 gram/15 1-24 by mouth ity o f mL solution 00:00: in the [facility] morning Medical and 30 mL Branch in the evening. ondansetron 3-0 Yes [id number] 4mg Take 1 [facility] 4 mg 1-24 tablet by ity of disintegrat 00:00: mouth [place] ing tablet 00 every 8 Medica l (eight) Branch hours as needed for Nausea and Vomiting (N/V). sucralfate 3-0 Yes [id number] 1g Take 1 [facility] 1 gram 1-24 tablet by ity of tablet 00:00: mouth [place] 00 before Medical meals and Branch at bedtime. pantoprazol 3-0 Yes [id number] 40mg Take 1 [facility] e 40 mg EC 1-24 tablet by ity of tablet 00:00: mouth in [place] 00 the Medical morning Branch and 1 tablet in the evening. SUMAtriptan 3-0 Yes [id number] 50mg Take 1 [facility] 50 mg 1-24 tablet by ity of tablet 00:00: mouth as [place] [address] needed for Medical Migraine. Branch May repeat dose after >=2 hours, max dose 200mg in 24 hours. polyethylen 2023-0 Yes [id number] 17g Take 1 [facility] e glycol 1-24 Packet by ity of 3350 17 00:00: mouth in [place] gram powder 00 the Medical morning Branch and 1 Packet in the evening. lactulose 2023-0 Yes [id number] 30mL Take 30 mL [facility] 10 gram/15 1-24 by mouth ity o f mL solution 00:00: in the [facility] morning Medical and 30 mL Branch in the evening. ondansetron 2023-0 Yes [id number] 4mg Take 1 [facility] 4 mg 1-24 tablet by ity of disintegrat 00:00: mouth [place] ing tablet 00 every 8 Medica l (eight) Branch hours as needed for Nausea and Vomiting (N/V). sucralfate 2023-0 Yes [id number] 1g Take 1 [facility] 1 gram 1-24 tablet by ity of tablet 00:00: mouth [place] 00 before Medical meals and Branch at bedtime. pantoprazol 2023-0 Yes [id number] 40mg Take 1 [facility] e 40 mg EC 1-24 tablet by ity of tablet 00:00: mouth in [place] the Medical morning Branch and 1 tablet in the evening. SUMAtriptan 2023-0 Yes [id number] 50mg Take 1 [facility] 50 mg 1-24 tablet by ity of tablet 00:00: mouth as [place] [address] needed for Medical Migraine. Branch May repeat dose after >=2 hours, max dose 200mg in 24 hours. polyethylen 2023-0 Yes [id number] 17g Take 1 [facility] e glycol 1-24 Packet by ity of 3350 17 00:00: mouth in [place] gram powder 00 the Medical morning Branch and 1 Packet in the evening. lactulose 2023-0 Yes [id number] 30mL Take 30 mL [facility] 10 gram/15 1-24 by mouth ity o f mL solution 00:00: in the [facility] morning Medical and 30 mL Branch in the evening. ondansetron 3-0 Yes [id number] 4mg Take 1 [facility] 4 mg 1-24 tablet by ity of disintegrat 00:00: mouth [place] ing tablet 00 every 8 Medica l (eight) Branch hours as needed for Nausea and Vomiting (N/V). sucralfate 2023-0 Yes [id number] 1g Take 1 [facility] 1 gram 1-24 tablet by ity of tablet 00:00: mouth [place] 00 before Medical meals and Branch at bedtime. pantoprazol 2023-0 Yes [id number] 40mg Take 1 [facility] e 40 mg EC 1-24 tablet by ity of tablet 00:00: mouth in [place] 00 the Medical morning Branch and 1 tablet in the evening. SUMAtriptan 2023-0 Yes [id number] 50mg Take 1 [facility] 50 mg 1-24 tablet by ity of tablet 00:00: mouth as [place] [address] needed for Medical Migraine. Branch May repeat dose after >=2 hours, max dose 200mg in 24 hours. polyethylen 2023-0 Yes [id number] 17g Take 1 [facility] e glycol 1-24 Packet by ity of 3350 17 00:00: mouth in [place] gram powder 00 the Medical morning Branch and 1 Packet in the evening. lactulose 2023-0 Yes [id number] 30mL Take 30 mL [facility] 10 gram/15 1-24 by mouth ity o f mL solution 00:00: in the morning Medical and 30 mL Branch in the evening. ondansetron 2023-0 Yes [id number] 4mg Take 1 [facility] 4 mg 1-24 tablet by ity of disintegrat 00:00: mouth [place] ing tablet 00 every 8 Medica l (eight) Branch hours as needed for Nausea and Vomiting (N/V). sucralfate 2023-0 Yes [id number] 1g Take 1 [facility] 1 gram 1-24 tablet by ity of tablet 00:00: mouth 00 before Medical meals and Branch at bedtime. pantoprazol 2023-0 Yes [id number] 40mg Take 1 [facility] e 40 mg EC 1-24 tablet by ity of tablet 00:00: mouth in [place] the Medical morning Branch and 1 tablet in the evening. SUMAtriptan 2023-0 Yes [id number] 50mg Take 1 [facility] 50 mg 1-24 tablet by ity of tablet 00:00: mouth as [place] 00 needed for Medical Migraine. Branch May repeat dose after >=2 hours, max dose 200mg in 24 hours. polyethylen 2023-0 Yes [id number] 17g Take 1 [facility] e glycol 1-24 Packet by ity of 3350 17 00:00: mouth in [place] gram powder 00 the Medical morning Branch and 1 Packet in the evening. lactulose 2023-0 Yes [id number] 30mL Take 30 mL [facility] 10 gram/15 1-24 by mouth ity o f mL solution 00:00: in the morning Medical and 30 mL Branch in the evening. ondansetron 2023-0 Yes [id number] 4mg Take 1 [facility] 4 mg 1-24 tablet by ity of disintegrat 00:00: mouth [place] ing tablet 00 every 8 Medica l (eight) Branch hours as needed for Nausea and Vomiting (N/V). sucralfate 2023-0 Yes [id number] 1g Take 1 [facility] 1 gram 1-24 tablet by ity of tablet 00:00: mouth [place] 00 before Medical meals and Branch at bedtime. pantoprazol 3-0 Yes [id number] 40mg Take 1 [facility] e 40 mg EC 1-24 tablet by ity of tablet 00:00: mouth in [place] 00 the Medical morning Branch and 1 tablet in the evening. SUMAtriptan 3-0 Yes [id number] 50mg Take 1 [facility] 50 mg 1-24 tablet by ity of tablet 00:00: mouth as [place] 00 needed for Medical Migraine. Branch May repeat dose after >=2 hours, max dose 200mg in 24 hours. polyethylen 3-0 Yes [id number] 17g Take 1 [facility] e glycol 1-24 Packet by ity of 3350 17 00:00: mouth in [place] gram powder 00 the Medical morning Branch and 1 Packet in the evening. lactulose 3-0 Yes [id number] 30mL Take 30 mL [facility] 10 gram/15 1-24 by mouth ity o f mL solution 00:00: [facility] Medical and 30 mL Branch in the evening. ondansetron 2022-0 Yes [id number] 4mg Take 1 [facility] 4 mg 1-24 tablet by ity of disintegrat 00:00: mouth [place] ing tablet 00 every 8 Medica l (eight) Branch hours as needed for Nausea and Vomiting (N/V). sucralfate 2022-0 Yes [id number] 1g Take 1 [facility] 1 gram 1-24 tablet by ity of tablet 00:00: mouth [place] 00 before Medical meals and Branch at bedtime. pantoprazol 3-0 Yes [id number] 40mg Take 1 [facility] e 40 mg EC 1-24 tablet by ity of tablet 00:00: mouth in [place] 00 the Medical morning Branch and 1 tablet in the evening. SUMAtriptan 3-0 Yes [id number] 50mg Take 1 [facility] 50 mg 1-24 tablet by ity of tablet 00:00: mouth as [place] 00 needed for Medical Migraine. Branch May repeat dose after >=2 hours, max dose 200mg in 24 hours. polyethylen 2023-0 Yes [id number] 17g Take 1 [facility] e glycol 1-24 Packet by ity of 3350 17 00:00: mouth in [place] gram powder 00 the Medical morning Branch and 1 Packet in the evening. lactulose 2023-0 Yes [id number] 30mL Take 30 mL [facility] 10 gram/15 1-24 by mouth ity o f mL solution 00:00: in the morning Medical and 30 mL Branch in the evening. ondansetron 2023-0 Yes [id number] 4mg Take 1 [facility] 4 mg 1-24 tablet by ity of disintegrat 00:00: mouth [place] ing tablet 00 every 8 Medica l (eight) Branch hours as needed for Nausea and Vomiting (N/V). sucralfate 2023-0 Yes [id number] 1g Take 1 [facility] 1 gram 1-24 tablet by ity of tablet 00:00: mouth [place] 00 before Medical meals and Branch at bedtime. pantoprazol 2023-0 Yes [id number] 40mg Take 1 [facility] e 40 mg EC 1-24 tablet by ity of tablet 00:00: mouth in [place] 00 the Medical morning Branch and 1 tablet in the evening. SUMAtriptan 3-0 Yes [id number] 50mg Take 1 [facility] 50 mg 1-24 tablet by ity of tablet 00:00: mouth as 00 needed for Medical Migraine. Branch May repeat dose after >=2 hours, max dose 200mg in 24 hours. polyethylen 3-0 Yes [id number] 17g Take 1 [facility] e glycol 1-24 Packet by ity of 3350 17 00:00: mouth in [place] gram powder 00 the Medical morning Branch and 1 Packet in the evening. lactulose 3-0 Yes [id number] 30mL Take 30 mL [facility] 10 gram/15 1-24 by mouth ity o f mL solution 00:00: in the morning Medical and 30 mL Branch in the evening. ondansetron 3-0 Yes [id number] 4mg Take 1 [facility] 4 mg 1-24 tablet by ity of disintegrat 00:00: mouth [place] ing tablet 00 every 8 Medica l (eight) Branch hours as needed for Nausea and Vomiting (N/V). sucralfate 2023-0 Yes [id number] 1g Take 1 [facility] 1 gram 1-24 tablet by ity of tablet 00:00: mouth [place] 00 before Medical meals and Branch at bedtime. pantoprazol 2023-0 Yes [id number] 40mg Take 1 [facility] e 40 mg EC 1-24 tablet by ity of tablet 00:00: mouth in [place] 00 the Medical morning Branch and 1 tablet in the evening. SUMAtriptan 2023-0 Yes [id number] 50mg Take 1 [facility] 50 mg 1-24 tablet by ity of tablet 00:00: mouth as [place] needed for Medical Migraine. Branch May repeat dose after >=2 hours, max dose 200mg in 24 hours. polyethylen 2023-0 Yes [id number] 17g Take 1 [facility] e glycol 1-24 Packet by ity of 3350 17 00:00: mouth in [place] gram powder 00 the Medical morning Branch and 1 Packet in the evening. lactulose 2023-0 Yes [id number] 30mL Take 30 mL [facility] 10 gram/15 1-24 by mouth ity o f mL solution 00:00: in the [facility] morning Medical and 30 mL Branch in the evening. ondansetron 3-0 Yes [id number] 4mg Take 1 [facility] 4 mg 1-24 tablet by ity of disintegrat 00:00: mouth [place] ing tablet 00 every 8 Medica l (eight) Branch hours as needed for Nausea and Vomiting (N/V). sucralfate 3-0 Yes [id number] 1g Take 1 [facility] 1 gram 1-24 tablet by ity of tablet 00:00: mouth [place] 00 before Medical meals and Branch at bedtime. pantoprazol 2023-0 Yes [id number] 40mg Take 1 [facility] e 40 mg EC 1-24 tablet by ity of tablet 00:00: mouth in [place] 00 the Medical morning Branch and 1 tablet in the evening. SUMAtriptan 2023-0 Yes [id number] 50mg Take 1 [facility] 50 mg 1-24 tablet by ity of tablet 00:00: mouth as [place] [address] needed for Medical Migraine. Branch May repeat dose after >=2 hours, max dose 200mg in 24 hours. polyethylen 2023-0 Yes [id number] 17g Take 1 [facility] e glycol 1-24 Packet by ity of 3350 17 00:00: mouth in [place] gram powder 00 the Medical morning Branch and 1 Packet in the evening. lactulose 2023-0 Yes [id number] 30mL Take 30 mL [facility] 10 gram/15 1-24 by mouth ity o f mL solution 00:00: in the [facility] morning Medical and 30 mL Branch in the evening. ondansetron 2023-0 Yes [id number] 4mg Take 1 [facility] 4 mg 1-24 tablet by ity of disintegrat 00:00: mouth [place] ing tablet 00 every 8 Medica l (eight) Branch hours as needed for Nausea and Vomiting (N/V). sucralfate 3-0 Yes [id number] 1g Take 1 [facility] 1 gram 1-24 tablet by ity of tablet 00:00: mouth [place] 00 before Medical meals and Branch at bedtime. pantoprazol 3-0 Yes [id number] 40mg Take 1 [facility] e 40 mg EC 1-24 tablet by ity of tablet 00:00: mouth in [place] the Medical morning Branch and 1 tablet in the evening. SUMAtriptan 2022-0 Yes [id number] 50mg Take 1 [facility] 50 mg 1-24 tablet by ity of tablet 00:00: mouth as [place] needed for Medical Migraine. Branch May repeat dose after >=2 hours, max dose 200mg in 24 hours. polyethylen 3-0 Yes [id number] 17g Take 1 [facility] e glycol 1-24 Packet by ity of 3350 17 00:00: mouth in [place] gram powder 00 the Medical morning Branch and 1 Packet in the evening. lactulose 3-0 Yes [id number] 30mL Take 30 mL [facility] 10 gram/15 1-24 by mouth ity o f mL solution 00:00: in the [facility] morning Medical and 30 mL Branch in the evening. ondansetron 3-0 Yes [id number] 4mg Take 1 [facility] 4 mg 1-24 tablet by ity of disintegrat 00:00: mouth [place] ing tablet 00 every 8 Medica l (eight) Branch hours as needed for Nausea and Vomiting (N/V). sucralfate 3-0 Yes [id number] 1g Take 1 [facility] 1 gram 1-24 tablet by ity of tablet 00:00: mouth [place] 00 before Medical meals and Branch at bedtime. pantoprazol 3-0 Yes [id number] 40mg Take 1 [facility] e 40 mg EC 1-24 tablet by ity of tablet 00:00: mouth in [place] the Medical morning Branch and 1 tablet in the evening. SUMAtriptan 3-0 Yes [id number] 50mg Take 1 [facility] 50 mg 1-24 tablet by ity of tablet 00:00: mouth as [place] [address] needed for Medical Migraine. Branch May repeat dose after >=2 hours, max dose 200mg in 24 hours. polyethylen 2023-0 Yes [id number] 17g Take 1 [facility] e glycol 1-24 Packet by ity of 3350 17 00:00: mouth in [place] gram powder 00 the Medical morning Branch and 1 Packet in the evening. lactulose 2023-0 Yes [id number] 30mL Take 30 mL [facility] 10 gram/15 1-24 by mouth ity o f mL solution 00:00: in the morning Medical and 30 mL Branch in the evening. ondansetron 2023-0 Yes [id number] 4mg Take 1 [facility] 4 mg 1-24 tablet by ity of disintegrat 00:00: mouth [place] ing tablet 00 every 8 Medica l (eight) Branch hours as needed for Nausea and Vomiting (N/V). sucralfate 2023-0 Yes [id number] 1g Take 1 [facility] 1 gram 1-24 tablet by ity of tablet 00:00: mouth [place] 00 before Medical meals and Branch at bedtime. SUMAtriptan 2023-0 Yes [id number] 50mg Take 1 [facility] 50 mg 1-24 tablet by ity of tablet 00:00: mouth as 00 needed for Medical Migraine. Branch May repeat dose after >=2 hours, max dose 200mg in 24 hours. polyethylen 2023-0 Yes [id number] 17g Take 1 [facility] e glycol 1-24 Packet by ity of 3350 17 00:00: mouth in [place] gram powder 00 the Medical morning Branch and 1 Packet in the evening. lactulose 2023-0 Yes [id number] 30mL Take 30 mL [facility] 10 gram/15 1-24 by mouth ity o f mL solution 00:00: in the morning Medical and 30 mL Branch in the evening. ondansetron 2023-0 Yes [id number] 4mg Take 1 [facility] 4 mg 1-24 tablet by ity of disintegrat 00:00: mouth [place] ing tablet 00 every 8 Medica l (eight) Branch hours as needed for Nausea and Vomiting (N/V). sucralfate 2023-0 Yes [id number] 1g Take 1 [facility] 1 gram 1-24 tablet by ity of tablet 00:00: mouth [place] 00 before Medical meals and Branch at bedtime. SUMAtriptan 2023-0 Yes [id number] 50mg Take 1 [facility] 50 mg 1-24 tablet by ity of tablet 00:00: mouth as [place] 00 needed for Medical Migraine. Branch May repeat dose after >=2 hours, max dose 200mg in 24 hours. polyethylen 2023-0 Yes [id number] 17g Take 1 [facility] e glycol 1-24 Packet by ity of 3350 17 00:00: mouth in [place] gram powder 00 the Medical morning Branch and 1 Packet in the evening. lactulose 2023-0 Yes [id number] 30mL Take 30 mL [facility] 10 gram/15 1-24 by mouth ity o f mL solution 00:00: in the [place] 00 morning Medical and 30 mL Branch in the evening. ondansetron 2023-0 Yes [id number] 4mg Take 1 [facility] 4 mg 1-24 tablet by ity of disintegrat 00:00: mouth [place] ing tablet 00 every 8 Medica l (eight) Branch hours as needed for Nausea and Vomiting (N/V). sucralfate 2023-0 Yes [id number] 1g Take 1 [facility] 1 gram 1-24 tablet by ity of tablet 00:00: mouth [place] 00 before Medical meals and Branch at bedtime. SUMAtriptan 2023-0 Yes [id number] 50mg Take 1 [facility] 50 mg 1-24 tablet by ity of tablet 00:00: mouth as [place] 00 needed for Medical Migraine. Branch May repeat dose after >=2 hours, max dose 200mg in 24 hours. polyethylen 2023-0 Yes [id number] 17g Take 1 [facility] e glycol 1-24 Packet by ity of 3350 17 00:00: mouth in [place] gram powder 00 the Medical morning Branch and 1 Packet in the evening. lactulose 2023-0 Yes [id number] 30mL Take 30 mL [facility] 10 gram/15 1-24 by mouth ity o f mL solution 00:00: [place] morning Medical and 30 mL Branch in the evening. ondansetron 2023-0 Yes [id number] 4mg Take 1 [facility] 4 mg 1-24 tablet by ity of disintegrat 00:00: mouth [place] ing tablet 00 every 8 Medica l (eight) Branch hours as needed for Nausea and Vomiting (N/V). sucralfate 2023-0 Yes [id number] 1g Take 1 [facility] 1 gram 1-24 tablet by ity of tablet 00:00: mouth [place] 00 before Medical meals and Branch at bedtime. SUMAtriptan 2023-0 Yes [id number] 50mg Take 1 [facility] 50 mg 1-24 tablet by ity of tablet 00:00: mouth as [place] 00 needed for Medical Migraine. Branch May repeat dose after >=2 hours, max dose 200mg in 24 hours. polyethylen 2023-0 Yes [id number] 17g Take 1 [facility] e glycol 1-24 Packet by ity of 3350 17 00:00: mouth in [place] gram powder 00 the Medical morning Branch and 1 Packet in the evening. lactulose 2023-0 Yes [id number] 30mL Take 30 mL [facility] 10 gram/15 1-24 by mouth ity o f mL solution 00:00: [place] the [place] morning Medical and 30 mL Branch in the evening. ondansetron 3-0 Yes [id number] 4mg Take 1 [facility] 4 mg 1-24 tablet by ity of disintegrat 00:00: mouth [place] ing tablet 00 every 8 Medica l (eight) Branch hours as needed for Nausea and Vomiting (N/V). sucralfate 2023-0 Yes [id number] 1g Take 1 [facility] 1 gram 1-24 tablet by ity of tablet 00:00: mouth [place] 00 before Medical meals and Branch at bedtime. SUMAtriptan 3-0 Yes [id number] 50mg Take 1 [facility] 50 mg 1-24 tablet by ity of tablet 00:00: mouth as [place] 00 needed for Medical Migraine. Branch May repeat dose after >=2 hours, max dose 200mg in 24 hours. polyethylen 2023-0 Yes [id number] 17g Take 1 [facility] e glycol 1-24 Packet by ity of 3350 17 00:00: mouth in [place] gram powder 00 the Medical morning Branch and 1 Packet in the evening. sucralfate 2023-0 Yes [id number] 1g Take 1 [facility] 1 gram 1-24 tablet by ity of tablet 00:00: mouth [place] 00 before Medical meals and Branch at bedtime. polyethylen 2023-0 Yes [id number] 17g Take 1 [facility] e glycol 1-24 Packet by ity of 3350 17 00:00: mouth in [place] gram powder 00 the Medical morning Branch and 1 Packet in the evening. sucralfate 2023-0 Yes [id number] 1g Take 1 [facility] 1 gram 1-24 tablet by ity of tablet 00:00: mouth [place] 00 before Medical meals and Branch at bedtime. polyethylen 2023-0 Yes [id number] 17g Take 1 [facility] e glycol 1-24 Packet by ity of 3350 17 00:00: mouth in [place] gram powder 00 the Medical morning Branch and 1 Packet in the evening. sucralfate 2023-0 Yes [id number] 1g Take 1 [facility] 1 gram 1-24 tablet by ity of tablet 00:00: mouth [place] 00 before Medical meals and Branch at bedtime. polyethylen 2023-0 Yes [id number] 17g Take 1 [facility] e glycol 1-24 Packet by ity of 3350 17 00:00: mouth in [place] gram powder 00 the Medical morning Branch and 1 Packet in the evening. sucralfate 2023-0 Yes [id number] 1g Take 1 [facility] 1 gram 1-24 tablet by ity of tablet 00:00: mouth [place] 00 before Medical meals and Branch at bedtime. polyethylen 2023-0 Yes [id number] 17g Take 1 Univers e glycol 1-24 Packet by ity of 3350 17 00:00: mouth in [place] gram powder 00 the Medical morning Branch and 1 Packet in the evening. sucralfate 2023-0 Yes [id number] 1g Take 1 [facility] 1 gram 1-24 tablet by ity of tablet 00:00: mouth [place] 00 before Medical meals and Branch at bedtime. polyethylen 2023-0 Yes [id number] 17g Take 1 [facility] e glycol 1-24 Packet by ity of 3350 17 00:00: mouth in [place] gram powder 00 the Medical morning Branch and 1 Packet in the evening. sucralfate 2023-0 Yes [id number] 1g Take 1 [facility] 1 gram 1-24 tablet by ity of tablet 00:00: mouth [place] 00 before Medical meals and Branch at bedtime. polyethylen 2023-0 Yes [id number] 17g Take 1 [facility] e glycol 1-24 Packet by ity of 3350 17 00:00: mouth in [place] gram powder 00 the Medical morning Branch and 1 Packet in the evening. sucralfate 2023-0 Yes [id number] 1g Take 1 [facility] 1 gram 1-24 tablet by ity of tablet 00:00: mouth [place] 00 before Medical meals and Branch at bedtime. polyethylen 2023-0 Yes [id number] 17g Take 1 [facility] e glycol 1-24 Packet by ity of 3350 17 00:00: mouth in [place] gram powder 00 the Medical morning Branch and 1 Packet in the evening. sucralfate 2023-0 Yes [id number] 1g Take 1 [facility] 1 gram 1-24 tablet by ity of tablet 00:00: mouth [place] 00 before Medical meals and Branch at bedtime. polyethylen 2023-0 Yes [id number] 17g Take 1 [facility] e glycol 1-24 Packet by ity of 3350 17 00:00: mouth in [place] gram powder 00 the Medical morning Branch and 1 Packet in the evening. sucralfate 2023-0 Yes [id number] 1g Take 1 [facility] 1 gram 1-24 tablet by ity of tablet 00:00: mouth [place] 00 before Medical meals and Branch at bedtime. polyethylen 2023-0 Yes [id number] 17g Take 1 [facility] e glycol 1-24 Packet by ity of 3350 17 00:00: mouth in [place] gram powder 00 the Medical morning Branch and 1 Packet in the evening. sucralfate 2022-0 Yes [id number] 1g Take 1 [facility] 1 gram 1-24 tablet by ity of tablet 00:00: mouth [place] 00 before Medical meals and Branch at bedtime. polyethylen 2023-0 Yes [id number] 17g Take 1 [facility] e glycol 1-24 Packet by ity of 3350 17 00:00: mouth in [place] gram powder 00 the Medical morning Branch and 1 Packet in the evening. sucralfate 2022-0 Yes [id number] 1g Take 1 [facility] 1 gram 1-24 tablet by ity of tablet 00:00: mouth [place] 00 before Medical meals and Branch at bedtime. lactulose 2022-0 2022- No [id number] 30mL Take 30 mL [facility] 10 gram/15 1-24 05-25 by mouth ity of mL solution 00:00: 00:00 in the [place] 00 :00 morning Medical and 30 mL Branch in the evening. ondansetron 2022-0 2022- No [id number] 4mg Take 1 [facility] 4 mg 1-24 05-25 tablet by ity of disintegrat 00:00: 00:00 [place] tablet 00 :00 every 8 Medica l (eight) Branch hours as needed for Nausea and Vomiting (N/V). SUMAtriptan 2022022- No [id number] 50mg Take 1 [facility] 50 mg 10-19 05-25 tablet by ity of tablet 00:00: 00:00 mouth as [place] 00 :00 needed for Medical Migraine. Branch May repeat dose after >=2 hours, max dose 200mg in 24 hours. iopamidol 2022- No [id number] 73mL 73 mL, Univers (ISOVUE 10-19 Intravenou ity o f 370-500 mL) 00:00: 00:00 s, ONCE, 1 [place] injection 00 :00 dose, On Medica l 73 mL [facility] 10/18/22 at 1800, Routine lactulose 2022- No 45mL 45 mL, Unive rs (CEPHULAC) 10-18 Oral, ity of solution 45 23:45: 23:48 ONCE, 1 [place] mL 00 :00 dose, On [facility] 10/18/22 at 1745, SABRINA dicyclomine 2022- No 20mg 20 mg, Uni vers (BENTYL) 10-18 Intramuscu ity of injection 22:30: 22:11 lar, ONCE, [place] 20 mg 00 :00 1 dose, On [facility] 10/18/22 at 1630, Routine NaCl 0.9% 2022- No 1000mL at 999 Uni vers (NS) bolus 10-18 mL/hr, ity of infusion 22:30: 23:42 1,000 mL, [place] 1,000 mL 00 :00 IV Medical Infusion, Branch ONCE, 1 dose, On [facility] 10/18/22 at 1630, SABRINA MULTIVIT Yes Take by [facility] s &MINERALS/F 10-18 mouth. ity of ERROUS FUM 21:34: [place] (MULTI 37 Medical VITAMIN Branch ORAL) METHYLCELLU Yes [facility] s LOSE (FIBER 10-18 ity of THERAPY 21:34: [place] MIS) 37 Medical Branch DOCUSATE Yes Take by [facility] s SODIUM 10-18 mouth. ity of (COLACE 21:34: [place] ORAL) 37 Medical Branch vitamin C Yes 1000mg Take 1,000 [facility] with derrell 1-23 mg by ity of hips 1,000 21:34: mouth [place] mg tablet 37 daily. Medical Branch DOCOSAHEXAN Yes 1000mg Take 1,000 [facility] OIC 1-23 mg by ity of ACID/EPA 21:34: mouth [place] (FISH OIL 37 daily. Medical ORAL) Branch FOLIC ACID Yes Take by [facility] ers ORAL - mouth ity of 20:39: daily. [place] [address] Medical Branch cholecalcif Yes 1000U Take 1,000 Univers edmar, 1-23 Units by ity of vitamin D3, 20:39: mouth [place] 25 mcg 28 daily. Medical (1,000 Branch unit) tablet CRANBERRY Yes [facility] FRUIT - mouth ity of EXTRACT 20:39: daily. [place] (CRANBERRY 28 Medical ORAL) Branch CALCIUM Yes Take by Univers ORAL - mouth ity of 20:39: daily. [place] [address] Medical Branch BIOTIN ORAL Yes Take by Uni vers 10-18 mouth. ity of 20:39: [place] [address] Medical Branch peg-electro 0 Yes [id number] Take as [facility] lyte soln 1-20 9102 directed ity of 236-22.74-6 00:00: [place] .74 -5.86 00 colonoscop Medi cipriano gram y Branch solution peg-electro 2022-0 Yes [id number] Take as [facility] lyte soln 1-20 9102 directed ity of 236-22.74-6 00:00: [place] .[place] -5.86 00 colonoscop Medi cipriano gram y Branch solution peg-electro 2022-0 Yes [id number] Take as [facility] lyte soln 1-20 9102 directed ity of 236-22.74-6 00:00: [place] -5.86 00 colonoscop Medi cipriano gram y Branch solution peg-electro 2022-0 Yes [id number] Take as Univers lyte soln 1-20 9102 directed ity of 236-22.74-6 00:00: [place] .[place] -5.86 00 colonoscop Medi cipriano gram y Branch solution peg-electro 2022-0 Yes [id number] Take as Univers lyte soln 1-20 9102 directed ity of 236-22.74-6 00:00: [place] .[place] -5.86 00 colonoscop Medi cipriano gram y Branch solution peg-electro 2022-0 2022- No [id number] Take as Univers lyte soln 10-15 9102 directed ity o f 236-22.74-6 00:00: 00:00 before [place] .74 -5.86 00 :00 colonoscop Medi cipriano gram y Branch solution peg-electro 0 2022- No [id number] Take as Univers lyte soln 10-15 9102 directed ity o f 236-22.74-6 00:00: 00:00 before [place] .74 -5.86 00 :00 colonoscop Medi cipriano gram y Branch solution peg-electro 0 2022- No [id number] Take as Univers lyte soln 10-15 9102 directed ity o f 236-22.74-6 00:00: 00:00 before [place] .74 -5.86 00 :00 colonoscop Medi cipriano gram y Branch solution peg-electro 0 2022- No [id number] Take as Univers lyte soln 10-15 9102 directed ity o f 236-22.74-6 00:00: 00:00 before [place] .74 -5.86 00 :00 colonoscop Medi cipriano gram y Branch solution busPIRone 2023-0 Yes [id number] 20mg Take 2 [facility] [place] 10 mg 1-17 tablets by ity of tablet 00:00: mouth in [place] [address] the Medical morning Branch and 2 tablets in the evening. busPIRone 2023-0 Yes [id number] 20mg Take 2 Un [place] 10 mg 1-17 tablets by ity of tablet 00:00: mouth in [place] [address] the Medical morning Branch and 2 tablets in the evening. busPIRone 2023-0 Yes [id number] 20mg Take 2 Un [place] 10 mg 1-17 tablets by ity of tablet 00:00: mouth in [place] [address] the Medical morning Branch and 2 tablets in the evening. busPIRone 2023-0 Yes [id number] 20mg Take 2 Un [place] 10 mg 1-17 tablets by ity of tablet 00:00: mouth in [place] [address] the Medical morning Branch and 2 tablets in the evening. busPIRone 2023-0 Yes [id number] 20mg Take 2 Un [place] 10 mg 1-17 tablets by ity of tablet 00:00: mouth in [place] 00 the Medical morning Branch and 2 tablets in the evening. busPIRone 2023-0 Yes [id number] 20mg Take 2 Un [place] 10 mg 1-17 tablets by ity of tablet 00:00: mouth in [place] 00 the Medical morning Branch and 2 tablets in the evening. busPIRone 3-0 Yes [id number] 20mg Take 2 Un [place] 10 mg 1-17 tablets by ity of tablet 00:00: mouth in [place] 00 the Medical morning Branch and 2 tablets in the evening. busPIRone 3-0 Yes [id number] 20mg Take 2 Un [place] 10 mg 1-17 tablets by ity of tablet 00:00: mouth in [place] 00 the Medical morning Branch and 2 tablets in the evening. busPIRone 3-0 Yes [id number] 20mg Take 2 Un [place] 10 mg 1-17 tablets by ity of tablet 00:00: mouth in [place] 00 the Medical morning Branch and 2 tablets in the evening. busPIRone 3-0 Yes [id number] 20mg Take 2 Un [place] 10 mg 1-17 tablets by ity of tablet 00:00: mouth in [place] 00 the Medical morning Branch and 2 tablets in the evening. busPIRone 3-0 Yes [id number] 20mg Take 2 Un [place] 10 mg 1-17 tablets by ity of tablet 00:00: mouth in [place] 00 the Medical morning Branch and 2 tablets in the evening. busPIRone 3-0 Yes [id number] 20mg Take 2 Un [place] 10 mg 1-17 tablets by ity of tablet 00:00: mouth in [place] 00 the Medical morning Branch and 2 tablets in the evening. busPIRone 2023-0 Yes [id number] 20mg Take 2 Un [place] 10 mg 1-17 tablets by ity of tablet 00:00: mouth in [place] 00 the Medical morning Branch and 2 tablets in the evening. busPIRone 2023-0 Yes [id number] 20mg Take 2 Un [place] 10 mg 1-17 tablets by ity of tablet 00:00: mouth in [place] 00 the Medical morning Branch and 2 tablets in the evening. busPIRone 3-0 Yes [id number] 20mg Take 2 Un [place] 10 mg 1-17 tablets by ity of tablet 00:00: mouth in [place] 00 the Medical morning Branch and 2 tablets in the evening. busPIRone 2023-0 Yes [id number] 20mg Take 2 [facility] [place] 10 mg 1-17 tablets by ity of tablet 00:00: mouth in [place] 00 the Medical morning Branch and 2 tablets in the evening. busPIRone 3-0 Yes [id number] 20mg Take 2 Un [place] 10 mg 1-17 tablets by ity of tablet 00:00: mouth in [place] 00 the Medical morning Branch and 2 tablets in the evening. busPIRone 3-0 Yes [id number] 20mg Take 2 Un [place] 10 mg 1-17 tablets by ity of tablet 00:00: mouth in [place] 00 the Medical morning Branch and 2 tablets in the evening. busPIRone 3-0 Yes [id number] 20mg Take 2 Un [place] 10 mg 1-17 tablets by ity of tablet 00:00: mouth in [place] 00 the Medical morning Branch and 2 tablets in the evening. busPIRone 3-0 Yes [id number] 20mg Take 2 [facility] [place] 10 mg 1-17 tablets by ity of tablet 00:00: mouth in [place] 00 the Medical morning Branch and 2 tablets in the evening. busPIRone 3-0 Yes [id number] 20mg Take 2 [facility] [place] 10 mg 1-17 tablets by ity of tablet 00:00: mouth in [place] 00 the Medical morning Branch and 2 tablets in the evening. busPIRone 3-0 Yes [id number] 20mg Take 2 [facility] [place] 10 mg 1-17 tablets by ity of tablet 00:00: mouth in [place] 00 the Medical morning Branch and 2 tablets in the evening. busPIRone 2023-0 Yes [id number] 20mg Take 2 [facility] [place] 10 mg 1-17 tablets by ity of tablet 00:00: mouth in [place] 00 the Medical morning Branch and 2 tablets in the evening. busPIRone 2023-0 Yes [id number] 20mg Take 2 Un [place] 10 mg 1-17 tablets by ity of tablet 00:00: mouth in [place] 00 the Medical morning Branch and 2 tablets in the evening. busPIRone 3-0 Yes [id number] 20mg Take 2 Un [place] 10 mg 1-17 tablets by ity of tablet 00:00: mouth in [place] 00 the Medical morning Branch and 2 tablets in the evening. busPIRone 2023-0 Yes [id number] 20mg Take 2 [place] 10 mg 1-17 tablets by ity of tablet 00:00: mouth in [place] 00 the Medical morning Branch and 2 tablets in the evening. busPIRone 3-0 Yes [id number] 20mg Take 2 Un [place] 10 mg 1-17 tablets by ity of tablet 00:00: mouth in [place] 00 the Medical morning Branch and 2 tablets in the evening. busPIRone 3-0 Yes [id number] 20mg Take 2 Un [place] 10 mg 1-17 tablets by ity of tablet 00:00: mouth in [place] 00 the Medical morning Branch and 2 tablets in the evening. busPIRone 3-0 Yes [id number] 20mg Take 2 [place] 10 mg 1-17 tablets by ity of tablet 00:00: mouth in [place] 00 the Medical morning Branch and 2 tablets in the evening. busPIRone 3-0 Yes [id number] 20mg Take 2 [place] 10 mg 1-17 tablets by ity of tablet 00:00: mouth in [place] 00 the Medical morning Branch and 2 tablets in the evening. busPIRone 3-0 Yes [id number] 20mg Take 2 [place] 10 mg 1-17 tablets by ity of tablet 00:00: mouth in [place] 00 the Medical morning Branch and 2 tablets in the evening. busPIRone 3-0 Yes [id number] 20mg Take 2 [place] 10 mg 1-17 tablets by ity of tablet 00:00: mouth in [place] 00 the Medical morning Branch and 2 tablets in the evening. busPIRone 2023-0 Yes [id number] 20mg Take 2 [place] 10 mg 1-17 tablets by ity of tablet 00:00: mouth in [place] 00 the Medical morning Branch and 2 tablets in the evening. busPIRone 2023-0 Yes [id number] 20mg Take 2 Un [place] 10 mg 1-17 tablets by ity of tablet 00:00: mouth in [place] 00 the Medical morning Branch and 2 tablets in the evening. busPIRone 3-0 Yes [id number] 20mg Take 2 Un [place] 10 mg 1-17 tablets by ity of tablet 00:00: mouth in [place] 00 the Medical morning Branch and 2 tablets in the evening. busPIRone 2023-0 Yes [id number] 20mg Take 2 Un [place] 10 mg 1-17 tablets by ity of tablet 00:00: mouth in [place] 00 the Medical morning Branch and 2 tablets in the evening. busPIRone 3-0 Yes [id number] 20mg Take 2 Un [place] 10 mg 1-17 tablets by ity of tablet 00:00: mouth in [place] 00 the Medical morning Branch and 2 tablets in the evening. busPIRone 3-0 Yes [id number] 20mg Take 2 Un [place] 10 mg 1-17 tablets by ity of tablet 00:00: mouth in [place] 00 the Medical morning Branch and 2 tablets in the evening. busPIRone 3-0 Yes [id number] 20mg Take 2 [facility] [place] 10 mg 1-17 tablets by ity of tablet 00:00: mouth in [place] 00 the Medical morning Branch and 2 tablets in the evening. busPIRone 3-0 Yes [id number] 20mg Take 2 Un [place] 10 mg 1-17 tablets by ity of tablet 00:00: mouth in [place] 00 the Medical morning Branch and 2 tablets in the evening. busPIRone 3-0 Yes [id number] 20mg Take 2 Un [place] 10 mg 1-17 tablets by ity of tablet 00:00: mouth in [place] 00 the Medical morning Branch and 2 tablets in the evening. busPIRone 3-0 Yes [id number] 20mg Take 2 Un [place] 10 mg 1-17 tablets by ity of tablet 00:00: mouth in [place] 00 the Medical morning Branch and 2 tablets in the evening. busPIRone 2023-0 Yes [id number] 20mg Take 2 Un [place] 10 mg 1-17 tablets by ity of tablet 00:00: mouth in [place] 00 the Medical morning Branch and 2 tablets in the evening. busPIRone 2023-0 Yes [id number] 20mg Take 2 Un [place] 10 mg 1-17 tablets by ity of tablet 00:00: mouth in [place] 00 the Medical morning Branch and 2 tablets in the evening. busPIRone 3-0 Yes [id number] 20mg Take 2 Un [place] 10 mg 1-17 tablets by ity of tablet 00:00: mouth in [place] 00 the Medical morning Branch and 2 tablets in the evening. busPIRone 2023-0 Yes [id number] 20mg Take 2 [facility] [place] 10 mg 1-17 tablets by ity of tablet 00:00: mouth in [place] 00 the Medical morning Branch and 2 tablets in the evening. busPIRone 3-0 Yes [id number] 20mg Take 2 Un [place] 10 mg 1-17 tablets by ity of tablet 00:00: mouth in [place] 00 the Medical morning Branch and 2 tablets in the evening. busPIRone 3-0 Yes [id number] 20mg Take 2 Un [place] 10 mg 1-17 tablets by ity of tablet 00:00: mouth in [place] 00 the Medical morning Branch and 2 tablets in the evening. busPIRone 3-0 Yes [id number] 20mg Take 2 [facility] [place] 10 mg 1-17 tablets by ity of tablet 00:00: mouth in [place] 00 the Medical morning Branch and 2 tablets in the evening. busPIRone 3-0 Yes [id number] 20mg Take 2 Un [place] 10 mg 1-17 tablets by ity of tablet 00:00: mouth in [place] 00 the Medical morning Branch and 2 tablets in the evening. busPIRone 3-0 Yes [id number] 20mg Take 2 Un [place] 10 mg 1-17 tablets by ity of tablet 00:00: mouth in [place] 00 the Medical morning Branch and 2 tablets in the evening. busPIRone 3-0 Yes [id number] 20mg Take 2 Un [place] 10 mg 1-17 tablets by ity of tablet 00:00: mouth in [place] 00 the Medical morning Branch and 2 tablets in the evening. busPIRone 2023-0 Yes [id number] 20mg Take 2 [facility] [place] 10 mg 1-17 tablets by ity of tablet 00:00: mouth in [place] 00 the Medical morning Branch and 2 tablets in the evening. busPIRone 2023-0 Yes [id number] 20mg Take 2 [place] 10 mg 1-17 tablets by ity of tablet 00:00: mouth in [place] 00 the Medical morning Branch and 2 tablets in the evening. busPIRone 3-0 Yes [id number] 20mg Take 2 [place] 10 mg 1-17 tablets by ity of tablet 00:00: mouth in [place] 00 the Medical morning Branch and 2 tablets in the evening. busPIRone 2023-0 Yes [id number] 20mg Take 2 [place] 10 mg 1-17 tablets by ity of tablet 00:00: mouth in [place] 00 the Medical morning Branch and 2 tablets in the evening. busPIRone 3-0 Yes [id number] 20mg Take 2 [facility] [place] 10 mg 1-17 tablets by ity of tablet 00:00: mouth in [place] 00 the Medical morning Branch and 2 tablets in the evening. busPIRone 3-0 Yes [id number] 20mg Take 2 [facility] [place] 10 mg 1-17 tablets by ity of tablet 00:00: mouth in [place] 00 the Medical morning Branch and 2 tablets in the evening. busPIRone 3-0 Yes [id number] 20mg Take 2 [place] 10 mg 1-17 tablets by ity of tablet 00:00: mouth in [place] 00 the Medical morning Branch and 2 tablets in the evening. busPIRone 3-0 Yes [id number] 20mg Take 2 [facility] [place] 10 mg 1-17 tablets by ity of tablet 00:00: mouth in [place] 00 the Medical morning Branch and 2 tablets in the evening. busPIRone 3-0 Yes [id number] 20mg Take 2 [place] 10 mg 1-17 tablets by ity of tablet 00:00: mouth in [place] 00 the Medical morning Branch and 2 tablets in the evening. busPIRone 3-0 Yes [id number] 20mg Take 2 [place] 10 mg 1-17 tablets by ity of tablet 00:00: mouth in [place] 00 the Medical morning Branch and 2 tablets in the evening. busPIRone 2023-0 Yes [id number] 20mg Take 2 [place] 10 mg 1-17 tablets by ity of tablet 00:00: mouth in [place] 00 the Medical morning Branch and 2 tablets in the evening. busPIRone 2023-0 Yes [id number] 20mg Take 2 [place] 10 mg 1-17 tablets by ity of tablet 00:00: mouth in [place] 00 the Medical morning Branch and 2 tablets in the evening. busPIRone 2023-0 Yes [id number] 20mg Take 2 [facility] [place] 10 mg 1-17 tablets by ity of tablet 00:00: mouth in [place] 00 the Medical morning Branch and 2 tablets in the evening. sulfamethox 0 Yes TAKE 1 Univ ers azole-trime 1-14 TABLET BY ity of thoprim 00:00: MOUTH [place] 800-160 mg 00 EVERY 12 Medic al per tablet HOURS FOR Bran ch 7 DAYS traMADoL 50 Yes TAKE 1 Univ ers mg tablet 1-14 TABLET BY ity o f 00:00: MOUTH [place] 00 EVERY 8 Medical HOURS Branch NEEDED sulfamethox 0 Yes TAKE 1 Univ ers azole-trime 1-14 TABLET BY ity of thoprim 00:00: MOUTH [place] 800-160 mg 00 EVERY 12 Medic al per tablet HOURS FOR Bran ch 7 DAYS traMADoL 50 Yes TAKE 1 Univ ers mg tablet 1-14 TABLET BY ity o f 00:00: MOUTH [place] 00 EVERY 8 Medical HOURS Branch NEEDED sulfamethox 0 Yes TAKE 1 Univ ers azole-trime 1-14 TABLET BY ity of thoprim 00:00: MOUTH [place] 800-160 mg 00 EVERY 12 Medic al per tablet HOURS FOR Bran ch 7 DAYS traMADoL 50 0 Yes TAKE 1 Univ ers mg tablet 1-14 TABLET BY ity o f 00:00: MOUTH [place] 00 EVERY 8 Medical HOURS Branch NEEDED sulfamethox 0 Yes TAKE 1 Univ ers azole-trime 1-14 TABLET BY ity of thoprim 00:00: MOUTH [place] 800-160 mg 00 EVERY 12 Medic al per tablet HOURS FOR Bran ch 7 DAYS traMADoL 50 0 Yes TAKE 1 Univ [...] Pain (scale 1-3) (as directed). traMADoL 50 2023-0 2023- No 50mg Take 50 mg Univers mg [...] Bran ch 7 DAYS metroNIDAZO 2023-0 Yes [id number] 500mg Take 1 Univers LE 500 mg 1-12 tablet by ity o f tablet 00:00: mouth in [place] 00 the Medical morning Branch and 1 tablet in the evening. dicyclomine 2023-0 Yes [id number] 20mg Take 1 [facility] 20 mg 1-12 tablet by ity of tablet 00:00: mouth 4 [place] ([facility]) Medical times Chromo daily. metroNIDAZO 2023-0 Yes [id number] 500mg Take 1 Univers LE 500 mg 1-12 tablet by ity o f tablet 00:00: mouth in [place] 00 the Medical morning Branch and 1 tablet in the evening. dicyclomine 2023-0 Yes [id number] 20mg Take 1 [facility] 20 mg 1-12 tablet by ity of tablet 00:00: mouth 4 [place] ([facility]) [facility] times Chromo daily. metroNIDAZO 2023-0 Yes [id number] 500mg Take 1 Univers LE 500 mg 1-12 tablet by ity o f tablet 00:00: mouth in [place] the Medical morning Branch and 1 tablet in the evening. dicyclomine 2023-0 Yes [id number] 20mg Take 1 [facility] 20 mg 1-12 tablet by ity of tablet 00:00: mouth [place] ([facility]) [facility] times Chromo daily. metroNIDAZO 2023-0 Yes [id number] 500mg Take 1 Univers LE 500 mg 1-12 tablet by ity o f tablet 00:00: mouth in [place] the Medical morning Branch and 1 tablet in the evening. dicyclomine 2023-0 Yes [id number] 20mg Take 1 [facility] 20 mg 1-12 tablet by ity of tablet 00:00: mouth [place] ([facility]) Medical times Chromo daily. metroNIDAZO 2023-0 Yes [id number] 500mg Take 1 [facility] LE 500 mg 1-12 tablet by ity o f tablet 00:00: mouth in [place] the Medical morning Branch and 1 tablet in the evening. dicyclomine 2023-0 Yes [id number] 20mg Take 1 [facility] 20 mg 1-12 tablet by ity of tablet 00:00: mouth 4 [place] ([facility]) Medical times Chromo daily. metroNIDAZO 2023-0 Yes [id number] 500mg Take 1 [facility] LE 500 mg 1-12 tablet by ity o f tablet 00:00: mouth in [place] 00 the Medical morning Branch and 1 tablet in the evening. dicyclomine 2023-0 Yes [id number] 20mg Take 1 [facility] 20 mg -12 tablet by ity of tablet 00:00: mouth 4 [place] 00 ([facility]) Medical times Branch daily. metroNIDAZO 2023-0 2023- No [id number] 500mg Take 1 [facility] LE 500 mg 10-07 tablet by ity of tablet 00:00: 00:00 mouth in [place] 00 :00 the Medical morning Branch and 1 tablet in the evening. dicyclomine 2023-0 2023- No [id number] 20mg Take 1 [facility] 20 mg 10-07 tablet by ity of tablet 00:00: 00:00 mouth 4 [place] 00 :00 ([facility]) Medical times Branch daily. metroNIDAZO 2023-0 2023- No [id number] 500mg Take 1 [facility] LE 500 mg 10-07 tablet by ity of tablet 00:00: 00:00 mouth in [place] 00 :00 the Medical morning Branch and 1 tablet in the evening. dicyclomine 2023-0 2023- No [id number] 20mg Take 1 [facility] 20 mg 10-07 tablet by ity of tablet 00:00: 00:00 mouth 4 [place] 00 :00 ([facility]) Medical times Chromo daily. metroNIDAZO 2023-0 2023- No [id number] 500mg Take 1 Univers LE 500 mg 10-07 tablet by ity of tablet 00:00: 00:00 mouth in [place] 00 :00 the Medical morning Branch and 1 tablet in the evening. dicyclomine 2023-0 2023- No [id number] 20mg Take 1 [facility] 20 mg 10-07 tablet by ity of tablet 00:00: 00:00 mouth 4 [place] 00 :00 ([facility]) Medical times Chromo daily. metroNIDAZO 2023-0 2023- No [id number] 500mg Take 1 Univers LE 500 mg 10-07 tablet by ity of tablet 00:00: 00:00 mouth in [place] 00 :00 the Medical morning Branch and 1 tablet in the evening. dicyclomine 2023-0 2023- No [id number] 20mg Take 1 [facility] 20 mg 10-0724 tablet by ity of tablet 00:00: 00:00 mouth 4 [place] 00 :00 (four) Medical times Branch daily. metroNIDAZO 2023-0 2023- No [id number] 500mg Take 1 [facility] LE 500 mg 10-07 tablet by ity of tablet 00:00: 00:00 mouth in [place] 00 :00 the Medical morning Branch and 1 tablet in the evening. dicyclomine 2023-0 2023- No [id number] 20mg Take 1 [facility] 20 mg 10-0724 tablet by ity of tablet 00:00: 00:00 mouth 4 [place] 00 :00 (four) Medical times Branch daily. dicyclomine 2023-0 Yes 20mg Take 20 mg Univers 20 mg 1-10 by mouth 4 ity of tablet 00:00: ([facility]) [place] [address] times [facility] daily. Branch metoclopram 2023-0 Yes TAKE 1 Univ ers dariela HCl 10 1-10 TABLET BY ity of mg tablet 00:00: [facility] 00 EVERY 6 Medical HOURS (30 Branch MINUTES BEFORE MEALS AND AT BEDTIME) dicyclomine 2023-0 Yes 20mg Take 20 mg Univers 20 mg 1-10 by mouth 4 ity of tablet 00:00: ([facility]) [place] times Medical daily. Branch metoclopram 2023-0 Yes TAKE 1 Univ ers dariela HCl 10 1-10 TABLET BY ity of mg tablet 00:00: [facility] 00 EVERY 6 Medical HOURS (30 Branch MINUTES BEFORE MEALS AND AT BEDTIME) metoclopram 2023-0 Yes TAKE 1 Univ ers dariela HCl 10 1-10 TABLET BY ity of mg tablet 00:00: [facility] EVERY 6 Medical HOURS (30 Branch MINUTES BEFORE MEALS AND AT BEDTIME) metoclopram 2023-0 Yes TAKE 1 Univ ers dariela HCl 10 1-10 TABLET BY ity of mg tablet 00:00: [facility] 00 EVERY 6 Medical HOURS (30 Branch MINUTES BEFORE MEALS AND AT BEDTIME) metoclopram 2023-0 Yes TAKE 1 Univ ers dariela HCl 10 1-10 TABLET BY ity of mg tablet 00:00: [facility] 00 EVERY 6 Medical HOURS (30 Branch MINUTES BEFORE MEALS AND AT BEDTIME) metoclopram 2023-0 Yes TAKE 1 Univ ers dariela HCl 10 1-10 TABLET BY ity of mg tablet 00:00: [place] [id number] EVERY 6 Medical HOURS (30 Branch MINUTES [...] BEFORE MEALS AND AT BEDTIME) dicyclomine 2023-0 2022- No 20mg Take 20 mg Univers 20 mg 1-10 10-07 by mouth 4 ity of tablet 00:00: 00:00 (four) [place] 00 :00 times Medical daily. Branch ibuprofen 2021- Yes TAKE 1 Univer s 800 mg 2-26 TABLET BY ity of tablet 00:00: MOUTH EVERY 8 Medical HOURS WITH Branch FOOD [...] TAKE 1 Unive rs 800 mg 2-21 10- TABLET BY ity of tablet 00:00: 00:00 MOUTH [place] 00 :00 EVERY 8 Medical HOURS WITH Branch FOOD NEEDED FOR PAIN Nitrofurant 2021-09- No TAKE 1 Uni vers oin&Nit. 2-21 10- CAPSULE BY ity of Macrocryst 00:00: 00:00 MOUTH [place] 100 mg 00 :00 EVERY 12 Medical capsule HOURS FOR Branch 10 DAYS ibuprofen 2021-09- No TAKE 1 Unive rs 800 mg -21 10- TABLET BY ity of tablet 00:00: 00:00 MOUTH [place] 00 :00 EVERY 8 Medical HOURS WITH Branch FOOD NEEDED FOR PAIN Nitrofurant 2021-09- No TAKE 1 Uni vers oin&Nit. 2-21 10- CAPSULE BY ity of Macrocryst 00:00: 00:00 [...] TAKE 1 Unive rs 800 mg 2-21 10- TABLET BY ity of tablet 00:00: 00:00 [...] Medica l NEEDED Branch pregabalin 2021-09 Yes [id number] 150mg Take 1 [facility] 150 mg 2-14 capsule by ity of capsule 00:00: mouth in [place] 00 the Medical morning Branch and 1 capsule at noon and 1 capsule in the evening. pregabalin 2021-09 Yes [id number] 150mg Take 1 [facility] 150 mg 2-14 capsule by ity of capsule 00:00: mouth in [place] 00 the Medical morning Branch and 1 capsule at noon and 1 capsule in the evening. pregabalin 2021- Yes [id number] 150mg Take 1 [facility] 150 mg 2-14 capsule by ity of capsule 00:00: mouth in [address] and 1 capsule at noon and 1 capsule in the evening. pregabalin 2021-09 Yes [id number] 150mg Take 1 [facility] 150 mg 2-14 capsule by ity of capsule 00:00: mouth in [address] and 1 capsule at noon and 1 capsule in the evening. pregabalin 2021-09 Yes [id number] 150mg Take 1 [facility] 150 mg 2-14 capsule by ity of capsule 00:00: mouth in [address] and 1 capsule at noon and 1 capsule in the evening. pregabalin 2021-09 Yes [id number] 150mg Take 1 [facility] 150 mg 2-14 capsule by ity of capsule 00:00: mouth in [address] and 1 capsule at noon and 1 capsule in the evening. pregabalin 2021-09 Yes [id number] 150mg Take 1 [facility] 150 mg 2-14 capsule by ity of capsule 00:00: mouth in [address] and 1 capsule at noon and 1 capsule in the evening. pregabalin 2021-09 Yes [id number] 150mg Take 1 [facility] 150 mg 2-14 capsule by ity of capsule 00:00: mouth in [address] and 1 capsule at noon and 1 capsule in the evening. pregabalin 2021-09 Yes [id number] 150mg Take 1 [facility] 150 mg 2-14 capsule by ity of capsule 00:00: mouth in [address] and 1 capsule at noon and 1 capsule in the evening. pregabalin 2021- Yes [id number] 150mg Take 1 [facility] 150 mg 2-14 capsule by ity of capsule 00:00: mouth in [address] and 1 capsule at noon and 1 capsule in the evening. pregabalin 2021-1 Yes [id number] 150mg Take 1 [facility] 150 mg 2-14 capsule by ity of capsule 00:00: mouth in [address] and 1 capsule at noon and 1 capsule in the evening. pregabalin 2021-1 Yes [id number] 150mg Take 1 [facility] 150 mg 2-14 capsule by ity of capsule 00:00: mouth in [place] 00 the Medical morning Branch and 1 capsule at noon and 1 capsule in the evening. pregabalin 2021-09- No [id number] 150mg Take 1 [facility] 150 mg 2-14 -24 capsule by ity of capsule 00:00: 00:00 mouth in [place] 00 :00 the Medical morning Branch and 1 capsule at noon and 1 capsule in the evening. pregabalin 2021-09- No [id number] 150mg Take 1 [facility] 150 mg 2-14 -24 capsule by ity of capsule 00:00: 00:00 mouth in [place] 00 :00 the Medical morning Branch and 1 capsule at noon and 1 capsule in the evening. pregabalin 2021-09- No [id number] 150mg Take 1 [facility] 150 mg 2-14 - capsule by ity of capsule 00:00: 00:00 mouth in [place] 00 :00 the Medical morning Branch and 1 capsule at noon and 1 capsule in the evening. pregabalin 2021-09- No [id number] 150mg Take 1 [facility] 150 mg 2-14 -24 capsule by ity of capsule 00:00: 00:00 mouth in [place] 00 :00 the Medical morning Branch and 1 capsule at noon and 1 capsule in the evening. pregabalin 2021-09- No [id number] 150mg Take 1 [facility] 150 mg 2-14 -24 capsule by ity of capsule 00:00: 00:00 mouth in [place] 00 :00 the Medical morning Branch and 1 capsule at noon and 1 capsule in the evening. montelukast 2021-09 Yes [id number] 10mg Take 1 Univers (SINGULAIR) 2-09 tablet by ity of 10 mg 00:00: mouth in [place] tablet 00 the Medical morning. Chromo montelukast 2021-09 Yes [id number] 10mg Take 1 Univers (SINGULAIR) 2-09 tablet by ity of 10 mg 00:00: mouth in [place] tablet 00 the Medical morning. Chromo montelukast 2021-09 Yes [id number] 10mg Take 1 Univers (SINGULAIR) 2-09 tablet by ity of 10 mg 00:00: mouth in [place] tablet 00 the Medical morning. [facility] 2021-09 Yes [id number] 10mg Take 1 Univers (SINGULAIR) 2-09 tablet by ity of 10 mg 00:00: mouth in [place] tablet 00 the Medical morning. [facility] 2021-09 Yes [id number] 10mg Take 1 Univers (SINGULAIR) 2-09 tablet by ity of 10 mg 00:00: mouth in [place] tablet 00 the Medical morning. [facility] 2021-09 Yes [id number] 10mg Take 1 Univers (SINGULAIR) 2-09 tablet by ity of 10 mg 00:00: mouth in [place] tablet 00 the Medical morning. [facility] 2021-09 Yes [id number] 10mg Take 1 Univers (SINGULAIR) 2-09 tablet by ity of 10 mg 00:00: mouth in [place] tablet 00 the Medical morning. [facility] 2021-09 Yes [id number] 10mg Take 1 Univers (SINGULAIR) 2-09 tablet by ity of 10 mg 00:00: mouth in [place] tablet 00 the Medical morning. [facility] 2021-09 Yes [id number] 10mg Take 1 Univers (SINGULAIR) 2-09 tablet by ity of 10 mg 00:00: mouth in [place] tablet 00 the Medical morning. [facility] 2021-09 Yes [id number] 10mg Take 1 Univers (SINGULAIR) 2-09 tablet by ity of 10 mg 00:00: mouth in [place] tablet 00 the Medical morning. [facility] 2021-09 Yes [id number] 10mg Take 1 Univers (SINGULAIR) 2-09 tablet by ity of 10 mg 00:00: mouth in [place] tablet 00 the Medical morning. [facility] 2021-09 Yes [id number] 10mg Take 1 Univers (SINGULAIR) 2-09 tablet by ity of 10 mg 00:00: mouth in [place] tablet 00 the Medical morning. [facility] 2021-09 Yes [id number] 10mg Take 1 Univers (SINGULAIR) 2-09 tablet by ity of 10 mg 00:00: mouth in [place] tablet 00 the Medical morning. [facility] 2021-09 Yes [id number] 10mg Take 1 Univers (SINGULAIR) 2-09 tablet by ity of 10 mg 00:00: mouth in [place] tablet 00 the Medical morning. [facility] 2021-09 Yes [id number] 10mg Take 1 Univers (SINGULAIR) 2-09 tablet by ity of 10 mg 00:00: mouth in [place] tablet 00 the Medical morning. [facility] 2021-09 Yes [id number] 10mg Take 1 Univers (SINGULAIR) 2-09 tablet by ity of 10 mg 00:00: mouth in [place] tablet 00 the Medical morning. [facility] 2021-09 Yes [id number] 10mg Take 1 Univers (SINGULAIR) 2-09 tablet by ity of 10 mg 00:00: mouth in [place] tablet 00 the Medical morning. [facility] 2021-09 Yes [id number] 10mg Take 1 Univers (SINGULAIR) 2-09 tablet by ity of 10 mg 00:00: mouth in [place] tablet 00 the Medical morning. [facility] 2021-09 Yes [id number] 10mg Take 1 Univers (SINGULAIR) 2-09 tablet by ity of 10 mg 00:00: mouth in [place] tablet 00 the Medical morning. [facility] 2021-09 Yes [id number] 10mg Take 1 Univers (SINGULAIR) 2-09 tablet by ity of 10 mg 00:00: mouth in [place] tablet 00 the Medical morning. [facility] 2021-09 Yes [id number] 10mg Take 1 Univers (SINGULAIR) 2-09 tablet by ity of 10 mg 00:00: mouth in [place] tablet 00 the Medical morning. [facility] 2021-09 Yes [id number] 10mg Take 1 Univers (SINGULAIR) 2-09 tablet by ity of 10 mg 00:00: mouth in [place] tablet 00 the Medical morning. [facility] 2021-09 Yes [id number] 10mg Take 1 Univers (SINGULAIR) 2-09 tablet by ity of 10 mg 00:00: mouth in [place] tablet 00 the Medical morning. [facility] 2021-09 Yes [id number] 10mg Take 1 Univers (SINGULAIR) 2-09 tablet by ity of 10 mg 00:00: mouth in [place] tablet 00 the Medical morning. [facility] 2021-09 Yes [id number] 10mg Take 1 Univers (SINGULAIR) 2-09 tablet by ity of 10 mg 00:00: mouth in [place] tablet 00 the Medical morning. [facility] 2021-09 Yes [id number] 10mg Take 1 Univers (SINGULAIR) 2-09 tablet by ity of 10 mg 00:00: mouth in [place] tablet 00 the Medical morning. [facility] 2021-09 Yes [id number] 10mg Take 1 Univers (SINGULAIR) 2-09 tablet by ity of 10 mg 00:00: mouth in [place] tablet 00 the Medical morning. [facility] 2021-09 Yes [id number] 10mg Take 1 Univers (SINGULAIR) 2-09 tablet by ity of 10 mg 00:00: mouth in [place] tablet 00 the Medical morning. [facility] 2021-09 Yes [id number] 10mg Take 1 Univers (SINGULAIR) 2-09 tablet by ity of 10 mg 00:00: mouth in [place] tablet 00 the Medical morning. [facility] 2021-09 Yes [id number] 10mg Take 1 Univers (SINGULAIR) 2-09 tablet by ity of 10 mg 00:00: mouth in [place] tablet 00 the Medical morning. [facility] 2021-09 Yes [id number] 10mg Take 1 Univers (SINGULAIR) 2-09 tablet by ity of 10 mg 00:00: mouth in [place] tablet 00 the Medical morning. [facility] 2021-09 Yes [id number] 10mg Take 1 Univers (SINGULAIR) 2-09 tablet by ity of 10 mg 00:00: mouth in [place] tablet 00 the Medical morning. [facility] 2021-09 Yes [id number] 10mg Take 1 Univers (SINGULAIR) 2-09 tablet by ity of 10 mg 00:00: mouth in [place] tablet 00 the Medical morning. [facility] 2021-09 Yes [id number] 10mg Take 1 Univers (SINGULAIR) 2-09 tablet by ity of 10 mg 00:00: mouth in [place] tablet 00 the Medical morning. [facility] 2021-09 Yes [id number] 10mg Take 1 Univers (SINGULAIR) 2-09 tablet by ity of 10 mg 00:00: mouth in [place] tablet 00 the Medical morning. [facility] 2021-09 Yes [id number] 10mg Take 1 Univers (SINGULAIR) 2-09 tablet by ity of 10 mg 00:00: mouth in [place] tablet 00 the Medical morning. [facility] 2021-09 Yes [id number] 10mg Take 1 Univers (SINGULAIR) 2-09 tablet by ity of 10 mg 00:00: mouth in [place] tablet 00 the Medical morning. [facility] 2021-09 Yes [id number] 10mg Take 1 Univers (SINGULAIR) 2-09 tablet by ity of 10 mg 00:00: mouth in [place] tablet 00 the Medical morning. [facility] 2021-09 Yes [id number] 10mg Take 1 Univers (SINGULAIR) 2-09 tablet by ity of 10 mg 00:00: mouth in [place] tablet 00 the Medical morning. [facility] 2021-09 Yes [id number] 10mg Take 1 Univers (SINGULAIR) 2-09 tablet by ity of 10 mg 00:00: mouth in [place] tablet 00 the Medical morning. [facility] 2021-09 Yes [id number] 10mg Take 1 Univers (SINGULAIR) 2-09 tablet by ity of 10 mg 00:00: mouth in [place] tablet 00 the Medical morning. [facility] 2021-09 Yes [id number] 10mg Take 1 Univers (SINGULAIR) 2-09 tablet by ity of 10 mg 00:00: mouth in [place] tablet 00 the Medical morning. [facility] 2021-09 Yes [id number] 10mg Take 1 Univers (SINGULAIR) 2-09 tablet by ity of 10 mg 00:00: mouth in [place] tablet 00 the Medical morning. [facility] 2021-09 Yes [id number] 10mg Take 1 Univers (SINGULAIR) 2-09 tablet by ity of 10 mg 00:00: mouth in [place] tablet 00 the Medical morning. [facility] 2021-09 Yes [id number] 10mg Take 1 [facility] (SINGULAIR) 2-09 tablet by ity of 10 mg 00:00: mouth in [place] tablet 00 the Medical morning. [facility] 2021-09 Yes [id number] 10mg Take 1 [facility] (SINGULAIR) 2-09 tablet by ity of 10 mg 00:00: mouth in [place] tablet 00 the Medical morning. [facility] 2021-09 Yes [id number] 10mg Take 1 Univers (SINGULAIR) 2-09 tablet by ity of 10 mg 00:00: mouth in [place] tablet 00 the Medical morning. [facility] 2021-09 Yes [id number] 10mg Take 1 Univers (SINGULAIR) 2-09 tablet by ity of 10 mg 00:00: mouth in [place] tablet 00 the Medical morning. [facility] 2021-09 Yes [id number] 10mg Take 1 Univers (SINGULAIR) 2-09 tablet by ity of 10 mg 00:00: mouth in [place] tablet 00 the Medical morning. [facility] 2021-09 Yes [id number] 10mg Take 1 Univers (SINGULAIR) 2-09 tablet by ity of 10 mg 00:00: mouth in [place] tablet 00 the Medical morning. [facility] 2021-09 Yes [id number] 10mg Take 1 Univers (SINGULAIR) 2-09 tablet by ity of 10 mg 00:00: mouth in [place] tablet 00 the Medical morning. [facility] 2021-09 Yes [id number] 10mg Take 1 Univers (SINGULAIR) 2-09 tablet by ity of 10 mg 00:00: mouth in [place] tablet 00 the Medical morning. [facility] 2021-09 Yes [id number] 10mg Take 1 Univers (SINGULAIR) 2-09 tablet by ity of 10 mg 00:00: mouth in [place] tablet 00 the Medical morning. [facility] 2021-09 Yes [id number] 10mg Take 1 Univers (SINGULAIR) 2-09 tablet by ity of 10 mg 00:00: mouth in [place] tablet 00 the Medical morning. [facility] 2021-09 Yes [id number] 10mg Take 1 Univers (SINGULAIR) 2-09 tablet by ity of 10 mg 00:00: mouth in [place] tablet 00 the Medical morning. [facility] 2021-09 Yes [id number] 10mg Take 1 Univers (SINGULAIR) 2-09 tablet by ity of 10 mg 00:00: mouth in [place] tablet 00 the Medical morning. [facility] 2021-09 Yes [id number] 10mg Take 1 Univers (SINGULAIR) 2-09 tablet by ity of 10 mg 00:00: mouth in [place] tablet 00 the Medical morning. [facility] 2021-09 Yes [id number] 10mg Take 1 Univers (SINGULAIR) 2-09 tablet by ity of 10 mg 00:00: mouth in [place] tablet 00 the Medical morning. [facility] 2021-09 Yes [id number] 10mg Take 1 Univers (SINGULAIR) 2-09 tablet by ity of 10 mg 00:00: mouth in [place] tablet 00 the Medical morning. [facility] 2021-09 Yes [id number] 10mg Take 1 Univers (SINGULAIR) 2-09 tablet by ity of 10 mg 00:00: mouth in [place] tablet 00 the Medical morning. [facility] 2021-09 Yes [id number] 10mg Take 1 Univers (SINGULAIR) 2-09 tablet by ity of 10 mg 00:00: mouth in [place] tablet 00 the Medical morning. [facility] 2021-09 Yes [id number] 10mg Take 1 Univers (SINGULAIR) 2-09 tablet by ity of 10 mg 00:00: mouth in [place] tablet 00 the Medical morning. [facility] 2021-09 Yes [id number] 10mg Take 1 Univers (SINGULAIR) 2-09 tablet by ity of 10 mg 00:00: mouth in [place] tablet 00 the Medical morning. [facility] 2021-09 Yes [id number] 10mg Take 1 Univers (SINGULAIR) 2-09 tablet by ity of 10 mg 00:00: mouth in [place] tablet 00 the Medical morning. [facility] 2021-09 Yes [id number] 10mg Take 1 Univers (SINGULAIR) 2-09 tablet by ity of 10 mg 00:00: mouth in [place] tablet 00 the Medical morning. [facility] 2021-09 Yes [id number] 10mg Take 1 Univers (SINGULAIR) 2-09 tablet by ity of 10 mg 00:00: mouth in [place] tablet 00 the Medical morning. [facility] 2021-09 Yes [id number] 10mg Take 1 Univers (SINGULAIR) 2-09 tablet by ity of 10 mg 00:00: mouth in [place] tablet 00 the Medical morning. [facility] [id number] 10mg Take 1 [facility] (SINGULAIR) 2-09 tablet by ity of 10 mg 00:00: mouth in [place] tablet 00 the Medical morning. [facility] Yes [id number] 10mg Take 1 [facility] (SINGULAIR) 2-09 tablet by ity of 10 mg 00:00: mouth in [place] tablet 00 the Medical morning. [facility] Yes [id number] 10mg Take 1 [facility] (SINGULAIR) 2-09 tablet by ity of 10 mg 00:00: mouth in [place] tablet 00 the Medical morning. [facility] 2021-09 Yes [id number] 10mg Take 1 [facility] (SINGULAIR) 2-09 tablet by ity of 10 mg 00:00: mouth in [place] tablet 00 the Medical morning. [facility] 2021-09 Yes [id number] 10mg Take 1 [facility] (SINGULAIR) 2-09 tablet by ity of 10 mg 00:00: mouth in [place] tablet 00 the Medical morning. [facility] Yes [id number] 10mg Take 1 [facility] (SINGULAIR) 2-09 tablet by ity of 10 mg 00:00: mouth in [place] tablet 00 the Medical morning. [facility] 2021-09 Yes [id number] 10mg Take 1 [facility] (SINGULAIR) 2-09 tablet by ity of 10 mg 00:00: mouth in [place] tablet 00 the Medical morning. [facility] Yes [id number] 10mg Take 1 [facility] (SINGULAIR) 2-09 tablet by ity of 10 mg 00:00: mouth in [place] tablet 00 the Medical morning. [facility] Yes [id number] 10mg Take 1 [facility] (SINGULAIR) 2-09 tablet by ity of 10 mg 00:00: mouth in [place] tablet 00 the Medical morning. Chromo famotidine 2021-09 Yes TAKE 1 Unive rs [...] FOR Branch 10 DAYS CYANOCOBALA 2021-09 Yes [id number] INJECT 1ML Univers MIN 1,000 1-30 INTRAMUSCU ity of mcg/mL 00:00: LARLY [place] injection 00 EVERY TWO Medic al WEEKS Branch CYANOCOBALA 2021-09 Yes [id number] INJECT 1ML Univers MIN 1,000 1-30 INTRAMUSCU ity of mcg/mL 00:00: LARLY [place] injection 00 EVERY TWO Medic al WEEKS Branch CYANOCOBALA 2021-09 Yes [id number] INJECT 1ML Univers MIN 1,000 1-30 INTRAMUSCU ity of mcg/mL 00:00: LARLY [place] injection 00 EVERY TWO Medic al WEEKS Branch CYANOCOBALA 2021-09 Yes [id number] INJECT 1ML Univers MIN 1,000 1-30 INTRAMUSCU ity of mcg/mL 00:00: LARLY [place] injection 00 EVERY TWO Medic al WEEKS Branch CYANOCOBALA 2021-09 Yes [id number] INJECT 1ML Univers MIN 1,000 1-30 INTRAMUSCU ity of mcg/mL 00:00: LARLY [place] injection 00 EVERY TWO Medic al WEEKS Branch CYANOCOBALA 2021-09 Yes [id number] INJECT 1ML Univers MIN 1,000 1-30 INTRAMUSCU ity of mcg/mL 00:00: LARLY [place] injection 00 EVERY TWO Medic al WEEKS Branch CYANOCOBALA 2021-09 Yes [id number] INJECT 1ML Univers MIN 1,000 1-30 INTRAMUSCU ity of mcg/mL 00:00: LARLY [place] injection 00 EVERY TWO Medic al WEEKS Branch CYANOCOBALA 2021-09 Yes [id number] INJECT 1ML Univers MIN 1,000 1-30 INTRAMUSCU ity of mcg/mL 00:00: LARLY [place] injection 00 EVERY TWO Medic al WEEKS Branch CYANOCOBALA 2021-09 Yes [id number] INJECT 1ML Univers MIN 1,000 1-30 INTRAMUSCU ity of mcg/mL 00:00: LARLY [place] injection 00 EVERY TWO Medic al WEEKS Branch CYANOCOBALA 2021-09 Yes [id number] INJECT 1ML Univers MIN 1,000 1-30 INTRAMUSCU ity of mcg/mL 00:00: LARLY [place] injection 00 EVERY TWO Medic al WEEKS Branch CYANOCOBALA 2021-09 Yes [id number] INJECT 1ML [facility] MIN 1,000 1-30 INTRAMUSCU ity of mcg/mL 00:00: LARLY [place] injection 00 EVERY TWO Medic al WEEKS Branch CYANOCOBALA 2021-09 Yes [id number] INJECT 1ML [facility] MIN 1,000 1-30 INTRAMUSCU ity of mcg/mL 00:00: LARLY [place] injection 00 EVERY TWO Medic al WEEKS Branch CYANOCOBALA 2021-09 Yes [id number] INJECT 1ML [facility] MIN 1,000 1-30 INTRAMUSCU ity of mcg/mL 00:00: LARLY [place] injection 00 EVERY TWO Medic al WEEKS Branch CYANOCOBALA 2021-09 Yes [id number] INJECT 1ML [facility] MIN 1,000 1-30 INTRAMUSCU ity of mcg/mL 00:00: LARLY [place] injection 00 EVERY TWO Medic al WEEKS Branch CYANOCOBALA 2021-09 Yes [id number] INJECT 1ML [facility] MIN 1,000 1-30 INTRAMUSCU ity of mcg/mL 00:00: LARLY [place] injection 00 EVERY TWO Medic al WEEKS Branch CYANOCOBALA 2021-09 Yes [id number] INJECT 1ML [facility] MIN 1,000 1-30 INTRAMUSCU ity of mcg/mL 00:00: LARLY [place] injection 00 EVERY TWO Medic al WEEKS Branch CYANOCOBALA 2021-09 Yes [id number] INJECT 1ML [facility] MIN 1,000 1-30 INTRAMUSCU ity of mcg/mL 00:00: LARLY [place] injection 00 EVERY TWO Medic al WEEKS Branch CYANOCOBALA 2021-09 Yes [id number] INJECT 1ML [facility] MIN 1,000 1-30 INTRAMUSCU ity of mcg/mL 00:00: LARLY [place] injection 00 EVERY TWO Medic al WEEKS Branch CYANOCOBALA 2021-09 Yes [id number] INJECT 1ML [facility] MIN 1,000 1-30 INTRAMUSCU ity of mcg/mL 00:00: LARLY [place] injection 00 EVERY TWO Medic al WEEKS Branch CYANOCOBALA 2021-09 Yes [id number] INJECT 1ML [facility] MIN 1,000 1-30 INTRAMUSCU ity of mcg/mL 00:00: LARLY [place] injection 00 EVERY TWO Medic al WEEKS Branch CYANOCOBALA 2021-09 Yes [id number] INJECT 1ML [facility] MIN 1,000 1-30 INTRAMUSCU ity of mcg/mL 00:00: LARLY [place] injection 00 EVERY TWO Medic al WEEKS Branch CYANOCOBALA 2021-09 Yes [id number] INJECT 1ML [facility] MIN 1,000 1-30 INTRAMUSCU ity of mcg/mL 00:00: LARLY [place] injection 00 EVERY TWO Medic al WEEKS Branch CYANOCOBALA 2021-09 Yes [id number] INJECT 1ML [facility] MIN 1,000 1-30 INTRAMUSCU ity of mcg/mL 00:00: LARLY [place] injection 00 EVERY TWO Medic al WEEKS Branch CYANOCOBALA 2021-09 Yes [id number] INJECT 1ML [facility] MIN 1,000 1-30 INTRAMUSCU ity of mcg/mL 00:00: LARLY [place] injection 00 EVERY TWO Medic al WEEKS Branch CYANOCOBALA 2021-09 Yes [id number] INJECT 1ML [facility] MIN 1,000 1-30 INTRAMUSCU ity of mcg/mL 00:00: LARLY [place] injection 00 EVERY TWO Medic al WEEKS Branch CYANOCOBALA 2021-09 Yes [id number] INJECT 1ML [facility] MIN 1,000 1-30 INTRAMUSCU ity of mcg/mL 00:00: LARLY [place] injection 00 EVERY TWO Medic al WEEKS Branch CYANOCOBALA 2021-09 Yes [id number] INJECT 1ML [facility] MIN 1,000 1-30 INTRAMUSCU ity of mcg/mL 00:00: LARLY [place] injection 00 EVERY TWO Medic al WEEKS Branch CYANOCOBALA 2021-09 Yes [id number] INJECT 1ML [facility] MIN 1,000 1-30 INTRAMUSCU ity of mcg/mL 00:00: LARLY [place] injection 00 EVERY TWO Medic al WEEKS Branch CYANOCOBALA 2021-09 Yes [id number] INJECT 1ML [facility] MIN 1,000 1-30 INTRAMUSCU ity of mcg/mL 00:00: LARLY [place] injection 00 EVERY TWO Medic al WEEKS Branch CYANOCOBALA 2021-09 Yes [id number] INJECT 1ML [facility] MIN 1,000 1-30 INTRAMUSCU ity of mcg/mL 00:00: LARLY [place] injection 00 EVERY TWO Medic al WEEKS Branch CYANOCOBALA 2021-09 Yes [id number] INJECT 1ML [facility] MIN 1,000 1-30 INTRAMUSCU ity of mcg/mL 00:00: LARLY [place] injection 00 EVERY TWO Medic al WEEKS Branch CYANOCOBALA 2021-09 Yes [id number] INJECT 1ML [facility] MIN 1,000 1-30 INTRAMUSCU ity of mcg/mL 00:00: LARLY [place] injection 00 EVERY TWO Medic al WEEKS Branch CYANOCOBALA 2021-09 Yes [id number] INJECT 1ML [facility] MIN 1,000 1-30 INTRAMUSCU ity of mcg/mL 00:00: LARLY [place] injection 00 EVERY TWO Medic al WEEKS Branch CYANOCOBALA 2021-09- No [id number] INJECT 1ML [facility] MIN 1,000 1-30 02-07 INTRAMUSCU ity of mcg/mL 00:00: 00:00 LARLY [place] injection 00 :00 EVERY TWO Medic al WEEKS Branch CYANOCOBALA 2021-09- No [id number] INJECT 1ML [facility] MIN 1,000 1-30 02-07 INTRAMUSCU ity of mcg/mL 00:00: 00:00 LARLY [place] injection 00 :00 EVERY TWO Medic al WEEKS Branch CYANOCOBALA 2021-09- No [id number] INJECT 1ML [facility] MIN 1,000 1-30 02-07 INTRAMUSCU ity of mcg/mL 00:00: 00:00 LARLY [place] injection 00 :00 EVERY TWO Medic al WEEKS Branch CYANOCOBALA 2021-09- No [id number] INJECT 1ML [facility] MIN 1,000 1-30 02-07 INTRAMUSCU ity of mcg/mL 00:00: 00:00 LARLY [place] injection 00 :00 EVERY TWO Medic al WEEKS Branch CYANOCOBALA 2021-09- No [id number] INJECT 1ML [facility] MIN 1,000 1-30 02-07 INTRAMUSCU ity of mcg/mL 00:00: 00:00 LARLY [place] injection 00 :00 EVERY TWO Medic al WEEKS Branch CYANOCOBALA 2021-09- No [id number] INJECT 1ML [facility] MIN 1,000 1-30 02-07 INTRAMUSCU ity of mcg/mL 00:00: 00:00 LARLY [place] injection 00 :00 EVERY TWO Medic al WEEKS Branch CYANOCOBALA 2021-09- No [id number] INJECT 1ML [facility] MIN 1,000 1-30 02-07 INTRAMUSCU ity of mcg/mL 00:00: 00:00 LARLY [place] injection 00 :00 EVERY TWO Medic al WEEKS Branch CYANOCOBALA 2021-09- No [id number] INJECT 1ML [facility] MIN 1,000 1-30 02-07 INTRAMUSCU ity of mcg/mL 00:00: 00:00 LARLY [place] injection 00 :00 EVERY TWO Medic al WEEKS Branch CYANOCOBALA 2021-09- No [id number] INJECT 1ML [facility] MIN 1,000 1-30 02-07 INTRAMUSCU ity of mcg/mL 00:00: 00:00 LARLY [place] injection 00 :00 EVERY TWO Medic al WEEKS Branch CYANOCOBALA 2021-09- No [id number] INJECT 1ML [facility] MIN 1,000 1-30 02-07 INTRAMUSCU ity of mcg/mL 00:00: 00:00 LARLY [place] injection 00 :00 EVERY TWO Medic al WEEKS Branch CYANOCOBALA 2021-09- No [id number] INJECT 1ML [facility] MIN 1,000 1-30 02-07 INTRAMUSCU ity of mcg/mL 00:00: 00:00 LARLY [place] injection 00 :00 EVERY TWO Medic al WEEKS Branch CYANOCOBALA 2021-09- No [id number] INJECT 1ML [facility] MIN 1,000 1-30 -07 INTRAMUSCU ity of mcg/mL 00:00: 00:00 LARLY [place] injection 00 :00 EVERY TWO Medic al WEEKS Branch CYANOCOBALA 2021-09- No [id number] INJECT 1ML [facility] MIN 1,000 30 - INTRAMUSCU ity of mcg/mL 00:00: 00:00 LARLY [place] injection 00 :00 EVERY TWO Medic al WEEKS Branch CYANOCOBALA 2021-09- No [id number] INJECT 1ML [facility] MIN 1,000 10-25 INTRAMUSCU ity of mcg/mL 00:00: 00:00 LARLY [...] evening. Take with meals. levothyroxi 2021- Yes [id number] 50ug Take 1 [facility] ne 50 mcg 1-03 tablet by ity o f tablet 00:00: mouth [place] 00 every Medical morning. Branch levothyroxi 2021- Yes [id number] 50ug Take 1 [facility] ne 50 mcg 1-03 tablet by ity o f tablet 00:00: mouth [place] 00 every Medical morning. Branch levothyroxi 2021- Yes [id number] 50ug Take 1 [facility] ne 50 mcg 1-03 tablet by ity o f tablet 00:00: mouth [place] 00 every Medical morning. Branch levothyroxi 2021-09 Yes [id number] 50ug Take 1 [facility] ne 50 mcg 1-03 tablet by ity o f tablet 00:00: mouth [place] 00 every Medical morning. Branch levothyroxi 2021-09 Yes [id number] 50ug Take 1 [facility] ne 50 mcg 1-03 tablet by ity o f tablet 00:00: mouth [place] 00 every Medical morning. Branch levothyroxi 2021-09 Yes [id number] 50ug Take 1 [facility] ne 50 mcg 1-03 tablet by ity o f tablet 00:00: mouth [place] 00 every Medical morning. Branch levothyroxi 2021-09 Yes [id number] 50ug Take 1 [facility] ne 50 mcg 1-03 tablet by ity o f tablet 00:00: mouth [place] 00 every Medical morning. Branch levothyroxi 2021-09 Yes [id number] 50ug Take 1 [facility] ne 50 mcg 1-03 tablet by ity o f tablet 00:00: mouth [place] 00 every Medical morning. Branch levothyroxi 2021-09 Yes [id number] 50ug Take 1 [facility] ne 50 mcg 1-03 tablet by ity o f tablet 00:00: mouth [place] 00 every Medical morning. Branch levothyroxi 2021-09 Yes [id number] 50ug Take 1 [facility] ne 50 mcg 1-03 tablet by ity o f tablet 00:00: mouth [place] 00 every Medical morning. Branch levothyroxi 2021-09 Yes [id number] 50ug Take 1 [facility] ne 50 mcg 1-03 tablet by ity o f tablet 00:00: mouth [place] 00 every Medical morning. Branch levothyroxi 2021-09 Yes [id number] 50ug Take 1 [facility] ne 50 mcg 1-03 tablet by ity o f tablet 00:00: mouth [place] 00 every Medical morning. Branch levothyroxi 2021-09 Yes [id number] 50ug Take 1 [facility] ne 50 mcg 1-03 tablet by ity o f tablet 00:00: mouth [place] 00 every Medical morning. Branch levothyroxi 2021-09 Yes [id number] 50ug Take 1 [facility] ne 50 mcg 1-03 tablet by ity o f tablet 00:00: mouth [place] 00 every Medical morning. Branch levothyroxi 2021-09 Yes [id number] 50ug Take 1 [facility] ne 50 mcg 1-03 tablet by ity o f tablet 00:00: mouth [place] 00 every Medical morning. Branch levothyroxi 2021-09 Yes [id number] 50ug Take 1 [facility] ne 50 mcg 1-03 tablet by ity o f tablet 00:00: mouth [place] 00 every Medical morning. Branch levothyroxi 2021-09 Yes [id number] 50ug Take 1 [facility] ne 50 mcg 1-03 tablet by ity o f tablet 00:00: mouth [place] 00 every Medical morning. Branch levothyroxi 2021-09 Yes [id number] 50ug Take 1 [facility] ne 50 mcg 1-03 tablet by ity o f tablet 00:00: mouth [place] 00 every Medical morning. Branch levothyroxi 2021-09 Yes [id number] 50ug Take 1 [facility] ne 50 mcg 1-03 tablet by ity o f tablet 00:00: mouth [place] 00 every Medical morning. Branch levothyroxi 2021-09 Yes [id number] 50ug Take 1 [facility] ne 50 mcg 1-03 tablet by ity o f tablet 00:00: mouth [place] 00 every Medical morning. Branch levothyroxi 2021-09 Yes [id number] 50ug Take 1 [facility] ne 50 mcg 1-03 tablet by ity o f tablet 00:00: mouth [place] 00 every Medical morning. Branch levothyroxi 2021-09 Yes [id number] 50ug Take 1 [facility] ne 50 mcg 1-03 tablet by ity o f tablet 00:00: mouth [place] 00 every Medical morning. Branch levothyroxi 2021-09 Yes [id number] 50ug Take 1 [facility] ne 50 mcg 1-03 tablet by ity o f tablet 00:00: mouth [place] 00 every Medical morning. Branch levothyroxi 2021-09 Yes [id number] 50ug Take 1 [facility] ne 50 mcg 1-03 tablet by ity o f tablet 00:00: mouth [place] 00 every Medical morning. Branch levothyroxi 2021-09 Yes [id number] 50ug Take 1 [facility] ne 50 mcg 1-03 tablet by ity o f tablet 00:00: mouth [place] 00 every Medical morning. Branch levothyroxi 2021-09 Yes [id number] 50ug Take 1 [facility] ne 50 mcg 1-03 tablet by ity o f tablet 00:00: mouth [place] 00 every Medical morning. Branch levothyroxi 2021-09 Yes [id number] 50ug Take 1 [facility] ne 50 mcg 1-03 tablet by ity o f tablet 00:00: mouth [place] 00 every Medical morning. Branch levothyroxi 2021-09 Yes [id number] 50ug Take 1 [facility] ne 50 mcg 1-03 tablet by ity o f tablet 00:00: mouth [place] 00 every Medical morning. Branch levothyroxi 2021-09 Yes [id number] 50ug Take 1 [facility] ne 50 mcg 1-03 tablet by ity o f tablet 00:00: mouth [place] 00 every Medical morning. Branch levothyroxi 2021-09 Yes [id number] 50ug Take 1 [facility] ne 50 mcg 1-03 tablet by ity o f tablet 00:00: mouth [place] 00 every Medical morning. Branch levothyroxi 2021-09 Yes [id number] 50ug Take 1 [facility] ne 50 mcg 1-03 tablet by ity o f tablet 00:00: mouth [place] 00 every Medical morning. Branch levothyroxi 2021-09 Yes [id number] 50ug Take 1 [facility] ne 50 mcg 1-03 tablet by ity o f tablet 00:00: mouth [place] 00 every Medical morning. Branch levothyroxi 2021-09 Yes [id number] 50ug Take 1 [facility] ne 50 mcg 1-03 tablet by ity o f tablet 00:00: mouth [place] 00 every Medical morning. Branch levothyroxi 2021-09 Yes [id number] 50ug Take 1 [facility] ne 50 mcg 1-03 tablet by ity o f tablet 00:00: mouth [place] 00 every Medical morning. Branch levothyroxi 2021-09 Yes [id number] 50ug Take 1 [facility] ne 50 mcg 1-03 tablet by ity o f tablet 00:00: mouth [place] 00 every Medical morning. Branch levothyroxi 2021-09 Yes [id number] 50ug Take 1 [facility] ne 50 mcg 1-03 tablet by ity o f tablet 00:00: mouth [place] 00 every Medical morning. Branch levothyroxi 2021-09 Yes [id number] 50ug Take 1 [facility] ne 50 mcg 1-03 tablet by ity o f tablet 00:00: mouth [place] 00 every Medical morning. Branch levothyroxi 2021-09 Yes [id number] 50ug Take 1 [facility] ne 50 mcg 1-03 tablet by ity o f tablet 00:00: mouth [place] 00 every Medical morning. Branch levothyroxi 2021-09 Yes [id number] 50ug Take 1 [facility] ne 50 mcg 1-03 tablet by ity o f tablet 00:00: mouth [place] 00 every Medical morning. Branch levothyroxi 2021-09 Yes [id number] 50ug Take 1 [facility] ne 50 mcg 1-03 tablet by ity o f tablet 00:00: mouth [place] 00 every Medical morning. Branch levothyroxi 2021-09 Yes [id number] 50ug Take 1 [facility] ne 50 mcg 1-03 tablet by ity o f tablet 00:00: mouth [place] 00 every Medical morning. Branch levothyroxi 2021-09 Yes [id number] 50ug Take 1 [facility] ne 50 mcg 1-03 tablet by ity o f tablet 00:00: mouth [place] 00 every Medical morning. Branch levothyroxi 2021-09 Yes [id number] 50ug Take 1 [facility] ne 50 mcg 1-03 tablet by ity o f tablet 00:00: mouth [place] 00 every Medical morning. Branch levothyroxi 2021-09 Yes [id number] 50ug Take 1 [facility] ne 50 mcg 1-03 tablet by ity o f tablet 00:00: mouth [place] 00 every Medical morning. Branch levothyroxi 2021-09 Yes [id number] 50ug Take 1 [facility] ne 50 mcg 1-03 tablet by ity o f tablet 00:00: mouth [place] 00 every Medical morning. Branch levothyroxi 2021-09 Yes [id number] 50ug Take 1 [facility] ne 50 mcg 1-03 tablet by ity o f tablet 00:00: mouth [place] 00 every Medical morning. Branch levothyroxi 2021-09 Yes [id number] 50ug Take 1 [facility] ne 50 mcg 1-03 tablet by ity o f tablet 00:00: mouth [place] 00 every Medical morning. Branch levothyroxi 2021-09 Yes [id number] 50ug Take 1 [facility] ne 50 mcg 1-03 tablet by ity o f tablet 00:00: mouth [place] 00 every Medical morning. Branch levothyroxi 2021-09 Yes [id number] 50ug Take 1 [facility] ne 50 mcg 1-03 tablet by ity o f tablet 00:00: mouth [place] 00 every Medical morning. Branch levothyroxi 2021-09 Yes [id number] 50ug Take 1 [facility] ne 50 mcg 1-03 tablet by ity o f tablet 00:00: mouth [place] 00 every Medical morning. Branch levothyroxi 2021-09 Yes [id number] 50ug Take 1 [facility] ne 50 mcg 1-03 tablet by ity o f tablet 00:00: mouth [place] 00 every Medical morning. Branch levothyroxi 2021-09 Yes [id number] 50ug Take 1 [facility] ne 50 mcg 1-03 tablet by ity o f tablet 00:00: mouth [place] 00 every Medical morning. Branch levothyroxi 2021-09 Yes [id number] 50ug Take 1 [facility] ne 50 mcg 1-03 tablet by ity o f tablet 00:00: mouth [place] 00 every Medical morning. Branch levothyroxi 2021-09 Yes [id number] 50ug Take 1 [facility] ne 50 mcg 1-03 tablet by ity o f tablet 00:00: mouth [place] 00 every Medical morning. Branch levothyroxi 2021-09 Yes [id number] 50ug Take 1 [facility] ne 50 mcg 1-03 tablet by ity o f tablet 00:00: mouth [place] 00 every Medical morning. Branch levothyroxi 2021-09 Yes [id number] 50ug Take 1 [facility] ne 50 mcg 1-03 tablet by ity o f tablet 00:00: mouth [place] 00 every Medical morning. Branch levothyroxi 2021-09 Yes [id number] 50ug Take 1 [facility] ne 50 mcg 1-03 tablet by ity o f tablet 00:00: mouth [place] 00 every Medical morning. Branch levothyroxi 2021-09 Yes [id number] 50ug Take 1 [facility] ne 50 mcg 1-03 tablet by ity o f tablet 00:00: mouth [place] 00 every Medical morning. Branch levothyroxi 2021-09 Yes [id number] 50ug Take 1 [facility] ne 50 mcg 1-03 tablet by ity o f tablet 00:00: mouth [place] 00 every Medical morning. Branch levothyroxi 2021-09 Yes [id number] 50ug Take 1 [facility] ne 50 mcg 1-03 tablet by ity o f tablet 00:00: mouth [place] 00 every Medical morning. Branch levothyroxi 2021-09 Yes [id number] 50ug Take 1 [facility] ne 50 mcg 1-03 tablet by ity o f tablet 00:00: mouth [place] 00 every Medical morning. Branch levothyroxi 2021-09 Yes [id number] 50ug Take 1 [facility] ne 50 mcg 1-03 tablet by ity o f tablet 00:00: mouth [place] 00 every Medical morning. Branch levothyroxi 2021-09 Yes [id number] 50ug Take 1 [facility] ne 50 mcg 1-03 tablet by ity o f tablet 00:00: mouth [place] 00 every Medical morning. Branch levothyroxi 2021-09 Yes [id number] 50ug Take 1 [facility] ne 50 mcg 1-03 tablet by ity o f tablet 00:00: mouth [place] 00 every Medical morning. Branch levothyroxi 2021-09 Yes [id number] 50ug Take 1 [facility] ne 50 mcg 1-03 tablet by ity o f tablet 00:00: mouth [place] 00 every Medical morning. Branch levothyroxi 2021-09 Yes [id number] 50ug Take 1 [facility] ne 50 mcg 1-03 tablet by ity o f tablet 00:00: mouth [place] 00 every Medical morning. Chromo levothyroxi 2021-09 Yes [id number] 50ug Take 1 [facility] ne 50 mcg 1-03 tablet by ity o f tablet 00:00: mouth [place] 00 every Medical morning. Chromo levothyroxi 2021-09 Yes [id number] 50ug Take 1 [facility] ne 50 mcg 1-03 tablet by ity o f tablet 00:00: mouth [place] 00 every Medical morning. Chromo levothyroxi 2021-09 Yes [id number] 50ug Take 1 [facility] ne 50 mcg 1-03 tablet by ity o f tablet 00:00: mouth [place] 00 every Medical morning. Chromo levothyroxi 2021-09- No [id number] 50ug Take 1 [facility] ne 50 mcg 1-03 04-10 tablet by ity of tablet 00:00: 00:00 mouth [place] 00 :00 every Medical morning. Chromo DOCUSATE 2021-09 Yes Take by [facility] SODIUM 1-01 mouth. ity of (COLACE 08:06: [place] ORAL) 37 [facility] DOCUSATE 2021-09 Yes Take by [facility] SODIUM 1-01 mouth. ity of (COLACE 08:06: [place] ORAL) 37 [facility] DOCUSATE 2021-09 Yes Take by [facility] SODIUM 1-01 mouth. ity of (COLACE 08:06: [...] Medical Branch DOCUSATE 2021-09 Yes Take by [facility] SODIUM 1-01 mouth. ity of (COLACE 08:06: [place] ORAL) 37 Medical Branch DOCUSATE 2021-09 Yes Take by [facility] SODIUM 1- mouth. ity of (COLACE 08:06: [place] ORAL) 37 Medical Branch DOCUSATE 2021-09 Yes Take by [facility] SODIUM 1- mouth. ity of (COLACE 08:06: [place] ORAL) 37 Medical Branch DOCUSATE 2021-09 Yes Take by [facility] SODIUM 1- mouth. ity of (COLACE 08:06: [place] ORAL) 37 Medical Branch DOCUSATE 2021-09 Yes Take by [facility] SODIUM 1- mouth. ity of (COLACE 08:06: [place] ORAL) 37 Medical Branch DOCUSATE 2021-09 Yes Take by [facility] SODIUM 1- mouth. ity of (COLACE 08:06: [place] ORAL) 37 Medical Branch DOCUSATE 2021-09 Yes Take by [facility] SODIUM 1- mouth. ity of (COLACE 08:06: [place] ORAL) 37 Medical Branch DOCUSATE 2021-09 Yes Take by [facility] SODIUM - mouth. ity of (COLACE 08:06: [place] ORAL) Medical Branch diltiazem 2021-09 Yes [id number] 120mg Take 1 U nivers 120 mg 24 1- capsule by ity of hr capsule 00:00: mouth in [place] as 00 the Medical morning Branch and 1 capsule in the evening. fluticasone 2021-09 Yes [id number] 2{puff} Inhale 2 [facility] propionate 1-01 Puffs ity of (FLOVENT 00:00: every 12 [place] HFA) 110 00 (twelve) Medical mcg/actuati hours. Branch on inhaler Rinse mouth after each use. levothyroxi 2021-09 Yes [id number] 50ug Take 1 [facility] ne 50 mcg 1-01 tablet by ity o f tablet 00:00: mouth [place] 00 every Medical morning. Branch metformin 2021-09 Yes [id number] 500mg Take 1 U nivers ER 500 mg 1-01 tablet by ity o f 24 hr 00:00: mouth [place] tablet 00 daily with Medical breakfast. Branch pantoprazol 2021-09 Yes [id number] 40mg Take 1 [facility] e 40 mg EC 1-01 tablet by ity of tablet 00:00: mouth in [place] 00 the Medical morning. Branch pregabalin 2021-09 Yes [id number] 150mg Take 1 [facility] 150 mg 1-01 capsule by ity of capsule 00:00: mouth in [place] 00 the Medical morning Branch and 1 capsule at noon and 1 capsule in the evening. rosuvastati 2021-09 Yes [id number] 10mg Take 1 [facility] n 10 mg 1-01 tablet by ity of tablet 00:00: mouth at [place] 00 bedtime. Medical Branch SUMAtriptan 2021-09 Yes [id number] 50mg Take 1 [facility] 50 mg 1-01 tablet by ity of tablet 00:00: mouth as [place] 00 needed for Medical Migraine. Branch diltiazem 2021-09 Yes [id number] 120mg Take 1 U nivers 120 mg 24 1- capsule by ity of hr capsule 00:00: mouth in [facility] as 00 the Medical morning Branch and 1 capsule in the evening. fluticasone 2021-09 Yes [id number] 2{puff} Inhale 2 [facility] propionate 1-01 Puffs ity of (FLOVENT 00:00: every 12 [place] HFA) 110 00 (twelve) Medical mcg/actuati hours. Branch on inhaler Rinse mouth after each use. levothyroxi 2021-09 Yes [id number] 50ug Take 1 [facility] ne 50 mcg 1-01 tablet by ity o f tablet 00:00: mouth [place] 00 every Medical morning. Branch metformin 2021-09 Yes [id number] 500mg Take 1 U nivers ER 500 mg 1-01 tablet by ity o f 24 hr 00:00: mouth [place] tablet 00 daily with Medical breakfast. Branch pantoprazol 2021-09 Yes [id number] 40mg Take 1 [facility] e 40 mg EC 1-01 tablet by ity of tablet 00:00: mouth in [place] 00 the Medical morning. Branch pregabalin 2021-09 Yes [id number] 150mg Take 1 [facility] 150 mg 1-01 capsule by ity of capsule 00:00: mouth in [place] 00 the Medical morning Branch and 1 capsule at noon and 1 capsule in the evening. rosuvastati 2021-09 Yes [id number] 10mg Take 1 [facility] n 10 mg 1-01 tablet by ity of tablet 00:00: mouth at [place] [address] bedtime. Medical Branch SUMAtriptan 2021-09 Yes [id number] 50mg Take 1 [facility] 50 mg 1-01 tablet by ity of tablet 00:00: mouth as [place] 00 needed for Medical Migraine. Branch diltiazem 2021-09 Yes [id number] 120mg Take 1 U nivers 120 mg 24 1-01 capsule by ity of hr capsule 00:00: mouth in [place] as 00 the Medical morning Branch and 1 capsule in the evening. fluticasone 2021-09 Yes [id number] 2{puff} Inhale 2 [facility] propionate 1-01 Puffs ity of (FLOVENT 00:00: every 12 [place] HFA) 110 00 (twelve) Medical mcg/actuati hours. Branch on inhaler Rinse mouth after each use. metformin 2021-09 Yes [id number] 500mg Take 1 U nivers ER 500 mg 1-01 tablet by ity o f 24 hr 00:00: mouth [place] tablet 00 daily with Medical breakfast. Branch pantoprazol 2021-09 Yes [id number] 40mg Take 1 [facility] e 40 mg EC 1-01 tablet by ity of tablet 00:00: mouth in [place] 00 the Medical morning. Branch pregabalin 2021-09 Yes [id number] 150mg Take 1 [facility] 150 mg 1-01 capsule by ity of capsule 00:00: mouth in [place] 00 the Medical morning Branch and 1 capsule at noon and 1 capsule in the evening. rosuvastati 2021-09 Yes [id number] 10mg Take 1 [facility] n 10 mg 1-01 tablet by ity of tablet 00:00: mouth at [place] [address] bedtime. Medical Branch SUMAtriptan 2021-09 Yes [id number] 50mg Take 1 [facility] 50 mg 1-01 tablet by ity of tablet 00:00: mouth as [place] 00 needed for Medical Migraine. Branch diltiazem 2021-09 Yes [id number] 120mg Take 1 U nivers 120 mg 24 1-01 capsule by ity of hr capsule 00:00: mouth in [place] 00 the Medical morning Branch and 1 capsule in the evening. fluticasone 2021-09 Yes [id number] 2{puff} Inhale 2 [facility] propionate 1-01 Puffs ity of (FLOVENT 00:00: every 12 [place] HFA) 110 00 (twelve) Medical mcg/actuati hours. Branch on inhaler Rinse mouth after each use. metformin 2021-09 Yes [id number] 500mg Take 1 U nivers ER 500 mg 1-01 tablet by ity o f 24 hr 00:00: mouth [place] tablet 00 daily with Medical breakfast. Branch pantoprazol 2021-09 Yes [id number] 40mg Take 1 [facility] e 40 mg EC 1-01 tablet by ity of tablet 00:00: mouth in [place] 00 the Medical morning. Branch pregabalin 2021-09 Yes [id number] 150mg Take 1 [facility] 150 mg 1-01 capsule by ity of capsule 00:00: mouth in [place] 00 the Medical morning Branch and 1 capsule at noon and 1 capsule in the evening. rosuvastati 2021-09 Yes [id number] 10mg Take 1 [facility] n 10 mg 1-01 tablet by ity of tablet 00:00: mouth at [place] 00 bedtime. Medical Branch SUMAtriptan 2021-09 Yes [id number] 50mg Take 1 [facility] 50 mg 1-01 tablet by ity of tablet 00:00: mouth as [place] 00 needed for Medical Migraine. Branch diltiazem 2021-09 Yes [id number] 120mg Take 1 U nivers 120 mg 24 1-01 capsule by ity of hr capsule 00:00: mouth in [facility] as 00 the Medical morning Branch and 1 capsule in the evening. fluticasone 2021-09 Yes [id number] 2{puff} Inhale 2 [facility] propionate 1-01 Puffs ity of (FLOVENT 00:00: every 12 [place] HFA) 110 00 (twelve) Medical mcg/actuati hours. Branch on inhaler Rinse mouth after each use. metformin 2021-09 Yes [id number] 500mg Take 1 U nivers ER 500 mg 1-01 tablet by ity o f 24 hr 00:00: mouth [place] tablet 00 daily with Medical breakfast. Branch pantoprazol 2021-09 Yes [id number] 40mg Take 1 [facility] e 40 mg EC 1-01 tablet by ity of tablet 00:00: mouth in [place] 00 the Medical morning. Branch pregabalin 2021-09 Yes [id number] 150mg Take 1 [facility] 150 mg 1-01 capsule by ity of capsule 00:00: mouth in [place] 00 the Medical morning Branch and 1 capsule at noon and 1 capsule in the evening. rosuvastati 2021-09 Yes [id number] 10mg Take 1 [facility] n 10 mg 1-01 tablet by ity of tablet 00:00: mouth at [place] 00 bedtime. Medical Branch SUMAtriptan 2021-09 Yes [id number] 50mg Take 1 [facility] 50 mg 1-01 tablet by ity of tablet 00:00: mouth as [place] 00 needed for Medical Migraine. Branch diltiazem 2021-09 Yes [id number] 120mg Take 1 U nivers 120 mg 24 1-01 capsule by ity of hr capsule 00:00: mouth in [place] 00 the Medical morning Branch and 1 capsule in the evening. fluticasone 2021-09 Yes [id number] 2{puff} Inhale 2 [facility] propionate 1-01 Puffs ity of (FLOVENT 00:00: every 12 [place] HFA) 110 00 (twelve) Medical mcg/actuati hours. Branch on inhaler Rinse mouth after each use. metformin 2021-09 Yes [id number] 500mg Take 1 U nivers ER 500 mg 1-01 tablet by ity o f 24 hr 00:00: mouth [place] tablet 00 daily with Medical breakfast. Branch pantoprazol 2021-09 Yes [id number] 40mg Take 1 [facility] e 40 mg EC 1-01 tablet by ity of tablet 00:00: mouth in [place] 00 the Medical morning. Branch pregabalin 2021-09 Yes [id number] 150mg Take 1 [facility] 150 mg 1-01 capsule by ity of capsule 00:00: mouth in [place] 00 the Medical morning Branch and 1 capsule at noon and 1 capsule in the evening. rosuvastati 2021-09 Yes [id number] 10mg Take 1 [facility] n 10 mg 1-01 tablet by ity of tablet 00:00: mouth at [place] [address] bedtime. Medical Branch SUMAtriptan 2021-09 Yes [id number] 50mg Take 1 [facility] 50 mg 1-01 tablet by ity of tablet 00:00: mouth as [place] 00 needed for Medical Migraine. Branch diltiazem 2021-09 Yes [id number] 120mg Take 1 U nivers 120 mg 24 1-01 capsule by ity of hr capsule 00:00: mouth in [facility] as 00 the Medical morning Branch and 1 capsule in the evening. fluticasone 2021-09 Yes [id number] 2{puff} Inhale 2 [facility] propionate 1-01 Puffs ity of (FLOVENT 00:00: every 12 [place] HFA) 110 00 (twelve) Medical mcg/actuati hours. Branch on inhaler Rinse mouth after each use. metformin 2021-09 Yes [id number] 500mg Take 1 U nivers ER 500 mg 1-01 tablet by ity o f 24 hr 00:00: mouth [place] tablet 00 daily with Medical breakfast. Branch pantoprazol 2021-09 Yes [id number] 40mg Take 1 [facility] e 40 mg EC 1-01 tablet by ity of tablet 00:00: mouth in [place] 00 the Medical morning. Branch pregabalin 2021-09 Yes [id number] 150mg Take 1 [facility] 150 mg 1-01 capsule by ity of capsule 00:00: mouth in [place] 00 the Medical morning Branch and 1 capsule at noon and 1 capsule in the evening. rosuvastati 2021-09 Yes [id number] 10mg Take 1 [facility] n 10 mg 1-01 tablet by ity of tablet 00:00: mouth at [place] 00 bedtime. Medical Branch SUMAtriptan 2021-09 Yes [id number] 50mg Take 1 [facility] 50 mg 1-01 tablet by ity of tablet 00:00: mouth as [place] 00 needed for Medical Migraine. Branch diltiazem 2021-09 Yes [id number] 120mg Take 1 U nivers 120 mg 24 1-01 capsule by ity of hr capsule 00:00: mouth in [facility] as 00 the Medical morning Branch and 1 capsule in the evening. fluticasone 2021-09 Yes [id number] 2{puff} Inhale 2 [facility] propionate 1-01 Puffs ity of (FLOVENT 00:00: every 12 [place] HFA) 110 00 (twelve) Medical mcg/actuati hours. Branch on inhaler Rinse mouth after each use. metformin 2021-09 Yes [id number] 500mg Take 1 U nivers ER 500 mg 1-01 tablet by ity o f 24 hr 00:00: mouth [place] tablet 00 daily with Medical breakfast. Branch pantoprazol 2021-09 Yes [id number] 40mg Take 1 [facility] e 40 mg EC 1-01 tablet by ity of tablet 00:00: mouth in [place] 00 the Medical morning. Branch pregabalin 2021-09 Yes [id number] 150mg Take 1 [facility] 150 mg 1-01 capsule by ity of capsule 00:00: mouth in [place] 00 the Medical morning Branch and 1 capsule at noon and 1 capsule in the evening. rosuvastati 2021-09 Yes [id number] 10mg Take 1 [facility] n 10 mg 1-01 tablet by ity of tablet 00:00: mouth at [place] 00 bedtime. Medical Branch SUMAtriptan 2021-09 Yes [id number] 50mg Take 1 [facility] 50 mg 1-01 tablet by ity of tablet 00:00: mouth as [place] 00 needed for Medical Migraine. Branch diltiazem 2021-09 Yes [id number] 120mg Take 1 U nivers 120 mg 24 1-01 capsule by ity of hr capsule 00:00: mouth in [place] as 00 the Medical morning Branch and 1 capsule in the evening. fluticasone 2021-09 Yes [id number] 2{puff} Inhale 2 [facility] propionate 1-01 Puffs ity of (FLOVENT 00:00: every 12 [place] HFA) 110 00 (twelve) Medical mcg/actuati hours. Branch on inhaler Rinse mouth after each use. metformin 2021-09 Yes [id number] 500mg Take 1 U nivers ER 500 mg 1-01 tablet by ity o f 24 hr 00:00: mouth [place] tablet 00 daily with Medical breakfast. Branch pantoprazol 2021-09 Yes [id number] 40mg Take 1 [facility] e 40 mg EC 1-01 tablet by ity of tablet 00:00: mouth in [place] 00 the Medical morning. Branch pregabalin 2021-09 Yes [id number] 150mg Take 1 [facility] 150 mg 1-01 capsule by ity of capsule 00:00: mouth in [place] 00 the Medical morning Branch and 1 capsule at noon and 1 capsule in the evening. rosuvastati 2021-09 Yes [id number] 10mg Take 1 [facility] n 10 mg 1-01 tablet by ity of tablet 00:00: mouth at [place] 00 bedtime. Medical Branch SUMAtriptan 2021-09 Yes [id number] 50mg Take 1 [facility] 50 mg 1-01 tablet by ity of tablet 00:00: mouth as [place] 00 needed for Medical Migraine. Branch diltiazem 2021-09 Yes [id number] 120mg Take 1 U nivers 120 mg 24 1-01 capsule by ity of hr capsule 00:00: mouth in [place] as 00 the Medical morning Branch and 1 capsule in the evening. fluticasone 2021-09 Yes [id number] 2{puff} Inhale 2 [facility] propionate 1-01 Puffs ity of (FLOVENT 00:00: every 12 [place] HF) 110 00 (twelve) Medical mcg/actuati hours. Branch on inhaler Rinse mouth after each use. metformin 2021-09 Yes [id number] 500mg Take 1 U nivers ER 500 mg 1-01 tablet by ity o f 24 hr 00:00: mouth [place] tablet 00 daily with Medical breakfast. Branch pantoprazol 2021-09 Yes [id number] 40mg Take 1 [facility] e 40 mg EC 1- tablet by ity of tablet 00:00: mouth in [place] 00 the Medical morning. Branch pregabalin 2021-09 Yes [id number] 150mg Take 1 [facility] 150 mg 1-01 capsule by ity of capsule 00:00: mouth in [place] 00 the Medical morning Branch and 1 capsule at noon and 1 capsule in the evening. rosuvastati 2021-09 Yes [id number] 10mg Take 1 [facility] n 10 mg 1-01 tablet by ity of tablet 00:00: mouth at [place] 00 bedtime. Medical Branch SUMAtriptan 2021-09 Yes [id number] 50mg Take 1 [facility] 50 mg 1-01 tablet by ity of tablet 00:00: mouth as [place] 00 needed for Medical Migraine. Branch diltiazem 2021-09 Yes [id number] 120mg Take 1 [facility] nivers 120 mg 24 1-01 capsule by ity of hr capsule 00:00: mouth in [facility] as 00 the Medical morning Branch and 1 capsule in the evening. fluticasone 2021-09 Yes [id number] 2{puff} Inhale 2 [facility] propionate 1-01 Puffs ity of (FLOVENT 00:00: every 12 [place] HFA) 110 00 (twelve) Medical mcg/actuati hours. Branch on inhaler Rinse mouth after each use. metformin 2021-09 Yes [id number] 500mg Take 1 U nivers ER 500 mg 1-01 tablet by ity o f 24 hr 00:00: mouth [place] tablet 00 daily with Medical breakfast. Branch pantoprazol 2021-09 Yes [id number] 40mg Take 1 [facility] e 40 mg EC 1-01 tablet by ity of tablet 00:00: mouth in [place] 00 the Medical morning. Branch pregabalin 2021-09 Yes [id number] 150mg Take 1 [facility] 150 mg 1-01 capsule by ity of capsule 00:00: mouth in [place] 00 the Medical morning Branch and 1 capsule at noon and 1 capsule in the evening. rosuvastati 2021-09 Yes [id number] 10mg Take 1 [facility] n 10 mg 1-01 tablet by ity of tablet 00:00: mouth at [place] 00 bedtime. Medical Branch SUMAtriptan 2021-09 Yes [id number] 50mg Take 1 [facility] 50 mg 1-01 tablet by ity of tablet 00:00: mouth as [place] 00 needed for Medical Migraine. Branch diltiazem 2021-09 Yes [id number] 120mg Take 1 [facility] nivers 120 mg 24 1-01 capsule by ity of hr capsule 00:00: mouth in [facility] as 00 the Medical morning Branch and 1 capsule in the evening. fluticasone 2021-09 Yes [id number] 2{puff} Inhale 2 [facility] propionate 1-01 Puffs ity of (FLOVENT 00:00: every 12 [place] HFA) 110 00 (twelve) Medical mcg/actuati hours. Branch on inhaler Rinse mouth after each use. metformin 2021-09 Yes [id number] 500mg Take 1 U nivers ER 500 mg 1-01 tablet by ity o f 24 hr 00:00: mouth [place] tablet 00 daily with Medical breakfast. Branch pantoprazol 2021-09 Yes [id number] 40mg Take 1 [facility] e 40 mg EC 1-01 tablet by ity of tablet 00:00: mouth in [place] 00 the Medical morning. Branch pregabalin 2021-09 Yes [id number] 150mg Take 1 [facility] 150 mg 1-01 capsule by ity of capsule 00:00: mouth in [place] 00 the Medical morning Branch and 1 capsule at noon and 1 capsule in the evening. rosuvastati 2021-09 Yes [id number] 10mg Take 1 [facility] n 10 mg 1-01 tablet by ity of tablet 00:00: mouth at [place] [address] bedtime. Medical Branch SUMAtriptan 2021-09 Yes [id number] 50mg Take 1 [facility] 50 mg 1-01 tablet by ity of tablet 00:00: mouth as [place] 00 needed for Medical Migraine. Branch diltiazem 2021-09 Yes [id number] 120mg Take 1 [facility] nivers 120 mg 24 1-01 capsule by ity of hr capsule 00:00: mouth in [place] as 00 the Medical morning Branch and 1 capsule in the evening. fluticasone 2021-09 Yes [id number] 2{puff} Inhale 2 [facility] propionate 1-01 Puffs ity of (FLOVENT 00:00: every 12 [place] HF) 110 00 (twelve) Medical mcg/actuati hours. Branch on inhaler Rinse mouth after each use. metformin 2021-09 Yes [id number] 500mg Take 1 U nivers ER 500 mg 1-01 tablet by ity o f 24 hr 00:00: mouth [place] tablet 00 daily with Medical breakfast. Branch pantoprazol 2021-09 Yes [id number] 40mg Take 1 [facility] e 40 mg EC 1-01 tablet by ity of tablet 00:00: mouth in [place] 00 the Medical morning. Branch pregabalin 2021-09 Yes [id number] 150mg Take 1 [facility] 150 mg 1-01 capsule by ity of capsule 00:00: mouth in [place] 00 the Medical morning Branch and 1 capsule at noon and 1 capsule in the evening. rosuvastati 2021-09 Yes [id number] 10mg Take 1 [facility] n 10 mg 1-01 tablet by ity of tablet 00:00: mouth at [place] 00 bedtime. Medical Branch SUMAtriptan 2021-09 Yes [id number] 50mg Take 1 [facility] 50 mg 1-01 tablet by ity of tablet 00:00: mouth as [place] 00 needed for Medical Migraine. Branch diltiazem 2021-09 Yes [id number] 120mg Take 1 [facility] nivers 120 mg 24 1-01 capsule by ity of hr capsule 00:00: mouth in [place] as 00 the Medical morning Branch and 1 capsule in the evening. fluticasone 2021-09 Yes [id number] 2{puff} Inhale 2 [facility] propionate 1-01 Puffs ity of (FLOVENT 00:00: every 12 [place] HFA) 110 00 (twelve) Medical mcg/actuati hours. Branch on inhaler Rinse mouth after each use. metformin 2021-09 Yes [id number] 500mg Take 1 U nivers ER 500 mg 1-01 tablet by ity o f 24 hr 00:00: mouth [place] tablet 00 daily with Medical breakfast. Branch pantoprazol 2021-09 Yes [id number] 40mg Take 1 [facility] e 40 mg EC 1-01 tablet by ity of tablet 00:00: mouth in [place] 00 the Medical morning. Branch rosuvastati 2021-09 Yes [id number] 10mg Take 1 [facility] n 10 mg 1-01 tablet by ity of tablet 00:00: mouth at [place] 00 bedtime. Medical Branch SUMAtriptan 2021-09 Yes [id number] 50mg Take 1 [facility] 50 mg 1-01 tablet by ity of tablet 00:00: mouth as [place] 00 needed for Medical Migraine. Branch diltiazem 2021-09 Yes [id number] 120mg Take 1 [facility] nivers 120 mg 24 1-01 capsule by ity of hr capsule 00:00: mouth in [place] as 00 the Medical morning Branch and 1 capsule in the evening. fluticasone 2021-09 Yes [id number] 2{puff} Inhale 2 [facility] propionate 1-01 Puffs ity of (FLOVENT 00:00: every 12 [place] HFA) 110 00 (twelve) Medical mcg/actuati hours. Branch on inhaler Rinse mouth after each use. metformin 2021-09 Yes [id number] 500mg Take 1 U nivers ER 500 mg 1-01 tablet by ity o f 24 hr 00:00: mouth [place] tablet 00 daily with Medical breakfast. Branch pantoprazol 2021-09 Yes [id number] 40mg Take 1 [facility] e 40 mg EC 1-01 tablet by ity of tablet 00:00: mouth in [place] 00 the Medical morning. Branch rosuvastati 2021-09 Yes [id number] 10mg Take 1 [facility] n 10 mg 1-01 tablet by ity of tablet 00:00: mouth at [place] 00 bedtime. Medical Branch SUMAtriptan 2021-09 Yes [id number] 50mg Take 1 [facility] 50 mg 1-01 tablet by ity of tablet 00:00: mouth as [place] 00 needed for Medical Migraine. Branch diltiazem 2021-09 Yes [id number] 120mg Take 1 [facility] nivers 120 mg 24 1-01 capsule by ity of hr capsule 00:00: mouth in [place] as 00 the Medical morning Branch and 1 capsule in the evening. fluticasone 2021-09 Yes [id number] 2{puff} Inhale 2 [facility] propionate 1-01 Puffs ity of (FLOVENT 00:00: every 12 [place] HFA) 110 00 (twelve) Medical mcg/actuati hours. Branch on inhaler Rinse mouth after each use. metformin 2021-09 Yes [id number] 500mg Take 1 U nivers ER 500 mg 1-01 tablet by ity o f 24 hr 00:00: mouth [place] tablet 00 daily with Medical breakfast. Branch pantoprazol 2021-09 Yes [id number] 40mg Take 1 [facility] e 40 mg EC 1-01 tablet by ity of tablet 00:00: mouth in [place] 00 the Medical morning. Branch rosuvastati 2021-09 Yes [id number] 10mg Take 1 [facility] n 10 mg 1-01 tablet by ity of tablet 00:00: mouth at [place] 00 bedtime. Medical Branch SUMAtriptan 2021-09 Yes [id number] 50mg Take 1 [facility] 50 mg 1-01 tablet by ity of tablet 00:00: mouth as [place] 00 needed for Medical Migraine. Branch diltiazem 2021-09 Yes [id number] 120mg Take 1 [facility] nivers 120 mg 24 1-01 capsule by ity of hr capsule 00:00: mouth in [place] as 00 the Medical morning Branch and 1 capsule in the evening. fluticasone 2021-09 Yes [id number] 2{puff} Inhale 2 [facility] propionate 1-01 Puffs ity of (FLOVENT 00:00: every 12 [place] HFA) 110 00 (twelve) Medical mcg/actuati hours. Branch on inhaler Rinse mouth after each use. metformin 2021-09 Yes [id number] 500mg Take 1 U nivers ER 500 mg 1-01 tablet by ity o f 24 hr 00:00: mouth [place] tablet 00 daily with Medical breakfast. Branch pantoprazol 2021-09 Yes [id number] 40mg Take 1 [facility] e 40 mg EC 1-01 tablet by ity of tablet 00:00: mouth in [place] 00 the Medical morning. Branch rosuvastati 2021-09 Yes [id number] 10mg Take 1 [facility] n 10 mg 1-01 tablet by ity of tablet 00:00: mouth at [place] 00 bedtime. Medical Branch SUMAtriptan 2021-09 Yes [id number] 50mg Take 1 [facility] 50 mg 1-01 tablet by ity of tablet 00:00: mouth as [place] 00 needed for Medical Migraine. Branch diltiazem 2021-09 Yes [id number] 120mg Take 1 [facility] nivers 120 mg 24 1-01 capsule by ity of hr capsule 00:00: mouth in [place] as 00 the Medical morning Branch and 1 capsule in the evening. fluticasone 2021-09 Yes [id number] 2{puff} Inhale 2 [facility] propionate 1-01 Puffs ity of (FLOVENT 00:00: every 12 [place] HFA) 110 00 (twelve) Medical mcg/actuati hours. Branch on inhaler Rinse mouth after each use. metformin 2021-09 Yes [id number] 500mg Take 1 U nivers ER 500 mg 1-01 tablet by ity o f 24 hr 00:00: mouth [place] tablet 00 daily with Medical breakfast. Branch pantoprazol 2021-09 Yes [id number] 40mg Take 1 [facility] e 40 mg EC 1-01 tablet by ity of tablet 00:00: mouth in [place] 00 the Medical morning. Branch rosuvastati 2021-09 Yes [id number] 10mg Take 1 [facility] n 10 mg 1-01 tablet by ity of tablet 00:00: mouth at [place] 00 bedtime. Medical Branch SUMAtriptan 2021-09 Yes [id number] 50mg Take 1 [facility] 50 mg 1-01 tablet by ity of tablet 00:00: mouth as [place] 00 needed for Medical Migraine. Branch diltiazem 2021-09 Yes [id number] 120mg Take 1 [facility] nivers 120 mg 24 1-01 capsule by ity of hr capsule 00:00: mouth in [place] as 00 the Medical morning Branch and 1 capsule in the evening. fluticasone 2021-09 Yes [id number] 2{puff} Inhale 2 [facility] propionate 1-01 Puffs ity of (FLOVENT 00:00: every 12 [place] HFA) 110 00 (twelve) Medical mcg/actuati hours. Branch on inhaler Rinse mouth after each use. metformin 2021-09 Yes [id number] 500mg Take 1 U nivers ER 500 mg 1-01 tablet by ity o f 24 hr 00:00: mouth [place] tablet 00 daily with Medical breakfast. Branch pantoprazol 2021-09 Yes [id number] 40mg Take 1 [facility] e 40 mg EC 1-01 tablet by ity of tablet 00:00: mouth in [place] 00 the Medical morning. Branch rosuvastati 2021-09 Yes [id number] 10mg Take 1 [facility] n 10 mg 1-01 tablet by ity of tablet 00:00: mouth at [place] 00 bedtime. Medical Branch SUMAtriptan 2021-09 Yes [id number] 50mg Take 1 [facility] 50 mg 1-01 tablet by ity of tablet 00:00: mouth as [place] 00 needed for Medical Migraine. Branch diltiazem 2021-09 Yes [id number] 120mg Take 1 U nivers 120 mg 24 1-01 capsule by ity of hr capsule 00:00: mouth in [place] as 00 the Medical morning Branch and 1 capsule in the evening. fluticasone 2021-09 Yes [id number] 2{puff} Inhale 2 [facility] propionate 1-01 Puffs ity of (FLOVENT 00:00: every 12 [place] HFA) 110 00 (twelve) Medical mcg/actuati hours. Branch on inhaler Rinse mouth after each use. metformin 2021-09 Yes [id number] 500mg Take 1 U nivers ER 500 mg 1-01 tablet by ity o f 24 hr 00:00: mouth [place] tablet 00 daily with Medical breakfast. Branch pantoprazol 2021-09 Yes [id number] 40mg Take 1 [facility] e 40 mg EC 1-01 tablet by ity of tablet 00:00: mouth in [place] 00 the Medical morning. Branch rosuvastati 2021-09 Yes [id number] 10mg Take 1 [facility] n 10 mg 1-01 tablet by ity of tablet 00:00: mouth at [place] 00 bedtime. Medical Branch SUMAtriptan 2021-09 Yes [id number] 50mg Take 1 [facility] 50 mg 1-01 tablet by ity of tablet 00:00: mouth as [place] 00 needed for Medical Migraine. Branch diltiazem 2021-09 Yes [id number] 120mg Take 1 U nivers 120 mg 24 1-01 capsule by ity of hr capsule 00:00: mouth in [place] as 00 the Medical morning Branch and 1 capsule in the evening. fluticasone 2021-09 Yes [id number] 2{puff} Inhale 2 [facility] propionate 1-01 Puffs ity of (FLOVENT 00:00: every 12 [place] HFA) 110 00 (twelve) Medical mcg/actuati hours. Branch on inhaler Rinse mouth after each use. metformin 2021-09 Yes [id number] 500mg Take 1 U nivers ER 500 mg 1-01 tablet by ity o f 24 hr 00:00: mouth [place] tablet 00 daily with Medical breakfast. Branch pantoprazol 2021-09 Yes [id number] 40mg Take 1 [facility] e 40 mg EC 1-01 tablet by ity of tablet 00:00: mouth in [place] 00 the Medical morning. Branch rosuvastati 2021-09 Yes [id number] 10mg Take 1 [facility] n 10 mg 1-01 tablet by ity of tablet 00:00: mouth at [place] [address] bedtime. Medical Branch SUMAtriptan 2021-09 Yes [id number] 50mg Take 1 [facility] 50 mg 1-01 tablet by ity of tablet 00:00: mouth as [place] 00 needed for Medical Migraine. Branch diltiazem 2021-09 Yes [id number] 120mg Take 1 U nivers 120 mg 24 1-01 capsule by ity of hr capsule 00:00: mouth in [place] as 00 the Medical morning Branch and 1 capsule in the evening. fluticasone 2021-09 Yes [id number] 2{puff} Inhale 2 [facility] propionate 1-01 Puffs ity of (FLOVENT 00:00: every 12 [place] HFA) 110 00 (twelve) Medical mcg/actuati hours. Branch on inhaler Rinse mouth after each use. metformin 2021-09 Yes [id number] 500mg Take 1 U nivers ER 500 mg 1-01 tablet by ity o f 24 hr 00:00: mouth [place] tablet 00 daily with Medical breakfast. Branch pantoprazol 2021-09 Yes [id number] 40mg Take 1 [facility] e 40 mg EC 1-01 tablet by ity of tablet 00:00: mouth in [place] 00 the Medical morning. Branch rosuvastati 2021-09 Yes [id number] 10mg Take 1 [facility] n 10 mg 1-01 tablet by ity of tablet 00:00: mouth at [place] [address] bedtime. Medical Branch SUMAtriptan 2021-09 Yes [id number] 50mg Take 1 [facility] 50 mg 1-01 tablet by ity of tablet 00:00: mouth as [place] 00 needed for Medical Migraine. Branch diltiazem 2021-09 Yes [id number] 120mg Take 1 U nivers 120 mg 24 1-01 capsule by ity of hr capsule 00:00: mouth in [place] as 00 the Medical morning Branch and 1 capsule in the evening. fluticasone 2021-09 Yes [id number] 2{puff} Inhale 2 [facility] propionate 1-01 Puffs ity of (FLOVENT 00:00: every 12 [place] HFA) 110 00 (twelve) Medical mcg/actuati hours. Branch on inhaler Rinse mouth after each use. metformin 2021-09 Yes [id number] 500mg Take 1 U nivers ER 500 mg 1-01 tablet by ity o f 24 hr 00:00: mouth [place] tablet 00 daily with Medical breakfast. Branch pantoprazol 2021-09 Yes [id number] 40mg Take 1 [facility] e 40 mg EC 1-01 tablet by ity of tablet 00:00: mouth in [place] 00 the Medical morning. Branch rosuvastati 2021-09 Yes [id number] 10mg Take 1 [facility] n 10 mg 1-01 tablet by ity of tablet 00:00: mouth at [place] 00 bedtime. Medical Branch SUMAtriptan 2021-09 Yes [id number] 50mg Take 1 [facility] 50 mg 1-01 tablet by ity of tablet 00:00: mouth as [place] 00 needed for Medical Migraine. Branch diltiazem 2021-09 Yes [id number] 120mg Take 1 U nivers 120 mg 24 1-01 capsule by ity of hr capsule 00:00: mouth in [place] as 00 the Medical morning Branch and 1 capsule in the evening. fluticasone 2021-09 Yes [id number] 2{puff} Inhale 2 [facility] propionate 1-01 Puffs ity of (FLOVENT 00:00: every 12 [place] HFA) 110 00 (twelve) Medical mcg/actuati hours. Branch on inhaler Rinse mouth after each use. metformin 2021-09 Yes [id number] 500mg Take 1 U nivers ER 500 mg 1-01 tablet by ity o f 24 hr 00:00: mouth [place] tablet 00 daily with Medical breakfast. Branch pantoprazol 2021-09 Yes [id number] 40mg Take 1 [facility] e 40 mg EC 1-01 tablet by ity of tablet 00:00: mouth in [place] 00 the Medical morning. Branch rosuvastati 2021-09 Yes [id number] 10mg Take 1 [facility] n 10 mg 1-01 tablet by ity of tablet 00:00: mouth at [place] 00 bedtime. Medical Branch SUMAtriptan 2021-09 Yes [id number] 50mg Take 1 [facility] 50 mg 1-01 tablet by ity of tablet 00:00: mouth as [place] 00 needed for Medical Migraine. Branch diltiazem 2021-09 Yes [id number] 120mg Take 1 U nivers 120 mg 24 1-01 capsule by ity of hr capsule 00:00: mouth in [place] as 00 the Medical morning Branch and 1 capsule in the evening. fluticasone 2021-09 Yes [id number] 2{puff} Inhale 2 [facility] propionate 1-01 Puffs ity of (FLOVENT 00:00: every 12 [place] HFA) 110 00 (twelve) Medical mcg/actuati hours. Branch on inhaler Rinse mouth after each use. metformin 2021-09 Yes [id number] 500mg Take 1 U nivers ER 500 mg 1-01 tablet by ity o f 24 hr 00:00: mouth [place] tablet 00 daily with Medical breakfast. Branch pantoprazol 2021-09 Yes [id number] 40mg Take 1 [facility] e 40 mg EC 1-01 tablet by ity of tablet 00:00: mouth in [place] 00 the Medical morning. Branch rosuvastati 2021-09 Yes [id number] 10mg Take 1 [facility] n 10 mg 1-01 tablet by ity of tablet 00:00: mouth at [place] [address] bedtime. Medical Branch SUMAtriptan 2021-09 Yes [id number] 50mg Take 1 [facility] 50 mg 1-01 tablet by ity of tablet 00:00: mouth as [place] 00 needed for Medical Migraine. Branch diltiazem 2021-09 Yes [id number] 120mg Take 1 U nivers 120 mg 24 1-01 capsule by ity of hr capsule 00:00: mouth in [place] as 00 the Medical morning Branch and 1 capsule in the evening. fluticasone 2021-09 Yes [id number] 2{puff} Inhale 2 [facility] propionate 1-01 Puffs ity of (FLOVENT 00:00: every 12 [place] HFA) 110 00 (twelve) Medical mcg/actuati hours. Branch on inhaler Rinse mouth after each use. metformin 2021-09 Yes [id number] 500mg Take 1 U nivers ER 500 mg 1-01 tablet by ity o f 24 hr 00:00: mouth [place] tablet 00 daily with Medical breakfast. Branch pantoprazol 2021-09 Yes [id number] 40mg Take 1 [facility] e 40 mg EC 1-01 tablet by ity of tablet 00:00: mouth in [place] 00 the Medical morning. Branch rosuvastati 2021-09 Yes [id number] 10mg Take 1 [facility] n 10 mg 1-01 tablet by ity of tablet 00:00: mouth at [place] 00 bedtime. Medical Branch SUMAtriptan 2021-09 Yes [id number] 50mg Take 1 [facility] 50 mg 1-01 tablet by ity of tablet 00:00: mouth as [place] 00 needed for Medical Migraine. Branch diltiazem 2021-09 Yes [id number] 120mg Take 1 U nivers 120 mg 24 1-01 capsule by ity of hr capsule 00:00: mouth in [place] as 00 the Medical morning Branch and 1 capsule in the evening. fluticasone 2021-09 Yes [id number] 2{puff} Inhale 2 [facility] propionate 1-01 Puffs ity of (FLOVENT 00:00: every 12 [place] HF) 110 00 (twelve) Medical mcg/actuati hours. Branch on inhaler Rinse mouth after each use. rosuvastati 2021-09 Yes [id number] 10mg Take 1 [facility] n 10 mg 1-01 tablet by ity of tablet 00:00: mouth at [place] [address] bedtime. Medical Branch diltiazem 2021-09 Yes [id number] 120mg Take 1 [facility] nivers 120 mg 24 1-01 capsule by ity of hr capsule 00:00: mouth in [place] as 00 the Medical morning Branch and 1 capsule in the evening. fluticasone 2021-09 Yes [id number] 2{puff} Inhale 2 [facility] propionate 1-01 Puffs ity of (FLOVENT 00:00: every 12 [place] HFA) 110 00 (twelve) Medical mcg/actuati hours. Branch on inhaler Rinse mouth after each use. rosuvastati 2021-09 Yes [id number] 10mg Take 1 [facility] n 10 mg 1-01 tablet by ity of tablet 00:00: mouth at [place] 00 bedtime. Medical Branch diltiazem 2021-09 Yes [id number] 120mg Take 1 U nivers 120 mg 24 1-01 capsule by ity of hr capsule 00:00: mouth in [place] as 00 the Medical morning Branch and 1 capsule in the evening. fluticasone 2021-09 Yes [id number] 2{puff} Inhale 2 [facility] propionate 1-01 Puffs ity of (FLOVENT 00:00: every 12 [place] HFA) 110 00 (twelve) Medical mcg/actuati hours. Branch on inhaler Rinse mouth after each use. rosuvastati 2021-09 Yes [id number] 10mg Take 1 [facility] n 10 mg 1-01 tablet by ity of tablet 00:00: mouth at [place] 00 bedtime. Medical Branch diltiazem 2021-09 Yes [id number] 120mg Take 1 [facility] nivers 120 mg 24 1-01 capsule by ity of hr capsule 00:00: mouth in [place] as 00 the Medical morning Branch and 1 capsule in the evening. fluticasone 2021-09 Yes [id number] 2{puff} Inhale 2 [facility] propionate 1-01 Puffs ity of (FLOVENT 00:00: every 12 [facility] [place] [facility]) 110 00 (twelve) Medical mcg/actuati hours. Branch on inhaler Rinse mouth after each use. rosuvastati 2021-09 Yes [id number] 10mg Take 1 [facility] n 10 mg 1-01 tablet by ity of tablet 00:00: mouth at [place] 00 bedtime. Medical Branch diltiazem 2021-09 Yes [id number] 120mg Take 1 [facility] nivers 120 mg 24 1-01 capsule by ity of hr capsule 00:00: mouth in [place] as 00 the Medical morning Branch and 1 capsule in the evening. fluticasone 2021-09 Yes [id number] 2{puff} Inhale 2 [facility] propionate 1-01 Puffs ity of (FLOVENT 00:00: every 12 [place] HFA) 110 00 (twelve) Medical mcg/actuati hours. Branch on inhaler Rinse mouth after each use. rosuvastati 2021-09 Yes [id number] 10mg Take 1 [facility] n 10 mg 1-01 tablet by ity of tablet 00:00: mouth at [place] 00 bedtime. Medical Branch diltiazem 2021-09 Yes [id number] 120mg Take 1 [facility] nivers 120 mg 24 1-01 capsule by ity of hr capsule 00:00: mouth in [place] as 00 the Medical morning Branch and 1 capsule in the evening. fluticasone 2021-09 Yes [id number] 2{puff} Inhale 2 [facility] propionate 1-01 Puffs ity of (FLOVENT 00:00: every 12 [place] HFA) 110 00 (twelve) Medical mcg/actuati hours. Branch on inhaler Rinse mouth after each use. rosuvastati 2021-09 Yes [id number] 10mg Take 1 [facility] n 10 mg 1-01 tablet by ity of tablet 00:00: mouth at [place] 00 bedtime. Medical Branch diltiazem 2021-09 Yes [id number] 120mg Take 1 [facility] nivers 120 mg 24 1-01 capsule by ity of hr capsule 00:00: mouth in [place] as 00 the Medical morning Branch and 1 capsule in the evening. fluticasone 2021-09 Yes [id number] 2{puff} Inhale 2 [facility] propionate 1-01 Puffs ity of (FLOVENT 00:00: every 12 [place] HFA) 110 00 (twelve) Medical mcg/actuati hours. Branch on inhaler Rinse mouth after each use. rosuvastati 2021-09 Yes [id number] 10mg Take 1 [facility] n 10 mg 1-01 tablet by ity of tablet 00:00: mouth at [place] 00 bedtime. Medical Branch diltiazem 2021-09 Yes [id number] 120mg Take 1 [facility] nivers 120 mg 24 1-01 capsule by ity of hr capsule 00:00: mouth in [place] as 00 the Medical morning Branch and 1 capsule in the evening. fluticasone 2021-09 Yes [id number] 2{puff} Inhale 2 [facility] propionate 1-01 Puffs ity of (FLOVENT 00:00: every 12 [place] HFA) 110 00 (twelve) Medical mcg/actuati hours. Branch on inhaler Rinse mouth after each use. rosuvastati 2021-09 Yes [id number] 10mg Take 1 [facility] n 10 mg 1-01 tablet by ity of tablet 00:00: mouth at [place] 00 bedtime. Medical Branch diltiazem 2021-09 Yes [id number] 120mg Take 1 [facility] nivers 120 mg 24 1-01 capsule by ity of hr capsule 00:00: mouth in [place] as 00 the Medical morning Branch and 1 capsule in the evening. fluticasone 2021-09 Yes [id number] 2{puff} Inhale 2 [facility] propionate 1-01 Puffs ity of (FLOVENT 00:00: every 12 [place] HFA) 110 00 (twelve) Medical mcg/actuati hours. Branch on inhaler Rinse mouth after each use. rosuvastati 2021-09 Yes [id number] 10mg Take 1 [facility] n 10 mg 1-01 tablet by ity of tablet 00:00: mouth at [place] 00 bedtime. Medical Branch diltiazem 2021-09 Yes [id number] 120mg Take 1 [facility] nivers 120 mg 24 1-01 capsule by ity of hr capsule 00:00: mouth in [place] as 00 the Medical morning Branch and 1 capsule in the evening. fluticasone 2021-09 Yes [id number] 2{puff} Inhale 2 [facility] propionate 1-01 Puffs ity of (FLOVENT 00:00: every 12 [place] HFA) 110 00 (twelve) Medical mcg/actuati hours. Branch on inhaler Rinse mouth after each use. rosuvastati 2021-09 Yes [id number] 10mg Take 1 [facility] n 10 mg 1-01 tablet by ity of tablet 00:00: mouth at [place] 00 bedtime. Medical Branch diltiazem 2021-09 Yes [id number] 120mg Take 1 [facility] nivers 120 mg 24 1-01 capsule by ity of hr capsule 00:00: mouth in [place] as 00 the Medical morning Branch and 1 capsule in the evening. fluticasone 2021-09 Yes [id number] 2{puff} Inhale 2 [facility] propionate 1-01 Puffs ity of (FLOVENT 00:00: every 12 [place] HFA) 110 00 (twelve) Medical mcg/actuati hours. Branch on inhaler Rinse mouth after each use. rosuvastati 2021-09 Yes [id number] 10mg Take 1 [facility] n 10 mg 1-01 tablet by ity of tablet 00:00: mouth at [place] 00 bedtime. Medical Branch diltiazem 2021-09 Yes [id number] 120mg Take 1 [facility] nivers 120 mg 24 1-01 capsule by ity of hr capsule 00:00: mouth in [place] as 00 the Medical morning Branch and 1 capsule in the evening. fluticasone 2021-09 Yes [id number] 2{puff} Inhale 2 [facility] propionate 1-01 Puffs ity of (FLOVENT 00:00: every 12 [place] HFA) 110 00 (twelve) Medical mcg/actuati hours. Branch on inhaler Rinse mouth after each use. rosuvastati 2021-09 Yes [id number] 10mg Take 1 [facility] n 10 mg 1-01 tablet by ity of tablet 00:00: mouth at [place] 00 bedtime. Medical Branch diltiazem 2021-09 Yes [id number] 120mg Take 1 [facility] nivers 120 mg 24 1-01 capsule by ity of hr capsule 00:00: mouth in [place] as 00 the Medical morning Branch and 1 capsule in the evening. fluticasone 2021-09 Yes [id number] 2{puff} Inhale 2 [facility] propionate 1-01 Puffs ity of (FLOVENT 00:00: every 12 [place] HFA) 110 00 (twelve) Medical mcg/actuati hours. Branch on inhaler Rinse mouth after each use. rosuvastati 2021-09 Yes [id number] 10mg Take 1 [facility] n 10 mg 1-01 tablet by ity of tablet 00:00: mouth at [place] 00 bedtime. Medical Branch diltiazem 2021-09 Yes [id number] 120mg Take 1 [facility] nivers 120 mg 24 1-01 capsule by ity of hr capsule 00:00: mouth in [place] as 00 the Medical morning Branch and 1 capsule in the evening. fluticasone 2021-09 Yes [id number] 2{puff} Inhale 2 [facility] propionate 1-01 Puffs [facility] of (FLOVENT 00:00: every 12 [place] [facility]) 110 00 (twelve) Medical mcg/actuati hours. Branch on inhaler Rinse mouth after each use. rosuvastati 2021-09 Yes [id number] 10mg Take 1 [facility] n 10 mg 1-01 tablet by [facility] of tablet 00:00: mouth at [place] 00 bedtime. [facility] diltiazem 2021-09 Yes [id number] 120mg Take 1 [facility] 120 mg 24 1-01 capsule by [facility] of hr capsule 00:00: mouth in [place] 00 the Medical morning Branch and 1 capsule in the evening. fluticasone 2021-09 Yes [id number] 2{puff} Inhale 2 [facility] propionate 1-01 Puffs ity of (FLOVENT 00:00: every 12 [place] [facility]) 110 00 (twelve) Medical mcg/actuati hours. Branch on inhaler Rinse mouth after each use. rosuvastati 2021-09 Yes [id number] 10mg Take 1 [facility] n 10 mg 1-01 tablet by [facility] of tablet 00:00: mouth at [place] 00 bedtime. [facility] diltiazem 2021-09 Yes [id number] 120mg Take 1 [facility] 120 mg 24 1-01 capsule by [facility] of hr capsule 00:00: mouth in [place] 00 the Medical morning Branch and 1 capsule in the evening. fluticasone 2021-09 Yes [id number] 2{puff} Inhale 2 [facility] propionate 1-01 Puffs ity of (FLOVENT 00:00: every 12 [place] [facility]) 110 00 (twelve) Medical mcg/actuati hours. Branch on inhaler Rinse mouth after each use. rosuvastati 2021-09 Yes [id number] 10mg Take 1 [facility] n 10 mg 1-01 tablet by [facility] of tablet 00:00: mouth at [place] 00 bedtime. [facility] diltiazem 2021-09 Yes [id number] 120mg Take 1 [facility] n[facility] 120 mg 24 1-01 capsule by [facility] of hr capsule 00:00: mouth in [place] 00 the Medical morning Branch and 1 capsule in the evening. fluticasone 2021-09 Yes [id number] 2{puff} Inhale 2 [facility] propionate 1-01 Puffs ity of (FLOVENT 00:00: every 12 [place] [facility]) 110 00 (twelve) Medical mcg/actuati hours. Branch on inhaler Rinse mouth after each use. rosuvastati 2021-09 Yes [id number] 10mg Take 1 [facility] n 10 mg 1-01 tablet by [facility] of tablet 00:00: mouth at [place] 00 bedtime. [facility] diltiazem 2021-09 Yes [id number] 120mg Take 1 [facility] 120 mg 24 1-01 capsule by [facility] of hr capsule 00:00: mouth in [place] 00 the Medical morning Branch and 1 capsule in the evening. fluticasone 2021-09 Yes [id number] 2{puff} Inhale 2 [facility] propionate 1-01 Puffs ity of (FLOVENT 00:00: every 12 [place] [facility]) 110 00 (twelve) Medical mcg/actuati hours. Branch on inhaler Rinse mouth after each use. rosuvastati 2021-09 Yes [id number] 10mg Take 1 [facility] n 10 mg 1-01 tablet by [facility] of tablet 00:00: mouth at [place] 00 bedtime. [facility] Branch diltiazem 2021-09 Yes [id number] 120mg Take 1 [facility] 120 mg 24 1-01 capsule by [facility] of hr capsule 00:00: mouth in [place] 00 the Medical morning Branch and 1 capsule in the evening. fluticasone 2021-09 Yes [id number] 2{puff} Inhale 2 [facility] propionate 1-01 Puffs ity of (FLOVENT 00:00: every 12 [place] [facility]) 110 00 (twelve) Medical mcg/actuati hours. Branch on inhaler Rinse mouth after each use. rosuvastati 2021-09 Yes [id number] 10mg Take 1 [facility] n 10 mg 1-01 tablet by it[facility] of tablet 00:00: mouth at [place] 00 bedtime. [facility] Branch diltiazem 2021-09 Yes [id number] 120mg Take 1 [facility] n[facility] 120 mg 24 1-01 capsule by [facility] of hr capsule 00:00: mouth in [place] 00 the Medical morning Branch and 1 capsule in the evening. fluticasone 2021-09 Yes [id number] 2{puff} Inhale 2 [facility] propionate 1-01 Puffs ity of ([facility]OVENT 00:00: every 12 [place] [facility]) 110 00 (twelve) Medical mcg/actuati hours. Branch on inhaler Rinse mouth after each use. rosuvastati 2021-09 Yes [id number] 10mg Take 1 [facility] n 10 mg 1-01 tablet by it[facility] of tablet 00:00: mouth at [place] 00 bedtime. [facility] Branch diltiazem 2021-09 Yes [id number] 120mg Take 1 [facility] 120 mg 24 1-01 capsule by [facility] of hr capsule 00:00: mouth in [place] 00 the Medical morning Branch and 1 capsule in the evening. fluticasone 2021-09 Yes [id number] 2{puff} Inhale 2 [facility] propionate 1-01 Puffs ity of ([facility]OVENT 00:00: every 12 [place] [facility]) 110 00 (twelve) Medical mcg/actuati hours. Branch on inhaler Rinse mouth after each use. rosuvastati 2021-09 Yes [id number] 10mg Take 1 [facility] n 10 mg 1-01 tablet by ity of tablet 00:00: mouth at [place] 00 bedtime. [facility] Branch diltiazem 2021-09 Yes [id number] 120mg Take 1 [facility] n[facility] 120 mg 24 1-01 capsule by [facility] of hr capsule 00:00: mouth in [place] 00 the Medical morning Branch and 1 capsule in the evening. fluticasone 2021-09 Yes [id number] 2{puff} Inhale 2 [facility] propionate 1-01 Puffs ity of ([facility]OV[facility] 00:00: every 12 [place] [facility]) 110 00 (twelve) Medical mcg/actuati hours. Branch on inhaler Rinse mouth after each use. rosuvastati 2021-09 Yes [id number] 10mg Take 1 [facility] n 10 mg 1-01 tablet by ity of tablet 00:00: mouth at [place] 00 bedtime. [facility] Branch diltiazem 2021-09 Yes [id number] 120mg Take 1 [facility] nivers 120 mg 24 1-01 capsule by it[facility] of hr capsule 00:00: mouth in [place] 00 the Medical morning Branch and 1 capsule in the evening. fluticasone 2021-09 Yes [id number] 2{puff} Inhale 2 [facility] propionate 1-01 Puffs ity of ([facility]OVENT 00:00: every 12 [place] [facility]) 110 00 (twelve) Medical mcg/actuati hours. Branch on inhaler Rinse mouth after each use. rosuvastati 2021-09 Yes [id number] 10mg Take 1 [facility] n 10 mg 1-01 tablet by ity of tablet 00:00: mouth at [place] 00 bedtime. [facility] Branch diltiazem 2021-09 Yes [id number] 120mg Take 1 [facility] n[facility] 120 mg 24 1-01 capsule by [facility] of hr capsule 00:00: mouth in [place] 00 the Medical morning Branch and 1 capsule in the evening. fluticasone 2021-09 Yes [id number] 2{puff} Inhale 2 [facility] propionate 1-01 Puffs ity of ([place] 00:00: every 12 [place] [facility]) 110 00 (twelve) Medical mcg/actuati hours. Branch on inhaler Rinse mouth after each use. rosuvastati 2021-09 Yes [id number] 10mg Take 1 [facility] n 10 mg 1-01 tablet by ity of tablet 00:00: mouth at [place] 00 bedtime. [facility] Branch diltiazem 2021-09 Yes [id number] 120mg Take 1 [facility] nivers 120 mg 24 1-01 capsule by it[facility] of hr capsule 00:00: mouth in [place] 00 the Medical morning Branch and 1 capsule in the evening. fluticasone 2021-09 Yes [id number] 2{puff} Inhale 2 [facility] propionate 1-01 Puffs ity of ([facility] 00:00: every 12 [place] [facility]) 110 00 (twelve) Medical mcg/actuati hours. Branch on inhaler Rinse mouth after each use. rosuvastati 2021-09 Yes [id number] 10mg Take 1 [facility] n 10 mg 1-01 tablet by ity of tablet 00:00: mouth at [place] 00 bedtime. [facility] Branch diltiazem 2021-09 Yes [id number] 120mg Take 1 [facility] nivers 120 mg 24 1-01 capsule by it[facility] of hr capsule 00:00: mouth in [place] 00 the Medical morning Branch and 1 capsule in the evening. fluticasone 2021-09 Yes [id number] 2{puff} Inhale 2 [facility] propionate 1-01 Puffs ity of ([facility] 00:00: every 12 [place] [facility]) 110 00 (twelve) Medical mcg/actuati hours. Branch on inhaler Rinse mouth after each use. rosuvastati 2021-09 Yes [id number] 10mg Take 1 [facility] n 10 mg 1-01 tablet by ity of tablet 00:00: mouth at [place] 00 bedtime. [facility] Branch diltiazem 2021-09 Yes [id number] 120mg Take 1 [facility] nivers 120 mg 24 1-01 capsule by it[facility] of hr capsule 00:00: mouth in [place] 00 the Medical morning Branch and 1 capsule in the evening. fluticasone 2021-09 Yes [id number] 2{puff} Inhale 2 [facility] propionate 1-01 Puffs ity of ([facility] 00:00: every 12 [place] [facility]) 110 00 (twelve) Medical mcg/actuati hours. Branch on inhaler Rinse mouth after each use. rosuvastati 2021-09 Yes [id number] 10mg Take 1 [facility] n 10 mg 1-01 tablet by ity of tablet 00:00: mouth at [place] 00 bedtime. [facility] Branch diltiazem 2021-09 Yes [id number] 120mg Take 1 [facility] nivers 120 mg 24 1-01 capsule by it[facility] of hr capsule 00:00: mouth in [place] 00 the Medical morning Branch and 1 capsule in the evening. fluticasone 2021-09 Yes [id number] 2{puff} Inhale 2 [facility] propionate 1-01 Puffs ity of ([facility] 00:00: every 12 [place] [facility]) 110 00 (twelve) Medical mcg/actuati hours. Branch on inhaler Rinse mouth after each use. rosuvastati 2021-09 Yes [id number] 10mg Take 1 [facility] n 10 mg 1-01 tablet by ity of tablet 00:00: mouth at [place] 00 bedtime. [facility] Branch diltiazem 2021-09 Yes [id number] 120mg Take 1 [facility] n[facility] 120 mg 24 1-01 capsule by it[facility] of hr capsule 00:00: mouth in [place] 00 the Medical morning Branch and 1 capsule in the evening. fluticasone 2021-09 Yes [id number] 2{puff} Inhale 2 [facility] propionate 1-01 Puffs ity of ([facility]OV[facility] 00:00: every 12 [facility] [place] [facility]) 110 00 (twelve) Medical mcg/actuati hours. Branch on inhaler Rinse mouth after each use. rosuvastati 2021-09 Yes [id number] 10mg Take 1 [facility] n 10 mg 1-01 tablet by ity of tablet 00:00: mouth at [place] 00 bedtime. Medical Branch diltiazem 2021-09 Yes [id number] 120mg Take 1 [facility] nivers 120 mg 24 1-01 capsule by ity of hr capsule 00:00: mouth in [place] 00 the Medical morning Branch and 1 capsule in the evening. fluticasone 2021-09 Yes [id number] 2{puff} Inhale 2 [facility] propionate 1-01 Puffs ity of ([facility] 00:00: every 12 [place] [facility]) 110 00 (twelve) Medical mcg/actuati hours. Branch on inhaler Rinse mouth after each use. rosuvastati 2021-09 Yes [id number] 10mg Take 1 [facility] n 10 mg 1-01 tablet by ity of tablet 00:00: mouth at [place] 00 bedtime. Medical Branch diltiazem 2021-09 Yes [id number] 120mg Take 1 [facility] nivers 120 mg 24 1-01 capsule by ity of hr capsule 00:00: mouth in [place] 00 the Medical morning Branch and 1 capsule in the evening. fluticasone 2021-09 Yes [id number] 2{puff} Inhale 2 [facility] propionate 1-01 Puffs ity of ([facility]OVENT 00:00: every 12 [place] [facility]) 110 00 (twelve) Medical mcg/actuati hours. Branch on inhaler Rinse mouth after each use. rosuvastati 2021-09 Yes [id number] 10mg Take 1 [facility] n 10 mg 1-01 tablet by ity of tablet 00:00: mouth at [place] 00 bedtime. [facility] Branch diltiazem 2021-09 Yes [id number] 120mg Take 1 [facility] nivers 120 mg 24 1-01 capsule by ity of hr capsule 00:00: mouth in [place] 00 the Medical morning Branch and 1 capsule in the evening. fluticasone 2021-09 Yes [id number] 2{puff} Inhale 2 [facility] propionate 1-01 Puffs ity of ([facility]OV[facility] 00:00: every 12 [place] [facility]) 110 00 (twelve) Medical mcg/actuati hours. Branch on inhaler Rinse mouth after each use. rosuvastati 2021-09 Yes [id number] 10mg Take 1 [facility] n 10 mg 1-01 tablet by ity of tablet 00:00: mouth at [place] 00 bedtime. Medical Branch diltiazem 2021-09 Yes [id number] 120mg Take 1 [facility] nivers 120 mg 24 1-01 capsule by ity of hr capsule 00:00: mouth in [place] 00 the Medical morning Branch and 1 capsule in the evening. fluticasone 2021-09 Yes [id number] 2{puff} Inhale 2 [facility] propionate 1-01 Puffs ity of ([facility] 00:00: every 12 [place] [facility]) 110 00 (twelve) Medical mcg/actuati hours. Branch on inhaler Rinse mouth after each use. rosuvastati 2021-09 Yes [id number] 10mg Take 1 [facility] n 10 mg 1-01 tablet by ity of tablet 00:00: mouth at [place] 00 bedtime. [facility] Branch diltiazem 2021-09 Yes [id number] 120mg Take 1 [facility] nivers 120 mg 24 1-01 capsule by ity of hr capsule 00:00: mouth in [place] 00 the Medical morning Branch and 1 capsule in the evening. fluticasone 2021-09 Yes [id number] 2{puff} Inhale 2 [facility] propionate 1-01 Puffs ity of ([place]OVENT 00:00: every 12 [place] [facility]) 110 00 (twelve) Medical mcg/actuati hours. Branch on inhaler Rinse mouth after each use. rosuvastati 2021-09 Yes [id number] 10mg Take 1 [facility] n 10 mg 1-01 tablet by ity of tablet 00:00: mouth at [place] 00 bedtime. Medical Branch diltiazem 2021-09 Yes [id number] 120mg Take 1 [facility] nivers 120 mg 24 1-01 capsule by ity of hr capsule 00:00: mouth in [place] 00 the Medical morning Branch and 1 capsule in the evening. fluticasone 2021-09 Yes [id number] 2{puff} Inhale 2 [facility] propionate 1-01 Puffs ity of ([place] 00:00: every 12 [place] [facility]) 110 00 (twelve) Medical mcg/actuati hours. Branch on inhaler Rinse mouth after each use. rosuvastati 2021-09 Yes [id number] 10mg Take 1 [facility] n 10 mg 1-01 tablet by ity of tablet 00:00: mouth at [place] 00 bedtime. Medical Branch diltiazem 2021-09 Yes [id number] 120mg Take 1 [facility] nivers 120 mg 24 1-01 capsule by ity of hr capsule 00:00: mouth in [place] 00 the Medical morning Branch and 1 capsule in the evening. fluticasone 2021-09 Yes [id number] 2{puff} Inhale 2 [facility] propionate 1-01 Puffs ity of ([place]OV[facility] 00:00: every 12 [place] [facility]) 110 00 (twelve) Medical mcg/actuati hours. Branch on inhaler Rinse mouth after each use. rosuvastati 2021-09 Yes [id number] 10mg Take 1 [facility] n 10 mg 1-01 tablet by ity of tablet 00:00: mouth at [place] 00 bedtime. Medical Branch diltiazem 2021-09 Yes [id number] 120mg Take 1 [facility] nivers 120 mg 24 1-01 capsule by ity of hr capsule 00:00: mouth in [place] 00 the Medical morning Branch and 1 capsule in the evening. fluticasone 2021-09 Yes [id number] 2{puff} Inhale 2 [facility] propionate 1-01 Puffs ity of ([place]OVENT 00:00: every 12 [place] [facility]) 110 00 (twelve) Medical mcg/actuati hours. Branch on inhaler Rinse mouth after each use. rosuvastati 2021-09 Yes [id number] 10mg Take 1 [facility] n 10 mg 1-01 tablet by ity of tablet 00:00: mouth at [place] 00 bedtime. Medical Branch diltiazem 2021-09 Yes [id number] 120mg Take 1 [facility] nivers 120 mg 24 1-01 capsule by ity of hr capsule 00:00: mouth in [place] 00 the Medical morning Branch and 1 capsule in the evening. fluticasone 2021-09 Yes [id number] 2{puff} Inhale 2 [facility] propionate 1-01 Puffs ity of ([place] 00:00: every 12 [place] [facility]) 110 00 (twelve) Medical mcg/actuati hours. Branch on inhaler Rinse mouth after each use. rosuvastati 2021-09 Yes [id number] 10mg Take 1 [facility] n 10 mg 1-01 tablet by ity of tablet 00:00: mouth at [place] 00 bedtime. Medical Branch diltiazem 2021-09 Yes [id number] 120mg Take 1 [facility] nivers 120 mg 24 1-01 capsule by ity of hr capsule 00:00: mouth in [place] 00 the Medical morning Branch and 1 capsule in the evening. fluticasone 2021-09 Yes [id number] 2{puff} Inhale 2 [facility] propionate 1-01 Puffs ity of (FLOVENT 00:00: every 12 [place] [facility]) 110 00 (twelve) Medical mcg/actuati hours. Branch on inhaler Rinse mouth after each use. rosuvastati 2021-09 Yes [id number] 10mg Take 1 [facility] n 10 mg 1-01 tablet by ity of tablet 00:00: mouth at [place] 00 bedtime. Medical Branch diltiazem 2021-09 Yes [id number] 120mg Take 1 [facility] nivers 120 mg 24 1-01 capsule by ity of hr capsule 00:00: mouth in [place] 00 the Medical morning Branch and 1 capsule in the evening. fluticasone 2021-09 Yes [id number] 2{puff} Inhale 2 [facility] propionate 1-01 Puffs ity of ([place]OV[facility] 00:00: every 12 [place] [facility]) 110 00 (twelve) Medical mcg/actuati hours. Branch on inhaler Rinse mouth after each use. rosuvastati 2021-09 Yes [id number] 10mg Take 1 [facility] n 10 mg 1-01 tablet by ity of tablet 00:00: mouth at [place] 00 bedtime. Medical Branch diltiazem 2021-09 Yes [id number] 120mg Take 1 [facility] nivers 120 mg 24 1-01 capsule by ity of hr capsule 00:00: mouth in [place] 00 the Medical morning Branch and 1 capsule in the evening. fluticasone 2021-09 Yes [id number] 2{puff} Inhale 2 [facility] propionate 1-01 Puffs ity of ([place]OV[facility] 00:00: every 12 [place] [facility]) 110 00 (twelve) Medical mcg/actuati hours. Branch on inhaler Rinse mouth after each use. rosuvastati 2021-09 Yes [id number] 10mg Take 1 [facility] n 10 mg 1-01 tablet by ity of tablet 00:00: mouth at [place] 00 bedtime. Medical Branch diltiazem 2021-09 Yes [id number] 120mg Take 1 [facility] nivers 120 mg 24 1-01 capsule by ity of hr capsule 00:00: mouth in [place] 00 the Medical morning Branch and 1 capsule in the evening. fluticasone 2021-09 Yes [id number] 2{puff} Inhale 2 [facility] propionate 1-01 Puffs ity of ([place]OV[facility] 00:00: every 12 [place] [facility]) 110 00 (twelve) Medical mcg/actuati hours. Branch on inhaler Rinse mouth after each use. rosuvastati 2021-09 Yes [id number] 10mg Take 1 [facility] n 10 mg 1-01 tablet by ity of tablet 00:00: mouth at [place] 00 bedtime. [facility] Branch diltiazem 2021-09 Yes [id number] 120mg Take 1 [facility] nivers 120 mg 24 1-01 capsule by ity of hr capsule 00:00: mouth in [place] 00 the Medical morning Branch and 1 capsule in the evening. fluticasone 2021-09 Yes [id number] 2{puff} Inhale 2 [facility] propionate 1-01 Puffs ity of (FLOV[facility] 00:00: every 12 [place] [facility]) 110 00 (twelve) Medical mcg/actuati hours. Branch on inhaler Rinse mouth after each use. rosuvastati 2021-09 Yes [id number] 10mg Take 1 [facility] n 10 mg 1-01 tablet by ity of tablet 00:00: mouth at [place] 00 bedtime. [facility] Branch diltiazem 2021-09 Yes [id number] 120mg Take 1 [facility] nivers 120 mg 24 1-01 capsule by ity of hr capsule 00:00: mouth in [place] 00 the Medical morning Branch and 1 capsule in the evening. fluticasone 2021-09 Yes [id number] 2{puff} Inhale 2 [facility] propionate 1-01 Puffs ity of (FLOV[facility] 00:00: every 12 [place] [facility]) 110 00 (twelve) Medical mcg/actuati hours. Branch on inhaler Rinse mouth after each use. rosuvastati 2021-09 Yes [id number] 10mg Take 1 [facility] n 10 mg 1-01 tablet by ity of tablet 00:00: mouth at [place] 00 bedtime. Medical Branch diltiazem 2021-09 Yes [id number] 120mg Take 1 [facility] nivers 120 mg 24 1-01 capsule by ity of hr capsule 00:00: mouth in [place] 00 the Medical morning Branch and 1 capsule in the evening. fluticasone 2021-09 Yes [id number] 2{puff} Inhale 2 [facility] propionate 1-01 Puffs ity of (FLOVENT 00:00: every 12 [place] [facility]) 110 00 (twelve) Medical mcg/actuati hours. Branch on inhaler Rinse mouth after each use. rosuvastati 2021-09 Yes [id number] 10mg Take 1 [facility] n 10 mg 1-01 tablet by ity of tablet 00:00: mouth at [place] 00 bedtime. Medical Branch diltiazem 2021-09 Yes [id number] 120mg Take 1 [facility] nivers 120 mg 24 1-01 capsule by ity of hr capsule 00:00: mouth in [place] 00 the Medical morning Branch and 1 capsule in the evening. fluticasone 2021-09 Yes [id number] 2{puff} Inhale 2 [facility] propionate 1-01 Puffs ity of (FLOV[facility] 00:00: every 12 [place] [facility]) 110 00 (twelve) Medical mcg/actuati hours. Branch on inhaler Rinse mouth after each use. rosuvastati 2021-09 Yes [id number] 10mg Take 1 [facility] n 10 mg 1-01 tablet by ity of tablet 00:00: mouth at [place] 00 bedtime. Medical Branch diltiazem 2021-09 Yes [id number] 120mg Take 1 [facility] nivers 120 mg 24 1-01 capsule by ity of hr capsule 00:00: mouth in [place] 00 the Medical morning Branch and 1 capsule in the evening. fluticasone 2021-09 Yes [id number] 2{puff} Inhale 2 [facility] propionate 1-01 Puffs ity of ([place]OV[facility] 00:00: every 12 [place] [facility]) 110 00 (twelve) Medical mcg/actuati hours. Branch on inhaler Rinse mouth after each use. rosuvastati 2021-09 Yes [id number] 10mg Take 1 [facility] n 10 mg 1-01 tablet by ity of tablet 00:00: mouth at [place] 00 bedtime. [facility] Branch diltiazem 2021-09 Yes [id number] 120mg Take 1 [facility] nivers 120 mg 24 1-01 capsule by ity of hr capsule 00:00: mouth in [place] 00 the Medical morning Branch and 1 capsule in the evening. fluticasone 2021-09 Yes [id number] 2{puff} Inhale 2 [facility] propionate 1-01 Puffs ity of (FLOV[facility] 00:00: every 12 [place] [facility]) 110 00 (twelve) Medical mcg/actuati hours. Branch on inhaler Rinse mouth after each use. rosuvastati 2021-09 Yes [id number] 10mg Take 1 [facility] n 10 mg 1-01 tablet by ity of tablet 00:00: mouth at [place] 00 bedtime. [facility] Branch diltiazem 2021-09 Yes [id number] 120mg Take 1 [facility] nivers 120 mg 24 1-01 capsule by ity of hr capsule 00:00: mouth in [place] 00 the Medical morning Branch and 1 capsule in the evening. fluticasone 2021-09 Yes [id number] 2{puff} Inhale 2 [facility] propionate 1-01 Puffs ity of ([place]OVENT 00:00: every 12 [place] [facility]) 110 00 (twelve) Medical mcg/actuati hours. Branch on inhaler Rinse mouth after each use. rosuvastati 2021-09 Yes [id number] 10mg Take 1 [facility] n 10 mg 1-01 tablet by ity of tablet 00:00: mouth at [place] 00 bedtime. Medical Branch diltiazem 2021-09 Yes [id number] 120mg Take 1 [facility] nivers 120 mg 24 1-01 capsule by ity of hr capsule 00:00: mouth in [place] 00 the Medical morning Branch and 1 capsule in the evening. fluticasone 2021-09 Yes [id number] 2{puff} Inhale 2 [facility] propionate 1-01 Puffs ity of ([place]OVENT 00:00: every 12 [place] [facility]) 110 00 (twelve) Medical mcg/actuati hours. Branch on inhaler Rinse mouth after each use. rosuvastati 2021-09 Yes [id number] 10mg Take 1 [facility] n 10 mg 1-01 tablet by ity of tablet 00:00: mouth at [place] 00 bedtime. Medical Branch diltiazem 2021-09 Yes [id number] 120mg Take 1 [facility] nivers 120 mg 24 1-01 capsule by ity of hr capsule 00:00: mouth in [place] 00 the Medical morning Branch and 1 capsule in the evening. fluticasone 2021-09 Yes [id number] 2{puff} Inhale 2 [facility] propionate 1-01 Puffs ity of ([facility]OVENT 00:00: every 12 [place] [facility]) 110 00 (twelve) Medical mcg/actuati hours. Branch on inhaler Rinse mouth after each use. rosuvastati 2021-09 Yes [id number] 10mg Take 1 [facility] n 10 mg 1-01 tablet by ity of tablet 00:00: mouth at [place] 00 bedtime. Medical Branch diltiazem 2021-09 Yes [id number] 120mg Take 1 [facility] nivers 120 mg 24 1-01 capsule by ity of hr capsule 00:00: mouth in [place] 00 the Medical morning Branch and 1 capsule in the evening. fluticasone 2021-09 Yes [id number] 2{puff} Inhale 2 [facility] propionate 1-01 Puffs ity of (FLOVENT 00:00: every 12 [place] [facility]) 110 00 (twelve) Medical mcg/actuati hours. Branch on inhaler Rinse mouth after each use. rosuvastati 2021-09 Yes [id number] 10mg Take 1 [facility] n 10 mg 1-01 tablet by ity of tablet 00:00: mouth at [place] 00 bedtime. Medical Branch diltiazem 2021-09 Yes [id number] 120mg Take 1 [facility] nivers 120 mg 24 1-01 capsule by ity of hr capsule 00:00: mouth in [place] 00 the Medical morning Branch and 1 capsule in the evening. fluticasone 2021-09 Yes [id number] 2{puff} Inhale 2 [facility] propionate 1-01 Puffs ity of (FLOVENT 00:00: every 12 [place] [facility]) 110 00 (twelve) Medical mcg/actuati hours. Branch on inhaler Rinse mouth after each use. rosuvastati 2021-09 Yes [id number] 10mg Take 1 [facility] n 10 mg 1-01 tablet by ity of tablet 00:00: mouth at [place] 00 bedtime. [facility] Branch diltiazem 2021-09 Yes [id number] 120mg Take 1 [facility] nivers 120 mg 24 1-01 capsule by ity of hr capsule 00:00: mouth in [place] 00 the Medical morning Branch and 1 capsule in the evening. fluticasone 2021-09 Yes [id number] 2{puff} Inhale 2 [facility] propionate 1-01 Puffs ity of (FLOVENT 00:00: every 12 [facility] [place] [facility]) 110 00 (twelve) Medical mcg/actuati hours. Branch on inhaler Rinse mouth after each use. rosuvastati 2021-09 Yes [id number] 10mg Take 1 [facility] n 10 mg 1-01 tablet by ity of tablet 00:00: mouth at [place] 00 bedtime. Medical Branch diltiazem 2021-09 Yes [id number] 120mg Take 1 [facility] nivers 120 mg 24 1-01 capsule by ity of hr capsule 00:00: mouth in [place] 00 the Medical morning Branch and 1 capsule in the evening. fluticasone 2021-09 Yes [id number] 2{puff} Inhale 2 [facility] propionate 1-01 Puffs ity of (FLOVENT 00:00: every 12 [place] [facility]) 110 00 (twelve) Medical mcg/actuati hours. Branch on inhaler Rinse mouth after each use. rosuvastati 2021-09 Yes [id number] 10mg Take 1 [facility] n 10 mg 1-01 tablet by ity of tablet 00:00: mouth at [place] 00 bedtime. Medical Branch diltiazem 2021-09 Yes [id number] 120mg Take 1 [facility] nivers 120 mg 24 1-01 capsule by ity of hr capsule 00:00: mouth in [place] 00 the Medical morning Branch and 1 capsule in the evening. fluticasone 2021-09 Yes [id number] 2{puff} Inhale 2 [facility] propionate 1-01 Puffs ity of (FLOVENT 00:00: every 12 [place] [facility]) 110 00 (twelve) Medical mcg/actuati hours. Branch on inhaler Rinse mouth after each use. rosuvastati 2021-09 Yes [id number] 10mg Take 1 [facility] n 10 mg 1-01 tablet by ity of tablet 00:00: mouth at [place] 00 bedtime. Medical Branch diltiazem 2021-09 Yes [id number] 120mg Take 1 [facility] nivers 120 mg 24 1-01 capsule by ity of hr capsule 00:00: mouth in [place] 00 the Medical morning Branch and 1 capsule in the evening. fluticasone 2021-09 Yes [id number] 2{puff} Inhale 2 [facility] propionate 1-01 Puffs ity of (FLOVENT 00:00: every 12 [place] [facility]) 110 00 (twelve) Medical mcg/actuati hours. Branch on inhaler Rinse mouth after each use. rosuvastati 2021-09 Yes [id number] 10mg Take 1 [facility] n 10 mg 1-01 tablet by ity of tablet 00:00: mouth at [place] 00 bedtime. Medical Branch diltiazem 2021-09 Yes [id number] 120mg Take 1 [facility] nivers 120 mg 24 1-01 capsule by ity of hr capsule 00:00: mouth in [place] 00 the Medical morning Branch and 1 capsule in the evening. fluticasone 2021-09 Yes [id number] 2{puff} Inhale 2 [facility] propionate 1-01 Puffs ity of (FLOVENT 00:00: every 12 [place] [facility]) 110 00 (twelve) Medical mcg/actuati hours. Branch on inhaler Rinse mouth after each use. rosuvastati 2021-09 Yes [id number] 10mg Take 1 [facility] n 10 mg 1-01 tablet by ity of tablet 00:00: mouth at [place] 00 bedtime. Medical Branch diltiazem 2021-09 Yes [id number] 120mg Take 1 [facility] n[facility] 120 mg 24 1-01 capsule by [facility] hr capsule 00:00: mouth in [place] 00 the Medical morning Branch and 1 capsule in the evening. fluticasone 2021-09 Yes [id number] 2{puff} Inhale 2 [facility] propionate 1-01 Puffs ity of (FLOVENT 00:00: every 12 [place] HFA) 110 00 (twelve) Medical mcg/actuati hours. Branch on inhaler Rinse mouth after each use. rosuvastati 2021-09 Yes [id number] 10mg Take 1 [facility] n 10 mg 1-01 tablet by [facility] of tablet 00:00: mouth at [place] 00 bedtime. Medical Branch diltiazem 2021-09 Yes [id number] 120mg Take 1 [facility] nivers 120 mg 24 1-01 capsule by [facility] of hr capsule 00:00: mouth in [place] 00 the Medical morning Branch and 1 capsule in the evening. fluticasone 2021-09 Yes [id number] 2{puff} Inhale 2 [facility] propionate 1-01 Puffs ity of (FLOVENT 00:00: every 12 [place] HFA) 110 00 (twelve) Medical mcg/actuati hours. Branch on inhaler Rinse mouth after each use. rosuvastati 2021-09 Yes [id number] 10mg Take 1 [facility] n 10 mg 1-01 tablet by [facility] of tablet 00:00: mouth at [place] 00 bedtime. Medical Branch diltiazem 2021-09 Yes [id number] 120mg Take 1 [facility] nivers 120 mg 24 1-01 capsule by [facility] of hr capsule 00:00: mouth in [place] 00 the Medical morning Branch and 1 capsule in the evening. fluticasone 2021-09 Yes [id number] 2{puff} Inhale 2 [facility] propionate 1-01 Puffs ity of (FLOVENT 00:00: every 12 [place] HFA) 110 00 (twelve) Medical mcg/actuati hours. Branch on inhaler Rinse mouth after each use. rosuvastati 2021-09 Yes [id number] 10mg Take 1 [facility] n 10 mg 1-01 tablet by [facility]y of tablet 00:00: mouth at [place] 00 bedtime. Medical Branch diltiazem 2021-09 Yes [id number] 120mg Take 1 [facility] nivers 120 mg 24 1-01 capsule by [facility] of hr capsule 00:00: mouth in [place] 00 the Medical morning Branch and 1 capsule in the evening. fluticasone 2021-09 Yes [id number] 2{puff} Inhale 2 [facility] propionate 1-01 Puffs ity of (FLOVENT 00:00: every 12 [place] HFA) 110 00 (twelve) Medical mcg/actuati hours. Branch on inhaler Rinse mouth after each use. rosuvastati 2021-09 Yes [id number] 10mg Take 1 [facility] n 10 mg 09-26 tablet by [facility] of tablet 00:00: mouth at [place] 00 bedtime. Medical Branch metformin 2021-09- No [id number] 500mg Take 1 [facility] ER 500 mg 09-26 tablet by [facility] of 24 hr 00:00: 00:00 mouth [place] tablet 00 :00 daily with Medical breakfast. Branch pantoprazol 2021-09- No [id number] 40mg Take 1 [facility] e 40 mg EC 09-26 tablet by ity of tablet 00:00: 00:00 mouth in [place] 00 :00 the Medical morning. Branch SUMAtriptan 2021-09- No [id number] 50mg Take 1 [facility] 50 mg 09-26 tablet by ity of tablet 00:00: 00:00 mouth as [place] 00 :00 needed for Medical Migraine. Branch metformin 2021-09- No [id number] 500mg Take 1 [facility] ER 500 mg 09-26 tablet by [facility] of 24 hr 00:00: 00:00 mouth [place] tablet 00 :00 daily with Medical breakfast. Branch pantoprazol 2021-09- No [id number] 40mg Take 1 [facility] e 40 mg EC 09-26 tablet by ity of tablet 00:00: 00:00 mouth in [place] 00 :00 the Medical morning. Branch SUMAtriptan 2021-09- No [id number] 50mg Take 1 [facility] 50 mg 09-26 tablet by [facility]y of tablet 00:00: 00:00 mouth as [place] 00 :00 needed for Medical Migraine. Branch metformin 2021-09- No [id number] 500mg Take 1 [facility] ER 500 mg 09-26 tablet by ity of 24 hr 00:00: 00:00 mouth [place] tablet 00 :00 daily with Medical breakfast. Branch pantoprazol 2021-09- No [id number] 40mg Take 1 [facility] e 40 mg EC 09-26 tablet by ity of tablet 00:00: 00:00 mouth in [place] 00 :00 the Medical morning. Branch SUMAtriptan 2021-09- No [id number] 50mg Take 1 [facility] 50 mg 09-26 tablet by ity of tablet 00:00: 00:00 mouth as [place] 00 :00 needed for Medical Migraine. [place] metformin 2021-09- No [id number] 500mg Take 1 [facility] ER 500 mg 09-26 tablet by [facility] of 24 hr 00:00: 00:00 mouth [place] tablet 00 :00 daily with Medical breakfast. [place] pantoprazol 2021-09- No [id number] 40mg Take 1 [facility] e 40 mg EC 09-26 tablet by ity of tablet 00:00: 00:00 mouth in [place] 00 :00 the Medical morning. [place] SUMAtriptan 2021-09- No [id number] 50mg Take 1 [facility] 50 mg 09-26 tablet by ity of tablet 00:00: 00:00 mouth as [place] 00 :00 needed for Medical Migraine. [place] metformin 2021-09- No [id number] 500mg Take 1 [facility] ER 500 mg 09-26 tablet by [facility] of 24 hr 00:00: 00:00 mouth [place] tablet 00 :00 daily with Medical breakfast. [place] pantoprazol 2021-09- No [id number] 40mg Take 1 [facility] e 40 mg EC 09-26 tablet by ity of tablet 00:00: 00:00 mouth in [place] 00 :00 the Medical morning. [facility] SUMAtriptan 2021-09- No [id number] 50mg Take 1 [facility] 50 mg 09-26 tablet by ity of tablet 00:00: 00:00 mouth as [place] 00 :00 needed for Medical Migraine. [facility] pregabalin 2021-09- No [id number] 150mg Take 1 [facility] 150 mg 09-26 capsule by [facility] of capsule 00:00: 00:00 mouth in [place] 00 :00 the Medical morning Branch and 1 capsule at noon and 1 capsule in the evening. levothyroxi 2021-09- No [id number] 50ug Take 1 [facility] ne 50 mcg 09-26 tablet by [facility]y of tablet 00:00: 00:00 mouth [place] 00 :00 every Medical morning. Chromo levothyroxi 2021-09- No [id number] 50ug Take 1 [facility] ne 50 mcg 09-26 tablet by ity of tablet 00:00: 00:00 mouth [place] 00 :00 every Medical morning. Branch busPIRone 2021-09 Yes [id number] 20mg Take 2 [facility] [place] 10 mg 0-13 tablets by [facility] of tablet 00:00: mouth in [place] 00 the Medical morning Branch and 2 tablets in the evening. diltiazem 2021-09 Yes [id number] 120mg Take 1 [facility] 120 mg 24 0-13 capsule by [facility] of hr capsule 00:00: mouth in [place] 00 the Medical morning Branch and 1 capsule in the evening. levothyroxi 2021-09 Yes [id number] 50ug Take 1 [facility] ne 50 mcg 0-13 tablet by ity o f tablet 00:00: mouth [place] 00 every Medical morning. Branch losartan 50 2021-09 Yes [id number] 50mg Take 1 [facility] mg tablet 0-13 tablet by ity o f 00:00: mouth in [place] 00 the Medical morning Branch and 1 tablet in the evening. metformin 2021-09 Yes [id number] 500mg Take 1 [facility] n[facility] ER 500 mg 0-13 tablet by ity o f 24 hr 00:00: mouth [place] tablet 00 daily with Medical breakfast. Branch STOP REGULAR METFORMIN. mirabegron 2021-09 Yes [id number] 50mg Take 1 [facility] (MYRBETRIQ) 0-13 tablet by ity of 50 mg 00:00: mouth in [place] tablet 00 the Medical morning. Branch semaglutide 2021-09 Yes [id number] Inject [facility] (OZEMPIC) 0-13 0.25 mg ity of 0.25 mg or 00:00: under the [place] 0.5 mg(2 00 skin Medical mg/1.5 mL) weekly. Branch PnIj pantoprazol 2021-09 Yes [id number] 40mg Take 1 [facility] e 40 mg EC 0-13 tablet by ity of tablet 00:00: mouth in [place] 00 the Medical morning. Branch pregabalin 2021-09 Yes [id number] 150mg Take 1 [facility] 150 mg 0-13 capsule by [facility] of capsule 00:00: mouth in [place] 00 the Medical morning Branch and 1 capsule at noon and 1 capsule in the evening. rosuvastati 2021-09 Yes [id number] 10mg Take 1 [facility] n 10 mg 0-13 tablet by [facility] of tablet 00:00: mouth at [place] 00 bedtime. Medical Branch SUMAtriptan 2021-09 Yes [id number] 50mg Take 1 [facility] 50 mg 0-13 tablet by ity of tablet 00:00: mouth as [place] 00 needed for Medical Migraine. Branch topiramate 2021-09 Yes [id number] 75mg Take 3 [facility] 25 mg 0-13 tablets by ity of tablet 00:00: mouth in [place] 00 the Medical morning Branch and 3 tablets in the evening. busPIRone 2021-09 Yes [id number] 20mg Take 2 [facility] [place] 10 mg 0-13 tablets by [facility] of tablet 00:00: mouth in [place] 00 the Medical morning Branch and 2 tablets in the evening. losartan 50 2021-09 Yes [id number] 50mg Take 1 [facility] mg tablet 0-13 tablet by ity o f 00:00: mouth in [place] 00 the Medical morning Branch and 1 tablet in the evening. mirabegron 2021-09 Yes [id number] 50mg Take 1 [facility] (MYRBETRIQ) 0-13 tablet by ity of 50 mg 00:00: mouth in [place] tablet 00 the Medical morning. Branch semaglutide 2021-09 Yes [id number] Inject [facility] (OZEMPIC) 0-13 0.25 mg ity of 0.25 mg or 00:00: under the [place] 0.5 mg(2 00 skin Medical mg/1.5 mL) weekly. Branch PnIj topiramate 2021-09 Yes [id number] 75mg Take 3 [facility] 25 mg 0-13 tablets by [facility] of tablet 00:00: mouth in [place] 00 the Medical morning Branch and 3 tablets in the evening. busPIRone 2021-09 Yes [id number] 20mg Take 2 [facility] [place] 10 mg 0-13 tablets by [facility] of tablet 00:00: mouth in [place] 00 the Medical morning Branch and 2 tablets in the evening. losartan 50 2021-09 Yes [id number] 50mg Take 1 [facility] mg tablet 0-13 tablet by ity o f 00:00: mouth in [place] 00 the Medical morning Branch and 1 tablet in the evening. mirabegron 2021-09 Yes [id number] 50mg Take 1 [facility] (MYRBETRIQ) 0-13 tablet by ity of 50 mg 00:00: mouth in [place] tablet 00 the Medical morning. Branch semaglutide 2021-09 Yes [id number] Inject [facility] (OZEMPIC) 0-13 0.25 mg ity of 0.25 mg or 00:00: under the [place] 0.5 mg(2 00 skin Medical mg/1.5 mL) weekly. Branch PnIj topiramate 2021-09 Yes [id number] 75mg Take 3 [facility] 25 mg 0-13 tablets by ity of tablet 00:00: mouth in [place] 00 the Medical morning Branch and 3 tablets in the evening. busPIRone 2021-09 Yes [id number] 20mg Take 2 [facility] [place] 10 mg 0-13 tablets by ity of tablet 00:00: mouth in [place] 00 the Medical morning Branch and 2 tablets in the evening. losartan 50 2021-09 Yes [id number] 50mg Take 1 [facility] mg tablet 0-13 tablet by ity o f 00:00: mouth in [place] 00 the Medical morning Branch and 1 tablet in the evening. mirabegron 2021-09 Yes [id number] 50mg Take 1 [facility] (MYRBETRIQ) 0-13 tablet by ity of 50 mg 00:00: mouth in [place] tablet 00 the Medical morning. Branch semaglutide 2021-09 Yes [id number] Inject [facility] (OZEMPIC) 0-13 0.25 mg ity of 0.25 mg or 00:00: under the [place] 0.5 mg(2 00 skin Medical mg/1.5 mL) weekly. Branch PnIj topiramate 2021-09 Yes [id number] 75mg Take 3 [facility] 25 mg 0-13 tablets by ity of tablet 00:00: mouth in [place] 00 the Medical morning Branch and 3 tablets in the evening. busPIRone 2021-09 Yes [id number] 20mg Take 2 [facility] [place] 10 mg 0-13 tablets by [facility] of tablet 00:00: mouth in [place] 00 the Medical morning Branch and 2 tablets in the evening. losartan 50 2021-09 Yes [id number] 50mg Take 1 [facility] mg tablet 0-13 tablet by ity o f 00:00: mouth in [place] 00 the Medical morning Branch and 1 tablet in the evening. mirabegron 2021-09 Yes [id number] 50mg Take 1 [facility] (MYRBETRIQ) 0-13 tablet by ity of 50 mg 00:00: mouth in [place] tablet 00 the Medical morning. Branch semaglutide 2021-09 Yes [id number] Inject [facility] (OZEMPIC) 0-13 0.25 mg ity of 0.25 mg or 00:00: under the [place] 0.5 mg(2 00 skin Medical mg/1.5 mL) weekly. Branch PnIj topiramate 2021-09 Yes [id number] 75mg Take 3 [facility] 25 mg 0-13 tablets by ity of tablet 00:00: mouth in [place] 00 the Medical morning Branch and 3 tablets in the evening. busPIRone 2021-09 Yes [id number] 20mg Take 2 [facility] [place] 10 mg 0-13 tablets by it[facility] of tablet 00:00: mouth in [place] 00 the Medical morning Branch and 2 tablets in the evening. losartan 50 2021-09 Yes [id number] 50mg Take 1 [facility] mg tablet 0-13 tablet by ity o f 00:00: mouth in [place] 00 the Medical morning Branch and 1 tablet in the evening. mirabegron 2021-09 Yes [id number] 50mg Take 1 [facility] (MYRBETRIQ) 0-13 tablet by ity of 50 mg 00:00: mouth in [place] tablet 00 the Medical morning. Branch semaglutide 2021-09 Yes [id number] Inject [facility] (OZEMPIC) 0-13 0.25 mg ity of 0.25 mg or 00:00: under the [place] 0.5 mg(2 00 skin Medical mg/1.5 mL) weekly. Branch PnIj topiramate 2021-09 Yes [id number] 75mg Take 3 [facility] 25 mg 0-13 tablets by ity of tablet 00:00: mouth in [place] 00 the Medical morning Branch and 3 tablets in the evening. busPIRone 2021-09 Yes [id number] 20mg Take 2 [facility] [place] 10 mg 0-13 tablets by [facility]y of tablet 00:00: mouth in [place] 00 the Medical morning Branch and 2 tablets in the evening. losartan 50 2021-09 Yes [id number] 50mg Take 1 [facility] mg tablet 0-13 tablet by ity o f 00:00: mouth in [place] 00 the Medical morning Branch and 1 tablet in the evening. mirabegron 2021-09 Yes [id number] 50mg Take 1 [facility] (MYRBETRIQ) 0-13 tablet by ity of 50 mg 00:00: mouth in [place] tablet 00 the Medical morning. Branch semaglutide 2021-09 Yes [id number] Inject [facility] (OZEMPIC) 0-13 0.25 mg ity of 0.25 mg or 00:00: under the [place] 0.5 mg(2 00 skin Medical mg/1.5 mL) weekly. Branch PnIj topiramate 2021-09 Yes [id number] 75mg Take 3 [facility] 25 mg 0-13 tablets by ity of tablet 00:00: mouth in [place] 00 the Medical morning Branch and 3 tablets in the evening. busPIRone 2021-09 Yes [id number] 20mg Take 2 [facility] [place] 10 mg 0-13 tablets by it[facility] of tablet 00:00: mouth in [place] 00 the Medical morning Branch and 2 tablets in the evening. losartan 50 2021-09 Yes [id number] 50mg Take 1 [facility] mg tablet 0-13 tablet by ity o f 00:00: mouth in [place] 00 the Medical morning Branch and 1 tablet in the evening. mirabegron 2021-09 Yes [id number] 50mg Take 1 [facility] (MYRBETRIQ) 0-13 tablet by ity of 50 mg 00:00: mouth in [place] tablet 00 the Medical morning. Branch semaglutide 2021-09 Yes [id number] Inject [facility] (OZEMPIC) 0-13 0.25 mg ity of 0.25 mg or 00:00: under the [place] 0.5 mg(2 00 skin Medical mg/1.5 mL) weekly. Branch PnIj topiramate 2021-09 Yes [id number] 75mg Take 3 [facility] 25 mg 0-13 tablets by ity of tablet 00:00: mouth in [place] 00 the Medical morning Branch and 3 tablets in the evening. busPIRone 2021-09 Yes [id number] 20mg Take 2 [facility] [place] 10 mg 0-13 tablets by ity of tablet 00:00: mouth in [place] 00 the Medical morning Branch and 2 tablets in the evening. losartan 50 2021-09 Yes [id number] 50mg Take 1 [facility] mg tablet 0-13 tablet by ity o f 00:00: mouth in [place] 00 the Medical morning Branch and 1 tablet in the evening. mirabegron 2021-09 Yes [id number] 50mg Take 1 [facility] (MYRBETRIQ) 0-13 tablet by ity of 50 mg 00:00: mouth in [place] tablet 00 the Medical morning. Branch semaglutide 2021-09 Yes [id number] Inject [facility] (OZEMPIC) 0-13 0.25 mg ity of 0.25 mg or 00:00: under the [place] 0.5 mg(2 00 skin Medical mg/1.5 mL) weekly. Branch PnIj topiramate 2021-09 Yes [id number] 75mg Take 3 [facility] 25 mg 0-13 tablets by ity of tablet 00:00: mouth in [place] 00 the Medical morning Branch and 3 tablets in the evening. busPIRone 2021-09 Yes [id number] 20mg Take 2 [facility] [place] 10 mg 0-13 tablets by ity of tablet 00:00: mouth in [place] 00 the Medical morning Branch and 2 tablets in the evening. losartan 50 2021-09 Yes [id number] 50mg Take 1 [facility] mg tablet 0-13 tablet by ity o f 00:00: mouth in [place] 00 the Medical morning Branch and 1 tablet in the evening. mirabegron 2021-09 Yes [id number] 50mg Take 1 [facility] (MYRBETRIQ) 0-13 tablet by ity of 50 mg 00:00: mouth in [place] tablet 00 the Medical morning. Branch semaglutide 2021-09 Yes [id number] Inject [facility] (OZEMPIC) 0-13 0.25 mg ity of 0.25 mg or 00:00: under the [place] 0.5 mg(2 00 skin Medical mg/1.5 mL) weekly. Branch PnIj topiramate 2021-09 Yes [id number] 75mg Take 3 [facility] 25 mg 0-13 tablets by ity of tablet 00:00: mouth in [place] 00 the Medical morning Branch and 3 tablets in the evening. busPIRone 2021-09 Yes [id number] 20mg Take 2 [facility] [place] 10 mg 0-13 tablets by ity of tablet 00:00: mouth in [place] 00 the Medical morning Branch and 2 tablets in the evening. losartan 50 2021-09 Yes [id number] 50mg Take 1 [facility] mg tablet 0-13 tablet by ity o f 00:00: mouth in [place] 00 the Medical morning Branch and 1 tablet in the evening. mirabegron 2021-09 Yes [id number] 50mg Take 1 [facility] (MYRBETRIQ) 0-13 tablet by ity of 50 mg 00:00: mouth in [place] tablet 00 the Medical morning. Branch semaglutide 2021-09 Yes [id number] Inject [facility] (OZEMPIC) 0-13 0.25 mg ity of 0.25 mg or 00:00: under the [place] 0.5 mg(2 00 skin Medical mg/1.5 mL) weekly. Branch PnIj topiramate 2021-09 Yes [id number] 75mg Take 3 [facility] 25 mg 0-13 tablets by ity of tablet 00:00: mouth in [place] 00 the Medical morning Branch and 3 tablets in the evening. busPIRone 2021-09 Yes [id number] 20mg Take 2 [facility] [place] 10 mg 0-13 tablets by it[facility] of tablet 00:00: mouth in [place] 00 the Medical morning Branch and 2 tablets in the evening. losartan 50 2021-09 Yes [id number] 50mg Take 1 [facility] mg tablet 0-13 tablet by ity o f 00:00: mouth in [place] 00 the Medical morning Branch and 1 tablet in the evening. mirabegron 2021-09 Yes [id number] 50mg Take 1 [facility] (MYRBETRIQ) 0-13 tablet by ity of 50 mg 00:00: mouth in [place] tablet 00 the Medical morning. Branch semaglutide 2021-09 Yes [id number] Inject [facility] (OZEMPIC) 0-13 0.25 mg ity of 0.25 mg or 00:00: under the [place] 0.5 mg(2 00 skin Medical mg/1.5 mL) weekly. Branch PnIj topiramate 2021-09 Yes [id number] 75mg Take 3 [facility] 25 mg 0-13 tablets by ity of tablet 00:00: mouth in [place] 00 the Medical morning Branch and 3 tablets in the evening. busPIRone 2021-09 Yes [id number] 20mg Take 2 [facility] [place] 10 mg 0-13 tablets by [facility] of tablet 00:00: mouth in [place] 00 the Medical morning Branch and 2 tablets in the evening. losartan 50 2021-09 Yes [id number] 50mg Take 1 [facility] mg tablet 0-13 tablet by ity o f 00:00: mouth in [place] 00 the Medical morning Branch and 1 tablet in the evening. mirabegron 2021-09 Yes [id number] 50mg Take 1 [facility] (MYRBETRIQ) 0-13 tablet by ity of 50 mg 00:00: mouth in [place] tablet 00 the Medical morning. Branch semaglutide 2021-09 Yes [id number] Inject [facility] (OZEMPIC) 0-13 0.25 mg ity of 0.25 mg or 00:00: under the [place] 0.5 mg(2 00 skin Medical mg/1.5 mL) weekly. Branch PnIj topiramate 2021-09 Yes [id number] 75mg Take 3 [facility] 25 mg 0-13 tablets by ity of tablet 00:00: mouth in [place] 00 the Medical morning Branch and 3 tablets in the evening. busPIRone 2021-09 Yes [id number] 20mg Take 2 [facility] [place] 10 mg 0-13 tablets by ity of tablet 00:00: mouth in [place] 00 the Medical morning Branch and 2 tablets in the evening. losartan 50 2021-09 Yes [id number] 50mg Take 1 [facility] mg tablet 0-13 tablet by ity o f 00:00: mouth in [place] 00 the Medical morning Branch and 1 tablet in the evening. mirabegron 2021-09 Yes [id number] 50mg Take 1 [facility] (MYRBETRIQ) 0-13 tablet by ity of 50 mg 00:00: mouth in [place] tablet 00 the Medical morning. Branch semaglutide 2021-09 Yes [id number] Inject [facility] (OZEMPIC) 0-13 0.25 mg ity of 0.25 mg or 00:00: under the [place] 0.5 mg(2 00 skin Medical mg/1.5 mL) weekly. Branch PnIj topiramate 2021-09 Yes [id number] 75mg Take 3 [facility] 25 mg 0-13 tablets by ity of tablet 00:00: mouth in [place] 00 the Medical morning Branch and 3 tablets in the evening. busPIRone 2021-09 Yes [id number] 20mg Take 2 [facility] [place] 10 mg 0-13 tablets by ity of tablet 00:00: mouth in [place] 00 the Medical morning Branch and 2 tablets in the evening. losartan 50 2021-09 Yes [id number] 50mg Take 1 [facility] mg tablet 0-13 tablet by ity o f 00:00: mouth in [place] 00 the Medical morning Branch and 1 tablet in the evening. mirabegron 2021-09 Yes [id number] 50mg Take 1 [facility] (MYRBETRIQ) 0-13 tablet by ity of 50 mg 00:00: mouth in [place] tablet 00 the Medical morning. Branch semaglutide 2021-09 Yes [id number] Inject [facility] (OZEMPIC) 0-13 0.25 mg ity of 0.25 mg or 00:00: under the [place] 0.5 mg(2 00 skin Medical mg/1.5 mL) weekly. Branch PnIj topiramate 2021-09 Yes [id number] 75mg Take 3 [facility] 25 mg 0-13 tablets by ity of tablet 00:00: mouth in [place] 00 the Medical morning Branch and 3 tablets in the evening. busPIRone 2021-09 Yes [id number] 20mg Take 2 [facility] [place] 10 mg 0-13 tablets by [facility]y of tablet 00:00: mouth in [place] 00 the Medical morning Branch and 2 tablets in the evening. losartan 50 2021-09 Yes [id number] 50mg Take 1 [facility] mg tablet 0-13 tablet by ity o f 00:00: mouth in [place] 00 the Medical morning Branch and 1 tablet in the evening. mirabegron 2021-09 Yes [id number] 50mg Take 1 [facility] (MYRBETRIQ) 0-13 tablet by ity of 50 mg 00:00: mouth in [place] tablet 00 the Medical morning. Branch semaglutide 2021-09 Yes [id number] Inject [facility] (OZEMPIC) 0-13 0.25 mg ity of 0.25 mg or 00:00: under the [place] 0.5 mg(2 00 skin Medical mg/1.5 mL) weekly. Branch PnIj topiramate 2021-09 Yes [id number] 75mg Take 3 [facility] 25 mg 0-13 tablets by ity of tablet 00:00: mouth in [place] 00 the Medical morning Branch and 3 tablets in the evening. busPIRone 2021-09 Yes [id number] 20mg Take 2 [facility] [place] 10 mg 0-13 tablets by ity of tablet 00:00: mouth in [place] 00 the Medical morning Branch and 2 tablets in the evening. losartan 50 2021-09 Yes [id number] 50mg Take 1 [facility] mg tablet 0-13 tablet by ity o f 00:00: mouth in [place] 00 the Medical morning Branch and 1 tablet in the evening. mirabegron 2021-09 Yes [id number] 50mg Take 1 [facility] (MYRBETRIQ) 0-13 tablet by ity of 50 mg 00:00: mouth in [place] tablet 00 the Medical morning. Branch semaglutide 2021-09 Yes [id number] Inject [facility] (OZEMPIC) 0-13 0.25 mg ity of 0.25 mg or 00:00: under the [place] 0.5 mg(2 00 skin Medical mg/1.5 mL) weekly. Branch PnIj topiramate 2021-09 Yes [id number] 75mg Take 3 [facility] 25 mg 0-13 tablets by ity of tablet 00:00: mouth in [place] 00 the Medical morning Branch and 3 tablets in the evening. busPIRone 2021-09 Yes [id number] 20mg Take 2 [facility] [place] 10 mg 0-13 tablets by [facility] of tablet 00:00: mouth in [place] 00 the Medical morning Branch and 2 tablets in the evening. losartan 50 2021-09 Yes [id number] 50mg Take 1 [facility] mg tablet 0-13 tablet by ity o f 00:00: mouth in [place] 00 the Medical morning Branch and 1 tablet in the evening. mirabegron 2021-09 Yes [id number] 50mg Take 1 [facility] (MYRBETRIQ) 0-13 tablet by ity of 50 mg 00:00: mouth in [place] tablet 00 the Medical morning. Branch semaglutide 2021-09 Yes [id number] Inject [facility] (OZEMPIC) 0-13 0.25 mg ity of 0.25 mg or 00:00: under the [place] 0.5 mg(2 00 skin Medical mg/1.5 mL) weekly. Branch PnIj topiramate 2021-09 Yes [id number] 75mg Take 3 [facility] 25 mg 0-13 tablets by [facility]y of tablet 00:00: mouth in [place] 00 the Medical morning Branch and 3 tablets in the evening. busPIRone 2021-09 Yes [id number] 20mg Take 2 [facility] [place] 10 mg 0-13 tablets by [facility] of tablet 00:00: mouth in [place] 00 the Medical morning Branch and 2 tablets in the evening. losartan 50 2021-09 Yes [id number] 50mg Take 1 [facility] mg tablet 0-13 tablet by ity o f 00:00: mouth in [place] 00 the Medical morning Branch and 1 tablet in the evening. mirabegron 2021-09 Yes [id number] 50mg Take 1 [facility] (MYRBETRIQ) 0-13 tablet by ity of 50 mg 00:00: mouth in [place] tablet 00 the Medical morning. Branch semaglutide 2021-09 Yes [id number] Inject [facility] (OZEMPIC) 0-13 0.25 mg ity of 0.25 mg or 00:00: under the [place] 0.5 mg(2 00 skin Medical mg/1.5 mL) weekly. Branch PnIj topiramate 2021-09 Yes [id number] 75mg Take 3 [facility] 25 mg 0-13 tablets by [facility]y of tablet 00:00: mouth in [place] 00 the Medical morning Branch and 3 tablets in the evening. busPIRone 2021-09 Yes [id number] 20mg Take 2 [facility] [place] 10 mg 0-13 tablets by [facility] of tablet 00:00: mouth in [place] 00 the Medical morning Branch and 2 tablets in the evening. losartan 50 2021-09 Yes [id number] 50mg Take 1 [facility] mg tablet 0-13 tablet by ity o f 00:00: mouth in [place] 00 the Medical morning Branch and 1 tablet in the evening. mirabegron 2021-09 Yes [id number] 50mg Take 1 [facility] (MYRBETRIQ) 0-13 tablet by ity of 50 mg 00:00: mouth in [place] tablet 00 the Medical morning. Branch semaglutide 2021-09 Yes [id number] Inject [facility] (OZEMPIC) 0-13 0.25 mg ity of 0.25 mg or 00:00: under the [place] 0.5 mg(2 00 skin Medical mg/1.5 mL) weekly. Branch PnIj topiramate 2021-09 Yes [id number] 75mg Take 3 [facility] 25 mg 0-13 tablets by [facility] of tablet 00:00: mouth in [place] 00 the Medical morning Branch and 3 tablets in the evening. busPIRone 2021-09 Yes [id number] 20mg Take 2 [facility] [place] 10 mg 0-13 tablets by [facility] of tablet 00:00: mouth in [place] 00 the Medical morning Branch and 2 tablets in the evening. losartan 50 2021-09 Yes [id number] 50mg Take 1 [facility] mg tablet 0-13 tablet by ity o f 00:00: mouth in [place] 00 the Medical morning Branch and 1 tablet in the evening. mirabegron 2021-09 Yes [id number] 50mg Take 1 [facility] (MYRBETRIQ) 0-13 tablet by ity of 50 mg 00:00: mouth in [place] tablet 00 the Medical morning. Branch semaglutide 2021-09 Yes [id number] Inject [facility] (OZEMPIC) 0-13 0.25 mg ity of 0.25 mg or 00:00: under the [place] 0.5 mg(2 00 skin Medical mg/1.5 mL) weekly. Branch PnIj topiramate 2021-09 Yes [id number] 75mg Take 3 [facility] 25 mg 0-13 tablets by [facility] of tablet 00:00: mouth in [place] 00 the Medical morning Branch and 3 tablets in the evening. busPIRone 2021-09 Yes [id number] 20mg Take 2 [facility] [place] 10 mg 0-13 tablets by [facility] of tablet 00:00: mouth in [place] 00 the Medical morning Branch and 2 tablets in the evening. losartan 50 2021-09 Yes [id number] 50mg Take 1 [facility] mg tablet 0-13 tablet by [facility] o f 00:00: mouth in [place] 00 the Medical morning Branch and 1 tablet in the evening. mirabegron 2021-09 Yes [id number] 50mg Take 1 [facility] (MYRBETRIQ) 0-13 tablet by [facility] of 50 mg 00:00: mouth in [place] tablet 00 the Medical morning. Branch semaglutide 2021-09 Yes [id number] Inject [facility] (OZEMPIC) 0-13 0.25 mg ity of 0.25 mg or 00:00: under the [place] 0.5 mg(2 00 skin Medical mg/1.5 mL) weekly. Branch PnIj topiramate 2021-09 Yes [id number] 75mg Take 3 [facility] 25 mg 0-13 tablets by [facility] of tablet 00:00: mouth in [place] 00 the Medical morning Branch and 3 tablets in the evening. busPIRone 2021-09 Yes [id number] 20mg Take 2 [facility] 10 mg 0-13 tablets by [facility] tablet 00:00: mouth in [place] 00 the Medical morning Branch and 2 tablets in the evening. losartan 50 2021-09 Yes [id number] 50mg Take 1 [facility] mg tablet 0-13 tablet by [facility] o f 00:00: mouth in [place] 00 the Medical morning Branch and 1 tablet in the evening. mirabegron 2021-09 Yes [id number] 50mg Take 1 [facility] (MYRBETRIQ) 0-13 tablet by [facility] of 50 mg 00:00: mouth in [place] tablet 00 the Medical morning. Branch semaglutide 2021-09 Yes [id number] Inject [facility] (OZEMPIC) 0-13 0.25 mg ity of 0.25 mg or 00:00: under the [place] 0.5 mg(2 00 skin Medical mg/1.5 mL) weekly. Branch PnIj topiramate 2021-09 Yes [id number] 75mg Take 3 [facility] 25 mg 0-13 tablets by [facility] of tablet 00:00: mouth in [place] 00 the Medical morning Branch and 3 tablets in the evening. losartan 50 2021-09 Yes [id number] 50mg Take 1 [facility] mg tablet 0-13 tablet by [facility] o f 00:00: mouth in [place] 00 the Medical morning Branch and 1 tablet in the evening. mirabegron 2021-09 Yes [id number] 50mg Take 1 [facility] (MYRBETRIQ) 0-13 tablet by [facility] of 50 mg 00:00: mouth in [place] tablet 00 the Medical morning. Branch semaglutide 2021-09 Yes [id number] Inject [facility] (OZEMPIC) 0-13 0.25 mg ity of 0.25 mg or 00:00: under the [place] 0.5 mg(2 00 skin Medical mg/1.5 mL) weekly. Branch PnIj topiramate 2021-09 Yes [id number] 75mg Take 3 [facility] 25 mg 0-13 tablets by [facility] of tablet 00:00: mouth in [place] 00 the Medical morning Branch and 3 tablets in the evening. losartan 50 2021-09 Yes [id number] 50mg Take 1 [facility] mg tablet 0-13 tablet by [facility] o f 00:00: mouth in [place] 00 the Medical morning Branch and 1 tablet in the evening. mirabegron 2021-09 Yes [id number] 50mg Take 1 [facility] (MYRBETRIQ) 0-13 tablet by [facility] of 50 mg 00:00: mouth in [place] tablet 00 the Medical morning. Branch semaglutide 2021-09 Yes [id number] Inject [facility] (OZEMPIC) 0-13 0.25 mg ity of 0.25 mg or 00:00: under the [place] 0.5 mg(2 00 skin Medical mg/1.5 mL) weekly. Branch PnIj topiramate 2021-09 Yes [id number] 75mg Take 3 [facility] 25 mg 0-13 tablets by [facility] of tablet 00:00: mouth in [place] 00 the Medical morning Branch and 3 tablets in the evening. losartan 50 2021-09 Yes [id number] 50mg Take 1 [facility] mg tablet 0-13 tablet by [facility] o f 00:00: mouth in [place] 00 the Medical morning Branch and 1 tablet in the evening. mirabegron 2021-09 Yes [id number] 50mg Take 1 [facility] (MYRBETRIQ) 0-13 tablet by [facility] of 50 mg 00:00: mouth in [place] tablet 00 the Medical morning. Branch semaglutide 2021-09 Yes [id number] Inject [facility] (OZEMPIC) 0-13 0.25 mg ity of 0.25 mg or 00:00: under the [place] 0.5 mg(2 00 skin Medical mg/1.5 mL) weekly. Branch PnIj topiramate 2021-09 Yes [id number] 75mg Take 3 [facility] 25 mg 0-13 tablets by [facility] of tablet 00:00: mouth in [place] 00 the Medical morning Branch and 3 tablets in the evening. losartan 50 2021-09 Yes [id number] 50mg Take 1 [facility] mg tablet 0-13 tablet by [facility] o f 00:00: mouth in [place] 00 the Medical morning Branch and 1 tablet in the evening. mirabegron 2021-09 Yes [id number] 50mg Take 1 [facility] (MYRBETRIQ) 0-13 tablet by [facility] of 50 mg 00:00: mouth in [place] tablet 00 the Medical morning. Branch semaglutide 2021-09 Yes [id number] Inject [facility] (OZEMPIC) 0-13 0.25 mg ity of 0.25 mg or 00:00: under the [place] 0.5 mg(2 00 skin Medical mg/1.5 mL) weekly. Branch PnIj topiramate 2021-09 Yes [id number] 75mg Take 3 [facility] 25 mg 0-13 tablets by [facility] of tablet 00:00: mouth in [place] 00 the Medical morning Branch and 3 tablets in the evening. losartan 50 2021-09 Yes [id number] 50mg Take 1 [facility] mg tablet 0-13 tablet by [facility] o f 00:00: mouth in [place] 00 the Medical morning Branch and 1 tablet in the evening. mirabegron 2021-09 Yes [id number] 50mg Take 1 [facility] (MYRBETRIQ) 0-13 tablet by [facility] of 50 mg 00:00: mouth in [place] tablet 00 the Medical morning. Branch semaglutide 2021-09 Yes [id number] Inject [facility] (OZEMPIC) 0-13 0.25 mg ity of 0.25 mg or 00:00: under the [place] 0.5 mg(2 00 skin Medical mg/1.5 mL) weekly. Branch PnIj topiramate 2021-09 Yes [id number] 75mg Take 3 [facility] 25 mg 0-13 tablets by [facility] of tablet 00:00: mouth in [place] 00 the Medical morning Branch and 3 tablets in the evening. losartan 50 2021-09 Yes [id number] 50mg Take 1 [facility] mg tablet 0-13 tablet by [facility] o f 00:00: mouth in [place] 00 the Medical morning Branch and 1 tablet in the evening. mirabegron 2021-09 Yes [id number] 50mg Take 1 [facility] (MYRBETRIQ) 0-13 tablet by [facility] of 50 mg 00:00: mouth in [place] tablet 00 the Medical morning. Branch semaglutide 2021-09 Yes [id number] Inject [facility] (OZEMPIC) 0-13 0.25 mg ity of 0.25 mg or 00:00: under the [place] 0.5 mg(2 00 skin Medical mg/1.5 mL) weekly. Branch PnIj topiramate 2021-09 Yes [id number] 75mg Take 3 [facility] 25 mg 0-13 tablets by [facility] of tablet 00:00: mouth in [place] 00 the Medical morning Branch and 3 tablets in the evening. losartan 50 2021-09 Yes [id number] 50mg Take 1 [facility] mg tablet 0-13 tablet by [facility] o f 00:00: mouth in [place] 00 the Medical morning Branch and 1 tablet in the evening. mirabegron 2021-09 Yes [id number] 50mg Take 1 [facility] (MYRBETRIQ) 0-13 tablet by [facility] of 50 mg 00:00: mouth in [place] tablet 00 the Medical morning. Branch semaglutide 2021-09 Yes [id number] Inject [facility] (OZEMPIC) 0-13 0.25 mg ity of 0.25 mg or 00:00: under the [place] 0.5 mg(2 00 skin Medical mg/1.5 mL) weekly. Branch PnIj topiramate 2021-09 Yes [id number] 75mg Take 3 [facility] 25 mg 0-13 tablets by [facility] of tablet 00:00: mouth in [place] 00 the Medical morning Branch and 3 tablets in the evening. losartan 50 2021-09 Yes [id number] 50mg Take 1 [facility] mg tablet 0-13 tablet by [facility] o f 00:00: mouth in [place] 00 the Medical morning Branch and 1 tablet in the evening. mirabegron 2021-09 Yes [id number] 50mg Take 1 [facility] (MYRBETRIQ) 0-13 tablet by [facility] of 50 mg 00:00: mouth in [place] tablet 00 the Medical morning. Branch semaglutide 2021-09 Yes [id number] Inject [facility] (OZEMPIC) 0-13 0.25 mg ity of 0.25 mg or 00:00: under the [place] 0.5 mg(2 00 skin Medical mg/1.5 mL) weekly. Branch PnIj topiramate 2021-09 Yes [id number] 75mg Take 3 [facility] 25 mg 0-13 tablets by [facility] of tablet 00:00: mouth in [place] 00 the Medical morning Branch and 3 tablets in the evening. losartan 50 2021-09 Yes [id number] 50mg Take 1 [facility] mg tablet 0-13 tablet by [facility] o f 00:00: mouth in [place] 00 the Medical morning Branch and 1 tablet in the evening. mirabegron 2021-09 Yes [id number] 50mg Take 1 [facility] (MYRBETRIQ) 0-13 tablet by [facility] of 50 mg 00:00: mouth in [place] tablet 00 the Medical morning. Branch semaglutide 2021-09 Yes [id number] Inject [facility] (OZEMPIC) 0-13 0.25 mg ity of 0.25 mg or 00:00: under the [place] 0.5 mg(2 00 skin Medical mg/1.5 mL) weekly. Branch PnIj topiramate 2021-09 Yes [id number] 75mg Take 3 [facility] 25 mg 0-13 tablets by [facility] of tablet 00:00: mouth in [place] 00 the Medical morning Branch and 3 tablets in the evening. losartan 50 2021-09 Yes [id number] 50mg Take 1 [facility] mg tablet 0-13 tablet by [facility] o f 00:00: mouth in [place] 00 the Medical morning Branch and 1 tablet in the evening. mirabegron 2021-09 Yes [id number] 50mg Take 1 [facility] (MYRBETRIQ) 0-13 tablet by [facility] of 50 mg 00:00: mouth in [place] tablet 00 the Medical morning. Branch semaglutide 2021-09 Yes [id number] Inject [facility] (OZEMPIC) 0-13 0.25 mg ity of 0.25 mg or 00:00: under the [place] 0.5 mg(2 00 skin Medical mg/1.5 mL) weekly. Branch PnIj topiramate 2021-09 Yes [id number] 75mg Take 3 [facility] 25 mg 0-13 tablets by [facility] of tablet 00:00: mouth in [place] the Medical morning Branch and 3 tablets in the evening. losartan 50 2021-09 Yes [id number] 50mg Take 1 [facility] mg tablet 0-13 tablet by [facility] o f 00:00: mouth in [place] the Medical morning Branch and 1 tablet in the evening. mirabegron 2021-09 Yes [id number] 50mg Take 1 [facility] (MYRBETRIQ) 0-13 tablet by [facility] of 50 mg 00:00: mouth in [place] tablet 00 the Medical morning. Branch semaglutide 2021-09 Yes [id number] Inject [facility] (OZEMPIC) 0-13 0.25 mg ity of 0.25 mg or 00:00: under the [place] 0.5 mg(2 00 skin Medical mg/1.5 mL) weekly. Branch PnIj topiramate 2021-09 Yes [id number] 75mg Take 3 [facility] 25 mg 0-13 tablets by [facility] of tablet 00:00: mouth in [place] 00 the Medical morning Branch and 3 tablets in the evening. losartan 50 2021-09 Yes [id number] 50mg Take 1 [facility] mg tablet 0-13 tablet by [facility] o f 00:00: mouth in [place] 00 the Medical morning Branch and 1 tablet in the evening. mirabegron 2021-09 Yes [id number] 50mg Take 1 [facility] (MYRBETRIQ) 0-13 tablet by [facility] of 50 mg 00:00: mouth in [place] tablet 00 the Medical morning. Branch semaglutide 2021-09 Yes [id number] Inject [facility] (OZEMPIC) 0-13 0.25 mg ity of 0.25 mg or 00:00: under the [place] 0.5 mg(2 00 skin Medical mg/1.5 mL) weekly. Branch PnIj topiramate 2021-09 Yes [id number] 75mg Take 3 [facility] 25 mg 0-13 tablets by [facility] of tablet 00:00: mouth in [place] 00 the Medical morning Branch and 3 tablets in the evening. losartan 50 2021-09 Yes [id number] 50mg Take 1 [facility] mg tablet 0-13 tablet by [facility] o f 00:00: mouth in [place] 00 the Medical morning Branch and 1 tablet in the evening. mirabegron 2021-09 Yes [id number] 50mg Take 1 [facility] (MYRBETRIQ) 0-13 tablet by [facility] of 50 mg 00:00: mouth in [place] tablet 00 the Medical morning. Branch semaglutide 2021-09 Yes [id number] Inject [facility] (OZEMPIC) 0-13 0.25 mg ity of 0.25 mg or 00:00: under the [place] 0.5 mg(2 00 skin Medical mg/1.5 mL) weekly. Branch PnIj topiramate 2021-09 Yes [id number] 75mg Take 3 [facility] 25 mg 0-13 tablets by [facility] of tablet 00:00: mouth in [place] the Medical morning Branch and 3 tablets in the evening. losartan 50 2021-09 Yes [id number] 50mg Take 1 [facility] mg tablet 0-13 tablet by [facility] o f 00:00: mouth in [place] 00 the Medical morning Branch and 1 tablet in the evening. mirabegron 2021-09 Yes [id number] 50mg Take 1 [facility] (MYRBETRIQ) 0-13 tablet by [facility] of 50 mg 00:00: mouth in [place] tablet 00 the Medical morning. Branch semaglutide 2021-09 Yes [id number] Inject [facility] (OZEMPIC) 0-13 0.25 mg ity of 0.25 mg or 00:00: under the [place] 0.5 mg(2 00 skin Medical mg/1.5 mL) weekly. Branch PnIj topiramate 2021-09 Yes [id number] 75mg Take 3 [facility] 25 mg 0-13 tablets by [facility] of tablet 00:00: mouth in [place] 00 the Medical morning Branch and 3 tablets in the evening. losartan 50 2021-09 Yes [id number] 50mg Take 1 [facility] mg tablet 0-13 tablet by it[facility] o f 00:00: mouth in [place] 00 the Medical morning Branch and 1 tablet in the evening. mirabegron 2021-09 Yes [id number] 50mg Take 1 [facility] (MYRBETRIQ) 0-13 tablet by [facility] of 50 mg 00:00: mouth in [place] tablet 00 the Medical morning. Branch semaglutide 2021-09 Yes [id number] Inject [facility] (OZEMPIC) 0-13 0.25 mg ity of 0.25 mg or 00:00: under the [place] 0.5 mg(2 00 skin Medical mg/1.5 mL) weekly. Branch PnIj topiramate 2021-09 Yes [id number] 75mg Take 3 [facility] 25 mg 0-13 tablets by [facility] of tablet 00:00: mouth in [place] 00 the Medical morning Branch and 3 tablets in the evening. losartan 50 2021-09 Yes [id number] 50mg Take 1 [facility] mg tablet 0-13 tablet by it[facility] o f 00:00: mouth in [place] 00 the Medical morning Branch and 1 tablet in the evening. mirabegron 2021-09 Yes [id number] 50mg Take 1 [facility] (MYRBETRIQ) 0-13 tablet by [facility] of 50 mg 00:00: mouth in [place] tablet 00 the Medical morning. Branch semaglutide 2021-09 Yes [id number] Inject [facility] (OZEMPIC) 0-13 0.25 mg ity of 0.25 mg or 00:00: under the [place] 0.5 mg(2 00 skin Medical mg/1.5 mL) weekly. Branch PnIj topiramate 2021-09 Yes [id number] 75mg Take 3 [facility] 25 mg 0-13 tablets by [facility] of tablet 00:00: mouth in [place] 00 the Medical morning Branch and 3 tablets in the evening. losartan 50 2021-09 Yes [id number] 50mg Take 1 [facility] mg tablet 0-13 tablet by it[facility] o f 00:00: mouth in [place] 00 the Medical morning Branch and 1 tablet in the evening. mirabegron 2021-09 Yes [id number] 50mg Take 1 [facility] (MYRBETRIQ) 0-13 tablet by [facility] of 50 mg 00:00: mouth in [place] tablet 00 the Medical morning. Branch semaglutide 2021-09 Yes [id number] Inject [facility] (OZEMPIC) 0-13 0.25 mg ity of 0.25 mg or 00:00: under the [place] 0.5 mg(2 00 skin Medical mg/1.5 mL) weekly. Branch PnIj topiramate 2021-09 Yes [id number] 75mg Take 3 [facility] 25 mg 0-13 tablets by [facility] of tablet 00:00: mouth in [place] 00 the Medical morning Branch and 3 tablets in the evening. losartan 50 2021-09 Yes [id number] 50mg Take 1 [facility] mg tablet 0-13 tablet by it[facility] o f 00:00: mouth in [place] 00 the Medical morning Branch and 1 tablet in the evening. mirabegron 2021-09 Yes [id number] 50mg Take 1 [facility] (MYRBETRIQ) 0-13 tablet by [facility]y of 50 mg 00:00: mouth in [place] tablet 00 the Medical morning. Branch semaglutide 2021-09 Yes [id number] Inject [facility] (OZEMPIC) 0-13 0.25 mg ity of 0.25 mg or 00:00: under the [place] 0.5 mg(2 00 skin Medical mg/1.5 mL) weekly. Branch PnIj topiramate 2021-09 Yes [id number] 75mg Take 3 [facility] 25 mg 0-13 tablets by [facility] of tablet 00:00: mouth in [place] 00 the Medical morning Branch and 3 tablets in the evening. losartan 50 2021-09 Yes [id number] 50mg Take 1 [facility] mg tablet 0-13 tablet by ity o f 00:00: mouth in [place] 00 the Medical morning Branch and 1 tablet in the evening. mirabegron 2021-09 Yes [id number] 50mg Take 1 [facility] (MYRBETRIQ) 0-13 tablet by [facility] of 50 mg 00:00: mouth in [place] tablet 00 the Medical morning. Branch semaglutide 2021-09 Yes [id number] Inject [facility] (OZEMPIC) 0-13 0.25 mg ity of 0.25 mg or 00:00: under the [place] 0.5 mg(2 00 skin Medical mg/1.5 mL) weekly. Branch PnIj topiramate 2021-09 Yes [id number] 75mg Take 3 [facility] 25 mg 0-13 tablets by [facility] of tablet 00:00: mouth in [place] 00 the Medical morning Branch and 3 tablets in the evening. losartan 50 2021-09 Yes [id number] 50mg Take 1 [facility] mg tablet 0-13 tablet by ity o f 00:00: mouth in [place] 00 the Medical morning Branch and 1 tablet in the evening. mirabegron 2021-09 Yes [id number] 50mg Take 1 [facility] (MYRBETRIQ) 0-13 tablet by ity of 50 mg 00:00: mouth in [place] tablet 00 the Medical morning. Branch semaglutide 2021-09 Yes [id number] Inject [facility] (OZEMPIC) 0-13 0.25 mg ity of 0.25 mg or 00:00: under the [place] 0.5 mg(2 00 skin Medical mg/1.5 mL) weekly. Branch PnIj topiramate 2021-09 Yes [id number] 75mg Take 3 [facility] 25 mg 0-13 tablets by [facility] of tablet 00:00: mouth in [place] 00 the Medical morning Branch and 3 tablets in the evening. losartan 50 2021-09 Yes [id number] 50mg Take 1 [facility] mg tablet 0-13 tablet by ity o f 00:00: mouth in [place] 00 the Medical morning Branch and 1 tablet in the evening. mirabegron 2021-09 Yes [id number] 50mg Take 1 [facility] (MYRBETRIQ) 0-13 tablet by [facility]y of 50 mg 00:00: mouth in [place] tablet 00 the Medical morning. Branch semaglutide 2021-09 Yes [id number] Inject [facility] (OZEMPIC) 0-13 0.25 mg ity of 0.25 mg or 00:00: under the [place] 0.5 mg(2 00 skin Medical mg/1.5 mL) weekly. Branch PnIj topiramate 2021-09 Yes [id number] 75mg Take 3 [facility] 25 mg 0-13 tablets by [facility] of tablet 00:00: mouth in [place] 00 the Medical morning Branch and 3 tablets in the evening. losartan 50 2021-09 Yes [id number] 50mg Take 1 [facility] mg tablet 0-13 tablet by ity o f 00:00: mouth in [place] 00 the Medical morning Branch and 1 tablet in the evening. mirabegron 2021-09 Yes [id number] 50mg Take 1 [facility] (MYRBETRIQ) 0-13 tablet by [facility]y of 50 mg 00:00: mouth in [place] tablet 00 the Medical morning. Branch topiramate 2021-09 Yes [id number] 75mg Take 3 [facility] 25 mg 0-13 tablets by [facility] of tablet 00:00: mouth in [place] 00 the Medical morning Branch and 3 tablets in the evening. losartan 50 2021-09 Yes [id number] 50mg Take 1 [facility] mg tablet 0-13 tablet by ity o f 00:00: mouth in [place] 00 the Medical morning Branch and 1 tablet in the evening. mirabegron 2021-09 Yes [id number] 50mg Take 1 [facility] (MYRBETRIQ) 0-13 tablet by ity of 50 mg 00:00: mouth in [place] tablet 00 the Medical morning. Branch topiramate 2021-09 Yes [id number] 75mg Take 3 [facility] 25 mg 0-13 tablets by [facility] of tablet 00:00: mouth in [place] 00 the Medical morning Branch and 3 tablets in the evening. losartan 50 2021-09 Yes [id number] 50mg Take 1 [facility] mg tablet 0-13 tablet by ity o f 00:00: mouth in [place] 00 the Medical morning Branch and 1 tablet in the evening. mirabegron 2021-09 Yes [id number] 50mg Take 1 [facility] (MYRBETRIQ) 0-13 tablet by ity of 50 mg 00:00: mouth in [place] tablet 00 the Medical morning. Branch topiramate 2021-09 Yes [id number] 75mg Take 3 [facility] 25 mg 0-13 tablets by [facility] of tablet 00:00: mouth in [place] 00 the Medical morning Branch and 3 tablets in the evening. losartan 50 2021-09 Yes [id number] 50mg Take 1 [facility] mg tablet 0-13 tablet by ity o f 00:00: mouth in [place] 00 the Medical morning Branch and 1 tablet in the evening. mirabegron 2021-09 Yes [id number] 50mg Take 1 [facility] (MYRBETRIQ) 0-13 tablet by [facility]y of 50 mg 00:00: mouth in [place] tablet 00 the Medical morning. Branch topiramate 2021-09 Yes [id number] 75mg Take 3 [facility] 25 mg 0-13 tablets by [facility] of tablet 00:00: mouth in [place] 00 the Medical morning Branch and 3 tablets in the evening. losartan 50 2021-09 Yes [id number] 50mg Take 1 [facility] mg tablet 0-13 tablet by it[facility] o f 00:00: mouth in [place] 00 the Medical morning Branch and 1 tablet in the evening. mirabegron 2021-09 Yes [id number] 50mg Take 1 [facility] (MYRBETRIQ) 0-13 tablet by ity of 50 mg 00:00: mouth in [place] tablet 00 the Medical morning. Branch topiramate 2021-09 Yes [id number] 75mg Take 3 [facility] 25 mg 0-13 tablets by [facility] of tablet 00:00: mouth in [place] 00 the Medical morning Branch and 3 tablets in the evening. losartan 50 2021-09 Yes [id number] 50mg Take 1 [facility] mg tablet 0-13 tablet by ity o f 00:00: mouth in [place] 00 the Medical morning Branch and 1 tablet in the evening. mirabegron 2021-09 Yes [id number] 50mg Take 1 [facility] (MYRBETRIQ) 0-13 tablet by ity of 50 mg 00:00: mouth in [place] tablet 00 the Medical morning. Branch topiramate 2021-09 Yes [id number] 75mg Take 3 [facility] 25 mg 0-13 tablets by [facility] of tablet 00:00: mouth in [place] 00 the Medical morning Branch and 3 tablets in the evening. losartan 50 2021-09 Yes [id number] 50mg Take 1 [facility] mg tablet 0-13 tablet by it[facility] o f 00:00: mouth in [place] 00 the Medical morning Branch and 1 tablet in the evening. mirabegron 2021-09 Yes [id number] 50mg Take 1 [facility] (MYRBETRIQ) 0-13 tablet by ity of 50 mg 00:00: mouth in [place] tablet 00 the Medical morning. Branch topiramate 2021-09 Yes [id number] 75mg Take 3 [facility] 25 mg 0-13 tablets by [facility] of tablet 00:00: mouth in [place] 00 the Medical morning Branch and 3 tablets in the evening. losartan 50 2021-09 Yes [id number] 50mg Take 1 [facility] mg tablet 0-13 tablet by [facility] o f 00:00: mouth in [place] 00 the Medical morning Branch and 1 tablet in the evening. mirabegron 2021-09 Yes [id number] 50mg Take 1 [facility] (MYRBETRIQ) 0-13 tablet by [facility]y of 50 mg 00:00: mouth in [place] tablet 00 the Medical morning. Branch topiramate 2021-09 Yes [id number] 75mg Take 3 [facility] 25 mg 0-13 tablets by [facility] of tablet 00:00: mouth in [place] 00 the Medical morning Branch and 3 tablets in the evening. losartan 50 2021-09 Yes [id number] 50mg Take 1 [facility] mg tablet 0-13 tablet by ity o f 00:00: mouth in [place] 00 the Medical morning Branch and 1 tablet in the evening. mirabegron 2021-09 Yes [id number] 50mg Take 1 [facility] (MYRBETRIQ) 0-13 tablet by [facility]y of 50 mg 00:00: mouth in [place] tablet 00 the Medical morning. Branch topiramate 2021-09 Yes [id number] 75mg Take 3 [facility] 25 mg 0-13 tablets by [facility] of tablet 00:00: mouth in [place] 00 the Medical morning Branch and 3 tablets in the evening. losartan 50 2021-09 Yes [id number] 50mg Take 1 [facility] mg tablet 0-13 tablet by it[facility] o f 00:00: mouth in [place] 00 the Medical morning Branch and 1 tablet in the evening. mirabegron 2021-09 Yes [id number] 50mg Take 1 [facility] (MYRBETRIQ) 0-13 tablet by [facility]y of 50 mg 00:00: mouth in [place] tablet 00 the Medical morning. Branch topiramate 2021-09 Yes [id number] 75mg Take 3 [facility] 25 mg 0-13 tablets by [facility] of tablet 00:00: mouth in [place] 00 the Medical morning Branch and 3 tablets in the evening. losartan 50 2021-09 Yes [id number] 50mg Take 1 [facility] mg tablet 0-13 tablet by ity o f 00:00: mouth in [place] 00 the Medical morning Branch and 1 tablet in the evening. mirabegron 2021-09 Yes [id number] 50mg Take 1 [facility] (MYRBETRIQ) 0-13 tablet by [facility]y of 50 mg 00:00: mouth in [place] tablet 00 the Medical morning. Branch topiramate 2021-09 Yes [id number] 75mg Take 3 [facility] 25 mg 0-13 tablets by [facility] of tablet 00:00: mouth in [place] 00 the Medical morning Branch and 3 tablets in the evening. losartan 50 2021-09 Yes [id number] 50mg Take 1 [facility] mg tablet 0-13 tablet by [facility] o f 00:00: mouth in [place] 00 the Medical morning Branch and 1 tablet in the evening. mirabegron 2021-09 Yes [id number] 50mg Take 1 [facility] (MYRBETRIQ) 0-13 tablet by [facility]y of 50 mg 00:00: mouth in [place] tablet 00 the Medical morning. Branch topiramate 2021-09 Yes [id number] 75mg Take 3 [facility] 25 mg 0-13 tablets by [facility] of tablet 00:00: mouth in [place] 00 the Medical morning Branch and 3 tablets in the evening. losartan 50 2021-09 Yes [id number] 50mg Take 1 [facility] mg tablet 0-13 tablet by [facility] o f 00:00: mouth in [place] 00 the Medical morning Branch and 1 tablet in the evening. mirabegron 2021-09 Yes [id number] 50mg Take 1 [facility] (MYRBETRIQ) 0-13 tablet by [facility]y of 50 mg 00:00: mouth in [place] tablet 00 the Medical morning. Branch topiramate 2021-09 Yes [id number] 75mg Take 3 [facility] 25 mg 0-13 tablets by [facility] of tablet 00:00: mouth in [place] 00 the Medical morning Branch and 3 tablets in the evening. losartan 50 2021-09 Yes [id number] 50mg Take 1 [facility] mg tablet 0-13 tablet by [facility] o f 00:00: mouth in [place] 00 the Medical morning Branch and 1 tablet in the evening. mirabegron 2021-09 Yes [id number] 50mg Take 1 [facility] (MYRBETRIQ) 0-13 tablet by [facility]y of 50 mg 00:00: mouth in [place] tablet 00 the Medical morning. Branch topiramate 2021-09 Yes [id number] 75mg Take 3 [facility] 25 mg 0-13 tablets by [facility] of tablet 00:00: mouth in [place] 00 the Medical morning Branch and 3 tablets in the evening. losartan 50 2021-09 Yes [id number] 50mg Take 1 [facility] mg tablet 0-13 tablet by [facility] o f 00:00: mouth in [place] 00 the Medical morning Branch and 1 tablet in the evening. mirabegron 2021-09 Yes [id number] 50mg Take 1 [facility] (MYRBETRIQ) 0-13 tablet by [facility]y of 50 mg 00:00: mouth in [place] tablet 00 the Medical morning. Branch topiramate 2021-09 Yes [id number] 75mg Take 3 [facility] 25 mg 0-13 tablets by [facility] of tablet 00:00: mouth in [place] 00 the Medical morning Branch and 3 tablets in the evening. losartan 50 2021-09 Yes [id number] 50mg Take 1 [facility] mg tablet 0-13 tablet by [facility] o f 00:00: mouth in [place] 00 the Medical morning Branch and 1 tablet in the evening. mirabegron 2021-09 Yes [id number] 50mg Take 1 [facility] (MYRBETRIQ) 0-13 tablet by [facility]y of 50 mg 00:00: mouth in [place] tablet 00 the Medical morning. Branch topiramate 2021-09 Yes [id number] 75mg Take 3 [facility] 25 mg 0-13 tablets by [facility] of tablet 00:00: mouth in [place] 00 the Medical morning Branch and 3 tablets in the evening. losartan 50 2021-09 Yes [id number] 50mg Take 1 [facility] mg tablet 0-13 tablet by [facility] o f 00:00: mouth in [place] 00 the Medical morning Branch and 1 tablet in the evening. mirabegron 2021-09 Yes [id number] 50mg Take 1 [facility] (MYRBETRIQ) 0-13 tablet by [facility]y of 50 mg 00:00: mouth in [place] tablet 00 the Medical morning. Branch topiramate 2021-09 Yes [id number] 75mg Take 3 [facility] 25 mg 0-13 tablets by [facility] of tablet 00:00: mouth in [place] 00 the Medical morning Branch and 3 tablets in the evening. losartan 50 2021-09 Yes [id number] 50mg Take 1 [facility] mg tablet 0-13 tablet by [facility] o f 00:00: mouth in [place] 00 the Medical morning Branch and 1 tablet in the evening. topiramate 2021-09 Yes [id number] 75mg Take 3 [facility] 25 mg 0-13 tablets by [facility] of tablet 00:00: mouth in [place] 00 the Medical morning Branch and 3 tablets in the evening. losartan 50 2021-09 Yes [id number] 50mg Take 1 [facility] mg tablet 0-13 tablet by ity o f 00:00: mouth in [place] 00 the Medical morning Branch and 1 tablet in the evening. topiramate 2021-09 Yes [id number] 75mg Take 3 [facility] 25 mg 0-13 tablets by ity of tablet 00:00: mouth in [place] 00 the Medical morning Branch and 3 tablets in the evening. losartan 50 2021-09 Yes [id number] 50mg Take 1 [facility] mg tablet 0-13 tablet by ity o f 00:00: mouth in [place] 00 the Medical morning Branch and 1 tablet in the evening. topiramate 2021-09 Yes [id number] 75mg Take 3 [facility] 25 mg 0-13 tablets by ity of tablet 00:00: mouth in [place] 00 the Medical morning Branch and 3 tablets in the evening. losartan 50 2021-09 Yes [id number] 50mg Take 1 [facility] mg tablet 0-13 tablet by ity o f 00:00: mouth in [place] 00 the Medical morning Branch and 1 tablet in the evening. topiramate 2021-09 Yes [id number] 75mg Take 3 [facility] 25 mg 0-13 tablets by ity of tablet 00:00: mouth in [place] 00 the Medical morning Branch and 3 tablets in the evening. losartan 50 2021-09 Yes [id number] 50mg Take 1 [facility] mg tablet 0-13 tablet by ity o f 00:00: mouth in [place] 00 the Medical morning Branch and 1 tablet in the evening. topiramate 2021-09 Yes [id number] 75mg Take 3 [facility] 25 mg 0-13 tablets by ity of tablet 00:00: mouth in [place] 00 the Medical morning Branch and 3 tablets in the evening. losartan 50 2021-09 Yes [id number] 50mg Take 1 [facility] mg tablet 0-13 tablet by ity o f 00:00: mouth in [place] 00 the Medical morning Branch and 1 tablet in the evening. topiramate 2021-09 Yes [id number] 75mg Take 3 [facility] 25 mg 0-13 tablets by ity of tablet 00:00: mouth in [place] 00 the Medical morning Branch and 3 tablets in the evening. losartan 50 2021-09 Yes [id number] 50mg Take 1 [facility] mg tablet 0-13 tablet by ity o f 00:00: mouth in [place] 00 the Medical morning Branch and 1 tablet in the evening. topiramate 2021-09 Yes [id number] 75mg Take 3 [facility] 25 mg 0-13 tablets by ity of tablet 00:00: mouth in [place] 00 the Medical morning Branch and 3 tablets in the evening. losartan 50 2021-09 Yes [id number] 50mg Take 1 [facility] mg tablet 0-13 tablet by ity o f 00:00: mouth in [place] 00 the Medical morning Branch and 1 tablet in the evening. topiramate 2021-09 Yes [id number] 75mg Take 3 [facility] 25 mg 0-13 tablets by ity of tablet 00:00: mouth in [place] 00 the Medical morning Branch and 3 tablets in the evening. losartan 50 2021-09 Yes [id number] 50mg Take 1 [facility] mg tablet 0-13 tablet by ity o f 00:00: mouth in [place] 00 the Medical morning Branch and 1 tablet in the evening. topiramate 2021-09 Yes [id number] 75mg Take 3 [facility] 25 mg 0-13 tablets by ity of tablet 00:00: mouth in [place] [address] the Medical morning Branch and 3 tablets in the evening. losartan 50 2021-09 Yes [id number] 50mg Take 1 [facility] mg tablet 0-13 tablet by ity o f 00:00: mouth in [place] [address] the Medical morning Branch and 1 tablet in the evening. topiramate 2021-09 Yes [id number] 75mg Take 3 [facility] 25 mg 0-13 tablets by ity of tablet 00:00: mouth in [place] [address] the Medical morning Branch and 3 tablets in the evening. losartan 50 2021-09 Yes [id number] 50mg Take 1 [facility] mg tablet 0-13 tablet by ity o f 00:00: mouth in [place] 00 the Medical morning Branch and 1 tablet in the evening. topiramate 2021-09 Yes [id number] 75mg Take 3 [facility] 25 mg 0-13 tablets by ity of tablet 00:00: mouth in [place] [address] the Medical morning Branch and 3 tablets in the evening. losartan 50 2021-09 Yes [id number] 50mg Take 1 [facility] mg tablet 0-13 tablet by ity o f 00:00: mouth in [place] [address] the Medical morning Branch and 1 tablet in the evening. topiramate 2021-09 Yes [id number] 75mg Take 3 [facility] 25 mg 0-13 tablets by ity of tablet 00:00: mouth in [place] [address] the Medical morning Branch and 3 tablets in the evening. losartan 50 2021-09 Yes [id number] 50mg Take 1 [facility] mg tablet 0-13 tablet by ity o f 00:00: mouth in [place] 00 the Medical morning Branch and 1 tablet in the evening. topiramate 2021-09 Yes [id number] 75mg Take 3 [facility] 25 mg 0-13 tablets by ity of tablet 00:00: mouth in [place] 00 the Medical morning Branch and 3 tablets in the evening. losartan 50 2021-09 Yes [id number] 50mg Take 1 [facility] mg tablet 0-13 tablet by ity o f 00:00: mouth in [place] 00 the Medical morning Branch and 1 tablet in the evening. topiramate 2021-09 Yes [id number] 75mg Take 3 [facility] 25 mg 0-13 tablets by ity of tablet 00:00: mouth in [place] 00 the Medical morning Branch and 3 tablets in the evening. losartan 50 2021-09 Yes [id number] 50mg Take 1 [facility] mg tablet 0-13 tablet by ity o f 00:00: mouth in [place] [address] the Medical morning Branch and 1 tablet in the evening. topiramate 2021-09 Yes [id number] 75mg Take 3 [facility] 25 mg 0-13 tablets by ity of tablet 00:00: mouth in [place] [address] the Medical morning Branch and 3 tablets in the evening. losartan 50 2021-09 Yes [id number] 50mg Take 1 [facility] mg tablet 0-13 tablet by ity o f 00:00: mouth in [place] 00 the Medical morning Branch and 1 tablet in the evening. topiramate 2021-09 Yes [id number] 75mg Take 3 [facility] 25 mg 0-13 tablets by ity of tablet 00:00: mouth in [place] 00 the Medical morning Branch and 3 tablets in the evening. losartan 50 2021-09 Yes [id number] 50mg Take 1 [facility] mg tablet 0-13 tablet by ity o f 00:00: mouth in [place] 00 the Medical morning Branch and 1 tablet in the evening. topiramate 2021-09 Yes [id number] 75mg Take 3 [facility] 25 mg 0-13 tablets by ity of tablet 00:00: mouth in [place] [address] the Medical morning Branch and 3 tablets in the evening. losartan 50 2021-09 Yes [id number] 50mg Take 1 [facility] mg tablet 0-13 tablet by ity o f 00:00: mouth in [place] [address] the Medical morning Branch and 1 tablet in the evening. topiramate 2021- Yes [id number] 75mg Take 3 [facility] 25 mg 0-13 tablets by ity of tablet 00:00: mouth in [place] 00 the Medical morning Branch and 3 tablets in the evening. losartan 50 2021-09 Yes [id number] 50mg Take 1 [facility] mg tablet 0-13 tablet by ity o f 00:00: mouth in [place] 00 the Medical morning Branch and 1 tablet in the evening. topiramate 2021- Yes [id number] 75mg Take 3 [facility] 25 mg 0-13 tablets by ity of tablet 00:00: mouth in [place] 00 the Medical morning Branch and 3 tablets in the evening. losartan 50 2021-09 Yes [id number] 50mg Take 1 [facility] mg tablet 0-13 tablet by ity o f 00:00: mouth in [place] 00 the Medical morning Branch and 1 tablet in the evening. topiramate 2021-09 Yes [id number] 75mg Take 3 [facility] 25 mg 0-13 tablets by ity of tablet 00:00: mouth in [place] 00 the Medical morning Branch and 3 tablets in the evening. losartan 50 2021-09 Yes [id number] 50mg Take 1 [facility] mg tablet 0-13 tablet by ity o f 00:00: mouth in [place] 00 the Medical morning Branch and 1 tablet in the evening. topiramate 2021-09 Yes [id number] 75mg Take 3 [facility] 25 mg 0-13 tablets by ity of tablet 00:00: mouth in [place] 00 the Medical morning Branch and 3 tablets in the evening. losartan 50 2021-09 Yes [id number] 50mg Take 1 [facility] mg tablet 0-13 tablet by ity o f 00:00: mouth in [place] 00 the Medical morning Branch and 1 tablet in the evening. topiramate 2021-09 Yes [id number] 75mg Take 3 [facility] 25 mg 0-13 tablets by ity of tablet 00:00: mouth in [place] 00 the Medical morning Branch and 3 tablets in the evening. losartan 50 2021-09 Yes [id number] 50mg Take 1 [facility] mg tablet 0-13 tablet by ity o f 00:00: mouth in [place] 00 the Medical morning Branch and 1 tablet in the evening. topiramate 2021- Yes [id number] 75mg Take 3 [facility] 25 mg 0-13 tablets by ity of tablet 00:00: mouth in [place] 00 the Medical morning Branch and 3 tablets in the evening. losartan 50 2021-09 Yes [id number] 50mg Take 1 [facility] mg tablet 0-13 tablet by ity o f 00:00: mouth in [place] 00 the Medical morning Branch and 1 tablet in the evening. topiramate 2021-09 Yes [id number] 75mg Take 3 [facility] 25 mg 0-13 tablets by ity of tablet 00:00: mouth in [place] 00 the Medical morning Branch and 3 tablets in the evening. losartan 50 2021-09 Yes [id number] 50mg Take 1 [facility] mg tablet 0-13 tablet by ity o f 00:00: mouth in [place] 00 the Medical morning Branch and 1 tablet in the evening. topiramate 2021-09 Yes [id number] 75mg Take 3 [facility] 25 mg 0-13 tablets by ity of tablet 00:00: mouth in [place] 00 the Medical morning Branch and 3 tablets in the evening. losartan 50 2021-09 Yes [id number] 50mg Take 1 [facility] mg tablet 0-13 tablet by ity o f 00:00: mouth in [place] 00 the Medical morning Branch and 1 tablet in the evening. topiramate 2021-09 Yes [id number] 75mg Take 3 [facility] 25 mg 0-13 tablets by ity of tablet 00:00: mouth in [place] [address] the Medical morning Branch and 3 tablets in the evening. losartan 50 2021-09 Yes [id number] 50mg Take 1 [facility] mg tablet 0-13 tablet by ity o f 00:00: mouth in [place] 00 the Medical morning Branch and 1 tablet in the evening. topiramate 2021-09 Yes [id number] 75mg Take 3 [facility] 25 mg 0-13 tablets by ity of tablet 00:00: mouth in [place] 00 the Medical morning Branch and 3 tablets in the evening. losartan 50 2021-09 Yes [id number] 50mg Take 1 [facility] mg tablet 0-13 tablet by ity o f 00:00: mouth in [place] 00 the Medical morning Branch and 1 tablet in the evening. topiramate 2021-09 Yes [id number] 75mg Take 3 [facility] 25 mg 0-13 tablets by ity of tablet 00:00: mouth in [place] [address] the Medical morning Branch and 3 tablets in the evening. losartan 50 2021-09 Yes [id number] 50mg Take 1 [facility] mg tablet 0-13 tablet by ity o f 00:00: mouth in [place] 00 the Medical morning Branch and 1 tablet in the evening. topiramate 2022-1 Yes [id number] 75mg Take 3 [facility] 25 mg 0-13 tablets by ity of tablet 00:00: mouth in [place] 00 the Medical morning Branch and 3 tablets in the evening. mirabegron 2021-09- No [id number] 50mg Take 1 [facility] (MYRBETRIQ) 0-11-17 tablet by it y of 50 mg 00:00: 00:00 mouth in [place] tablet 00 :00 the Medical morning. Branch mirabegron 2021-09- No [id number] 50mg Take 1 [facility] (MYRBETRIQ) 011-17 tablet by it y of 50 mg 00:00: 00:00 mouth in [place] tablet 00 :00 the Medical morning. Branch mirabegron 2021-09- No [id number] 50mg Take 1 [facility] (MYRBETRIQ) 011-17 tablet by it y of 50 mg 00:00: 00:00 mouth in [place] tablet 00 :00 the Medical morning. Branch semaglutide 2021-09- No [id number] Inject [facility] (OZEMPIC) 0-07 0.25 mg ity of 0.25 mg or 00:00: 00:00 under the [place] 0.5 mg(2 00 :00 skin Medical mg/1.5 mL) weekly. Branch PnIj semaglutide 2021-09- No [id number] Inject [facility] (OZEMPIC) 0- 0.25 mg ity of 0.25 mg or 00:00: 00:00 under the [place] 0.5 mg(2 00 :00 skin Medical mg/1.5 mL) weekly. Branch PnIj semaglutide 2021-09- No [id number] Inject [facility] (OZEMPIC) 0-07 0.25 mg ity of 0.25 mg or 00:00: 00:00 under the [place] 0.5 mg(2 00 :00 skin Medical mg/1.5 mL) weekly. Branch PnIj semaglutide 2021-09- No [id number] Inject [facility] (OZEMPIC) 0-07 0.25 mg ity of 0.25 mg or 00:00: 00:00 under the [place] 0.5 mg(2 00 :00 skin Medical mg/1.5 mL) weekly. [facility] [place] semaglutide 2021-09- No [id number] Inject [facility] (OZEMPIC) 0 02-07 0.25 mg ity of 0.25 mg or 00:00: 00:00 under the [place] 0.5 mg(2 00 :00 skin Medical mg/1.5 mL) weekly. [facility] [place] semaglutide 2021-09- No [id number] Inject [facility] (OZEMPIC) 0-07 0.25 mg ity of 0.25 mg or 00:00: 00:00 under the [place] 0.5 mg(2 00 :00 skin Medical mg/1.5 mL) weekly. [facility] [place] semaglutide 2021-09- No [id number] Inject [facility] (OZEMPIC) 0- 0.25 mg ity of 0.25 mg or 00:00: 00:00 under the [place] 0.5 mg(2 00 :00 skin Medical mg/1.5 mL) weekly. [facility] [place] semaglutide 2021-09- No [id number] Inject [facility] (OZEMPIC) 0- 0.25 mg ity of 0.25 mg or 00:00: 00:00 under the [place] 0.5 mg(2 00 :00 skin Medical mg/1.5 mL) weekly. [facility] [place] semaglutide 2021-09- No [id number] Inject [facility] (OZEMPIC) 0-07 0.25 mg ity of 0.25 mg or 00:00: 00:00 under the [place] 0.5 mg(2 00 :00 skin Medical mg/1.5 mL) weekly. [facility] [place] semaglutide 2021-09- No [id number] Inject [facility] (OZEMPIC) 0-07 0.25 mg ity of 0.25 mg or 00:00: 00:00 under the [place] 0.5 mg(2 00 :00 skin Medical mg/1.5 mL) weekly. [facility] [place] semaglutide 2021-09- No [id number] Inject [facility] (OZEMPIC) 0-07 0.25 mg ity of 0.25 mg or 00:00: 00:00 under the [place] 0.5 mg(2 00 :00 skin Medical mg/1.5 mL) weekly. [facility] semaglutide 2021-09- No [id number] Inject [facility] (OZEMPIC) 011-02 0.25 mg ity of 0.25 mg or 00:00: 00:00 under the [place] 0.5 mg(2 00 :00 skin Medical mg/1.5 mL) weekly. [facility] semaglutide 2021-09- No [id number] Inject [facility] (OZEMPIC) 011-02 0.25 mg ity of 0.25 mg or 00:00: 00:00 under the [place] 0.5 mg(2 00 :00 skin Medical mg/1.5 mL) weekly. [facility] semaglutide 2021-09- No [id number] Inject [facility] (OZEMPIC) 011-02 0.25 mg ity of 0.25 mg or 00:00: 00:00 under the [place] 0.5 mg(2 00 :00 skin Medical mg/1.5 mL) weekly. [facility] busPIRone 2021-09- No [id number] 20mg Take 2 U nivers 10 mg 10-12 tablets by ity of tablet 00:00: 00:00 mouth in [place] 00 :00 the Medical morning Branch and 2 tablets in the evening. diltiazem 2021-09- No [id number] 120mg Take 1 [facility] 120 mg 24 07-27 capsule by ity of hr capsule 00:00: 00:00 mouth in [place] 00 :00 the Medical morning Branch and 1 capsule in the evening. levothyroxi 2021-09- No [id number] 50ug Take 1 [facility] ne 50 mcg 07-27 tablet by ity of tablet 00:00: 00:00 mouth [place] 00 :00 every Medical morning. Chromo metformin 2021-09- No [id number] 500mg Take 1 [facility] ER 500 mg 07-27 tablet by ity of 24 hr 00:00: 00:00 mouth [place] tablet 00 :00 daily with Medical breakfast. Branch STOP REGULAR METFORMIN. pantoprazol 2021-09- No [id number] 40mg Take 1 [facility] e 40 mg EC 07-27 tablet by ity of tablet 00:00: 00:00 mouth in [place] 00 :00 the Medical morning. Branch pregabalin 2021-09- No [id number] 150mg Take 1 [facility] 150 mg 07-27 capsule by ity of capsule 00:00: 00:00 mouth in [place] 00 :00 the Medical morning Branch and 1 capsule at noon and 1 capsule in the evening. rosuvastati 2021-09- No [id number] 10mg Take 1 [facility] n 10 mg 07-27 tablet by ity of tablet 00:00: 00:00 mouth at [place] 00 :00 bedtime. Medical Branch SUMAtriptan 2021-09- No [id number] 50mg Take 1 [facility] 50 mg 07-27 tablet by ity of tablet 00:00: 00:00 mouth as [place] 00 :00 needed for Medical Migraine. Branch diltiazem 2021-09- No [id number] 120mg Take 1 [facility] 120 mg 24 07-27 capsule by ity of hr capsule 00:00: 00:00 mouth in [facility] 00 :00 the Medical morning Branch and 1 capsule in the evening. levothyroxi 2021-09- No [id number] 50ug Take 1 [facility] ne 50 mcg 07-27 tablet by ity of tablet 00:00: 00:00 mouth [place] 00 :00 every Medical morning. Branch metformin 2021-09- No [id number] 500mg Take 1 [facility] ER 500 mg 07-27 tablet by ity of 24 hr 00:00: 00:00 mouth [place] tablet 00 :00 daily with Medical breakfast. Branch STOP REGULAR METFORMIN. pantoprazol 2021-09- No [id number] 40mg Take 1 [facility] e 40 mg EC 07-27 tablet by ity of tablet 00:00: 00:00 mouth in [place] 00 :00 the Medical morning. Branch pregabalin 2021-09- No [id number] 150mg Take 1 [facility] 150 mg 07-27 capsule by ity of capsule 00:00: 00:00 mouth in [place] 00 :00 the Medical morning Branch and 1 capsule at noon and 1 capsule in the evening. rosuvastati 2021-09- No [id number] 10mg Take 1 [facility] n 10 mg 0-13 11-01 tablet by ity of tablet 00:00: 00:00 mouth at [place] 00 :00 bedtime. Medical Branch SUMAtriptan 2021-09- No [id number] 50mg Take 1 [facility] 50 mg 0-13 11-01 tablet by ity of tablet 00:00: 00:00 mouth as [place] 00 :00 needed for Medical Migraine. Branch SUMAtriptan Yes [id number] 50mg Take 1 [facility] 50 mg 9-30 tablet by ity of tablet 00:00: mouth as [place] 00 needed for Medical Migraine. Branch SUMAtriptan Yes [id number] 50mg Take 1 [facility] 50 mg 9-30 tablet by ity of tablet 00:00: mouth as [place] 00 needed for Medical Migraine. Branch SUMAtriptan Yes [id number] 50mg Take 1 [facility] 50 mg 9-30 tablet by ity of tablet 00:00: mouth as [place] 00 needed for Medical Migraine. Branch SUMAtriptan Yes [id number] 50mg Take 1 [facility] 50 mg 9-30 tablet by ity of tablet 00:00: mouth as [place] 00 needed for Medical Migraine. Branch SUMAtriptan Yes [id number] 50mg Take 1 [facility] 50 mg 9-30 tablet by ity of tablet 00:00: mouth as [place] 00 needed for Medical Migraine. Branch SUMAtriptan 2021- No [id number] 50mg Take 1 [facility] 50 mg 9-30 10-13 tablet by ity of tablet 00:00: 00:00 mouth as [place] 00 :00 needed for Medical Migraine. Branch FOLIC ACID Yes Take by [facility] ORAL 06-17 mouth ity of 10:41: daily. [place] 15 Medical Branch MULTIVIT Yes [facility] &[facility]/F 06-17 mouth. ity of ERROUS FUM 10:41: [place] (MULTI 15 Medical VITAMIN Branch ORAL) METHYLCELLU Yes [facility] LOSE (FIBER 06-17 ity of THERAPY 10:41: [place] MIS) 15 Medical Branch DOCUSATE 2022-0 Yes Take by Univer s SODIUM 9-22 [...] Branch unit) tablet CRANBERRY Yes Take by [facility] FRUIT - mouth ity of EXTRACT [...] Uni vers 06-17 mouth. ity of 10:41: [place] 15 Medical Branch FOLIC ACID Yes Take by Univ ers ORAL - mouth ity of 10:41: daily. [place] 15 Medical Branch MULTIVIT Yes Take by [facility] &MINERALS/F - mouth. ity of ERROUS FUM 10:41: [place] (MULTI 15 Medical VITAMIN Branch ORAL) METHYLCELLU Yes [facility] (FIB[facility] 06-17 ity of THERAPY 10:41: [place] MISC) 15 Medical Branch DOCUSATE Yes Take by [facility] SODIUM - mouth. ity of (COLACE [...] Branch unit) tablet CRANBERRY Yes Take by [employer] rs FRUIT 9-22 mouth ity of EXTRACT [...] Uni vers - mouth. ity of 10:41: [place] [address] Medical Branch FOLIC ACID Yes Take by Univ ers ORAL - mouth ity of 10:41: daily. [place] [address] Medical Branch MULTIVIT Yes Take by Univer [...] ORAL - mouth ity of 10:41: daily. [place] [address] Medical Branch DOCOSAHEXAN Yes 1000mg Take 1,000 [facility] OIC 9-22 mg by ity of ACID/EPA 10:41: mouth [place] (FISH OIL 15 daily. Medical ORAL) Branch BIOTIN ORAL Yes Take by Uni vers -22 mouth. ity of 10:41: [place] [address] Medical Branch FOLIC ACID Yes Take by Univ ers ORAL - mouth ity of 10:41: daily. [place] 15 Medical Branch MULTIVIT Yes Take by Univer s &MINERALS/F 9-22 mouth. ity of ERROUS FUM 10:41: [place] (MULTI 15 Medical VITAMIN Branch ORAL) METHYLCELLU 0 Yes [facility]iver s LOSE (FIBER 9-22 ity of THERAPY 10:41: [facility]) Medical Branch DOCUSATE Yes Take by Unive rs SODIUM -22 mouth. ity of (COLACE 10:41: [...] ORAL 9-22 mouth ity of 10:41: daily. [place] [address] Medical Branch DOCOSAHEXAN Yes 1000mg Take 1,000 [facility] OIC 9-22 mg by ity of ACID/EPA 10:41: mouth [place] (FISH OIL 15 daily. Medical ORAL) Branch BIOTIN ORAL Yes Take by Uni vers 9- mouth. ity of 10:41: [place] [address] Medical Branch FOLIC ACID Yes Take by Univ ers ORAL - mouth ity of 10:41: daily. [place] [address] Medical Branch MULTIVIT Yes Take by Univer s &MINERALS/F 9-22 mouth. ity of ERROUS FUM 10:41: [place] (MULTI 15 Medical VITAMIN Branch ORAL) METHYLCELLU 0 Yes Univer s LOSE (FIBER 9-22 ity of THERAPY 10:41: [facility]) Medical Branch DOCUSATE 0 Yes Take by [...] Uni vers 06-17 mouth. ity of 10:41: [place] [address] Medical Branch FOLIC ACID Yes Take by Univ ers ORAL 06-17 mouth ity of 10:41: daily. [place] [address] Medical Branch MULTIVIT Yes Take by Univer [...] -22 mouth ity of 10:41: daily. [place] Medical [...] LOSE (FIBER 9- ity of THERAPY 10:41: [place] MISC) 15 [...] LOSE (FIBER 9-22 ity of THERAPY 10:41: [facility]) 15 Medical Branch DOCUSATE Yes [facility] SODIUM - mouth. ity of (COLACE 10:41: [place] ORAL) [...] Branch unit) tablet CRANBERRY Yes Take by [facility] rs FRUIT 06-17 mouth ity of [...] Uni vers 06-17 mouth. ity of 10:41: [place] [address] Medical Branch FOLIC ACID Yes Take by Univ ers ORAL - mouth ity of 10:41: daily. [place] [address] Medical Branch MULTIVIT Yes Take [facility] &MIN[facility]ALS/F - mouth. ity of ERROUS FUM 10:41: [place] (MULTI 15 Medical VITAMIN Branch ORAL) METHYLCELLU Yes Univer s LOSE (FIBER -22 ity of THERAPY 10:41: [facility]) 15 Medical Branch DOCUSATE Yes Take by [facility] SODIUM -22 mouth. ity of (COLACE [...] daily. Medical (1,000 Branch unit) tablet CRANBERRY 2022-0 Yes Take by Unive rs FRUIT 06-17 mouth ity of EXTRACT 10:41: daily. [place] (CRANBERRY 15 Medical ORAL) Branch CALCIUM Yes Take by [facility] ORAL - mouth ity of 10:41: daily. [place] [address] Medical Branch DOCOSAHEXAN Yes 1000mg Take 1,000 [facility] OIC 9-22 mg by ity of ACID/EPA 10:41: mouth [place] (FISH OIL 15 daily. Medical ORAL) Branch BIOTIN ORAL Yes Take by Uni vers - mouth. ity of 10:41: [place] [address] Medical Branch FOLIC ACID Yes Take by Univ ers ORAL 06-17 mouth ity of 10:41: daily. [place] [address] Medical Branch MULTIVIT Yes Take by Univer [...] ORAL - mouth ity of 10:41: daily. [place] [address] Medical Branch DOCOSAHEXAN Yes 1000mg Take 1,000 [...] LOSE (FIBER 9-22 ity of THERAPY 10:41: [facility]) 15 Medical Branch DOCUSATE Yes Take by [facility] SODIUM -22 mouth. ity of (COLACE [...] Branch unit) tablet CRANBERRY Yes Take by [facility] rs FRUIT - mouth ity of [...] 15 Medical Branch MULTIVIT Yes Take by [facility] &MINERALS/F -22 mouth. ity of ERROUS FUM 10:41: [place] (MULTI 15 Medical VITAMIN Branch ORAL) METHYLCELLU 0 Yes Univer s LOSE (FIBER 9-22 ity of THERAPY 10:41: [facility]) 15 Medical Branch DOCUSATE Yes Take by [facility] s SODIUM 9-22 mouth. ity of (COLACE [...] Uni vers 06-17 mouth. ity of 10:41: [place] [address] Medical Branch FOLIC ACID Yes Take by Univ ers ORAL 06-17 mouth ity of 10:41: daily. [place] [address] Medical Branch MULTIVIT Yes Take by Univer s &MINERALS/F 06-17 mouth. ity of ERROUS FUM 10:41: [place] (MULTI 15 Medical VITAMIN Branch ORAL) METHYLCELLU Yes Univer s LOSE (FIBER 06-17 ity of THERAPY 10:41: [facility]) Medical Branch DOCUSATE Yes Take by Univer [...] Uni vers 06-17 mouth. ity of 10:41: [place] Medical Branch FOLIC ACID Yes Take by Univ ers ORAL 06-17 mouth ity of 10:41: daily. [place] 15 Medical Branch MULTIVIT Yes Take by [facility] s &MINERALS/F 06-17 mouth. ity of ERROUS FUM 10:41: [place] (MULTI 15 Medical VITAMIN Branch ORAL) METHYLCELLU Yes [facility] LOSE (FIBER 06-17 ity [...] Uni vers - mouth. ity of 10:41: [place] [address] Medical Branch FOLIC ACID Yes Take by Univ ers ORAL - mouth ity of 10:41: daily. [place] [address] Medical Branch MULTIVIT Yes Take by [facility] s &MINERALS/F - mouth. ity of ERROUS FUM 10:41: [place] (MULTI 15 Medical VITAMIN Branch ORAL) METHYLCELLU 2021-0 Yes Univer s LOSE (FIBER 9-22 ity of THERAPY 10:41: [facility]) 15 Medical Branch vitamin C 0 Yes [...] Uni vers - mouth. ity of 10:41: [place] [address] Medical Branch FOLIC ACID 0 Yes Take by Univ ers ORAL - mouth ity of 10:41: daily. [place] [address] Medical Branch MULTIVIT Yes Take by Univer s &MINERALS/F - mouth. ity of ERROUS FUM 10:41: [place] (MULTI 15 Medical VITAMIN Branch ORAL) METHYLCELLU 2021-0 Yes Univer s LOSE (FIBER 9-22 ity of THERAPY 10:41: [facility]) Medical Branch vitamin C 0 Yes 1000mg [...] 10:41: daily. [place] 15 Medical Branch DOCOSAHEXAN 0 Yes 1000mg [...] (FIBER 9- ity of THERAPY 10:41: [place] [address] Medical Branch vitamin C Yes 1000mg Take [...] ORAL 9- mouth ity of 10:41: daily. [place] [address] Medical Branch DOCOSAHEXAN Yes 1000mg Take 1,000 [facility] OIC 9-22 mg by ity of ACID/EPA 10:41: mouth [place] (FISH OIL 15 daily. Medical ORAL) Branch BIOTIN ORAL 0 Yes Take by Uni vers 9-22 mouth. ity of 10:41: [place] [address] Medical Branch FOLIC ACID 0 Yes Take by Univ ers ORAL 9-22 mouth ity of 10:41: daily. [place] [address] Medical Branch MULTIVIT 0 Yes Take by Univer s &MINERALS/F 9-22 mouth. ity of ERROUS FUM 10:41: [place] (MULTI 15 Medical VITAMIN Branch ORAL) METHYLCELLU 2021-0 Yes Univer s LOSE (FIBER 9-22 ity of THERAPY 10:41: [facility]) 15 Medical Branch vitamin C Yes 1000mg [...] ORAL - mouth ity of 10:41: daily. [place] [address] Medical Branch DOCOSAHEXAN Yes 1000mg Take 1,000 [facility] OIC 9-22 mg by ity of ACID/EPA 10:41: mouth [place] (FISH OIL 15 daily. Medical ORAL) Branch BIOTIN ORAL Yes Take by Uni vers 06-17 mouth. ity of 10:41: [place] [address] Medical Branch FOLIC ACID Yes Take by Univ ers ORAL 06-17 mouth ity of 10:41: daily. [place] [address] Medical Branch MULTIVIT Yes Take by Univer s &MINERALS/F 06-17 mouth. ity of ERROUS FUM 10:41: [place] (MULTI 15 Medical VITAMIN Branch ORAL) METHYLCELLU 0 Yes Univer s LOSE (FIBER - ity of THERAPY 10:41: [facility]) 15 Medical Branch vitamin C Yes 1000mg [...] LOSE (FIBER - ity of THERAPY 10:41: [facility]) Medical Branch vitamin C Yes 1000mg Take [...] LOSE (FIBER 9- ity of THERAPY 10:41: [facility]) 15 Medical Branch vitamin C Yes 1000mg [...] ORAL 06-17 mouth ity of 10:41: daily. [place] [address] Medical Branch DOCOSAHEXAN Yes 1000mg Take 1,000 [facility] OIC 9-22 mg by ity of ACID/EPA 10:41: mouth [place] (FISH OIL 15 daily. Medical ORAL) Branch BIOTIN ORAL Yes Take by Uni vers 06-17 mouth. ity of 10:41: [place] [address] Medical Branch FOLIC ACID Yes Take by Uni vers ORAL 06-17 mouth ity of 10:41: daily. [place] [address] Medical Branch MULTIVIT Yes Take by Univer s &MINERALS/F 06-17 mouth. ity of ERROUS FUM 10:41: [place] (MULTI 15 Medical VITAMIN Branch ORAL) METHYLCELLU Yes Univer s LOSE (FIBER 06-17 ity of THERAPY 10:41: [facility]) 15 Medical Branch vitamin C Yes 1000mg [...] LOSE (FIBER 9-22 ity of THERAPY 10:41: [facility]) 15 Medical Branch vitamin C Yes 1000mg [...] ORAL - mouth ity of 10:41: daily. [place] [address] Medical Branch MULTIVIT 0 Yes Take by Univer s &MINERALS/F - mouth. ity of ERROUS FUM 10:41: [place] (MULTI 15 Medical VITAMIN Branch ORAL) METHYLCELLU 0 Yes Univer s LOSE (FIBER 9-22 ity of THERAPY 10:41: [facility]) 15 Medical Branch vitamin C 0 Yes [...] Uni vers 06-17 mouth. ity of 10:41: [place] [address] Medical Branch FOLIC ACID Yes Take by Univ ers ORAL 06-17 mouth ity of 10:41: daily. [place] [address] Medical Branch MULTIVIT Yes Take by Univer s &MINERALS/F 06-17 mouth. ity of ERROUS FUM 10:41: [place] (MULTI 15 Medical VITAMIN Branch ORAL) METHYLCELLU Yes Univer s LOSE (FIBER 06-17 ity of THERAPY 10:41: [facility]) Medical Branch vitamin C Yes 1000mg Take [...] Uni vers 06-17 mouth. ity of 10:41: [place] 15 Medical Branch FOLIC ACID 0 Yes Take by Univ ers ORAL - mouth ity of 10:41: daily. [place] 15 Medical Branch MULTIVIT 0 Yes Take by Univer s &MINERALS/F 06-17 mouth. ity of ERROUS FUM 10:41: [place] (MULTI 15 Medical VITAMIN Branch ORAL) METHYLCELLU 0 Yes Univer s LOSE (FIBER 06-17 ity of THERAPY 10:41: [facility]) 15 Medical Branch vitamin C 0 Yes [...] Uni vers - mouth. ity of 10:41: [place] [address] Medical Branch FOLIC ACID 0 Yes Take by Univ ers ORAL - mouth ity of 10:41: daily. [place] 15 Medical Branch MULTIVIT 0 Yes Take by Univer s &MINERALS/F - mouth. ity of ERROUS FUM 10:41: [place] (MULTI 15 Medical VITAMIN Branch ORAL) METHYLCELLU 0 Yes Univer s LOSE (FIBER 9-22 ity of THERAPY 10:41: [facility]) Medical Branch vitamin C 0 Yes 1000mg [...] ORAL 06-17 mouth ity of 10:41: daily. [place] [address] Medical Branch DOCOSAHEXAN Yes 1000mg Take 1,000 [facility] OIC 9-22 mg by ity of ACID/EPA 10:41: mouth [place] (FISH OIL 15 daily. Medical ORAL) Branch BIOTIN ORAL Yes Take by Uni vers 06-17 mouth. ity of 10:41: [place] [address] Medical Branch FOLIC ACID Yes Take by Univ ers ORAL 06-17 mouth ity of 10:41: daily. [place] [address] Medical Branch MULTIVIT Yes Take by Univer s &MINERALS/F 06-17 mouth. ity of ERROUS FUM 10:41: [place] (MULTI 15 Medical VITAMIN Branch ORAL) METHYLCELLU Yes Univer s LOSE (FIBER 06-17 ity of THERAPY 10:41: [facility]) Medical Branch vitamin C Yes 1000mg Take [...] ORAL - mouth ity of 10:41: daily. [place] [address] Medical Branch DOCOSAHEXAN Yes 1000mg Take 1,000 [facility] OIC 9-22 mg by ity of ACID/EPA 10:41: mouth [place] (FISH OIL 15 daily. Medical ORAL) Branch BIOTIN ORAL Yes Take by Uni vers 06-17 mouth. ity of 10:41: [place] [address] Medical Branch FOLIC ACID 0 Yes Take by Univ ers ORAL - mouth ity of 10:41: daily. [place] [address] Medical Branch MULTIVIT 0 Yes Take by Univer s &MINERALS/F 06-17 mouth. ity of ERROUS FUM 10:41: [place] (MULTI 15 Medical VITAMIN Branch ORAL) METHYLCELLU 0 Yes Univer s LOSE (FIBER - ity of THERAPY 10:41: [facility]) 15 Medical Branch vitamin C 0 Yes 1000mg Take 1,000 Univers with derrell 9-22 mg by ity of hips 1,000 10:41: mouth [place] mg tablet 15 daily. Medical Branch cholecalcif 0 Yes 1000U Take 1,000 Univers edmar, 9-22 Units by ity of vitamin D3, 10:41: mouth [place] 25 mcg 15 daily. Medical (1,000 Branch unit) tablet CRANBERRY Yes Take by [facility] rs FRUIT 06-17 mouth ity of [...] Uni vers 06-17 mouth. ity of 10:41: [place] [address] Medical Branch FOLIC ACID Yes Take by [facility] ers ORAL - mouth ity of 10:41: daily. [place] [address] Medical Branch MULTIVIT 0 Yes Take by Univer s &MINERALS/F - mouth. ity of ERROUS FUM 10:41: [place] (MULTI 15 Medical VITAMIN Branch ORAL) METHYLCELLU 2021-0 Yes Univer s LOSE (FIBER 9-22 ity of THERAPY 10:41: [facility]) Medical Branch vitamin C 0 Yes 1000mg [...] Uni vers 06-17 mouth. ity of 10:41: [place] [address] Medical Branch FOLIC ACID Yes Take by Univ ers ORAL 06-17 mouth ity of 10:41: daily. [place] [address] Medical Branch MULTIVIT [facility] 06-17 mouth. ity of ERROUS FUM 10:41: [place] (MULTI 15 Medical VITAMIN Branch ORAL) [facility]LLU [facility] ity of THERAPY 10:41: [facility]) Medical Branch vitamin C Yes 1000mg Take 1,000 [facility] with derrell 9-22 mg by ity of hips 1,000 10:41: mouth [place] mg tablet 15 daily. Medical Branch cholecalcif Yes 1000U Take 1,000 [facility] edmar, 9-22 Units by ity of vitamin D3, 10:41: mouth [place] 25 mcg 15 daily. Medical (1,000 Branch unit) tablet CRANBERRY Yes [facility] - mouth ity [...] Uni vers 06-17 mouth. ity of 10:41: [place] [address] Medical Branch FOLIC ACID Yes Take by Univ ers ORAL - mouth ity of 10:41: daily. [place] [address] Medical Branch MULTIVIT 0 Yes Take by Univer s &MINERALS/F - mouth. ity of ERROUS FUM 10:41: [place] (MULTI 15 Medical VITAMIN Branch ORAL) METHYLCELLU 0 Yes Univer s LOSE (FIBER - ity of THERAPY 10:41: [facility]) 15 Medical Branch vitamin C Yes 1000mg [...] ORAL - mouth ity of 10:41: daily. [place] [address] Medical Branch DOCOSAHEXAN Yes 1000mg Take 1,000 [facility] OIC 9-22 mg by ity of ACID/EPA 10:41: mouth [place] (FISH OIL 15 daily. Medical ORAL) Branch BIOTIN ORAL Yes Take by Uni vers - mouth. ity of 10:41: [place] [address] Medical Branch FOLIC ACID Yes Take by Univ ers ORAL - mouth ity of 10:41: daily. [place] [address] Medical Branch MULTIVIT Yes Take by Univer s &MINERALS/F - mouth. ity of ERROUS FUM 10:41: [place] (MULTI 15 Medical VITAMIN Branch ORAL) METHYLCELLU 0 Yes Univer s LOSE (FIBER 9-22 ity of THERAPY 10:41: [facility]) Medical Branch vitamin C 0 Yes 1000mg [...] ORAL - mouth ity of 10:41: daily. [place] [address] Medical Branch DOCOSAHEXAN Yes 1000mg Take 1,000 [facility] OIC 9-22 mg by ity of ACID/EPA 10:41: mouth [place] (FISH OIL 15 daily. Medical ORAL) Branch BIOTIN ORAL Yes Take by Uni vers 06-17 mouth. ity of 10:41: [place] [address] Medical Branch FOLIC ACID Yes Take by Univ ers ORAL 06-17 mouth ity of 10:41: daily. [place] [address] Medical Branch MULTIVIT Yes Take by Univer s &MINERALS/F 06-17 mouth. ity of ERROUS FUM 10:41: [place] (MULTI 15 Medical VITAMIN Branch ORAL) [facility]U [facility] ity of THERAPY 10:41: [facility]) Medical Branch vitamin C Yes 1000mg Take [...] ORAL - mouth ity of 10:41: daily. [place] [address] Medical Branch DOCOSAHEXAN Yes 1000mg Take 1,000 [facility] OIC 9-22 mg by ity of ACID/EPA 10:41: mouth [place] (FISH OIL 15 daily. Medical ORAL) Branch BIOTIN ORAL Yes Take by Uni vers 06-17 mouth. ity of 10:41: [place] [address] Medical Branch FOLIC ACID Yes Take by Univ ers ORAL - mouth ity of 10:41: daily. [place] [address] Medical Branch MULTIVIT 2022-0 Yes Take by Univer s &MINERALS/F - mouth. ity of ERROUS FUM 10:41: [place] (MULTI 15 Medical VITAMIN Branch ORAL) METHYLCELLU 2021-0 Yes Univer s LOSE (FIBER - ity of THERAPY 10:41: [facility]) 15 Medical Branch vitamin C 0 Yes [...] 10:41: daily. [place] 15 Medical Branch DOCOSAHEXAN 0 Yes 1000mg Take 1,000 [facility] OIC 9-22 mg by ity of ACID/EPA 10:41: mouth [place] (FISH OIL 15 daily. Medical ORAL) Branch BIOTIN ORAL Yes Take by Uni vers - mouth. ity of 10:41: [place] [address] Medical Branch FOLIC ACID 0 Yes Take by Univ ers ORAL - mouth ity of 10:41: daily. [place] [address] Medical Branch MULTIVIT 0 Yes Take by Univer s &MINERALS/F - mouth. ity of ERROUS FUM 10:41: [place] (MULTI 15 Medical VITAMIN Branch ORAL) METHYLCELLU 2021-0 Yes Univer s LOSE (FIBER 9-22 ity of THERAPY 10:41: [facility]) Medical Branch vitamin C 0 Yes 1000mg Take 1,000 [facility] with derrell 9-22 mg by ity of hips 1,000 10:41: mouth [place] mg tablet 15 daily. Medical Branch cholecalcif 2021-0 Yes 1000U Take 1,000 [facility] edmar, 9-22 Units by ity of vitamin D3, 10:41: mouth [place] 25 mcg 15 daily. Medical (1,000 Branch unit) tablet CRANBERRY 2021-0 Yes Take by Unive rs FRUIT - mouth ity of EXTRACT 10:41: daily. [place] (CRANBERRY 15 Medical ORAL) Branch CALCIUM Yes Take by Univers ORAL 9- mouth ity of 10:41: daily. [place] [address] Medical Branch DOCOSAHEXAN Yes 1000mg Take 1,000 [facility] OIC 9-22 mg by ity of ACID/EPA 10:41: mouth [place] (FISH OIL 15 daily. Medical ORAL) Branch BIOTIN ORAL Yes Take by Uni vers - mouth. ity of 10:41: [place] [address] Medical Branch FOLIC ACID Yes Take by Univ ers ORAL - mouth ity of 10:41: daily. [place] [address] Medical Branch MULTIVIT Yes Take by Univer s &MINERALS/F 06-17 mouth. ity of ERROUS FUM 10:41: [place] (MULTI 15 Medical VITAMIN Branch ORAL) [facility]YL[facility]LLU [facility] ity of THERAPY 10:41: [facility]) Medical Branch vitamin C Yes 1000mg Take [...] ORAL 9- mouth ity of 10:41: daily. [place] [address] Medical Branch DOCOSAHEXAN Yes 1000mg Take 1,000 [facility] OIC 9-22 mg by ity of ACID/EPA 10:41: mouth [place] (FISH OIL 15 daily. Medical ORAL) Branch BIOTIN ORAL Yes Take by Uni vers - mouth. ity of 10:41: [place] [address] Medical Branch FOLIC ACID Yes Take by Univ ers ORAL - mouth ity of 10:41: daily. [place] [address] Medical Branch MULTIVIT Yes Take by Univer s &MINERALS/F - mouth. ity of ERROUS FUM 10:41: [place] (MULTI 15 Medical VITAMIN Branch ORAL) METHYLCELLU 2021-0 Yes Univer s LOSE (FIBER -22 ity of THERAPY 10:41: [facility]) 15 Medical Branch vitamin C 0 Yes [...] Uni vers 06-17 mouth. ity of 10:41: [place] [address] Medical Branch FOLIC ACID 0 Yes Take by Univ ers ORAL - mouth ity of 10:41: daily. [place] [address] Medical Branch MULTIVIT Yes Take by Univer s &MINERALS/F - mouth. ity of ERROUS FUM 10:41: [place] (MULTI 15 Medical VITAMIN Branch ORAL) METHYLCELLU 2021-0 Yes Univer s LOSE (FIBER - ity of THERAPY 10:41: [facility]) Medical Branch vitamin C 0 Yes 1000mg [...] CALCIUM 0 Yes Take by Univers ORAL 9- mouth ity of 10:41: daily. [place] Medical Branch DOCOSAHEXAN Yes 1000mg Take 1,000 [facility] OIC 9-22 mg by ity of ACID/EPA 10:41: mouth [place] (FISH OIL 15 daily. Medical ORAL) Branch BIOTIN ORAL Yes Take by Uni vers 06-17 mouth. ity of 10:41: [place] [address] Medical Branch FOLIC ACID Yes Take by [facility] ers ORAL 06-17 mouth ity of 10:41: daily. [place] [address] Medical Branch MULTIVIT Yes Take by [facility] s &MINERALS/F 06-17 mouth. ity of ERROUS FUM 10:41: [place] (MULTI 15 Medical VITAMIN Branch ORAL) METHYLCELLU Yes [facility] s LOSE (FIBER 06-17 ity of THERAPY 10:41: [place] [facility]) Medical Branch vitamin C Yes 1000mg Take 1,000 Univers with derrell 9-22 mg by ity of hips 1,000 10:41: mouth [place] mg tablet 15 daily. Medical Branch cholecalcif Yes 1000U Take 1,000 [facility] edmar, 9-22 Units by ity of vitamin D3, 10:41: mouth [place] 25 mcg 15 daily. Medical (1,000 Branch unit) tablet CRANBERRY Yes Take by [facility] rs FRUIT 06-17 mouth ity of [...] Uni vers 06-17 mouth. ity of 10:41: [place] [address] Medical Branch SUMAtriptan Yes [id number] 50mg Take 1 Univers 50 mg 9-22 tablet by ity of tablet 00:00: mouth as [place] 00 needed for Medical Migraine. Branch topiramate Yes [id number] 75mg Take 3 Univers 25 mg 9-22 tablets by ity of tablet 00:00: mouth in [place] 00 the Medical morning Branch and 3 tablets in the evening. SUMAtriptan 2022-0 Yes [id number] 50mg Take 1 Univers 50 mg 9-22 tablet by ity of tablet 00:00: mouth as [place] 00 needed for Medical Migraine. Branch topiramate 2022-0 Yes [id number] 75mg Take 3 Univers 25 mg 9-22 tablets by ity of tablet 00:00: mouth in [place] 00 the Medical morning Branch and 3 tablets in the evening. SUMAtriptan 2022-0 Yes [id number] 50mg Take 1 [facility] 50 mg 9-22 tablet by ity of tablet 00:00: mouth as [place] 00 needed for Medical Migraine. Branch topiramate 2022-0 Yes [id number] 75mg Take 3 [facility] 25 mg 9-22 tablets by ity of tablet 00:00: mouth in [place] 00 the Medical morning Branch and 3 tablets in the evening. SUMAtriptan 2022-0 Yes [id number] 50mg Take 1 [facility] 50 mg 9-22 tablet by ity of tablet 00:00: mouth as [place] 00 needed for Medical Migraine. Branch topiramate 2022-0 Yes [id number] 75mg Take 3 [facility] 25 mg 9-22 tablets by ity of tablet 00:00: mouth in [place] 00 the Medical morning Branch and 3 tablets in the evening. topiramate 2022-0 Yes [id number] 75mg Take 3 Univers 25 mg 9-22 tablets by ity of tablet 00:00: mouth in [place] 00 the Medical morning Branch and 3 tablets in the evening. topiramate 2022-0 Yes [id number] 75mg Take 3 [facility] 25 mg 9-22 tablets by ity of tablet 00:00: mouth in [place] 00 the Medical morning Branch and 3 tablets in the evening. topiramate 2022-0 Yes [id number] 75mg Take 3 Univers 25 mg 9-22 tablets by ity of tablet 00:00: mouth in [place] 00 the Medical morning Branch and 3 tablets in the evening. topiramate 2022-0 Yes [id number] 75mg Take 3 [facility] 25 mg 9-22 tablets by ity of tablet 00:00: mouth in [place] 00 the Medical morning Branch and 3 tablets in the evening. topiramate 2022-0 Yes [id number] 75mg Take 3 [facility] 25 mg 9-22 tablets by ity of tablet 00:00: mouth in [place] 00 the Medical morning Branch and 3 tablets in the evening. topiramate 2021-0 Yes [id number] 75mg Take 3 [facility] 25 mg 9-22 tablets by ity of tablet 00:00: mouth in [place] 00 the Medical morning Branch and 3 tablets in the evening. topiramate 2021-0 2021- No [id number] 75mg Take 3 [facility] 25 mg 9-22 10-13 tablets by ity of tablet 00:00: 00:00 mouth in [place] 00 :00 the Medical morning Branch and 3 tablets in the evening. SUMAtriptan 2021- No [id number] 50mg Take 1 Univers 50 mg 9-22 09-30 tablet by ity of tablet 00:00: 00:00 mouth as [place] 00 :00 needed for Medical Migraine. Branch pantoprazol 0 Yes [id number] 40mg Take 1 Univers e 40 mg EC 9-16 tablet by ity of tablet 00:00: mouth in [place] the Medical morning. Branch Simethicone 0 Yes [id number] 125mg Take 1 Univers 125 mg 9-16 capsule by ity of 00:00: mouth [place] 00 after Medical meals and Branch at bedtime as needed for Gas (Per bowel prep). pantoprazol 2021-0 Yes [id number] 40mg Take 1 Univers e 40 mg EC 9-16 tablet by ity of tablet 00:00: mouth in [place] the Medical morning. Branch Simethicone 2021-0 Yes [id number] 125mg Take 1 Univers 125 mg 9-16 capsule by ity of 00:00: mouth [place] 00 after Medical meals and Branch at bedtime as needed for Gas (Per bowel prep). pantoprazol 2021-0 Yes [id number] 40mg Take 1 Univers e 40 mg EC 9-16 tablet by ity of tablet 00:00: mouth in [place] 00 the Medical morning. Branch Simethicone 2021-0 Yes [id number] 125mg Take 1 Univers 125 mg 9-16 capsule by ity of 00:00: mouth [place] 00 after Medical meals and Branch at bedtime as needed for Gas (Per bowel prep). pantoprazol 2021-0 Yes [id number] 40mg Take 1 Univers e 40 mg EC 9-16 tablet by ity of tablet 00:00: mouth in [place] 00 the Medical morning. Branch Simethicone 0 Yes [id number] 125mg Take 1 [facility] 125 mg 9-16 capsule by ity of 00:00: mouth [place] 00 after Medical meals and Branch at bedtime as needed for Gas (Per bowel prep). pantoprazol 0 Yes [id number] 40mg Take 1 Univers e 40 mg EC 9-16 tablet by ity of tablet 00:00: mouth in [place] 00 the Medical morning. Branch Simethicone 0 Yes [id number] 125mg Take 1 [facility] 125 mg 9-16 capsule by ity of 00:00: mouth [place] 00 after Medical meals and Branch at bedtime as needed for Gas (Per bowel prep). pantoprazol Yes [id number] 40mg Take 1 Univers e 40 mg EC 9-16 tablet by ity of tablet 00:00: mouth in [place] 00 the Medical morning. Branch Simethicone Yes [id number] 125mg Take 1 [facility] 125 mg 9-16 capsule by ity of 00:00: mouth [place] 00 after Medical meals and Branch at bedtime as needed for Gas (Per bowel prep). pantoprazol Yes [id number] 40mg Take 1 [facility] e 40 mg EC 9-16 tablet by ity of tablet 00:00: mouth in [place] 00 the Medical morning. Branch Simethicone 0 Yes [id number] 125mg Take 1 [facility] 125 mg 9-16 capsule by ity of 00:00: mouth [place] 00 after Medical meals and Branch at bedtime as needed for Gas (Per bowel prep). pantoprazol 2021-0 Yes [id number] 40mg Take 1 Univers e 40 mg EC 9-16 tablet by ity of tablet 00:00: mouth in [place] 00 the Medical morning. Branch Simethicone Yes [id number] 125mg Take 1 [facility] 125 mg 9-16 capsule by ity of 00:00: mouth [place] 00 after Medical meals and Branch at bedtime as needed for Gas (Per bowel prep). pantoprazol 2021-0 Yes [id number] 40mg Take 1 [facility] e 40 mg EC 9-16 tablet by ity of tablet 00:00: mouth in [place] 00 the Medical morning. Branch Simethicone 0 Yes [id number] 125mg Take 1 [facility] 125 mg 9-16 capsule by ity of 00:00: mouth [place] 00 after Medical meals and Branch at bedtime as needed for Gas (Per bowel prep). pantoprazol 2021-0 Yes [id number] 40mg Take 1 [facility] e 40 mg EC 9-16 tablet by ity of tablet 00:00: mouth in [place] 00 the Medical morning. Branch Simethicone 2021-0 Yes [id number] 125mg Take 1 [facility] 125 mg 9-16 capsule by ity of 00:00: mouth [place] 00 after Medical meals and Branch at bedtime as needed for Gas (Per bowel prep). pantoprazol 2021-0 Yes [id number] 40mg Take 1 [facility] e 40 mg EC 9-16 tablet by ity of tablet 00:00: mouth in [place] 00 the Medical morning. Branch Simethicone 2021-0 Yes [id number] 125mg Take 1 [facility] 125 mg 9-16 capsule by ity of 00:00: mouth [place] 00 after Medical meals and Branch at bedtime as needed for Gas (Per bowel prep). pantoprazol 2021-0 Yes [id number] 40mg Take 1 [facility] e 40 mg EC 9-16 tablet by ity of tablet 00:00: mouth in [place] 00 the Medical morning. Branch Simethicone 2021-0 Yes [id number] 125mg Take 1 [facility] 125 mg 9-16 capsule by ity of 00:00: mouth [place] 00 after Medical meals and Branch at bedtime as needed for Gas (Per bowel prep). pantoprazol 2021-0 Yes [id number] 40mg Take 1 Univers e 40 mg EC 9-16 tablet by ity of tablet 00:00: mouth in [place] 00 the Medical morning. Branch Simethicone 2021-0 Yes [id number] 125mg Take 1 [facility] 125 mg 9-16 capsule by ity of 00:00: mouth [place] 00 after Medical meals and Branch at bedtime as needed for Gas (Per bowel prep). pantoprazol 2021-0 Yes [id number] 40mg Take 1 [facility] e 40 mg EC 9-16 tablet by ity of tablet 00:00: mouth in [place] 00 the Medical morning. Branch Simethicone 2021-0 Yes [id number] 125mg Take 1 [facility] 125 mg 9-16 capsule by ity of 00:00: mouth [place] 00 after Medical meals and Branch at bedtime as needed for Gas (Per bowel prep). pantoprazol Yes [id number] 40mg Take 1 [facility] e 40 mg EC 9-16 tablet by ity of tablet 00:00: mouth in [place] 00 the Medical morning. Branch Simethicone 0 Yes [id number] 125mg Take 1 [facility] 125 mg 9-16 capsule by ity of 00:00: mouth [place] 00 after Medical meals and Branch at bedtime as needed for Gas (Per bowel prep). Simethicone 0 Yes [id number] 125mg Take 1 [facility] 125 mg 9-16 capsule by ity of 00:00: mouth [place] 00 after Medical meals and Branch at bedtime as needed for Gas (Per bowel prep). Simethicone 0 Yes [id number] 125mg Take 1 [facility] 125 mg 9-16 capsule by ity of 00:00: mouth [place] 00 after Medical meals and Branch at bedtime as needed for Gas (Per bowel prep). Simethicone 2021- No [id number] 125mg Take 1 [facility] 125 mg 9-16 11-01 capsule by ity of 00:00: 00:00 mouth [place] 00 :00 after Medical meals and Branch at bedtime as needed for Gas (Per bowel prep). Simethicone 2021- No [id number] 125mg Take 1 [facility] 125 mg 9-16 11-01 capsule by ity of 00:00: 00:00 mouth [place] 00 :00 after Medical meals and Branch at bedtime as needed for Gas (Per bowel prep). pantoprazol 2021- No [id number] 40mg Take 1 [facility] e 40 mg EC 9-16 10-13 tablet by ity of tablet 00:00: 00:00 mouth in [place] 00 :00 the Medical morning. Branch SUMAtriptan 0 Yes [id number] TAKE 1 [facility] 50 mg 9-06 TABLET BY ity of tablet 00:00: MOUTH [place] 00 NEEDED FOR Medical MIGRAINE Branch HEADACHE ( MAY REPEAT IN 2 HOURS ) SUMAtriptan 2021-0 Yes [id number] TAKE 1 [facility] 50 mg 9-06 TABLET BY ity of tablet 00:00: MOUTH [place] 00 NEEDED FOR Medical MIGRAINE Branch HEADACHE ( MAY REPEAT IN 2 HOURS ) SUMAtriptan 2021-0 Yes [id number] TAKE 1 [facility] 50 mg 9-06 TABLET BY ity of tablet 00:00: MOUTH [place] 00 NEEDED FOR Medical MIGRAINE Branch HEADACHE ( MAY REPEAT IN 2 HOURS ) SUMAtriptan 2022-0 Yes [id number] TAKE 1 [facility] 50 mg 9-06 TABLET BY ity of tablet 00:00: MOUTH [place] 00 NEEDED FOR Medical MIGRAINE Branch HEADACHE ( MAY REPEAT IN 2 HOURS ) SUMAtriptan 2022-0 Yes [id number] TAKE 1 [facility] 50 mg 9-06 TABLET BY ity of tablet 00:00: MOUTH [place] 00 NEEDED FOR Medical MIGRAINE Branch HEADACHE ( MAY REPEAT IN 2 HOURS ) SUMAtriptan 2022-0 Yes [id number] TAKE 1 [facility] 50 mg 9-06 TABLET BY ity of tablet 00:00: MOUTH [place] 00 NEEDED FOR Medical MIGRAINE Branch HEADACHE ( MAY REPEAT IN 2 HOURS ) SUMAtriptan 2-0 Yes [id number] TAKE 1 [facility] 50 mg 9-06 TABLET BY ity of tablet 00:00: MOUTH [place] 00 NEEDED FOR Medical MIGRAINE Branch HEADACHE ( MAY REPEAT IN 2 HOURS ) SUMAtriptan 2-0 Yes [id number] TAKE 1 [facility] 50 mg 9-06 TABLET BY ity of tablet 00:00: MOUTH [place] 00 NEEDED FOR Medical MIGRAINE Branch HEADACHE ( MAY REPEAT IN 2 HOURS ) SUMAtriptan 2-0 Yes [id number] TAKE 1 [facility] 50 mg 9-06 TABLET BY ity of tablet 00:00: MOUTH [place] 00 NEEDED FOR Medical MIGRAINE Branch HEADACHE ( MAY REPEAT IN 2 HOURS ) SUMAtriptan 2022-0 Yes [id number] TAKE 1 [facility] 50 mg 9-06 TABLET BY ity of tablet 00:00: MOUTH [place] 00 NEEDED FOR Medical MIGRAINE Branch HEADACHE ( MAY REPEAT IN 2 HOURS ) SUMAtriptan 2-0 Yes [id number] TAKE 1 [facility] 50 mg 9-06 TABLET BY ity of tablet 00:00: MOUTH [place] 00 NEEDED FOR Medical MIGRAINE Branch HEADACHE ( MAY REPEAT IN 2 HOURS ) SUMAtriptan 2022-0 Yes [id number] TAKE 1 [facility] 50 mg 9-06 TABLET BY ity of tablet 00:00: MOUTH [place] 00 NEEDED FOR Medical MIGRAINE Branch HEADACHE ( MAY REPEAT IN 2 HOURS ) SUMAtriptan 2022-0 2022- No [id number] TAKE 1 [facility] 50 mg 9-06 09-22 TABLET BY ity of tablet 00:00: 00:00 MOUTH [place] 00 :00 NEEDED FOR Medical MIGRAINE Branch HEADACHE ( MAY REPEAT IN 2 HOURS ) SUMAtriptan 2-0 2- No [id number] TAKE 1 [facility] 50 mg 9-03 04- TABLET BY [facility] tablet 00:00: 00:00 MOUTH [place] 00 :00 NEEDED FOR Medical MIGRAINE Branch HEADACHE ( MAY REPEAT IN 2 HOURS ) SUMAtriptan 2022-0 2- No [id number] TAKE 1 [facility] 50 mg 9-03 04- TABLET BY [facility] tablet 00:00: 00:00 MOUTH [place] 00 :00 NEEDED FOR Medical MIGRAINE Branch HEADACHE ( MAY REPEAT IN 2 HOURS ) topiramate 2022-0 Yes [id number] Take 2 [facility] 25 mg 9-01 tablets by [facility] tablet 00:00: mouth [place] 00 twice Medical daily Branch topiramate 2022-0 Yes [id number] Take 2 [facility] 25 mg 9-01 tablets by [facility] tablet 00:00: mouth [place] 00 twice Medical daily Branch topiramate 2022-0 Yes [id number] Take 2 [facility] 25 mg 9-01 tablets by [facility] tablet 00:00: mouth [place] 00 twice Medical daily Branch topiramate 2022-0 Yes [id number] Take 2 [facility] 25 mg 9-01 tablets by [facility] tablet 00:00: mouth [place] 00 twice Medical daily Branch topiramate 2022-0 Yes [id number] Take 2 [facility] 25 mg 9-01 tablets by [facility] tablet 00:00: mouth [place] 00 twice Medical daily Branch topiramate 2022-0 Yes [id number] Take 2 [facility] 25 mg 9-01 tablets by [facility] tablet 00:00: mouth [place] 00 twice Medical daily Branch topiramate 2022-0 Yes [id number] Take 2 [facility] 25 mg 9-01 tablets by [facility] tablet 00:00: mouth [place] 00 twice Medical daily Branch topiramate 2022-0 Yes [id number] Take 2 [facility] 25 mg 9-01 tablets by [facility] tablet 00:00: mouth [place] 00 twice Medical daily Branch topiramate 2022-0 Yes [id number] Take 2 [facility] 25 mg 9-01 tablets by [facility] tablet 00:00: mouth [place] 00 twice Medical daily Branch topiramate 2022-0 Yes [id number] Take 2 [facility] 25 mg 9-01 tablets by [facility] tablet 00:00: mouth [place] 00 twice Medical daily Branch topiramate 2-0 Yes [id number] Take 2 [facility] 25 mg 9-01 tablets by [facility] tablet 00:00: mouth 00 twice Medical daily Branch topiramate 2-0 Yes [id number] Take 2 [facility] 25 mg 9-01 tablets by [facility] tablet 00:00: mouth 00 twice Medical daily Branch topiramate 2-0 Yes [id number] Take 2 [facility] 25 mg 9-01 tablets by [facility] tablet 00:00: mouth 00 twice Medical daily Branch topiramate 2-0 Yes [id number] Take 2 [facility] 25 mg 9-01 tablets by [facility] tablet 00:00: mouth 00 twice Medical daily Branch topiramate 2021-0 Yes [id number] Take 2 [facility] 25 mg 9-01 tablets by [facility] tablet 00:00: mouth 00 twice Medical daily Branch topiramate 2-0 2022- No [id number] Take 2 [facility] 25 mg 9-01 09-22 tablets by [facility] tablet 00:00: 00:00 mouth [place] 00 :00 twice Medical daily Branch topiramate 2-0 2022- No [id number] Take 2 [facility] 25 mg 9-01 09-22 tablets by [facility] tablet 00:00: 00:00 mouth [place] 00 :00 twice Medical daily Branch topiramate 2-0 2022- No [id number] Take 2 [facility] 25 mg 9-01 09-22 tablets by [facility] tablet 00:00: 00:00 [facility] [place] 00 :00 twice Medical daily Branch methocarbam 2021-0 Yes [id number] 500mg Take 1 [facility] oL 500 mg 8-11 tablet by [facility] o f tablet 00:00: mouth (four) Medical times Branch daily as needed for Pain (scale 7-10). methocarbam 2021-0 Yes [id number] 500mg Take 1 [facility] oL 500 mg 8-11 tablet by [facility] f tablet 00:00: mouth (four) Medical times Branch daily as needed for Pain (scale 7-10). methocarbam 2021-0 Yes [id number] 500mg Take 1 [facility] oL 500 mg 8-11 tablet by [facility] f tablet 00:00: mouth (four) Medical times Branch daily as needed for Pain (scale 7-10). methocarbam 2022-0 Yes [id number] 500mg Take 1 [facility] oL 500 mg 8-11 tablet by [facility] o f tablet 00:00: mouth (four) Medical times Branch daily as needed for Pain (scale 7-10). methocarbam 2-0 Yes [id number] 500mg Take 1 [facility] oL 500 mg 8-11 tablet by [facility] f tablet 00:00: mouth (four) Medical times Branch daily as needed for Pain (scale 7-10). methocarbam 2-0 Yes [id number] 500mg Take 1 [facility] oL 500 mg 8-11 tablet by [facility] f tablet 00:00: mouth (four) Medical times Branch daily as needed for Pain (scale 7-10). methocarbam 2-0 Yes [id number] 500mg Take 1 [facility] oL 500 mg 8-11 tablet by [facility] o f tablet 00:00: mouth (four) Medical times Branch daily as needed for Pain (scale 7-10). methocarbam 2-0 Yes [id number] 500mg Take 1 [facility] oL 500 mg 8-11 tablet by [facility] f tablet 00:00: mouth (four) Medical times Branch daily as needed for Pain (scale 7-10). methocarbam 2-0 Yes [id number] 500mg Take 1 [facility] oL 500 mg 8-11 tablet by [facility] f tablet 00:00: mouth (four) Medical times Branch daily as needed for Pain (scale 7-10). methocarbam 2-0 Yes [id number] 500mg Take 1 [facility] oL 500 mg 8-11 tablet by [facility] f tablet 00:00: mouth (four) Medical times Branch daily as needed for Pain (scale 7-10). methocarbam 2-0 Yes [id number] 500mg Take 1 [facility] oL 500 mg 8-11 tablet by [facility] o f tablet 00:00: mouth (four) Medical times Branch daily as needed for Pain (scale 7-10). methocarbam 2-0 Yes [id number] 500mg Take 1 [facility] oL 500 mg 8-11 tablet by [facility] f tablet 00:00: mouth (four) Medical times Branch daily as needed for Pain (scale 7-10). methocarbam 2-0 Yes [id number] 500mg Take 1 [facility] oL 500 mg 8-11 tablet by [facility] f tablet 00:00: mouth (four) Medical times Branch daily as needed for Pain (scale 7-10). methocarbam 2-0 Yes [id number] 500mg Take 1 [facility] oL 500 mg 8-11 tablet by [facility] o f tablet 00:00: mouth (four) Medical times Branch daily as needed for Pain (scale 7-10). methocarbam 2022-0 Yes [id number] 500mg Take 1 [facility] oL 500 mg 8-11 tablet by [facility] o f tablet 00:00: mouth (four) Medical times Branch daily as needed for Pain (scale 7-10). methocarbam 2-0 Yes [id number] 500mg Take 1 [facility] oL 500 mg 8-11 tablet by [facility] f tablet 00:00: mouth (four) Medical times Branch daily as needed for Pain (scale 7-10). methocarbam 2-0 Yes [id number] 500mg Take 1 [facility] oL 500 mg 8-11 tablet by [facility] f tablet 00:00: mouth (four) Medical times Branch daily as needed for Pain (scale 7-10). methocarbam 2-0 Yes [id number] 500mg Take 1 [facility] oL 500 mg 8-11 tablet by [facility] f tablet 00:00: mouth (four) Medical times Branch daily as needed for Pain (scale 7-10). methocarbam 2-0 Yes [id number] 500mg Take 1 [facility] oL 500 mg 8-11 tablet by [facility] f tablet 00:00: mouth (four) Medical times Branch daily as needed for Pain (scale 7-10). methocarbam 2-0 Yes [id number] 500mg Take 1 [facility] oL 500 mg 8-11 tablet by [facility] f tablet 00:00: mouth (four) Medical times Branch daily as needed for Pain (scale 7-10). methocarbam 2022-0 Yes [id number] 500mg Take 1 [facility] oL 500 mg 8-11 tablet by [facility] f tablet 00:00: mouth (four) Medical times Branch daily as needed for Pain (scale 7-10). methocarbam 2022-0 Yes [id number] 500mg Take 1 [facility] oL 500 mg 8-11 tablet by [facility] o f tablet 00:00: mouth (four) Medical times Branch daily as needed for Pain (scale 7-10). methocarbam 2-0 Yes [id number] 500mg Take 1 [facility] oL 500 mg 8-11 tablet by [facility] f tablet 00:00: mouth (four) Medical times Branch daily as needed for Pain (scale 7-10). methocarbam 2-0 Yes [id number] 500mg Take 1 [facility] oL 500 mg 8-11 tablet by [facility] o f tablet 00:00: mouth (four) Medical times Branch daily as needed for Pain (scale 7-10). methocarbam 2-0 Yes [id number] 500mg Take 1 [facility] oL 500 mg 8-11 tablet by [facility] o f tablet 00:00: mouth (four) Medical times Branch daily as needed for Pain (scale 7-10). methocarbam 2021-0 Yes [id number] 500mg Take 1 [facility] oL 500 mg 8-11 tablet by [facility] f tablet 00:00: mouth (four) Medical times Branch daily as needed for Pain (scale 7-10). methocarbam 2-0 Yes [id number] 500mg Take 1 [facility] oL 500 mg 8-11 tablet by [facility] f tablet 00:00: mouth (four) Medical times Branch daily as needed for Pain (scale 7-10). methocarbam 2-0 Yes [id number] 500mg Take 1 [facility] o[facility] 500 mg 8-11 tablet by [facility] f tablet 00:00: mouth (four) Medical times Branch daily as needed for Pain (scale 7-10). methocarbam 2-0 Yes [id number] 500mg Take 1 [facility] o[facility] 500 mg 8-11 tablet by [facility] f tablet 00:00: mouth (four) Medical times Branch daily as needed for Pain (scale 7-10). methocarbam 2022-0 Yes [id number] 500mg Take 1 [facility] oL 500 mg 8-11 tablet by [facility] f tablet 00:00: mouth (four) Medical times Branch daily as needed for Pain (scale 7-10). methocarbam 2022-0 Yes [id number] 500mg Take 1 [facility] oL 500 mg 8-11 tablet by [facility] f tablet 00:00: mouth (four) Medical times Branch daily as needed for Pain (scale 7-10). methocarbam 2-0 Yes [id number] 500mg Take 1 [facility] oL 500 mg 8-11 tablet by [facility] f tablet 00:00: mouth (four) Medical times Branch daily as needed for Pain (scale 7-10). methocarbam 2022-0 Yes [id number] 500mg Take 1 [facility] oL 500 mg 8-11 tablet by [facility] f tablet 00:00: mouth (four) Medical times Branch daily as needed for Pain (scale 7-10). methocarbam 2022-0 Yes [id number] 500mg Take 1 [facility] oL 500 mg 8-11 tablet by [facility] f tablet 00:00: mouth (four) Medical times Branch daily as needed for Pain (scale 7-10). methocarbam 2-0 Yes [id number] 500mg Take 1 [facility] oL 500 mg 8-11 tablet by [facility] f tablet 00:00: mouth (four) Medical times Branch daily as needed for Pain (scale 7-10). methocarbam 2-0 Yes [id number] 500mg Take 1 [facility] oL 500 mg 8-11 tablet by [facility] f tablet 00:00: mouth (four) Medical times Branch daily as needed for Pain (scale 7-10). methocarbam 2-0 Yes [id number] 500mg Take 1 [facility] o[facility] 500 mg 8-11 tablet by [facility] o f tablet 00:00: mouth (four) Medical times Branch daily as needed for Pain (scale 7-10). methocarbam 2-0 Yes [id number] 500mg Take 1 [facility] oL 500 mg 8-11 tablet by [facility] f tablet 00:00: mouth (four) Medical times Branch daily as needed for Pain (scale 7-10). methocarbam 2022-0 Yes [id number] 500mg Take 1 [facility] oL 500 mg 8-11 tablet by [facility] o f tablet 00:00: mouth (four) Medical times Branch daily as needed for Pain (scale 7-10). methocarbam 2022-0 Yes [id number] 500mg Take 1 [facility] oL 500 mg 8-11 tablet by [facility] o f tablet 00:00: mouth (four) Medical times Branch daily as needed for Pain (scale 7-10). methocarbam 2022-0 Yes [id number] 500mg Take 1 [facility] oL 500 mg 8-11 tablet by [facility] o f tablet 00:00: mouth (four) Medical times Branch daily as needed for Pain (scale 7-10). methocarbam 2022-0 Yes [id number] 500mg Take 1 [facility] oL 500 mg 8-11 tablet by [facility] o f tablet 00:00: mouth (four) Medical times Branch daily as needed for Pain (scale 7-10). methocarbam 2022-0 Yes [id number] 500mg Take 1 [facility] oL 500 mg 8-11 tablet by [facility] o f tablet 00:00: mouth (four) Medical times Branch daily as needed for Pain (scale 7-10). methocarbam 2022-0 Yes [id number] 500mg Take 1 [facility] oL 500 mg 8-11 tablet by [facility] o f tablet 00:00: mouth (four) Medical times Branch daily as needed for Pain (scale 7-10). methocarbam 2022-0 Yes [id number] 500mg Take 1 [facility] oL 500 mg 8-11 tablet by ity o f tablet 00:00: mouth (four) Medical times Branch daily as needed for Pain (scale 7-10). methocarbam 2022-0 Yes [id number] 500mg Take 1 [facility] oL 500 mg 8-11 tablet by [facility] o f tablet 00:00: mouth (four) Medical times Branch daily as needed for Pain (scale 7-10). methocarbam 2022-0 Yes [id number] 500mg Take 1 [facility] oL 500 mg 8-11 tablet by [facility] o f tablet 00:00: mouth (four) Medical times Branch daily as needed for Pain (scale 7-10). methocarbam 2022-0 Yes [id number] 500mg Take 1 [facility] oL 500 mg 8-11 tablet by [facility] o f tablet 00:00: mouth (four) Medical times Branch daily as needed for Pain (scale 7-10). methocarbam 2022-0 Yes [id number] 500mg Take 1 [facility] oL 500 mg 8-11 tablet by [facility] o f tablet 00:00: mouth (four) Medical times Branch daily as needed for Pain (scale 7-10). methocarbam 2022-0 Yes [id number] 500mg Take 1 [facility] oL 500 mg 8-11 tablet by [facility] o f tablet 00:00: mouth (four) Medical times Branch daily as needed for Pain (scale 7-10). methocarbam 2022-0 Yes [id number] 500mg Take 1 [facility] oL 500 mg 8-11 tablet by [facility] o f tablet 00:00: mouth (four) Medical times Branch daily as needed for Pain (scale 7-10). methocarbam 2-0 Yes [id number] 500mg Take 1 [facility] oL 500 mg 8-11 tablet by [facility] o f tablet 00:00: mouth (four) Medical times Branch daily as needed for Pain (scale 7-10). methocarbam 2-0 Yes [id number] 500mg Take 1 [facility] oL 500 mg 8-11 tablet by [facility] o f tablet 00:00: mouth (four) Medical times Branch daily as needed for Pain (scale 7-10). methocarbam 2-0 Yes [id number] 500mg Take 1 [facility] oL 500 mg 8-11 tablet by [facility] o f tablet 00:00: mouth (four) Medical times Branch daily as needed for Pain (scale 7-10). methocarbam 2-0 Yes [id number] 500mg Take 1 [facility] oL 500 mg 8-11 tablet by [facility] o f tablet 00:00: mouth (four) Medical times Branch daily as needed for Pain (scale 7-10). methocarbam 2-0 Yes [id number] 500mg Take 1 [facility] oL 500 mg 8-11 tablet by [facility] o f tablet 00:00: mouth (four) Medical times Branch daily as needed for Pain (scale 7-10). methocarbam 2022-0 Yes [id number] 500mg Take 1 [facility] oL 500 mg 8-11 tablet by [facility] o f tablet 00:00: mouth (four) Medical times Branch daily as needed for Pain (scale 7-10). methocarbam 2022-0 Yes [id number] 500mg Take 1 [facility] oL 500 mg 8-11 tablet by [facility] o f tablet 00:00: mouth (four) Medical times Branch daily as needed for Pain (scale 7-10). methocarbam 2021-0 Yes [id number] 500mg Take 1 [facility] oL 500 mg 8-11 tablet by [facility] o f tablet 00:00: mouth 00 (four) Medical times Branch daily as needed for Pain (scale 7-10). methocarbam 2021-0 Yes [id number] 500mg Take 1 [facility] oL 500 mg 8-11 tablet by [facility] o f tablet 00:00: mouth (four) Medical times Branch daily as needed for Pain (scale 7-10). methocarbam 2022- No [id number] 500mg Take 1 [facility] oL 500 mg 8-07 27-24 tablet by [facility] tablet 00:00: 00:00 mouth 4 00 :00 (four) Medical times Branch daily as needed for Pain (scale 7-10). methocarbam 3- No [id number] 500mg Take 1 [facility] oL 500 mg 8-07 27-24 tablet by [facility] tablet 00:00: 00:00 mouth 4 00 : (four) Medical times Branch daily as needed for Pain (scale 7-10). methocarbam 3- No [id number] 500mg Take 1 [facility] oL 500 mg 8-07 27-24 tablet by [facility] tablet 00:00: 00:00 mouth 4 00 :00 (four) Medical times Branch daily as needed for Pain (scale 7-10). methocarbam 3- No [id number] 500mg Take 1 [facility] oL 500 mg 8-07 27-24 tablet by [facility] of tablet 00:00: 00:00 mouth 4 00 : (four) Medical times Branch daily as needed for Pain (scale 7-10). methocarbam 3- No [id number] 500mg Take 1 [facility] oL 500 mg 8-07 27-24 tablet by [facility] of tablet 00:00: 00:00 mouth 4 00 :00 (four) Medical times Branch daily as needed for Pain (scale 7-10). LOSARTAN 50 2021-0 Yes [id number] Take 1 [facility] mg tablet 7-20 tablet by ity o f 00:00: mouth 00 twice Medical daily Branch DILTIAZEM 2021-0 Yes [id number] Take 1 [facility] [place] 120 mg 24 7-20 capsule by [facility] of hr capsule 00:00: mouth twice Medical daily Branch LOSARTAN 50 2021-0 Yes [id number] Take 1 [facility] mg tablet 7-20 tablet by ity o f 00:00: mouth twice Medical daily Branch DILTIAZEM 2021-0 Yes [id number] Take 1 [facility] [place] 120 mg 24 7-20 capsule by [facility] of hr capsule 00:00: mouth twice Medical daily Branch LOSARTAN 50 2021-0 Yes [id number] Take 1 [facility] mg tablet 7-20 tablet by ity o f 00:00: mouth twice Medical daily Branch DILTIAZEM 2021-0 Yes [id number] Take 1 [facility] [place] 120 mg 24 7-20 capsule by [facility] of hr capsule 00:00: mouth twice Medical daily Branch LOSARTAN 50 2021-0 Yes [id number] Take 1 [facility] mg tablet 7-20 tablet by ity o f 00:00: mouth twice Medical daily Branch DILTIAZEM 2021-0 Yes [id number] Take 1 [facility] [place] 120 mg 24 7-20 capsule by [facility] of hr capsule 00:00: mouth twice Medical daily Branch LOSARTAN 50 2021-0 Yes [id number] Take 1 [facility] mg tablet 7-20 tablet by ity o f 00:00: mouth twice Medical daily Branch DILTIAZEM 2021-0 Yes [id number] Take 1 [facility] [place] 120 mg 24 7-20 capsule by [facility] of hr capsule 00:00: mouth twice Medical daily Branch LOSARTAN 50 2021-0 Yes [id number] Take 1 [facility] mg tablet 7-20 tablet by ity o f 00:00: mouth twice Medical daily Branch DILTIAZEM 2021-0 Yes [id number] Take 1 [facility] [place] 120 mg 24 7-20 capsule by [facility] of hr capsule 00:00: mouth twice Medical daily Branch LOSARTAN 50 2021-0 Yes [id number] Take 1 [facility] mg tablet 7-20 tablet by ity o f 00:00: mouth twice Medical daily Branch DILTIAZEM 2021-0 Yes [id number] Take 1 [facility] [place] 120 mg 24 7-20 capsule by [facility] of hr capsule 00:00: mouth twice Medical daily Branch LOSARTAN 50 2021-0 Yes [id number] Take 1 [facility] mg tablet 7-20 tablet by ity o f 00:00: mouth twice Medical daily Branch DILTIAZEM 2021-0 Yes [id number] Take 1 [facility] [place] 120 mg 24 7-20 capsule by [facility] of hr capsule 00:00: mouth twice Medical daily Branch LOSARTAN 50 2021-0 Yes [id number] Take 1 [facility] mg tablet 7-20 tablet by ity o f 00:00: mouth twice Medical daily Branch DILTIAZEM 2021-0 Yes [id number] Take 1 [facility] [place] 120 mg 24 7-20 capsule by [facility] of hr capsule 00:00: mouth twice Medical daily Branch LOSARTAN 50 2021-0 Yes [id number] Take 1 [facility] mg tablet 7-20 tablet by ity o f 00:00: mouth twice Medical daily Branch DILTIAZEM 2021-0 Yes [id number] Take 1 [facility] [place] 120 mg 24 7-20 capsule by [facility] hr capsule 00:00: mouth twice Medical daily Branch LOSARTAN 50 2021-0 Yes [id number] Take 1 [facility] mg tablet 7-20 tablet by ity o f 00:00: mouth twice Medical daily Branch DILTIAZEM 2021-0 Yes [id number] Take 1 [facility] [place] 120 mg 24 7-20 capsule by [facility] hr capsule 00:00: mouth twice Medical daily Branch LOSARTAN 50 2021-0 Yes [id number] Take 1 [facility] mg tablet 7-20 tablet by ity o f 00:00: mouth twice Medical daily Branch DILTIAZEM 2021-0 Yes [id number] Take 1 [facility] [place] 120 mg 24 7-20 capsule by [facility] of hr capsule 00:00: mouth twice Medical daily Branch LOSARTAN 50 2021-0 Yes [id number] Take 1 [facility] mg tablet 7-20 tablet by ity o f 00:00: mouth twice Medical daily Branch DILTIAZEM 2021-0 Yes [id number] Take 1 [facility] [place] 120 mg 24 7-20 capsule by [facility] of hr capsule 00:00: mouth twice Medical daily Branch LOSARTAN 50 2021-0 Yes [id number] Take 1 [facility] mg tablet 7-20 tablet by ity o f 00:00: mouth twice Medical daily Branch DILTIAZEM 2021-0 Yes [id number] Take 1 [facility] [place] 120 mg 24 7-20 capsule by [facility] of hr capsule 00:00: mouth twice Medical daily Branch LOSARTAN 50 2021-0 Yes [id number] Take 1 [facility] mg tablet 7-20 tablet by ity o f 00:00: mouth twice Medical daily Branch DILTIAZEM 2021-0 Yes [id number] Take 1 [facility] [place] 120 mg 24 7-20 capsule by [facility] of hr capsule 00:00: mouth twice Medical daily Branch LOSARTAN 50 2021-0 Yes [id number] Take 1 [facility] mg tablet 7-20 tablet by ity o f 00:00: mouth twice Medical daily Branch DILTIAZEM 2021-0 Yes [id number] Take 1 [facility] [place] 120 mg 24 7-20 capsule by [facility] of hr capsule 00:00: mouth twice Medical daily Branch LOSARTAN 50 2021-0 Yes [id number] Take 1 [facility] mg tablet 7-20 tablet by ity o f 00:00: mouth twice Medical daily Branch DILTIAZEM 2021-0 Yes [id number] Take 1 [facility] [place] 120 mg 24 7-20 capsule by [facility] of hr capsule 00:00: mouth twice Medical daily Branch LOSARTAN 50 2021-0 Yes [id number] Take 1 [facility] mg tablet 7-20 tablet by [facility]y o f 00:00: mouth twice Medical daily Branch DILTIAZEM 2021-0 Yes [id number] Take 1 [facility] [place] 120 mg 24 7-20 capsule by [facility] of hr capsule 00:00: mouth twice Medical daily Branch LOSARTAN 50 2021-0 Yes [id number] Take 1 [facility] mg tablet 7-20 tablet by ity o f 00:00: mouth twice Medical daily Branch DILTIAZEM 2021-0 Yes [id number] Take 1 [facility] [place] 120 mg 24 7-20 capsule by [facility] hr capsule 00:00: mouth twice Medical daily Branch LOSARTAN 50 2-0 Yes [id number] Take 1 [facility] mg tablet 7-20 tablet by ity o f 00:00: mouth twice Medical daily Branch DILTIAZEM 2021-0 Yes [id number] Take 1 [facility] [place] 120 mg 24 7-20 capsule by [facility] of hr capsule 00:00: mouth twice Medical daily Branch LOSARTAN 50 2021-0 Yes [id number] Take 1 [facility] mg tablet 7-20 tablet by ity o f 00:00: mouth twice Medical daily Branch DILTIAZEM 2-0 Yes [id number] Take 1 [facility] [place] 120 mg 24 7-20 capsule by [facility] of hr capsule 00:00: mouth twice Medical daily Branch LOSARTAN 50 2021-0 Yes [id number] Take 1 [facility] mg tablet 7-20 tablet by ity o f 00:00: mouth twice Medical daily Branch DILTIAZEM 2021-0 Yes [id number] Take 1 [facility] [place] 120 mg 24 7-20 capsule by [facility] of hr capsule 00:00: mouth twice Medical daily Branch LOSARTAN 50 2021-0 Yes [id number] Take 1 [facility] mg tablet 7-20 tablet by ity o f 00:00: mouth twice Medical daily Branch DILTIAZEM 2021-0 Yes [id number] Take 1 [facility] [place] 120 mg 24 7-20 capsule by [facility] of hr capsule 00:00: mouth twice Medical daily Branch LOSARTAN 50 2021-0 Yes [id number] Take 1 [facility] mg tablet 7-20 tablet by ity o f 00:00: mouth twice Medical daily Branch DILTIAZEM 2021-0 Yes [id number] Take 1 [facility] [place] 120 mg 24 7-20 capsule by [facility] of hr capsule 00:00: mouth twice Medical daily Branch LOSARTAN 50 2021-0 Yes [id number] Take 1 [facility] mg tablet 7-20 tablet by [facility]y o f 00:00: mouth twice Medical daily Branch DILTIAZEM 2021-0 Yes [id number] Take 1 [facility] [place] 120 mg 24 7-20 capsule by [facility] of hr capsule 00:00: mouth twice Medical daily Branch LOSARTAN 50 2-0 Yes [id number] Take 1 [facility] mg tablet 7-20 tablet by [facility]y o f 00:00: mouth twice Medical daily Branch DILTIAZEM 2-0 Yes [id number] Take 1 [facility] [place] 120 mg 24 7-20 capsule by [facility] of hr capsule 00:00: mouth twice Medical daily Branch LOSARTAN 50 2021-0 Yes [id number] Take 1 [facility] mg tablet 7-20 tablet by ity o f 00:00: mouth twice Medical daily Branch DILTIAZEM 2-0 Yes [id number] Take 1 [facility] [place] 120 mg 24 7-20 capsule by [facility] hr capsule 00:00: mouth twice Medical daily Branch LOSARTAN 50 2021-0 Yes [id number] Take 1 [facility] mg tablet 7-20 tablet by ity o f 00:00: mouth twice Medical daily Branch DILTIAZEM 2021-0 Yes [id number] Take 1 [facility] [place] 120 mg 24 7-20 capsule by [facility] of hr capsule 00:00: mouth twice Medical daily Branch LOSARTAN 50 2021-0 Yes [id number] Take 1 [facility] mg tablet 7-20 tablet by ity o f 00:00: mouth twice Medical daily Branch DILTIAZEM 2021-0 Yes [id number] Take 1 [facility] [place] 120 mg 24 7-20 capsule by [facility] of hr capsule 00:00: mouth twice Medical daily Branch LOSARTAN 50 2021-0 Yes [id number] Take 1 [facility] mg tablet 7-20 tablet by ity o f 00:00: mouth twice Medical daily Branch DILTIAZEM 2021-0 Yes [id number] Take 1 [facility] [place] 120 mg 24 7-20 capsule by [facility] of hr capsule 00:00: mouth twice Medical daily Branch LOSARTAN 50 2021-0 Yes [id number] Take 1 [facility] mg tablet 7-20 tablet by ity o f 00:00: mouth twice Medical daily Branch DILTIAZEM 2021-0 Yes [id number] Take 1 [facility] [place] 120 mg 24 7-20 capsule by [facility] of hr capsule 00:00: mouth twice Medical daily Branch LOSARTAN 50 2021-0 Yes [id number] Take 1 [facility] mg tablet 7-20 tablet by ity o f 00:00: mouth twice Medical daily Branch DILTIAZEM 2021-0 Yes [id number] Take 1 [facility] [place] 120 mg 24 7-20 capsule by [facility] of hr capsule 00:00: mouth 00 twice Medical daily Branch LOSARTAN 50 2021-0 2021- No [id number] Take 1 [facility] mg tablet 7-20 10-13 tablet by [facility] of 00:00: 00:00 mouth [place] 00 :00 twice Medical daily Branch DILTIAZEM 2021-0 2021- No [id number] Take 1 [facility] 120 mg 24 7-20 10-13 capsule by [facility] of hr capsule 00:00: 00:00 mouth [place] 00 :00 twice Medical daily Branch LOSARTAN 50 2021-0 2021- No [id number] Take 1 [facility] mg tablet 7-20 10-13 tablet by [facility] of 00:00: 00:00 mouth [place] 00 :00 twice Medical daily Branch DILTIAZEM 2021- No [id number] Take 1 [facility] nivers 120 mg 24 7-20 10-13 capsule by [facility] of hr capsule 00:00: 00:00 mouth [place] 00 :00 twice Medical daily Branch methocarbam 0 Yes [id number] 500mg Take 1 [facility] oL 500 mg 7-02 tablet by [facility] o f tablet 00:00: mouth 4 [place] 00 (four) Medical times Branch daily. methocarbam Yes [id number] 500mg Take 1 [facility] oL 500 mg 7-02 tablet by [facility] o f tablet 00:00: mouth 4 [place] 00 (four) Medical times Branch daily. methocarbam Yes [id number] 500mg Take 1 [facility] oL 500 mg 7-02 tablet by [facility] o f tablet 00:00: mouth 4 [place] 00 (four) Medical times Branch daily. methocarbam Yes [id number] 500mg Take 1 [facility] oL 500 mg 7-02 tablet by [facility] o f tablet 00:00: mouth 4 [place] 00 (four) Medical times Branch daily. methocarbam Yes [id number] 500mg Take 1 [facility] oL 500 mg 7-02 tablet by [facility] o f tablet 00:00: mouth 4 [place] 00 (four) Medical times Branch daily. methocarbam 2021- No [id number] 500mg Take 1 [facility] oL 500 mg 7-02 08-11 tablet by [facility] of tablet 00:00: 00:[address] [place] [address] 00 :00 (four) Medical times Branch daily. methocarbam 2021- No [id number] 500mg Take 1 [facility] oL 500 mg 7-02 08-11 tablet by [facility] tablet 00:00: 00:00 mouth 4 [place] 00 :00 (four) Medical times Branch daily. SUMATRIPTAN Yes [id number] TAKE 1 [facility] 50 mg 6-17 TABLET BY [facility] tablet 00:00: MOUTH [place] 00 NEEDED FOR Medical MIGRAINE Branch HEADACHE (MAY REPEAT IN TWO HOURS) SUMATRIPTAN 2021-0 Yes [id number] TAKE 1 [facility] 50 mg 6-17 TABLET BY [facility] tablet 00:00: MOUTH [place] 00 NEEDED FOR Medical MIGRAINE Branch HEADACHE (MAY REPEAT IN TWO HOURS) SUMATRIPTAN 2022-0 Yes [id number] TAKE 1 [facility] 50 mg 6-17 TABLET BY [facility] tablet 00:00: MOUTH [place] 00 NEEDED FOR Medical MIGRAINE Branch HEADACHE (MAY REPEAT IN TWO HOURS) SUMATRIPTAN 2022-0 Yes [id number] TAKE 1 [facility] 50 mg 6-17 TABLET BY [facility] of tablet 00:00: MOUTH [place] 00 NEEDED FOR Medical MIGRAINE Branch HEADACHE (MAY REPEAT IN TWO HOURS) SUMATRIPTAN 2022-0 Yes [id number] TAKE 1 [facility] 50 mg 6-17 TABLET BY [facility] of tablet 00:00: MOUTH [place] 00 NEEDED FOR Medical MIGRAINE Branch HEADACHE (MAY REPEAT IN TWO HOURS) SUMATRIPTAN 2022-0 Yes [id number] TAKE 1 [facility] 50 mg 6-17 TABLET BY [facility] of tablet 00:00: MOUTH [place] 00 NEEDED FOR Medical MIGRAINE Branch HEADACHE (MAY REPEAT IN TWO HOURS) SUMATRIPTAN 2022-0 Yes [id number] TAKE 1 [facility] 50 mg 6-17 TABLET BY [facility] of tablet 00:00: MOUTH [place] 00 NEEDED FOR Medical MIGRAINE Branch HEADACHE (MAY REPEAT IN TWO HOURS) SUMATRIPTAN 2022-0 Yes [id number] TAKE 1 [facility] 50 mg 6-17 TABLET BY [facility] of tablet 00:00: MOUTH [place] 00 NEEDED FOR Medical MIGRAINE Branch HEADACHE (MAY REPEAT IN TWO HOURS) SUMATRIPTAN 2022-0 Yes [id number] TAKE 1 [facility] 50 mg 6-17 TABLET BY it[facility] of tablet 00:00: MOUTH [place] 00 NEEDED FOR Medical MIGRAINE Branch HEADACHE (MAY REPEAT IN TWO HOURS) SUMATRIPTAN 2022-0 Yes [id number] TAKE 1 [facility] 50 mg 6-17 TABLET BY ity of tablet 00:00: MOUTH [place] 00 NEEDED FOR Medical MIGRAINE Branch HEADACHE (MAY REPEAT IN TWO HOURS) SUMATRIPTAN 2022-0 Yes [id number] TAKE 1 [facility] 50 mg 6-17 TABLET BY [facility] of tablet 00:00: MOUTH [place] 00 NEEDED FOR Medical MIGRAINE Branch HEADACHE (MAY REPEAT IN TWO HOURS) SUMATRIPTAN 2022-0 Yes [id number] TAKE 1 [facility] 50 mg 6-17 TABLET BY [facility] of tablet 00:00: MOUTH [place] 00 NEEDED FOR Medical MIGRAINE Branch HEADACHE (MAY REPEAT IN TWO HOURS) SUMATRIPTAN 2022-0 Yes [id number] TAKE 1 [facility] 50 mg 6-17 TABLET BY [facility] of tablet 00:00: MOUTH [place] 00 NEEDED FOR Medical MIGRAINE Branch HEADACHE (MAY REPEAT IN TWO HOURS) SUMATRIPTAN 2021-0 Yes [id number] TAKE 1 [facility] 50 mg 6-17 TABLET BY [facility] of tablet 00:00: MOUTH [place] 00 NEEDED FOR Medical MIGRAINE Branch HEADACHE (MAY REPEAT IN TWO HOURS) SUMATRIPTAN 2021-0 Yes [id number] TAKE 1 [facility] 50 mg 6-17 TABLET BY [facility]y of tablet 00:00: MOUTH [place] 00 NEEDED FOR Medical MIGRAINE Branch HEADACHE (MAY REPEAT IN TWO HOURS) SUMATRIPTAN 2021-0 Yes [id number] TAKE 1 [facility] 50 mg 6-17 TABLET BY it[facility] of tablet 00:00: MOUTH [place] 00 NEEDED FOR Medical MIGRAINE Branch HEADACHE (MAY REPEAT IN TWO HOURS) SUMATRIPTAN 2021-0 Yes [id number] TAKE 1 [facility] 50 mg 6-17 TABLET BY [facility] of tablet 00:00: MOUTH [place] 00 NEEDED FOR Medical MIGRAINE Branch HEADACHE (MAY REPEAT IN TWO HOURS) SUMATRIPTAN 2021-0 2021- No [id number] TAKE 1 [facility] 50 mg 6-17 09-06 TABLET BY it[facility] of tablet 00:00: 00:00 MOUTH [place] 00 :00 NEEDED FOR Medical MIGRAINE Branch HEADACHE (MAY REPEAT IN TWO HOURS) SUMATRIPTAN 2021-0 2021- No [id number] TAKE 1 [facility] 50 mg 6-17 09-06 TABLET BY ity of tablet 00:00: 00:00 MOUTH [place] 00 :00 NEEDED FOR Medical MIGRAINE Branch HEADACHE (MAY REPEAT IN TWO HOURS) SUMATRIPTAN 2021-0 2021- No [id number] TAKE 1 [facility] 50 mg 6-17 09-06 TABLET BY ity of tablet 00:00: 00:00 MOUTH [place] 00 :00 NEEDED FOR Medical MIGRAINE Branch HEADACHE (MAY REPEAT IN TWO HOURS) SUMATRIPTAN 2021-0 2021- No [id number] TAKE 1 [facility] 50 mg 6-17 09-06 TABLET BY ity of tablet 00:00: 00:00 MOUTH [place] 00 :00 NEEDED FOR Medical MIGRAINE Branch HEADACHE (MAY REPEAT IN TWO HOURS) fexofenadin 2021-0 Yes [id number] 180mg Take 1 [facility] e (LUIS 6-13 tablet by ity of ALLERGY) 00:00: mouth [place] 180 mg 00 daily. Medical tablet Branch fexofenadin 0 Yes [id number] 180mg Take 1 [facility] e (LUIS 6-13 tablet by ity of ALLERGY) 00:00: mouth [place] 180 mg 00 daily. Medical tablet Branch fexofenadin 0 Yes [id number] 180mg Take 1 [facility] e (LUIS 6-13 tablet by ity of ALLERGY) 00:00: mouth [place] 180 mg 00 daily. Medical tablet Branch fexofenadin 0 Yes [id number] 180mg Take 1 [facility] e (LUIS 6-13 tablet by ity of ALLERGY) 00:00: mouth [place] 180 mg 00 daily. Medical tablet Branch fexofenadin Yes [id number] 180mg Take 1 [facility] e (LUIS 6-13 tablet by ity of ALLERGY) 00:00: mouth [place] 180 mg 00 daily. Medical tablet Branch fexofenadin Yes [id number] 180mg Take 1 [facility] e (LUIS 6-13 tablet by ity of ALLERGY) 00:00: mouth [place] 180 mg 00 daily. Medical tablet Branch fexofenadin Yes [id number] 180mg Take 1 [facility] e (LUIS 6-13 tablet by ity of ALLERGY) 00:00: mouth [place] 180 mg 00 daily. Medical tablet Branch fexofenadin Yes [id number] 180mg Take 1 [facility] e (LUIS 6-13 tablet by ity of ALLERGY) 00:00: mouth [place] 180 mg 00 daily. Medical tablet Branch fexofenadin 0 Yes [id number] 180mg Take 1 [facility] e (LUIS 6-13 tablet by ity of ALLERGY) 00:00: mouth [place] 180 mg 00 daily. Medical tablet Branch fexofenadin 0 Yes [id number] 180mg Take 1 [facility] e (LUIS 6-13 tablet by ity of ALLERGY) 00:00: mouth [place] 180 mg 00 daily. Medical tablet Branch fexofenadin 0 Yes [id number] 180mg Take 1 [facility] e (LUIS 6-13 tablet by ity of ALLERGY) 00:00: mouth [place] 180 mg 00 daily. Medical tablet Branch fexofenadin 0 Yes [id number] 180mg Take 1 [facility] e (LUIS 6-13 tablet by ity of ALLERGY) 00:00: mouth [place] 180 mg 00 daily. Medical tablet Branch fexofenadin 0 Yes [id number] 180mg Take 1 [facility] e (LUIS 6-13 tablet by ity of ALLERGY) 00:00: mouth [place] 180 mg 00 daily. Medical tablet Branch fexofenadin Yes [id number] 180mg Take 1 [facility] e (LUIS 6-13 tablet by ity of ALLERGY) 00:00: mouth [place] 180 mg 00 daily. Medical tablet Branch fexofenadin Yes [id number] 180mg Take 1 [facility] e (LUIS 6-13 tablet by ity of ALLERGY) 00:00: mouth [place] 180 mg 00 daily. Medical tablet Branch fexofenadin Yes [id number] 180mg Take 1 [facility] e (LUIS 6-13 tablet by ity of ALLERGY) 00:00: mouth [place] 180 mg 00 daily. Medical tablet Branch fexofenadin Yes [id number] 180mg Take 1 [facility] e (LUIS 6-13 tablet by ity of ALLERGY) 00:00: mouth [place] 180 mg 00 daily. Medical tablet Branch fexofenadin Yes [id number] 180mg Take 1 [facility] e (LUIS 6-13 tablet by ity of ALLERGY) 00:00: mouth [place] 180 mg 00 daily. Medical tablet Branch fexofenadin Yes [id number] 180mg Take 1 [facility] e (LUIS 6-13 tablet by ity of ALLERGY) 00:00: mouth [place] 180 mg 00 daily. Medical tablet Branch fexofenadin Yes [id number] 180mg Take 1 [facility] e (LUIS 6-13 tablet by ity of ALLERGY) 00:00: mouth [place] 180 mg 00 daily. Medical tablet Branch fexofenadin 0 Yes [id number] 180mg Take 1 [facility] e (LUIS 6-13 tablet by ity of ALLERGY) 00:00: mouth [place] 180 mg 00 daily. Medical tablet Branch fexofenadin Yes [id number] 180mg Take 1 [facility] e (LUIS 6-13 tablet by ity of ALLERGY) 00:00: mouth [place] 180 mg 00 daily. Medical tablet Branch fexofenadin Yes [id number] 180mg Take 1 [facility] e (LUIS 6-13 tablet by ity of ALLERGY) 00:00: mouth [place] 180 mg 00 daily. Medical tablet Branch fexofenadin Yes [id number] 180mg Take 1 [facility] e (LUIS 6-13 tablet by ity of ALLERGY) 00:00: mouth [place] 180 mg 00 daily. Medical tablet Branch fexofenadin Yes [id number] 180mg Take 1 [facility] e (LUIS 6-13 tablet by ity of ALLERGY) 00:00: mouth [place] 180 mg 00 daily. Medical tablet Branch fexofenadin Yes [id number] 180mg Take 1 [facility] e (LUIS 6-13 tablet by ity of ALLERGY) 00:00: mouth [place] 180 mg 00 daily. Medical tablet Branch fexofenadin Yes [id number] 180mg Take 1 [facility] e (LUIS 6-13 tablet by ity of ALLERGY) 00:00: mouth [place] 180 mg 00 daily. Medical tablet Branch fexofenadin Yes [id number] 180mg Take 1 [facility] e (LUIS 6-13 tablet by ity of ALLERGY) 00:00: mouth [place] 180 mg 00 daily. Medical tablet Branch fexofenadin Yes [id number] 180mg Take 1 [facility] e (LUIS 6-13 tablet by ity of ALLERGY) 00:00: mouth [place] 180 mg 00 daily. Medical tablet Branch fexofenadin Yes [id number] 180mg Take 1 [facility] e (LUIS 6-13 tablet by ity of ALLERGY) 00:00: mouth [place] 180 mg 00 daily. Medical tablet Branch fexofenadin Yes [id number] 180mg Take 1 [facility] e (LUIS 6-13 tablet by ity of ALLERGY) 00:00: mouth [place] 180 mg 00 daily. Medical tablet Branch fexofenadin Yes [id number] 180mg Take 1 [facility] e (LUIS 6-13 tablet by ity of ALLERGY) 00:00: mouth [place] 180 mg 00 daily. Medical tablet Branch fexofenadin Yes [id number] 180mg Take 1 [facility] e (LUIS 6-13 tablet by ity of ALLERGY) 00:00: mouth [place] 180 mg 00 daily. Medical tablet Branch fexofenadin 2022-0 Yes [id number] 180mg Take 1 [facility] e (LUIS 6-13 tablet by ity of ALLERGY) 00:00: mouth [place] 180 mg 00 daily. Medical tablet Branch fexofenadin 0 Yes [id number] 180mg Take 1 [facility] e (LUIS 6-13 tablet by ity of ALLERGY) 00:00: mouth [place] 180 mg 00 daily. Medical tablet Branch fexofenadin 0 Yes [id number] 180mg Take 1 [facility] e (LUIS 6-13 tablet by ity of ALLERGY) 00:00: mouth [place] 180 mg 00 daily. Medical tablet Branch fexofenadin Yes [id number] 180mg Take 1 [facility] e (LUIS 6-13 tablet by ity of ALLERGY) 00:00: mouth [place] 180 mg 00 daily. Medical tablet Branch fexofenadin Yes [id number] 180mg Take 1 [facility] e (LUIS 6-13 tablet by ity of ALLERGY) 00:00: mouth [place] 180 mg 00 daily. Medical tablet Branch fexofenadin Yes [id number] 180mg Take 1 [facility] e (LUIS 6-13 tablet by ity of ALLERGY) 00:00: mouth [place] 180 mg 00 daily. Medical tablet Branch fexofenadin Yes [id number] 180mg Take 1 [facility] e (LUIS 6-13 tablet by ity of ALLERGY) 00:00: mouth [place] 180 mg 00 daily. Medical tablet Branch fexofenadin Yes [id number] 180mg Take 1 [facility] e (LUIS 6-13 tablet by ity of ALLERGY) 00:00: mouth [place] 180 mg 00 daily. Medical tablet Branch fexofenadin 0 Yes [id number] 180mg Take 1 [facility] e (LUIS 6-13 tablet by ity of ALLERGY) 00:00: mouth [place] 180 mg 00 daily. Medical tablet Branch fexofenadin 0 Yes [id number] 180mg Take 1 [facility] e (LUIS 6-13 tablet by ity of ALLERGY) 00:00: mouth [place] 180 mg 00 daily. Medical tablet Branch fexofenadin Yes [id number] 180mg Take 1 [facility] e (LUIS 6-13 tablet by ity of ALLERGY) 00:00: mouth [place] 180 mg 00 daily. Medical tablet Branch fexofenadin 2022-0 Yes [id number] 180mg Take 1 [facility] e (LUIS 6-13 tablet by ity of ALLERGY) 00:00: mouth [place] 180 mg 00 daily. Medical tablet Branch fexofenadin 0 Yes [id number] 180mg Take 1 [facility] e (LUIS 6-13 tablet by ity of ALLERGY) 00:00: mouth [place] 180 mg 00 daily. Medical tablet Branch fexofenadin 0 Yes [id number] 180mg Take 1 [facility] e (LUIS 6-13 tablet by ity of ALLERGY) 00:00: mouth [place] 180 mg 00 daily. Medical tablet Branch fexofenadin Yes [id number] 180mg Take 1 [facility] e (LUIS 6-13 tablet by ity of ALLERGY) 00:00: mouth [place] 180 mg 00 daily. Medical tablet Branch fexofenadin Yes [id number] 180mg Take 1 [facility] e (LUIS 6-13 tablet by ity of ALLERGY) 00:00: mouth [place] 180 mg 00 daily. Medical tablet Branch fexofenadin Yes [id number] 180mg Take 1 [facility] e (LUIS 6-13 tablet by ity of ALLERGY) 00:00: mouth [place] 180 mg 00 daily. Medical tablet Branch fexofenadin 0 Yes [id number] 180mg Take 1 [facility] e (LUIS 6-13 tablet by ity of ALLERGY) 00:00: mouth [place] 180 mg 00 daily. Medical tablet Branch fexofenadin 0 Yes [id number] 180mg Take 1 [facility] e (LUIS 6-13 tablet by ity of ALLERGY) 00:00: mouth [place] 180 mg 00 daily. Medical tablet Branch fexofenadin Yes [id number] 180mg Take 1 [facility] e (LUIS 6-13 tablet by ity of ALLERGY) 00:00: mouth [place] 180 mg 00 daily. Medical tablet Branch fexofenadin 0 Yes [id number] 180mg Take 1 [facility] e (LUIS 6-13 tablet by ity of ALLERGY) 00:00: mouth [place] 180 mg 00 daily. Medical tablet Branch fexofenadin Yes [id number] 180mg Take 1 [facility] e (LUIS 6-13 tablet by ity of ALLERGY) 00:00: mouth [place] 180 mg 00 daily. Medical tablet Branch fexofenadin 0 Yes [id number] 180mg Take 1 [facility] e (LUIS 6-13 tablet by ity of ALLERGY) 00:00: mouth [place] 180 mg 00 daily. Medical tablet Branch fexofenadin Yes [id number] 180mg Take 1 [facility] e (LUIS 6-13 tablet by ity of ALLERGY) 00:00: mouth [place] 180 mg 00 daily. Medical tablet Branch fexofenadin 0 Yes [id number] 180mg Take 1 [facility] e (LUIS 6-13 tablet by ity of ALLERGY) 00:00: mouth [place] 180 mg 00 daily. Medical tablet Branch fexofenadin Yes [id number] 180mg Take 1 [facility] e (LUIS 6-13 tablet by ity of ALLERGY) 00:00: mouth [place] 180 mg 00 daily. Medical tablet Branch fexofenadin Yes [id number] 180mg Take 1 [facility] e (LUIS 6-13 tablet by ity of ALLERGY) 00:00: mouth [place] 180 mg 00 daily. Medical tablet Branch fexofenadin Yes [id number] 180mg Take 1 [facility] e (LUIS 6-13 tablet by ity of ALLERGY) 00:00: mouth [place] 180 mg 00 daily. Medical tablet Branch fexofenadin Yes [id number] 180mg Take 1 [facility] e (LUIS 6-13 tablet by ity of ALLERGY) 00:00: mouth [place] 180 mg 00 daily. Medical tablet Branch fexofenadin Yes [id number] 180mg Take 1 [facility] e (LUIS 6-13 tablet by ity of ALLERGY) 00:00: mouth [place] 180 mg 00 daily. Medical tablet Branch fexofenadin Yes [id number] 180mg Take 1 [facility] e (LUIS 6-13 tablet by ity of ALLERGY) 00:00: mouth [place] 180 mg 00 daily. Medical tablet Branch fexofenadin Yes [id number] 180mg Take 1 [facility] e (LUIS 6-13 tablet by ity of ALLERGY) 00:00: mouth [place] 180 mg 00 daily. Medical tablet Branch fexofenadin Yes [id number] 180mg Take 1 [facility] e (LUIS 6-13 tablet by ity of ALLERGY) 00:00: mouth [place] 180 mg 00 daily. Medical tablet Branch fexofenadin 2-0 Yes [id number] 180mg Take 1 [facility] e (LUIS 6-13 tablet by ity of ALLERGY) 00:00: mouth [place] 180 mg 00 daily. Medical tablet Branch fexofenadin 2021-0 Yes [id number] 180mg Take 1 [facility] e (LUIS 6-13 tablet by ity of ALLERGY) 00:00: mouth [place] 180 mg 00 daily. Medical tablet Branch fexofenadin 2021-0 Yes [id number] 180mg Take 1 [facility] e (LUIS 6-13 tablet by ity of ALLERGY) 00:00: mouth [place] 180 mg 00 daily. Medical tablet Branch fexofenadin 2021-0 Yes [id number] 180mg Take 1 [facility] e (LUIS 6-13 tablet by ity of ALLERGY) 00:00: mouth [place] 180 mg 00 daily. Medical tablet Branch fexofenadin 2021-0 Yes [id number] 180mg Take 1 [facility] e (LUIS 6-13 tablet by ity of ALLERGY) 00:00: mouth [place] 180 mg 00 daily. Medical tablet Branch fexofenadin 2021-0 Yes [id number] 180mg Take 1 [facility] e (LUIS 6-13 tablet by ity of ALLERGY) 00:00: mouth [place] 180 mg 00 daily. Medical tablet Branch fexofenadin 2021-0 2022- No [id number] 180mg Take 1 [facility] e (LUIS 6-13 10-19 tablet by ity of ALLERGY) 00:00: 00:00 mouth [place] 180 mg 00 :00 daily. Medical tablet Branch fexofenadin 2-0 2022- No [id number] 180mg Take 1 [facility] e (LUIS 6-13 10-19 tablet by ity of ALLERGY) 00:00: 00:00 mouth [place] 180 mg 00 :00 daily. Medical tablet Branch fexofenadin 2-0 3- No [id number] 180mg Take 1 [facility] e (LUIS 6-13 10-19 tablet by ity of ALLERGY) 00:00: 00:00 mouth [place] 180 mg 00 :00 daily. Medical tablet Branch fexofenadin 2-0 2022- No [id number] 180mg Take 1 [facility] e (LUIS 6-13 10-19 tablet by ity of ALLERGY) 00:00: 00:00 mouth [place] 180 mg 00 :00 daily. Medical tablet Branch fexofenadin 2022- No [id number] 180mg Take 1 [facility] e (LUIS 6-10-19 tablet by ity of ALLERGY) 00:00: 00:00 mouth [place] 180 mg 00 :00 daily. Medical tablet Branch fexofenadin 3- No [id number] 180mg Take 1 [facility] e (LUIS 610-19 tablet by ity of ALLERGY) 00:00: 00:00 mouth [place] 180 mg 00 :00 daily. Medical tablet Branch fexofenadin 2022- No [id number] 180mg Take 1 [facility] e (LUIS 03-08 tablet by ity of ALLERGY) 00:00: 00:00 mouth [place] 180 mg 00 :00 daily. Medical tablet Branch rosuvastati Yes [id number] 10mg Take 1 [facility] n 10 mg 6-08 tablet by ity of tablet 00:00: mouth at [place] [address] bedtime. Medical Branch rosuvastati Yes [id number] 10mg Take 1 [facility] n 10 mg 6-08 tablet by ity of tablet 00:00: mouth at [place] [address] bedtime. Medical Branch rosuvastati Yes [id number] 10mg Take 1 [facility] n 10 mg 6-08 tablet by ity of tablet 00:00: mouth at [place] [address] bedtime. Medical Branch rosuvastati Yes [id number] 10mg Take 1 [facility] n 10 mg 6-08 tablet by ity of tablet 00:00: mouth at [place] [address] bedtime. Medical Branch rosuvastati Yes [id number] 10mg Take 1 [facility] n 10 mg 6-08 tablet by ity of tablet 00:00: mouth at [place] [address] bedtime. Medical Branch rosuvastati Yes [id number] 10mg Take 1 [facility] n 10 mg 6-08 tablet by ity of tablet 00:00: mouth at [place] [address] bedtime. Medical Branch rosuvastati Yes [id number] 10mg Take 1 [facility] n 10 mg 6-08 tablet by ity of tablet 00:00: mouth at [place] [address] bedtime. Medical Branch rosuvastati Yes [id number] 10mg Take 1 [facility] n 10 mg 6-08 tablet by ity of tablet 00:00: mouth at [place] bedtime. Medical Branch rosuvastati 2021- Yes [id number] 10mg Take 1 [facility] n 10 mg 6-08 tablet by ity of tablet 00:00: mouth at [place] bedtime. Medical Branch rosuvastati 0 Yes [id number] 10mg Take 1 [facility] n 10 mg 6-08 tablet by ity of tablet 00:00: mouth at [place] bedtime. Medical Branch rosuvastati 2021-0 Yes [id number] 10mg Take 1 [facility] n 10 mg 6-08 tablet by ity of tablet 00:00: mouth at [place] bedtime. Medical Branch rosuvastati 2021- Yes [id number] 10mg Take 1 [facility] n 10 mg 6-08 tablet by ity of tablet 00:00: mouth at [place] bedtime. Medical Branch rosuvastati Yes [id number] 10mg Take 1 [facility] n 10 mg 6-08 tablet by ity of tablet 00:00: mouth at [place] bedtime. Medical Branch rosuvastati Yes [id number] 10mg Take 1 [facility] n 10 mg 6-08 tablet by ity of tablet 00:00: mouth at [place] bedtime. Medical Branch rosuvastati Yes [id number] 10mg Take 1 [facility] n 10 mg 6-08 tablet by ity of tablet 00:00: mouth at [place] bedtime. Medical Branch rosuvastati Yes [id number] 10mg Take 1 [facility] n 10 mg 6-08 tablet by ity of tablet 00:00: mouth at [place] [address] bedtime. Medical Branch rosuvastati 2021-0 Yes [id number] 10mg Take 1 [facility] n 10 mg 6-08 tablet by ity of tablet 00:00: mouth at [place] [address] bedtime. Medical Branch rosuvastati 2021-0 Yes [id number] 10mg Take 1 [facility] n 10 mg 6-08 tablet by ity of tablet 00:00: mouth at [place] [address] bedtime. Medical Branch rosuvastati 2021-0 Yes [id number] 10mg Take 1 [facility] n 10 mg 6-08 tablet by ity of tablet 00:00: mouth at [place] [address] bedtime. Medical Branch rosuvastati 2021-0 Yes [id number] 10mg Take 1 [facility] n 10 mg 6-08 tablet by ity of tablet 00:00: mouth at [place] [address] bedtime. Medical Branch rosuvastati Yes [id number] 10mg Take 1 [facility] n 10 mg 6-08 tablet by ity of tablet 00:00: mouth at [place] [address] bedtime. Medical Branch rosuvastati Yes [id number] 10mg Take 1 [facility] n 10 mg 6-08 tablet by ity of tablet 00:00: mouth at [place] [address] bedtime. Medical Branch rosuvastati Yes [id number] 10mg Take 1 [facility] n 10 mg 6-08 tablet by ity of tablet 00:00: mouth at [place] [address] bedtime. Medical Branch rosuvastati Yes [id number] 10mg Take 1 [facility] n 10 mg 6-08 tablet by ity of tablet 00:00: mouth at [place] [address] bedtime. Medical Branch rosuvastati Yes [id number] 10mg Take 1 [facility] n 10 mg 6-08 tablet by ity of tablet 00:00: mouth at [place] [address] bedtime. Medical Branch rosuvastati Yes [id number] 10mg Take 1 [facility] n 10 mg 6-08 tablet by ity of tablet 00:00: mouth at [place] [address] bedtime. Medical Branch rosuvastati Yes [id number] 10mg Take 1 [facility] n 10 mg 6-08 tablet by ity of tablet 00:00: mouth at [place] [address] bedtime. Medical Branch rosuvastati Yes [id number] 10mg Take 1 [facility] n 10 mg 6-08 tablet by ity of tablet 00:00: mouth at [place] [address] bedtime. Medical Branch rosuvastati 2021- Yes [id number] 10mg Take 1 [facility] n 10 mg 6-08 tablet by ity of tablet 00:00: mouth at [place] [address] bedtime. Medical Branch rosuvastati 2021-0 Yes [id number] 10mg Take 1 [facility] n 10 mg 6-08 tablet by ity of tablet 00:00: mouth at [place] [address] bedtime. Medical Branch rosuvastati Yes [id number] 10mg Take 1 [facility] n 10 mg 6-08 tablet by ity of tablet 00:00: mouth at [place] [address] bedtime. Medical Branch rosuvastati 2021-0 Yes [id number] 10mg Take 1 [facility] n 10 mg 6-08 tablet by ity of tablet 00:00: mouth at [place] 00 bedtime. Medical Branch rosuvastati 2021-0 Yes [id number] 10mg Take 1 [facility] n 10 mg 6-08 tablet by ity of tablet 00:00: mouth at [place] bedtime. Medical Branch rosuvastati 2021-0 Yes [id number] 10mg Take 1 [facility] n 10 mg 6-08 tablet by ity of tablet 00:00: mouth at [place] bedtime. Medical Branch rosuvastati 2021-0 Yes [id number] 10mg Take 1 [facility] n 10 mg 6-08 tablet by ity of tablet 00:00: mouth at [place] bedtime. Medical Branch rosuvastati 2021- Yes [id number] 10mg Take 1 [facility] n 10 mg 6-08 tablet by ity of tablet 00:00: mouth at [place] bedtime. Medical Branch rosuvastati 2021- Yes [id number] 10mg Take 1 [facility] n 10 mg 6-08 tablet by ity of tablet 00:00: mouth at [place] bedtime. Medical Branch rosuvastati 2021- Yes [id number] 10mg Take 1 [facility] n 10 mg 6-08 tablet by ity of tablet 00:00: mouth at [place] bedtime. Medical Branch rosuvastati 2021- Yes [id number] 10mg Take 1 [facility] n 10 mg 6-08 tablet by ity of tablet 00:00: mouth at [place] bedtime. Medical Branch rosuvastati 2021-0 Yes [id number] 10mg Take 1 [facility] n 10 mg 6-08 tablet by ity of tablet 00:00: mouth at [place] bedtime. Medical Branch rosuvastati 2021-0 Yes [id number] 10mg Take 1 [facility] n 10 mg 6-08 tablet by ity of tablet 00:00: mouth at [place] bedtime. Medical Branch rosuvastati 2021-0 Yes [id number] 10mg Take 1 [facility] n 10 mg 6-08 tablet by ity of tablet 00:00: mouth at [place] bedtime. Medical Branch rosuvastati 2021-0 Yes [id number] 10mg Take 1 [facility] n 10 mg 6-08 tablet by ity of tablet 00:00: mouth at [place] 00 bedtime. Medical Branch rosuvastati 2021-0 Yes [id number] 10mg Take 1 [facility] n 10 mg 6-08 tablet by ity of tablet 00:00: mouth at [place] 00 bedtime. [facility] rosuvastati Yes [id number] 10mg Take 1 [facility] n 10 mg 6-08 tablet by ity of tablet 00:00: mouth at [place] 00 bedtime. [facility] rosuvastati 2021- No [id number] 10mg Take 1 [facility] n 10 mg 6-08 10-13 tablet by ity of tablet 00:00: 00:00 mouth at [place] 00 :00 bedtime. [facility] rosuvastati 2021- No [id number] 10mg Take 1 [facility] n 10 mg 6-08 10-13 tablet by ity of tablet 00:00: 00:00 mouth at [place] 00 :00 bedtime. [facility] rosuvastati 2021- No [id number] 10mg Take 1 Univers n 10 mg 6-08 10-13 tablet by ity of tablet 00:00: 00:00 mouth at [place] 00 :00 bedtime. [facility] Branch water for 2021- No PRN, Univers [...] Pre-op lactated 2021- No 1000mL at [facility] 6[facility]07 06-07 mL/hr, ity of infusion 12:45: 12:59 1,000 mL, Emanuel as 1,000 mL 00 :00 IV Medical Infusion, Branch ONCE, 1 dose, On Tue03/02/22 at 0745, Routine, DSU Pre-op FOLIC ACID 0 Yes Take by [facility] ers ORAL 6-07 mouth ity of 11:23: daily. [place] [address] Medical Branch MULTIVIT Yes Take by [facility] &MINERALS/F 6-07 mouth. ity of ERROUS FUM 11:23: [place] (MULTI 09 Medical VITAMIN Branch ORAL) METHYLCELLU 0 Yes [facility] LOSE (FIBER 6-07 ity of THERAPY 11:23: [place] MISC) Medical Branch DOCUSATE Yes Take by [facility] s SODIUM 6-07 mouth. ity of (COLACE [...] Branch unit tablet CRANBERRY Yes Take by [facility] rs FRUIT 6-07 mouth ity of [...] Uni vers 6-07 mouth. ity of 11:23: [place] [address] Medical Branch FOLIC ACID 0 Yes Take by Univ ers ORAL 6-07 mouth ity of 11:23: daily. [place] [address] Medical Branch MULTIVIT Yes Take by Univer s &MINERALS/F 6-07 mouth. ity of ERROUS FUM 11:23: [place] (MULTI 09 Medical VITAMIN Branch ORAL) METHYLCELLU 2022-0 Yes Univer s LOSE (FIBER 6-07 ity of THERAPY 11:23: [facility]) 09 Medical Branch DOCUSATE Yes [facility] SODIUM 6-07 mouth. ity [...] Branch unit tablet CRANBERRY Yes Take by [facility] rs FRUIT 6-07 mouth ity of [...] Uni vers 6-07 mouth. ity of 11:23: [place] [address] Medical Branch FOLIC ACID Yes Take by Univ ers ORAL 6-07 mouth ity of 11:23: daily. [place] Medical Branch MULTIVIT Yes Take by [facility] &MINERALS/F 6-07 mouth. ity of ERROUS FUM 11:23: [place] (MULTI 09 Medical VITAMIN Branch ORAL) METHYLCELLU 0 Yes Univer s LOSE (FIBER 6-07 ity of THERAPY 11:23: [facility]) 09 Medical Branch DOCUSATE Yes [facility] SODIUM 6-07 mouth. ity [...] Uni vers 6-07 mouth. ity of 11:23: [place] [address] Medical Branch FOLIC ACID Yes Take by [...] Branch unit tablet CRANBERRY Yes [facility] FRUIT 6-07 mouth ity [...] LOSE (FIBER 6-07 ity of THERAPY 11:23: [facility]) 09 Medical Branch DOCUSATE Yes Take by [...] LOSE (FIBER 6-07 ity of THERAPY 11:23: [facility]) 09 Medical Branch DOCUSATE Yes Take by [facility] s SODIUM 6-07 mouth. ity of (COLACE [...] Branch unit tablet CRANBERRY Yes Take by [facility] rs FRUIT 6-07 mouth ity of EXTRACT 11:23: daily. [place] (CRANBERRY Medical ORAL) Branch CALCIUM Yes Take by [facility] ORAL 6-07 mouth ity of 11:23: daily. [place] Medical Branch DOCOSAHEXAN Yes 1000mg Take 1,000 [facility] OIC 6-07 mg by ity of ACID/EPA 11:23: mouth [place] (FISH OIL 09 daily. Medical ORAL) Branch BIOTIN ORAL Yes Take by Uni vers 6-07 mouth. ity of 11:23: [place] [address] Medical Branch FOLIC ACID Yes Take by [facility] ers ORAL 6-07 mouth ity of 11:23: daily. [place] [facility] MULTIVIT Yes Take by [facility] s &MINERALS/F 6-07 mouth. ity of ERROUS FUM 11:23: [place] (MULTI 09 Medical VITAMIN Branch ORAL) METHYLCELLU Yes [facility] s LOSE (FIBER 6-07 ity of THERAPY 11:23: [place] MISC) 09 Medical Branch DOCUSATE Yes Take by [facility] s SODIUM 6-07 mouth. ity of (COLACE [...] Branch unit tablet CRANBERRY Yes Take [facility] FRUIT 6-07 mouth ity [...] Uni vers 6-07 mouth. ity of 11:23: [place] [address] Medical Branch FOLIC ACID Yes Take by [facility] ers ORAL 6-07 mouth ity of 11:23: daily. [place] [address] Medical Branch MULTIVIT Yes Take by Univer s &MINERALS/F 6-07 mouth. ity of ERROUS FUM 11:23: [place] (MULTI 09 Medical VITAMIN Branch ORAL) METHYLCELLU Yes Univer s LOSE (FIBER 6-07 ity of THERAPY 11:23: [facility]) 09 Medical Branch DOCUSATE Yes [facility] SODIUM 6-07 mouth. ity [...] Branch unit tablet CRANBERRY Yes Take by [facility] rs FRUIT 6-07 mouth ity of [...] Uni vers 6-07 mouth. ity of 11:23: [place] [address] Medical Branch FOLIC ACID Yes Take by [facility] ers ORAL 6-07 mouth ity of 11:23: daily. [place] [address] Medical Branch MULTIVIT Yes Take [facility] &MINERALS/F 6-07 mouth. ity of ERROUS FUM 11:23: [place] (MULTI 09 Medical VITAMIN Branch ORAL) METHYLCELLU Yes Univer s LOSE (FIBER 6-07 ity of THERAPY 11:23: [place] MIS) 09 Medical Branch DOCUSATE Yes Take by [facility] s SODIUM 6-07 mouth. ity of (COLACE [...] 09 Medical VITAMIN Branch ORAL) METHYLCELLU Yes [facility] LO[facility] (FIBER 6-07 ity of THERAPY 11:23: [place] MISC) 09 Medical Branch DOCUSATE Yes Take by [facility] SODIUM 6-07 mouth. ity [...] Branch unit tablet CRANBERRY Yes Take by [facility] rs FRUIT 6-07 mouth ity of [...] 09 Medical VITAMIN Branch ORAL) METHYLCELLU Yes [facility] LOSE (FIBER 6-07 ity of THERAPY 11:23: [facility]) Medical Branch DOCUSATE Yes Take [facility] SODIUM 6-07 mouth. ity [...] Branch unit tablet CRANBERRY Yes Take by [facility] rs FRUIT 6-07 mouth ity of EXTRACT 11:23: daily. [place] (CRANBERRY 09 Medical ORAL) Branch CALCIUM Yes Take by [facility] ORAL 6-07 mouth ity of 11:23: daily. [place] [address] Medical Branch DOCOSAHEXAN Yes 1000mg Take 1,000 [facility] OIC 6-07 mg by ity of ACID/EPA 11:23: mouth [place] (FISH OIL 09 daily. Medical ORAL) Branch BIOTIN ORAL Yes Take by Uni vers 6-07 mouth. ity of 11:23: [place] [address] Medical Branch FOLIC ACID Yes Take by [facility] ers ORAL 6-07 mouth ity of 11:23: daily. [place] [address] Medical Branch MULTIVIT Yes Take by [facility] &MINERALS/F 6-07 mouth. ity of ERROUS FUM 11:23: [place] (MULTI 09 Medical VITAMIN Branch ORAL) METHYLCELLU 0 Yes [facility] LOSE (FIBER 6-07 ity of THERAPY 11:23: [facility]) Medical Branch DOCUSATE 0 Yes Take [facility] SODIUM 6-07 mouth. ity [...] unit tablet CRANBERRY 2021-0 Yes Take [facility] FRUIT 6-07 mouth ity [...] [place] [facility] MULTIVIT Yes Take by [facility] &MINERALS/F 6-07 mouth. ity of ERROUS FUM 11:23: [place] (MULTI 09 Medical VITAMIN Branch ORAL) METHYLCELLU 0 Yes [facility] s LOSE (FIBER 6-07 ity of THERAPY 11:23: [place] MISC) 09 Medical Branch DOCUSATE Yes Take by [facility] SODIUM 6-07 mouth. ity [...] unit tablet CRANBERRY 2021-0 Yes Take [facility] FRUIT 6-07 mouth ity [...] 09 Medical VITAMIN Branch ORAL) METHYLCELLU Yes [facility] LOSE (FIBER 6-07 ity of THERAPY 11:23: [place] MISC) 09 Medical Branch DOCUSATE Yes Take by [facility] SODIUM 6-07 mouth. ity [...] 09 Medical VITAMIN Branch ORAL) METHYLCELLU Yes [facility] LOSE (FIBER 6-07 ity of THERAPY 11:23: [facility]) 09 Medical Branch DOCUSATE Yes Take by [facility] SODIUM 6-07 mouth. ity [...] [facility] ORAL 6-07 mouth ity of 11:23: daily. [place] [facility] DOCOSAHEXAN Yes 1000mg Take 1,000 [facility] OIC 6-07 mg by ity of ACID/EPA 11:23: mouth [place] (FISH OIL 09 daily. Medical ORAL) Branch BIOTIN ORAL Yes Take by Uni vers 6-07 mouth. ity of 11:23: [place] [address] Medical Branch FOLIC ACID Yes Take by [facility] ers ORAL 6-07 mouth ity of 11:23: daily. [place] [address] Medical Branch MULTIVIT Yes Take by [facility] s &MINERALS/F 6-07 mouth. ity of ERROUS FUM 11:23: [place] (MULTI 09 Medical VITAMIN Branch ORAL) METHYLCELLU Yes Univer s LOSE (FIBER 6-07 ity of THERAPY 11:23: [facility]) 09 Medical Branch DOCUSATE 0 Yes Take [facility] SODIUM 6-07 mouth. ity [...] Branch unit tablet CRANBERRY Yes Take [facility] FRUIT 6-07 mouth ity [...] Branch unit tablet CRANBERRY Yes Take by [facility] FRUIT 6-07 mouth ity [...] LOSE (FIBER 6-07 ity of THERAPY 11:23: [facility]) 09 Medical Branch DOCUSATE Yes Take by [...] LOSE (FIBER 6-07 ity of THERAPY 11:23: [facility]) 09 Medical Branch DOCUSATE Yes Take by [...] Branch unit tablet CRANBERRY Yes Take by [facility] rs FRUIT 6-07 mouth ity of [...] Uni vers 6-07 mouth. ity of 11:23: [place] [address] Medical Branch FOLIC ACID Yes Take by Univ ers ORAL 6-07 mouth ity of 11:23: daily. [place] [address] Medical Branch MULTIVIT Yes Take by [facility] &MINERALS/F 6-07 mouth. ity of ERROUS FUM 11:23: [place] (MULTI 09 Medical VITAMIN Branch ORAL) METHYLCELLU Yes Univer s LOSE (FIBER 6-07 ity of THERAPY 11:23: [facility]) 09 Medical Branch DOCUSATE Yes Take by [...] Branch unit tablet CRANBERRY Yes Take [facility] FRUIT 6-07 mouth ity [...] [place] [facility] MULTIVIT Yes Take by [facility] s &MINERALS/F 6-07 mouth. ity of ERROUS FUM 11:23: [place] (MULTI 09 Medical VITAMIN Branch ORAL) METHYLCELLU Yes [facility] LOSE (FIBER 6-07 ity of THERAPY 11:23: [place] MISC) Medical Branch DOCUSATE Yes Take by [facility] SODIUM 6-07 mouth. ity [...] Branch unit tablet CRANBERRY Yes Take by [facility] rs FRUIT 6-07 mouth ity of [...] Uni vers 6-07 mouth. ity of 11:23: [place] [address] Medical Branch FOLIC ACID Yes Take by Univ ers ORAL 6-07 mouth ity of 11:23: daily. [place] [address] Medical Branch MULTIVIT Yes Take by Univer s &MINERALS/F 6-07 mouth. ity of ERROUS FUM 11:23: [place] ([place] [address] Medical VITAMIN Branch ORAL) METHYLCELLU Yes Univer s LOSE (FIBER 6-07 ity of THERAPY 11:23: [facility]) 09 Medical Branch DOCUSATE Yes Take by [...] Branch unit tablet CRANBERRY Yes Take by [facility] FRUIT 6-07 mouth ity of EXTRACT 11:23: daily. [place] (CRANBERRY Medical ORAL) Branch CALCIUM Yes Take by [facility] ORAL 6-07 mouth ity of 11:23: daily. [place] [address] Medical Branch DOCOSAHEXAN Yes 1000mg Take 1,000 [facility] OIC 6-07 mg by ity of ACID/EPA 11:23: mouth [place] (FISH OIL 09 daily. Medical ORAL) Branch BIOTIN ORAL Yes Take by Uni vers 6-07 mouth. ity of 11:23: [place] [address] Medical Branch FOLIC ACID Yes Take by [facility] ers ORAL 6-07 mouth ity of 11:23: daily. [place] [address] Medical Branch MULTIVIT Yes Take by Univer s &MINERALS/F 6-07 mouth. ity of ERROUS FUM 11:23: [place] ([place] [address] Medical VITAMIN Branch ORAL) METHYLCELLU Yes Univer s LOSE (FIBER 6-07 ity of THERAPY 11:23: [place] MIS) 09 Medical Branch DOCUSATE Yes Take by [facility] SODIUM 6-07 mouth. ity [...] Branch unit tablet CRANBERRY Yes Take [facility] FRUIT 6-07 mouth ity [...] [place] [facility] MULTIVIT Yes Take by [facility] &MINERALS/F 6-07 mouth. ity of ERROUS FUM 11:23: [place] (MULTI 09 Medical VITAMIN Branch ORAL) METHYLCELLU Yes Univer s LOSE (FIBER 6-07 ity of THERAPY 11:23: [place] MISC) 09 Medical Branch DOCUSATE Yes Take by [facility] SODIUM 6-07 mouth. ity [...] Branch unit tablet CRANBERRY Yes Take by [facility] rs FRUIT 6-07 mouth ity of [...] ORAL 6-07 mouth ity of 11:23: daily. [place] [address] Medical Branch MULTIVIT Yes Take by [facility] &MINERALS/F 6-07 mouth. ity of ERROUS FUM 11:23: [place] (MULTI Medical VITAMIN Branch ORAL) METHYLCELLU 0 Yes [facility] LOSE (FIBER 6-07 ity of THERAPY 11:23: [facility]) Medical Branch DOCUSATE Yes Take by Univer [...] Branch unit tablet CRANBERRY Yes Take by [facility] rs FRUIT 6-07 mouth ity of EXTRACT 11:23: daily. [place] (CRANBERRY 09 Medical ORAL) Branch CALCIUM Yes Take by [facility] ORAL 6-07 mouth ity of 11:23: daily. [place] [address] Medical Branch DOCOSAHEXAN Yes 1000mg Take 1,000 [facility] OIC 6-07 mg by ity of ACID/EPA 11:23: mouth [place] (FISH OIL 09 daily. Medical ORAL) Branch BIOTIN ORAL Yes Take by [facility] vers 6-07 mouth. ity of 11:23: [place] [address] Medical Branch FOLIC ACID Yes Take by [facility] ers ORAL 6-07 mouth ity of 11:23: daily. [place] [address] Medical Branch MULTIVIT Yes Take by [facility] &MINERALS/F 6-07 mouth. ity of ERROUS FUM 11:23: [place] (MULTI Medical VITAMIN Branch ORAL) METHYLCELLU 0 Yes Univer s LOSE (FIBER 6-07 ity of THERAPY 11:23: [facility]) Medical Branch DOCUSATE 0 Yes Take by [facility] SODIUM 6-07 mouth. ity [...] [place] [facility] MULTIVIT Yes Take by [facility] &MINERALS/F 6-07 mouth. ity [...] 09 Medical VITAMIN Branch ORAL) METHYLCELLU Yes [facility] LOSE (FIBER 6-07 ity [...] LOSE (FIBER 6-07 ity of THERAPY 11:23: [facility]) 09 Medical Branch DOCUSATE Yes Take by [...] Branch unit tablet CRANBERRY Yes Take by [facility] rs FRUIT 6-07 mouth ity of [...] Uni vers 6-07 mouth. ity of 11:23: [place] [address] Medical Branch FOLIC ACID Yes Take by [facility] ers ORAL 6-07 mouth ity of 11:23: daily. [place] [facility] MULTIVIT Yes Take by [facility] &MINERALS/F 6-07 mouth. ity of ERROUS FUM 11:23: [place] (MULTI 09 Medical VITAMIN Branch ORAL) METHYLCELLU 0 Yes Univer s LOSE (FIBER 6-07 ity of THERAPY 11:23: [facility]) 09 Medical Branch DOCUSATE 0 Yes Take [...] Branch unit tablet CRANBERRY Yes Take by [facility] rs FRUIT 6-07 mouth ity of [...] [place] [facility] MULTIVIT Yes Take by [facility] s &MINERALS/F 6-07 mouth. ity of ERROUS FUM 11:23: [place] (MULTI 09 Medical VITAMIN Branch ORAL) METHYLCELLU Yes [facility] LOSE (FIBER 6-07 ity of THERAPY 11:23: [place] MISC) 09 Medical Branch DOCUSATE Yes Take by [facility] s SODIUM 6-07 mouth. ity of (COLACE [...] Branch unit tablet CRANBERRY Yes Take by [facility] rs FRUIT 6-07 mouth ity of [...] LOSE (FIBER 6-07 ity of THERAPY 11:23: [facility]) 09 Medical Branch DOCUSATE Yes Take by [...] vers 6-07 mouth. ity of 11:23: [place] 09 Medical Branch FOLIC ACID 0 Yes Take by [facility] ers ORAL 6-01 mouth ity of 11:58: daily. [place] [address] Medical Branch MULTIVIT 0 Yes Take by Univer s &MINERALS/F 6-01 mouth. ity of ERROUS FUM 11:58: [place] (MULTI 16 Medical VITAMIN Branch ORAL) METHYLCELLU 0 Yes Univer s LOSE (FIBER 6- ity of THERAPY 11:58: [facility]) 16 [facility] Branch DOCUSATE Yes Take by [facility] s SODIUM 6-01 mouth. ity of (COLACE 11:58: [place] ORAL) [address] [place] [address] vitamin C Yes 1000mg Take 1,000 Univers with derrell 6-01 mg by ity of hips 11:58: mouth [place] (VITAMIN C) 16 daily. Medica l 1,000 mg Branch tablet cholecalcif Yes 1000U Take 1,000 Univers edmar, 6- Units by ity of vitamin D3, 11:58: mouth [place] (VITAMIN 16 daily. Medical D3) 1,000 Branch unit tablet CRANBERRY Yes Take by [facility] rs FRUIT 6- mouth ity of EXTRACT 11:58: daily. [place] (CRANBERRY 16 Medical ORAL) Chromo CALCIUM Yes Take by [facility] ORAL 6- mouth ity of 11:58: daily. [address] DOCOSAHEXAN Yes 1000mg Take 1,000 [facility] OIC 6-01 mg by ity of ACID/EPA 11:58: mouth [place] (FISH OIL 16 daily. Medical ORAL) Chromo BIOTIN ORAL Yes Take by Uni vers 6-01 mouth. ity of 11:58: [address] metformin Yes [id number] 500mg Take 1 U nivers ER 500 mg 5-31 tablet by ity o f 24 hr 00:00: mouth [place] tablet 00 daily with Medical breakfast. Branch STOP REGULAR METFORMIN. metformin Yes [id number] 500mg Take 1 U nivers ER 500 mg 5-31 tablet by ity o f 24 hr 00:00: mouth [place] tablet 00 daily with Medical breakfast. Branch STOP REGULAR METFORMIN. metformin Yes [id number] 500mg Take 1 U nivers ER 500 mg 5-31 tablet by ity o f 24 hr 00:00: mouth [place] tablet 00 daily with Medical breakfast. Branch STOP REGULAR METFORMIN. metformin Yes [id number] 500mg Take 1 U nivers ER 500 mg 5-31 tablet by ity o f 24 hr 00:00: mouth [place] tablet 00 daily with Medical breakfast. Branch STOP REGULAR METFORMIN. metformin Yes [id number] 500mg Take 1 U nivers ER 500 mg 5-31 tablet by ity o f 24 hr 00:00: mouth [place] tablet 00 daily with Medical breakfast. Branch STOP REGULAR METFORMIN. metformin 2021-0 Yes [id number] 500mg Take 1 U nivers ER 500 mg 5-31 tablet by ity o f 24 hr 00:00: mouth [place] tablet 00 daily with Medical breakfast. Branch STOP REGULAR METFORMIN. metformin 2021-0 Yes [id number] 500mg Take 1 U nivers ER 500 mg 5-31 tablet by ity o f 24 hr 00:00: mouth [place] tablet 00 daily with Medical breakfast. Branch STOP REGULAR METFORMIN. metformin 2021-0 Yes [id number] 500mg Take 1 U nivers ER 500 mg 5-31 tablet by ity o f 24 hr 00:00: mouth [place] tablet 00 daily with Medical breakfast. Branch STOP REGULAR METFORMIN. metformin 2021-0 Yes [id number] 500mg Take 1 U nivers ER 500 mg 5-31 tablet by ity o f 24 hr 00:00: mouth [place] tablet 00 daily with Medical breakfast. Branch STOP REGULAR METFORMIN. metformin 2021-0 Yes [id number] 500mg Take 1 U nivers ER 500 mg 5-31 tablet by ity o f 24 hr 00:00: mouth [place] tablet 00 daily with Medical breakfast. Branch STOP REGULAR METFORMIN. metformin 2021-0 Yes [id number] 500mg Take 1 U nivers ER 500 mg 5-31 tablet by ity o f 24 hr 00:00: mouth [place] tablet 00 daily with Medical breakfast. Branch STOP REGULAR METFORMIN. metformin 2021-0 Yes [id number] 500mg Take 1 U nivers ER 500 mg 5-31 tablet by ity o f 24 hr 00:00: mouth [place] tablet 00 daily with Medical breakfast. Branch STOP REGULAR METFORMIN. metformin 2021-0 Yes [id number] 500mg Take 1 U nivers ER 500 mg 5-31 tablet by ity o f 24 hr 00:00: mouth [place] tablet 00 daily with Medical breakfast. Branch STOP REGULAR METFORMIN. metformin 2021-0 Yes [id number] 500mg Take 1 U nivers ER 500 mg 5-31 tablet by ity o f 24 hr 00:00: mouth [place] tablet 00 daily with Medical breakfast. Branch STOP REGULAR METFORMIN. metformin 2021-0 Yes [id number] 500mg Take 1 U nivers ER 500 mg 5-31 tablet by ity o f 24 hr 00:00: mouth [place] tablet 00 daily with Medical breakfast. Branch STOP REGULAR METFORMIN. metformin 2021-0 Yes [id number] 500mg Take 1 U nivers ER 500 mg 5-31 tablet by ity o f 24 hr 00:00: mouth [place] tablet 00 daily with Medical breakfast. Branch STOP REGULAR METFORMIN. metformin 2021-0 Yes [id number] 500mg Take 1 U nivers ER 500 mg 5-31 tablet by ity o f 24 hr 00:00: mouth [place] tablet 00 daily with Medical breakfast. Branch STOP REGULAR METFORMIN. metformin 2021-0 Yes [id number] 500mg Take 1 U nivers ER 500 mg 5-31 tablet by ity o f 24 hr 00:00: mouth [place] tablet 00 daily with Medical breakfast. Branch STOP REGULAR METFORMIN. metformin 2021-0 Yes [id number] 500mg Take 1 U nivers ER 500 mg 5-31 tablet by ity o f 24 hr 00:00: mouth [place] tablet 00 daily with Medical breakfast. Branch STOP REGULAR METFORMIN. metformin 2021-0 Yes [id number] 500mg Take 1 U nivers ER 500 mg 5-31 tablet by ity o f 24 hr 00:00: mouth [place] tablet 00 daily with Medical breakfast. Branch STOP REGULAR METFORMIN. metformin 2021-0 Yes [id number] 500mg Take 1 U nivers ER 500 mg 5-31 tablet by ity o f 24 hr 00:00: mouth [place] tablet 00 daily with Medical breakfast. Branch STOP REGULAR METFORMIN. metformin 2021-0 Yes [id number] 500mg Take 1 U nivers ER 500 mg 5-31 tablet by ity o f 24 hr 00:00: mouth [place] tablet 00 daily with Medical breakfast. Branch STOP REGULAR METFORMIN. metformin 2021-0 Yes [id number] 500mg Take 1 U nivers ER 500 mg 5-31 tablet by ity o f 24 hr 00:00: mouth [place] tablet 00 daily with Medical breakfast. Branch STOP REGULAR METFORMIN. metformin 2021-0 Yes [id number] 500mg Take 1 U nivers ER 500 mg 5-31 tablet by ity o f 24 hr 00:00: mouth [place] tablet 00 daily with Medical breakfast. Branch STOP REGULAR METFORMIN. metformin 2021-0 Yes [id number] 500mg Take 1 U nivers ER 500 mg 5-31 tablet by ity o f 24 hr 00:00: mouth [place] tablet 00 daily with Medical breakfast. Branch STOP REGULAR METFORMIN. metformin 2021-0 Yes [id number] 500mg Take 1 U nivers ER 500 mg 5-31 tablet by ity o f 24 hr 00:00: mouth [place] tablet 00 daily with Medical breakfast. Branch STOP REGULAR METFORMIN. metformin 2021-0 Yes [id number] 500mg Take 1 U nivers ER 500 mg 5-31 tablet by ity o f 24 hr 00:00: mouth [place] tablet 00 daily with Medical breakfast. Branch STOP REGULAR METFORMIN. metformin 2021-0 Yes [id number] 500mg Take 1 U nivers ER 500 mg 5-31 tablet by ity o f 24 hr 00:00: mouth [place] tablet 00 daily with Medical breakfast. Branch STOP REGULAR METFORMIN. metformin 2021-0 Yes [id number] 500mg Take 1 U nivers ER 500 mg 5-31 tablet by ity o f 24 hr 00:00: mouth [place] tablet 00 daily with Medical breakfast. Branch STOP REGULAR METFORMIN. metformin 2021-0 Yes [id number] 500mg Take 1 U nivers ER 500 mg 5-31 tablet by ity o f 24 hr 00:00: mouth [place] tablet 00 daily with Medical breakfast. Branch STOP REGULAR METFORMIN. metformin 2021-0 Yes [id number] 500mg Take 1 U nivers ER 500 mg 5-31 tablet by ity o f 24 hr 00:00: mouth [place] tablet 00 daily with Medical breakfast. Branch STOP REGULAR METFORMIN. metformin 2021-0 Yes [id number] 500mg Take 1 U nivers ER 500 mg 5-31 tablet by ity o f 24 hr 00:00: mouth [place] tablet 00 daily with Medical breakfast. Branch STOP REGULAR METFORMIN. metformin 2021-0 Yes [id number] 500mg Take 1 U nivers ER 500 mg 5-31 tablet by ity o f 24 hr 00:00: mouth [place] tablet 00 daily with Medical breakfast. Branch STOP REGULAR METFORMIN. metformin 2021-0 Yes [id number] 500mg Take 1 U nivers ER 500 mg 5-31 tablet by ity o f 24 hr 00:00: mouth [place] tablet 00 daily with Medical breakfast. Branch STOP REGULAR METFORMIN. metformin 2021-0 Yes [id number] 500mg Take 1 U nivers ER 500 mg 5-31 tablet by ity o f 24 hr 00:00: mouth [place] tablet 00 daily with Medical breakfast. Branch STOP REGULAR METFORMIN. metformin 2021-0 Yes [id number] 500mg Take 1 U nivers ER 500 mg 5-31 tablet by ity o f 24 hr 00:00: mouth [place] tablet 00 daily with Medical breakfast. Branch STOP REGULAR METFORMIN. metformin 2021-0 Yes [id number] 500mg Take 1 U nivers ER 500 mg 5-31 tablet by ity o f 24 hr 00:00: mouth [place] tablet 00 daily with Medical breakfast. Branch STOP REGULAR METFORMIN. metformin 2021-0 Yes [id number] 500mg Take 1 U nivers ER 500 mg 5-31 tablet by ity o f 24 hr 00:00: mouth [place] tablet 00 daily with Medical breakfast. Branch STOP REGULAR METFORMIN. metformin 2021-0 Yes [id number] 500mg Take 1 U nivers ER 500 mg 5-31 tablet by ity o f 24 hr 00:00: mouth [place] tablet 00 daily with Medical breakfast. Branch STOP REGULAR METFORMIN. metformin 2021-0 Yes [id number] 500mg Take 1 U nivers ER 500 mg 5-31 tablet by ity o f 24 hr 00:00: mouth [place] tablet 00 daily with Medical breakfast. Branch STOP REGULAR METFORMIN. metformin 2021-0 Yes [id number] 500mg Take 1 U nivers ER 500 mg 5-31 tablet by ity o f 24 hr 00:00: mouth [place] tablet 00 daily with Medical breakfast. Branch STOP REGULAR METFORMIN. metformin 2021-0 Yes [id number] 500mg Take 1 U nivers ER 500 mg 5-31 tablet by ity o f 24 hr 00:00: mouth [place] tablet 00 daily with Medical breakfast. Branch STOP REGULAR METFORMIN. metformin 2021-0 Yes [id number] 500mg Take 1 U nivers ER 500 mg 5-31 tablet by ity o f 24 hr 00:00: mouth [place] tablet 00 daily with Medical breakfast. Branch STOP REGULAR METFORMIN. metformin 2021-0 Yes [id number] 500mg Take 1 U nivers ER 500 mg 5-31 tablet by ity o f 24 hr 00:00: mouth [place] tablet 00 daily with Medical breakfast. Branch STOP REGULAR METFORMIN. metformin 2021-0 Yes [id number] 500mg Take 1 U nivers ER 500 mg 5-31 tablet by ity o f 24 hr 00:00: mouth [place] tablet 00 daily with Medical breakfast. Branch STOP REGULAR METFORMIN. metformin 2021-0 Yes [id number] 500mg Take 1 U nivers ER 500 mg 5-31 tablet by ity o f 24 hr 00:00: mouth [place] tablet 00 daily with Medical breakfast. Branch STOP REGULAR METFORMIN. metformin 2021-0 Yes [id number] 500mg Take 1 U nivers ER 500 mg 5-31 tablet by ity o f 24 hr 00:00: mouth [place] tablet 00 daily with Medical breakfast. Branch STOP REGULAR METFORMIN. metformin 2021-0 Yes [id number] 500mg Take 1 U nivers ER 500 mg 5-31 tablet by ity o f 24 hr 00:00: mouth [place] tablet 00 daily with Medical breakfast. Branch STOP REGULAR METFORMIN. metformin 0 2021- No [id number] 500mg Take 1 [facility] ER 500 mg 5-31 10-13 tablet by ity of 24 hr 00:00: 00:00 mouth [place] tablet 00 :00 daily with Medical breakfast. Branch STOP REGULAR METFORMIN. metformin 2021-0 2- No [id number] 500mg Take 1 [facility] ER 500 mg 5-31 10-13 tablet by ity of 24 hr 00:00: 00:00 mouth [place] tablet 00 :00 daily with Medical breakfast. Branch STOP REGULAR METFORMIN. metformin 2021-0 2- No [id number] 500mg Take 1 [facility] ER 500 mg 5-31 10-13 tablet by ity of 24 hr 00:00: 00:00 mouth [place] tablet 00 :00 daily with Medical breakfast. Branch STOP REGULAR METFORMIN. metformin 2021-0 2- No [id number] 500mg Take 1 [facility] ER 500 mg 5-31 10-13 tablet by ity of 24 hr 00:00: 00:00 mouth [place] tablet 00 :00 daily with Medical breakfast. Branch STOP REGULAR METFORMIN. ibuprofen 2021-0 Yes [id number] 600mg Take 1 [facility] 600 mg 5-19 [id number] tablet by ity of tablet 00:00: mouth [place] 00 every 6 Medical (six) Branch hours as needed for Pain (scale 4-6). ibuprofen 2021-0 Yes [id number] 600mg Take 1 [facility] 600 mg 5-19 [id number] tablet by ity of tablet 00:00: mouth [place] 00 every 6 Medical (six) Branch hours as needed for Pain (scale 4-6). ibuprofen 2021-0 Yes [id number] 600mg Take 1 [facility] 600 mg 5-19 [id number] tablet by ity of tablet 00:00: mouth [place] 00 every 6 Medical (six) Branch hours as needed for Pain (scale 4-6). ibuprofen 2022-0 Yes [id number] 600mg Take 1 [facility] 600 mg 5-19 [id number] tablet by ity of tablet 00:00: mouth [place] 00 every 6 Medical (six) Branch hours as needed for Pain (scale 4-6). ibuprofen 2022-0 Yes [id number] 600mg Take 1 [facility] 600 mg 5-19 [id number] tablet by [facility] tablet 00:00: mouth [place] 00 every 6 Medical (six) Branch hours as needed for Pain (scale 4-6). ibuprofen 2022-0 Yes [id number] 600mg Take 1 [facility] 600 mg 5-19 [id number] tablet by [facility] tablet 00:00: mouth [place] 00 every 6 Medical (six) Branch hours as needed for Pain (scale 4-6). ibuprofen 2022-0 Yes [id number] 600mg Take 1 [facility] 600 mg 5-19 [id number] tablet by [facility] tablet 00:00: mouth [place] 00 every 6 Medical (six) Branch hours as needed for Pain (scale 4-6). ibuprofen 2022-0 Yes [id number] 600mg Take 1 [facility] 600 mg 5-19 [id number] tablet by [facility] tablet 00:00: mouth [place] 00 every 6 Medical (six) Branch hours as needed for Pain (scale 4-6). ibuprofen 2022-0 Yes [id number] 600mg Take 1 [facility] 600 mg 5-19 [id number] tablet by [facility] tablet 00:00: mouth [place] 00 every 6 Medical (six) Branch hours as needed for Pain (scale 4-6). ibuprofen 2022-0 Yes [id number] 600mg Take 1 [facility] 600 mg 5-19 [id number] tablet by [facility] tablet 00:00: mouth [place] 00 every 6 Medical (six) Branch hours as needed for Pain (scale 4-6). ibuprofen 2022-0 Yes [id number] 600mg Take 1 [facility] 600 mg 5-19 [id number] tablet by [facility] tablet 00:00: mouth [place] 00 every 6 Medical (six) Branch hours as needed for Pain (scale 4-6). ibuprofen 2022-0 Yes [id number] 600mg Take 1 [facility] 600 mg 5-19 [id number] tablet by [facility] tablet 00:00: mouth [place] 00 every 6 Medical (six) Branch hours as needed for Pain (scale 4-6). ibuprofen 2022-0 Yes [id number] 600mg Take 1 [facility] 600 mg 5-19 [id number] tablet by [facility] tablet 00:00: mouth [place] 00 every 6 Medical (six) Branch hours as needed for Pain (scale 4-6). ibuprofen 2022-0 Yes [id number] 600mg Take 1 [facility] 600 mg 5-19 [id number] tablet by [facility] tablet 00:00: mouth [place] 00 every 6 Medical (six) Branch hours as needed for Pain (scale 4-6). ibuprofen 2022-0 Yes [id number] 600mg Take 1 [facility] 600 mg 5-19 [id number] tablet by [facility] tablet 00:00: mouth [place] 00 every 6 Medical (six) Branch hours as needed for Pain (scale 4-6). ibuprofen 2022-0 Yes [id number] 600mg Take 1 [facility] 600 mg 5-19 [id number] tablet by [facility] tablet 00:00: mouth [place] 00 every 6 Medical (six) Branch hours as needed for Pain (scale 4-6). ibuprofen 2022-0 Yes [id number] 600mg Take 1 [facility] 600 mg 5-19 [id number] tablet by [facility] tablet 00:00: mouth [place] 00 every 6 Medical (six) Branch hours as needed for Pain (scale 4-6). ibuprofen 2022-0 Yes [id number] 600mg Take 1 [facility] 600 mg 5-19 [id number] tablet by [facility] tablet 00:00: mouth [place] 00 every 6 Medical (six) Branch hours as needed for Pain (scale 4-6). ibuprofen 2022-0 Yes [id number] 600mg Take 1 [facility] 600 mg 5-19 [id number] tablet by [facility] tablet 00:00: mouth [place] 00 every 6 Medical (six) Branch hours as needed for Pain (scale 4-6). ibuprofen 2022-0 Yes [id number] 600mg Take 1 [facility] 600 mg 5-19 [id number] tablet by [facility] tablet 00:00: mouth [place] 00 every 6 Medical (six) Branch hours as needed for Pain (scale 4-6). ibuprofen 2022-0 Yes [id number] 600mg Take 1 [facility] 600 mg 5-19 [id number] tablet by [facility] tablet 00:00: mouth [place] 00 every 6 Medical (six) Branch hours as needed for Pain (scale 4-6). ibuprofen 2022-0 Yes [id number] 600mg Take 1 [facility] 600 mg 5-19 [id number] tablet by [facility] tablet 00:00: mouth [place] 00 every 6 Medical (six) Branch hours as needed for Pain (scale 4-6). ibuprofen 2022-0 Yes [id number] 600mg Take 1 [facility] 600 mg 5-19 [id number] tablet by [facility] tablet 00:00: mouth [place] 00 every 6 Medical (six) Branch hours as needed for Pain (scale 4-6). ibuprofen 2022-0 Yes [id number] 600mg Take 1 [facility] 600 mg 5-19 [id number] tablet by [facility] tablet 00:00: mouth [place] 00 every 6 Medical (six) Branch hours as needed for Pain (scale 4-6). ibuprofen 2022-0 Yes [id number] 600mg Take 1 [facility] 600 mg 5-19 [id number] tablet by [facility] tablet 00:00: mouth [place] 00 every 6 Medical (six) Branch hours as needed for Pain (scale 4-6). ibuprofen 2022-0 Yes [id number] 600mg Take 1 [facility] 600 mg 5-19 [id number] tablet by [facility] tablet 00:00: mouth [place] 00 every 6 Medical (six) Branch hours as needed for Pain (scale 4-6). ibuprofen 2022-0 Yes [id number] 600mg Take 1 [facility] 600 mg 5-19 [id number] tablet by [facility] tablet 00:00: mouth [place] 00 every 6 Medical (six) Branch hours as needed for Pain (scale 4-6). ibuprofen 2022-0 Yes [id number] 600mg Take 1 [facility] 600 mg 5-19 [id number] tablet by [facility] tablet 00:00: mouth [place] 00 every 6 Medical (six) Branch hours as needed for Pain (scale 4-6). ibuprofen 2022-0 Yes [id number] 600mg Take 1 [facility] 600 mg 5-19 [id number] tablet by [facility] tablet 00:00: mouth [place] 00 every 6 Medical (six) Branch hours as needed for Pain (scale 4-6). ibuprofen 2022-0 Yes [id number] 600mg Take 1 [facility] 600 mg 5-19 [id number] tablet by [facility] tablet 00:00: mouth [place] 00 every 6 Medical (six) Branch hours as needed for Pain (scale 4-6). ibuprofen 2022-0 Yes [id number] 600mg Take 1 [facility] 600 mg 5-19 [id number] tablet by [facility] tablet 00:00: mouth [place] 00 every 6 Medical (six) Branch hours as needed for Pain (scale 4-6). ibuprofen 2021-0 Yes [id number] 600mg Take 1 [facility] 600 mg 5-19 [id number] tablet by [facility] tablet 00:00: mouth [place] 00 every 6 Medical (six) Branch hours as needed for Pain (scale 4-6). ibuprofen 2021-0 Yes [id number] 600mg Take 1 [facility] 600 mg 5-19 [id number] tablet by [facility] tablet 00:00: mouth [place] 00 every 6 Medical (six) Branch hours as needed for Pain (scale 4-6). ibuprofen 2021-0 Yes [id number] 600mg Take 1 [facility] 600 mg 5-19 [id number] tablet by [facility] tablet 00:00: mouth [place] 00 every 6 Medical (six) Branch hours as needed for Pain (scale 4-6). ibuprofen 2021-0 Yes [id number] 600mg Take 1 [facility] 600 mg 5-19 [id number] tablet by [facility] tablet 00:00: mouth [place] 00 every 6 Medical (six) Branch hours as needed for Pain (scale 4-6). ibuprofen 2021-0 Yes [id number] 600mg Take 1 [facility] 600 mg 5-19 [id number] tablet by [facility] tablet 00:00: mouth [place] 00 every 6 Medical (six) Branch hours as needed for Pain (scale 4-6). ibuprofen 2021-0 2022- No [id number] 600mg Take 1 [facility] 600 mg 5-19 -22 [id number] tablet by [facility] o f tablet 00:00: 00:00 mouth [place] 00 :00 every 6 Medical (six) Branch hours as needed for Pain (scale 4-6). ibuprofen 2021-0 2022- No [id number] 600mg Take 1 [facility] 600 mg 5-19 -22 [id number] tablet by [facility] o f tablet 00:00: 00:00 mouth [place] 00 :00 every 6 Medical (six) Branch hours as needed for Pain (scale 4-6). ibuprofen 202-0 2022- No [id number] 600mg Take 1 [facility] 600 mg 5-19 -22 [id number] tablet by [facility] o f tablet 00:00: 00:00 mouth [place] 00 :00 every 6 Medical (six) Branch hours as needed for Pain (scale 4-6). ibuprofen 2022-0 2022- No [id number] 600mg Take 1 [facility] 600 mg 02-11 [id number] tablet by [facility] o f tablet 00:00: 00:00 mouth [place] 00 :00 every 6 Medical (six) Branch hours as needed for Pain (scale 4-6). ibuprofen 2- No [id number] 600mg Take 1 [facility] 600 mg 02-11 [id number] tablet by [facility] o f tablet 00:00: 00:00 mouth [place] 00 :00 every 6 Medical (six) Branch hours as needed for Pain (scale 4-6). ibuprofen 2021-2021- No [id number] 600mg Take 1 [facility] 600 mg 02-11 [id number] tablet by [facility] o f tablet 00:00: 00:00 mouth [place] 00 :00 every 6 Medical (six) Branch hours as needed for Pain (scale 4-6). topiramate 2021-0 Yes [id number] 50mg Take 2 [facility] 25 mg 5-16 tablets by [facility] of tablet 00:00: [address] (two) Medical times Branch daily. topiramate 2021-0 Yes [id number] 50mg Take 2 [facility] 25 mg 5-16 tablets by [facility] of tablet 00:00: [address] (two) Medical times Branch daily. topiramate 2021-0 Yes [id number] 50mg Take 2 [facility] 25 mg 5-16 tablets by [facility] of tablet 00:00: [address] (two) Medical times Branch daily. topiramate 2021-0 Yes [id number] 50mg Take 2 [facility] 25 mg 5-16 tablets by [facility] of tablet 00:00: [address] (two) Medical times Branch daily. topiramate 2021-0 Yes [id number] 50mg Take 2 [facility] 25 mg 5-16 tablets by [facility] of tablet 00:00: mouth [address] [place] [address] (two) Medical times Branch daily. topiramate 2022-0 Yes [id number] 50mg Take 2 [facility] 25 mg 5-16 tablets by [facility] of tablet 00:00: mouth [address] [place] [address] (two) Medical times Branch daily. topiramate 2022-0 Yes [id number] 50mg Take 2 [facility] 25 mg 5-16 tablets by [facility] of tablet 00:00: mouth [address] [place] [address] (two) Medical times Branch daily. topiramate 2022-0 Yes [id number] 50mg Take 2 [facility] 25 mg 5-16 tablets by [facility] of tablet 00:00: mouth 2 [place] 00 (two) Medical times Branch daily. topiramate 2-0 Yes [id number] 50mg Take 2 [facility] 25 mg 5-16 tablets by [facility] of tablet 00:00: mouth 2 [place] 00 (two) Medical times Branch daily. SUMAtriptan 2-0 Yes [id number] 50mg Take 1 [facility] 50 mg 5-16 tablet by [facility] of tablet 00:00: mouth as [place] 00 needed for Medical Migraine. Branch topiramate 2021-0 Yes [id number] 50mg Take 2 [facility] 25 mg 5-16 tablets by [facility] of tablet 00:00: mouth 2 (two) Medical times Branch daily. SUMAtriptan 2-0 Yes [id number] 50mg Take 1 [facility] 50 mg 5-16 tablet by [facility] of tablet 00:00: mouth as [place] 00 needed for Medical Migraine. Branch topiramate 2021-0 Yes [id number] 50mg Take 2 [facility] 25 mg 5-16 tablets by [facility] of tablet 00:00: mouth 2 (two) Medical times Branch daily. SUMAtriptan 2-0 Yes [id number] 50mg Take 1 [facility] 50 mg 5-16 tablet by [facility] of tablet 00:00: mouth as [place] 00 needed for Medical Migraine. Branch topiramate 2021-0 Yes [id number] 50mg Take 2 [facility] 25 mg 5-16 tablets by [facility] of tablet 00:00: mouth 2 (two) Medical times Branch daily. SUMAtriptan 2-0 Yes [id number] 50mg Take 1 [facility] 50 mg 5-16 tablet by [facility] of tablet 00:00: mouth as [place] 00 needed for Medical Migraine. Branch topiramate 2-0 Yes [id number] 50mg Take 2 [facility] 25 mg 5-16 tablets by [facility] of tablet 00:00: mouth 2 [place] 00 (two) Medical times Branch daily. SUMAtriptan 2022-0 Yes [id number] 50mg Take 1 [facility] 50 mg 5-16 tablet by [facility] of tablet 00:00: mouth as [place] 00 needed for Medical Migraine. Branch topiramate 2-0 Yes [id number] 50mg Take 2 [facility] 25 mg 5-16 tablets by [facility] of tablet 00:00: mouth 2 (two) Medical times Branch daily. SUMAtriptan 2021-0 Yes [id number] 50mg Take 1 [facility] 50 mg 5-16 tablet by [facility] of tablet 00:00: mouth as 00 needed for Medical Migraine. Branch topiramate 2021-0 Yes [id number] 50mg Take 2 [facility] 25 mg 5-16 tablets by [facility] of tablet 00:00: mouth 2 [place] 00 (two) Medical times Branch daily. topiramate 2021-0 Yes [id number] 50mg Take 2 [facility] 25 mg 5-16 tablets by [facility] of tablet 00:00: mouth (two) Medical times Branch daily. topiramate 2021-0 Yes [id number] 50mg Take 2 [facility] 25 mg 5-16 tablets by [facility] of tablet 00:00: mouth [place] (two) Medical times Branch daily. topiramate 2021-0 Yes [id number] 50mg Take 2 [facility] 25 mg 5-16 tablets by [facility] of tablet 00:00: mouth (two) Medical times Branch daily. topiramate 2021-0 Yes [id number] 50mg Take 2 [facility] 25 mg 5-16 tablets by [facility] of tablet 00:00: mouth [place] (two) Medical times Branch daily. topiramate 2021-0 Yes [id number] 50mg Take 2 [facility] 25 mg 5-16 tablets by [facility] of tablet 00:00: mouth [place] (two) Medical times Branch daily. topiramate 2021-0 2- No [id number] 50mg Take 2 [facility] 25 mg 5-16 09-01 tablets by [facility] of tablet 00:00: 00:00 mouth 2 [place] 00 :00 (two) Medical times Branch daily. topiramate 2-0 2022- No [id number] 50mg Take 2 [facility] 25 mg 5-16 09-01 tablets by [facility] of tablet 00:00: 00:00 mouth 2 [place] 00 :00 (two) Medical times Branch daily. topiramate 2-0 2022- No [id number] 50mg Take 2 [facility] 25 mg 5-16 09-01 tablets by [facility] of tablet 00:00: 00:00 mouth 2 [place] 00 :00 (two) Medical times Branch daily. topiramate 2021- No [id number] 50mg Take 2 [facility] 25 mg 5-16 09-01 tablets by [facility] of tablet 00:00: 00:00 mouth 2 [place] 00 :00 (two) Medical times Branch daily. SUMAtriptan 2021- No [id number] 50mg Take 1 [facility] 50 mg 5-16 06-17 tablet by [facility] of tablet 00:00: 00:00 mouth as [place] 00 :00 needed for Medical Migraine. Branch SUMAtriptan 2021- No [id number] 50mg Take 1 [facility] 50 mg 5-16 [...] PadM 5-08 Dose to ity of 00:00: [facility] [place] 00 before Medical meals. [...] PadM 5-08 Dose to ity of 00:00: [facility] [place] 00 before Medical meals. Branch ALCOHOL Yes 1{dose} Apply 1 [facility] ers PADS PadM 5-08 Dose to ity of 00:00: area(s) [place] 00 before Medical meals. Branch ALCOHOL Yes 1{dose} Apply 1 [facility] ers PADS PadM 5-08 Dose to ity of 00:00: [facility] [place] 00 before Medical meals. Branch ALCOHOL 2021-0 Yes 1{dose} Apply 1 [facility] ers PADS PadM 5-08 Dose to ity of 00:00: [facility] [place] 00 before Medical meals. Branch ALCOHOL 2021-0 Yes 1{dose} Apply 1 [facility] ers PADS PadM 5-08 Dose to ity of 00:00: [facility] [place] 00 before Medical meals. Branch ALCOHOL 2021-0 Yes 1{dose} Apply 1 [facility] ers PADS PadM 5-08 Dose to ity of 00:00: [facility] [place] 00 before Medical meals. Branch ALCOHOL 2021-0 Yes 1{dose} Apply 1 [facility] ers PADS PadM 5-08 Dose to ity of 00:00: [facility] [place] 00 before Medical meals. Branch ALCOHOL 2021-0 Yes 1{dose} Apply 1 [facility] ers PADS PadM 5-08 Dose to ity of 00:00: [facility] [place] 00 before Medical meals. Branch ALCOHOL 2021-0 Yes 1{dose} Apply 1 [facility] ers PADS PadM 5-08 Dose to ity of 00:00: [facility] [place] 00 before Medical meals. Branch ALCOHOL 2021-0 Yes 1{dose} Apply 1 [facility] ers PADS PadM 5-08 Dose to ity of 00:00: [facility] [place] 00 before Medical meals. Branch ALCOHOL 2021-0 Yes 1{dose} Apply 1 [facility] ers PADS PadM 5-08 Dose to ity of 00:00: [facility] [place] 00 before Medical meals. Branch ALCOHOL 2021-0 Yes 1{dose} Apply 1 [facility] ers PADS PadM 5-08 Dose to ity of 00:00: [facility] [place] 00 before Medical meals. Branch ALCOHOL 2021-0 Yes 1{dose} Apply 1 [facility] ers PADS PadM 5-08 Dose to ity of 00:00: [facility] [place] 00 before Medical meals. Branch ALCOHOL 2021-0 Yes 1{dose} Apply 1 [facility] ers PADS PadM 5-08 Dose to ity of 00:00: [facility] [place] 00 before Medical meals. Branch ALCOHOL 2021-0 Yes 1{dose} Apply 1 [facility] ers PADS PadM 5-08 Dose to ity of 00:00: [facility] [place] 00 before Medical meals. Branch ALCOHOL [...] PadM 5-08 Dose to ity of 00:00: [facility] [place] 00 before Medical meals. [...] PadM 5-08 Dose to ity of 00:00: [facility] [place] 00 before Medical meals. Branch ALCOHOL Yes 1{dose} Apply 1 [facility] ers PADS PadM 5-08 Dose to ity of 00:00: [facility] [place] 00 before Medical meals. Branch ALCOHOL Yes 1{dose} Apply 1 [facility] ers PADS PadM 5-08 Dose to ity of 00:00: [facility] [place] 00 before Medical meals. Branch ALCOHOL 2021- No 1{dose} Apply 1 [facility] vers PADS PadM 5-08 -22 Dose to ity of 00:00: 00:00 [facility] [place] 00 :00 before Medical meals. Branch ALCOHOL 2021- No 1{dose} Apply 1 [facility] vers PADS PadM 5-08 -22 Dose to ity of 00:00: 00:00 [facility] [place] 00 :00 before Medical meals. Branch ALCOHOL 2021- No 1{dose} Apply 1 [facility] vers PADS PadM 5-08 -22 Dose to ity of 00:00: 00:00 [facility] [place] 00 :00 before Medical meals. Branch ALCOHOL 2021- No 1{dose} Apply 1 [facility] vers PADS PadM 5-08 -22 Dose to ity of 00:00: 00:00 [facility] [place] 00 :00 before Medical meals. Branch ALCOHOL 2021- No 1{dose} Apply 1 [facility] vers PADS PadM 5-08 -22 Dose to ity of 00:00: 00:00 [facility] [place] 00 :00 before Medical meals. Branch ALCOHOL 2021- No 1{dose} Apply 1 [facility] vers PADS PadM 5-08 -22 Dose to ity of 00:00: 00:00 [facility] [place] 00 :00 before Medical meals. Branch pregabalin Yes [id number] 150mg Take 1 [facility] 150 mg 4-29 capsule by ity of capsule 00:00: mouth 3 (three) Medical times Chromo daily. busPIRone Yes [id number] 20mg Take 2 [facility] [place] 10 mg 4-29 tablets by ity of tablet 00:00: mouth 2 (two) Medical times Chromo daily. citalopram Yes [id number] 40mg Take 1 [facility] n[facility] 40 mg 4-29 tablet by ity of tablet 00:00: mouth 00 daily. Medical Branch pregabalin 2021-0 Yes [id number] 150mg Take 1 [facility] 150 mg 4-29 capsule by ity of capsule 00:00: mouth 3 (three) Medical times Branch daily. busPIRone 2021-0 Yes [id number] 20mg Take 2 [facility] [place] 10 mg 4-29 tablets by ity of tablet 00:00: mouth 2 (two) Medical times Branch daily. citalopram 2021-0 Yes [id number] 40mg Take 1 [facility] nivers 40 mg 4-29 tablet by it[facility] of tablet 00:00: mouth 00 daily. Medical Branch pregabalin 0 Yes [id number] 150mg Take 1 [facility] 150 mg 4-29 capsule by ity of capsule 00:00: mouth 3 (three) Medical times Branch daily. busPIRone 2021-0 Yes [id number] 20mg Take 2 [facility] [place] 10 mg 4-29 tablets by [facility] of tablet 00:00: mouth (two) Medical times Branch daily. citalopram 2021-0 Yes [id number] 40mg Take 1 [facility] n[facility] 40 mg 4-29 tablet by [facility] of tablet 00:00: mouth 00 daily. Medical Branch pregabalin 0 Yes [id number] 150mg Take 1 [facility] 150 mg 4-29 capsule by ity of capsule 00:00: mouth 3 (three) Medical times Branch daily. busPIRone 2021-0 Yes [id number] 20mg Take 2 [facility] [place] 10 mg 4-29 tablets by ity of tablet 00:00: mouth (two) Medical times Branch daily. citalopram 2021-0 Yes [id number] 40mg Take 1 [facility] nivers 40 mg 4-29 tablet by ity of tablet 00:00: mouth 00 daily. Medical Branch pregabalin 2021-0 Yes [id number] 150mg Take 1 [facility] 150 mg 4-29 capsule by ity of capsule 00:00: mouth 3 (three) Medical times Branch daily. busPIRone 2021-0 Yes [id number] 20mg Take 2 [facility] [place] 10 mg 4-29 tablets by ity of tablet 00:00: mouth (two) Medical times Branch daily. citalopram 2021-0 Yes [id number] 40mg Take 1 [facility] nivers 40 mg 4-29 tablet by ity of tablet 00:00: mouth daily. Medical Branch pregabalin 2021-0 Yes [id number] 150mg Take 1 [facility] 150 mg 4-29 capsule by ity of capsule 00:00: mouth (three) Medical times Branch daily. busPIRone 2021-0 Yes [id number] 20mg Take 2 [facility] [place] 10 mg 4-29 tablets by ity of tablet 00:00: mouth (two) Medical times Branch daily. citalopram 2021-0 Yes [id number] 40mg Take 1 [facility] nivers 40 mg 4-29 tablet by ity of tablet 00:00: mouth 00 daily. Medical Branch pregabalin 2021-0 Yes [id number] 150mg Take 1 [facility] 150 mg 4-29 capsule by ity of capsule 00:00: mouth (three) Medical times Branch daily. busPIRone 2021-0 Yes [id number] 20mg Take 2 [facility] [place] 10 mg 4-29 tablets by ity of tablet 00:00: mouth (two) Medical times Branch daily. citalopram 2021-0 Yes [id number] 40mg Take 1 [facility] nivers 40 mg 4-29 tablet by ity of tablet 00:00: mouth 00 daily. Medical Branch pregabalin 2021-0 Yes [id number] 150mg Take 1 [facility] 150 mg 4-29 capsule by ity of capsule 00:00: mouth (three) Medical times Branch daily. busPIRone 2021-0 Yes [id number] 20mg Take 2 [facility] [place] 10 mg 4-29 tablets by [facility]y of tablet 00:00: mouth (two) Medical times Branch daily. citalopram 2021-0 Yes [id number] 40mg Take 1 [facility] nivers 40 mg 4-29 tablet by ity of tablet 00:00: mouth 00 daily. Medical Branch pregabalin 2021-0 Yes [id number] 150mg Take 1 [facility] 150 mg 4-29 capsule by ity of capsule 00:00: mouth 3 (three) Medical times Branch daily. busPIRone 2021-0 Yes [id number] 20mg Take 2 [facility] [place] 10 mg 4-29 tablets by ity of tablet 00:00: mouth (two) Medical times Branch daily. citalopram 2021-0 Yes [id number] 40mg Take 1 [facility] nivers 40 mg 4-29 tablet by ity of tablet 00:00: mouth daily. Medical Branch pregabalin 2021-0 Yes [id number] 150mg Take 1 [facility] 150 mg 4-29 capsule by ity of capsule 00:00: mouth 3 (three) Medical times Branch daily. busPIRone 2021-0 Yes [id number] 20mg Take 2 [facility] [place] 10 mg 4-29 tablets by ity of tablet 00:00: mouth (two) Medical times Branch daily. citalopram 2021-0 Yes [id number] 40mg Take 1 [facility] nivers 40 mg 4-29 tablet by ity of tablet 00:00: mouth daily. Medical Branch pregabalin 2021-0 Yes [id number] 150mg Take 1 [facility] 150 mg 4-29 capsule by ity of capsule 00:00: mouth (three) Medical times Branch daily. busPIRone 2021-0 Yes [id number] 20mg Take 2 [facility] [place] 10 mg 4-29 tablets by ity of tablet 00:00: mouth (two) Medical times Branch daily. citalopram 2021-0 Yes [id number] 40mg Take 1 [facility] nivers 40 mg 4-29 tablet by ity of tablet 00:00: mouth daily. Medical Branch pregabalin 2021-0 Yes [id number] 150mg Take 1 [facility] 150 mg 4-29 capsule by ity of capsule 00:00: mouth (three) Medical times Branch daily. busPIRone 2-0 Yes [id number] 20mg Take 2 [facility] [place] 10 mg 4-29 tablets by ity of tablet 00:00: mouth (two) Medical times Branch daily. citalopram 2-0 Yes [id number] 40mg Take 1 [facility] nivers 40 mg 4-29 tablet by ity of tablet 00:00: mouth 00 daily. Medical Branch pregabalin 2022-0 Yes [id number] 150mg Take 1 [facility] 150 mg 4-29 capsule by ity of capsule 00:00: mouth 3 (three) Medical times Branch daily. busPIRone 2021-0 Yes [id number] 20mg Take 2 [facility] [place] 10 mg 4-29 tablets by ity of tablet 00:00: mouth (two) Medical times Branch daily. citalopram 2021-0 Yes [id number] 40mg Take 1 [facility] nivers 40 mg 4-29 tablet by ity of tablet 00:00: mouth daily. Medical Branch pregabalin 2021-0 Yes [id number] 150mg Take 1 [facility] 150 mg 4-29 capsule by ity of capsule 00:00: mouth (three) Medical times Branch daily. busPIRone 2021-0 Yes [id number] 20mg Take 2 [facility] [place] 10 mg 4-29 tablets by ity of tablet 00:00: mouth (two) Medical times Branch daily. citalopram 2021-0 Yes [id number] 40mg Take 1 [facility] n[facility] 40 mg 4-29 tablet by ity of tablet 00:00: mouth daily. Medical Branch pregabalin 2021-0 Yes [id number] 150mg Take 1 [facility] 150 mg 4-29 capsule by ity of capsule 00:00: mouth (three) Medical times Branch daily. busPIRone 2021-0 Yes [id number] 20mg Take 2 [facility] [place] 10 mg 4-29 tablets by ity of tablet 00:00: mouth (two) Medical times Branch daily. citalopram 2021-0 Yes [id number] 40mg Take 1 [facility] n[facility] 40 mg 4-29 tablet by ity of tablet 00:00: mouth daily. Medical Branch pregabalin 2021-0 Yes [id number] 150mg Take 1 [facility] 150 mg 4-29 capsule by ity of capsule 00:00: mouth 3 (three) Medical times Branch daily. busPIRone 2021-0 Yes [id number] 20mg Take 2 [facility] [place] 10 mg 4-29 tablets by ity of tablet 00:00: mouth (two) Medical times Branch daily. citalopram 2022-0 Yes [id number] 40mg Take 1 [facility] n[facility] 40 mg 4-29 tablet by ity of tablet 00:00: mouth 00 daily. Medical Branch pregabalin 2021-0 Yes [id number] 150mg Take 1 [facility] 150 mg 4-29 capsule by ity of capsule 00:00: mouth 3 (three) Medical times Branch daily. busPIRone 2021-0 Yes [id number] 20mg Take 2 [facility] [place] 10 mg 4-29 tablets by ity of tablet 00:00: mouth (two) Medical times Branch daily. citalopram 2021-0 Yes [id number] 40mg Take 1 [facility] n[facility] 40 mg 4-29 tablet by ity of tablet 00:00: mouth 00 daily. Medical Branch pregabalin 2021-0 Yes [id number] 150mg Take 1 [facility] 150 mg 4-29 capsule by ity of capsule 00:00: mouth 3 (three) Medical times Branch daily. busPIRone 2021-0 Yes [id number] 20mg Take 2 [facility] [place] 10 mg 4-29 tablets by ity of tablet 00:00: mouth (two) Medical times Branch daily. citalopram 2021-0 Yes [id number] 40mg Take 1 [facility] n[facility] 40 mg 4-29 tablet by ity of tablet 00:00: mouth 00 daily. Medical Branch pregabalin 2021-0 Yes [id number] 150mg Take 1 [facility] 150 mg 4-29 capsule by ity of capsule 00:00: mouth (three) Medical times Branch daily. busPIRone 2021-0 Yes [id number] 20mg Take 2 [facility] [place] 10 mg 4-29 tablets by ity of tablet 00:00: mouth (two) Medical times Branch daily. citalopram 2021-0 Yes [id number] 40mg Take 1 [facility] nivers 40 mg 4-29 tablet by ity of tablet 00:00: mouth 00 daily. Medical Branch pregabalin 2021-0 Yes [id number] 150mg Take 1 [facility] 150 mg 4-29 capsule by ity of capsule 00:00: mouth 3 (three) Medical times Branch daily. busPIRone 2021-0 Yes [id number] 20mg Take 2 [facility] [place] 10 mg 4-29 tablets by ity of tablet 00:00: mouth (two) Medical times Branch daily. citalopram 2021-0 Yes [id number] 40mg Take 1 [facility] n[facility] 40 mg 4-29 tablet by ity of tablet 00:00: mouth daily. Medical Branch pregabalin 2021-0 Yes [id number] 150mg Take 1 [facility] 150 mg 4-29 capsule by ity of capsule 00:00: mouth 3 (three) Medical times Branch daily. busPIRone 2021-0 Yes [id number] 20mg Take 2 [facility] [place] 10 mg 4-29 tablets by ity of tablet 00:00: mouth (two) Medical times Branch daily. citalopram 2021-0 Yes [id number] 40mg Take 1 [facility] n[facility] 40 mg 4-29 tablet by ity of tablet 00:00: mouth daily. Medical Branch pregabalin 2021-0 Yes [id number] 150mg Take 1 [facility] 150 mg 4-29 capsule by ity of capsule 00:00: mouth (three) Medical times Branch daily. busPIRone 2021-0 Yes [id number] 20mg Take 2 [facility] 10 mg 4-29 tablets by [facility] tablet 00:00: mouth (two) [facility] daily. citalopram 2021-0 Yes [id number] 40mg Take 1 [facility] 40 mg 4-29 tablet by [facility] tablet 00:00: mouth daily. [facility] pregabalin 2021-0 Yes [id number] 150mg Take 1 [facility] 150 mg 4-29 capsule by [facility] capsule 00:00: mouth (three) [facility] times [facility] daily. busPIRone 2021-0 Yes [id number] 20mg Take 2 [facility] 10 mg 4-29 tablets by [facility] tablet 00:00: mouth (two) [facility] times [facility] daily. citalopram 2021-0 Yes [id number] 40mg Take 1 [facility] 40 mg 4-29 tablet by [facility] tablet 00:00: mouth 00 daily. [facility] pregabalin 2021-0 Yes [id number] 150mg Take 1 [facility] 150 mg 4-29 capsule by [facility] capsule 00:00: mouth 3 (three) [facility] times [facility] daily. busPIRone 2021-0 Yes [id number] 20mg Take 2 [facility] 10 mg 4-29 tablets by [facility] tablet 00:00: mouth (two) [facility] times [facility] daily. citalopram 2021-0 Yes [id number] 40mg Take 1 [facility] 40 mg 4-29 tablet by [facility] tablet 00:00: mouth daily. [facility] pregabalin 2021-0 Yes [id number] 150mg Take 1 [facility] 150 mg 4-29 capsule by [facility] capsule 00:00: mouth 3 (three) [facility] times [facility] daily. busPIRone 2021-0 Yes [id number] 20mg Take 2 [facility] 10 mg 4-29 tablets by [facility] tablet 00:00: mouth (two) [facility] times [facility] daily. citalopram 2021-0 Yes [id number] 40mg Take 1 [facility] 40 mg 4-29 tablet by [facility] tablet 00:00: mouth daily. [facility] pregabalin 2021-0 Yes [id number] 150mg Take 1 [facility] 150 mg 4-29 capsule by [facility] capsule 00:00: mouth (three) [facility] times [facility] daily. busPIRone 2021-0 Yes [id number] 20mg Take 2 [facility] 10 mg 4-29 tablets by [facility] tablet 00:00: mouth (two) [facility] times [facility] daily. citalopram 2021-0 Yes [id number] 40mg Take 1 [facility] 40 mg 4-29 tablet by [facility] tablet 00:00: mouth daily. [facility] pregabalin 2021-0 Yes [id number] 150mg Take 1 [facility] 150 mg 4-29 capsule by [facility] capsule 00:00: mouth (three) [facility] times [facility] daily. busPIRone 2-0 Yes [id number] 20mg Take 2 [facility] 10 mg 4-29 tablets by [facility] tablet 00:00: mouth (two) [facility] times [facility] daily. citalopram 2-0 Yes [id number] 40mg Take 1 [facility] 40 mg 4-29 tablet by [facility] tablet 00:00: mouth daily. [facility] pregabalin 2022-0 Yes [id number] 150mg Take 1 [facility] 150 mg 4-29 capsule by [facility] capsule 00:00: mouth 3 (three) [facility] times [facility] daily. busPIRone 2021-0 Yes [id number] 20mg Take 2 [facility] 10 mg 4-29 tablets by [facility] tablet 00:00: mouth (two) [facility] times [facility] daily. citalopram 2021-0 Yes [id number] 40mg Take 1 [facility] 40 mg 4-29 tablet by [facility] tablet 00:00: mouth daily. [facility] pregabalin 2021-0 Yes [id number] 150mg Take 1 [facility] 150 mg 4-29 capsule by [facility] capsule 00:00: mouth (three) [facility] times [facility] daily. busPIRone 2021-0 Yes [id number] 20mg Take 2 [facility] 10 mg 4-29 tablets by [facility] tablet 00:00: mouth (two) [facility] times [facility] daily. citalopram 2021-0 Yes [id number] 40mg Take 1 [facility] 40 mg 4-29 tablet by [facility] tablet 00:00: mouth daily. [facility] pregabalin 2021-0 Yes [id number] 150mg Take 1 [facility] 150 mg 4-29 capsule by [facility] capsule 00:00: mouth (three) [facility] times [facility] daily. busPIRone 2021-0 Yes [id number] 20mg Take 2 [facility] 10 mg 4-29 tablets by [facility] tablet 00:00: mouth (two) [facility] times [facility] daily. citalopram 2021-0 Yes [id number] 40mg Take 1 [facility] 40 mg 4-29 tablet by [facility] tablet 00:00: mouth daily. [facility] pregabalin 2021-0 Yes [id number] 150mg Take 1 [facility] 150 mg 4-29 capsule by [facility] capsule 00:00: mouth (three) [facility] times [facility] daily. busPIRone 2021-0 Yes [id number] 20mg Take 2 [facility] 10 mg 4-29 tablets by [facility] tablet 00:00: mouth (two) [facility] times [facility] daily. citalopram 2021-0 Yes [id number] 40mg Take 1 [facility] 40 mg 4-29 tablet by [facility] tablet 00:00: mouth 00 daily. [facility] pregabalin 2021-0 Yes [id number] 150mg Take 1 [facility] 150 mg 4-29 capsule by [facility] capsule 00:00: mouth 3 (three) [facility] times [facility] daily. busPIRone 2021-0 Yes [id number] 20mg Take 2 [facility] 10 mg 4-29 tablets by [facility] tablet 00:00: mouth (two) [facility] times [facility] daily. citalopram 2021-0 Yes [id number] 40mg Take 1 [facility] 40 mg 4-29 tablet by [facility] tablet 00:00: mouth 00 daily. [facility] pregabalin 2021-0 Yes [id number] 150mg Take 1 [facility] 150 mg 4-29 capsule by [facility] capsule 00:00: mouth (three) [facility] times [facility] daily. busPIRone 2021-0 Yes [id number] 20mg Take 2 [facility] 10 mg 4-29 tablets by [facility] tablet 00:00: mouth (two) [facility] times [facility] daily. citalopram 2021-0 Yes [id number] 40mg Take 1 [facility] 40 mg 4-29 tablet by [facility] tablet 00:00: mouth daily. [facility] pregabalin 2021-0 Yes [id number] 150mg Take 1 [facility] 150 mg 4-29 capsule by [facility] capsule 00:00: mouth (three) [facility] times [facility] daily. busPIRone 2021-0 Yes [id number] 20mg Take 2 [facility] 10 mg 4-29 tablets by [facility] tablet 00:00: mouth (two) [facility] times [facility] daily. citalopram 2021-0 Yes [id number] 40mg Take 1 [facility] 40 mg 4-29 tablet by [facility] tablet 00:00: mouth 00 daily. [facility] pregabalin 2021-0 Yes [id number] 150mg Take 1 [facility] 150 mg 4-29 capsule by [facility] capsule 00:00: mouth 3 (three) [facility] times [facility] daily. busPIRone 2021-0 Yes [id number] 20mg Take 2 [facility] 10 mg 4-29 tablets by [facility] tablet 00:00: mouth 2 (two) [facility] times [facility] daily. citalopram 2021-0 Yes [id number] 40mg Take 1 [facility] 40 mg 4-29 tablet by [facility] tablet 00:00: mouth [place] 00 daily. [facility] pregabalin 2021-0 Yes [id number] 150mg Take 1 [facility] 150 mg 4-29 capsule by [facility] capsule 00:00: mouth 3 00 (three) [facility] times [facility] daily. busPIRone 2021-0 Yes [id number] 20mg Take 2 [facility] 10 mg 4-29 tablets by [facility] tablet 00:00: mouth 2 00 (two) [facility] times [facility] daily. citalopram 2021-0 Yes [id number] 40mg Take 1 [facility] 40 mg 4-29 tablet by [facility] tablet 00:00: mouth [place] 00 daily. [facility] pregabalin 2021-0 Yes [id number] 150mg Take 1 [facility] 150 mg 4-29 capsule by [facility] capsule 00:00: mouth 3 (three) [facility] times [facility] daily. busPIRone 2021-0 Yes [id number] 20mg Take 2 [facility] 10 mg 4-29 tablets by [facility] tablet 00:00: mouth 2 (two) [facility] times [facility] daily. citalopram 2021-0 Yes [id number] 40mg Take 1 [facility] 40 mg 4-29 tablet by [facility] tablet 00:00: mouth [place] 00 daily. [facility] citalopram 2021-0 Yes [id number] 40mg Take 1 [facility] 40 mg 4-29 tablet by [facility] tablet 00:00: mouth [place] 00 daily. [facility] citalopram 2021-0 Yes [id number] 40mg Take 1 [facility] 40 mg 4-29 tablet by [facility] tablet 00:00: mouth [place] 00 daily. [facility] citalopram 2021-0 Yes [id number] 40mg Take 1 [facility] 40 mg 4-29 tablet by [facility] tablet 00:00: mouth [place] 00 daily. [facility] citalopram 2021-0 Yes [id number] 40mg Take 1 [facility] 40 mg 4-29 tablet by [facility] tablet 00:00: mouth [place] 00 daily. [facility] citalopram 2022-0 Yes [id number] 40mg Take 1 [facility] 40 mg 4-29 tablet by [facility] tablet 00:00: mouth [place] 00 daily. [facility] citalopram 0 Yes [id number] 40mg Take 1 [facility] 40 mg 4-29 tablet by [facility] tablet 00:00: mouth [place] 00 daily. [facility] citalopram 0 Yes [id number] 40mg Take 1 [facility] 40 mg 4-29 tablet by [facility] tablet 00:00: mouth [place] 00 daily. [facility] citalopram 0 Yes [id number] 40mg Take 1 [facility] 40 mg 4-29 tablet by [facility] tablet 00:00: mouth [place] 00 daily. [facility] citalopram 0 Yes [id number] 40mg Take 1 [facility] 40 mg 4-29 tablet by [facility] tablet 00:00: mouth [place] 00 daily. [facility] citalopram 0 Yes [id number] 40mg Take 1 [facility] 40 mg 4-29 tablet by [facility] tablet 00:00: mouth [place] 00 daily. [facility] citalopram 0 Yes [id number] 40mg Take 1 [facility] 40 mg 4-29 tablet by [facility] tablet 00:00: mouth [place] 00 daily. [facility] citalopram Yes [id number] 40mg Take 1 [facility] 40 mg 4-29 tablet by [facility] tablet 00:00: mouth [place] 00 daily. [facility] citalopram 0 Yes [id number] 40mg Take 1 [facility] 40 mg 4-29 tablet by [facility] tablet 00:00: mouth [place] 00 daily. [facility] citalopram 0 Yes [id number] 40mg Take 1 [facility] 40 mg 4-29 tablet by [facility] tablet 00:00: mouth [place] 00 daily. [facility] citalopram 0 Yes [id number] 40mg Take 1 [facility] 40 mg 4-29 tablet by [facility] tablet 00:00: mouth [place] 00 daily. [facility] citalopram 0 Yes [id number] 40mg Take 1 [facility] 40 mg 4-29 tablet by [facility] tablet 00:00: mouth [place] 00 daily. [facility] citalopram 0 Yes [id number] 40mg Take 1 [facility] 40 mg 4-29 tablet by [facility] tablet 00:00: mouth [place] 00 daily. [facility] citalopram 0 Yes [id number] 40mg Take 1 [facility] 40 mg 4-29 tablet by [facility] tablet 00:00: mouth [place] 00 daily. [facility] citalopram 0 Yes [id number] 40mg Take 1 [facility] 40 mg 4-29 tablet by [facility] tablet 00:00: mouth [place] 00 daily. [facility] citalopram 0 Yes [id number] 40mg Take 1 [facility] 40 mg 4-29 tablet by [facility] tablet 00:00: mouth [place] 00 daily. [facility] citalopram 0 Yes [id number] 40mg Take 1 [facility] 40 mg 4-29 tablet by [facility] tablet 00:00: mouth [place] 00 daily. [facility] citalopram 0 Yes [id number] 40mg Take 1 [facility] 40 mg 4-29 tablet by [facility] tablet 00:00: mouth [place] 00 daily. [facility] citalopram 0 Yes [id number] 40mg Take 1 [facility] 40 mg 4-29 tablet by [facility] tablet 00:00: mouth [place] 00 daily. [facility] citalopram Yes [id number] 40mg Take 1 [facility] 40 mg 4-29 tablet by [facility] tablet 00:00: mouth [place] 00 daily. [facility] citalopram 0 Yes [id number] 40mg Take 1 [facility] 40 mg 4-29 tablet by [facility] tablet 00:00: mouth [place] 00 daily. [facility] citalopram 0 Yes [id number] 40mg Take 1 [facility] 40 mg 4-29 tablet by [facility] tablet 00:00: mouth [place] 00 daily. [facility] citalopram 0 Yes [id number] 40mg Take 1 [facility] 40 mg 4-29 tablet by [facility] tablet 00:00: mouth [place] 00 daily. [facility] citalopram 0 Yes [id number] 40mg Take 1 [facility] 40 mg 4-29 tablet by [facility] tablet 00:00: mouth [place] 00 daily. [facility] citalopram 0 Yes [id number] 40mg Take 1 [facility] 40 mg 4-29 tablet by [facility] tablet 00:00: mouth [place] 00 daily. [facility] citalopram 0 Yes [id number] 40mg Take 1 [facility] 40 mg 4-29 tablet by [facility] tablet 00:00: mouth [place] 00 daily. [facility] citalopram 0 Yes [id number] 40mg Take 1 [facility] 40 mg 4-29 tablet by [facility] tablet 00:00: mouth [place] 00 daily. [facility] citalopram 0 Yes [id number] 40mg Take 1 [facility] 40 mg 4-29 tablet by [facility] tablet 00:00: mouth [place] 00 daily. [facility] citalopram 0 Yes [id number] 40mg Take 1 [facility] 40 mg 4-29 tablet by [facility] tablet 00:00: mouth [place] 00 daily. [facility] citalopram 0 Yes [id number] 40mg Take 1 [facility] 40 mg 4-29 tablet by [facility] tablet 00:00: mouth [place] 00 daily. [facility] citalopram 0 Yes [id number] 40mg Take 1 [facility] 40 mg 4-29 tablet by [facility] tablet 00:00: mouth [place] 00 daily. [facility] citalopram 0 Yes [id number] 40mg Take 1 [facility] 40 mg 4-29 tablet by [facility] tablet 00:00: mouth [place] 00 daily. [facility] citalopram 0 Yes [id number] 40mg Take 1 [facility] 40 mg 4-29 tablet by [facility] tablet 00:00: mouth [place] 00 daily. [facility] citalopram 0 Yes [id number] 40mg Take 1 [facility] 40 mg 4-29 tablet by [facility] tablet 00:00: mouth [place] 00 daily. [facility] citalopram 0 Yes [id number] 40mg Take 1 [facility] 40 mg 4-29 tablet by [facility] tablet 00:00: mouth [place] 00 daily. [facility] citalopram 0 Yes [id number] 40mg Take 1 [facility] 40 mg 4-29 tablet by [facility] tablet 00:00: mouth [place] 00 daily. [facility] citalopram 2021-0 Yes [id number] 40mg Take 1 [facility] 40 mg 4-29 tablet by [facility] tablet 00:00: mouth [place] 00 daily. [facility] citalopram 2021-0 Yes [id number] 40mg Take 1 [facility] 40 mg 4-29 tablet by [facility] tablet 00:00: mouth [place] 00 daily. [facility] citalopram 2021-0 Yes [id number] 40mg Take 1 [facility] 40 mg 4-29 tablet by [facility] tablet 00:00: mouth [place] 00 daily. [facility] citalopram 2021-0 Yes [id number] 40mg Take 1 [facility] 40 mg 4-29 tablet by [facility] tablet 00:00: mouth [place] 00 daily. [facility] citalopram 0 Yes [id number] 40mg Take 1 [facility] 40 mg 4-29 tablet by [facility] tablet 00:00: mouth [place] 00 daily. [facility] citalopram 0 Yes [id number] 40mg Take 1 [facility] 40 mg 4-29 tablet by [facility] tablet 00:00: mouth [place] 00 daily. [facility] citalopram 0 Yes [id number] 40mg Take 1 [facility] 40 mg 4-29 tablet by [facility] tablet 00:00: mouth [place] 00 daily. [facility] citalopram 0 Yes [id number] 40mg Take 1 [facility] 40 mg 4-29 tablet by [facility] tablet 00:00: mouth [place] 00 daily. [facility] citalopram 2021-0 Yes [id number] 40mg Take 1 [facility] 40 mg 4-29 tablet by [facility] tablet 00:00: mouth [place] 00 daily. [facility] citalopram 2021-0 Yes [id number] 40mg Take 1 [facility] 40 mg 4-29 tablet by [facility] tablet 00:00: mouth [place] 00 daily. [facility] citalopram 2021-0 Yes [id number] 40mg Take 1 [facility] 40 mg 4-29 tablet by [facility] tablet 00:00: mouth [place] 00 daily. [facility] citalopram 2021-0 Yes [id number] 40mg Take 1 [facility] 40 mg 4-29 tablet by [facility] tablet 00:00: mouth [place] 00 daily. [facility] citalopram 0 Yes [id number] 40mg Take 1 [facility] 40 mg 4-29 tablet by [facility] tablet 00:00: mouth [place] 00 daily. [facility] citalopram 0 Yes [id number] 40mg Take 1 [facility] 40 mg 4-29 tablet by [facility] tablet 00:00: mouth [place] 00 daily. [facility] citalopram 2021-0 Yes [id number] 40mg Take 1 [facility] 40 mg 4-29 tablet by [facility] tablet 00:00: mouth [place] 00 daily. [facility] citalopram 0 Yes [id number] 40mg Take 1 [facility] 40 mg 4-29 tablet by [facility] tablet 00:00: mouth [place] 00 daily. [facility] citalopram 0 Yes [id number] 40mg Take 1 [facility] 40 mg 4-29 tablet by [facility] tablet 00:00: mouth [place] 00 daily. [facility] citalopram 0 Yes [id number] 40mg Take 1 [facility] 40 mg 4-29 tablet by [facility] tablet 00:00: mouth [place] 00 daily. [facility] citalopram 0 Yes [id number] 40mg Take 1 [facility] 40 mg 4-29 tablet by [facility] tablet 00:00: mouth [place] 00 daily. [facility] citalopram 0 Yes [id number] 40mg Take 1 [facility] 40 mg 4-29 tablet by [facility] tablet 00:00: mouth [place] 00 daily. [facility] citalopram 0 Yes [id number] 40mg Take 1 [facility] 40 mg 4-29 tablet by [facility] tablet 00:00: mouth [place] 00 daily. [facility] citalopram 0 Yes [id number] 40mg Take 1 [facility] 40 mg 4-29 tablet by [facility] tablet 00:00: mouth [place] 00 daily. [facility] citalopram 0 Yes [id number] 40mg Take 1 [facility] 40 mg 4-29 tablet by [facility] tablet 00:00: mouth [place] 00 daily. [facility] citalopram 2021-0 Yes [id number] 40mg Take 1 [facility] 40 mg 4-29 tablet by [facility] tablet 00:00: mouth [place] 00 daily. [facility] citalopram 0 Yes [id number] 40mg Take 1 [facility] 40 mg 4-29 tablet by [facility] tablet 00:00: mouth [place] 00 daily. [facility] citalopram 0 Yes [id number] 40mg Take 1 [facility] 40 mg 4-29 tablet by [facility] tablet 00:00: mouth [place] 00 daily. [facility] citalopram 0 Yes [id number] 40mg Take 1 [facility] 40 mg 4-29 tablet by [facility] tablet 00:00: mouth [place] 00 daily. [facility] citalopram 0 Yes [id number] 40mg Take 1 [facility] 40 mg 4-29 tablet by [facility] tablet 00:00: mouth [place] 00 daily. [facility] citalopram 0 Yes [id number] 40mg Take 1 [facility] 40 mg 4-29 tablet by [facility] tablet 00:00: mouth [place] 00 daily. [facility] citalopram 0 Yes [id number] 40mg Take 1 [facility] 40 mg 4-29 tablet by [facility] tablet 00:00: mouth [place] 00 daily. [facility] citalopram 0 Yes [id number] 40mg Take 1 [facility] 40 mg 4-29 tablet by [facility] tablet 00:00: mouth [place] 00 daily. [facility] citalopram 0 Yes [id number] 40mg Take 1 [facility] 40 mg 4-29 tablet by [facility] tablet 00:00: mouth [place] 00 daily. [facility] citalopram 0 Yes [id number] 40mg Take 1 [facility] 40 mg 4-29 tablet by [facility] tablet 00:00: mouth [place] 00 daily. [facility] citalopram 0 Yes [id number] 40mg Take 1 [facility] 40 mg 4-29 tablet by [facility] tablet 00:00: mouth [place] 00 daily. [facility] citalopram 0 Yes [id number] 40mg Take 1 [facility] 40 mg 4-29 tablet by [facility] tablet 00:00: mouth [place] 00 daily. [facility] citalopram 0 Yes [id number] 40mg Take 1 [facility] 40 mg 4-29 tablet by [facility] tablet 00:00: mouth [place] 00 daily. [facility] citalopram 0 Yes [id number] 40mg Take 1 [facility] 40 mg 4-29 tablet by [facility] tablet 00:00: mouth [place] 00 daily. [facility] citalopram 0 Yes [id number] 40mg Take 1 [facility] 40 mg 4-29 tablet by [facility] tablet 00:00: mouth [place] 00 daily. [facility] citalopram 0 Yes [id number] 40mg Take 1 [facility] 40 mg 4-29 tablet by [facility] tablet 00:00: mouth [place] 00 daily. [facility] citalopram 0 Yes [id number] 40mg Take 1 [facility] 40 mg 4-29 tablet by [facility] tablet 00:00: mouth [place] 00 daily. [facility] citalopram Yes [id number] 40mg Take 1 [facility] 40 mg 4-29 tablet by [facility] tablet 00:00: mouth [place] 00 daily. [facility] citalopram Yes [id number] 40mg Take 1 [facility] 40 mg 4-29 tablet by [facility] tablet 00:00: mouth [place] 00 daily. [facility] citalopram Yes [id number] 40mg Take 1 [facility] 40 mg 4-29 tablet by [facility] tablet 00:00: mouth [place] 00 daily. [facility] citalopram Yes [id number] 40mg Take 1 [facility] 40 mg 4-29 tablet by [facility] tablet 00:00: mouth [place] 00 daily. [facility] citalopram 0 Yes [id number] 40mg Take 1 [facility] 40 mg 4-29 tablet by [facility] tablet 00:00: mouth [place] 00 daily. [facility] citalopram 0 Yes [id number] 40mg Take 1 [facility] 40 mg 4-29 tablet by [facility] tablet 00:00: mouth [place] 00 daily. [facility] citalopram 0 Yes [id number] 40mg Take 1 [facility] 40 mg 4-29 tablet by [facility] tablet 00:00: mouth [place] 00 daily. [facility] citalopram 0 Yes [id number] 40mg Take 1 [facility] 40 mg 4-29 tablet by [facility] tablet 00:00: mouth [place] 00 daily. [facility] citalopram 0 Yes [id number] 40mg Take 1 [facility] 40 mg 4-29 tablet by [facility] tablet 00:00: mouth [place] 00 daily. [facility] citalopram 0 Yes [id number] 40mg Take 1 [facility] 40 mg 4-29 tablet by [facility] tablet 00:00: mouth [place] 00 daily. [facility] citalopram 0 Yes [id number] 40mg Take 1 [facility] 40 mg 4-29 tablet by [facility] tablet 00:00: mouth [place] 00 daily. [facility] citalopram 0 Yes [id number] 40mg Take 1 [facility] 40 mg 4-29 tablet by [facility] tablet 00:00: mouth [place] 00 daily. [facility] citalopram Yes [id number] 40mg Take 1 [facility] 40 mg 4-29 tablet by [facility] tablet 00:00: mouth [place] 00 daily. [facility] citalopram 0 Yes [id number] 40mg Take 1 [facility] 40 mg 4-29 tablet by [facility] tablet 00:00: mouth [place] 00 daily. [facility] citalopram 0 Yes [id number] 40mg Take 1 [facility] 40 mg 4-29 tablet by [facility] tablet 00:00: mouth [place] 00 daily. [facility] citalopram Yes [id number] 40mg Take 1 [facility] 40 mg 4-29 tablet by [facility] tablet 00:00: mouth [place] 00 daily. [facility] citalopram 0 Yes [id number] 40mg Take 1 [facility] 40 mg 4-29 tablet by [facility] tablet 00:00: mouth [place] 00 daily. [facility] pregabalin 0 Yes [id number] 150mg Take 1 [facility] 150 mg 4-29 capsule by [facility] capsule 00:00: mouth 3 [place] 00 (three) [facility] times [facility] daily. busPIRone 0 Yes [id number] 20mg Take 2 [facility] 10 mg 4-29 tablets by [facility] tablet 00:00: mouth 2 [place] 00 (two) [facility] times [facility] daily. citalopram 2022-0 Yes [id number] 40mg Take 1 [facility] 40 mg 4-29 tablet by [facility] tablet 00:00: mouth 00 daily. [facility] pregabalin 2021-0 Yes [id number] 150mg Take 1 [facility] 150 mg 4-29 capsule by [facility] capsule 00:00: mouth 3 (three) [facility] times [facility] daily. busPIRone 2021-0 Yes [id number] 20mg Take 2 [facility] 10 mg 4-29 tablets by [facility] tablet 00:00: mouth (two) [facility] times [facility] daily. citalopram 2021-0 Yes [id number] 40mg Take 1 [facility] 40 mg 4-29 tablet by [facility] tablet 00:00: mouth 00 daily. [facility] pregabalin 2021-0 Yes [id number] 150mg Take 1 [facility] 150 mg 4-29 capsule by [facility] capsule 00:00: mouth 3 (three) [facility] times [facility] daily. busPIRone 2021-0 Yes [id number] 20mg Take 2 [facility] 10 mg 4-29 tablets by [facility] tablet 00:00: mouth (two) [facility] times [facility] daily. citalopram 2021-0 Yes [id number] 40mg Take 1 [facility] 40 mg 4-29 tablet by [facility] tablet 00:00: mouth 00 daily. [facility] pregabalin 2021-0 Yes [id number] 150mg Take 1 [facility] 150 mg 4-29 capsule by [facility] capsule 00:00: mouth (three) [facility] times [facility] daily. busPIRone 2021-0 Yes [id number] 20mg Take 2 [facility] 10 mg 4-29 tablets by [facility] tablet 00:00: mouth (two) [facility] times [facility] daily. citalopram 2021-0 Yes [id number] 40mg Take 1 [facility] 40 mg 4-29 tablet by [facility] tablet 00:00: mouth 00 daily. [facility] pregabalin 2021-0 Yes [id number] 150mg Take 1 [facility] 150 mg 4-29 capsule by [facility] capsule 00:00: mouth 3 (three) [facility] times [facility] daily. busPIRone 2021-0 Yes [id number] 20mg Take 2 [facility] 10 mg 4-29 tablets by [facility] tablet 00:00: mouth (two) [facility] times [facility] daily. citalopram 2021-0 Yes [id number] 40mg Take 1 [facility] 40 mg 4-29 tablet by [facility] tablet 00:00: mouth daily. [facility] pregabalin 2021-0 Yes [id number] 150mg Take 1 [facility] 150 mg 4-29 capsule by [facility] capsule 00:00: mouth 3 (three) [facility] times [facility] daily. busPIRone 2021-0 Yes [id number] 20mg Take 2 [facility] 10 mg 4-29 tablets by [facility] tablet 00:00: mouth (two) [facility] times [facility] daily. citalopram 2021-0 Yes [id number] 40mg Take 1 [facility] 40 mg 4-29 tablet by [facility] tablet 00:00: mouth daily. [facility] pregabalin 2021-0 Yes [id number] 150mg Take 1 [facility] 150 mg 4-29 capsule by [facility] capsule 00:00: mouth (three) [facility] times [facility] daily. busPIRone 2021-0 Yes [id number] 20mg Take 2 [facility] 10 mg 4-29 tablets by [facility] tablet 00:00: mouth (two) [facility] times [facility] daily. citalopram 2021-0 Yes [id number] 40mg Take 1 [facility] 40 mg 4-29 tablet by [facility] tablet 00:00: mouth daily. [facility] pregabalin 2021-0 Yes [id number] 150mg Take 1 [facility] 150 mg 4-29 capsule by [facility] capsule 00:00: mouth (three) [facility] times [facility] daily. busPIRone 2021-0 Yes [id number] 20mg Take 2 [facility] 10 mg 4-29 tablets by [facility] tablet 00:00: mouth (two) [facility] times [facility] daily. citalopram 2021-0 Yes [id number] 40mg Take 1 [facility] 40 mg 4-29 tablet by [facility] tablet 00:00: mouth 00 daily. [facility] pregabalin 2021-0 Yes [id number] 150mg Take 1 [facility] 150 mg 4-29 capsule by [facility] capsule 00:00: mouth 3 (three) [facility] times [facility] daily. busPIRone 2021-0 Yes [id number] 20mg Take 2 [facility] 10 mg 4-29 tablets by [facility] tablet 00:00: mouth 2 (two) [facility] times [facility] daily. citalopram 2021-0 Yes [id number] 40mg Take 1 [facility] 40 mg 4-29 tablet by [facility] tablet 00:00: mouth 00 daily. [facility] pregabalin 2021-0 Yes [id number] 150mg Take 1 [facility] 150 mg 4-29 capsule by [facility] capsule 00:00: mouth 3 00 (three) [facility] times [facility] daily. busPIRone 2021-0 Yes [id number] 20mg Take 2 [facility] 10 mg 4-29 tablets by [facility] tablet 00:00: mouth 2 (two) [facility] times [facility] daily. citalopram 2021-0 Yes [id number] 40mg Take 1 [facility] 40 mg 4-29 tablet by [facility] tablet 00:00: mouth 00 daily. [facility] pregabalin 2021-0 Yes [id number] 150mg Take 1 [facility] 150 mg 4-29 capsule by [facility] capsule 00:00: mouth 3 (three) [facility] times [facility] daily. busPIRone 2021-0 Yes [id number] 20mg Take 2 [facility] 10 mg 4-29 tablets by [facility] tablet 00:00: mouth 2 (two) [facility] times [facility] daily. citalopram 2021-0 Yes [id number] 40mg Take 1 [facility] 40 mg 4-29 tablet by [facility] tablet 00:00: mouth 00 daily. [facility] pregabalin 2021-0 2021- No [id number] 150mg Take 1 [facility] 150 mg 4-29 10-13 capsule by [facility] capsule 00:00: 00:00 mouth 3 [place] 00 :00 (three) [facility] times [facility] daily. busPIRone 2021-0 2- No [id number] 20mg Take 2 [facility] 10 mg 4-29 10-13 tablets by [facility] tablet 00:00: 00:00 mouth 2 [place] 00 :00 (two) [facility] times [facility] daily. pregabalin 2021-0 2- No [id number] 150mg Take 1 [facility] 150 mg 4-29 10-13 capsule by [facility] capsule 00:00: 00:00 mouth 3 [place] 00 :00 (three) [facility] times [facility] daily. busPIRone 2021-2021- No [id number] 20mg Take 2 [facility] 10 mg 4-29 10-13 tablets by [facility] tablet 00:00: 00:00 mouth 2 [place] 00 :00 (two) [facility] times [facility] daily. pregabalin 2021-2021- No [id number] 150mg Take 1 [facility] 150 mg 4-29 10-13 capsule by [facility] capsule 00:00: 00:00 mouth 3 [place] 00 :00 (three) [facility] times [facility] daily. busPIRone 2021-2021- No [id number] 20mg Take 2 [facility] 10 mg 4-29 10-13 tablets by [facility] tablet 00:00: 00:00 mouth 2 [place] 00 :00 (two) [facility] times [facility] daily. pregabalin 2021-2021- No [id number] 150mg Take 1 [facility] 150 mg 4-29 10-13 capsule by ity of capsule 00:00: 00:00 mouth 3 [place] 00 :00 (three) Medical times Branch daily. busPIRone 2021-2021- No [id number] 20mg Take 2 U nivers 10 mg 4-29 10-13 tablets by ity of tablet 00:00: 00:00 mouth 2 [place] 00 :00 (two) Medical times Branch daily. pregabalin 2021-2021- No [id number] 150mg Take 1 [facility] 150 mg 4-29 10-13 capsule by ity of capsule 00:00: 00:00 mouth 3 [place] 00 :00 (three) Medical times Branch daily. busPIRone 2021-2021- No [id number] 20mg Take 2 U nivers 10 mg 4-29 10-13 tablets by ity of tablet 00:00: 00:00 mouth 2 [place] 00 :00 (two) Medical times Branch daily. pregabalin 2021-0 2021- No [id number] 150mg Take 1 [facility] 150 mg 4-29 10-13 capsule by ity of capsule 00:00: 00:00 mouth 3 [place] 00 :00 (three) Medical times Branch daily. busPIRone 2021-0 2021- No [id number] 20mg Take 2 U nivers 10 mg 4-29 10-13 tablets by ity of tablet 00:00: 00:00 mouth 2 [place] 00 :00 (two) Medical times Branch daily. amitriptyli 2021- No [id number] 100mg Take 2 [facility] ne 50 mg 4-29 05-24 tablets by ity of tablet 00:00: 00:00 mouth at [place] 00 :00 bedtime. Medical Branch amitriptyli 2021- No [id number] 100mg Take 2 [facility] ne 50 mg 4-29 05-24 tablets by ity of tablet 00:00: 00:00 mouth at [place] 00 :00 bedtime. Medical Branch pantoprazol Yes [id number] 40mg Take 1 [facility] e 40 mg EC 4-04 tablet by ity of tablet 00:00: mouth [place] 00 daily. Medical Branch pantoprazol Yes [id number] 40mg Take 1 [facility] e 40 mg EC 4-04 tablet by ity of tablet 00:00: mouth [place] 00 daily. Medical Branch pantoprazol Yes [id number] 40mg Take 1 [facility] e 40 mg EC 4-04 tablet by ity of tablet 00:00: mouth [place] 00 daily. Medical Branch pantoprazol Yes [id number] 40mg Take 1 [facility] e 40 mg EC 4-04 tablet by ity of tablet 00:00: mouth [place] 00 daily. Medical Branch pantoprazol Yes [id number] 40mg Take 1 [facility] e 40 mg EC 4-04 tablet by ity of tablet 00:00: mouth [place] 00 daily. Medical Branch pantoprazol Yes [id number] 40mg Take 1 [facility] e 40 mg EC 4-04 tablet by ity of tablet 00:00: mouth [place] 00 daily. Medical Branch pantoprazol Yes [id number] 40mg Take 1 [facility] e 40 mg EC 4-04 tablet by ity of tablet 00:00: mouth [place] 00 daily. Medical Branch pantoprazol Yes [id number] 40mg Take 1 [facility] e 40 mg EC 4-04 tablet by ity of tablet 00:00: mouth [place] 00 daily. Medical Branch pantoprazol Yes [id number] 40mg Take 1 [facility] e 40 mg EC 4-04 tablet by ity of tablet 00:00: mouth [place] 00 daily. Medical Branch pantoprazol 2021-0 Yes [id number] 40mg Take 1 [facility] e 40 mg EC 4-04 tablet by ity of tablet 00:00: mouth [place] 00 daily. Medical Branch pantoprazol 2021-0 Yes [id number] 40mg Take 1 [facility] e 40 mg EC 4-04 tablet by ity of tablet 00:00: mouth [place] 00 daily. Medical Branch pantoprazol 2021-0 Yes [id number] 40mg Take 1 [facility] e 40 mg EC 4-04 tablet by ity of tablet 00:00: mouth [place] 00 daily. Medical Branch pantoprazol 2021-0 Yes [id number] 40mg Take 1 [facility] e 40 mg EC 4-04 tablet by ity of tablet 00:00: mouth [place] 00 daily. Medical Branch pantoprazol 2021- Yes [id number] 40mg Take 1 [facility] e 40 mg EC 4-04 tablet by ity of tablet 00:00: mouth [place] 00 daily. Medical Branch pantoprazol 2021-0 Yes [id number] 40mg Take 1 [facility] e 40 mg EC 4-04 tablet by ity of tablet 00:00: mouth [place] 00 daily. Medical Branch pantoprazol 2021-0 Yes [id number] 40mg Take 1 [facility] e 40 mg EC 4-04 tablet by ity of tablet 00:00: mouth [place] 00 daily. Medical Branch pantoprazol 2021-0 Yes [id number] 40mg Take 1 [facility] e 40 mg EC 4-04 tablet by ity of tablet 00:00: mouth [place] 00 daily. Medical Branch pantoprazol 2021-0 Yes [id number] 40mg Take 1 [facility] e 40 mg EC 4-04 tablet by ity of tablet 00:00: mouth [place] 00 daily. Medical Branch pantoprazol 2021-0 Yes [id number] 40mg Take 1 [facility] e 40 mg EC 4-04 tablet by ity of tablet 00:00: mouth [place] 00 daily. Medical Branch pantoprazol 2021-0 Yes [id number] 40mg Take 1 [facility] e 40 mg EC 4-04 tablet by ity of tablet 00:00: mouth [place] 00 daily. Medical Branch pantoprazol 2021-0 Yes [id number] 40mg Take 1 [facility] e 40 mg EC 4-04 tablet by ity of tablet 00:00: mouth [place] 00 daily. Medical Branch pantoprazol Yes [id number] 40mg Take 1 [facility] e 40 mg EC 4-04 tablet by ity of tablet 00:00: mouth [place] 00 daily. Medical Branch pantoprazol Yes [id number] 40mg Take 1 [facility] e 40 mg EC 4-04 tablet by ity of tablet 00:00: mouth [place] 00 daily. [facility] pantoprazol Yes [id number] 40mg Take 1 [facility] e 40 mg EC 4-04 tablet by ity of tablet 00:00: mouth [place] 00 daily. Medical Branch pantoprazol Yes [id number] 40mg Take 1 [facility] e 40 mg EC 4-04 tablet by ity of tablet 00:00: mouth [place] 00 daily. [facility] pantoprazol Yes [id number] 40mg Take 1 [facility] e 40 mg EC 4-04 tablet by ity of tablet 00:00: mouth [place] 00 daily. [facility] pantoprazol Yes [id number] 40mg Take 1 [facility] e 40 mg EC 4-04 tablet by ity of tablet 00:00: mouth [place] 00 daily. [facility] pantoprazol Yes [id number] 40mg Take 1 [facility] e 40 mg EC 4-04 tablet by ity of tablet 00:00: mouth [place] 00 daily. [facility] pantoprazol Yes [id number] 40mg Take 1 [facility] e 40 mg EC 4-04 tablet by ity of tablet 00:00: mouth [place] 00 daily. [facility] pantoprazol Yes [id number] 40mg Take 1 [facility] e 40 mg EC 4-04 tablet by ity of tablet 00:00: mouth [place] 00 daily. [facility] pantoprazol 2021- No [id number] 40mg Take 1 [facility] e 40 mg EC 4-04 -16 tablet by ity of tablet 00:00: 00:00 mouth [place] 00 :00 daily. [facility] pantoprazol 2021- No [id number] 40mg Take 1 [facility] e 40 mg EC 4-04 -16 tablet by ity of tablet 00:00: 00:00 mouth [place] 00 :00 daily. [facility] pantoprazol 2021- No [id number] 40mg Take 1 [facility] e 40 mg EC 12-28 tablet by ity of tablet 00:00: 00:00 mouth [place] 00 :00 daily. [facility] pantoprazol 2021- No [id number] 40mg Take 1 [facility] e 40 mg EC 12-28 tablet by ity of tablet 00:00: 00:00 mouth [place] 00 :00 daily. [facility] pantoprazol 2021- No [id number] 40mg Take 1 [facility] e 40 mg EC 12-28 tablet by ity of tablet 00:00: 00:00 mouth [place] 00 :00 daily. [facility] pantoprazol 2021- No [id number] 40mg Take 1 [facility] e 40 mg EC 12-28 tablet by ity of tablet 00:00: 00:00 mouth [place] 00 :00 daily. [facility] pantoprazol 2021- No [id number] 40mg Take 1 [facility] e 40 mg EC 12-28 tablet by ity of tablet 00:00: 00:00 mouth [place] 00 :00 daily. [facility] pantoprazol 2021- No [id number] 40mg Take 1 [facility] e 40 mg EC 12-28 tablet by ity of tablet 00:00: 00:00 mouth [place] 00 :00 daily. [facility] Blood-Gluco 2-0 Yes [id number] Use twice [facility] se Meter 3-08 a day for ity of (ONETOUCH 00:00: ICD [place] VERIO FLEX E11.65 Medical START) [facility] Blood-Gluco 2-0 Yes [id number] Use twice [facility] se Meter 3-08 a day for ity of (ONETOUCH 00:00: [place] VERIO FLEX E11.65 Medical START) [facility] Blood-Gluco 2-0 Yes [id number] Use twice [facility] se Meter 3-08 a day for ity of (ONETOUCH 00:00: [place] VERIO FLEX E11.65 Medical START) [facility] Blood-Gluco 2022-0 Yes [id number] Use twice [facility] se Meter 3-08 a day for ity of (ONETOUCH 00:00: ICD [place] VERIO FLEX 00 E11.65 Medical START) [facility] Blood-Gluco 2022-0 Yes [id number] Use twice [facility] se Meter 3-08 a day for ity of (ONETOUCH 00:00: [place] VERIO FLEX Medical START) [facility] Blood-Gluco 2022-0 Yes [id number] Use twice [facility] se Meter 3-08 a day for ity of (ONETOUCH 00:00: ICD [place] VERIO FLEX Medical START) [facility] Blood-Gluco 2022-0 Yes [id number] Use twice [facility] se Meter 3-08 a day for ity of (ONETOUCH 00:00: ICD [place] VERIO FLEX Medical START) [facility] Blood-Gluco 2022-0 Yes [id number] Use twice [facility] se Meter 3-08 a day for ity of (ONETOUCH 00:00: ICD CODE [place] VERIO FLEX Medical START) [facility] Blood-Gluco 2022-0 Yes [id number] Use twice [facility] se Meter 3-08 a day for ity of (ONETOUCH 00:00: ICD CODE [place] VERIO FLEX Medical START) [facility] Blood-Gluco 2022-0 Yes [id number] Use twice [facility] se Meter 3-08 a day for ity of (ONETOUCH 00:00: ICD [place] VERIO FLEX Medical START) [facility] Blood-Gluco 2022-0 Yes [id number] Use twice [facility] se Meter 3-08 a day for ity of (ONETOUCH 00:00: ICD CODE [place] VERIO FLEX Medical START) [facility] Blood-Gluco 2022-0 Yes [id number] Use twice [facility] se Meter 3-08 a day for ity of (ONETOUCH 00:00: ICD CODE [place] VERIO FLEX Medical START) [facility] Blood-Gluco 2022-0 Yes [id number] Use twice [facility] se Meter 3-08 a day for ity of (ONETOUCH 00:00: ICD CODE [place] VERIO FLEX Medical START) [facility] Blood-Gluco 2022-0 Yes [id number] Use twice [facility] se Meter 3-08 a day for ity of (ONETOUCH 00:00: ICD CODE [place] VERIO FLEX Medical START) [facility] Blood-Gluco 2022-0 Yes [id number] Use twice [facility] se Meter 3-08 a day for ity of (ONETOUCH 00:00: ICD CODE [place] VERIO FLEX Medical START) [facility] Blood-Gluco 2022-0 Yes [id number] Use twice [facility] se Meter 3-08 a day for ity of (ONETOUCH 00:00: ICD CODE [place] VERIO FLEX Medical START) [facility] Blood-Gluco 2022-0 Yes [id number] Use twice [facility] se Meter 3-08 a day for ity of (ONETOUCH 00:00: ICD CODE [place] VERIO FLEX Medical START) [facility] Blood-Gluco 2022-0 Yes [id number] Use twice [facility] se Meter 3-08 a day for ity of (ONETOUCH 00:00: ICD CODE [place] VERIO FLEX Medical START) [facility] Blood-Gluco 2022-0 Yes [id number] Use twice [facility] se Meter 3-08 a day for ity of (ONETOUCH 00:00: ICD CODE [place] VERIO FLEX Medical START) [facility] Blood-Gluco 2022-0 Yes [id number] Use twice [facility] se Meter 3-08 a day for ity of (ONETOUCH 00:00: ICD CODE [place] VERIO FLEX Medical START) [facility] Blood-Gluco 2022-0 Yes [id number] Use twice [facility] se Meter 3-08 a day for ity of (ONETOUCH 00:00: ICD CODE [place] VERIO FLEX Medical START) [facility] Blood-Gluco 2022-0 Yes [id number] Use twice [facility] se Meter 3-08 a day for ity of (ONETOUCH 00:00: ICD CODE [place] VERIO FLEX Medical START) [facility] Blood-Gluco 2022-0 Yes [id number] Use twice [facility] se Meter 3-08 a day for ity of (ONETOUCH 00:00: ICD CODE [place] VERIO FLEX Medical START) [facility] Blood-Gluco 2022-0 Yes [id number] Use twice [facility] se Meter 3-08 a day for ity of (ONETOUCH 00:00: ICD CODE [place] VERIO FLEX E11.65 Medical START) [facility] Blood-Gluco 2022-0 Yes [id number] Use twice [facility] se Meter 3-08 a day for ity of (ONETOUCH 00:00: ICD CODE [place] VERIO FLEX E11.65 Medical START) [facility] Blood-Gluco 2022-0 Yes [id number] Use twice [facility] se Meter 3-08 a day for ity of (ONETOUCH 00:00: ICD CODE [place] VERIO FLEX E11.65 Medical START) [facility] Blood-Gluco 2022-0 Yes [id number] Use twice [facility] se Meter 3-08 a day for ity of (ONETOUCH 00:00: ICD CODE [place] VERIO FLEX E1165 Medical START) [facility] Blood-Gluco 2022-0 Yes [id number] Use twice [facility] se Meter 3-08 a day for ity of (ONETOUCH 00:00: ICD CODE [place] VERIO FLEX E1165 Medical START) [facility] Blood-Gluco 2022-0 Yes [id number] Use twice [facility] se Meter 3-08 a day for ity of (ONETOUCH 00:00: ICD CODE [place] VERIO FLEX E11.65 Medical START) [facility] Blood-Gluco 2022-0 Yes [id number] Use twice [facility] se Meter 3-08 a day for ity of (ONETOUCH 00:00: ICD CODE [place] VERIO FLEX E11.65 Medical START) [facility] Blood-Gluco 2022-0 Yes [id number] Use twice [facility] se Meter 3-08 a day for ity of (ONETOUCH 00:00: ICD CODE [place] VERIO FLEX E11.65 Medical START) [facility] Blood-Gluco 2022-0 Yes [id number] Use twice [facility] se Meter 3-08 a day for ity of (ONETOUCH 00:00: ICD CODE [place] VERIO FLEX E11.65 Medical START) [facility] Blood-Gluco 2022-0 Yes [id number] Use twice [facility] se Meter 3-08 a day for ity of (ONETOUCH 00:00: ICD CODE [place] VERIO FLEX 00 E11.65 Medical START) [facility] Blood-Gluco 2021-0 Yes [id number] Use twice [facility] se Meter 3-08 a day for ity of (ONETOUCH 00:00: ICD CODE [place] VERIO FLEX START) [facility] Blood-Gluco 2021-0 Yes [id number] Use twice [facility] se Meter 3-08 a day for ity of (ONETOUCH 00:00: ICD [place] VERIO FLEX START) [facility] Blood-Gluco 2021-0 Yes [id number] Use twice [facility] se Meter 3-08 a day for ity of (ONETOUCH 00:00: ICD [place] VERIO FLEX ) [facility] Blood-Gluco 2021-0 2021- No [id number] Use twice [facility] se Meter 3-08 - a day for ity o f (ONETOUCH 00:00: 00:00 ICD CODE [place] VERIO FLEX 00 :) Kit [facility] Blood-Gluco 2021-0 2021- No [id number] Use twice [facility] se Meter 3-08 -22 a day for ity o f (ONETOUCH 00:00: 00:00 ICD CODE [place] VERIO FLEX 00 :) Kit Branch Blood-Gluco 2021-0 2021- No [id number] Use twice [facility] se Meter 3-08 - a day for ity o f (ONETOUCH 00:00: 00:00 ICD CODE [place] VERIO FLEX 00 :) Kit [facility] Blood-Gluco 2021-0 2021- No [id number] Use twice [facility] se Meter 3-08 -22 a day for ity o f (ONETOUCH 00:00: 00:00 ICD CODE [place] VERIO FLEX 00 :) Kit Branch Blood-Gluco 2022-0 2021- No [id number] Use twice [facility] se Meter 3-08 -22 a day for ity o f (ONETOUCH 00:00: 00:00 ICD CODE [place] VERIO FLEX 00 :) Kit Branch Blood-Gluco 2022-0 2021- No [id number] Use twice [facility] se Meter 306-17 a day for ity o f (ONETOUCH 00:00: 00:00 ICD CODE [place] VERIO FLEX 00 :00 E11.65 Medical START) [facility] Blood-Gluco 2021- No [id number] Use twice Univers se Meter 306-17 a day for ity o f (ONETOUCH 00:00: 00:00 ICD CODE [place] VERIO FLEX 00 :00 E11.65 Medical START) [facility] Blood-Gluco 2021- No [id number] Use twice [facility] se Meter 12-01 a day for ity o f (ONETOUCH 00:00: 00:00 ICD CODE [place] VERIO FLEX 00 :00 E11.65 Medical START) [facility] Blood-Gluco 2021- No [id number] Use twice [facility] se Meter 12-01 a day for ity o f (ONETOUCH 00:00: 00:00 ICD CODE [place] VERIO FLEX 00 :00 E11.65 Medical START) [facility] Blood-Gluco 2021- No [id number] Use twice [facility] se Meter 12-01 a day for ity o f (ONETOUCH 00:00: 00:00 ICD CODE [place] VERIO FLEX 00 :00 .65 Medical START) [facility] sucralfate 2021- No [id number] 1g Take 1 [facility] 1 gram 2-20 05-24 tablet by ity of tablet 00:00: 00:00 mouth [place] 00 :00 before Medical meals and Branch at bedtime. sucralfate 2021-2021- No [id number] 1g Take 1 [facility] 1 gram 2-20 05-24 tablet by ity of tablet 00:00: 00:00 mouth [place] 00 :00 before Medical meals and Branch at bedtime. sucralfate 2021-2021- No [id number] 1g Take 1 [facility] 1 gram 2-20 05-24 tablet by ity of tablet 00:00: 00:00 mouth [place] 00 :00 before Medical meals and Branch at bedtime. sucralfate 2021-2021- No [id number] 1g Take 1 [facility] 1 gram 2-20 05-24 tablet by ity of tablet 00:00: 00:00 mouth [place] 00 :00 before Medical meals and Branch at bedtime. sucralfate 2021- No [id number] 1g Take 1 [facility] 1 gram 2-20 05-24 tablet by ity of tablet 00:00: 00:00 mouth [place] 00 :00 before Medical meals and Branch at bedtime. [place] No [id number] To use Uni vers Device with 2-08 05-24 twice a ity of Lancets 00:00: 00:00 day for [place] (ONE TOUCH 00 :00 ICD code Medic al DELICA) Kit E11.65 Branch blood sugar No [id number] Use twice [facility] diagnostic 2- 05-24 a day for ity of (ONETOUCH 00:00: 00:00 ICD CODE [place] VERIO TEST 00 :00 E11.65 Medical STRIPS) Branch strip [place] No [id number] To use Uni vers Device with 2-08 05-24 twice a ity of Lancets 00:00: 00:00 day for [place] (ONE TOUCH 00 :00 ICD code Medic al DELICA) Kit E11.65 Branch blood sugar No [id number] Use twice [facility] diagnostic 2- 05-24 a day for ity of (ONETOUCH 00:00: 00:00 ICD CODE [place] VERIO TEST 00 :00 E11.65 Medical STRIPS) Branch strip [place] No [id number] To use Uni vers Device with 2-08 05-24 twice a ity of Lancets 00:00: 00:00 day for [place] (ONE TOUCH 00 :00 ICD code Medic al DELICA) Kit E11.65 Branch blood sugar No [id number] Use twice [facility] diagnostic 2-08 05-24 a day for ity of (ONETOUCH 00:00: 00:00 ICD CODE [place] VERIO TEST 00 :00 E11.65 Medical STRIPS) Branch strip [place] No [id number] To use Uni vers Device with 2-08 05-24 twice a ity of Lancets 00:00: 00:00 day for [place] (ONE TOUCH 00 :00 ICD code Medic al DELICA) Kit E11.65 Branch blood sugar 2021- No [id number] Use twice [facility] diagnostic 11-03-24 a day for ity of (ONETOUCH 00:00: 00:00 ICD CODE [place] VERIO TEST 00 :00 E11.65 Medical STRIPS) Branch strip [place] 2021- No [id number] To use Uni vers Device with - 05-24 twice a ity of Lancets 00:00: 00:00 day for [place] (ONE TOUCH 00 :00 ICD code Medic al DELICA) Kit E11.65 Branch blood sugar 2021- No [id number] Use twice [facility] diagnostic 11-03-24 a day for ity of (ONETOUCH 00:00: 00:00 ICD CODE [place] VERIO TEST 00 :00 E11.65 Medical STRIPS) Branch strip mirabegron Yes [id number] 50mg Take 1 [facility] (MYRBETRIQ) 1-18 tablet by ity of 50 mg 00:00: mouth [place] tablet 00 daily. Medical Branch mirabegron Yes [id number] 50mg Take 1 [facility] (MYRBETRIQ) 1-18 tablet by ity of 50 mg 00:00: mouth [place] tablet 00 daily. Medical Branch mirabegron Yes [id number] 50mg Take 1 [facility] (MYRBETRIQ) 1-18 tablet by ity of 50 mg 00:00: mouth [place] tablet 00 daily. Medical Branch mirabegron Yes [id number] 50mg Take 1 [facility] (MYRBETRIQ) 1-18 tablet by ity of 50 mg 00:00: mouth [place] tablet 00 daily. Medical Branch mirabegron Yes [id number] 50mg Take 1 [facility] (MYRBETRIQ) 1-18 tablet by ity of 50 mg 00:00: mouth [place] tablet 00 daily. Medical Branch mirabegron Yes [id number] 50mg Take 1 [facility] (MYRBETRIQ) 1-18 tablet by ity of 50 mg 00:00: mouth [place] tablet 00 daily. Medical Branch mirabegron Yes [id number] 50mg Take 1 [facility] (MYRBETRIQ) 1-18 tablet by ity of 50 mg 00:00: mouth [place] tablet 00 daily. Medical Branch mirabegron Yes [id number] 50mg Take 1 [facility] (MYRBETRIQ) 1-18 tablet by ity of 50 mg 00:00: mouth [place] tablet 00 daily. [facility] mirabegron 0 Yes [id number] 50mg Take 1 Univers (MYRBETRIQ) 1-18 tablet by ity of 50 mg 00:00: mouth [place] tablet 00 daily. [facility] mirabegron 2021-0 Yes [id number] 50mg Take 1 Univers (MYRBETRIQ) 1-18 tablet by ity of 50 mg 00:00: mouth [place] tablet 00 daily. [facility] mirabegron 2021-0 Yes [id number] 50mg Take 1 Univers (MYRBETRIQ) 1-18 tablet by ity of 50 mg 00:00: mouth [place] tablet 00 daily. [facility] mirabegron 0 Yes [id number] 50mg Take 1 Univers (MYRBETRIQ) 1-18 tablet by ity of 50 mg 00:00: mouth [place] tablet 00 daily. [facility] mirabegron 0 Yes [id number] 50mg Take 1 [facility] (MYRBETRIQ) 1-18 tablet by ity of 50 mg 00:00: mouth [place] tablet 00 daily. [facility] mirabegron 0 Yes [id number] 50mg Take 1 [facility] (MYRBETRIQ) 1-18 tablet by ity of 50 mg 00:00: mouth [place] tablet 00 daily. [facility] mirabegron 0 Yes [id number] 50mg Take 1 Univers (MYRBETRIQ) 1-18 tablet by ity of 50 mg 00:00: mouth [place] tablet 00 daily. [facility] mirabegron 0 Yes [id number] 50mg Take 1 [facility] (MYRBETRIQ) 1-18 tablet by ity of 50 mg 00:00: mouth [place] tablet 00 daily. [facility] mirabegron 0 Yes [id number] 50mg Take 1 Univers (MYRBETRIQ) 1-18 tablet by ity of 50 mg 00:00: mouth [place] tablet 00 daily. [facility] mirabegron 2021-0 Yes [id number] 50mg Take 1 Univers (MYRBETRIQ) 1-18 tablet by ity of 50 mg 00:00: mouth [place] tablet 00 daily. [facility] mirabegron 0 Yes [id number] 50mg Take 1 [facility] (MYRBETRIQ) 1-18 tablet by ity of 50 mg 00:00: mouth [place] tablet 00 daily. [facility] mirabegron 0 Yes [id number] 50mg Take 1 [facility] (MYRBETRIQ) 1-18 tablet by ity of 50 mg 00:00: mouth [place] tablet 00 daily. [facility] mirabegron 0 Yes [id number] 50mg Take 1 [facility] (MYRBETRIQ) 1-18 tablet by ity of 50 mg 00:00: mouth [place] tablet 00 daily. [facility] mirabegron 0 Yes [id number] 50mg Take 1 Univers (MYRBETRIQ) 1-18 tablet by ity of 50 mg 00:00: mouth [place] tablet 00 daily. [facility] mirabegron 0 Yes [id number] 50mg Take 1 Univers (MYRBETRIQ) 1-18 tablet by ity of 50 mg 00:00: mouth [place] tablet 00 daily. [facility] mirabegron 0 Yes [id number] 50mg Take 1 [facility] (MYRBETRIQ) 1-18 tablet by ity of 50 mg 00:00: mouth [place] tablet 00 daily. [facility] mirabegron 0 Yes [id number] 50mg Take 1 Univers (MYRBETRIQ) 1-18 tablet by ity of 50 mg 00:00: mouth [place] tablet 00 daily. [facility] mirabegron 0 Yes [id number] 50mg Take 1 Univers (MYRBETRIQ) 1-18 tablet by ity of 50 mg 00:00: mouth [place] tablet 00 daily. [facility] mirabegron 0 Yes [id number] 50mg Take 1 [facility] (MYRBETRIQ) 1-18 tablet by ity of 50 mg 00:00: mouth [place] tablet 00 daily. [facility] mirabegron 0 Yes [id number] 50mg Take 1 Univers (MYRBETRIQ) 1-18 tablet by ity of 50 mg 00:00: mouth [place] tablet 00 daily. [facility] mirabegron 0 Yes [id number] 50mg Take 1 [facility] (MYRBETRIQ) 1-18 tablet by ity of 50 mg 00:00: mouth [place] tablet 00 daily. [facility] mirabegron 2021-0 Yes [id number] 50mg Take 1 Univers (MYRBETRIQ) 1-18 tablet by ity of 50 mg 00:00: mouth [place] tablet 00 daily. [facility] mirabegron 2021-0 Yes [id number] 50mg Take 1 Univers (MYRBETRIQ) 1-18 tablet by ity of 50 mg 00:00: mouth [place] tablet 00 daily. [facility] mirabegron 0 Yes [id number] 50mg Take 1 Univers (MYRBETRIQ) 1-18 tablet by ity of 50 mg 00:00: mouth [place] tablet 00 daily. [facility] mirabegron 0 Yes [id number] 50mg Take 1 [facility] (MYRBETRIQ) 1-18 tablet by ity of 50 mg 00:00: mouth [place] tablet 00 daily. [facility] mirabegron 0 Yes [id number] 50mg Take 1 Univers (MYRBETRIQ) 1-18 tablet by ity of 50 mg 00:00: mouth [place] tablet 00 daily. [facility] mirabegron 0 Yes [id number] 50mg Take 1 Univers (MYRBETRIQ) 1-18 tablet by ity of 50 mg 00:00: mouth [place] tablet 00 daily. [facility] mirabegron 0 Yes [id number] 50mg Take 1 Univers (MYRBETRIQ) 1-18 tablet by ity of 50 mg 00:00: mouth [place] tablet 00 daily. [facility] mirabegron 0 Yes [id number] 50mg Take 1 Univers (MYRBETRIQ) 1-18 tablet by ity of 50 mg 00:00: mouth [place] tablet 00 daily. [facility] mirabegron 0 Yes [id number] 50mg Take 1 Univers (MYRBETRIQ) 1-18 tablet by ity of 50 mg 00:00: mouth [place] tablet 00 daily. [facility] mirabegron 2021-0 Yes [id number] 50mg Take 1 Univers (MYRBETRIQ) 1-18 tablet by ity of 50 mg 00:00: mouth [place] tablet 00 daily. [facility] mirabegron 2021-0 Yes [id number] 50mg Take 1 Univers (MYRBETRIQ) 1-18 tablet by ity of 50 mg 00:00: mouth [place] tablet 00 daily. [facility] mirabegron 0 Yes [id number] 50mg Take 1 [facility] (MYRBETRIQ) 1-18 tablet by ity of 50 mg 00:00: mouth [place] tablet 00 daily. [facility] mirabegron 0 Yes [id number] 50mg Take 1 [facility] (MYRBETRIQ) 1-18 tablet by ity of 50 mg 00:00: mouth [place] tablet 00 daily. [facility] mirabegron 0 Yes [id number] 50mg Take 1 [facility] (MYRBETRIQ) 1-18 tablet by ity of 50 mg 00:00: mouth [place] tablet 00 daily. [facility] mirabegron 0 Yes [id number] 50mg Take 1 [facility] (MYRBETRIQ) 1-18 tablet by ity of 50 mg 00:00: mouth [place] tablet 00 daily. [facility] mirabegron 0 Yes [id number] 50mg Take 1 Univers (MYRBETRIQ) 1-18 tablet by ity of 50 mg 00:00: mouth [place] tablet 00 daily. [facility] mirabegron 0 Yes [id number] 50mg Take 1 [facility] (MYRBETRIQ) 1-18 tablet by ity of 50 mg 00:00: mouth [place] tablet 00 daily. [facility] mirabegron 0 Yes [id number] 50mg Take 1 [facility] (MYRBETRIQ) 1-18 tablet by ity of 50 mg 00:00: mouth [place] tablet 00 daily. [facility] mirabegron 0 Yes [id number] 50mg Take 1 [facility] (MYRBETRIQ) 1-18 tablet by ity of 50 mg 00:00: mouth [place] tablet 00 daily. [facility] mirabegron 0 2021- No [id number] 50mg Take 1 Univers (MYRBETRIQ) 1-18 10-13 tablet by it y of 50 mg 00:00: 00:00 mouth [place] tablet 00 :00 daily. [facility] mirabegron 0 2021- No [id number] 50mg Take 1 [facility] (MYRBETRIQ) 1-18 10-13 tablet by it y of 50 mg 00:00: 00:00 mouth [place] tablet 00 :00 daily. [facility] mirabegron 2021- No [id number] 50mg Take 1 [facility] (MYRBETRIQ) 1-18 10-13 tablet by it y of 50 mg 00:00: 00:00 mouth [place] tablet 00 :00 daily. [facility] mirabegron 2021- No [id number] 50mg Take 1 [facility] (MYRBETRIQ) 1-18 10-13 tablet by it y of 50 mg 00:00: 00:00 mouth [place] tablet 00 :00 daily. [facility] mirabegron 2021- No [id number] 50mg Take 1 [facility] (MYRBETRIQ) 1-18 10-13 tablet by it y of 50 mg 00:00: 00:00 mouth [place] tablet 00 :00 daily. [facility] mirabegron 2021- No [id number] 50mg Take 1 [facility] (MYRBETRIQ) 1-18 10-13 tablet by it y of 50 mg 00:00: 00:00 mouth [place] tablet 00 :00 daily. [facility] mirabegron 2021- No [id number] 50mg Take 1 [facility] (MYRBETRIQ) 1-18 10-13 tablet by it y of 50 mg 00:00: 00:00 mouth [place] tablet 00 :00 daily. [facility] mirabegron 2021- No [id number] 50mg Take 1 [facility] (MYRBETRIQ) 1-18 10-13 tablet by it y of 50 mg 00:00: 00:00 mouth [place] tablet 00 :00 daily. [facility] mirabegron 2021- No [id number] 50mg Take 1 [facility] (MYRBETRIQ) 1-18 10-13 tablet by it y of 50 mg 00:00: 00:00 mouth [place] tablet 00 :00 daily. [facility] mirabegron 2021- No [id number] 50mg Take 1 [facility] (MYRBETRIQ) 1-18 10-13 tablet by it y of 50 mg 00:00: 00:00 mouth [place] tablet 00 :00 daily. [facility] semaglutide 2020-09 Yes [id number] Inject [facility] (OZEMPIC) 2-01 0.25 mg ity of 0.25 mg or 00:00: under the [place] 0.5 mg(2 00 skin Medical mg/1.5 mL) weekly. Branch PnIj semaglutide 2020-09 Yes [id number] Inject [facility] (OZEMPIC) 2-01 0.25 mg ity of 0.25 mg or 00:00: under the [place] 0.5 mg(2 00 skin Medical mg/1.5 mL) weekly. Branch PnIj semaglutide 2020-09 Yes [id number] Inject [facility] (OZEMPIC) 2-01 0.25 mg ity of 0.25 mg or 00:00: under the [place] 0.5 mg(2 00 skin Medical mg/1.5 mL) weekly. Branch PnIj semaglutide 2020-09 Yes [id number] Inject [facility] (OZEMPIC) 2-01 0.25 mg ity of 0.25 mg or 00:00: under the [place] 0.5 mg(2 00 skin Medical mg/1.5 mL) weekly. Branch PnIj semaglutide 2020-09 Yes [id number] Inject [facility] (OZEMPIC) 2-01 0.25 mg ity of 0.25 mg or 00:00: under the [place] 0.5 mg(2 00 skin Medical mg/1.5 mL) weekly. Branch PnIj semaglutide 2020-09 Yes [id number] Inject [facility] (OZEMPIC) 2-01 0.25 mg ity of 0.25 mg or 00:00: under the [place] 0.5 mg(2 00 skin Medical mg/1.5 mL) weekly. Branch PnIj semaglutide 2020-09 Yes [id number] Inject [facility] (OZEMPIC) 2-01 0.25 mg ity of 0.25 mg or 00:00: under the [place] 0.5 mg(2 00 skin Medical mg/1.5 mL) weekly. Branch PnIj semaglutide 2020-09 Yes [id number] Inject [facility] (OZEMPIC) 2-01 0.25 mg ity of 0.25 mg or 00:00: under the [place] 0.5 mg(2 00 skin Medical mg/1.5 mL) weekly. Branch PnIj semaglutide 2020-09 Yes [id number] Inject [facility] (OZEMPIC) 2-01 0.25 mg ity of 0.25 mg or 00:00: under the [place] 0.5 mg(2 00 skin Medical mg/1.5 mL) weekly. Branch RyIj semaglutide 2020-09 Yes [id number] Inject [facility] (OZEMPIC) 2-01 0.25 mg ity of 0.25 mg or 00:00: under the [place] 0.5 mg(2 00 skin Medical mg/1.5 mL) weekly. Branch RyIj semaglutide 2020-09 Yes [id number] Inject [facility] (OZEMPIC) 2-01 0.25 mg ity of 0.25 mg or 00:00: under the [place] 0.5 mg(2 00 skin Medical mg/1.5 mL) weekly. Branch RyIj semaglutide 2020-09 Yes [id number] Inject [facility] (OZEMPIC) 2-01 0.25 mg ity of 0.25 mg or 00:00: under the [place] 0.5 mg(2 00 skin Medical mg/1.5 mL) weekly. Branch Sangeeta semaglutide 2020-09 Yes [id number] Inject [facility] (OZEMPIC) 2-01 0.25 mg ity of 0.25 mg or 00:00: under the [place] 0.5 mg(2 00 skin Medical mg/1.5 mL) weekly. Branch RyMali semaglutide 2020-09 Yes [id number] Inject [facility] (OZEMPIC) 2-01 0.25 mg ity of 0.25 mg or 00:00: under the [place] 0.5 mg(2 00 skin Medical mg/1.5 mL) weekly. Branch RyIj semaglutide 2020-09 Yes [id number] Inject [facility] (OZEMPIC) 2-01 0.25 mg ity of 0.25 mg or 00:00: under the [place] 0.5 mg(2 00 skin Medical mg/1.5 mL) weekly. Branch RyIj semaglutide 2020-09 Yes [id number] Inject [facility] (OZEMPIC) 2-01 0.25 mg ity of 0.25 mg or 00:00: under the [place] 0.5 mg(2 00 skin Medical mg/1.5 mL) weekly. Branch RyIj semaglutide 2020-09 Yes [id number] Inject [facility] (OZEMPIC) 2-01 0.25 mg ity of 0.25 mg or 00:00: under the [place] 0.5 mg(2 00 skin Medical mg/1.5 mL) weekly. Branch PnIj semaglutide 2020-09 Yes [id number] Inject [facility] (OZEMPIC) 2-01 0.25 mg ity of 0.25 mg or 00:00: under the [place] 0.5 mg(2 00 skin Medical mg/1.5 mL) weekly. Branch PnIj semaglutide 2020-09 Yes [id number] Inject [facility] (OZEMPIC) 2-01 0.25 mg ity of 0.25 mg or 00:00: under the [place] 0.5 mg(2 00 skin Medical mg/1.5 mL) weekly. Branch PnIj semaglutide 2020-09 Yes [id number] Inject [facility] (OZEMPIC) 2-01 0.25 mg ity of 0.25 mg or 00:00: under the [place] 0.5 mg(2 00 skin Medical mg/1.5 mL) weekly. Branch PnIj semaglutide 2020-09 Yes [id number] Inject [facility] (OZEMPIC) 2-01 0.25 mg ity of 0.25 mg or 00:00: under the [place] 0.5 mg(2 00 skin Medical mg/1.5 mL) weekly. Branch PnIj semaglutide 2020-09 Yes [id number] Inject [facility] (OZEMPIC) 2-01 0.25 mg ity of 0.25 mg or 00:00: under the [place] 0.5 mg(2 00 skin Medical mg/1.5 mL) weekly. Branch PnIj semaglutide 2020-09 Yes [id number] Inject [facility] (OZEMPIC) 2-01 0.25 mg ity of 0.25 mg or 00:00: under the [place] 0.5 mg(2 00 skin Medical mg/1.5 mL) weekly. Branch PnIj semaglutide 2020-09 Yes [id number] Inject [facility] (OZEMPIC) 2-01 0.25 mg ity of 0.25 mg or 00:00: under the [place] 0.5 mg(2 00 skin Medical mg/1.5 mL) weekly. Branch PnIj semaglutide 2020-09 Yes [id number] Inject [facility] (OZEMPIC) 2-01 0.25 mg ity of 0.25 mg or 00:00: under the [place] 0.5 mg(2 00 skin Medical mg/1.5 mL) weekly. Branch PnIj semaglutide 2020-09 Yes [id number] Inject [facility] (OZEMPIC) 2-01 0.25 mg ity of 0.25 mg or 00:00: under the [place] 0.5 mg(2 00 skin Medical mg/1.5 mL) weekly. Branch PnIj semaglutide 2020-09 Yes [id number] Inject [facility] (OZEMPIC) 2-01 0.25 mg ity of 0.25 mg or 00:00: under the [place] 0.5 mg(2 00 skin Medical mg/1.5 mL) weekly. Branch PnIj semaglutide 2020-09 Yes [id number] Inject [facility] (OZEMPIC) 2-01 0.25 mg ity of 0.25 mg or 00:00: under the [place] 0.5 mg(2 00 skin Medical mg/1.5 mL) weekly. Branch PnIj semaglutide 2020-09 Yes [id number] Inject [facility] (OZEMPIC) 2-01 0.25 mg ity of 0.25 mg or 00:00: under the [place] 0.5 mg(2 00 skin Medical mg/1.5 mL) weekly. Branch PnIj semaglutide 2020-09 Yes [id number] Inject [facility] (OZEMPIC) 2-01 0.25 mg ity of 0.25 mg or 00:00: under the [place] 0.5 mg(2 00 skin Medical mg/1.5 mL) weekly. Branch PnIj semaglutide 2020-09 Yes [id number] Inject [facility] (OZEMPIC) 2-01 0.25 mg ity of 0.25 mg or 00:00: under the [place] 0.5 mg(2 00 skin Medical mg/1.5 mL) weekly. Branch PnIj semaglutide 2020-09 Yes [id number] Inject [facility] (OZEMPIC) 2-01 0.25 mg ity of 0.25 mg or 00:00: under the [place] 0.5 mg(2 00 skin Medical mg/1.5 mL) weekly. Branch PnIj semaglutide 2020-09 Yes [id number] Inject [facility] (OZEMPIC) 2-01 0.25 mg ity of 0.25 mg or 00:00: under the [place] 0.5 mg(2 00 skin Medical mg/1.5 mL) weekly. Branch PnIj semaglutide 2020-09 Yes [id number] Inject [facility] (OZEMPIC) 2-01 0.25 mg ity of 0.25 mg or 00:00: under the [place] 0.5 mg(2 00 skin Medical mg/1.5 mL) weekly. Branch PnIj semaglutide 2020-09 Yes [id number] Inject [facility] (OZEMPIC) 2-01 0.25 mg ity of 0.25 mg or 00:00: under the [place] 0.5 mg(2 00 skin Medical mg/1.5 mL) weekly. Branch PnIj semaglutide 2020-09 Yes [id number] Inject [facility] (OZEMPIC) 2-01 0.25 mg ity of 0.25 mg or 00:00: under the [place] 0.5 mg(2 00 skin Medical mg/1.5 mL) weekly. Branch PnIj semaglutide 2020-09 Yes [id number] Inject [facility] (OZEMPIC) 2-01 0.25 mg ity of 0.25 mg or 00:00: under the [place] 0.5 mg(2 00 skin Medical mg/1.5 mL) weekly. Branch PnIj semaglutide 2020-09 Yes [id number] Inject [facility] (OZEMPIC) 2-01 0.25 mg ity of 0.25 mg or 00:00: under the [place] 0.5 mg(2 00 skin Medical mg/1.5 mL) weekly. Branch PnIj semaglutide 2020-09 Yes [id number] Inject [facility] (OZEMPIC) 2-01 0.25 mg ity of 0.25 mg or 00:00: under the [place] 0.5 mg(2 00 skin Medical mg/1.5 mL) weekly. Branch PnIj semaglutide 2020-09 Yes [id number] Inject [facility] (OZEMPIC) 2-01 0.25 mg ity of 0.25 mg or 00:00: under the [place] 0.5 mg(2 00 skin Medical mg/1.5 mL) weekly. Branch PnIj semaglutide 2020-09 Yes [id number] Inject [facility] (OZEMPIC) 2-01 0.25 mg ity of 0.25 mg or 00:00: under the [place] 0.5 mg(2 00 skin Medical mg/1.5 mL) weekly. Branch PnIj semaglutide 2020-09 Yes [id number] Inject [facility] (OZEMPIC) 2-01 0.25 mg ity of 0.25 mg or 00:00: under the [place] 0.5 mg(2 00 skin Medical mg/1.5 mL) weekly. Branch PnIj semaglutide 2020-09 Yes [id number] Inject [facility] (OZEMPIC) 2-01 0.25 mg ity of 0.25 mg or 00:00: under the [place] 0.5 mg(2 00 skin Medical mg/1.5 mL) weekly. Branch PnIj semaglutide 2020-09 Yes [id number] Inject [facility] (OZEMPIC) 2-01 0.25 mg ity of 0.25 mg or 00:00: under the [place] 0.5 mg(2 00 skin Medical mg/1.5 mL) weekly. Branch PnIj semaglutide 2020-09 Yes [id number] Inject [facility] (OZEMPIC) 2-01 0.25 mg ity of 0.25 mg or 00:00: under the [place] 0.5 mg(2 00 skin Medical mg/1.5 mL) weekly. Branch PnIj semaglutide 2020-09 Yes [id number] Inject [facility] (OZEMPIC) 2-01 0.25 mg ity of 0.25 mg or 00:00: under the [place] 0.5 mg(2 00 skin Medical mg/1.5 mL) weekly. Branch PnIj semaglutide 2020-09 Yes [id number] Inject [facility] (OZEMPIC) 2-01 0.25 mg ity of 0.25 mg or 00:00: under the [place] 0.5 mg(2 00 skin Medical mg/1.5 mL) weekly. Branch PnIj semaglutide 2020-09 Yes [id number] Inject [facility] (OZEMPIC) 2-01 0.25 mg ity of 0.25 mg or 00:00: under the [place] 0.5 mg(2 00 skin Medical mg/1.5 mL) weekly. Chromo Sangeeta semaglutide 2020-09- No [id number] Inject [facility] (OZEMPIC) 10-27 0.25 mg ity of 0.25 mg or 00:00: 00:00 under the [place] 0.5 mg(2 00 :00 skin Medical mg/1.5 mL) weekly. Chromo S[place] semaglutide 2020-09- No [id number] Inject [facility] (OZEMPIC) 10-27 0.25 mg ity of 0.25 mg or 00:00: 00:00 under the [place] 0.5 mg(2 00 :00 skin Medical mg/1.5 mL) weekly. Chromo [place] semaglutide 2020-09- No [id number] Inject [facility] (OZEMPIC) 10-27 0.25 mg ity of 0.25 mg or 00:00: 00:00 under the [place] 0.5 mg(2 00 :00 skin Medical mg/1.5 mL) weekly. Chromo [place] semaglutide 2020-09- No [id number] Inject [facility] (OZEMPIC) 10-27 0.25 mg ity of 0.25 mg or 00:00: 00:00 under the [place] 0.5 mg(2 00 :00 skin Medical mg/1.5 mL) weekly. Chromo [place] semaglutide 2020-09- No [id number] Inject [facility] (OZEMPIC) 10-27 0.25 mg ity of 0.25 mg or 00:00: 00:00 under the [place] 0.5 mg(2 00 :00 skin Medical mg/1.5 mL) weekly. Chromo [place] semaglutide 2020-09- No [id number] Inject [facility] (OZEMPIC) 10-27 0.25 mg ity of 0.25 mg or 00:00: 00:00 under the [place] 0.5 mg(2 00 :00 skin Medical mg/1.5 mL) weekly. Chromo [place] semaglutide 2020-09- No [id number] Inject [facility] (OZEMPIC) 10-27 0.25 mg ity of 0.25 mg or 00:00: 00:00 under the [place] 0.5 mg(2 00 :00 skin Medical mg/1.5 mL) weekly. Shavonne Rutherford semaglutide 2020-09- No [id number] Inject [facility] (OZEMPIC) 10-27 0.25 mg ity of 0.25 mg or 00:00: 00:00 under the [place] 0.5 mg(2 00 :00 skin Medical mg/1.5 mL) weekly. Shavonne Rutherford semaglutide 2020-09- No [id number] Inject [facility] (OZEMPIC) 10-27 0.25 mg ity of 0.25 mg or 00:00: 00:00 under the [place] 0.5 mg(2 00 :00 skin Medical mg/1.5 mL) weekly. Shavonne carpenterglutide 2020-09- No [id number] Inject [facility] (OZEMPIC) 10-27 0.25 mg ity of 0.25 mg or 00:00: 00:00 under the [place] 0.5 mg(2 00 :00 skin Medical mg/1.5 mL) weekly. Shavonne Rutherford metformin 2020-09- No [id number] 500mg Take 1 [facility] ER 500 mg 10-27 tablet by ity of 24 hr 00:00: 00:00 mouth [place] tablet 00 :00 daily with Medical breakfast. Branch STOP REGULAR METFORMIN. metformin 2020-09- No [id number] 500mg Take 1 [facility] ER 500 mg 10-27 tablet by ity of 24 hr 00:00: 00:00 mouth [place] tablet 00 :00 daily with Medical breakfast. Branch STOP REGULAR METFORMIN. metformin 2020-09- No [id number] 500mg Take 1 [facility] ER 500 mg 10-27 tablet by ity of 24 hr 00:00: 00:00 mouth [place] tablet 00 :00 daily with Medical breakfast. Branch STOP REGULAR METFORMIN. metformin 2020-09- No [id number] 500mg Take 1 [facility] ER 500 mg 10-27 tablet by ity of 24 hr 00:00: 00:00 mouth [place] tablet 00 :00 daily with Medical breakfast. Branch STOP REGULAR METFORMIN. metformin 2020-09- No [id number] 500mg Take 1 [facility] ER 500 mg 10-27 tablet by ity of 24 hr 00:00: 00:00 mouth [place] tablet 00 :00 daily with Medical breakfast. Branch STOP REGULAR METFORMIN. metformin 2020-09- No [id number] 500mg Take 1 [facility] ER 500 mg 10-27 tablet by ity of 24 hr 00:00: 00:00 mouth [place] tablet 00 :00 daily with Medical breakfast. Branch STOP REGULAR METFORMIN. metformin 2020-09- No [id number] 500mg Take 1 [facility] ER 500 mg 10-27 tablet by ity of 24 hr 00:00: 00:00 mouth [place] tablet 00 :00 daily with Medical breakfast. Branch STOP REGULAR METFORMIN. metformin 2020-09- No [id number] 500mg Take 1 [facility] ER 500 mg 10-27 tablet by ity of 24 hr 00:00: 00:00 mouth [place] tablet 00 :00 daily with Medical breakfast. Branch STOP REGULAR METFORMIN. omeprazole 2020-09- No [id number] 20mg Take 1 [facility] 20 mg 10-27 capsule by ity of capsule 00:00: 00:00 mouth [place] 00 :00 daily. Medical Branch omeprazole 2020-09- No [id number] 20mg Take 1 [facility] 20 mg 10-27 capsule by ity of capsule 00:00: 00:00 mouth [place] 00 :00 daily. Medical Branch levalbutero 2020-09 Yes [id number] .63mg Inhale Univers l 0.63 mg/3 1-09 0.63 mg 3 ity of mL 00:00: (three) [place] nebulizer 00 times Medical solution daily as Branch needed for Wheezing or Shortness of Breath. albuterol 2020-09 Yes [id number] 2{puff} Inhale 2 [facility] (PROAIR 1-09 Puffs ity of HFA) 90 00:00: every 6 [place] mcg/actuati 00 (six) Medical on inhaler hours as Branc h needed for Wheezing or Shortness of Breath. levalbutero 2020-09 Yes [id number] .63mg Inhale Univers l 0.63 mg/3 1-09 0.63 mg 3 ity of mL 00:00: (three) [place] nebulizer 00 times Medical solution daily as Branch needed for Wheezing or Shortness of Breath. albuterol 2020-09 Yes [id number] 2{puff} Inhale 2 [facility] (PROAIR 1-09 Puffs ity of HFA) 90 00:00: every 6 [place] mcg/actuati 00 (six) Medical on inhaler hours as Branc h needed for Wheezing or Shortness of Breath. levalbutero 2020-09 Yes [id number] .63mg Inhale [facility] l 0.63 mg/3 1-09 0.63 mg 3 ity of mL 00:00: (three) [place] nebulizer 00 times Medical solution daily as Branch needed for Wheezing or Shortness of Breath. albuterol 2020-09 Yes [id number] 2{puff} Inhale 2 [facility] (PROAIR 1-09 Puffs ity of HFA) 90 00:00: every 6 [place] mcg/actuati 00 (six) Medical on inhaler hours as Branc h needed for Wheezing or Shortness of Breath. levalbutero 2020-09 Yes [id number] .63mg Inhale [facility] l 0.63 mg/3 1-09 0.63 mg 3 ity of mL 00:00: (three) [place] nebulizer 00 times Medical solution daily as Branch needed for Wheezing or Shortness of Breath. albuterol 2020-09 Yes [id number] 2{puff} Inhale 2 [facility] (PROAIR 1-09 Puffs ity of HFA) 90 00:00: every 6 [place] mcg/actuati 00 (six) Medical on inhaler hours as Branc h needed for Wheezing or Shortness of Breath. levalbutero 2020-09 Yes [id number] .63mg Inhale [facility] l 0.63 mg/3 1-09 0.63 mg 3 ity of mL 00:00: (three) [place] nebulizer 00 times Medical solution daily as Branch needed for Wheezing or Shortness of Breath. albuterol 2020-09 Yes [id number] 2{puff} Inhale 2 [facility] (PROAIR 1-09 Puffs ity of HFA) 90 00:00: every 6 [place] mcg/actuati 00 (six) Medical on inhaler hours as Branc h needed for Wheezing or Shortness of Breath. levalbutero 2020-09 Yes [id number] .63mg Inhale [facility] l 0.63 mg/3 1-09 0.63 mg 3 ity of mL 00:00: (three) [place] nebulizer 00 times Medical solution daily as Branch needed for Wheezing or Shortness of Breath. albuterol 2020-09 Yes [id number] 2{puff} Inhale 2 [facility] (PROAIR 1-09 Puffs ity of HFA) 90 00:00: every 6 [place] mcg/actuati 00 (six) Medical on inhaler hours as Branc h needed for Wheezing or Shortness of Breath. levalbutero 2020-09 Yes [id number] .63mg Inhale [facility] l 0.63 mg/3 1-09 0.63 mg 3 ity of mL 00:00: (three) [place] nebulizer 00 times Medical solution daily as Branch needed for Wheezing or Shortness of Breath. albuterol 2020-09 Yes [id number] 2{puff} Inhale 2 [facility] (PROAIR 1-09 Puffs ity of HFA) 90 00:00: every 6 [place] mcg/actuati 00 (six) Medical on inhaler hours as Branc h needed for Wheezing or Shortness of Breath. levalbutero 2020-09 Yes [id number] .63mg Inhale [facility] l 0.63 mg/3 1-09 0.63 mg 3 ity of mL 00:00: (three) [place] nebulizer 00 times Medical solution daily as Branch needed for Wheezing or Shortness of Breath. albuterol 2020-09 Yes [id number] 2{puff} Inhale 2 [facility] (PROAIR 1-09 Puffs ity of HFA) 90 00:00: every 6 [place] mcg/actuati 00 (six) Medical on inhaler hours as Branc h needed for Wheezing or Shortness of Breath. levalbutero 2020-09 Yes [id number] .63mg Inhale [facility] l 0.63 mg/3 1-09 0.63 mg 3 ity of mL 00:00: (three) [place] nebulizer 00 times Medical solution daily as Branch needed for Wheezing or Shortness of Breath. albuterol 2020-09 Yes [id number] 2{puff} Inhale 2 [facility] (PROAIR 1-09 Puffs ity of HFA) 90 00:00: every 6 [place] mcg/actuati 00 (six) Medical on inhaler hours as Branc h needed for Wheezing or Shortness of Breath. rosuvastati 2020-09 Yes [id number] 10mg Take 1 [facility] n 10 mg 1-09 tablet by ity of tablet 00:00: mouth at [place] 00 bedtime. Medical Branch cyanocobala 2020-09 Yes [id number] 1000ug 1 mL by [facility] min 1,000 1-09 Intramuscu ity of mcg/mL 00:00: lar route [place] injection 00 every 2 Medical (two) Branch weeks. levothyroxi 2020-09 Yes [id number] 50ug Take 1 [facility] ne 50 mcg 1-09 tablet by ity o f tablet 00:00: mouth [place] 00 every Medical morning. Branch fluticasone 2020-09 Yes [id number] 2{puff} Inhale 2 [facility] propionate 1-09 Puffs ity of (FLOVENT 00:00: every 12 [place] HFA) 110 00 (twelve) Medical mcg/actuati hours. Branch on inhaler Rinse mouth after each use. levalbutero 2020-09 Yes [id number] .63mg Inhale Univers l 0.63 mg/3 -09 0.63 mg 3 ity of mL 00:00: (three) [place] nebulizer 00 times Medical solution daily as Branch needed for Wheezing or Shortness of Breath. losartan 50 2020-09 Yes [id number] 50mg Take 1 [facility] mg tablet -09 tablet by ity o f 00:00: mouth 2 [place] 00 (two) Medical times Branch daily. clotrimazol 2020-09 Yes [id number] Apply to [facility] e-betametha 10-04 area(s) 2 ity of sone cream 00:00: (two) [place] 00 times Medical daily. Branch cyclobenzap 2020-09 Yes [id number] TAKE 1 [facility] rine 5 mg 1-09 TABLET BY ity o f tablet 00:00: MOUTH [place] 00 EVERY 8 Medical HOURS Branch NEEDED econazole 2020-09 Yes [id number] Apply to [facility] nitrate 1 % 09 area(s) 2 ity of cream 00:00: (two) [place] 00 times Medical daily. Branch albuterol 2020-09 Yes [id number] 2{puff} Inhale 2 [facility] (PROAIR 1-09 Puffs ity of HFA) 90 00:00: every 6 [place] mcg/actuati 00 (six) Medical on inhaler hours as Branc h needed for Wheezing or Shortness of Breath. triamcinolo 2020-09 Yes [id number] Apply to [facility] ne 0.025 % 1-09 area(s) 3 ity of ointment 00:00: (three) [place] 00 times Medical daily. For Branch itching diltiazem 2020-09 Yes [id number] 120mg Take 1 U nivers (CARTIA XT) -09 capsule by it y of 120 mg 24 00:00: mouth 2 [place] hr capsule 00 (two) Medical times Branch daily. rosuvastati 2020-09 Yes [id number] 10mg Take 1 [facility] n 10 mg -09 tablet by ity of tablet 00:00: mouth at [place] 00 bedtime. Medical Branch cyanocobala 2020-09 Yes [id number] 1000ug 1 mL by [facility] min 1,000 -09 Intramuscu ity of mcg/mL 00:00: lar route [place] injection 00 every 2 Medical (two) Branch weeks. levothyroxi 2020-09 Yes [id number] 50ug Take 1 [facility] ne 50 mcg -09 tablet by ity o f tablet 00:00: mouth [place] 00 every Medical morning. Branch fluticasone 2020-09 Yes [id number] 2{puff} Inhale 2 [facility] propionate 1-09 Puffs ity of (FLOVENT 00:00: every 12 [place] HFA) 110 00 (twelve) Medical mcg/actuati hours. Branch on inhaler Rinse mouth after each use. levalbutero 2020-09 Yes [id number] .63mg Inhale [facility] l 0.63 mg/3 1-09 0.63 mg 3 ity of mL 00:00: (three) [place] nebulizer 00 times Medical solution daily as Branch needed for Wheezing or Shortness of Breath. losartan 50 2020-09 Yes [id number] 50mg Take 1 [facility] mg tablet 1-09 tablet by ity o f 00:00: mouth 2 [place] 00 (two) Medical times Branch daily. clotrimazol 2020-09 Yes [id number] Apply to [facility] e-betametha -09 area(s) 2 ity of sone cream 00:00: (two) [place] 00 times Medical daily. Branch cyclobenzap 2020-09 Yes [id number] TAKE 1 [facility] rine 5 mg 1-09 TABLET BY ity o f tablet 00:00: MOUTH [place] 00 EVERY 8 Medical HOURS Branch NEEDED econazole 2020-09 Yes [id number] Apply to [facility] nitrate 1 % 1-09 area(s) 2 ity of cream 00:00: (two) [place] 00 times Medical daily. Branch albuterol 2020-09 Yes [id number] 2{puff} Inhale 2 [facility] (PROAIR 1-09 Puffs ity of HFA) 90 00:00: every 6 [place] mcg/actuati 00 (six) Medical on inhaler hours as Branc h needed for Wheezing or Shortness of Breath. triamcinolo 2020-09 Yes [id number] Apply to [facility] ne 0.025 % 1-09 area(s) 3 ity of ointment 00:00: (three) [place] 00 times Medical daily. For Branch itching diltiazem 2020-09 Yes [id number] 120mg Take 1 U nivers (CARTIA XT) 1-09 capsule by it y of 120 mg 24 00:00: mouth 2 [place] hr capsule 00 (two) Medical times Branch daily. cyanocobala 2020-09 Yes [id number] 1000ug 1 mL by [facility] min 1,000 1-09 Intramuscu ity of mcg/mL 00:00: lar route [place] injection 00 every 2 Medical (two) Branch weeks. levothyroxi 2020-09 Yes [id number] 50ug Take 1 [facility] ne 50 mcg 1-09 tablet by ity o f tablet 00:00: mouth [place] 00 every Medical morning. Branch fluticasone 2020-09 Yes [id number] 2{puff} Inhale 2 [facility] propionate 1-09 Puffs ity of (FLOVENT 00:00: every 12 [place] HFA) 110 00 (twelve) Medical mcg/actuati hours. Branch on inhaler Rinse mouth after each use. levalbutero 2020-09 Yes [id number] .63mg Inhale [facility] l 0.63 mg/3 1-09 0.63 mg 3 ity of mL 00:00: (three) [place] nebulizer 00 times Medical solution daily as Branch needed for Wheezing or Shortness of Breath. losartan 50 2020-09 Yes [id number] 50mg Take 1 [facility] mg tablet 1-09 tablet by ity o f 00:00: mouth 2 [place] 00 (two) Medical times Branch daily. clotrimazol 2020-09 Yes [id number] Apply to [facility] e-betametha 09 area(s) 2 ity of sone cream 00:00: (two) [place] 00 times Medical daily. Branch cyclobenzap 2020-09 Yes [id number] TAKE 1 [facility] rine 5 mg -09 TABLET BY ity o f tablet 00:00: MOUTH [place] 00 EVERY 8 Medical HOURS Branch NEEDED econazole 2020-09 Yes [id number] Apply to [facility] nitrate 1 % 10-04 area(s) 2 ity of cream 00:00: (two) [place] 00 times Medical daily. Branch albuterol 2020-09 Yes [id number] 2{puff} Inhale 2 [facility] (PROAIR 1-09 Puffs ity of HFA) 90 00:00: every 6 [place] mcg/actuati 00 (six) Medical on inhaler hours as Branc h needed for Wheezing or Shortness of Breath. triamcinolo 2020-09 Yes [id number] Apply to [facility] ne 0.025 % 10-04 area(s) 3 ity of ointment 00:00: (three) [place] 00 times Medical daily. For Branch itching diltiazem 2020-09 Yes [id number] 120mg Take 1 [facility] nivers (CARTIA XT) 10-04 capsule by it y of 120 mg 24 00:00: mouth 2 [place] hr capsule 00 (two) Medical times Branch daily. cyanocobala 2020-09 Yes [id number] 1000ug 1 mL by [facility] min 1,000 -09 Intramuscu ity of mcg/mL 00:00: lar route [place] injection 00 every 2 Medical (two) Branch weeks. levothyroxi 2020-09 Yes [id number] 50ug Take 1 [facility] ne 50 mcg -09 tablet by ity o f tablet 00:00: mouth [place] 00 every Medical morning. Branch fluticasone 2020-09 Yes [id number] 2{puff} Inhale 2 [facility] propionate 1-09 Puffs ity of (FLOVENT 00:00: every 12 [place] HFA) 110 00 (twelve) Medical mcg/actuati hours. Branch on inhaler Rinse mouth after each use. levalbutero 2020-09 Yes [id number] .63mg Inhale [facility] l 0.63 mg/3 1-09 0.63 mg 3 ity of mL 00:00: (three) [place] nebulizer 00 times Medical solution daily as Branch needed for Wheezing or Shortness of Breath. losartan 50 2020-09 Yes [id number] 50mg Take 1 [facility] mg tablet 1-09 tablet by ity o f 00:00: mouth 2 [place] 00 (two) Medical times Branch daily. clotrimazol 2020-09 Yes [id number] Apply to Univers e-betametha -09 area(s) 2 ity of sone cream 00:00: (two) [place] 00 times Medical daily. Branch cyclobenzap 2020-09 Yes [id number] TAKE 1 [facility] rine 5 mg -09 TABLET BY ity o f tablet 00:00: MOUTH [place] 00 EVERY 8 Medical HOURS Branch NEEDED econazole 2020-09 Yes [id number] Apply to [facility] nitrate 1 % 10-04 area(s) 2 ity of cream 00:00: (two) [place] 00 times Medical daily. Branch albuterol 2020-09 Yes [id number] 2{puff} Inhale 2 [facility] (PROAIR -09 Puffs ity of HFA) 90 00:00: every 6 [place] mcg/actuati 00 (six) Medical on inhaler hours as Branc h needed for Wheezing or Shortness of Breath. triamcinolo 2020-09 Yes [id number] Apply to [facility] ne 0.025 % 10-04 area(s) 3 ity of ointment 00:00: (three) [place] 00 times Medical daily. For Branch itching diltiazem 2020-09 Yes [id number] 120mg Take 1 [facility] (CARTIA XT) -09 capsule by it y of 120 mg 24 00:00: mouth 2 [place] hr capsule 00 (two) Medical times Branch daily. cyanocobala 2020-09 Yes [id number] 1000ug 1 mL by [facility] min 1,000 -09 Intramuscu ity of mcg/mL 00:00: lar route [place] injection 00 every 2 Medical (two) Branch weeks. levothyroxi 2020-09 Yes [id number] 50ug Take 1 [facility] ne 50 mcg -09 tablet by ity o f tablet 00:00: mouth [place] 00 every Medical morning. Branch fluticasone 2020-09 Yes [id number] 2{puff} Inhale 2 [facility] propionate 1-09 Puffs ity of (FLOVENT 00:00: every 12 [place] HFA) 110 00 (twelve) Medical mcg/actuati hours. Branch on inhaler Rinse mouth after each use. levalbutero 2020-09 Yes [id number] .63mg Inhale [facility] l 0.63 mg/3 1-09 0.63 mg 3 ity of mL 00:00: (three) [place] nebulizer 00 times Medical solution daily as Branch needed for Wheezing or Shortness of Breath. losartan 50 2020-09 Yes [id number] 50mg Take 1 [facility] mg tablet -09 tablet by ity o f 00:00: mouth 2 [place] 00 (two) Medical times Branch daily. clotrimazol 2020-09 Yes [id number] Apply to [facility] e-betametha -09 area(s) 2 ity of sone cream 00:00: (two) [place] 00 times Medical daily. Branch cyclobenzap 2020-09 Yes [id number] TAKE 1 [facility] rine 5 mg -09 TABLET BY ity o f tablet 00:00: MOUTH [place] 00 EVERY 8 Medical HOURS Branch NEEDED econazole 2020-09 Yes [id number] Apply to [facility] nitrate 1 % 09 area(s) 2 ity of cream 00:00: (two) [place] 00 times Medical daily. Branch albuterol 2020-09 Yes [id number] 2{puff} Inhale 2 [facility] (PROAIR 1-09 Puffs ity of HFA) 90 00:00: every 6 [place] mcg/actuati 00 (six) Medical on inhaler hours as Branc h needed for Wheezing or Shortness of Breath. triamcinolo 2020-09 Yes [id number] Apply to [facility] ne 0.025 % -09 area(s) 3 ity of ointment 00:00: (three) [place] 00 times Medical daily. For Branch itching diltiazem 2020-09 Yes [id number] 120mg Take 1 [facility] (CARTIA XT) -09 capsule by it y of 120 mg 24 00:00: mouth 2 [place] hr capsule 00 (two) Medical times Branch daily. cyanocobala 2020-09 Yes [id number] 1000ug 1 mL by [facility] min 1,000 1-09 Intramuscu ity of mcg/mL 00:00: lar route [place] injection 00 every 2 Medical (two) Branch weeks. levothyroxi 2020-09 Yes [id number] 50ug Take 1 [facility] ne 50 mcg 1-09 tablet by ity o f tablet 00:00: mouth [place] 00 every Medical morning. Branch fluticasone 2020-09 Yes [id number] 2{puff} Inhale 2 [facility] propionate 1-09 Puffs ity of (FLOVENT 00:00: every 12 [place] HFA) 110 00 (twelve) Medical mcg/actuati hours. Branch on inhaler Rinse mouth after each use. levalbutero 2020-09 Yes [id number] .63mg Inhale [facility] l 0.63 mg/3 1-09 0.63 mg 3 ity of mL 00:00: (three) [place] nebulizer 00 times Medical solution daily as Branch needed for Wheezing or Shortness of Breath. losartan 50 2020-09 Yes [id number] 50mg Take 1 [facility] mg tablet 1-09 tablet by ity o f 00:00: mouth 2 [place] 00 (two) Medical times Branch daily. clotrimazol 2020-09 Yes [id number] Apply to [facility] e-betametha 1-09 area(s) 2 ity of sone cream 00:00: (two) [place] 00 times Medical daily. Branch cyclobenzap 2020-09 Yes [id number] TAKE 1 [facility] rine 5 mg 1-09 TABLET BY ity o f tablet 00:00: MOUTH [place] 00 EVERY 8 Medical HOURS Branch NEEDED econazole 2020-09 Yes [id number] Apply to [facility] nitrate 1 % 1-09 area(s) 2 ity of cream 00:00: (two) [place] 00 times Medical daily. Branch albuterol 2020-09 Yes [id number] 2{puff} Inhale 2 [facility] (PROAIR 1-09 Puffs ity of HFA) 90 00:00: every 6 [place] mcg/actuati 00 (six) Medical on inhaler hours as Branc h needed for Wheezing or Shortness of Breath. triamcinolo 2020-09 Yes [id number] Apply to [facility] ne 0.025 % 1-09 area(s) 3 ity of ointment 00:00: (three) [place] 00 times Medical daily. For Branch itching diltiazem 2020-09 Yes [id number] 120mg Take 1 [facility] (CARTIA XT) 1-09 capsule by it y of 120 mg 24 00:00: mouth 2 [place] hr capsule 00 (two) Medical times Branch daily. cyanocobala 2020-09 Yes [id number] 1000ug 1 mL by [facility] min 1,000 -09 Intramuscu ity of mcg/mL 00:00: lar route [place] injection 00 every 2 Medical (two) Branch weeks. levothyroxi 2020-09 Yes [id number] 50ug Take 1 [facility] ne 50 mcg -09 tablet by ity o f tablet 00:00: mouth [place] 00 every Medical morning. Branch fluticasone 2020-09 Yes [id number] 2{puff} Inhale 2 [facility] propionate 1-09 Puffs ity of (FLOVENT 00:00: every 12 [place] HFA) 110 00 (twelve) Medical mcg/actuati hours. Branch on inhaler Rinse mouth after each use. levalbutero 2020-09 Yes [id number] .63mg Inhale [facility] l 0.63 mg/3 -09 0.63 mg 3 ity of mL 00:00: (three) [place] nebulizer 00 times Medical solution daily as Branch needed for Wheezing or Shortness of Breath. losartan 50 2020-09 Yes [id number] 50mg Take 1 [facility] mg tablet -09 tablet by ity o f 00:00: mouth 2 [place] 00 (two) Medical times Branch daily. clotrimazol 2020-09 Yes [id number] Apply to [facility] e-betametha 10-04 area(s) 2 ity of sone cream 00:00: (two) [place] 00 times Medical daily. Branch cyclobenzap 2020-09 Yes [id number] TAKE 1 [facility] rine 5 mg 1-09 TABLET BY ity o f tablet 00:00: MOUTH [place] 00 EVERY 8 Medical HOURS Branch NEEDED econazole 2020-09 Yes [id number] Apply to [facility] nitrate 1 % -09 area(s) 2 ity of cream 00:00: (two) [place] 00 times Medical daily. Branch albuterol 2020-09 Yes [id number] 2{puff} Inhale 2 [facility] (PROAIR 1-09 Puffs ity of HFA) 90 00:00: every 6 [place] mcg/actuati 00 (six) Medical on inhaler hours as Branc h needed for Wheezing or Shortness of Breath. triamcinolo 2020-09 Yes [id number] Apply to [facility] ne 0.025 % -09 area(s) 3 ity of ointment 00:00: (three) [place] 00 times Medical daily. For Branch itching diltiazem 2020-09 Yes [id number] 120mg Take 1 [facility] (CARTIA XT) -09 capsule by it y of 120 mg 24 00:00: mouth 2 [place] hr capsule 00 (two) Medical times Branch daily. cyanocobala 2020-09 Yes [id number] 1000ug 1 mL by [facility] min 1,000 1-09 Intramuscu ity of mcg/mL 00:00: lar route [place] injection 00 every 2 Medical (two) Branch weeks. levothyroxi 2020-09 Yes [id number] 50ug Take 1 [facility] ne 50 mcg -09 tablet by ity o f tablet 00:00: mouth [place] 00 every Medical morning. Branch fluticasone 2020-09 Yes [id number] 2{puff} Inhale 2 [facility] propionate 1-09 Puffs ity of (FLOVENT 00:00: every 12 [place] HFA) 110 00 (twelve) Medical mcg/actuati hours. Branch on inhaler Rinse mouth after each use. levalbutero 2020-09 Yes [id number] .63mg Inhale [facility] l 0.63 mg/3 1-09 0.63 mg 3 ity of mL 00:00: (three) [place] nebulizer 00 times Medical solution daily as Branch needed for Wheezing or Shortness of Breath. losartan 50 2020-09 Yes [id number] 50mg Take 1 [facility] mg tablet -09 tablet by ity o f 00:00: mouth 2 [place] 00 (two) Medical times Branch daily. clotrimazol 2020-09 Yes [id number] Apply to [facility] e-betametha 09 area(s) 2 ity of sone cream 00:00: (two) [place] 00 times Medical daily. Branch cyclobenzap 2020-09 Yes [id number] TAKE 1 [facility] rine 5 mg 1-09 TABLET BY ity o f tablet 00:00: MOUTH [place] 00 EVERY 8 Medical HOURS Branch NEEDED econazole 2020-09 Yes [id number] Apply to [facility] nitrate 1 % -09 area(s) 2 ity of cream 00:00: (two) [place] 00 times Medical daily. Branch albuterol 2020-09 Yes [id number] 2{puff} Inhale 2 [facility] (PROAIR 1-09 Puffs ity of HFA) 90 00:00: every 6 [place] mcg/actuati 00 (six) Medical on inhaler hours as Branc h needed for Wheezing or Shortness of Breath. triamcinolo 2020-09 Yes [id number] Apply to [facility] ne 0.025 % 10-04 area(s) 3 ity of ointment 00:00: (three) [place] 00 times Medical daily. For Branch itching diltiazem 2020-09 Yes [id number] 120mg Take 1 [facility] (CARTIA XT) 10-04 capsule by it y of 120 mg 24 00:00: mouth 2 [place] hr capsule 00 (two) Medical times Branch daily. cyanocobala 2020-09 Yes [id number] 1000ug 1 mL by [facility] min 1,000 -09 Intramuscu ity of mcg/mL 00:00: lar route [place] injection 00 every 2 Medical (two) Branch weeks. levothyroxi 2020-09 Yes [id number] 50ug Take 1 [facility] ne 50 mcg -09 tablet by ity o f tablet 00:00: mouth [place] 00 every Medical morning. Branch fluticasone 2020-09 Yes [id number] 2{puff} Inhale 2 [facility] propionate 1-09 Puffs ity of (FLOVENT 00:00: every 12 [place] HFA) 110 00 (twelve) Medical mcg/actuati hours. Branch on inhaler Rinse mouth after each use. levalbutero 2020-09 Yes [id number] .63mg Inhale [facility] l 0.63 mg/3 1-09 0.63 mg 3 ity of mL 00:00: (three) [place] nebulizer 00 times Medical solution daily as Branch needed for Wheezing or Shortness of Breath. losartan 50 2020-09 Yes [id number] 50mg Take 1 [facility] mg tablet -09 tablet by ity o f 00:00: mouth 2 [place] 00 (two) Medical times Branch daily. clotrimazol 2020-09 Yes [id number] Apply to [facility] e-betametha 1-09 area(s) 2 ity of sone cream 00:00: (two) [place] 00 times Medical daily. Branch cyclobenzap 2020-09 Yes [id number] TAKE 1 [facility] rine 5 mg -09 TABLET BY ity o f tablet 00:00: MOUTH [place] 00 EVERY 8 Medical HOURS Branch NEEDED econazole 2020-09 Yes [id number] Apply to [facility] nitrate 1 % 09 area(s) 2 ity of cream 00:00: (two) [place] 00 times Medical daily. Branch albuterol 2020-09 Yes [id number] 2{puff} Inhale 2 [facility] (PROAIR 1-09 Puffs ity of HFA) 90 00:00: every 6 [place] mcg/actuati 00 (six) Medical on inhaler hours as Branc h needed for Wheezing or Shortness of Breath. triamcinolo 2020-09 Yes [id number] Apply to [facility] ne 0.025 % 10-04 area(s) 3 ity of ointment 00:00: (three) [place] 00 times Medical daily. For Branch itching diltiazem 2020-09 Yes [id number] 120mg Take 1 [facility] (CARTIA XT) 09 capsule by it y of 120 mg 24 00:00: mouth 2 [place] hr capsule 00 (two) Medical times Branch daily. cyanocobala 2020-09 Yes [id number] 1000ug 1 mL by [facility] min 1,000 -09 Intramuscu ity of mcg/mL 00:00: lar route [place] injection 00 every 2 Medical (two) Branch weeks. levothyroxi 2020-09 Yes [id number] 50ug Take 1 [facility] ne 50 mcg 09 tablet by ity o f tablet 00:00: mouth [place] 00 every Medical morning. Branch fluticasone 2020-09 Yes [id number] 2{puff} Inhale 2 [facility] propionate 1-09 Puffs ity of (FLOVENT 00:00: every 12 [place] HFA) 110 00 (twelve) Medical mcg/actuati hours. Branch on inhaler Rinse mouth after each use. levalbutero 2020-09 Yes [id number] .63mg Inhale [facility] l 0.63 mg/3 1-09 0.63 mg 3 ity of mL 00:00: (three) [place] nebulizer 00 times Medical solution daily as Branch needed for Wheezing or Shortness of Breath. losartan 50 2020-09 Yes [id number] 50mg Take 1 [facility] mg tablet 1-09 tablet by ity o f 00:00: mouth 2 [place] 00 (two) Medical times Branch daily. clotrimazol 2020-09 Yes [id number] Apply to [facility] e-betametha 09 area(s) 2 ity of sone cream 00:00: (two) [place] 00 times Medical daily. Branch cyclobenzap 2020-09 Yes [id number] TAKE 1 [facility] rine 5 mg -09 TABLET BY ity o f tablet 00:00: MOUTH [place] 00 EVERY 8 Medical HOURS Branch NEEDED econazole 2020-09 Yes [id number] Apply to [facility] nitrate 1 % 10-04 area(s) 2 ity of cream 00:00: (two) [place] 00 times Medical daily. Branch albuterol 2020-09 Yes [id number] 2{puff} Inhale 2 [facility] (PROAIR 1-09 Puffs ity of HFA) 90 00:00: every 6 [place] mcg/actuati 00 (six) Medical on inhaler hours as Branc h needed for Wheezing or Shortness of Breath. triamcinolo 2020-09 Yes [id number] Apply to [facility] ne 0.025 % 10-04 area(s) 3 ity of ointment 00:00: (three) [place] 00 times Medical daily. For Branch itching diltiazem 2020-09 Yes [id number] 120mg Take 1 [facility] (CARTIA XT) 09 capsule by it y of 120 mg 24 00:00: mouth 2 [place] hr capsule 00 (two) Medical times Branch daily. cyanocobala 2020-09 Yes [id number] 1000ug 1 mL by [facility] min 1,000 -09 Intramuscu ity of mcg/mL 00:00: lar route [place] injection 00 every 2 Medical (two) Branch weeks. levothyroxi 2020-09 Yes [id number] 50ug Take 1 [facility] ne 50 mcg -09 tablet by ity o f tablet 00:00: mouth [place] 00 every Medical morning. Branch fluticasone 2020-09 Yes [id number] 2{puff} Inhale 2 [facility] propionate 1-09 Puffs ity of (FLOVENT 00:00: every 12 [place] HFA) 110 00 (twelve) Medical mcg/actuati hours. Branch on inhaler Rinse mouth after each use. levalbutero 2020-09 Yes [id number] .63mg Inhale [facility] l 0.63 mg/3 1-09 0.63 mg 3 ity of mL 00:00: (three) [place] nebulizer 00 times Medical solution daily as Branch needed for Wheezing or Shortness of Breath. losartan 50 2020-09 Yes [id number] 50mg Take 1 [facility] mg tablet -09 tablet by ity o f 00:00: mouth 2 [place] 00 (two) Medical times Branch daily. clotrimazol 2020-09 Yes [id number] Apply to [facility] e-betametha 09 area(s) 2 ity of sone cream 00:00: (two) [place] 00 times Medical daily. Branch cyclobenzap 2020-09 Yes [id number] TAKE 1 [facility] rine 5 mg 10-04 TABLET BY ity o f tablet 00:00: MOUTH [place] 00 EVERY 8 Medical HOURS Branch NEEDED econazole 2020-09 Yes [id number] Apply to [facility] nitrate 1 % 10-04 area(s) 2 ity of cream 00:00: (two) [place] 00 times Medical daily. Branch albuterol 2020-09 Yes [id number] 2{puff} Inhale 2 [facility] (PROAIR 1-09 Puffs ity of HFA) 90 00:00: every 6 [place] mcg/actuati 00 (six) Medical on inhaler hours as Branc h needed for Wheezing or Shortness of Breath. triamcinolo 2020-09 Yes [id number] Apply to [facility] ne 0.025 % 10-04 area(s) 3 ity of ointment 00:00: (three) [place] 00 times Medical daily. For Branch itching diltiazem 2020-09 Yes [id number] 120mg Take 1 [facility] (CARTIA XT) -09 capsule by it y of 120 mg 24 00:00: mouth 2 [place] hr capsule 00 (two) Medical times Branch daily. cyanocobala 2020-09 Yes [id number] 1000ug 1 mL by [facility] min 1,000 -09 Intramuscu ity of mcg/mL 00:00: lar route [place] injection 00 every 2 Medical (two) Branch weeks. levothyroxi 2020-09 Yes [id number] 50ug Take 1 [facility] ne 50 mcg 1-09 tablet by ity o f tablet 00:00: mouth [place] 00 every Medical morning. Branch fluticasone 2020-09 Yes [id number] 2{puff} Inhale 2 [facility] propionate 1-09 Puffs ity of (FLOVENT 00:00: every 12 [place] HFA) 110 00 (twelve) Medical mcg/actuati hours. Branch on inhaler Rinse mouth after each use. levalbutero 2020-09 Yes [id number] .63mg Inhale [facility] l 0.63 mg/3 1-09 0.63 mg 3 ity of mL 00:00: (three) [place] nebulizer 00 times Medical solution daily as Branch needed for Wheezing or Shortness of Breath. losartan 50 2020-09 Yes [id number] 50mg Take 1 [facility] mg tablet 1-09 tablet by ity o f 00:00: mouth 2 [place] 00 (two) Medical times Branch daily. clotrimazol 2020-09 Yes [id number] Apply to [facility] e-betametha -09 area(s) 2 ity of sone cream 00:00: (two) [place] 00 times Medical daily. Branch cyclobenzap 2020-09 Yes [id number] TAKE 1 [facility] rine 5 mg 1-09 TABLET BY ity o f tablet 00:00: MOUTH [place] 00 EVERY 8 Medical HOURS Branch NEEDED econazole 2020-09 Yes [id number] Apply to [facility] nitrate 1 % 09 area(s) 2 ity of cream 00:00: (two) [place] 00 times Medical daily. Branch albuterol 2020-09 Yes [id number] 2{puff} Inhale 2 [facility] (PROAIR 1-09 Puffs ity of HFA) 90 00:00: every 6 [place] mcg/actuati 00 (six) Medical on inhaler hours as Branc h needed for Wheezing or Shortness of Breath. triamcinolo 2020-09 Yes [id number] Apply to [facility] ne 0.025 % -09 area(s) 3 ity of ointment 00:00: (three) [place] 00 times Medical daily. For Branch itching diltiazem 2020-09 Yes [id number] 120mg Take 1 [facility] (CARTIA XT) -09 capsule by it y of 120 mg 24 00:00: mouth 2 [place] hr capsule 00 (two) Medical times Branch daily. cyanocobala 2020-09 Yes [id number] 1000ug 1 mL by [facility] min 1,000 1-09 Intramuscu ity of mcg/mL 00:00: lar route [place] injection 00 every 2 Medical (two) Branch weeks. levothyroxi 2020-09 Yes [id number] 50ug Take 1 [facility] ne 50 mcg 1-09 tablet by ity o f tablet 00:00: mouth [place] 00 every Medical morning. Branch fluticasone 2020-09 Yes [id number] 2{puff} Inhale 2 [facility] propionate 1-09 Puffs ity of (FLOVENT 00:00: every 12 [place] HFA) 110 00 (twelve) Medical mcg/actuati hours. Branch on inhaler Rinse mouth after each use. levalbutero 2020-09 Yes [id number] .63mg Inhale [facility] l 0.63 mg/3 1-09 0.63 mg 3 ity of mL 00:00: (three) [place] nebulizer 00 times Medical solution daily as Branch needed for Wheezing or Shortness of Breath. losartan 50 2020-09 Yes [id number] 50mg Take 1 [facility] mg tablet 1-09 tablet by ity o f 00:00: mouth 2 [place] 00 (two) Medical times Branch daily. clotrimazol 2020-09 Yes [id number] Apply to [facility] e-betametha -09 area(s) 2 ity of sone cream 00:00: (two) [place] 00 times Medical daily. Branch cyclobenzap 2020-09 Yes [id number] TAKE 1 [facility] rine 5 mg 1-09 TABLET BY ity o f tablet 00:00: MOUTH [place] 00 EVERY 8 Medical HOURS Branch NEEDED econazole 2020-09 Yes [id number] Apply to [facility] nitrate 1 % 1-09 area(s) 2 ity of cream 00:00: (two) [place] 00 times Medical daily. Branch albuterol 2020-09 Yes [id number] 2{puff} Inhale 2 [facility] (PROAIR 1-09 Puffs ity of HFA) 90 00:00: every 6 [place] mcg/actuati 00 (six) Medical on inhaler hours as Branc h needed for Wheezing or Shortness of Breath. triamcinolo 2020-09 Yes [id number] Apply to [facility] ne 0.025 % 1-09 area(s) 3 ity of ointment 00:00: (three) [place] 00 times Medical daily. For Branch itching diltiazem 2020-09 Yes [id number] 120mg Take 1 [facility] n[facility] (CARTIA XT) 09 capsule by it y of 120 mg 24 00:00: mouth 2 [place] hr capsule 00 (two) Medical times Branch daily. cyanocobala 2020-09 Yes [id number] 1000ug 1 mL by [facility] min 1,000 -09 Intramuscu ity of mcg/mL 00:00: lar route [place] injection 00 every 2 Medical (two) Branch weeks. levothyroxi 2020-09 Yes [id number] 50ug Take 1 [facility] ne 50 mcg 09 tablet by ity o f tablet 00:00: mouth [place] 00 every Medical morning. Branch fluticasone 2020-09 Yes [id number] 2{puff} Inhale 2 [facility] propionate -09 Puffs ity of (FLOVENT 00:00: every 12 [place] HFA) 110 00 (twelve) Medical mcg/actuati hours. Branch on inhaler Rinse mouth after each use. levalbutero 2020-09 Yes [id number] .63mg Inhale [facility] l 0.63 mg/3 -09 0.63 mg 3 ity of mL 00:00: (three) [place] nebulizer 00 times Medical solution daily as Branch needed for Wheezing or Shortness of Breath. losartan 50 2020-09 Yes [id number] 50mg Take 1 [facility] mg tablet -09 tablet by ity o f 00:00: mouth 2 [place] 00 (two) Medical times Branch daily. clotrimazol 2020-09 Yes [id number] Apply to [facility] e-betametha 09 area(s) 2 ity of sone cream 00:00: (two) [place] 00 times Medical daily. Branch cyclobenzap 2020-09 Yes [id number] TAKE 1 [facility] rine 5 mg -09 TABLET BY ity o f tablet 00:00: MOUTH [place] 00 EVERY 8 Medical HOURS Branch NEEDED econazole 2020-09 Yes [id number] Apply to [facility] nitrate 1 % 09 area(s) 2 ity of cream 00:00: (two) [place] 00 times Medical daily. Branch albuterol 2020-09 Yes [id number] 2{puff} Inhale 2 [facility] (PROAIR 1-09 Puffs ity of HFA) 90 00:00: every 6 [place] mcg/actuati 00 (six) Medical on inhaler hours as Branc h needed for Wheezing or Shortness of Breath. triamcinolo 2020-09 Yes [id number] Apply to [facility] ne 0.025 % 09 area(s) 3 ity of ointment 00:00: (three) [place] 00 times Medical daily. For Branch itching diltiazem 2020-09 Yes [id number] 120mg Take 1 [facility] n[facility] (CARTIA XT) 09 capsule by it y of 120 mg 24 00:00: mouth 2 [place] hr capsule 00 (two) Medical times Branch daily. cyanocobala 2020-09 Yes [id number] 1000ug 1 mL by [facility] min 1,000 -09 Intramuscu ity of mcg/mL 00:00: lar route [place] injection 00 every 2 Medical (two) Branch weeks. levothyroxi 2020-09 Yes [id number] 50ug Take 1 [facility] ne 50 mcg 09 tablet by ity o f tablet 00:00: mouth [place] 00 every Medical morning. Branch fluticasone 2020-09 Yes [id number] 2{puff} Inhale 2 [facility] propionate 1-09 Puffs ity of (FLOVENT 00:00: every 12 [place] HFA) 110 00 (twelve) Medical mcg/actuati hours. Branch on inhaler Rinse mouth after each use. levalbutero 2020-09 Yes [id number] .63mg Inhale [facility] l 0.63 mg/3 1-09 0.63 mg 3 ity of mL 00:00: (three) [place] nebulizer 00 times Medical solution daily as Branch needed for Wheezing or Shortness of Breath. losartan 50 2020-09 Yes [id number] 50mg Take 1 [facility] mg tablet -09 tablet by ity o f 00:00: mouth 2 [place] 00 (two) Medical times Branch daily. clotrimazol 2020-09 Yes [id number] Apply to [facility] e-betametha 09 area(s) 2 ity of sone cream 00:00: (two) [place] 00 times Medical daily. Branch cyclobenzap 2020-09 Yes [id number] TAKE 1 [facility] rine 5 mg -09 TABLET BY ity o f tablet 00:00: MOUTH [place] 00 EVERY 8 Medical HOURS Branch NEEDED econazole 2020-09 Yes [id number] Apply to [facility] nitrate 1 % 1-09 area(s) 2 ity of cream 00:00: (two) [place] 00 times Medical daily. Branch albuterol 2020-09 Yes [id number] 2{puff} Inhale 2 [facility] (PROAIR 1-09 Puffs ity of HFA) 90 00:00: every 6 [place] mcg/actuati 00 (six) Medical on inhaler hours as Branc h needed for Wheezing or Shortness of Breath. triamcinolo 2020-09 Yes [id number] Apply to [facility] ne 0.025 % 10-04 area(s) 3 ity of ointment 00:00: (three) [place] 00 times Medical daily. For Branch itching diltiazem 2020-09 Yes [id number] 120mg Take 1 [facility] (CARTIA XT) -09 capsule by it y of 120 mg 24 00:00: mouth 2 [place] hr capsule 00 (two) Medical times Branch daily. cyanocobala 2020-09 Yes [id number] 1000ug 1 mL by [facility] min 1,000 1-09 Intramuscu ity of mcg/mL 00:00: lar route [place] injection 00 every 2 Medical (two) Branch weeks. levothyroxi 2020-09 Yes [id number] 50ug Take 1 [facility] ne 50 mcg -09 tablet by ity o f tablet 00:00: mouth [place] 00 every Medical morning. Branch fluticasone 2020-09 Yes [id number] 2{puff} Inhale 2 [facility] propionate 1-09 Puffs ity of (FLOVENT 00:00: every 12 [place] HFA) 110 00 (twelve) Medical mcg/actuati hours. Branch on inhaler Rinse mouth after each use. levalbutero 2020-09 Yes [id number] .63mg Inhale [facility] l 0.63 mg/3 1-09 0.63 mg 3 ity of mL 00:00: (three) [place] nebulizer 00 times Medical solution daily as Branch needed for Wheezing or Shortness of Breath. clotrimazol 2020-09 Yes [id number] Apply to [facility] e-betametha 1-09 area(s) 2 ity of sone cream 00:00: (two) [place] 00 times Medical daily. Branch cyclobenzap 2020-09 Yes [id number] TAKE 1 [facility] rine 5 mg 1-09 TABLET BY ity o f tablet 00:00: MOUTH [place] 00 EVERY 8 Medical HOURS Branch NEEDED econazole 2020-09 Yes [id number] Apply to [facility] nitrate 1 % -09 area(s) 2 ity of cream 00:00: (two) [place] 00 times Medical daily. Branch albuterol 2020-09 Yes [id number] 2{puff} Inhale 2 [facility] (PROAIR 1-09 Puffs ity of HFA) 90 00:00: every 6 [place] mcg/actuati 00 (six) Medical on inhaler hours as Branc h needed for Wheezing or Shortness of Breath. triamcinolo 2020-09 Yes [id number] Apply to [facility] ne 0.025 % 10-04 area(s) 3 ity of ointment 00:00: (three) [place] 00 times Medical daily. For Branch itching cyanocobala 2020-09 Yes [id number] 1000ug 1 mL by [facility] min 1,000 1-09 Intramuscu ity of mcg/mL 00:00: lar route [place] injection 00 every 2 Medical (two) Branch weeks. levothyroxi 2020-09 Yes [id number] 50ug Take 1 [facility] ne 50 mcg -09 tablet by ity o f tablet 00:00: mouth [place] 00 every Medical morning. Branch fluticasone 2020-09 Yes [id number] 2{puff} Inhale 2 [facility] propionate 1-09 Puffs ity of (FLOVENT 00:00: every 12 [place] HFA) 110 00 (twelve) Medical mcg/actuati hours. Branch on inhaler Rinse mouth after each use. levalbutero 2020-09 Yes [id number] .63mg Inhale [facility] l 0.63 mg/3 1-09 0.63 mg 3 ity of mL 00:00: (three) [place] nebulizer 00 times Medical solution daily as Branch needed for Wheezing or Shortness of Breath. clotrimazol 2020-09 Yes [id number] Apply to [facility] e-betametha 1-09 area(s) 2 ity of sone cream 00:00: (two) [place] 00 times Medical daily. Branch cyclobenzap 2020-09 Yes [id number] TAKE 1 [facility] rine 5 mg 1-09 TABLET BY ity o f tablet 00:00: MOUTH [place] 00 EVERY 8 Medical HOURS Branch NEEDED econazole 2020-09 Yes [id number] Apply to [facility] nitrate 1 % -09 area(s) 2 ity of cream 00:00: (two) [place] 00 times Medical daily. Branch albuterol 2020-09 Yes [id number] 2{puff} Inhale 2 [facility] (PROAIR 1-09 Puffs ity of HFA) 90 00:00: every 6 [place] mcg/actuati 00 (six) Medical on inhaler hours as Branc h needed for Wheezing or Shortness of Breath. triamcinolo 2020-09 Yes [id number] Apply to [facility] ne 0.025 % 10-04 area(s) 3 ity of ointment 00:00: (three) [place] 00 times Medical daily. For Branch itching cyanocobala 2020-09 Yes [id number] 1000ug 1 mL by [facility] min 1,000 -09 Intramuscu ity of mcg/mL 00:00: lar route [place] injection 00 every 2 Medical (two) Branch weeks. levothyroxi 2020-09 Yes [id number] 50ug Take 1 [facility] ne 50 mcg -09 tablet by ity o f tablet 00:00: mouth [place] 00 every Medical morning. Branch fluticasone 2020-09 Yes [id number] 2{puff} Inhale 2 [facility] propionate 1-09 Puffs ity of (FLOVENT 00:00: every 12 [place] HFA) 110 00 (twelve) Medical mcg/actuati hours. Branch on inhaler Rinse mouth after each use. levalbutero 2020-09 Yes [id number] .63mg Inhale [facility] l 0.63 mg/3 1-09 0.63 mg 3 ity of mL 00:00: (three) [place] nebulizer 00 times Medical solution daily as Branch needed for Wheezing or Shortness of Breath. clotrimazol 2020-09 Yes [id number] Apply to [facility] e-betametha -09 area(s) 2 ity of sone cream 00:00: (two) [place] 00 times Medical daily. Branch cyclobenzap 2020-09 Yes [id number] TAKE 1 [facility] rine 5 mg 1-09 TABLET BY ity o f tablet 00:00: MOUTH [place] 00 EVERY 8 Medical HOURS Branch NEEDED econazole 2020-09 Yes [id number] Apply to [facility] nitrate 1 % 1-09 area(s) 2 ity of cream 00:00: (two) [place] 00 times Medical daily. Branch albuterol 2020-09 Yes [id number] 2{puff} Inhale 2 [facility] (PROAIR 1-09 Puffs ity of HFA) 90 00:00: every 6 [place] mcg/actuati 00 (six) Medical on inhaler hours as Branc h needed for Wheezing or Shortness of Breath. triamcinolo 2020-09 Yes [id number] Apply to [facility] ne 0.025 % 1-09 area(s) 3 ity of ointment 00:00: (three) [place] 00 times Medical daily. For Branch itching cyanocobala 2020-09 Yes [id number] 1000ug 1 mL by [facility] min 1,000 1-09 Intramuscu ity of mcg/mL 00:00: lar route [place] injection 00 every 2 Medical (two) Branch weeks. levothyroxi 2020-09 Yes [id number] 50ug Take 1 [facility] ne 50 mcg 1-09 tablet by ity o f tablet 00:00: mouth [place] 00 every Medical morning. Branch fluticasone 2020-09 Yes [id number] 2{puff} Inhale 2 [facility] propionate 1-09 Puffs ity of (FLOVENT 00:00: every 12 [place] HFA) 110 00 (twelve) Medical mcg/actuati hours. Branch on inhaler Rinse mouth after each use. levalbutero 2020-09 Yes [id number] .63mg Inhale [facility] l 0.63 mg/3 1-09 0.63 mg 3 ity of mL 00:00: (three) [place] nebulizer 00 times Medical solution daily as Branch needed for Wheezing or Shortness of Breath. clotrimazol 2020-09 Yes [id number] Apply to [facility] e-betametha 1-09 area(s) 2 ity of sone cream 00:00: (two) [place] 00 times Medical daily. Branch cyclobenzap 2020-09 Yes [id number] TAKE 1 [facility] rine 5 mg 1-09 TABLET BY ity o f tablet 00:00: MOUTH [place] 00 EVERY 8 Medical HOURS Branch NEEDED econazole 2020-09 Yes [id number] Apply to [facility] nitrate 1 % -09 area(s) 2 ity of cream 00:00: (two) [place] 00 times Medical daily. Branch albuterol 2020-09 Yes [id number] 2{puff} Inhale 2 [facility] (PROAIR 1-09 Puffs ity of HFA) 90 00:00: every 6 [place] mcg/actuati 00 (six) Medical on inhaler hours as Branc h needed for Wheezing or Shortness of Breath. triamcinolo 2020-09 Yes [id number] Apply to [facility] ne 0.025 % -09 area(s) 3 ity of ointment 00:00: (three) [place] 00 times Medical daily. For Branch itching cyanocobala 2020-09 Yes [id number] 1000ug 1 mL by [facility] min 1,000 -09 Intramuscu ity of mcg/mL 00:00: lar route [place] injection 00 every 2 Medical (two) Branch weeks. levothyroxi 2020-09 Yes [id number] 50ug Take 1 [facility] ne 50 mcg -09 tablet by ity o f tablet 00:00: mouth [place] 00 every Medical morning. Branch fluticasone 2020-09 Yes [id number] 2{puff} Inhale 2 [facility] propionate 1-09 Puffs ity of (FLOVENT 00:00: every 12 [place] HFA) 110 00 (twelve) Medical mcg/actuati hours. Branch on inhaler Rinse mouth after each use. levalbutero 2020-09 Yes [id number] .63mg Inhale [facility] l 0.63 mg/3 1-09 0.63 mg 3 ity of mL 00:00: (three) [place] nebulizer 00 times Medical solution daily as Branch needed for Wheezing or Shortness of Breath. clotrimazol 2020-09 Yes [id number] Apply to [facility] e-betametha -09 area(s) 2 ity of sone cream 00:00: (two) [place] 00 times Medical daily. Branch cyclobenzap 2020-09 Yes [id number] TAKE 1 [facility] rine 5 mg 1-09 TABLET BY ity o f tablet 00:00: MOUTH [place] 00 EVERY 8 Medical HOURS Branch NEEDED econazole 2020-09 Yes [id number] Apply to [facility] nitrate 1 % -09 area(s) 2 ity of cream 00:00: (two) [place] 00 times Medical daily. Branch albuterol 2020-09 Yes [id number] 2{puff} Inhale 2 [facility] (PROAIR 1-09 Puffs ity of HFA) 90 00:00: every 6 [place] mcg/actuati 00 (six) Medical on inhaler hours as Branc h needed for Wheezing or Shortness of Breath. triamcinolo 2020-09 Yes [id number] Apply to [facility] ne 0.025 % 1-09 area(s) 3 ity of ointment 00:00: (three) [place] 00 times Medical daily. For Branch itching cyanocobala 2020-09 Yes [id number] 1000ug 1 mL by [facility] min 1,000 1-09 Intramuscu ity of mcg/mL 00:00: lar route [place] injection 00 every 2 Medical (two) Branch weeks. levothyroxi 2020-09 Yes [id number] 50ug Take 1 [facility] ne 50 mcg 1-09 tablet by ity o f tablet 00:00: mouth [place] 00 every Medical morning. Branch fluticasone 2020-09 Yes [id number] 2{puff} Inhale 2 [facility] propionate 1-09 Puffs ity of (FLOVENT 00:00: every 12 [place] HFA) 110 00 (twelve) Medical mcg/actuati hours. Branch on inhaler Rinse mouth after each use. levalbutero 2020-09 Yes [id number] .63mg Inhale [facility] l 0.63 mg/3 1-09 0.63 mg 3 ity of mL 00:00: (three) [place] nebulizer 00 times Medical solution daily as Branch needed for Wheezing or Shortness of Breath. clotrimazol 2020-09 Yes [id number] Apply to [facility] e-betametha 1-09 area(s) 2 ity of sone cream 00:00: (two) [place] 00 times Medical daily. Branch cyclobenzap 2020-09 Yes [id number] TAKE 1 [facility] rine 5 mg 1-09 TABLET BY ity o f tablet 00:00: MOUTH [place] 00 EVERY 8 Medical HOURS Branch NEEDED econazole 2020-09 Yes [id number] Apply to [facility] nitrate 1 % -09 area(s) 2 ity of cream 00:00: (two) [place] 00 times Medical daily. Branch albuterol 2020-09 Yes [id number] 2{puff} Inhale 2 [facility] (PROAIR 1-09 Puffs ity of HFA) 90 00:00: every 6 [place] mcg/actuati 00 (six) Medical on inhaler hours as Branc h needed for Wheezing or Shortness of Breath. triamcinolo 2020-09 Yes [id number] Apply to [facility] ne 0.025 % 1-09 area(s) 3 ity of ointment 00:00: (three) [place] 00 times Medical daily. For Branch itching cyanocobala 2020-09 Yes [id number] 1000ug 1 mL by [facility] min 1,000 1-09 Intramuscu ity of mcg/mL 00:00: lar route [place] injection 00 every 2 Medical (two) Branch weeks. levothyroxi 2020-09 Yes [id number] 50ug Take 1 [facility] ne 50 mcg 1-09 tablet by ity o f tablet 00:00: mouth [place] 00 every Medical morning. Branch fluticasone 2020-09 Yes [id number] 2{puff} Inhale 2 [facility] propionate 1-09 Puffs ity of (FLOVENT 00:00: every 12 [place] HFA) 110 00 (twelve) Medical mcg/actuati hours. Branch on inhaler Rinse mouth after each use. levalbutero 2020-09 Yes [id number] .63mg Inhale [facility] l 0.63 mg/3 1-09 0.63 mg 3 ity of mL 00:00: (three) [place] nebulizer 00 times Medical solution daily as Branch needed for Wheezing or Shortness of Breath. clotrimazol 2020-09 Yes [id number] Apply to [facility] e-betametha -09 area(s) 2 ity of sone cream 00:00: (two) [place] 00 times Medical daily. Branch cyclobenzap 2020-09 Yes [id number] TAKE 1 [facility] rine 5 mg 1-09 TABLET BY ity o f tablet 00:00: MOUTH [place] 00 EVERY 8 Medical HOURS Branch NEEDED econazole 2020-09 Yes [id number] Apply to [facility] nitrate 1 % -09 area(s) 2 ity of cream 00:00: (two) [place] 00 times Medical daily. Branch albuterol 2020-09 Yes [id number] 2{puff} Inhale 2 [facility] (PROAIR 1-09 Puffs ity of HFA) 90 00:00: every 6 [place] mcg/actuati 00 (six) Medical on inhaler hours as Branc h needed for Wheezing or Shortness of Breath. triamcinolo 2020-09 Yes [id number] Apply to [facility] ne 0.025 % 09 area(s) 3 ity of ointment 00:00: (three) [place] 00 times Medical daily. For Branch itching cyanocobala 2020-09 Yes [id number] 1000ug 1 mL by [facility] min 1,000 -09 Intramuscu ity of mcg/mL 00:00: lar route [place] injection 00 every 2 Medical (two) Branch weeks. levothyroxi 2020-09 Yes [id number] 50ug Take 1 [facility] ne 50 mcg -09 tablet by ity o f tablet 00:00: mouth [place] 00 every Medical morning. Branch fluticasone 2020-09 Yes [id number] 2{puff} Inhale 2 [facility] propionate 1-09 Puffs ity of (FLOVENT 00:00: every 12 [place] HFA) 110 00 (twelve) Medical mcg/actuati hours. Branch on inhaler Rinse mouth after each use. levalbutero 2020-09 Yes [id number] .63mg Inhale [facility] l 0.63 mg/3 -09 0.63 mg 3 ity of mL 00:00: (three) [place] nebulizer 00 times Medical solution daily as Branch needed for Wheezing or Shortness of Breath. clotrimazol 2020-09 Yes [id number] Apply to [facility] e-betametha 10-04 area(s) 2 ity of sone cream 00:00: (two) [place] 00 times Medical daily. Branch cyclobenzap 2020-09 Yes [id number] TAKE 1 [facility] rine 5 mg -09 TABLET BY ity o f tablet 00:00: MOUTH [place] 00 EVERY 8 Medical HOURS Branch NEEDED econazole 2020-09 Yes [id number] Apply to [facility] nitrate 1 % -09 area(s) 2 ity of cream 00:00: (two) [place] 00 times Medical daily. Branch albuterol 2020-09 Yes [id number] 2{puff} Inhale 2 [facility] (PROAIR 1-09 Puffs ity of HFA) 90 00:00: every 6 [place] mcg/actuati 00 (six) Medical on inhaler hours as Branc h needed for Wheezing or Shortness of Breath. triamcinolo 2020-09 Yes [id number] Apply to [facility] ne 0.025 % 1-09 area(s) 3 ity of ointment 00:00: (three) [place] 00 times Medical daily. For Branch itching cyanocobala 2020-09 Yes [id number] 1000ug 1 mL by [facility] min 1,000 1-09 Intramuscu ity of mcg/mL 00:00: lar route [place] injection 00 every 2 Medical (two) Branch weeks. levothyroxi 2020-09 Yes [id number] 50ug Take 1 [facility] ne 50 mcg 1-09 tablet by ity o f tablet 00:00: mouth [place] 00 every Medical morning. Branch fluticasone 2020-09 Yes [id number] 2{puff} Inhale 2 [facility] propionate 1-09 Puffs ity of (FLOVENT 00:00: every 12 [place] HFA) 110 00 (twelve) Medical mcg/actuati hours. Branch on inhaler Rinse mouth after each use. levalbutero 2020-09 Yes [id number] .63mg Inhale [facility] l 0.63 mg/3 1-09 0.63 mg 3 ity of mL 00:00: (three) [place] nebulizer 00 times Medical solution daily as Branch needed for Wheezing or Shortness of Breath. clotrimazol 2020-09 Yes [id number] Apply to [facility] e-betametha 09 area(s) 2 ity of sone cream 00:00: (two) [place] 00 times Medical daily. Branch cyclobenzap 2020-09 Yes [id number] TAKE 1 [facility] rine 5 mg -09 TABLET BY ity o f tablet 00:00: MOUTH [place] 00 EVERY 8 Medical HOURS Branch NEEDED econazole 2020-09 Yes [id number] Apply to [facility] nitrate 1 % -09 area(s) 2 ity of cream 00:00: (two) [place] 00 times Medical daily. Branch albuterol 2020-09 Yes [id number] 2{puff} Inhale 2 [facility] (PROAIR 1-09 Puffs ity of HFA) 90 00:00: every 6 [place] mcg/actuati 00 (six) Medical on inhaler hours as Branc h needed for Wheezing or Shortness of Breath. triamcinolo 2020-09 Yes [id number] Apply to [facility] ne 0.025 % 09 area(s) 3 ity of ointment 00:00: (three) [place] 00 times Medical daily. For Branch itching cyanocobala 2020-09 Yes [id number] 1000ug 1 mL by [facility] min 1,000 -09 Intramuscu ity of mcg/mL 00:00: lar route [place] injection 00 every 2 Medical (two) Branch weeks. levothyroxi 2020-09 Yes [id number] 50ug Take 1 [facility] ne 50 mcg -09 tablet by ity o f tablet 00:00: mouth [place] 00 every Medical morning. Branch fluticasone 2020-09 Yes [id number] 2{puff} Inhale 2 [facility] propionate -09 Puffs ity of (FLOVENT 00:00: every 12 [place] HFA) 110 00 (twelve) Medical mcg/actuati hours. Branch on inhaler Rinse mouth after each use. levalbutero 2020-09 Yes [id number] .63mg Inhale [facility] l 0.63 mg/3 -09 0.63 mg 3 ity of mL 00:00: (three) [place] nebulizer 00 times Medical solution daily as Branch needed for Wheezing or Shortness of Breath. clotrimazol 2020-09 Yes [id number] Apply to [facility] e-betametha 10-04 area(s) 2 ity of sone cream 00:00: (two) [place] 00 times Medical daily. Branch cyclobenzap 2020-09 Yes [id number] TAKE 1 [facility] rine 5 mg -09 TABLET BY ity o f tablet 00:00: MOUTH [place] 00 EVERY 8 Medical HOURS Branch NEEDED econazole 2020-09 Yes [id number] Apply to [facility] nitrate 1 % 09 area(s) 2 ity of cream 00:00: (two) [place] 00 times Medical daily. Branch albuterol 2020-09 Yes [id number] 2{puff} Inhale 2 [facility] (PROAIR 1-09 Puffs ity of HFA) 90 00:00: every 6 [place] mcg/actuati 00 (six) Medical on inhaler hours as Branc h needed for Wheezing or Shortness of Breath. triamcinolo 2020-09 Yes [id number] Apply to [facility] ne 0.025 % 1-09 area(s) 3 ity of ointment 00:00: (three) [place] 00 times Medical daily. For Branch itching cyanocobala 2020-09 Yes [id number] 1000ug 1 mL by [facility] min 1,000 -09 Intramuscu ity of mcg/mL 00:00: lar route [place] injection 00 every 2 Medical (two) Branch weeks. levothyroxi 2020-09 Yes [id number] 50ug Take 1 [facility] ne 50 mcg 1-09 tablet by ity o f tablet 00:00: mouth [place] 00 every Medical morning. Branch fluticasone 2020-09 Yes [id number] 2{puff} Inhale 2 [facility] propionate 1-09 Puffs ity of (FLOVENT 00:00: every 12 [place] HFA) 110 00 (twelve) Medical mcg/actuati hours. Branch on inhaler Rinse mouth after each use. levalbutero 2020-09 Yes [id number] .63mg Inhale [facility] l 0.63 mg/3 -09 0.63 mg 3 ity of mL 00:00: (three) [place] nebulizer 00 times Medical solution daily as Branch needed for Wheezing or Shortness of Breath. clotrimazol 2020-09 Yes [id number] Apply to [facility] e-betametha 10-04 area(s) 2 ity of sone cream 00:00: (two) [place] 00 times Medical daily. Branch cyclobenzap 2020-09 Yes [id number] TAKE 1 [facility] rine 5 mg -09 TABLET BY ity o f tablet 00:00: MOUTH [place] 00 EVERY 8 Medical HOURS Branch NEEDED econazole 2020-09 Yes [id number] Apply to [facility] nitrate 1 % -09 area(s) 2 ity of cream 00:00: (two) [place] 00 times Medical daily. Branch albuterol 2020-09 Yes [id number] 2{puff} Inhale 2 [facility] (PROAIR 1-09 Puffs ity of HFA) 90 00:00: every 6 [place] mcg/actuati 00 (six) Medical on inhaler hours as Branc h needed for Wheezing or Shortness of Breath. triamcinolo 2020-09 Yes [id number] Apply to [facility] ne 0.025 % 1-09 area(s) 3 ity of ointment 00:00: (three) [place] 00 times Medical daily. For Branch itching cyanocobala 2020-09 Yes [id number] 1000ug 1 mL by [facility] min 1,000 1-09 Intramuscu ity of mcg/mL 00:00: lar route [place] injection 00 every 2 Medical (two) Branch weeks. levothyroxi 2020-09 Yes [id number] 50ug Take 1 [facility] ne 50 mcg 1-09 tablet by ity o f tablet 00:00: mouth [place] 00 every Medical morning. Branch fluticasone 2020-09 Yes [id number] 2{puff} Inhale 2 [facility] propionate 1-09 Puffs ity of (FLOVENT 00:00: every 12 [place] HFA) 110 00 (twelve) Medical mcg/actuati hours. Branch on inhaler Rinse mouth after each use. levalbutero 2020-09 Yes [id number] .63mg Inhale [facility] l 0.63 mg/3 1-09 0.63 mg 3 ity of mL 00:00: (three) [place] nebulizer 00 times Medical solution daily as Branch needed for Wheezing or Shortness of Breath. clotrimazol 2020-09 Yes [id number] Apply to [facility] e-betametha 1-09 area(s) 2 ity of sone cream 00:00: (two) [place] 00 times Medical daily. Branch cyclobenzap 2020-09 Yes [id number] TAKE 1 [facility] rine 5 mg -09 TABLET BY ity o f tablet 00:00: MOUTH [place] 00 EVERY 8 Medical HOURS Branch NEEDED econazole 2020-09 Yes [id number] Apply to [facility] nitrate 1 % -09 area(s) 2 ity of cream 00:00: (two) [place] 00 times Medical daily. Branch albuterol 2020-09 Yes [id number] 2{puff} Inhale 2 [facility] (PROAIR 1-09 Puffs ity of HFA) 90 00:00: every 6 [place] mcg/actuati 00 (six) Medical on inhaler hours as Branc h needed for Wheezing or Shortness of Breath. triamcinolo 2020-09 Yes [id number] Apply to [facility] ne 0.025 % 1-09 area(s) 3 ity of ointment 00:00: (three) [place] 00 times Medical daily. For Branch itching cyanocobala 2020-09 Yes [id number] 1000ug 1 mL by [facility] min 1,000 1-09 Intramuscu ity of mcg/mL 00:00: lar route [place] injection 00 every 2 Medical (two) Branch weeks. levothyroxi 2020-09 Yes [id number] 50ug Take 1 [facility] ne 50 mcg 1-09 tablet by ity o f tablet 00:00: mouth [place] 00 every Medical morning. Branch fluticasone 2020-09 Yes [id number] 2{puff} Inhale 2 [facility] propionate 1-09 Puffs ity of (FLOVENT 00:00: every 12 [place] HFA) 110 00 (twelve) Medical mcg/actuati hours. Branch on inhaler Rinse mouth after each use. levalbutero 2020-09 Yes [id number] .63mg Inhale [facility] l 0.63 mg/3 1-09 0.63 mg 3 ity of mL 00:00: (three) [place] nebulizer 00 times Medical solution daily as Branch needed for Wheezing or Shortness of Breath. clotrimazol 2020-09 Yes [id number] Apply to [facility] e-betametha 1-09 area(s) 2 ity of sone cream 00:00: (two) [place] 00 times Medical daily. Branch cyclobenzap 2020-09 Yes [id number] TAKE 1 [facility] rine 5 mg 1-09 TABLET BY ity o f tablet 00:00: MOUTH [place] 00 EVERY 8 Medical HOURS Branch NEEDED econazole 2020-09 Yes [id number] Apply to [facility] nitrate 1 % -09 area(s) 2 ity of cream 00:00: (two) [place] 00 times Medical daily. Branch albuterol 2020-09 Yes [id number] 2{puff} Inhale 2 [facility] (PROAIR 1-09 Puffs ity of HFA) 90 00:00: every 6 [place] mcg/actuati 00 (six) Medical on inhaler hours as Branc h needed for Wheezing or Shortness of Breath. triamcinolo 2020-09 Yes [id number] Apply to [facility] ne 0.025 % 1-09 area(s) 3 ity of ointment 00:00: (three) [place] 00 times Medical daily. For Branch itching cyanocobala 2020-09 Yes [id number] 1000ug 1 mL by [facility] min 1,000 1-09 Intramuscu ity of mcg/mL 00:00: lar route [place] injection 00 every 2 Medical (two) Branch weeks. levothyroxi 2020-09 Yes [id number] 50ug Take 1 [facility] ne 50 mcg 1-09 tablet by ity o f tablet 00:00: mouth [place] 00 every Medical morning. Branch fluticasone 2020-09 Yes [id number] 2{puff} Inhale 2 [facility] propionate 1-09 Puffs ity of (FLOVENT 00:00: every 12 [place] HFA) 110 00 (twelve) Medical mcg/actuati hours. Branch on inhaler Rinse mouth after each use. levalbutero 2020-09 Yes [id number] .63mg Inhale [facility] l 0.63 mg/3 1-09 0.63 mg 3 ity of mL 00:00: (three) [place] nebulizer 00 times Medical solution daily as Branch needed for Wheezing or Shortness of Breath. clotrimazol 2020-09 Yes [id number] Apply to [facility] e-betametha -09 area(s) 2 ity of sone cream 00:00: (two) [place] 00 times Medical daily. Branch cyclobenzap 2020-09 Yes [id number] TAKE 1 [facility] rine 5 mg 1-09 TABLET BY ity o f tablet 00:00: MOUTH [place] 00 EVERY 8 Medical HOURS Branch NEEDED econazole 2020-09 Yes [id number] Apply to [facility] nitrate 1 % -09 area(s) 2 ity of cream 00:00: (two) [place] 00 times Medical daily. Branch albuterol 2020-09 Yes [id number] 2{puff} Inhale 2 [facility] (PROAIR 1-09 Puffs ity of HFA) 90 00:00: every 6 [place] mcg/actuati 00 (six) Medical on inhaler hours as Branc h needed for Wheezing or Shortness of Breath. triamcinolo 2020-09 Yes [id number] Apply to [facility] ne 0.025 % 1-09 area(s) 3 ity of ointment 00:00: (three) [place] 00 times Medical daily. For Branch itching cyanocobala 2020-09 Yes [id number] 1000ug 1 mL by [facility] min 1,000 1-09 Intramuscu ity of mcg/mL 00:00: lar route [place] injection 00 every 2 Medical (two) Branch weeks. levothyroxi 2020-09 Yes [id number] 50ug Take 1 [facility] ne 50 mcg 1-09 tablet by ity o f tablet 00:00: mouth [place] 00 every Medical morning. Branch fluticasone 2020-09 Yes [id number] 2{puff} Inhale 2 [facility] propionate 1-09 Puffs ity of (FLOVENT 00:00: every 12 [place] HFA) 110 00 (twelve) Medical mcg/actuati hours. Branch on inhaler Rinse mouth after each use. levalbutero 2020-09 Yes [id number] .63mg Inhale [facility] l 0.63 mg/3 1-09 0.63 mg 3 ity of mL 00:00: (three) [place] nebulizer 00 times Medical solution daily as Branch needed for Wheezing or Shortness of Breath. clotrimazol 2020-09 Yes [id number] Apply to [facility] e-betametha 1-09 area(s) 2 ity of sone cream 00:00: (two) [place] 00 times Medical daily. Branch cyclobenzap 2020-09 Yes [id number] TAKE 1 [facility] rine 5 mg 1-09 TABLET BY ity o f tablet 00:00: MOUTH [place] 00 EVERY 8 Medical HOURS Branch NEEDED econazole 2020-09 Yes [id number] Apply to [facility] nitrate 1 % -09 area(s) 2 ity of cream 00:00: (two) [place] 00 times Medical daily. Branch albuterol 2020-09 Yes [id number] 2{puff} Inhale 2 [facility] (PROAIR 1-09 Puffs ity of HFA) 90 00:00: every 6 [place] mcg/actuati 00 (six) Medical on inhaler hours as Branc h needed for Wheezing or Shortness of Breath. triamcinolo 2020-09 Yes [id number] Apply to [facility] ne 0.025 % 1-09 area(s) 3 ity of ointment 00:00: (three) [place] 00 times Medical daily. For Branch itching cyanocobala 2020-09 Yes [id number] 1000ug 1 mL by [facility] min 1,000 1-09 Intramuscu ity of mcg/mL 00:00: lar route [place] injection 00 every 2 Medical (two) Branch weeks. levothyroxi 2020-09 Yes [id number] 50ug Take 1 [facility] ne 50 mcg 1-09 tablet by ity o f tablet 00:00: mouth [place] 00 every Medical morning. Branch fluticasone 2020-09 Yes [id number] 2{puff} Inhale 2 [facility] propionate 1-09 Puffs ity of (FLOVENT 00:00: every 12 [place] HFA) 110 00 (twelve) Medical mcg/actuati hours. Branch on inhaler Rinse mouth after each use. levalbutero 2020-09 Yes [id number] .63mg Inhale [facility] l 0.63 mg/3 1-09 0.63 mg 3 ity of mL 00:00: (three) [place] nebulizer 00 times Medical solution daily as Branch needed for Wheezing or Shortness of Breath. clotrimazol 2020-09 Yes [id number] Apply to [facility] e-betametha -09 area(s) 2 ity of sone cream 00:00: (two) [place] 00 times Medical daily. Branch cyclobenzap 2020-09 Yes [id number] TAKE 1 [facility] rine 5 mg -09 TABLET BY ity o f tablet 00:00: MOUTH [place] 00 EVERY 8 Medical HOURS Branch NEEDED econazole 2020-09 Yes [id number] Apply to [facility] nitrate 1 % 09 area(s) 2 ity of cream 00:00: (two) [place] 00 times Medical daily. Branch albuterol 2020-09 Yes [id number] 2{puff} Inhale 2 [facility] (PROAIR 1-09 Puffs ity of HFA) 90 00:00: every 6 [place] mcg/actuati 00 (six) Medical on inhaler hours as Branc h needed for Wheezing or Shortness of Breath. triamcinolo 2020-09 Yes [id number] Apply to [facility] ne 0.025 % -09 area(s) 3 ity of ointment 00:00: (three) [place] 00 times Medical daily. For Branch itching cyanocobala 2020-09 Yes [id number] 1000ug 1 mL by [facility] min 1,000 1-09 Intramuscu ity of mcg/mL 00:00: lar route [place] injection 00 every 2 Medical (two) Branch weeks. levothyroxi 2020-09 Yes [id number] 50ug Take 1 [facility] ne 50 mcg 1-09 tablet by ity o f tablet 00:00: mouth [place] 00 every Medical morning. Branch fluticasone 2020-09 Yes [id number] 2{puff} Inhale 2 [facility] propionate 1-09 Puffs ity of (FLOVENT 00:00: every 12 [place] HFA) 110 00 (twelve) Medical mcg/actuati hours. Branch on inhaler Rinse mouth after each use. levalbutero 2020-09 Yes [id number] .63mg Inhale [facility] l 0.63 mg/3 1-09 0.63 mg 3 ity of mL 00:00: (three) [place] nebulizer 00 times Medical solution daily as Branch needed for Wheezing or Shortness of Breath. clotrimazol 2020-09 Yes [id number] Apply to [facility] e-betametha -09 area(s) 2 ity of sone cream 00:00: (two) [place] 00 times Medical daily. Branch cyclobenzap 2020-09 Yes [id number] TAKE 1 [facility] rine 5 mg -09 TABLET BY ity o f tablet 00:00: MOUTH [place] 00 EVERY 8 Medical HOURS Branch NEEDED econazole 2020-09 Yes [id number] Apply to [facility] nitrate 1 % -09 area(s) 2 ity of cream 00:00: (two) [place] 00 times Medical daily. Branch albuterol 2020-09 Yes [id number] 2{puff} Inhale 2 [facility] (PROAIR 1-09 Puffs ity of HFA) 90 00:00: every 6 [place] mcg/actuati 00 (six) Medical on inhaler hours as Branc h needed for Wheezing or Shortness of Breath. triamcinolo 2020-09 Yes [id number] Apply to [facility] ne 0.025 % 1-09 area(s) 3 ity of ointment 00:00: (three) [place] 00 times Medical daily. For Branch itching cyanocobala 2020-09 Yes [id number] 1000ug 1 mL by [facility] min 1,000 1-09 Intramuscu ity of mcg/mL 00:00: lar route [place] injection 00 every 2 Medical (two) Branch weeks. levothyroxi 2020-09 Yes [id number] 50ug Take 1 [facility] ne 50 mcg -09 tablet by ity o f tablet 00:00: mouth [place] 00 every Medical morning. Branch fluticasone 2020-09 Yes [id number] 2{puff} Inhale 2 [facility] propionate 1-09 Puffs ity of (FLOVENT 00:00: every 12 [place] HFA) 110 00 (twelve) Medical mcg/actuati hours. Branch on inhaler Rinse mouth after each use. levalbutero 2020-09 Yes [id number] .63mg Inhale [facility] l 0.63 mg/3 1-09 0.63 mg 3 ity of mL 00:00: (three) [place] nebulizer 00 times Medical solution daily as Branch needed for Wheezing or Shortness of Breath. clotrimazol 2020-09 Yes [id number] Apply to [facility] e-betametha 1-09 area(s) 2 ity of sone cream 00:00: (two) [place] 00 times Medical daily. Branch cyclobenzap 2020-09 Yes [id number] TAKE 1 [facility] rine 5 mg -09 TABLET BY ity o f tablet 00:00: MOUTH [place] 00 EVERY 8 Medical HOURS Branch NEEDED econazole 2020-09 Yes [id number] Apply to [facility] nitrate 1 % -09 area(s) 2 ity of cream 00:00: (two) [place] 00 times Medical daily. Branch albuterol 2020-09 Yes [id number] 2{puff} Inhale 2 [facility] (PROAIR 1-09 Puffs ity of HFA) 90 00:00: every 6 [place] mcg/actuati 00 (six) Medical on inhaler hours as Branc h needed for Wheezing or Shortness of Breath. triamcinolo 2020-09 Yes [id number] Apply to [facility] ne 0.025 % -09 area(s) 3 ity of ointment 00:00: (three) [place] 00 times Medical daily. For Branch itching cyanocobala 2020-09 Yes [id number] 1000ug 1 mL by [facility] min 1,000 1-09 Intramuscu ity of mcg/mL 00:00: lar route [place] injection 00 every 2 Medical (two) Branch weeks. levothyroxi 2020-09 Yes [id number] 50ug Take 1 [facility] ne 50 mcg 1-09 tablet by ity o f tablet 00:00: mouth [place] 00 every Medical morning. Branch fluticasone 2020-09 Yes [id number] 2{puff} Inhale 2 [facility] propionate 1-09 Puffs ity of (FLOVENT 00:00: every 12 [place] HFA) 110 00 (twelve) Medical mcg/actuati hours. Branch on inhaler Rinse mouth after each use. levalbutero 2020-09 Yes [id number] .63mg Inhale [facility] l 0.63 mg/3 1-09 0.63 mg 3 ity of mL 00:00: (three) [place] nebulizer 00 times Medical solution daily as Branch needed for Wheezing or Shortness of Breath. clotrimazol 2020-09 Yes [id number] Apply to [facility] e-betametha -09 area(s) 2 ity of sone cream 00:00: (two) [place] 00 times Medical daily. Branch cyclobenzap 2020-09 Yes [id number] TAKE 1 [facility] rine 5 mg -09 TABLET BY ity o f tablet 00:00: MOUTH [place] 00 EVERY 8 Medical HOURS Branch NEEDED econazole 2020-09 Yes [id number] Apply to [facility] nitrate 1 % 10-04 area(s) 2 ity of cream 00:00: (two) [place] 00 times Medical daily. Branch albuterol 2020-09 Yes [id number] 2{puff} Inhale 2 [facility] (PROAIR 1-09 Puffs ity of HFA) 90 00:00: every 6 [place] mcg/actuati 00 (six) Medical on inhaler hours as Branc h needed for Wheezing or Shortness of Breath. triamcinolo 2020-09 Yes [id number] Apply to [facility] ne 0.025 % -09 area(s) 3 ity of ointment 00:00: (three) [place] 00 times Medical daily. For Branch itching cyanocobala 2020-09 Yes [id number] 1000ug 1 mL by [facility] min 1,000 1-09 Intramuscu ity of mcg/mL 00:00: lar route [place] injection 00 every 2 Medical (two) Branch weeks. levothyroxi 2020-09 Yes [id number] 50ug Take 1 [facility] ne 50 mcg 1-09 tablet by ity o f tablet 00:00: mouth [place] 00 every Medical morning. Branch fluticasone 2020-09 Yes [id number] 2{puff} Inhale 2 [facility] propionate 1-09 Puffs ity of (FLOVENT 00:00: every 12 [place] HFA) 110 00 (twelve) Medical mcg/actuati hours. Branch on inhaler Rinse mouth after each use. levalbutero 2020-09 Yes [id number] .63mg Inhale [facility] l 0.63 mg/3 1-09 0.63 mg 3 ity of mL 00:00: (three) [place] nebulizer 00 times Medical solution daily as Branch needed for Wheezing or Shortness of Breath. clotrimazol 2020-09 Yes [id number] Apply to [facility] e-betametha 09 area(s) 2 ity of sone cream 00:00: (two) [place] 00 times Medical daily. Branch cyclobenzap 2020-09 Yes [id number] TAKE 1 [facility] rine 5 mg -09 TABLET BY ity o f tablet 00:00: MOUTH [place] 00 EVERY 8 Medical HOURS Branch NEEDED econazole 2020-09 Yes [id number] Apply to [facility] nitrate 1 % 10-04 area(s) 2 ity of cream 00:00: (two) [place] 00 times Medical daily. Branch albuterol 2020-09 Yes [id number] 2{puff} Inhale 2 [facility] (PROAIR 1-09 Puffs ity of HFA) 90 00:00: every 6 [place] mcg/actuati 00 (six) Medical on inhaler hours as Branc h needed for Wheezing or Shortness of Breath. triamcinolo 2020-09 Yes [id number] Apply to [facility] ne 0.025 % 09 area(s) 3 ity of ointment 00:00: (three) [place] 00 times Medical daily. For Branch itching cyanocobala 2020-09 Yes [id number] 1000ug 1 mL by [facility] min 1,000 -09 Intramuscu ity of mcg/mL 00:00: lar route [place] injection 00 every 2 Medical (two) Branch weeks. levothyroxi 2020-09 Yes [id number] 50ug Take 1 [facility] ne 50 mcg 1-09 tablet by ity o f tablet 00:00: mouth [place] 00 every Medical morning. Branch fluticasone 2020-09 Yes [id number] 2{puff} Inhale 2 [facility] propionate 1-09 Puffs ity of (FLOVENT 00:00: every 12 [place] HFA) 110 00 (twelve) Medical mcg/actuati hours. Branch on inhaler Rinse mouth after each use. levalbutero 2020-09 Yes [id number] .63mg Inhale [facility] l 0.63 mg/3 1-09 0.63 mg 3 ity of mL 00:00: (three) [place] nebulizer 00 times Medical solution daily as Branch needed for Wheezing or Shortness of Breath. clotrimazol 2020-09 Yes [id number] Apply to [facility] e-betametha -09 area(s) 2 ity of sone cream 00:00: (two) [place] 00 times Medical daily. Branch cyclobenzap 2020-09 Yes [id number] TAKE 1 [facility] rine 5 mg -09 TABLET BY ity o f tablet 00:00: MOUTH [place] 00 EVERY 8 Medical HOURS Branch NEEDED econazole 2020-09 Yes [id number] Apply to [facility] nitrate 1 % 09 area(s) 2 ity of cream 00:00: (two) [place] 00 times Medical daily. Branch albuterol 2020-09 Yes [id number] 2{puff} Inhale 2 [facility] (PROAIR 1-09 Puffs ity of HFA) 90 00:00: every 6 [place] mcg/actuati 00 (six) Medical on inhaler hours as Branc h needed for Wheezing or Shortness of Breath. triamcinolo 2020-09 Yes [id number] Apply to [facility] ne 0.025 % 09 area(s) 3 ity of ointment 00:00: (three) [place] 00 times Medical daily. For Branch itching cyanocobala 2020-09 Yes [id number] 1000ug 1 mL by [facility] min 1,000 1-09 Intramuscu ity of mcg/mL 00:00: lar route [place] injection 00 every 2 Medical (two) Branch weeks. levothyroxi 2020-09 Yes [id number] 50ug Take 1 [facility] ne 50 mcg 1-09 tablet by ity o f tablet 00:00: mouth [place] 00 every Medical morning. Branch fluticasone 2020-09 Yes [id number] 2{puff} Inhale 2 [facility] propionate 1-09 Puffs ity of (FLOVENT 00:00: every 12 [place] HFA) 110 00 (twelve) Medical mcg/actuati hours. Branch on inhaler Rinse mouth after each use. levalbutero 2020-09 Yes [id number] .63mg Inhale [facility] l 0.63 mg/3 1-09 0.63 mg 3 ity of mL 00:00: (three) [place] nebulizer 00 times Medical solution daily as Branch needed for Wheezing or Shortness of Breath. clotrimazol 2020-09 Yes [id number] Apply to [facility] e-betametha 1-09 area(s) 2 ity of sone cream 00:00: (two) [place] 00 times Medical daily. Branch cyclobenzap 2020-09 Yes [id number] TAKE 1 [facility] rine 5 mg 1-09 TABLET BY ity o f tablet 00:00: MOUTH [place] 00 EVERY 8 Medical HOURS Branch NEEDED econazole 2020-09 Yes [id number] Apply to [facility] nitrate 1 % -09 area(s) 2 ity of cream 00:00: (two) [place] 00 times Medical daily. Branch albuterol 2020-09 Yes [id number] 2{puff} Inhale 2 [facility] (PROAIR 1-09 Puffs ity of HFA) 90 00:00: every 6 [place] mcg/actuati 00 (six) Medical on inhaler hours as Branc h needed for Wheezing or Shortness of Breath. triamcinolo 2020-09 Yes [id number] Apply to [facility] ne 0.025 % -09 area(s) 3 ity of ointment 00:00: (three) [place] 00 times Medical daily. For Branch itching cyanocobala 2020-09 Yes [id number] 1000ug 1 mL by [facility] min 1,000 1-09 Intramuscu ity of mcg/mL 00:00: lar route [place] injection 00 every 2 Medical (two) Branch weeks. levothyroxi 2020-09 Yes [id number] 50ug Take 1 [facility] ne 50 mcg 1-09 tablet by ity o f tablet 00:00: mouth [place] 00 every Medical morning. Branch fluticasone 2020-09 Yes [id number] 2{puff} Inhale 2 [facility] propionate 1-09 Puffs ity of (FLOVENT 00:00: every 12 [place] HFA) 110 00 (twelve) Medical mcg/actuati hours. Branch on inhaler Rinse mouth after each use. levalbutero 2020-09 Yes [id number] .63mg Inhale [facility] l 0.63 mg/3 1-09 0.63 mg 3 ity of mL 00:00: (three) [place] nebulizer 00 times Medical solution daily as Branch needed for Wheezing or Shortness of Breath. clotrimazol 2020-09 Yes [id number] Apply to [facility] e-betametha 09 area(s) 2 ity of sone cream 00:00: (two) [place] 00 times Medical daily. Branch cyclobenzap 2020-09 Yes [id number] TAKE 1 [facility] rine 5 mg -09 TABLET BY ity o f tablet 00:00: MOUTH [place] 00 EVERY 8 Medical HOURS Branch NEEDED econazole 2020-09 Yes [id number] Apply to [facility] nitrate 1 % 09 area(s) 2 ity of cream 00:00: (two) [place] 00 times Medical daily. Branch albuterol 2020-09 Yes [id number] 2{puff} Inhale 2 [facility] (PROAIR 1-09 Puffs ity of HFA) 90 00:00: every 6 [place] mcg/actuati 00 (six) Medical on inhaler hours as Branc h needed for Wheezing or Shortness of Breath. triamcinolo 2020-09 Yes [id number] Apply to [facility] ne 0.025 % 10-04 area(s) 3 ity of ointment 00:00: (three) [place] 00 times Medical daily. For Branch itching cyanocobala 2020-09 Yes [id number] 1000ug 1 mL by [facility] min 1,000 1-09 Intramuscu ity of mcg/mL 00:00: lar route [place] injection 00 every 2 Medical (two) Branch weeks. levothyroxi 2020-09 Yes [id number] 50ug Take 1 [facility] ne 50 mcg 09 tablet by ity o f tablet 00:00: mouth [place] 00 every Medical morning. Branch fluticasone 2020-09 Yes [id number] 2{puff} Inhale 2 [facility] propionate 1-09 Puffs ity of (FLOVENT 00:00: every 12 [place] HFA) 110 00 (twelve) Medical mcg/actuati hours. Branch on inhaler Rinse mouth after each use. levalbutero 2020-09 Yes [id number] .63mg Inhale [facility] l 0.63 mg/3 1-09 0.63 mg 3 ity of mL 00:00: (three) [place] nebulizer 00 times Medical solution daily as Branch needed for Wheezing or Shortness of Breath. clotrimazol 2020-09 Yes [id number] Apply to [facility] e-betametha - area(s) 2 ity of sone cream 00:00: (two) [place] 00 times Medical daily. Branch cyclobenzap 2020-09 Yes [id number] TAKE 1 [facility] rine 5 mg -09 TABLET BY ity o f tablet 00:00: MOUTH [place] 00 EVERY 8 Medical HOURS Branch NEEDED econazole 2020-09 Yes [id number] Apply to [facility] nitrate 1 % 10-04 area(s) 2 ity of cream 00:00: (two) [place] 00 times Medical daily. Branch albuterol 2020-09 Yes [id number] 2{puff} Inhale 2 [facility] (PROAIR 1-09 Puffs ity of HFA) 90 00:00: every 6 [place] mcg/actuati 00 (six) Medical on inhaler hours as Branc h needed for Wheezing or Shortness of Breath. triamcinolo 2020-09 Yes [id number] Apply to [facility] ne 0.025 % 10-04 area(s) 3 ity of ointment 00:00: (three) [place] 00 times Medical daily. For Branch itching cyanocobala 2020-09 Yes [id number] 1000ug 1 mL by [facility] min 1,000 1-09 Intramuscu ity of mcg/mL 00:00: lar route [place] injection 00 every 2 Medical (two) Branch weeks. levothyroxi 2020-09 Yes [id number] 50ug Take 1 [facility] ne 50 mcg 10-04 tablet by ity o f tablet 00:00: mouth [place] 00 every Medical morning. Branch fluticasone 2020-09 Yes [id number] 2{puff} Inhale 2 [facility] propionate 1-09 Puffs ity of (FLOVENT 00:00: every 12 [place] HFA) 110 00 (twelve) Medical mcg/actuati hours. Branch on inhaler Rinse mouth after each use. levalbutero 2020-09 Yes [id number] .63mg Inhale [facility] l 0.63 mg/3 1-09 0.63 mg 3 ity of mL 00:00: (three) [place] nebulizer 00 times Medical solution daily as Branch needed for Wheezing or Shortness of Breath. clotrimazol 2020-09 Yes [id number] Apply to [facility] e-betametha 1-09 area(s) 2 ity of sone cream 00:00: (two) [place] 00 times Medical daily. Branch cyclobenzap 2020-09 Yes [id number] TAKE 1 [facility] rine 5 mg 1-09 TABLET BY ity o f tablet 00:00: MOUTH [place] 00 EVERY 8 Medical HOURS Branch NEEDED econazole 2020-09 Yes [id number] Apply to [facility] nitrate 1 % -09 area(s) 2 ity of cream 00:00: (two) [place] 00 times Medical daily. Branch albuterol 2020-09 Yes [id number] 2{puff} Inhale 2 [facility] (PROAIR 1-09 Puffs ity of HFA) 90 00:00: every 6 [place] mcg/actuati 00 (six) Medical on inhaler hours as Branc h needed for Wheezing or Shortness of Breath. triamcinolo 2020-09 Yes [id number] Apply to [facility] ne 0.025 % 10-04 area(s) 3 ity of ointment 00:00: (three) [place] 00 times Medical daily. For Branch itching cyanocobala 2020-09 Yes [id number] 1000ug 1 mL by [facility] min 1,000 1-09 Intramuscu ity of mcg/mL 00:00: lar route [place] injection 00 every 2 Medical (two) Branch weeks. levothyroxi 2020-09 Yes [id number] 50ug Take 1 [facility] ne 50 mcg -09 tablet by ity o f tablet 00:00: mouth [place] 00 every Medical morning. Branch fluticasone 2020-09 Yes [id number] 2{puff} Inhale 2 [facility] propionate 1-09 Puffs ity of (FLOVENT 00:00: every 12 [place] HFA) 110 00 (twelve) Medical mcg/actuati hours. Branch on inhaler Rinse mouth after each use. levalbutero 2020-09 Yes [id number] .63mg Inhale [facility] l 0.63 mg/3 1-09 0.63 mg 3 ity of mL 00:00: (three) [place] nebulizer 00 times Medical solution daily as Branch needed for Wheezing or Shortness of Breath. clotrimazol 2020-09 Yes [id number] Apply to [facility] e-betametha 1-09 area(s) 2 ity of sone cream 00:00: (two) [place] 00 times Medical daily. Branch cyclobenzap 2020-09 Yes [id number] TAKE 1 [facility] rine 5 mg 1-09 TABLET BY ity o f tablet 00:00: MOUTH [place] 00 EVERY 8 Medical HOURS Branch NEEDED econazole 2020-09 Yes [id number] Apply to [facility] nitrate 1 % 09 area(s) 2 ity of cream 00:00: (two) [place] 00 times Medical daily. Branch albuterol 2020-09 Yes [id number] 2{puff} Inhale 2 [facility] (PROAIR 1-09 Puffs ity of HFA) 90 00:00: every 6 [place] mcg/actuati 00 (six) Medical on inhaler hours as Branc h needed for Wheezing or Shortness of Breath. triamcinolo 2020-09 Yes [id number] Apply to [facility] ne 0.025 % 10-04 area(s) 3 ity of ointment 00:00: (three) [place] 00 times Medical daily. For Branch itching cyanocobala 2020-09 Yes [id number] 1000ug 1 mL by [facility] min 1,000 -09 Intramuscu ity of mcg/mL 00:00: lar route [place] injection 00 every 2 Medical (two) Branch weeks. levothyroxi 2020-09 Yes [id number] 50ug Take 1 [facility] ne 50 mcg -09 tablet by ity o f tablet 00:00: mouth [place] 00 every Medical morning. Branch fluticasone 2020-09 Yes [id number] 2{puff} Inhale 2 [facility] propionate 1-09 Puffs ity of (FLOVENT 00:00: every 12 [place] HFA) 110 00 (twelve) Medical mcg/actuati hours. Branch on inhaler Rinse mouth after each use. levalbutero 2020-09 Yes [id number] .63mg Inhale [facility] l 0.63 mg/3 1-09 0.63 mg 3 ity of mL 00:00: (three) [place] nebulizer 00 times Medical solution daily as Branch needed for Wheezing or Shortness of Breath. clotrimazol 2020-09 Yes [id number] Apply to [facility] e-betametha -09 area(s) 2 ity of sone cream 00:00: (two) [place] 00 times Medical daily. Branch cyclobenzap 2020-09 Yes [id number] TAKE 1 [facility] rine 5 mg 1-09 TABLET BY ity o f tablet 00:00: MOUTH [place] 00 EVERY 8 Medical HOURS Branch NEEDED econazole 2020-09 Yes [id number] Apply to [facility] nitrate 1 % 09 area(s) 2 ity of cream 00:00: (two) [place] 00 times Medical daily. Branch albuterol 2020-09 Yes [id number] 2{puff} Inhale 2 [facility] (PROAIR 1-09 Puffs ity of HFA) 90 00:00: every 6 [place] mcg/actuati 00 (six) Medical on inhaler hours as Branc h needed for Wheezing or Shortness of Breath. triamcinolo 2020-09 Yes [id number] Apply to [facility] ne 0.025 % 10-04 area(s) 3 ity of ointment 00:00: (three) [place] 00 times Medical daily. For Branch itching cyanocobala 2020-09 Yes [id number] 1000ug 1 mL by [facility] min 1,000 -09 Intramuscu ity of mcg/mL 00:00: lar route [place] injection 00 every 2 Medical (two) Branch weeks. levothyroxi 2020-09 Yes [id number] 50ug Take 1 [facility] ne 50 mcg -09 tablet by ity o f tablet 00:00: mouth [place] 00 every Medical morning. Branch fluticasone 2020-09 Yes [id number] 2{puff} Inhale 2 [facility] propionate 1-09 Puffs ity of (FLOVENT 00:00: every 12 [place] HFA) 110 00 (twelve) Medical mcg/actuati hours. Branch on inhaler Rinse mouth after each use. levalbutero 2020-09 Yes [id number] .63mg Inhale [facility] l 0.63 mg/3 1-09 0.63 mg 3 ity of mL 00:00: (three) [place] nebulizer 00 times Medical solution daily as Branch needed for Wheezing or Shortness of Breath. clotrimazol 2020-09 Yes [id number] Apply to [facility] e-betametha 09 area(s) 2 ity of sone cream 00:00: (two) [place] 00 times Medical daily. Branch cyclobenzap 2020-09 Yes [id number] TAKE 1 [facility] rine 5 mg 1-09 TABLET BY ity o f tablet 00:00: MOUTH [place] 00 EVERY 8 Medical HOURS Branch NEEDED econazole 2020-09 Yes [id number] Apply to [facility] nitrate 1 % 1-09 area(s) 2 ity of cream 00:00: (two) [place] 00 times Medical daily. Branch albuterol 2020-09 Yes [id number] 2{puff} Inhale 2 [facility] (PROAIR 1-09 Puffs ity of HFA) 90 00:00: every 6 [place] mcg/actuati 00 (six) Medical on inhaler hours as Branc h needed for Wheezing or Shortness of Breath. triamcinolo 2020-09 Yes [id number] Apply to [facility] ne 0.025 % 09 area(s) 3 ity of ointment 00:00: (three) [place] 00 times Medical daily. For Branch itching cyanocobala 2020-09 Yes [id number] 1000ug 1 mL by [facility] min 1,000 1-09 Intramuscu ity of mcg/mL 00:00: lar route [place] injection 00 every 2 Medical (two) Branch weeks. levothyroxi 2020-09 Yes [id number] 50ug Take 1 [facility] ne 50 mcg 1-09 tablet by ity o f tablet 00:00: mouth [place] 00 every Medical morning. Branch fluticasone 2020-09 Yes [id number] 2{puff} Inhale 2 [facility] propionate 1-09 Puffs ity of (FLOVENT 00:00: every 12 [place] HFA) 110 00 (twelve) Medical mcg/actuati hours. Branch on inhaler Rinse mouth after each use. levalbutero 2020-09 Yes [id number] .63mg Inhale [facility] l 0.63 mg/3 1-09 0.63 mg 3 ity of mL 00:00: (three) [place] nebulizer 00 times Medical solution daily as Branch needed for Wheezing or Shortness of Breath. clotrimazol 2020-09 Yes [id number] Apply to [facility] e-betametha -09 area(s) 2 ity of sone cream 00:00: (two) [place] 00 times Medical daily. Branch cyclobenzap 2020-09 Yes [id number] TAKE 1 [facility] rine 5 mg 1-09 TABLET BY ity o f tablet 00:00: MOUTH [place] 00 EVERY 8 Medical HOURS Branch NEEDED econazole 2020-09 Yes [id number] Apply to [facility] nitrate 1 % -09 area(s) 2 ity of cream 00:00: (two) [place] 00 times Medical daily. Branch albuterol 2020-09 Yes [id number] 2{puff} Inhale 2 [facility] (PROAIR 1-09 Puffs ity of HFA) 90 00:00: every 6 [place] mcg/actuati 00 (six) Medical on inhaler hours as Branc h needed for Wheezing or Shortness of Breath. triamcinolo 2020-09 Yes [id number] Apply to [facility] ne 0.025 % 09 area(s) 3 ity of ointment 00:00: (three) [place] 00 times Medical daily. For Branch itching cyanocobala 2020-09 Yes [id number] 1000ug 1 mL by [facility] min 1,000 -09 Intramuscu ity of mcg/mL 00:00: lar route [place] injection 00 every 2 Medical (two) Branch weeks. levothyroxi 2020-09 Yes [id number] 50ug Take 1 [facility] ne 50 mcg -09 tablet by ity o f tablet 00:00: mouth [place] 00 every Medical morning. Branch fluticasone 2020-09 Yes [id number] 2{puff} Inhale 2 [facility] propionate 1-09 Puffs ity of (FLOVENT 00:00: every 12 [place] HFA) 110 00 (twelve) Medical mcg/actuati hours. Branch on inhaler Rinse mouth after each use. levalbutero 2020-09 Yes [id number] .63mg Inhale [facility] l 0.63 mg/3 -09 0.63 mg 3 ity of mL 00:00: (three) [place] nebulizer 00 times Medical solution daily as Branch needed for Wheezing or Shortness of Breath. clotrimazol 2020-09 Yes [id number] Apply to [facility] e-betametha -09 area(s) 2 ity of sone cream 00:00: (two) [place] 00 times Medical daily. Branch cyclobenzap 2020-09 Yes [id number] TAKE 1 [facility] rine 5 mg 1-09 TABLET BY ity o f tablet 00:00: MOUTH [place] 00 EVERY 8 Medical HOURS Branch NEEDED econazole 2020-09 Yes [id number] Apply to [facility] nitrate 1 % 1-09 area(s) 2 ity of cream 00:00: (two) [place] 00 times Medical daily. Branch albuterol 2020-09 Yes [id number] 2{puff} Inhale 2 [facility] (PROAIR 1-09 Puffs ity of HFA) 90 00:00: every 6 [place] mcg/actuati 00 (six) Medical on inhaler hours as Branc h needed for Wheezing or Shortness of Breath. triamcinolo 2020-09 Yes [id number] Apply to [facility] ne 0.025 % -09 area(s) 3 ity of ointment 00:00: (three) [place] 00 times Medical daily. For Branch itching cyanocobala 2020-09 Yes [id number] 1000ug 1 mL by [facility] min 1,000 1-09 Intramuscu ity of mcg/mL 00:00: lar route [place] injection 00 every 2 Medical (two) Branch weeks. levothyroxi 2020-09 Yes [id number] 50ug Take 1 [facility] ne 50 mcg -09 tablet by ity o f tablet 00:00: mouth [place] 00 every Medical morning. Branch fluticasone 2020-09 Yes [id number] 2{puff} Inhale 2 [facility] propionate 1-09 Puffs ity of (FLOVENT 00:00: every 12 [place] HFA) 110 00 (twelve) Medical mcg/actuati hours. Branch on inhaler Rinse mouth after each use. levalbutero 2020-09 Yes [id number] .63mg Inhale [facility] l 0.63 mg/3 1-09 0.63 mg 3 ity of mL 00:00: (three) [place] nebulizer 00 times Medical solution daily as Branch needed for Wheezing or Shortness of Breath. clotrimazol 2020-09 Yes [id number] Apply to [facility] e-betametha -09 area(s) 2 ity of sone cream 00:00: (two) [place] 00 times Medical daily. Branch cyclobenzap 2020-09 Yes [id number] TAKE 1 [facility] rine 5 mg -09 TABLET BY ity o f tablet 00:00: MOUTH [place] 00 EVERY 8 Medical HOURS Branch NEEDED econazole 2020-09 Yes [id number] Apply to [facility] nitrate 1 % -09 area(s) 2 ity of cream 00:00: (two) [place] 00 times Medical daily. Branch albuterol 2020-09 Yes [id number] 2{puff} Inhale 2 [facility] (PROAIR 1-09 Puffs ity of HFA) 90 00:00: every 6 [place] mcg/actuati 00 (six) Medical on inhaler hours as Branc h needed for Wheezing or Shortness of Breath. triamcinolo 2020-09 Yes [id number] Apply to [facility] ne 0.025 % 1-09 area(s) 3 ity of ointment 00:00: (three) [place] 00 times Medical daily. For Branch itching cyanocobala 2020-09 Yes [id number] 1000ug 1 mL by [facility] min 1,000 1-09 Intramuscu ity of mcg/mL 00:00: lar route [place] injection 00 every 2 Medical (two) Branch weeks. levothyroxi 2020-09 Yes [id number] 50ug Take 1 [facility] ne 50 mcg 1-09 tablet by ity o f tablet 00:00: mouth [place] 00 every Medical morning. Branch fluticasone 2020-09 Yes [id number] 2{puff} Inhale 2 [facility] propionate 1-09 Puffs ity of (FLOVENT 00:00: every 12 [place] HFA) 110 00 (twelve) Medical mcg/actuati hours. Branch on inhaler Rinse mouth after each use. levalbutero 2020-09 Yes [id number] .63mg Inhale [facility] l 0.63 mg/3 1-09 0.63 mg 3 ity of mL 00:00: (three) [place] nebulizer 00 times Medical solution daily as Branch needed for Wheezing or Shortness of Breath. clotrimazol 2020-09 Yes [id number] Apply to [facility] e-betametha -09 area(s) 2 ity of sone cream 00:00: (two) [place] 00 times Medical daily. Branch cyclobenzap 2020-09 Yes [id number] TAKE 1 [facility] rine 5 mg 1-09 TABLET BY ity o f tablet 00:00: MOUTH [place] 00 EVERY 8 Medical HOURS Branch NEEDED econazole 2020-09 Yes [id number] Apply to [facility] nitrate 1 % 1-09 area(s) 2 ity of cream 00:00: (two) [place] 00 times Medical daily. Branch albuterol 2020-09 Yes [id number] 2{puff} Inhale 2 [facility] (PROAIR 1-09 Puffs ity of HFA) 90 00:00: every 6 [place] mcg/actuati 00 (six) Medical on inhaler hours as Branc h needed for Wheezing or Shortness of Breath. triamcinolo 2020-09 Yes [id number] Apply to [facility] ne 0.025 % -09 area(s) 3 ity of ointment 00:00: (three) [place] 00 times Medical daily. For Branch itching cyanocobala 2020-09 Yes [id number] 1000ug 1 mL by [facility] min 1,000 -09 Intramuscu ity of mcg/mL 00:00: lar route [place] injection 00 every 2 Medical (two) Branch weeks. levothyroxi 2020-09 Yes [id number] 50ug Take 1 [facility] ne 50 mcg -09 tablet by ity o f tablet 00:00: mouth [place] 00 every Medical morning. Branch fluticasone 2020-09 Yes [id number] 2{puff} Inhale 2 [facility] propionate 1-09 Puffs ity of (FLOVENT 00:00: every 12 [place] HFA) 110 00 (twelve) Medical mcg/actuati hours. Branch on inhaler Rinse mouth after each use. levalbutero 2020-09 Yes [id number] .63mg Inhale [facility] l 0.63 mg/3 1-09 0.63 mg 3 ity of mL 00:00: (three) [place] nebulizer 00 times Medical solution daily as Branch needed for Wheezing or Shortness of Breath. clotrimazol 2020-09 Yes [id number] Apply to [facility] e-betametha 10-04 area(s) 2 ity of sone cream 00:00: (two) [place] 00 times Medical daily. Branch cyclobenzap 2020-09 Yes [id number] TAKE 1 [facility] rine 5 mg -09 TABLET BY ity o f tablet 00:00: MOUTH [place] 00 EVERY 8 Medical HOURS Branch NEEDED econazole 2020-09 Yes [id number] Apply to [facility] nitrate 1 % -09 area(s) 2 ity of cream 00:00: (two) [place] 00 times Medical daily. Branch albuterol 2020-09 Yes [id number] 2{puff} Inhale 2 [facility] (PROAIR 1-09 Puffs ity of HFA) 90 00:00: every 6 [place] mcg/actuati 00 (six) Medical on inhaler hours as Branc h needed for Wheezing or Shortness of Breath. triamcinolo 2020-09 Yes [id number] Apply to [facility] ne 0.025 % 10-04 area(s) 3 ity of ointment 00:00: (three) [place] 00 times Medical daily. For Branch itching cyanocobala 2020-09 Yes [id number] 1000ug 1 mL by [facility] min 1,000 09 Intramuscu [facility] of mcg/mL 00:00: lar route [place] injection 00 every 2 Medical (two) Branch weeks. fluticasone 2020-09 Yes [id number] 2{puff} Inhale 2 [facility] propionate -09 Puffs ity of (FLOVENT 00:00: every 12 [place] HFA) 110 00 (twelve) Medical mcg/actuati hours. Branch on inhaler Rinse mouth after each use. levalbutero 2020-09 Yes [id number] .63mg Inhale [facility] l 0.63 mg/3 -09 0.63 mg 3 ity of mL 00:00: (three) [place] nebulizer 00 times Medical solution daily as Branch needed for Wheezing or Shortness of Breath. clotrimazol 2020-09 Yes [id number] Apply to [facility] e-betametha 10-04 area(s) 2 ity of sone cream 00:00: (two) [place] 00 times Medical daily. Branch cyclobenzap 2020-09 Yes [id number] TAKE 1 [facility] rine 5 mg 10-04 TABLET BY ity o f tablet 00:00: MOUTH [place] 00 EVERY 8 Medical HOURS Branch NEEDED econazole 2020-09 Yes [id number] Apply to [facility] nitrate 1 % 09 area(s) 2 ity of cream 00:00: (two) [place] 00 times Medical daily. Branch albuterol 2020-09 Yes [id number] 2{puff} Inhale 2 [facility] (PROAIR 1-09 Puffs ity of HFA) 90 00:00: every 6 [place] mcg/actuati 00 (six) Medical on inhaler hours as Branc h needed for Wheezing or Shortness of Breath. triamcinolo 2020-09 Yes [id number] Apply to [facility] ne 0.025 % 1- area(s) 3 ity of ointment 00:00: (three) [place] 00 times Medical daily. For Branch itching cyanocobala 2020-09 Yes [id number] 1000ug 1 mL by [facility] min 1,000 1-09 Intramuscu it[facility] of mcg/mL 00:00: lar route [place] injection 00 every 2 Medical (two) Branch weeks. fluticasone 2020-09 Yes [id number] 2{puff} Inhale 2 [facility] propionate 1-09 Puffs ity of (FLOVENT 00:00: every 12 [place] HFA) 110 00 (twelve) Medical mcg/actuati hours. Branch on inhaler Rinse mouth after each use. levalbutero 2020-09 Yes [id number] .63mg Inhale [facility] l 0.63 mg/3 1-09 0.63 mg 3 ity of mL 00:00: (three) [place] nebulizer 00 times Medical solution daily as Branch needed for Wheezing or Shortness of Breath. clotrimazol 2020-09 Yes [id number] Apply to [facility] e-betametha 10-04 area(s) 2 ity of sone cream 00:00: (two) [place] 00 times Medical daily. Branch cyclobenzap 2020-09 Yes [id number] TAKE 1 [facility] rine 5 mg 10-04 TABLET BY it[facility] o f tablet 00:00: MOUTH [place] 00 EVERY 8 Medical HOURS Branch NEEDED econazole 2020-09 Yes [id number] Apply to [facility] nitrate 1 % 10-04 area(s) 2 ity of cream 00:00: (two) [place] 00 times Medical daily. Branch albuterol 2020-09 Yes [id number] 2{puff} Inhale 2 [facility] (PROAIR 1-09 Puffs ity of HFA) 90 00:00: every 6 [place] mcg/actuati 00 (six) Medical on inhaler hours as Branc h needed for Wheezing or Shortness of Breath. triamcinolo 2020-09 Yes [id number] Apply to [facility] ne 0.025 % -09 area(s) 3 ity of ointment 00:00: (three) [place] 00 times Medical daily. For Branch itching cyanocobala 2020-09 Yes [id number] 1000ug 1 mL by [facility] min 1,000 1-09 Intramus[facility] of mcg/mL 00:00: lar route [place] injection 00 every 2 Medical (two) Branch weeks. levalbutero 2020-09 Yes [id number] .63mg Inhale [facility] l 0.63 mg/3 1-09 0.63 mg 3 ity of mL 00:00: (three) [place] nebulizer 00 times Medical solution daily as Branch needed for Wheezing or Shortness of Breath. cyclobenzap 2020-09 Yes [id number] TAKE 1 [facility] rine 5 mg 1-09 TABLET BY it[facility] o f tablet 00:00: MOUTH [place] 00 EVERY 8 Medical HOURS Branch NEEDED albuterol 2020-09 Yes [id number] 2{puff} Inhale 2 [facility] (PROAIR 1-09 Puffs ity of HFA) 90 00:00: every 6 [place] mcg/actuati 00 (six) Medical on inhaler hours as Branc h needed for Wheezing or Shortness of Breath. cyanocobala 2020-09 Yes [id number] 1000ug 1 mL by [facility] min 1,000 1-09 Intramus[facility] of mcg/mL 00:00: lar route [place] injection 00 every 2 Medical (two) Branch weeks. levalbutero 2020-09 Yes [id number] .63mg Inhale [facility] l 0.63 mg/3 1-09 0.63 mg 3 ity of mL 00:00: (three) [place] nebulizer 00 times Medical solution daily as Branch needed for Wheezing or Shortness of Breath. cyclobenzap 2020-09 Yes [id number] TAKE 1 [facility] rine 5 mg 1-09 TABLET BY ity o f tablet 00:00: MOUTH [place] 00 EVERY 8 Medical HOURS Branch NEEDED albuterol 2020-09 Yes [id number] 2{puff} Inhale 2 [facility] (PROAIR 1-09 Puffs ity of HFA) 90 00:00: every 6 [place] mcg/actuati 00 (six) Medical on inhaler hours as Branc h needed for Wheezing or Shortness of Breath. cyanocobala 2020-09 Yes [id number] 1000ug 1 mL by [facility] min 1,000 1-09 Intramuscu [facility] of mcg/mL 00:00: lar route [place] injection 00 every 2 Medical (two) Branch weeks. levalbutero 2020-09 Yes [id number] .63mg Inhale [facility] l 0.63 mg/3 1-09 0.63 mg 3 ity of mL 00:00: (three) [place] nebulizer 00 times Medical solution daily as Branch needed for Wheezing or Shortness of Breath. cyclobenzap 2020-09 Yes [id number] TAKE 1 [facility] rine 5 mg 1-09 TABLET BY ity o f tablet 00:00: MOUTH [place] 00 EVERY 8 Medical HOURS Branch NEEDED albuterol 2020-09 Yes [id number] 2{puff} Inhale 2 [facility] (PROAIR 1-09 Puffs ity of HFA) 90 00:00: every 6 [place] mcg/actuati 00 (six) Medical on inhaler hours as Branc h needed for Wheezing or Shortness of Breath. cyanocobala 2020-09 Yes [id number] 1000ug 1 mL by [facility] min 1,000 1-09 Intramuscu [facility]y of mcg/mL 00:00: lar route [place] injection 00 every 2 Medical (two) Branch weeks. levalbutero 2020-09 Yes [id number] .63mg Inhale [facility] l 0.63 mg/3 1-09 0.63 mg 3 ity of mL 00:00: (three) [place] nebulizer 00 times Medical solution daily as Branch needed for Wheezing or Shortness of Breath. cyclobenzap 2020-09 Yes [id number] TAKE 1 [facility] rine 5 mg 1-09 TABLET BY ity o f tablet 00:00: MOUTH [place] 00 EVERY 8 Medical HOURS Branch NEEDED albuterol 2020-09 Yes [id number] 2{puff} Inhale 2 [facility] (PROAIR 1-09 Puffs ity of HFA) 90 00:00: every 6 [place] mcg/actuati 00 (six) Medical on inhaler hours as Branc h needed for Wheezing or Shortness of Breath. cyanocobala 2020-09 Yes [id number] 1000ug 1 mL by [facility] min 1,000 1-09 Intramuscu [facility]y of mcg/mL 00:00: lar route [place] injection 00 every 2 Medical (two) Branch weeks. levalbutero 2020-09 Yes [id number] .63mg Inhale [facility] l 0.63 mg/3 1-09 0.63 mg 3 ity of mL 00:00: (three) [place] nebulizer 00 times Medical solution daily as Branch needed for Wheezing or Shortness of Breath. cyclobenzap 2020-09 Yes [id number] TAKE 1 [facility] rine 5 mg 1-09 TABLET BY ity o f tablet 00:00: MOUTH [place] 00 EVERY 8 Medical HOURS Branch NEEDED albuterol 2020-09 Yes [id number] 2{puff} Inhale 2 [facility] (PROAIR 1-09 Puffs ity of HFA) 90 00:00: every 6 [place] mcg/actuati 00 (six) Medical on inhaler hours as Branc h needed for Wheezing or Shortness of Breath. cyanocobala 2020-09 Yes [id number] 1000ug 1 mL by [facility] min 1,000 1-09 Intramuscu ity of mcg/mL 00:00: lar route [place] injection 00 every 2 Medical (two) Branch weeks. levalbutero 2020-09 Yes [id number] .63mg Inhale [facility] l 0.63 mg/3 1-09 0.63 mg 3 ity of mL 00:00: (three) [place] nebulizer 00 times Medical solution daily as Branch needed for Wheezing or Shortness of Breath. cyclobenzap 2020-09 Yes [id number] TAKE 1 [facility] rine 5 mg 1-09 TABLET BY ity o f tablet 00:00: MOUTH [place] 00 EVERY 8 Medical HOURS Branch NEEDED albuterol 2020-09 Yes [id number] 2{puff} Inhale 2 [facility] (PROAIR 1-09 Puffs ity of HFA) 90 00:00: every 6 [place] mcg/actuati 00 (six) Medical on inhaler hours as Branc h needed for Wheezing or Shortness of Breath. cyanocobala 2020-09 Yes [id number] 1000ug 1 mL by [facility] min 1,000 1-09 Intramus[facility] ity of mcg/mL 00:00: lar route [place] injection 00 every 2 Medical (two) Branch weeks. levalbutero 2020-09 Yes [id number] .63mg Inhale [facility] l 0.63 mg/3 1-09 0.63 mg 3 ity of mL 00:00: (three) [place] nebulizer 00 times Medical solution daily as Branch needed for Wheezing or Shortness of Breath. cyclobenzap 2020-09 Yes [id number] TAKE 1 [facility] rine 5 mg 1-09 TABLET BY ity o f tablet 00:00: MOUTH [place] 00 EVERY 8 Medical HOURS Branch NEEDED albuterol 2020-09 Yes [id number] 2{puff} Inhale 2 [facility] (PROAIR 1-09 Puffs ity of HFA) 90 00:00: every 6 [place] mcg/actuati 00 (six) Medical on inhaler hours as Branc h needed for Wheezing or Shortness of Breath. cyanocobala 2020-09 Yes [id number] 1000ug 1 mL by [facility] min 1,000 1-09 Intramuscu ity of mcg/mL 00:00: lar route [place] injection 00 every 2 Medical (two) Branch weeks. levalbutero 2020-09 Yes [id number] .63mg Inhale [facility] l 0.63 mg/3 1-09 0.63 mg 3 ity of mL 00:00: (three) [place] nebulizer 00 times Medical solution daily as Branch needed for Wheezing or Shortness of Breath. cyclobenzap 2020-09 Yes [id number] TAKE 1 [facility] rine 5 mg 1-09 TABLET BY ity o f tablet 00:00: MOUTH [place] 00 EVERY 8 Medical HOURS Branch NEEDED albuterol 2020-09 Yes [id number] 2{puff} Inhale 2 [facility] (PROAIR 1-09 Puffs ity of HFA) 90 00:00: every 6 [place] mcg/actuati 00 (six) Medical on inhaler hours as Branc h needed for Wheezing or Shortness of Breath. cyanocobala 2020-09 Yes [id number] 1000ug 1 mL by [facility] min 1,000 1-09 Intramuscu ity of mcg/mL 00:00: lar route [place] injection 00 every 2 Medical (two) Branch weeks. levalbutero 2020-09 Yes [id number] .63mg Inhale [facility] l 0.63 mg/3 1-09 0.63 mg 3 ity of mL 00:00: (three) [place] nebulizer 00 times Medical solution daily as Branch needed for Wheezing or Shortness of Breath. cyclobenzap 2020-09 Yes [id number] TAKE 1 [facility] rine 5 mg 1-09 TABLET BY ity o f tablet 00:00: MOUTH [place] 00 EVERY 8 Medical HOURS Branch NEEDED albuterol 2020-09 Yes [id number] 2{puff} Inhale 2 [facility] (PROAIR 1-09 Puffs ity of HFA) 90 00:00: every 6 [place] mcg/actuati 00 (six) Medical on inhaler hours as Branc h needed for Wheezing or Shortness of Breath. levalbutero 2020-09 Yes [id number] .63mg Inhale [facility] l 0.63 mg/3 1-09 0.63 mg 3 ity of mL 00:00: (three) [place] nebulizer 00 times Medical solution daily as Branch needed for Wheezing or Shortness of Breath. cyclobenzap 2020-09 Yes [id number] TAKE 1 [facility] rine 5 mg 1-09 TABLET BY ity o f tablet 00:00: MOUTH [place] 00 EVERY 8 Medical HOURS Branch NEEDED albuterol 2020-09 Yes [id number] 2{puff} Inhale 2 [facility] (PROAIR 1-09 Puffs ity of HFA) 90 00:00: every 6 [place] mcg/actuati 00 (six) Medical on inhaler hours as Branc h needed for Wheezing or Shortness of Breath. levalbutero 2020-09 Yes [id number] .63mg Inhale [facility] l 0.63 mg/3 1-09 0.63 mg 3 ity of mL 00:00: (three) [place] nebulizer 00 times Medical solution daily as Branch needed for Wheezing or Shortness of Breath. cyclobenzap 2020-09 Yes [id number] TAKE 1 [facility] rine 5 mg 1-09 TABLET BY ity o f tablet 00:00: MOUTH [place] 00 EVERY 8 Medical HOURS Branch NEEDED albuterol 2020-09 Yes [id number] 2{puff} Inhale 2 [facility] (PROAIR 1-09 Puffs ity of HFA) 90 00:00: every 6 [place] mcg/actuati 00 (six) Medical on inhaler hours as Branc h needed for Wheezing or Shortness of Breath. levalbutero 2020-09 Yes [id number] .63mg Inhale [facility] l 0.63 mg/3 1-09 0.63 mg 3 ity of mL 00:00: (three) [place] nebulizer 00 times Medical solution daily as Branch needed for Wheezing or Shortness of Breath. cyclobenzap 2020-09 Yes [id number] TAKE 1 [facility] rine 5 mg 1-09 TABLET BY ity o f tablet 00:00: MOUTH [place] 00 EVERY 8 Medical HOURS Branch NEEDED albuterol 2020-09 Yes [id number] 2{puff} Inhale 2 [facility] (PROAIR 1-09 Puffs ity of HFA) 90 00:00: every 6 [place] mcg/actuati 00 (six) Medical on inhaler hours as Branc h needed for Wheezing or Shortness of Breath. levalbutero 2020-09 Yes [id number] .63mg Inhale [facility] l 0.63 mg/3 1-09 0.63 mg 3 ity of mL 00:00: (three) [place] nebulizer 00 times Medical solution daily as Branch needed for Wheezing or Shortness of Breath. cyclobenzap 2020-09 Yes [id number] TAKE 1 [facility] rine 5 mg 1-09 TABLET BY ity o f tablet 00:00: MOUTH [place] 00 EVERY 8 Medical HOURS Branch NEEDED albuterol 2020-09 Yes [id number] 2{puff} Inhale 2 [facility] (PROAIR 1-09 Puffs ity of HFA) 90 00:00: every 6 [place] mcg/actuati 00 (six) Medical on inhaler hours as Branc h needed for Wheezing or Shortness of Breath. levalbutero 2020-09 Yes [id number] .63mg Inhale [facility] l 0.63 mg/3 1-09 0.63 mg 3 ity of mL 00:00: (three) [place] nebulizer 00 times Medical solution daily as Branch needed for Wheezing or Shortness of Breath. cyclobenzap 2020-09 Yes [id number] TAKE 1 [facility] rine 5 mg 1-09 TABLET BY ity o f tablet 00:00: MOUTH [place] 00 EVERY 8 Medical HOURS Branch NEEDED albuterol 2020-09 Yes [id number] 2{puff} Inhale 2 [facility] (PROAIR 1-09 Puffs ity of HFA) 90 00:00: every 6 [place] mcg/actuati 00 (six) Medical on inhaler hours as Branc h needed for Wheezing or Shortness of Breath. levalbutero 2020-09 Yes [id number] .63mg Inhale [facility] l 0.63 mg/3 1-09 0.63 mg 3 ity of mL 00:00: (three) [place] nebulizer 00 times Medical solution daily as Branch needed for Wheezing or Shortness of Breath. cyclobenzap 2020-09 Yes [id number] TAKE 1 [facility] rine 5 mg 1-09 TABLET BY ity o f tablet 00:00: MOUTH [place] 00 EVERY 8 Medical HOURS Branch NEEDED albuterol 2020-09 Yes [id number] 2{puff} Inhale 2 [facility] (PROAIR 1-09 Puffs ity of HFA) 90 00:00: every 6 [place] mcg/actuati 00 (six) Medical on inhaler hours as Branc h needed for Wheezing or Shortness of Breath. levalbutero 2020-09 Yes [id number] .63mg Inhale [facility] l 0.63 mg/3 1-09 0.63 mg 3 ity of mL 00:00: (three) [place] nebulizer 00 times Medical solution daily as Branch needed for Wheezing or Shortness of Breath. cyclobenzap 2020-09 Yes [id number] TAKE 1 [facility] rine 5 mg 1-09 TABLET BY ity o f tablet 00:00: MOUTH [place] 00 EVERY 8 Medical HOURS Branch NEEDED albuterol 2020-09 Yes [id number] 2{puff} Inhale 2 [facility] (PROAIR 1-09 Puffs ity of HFA) 90 00:00: every 6 [place] mcg/actuati 00 (six) Medical on inhaler hours as Branc h needed for Wheezing or Shortness of Breath. levalbutero 2020-09 Yes [id number] .63mg Inhale [facility] l 0.63 mg/3 1-09 0.63 mg 3 ity of mL 00:00: (three) [place] nebulizer 00 times Medical solution daily as Branch needed for Wheezing or Shortness of Breath. cyclobenzap 2020-09 Yes [id number] TAKE 1 [facility] rine 5 mg 1-09 TABLET BY ity o f tablet 00:00: MOUTH [place] 00 EVERY 8 Medical HOURS Branch NEEDED albuterol 2020-09 Yes [id number] 2{puff} Inhale 2 [facility] (PROAIR 1-09 Puffs ity of HFA) 90 00:00: every 6 [place] mcg/actuati 00 (six) Medical on inhaler hours as Branc h needed for Wheezing or Shortness of Breath. levalbutero 2020-09 Yes [id number] .63mg Inhale [facility] l 0.63 mg/3 1-09 0.63 mg 3 ity of mL 00:00: (three) [place] nebulizer 00 times Medical solution daily as Branch needed for Wheezing or Shortness of Breath. cyclobenzap 2020-09 Yes [id number] TAKE 1 [facility] rine 5 mg 1-09 TABLET BY ity o f tablet 00:00: MOUTH [place] 00 EVERY 8 Medical HOURS Branch NEEDED albuterol 2020-09 Yes [id number] 2{puff} Inhale 2 [facility] (PROAIR 1-09 Puffs ity of HFA) 90 00:00: every 6 [place] mcg/actuati 00 (six) Medical on inhaler hours as Branc h needed for Wheezing or Shortness of Breath. levalbutero 2020-09 Yes [id number] .63mg Inhale [facility] l 0.63 mg/3 1-09 0.63 mg 3 ity of mL 00:00: (three) [place] nebulizer 00 times Medical solution daily as Branch needed for Wheezing or Shortness of Breath. cyclobenzap 2020-09 Yes [id number] TAKE 1 [facility] rine 5 mg 1-09 TABLET BY ity o f tablet 00:00: MOUTH [place] 00 EVERY 8 Medical HOURS Branch NEEDED albuterol 2020-09 Yes [id number] 2{puff} Inhale 2 [facility] (PROAIR 1-09 Puffs ity of HFA) 90 00:00: every 6 [place] mcg/actuati 00 (six) Medical on inhaler hours as Branc h needed for Wheezing or Shortness of Breath. levalbutero 2020-09 Yes [id number] .63mg Inhale [facility] l 0.63 mg/3 1-09 0.63 mg 3 ity of mL 00:00: (three) [place] nebulizer 00 times Medical solution daily as Branch needed for Wheezing or Shortness of Breath. cyclobenzap 2020-09 Yes [id number] TAKE 1 [facility] rine 5 mg 1-09 TABLET BY ity o f tablet 00:00: MOUTH [place] 00 EVERY 8 Medical HOURS Branch NEEDED albuterol 2020-09 Yes [id number] 2{puff} Inhale 2 [facility] (PROAIR 1-09 Puffs ity of HFA) 90 00:00: every 6 [place] mcg/actuati 00 (six) Medical on inhaler hours as Branc h needed for Wheezing or Shortness of Breath. levalbutero 2020-09 Yes [id number] .63mg Inhale [facility] l 0.63 mg/3 1-09 0.63 mg 3 ity of mL 00:00: (three) [place] nebulizer 00 times Medical solution daily as Branch needed for Wheezing or Shortness of Breath. cyclobenzap 2020-09 Yes [id number] TAKE 1 [facility] rine 5 mg 1-09 TABLET BY ity o f tablet 00:00: MOUTH [place] 00 EVERY 8 Medical HOURS Branch NEEDED albuterol 2020-09 Yes [id number] 2{puff} Inhale 2 [facility] (PROAIR 1-09 Puffs ity of HFA) 90 00:00: every 6 [place] mcg/actuati 00 (six) Medical on inhaler hours as Branc h needed for Wheezing or Shortness of Breath. levalbutero 2020-09 Yes [id number] .63mg Inhale [facility] l 0.63 mg/3 1-09 0.63 mg 3 ity of mL 00:00: (three) [place] nebulizer 00 times Medical solution daily as Branch needed for Wheezing or Shortness of Breath. cyclobenzap 2020-09 Yes [id number] TAKE 1 [facility] rine 5 mg 1-09 TABLET BY ity o f tablet 00:00: MOUTH [place] 00 EVERY 8 Medical HOURS Branch NEEDED albuterol 2020-09 Yes [id number] 2{puff} Inhale 2 [facility] (PROAIR 1-09 Puffs ity of HFA) 90 00:00: every 6 [place] mcg/actuati 00 (six) Medical on inhaler hours as Branc h needed for Wheezing or Shortness of Breath. levalbutero 2020-09 Yes [id number] .63mg Inhale [facility] l 0.63 mg/3 1-09 0.63 mg 3 ity of mL 00:00: (three) [place] nebulizer 00 times Medical solution daily as Branch needed for Wheezing or Shortness of Breath. cyclobenzap 2020-09 Yes [id number] TAKE 1 [facility] rine 5 mg 1-09 TABLET BY ity o f tablet 00:00: MOUTH [place] 00 EVERY 8 Medical HOURS Branch NEEDED albuterol 2020-09 Yes [id number] 2{puff} Inhale 2 [facility] (PROAIR 1-09 Puffs ity of HFA) 90 00:00: every 6 [place] mcg/actuati 00 (six) Medical on inhaler hours as Branc h needed for Wheezing or Shortness of Breath. levalbutero 2020-09 Yes [id number] .63mg Inhale [facility] l 0.63 mg/3 1-09 0.63 mg 3 ity of mL 00:00: (three) [place] nebulizer 00 times Medical solution daily as Branch needed for Wheezing or Shortness of Breath. cyclobenzap 2020-09 Yes [id number] TAKE 1 [facility] rine 5 mg 1-09 TABLET BY ity o f tablet 00:00: MOUTH [place] 00 EVERY 8 Medical HOURS Branch NEEDED albuterol 2020-09 Yes [id number] 2{puff} Inhale 2 [facility] (PROAIR 1-09 Puffs ity of HFA) 90 00:00: every 6 [place] mcg/actuati 00 (six) Medical on inhaler hours as Branc h needed for Wheezing or Shortness of Breath. levalbutero 2020-09 Yes [id number] .63mg Inhale [facility] l 0.63 mg/3 1-09 0.63 mg 3 ity of mL 00:00: (three) [place] nebulizer 00 times Medical solution daily as Branch needed for Wheezing or Shortness of Breath. cyclobenzap 2020-09 Yes [id number] TAKE 1 [facility] rine 5 mg 1-09 TABLET BY ity o f tablet 00:00: MOUTH [place] 00 EVERY 8 Medical HOURS Branch NEEDED albuterol 2020-09 Yes [id number] 2{puff} Inhale 2 [facility] (PROAIR 1-09 Puffs ity of HFA) 90 00:00: every 6 [place] mcg/actuati 00 (six) Medical on inhaler hours as Branc h needed for Wheezing or Shortness of Breath. levalbutero 2020-09 Yes [id number] .63mg Inhale [facility] l 0.63 mg/3 1-09 0.63 mg 3 ity of mL 00:00: (three) [place] nebulizer 00 times Medical solution daily as Branch needed for Wheezing or Shortness of Breath. cyclobenzap 2020-09 Yes [id number] TAKE 1 [facility] rine 5 mg 1-09 TABLET BY ity o f tablet 00:00: MOUTH [place] 00 EVERY 8 Medical HOURS Branch NEEDED albuterol 2020-09 Yes [id number] 2{puff} Inhale 2 [facility] (PROAIR 1-09 Puffs ity of HFA) 90 00:00: every 6 [place] mcg/actuati 00 (six) Medical on inhaler hours as Branc h needed for Wheezing or Shortness of Breath. levalbutero 2020-09 Yes [id number] .63mg Inhale [facility] l 0.63 mg/3 1-09 0.63 mg 3 ity of mL 00:00: (three) [place] nebulizer 00 times Medical solution daily as Branch needed for Wheezing or Shortness of Breath. cyclobenzap 2020-09 Yes [id number] TAKE 1 [facility] rine 5 mg -09 TABLET BY ity o f tablet 00:00: MOUTH [place] 00 EVERY 8 Medical HOURS Branch NEEDED albuterol 2020-09 Yes [id number] 2{puff} Inhale 2 [facility] (PROAIR 1-09 Puffs ity of HFA) 90 00:00: every 6 [place] mcg/actuati 00 (six) Medical on inhaler hours as Branc h needed for Wheezing or Shortness of Breath. levalbutero 2020-09 Yes [id number] .63mg Inhale [facility] l 0.63 mg/3 1-09 0.63 mg 3 ity of mL 00:00: (three) [place] nebulizer 00 times Medical solution daily as Branch needed for Wheezing or Shortness of Breath. albuterol 2020-09 Yes [id number] 2{puff} Inhale 2 [facility] (PROAIR 1-09 Puffs ity of HFA) 90 00:00: every 6 [place] mcg/actuati 00 (six) Medical on inhaler hours as Branc h needed for Wheezing or Shortness of Breath. levalbutero 2020-09 Yes [id number] .63mg Inhale [facility] l 0.63 mg/3 1-09 0.63 mg 3 ity of mL 00:00: (three) [place] nebulizer 00 times Medical solution daily as Branch needed for Wheezing or Shortness of Breath. albuterol 2020-09 Yes [id number] 2{puff} Inhale 2 [facility] (PROAIR 1-09 Puffs ity of HFA) 90 00:00: every 6 [place] mcg/actuati 00 (six) Medical on inhaler hours as Branc h needed for Wheezing or Shortness of Breath. levalbutero 2020-09 Yes [id number] .63mg Inhale [facility] l 0.63 mg/3 1-09 0.63 mg 3 ity of mL 00:00: (three) [place] nebulizer 00 times Medical solution daily as Branch needed for Wheezing or Shortness of Breath. albuterol 2020-09 Yes [id number] 2{puff} Inhale 2 [facility] (PROAIR 1-09 Puffs ity of HFA) 90 00:00: every 6 [place] mcg/actuati 00 (six) Medical on inhaler hours as Branc h needed for Wheezing or Shortness of Breath. levalbutero 2020-09 Yes [id number] .63mg Inhale [facility] l 0.63 mg/3 1-09 0.63 mg 3 ity of mL 00:00: (three) [place] nebulizer 00 times Medical solution daily as Branch needed for Wheezing or Shortness of Breath. albuterol 2020-09 Yes [id number] 2{puff} Inhale 2 [facility] (PROAIR 1-09 Puffs ity of HFA) 90 00:00: every 6 [place] mcg/actuati 00 (six) Medical on inhaler hours as Branc h needed for Wheezing or Shortness of Breath. levalbutero 2020-09 Yes [id number] .63mg Inhale [facility] l 0.63 mg/3 1-09 0.63 mg 3 ity of mL 00:00: (three) [place] nebulizer 00 times Medical solution daily as Branch needed for Wheezing or Shortness of Breath. albuterol 2020-09 Yes [id number] 2{puff} Inhale 2 [facility] (PROAIR 1-09 Puffs ity of HFA) 90 00:00: every 6 [place] mcg/actuati 00 (six) Medical on inhaler hours as Branc h needed for Wheezing or Shortness of Breath. levalbutero 2020-09 Yes [id number] .63mg Inhale [facility] l 0.63 mg/3 1-09 0.63 mg 3 ity of mL 00:00: (three) [place] nebulizer 00 times Medical solution daily as Branch needed for Wheezing or Shortness of Breath. albuterol 2020-09 Yes [id number] 2{puff} Inhale 2 [facility] (PROAIR 1-09 Puffs ity of HFA) 90 00:00: every 6 [place] mcg/actuati 00 (six) Medical on inhaler hours as Branc h needed for Wheezing or Shortness of Breath. levalbutero 2020-09 Yes [id number] .63mg Inhale [facility] l 0.63 mg/3 1-09 0.63 mg 3 ity of mL 00:00: (three) [place] nebulizer 00 times Medical solution daily as Branch needed for Wheezing or Shortness of Breath. albuterol 2020-09 Yes [id number] 2{puff} Inhale 2 [facility] (PROAIR 1-09 Puffs ity of HFA) 90 00:00: every 6 [place] mcg/actuati 00 (six) Medical on inhaler hours as Branc h needed for Wheezing or Shortness of Breath. levalbutero 2020-09 Yes [id number] .63mg Inhale [facility] l 0.63 mg/3 1-09 0.63 mg 3 ity of mL 00:00: (three) [place] nebulizer 00 times Medical solution daily as Branch needed for Wheezing or Shortness of Breath. albuterol 2020-09 Yes [id number] 2{puff} Inhale 2 [facility] (PROAIR 1-09 Puffs ity of HFA) 90 00:00: every 6 [place] mcg/actuati 00 (six) Medical on inhaler hours as Branc h needed for Wheezing or Shortness of Breath. levalbutero 2020-09 Yes [id number] .63mg Inhale [facility] l 0.63 mg/3 1-09 0.63 mg 3 ity of mL 00:00: (three) [place] nebulizer 00 times Medical solution daily as Branch needed for Wheezing or Shortness of Breath. albuterol 2020-09 Yes [id number] 2{puff} Inhale 2 [facility] (PROAIR 1-09 Puffs ity of HFA) 90 00:00: every 6 [place] mcg/actuati 00 (six) Medical on inhaler hours as Branc h needed for Wheezing or Shortness of Breath. levalbutero 2020-09 Yes [id number] .63mg Inhale [facility] l 0.63 mg/3 1-09 0.63 mg 3 ity of mL 00:00: (three) [place] nebulizer 00 times Medical solution daily as Branch needed for Wheezing or Shortness of Breath. albuterol 2020-09 Yes [id number] 2{puff} Inhale 2 [facility] (PROAIR 1-09 Puffs ity of HFA) 90 00:00: every 6 [place] mcg/actuati 00 (six) Medical on inhaler hours as Branc h needed for Wheezing or Shortness of Breath. levalbutero 2020-09 Yes [id number] .63mg Inhale [facility] l 0.63 mg/3 1-09 0.63 mg 3 ity of mL 00:00: (three) [place] nebulizer 00 times Medical solution daily as Branch needed for Wheezing or Shortness of Breath. albuterol 2020-09 Yes [id number] 2{puff} Inhale 2 [facility] (PROAIR 1-09 Puffs ity of HFA) 90 00:00: every 6 [place] mcg/actuati 00 (six) Medical on inhaler hours as Branc h needed for Wheezing or Shortness of Breath. levalbutero 2020-09 Yes [id number] .63mg Inhale [facility] l 0.63 mg/3 1-09 0.63 mg 3 ity of mL 00:00: (three) [place] nebulizer 00 times Medical solution daily as Branch needed for Wheezing or Shortness of Breath. albuterol 2020-09 Yes [id number] 2{puff} Inhale 2 [facility] (PROAIR 1-09 Puffs ity of HFA) 90 00:00: every 6 [place] mcg/actuati 00 (six) Medical on inhaler hours as Branc h needed for Wheezing or Shortness of Breath. levalbutero 2020-09 Yes [id number] .63mg Inhale [facility] 0.63 mg/3 1-09 0.63 mg 3 ity of mL 00:00: (three) [place] nebulizer 00 times Medical solution daily as Branch needed for Wheezing or Shortness of Breath. albuterol 2020-09 Yes [id number] 2{puff} Inhale 2 [facility] (PROAIR 1-09 Puffs ity of HFA) 90 00:00: every 6 [place] mcg/actuati 00 (six) Medical on inhaler hours as Branc h needed for Wheezing or Shortness of Breath. levalbutero 2020-09 Yes [id number] .63mg Inhale [facility] 0.63 mg/3 1-09 0.63 mg 3 ity of mL 00:00: (three) [place] nebulizer 00 times Medical solution daily as Branch needed for Wheezing or Shortness of Breath. albuterol 2020-09 Yes [id number] 2{puff} Inhale 2 [facility] (PROAIR 1-09 Puffs ity of HFA) 90 00:00: every 6 [place] mcg/actuati 00 (six) Medical on inhaler hours as Branc h needed for Wheezing or Shortness of Breath. levalbutero 2020-09 Yes [id number] .63mg Inhale [facility] l 0.63 mg/3 1-09 0.63 mg 3 ity of mL 00:00: (three) [place] nebulizer 00 times Medical solution daily as Branch needed for Wheezing or Shortness of Breath. albuterol 2020-09 Yes [id number] 2{puff} Inhale 2 [facility] (PROAIR 1-09 Puffs ity of HFA) 90 00:00: every 6 [place] mcg/actuati 00 (six) Medical on inhaler hours as Branc h needed for Wheezing or Shortness of Breath. levalbutero 2020-09 Yes [id number] .63mg Inhale [facility] l 0.63 mg/3 1-09 0.63 mg 3 ity of mL 00:00: (three) [place] nebulizer 00 times Medical solution daily as Branch needed for Wheezing or Shortness of Breath. albuterol 2020-09 Yes [id number] 2{puff} Inhale 2 [facility] (PROAIR 1-09 Puffs ity of HFA) 90 00:00: every 6 [place] mcg/actuati 00 (six) Medical on inhaler hours as Branc h needed for Wheezing or Shortness of Breath. levalbutero 2020-09 Yes [id number] .63mg Inhale [facility] l 0.63 mg/3 1-09 0.63 mg 3 ity of mL 00:00: (three) [place] nebulizer 00 times Medical solution daily as Branch needed for Wheezing or Shortness of Breath. albuterol 2020-09 Yes [id number] 2{puff} Inhale 2 [facility] (PROAIR 1-09 Puffs ity of HFA) 90 00:00: every 6 [place] mcg/actuati 00 (six) Medical on inhaler hours as Branc h needed for Wheezing or Shortness of Breath. levalbutero 2020-09 Yes [id number] .63mg Inhale [facility] l 0.63 mg/3 1-09 0.63 mg 3 ity of mL 00:00: (three) [place] nebulizer 00 times Medical solution daily as Branch needed for Wheezing or Shortness of Breath. albuterol 2020-09 Yes [id number] 2{puff} Inhale 2 [facility] (PROAIR 1-09 Puffs ity of HFA) 90 00:00: every 6 [place] mcg/actuati 00 (six) Medical on inhaler hours as Branc h needed for Wheezing or Shortness of Breath. levalbutero 2020-09 Yes [id number] .63mg Inhale [facility] l 0.63 mg/3 1-09 0.63 mg 3 ity of mL 00:00: (three) [place] nebulizer 00 times Medical solution daily as Branch needed for Wheezing or Shortness of Breath. albuterol 2020-09 Yes [id number] 2{puff} Inhale 2 [facility] (PROAIR 1-09 Puffs ity of HFA) 90 00:00: every 6 [place] mcg/actuati 00 (six) Medical on inhaler hours as Branc h needed for Wheezing or Shortness of Breath. levalbutero 2020-09 Yes [id number] .63mg Inhale [facility] l 0.63 mg/3 1-09 0.63 mg 3 ity of mL 00:00: (three) [place] nebulizer 00 times Medical solution daily as Branch needed for Wheezing or Shortness of Breath. albuterol 2020-09 Yes [id number] 2{puff} Inhale 2 [facility] (PROAIR 1-09 Puffs ity of HFA) 90 00:00: every 6 [place] mcg/actuati 00 (six) Medical on inhaler hours as Branc h needed for Wheezing or Shortness of Breath. levalbutero 2020-09 Yes [id number] .63mg Inhale [facility] l 0.63 mg/3 1-09 0.63 mg 3 ity of mL 00:00: (three) [place] nebulizer 00 times Medical solution daily as Branch needed for Wheezing or Shortness of Breath. albuterol 2020-09 Yes [id number] 2{puff} Inhale 2 [facility] (PROAIR 1-09 Puffs ity of HFA) 90 00:00: every 6 [place] mcg/actuati 00 (six) Medical on inhaler hours as Branc h needed for Wheezing or Shortness of Breath. levalbutero 2020-09 Yes [id number] .63mg Inhale [facility] l 0.63 mg/3 1-09 0.63 mg 3 ity of mL 00:00: (three) [place] nebulizer 00 times Medical solution daily as Branch needed for Wheezing or Shortness of Breath. albuterol 2020-09 Yes [id number] 2{puff} Inhale 2 [facility] (PROAIR 1-09 Puffs ity of HFA) 90 00:00: every 6 [place] mcg/actuati 00 (six) Medical on inhaler hours as Branc h needed for Wheezing or Shortness of Breath. levalbutero 2020-09 Yes [id number] .63mg Inhale [facility] l 0.63 mg/3 1-09 0.63 mg 3 ity of mL 00:00: (three) [place] nebulizer 00 times Medical solution daily as Branch needed for Wheezing or Shortness of Breath. albuterol 2020-09 Yes [id number] 2{puff} Inhale 2 [facility] (PROAIR 1-09 Puffs ity of HFA) 90 00:00: every 6 [place] mcg/actuati 00 (six) Medical on inhaler hours as Branc h needed for Wheezing or Shortness of Breath. levalbutero 2020-09 Yes [id number] .63mg Inhale [facility] l 0.63 mg/3 1-09 0.63 mg 3 ity of mL 00:00: (three) [place] nebulizer 00 times Medical solution daily as Branch needed for Wheezing or Shortness of Breath. albuterol 2020-09 Yes [id number] 2{puff} Inhale 2 [facility] (PROAIR 1-09 Puffs ity of HFA) 90 00:00: every 6 [place] mcg/actuati 00 (six) Medical on inhaler hours as Branc h needed for Wheezing or Shortness of Breath. levalbutero 2020-09 Yes [id number] .63mg Inhale [facility] l 0.63 mg/3 1-09 0.63 mg 3 ity of mL 00:00: (three) [place] nebulizer 00 times Medical solution daily as Branch needed for Wheezing or Shortness of Breath. albuterol 2020-09 Yes [id number] 2{puff} Inhale 2 [facility] (PROAIR 1-09 Puffs ity of HFA) 90 00:00: every 6 [place] mcg/actuati 00 (six) Medical on inhaler hours as Branc h needed for Wheezing or Shortness of Breath. levalbutero 2020-09 Yes [id number] .63mg Inhale [facility] l 0.63 mg/3 1-09 0.63 mg 3 ity of mL 00:00: (three) [place] nebulizer 00 times Medical solution daily as Branch needed for Wheezing or Shortness of Breath. albuterol 2020-09 Yes [id number] 2{puff} Inhale 2 [facility] (PROAIR 1-09 Puffs ity of HFA) 90 00:00: every 6 [place] mcg/actuati 00 (six) Medical on inhaler hours as Branc h needed for Wheezing or Shortness of Breath. levalbutero 2020-09 Yes [id number] .63mg Inhale [facility] l 0.63 mg/3 1-09 0.63 mg 3 ity of mL 00:00: (three) [place] nebulizer 00 times Medical solution daily as Branch needed for Wheezing or Shortness of Breath. albuterol 2020-09 Yes [id number] 2{puff} Inhale 2 [facility] (PROAIR 1-09 Puffs ity of HFA) 90 00:00: every 6 [place] mcg/actuati 00 (six) Medical on inhaler hours as Branc h needed for Wheezing or Shortness of Breath. levalbutero 2020-09 Yes [id number] .63mg Inhale [facility] l 0.63 mg/3 1-09 0.63 mg 3 ity of mL 00:00: (three) [place] nebulizer 00 times Medical solution daily as Branch needed for Wheezing or Shortness of Breath. albuterol 2020-09 Yes [id number] 2{puff} Inhale 2 [facility] (PROAIR 1-09 Puffs ity of HFA) 90 00:00: every 6 [place] mcg/actuati 00 (six) Medical on inhaler hours as Branc h needed for Wheezing or Shortness of Breath. levalbutero 2020-09 Yes [id number] .63mg Inhale [facility] l 0.63 mg/3 1-09 0.63 mg 3 ity of mL 00:00: (three) [place] nebulizer 00 times Medical solution daily as Branch needed for Wheezing or Shortness of Breath. albuterol 2020-09 Yes [id number] 2{puff} Inhale 2 [facility] (PROAIR 1-09 Puffs ity of HFA) 90 00:00: every 6 [place] mcg/actuati 00 (six) Medical on inhaler hours as Branc h needed for Wheezing or Shortness of Breath. levalbutero 2020-09 Yes [id number] .63mg Inhale [facility] l 0.63 mg/3 1-09 0.63 mg 3 ity of mL 00:00: (three) [place] nebulizer 00 times Medical solution daily as Branch needed for Wheezing or Shortness of Breath. albuterol 2020-09 Yes [id number] 2{puff} Inhale 2 [facility] (PROAIR 1-09 Puffs ity of HFA) 90 00:00: every 6 [place] mcg/actuati 00 (six) Medical on inhaler hours as Branc h needed for Wheezing or Shortness of Breath. levalbutero 2020-09 Yes [id number] .63mg Inhale [facility] l 0.63 mg/3 1-09 0.63 mg 3 ity of mL 00:00: (three) [place] nebulizer 00 times Medical solution daily as Branch needed for Wheezing or Shortness of Breath. albuterol 2020-09 Yes [id number] 2{puff} Inhale 2 [facility] (PROAIR 1-09 Puffs ity of HFA) 90 00:00: every 6 [place] mcg/actuati 00 (six) Medical on inhaler hours as Branc h needed for Wheezing or Shortness of Breath. levalbutero 2020-09 Yes [id number] .63mg Inhale [facility] l 0.63 mg/3 1-09 0.63 mg 3 ity of mL 00:00: (three) [place] nebulizer 00 times Medical solution daily as Branch needed for Wheezing or Shortness of Breath. albuterol 2020-09 Yes [id number] 2{puff} Inhale 2 [facility] (PROAIR 1-09 Puffs ity of HFA) 90 00:00: every 6 [place] mcg/actuati 00 (six) Medical on inhaler hours as Branc h needed for Wheezing or Shortness of Breath. levalbutero 2020-09 Yes [id number] .63mg Inhale [facility] l 0.63 mg/3 1-09 0.63 mg 3 ity of mL 00:00: (three) [place] nebulizer 00 times Medical solution daily as Branch needed for Wheezing or Shortness of Breath. albuterol 2020-09 Yes [id number] 2{puff} Inhale 2 [facility] (PROAIR 1-09 Puffs ity of HFA) 90 00:00: every 6 [place] mcg/actuati 00 (six) Medical on inhaler hours as Branc h needed for Wheezing or Shortness of Breath. levalbutero 2020-09 Yes [id number] .63mg Inhale [facility] l 0.63 mg/3 1-09 0.63 mg 3 ity of mL 00:00: (three) [place] nebulizer 00 times Medical solution daily as Branch needed for Wheezing or Shortness of Breath. albuterol 2020-09 Yes [id number] 2{puff} Inhale 2 [facility] (PROAIR 1-09 Puffs ity of HFA) 90 00:00: every 6 [place] mcg/actuati 00 (six) Medical on inhaler hours as Branc h needed for Wheezing or Shortness of Breath. levalbutero 2020-09 Yes [id number] .63mg Inhale [facility] l 0.63 mg/3 1-09 0.63 mg 3 ity of mL 00:00: (three) [place] nebulizer 00 times Medical solution daily as Branch needed for Wheezing or Shortness of Breath. albuterol 2020-09 Yes [id number] 2{puff} Inhale 2 [facility] (PROAIR 1-09 Puffs ity of HFA) 90 00:00: every 6 [place] mcg/actuati 00 (six) Medical on inhaler hours as Branc h needed for Wheezing or Shortness of Breath. levalbutero 2020-09 Yes [id number] .63mg Inhale [facility] l 0.63 mg/3 1-09 0.63 mg 3 ity of mL 00:00: (three) [place] nebulizer 00 times Medical solution daily as Branch needed for Wheezing or Shortness of Breath. albuterol 2020-09 Yes [id number] 2{puff} Inhale 2 [facility] (PROAIR 1-09 Puffs ity of HFA) 90 00:00: every 6 [place] mcg/actuati 00 (six) Medical on inhaler hours as Branc h needed for Wheezing or Shortness of Breath. levalbutero 2020-09 Yes [id number] .63mg Inhale [facility] l 0.63 mg/3 1-09 0.63 mg 3 ity of mL 00:00: (three) [place] nebulizer 00 times Medical solution daily as Branch needed for Wheezing or Shortness of Breath. albuterol 2020-09 Yes [id number] 2{puff} Inhale 2 [facility] (PROAIR 1-09 Puffs ity of HFA) 90 00:00: every 6 [place] mcg/actuati 00 (six) Medical on inhaler hours as Branc h needed for Wheezing or Shortness of Breath. levalbutero 2020-09 Yes [id number] .63mg Inhale [facility] l 0.63 mg/3 1-09 0.63 mg 3 ity of mL 00:00: (three) [place] nebulizer 00 times Medical solution daily as Branch needed for Wheezing or Shortness of Breath. albuterol 2020-09 Yes [id number] 2{puff} Inhale 2 [facility] (PROAIR 1-09 Puffs ity of HFA) 90 00:00: every 6 [place] mcg/actuati 00 (six) Medical on inhaler hours as Branc h needed for Wheezing or Shortness of Breath. levalbutero 2020-09 Yes [id number] .63mg Inhale [facility] l 0.63 mg/3 1-09 0.63 mg 3 ity of mL 00:00: (three) [place] nebulizer 00 times Medical solution daily as Branch needed for Wheezing or Shortness of Breath. albuterol 2020-09 Yes [id number] 2{puff} Inhale 2 [facility] (PROAIR 1-09 Puffs ity of HFA) 90 00:00: every 6 [place] mcg/actuati 00 (six) Medical on inhaler hours as Branc h needed for Wheezing or Shortness of Breath. levalbutero 2020-09 Yes [id number] .63mg Inhale [facility] l 0.63 mg/3 1-09 0.63 mg 3 ity of mL 00:00: (three) [place] nebulizer 00 times Medical solution daily as Branch needed for Wheezing or Shortness of Breath. albuterol 2020-09 Yes [id number] 2{puff} Inhale 2 [facility] (PROAIR 1-09 Puffs ity of HFA) 90 00:00: every 6 [place] mcg/actuati 00 (six) Medical on inhaler hours as Branc h needed for Wheezing or Shortness of Breath. levalbutero 2020-09 Yes [id number] .63mg Inhale [facility] l 0.63 mg/3 1-09 0.63 mg 3 ity of mL 00:00: (three) [place] nebulizer 00 times Medical solution daily as Branch needed for Wheezing or Shortness of Breath. albuterol 2020-09 Yes [id number] 2{puff} Inhale 2 [facility] (PROAIR 1-09 Puffs ity of HFA) 90 00:00: every 6 [place] mcg/actuati 00 (six) Medical on inhaler hours as Branc h needed for Wheezing or Shortness of Breath. levalbutero 2020-09 Yes [id number] .63mg Inhale [facility] l 0.63 mg/3 1-09 0.63 mg 3 ity of mL 00:00: (three) [place] nebulizer 00 times Medical solution daily as Branch needed for Wheezing or Shortness of Breath. albuterol 2020-09 Yes [id number] 2{puff} Inhale 2 [facility] (PROAIR 1-09 Puffs ity of HFA) 90 00:00: every 6 [place] mcg/actuati 00 (six) Medical on inhaler hours as Branc h needed for Wheezing or Shortness of Breath. levalbutero 2020-09 Yes [id number] .63mg Inhale [facility] l 0.63 mg/3 1-09 0.63 mg 3 ity of mL 00:00: (three) [place] nebulizer 00 times Medical solution daily as Branch needed for Wheezing or Shortness of Breath. albuterol 2020-09 Yes [id number] 2{puff} Inhale 2 [facility] (PROAIR 1-09 Puffs ity of HFA) 90 00:00: every 6 [place] mcg/actuati 00 (six) Medical on inhaler hours as Branc h needed for Wheezing or Shortness of Breath. levalbutero 2020-09 Yes [id number] .63mg Inhale [facility] l 0.63 mg/3 1-09 0.63 mg 3 ity of mL 00:00: (three) [place] nebulizer 00 times Medical solution daily as Branch needed for Wheezing or Shortness of Breath. albuterol 2020-09 Yes [id number] 2{puff} Inhale 2 [facility] (PROAIR 1-09 Puffs ity of HFA) 90 00:00: every 6 [place] mcg/actuati 00 (six) Medical on inhaler hours as Branc h needed for Wheezing or Shortness of Breath. levalbutero 2020-09 Yes [id number] .63mg Inhale [facility] l 0.63 mg/3 1-09 0.63 mg 3 ity of mL 00:00: (three) [place] nebulizer 00 times Medical solution daily as Branch needed for Wheezing or Shortness of Breath. albuterol 2020-09 Yes [id number] 2{puff} Inhale 2 [facility] (PROAIR 1-09 Puffs ity of HFA) 90 00:00: every 6 [place] mcg/actuati 00 (six) Medical on inhaler hours as Branc h needed for Wheezing or Shortness of Breath. levalbutero 2020-09 Yes [id number] .63mg Inhale [facility] l 0.63 mg/3 1-09 0.63 mg 3 ity of mL 00:00: (three) [place] nebulizer 00 times Medical solution daily as Branch needed for Wheezing or Shortness of Breath. albuterol 2020-09 Yes [id number] 2{puff} Inhale 2 [facility] (PROAIR 1-09 Puffs ity of HFA) 90 00:00: every 6 [place] mcg/actuati 00 (six) Medical on inhaler hours as Branc h needed for Wheezing or Shortness of Breath. levalbutero 2020-09 Yes [id number] .63mg Inhale [facility] l 0.63 mg/3 1-09 0.63 mg 3 ity of mL 00:00: (three) [place] nebulizer 00 times Medical solution daily as Branch needed for Wheezing or Shortness of Breath. albuterol 2020-09 Yes [id number] 2{puff} Inhale 2 [facility] (PROAIR 1-09 Puffs ity of HFA) 90 00:00: every 6 [place] mcg/actuati 00 (six) Medical on inhaler hours as Branc h needed for Wheezing or Shortness of Breath. levalbutero 2020-09 Yes [id number] .63mg Inhale [facility] l 0.63 mg/3 1-09 0.63 mg 3 ity of mL 00:00: (three) [place] nebulizer 00 times Medical solution daily as Branch needed for Wheezing or Shortness of Breath. albuterol 2020-09 Yes [id number] 2{puff} Inhale 2 [facility] (PROAIR 1-09 Puffs ity of HFA) 90 00:00: every 6 [place] mcg/actuati 00 (six) Medical on inhaler hours as Branc h needed for Wheezing or Shortness of Breath. levalbutero 2020-09 Yes [id number] .63mg Inhale [facility] l 0.63 mg/3 1-09 0.63 mg 3 ity of mL 00:00: (three) [place] nebulizer 00 times Medical solution daily as Branch needed for Wheezing or Shortness of Breath. albuterol 2020-09 Yes [id number] 2{puff} Inhale 2 [facility] (PROAIR 1-09 Puffs ity of HFA) 90 00:00: every 6 [place] mcg/actuati 00 (six) Medical on inhaler hours as Branc h needed for Wheezing or Shortness of Breath. levalbutero 2020-09 Yes [id number] .63mg Inhale [facility] l 0.63 mg/3 1-09 0.63 mg 3 ity of mL 00:00: (three) [place] nebulizer 00 times Medical solution daily as Branch needed for Wheezing or Shortness of Breath. albuterol 2020-09 Yes [id number] 2{puff} Inhale 2 [facility] (PROAIR 1-09 Puffs ity of HFA) 90 00:00: every 6 [place] mcg/actuati 00 (six) Medical on inhaler hours as Branc h needed for Wheezing or Shortness of Breath. levalbutero 2020-09 Yes [id number] .63mg Inhale [facility] l 0.63 mg/3 1-09 0.63 mg 3 ity of mL 00:00: (three) [place] nebulizer 00 times Medical solution daily as Branch needed for Wheezing or Shortness of Breath. albuterol 2020-09 Yes [id number] 2{puff} Inhale 2 [facility] (PROAIR 1-09 Puffs ity of HFA) 90 00:00: every 6 [place] mcg/actuati 00 (six) Medical on inhaler hours as Branc h needed for Wheezing or Shortness of Breath. levalbutero 2020-09 Yes [id number] .63mg Inhale [facility] l 0.63 mg/3 1-09 0.63 mg 3 ity of mL 00:00: (three) [place] nebulizer 00 times Medical solution daily as Branch needed for Wheezing or Shortness of Breath. albuterol 2020-09 Yes [id number] 2{puff} Inhale 2 [facility] (PROAIR 1-09 Puffs ity of HFA) 90 00:00: every 6 [place] mcg/actuati 00 (six) Medical on inhaler hours as Branc h needed for Wheezing or Shortness of Breath. levalbutero 2020-09 Yes [id number] .63mg Inhale [facility] l 0.63 mg/3 1-09 0.63 mg 3 ity of mL 00:00: (three) [place] nebulizer 00 times Medical solution daily as Branch needed for Wheezing or Shortness of Breath. albuterol 2020-09 Yes [id number] 2{puff} Inhale 2 [facility] (PROAIR 1-09 Puffs ity of HFA) 90 00:00: every 6 [place] mcg/actuati 00 (six) Medical on inhaler hours as Branc h needed for Wheezing or Shortness of Breath. levalbutero 2020-09 Yes [id number] .63mg Inhale [facility] l 0.63 mg/3 1-09 0.63 mg 3 ity of mL 00:00: (three) [place] nebulizer 00 times Medical solution daily as Branch needed for Wheezing or Shortness of Breath. albuterol 2020-09 Yes [id number] 2{puff} Inhale 2 [facility] (PROAIR 1-09 Puffs ity of HFA) 90 00:00: every 6 [place] mcg/actuati 00 (six) Medical on inhaler hours as Branc h needed for Wheezing or Shortness of Breath. levalbutero 2020-09 Yes [id number] .63mg Inhale [facility] l 0.63 mg/3 1-09 0.63 mg 3 ity of mL 00:00: (three) [place] nebulizer 00 times Medical solution daily as Branch needed for Wheezing or Shortness of Breath. albuterol 2020-09 Yes [id number] 2{puff} Inhale 2 [facility] (PROAIR 1-09 Puffs ity of HFA) 90 00:00: every 6 [place] mcg/actuati 00 (six) Medical on inhaler hours as Branc h needed for Wheezing or Shortness of Breath. levalbutero 2020-09 Yes [id number] .63mg Inhale [facility] l 0.63 mg/3 1-09 0.63 mg 3 ity of mL 00:00: (three) [place] nebulizer 00 times Medical solution daily as Branch needed for Wheezing or Shortness of Breath. albuterol 2020-09 Yes [id number] 2{puff} Inhale 2 [facility] (PROAIR 1-09 Puffs ity of HFA) 90 00:00: every 6 [place] mcg/actuati 00 (six) Medical on inhaler hours as Branc h needed for Wheezing or Shortness of Breath. levalbutero 2020-09 Yes [id number] .63mg Inhale [facility] l 0.63 mg/3 1-09 0.63 mg 3 ity of mL 00:00: (three) [place] nebulizer 00 times Medical solution daily as Branch needed for Wheezing or Shortness of Breath. albuterol 2020-09 Yes [id number] 2{puff} Inhale 2 [facility] (PROAIR 1-09 Puffs ity of HFA) 90 00:00: every 6 [place] mcg/actuati 00 (six) Medical on inhaler hours as Branc h needed for Wheezing or Shortness of Breath. levalbutero 2020-09 Yes [id number] .63mg Inhale [facility] l 0.63 mg/3 1-09 0.63 mg 3 ity of mL 00:00: (three) [place] nebulizer 00 times Medical solution daily as Branch needed for Wheezing or Shortness of Breath. albuterol 2020-09 Yes [id number] 2{puff} Inhale 2 [facility] (PROAIR 1-09 Puffs ity of HFA) 90 00:00: every 6 [place] mcg/actuati 00 (six) Medical on inhaler hours as Branc h needed for Wheezing or Shortness of Breath. levalbutero 2020-09 Yes [id number] .63mg Inhale [facility] l 0.63 mg/3 1-09 0.63 mg 3 ity of mL 00:00: (three) [place] nebulizer 00 times Medical solution daily as Branch needed for Wheezing or Shortness of Breath. albuterol 2020-09 Yes [id number] 2{puff} Inhale 2 [facility] (PROAIR 1-09 Puffs ity of HFA) 90 00:00: every 6 [place] mcg/actuati 00 (six) Medical on inhaler hours as Branc h needed for Wheezing or Shortness of Breath. levalbutero 2020-09 Yes [id number] .63mg Inhale [facility] l 0.63 mg/3 1-09 0.63 mg 3 ity of mL 00:00: (three) [place] nebulizer 00 times Medical solution daily as Branch needed for Wheezing or Shortness of Breath. albuterol 2020-09 Yes [id number] 2{puff} Inhale 2 [facility] (PROAIR 1-09 Puffs ity of HFA) 90 00:00: every 6 [place] mcg/actuati 00 (six) Medical on inhaler hours as Branc h needed for Wheezing or Shortness of Breath. levalbutero 2020-09 Yes [id number] .63mg Inhale [facility] l 0.63 mg/3 1-09 0.63 mg 3 ity of mL 00:00: (three) [place] nebulizer 00 times Medical solution daily as Branch needed for Wheezing or Shortness of Breath. albuterol 2020-09 Yes [id number] 2{puff} Inhale 2 [facility] (PROAIR 1-09 Puffs ity of HFA) 90 00:00: every 6 [place] mcg/actuati 00 (six) Medical on inhaler hours as Branc h needed for Wheezing or Shortness of Breath. levalbutero 2020-09 Yes [id number] .63mg Inhale [facility] l 0.63 mg/3 1-09 0.63 mg 3 ity of mL 00:00: (three) [place] nebulizer 00 times Medical solution daily as Branch needed for Wheezing or Shortness of Breath. albuterol 2020-09 Yes [id number] 2{puff} Inhale 2 [facility] (PROAIR 1-09 Puffs ity of HFA) 90 00:00: every 6 [place] mcg/actuati 00 (six) Medical on inhaler hours as Branc h needed for Wheezing or Shortness of Breath. levalbutero 2020-09 Yes [id number] .63mg Inhale [facility] l 0.63 mg/3 1-09 0.63 mg 3 ity of mL 00:00: (three) [place] nebulizer 00 times Medical solution daily as Branch needed for Wheezing or Shortness of Breath. albuterol 2020-09 Yes [id number] 2{puff} Inhale 2 [facility] (PROAIR 1-09 Puffs ity of HFA) 90 00:00: every 6 [place] mcg/actuati 00 (six) Medical on inhaler hours as Branc h needed for Wheezing or Shortness of Breath. levalbutero 2020-09 Yes [id number] .63mg Inhale [facility] l 0.63 mg/3 1-09 0.63 mg 3 ity of mL 00:00: (three) [place] nebulizer 00 times Medical solution daily as Branch needed for Wheezing or Shortness of Breath. albuterol 2020-09 Yes [id number] 2{puff} Inhale 2 [facility] (PROAIR 1-09 Puffs ity of HFA) 90 00:00: every 6 [place] mcg/actuati 00 (six) Medical on inhaler hours as Branc h needed for Wheezing or Shortness of Breath. levalbutero 2020-09 Yes [id number] .63mg Inhale [facility] l 0.63 mg/3 1-09 0.63 mg 3 ity of mL 00:00: (three) [place] nebulizer 00 times Medical solution daily as Branch needed for Wheezing or Shortness of Breath. albuterol 2020-09 Yes [id number] 2{puff} Inhale 2 [facility] (PROAIR 1-09 Puffs ity of HFA) 90 00:00: every 6 [place] mcg/actuati 00 (six) Medical on inhaler hours as Branc h needed for Wheezing or Shortness of Breath. levalbutero 2020-09 Yes [id number] .63mg Inhale [facility] l 0.63 mg/3 1-09 0.63 mg 3 ity of mL 00:00: (three) [place] nebulizer 00 times Medical solution daily as Branch needed for Wheezing or Shortness of Breath. albuterol 2020-09 Yes [id number] 2{puff} Inhale 2 [facility] (PROAIR 1-09 Puffs ity of HFA) 90 00:00: every 6 [place] mcg/actuati 00 (six) Medical on inhaler hours as Branc h needed for Wheezing or Shortness of Breath. cyclobenzap 2020-093- No [id number] TAKE 1 [facility] rine 5 mg 1-09 01-24 TABLET BY ity of tablet 00:00: 00:00 MOUTH [place] 00 :00 EVERY 8 Medical HOURS Branch NEEDED cyclobenzap 2020-093- No [id number] TAKE 1 [facility] rine 5 mg 10-04 TABLET BY ity of tablet 00:00: 00:00 MOUTH [place] 00 :00 EVERY 8 Medical HOURS Branch NEEDED cyclobenzap 2020-093- No [id number] TAKE 1 [facility] rine 5 mg 10-04 TABLET BY ity of tablet 00:00: 00:00 MOUTH [place] 00 :00 EVERY 8 Medical HOURS Branch NEEDED cyclobenzap 2020-09- No [id number] TAKE 1 [facility] rine 5 mg 10-04 TABLET BY ity of tablet 00:00: 00:00 [facility] [place] 00 :00 EVERY 8 Medical HOURS Branch NEEDED cyclobenzap 2020-093- No [id number] TAKE 1 [facility] rine 5 mg 10-04 TABLET BY ity of tablet 00:00: 00:00 [facility] [place] 00 :00 EVERY 8 Medical HOURS Branch NEEDED cyclobenzap 2020-093- No [id number] TAKE 1 [facility] rine 5 mg 10-04 TABLET BY ity of tablet 00:00: 00:00 [facility] [place] 00 :00 EVERY 8 Medical HOURS Branch NEEDED cyclobenzap 2020-093- No [id number] TAKE 1 [facility] rine 5 mg 10-04 TABLET BY ity of tablet 00:00: 00:00 [facility] [place] 00 :00 EVERY 8 Medical HOURS Branch NEEDED cyclobenzap 2020-3- No [id number] TAKE 1 [facility] rine 5 mg 10-04 TABLET BY ity of tablet 00:00: 00:00 MOUTH [place] 00 :00 EVERY 8 Medical HOURS Branch NEEDED cyclobenzap 2020-3- No [id number] TAKE 1 [facility] rine 5 mg 10-04 TABLET BY ity of tablet 00:00: 00:00 [facility] [place] 00 :00 EVERY 8 Medical HOURS Branch NEEDED cyclobenzap 2020-3- No [id number] TAKE 1 [facility] rine 5 mg 10-04 TABLET BY ity of tablet 00:00: 00:00 MOUTH [place] 00 :00 EVERY 8 Medical HOURS Branch NEEDED cyclobenzap 2020-093- No [id number] TAKE 1 [facility] rine 5 mg 10-04 TABLET BY ity of tablet 00:00: 00:00 MOUTH [place] 00 :00 EVERY 8 Medical HOURS Branch NEEDED cyclobenzap 2020-09- No [id number] TAKE 1 [facility] rine 5 mg 10-04 TABLET BY ity of tablet 00:00: 00:00 MOUTH [place] 00 :00 EVERY 8 Medical HOURS Branch NEEDED cyclobenzap 2020-09- No [id number] TAKE 1 [facility] rine 5 mg 10-04 TABLET BY ity of tablet 00:00: 00:00 MOUTH [place] 00 :00 EVERY 8 Medical HOURS Branch NEEDED cyclobenzap 2020-09- No [id number] TAKE 1 [facility] rine 5 mg 10-04 TABLET BY ity of tablet 00:00: 00:00 MOUTH [place] 00 :00 EVERY 8 Medical HOURS Branch NEEDED cyclobenzap 2020-09- No [id number] TAKE 1 [facility] rine 5 mg 10-04 TABLET BY ity of tablet 00:00: 00:00 MOUTH [place] 00 :00 EVERY 8 Medical HOURS Branch NEEDED cyanocobala 2020-09- No [id number] 1000ug 1 mL by [facility] min 1,000 10-04 Intr[facility] ity of mcg/mL 00:00: 00:00 lar route [place] injection 00 :00 every 2 Medical (two) Branch weeks. cyanocobala 2020-09- No [id number] 1000ug 1 mL by [facility] min 1,000 10-04 [facility] ity of mcg/mL 00:00: 00:00 lar route [place] injection 00 :00 every 2 Medical (two) Branch weeks. cyanocobala 2020-09- No [id number] 1000ug 1 mL by [facility] min 1,000 10-0430 [facility] ity of mcg/mL 00:00: 00:00 lar route [place] injection 00 :00 every 2 Medical (two) Branch weeks. cyanocobala 2020-09- No [id number] 1000ug 1 mL by [facility] min 1,000 1-09 11-30 [facility] ity of mcg/mL 00:00: 00:00 lar route [place] injection 00 :00 every 2 Medical (two) Branch weeks. cyanocobala 2020-09- No [id number] 1000ug 1 mL by [facility] min 1,000 1-09 11-30 [facility] ity of mcg/mL 00:00: 00:00 lar route [place] injection 00 :00 every 2 Medical (two) Branch weeks. cyanocobala 2020-09- No [id number] 1000ug 1 mL by [facility] min 1,000 1- 11-30 Intr[facility] ity of mcg/mL 00:00: 00:00 lar route [place] injection 00 :00 every 2 Medical (two) Branch weeks. cyanocobala 2020-09- No [id number] 1000ug 1 mL by [facility] min 1,000 1- 11-30 Intr[facility] ity of mcg/mL 00:00: 00:00 lar route [place] injection 00 :00 every 2 Medical (two) Branch weeks. cyanocobala 2020-09- No [id number] 1000ug 1 mL by [facility] min 1,000 1- 11-30 Intramus[facility] ity of mcg/mL 00:00: 00:00 lar route [place] injection 00 :00 every 2 Medical (two) Branch weeks. cyanocobala 2020-09- No [id number] 1000ug 1 mL by [facility] min 1,000 1- 11-30 Intramus[facility] ity of mcg/mL 00:00: 00:00 lar route [place] injection 00 :00 every 2 Medical (two) Branch weeks. cyanocobala 2020-09- No [id number] 1000ug 1 mL by [facility] min 1,000 1- 11-30 Intramus[facility] ity of mcg/mL 00:00: 00:00 lar route [place] injection 00 :00 every 2 Medical (two) Branch weeks. cyanocobala 2020-09- No [id number] 1000ug 1 mL by [facility] min 1,000 1- 11-30 Intramus[facility] ity of mcg/mL 00:00: 00:00 lar route [place] injection 00 :00 every 2 Medical (two) Branch weeks. fluticasone 2020-09- No [id number] 2{puff} Inhale 2 [facility] propionate 10-04 Puffs ity of (FLOVENT 00:00: 00:00 every 12 [place] HFA[place] 110 00 :00 (twelve) Medical mcg/actuati hours. Branch on inhaler Rinse mouth after each use. clotrimazol 2020-09- No [id number] Apply to Univers e-betametha 10-04 area(s) 2 it y of sone cream 00:00: 00:00 (two) [place] 00 :00 times Medical daily. Branch econazole 2020-09- No [id number] Apply to [facility] nitrate 1 % 10-04 area(s) 2 it y of cream 00:00: 00:00 (two) [place] 00 :00 times Medical daily. Branch triamcinolo 2020-09- No [id number] Apply to [facility] ne 0.025 % 10-04 area(s) 3 ity of ointment 00:00: 00:00 (three) [place] 00 :00 times Medical daily. For Branch itching fluticasone 2020-09- No [id number] 2{puff} Inhale 2 [facility] propionate 10-04 Puffs ity of (FLOVENT 00:00: 00:00 every 12 [place] HFA[place] 110 00 :00 (twelve) Medical mcg/actuati hours. Branch on inhaler Rinse mouth after each use. clotrimazol 2020-09- No [id number] Apply to [facility] e-betametha 10-04 area(s) 2 it y of sone cream 00:00: 00:00 (two) [place] 00 :00 times Medical daily. Branch econazole 2020-09- No [id number] Apply to [facility] nitrate 1 % 10-04 area(s) 2 it y of cream 00:00: 00:00 (two) [place] 00 :00 times Medical daily. Branch triamcinolo 2020-09- No [id number] Apply to [facility] ne 0.025 % 10-04 area(s) 3 ity of ointment 00:00: 00:00 (three) [place] 00 :00 times Medical daily. For Branch itching fluticasone 2020-09- No [id number] 2{puff} Inhale 2 [facility] propionate 10-04 Puffs ity of (FLOVENT 00:00: 00:00 every 12 [place] HFA[place] 110 00 :00 (twelve) Medical mcg/actuati hours. Branch on inhaler Rinse mouth after each use. clotrimazol 2020-09- No [id number] Apply to [facility] e-betametha 10-04 area(s) 2 it y of sone cream 00:00: 00:00 (two) [place] 00 :00 times Medical daily. Branch econazole 2020-09- No [id number] Apply to [facility] nitrate 1 % 10-04 area(s) 2 it y of cream 00:00: 00:00 (two) [place] 00 :00 times Medical daily. Branch triamcinolo 2020-09- No [id number] Apply to [facility] ne 0.025 % 10-04 area(s) 3 ity of ointment 00:00: 00:00 (three) [place] 00 :00 times Medical daily. For Branch itching fluticasone 2020-09- No [id number] 2{puff} Inhale 2 [facility] propionate 10-04 Puffs ity of (FLOVENT 00:00: 00:00 every 12 [place] HFA[place] 110 00 :00 (twelve) Medical mcg/actuati hours. Branch on inhaler Rinse mouth after each use. clotrimazol 2020-09- No [id number] Apply to [facility] e-betametha 10-04 area(s) 2 it y of sone cream 00:00: 00:00 (two) [place] 00 :00 times Medical daily. Branch econazole 2020-09- No [id number] Apply to [facility] nitrate 1 % 10-04 area(s) 2 it y of cream 00:00: 00:00 (two) [place] 00 :00 times Medical daily. Branch triamcinolo 2020-09- No [id number] Apply to [facility] ne 0.025 % 10-04 area(s) 3 ity of ointment 00:00: 00:00 (three) [place] 00 :00 times Medical daily. For Branch itching fluticasone 2020-09- No [id number] 2{puff} Inhale 2 [facility] propionate 10-04 Puffs ity of (FLOVENT 00:00: 00:00 every 12 [place] HFA[place] 110 00 :00 (twelve) Medical mcg/actuati hours. Branch on inhaler Rinse mouth after each use. clotrimazol 2020-09- No [id number] Apply to Univers e-betametha 10-04 area(s) 2 it y of sone cream 00:00: 00:00 (two) [place] 00 :00 times Medical daily. Branch econazole 2020-09- No [id number] Apply to [facility] nitrate 1 % 10-04 area(s) 2 it y of cream 00:00: 00:00 (two) [place] 00 :00 times Medical daily. Branch triamcinolo 2020-09- No [id number] Apply to [facility] ne 0.025 % 10-04 area(s) 3 ity of ointment 00:00: 00:00 (three) [place] 00 :00 times Medical daily. For Branch itching fluticasone 2020-09- No [id number] 2{puff} Inhale 2 [facility] propionate 10-04 Puffs ity of (FLOVENT 00:00: 00:00 every 12 [place] HFA[place] 110 00 :00 (twelve) Medical mcg/actuati hours. Branch on inhaler Rinse mouth after each use. clotrimazol 2020-09- No [id number] Apply to Univers e-betametha 10-04 area(s) 2 it y of sone cream 00:00: 00:00 (two) [place] 00 :00 times Medical daily. Branch econazole 2020-09- No [id number] Apply to [facility] nitrate 1 % 10-04 area(s) 2 it y of cream 00:00: 00:00 (two) [place] 00 :00 times Medical daily. Branch triamcinolo 2020-09- No [id number] Apply to [facility] ne 0.025 % 10-04 area(s) 3 ity of ointment 00:00: 00:00 (three) [place] 00 :00 times Medical daily. For Branch itching fluticasone 2020-09- No [id number] 2{puff} Inhale 2 [facility] propionate 10-04 Puffs ity of (FLOVENT 00:00: 00:00 every 12 [place] HFA[place] 110 00 :00 (twelve) Medical mcg/actuati hours. Branch on inhaler Rinse mouth after each use. clotrimazol 2020-09- No [id number] Apply to [facility] e-betametha 10-04 area(s) 2 it y of sone cream 00:00: 00:00 (two) [place] 00 :00 times Medical daily. Branch econazole 2020-09- No [id number] Apply to [facility] nitrate 1 % 10-04 area(s) 2 it y of cream 00:00: 00:00 (two) [place] 00 :00 times Medical daily. Branch triamcinolo 2020-09- No [id number] Apply to [facility] ne 0.025 % 10-04 area(s) 3 ity of ointment 00:00: 00:00 (three) [place] 00 :00 times Medical daily. For Branch itching fluticasone 2020-09- No [id number] 2{puff} Inhale 2 [facility] propionate 10-04 Puffs ity of (FLOVENT 00:00: 00:00 every 12 [place] HFA) 110 00 :00 (twelve) Medical mcg/actuati hours. Branch on inhaler Rinse mouth after each use. clotrimazol 2020-09- No [id number] Apply to Univers e-betametha 10-04 area(s) 2 it y of sone cream 00:00: 00:00 (two) [place] 00 :00 times Medical daily. Branch econazole 2020-09- No [id number] Apply to [facility] nitrate 1 % 10-04 area(s) 2 it y of cream 00:00: 00:00 (two) [place] 00 :00 times Medical daily. Branch triamcinolo 2020-09- No [id number] Apply to [facility] ne 0.025 % 10-04 area(s) 3 ity of ointment 00:00: 00:00 (three) [place] 00 :00 times Medical daily. For Branch itching fluticasone 2020-09- No [id number] 2{puff} Inhale 2 [facility] propionate 10-04 Puffs ity of (FLOVENT 00:00: 00:00 every 12 [place] HFA) 110 00 :00 (twelve) Medical mcg/actuati hours. Branch on inhaler Rinse mouth after each use. clotrimazol 2020-09- No [id number] Apply to [facility] e-betametha 10-04 area(s) 2 it y of sone cream 00:00: 00:00 (two) [place] 00 :00 times Medical daily. Branch econazole 2020-09- No [id number] Apply to [facility] nitrate 1 % 10-04 area(s) 2 it y of cream 00:00: 00:00 (two) [place] 00 :00 times Medical daily. Branch triamcinolo 2020-09- No [id number] Apply to [facility] ne 0.025 % 10-04 area(s) 3 ity of ointment 00:00: 00:00 (three) [place] 00 :00 times Medical daily. For Branch itching fluticasone 2020-09- No [id number] 2{puff} Inhale 2 [facility] propionate 10-04 Puffs ity of (FLOVENT 00:00: 00:00 every 12 [place] HFA) 110 00 :00 (twelve) Medical mcg/actuati hours. Branch on inhaler Rinse mouth after each use. clotrimazol 2020-09- No [id number] Apply to Univers e-betametha 10-04 area(s) 2 it y of sone cream 00:00: 00:00 (two) [place] 00 :00 times Medical daily. Branch econazole 2020-09- No [id number] Apply to [facility] nitrate 1 % 10-04 area(s) 2 it y of cream 00:00: 00:00 (two) [place] 00 :00 times Medical daily. Branch triamcinolo 2020-09- No [id number] Apply to Univers ne 0.025 % 10-04 area(s) 3 ity of ointment 00:00: 00:00 (three) [place] 00 :00 times Medical daily. For Branch itching fluticasone 2020-09- No [id number] 2{puff} Inhale 2 [facility] propionate 10-04 Puffs ity of (FLOVENT 00:00: 00:00 every 12 [place] HFA) 110 00 :00 (twelve) Medical mcg/actuati hours. Branch on inhaler Rinse mouth after each use. clotrimazol 2020-09- No [id number] Apply to Univers e-betametha 10-04 area(s) 2 it y of sone cream 00:00: 00:00 (two) [place] 00 :00 times Medical daily. Branch econazole 2020-09- No [id number] Apply to [facility] nitrate 1 % 10-04 area(s) 2 it y of cream 00:00: 00:00 (two) [place] 00 :00 times Medical daily. Branch triamcinolo 2020-09- No [id number] Apply to Univers ne 0.025 % 10-04 area(s) 3 ity of ointment 00:00: 00:00 (three) [place] 00 :00 times Medical daily. For Branch itching fluticasone 2020-09- No [id number] 2{puff} Inhale 2 [facility] propionate 10-04 Puffs ity of (FLOVENT 00:00: 00:00 every 12 [place] HFA) 110 00 :00 (twelve) Medical mcg/actuati hours. Branch on inhaler Rinse mouth after each use. clotrimazol 2020-09- No [id number] Apply to Univers e-betametha 10-04 area(s) 2 it y of sone cream 00:00: 00:00 (two) [place] 00 :00 times Medical daily. Branch econazole 2020-09- No [id number] Apply to [facility] nitrate 1 % 10-04 area(s) 2 it y of cream 00:00: 00:00 (two) [place] 00 :00 times Medical daily. Branch triamcinolo 2020-09- No [id number] Apply to [facility] ne 0.025 % 10-04 area(s) 3 ity of ointment 00:00: 00:00 (three) [place] 00 :00 times Medical daily. For Branch itching levothyroxi 2020-09- No [id number] 50ug Take 1 [facility] ne 50 mcg 10-04 tablet by ity of tablet 00:00: 00:00 mouth [place] 00 :00 every Medical morning. Branch levothyroxi 2020-09- No [id number] 50ug Take 1 [facility] ne 50 mcg 10-04 tablet by ity of tablet 00:00: 00:00 mouth [place] 00 :00 every Medical morning. [place] levothyroxi 2020-09- No [id number] 50ug Take 1 [facility] ne 50 mcg 10-04 tablet by ity of tablet 00:00: 00:00 mouth [place] 00 :00 every Medical morning. Branch levothyroxi 2020-09- No [id number] 50ug Take 1 [facility] ne 50 mcg 10-04 tablet by ity of tablet 00:00: 00:00 mouth [place] 00 :00 every Medical morning. Chromo levothyroxi 2020-09- No [id number] 50ug Take 1 [facility] ne 50 mcg 10-04 tablet by ity of tablet 00:00: 00:00 mouth [place] 00 :00 every Medical morning. Chromo levothyroxi 2020-09- No [id number] 50ug Take 1 [facility] ne 50 mcg 10-04 tablet by ity of tablet 00:00: 00:00 mouth [place] 00 :00 every Medical morning. Branch levothyroxi 2020-09- No [id number] 50ug Take 1 [facility] ne 50 mcg 10-04 tablet by ity of tablet 00:00: 00:00 mouth [place] 00 :00 every Medical morning. Chromo levothyroxi 2020-09- No [id number] 50ug Take 1 [facility] ne 50 mcg 10-04 tablet by ity of tablet 00:00: 00:00 mouth [place] 00 :00 every Medical morning. Chromo levothyroxi 2020-09- No [id number] 50ug Take 1 [facility] ne 50 mcg 10-04 tablet by ity of tablet 00:00: 00:00 mouth [place] 00 :00 every Medical morning. Branch levothyroxi 2020-09- No [id number] 50ug Take 1 [facility] ne 50 mcg 10-04 tablet by ity of tablet 00:00: 00:00 mouth [place] 00 :00 every Medical morning. Branch levothyroxi 2020-09- No [id number] 50ug Take 1 [facility] ne 50 mcg 10-04 tablet by ity of tablet 00:00: 00:00 mouth [place] 00 :00 every Medical morning. Branch losartan 50 2020-09- No [id number] 50mg Take 1 [facility] mg tablet 10-04 tablet by ity of 00:00: 00:00 mouth 2 [place] 00 :00 (two) Medical times Branch daily. diltiazem 2020-09- No [id number] 120mg Take 1 Univers (CARTIA XT) 10-04 capsule by i ty of 120 mg 24 00:00: 00:00 mouth 2 [place] hr capsule 00 :00 (two) Medical times Branch daily. losartan 50 2020-09- No [id number] 50mg Take 1 [facility] mg tablet 10-04 tablet by ity of 00:00: 00:00 mouth 2 [place] 00 :00 (two) Medical times Branch daily. diltiazem 2020-09- No [id number] 120mg Take 1 [facility] (CARTIA XT) 10-04 capsule by i ty of 120 mg 24 00:00: 00:00 mouth 2 [place] hr capsule 00 :00 (two) Medical times Branch daily. losartan 50 2020-09- No [id number] 50mg Take 1 [facility] mg tablet 10-04 tablet by ity of 00:00: 00:00 mouth 2 [place] 00 :00 (two) Medical times Branch daily. diltiazem 2020-09- No [id number] 120mg Take 1 [facility] (CARTIA XT) 10-04 capsule by i ty of 120 mg 24 00:00: 00:00 mouth 2 [place] hr capsule 00 :00 (two) Medical times Branch daily. losartan 50 2020-09- No [id number] 50mg Take 1 [facility] mg tablet 10-04 tablet by ity of 00:00: 00:00 mouth 2 [place] 00 :00 (two) Medical times Branch daily. diltiazem 2020-09- No [id number] 120mg Take 1 [facility] (CARTIA XT) 10-04 capsule by i ty of 120 mg 24 00:00: 00:00 mouth 2 [place] hr capsule 00 :00 (two) Medical times Branch daily. losartan 50 2020-09- No [id number] 50mg Take 1 [facility] mg tablet 10-04 tablet by ity of 00:00: 00:00 mouth 2 [place] 00 :00 (two) Medical times Branch daily. diltiazem 2020-09- No [id number] 120mg Take 1 [facility] (CARTIA XT) 10-04 capsule by i ty of 120 mg 24 00:00: 00:00 mouth 2 [place] hr capsule 00 :00 (two) Medical times Branch daily. losartan 50 2020-09- No [id number] 50mg Take 1 [facility] mg tablet 10-04 tablet by ity of 00:00: 00:00 mouth 2 [place] 00 :00 (two) Medical times Branch daily. diltiazem 2020-09- No [id number] 120mg Take 1 [facility] (CARTIA XT) 10-04 capsule by i ty of 120 mg 24 00:00: 00:00 mouth 2 [place] hr capsule 00 :00 (two) Medical times Branch daily. losartan 50 2020-09- No [id number] 50mg Take 1 [facility] mg tablet 10-04 tablet by ity of 00:00: 00:00 mouth 2 [place] 00 :00 (two) Medical times Branch daily. diltiazem 2020-09- No [id number] 120mg Take 1 [facility] (CARTIA XT) 10-04 capsule by i ty of 120 mg 24 00:00: 00:00 mouth 2 [place] hr capsule 00 :00 (two) Medical times Branch daily. losartan 50 2020-09- No [id number] 50mg Take 1 [facility] mg tablet 10-04 tablet by ity of 00:00: 00:00 mouth 2 [place] 00 :00 (two) Medical times Branch daily. diltiazem 2020-09- No [id number] 120mg Take 1 [facility] (CARTIA XT) 10-04 capsule by i ty of 120 mg 24 00:00: 00:00 mouth 2 [place] hr capsule 00 :00 (two) Medical times Branch daily. losartan 50 2020-09- No [id number] 50mg Take 1 [facility] mg tablet 10-04 tablet by ity of 00:00: 00:00 mouth 2 [place] 00 :00 (two) Medical times Branch daily. diltiazem 2020-09- No [id number] 120mg Take 1 [facility] (CARTIA XT) 10-04 capsule by i ty of 120 mg 24 00:00: 00:00 mouth 2 [place] hr capsule 00 :00 (two) Medical times Branch daily. losartan 50 2020-09- No [id number] 50mg Take 1 [facility] mg tablet 10-04 tablet by ity of 00:00: 00:00 mouth 2 [place] 00 :00 (two) Medical times Branch daily. diltiazem 2020-09- No [id number] 120mg Take 1 [facility] (CARTIA XT) 10-04 capsule by i ty of 120 mg 24 00:00: 00:00 mouth 2 [place] hr capsule 00 :00 (two) Medical times Branch daily. rosuvastati 2020-09- No [id number] 10mg Take 1 [facility] n 10 mg 10-04 tablet by ity of tablet 00:00: 00:00 mouth at [place] 00 :00 bedtime. Medical Branch rosuvastati 2020-09- No [id number] 10mg Take 1 [facility] n 10 mg 10-04 tablet by ity of tablet 00:00: 00:00 mouth at [place] 00 :00 bedtime. Medical Branch rosuvastati 2020-09- No [id number] 10mg Take 1 [facility] n 10 mg 10-04 tablet by ity of tablet 00:00: 00:00 mouth at [place] 00 :00 bedtime. Medical Branch rosuvastati 2020-09- No [id number] 10mg Take 1 [facility] n 10 mg 1-09 06-08 tablet by ity of tablet 00:00: 00:00 mouth at [place] 00 :00 bedtime. Medical Branch rosuvastati 2020-09- No [id number] 10mg Take 1 [facility] n 10 mg 10-04 tablet by ity of tablet 00:00: 00:00 mouth at [place] 00 :00 bedtime. Medical Branch rosuvastati 2020-09- No [id number] 10mg Take 1 [facility] n 10 mg 10-04 tablet by ity of tablet 00:00: 00:00 mouth at [place] 00 :00 bedtime. Medical Branch rosuvastati 2020-09- No [id number] 10mg Take 1 [facility] n 10 mg 10-04 tablet by ity of tablet 00:00: 00:00 mouth at [place] 00 :00 bedtime. Medical Branch rosuvastati 2020-09- No [id number] 10mg Take 1 [facility] n 10 mg 10-04 tablet by ity of tablet 00:00: 00:00 mouth at [place] 00 :00 bedtime. Medical Branch rosuvastati 2020-09- No [id number] 10mg Take 1 [facility] n 10 mg 10-04 tablet by ity of tablet 00:00: 00:00 mouth at [place] 00 :00 bedtime. Medical Branch rosuvastati 2020-09- No [id number] 10mg Take 1 [facility] n 10 mg 10-04 tablet by ity of tablet 00:00: 00:00 mouth at [place] 00 :00 bedtime. Medical Branch diclofenac 2020-09- No [id number] 75mg Take 1 [facility] 75 mg EC 10-04 tablet by ity o f tablet 00:00: 00:00 mouth 2 [place] 00 :00 (two) Medical times Branch daily with meals as needed for Pain. USE SPARINGLY DUE TO POSSIBLE SIDE EFFECTS. Insulin 2020-09- No [id number] Use as Uni vers Raysal, 10-04 directed ity of Disposable, 00:00: 00:00 to inject [place] (PEN 00 :00 Ozempic Medical NEEDLE) 32 once Branch gauge x weekly /32" Ndle lancets 2020-09- No [id number] Use twice Univers (ONE TOUCH 10-04 a day for ity of DELICA) 33 00:00: 00:00 ICD code [place] gauge Misc 00 :00 E11.65 Medical Branch diclofenac 2020-09- No [id number] 75mg Take 1 [facility] 75 mg EC 10-04 tablet by ity o f tablet 00:00: 00:00 mouth 2 [place] 00 :00 (two) Medical times Branch daily with meals as needed for Pain. USE SPARINGLY DUE TO POSSIBLE SIDE EFFECTS. Insulin 2020-09- No [id number] Use as Uni vers Raysal, 10-04 directed ity of Disposable, 00:00: 00:00 to inject [place] (PEN 00 :00 Ozempic Medical NEEDLE) 32 once Branch gauge x weekly " Ndle lancets 2020-09- No [id number] Use twice [facility] (ONE TOUCH 10-04 a day for ity of DELICA) 33 00:00: 00:00 ICD code [place] gauge Misc 00 :00 E11.65 Medical Branch diclofenac 2020-09- No [id number] 75mg Take 1 [facility] 75 mg EC 10-04 tablet by ity o f tablet 00:00: 00:00 mouth 2 [place] 00 :00 (two) Medical times Branch daily with meals as needed for Pain. USE SPARINGLY DUE TO POSSIBLE SIDE EFFECTS. Insulin 2020-09- No [id number] Use as Uni vers Raysal, 10-04 directed ity of Disposable, 00:00: 00:00 to inject [place] (PEN 00 :00 Ozempic Medical NEEDLE) 32 once Branch gauge x weekly " Ndle lancets 2020-09- No [id number] Use twice [facility] (ONE TOUCH 10-04 a day for ity of DELICA) 33 00:00: 00:00 ICD code [place] gauge Misc 00 :00 E11.65 Medical Branch diclofenac 2020-09- No [id number] 75mg Take 1 [facility] 75 mg EC 10-04 tablet by ity o f tablet 00:00: 00:00 mouth 2 [place] 00 :00 (two) Medical times Branch daily with meals as needed for Pain. USE SPARINGLY DUE TO POSSIBLE SIDE EFFECTS. Insulin 2020-09- No [id number] Use as Uni vers Raysal, 10-04 directed ity of Disposable, 00:00: 00:00 to inject [place] (PEN 00 :00 Ozempic Medical NEEDLE) 32 once Branch gauge x weekly " Ndle lancets 2020-09- No [id number] Use twice [facility] (ONE TOUCH 10-04 a day for ity of DELICA) 33 00:00: 00:00 ICD code [place] gauge Misc 00 :00 E11.65 Medical Branch diclofenac 2020-09- No [id number] 75mg Take 1 [facility] 75 mg EC 10-04 tablet by ity o f tablet 00:00: 00:00 mouth 2 [place] 00 :00 (two) Medical times Branch daily with meals as needed for Pain. USE SPARINGLY DUE TO POSSIBLE SIDE EFFECTS. Insulin 2020-09- No [id number] Use as Uni vers Raysal, 10-04 directed ity of Disposable, 00:00: 00:00 to inject [place] (PEN 00 :00 Ozempic Medical NEEDLE) 32 once Branch gauge x weekly " Ndle lancets 2020-09- No [id number] Use twice [facility] (ONE TOUCH 10-04 a day for ity of DELICA) 33 00:00: 00:00 ICD code [place] gauge Misc 00 :00 E11.65 Medical Branch diclofenac 2020-09- No [id number] 75mg Take 1 [facility] 75 mg EC 10-04 tablet by ity o f tablet 00:00: 00:00 mouth 2 [place] 00 :00 (two) Medical times Branch daily with meals as needed for Pain. USE SPARINGLY DUE TO POSSIBLE SIDE EFFECTS. Insulin 2020-09- No [id number] Use as Uni vers Raysal, 10-04 directed ity of Disposable, 00:00: 00:00 to inject [place] (PEN 00 :00 Ozempic Medical NEEDLE) 32 once Branch gauge x weekly /32" Ndle lancets 2020-09- No [id number] Use twice [facility] (ONE TOUCH 10-04 a day for ity of DELICA) 33 00:00: 00:00 ICD code [place] gauge Misc 00 :00 E11.65 Medical Branch diclofenac 2020-09- No [id number] 75mg Take 1 [facility] 75 mg EC 10-04 tablet by ity o f tablet 00:00: 00:00 mouth 2 [place] 00 :00 (two) Medical times Branch daily with meals as needed for Pain. USE SPARINGLY DUE TO POSSIBLE SIDE EFFECTS. Insulin 2020-09- No [id number] Use as Uni vers Raysal, 10-04 directed ity of Disposable, 00:00: 00:00 to inject [place] (PEN 00 :00 Ozempic Medical NEEDLE) 32 once Branch gauge x weekly " Ndle lancets 2020-09- No [id number] Use twice [facility] (ONE TOUCH 10-04 a day for ity of DELICA) 33 00:00: 00:00 ICD code [place] gauge Misc 00 :00 E11.65 Medical Branch pregabalin 2020-09- No [id number] 150mg Take 1 [facility] 150 mg 10-04 capsule by ity of capsule 00:00: 00:00 mouth 3 [place] 00 :00 (three) Medical times Branch daily. amitriptyli 2020-09- No [id number] 100mg Take 2 [facility] ne 50 mg 10-04 tablets by ity of tablet 00:00: 00:00 mouth at [place] 00 :00 bedtime. Medical Branch busPIRone 2020-09- No [id number] 20mg Take 2 U nivers 10 mg 10-04 tablets by ity of tablet 00:00: 00:00 mouth 2 [place] 00 :00 (two) Medical times Branch daily. pregabalin 2020-09- No [id number] 150mg Take 1 [facility] 150 mg 10-04 capsule by ity of capsule 00:00: 00:00 mouth 3 [place] 00 :00 (three) Medical times Branch daily. amitriptyli 2020-09- No [id number] 100mg Take 2 [facility] ne 50 mg 10-04 tablets by ity of tablet 00:00: 00:00 mouth at [place] 00 :00 bedtime. Medical Branch busPIRone 2020-09- No [id number] 20mg Take 2 U nivers 10 mg 10-04 tablets by ity of tablet 00:00: 00:00 mouth 2 [place] 00 :00 (two) Medical times Branch daily. pregabalin 2020-09- No [id number] 150mg Take 1 [facility] 150 mg 10-04 capsule by ity of capsule 00:00: 00:00 mouth 3 [place] 00 :00 (three) Medical times Branch daily. amitriptyli 2020-09- No [id number] 100mg Take 2 [facility] ne 50 mg 10-04 tablets by ity of tablet 00:00: 00:00 mouth at [place] 00 :00 bedtime. Medical Branch busPIRone 2020-09- No [id number] 20mg Take 2 [facility] nivers 10 mg 10-04 tablets by ity of tablet 00:00: 00:00 mouth 2 [place] 00 :00 (two) Medical times Branch daily. pregabalin 2020-09- No [id number] 150mg Take 1 [facility] 150 mg 10-04 capsule by ity of capsule 00:00: 00:00 mouth 3 [place] 00 :00 (three) Medical times Branch daily. amitriptyli 2020-09- No [id number] 100mg Take 2 [facility] ne 50 mg 10-04 tablets by ity of tablet 00:00: 00:00 mouth at [place] 00 :00 bedtime. Medical Branch busPIRone 2020-09- No [id number] 20mg Take 2 [facility] nivers 10 mg 10-04 tablets by ity of tablet 00:00: 00:00 mouth 2 [place] 00 :00 (two) Medical times Branch daily. pregabalin 2020-09- No [id number] 150mg Take 1 [facility] 150 mg 10-04 capsule by ity of capsule 00:00: 00:00 mouth 3 [place] 00 :00 (three) Medical times Branch daily. amitriptyli 2020-09- No [id number] 100mg Take 2 [facility] ne 50 mg 10-04 tablets by ity of tablet 00:00: 00:00 mouth at [place] 00 :00 bedtime. Medical Branch busPIRone 2020-09- No [id number] 20mg Take 2 [facility] nivers 10 mg 10-04 tablets by ity of tablet 00:00: 00:00 mouth 2 [place] 00 :00 (two) Medical times Branch daily. citalopram 2020-09- No [id number] 40mg Take 1 [facility] 40 mg 10-04 tablet by ity of tablet 00:00: 00:00 mouth [place] 00 :00 daily. Medical Branch citalopram 2020-09- No [id number] 40mg Take 1 [facility] 40 mg 10-04 tablet by ity of tablet 00:00: 00:00 mouth [place] 00 :00 daily. Medical Branch citalopram 2020-09- No [id number] 40mg Take 1 [facility] 40 mg 10-04 tablet by ity of tablet 00:00: 00:00 mouth [place] 00 :00 daily. Medical Branch citalopram 2020-09- No [id number] 40mg Take 1 [facility] 40 mg 10-04 tablet by ity of tablet 00:00: 00:00 mouth [place] 00 :00 daily. Medical Branch citalopram 2020-09- No [id number] 40mg Take 1 [facility] 40 mg 10-04 tablet by ity of tablet 00:00: 00:00 mouth [place] 00 :00 daily. Medical Branch mirabegron 2020-09- No [id number] 50mg Take 1 [facility] (MYRBETRIQ) 10-04 tablet by it y of 50 mg 00:00: 00:00 mouth [place] tablet 00 :00 daily. Medical Branch mirabegron 2020-09- No [id number] 50mg Take 1 [facility] (MYRBETRIQ) 10-04 tablet by it y of 50 mg 00:00: 00:00 mouth [place] tablet 00 :00 daily. Medical Branch blood sugar 2020-09- No [id number] Use twice [facility] diagnostic 10-04 a day for ity of (ONETOUCH 00:00: 00:00 ICD CODE [place] as VERIO TEST 00 :00 E11.65 Medical STRIPS) Branch strip blood sugar 2020-09- No [id number] Use twice [facility] diagnostic 10-04 a day for ity of (ONETOUCH 00:00: 00:00 ICD CODE [place] as VERIO TEST 00 :00 E11.65 Medical STRIPS) Branch strip metFORMIN 2020-09- No [id number] 500mg Take 1 [facility] 500 mg 10-04 tablet by ity of tablet 00:00: 00:00 mouth 2 [place] 00 :00 (two) Medical times Branch daily with meals. semaglutide 2020-09- No [id number] Inject 0.5 [facility] (OZEMPIC) 10-04 mg under ity o f 0.25 mg or 00:00: 00:00 the skin [place] 0.5 mg(2 00 :00 weekly. Medical mg/1.5 mL) Branch PnIj METFORMIN 2020-09- No [id number] TAKE 1 [facility] nivers 500 mg 08-04 TABLET BY ity of tablet 00:00: 00:00 MOUTH [place] 00 :00 TWICE Medical DAILY WITH Branch MEALS pregabalin 2020- No [id number] 150mg Take 1 [facility] 150 mg 05-19 capsule by ity of capsule 00:00: 00:00 mouth 3 [place] 00 :00 (three) Medical times Branch daily. methylPREDN 2020- No [id number] 84mg Take 21 [facility] ISolone 05-08 tablets by ity o f (MEDROL, 00:00: 00:00 mouth [place] ASHLEY,) 4 mg 00 :00 SEE-INSTRU Med ical tablets CTIONS. Branch follow package directions diclofenac 2020- No [id number] 75mg Take 1 [facility] nivers 75 mg EC 04-29 tablet by ity o f tablet 00:00: 00:00 mouth 2 [place] 00 :00 (two) Medical times Branch daily with meals. AMITRIPTYLI 2020- No [id number] 100mg TAKE 2 [facility] NE 50 mg 04-29 TABLETS BY ity of tablet 00:00: 00:00 MOUTH AT [place] 00 :00 BEDTIME Medical Branch rosuvastati 2020- No 10mg Take 1 [facility] vers n 10 mg 04-28 tablet by ity of tablet 00:00: 00:00 mouth at [place] 00 :00 bedtime. Medical Branch methylPREDN 2020- No [id number] Follow [facility] ISolone 4 7-27 -09 package ity of mg tablets 00:00: 00:00 directions [place] 00 :00 Medical Branch naproxen 2020- No [id number] 375mg Take 1 [facility] 375 mg 04-07 tablet by ity of tablet 00:00: 00:00 mouth 2 [place] 00 :00 (two) Medical times Branch daily with meals. traMADoL 50 2020- No [id number] 50mg Take 1 [facility] vers mg tablet 04-07 tablet by ity of 00:00: 00:00 mouth [place] 00 :00 every 6 Medical (six) Branch hours. Indication s: acute pain ibuprofen 2020- No [id number] 600mg Take 1 [facility] 600 mg 04-01 9103 tablet by ity of tablet 00:00: 00:00 mouth [place] 00 :00 every 8 Medical (eight) Branch hours as needed for Pain (scale 4-6). hydrOXYzine 2020- No [id number] 1-2 tabs [facility] 25 mg 03-28 Every 6hr ity of tablet 00:00: 00:00 as needed [place] 00 :00 for itch Medical or rash, Branch usual is 3 times a day. triamcinolo 2020- No [id number] Apply to [facility] ne 0.025 % 03-28 area(s) 3 ity of ointment 00:00: 00:00 (three) [place] 00 :00 times Medical daily. For Branch itching sulfamethox 2020- No [id number] 1{tbl} Take 1 [facility] azole-trime 03-27 [id number] tablet by ity of thoprim 00:00: 04:59 mouth 2 [place] (BACTRIM 00 :00 (two) Medical DS) 800-160 times Branch mg per daily for tablet 10 days. sulfamethox 2020- No [id number] 1{tbl} Take 1 [facility] azole-trime 03-27 [id number] tablet by ity of thoprim 00:00: 04:59 mouth 2 [place] (BACTRIM 00 :00 (two) Medical DS) 800-160 times Branch mg per daily for tablet 10 days. mirabegron 2020- No [id number] 50mg Take 1 [facility] (MYRBETRIQ) 608-04 tablet by it y of 50 mg 00:00: 00:00 mouth [place] tablet 00 :00 daily. Medical Branch mirabegron 2020- No [id number] 50mg Take 1 [facility] (MYRBETRIQ) 608-04 tablet by it y of 50 mg 00:00: 00:00 mouth [place] tablet 00 :00 daily. Medical Branch mirabegron 2020- No [id number] 50mg Take 1 [facility] (MYRBETRIQ) 03-25 tablet by it y of 50 mg 00:00: 00:00 mouth [place] tablet 00 :00 daily. Medical Branch mirabegron 2020- No [id number] 50mg Take 1 [facility] (MYRBETRIQ) 03-25 tablet by it y of 50 mg 00:00: 00:00 mouth [place] tablet 00 :00 daily. Medical Branch metFORMIN 2020- No [id number] 500mg Take 1 [facility] 500 mg -23 05- tablet by ity of tablet 00:00: 00:00 mouth 2 [place] 00 :00 (two) Medical times Branch daily with meals. metFORMIN 2020- No [id number] 500mg Take 1 [facility] 500 mg -23 05- tablet by ity of tablet 00:00: 00:00 mouth 2 [place] 00 :00 (two) Medical times Branch daily with meals. metFORMIN 2020- No [id number] 500mg Take 1 [facility] 500 mg -23 05- tablet by ity of tablet 00:00: 00:00 mouth 2 [place] 00 :00 (two) Medical times Branch daily with meals. diclofenac 2020- No [id number] 75mg Take 1 [facility] nivers 75 mg EC 03-23- tablet by ity o f tablet 00:00: 00:00 mouth 2 [place] 00 :00 (two) Medical times Branch daily with meals. diclofenac 2020- No [id number] 75mg Take 1 U nivers 75 mg EC 03-23- tablet by ity o f tablet 00:00: 00:00 mouth 2 [place] 00 :00 (two) Medical times Branch daily with meals. diclofenac 2020- No [id number] 75mg Take 1 U nivers 75 mg EC 03-23 tablet by ity o f tablet 00:00: 00:00 mouth 2 [place] 00 :00 (two) Medical times Branch daily with meals. mirabegron 2020- No [id number] 50mg Take 1 [facility] (MYRBETRIQ) 03-13 tablet by it y of 50 mg 00:00: 00:00 mouth [place] tablet 00 :00 daily. Medical Branch diltiazem 2020- No [id number] 120mg Take 1 [facility] (CARTIA XT) 03-13 capsule by i ty of 120 mg 24 00:00: 00:00 mouth 2 [place] hr capsule 00 :00 (two) Medical times Branch daily. mirabegron 2020- No [id number] 50mg Take 1 [facility] (MYRBETRIQ) 03-13 tablet by it y of 50 mg 00:00: 00:00 mouth [place] tablet 00 :00 daily. Medical Branch diltiazem 2020- No [id number] 120mg Take 1 [facility] (CARTIA XT) 03-13 capsule by i ty of 120 mg 24 00:00: 00:00 mouth 2 [place] hr capsule 00 :00 (two) Medical times Branch daily. mirabegron 2020- No [id number] 50mg Take 1 [facility] (MYRBETRIQ) 03-13 tablet by it y of 50 mg 00:00: 00:00 mouth [place] tablet 00 :00 daily. Medical Branch diltiazem 2020- No [id number] 120mg Take 1 [facility] (CARTIA XT) 03-13 capsule by i ty of 120 mg 24 00:00: 00:00 mouth 2 [place] hr capsule 00 :00 (two) Medical times Branch daily. mirabegron 2020- No [id number] 50mg Take 1 [facility] (MYRBETRIQ) 03-13 tablet by it y of 50 mg 00:00: 00:00 mouth [place] tablet 00 :00 daily. Medical Branch diltiazem 2020- No [id number] 120mg Take 1 [facility] (CARTIA XT) 03-13 capsule by i ty of 120 mg 24 00:00: 00:00 mouth 2 [place] hr capsule 00 :00 (two) Medical times Branch daily. mirabegron 2020- No [id number] 50mg Take 1 [facility] (MYRBETRIQ) 03-13 tablet by it y of 50 mg 00:00: 00:00 mouth [place] tablet 00 :00 daily. Medical Branch diltiazem 2020- No [id number] 120mg Take 1 [facility] (CARTIA XT) 03-13 capsule by i ty of 120 mg 24 00:00: 00:00 mouth 2 [place] hr capsule 00 :00 (two) Medical times Branch daily. busPIRone 2020- No [id number] 20mg Take 2 U nivers 10 mg 6-16 - tablets by ity of tablet 00:00: 00:00 mouth 2 [place] 00 :00 (two) Medical times Branch daily. busPIRone 2020- No [id number] 20mg Take 2 U nivers 10 mg -16 - tablets by ity of tablet 00:00: 00:00 mouth 2 [place] 00 :00 (two) Medical times Branch daily. busPIRone 2020- No [id number] 20mg Take 2 U nivers 10 mg -16 - tablets by ity of tablet 00:00: 00:00 mouth 2 [place] 00 :00 (two) Medical times Branch daily. busPIRone 2020- No [id number] 20mg Take 2 U nivers 10 mg -16 - tablets by ity of tablet 00:00: 00:00 mouth 2 [place] 00 :00 (two) Medical times Branch daily. busPIRone 2020- No [id number] 20mg Take 2 U nivers 10 mg 6-16 - tablets by ity of tablet 00:00: 00:00 mouth 2 [place] 00 :00 (two) Medical times Branch daily. Nitrofurant 2020- No [id number] 100mg Take 1 [facility] oin&Nit. -15 08-04 capsule by ity of Macrocryst 00:00: 00:00 mouth 2 [place] (MACROBID) 00 :00 (two) Medical 100 mg times Branch capsule daily. Nitrofurant 2020- No [id number] 100mg Take 1 [facility] oin&Nit. 615 08-04 capsule by ity of Macrocryst 00:00: 00:00 mouth 2 [place] (MACROBID) 00 :00 (two) Medical 100 mg times Branch capsule daily. Nitrofurant 2020- No [id number] 100mg Take 1 [facility] oin&Nit. 615 08-04 capsule by ity of Macrocryst 00:00: 00:00 mouth 2 [place] (MACROBID) 00 :00 (two) Medical 100 mg times Branch capsule daily. Nitrofurant 2020-2020- No [id number] 100mg Take 1 [facility] oin&Nit. 615 08-04 capsule by ity of Macrocryst 00:00: 00:00 mouth 2 [place] (MACROBID) 00 :00 (two) Medical 100 mg times Branch capsule daily. Nitrofurant 2020- No [id number] 100mg Take 1 [facility] oin&Nit. 15 08-04 capsule by ity of Macrocryst 00:00: 00:00 mouth 2 [place] (MACROBID) 00 :00 (two) Medical 100 mg times Branch capsule daily. Blood-Gluco 2021- No [id number] Use twice [facility] se Meter 6-14 03-08 a day for ity o f (ONETOUCH 00:00: 00:00 ICD CODE [place] as VERIO FLEX 00 :00 E11.65 Medical START) Kit Chromo Blood-Gluco 2021- No [id number] Use twice [facility] se Meter 6-14 03-08 a day for ity o f (ONETOUCH 00:00: 00:00 ICD CODE [place] as VERIO FLEX 00 :00 E11.65 Medical START) Kit Chromo Blood-Gluco 2021- No [id number] Use twice [facility] se Meter 6-14 03-08 a day for ity o f (ONETOUCH 00:00: 00:00 ICD CODE [place] as VERIO FLEX 00 :00 E11.65 Medical START) Kit Chromo Blood-Gluco 2021- No [id number] Use twice [facility] se Meter 6-14 03-08 a day for ity o f (ONETOUCH 00:00: 00:00 ICD CODE [place] as VERIO FLEX 00 :00 E11.65 Medical START) Kit Chromo Blood-Gluco 2021- No [id number] Use twice [facility] se Meter 6-14 03-08 a day for ity o f (ONETOUCH 00:00: 00:00 ICD CODE [place] as VERIO FLEX 00 :00 E11.65 Medical CONEHATTA) Kit Chromo Blood-Gluco 2021- No [id number] Use twice [facility] se Meter 6-14 03-08 a day for ity o f (ONETOUCH 00:00: 00:00 ICD CODE Emanuel as VERIO FLEX 00 :00 E11.65 Medical START) [facility] Blood-Gluco 2021- No [id number] Use twice [facility] se Meter 6-14 03-08 a day for ity o f (ONETOUCH 00:00: 00:00 ICD CODE [place] as VERIO FLEX 00 :00 . Medical CONEHATTA) [facility] Blood-Gluco 2021- No [id number] Use twice [facility] se Meter 6-14 03-08 a day for ity o f (ONETOUCH 00:00: 00:00 ICD CODE E[place] as VERIO FLEX 00 :00 . Medical START) [facility] Lancing 2021- No [id number] To use Uni vers Device with 6-14 02-08 twice a ity of Lancets 00:00: 00:00 day for [place] (ONE TOUCH 00 :00 ICD code Medic al DELICA) Kit E11.65 Chromo Lancing 2021- No [id number] To use Uni vers Device with 6-14 02-08 twice a ity of Lancets 00:00: 00:00 day for [place] (ONE TOUCH 00 :00 ICD code Medic al DELICA) Kit E11.65 Chromo Lancing 2021- No [id number] To use Uni vers Device with 6-14 02-08 twice a ity of Lancets 00:00: 00:00 day for [place] (ONE TOUCH 00 :00 ICD code Medic al DELICA) Kit E11.65 Chromo Lancing 2021- No [id number] To use Uni vers Device with 6-14 02-08 twice a ity of Lancets 00:00: 00:00 day for [place] (ONE TOUCH 00 :00 ICD code Medic al DELICA) Kit E11.65 Branch Lancing 2021- No [id number] To use Uni vers Device with -09 11-08 twice a ity of Lancets 00:00: 00:00 day for [place] (ONE TOUCH 00 :00 ICD code Medic al DELICA) Kit E11.65 Branch Lancing 2021- No [id number] To use Uni vers Device with 03-09-08 twice a ity of Lancets 00:00: 00:00 day for [place] (ONE TOUCH 00 :00 ICD code Medic al DELICA) Kit E11.65 Branch Lancing 2021- No [id number] To use Uni vers Device with -09 11-08 twice a ity of Lancets 00:00: 00:00 day for [place] (ONE TOUCH 00 :00 ICD code Medic al DELICA) Kit E11.65 Branch blood sugar 2020- No [id number] Use twice [facility] diagnostic 03-09 a day for ity of (ONETOUCH 00:00: 00:00 ICD CODE Emanuel as VERIO TEST 00 :00 E11.65 Medical STRIPS) Branch strip lancets 2020- No [id number] Use twice [facility] (ONE TOUCH 03-09 a day for ity of DELICA) 33 00:00: 00:00 ICD code [place] gauge Misc 00 :00 E11.65 Medical Branch blood sugar 2020- No [id number] Use twice [facility] diagnostic 03-09 a day for ity of (ONETOUCH 00:00: 00:00 ICD CODE Emanuel as VERIO TEST 00 :00 E11.65 Medical STRIPS) Branch strip lancets 2020- No [id number] Use twice [facility] (ONE TOUCH 03-09 a day for ity of DELICA) 33 00:00: 00:00 ICD code [place] gauge Misc 00 :00 E11.65 Medical Branch blood sugar 2020- No [id number] Use twice [facility] diagnostic 03-09 a day for ity of (ONETOUCH 00:00: 00:00 ICD CODE Emanuel as VERIO TEST 00 :00 E11.65 Medical STRIPS) Branch strip lancets 2020- No [id number] Use twice [facility] (ONE TOUCH -14 08-04 a day for ity of DELICA) 33 00:00: 00:00 ICD code [place] gauge Misc 00 :00 E11.65 Medical Branch blood sugar 2020- No [id number] Use twice [facility] diagnostic 14 08-04 a day for ity of (ONETOUCH 00:00: 00:00 ICD CODE Emanuel as VERIO TEST 00 :00 E11.65 Medical STRIPS) Branch strip lancets 2020- No [id number] Use twice [facility] (ONE TOUCH -14 08-04 a day for ity of DELICA) 33 00:00: 00:00 ICD code [place] gauge Misc 00 :00 E11.65 Medical Branch blood sugar 2020- No [id number] Use twice [facility] diagnostic 03-09 a day for ity of (ONETOUCH 00:00: 00:00 ICD CODE Emanuel as VERIO TEST 00 :00 E11.65 Medical STRIPS) Branch strip lancets 2020- No [id number] Use twice [facility] (ONE TOUCH 14 08-04 a day for ity of DELICA) 33 00:00: 00:00 ICD code [place] gauge Misc 00 :00 E11.65 Medical Branch LEVOTHYROXI 2020- No [id number] TAKE 1 [facility] NE 50 mcg 02-24 TABLET BY ity of tablet 00:00: 00:00 MOUTH ONCE [place] 00 :00 DAILY IN Medical THE Branch MORNING semaglutide 2020- No [id number] .5mg inject 0.5 [facility] (OZEMPIC) 02-24 mg under ity o f 0.25 mg or 00:00: 00:00 the skin [place] 0.5 mg(2 00 :00 weekly. Medical mg/1.5 mL) Branch PnIj cyanocobala 2020- No [id number] 1000ug 1 mL by Univers min 1,000 02-24 Intramuscu ity of mcg/mL 00:00: 00:00 lar route [place] injection 00 :00 every 2 Medical (two) Branch weeks. Insulin 2020- No [id number] Use as Uni vers Raysal, 02-24 directed ity of Disposable, 00:00: 00:00 to inject [place] (PEN 00 :00 Ozempic Medical NEEDLE) 32 once Branch gauge x weekly " Ndle LEVOTHYROXI 2020- No [id number] TAKE 1 [facility] NE 50 mcg 02-24 TABLET BY ity of tablet 00:00: 00:00 MOUTH ONCE [place] 00 :00 DAILY IN Medical THE Branch MORNING semaglutide 2020- No [id number] .5mg inject 0.5 [facility] (OZEMPIC) 02-24 mg under ity o f 0.25 mg or 00:00: 00:00 the skin [place] 0.5 mg(2 00 :00 weekly. Medical mg/1.5 mL) Branch PnIj cyanocobala 2020- No [id number] 1000ug 1 mL by [facility] min 1,000 02-24 Intramuscu ity of mcg/mL 00:00: 00:00 lar route [place] injection 00 :00 every 2 Medical (two) Branch weeks. Insulin 2020- No [id number] Use as Uni vers Raysal, 02-24 directed ity of Disposable, 00:00: 00:00 to inject [place] (PEN 00 :00 Ozempic Medical NEEDLE) 32 once Branch gauge x weekly " Ndle LEVOTHYROXI 2020- No [id number] TAKE 1 [facility] NE 50 mcg 02-24 TABLET BY ity of tablet 00:00: 00:00 MOUTH ONCE [place] 00 :00 DAILY IN Medical THE Branch MORNING semaglutide 2020- No [id number] .5mg inject 0.5 [facility] (OZEMPIC) 02-24 mg under ity o f 0.25 mg or 00:00: 00:00 the skin [place] 0.5 mg(2 00 :00 weekly. Medical mg/1.5 mL) Branch PnIj cyanocobala 2020- No [id number] 1000ug 1 mL by [facility] min 1,000 02-24 Intramuscu ity of mcg/mL 00:00: 00:00 lar route [place] injection 00 :00 every 2 Medical (two) Branch weeks. Insulin 2020- No [id number] Use as Uni vers Raysal, 02-24 directed ity of Disposable, 00:00: 00:00 to inject [place] (PEN 00 :00 Ozempic Medical NEEDLE) 32 once Branch gauge x weekly " Ndle LEVOTHYROXI 2020- No [id number] TAKE 1 [facility] NE 50 mcg 02-24 TABLET BY ity of tablet 00:00: 00:00 MOUTH ONCE [place] 00 :00 DAILY IN Medical THE Branch MORNING semaglutide No [id number] .5mg inject 0.5 [facility] (OZEMPIC) 02-24 mg under ity o f 0.25 mg or 00:00: 00:00 the skin [place] 0.5 mg(2 00 :00 weekly. Medical mg/1.5 mL) Branch PnIj cyanocobala 2020- No [id number] 1000ug 1 mL by [facility] min 1,000 02-24 Intramuscu ity of mcg/mL 00:00: 00:00 lar route [place] injection 00 :00 every 2 Medical (two) Branch weeks. Insulin No [id number] Use as Uni vers Raysal, 02-24 directed ity of Disposable, 00:00: 00:00 to inject [place] (PEN 00 :00 Ozempic Medical NEEDLE) 32 once Branch gauge x weekly " Ndle LEVOTHYROXI 2020- No [id number] TAKE 1 [facility] NE 50 mcg 02-24 TABLET BY ity of tablet 00:00: 00:00 MOUTH ONCE [place] 00 :00 DAILY IN Medical THE Branch MORNING semaglutide 2020- No [id number] .5mg inject 0.5 [facility] (OZEMPIC) 02-24 mg under ity o f 0.25 mg or 00:00: 00:00 the skin [place] 0.5 mg(2 00 :00 weekly. Medical mg/1.5 mL) Branch PnIj cyanocobala 2020- No [id number] 1000ug 1 mL by [facility] min 1,000 02-24 Intramuscu ity of mcg/mL 00:00: 00:00 lar route [place] injection 00 :00 every 2 Medical (two) Branch weeks. Insulin 2020- No [id number] Use as Uni vers Raysal, 02-24 directed ity of Disposable, 00:00: 00:00 to inject [place] (PEN 00 :00 Ozempic Medical NEEDLE) 32 once Branch gauge x weekly " Ndle LEVOTHYROXI 2020- No [id number] TAKE 1 [facility] NE 50 mcg 02-24 TABLET BY ity of tablet 00:00: 00:00 MOUTH ONCE [place] 00 :00 DAILY IN Medical THE Branch MORNING semaglutide 2020- No [id number] .5mg inject 0.5 [facility] (OZEMPIC) 02-24 mg under ity o f 0.25 mg or 00:00: 00:00 the skin [place] 0.5 mg(2 00 :00 weekly. Medical mg/1.5 mL) Branch PnIj cyanocobala 2020- No [id number] 1000ug 1 mL by [facility] min 1,000 02-24 Intramuscu ity of mcg/mL 00:00: 00:00 lar route [place] injection 00 :00 every 2 Medical (two) Branch weeks. Insulin 2020- No [id number] Use as Uni vers Raysal, 02-24 directed ity of Disposable, 00:00: 00:00 to inject [place] (PEN 00 :00 Ozempic Medical NEEDLE) 32 once Branch gauge x weekly " Ndle mirabegron 2020- No [id number] 50mg Take 1 [facility] (MYRBETRIQ) 02-24 tablet by it y of 50 mg 00:00: 00:00 mouth [place] tablet 00 :00 daily. Medical Branch Nitrofurant 2020- No [id number] 100mg Take 1 [facility] oin&Nit. 02-1015 capsule by ity of Macrocryst 00:00: 00:00 mouth 2 [place] as (MACROBID) 00 :00 (two) Medical 100 mg times Branch capsule daily with meals. fluticasone 2020- No [id number] 2{puff} Inhale 2 [facility] propionate 5-11 11-09 Puffs ity of (FLOVENT 00:00: 00:00 every 12 [place] HFA) 110 00 :00 (twelve) Medical mcg/actuati hours. Branch on inhaler Rinse mouth after each use. levalbutero 2020- No [id number] .63mg Inhale Univers l 0.63 mg/3 5-11 11-09 0.63 mg 3 it y of mL 00:00: 00:00 (three) [place] nebulizer 00 :00 times Medical solution daily as Branch needed for Wheezing or Shortness of Breath. fluticasone 2020- No [id number] 2{puff} Inhale 2 [facility] propionate 5-11 11-09 Puffs ity of (FLOVENT 00:00: 00:00 every 12 [place] HFA) 110 00 :00 (twelve) Medical mcg/actuati hours. Branch on inhaler Rinse mouth after each use. levalbutero 2020- No [id number] .63mg Inhale Univers l 0.63 mg/3 5- 11-09 0.63 mg 3 it y of mL 00:00: 00:00 (three) [place] nebulizer 00 :00 times Medical solution daily as Branch needed for Wheezing or Shortness of Breath. fluticasone 2020- No [id number] 2{puff} Inhale 2 [facility] propionate 5-11 11-09 Puffs ity of (FLOVENT 00:00: 00:00 every 12 [place] HFA) 110 00 :00 (twelve) Medical mcg/actuati hours. Branch on inhaler Rinse mouth after each use. levalbutero 2020- No [id number] .63mg Inhale Univers l 0.63 mg/3 5-11 11-09 0.63 mg 3 it y of mL 00:00: 00:00 (three) [place] nebulizer 00 :00 times Medical solution daily as Branch needed for Wheezing or Shortness of Breath. fluticasone 2020- No [id number] 2{puff} Inhale 2 [facility] propionate 5-11 11-09 Puffs ity of (FLOVENT 00:00: 00:00 every 12 [place] HFA) 110 00 :00 (twelve) Medical mcg/actuati hours. Branch on inhaler Rinse mouth after each use. levalbutero 2020- No [id number] .63mg Inhale Univers l 0.63 mg/3 5- 11-09 0.63 mg 3 it y of mL 00:00: 00:00 (three) [place] nebulizer 00 :00 times Medical solution daily as Branch needed for Wheezing or Shortness of Breath. fluticasone 2020- No [id number] 2{puff} Inhale 2 [facility] propionate -08 06-09 Puffs ity of (FLOVENT 00:00: 00:00 every 12 [place] HFA) 110 00 :00 (twelve) Medical mcg/actuati hours. Branch on inhaler Rinse mouth after each use. levalbutero 2020- No [id number] .63mg Inhale Univers l 0.63 mg/3 02-03-09 0.63 mg 3 it y of mL 00:00: 00:00 (three) [place] nebulizer 00 :00 times Medical solution daily as Branch needed for Wheezing or Shortness of Breath. fluticasone 2020- No [id number] 2{puff} Inhale 2 [facility] propionate -08 06-09 Puffs ity of (FLOVENT 00:00: 00:00 every 12 [place] HFA) 110 00 :00 (twelve) Medical mcg/actuati hours. Branch on inhaler Rinse mouth after each use. levalbutero 2020- No [id number] .63mg Inhale Univers l 0.63 mg/3 02-03 11-09 0.63 mg 3 it y of mL 00:00: 00:00 (three) [place] nebulizer 00 :00 times Medical solution daily as Branch needed for Wheezing or Shortness of Breath. metFORMIN 2020- No [id number] 500mg Take 1 [facility] 500 mg 01-28 tablet by ity of tablet 00:00: 00:00 mouth 2 [place] 00 :00 (two) Medical times Branch daily with meals. metFORMIN 2020- No [id number] 500mg Take 1 [facility] 500 mg 5-03-22 tablet by ity of tablet 00:00: 00:00 mouth 2 [place] 00 :00 (two) Medical times Branch daily with meals. metFORMIN 2020-0 2020- No [id number] 500mg Take 1 [facility] 500 mg 5-01 29- tablet by ity of tablet 00:00: 00:00 mouth 2 [place] 00 :00 (two) Medical times Branch daily with meals. LUTEIN ORAL 2020-0 2020- No Take by Un jerrod 30 -25 mouth. ity of 13:07: 00:00 [place] 06 :00 Medical Branch LUTEIN ORAL 2020-0 2020- No Take by Un jerrod 30 25 mouth. ity of 13:07: 00:00 06 :00 Medical Branch LUTEIN ORAL 2020-0 2020- No Take by Un jerrod 01-2325 mouth. ity of 13:07: 00:00 [place] 06 :00 Medical Branch LUTEIN ORAL 2020-0 2020- No Take by Un jerrod 30 25 mouth. ity of 13:07: 00:00 [place] 06 :00 Medical Branch LUTEIN ORAL 2020-0 2020- No Take by Un jerrod -30 25 mouth. ity of 13:07: 00:00 [place] 06 :00 Medical Branch LUTEIN ORAL 202-0 2020- No Take by Un jerrod 01-2325 mouth. ity of 13:07: 00:00 [place] 06 :00 Medical Branch LUTEIN ORAL 2021-0 2020- No Take by Un jerrod 30 25 mouth. ity of 13:07: 00:00 [place] 06 :00 Medical Branch diclofenac 2021-0 2021- No 75mg Take 1 Univ ers 75 mg EC 01-23 tablet by ity o f tablet 00:00: 00:00 mouth 2 [place] 00 :00 (two) Medical times Branch daily with meals. diclofenac 2021-0 2021- No 75mg Take 1 Univ ers 75 mg EC 01-23 tablet by ity o f tablet 00:00: 00:00 mouth 2 [place] 00 :00 (two) Medical times Branch daily with meals. diclofenac 2021-0 2021- No 75mg Take 1 [facility] 75 mg EC 01-23 tablet by ity o f tablet 00:00: 00:00 mouth 2 [place] 00 :00 (two) Medical times Branch daily with meals. diclofenac 2020-2020- No 75mg Take 1 [facility] ers 75 mg EC 01-23 tablet by ity o f tablet 00:00: 00:00 mouth 2 [place] 00 :00 (two) Medical times Branch daily with meals. losartan 50 2020-2020- No [id number] 50mg Take 1 [facility] mg tablet 01-21 tablet by ity of 00:00: 00:00 mouth 2 [place] 00 :00 (two) Medical times Branch daily. losartan 50 2020-2020- No [id number] 50mg Take 1 [facility] mg tablet 01-21 tablet by ity of 00:00: 00:00 mouth 2 [place] 00 :00 (two) Medical times Branch daily. losartan 50 2020-2020- No [id number] 50mg Take 1 [facility] mg tablet 01-21 tablet by ity of 00:00: 00:00 mouth 2 [place] 00 :00 (two) Medical times Branch daily. losartan 50 2020-2020- No [id number] 50mg Take 1 [facility] mg tablet 01-21 tablet by ity of 00:00: 00:00 mouth 2 [place] 00 :00 (two) Medical times Branch daily. losartan 50 2020-0 2020- No [id number] 50mg Take 1 [facility] mg tablet 01-21 tablet by ity of 00:00: 00:00 mouth 2 [place] 00 :00 (two) Medical times Branch daily. losartan 50 2020-0 2020- No [id number] 50mg Take 1 [facility] mg tablet 01-21 tablet by ity of 00:00: 00:00 mouth 2 [place] 00 :00 (two) Medical times Branch daily. losartan 50 2020-0 2020- No [id number] 50mg Take 1 [facility] mg tablet 01-21 tablet by ity of 00:00: 00:00 mouth 2 [place] 00 :00 (two) Medical times Branch daily. losartan 50 2020-0 2020- No [id number] 50mg Take 1 [facility] mg tablet 01-21 tablet by ity of 00:00: 00:00 mouth 2 [place] 00 :00 (two) Medical times Branch daily. rosuvastati 2020- No 10mg Take 1 [facility] vers n 10 mg 01-21- tablet by ity of tablet 00:00: 00:00 mouth at [place] 00 :00 bedtime. Medical Branch rosuvastati 2020- No 10mg Take 1 [facility] vers n 10 mg 01-21 tablet by ity of tablet 00:00: 00:00 mouth at [place] 00 :00 bedtime. Medical Branch rosuvastati 2020- No 10mg Take 1 [facility] vers n 10 mg 01-21 tablet by ity of tablet 00:00: 00:00 mouth at [place] 00 :00 bedtime. Medical Branch rosuvastati 2020- No 10mg Take 1 [facility] vers n 10 mg 01-21 tablet by ity of tablet 00:00: 00:00 mouth at [place] 00 :00 bedtime. Medical Branch rosuvastati 2020- No 10mg Take 1 [facility] vers n 10 mg 01-21 tablet by ity of tablet 00:00: 00:00 mouth at [place] 00 :00 bedtime. Medical Branch rosuvastati 2020- No 10mg Take 1 [facility] vers n 10 mg 01-21 tablet by ity of tablet 00:00: 00:00 mouth at [place] 00 :00 bedtime. Medical Branch rosuvastati 2020- No 10mg Take 1 [facility] vers n 10 mg 01-21 tablet by ity of tablet 00:00: 00:00 mouth at [place] 00 :00 bedtime. Medical Branch diltiazem 2020- No [id number] 120mg Take 1 [facility] (CARTIA XT) 01-21 06-15 capsule by i ty of 120 mg 24 00:00: 00:00 mouth 2 [place] capsule 00 :00 (two) Medical times Branch daily for 90 days. diltiazem 2020- No [id number] 120mg Take 1 [facility] (CARTIA XT) 01-21 06-15 capsule by i ty of 120 mg 24 00:00: 00:00 mouth 2 [place] capsule 00 :00 (two) Medical times Branch daily for 90 days. diltiazem 2020- No [id number] 120mg Take 1 [facility] (CARTIA XT) 01-21 06-15 capsule by i ty of 120 mg 24 00:00: 00:00 mouth 2 [place] capsule 00 :00 (two) Medical times Chromo daily for 90 days. clotrimazol 2020- No [id number] Apply to [facility] e-betametha 01-14 area(s) 2 it y of sone cream 00:00: 00:00 (two) [place] 00 :00 times Medical daily. Branch clotrimazol 2020- No [id number] Apply to [facility] e-betametha 01-14 area(s) 2 it y of sone cream 00:00: 00:00 (two) [place] 00 :00 times Medical daily. Branch clotrimazol 2020- No [id number] Apply to [facility] e-betametha 01-14 area(s) 2 it y of sone cream 00:00: 00:00 (two) [place] 00 :00 times Medical daily. Branch clotrimazol 2020- No [id number] Apply to [facility] e-betametha 01-14 area(s) 2 it y of sone cream 00:00: 00:00 (two) [place] 00 :00 times Medical daily. Branch clotrimazol 2020- No [id number] Apply to [facility] e-betametha 01-14 area(s) 2 it y of sone cream 00:00: 00:00 (two) [place] 00 :00 times Medical daily. Branch clotrimazol 2020- No [id number] Apply to [facility] e-betametha 01-14 area(s) 2 it y of sone cream 00:00: 00:00 (two) [place] 00 :00 times Medical daily. Branch clotrimazol 2020- No [id number] Apply to [facility] e-betametha 01-14 area(s) 2 it y of sone cream 00:00: 00:00 (two) [place] 00 :00 times Medical daily. Branch clotrimazol 2020- No [id number] Apply to [facility] e-betametha 01-14 area(s) 2 it y of sone cream 00:00: 00:00 (two) [place] 00 :00 times Medical daily. Branch ibuprofen 2020- No [id number] 600mg Take 1 [facility] 600 mg 01-04 tablet by ity of tablet 00:00: 00:00 mouth [place] 00 :00 every 6 Medical (six) Branch hours as needed for Pain (scale 4-6). ibuprofen 2020- No [id number] 600mg Take 1 [facility] 600 mg 01-04 tablet by ity of tablet 00:00: 00:00 mouth [place] 00 :00 every 6 Medical (six) Branch hours as needed for Pain (scale 4-6). ibuprofen No [id number] 600mg Take 1 [facility] 600 mg 01-04 tablet by ity of tablet 00:00: 00:00 mouth [place] 00 :00 every 6 Medical (six) Branch hours as needed for Pain (scale 4-6). ibuprofen 2020- No [id number] 600mg Take 1 [facility] 600 mg 01-04 tablet by ity of tablet 00:00: 00:00 mouth [place] 00 :00 every 6 Medical (six) Branch hours as needed for Pain (scale 4-6). ibuprofen No [id number] 600mg Take 1 [facility] 600 mg 01-04 tablet by ity of tablet 00:00: 00:00 mouth [place] 00 :00 every 6 Medical (six) Branch hours as needed for Pain (scale 4-6). ibuprofen No [id number] 600mg Take 1 [facility] 600 mg 01-04 tablet by ity of tablet 00:00: 00:00 mouth [place] 00 :00 every 6 Medical (six) Branch hours as needed for Pain (scale 4-6). ibuprofen 2020- No [id number] 600mg Take 1 [facility] 600 mg 01-04 tablet by ity of tablet 00:00: 00:00 mouth [place] 00 :00 every 6 Medical (six) Branch hours as needed for Pain (scale 4-6). ibuprofen 2020- No [id number] 600mg Take 1 [facility] 600 mg 4-11 11-09 tablet by ity of tablet 00:00: 00:00 mouth [place] 00 :00 every 6 Medical (six) Branch hours as needed for Pain (scale 4-6). cyclobenzap 2020- No [id number] TAKE 1 [facility] rine 5 mg 3-16 11-09 TABLET BY ity of tablet 00:00: 00:00 MOUTH [place] 00 :00 EVERY 8 Medical HOURS Branch NEEDED cyclobenzap 2020- No [id number] TAKE 1 [facility] rine 5 mg 3-16 11-09 TABLET BY ity of tablet 00:00: 00:00 MOUTH [place] 00 :00 EVERY 8 Medical HOURS Branch NEEDED cyclobenzap 2020- No [id number] TAKE 1 [facility] rine 5 mg 3-16 11-09 TABLET BY ity of tablet 00:00: 00:00 MOUTH [place] 00 :00 EVERY 8 Medical HOURS Branch NEEDED cyclobenzap 2020- No [id number] TAKE 1 [facility] rine 5 mg 3-16 11-09 TABLET BY ity of tablet 00:00: 00:00 MOUTH [place] 00 :00 EVERY 8 Medical HOURS Branch NEEDED cyclobenzap 2020- No [id number] TAKE 1 [facility] rine 5 mg 3-16 11-09 TABLET BY ity of tablet 00:00: 00:00 MOUTH [place] 00 :00 EVERY 8 Medical HOURS Branch NEEDED cyclobenzap 2020- No [id number] TAKE 1 [facility] rine 5 mg 3-16 11-09 TABLET BY ity of tablet 00:00: 00:00 MOUTH [place] 00 :00 EVERY 8 Medical HOURS Branch NEEDED cyclobenzap 2020-2020- No [id number] TAKE 1 [facility] rine 5 mg 3-16 11-09 TABLET BY ity of tablet 00:00: 00:00 MOUTH [place] 00 :00 EVERY 8 Medical HOURS Branch NEEDED cyclobenzap 2020-2020- No [id number] TAKE 1 [facility] rine 5 mg 3-16 11-09 TABLET BY ity of tablet 00:00: 00:00 MOUTH [place] 00 :00 EVERY 8 Medical HOURS Branch NEEDED pregabalin 2020- No [id number] 150mg Take 1 [facility] 150 mg 2-12 08-24 capsule by ity of capsule 00:00: 00:00 mouth 3 [place] 00 :00 (three) Medical times Branch daily. pregabalin 2020- No [id number] 150mg Take 1 [facility] 150 mg 2-12 -24 capsule by ity of capsule 00:00: 00:00 mouth 3 [place] 00 :00 (three) Medical times Branch daily. pregabalin 2020-2020- No [id number] 150mg Take 1 [facility] 150 mg 2-09 02-24 capsule by ity of capsule 00:00: 00:00 mouth 3 [place] 00 :00 (three) Medical times Branch daily. pregabalin 2020- No [id number] 150mg Take 1 [facility] 150 mg 2-09 02-24 capsule by ity of capsule 00:00: 00:00 mouth 3 [place] 00 :00 (three) Medical times Branch daily. pregabalin 2020- No [id number] 150mg Take 1 [facility] 150 mg 2-09 02-24 capsule by ity of capsule 00:00: 00:00 mouth 3 [place] 00 :00 (three) Medical times Branch daily. pregabalin 2020- No [id number] 150mg Take 1 [facility] 150 mg 2-09 02-24 capsule by ity of capsule 00:00: 00:00 mouth 3 [place] 00 :00 (three) Medical times Branch daily. pregabalin 2020- No [id number] 150mg Take 1 [facility] 150 mg 2-09 02-24 capsule by ity of capsule 00:00: 00:00 mouth 3 [place] 00 :00 (three) Medical times Branch daily. pregabalin 2020- No [id number] 150mg Take 1 [facility] 150 mg 2-09 02-24 capsule by ity of capsule 00:00: 00:00 mouth 3 [place] 00 :00 (three) Medical times Branch daily. pregabalin 2020-2020- No [id number] 150mg Take 1 [facility] 150 mg 2-12 -24 capsule by ity of capsule 00:00: 00:00 mouth 3 [place] 00 :00 (three) Medical times Branch daily. amitriptyli 2020- No [id number] 50mg Take 1 [facility] ne 50 mg 2-09 01- tablet by ity o f tablet 00:00: 00:00 mouth at [place] 00 :00 bedtime. Medical Branch amitriptyli 2020- No [id number] 50mg Take 1 [facility] ne 50 mg 2-09 01- tablet by ity o f tablet 00:00: 00:00 mouth at [place] 00 :00 bedtime. Medical Branch amitriptyli 2020- No [id number] 50mg Take 1 [facility] ne 50 mg 11-07- tablet by ity o f tablet 00:00: 00:00 mouth at [place] 00 :00 bedtime. Medical Branch amitriptyli 2020- No [id number] 50mg Take 1 [facility] ne 50 mg 11-07 tablet by ity o f tablet 00:00: 00:00 mouth at [place] 00 :00 bedtime. Medical Branch amitriptyli 2020- No [id number] 50mg Take 1 [facility] ne 50 mg 11-07 tablet by ity o f tablet 00:00: 00:00 mouth at [place] 00 :00 bedtime. Medical Branch amitriptyli 2020- No [id number] 50mg Take 1 [facility] ne 50 mg 11-07- tablet by ity o f tablet 00:00: 00:00 mouth at [place] 00 :00 bedtime. Medical Branch amitriptyli 2020- No [id number] 50mg Take 1 [facility] ne 50 mg 11-07- tablet by ity o f tablet 00:00: 00:00 mouth at [place] 00 :00 bedtime. Medical Branch amitriptyli 2020- No [id number] 50mg Take 1 [facility] ne 50 mg 11-07- tablet by ity o f tablet 00:00: 00:00 mouth at [place] 00 :00 bedtime. Medical Branch cephALEXin 2020- No [id number] 1 tab 2x/d [facility] 500 mg 10-16 ity of tablet 00:00: 00:00 [place] 00 :00 Medical Branch cephALEXin 2020- No [id number] 1 tab 2x/d [facility] 500 mg 10-16 ity of tablet 00:00: 00:00 [place] 00 :00 Medical Branch cephALEXin 2021-0 2021- No [id number] 1 tab 2x/d [facility] 500 mg 10-16 ity of tablet 00:00: 00:00 [place] 00 :00 Medical Branch cephALEXin 202-0 1- No [id number] 1 tab 2x/d [facility] 500 mg 10-16 ity of tablet 00:00: 00:00 [place] 00 :00 Medical Branch cephALEXin 202-0 2021- No [id number] 1 tab 2x/d [facility] 500 mg 10-16 ity of tablet 00:00: 00:00 [place] 00 :00 Medical Branch cephALEXin 2021-0 2021- No [id number] 1 tab 2x/d [facility] 500 mg 10-16 ity of tablet 00:00: 00:00 [place] 00 :00 Medical Branch cephALEXin 2021-0 2021- No [id number] 1 tab 2x/d [facility] 500 mg 10-16 ity of tablet 00:00: 00:00 [place] 00 :00 Medical Branch cephALEXin 2021-0 2021- No [id number] 1 tab 2x/d [facility] 500 mg 10-16 ity of tablet 00:00: 00:00 [place] 00 :00 Medical Branch cephALEXin 2021-0 1- No [id number] 1 tab 2x/d [facility] 500 mg 10-16 ity of tablet 00:00: 00:00 [place] 00 :00 Medical Branch cephALEXin 2021-0 1- No [id number] 1 tab 2x/d [facility] 500 mg 10-16 ity of tablet 00:00: 00:00 [place] 00 :00 Medical Branch cephALEXin 2021-0 2021- No [id number] 1 tab 2x/d [facility] 500 mg 10-16 ity of tablet 00:00: 00:00 [place] 00 :00 Medical Branch cephALEXin 2021-0 2021- No [id number] 1 tab 2x/d [facility] 500 mg 10-16- ity of tablet 00:00: 00:00 [place] 00 :00 Medical Branch cephALEXin 2021-0 2021- No [id number] 1 tab 2x/d [facility] 500 mg 10-16- ity of tablet 00:00: 00:00 [place] 00 :00 Medical Branch cyclobenzap 2021-0 2021- No [id number] TAKE 1 [facility] rine 5 mg 1-04 -16 TABLET BY ity of tablet 00:00: 00:00 MOUTH [place] 00 :00 EVERY 8 Medical HOURS Branch NEEDED cyclobenzap 2020- No [id number] TAKE 1 [facility] rine 5 mg 1-04 -16 TABLET BY ity of tablet 00:00: 00:00 MOUTH [place] 00 :00 EVERY 8 Medical HOURS Branch NEEDED cyclobenzap 2020-2020- No [id number] TAKE 1 [facility] rine 5 mg 1-04 -16 TABLET BY ity of tablet 00:00: 00:00 MOUTH [place] 00 :00 EVERY 8 Medical HOURS Branch NEEDED cyclobenzap 2020-2020- No [id number] TAKE 1 [facility] rine 5 mg 1-04 -16 TABLET BY ity of tablet 00:00: 00:00 MOUTH [place] 00 :00 EVERY 8 Medical HOURS Branch NEEDED cyclobenzap 2020- No [id number] TAKE 1 [facility] rine 5 mg 1-04 -16 TABLET BY ity of tablet 00:00: 00:00 MOUTH [place] 00 :00 EVERY 8 Medical HOURS Branch NEEDED cyclobenzap 0 2020- No [id number] TAKE 1 [facility] rine 5 mg 1-04 -16 TABLET BY ity of tablet 00:00: 00:00 MOUTH [place] 00 :00 EVERY 8 Medical HOURS Branch NEEDED citalopram 2019-09- No [id number] 40mg Take 1 [facility] 40 mg 2-28 11- tablet by ity of tablet 00:00: 00:00 mouth [place] 00 :00 daily. Medical Branch citalopram 2019-09- No [id number] 40mg Take 1 [facility] 40 mg 2-28 11- tablet by ity of tablet 00:00: 00:00 mouth [place] 00 :00 daily. Medical Branch citalopram 2019-09- No [id number] 40mg Take 1 [facility] 40 mg 2-28 11- tablet by ity of tablet 00:00: 00:00 mouth [place] 00 :00 daily. Medical Branch citalopram 2019-09- No [id number] 40mg Take 1 [facility] 40 mg 2-28 11- tablet by ity of tablet 00:00: 00:00 mouth [place] 00 :00 daily. [facility] citalopram 2019-09- No [id number] 40mg Take 1 [facility] 40 mg 2-28 11-09 tablet by ity of tablet 00:00: 00:00 mouth [place] 00 :00 daily. [facility] citalopram 2019-09- No [id number] 40mg Take 1 [facility] 40 mg 2-28 11-09 tablet by ity of tablet 00:00: 00:00 mouth [place] 00 :00 daily. [facility] citalopram 2019-09- No [id number] 40mg Take 1 [facility] 40 mg 2-28 11-09 tablet by ity of tablet 00:00: 00:00 mouth [place] 00 :00 daily. [facility] citalopram 2019-09- No [id number] 40mg Take 1 [facility] 40 mg 2-28 11- tablet by ity of tablet 00:00: 00:00 mouth [place] 00 :00 daily. [facility] citalopram 2019-09- No [id number] 40mg Take 1 [facility] 40 mg 2-28 11- tablet by ity of tablet 00:00: 00:00 mouth [place] 00 :00 daily. [facility] citalopram 2019-09- No [id number] 40mg Take 1 [facility] 40 mg 2-28 11- tablet by ity of tablet 00:00: 00:00 mouth [place] 00 :00 daily. [facility] citalopram 2019-09- No [id number] 40mg Take 1 [facility] 40 mg 2-28 11-09 tablet by ity of tablet 00:00: 00:00 mouth [place] 00 :00 daily. [facility] citalopram 2019-09- No [id number] 40mg Take 1 [facility] 40 mg 2-28 11-09 tablet by ity of tablet 00:00: 00:00 mouth [place] 00 :00 daily. [facility] citalopram 2019-09- No [id number] 40mg Take 1 [facility] 40 mg 2-28 11-09 tablet by ity of tablet 00:00: 00:00 mouth [place] 00 :00 daily. [facility] citalopram 2019-09- No [id number] 40mg Take 1 [facility] 40 mg 2-28 11-09 tablet by ity of tablet 00:00: 00:00 mouth [place] 00 :00 daily. Medical Branch busPIRone 2019-09- No [id number] 20mg Take 2 U nivers 10 mg 2-28 06-15 tablets by ity of tablet 00:00: 00:00 mouth 2 [place] 00 :00 (two) Medical times Branch daily. busPIRone 2019-09- No [id number] 20mg Take 2 U nivers 10 mg 2-28 06-15 tablets by ity of tablet 00:00: 00:00 mouth 2 [place] 00 :00 (two) Medical times Branch daily. busPIRone 2019-09- No [id number] 20mg Take 2 U nivers 10 mg 2-28 06-15 tablets by ity of tablet 00:00: 00:00 mouth 2 [place] 00 :00 (two) Medical times Branch daily. busPIRone 2019-09- No [id number] 20mg Take 2 U nivers 10 mg 2-28 06-15 tablets by ity of tablet 00:00: 00:00 mouth 2 [place] 00 :00 (two) Medical times Branch daily. busPIRone 2019-09- No [id number] 20mg Take 2 U nivers 10 mg 2-28 06-15 tablets by ity of tablet 00:00: 00:00 mouth 2 [place] 00 :00 (two) Medical times Branch daily. busPIRone 2019-09- No [id number] 20mg Take 2 U nivers 10 mg 2-28 06-15 tablets by ity of tablet 00:00: 00:00 mouth 2 [place] 00 :00 (two) Medical times Branch daily. busPIRone 2019-09- No [id number] 20mg Take 2 U nivers 10 mg 2-28 06-15 tablets by ity of tablet 00:00: 00:00 mouth 2 [place] 00 :00 (two) Medical times Branch daily. busPIRone 2019-09- No [id number] 20mg Take 2 U nivers 10 mg 2-28 06-15 tablets by ity of tablet 00:00: 00:00 mouth 2 [place] 00 :00 (two) Medical times Branch daily. busPIRone 2019-09- No [id number] 20mg Take 2 U nivers 10 mg 2-28 06-15 tablets by ity of tablet 00:00: 00:00 mouth 2 [place] 00 :00 (two) Medical times Branch daily. metFORMIN 2019-09- No [id number] 500mg Take 1 [facility] 500 mg 2-10 05-05 tablet by ity of tablet 00:00: 00:00 mouth 2 [place] 00 :00 (two) Medical times Branch daily with meals. metFORMIN 2019-09- No [id number] 500mg Take 1 [facility] 500 mg 2-10 05-05 tablet by ity of tablet 00:00: 00:00 mouth 2 [place] 00 :00 (two) Medical times Branch daily with meals. metFORMIN 2019-09- No [id number] 500mg Take 1 [facility] 500 mg 2-10 05-05 tablet by ity of tablet 00:00: 00:00 mouth 2 [place] 00 :00 (two) Medical times Branch daily with meals. metFORMIN 2019-09- No [id number] 500mg Take 1 [facility] 500 mg 2-10 05-05 tablet by ity of tablet 00:00: 00:00 mouth 2 [place] 00 :00 (two) Medical times Branch daily with meals. metFORMIN 2019-09- No [id number] 500mg Take 1 [facility] 500 mg 2-10 05-05 tablet by ity of tablet 00:00: 00:00 mouth 2 [place] 00 :00 (two) Medical times Branch daily with meals. metFORMIN 2019-09- No [id number] 500mg Take 1 [facility] 500 mg 2-10 05-05 tablet by ity of tablet 00:00: 00:00 mouth 2 [place] 00 :00 (two) Medical times Branch daily with meals. metFORMIN 2019-09- No [id number] 500mg Take 1 [facility] 500 mg 2-10 05-05 tablet by ity of tablet 00:00: 00:00 mouth 2 [place] 00 :00 (two) Medical times Branch daily with meals. AMITRIPTYLI 2019-09- No [id number] TAKE 1 [facility] NE 50 mg 2-04 02-12 TABLET BY ity o f tablet 00:00: 00:00 MOUTH AT [place] 00 :00 BEDTIME Medical Branch AMITRIPTYLI 2019-09- No [id number] TAKE 1 [facility] NE 50 mg 2-04 02-12 TABLET BY ity o f tablet 00:00: 00:00 MOUTH AT [place] 00 :00 BEDTIME Medical Branch AMITRIPTYLI 2019-09- No [id number] TAKE 1 [facility] NE 50 mg 10-30 TABLET BY ity o f tablet 00:00: 00:00 MOUTH AT [place] 00 :00 BEDTIME Medical Chromo AMITRIPTYLI 2019-09- No [id number] TAKE 1 [facility] NE 50 mg 211-07 TABLET BY ity o f tablet 00:00: 00:00 MOUTH AT [place] 00 :00 BEDTIME Medical Branch econazole 2019-09- No Apply to Uni vers nitrate 1 % 10-25 area(s) 2 it y of cream 00:00: 00:00 (two) [place] 00 :00 times Medical daily. Branch econazole 2019-09- No Apply to Uni vers nitrate 1 % 10-25 area(s) 2 it y of cream 00:00: 00:00 (two) [place] 00 :00 times Medical daily. Branch econazole 2019-09- No Apply to Uni vers nitrate 1 % 10-25 area(s) 2 it y of cream 00:00: 00:00 (two) [place] 00 :00 times Medical daily. Branch econazole 2019-09- No Apply to Uni vers nitrate 1 % 10-25 area(s) 2 it y of cream 00:00: 00:00 (two) [place] 00 :00 times Medical daily. Chromo econazole 2019-09- No Apply to Uni vers nitrate 1 % 10-25 area(s) 2 it y of cream 00:00: 00:00 (two) [place] 00 :00 times Medical daily. Branch econazole 2019-09- No Apply to Uni vers nitrate 1 % 30 08-04 area(s) 2 it y of cream 00:00: 00:00 (two) [place] 00 :00 times Medical daily. Branch econazole 2019-09- No Apply to [facility] vers nitrate 1 % 30 08-04 area(s) 2 it y of cream 00:00: 00:00 (two) [place] 00 :00 times Medical daily. Branch econazole 2019-09- No Apply to [facility] vers nitrate 1 % 30 08-04 area(s) 2 it y of cream 00:00: 00:00 (two) [place] 00 :00 times Medical daily. Branch econazole 2019-09- No Apply to Uni vers nitrate 1 % 10-25 area(s) 2 it y of cream 00:00: 00:00 (two) [place] 00 :00 times Medical daily. Branch econazole 2019-09- No Apply to Uni vers nitrate 1 % 10-25 area(s) 2 it y of cream 00:00: 00:00 (two) [place] 00 :00 times Medical daily. Branch econazole 2019-09- No Apply to Uni vers nitrate 1 % 10-25 area(s) 2 it y of cream 00:00: 00:00 (two) [place] 00 :00 times Medical daily. Branch econazole 2019-09- No Apply to Uni vers nitrate 1 % 10-25 area(s) 2 it y of cream 00:00: 00:00 (two) [place] 00 :00 times Medical daily. Branch econazole 2019-09- No Apply to Uni vers nitrate 1 % 10-25 area(s) 2 it y of cream 00:00: 00:00 (two) [place] 00 :00 times Medical daily. Branch econazole 2019-09- No Apply to [facility] vers nitrate 1 % 10-25 area(s) 2 it y of cream 00:00: 00:00 (two) [place] 00 :00 times Medical daily. Branch econazole 2019-09- No Apply to [facility] vers nitrate 1 % 10-25 area(s) 2 it y of cream 00:00: 00:00 (two) [place] 00 :00 times Medical daily. Branch proMETHazin 2019- Yes TAKE 1 Univ ers e 25 mg 0-22 TABLET BY ity of tablet 00:00: MOUTH EVERY 6 Medical HOURS Branch NEEDED FOR NAUSEA proMETHazin 2019-09 Yes TAKE 1 Univ ers e 25 mg 0-22 TABLET BY ity of tablet 00:00: MOUTH EVERY 6 Medical HOURS Branch NEEDED FOR NAUSEA proMETHazin 2019- Yes TAKE 1 [facility] ers e 25 mg 0-22 TABLET BY ity of tablet 00:00: MOUTH EVERY 6 Medical HOURS Branch NEEDED FOR NAUSEA proMETHazin 2019- Yes TAKE 1 Univ ers e 25 mg 0-22 TABLET BY ity of tablet 00:00: MOUTH [place] 00 EVERY 6 Medical HOURS Branch NEEDED FOR NAUSEA proMETHazin 2019-09 Yes TAKE 1 Univ ers e 25 mg 0-22 TABLET BY ity of tablet 00:00: [facility] 00 EVERY 6 Medical HOURS Branch NEEDED [...] TABLET BY ity of tablet 00:00: 00:00 [facility] [place] 00 :00 EVERY 6 Medical HOURS Branch NEEDED FOR NAUSEA proMETHazin 2019-09- No TAKE 1 Uni vers e 25 mg 0-22 06-13 TABLET BY ity of tablet 00:00: 00:00 MOUTH [place] 00 :00 EVERY 6 Medical HOURS Branch NEEDED FOR NAUSEA proMETHazin 2019-09- No TAKE 1 Uni vers e 25 mg 0-22 06-13 TABLET BY ity of tablet 00:00: 00:00 [facility] [place] 00 :00 EVERY 6 Medical HOURS Branch NEEDED FOR NAUSEA proMETHazin 2019-09- No TAKE 1 Uni vers e 25 mg 0-22 06-13 TABLET BY ity of tablet 00:00: 00:00 [facility] [place] 00 :00 EVERY 6 Medical HOURS [...] BY ity of tablet 00:00: 00:00 MOUTH [place] 00 :00 EVERY 6 Medical HOURS Branch NEEDED FOR NAUSEA proMETHazin 2019-09- No TAKE 1 Uni vers e 25 mg 0-22 06-13 TABLET BY ity of tablet 00:00: 00:00 MOUTH [place] 00 :00 EVERY 6 Medical HOURS Branch NEEDED FOR NAUSEA proMETHazin 2019-09- No TAKE 1 [facility] vers e 25 mg 0-22 06-13 TABLET BY ity of tablet 00:00: 00:00 MOUTH [place] 00 :00 EVERY 6 Medical HOURS Branch NEEDED FOR NAUSEA proMETHazin 2019-09- No TAKE 1 [facility] vers e 25 mg 0-22 06-13 TABLET BY ity of tablet 00:00: 00:00 MOUTH [place] 00 :00 EVERY 6 Medical HOURS Branch NEEDED FOR NAUSEA omeprazole 2019-09- No 20mg Take 20 mg [facility] 20 mg 008-26 by mouth ity of capsule 00:00: 00:00 daily. [place] 00 :00 Medical Branch omeprazole 2019-09- No 20mg Take 20 mg [facility] 20 mg 008-26 by mouth ity of capsule 00:00: 00:00 daily. [place] 00 :00 Medical Branch omeprazole 2019-09- No 20mg Take 20 mg [facility] 20 mg 008-26 by mouth ity of capsule 00:00: 00:00 daily. [place] 00 :00 Medical Branch omeprazole 2019-09- No 20mg Take 20 mg [facility] 20 mg 008-26 by mouth ity of capsule 00:00: 00:00 daily. [place] 00 :00 Medical Branch omeprazole 2019-2020- No 20mg Take 20 mg [facility] 20 mg 008-26 by mouth ity of capsule 00:00: 00:00 daily. [place] 00 :00 Medical Chromo omeprazole 2019-09- No 20mg Take 20 mg [facility] 20 mg 08-26 by mouth ity of capsule 00:00: 00:00 daily. [place] 00 :00 Medical Branch omeprazole 2019-2020- No 20mg Take 20 mg [facility] 20 mg 08-26 by mouth ity of capsule 00:00: 00:00 daily. [place] 00 :00 Medical Branch omeprazole 2019-2020- No 20mg Take 20 mg [facility] 20 mg 08-26 by mouth ity of capsule 00:00: 00:00 daily. [place] 00 :00 Medical Branch omeprazole 2019-2020- No 20mg Take 20 mg [facility] 20 mg 08-26 by mouth ity of capsule 00:00: 00:00 daily. [place] 00 :00 Medical Branch omeprazole 2019-2020- No 20mg Take 20 mg [facility] 20 mg 08-26 by mouth ity of capsule 00:00: 00:00 daily. [place] 00 :00 Medical Branch omeprazole 2019-2020- No 20mg Take 20 mg [facility] 20 mg 08-26 by mouth ity of capsule 00:00: 00:00 daily. [place] 00 :00 Medical Branch omeprazole 2019-2020- No 20mg Take 20 mg [facility] 20 mg 08-26 by mouth ity of capsule 00:00: 00:00 daily. [place] 00 :00 Medical Branch omeprazole 2019-2020- No 20mg Take 20 mg [facility] 20 mg 08-26 by mouth ity of capsule 00:00: 00:00 daily. [place] 00 :00 Medical Branch omeprazole 2019-2020- No 20mg Take 20 mg [facility] 20 mg 08-26 by mouth ity of capsule 00:00: 00:00 daily. [place] 00 :00 [facility] omeprazole 2019-2020- No 20mg Take 20 mg [facility] 20 mg 08-26 by mouth ity of capsule 00:00: 00:00 daily. [place] 00 :00 [facility] omeprazole 2019-1- No 20mg Take 20 mg [facility] 20 mg 08-26 by mouth ity of capsule 00:00: 00:00 daily. [place] 00 :00 Medical Branch CARTIA XT 2019-2020- No TAKE 1 [facility] rs 120 mg 24 03-05 CAPSULE BY ity of hr capsule 00:00: 00:00 MOUTH [place] 00 :00 TWICE Medical DAILY FOR Branch 90 DAYS CARTIA XT 2019-09- No TAKE 1 [facility] rs 120 mg 24 0-12 03-05 CAPSULE BY ity of hr capsule 00:00: 00:00 MOUTH [place] 00 :00 TWICE Medical DAILY FOR Branch 90 DAYS CARTIA XT 2019-09- No TAKE 1 [facility] rs 120 mg 24 0-12 03-05 CAPSULE BY ity of hr capsule 00:00: 00:00 MOUTH [place] 00 :00 TWICE Medical DAILY FOR Branch 90 DAYS CARTIA XT 2019-09- No TAKE 1 [facility] rs 120 mg 24 0-12 03-05 CAPSULE BY ity of hr capsule 00:00: 00:00 MOUTH [place] 00 :00 TWICE Medical DAILY FOR Branch 90 DAYS CARTIA XT 2019-09- No TAKE 1 [facility] rs 120 mg 24 0-12 03-05 CAPSULE BY ity of hr capsule 00:00: 00:00 MOUTH [place] 00 :00 TWICE Medical DAILY FOR Branch 90 DAYS CARTIA XT 2019-09- No TAKE 1 [facility] rs 120 mg 24 0-12 03-05 CAPSULE BY ity of hr capsule 00:00: 00:00 MOUTH [place] 00 :00 TWICE Medical DAILY FOR Branch 90 DAYS CARTIA XT 2019-09- No TAKE 1 [facility] rs 120 mg 24 0-12 03-05 CAPSULE BY ity of hr capsule 00:00: 00:00 MOUTH [place] 00 :00 TWICE Medical DAILY FOR Branch 90 DAYS CYANOCOBALA 2020- No [id number] INJECT 1 [facility] MIN 1,000 8-31 06-01 ML (CC) ity of mcg/mL 00:00: 00:[place] 00 :00 LARLY Medical EVERY TWO Branch WEEKS ( INDICATION S B12 DEFICIENCY ) CYANOCOBALA 2020- No [id number] INJECT 1 [facility] MIN 1,000 8-31 06-01 ML (CC) ity of mcg/mL 00:00: 00:[place]CU [place] 00 :00 LARLY Medical EVERY TWO Branch WEEKS ( INDICATION S B12 DEFICIENCY ) CYANOCOBALA 2020- No [id number] INJECT 1 [facility] MIN 1,000 8-31 06-01 ML (CC) ity of mcg/mL 00:00: 00:[place]AM[place]CU [place] 00 :00 LARLY Medical EVERY TWO Branch WEEKS ( INDICATION S B12 DEFICIENCY ) CYANOCOBALA 2020- No [id number] INJECT 1 [facility] MIN 1,000 8-31 06-01 ML (CC) ity of mcg/mL 00:00: 00:[place]AM[place]CU [place] 00 :00 LARLY Medical EVERY TWO Branch WEEKS ( INDICATION S B12 DEFICIENCY ) CYANOCOBALA 2020- No [id number] INJECT 1 [facility] MIN 1,000 8-31 06-01 ML (CC) ity of mcg/mL 00:00: 00:[place]AMUSCU [place] injection 00 :00 LARLY Medical EVERY TWO Branch WEEKS ( INDICATION S B12 DEFICIENCY ) CYANOCOBALA 2020- No [id number] INJECT 1 [facility] MIN 1,000 8-31 06-01 ML (CC) ity of mcg/mL 00:00: 00:[place]AMUSCU [place] injection 00 :00 LARLY Medical EVERY TWO Branch WEEKS ( INDICATION S B12 DEFICIENCY ) CYANOCOBALA 2020- No [id number] INJECT 1 [facility] MIN 1,000 8-31 06-01 ML (CC) ity of mcg/mL 00:00: 00:[place]AMUSCU [place] injection 00 :00 LARLY Medical EVERY TWO Branch WEEKS ( INDICATION S B12 DEFICIENCY ) CYANOCOBALA 2020- No [id number] INJECT 1 [facility] MIN 1,000 8-31 06-01 ML (CC) ity of mcg/mL 00:00: 00:[place]TRAMUSCU [place] injection 00 :00 LARLY Medical EVERY TWO Branch WEEKS ( INDICATION S B12 DEFICIENCY ) CYANOCOBALA 2020- No [id number] INJECT 1 [facility] MIN 1,000 8-31 06-01 ML (CC) ity of mcg/mL 00:00: 00:[place]TRAMUSCU [place] injection 00 :00 LARLY Medical EVERY TWO Branch WEEKS ( INDICATION S B12 DEFICIENCY ) pregabalin 2020- No [id number] 150mg Take 1 [facility] 150 mg 8-23 11-12 capsule by ity of capsule 00:00: 00:00 mouth 3 [place] 00 :00 (three) Medical times Branch daily. pregabalin 2020- No [id number] 150mg Take 1 [facility] 150 mg 8-28 -12 capsule by ity of capsule 00:00: 00:00 mouth 3 [place] 00 :00 (three) Medical times Branch daily. pregabalin 2020- No [id number] 150mg Take 1 [facility] 150 mg 8-28 -12 capsule by ity of capsule 00:00: 00:00 mouth 3 [place] 00 :00 (three) Medical times Branch daily. pregabalin No [id number] 150mg Take 1 [facility] 150 mg 8-28 -12 capsule by ity of capsule 00:00: 00:00 mouth 3 [place] 00 :00 (three) Medical times Branch daily. pregabalin No [id number] 150mg Take 1 [facility] 150 mg 8-23 11-12 capsule by ity of capsule 00:00: 00:00 mouth 3 [place] 00 :00 (three) Medical times Branch daily. cyclobenzap 2020- No [id number] TAKE 1 [facility] rine 5 mg 7-16 - TABLET BY ity of tablet 00:00: 00:00 MOUTH [place] 00 :00 EVERY 8 Medical HOURS Branch NEEDED citalopram No [id number] 40mg Take 1 [facility] 40 mg 6-15 12-28 tablet by ity of tablet 00:00: 00:00 mouth [place] 00 :00 daily. Medical Branch busPIRone No [id number] 20mg Take 2 U n[facility] 10 mg 6-15 12-18 tablets by ity of tablet 00:00: 00:00 mouth 2 [place] 00 :00 (two) Medical times Branch daily. losartan 50 2020- No [id number] 50mg Take 1 [facility] mg tablet 02-24 tablet by ity of 00:00: 00:00 mouth 2 [place] 00 :00 (two) Medical times Branch daily. losartan 50 2020- No [id number] 50mg Take 1 [facility] mg tablet 02-24- tablet by ity of 00:00: 00:00 mouth 2 [place] 00 :00 (two) Medical times Branch daily. losartan 50 No [id number] 50mg Take 1 [facility] mg tablet 02-24 tablet by ity of 00:00: 00:00 mouth 2 [place] 00 :00 (two) Medical times Branch daily. losartan 50 2020- No [id number] 50mg Take 1 [facility] mg tablet 02-24 tablet by ity of 00:00: 00:00 mouth 2 [place] 00 :00 (two) Medical times Branch daily. losartan 50 2020- No [id number] 50mg Take 1 [facility] mg tablet 02-24 tablet by ity of 00:00: 00:00 mouth 2 [place] 00 :00 (two) Medical times Branch daily. losartan 50 2020- No [id number] 50mg Take 1 [facility] mg tablet 02-24 tablet by ity of 00:00: 00:00 mouth 2 [place] 00 :00 (two) Medical times Branch daily. losartan 50 2020- No [id number] 50mg Take 1 [facility] mg tablet 02-24 tablet by ity of 00:00: 00:00 mouth 2 [place] 00 :00 (two) Medical times Branch daily. albuterol 2020- No 2{puff} Inhale 2 Univers (PROAIR 4-17 11-09 Puffs ity of HFA) 90 00:00: 00:00 every 6 [place] mcg/actuati 00 :00 (six) Medical on inhaler hours as Branc h needed for Wheezing or Shortness of Breath. albuterol 2020- No 2{puff} Inhale 2 [facility] (PROAIR 4-17 11-09 Puffs ity of HFA) 90 00:00: 00:00 every 6 [place] mcg/actuati 00 :00 (six) Medical on inhaler hours as Branc h needed for Wheezing or Shortness of Breath. albuterol 2020- No 2{puff} Inhale 2 [facility] (PROAIR 4-17 11-09 Puffs ity of HFA) 90 00:00: 00:00 every 6 [place] mcg/actuati 00 :00 (six) Medical on inhaler hours as Branc h needed for Wheezing or Shortness of Breath. albuterol 2020- No 2{puff} Inhale 2 [facility] (PROAIR 4-17 11-09 Puffs ity of HFA) 90 00:00: 00:00 every 6 [place] mcg/actuati 00 :00 (six) Medical on inhaler hours as Branc h needed for Wheezing or Shortness of Breath. albuterol 2020- No 2{puff} Inhale 2 [facility] (PROAIR 4-17 11-09 Puffs ity of HFA) 90 00:00: 00:00 every 6 [place] mcg/actuati 00 :00 (six) Medical on inhaler hours as Branc h needed for Wheezing or Shortness of Breath. albuterol 2020- No 2{puff} Inhale 2 [facility] (PROAIR 4-17 11-09 Puffs ity of HFA) 90 00:00: 00:00 every 6 [place] mcg/actuati 00 :00 (six) Medical on inhaler hours as Branc h needed for Wheezing or Shortness of Breath. albuterol 2020- No 2{puff} Inhale 2 [facility] (PROAIR 4-17 11-09 Puffs ity of HFA) 90 00:00: 00:00 every 6 [place] mcg/actuati 00 :00 (six) Medical on inhaler hours as Branc h needed for Wheezing or Shortness of Breath. albuterol 2020- No 2{puff} Inhale 2 [facility] (PROAIR 4-17 11-09 Puffs ity of HFA) 90 00:00: 00:00 every 6 [place] mcg/actuati 00 :00 (six) Medical on inhaler hours as Branc h needed for Wheezing or Shortness of Breath. albuterol 2020- No 2{puff} Inhale 2 [facility] (PROAIR 4-17 11-09 Puffs ity of HFA) 90 00:00: 00:00 every 6 [place] mcg/actuati 00 :00 (six) Medical on inhaler hours as Branc h needed for Wheezing or Shortness of Breath. albuterol 2020- No 2{puff} Inhale 2 Univers (PROAIR 4-17 11-09 Puffs ity of HFA) 90 00:00: 00:00 every 6 [place] mcg/actuati 00 :00 (six) Medical on inhaler hours as Branc h needed for Wheezing or Shortness of Breath. albuterol 2020- No 2{puff} Inhale 2 Univers (PROAIR 4-17 11-09 Puffs ity of HFA) 90 00:00: 00:00 every 6 [place] mcg/actuati 00 :00 (six) Medical on inhaler hours as Branc h needed for Wheezing or Shortness of Breath. albuterol 2019-0 2020- No 2{puff} Inhale 2 [facility] (PROAIR 4-17 11-09 Puffs ity of HFA) 90 00:00: 00:00 every 6 [place] mcg/actuati 00 :00 (six) Medical on inhaler hours as Branc h needed for Wheezing or Shortness of Breath. albuterol 2019-0 2020- No 2{puff} Inhale 2 Univers (PROAIR 4-17 11-09 Puffs ity of HFA) 90 00:00: 00:00 every 6 [place] mcg/actuati 00 :00 (six) Medical on inhaler hours as Branc h needed for Wheezing or Shortness of Breath. albuterol 2019-2020- No 2{puff} Inhale 2 Univers (PROAIR 4-17 11-09 Puffs ity of HFA) 90 00:00: 00:00 every 6 [place] mcg/actuati 00 :00 (six) Medical on inhaler hours as Branc h needed for Wheezing or Shortness of Breath. albuterol 2019-2020- No 2{puff} Inhale 2 Univers (PROAIR 4-17 11-09 Puffs ity of HFA) 90 00:00: 00:00 every 6 [place] mcg/actuati 00 :00 (six) Medical on inhaler hours as Branc h needed for Wheezing or Shortness of Breath. fluticasone 2019-2020- No 2{puff} Inhale 2 [facility] propionate 4-17 02-25 Puffs ity of (FLOVENT 00:00: 00:00 every 12 [place] HFA) 110 00 :00 (twelve) Medical mcg/actuati hours. Branch on inhaler fluticasone 2019-2020- No 2{puff} Inhale 2 [facility] propionate 4-17 02-25 Puffs ity of (FLOVENT 00:00: 00:00 every 12 [place] HFA) 110 00 :00 (twelve) Medical mcg/actuati hours. Branch on inhaler fluticasone 2019-0 2020- No 2{puff} Inhale 2 [facility] propionate 4-17 02-25 Puffs ity of (FLOVENT 00:00: 00:00 every 12 [place] HFA) 110 00 :00 (twelve) Medical mcg/actuati hours. Branch on inhaler fluticasone 2020- No 2{puff} Inhale 2 [facility] propionate 4-17 02-25 Puffs ity of (FLOVENT 00:00: 00:00 every 12 [place] HFA) 110 00 :00 (twelve) Medical mcg/actuati hours. Branch on inhaler fluticasone 2020- No 2{puff} Inhale 2 [facility] propionate 4-17 02-25 Puffs ity of (FLOVENT 00:00: 00:00 every 12 [place] HFA) 110 00 :00 (twelve) Medical mcg/actuati hours. Branch on inhaler fluticasone 2020- No 2{puff} Inhale 2 [facility] propionate 4-17 02-25 Puffs ity of (FLOVENT 00:00: 00:00 every 12 [place] HFA) 110 00 :00 (twelve) Medical mcg/actuati hours. Branch on inhaler fluticasone 2020- No 2{puff} Inhale 2 [facility] propionate 4-17 02-25 Puffs ity of (FLOVENT 00:00: 00:00 every 12 [place] HFA) 110 00 :00 (twelve) Medical mcg/actuati hours. Branch on inhaler levothyroxi 2020- No [id number] TAKE 1 [facility] ne 50 mcg 16 - TABLET BY ity of tablet 00:00: 00:00 MOUTH ONCE [place] 00 :00 DAILY IN [facility] MORNING levothyroxi 2020- No [id number] TAKE 1 [facility] ne 50 mcg 4-16 - TABLET BY ity of tablet 00:00: 00:00 MOUTH ONCE [place] 00 :00 DAILY IN [facility] MORNING levothyroxi 2020- No [id number] TAKE 1 [facility] ne 50 mcg 4-16 - TABLET BY ity of tablet 00:00: 00:00 MOUTH ONCE [place] 00 :00 DAILY IN [facility] MORNING levothyroxi 2020- No [id number] TAKE 1 [facility] ne 50 mcg 4-16 - TABLET BY ity of tablet 00:00: 00:00 MOUTH ONCE [place] 00 :00 DAILY IN [facility] MORNING levothyroxi 2020- No [id number] TAKE 1 [facility] ne 50 mcg 4-16 - TABLET BY ity of tablet 00:00: 00:00 M[place]TH ONCE [place] 00 :00 DAILY IN [facility] levothyroxi 2020- No [id number] TAKE 1 [facility] ne 50 mcg 4-16 - TABLET BY ity of tablet 00:00: 00:00 MOUTH ONCE [place] 00 :00 DAILY IN [facility] levothyroxi 2020- No [id number] TAKE 1 [facility] ne 50 mcg 4-16 - TABLET BY ity of tablet 00:00: 00:00 MOUTH ONCE [place] 00 :00 DAILY IN [facility] levothyroxi 2020- No [id number] TAKE 1 [facility] ne 50 mcg -11 03- TABLET BY ity of tablet 00:00: 00:00 MOUTH ONCE [place] 00 :00 DAILY IN [facility] levothyroxi 2020- No [id number] TAKE 1 [facility] ne 50 mcg -16 - TABLET BY ity of tablet 00:00: 00:00 MOUTH ONCE [place] 00 :00 DAILY IN [facility] rosuvastati 2020- No [id number] 10mg Take 1 Univers n 10 mg 4-16 04-28 tablet by ity of tablet 00:00: 00:00 mouth at [place] 00 :00 bedtime. [facility] rosuvastati 2020- No [id number] 10mg Take 1 Univers n 10 mg 4-16 04-28 tablet by ity of tablet 00:00: 00:00 mouth at [place] 00 :00 bedtime. [facility] rosuvastati 2020- No [id number] 10mg Take 1 Univers n 10 mg 4-16 04-28 tablet by ity of tablet 00:00: 00:00 mouth at [place] 00 :00 bedtime. [facility] rosuvastati 2020- No [id number] 10mg Take 1 Univers n 10 mg 4-16 04-28 tablet by ity of tablet 00:00: 00:00 mouth at [place] 00 :00 bedtime. Medical Branch rosuvastati 2020- No [id number] 10mg Take 1 [facility] n 10 mg 4-16 04-28 tablet by ity of tablet 00:00: 00:00 mouth at [place] 00 :00 bedtime. Medical Branch rosuvastati No [id number] 10mg Take 1 [facility] n 10 mg 4-16 04-28 tablet by ity of tablet 00:00: 00:00 mouth at [place] 00 :00 bedtime. Medical Branch rosuvastati No [id number] 10mg Take 1 [facility] n 10 mg 4-16 04-28 tablet by ity of tablet 00:00: 00:00 mouth at [place] 00 :00 bedtime. Medical Branch amitriptyli 2019- No [id number] 100mg Take 2 [facility] ne 50 mg 4-10 12-04 tablets by ity of tablet 00:00: 00:00 mouth at [place] 00 :00 bedtime. Medical Branch fluticasone No [id number] USE 2 [facility] propionate 7- 02-25 SPRAY(S) ity of 50 00:00: 00:00 IN EACH [place] mcg/actuati 00 :00 NOSTRIL Medic al on nasal ONCE DAILY Branc h spray fluticasone No [id number] USE 2 [facility] propionate 7- 02-25 SPRAY(S) ity of 50 00:00: 00:00 IN EACH [place] mcg/actuati 00 :00 NOSTRIL Medic al on nasal ONCE DAILY Branc h spray fluticasone 2020- No [id number] USE 2 [facility] propionate 7- 02-25 SPRAY(S) ity of 50 00:00: 00:00 IN EACH [place] mcg/actuati 00 :00 NOSTRIL Medic al on nasal ONCE DAILY Branc h spray fluticasone No [id number] USE 2 [facility] propionate 7- 02-25 SPRAY(S) ity of 50 00:00: 00:00 IN EACH [place] mcg/actuati 00 :00 NOSTRIL Medic al on nasal ONCE DAILY Branc h spray fluticasone No [id number] USE 2 [facility] propionate 7- 02-25 SPRAY(S) ity of 50 00:00: 00:00 IN EACH [place] mcg/actuati 00 :00 NOSTRIL Medic al on nasal ONCE DAILY Branc h spray fluticasone 1- No [id number] USE 2 [facility] propionate 03-2625 SPRAY(S) ity of 50 00:00: 00:00 IN EACH [place] mcg/actuati 00 :00 NOSTRIL Medic al on nasal ONCE DAILY Branc h spray fluticasone 2020- No [id number] USE 2 [facility] propionate 03-26 SPRAY(S) ity of 50 00:00: 00:00 IN EACH [place] mcg/actuati 00 :00 NOSTRIL Medic al on nasal ONCE DAILY Branc h spray Ginkgo [id number] Yes [facility] [place] 120 1-16 ity of mg Tab 00:00: [place] [facility] Ginkgo 2019-0 Yes [facility] [place] 120 1-16 ity of mg Tab 00:00: [place] [facility] Ginkgo 2019-0 Yes [facility] [place] 120 1-16 ity of mg Tab 00:00: [place] 00 Medical Branch Ginkgo 2019-0 Yes [facility] [place] 120 1-16 ity of mg Tab 00:00: [place] [address] Medical Branch Ginkgo 2019-0 Yes [facility] [place] [...] 1-16 ity of mg Tab 00:00: [place] [facility] Ginkgo 2019-0 Yes [facility] [place] 120 1-16 ity of mg Tab 00:00: [place] [address] Medical Branch Ginkgo 2019-0 Yes [facility] [place] [...] -24 ity of mg Tab 00:00: 00:00 [place] 00 :00 Medical Branch Ginkgo 2019-0 2023- No [facility] [place] 120 1-16 -24 ity of mg Tab 00:00: 00:00 [place] 00 :00 Medical Branch Ginkgo 2019-0 2023- No [facility] [place] 120 1-16 -24 ity of mg Tab 00:00: 00:00 [place] 00 :00 Medical Branch Ginkgo 2019-0 2023- No [facility] [place] 120 10-11 ity of mg Tab 00:00: 00:00 [place] 00 :00 Medical Branch Ginkgo 2019-0 2023- No [facility] [place] 120 10-11 ity of mg Tab 00:00: 00:00 [place] 00 :00 Medical Branch Ginkgo 2019-0 2023- No [facility] [place] 120 10-11 ity of mg Tab 00:00: 00:00 [place] 00 :00 Medical Branch Ginkgo 2019-0 2023- No [facility] [place] 120 10-11 ity of mg Tab 00:00: 00:00 [place] 00 :00 Medical Branch Ginkgo 2019-0 2023- No [facility] [place] 120 10-11 ity of mg Tab 00:00: 00:00 [place] 00 :00 Medical Branch Ginkgo 2019-0 2023- No [facility] [place] 120 10-11 ity of mg Tab 00:00: 00:00 [place] 00 :00 Medical Branch Ginkgo 2019-0 2023- No [facility] [place] 120 10-11 ity of mg Tab 00:00: 00:00 [place] 00 :00 Medical Branch Ginkgo 2019-0 2023- No [facility] [place] 120 10-11 ity of mg Tab 00:00: 00:00 [place] 00 :00 Medical Branch Ginkgo 2019-0 2023- No [facility] [place] 120 10-11 ity of mg Tab 00:00: 00:00 [place] 00 :00 Medical Branch Ginkgo 2019-0 2023- No [facility] [place] 120 10-11 ity of mg Tab 00:00: 00:00 [place] 00 :00 Medical Branch Ginkgo 2019-0 2023- No [facility] [place] 120 10-11 ity of mg Tab 00:00: 00:00 [place] 00 :00 Medical Branch Ginkgo 2019-0 2023- No [facility] [place] 120 10-11 ity of mg Tab 00:00: 00:00 [place] 00 :00 Medical Branch Ginkgo 2019-0 2023- No [facility] [place] 120 10-11 ity of mg Tab 00:00: 00:00 [place] 00 :00 Medical Branch Ginkgo 2019-0 3- No [facility] [place] 120 10-11 ity of [...] [place] 00 :00 Medical Branch FERROUS Yes [id number] TAKE ONE Uni vers SULFATE 325 8-13 TABLET BY ity of mg (65 mg 00:00: MOUTH [place] iron) 00 THREE Medical tablet TIMES Branch DAILY WITH MEALS FERROUS Yes [id number] TAKE ONE Uni vers SULFATE 325 8-13 TABLET BY ity of mg (65 mg 00:00: MOUTH [place] iron) 00 THREE Medical tablet TIMES Branch DAILY WITH MEALS FERROUS Yes [id number] TAKE ONE Uni vers SULFATE 325 8-13 TABLET BY ity of mg (65 mg 00:00: MOUTH [place] iron) 00 THREE Medical tablet TIMES Branch DAILY WITH MEALS FERROUS Yes [id number] TAKE ONE Uni vers SULFATE 325 8-13 TABLET BY ity of mg (65 mg 00:00: MOUTH [place] iron) 00 THREE Medical tablet TIMES Branch DAILY WITH MEALS FERROUS Yes [id number] TAKE ONE Uni vers SULFATE 325 8-13 TABLET BY ity of mg (65 mg 00:00: MOUTH [place] iron) 00 THREE Medical tablet TIMES Branch DAILY WITH MEALS FERROUS Yes [id number] TAKE ONE Uni vers SULFATE 325 8-13 TABLET BY ity of mg (65 mg 00:00: MOUTH [place] iron) 00 THREE Medical tablet TIMES Branch DAILY WITH MEALS FERROUS Yes [id number] TAKE ONE Uni vers SULFATE 325 8-13 TABLET BY ity of mg (65 mg 00:00: MOUTH [place] iron) 00 THREE Medical tablet TIMES Branch DAILY WITH MEALS FERROUS Yes [id number] TAKE ONE Uni vers SULFATE 325 8-13 TABLET BY ity of mg (65 mg 00:00: MOUTH [place] iron) 00 THREE Medical tablet TIMES Branch DAILY WITH MEALS FERROUS Yes [id number] TAKE ONE Uni vers SULFATE 325 8-13 TABLET BY ity of mg (65 mg 00:00: MOUTH [place] iron) 00 THREE Medical tablet TIMES Branch DAILY WITH MEALS FERROUS Yes [id number] TAKE ONE Uni vers SULFATE 325 8-13 TABLET BY ity of mg (65 mg 00:00: MOUTH [place] iron) 00 THREE Medical tablet TIMES Branch DAILY WITH MEALS FERROUS Yes [id number] TAKE ONE Uni vers SULFATE 325 8-13 TABLET BY ity of mg (65 mg 00:00: MOUTH [place] iron) 00 THREE Medical tablet TIMES Branch DAILY WITH MEALS FERROUS Yes [id number] TAKE ONE Uni vers SULFATE 325 8-13 TABLET BY ity of mg (65 mg 00:00: MOUTH [place] iron) 00 THREE Medical tablet TIMES Branch DAILY WITH MEALS FERROUS Yes [id number] TAKE ONE Uni vers SULFATE 325 8-13 TABLET BY ity of mg (65 mg 00:00: MOUTH [place] iron) 00 THREE Medical tablet TIMES Branch DAILY WITH MEALS FERROUS Yes [id number] TAKE ONE [facility] vers SULFATE 325 8-13 TABLET BY ity of mg (65 mg 00:00: MOUTH [place] iron) 00 THREE Medical tablet TIMES Branch DAILY WITH MEALS FERROUS Yes [id number] TAKE ONE [facility] vers SULFATE 325 8-13 TABLET BY ity of mg (65 mg 00:00: MOUTH [place] iron) 00 THREE Medical tablet TIMES Branch DAILY WITH MEALS FERROUS Yes [id number] TAKE ONE [facility] vers SULFATE 325 8-13 TABLET BY ity of mg (65 mg 00:00: MOUTH [place] iron) 00 THREE Medical tablet TIMES Branch DAILY WITH MEALS FERROUS Yes [id number] TAKE ONE [facility] vers SULFATE 325 8-13 TABLET BY ity of mg (65 mg 00:00: MOUTH [place] iron) 00 THREE Medical tablet TIMES Branch DAILY WITH MEALS FERROUS Yes [id number] TAKE ONE [facility] vers SULFATE 325 8-13 TABLET BY ity of mg (65 mg 00:00: MOUTH [place] iron) 00 THREE Medical tablet TIMES Branch DAILY WITH MEALS FERROUS Yes [id number] TAKE ONE Uni vers SULFATE 325 8-13 TABLET BY ity of mg (65 mg 00:00: MOUTH [place] iron) 00 THREE Medical tablet TIMES Branch DAILY WITH MEALS FERROUS Yes [id number] TAKE ONE Uni vers SULFATE 325 8-13 TABLET BY ity of mg (65 mg 00:00: MOUTH [place] iron) 00 THREE Medical tablet TIMES Branch DAILY WITH MEALS FERROUS Yes [id number] TAKE ONE Uni vers SULFATE 325 8-13 TABLET BY ity of mg (65 mg 00:00: MOUTH [place] iron) 00 THREE Medical tablet TIMES Branch DAILY WITH MEALS FERROUS Yes [id number] TAKE ONE Uni vers SULFATE 325 8-13 TABLET BY ity of mg (65 mg 00:00: MOUTH [place] iron) 00 THREE Medical tablet TIMES Branch DAILY WITH MEALS FERROUS Yes [id number] TAKE ONE Uni vers SULFATE 325 8-13 TABLET BY ity of mg (65 mg 00:00: MOUTH [place] iron) 00 THREE Medical tablet TIMES Branch DAILY WITH MEALS FERROUS Yes [id number] TAKE ONE Uni vers SULFATE 325 8-13 TABLET BY ity of mg (65 mg 00:00: MOUTH [place] iron) 00 THREE Medical tablet TIMES Branch DAILY WITH MEALS FERROUS Yes [id number] TAKE ONE Uni vers SULFATE 325 8-13 TABLET BY ity of mg (65 mg 00:00: MOUTH [place] iron) 00 THREE Medical tablet TIMES Branch DAILY WITH MEALS FERROUS Yes [id number] TAKE ONE Uni vers SULFATE 325 8-13 TABLET BY ity of mg (65 mg 00:00: MOUTH [place] iron) 00 THREE Medical tablet TIMES Branch DAILY WITH MEALS FERROUS Yes [id number] TAKE ONE Uni vers SULFATE 325 8-13 TABLET BY ity of mg (65 mg 00:00: MOUTH [place] iron) 00 THREE Medical tablet TIMES Branch DAILY WITH MEALS FERROUS Yes [id number] TAKE ONE Uni vers SULFATE 325 8-13 TABLET BY ity of mg (65 mg 00:00: MOUTH [place] iron) 00 THREE Medical tablet TIMES Branch DAILY WITH MEALS FERROUS Yes [id number] TAKE ONE Uni vers SULFATE 325 8-13 TABLET BY ity of mg (65 mg 00:00: MOUTH [place] iron) 00 THREE Medical tablet TIMES Branch DAILY WITH MEALS FERROUS Yes [id number] TAKE ONE Uni vers SULFATE 325 8-13 TABLET BY ity of mg (65 mg 00:00: MOUTH [place] iron) 00 THREE Medical tablet TIMES Branch DAILY WITH MEALS FERROUS Yes [id number] TAKE ONE Uni vers SULFATE 325 8-13 TABLET BY ity of mg (65 mg 00:00: MOUTH [place] iron) 00 THREE Medical tablet TIMES Branch DAILY WITH MEALS FERROUS Yes [id number] TAKE ONE Uni vers SULFATE 325 8-13 TABLET BY ity of mg (65 mg 00:00: MOUTH [place] iron) 00 THREE Medical tablet TIMES Branch DAILY WITH MEALS FERROUS Yes [id number] TAKE ONE Uni vers SULFATE 325 8-13 TABLET BY ity of mg (65 mg 00:00: MOUTH [place] iron) 00 THREE Medical tablet TIMES Branch DAILY WITH MEALS FERROUS Yes [id number] TAKE ONE Uni vers SULFATE 325 8-13 TABLET BY ity of mg (65 mg 00:00: MOUTH [place] iron) 00 THREE Medical tablet TIMES Branch DAILY WITH MEALS FERROUS Yes [id number] TAKE ONE [facility] vers SULFATE 325 8-13 TABLET BY ity of mg (65 mg 00:00: MOUTH [place] iron) 00 THREE Medical tablet TIMES Branch DAILY WITH MEALS FERROUS Yes [id number] TAKE ONE [facility] vers SULFATE 325 8-13 TABLET BY ity of mg (65 mg 00:00: MOUTH [place] iron) 00 THREE Medical tablet TIMES Branch DAILY WITH MEALS FERROUS Yes [id number] TAKE ONE Uni vers SULFATE 325 8-13 TABLET BY ity of mg (65 mg 00:00: MOUTH [place] iron) 00 THREE Medical tablet TIMES Branch DAILY WITH MEALS FERROUS Yes [id number] TAKE ONE Uni vers SULFATE 325 8-13 TABLET BY ity of mg (65 mg 00:00: MOUTH [place] iron) 00 THREE Medical tablet TIMES Branch DAILY WITH MEALS FERROUS Yes [id number] TAKE ONE [facility] vers SULFATE 325 8-13 TABLET BY ity of mg (65 mg 00:00: MOUTH [place] iron) 00 THREE Medical tablet TIMES Branch DAILY WITH MEALS FERROUS Yes [id number] TAKE ONE Uni vers SULFATE 325 8-13 TABLET BY ity of mg (65 mg 00:00: MOUTH [place] iron) 00 THREE Medical tablet TIMES Branch DAILY WITH MEALS FERROUS Yes [id number] TAKE ONE Uni vers SULFATE 325 8-13 TABLET BY ity of mg (65 mg 00:00: MOUTH [place] iron) 00 THREE Medical tablet TIMES Branch DAILY WITH MEALS FERROUS Yes [id number] TAKE ONE Uni vers SULFATE 325 8-13 TABLET BY ity of mg (65 mg 00:00: MOUTH [place] iron) 00 THREE Medical tablet TIMES Branch DAILY WITH MEALS FERROUS Yes [id number] TAKE ONE [facility] vers SULFATE 325 8-13 TABLET BY ity of mg (65 mg 00:00: MOUTH [place] iron) 00 THREE Medical tablet TIMES Branch DAILY WITH MEALS FERROUS Yes [id number] TAKE ONE [facility] vers SULFATE 325 8-13 TABLET BY ity of mg (65 mg 00:00: MOUTH [place] iron) 00 THREE Medical tablet TIMES Branch DAILY WITH MEALS FERROUS Yes [id number] TAKE ONE [facility] vers SULFATE 325 8-13 TABLET BY ity of mg (65 mg 00:00: MOUTH [place] iron) 00 THREE Medical tablet TIMES Branch DAILY WITH MEALS FERROUS Yes [id number] TAKE ONE [facility] SULFATE 325 8-13 TABLET BY [facility] of mg (65 mg 00:00: MOUTH [place] [facility]) 00 THREE Medical tablet TIMES Branch DAILY WITH MEALS FERROUS Yes [id number] TAKE ONE [facility] SULFATE 325 8-13 TABLET BY [facility] of mg (65 mg 00:00: MOUTH [place] [facility]) 00 THREE Medical tablet TIMES Branch DAILY WITH MEALS FERROUS Yes [id number] TAKE ONE [facility] SULFATE 325 8-13 TABLET BY [facility] of mg (65 mg 00:00: MOUTH [place] [facility]) 00 THREE Medical tablet TIMES Branch DAILY WITH MEALS FERROUS Yes [id number] TAKE ONE [facility] SULFATE 325 8-13 TABLET BY [facility] of mg (65 mg 00:00: MOUTH [place] [facility]) 00 THREE Medical tablet TIMES Branch DAILY WITH MEALS FERROUS Yes [id number] TAKE ONE [facility] SULFATE 325 8-13 TABLET BY [facility] of mg (65 mg 00:00: MOUTH [place] [facility]) 00 THREE Medical tablet TIMES Branch DAILY WITH MEALS FERROUS Yes [id number] TAKE ONE [facility] SULFATE 325 8-13 TABLET BY [facility] of mg (65 mg 00:00: MOUTH [place] [facility]) 00 THREE Medical tablet TIMES Branch DAILY WITH MEALS FERROUS Yes [id number] TAKE ONE [facility] SULFATE 325 8-13 TABLET BY [facility] of mg (65 mg 00:00: MOUTH [place] [facility]) 00 THREE Medical tablet TIMES Branch DAILY WITH MEALS FERROUS Yes [id number] TAKE ONE [facility] SULFATE 325 8-13 TABLET BY [facility] of mg (65 mg 00:00: MOUTH [place] [facility]) 00 THREE Medical tablet TIMES Branch DAILY WITH MEALS FERROUS Yes [id number] TAKE ONE [facility] SULFATE 325 8-13 TABLET BY [facility] of mg (65 mg 00:00: MOUTH [place] [facility]) 00 THREE Medical tablet TIMES Branch DAILY WITH MEALS FERROUS Yes [id number] TAKE ONE [facility] SULFATE 325 8-13 TABLET BY [facility] of mg (65 mg 00:00: MOUTH [place] [facility]) 00 THREE Medical tablet TIMES Branch DAILY WITH MEALS FERROUS Yes [id number] TAKE ONE [facility] SULFATE 325 8-13 TABLET BY [facility] of mg (65 mg 00:00: MOUTH [place] [facility]) 00 THREE Medical tablet TIMES Branch DAILY WITH MEALS FERROUS Yes [id number] TAKE ONE [facility] SULFATE 325 8-13 TABLET BY [facility] of mg (65 mg 00:00: MOUTH [place] [facility]) 00 THREE Medical tablet TIMES Branch DAILY WITH MEALS FERROUS Yes [id number] TAKE ONE [facility] SULFATE 325 8-13 TABLET BY [facility] of mg (65 mg 00:00: MOUTH [place] [facility]) 00 THREE Medical tablet TIMES Branch DAILY WITH MEALS FERROUS Yes [id number] TAKE ONE [facility] SULFATE 325 8-13 TABLET BY [facility] of mg (65 mg 00:00: MOUTH [place] [facility]) 00 THREE Medical tablet TIMES Branch DAILY WITH MEALS FERROUS Yes [id number] TAKE ONE [facility] SULFATE 325 8-13 TABLET BY [facility] mg (65 mg 00:00: MOUTH [place] [facility]) 00 THREE Medical tablet TIMES Branch DAILY WITH MEALS FERROUS Yes [id number] TAKE ONE [facility] SULFATE 325 8-13 TABLET BY [facility] of mg (65 mg 00:00: MOUTH [place] [facility]) 00 THREE Medical tablet TIMES Branch DAILY WITH MEALS FERROUS Yes [id number] TAKE ONE [facility] SULFATE 325 8-13 TABLET BY [facility] of mg (65 mg 00:00: MOUTH [place] [facility]) 00 THREE Medical tablet TIMES Branch DAILY WITH MEALS FERROUS Yes [id number] TAKE ONE [facility] SULFATE 325 8-13 TABLET BY [facility] of mg (65 mg 00:00: MOUTH [place] [facility]) 00 THREE Medical tablet TIMES Branch DAILY WITH MEALS FERROUS Yes [id number] TAKE ONE [facility] SULFATE 325 8-13 TABLET BY [facility] of mg (65 mg 00:00: MOUTH [place] [facility]) 00 THREE Medical tablet TIMES Branch DAILY WITH MEALS FERROUS Yes [id number] TAKE ONE [facility] SULFATE 325 8-13 TABLET BY [facility] of mg (65 mg 00:00: MOUTH [place] [facility]) 00 THREE Medical tablet TIMES Branch DAILY WITH MEALS FERROUS Yes [id number] TAKE ONE [facility] SULFATE 325 8-13 TABLET BY [facility] of mg (65 mg 00:00: MOUTH [place] [facility]) 00 THREE Medical tablet TIMES Branch DAILY WITH MEALS FERROUS Yes [id number] TAKE ONE [facility] SULFATE 325 8-13 TABLET BY [facility] of mg (65 mg 00:00: MOUTH [place] [facility]) 00 THREE Medical tablet TIMES Branch DAILY WITH MEALS FERROUS Yes [id number] TAKE ONE [facility] SULFATE 325 8-13 TABLET BY [facility] of mg (65 mg 00:00: MOUTH [place] [facility]) 00 THREE Medical tablet TIMES Branch DAILY WITH MEALS FERROUS Yes [id number] TAKE ONE [facility] SULFATE 325 8-13 TABLET BY [facility] mg (65 mg 00:00: MOUTH [place] [facility]) 00 THREE Medical tablet TIMES Branch DAILY WITH MEALS FERROUS Yes [id number] TAKE ONE [facility] SULFATE 325 8-13 TABLET BY [facility] of mg (65 mg 00:00: MOUTH [place] [facility]) 00 THREE Medical tablet TIMES Branch DAILY WITH MEALS FERROUS Yes [id number] TAKE ONE [facility] SULFATE 325 8-13 TABLET BY [facility] of mg (65 mg 00:00: MOUTH [place] [facility]) 00 THREE Medical tablet TIMES Branch DAILY WITH MEALS FERROUS Yes [id number] TAKE ONE [facility] SULFATE 325 8-13 TABLET BY [facility] of mg (65 mg 00:00: MOUTH [place] [facility]) 00 THREE Medical tablet TIMES Branch DAILY WITH MEALS FERROUS Yes [id number] TAKE ONE [facility] SULFATE 325 8-13 TABLET BY [facility] mg (65 mg 00:00: MOUTH [place] [facility]) 00 THREE Medical tablet TIMES Branch DAILY WITH MEALS FERROUS Yes [id number] TAKE ONE [facility] SULFATE 325 8-13 TABLET BY [facility] mg (65 mg 00:00: MOUTH [place] [facility]) 00 THREE Medical tablet TIMES Branch DAILY WITH MEALS FERROUS Yes [id number] TAKE ONE [facility] SULFATE 325 8-13 TABLET BY [facility] mg (65 mg 00:00: MOUTH [place] [facility]) 00 THREE Medical tablet TIMES Branch DAILY WITH MEALS FERROUS Yes [id number] TAKE ONE [facility] SULFATE 325 8-13 TABLET BY [facility] mg (65 mg 00:00: MOUTH [place] [facility]) 00 THREE Medical tablet TIMES Branch DAILY WITH MEALS FERROUS Yes [id number] TAKE ONE [facility] SULFATE 325 8-13 TABLET BY [facility] mg (65 mg 00:00: MOUTH [place] [facility]) 00 THREE Medical tablet TIMES Branch DAILY WITH MEALS FERROUS No [id number] TAKE ONE [facility] SULFATE 325 8-13 -24 TABLET BY it y of mg (65 mg 00:00: 00:00 MOUTH [place] [facility]) 00 :00 THREE Medical tablet TIMES Branch DAILY WITH MEALS FERROUS No [id number] TAKE ONE [facility] SULFATE 325 8-13 -24 TABLET BY it y of mg (65 mg 00:00: 00:00 MOUTH [place] [facility]) 00 :00 THREE Medical tablet TIMES Branch DAILY WITH MEALS FERROUS No [id number] TAKE ONE [facility] SULFATE 325 8-13 -24 TABLET BY it y of mg (65 mg 00:00: 00:00 MOUTH [place] [facility]) 00 :00 THREE Medical tablet TIMES Branch DAILY WITH MEALS FERROUS No [id number] TAKE ONE [facility] SULFATE 325 8-08 10-24 TABLET BY it y of mg (65 mg 00:00: 00:00 MOUTH [place] [facility]) 00 :00 THREE Medical tablet TIMES Branch DAILY WITH MEALS FERROUS No [id number] TAKE ONE [facility] SULFATE 325 8-13 -24 TABLET BY it y of mg (65 mg 00:00: 00:00 MOUTH [place] [facility]) 00 :00 THREE Medical tablet TIMES Branch DAILY WITH MEALS FERROUS No [id number] TAKE ONE [facility] SULFATE 325 8-13 -24 TABLET BY it y of mg (65 mg 00:00: 00:00 MOUTH [place] [facility]) 00 :00 THREE Medical tablet TIMES Branch DAILY WITH MEALS FERROUS No [id number] TAKE ONE [facility] SULFATE 325 8-13 -24 TABLET BY it y of mg (65 mg 00:00: 00:00 MOUTH [place] [facility]) 00 :00 THREE Medical tablet TIMES Branch DAILY WITH MEALS FERROUS No [id number] TAKE ONE [facility] SULFATE 325 8-13 -24 TABLET BY it y of mg (65 mg 00:00: 00:00 MOUTH [place] [facility]) 00 :00 THREE Medical tablet TIMES Branch DAILY WITH MEALS FERROUS No [id number] TAKE ONE [facility] SULFATE 325 8-13 -24 TABLET BY it y of mg (65 mg 00:00: 00:00 MOUTH [place] [facility]) 00 :00 THREE Medical tablet TIMES Branch DAILY WITH MEALS FERROUS No [id number] TAKE ONE [facility] SULFATE 325 8-13 -24 TABLET BY it y of mg (65 mg 00:00: 00:00 MOUTH [place] [facility]) 00 :00 THREE Medical tablet TIMES Branch DAILY WITH MEALS FERROUS No [id number] TAKE ONE [facility] SULFATE 325 8-13 -24 TABLET BY it y of mg (65 mg 00:00: 00:00 MOUTH [place] [facility]) 00 :00 THREE Medical tablet TIMES Branch DAILY WITH MEALS FERROUS No [id number] TAKE ONE [facility] SULFATE 325 8-13 -24 TABLET BY it y of mg (65 mg 00:00: 00:00 MOUTH [place] [facility]) 00 :00 THREE Medical tablet TIMES Branch DAILY WITH MEALS FERROUS No [id number] TAKE ONE [facility] SULFATE 325 8-13 -24 TABLET BY it y of mg (65 mg 00:00: 00:00 MOUTH [place] [facility]) 00 :00 THREE Medical tablet TIMES Branch DAILY WITH MEALS FERROUS No [id number] TAKE ONE [facility] SULFATE 325 8-13 -24 TABLET BY it y of mg (65 mg 00:00: 00:00 MOUTH [place] [facility]) 00 :00 THREE Medical tablet TIMES Branch DAILY WITH MEALS FERROUS No [id number] TAKE ONE [facility] SULFATE 325 8-13 -24 TABLET BY it y of mg (65 mg 00:00: 00:00 MOUTH [place] [facility]) 00 :00 THREE Medical tablet TIMES Branch DAILY WITH MEALS FERROUS No [id number] TAKE ONE [facility]re[facility] SULFATE 325 8-13 -24 TABLET BY it y of mg (65 mg 00:00: 00:00 MOUTH [place] [facility]) 00 :00 THREE Medical tablet TIMES Branch DAILY WITH MEALS FERROUS No [id number] TAKE ONE [facility] SULFATE 325 8-13 -24 TABLET BY it y of mg (65 mg 00:00: 00:00 MOUTH [place] [facility]) 00 :00 THREE Medical tablet TIMES Branch DAILY WITH MEALS FERROUS No [id number] TAKE ONE [facility] SULFATE 325 8-13 -24 TABLET BY it y of mg (65 mg 00:00: 00:00 MOUTH [place] [facility]) 00 :00 THREE Medical tablet TIMES Branch DAILY WITH MEALS FERROUS No [id number] TAKE ONE [facility] SULFATE 325 8-13 -24 TABLET BY it y of mg (65 mg 00:00: 00:00 MOUTH [place] [facility]) 00 :00 THREE Medical tablet TIMES Branch DAILY WITH MEALS FERROUS No [id number] TAKE ONE [facility] SULFATE 325 8-13 -24 TABLET BY it y of mg (65 mg 00:00: 00:00 MOUTH [place] [facility]) 00 :00 THREE Medical tablet TIMES Branch DAILY WITH MEALS FERROUS No [id number] TAKE ONE [facility] SULFATE 325 8-13 -24 TABLET BY it y of mg (65 mg 00:00: 00:00 MOUTH [place] [facility]) 00 :00 THREE Medical tablet TIMES Branch DAILY WITH MEALS FERROUS No [id number] TAKE ONE [facility] SULFATE 325 8-13 -24 TABLET BY it y of mg (65 mg 00:00: 00:00 MOUTH [place] [facility]) 00 :00 THREE Medical tablet TIMES Branch DAILY WITH MEALS FERROUS No [id number] TAKE ONE [facility] SULFATE 325 8-13 -24 TABLET BY it y of mg (65 mg 00:00: 00:00 MOUTH [place] [facility]) 00 :00 THREE Medical tablet TIMES Branch DAILY WITH MEALS FERROUS No [id number] TAKE ONE [facility] SULFATE 325 8-13 -24 TABLET BY it y of mg (65 mg 00:00: 00:00 MOUTH [place] [facility]) 00 :00 THREE Medical tablet TIMES Branch DAILY WITH MEALS FERROUS No [id number] TAKE ONE [facility] SULFATE 325 8-13 -24 TABLET BY it y of mg (65 mg 00:00: 00:00 MOUTH [place] [facility]) 00 :00 THREE Medical tablet TIMES Branch DAILY WITH MEALS FERROUS No [id number] TAKE ONE [facility] SULFATE 325 8-13 -24 TABLET BY it y of mg (65 mg 00:00: 00:00 MOUTH [place] [facility]) 00 :00 THREE Medical tablet TIMES Branch DAILY WITH MEALS FERROUS No [id number] TAKE ONE [facility] SULFATE 325 8-13 -24 TABLET BY it y of mg (65 mg 00:00: 00:00 MOUTH [place] [facility]) 00 :00 THREE Medical tablet TIMES Branch DAILY WITH MEALS FERROUS No [id number] TAKE ONE [facility] SULFATE 325 813 -24 TABLET BY it y of mg (65 mg 00:00: 00:00 MOUTH [place] [facility]) 00 :00 THREE Medical tablet TIMES Branch DAILY WITH MEALS FERROUS No [id number] TAKE ONE [facility] SULFATE 325 813 -24 TABLET BY it y of mg (65 mg 00:00: 00:00 MOUTH [place] [facility]) 00 :00 THREE Medical tablet TIMES Branch DAILY WITH MEALS FERROUS No [id number] TAKE ONE [facility] SULFATE 325 824 TABLET BY it y of mg (65 mg 00:00: 00:00 MOUTH [place] [facility]) 00 :00 THREE Medical tablet TIMES Branch DAILY WITH MEALS cyanocobala 2020- No 1000ug 1 mL by [facility] min 7- [facility] (VITAMIN 00:00: 00:00 lar route [facility] as B-12) 1,000 00 :00 every 2 Medic al mcg/mL (two) Branch injection weeks. cyanocobala 2020- No 1000ug 1 mL by [facility] min 7- [facility] of (VITAMIN 00:00: 00:00 lar route [place] as B-12) 1,000 00 :00 every 2 Medic al mcg/mL (two) Branch injection weeks. cyanocobala 2020- No 1000ug 1 mL by [facility] min 04-11 [facility] of (VITAMIN 00:00: 00:00 lar route [place] as B-12) 1,000 00 :00 every 2 Medic al mcg/mL (two) Branch injection weeks. cyanocobala 2020- No 1000ug 1 mL by [facility] min 7-25 [facility] of (VITAMIN 00:00: 00:00 lar route [place] as B-12) 1,000 00 :00 every 2 Medic al mcg/mL (two) Branch injection weeks. cyanocobala 2020- No 1000ug 1 mL by [facility] min 7-25 [facility] of (VITAMIN 00:00: 00:00 lar route [place] as B-12) 1,000 00 :00 every 2 Medic al mcg/mL (two) Branch injection weeks. cyanocobala 2020- No 1000ug 1 mL by [facility] min 04-11 [facility] (VITAMIN 00:00: 00:00 lar route [place] as B-12) 1,000 00 :00 every 2 Medic al mcg/mL (two) Branch injection weeks. cyanocobala 2020- No 1000ug 1 mL by [facility] min 04-11 [facility] (VITAMIN 00:00: 00:00 lar route [place] as B-12) 1,000 00 :00 every 2 Medic al mcg/mL (two) Branch injection weeks. acetaminoph 2020- No [id number] 650mg Take 1 [facility] en 650 mg 11-04 tablet by [facility]y of CR tablet 00:00: 00:00 mouth [place] 00 :00 every 8 Medical (eight) Branch hours as needed for Pain. acetaminoph 2020- No [id number] 650mg Take 1 [facility] 650 mg 11-04 tablet by [facility]y of CR tablet 00:00: 00:00 mouth [place] 00 :00 every 8 Medical (eight) Branch hours as needed for Pain. acetaminoph 2020- No [id number] 650mg Take 1 [facility] 650 mg 11-04 tablet by [facility]y of CR tablet 00:00: 00:00 mouth [place] 00 :00 every 8 Medical (eight) Branch hours as needed for Pain. acetaminoph 2020- No [id number] 650mg Take 1 [facility] 650 mg 11-04 tablet by [facility]y of CR tablet 00:00: 00:00 mouth [place] 00 :00 every 8 Medical (eight) Branch hours as needed for Pain. acetaminoph 2020- No [id number] 650mg Take 1 [facility] 650 mg 11-04 tablet by [facility]y of CR tablet 00:00: 00:00 mouth [place] 00 :00 every 8 Medical (eight) Branch hours as needed for Pain. acetaminoph 2020- No [id number] 650mg Take 1 [facility] 650 mg 11-04 tablet by [facility] of CR tablet 00:00: 00:00 mouth [place] 00 :00 every 8 Medical (eight) Branch hours as needed for Pain. acetaminoph 2020- No [id number] 650mg Take 1 [facility] 650 mg 11-04 tablet by [facility]y of CR tablet 00:00: 00:00 mouth [place] 00 :00 every 8 Medical (eight) Branch hours as needed for Pain. coQ10, Yes [id number] 1{capsu Take 1 U nivers ubiquinol, 1-16 le} capsule by ity of 100 mg Cap 00:00: mouth [place] 00 daily. Medical Branch coQ10, Yes [id number] 1{capsu Take 1 U nivers ubiquinol, 1-16 le} capsule by ity of 100 mg Cap 00:00: mouth [place] 00 daily. Medical Branch coQ10, Yes [id number] 1{capsu Take 1 U nivers ubiquinol, 1-16 le} capsule by ity of 100 mg Cap 00:00: mouth [place] 00 daily. Medical Branch coQ10, Yes [id number] 1{capsu Take 1 U nivers ubiquinol, 1-16 le} capsule by ity of 100 mg Cap 00:00: mouth [place] 00 daily. Medical Branch coQ10, Yes [id number] 1{capsu Take 1 U nivers ubiquinol, 1-16 le} capsule by ity of 100 mg Cap 00:00: mouth [place] 00 daily. Medical Branch coQ10, Yes [id number] 1{capsu Take 1 U nivers ubiquinol, 1-16 le} capsule by ity of 100 mg Cap 00:00: mouth [place] 00 daily. Medical Branch coQ10, Yes [id number] 1{capsu Take 1 U nivers ubiquinol, 1-16 le} capsule by ity of 100 mg Cap 00:00: mouth [place] 00 daily. Medical Branch coQ10, Yes [id number] 1{capsu Take 1 U nivers ubiquinol, 1-16 le} capsule by ity of 100 mg Cap 00:00: mouth [place] 00 daily. Medical Branch coQ10, Yes [id number] 1{capsu Take 1 U nivers ubiquinol, 1-16 le} capsule by ity of 100 mg Cap 00:00: mouth [place] 00 daily. Medical Branch coQ10, Yes [id number] 1{capsu Take 1 U nivers ubiquinol, 1-16 le} capsule by ity of 100 mg Cap 00:00: mouth [place] 00 daily. Medical Branch coQ10, Yes [id number] 1{capsu Take 1 U nivers ubiquinol, 1-16 le} capsule by ity of 100 mg Cap 00:00: mouth [place] 00 daily. Medical Branch coQ10, Yes [id number] 1{capsu Take 1 U nivers ubiquinol, 1-16 le} capsule by ity of 100 mg Cap 00:00: mouth [place] 00 daily. Medical Branch coQ10, Yes [id number] 1{capsu Take 1 U nivers ubiquinol, 1-16 le} capsule by ity of 100 mg Cap 00:00: mouth [place] 00 daily. Medical Branch coQ10, Yes [id number] 1{capsu Take 1 U nivers ubiquinol, 1-16 le} capsule by ity of 100 mg Cap 00:00: mouth [place] 00 daily. Medical Branch coQ10, Yes [id number] 1{capsu Take 1 U nivers ubiquinol, 1-16 le} capsule by ity of 100 mg Cap 00:00: mouth [place] 00 daily. Medical Branch coQ10, Yes [id number] 1{capsu Take 1 U nivers ubiquinol, 1-16 le} capsule by ity of 100 mg Cap 00:00: mouth [place] 00 daily. Medical Branch coQ10, Yes [id number] 1{capsu Take 1 U nivers ubiquinol, 1-16 le} capsule by ity of 100 mg Cap 00:00: mouth [place] 00 daily. Medical Branch coQ10, Yes [id number] 1{capsu Take 1 U nivers ubiquinol, 1-16 le} capsule by ity of 100 mg Cap 00:00: mouth [place] 00 daily. Medical Branch coQ10, Yes [id number] 1{capsu Take 1 U nivers ubiquinol, 1-16 le} capsule by ity of 100 mg Cap 00:00: mouth [place] 00 daily. Medical Branch coQ10, Yes [id number] 1{capsu Take 1 U nivers ubiquinol, 1-16 le} capsule by ity of 100 mg Cap 00:00: mouth [place] 00 daily. Medical Branch coQ10, Yes [id number] 1{capsu Take 1 U nivers ubiquinol, 1-16 le} capsule by ity of 100 mg Cap 00:00: mouth [place] 00 daily. Medical Branch coQ10, Yes [id number] 1{capsu Take 1 U nivers ubiquinol, 1-16 le} capsule by ity of 100 mg Cap 00:00: mouth [place] 00 daily. Medical Branch coQ10, Yes [id number] 1{capsu Take 1 U nivers ubiquinol, 1-16 le} capsule by ity of 100 mg Cap 00:00: mouth [place] 00 daily. Medical Branch coQ10, Yes [id number] 1{capsu Take 1 U nivers ubiquinol, 1-16 le} capsule by ity of 100 mg Cap 00:00: mouth [place] 00 daily. Medical Branch coQ10, Yes [id number] 1{capsu Take 1 U nivers ubiquinol, 1-16 le} capsule by ity of 100 mg Cap 00:00: mouth [place] 00 daily. Medical Branch coQ10, Yes [id number] 1{capsu Take 1 U nivers ubiquinol, 1-16 le} capsule by ity of 100 mg Cap 00:00: mouth [place] 00 daily. Medical Branch coQ10, Yes [id number] 1{capsu Take 1 U nivers ubiquinol, 1-16 le} capsule by ity of 100 mg Cap 00:00: mouth [place] 00 daily. Medical Branch coQ10, Yes [id number] 1{capsu Take 1 U nivers ubiquinol, 1-16 le} capsule by ity of 100 mg Cap 00:00: mouth [place] 00 daily. Medical Branch coQ10, Yes [id number] 1{capsu Take 1 U nivers ubiquinol, 1-16 le} capsule by ity of 100 mg Cap 00:00: mouth [place] 00 daily. Medical Branch coQ10, Yes [id number] 1{capsu Take 1 U nivers ubiquinol, 1-16 le} capsule by ity of 100 mg Cap 00:00: mouth [place] 00 daily. Medical Branch coQ10, Yes [id number] 1{capsu Take 1 U nivers ubiquinol, 1-16 le} capsule by ity of 100 mg Cap 00:00: mouth [place] 00 daily. Medical Branch coQ10, Yes [id number] 1{capsu Take 1 U nivers ubiquinol, 1-16 le} capsule by ity of 100 mg Cap 00:00: mouth [place] 00 daily. Medical Branch coQ10, Yes [id number] 1{capsu Take 1 U nivers ubiquinol, 1-16 le} capsule by ity of 100 mg Cap 00:00: mouth [place] 00 daily. Medical Branch coQ10, Yes [id number] 1{capsu Take 1 U nivers ubiquinol, 1-16 le} capsule by ity of 100 mg Cap 00:00: mouth [place] 00 daily. [facility] coQ10, Yes [id number] 1{capsu Take 1 U nivers ubiquinol, 1-16 le} capsule by ity of 100 mg Cap 00:00: mouth [place] 00 daily. [facility] Branch coQ10, Yes [id number] 1{capsu Take 1 U nivers ubiquinol, 1-16 le} capsule by ity of 100 mg Cap 00:00: mouth [place] 00 daily. [facility] Branch coQ10, Yes [id number] 1{capsu Take 1 U nivers ubiquinol, 1-16 le} capsule by ity of 100 mg Cap 00:00: mouth [place] 00 daily. Medical Branch coQ10, Yes [id number] 1{capsu Take 1 U nivers ubiquinol, 1-16 le} capsule by ity of 100 mg Cap 00:00: mouth [place] 00 daily. [facility] Branch coQ10, Yes [id number] 1{capsu Take 1 U nivers ubiquinol, 1-16 le} capsule by ity of 100 mg Cap 00:00: mouth [place] 00 daily. Medical Branch coQ10, Yes [id number] 1{capsu Take 1 U nivers ubiquinol, 1-16 le} capsule by ity of 100 mg Cap 00:00: mouth [place] 00 daily. Medical Branch coQ10, Yes [id number] 1{capsu Take 1 U nivers ubiquinol, 1-16 le} capsule by ity of 100 mg Cap 00:00: mouth [place] 00 daily. [facility] Branch coQ10, Yes [id number] 1{capsu Take 1 U nivers ubiquinol, 1-16 le} capsule by ity of 100 mg Cap 00:00: mouth [place] 00 daily. [facility] Branch coQ10, Yes [id number] 1{capsu Take 1 U nivers ubiquinol, 1-16 le} capsule by ity of 100 mg Cap 00:00: mouth [place] 00 daily. Medical Branch coQ10, Yes [id number] 1{capsu Take 1 U nivers ubiquinol, 1-16 le} capsule by ity of 100 mg Cap 00:00: mouth [place] 00 daily. Medical Branch coQ10, Yes [id number] 1{capsu Take 1 U nivers ubiquinol, 1-16 le} capsule by ity of 100 mg Cap 00:00: mouth [place] 00 daily. Medical Branch coQ10, Yes [id number] 1{capsu Take 1 U nivers ubiquinol, 1-16 le} capsule by ity of 100 mg Cap 00:00: mouth [place] 00 daily. Medical Branch coQ10, Yes [id number] 1{capsu Take 1 U nivers ubiquinol, 1-16 le} capsule by ity of 100 mg Cap 00:00: mouth [place] 00 daily. Medical Branch coQ10, Yes [id number] 1{capsu Take 1 U nivers ubiquinol, 1-16 le} capsule by ity of 100 mg Cap 00:00: mouth [place] 00 daily. Medical Branch coQ10, Yes [id number] 1{capsu Take 1 U nivers ubiquinol, 1-16 le} capsule by ity of 100 mg Cap 00:00: mouth [place] 00 daily. Medical Branch coQ10, Yes [id number] 1{capsu Take 1 U nivers ubiquinol, 1-16 le} capsule by ity of 100 mg Cap 00:00: mouth [place] 00 daily. Medical Branch coQ10, Yes [id number] 1{capsu Take 1 U nivers ubiquinol, 1-16 le} capsule by ity of 100 mg Cap 00:00: mouth [place] 00 daily. Medical Branch coQ10, Yes [id number] 1{capsu Take 1 U nivers ubiquinol, 1-16 le} capsule by ity of 100 mg Cap 00:00: mouth [place] 00 daily. Medical Branch coQ10, Yes [id number] 1{capsu Take 1 U nivers ubiquinol, 1-16 le} capsule by ity of 100 mg Cap 00:00: mouth [place] 00 daily. Medical Branch coQ10, Yes [id number] 1{capsu Take 1 U nivers ubiquinol, 1-16 le} capsule by ity of 100 mg Cap 00:00: mouth [place] 00 daily. Medical Branch coQ10, Yes [id number] 1{capsu Take 1 U nivers ubiquinol, 1-16 le} capsule by ity of 100 mg Cap 00:00: mouth [place] 00 daily. Medical Branch coQ10, Yes [id number] 1{capsu Take 1 U nivers ubiquinol, 1-16 le} capsule by ity of 100 mg Cap 00:00: mouth [place] 00 daily. Medical Branch coQ10, Yes [id number] 1{capsu Take 1 U nivers ubiquinol, 1-16 le} capsule by ity of 100 mg Cap 00:00: mouth [place] 00 daily. Medical Branch coQ10, Yes [id number] 1{capsu Take 1 U nivers ubiquinol, 1-16 le} capsule by ity of 100 mg Cap 00:00: mouth [place] 00 daily. Medical Branch coQ10, Yes [id number] 1{capsu Take 1 U nivers ubiquinol, 1-16 le} capsule by ity of 100 mg Cap 00:00: mouth [place] 00 daily. Medical Branch coQ10, Yes [id number] 1{capsu Take 1 U nivers ubiquinol, 1-16 le} capsule by ity of 100 mg Cap 00:00: mouth [place] 00 daily. Medical Branch coQ10, Yes [id number] 1{capsu Take 1 U nivers ubiquinol, 1-16 le} capsule by ity of 100 mg Cap 00:00: mouth [place] 00 daily. Medical Branch coQ10, Yes [id number] 1{capsu Take 1 U nivers ubiquinol, 1-16 le} capsule by ity of 100 mg Cap 00:00: mouth [place] 00 daily. Medical Branch coQ10, Yes [id number] 1{capsu Take 1 U nivers ubiquinol, 1-16 le} capsule by ity of 100 mg Cap 00:00: mouth [place] 00 daily. Medical Branch coQ10, Yes [id number] 1{capsu Take 1 U nivers ubiquinol, 1-16 le} capsule by ity of 100 mg Cap 00:00: mouth [place] 00 daily. Medical Branch coQ10, Yes [id number] 1{capsu Take 1 U nivers ubiquinol, 1-16 le} capsule by ity of 100 mg Cap 00:00: mouth [place] 00 daily. Medical Branch coQ10, Yes [id number] 1{capsu Take 1 U nivers ubiquinol, 1-16 le} capsule by ity of 100 mg Cap 00:00: mouth [place] 00 daily. Medical Branch coQ10, Yes [id number] 1{capsu Take 1 U nivers ubiquinol, 1-16 le} capsule by ity of 100 mg Cap 00:00: mouth [place] 00 daily. Medical Branch coQ10, Yes [id number] 1{capsu Take 1 U nivers ubiquinol, 1-16 le} capsule by ity of 100 mg Cap 00:00: mouth [place] 00 daily. Medical Branch coQ10, Yes [id number] 1{capsu Take 1 U nivers ubiquinol, 1-16 le} capsule by ity of 100 mg Cap 00:00: mouth [place] 00 daily. Medical Branch coQ10, Yes [id number] 1{capsu Take 1 U nivers ubiquinol, 1-16 le} capsule by ity of 100 mg Cap 00:00: mouth [place] 00 daily. Medical Branch coQ10, Yes [id number] 1{capsu Take 1 U nivers ubiquinol, 1-16 le} capsule by ity of 100 mg Cap 00:00: mouth [place] 00 daily. Medical Branch coQ10, Yes [id number] 1{capsu Take 1 U nivers ubiquinol, 1-16 le} capsule by ity of 100 mg Cap 00:00: mouth [place] 00 daily. Medical Branch coQ10, Yes [id number] 1{capsu Take 1 U nivers ubiquinol, 1-16 le} capsule by ity of 100 mg Cap 00:00: mouth [place] 00 daily. Medical Branch coQ10, Yes [id number] 1{capsu Take 1 U nivers ubiquinol, 1-16 le} capsule by ity of 100 mg Cap 00:00: mouth [place] 00 daily. Medical Branch coQ10, Yes [id number] 1{capsu Take 1 U nivers ubiquinol, 1-16 le} capsule by ity of 100 mg Cap 00:00: mouth [place] 00 daily. Medical Branch coQ10, Yes [id number] 1{capsu Take 1 U nivers ubiquinol, 1-16 le} capsule by ity of 100 mg Cap 00:00: mouth [place] 00 daily. [facility] Branch coQ10, Yes [id number] 1{capsu Take 1 U nivers ubiquinol, 1-16 le} capsule by ity of 100 mg Cap 00:00: mouth [place] 00 daily. [facility] Branch coQ10, Yes [id number] 1{capsu Take 1 U nivers ubiquinol, 1-16 le} capsule by ity of 100 mg Cap 00:00: mouth [place] 00 daily. [facility] [facility] coQ10, Yes [id number] 1{capsu Take 1 U nivers ubiquinol, 1-16 le} capsule by ity of 100 mg Cap 00:00: mouth [place] 00 daily. [facility] coQ10, Yes [id number] 1{capsu Take 1 U nivers ubiquinol, 1-16 le} capsule by ity of 100 mg Cap 00:00: mouth [place] 00 daily. [facility] coQ10, Yes [id number] 1{capsu Take 1 U nivers ubiquinol, 1-16 le} capsule by ity of 100 mg Cap 00:00: mouth [place] 00 daily. [facility] coQ10, Yes [id number] 1{capsu Take 1 U nivers ubiquinol, 1-16 le} capsule by ity of 100 mg Cap 00:00: mouth [place] 00 daily. [facility] coQ10, Yes [id number] 1{capsu Take 1 U nivers ubiquinol, 1-16 le} capsule by ity of 100 mg Cap 00:00: mouth [place] 00 daily. [facility] coQ10, Yes [id number] 1{capsu Take 1 U nivers ubiquinol, 1-16 le} capsule by ity of 100 mg Cap 00:00: mouth [place] 00 daily. [facility] coQ10, Yes [id number] 1{capsu Take 1 U nivers ubiquinol, 1-16 le} capsule by ity of 100 mg Cap 00:00: mouth [place] 00 daily. [facility] coQ10, Yes [id number] 1{capsu Take 1 U nivers ubiquinol, 1-16 le} capsule by ity of 100 mg Cap 00:00: mouth [place] 00 daily. [facility] coQ10, Yes [id number] 1{capsu Take 1 U nivers ubiquinol, 1-16 le} capsule by ity of 100 mg Cap 00:00: mouth [place] 00 daily. [facility] coQ10, Yes [id number] 1{capsu Take 1 [facility] nivers ubiquinol, 1-16 le} capsule by ity of 100 mg Cap 00:00: mouth [place] 00 daily. [facility] coQ10, Yes [id number] 1{capsu Take 1 U nivers ubiquinol, 1-16 le} capsule by ity of 100 mg Cap 00:00: mouth [place] 00 daily. [facility] coQ10, Yes [id number] 1{capsu Take 1 U nivers ubiquinol, 1-16 le} capsule by ity of 100 mg Cap 00:00: mouth [place] 00 daily. [facility] coQ10, Yes [id number] 1{capsu Take 1 U nivers ubiquinol, 1-16 le} capsule by ity of 100 mg Cap 00:00: mouth [place] 00 daily. [facility] coQ10, Yes [id number] 1{capsu Take 1 [facility] nivers ubiquinol, 1-16 le} capsule by ity of 100 mg Cap 00:00: mouth [place] 00 daily. [facility] coQ10, Yes [id number] 1{capsu Take 1 [facility] nivers ubiquinol, 1-16 le} capsule by ity of 100 mg Cap 00:00: mouth [place] 00 daily. [facility] coQ10, Yes [id number] 1{capsu Take 1 U nivers ubiquinol, 1-16 le} capsule by ity of 100 mg Cap 00:00: mouth [place] 00 daily. [facility] coQ10, Yes [id number] 1{capsu Take 1 U nivers ubiquinol, 1-16 le} capsule by ity of 100 mg Cap 00:00: mouth [place] 00 daily. [facility] coQ10, Yes [id number] 1{capsu Take 1 [facility] nivers ubiquinol, 1-16 le} capsule by ity of 100 mg Cap 00:00: mouth [place] 00 daily. [facility] coQ10, Yes [id number] 1{capsu Take 1 [facility] nivers ubiquinol, 1-16 le} capsule by ity of 100 mg Cap 00:00: mouth [place] 00 daily. [facility] coQ10, Yes [id number] 1{capsu Take 1 [facility] nivers ubiquinol, 1-16 le} capsule by ity of 100 mg Cap 00:00: mouth [place] 00 daily. [facility] coQ10, Yes [id number] 1{capsu Take 1 [facility] nivers ubiquinol, 1-16 le} capsule by ity of 100 mg Cap 00:00: mouth [place] 00 daily. [facility] coQ10, Yes [id number] 1{capsu Take 1 [facility] nivers ubiquinol, 1-16 le} capsule by ity of 100 mg Cap 00:00: mouth [place] 00 daily. [facility] coQ10, Yes [id number] 1{capsu Take 1 [facility] nivers ubiquinol, 1-16 le} capsule by ity of 100 mg Cap 00:00: mouth [place] 00 daily. [facility] coQ10, Yes [id number] 1{capsu Take 1 [facility] nivers ubiquinol, 1-16 le} capsule by ity of 100 mg Cap 00:00: mouth [place] 00 daily. [facility] coQ10, Yes [id number] 1{capsu Take 1 U nivers ubiquinol, 1-16 le} capsule by ity of 100 mg Cap 00:00: mouth [place] 00 daily. [facility] coQ10, Yes [id number] 1{capsu Take 1 [facility] nivers ubiquinol, 1-16 le} capsule by ity of 100 mg Cap 00:00: mouth [place] 00 daily. [facility] coQ10, Yes [id number] 1{capsu Take 1 [facility] nivers ubiquinol, 1-16 le} capsule by ity of 100 mg Cap 00:00: mouth [place] 00 daily. [facility] coQ10, Yes [id number] 1{capsu Take 1 U nivers ubiquinol, 1-16 le} capsule by ity of 100 mg Cap 00:00: mouth [place] 00 daily. [facility] coQ10, Yes [id number] 1{capsu Take 1 U nivers ubiquinol, 1-16 le} capsule by ity of 100 mg Cap 00:00: mouth [place] 00 daily. [facility] coQ10, Yes [id number] 1{capsu Take 1 U nivers ubiquinol, 1-16 le} capsule by ity of 100 mg Cap 00:00: mouth [place] 00 daily. [facility] coQ10, Yes [id number] 1{capsu Take 1 [facility] nivers ubiquinol, 1-16 le} capsule by ity of 100 mg Cap 00:00: mouth [place] 00 daily. [facility] coQ10, Yes [id number] 1{capsu Take 1 [facility] nivers ubiquinol, 1-16 le} capsule by ity of 100 mg Cap 00:00: mouth [place] 00 daily. [facility] coQ10, Yes [id number] 1{capsu Take 1 [facility] nivers ubiquinol, 1-16 le} capsule by ity of 100 mg Cap 00:00: mouth [place] 00 daily. [facility] coQ10, Yes [id number] 1{capsu Take 1 [facility] nivers ubiquinol, 1-16 le} capsule by ity of 100 mg Cap 00:00: mouth [place] 00 daily. [facility] coQ10, Yes [id number] 1{capsu Take 1 U nivers ubiquinol, 1-16 le} capsule by ity of 100 mg Cap 00:00: mouth [place] 00 daily. [facility] coQ10, Yes [id number] 1{capsu Take 1 U nivers ubiquinol, 1-16 le} capsule by ity of 100 mg Cap 00:00: mouth [place] 00 daily. [facility] coQ10, Yes [id number] 1{capsu Take 1 U nivers ubiquinol, 1-16 le} capsule by ity of 100 mg Cap 00:00: mouth [place] 00 daily. [facility] coQ10, Yes [id number] 1{capsu Take 1 [facility] nivers ubiquinol, 1-16 le} capsule by ity of 100 mg Cap 00:00: mouth [place] 00 daily. [facility] coQ10, Yes [id number] 1{capsu Take 1 U nivers ubiquinol, 1-16 le} capsule by ity of 100 mg Cap 00:00: mouth [place] 00 daily. [facility] coQ10, Yes [id number] 1{capsu Take 1 U nivers ubiquinol, 1-16 le} capsule by ity of 100 mg Cap 00:00: mouth [place] 00 daily. [facility] coQ10, Yes [id number] 1{capsu Take 1 U nivers ubiquinol, 1-16 le} capsule by ity of 100 mg Cap 00:00: mouth [place] 00 daily. [facility] coQ10, Yes [id number] 1{capsu Take 1 U nivers ubiquinol, 1-16 le} capsule by ity of 100 mg Cap 00:00: mouth [place] 00 daily. [facility] coQ10, Yes [id number] 1{capsu Take 1 U nivers ubiquinol, 1-16 le} capsule by ity of 100 mg Cap 00:00: mouth [place] 00 daily. [facility] coQ10, Yes [id number] 1{capsu Take 1 U nivers ubiquinol, 1-16 le} capsule by ity of 100 mg Cap 00:00: mouth [place] 00 daily. [facility] coQ10, Yes [id number] 1{capsu Take 1 U nivers ubiquinol, 1-16 le} capsule by ity of 100 mg Cap 00:00: mouth [place] 00 daily. [facility] coQ10, Yes [id number] 1{capsu Take 1 U nivers ubiquinol, 1-16 le} capsule by ity of 100 mg Cap 00:00: mouth [place] 00 daily. [facility] coQ10, Yes [id number] 1{capsu Take 1 U nivers ubiquinol, 1-16 le} capsule by ity of 100 mg Cap 00:00: mouth [place] 00 daily. [facility] coQ10, Yes [id number] 1{capsu Take 1 U nivers ubiquinol, 1-16 le} capsule by ity of 100 mg Cap 00:00: mouth [place] 00 daily. [facility] coQ10, 2022- No [id number] 1{capsu Take 1 [facility] ubiquinol, 1-16 05-25 le} capsule by it y of 100 mg Cap 00:00: 00:00 mouth [place] 00 :00 daily. [facility] coQ10, 2022- No [id number] 1{capsu Take 1 [facility] ubiquinol, 1-16 05-25 le} capsule by it y of 100 mg Cap 00:00: 00:00 mouth [place] 00 :00 daily. [facility] coQ10, 2022- No [id number] 1{capsu Take 1 [facility] ubiquinol, 1-16 05-25 le} capsule by it y of 100 mg Cap 00:00: 00:00 mouth [place] 00 :00 daily. [place] [address], 2022- No [id number] 1{capsu Take 1 [facility] ubiquinol, 1-16 05-25 le} capsule by it y of 100 mg Cap 00:00: 00:00 mouth [place] 00 :00 daily. [place] [address], 2022- No [id number] 1{capsu Take 1 [facility] ubiquinol, 1-16 05-25 le} capsule by it y of 100 mg Cap 00:00: 00:00 mouth [place] 00 :00 daily. [facility], 2022- No [id number] 1{capsu Take 1 [facility] ubiquinol, 1-16 05-25 le} capsule by it y of 100 mg Cap 00:00: 00:00 mouth [place] 00 :00 daily. [place] [address], 2022- No [id number] 1{capsu Take 1 [facility] ubiquinol, 1-16 05-25 le} capsule by it y of 100 mg Cap 00:00: 00:00 mouth [place] 00 :00 daily. [place] [address], 2022- No [id number] 1{capsu Take 1 [facility] ubiquinol, 1-16 05-25 le} capsule by it y of 100 mg Cap 00:00: 00:00 mouth [place] 00 :00 daily. [place] [address], 2022- No [id number] 1{capsu Take 1 [facility] ubiquinol, 1-16 05-25 le} capsule by it y of 100 mg Cap 00:00: 00:00 mouth [place] 00 :00 daily. [place] [address], 2022- No [id number] 1{capsu Take 1 [facility] ubiquinol, 1-16 05-25 le} capsule by it y of 100 mg Cap 00:00: 00:00 mouth [place] 00 :00 daily. [facility] coQ, 2022- No [id number] 1{capsu Take 1 [facility] ubiquinol, 1-16 05-25 le} capsule by it y of 100 mg Cap 00:00: 00:00 mouth [place] 00 :00 daily. [facility] coQ, 2022- No [id number] 1{capsu Take 1 [facility] ubiquinol, 1-16 05-25 le} capsule by it y of 100 mg Cap 00:00: 00:00 mouth [place] 00 :00 daily. [facility] coQ10, 2022- No [id number] 1{capsu Take 1 [facility] ubiquinol, 1-16 05-25 le} capsule by it y of 100 mg Cap 00:00: 00:00 mouth [place] 00 :00 daily. [facility] coQ10, 2022- No [id number] 1{capsu Take 1 [facility] ubiquinol, 1-16 05-25 le} capsule by it y of 100 mg Cap 00:00: 00:00 mouth [place] 00 :00 daily. [facility] coQ10, 2022- No [id number] 1{capsu Take 1 [facility] ubiquinol, 1-16 05-25 le} capsule by it y of 100 mg Cap 00:00: 00:00 mouth [place] 00 :00 daily. [facility] coQ10, 2022- No [id number] 1{capsu Take 1 [facility] ubiquinol, 1-16 05-25 le} capsule by it y of 100 mg Cap 00:00: 00:00 mouth [place] 00 :00 daily. [facility] coQ10, 2022- No [id number] 1{capsu Take 1 [facility] ubiquinol, 1-16 05-25 le} capsule by it y of 100 mg Cap 00:00: 00:00 mouth [place] 00 :00 daily. [facility] coQ10, 2022- No [id number] 1{capsu Take 1 [facility] ubiquinol, 1-16 05-25 le} capsule by it y of 100 mg Cap 00:00: 00:00 mouth [place] 00 :00 daily. [facility] coQ10, 2022- No [id number] 1{capsu Take 1 [facility] ubiquinol, 1-16 05-25 le} capsule by it y of 100 mg Cap 00:00: 00:00 mouth [place] 00 :00 daily. [facility] coQ10, 3- No [id number] 1{capsu Take 1 [facility] ubiquinol, 1-16 05-25 le} capsule by it y of 100 mg Cap 00:00: 00:00 mouth [place] 00 :00 daily. [facility] coQ10, 2022- No [id number] 1{capsu Take 1 [facility] ubiquinol, 1-16 05-25 le} capsule by it y of 100 mg Cap 00:00: 00:00 mouth [place] 00 :00 daily. [facility] coQ, 2022- No [id number] 1{capsu Take 1 [facility] ubiquinol, 1-16 05-25 le} capsule by it y of 100 mg Cap 00:00: 00:00 mouth [place] 00 :00 daily. [facility] coQ, 2022- No [id number] 1{capsu Take 1 [facility] ubiquinol, 1-16 05-25 le} capsule by it y of 100 mg Cap 00:00: 00:00 mouth [place] 00 :00 daily. [facility] coQ, 2022- No [id number] 1{capsu Take 1 [facility] ubiquinol, 1-16 05-25 le} capsule by it y of 100 mg Cap 00:00: 00:00 mouth [place] 00 :00 daily. [place] [address], 2022- No [id number] 1{capsu Take 1 [facility] ubiquinol, 1-16 05-25 le} capsule by it y of 100 mg Cap 00:00: 00:00 mouth [place] 00 :00 daily. [place] [address], 2022- No [id number] 1{capsu Take 1 [facility] ubiquinol, 1-16 05-25 le} capsule by it y of 100 mg Cap 00:00: 00:00 mouth [place] 00 :00 daily. [facility] loratadine Yes [id number] 10mg Take 1 [facility] 10 mg 1-23 tablet by ity of tablet 00:00: mouth [place] 00 daily. [facility] loratadine Yes [id number] 10mg Take 1 [facility] 10 mg 1-23 tablet by ity of tablet 00:00: mouth [place] 00 daily. [facility] loratadine Yes [id number] 10mg Take 1 [facility] 10 mg 1-23 tablet by ity of tablet 00:00: mouth [place] 00 daily. [facility] loratadine Yes [id number] 10mg Take 1 [facility] 10 mg 1-23 tablet by ity of tablet 00:00: mouth [place] 00 daily. [facility] loratadine Yes [id number] 10mg Take 1 [facility] 10 mg 1-23 tablet by ity of tablet 00:00: mouth [place] 00 daily. [facility] loratadine 2021- No [id number] 10mg Take 1 [facility] 10 mg 1-23 06-13 tablet by ity of tablet 00:00: 00:00 mouth [place] 00 :00 daily. [facility] loratadine 2021- No [id number] 10mg Take 1 [facility] 10 mg 1-23 06-13 tablet by ity of tablet 00:00: 00:00 mouth [place] 00 :00 daily. [facility] loratadine 2021- No [id number] 10mg Take 1 [facility] 10 mg 1-23 06-13 tablet by ity of tablet 00:00: 00:00 mouth [place] 00 :00 daily. [facility] loratadine 2021- No [id number] 10mg Take 1 [facility] 10 mg 1-23 06-13 tablet by ity of tablet 00:00: 00:00 mouth [place] 00 :00 daily. [facility] loratadine 2021- No [id number] 10mg Take 1 [facility] 10 mg 1-23 06-13 tablet by ity of tablet 00:00: 00:00 mouth [place] 00 :00 daily. [facility] loratadine 2021- No [id number] 10mg Take 1 [facility] 10 mg 1-23 06-13 tablet by ity of tablet 00:00: 00:00 mouth [place] 00 :00 daily. [facility] loratadine 2021- No [id number] 10mg Take 1 [facility] 10 mg 1-23 06-13 tablet by ity of tablet 00:00: 00:00 mouth [place] 00 :00 daily. [facility] loratadine 2021- No [id number] 10mg Take 1 [facility] 10 mg 1-23 06-13 tablet by ity of tablet 00:00: 00:00 mouth [place] 00 :00 daily. [facility] loratadine 2021- No [id number] 10mg Take 1 [facility] 10 mg 1-23 06-13 tablet by ity of tablet 00:00: 00:00 mouth [place] 00 :00 daily. [facility] loratadine 2021- No [id number] 10mg Take 1 [facility] 10 mg 1-23 06-13 tablet by ity of tablet 00:00: 00:00 mouth [place] 00 :00 daily. [facility] loratadine 2021- No [id number] 10mg Take 1 [facility] 10 mg 1-23 06-13 tablet by ity of tablet 00:00: 00:00 mouth [place] 00 :00 daily. [facility] loratadine 2021- No [id number] 10mg Take 1 [facility] 10 mg 1-23 06-13 tablet by ity of tablet 00:00: 00:00 mouth [place] 00 :00 daily. [facility] loratadine 2021- No [id number] 10mg Take 1 [facility] 10 mg 1-23 06-13 tablet by ity of tablet 00:00: 00:00 mouth [place] 00 :00 daily. [facility] loratadine 2021- No [id number] 10mg Take 1 [facility] 10 mg 1-23 06-13 tablet by ity of tablet 00:00: 00:00 mouth [place] 00 :00 daily. [facility] loratadine 2021- No [id number] 10mg Take 1 [facility] 10 mg 1-23 06-13 tablet by ity of tablet 00:00: 00:00 mouth [place] 00 :00 daily. [facility] loratadine 2021- No [id number] 10mg Take 1 [facility] 10 mg 1-23 06-13 tablet by ity of tablet 00:00: 00:00 mouth [place] 00 :00 daily. [facility] loratadine 2021- No [id number] 10mg Take 1 [facility] 10 mg 1-23 06-13 tablet by ity of tablet 00:00: 00:00 mouth [place] 00 :00 daily. [facility] loratadine 2021- No [id number] 10mg Take 1 [facility] 10 mg 1-23 06-13 tablet by ity of tablet 00:00: 00:00 mouth [place] 00 :00 daily. [facility] loratadine 2021- No [id number] 10mg Take 1 [facility] 10 mg 1-23 06-13 tablet by ity of tablet 00:00: 00:00 mouth [place] 00 :00 daily. [facility] loratadine 2021- No [id number] 10mg Take 1 [facility] 10 mg 1-23 06-13 tablet by ity of tablet 00:00: 00:00 mouth [place] 00 :00 daily. [facility] loratadine 2021- No [id number] 10mg Take 1 [facility] 10 mg 1-23 06-13 tablet by ity of tablet 00:00: 00:00 mouth [place] 00 :00 daily. [facility] loratadine 2021- No [id number] 10mg Take 1 [facility] 10 mg 10-18-13 tablet by ity of tablet 00:00: 00:00 mouth [place] 00 :00 daily. [facility] loratadine 2021- No [id number] 10mg Take 1 [facility] 10 mg 10-18-13 tablet by ity of tablet 00:00: 00:00 mouth [place] 00 :00 daily. [facility] loratadine 2021- No [id number] 10mg Take 1 [facility] 10 mg 10-18- tablet by ity of tablet 00:00: 00:00 mouth [place] 00 :00 daily. [facility] Immunizations Ordered Immunization Filled Date Status Comments Sour ce Name Immunization Name SARS-COV-2 COVID-19 2022-07-27 Completed Unive rsity [...] YRS+, BIVALENT Branch 0.3ML, IM, (PFIZER FOUNTAIN TOP) SARS-COV-2 COVID-19 2022-07-27 Completed Unive rsity of [facility]-SUCR[facility] VACCINE 00:00:00 [facility] 12 YRS+, BIVALENT Branch 0.3ML, IM, (PFIZER FOUNTAIN TOP) SARS-COV-2 COVID-19 2022-07-27 Completed Unive rsity of CHRISTELLE-SUCROSE VACCINE 00:00:00 [facility] 12 YRS+, BIVALENT Branch 0.3ML, IM, (PFIZER FOUNTAIN TOP) SARS-COV-2 COVID-19 2022-07-27 Completed Unive rsity of CHRISTELLE-SUCROSE VACCINE 00:00:00 [facility] 12 YRS+, BIVALENT Branch 0.3ML, IM, (PFIZER FOUNTAIN TOP) SARS-COV-2 COVID-19 2022-07-27 Completed Unive rsity of CHRISTELLE-SUCROSE VACCINE 00:00:00 [facility] 12 YRS+, BIVALENT Branch 0.3ML, IM, (PFIZER FOUNTAIN TOP) SARS-COV-2 COVID-19 2022-07-27 Completed Unive rsity of CHRISTELLE-SUCROSE VACCINE 00:00:00 [facility] 12 YRS+, BIVALENT Branch 0.3ML, IM, (PFIZER FOUNTAIN TOP) SARS-COV-2 COVID-19 2022-07-27 Completed Unive rsity of CHRISTELLE-SUCROSE VACCINE 00:00:00 [facility] 12 YRS+, BIVALENT Branch 0.3ML, IM, (PFIZER FOUNTAIN TOP) SARS-COV-2 COVID-19 2022-07-27 Completed Unive rsity of CHRISTELLE-SUCROSE VACCINE 00:00:00 [facility] 12 YRS+, BIVALENT Branch 0.3ML, IM, (PFIZER FOUNTAIN TOP) Influenza Virus 2022-06-04 Completed Universit y of Vaccine Quad .5 mL 00:00:00 [place] [facility] 6[facility] Influenza Virus 2022-06-04 Completed [facility] y of Vaccine Quad .5 mL 00:00:00 [place] [facility] 6+ [facility] Influenza Virus 2022-06-04 Completed [facility] y of Vaccine Quad .5 mL 00:00:00 [place] [facility] 6+ [facility] Influenza Virus 2022-06-04 Completed [facility] y of Vaccine Quad .5 mL 00:00:00 [place] [facility] 6+ [facility] Influenza Virus 2022-06-04 Completed [facility] y of Vaccine Quad .5 mL 00:00:00 [place] [facility] 6[facility] Influenza Virus 2022-06-04 Completed [facility] y of Vaccine Quad .5 mL 00:00:00 [place] [facility] 6[facility] Influenza Virus 2022-06-04 Completed [facility] y of Vaccine Quad .5 mL 00:00:00 [place] [facility] 6[facility] Influenza Virus 2022-06-04 Completed [facility] y of Vaccine Quad .5 mL 00:00:00 [place] [facility] 6[facility] Influenza Virus 2022-06-04 Completed [facility] y of Vaccine Quad .5 mL 00:00:00 [place] [facility] Influenza Virus 2022-06-04 Completed [facility] y of Vaccine Quad .5 mL 00:00:00 [place] [facility] Influenza Virus 2022-06-04 Completed [facility] y of Vaccine Quad .5 mL 00:00:00 [place] [facility] Influenza Virus 2022-06-04 Completed [facility] y of Vaccine Quad .5 mL 00:00:00 [place] [facility] Influenza Virus 2022-06-04 Completed [facility] y of Vaccine Quad .5 mL 00:00:00 [place] [facility] Influenza Virus 2022-06-04 Completed [facility] y of Vaccine Quad .5 mL 00:00:00 [place] [facility] Influenza Virus 2022-06-04 Completed [facility] y of Vaccine Quad .5 mL 00:00:00 [place] [facility] Influenza Virus 2022-06-04 Completed [facility] y of Vaccine Quad .5 mL 00:00:00 [place] [facility] Influenza Virus 2022-06-04 Completed [facility] y of Vaccine Quad .5 mL 00:00:00 [place] [facility] Influenza Virus 2022-06-04 Completed [facility] y of Vaccine Quad .5 mL 00:00:00 [place] [facility] Influenza Virus 2022-06-04 Completed [facility] of Vaccine [facility] .5 mL 00:00:00 [place] [facility] Influenza Virus 2022-06-04 Completed [facility] y of Vaccine [facility] .5 mL 00:00:00 [place] [facility] Influenza Virus 2022-06-04 Completed [facility] y of Vaccine [facility] .5 mL 00:00:00 [place] [facility] Influenza Virus 2022-06-04 Completed [facility] of Vaccine Quad .5 mL 00:00:00 [place] [facility] Influenza Virus 2022-06-04 Completed [facility] of Vaccine [facility] .5 mL 00:00:00 [place] [facility] Influenza Virus 2022-06-04 Completed [facility] y of Vaccine [facility] .5 mL 00:00:00 [place] [facility] Influenza Virus 2022-06-04 Completed [facility] of Vaccine [facility] .5 mL 00:00:00 [place] [facility] Influenza Virus 2022-06-04 Completed [facility] of Vaccine [facility] .5 mL 00:00:00 [place] [facility] Influenza Virus 2022-06-04 Completed [facility] of Vaccine Quad .5 mL 00:00:00 [place] [facility] Influenza Virus 2022-06-04 Completed [facility] of Vaccine [facility] .5 mL 00:00:00 [place] [facility] Influenza Virus 2022-06-04 Completed [facility] of Vaccine [facility] .5 mL 00:00:00 [place] [facility] Influenza Virus 2022-06-04 Completed [facility] Vaccine [facility] .5 mL 00:00:00 [place] [facility] Influenza Virus 2022-06-04 Completed [facility] of Vaccine Quad .5 mL 00:00:00 [place] [facility] Influenza Virus 2022-06-04 Completed [facility] of Vaccine Quad .5 mL 00:00:00 [place] [facility] Influenza Virus 2022-06-04 Completed [facility] of Vaccine Quad .5 mL 00:00:00 [place] [facility] Influenza Virus 2022-06-04 Completed [facility] of Vaccine Quad .5 mL 00:00:00 [place] [facility] Influenza Virus 2022-06-04 Completed [facility] of Vaccine Quad .5 mL 00:00:00 [place] [facility] Influenza Virus 2022-06-04 Completed [facility] of Vaccine Quad .5 mL 00:00:00 [place] [facility] Influenza Virus 2022-06-04 Completed [facility] of Vaccine [facility] .5 mL 00:00:00 [place] [facility] Influenza Virus 2022-06-04 Completed [facility] of Vaccine Quad .5 mL 00:00:00 [place] [facility] Influenza Virus 2022-06-04 Completed [facility] of Vaccine Quad .5 mL 00:00:00 [place] [facility] Influenza Virus 2022-06-04 Completed [facility] of Vaccine Quad .5 mL 00:00:00 [place] [facility] Influenza Virus 2022-06-04 Completed [facility] of Vaccine Quad .5 mL 00:00:00 [place] [facility] Influenza Virus 2022-06-04 Completed [facility] y of Vaccine Quad .5 mL 00:00:00 [place] [facility] Influenza Virus 2022-06-04 Completed [facility] of Vaccine Quad .5 mL 00:00:00 [place] [facility] Influenza Virus 2022-06-04 Completed [facility] of Vaccine Quad .5 mL 00:00:00 [place] [facility] Influenza Virus 2022-06-04 Completed [facility] of Vaccine Quad .5 mL 00:00:00 [place] [facility] Influenza Virus 2022-06-04 Completed [facility] of Vaccine Quad .5 mL 00:00:00 [place] [facility] Influenza Virus 2022-06-04 Completed [facility] of Vaccine Quad .5 mL 00:00:00 [place] [facility] Influenza Virus 2022-06-04 Completed [facility] of Vaccine Quad .5 mL 00:00:00 [place] [facility] Influenza Virus 2022-06-04 Completed [facility] of Vaccine Quad .5 mL 00:00:00 [place] [facility] Influenza Virus 2022-06-04 Completed [facility] of Vaccine Quad .5 mL 00:00:00 [place] [facility] Influenza Virus 2022-06-04 Completed [facility] of Vaccine Quad .5 mL 00:00:00 [place] [facility] Influenza Virus 2022-06-04 Completed [facility] Vaccine [facility] .5 mL 00:00:00 [place] [facility] Influenza Virus 2022-06-04 Completed [facility] Vaccine [facility] .5 mL 00:00:00 [place] [facility] Influenza Virus 2022-06-04 Completed [facility] Vaccine [facility] .5 mL 00:00:00 [place] [facility] Influenza Virus 2022-06-04 Completed [facility] Vaccine [facility] .5 mL 00:00:00 [place] [facility] Influenza Virus 2022-06-04 Completed [facility] Vaccine Quad .5 mL 00:00:00 [place] [facility] Influenza Virus 2022-06-04 Completed [facility] Vaccine Quad .5 mL 00:00:00 [place] [facility] Influenza Virus 2022-06-04 Completed [facility] Vaccine Quad .5 mL 00:00:00 [place] [facility] Influenza Virus 2022-06-04 Completed [facility] of Vaccine Quad .5 mL 00:00:00 [place] [facility] Influenza Virus 2022-06-04 Completed [facility] Vaccine Quad .5 mL 00:00:00 [place] [facility] Influenza Virus 2022-06-04 Completed [facility] Vaccine Quad .5 mL 00:00:00 [place] [facility] Influenza Virus 2022-06-04 Completed [facility] .5 mL 00:00:00 [place] [facility] Influenza Virus 2022-06-04 Completed [facility] .5 mL 00:00:00 [facility] Influenza Virus 2022-06-04 Completed [facility] .5 mL 00:00:00 [facility] (hep a/hep 2022-02-24 Completed [facility] b) 00:00:[address] [facility] Twinrix (hep a/hep 2022-02-24 Completed [facility] of b) 00:00:[address] [facility] Twin[facility] (hep a/hep 2022-02-24 Completed [facility] b) 00:00:00 [facility] Twin[facility] (hep a/hep 2022-02-24 Completed [facility] of b) 00:00:00 [facility] (hep a/hep 2022-02-24 Completed [facility] b) 00:00:00 [facility] (hep a/hep 2022-02-24 Completed [facility] b) 00:00:00 [facility] (hep a/hep 2022-02-24 Completed [facility] b) 00:00:00 [facility] (hep a/hep 2022-02-24 Completed [facility] b) 00:00:00 [facility] (hep a/hep 2022-02-24 Completed [facility] b) 00:00:00 [facility] (hep a/hep 2022-02-24 Completed [facility] b) 00:00:00 [facility] (hep a/hep 2022-02-24 Completed [facility] b) 00:00:00 [facility] (hep a/hep 2022-02-24 Completed [facility] b) 00:00:00 [facility] (hep a/hep 2022-02-24 Completed [facility] b) 00:00:00 [facility] (hep a/hep 2022-02-24 Completed [facility] b) 00:00:00 [facility] (hep a/hep 2022-02-24 Completed [facility] b) 00:00:00 [facility] (hep a/hep 2022-02-24 Completed [facility] b) 00:00:00 [facility] (hep a/hep 2022-02-24 Completed [facility] b) 00:00:00 [facility] (hep a/hep 2022-02-24 Completed [facility] b) 00:00:00 [facility] (hep a/hep 2022-02-24 Completed [facility] b) 00:00:00 [facility] (hep a/hep 2022-02-24 Completed [facility] b) 00:00:00 [facility] (hep a/hep 2022-02-24 Completed [facility] b) 00:00:00 [facility] (hep a/hep 2022-02-24 Completed [facility] of b) 00:00:00 [facility] (hep a/hep 2022-02-24 Completed [facility] b) 00:00:00 [facility] (hep a/hep 2022-02-24 Completed [facility] of b) 00:00:00 [facility] (hep a/hep 2022-02-24 Completed [facility] b) 00:00:00 [facility] (hep a/hep 2022-02-24 Completed [facility] b) 00:00:00 [facility] (hep a/hep 2022-02-24 Completed [facility] b) 00:00:00 [facility] (hep a/hep 2022-02-24 Completed [facility] b) 00:00:00 [facility] (hep a/hep 2022-02-24 Completed [facility] b) 00:00:00 [facility] (hep a/hep 2022-02-24 Completed [facility] b) 00:00:00 [facility] (hep a/hep 2022-02-24 Completed [facility] of b) 00:00:00 [facility] (hep a/hep 2022-02-24 Completed [facility] b) 00:00:00 [facility] (hep a/hep 2022-02-24 Completed [facility] b) 00:00:00 [facility] (hep a/hep 2022-02-24 Completed [facility] b) 00:00:00 [facility] (hep a/hep 2022-02-24 Completed [facility] b) 00:00:00 [facility] (hep a/hep 2022-02-24 Completed [facility] b) 00:00:00 [facility] (hep a/hep 2022-02-24 Completed [facility] of b) 00:00:00 [facility] (hep a/hep 2022-02-24 Completed [facility] of b) 00:00:00 [facility] (hep a/hep 2022-02-24 Completed [facility] b) 00:00:00 [facility] (hep a/hep 2022-02-24 Completed [facility] b) 00:00:00 [facility] (hep a/hep 2022-02-24 Completed [facility] b) 00:00:00 [facility] (hep a/hep 2022-02-24 Completed [facility] b) 00:00:00 [facility] (hep a/hep 2022-02-24 Completed [facility] b) 00:00:00 [facility] (hep a/hep 2022-02-24 Completed [facility] b) 00:00:00 [facility] (hep a/hep 2022-02-24 Completed [facility] b) 00:00:00 [facility] (hep a/hep 2022-02-24 Completed [facility] b) 00:00:00 [facility] (hep a/hep 2022-02-24 Completed [facility] b) 00:00:00 [facility] (hep a/hep 2022-02-24 Completed [facility] b) 00:00:00 [facility] (hep a/hep 2022-02-24 Completed [facility] b) 00:00:00 [facility] (hep a/hep 2022-02-24 Completed [facility] b) 00:00:00 [facility] (hep a/hep 2022-02-24 Completed [facility] of b) 00:00:00 [facility] (hep a/hep 2022-02-24 Completed [facility] of b) 00:00:00 [facility] (hep a/hep 2022-02-24 Completed [facility] b) 00:00:00 [facility] (hep a/hep 2022-02-24 Completed [facility] b) 00:00:00 [facility] (hep a/hep 2022-02-24 Completed [facility] b) 00:00:00 [facility] (hep a/hep 2022-02-24 Completed [facility] b) 00:00:00 [facility] (hep a/hep 2022-02-24 Completed [facility] b) 00:00:00 [facility] (hep a/hep 2022-02-24 Completed [facility] b) 00:00:00 [facility] (hep a/hep 2022-02-24 Completed [facility] b) 00:00:00 [facility] (hep a/hep 2022-02-24 Completed [facility] b) 00:00:00 [facility] (hep a/hep 2022-02-24 Completed [facility] b) 00:00:00 [facility] (hep a/hep 2022-02-24 Completed [facility] b) 00:00:00 [facility] (hep a/hep 2022-02-24 Completed [facility] b) 00:00:00 [facility] (hep a/hep 2022-02-24 Completed [facility] b) 00:00:00 [facility] (hep a/hep 2022-02-24 Completed [facility] of b) 00:00:00 [facility] (hep a/hep 2022-02-24 Completed [facility] of b) 00:00:00 [facility] (hep a/hep 2022-02-24 Completed [facility] of b) 00:00:00 [facility] (hep a/hep 2022-02-24 Completed [facility] of b) 00:00:00 [facility] (hep a/hep 2022-02-24 Completed [facility] b) 00:00:00 [facility] (hep a/hep 2022-02-24 Completed [facility] of b) 00:00:00 [facility] (hep a/hep 2022-02-24 Completed [facility] of b) 00:00:00 [facility] (hep a/hep 2022-02-24 Completed [facility] of b) 00:00:00 [facility] (hep a/hep 2022-02-24 Completed [facility] of b) 00:00:00 [facility] (hep a/hep 2022-02-24 Completed [facility] of b) 00:00:00 [facility] (hep a/hep 2022-02-24 Completed [facility] of b) 00:00:00 [facility] (hep a/hep 2022-02-24 Completed [facility] of b) 00:00:00 [facility] (hep a/hep 2022-02-24 Completed [facility] of b) 00:00:00 [facility] (hep a/hep 2022-02-24 Completed [facility] of b) 00:00:00 [facility] (hep a/hep 2022-02-24 Completed [facility] of b) 00:00:00 [facility] (hep a/hep 2022-02-24 Completed [facility] of b) 00:00:00 [facility] (hep a/hep 2022-02-24 Completed [facility] of b) 00:00:00 [facility] (hep a/hep 2022-02-24 Completed [facility] of b) 00:00:00 [facility] (hep a/hep 2022-02-24 Completed [facility] of b) 00:00:00 [facility] (hep a/hep 2022-02-24 Completed [facility] of b) 00:00:00 [facility] (hep a/hep 2022-02-24 Completed [facility] of b) 00:00:00 [facility] (hep a/hep 2022-02-24 Completed [facility] of b) 00:00:00 [facility] (hep a/hep 2022-02-24 Completed [facility] s[facility] of b) 00:00:00 [facility] (hep a/hep 2022-02-24 Completed [facility] of b) 00:00:00 [facility] (hep a/hep 2022-02-24 Completed [facility] of b) 00:00:00 [facility] (hep a/hep 2022-02-24 Completed [facility] b) 00:00:00 [facility] (hep a/hep 2022-02-24 Completed [facility] b) 00:00:00 [facility] (hep a/hep 2022-02-24 Completed [facility] of b) 00:00:00 [facility] (hep a/hep 2022-02-24 Completed [facility] of b) 00:00:00 [facility] (hep a/hep 2022-02-24 Completed [facility] of b) 00:00:00 [facility] (hep a/hep 2022-02-24 Completed [facility] of b) 00:00:00 [facility] (hep a/hep 2022-02-24 Completed [facility] of b) 00:00:00 [facility] (hep a/hep 2022-02-24 Completed [facility] of b) 00:00:00 [facility] (hep a/hep 2022-02-24 Completed [facility] of b) 00:00:00 [facility] (hep a/hep 2022-02-24 Completed [facility] of b) 00:00:00 [facility] (hep a/hep 2022-02-24 Completed [facility] of b) 00:00:00 [facility] (hep a/hep 2022-02-24 Completed [facility] of b) 00:00:00 [facility] (hep a/hep 2022-02-24 Completed [facility] of b) 00:00:00 [facility] (hep a/hep 2022-02-24 Completed [facility] b) 00:00:00 [facility] (hep a/hep 2022-02-24 Completed [facility] of b) 00:00:00 [facility] (hep a/hep 2022-02-24 Completed [facility] b) 00:00:00 [facility] (hep a/hep 2022-02-24 Completed [facility] of b) 00:00:00 [facility] (hep a/hep 2022-02-24 Completed [facility] of b) 00:00:00 [facility] (hep a/hep 2022-02-24 Completed [facility] of b) 00:00:00 [facility] (hep a/hep 2022-02-24 Completed [facility] of b) 00:00:00 [facility] (hep a/hep 2022-02-24 Completed [facility] of b) 00:00:00 [facility] (hep a/hep 2022-02-24 Completed [facility] of b) 00:00:00 [facility] (hep a/hep 2022-02-24 Completed [facility] of b) 00:00:00 [facility] (hep a/hep 2022-02-24 Completed [facility] of b) 00:00:00 [facility] (hep a/hep 2022-02-24 Completed [facility] of b) 00:00:00 [facility] (hep a/hep 2022-02-24 Completed [facility] of b) 00:00:00 [facility] (hep a/hep 2022-02-24 Completed [facility] of b) 00:00:00 [facility] (hep a/hep 2022-02-24 Completed [facility] of b) 00:00:00 [facility] (hep a/hep 2022-02-24 Completed [facility] of b) 00:00:00 [facility] (hep a/hep 2022-02-24 Completed [facility] of b) 00:00:00 [facility] (hep a/hep 2022-02-24 Completed [facility] of b) 00:00:00 [facility] (hep a/hep 2022-02-24 Completed [facility] of b) 00:00:00 [facility] (hep a/hep 2022-02-24 Completed [facility] of b) 00:00:00 [facility] (hep a/hep 2022-02-24 Completed [facility] of b) 00:00:00 [facility] (hep a/hep 2022-02-24 Completed [facility] of b) 00:00:00 [facility] (hep a/hep 2022-02-24 Completed [facility] of b) 00:00:00 [facility] (hep a/hep 2022-02-24 Completed [facility] of b) 00:00:00 [facility] (hep a/hep 2022-02-24 Completed [facility] of b) 00:00:00 [facility] (hep a/hep 2022-02-24 Completed [facility] of b) 00:00:00 [facility] (hep a/hep 2022-02-24 Completed [facility] of b) 00:00:00 [facility] (hep a/hep 2022-02-24 Completed [facility] of b) 00:00:00 [facility] (hep a/hep 2022-02-24 Completed [facility] of b) 00:00:00 [facility] (hep a/hep 2022-02-24 Completed [facility] of b) 00:00:00 [facility] (hep a/hep 2022-02-24 Completed [facility] of b) 00:00:00 [facility] (hep a/hep 2022-01-14 Completed [facility] of b) 00:00:00 [facility] (hep a/hep 2022-01-14 Completed [facility] of b) 00:00:00 [facility] (hep a/hep 2022-01-14 Completed [facility] of b) 00:00:00 [facility] (hep a/hep 2022-01-14 Completed [facility] of b) 00:00:00 [facility] (hep a/hep 2022-01-14 Completed [facility] of b) 00:00:00 [facility] (hep a/hep 2022-01-14 Completed [facility] of b) 00:00:00 [facility] (hep a/hep 2022-01-14 Completed [facility] of b) 00:00:00 [facility] (hep a/hep 2022-01-14 Completed [facility] of b) 00:00:00 [facility] (hep a/hep 2022-01-14 Completed [facility] of b) 00:00:00 [facility] (hep a/hep 2022-01-14 Completed [facility] of b) 00:00:00 [facility] (hep a/hep 2022-01-14 Completed [facility] of b) 00:00:00 [facility] (hep a/hep 2022-01-14 Completed [facility] of b) 00:00:00 [facility] (hep a/hep 2022-01-14 Completed [facility] of b) 00:00:00 [facility] (hep a/hep 2022-01-14 Completed [facility] of b) 00:00:00 [facility] (hep a/hep 2022-01-14 Completed [facility] of b) 00:00:00 [facility] (hep a/hep 2022-01-14 Completed [facility] of b) 00:00:00 [facility] (hep a/hep 2022-01-14 Completed [facility] of b) 00:00:00 [facility] (hep a/hep 2022-01-14 Completed [facility] of b) 00:00:00 [facility] (hep a/hep 2022-01-14 Completed [facility] of b) 00:00:00 [facility] (hep a/hep 2022-01-14 Completed [facility] of b) 00:00:00 [facility] (hep a/hep 2022-01-14 Completed [facility] of b) 00:00:00 [facility] (hep a/hep 2022-01-14 Completed [facility] of b) 00:00:00 [facility] (hep a/hep 2022-01-14 Completed [facility] of b) 00:00:00 [facility] (hep a/hep 2022-01-14 Completed [facility] of b) 00:00:00 [facility] (hep a/hep 2022-01-14 Completed [facility]ity of b) 00:00:00 [facility] (hep a/hep 2022-01-14 Completed [facility] of b) 00:00:00 [facility] (hep a/hep 2022-01-14 Completed [facility] of b) 00:00:00 [facility] (hep a/hep 2022-01-14 Completed [facility] of b) 00:00:00 [facility] (hep a/hep 2022-01-14 Completed [facility] of b) 00:00:00 [facility] (hep a/hep 2022-01-14 Completed [facility] of b) 00:00:00 [facility] (hep a/hep 2022-01-14 Completed [facility] of b) 00:00:00 [facility] (hep a/hep 2022-01-14 Completed [facility] of b) 00:00:00 [facility] (hep a/hep 2022-01-14 Completed [facility] of b) 00:00:00 [facility] (hep a/hep 2022-01-14 Completed [facility] of b) 00:00:00 [facility] (hep a/hep 2022-01-14 Completed [facility] of b) 00:00:00 [facility] (hep a/hep 2022-01-14 Completed [facility] of b) 00:00:00 [facility] (hep a/hep 2022-01-14 Completed [facility] of b) 00:00:00 [facility] (hep a/hep 2022-01-14 Completed [facility] of b) 00:00:00 [facility] (hep a/hep 2022-01-14 Completed [facility] of b) 00:00:00 [facility] (hep a/hep 2022-01-14 Completed [facility] of b) 00:00:00 [facility] (hep a/hep 2022-01-14 Completed [facility] of b) 00:00:00 [facility] (hep a/hep 2022-01-14 Completed [facility] of b) 00:00:00 [facility] (hep a/hep 2022-01-14 Completed [facility] of b) 00:00:00 [facility] (hep a/hep 2022-01-14 Completed [facility]ity of b) 00:00:00 [facility] (hep a/hep 2022-01-14 Completed [facility]ity of b) 00:00:00 [facility] (hep a/hep 2022-01-14 Completed [facility] of b) 00:00:00 [facility] (hep a/hep 2022-01-14 Completed [facility]ity of b) 00:00:00 [facility] (hep a/hep 2022-01-14 Completed [facility]ity of b) 00:00:00 [facility] (hep a/hep 2022-01-14 Completed [facility]ity of b) 00:00:00 [facility] (hep a/hep 2022-01-14 Completed [facility]ity of b) 00:00:00 [facility] (hep a/hep 2022-01-14 Completed [facility]ity of b) 00:00:00 [facility] (hep a/hep 2022-01-14 Completed [facility]ity of b) 00:00:00 [facility] (hep a/hep 2022-01-14 Completed [facility]ity of b) 00:00:00 [facility] (hep a/hep 2022-01-14 Completed Univer sity of b) 00:00:00 [facility] (hep a/hep 2022-01-14 Completed [facility]ity of b) 00:00:00 [facility] (hep a/hep 2022-01-14 Completed [facility] of b) 00:00:00 [facility] (hep a/hep 2022-01-14 Completed [facility] of b) 00:00:00 [facility] (hep a/hep 2022-01-14 Completed [facility]iver [facility]ity of b) 00:00:00 [facility] (hep a/hep 2022-01-14 Completed [facility]ity of b) 00:00:00 [facility] (hep a/hep 2022-01-14 Completed [facility] of b) 00:00:00 [facility] (hep a/hep 2022-01-14 Completed Univer [facility]ity of b) 00:00:00 [facility] (hep a/hep 2022-01-14 Completed Univer sity of b) 00:00:00 [facility] (hep a/hep 2022-01-14 Completed Univer sity of b) 00:00:00 [facility] (hep a/hep 2022-01-14 Completed Univer sity of b) 00:00:00 [facility] (hep a/hep 2022-01-14 Completed Univer sity of b) 00:00:00 [facility] (hep a/hep 2022-01-14 Completed Univer sity of b) 00:00:00 [facility] (hep a/hep 2022-01-14 Completed Univer sity of b) 00:00:00 [facility] (hep a/hep 2022-01-14 Completed Univer sity of b) 00:00:00 [facility] (hep a/hep 2022-01-14 Completed Univer sity of b) 00:00:00 [facility] (hep a/hep 2022-01-14 Completed Univer sity of b) 00:00:00 [facility] (hep a/hep 2022-01-14 Completed Univer sity of b) 00:00:00 [facility] (hep a/hep 2022-01-14 Completed Univer sity of b) 00:00:00 [facility] (hep a/hep 2022-01-14 Completed Univer sity of b) 00:00:00 [facility] (hep a/hep 2022-01-14 Completed Univer sity of b) 00:00:00 [facility] (hep a/hep 2022-01-14 Completed Univer sity of b) 00:00:00 [facility] (hep a/hep 2022-01-14 Completed Univer sity of b) 00:00:00 [facility] (hep a/hep 2022-01-14 Completed Univer sity of b) 00:00:00 [facility] (hep a/hep 2022-01-14 Completed Univer sity of b) 00:00:00 [facility] (hep a/hep 2022-01-14 Completed Univer sity of b) 00:00:00 [facility] (hep a/hep 2022-01-14 Completed Univer sity of b) 00:00:00 [facility] (hep a/hep 2022-01-14 Completed Univer sity of b) 00:00:00 [facility] (hep a/hep 2022-01-14 Completed Univer sity of b) 00:00:00 [facility] (hep a/hep 2022-01-14 Completed Univer sity of b) 00:00:00 [facility] (hep a/hep 2022-01-14 Completed Univer sity of b) 00:00:00 [facility] (hep a/hep 2022-01-14 Completed Univer sity of b) 00:00:00 [facility] (hep a/hep 2022-01-14 Completed Univer sity of b) 00:00:00 [facility] (hep a/hep 2022-01-14 Completed Univer sity of b) 00:00:00 [facility] (hep a/hep 2022-01-14 Completed Univer sity of b) 00:00:00 [facility] (hep a/hep 2022-01-14 Completed Univer sity of b) 00:00:00 [facility] (hep a/hep 2022-01-14 Completed Univer sity of b) 00:00:00 [facility] (hep a/hep 2022-01-14 Completed Univer sity of b) 00:00:00 [facility] (hep a/hep 2022-01-14 Completed Univer sity of b) 00:00:00 [facility] (hep a/hep 2022-01-14 Completed Univer sity of b) 00:00:00 [facility] (hep a/hep 2022-01-14 Completed Univer sity of b) 00:00:00 [facility] (hep a/hep 2022-01-14 Completed Univer sity of b) 00:00:00 [facility] (hep a/hep 2022-01-14 Completed Univer sity of b) 00:00:00 [facility] (hep a/hep 2022-01-14 Completed Univer sity of b) 00:00:00 [facility] (hep a/hep 2022-01-14 Completed Univer sity of b) 00:00:00 [facility] (hep a/hep 2022-01-14 Completed Univer sity of b) 00:00:00 [facility] (hep a/hep 2022-01-14 Completed Univer sity of b) 00:00:00 [facility] (hep a/hep 2022-01-14 Completed Univer sity of b) 00:00:00 [facility] (hep a/hep 2022-01-14 Completed Univer sity of b) 00:00:00 [facility] (hep a/hep 2022-01-14 Completed Univer sity of b) 00:00:00 [facility] (hep a/hep 2022-01-14 Completed Univer sity of b) 00:00:00 [facility] (hep a/hep 2022-01-14 Completed Univer sity of b) 00:00:00 [facility] (hep a/hep 2022-01-14 Completed Univer sity of b) 00:00:00 [facility] (hep a/hep 2022-01-14 Completed Univer sity of b) 00:00:00 [facility] (hep a/hep 2022-01-14 Completed Univer sity of b) 00:00:00 [facility] (hep a/hep 2022-01-14 Completed Univer sity of b) 00:00:00 [facility] (hep a/hep 2022-01-14 Completed Univer sity of b) 00:00:00 [facility] (hep a/hep 2022-01-14 Completed Univer sity of b) 00:00:00 [facility] (hep a/hep 2022-01-14 Completed Univer sity of b) 00:00:00 [facility] (hep a/hep 2022-01-14 Completed Univer sity of b) 00:00:00 [facility] (hep a/hep 2022-01-14 Completed Univer sity of b) 00:00:00 [facility] (hep a/hep 2022-01-14 Completed Univer sity of b) 00:00:00 [facility] (hep a/hep 2022-01-14 Completed Univer sity of b) 00:00:00 [facility] (hep a/hep 2022-01-14 Completed Univer sity of b) 00:00:00 [facility] (hep a/hep 2022-01-14 Completed Univer sity of b) 00:00:00 [facility] (hep a/hep 2022-01-14 Completed Univer sity of b) 00:00:00 [facility] (hep a/hep 2022-01-14 Completed Univer sity of b) 00:00:00 [facility] (hep a/hep 2022-01-14 Completed Univer sity of b) 00:00:00 [facility] (hep a/hep 2022-01-14 Completed Univer sity of b) 00:00:[address] [facility] (hep a/hep 2022-01-14 Completed Univer sity of b) 00:00:00 [facility] (hep a/hep 2022-01-14 Completed Univer sity of b) 00:00:[address] [facility] (hep a/hep 2022-01-14 Completed Univer sity of b) 00:00:[address] [facility] (hep a/hep 2022-01-14 Completed Univer sity of b) 00:00:[address] [facility] (hep a/hep 2022-01-14 Completed Univer sity of b) 00:00:[address] [facility] (hep a/hep 2022-01-14 Completed Univer sity of b) 00:00:[address] [facility] (hep a/hep 2022-01-14 Completed Univer sity of b) 00:00:[address] [facility] (hep a/hep 2022-01-14 Completed Univer sity of b) 00:00:[address] [facility] (hep a/hep 2022-01-14 Completed Univer sity of b) 00:00:[address] [facility] (hep a/hep 2022-01-14 Completed Univer sity of b) 00:00:[address] [facility] (hep a/hep 2022-01-14 Completed Univer sity of b) 00:00:[address] [facility] SARS-COV-2 COVID-19 2021-07-23 Completed Unive rsity of PFIZER VACCINE 00:00:00 [facility] SARS-COV-2 COVID-19 2021-07-23 Completed [facility]ive rsity of PFIZER VACCINE 00:00:00 [facility] SARS-COV-2 COVID-19 2021-07-23 Completed [facility]ive rsity of PFIZER VACCINE 00:00:00 [facility] SARS-COV-2 COVID-19 2021-07-23 Completed [facility]ive rsity of PFIZER VACCINE 00:00:00 [facility] SARS-COV-2 COVID-19 2021-07-23 Completed [facility]ive [facility] of PFIZER VACCINE 00:00:00 [facility] SARS-COV-2 COVID-19 2021-07-23 Completed [facility]ive rs[facility] of PFIZER VACCINE 00:00:00 [facility] SARS-COV-2 COVID-19 2021-07-23 Completed [facility] of PFIZER VACCINE 00:00:00 [facility] SARS-COV-2 COVID-19 2021-07-23 Completed Unive rsity of PFIZER VACCINE 00:00:00 [facility] SARS-COV-2 COVID-19 2021-07-23 Completed [facility]ive rsity of PFIZER VACCINE 00:00:00 [facility] SARS-COV-2 COVID-19 2021-07-23 Completed [facility]ive rsity of PFIZER VACCINE 00:00:00 [facility] SARS-COV-2 COVID-19 2021-07-23 Completed [facility]ive [facility]ity of PFIZER VACCINE 00:00:00 [facility] SARS-COV-2 COVID-19 2021-07-23 Completed [facility]ive rsity of PFIZER VACCINE 00:00:00 [facility] SARS-COV-2 COVID-19 2021-07-23 Completed [facility]ive rsity of PFIZER VACCINE 00:00:00 [facility] SARS-COV-2 COVID-19 2021-07-23 Completed [facility]ive [facility] of PFIZER VACCINE 00:00:00 [facility] SARS-COV-2 COVID-19 2021-07-23 Completed [facility]ive rs[facility] of PFIZER VACCINE 00:00:00 [facility] SARS-COV-2 COVID-19 2021-07-23 Completed [facility]ive rsity of PFIZER VACCINE 00:00:00 [facility] SARS-COV-2 COVID-19 2021-07-23 Completed [facility]ive rs[facility] of PFIZER VACCINE 00:00:00 [facility] SARS-COV-2 COVID-19 2021-07-23 Completed [facility]ive [facility] of PFIZER VACCINE 00:00:00 [facility] SARS-COV-2 COVID-19 2021-07-23 Completed [facility] PFIZER VACCINE 00:00:00 [facility] SARS-COV-2 COVID-19 2021-07-23 Completed [facility] of PFIZER VACCINE 00:00:00 [facility] SARS-COV-2 COVID-19 2021-07-23 Completed Unive rs[facility] of PFIZER VACCINE 00:00:00 [facility] SARS-COV-2 COVID-19 2021-07-23 Completed [facility]ive rs[facility] of PFIZER VACCINE 00:00:00 [facility] SARS-COV-2 COVID-19 2021-07-23 Completed [facility]ive [facility] of PFIZER VACCINE 00:00:00 [facility] SARS-COV-2 COVID-19 2021-07-23 Completed [facility]ive [facility] of PFIZER VACCINE 00:00:00 [facility] SARS-COV-2 COVID-19 2021-07-23 Completed [facility]ive [facility] of PFIZER VACCINE 00:00:00 [facility] SARS-COV-2 COVID-19 2021-07-23 Completed [facility] of PFIZER VACCINE 00:00:00 [facility] SARS-COV-2 COVID-19 2021-07-23 Completed [facility] of PFIZER VACCINE 00:00:00 [facility] SARS-COV-2 COVID-19 2021-07-23 Completed [facility] of PFIZER VACCINE 00:00:00 [facility] SARS-COV-2 COVID-19 2021-07-23 Completed [facility] of PFIZER VACCINE 00:00:00 [facility] SARS-COV-2 COVID-19 2021-07-23 Completed [facility] of PFIZER VACCINE 00:00:00 [facility] SARS-COV-2 COVID-19 2021-07-23 Completed [facility]ive [facility] of PFIZER VACCINE 00:00:00 [facility] SARS-COV-2 COVID-19 2021-07-23 Completed [facility]ive [facility] of PFIZER VACCINE 00:00:00 [facility] SARS-COV-2 COVID-19 2021-07-23 Completed [facility]ive [facility] of PFIZER VACCINE 00:00:00 [facility] SARS-COV-2 COVID-19 2021-07-23 Completed [facility]ive [facility] of PFIZER VACCINE 00:00:00 [facility] SARS-COV-2 COVID-19 2021-07-23 Completed [facility]ive [facility] of PFIZER VACCINE 00:00:00 [facility] SARS-COV-2 COVID-19 2021-07-23 Completed [facility]ive [facility] of PFIZER VACCINE 00:00:00 [facility] SARS-COV-2 COVID-19 2021-07-23 Completed [facility]ive [facility] of PFIZER VACCINE 00:00:00 [facility] SARS-COV-2 COVID-19 2021-07-23 Completed [facility]ive [facility] of PFIZER VACCINE 00:00:00 [facility] SARS-COV-2 COVID-19 2021-07-23 Completed [facility]ive [facility] of PFIZER VACCINE 00:00:00 [facility] SARS-COV-2 COVID-19 2021-07-23 Completed [facility]ive [facility] of PFIZER VACCINE 00:00:00 [facility] SARS-COV-2 COVID-19 2021-07-23 Completed [facility]ive [facility] of PFIZER VACCINE 00:00:00 [facility] SARS-COV-2 COVID-19 2021-07-23 Completed [facility]ive [facility] of PFIZER VACCINE 00:00:00 [facility] SARS-COV-2 COVID-19 2021-07-23 Completed [facility] of PFIZER VACCINE 00:00:00 [facility] SARS-COV-2 COVID-19 2021-07-23 Completed [facility]ive [facility] of PFIZER VACCINE 00:00:00 [facility] SARS-COV-2 COVID-19 2021-07-23 Completed [facility] of PFIZER VACCINE 00:00:00 [facility] SARS-COV-2 COVID-19 2021-07-23 Completed [facility] of PFIZER VACCINE 00:00:00 [facility] SARS-COV-2 COVID-19 2021-07-23 Completed [facility] of PFIZER VACCINE 00:00:00 [facility] SARS-COV-2 COVID-19 2021-07-23 Completed [facility] of PFIZER VACCINE 00:00:00 [facility] SARS-COV-2 COVID-19 2021-07-23 Completed [facility] of PFIZER VACCINE 00:00:00 [facility] SARS-COV-2 COVID-19 2021-07-23 Completed [facility]ive [facility] of PFIZER VACCINE 00:00:00 [facility] SARS-COV-2 COVID-19 2021-07-23 Completed [facility] of PFIZER VACCINE 00:00:00 [facility] SARS-COV-2 COVID-19 2021-07-23 Completed [facility] of PFIZER VACCINE 00:00:00 [facility] SARS-COV-2 COVID-19 2021-07-23 Completed [facility]ive [facility] of PFIZER VACCINE 00:00:00 [facility] SARS-COV-2 COVID-19 2021-07-23 Completed [facility] of PFIZER VACCINE 00:00:00 [facility] SARS-COV-2 COVID-19 2021-07-23 Completed [facility] of PFIZER VACCINE 00:00:00 [facility] SARS-COV-2 COVID-19 2021-07-23 Completed [facility] of PFIZER VACCINE 00:00:00 [facility] SARS-COV-2 COVID-19 2021-07-23 Completed [facility] of PFIZER VACCINE 00:00:00 [facility] SARS-COV-2 COVID-19 2021-07-23 Completed [facility] of PFIZER VACCINE 00:00:00 [facility] SARS-COV-2 COVID-19 2021-07-23 Completed [facility] of PFIZER VACCINE 00:00:00 [facility] SARS-COV-2 COVID-19 2021-07-23 Completed [facility] of PFIZER VACCINE 00:00:00 [facility] SARS-COV-2 COVID-19 2021-07-23 Completed [facility] of PFIZER VACCINE 00:00:00 [facility] SARS-COV-2 COVID-19 2021-07-23 Completed [facility] of PFIZER VACCINE 00:00:00 [facility] SARS-COV-2 COVID-19 2021-07-23 Completed [facility] of PFIZER VACCINE 00:00:00 [facility] SARS-COV-2 COVID-19 2021-07-23 Completed [facility] of PFIZER VACCINE 00:00:00 [facility] SARS-COV-2 COVID-19 2021-07-23 Completed [facility] of PFIZER VACCINE 00:00:00 [facility] SARS-COV-2 COVID-19 2021-07-23 Completed [facility] of PFIZER VACCINE 00:00:00 [facility] SARS-COV-2 COVID-19 2021-07-23 Completed [facility] of PFIZER VACCINE 00:00:00 [facility] SARS-COV-2 COVID-19 2021-07-23 Completed [facility] of PFIZER VACCINE 00:00:00 [facility] SARS-COV-2 COVID-19 2021-07-23 Completed [facility] of PFIZER VACCINE 00:00:00 [facility] SARS-COV-2 COVID-19 2021-07-23 Completed [facility] of PFIZER VACCINE 00:00:00 [facility] SARS-COV-2 COVID-19 2021-07-23 Completed [facility] of PFIZER VACCINE 00:00:00 [facility] SARS-COV-2 COVID-19 2021-07-23 Completed [facility] of PFIZER VACCINE 00:00:00 [facility] SARS-COV-2 COVID-19 2021-07-23 Completed [facility] of PFIZER VACCINE 00:00:00 [facility] SARS-COV-2 COVID-19 2021-07-23 Completed [facility] of PFIZER VACCINE 00:00:00 [facility] SARS-COV-2 COVID-19 2021-07-23 Completed [facility] of PFIZER VACCINE 00:00:00 [facility] SARS-COV-2 COVID-19 2021-07-23 Completed [facility] of PFIZER VACCINE 00:00:00 [facility] SARS-COV-2 COVID-19 2021-07-23 Completed [facility] of PFIZER VACCINE 00:00:00 [facility] SARS-COV-2 COVID-19 2021-07-23 Completed [facility] of PFIZER VACCINE 00:00:00 [facility] SARS-COV-2 COVID-19 2021-07-23 Completed [facility] of PFIZER VACCINE 00:00:00 [facility] SARS-COV-2 COVID-19 2021-07-23 Completed [facility] PFIZER VACCINE 00:00:00 [facility] SARS-COV-2 COVID-19 2021-07-23 Completed [facility] of PFIZER VACCINE 00:00:00 [facility] SARS-COV-2 COVID-19 2021-07-23 Completed [facility] of PFIZER VACCINE 00:00:00 [facility] SARS-COV-2 COVID-19 2021-07-23 Completed [facility] of PFIZER VACCINE 00:00:00 [facility] SARS-COV-2 COVID-19 2021-07-23 Completed [facility] of PFIZER VACCINE 00:00:00 [facility] SARS-COV-2 COVID-19 2021-07-23 Completed [facility] of PFIZER VACCINE 00:00:00 [facility] SARS-COV-2 COVID-19 2021-07-23 Completed [facility] of PFIZER VACCINE 00:00:00 [facility] SARS-COV-2 COVID-19 2021-07-23 Completed [facility] of PFIZER VACCINE 00:00:00 [facility] SARS-COV-2 COVID-19 2021-07-23 Completed [facility] of PFIZER VACCINE 00:00:00 [facility] SARS-COV-2 COVID-19 2021-07-23 Completed [facility] of PFIZER VACCINE 00:00:00 [facility] SARS-COV-2 COVID-19 2021-07-23 Completed [facility] of PFIZER VACCINE 00:00:00 [facility] SARS-COV-2 COVID-19 2021-07-23 Completed [facility] of PFIZER VACCINE 00:00:00 [facility] SARS-COV-2 COVID-19 2021-07-23 Completed [facility] of PFIZER VACCINE 00:00:00 [facility] SARS-COV-2 COVID-19 2021-07-23 Completed [facility] of PFIZER VACCINE 00:00:00 [facility] SARS-COV-2 COVID-19 2021-07-23 Completed [facility] of PFIZER VACCINE 00:00:00 [facility] SARS-COV-2 COVID-19 2021-07-23 Completed [facility] of PFIZER VACCINE 00:00:00 [facility] SARS-COV-2 COVID-19 2021-07-23 Completed [facility] of PFIZER VACCINE 00:00:00 [facility] SARS-COV-2 COVID-19 2021-07-23 Completed [facility] of PFIZER VACCINE 00:00:00 [facility] SARS-COV-2 COVID-19 2021-07-23 Completed [facility] of PFIZER VACCINE 00:00:00 [facility] SARS-COV-2 COVID-19 2021-07-23 Completed [facility] of PFIZER VACCINE 00:00:00 [facility] SARS-COV-2 COVID-19 2021-07-23 Completed [facility] of PFIZER VACCINE 00:00:00 [facility] SARS-COV-2 COVID-19 2021-07-23 Completed [facility] of PFIZER VACCINE 00:00:00 [facility] SARS-COV-2 COVID-19 2021-07-23 Completed [facility] of PFIZER VACCINE 00:00:00 [facility] SARS-COV-2 COVID-19 2021-07-23 Completed [facility] of PFIZER VACCINE 00:00:00 [facility] SARS-COV-2 COVID-19 2021-07-23 Completed [facility] of PFIZER VACCINE 00:00:00 [facility] SARS-COV-2 COVID-19 2021-07-23 Completed [facility] of PFIZER VACCINE 00:00:00 [facility] SARS-COV-2 COVID-19 2021-07-23 Completed [facility] of PFIZER VACCINE 00:00:00 [facility] SARS-COV-2 COVID-19 2021-07-23 Completed [facility] of PFIZER VACCINE 00:00:00 [facility] SARS-COV-2 COVID-19 2021-07-23 Completed [facility] of PFIZER VACCINE 00:00:00 [facility] SARS-COV-2 COVID-19 2021-07-23 Completed [facility] of PFIZER VACCINE 00:00:00 [facility] SARS-COV-2 COVID-19 2021-07-23 Completed [facility] of PFIZER VACCINE 00:00:00 [facility] SARS-COV-2 COVID-19 2021-07-23 Completed [facility] of PFIZER VACCINE 00:00:00 [facility] SARS-COV-2 COVID-19 2021-07-23 Completed [facility] of PFIZER VACCINE 00:00:00 [facility] SARS-COV-2 COVID-19 2021-07-23 Completed [facility] of PFIZER VACCINE 00:00:00 [facility] SARS-COV-2 COVID-19 2021-07-23 Completed [facility] of PFIZER VACCINE 00:00:00 [facility] SARS-COV-2 COVID-19 2021-07-23 Completed [facility] of PFIZER VACCINE 00:00:00 [facility] SARS-COV-2 COVID-19 2021-07-23 Completed [facility] of PFIZER VACCINE 00:00:00 [facility] SARS-COV-2 COVID-19 2021-07-23 Completed [facility] of PFIZER VACCINE 00:00:00 [facility] SARS-COV-2 COVID-19 2021-07-23 Completed [facility] of PFIZER VACCINE 00:00:00 [facility] SARS-COV-2 COVID-19 2021-07-23 Completed [facility] of PFIZER VACCINE 00:00:00 [facility] SARS-COV-2 COVID-19 2021-07-23 Completed [facility] of PFIZER VACCINE 00:00:00 [facility] SARS-COV-2 COVID-19 2021-07-23 Completed [facility] PFIZER VACCINE 00:00:00 [facility] SARS-COV-2 COVID-19 2021-07-23 Completed [facility] PFIZER VACCINE 00:00:00 [facility] SARS-COV-2 COVID-19 2021-07-23 Completed [facility] PFIZER VACCINE 00:00:00 [facility] SARS-COV-2 COVID-19 2021-07-23 Completed [facility] PFIZER VACCINE 00:00:00 [facility] SARS-COV-2 COVID-19 2021-07-23 Completed [facility] PFIZER VACCINE 00:00:00 [facility] SARS-COV-2 COVID-19 2021-07-23 Completed [facility] PFIZER VACCINE 00:00:00 [facility] SARS-COV-2 COVID-19 2021-07-23 Completed [facility] PFIZER VACCINE 00:00:00 [facility] SARS-COV-2 COVID-19 2021-07-23 Completed [facility] PFIZER VACCINE 00:00:00 [facility] SARS-COV-2 COVID-19 2021-07-23 Completed [facility] PFIZER VACCINE 00:00:00 [facility] SARS-COV-2 COVID-19 2021-07-23 Completed [facility] PFIZER VACCINE 00:00:00 [facility] SARS-COV-2 COVID-19 2021-07-23 Completed [facility] PFIZER VACCINE 00:00:00 [facility] SARS-COV-2 COVID-19 2021-07-23 Completed [facility] PFIZER VACCINE 00:00:00 [facility] SARS-COV-2 COVID-19 2021-07-23 Completed [facility] PFIZER VACCINE 00:00:00 [facility] Influenza Virus 2021-05-27 Completed [facility] yrs) 00:00:00 [facility] Influenza Virus 2021-05-27 Completed [facility]ine (3+ yrs) 00:00:00 [facility] Influenza Virus 2021-05-27 Completed [facility] Vaccine (3+ yrs) 00:00:00 [facility] Influenza Virus 2021-05-27 Completed [facility] Vaccine (3+ yrs) 00:00:00 [facility] Influenza Virus 2021-05-27 Completed [facility] Vaccine (3+ yrs) 00:00:00 [facility] Influenza Virus 2021-05-27 Completed [facility] Vaccine (3+ yrs) 00:00:00 [facility] Influenza Virus 2021-05-27 Completed [facility] Vaccine (3+ yrs) 00:00:00 [facility] Influenza Virus 2021-05-27 Completed [facility] Vaccine (3+ yrs) 00:00:00 [facility] Influenza Virus 2021-05-27 Completed [facility] Vaccine (3+ yrs) 00:00:00 [facility] Influenza Virus 2021-05-27 Completed [facility] Vaccine (3+ yrs) 00:00:00 [facility] Influenza Virus 2021-05-27 Completed [facility] Vaccine (3+ yrs) 00:00:00 [facility] Influenza Virus 2021-05-27 Completed [facility] Vaccine (3+ yrs) 00:00:00 [facility] Influenza Virus 2021-05-27 Completed [facility] Vaccine (3+ yrs) 00:00:00 [facility] Influenza Virus 2021-05-27 Completed [facility] Vaccine (3+ yrs) 00:00:00 [facility] Influenza Virus 2021-05-27 Completed [facility] Vaccine (3+ yrs) 00:00:00 [facility] Influenza Virus 2021-05-27 Completed [facility] Vaccine (3+ yrs) 00:00:00 [facility] Influenza Virus 2021-05-27 Completed [facility] Vaccine (3+ yrs) 00:00:00 [facility] Influenza Virus 2021-05-27 Completed [facility] Vaccine (3+ yrs) 00:00:00 [facility] Influenza Virus 2021-05-27 Completed [facility] Vaccine (3+ yrs) 00:00:00 [facility] Influenza Virus 2021-05-27 Completed [facility] Vaccine (3+ yrs) 00:00:00 [facility] Influenza Virus 2021-05-27 Completed [facility] Vaccine (3+ yrs) 00:00:00 [facility] Influenza Virus 2021-05-27 Completed [facility] Vaccine (3+ yrs) 00:00:00 [facility] Influenza Virus 2021-05-27 Completed [facility] Vaccine (3+ yrs) 00:00:00 [facility] Influenza Virus 2021-05-27 Completed [facility] Vaccine (3+ yrs) 00:00:00 [facility] Influenza Virus 2021-05-27 Completed [facility] Vaccine (3+ yrs) 00:00:00 [facility] Influenza Virus 2021-05-27 Completed [facility] Vaccine (3+ yrs) 00:00:00 [facility] Influenza Virus 2021-05-27 Completed [facility] Vaccine (3+ yrs) 00:00:00 [facility] Influenza Virus 2021-05-27 Completed [facility] Vaccine (3+ yrs) 00:00:00 [facility] Influenza Virus 2021-05-27 Completed [facility] Vaccine (3+ yrs) 00:00:00 [facility] Influenza Virus 2021-05-27 Completed [facility]ine (3+ yrs) 00:00:00 [facility] Influenza Virus 2021-05-27 Completed [facility] Vaccine (3+ yrs) 00:00:00 [facility] Influenza Virus 2021-05-27 Completed [facility] Vaccine (3+ yrs) 00:00:00 [facility] Influenza Virus 2021-05-27 Completed [facility] Vaccine (3+ yrs) 00:00:00 [facility] Influenza Virus 2021-05-27 Completed [facility] Vaccine (3+ yrs) 00:00:00 [facility] Influenza Virus 2021-05-27 Completed [facility] Vaccine (3+ yrs) 00:00:00 [facility] Influenza Virus 2021-05-27 Completed [facility]ine (3+ yrs) 00:00:00 [facility] Influenza Virus 2021-05-27 Completed [facility] Vaccine (3+ yrs) 00:00:00 [facility] Influenza Virus 2021-05-27 Completed [facility] Vaccine (3+ yrs) 00:00:00 [facility] Influenza Virus 2021-05-27 Completed [facility] Vaccine (3+ yrs) 00:00:00 [facility] Influenza Virus 2021-05-27 Completed [facility] Vaccine (3+ yrs) 00:00:00 [facility] Influenza Virus 2021-05-27 Completed [facility]ine (3+ yrs) 00:00:00 [facility] Influenza Virus 2021-05-27 Completed [facility]ine (3+ yrs) 00:00:00 [facility] Influenza Virus 2021-05-27 Completed [facility]ine (3+ yrs) 00:00:00 [facility] Influenza Virus 2021-05-27 Completed [facility]ine (3+ yrs) 00:00:00 [facility] Influenza Virus 2021-05-27 Completed [facility]ine (3+ yrs) 00:00:00 [facility] Influenza Virus 2021-05-27 Completed [facility] Vaccine (3+ yrs) 00:00:00 [facility] Influenza Virus 2021-05-27 Completed [facility]ine (3+ yrs) 00:00:00 [facility] Influenza Virus 2021-05-27 Completed [facility]ine (3+ yrs) 00:00:00 [facility] Influenza Virus 2021-05-27 Completed [facility] Vaccine (3+ yrs) 00:00:00 [facility] Influenza Virus 2021-05-27 Completed [facility] Vaccine (3+ yrs) 00:00:00 [facility] Influenza Virus 2021-05-27 Completed [facility] Vaccine (3+ yrs) 00:00:00 [facility] Influenza Virus 2021-05-27 Completed [facility] Vaccine (3+ yrs) 00:00:00 [facility] Influenza Virus 2021-05-27 Completed [facility]ine (3+ yrs) 00:00:00 [facility] Influenza Virus 2021-05-27 Completed [facility] Vaccine (3+ yrs) 00:00:00 [facility] Influenza Virus 2021-05-27 Completed [facility]ine (3+ yrs) 00:00:00 [facility] Influenza Virus 2021-05-27 Completed [facility]ine (3+ yrs) 00:00:00 [facility] Influenza Virus 2021-05-27 Completed [facility]ine (3+ yrs) 00:00:00 [facility] Influenza Virus 2021-05-27 Completed [facility] Vaccine (3+ yrs) 00:00:00 [facility] Influenza Virus 2021-05-27 Completed [facility]ine (3+ yrs) 00:00:00 [facility] Influenza Virus 2021-05-27 Completed [facility]ine (3+ yrs) 00:00:00 [facility] Influenza Virus 2021-05-27 Completed [facility]ine (3+ yrs) 00:00:00 [facility] Influenza Virus 2021-05-27 Completed [facility]ine (3+ yrs) 00:00:00 [facility] Influenza Virus 2021-05-27 Completed [facility]ine (3+ yrs) 00:00:00 [facility] Influenza Virus 2021-05-27 Completed [facility] (3+ yrs) 00:00:00 [facility] Influenza Virus 2021-05-27 Completed [facility]ine (3+ yrs) 00:00:00 [facility] Influenza Virus 2021-05-27 Completed [facility]ine (3+ yrs) 00:00:00 [facility] Influenza Virus 2021-05-27 Completed [facility]ine (3+ yrs) 00:00:00 [facility] Influenza Virus 2021-05-27 Completed [facility]ine (3+ yrs) 00:00:00 [facility] Influenza Virus 2021-05-27 Completed [facility]ine (3+ yrs) 00:00:00 [facility] Influenza Virus 2021-05-27 Completed [facility]ine (3+ yrs) 00:00:00 [facility] Influenza Virus 2021-05-27 Completed [facility]ine (3+ yrs) 00:00:00 [facility] Influenza Virus 2021-05-27 Completed [facility]ine (3+ yrs) 00:00:00 [facility] Influenza Virus 2021-05-27 Completed [facility]ine (3+ yrs) 00:00:00 [facility] Influenza Virus 2021-05-27 Completed [facility] Vaccine (3+ yrs) 00:00:00 [facility] Influenza Virus 2021-05-27 Completed [facility]ine (3+ yrs) 00:00:00 [facility] Influenza Virus 2021-05-27 Completed [facility]ine (3+ yrs) 00:00:00 [facility] Influenza Virus 2021-05-27 Completed [facility]ine (3+ yrs) 00:00:00 [facility] Influenza Virus 2021-05-27 Completed [facility]ine (3+ yrs) 00:00:00 [facility] Influenza Virus 2021-05-27 Completed [facility]ine (3+ yrs) 00:00:00 [facility] Influenza Virus 2021-05-27 Completed [facility]ine (3+ yrs) 00:00:00 [facility] Influenza Virus 2021-05-27 Completed [facility] (3+ yrs) 00:00:00 [facility] Influenza Virus 2021-05-27 Completed [facility] Vaccine (3+ yrs) 00:00:00 [facility] Influenza Virus 2021-05-27 Completed [facility] Vaccine (3+ yrs) 00:00:00 [facility] Influenza Virus 2021-05-27 Completed [facility]ine (3+ yrs) 00:00:00 [facility] Influenza Virus 2021-05-27 Completed [facility]ine (3+ yrs) 00:00:00 [facility] Influenza Virus 2021-05-27 Completed [facility]ine (3+ yrs) 00:00:00 [facility] Influenza Virus 2021-05-27 Completed [facility]ine (3+ yrs) 00:00:00 [facility] Influenza Virus 2021-05-27 Completed [facility]ine (3+ yrs) 00:00:00 [facility] Influenza Virus 2021-05-27 Completed [facility]ine (3+ yrs) 00:00:00 [facility] Influenza Virus 2021-05-27 Completed [facility]ine (3+ yrs) 00:00:00 [facility] Influenza Virus 2021-05-27 Completed [facility]ine (3+ yrs) 00:00:00 [facility] Influenza Virus 2021-05-27 Completed [facility]ine (3+ yrs) 00:00:00 [facility] Influenza Virus 2021-05-27 Completed [facility]ine (3+ yrs) 00:00:00 [facility] Influenza Virus 2021-05-27 Completed [facility]ine (3+ yrs) 00:00:00 [facility] Influenza Virus 2021-05-27 Completed [facility]ine (3+ yrs) 00:00:00 [facility] Influenza Virus 2021-05-27 Completed [facility]ine (3+ yrs) 00:00:00 [facility] Influenza Virus 2021-05-27 Completed [facility]ine (3+ yrs) 00:00:00 [facility] Influenza Virus 2021-05-27 Completed [facility]ine (3+ yrs) 00:00:00 [facility] Influenza Virus 2021-05-27 Completed [facility]ine (3+ yrs) 00:00:00 [facility] Influenza Virus 2021-05-27 Completed [facility]ine (3+ yrs) 00:00:00 [facility] Influenza Virus 2021-05-27 Completed [facility]ine (3+ yrs) 00:00:00 [facility] Influenza Virus 2021-05-27 Completed [facility]ine (3+ yrs) 00:00:00 [facility] Influenza Virus 2021-05-27 Completed [facility]ine (3+ yrs) 00:00:00 [facility] Influenza Virus 2021-05-27 Completed [facility]ine (3+ yrs) 00:00:00 [facility] Influenza Virus 2021-05-27 Completed [facility]ine (3+ yrs) 00:00:00 [facility] Influenza Virus 2021-05-27 Completed [facility]ine (3+ yrs) 00:00:00 [facility] Influenza Virus 2021-05-27 Completed [facility]ine (3+ yrs) 00:00:00 [facility] Influenza Virus 2021-05-27 Completed [facility]ine (3+ yrs) 00:00:00 [facility] Influenza Virus 2021-05-27 Completed [facility]ine (3+ yrs) 00:00:00 [facility] Influenza Virus 2021-05-27 Completed [facility]ine (3+ yrs) 00:00:00 [facility] Influenza Virus 2021-05-27 Completed [facility]ine (3+ yrs) 00:00:00 [facility] Influenza Virus 2021-05-27 Completed [facility]ine (3+ yrs) 00:00:00 [facility] Influenza Virus 2021-05-27 Completed [facility]ine (3+ yrs) 00:00:00 [facility] Influenza Virus 2021-05-27 Completed [facility]ine (3+ yrs) 00:00:00 [facility] Influenza Virus 2021-05-27 Completed [facility]ine (3+ yrs) 00:00:00 [facility] Influenza Virus 2021-05-27 Completed [facility]ine (3+ yrs) 00:00:00 [facility] Influenza Virus 2021-05-27 Completed [facility]ine (3+ yrs) 00:00:00 [facility] Influenza Virus 2021-05-27 Completed [facility] Vaccine (3+ yrs) 00:00:00 [facility] Influenza Virus 2021-05-27 Completed [facility]ine (3+ yrs) 00:00:00 [facility] Influenza Virus 2021-05-27 Completed [facility]ine (3+ yrs) 00:00:00 [facility] Influenza Virus 2021-05-27 Completed [facility] Vaccine (3+ yrs) 00:00:00 [facility] Influenza Virus 2021-05-27 Completed [facility]ine (3+ yrs) 00:00:00 [facility] Influenza Virus 2021-05-27 Completed [facility]ine (3+ yrs) 00:00:00 [facility] Influenza Virus 2021-05-27 Completed [facility] Vaccine (3+ yrs) 00:00:00 [facility] Influenza Virus 2021-05-27 Completed [facility]ine (3+ yrs) 00:00:00 [facility] Influenza Virus 2021-05-27 Completed [facility]ine (3+ yrs) 00:00:00 [facility] Influenza Virus 2021-05-27 Completed [facility]ine (3+ yrs) 00:00:00 [facility] Influenza Virus 2021-05-27 Completed [facility]ine (3+ yrs) 00:00:00 [facility] Influenza Virus 2021-05-27 Completed [facility]ine (3+ yrs) 00:00:00 [facility] Influenza Virus 2021-05-27 Completed [facility]ine (3+ yrs) 00:00:00 [facility] Influenza Virus 2021-05-27 Completed [facility]ine (3+ yrs) 00:00:00 [facility] Influenza Virus 2021-05-27 Completed [facility]ine (3+ yrs) 00:00:00 [facility] Influenza Virus 2021-05-27 Completed [facility] (3+ yrs) 00:00:00 [facility] SARS-COV-2 COVID-19 2020-12-13 Completed [facility] PFIZER VACCINE 00:00:00 [facility] SARS-COV-2 COVID-19 2020-12-13 Completed [facility] PFIZER VACCINE 00:00:00 [facility] SARS-COV-2 COVID-19 2020-12-13 Completed [facility] PFIZER VACCINE 00:00:00 [facility] SARS-COV-2 COVID-19 2020-12-13 Completed [facility] PFIZER VACCINE 00:00:00 [facility] SARS-COV-2 COVID-19 2020-12-13 Completed [facility] PFIZER VACCINE 00:00:00 [facility] SARS-COV-2 COVID-19 2020-12-13 Completed [facility] PFIZER VACCINE 00:00:00 [facility] SARS-COV-2 COVID-19 2020-12-13 Completed [facility] PFIZER VACCINE 00:00:00 [facility] SARS-COV-2 COVID-19 2020-12-13 Completed [facility] PFIZER VACCINE 00:00:00 [facility] SARS-COV-2 COVID-19 2020-12-13 Completed [facility] PFIZER VACCINE 00:00:00 [facility] SARS-COV-2 COVID-19 2020-12-13 Completed [facility] PFIZER VACCINE 00:00:00 [facility] SARS-COV-2 COVID-19 2020-12-13 Completed [facility] PFIZER VACCINE 00:00:00 [facility] SARS-COV-2 COVID-19 2020-12-13 Completed [facility] PFIZER VACCINE 00:00:00 [facility] SARS-COV-2 COVID-19 2020-12-13 Completed [facility] PFIZER VACCINE 00:00:00 [facility] SARS-COV-2 COVID-19 2020-12-13 Completed [facility] PFIZER VACCINE 00:00:00 [facility] SARS-COV-2 COVID-19 2020-12-13 Completed [facility] PFIZER VACCINE 00:00:00 [facility] SARS-COV-2 COVID-19 2020-12-13 Completed [facility] PFIZER VACCINE 00:00:00 [facility] SARS-COV-2 COVID-19 2020-12-13 Completed [facility] PFIZER VACCINE 00:00:00 [facility] SARS-COV-2 COVID-19 2020-12-13 Completed [facility] PFIZER VACCINE 00:00:00 [facility] SARS-COV-2 COVID-19 2020-12-13 Completed [facility] PFIZER VACCINE 00:00:00 [facility] SARS-COV-2 COVID-19 2020-12-13 Completed [facility] PFIZER VACCINE 00:00:00 [facility] SARS-COV-2 COVID-19 2020-12-13 Completed [facility] PFIZER VACCINE 00:00:00 [facility] SARS-COV-2 COVID-19 2020-12-13 Completed [facility] PFIZER VACCINE 00:00:00 [facility] SARS-COV-2 COVID-19 2020-12-13 Completed [facility] PFIZER VACCINE 00:00:00 [facility] SARS-COV-2 COVID-19 2020-12-13 Completed [facility] PFIZER VACCINE 00:00:00 [facility] SARS-COV-2 COVID-19 2020-12-13 Completed [facility] PFIZER VACCINE 00:00:00 [facility] SARS-COV-2 COVID-19 2020-12-13 Completed [facility] PFIZER VACCINE 00:00:00 [facility] SARS-COV-2 COVID-19 2020-12-13 Completed [facility] PFIZER VACCINE 00:00:00 [facility] SARS-COV-2 COVID-19 2020-12-13 Completed [facility] PFIZER VACCINE 00:00:00 [facility] SARS-COV-2 COVID-19 2020-12-13 Completed [facility] PFIZER VACCINE 00:00:00 [facility] SARS-COV-2 COVID-19 2020-12-13 Completed [facility] PFIZER VACCINE 00:00:00 [facility] SARS-COV-2 COVID-19 2020-12-13 Completed [facility] PFIZER VACCINE 00:00:00 [facility] SARS-COV-2 COVID-19 2020-12-13 Completed [facility] PFIZER VACCINE 00:00:00 [facility] SARS-COV-2 COVID-19 2020-12-13 Completed [facility] PFIZER VACCINE 00:00:00 [facility] SARS-COV-2 COVID-19 2020-12-13 Completed [facility] PFIZER VACCINE 00:00:00 [facility] SARS-COV-2 COVID-19 2020-12-13 Completed [facility] PFIZER VACCINE 00:00:00 [facility] SARS-COV-2 COVID-19 2020-12-13 Completed [facility] PFIZER VACCINE 00:00:00 [facility] SARS-COV-2 COVID-19 2020-12-13 Completed [facility] PFIZER VACCINE 00:00:00 [facility] SARS-COV-2 COVID-19 2020-12-13 Completed [facility] PFIZER VACCINE 00:00:00 [facility] SARS-COV-2 COVID-19 2020-12-13 Completed [facility] PFIZER VACCINE 00:00:00 [facility] SARS-COV-2 COVID-19 2020-12-13 Completed [facility] PFIZER VACCINE 00:00:00 [facility] SARS-COV-2 COVID-19 2020-12-13 Completed [facility] PFIZER VACCINE 00:00:00 [facility] SARS-COV-2 COVID-19 2020-12-13 Completed [facility] PFIZER VACCINE 00:00:00 [facility] SARS-COV-2 COVID-19 2020-12-13 Completed [facility] PFIZER VACCINE 00:00:00 [facility] SARS-COV-2 COVID-19 2020-12-13 Completed [facility] PFIZER VACCINE 00:00:00 [facility] SARS-COV-2 COVID-19 2020-12-13 Completed [facility] PFIZER VACCINE 00:00:00 [facility] SARS-COV-2 COVID-19 2020-12-13 Completed [facility] PFIZER VACCINE 00:00:00 [facility] SARS-COV-2 COVID-19 2020-12-13 Completed [facility] PFIZER VACCINE 00:00:00 [facility] SARS-COV-2 COVID-19 2020-12-13 Completed [facility] PFIZER VACCINE 00:00:00 [facility] SARS-COV-2 COVID-19 2020-12-13 Completed [facility] PFIZER VACCINE 00:00:00 [facility] SARS-COV-2 COVID-19 2020-12-13 Completed [facility] PFIZER VACCINE 00:00:00 [facility] SARS-COV-2 COVID-19 2020-12-13 Completed [facility] PFIZER VACCINE 00:00:00 [facility] SARS-COV-2 COVID-19 2020-12-13 Completed [facility] PFIZER VACCINE 00:00:00 [facility] SARS-COV-2 COVID-19 2020-12-13 Completed [facility] PFIZER VACCINE 00:00:00 [facility] SARS-COV-2 COVID-19 2020-12-13 Completed [facility] PFIZER VACCINE 00:00:00 [facility] SARS-COV-2 COVID-19 2020-12-13 Completed [facility] PFIZER VACCINE 00:00:00 [facility] SARS-COV-2 COVID-19 2020-12-13 Completed [facility] PFIZER VACCINE 00:00:00 [facility] SARS-COV-2 COVID-19 2020-12-13 Completed [facility] PFIZER VACCINE 00:00:00 [facility] SARS-COV-2 COVID-19 2020-12-13 Completed [facility] PFIZER VACCINE 00:00:00 [facility] SARS-COV-2 COVID-19 2020-12-13 Completed [facility] PFIZER VACCINE 00:00:00 [facility] SARS-COV-2 COVID-19 2020-12-13 Completed [facility] PFIZER VACCINE 00:00:00 [facility] SARS-COV-2 COVID-19 2020-12-13 Completed [facility] PFIZER VACCINE 00:00:00 [facility] SARS-COV-2 COVID-19 2020-12-13 Completed [facility] PFIZER VACCINE 00:00:00 [facility] SARS-COV-2 COVID-19 2020-12-13 Completed [facility] PFIZER VACCINE 00:00:00 [facility] SARS-COV-2 COVID-19 2020-12-13 Completed [facility] PFIZER VACCINE 00:00:00 [facility] SARS-COV-2 COVID-19 2020-12-13 Completed [facility] PFIZER VACCINE 00:00:00 [facility] SARS-COV-2 COVID-19 2020-12-13 Completed [facility] PFIZER VACCINE 00:00:00 [facility] SARS-COV-2 COVID-19 2020-12-13 Completed [facility] PFIZER VACCINE 00:00:00 [facility] SARS-COV-2 COVID-19 2020-12-13 Completed [facility] PFIZER VACCINE 00:00:00 [facility] SARS-COV-2 COVID-19 2020-12-13 Completed [facility] PFIZER VACCINE 00:00:00 [facility] SARS-COV-2 COVID-19 2020-12-13 Completed [facility] PFIZER VACCINE 00:00:00 [facility] SARS-COV-2 COVID-19 2020-12-13 Completed [facility] PFIZER VACCINE 00:00:00 [facility] SARS-COV-2 COVID-19 2020-12-13 Completed [facility] PFIZER VACCINE 00:00:00 [facility] SARS-COV-2 COVID-19 2020-12-13 Completed [facility] PFIZER VACCINE 00:00:00 [facility] SARS-COV-2 COVID-19 2020-12-13 Completed [facility] PFIZER VACCINE 00:00:00 [facility] SARS-COV-2 COVID-19 2020-12-13 Completed [facility] PFIZER VACCINE 00:00:00 [facility] SARS-COV-2 COVID-19 2020-12-13 Completed [facility] PFIZER VACCINE 00:00:00 [facility] SARS-COV-2 COVID-19 2020-12-13 Completed [facility] PFIZER VACCINE 00:00:00 [facility] SARS-COV-2 COVID-19 2020-12-13 Completed [facility] PFIZER VACCINE 00:00:00 [facility] SARS-COV-2 COVID-19 2020-12-13 Completed [facility] PFIZER VACCINE 00:00:00 [facility] SARS-COV-2 COVID-19 2020-12-13 Completed [facility] PFIZER VACCINE 00:00:00 [facility] SARS-COV-2 COVID-19 2020-12-13 Completed [facility] PFIZER VACCINE 00:00:00 [facility] SARS-COV-2 COVID-19 2020-12-13 Completed [facility] PFIZER VACCINE 00:00:00 [facility] SARS-COV-2 COVID-19 2020-12-13 Completed [facility] PFIZER VACCINE 00:00:00 [facility] SARS-COV-2 COVID-19 2020-12-13 Completed [facility] PFIZER VACCINE 00:00:00 [facility] SARS-COV-2 COVID-19 2020-12-13 Completed [facility] PFIZER VACCINE 00:00:00 [facility] SARS-COV-2 COVID-19 2020-12-13 Completed [facility] PFIZER VACCINE 00:00:00 [facility] SARS-COV-2 COVID-19 2020-12-13 Completed [facility] PFIZER VACCINE 00:00:00 [facility] SARS-COV-2 COVID-19 2020-12-13 Completed [facility] PFIZER VACCINE 00:00:00 [facility] SARS-COV-2 COVID-19 2020-12-13 Completed [facility] PFIZER VACCINE 00:00:00 [facility] SARS-COV-2 COVID-19 2020-12-13 Completed [facility] PFIZER VACCINE 00:00:00 [facility] SARS-COV-2 COVID-19 2020-12-13 Completed [facility] PFIZER VACCINE 00:00:00 [facility] SARS-COV-2 COVID-19 2020-12-13 Completed [facility] PFIZER VACCINE 00:00:00 [facility] SARS-COV-2 COVID-19 2020-12-13 Completed [facility] PFIZER VACCINE 00:00:00 [facility] SARS-COV-2 COVID-19 2020-12-13 Completed [facility] PFIZER VACCINE 00:00:00 [facility] SARS-COV-2 COVID-19 2020-12-13 Completed [facility] PFIZER VACCINE 00:00:00 [facility] SARS-COV-2 COVID-19 2020-12-13 Completed [facility] PFIZER VACCINE 00:00:00 [facility] SARS-COV-2 COVID-19 2020-12-13 Completed [facility] PFIZER VACCINE 00:00:00 [facility] SARS-COV-2 COVID-19 2020-12-13 Completed [facility] PFIZER VACCINE 00:00:00 [facility] SARS-COV-2 COVID-19 2020-12-13 Completed [facility] PFIZER VACCINE 00:00:00 [facility] SARS-COV-2 COVID-19 2020-12-13 Completed [facility] PFIZER VACCINE 00:00:00 [facility] SARS-COV-2 COVID-19 2020-12-13 Completed [facility] PFIZER VACCINE 00:00:00 [facility] SARS-COV-2 COVID-19 2020-12-13 Completed [facility] PFIZER VACCINE 00:00:00 [facility] SARS-COV-2 COVID-19 2020-12-13 Completed [facility] PFIZER VACCINE 00:00:00 [facility] SARS-COV-2 COVID-19 2020-12-13 Completed [facility] PFIZER VACCINE 00:00:00 [facility] SARS-COV-2 COVID-19 2020-12-13 Completed [facility] PFIZER VACCINE 00:00:00 [facility] SARS-COV-2 COVID-19 2020-12-13 Completed [facility] PFIZER VACCINE 00:00:00 [facility] SARS-COV-2 COVID-19 2020-12-13 Completed [facility] PFIZER VACCINE 00:00:00 [facility] SARS-COV-2 COVID-19 2020-12-13 Completed [facility] PFIZER VACCINE 00:00:00 [facility] SARS-COV-2 COVID-19 2020-12-13 Completed [facility] PFIZER VACCINE 00:00:00 [facility] SARS-COV-2 COVID-19 2020-12-13 Completed [facility] PFIZER VACCINE 00:00:00 [facility] SARS-COV-2 COVID-19 2020-12-13 Completed [facility] PFIZER VACCINE 00:00:00 [facility] SARS-COV-2 COVID-19 2020-12-13 Completed [facility] PFIZER VACCINE 00:00:00 [facility] SARS-COV-2 COVID-19 2020-12-13 Completed [facility] PFIZER VACCINE 00:00:00 [facility] SARS-COV-2 COVID-19 2020-12-13 Completed [facility] PFIZER VACCINE 00:00:00 [facility] SARS-COV-2 COVID-19 2020-12-13 Completed [facility] PFIZER VACCINE 00:00:00 [facility] SARS-COV-2 COVID-19 2020-12-13 Completed [facility] PFIZER VACCINE 00:00:00 [facility] SARS-COV-2 COVID-19 2020-12-13 Completed [facility] PFIZER VACCINE 00:00:00 [facility] SARS-COV-2 COVID-19 2020-12-13 Completed [facility] PFIZER VACCINE 00:00:00 [facility] SARS-COV-2 COVID-19 2020-12-13 Completed [facility] PFIZER VACCINE 00:00:00 [facility] SARS-COV-2 COVID-19 2020-12-13 Completed [facility] PFIZER VACCINE 00:00:00 [facility] SARS-COV-2 COVID-19 2020-12-13 Completed [facility] PFIZER VACCINE 00:00:00 [facility] SARS-COV-2 COVID-19 2020-12-13 Completed [facility] PFIZER VACCINE 00:00:00 [facility] SARS-COV-2 COVID-19 2020-12-13 Completed [facility] PFIZER VACCINE 00:00:00 [facility] SARS-COV-2 COVID-19 2020-12-13 Completed [facility] PFIZER VACCINE 00:00:00 [facility] SARS-COV-2 COVID-19 2020-12-13 Completed [facility] PFIZER VACCINE 00:00:00 [facility] SARS-COV-2 COVID-19 2020-12-13 Completed [facility] PFIZER VACCINE 00:00:00 [facility] SARS-COV-2 COVID-19 2020-12-13 Completed [facility] PFIZER VACCINE 00:00:00 [facility] SARS-COV-2 COVID-19 2020-12-13 Completed [facility] PFIZER VACCINE 00:00:00 [facility] SARS-COV-2 COVID-19 2020-12-13 Completed [facility] PFIZER VACCINE 00:00:00 [facility] SARS-COV-2 COVID-19 2020-12-13 Completed [facility] PFIZER VACCINE 00:00:00 [facility] SARS-COV-2 COVID-19 2020-12-13 Completed [facility] PFIZER VACCINE 00:00:00 [facility] SARS-COV-2 COVID-19 2020-12-13 Completed [facility] PFIZER VACCINE 00:00:00 [facility] SARS-COV-2 COVID-19 2020-12-13 Completed [facility] PFIZER VACCINE 00:00:00 [facility] SARS-COV-2 COVID-19 2020-11-22 Completed [facility] PFIZER VACCINE 00:00:00 [facility] SARS-COV-2 COVID-19 2020-11-22 Completed [facility] PFIZER VACCINE 00:00:00 [facility] SARS-COV-2 COVID-19 2020-11-22 Completed [facility] PFIZER VACCINE 00:00:00 [facility] SARS-COV-2 COVID-19 2020-11-22 Completed [facility] PFIZER VACCINE 00:00:00 [facility] SARS-COV-2 COVID-19 2020-11-22 Completed [facility] PFIZER VACCINE 00:00:00 [facility] SARS-COV-2 COVID-19 2020-11-22 Completed [facility] PFIZER VACCINE 00:00:00 [facility] SARS-COV-2 COVID-19 2020-11-22 Completed [facility] PFIZER VACCINE 00:00:00 [facility] SARS-COV-2 COVID-19 2020-11-22 Completed [facility] PFIZER VACCINE 00:00:00 [facility] SARS-COV-2 COVID-19 2020-11-22 Completed [facility] PFIZER VACCINE 00:00:00 [facility] SARS-COV-2 COVID-19 2020-11-22 Completed [facility] PFIZER VACCINE 00:00:00 [facility] SARS-COV-2 COVID-19 2020-11-22 Completed [facility] PFIZER VACCINE 00:00:00 [facility] SARS-COV-2 COVID-19 2020-11-22 Completed [facility] PFIZER VACCINE 00:00:00 [facility] SARS-COV-2 COVID-19 2020-11-22 Completed [facility] PFIZER VACCINE 00:00:00 [facility] SARS-COV-2 COVID-19 2020-11-22 Completed [facility] PFIZER VACCINE 00:00:00 [facility] SARS-COV-2 COVID-19 2020-11-22 Completed [facility] PFIZER VACCINE 00:00:00 [facility] SARS-COV-2 COVID-19 2020-11-22 Completed [facility] PFIZER VACCINE 00:00:00 [facility] SARS-COV-2 COVID-19 2020-11-22 Completed [facility] PFIZER VACCINE 00:00:00 [facility] SARS-COV-2 COVID-19 2020-11-22 Completed [facility] PFIZER VACCINE 00:00:00 [facility] SARS-COV-2 COVID-19 2020-11-22 Completed [facility] PFIZER VACCINE 00:00:00 [facility] SARS-COV-2 COVID-19 2020-11-22 Completed [facility] PFIZER VACCINE 00:00:00 [facility] SARS-COV-2 COVID-19 2020-11-22 Completed [facility] PFIZER VACCINE 00:00:00 [facility] SARS-COV-2 COVID-19 2020-11-22 Completed [facility] PFIZER VACCINE 00:00:00 [facility] SARS-COV-2 COVID-19 2020-11-22 Completed [facility] PFIZER VACCINE 00:00:00 [facility] SARS-COV-2 COVID-19 2020-11-22 Completed [facility] PFIZER VACCINE 00:00:00 [facility] SARS-COV-2 COVID-19 2020-11-22 Completed [facility] PFIZER VACCINE 00:00:00 [facility] SARS-COV-2 COVID-19 2020-11-22 Completed [facility] PFIZER VACCINE 00:00:00 [facility] SARS-COV-2 COVID-19 2020-11-22 Completed [facility] PFIZER VACCINE 00:00:00 [facility] SARS-COV-2 COVID-19 2020-11-22 Completed [facility] PFIZER VACCINE 00:00:00 [facility] SARS-COV-2 COVID-19 2020-11-22 Completed [facility] PFIZER VACCINE 00:00:00 [facility] SARS-COV-2 COVID-19 2020-11-22 Completed [facility] PFIZER VACCINE 00:00:00 [facility] SARS-COV-2 COVID-19 2020-11-22 Completed [facility] PFIZER VACCINE 00:00:00 [facility] SARS-COV-2 COVID-19 2020-11-22 Completed [facility] PFIZER VACCINE 00:00:00 [facility] SARS-COV-2 COVID-19 2020-11-22 Completed [facility] PFIZER VACCINE 00:00:00 [facility] SARS-COV-2 COVID-19 2020-11-22 Completed [facility] PFIZER VACCINE 00:00:00 [facility] SARS-COV-2 COVID-19 2020-11-22 Completed [facility] PFIZER VACCINE 00:00:00 [facility] SARS-COV-2 COVID-19 2020-11-22 Completed [facility] PFIZER VACCINE 00:00:00 [facility] SARS-COV-2 COVID-19 2020-11-22 Completed [facility] PFIZER VACCINE 00:00:00 [facility] SARS-COV-2 COVID-19 2020-11-22 Completed [facility] PFIZER VACCINE 00:00:00 [facility] SARS-COV-2 COVID-19 2020-11-22 Completed [facility] PFIZER VACCINE 00:00:00 [facility] SARS-COV-2 COVID-19 2020-11-22 Completed [facility] PFIZER VACCINE 00:00:00 [facility] SARS-COV-2 COVID-19 2020-11-22 Completed [facility] PFIZER VACCINE 00:00:00 [facility] SARS-COV-2 COVID-19 2020-11-22 Completed [facility] PFIZER VACCINE 00:00:00 [facility] SARS-COV-2 COVID-19 2020-11-22 Completed [facility] PFIZER VACCINE 00:00:00 [facility] SARS-COV-2 COVID-19 2020-11-22 Completed [facility] PFIZER VACCINE 00:00:00 [facility] SARS-COV-2 COVID-19 2020-11-22 Completed [facility] PFIZER VACCINE 00:00:00 [facility] SARS-COV-2 COVID-19 2020-11-22 Completed [facility] PFIZER VACCINE 00:00:00 [facility] SARS-COV-2 COVID-19 2020-11-22 Completed [facility] PFIZER VACCINE 00:00:00 [facility] SARS-COV-2 COVID-19 2020-11-22 Completed [facility] PFIZER VACCINE 00:00:00 [facility] SARS-COV-2 COVID-19 2020-11-22 Completed [facility] PFIZER VACCINE 00:00:00 [facility] SARS-COV-2 COVID-19 2020-11-22 Completed [facility] PFIZER VACCINE 00:00:00 [facility] SARS-COV-2 COVID-19 2020-11-22 Completed [facility] PFIZER VACCINE 00:00:00 [facility] SARS-COV-2 COVID-19 2020-11-22 Completed [facility] PFIZER VACCINE 00:00:00 [facility] SARS-COV-2 COVID-19 2020-11-22 Completed [facility] PFIZER VACCINE 00:00:00 [facility] SARS-COV-2 COVID-19 2020-11-22 Completed [facility] PFIZER VACCINE 00:00:00 [facility] SARS-COV-2 COVID-19 2020-11-22 Completed [facility] PFIZER VACCINE 00:00:00 [facility] SARS-COV-2 COVID-19 2020-11-22 Completed [facility] PFIZER VACCINE 00:00:00 [facility] SARS-COV-2 COVID-19 2020-11-22 Completed [facility] PFIZER VACCINE 00:00:00 [facility] SARS-COV-2 COVID-19 2020-11-22 Completed [facility] PFIZER VACCINE 00:00:00 [facility] SARS-COV-2 COVID-19 2020-11-22 Completed [facility] PFIZER VACCINE 00:00:00 [facility] SARS-COV-2 COVID-19 2020-11-22 Completed [facility] PFIZER VACCINE 00:00:00 [facility] SARS-COV-2 COVID-19 2020-11-22 Completed [facility] PFIZER VACCINE 00:00:00 [facility] SARS-COV-2 COVID-19 2020-11-22 Completed [facility] PFIZER VACCINE 00:00:00 [facility] SARS-COV-2 COVID-19 2020-11-22 Completed [facility] PFIZER VACCINE 00:00:00 [facility] SARS-COV-2 COVID-19 2020-11-22 Completed [facility] PFIZER VACCINE 00:00:00 [facility] SARS-COV-2 COVID-19 2020-11-22 Completed [facility] PFIZER VACCINE 00:00:00 [facility] SARS-COV-2 COVID-19 2020-11-22 Completed [facility] PFIZER VACCINE 00:00:00 [facility] SARS-COV-2 COVID-19 2020-11-22 Completed [facility] PFIZER VACCINE 00:00:00 [facility] SARS-COV-2 COVID-19 2020-11-22 Completed [facility] PFIZER VACCINE 00:00:00 [facility] SARS-COV-2 COVID-19 2020-11-22 Completed [facility] PFIZER VACCINE 00:00:00 [facility] SARS-COV-2 COVID-19 2020-11-22 Completed [facility] PFIZER VACCINE 00:00:00 [facility] SARS-COV-2 COVID-19 2020-11-22 Completed [facility] PFIZER VACCINE 00:00:00 [facility] SARS-COV-2 COVID-19 2020-11-22 Completed [facility] PFIZER VACCINE 00:00:00 [facility] SARS-COV-2 COVID-19 2020-11-22 Completed [facility] PFIZER VACCINE 00:00:00 [facility] SARS-COV-2 COVID-19 2020-11-22 Completed [facility] PFIZER VACCINE 00:00:00 [facility] SARS-COV-2 COVID-19 2020-11-22 Completed [facility] PFIZER VACCINE 00:00:00 [facility] SARS-COV-2 COVID-19 2020-11-22 Completed [facility] PFIZER VACCINE 00:00:00 [facility] SARS-COV-2 COVID-19 2020-11-22 Completed [facility] PFIZER VACCINE 00:00:00 [facility] SARS-COV-2 COVID-19 2020-11-22 Completed [facility] PFIZER VACCINE 00:00:00 [facility] SARS-COV-2 COVID-19 2020-11-22 Completed [facility] PFIZER VACCINE 00:00:00 [facility] SARS-COV-2 COVID-19 2020-11-22 Completed [facility] PFIZER VACCINE 00:00:00 [facility] SARS-COV-2 COVID-19 2020-11-22 Completed [facility] PFIZER VACCINE 00:00:00 [facility] SARS-COV-2 COVID-19 2020-11-22 Completed [facility] PFIZER VACCINE 00:00:00 [facility] SARS-COV-2 COVID-19 2020-11-22 Completed [facility] PFIZER VACCINE 00:00:00 [facility] SARS-COV-2 COVID-19 2020-11-22 Completed [facility] PFIZER VACCINE 00:00:00 [facility] SARS-COV-2 COVID-19 2020-11-22 Completed [facility] PFIZER VACCINE 00:00:00 [facility] SARS-COV-2 COVID-19 2020-11-22 Completed [facility] PFIZER VACCINE 00:00:00 [facility] SARS-COV-2 COVID-19 2020-11-22 Completed [facility] PFIZER VACCINE 00:00:00 [facility] SARS-COV-2 COVID-19 2020-11-22 Completed [facility] PFIZER VACCINE 00:00:00 [facility] SARS-COV-2 COVID-19 2020-11-22 Completed [facility] PFIZER VACCINE 00:00:00 [facility] SARS-COV-2 COVID-19 2020-11-22 Completed [facility] PFIZER VACCINE 00:00:00 [facility] SARS-COV-2 COVID-19 2020-11-22 Completed [facility] PFIZER VACCINE 00:00:00 [facility] SARS-COV-2 COVID-19 2020-11-22 Completed [facility] PFIZER VACCINE 00:00:00 [facility] SARS-COV-2 COVID-19 2020-11-22 Completed [facility] PFIZER VACCINE 00:00:00 [facility] SARS-COV-2 COVID-19 2020-11-22 Completed [facility] PFIZER VACCINE 00:00:00 [facility] SARS-COV-2 COVID-19 2020-11-22 Completed [facility] PFIZER VACCINE 00:00:00 [facility] SARS-COV-2 COVID-19 2020-11-22 Completed [facility] PFIZER VACCINE 00:00:00 [facility] SARS-COV-2 COVID-19 2020-11-22 Completed [facility] PFIZER VACCINE 00:00:00 [facility] SARS-COV-2 COVID-19 2020-11-22 Completed [facility] PFIZER VACCINE 00:00:00 [facility] SARS-COV-2 COVID-19 2020-11-22 Completed [facility] PFIZER VACCINE 00:00:00 [facility] SARS-COV-2 COVID-19 2020-11-22 Completed [facility] PFIZER VACCINE 00:00:00 [facility] SARS-COV-2 COVID-19 2020-11-22 Completed [facility] PFIZER VACCINE 00:00:00 [facility] SARS-COV-2 COVID-19 2020-11-22 Completed [facility] PFIZER VACCINE 00:00:00 [facility] SARS-COV-2 COVID-19 2020-11-22 Completed [facility] PFIZER VACCINE 00:00:00 [facility] SARS-COV-2 COVID-19 2020-11-22 Completed [facility] PFIZER VACCINE 00:00:00 [facility] SARS-COV-2 COVID-19 2020-11-22 Completed [facility] PFIZER VACCINE 00:00:00 [facility] SARS-COV-2 COVID-19 2020-11-22 Completed [facility] PFIZER VACCINE 00:00:00 [facility] SARS-COV-2 COVID-19 2020-11-22 Completed [facility] PFIZER VACCINE 00:00:00 [facility] SARS-COV-2 COVID-19 2020-11-22 Completed [facility] PFIZER VACCINE 00:00:00 [facility] SARS-COV-2 COVID-19 2020-11-22 Completed [facility] PFIZER VACCINE 00:00:00 [facility] SARS-COV-2 COVID-19 2020-11-22 Completed [facility] PFIZER VACCINE 00:00:00 [facility] SARS-COV-2 COVID-19 2020-11-22 Completed [facility] PFIZER VACCINE 00:00:00 [facility] SARS-COV-2 COVID-19 2020-11-22 Completed [facility] PFIZER VACCINE 00:00:00 [facility] SARS-COV-2 COVID-19 2020-11-22 Completed [facility] PFIZER VACCINE 00:00:00 [facility] SARS-COV-2 COVID-19 2020-11-22 Completed [facility] PFIZER VACCINE 00:00:00 [facility] SARS-COV-2 COVID-19 2020-11-22 Completed [facility] PFIZER VACCINE 00:00:00 [facility] SARS-COV-2 COVID-19 2020-11-22 Completed [facility] PFIZER VACCINE 00:00:00 [facility] SARS-COV-2 COVID-19 2020-11-22 Completed [facility] PFIZER VACCINE 00:00:00 [facility] SARS-COV-2 COVID-19 2020-11-22 Completed [facility] PFIZER VACCINE 00:00:00 [facility] SARS-COV-2 COVID-19 2020-11-22 Completed [facility] PFIZER VACCINE 00:00:00 [facility] SARS-COV-2 COVID-19 2020-11-22 Completed [facility] PFIZER VACCINE 00:00:00 [facility] SARS-COV-2 COVID-19 2020-11-22 Completed [facility] PFIZER VACCINE 00:00:00 [facility] SARS-COV-2 COVID-19 2020-11-22 Completed [facility] PFIZER VACCINE 00:00:00 [facility] SARS-COV-2 COVID-19 2020-11-22 Completed [facility] PFIZER VACCINE 00:00:00 [facility] SARS-COV-2 COVID-19 2020-11-22 Completed [facility] PFIZER VACCINE 00:00:00 [facility] SARS-COV-2 COVID-19 2020-11-22 Completed [facility] PFIZER VACCINE 00:00:00 [facility] SARS-COV-2 COVID-19 2020-11-22 Completed [facility] PFIZER VACCINE 00:00:00 [facility] SARS-COV-2 COVID-19 2020-11-22 Completed [facility] PFIZER VACCINE 00:00:00 [facility] SARS-COV-2 COVID-19 2020-11-22 Completed [facility] PFIZER VACCINE 00:00:00 [facility] SARS-COV-2 COVID-19 2020-11-22 Completed [facility] PFIZER VACCINE 00:00:00 [facility] SARS-COV-2 COVID-19 2020-11-22 Completed [facility] PFIZER VACCINE 00:00:00 [facility] SARS-COV-2 COVID-19 2020-11-22 Completed [facility] PFIZER VACCINE 00:00:00 [facility] SARS-COV-2 COVID-19 2020-11-22 Completed [facility] PFIZER VACCINE 00:00:00 [facility] SARS-COV-2 COVID-19 2020-11-22 Completed [facility] PFIZER VACCINE 00:00:00 [facility] Influenza Virus 2020-05-27 Completed [facility] [...] h Free 18-64 YRS Pneumococcal 2019-08-10 Completed [place] o f Polysaccharide, 00:00:00 [facility] PPSV23 (PNEUMOVAX) Branch TDAP (ADACEL) 2019-08-10 Completed [place] of VACCINE 00:00:[address] [facility] TDAP 2019-08-10 Completed [facility] of 00:00:[address] [facility] Pneumococcal 2019-08-10 Completed [facility] o f Polysaccharide, 00:00:00 [place] [facility] PPSV23 (PNEUMOVAX) [facility] TDAP (ADACEL) 2019-08-10 Completed [facility] of VACCINE 00:00:[address] [facility] TDAP 2019-08-10 Completed [facility] 00:00:[address] [facility] Pneumococcal 2019-08-10 Completed [facility] o f Polysaccharide, 00:00:00 [place] [facility] PPSV23 (PNEUMOVAX) Branch TDAP (ADACEL) 2019-08-10 Completed [facility] of VACCINE 00:00:[address] [facility] TDAP 2019-08-10 Completed [facility] 00:00:[address] [facility] Pneumococcal 2019-08-10 Completed [facility] o f Polysaccharide, 00:00:00 [place] [facility] PPSV23 (PNEUMOVAX) Branch TDAP (ADACEL) 2019-08-10 Completed [facility] of VACCINE 00:00:[address] [facility] TDAP 2019-08-10 Completed [facility] 00:00:[address] [facility] Pneumococcal 2019-08-10 Completed [facility] o f Polysaccharide, 00:00:00 [place] [facility] PPSV23 (PNEUMOVAX) Branch TDAP (ADACEL) 2019-08-10 Completed [facility] of VACCINE 00:00:[address] [facility] TDAP 2019-08-10 Completed [facility] 00:00:[address] [facility] Pneumococcal 2019-08-10 Completed [facility] o f Polysaccharide, 00:00:00 [place] [facility] PPSV23 (PNEUMOVAX) Branch TDAP (ADACEL) 2019-08-10 Completed [facility] of VACCINE 00:00:[address] [facility] TDAP 2019-08-10 Completed [facility] 00:00:[address] [facility] Pneumococcal 2019-08-10 Completed [facility] o f Polysaccharide, 00:00:00 [place] [facility] PPSV23 (PNEUMOVAX) Branch TDAP (ADACEL) 2019-08-10 Completed [facility] of VACCINE 00:00:[address] [facility] TDAP 2019-08-10 Completed [facility] of 00:00:[address] [facility] Pneumococcal 2019-08-10 Completed [facility] o f Polysaccharide, 00:00:00 [place] [facility] PPSV23 (PNEUMOVAX) Branch TDAP (ADACEL) 2019-08-10 Completed [facility] of VACCINE 00:00:[address] [facility] TDAP 2019-08-10 Completed [facility] of 00:00:[address] [facility] Pneumococcal 2019-08-10 Completed [facility] o f Polysaccharide, 00:00:00 [place] [facility] PPSV23 (PNEUMOVAX) Branch TDAP (ADACEL) 2019-08-10 Completed [facility] of VACCINE 00:00:[address] [facility] TDAP 2019-08-10 Completed [facility] of 00:00:[address] [facility] Pneumococcal 2019-08-10 Completed [facility] o f Polysaccharide, 00:00:00 [place] [facility] PPSV23 (PNEUMOVAX) Branch TDAP (ADACEL) 2019-08-10 Completed [facility] of VACCINE 00:00:[address] [facility] TDAP 2019-08-10 Completed [facility] of 00:00:[address] [facility] Pneumococcal 2019-08-10 Completed [facility] o f Polysaccharide, 00:00:00 [place] [facility] PPSV23 (PNEUMOVAX) Branch TDAP (ADACEL) 2019-08-10 Completed [facility] of VACCINE 00:00:[address] [facility] TDAP 2019-08-10 Completed [facility] of 00:00:[address] [facility] Pneumococcal 2019-08-10 Completed [facility] o f Polysaccharide, 00:00:00 [place] [facility] PPSV23 (PNEUMOVAX) Branch TDAP (ADACEL) 2019-08-10 Completed [facility] of VACCINE 00:00:[address] [facility] TDAP 2019-08-10 Completed [facility] of 00:00:[address] [facility] Pneumococcal 2019-08-10 Completed [facility] o f Polysaccharide, 00:00:00 [place] [facility] PPSV23 (PNEUMOVAX) Branch TDAP (ADACEL) 2019-08-10 Completed [facility] of VACCINE 00:00:[address] [facility] TDAP 2019-08-10 Completed [facility] of 00:00:[address] [facility] Pneumococcal 2019-08-10 Completed [facility] o f Polysaccharide, 00:00:00 [place] [facility] PPSV23 (PNEUMOVAX) Branch TDAP (ADACEL) 2019-08-10 Completed [facility] of VACCINE 00:00:[address] [facility] TDAP 2019-08-10 Completed [facility] of 00:00:[address] [facility] Pneumococcal 2019-08-10 Completed [facility] o f Polysaccharide, 00:00:00 [place] [facility] PPSV23 (PNEUMOVAX) Branch TDAP (ADACEL) 2019-08-10 Completed [facility] of VACCINE 00:00:[address] [facility] TDAP 2019-08-10 Completed [facility] of 00:00:[address] [facility] Pneumococcal 2019-08-10 Completed [facility] o f Polysaccharide, 00:00:00 [place] [facility] PPSV23 (PNEUMOVAX) Branch TDAP (ADACEL) 2019-08-10 Completed [facility] of VACCINE 00:00:[address] [facility] TDAP 2019-08-10 Completed [facility] of 00:00:[address] [facility] Pneumococcal 2019-08-10 Completed [facility] o f Polysaccharide, 00:00:00 [place] [facility] PPSV23 (PNEUMOVAX) Branch TDAP (ADACEL) 2019-08-10 Completed [facility] of VACCINE 00:00:[address] [facility] TDAP 2019-08-10 Completed [facility] of 00:00:[address] [facility] Pneumococcal 2019-08-10 Completed [facility] o f Polysaccharide, 00:00:00 [place] [facility] PPSV23 (PNEUMOVAX) Branch TDAP (ADACEL) 2019-08-10 Completed [facility] of VACCINE 00:00:[address] [facility] TDAP 2019-08-10 Completed [facility] of 00:00:[address] [facility] Pneumococcal 2019-08-10 Completed [facility] o f Polysaccharide, 00:00:00 [place] [facility] PPSV23 (PNEUMOVAX) Branch TDAP (ADACEL) 2019-08-10 Completed [facility] of VACCINE 00:00:[address] [facility] TDAP 2019-08-10 Completed [facility] of 00:00:[address] [facility] Pneumococcal 2019-08-10 Completed [facility] o f Polysaccharide, 00:00:00 [place] [facility] PPSV23 (PNEUMOVAX) Branch TDAP (ADACEL) 2019-08-10 Completed [facility] of VACCINE 00:00:[address] [facility] TDAP 2019-08-10 Completed [facility] of 00:00:[address] [facility] Pneumococcal 2019-08-10 Completed [facility] o f Polysaccharide, 00:00:00 [place] [facility] PPSV23 (PNEUMOVAX) Branch TDAP (ADACEL) 2019-08-10 Completed [facility] of VACCINE 00:00:[address] [facility] TDAP 2019-08-10 Completed [facility] of 00:00:[address] [facility] Pneumococcal 2019-08-10 Completed [facility] o f Polysaccharide, 00:00:00 [place] [facility] PPSV23 (PNEUMOVAX) Branch TDAP (ADACEL) 2019-08-10 Completed [facility] of VACCINE 00:00:[address] [facility] TDAP 2019-08-10 Completed [facility] of 00:00:[address] [facility] Pneumococcal 2019-08-10 Completed [facility] o f Polysaccharide, 00:00:00 [place] [facility] PPSV23 (PNEUMOVAX) Branch TDAP (ADACEL) 2019-08-10 Completed [facility] of VACCINE 00:00:[address] [facility] TDAP 2019-08-10 Completed [facility] of 00:00:[address] [facility] Pneumococcal 2019-08-10 Completed [facility] o f Polysaccharide, 00:00:00 [place] [facility] PPSV23 (PNEUMOVAX) Branch TDAP (ADACEL) 2019-08-10 Completed [facility] of VACCINE 00:00:[address] [facility] TDAP 2019-08-10 Completed [facility] of 00:00:[address] [facility] Pneumococcal 2019-08-10 Completed [facility] o f Polysaccharide, 00:00:00 [place] [facility] PPSV23 (PNEUMOVAX) Branch TDAP (ADACEL) 2019-08-10 Completed [facility] of VACCINE 00:00:[address] [facility] TDAP 2019-08-10 Completed [facility] of 00:00:[address] [facility] Pneumococcal 2019-08-10 Completed [facility] o f Polysaccharide, 00:00:00 [place] [facility] PPSV23 (PNEUMOVAX) Branch TDAP (ADACEL) 2019-08-10 Completed [facility] of VACCINE 00:00:[address] [facility] TDAP 2019-08-10 Completed [facility] of 00:00:[address] [facility] Pneumococcal 2019-08-10 Completed [facility] o f Polysaccharide, 00:00:00 [place] [facility] PPSV23 (PNEUMOVAX) Branch TDAP (ADACEL) 2019-08-10 Completed [facility] of VACCINE 00:00:[address] [facility] TDAP 2019-08-10 Completed [facility] of 00:00:[address] [facility] Pneumococcal 2019-08-10 Completed [facility] o f Polysaccharide, 00:00:00 [place] [facility] PPSV23 (PNEUMOVAX) Branch TDAP (ADACEL) 2019-08-10 Completed [facility] of VACCINE 00:00:[address] [facility] TDAP 2019-08-10 Completed [facility] of 00:00:[address] [facility] Pneumococcal 2019-08-10 Completed [facility] o f Polysaccharide, 00:00:00 [place] [facility] PPSV23 (PNEUMOVAX) Branch TDAP (ADACEL) 2019-08-10 Completed [facility] of VACCINE 00:00:[address] [facility] TDAP 2019-08-10 Completed [facility] of 00:00:[address] [facility] Pneumococcal 2019-08-10 Completed [facility] o f Polysaccharide, 00:00:00 [place] [facility] PPSV23 (PNEUMOVAX) Branch TDAP (ADACEL) 2019-08-10 Completed [facility] of VACCINE 00:00:[address] [facility] TDAP 2019-08-10 Completed [facility] of 00:00:[address] [facility] Pneumococcal 2019-08-10 Completed [facility] o f Polysaccharide, 00:00:00 [place] [facility] PPSV23 (PNEUMOVAX) Branch TDAP (ADACEL) 2019-08-10 Completed [facility] of VACCINE 00:00:[address] [facility] TDAP 2019-08-10 Completed [facility] of 00:00:[address] [facility] Pneumococcal 2019-08-10 Completed [facility] o f Polysaccharide, 00:00:00 [place] [facility] PPSV23 (PNEUMOVAX) Branch TDAP (ADACEL) 2019-08-10 Completed [facility] of VACCINE 00:00:[address] [facility] TDAP 2019-08-10 Completed [facility] of 00:00:[address] [facility] Pneumococcal 2019-08-10 Completed [facility] o f Polysaccharide, 00:00:00 [place] [facility] PPSV23 (PNEUMOVAX) Branch TDAP (ADACEL) 2019-08-10 Completed [facility] of VACCINE 00:00:[address] [facility] TDAP 2019-08-10 Completed [facility] of 00:00:[address] [facility] Pneumococcal 2019-08-10 Completed [facility] o f Polysaccharide, 00:00:00 [place] [facility] PPSV23 (PNEUMOVAX) Branch TDAP (ADACEL) 2019-08-10 Completed [facility] of VACCINE 00:00:[address] [facility] TDAP 2019-08-10 Completed [facility] of 00:00:[address] [facility] Pneumococcal 2019-08-10 Completed [facility] o f Polysaccharide, 00:00:00 [place] [facility] PPSV23 (PNEUMOVAX) Branch TDAP (ADACEL) 2019-08-10 Completed [facility] of VACCINE 00:00:[address] [facility] TDAP 2019-08-10 Completed [facility] of 00:00:[address] [facility] Pneumococcal 2019-08-10 Completed [facility] o f Polysaccharide, 00:00:00 [place] [facility] PPSV23 (PNEUMOVAX) Branch TDAP (ADACEL) 2019-08-10 Completed [facility] of VACCINE 00:00:[address] [facility] TDAP 2019-08-10 Completed [facility] of 00:00:[address] [facility] Pneumococcal 2019-08-10 Completed [facility] o f Polysaccharide, 00:00:00 [place] [facility] PPSV23 (PNEUMOVAX) Branch TDAP (ADACEL) 2019-08-10 Completed [facility] of VACCINE 00:00:[address] [facility] TDAP 2019-08-10 Completed [facility] of 00:00:[address] [facility] Pneumococcal 2019-08-10 Completed [facility] o f Polysaccharide, 00:00:00 [place] [facility] PPSV23 (PNEUMOVAX) Branch TDAP (ADACEL) 2019-08-10 Completed [facility] of VACCINE 00:00:[address] [facility] TDAP 2019-08-10 Completed [facility] of 00:00:[address] [facility] Pneumococcal 2019-08-10 Completed [facility] o f Polysaccharide, 00:00:00 [place] [facility] PPSV23 (PNEUMOVAX) Branch TDAP (ADACEL) 2019-08-10 Completed [facility] of VACCINE 00:00:[address] [facility] TDAP 2019-08-10 Completed [facility] of 00:00:[address] [facility] Pneumococcal 2019-08-10 Completed [facility] o f Polysaccharide, 00:00:00 [place] [facility] PPSV23 (PNEUMOVAX) Branch TDAP (ADACEL) 2019-08-10 Completed [facility] of VACCINE 00:00:[address] [facility] TDAP 2019-08-10 Completed [facility] of 00:00:[address] [facility] Pneumococcal 2019-08-10 Completed [facility] o f Polysaccharide, 00:00:00 [place] [facility] PPSV23 (PNEUMOVAX) Branch TDAP (ADACEL) 2019-08-10 Completed [facility] of VACCINE 00:00:[address] [facility] TDAP 2019-08-10 Completed [facility] of 00:00:[address] [facility] Pneumococcal 2019-08-10 Completed [facility] o f Polysaccharide, 00:00:00 [place] [facility] PPSV23 (PNEUMOVAX) Branch TDAP (ADACEL) 2019-08-10 Completed [facility] of VACCINE 00:00:[address] [facility] TDAP 2019-08-10 Completed [facility] of 00:00:[address] [facility] Pneumococcal 2019-08-10 Completed [facility] o f Polysaccharide, 00:00:00 [place] [facility] PPSV23 (PNEUMOVAX) Branch TDAP (ADACEL) 2019-08-10 Completed [facility] of VACCINE 00:00:[address] [facility] TDAP 2019-08-10 Completed [facility] of 00:00:[address] [facility] Pneumococcal 2019-08-10 Completed [facility] o f Polysaccharide, 00:00:00 [place] [facility] PPSV23 (PNEUMOVAX) Branch TDAP (ADACEL) 2019-08-10 Completed [facility] of VACCINE 00:00:[address] [facility] TDAP 2019-08-10 Completed [facility] of 00:00:[address] [facility] Pneumococcal 2019-08-10 Completed [facility] o f Polysaccharide, 00:00:00 [place] [facility] PPSV23 (PNEUMOVAX) Branch TDAP (ADACEL) 2019-08-10 Completed [facility] of VACCINE 00:00:[address] [facility] TDAP 2019-08-10 Completed [facility] of 00:00:[address] [facility] Pneumococcal 2019-08-10 Completed [facility] o f Polysaccharide, 00:00:00 [place] [facility] PPSV23 (PNEUMOVAX) Branch TDAP (ADACEL) 2019-08-10 Completed [facility] of VACCINE 00:00:[address] [facility] TDAP 2019-08-10 Completed [facility] of 00:00:[address] [facility] Pneumococcal 2019-08-10 Completed [facility] o f Polysaccharide, 00:00:00 [place] [facility] PPSV23 (PNEUMOVAX) Branch TDAP (ADACEL) 2019-08-10 Completed [facility] of VACCINE 00:00:[address] [facility] TDAP 2019-08-10 Completed [facility] of 00:00:[address] [facility] Pneumococcal 2019-08-10 Completed [facility] o f Polysaccharide, 00:00:00 [place] [facility] PPSV23 (PNEUMOVAX) Branch TDAP (ADACEL) 2019-08-10 Completed [facility] of VACCINE 00:00:[address] [facility] TDAP 2019-08-10 Completed [facility] of 00:00:[address] [facility] Pneumococcal 2019-08-10 Completed [facility] o f Polysaccharide, 00:00:00 [place] [facility] PPSV23 (PNEUMOVAX) Branch TDAP (ADACEL) 2019-08-10 Completed [facility] of VACCINE 00:00:[address] [facility] TDAP 2019-08-10 Completed [facility] of 00:00:[address] [facility] Pneumococcal 2019-08-10 Completed [facility] o f Polysaccharide, 00:00:00 [place] [facility] PPSV23 (PNEUMOVAX) Branch TDAP (ADACEL) 2019-08-10 Completed [facility] of VACCINE 00:00:[address] [facility] TDAP 2019-08-10 Completed [facility] of 00:00:[address] [facility] Pneumococcal 2019-08-10 Completed [facility] o f Polysaccharide, 00:00:00 [place] [facility] PPSV23 (PNEUMOVAX) Branch TDAP (ADACEL) 2019-08-10 Completed [facility] VACCINE 00:00:00 [facility] TDAP 2019-08-10 Completed [facility] of 00:00:[address] [facility] Pneumococcal 2019-08-10 Completed [facility] o f Polysaccharide, 00:00:00 [place] [facility] PPSV23 (PNEUMOVAX) Branch TDAP (ADACEL) 2019-08-10 Completed [facility] of VACCINE 00:00:[address] [facility] TDAP 2019-08-10 Completed [facility] of 00:00:[address] [facility] Pneumococcal 2019-08-10 Completed [facility] o f Polysaccharide, 00:00:00 [place] [facility] PPSV23 (PNEUMOVAX) Branch TDAP (ADACEL) 2019-08-10 Completed [facility] of VACCINE 00:00:[address] [facility] TDAP 2019-08-10 Completed [facility] of 00:00:[address] [facility] Pneumococcal 2019-08-10 Completed [facility] o f Polysaccharide, 00:00:00 [place] [facility] PPSV23 (PNEUMOVAX) Branch TDAP (ADACEL) 2019-08-10 Completed [facility] of VACCINE 00:00:[address] [facility] TDAP 2019-08-10 Completed [facility] of 00:00:[address] [facility] Pneumococcal 2019-08-10 Completed [facility] o f Polysaccharide, 00:00:00 [place] [facility] PPSV23 (PNEUMOVAX) Branch TDAP (ADACEL) 2019-08-10 Completed [facility] of VACCINE 00:00:[address] [facility] TDAP 2019-08-10 Completed [facility] of 00:00:[address] [facility] Pneumococcal 2019-08-10 Completed [facility] o f Polysaccharide, 00:00:00 [place] [facility] PPSV23 (PNEUMOVAX) Branch TDAP (ADACEL) 2019-08-10 Completed [facility] of VACCINE 00:00:[address] [facility] TDAP 2019-08-10 Completed [facility] of 00:00:[address] [facility] Pneumococcal 2019-08-10 Completed [facility] o f Polysaccharide, 00:00:00 [place] [facility] PPSV23 (PNEUMOVAX) Branch TDAP (ADACEL) 2019-08-10 Completed [facility] of VACCINE 00:00:[address] [facility] TDAP 2019-08-10 Completed [facility] of 00:00:[address] [facility] Pneumococcal 2019-08-10 Completed [facility] o f Polysaccharide, 00:00:00 [place] [facility] PPSV23 (PNEUMOVAX) Branch TDAP (ADACEL) 2019-08-10 Completed [facility] VACCINE 00:00:00 [facility] TDAP 2019-08-10 Completed [facility] of 00:00:[address] [facility] Pneumococcal 2019-08-10 Completed [facility] o f Polysaccharide, 00:00:00 [place] [facility] PPSV23 (PNEUMOVAX) Branch TDAP (ADACEL) 2019-08-10 Completed [facility] of VACCINE 00:00:[address] [facility] TDAP 2019-08-10 Completed [facility] of 00:00:[address] [facility] Pneumococcal 2019-08-10 Completed [facility] o f Polysaccharide, 00:00:00 [place] [facility] PPSV23 (PNEUMOVAX) Branch TDAP (ADACEL) 2019-08-10 Completed [facility] of VACCINE 00:00:[address] [facility] TDAP 2019-08-10 Completed [facility] of 00:00:[address] [facility] Pneumococcal 2019-08-10 Completed [facility] o f Polysaccharide, 00:00:00 [place] [facility] PPSV23 (PNEUMOVAX) Branch TDAP (ADACEL) 2019-08-10 Completed [facility] of VACCINE 00:00:[address] [facility] TDAP 2019-08-10 Completed [facility] of 00:00:[address] [facility] Pneumococcal 2019-08-10 Completed [facility] o f Polysaccharide, 00:00:00 [place] [facility] PPSV23 (PNEUMOVAX) Branch TDAP (ADACEL) 2019-08-10 Completed [facility] of VACCINE 00:00:[address] [facility] TDAP 2019-08-10 Completed [facility] of 00:00:[address] [facility] Pneumococcal 2019-08-10 Completed [facility] o f Polysaccharide, 00:00:00 [place] [facility] PPSV23 (PNEUMOVAX) Branch TDAP (ADACEL) 2019-08-10 Completed [facility] of VACCINE 00:00:[address] [facility] TDAP 2019-08-10 Completed [facility] of 00:00:[address] [facility] Pneumococcal 2019-08-10 Completed [facility] o f Polysaccharide, 00:00:00 [place] [facility] PPSV23 (PNEUMOVAX) Branch TDAP (ADACEL) 2019-08-10 Completed [facility] of VACCINE 00:00:[address] [facility] TDAP 2019-08-10 Completed [facility] of 00:00:[address] [facility] Pneumococcal 2019-08-10 Completed [facility] o f Polysaccharide, 00:00:00 [place] [facility] PPSV23 (PNEUMOVAX) Branch TDAP (ADACEL) 2019-08-10 Completed [facility] VACCINE 00:00:00 [place] [facility] TDAP 2019-08-10 Completed [facility] 00:00:[address] [facility] Pneumococcal 2019-08-10 Completed [facility] o f Polysaccharide, 00:00:00 [place] [facility] PPSV23 (PNEUMOVAX) Branch TDAP (ADACEL) 2019-08-10 Completed [facility] of VACCINE 00:00:[address] [facility] TDAP 2019-08-10 Completed [facility] of 00:00:[address] [facility] Pneumococcal 2019-08-10 Completed [facility] o f Polysaccharide, 00:00:00 [place] [facility] PPSV23 (PNEUMOVAX) Branch TDAP (ADACEL) 2019-08-10 Completed [facility] of VACCINE 00:00:[address] [facility] TDAP 2019-08-10 Completed [facility] of 00:00:[address] [facility] Pneumococcal 2019-08-10 Completed [facility] o f Polysaccharide, 00:00:00 [place] [facility] PPSV23 (PNEUMOVAX) Branch TDAP (ADACEL) 2019-08-10 Completed [facility] of VACCINE 00:00:[address] [facility] TDAP 2019-08-10 Completed [facility] of 00:00:[address] [facility] Pneumococcal 2019-08-10 Completed [facility] o f Polysaccharide, 00:00:00 [place] [facility] PPSV23 (PNEUMOVAX) Branch TDAP (ADACEL) 2019-08-10 Completed [facility] of VACCINE 00:00:[address] [facility] TDAP 2019-08-10 Completed [facility] of 00:00:[address] [facility] Pneumococcal 2019-08-10 Completed [facility] o f Polysaccharide, 00:00:00 [place] [facility] PPSV23 (PNEUMOVAX) Branch TDAP (ADACEL) 2019-08-10 Completed [facility] of VACCINE 00:00:[address] [facility] TDAP 2019-08-10 Completed [facility] of 00:00:[address] [facility] Pneumococcal 2019-08-10 Completed [facility] o f Polysaccharide, 00:00:00 [place] [facility] PPSV23 (PNEUMOVAX) Branch TDAP (ADACEL) 2019-08-10 Completed [facility] of VACCINE 00:00:[address] [facility] TDAP 2019-08-10 Completed [facility] of 00:00:[address] [facility] Pneumococcal 2019-08-10 Completed [facility] o f Polysaccharide, 00:00:00 [place] [facility] PPSV23 (PNEUMOVAX) Branch TDAP (ADACEL) 2019-08-10 Completed [facility] of VACCINE 00:00:[address] [facility] TDAP 2019-08-10 Completed [facility] of 00:00:[address] [facility] Pneumococcal 2019-08-10 Completed [facility] o f Polysaccharide, 00:00:00 [place] [facility] PPSV23 (PNEUMOVAX) Branch TDAP (ADACEL) 2019-08-10 Completed [facility] of VACCINE 00:00:[address] [facility] TDAP 2019-08-10 Completed [facility] of 00:00:[address] [facility] Pneumococcal 2019-08-10 Completed [facility] o f Polysaccharide, 00:00:00 [place] [facility] PPSV23 (PNEUMOVAX) Branch TDAP (ADACEL) 2019-08-10 Completed [facility] of VACCINE 00:00:[address] [facility] TDAP 2019-08-10 Completed [facility] of 00:00:[address] [facility] Pneumococcal 2019-08-10 Completed [facility] o f Polysaccharide, 00:00:00 [place] [facility] PPSV23 (PNEUMOVAX) Branch TDAP (ADACEL) 2019-08-10 Completed [facility] of VACCINE 00:00:[address] [facility] TDAP 2019-08-10 Completed [facility] of 00:00:[address] [facility] Pneumococcal 2019-08-10 Completed [facility] o f Polysaccharide, 00:00:00 [place] [facility] PPSV23 (PNEUMOVAX) Branch TDAP (ADACEL) 2019-08-10 Completed [facility] of VACCINE 00:00:[address] [facility] TDAP 2019-08-10 Completed [facility] of 00:00:[address] [facility] Pneumococcal 2019-08-10 Completed [facility] o f Polysaccharide, 00:00:00 [place] [facility] PPSV23 (PNEUMOVAX) Branch TDAP (ADACEL) 2019-08-10 Completed [facility] of VACCINE 00:00:[address] [facility] TDAP 2019-08-10 Completed [facility] of 00:00:[address] [facility] Pneumococcal 2019-08-10 Completed [facility] o f Polysaccharide, 00:00:00 [place] [facility] PPSV23 (PNEUMOVAX) Branch TDAP (ADACEL) 2019-08-10 Completed [facility] of VACCINE 00:00:[address] [facility] TDAP 2019-08-10 Completed [facility] of 00:00:[address] [facility] Pneumococcal 2019-08-10 Completed [facility] o f Polysaccharide, 00:00:00 [place] [facility] PPSV23 (PNEUMOVAX) Branch TDAP (ADACEL) 2019-08-10 Completed [facility] of VACCINE 00:00:[address] [facility] TDAP 2019-08-10 Completed [facility] of 00:00:[address] [facility] Pneumococcal 2019-08-10 Completed [facility] o f Polysaccharide, 00:00:00 [place] [facility] PPSV23 (PNEUMOVAX) Branch TDAP (ADACEL) 2019-08-10 Completed [facility] VACCINE 00:00:00 [facility] TDAP 2019-08-10 Completed [facility] 00:00:[address] [facility] Pneumococcal 2019-08-10 Completed [facility] o [facility] Polysaccharide, 00:00:00 [place] Med ical PPSV23 (PNEUMOVAX) Branch TDAP (ADACEL) 2019-08-10 Completed [facility] of VACCINE 00:00:[address] [facility] TDAP 2019-08-10 Completed University of 00:00:[address] [facility] Pneumococcal 2019-08-10 Completed University o f Polysaccharide, 00:00:00 [place] [facility] PPSV23 (PNEUMOVAX) Branch TDAP (ADACEL) 2019-08-10 Completed [facility] of VACCINE 00:00:[address] [facility] TDAP 2019-08-10 Completed University of 00:00:[address] [facility] Pneumococcal 2019-08-10 Completed University o f Polysaccharide, 00:00:00 [place] [facility] PPSV23 (PNEUMOVAX) Branch TDAP (ADACEL) 2019-08-10 Completed [facility] of VACCINE 00:00:[address] [facility] TDAP 2019-08-10 Completed [facility] of 00:00:[address] [facility] Pneumococcal 2019-08-10 Completed University o f Polysaccharide, 00:00:00 [place] [facility] PPSV23 (PNEUMOVAX) Branch TDAP (ADACEL) 2019-08-10 Completed [facility] of VACCINE 00:00:[address] [facility] TDAP 2019-08-10 Completed [facility] of 00:00:[address] [facility] Pneumococcal 2019-08-10 Completed University o f Polysaccharide, 00:00:00 [place] [facility] PPSV23 (PNEUMOVAX) Branch TDAP (ADACEL) 2019-08-10 Completed [facility] of VACCINE 00:00:[address] [facility] TDAP 2019-08-10 Completed [facility] of 00:00:[address] [facility] Pneumococcal 2019-08-10 Completed University o f Polysaccharide, 00:00:00 [place] [facility] PPSV23 (PNEUMOVAX) Branch TDAP (ADACEL) 2019-08-10 Completed [facility] of VACCINE 00:00:[address] [facility] TDAP 2019-08-10 Completed [facility] of 00:00:[address] [facility] Pneumococcal 2019-08-10 Completed University o f Polysaccharide, 00:00:00 [place] [facility] PPSV23 (PNEUMOVAX) Branch TDAP (ADACEL) 2019-08-10 Completed [facility] of VACCINE 00:00:[address] [facility] TDAP 2019-08-10 Completed [facility] of 00:00:[address] [facility] Pneumococcal 2019-08-10 Completed University o f Polysaccharide, 00:00:00 [place] [facility] PPSV23 (PNEUMOVAX) Branch TDAP (ADACEL) 2019-08-10 Completed [facility] of VACCINE 00:00:[address] [facility] TDAP 2019-08-10 Completed [facility] of 00:00:[address] [facility] Pneumococcal 2019-08-10 Completed University o f Polysaccharide, 00:00:00 [place] [facility] PPSV23 (PNEUMOVAX) Branch TDAP (ADACEL) 2019-08-10 Completed [facility] of VACCINE 00:00:[address] [facility] TDAP 2019-08-10 Completed [facility] of 00:00:[address] [facility] Pneumococcal 2019-08-10 Completed University o f Polysaccharide, 00:00:00 [place] [facility] PPSV23 (PNEUMOVAX) Branch TDAP (ADACEL) 2019-08-10 Completed [facility] of VACCINE 00:00:[address] [facility] TDAP 2019-08-10 Completed University of 00:00:[address] [facility] Pneumococcal 2019-08-10 Completed University o f Polysaccharide, 00:00:00 [place] [facility] PPSV23 (PNEUMOVAX) Branch TDAP (ADACEL) 2019-08-10 Completed [facility] of VACCINE 00:00:[address] [facility] TDAP 2019-08-10 Completed [facility] of 00:00:[address] [facility] Pneumococcal 2019-08-10 Completed University o f Polysaccharide, 00:00:00 [place] [facility] PPSV23 (PNEUMOVAX) Branch TDAP (ADACEL) 2019-08-10 Completed [facility] of VACCINE 00:00:[address] [facility] TDAP 2019-08-10 Completed University of 00:00:[address] [facility] Pneumococcal 2019-08-10 Completed University o f Polysaccharide, 00:00:00 [place] [facility] PPSV23 (PNEUMOVAX) Branch TDAP (ADACEL) 2019-08-10 Completed [facility] of VACCINE 00:00:[address] [facility] TDAP 2019-08-10 Completed University of 00:00:[address] [facility] Pneumococcal 2019-08-10 Completed University o f Polysaccharide, 00:00:00 [place] [facility] PPSV23 (PNEUMOVAX) Branch TDAP (ADACEL) 2019-08-10 Completed [facility] of VACCINE 00:00:[address] [facility] TDAP 2019-08-10 Completed University of 00:00:[address] [facility] Pneumococcal 2019-08-10 Completed University o f Polysaccharide, 00:00:00 [place] [facility] PPSV23 (PNEUMOVAX) Branch TDAP (ADACEL) 2019-08-10 Completed [facility] of VACCINE 00:00:[address] [facility] TDAP 2019-08-10 Completed [facility] of 00:00:[address] [facility] Pneumococcal 2019-08-10 Completed University o f Polysaccharide, 00:00:00 [place] [facility] PPSV23 (PNEUMOVAX) Branch TDAP (ADACEL) 2019-08-10 Completed [facility] of VACCINE 00:00:[address] [facility] TDAP 2019-08-10 Completed [facility] of 00:00:[address] [facility] Pneumococcal 2019-08-10 Completed University o f Polysaccharide, 00:00:00 [place] [facility] PPSV23 (PNEUMOVAX) Branch TDAP (ADACEL) 2019-08-10 Completed [facility] of VACCINE 00:00:[address] [facility] TDAP 2019-08-10 Completed [facility] of 00:00:[address] [facility] Pneumococcal 2019-08-10 Completed University o f Polysaccharide, 00:00:00 [place] [facility] PPSV23 (PNEUMOVAX) Branch TDAP (ADACEL) 2019-08-10 Completed [facility] of VACCINE 00:00:[address] [facility] TDAP 2019-08-10 Completed University of 00:00:[address] [facility] Pneumococcal 2019-08-10 Completed University o f Polysaccharide, 00:00:00 [place] [facility] PPSV23 (PNEUMOVAX) Branch TDAP (ADACEL) 2019-08-10 Completed [facility] of VACCINE 00:00:[address] [facility] TDAP 2019-08-10 Completed University of 00:00:[address] [facility] Pneumococcal 2019-08-10 Completed University o f Polysaccharide, 00:00:00 [place] [facility] PPSV23 (PNEUMOVAX) Branch TDAP (ADACEL) 2019-08-10 Completed [facility] of VACCINE 00:00:[address] [facility] TDAP 2019-08-10 Completed University of 00:00:[address] [facility] Pneumococcal 2019-08-10 Completed University o f Polysaccharide, 00:00:00 [place] [facility] PPSV23 (PNEUMOVAX) Branch TDAP (ADACEL) 2019-08-10 Completed [facility] of VACCINE 00:00:[address] [facility] TDAP 2019-08-10 Completed University of 00:00:[address] [facility] Pneumococcal 2019-08-10 Completed University o f Polysaccharide, 00:00:00 [place] [facility] PPSV23 (PNEUMOVAX) Branch TDAP (ADACEL) 2019-08-10 Completed [facility] of VACCINE 00:00:[address] [facility] TDAP 2019-08-10 Completed University of 00:00:[address] [facility] Pneumococcal 2019-08-10 Completed University o f Polysaccharide, 00:00:00 [place] [facility] PPSV23 (PNEUMOVAX) Branch TDAP (ADACEL) 2019-08-10 Completed [facility] of VACCINE 00:00:[address] [facility] TDAP 2019-08-10 Completed University of 00:00:[address] [facility] Pneumococcal 2019-08-10 Completed University o f Polysaccharide, 00:00:00 [place] [facility] PPSV23 (PNEUMOVAX) Branch TDAP (ADACEL) 2019-08-10 Completed [facility] of VACCINE 00:00:[address] [facility] TDAP 2019-08-10 Completed University of 00:00:[address] [facility] Pneumococcal 2019-08-10 Completed University o f Polysaccharide, 00:00:00 [place] [facility] PPSV23 (PNEUMOVAX) Branch TDAP (ADACEL) 2019-08-10 Completed [facility] of VACCINE 00:00:[address] [facility] TDAP 2019-08-10 Completed University of 00:00:[address] [facility] Pneumococcal 2019-08-10 Completed University o f Polysaccharide, 00:00:00 [place] [facility] PPSV23 (PNEUMOVAX) Branch TDAP (ADACEL) 2019-08-10 Completed [facility] of VACCINE 00:00:[address] [facility] TDAP 2019-08-10 Completed University of 00:00:[address] [facility] Pneumococcal 2019-08-10 Completed University o f Polysaccharide, 00:00:00 [place] [facility] PPSV23 (PNEUMOVAX) Branch TDAP (ADACEL) 2019-08-10 Completed University of VACCINE 00:00:[address] [facility] TDAP 2019-08-10 Completed University of 00:00:[address] [facility] Pneumococcal 2019-08-10 Completed University o f Polysaccharide, 00:00:00 [place] [facility] PPSV23 (PNEUMOVAX) Branch TDAP (ADACEL) 2019-08-10 Completed [facility] of VACCINE 00:00:[address] [facility] TDAP 2019-08-10 Completed University of 00:00:[address] [facility] Pneumococcal 2019-08-10 Completed University o f Polysaccharide, 00:00:00 [place] [facility] PPSV23 (PNEUMOVAX) Branch TDAP (ADACEL) 2019-08-10 Completed [facility] of VACCINE 00:00:[address] [facility] TDAP 2019-08-10 Completed University of 00:00:[address] [facility] Pneumococcal 2019-08-10 Completed University o f Polysaccharide, 00:00:00 [place] [facility] PPSV23 (PNEUMOVAX) Branch TDAP (ADACEL) 2019-08-10 Completed [facility] of VACCINE 00:00:[address] [facility] TDAP 2019-08-10 Completed University of 00:00:[address] [facility] Pneumococcal 2019-08-10 Completed University o f Polysaccharide, 00:00:00 [place] [facility] PPSV23 (PNEUMOVAX) Branch TDAP (ADACEL) 2019-08-10 Completed [facility] of VACCINE 00:00:[address] [facility] TDAP 2019-08-10 Completed University of 00:00:[address] [facility] Pneumococcal 2019-08-10 Completed University o f Polysaccharide, 00:00:00 [place] [facility] PPSV23 (PNEUMOVAX) Branch TDAP (ADACEL) 2019-08-10 Completed [facility] of VACCINE 00:00:[address] [facility] TDAP 2019-08-10 Completed University of 00:00:[address] [facility] Pneumococcal 2019-08-10 Completed University o f Polysaccharide, 00:00:00 [place] [facility] PPSV23 (PNEUMOVAX) Branch TDAP (ADACEL) 2019-08-10 Completed [facility] of VACCINE 00:00:[address] [facility] TDAP 2019-08-10 Completed University of 00:00:[address] [facility] Pneumococcal 2019-08-10 Completed University o f Polysaccharide, 00:00:00 [place] [facility] PPSV23 (PNEUMOVAX) Branch TDAP (ADACEL) 2019-08-10 Completed [facility] of VACCINE 00:00:[address] [facility] TDAP 2019-08-10 Completed University of 00:00:[address] [facility] Pneumococcal 2019-08-10 Completed University o f Polysaccharide, 00:00:00 [place] [facility] PPSV23 (PNEUMOVAX) Branch TDAP (ADACEL) 2019-08-10 Completed [facility] of VACCINE 00:00:[address] [facility] TDAP 2019-08-10 Completed University of 00:00:[address] [facility] Pneumococcal 2019-08-10 Completed University o f Polysaccharide, 00:00:00 [place] [facility] PPSV23 (PNEUMOVAX) Branch TDAP (ADACEL) 2019-08-10 Completed [facility] of VACCINE 00:00:[address] [facility] TDAP 2019-08-10 Completed University of 00:00:[address] [facility] Pneumococcal 2019-08-10 Completed University o f Polysaccharide, 00:00:00 [place] [facility] PPSV23 (PNEUMOVAX) Branch TDAP (ADACEL) 2019-08-10 Completed [facility] of VACCINE 00:00:[address] [facility] TDAP 2019-08-10 Completed University of 00:00:[address] [facility] Pneumococcal 2019-08-10 Completed University o f Polysaccharide, 00:00:00 [place] [facility] PPSV23 (PNEUMOVAX) Branch TDAP (ADACEL) 2019-08-10 Completed [facility] of VACCINE 00:00:[address] [facility] TDAP 2019-08-10 Completed University of 00:00:[address] [facility] Pneumococcal 2019-08-10 Completed University o f Polysaccharide, 00:00:00 [place] [facility] PPSV23 (PNEUMOVAX) Branch TDAP (ADACEL) 2019-08-10 Completed [facility] of VACCINE 00:00:[address] [facility] TDAP 2019-08-10 Completed University of 00:00:[address] [facility] Pneumococcal 2019-08-10 Completed University o f Polysaccharide, 00:00:00 [place] [facility] PPSV23 (PNEUMOVAX) Branch TDAP (ADACEL) 2019-08-10 Completed [facility] of VACCINE 00:00:00 [facility] TDAP 2019-08-10 Completed University of 00:00:[address] [facility] Pneumococcal 2019-08-10 Completed University o f Polysaccharide, 00:00:00 [place] [facility] PPSV23 (PNEUMOVAX) Branch TDAP (ADACEL) 2019-08-10 Completed [facility] of VACCINE 00:00:[address] [facility] TDAP 2019-08-10 Completed University of 00:00:[address] [facility] Pneumococcal 2019-08-10 Completed University o f Polysaccharide, 00:00:00 [place] [facility] PPSV23 (PNEUMOVAX) Branch TDAP (ADACEL) 2019-08-10 Completed [facility] of VACCINE 00:00:[address] [facility] TDAP 2019-08-10 Completed University of 00:00:[address] [facility] Pneumococcal 2019-08-10 Completed University o f Polysaccharide, 00:00:00 [place] [facility] PPSV23 (PNEUMOVAX) Branch TDAP (ADACEL) 2019-08-10 Completed University of VACCINE 00:00:[address] [facility] TDAP 2019-08-10 Completed University of 00:00:[address] [facility] Pneumococcal 2019-08-10 Completed University o f Polysaccharide, 00:00:00 [place] [facility] PPSV23 (PNEUMOVAX) Branch TDAP (ADACEL) 2019-08-10 Completed [facility] of VACCINE 00:00:[address] [facility] TDAP 2019-08-10 Completed University of 00:00:[address] [facility] Pneumococcal 2019-08-10 Completed University o f Polysaccharide, 00:00:00 [place] [facility] PPSV23 (PNEUMOVAX) Branch TDAP (ADACEL) 2019-08-10 Completed [facility] of VACCINE 00:00:[address] [facility] TDAP 2019-08-10 Completed [facility] of 00:00:[address] [facility] Pneumococcal 2019-08-10 Completed University o f Polysaccharide, 00:00:00 [place] [facility] PPSV23 (PNEUMOVAX) Branch TDAP (ADACEL) 2019-08-10 Completed University of VACCINE 00:00:[address] [facility] TDAP 2019-08-10 Completed University of 00:00:[address] [facility] Pneumococcal 2019-08-10 Completed University o f Polysaccharide, 00:00:00 [place] [facility] PPSV23 (PNEUMOVAX) Branch TDAP (ADACEL) 2019-08-10 Completed [facility] of VACCINE 00:00:00 [facility] Branch TDAP 2019-08-10 Completed University of 00:00:[address] [facility] Pneumococcal 2019-08-10 Completed University o f Polysaccharide, 00:00:00 [place] [facility] PPSV23 (PNEUMOVAX) Branch TDAP (ADACEL) 2019-08-10 Completed [facility] of VACCINE 00:00:[address] [facility] TDAP 2019-08-10 Completed University of 00:00:[address] [facility] Pneumococcal 2019-08-10 Completed University o f Polysaccharide, 00:00:00 [place] [facility] PPSV23 (PNEUMOVAX) Branch TDAP (ADACEL) 2019-08-10 Completed [facility] of VACCINE 00:00:[address] [facility] TDAP 2019-08-10 Completed University of 00:00:[address] [facility] Pneumococcal 2019-08-10 Completed University o f Polysaccharide, 00:00:00 [facility] ical PPSV23 (PNEUMOVAX) Branch TDAP (ADACEL) 2019-08-10 Completed University of VACCINE 00:00:[address] [facility] TDAP 2019-08-10 Completed University of 00:00:[address] [facility] Pneumococcal 2019-08-10 Completed University o f Polysaccharide, 00:00:00 [facility] ical PPSV23 (PNEUMOVAX) Branch TDAP (ADACEL) 2019-08-10 Completed University of VACCINE 00:00:[address] [facility] TDAP 2019-08-10 Completed University of 00:00:[address] [facility] Pneumococcal 2019-08-10 Completed University o f Polysaccharide, 00:00:00 [place] [facility] PPSV23 (PNEUMOVAX) Branch TDAP (ADACEL) 2019-08-10 Completed [facility] of VACCINE 00:00:[address] [facility] TDAP 2019-08-10 Completed [facility] of 00:00:[address] [facility] Pneumococcal 2019-08-10 Completed University o f Polysaccharide, 00:00:00 [facility] ical PPSV23 (PNEUMOVAX) Branch TDAP (ADACEL) 2019-08-10 Completed University of VACCINE 00:00:[address] [facility] TDAP 2019-08-10 Completed University of 00:00:[address] [facility] Influenza Virus 2019-07-04 Completed Universit y of Vaccine 00:00:[address] [facility] Influenza Virus 2019-07-04 Completed Universit y of Vaccine Recomb Quad 00:00:00 [facility] IM, Preserv and ABX Branc h Free 18-64 YRS Influenza Virus 2019-07-04 Completed Universit y of Vaccine 00:00:[address] [facility] Influenza Virus 2019-07-04 Completed Universit y of Vaccine Recomb Quad 00:00:00 [place] [facility] IM, Preserv and ABX Branc h Free 18-64 YRS Influenza Virus 2019-07-04 Completed Universit y of Vaccine 00:00:[address] [facility] Influenza Virus 2019-07-04 Completed Universit y of Vaccine Recomb Quad 00:00:00 [place] [facility] IM, Preserv and ABX Branc h Free 18-64 YRS Influenza Virus 2019-07-04 Completed Universit y of Vaccine 00:00:[address] [facility] Influenza Virus 2019-07-04 Completed Universit y of Vaccine Recomb Quad 00:00:00 [facility] IM, Preserv and ABX Branc h Free 18-64 YRS Influenza Virus 2019-07-04 Completed Universit y of Vaccine 00:00:[address] [facility] Influenza Virus 2019-07-04 Completed Universit y of Vaccine Recomb Quad 00:00:00 [facility] IM, Preserv and ABX Branc h Free 18-64 YRS Influenza Virus 2019-07-04 Completed Universit y of Vaccine 00:00:[address] [facility] Influenza Virus 2019-07-04 Completed Universit y of Vaccine Recomb Quad 00:00:00 [facility] IM, Preserv and ABX Branc h Free 18-64 YRS Influenza Virus 2019-07-04 Completed Universit y of Vaccine 00:00:[address] [facility] Influenza Virus 2019-07-04 Completed Universit y of Vaccine Recomb Quad 00:00:00 [facility] IM, Preserv and ABX Branc h Free 18-64 YRS Influenza Virus 2019-07-04 Completed Universit y of Vaccine 00:00:[address] [facility] Influenza Virus 2019-07-04 Completed Universit y of Vaccine Recomb Quad 00:00:00 [facility] IM, Preserv and ABX Branc h Free 18-64 YRS Influenza Virus 2019-07-04 Completed Universit y of Vaccine 00:00:[address] [facility] Influenza Virus 2019-07-04 Completed Universit y of Vaccine Recomb Quad 00:00:00 [facility] IM, Preserv and ABX Branc h Free 18-64 YRS Influenza Virus 2019-07-04 Completed Universit y of Vaccine 00:00:[address] [facility] Influenza Virus 2019-07-04 Completed Universit y of Vaccine Recomb Quad 00:00:00 [facility] IM, Preserv and ABX Branc h Free 18-64 YRS Influenza Virus 2019-07-04 Completed Universit y of Vaccine 00:00:[address] [facility] Influenza Virus 2019-07-04 Completed Universit y of Vaccine Recomb Quad 00:00:00 [facility] IM, Preserv and ABX Branc h Free 18-64 YRS Influenza Virus 2019-07-04 Completed Universit y of Vaccine 00:00:[address] [facility] Influenza Virus 2019-07-04 Completed Universit y of Vaccine Recomb Quad 00:00:00 [facility] IM, Preserv and ABX Branc h Free 18-64 YRS Influenza Virus 2019-07-04 Completed Universit y of Vaccine 00:00:[address] [facility] Influenza Virus 2019-07-04 Completed Universit y of Vaccine Recomb Quad 00:00:00 [facility] IM, Preserv and ABX Branc h Free 18-64 YRS Influenza Virus 2019-07-04 Completed Universit y of Vaccine 00:00:[address] [facility] Influenza Virus 2019-07-04 Completed Universit y of Vaccine Recomb Quad 00:00:00 [facility] IM, Preserv and ABX Branc h Free 18-64 YRS Influenza Virus 2019-07-04 Completed Universit y of Vaccine 00:00:[address] [facility] Influenza Virus 2019-07-04 Completed Universit y of Vaccine Recomb Quad 00:00:00 [facility] IM, Preserv and ABX Branc h Free 18-64 YRS Influenza Virus 2019-07-04 Completed Universit y of Vaccine 00:00:[address] [facility] Influenza Virus 2019-07-04 Completed Universit y of Vaccine Recomb Quad 00:00:00 [facility] IM, Preserv and ABX Branc h Free 18-64 YRS Influenza Virus 2019-07-04 Completed Universit y of Vaccine 00:00:[address] [facility] Influenza Virus 2019-07-04 Completed Universit y of Vaccine Recomb Quad 00:00:00 [facility] IM, Preserv and ABX Branc h Free 18-64 YRS Influenza Virus 2019-07-04 Completed Universit y of Vaccine 00:00:[address] [facility] Influenza Virus 2019-07-04 Completed Universit y of Vaccine Recomb Quad 00:00:00 [place] [facility] IM, Preserv and ABX Branc h Free 18-64 YRS Influenza Virus 2019-07-04 Completed Universit y of Vaccine 00:00:[address] [facility] Influenza Virus 2019-07-04 Completed Universit y of Vaccine Recomb Quad 00:00:00 [facility] IM, Preserv and ABX Branc h Free 18-64 YRS Influenza Virus 2019-07-04 Completed Universit y of Vaccine 00:00:[address] [facility] Influenza Virus 2019-07-04 Completed Universit y of Vaccine Recomb Quad 00:00:00 [facility] IM, Preserv and ABX Branc h Free 18-64 YRS Influenza Virus 2019-07-04 Completed Universit y of Vaccine 00:00:[address] [facility] Influenza Virus 2019-07-04 Completed Universit y of Vaccine Recomb Quad 00:00:00 [place] [facility] IM, Preserv and ABX Branc h Free 18-64 YRS Influenza Virus 2019-07-04 Completed Universit y of Vaccine 00:00:[address] [facility] Influenza Virus 2019-07-04 Completed Universit y of Vaccine Recomb Quad 00:00:00 [facility] IM, Preserv and ABX Branc h Free 18-64 YRS Influenza Virus 2019-07-04 Completed Universit y of Vaccine 00:00:[address] [facility] Influenza Virus 2019-07-04 Completed Universit y of Vaccine Recomb Quad 00:00:00 [place] [facility] IM, Preserv and ABX Branc h Free 18-64 YRS Influenza Virus 2019-07-04 Completed Universit y of Vaccine 00:00:[address] [facility] Influenza Virus 2019-07-04 Completed Universit y of Vaccine Recomb Quad 00:00:00 [facility] IM, Preserv and ABX Branc h Free 18-64 YRS Influenza Virus 2019-07-04 Completed Universit y of Vaccine 00:00:[address] [facility] Influenza Virus 2019-07-04 Completed Universit y of Vaccine Recomb Quad 00:00:00 [facility] IM, Preserv and ABX Branc h Free 18-64 YRS Influenza Virus 2019-07-04 Completed Universit y of Vaccine 00:00:[address] [facility] Influenza Virus 2019-07-04 Completed Universit y of Vaccine Recomb Quad 00:00:00 [facility] IM, Preserv and ABX Branc h Free 18-64 YRS Influenza Virus 2019-07-04 Completed Universit y of Vaccine 00:00:[address] [facility] Influenza Virus 2019-07-04 Completed Universit y of Vaccine Recomb Quad 00:00:00 [facility] IM, Preserv and ABX Branc h Free 18-64 YRS Influenza Virus 2019-07-04 Completed [facility]it y of Vaccine 00:00:[address] [facility] [facility] Influenza Virus 2019-07-04 Completed [facility] 00:00:00 [facility], Preserv and ABX Branc h Free 18-64 YRS Influenza Virus 2019-07-04 Completed [facility] Vaccine 00:00:[address] [facility] Influenza Virus 2019-07-04 Completed [facility] Vaccine [facility] 00:00:00 [facility], Preserv and ABX Branc h Free 18-64 YRS Influenza Virus 2019-07-04 Completed [facility] Vaccine 00:00:[address] [facility] Influenza Virus 2019-07-04 Completed [facility] Vaccine Re[facility] 00:00:00 [facility], Preserv and ABX Branc h Free 18-64 YRS Influenza Virus 2019-07-04 Completed [facility] Vaccine 00:00:[address] [facility] Influenza Virus 2019-07-04 Completed [facility] Vaccine Re[facility] 00:00:00 [facility], Preserv and ABX Branc h Free 18-64 YRS Influenza Virus 2019-07-04 Completed [facility] Vaccine 00:00:[address] [facility] Influenza Virus 2019-07-04 Completed [facility] Vaccine Re[facility] 00:00:00 [facility], Preserv and ABX Branc h Free 18-64 YRS Influenza Virus 2019-07-04 Completed [facility] Vaccine 00:00:[address] [facility] Influenza Virus 2019-07-04 Completed [facility] Vaccine Recomb Quad 00:00:00 [facility], Preserv and ABX Branc h Free 18-64 YRS Influenza Virus 2019-07-04 Completed [facility] Vaccine 00:00:[address] [facility] Influenza Virus 2019-07-04 Completed [facility] Vaccine Recomb [facility] 00:00:00 [facility], Preserv and ABX Branc h Free 18-64 YRS Influenza Virus 2019-07-04 Completed [facility] Vaccine 00:00:[address] [facility] Influenza Virus 2019-07-04 Completed [facility] Vaccine Recomb Quad 00:00:00 [facility], Preserv and ABX Branc h Free 18-64 YRS Influenza Virus 2019-07-04 Completed [facility] Vaccine 00:00:[address] [facility] Influenza Virus 2019-07-04 Completed [facility] Vaccine Re[facility] 00:00:00 [facility], Preserv and ABX Branc h Free 18-64 YRS Influenza Virus 2019-07-04 Completed [facility] Vaccine 00:00:[address] [facility] Influenza Virus 2019-07-04 Completed [facility] Vaccine Re[facility] 00:00:00 [facility], Preserv and ABX Branc h Free 18-64 YRS Influenza Virus 2019-07-04 Completed [facility] Vaccine 00:00:[address] [facility] Influenza Virus 2019-07-04 Completed [facility] Vaccine Re[facility] 00:00:00 [facility], Preserv and ABX Branc h Free 18-64 YRS Influenza Virus 2019-07-04 Completed [facility] Vaccine 00:00:[address] [facility] Influenza Virus 2019-07-04 Completed [facility] Vaccine [facility] 00:00:00 [facility], Preserv and ABX Branc h Free 18-64 YRS Influenza Virus 2019-07-04 Completed [facility] Vaccine 00:00:[address] [facility] Influenza Virus 2019-07-04 Completed [facility] Vaccine Re[facility] 00:00:00 [facility], Preserv and ABX Branc h Free 18-64 YRS Influenza Virus 2019-07-04 Completed [facility] Vaccine 00:00:[address] [facility] Influenza Virus 2019-07-04 Completed [facility] Vaccine Re[facility] Quad 00:00:00 [facility], Preserv and ABX Branc h Free 18-64 YRS Influenza Virus 2019-07-04 Completed [facility] Vaccine 00:00:[address] [facility] Influenza Virus 2019-07-04 Completed [facility] Vaccine Recomb Quad 00:00:00 [facility], Preserv and ABX Branc h Free 18-64 YRS Influenza Virus 2019-07-04 Completed [facility] Vaccine 00:00:[address] [facility] Influenza Virus 2019-07-04 Completed [facility] Vaccine Re[facility] Quad 00:00:00 [facility], Preserv and ABX Branc h Free 18-64 YRS Influenza Virus 2019-07-04 Completed [facility] Vaccine 00:00:[address] [facility] Influenza Virus 2019-07-04 Completed [facility] Vaccine Re[facility] 00:00:00 [facility], Preserv and ABX Branc h Free 18-64 YRS Influenza Virus 2019-07-04 Completed [facility] Vaccine 00:00:[address] [facility] Influenza Virus 2019-07-04 Completed [facility] Vaccine Re[facility] Quad 00:00:00 [facility], Preserv and ABX Branc h Free 18-64 YRS Influenza Virus 2019-07-04 Completed [facility] Vaccine 00:00:[address] [facility] Influenza Virus 2019-07-04 Completed [facility] Vaccine Re[facility] 00:00:00 [facility], Preserv and ABX Branc h Free 18-64 YRS Influenza Virus 2019-07-04 Completed [facility] Vaccine 00:00:[address] [facility] Influenza Virus 2019-07-04 Completed [facility] Vaccine Recomb Quad 00:00:00 [facility], Preserv and ABX Branc h Free 18-64 YRS Influenza Virus 2019-07-04 Completed [facility] Vaccine 00:00:[address] [facility] Influenza Virus 2019-07-04 Completed [facility] Vaccine Recomb [facility] 00:00:00 [facility], Preserv and ABX Branc h Free 18-64 YRS Influenza Virus 2019-07-04 Completed [facility] Vaccine 00:00:[address] [facility] Influenza Virus 2019-07-04 Completed [facility] Vaccine Recomb Quad 00:00:00 [facility], Preserv and ABX Branc h Free 18-64 YRS Influenza Virus 2019-07-04 Completed [facility] Vaccine 00:00:[address] [facility] Influenza Virus 2019-07-04 Completed [facility] Vaccine Recomb Quad 00:00:00 [facility], Preserv and ABX Branc h Free 18-64 YRS Influenza Virus 2019-07-04 Completed [facility] Vaccine 00:00:[address] [facility] Influenza Virus 2019-07-04 Completed [facility] Vaccine [facility] 00:00:00 [facility], Preserv and ABX Branc h Free 18-64 YRS Influenza Virus 2019-07-04 Completed [facility] Vaccine 00:00:[address] [facility] Influenza Virus 2019-07-04 Completed [facility] Vaccine [facility] 00:00:00 [facility], Preserv and ABX Branc h Free 18-64 YRS Influenza Virus 2019-07-04 Completed [facility] Vaccine 00:00:[address] [facility] Influenza Virus 2019-07-04 Completed [facility] Vaccine Re[facility] 00:00:00 [facility], Preserv and ABX Branc h Free 18-64 YRS Influenza Virus 2019-07-04 Completed [facility] Vaccine 00:00:[address] [facility] Influenza Virus 2019-07-04 Completed [facility] Vaccine [facility] 00:00:00 [facility], Preserv and ABX Branc h Free 18-64 YRS Influenza Virus 2019-07-04 Completed [facility] Vaccine 00:00:[address] [facility] Influenza Virus 2019-07-04 Completed [facility] Vaccine [facility] 00:00:00 [facility], Preserv and ABX Branc h Free 18-64 YRS Influenza Virus 2019-07-04 Completed [facility] Vaccine 00:00:[address] [facility] Influenza Virus 2019-07-04 Completed [facility] Vaccine Re[facility] 00:00:00 [facility], Preserv and ABX Branc h Free 18-64 YRS Influenza Virus 2019-07-04 Completed [facility] Vaccine 00:00:[address] [facility] Influenza Virus 2019-07-04 Completed [facility] Vaccine Re[facility] 00:00:00 [facility], Preserv and ABX Branc h Free 18-64 YRS Influenza Virus 2019-07-04 Completed [facility] Vaccine 00:00:[address] [facility] Influenza Virus 2019-07-04 Completed [facility] Vaccine Re[facility] Quad 00:00:00 [facility], Preserv and ABX Branc h Free 18-64 YRS Influenza Virus 2019-07-04 Completed [facility] Vaccine 00:00:[address] [facility] Influenza Virus 2019-07-04 Completed [facility] Vaccine Re[facility] 00:00:00 [facility], Preserv and ABX Branc h Free 18-64 YRS Influenza Virus 2019-07-04 Completed [facility] Vaccine 00:00:[address] [facility] Influenza Virus 2019-07-04 Completed [facility] Vaccine [facility] 00:00:00 [facility], Preserv and ABX Branc h Free 18-64 YRS Influenza Virus 2019-07-04 Completed [facility] Vaccine 00:00:[address] [facility] Influenza Virus 2019-07-04 Completed [facility] Vaccine [facility] 00:00:00 [facility], Preserv and ABX Branc h Free 18-64 YRS Influenza Virus 2019-07-04 Completed [facility] Vaccine 00:00:[address] [facility] Influenza Virus 2019-07-04 Completed [facility] Vaccine [facility] 00:00:00 [facility], Preserv and ABX Branc h Free 18-64 YRS Influenza Virus 2019-07-04 Completed [facility] Vaccine 00:00:[address] [facility] Influenza Virus 2019-07-04 Completed [facility] Vaccine [facility] 00:00:00 [facility], Preserv and ABX Branc h Free 18-64 YRS Influenza Virus 2019-07-04 Completed [facility] Vaccine 00:00:[address] [facility] Influenza Virus 2019-07-04 Completed [facility] Vaccine Recomb Quad 00:00:00 [facility], Preserv and ABX Branc h Free 18-64 YRS Influenza Virus 2019-07-04 Completed [facility] Vaccine 00:00:[address] [facility] Influenza Virus 2019-07-04 Completed [facility] Vaccine Recomb Quad 00:00:00 [facility], Preserv and ABX Branc h Free 18-64 YRS Influenza Virus 2019-07-04 Completed [facility] Vaccine 00:00:[address] [facility] Influenza Virus 2019-07-04 Completed [facility] Vaccine Re[facility] Quad 00:00:00 [facility], Preserv and ABX Branc h Free 18-64 YRS Influenza Virus 2019-07-04 Completed [facility] Vaccine 00:00:[address] [facility] Influenza Virus 2019-07-04 Completed [facility] Vaccine Recomb Quad 00:00:00 [facility], Preserv and ABX Branc h Free 18-64 YRS Influenza Virus 2019-07-04 Completed [facility] Vaccine 00:00:[address] [facility] Influenza Virus 2019-07-04 Completed [facility] Vaccine Recomb Quad 00:00:00 [facility], Preserv and ABX Branc h Free 18-64 YRS Influenza Virus 2019-07-04 Completed [facility] Vaccine 00:00:[address] [facility] Influenza Virus 2019-07-04 Completed [facility] Vaccine Recomb Quad 00:00:00 [facility], Preserv and ABX Branc h Free 18-64 YRS Influenza Virus 2019-07-04 Completed [facility] Vaccine 00:00:[address] [facility] Influenza Virus 2019-07-04 Completed [facility] Vaccine Recomb Quad 00:00:00 [facility], Preserv and ABX Branc h Free 18-64 YRS Influenza Virus 2019-07-04 Completed [facility] Vaccine 00:00:[address] [facility] Influenza Virus 2019-07-04 Completed [facility] Vaccine Recomb Quad 00:00:00 [facility], Preserv and ABX Branc h Free 18-64 YRS Influenza Virus 2019-07-04 Completed [facility] Vaccine 00:00:[address] [facility] Influenza Virus 2019-07-04 Completed [facility] Vaccine Recomb Quad 00:00:00 [facility], Preserv and ABX Branc h Free 18-64 YRS Influenza Virus 2019-07-04 Completed [facility] Vaccine 00:00:[address] [facility] Influenza Virus 2019-07-04 Completed [facility] Vaccine Recomb Quad 00:00:00 [facility], Preserv and ABX Branc h Free 18-64 YRS Influenza Virus 2019-07-04 Completed [facility] Vaccine 00:00:[address] [facility] Influenza Virus 2019-07-04 Completed [facility] Vaccine Re[facility] 00:00:00 [facility], Preserv and ABX Branc h Free 18-64 YRS Influenza Virus 2019-07-04 Completed [facility] Vaccine 00:00:[address] [facility] Influenza Virus 2019-07-04 Completed [facility] Vaccine Re[facility] Quad 00:00:00 [facility], Preserv and ABX Branc h Free 18-64 YRS Influenza Virus 2019-07-04 Completed [facility] Vaccine 00:00:[address] [facility] Influenza Virus 2019-07-04 Completed [facility] Vaccine Re[facility] 00:00:00 [facility], Preserv and ABX Branc h Free 18-64 YRS Influenza Virus 2019-07-04 Completed [facility] Vaccine 00:00:[address] [facility] Influenza Virus 2019-07-04 Completed [facility] Vaccine Recomb Quad 00:00:00 [facility], Preserv and ABX Branc h Free 18-64 YRS Influenza Virus 2019-07-04 Completed [facility] Vaccine 00:00:[address] [facility] Influenza Virus 2019-07-04 Completed [facility] Vaccine Recomb Quad 00:00:00 [facility], Preserv and ABX Branc h Free 18-64 YRS Influenza Virus 2019-07-04 Completed [facility] Vaccine 00:00:[address] [facility] Influenza Virus 2019-07-04 Completed [facility] Vaccine Recomb [facility] 00:00:00 [facility], Preserv and ABX Branc h Free 18-64 YRS Influenza Virus 2019-07-04 Completed [facility] Vaccine 00:00:[address] [facility] Influenza Virus 2019-07-04 Completed [facility] Vaccine Re[facility] 00:00:00 [facility], Preserv and ABX Branc h Free 18-64 YRS Influenza Virus 2019-07-04 Completed [facility] Vaccine 00:00:[address] [facility] Influenza Virus 2019-07-04 Completed [facility] Vaccine Re[facility] 00:00:00 [facility], Preserv and ABX Branc h Free 18-64 YRS Influenza Virus 2019-07-04 Completed [facility] Vaccine 00:00:[address] [facility] Influenza Virus 2019-07-04 Completed [facility] Vaccine Re[facility] 00:00:00 [facility], Preserv and ABX Branc h Free 18-64 YRS Influenza Virus 2019-07-04 Completed [facility] Vaccine 00:00:[address] [facility] Influenza Virus 2019-07-04 Completed [facility] Vaccine Recomb Quad 00:00:00 [facility], Preserv and ABX Branc h Free 18-64 YRS Influenza Virus 2019-07-04 Completed [facility] Vaccine 00:00:[address] [facility] Influenza Virus 2019-07-04 Completed [facility] Vaccine Re[facility] 00:00:00 [facility], Preserv and ABX Branc h Free 18-64 YRS Influenza Virus 2019-07-04 Completed [facility] Vaccine 00:00:[address] [facility] Influenza Virus 2019-07-04 Completed [facility] Vaccine Recomb [facility] 00:00:00 [facility], Preserv and ABX Branc h Free 18-64 YRS Influenza Virus 2019-07-04 Completed [facility] Vaccine 00:00:[address] [facility] Influenza Virus 2019-07-04 Completed [facility] Vaccine Recomb Quad 00:00:00 [facility], Preserv and ABX Branc h Free 18-64 YRS Influenza Virus 2019-07-04 Completed [facility] Vaccine 00:00:[address] [facility] Influenza Virus 2019-07-04 Completed [facility] Vaccine Recomb Quad 00:00:00 [facility], Preserv and ABX Branc h Free 18-64 YRS Influenza Virus 2019-07-04 Completed [facility] Vaccine 00:00:[address] [facility] Influenza Virus 2019-07-04 Completed [facility] Vaccine Recomb Quad 00:00:00 [facility], Preserv and ABX Branc h Free 18-64 YRS Influenza Virus 2019-07-04 Completed [facility] Vaccine 00:00:[address] [facility] Influenza Virus 2019-07-04 Completed [facility] Vaccine Recomb Quad 00:00:00 [facility], Preserv and ABX Branc h Free 18-64 YRS Influenza Virus 2019-07-04 Completed [facility] Vaccine 00:00:[address] [facility] Influenza Virus 2019-07-04 Completed [facility] Vaccine Recomb Quad 00:00:00 [facility], Preserv and ABX Branc h Free 18-64 YRS Influenza Virus 2019-07-04 Completed [facility] Vaccine 00:00:[address] [facility] Influenza Virus 2019-07-04 Completed [facility] Vaccine Re[facility] 00:00:00 [facility], Preserv and ABX Branc h Free 18-64 YRS Influenza Virus 2019-07-04 Completed [facility] Vaccine 00:00:[address] [facility] Influenza Virus 2019-07-04 Completed [facility] Vaccine Recomb Quad 00:00:00 [facility], Preserv and ABX Branc h Free 18-64 YRS Influenza Virus 2019-07-04 Completed [facility] Vaccine 00:00:[address] [facility] Influenza Virus 2019-07-04 Completed [facility] Vaccine Recomb Quad 00:00:00 [facility], Preserv and ABX Branc h Free 18-64 YRS Influenza Virus 2019-07-04 Completed [facility] Vaccine 00:00:[address] [facility] Influenza Virus 2019-07-04 Completed [facility] Vaccine Re[facility] Quad 00:00:00 [facility], Preserv and ABX Branc h Free 18-64 YRS Influenza Virus 2019-07-04 Completed [facility] Vaccine 00:00:[address] [facility] Influenza Virus 2019-07-04 Completed [facility] Vaccine Recomb Quad 00:00:00 [facility], Preserv and ABX Branc h Free 18-64 YRS Influenza Virus 2019-07-04 Completed [facility] Vaccine 00:00:[address] [facility] Influenza Virus 2019-07-04 Completed [facility] Vaccine Re[facility] Quad 00:00:00 [facility], Preserv and ABX Branc h Free 18-64 YRS Influenza Virus 2019-07-04 Completed [facility] Vaccine 00:00:[address] [facility] Influenza Virus 2019-07-04 Completed [facility] Vaccine Re[facility] 00:00:00 [facility], Preserv and ABX Branc h Free 18-64 YRS Influenza Virus 2019-07-04 Completed [facility] Vaccine 00:00:[address] [facility] Influenza Virus 2019-07-04 Completed [facility] Vaccine Recomb Quad 00:00:00 [facility], Preserv and ABX Branc h Free 18-64 YRS Influenza Virus 2019-07-04 Completed [facility] Vaccine 00:00:[address] [facility] Influenza Virus 2019-07-04 Completed [facility] Vaccine [facility] 00:00:00 [facility], Preserv and ABX Branc h Free 18-64 YRS Influenza Virus 2019-07-04 Completed [facility] Vaccine 00:00:[address] [facility] Influenza Virus 2019-07-04 Completed [facility] Vaccine [facility] 00:00:00 [facility], Preserv and ABX Branc h Free 18-64 YRS Influenza Virus 2019-07-04 Completed [facility] Vaccine 00:00:[address] [facility] Influenza Virus 2019-07-04 Completed [facility] Vaccine Recomb Quad 00:00:00 [facility], Preserv and ABX Branc h Free 18-64 YRS Influenza Virus 2019-07-04 Completed [facility] Vaccine 00:00:[address] [facility] Influenza Virus 2019-07-04 Completed [facility] Vaccine Recomb Quad 00:00:00 [facility], Preserv and ABX Branc h Free 18-64 YRS Influenza Virus 2019-07-04 Completed [facility] Vaccine 00:00:[address] [facility] Influenza Virus 2019-07-04 Completed [facility] Vaccine Re[facility] 00:00:00 [facility], Preserv and ABX Branc h Free 18-64 YRS Influenza Virus 2019-07-04 Completed [facility] Vaccine 00:00:[address] [facility] Influenza Virus 2019-07-04 Completed [facility] Vaccine [facility] 00:00:00 [facility], Preserv and ABX Branc h Free 18-64 YRS Influenza Virus 2019-07-04 Completed [facility] Vaccine 00:00:[address] [facility] Influenza Virus 2019-07-04 Completed [facility] Vaccine [facility] 00:00:00 [facility], Preserv and ABX Branc h Free 18-64 YRS Influenza Virus 2019-07-04 Completed [facility] Vaccine 00:00:[address] [facility] Influenza Virus 2019-07-04 Completed [facility] Vaccine [facility] 00:00:00 [facility], Preserv and ABX Branc h Free 18-64 YRS Influenza Virus 2019-07-04 Completed [facility] Vaccine 00:00:[address] [facility] Influenza Virus 2019-07-04 Completed [facility] Vaccine Re[facility] Quad 00:00:00 [facility], Preserv and ABX Branc h Free 18-64 YRS Influenza Virus 2019-07-04 Completed [facility] Vaccine 00:00:[address] [facility] Influenza Virus 2019-07-04 Completed [facility] Vaccine [facility] 00:00:00 [facility], Preserv and ABX Branc h Free 18-64 YRS Influenza Virus 2019-07-04 Completed [facility] Vaccine 00:00:[address] [facility] Influenza Virus 2019-07-04 Completed [facility] Vaccine [facility] 00:00:00 [facility], Preserv and ABX Branc h Free 18-64 YRS Influenza Virus 2019-07-04 Completed [facility] Vaccine 00:00:[address] [facility] Influenza Virus 2019-07-04 Completed [facility] Vaccine Re[facility] Quad 00:00:00 [facility], Preserv and ABX Branc h Free 18-64 YRS Influenza Virus 2019-07-04 Completed [facility] Vaccine 00:00:[address] [facility] Influenza Virus 2019-07-04 Completed [facility] Vaccine [facility] 00:00:00 [facility], Preserv and ABX Branc h Free 18-64 YRS Influenza Virus 2019-07-04 Completed [facility] Vaccine 00:00:[address] [facility] Influenza Virus 2019-07-04 Completed [facility] Vaccine [facility] 00:00:00 [facility], Preserv and ABX Branc h Free 18-64 YRS Influenza Virus 2019-07-04 Completed [facility] Vaccine 00:00:[address] [facility] Influenza Virus 2019-07-04 Completed [facility] Vaccine Re[facility] 00:00:00 [facility], Preserv and ABX Branc h Free 18-64 YRS Influenza Virus 2019-07-04 Completed [facility] Vaccine 00:00:[address] [facility] Influenza Virus 2019-07-04 Completed [facility] Vaccine [facility] 00:00:00 [facility], Preserv and ABX Branc h Free 18-64 YRS Influenza Virus 2019-07-04 Completed [facility] Vaccine 00:00:[address] [facility] Influenza Virus 2019-07-04 Completed [facility] Vaccine Re[facility] 00:00:00 [facility], Preserv and ABX Branc h Free 18-64 YRS Influenza Virus 2019-07-04 Completed [facility] Vaccine 00:00:[address] [facility] Influenza Virus 2019-07-04 Completed [facility] Vaccine Re[facility] 00:00:00 [facility], Preserv and ABX Branc h Free 18-64 YRS Influenza Virus 2019-07-04 Completed [facility] Vaccine 00:00:[address] [facility] Influenza Virus 2019-07-04 Completed [facility] Vaccine Recomb Quad 00:00:00 [facility], Preserv and ABX Branc h Free 18-64 YRS Influenza Virus 2019-07-04 Completed [facility] Vaccine 00:00:[address] [facility] Influenza Virus 2019-07-04 Completed [facility] Vaccine Re[facility] 00:00:00 [facility], Preserv and ABX Branc h Free 18-64 YRS Influenza Virus 2019-07-04 Completed [facility] Vaccine 00:00:[address] [facility] Influenza Virus 2019-07-04 Completed [facility] Vaccine Re[facility] 00:00:00 [facility], Preserv and ABX Branc h Free 18-64 YRS Influenza Virus 2019-07-04 Completed [facility] Vaccine 00:00:[address] [facility] Influenza Virus 2019-07-04 Completed [facility] Vaccine Re[facility] 00:00:00 [facility], Preserv and ABX Branc h Free 18-64 YRS Influenza Virus 2019-07-04 Completed [facility] Vaccine 00:00:[address] [facility] Influenza Virus 2019-07-04 Completed [facility] Vaccine Re[facility] 00:00:00 [facility], Preserv and ABX Branc h Free 18-64 YRS Influenza Virus 2019-07-04 Completed [facility] Vaccine 00:00:[address] [facility] Influenza Virus 2019-07-04 Completed [facility] Vaccine [facility] 00:00:00 [facility], Preserv and ABX Branc h Free 18-64 YRS Influenza Virus 2019-07-04 Completed [facility] Vaccine 00:00:[address] [facility] Influenza Virus 2019-07-04 Completed [facility] 00:00:00 [facility], Preserv and ABX Branc h Free 18-64 YRS Influenza Virus 2019-07-04 Completed [facility] Vaccine 00:[facility]:[address] [facility] Influenza Virus 2019-07-04 Completed [facility] Recomb Quad 00:00:00 [facility], Preserv and ABX Branc h Free 18-64 YRS Influenza Virus 2019-07-04 Completed [facility] Vaccine 00:00:[address] [facility] Influenza Virus 2019-07-04 Completed [facility]ine Recomb Quad 00:00:00 [facility], Preserv and ABX Branc h Free 18-64 YRS Influenza Virus 2019-07-04 Completed [facility] Vaccine 00:00:[address] [facility] Influenza Virus 2019-07-04 Completed [facility]ine Recomb Quad 00:00:00 [facility], Preserv and ABX Branc h Free 18-64 YRS Influenza Virus 2019-07-04 Completed [facility] Vaccine 00:00:[address] [facility] Influenza Virus 2019-07-04 Completed [facility]ine Recomb Quad 00:00:00 [facility], Preserv and ABX Branc h Free 18-64 YRS Influenza Virus 2019-07-04 Completed [facility] Vaccine 00:00:[address] [facility] Influenza Virus 2019-07-04 Completed [facility]ine Recomb Quad 00:00:00 [facility], Preserv and ABX Branc h Free 18-64 YRS Influenza Virus 2019-07-04 Completed [facility] Vaccine 00:00:[address] [facility] Influenza Virus 2019-07-04 Completed [facility]ine Recomb Quad 00:00:00 [facility], Preserv and ABX Branc h Free 18-64 YRS Influenza Virus 2019-07-04 Completed [facility] Vaccine 00:00:[address] [facility] Influenza Virus 2019-07-04 Completed [facility]ine Recomb Quad 00:00:00 [facility], Preserv and ABX Branc h Free 18-64 YRS Influenza Virus 2019-07-04 Completed [facility] Vaccine 00:00:[address] [facility] Influenza Virus 2019-07-04 Completed [facility]ine Recomb Quad 00:00:00 [facility], Preserv and ABX Branc h Free 18-64 YRS Influenza Virus 2019-07-04 Completed [facility] Vaccine 00:00:[address] [facility] Influenza Virus 2019-07-04 Completed [facility]ine Recomb Quad 00:00:00 [facility] , Preserv and ABX Branc h Free 18-64 YRS Influenza Virus 2019-07-04 Completed [facility] Vaccine 00:00:[address] [facility] Influenza Virus 2019-07-04 Completed [facility]ine Recomb Quad 00:00:00 [facility], Preserv and ABX Branc h Free 18-64 YRS Influenza Virus 2018-06-30 Completed [facility] Quad IM 3+ 00:00:00 [facility] Influenza Virus 2018-06-30 Completed [facility] IM 3+ 00:00:00 [facility] Influenza Virus 2018-06-30 Completed [facility] Vaccine [facility] IM 3+ 00:00:00 [facility] Influenza Virus 2018-06-30 Completed [facility] Vaccine [facility] IM 3+ 00:00:00 [facility] Influenza Virus 2018-06-30 Completed [facility]ine [facility] IM 3+ 00:00:00 [facility] Influenza Virus 2018-06-30 Completed [facility] Vacc[facility] IM 3+ 00:00:00 [facility] Influenza Virus 2018-06-30 Completed [facility] IM 3+ 00:00:00 [facility] Influenza Virus 2018-06-30 Completed [facility] Vaccine [facility] IM 3+ 00:00:00 [facility] Influenza Virus 2018-06-30 Completed [facility] Vaccine [facility] IM 3+ 00:00:00 [facility] Influenza Virus 2018-06-30 Completed [facility] Vaccine [facility] IM 3+ 00:00:00 [facility] Influenza Virus 2018-06-30 Completed [facility] Vaccine [facility] IM 3+ 00:00:00 [facility] Influenza Virus 2018-06-30 Completed [facility] Vaccine [facility] IM 3+ 00:00:00 [facility] Influenza Virus 2018-06-30 Completed [facility] Vaccine [facility] IM 3+ 00:00:00 [facility] Influenza Virus 2018-06-30 Completed [facility] IM 3+ 00:00:00 [facility] Influenza Virus 2018-06-30 Completed [facility] Vaccine [facility] IM 3+ 00:00:00 [facility] Influenza Virus 2018-06-30 Completed [facility]ine [facility] IM 3+ 00:00:00 [facility] Influenza Virus 2018-06-30 Completed [facility] IM 3+ 00:00:00 [facility] Influenza Virus 2018-06-30 Completed [facility]ine [facility] IM 3+ 00:00:00 [facility] Influenza Virus 2018-06-30 Completed [facility]ine [facility] IM 3+ 00:00:00 [facility] Influenza Virus 2018-06-30 Completed [facility]ine [facility] IM 3+ 00:00:00 [facility] Influenza Virus 2018-06-30 Completed [facility] Vaccine [facility] IM 3+ 00:00:00 [facility] Influenza Virus 2018-06-30 Completed [facility] Vaccine [facility] IM 3+ 00:00:00 [facility] Influenza Virus 2018-06-30 Completed [facility] Vaccine [facility] IM 3+ 00:00:00 [facility] Influenza Virus 2018-06-30 Completed [facility] Vaccine [facility] IM 3+ 00:00:00 [facility] Influenza Virus 2018-06-30 Completed [facility] Vaccine [facility] IM 3+ 00:00:00 [facility] Influenza Virus 2018-06-30 Completed [facility] Vaccine [facility] IM 3+ 00:00:00 [facility] Influenza Virus 2018-06-30 Completed [facility] Vaccine [facility] IM 3+ 00:00:00 [facility] Influenza Virus 2018-06-30 Completed [facility] Vaccine [facility] IM 3+ 00:00:00 [facility] Influenza Virus 2018-06-30 Completed [facility] Vaccine [facility] IM 3+ 00:00:00 [facility] Influenza Virus 2018-06-30 Completed [facility] Vaccine [facility] IM 3+ 00:00:00 [facility] Influenza Virus 2018-06-30 Completed [facility] Vaccine [facility] IM 3+ 00:00:00 [facility] Influenza Virus 2018-06-30 Completed [facility]ine [facility] IM 3+ 00:00:00 [facility] Influenza Virus 2018-06-30 Completed [facility] Vaccine [facility] IM 3+ 00:00:00 [facility] Influenza Virus 2018-06-30 Completed [facility]ine [facility] IM 3+ 00:00:00 [facility] Influenza Virus 2018-06-30 Completed [facility]ine [facility] IM 3+ 00:00:00 [facility] Influenza Virus 2018-06-30 Completed [facility] Vaccine [facility] IM 3+ 00:00:00 [facility] Influenza Virus 2018-06-30 Completed [facility]ine [facility] IM 3+ 00:00:00 [facility] Influenza Virus 2018-06-30 Completed [facility] Vaccine [facility] IM 3+ 00:00:00 [facility] Influenza Virus 2018-06-30 Completed [facility] Vaccine [facility] IM 3+ 00:00:00 [facility] Influenza Virus 2018-06-30 Completed [facility] Vaccine [facility] IM 3+ 00:00:00 [facility] Influenza Virus 2018-06-30 Completed [facility] Vaccine [facility] IM 3+ 00:00:00 [facility] Influenza Virus 2018-06-30 Completed [facility] Vaccine Quad IM 3+ 00:00:00 [facility] Influenza Virus 2018-06-30 Completed [facility] Vaccine Quad IM 3+ 00:00:00 [facility] Influenza Virus 2018-06-30 Completed [facility] Vaccine Quad IM 3+ 00:00:00 [facility] Influenza Virus 2018-06-30 Completed [facility] Vaccine Quad IM 3+ 00:00:00 [facility] Influenza Virus 2018-06-30 Completed [facility] Vaccine Quad IM 3+ 00:00:00 [facility] Influenza Virus 2018-06-30 Completed [facility] Vaccine [facility] IM 3+ 00:00:00 [facility] Influenza Virus 2018-06-30 Completed [facility] Vaccine [facility] IM 3+ 00:00:00 [facility] Influenza Virus 2018-06-30 Completed [facility] Vaccine [facility] IM 3+ 00:00:00 [facility] Influenza Virus 2018-06-30 Completed [facility] Vaccine [facility] IM 3+ 00:00:00 [facility] Influenza Virus 2018-06-30 Completed [facility] Vaccine [facility] IM 3+ 00:00:00 [facility] Influenza Virus 2018-06-30 Completed [facility] Vaccine [facility] IM 3+ 00:00:00 [facility] Influenza Virus 2018-06-30 Completed [facility] Vaccine [facility] IM 3+ 00:00:00 [facility] Influenza Virus 2018-06-30 Completed [facility] Vaccine [facility] IM 3+ 00:00:00 [facility] Influenza Virus 2018-06-30 Completed [facility] Vaccine [facility] IM 3+ 00:00:00 [facility] Influenza Virus 2018-06-30 Completed [facility]ine [facility] IM 3+ 00:00:00 [facility] Influenza Virus 2018-06-30 Completed [facility] Vaccine [facility] IM 3+ 00:00:00 [facility] Influenza Virus 2018-06-30 Completed [facility] Vaccine [facility] IM 3+ 00:00:00 [facility] Influenza Virus 2018-06-30 Completed [facility] Vaccine [facility] IM 3+ 00:00:00 [facility] Influenza Virus 2018-06-30 Completed [facility] Vaccine [facility] IM 3+ 00:00:00 [facility] Influenza Virus 2018-06-30 Completed [facility] Vaccine Quad IM 3+ 00:00:00 [facility] Influenza Virus 2018-06-30 Completed [facility] Vaccine Quad IM 3+ 00:00:00 [facility] Influenza Virus 2018-06-30 Completed [facility] Vaccine Quad IM 3+ 00:00:00 [facility] Influenza Virus 2018-06-30 Completed [facility] Vaccine Quad IM 3+ 00:00:00 [facility] Influenza Virus 2018-06-30 Completed [facility] Vaccine Quad IM 3+ 00:00:00 [facility] Influenza Virus 2018-06-30 Completed [facility] Vaccine Quad IM 3+ 00:00:00 [facility] Influenza Virus 2018-06-30 Completed [facility] Vaccine Quad IM 3+ 00:00:00 [facility] Influenza Virus 2018-06-30 Completed [facility] Vaccine Quad IM 3+ 00:00:00 [facility] Influenza Virus 2018-06-30 Completed [facility] Vaccine Quad IM 3+ 00:00:00 [facility] Influenza Virus 2018-06-30 Completed [facility] Vaccine Quad IM 3+ 00:00:00 [facility] Influenza Virus 2018-06-30 Completed [facility] Vaccine Quad IM 3+ 00:00:00 [facility] Influenza Virus 2018-06-30 Completed [facility] Vaccine Quad IM 3+ 00:00:00 [facility] Influenza Virus 2018-06-30 Completed [facility] Vaccine Quad IM 3+ 00:00:00 [facility] Influenza Virus 2018-06-30 Completed [facility] Vaccine Quad IM 3+ 00:00:00 [facility] Influenza Virus 2018-06-30 Completed [facility] Vaccine Quad IM 3+ 00:00:00 [facility] Influenza Virus 2018-06-30 Completed [facility] Vaccine Quad IM 3+ 00:00:00 [facility] Influenza Virus 2018-06-30 Completed [facility] Vaccine Quad IM 3+ 00:00:00 [facility] Influenza Virus 2018-06-30 Completed [facility] Vaccine Quad IM 3+ 00:00:00 [facility] Influenza Virus 2018-06-30 Completed [facility] Vaccine Quad IM 3+ 00:00:00 [facility] Influenza Virus 2018-06-30 Completed [facility] Vaccine Quad IM 3+ 00:00:00 [facility] Influenza Virus 2018-06-30 Completed [facility] Vaccine Quad IM 3+ 00:00:00 [facility] Influenza Virus 2018-06-30 Completed [facility] Vaccine Quad IM 3+ 00:00:00 [facility] Influenza Virus 2018-06-30 Completed [facility] Vaccine Quad IM 3+ 00:00:00 [facility] Influenza Virus 2018-06-30 Completed [facility] Vaccine Quad IM 3+ 00:00:00 [facility] Influenza Virus 2018-06-30 Completed [facility] Vaccine Quad IM 3+ 00:00:00 [facility] Influenza Virus 2018-06-30 Completed [facility] Vaccine Quad IM 3+ 00:00:00 [facility] Influenza Virus 2018-06-30 Completed [facility] Vaccine Quad IM 3+ 00:00:00 [facility] Influenza Virus 2018-06-30 Completed [facility] Vaccine Quad IM 3+ 00:00:00 [facility] Influenza Virus 2018-06-30 Completed [facility] Vaccine Quad IM 3+ 00:00:00 [facility] Influenza Virus 2018-06-30 Completed [facility] Vaccine Quad IM 3+ 00:00:00 [facility] Influenza Virus 2018-06-30 Completed [facility] Vaccine Quad IM 3+ 00:00:00 [facility] Influenza Virus 2018-06-30 Completed [facility] Vaccine Quad IM 3+ 00:00:00 [facility] Influenza Virus 2018-06-30 Completed [facility] Vaccine Quad IM 3+ 00:00:00 [facility] Influenza Virus 2018-06-30 Completed [facility] Vaccine Quad IM 3+ 00:00:00 [facility] Influenza Virus 2018-06-30 Completed [facility] Vaccine Quad IM 3+ 00:00:00 [facility] Influenza Virus 2018-06-30 Completed [facility] Vaccine Quad IM 3+ 00:00:00 [facility] Influenza Virus 2018-06-30 Completed [facility] Vaccine Quad IM 3+ 00:00:00 [facility] Influenza Virus 2018-06-30 Completed [facility] Vaccine Quad IM 3+ 00:00:00 [facility] Influenza Virus 2018-06-30 Completed [facility] Vaccine Quad IM 3+ 00:00:00 [facility] Influenza Virus 2018-06-30 Completed [facility] Vaccine Quad IM 3+ 00:00:00 [facility] Influenza Virus 2018-06-30 Completed [facility] Vaccine Quad IM 3+ 00:00:00 [facility] Influenza Virus 2018-06-30 Completed [facility] Vaccine Quad IM 3+ 00:00:00 [facility] Influenza Virus 2018-06-30 Completed [facility] Vaccine Quad IM 3+ 00:00:00 [facility] Influenza Virus 2018-06-30 Completed [facility] Vaccine [facility] IM 3+ 00:00:00 [facility] Influenza Virus 2018-06-30 Completed [facility] Vaccine Quad IM 3+ 00:00:00 [facility] Influenza Virus 2018-06-30 Completed [facility] Vaccine Quad IM 3+ 00:00:00 [facility] Influenza Virus 2018-06-30 Completed [facility] Vaccine Quad IM 3+ 00:00:00 [facility] Influenza Virus 2018-06-30 Completed [facility] Vaccine Quad IM 3+ 00:00:00 [facility] Influenza Virus 2018-06-30 Completed [facility] Vaccine Quad IM 3+ 00:00:00 [facility] Influenza Virus 2018-06-30 Completed [facility] Vaccine Quad IM 3+ 00:00:00 [facility] Influenza Virus 2018-06-30 Completed [facility] Vaccine Quad IM 3+ 00:00:00 [facility] Influenza Virus 2018-06-30 Completed [facility] Vaccine [facility] IM 3+ 00:00:00 [facility] Influenza Virus 2018-06-30 Completed [facility] Vaccine Quad IM 3+ 00:00:00 [facility] Influenza Virus 2018-06-30 Completed [facility] Vaccine Quad IM 3+ 00:00:00 [facility] Influenza Virus 2018-06-30 Completed [facility] Vaccine Quad IM 3+ 00:00:00 [facility] Influenza Virus 2018-06-30 Completed [facility] Vaccine Quad IM 3+ 00:00:00 [facility] Influenza Virus 2018-06-30 Completed [facility] Vaccine Quad IM 3+ 00:00:00 [facility] Influenza Virus 2018-06-30 Completed [facility] Vaccine Quad IM 3+ 00:00:00 [facility] Influenza Virus 2018-06-30 Completed [facility] Vaccine Quad IM 3+ 00:00:00 [facility] Influenza Virus 2018-06-30 Completed [facility] Vaccine Quad IM 3+ 00:00:00 [facility] Influenza Virus 2018-06-30 Completed [facility] Vaccine Quad IM 3+ 00:00:00 [facility] Influenza Virus 2018-06-30 Completed [facility] Vaccine Quad IM 3+ 00:00:00 [facility] Influenza Virus 2018-06-30 Completed [facility] Vaccine Quad IM 3+ 00:00:00 [facility] Influenza Virus 2018-06-30 Completed [facility] Vaccine Quad IM 3+ 00:00:00 [facility] Influenza Virus 2018-06-30 Completed [facility] Vaccine Quad IM 3+ 00:00:00 [facility] Influenza Virus 2018-06-30 Completed [facility] Vaccine Quad IM 3+ 00:00:00 [facility] Influenza Virus 2018-06-30 Completed [facility] Vaccine Quad IM 3+ 00:00:00 [facility] Influenza Virus 2018-06-30 Completed [facility] Vaccine Quad IM 3+ 00:00:00 [facility] Influenza Virus 2018-06-30 Completed [facility] Vaccine Quad IM 3+ 00:00:00 [facility] Influenza Virus 2018-06-30 Completed [facility] Vaccine Quad IM 3+ 00:00:00 [facility] Influenza Virus 2018-06-30 Completed [facility] Vaccine Quad IM 3+ 00:00:00 [facility] Influenza Virus 2018-06-30 Completed [facility] Vaccine Quad IM 3+ 00:00:00 [facility] Influenza Virus 2018-06-30 Completed [facility] Vaccine Quad IM 3+ 00:00:00 [facility] Influenza Virus 2017-06-15 Completed [facility] Vaccine Quad ID 00:00:00 [facility] ical 18-64 YRS Branch Influenza Virus 2017-06-15 Completed [facility] Vaccine Quad ID 00:00:00 [facility] ical 18-64 YRS Chromo Influenza Virus 2017-06-15 Completed [facility] of Vaccine Quad ID 00:00:00 [facility] ical 18-64 YRS Chromo Influenza Virus 2017-06-15 Completed [facility] Vaccine Quad ID 00:00:00 [facility] ical 18-64 YRS Chromo Influenza Virus 2017-06-15 Completed [facility] Vaccine Quad ID 00:00:00 [facility] ical 18-64 YRS Chromo Influenza Virus 2017-06-15 Completed [facility] Vaccine Quad ID 00:00:00 [facility] ical 18-64 YRS Chromo Influenza Virus 2017-06-15 Completed [facility] Vaccine Quad ID 00:00:00 [facility] ical 18-64 YRS Chromo Influenza Virus 2017-06-15 Completed [facility] Vaccine Quad ID 00:00:00 [facility] ical 18-64 YRS Chromo Influenza Virus 2017-06-15 Completed [facility] Vaccine Quad ID 00:00:00 [facility] ical 18-64 YRS Chromo Influenza Virus 2017-06-15 Completed [facility] Vaccine Quad ID 00:00:00 [facility] ical 18-64 YRS Branch Influenza Virus 2017-06-15 Completed [facility] Vaccine Quad ID 00:00:00 [facility] ical 18-64 YRS Branch Influenza Virus 2017-06-15 Completed [facility] Vaccine Quad ID 00:00:00 [facility] ical 18-64 YRS Branch Influenza Virus 2017-06-15 Completed [facility] Vaccine Quad ID 00:00:00 [facility] ical 18-64 YRS Branch Influenza Virus 2017-06-15 Completed [facility] Vaccine Quad ID 00:00:00 [facility] ical 18-64 YRS Branch Influenza Virus 2017-06-15 Completed [facility] Vaccine Quad ID 00:00:00 [facility] ical 18-64 YRS Branch Influenza Virus 2017-06-15 Completed [facility] Vaccine Quad ID 00:00:00 [facility] ical 18-64 YRS Branch Influenza Virus 2017-06-15 Completed [facility] Vaccine Quad ID 00:00:00 [facility] ical 18-64 YRS Branch Influenza Virus 2017-06-15 Completed [facility] Vaccine Quad ID 00:00:00 [facility] ical 18-64 YRS Branch Influenza Virus 2017-06-15 Completed [facility] Vaccine Quad ID 00:00:00 [facility] ical 18-64 YRS Branch Influenza Virus 2017-06-15 Completed [facility] Vaccine Quad ID 00:00:00 [facility] ical 18-64 YRS Branch Influenza Virus 2017-06-15 Completed [facility] Vaccine Quad ID 00:00:00 [facility] ical 18-64 YRS Branch Influenza Virus 2017-06-15 Completed [facility] Vaccine Quad ID 00:00:00 [facility] ical 18-64 YRS Branch Influenza Virus 2017-06-15 Completed [facility] Vaccine Quad ID 00:00:00 [facility] ical 18-64 YRS Branch Influenza Virus 2017-06-15 Completed [facility] Vaccine Quad ID 00:00:00 [facility] ical 18-64 YRS Branch Influenza Virus 2017-06-15 Completed [facility] Vaccine Quad ID 00:00:00 [facility] ical 18-64 YRS Branch Influenza Virus 2017-06-15 Completed [facility] Vaccine Quad ID 00:00:00 [facility] ical 18-64 YRS Branch Influenza Virus 2017-06-15 Completed [facility] Vaccine Quad ID 00:00:00 [facility] ical 18-64 YRS Branch Influenza Virus 2017-06-15 Completed [facility] Vaccine Quad ID 00:00:00 [facility] ical 18-64 YRS Branch Influenza Virus 2017-06-15 Completed [facility] Vaccine Quad ID 00:00:00 [facility] ical 18-64 YRS Branch Influenza Virus 2017-06-15 Completed [facility] Vaccine Quad ID 00:00:00 [facility] ical 18-64 YRS Branch Influenza Virus 2017-06-15 Completed [facility] Vaccine Quad ID 00:00:00 [facility] ical 18-64 YRS Branch Influenza Virus 2017-06-15 Completed [facility] Vaccine Quad ID 00:00:00 [facility] ical 18-64 YRS Branch Influenza Virus 2017-06-15 Completed [facility] Vaccine Quad ID 00:00:00 [facility] ical 18-64 YRS Branch Influenza Virus 2017-06-15 Completed [facility] Vaccine Quad ID 00:00:00 [facility] ical 18-64 YRS Branch Influenza Virus 2017-06-15 Completed [facility] Vaccine Quad ID 00:00:00 [facility] ical 18-64 YRS Branch Influenza Virus 2017-06-15 Completed [facility] Vaccine Quad ID 00:00:00 [facility] ical 18-64 YRS Branch Influenza Virus 2017-06-15 Completed [facility] Vaccine Quad ID 00:00:00 [facility] ical 18-64 YRS Branch Influenza Virus 2017-06-15 Completed [facility] Vaccine Quad ID 00:00:00 [facility] ical 18-64 YRS Branch Influenza Virus 2017-06-15 Completed [facility] Vaccine Quad ID 00:00:00 [facility] ical 18-64 YRS Branch Influenza Virus 2017-06-15 Completed [facility] Vaccine Quad ID 00:00:00 [facility] ical 18-64 YRS Branch Influenza Virus 2017-06-15 Completed [facility] Vaccine Quad ID 00:00:00 [facility] ical 18-64 YRS Branch Influenza Virus 2017-06-15 Completed [facility] Vaccine Quad ID 00:00:00 [facility] ical 18-64 YRS Branch Influenza Virus 2017-06-15 Completed [facility] Vaccine Quad ID 00:00:00 [facility] ical 18-64 YRS Branch Influenza Virus 2017-06-15 Completed [facility] Vaccine Quad ID 00:00:00 [facility] ical 18-64 YRS Branch Influenza Virus 2017-06-15 Completed [facility] Vaccine Quad ID 00:00:00 [facility] ical 18-64 YRS Branch Influenza Virus 2017-06-15 Completed [facility] Vaccine Quad ID 00:00:00 [facility] ical 18-64 YRS Branch Influenza Virus 2017-06-15 Completed [facility] Vaccine Quad ID 00:00:00 [facility] ical 18-64 YRS Branch Influenza Virus 2017-06-15 Completed [facility] Vaccine Quad ID 00:00:00 [facility] ical 18-64 YRS Branch Influenza Virus 2017-06-15 Completed [facility] Vaccine Quad ID 00:00:00 [facility] ical 18-64 YRS Branch Influenza Virus 2017-06-15 Completed [facility] Vaccine Quad ID 00:00:00 [facility] ical 18-64 YRS Branch Influenza Virus 2017-06-15 Completed [facility] Vaccine Quad ID 00:00:00 [facility] ical 18-64 YRS Branch Influenza Virus 2017-06-15 Completed [facility] Vaccine Quad ID 00:00:00 [facility] ical 18-64 YRS Branch Influenza Virus 2017-06-15 Completed [facility] Vaccine [facility] ID 00:00:00 [place] [facility] 18-[facility] Y[facility] Influenza Virus 2017-06-15 Completed [facility] ID 00:00:00 [place] [facility] 18-[facility] Y[facility] Influenza Virus 2017-06-15 Completed [facility] Vaccine [facility] ID 00:00:00 [place] [facility] 18-64 Y[facility] Branch Influenza Virus 2017-06-15 Completed [facility] Vaccine Quad ID 00:00:00 [facility] ical 18-64 YRS Branch Influenza Virus 2017-06-15 Completed [facility] of Vaccine Quad ID 00:00:00 [facility] ical 18-64 YRS Branch Influenza Virus 2017-06-15 Completed [facility] Vaccine Quad ID 00:00:00 [facility] ical 18-64 YRS Branch Influenza Virus 2017-06-15 Completed [facility] Vaccine Quad ID 00:00:00 [facility] ical 18-64 YRS Branch Influenza Virus 2017-06-15 Completed [facility] of Vaccine Quad ID 00:00:00 [facility] ical 18-64 YRS Branch Influenza Virus 2017-06-15 Completed [facility] Vaccine Quad ID 00:00:00 [facility] ical 18-64 YRS Branch Influenza Virus 2017-06-15 Completed [facility] of Vaccine Quad ID 00:00:00 [facility] ical 18-64 YRS Branch Influenza Virus 2017-06-15 Completed [facility] of Vaccine Quad ID 00:00:00 [facility] ical 18-64 YRS Branch Influenza Virus 2017-06-15 Completed [facility] Vaccine Quad ID 00:00:00 [place] [facility] 18-64 Y[facility] Branch Influenza Virus 2017-06-15 Completed [facility] Vaccine Quad ID 00:00:00 [facility] ical 18-64 YRS Branch Influenza Virus 2017-06-15 Completed [facility] Vaccine [facility] ID 00:00:00 [place] [facility] 18-64 Y[facility] Branch Influenza Virus 2017-06-15 Completed [facility] Vaccine Quad ID 00:00:00 [facility] ical 18-64 YRS Branch Influenza Virus 2017-06-15 Completed [facility] Vaccine [facility] ID 00:00:00 [place] [facility] 18-64 Y[facility] Branch Influenza Virus 2017-06-15 Completed [facility] Vaccine [facility] ID 00:00:00 [place] [facility] 18-64 Y[facility] Branch Influenza Virus 2017-06-15 Completed [facility] Vaccine Quad ID 00:00:00 [facility] ical 18-64 YRS Branch Influenza Virus 2017-06-15 Completed [facility] Vaccine [facility] ID 00:00:00 [place] [facility] 18-64 Y[facility] Branch Influenza Virus 2017-06-15 Completed [facility] Vaccine [facility] ID 00:00:00 [place] [facility] 18-64 Y[facility] Branch Influenza Virus 2017-06-15 Completed [facility] Vaccine [facility] ID 00:00:00 [place] [facility] 18-64 Y[facility] Branch Influenza Virus 2017-06-15 Completed [facility] Vaccine Quad ID 00:00:00 [facility] ical 18-64 YRS Branch Influenza Virus 2017-06-15 Completed [facility] Vaccine Quad ID 00:00:00 [facility] ical 18-64 YRS Branch Influenza Virus 2017-06-15 Completed [facility] Vaccine [facility] ID 00:00:00 [facility] ical 18-64 YRS Branch Influenza Virus 2017-06-15 Completed [facility] Vaccine [facility] ID 00:00:00 [facility] ical 18-64 YRS Branch Influenza Virus 2017-06-15 Completed [facility] Vaccine Quad ID 00:00:00 [facility] ical 18-64 YRS Branch Influenza Virus 2017-06-15 Completed [facility] Vaccine Quad ID 00:00:00 [facility] ical 18-64 YRS Branch Influenza Virus 2017-06-15 Completed [facility] Vaccine [facility] ID 00:00:00 [place] [facility] 18-64 Y[facility] Branch Influenza Virus 2017-06-15 Completed [facility] Vaccine [facility] ID 00:00:00 [place] [facility] 18-64 Y[facility] Branch Influenza Virus 2017-06-15 Completed [facility] Vaccine [facility] ID 00:00:00 [place] [facility] 18-64 Y[facility] Branch Influenza Virus 2017-06-15 Completed [facility] Vaccine [facility] ID 00:00:00 [place] [facility] 18-64 Y[facility] Branch Influenza Virus 2017-06-15 Completed [facility] Vaccine [facility] ID 00:00:00 [facility] ical 18-64 YRS Branch Influenza Virus 2017-06-15 Completed [facility] Vaccine [facility] ID 00:00:00 [place] [facility] 18-64 Y[facility] Branch Influenza Virus 2017-06-15 Completed [facility] Vaccine [facility] ID 00:00:00 [place] [facility] 18-64 Y[facility] Branch Influenza Virus 2017-06-15 Completed [facility] Vaccine [facility] ID 00:00:00 [facility] ical 18-64 YRS Branch Influenza Virus 2017-06-15 Completed [facility] Vaccine [facility] ID 00:00:00 [place] [facility] 18-64 Y[facility] Branch Influenza Virus 2017-06-15 Completed [facility] Vaccine [facility] ID 00:00:00 [place] [facility] 18-64 Y[facility] Branch Influenza Virus 2017-06-15 Completed [facility] Vaccine [facility] ID 00:00:00 [place] [facility] 18-64 Y[facility] Branch Influenza Virus 2017-06-15 Completed [facility] Vaccine [facility] ID 00:00:00 [facility] ical 18-64 YRS Chromo Influenza Virus 2017-06-15 Completed [facility] Vaccine [facility] ID 00:00:00 [facility] ical 18-64 YRS Branch Influenza Virus 2017-06-15 Completed [facility] Vaccine [facility] ID 00:00:00 [facility] ical 18-64 YRS Branch Influenza Virus 2017-06-15 Completed [facility] Vaccine Quad ID 00:00:00 [facility] ical 18-64 YRS Branch Influenza Virus 2017-06-15 Completed [facility] Vaccine Quad ID 00:00:00 [facility] ical 18-64 YRS Chromo Influenza Virus 2017-06-15 Completed [facility] Vaccine [facility] ID 00:00:00 [facility] ical 18-64 YRS Branch Influenza Virus 2017-06-15 Completed [facility] Vaccine [facility] ID 00:00:00 [facility] ical 18-64 YRS Branch Influenza Virus 2017-06-15 Completed [facility] Vaccine [facility] ID 00:00:00 [place] [facility] 18-[facility] Y[facility] Branch Influenza Virus 2017-06-15 Completed [facility] Vaccine [facility] ID 00:00:00 [place] [facility] 18-64 Y[facility] Branch Influenza Virus 2017-06-15 Completed [facility] Vaccine [facility] ID 00:00:00 [place] [facility] 18-64 Y[facility] Branch Influenza Virus 2017-06-15 Completed [facility] Vaccine Quad ID 00:00:00 [facility] ical 18-64 YRS Branch Influenza Virus 2017-06-15 Completed [facility] Vaccine [facility] ID 00:00:00 [place] [facility] 18-64 Y[facility] Branch Influenza Virus 2017-06-15 Completed [facility] Vaccine [facility] ID 00:00:00 [place] [facility] 18-64 Y[facility] Branch Influenza Virus 2017-06-15 Completed [facility] Vaccine [facility] ID 00:00:00 [place] [facility] 18-64 Y[facility] Branch Influenza Virus 2017-06-15 Completed [facility] Vaccine [facility] ID 00:00:00 [place] [facility] 18-64 Y[facility] Branch Influenza Virus 2017-06-15 Completed [facility] Vaccine [facility] ID 00:00:00 [place] [facility] 18-64 Y[facility] Branch Influenza Virus 2017-06-15 Completed [facility] Vaccine [facility] ID 00:00:00 [place] [facility] 18-64 Y[facility] Branch Influenza Virus 2017-06-15 Completed [facility] Vaccine [facility] ID 00:00:00 [facility] ical 18-64 YRS Branch Influenza Virus 2017-06-15 Completed [facility] Vaccine [facility] ID 00:00:00 [facility] ical 18-64 YRS Branch Influenza Virus 2017-06-15 Completed [facility] Vaccine [facility] ID 00:00:00 [facility] ical 18-64 YRS Branch Influenza Virus 2017-06-15 Completed [facility] Vaccine Quad ID 00:00:00 [facility] ical 18-64 YRS Branch Influenza Virus 2017-06-15 Completed [facility] Vaccine Quad ID 00:00:00 [facility] ical 18-64 YRS Branch Influenza Virus 2017-06-15 Completed [facility] Vaccine Quad ID 00:00:00 [facility] ical 18-64 YRS Branch Influenza Virus 2017-06-15 Completed [facility] Vaccine Quad ID 00:00:00 [facility] ical 18-64 YRS Branch Influenza Virus 2017-06-15 Completed [facility] Vaccine [facility] ID 00:00:00 [place] [facility] 18-64 Y[facility] Branch Influenza Virus 2017-06-15 Completed [facility] Vaccine [facility] ID 00:00:00 [place] [facility] 18-64 YRS Branch Influenza Virus 2017-06-15 Completed [facility] Vaccine [facility] ID 00:00:00 [place] [facility] 18-64 Y[facility] Branch Influenza Virus 2017-06-15 Completed [facility] Vaccine [facility] ID 00:00:00 [place] [facility] 18-64 Y[facility] Branch Influenza Virus 2017-06-15 Completed [facility] Vaccine [facility] ID 00:00:00 [place] [facility] 18-64 Y[facility] Branch Influenza Virus 2017-06-15 Completed [facility] Vaccine [facility] ID 00:00:00 [place] [facility] 18-64 Y[facility] Branch Influenza Virus 2017-06-15 Completed [facility] Vaccine [facility] ID 00:00:00 [place] [facility] 18-64 YRS Branch Influenza Virus 2017-06-15 Completed [facility] Vaccine [facility] ID 00:00:00 [place] [facility] 18-64 Y[facility] Branch Influenza Virus 2017-06-15 Completed [facility] Vaccine [facility] ID 00:00:00 [place] [facility] 18-64 Y[facility] Branch Influenza Virus 2017-06-15 Completed [facility] Vaccine [facility] ID 00:00:00 [place] [facility] 18-64 Y[facility] Branch Influenza Virus 2017-06-15 Completed [facility] Vaccine [facility] ID 00:00:00 [place] [facility] 18-64 Y[facility] Branch Influenza Virus 2017-06-15 Completed [facility] Vaccine [facility] ID 00:00:00 [place] [facility] 18-64 Y[facility] Branch Influenza Virus 2017-06-15 Completed [facility] Vaccine [facility] ID 00:00:00 [place] [facility] 18-64 Y[facility] Branch Influenza Virus 2017-06-15 Completed [facility] Vaccine [facility] ID 00:00:00 [place] [facility] 18-64 Y[facility] Branch Influenza Virus 2017-06-15 Completed [facility] Vaccine [facility] ID 00:00:00 [place] [facility] 18-64 Y[facility] Branch Influenza Virus 2017-06-15 Completed [facility] Vaccine [facility] ID 00:00:00 [place] [facility] 18-64 Y[facility] Branch Influenza Virus 2017-06-15 Completed [facility] Vaccine [facility] ID 00:00:00 [place] [facility] 18-64 Y[facility] Branch Influenza Virus 2017-06-15 Completed [facility] Vaccine [facility] ID 00:00:00 [place] [facility] 18-64 Y[facility] Branch Influenza Virus 2017-06-15 Completed [facility] Vaccine [facility] ID 00:00:00 [place] [facility] 18-64 Y[facility] Branch Influenza Virus 2016-08-05 Completed [facility] [...] [facility] Vacc[facility] IM 00:00:00 [facility] ica Multi-dose 6+ MO Branch Pneumococcal 13 2016-03-07 Completed [facility] of Conjugate, PCV13 00:00:00 [place] [facility] (Prevnar 13) Branch Meningococcal B, OMV 2016-03-07 Completed [facility] ersity of 00:00:[address] [facility] Pneumococcal 13 2016-03-07 Completed [facility] of Conjugate, PCV13 00:00:00 [facility] dical (Prevnar 13) Branch Meningococcal B, OMV 2016-03-07 Completed Univ ersity of 00:00:[address] [facility] Pneumococcal 13 2016-03-07 Completed [facility] of Conjugate, PCV13 00:00:00 [facility] dical (Prevnar 13) Branch Meningococcal B, V 2016-03-07 Completed Univ ersity of 00:00:[address] [facility] Pneumococcal 13 2016-03-07 Completed [facility] of Conjugate, PCV13 00:00:00 [place] [facility] (Prevnar 13) Branch Meningococcal B, V 2016-03-07 Completed Univ ersity of 00:00:[address] [facility] Pneumococcal 13 2016-03-07 Completed [facility] of Conjugate, PCV13 00:00:00 [place] [facility] (Prevnar 13) Branch Meningococcal B, V 2016-03-07 Completed Univ ersity of 00:00:[address] [facility] Pneumococcal 13 2016-03-07 Completed [facility] of Conjugate, PCV13 00:00:00 [place] [facility] (Prevnar 13) Branch Meningococcal B, V 2016-03-07 Completed Univ ersity of 00:00:[address] [facility] Pneumococcal 13 2016-03-07 Completed [facility] of Conjugate, PCV13 00:00:00 [place] [facility] (Prevnar 13) Branch Meningococcal B, V 2016-03-07 Completed Univ ersity of 00:00:[address] [facility] Pneumococcal 13 2016-03-07 Completed [facility] of Conjugate, PCV13 00:00:00 [place] [facility] (Prevnar 13) Branch Meningococcal B, OMV 2016-03-07 Completed Univ ersity of 00:00:[address] [facility] Pneumococcal 13 2016-03-07 Completed [facility] of Conjugate, PCV13 00:00:00 [place] [facility] (Prevnar 13) Branch Meningococcal B, V 2016-03-07 Completed Univ ersity of 00:00:00 [facility] Branch Pneumococcal 13 2016-03-07 Completed [facility] of Conjugate, PCV13 00:00:00 [place] [facility] (Prevnar 13) Branch Meningococcal B, V 2016-03-07 Completed [facility] ersity of 00:00:00 [facility] Branch Pneumococcal 13 2016-03-07 Completed [facility] of Conjugate, PCV13 00:00:00 [place] [facility] (Prevnar 13) Branch Meningococcal B, V 2016-03-07 Completed [facility] ersity of 00:00:00 [facility] Branch Pneumococcal 13 2016-03-07 Completed [facility] of Conjugate, PCV13 00:00:00 [place] [facility] (Prevnar 13) Branch Meningococcal B, V 2016-03-07 Completed Univ ersity of 00:00:[address] [facility] Pneumococcal 13 2016-03-07 Completed [facility] of Conjugate, PCV13 00:00:00 [place] [facility] (Prevnar 13) Branch Meningococcal B, V 2016-03-07 Completed Univ ersity of 00:00:[address] [facility] Pneumococcal 13 2016-03-07 Completed [facility] of Conjugate, PCV13 00:00:00 [place] [facility] (Prevnar 13) Branch Meningococcal B, [facility] 2016-03-07 Completed Univ ersity of 00:00:[address] [facility] Pneumococcal 13 2016-03-07 Completed [facility] of Conjugate, PCV13 00:00:00 [place] [facility] (Prevnar 13) Branch Meningococcal B, V 2016-03-07 Completed Univ ersity of 00:00:[address] [facility] Pneumococcal 13 2016-03-07 Completed [facility] of Conjugate, PCV13 00:00:00 [place] [facility] (Prevnar 13) Branch Meningococcal B, V 2016-03-07 Completed Univ ersity of 00:00:[address] [facility] Pneumococcal 13 2016-03-07 Completed [facility] of Conjugate, PCV13 00:00:00 [place] [facility] (Prevnar 13) Branch Meningococcal B, V 2016-03-07 Completed Univ ersity of 00:00:[address] [facility] Pneumococcal 13 2016-03-07 Completed [facility] of Conjugate, PCV13 00:00:00 [place] [facility] (Prevnar 13) Branch Meningococcal B, V 2016-03-07 Completed [facility] ersity of 00:00:00 [facility] Branch Pneumococcal 13 2016-03-07 Completed [facility] of Conjugate, PCV13 00:00:00 [place] [facility] (Prevnar 13) Branch Meningococcal B, V 2016-03-07 Completed Univ ersity of 00:00:00 [facility] Branch Pneumococcal 13 2016-03-07 Completed [facility] of Conjugate, PCV13 00:00:00 [place] [facility] (Prevnar 13) Branch Meningococcal B, V 2016-03-07 Completed [facility] ersity of 00:00:00 [facility] Branch Pneumococcal 13 2016-03-07 Completed [facility] of Conjugate, PCV13 00:00:00 [place] [facility] (Prevnar 13) Branch Meningococcal B, V 2016-03-07 Completed [facility] ersity of 00:00:00 [facility] Branch Pneumococcal 13 2016-03-07 Completed [facility] of Conjugate, PCV13 00:00:00 [place] [facility] (Prevnar 13) Branch Meningococcal B, V 2016-03-07 Completed Univ ersity of 00:00:[address] [facility] Pneumococcal 13 2016-03-07 Completed [facility] of Conjugate, PCV13 00:00:00 [place] [facility] (Prevnar 13) Branch Meningococcal B, [facility] 2016-03-07 Completed Univ ersity of 00:00:[address] [facility] Pneumococcal 13 2016-03-07 Completed [facility] y of Conjugate, PCV13 00:00:00 [place] [facility] (Prevnar 13) Branch Meningococcal B, V 2016-03-07 Completed Univ ersity of 00:00:[address] [facility] Pneumococcal 13 2016-03-07 Completed [facility] y of Conjugate, PCV13 00:00:00 [place] [facility] (Prevnar 13) Branch Meningococcal B, V 2016-03-07 Completed Univ ersity of 00:00:[address] [facility] Pneumococcal 13 2016-03-07 Completed [facility] y of Conjugate, PCV13 00:00:00 [place] [facility] (Prevnar 13) Branch Meningococcal B, V 2016-03-07 Completed Univ ersity of 00:00:[address] [facility] Pneumococcal 13 2016-03-07 Completed [facility] y of Conjugate, PCV13 00:00:00 [place] [facility] (Prevnar 13) Branch Meningococcal B, [facility] 2016-03-07 Completed Univ ersity of 00:00:00 [facility] Branch Pneumococcal 13 2016-03-07 Completed [facility] y of Conjugate, PCV13 00:00:00 [place] [facility] (Prevnar 13) Branch Meningococcal B, V 2016-03-07 Completed Univ ersity of 00:00:00 [facility] Branch Pneumococcal 13 2016-03-07 Completed [facility] y of Conjugate, PCV13 00:00:00 [place] [facility] (Prevnar 13) Branch Meningococcal B, V 2016-03-07 Completed Univ ersity of 00:00:00 [facility] Branch Pneumococcal 13 2016-03-07 Completed [facility] y of Conjugate, PCV13 00:00:00 [place] [facility] (Prevnar 13) Branch Meningococcal B, [facility] 2016-03-07 Completed Univ ersity of 00:00:[address] [facility] Pneumococcal 13 2016-03-07 Completed [facility] y of Conjugate, PCV13 00:00:00 [place] [facility] (Prevnar 13) Branch Meningococcal B, [facility] 2016-03-07 Completed Univ ersity of 00:00:[address] [facility] Pneumococcal 13 2016-03-07 Completed [facility] y of Conjugate, PCV13 00:00:00 [place] [facility] (Prevnar 13) Branch Meningococcal B, [facility] 2016-03-07 Completed Univ ersity of 00:00:[address] [facility] Pneumococcal 13 2016-03-07 Completed [facility] y of Conjugate, PCV13 00:00:00 [place] [facility] (Prevnar 13) Branch Meningococcal B, [facility] 2016-03-07 Completed Univ ersity of 00:00:[address] [facility] Pneumococcal 13 2016-03-07 Completed [facility] y of Conjugate, PCV13 00:00:00 [place] [facility] (Prevnar 13) Branch Meningococcal B, [facility] 2016-03-07 Completed Univ ersity of 00:00:[address] [facility] Pneumococcal 13 2016-03-07 Completed [facility] y of Conjugate, PCV13 00:00:00 [place] [facility] (Prevnar 13) Branch Meningococcal B, [facility] 2016-03-07 Completed Univ ersity of 00:00:[address] [facility] Pneumococcal 13 2016-03-07 Completed [facility] y of Conjugate, PCV13 00:00:00 [place] [facility] (Prevnar 13) Branch Meningococcal B, [facility] 2016-03-07 Completed Univ ersity of 00:00:00 [facility] Branch Pneumococcal 13 2016-03-07 Completed [facility] y of Conjugate, PCV13 00:00:00 [place] [facility] (Prevnar 13) Branch Meningococcal B, V 2016-03-07 Completed Univ ersity of 00:00:[address] [facility] Pneumococcal 13 2016-03-07 Completed [facility] y of Conjugate, PCV13 00:00:00 [place] [facility] (Prevnar 13) Branch Meningococcal B, V 2016-03-07 Completed Univ ersity of 00:00:[address] [facility] Pneumococcal 13 2016-03-07 Completed [facility] y of Conjugate, PCV13 00:00:00 [place] [facility] (Prevnar 13) Branch Meningococcal B, V 2016-03-07 Completed [facility] ersity of 00:00:[address] [facility] Pneumococcal 13 2016-03-07 Completed [facility] y of Conjugate, PCV13 00:00:00 [place] [facility] (Prevnar 13) Branch Meningococcal B, V 2016-03-07 Completed [facility] ersity of 00:00:[address] [facility] Pneumococcal 13 2016-03-07 Completed [facility] y of Conjugate, PCV13 00:00:00 [place] [facility] (Prevnar 13) Branch Meningococcal B, [facility] 2016-03-07 Completed Univ ersity of 00:00:[address] [facility] Pneumococcal 13 2016-03-07 Completed [facility] y of Conjugate, PCV13 00:00:00 [place] [facility] (Prevnar 13) Branch Meningococcal B, [facility] 2016-03-07 Completed [facility] ersity of 00:00:[address] [facility] Pneumococcal 13 2016-03-07 Completed [facility] y of Conjugate, PCV13 00:00:00 [place] [facility] (Prevnar 13) Branch Meningococcal B, V 2016-03-07 Completed [facility] ersity of 00:00:[address] [facility] Pneumococcal 13 2016-03-07 Completed [facility] y of Conjugate, PCV13 00:00:00 [place] [facility] (Prevnar 13) Branch Meningococcal B, [facility] 2016-03-07 Completed Univ ersity of 00:00:[address] [facility] Pneumococcal 13 2016-03-07 Completed [facility] y of Conjugate, PCV13 00:00:00 [place] [facility] (Prevnar 13) Branch Meningococcal B, [facility] 2016-03-07 Completed Univ ersity of 00:00:00 [facility] Branch Pneumococcal 13 2016-03-07 Completed [facility]it y of Conjugate, PCV13 00:00:00 [place] [facility] (Prevnar 13) Branch Meningococcal B, V 2016-03-07 Completed Univ ersity of 00:00:00 [facility] Branch Pneumococcal 13 2016-03-07 Completed [facility] y of Conjugate, PCV13 00:00:00 [place] [facility] (Prevnar 13) Branch Meningococcal B, V 2016-03-07 Completed Univ ersity of 00:00:[address] [facility] Pneumococcal 13 2016-03-07 Completed [facility]it y of Conjugate, PCV13 00:00:00 [place] [facility] (Prevnar 13) Branch Meningococcal B, [facility] 2016-03-07 Completed Univ ersity of 00:00:[address] [facility] Pneumococcal 13 2016-03-07 Completed [facility]it y of Conjugate, PCV13 00:00:00 [place] [facility] (Prevnar 13) Branch Meningococcal B, [facility] 2016-03-07 Completed Univ ersity of 00:00:[address] [facility] Pneumococcal 13 2016-03-07 Completed Universit y of Conjugate, PCV13 00:00:00 [place] [facility] (Prevnar 13) Branch Meningococcal B, [facility] 2016-03-07 Completed Univ ersity of 00:00:[address] [facility] Pneumococcal 13 2016-03-07 Completed Universit y of Conjugate, PCV13 00:00:00 [place] [facility] (Prevnar 13) Branch Meningococcal B, [facility] 2016-03-07 Completed Univ ersity of 00:00:[address] [facility] Pneumococcal 13 2016-03-07 Completed Universit y of Conjugate, PCV13 00:00:00 [place] [facility] (Prevnar 13) Branch Meningococcal B, [facility] 2016-03-07 Completed Univ ersity of 00:00:[address] [facility] Pneumococcal 13 2016-03-07 Completed Universit y of Conjugate, PCV13 00:00:00 [place] [facility] (Prevnar 13) Branch Meningococcal B, [facility] 2016-03-07 Completed Univ ersity of 00:00:[address] [facility] Pneumococcal 13 2016-03-07 Completed Universit y of Conjugate, PCV13 00:00:00 [place] [facility] (Prevnar 13) Branch Meningococcal B, [facility] 2016-03-07 Completed Univ ersity of 00:00:[address] [facility] Pneumococcal 13 2016-03-07 Completed Universit y of Conjugate, PCV13 00:00:00 [place] [facility] (Prevnar 13) Branch Meningococcal B, V 2016-03-07 Completed [facility] ersity of 00:00:[address] [facility] Pneumococcal 13 2016-03-07 Completed [facility] y of Conjugate, PCV13 00:00:00 [place] [facility] (Prevnar 13) Branch Meningococcal B, V 2016-03-07 Completed [facility] ersity of 00:00:[address] [facility] Pneumococcal 13 2016-03-07 Completed [facility]it y of Conjugate, PCV13 00:00:00 [place] [facility] (Prevnar 13) Branch Meningococcal B, V 2016-03-07 Completed [facility] ersity of 00:00:[address] [facility] Pneumococcal 13 2016-03-07 Completed Universit y of Conjugate, PCV13 00:00:00 [place] [facility] (Prevnar 13) Branch Meningococcal B, [facility] 2016-03-07 Completed Univ ersity of 00:00:[address] [facility] Pneumococcal 13 2016-03-07 Completed [facility] y of Conjugate, PCV13 00:00:00 [place] [facility] (Prevnar 13) Branch Meningococcal B, [facility] 2016-03-07 Completed [facility] ersity of 00:00:[address] [facility] Pneumococcal 13 2016-03-07 Completed [facility]it y of Conjugate, PCV13 00:00:00 [place] [facility] (Prevnar 13) Branch Meningococcal B, [facility] 2016-03-07 Completed [facility] ersity of 00:00:[address] [facility] Pneumococcal 13 2016-03-07 Completed [facility] y of Conjugate, PCV13 00:00:00 [place] [facility] dical (Prevnar 13) Branch Meningococcal B, [facility] 2016-03-07 Completed Univ ersity of 00:00:[address] [facility] Pneumococcal 13 2016-03-07 Completed Universit y of Conjugate, PCV13 00:00:00 [place] [facility] (Prevnar 13) Branch Meningococcal B, [facility] 2016-03-07 Completed Univ ersity of 00:00:[address] [facility] Pneumococcal 13 2016-03-07 Completed Universit y of Conjugate, PCV13 00:00:00 [place] [facility] (Prevnar 13) Branch Meningococcal B, [facility] 2016-03-07 Completed Univ ersity of 00:00:[address] [facility] Pneumococcal 13 2016-03-07 Completed Universit y of Conjugate, PCV13 00:00:00 [place] [facility] (Prevnar 13) Branch Meningococcal B, V 2016-03-07 Completed Univ ersity of 00:00:[address] [facility] Pneumococcal 13 2016-03-07 Completed Universit y of Conjugate, PCV13 00:00:00 [place] [facility] (Prevnar 13) Branch Meningococcal B, V 2016-03-07 Completed Univ ersity of 00:00:[address] [facility] Pneumococcal 13 2016-03-07 Completed Universit y of Conjugate, PCV13 00:00:00 [place] [facility] (Prevnar 13) Branch Meningococcal B, [facility] 2016-03-07 Completed Univ ersity of 00:00:[address] [facility] Pneumococcal 13 2016-03-07 Completed Universit y of Conjugate, PCV13 00:00:00 [place] [facility] (Prevnar 13) Branch Meningococcal B, [facility] 2016-03-07 Completed Univ ersity of 00:00:[address] [facility] Pneumococcal 13 2016-03-07 Completed Universit y of Conjugate, PCV13 00:00:00 [place] [facility] (Prevnar 13) Branch Meningococcal B, [facility] 2016-03-07 Completed Univ ersity of 00:00:[address] [facility] Pneumococcal 13 2016-03-07 Completed Universit y of Conjugate, PCV13 00:00:00 [place] [facility] (Prevnar 13) Branch Meningococcal B, [facility] 2016-03-07 Completed Univ ersity of 00:00:[address] [facility] Pneumococcal 13 2016-03-07 Completed Universit y of Conjugate, PCV13 00:00:00 [facility] dical (Prevnar 13) Branch Meningococcal B, [facility] 2016-03-07 Completed Univ ersity of 00:00:[address] [facility] Pneumococcal 13 2016-03-07 Completed Universit y of Conjugate, PCV13 00:00:00 [place] [facility] (Prevnar 13) Branch Meningococcal B, [facility] 2016-03-07 Completed Univ ersity of 00:00:[address] [facility] Pneumococcal 13 2016-03-07 Completed Universit y of Conjugate, PCV13 00:00:00 [place] [facility] (Prevnar 13) Branch Meningococcal B, [facility] 2016-03-07 Completed Univ ersity of 00:00:[address] [facility] Pneumococcal 13 2016-03-07 Completed Universit y of Conjugate, PCV13 00:00:00 [place] [facility] (Prevnar 13) Branch Meningococcal B, [facility] 2016-03-07 Completed Univ ersity of 00:00:[address] [facility] Pneumococcal 13 2016-03-07 Completed Universit y of Conjugate, PCV13 00:00:00 [place] [facility] (Prevnar 13) Branch Meningococcal B, [facility] 2016-03-07 Completed Univ ersity of 00:00:[address] [facility] Pneumococcal 13 2016-03-07 Completed Universit y of Conjugate, PCV13 00:00:00 [place] [facility] (Prevnar 13) Branch Meningococcal B, [facility] 2016-03-07 Completed Univ ersity of 00:00:[address] [facility] Pneumococcal 13 2016-03-07 Completed Universit y of Conjugate, PCV13 00:00:00 [place] [facility] (Prevnar 13) Branch Meningococcal B, [facility] 2016-03-07 Completed Univ ersity of 00:00:[address] [facility] Pneumococcal 13 2016-03-07 Completed Universit y of Conjugate, PCV13 00:00:00 [place] [facility] (Prevnar 13) Branch Meningococcal B, [facility] 2016-03-07 Completed Univ ersity of 00:00:[address] [facility] Pneumococcal 13 2016-03-07 Completed Universit y of Conjugate, PCV13 00:00:00 [place] [facility] (Prevnar 13) Branch Meningococcal B, [facility] 2016-03-07 Completed Univ ersity of 00:00:[address] [facility] Pneumococcal 13 2016-03-07 Completed Universit y of Conjugate, PCV13 00:00:00 [place] [facility] (Prevnar 13) Branch Meningococcal B, [facility] 2016-03-07 Completed Univ ersity of 00:00:[address] [facility] Pneumococcal 13 2016-03-07 Completed Universit y of Conjugate, PCV13 00:00:00 [place] [facility] (Prevnar 13) Branch Meningococcal B, [facility] 2016-03-07 Completed Univ ersity of 00:00:[address] [facility] Pneumococcal 13 2016-03-07 Completed Universit y of Conjugate, PCV13 00:00:00 [place] [facility] (Prevnar 13) Branch Meningococcal B, [facility] 2016-03-07 Completed Univ ersity of 00:00:[address] [facility] Pneumococcal 13 2016-03-07 Completed Universit y of Conjugate, PCV13 00:00:00 [place] [facility] (Prevnar 13) Branch Meningococcal B, V 2016-03-07 Completed Univ ersity of 00:00:[address] [facility] Pneumococcal 13 2016-03-07 Completed Universit y of Conjugate, PCV13 00:00:00 [place] [facility] (Prevnar 13) Branch Meningococcal B, [facility] 2016-03-07 Completed Univ ersity of 00:00:[address] [facility] Pneumococcal 13 2016-03-07 Completed Universit y of Conjugate, PCV13 00:00:00 [place] [facility] (Prevnar 13) Branch Meningococcal B, [facility] 2016-03-07 Completed Univ ersity of 00:00:[address] [facility] Pneumococcal 13 2016-03-07 Completed Universit y of Conjugate, PCV13 00:00:00 [place] [facility] (Prevnar 13) Branch Meningococcal B, [facility] 2016-03-07 Completed Univ ersity of 00:00:[address] [facility] Pneumococcal 13 2016-03-07 Completed Universit y of Conjugate, PCV13 00:00:00 [place] [facility] (Prevnar 13) Branch Meningococcal B, [facility] 2016-03-07 Completed Univ ersity of 00:00:[address] [facility] Pneumococcal 13 2016-03-07 Completed Universit y of Conjugate, PCV13 00:00:00 [place] [facility] (Prevnar 13) Branch Meningococcal B, [facility] 2016-03-07 Completed Univ ersity of 00:00:[address] [facility] Pneumococcal 13 2016-03-07 Completed Universit y of Conjugate, PCV13 00:00:00 [place] [facility] (Prevnar 13) Branch Meningococcal B, [facility] 2016-03-07 Completed Univ ersity of 00:00:[address] [facility] Pneumococcal 13 2016-03-07 Completed Universit y of Conjugate, PCV13 00:00:00 [place] [facility] (Prevnar 13) Branch Meningococcal B, [facility] 2016-03-07 Completed Univ ersity of 00:00:[address] [facility] Pneumococcal 13 2016-03-07 Completed Universit y of Conjugate, PCV13 00:00:00 [place] [facility] (Prevnar 13) Branch Meningococcal B, [facility] 2016-03-07 Completed Univ ersity of 00:00:[address] [facility] Pneumococcal 13 2016-03-07 Completed Universit y of Conjugate, PCV13 00:00:00 [place] [facility] (Prevnar 13) Branch Meningococcal B, [facility] 2016-03-07 Completed Univ ersity of 00:00:00 [facility] Pneumococcal 13 2016-03-07 Completed Universit y of Conjugate, PCV13 00:00:00 [place] [facility] (Prevnar 13) Branch Meningococcal B, [facility] 2016-03-07 Completed Univ ersity of 00:00:[address] [facility] Pneumococcal 13 2016-03-07 Completed Universit y of Conjugate, PCV13 00:00:00 [place] [facility] (Prevnar 13) Branch Meningococcal B, [facility] 2016-03-07 Completed Univ ersity of 00:00:[address] [facility] Pneumococcal 13 2016-03-07 Completed Universit y of Conjugate, PCV13 00:00:00 [place] [facility] (Prevnar 13) Branch Meningococcal B, [facility] 2016-03-07 Completed Univ ersity of 00:00:[address] [facility] Pneumococcal 13 2016-03-07 Completed Universit y of Conjugate, PCV13 00:00:00 [place] [facility] (Prevnar 13) Branch Meningococcal B, [facility] 2016-03-07 Completed Univ ersity of 00:00:[address] [facility] Pneumococcal 13 2016-03-07 Completed Universit y of Conjugate, PCV13 00:00:00 [place] [facility] (Prevnar 13) Branch Meningococcal B, [facility] 2016-03-07 Completed Univ ersity of 00:00:[address] [facility] Pneumococcal 13 2016-03-07 Completed Universit y of Conjugate, PCV13 00:00:00 [place] [facility] (Prevnar 13) Branch Meningococcal B, [facility] 2016-03-07 Completed Univ ersity of 00:00:[address] [facility] Pneumococcal 13 2016-03-07 Completed Universit y of Conjugate, PCV13 00:00:00 [place] [facility] (Prevnar 13) Branch Meningococcal B, [facility] 2016-03-07 Completed Univ ersity of 00:00:[address] [facility] Pneumococcal 13 2016-03-07 Completed Universit y of Conjugate, PCV13 00:00:00 [place] [facility] (Prevnar 13) Branch Meningococcal B, [facility] 2016-03-07 Completed Univ ersity of 00:00:[address] [facility] Pneumococcal 13 2016-03-07 Completed Universit y of Conjugate, PCV13 00:00:00 [place] [facility] (Prevnar 13) Branch Meningococcal B, [facility] 2016-03-07 Completed Univ ersity of 00:00:00 [facility] Branch Pneumococcal 13 2016-03-07 Completed Universit y of Conjugate, PCV13 00:00:00 [place] [facility] (Prevnar 13) Branch Meningococcal B, [facility] 2016-03-07 Completed Univ ersity of 00:00:[address] [facility] Pneumococcal 13 2016-03-07 Completed Universit y of Conjugate, PCV13 00:00:00 [place] [facility] (Prevnar 13) Branch Meningococcal B, [facility] 2016-03-07 Completed Univ ersity of 00:00:[address] [facility] Pneumococcal 13 2016-03-07 Completed Universit y of Conjugate, PCV13 00:00:00 [place] [facility] (Prevnar 13) Branch Meningococcal B, [facility] 2016-03-07 Completed Univ ersity of 00:00:[address] [facility] Pneumococcal 13 2016-03-07 Completed Universit y of Conjugate, PCV13 00:00:00 [place] [facility] (Prevnar 13) Branch Meningococcal B, [facility] 2016-03-07 Completed Univ ersity of 00:00:[address] [facility] Pneumococcal 13 2016-03-07 Completed Universit y of Conjugate, PCV13 00:00:00 [place] [facility] (Prevnar 13) Branch Meningococcal B, [facility] 2016-03-07 Completed Univ ersity of 00:00:[address] [facility] Pneumococcal 13 2016-03-07 Completed Universit y of Conjugate, PCV13 00:00:00 [place] [facility] (Prevnar 13) Branch Meningococcal B, [facility] 2016-03-07 Completed Univ ersity of 00:00:[address] [facility] Pneumococcal 13 2016-03-07 Completed Universit y of Conjugate, PCV13 00:00:00 [place] [facility] (Prevnar 13) Branch Meningococcal B, [facility] 2016-03-07 Completed Univ ersity of 00:00:[address] [facility] Pneumococcal 13 2016-03-07 Completed Universit y of Conjugate, PCV13 00:00:00 [place] [facility] (Prevnar 13) Branch Meningococcal B, [facility] 2016-03-07 Completed Univ ersity of 00:00:[address] [facility] Pneumococcal 13 2016-03-07 Completed Universit y of Conjugate, PCV13 00:00:00 [place] [facility] (Prevnar 13) Branch Meningococcal B, V 2016-03-07 Completed Univ ersity of 00:00:00 [facility] Branch Pneumococcal 13 2016-03-07 Completed Universit y of Conjugate, PCV13 00:00:00 [place] [facility] (Prevnar 13) Branch Meningococcal B, V 2016-03-07 Completed Univ ersity of 00:00:00 [facility] Branch Pneumococcal 13 2016-03-07 Completed Universit y of Conjugate, PCV13 00:00:00 [place] [facility] (Prevnar 13) Branch Meningococcal B, V 2016-03-07 Completed Univ ersity of 00:00:00 [facility] Pneumococcal 13 2016-03-07 Completed Universit y of Conjugate, PCV13 00:00:00 [place] [facility] (Prevnar 13) Branch Meningococcal B, V 2016-03-07 Completed Univ ersity of 00:00:[address] [facility] Pneumococcal 13 2016-03-07 Completed Universit y of Conjugate, PCV13 00:00:00 [place] [facility] (Prevnar 13) Branch Meningococcal B, V 2016-03-07 Completed Univ ersity of 00:00:[address] [facility] Pneumococcal 13 2016-03-07 Completed Universit y of Conjugate, PCV13 00:00:00 [place] [facility] (Prevnar 13) Branch Meningococcal B, [facility] 2016-03-07 Completed Univ ersity of 00:00:[address] [facility] Pneumococcal 13 2016-03-07 Completed Universit y of Conjugate, PCV13 00:00:00 [place] [facility] (Prevnar 13) Branch Meningococcal B, V 2016-03-07 Completed Univ ersity of 00:00:[address] [facility] Pneumococcal 13 2016-03-07 Completed Universit y of Conjugate, PCV13 00:00:00 [place] [facility] (Prevnar 13) Branch Meningococcal B, V 2016-03-07 Completed Univ ersity of 00:00:[address] [facility] Pneumococcal 13 2016-03-07 Completed Universit y of Conjugate, PCV13 00:00:00 [place] [facility] (Prevnar 13) Branch Meningococcal B, V 2016-03-07 Completed Univ ersity of 00:00:[address] [facility] Pneumococcal 13 2016-03-07 Completed Universit y of Conjugate, PCV13 00:00:00 [place] [facility] (Prevnar 13) Branch Meningococcal B, V 2016-03-07 Completed Univ ersity of 00:00:00 [facility] Branch Pneumococcal 13 2016-03-07 Completed Universit y of Conjugate, PCV13 00:00:00 [place] [facility] (Prevnar 13) Branch Meningococcal B, V 2016-03-07 Completed Univ ersity of 00:00:00 [facility] Branch Pneumococcal 13 2016-03-07 Completed Universit y of Conjugate, PCV13 00:00:00 [place] [facility] (Prevnar 13) Branch Meningococcal B, V 2016-03-07 Completed Univ ersity of 00:00:00 [facility] Branch Pneumococcal 13 2016-03-07 Completed Universit y of Conjugate, PCV13 00:00:00 [place] [facility] (Prevnar 13) Branch Meningococcal B, V 2016-03-07 Completed Univ ersity of 00:00:00 [facility] Pneumococcal 13 2016-03-07 Completed Universit y of Conjugate, PCV13 00:00:00 [place] [facility] (Prevnar 13) Branch Meningococcal B, V 2016-03-07 Completed [facility] ersity of 00:00:[address] [facility] Pneumococcal 13 2016-03-07 Completed Universit y of Conjugate, PCV13 00:00:00 [place] [facility] (Prevnar 13) Branch Meningococcal B, [facility] 2016-03-07 Completed Univ ersity of 00:00:[address] [facility] Pneumococcal 13 2016-03-07 Completed Universit y of Conjugate, PCV13 00:00:00 [place] [facility] (Prevnar 13) Branch Meningococcal B, V 2016-03-07 Completed [facility] ersity of 00:00:[address] [facility] Pneumococcal 13 2016-03-07 Completed Universit y of Conjugate, PCV13 00:00:00 [place] [facility] (Prevnar 13) Branch Meningococcal B, V 2016-03-07 Completed Univ ersity of 00:00:[address] [facility] Pneumococcal 13 2016-03-07 Completed Universit y of Conjugate, PCV13 00:00:00 [place] [facility] (Prevnar 13) Branch Meningococcal B, V 2016-03-07 Completed [facility] ersity of 00:00:[address] [facility] Pneumococcal 13 2016-03-07 Completed Universit y of Conjugate, PCV13 00:00:00 [place] [facility] (Prevnar 13) Branch Meningococcal B, [facility] 2016-03-07 Completed Univ ersity of 00:00:[address] [facility] Pneumococcal 13 2016-03-07 Completed Universit y of Conjugate, PCV13 00:00:00 [place] [facility] (Prevnar 13) Branch Meningococcal B, V 2016-03-07 Completed [facility] ersity of 00:00:[address] [facility] Pneumococcal 13 2016-03-07 Completed Universit y of Conjugate, PCV13 00:00:00 [place] [facility] (Prevnar 13) Branch Meningococcal B, V 2016-03-07 Completed [facility] ersity of 00:00:[address] [facility] Pneumococcal 13 2016-03-07 Completed Universit y of Conjugate, PCV13 00:00:00 [place] [facility] (Prevnar 13) Branch Meningococcal B, V 2016-03-07 Completed [facility] ersity of 00:00:[address] [facility] Pneumococcal 13 2016-03-07 Completed Universit y of Conjugate, PCV13 00:00:00 [place] [facility] (Prevnar 13) Branch Meningococcal B, V 2016-03-07 Completed [facility] ersity of 00:00:[address] [facility] Pneumococcal 13 2016-03-07 Completed Universit y of Conjugate, PCV13 00:00:00 [place] [facility] (Prevnar 13) Branch Meningococcal B, V 2016-03-07 Completed [facility] ersity of 00:00:[address] [facility] Pneumococcal 13 2016-03-07 Completed Universit y of Conjugate, PCV13 00:00:00 [facility] [place] [facility] dical (Prevnar 13) Branch Meningococcal B, [facility] 2016-03-07 Completed [facility] Influ[facility] Influ[facility] B [facility] Com[facility] Influenza B 00:[facility]:00 [facility] 2015-11-13 Completed [facility] Influenza B 00:00:00 [facility] 2015-11-13 Completed [facility] of Influenza B 00:00:00 [facility] 2015-11-13 Completed University of Influenza B 00:00:00 [facility] 2015-11-13 Completed [facility] of Influenza B 00:00:00 [facility] 2015-11-13 Completed [facility] of Influenza B 00:00:00 [facility] 2015-11-13 Completed [facility] of Influenza B 00:00:00 [facility] 2015-11-13 Completed University of Influenza B 00:00:00 [facility] 2015-11-13 Completed University of Influenza B 00:00:00 [facility] 2015-11-13 Completed [facility] of Influenza B 00:00:00 [facility] 2015-11-13 Completed [facility] of Influenza B 00:00:00 [facility] 2015-11-13 Completed University of Influenza B 00:00:00 [facility] 2015-11-13 Completed University of Influenza B 00:00:00 [facility] 2015-11-13 Completed University of Influenza B 00:00:00 [facility] 2015-11-13 Completed University of Influenza B 00:00:00 [facility] 2015-11-13 Completed University of Influenza B 00:00:00 [facility] 2015-11-13 Completed University of Influenza B 00:00:00 [facility] 2015-11-13 Completed University of Influenza B 00:00:00 [facility] 2015-11-13 Completed University of Influenza B 00:00:00 [facility] 2015-11-13 Completed [facility] of Influenza B 00:00:00 [facility] 2015-11-13 Completed University of Influenza B 00:00:00 [facility] 2015-11-13 Completed [facility] of Influenza B 00:00:00 [facility] 2015-11-13 Completed University of Influenza B 00:00:00 [facility] 2015-11-13 Completed [facility] of Influenza B 00:00:00 [facility] 2015-11-13 Completed [facility] of Influenza B 00:00:00 [facility] 2015-11-13 Completed [facility] of Influenza B 00:00:00 [facility] 2015-11-13 Completed [facility] of Influenza B 00:00:00 [facility] 2015-11-13 Completed [facility] of Influenza B 00:00:00 [facility] 2015-11-13 Completed [facility] of Influenza B 00:00:00 [facility] 2015-11-13 Completed [facility] of Influenza B 00:00:00 [facility] 2015-11-13 Completed [facility] of Influenza B 00:00:00 [facility] 2015-11-13 Completed [facility] of Influenza B 00:00:00 [facility] 2015-11-13 Completed [facility] of Influenza B 00:00:00 [facility] 2015-11-13 Completed [facility] of Influenza B 00:00:00 [facility] 2015-11-13 Completed [facility] of Influenza B 00:00:00 [facility] 2015-11-13 Completed [facility] of Influenza B 00:00:00 [facility] 2015-11-13 Completed [facility] of Influenza B 00:00:00 [facility] 2015-11-13 Completed [facility] of Influenza B 00:00:00 [facility] 2015-11-13 Completed [facility] of Influenza B 00:00:00 [facility] 2015-11-13 Completed [facility] of Influenza B 00:00:00 [facility] 2015-11-13 Completed [facility] of Influenza B 00:00:00 [facility] 2015-11-13 Completed [facility] of Influenza B 00:00:00 [facility] 2015-11-13 Completed [facility] of Influenza B 00:00:00 [facility] 2015-11-13 Completed [facility] of Influenza B 00:00:00 [facility] 2015-11-13 Completed [facility] of Influenza B 00:00:00 [facility] 2015-11-13 Completed [facility] of Influenza B 00:00:00 [facility] 2015-11-13 Completed [facility] of Influenza B 00:00:00 [facility] 2015-11-13 Completed [facility] of Influenza B 00:00:00 [facility] 2015-11-13 Completed [facility] of Influenza B 00:00:00 [facility] 2015-11-13 Completed [facility] of Influenza B 00:00:00 [facility] 2015-11-13 Completed [facility] of Influenza B 00:00:00 [facility] 2015-11-13 Completed [facility] of Influenza B 00:00:00 [facility] 2015-11-13 Completed [facility] of Influenza B 00:00:00 [facility] 2015-11-13 Completed [facility] Influenza B 00:00:00 [facility] 2015-[facility]-13 Completed [facility] of Influenza B 00:00:00 [facility] 2015-11-13 Completed [facility] of Influenza B 00:00:00 [facility] 2015-11-13 Completed [facility] of Influenza B 00:00:00 [facility] 2015-11-13 Completed [facility] of Influenza B 00:00:00 [facility] 2015-11-13 Completed [facility] of Influenza B 00:00:00 [facility] 2015-11-13 Completed [facility] of Influenza B 00:00:00 [facility] 2015-11-13 Completed [facility] of Influenza B 00:00:00 [facility] 2015-11-13 Completed [facility] of Influenza B 00:00:00 [facility] 2015-11-13 Completed [facility] of Influenza B 00:00:00 [facility] 2015-11-13 Completed [facility] of Influenza B 00:00:00 [facility] 2015-11-13 Completed [facility] of Influenza B 00:00:00 [facility] 2015-11-13 Completed [facility] of Influenza B 00:00:00 [facility] 2015-11-13 Completed [facility] of Influenza B 00:00:00 [facility] 2015-11-13 Completed [facility] of Influenza B 00:00:00 [facility] 2015-11-13 Completed [facility] of Influenza B 00:00:00 [facility] 2015-11-13 Completed [facility] of Influenza B 00:00:00 [facility] 2015-11-13 Completed [facility] of Influenza B 00:00:00 [facility] 2015-11-13 Completed University of Influenza B 00:00:00 [facility] 2015-11-13 Completed University of Influenza B 00:00:00 [facility] 2015-11-13 Completed University of Influenza B 00:00:00 [facility] 2015-11-13 Completed [facility] of Influenza B 00:00:00 [facility] 2015-11-13 Completed University of Influenza B 00:00:00 [facility] 2015-11-13 Completed University of Influenza B 00:00:00 [facility] 2015-11-13 Completed University of Influenza B 00:00:00 [facility] 2015-11-13 Completed University of Influenza B 00:00:00 [facility] 2015-11-13 Completed University of Influenza B 00:00:00 [facility] 2015-11-13 Completed University of Influenza B 00:00:00 [facility] 2015-11-13 Completed University of Influenza B 00:00:00 [facility] 2015-11-13 Completed [facility] of Influenza B 00:00:00 [facility] 2015-11-13 Completed [facility] of Influenza B 00:00:00 [facility] 2015-11-13 Completed [facility] of Influenza B 00:00:00 [facility] 2015-11-13 Completed [facility] of Influenza B 00:00:00 [facility] 2015-11-13 Completed [facility] of Influenza B 00:00:00 [facility] 2015-11-13 Completed [facility] of Influenza B 00:00:00 [facility] 2015-11-13 Completed [facility] of Influenza B 00:00:00 [facility] 2015-11-13 Completed [facility] of Influenza B 00:00:00 [facility] 2015-11-13 Completed [facility] of Influenza B 00:00:00 [facility] 2015-11-13 Completed [facility] of Influenza B 00:00:00 [facility] 2015-11-13 Completed [facility] of Influenza B 00:00:00 [facility] 2015-11-13 Completed [facility] of Influenza B 00:00:00 [facility] 2015-11-13 Completed [facility] of Influenza B 00:00:00 [facility] 2015-11-13 Completed [facility] of Influenza B 00:00:00 [facility] 2015-11-13 Completed [facility] of Influenza B 00:00:00 [facility] 2015-11-13 Completed [facility] of Influenza B 00:00:00 [facility] 2015-11-13 Completed [facility] of Influenza B 00:00:00 [facility] 2015-11-13 Completed [facility] of Influenza B 00:00:00 [facility] 2015-11-13 Completed [facility] of Influenza B 00:00:00 [facility] 2015-11-13 Completed [facility] Influenza B [facility]00 [facility] 2015-[facility] Com[facility] Influenza B 00:00:00 [facility] 2015-11-13 Completed [facility] of Influenza B 00:00:00 [facility] 2015-11-13 Completed [facility] of Influenza B 00:00:00 [facility] 2015-11-13 Completed [facility] Influenza B 00:00:00 [facility] 2015-11-13 Completed [facility] of Influenza B 00:00:00 [facility] 2015-11-13 Completed [facility] of Influenza B 00:00:00 [facility] 2015-11-13 Completed [facility] of Influenza B 00:00:00 [facility] 2015-11-13 Completed [facility] of Influenza B 00:00:00 [facility] 2015-11-13 Completed [facility] of Influenza B 00:00:00 [facility] 2015-11-13 Completed [facility] of Influenza B 00:00:00 [facility] 2015-11-13 Completed [facility] of Influenza B 00:00:00 [facility] 2015-11-13 Completed [facility] of Influenza B 00:00:00 [facility] 2015-11-13 Completed [facility] of Influenza B 00:00:00 [facility] 2015-11-13 Completed [facility] of Influenza B 00:00:00 [facility] 2015-11-13 Completed [facility] of Influenza B 00:00:00 [facility] 2015-11-13 Completed [facility] of Influenza B 00:00:00 [facility] 2015-11-13 Completed [facility] of Influenza B 00:00:00 [facility] 2015-11-13 Completed [facility] of Influenza B 00:00:00 [facility] 2015-11-13 Completed University of Influenza B 00:00:00 [facility] 2015-11-13 Completed [facility] of Influenza B 00:00:00 [facility] 2015-11-13 Completed [facility] of Influenza B 00:00:00 [facility] 2015-11-13 Completed [facility] of Influenza B 00:00:00 [facility] 2015-11-13 Completed [facility] Influenza B 00:00:00 [facility] 2015-[facility] Influenza B 00:00:[address] [facility] Meningococcal 2015-11-12 Completed University of Polysaccharide [...] Completed [facility] Polysaccharide 00:00:00 [place] [facility] (groups A, C, Y and Branc h [...] (MCV4P) TDAP 2015-10-31 Completed University of 00:00:[address] [facility] TDAP 2015-10-31 Completed University of 00:00:[address] [facility] TDAP 2015-10-31 Completed [facility] of 00:00:00 [place] [...] Branch TDAP 2015-10-31 Completed University of 00:00:[address] [facility] TDAP 2015-10-31 Completed University of 00:00:00 [facility] TDAP 2015-10-31 Completed University of 00:00:00 [facility] TDAP 2015-10-31 Completed University of 00:00:00 [facility] TDAP 2015-10-31 Completed University of 00:00:00 [facility] TDAP 2015-10-31 Completed University of 00:00:00 [facility] TDAP 2015-10-31 Completed University of 00:00:00 [facility] TDAP 2015-10-31 Completed University of 00:00:[address] [facility] TDAP 2015-10-31 Completed University of 00:00:00 [facility] TDAP 2015-10-31 Completed University of 00:00:00 [facility] TDAP 2015-10-31 Completed University of 00:00:00 [facility] TDAP 2015-10-31 Completed [facility] 00:00:00 [facility] TDAP 2015-10-31 Completed [facility] 00:00:00 [facility] TDAP 2015-10-31 Completed [facility] 00:00:00 [facility] TDAP 2015-10-31 Completed University of 00:00:00 [facility] TDAP 2015-10-31 Completed University of 00:00:00 [facility] TDAP 2015-10-31 Completed [facility] of 00:00:00 [facility] TDAP 2015-10-31 Completed University of 00:00:00 [facility] TDAP 2015-10-31 Completed [facility] of 00:00:00 [facility] TDAP 2015-10-31 Completed [facility] 00:00:00 [facility] TDAP 2015-10-31 Completed [facility] of 00:00:00 [facility] TDAP 2015-10-31 Completed University of 00:00:00 [facility] TDAP 2015-10-31 Completed University of 00:00:00 [facility] TDAP 2015-10-31 Completed University of 00:00:00 [facility] TDAP 2015-10-31 Completed University of 00:00:00 [facility] TDAP 2015-10-31 Completed University of 00:00:00 [facility] TDAP 2015-10-31 Completed University of 00:00:00 [facility] TDAP 2015-10-31 Completed [facility] of 00:00:00 [facility] TDAP 2015-10-31 Completed University of 00:00:00 [facility] TDAP 2015-10-31 Completed University of 00:00:00 [facility] TDAP 2015-10-31 Completed University of 00:00:00 [facility] TDAP 2015-10-31 Completed University of 00:00:00 [facility] TDAP 2015-10-31 Completed University of 00:00:00 [facility] TDAP 2015-10-31 Completed University of 00:00:00 [facility] TDAP 2015-10-31 Completed [facility] of 00:00:00 [facility] TDAP 2015-10-31 Completed University of 00:00:00 [facility] TDAP 2015-10-31 Completed University of 00:00:00 [facility] TDAP 2015-10-31 Completed University of 00:00:00 [facility] TDAP 2015-10-31 Completed [facility] of 00:00:00 [facility] TDAP 2015-10-31 Completed [facility] of 00:00:00 [facility] TDAP 2015-10-31 Completed University of 00:00:00 [facility] TDAP 2015-10-31 Completed University of 00:00:00 [facility] TDAP 2015-10-31 Completed University of 00:00:00 [facility] TDAP 2015-10-31 Completed University of 00:00:00 [facility] TDAP 2015-10-31 Completed University of 00:00:00 [facility] TDAP 2015-10-31 Completed University of 00:00:00 [facility] TDAP 2015-10-31 Completed University of 00:00:00 [facility] TDAP 2015-10-31 Completed [facility] of 00:00:00 [facility] TDAP 2015-10-31 Completed [facility] of 00:00:00 [facility] TDAP 2015-10-31 Completed University of 00:00:00 [facility] TDAP 2015-10-31 Completed University of 00:00:00 [facility] TDAP 2015-10-31 Completed University of 00:00:00 [...] Branch TDAP 2015-10-31 Completed University of 00:00:[address] [facility] TDAP 2015-10-31 Completed University of 00:00:[address] [facility] TDAP 2015-10-31 Completed University of 00:00:[address] [facility] TDAP 2015-10-31 Completed University of 00:00:[address] [facility] TDAP 2015-10-31 Completed University of 00:00:[address] [facility] TDAP 2015-10-31 Completed University of 00:00:[address] [facility] TDAP 2015-10-31 Completed University of 00:00:[address] [facility] TDAP 2015-10-31 Completed University of 00:00:[address] [facility] TDAP 2015-10-31 Completed University of 00:00:[address] [facility] TDAP 2015-10-31 Completed University of 00:00:[address] [facility] TDAP 2015-10-31 Completed University of 00:00:[address] [facility] TDAP 2015-10-31 Completed University of 00:00:[address] [facility] TDAP 2015-10-31 Completed University of 00:00:[address] [facility] TDAP 2015-10-31 Completed University of 00:00:[address] [facility] TDAP 2015-10-31 Completed University of 00:00:[address] [facility] TDAP 2015-10-31 Completed University of 00:00:[address] [facility] TDAP 2015-10-31 Completed University of 00:00:[address] [facility] TDAP 2015-10-31 Completed University of 00:00:[address] [facility] TDAP 2015-10-31 Completed University of 00:00:[address] [facility] TDAP 2015-10-31 Completed University of 00:00:[address] [facility] TDAP 2015-10-31 Completed University of 00:00:[address] [facility] Pneumococcal 2014-04-01 Completed University o f Polysaccharide, 00:00:00 [place] [facility] PPSV23 (PNEUMOVAX) Branch Pneumococcal 2014-04-01 [...] [place] [facility] PPSV23 (PNEUMOVAX) Branch Pneumococcal Unknown Completed University o f Polysaccharide, [facility] ical PPSV23 (PNEUMOVAX) Branch TDAP Unknown Completed [facility] Meningococcal Unknown Completed University of Polysaccharide [facility] (groups A, C, Y and Branc h W-135) conjugate vaccine (MCV4P) [facility] Unknown Completed University of Influenza B [facility] Pneumococcal 13 Unknown Completed Universit y of Conjugate, PCV13 [facility] dical (Prevnar 13) Branch Meningococcal B, OMV Unknown Completed [facility] Influenza Virus Unknown Completed Universit y of Vaccine Quad IM [facility] ical Multi-dose 6+ MO Branch Influenza Virus Unknown Completed Universit y of Vaccine Quad ID [place] [facility] 18-64 YRS Branch Influenza Virus Unknown Completed Universit y of Vaccine Quad IM 3+ [place] [facility] Influenza Virus Unknown Completed Universit y of Vaccine [facility] Pneumococcal Unknown Completed University o f Polysaccharide, [facility] ica PPSV23 (PNEUMOVAX) Branch Influenza Virus Unknown Completed Universit y of Vaccine Recomb Quad [facility] IM, Preserv and ABX Branc h Free 18-64 YRS TDAP (ADACEL) Unknown Completed University of VACCINE [facility] TDAP Unknown Completed [facility] Influenza Virus Unknown Completed Universit y of Vaccine Recomb Quad [facility] IM, Preserv and ABX Branc h Free 18-64 YRS SARS-COV-2 COVID-19 Unknown Completed Unive rsity of PFIZER VACCINE [facility] Branch SARS-COV-2 COVID-19 Unknown Completed Unive rsity of PFIZER VACCINE [facility] Branch Influenza Virus Unknown Completed Universit y of Vaccine (3+ yrs) [facility] dical Branch SARS-COV-2 COVID-19 Unknown Completed Unive rsity of PFIZER VACCINE [facility] Branch Twinrix (hep a/hep Unknown Completed Univer sity of b) [facility] Twinrix (hep a/hep Unknown Completed Univer sity of b) [facility] SARS-COV-2 COVID-19 Unknown Completed Unive rsity of CHRISTELLE-SUCROSE VACCINE [facility] 12 YRS+, BIVALENT Branch 0.3ML, IM, (PFIZER FOUNTAIN TOP) Pneumococcal Unknown Completed University o f Polysaccharide, [facility] ical PPSV23 (PNEUMOVAX) Branch Influenza Virus Unknown Completed Universit y of Vaccine Quad .5 mL [facility] 6+ MO Branch (FLUZONE/FLULAVAL/FL UARIX) Pneumococcal Unknown Completed University o f Polysaccharide, [facility] ical PPSV23 (PNEUMOVAX) Branch TDAP Unknown Completed [facility] Meningococcal Unknown Completed University of Polysaccharide [facility] (groups A, C, Y and Branc h W-135) conjugate vaccine (MCV4P) [facility] Unknown Completed University of Influenza B [facility] Pneumococcal 13 Unknown Completed Universit y of Conjugate, PCV13 [facility] (Prevnar 13) Branch Meningococcal B, OMV Unknown [facility] Completed Universit y of Vaccine Quad IM [facility] ical Multi-dose 6+ MO Branch Influenza Virus Unknown Completed Universit y of Vaccine Quad ID [facility] ical 18-64 YRS Branch Influenza Virus Unknown Completed Universit y of Vaccine Quad IM 3+ [place] [facility] Branch Influenza Virus Unknown Completed Universit y of Vaccine [facility] Pneumococcal Unknown Completed University o f Polysaccharide, [facility] ical PPSV23 (PNEUMOVAX) Branch Influenza Virus Unknown Completed Universit y of Vaccine Recomb Quad [facility] IM, Preserv and ABX Branc h Free 18-64 YRS TDAP (ADACEL) Unknown Completed University of VACCINE [facility] TDAP Unknown Completed [facility] Influenza Virus Unknown Completed Universit y of Vaccine Recomb Quad [facility] IM, Preserv and ABX Branc h Free 18-64 YRS SARS-COV-2 COVID-19 Unknown Completed Unive rsity of PFIZER VACCINE [facility] Branch SARS-COV-2 COVID-19 Unknown Completed Unive rsity of PFIZER VACCINE [facility] Branch Influenza Virus Unknown Completed Universit y of Vaccine (3+ yrs) [facility] dical Branch SARS-COV-2 COVID-19 Unknown Completed Unive rsity of PFIZER VACCINE [facility] Branch Twinrix (hep a/hep Unknown Completed Univer sity of b) [facility] Twinrix (hep a/hep Unknown Completed Univer sity of b) [facility] SARS-COV-2 COVID-19 Unknown Completed Unive rsity of CHRISTELLE-SUCROSE VACCINE [facility] 12 YRS+, BIVALENT Branch 0.3ML, IM, (PFIZER FOUNTAIN TOP) Pneumococcal Unknown Completed University o f Polysaccharide, [facility] ical PPSV23 (PNEUMOVAX) Branch Influenza Virus Unknown Completed Universit y of Vaccine Quad .5 mL [facility] 6+ MO Branch (FLUZONE/FLULAVAL/FL UARIX) Pneumococcal Unknown Completed University o f Polysaccharide, [facility] ical PPSV23 (PNEUMOVAX) Branch TDAP Unknown Completed [facility] Meningococcal Unknown Completed University of Polysaccharide [facility] (groups A, C, Y and Branc h W-135) conjugate vaccine (MCV4P) [facility] Unknown Completed University of Influenza B [facility] Pneumococcal 13 Unknown Completed Universit y of Conjugate, PCV13 [facility] dical (Prevnar 13) Branch Meningococcal B, OMV Unknown Completed Univ ersity [facility] Influenza Virus Unknown Completed Universit y of Vaccine Quad IM [place] [facility] Multi-dose 6+ MO Branch Influenza Virus Unknown Completed Universit y of Vaccine Quad ID [facility] ical 18-64 YRS Branch Influenza Virus Unknown Completed Universit y of Vaccine Quad IM 3+ [place] [facility] Y[facility] Branch Influenza Virus Unknown Completed Universit y of Vaccine [facility] Branch Pneumococcal Unknown Completed University o f Polysaccharide, [facility] ical PPSV23 (PNEUMOVAX) Branch Influenza Virus Unknown Completed Universit y of Vaccine Recomb Quad [facility] IM, Preserv and ABX Branc h Free 18-64 YRS TDAP (ADACEL) Unknown Completed University of VACCINE [facility] TDAP Unknown Completed [facility] Influenza Virus Unknown Completed Universit y of Vaccine Recomb Quad [facility] IM, Preserv and ABX Branc h Free 18-64 YRS SARS-COV-2 COVID-19 Unknown Completed Unive rsity of PFIZER VACCINE [facility] Branch SARS-COV-2 COVID-19 Unknown Completed Unive rsity of PFIZER VACCINE [facility] Branch Influenza Virus Unknown Completed Universit y of Vaccine (3+ yrs) [facility] dical Branch SARS-COV-2 COVID-19 Unknown Completed Unive rsity of PFIZER VACCINE [facility] Branch Twinrix (hep a/hep Unknown Completed Univer sity of b) [facility] Twinrix (hep a/hep Unknown Completed Univer sity of b) [facility] SARS-COV-2 COVID-19 Unknown Completed Unive rsity of CHRISTELLE-SUCROSE VACCINE [facility] 12 YRS+, BIVALENT Branch 0.3ML, IM, (PFIZER FOUNTAIN TOP) Pneumococcal Unknown Completed [facility] Branch Influenza Virus Unknown Completed Universit y of Vaccine Quad .5 mL [facility] 6+ MO Branch (FLUZONE/FLULAVAL/FL UARIX) Pneumococcal Unknown Completed University o f Polysaccharide, [facility] ical PPSV23 (PNEUMOVAX) Branch TDAP Unknown Completed [facility] Meningococcal Unknown Completed University of Polysaccharide [facility] (groups A, C, Y and Branc h W-135) conjugate vaccine (MCV4P) [facility]amophilus Unknown Completed University of Influenza B [facility] Pneumococcal 13 Unknown Completed Universit y of Conjugate, PCV13 [facility] dicwy (Prevnar 13) Branch Meningococcal B, OMV Unknown Completed Univ ersity [facility] Influenza Virus Unknown Completed Universit y of Vaccine Quad IM [facility] ical Multi-dose 6+ MO Branch Influenza Virus Unknown Completed Universit y of Vaccine Quad ID [facility] ical 18-64 YRS Branch Influenza Virus Unknown Completed Universit y of Vaccine Quad IM 3+ [place] [facility] Branch Influenza Virus Unknown Completed Universit y of Vaccine [facility] Pneumococcal Unknown Completed University o f Polysaccharide, [facility] ical PPSV23 (PNEUMOVAX) Branch Influenza Virus Unknown Completed Universit y of Vaccine Recomb Quad [facility] IM, Preserv and ABX Branc h Free 18-64 YRS TDAP (ADACEL) Unknown Completed University of VACCINE [facility] TDAP Unknown Completed [facility] Influenza Virus Unknown Completed Universit y of Vaccine Recomb Quad [facility] IM, Preserv and ABX Branc h Free 18-64 YRS SARS-COV-2 COVID-19 Unknown Completed Unive rsity of PFIZER VACCINE [facility] Branch SARS-COV-2 COVID-19 Unknown Completed Unive rsity of PFIZER VACCINE [facility] Branch Influenza Virus Unknown Completed Universit y of Vaccine (3+ yrs) [facility] d[facility] Branch SARS-COV-2 COVID-19 Unknown Completed Unive rsity of PFIZER VACCINE [facility] Twinrix (hep a/hep Unknown Completed Univer sity of b) [facility] Twinrix (hep a/hep Unknown Completed Univer sity of b) [facility] SARS-COV-2 COVID-19 Unknown Completed Unive rsity of CHRISTELLE-SUCROSE VACCINE [facility] 12 YRS+, BIVALENT Branch 0.3ML, IM, (PFIZER FOUNTAIN TOP) Pneumococcal Unknown Completed University o f Polysaccharide, [facility] ical PPSV23 (PNEUMOVAX) Branch Influenza Virus Unknown Completed Universit y of Vaccine Quad .5 mL [facility] 6+ MO Branch (FLUZONE/FLULAVAL/FL UARIX) Pneumococcal Unknown Completed University o f Polysaccharide, [facility] ical PPSV23 (PNEUMOVAX) Branch TDAP Unknown Completed [facility] Meningococcal Unknown Completed University of Polysaccharide [facility] (groups A, C, Y and Branc h W-135) conjugate vaccine (MCV4P) Heamophilus Unknown Completed University of Influenza B [facility] Pneumococcal 13 Unknown Completed Universit y of Conjugate, PCV13 [facility] dicwy (Prevnar 13) Branch Meningococcal B, OMV Unknown Completed Univ ersity [facility] Influenza Virus Unknown Completed Universit y of Vaccine Quad IM [facility] ical Multi-dose 6+ MO Branch Influenza Virus Unknown Completed Universit y of Vaccine Quad ID [facility] ical 18-64 YRS Branch Influenza Virus Unknown Completed Universit y of Vaccine Quad IM 3+ [facility] Y[facility] Branch Influenza Virus Unknown Completed Universit y of Vaccine [facility] Branch Pneumococcal Unknown Completed University o f Polysaccharide, [facility] ical PPSV23 (PNEUMOVAX) Branch Influenza Virus Unknown Completed Universit y of Vaccine Recomb Quad [facility] IM, Preserv and ABX Branc h Free 18-64 YRS TDAP (ADACEL) Unknown Completed University of VACCINE [facility] TDAP Unknown Completed [facility] Influenza Virus Unknown Completed Universit y of Vaccine Recomb Quad [facility] IM, Preserv and ABX Branc h Free 18-64 YRS SARS-COV-2 COVID-19 Unknown Completed Unive rsity of PFIZER VACCINE [facility] Branch SARS-COV-2 COVID-19 Unknown Completed Unive rsity of PFIZER VACCINE [facility] Branch Influenza Virus Unknown Completed Universit y of Vaccine (3+ yrs) [facility] dical Branch SARS-COV-2 COVID-19 Unknown Completed Unive rsity of PFIZER VACCINE [facility] Branch Twinrix (hep a/hep Unknown Completed Univer sity of b) [facility] Twinrix (hep a/hep Unknown Completed Univer sity of b) [facility] SARS-COV-2 COVID-19 Unknown Completed Unive rsity of CHRISTELLE-SUCROSE VACCINE [facility] 12 YRS+, BIVALENT Branch 0.3ML, IM, (PFIZER FOUNTAIN TOP) Pneumococcal Unknown Completed University o f Polysaccharide, [facility] ical PPSV23 (PNEUMOVAX) Branch Influenza Virus Unknown Completed Universit y of Vaccine Quad .5 mL [facility] 6+ MO Branch (FLUZONE/FLULAVAL/FL UARIX) Pneumococcal Unknown Completed University o f Polysaccharide, [facility] ical PPSV23 (PNEUMOVAX) Branch TDAP Unknown Completed [facility] Meningococcal Unknown Completed University of Polysaccharide [facility] (groups A, C, Y and Branc h W-135) conjugate vaccine (MCV4P) Heamophilus Unknown Completed University of Influenza B [facility] Pneumococcal 13 Unknown Completed Universit y of Conjugate, PCV13 [facility] dical (Prevnar 13) Branch Meningococcal B, OMV Unknown Completed Univ ersity of [facility] Influenza Virus Unknown Completed Universit y of Vaccine Quad IM [facility] ical Multi-dose 6+ MO Branch Influenza Virus Unknown Completed Universit y of Vaccine Quad ID [facility] ical 18-64 YRS Branch Influenza Virus Unknown Completed Universit y of Vaccine Quad IM 3+ [facility] Y[facility] Branch Influenza Virus Unknown Completed Universit y of Vaccine [facility] Branch Pneumococcal Unknown Completed University o f Polysaccharide, [facility] ical PPSV23 (PNEUMOVAX) Branch Influenza Virus Unknown Completed Universit y of Vaccine Recomb Quad [facility] IM, Preserv and ABX Branc h Free 18-64 YRS TDAP (ADACEL) Unknown Completed University of VACCINE [facility] TDAP Unknown Completed [facility] Influenza Virus Unknown Completed Universit y of Vaccine Recomb Quad [facility] IM, Preserv and ABX Branc h Free 18-64 YRS SARS-COV-2 COVID-19 Unknown Completed Unive rsity of PFIZER VACCINE [facility] Branch SARS-COV-2 COVID-19 Unknown Completed Unive rsity of PFIZER VACCINE [facility] Branch Influenza Virus Unknown Completed Universit y of Vaccine (3+ yrs) [facility] dical Branch SARS-COV-2 COVID-19 Unknown Completed Unive rsity of PFIZER VACCINE [facility] Branch Twinrix (hep a/hep Unknown Completed Univer sity of b) [facility] Twinrix (hep a/hep Unknown Completed Univer sity of b) [facility] SARS-COV-2 COVID-19 Unknown Completed Unive rsity of CHRISTELLE-SUCROSE VACCINE [facility] 12 YRS+, BIVALENT Branch 0.3ML, IM, (PFIZER FOUNTAIN TOP) Pneumococcal Unknown Completed University o f Polysaccharide, [facility] ical PPSV23 (PNEUMOVAX) Branch Influenza Virus Unknown Completed Universit y of Vaccine Quad .5 mL [facility] 6+ MO Branch (FLUZONE/FLULAVAL/FL UARIX) Pneumococcal Unknown Completed University o f Polysaccharide, [facility] ical PPSV23 (PNEUMOVAX) Branch TDAP Unknown Completed [facility] Meningococcal Unknown Completed University of Polysaccharide [facility] (groups A, C, Y and Branc h W-135) conjugate vaccine (MCV4P) Heamophilus Unknown Completed University of Influenza B [facility] Pneumococcal 13 Unknown Completed Universit y of Conjugate, PCV13 [facility] dical (Prevnar 13) Branch Meningococcal B, OMV Unknown Completed Univ ersity [facility] Influenza Virus Unknown Completed Universit y of Vaccine Quad IM [facility] ical Multi-dose 6+ MO Branch Influenza Virus Unknown Completed Universit y of Vaccine Quad ID [facility] ical 18-64 YRS Branch Influenza Virus Unknown Completed Universit y of Vaccine Quad IM 3+ [facility] Y[facility] Branch Influenza Virus Unknown Completed Universit y of Vaccine [facility] Branch Pneumococcal Unknown Completed University o f Polysaccharide, [facility] ical PPSV23 (PNEUMOVAX) Branch Influenza Virus Unknown Completed Universit y of Vaccine Recomb Quad [facility] IM, Preserv and ABX Branc h Free 18-64 YRS TDAP (ADACEL) Unknown Completed University VACCINE [facility] TDAP Unknown Completed [facility] Influenza Virus Unknown Completed Universit y of Vaccine Recomb Quad [facility] IM, Preserv and ABX Branc h Free 18-64 YRS SARS-COV-2 COVID-19 Unknown Completed Unive rsity of PFIZER VACCINE [facility]ano Branch SARS-COV-2 COVID-19 Unknown Completed Unive rsity of PFIZER VACCINE [facility] Branch Influenza Virus Unknown Completed Universit y of Vaccine (3+ yrs) [facility] dical Branch SARS-COV-2 COVID-19 Unknown Completed Unive rsity of PFIZER VACCINE [facility] Twinrix (hep a/hep Unknown Completed Univer sity of b) [facility] Twinrix (hep a/hep Unknown Completed Univer sity of b) [facility] Pneumococcal Unknown Completed University o f Polysaccharide, [facility] ical PPSV23 (PNEUMOVAX) Branch Influenza Virus Unknown Completed Universit y of Vaccine Quad .5 mL [facility] 6+ MO Branch (FLUZONE/FLULAVAL/FL UARIX) Pneumococcal Unknown Completed University o f Polysaccharide, [facility] ical PPSV23 (PNEUMOVAX) Branch TDAP Unknown Completed [facility] Meningococcal Unknown Completed [facility] (groups A, C, Y and Branc h W-135) conjugate vaccine (MCV4P) Heamophilus Unknown Completed [facility] B [facility] Pneumococcal 13 Unknown Completed Universit y of Conjugate, PCV13 [facility] (Prevnar 13) Branch Meningococcal B, OMV Unknown [facility] Completed Universit y of Vaccine Quad IM [facility] ical Multi-dose 6+ MO Branch Influenza Virus Unknown Completed Universit y of Vaccine Quad ID [facility] ical 18-64 YRS Branch Influenza Virus Unknown Completed Universit y of Vaccine Quad IM 3+ [facility] Y[facility] Branch Influenza Virus Unknown Completed Universit y of Vaccine [facility] Pneumococcal Unknown Completed University o f Polysaccharide, [facility] ical PPSV23 (PNEUMOVAX) Branch Influenza Virus Unknown Completed Universit y of Vaccine Recomb Quad [facility], Preserv and ABX Branc h Free 18-64 YRS TDAP (ADACEL) Unknown Completed University of VACCINE [facility] TDAP Unknown Completed [facility] Influenza Virus Unknown Completed Universit y of Vaccine Recomb Quad [facility] IM, Preserv and ABX Branc h Free 18-64 YRS SARS-COV-2 COVID-19 Unknown Completed Unive rsity of PFIZER VACCINE [facility] SARS-COV-2 COVID-19 Unknown Completed Unive rsity of PFIZER VACCINE [facility] Influenza Virus Unknown Completed Universit y of Vaccine (3+ yrs) [facility] dical Branch SARS-COV-2 COVID-19 Unknown Completed Unive rsity of PFIZER VACCINE [facility] Twinrix (hep a/hep Unknown Completed Univer sity of b) [facility] Twinrix (hep a/hep Unknown Completed Univer sity of b) [facility] Pneumococcal Unknown Completed University o f Polysaccharide, [facility] ica PPSV23 (PNEUMOVAX) Branch Pneumococcal Unknown Completed University o f Polysaccharide, [facility] ica PPSV23 (PNEUMOVAX) Branch TDAP Unknown Completed [facility] Meningococcal Unknown Completed University of Polysaccharide [facility] (groups A, C, Y and Branc h W-135) conjugate vaccine (MCV4P) Heamophilus Unknown Completed University of Influenza B [facility] Pneumococcal 13 Unknown Completed Universit y of Conjugate, PCV13 [facility] (Prevnar 13) Branch Meningococcal B, OMV Unknown Completed [facility] Unknown Completed Universit y of Vaccine Quad IM [facility] ica Multi-dose 6+ MO Branch Influenza Virus Unknown Completed Universit y of Vaccine Quad ID [facility] ical 18-64 YRS Branch Influenza Virus Unknown Completed Universit y of Vaccine Quad IM 3+ [facility] Y[facility] Branch Influenza Virus Unknown Completed Universit y of Vaccine [facility] Pneumococcal Unknown Completed University o f Polysaccharide, [facility] PPSV23 (PNEUMOVAX) Branch Influenza Virus Unknown Completed Universit y of Vaccine Recomb Quad [facility] IM, Preserv and ABX Branc h Free 18-64 YRS TDAP (ADACEL) Unknown Completed University [facility] TDAP Unknown Completed [facility] Influenza Virus Unknown Completed Universit y of Vaccine Recomb Quad [facility] IM, Preserv and ABX Branc h Free 18-64 YRS SARS-COV-2 COVID-19 Unknown Completed Unive rsity of PFIZER VACCINE [facility] SARS-COV-2 COVID-19 Unknown Completed Unive rsity of PFIZER VACCINE [facility] Branch Influenza Virus Unknown Completed Universit y of Vaccine (3+ yrs) [facility] Branch SARS-COV-2 COVID-19 Unknown Completed Unive rsity of PFIZER VACCINE [facility] Twinrix (hep a/hep Unknown Completed Univer sity of b) [facility] Twinrix (hep a/hep Unknown Completed Univer sity of b) [facility] Pneumococcal Unknown Completed University o f Polysaccharide, [facility] ica PPSV23 (PNEUMOVAX) Branch Pneumococcal Unknown Completed University o f Polysaccharide, [facility] ical PPSV23 (PNEUMOVAX) Branch TDAP Unknown Completed [facility] Meningococcal Unknown Completed University of Polysaccharide [facility] (groups A, C, Y and Branc h W-135) conjugate vaccine (MCV4P) Heamophilus Unknown Completed [facility] Influenza B [facility] Pneumococcal 13 Unknown Completed Universit y of Conjugate, PCV13 [facility] (Prevnar 13) Chromo Meningococcal B, OMV Unknown Completed [facility] Influ[facility] Virus Unknown Completed Universit y of Vaccine Quad IM [facility] Multi-dose 6+ MO Branch Influenza Virus Unknown Completed Universit y of Vaccine Quad ID [facility] ical 18-64 YRS Branch Influenza Virus Unknown Completed Universit y of Vaccine Quad IM 3+ [facility] YRS Branch Influenza Virus Unknown Completed Universit y of Vaccine [facility] Pneumococcal Unknown Completed University o f Polysaccharide, [facility] PPSV23 (PNEUMOVAX) Branch Influenza Virus Unknown Completed Universit y of Vaccine Recomb Quad [facility] IM, Preserv and ABX Branc h Free 18-64 YRS TDAP (ADACEL) Unknown Completed University [facility] TDAP Unknown Completed [facility] Influenza Virus Unknown Completed Universit y of Vaccine Recomb Quad [facility] IM, Preserv and ABX Branc h Free 18-64 YRS SARS-COV-2 COVID-19 Unknown Completed Unive rsity of PFIZER VACCINE [facility] SARS-COV-2 COVID-19 Unknown Completed Unive rsity of PFIZER VACCINE [facility] Branch Influenza Virus Unknown Completed Universit y of Vaccine (3+ yrs) [facility] SARS-COV-2 COVID-19 Unknown Completed Unive rsity of PFIZER VACCINE [facility] Twinrix (hep a/hep Unknown Completed Univer sity of b) [facility] Twinrix (hep a/hep Unknown Completed Univer sity of b) [facility] Pneumococcal Unknown Completed University o f Polysaccharide, [facility] ical PPSV23 (PNEUMOVAX) Branch Pneumococcal Unknown Completed University o f Polysaccharide, [facility] ical PPSV23 (PNEUMOVAX) Branch TDAP Unknown Completed [facility] Meningococcal Unknown Completed University of Polysaccharide [facility] (groups A, C, Y and Branc h W-135) conjugate vaccine (MCV4P) Heamophilus Unknown Completed University of Influenza B [facility] Pneumococcal 13 Unknown Completed Universit y of Conjugate, PCV13 [facility] dicwy (Prevnar 13) Branch Meningococcal B, OMV Unknown Completed [facility] Influ[facility] Virus Unknown Completed Universit y of Vaccine Quad IM [facility] Multi-dose 6+ MO Branch Influenza Virus Unknown Completed Universit y of Vaccine Quad ID [facility] ical 18-64 YRS Branch Influenza Virus Unknown Completed Universit y of Vaccine Quad IM 3+ [facility] Y[facility] Branch Influenza Virus Unknown Completed Universit y of Vaccine [facility] Pneumococcal Unknown Completed University o f Polysaccharide, [facility] PPSV23 (PNEUMOVAX) Branch Influenza Virus Unknown Completed Universit y of Vaccine Recomb Quad [facility] IM, Preserv and ABX Branc h Free 18-64 YRS TDAP (ADACEL) Unknown Completed University of VACCINE [facility] TDAP Unknown Completed [facility] Influenza Virus Unknown Completed Universit y of Vaccine Recomb Quad [facility] IM, Preserv and ABX Branc h Free 18-64 YRS SARS-COV-2 COVID-19 Unknown Completed Unive rsity of PFIZER VACCINE [facility] Branch SARS-COV-2 COVID-19 Unknown Completed Unive rsity of PFIZER VACCINE [facility] Branch Influenza Virus Unknown Completed Universit y of Vaccine (3+ yrs) [facility] dical Branch SARS-COV-2 COVID-19 Unknown Completed Unive rsity of PFIZER VACCINE [facility] Branch Twinrix (hep a/hep Unknown Completed Univer sity of b) [facility] Pneumococcal Unknown Completed University o f Polysaccharide, [facility] ical PPSV23 (PNEUMOVAX) Branch Pneumococcal Unknown Completed University o f Polysaccharide, [facility] ical PPSV23 (PNEUMOVAX) Branch TDAP Unknown Completed [facility] Meningococcal Unknown Completed University of Polysaccharide [facility] (groups A, C, Y and Branc h W-135) conjugate vaccine (MCV4P) Heamophilus Unknown Completed University Influenza B [facility] Pneumococcal 13 Unknown Completed Universit y of Conjugate, PCV13 [facility] dical (Prevnar 13) Branch Meningococcal B, OMV Unknown Completed [facility] Influ[facility] Virus Unknown Completed Universit y of Vaccine Quad IM [facility] ical Multi-dose 6+ MO Branch Influenza Virus Unknown Completed Universit y of Vaccine Quad ID [facility] ical 18-64 YRS Branch Influenza Virus Unknown Completed Universit y of Vaccine Quad IM 3+ [facility] Y[facility] Branch Influenza Virus Unknown Completed Universit y of Vaccine [facility] Branch Pneumococcal Unknown Completed University o f Polysaccharide, [facility] ical PPSV23 (PNEUMOVAX) Branch Influenza Virus Unknown Completed Universit y of Vaccine Recomb Quad [facility] IM, Preserv and ABX Branc h Free 18-64 YRS TDAP (ADACEL) Unknown Completed University of VACCINE [facility] TDAP Unknown Completed [facility] Influenza Virus Unknown Completed Universit y of Vaccine Recomb Quad [facility] IM, Preserv and ABX Branc h Free 18-64 YRS SARS-COV-2 COVID-19 Unknown Completed Unive rsity of PFIZER VACCINE [facility] Branch SARS-COV-2 COVID-19 Unknown Completed Unive rsity of PFIZER VACCINE [facility] Branch Influenza Virus Unknown Completed Universit y of Vaccine (3+ yrs) [facility] dical Branch SARS-COV-2 COVID-19 Unknown Completed Unive rsity of PFIZER VACCINE [facility] Branch Twinrix (hep a/hep Unknown Completed Univer sity of b) [facility] Pneumococcal Unknown Completed University o f Polysaccharide, [facility] ical PPSV23 (PNEUMOVAX) Branch Pneumococcal Unknown Completed University o f Polysaccharide, [facility] ical PPSV23 (PNEUMOVAX) Branch TDAP Unknown Completed [facility] Meningococcal Unknown Completed University of Polysaccharide [facility] (groups A, C, Y and Branc h W-135) conjugate vaccine (MCV4P) Heamophilus Unknown Completed University of Influenza B [facility] Pneumococcal 13 Unknown Completed Universit y of Conjugate, PCV13 [facility] dicwy (Prevnar 13) Branch Meningococcal B, OMV Unknown Completed [facility] Influ[facility] Virus Unknown Completed Universit y of Vaccine Quad IM [facility] ical Multi-dose 6+ MO Branch Influenza Virus Unknown Completed Universit y of Vaccine Quad ID [facility] ical 18-64 YRS Branch Influenza Virus Unknown Completed Universit y of Vaccine Quad IM 3+ [facility] Y[facility] Branch Influenza Virus Unknown Completed Universit y of Vaccine [facility] Pneumococcal Unknown Completed University o f Polysaccharide, [facility] ical PPSV23 (PNEUMOVAX) Branch Influenza Virus Unknown Completed Universit y of Vaccine Recomb Quad [facility] IM, Preserv and ABX Branc h Free 18-64 YRS TDAP (ADACEL) Unknown Completed University VACCINE [facility] TDAP Unknown Completed [facility] Influenza Virus Unknown Completed Universit y of Vaccine Recomb Quad [facility] IM, Preserv and ABX Branc h Free 18-64 YRS SARS-COV-2 COVID-19 Unknown Completed Unive rsity of PFIZER VACCINE [facility] Branch SARS-COV-2 COVID-19 Unknown Completed Unive rsity of PFIZER VACCINE [facility] Branch Influenza Virus Unknown Completed Universit y of Vaccine (3+ yrs) [facility] dical Branch SARS-COV-2 COVID-19 Unknown Completed Unive rsity of PFIZER VACCINE [facility] Branch Pneumococcal Unknown Completed University o f Polysaccharide, [facility] ical PPSV23 (PNEUMOVAX) Branch Pneumococcal Unknown Completed University o f Polysaccharide, [facility] ical PPSV23 (PNEUMOVAX) Branch TDAP Unknown Completed [facility] Meningococcal Unknown Completed University Polysaccharide [facility] (groups A, C, Y and Branc h W-135) conjugate vaccine (MCV4P) Heamophilus Unknown Completed [facility] B [facility] Pneumococcal 13 Unknown Completed Universit y of Conjugate, PCV13 [facility] (Prevnar 13) Branch Meningococcal B, OMV Unknown Completed [facility] Influenza Virus Unknown Completed Universit y of Vaccine Quad IM [facility] ical Multi-dose 6+ MO Branch Influenza Virus Unknown Completed Universit y of Vaccine Quad ID [facility] ical 18-64 YRS Branch Influenza Virus Unknown Completed Universit y of Vaccine Quad IM 3+ [facility] Y[facility] Branch Influenza Virus Unknown Completed Universit y of Vaccine [facility] Pneumococcal Unknown Completed University o f Polysaccharide, [facility] ical PPSV23 (PNEUMOVAX) Branch Influenza Virus Unknown Completed Universit y of Vaccine Recomb Quad [facility] IM, Preserv and ABX Branc h Free 18-64 YRS TDAP (ADACEL) Unknown Completed University of VACCINE [facility] TDAP Unknown Completed [facility] Influenza Virus Unknown Completed Universit y of Vaccine Recomb Quad [facility] IM, Preserv and ABX Branc h Free 18-64 YRS SARS-COV-2 COVID-19 Unknown Completed Unive rsity of PFIZER VACCINE [facility] Branch SARS-COV-2 COVID-19 Unknown Completed Unive rsity of PFIZER VACCINE [facility] Branch Influenza Virus Unknown Completed Universit y of Vaccine (3+ yrs) [facility] d[facility] Branch SARS-COV-2 COVID-19 Unknown Completed Unive rsity of PFIZER VACCINE [facility] Branch Pneumococcal Unknown Completed University o f Polysaccharide, [facility] ical PPSV23 (PNEUMOVAX) Branch Pneumococcal Unknown Completed University o f Polysaccharide, [facility] ical PPSV23 (PNEUMOVAX) Branch TDAP Unknown Completed [facility] Meningococcal Unknown Completed University Polysaccharide [facility] (groups A, C, Y and Branc h W-135) conjugate vaccine (MCV4P) Heamophilus Unknown Completed [place] of Influenza B [facility] Pneumococcal 13 Unknown Completed Universit y of Conjugate, PCV13 [facility] (Prevnar 13) Branch Meningococcal B, OMV Unknown [facility] Completed [facility]it y of Vaccine Quad IM [facility] ical Multi-dose 6+ MO Branch Influenza Virus Unknown Completed Universit y of Vaccine Quad ID [facility] ical 18-64 YRS Branch Influenza Virus Unknown Completed Universit y of Vaccine Quad IM 3+ [facility] YRS Branch Influenza Virus Unknown Completed Universit y of Vaccine [facility] Pneumococcal Unknown Completed University o f Polysaccharide, [facility] ical PPSV23 (PNEUMOVAX) Branch Influenza Virus Unknown Completed Universit y of Vaccine Recomb Quad [facility] IM, Preserv and ABX Branc h Free 18-64 YRS TDAP (ADACEL) Unknown Completed University of VACCINE [facility] TDAP Unknown Completed [facility] Influenza Virus Unknown Completed Universit y of Vaccine Recomb Quad [facility] IM, Preserv and ABX Branc h Free 18-64 YRS SARS-COV-2 COVID-19 Unknown Completed Unive rsity of PFIZER VACCINE [facility] Branch SARS-COV-2 COVID-19 Unknown Completed Unive rsity of PFIZER VACCINE [facility] Branch Influenza Virus Unknown Completed Universit y of Vaccine (3+ yrs) [facility] d[facility] Branch SARS-COV-2 COVID-19 Unknown Completed Unive rsity of PFIZER VACCINE [facility] Branch Pneumococcal Unknown Completed University o f Polysaccharide, [facility] ical PPSV23 (PNEUMOVAX) Branch Pneumococcal Unknown Completed University o f Polysaccharide, [facility] ical PPSV23 (PNEUMOVAX) Branch TDAP Unknown Completed [facility] Meningococcal Unknown Completed University of Polysaccharide [facility] (groups A, C, Y and Branc h W-135) conjugate vaccine (MCV4P) Heamophilus Unknown Completed [facility] Influenza B [facility] Pneumococcal 13 Unknown Completed Universit y of Conjugate, PCV13 [facility] dical (Prevnar 13) Branch Meningococcal B, OMV Unknown Completed Univ ersity [facility] Influenza Virus Unknown Completed Universit y of Vaccine Quad IM [facility] ical Multi-dose 6+ MO Branch Influenza Virus Unknown Completed Universit y of Vaccine Quad ID [facility] ical 18-64 YRS Branch Influenza Virus Unknown Completed [facility]it y of Vaccine Quad IM 3+ [facility] Y[facility] Branch Influenza Virus Unknown Completed Universit y of Vaccine [facility] Pneumococcal Unknown Completed University o f Polysaccharide, [facility] ica PPSV23 (PNEUMOVAX) Branch Influenza Virus Unknown Completed Universit y of Vaccine Recomb Quad [facility] IM, Preserv and ABX Branc h Free 18-64 YRS TDAP (ADACEL) Unknown Completed University of VACCINE [facility] TDAP Unknown Completed [facility] Influenza Virus Unknown Completed Universit y of Vaccine Recomb Quad [facility] IM, Preserv and ABX Branc h Free 18-64 YRS SARS-COV-2 COVID-19 Unknown Completed Unive rsity of PFIZER VACCINE [facility] Branch SARS-COV-2 COVID-19 Unknown Completed Unive rsity of PFIZER VACCINE [facility] Branch Influenza Virus Unknown Completed Universit y of Vaccine (3+ yrs) [facility] d[facility] Branch SARS-COV-2 COVID-19 Unknown Completed Unive rsity of PFIZER VACCINE [facility] Branch Pneumococcal Unknown Completed University o f Polysaccharide, [facility] ical PPSV23 (PNEUMOVAX) Branch Pneumococcal Unknown Completed University o f Polysaccharide, [facility] ical PPSV23 (PNEUMOVAX) Branch TDAP Unknown Completed [facility] Meningococcal Unknown Completed University of Polysaccharide [facility] (groups A, C, Y and Branc h W-135) conjugate vaccine (MCV4P) Heamophilus Unknown Completed [facility] Influenza B [facility] Pneumococcal 13 Unknown Completed Universit y of Conjugate, PCV13 [facility] dical (Prevnar 13) Branch Meningococcal B, OMV Unknown Completed Univ ersity [facility] Influenza Virus Unknown Completed Universit y of Vaccine Quad IM [facility] ical Multi-dose 6+ MO Branch Influenza Virus Unknown Completed Universit y of Vaccine Quad ID [facility] ical 18-64 YRS Branch Influenza Virus Unknown Completed [facility] y of Vaccine Quad IM 3+ [facility] Y[facility] Branch Influenza Virus Unknown Completed Universit y of Vaccine [facility] Pneumococcal Unknown Completed University o f Polysaccharide, [facility] ical PPSV23 (PNEUMOVAX) Branch Influenza Virus Unknown Completed Universit y of Vaccine Recomb Quad [facility] IM, Preserv and ABX Branc h Free 18-64 YRS TDAP (ADACEL) Unknown Completed University of VACCINE [facility] TDAP Unknown Completed [facility] Influenza Virus Unknown Completed Universit y of Vaccine Recomb Quad [facility] IM, Preserv and ABX Branc h Free 18-64 YRS SARS-COV-2 COVID-19 Unknown Completed Unive rsity of PFIZER VACCINE [facility] Branch SARS-COV-2 COVID-19 Unknown Completed Unive rsity of PFIZER VACCINE [facility] Branch Influenza Virus Unknown Completed Universit y of Vaccine (3+ yrs) [facility] d[facility] Branch SARS-COV-2 COVID-19 Unknown Completed Unive rsity of PFIZER VACCINE [facility] Branch Pneumococcal Unknown Completed University o f Polysaccharide, [facility] ica PPSV23 (PNEUMOVAX) Branch Pneumococcal Unknown Completed University o f Polysaccharide, [facility] ical PPSV23 (PNEUMOVAX) Branch TDAP Unknown Completed [facility] Meningococcal Unknown Completed University of Polysaccharide [facility] (groups A, C, Y and Branc h W-135) conjugate vaccine (MCV4P) Heamophilus Unknown Completed University of Influenza B [facility] Pneumococcal 13 Unknown Completed Universit y of Conjugate, PCV13 [facility] dicwy (Prevnar 13) Branch Meningococcal B, OMV Unknown [facility] Unknown Completed [facility]it y of Vaccine Quad IM [facility] ical Multi-dose 6+ MO Branch Influenza Virus Unknown Completed Universit y of Vaccine Quad ID [facility] ical 18-64 YRS Branch Influenza Virus Unknown Completed [facility]it y of Vaccine Quad IM 3+ [facility] Y[facility] Branch Influenza Virus Unknown Completed Universit y of Vaccine [facility] Pneumococcal Unknown Completed University o f Polysaccharide, [facility] ical PPSV23 (PNEUMOVAX) Branch Influenza Virus Unknown Completed Universit y of Vaccine Recomb Quad [facility] IM, Preserv and ABX Branc h Free 18-64 YRS TDAP (ADACEL) Unknown Completed University VACCINE [facility] TDAP Unknown Completed [facility] Influenza Virus Unknown Completed Universit y of Vaccine Recomb Quad [facility] IM, Preserv and ABX Branc h Free 18-64 YRS SARS-COV-2 COVID-19 Unknown Completed Unive rsity of PFIZER VACCINE [facility] Branch SARS-COV-2 COVID-19 Unknown Completed Unive rsity of PFIZER VACCINE [facility] Branch Influenza Virus Unknown Completed Universit y of Vaccine (3+ yrs) [facility] d[facility] Branch SARS-COV-2 COVID-19 Unknown Completed Unive rsity of PFIZER VACCINE [facility] Branch Pneumococcal Unknown Completed University o f Polysaccharide, [facility] ical PPSV23 (PNEUMOVAX) Branch Pneumococcal Unknown Completed University o f Polysaccharide, [facility] ical PPSV23 (PNEUMOVAX) Branch TDAP Unknown Completed [facility] Meningococcal Unknown Completed [facility] (groups A, C, Y and Branc h W-135) conjugate vaccine (MCV4P) Heamophilus Unknown Completed [facility] Influenza B [facility] Pneumococcal 13 Unknown Completed Universit y of Conjugate, PCV13 [facility] (Prevnar 13) Branch Meningococcal B, OMV Unknown [facility] Unknown Completed [facility]it y of Vaccine Quad IM [facility] ical Multi-dose 6+ MO Branch Influenza Virus Unknown Completed Universit y of Vaccine Quad ID [facility] ical 18-64 YRS Branch Influenza Virus Unknown Completed Universit y of Vaccine Quad IM 3+ [facility] Y[facility] Branch Influenza Virus Unknown Completed Universit y of Vaccine [facility] Pneumococcal Unknown Completed University o f Polysaccharide, [facility] ical PPSV23 (PNEUMOVAX) Branch Influenza Virus Unknown Completed Universit y of Vaccine Recomb Quad [facility] IM, Preserv and ABX Branc h Free 18-64 YRS TDAP (ADACEL) Unknown Completed University VACCINE [facility] TDAP Unknown Completed [facility] Influenza Virus Unknown Completed Universit y of Vaccine Recomb Quad [facility] IM, Preserv and ABX Branc h Free 18-64 YRS SARS-COV-2 COVID-19 Unknown Completed Unive rsity of PFIZER VACCINE [facility] Branch SARS-COV-2 COVID-19 Unknown Completed Unive rsity of PFIZER VACCINE [facility] Branch Influenza Virus Unknown Completed Universit y of Vaccine (3+ yrs) [facility] d[facility] Branch SARS-COV-2 COVID-19 Unknown Completed Unive rsity of PFIZER VACCINE [facility] Branch Pneumococcal Unknown Completed University o f Polysaccharide, [facility] ical PPSV23 (PNEUMOVAX) Branch Pneumococcal Unknown Completed University o f Polysaccharide, [facility] ical PPSV23 (PNEUMOVAX) Branch TDAP Unknown Completed [facility] Meningococcal Unknown Completed University of Polysaccharide [facility] (groups A, C, Y and Branc h W-135) conjugate vaccine (MCV4P) Heamophilus Unknown Completed University of Influenza B [facility] Pneumococcal 13 Unknown Completed Universit y of Conjugate, PCV13 [facility] (Prevnar 13) Branch Meningococcal B, OMV Unknown [facility] Influ[facility] Virus Unknown Completed Universit y of Vaccine Quad IM [facility] Multi-dose 6+ MO Branch Influenza Virus Unknown Completed Universit y of Vaccine Quad ID [facility] ical 18-64 YRS Branch Influenza Virus Unknown Completed Universit y of Vaccine Quad IM 3+ [facility] YRS Branch Influenza Virus Unknown Completed Universit y of Vaccine [facility] Pneumococcal Unknown Completed University o f Polysaccharide, [facility] ical PPSV23 (PNEUMOVAX) Branch Influenza Virus Unknown Completed Universit y of Vaccine Recomb Quad [facility] IM, Preserv and ABX Branc h Free 18-64 YRS TDAP (ADACEL) Unknown Completed University VACCINE [facility] TDAP Unknown Completed [facility] Influenza Virus Unknown Completed Universit y of Vaccine Recomb Quad [facility] IM, Preserv and ABX Branc h Free 18-64 YRS SARS-COV-2 COVID-19 Unknown Completed Unive rsity of PFIZER VACCINE [facility] SARS-COV-2 COVID-19 Unknown Completed Unive rsity of PFIZER VACCINE [facility] Branch Influenza Virus Unknown Completed Universit y of Vaccine (3+ yrs) [facility] d[facility] Branch Pneumococcal Unknown Completed University o f Polysaccharide, [facility] ical PPSV23 (PNEUMOVAX) Branch Pneumococcal Unknown Completed University o f Polysaccharide, [facility] ical PPSV23 (PNEUMOVAX) Branch TDAP Unknown Completed [facility] Meningococcal Unknown Completed University of Polysaccharide [facility] (groups A, C, Y and Branc h W-135) conjugate vaccine (MCV4P) Heamophilus Unknown Completed University of Influenza B [facility] Pneumococcal 13 Unknown Completed Universit y of Conjugate, PCV13 [facility] dical (Prevnar 13) Branch Meningococcal B, OMV Unknown [facility] Unknown Completed [facility] y [facility] Vaccine Quad IM [facility] Multi-dose 6+ MO Branch Influenza Virus Unknown Completed [facility] y [facility] Vaccine Quad ID [facility] ical 18-64 YRS Branch Influenza Virus Unknown Completed [facility]it y of Vaccine Quad IM 3+ [facility] Y[facility] Branch Influenza Virus Unknown Completed Universit y of Vaccine [facility] Pneumococcal Unknown Completed University o f Polysaccharide, [facility] ical PPSV23 (PNEUMOVAX) Branch Influenza Virus Unknown Completed Universit y of Vaccine Recomb Quad [facility] IM, Preserv and ABX Branc h Free 18-64 YRS TDAP (ADACEL) Unknown Completed University [facility] TDAP Unknown Completed [facility] Influenza Virus Unknown Completed Universit y of Vaccine Recomb Quad [facility] IM, Preserv and ABX Branc h Free 18-64 YRS SARS-COV-2 COVID-19 Unknown Completed Unive rsity of PFIZER VACCINE [facility] Branch SARS-COV-2 COVID-19 Unknown Completed Unive rsity of PFIZER VACCINE [facility] Branch Pneumococcal Unknown Completed University o f Polysaccharide, [facility] ical PPSV23 (PNEUMOVAX) Branch Pneumococcal Unknown Completed University o f Polysaccharide, [facility] ical PPSV23 (PNEUMOVAX) Branch TDAP Unknown Completed [facility] Meningococcal Unknown Completed University [facility] (groups A, C, Y and Branc h W-135) conjugate vaccine (MCV4P) Heamophilus Unknown Completed [place] of Influenza B [facility] Pneumococcal 13 Unknown Completed Universit y of Conjugate, PCV13 [facility] dical (Prevnar 13) Branch Meningococcal B, OMV Unknown [facility] Influ[facility] Virus Unknown Completed [facility]it y of Vaccine Quad IM [facility] ical Multi-dose 6+ MO Branch Influenza Virus Unknown Completed Universit y of Vaccine Quad ID [facility] ical 18-64 YRS Branch Influenza Virus Unknown Completed [facility]it y of Vaccine Quad IM 3+ [facility] Y[facility] Branch Influenza Virus Unknown Completed Universit y of Vaccine [facility] Pneumococcal Unknown Completed University o f Polysaccharide, [facility] ical PPSV23 (PNEUMOVAX) Branch Influenza Virus Unknown Completed Universit y of Vaccine Recomb Quad [facility] IM, Preserv and ABX Branc h Free 18-64 YRS TDAP (ADACEL) Unknown Completed [facility] TDAP Unknown Completed [facility] Influenza Virus Unknown Completed Universit y of Vaccine Recomb Quad [facility] IM, Preserv and ABX Branc h Free 18-64 YRS SARS-COV-2 COVID-19 Unknown Completed Unive rsity of PFIZER VACCINE [facility] SARS-COV-2 COVID-19 Unknown Completed Unive rsity of PFIZER VACCINE [facility] Branch Pneumococcal Unknown Completed University o f Polysaccharide, [facility] ical PPSV23 (PNEUMOVAX) Branch Pneumococcal Unknown Completed University o f Polysaccharide, [facility] ical PPSV23 (PNEUMOVAX) Branch TDAP Unknown Completed [facility] Meningococcal Unknown Completed [facility] Polysaccharide [facility] (groups A, C, Y and Branc h W-135) conjugate vaccine (MCV4P) Heamophilus Unknown Completed [facility] Influenza B [facility] Pneumococcal 13 Unknown Completed Universit y of Conjugate, PCV13 [facility] dicwy (Prevnar 13) Branch Meningococcal B, OMV Unknown Com[facility] Influ[facility] Virus Unknown Completed [facility]it y of Vaccine Quad IM [facility] ical Multi-dose 6+ MO Branch Influenza Virus Unknown Completed Universit y of Vaccine Quad ID [facility] ical 18-64 YRS Branch Influenza Virus Unknown Completed [facility]it y of Vaccine Quad IM 3+ [facility] Y[facility] Branch Influenza Virus Unknown Completed Universit y of Vaccine [facility] Pneumococcal Unknown Completed University o f Polysaccharide, [facility] ical PPSV23 (PNEUMOVAX) Branch Influenza Virus Unknown Completed Universit y of Vaccine Recomb Quad [facility] IM, Preserv and ABX Branc h Free 18-64 YRS TDAP (ADACEL) Unknown Completed [facility] TDAP Unknown Completed [facility] Influenza Virus Unknown Completed Universit y of Vaccine Recomb Quad [facility] IM, Preserv and ABX Branc h Free 18-64 YRS SARS-COV-2 COVID-19 Unknown Completed Unive rsity of PFIZER VACCINE [facility] Branch SARS-COV-2 COVID-19 Unknown Completed Unive rsity of PFIZER VACCINE [facility] Branch Pneumococcal Unknown Completed University o f Polysaccharide, [facility] ical PPSV23 (PNEUMOVAX) Branch Pneumococcal Unknown Completed University o f Polysaccharide, [facility] ical PPSV23 (PNEUMOVAX) Branch TDAP Unknown Completed [facility] Meningococcal Unknown Completed [facility] Polysaccharide [place] [facility] (groups A, C, Y and Branc h W-135) conjugate vaccine (MCV4P) Heamophilus Unknown Completed University of Influenza B [facility] Pneumococcal 13 Unknown Completed Universit y of Conjugate, PCV13 [facility] dical (Prevnar 13) Branch Meningococcal B, OMV Unknown [facility] Influ[facility] Virus Unknown Completed [facility] y of Vaccine Quad IM [facility] Multi-dose 6+ MO Branch Influenza Virus Unknown Completed [facility] y of Vaccine Quad ID [facility] 18-64 YRS Branch Influenza Virus Unknown Completed Universit y of Vaccine Quad IM 3+ [facility] Y[facility] Branch Influenza Virus Unknown Completed Universit y of Vaccine [facility] Branch Pneumococcal Unknown Completed University o f Polysaccharide, [place] [facility] ical PPSV23 (PNEUMOVAX) Branch Influenza Virus Unknown Completed Universit y of Vaccine Recomb Quad [facility] IM, Preserv and ABX Bran h Free 18-64 YRS TDAP (ADACEL) Unknown Completed University of VACCINE [facility] TDAP Unknown Completed [facility] Influenza Virus Unknown Completed Universit y of Vaccine Recomb Quad [facility] IM, Preserv and ABX Branc h Free 18-64 YRS SARS-COV-2 COVID-19 Unknown Completed Unive rsity of PFIZER VACCINE [facility] Branch SARS-COV-2 COVID-19 Unknown Completed Unive rsity of PFIZER VACCINE [facility] Branch Pneumococcal Unknown Completed University o f Polysaccharide, [place] [facility] PPSV23 (PNEUMOVAX) Branch Pneumococcal Unknown Completed [facility] o f Polysaccharide, [place] [facility] ical PPSV23 (PNEUMOVAX) Branch TDAP Unknown Completed [facility] Meningococcal Unknown Completed University of Polysaccharide [facility] (groups A, C, Y and Branc h W-135) conjugate vaccine (MCV4P) Heamophilus Unknown Completed University of Influenza B [facility] Pneumococcal 13 Unknown Completed Universit y of Conjugate, PCV13 [facility] dical (Prevnar 13) Branch Meningococcal B, OMV Unknown Completed Univ ersity [facility] Influenza Virus Unknown Completed [facility] y of Vaccine Quad IM [facility] Multi-dose 6+ MO Branch Influenza Virus Unknown Completed [facility] y of Vaccine Quad ID [facility] 18-64 YRS Branch Influenza Virus Unknown Completed Universit y of Vaccine Quad IM 3+ [facility] Y[facility] Branch Influenza Virus Unknown Completed Universit y of Vaccine [facility] Branch Pneumococcal Unknown Completed University o f Polysaccharide, [place] [facility] ical PPSV23 (PNEUMOVAX) Branch Influenza Virus Unknown Completed Universit y of Vaccine Recomb Quad [facility] IM, Preserv and ABX Branc h Free 18-64 YRS TDAP (ADACEL) Unknown Completed [facility] TDAP Unknown Completed [facility] Influenza Virus Unknown Completed Universit y of Vaccine Recomb Quad [facility] IM, Preserv and ABX Branc h Free 18-64 YRS SARS-COV-2 COVID-19 Unknown Completed Unive rsity of PFIZER VACCINE [facility] SARS-COV-2 COVID-19 Unknown Completed Unive rsity of PFIZER VACCINE [facility] Branch Pneumococcal Unknown Completed University o f Polysaccharide, [facility] ical PPSV23 (PNEUMOVAX) Branch Pneumococcal Unknown Completed University o f Polysaccharide, [facility] ical PPSV23 (PNEUMOVAX) Branch TDAP Unknown Completed [facility] Meningococcal Unknown Completed [facility] (groups A, C, Y and Branc h W-135) conjugate vaccine (MCV4P) Heamophilus Unknown Completed [facility] Influenza B [facility] Pneumococcal 13 Unknown Completed [facility] Conjugate, PCV13 [place] [facility] dicwy (Prevnar 13) Branch Meningococcal B, OMV Unknown [facility] Influ[facility] Virus Unknown Completed Universit y of Vaccine Quad IM [facility] ical Multi-dose 6+ MO Branch Influenza Virus Unknown Completed Universit y of Vaccine Quad ID [facility] ical 18-64 YRS Branch Influenza Virus Unknown Completed Universit y of Vaccine Quad IM 3+ [facility] Y[facility] Branch Influenza Virus Unknown Completed Universit y of Vaccine [facility] Pneumococcal Unknown Completed University o f Polysaccharide, [facility] ical PPSV23 (PNEUMOVAX) Branch Influenza Virus Unknown Completed Universit y of Vaccine Recomb Quad [facility] IM, Preserv and ABX Branc h Free 18-64 YRS TDAP (ADACEL) Unknown Completed [facility] TDAP Unknown Completed [facility] Influenza Virus Unknown Completed Universit y of Vaccine Recomb Quad [facility] IM, Preserv and ABX Branc h Free 18-64 YRS SARS-COV-2 COVID-19 Unknown Completed Unive rsity of PFIZER VACCINE [facility] SARS-COV-2 COVID-19 Unknown Completed Unive rsity of PFIZER VACCINE [facility] Branch Pneumococcal Unknown Completed University o f Polysaccharide, [facility] ical PPSV23 (PNEUMOVAX) Branch Pneumococcal Unknown Completed University o f Polysaccharide, [facility] ical PPSV23 (PNEUMOVAX) Branch TDAP Unknown Completed [facility] Meningococcal Unknown Completed University Polysaccharide [facility] (groups A, C, Y and Branc h W-135) conjugate vaccine (MCV4P) Heamophilus Unknown Completed [facility] Influenza B [facility] Pneumococcal 13 Unknown Completed Universit y of Conjugate, PCV13 [facility] dical (Prevnar 13) Branch Meningococcal B, OMV Unknown Com[facility] Influ[facility] Virus Unknown Completed Universit y of Vaccine Quad IM [facility] ical Multi-dose 6+ MO Branch Influenza Virus Unknown Completed Universit y of Vaccine Quad ID [facility] ical 18-64 YRS Branch Influenza Virus Unknown Completed Universit y of Vaccine Quad IM 3+ [facility] Y[facility] Branch Influenza Virus Unknown Completed Universit y of Vaccine [facility] Pneumococcal Unknown Completed University o f Polysaccharide, [facility] ical PPSV23 (PNEUMOVAX) Branch Influenza Virus Unknown Completed Universit y of Vaccine Recomb Quad [facility], Preserv and ABX Branc h Free 18-64 YRS TDAP (ADACEL) Unknown Completed University VACCINE [facility] TDAP Unknown Completed [facility] Influenza Virus Unknown Completed Universit y of Vaccine Recomb Quad [facility] IM, Preserv and ABX Branc h Free 18-64 YRS SARS-COV-2 COVID-19 Unknown Completed Unive rsity of PFIZER VACCINE [facility] Branch SARS-COV-2 COVID-19 Unknown Completed Unive rsity of PFIZER VACCINE [facility] Branch Pneumococcal Unknown Completed University o f Polysaccharide, [facility] ical PPSV23 (PNEUMOVAX) Branch Pneumococcal Unknown Completed University o f Polysaccharide, [facility] ical PPSV23 (PNEUMOVAX) Branch TDAP Unknown Completed [facility] Meningococcal Unknown Completed University Polysaccharide [facility] (groups A, C, Y and Branc h W-135) conjugate vaccine (MCV4P) Heamophilus Unknown Completed [place] of Influenza B [facility] Pneumococcal 13 Unknown Completed Universit y of Conjugate, PCV13 [facility] dical (Prevnar 13) Branch Meningococcal B, OMV Unknown Com[facility] Influenza Virus Unknown Completed Universit y of Vaccine Quad IM [facility] ical Multi-dose 6+ MO Branch Influenza Virus Unknown Completed [facility] of Vaccine Quad ID [place] [facility] 18-64 YRS Branch Influenza Virus Unknown Completed Universit y of Vaccine Quad IM 3+ [facility] YRS Branch Influenza Virus Unknown Completed Universit y of Vaccine [facility] Pneumococcal Unknown Completed University o f Polysaccharide, [facility] ical PPSV23 (PNEUMOVAX) Branch Influenza Virus Unknown Completed Universit y of Vaccine Recomb Quad [facility] IM, Preserv and ABX Branc h Free 18-64 YRS TDAP (ADACEL) Unknown Completed University [facility] TDAP Unknown Completed [facility] Influenza Virus Unknown Completed Universit y of Vaccine Recomb Quad [facility], Preserv and ABX Branc h Free 18-64 YRS SARS-COV-2 COVID-19 Unknown Completed Unive rsity of PFIZER VACCINE [facility] Branch SARS-COV-2 COVID-19 Unknown Completed Unive rsity of PFIZER VACCINE [facility] Branch Pneumococcal Unknown Completed University o f Polysaccharide, [facility] ical PPSV23 (PNEUMOVAX) Branch Pneumococcal Unknown Completed University o f Polysaccharide, [facility] ical PPSV23 (PNEUMOVAX) Branch TDAP Unknown Completed [facility] Meningococcal Unknown Completed University [facility] (groups A, C, Y and Branc h W-135) conjugate vaccine (MCV4P) Heamophilus Unknown Completed [place] of Influenza B [facility] Pneumococcal 13 Unknown Completed Universit y of Conjugate, PCV13 [facility] (Prevnar 13) Branch Meningococcal B, OMV Unknown Com[facility] Influenza Virus Unknown Completed Universit y of Vaccine Quad IM [facility] ical Multi-dose 6+ MO Branch Influenza Virus Unknown Completed Universit y of Vaccine Quad ID [facility] ical 18-64 YRS Branch Influenza Virus Unknown Completed Universit y of Vaccine Quad IM 3+ [facility] YRS Branch Influenza Virus Unknown Completed Universit y of Vaccine [facility] Pneumococcal Unknown Completed University o f Polysaccharide, [facility] ical PPSV23 (PNEUMOVAX) Branch Influenza Virus Unknown Completed Universit y of Vaccine Recomb Quad [facility], Preserv and ABX Branc h Free 18-64 YRS TDAP (ADACEL) Unknown Completed University [facility] TDAP Unknown Completed [facility] Influenza Virus Unknown Completed Universit y of Vaccine Recomb Quad [facility], Preserv and ABX Branc h Free 18-64 YRS Pneumococcal Unknown Completed University o f Polysaccharide, [facility] ical PPSV23 (PNEUMOVAX) Branch Pneumococcal Unknown Completed University o f Polysaccharide, [facility] ical PPSV23 (PNEUMOVAX) Branch TDAP Unknown Completed [facility] Meningococcal Unknown Completed University of Polysaccharide [facility] (groups A, C, Y and Branc h W-135) conjugate vaccine (MCV4P) Heamophilus Unknown Completed University of Influenza B [facility] Pneumococcal 13 Unknown Completed Universit y of Conjugate, PCV13 [facility] dical (Prevnar 13) Branch Meningococcal B, OMV Unknown Completed Univ [facility] Influenza Virus Unknown Completed [facility] Vaccine Quad IM [facility] Multi-dose 6+ MO Branch Influenza Virus Unknown Completed Universit y of Vaccine Quad ID [facility] ical 18-64 YRS Branch Influenza Virus Unknown Completed Universit y of Vaccine Quad IM 3+ [facility] YRS Branch Influenza Virus Unknown Completed Universit y of Vaccine [facility] Pneumococcal Unknown Completed University o f Polysaccharide, [facility] ical PPSV23 (PNEUMOVAX) Branch Influenza Virus Unknown Completed Universit y of Vaccine Recomb [facility], Preserv and ABX Branc h Free 18-64 YRS TDAP (ADACEL) Unknown Completed University of VACCINE [facility] TDAP Unknown Completed [facility] Influenza Virus Unknown Completed Universit y of Vaccine Recomb Quad [facility] IM, Preserv and ABX Branc h Free 18-64 YRS Pneumococcal Unknown Completed University o f Polysaccharide, [facility] ical PPSV23 (PNEUMOVAX) Branch Pneumococcal Unknown Completed University o f Polysaccharide, [facility] ical PPSV23 (PNEUMOVAX) Branch TDAP Unknown Completed [facility] Meningococcal Unknown Completed University Polysaccharide [facility] (groups A, C, Y and Branc h W-135) conjugate vaccine (MCV4P) Heamophilus Unknown Completed University of Influenza B [facility] Pneumococcal 13 Unknown Completed Universit y of Conjugate, PCV13 [facility] dical (Prevnar 13) Branch Meningococcal B, OMV Unknown Completed [facility] Influenza Virus Unknown Completed Universit y of Vaccine Quad IM [facility] ical Multi-dose 6+ MO Branch Influenza Virus Unknown Completed Universit y of Vaccine Quad ID [facility] ical 18-64 YRS Branch Influenza Virus Unknown Completed Universit y of Vaccine Quad IM 3+ [facility] Y[facility] Branch Influenza Virus Unknown Completed Universit y of Vaccine [facility] Pneumococcal Unknown Completed University o f Polysaccharide, [facility] ical PPSV23 (PNEUMOVAX) Branch Influenza Virus Unknown Completed Universit y of Vaccine Recomb Quad [facility] IM, Preserv and ABX Branc h Free 18-64 YRS TDAP (ADACEL) Unknown Completed [facility] TDAP Unknown Completed [facility] Influenza Virus Unknown Completed Universit y of Vaccine Recomb Quad [facility] IM, Preserv and ABX Branc h Free 18-64 YRS Pneumococcal Unknown Completed University o f Polysaccharide, [facility] ical PPSV23 (PNEUMOVAX) Branch Pneumococcal Unknown Completed University o f Polysaccharide, [facility] ical PPSV23 (PNEUMOVAX) Branch TDAP Unknown Completed [facility] Meningococcal Unknown Completed [facility] Polysaccharide [facility] (groups A, C, Y and Branc h W-135) conjugate vaccine (MCV4P) Heamophilus Unknown Completed [facility] Influenza B [facility] Pneumococcal 13 Unknown Completed Universit y of Conjugate, PCV13 [facility] dical (Prevnar 13) Branch Meningococcal B, OMV Unknown Completed [facility] Influenza Virus Unknown Completed Universit y of Vaccine Quad IM [facility] ical Multi-dose 6+ MO Branch Influenza Virus Unknown Completed [facility] y of Vaccine Quad ID [facility] 18-64 YRS Branch Influenza Virus Unknown Completed Universit y of Vaccine Quad IM 3+ [facility] Y[facility] Branch Influenza Virus Unknown Completed Universit y of Vaccine [facility] Pneumococcal Unknown Completed University o f Polysaccharide, [facility] ical PPSV23 (PNEUMOVAX) Branch Influenza Virus Unknown Completed Universit y of Vaccine Recomb Quad [facility] IM, Preserv and ABX Branc h Free 18-64 YRS TDAP (ADACEL) Unknown Completed [facility] TDAP Unknown Completed [facility] Influenza Virus Unknown Completed Universit y of Vaccine Recomb Quad [facility] IM, Preserv and ABX Branc h Free 18-64 YRS Pneumococcal Unknown Completed University o f Polysaccharide, [facility] ical PPSV23 (PNEUMOVAX) Branch Pneumococcal Unknown Completed University o f Polysaccharide, [facility] ical PPSV23 (PNEUMOVAX) Branch TDAP Unknown Completed [facility] Meningococcal Unknown Completed [facility] Polysaccharide [facility] (groups A, C, Y and Branc h W-135) conjugate vaccine (MCV4P) Heamophilus Unknown Completed [facility] Influenza B [facility] Pneumococcal 13 Unknown Completed Universit y of Conjugate, PCV13 [facility] dical (Prevnar 13) Branch Meningococcal B, OMV Unknown Completed [facility] Influenza Virus Unknown Completed Universit y of Vaccine Quad IM [facility] ical Multi-dose 6+ MO Branch Influenza Virus Unknown Completed Universit y of Vaccine Quad ID [facility] ical 18-64 YRS Branch Influenza Virus Unknown Completed Universit y of Vaccine Quad IM 3+ [facility] Y[facility] Branch Influenza Virus Unknown Completed Universit y of Vaccine [facility] Pneumococcal Unknown Completed University o f Polysaccharide, [facility] ical PPSV23 (PNEUMOVAX) Branch Influenza Virus Unknown Completed Universit y of Vaccine Recomb Quad [facility] IM, Preserv and ABX Branc h Free 18-64 YRS TDAP (ADACEL) Unknown Completed [facility] TDAP Unknown Completed [facility] Influenza Virus Unknown Completed Universit y of Vaccine Recomb Quad [facility], Preserv and ABX Branc h Free 18-64 YRS Pneumococcal Unknown Completed University o f Polysaccharide, [facility] ical PPSV23 (PNEUMOVAX) Branch Pneumococcal Unknown Completed University o f Polysaccharide, [facility] ical PPSV23 (PNEUMOVAX) Branch TDAP Unknown Completed [facility] Meningococcal Unknown Completed [facility] (groups A, C, Y and Branc h W-135) conjugate vaccine (MCV4P) Heamophilus Unknown Completed [facility] Influenza B [facility] Pneumococcal 13 Unknown Completed Universit y of Conjugate, PCV13 [facility] (Prevnar 13) Branch Meningococcal B, OMV Unknown Completed [facility] Influenza Virus Unknown Completed Universit y of Vaccine Quad IM [facility] ical Multi-dose 6+ MO Branch Influenza Virus Unknown Completed Universit y of Vaccine Quad ID [facility] ical 18-64 YRS Branch Influenza Virus Unknown Completed Universit y of Vaccine Quad IM 3+ [facility] YRS Branch Influenza Virus Unknown Completed Universit y of Vaccine [facility] Pneumococcal Unknown Completed University o f Polysaccharide, [facility] ical PPSV23 (PNEUMOVAX) Branch Influenza Virus Unknown Completed Universit y of Vaccine Recomb Quad [facility], Preserv and ABX Branc h Free 18-64 YRS TDAP (ADACEL) Unknown Completed University [facility] TDAP Unknown Completed [facility] Influenza Virus Unknown Completed Universit y of Vaccine Recomb Quad [facility], Preserv and ABX Branc h Free 18-64 YRS Pneumococcal Unknown Completed University o f Polysaccharide, [facility] ical PPSV23 (PNEUMOVAX) Branch Pneumococcal Unknown Completed University o f Polysaccharide, [facility] ical PPSV23 (PNEUMOVAX) Branch TDAP Unknown Completed [facility] Meningococcal Unknown Completed [facility] Polysaccharide [facility] (groups A, C, Y and Branc h W-135) conjugate vaccine (MCV4P) Heamophilus Unknown Completed [place] of Influenza B [facility] Pneumococcal 13 Unknown Completed Universit y of Conjugate, PCV13 [facility] dical (Prevnar 13) Branch Meningococcal B, OMV Unknown Completed [facility] Influenza Virus Unknown Completed [facility] y of Vaccine Quad IM [facility] Multi-dose 6+ MO Branch Influenza Virus Unknown Completed Universit y of Vaccine Quad ID [facility] ical 18-64 YRS Branch Influenza Virus Unknown Completed Universit y of Vaccine Quad IM 3+ [facility] Y[facility] Branch Influenza Virus Unknown Completed Universit y of Vaccine [facility] Pneumococcal Unknown Completed University o f Polysaccharide, [place] [facility] ical PPSV23 (PNEUMOVAX) Branch Influenza Virus Unknown Completed Universit y of Vaccine Recomb Quad [facility] IM, Preserv and ABX Branc h Free 18-64 YRS TDAP (ADACEL) Unknown Completed University of VACCINE [facility] TDAP Unknown Completed [facility] Influenza Virus Unknown Completed Universit y of Vaccine Recomb Quad [facility] IM, Preserv and ABX Branc h Free 18-64 YRS Pneumococcal Unknown Completed University o f Polysaccharide, [facility] ical PPSV23 (PNEUMOVAX) Branch Pneumococcal Unknown Completed University o f Polysaccharide, [facility] ical PPSV23 (PNEUMOVAX) Branch TDAP Unknown Completed [facility] Meningococcal Unknown Completed [place] of Polysaccharide [facility] (groups A, C, Y and Branc h W-135) conjugate vaccine (MCV4P) Heamophilus Unknown Completed University of Influenza B [facility] Pneumococcal 13 Unknown Completed Universit y of Conjugate, PCV13 [facility] dical (Prevnar 13) Branch Meningococcal B, OMV Unknown Completed [facility] Influenza Virus Unknown Completed Universit y of Vaccine Quad IM [facility] Multi-dose 6+ MO Branch Influenza Virus Unknown Completed Universit y of Vaccine Quad ID [facility] ical 18-64 YRS Branch Influenza Virus Unknown Completed Universit y of Vaccine Quad IM 3+ [facility] YRS Branch Influenza Virus Unknown Completed Universit y of Vaccine [facility] Pneumococcal Unknown Completed University o f Polysaccharide, [facility] ical PPSV23 (PNEUMOVAX) Branch Influenza Virus Unknown Completed Universit y of Vaccine Recomb Quad [facility] IM, Preserv and ABX Branc h Free 18-64 YRS TDAP (ADACEL) Unknown Completed [facility] TDAP Unknown Completed [facility] Influenza Virus Unknown Completed Universit y of Vaccine Recomb Quad [facility] IM, Preserv and ABX Branc h Free 18-64 YRS Pneumococcal Unknown Completed [place] o [facility] ica PPSV23 (PNEUMOVAX) Chromo Vital Signs Vital Name Observation Time Observation Value Comments Source Systolic blood 2023-03-07 16:47:00 132 mm[Hg] Univer sity of pressure [facility] Diastolic blood 2023-03-07 16:47:00 66 mm[Hg] Unive rsity of [facility] Heart rate 2023-03-07 16:47:00 103 /min [facility] Body temperature 2023-03-07 16:47:00 36.06 [facility] Respiratory rate 2023-03-07 16:47:00 18 /min [facility] Oxygen saturation in 2023-03-07 16:47:00 98 /min [place] of Arterial blood by [facility] Pulse oximetry Branch Systolic blood 2023-02-22 13:12:00 106 mm[Hg] Univer sity of [facility] Diastolic blood 2023-02-22 13:12:00 73 mm[Hg] Unive rsity of [facility] Heart rate 2023-02-22 13:12:00 96 /min [facility] Body temperature 2023-02-22 13:12:00 36.28 [facility] Respiratory rate 2023-02-22 13:12:00 16 /min [facility] Oxygen saturation in 2023-02-22 13:12:00 99 /min University of Arterial blood by [place] [facility] Pulse oximetry Branch Body height 2023-02-17 07:20:00 162.6 cm [facility] Body weight 2023-02-17 07:20:00 73 kg [facility] BMI 2023-02-17 07:20:00 27.62 kg/m2 [facility] Height 2023-02-06 17:35:00 157.48 CM Weight 2023-02-06 17:35:00 74.84 KG WEIGHT 2023-02-04 05:50:00 88.9 kg WEIGHT 2023-02-02 06:00:00 87.1 kg WEIGHT 2023-01-31 04:41:00 87.4 kg WEIGHT 2023-01-28 06:00:00 91.1 kg WEIGHT 2023-01-23 04:47:00 96.1 kg WEIGHT 2023-01-22 18:45:00 98.8 kg WEIGHT 2023-01-22 15:05:00 102.2 kg WEIGHT 2023-01-20 22:55:00 93.7 kg WEIGHT 2023-01-19 06:10:00 94.7 kg WEIGHT 2023-01-18 18:10:00 95.4 kg WEIGHT 2023-01-18 04:05:00 97.387 kg WEIGHT 2023-01-16 06:00:00 103 kg WEIGHT 2023-01-15 17:24:00 100.5 kg WEIGHT 2023-01-15 05:50:00 103.5 kg WEIGHT 2023-01-13 22:47:00 92.4 kg WEIGHT 2023-01-12 06:00:00 94.9 kg WEIGHT 2023-01-11 06:00:00 97.6 kg WEIGHT 2023-01-10 16:27:00 102.8 kg WEIGHT 2023-01-10 12:51:00 103.3 kg WEIGHT 2023-01-07 06:00:00 103.3 kg WEIGHT 2023-01-06 06:00:00 105.6 kg WEIGHT 2023-01-05 19:30:00 108.6 kg WEIGHT 2023-01-04 05:40:00 108.6 kg WEIGHT 2023-01-01 06:00:00 106.5 kg WEIGHT 2022-12-31 11:00:00 105.7 kg WEIGHT 2022-12-31 08:45:00 107 kg WEIGHT 2022-12-31 04:33:00 107.548 kg WEIGHT 2022-12-30 05:45:00 108.364 kg WEIGHT 2022-12-30 05:00:00 103.3 kg WEIGHT 2022-12-29 23:30:00 97.6 kg WEIGHT 2022-12-29 05:50:00 99.2 kg WEIGHT 2022-12-28 06:00:00 99.7 kg WEIGHT 2022-12-26 16:00:00 96.8 kg WEIGHT 2022-12-26 06:00:00 96.8 kg WEIGHT 2022-12-25 09:10:00 103.1 kg WEIGHT 2022-12-25 07:46:00 103.1 kg WEIGHT 2022-12-24 05:00:00 103.1 kg WEIGHT 2022-12-23 05:00:00 104.6 kg WEIGHT 2022-12-22 05:44:00 102 kg WEIGHT 2022-12-21 06:00:00 102.7 kg WEIGHT 2022-12-20 05:00:00 103.3 kg WEIGHT 2022-12-19 05:45:00 104 kg WEIGHT 2022-12-18 06:00:00 102.8 kg WEIGHT 2022-12-17 06:00:00 102.2 kg HEIGHT 2022-12-17 00:00:00 157.5 cm WEIGHT 2022-12-17 00:00:00 101.424 kg WEIGHT 2023-02-04 05:50:00 88.9 kg WEIGHT 2023-02-02 06:00:00 87.1 kg WEIGHT 2023-01-31 04:41:00 87.4 kg WEIGHT 2023-01-28 06:00:00 91.1 kg WEIGHT 2023-01-23 04:47:00 96.1 kg WEIGHT 2023-01-22 18:45:00 98.8 kg WEIGHT 2023-01-22 15:05:00 102.2 kg WEIGHT 2023-01-20 22:55:00 93.7 kg WEIGHT 2023-01-19 06:10:00 94.7 kg WEIGHT 2023-01-18 18:10:00 95.4 kg WEIGHT 2023-01-18 04:05:00 97.387 kg WEIGHT 2023-01-16 06:00:00 103 kg WEIGHT 2023-01-15 17:24:00 100.5 kg WEIGHT 2023-01-15 05:50:00 103.5 kg WEIGHT 2023-01-13 22:47:00 92.4 kg WEIGHT 2023-01-12 06:00:00 94.9 kg WEIGHT 2023-01-11 06:00:00 97.6 kg WEIGHT 2023-01-10 16:27:00 102.8 kg WEIGHT 2023-01-10 12:51:00 103.3 kg WEIGHT 2023-01-07 06:00:00 103.3 kg WEIGHT 2023-01-06 06:00:00 105.6 kg WEIGHT 2023-01-05 19:30:00 108.6 kg WEIGHT 2023-01-04 05:40:00 108.6 kg WEIGHT 2023-01-01 06:00:00 106.5 kg WEIGHT 2022-12-31 11:00:00 105.7 kg WEIGHT 2022-12-31 08:45:00 107 kg WEIGHT 2022-12-31 04:33:00 107.548 kg WEIGHT 2022-12-30 05:45:00 108.364 kg WEIGHT 2022-12-30 05:00:00 103.3 kg WEIGHT 2022-12-29 23:30:00 97.6 kg WEIGHT 2022-12-29 05:50:00 99.2 kg WEIGHT 2022-12-28 06:00:00 99.7 kg WEIGHT 2022-12-26 16:00:00 96.8 kg WEIGHT 2022-12-26 06:00:00 96.8 kg WEIGHT 2022-12-25 09:10:00 103.1 kg WEIGHT 2022-12-25 07:46:00 103.1 kg WEIGHT 2022-12-24 05:00:00 103.1 kg WEIGHT 2022-12-23 05:00:00 104.6 kg WEIGHT 2022-12-22 05:44:00 102 kg WEIGHT 2022-12-21 06:00:00 102.7 kg WEIGHT 2022-12-20 05:00:00 103.3 kg WEIGHT 2022-12-19 05:45:00 104 kg WEIGHT 2022-12-18 06:00:00 102.8 kg WEIGHT 2022-12-17 06:00:00 102.2 kg HEIGHT 2022-12-17 00:00:00 157.5 cm WEIGHT 2022-12-17 00:00:00 101.424 kg Systolic blood 2022-11-18 14:42:00 123 mm[Hg] [facility] Diastolic blood 2022-11-18 14:42:00 82 mm[Hg] Unive rsity of [facility] Heart rate 2022-11-18 14:42:00 109 /min Universi ty of [facility] Body temperature 2022-11-18 14:42:00 36.72 Melissa Univ ersity of [facility] Respiratory rate 2022-11-18 14:42:00 18 /min Univ ersity of [facility] Body height 2022-11-18 14:42:00 162.6 cm [facility] Body weight 2022-11-18 14:42:00 97.523 kg [facility] BMI 2022-11-18 14:42:00 36.90 kg/m2 Universi ty of [facility] Heart rate 2022-10-29 21:30:00 91 /min Universi ty of [facility] Respiratory rate 2022-10-29 21:30:00 14 /min Univ ersity of [facility] Oxygen saturation in 2022-10-29 21:30:00 98 /min University of Arterial blood by [facility] Pulse oximetry Branch Systolic blood 2022-10-29 20:21:00 125 mm[Hg] Univer sity of pressure [facility] Diastolic blood 2022-10-29 20:21:00 79 mm[Hg] Unive rsity of [facility] Body temperature 2022-10-29 20:21:00 36.89 Melissa Univ ersity of [facility] Body height 2022-10-29 20:21:00 157.5 cm [facility] Body weight 2022-10-29 20:21:00 94.348 kg [facility] BMI 2022-10-29 20:21:00 38.04 kg/m2 [facility] Systolic blood 2022-10-27 15:21:00 91 mm[Hg] Univer sity of [facility] Diastolic blood 2022-10-27 15:21:00 58 mm[Hg] Unive rsity of pressure [facility] Heart rate 2022-10-27 15:21:00 82 /min [facility] Body height 2022-10-27 15:21:00 157.5 cm [facility] Body weight 2022-10-27 15:21:00 94.394 kg [facility] BMI 2022-10-27 15:21:00 38.06 kg/m2 [facility] Oxygen saturation in 2022-10-27 15:21:00 95 /min University of Arterial blood by [facility] Pulse oximetry Branch HEIGHT 2022-10-22 05:49:00 157.5 cm WEIGHT 2022-10-22 05:49:00 96.48 kg HEIGHT 2022-10-22 05:49:00 157.5 cm WEIGHT 2022-10-22 05:49:00 96.48 kg Systolic blood 2022-10-19 21:30:00 148 mm[Hg] Univer sity of [facility] Diastolic blood 2022-10-19 21:30:00 89 mm[Hg] Unive rsity of [facility] Heart rate 2022-10-19 21:30:00 115 /min [facility] Body temperature 2022-10-19 21:30:00 37.17 Melissa Univ ers[facility] Respiratory rate 2022-10-19 21:30:00 16 /min Univ ersity of [facility] Oxygen saturation in 2022-10-19 21:30:00 97 /min University of Arterial blood by [facility] Pulse oximetry Branch Body height 2022-10-19 04:03:00 [...] 2022-10-18 16:13:00 82 /min [facility] Body height 2022-10-18 16:13:00 157.5 cm [facility] Body weight 2022-10-18 16:13:00 98.884 kg [facility] BMI 2022-10-18 16:13:00 39.87 kg/m2 [facility] Oxygen saturation in 2022-10-18 16:13:00 99 /min University of Arterial blood by [facility] Pulse oximetry Branch Systolic blood 2022-10-15 16:05:00 97 mm[Hg] Univer sity of [facility] Diastolic blood 2022-10-15 16:05:00 62 mm[Hg] Unive rsity of [facility] Heart rate 2022-10-15 16:05:00 98 /min [facility] Body temperature 2022-10-15 16:05:00 36.33 Melissa Univ ers[facility] Respiratory rate 2022-10-15 16:05:00 16 /min Univ ersity of [facility] Body height 2022-10-15 16:05:00 157.5 cm [facility] Body weight 2022-10-15 16:05:00 99.791 kg [facility] BMI 2022-10-15 16:05:00 40.24 kg/m2 [facility] Oxygen saturation in 2022-10-15 16:05:00 98 /min University of Arterial blood by [facility] Pulse oximetry Branch Systolic blood 2022-10-07 19:00:00 [...] University of Arterial blood by [facility] Pulse oximetry Branch Body temperature 2022-10-07 17:09:00 37.28 Melissa Univ ersity of [facility] Body height 2022-10-07 17:09:00 157.5 cm [facility] Body weight 2022-10-07 17:09:00 102.059 kg [facility] BMI 2022-10-07 17:09:00 41.15 kg/m2 [facility] Systolic blood 2022-10-07 14:03:00 119 [...] 2022-10-07 14:03:00 41.28 kg/m2 [facility] Oxygen saturation in 2022-10-07 14:03:00 100 /min [facility] Systolic blood 2022-09-03 17:29:00 97 mm[Hg] Univer sity of [facility] Diastolic blood 2022-09-03 17:29:00 64 mm[Hg] Unive rsity of [facility] Heart rate 2022-09-03 17:29:00 95 /min [facility] Body temperature 2022-09-03 17:29:00 37.17 Melissa Univ [facility] Body height 2022-09-03 17:29:00 157.5 cm [facility] Body weight 2022-09-03 17:29:00 101.606 kg [facility] BMI 2022-09-03 17:29:00 40.97 kg/m2 [facility] Oxygen saturation in 2022-09-03 17:29:00 96 /min [facility] [place] [facility] Systolic blood 2022-08-24 14:41:00 115 mm[Hg] Univer sity of [facility] Diastolic blood 2022-08-24 14:41:00 77 [...] 2022-07-27 13:03:00 102.967 kg [facility] BMI 2022-07-27 13:03:00 41.52 kg/m2 [facility] Oxygen saturation in 2022-07-27 13:03:00 94 /min University of Arterial blood by [facility] Pulse oximetry Branch Systolic blood 2022-06-17 15:45:00 104 mm[Hg] Univer sity of [facility] Diastolic blood 2022-06-17 15:45:00 69 mm[Hg] Unive rsity of [facility] Heart rate 2022-06-17 15:45:00 97 /min [facility] Body height 2022-06-17 15:45:00 157.5 cm [facility] Body weight 2022-06-17 15:45:00 101.878 kg [facility] BMI 2022-06-17 15:45:00 41.08 kg/m2 [facility] Oxygen saturation in 2022-06-17 15:45:00 98 /min University of Arterial blood by [facility] Pulse oximetry Branch Systolic blood 2022-06-15 [...] 2022-03-27 12:44:00 157.5 cm [facility] Body weight 2022-03-27 12:44:00 96.616 kg [facility] BMI 2022-03-27 12:44:00 38.96 kg/m2 [facility] Oxygen saturation in 2022-03-27 12:44:00 98 /min [facility] [place] blood by [place] [facility] Pulse oximetry Branch Systolic blood 2022-03-02 [...] /min [facility] [place] blood by [place] [facility] Pulse oximetry Branch Body temperature 2022-03-02 15:23:00 36.28 Melissa Univ [facility] Body weight 2022-02-24 17:00:00 100.245 kg [facility] BMI 2022-02-24 17:00:00 40.42 kg/m2 [facility] Systolic blood 2022-03-02 15:25:00 98 mm[Hg] Univer sity of pressure [facility] Diastolic blood 2022-03-02 15:25:00 55 mm[Hg] Unive rsity of [facility] Heart rate 2022-03-02 15:25:00 85 /min [facility] Respiratory rate 2022-03-02 15:25:00 18 /min [facility] O[facility] saturation in 2022-03-02 15:25:00 100 /min University Arterial blood by [facility] Pulse oximetry Branch Body temperature 2022-03-02 15:23:00 36.28 Melissa [facility] Body weight 2022-02-24 17:00:00 100.245 kg [facility] BMI 2022-02-24 17:00:00 40.42 kg/m2 [facility] Systolic blood 2023-02-07 08:35:00 115 mm[Hg] [facility] Diastolic blood 2023-02-07 08:35:00 70 mm[Hg] [facility] Body temperature 2023-02-07 08:35:00 36.56 Melissa [facility] Respiratory rate 2023-02-07 08:35:00 18 /min [facility] Oxygen saturation in 2023-02-07 08:35:00 96 /min [facility] Arterial blood by Medical nter Pulse oximetry Heart rate 2023-02-07 08:11:00 98 /min [facility] Body weight 2023-02-04 05:50:00 88.9 kg [facility] BMI 2023-02-04 05:50:00 35.85 kg/m2 [facility] Body height 2022-12-25 11:49:00 157.5 cm [facility] Heart rate 2022-10-25 10:57:00 92 /min [facility] Body temperature 2022-10-25 10:57:00 35.61 Melissa [facility] Respiratory rate 2022-10-25 10:57:00 18 /min [facility] Oxygen saturation in 2022-10-25 10:57:00 100 /min [facility] Arterial blood by Medical Ce nter Pulse oximetry Systolic blood 2022-10-25 10:57:00 120 mm[Hg] [facility] Diastolic blood 2022-10-25 10:57:00 63 mm[Hg] [facility] Body height 2022-10-22 05:49:00 157.5 cm [facility] Body weight 2022-10-22 05:49:00 96.48 kg [facility] BMI 2022-10-22 05:49:00 38.90 kg/m2 [facility] Procedures Procedure Date / Time Performing Source Performed Clinician [id number] 2023-03-11 [facility] [place] 00:00:00 [facility] EXTERNAL PROVIDER RECORDS 2023-03-10 Doctor Univer sity of 05:01:00 Unassigned, No [facility] [id number] 2023-03-09 PER [facility] [place] 00:00:00 [facility] EXTERNAL PROVIDER RECORDS 2023-02-28 Doctor Univer sity of 05:01:00 Unassigned, No [facility] CBC WITH DIFF 2023-02-21 [facility] 16:[facility] [facility] MAGNESIUM 2023-02-21 [facility] of 16:24:[address] [facility] BASIC METABOLIC PANEL (NA, K, CL, 2023-02-21 [facility] of CO2, GLUCOSE, BUN, CREATININE, CA) 16:24:[address] [facility] CBC WITH DIFF 2023-02-19 Kristina Richardson [facility] of 10:26:[address] [facility] PREPARE PACKED RBC 2023-02-18 Tona, [facility] of 22:52:[address] [facility] HB ABO GROUPING 2023-02-18 Juan M Lobito [place] of 19:02:[address] [facility] CBC WITH DIFF 2023-02-18 Juan M [facility] of 15:04:[address] [facility] NEGIN AURIS CULTURE 2023-02-18 Juan M [facility] of 15:00:[address] [facility] NEGIN AURIS SURVEILLANCE BY PCR 2023-02-18 [facility] of (INFECTION CONTROL PURPOSES) 15:00:00 [facility] TROPONIN I 2023-02-18 Tona, [facility] of 06:03:[address] [facility] BASIC METABOLIC PANEL (NA, K, CL, 2023-02-18 [facility] of CO2, GLUCOSE, BUN, CREATININE, CA) 06:03:[address] [facility] CBC WITH DIFF 2023-02-18 [facility] of 06:03:[address] [facility] CT THORAX WO CONTRAST 2023-02-17 [facility] of 20:48:[address] [facility] TROPONIN I 2023-02-17 [facility] of 20:11:[address] [facility] TRANSTHORACIC ECHO (TTE) COMPLETE 2023-02-17 Tona, [facility] of 16:05:[address] [facility] TROPONIN I 2023-02-17 [facility] of 10:38:[address] [facility] OSMOLALITY, SERUM OR PLASMA 2023-02-17 [facility], [facility] ersity of 05:42:[address] [facility] BASIC METABOLIC PANEL (NA, K, CL, 2023-02-17 [facility] of CO2, GLUCOSE, BUN, CREATININE, CA) 05:42:[address] [facility] EKG-12 LEAD 2023-02-17 [facility] of 05:39:[address] [facility] OSMOLALITY URINE 2023-02-17 [facility] [place] of 05:05:[address] [facility] URINALYSIS 2023-02-17 [facility] [place] of 05:05:[address] [facility] CREATININE, URINE RANDOM 2023-02-17 [facility], [facility] of 05:05:[address] [facility] SODIUM, URINE RANDOM 2023-02-17 [facility], [facility] [place] of 05:05:[address] [facility] LIPASE 2023-02-17 [facility], [facility] [place] of 03:26:[address] [facility] TROPONIN I 2023-02-17 [facility], [facility] [place] of 03:26:[address] [facility] HEPATIC FUNCTION PANEL (40217) 2023-02-17 [facility], Amir [facility] of (ALB,T.PRO,BILI 03:26:00 [facility] T,BU/BC,ALT,AST,[facility] BASIC METABOLIC PANEL (NA, K, CL, 2023-02-17 [facility], [facility] of CO2, GLUCOSE, BUN, CREATININE, CA) 03:26:[address] [facility] CBC WITH DIFF 2023-02-17 [facility] of 03:26:[address] [facility] D-DIMER 2023-02-17 [facility] of 03:26:[address] [facility] N-TERMINAL PRO-BNP 2023-02-17 [facility], [facility] of 03:26:[address] [facility] XR CHEST 1 VW 2023-02-17 [facility] of 03:09:[address] [facility] COMPREHENSIVE METABOLIC PANEL 2023-02-07 Kristi[facility]Hadley[facility] 04:38:00 [facility] MAGNESIUM 2023-02-07 Jimmieey-Ittmann, [facility] 04:38:00 [facility] CBC W/PLT COUNT & AUTO 2023-02-07 Jimmieey-Ittmann, [facility] DIFFERENTIAL 04:38:00 [facility] PT/APTT 2023-02-07 Jimmieey-Ittmann, [facility] 04:38:00 [facility] PHOSPHORUS 2023-02-07 Murrey-Ittmann, [facility] 04:38:00 [facility] LACTIC ACID, VENOUS 2023-02-07 Jimmieey-Ittmann, [facility] 04:38:00 [facility] CBC W/PLT COUNT & AUTO 2023-02-07 Jimmieey-Ittmann, [facility] DIFFERENTIAL 04:38:[address] [facility] [address] ABDOMEN/PELVIS WITHOUT IV 2023-02-07 Kristi-Ittmann, [facility] CONTRAST 03:15:00 [facility] POCT-GLUCOSE METER 2023-02-[address] [facility] 11:33:00 [facility] POCT-GLUCOSE METER 2023-02-[address] [facility] 07:52:00 [facility] PT/APTT 2023-02-[address] [facility] 05:49:00 [facility] MAGNESIUM 2023-02-[address] [facility] 05:49:00 [facility] PHOSPHORUS 2023-02-[address] [facility] 05:49:00 [facility] COMPREHENSIVE METABOLIC PANEL 2023-02-04 Dajuan, [facility]ka [facility] 05:49:00 [facility] LACTATE DEHYDROGENASE (LDH) 2023-02-04 Health System, Carlos [facility] 05:49:00 [facility] HAPTOGLOBIN 2023-02-04 Sean, Carlos [facility] 05:49:00 [facility] CBC W/PLT COUNT & AUTO 2023-02-04 Health System, Carlos [facility] DIFFERENTIAL 05:49:00 [facility] CBC W/PLT COUNT & AUTO 2023-02-04 Health System, Carlos [facility] DIFFERENTIAL 05:49:00 [facility] PREPARE LEUKO-REDUCED RBC 2023-02-03 Pending [facility] To [facility], Nejmudin [facility] 23:54:00 [facility] POCT-GLUCOSE METER 2023-02-03 Pending [facility] To [facility], Nejmudin [facility] 20:55:00 [facility] POCT-GLUCOSE METER 2023-02-03 Pending [facility] To [facility], Nejmudin [facility] 16:40:00 [facility] POCT-GLUCOSE METER 2023-02-03 Pending [facility] To [facility], Nejmudin [facility] 11:39:00 [facility] POCT-GLUCOSE METER 2023-02-03 Pending [facility] To [facility], Nejmudin [facility] 09:17:00 [facility] PT/APTT 2023-02-[address] [place] [address] [facility] 05:26:00 [facility] MAGNESIUM 2023-02-03 [place], Anushka [facility] 05:26:00 [facility] PHOSPHORUS 2023-02-03 [place], Anushka [facility] 05:26:00 [facility] COMPREHENSIVE METABOLIC PANEL 2023-02-03 Dajuan, [facility] 05:26:00 [facility] LACTATE DEHYDROGENASE (LDH) 2023-02-03 Health System, Carlos [facility] 05:26:00 [facility] HAPTOGLOBIN 2023-02-03 Health System, Carlos [facility] 05:26:00 [facility] CBC W/PLT COUNT & AUTO 2023-02-03 Sean, Carlos [facility] DIFFERENTIAL 05:26:00 [facility] CBC W/PLT COUNT & AUTO 2023-02-03 Sean, Carlos [facility] DIFFERENTIAL 05:26:00 [facility] POCT-GLUCOSE METER 2023-02-02 Summer, Lazaro [facility] 20:23:00 [facility] POCT-GLUCOSE METER 2023-02-02 Summer, Nemanoj [facility] 16:21:00 [facility] TRANSFUSE LEUKO-REDUCED RED BLOOD 2023-02-02 Pending Sale To [facility], Arben n [facility] CELLS 16:10:00 [facility] ANTIBODY IDENTIFICATION 2023-02-02 Summer, Lazaro [facility] 15:43:00 [facility] TYPE AND SCREEN, AUTOMATED 2023-02-02 Summer, [facility]aro [facility] 12:49:00 [facility] POCT-GLUCOSE METER 2023-02-02 Pending Sale To [facility], Nemanoj [facility] 12:08:00 [facility] POCT-GLUCOSE METER 2023-02-02 Pending Sale To [facility], Nesimadin [facility] 08:06:00 [facility] PT/APTT 2023-02-[address] [place] [address] [facility] 05:55:00 [facility] MAGNESIUM 2023-02-[address] [facility] 05:55:00 [facility] PHOSPHORUS 2023-02-[address] [facility] 05:55:00 [facility] COMPREHENSIVE METABOLIC PANEL 2023-02-02 Dajuan, [facility] 05:55:00 [facility] LACTATE DEHYDROGENASE (LDH) 2023-02-02 Health System, Carlos [facility] 05:55:00 [facility] HAPTOGLOBIN 2023-02-02 Sean, Carlos [facility] 05:55:00 [facility] CBC W/PLT COUNT & AUTO 2023-02-02 Sean, Carlos [facility] DIFFERENTIAL 05:55:00 [facility] CBC W/PLT COUNT & AUTO 2023-02-02 Health System, [facility] DIFFERENTIAL 05:55:00 [facility] POCT-GLUCOSE METER 2023-02-01Sean, Carlos [facility] 21:04:00 [facility] POCT-GLUCOSE METER 2023-02-01Sean, Carlos [facility] 17:17:00 [facility] POCT-GLUCOSE METER 2023-02-01Sean, Carlos [facility] 11:52:00 [facility] POCT-GLUCOSE METER 2023-02-01 Health System, Carlos [facility] 08:04:00 [facility] PT/APTT 2023-02-01 [place], Anushka [facility] 06:03:00 [facility] MAGNESIUM 2023-02-01 [place], Anushka [facility] 06:03:00 [facility] PHOSPHORUS 2023-02-01 [place], Anushka [facility] 06:03:00 [facility] COMPREHENSIVE METABOLIC PANEL 2023-02-01 West, [facility]ushka [facility] 06:03:00 [facility] LACTATE DEHYDROGENASE (LDH) 2023-02-01 Health System, Carlos [facility] 06:03:00 [facility] HAPTOGLOBIN 2023-02-01 Health System, Carlos [facility] 06:03:00 [facility] CBC W/PLT COUNT & AUTO 2023-02-01 Health System, [facility] DIFFERENTIAL 06:03:00 [facility] CBC W/PLT COUNT & AUTO 2023-02-01 Health System, Carlos [facility] DIFFERENTIAL 06:03:00 [facility] POCT-GLUCOSE METER 2023-01-31 Health System, Carlos [facility] 21:12:00 [facility] POCT-GLUCOSE METER 2023-01-31 [facility] System, Carlos [facility] 15:33:00 [facility] IR TUNNELED CATHETER REMOVAL 2023-01-[address] [facility] 13:35:00 [facility] POCT-GLUCOSE METER 2023-01-31 Health System, Carlos [facility] 11:18:00 [facility] POCT-GLUCOSE METER 2023-01-31 [facility] System, Carlos [facility] 07:39:00 [facility] PT/APTT 2023-01-31 West, Anushka [facility] 04:45:00 [facility] MAGNESIUM 2023-01-31 [place], Anushka [facility] 04:45:00 [facility] PHOSPHORUS 2023-01-31 [place], Anushka [facility] 04:45:00 [facility] COMPREHENSIVE METABOLIC PANEL 2023-01-31 [place], [facility]ushka [facility] 04:45:00 [facility] LACTATE DEHYDROGENASE (LDH) 2023-01-31 Health System, Carlos [facility] 04:45:00 [facility] HAPTOGLOBIN 2023-01-31 Health System, Carlos [facility] 04:45:00 [facility] CBC W/PLT COUNT & AUTO 2023-01-31 [facility] System[facility] DIFFERENTIAL 04:45:00 [facility] RETICULOCYTE COUNT 2023-01-31 Brand, [facility]i [facility] 04:45:00 [facility] CBC W/PLT COUNT & AUTO 2023-01-31 Health System, Carlos [facility] DIFFERENTIAL 04:45:00 [facility] POCT-GLUCOSE METER 2023-01-30 [facility] System, Carlos [facility] 21:31:00 [facility] POCT-GLUCOSE METER 2023-01-30 Health System, Carlos [facility] 15:50:00 [facility] POCT-GLUCOSE METER 2023-01-30 [facility] System, Carlos [facility] 11:20:00 [facility] POCT-GLUCOSE METER 2023-01-30 [facility] System, Carlos [facility] 07:31:00 [facility] PT/APTT 2023-01-30 West, Anushka [facility] 04:52:00 [facility] MAGNESIUM 2023-01-30 West, Anushka [facility] 04:52:00 [facility] PHOSPHORUS 2023-01-30 West, Anushka [facility] 04:52:00 [facility] COMPREHENSIVE METABOLIC PANEL 2023-01-30 West, Anushka [facility] 04:52:00 [facility] LACTATE DEHYDROGENASE (LDH) 2023-01-30 Health System, Carlos [facility] 04:52:00 [facility] HAPTOGLOBIN 2023-01-30 Health System, Carlos [facility] 04:52:00 [facility] CBC W/PLT COUNT & AUTO 2023-01-30Sean, Carlos [facility] DIFFERENTIAL 04:52:00 [facility] CBC W/PLT COUNT & AUTO 2023-01-30 Health System, [facility] DIFFERENTIAL 04:52:00 [facility] (CELLAVISION MANUAL DIFF) 2023-01-30 [facility], Carlos [facility] 04:52:00 [facility] POCT-GLUCOSE METER 2023-01-29 [facility] System, [facility] 21:01:00 [facility] [facility] POCT-GLUCOSE METER 2023-01-29 Health System, Carlos [facility] 16:16:00 [facility] POCT-GLUCOSE METER 2023-01-29 Health System, Carlos [facility] 11:59:00 [facility] POCT-GLUCOSE METER 2023-01-29 Health System, Carlos [facility] 07:37:00 [facility] PT/APTT 2023-01-29 [place], Anushka [facility] 05:38:00 [facility] MAGNESIUM 2023-01-29 [place], Anushka [facility] 05:38:00 [facility] PHOSPHORUS 2023-01-29 West, Anushka [facility] 05:38:00 [facility] COMPREHENSIVE METABOLIC PANEL 2023-01-29 [facility], [facility] 05:38:00 [facility] LACTATE DEHYDROGENASE (LDH) 2023-01-29 Health System, Carlos [facility] 05:38:00 [facility] HAPTOGLOBIN 2023-01-29 Health System, Carlos [facility] 05:38:00 [facility] CBC W/PLT COUNT & AUTO 2023-01-29 [facility] 05:38:00 [facility] CALCIUM, IONIZED 2023-01-29 Richardson, Rustam [facility] 05:38:00 [facility] CBC W/PLT COUNT & AUTO 2023-01-29 Sean, Carlos [facility] DIFFERENTIAL 05:38:00 [facility] (CELLAVISION MANUAL DIFF) 2023-01-29 Health System, Carlos [facility] 05:38:00 [facility] POCT-GLUCOSE METER 2023-01-28 Health System, Carlos [facility] 21:48:00 [facility] POCT-GLUCOSE METER 2023-01-28 Health System, Carlos [facility] 15:42:00 [facility] SARS-COV2/RT-PCR ([facility]) 2023-01-28 Health System, Carlos [facility] 12:21:00 [facility] POCT-GLUCOSE METER 2023-01-28 Health System, Carlos [facility] 11:31:00 [facility] POCT-GLUCOSE METER 2023-01-28 Health System, Carlos [facility] 07:32:00 [facility] PT/APTT 2023-01-28 West, Anushka [facility] 05:42:00 [facility] MAGNESIUM 2023-01-28 West, Anushka [facility] 05:42:00 [facility] PHOSPHORUS 2023-01-28 West, Anushka [facility] 05:42:00 [facility] COMPREHENSIVE METABOLIC PANEL 2023-01-28 [place], [facility] 05:42:00 [facility] LACTATE DEHYDROGENASE (LDH) 2023-01-28 Health System, Carlos [facility] 05:42:00 [facility] HAPTOGLOBIN 2023-01-28 Health System, Carlos [facility] 05:42:00 [facility] CBC W/PLT COUNT & AUTO 2023-01-28 [facility] 05:42:00 [facility] CALCIUM, IONIZED 2023-01-28 Richardson, Rustam [facility] 05:42:00 [facility] RETICULOCYTE COUNT 2023-01-[address] [facility] 05:42:00 [facility] CBC W/PLT COUNT & AUTO 2023-01-28 Health System, Cralos [facility] DIFFERENTIAL 05:42:00 [facility] POCT-GLUCOSE METER 2023-01-27 Health System, Carlos [facility] 21:38:00 [facility] POCT-GLUCOSE METER 2023-01-27 Health System, Carlos [facility] 16:42:00 [facility] POCT-GLUCOSE METER 2023-01-27 Health System, Carlos [facility] 12:02:00 [facility] POCT-GLUCOSE METER 2023-01-27 Health System, Carlos [facility] 09:30:00 [facility] POCT-GLUCOSE METER 2023-01-27 Health System, Carlos [facility] 07:41:00 [facility] PT/APTT 2023-01-27 West, Anushka [facility] 05:20:00 [facility] MAGNESIUM 2023-01-27 West, Anushka [facility] 05:20:00 [facility] PHOSPHORUS 2023-01-27 West, Anushka [facility] 05:20:00 [facility] COMPREHENSIVE METABOLIC PANEL 2023-01-27 West, [facility] 05:20:00 [facility] LACTATE DEHYDROGENASE (LDH) 2023-01-27 Health System, Carlos [facility] 05:20:00 [facility] HAPTOGLOBIN 2023-01-27 Health System, Carlos [facility] 05:20:00 [facility] CALCIUM, IONIZED 2023-01-[address] [facility] 05:20:00 [facility] CBC W/PLT COUNT & AUTO 2023-01-[address] [facility] 05:20:00 [facility] CBC W/PLT COUNT & AUTO 2023-01-[address] [facility]FFER[facility] 05:20:00 [facility] (CELLAVISION MANUAL DIFF) 2023-01-[address] [facility] 05:20:00 [facility] POCT-GLUCOSE METER 2023-01-26 Health System, Carlos [facility] 22:18:00 [facility] POCT-GLUCOSE METER 2023-01-26 Health System, Carlos [facility] 15:55:00 [facility] POCT-GLUCOSE METER 2023-01-26 Health System, Carlos [facility] 11:31:00 [facility] POCT-GLUCOSE METER 2023-01-26 Health System, Carlos [facility] 07:57:00 [facility] POCT-GLUCOSE METER 2023-01-26 Health System, Carlos [facility] 07:33:00 [facility] PT/APTT 2023-01-26 West, Anushka [facility] 05:09:00 [facility] INCUBATED 1:1 MIXING STUDY 2023-01-[address] [facility] 05:09:00 [facility] MAGNESIUM 2023-01-[address] [facility] 04:38:00 [facility] PHOSPHORUS 2023-01-26 Dajuan, Anushka [facility] 04:38:00 [facility] COMPREHENSIVE METABOLIC PANEL 2023-01-[address] [facility] 04:38:00 [facility] LACTATE DEHYDROGENASE (LDH) 2023-01-26 Health System, Carlos [facility] 04:38:00 [facility] HAPTOGLOBIN 2023-01-26 Health System, Carlos [facility] 04:38:00 [facility] CBC W/PLT COUNT & AUTO 2023-01-[address] [facility] DIFFER[facility] 04:38:00 [facility] CALCIUM, IONIZED 2023-01-[address] [facility] 04:38:00 [facility] B-TYPE NATRIURETIC FACTOR (BNP) 2023-01-[address] [facility] 04:38:00 [facility] RETICULOCYTE COUNT 2023-01-[address] [facility] 04:38:00 [facility] BILIRUBIN, DIRECT 2023-01-[address] [facility] 04:38:00 [facility] CBC W/PLT COUNT & AUTO 2023-01-[address] [facility] DIFFER[facility] 04:38:00 [facility] (CELLAVISION MANUAL DIFF) 2023-01-[address] [facility] 04:38:00 [facility] POCT-GLUCOSE METER 2023-01-25 Sean, Carlos [facility] 22:03:00 [facility] APTT 2023-01-25 [place], [facility] 18:54:00 [facility] INCUBATED 1:1 MIXING STUDY 2023-01-[address] [facility] 18:54:00 [facility] PROTHROMBIN TIME/INR 2023-01-[address] [facility] 18:54:00 [facility] POCT-GLUCOSE METER 2023-01-25 Sean, Carlos [facility] 16:16:00 [facility] ANAEROBIC CULTURE 2023-01-[address] [facility] 15:42:00 [facility] FUNGUS CULTURE + SMEAR 2023-01-[address] [facility] 15:42:00 [facility] GLUCOSE PERITONEAL FLUID 2023-01-[address] [facility] 15:40:00 [facility] BODY FLUID CULTURE + GRAM STAIN 2023-01-25 Sean, Carlos [facility] 15:40:00 [facility] LACTATE DEHYDROGENASE (LDH), BODY 2023-01-25 Health System, Carlos [facility] FLUID 15:40:00 [facility] PROTEIN, BODY FLUID 2023-01-25 Health System, Carlos [facility] 15:40:00 [facility] BODY FLUID CELL COUNT WITH 2023-01-25 Sean, [facility] DIFFERENTIAL 15:40:00 [facility] CYTOLOGY 2023-01-25 Health System, Carlos [facility] 15:39:00 [facility] POCT-GLUCOSE METER 2023-01-25 Health System, Carlos [facility] 12:00:00 [facility] POCT-GLUCOSE METER 2023-01-25 Health System, Carlos [facility] 08:44:00 [facility] APTT 2023-01-25 West, Anushka [facility] 06:37:00 [facility] CALCIUM, IONIZED 2023-01-25 [place], [facility] 05:34:00 [facility] PT/APTT 2023-01-25 West, Anushka [facility] 05:23:00 [facility] MAGNESIUM 2023-01-25 West, Anushka [facility] 05:23:00 [facility] PHOSPHORUS 2023-01-25 West, Anushka [facility] 05:23:00 [facility] COMPREHENSIVE METABOLIC PANEL 2023-01-25 [place], [facility] 05:23:00 [facility] CBC W/PLT COUNT & AUTO 2023-01-[address] [facility] 05:23:00 [facility] LACTATE DEHYDROGENASE (LDH) 2023-01-25 Sean, Carlos [facility] 05:23:00 [facility] RETICULOCYTE COUNT 2023-01-[address] [facility] 05:23:00 [facility] CBC W/PLT COUNT & AUTO 2023-01-[address] [facility] DIFFER[facility] 05:23:00 [facility] US PARACENTESIS 2023-01-[address] [facility] 03:50:00 [facility] POCT-GLUCOSE METER 2023-01-24 Health System, Carlos [facility] 20:56:00 [facility] CT ABDOMEN/PELVIS WITHOUT IV 2023-01-24 Sean, Carlos [facility] CONTRAST 19:32:00 [facility] POCT-GLUCOSE METER 2023-01-24 Health System, Carlos [facility] 15:53:00 [facility] POCT-GLUCOSE METER 2023-01-24 Health System, Carlos [facility] 11:41:00 [facility] XR CHEST 1 VIEW PORTABLE / BEDSIDE 2023-01-[address] [facility] 09:10:00 [facility] POCT-GLUCOSE METER 2023-01-[address] [facility] 07:31:00 [facility] PT/APTT 2023-01-24 Dajuan, Anushka [facility] 03:57:00 [facility] MAGNESIUM 2023-01-24 West, Anushka [facility] 03:57:00 [facility] PHOSPHORUS 2023-01-24 West, Anushka [facility] 03:57:00 [facility] COMPREHENSIVE METABOLIC PANEL 2023-01-24 West, [facility] 03:57:00 [facility] HAPTOGLOBIN 2023-01-24 Fosso, Chimi [facility] 03:57:00 [facility] LACTATE DEHYDROGENASE (LDH) 2023-01-24 Fosso, Chimi [facility] 03:57:00 [facility] CALCIUM, IONIZED 2023-01-[address] [facility] 03:57:00 [facility] CBC W/PLT COUNT & AUTO 2023-01-[address] [facility] 03:57:00 [facility] CBC W/PLT COUNT & AUTO 2023-01-[address] [facility] 03:57:00 [facility] (CELLAVISION MANUAL DIFF) 2023-01-[address] [facility] 03:57:00 [facility] POCT-GLUCOSE METER 2023-01-23 Ramesh, Liv [facility] 20:33:00 [facility] POCT-GLUCOSE METER 2023-01-23 Ramesh, Liv [facility] 15:29:00 [facility] POCT-GLUCOSE METER 2023-01-23 Ramesh, Liv [facility] 11:19:00 [facility] POCT-GLUCOSE METER 2023-01-23 Ramesh, Liv [facility] 07:28:00 [facility] PT/APTT 2023-01-23 West, Anushka [facility] 06:01:00 [facility] MAGNESIUM 2023-01-23 West, Anushka [facility] 06:01:00 [facility] PHOSPHORUS 2023-01-23 West, Anushka [facility] 06:01:00 [facility] COMPREHENSIVE METABOLIC PANEL 2023-01-23 West, [facility] 06:01:00 [facility] CBC W/PLT COUNT & AUTO 2023-01-[address] [facility] 06:01:00 [facility] CBC W/PLT COUNT & AUTO 2023-01-23 Richardson, Urstam [facility] 06:01:00 [facility] (CELLAVISION MANUAL DIFF) 2023-01-[address] [facility] 06:01:00 [facility] POCT-GLUCOSE METER 2023-01-22 Ramesh, Liv [facility] 20:55:00 [facility] HEMODIALYSIS INPATIENT 2023-01-[address] [facility] 18:55:00 [facility] POCT-GLUCOSE METER 2023-01-22 Ramesh, Liv [facility] 11:47:00 [facility] POCT-GLUCOSE METER 2023-01-22 Ramesh, Liv [facility] 08:38:00 [facility] POCT-GLUCOSE METER 2023-01-22 Ramesh, Liv [facility] 07:35:00 [facility] PT/APTT 2023-01-22 West, Anushka [facility] 06:20:00 [facility] MAGNESIUM 2023-01-22 West, Anushka [facility] 06:20:00 [facility] PHOSPHORUS 2023-01-22 West, Anushka [facility] 06:20:00 [facility] COMPREHENSIVE METABOLIC PANEL 2023-01-22 West, [facility] 06:20:00 [facility] CBC (HEMOGRAM ONLY) 2023-01-[address] [facility] 06:20:00 [facility] PREPARE RBC 2023-01-21 Ramesh, Liv [facility] 23:54:00 [facility] POCT-GLUCOSE METER 2023-01-21 Ramesh, Liv [facility] 21:29:00 [facility] POCT-GLUCOSE METER 2023-01-21 Ramesh, Liv [facility] 15:35:00 [facility] POCT-GLUCOSE METER 2023-01-21 Ramesh, Liv [facility] 11:17:00 [facility] POCT-GLUCOSE METER 2023-01-21 Ramesh, Liv [facility] 07:34:00 [facility] HAPTOGLOBIN 2023-01-21 Fosso, Chimi [facility] 05:54:00 [facility] LACTATE DEHYDROGENASE (LDH) 2023-01-21 Fosso, Chimi [facility] 05:54:00 [facility] RETICULOCYTE COUNT 2023-01-[address] [facility] 05:54:00 [facility] PT/APTT 2023-01-[address] [facility] 05:54:00 [facility] MAGNESIUM 2023-01-[address] [facility] 05:54:00 [facility] PHOSPHORUS 2023-01-[address] [facility] 05:54:00 [facility] COMPREHENSIVE METABOLIC PANEL 2023-01-21 Anush[address] Gra[address] [facility] 05:54:00 [facility] CALCIUM, IONIZED 2023-01-[address] [facility] 05:54:00 [facility] CBC W/PLT COUNT & AUTO 2023-01-[address] [facility] 05:54:00 [facility] CBC W/PLT COUNT & AUTO 2023-01-[address] [facility] 05:54:00 [facility] POCT-GLUCOSE METER 2023-01-20 Ramesh, Liv [facility] 23:25:00 [facility] HEMODIALYSIS INPATIENT 2023-01-[address] [facility] 21:26:15 [facility] XR CHEST 1 VIEW PORTABLE / BEDSIDE 2023-01-[address] [facility] 20:02:00 [facility] [place] FLUORO NON-SPECIFIC UP TO 1 2023-01-[address] [facility] HOUR 18:40:00 [facility] INSERTION, CATHETER, DIALYSIS 2023-01-[address] [facility] 16:14:00 [facility] XR CHEST 1 VIEW PORTABLE / BEDSIDE 2023-01-20 Ramesh, Liv [facility] 15:18:00 [facility] POCT-GLUCOSE METER 2023-01-20 Ramesh, Liv [facility] 11:34:00 [facility] TRANSFUSE LEUKO-REDUCED RED BLOOD 2023-01-[address] [facility] CELLS 10:45:00 [facility] POCT-GLUCOSE METER 2023-01-20 Ramesh, Liv [facility] 07:42:00 [facility] PREPARE LEUKO-REDUCED RBC 2023-01-20 Mario, Karen [facility] 07:22:00 [facility] PT/APTT 2023-01-20 West, Anushka [facility] 03:10:00 [facility] MAGNESIUM 2023-01-20 West, Anushka [facility] 03:10:00 [facility] PHOSPHORUS 2023-01-20 West, Anushka [facility] 03:10:00 [facility] COMPREHENSIVE METABOLIC PANEL 2023-01-20 [place], [facility] 03:10:00 [facility] CALCIUM, IONIZED 2023-01-20 Richardson, Rustam [facility] 03:10:00 [facility] CBC W/PLT COUNT & AUTO 2023-01-20 Richardson, Rustam [facility] 03:10:00 [facility] CBC W/PLT COUNT & AUTO 2023-01-20 Richardson, Rustam [facility] 03:10:00 [facility] POCT-GLUCOSE METER 2023-01-19 Ramesh, Liv [facility] 20:55:00 [facility] HCG, QUANTITATIVE, 2023-01-[address] [facility] 18:31:00 [facility] POCT-GLUCOSE METER 2023-01-19 Ramesh, Liv [facility] 16:06:00 [facility] ANTIBODY IDENTIFICATION 2023-01-19 Ramesh, Liv [facility] 15:59:00 [facility] POCT-GLUCOSE METER 2023-01-19 Ramesh, Liv [facility] 11:38:00 [facility] POCT-GLUCOSE METER 2023-01-19 Ramesh, Liv [facility] 07:48:00 [facility] CBC (HEMOGRAM ONLY) 2023-01-[address] [facility] 06:09:00 [facility] PT/APTT 2023-01-[address] [facility] 05:02:00 [facility] MAGNESIUM 2023-01-19 West, Anushka [facility] 05:02:00 [facility] PHOSPHORUS 2023-01-19 West, Anushka [facility] 05:02:00 [facility] COMPREHENSIVE METABOLIC PANEL 2023-01-19 [place], [facility] 05:02:00 [facility] TYPE AND SCREEN, AUTOMATED 2023-01-19 MarioKaren [facility] 05:02:00 [facility] POCT-GLUCOSE METER 2023-01-18 Ramesh, Liv [facility] 21:00:00 [facility] POCT-GLUCOSE METER 2023-01-18 Ramesh, Liv [facility] 17:42:00 [facility] HEMODIALYSIS INPATIENT 2023-01-[address] [facility] 17:00:17 [facility] LACTATE DEHYDROGENASE (LDH) 2023-01-18 Fosso, Chimi [facility] 15:55:00 [facility] RETICULOCYTE COUNT 2023-01-18 Fosso, Chimi [facility] 15:55:00 [facility] HEMODIALYSIS INPATIENT 2023-01-[address] [facility] 14:45:35 [facility] POCT-GLUCOSE METER 2023-01-18 Ramesh, Liv [facility] 12:24:00 [facility] HEPATITIS B SURFACE ANTIGEN 2023-01-[address] [facility] 11:41:00 [facility] HAPTOGLOBIN 2023-01-18 Fosso, Chimi [facility] 11:41:00 [facility] POCT-GLUCOSE METER 2023-01-18 Ramesh, Liv [facility] 08:20:00 [facility] PT/APTT 2023-01-18 West, Anushka [facility] 04:18:00 [facility] MAGNESIUM 2023-01-18 West, Anushka [facility] 04:18:00 [facility] PHOSPHORUS 2023-01-18 West, Anushka [facility] 04:18:00 [facility] COMPREHENSIVE METABOLIC PANEL 2023-01-18 West, [facility] 04:18:00 [facility] CALCIUM, IONIZED 2023-01-[address] [facility] 04:18:00 [facility] CBC W/PLT COUNT & AUTO 2023-01-[address] [facility] DIFFERENTIAL 04:18:00 [facility] CBC W/PLT COUNT & AUTO 2023-01-[address] [facility] DIFFERENTIAL 04:18:00 [facility] POCT-GLUCOSE METER 2023-01-17 Ramesh, Liv [facility] 20:45:00 [facility] POCT-GLUCOSE METER 2023-01-17 Ramesh, Liv [facility] 15:37:00 [facility] POCT-GLUCOSE METER 2023-01-17 Ramesh, Liv [facility] 11:14:00 [facility] POCT-GLUCOSE METER 2023-01-17 Ramesh, Liv [facility] 07:29:00 [facility] PT/APTT 2023-01-17 West, Anushka [facility] 05:25:00 [facility] MAGNESIUM 2023-01-17 West, Anushka [facility] 05:25:00 [facility] PHOSPHORUS 2023-01-17 West, Anushka [facility] 05:25:00 [facility] COMPREHENSIVE METABOLIC PANEL 2023-01-17 West, [facility] 05:25:00 [facility] CBC (HEMOGRAM ONLY) 2023-01-[address] [facility] 05:25:00 [facility] PREPARE RBC 2023-01-17 Haven Garciahal Berrios [facility] 04:18:00 [facility] POCT-GLUCOSE METER 2023-01-16 Haven Garciahal Berrios [facility] 20:50:00 [facility] POCT-GLUCOSE METER 2023-01-16 Jose Dorota Berrios [facility] 15:53:00 [facility] POCT-GLUCOSE METER 2023-01-16 Haven Garciahal Berrios [facility] 11:28:00 [facility] XR CHEST 1 VIEW PORTABLE / BEDSIDE 2023-01-[address] [facility] 08:43:00 [facility] POCT-GLUCOSE METER 2023-01-[address] [facility] 07:26:00 [facility] PT/APTT 2023-01-16 West, Anushka [facility] 05:52:00 [facility] MAGNESIUM 2023-01-16 West, Anushka [facility] 05:52:00 [facility] PHOSPHORUS 2023-01-16 West, Anushka [facility] 05:52:00 [facility] COMPREHENSIVE METABOLIC PANEL 2023-01-16 [address] [facility] 05:52:00 [facility] CBC (HEMOGRAM ONLY) 2023-01-[address] [facility] 05:52:00 [facility] POCT-GLUCOSE METER 2023-01-15 Haven Garciahal Berrios [facility] 21:03:00 [facility] POCT-GLUCOSE METER 2023-01-15 Dorota Garcia Berrios [facility] 17:04:00 [facility] HEMODIALYSIS INPATIENT 2023-01-[address] [facility] 14:10:01 [facility] POCT-GLUCOSE METER 2023-01-[address] [facility] 12:32:00 [facility] POCT-GLUCOSE METER 2023-01-[address] [facility] 08:03:00 [facility] PT/APTT 2023-01-[address] [facility] 06:33:00 [facility] MAGNESIUM 2023-01-[address] [facility] 06:33:00 [facility] PHOSPHORUS 2023-01-[address] [facility] 06:33:00 [facility] COMPREHENSIVE METABOLIC PANEL 2023-01-[address] [facility] 06:33:00 [facility] CALCIUM, IONIZED 2023-01-[address] [facility] 06:33:00 [facility] CBC W/PLT COUNT & AUTO 2023-01-[address] [facility] DIFFERENTIAL 06:33:00 [facility] CBC W/PLT COUNT & AUTO 2023-01-[address] [facility] DIFFERENTIAL 06:33:00 [facility] POCT-GLUCOSE METER 2023-01-14 Dorota Garcia [facility]rios [facility] 21:49:00 [facility] POCT-GLUCOSE METER 2023-01-14 Dorota Garcia Berrios [facility] 16:52:00 [facility] POCT-GLUCOSE METER 2023-01-14 Dorota Garcia Berrios [facility] 12:12:00 [facility] BLOOD CULTURE 2023-01-14 Dorota Garcia Berrios [facility] 09:08:00 [facility] POCT-GLUCOSE METER 2023-01-14 Haven [address]ha Berrios [facility] 08:33:00 [facility] PT/APTT 2023-01-[address] [facility] 05:08:00 [facility] MAGNESIUM 2023-01-14 West, Anushka [facility] 05:08:00 [facility] PHOSPHORUS 2023-01-14 West, Anushka [facility] 05:08:00 [facility] COMPREHENSIVE METABOLIC PANEL 2023-01-14 West, [facility]ush[facility] 05:08:00 [facility] CBC (HEMOGRAM ONLY) 2023-01-[address] [facility] 05:08:00 [facility] POCT-GLUCOSE METER 2023-01-13 Dorota Garcia [facility]rios [facility] 23:36:00 [facility] BLOOD CULTURE 2023-01-[address] [facility] 19:47:00 [facility] B-TYPE NATRIURETIC FACTOR (BNP) 2023-01-[address] [facility] 19:47:00 [facility] HEMODIALYSIS INPATIENT 2023-01-[address] [facility] 19:42:09 [facility] POCT-GLUCOSE METER 2023-01-13 Dorota Garcia Agustina [facility] 17:45:00 [facility] B-TYPE NATRIURETIC FACTOR (BNP) 2023-01-[address] [facility] 17:39:00 [facility] ANTIBODY IDENTIFICATION 2023-01-13 Dorota Garcia Berrios [facility] 15:47:00 [facility] POCT-GLUCOSE METER 2023-01-[address] [facility] 11:52:00 [facility] POCT-GLUCOSE METER 2023-01-[address] [facility] 08:06:00 [facility] XR CHEST 1 VIEW PORTABLE / BEDSIDE 2023-01-13 Dorota Garcia [address]el [facility] 07:34:00 [facility] PT/APTT 2023-01-13 West, Anushka [facility] 04:12:00 [facility] MAGNESIUM 2023-01-13 Dajuan, Anushka [facility] 04:12:00 [facility] PHOSPHORUS 2023-01-[address] [facility] 04:12:00 [facility] COMPREHENSIVE METABOLIC PANEL 2023-01-[address] [facility] 04:12:00 [facility] [facility] CALCIUM, IONIZED 2023-01-[address] [facility] 04:12:00 [facility] CBC W/PLT COUNT & AUTO 2023-01-13 Richardson, Rustam [facility] 04:12:00 [facility] TYPE AND SCREEN, AUTOMATED 2023-01-13 Haven Garciahal Berrios [facility] 04:12:00 [facility] CBC W/PLT COUNT & AUTO 2023-01-[address] [facility] DIFFERENTIAL 04:12:00 [facility] POCT-GLUCOSE METER 2023-01-12 Jose Dorota Berrios [facility] 21:34:00 [facility] POCT-GLUCOSE METER 2023-01-12 Jose Dorota Berrios [facility] 16:16:00 [facility] POCT-GLUCOSE METER 2023-01-12 Jose Dorota Berrios [facility] 12:16:00 [facility] POCT-GLUCOSE METER 2023-01-12 Jose Dorota Berrios [facility] 07:32:00 [facility] XR CHEST 1 VIEW PORTABLE / BEDSIDE 2023-01-[address] [facility] 07:25:00 [facility] PREPARE LEUKO-REDUCED RBC 2023-01-[address] [facility] 06:59:00 [facility] PT/APTT 2023-01-[address] [facility] 04:16:00 [facility] MAGNESIUM 2023-01-[address] [facility] 04:16:00 [facility] PHOSPHORUS 2023-01-[address] [facility] 04:16:00 [facility] COMPREHENSIVE METABOLIC PANEL 2023-01-12 [address] [facility] 04:16:00 [facility] CBC (HEMOGRAM ONLY) 2023-01-12 Dajuan, Anushka [facility] 04:16:00 [facility] RETICULOCYTE COUNT 2023-01-[address] [facility] 04:16:00 [facility] POCT-GLUCOSE METER 2023-01-11 Li, Azucena [facility] 21:04:00 [facility] POCT-GLUCOSE METER 2023-01-11 Li, Azucena [facility] 12:19:00 [facility] POCT-GLUCOSE METER 2023-01-11 Li, Azucena [facility] 08:05:00 [facility] XR CHEST 1 VIEW PORTABLE / BEDSIDE 2023-01-11 West, Anushka [facility] 06:54:00 [facility] PT/APTT 2023-01-11 West, Anushka [facility] 04:40:00 [facility] MAGNESIUM 2023-01-11 West, Anushka [facility] 04:40:00 [facility] PHOSPHORUS 2023-01-11 West, Anushka [facility] 04:40:00 [facility] COMPREHENSIVE METABOLIC PANEL 2023-01-11 Dajuan, Anushka [facility] 04:40:00 [facility] CALCIUM, IONIZED 2023-01-[address] [facility] 04:40:00 [facility] CBC W/PLT COUNT & AUTO 2023-01-[address] [facility] DIFFER[facility] 04:40:00 [facility] CBC W/PLT COUNT & AUTO 2023-01-[address] [facility] 04:40:00 [facility] POCT-GLUCOSE METER 2023-01-10 Jen, Azucena [facility] 20:37:00 [facility] POCT-GLUCOSE METER 2023-01-10 Jen, Azucena [facility] 17:25:00 [facility] ECG 12-LEAD 2023-01-[address] [facility] 14:23:59 [facility] HEMODIALYSIS INPATIENT 2023-01-[address] [facility] 14:20:14 [facility] POCT-GLUCOSE METER 2023-01-10 Jen, Azucena [facility] 11:22:00 [facility] POCT-GLUCOSE METER 2023-01-10 Jen, Azucena [facility] 08:10:00 [facility] ECG 12-LEAD 2023-01-[address] [facility] 07:32:31 [facility] XR CHEST 1 VIEW PORTABLE / BEDSIDE 2023-01-10 West, Anushka [facility] 05:27:00 [facility] PT/APTT 2023-01-10 West, Anushka [facility] 05:18:00 [facility] MAGNESIUM 2023-01-10 West, Anushka [facility] 05:18:00 [facility] PHOSPHORUS 2023-01-10 West, Anushka [facility] 05:18:00 [facility] COMPREHENSIVE METABOLIC PANEL 2023-01-10 West, Anushka [facility] 05:18:00 [facility] CBC (HEMOGRAM ONLY) 2023-01-10 West, Anushka [facility] 05:18:00 [facility] APTT 2023-01-10 West, Anushka [facility] 05:18:00 [facility] PREPARE RBC 2023-01-09 Li, Azucena [facility] 23:54:00 [facility] POCT-GLUCOSE METER 2023-01-09 Jen, Azucena [facility] 20:52:00 [facility] APTT 2023-01-09 Dajuan, Anushka [facility] 20:35:[address] [facility] [address] BRAIN WITHOUT IV CONTRAST 2023-01-09 Jen, Azucena [facility] 20:15:00 [facility] CBC W/PLT COUNT & AUTO 2023-01-09 Li, Azucena [facility] 19:19:00 [facility] CBC W/PLT COUNT & AUTO 2023-01-09 Li, [facility]ucena [facility] 19:19:00 [facility] POCT-GLUCOSE METER 2023-01-09 Li, Azucena [facility] 18:11:00 [facility] POCT-GLUCOSE METER 2023-01-09 Li, Azucena [facility] 16:15:00 [facility] POCT-GLUCOSE METER 2023-01-09 Jen, Azucena [facility] 12:09:00 [facility] ANTIBODY IDENTIFICATION 2023-01-09 Jen, [facility]ucena [facility] 11:55:00 [facility] POCT-GLUCOSE METER 2023-01-09 Li, Azucena [facility] 08:15:00 [facility] PT/APTT 2023-01-09 West, Anushka [facility] 06:01:00 [facility] MAGNESIUM 2023-01-09 West, Anushka [facility] 06:01:00 [facility] PHOSPHORUS 2023-01-09 West, Anushka [facility] 06:01:00 [facility] COMPREHENSIVE METABOLIC PANEL 2023-01-09 West, Anushka [facility] 06:01:00 [facility] CBC (HEMOGRAM ONLY) 2023-01-09 West, Anushka [facility] 06:01:00 [facility] XR CHEST 1 VIEW PORTABLE / BEDSIDE 2023-01-[address] [facility] 05:46:00 [facility] POCT-GLUCOSE METER 2023-01-08 Li, Azucena [facility] 21:27:00 [facility] POCT-GLUCOSE METER 2023-01-08 Li, Azucena [facility] 16:07:00 [facility] TRANSFUSE LEUKO-REDUCED RED BLOOD 2023-01-[address] [facility] 13:39:00 [facility] POCT-GLUCOSE METER 2023-01-08 Li, Azucena [facility] 11:47:00 [facility] HAPTOGLOBIN 2023-01-08 Fosso, Chimi [facility] 11:24:00 [facility] TYPE AND SCREEN, AUTOMATED 2023-01-08 Karen Mario [facility] 11:24:00 [facility] POCT-GLUCOSE METER 2023-01-08 Li, Azucena [facility] 07:44:00 [facility] XR CHEST 1 VIEW PORTABLE / BEDSIDE 2023-01-08 Dajuan, Anushka [facility] 07:11:00 [facility] MAGNESIUM 2023-01-08 West, Anushka [facility] 06:37:00 [facility] PHOSPHORUS 2023-01-08 West, Anushka [facility] 06:37:00 [facility] COMPREHENSIVE METABOLIC PANEL 2023-01-08 West, Anushka [facility] 06:37:00 [facility] CBC (HEMOGRAM ONLY) 2023-01-[address] [facility] 06:37:00 [facility] LACTATE DEHYDROGENASE (LDH) 2023-01-08 Fosso, Chimi [facility] 06:37:00 [facility] RETICULOCYTE COUNT 2023-01-08 Fosso, Chimi [facility] 06:37:00 [facility] POCT-GLUCOSE METER 2023-01-08 Li, Azucena [facility] 00:54:00 [facility] APTT 2023-01-08 Dajuan, Anushka [facility] 00:50:00 [facility] PT/APTT 2023-01-08 Dajuan, Anushka [facility] 00:50:00 [facility] POCT-GLUCOSE METER 2023-01-07 Li, Azucena [facility] 19:13:00 [facility] APTT 2023-01-07 Dajuan, Anushka [facility] 17:59:00 [facility] CBC (HEMOGRAM ONLY) 2023-01-[address] [facility] 15:16:00 [facility] APTT 2023-01-[address] [facility] 15:16:00 [facility] POCT-GLUCOSE METER 2023-01-07 Li, Azucena [facility] 13:28:00 [facility] HEMODIALYSIS INPATIENT 2023-01-[address] [facility] 11:35:00 [facility] LIMITED 2D ECHOCARDIOGRAM 2023-01-07 Ping Martin [facility] 09:10:00 [facility] POCT-GLUCOSE METER 2023-01-[address] [facility] 07:09:00 M[facility] PREPARE LEUKO-REDUCED RBC 2023-01-[address] [facility] 07:06:00 [facility] PREPARE RBC 2023-01-07 S[address] [facility] 07:06:00 [facility] CBC (HEMOGRAM ONLY) 2023-01-[address] [facility] 06:15:00 [facility] APTT 2023-01-[address] [facility] 06:15:00 [facility] XR CHEST 1 VIEW PORTABLE / BEDSIDE 2023-01-[address] [facility] 04:33:00 [facility] MAGNESIUM 2023-01-07 West, Anushka [facility] 01:29:00 [facility] PHOSPHORUS 2023-01-07 West, Anushka [facility] 01:29:00 [facility] COMPREHENSIVE METABOLIC PANEL 2023-01-07 West, Anushka [facility] 01:29:00 [facility] VANCOMYCIN LEVEL, RANDOM 2023-01-[address] [facility] 01:29:00 [facility] PT/APTT 2023-01-07 Dajuan, Anushka [facility] 01:28:00 [facility] APTT 2023-01-[address] [facility] 01:28:00 [facility] POCT-GLUCOSE METER 2023-01-[address] [facility] 23:23:00 [facility] APTT 2023-01-[address] [facility] 23:17:00 [facility] APTT 2023-01-[address] [facility] 17:50:00 [facility] CBC W/PLT COUNT & AUTO 2023-01-[address] [facility] 17:50:00 [facility] CBC W/PLT COUNT & AUTO 2023-01-[address] [facility] 17:50:00 [facility] POCT-GLUCOSE METER 2023-01-[address] [facility] 16:12:00 [facility] CONT WAVE PULSED DOPPLER 2023-01-[address] [facility] 14:06:42 [facility] POCT-GLUCOSE METER 2023-01-[address] [facility] 11:20:00 [facility] APTT 2023-01-[address] [facility] 09:36:00 [facility] POCT-GLUCOSE METER 2023-01-[address] [facility] 05:45:00 [facility] XR CHEST 1 VIEW PORTABLE / BEDSIDE 2023-01-06 West, Anushka [facility] 05:12:00 [facility] LACTATE DEHYDROGENASE (LDH) 2023-01-06 Kee, Abelmna A [facility] 03:52:00 [facility] HAPTOGLOBIN 2023-01-06 Kee, Abelmna A [facility] 03:52:00 [facility] RETICULOCYTE COUNT 2023-01-06 Kee, Abelmna A [facility] 03:52:00 [facility] PT/APTT 2023-01-06 West, Anushka [facility] 03:52:00 [facility] FIBRINOGEN 2023-01-06 Kee, Abelmna A [facility] 03:52:00 [facility] MAGNESIUM 2023-01-06 West, Anushka [facility] 03:52:00 [facility] PHOSPHORUS 2023-01-06 West, Anushka [facility] 03:52:00 [facility] COMPREHENSIVE METABOLIC PANEL 2023-01-06 West, Anushka [facility] 03:52:00 [facility] CBC W/PLT COUNT & AUTO 2023-01-06 Sesar, Roger [facility] 03:52:00 [facility] VANCOMYCIN LEVEL, RANDOM 2023-01-[address] [facility] 03:52:00 [facility] CBC W/PLT COUNT & AUTO 2023-01-06 Sesar, Roger [facility] 03:52:00 [facility] POCT-GLUCOSE METER 2023-01-[address] [facility] 00:30:00 [facility] APTT 2023-01-[address] [facility] 22:57:00 [facility] POCT-GLUCOSE METER 2023-01-[address] [facility] 16:20:00 [facility] XR CHEST 1 VIEW PORTABLE / BEDSIDE 2023-01-[address] [facility] 15:55:00 [facility] US GUIDE, VASCULAR ACCESS 2023-01-[address] [facility] 15:28:08 [facility] APTT 2023-01-[address] [facility] 15:19:00 [facility] POCT-GLUCOSE METER 2023-01-[address] [facility] 11:10:00 [facility] CBC W/PLT COUNT & AUTO 2023-01-[address] [facility] 09:41:[address] [facility] CBC W/PLT COUNT & AUTO 2023-01-[address] [facility] 09:41:[address] [facility] VANCOMYCIN LEVEL, RANDOM 2023-01-[address] [facility] 08:35:00 [facility] APTT 2023-01-[address] [facility] 08:35:00 [facility] TRANSFUSE LEUKO-REDUCED RED BLOOD 2023-01-[address] [facility] CELL[facility] 06:40:00 [facility] POCT-GLUCOSE METER 2023-01-[address] [facility] 05:45:00 [facility] XR CHEST 1 VIEW PORTABLE / BEDSIDE 2023-01-[address] [facility] 05:12:00 [facility] LACTATE DEHYDROGENASE (LDH) 2023-01-05 Kee Pete Adams [facility] 03:51:00 [facility] HAPTOGLOBIN 2023-01-05 Kee Youmna A [facility] 03:51:00 [facility] RETICULOCYTE COUNT 2023-01-05 Kee Abelmna A [facility] 03:51:00 [facility] PT/APTT 2023-01-[address] [facility] 03:51:00 [facility] FIBRINOGEN 2023-01-05 Kee Normaa A [facility] 03:51:00 [facility] MAGNESIUM 2023-01-[address] [facility] 03:51:00 [facility] PHOSPHORUS 2023-01-[address] [facility] 03:51:00 [facility] COMPREHENSIVE METABOLIC PANEL 2023-01-05 An[address] [facility] 03:51:00 [facility] CBC W/PLT COUNT & AUTO 2023-01-[address] [facility] 03:51:00 [facility] CBC W/PLT COUNT & AUTO 2023-01-[address] [facility] 03:51:00 [facility] POCT-GLUCOSE METER 2023-01-[address] [facility] 01:05:00 [facility] APTT 2023-01-[address] [facility] 01:03:00 [facility] POCT-GLUCOSE METER 2023-01-04 Magdalena, Toby [facility] 21:43:00 [facility] CALCIUM, IONIZED 2023-01-04 Richardson, Rustam [facility] 19:51:00 [facility] PHOSPHORUS 2023-01-04 Richardson, Rustam [facility] 19:51:00 [facility] MAGNESIUM 2023-01-04 Richardson, Rustam [facility] 19:51:00 [facility] BASIC METABOLIC PANEL 2023-01-04 Richardson, Rustam [facility] 19:51:00 [facility] APTT 2023-01-[address] [facility] 18:07:00 [facility] POCT-GLUCOSE METER 2023-01-[address] [facility] 17:29:00 [facility] PLATELET COUNT 2023-01-04 Mofor, Loyce [facility] 11:22:[address] [facility] APTT 2023-01-04 Mofor, Loyce [facility] 11:22:[address] [facility] POCT-GLUCOSE METER 2023-01-[address] [facility] 11:14:00 [facility] PREPARE RBC 2023-01-[address] [facility] 07:04:00 [facility] POCT-GLUCOSE METER 2023-01-[address] [facility] 05:50:00 [facility] LACTATE DEHYDROGENASE (LDH) 2023-01-04 Norma Sweeta A [facility] 04:58:00 [facility] HAPTOGLOBIN 2023-01-04 Abel Sweetmna A [facility] 04:58:00 [facility] RETICULOCYTE COUNT 2023-01-04 Abel Sweetmna A [facility] 04:58:00 [facility] PT/APTT 2023-01-[address] [facility] 04:58:00 [facility] FIBRINOGEN 2023-01-04 [address] Bryan [facility] 04:58:00 [facility] MAGNESIUM 2023-01-[address] [facility] 04:58:00 [facility] PHOSPHORUS 2023-01-[address] [facility] 04:58:00 [facility] COMPREHENSIVE METABOLIC PANEL 2023-01-[address] [facility] 04:58:00 [facility] VANCOMYCIN LEVEL, RANDOM 2023-01-04 Chula Juan Pablopatt [facility] 04:58:00 [facility] CBC W/PLT COUNT & AUTO 2023-01-04 Sesar, Roger [facility] 04:58:00 [facility] CBC W/PLT COUNT & AUTO 2023-01-04 Sesar, Roger [facility] 04:58:00 [facility] (CELLAVISION MANUAL DIFF) 2023-01-04 Sesar, Roger [facility] 04:58:00 [facility] XR CHEST 1 VIEW PORTABLE / BEDSIDE 2023-01-[address] [facility] 02:50:00 [facility] POCT-GLUCOSE METER 2023-01-[address] [facility] 01:31:00 [facility] BASIC METABOLIC PANEL 2023-01-03 Brain, Rustam [facility] 21:44:00 [facility] CALCIUM, IONIZED 2023-01-03 Brain, Rustam [facility] 21:44:00 [facility] PHOSPHORUS 2023-01-03 Richardson, Rustam [facility] 21:44:00 [facility] MAGNESIUM 2023-01-03 Richardson, Rustam [facility] 21:44:00 [facility] POCT-GLUCOSE METER 2023-01-[address] [facility] 17:17:00 [facility] XR CHEST 1 VIEW PORTABLE / BEDSIDE 2023-01-[address] [facility] 16:19:00 [facility] ANTIBODY IDENTIFICATION 2023-01-[address] [facility] 15:48:00 [facility] BASIC METABOLIC PANEL 2023-01-[address] [facility] 13:33:00 [facility] MAGNESIUM 2023-01-[address] [facility] 13:33:00 [facility] PHOSPHORUS 2023-01-[address] [facility] 13:33:00 [facility] CALCIUM, IONIZED 2023-01-[address] [facility] 13:33:00 [facility] BLOOD GAS, ARTERIAL 2023-01-[address] [facility] 13:33:00 [facility] CBC W/PLT COUNT & AUTO 2023-01-[address] [facility] 13:33:00 [facility] CBC W/PLT COUNT & AUTO 2023-01-[address] [facility] 13:33:00 [facility] (CELLAVISION MANUAL DIFF) 2023-01-[address] [facility] 13:33:00 [facility] XR ABDOMEN/KUB 1 VIEW PORTABLE 2023-01-[address] [facility] 12:10:00 D [facility] PREPARE LEUKO-REDUCED RBC 2023-01-[address] [facility] 10:31:00 [facility] TISSUE EXAM 2023-01-[address] Juan [address] [facility] 09:45:00 D [facility] RRL CRITICAL LABS 2023-01-03 [address] [facility] (ABG,NA,K,H&H,GLUCOSE) 08:39:[address] [facility] enter BLOOD GAS, ARTERIAL 2023-01-[address] [facility] 08:39:10 D [facility] CALCIUM, IONIZED 2023-01-[address] [facility] 08:39:10 D [facility] PH, ARTERIAL 2023-01-[address] [facility] 08:39:10 D [facility] SODIUM NA-STAT LAB 2023-01-[address] Juan [address] [facility] 08:39:10 D [facility] POTASSIUM-STAT LAB 2023-01-[address] [facility] 08:39:10 D [facility] GLUCOSE-STAT LAB 2023-01-[address] [facility] 08:39:10 D [facility] HGB/HCT (H&H) - STAT LAB 2023-01-03 JuanRicki [facility] 08:39:10 D [facility] [place] LAPAROTOMY, EXPLORATORY 2023-01-[address] [facility] 07:59:00 D [facility] CREATION, ILEOSTOMY 2023-01-[address] [facility] 07:59:00 [facility] CREATION, COLOSTOMY 2023-01-[address] [facility] 07:59:00 D [facility] BLOOD BANK EXTRA PINK KEDTA TOP 2023-01-[address] [facility] 07:51:00 [facility] XR CHEST 1 VIEW PORTABLE / BEDSIDE 2023-01-[address] [facility] 05:30:00 [facility] POCT-GLUCOSE METER 2023-01-[address] [facility] 05:22:00 [facility] CALCIUM, IONIZED 2023-01-[address] [facility] 04:16:00 [facility] PHOSPHORUS 2023-01-[address] [facility] 04:16:00 [facility] MAGNESIUM 2023-01-[address] [facility] 04:16:00 [facility] LACTATE DEHYDROGENASE (LDH) 2023-01-03 Abel Sweetmna A [facility] 04:16:00 [facility] HAPTOGLOBIN 2023-01-03 Abel Sweetmna A [facility] 04:16:00 [facility] RETICULOCYTE COUNT 2023-01-03 Abel Sweetmna A [facility] 04:16:00 [facility] PT/APTT 2023-01-[address] [facility] 04:16:00 [facility] FIBRINOGEN 2023-01-03 Kee Youmna A [facility] 04:16:00 [facility] COMPREHENSIVE METABOLIC PANEL 2023-01-03 [address] [facility] 04:16:00 [facility] CBC (HEMOGRAM ONLY) 2023-01-[address] [facility] 04:16:00 [facility] HCG, QUANTITATIVE, 2023-01-03 Kash, Rosalind [facility] 04:16:00 [facility] POCT-GLUCOSE METER 2023-01-[address] [facility] 00:24:00 [facility] CALCIUM, IONIZED 2023-01-03 Richardson, Rustam [facility] 00:20:00 [facility] BASIC METABOLIC PANEL 2023-01-03 Richardson, Rustam [facility] 00:20:00 [facility] PHOSPHORUS 2023-01-03 Richardson, Rustam [facility] 00:20:00 [facility] MAGNESIUM 2023-01-03 Richardson, Rustam [facility] 00:20:00 [facility] TYPE AND SCREEN, AUTOMATED 2023-01-03 Harsha Orellana [facility] 00:20:00 [facility] XR CHEST 1 VIEW PORTABLE / BEDSIDE 2023-01-02 Blue Caridadevie parmjitwanda [facility] 19:31:00 [facility] POCT-GLUCOSE METER 2023-01-02 Magdalena, Toby [facility] 17:35:00 [facility] BASIC METABOLIC PANEL 2023-01-02 Richardson, Rustam [facility] 16:06:00 [facility] CALCIUM, IONIZED 2023-01-02 Richardson, Rustam [facility] 16:06:00 [facility] PHOSPHORUS 2023-01-02 Richardson, Rustam [facility] 16:06:00 [facility] MAGNESIUM 2023-01-02 Richardson, Rustam [facility] 16:06:00 [facility] POCT-GLUCOSE METER 2023-01-02 Magdalena, Toby [facility] 11:27:00 [facility] BLOOD GAS, ARTERIAL 2023-01-02 West, Anushka [facility] 09:40:00 [facility] POCT-GLUCOSE METER 2023-01-02 Magdalena, Toby [facility] 08:02:00 [facility] XR CHEST 1 VIEW PORTABLE / BEDSIDE 2023-01-02 West, Anushka [facility] 02:30:00 [facility] CALCIUM, IONIZED 2023-01-02 Richardson, Rustam [facility] 01:46:00 [facility] LACTATE DEHYDROGENASE (LDH) 2023-01-[address] [facility] 01:18:00 [facility] HAPTOGLOBIN 2023-01-[address] [facility] 01:18:00 [facility] RETICULOCYTE COUNT 2023-01-02 Abel Sweetmna A [facility] 01:18:00 [facility] PT/APTT 2023-01-[address] [facility] 01:18:00 [facility] FIBRINOGEN 2023-01-02 Abel Sweetmna A [facility] 01:18:00 [facility] [place] COMPREHENSIVE METABOLIC PANEL 2023-01-02 [address] [facility] 01:18:00 [facility] CBC (HEMOGRAM ONLY) 2023-01-[address] [facility] 01:18:00 [facility] BASIC METABOLIC PANEL 2023-01-02 Richardson, Rustam [facility] 00:07:00 [facility] CALCIUM, IONIZED 2023-01-02 Richardson, Rustam [facility] 00:07:00 [facility] PHOSPHORUS 2023-01-02 Richardson, Rustam [facility] 00:07:00 [facility] MAGNESIUM 2023-01-02 Richardson, Rustam [facility] 00:07:00 [facility] PREPARE LEUKO-REDUCED RBC 2023-01-[address] [facility] 23:54:00 [facility] BASIC METABOLIC PANEL 2023-01-01 Richardson, Rustam [facility] 21:51:00 [facility] CALCIUM, IONIZED 2023-01-01 Richardson, Rustam [facility] 21:51:00 [facility] PHOSPHORUS 2023-01-01 Richardson, Rustam [facility] 21:51:00 [facility] MAGNESIUM 2023-01-01 Richardson, Rustam [facility] 21:51:00 [facility] POCT-GLUCOSE METER 2023-01-[address] [facility] 18:14:00 [facility] POCT-GLUCOSE METER 2023-01-[address] [facility] 12:02:00 [facility] XR CHEST 1 VIEW PORTABLE / BEDSIDE 2023-01-[address] [facility] 11:30:00 [facility] BLOOD GAS, ARTERIAL 2023-01-[address] [facility] 11:26:00 [facility] POCT-GLUCOSE METER 2023-01-[address] [facility] 06:26:00 [facility] HC ARTERIAL DOPPLER LEG UNI 2023-01-01 Creden, Deshaun [facility] 06:24:00 [facility] LACTATE DEHYDROGENASE (LDH) 2023-01-01 Kee, Abelmna A [facility] 02:40:00 [facility] HAPTOGLOBIN 2023-01-01 Kee, Youmna A [facility] 02:40:00 [facility] RETICULOCYTE COUNT 2023-01-01 Kee, Youmna A [facility] 02:40:00 [facility] PT/APTT 2023-01-01 West, Anushka [facility] 02:40:00 [facility] FIBRINOGEN 2023-01-01 Kee, Abelmna A [facility] 02:40:00 [facility] MAGNESIUM 2023-01-01 West, Anushka [facility] 02:40:00 [facility] PHOSPHORUS 2023-01-01 West, Anushka [facility] 02:40:00 [facility] COMPREHENSIVE METABOLIC PANEL 2023-01-01 West, [facility]ushka [facility] 02:40:00 [facility] CBC (HEMOGRAM ONLY) 2023-01-01 Pete Sweet [facility] 02:40:00 [facility] POCT-GLUCOSE METER 2022-12-31 Magdalena, Toby [facility] 23:50:00 [facility] CBC W/PLT COUNT & AUTO 2022-12-31 Creden, Deshaun [facility] DIFFERENTIAL 18:07:00 [facility] BASIC METABOLIC PANEL 2022-12-31 Creden, Deshaun [facility] 18:07:00 [facility] HEPATIC FUNCTION PANEL 2022-12-31 Creden, Deshaun [facility] 18:07:00 [facility] MAGNESIUM 2022-12-31 Creden, Deshaun [facility] 18:07:00 [facility] PHOSPHORUS 2022-12-31 Creden, Deshaun [facility] 18:07:00 [facility] PT/APTT 2022-12-31 Creden, Deshaun [facility] 18:07:00 [facility] PROTHROMBIN TIME/INR 2022-12-[address] [facility] 18:07:00 [facility] BLOOD GAS, ARTERIAL 2022-12-31 Mary, [facility]untrue [facility] 18:07:00 [facility] CBC W/PLT COUNT & AUTO 2022-12-[address] [facility] DIFFERENTIAL 18:07:00 [facility] XR CHEST 1 VIEW PORTABLE / BEDSIDE 2022-12-[address] [facility] 18:02:00 [facility] ANTIBODY IDENTIFICATION 2022-12-31 Tila, Bernarda [facility] 17:27:00 [facility] TRANSFUSE LEUKO-REDUCED RBC (IN 2022-12-[address] [facility] ML) 16:07:00 [facility] FUNGUS CULTURE + SMEAR 2022-12-[address] [facility] [facility] 15:53:00 [facility] SURGICALLY OBTAINED CULTURE + GRAM 2022-12-[address] [facility] STAIN 15:53:00 [facility] ANAEROBIC CULTURE 2022-12-31 Tila, Bernarda [facility] 15:53:00 [facility] AFB CULTURE + SMEAR (NON-SPUTUM) 2022-12-[address] [facility] 15:53:00 [facility] SPIN/CONCENTRATION CHARGE 2022-12-31 Tila, Bernarda [facility] 15:53:00 [facility] TRANSFUSE LEUKO-REDUCED RED BLOOD 2022-12-[address] [facility] CELLS 15:50:00 [facility] TISSUE EXAM 2022-12-[address] [facility] 15:43:00 [facility] RRL CRITICAL LABS 2022-12-[address] [facility] (ABG,NA,K,H&H,GLUCOSE) 15:17:49 [facility] enter CALCIUM, IONIZED 2022-12-[address] [facility] 15:17:49 [facility] BLOOD GAS, ARTERIAL 2022-12-[address] [facility] 15:17:49 [facility] SODIUM NA-STAT LAB 2022-12-31 Ozaki, Bernarda [facility] 15:17:49 [facility] POTASSIUM-STAT LAB 2022-12-31 Ozaki, Bernarda [facility] 15:17:49 [facility] GLUCOSE-STAT LAB 2022-12-31 Ozaki, Bernarda [facility] 15:17:49 [facility] HGB/HCT (H&H) - STAT LAB 2022-12-31 Ozaki, Bernarda [facility] 15:17:49 [facility] BLOOD GAS, ARTERIAL 2022-12-31 Ozaki, Bernarda [facility] 14:37:18 [facility] CALCIUM, IONIZED 2022-12-31 Tila, Bernarda [facility] 14:37:18 [facility] PH, ARTERIAL 2022-12-31 Tila, Bernarda [facility] 14:37:18 [facility] SODIUM NA-STAT LAB 2022-12-31 Tila, Bernarda [facility] 14:37:18 [facility] POTASSIUM-STAT LAB 2022-12-31 Tila, Bernarda [facility] 14:37:18 [facility] GLUCOSE-STAT LAB 2022-12-31 Tila, Bernarda [facility] 14:37:18 [facility] HGB/HCT (H&H) - STAT LAB 2022-12-31 iTla, Bernarda [facility] 14:37:18 [facility] LAPAROTOMY, EXPLORATORY 2022-12-[address] [facility] 13:37:00 [facility] POCT-GLUCOSE METER 2022-12-[address]o [facility] 12:12:00 [facility] HEMODIALYSIS INPATIENT 2022-12-[address] [facility] 11:15:00 [facility] TYPE AND SCREEN, AUTOMATED 2022-12-31 Bernarda [facility]orno [facility] 11:13:00 [facility] POCT-GLUCOSE METER 2022-12-31 [address]o [facility] 10:28:00 [facility] RETICULOCYTE COUNT 2022-12-[address] [facility] 09:07:00 [facility] PT/APTT 2022-12-31 West, Anushka [facility] 09:07:00 [facility] FIBRINOGEN 2022-12-31 Kee Youmna A [facility] 09:07:00 [facility] CALCIUM, IONIZED 2022-12-31 Richardson, Rustam [facility] 09:07:00 [facility] CBC W/PLT COUNT & AUTO 2022-12-31 Richardson, Rustam [facility] DIFFERENTIAL 09:07:00 [facility] CBC W/PLT COUNT & AUTO 2022-12-31 Richardson, Rustam [facility] DIFFERENTIAL 09:07:00 [facility] (CELLAVISION MANUAL DIFF) 2022-12-31 Richardson, Rustam [facility] 09:07:00 [facility] POCT-GLUCOSE METER 2022-12-31 Ali, Hiba Tereso [facility] 06:16:00 [facility] LACTATE DEHYDROGENASE (LDH) 2022-12-31 Abel Sweetmna A [facility] 04:53:00 [facility] HAPTOGLOBIN 2022-12-31 Kee Youmna A [facility] 04:53:00 [facility] MAGNESIUM 2022-12-[address] [facility] 04:53:00 [facility] PHOSPHORUS 2022-12-31 West, Anushka [facility] 04:53:00 [facility] COMPREHENSIVE METABOLIC PANEL 2022-12-31 West Anushka [facility] 04:53:[address] [facility] [address] ABDOMEN/PELVIS WITHOUT IV 2022-12-31 Ali, Sheria Tereso [facility] CONTRAST 03:45:00 [facility] POCT-GLUCOSE METER 2022-12-30 Ali, Hiba Tereso [facility] 20:31:00 [facility] POCT-GLUCOSE METER 2022-12-30 Ali, Hiba Tereso [facility] 16:42:00 [facility] XR CHEST 1 VIEW PORTABLE / BEDSIDE 2022-12-30 Ali, Sheria Pascual ir [facility] 13:59:00 [facility] POCT-GLUCOSE METER 2022-12-30 Ali, Hiba Tereso [facility] 11:46:00 [facility] POCT-GLUCOSE METER 2022-12-[address] [facility] 06:09:00 [facility] PREPARE RBC 2022-12-[address] [facility] 05:21:00 [facility] XR ABDOMEN/KUB 1 VIEW PORTABLE 2022-12-[address] [facility] 04:00:00 [facility] LACTATE DEHYDROGENASE (LDH) 2022-12-30 Kee, Abelmna A [facility] 02:24:00 [facility] HAPTOGLOBIN 2022-12-30 Kee, Youmna A [facility] 02:24:00 [facility] RETICULOCYTE COUNT 2022-12-30 Kee, Youmna A [facility] 02:24:00 [facility] PT/APTT 2022-12-30 [place], Anushka [facility] 02:24:00 [facility] FIBRINOGEN 2022-12-30 Kee, Abelmna A [facility] 02:24:00 [facility] MAGNESIUM 2022-12-30 West, Anushka [facility] 02:24:00 [facility] PHOSPHORUS 2022-12-30 West, Anushka [facility] 02:24:00 [facility] COMPREHENSIVE METABOLIC PANEL 2022-12-30 West, Anushka [facility] 02:24:00 [facility] CBC (HEMOGRAM ONLY) 2022-12-[address] [facility] 02:24:00 [facility] POCT-GLUCOSE METER 2022-12-[address] [facility] 20:52:00 [facility] CREATINE KINASE (CK) 2022-12-[address] [facility] 19:36:00 [facility] G6PD, QUANTITATIVE 2022-12-[address] [facility] 19:36:00 [facility] HEMODIALYSIS INPATIENT 2022-12-[address] [facility] 18:58:10 [facility] POCT-GLUCOSE METER 2022-12-[address] [facility] 17:33:00 [facility] CBC (HEMOGRAM ONLY) 2022-12-[address] [facility] 17:29:00 [facility] XR CHEST 1 VIEW PORTABLE / BEDSIDE 2022-12-[address] [facility] 15:28:00 [facility] POCT-GLUCOSE METER 2022-12-[address] [facility] 11:36:00 [facility] XR ABDOMEN/KUB 1 VIEW PORTABLE 2022-12-29 Michoacano Parker[address] [facility] 11:24:00 [facility] POCT-GLUCOSE METER 2022-12-[address] [facility] 07:36:00 [facility] URINALYSIS WITH MICROSCOPIC IF 2022-12-29 Milad Bañuelos [facility] INDICATED 04:26:00 [facility] URINALYSIS MICROSCOPIC 2022-12-[address] [facility] 04:26:00 [facility] POCT-GLUCOSE METER 2022-12-[address] [facility] 03:43:00 [facility] LACTATE DEHYDROGENASE (LDH) 2022-12-29 Kee, Youmna A [facility] 03:35:00 [facility] HAPTOGLOBIN 2022-12-29 Kee, Youmna A [facility] 03:35:00 [facility] RETICULOCYTE COUNT 2022-12-29 Kee, Youmna A [facility] 03:35:00 [facility] PT/APTT 2022-12-29 West, Anushka [facility] 03:35:00 [facility] FIBRINOGEN 2022-12-29 Kee, Abelmna A [facility] 03:35:00 [facility] HEPATIC FUNCTION PANEL 2022-12-29 Juan, Jessee [facility] 03:35:00 [facility] BASIC METABOLIC PANEL 2022-12-[address] [facility] [facility] 03:35:00 [facility] MAGNESIUM 2022-12-29 West, Anushka [facility] 03:35:00 [facility] PHOSPHORUS 2022-12-29 West, Anushka [facility] 03:35:00 [facility] CBC W/PLT COUNT & AUTO 2022-12-29 Bijan, Twila [facility] DIFFERENTIAL 03:35:00 [facility] CALCIUM, IONIZED 2022-12-29 Richardson, Rustam [facility] 03:35:00 [facility] CBC W/PLT COUNT & AUTO 2022-12-29 Bijan, Twila [facility] DIFFERENTIAL 03:35:00 [facility] (CELLAVISION MANUAL DIFF) 2022-12-29 Bijan, Twila [facility] 03:35:00 [facility] POCT-GLUCOSE METER 2022-12-[address] [facility] 21:08:00 [facility] POCT-GLUCOSE METER 2022-12-[address] [facility] 14:26:00 [facility] POCT-GLUCOSE METER 2022-12-[address] [facility] 08:15:00 [facility] BLOOD CULTURE 2022-12-[address] [facility] 06:05:00 [facility] LACTATE DEHYDROGENASE (LDH) 2022-12-28 Kee, Youmna A [facility] 03:47:00 [facility] HAPTOGLOBIN 2022-12-28 Kee, Youmna A [facility] 03:47:00 [facility] RETICULOCYTE COUNT 2022-12-28 Kee, Youmna A [facility] 03:47:00 [facility] PT/APTT 2022-12-28 West, Anushka [facility] 03:47:00 [facility] FIBRINOGEN 2022-12-28 Kee, Youmna A [facility] 03:47:00 [facility] HEPATIC FUNCTION PANEL 2022-12-[address] [facility] 03:47:00 [facility] BASIC METABOLIC PANEL 2022-12-28 Milad Ba[facility]uelos [facility] 03:47:00 [facility] MAGNESIUM 2022-12-28 West, Anushka [facility] 03:47:00 [facility] PHOSPHORUS 2022-12-28 West, Anushka [facility] 03:47:00 [facility] CBC W/PLT COUNT & AUTO 2022-12-28 Bijan, Twila [facility] DIFFERENTIAL 03:47:00 [facility] CBC W/PLT COUNT & AUTO 2022-12-28 Bijan, Twila [facility] 03:47:00 [facility] (CELLAVISION MANUAL DIFF) 2022-12-28 Bijan, Twila [facility] 03:47:00 [facility] PREPARE LEUKO-REDUCED RBC 2022-12-[address] [facility] 23:54:00 [facility] POCT-GLUCOSE METER 2022-12-[address] [facility] 23:04:00 [facility] LIMITED 2D ECHOCARDIOGRAM 2022-12-27 Bijan, Twila [facility] 17:54:40 [facility] BLOOD CULTURE 2022-12-[address] [facility] 16:46:00 [facility] POCT-GLUCOSE METER 2022-12-[address] [facility] 16:40:00 [facility] HEMODIALYSIS INPATIENT 2022-12-[address] [facility] 14:57:57 [facility] CBC (HEMOGRAM ONLY) 2022-12-[address] [facility] 14:35:00 [facility] CALCIUM, IONIZED 2022-12-27 Bijan, Twila [facility] 14:35:00 [facility] US DOPPLER 2022-12-27 Bijan, Twila [facility] 14:05:00 [facility] US ABDOMEN LIMITED 2022-12-27 Bijan, Twila [facility] 14:05:00 [facility] POCT-GLUCOSE METER 2022-12-27 Safi, Javeryah [facility] 12:48:00 [facility] XR CHEST 1 VIEW PORTABLE / BEDSIDE 2022-12-27 Leobardo Chonjay Moyer chon [facility] 08:29:00 [facility] POCT-GLUCOSE METER 2022-12-27 Safi, Jacaitlinyah [facility] 08:23:00 [facility] POCT-GLUCOSE METER 2022-12-27 Safi, Javeryah [facility] 06:02:00 [facility] LACTATE DEHYDROGENASE (LDH) 2022-12-27 KeeAbel contrerasmna A [facility] 03:34:00 [facility] HAPTOGLOBIN 2022-12-27 KeeAbel contrerasmna A [facility] 03:34:00 [facility] RETICULOCYTE COUNT 2022-12-27 Kee Youmna A [facility] 03:34:00 [facility] PT/APTT 2022-12-[address] [facility] 03:34:00 [facility] FIBRINOGEN 2022-12-27 Norma Sweeta A [facility] 03:34:00 [facility] HEPATIC FUNCTION PANEL 2022-12-[address] [facility] 03:34:00 [facility] BASIC METABOLIC PANEL 2022-12-27 Milad Ba[facility]uelos [facility] 03:34:00 [facility] MAGNESIUM 2022-12-[address] [facility] 03:34:00 [facility] PHOSPHORUS 2022-12-27 West, Anushka [facility] 03:34:00 [facility] CBC W/PLT COUNT & AUTO 2022-12-[address] [facility] DIFFERENTIAL 03:34:00 [facility] LIPASE 2022-12-[address] [facility] 03:34:00 [facility] CBC W/PLT COUNT & AUTO 2022-12-[address] [facility] DIFFERENTIAL 03:34:00 [facility] (CELLAVISION MANUAL DIFF) 2022-12-[address] [facility] 03:34:00 [facility] POCT-GLUCOSE METER 2022-12-[address] [facility] 00:02:00 [facility] POCT-GLUCOSE METER 2022-12-26 Melloi, Jacaitlinyah [facility] 20:47:00 [facility] CBC (HEMOGRAM ONLY) 2022-12-[address] [facility] 19:33:00 [facility] C. DIFFICILE GDH TOXIN 2022-12-[address] [facility] 16:12:00 [facility] GI PATHOGEN PROFILE BY PCR 2022-12-[address] [facility] 16:12:00 [facility] TRANSFUSE LEUKO-REDUCED RED BLOOD 2022-12-[address] [facility] CELLS 15:15:00 [facility] HEMODIALYSIS INPATIENT 2022-12-[address] [facility] 13:53:02 [facility] POCT-GLUCOSE METER 2022-12-26 Safi, Javeryah [facility] 13:49:00 [facility] MR ABDOMEN WITH & WITHOUT IV 2022-12-26 Anudu, Azubuogu [facility] CONTRAST 12:43:00 [facility] CBC (HEMOGRAM ONLY) 2022-12-[address] [facility] 10:35:00 [facility] POCT-GLUCOSE METER 2022-12-[address] [facility] 10:07:00 [facility] ANTIBODY IDENTIFICATION 2022-12-[address] [facility] 09:58:00 [facility] POCT-GLUCOSE METER 2022-12-[address] [facility] 06:34:00 [facility] XR CHEST 1 VIEW PORTABLE / BEDSIDE 2022-12-26 Chon Orellana Moyer chon [facility] 05:16:00 [facility] TYPE AND SCREEN, AUTOMATED 2022-12-26 Sam [facility] 04:06:00 [facility] DIRECT AHG (ARNOLD)/DIRECT SONDRA 2022-12-[address] [facility] 04:06:00 [facility] CBC W/PLT COUNT & AUTO 2022-12-[address] [facility] DIFFERENTIAL 03:06:00 [facility] CBC W/PLT COUNT & AUTO 2022-12-[address] [facility] DIFFERENTIAL 03:06:00 [facility] BLOOD GAS, ARTERIAL 2022-12-26 Juan, Jessee [facility] 02:34:00 [facility] LACTATE DEHYDROGENASE (LDH) 2022-12-26 Kee, Youmna A [facility] 02:25:00 [facility] HAPTOGLOBIN 2022-12-26 Kee, Youmna A [facility] 02:25:00 [facility] RETICULOCYTE COUNT 2022-12-26 Kee, Youmna A [facility] 02:25:00 [facility] PT/APTT 2022-12-[address] [facility] 02:25:00 [facility] FIBRINOGEN 2022-12-26 Kee, Youmna A [facility] 02:25:00 [facility] CBC W/PLT COUNT & AUTO 2022-12-26 Juan, Jessee [facility] 02:25:00 [facility] HEPATIC FUNCTION PANEL 2022-12-26 Juan, Jessee [facility] 02:25:00 [facility] BASIC METABOLIC PANEL 2022-12-26 Milad Ba[facility]uelos [facility] 02:25:00 [facility] MAGNESIUM 2022-12-[address] [facility] 02:25:00 [facility] PHOSPHORUS 2022-12-26 West, Anushka [facility] 02:25:00 [facility] CBC W/PLT COUNT & AUTO 2022-12-26 Juan, Jessee [facility] DIFFERENTIAL 02:25:00 [facility] (CELLAVISION MANUAL DIFF) 2022-12-26 Juan, Jessee [facility] 02:25:00 [facility] POCT-GLUCOSE METER 2022-12-26 Safi, Javeryah [facility] 01:00:00 [facility] POCT-GLUCOSE METER 2022-12-25 Safi, Javeryah [facility] 22:36:00 [facility] CBC (HEMOGRAM ONLY) 2022-12-25 Juan, Jessee [facility] 18:42:00 [facility] LACTIC ACID, ARTERIAL 2022-12-25 Andres, Sara [facility] 18:42:00 [facility] HEMODIALYSIS INPATIENT 2022-12-[address] [facility] 18:27:00 [facility] POCT-GLUCOSE METER 2022-12-25 Safi, Javeryah [facility] 16:45:00 [facility] CBC (HEMOGRAM ONLY) 2022-12-25 Juan, Jessee [facility] 12:18:00 [facility] BLOOD CULTURE 2022-12-25 Andres, Sara [facility] 11:21:00 [facility] POCT-GLUCOSE METER 2022-12-25 Safi, Javeryah [facility] 10:12:00 [facility] POCT-GLUCOSE METER 2022-12-25 Safi, Javeryah [facility] 05:23:00 [facility] LACTATE DEHYDROGENASE (LDH) 2022-12-[address] [facility] 03:02:00 [facility] HAPTOGLOBIN 2022-12-25 Kee, Youmna A [facility] 03:02:00 [facility] RETICULOCYTE COUNT 2022-12-25 Kee Youmna A [facility] 03:02:00 [facility] PT/APTT 2022-12-[address] [facility] 03:02:00 [facility] FIBRINOGEN 2022-12-25 KeePete contreras A [facility] 03:02:00 [facility] CBC W/PLT COUNT & AUTO 2022-12-25 Juan, Jessee [facility] DIFFERENTIAL 03:02:00 [facility] BLOOD GAS, ARTERIAL 2022-12-25 Juan, Jessee [facility] 03:02:00 [facility] HEPATIC FUNCTION PANEL 2022-12-25 Juan, Jessee [facility] 03:02:00 [facility] VANCOMYCIN LEVEL, RANDOM 2022-12-[address] [facility] 03:02:00 [facility] BASIC METABOLIC PANEL 2022-12-25 Egland, Milad [facility] 03:02:00 [facility] MAGNESIUM 2022-12-25 Egland, Milad [facility] 03:02:00 [facility] PHOSPHORUS 2022-12-25 Egland, Milad [facility] 03:02:00 [facility] POCT-GLUCOSE METER 2022-12-[address] [facility] 03:02:00 [facility] CBC W/PLT COUNT & AUTO 2022-12-25 Juan, Jessee [facility] DIFFERENTIAL 03:02:00 [facility] (CELLAVISION MANUAL DIFF) 2022-12-25 Juan, Jessee [facility] 03:02:00 [facility] XR CHEST 1 VIEW PORTABLE / BEDSIDE 2022-12-[address] [facility] 01:32:00 [facility] POCT-GLUCOSE METER 2022-12-[address] [facility] 23:36:00 [facility] POCT-GLUCOSE METER 2022-12-24 Safi, Javeryah [facility] 21:10:00 [facility] CBC (HEMOGRAM ONLY) 2022-12-24 Juan, Jessee [facility] 20:11:00 [facility] ARTERIAL DOPPLER LEGS BILATERAL 2022-12-[address] [facility] 19:45:[address] ABDOMEN/PELVIS WITHOUT IV 2022-12-[address] [facility] CONTRAST 18:36:00 [facility] POCT-GLUCOSE METER 2022-12-24 Safi, Javeryah [facility] 17:54:00 [facility] CBC (HEMOGRAM ONLY) 2022-12-[address] [facility] 12:06:00 [facility] POCT-GLUCOSE METER 2022-12-24 Safi, Jacath [facility] 09:51:00 [facility] POCT-GLUCOSE METER 2022-12-24 Safi, Javeryah [facility] 05:24:00 [facility] XR ABDOMEN/KUB 1 VIEW PORTABLE 2022-12-[address] [facility] 04:36:00 [facility] BASIC METABOLIC PANEL 2022-12-[address] [facility] 02:32:00 [facility] CALCIUM, IONIZED 2022-12-24 Richardson, Rustam [facility] 02:32:00 [facility] PHOSPHORUS 2022-12-24 Richardson, Rustam [facility] 02:32:00 [facility] MAGNESIUM 2022-12-24 Richardson, Rustam [facility] 02:32:00 [facility] LACTATE DEHYDROGENASE (LDH) 2022-12-24 Kee Youmna A [facility] 02:32:00 [facility] HAPTOGLOBIN 2022-12-24 Kee, Youmna A [facility] 02:32:00 [facility] RETICULOCYTE COUNT 2022-12-24 Kee, Youmna A [facility] 02:32:00 [facility] PT/APTT 2022-12-24 West, Anushka [facility] 02:32:00 [facility] FIBRINOGEN 2022-12-24 Kee, Youmna A [facility] 02:32:00 [facility] CBC W/PLT COUNT & AUTO 2022-12-24 Juan, Jessee [facility] DIFFERENTIAL 02:32:00 [facility] BLOOD GAS, ARTERIAL 2022-12-24 Juan, Jessee [facility] 02:32:00 [facility] HEPATIC FUNCTION PANEL 2022-12-24 Juan, Jessee [facility] 02:32:00 [facility] CBC W/PLT COUNT & AUTO 2022-12-24 Juan, Jessee [facility] DIFFERENTIAL 02:32:00 [facility] (CELLAVISION MANUAL DIFF) 2022-12-24 Juan, Jessee [facility] 02:32:00 [facility] XR CHEST 1 VIEW PORTABLE / BEDSIDE 2022-12-[address] [facility] 00:24:00 [facility] POCT-GLUCOSE METER 2022-12-24 Safi, Javeryah [facility] 00:12:00 [facility] BASIC METABOLIC PANEL 2022-12-23 Richardson, Rustam [facility] 22:16:00 [facility] CALCIUM, IONIZED 2022-12-23 Richardson, Rustam [facility] 22:16:00 [facility] PHOSPHORUS 2022-12-23 Richardson, Rustam [facility] 22:16:00 [facility] MAGNESIUM 2022-12-23 Richardson, Rustam [facility] 22:16:00 [facility] CBC (HEMOGRAM ONLY) 2022-12-23 Juan, Jessee [facility] 19:32:00 [facility] POCT-GLUCOSE METER 2022-12-23 Safi, Javeryah [facility] 18:07:00 [facility] POCT-GLUCOSE METER 2022-12-23 Safi, Javeryah [facility] 11:29:00 [facility] CALCIUM, IONIZED 2022-12-23 Juan, Jessee [facility] 11:18:00 [facility] CBC (HEMOGRAM ONLY) 2022-12-23 Juan, [place] [facility] 11:18:00 [facility] MAGNESIUM 2022-12-23 Juan, [place] [facility] 11:18:00 [facility] PHOSPHORUS 2022-12-23 Juan, [place] [facility] 11:18:00 [facility] BASIC METABOLIC PANEL 2022-12-[address] [facility] 11:18:00 [facility] XR CHEST 1 VIEW PORTABLE / BEDSIDE 2022-12-[address] [facility] 09:17:00 [facility] PREPARE RBC 2022-12-[address] [facility] 07:18:00 [facility] PREPARE LEUKO-REDUCED RBC 2022-12-[address] [facility] 07:18:00 [facility] POCT-GLUCOSE METER 2022-12-[address] [facility] 05:36:00 [facility] BLOOD CULTURE 2022-12-23 Leobardo Chon Delcid [facility] 04:07:00 [facility] BLOOD CULTURE IDENTIFICATION PANEL 2022-12-23 [address] [facility] 04:07:00 [facility] LACTATE DEHYDROGENASE (LDH) 2022-12-23 Kee Youmna A [facility] 03:22:00 [facility] HAPTOGLOBIN 2022-12-23 Kee, Youmna A [facility] 03:22:00 [facility] RETICULOCYTE COUNT 2022-12-23 Kee, Youmna A [facility] 03:22:00 [facility] PT/APTT 2022-12-23 West, Anushka [facility] 03:22:00 [facility] FIBRINOGEN 2022-12-23 Kee, Youmna A [facility] 03:22:00 [facility] [facility] CALCIUM, IONIZED 2022-12-23 Juan, Jessee [facility] 03:22:00 [facility] CBC W/PLT COUNT & AUTO 2022-12-23 Juan, Jessee [facility] DIFFERENTIAL 03:22:00 [facility] MAGNESIUM 2022-12-23 Juan, Jessee [facility] 03:22:00 [facility] PHOSPHORUS 2022-12-23 Juan, Jessee [facility] 03:22:00 [facility] BLOOD GAS, ARTERIAL 2022-12-23 Juan, Jessee [facility] 03:22:00 [facility] HEPATIC FUNCTION PANEL 2022-12-23 Juan, Jessee [facility] 03:22:00 [facility] BASIC METABOLIC PANEL 2022-12-[address] [facility] 03:22:00 [facility] CBC W/PLT COUNT & AUTO 2022-12-23 Juan, Jessee [facility] DIFFERENTIAL 03:22:00 [facility] (CELLAVISION MANUAL DIFF) 2022-12-23 Juan, Jessee [facility] 03:22:00 [facility] POCT-GLUCOSE METER 2022-12-23 Safi, Javeryah [facility] 03:19:00 [facility] POCT-GLUCOSE METER 2022-12-23 Safi, Javeryah [facility] 01:11:00 [facility] POCT-GLUCOSE METER 2022-12-22 Safi, Javeryah [facility] 21:53:00 [facility] CALCIUM, IONIZED 2022-12-22 Juan, Jessee [facility] 19:56:00 [facility] CBC (HEMOGRAM ONLY) 2022-12-22 Juan, Jessee [facility] 19:56:00 [facility] MAGNESIUM 2022-12-22 Juan, Jessee [facility] 19:56:00 [facility] PHOSPHORUS 2022-12-22 Juan, Jessee [facility] 19:56:00 [facility] BASIC METABOLIC PANEL 2022-12-22 Ch[address] [facility] 19:56:00 [facility] BLOOD CULTURE 2022-12-22 Leobardo, Chon Bhavin [facility] 19:08:00 [facility] POCT-GLUCOSE METER 2022-12-22 Safi, Javeryah [facility] 17:26:00 [facility] CALCIUM, IONIZED 2022-12-22 Juan, Jessee [facility] 12:40:00 [facility] CBC (HEMOGRAM ONLY) 2022-12-22 Juan, Jessee [facility] 12:40:00 [facility] MAGNESIUM 2022-12-22 Juan, Jessee [facility] 12:40:00 [facility] PHOSPHORUS 2022-12-22 Juan, Jessee [facility] 12:40:00 [facility] BASIC METABOLIC PANEL 2022-12-22 Juan, [facility]see [facility] 12:40:00 [facility] BASIC METABOLIC PANEL 2022-12-[address] [facility] 08:25:00 [facility] 2022-12-[address] [facility] 06:51:00 [facility] POCT-GLUCOSE METER 2022-12-[address] [facility] 05:25:00 [facility] BLOOD GAS, ARTERIAL 2022-12-[address] [facility] 04:00:00 [facility] LACTATE DEHYDROGENASE (LDH) 2022-12-22 Kee, Youmna A [facility] 03:59:00 [facility] HAPTOGLOBIN 2022-12-22 Kee, Youmna A [facility] 03:59:00 [facility] RETICULOCYTE COUNT 2022-12-22 Kee, Youmna A [facility] 03:59:00 [facility] PT/APTT 2022-12-22 West, Anushka [facility] 03:59:00 [facility] FIBRINOGEN 2022-12-22 Kee, Youmna A [facility] 03:59:00 [facility] CALCIUM, IONIZED 2022-12-22 Juan, Jessee [facility] 03:59:00 [facility] CBC W/PLT COUNT & AUTO 2022-12-22 Juan, Jessee [facility] DIFFERENTIAL 03:59:00 [facility] HEPATIC FUNCTION PANEL 2022-12-22 Juan, Jessee [facility] 03:59:00 [facility] MAGNESIUM 2022-12-22 Juan, Jessee [facility] 03:59:00 [facility] PHOSPHORUS 2022-12-22 Juan, Jessee [facility] 03:59:00 [facility] BASIC METABOLIC PANEL 2022-12-[address] [facility] 03:59:00 [facility] VANCOMYCIN LEVEL, RANDOM 2022-12-22 Vallabevie, Lea I [facility] 03:59:00 [facility] FERRITIN 2022-12-[address] [facility] 03:59:00 [facility] CBC W/PLT COUNT & AUTO 2022-12-22 Juan, Jessee [facility] DIFFERENTIAL 03:59:00 [facility] (CELLAVISION MANUAL DIFF) 2022-12-22 Juan, Jessee [facility] 03:59:00 [facility] XR CHEST 1 VIEW PORTABLE / BEDSIDE 2022-12-[address] [facility] 01:27:00 [facility] BASIC METABOLIC PANEL 2022-12-[address] [facility] 00:09:00 [facility] POCT-GLUCOSE METER 2022-12-21 Safi, Javeryah [facility] 23:33:00 [facility] CALCIUM, IONIZED 2022-12-21 Juan, Jessee [facility] 20:09:00 [facility] CBC (HEMOGRAM ONLY) 2022-12-21 Juan, Jessee [facility] 20:09:00 [facility] HEPATIC FUNCTION PANEL 2022-12-21 Juan, Jessee [facility] 20:09:00 [facility] MAGNESIUM 2022-12-21 Juan, Jessee [facility] 20:09:00 [facility] PHOSPHORUS 2022-12-21 Juan, Jessee [facility] 20:09:00 [facility] BASIC METABOLIC PANEL 2022-12-[address] [facility] 20:09:00 [facility] FIBRINOGEN 2022-12-21 Bilal, Mohammad [facility] 20:09:00 [facility] POCT-GLUCOSE METER 2022-12-21 Safi, Javeryah [facility] 17:58:00 [facility] BLOOD GAS, ARTERIAL 2022-12-[address] [facility] 16:15:00 [facility] BASIC METABOLIC PANEL 2022-12-21 Safi, Javeryah [facility] 16:15:00 [facility] AMMONIA 2022-12-21 Bilal, Mohammad [facility] 14:00:00 [facility] CALCIUM, IONIZED 2022-12-21 Juan, Jessee [facility] 12:03:00 [facility] CBC (HEMOGRAM ONLY) 2022-12-21 Juan, Jessee [facility] 12:03:00 [facility] MAGNESIUM 2022-12-21 Juan, Jessee [facility] 12:03:00 [facility] PHOSPHORUS 2022-12-21 Juan, Jessee [facility] 12:03:00 [facility] BASIC METABOLIC PANEL 2022-12-21 Portillo, Rock B [facility] 12:03:00 [facility] BASIC METABOLIC PANEL 2022-12-21 Portillo, Rock B [facility] 08:09:00 [facility] BLOOD GAS, ARTERIAL 2022-12-[address] [facility] 03:51:00 [facility] LACTATE DEHYDROGENASE (LDH) 2022-12-21 Kee, Youmna A [facility] 03:49:00 [facility] HAPTOGLOBIN 2022-12-21 Kee, Youmna A [facility] 03:49:00 [facility] RETICULOCYTE COUNT 2022-12-21 Kee, Youmna A [facility] 03:49:00 [facility] PT/APTT 2022-12-21 West, Anushka [facility] 03:49:00 [facility] FIBRINOGEN 2022-12-21 Kee, Youmna A [facility] 03:49:00 [facility] CALCIUM, IONIZED 2022-12-21 Juan, Jessee [facility] 03:49:00 [facility] CBC W/PLT COUNT & AUTO 2022-12-21 Juan, Jessee [facility] DIFFERENTIAL 03:49:00 [facility] HEPATIC FUNCTION PANEL 2022-12-21 Juan, Jessee [facility] 03:49:00 [facility] MAGNESIUM 2022-12-21 Juan, Jessee [facility] 03:49:00 [facility] PHOSPHORUS 2022-12-21 Juan, Jessee [facility] 03:49:00 [facility] BASIC METABOLIC PANEL 2022-12-21 Portillo, Rock B [facility] 03:49:00 [facility] CBC W/PLT COUNT & AUTO 2022-12-21 Juan, Jessee [facility] DIFFERENTIAL 03:49:00 [facility] (CELLAVISION MANUAL DIFF) 2022-12-21 Juan, Jessee [facility] 03:49:00 [facility] PREPARE RBC 2022-12-[address] [facility] 02:58:00 [facility] XR CHEST 1 VIEW PORTABLE / BEDSIDE 2022-12-[address] [facility] 01:43:00 [facility] BLOOD GAS, ARTERIAL 2022-12-20 Juan, Jessee [facility] 23:59:00 [facility] POCT-GLUCOSE METER 2022-12-20 Safi, Paolah [facility] 23:58:00 [facility] CBC (HEMOGRAM ONLY) 2022-12-[address] [facility] 21:18:00 [facility] CALCIUM, IONIZED 2022-12-20 Juan, Jessee [facility] 20:17:00 [facility] CBC (HEMOGRAM ONLY) 2022-12-20 Juan, Jessee [facility] 20:17:00 [facility] HEPATIC FUNCTION PANEL 2022-12-20 Juan, Jessee [facility] 20:17:00 [facility] MAGNESIUM 2022-12-20 Juan, Jessee [facility] 20:17:00 [facility] PHOSPHORUS 2022-12-20 Juan, Jessee [facility] 20:17:00 [facility] BLOOD GAS, ARTERIAL 2022-12-20 Juan, Jessee [facility] 20:17:00 [facility] BASIC METABOLIC PANEL 2022-12-[address] [facility] 20:17:00 [facility] POCT-GLUCOSE METER 2022-12-20 Safi, Paolah [facility] 20:15:00 [facility] BASIC METABOLIC PANEL 2022-12-[address] [facility] 16:00:00 [facility] BLOOD GAS, ARTERIAL 2022-12-20 Juan, Jessee [facility] 15:55:00 [facility] ARTERIAL DOPPLER LEGS BILATERAL 2022-12-[address] [facility] 14:24:00 [facility] ANTIBODY IDENTIFICATION 2022-12-20 Rock Portillo Cynthia [facility] 11:57:00 [facility] BLOOD GAS, ARTERIAL 2022-12-20 Juan, Jessee [facility] 11:34:00 [facility] CALCIUM, IONIZED 2022-12-20 Juan, Jessee [facility] 11:33:00 [facility] CBC (HEMOGRAM ONLY) 2022-12-20 Juan, Jessee [facility] 11:33:00 [facility] MAGNESIUM 2022-12-20 Juan, Jessee [facility] 11:33:00 [facility] PHOSPHORUS 2022-12-20 Juan, Jessee [facility] 11:33:00 [facility] BASIC METABOLIC PANEL 2022-12-[address] [facility] 11:33:00 [facility] BASIC METABOLIC PANEL 2022-12-20 Portillo, Rock B [facility] 07:34:00 [facility] BLOOD GAS, ARTERIAL 2022-12-20 Juan, Jessee [facility] 07:32:00 [facility] POCT-GLUCOSE METER 2022-12-[address] [facility] 07:32:00 [facility] REFERRAL- REQUEST/RESPONSE 2022-12-20 Doctor Lee rsity of 05:01:00 Unassigned, No [facility] POCT-GLUCOSE METER 2022-12-[address] [facility] 03:34:00 [facility] LACTATE DEHYDROGENASE (LDH) 2022-12-20 Norma Sweeta A [facility] 03:31:00 [facility] HAPTOGLOBIN 2022-12-20 Kee Youmna A [facility] 03:31:00 [facility] RETICULOCYTE COUNT 2022-12-20 Abel Sweetmna A [facility] 03:31:00 [facility] PT/APTT 2022-12-20 West, Anushka [facility] 03:31:00 [facility] FIBRINOGEN 2022-12-20 Kee, Youmna A [facility] 03:31:00 [facility] CALCIUM, IONIZED 2022-12-20 Juan, Jessee [facility] 03:31:00 [facility] CBC W/PLT COUNT & AUTO 2022-12-20 Juan, Jessee [facility]FFER[facility] 03:31:00 [facility] HEPATIC FUNCTION PANEL 2022-12-20 Juan, Jessee [facility] 03:31:00 [facility] MAGNESIUM 2022-12-20 Juan, Jessee [facility] 03:31:00 [facility] PHOSPHORUS 2022-12-20 Juan, Jessee [facility] 03:31:00 [facility] BLOOD GAS, ARTERIAL 2022-12-20 Juan, Jessee [facility] 03:31:00 [facility] BASIC METABOLIC PANEL 2022-12-20 Portillo, Rock B [facility] 03:31:00 [facility] CBC W/PLT COUNT & AUTO 2022-12-20 Juan, Jessee [facility] DIFFERENTIAL 03:31:00 [facility] (CELLAVISION MANUAL DIFF) 2022-12-20 Juan, Jessee [facility] 03:31:00 [facility] XR CHEST 1 VIEW PORTABLE / BEDSIDE 2022-12-20 Rock Portillo B [facility] 02:31:00 [facility] BLOOD GAS, ARTERIAL 2022-12-20 Juan, Jessee [facility] 00:04:00 [facility] BASIC METABOLIC PANEL 2022-12-[address] [facility] 00:04:00 [facility] POCT-GLUCOSE METER 2022-12-19 Rock Portillo B [facility] 23:55:00 [facility] PREPARE LEUKO-REDUCED RBC 2022-12-19 Sahu, Azar [facility] 23:54:00 [facility] CALCIUM, IONIZED 2022-12-19 Juan, Jessee [facility] 20:10:00 [facility] CBC (HEMOGRAM ONLY) 2022-12-19 Juan, Jessee [facility] 20:10:00 [facility] HEPATIC FUNCTION PANEL 2022-12-19 Juan, Jessee [facility] 20:10:00 [facility] MAGNESIUM 2022-12-19 Juan, Jessee [facility] 20:10:00 [facility] PHOSPHORUS 2022-12-19 Juan, Jessee [facility] 20:10:00 [facility] BLOOD GAS, ARTERIAL 2022-12-19 Juan, Jessee [facility] 20:10:00 [facility] BASIC METABOLIC PANEL 2022-12-19 Portillo, Rock B [facility] 20:10:00 [facility] POCT-GLUCOSE METER 2022-12-[address] [facility] 20:09:00 [facility] BLOOD GAS, ARTERIAL 2022-12-19 Juan, Jessee [facility] 16:02:00 [facility] POCT-GLUCOSE METER 2022-12-[address] [facility] 16:02:00 [facility] MISCELLANEOUS LAB ORDER 2022-12-19 Juan, Jessee [facility] 15:59:00 [facility] BASIC METABOLIC PANEL 2022-12-[address] [facility] 15:59:00 [facility] TRANSFUSE LEUKO-REDUCED RED BLOOD 2022-12-[address] [facility] CELLS 15:09:00 [facility] HC LAB HIV-1 AG W/HIV-1&2 AB 2022-12-[address] [facility] 14:27:00 [facility] MISCELLANEOUS LAB ORDER 2022-12-[address] [facility] 13:09:00 [facility] HEPATITIS C PCR, QUANTITATIVE 2022-12-19 Filipe [address] [facility] 13:09:00 [facility] TYPE AND SCREEN, AUTOMATED 2022-12-19 Jessie Chapman [facility] 13:09:00 [facility] DIRECT AHG (ARNOLD)/DIRECT SONDRA 2022-12-19 Jessie Chapman [facility] 13:09:00 [facility] CALCIUM, IONIZED 2022-12-19 Juan, Jessee [facility] 11:50:00 [facility] CBC (HEMOGRAM ONLY) 2022-12-19 Juan, Jessee [facility] 11:50:00 [facility] MAGNESIUM 2022-12-19 Juan, Jessee [facility] 11:50:00 [facility] PHOSPHORUS 2022-12-19 Juan, Jessee [facility] 11:50:00 [facility] BLOOD GAS, ARTERIAL 2022-12-19 Juan, Jessee [facility] 11:50:00 [facility] BASIC METABOLIC PANEL 2022-12-[address] [facility] 11:50:00 [facility] POCT-GLUCOSE METER 2022-12-19 Rock Portillo B [facility] 11:24:00 [facility] HEPATITIS B PCR, QUANTITATIVE 2022-12-19 Anudu, Azubuogu [facility] 10:46:00 [facility] XR CHEST 1 VIEW PORTABLE / BEDSIDE 2022-12-19 Lopez Portillohu B [facility] 10:30:00 [facility] 2022-12-[address] [facility] 08:42:00 [facility] BLOOD GAS, ARTERIAL 2022-12-19 Juan, Jessee [facility] 08:01:00 [facility] BASIC METABOLIC PANEL 2022-12-[address] [facility] 08:00:00 [facility] POCT-GLUCOSE METER 2022-12-19 Rock Portillo B [facility] 07:58:00 [facility] POCT-GLUCOSE METER 2022-12-19 Portillo, Rock B [facility] 02:35:00 [facility] BLOOD GAS, ARTERIAL 2022-12-19 Juan, Jessee [facility] 02:30:00 [facility] VANCOMYCIN LEVEL, TROUGH 2022-12-[address] [facility] 02:29:00 [facility] HEPATITIS B CORE ANTIBODY, TOTAL 2022-12-19 Anudu, Azubuogu [facility] 02:26:00 [facility] HEPATITIS B SURFACE ANTIBODY 2022-12-19 Anudu, Azubuogu [facility] 02:26:00 [facility] HEPATITIS A ANTIBODY, IGG 2022-12-19 Anudu, Azubuogu [facility] 02:26:00 [facility] IRON, TIBC, % SAT. (WITHOUT 2022-12-19 Anudu, Azubuogu [facility] FERRITIN) 02:26:00 [facility] LACTATE DEHYDROGENASE (LDH) 2022-12-19 Norma Sweeta A [facility] 02:26:00 [facility] HAPTOGLOBIN 2022-12-19 Abel Sweetmna A [facility] 02:26:00 [facility] RETICULOCYTE COUNT 2022-12-[address] [facility] 02:26:00 [facility] PT/APTT 2022-12-[address] [facility] 02:26:00 [facility] FIBRINOGEN 2022-12-[address] [facility] 02:26:00 [facility] CALCIUM, IONIZED 2022-12-19 Juan, Jessee [facility] 02:26:00 [facility] CBC W/PLT COUNT & AUTO 2022-12-19 Juan, Jessee [facility] DIFFERENTIAL 02:26:00 [facility] HEPATIC FUNCTION PANEL 2022-12-19 Juan, Jessee [facility] 02:26:00 [facility] MAGNESIUM 2022-12-19 Juan, Jessee [facility] 02:26:00 [facility] PHOSPHORUS 2022-12-19 Juan, Jessee [facility] 02:26:00 [facility] BASIC METABOLIC PANEL 2022-12-[address] [facility] 02:26:00 [facility] CBC W/PLT COUNT & AUTO 2022-12-19 Juan, Jessee [facility] DIFFERENTIAL 02:26:00 [facility] (MANUAL DIFFERENTIAL) 2022-12-[address] [facility] 02:26:00 [facility] BASIC METABOLIC PANEL 2022-12-[address] [facility] 00:12:00 [facility] POCT-GLUCOSE METER 2022-12-[address] [facility] 00:11:00 [facility] PREPARE CRYOPRECIPITATE 2022-12-18 Cesaronye, Gene [facility] 23:54:00 [facility] PREPARE PLASMA 2022-12-18 Otuonye, Gene [facility] 23:54:00 [facility] POCT-GLUCOSE METER 2022-12-18 Rock Portillo B [facility] 20:05:00 [facility] LACTIC ACID, ARTERIAL 2022-12-[address] [facility] 20:01:00 [facility] CALCIUM, IONIZED 2022-12-18 Juan, Jessee [facility] 20:01:00 [facility] CBC (HEMOGRAM ONLY) 2022-12-18 Juan, Jessee [facility] 20:01:00 [facility] HEPATIC FUNCTION PANEL 2022-12-18 Juna, Jessee [facility] 20:01:00 [facility] MAGNESIUM 2022-12-18 Juan, Jessee [facility] 20:01:00 [facility] PHOSPHORUS 2022-12-18 Juan, Jessee [facility] 20:01:00 [facility] BLOOD GAS, ARTERIAL 2022-12-18 Juan, Jessee [facility] 20:01:00 [facility] HEPATITIS E ABS IGG/IGM EIA 2022-12-18 Anudu, Azubuogu [facility] 18:35:00 [facility] LACTIC ACID, ARTERIAL 2022-12-[address] [facility] 16:13:00 [facility] BLOOD GAS, ARTERIAL 2022-12-18 Juan, Jessee [facility] 16:13:00 [facility] BASIC METABOLIC PANEL 2022-12-18 Richardson, Rustam [facility] 16:13:00 [facility] EBV VIRAL LOAD 2022-12-18 Anudu, Azubuogu [facility] 16:13:00 [facility] CMV PCR, QUANTITATIVE 2022-12-18 Anudu, Azubuogu [facility] 16:13:00 [facility] CERULOPLASMIN 2022-12-18 Anudu, Azubuogu [facility] 16:13:00 [facility] FACTOR 5 ACTIVITY (BLEEDING RISK) 2022-12-18 Anudu, Azubuog u [facility] 16:13:00 [facility] HEREDITARY HEMOCHROMATOSIS 2022-12-18 Anudu, [facility]ogu [facility] 16:13:00 [facility] ACETAMINOPHEN LEVEL 2022-12-18 Anudu, Azubuogu [facility] 16:13:00 [facility] XR CHEST 1 VIEW PORTABLE / BEDSIDE 2022-12-[address] [facility] 14:36:00 [facility] DOUBLE-STRANDED DNA (DSDNA) 2022-12-18 Portillo, [facility] Cynthia [facility] ANTIBODY 12:08:00 [facility] LACTIC ACID, ARTERIAL 2022-12-[address] [facility] 12:06:00 [facility] CALCIUM, IONIZED 2022-12-18 Juan, Jessee [facility] 12:06:00 [facility] CBC (HEMOGRAM ONLY) 2022-12-18 Juan, Jessee [facility] 12:06:00 [facility] MAGNESIUM 2022-12-18 Juan, Jessee [facility] 12:06:00 [facility] PHOSPHORUS 2022-12-18 Juan, Jessee [facility] 12:06:00 [facility] BLOOD GAS, ARTERIAL 2022-12-18 Juan, Jessee [facility] 12:06:00 [facility] BASIC METABOLIC PANEL 2022-12-18 Brain Rustam [facility] 12:06:00 [facility] AMMONIA 2022-12-18 Portillo, [facility] Cynthia [facility] 12:06:00 [facility] ACTIN (SMOOTH MUSCLE) ANTIBODY, 2022-12-18 Portillo, [facility] IGG 12:06:00 [facility] LIVER-KIDNEY MICROSOME AB 2022-12-18 Portillo, [facility] 12:06:00 [facility] SOLUBLE LIVER ANTIGEN (SLA) 2022-12-18 Portillo, [facility] 12:06:00 [facility] ANTI-DOUGLAS AB (VASCULAR NEUROLOGIST, [place]) 2022-12-18 Portillo, [facility] 12:06:00 [facility] MITOCHONDRIAL AB SCREEN 2022-12-18 Portillo, [facility] 12:06:00 [facility] MITOCHONDRIAL AB TITER 2022-12-18 Portillo, [facility] 12:06:00 [facility] XR CHEST 1 VIEW PORTABLE / BEDSIDE 2022-12-18 Portillo, [facility] B [facility] 10:49:00 [facility] HEPATITIS PANEL, ACUTE 2022-12-18 Juan, Jessee [facility] 10:22:00 [facility] ANTI-NUCLEAR ANTIBODY (COLTON) 2022-12-18 Portillo, Rock Marie [facility] 10:22:00 [facility] IMMUNOGLOBULIN G (IGG) 2022-12-18 Portillo, Rock Marie [facility] 10:22:00 [facility] LACTIC ACID, ARTERIAL 2022-12-[address] [facility] 07:58:00 [facility] BLOOD GAS, ARTERIAL 2022-12-18 Juan, Jessee [facility] 07:58:00 [facility] BASIC METABOLIC PANEL 2022-12-[address] [facility] 07:58:00 [facility] PREPARE LEUKO-REDUCED RBC 2022-12-18 Egland, Milad [facility] 06:52:00 [facility] PREPARE RBC 2022-12-18 Egland, Milad [facility] 06:52:00 [facility] POCT-GLUCOSE METER 2022-12-18 Lopez Portillotian Marie [facility] 06:22:00 [facility] TRANSFUSE LEUKO-REDUCED RED BLOOD 2022-12-18 Egltony, Milad [facility] CELLS 05:55:00 [facility] CALCIUM, IONIZED 2022-12-18 Juan, Jessee [facility] 03:43:00 [facility] POCT-GLUCOSE METER 2022-12-18 Portillo, Rock Mraie [facility] 03:43:00 [facility] LACTIC ACID, ARTERIAL 2022-12-18 Rumbaoa, Sam D [facility] 03:42:00 [facility] LACTATE DEHYDROGENASE (LDH) 2022-12-18 Kee Youmna A [facility] 03:42:00 [facility] HAPTOGLOBIN 2022-12-18 Kee Youmna A [facility] 03:42:00 [facility] RETICULOCYTE COUNT 2022-12-18 Kee, Youmna A [facility] 03:42:00 [facility] PT/APTT 2022-12-[address] [facility] 03:42:00 [facility] FIBRINOGEN 2022-12-18 Kee Youmna A [facility] 03:42:00 [facility] CBC W/PLT COUNT & AUTO 2022-12-18 Juan, Jessee [facility] DIFFERENTIAL 03:42:00 [facility] MAGNESIUM 2022-12-18 Juan, Jessee [facility] 03:42:00 [facility] PHOSPHORUS 2022-12-18 Juan, Jessee [facility] 03:42:00 [facility] BLOOD GAS, ARTERIAL 2022-12-18 Juan, Jessee [facility] 03:42:00 [facility] COMPREHENSIVE METABOLIC PANEL 2022-12-[address] [facility] 03:42:00 [facility] EQUAL MIX, NORMAL PLASMA 2022-12-[address] [facility] 03:42:00 [facility] CBC W/PLT COUNT & AUTO 2022-12-18 Juan, Jessee [facility] DIFFERENTIAL 03:42:00 [facility] (CELLAVISION MANUAL DIFF) 2022-12-18 Juan, Jessee [facility] 03:42:00 [facility] POCT-GLUCOSE METER 2022-12-18 Lindsey Rock B [facility] 01:14:00 [facility] LACTIC ACID, ARTERIAL 2022-12-17 Rumbaoa, Sam D [facility] 23:39:00 [facility] BLOOD GAS, ARTERIAL 2022-12-17 Juan, Jessee [facility] 23:27:00 [facility] BASIC METABOLIC PANEL 2022-12-17 Milad Bañuelos [facility] 23:27:00 [facility] POCT-GLUCOSE METER 2022-12-17 Lindsey Rock B [facility] 23:26:00 [facility] BLOOD GAS, ARTERIAL 2022-12-17 Juan, Jessee [facility] 19:59:00 [facility] LACTIC ACID, ARTERIAL 2022-12-17 Rumbaoa, Sam D [facility] 19:58:00 [facility] CALCIUM, IONIZED 2022-12-17 Juan, Jessee [facility] 19:58:00 [facility] CBC (HEMOGRAM ONLY) 2022-12-17 Juan, Jessee [facility] 19:58:00 [facility] HEPATIC FUNCTION PANEL 2022-12-17 Juan, [facility]see [facility] 19:58:00 [facility] MAGNESIUM 2022-12-17 Juan, Jessee [facility] 19:58:00 [facility] PHOSPHORUS 2022-12-17 Juan, Jessee [facility] 19:58:00 [facility] BASIC METABOLIC PANEL 2022-12-17 Richardson, Rustam [facility] 19:58:00 [facility] POCT-GLUCOSE METER 2022-12-[address] [facility] 19:56:00 [facility] TRANSFUSE PLASMA 2022-12-17 Otuonye, Gene [facility] 16:25:00 [facility] BLOOD GAS, ARTERIAL 2022-12-17 Juan, Jessee [facility] 16:11:00 [facility] LACTIC ACID, ARTERIAL 2022-12-17 Rumbaoa, Sam D [facility] 16:10:00 [facility] BASIC METABOLIC PANEL 2022-12-17 RichardsonArturoRustam [facility] 16:10:00 [facility] FERRITIN 2022-12-[address] [facility] 16:10:00 [facility] IRON, TIBC, % SAT. (WITHOUT 2022-12-17 Beau Bai Juares [facility] FERRITIN) 16:10:00 [facility] TRIGLYCERIDES 2022-12-[address] [facility] 16:10:00 [facility] BLOOD CULTURE 2022-12-17 Sahu, Azar [facility] 15:20:00 [facility] US RENAL COMPLETE 2022-12-[address] [facility] 14:05:00 [facility] TRANSFUSE CRYOPRECIPITATE 2022-12-17 Otuonye, Gene [facility] 14:00:00 [facility] TRANSFUSE CRYOPRECIPITATE 2022-12-17 Otuonye, Gene [facility] 13:15:00 [facility] BLOOD GAS, ARTERIAL 2022-12-17 Juan, Jessee [facility] 12:20:00 [facility] ECG 12-LEAD 2022-12-17 Sahu, Azar [facility] 12:13:22 [facility] LACTIC ACID, ARTERIAL 2022-12-17 Rumbaoa, Sam D [facility] 12:09:00 [facility] PERIPHERAL BLOOD SMEAR - HOLD ONLY 2022-12-[address] [facility] 12:09:00 [facility] FACTOR 8 ACTIVITY 2022-12-17 Beau B[address] Juares [facility] 12:09:00 [facility] FACTOR 10 ACTIVITY 2022-12-[address] Ju[address] [facility] 12:09:00 [facility] CALCIUM, IONIZED 2022-12-17 Juan, Jessee [facility] 12:08:00 [facility] CBC (HEMOGRAM ONLY) 2022-12-17 Juan, Jessee [facility] 12:08:00 [facility] MAGNESIUM 2022-12-17 Juan, Jessee [facility] 12:08:00 [facility] PHOSPHORUS 2022-12-17 Juan, Jessee [facility] 12:08:00 [facility] COMPLEMENT, TOTAL (CH50) 2022-12-[address] [facility] 12:08:00 [facility] BASIC METABOLIC PANEL 2022-12-[address] [facility] 12:08:00 [facility] ANTIBODY IDENTIFICATION 2022-12-[address] [facility] 11:55:00 [facility] BASIC METABOLIC PANEL 2022-12-[address] [facility] 09:43:00 [facility] 2D ECHO W/ DOPPLER (CW/PW/COLOR) 2022-12-17 Sahu, Azar [facility] 08:59:20 [facility] BLOOD GAS, ARTERIAL 2022-12-17 Juan, Jessee [facility] 08:29:00 [facility] LACTIC ACID, ARTERIAL 2022-12-[address] [facility] 08:28:00 [facility] RESPIRATORY PANEL 2022-12-17 Sahu, Azar [facility] 07:40:00 [facility] POCT-GLUCOSE METER 2022-12-17 Portillo, Rock B [facility] 06:45:00 [facility] BLOOD GAS, ARTERIAL 2022-12-17 Sahu, Azar [facility] 05:55:00 [facility] AMMONIA 2022-12-[address] [facility] 05:30:00 [facility] PROCALCITONIN 2022-12-[address] [facility] 05:04:00 [facility] CALCIUM, IONIZED 2022-12-[address] [facility] 05:04:00 [facility] MAGNESIUM 2022-12-[address] [facility] 05:04:00 [facility] PHOSPHORUS 2022-12-17 Poncho Sam [address]a [facility] 05:04:00 [facility] CBC W/PLT COUNT & AUTO 2022-12-[address] [facility] DIFFERENTIAL 05:04:00 [facility] PROTHROMBIN TIME/INR 2022-12-[address] [facility] 05:04:00 [facility] APTT 2022-12-[address] [facility] 05:04:00 [facility] LACTIC ACID, ARTERIAL 2022-12-[address] [facility] 05:04:00 [facility] COMPREHENSIVE METABOLIC PANEL 2022-12-[address] [facility] 05:04:00 [facility] BILIRUBIN, DIRECT 2022-12-[address] [facility] 05:04:00 [facility] LACTATE DEHYDROGENASE (LDH) 2022-12-17 Kee, Youmna A [facility] 05:04:00 [facility] HAPTOGLOBIN 2022-12-17 Kee Youmna A [facility] 05:04:00 [facility] HIGH SENSITIVITY TROPONIN I 2022-12-17 Sahu, Azar [facility] 05:04:00 [facility] RETICULOCYTE COUNT 2022-12-17 Kee, Youmna A [facility] 05:04:00 [facility] COMPLEMENT COMPONENT C4 2022-12-17 Bilal, Mohammad [facility] 05:04:00 [facility] BLOOD BANK EXTRA PINK KEDTA TOP 2022-12-[address] [facility] 05:04:00 [facility] CBC W/PLT COUNT & AUTO 2022-12-[address] [facility] DIFFERENTIAL 05:04:00 [facility] BLOOD GAS, ARTERIAL 2022-12-[address] [facility] 04:22:00 [facility] US ABDOMEN LIMITED 2022-12-17 Sahu, Azar [facility] 04:10:00 [facility] XR CHEST 1 VIEW PORTABLE / BEDSIDE 2022-12-[address] [facility] 03:02:00 [facility] BLOOD GAS, ARTERIAL 2022-12-[address] [facility] 02:41:00 [facility] BASIC METABOLIC PANEL 2022-12-[address] [facility] 00:23:00 [facility] BILIRUBIN, DIRECT 2022-12-17 Adhi, Mu [facility] 00:23:00 Nahid [facility] BLOOD GAS, ARTERIAL 2022-12-[address] [facility] 00:21:00 [facility] BLOOD CULTURE 2022-12-[address] [facility] 00:20:00 [facility] POCT-GLUCOSE METER 2022-12-16 Portillo, Rock B [facility] 23:19:00 [facility] POCT-BLOOD GASES, VENOUS 2022-12-16 Portillo, Rock B [facility] 23:14:00 [facility] POCT-SODIUM 2022-12-16 Portillo, Rock B [facility] 23:14:00 [facility] POCT-POTASSIUM 2022-12-16 Portillo, Rock B [facility] 23:14:00 [facility] POCT-HEMOGLOBIN 2022-12-16 Portillo, Rock B [facility] 23:14:00 [facility] POCT-HEMATOCRIT 2022-12-16 Portillo, Rock B [facility] 23:14:00 [facility] POCT-GLUCOSE 2022-12-16 Portillo, Rock B [facility] 23:14:00 [facility] XR CHEST 1 VIEW PORTABLE / BEDSIDE 2022-12-[address] [facility] 23:11:00 [facility] COMPREHENSIVE METABOLIC PANEL 2022-12-[address] [facility] 23:11:00 [facility] CALCIUM, IONIZED 2022-12-[address] [facility] 23:11:00 [facility] MAGNESIUM 2022-12-[address] [facility] 23:11:00 [facility] PHOSPHORUS 2022-12-[address] [facility] 23:11:00 [facility] LACTIC ACID, VENOUS 2022-12-[address] [facility] 23:11:00 [facility] BLOOD GAS, VENOUS 2022-12-[address] [facility] 23:11:00 [facility] CBC W/PLT COUNT & AUTO 2022-12-[address] [facility] DIFFERENTIAL 23:11:00 [facility] PROTHROMBIN TIME/INR 2022-12-[address] [facility] 23:11:00 [facility] APTT 2022-12-[address] [facility] 23:11:00 [facility] HIGH SENSITIVITY TROPONIN I 2022-12-[address] [facility] 23:11:00 [facility] B-TYPE NATRIURETIC FACTOR (BNP) 2022-12-[address] [facility] 23:11:00 [facility] CREATINE KINASE (CK) 2022-12-[address] [facility] 23:11:00 [facility] HAPTOGLOBIN 2022-12-[address] [facility] 23:11:00 [facility] LACTATE DEHYDROGENASE (LDH) 2022-12-[address] [facility] 23:11:00 [facility] RETICULOCYTE COUNT 2022-12-[address] [facility] 23:11:00 [facility] PERIPHERAL BLOOD SMEAR - 2022-12-[address] [facility] PATHOLOGIST REVIEW 23:11[facility] Sahu, Azar [facility] 23:11:00 [facility] FIBRINOGEN 2022-12-16 Sahu, Azar [facility] 23:11:00 [facility] TSH/FREE T4 IF INDICATED 2022-12-[address] [facility] 23:11:00 [facility] VITAMIN B12 2022-12-16 Sahu, Azar [facility] 23:11:00 [facility] TYPE AND SCREEN, AUTOMATED 2022-12-16 [facility] 23:11:00 [facility] DIRECT AHG (ARNOLD)/DIRECT SONDRA 2022-12-[address] [facility] 23:11:00 [facility] CBC W/PLT COUNT & AUTO 2022-12-[address] [facility] DIFFERENTIAL 23:11:00 [facility] (MANUAL DIFFERENTIAL) 2022-12-16 Rock Portillo Cynthia [facility] 23:11:00 [facility] PERMANENT LAB REPORT - SCAN 2022-12-16 Provider, Default [facility] 00:00:00 Scanning [facility] HOME HEALTH - OTHER 2022-12-03 [facility] o f 06:01:00 Unassigned, No [facility] AUTHORIZATION FOR RELEASE OF PHI 2022-11-22 [facility] 06:01:00 Unassigned, No [facility] ASSIGNMENT OF BENEFITS 2022-11-18 [facility] 14:08:36 Unassigned, No [facility] AUTHORIZATION FOR RELEASE OF PHI 2022-11-15 [facility] 06:01:00 Unassigned, No [facility] AUTHORIZATION FOR RELEASE OF PHI 2022-11-11 [facility] 06:01:00 Unassigned, No [facility] Name Chromo HB ABO GROUPING 2022-10-29 Shena Perea [place] of 20:53:[address] [facility] COMP. METABOLIC PANEL ([id number]) 2022-10-29 Shena [facility] 20:52:00 [facility] CBC WITH DIFF 2022-10-29 Jber [facility] of 20:52:00 [facility] CONSENT/REFUSAL FOR DIAGNOSIS AND 2022-10-29 [facility] TREATMENT 20:01:41 Unassigned, No [facility] BASIC METABOLIC PANEL$W/EGFR-Q 2022-10-27 Elisha Araujo U niversity of 16:36:[address] [facility] POCT-GLUCOSE METER 2022-10-25 Ali, Hiba Tereso [facility] 11:05:00 [facility] POCT-GLUCOSE METER 2022-10-25 Ali, Hiba Tereso [facility] 07:47:00 [facility] BASIC METABOLIC PANEL 2022-10-25 Nalam, Livia Beth [facility] 03:35:00 [facility] MAGNESIUM 2022-10-25 Nalam, Livia Beth [facility] 03:35:00 [facility] CBC W/PLT COUNT & AUTO 2022-10-25 Nalam, Livia Beth [facility] DIFFERENTIAL 03:35:00 [facility] RETICULOCYTE COUNT 2022-10-25 Eziokwu, Akaolisa [facility] 03:35:00 [facility] LACTATE DEHYDROGENASE (LDH) 2022-10-25 Eziokwu, [facility]olisa [facility] 03:35:00 [facility] HAPTOGLOBIN 2022-10-25 Nalam, Livia Ebth [facility] 03:35:00 [facility] HEPATIC FUNCTION PANEL 2022-10-25 Nalam, Livia Beth [facility] 03:35:00 [facility] CBC W/PLT COUNT & AUTO 2022-10-25 Nalam, Livia Beth [facility] DIFFERENTIAL 03:35:00 [facility] POCT-GLUCOSE METER 2022-10-24 Ali, Hiba Tereso [facility] 23:11:00 [facility] POCT-GLUCOSE METER 2022-10-24 Ali, Hiba Tereso [facility] 17:33:00 [facility] POCT-GLUCOSE METER 2022-10-24 Ali, Hiba Tereso [facility] 11:39:00 [facility] POCT-GLUCOSE METER 2022-10-24 Ali, Hiba Tereso [facility] 07:36:00 [facility] BASIC METABOLIC PANEL 2022-10-24 Nalam, Livia Beth [facility] 03:12:00 [facility] MAGNESIUM 2022-10-24 Nalam, Livia Beth [facility] 03:12:00 [facility] CBC W/PLT COUNT & AUTO 2022-10-24 Nalam, Livia Beth [facility] DIFFERENTIAL 03:12:00 [facility] RETICULOCYTE COUNT 2022-10-24 Eziokwu, Akaolisa [facility] 03:12:00 [facility] LACTATE DEHYDROGENASE (LDH) 2022-10-24 Eziokwu, [facility]olisa [facility] 03:12:00 [facility] C-REACTIVE PROTEIN 2022-10-24 Nalam, Livia Beth [facility] 03:12:00 [facility] HAPTOGLOBIN 2022-10-24 Nalam, Livia Beth [facility] 03:12:00 [facility] HEPATIC FUNCTION PANEL 2022-10-24 Nalam, Livia Beth [facility] 03:12:00 [facility] CBC W/PLT COUNT & AUTO 2022-10-24 Nalam, Livia Beth [facility] DIFFERENTIAL 03:12:00 [facility] POCT-GLUCOSE METER 2022-10-23 Ali, Sheria Tereso [facility] 21:50:00 [facility] POCT-GLUCOSE METER 2022-10-23 Ali, Hiba Tereso [facility] 17:24:00 [facility] ANTIBODY IDENTIFICATION 2022-10-23 Nalam, Livia Beth [facility] 12:29:00 [facility] POCT-GLUCOSE METER 2022-10-23 Ali, Hiba Tereso [facility] 12:20:00 [facility] POCT-GLUCOSE METER 2022-10-23 Ali, Hiba Tereso [facility] 09:26:00 [facility] BASIC METABOLIC PANEL 2022-10-23 Nalam, Livia Beth [facility] 04:28:00 [facility] MAGNESIUM 2022-10-23 Nalam, Livia Beth [facility] 04:28:00 [facility] CBC W/PLT COUNT & AUTO 2022-10-23 Nalam, Livia Beth [facility] DIFFERENTIAL 04:28:00 [facility] RETICULOCYTE COUNT 2022-10-23 Eziokwu, Akaolisa [facility] 04:28:00 [facility] LACTATE DEHYDROGENASE (LDH) 2022-10-23 Eziokwu, Akaolisa [facility] 04:28:00 [facility] C-REACTIVE PROTEIN 2022-10-23 Nalam, Livia Beth [facility] 04:28:00 [facility] FERRITIN 2022-10-23 Nalam, Livia Beth [facility] 04:28:00 [facility] HAPTOGLOBIN 2022-10-23 Nalam, Livia Beth [facility] 04:28:00 [facility] HEPATIC FUNCTION PANEL 2022-10-23 Nalam, Livia Beth [facility] 04:28:00 [facility] HEMOGLOBIN A1C 2022-10-23 Nalam, Livia Beth [facility] 04:28:00 [facility] CBC W/PLT COUNT & AUTO 2022-10-23 Nalam, Livia Beth [facility] DIFFERENTIAL 04:28:00 [facility] ABORH, MANUAL 2022-10-[address] [facility] 02:02:00 [facility] POCT-GLUCOSE METER 2022-10-22 Nalam, Livia Beth [facility] 22:41:00 [facility] XR ABDOMEN/KUB 1 VIEW PORTABLE 2022-10-22 Nalam, Livia Beth [facility] 17:23:00 [facility] D-DIMER 2022-10-22 Nalam, Livia Beth [facility] 16:29:00 [facility] CBC W/PLT COUNT & AUTO 2022-10-22 Nalam, Livia Beth [facility] DIFFERENTIAL 11:33:00 [facility] RETICULOCYTE COUNT 2022-10-22 Nalam, Livia Beth [facility] 11:33:00 [facility] PERIPHERAL BLOOD SMEAR - HOLD ONLY 2022-10-22 Nalam, Livia Beth [facility] 11:33:00 [facility] DIRECT AHG (ARNOLD)/DIRECT SONDRA 2022-10-22 Nalam, Livia Beth [facility] 11:33:00 [facility] TYPE AND SCREEN, AUTOMATED 2022-10-22 Nalam, Livia Beth [facility] 11:33:00 [facility] CBC W/PLT COUNT & AUTO 2022-10-22 Nalam, Livia Beth [facility] DIFFERENTIAL 11:33:00 [facility] COMPREHENSIVE METABOLIC PANEL 2022-10-22 Nalam, Livia Beth [facility] 11:32:00 [facility] MAGNESIUM 2022-10-22 Nalam, Livia Beth [facility] 11:32:00 [facility] LACTATE DEHYDROGENASE (LDH) 2022-10-22 Nalam, Livia Beth [facility] 11:32:00 [facility] BILIRUBIN, DIRECT 2022-10-22 Nalam, Livia Beth [facility] 11:32:00 [facility] IRON, TIBC, % SAT. (WITHOUT 2022-10-22 Nalam, Livia Beth [facility] FERR[facility]IN) 11:32:00 [facility] FERRITIN 2022-10-22 Nalam, Livia Beth [facility] 11:32:00 [facility] VITAMIN B12 2022-10-22 Nalam, Livia Beth [facility] 11:32:00 [facility] HAPTOGLOBIN 2022-10-22 Nalam, Livia Beth [facility] 11:32:00 [facility] FIBRINOGEN 2022-10-22 Nalam, Livia Beth [facility] 11:31:00 [facility] PT/APTT 2022-10-22 Nalam, Livia Beth [facility] 11:31:00 [facility] EKG-SCANNED 2022-10-22 Provider, Default [facility] 00:00:00 Scanning [facility] COMP. METABOLIC PANEL ([id number]) 2022-10-19 Tina Curtis Un iversity of 11:22:[address] [facility] GIARDIA CRYPTOSPORIDIUM AG SCR 2022-10-19 Tina Curtis U niversity of 05:09:[address] [facility] FECAL PATHOGENS BY PCR 2022-10-19 Tina Curtis [facility] 05:09:[address] [facility] CT ABDOMEN PELVIS W CONTRAST 2022-10-18 Kemal Myers niversity of 23:00:00 [facility] POCT TEST 2022-10-18 [facility] of 22:15:00 [facility] LIPASE 2022-10-18 [facility] of 22:08:00 [facility] FREE T4 2022-10-18 [facility] 22:08:[address] [facility] THYROID STIMULATING HORMONE 2022-10-18 Tina Curtis Univ ersity of 22:08:[address] [facility] COMP. METABOLIC PANEL ([id number]) 2022-10-18 Rocioyola [facility] of 22:08:00 [facility] CBC WITH DIFF 2022-10-18 [facility] of 22:08:00 [facility] URINALYSIS 2022-10-18 [facility] of 22:08:00 [facility] CONSENT/REFUSAL FOR DIAGNOSIS AND 2022-10-18 [facility] 20:52:07 Unassigned, No [facility] URINE CULTURE 2022-10-18 Alvina [facility] 17:46:00 [facility] BASIC METABOLIC PANEL (NA, K, CL, 2022-10-18 [place] [id number], GLUCOSE, BUN, CREATININE, CA) 17:24:00 [facility] C-REACTIVE PROTEIN 2022-10-18 [facility] 17:24[facility]00 [facility] POCT URINALYSIS AUTO 2022-10-18 [facility] 16:15:00 [facility] DISCLOSURE AND CONSENT, MEDICAL 2022-10-18 [facility] AND SURGICAL PROCEDURES 06:01:00 Unassigned, No [facility] ADMISSION 2022-10-18 [facility] 06:01:00 Unassigned, No [facility] LACTIC ACID WHOLE BLOOD 2022-10-07 Destiny Oneill [facility] of 18:28:[address] [facility] LIPASE 2022-10-07 Nino [facility] of 18:16:[address] [facility] COMP. METABOLIC PANEL ([id number]) 2022-10-07 Destiny Oneill iversity of 18:16:[address] [facility] CBC WITH DIFF 2022-10-07 Oneill [facility] of 18:16:[address] [facility] URINALYSIS 2022-10-07 Nino [facility] of 18:16:[address] [facility] CONSENT/REFUSAL FOR DIAGNOSIS AND 2022-10-07 [facility] of TREATMENT 16:58:17 Unassigned, No [facility] POCT HEMOGLOBIN A1C TEST 2022-08-24 Tray Jolly [facility] ity of 00:00:00 [facility] DME/SUPPLY JUSTIFICATION 2022-08-05 [facility] ity of 06:01:00 Unassigned, No [facility] SARS-COV-2 COVID-19 CHRISTELLE-SUCROSE 2022-07-27 Tray Jolly [place] of VACCINE 12 YRS+, BIVALENT 0.3ML, 13:13:29 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 MR CERVICAL SPINE WO CONTRAST 2022-06-30 Stella Worley iversity of 16:20:35 [facility] CONSENT/REFUSAL FOR DIAGNOSIS AND 2022-06-30 Doctor [facility] 14:32:21 Unassigned, No [facility] CONSENT/REFUSAL FOR DIAGNOSIS AND 2022-06-30 Doctor [facility] 14:32:20 Unassigned, No [facility] INSURANCE CORRESPONDENCE 2022-06-17 Doctor [facility] it of 05:01:00 Unassigned, No [facility] POWER OF TOLL REPAIRER CENTRAL OFFICE 2022-06-01 Doctor [place] of 05:01:00 Unassigned, No [facility] POWER OF TOLL REPAIRER CENTRAL OFFICE 2022-05-13 Doctor [place] of 05:01:00 Unassigned, No [facility] DME/SUPPLY JUSTIFICATION 2022-05-06 Doctor [facility] ity of 05:01:00 Unassigned, No [facility] EMG/NCV 2022-04-08 Stella Worley [place] of 14:43:[address] [facility] CONSENT/REFUSAL FOR DIAGNOSIS AND 2022-03-27 [facility] 12:40:53 Unassigned, No [facility] PHYSICIAN ORDERS 2022-03-19 [facility] 05:01:00 Unassigned, No [facility] COLONOSCOPY (ENDO) 2022-03-02 Rik [facility] of 14:43:32 [facility] ([facility]) 2022-03-02 [facility] of 14:43:32 [facility] COLONOSCOPY 2022-03-02 Asher, [facility] of 14:02:[address] [facility] ESOPHAGOGASTRODUODENOSCOPY 2022-03-02 [facility] ersity of 14:02:[address] [facility] EGD (ENDO) 2022-03-02 Rik [facility] of 13:53:24 [facility] EGD (ENDO) 2022-03-02 Kikacecilia [facility] of 13:53:24 [facility] POCT GLUCOSE(AGE >30DAYS) 2022-03-02 [facility] of 12:59:[address] [facility] POCT GLUCOSE(AGE >30DAYS) 2022-03-02 [facility] ersity of 12:59:[address] [facility] POCT GLUCOSE (AUTOMATED) 2022-03-02 Cecile Asher [facility] sity of 12:58:[address] [facility] POCT GLUCOSE (AUTOMATED) 2022-03-02 Cecile Asher [facility] sity of 12:58:[address] [facility] POCT TEST 2022-03-02 [facility] of 12:48:[address] [facility] POCT TEST 2022-03-02 [facility] of 12:48:[address] [facility] DAY SURGERY - ADC 2022-03-02 [facility] of 05:01:00 Unassigned, No [facility] DME/SUPPLY JUSTIFICATION 2022-01-04 Doctor [facility] ity of 05:01:00 Unassigned, No [facility] DME/SUPPLY JUSTIFICATION 2022-01-04 Doctor [facility] it of 05:01:00 Unassigned, No [facility] Name Branch DISCLOSURE AND CONSENT, MEDICAL 2021-12-28 [facility] of AND SURGICAL PROCEDURES 05:01:00 Unassigned, No [facility] dical Name Branch DISCLOSURE AND CONSENT, MEDICAL 2021-12-28 [facility] of AND SURGICAL PROCEDURES 05:01:00 Unassigned, No [facility] dical Name Branch Plan of Care Planned Activity Planned Date Details Comments Source Future Scheduled 2032-03-02 Screening for malignant [facility] Test 00:00:00 neoplasm of colon Medical Ce nter (procedure) [code = 396875927] Future Scheduled 2032-03-02 Screening for malignant [facility] Test 00:00:00 neoplasm of colon Medical Ce nter (procedure) [code = [id number]] Future Scheduled 2032-03-02 Screening for malignant [facility] Test 00:00:00 neoplasm of colon Medical Ce nter (procedure) [code = [id number]] Future Scheduled 2032-03-02 Screening for malignant [facility] Test 00:00:00 neoplasm of colon Medical Ce nter (procedure) [code = [id number]] Future Scheduled 2032-03-02 Screening for malignant [facility] Test 00:00:00 neoplasm of colon Medical Ce nter (procedure) [code = [id number]] Future Scheduled 2032-03-02 Screening for malignant [facility] Test 00:00:00 neoplasm of colon Medical Ce nter (procedure) [code = [id number]] Future Scheduled 2032-03-02 Screening for malignant [facility] Test 00:00:00 neoplasm of colon Medical Ce nter (procedure) [code = [id number]] Future Scheduled 2032-03-02 Screening for malignant [facility] Test 00:00:00 neoplasm of colon Medical Ce nter (procedure) [code = 389271052] Future Scheduled 2032-03-02 Screening for malignant [facility] 00:00:00 neoplasm of colon Medical Ce nter (procedure) [code = 813823140] Future Scheduled 2032-03-02 Screening for malignant [facility] 00:00:00 neoplasm of colon Medical Ce nter (procedure) [code = 939777213] Future Scheduled 2032-03-02 Screening for malignant [facility] 00:00:00 neoplasm of colon Medical Ce nter (procedure) [code = 460982579] Future Scheduled 2032-03-02 Screening for malignant [facility] 00:00:00 neoplasm of colon Medical Ce nter (procedure) [code = 300849933] Future Scheduled 2032-03-02 Screening for malignant [facility] 00:00:00 neoplasm of colon Medical Ce nter (procedure) [code = 313872472] Future Scheduled 2032-03-02 Screening for malignant [facility] 00:00:00 neoplasm of colon Medical Ce nter (procedure) [code = 228833410] Future Scheduled 2029-08-10 DTAP/TDAP/TD VACCINES [facility] [...] - Booster for Pfizer series)] Future Scheduled 2021-09-17 COVID-19 VACCINE (4 - [facility] Booster for Pfizer Medical C enter series) [code = COVID-19 VACCINE (4 - Booster for Pfizer series)] Future Scheduled 2018 Lipid panel (procedure) [facility] 00:00:00 [code = 62104722] Medical Ce nter Future Scheduled 2018 Lipid panel (procedure) [facility] 00:00:00 [code = 86546340] Medical Ce nter Future Scheduled 2018 Lipid panel (procedure) [facility] 00:00:00 [code = 20917200] Medical Ce nter Future Scheduled 2018 Lipid panel (procedure) [facility] 00:00:00 [code = 96071410] Medical Ce nter Future Scheduled 2018 Lipid panel (procedure) [facility] 00:00:00 [code = 36334966] Medical Ce nter Future Scheduled 2018 Lipid panel (procedure) [facility] 00:00:00 [code = 37020628] Medical Ce nter Future Scheduled 2018-06-08 Lipid panel (procedure) [facility] 00:00:00 [code = 34056818] Medical Ce nter Future Scheduled 1994 Screening for malignant [facility] 00:00:00 neoplasm of cervix Medical C enter (procedure) [code = 202285341] Future Scheduled 1994 Screening for malignant [facility] 00:00:00 neoplasm of cervix Medical C enter (procedure) [code = 832933420] Future Scheduled 1994 Screening for malignant [facility] 00:00:00 neoplasm of cervix Medical C enter (procedure) [code = 369078076] Future Scheduled 1994 Screening for malignant [facility] 00:00:00 neoplasm of cervix Medical C enter (procedure) [code = 907066954] Future Scheduled 1994 Screening for malignant [facility] 00:00:00 neoplasm of cervix Medical C enter (procedure) [code = 109636523] Future Scheduled 1994 Screening for malignant [facility] 00:00:00 neoplasm of cervix Medical C enter (procedure) [code = 306790560] Future Scheduled 1994 Screening for malignant [facility] 00:00:00 neoplasm of cervix Medical C enter (procedure) [code = 649149847] Future Scheduled 1991 HEPATITIS C SCREENING CH [...] colon Medical Ce nter (procedure) [code = 261704531] Future Scheduled 1973 Screening for malignant [facility] 00:00:00 neoplasm of colon Medical Ce nter (procedure) [code = 160397890] Future Scheduled 1973 Sigmoidoscopy [code = [facility] S[facility]oscopy] Medical Cente r Future Scheduled 1973 CT Colonography (combo) [facility] 00:00:00 [code = CT [facility] Future Scheduled 1973 Screening for malignant [facility] 00:00:00 neoplasm of colon Medical Ce nter (procedure) [code = 063078115] Future Scheduled 1973 Screening for malignant [facility] 00:00:00 neoplasm of colon Medical Ce nter (procedure) [code = 682845941] Future Scheduled 1973 Sigmoidoscopy [facility]code = [facility] S[facility]oscopy] Medical Cente r Future Scheduled 1973 CT Colonography (combo) [facility] 00:00:00 [code = CT [facility])] Future Scheduled 1973 Screening for malignant [facility] 00:00:00 neoplasm of colon Medical Ce nter (procedure) [code = 478093776] Future Scheduled 1973 Screening for malignant [facility] 00:00:00 neoplasm of colon Medical Ce nter (procedure) [code = 009660045] Future Scheduled 1973 Sigmoidoscopy [code = [facility] Sigmoidoscopy] Medical Alinee r Future Scheduled 1973 CT Colonography (combo) [facility] 00:00:00 [code = CT Colonography [facility] (combo)] Future Scheduled 1973 Screening for malignant [facility] 00:00:00 neoplasm of colon Medical Ce nter (procedure) [code = 154175557] Future Scheduled 1973 CT Colonography (combo) [facility] 00:00:00 [code = CT [facility])] Future Scheduled 1973 Screening for malignant [facility] 00:00:00 neoplasm of colon Medical Ce nter (procedure) [code = 325990329] Future Scheduled 1973 Screening for malignant [facility] 00:00:00 neoplasm of colon Medical Ce nter (procedure) [code = 780560240] Future Scheduled 1973 Sigmoidoscopy [facility]code [facility]oscopy] Medical Alinee r Future Scheduled 1973 Screening for malignant [facility] 00:00:00 neoplasm of colon Medical Ce nter (procedure) [code = 033730491] Future Scheduled 1973 Sigmoidoscopy [facility]code [facility] Sigmoidoscopy] Medical Alinee r Future Scheduled 1973 CT Colonography (combo) [facility] 00:00:00 [code = CT [facility])] Future Scheduled 1973 Screening for malignant [facility] 00:00:00 neoplasm of colon Medical Ce nter (procedure) [code = 700522259] Future Scheduled 1973 Screening for malignant [facility] 00:00:00 neoplasm of colon Medical Ce nter (procedure) [code = 578758212] Future Scheduled 1973 Sigmoidoscopy [code = [facility] Sigmoidoscopy] Medical Alinee r Future Scheduled 1973 CT Colonography (combo) [facility] 00:00:00 [code = CT Colonography [facility] (combo)] Future Scheduled 1973 Screening for malignant [facility] 00:00:00 neoplasm of colon Medical Ce nter (procedure) [code = 949536688] Future Scheduled 1973 Screening for malignant [facility] 00:00:00 neoplasm of colon Medical Ce nter (procedure) [code = 191162133] Future Scheduled 1973 Sigmoidoscopy [code [facility] S[facility]oscopy] Medical Cente r Encounters Start End Encounter Admission Attending Care Care Encounter Source Date/Time Date/Time Type Type Clinicians Facility Department ID 2022-12-31 Outpatient Brock MAN [facility] [id number] Univers 11:33:58 LAKISHA flores o f [facility] 2022-02-16 [id number] Univers 10:29:45 CECILE [facility] 2021-12-01 [facility] [id number] Univers 13:05:09 CECILE [facility] 2021-11-04 [facility] [id number] Univers 15:43:22 CECILE [facility] 2021-07-27 Emergency [facility] [id number] Univers 19:11:28 ity [facility] 2021-07-27 Emergency [facility] [id number] Univers 10:12:30 ity [facility] 2021-07-27 Emergency [facility] [id number] Univers 06:35:[address] [facility] 2021-07-27 Emergency [facility] [id number] Univers 04:01:[address] [facility] 2021-07-26 Emergency [facility] [id number] Univers 12:06:[address] [facility] 2021-07-26 Emergency [facility] [id number] Univers 11:43:46 ity [facility] 2023-06-17 2023-07-11 Inpatient E [facility] [id number] 12:24:00 17:21:00 GYANENDRA 01 [facility] 2023-05-08 2023-05-14 Inpatient EM ROSITA Yi [facility] [id number] [facility] 13:08:00 13:48:00 Cuca 73 [facility] 2023-05-08 2023-05-08 Outpatient MICHELLE Almanza [facility] SAEED [id number] [facility] 05:54:00 05:54:00 Peterson 72 [facility] 2023-04-21 2023-04-27 Inpatient EM Lelia Hassan [facility] MEDI.01 [id number] [facility] 13:37:00 17:52:00 10 [facility] 2023-03-11 2023-03-31 Inpatient EM Josephine [facility] INTE.02 [id number] [facility] 06:54:00 18:09:00 Dom 07 [facility] 2023-03-23 2023-03-23 Outpatient R RIK [facility] [id number] Univers 14:30:00 14:30:00 TRAY [facility] 2023-03-10 2023-03-10 Orders Doctor BON 1.2.840.114 [id number] Univers 00:00:00 00:00:00 Only Unassigned, GRAYSON 350.1.13.10 ity of [place] [address].2.7.2.686 Emanuel as [phone] [facility] [address] 2023-03-07 2023-03-07 Office Aubrie Lin [facility] 1.2.840.114 10 [id number] Univers 10:00:00 10:30:00 Visit SPECIALTY 350.1.13.10 ity of [place] [id number] [facility] [address] 2023-03-07 2023-03-07 Outpatient R AUBRIE LIN [facility] [id number] Univers 10:00:00 10:00:00 ity [facility] 2023-03-04 2023-03-04 Telephone Aubrie Lin [facility] 1.2.840.114 [id number] Univers 00:00:00 00:00:00 SPECIALTY 350.1.13.10 ity of [facility].[place] [id number] [facility] [address] 2023-02-28 2023-02-28 Orders Doctor BON 1.2.840.114 [id number] Univers 00:00:00 00:00:00 Only Unassigned, GRAYSON 350.1.13.10 [place] [facility] 4.2.7.2.686 Emanuel as [id number] [facility] [address] 2023-02-23 2023-02-24 Emergency EM Oliver, [facility] AERS [id number] [facility] 20:56:00 00:05:00 Tarun 94 [place] [facility] 2023-02-16 2023-02-22 Outpatient X TONA [facility] [id number] Univers 21:35:00 12:56:00 [facility] 2023-02-16 2023-02-22 Emergency Dafne Navarro [facility] 1.2.840.114 10 [id number] Univers 21:35:00 12:56:00 [facility] 350.1.13.10 ity of [place] 4.2.7.2.686 [place] for[place] BON WIER [phone] [facility] 113 Branch (CLC) 2023-02-22 2023-02-22 Outpatient Brock JOLLY [facility] [id number] Univers 09:15:00 09:15:00 TRAY [facility] 2023-02-07 2023-02-15 Inpatient ER JOSE, [facility] General Med [id number] [facility] 00:59:00 17:15:00 DEON 2023-02-10 2023-02-10 Outpatient R NAV ANTONIO [facility] [id number] Univers 08:30:00 08:30:00 ity [facility] 2023-02-06 2023-02-07 Outpatient E CRYS [facility] [id number] [facility] 17:35:00 00:29:00 DANNI [facility] 2022-12-16 2023-02-04 Inpatient UR SUMMER, [facility] Surgery [id number] [facility] 22:24:00 18:21:00 LAZARO 2023-02-04 2023-02-04 Documentat DAVI Brownlee [id number] 00:[facility]00 00:00:00 [facility] 2023-01-28 2023-01-28 Documentat Kem [facility] [id number] 00:00[facility]00 00:00:[address] [facility] 2023-01-20 2023-01-20 Anesthesia Pardo, Nora [facility] [id number] 16:14:00 19:25:00 Event Sea Gibson [facility] 2023-01-20 2023-01-20 Surgery Camachoalissa, [facility] [id number] 15:00:00 17:13:00 [facility] 2023-01-12 2023-01-12 [facility] [id number] [facility] 11:30:00 11:30:[address] [facility] 2023-01-09 2023-01-09 Telephone [facility] 1.2.840.114 [id number] Univers 00:00:00 00:00:00 [facility] 350.1.13.10 it y of [place] 4.2.7.2.686 Emanuel as JOLLY?BLEA [id number] [address] [facility] 2023-01-07 2023-01-07 Telephone [facility] 1.2.840.114 [id number] Univers 00:00:00 00:00:00 [facility] 350.1.13.10 it y of [place] 4.2.7.2.686 Emanuel as JOLLY?BLEA [id number] [address] [facility] 2023-01-03 2023-01-03 Anesthesia Chao Sahu [facility] [id number] 07:59:00 13:18:00 Event Constantino Morales [facility] 2023-01-03 2023-01-03 Surgery Juan, [facility] [id number] 08:00:00 11:58:00 Ricki Shah [facility] 2023-01-03 2023-01-03 Susan Jolly, [facility] 1.2.840.114 [id number] Univers 00:00:00 00:00:00 [facility] 350.1.13.10 it y of [place] 4.2.7.2.686 Emanuel as JOLLY?BLEA [id number] Me [address] MEDICAL OFFICE BUILDING 2022-12-31 2022-12-31 Surgery Tila, [facility] [id number] 15:00:00 19:01:00 Bernarda [facility] 2022-12-31 2022-12-31 Anesthesia Jennifer, [facility] [id number] 13:37:00 17:20:00 Event Lizbet [facility] 2022-12-31 2022-12-31 Israel Brownlee [facility] [id number] [id number] 00:00:00 00:00:00 [facility] 2022-12-30 2022-12-30 Israel Hanks [facility] [id number] 00:00:00 00:00:00 [facility] 2022-12-30 2022-12-30 Israel Brownlee [facility] [id number] 00:00:00 00:00:00 [facility] 2022-12-30 2022-12-30 Israel Brownlee [facility] [id number] 00:00:00 00:00:00 [facility] 2022-12-27 2022-12-27 Israel Brownlee [facility] [id number] 00:00:00 00:00:00 [facility] 2022-12-27 2022-12-27 Israel Brownlee [facility] [id number] 00:00:00 00:00:00 [facility] 2022-12-21 2022-12-21 Israel Brownlee [facility] [id number] [id number] 00:00:00 00:00:00 [facility] 2022-12-20 2022-12-20 Orders Doctor BON Nelson2.840.114 [id number] Univers 00:00:00 00:00:00 Only Unassigned, GRAYSON 350.1.13.10 ity [place] [facility] 4.2.7.2.686 Emanuel as [id number] [place] [address] Branch 2022-12-20 2022-12-20 Documentat Kem [facility] [id number] [id number] 00:00:00 00:00:00 [facility] 2022-12-20 2022-12-20 [facility] [id number] 00:00:00 00:00:00 [facility] 2022-12-20 2022-12-20 Documentat Latonya [facility] [id number] [id number] 00:00:00 00:00:00 [facility] Jyothi [facility] 2022-12-20 2022-12-20 Telephone Ramesh [facility] [id number] 00:00[facility]00 00[facility]00[facility]00 [facility] 2022-12-20 2022-12-20 Abstract Bon Hall [facility] [id number] 00:00:00 00:00:00 [facility] 2022-12-06 2022-12-06 Patient Doctor BON Nelson2.840.114 [id number] Univers 00:00:00 00:00:00 Secure Msg Unassigned, GRAYSON 350.1.13.10 ity [place] [facility] 4.2.7.2.686 Emanuel as [id number] [facility] 019 Branch 2022-12-03 2022-12-03 Orders Doctor BON Nelson2.840.114 [id number] Univers 00:00:00 00:00:00 Only Unassigned, GRAYSON 350.1.13.10 ity of [place] HOSPITAL 4.2.7.2.686 Emanuel as [id number] [address] 2022-11-30 2022-11-30 [facility] 1.2.840.114 [id number] Univers 00:00:00 00:00:00 Wondiful A HEALTH 350.1.13.10 ity of [place] 4.2.7.2.686 Emanuel as JOLLY?BLEA [id number] De dical KNEY [address] [facility] 2022-11-25 2022-11-25 Outpatient NAV GIANG [facility] [id number] Univers 00:00:00 00:00:[address] [facility] 2022-11-21 2022-11-24 Inpatient SHANNAN LopezIL MAS [id number] [facility] 12:57:00 14:58:00 Neris 86 [facility] 2022-11-24 2022-11-24 Outpatient Brock JOLLY [facility] [id number] Univers 09:45:00 09:45:00 TARY ity [facility] 2022-11-22 2022-11-22 Orders Doctor BON 1.2.840.114 [id number] Univers 00:00:00 00:00:00 Only Unassigned, GRAYSON 350.1.13.10 [facility] 4.2.7.2.686 Emanuel as [id number] [address] 2022-11-21 2022-11-21 Outpatient EMRE Estrada LABO [id number] [facility] 01:06:00 01:06:00 Neris Swain [facility] 2022-11-18 2022-11-18 Outpatient NAV GIANG [facility] [id number] Univers 08:00:00 09:08:00 ity [facility] 2022-11-18 2022-11-18 Office Marisela [facility] 1.2.790.431 [id number] Univers 08:00:00 09:08:00 Visit Cam [place] 350.1.13.10 i ty [facility] [place].7.[place] [id number] De gabi NAL 134 [facility] 2022-11-18 2022-11-18 Orders Doctor BON 1.2.840.114 [id number] Univers 00:00:00 00:00:00 Only Unassigned, GRAYSON 350.1.13.10 ity of [place] HOSPITAL 4.2.7.2.686 Emanuel as [id number] [facility] [address] 2022-11-17 2022-11-17 [facility] 1.2.840.114 [id number] Univers 00:00:00 00:00:00 Maribelazael GREGORIO 350.1.13.10 it[facility] 4.2.7.2.[place] [id number] De dical NAL 204 [facility] 2022-11-16 2022-11-16 Reffranchesca AsherPRES[facility] 1.2.468.414 [id number] Univers 00:00:00 00:00:00 Cecile JG 350.1.13.10 i ty of [place] 4[place]2.7.2.[place] [id number] De dical NAL 188 [facility] 2022-11-15 2022-11-15 Orders Doctor BON 1.2.840.114 [id number] Univers 00:00:00 00:00:00 Only Unassigned, GRAYSON 350.1.13.10 ity of [place] [facility]OS[facility] 4.2.7.2.686 Emanuel as [id number] [facility] [address] 2022-11-12 2022-11-12 Telephone [facility] 1.2.840.114 [id number] Univers 00:00:00 00:00:00 [facility] 350.1.13.10 it y of [place] [facility] 4.2.7.2.686 Emanuel as JOLLY?BLEA [id number] De dical KNEY [address] MEDICAL OFFICE BUILDING 2022-11-12 2022-11-12 Patient Doctor BON 1.2.840.114 [id number] Univers 00:00:00 00:00:00 Secure Msg Unassigned, GRAYSON 350.1.13.10 ity of [place] [facility]OS[facility] 4.2.7.2.686 Emanuel as [id number] [facility] 019 Chrom[address] 2022-11-11 2022-11-11 Telephone SairaBRANDON 1.2.840.114 10 [id number] Univers 00:00:00 00:00:00 Bon Cook HEALTH 350.1.13.10 i ty of [facility] 4.2.7.2.686 [place] [id number] [facility] [address] 2022-11-11 2022-11-11 Orders Doctor BON 1.2.840.114 [id number] Univers 00:00:00 00:00:00 Only Unassigned, GRYASON 350.1.13.10 ity of [place] [facility]OSPITAL 4.2.7.2.686 Emanuel as [id number] [facility] [address] 2022-11-09 2022-11-09 Telephone [facility] 1.2.928.455 [id number] Univers 00:00:00 00:00:00 Vik Bernadette HEALTH 350.1.13.10 it y of [place] 4.2.7.2.686 [place] [facility] [id number] [facility] PRIMARY & [address] SPECIALTY CARE 2022-11-08 2022-11-08 Telephone [facility] 1.2.840.114 [id number] Univers 00:00:00 00:00:00 [facility] 350.1.13.10 it y of [place] 4.2.7.2.686 Emanuel as JOLLY?BLEA [id number] [address] MEDICAL OFFICE BUILDING 2022-11-05 2022-11-05 Patient Doctor BON 1.2.840.114 [id number] Univers 00:00:00 00:00:00 Secure Msg Unassigned, GRAYSON 350.1.13.10 ity [place] [facility] 4.2.7.2.686 Emanuel as [phone] [facility] 0[address] 2022-11-04 2022-11-04 Telephone [facility] 1.2.840.114 [id number] Univers 00:00:00 00:00:00 Tray HEALTH 350.1.13.10 it y of [place] [facility] 4.2.7.2.686 Emanuel as JOLLY?BLEA [id number] [address] MEDICAL OFFICE BUILDING 2022-11-012022-11-01 [facility] R RIK [facility] [id number] Univers 14:30:00 14:30:00 TRAY jay [facility] 2022-11-01 2022-11-01 [facility] 1.2.840.114 [id number] Univers 00:00:00 00:00:00 [facility] 350.1.13.10 it y of [place] 4.2.7.2.686 Emanuel as JOLLY?BLEA [id number] [address] [facility] 2022-10-29 2022-10-29 Emergency X [facility] ERT [id number] Univers 14:24:00 16:45:00 SHENA phillipsjay [facility] 2022-10-29 2022-10-29 Emergency [facility] 1.2.840.114 10 [id number] Univers 14:24:00 16:45:00 Shena GREGORIO 350.1.13.10 ity of [place] 4.2.7.2.686 [place] [facility] [id number] [address] 2022-10-29 2022-10-29 Telephone [facility] 1.2.839.092 [id number] Univers 00:00:00 00:00:00 Elisha HEALTH 350.1.13.10 it y of [place] 4.2.7.2.686 Emanuel as JOLLY?BLEA [id number] [address] 2022-10-29 2022-10-29 Telephone [facility] 1.2.840.114 [id number] Univers 00:00:00 00:00:00 Tray HEALTH 350.1.13.10 it y of [place] 4.2.7.2.686 Emanuel as JOLLY?BLEA [id number] [address] 2022-10-29 2022-10-29 Telephone [facility] 1.2.840.114 [id number] Univers 00:00:00 00:00:00 Tray HEALTH 350.1.13.10 it y of [place] 4.2.7.2.686 Emanuel as JOLLY?BLEA [id number] [address] MEDICAL OFFICE BUILDING 2022-10-28 2022-10-28 Telephone Van [facility] 1.2.850.154 [id number] Univers 00:00:00 00:00:00 Elisha HEALTH 350.1.13.10 it y of [place] 4.2.7.2.686 Emanuel as JOLLY?BLEA [id number] [address] [facility] 2022-10-28 2022-10-28 Patient Scot [facility] 1.2.840.114 [id number] Univers 00:00:00 00:00:00 Outreach Critical access hospital 350.1.13.10 i ty of [place] 4.2.7.2.686 [place] [facility] [phone] [facility] PRIMARY & [facility] Branch SPECIALTY CARE 2022-10-27 2022-10-27 Outpatient [facility] [id number] Univers 09:00:00 10:02:31 ELISHA flores [facility] 2022-10-27 2022-10-27 Office [facility] 1.2.840.114 [id number] Univers 09:00:00 10:02:31 Visit [facility] 350.1.13.10 it y of [place] 4.2.7.2.686 Emanuel as JOLLY?BLEA [id number] [address] [facility] 2022-10-27 2022-10-27 Orders BON Araujo 1.2.840.114 [id number] Univers 00:00:00 00:00:00 Only Elisha GRAYSON 350.1.13.[address] [facility] 4.2.7.2.686 Emanuel as [id number] [place] [address] Branch 2022-10-26 2022-10-26 [facility]phone [facility] [id number] Univers 00:00:00 00:00:00 Elisha HEALTH 350.1.13.10 it y of [place] 4.2.7.2.686 Emanuel as JOLLY?BLEA [id number] [address] MEDICAL OFFICE BUILDING 2022-10-22 2022-10-25 Inpatient ER PANTERA NAVARRO Internal [id number] SLE 05:22:00 14:24:00 Med 2022-10-22 2022-10-25 Hospital ER Lisandro Dailey [facility] 1 [id number] [facility] 05:22:00 14:24:00 Encounter Livia Brady [facility] 2022-10-23 2022-10-23 Patient Doctor BON [id number] Univers 00:00:00 00:00:00 Secure Msg UnassGRAYSON villalobos 350.1.13.[address] [place] [facility] HOSPITAL 4.2.7.2.686 Emanuel as [id number] [address] 2022-10-22 2022-10-22 Travel [facility] [id number] [facility] 00[facility]:00 [facility] 2022-10-21 2022-10-21 June ASHER [facility] [id number] Univers 15:45:00 15:45:00 CECILE ity of [facility] 2022-10-21 2022-10-21 Telephone [facility] 1.2.840.114 [id number] Univers 00:00:00 00:00:00 [facility] 350.1.13.10 it y of [facility] 4.2.7.2.686 Emanuel as JOLLY?BLEA [phone] [address] MEDICAL OFFICE BUILDING 2022-10-20 2022-10-20 Nurse BON Stark 1.2.840.114 [id number] Univers 00:00:00 00:00:00 Triage Kvng GALICIA 350.1.13.[address] [facility] 4.2.7.2.686 Emanuel as [id number] [address] 2022-10-18 2022-10-19 Emergency Kemal Myers 1.2. 840.114 [id number] Univers 15:07:00 17:48:00 Geovanny Willis 350.1.13.10 ity of [place], Deshaun [facility] 4.2.7.2.686 [place] [phone] [facility] 096 Chromo 2022-10-19 2022-10-19 Refill [facility] 1.2.776.942 [id number] [id number] Univers 00:00:00 00:00:00 Vern PRIMARY 350.1.13.10 it y of [place] [facility] 4.2.7.2.686 [place] [phone] De dical 044 Chromo 2022-10-18 2022-10-18 Outpatient [facility] 1043 [id number] Univers 11:45:00 13:42:03 MARIBEL flores o birdie [facility] 2022-10-18 2022-10-18 Senior Accountant Analyst 2, Adc Lab [facility] 1.2.840.114 [id number] Univers 11:45:00 13:42:03 Visit Maribel Tinsley 350.1.13. 10 ity of [place].2.7.2.686 [place] [phone] De dical NAL 353 [facility] 2022-10-18 2022-10-18 Outpatient [facility] 1043 [id number] Univers 11:00:00 11:14:47 MARIBEL flores o birdie [facility] 2022-10-18 2022-10-18 Office Tinsley, [facility] 1.2.840.114 [id number] Univers 11:00:00 11:14:47 Visit Maribel GREGOIRO 350.1.13.10 ity of [place] 4.2.7.2.686 [place] [id number] De dical NAL 204 [facility] 2022-10-18 2022-10-18 Orders Doctor BON 1.2.840.114 [id number] Univers 00:00:00 00:00:00 Only Unassigned, GRAYSON 350.1.13.10 ity [place] [facility] 4.2.7.2.686 Emanuel as [id number] [facility] 009 Chromo 2022-10-18 2022-10-18 Telephone [facility] 1.2.840.114 [id number] Univers 00:00:00 00:00:00 [facility] 350.1.13.10 it y of [place] 4.2.7.2.686 Emanuel as JOLLY?BLEA [phone] De gabi Spencer [facility] OFFICE [facility] 2022-10-15 2022-10-15 Outpatient R KASSIDY [facility] [id number] Univers 10:45:00 11:31:42 LAYNE ity of [facility] 2022-10-15 2022-10-15 Office Beckie Eugene [facility] 1. 2.840.114 [id number] Univers 10:45:00 11:31:42 Visit Layne Rothman SPECIALTY 350.1.13.10 ity of [facility] 4.2.7.2.686 [place] [facility] AT [phone] De gabi [address] [place] [address] 2022-10-12 2022-10-12 Reffranchesca [facility]PRES[facility] 1.2.840.114 [id number] Univers 00:00:00 00:00:00 [facility] 350.1.13.10 it y of [place] [facility] 4.2.7.2.686 Emanuel as JOLLY?BLEA [phone] De gabi CHAIREZ [address] [place] [address] 2022-10-07 2022-10-07 Emergency X [facility] ERT [id number] Univers 11:11:00 13:18:00 DESTINY ity [facility] 2022-10-07 2022-10-[address] [facility] 1.2.527.956 [id number] Univers 11:11:00 13:18:00 Destiny GREGORIO 350.1.13.10 i ty of [place] 4.2.7.2.686 [place] WARNER ROBINS [id number] [facility] 084 Chromo 2022-10-07 2022-10-07 Office [facility] 1.2.840.114 [id number] Univers 09:45:00 10:00:00 Visit [facility] 350.1.13.10 it y [facility] 4.2.7.2.686 Emanuel as JOLLY?BLEA [phone] De gabi CHAIREZ [address] [place] [address] [facility] 2022-10-07 2022-10-07 Outpatient R VAN [facility] [id number] Univers 09:45:00 08:37:42 ELISHA flores [facility] 2022-10-04 2022-10-04 [facility] 1.2.840.114 [id number] Univers 00:00:00 00:00:00 [facility] 350.1.13.10 it y of [place] 4.2.7.2.686 Emanuel as JOLLY?BLEA [id number] [address] [facility] 2022-09-28 2022-09-28 [facility] [id number] 1100 [facility] 08:00:00 08:00:00 TRAY flores [facility] 2022-09-10 2022-09-10 [facility] 1.2.840.114 [id number] [facility] 00:00:00 00:00:00 [facility] 350.1.13.10 it y of [place] 4.2.7.2.686 Emanuel as JOLLY?BLEA [id number] [address] [facility] 2022-09-08 2022-09-08 [facility] 1.2.840.114 [id number] Univers 00:00:00 00:00:00 Tray HEALTH 350.1.13.10 it y of [place] 4.2.7.2.686 Emanuel as JOLLY?BLEA [phone] [address] [facility] 2022-09-08 2022-09-08 Nurse Delilah OLGUIN 1.2.840.114 [id number] Univers 00:00:00 00:00:00 Triage dMelony 350.1.13.10 ity of HOSPITAL 4.2.7.2.686 Emanuel as [id number] [address] 2022-09-06 2022-09-06 [facility] Hospitalfranchesca PaualPRES[facility]TER[facility] 1.2.840.114 [id number] Univers 00:00:00 00:00:00 Wondiful A HEALTH 350.1.13.10 ity of [place] 4.2.7.2.686 Emanuel as JOLLY?BLEA [id number] [address] MEDICAL OFF[address] [facility] 2022-09-06 2022-09-06 Refill Lakeshia [facility] 1.2.793.893 [id number] [id number] Univers 00:00:00 00:00:00 Cecile GREGORIO 350.1.13.10 i ty of [place] 4.2.7.2.686 [place] [facility] [id number] De gabi [address] 2022-09-03 2022-09-03 Outpatient R MISTY [facility] [id number] Univers 11:30:00 11:48:06 KAMILLA flores [facility] 2022-09-03 2022-09-03 Office [facility] 1.2.840.114 [id number] Univers 11:30:00 11:48:06 Visit Kamilla [facility] 350.1.13.10 it y of [place] 4.2.7.2.686 Emanuel as JOLLY?BLEA [id number] [address] [facility] 2022-08-30 2022-08-30 Patient Doctor [facility] 1.2.840.114 [id number] Univers 00:00:00 00:00:00 Secure Msg Unassigned, [facility] 350.1.13.10 ity of [place] 4.2.7.2.686 [place] [id number] [address] 2022-08-24 2022-08-24 Outpatient R RIK [facility] [id number] Univers 09:00:00 09:00:00 TRAY flores [facility] 2022-08-24 2022-08-24 Office [facility]ikPRES[facility]TER[facility] 1.2.840.114 [id number] Univers 09:00:00 09:00:00 Visit [facility] 350.1.13.10 it y of [place] 4.2.7.2.686 Emanuel as JOLLY?BLEA [id number] [address] 2022-08-24 2022-08-24 Outpatient R RIK [facility] [id number] Univers 09:00:00 08:53:13 TRAY flores [facility] 2022-08-24 2022-08-24 Reffranchesca PaulaPRESBYTERIAN [facility] 1.2.840.114 [id number] Univers 00:00:00 00:00:00 Wondiful A HEALTH 350.1.13.10 ity of [place] 4.2.7.2.686 Emanuel as JOLLY?BLEA [id number] [address] MEDICAL OFF[address] [facility] 2022-08-22 2022-08-22 [facility]franchesca NisaPRESBYTERIAN [facility] 1.2.840.114 [id number] Univers 00:00:00 00:00:00 Wondiful A HEALTH 350.1.13.10 ity of [place] 4.2.7.2.686 Emanuel as JOLLY?BLEA [phone] [address] 2022-08-13 2022-08-13 Outpatient R MARY JANE [facility] [id number] Univers 14:00:00 14:00:00 AN flores [facility] 2022-08-06 2022-08-06 Telephone KikaceciliaPRESBYTERIAN [facility]ANT[facility] 1.2.840.114 [id number] Univers 00:00:00 00:00:00 Tray HEALTH 350.1.13.10 it y of Edbrittnee [place] 4.2.7.2.686 Emanuel as JOLLY?BLEA [phone] [address] 2022-08-05 2022-08-05 Orders Doctor BON 1.2.840.114 [id number] Univers 00:00:00 00:00:00 Only Unassigned, GRAYSON 350.1.13.10 ity of [place] [facility] 4.2.7.2.686 Emanuel as [id number] [facility] 009 Chromo 2022-07-30 2022-07-30 Patient Doctor BON 1.2.840.114 [id number] Univers 00:00:00 00:00:00 Secure Msg Unassigned, GRAYSON 350.1.13.10 ity of [place] [facility] 4.2.7.2.686 Emanuel as [id number] [facility] 019 Chromo 2022-07-29 2022-07-29 [facility] 1.2.840.114 [id number] Univers 00:00:00 00:00:00 [facility] 350.1.13.10 it y of [place] 4.2.7.2.686 Emanuel as JOLLY?BLEA [phone] [address] [facility] 2022-07-27 2022-07-27 Outpatient [facility] [id number] Univers 08:00:00 08:25:43 TRAY ity of [facility] 2022-07-27 2022-07-27 Office [facility] 1.2.840.114 [id number] Univers 08:00:00 08:25:43 Visit [facility] 350.1.13.10 it y of [place] 4.2.7.2.686 Emanuel as JOLLY?BLEA [id number] [address] [facility] 2022-07-19 2022-07-19 Orders Doctor BON 1.2.840.114 [id number] Univers 00:00:00 00:00:00 Only Unassigned, GRAYSON 350.1.13.10 ity of [place] [facility] 4.2.7.2.686 Emanuel as [id number] [address] 2022-07-08 2022-07-08 Refill [facility] 1.2.840.114 [id number] Univers 00:00:00 00:00:00 Tray AURORA 350.1.13.10 i ty of [place] 4.2.7.2.686 [place] [id number] [address] 2022-07-07 2022-07-07 Outpatient R STELLA WORLEY [facility] [id number] Univers 00:00:00 00:00:00 STELLA WORLEY it y of [facility] 2022-07-01 2022-07-01 Orders Doctor BON 1.2.840.114 [id number] Univers 00:00:00 00:00:00 Only Unassigned, GRAYSON 350.1.13.10 ity of [place] [facility] 4.2.7.2.686 Emanuel as [id number] [address] 2022-06-30 2022-06-30 Outpatient R STELLA WORLEY [facility] [id number] Univers 09:34:33 23:59:00 STELLA WORLEY it y of [facility] 2022-06-30 2022-06-30 [facility] Stella Worley IDFRANDY 1.2.840.114 [id number] Univers 09:34:33 23:59:00 Encounter [place] 350.1.13.10 it[facility] 4.2.7.2.686 [place] [facility] [id number] [place] [id number] Chromo 2022-06-30 2022-06-30 [facility] Stella Worley [facility] 1.2.840.114 [id number] Univers 09:34:16 23:59:00 Encounter [place] 350.1.13.10 ity of [facility] 4.2.7.2.686 [place] [facility] [id number] [place] [id number] Chromo 2022-06-30 2022-06-30 Orders Doctor BON 1.2.840.114 [id number] Univers 00:00:00 00:00:00 Only Unassigned, GRAYSON 350.1.13.10 ity of [place] [facility] 4.2.7.2.686 Emanuel as [id number] [facility] 009 Chromo 2022-06-30 2022-06-30 Telephone AiyanaStella [facility] 1.2.840.114 [id number] Univers 00:00:00 00:00:00 HEALTH 350.1.13.10 it y of [place] 4.2.7.2.686 [place] BON WIER [id number] [place] [id number] Chromo OFFICE BUILDING 2022-06-29 2022-06-29 Patient Doctor BON 1.2.840.114 [id number] Univers 00:00:00 00:00:00 Secure Msg Unassigned, GRAYSON 350.1.13.10 ity of [place] [facility] 4.2.7.2.686 Emanuel as [id number] [facility] 019 Chromo 2022-06-24 2022-06-24 Outpatient R STELLA WORLEY [facility] [id number] Univers 00:00:00 00:00:00 STELLA WORLEY y of [facility] 2022-06-24 2022-06-24 Telephone AiyanaStella [facility] 1.2.840.114 [id number] Univers 00:00:00 00:00:00 HEALTH 350.1.13.10 it y of [place] 4.2.7.2.686 [place] [id number] [address] OFFICE BUILDING 2022-06-21 2022-06-21 Outpatient R RIK [facility] [id number] Univers 11:00:00 11:00:00 TRAY ity of [facility] 2022-06-21 2022-06-21 Telephone [facility] 1.2.840.114 [id number] Univers 00:00:00 00:00:00 Tray HEALTH 350.1.13.10 it y of [place] 4.2.7.2.686 Emanuel as JOLLY?BLEA [id number] De samirroshan CHAIREZ [address] [place] [address] OFFICE BUILDING 2022-06-17 2022-06-17 Office Stella Worley [facility] 1.2.840.114 [id number] Univers 11:00:00 11:30:00 Visit HEALTH 350.1.13.10 it y of [place] 4.2.7.2.686 [place] [id number] [address] OFFICE BUILDING 2022-06-17 2022-06-17 Outpatient R STELLA WORLEY [facility] [id number] Univers 11:00:00 11:00:00 STELLA WORLEY it y of [facility] 2022-06-17 2022-06-17 Refill Stella Worley [facility] 1.2.840.114 [id number] Univers 00:00:00 00:00:00 HEALTH 350.1.13.10 it y of [place] 4.2.7.2.686 [place] [id number] [address] OFFICE BUILDING 2022-06-17 2022-06-17 Orders Doctor BON 1.2.840.114 [id number] Univers 00:00:00 00:00:00 Only Unassigned, GRAYSON 350.1.13.10 ity of [place] [facility] 4.2.7.2.686 Emanuel as [id number] [address] 2022-06-16 2022-06-16 Telephone [facility] 1.2.840.114 [id number] Univers 00:00:00 00:00:00 [facility] 350.1.13.10 it y of [place] 4.2.7.2.686 Emanuel as JOLLY?BLEA [phone] [facility] JACOBS[address] [facility] 2022-06-15 2022-06-15 Outpatient [facility] [id number] [facility] 08:00:00 08:25:29 TRAY ity [facility] 2022-06-15 2022-06-15 Office [facility] 1.2.840.114 [id number] Univers 08:00:00 08:25:29 Visit [facility] 350.1.13.10 it y of [place] 4.2.7.2.686 Emanuel as JOLLY?BLEA [phone] [address] [facility] 2022-06-14 2022-06-14 Telephone [facility] 1.2.840.114 [id number] Univers 00:00:00 00:00:00 Cec[facility]michelle [facility] 350.1.13.10 i ty of [place] 4.2.7.2.686 [place] [id number] [address] 2022-06-11 2022-06-11 Telephone [facility] 1.2.840.114 [id number] Univers 00:00:00 00:00:00 [facility] 350.1.13.10 it y of [place] 4.2.7.2.686 Emanuel as JOLLY?BLEA [id number] [address] [facility] 2022-06-09 2022-06-09 Telephone [facility] 1.2.840.114 [id number] Univers 00:00:00 00:00:00 Tray HEALTH 350.1.13.10 it y of [place] 4.2.7.2.686 Emanuel as JOLLY?BLEA [id number] [address] [facility] 2022-06-04 2022-06-04 Stella Barrow [facility] 1.2.840.114 [id number] Univers 00:00:00 00:00:00 HEALTH 350.1.13.10 it y of [place] 4.2.7.2.686 [place] [id number] [address] [facility] 2022-06-04 2022-06-04 Telephone NurseRy [facility] 1.2.840.114 [id number] Univers 00:00:00 00:00:00 Db HEALTH 350.1.13.10 it y of [place] 4.2.7.2.686 Emanuel as JOLLY?BLEA [id number] De dicroshan KNEY 044 [facility] [facility] 2022-06-04 2022-06-04 Refill [facility] 1.2.479.459 [id number] Univers 00:00:00 00:00:00 Cecile JG 350.1.13.10 i ty of [place] 4.2.7.2.686 [place] [id number] De dicroshan NAL 188 [facility] 2022-06-03 2022-06-03 Outpatient R STELLA WORLEY [facility] [id number] Univers 09:30:00 09:30:00 STELLA WORLEY it y of [facility] 2022-06-02 2022-06-02 Stella Barrow [facility] 1.2.840.114 96 [id number] Univers 00:00:00 00:00:00 HEALTH 350.1.13.10 it y of [place] 4.2.7.2.686 [place] [id number] [address] [facility] 2022-06-02 2022-06-02 Stella Barrow [facility] 1.2.840.114 [id number] Univers 00:00:00 00:00:00 HEALTH 350.1.13.10 it y of [place] 4.2.7.2.686 [place] [id number] [address] [facility] 2022-06-02 2022-06-02 Telephone [facility] 1.2.840.114 96 [id number] Univers 00:00:00 00:00:00 Cecile JG 350.1.13.10 i ty of [place] 4.2.7.2.686 [place] [id number] Me dical NAL 188 [facility] 2022-06-01 2022-06-01 Orders Doctor BON 1.2.840.114 [id number] Univers 00:00:00 00:00:00 Only Unassigned, GRAYSON 350.1.13.10 ity [place] [facility] 4.2.7.2.686 Emanuel as [id number] [address] 2022-06-01 2022-06-01 Stella Barrow [facility] 1.2.840.114 96 [id number] Univers 00:00:00 00:00:00 HEALTH 350.1.13.10 it y of [place] 4.2.7.2.686 [place] [id number] [address] [facility] 2022-06-01 2022-06-01 Susan Asher [facility] 1.2.539.497 [id number] [id number] Univers 00:00:00 00:00:00 Cecile GREGORIO 350.1.13.10 i ty of [place] 4.2.7.2.686 [place] STEPHAN[place] [id number] [facility] 188 [facility] 2022-05-28 2022-05-28 Susan Jolly [facility] 1.2.840.114 [id number] Univers 00:00:00 00:00:00 Tray HEALTH 350.1.13.10 it y of [place] 4.2.7.2.686 Emanuel as JOLLY?BLEA [id number] [facility] ARLENEEY 044 [facility] OFFICE [facility] 2022-05-26 2022-05-26 Stella Barrow [facility] 1.2.840.114 [id number] Univers 00:00:00 00:00:00 HEALTH 350.1.13.10 it y of [place] 4.2.7.2.686 [place] [id number] [address] [facility] 2022-05-18 2022-05-18 Outpatient DAPHNEY DIAZ [facility] [id number] Univers 09:00:00 09:00:[address] [facility] 2022-05-17 2022-05-17 Outpatient Brock JOLLY [facility] [id number] Univers 09:00:00 09:00:00 TRAY flores [facility] 2022-05-13 2022-05-13 Orders Doctor BNO 1.2.840.114 [id number] Univers 00:00:00 00:00:00 Only Unassigned, GRAYSON 350.1.13.10 ity of [place] [facility] 4.2.7.2.686 Emanuel as [id number] [address] 2022-05-13 2022-05-13 Telephone [facility] 1.2.840.114 [id number] Univers 00:00:00 00:00:00 [facility] 350.1.13.10 it y of [place] 4.2.7.2.686 Emanuel as JOLLY?BLEA [id number] De samirroshan JACOBS[address] OFFICE BUILDING 2022-05-10 2022-05-10 Outpatient R RIK [facility] [id number] Univers 16:15:00 16:15:00 TRAY flores [facility] 2022-05-10 2022-05-10 Outpatient R STELLA WORLEY [facility] [id number] Univers 00:00:00 00:00:00 STELLA WORLEY it jay of [facility] 2022-05-06 2022-05-06 Telephone Stella Worley [facility] 1.2.840.114 [id number] Univers 00:00:00 00:00:00 HEALTH 350.1.13.10 it y of [place] 4.2.7.2.686 [place] barry L[place]NN [id number] [address] OFFICE BUILDING 2022-05-06 2022-05-06 Orders Doctor BON 1.2.840.114 [id number] Univers 00:00:00 00:00:00 Only Unassigned, GRAYSON 350.1.13.10 ity of [place] [facility] 4.2.7.2.686 Emanuel as [id number] [address] 2022-04-29 2022-04-29 Outpatient Brock AGUILAR [facility] [id number] Univers 14:00:00 14:00:00 BON flores [facility] 2022-04-28 2022-04-28 Patient Doctor [facility] 1.2.840.114 [id number] Univers 00:00:00 00:00:00 Secure Msg Unassigned, HEALTH 350.1.13.10 ity of [place] [facility] 4.2.7.2.686 [place] - [phone] [facility] 408 [address] 2022-04-14 2022-04-14 Outpatient R ROXANNE VIK [facility] [id number] Univers 09:00:00 09:00:[address] [facility] 2022-04-12 2022-04-12 Susan [facility]PRES[facility] 1.2.840.114 [id number] Univers 00:00:00 00:00:00 Sendil Kaley [facility] 350.1.13.10 ity of [place] 4.2.7.2.686 [place] [id number] De dical [facility] 059 [facility] 2022-04-09 2022-04-09 Outpatient R MOMO [facility] [id number] Univers 11:00:00 11:00:00 ISAC flores [facility] 2022-04-08 2022-04-08 [facility] 1.2.840.114 [id number] Univers 08:30:00 23:59:[address] [facility] HEALTH 350.1.13.10 ity of [place] 4.2.7.2.686 [place] [id number] [facility] 038 Chrom[address] OFFICE BUILDING 2022-04-08 2022-04-08 Outpatient R AGUSTINA [facility] [id number] Univers 08:30:00 23:59:00 KAMAKSHI ity o f [facility] 2022-04-08 2022-04-08 Telephone Stella Worley [facility] 1.2.840.114 [id number] Univers 00:00:00 00:00:00 HEALTH 350.1.13.10 [place] [phone] [facility] [address] OFFICE BUILDING 2022-04-02 2022-04-02 Outpatient R MARY JANE [facility]DENA [facility] [id number] Univers 09:30:00 09:30:00 AN flores [facility] 2022-03-31 2022-03-31 Telephone [facility] 1.2.840.114 [id number] Univers 00:00:00 00:00:00 Tray HEALTH 350.1.13.10 it y of [place] 4.2.7.2.686 Emanuel as JOLLY?BLEA [phone] [address] [facility] 2022-03-27 2022-03-[address] [facility] [id number] Univers 07:48:00 08:22:00 Destinyvickie GREGORIO 350.1.13.10 i ty of [place]7.2.686 [place] [facility] [id number] [address] 2022-03-27 2022-03-27 Emergency X [facility] ERT [id number] Univers 07:48:00 08:22:00 DESTINY ity of [facility] 2022-03-27 2022-03-27 Orders Doctor BON 1.2.840.114 [id number] Univers 00:00:00 00:00:00 Only Unassigned, GRAYSON 350.1.13.10 ity of [place] [facility] 4.2.7.2.686 Emanuel as [id number] [address] 2022-03-24 2022-03-24 Telephone [facility] 1.2.840.114 [id number] Univers 00:00:00 00:00:00 Tray HEALTH 350.1.13.10 it y of [place] 4.2.7.2.686 Emanuel as JOLLY?BLEA [id number] [address] [facility] 2022-03-19 2022-03-19 Orders Doctor BON 1.2.840.114 [id number] Univers 00:00:00 00:00:00 Only Unassigned, GRAYSON 350.1.13.10 ity of [place] [facility] 4.2.7.2.686 Emanuel as [id number] [address] 2022-03-19 2022-03-19 Telephone [facility] 1.2.840.114 [id number] Univers 00:00:00 00:00:00 Tray HEALTH 350.1.13.10 it y of [place] 4.2.7.2.686 Emnauel as JOLLY?BLEA [id number] De gabi CHAIREZ [address] MEDICAL OFFICE BUILDING 2022-03-17 2022-03-17 Telephone [facility] 1.2.840.114 [id number] Univers 00:00:00 00:00:00 Tray HEALTH 350.1.13.10 it y of [place] 4.2.7.2.686 Emanuel as JOLLY?BLEA [phone] De gabi CHAIREZ [address] MEDICAL OFFICE BUILDING 2022-03-15 2022-03-15 Patient Doctor [facility] 1.2.840.114 [id number] Univers 00:00:00 00:00:00 Secure Msg Unassigned, HEALTH 350.1.13.10 ity of [place] 4.2.7.2.686 Emanuel as JOLLY?BLEA [phone] De gabi CHAIREZ [address] MEDICAL OFFICE BUILDING 2022-03-12 2022-03-12 Stella Barrow [facility] 1.2.840.114 [id number] Univers 00:00:00 00:00:00 HEALTH 350.1.13.10 it [place] of [place]2.[place] [phone] [place] [id number] OFFICE BUILDING 2022-03-08 2022-03-08 Telephone [facility] 1.2.840.114 [id number] Univers 00:00:00 00:00:00 Tray HEALTH 350.1.13.10 it y of [place] 4.2.7.2.686 Emanuel as JOLLY?BLEA [phone] De gabi CHAIREZ 044 [address] MEDICAL OFFICE BUILDING 2022-03-02 2022-03-02 Outpatient [facility] MARCUS [id number] Univers 07:39:00 11:22:00 CECILE [address]ores of [facility] 2022-03-02 2022-03-02 [facility] 1.2.840.114 [id number] Univers 07:39:00 11:22:00 Encounter Cecile GREGORIO 350.1.13.10 ity of [place].2.7.2.686 [place] SUR[place]ICAL [phone] [facility] [address]71 [address] 2022-03-02 2022-03-02 Surgery [facility] 1.2.155.112 3619 7779 Univers 09:11:00 10:25:00 Cecilemichelle GREGORIO 350.1.13.10 i ty of [place] 4.2.7.2.686 [place]ICAL [phone] [facility] 020 Branch 2022-03-02 2022-03-02 Orders Doctor BON 1.2.840.114 [id number] Univers 00:00:00 00:00:00 Only Unassigned, GRAYSON 350.1.13.10 ity [place] [facility] 4.2.7.2.686 Emanuel as [phone] [facility] 009 Branch 2022-03-01 2022-03-01 Telephone [facility] 1.2.840.114 [id number] Univers 00:00:00 00:00:00 Cecile GREGORIO 350.1.13.10 i ty of [place] 4[place]2.7.2.[place]ESS[place] [id number] De dical NAL [address] [facility] 2022-03-01 2022-03-01 Susan [facility] 1.2.840.114 [id number] Univers 00:00:00 00:00:00 Ricardo GREGORIO 350.1.13.10 ity of [place].2.686 [place] [id number] De dical NAL 059 [facility] 2022-02-25 2022-02-25 Outpatient Brock JOLLY [facility] [id number] Univers 11:00:00 11:00:00 TRAY ity of [facility] 2022-02-25 2022-02-25 Patient Stella Worley [facility] 1.2.840.114 [id number] Univers 00:00:00 00:00:00 Secure [facility] 350.1.13.10 ity of [place] 4.2.7.2.686 [place]NN [id number] [facility] 092 Branch OFFICE BUILDING 2022-02-25 2022-02-25 Telephone Stella Worley [facility] 1.2.840.114 [id number] Univers 00:00:00 00:00:00 HEALTH 350.1.13.10 it y of [place] 4.2.7.2.686 [place] [phone] [place] [address] Branch OFFICE BUILDING 2022-02-24 2022-02-24 Telephone [facility] 1.2.840.114 [id number] Univers 00:00:00 00:00:00 Tray HEALTH 350.1.13.10 it y of [place] 4.2.7.2.686 Emanuel as JOLLY?BLEA [phone] [address] [facility] 2022-02-23 2022-02-23 [facility] 12.840.114 [id number] [id number] Univers 00:00:00 00:00:00 Tray HEALTH 350.1.13.10 it y of [place] 4.2.7.2.686 Emanuel as JOLLY?BLEA [id number] [address] [facility] 2022-02-22 2022-02-22 [facility] 1.2.840.114 [id number] 022 Univers 00:00:00 00:00:00 Wondiful A HEALTH 350.1.13.10 ity of [place] 4.2.7.2.686 Emanuel as JOLLY?BLEA [id number] [address] [facility] 2022-02-18 2022-02-18 Patient [facility] 1.2.840.114 [id number] Univers 00:00:00 00:00:00 Secure Msg Tray HEALTH 350.1.13.10 ity of [place] 4.2.7.2.686 Emanuel as JOLLY?BLEA [id number] [address] [facility] 2022-02-18 2022-02-18 Telephone [facility] 1.2.840.114 [id number] [id number] Univers 00:00:00 00:00:00 Tray [place] 350.1.13.10 i ty of [place] 4.2.7.2.686 [place] KAHLILIO [phone] [facility] [address] 2022-02-16 2022-02-16 Outpatient R RIK [facility] [id number] Univers 09:15:00 09:30:10 TRAY jay [facility] 2022-02-16 2022-02-16 Office [facility] 1.2.840.114 [id number] Univers 09:15:00 09:30:10 Visit Tray [facility] 350.1.13.10 it y of [place] 4.2.7.2.686 Emanuel as JOLLY?BLEA [id number] [address] [facility] 2022-02-16 2022-02-16 Outpatient R RIK [facility] [id number] Univers 09:15:00 09:15:00 TRAY [facility] 2022-02-16 2022-02-16 Telephone Vik Oliveria [facility] 1..840.114 [id number] Univers 00:00:00 00:00:00 HEALTH 350.1.13.10 it y of [place] 4.2.7.2.[place] [id number] [address] [facility] 2022-02-15 2022-02-15 Outpatient R FLORENCE [facility] [id number] Univers 15:15:00 15:15:00 CAPRICE jay [facility] 2022-02-14 2022-02-14 Nurse BON Zarate 1.2.511.283 [id number] Univers 00:00:00 00:00:00 Triage Young GALICIA 350.1.13.10 it y of HOSPITAL 4.2.7.2.686 Emanuel as [phone] [address] 2022-02-12 2022-02-12 Telephone Rik [facility] 1.2.840.114 [id number] Univers 00:00:00 00:00:00 [facility] 350.1.13.10 it y of [place] 4.2.7.2.686 Emanuel as JOLLY?BLEA [id number] [address] [facility] 2022-02-11 2022-02-11 Telephone Stella Worley [facility] 1.2.840.114 [id number] Univers 00:00:00 00:00:00 HEALTH 350.1.13.10 it y of [place].2.7.2.686 [place] [id number] [address] OFFICE BUILDING 2022-02-11 2022-02-11 Telephone Vik Oliveira [facility] 1.2.840.114 [id number] Univers 00:00:00 00:00:00 HEALTH 350.1.13.10 it y of [place] 4.2.7.2.686 [place] [phone] [address] OFFICE BUILDING 2022-02-10 2022-02-10 Outpatient R [facility] [id number] Univers 00:00:00 00:00:[address] [facility] 2022-02-10 2022-02-10 Outpatient Brock ANTONIO NAV [facility] [id number] Univers 00:00:00 00:00:00 ity [facility] 2022-02-10 2022-02-10 Orders Doctor BON 1.2.840.114 [id number] Univers 00:00:00 00:00:00 Only Unassigned, GRAYSON 350.1.13.10 ity of [place] [facility] 4.2.7.2.686 Emanuel as [id number] [address] 2022-02-08 2022-02-08 Outpatient R STELLA WORLEY [facility] [id number] Univers 10:00:00 11:34:48 STELLA WORLEY it y of [facility] 2022-02-08 2022-02-08 Office Stella Worley [facility] 1.2.840.114 [id number] Univers 10:00:00 11:34:48 Visit HEALTH 350.1.13.10 it y of [place] 4[place]2.7.2.686 [place] [id number] [address] OFFICE BUILDING 2022-02-01 2022-02-01 Telephone Momo IDFRANDY 1.2.424.561 [id number] [id number] Univers 00:00:00 00:00:00 Isac S HEALTH 350.1.13.10 it y of [place] 4.2.7.2.686 Emanuel as JOLLY?BLEA [phone] De dical CONTRERAS [address] MEDICAL OFFICE BUILDING 2022-01-28 2022-01-28 Orders Doctor BON 1.2.840.114 [id number] Univers 00:00:00 00:00:00 Only Unassigned, GRAYSON 350.1.13.10 ity of [place] [facility] 4.2.7.2.686 Emanuel as [phone] [address] 2022-01-27 2022-01-27 Patient Doctor [facility] 1.2.840.114 [id number] Univers 00:00:00 00:00:00 Secure Msg Unassigned, HEALTH 350.1.13.10 ity of [place] [facility] 4.2.7.2.686 Emanuel as JOLLY?BLEA [id number] De dicroshan CHAIREZ 044 [facility] OFFICE [facility] 2022-01-27 2022-01-27 Patient [facility] 1.2.840.114 [id number] Univers 00:00:00 00:00:00 Secure Msg [facility] 350.1.13.10 ity of [place] 4.2.7.2.686 Emanuel as JOLLY?BLEA [phone] De gabi JACOBS[address] [facility] 2022-01-27 2022-01-27 [facility] 1.2.840.114 [id number] Univers 00:00:00 00:00:00 [facility] 350.1.13.10 it y of [place] 4.2.7.2.686 Emanuel as JOLLY?BLEA [id number] De gabi CHAIREZ [address] [place] [address] [facility] 2022-01-27 2022-01-27 Telephone [facility] 1.2.840.114 [id number] Univers 00:00:00 00:00:00 [facility] HEALTH 350.1.13.10 it y of [place] 4.2.7.2.686 Emanuel as JOLLY?BLEA [id number] De gabi JACOBS[address] [facility] 2022-01-27 2022-01-27 Telephone Vik Oliveira [facility] 1.2.840.114 [id number] Univers 00:00:00 00:00:00 HEALTH 350.1.13.10 it y of [place]2.[place].2.686 [place] BON WIER [phone] [facility] [address] OFFICE BUILDING 2022-01-25 2022-01-[address] [facility] [id number] Univers 10:20:49 23:59:00 AN ity [facility] 2022-01-25 2022-01-25 [facility] 1.2.840.114 [id number] Univers 10:00:00 23:59:00 Encounter An BYERSCHRISTELLE 350.1.13.10 ity of [place] 4.2.7.2.686 [place] [facility] [id number] [facility] [address] 2022-01-25 2022-01-25 [facility] [id number] Univers 00:00:00 00:00:00 AN flores [facility] 2022-01-25 2022-01-25 Orders Doctor BON 1.2.840.114 [id number] Univers 00:00:00 00:00:00 Only Unassigned, GRAYSON 350.1.13.10 [place] [facility] 4.2.7.2.686 Emanuel as [phone] [address] 2022-01-22 2022-01-22 [facility] 1.2.840.114 [id number] Univers 00:00:00 00:00:00 [facility] 350.1.13.10 it y of [place] 4.2.7.2.686 Emanuel as JOLLY?BLEA [phone] [address] [facility] 2022-01-22 2022-01-22 Orders Doctor BON 1.2.840.114 [id number] Univers 00:00:00 00:00:00 Only Unassigned, GRAYSON 350.1.13.10 it[place] [facility] 4.2.7.2.686 Emanuel as [phone] [address] 2022-01-21 2022-01-21 Susan [facility] 1.2.840.114 [id number] Univers 00:00:00 00:00:00 Wondiful A HEALTH 350.1.13.10 ity of [place] 4.2.7.2.686 Emanuel as JOLLY?BLEA [phone] De gabi CHAIREZ [address] [place] [address] 2022-01-20 2022-01-20 [facility] 1.2.840.114 [id number] Univers 00:00:00 00:00:00 Wondiful A HEALTH 350.1.13.10 ity of [place] 4.2.7.2.686 Emanuel as JOLLY?BLEA [id number] De gabi JACOBS[address] 2022-01-19 2022-01-19 Telephone [facility] 12.840.114 [id number] [id number] Univers 00:00:00 00:00:00 Tray HEALTH 350.1.13.10 it y of [place] 4.2.7.2.686 Emanuel as JOLLY?BLEA [id number] De gabi CHAIREZ [address] [place] [address] 2022-01-18 2022-01-18 [facility] 1.2.840.114 [id number] Univers 00:00:00 00:00:00 Tray HEALTH 350.1.13.10 it y of [place] 4.2.7.2.686 Emanuel as JOLLY?BLEA [id number] De gabi CHAIREZ [address] [place] [address] 2022-01-13 2022-01-13 Telephone [facility] 12.840.114 [id number] Univers 00:00:00 00:00:00 Miroslava [place] 350.1.13.10 i ty of [place] 4.2.7.2.686 [place] PROFESS[place] [id number] De gabi [address] 2022-01-11 2022-01-11 Outpatient Brock BARR [facility] [id number] Univers 14:45:00 23:59:00 ISAC itjay [facility] 2022-01-11 2022-01-11 Outpatient Brock BARR [facility] [id number] Univers 14:45:00 23:59:00 ISAC [facility] 2022-01-11 2022-01-11 Office [facility] 1.2.840.114 [id number] Univers 13:45:00 14:00:00 Visit Isac HEALTH 350.1.13.10 it y of [place] 4.2.7.2.686 Emanuel as JOLLY?BLEA [phone] De gabi CHAIREZ 198 [facility] OFFICE [facility] 2022-01-11 2022-01-11 Outpatient R [facility] [id number] Univers 13:45:00 13:45:00 ISAC [facility] 2022-01-07 2022-01-07 Telephone [facility] 1.2.840.114 [id number] Univers 00:00:00 00:00:00 Tray HEALTH 350.1.13.10 it y of [place] 4.2.7.2.686 Emanuel as JOLLY?BLEA [phone] De gabi CHAIREZ [address] [place] [address] [facility] 2022-01-06 2022-01-06 Telephone [facility] 1.2.840.114 [id number] [id number] Univers 00:00:00 00:00:00 Wondiful A HEALTH 350.1.13.10 ity of [place] 4.2.7.2.686 Emanuel as JOLLY?BLEA [id number] De gabi CHAIREZ [address] [place] [address] [facility] 2022-01-05 2022-01-05 Telephone [facility] 1.2.840.114 [id number] Univers 00:00:00 00:00:00 Tray HEALTH 350.1.13.10 it y of [place] 4.2.7.2.686 Emanuel as JOLLY?BLEA [id number] De gabi CHAIREZ [address] [place] [address] [facility] 2022-01-04 2022-01-04 Telephone [facility] 1.2.840.114 [id number] Univers 00:00:00 00:00:00 Tray HEALTH 350.1.13.10 it y of [place] 4.2.7.2.686 Emanuel as JOLLY?BLEA [phone] De gabi CHAIREZ [address] [place] [address] [facility] 2022-01-01 2022-01-01 Patient Doctor [facility] 1.2.840.114 [id number] Univers 00:00:00 00:00:00 Secure Msg Unassigned [facility] 350.1.13.10 [place]y [place] 4.2.7.2.686 Emanuel as JOLLY?BLEA [phone] De gabi CHAIREZ 198 [facility] OFFICE [facility] 2021-12-31 2021-12-31 Telephone [facility] 1.2.840.114 [id number] Univers 00:00:00 00:00:00 [facility] 350.1.13.10 it y of [place] 4.2.7.2.686 Emanuel as JOLLY?BLEA [id number] De gabi CHAIREZ 044 [facility] 2021-12-31 2021-12-31 Telephone [facility] 1.2.840.114 [id number] [id number] Univers 00:00:00 00:00:00 [facility] 350.1.13.10 it y of [place] 4.2.7.2.686 Emanuel as JOLLY?BLEA [phone] De gabi CHAIREZ 044 [facility] 2021-12-30 2021-12-30 Patient Jessie [facility] 1.2.840.114 [id number] Univers 00:00:00 00:00:00 Outreach Genesis Shah [facility] 350.1.13.10 ity of [place] 4.2.7.2.686 Emanuel as PROFESSIO [id number] De gabi BARNEY [address] [place] [address] ONE 2021-12-28 2021-12-28 Outpatient R LAKESHIA [facility] [id number] Univers 09:30:00 10:07:08 CECILE flores [facility] 2021-12-28 2021-12-28 Outpatient Brock ASHER [facility] [id number] Univers 09:30:00 10:07:08 CECILE flores [facility] 2021-12-28 2021-12-28 Office Lakeshia [facility] 1.2.056.840 [id number] Univers 09:30:00 10:07:08 Visit Cecile GREGORIO 350.1.13.10 i ty of [place] 4.2.7.2.686 [place] [phone] [address] 2021-12-24 2021-12-24 Outpatient R [facility] [id number] Univers 14:00:00 14:00:[address] [facility] 2021-12-24 2021-12-24 Patient [facility] 1.2.840.114 [id number] Univers 00:00:00 00:00:00 Secure Msg [facility] 350.1.13.10 ity of [place] 4.2.7.2.686 Emanuel as JOLLY?BLEA [phone] [address] [facility] 2021-12-22 2021-12-22 Patient [facility] 1.2.664.191 [id number] Univers 00:00:00 00:00:00 Secure Msg Cecile GREGORIO 350.1.13.10 ity of [place] 4.2.7.2.686 [place] [id number] [address] 2021-12-22 2021-12-22 Telephone [facility] 1.2.840.114 [id number] Univers 00:00:00 00:00:00 Cecile GREGORIO 350.1.13.10 i ty [facility] 4.2.7.2.686 [place] [phone] [address] 2021-12-16 2021-12-16 Telephone [facility] 1.2.840.114 [id number] [id number] Univers 00:00:00 00:00:00 [facility] 350.1.13.10 it y of [place] 4.2.7.2.686 Emanuel as JOLLY?BLEA [id number] [address] [facility] 2021-12-11 2021-12-11 Surgery [facility] 1.2.358.125 7183 9758 Univers 10:33:00 11:46:00 Cecile GREGORIO 350.1.13.10 i ty [facility] 4.2.7.2.686 [place] SURGICAL [id number] [facility] [address] 2021-12-11 2021-12-11 Surgery [facility] 1.2.942.169 [id number] 9758 Univers 10:33:00 11:46:00 Cecile GREGORIO 350.1.13.10 i ty of [place] 4.2.7.2.686 [place] SURGICAL [id number] [facility] [address] 2021-12-11 2021-12-11 Surgery [facility] 1.2.786.610 [id number] 9758 Univers 10:33:00 11:46:00 Cecile GREGORIO 350.1.13.10 i ty of [place] 4.2.7.2.686 [place] SURGICAL [phone] [facility] [address] 2021-12-11 2021-12-11 Outpatient R [facility] MARCUS 11583 [id number] Univers 08:40:00 11:25:00 CECILE [facility] 2021-12-11 2021-12-11 [facility] 1.2.840.114 [id number] Univers 08:40:00 11:25:00 Encounter Cecile JG 350.1.13.10 ity of [place] 4.2.7.2.686 [place] SURGICAL [id number] [facility] [address] 2021-12-11 2021-12-11 Outpatient R [facility] MARCUS 00540 [id number] Univers 08:40:00 11:25:00 [facility] 2021-12-11 2021-12-11 Outpatient R [facility] MARCUS [id number] Univers 08:40:00 11:25:00 CECILE [facility] 2021-12-11 2021-12-11 Orders Doctor OLGUIN 1.2.840.114 [id number] Univers 00:00:00 00:00:00 Only Unassigned, GRAYSON 350.1.13.10 [facility] 4.2.7.2.686 Emanuel as [id number] [address] 2021-12-09 2021-12-09 Telephone [facility] 1.2.840.114 [id number] Univers 00:00:00 00:00:00 Wondiful A HEALTH 350.1.13.10 ity of [place] 4.2.7.2.686 Emanuel as JOLLY?BLEA [phone] De gabi CHAIREZ 198 [facility] OFFICE [facility] 2021-12-08 2021-12-08 Outpatient R [facility] [id number] Univers 13:00:00 13:00:[address] [facility] 2021-12-08 2021-12-08 Telephone [facility] 1.2.840.114 [id number] Univers 00:00:00 00:00:00 Tray HEALTH 350.1.13.10 it y of [place] [facility] 4.2.7.2.686 Emanuel as JOLLY?BLEA [id number] De gabi CHAIREZ 044 [facility] 2021-12-08 2021-12-08 Telephone [facility] 1.2.840.114 [id number] [id number] Univers 00:00:00 00:00:00 Tray HEALTH 350.1.13.10 it y of [place] [facility] 4.2.7.2.686 Emanuel as JOLLY?BLEA [phone] De gabi CHAIREZ 044 [facility] 2021-12-03 2021-12-03 Outpatient R [facility] [id number] [facility] 13:30:00 13:30:00 ORPHEUS ity of [facility] 2021-12-03 2021-12-03 Telephone [facility] 1..840.114 [id number] Univers 00:00:00 00:00:00 Cecile GREGORIO 350.1.13.10 i ty of [place] 4.2.7.2.686 [place] [phone] De gabi BARNEY 188 [facility] 2021-12-03 2021-12-03 Telephone [facility] 1.2.840.114 [id number] Univers 00:00:00 00:00:00 Wondiful A HEALTH 350.1.13.10 ity of [facility] 4.2.7.2.686 Emanuel as PROFESSIO [phone] De dicroshan BARNEY 044 [facility] ONE 2021-12-01 2021-12-01 Outpatient R NISA [facility] [id number] Univers 14:15:00 14:54:12 WONDIFUL ity o f [facility] 2021-12-01 2021-12-01 Office [facility] 1.2.840.114 [id number] Univers 14:15:00 14:54:12 Visit Wondiful A HEALTH 350.1.13.10 ity of [place] 4.2.7.2.686 Emanuel as JOLLY?BLEA [id number] De gabi CHAIREZ [address] [place] [address] OFFICE BUILDING 2021-12-01 2021-12-01 [facility] [id number] Univers 14:15:00 14:54:12 WONDIFUL ity o f [facility] 2021-12-01 2021-12-01 Patient [facility] 1.2.840.114 [id number] Univers 00:00:00 00:00:00 Outreach Vik Bernadette HEALTH 350.1.13.10 i ty of [place] 4.2.7.2.686 Emanuel as JOLLY?BLEA [id number] De gabi CHAIREZ [address] [place] [address] OFFICE BUILDING 2021-12-01 2021-12-01 Patient Scot [facility] 1.2.840.114 [id number] Univers 00:00:00 00:00:00 Outreach Vik Fleming HEALTH 350.1.13.10 i ty of [place] 4.2.7.2.686 Emanuel as JOLLY?BLEA [phone] De dicroshan CHAIREZ [address] [place] [address] OFFICE BUILDING 2021-11-20 2021-11-20 Patient [facility] 1.2.840.114 [id number] Univers 00:00:00 00:00:00 Secure Msg Wondiful A HEALTH 350.1.13.10 ity of [place] 4.2.7.2.686 Emanuel as JOLLY?BLEA [phone] De dicroshan CHAIREZ [address] [place] [address] OFFICE BUILDING 2021-11-18 2021-11-18 [facility] [id number] Univers 10:00:00 10:44:34 WONDIFUL ity o f [facility] 2021-11-18 2021-11-18 Outpatient R NISA [facility] [id number] Univers 10:00:00 10:44:34 WONDIFUL ity o f [facility] 2021-11-18 2021-11-18 Outpatient R NISA [facility] [id number] Univers 10:00:00 10:00:00 WONDIFUL ity o f [facility] 2021-11-18 2021-11-18 Outpatient R NISA [facility] [id number] Univers 10:00:00 10:00:00 WONDIFUL ity o f [facility] 2021-11-18 2021-11-18 Outpatient R NISA [facility] [id number] Univers 10:00:00 10:00:00 WONDIFUL ity o f [facility] 2021-11-18 2021-11-18 [facility] [id number] Univers 00:00:00 00:00:00 Secure [facility] [id number] mark anderson [facility] [id number] Emanuel as JOLLY?BLEA [phone] [address] MEDICAL OFFICE BUILDING 2021-11-16 2021-11-16 Outpatient R LAKESHIA [facility] [id number] Univers 09:30:00 09:30:00 CECILE [facility] 2021-11-16 2021-11-16 Outpatient R LAKESHIA [facility] [id number] Univers 09:30:00 09:30:00 CECILE [facility] 2021-11-16 2021-11-16 Outpatient R LAKESHIA [facility] [id number] Univers 09:30:00 09:30:00 CECILE [facility] 2021-11-15 2021-11-15 Emergency X NINO [facility] ERT [id number] Univers 09:06:00 12:49:00 DESTINY [facility] 2021-11-15 2021-11-15 [facility] [id number] Univers 09:06:00 12:49:00 Destiny GREGORIO [id number] i ty [id number] WARN[place] [phone] [facility] 084 Chromo 2021-11-15 2021-11-15 Emergency X NINO, [facility] ERT [id number] Univers 09:06:00 12:49:00 DESTINY ity of [facility] 2021-11-10 2021-11-10 [facility]phone [facility] [id number] Univers 00:00:00 00:00:00 Wondiful [facility] [id number] ity of [place] [id number] Emanuel as JOLLY?BLEA [phone] [address] [facility] 2021-11-05 2021-11-05 Orders Doctor BON [id number] Univers 00:00:00 00:00:00 Only Unassigned, GRAYSON [id number] ity of [place] [facility] [id number] Emanuel as [phone] [facility] 009 Chromo 2021-11-05 2021-11-05 [facility] 1.2.840.114 [id number] Univers 00:00:00 00:00:00 Wondiful [facility] [id number] [facility] [id number] Emanuel as JOLLY?BLEA [phone] [address] [facility] 2021-11-03 2021-11-03 [facility] [id number] [id number] Univers 00:00:00 00:00:00 Wondiful A HEALTH 350.1.13.10 [facility] 4.2.7.2.686 Emanuel as JOLLY?BLEA [phone] [address] [facility] 2021-11-03 2021-11-03 [facility]phone [facility] 1.2.840.114 [id number] Univers 00:00:00 00:00:00 Wondiful A HEALTH 350.1.13.10 ity of [place] 4.2.7.2.686 Emanuel as JOLLY?BLEA [phone] De dical KNEY [address] MEDICAL OFFICE BUILDING 2021-10-27 2021-10-27 Patient Daphney Sánchez 1.2.840.114 [id number] Univers 00:00:00 00:00:00 Secure Msg H 350.1.13.10 ity of [place] 4.2.7.2.686 Emanuel as [phone] [place] 739380 [address] 2021-10-27 2021-10-27 Case Daphney Sánchez 1.2.840.114 [id number] Univers 00:00:00 00:00:00 Management H 350.1.13.[address] [facility] 4.2.7.2.686 Emanuel as [phone] [address] 2021-10-26 2021-10-26 Telephone Daphney Sánchez 1.2.840.114 [id number] Univers 00:00:00 00:00:00 H [address]1.13.[address] [facility] 4.2.7.2.686 Emanuel as [phone] [address] 2021-10-23 2021-10-23 Telephone [facility] 1.2.914.560 [id number] Univers 00:00:00 00:00:00 Corry GREGORIO 350.1.13.10 ity of [place] [phone] De dical NAL 188 [facility] 2021-10-22 2021-10-22 Outpatient [facility] [id number] Univers 14:45:00 14:45:00 ISAC ity [facility] 2021-10-22 2021-10-22 Outpatient Brock BARR [facility] [id number] Univers 14:45:00 14:45:00 ISAC ity [facility] 2021-10-22 2021-10-22 Outpatient Brock BARR [facility] [id number] Univers 14:45:00 14:45:00 ISAC ity [facility] 2021-10-22 2021-10-22 Outpatient Brock BARR [facility] [id number] Univers 14:45:00 14:45:00 ISAC itjay [facility] 2021-10-19 2021-10-19 Telephone Nisa [facility] 1.2.840.114 [id number] Univers 00:00:00 00:00:00 Wondiful A HEALTH 350.1.13.10 ity of [place] 4.2.7.2.686 Emanuel as JOLLY?BLEA [phone] De samirroshan ARLENEKISHORE 044 [facility] 2021-10-13 2021-10-13 Outpatient R JAYMIE [facility] [id number] Univers 10:30:00 10:41:12 CORRY jay [facility] 2021-10-13 2021-10-13 Office [facility] 1.2.840.114 [id number] Univers 10:30:00 10:41:12 Visit [facility] 350.1.13.10 it[place] of [place] [phone] De gabi BARNEY 204 [facility] 2021-10-13 2021-10-13 Outpatient R JAYMIE [facility] [id number] Univers 10:30:00 10:41:12 CORRY [facility] 2021-10-06 2021-10-06 Patient Doctor [facility] 1.2.840.114 [id number] Univers 00:00:00 00:00:00 Secure Msg Unassigned, HEALTH 350.1.13.10 ity of [place] 4.2.7.2.686 Emanuel as JOLLY?BLEA [phone] De gabi JACOBSKISHORE 198 [facility] OFFICE [facility] 2021-09-29 2021-09-29 Outpatient R FLORENCE [facility] [id number] Univers 16:14:01 23:59:00 CAPRICE flores [facility] 2021-09-29 2021-09-29 Outpatient R FLORENCE [facility] [id number] Univers 16:14:01 23:59:00 CAPRICE phillipsjay [facility] 2021-09-29 2021-09-29 Hospital [facility] 1.2.840.114 [id number] Univers 16:14:01 23:59:00 Encounter Caprice Fleming HEALTH 350.1.13.10 ity [facility] 4.2.7.2.686 Emanuel as JOLLY?BLEA [phone] Me gabi CHAIREZ 809 [facility] OFFICE [facility] 2021-09-29 2021-09-29 Outpatient Brock HENRIQUEZ [facility] [id number] Univers 16:14:01 23:59:00 [facility] 2021-09-29 2021-09-29 Office [facility] 1.2.840.114 [id number] Univers 16:00:00 16:58:02 Visit Isac [facility] 350.1.13.10 it y of [place] 4.2.7.2.686 Emanuel as JOLLY?BLEA [phone] De gabi CHAIREZ 198 [facility] OFFICE [facility] 2021-09-29 2021-09-29 Outpatient Brock BARR [facility] [id number] Univers 16:00:00 16:58:02 [facility] 2021-09-29 2021-09-29 Outpatient Brock BARR [facility] [id number] Univers 16:00:00 16:58:02 [facility] 2021-09-29 2021-09-29 Outpatient Brock BARR [facility] [id number] Univers 16:00:00 16:00:00 [facility] 2021-09-24 2021-09-24 Outpatient [facility] [id number] Univers 14:00:00 14:00:00 [facility] 2021-09-19 2021-09-19 Nurse Caprice Ozuna 1.2.840.114 [id number] Univers 00:00:00 00:00:00 Triage GRAYSON 350.1.13.[address] [facility] 4.2.7.2.686 Emanuel as [phone] [address] 2021-09-09 2021-09-09 Prep For Jaymie [facility] 1.2.840.114 [id number] Univers 00:00:00 00:00:00 Surgery Corry A [place] 350.1.13.10 ity of [place] 4.[place].2.[place] [phone] De dical NAL 204 [facility] 2021-09-08 2021-09-08 Office [facility] 1.2.805.823 [id number] Univers 14:30:00 16:16:36 Visit Cecile GREGORIO 350.1.13.10 i jonas justin [facility] 4.2.7.[place] [phone] De dical NAL 188 [facility] 2021-09-08 2021-09-08 Outpatient [facility] [id number] Univers 14:30:00 16:16:36 CECILE flores [facility] 2021-09-08 2021-09-08 Outpatient R LAKESHIA [facility] [id number] Univers 14:30:00 16:16:36 CECILE flores [facility] 2021-09-08 2021-09-08 Outpatient R [facility] [id number] Univers 14:30:00 14:30:00 CECILE flores [facility] 2021-09-08 2021-09-08 Orders Doctor OLGUIN 1.2.840.114 [id number] Univers 00:00:00 00:00:00 Only Unassigned, GRAYSON 350.1.13.10 ity of [place] [facility] 4.2.7.2.686 Emanuel as [phone] [address] 2021-09-02 2021-09-02 Outpatient Brock [facility] [id number] Univers 14:00:00 14:00:00 CAPRICE flores [facility] 2021-08-31 2021-08-31 Orders Doctor OLGUIN 1.2.840.114 [id number] Univers 00:00:00 00:00:00 Only Unassigned, GRAYSON 350.1.13.10 ity of [place] [facility] 4.2.7.2.686 Emanuel as [id number] [address] 2021-08-26 2021-08-26 Outpatient Brock [facility] [id number] Univers 10:45:00 11:58:51 WONDIFUL ity o f [facility] 2021-08-26 2021-08-26 Outpatient Brock [facility] [id number] Univers 10:45:00 11:58:51 WONDIFUL ity o f [facility] 2021-08-26 2021-08-26 Outpatient R NISA [facility] [id number] Univers 10:45:00 11:58:51 WONDIFUL ity o f [facility] 2021-08-26 2021-08-26 Outpatient R NISA [facility] [id number] Univers 10:45:00 11:58:51 WONDIFUL ity o f [facility] 2021-08-26 2021-08-26 Office [facility] 1.2.840.114 [id number] Univers 10:34:47 11:58:51 Visit Wondiful A HEALTH 350.1.13.10 ity of [place] 4.2.7.2.686 Emanuel as JOLLY?BLEA [phone] [address] MEDICAL OFF[address] [facility] 2021-08-17 2021-08-17 Case [facility] 1.2.840.114 [id number] Univers 00:00:00 00:00:00 Management Wondiful A HEALTH 350.1.13.10 ity of [place] 4.2.7.2.686 Emanuel as JOLLY?BLEA [phone] [address] MED[address] OFF[address] [facility] 2021-08-13 2021-08-13 Outpatient R NISA [facility] [id number] Univers 07:58:20 23:59:00 WONDIFUL ity o f [facility] 2021-08-13 2021-08-13 Hospital [facility] 1.2.606.820 [id number] Univers 07:58:20 23:59:00 Encounter Wondiful A [place] 350.1.13.10 ity of [place] 4.2.7.2.686 [place] [facility] [phone] [address] 2021-08-13 2021-08-13 Outpatient R NISA [facility] [id number] Univers 07:58:20 23:59:00 WONDIFUL ity o f [facility] 2021-08-13 2021-08-13 Senior Accountant Analyst Zachariah, Adc Lab Main [facility] 1.2.8 40.114 [id number] Univers 07:57:57 08:12:57 Visit Jeny Paulatanja Bryan [place] 350.1.13. 10 ity of [place]2.[place].2.[place] [phone] De gabi [facility] [address] BUILDING 2021-08-13 2021-08-13 Outpatient R NISA [facility] [id number] Univers 00:00:00 00:00:00 WONDIFUL ity o f [facility] 2021-08-13 2021-08-13 Patient Nisa [facility] 1.2.840.114 [id number] Univers 00:00:00 00:00:00 Secure Msg Wondiful A HEALTH 350.1.13.10 [facility] 4.2.7.2.686 Emanuel as JOLLY?BLEA [phone] [address] MEDICAL OFFICE BUILDING 2021-08-04 2021-08-04 Outpatient R NISA [facility] [id number] Univers 15:30:00 15:42:52 WONDIFUL ity o [facility] 2021-08-04 2021-08-04 Outpatient R NISA [facility] [id number] Univers 15:30:00 15:42:52 WONDIFUL ity o f [facility] 2021-08-04 2021-08-04 Outpatient R NISA [facility] [id number] Univers 15:30:00 15:42:52 WONDIFUL ity o f [facility] 2021-08-04 2021-08-04 Outpatient R NISA [facility] [id number] Univers 15:30:00 15:42:52 WONDIFUL ity o [facility] 2021-08-04 2021-08-04 Outpatient R NISA [facility] [id number] Univers 15:30:00 15:42:52 WONDIFUL ity o f [facility] 2021-08-04 2021-08-04 Office [facility] 1.2.840.114 [id number] Univers 14:30:05 15:42:52 Visit Wondiful A HEALTH 350.1.13.10 ity [facility] 4.2.7.2.686 Emanuel as JOLLY?BLEA [phone] De samir[address] MEDICAL OFFICE BUILDING 2021-08-04 2021-08-04 Outpatient Brock PAULA [facility] [id number] Univers 15:30:00 15:30:00 WONDIFUL ity o [facility] 2021-08-03 2021-08-03 Pre Visit BON Edmondson 1.2.840.114 [id number] Univers 00:00:00 00:00:00 Outreach Jorge Fleming GRAYSON 350.1.13.[address] [facility] 4.2.7.2.686 Emanuel as [phone] [address] 2021-07-15 2021-07-15 Out[facility] [id number] Univers 14:20:00 14:20:00 SHORTY ity [facility] 2021-07-15 2021-07-15 Outpatient [facility] [id number] Univers 14:20:00 14:20:00 SHORTY ity o [facility] 2021-07-15 2021-07-15 Outpatient [facility] [id number] Univers 14:20:00 14:20:00 [facility] 2021-07-15 2021-07-15 Outpatient R [facility] [id number] Univers 14:20:00 14:20:00 [facility] 2021-07-15 2021-07-15 Patient Doctor BON 1.2.840.114 [id number] Univers 00:00:00 00:00:00 Secure Msg Unassigned, GRAYSON 350.1.13.10 ity [place] [facility] 4.2.7.2.686 Emanuel as [phone] [address] 2021-07-14 2021-07-14 Susan Paula [facility] 1.2.840.114 [id number] Univers 00:00:00 00:00:00 Wondiful A Health 350.1.13.10 ity of [place] 4.2.7.2.686 Emanuel [address] Professio [phone] [facility] nal [address] Office Building One 2021-07-10 2021-07-10 Outpatient Kautz_S DMG DMG [id number] Devoted 05:13:00 05:13:00 1015 Medica l Group 2021-07-02 2021-07-02 Reffranchesca Paula [facility] 1.2.840.114 [id number] Univers 00:00:00 00:00:00 Wondiful A Health 350.1.13.10 ity of [place] 4.2.7.2.686 Emanuel as Professio [phone] De dicwy nal [address] Office Building One 2021-06-15 2021-06-15 Orders Doctor BON 1.2.840.114 [id number] Univers 00:00:00 00:00:00 Only Unassigned, GRAYSON 350.1.13.10 ity [place] [facility] 4.2.7.2.686 Emanuel as [phone] [facility] [address] 2021-06-08 2021-06-08 Patient Grupo Garcia 1.2.840.114 [id number] Univers 00:00:00 00:00:00 Outreach Emily Chahal Chavarria 350.1.13.10 ity of [place] 4[place]2.7.2.686 [place] [phone] [place] 739386 [employer] 2021-06-08 2021-06-08 Refill Vik Oliveira [facility] 1.2.840.114 [id number] Univers 00:00:00 00:00:00 Health 350.1.13.10 it y of [place]2.7.2.686 [place] [phone] [address] Office Building 2021-05-25 2021-05-25 Emergency [facility] ERT [id number] Univers 18:22:00 20:23:00 LAUREEN ity [facility] 2021-05-25 2021-05-25 Emergency X DREVER, [facility] ERT [id number] Univers 18:22:00 20:23:[address] [facility] ity [facility] 2021-05-25 2021-05-25 Emergency X DREVER, [facility] ERT [id number] Univers 18:22:00 20:23:00 LAUREEN ity [facility] 2021-05-25 2021-05-25 Emergency X DREVER, [facility] ERT [id number] Univers 18:22:00 20:23:00 LAUREEN ity of [facility] 2021-05-25 2021-05-25 Emergency [facility], [facility] ERT [id number] Univers 18:22:00 20:23:00 LAUREEN ity [facility] 2021-05-25 2021-05-25 Emergency Drever, [facility] 1.2.369.298 [id number] Univers 18:22:00 20:23:00 Laureen Truong [place] 350.1.13.10 ity [facility] 4.2.7.2.686 [facility] [phone] [address] 2021-05-21 2021-05-21 Outpatient LAILA GOODWIN [facility] [id number] Univers 09:30:00 09:30:00 LAILA ORELLANA [facility] 2021-05-19 2021-05-19 Susan [facility] 1.2.840.114 [id number] Univers 00:00:00 00:00:00 Wonalleghany health A [facility] 350.1.13.10 [facility] 4.2.7.2.686 [facility] [phone] [address] Office [facility] One 2021-05-14 2021-05-14 Outpatient DAPHNEY DIAZ [facility] [id number] Univers 09:00:00 09:00:00 ity [facility] 2021-05-09 2021-05-09 Outpatient DMG DMG [id number] Devoted 11:00:00 11:00:00 0814 Medica l Group 2021-05-08 2021-05-08 Outpatient Brock HENRIQUEZ [facility] [id number] Univers 07:37:21 23:59:00 CAPRICE ity [facility] 2021-05-08 2021-05-08 Outpatient Brock HENRIQUEZ [facility] [id number] Univers 07:37:21 23:59:00 CAPRICE flores [facility] 2021-05-08 2021-05-08 Outpatient R HENRIQUEZ, [facility] [id number] Univers 07:37:21 23:59:00 CAPRICE flores [facility] 2021-05-08 2021-05-08 Outpatient R HENRIQUEZ [facility] [id number] Univers 07:37:21 23:59:00 CAPRICE flores [facility] 2021-05-08 2021-05-08 Outpatient R MOMO [facility] [id number] Univers 08:15:00 08:15:00 ISAC flores [facility] 2021-05-07 2021-05-07 Outpatient DMG DM [id number] Devoted 12:00:00 12:00:00 0812 Medica l Group 2021-04-27 2021-04-27 Reffranchesca [facility] 1.2.840.114 [id number] Univers 00:00:00 00:00:00 [facility] 350.1.13.10 it y of [place] 4.2.7.2.686 Emanuel as PROFESSIO [phone] De dical [place] [address] [address] OFFICE BUILDING ONE 2021-04-21 2021-04-21 Outpatient R NISA [facility] [id number] Univers 15:45:00 15:45:00 WONDIFUL ity o f [facility] 2021-04-07 2021-04-07 Outpatient Brock TELLO [facility] [id number] Univers 09:20:00 09:20:00 VINEET mark [facility] 2021-04-02 2021-04-02 Outpatient Brock BARR [facility] [id number] Univers 08:45:00 08:45:00 ISAC mark [facility] 2021-04-01 2021-04-01 Emergency X NINO, [facility] ERT [id number] Univers 13:00:00 15:36:00 DESTINY phillipsjay [facility] 2021-04-01 2021-04-01 Emergency X NINO, [facility] ERT [id number] Univers 13:00:00 15:36:00 DETSINY folres [facility] 2021-04-01 2021-04-01 Emergency X ONEILL, [facility] ERT [id number] Univers 13:00:00 15:36:00 DESTINY [facility] 2021-04-01 2021-04-01 Outpatient R [facility] [id number] Univers 08:45:00 08:45:00 ity [facility] 2021-03-28 2021-03-28 Outpatient R BELLA, [facility] [id number] Univers 09:40:00 09:40:00 CHELA alanjay o f [facility] 2021-03-27 2021-03-27 Outpatient R MARY JANE, [facility] [id number] Univers 09:30:00 09:30:00 AN [facility] 2021-03-27 2021-03-27 Patient [facility] 1.2.840.114 [id number] Univers 00:00:00 00:00:00 Secure Msg Wondiful A HEALTH 350.1.13.10 [facility] 4.2.7.2.686 Emanuel as PROFESSIO [phone] De dical NAL [address] [place] [address] ONE 2021-03-27 2021-03-27 Patient Fenton, [facility] 1.2.840.114 [id number] Univers 00:00:00 00:00:00 Secure Msg Wondiful A HEALTH 350.1.13.10 ity of [place] 4.2.7.2.686 Emanuel as PROFESSIO [phone] De dical NAL [address] [place] [address] ONE 2021-03-26 2021-03-26 Outpatient R [facility] [id number] Univers 15:15:00 15:15:00 ISAC [facility] 2021-03-25 2021-03-25 Outpatient R JAYMIE, [facility] [id number] Univers 08:30:00 08:30:00 CORRY [facility] 2021-03-25 2021-03-25 Patient Doctor [facility] 1.2.840.114 [id number] Univers 00:00:00 00:00:00 Secure Msg Unassigned, HEALTH 350.1.13.10 ity of [place] SURGICAL 4.2.7.2.686 Emanuel as SPECIALTI [phone] De dical ES 198 [facility] 2021-03-23 2021-03-23 Outpatient R STEFFANIE [facility] [id number] Univers 08:00:00 08:00:00 EMERY ity o f [facility] 2021-03-20 2021-03-20 Emergency X STEPHEN, K [facility] ERT [id number] Univers 19:09:00 19:47:[address] [facility] 2021-03-20 2021-03-20 Emergency X STEPHEN, K [facility] ERT [id number] Univers 19:09:00 19:47:[address] [facility] 2021-03-20 2021-03-20 Emergency X STEHPEN, K [facility] ERT [id number] Univers 19:09:00 19:47:00 ity [facility] 2021-03-18 2021-03-18 Outpatient R FLORENCE [facility] NUT [id number] Univers 00:00:00 00:00:00 [facility] 2021-03-16 2021-03-16 Patient Doctor [facility] 1.2.840.114 [id number] Univers 00:00:00 00:00:00 Secure Msg Unassigned, HEALTH 350.1.13.10 ity of [place] SURGICAL 4.2.7.2.686 Emanuel as SPECIALTI [phone] De dical ES 198 [facility] 2021-03-12 2021-03-12 Outpatient Brock BARR [facility] [id number] Univers 08:30:00 08:30:00 ISAC [facility] 2021-03-11 2021-03-11 Outpatient Brock BARR [facility] [id number] Univers 16:15:00 16:15:00 [facility] 2021-03-10 2021-03-10 Susan Castro [facility] 1.2.840.114 [id number] Univers 00:00:00 00:00:00 Daria HEALTH 350.1.13.10 it y of [place].2.686 [place] [phone] [place] [id number] OFFICE BUILDING 2021-03-05 2021-03-05 Patient Doctor [facility] 1.2.840.114 [id number] Univers 00:00:00 00:00:00 Secure Msg Unassigned, [facility] 350.1.13.10 ity of [place] SURGICAL 4.2.7.2.686 Emanuel as SPECIALTI [phone] De dical ES [address] [place] 2021-02-25 2021-02-25 Outpatient R MOMO [facility] [id number] Univers 14:30:00 14:30:00 ISAC [facility] 2021-02-25 2021-02-25 Telephone [facility] 1.2.103.803 [id number] 00:00:00 00:00:00 Sendil Kaley [place] 350.1.13.10 [place] 4.2.7.2.686 Professio [phone] nal 059 Building 2021-02-24 2021-02-24 Outpatient R NISA [facility] [id number] Univers 11:00:00 11:00:00 WONDIFUL ity o f [facility] 2021-02-19 2021-02-19 Outpatient R FLORENCE [facility] [id number] Univers 10:03:49 23:59:00 CAPRICE [facility] 2021-02-19 2021-02-19 Outpatient R FLORENCE [facility] [id number] Univers 00:00:00 [facility]00[facility] 2021-02-17 2021-02-17 Outpatient R [facility] [id number] Univers 17:40:00 17:40:00 ity [facility] 2021-02-17 2021-02-17 Outpatient R JONA [facility] [id number] Univers 17:40:00 17:17:33 [facility] 2021-[facility]-17 2021-02-17 Outpatient R JONA [facility] [id number] Univers 17:40:00 17:17:33 [facility] 2021-02-17 2021-02-17 Outpatient Brock TENORIO [facility] [id number] Univers 17:40:00 17:17:33 ROGE ity [facility] 2021-02-13 2021-02-13 Patient Doctor [facility] 1.2.840.114 [id number] Univers 00:00:00 00:00:00 Secure Msg Unassigned, HEALTH 350.1.13.10 ity of [place] SURGICAL 4.2.7.2.686 Emanuel as SPECIALTI [phone] De dical ES 198 [facility] 2021-02-10 2021-02-10 Outpatient R ATUL [facility] [id number] Univers 09:00:00 09:00:00 SENDIL [facility] 2021-02-09 2021-02-09 Outpatient R MOMO [facility] [id number] Univers 14:45:00 14:45:00 [facility] 2021-02-09 2021-02-09 Outpatient R MOMO [facility] [id number] Univers 14:45:00 14:45:00 [facility] 2021-02-04 2021-02-04 Outpatient R MARCELINA VALERA [facility] [id number] Univers 10:30:00 10:30:00 MARCELINA VALERA [facility] 2021-02-03 2021-02-03 Outpatient R NISA [facility] [id number] Univers 16:30:00 16:30:00 WONDIFUL ity o f [facility] 2021-02-02 2021-02-02 Patient Momo [facility] 1.2.840.114 [id number] Univers 00:00:00 00:00:00 Secure Msg Isac HEALTH 350.1.13.10 ity of SURGICAL 4.2.7.2.686 Emanuel as SPECIALTI [phone] De dical ES 198 [facility] 2021-01-27 2021-01-27 Outpatient R NAV ANTONIO [facility] [id number] Univers 15:00[facility]00 [facility] 2021-01-22 Patient Doctor [facility] 1.2.840.114 [id number] Univers 00:00:00 00:00:00 Secure Msg Unassigned, [facility] 350.1.13.10 ity of [place] NINI 4.2.7.2.686 Laura forrester STEPHANIE [phone] De dicroshan [facility] 2021-01-21 2021-01-21 Outpatient R ATUL, [facility] [facility] [id number] Univers 11:00:00 11:00:00 SENDIL ity [facility] 2021-01-20 2021-01-20 Outpatient R DAPHNEY SÁNCHEZ [facility] [id number] Univers 11:00:00 11:00:00 ity [facility] 2021-01-14 2021-01-14 Outpatient R RIK, [facility] [id number] Univers 10:45:00 10:45:00 [facility] 2021-01-08 Outpatient R MOMO, [facility] [id number] Univers 08:45:00 08:45:00 ISAC [facility] 2021-01-06 2021-01-06 Outpatient R AIMEE, [facility] [id number] Univers 11:00:00 11:00:00 SHORTY ity o f [facility] 2021-01-01 2021-01-01 Outpatient R NISA, [facility] [id number] Univers 15:00:00 15:00:00 WONDIFUL ity o f [facility] 2021-01-01 2021-01-01 Outpatient R NISA, [facility] [id number] Univers 15:00:00 15:00:00 WONDIFUL ity o f [facility] 2021-01-01 2021-01-01 Outpatient R NISA, [facility] [id number] Univers 15:00:00 15:00:00 WONDIFUL ity o f [facility] 2021-01-01 2021-01-01 Outpatient R NISA, [facility] [id number] Univers 15:00:00 15:00:00 WONDIFUL ity o f [facility] 2020-12-13 2020-12-13 Outpatient [facility] [id number] Univers 08:25:00 08:25:00 ity [facility] 2020-12-13 2020-12-13 Outpatient R BELGICA, [facility] [id number] Univers 08:25:00 08:25:00 TAMMY ity [facility] 2020-12-13 2020-12-13 Outpatient R BELIGCA, [facility] [id number] Univers 08:25:00 08:25:00 TAMMY ity [facility] 2020-12-13 2020-12-13 Outpatient R BELGICA, [facility] [id number] Univers 08:25:00 08:25:00 TAMMY ity [facility] 2020-12-02 2020-12-02 Outpatient R JAKE, [facility] [id number] Univers 09:00:00 09:00:00 [facility] 2020-12-02 2020-12-02 Outpatient R JAKE, [facility] [id number] Univers 09:00:00 09:00:00 [facility] 2020-12-02 2020-12-02 Outpatient R JAKE, [facility] [id number] Univers 09:00:00 09:00:00 [facility] 2020-12-02 2020-12-02 Outpatient R JAKE, [facility] [id number] Univers 09:00:00 09:00:00 [facility] 2020-11-22 2020-11-22 Outpatient R BELGICA, [facility] [id number] Univers 09:40:00 09:40:00 [facility] 2020-11-22 2020-11-22 Outpatient R BELGICA, [facility] [id number] Univers 09:40:00 09:40:00 TAMMY ity [facility] 2020-11-22 2020-11-22 Outpatient R BELGICA, [facility] [id number] Univers 09:40:00 09:40:00 [facility] 2020-11-21 2020-11-21 Outpatient R DONOVAN, [facility] [id number] Univers 14:00:00 14:00:00 [facility] 2020-11-20 2020-11-20 Outpatient R LAILA ORELLANA [facility] [id number] Univers 15:00:00 15:00:00 LAILA ORELLANA i [facility] 2020-11-19 2020-11-19 Patient Nisa [facility] [id number] Univers 00:00:00 00:00:00 Secure Msg Wondiful A HEALTH [id number] ity of [place] [id number] Emanuel as PROFESSIO [phone] [address] 2020-11-10 2020-11-10 Patient Nisa [facility] [id number] Univers 00:00:00 00:00:00 Secure Msg Wondiful [facility] HEALTH [id number] ity of [place] [id number] Emanuel as PROFESSIO [phone] [address] 2020-11-09 2020-11-09 Outpatient R ELISHA [facility] [id number] Univers 08:20:00 08:20:00 VINEET ity [facility] 2020-11-09 2020-11-09 Outpatient R ELISHA [facility] [id number] Univers 08:20:00 08:20:00 VINEET y [facility] 2020-11-09 2020-11-09 Outpatient R ELISHA [facility] [id number] Univers 08:20:00 08:20:00 VINEET ity [facility] 2020-11-07 2020-11-07 Outpatient R VIK OLIVEIRA [facility] [id number] Univers 11:30:00 11:30:00 ity [facility] 2020-11-06 2020-11-06 Outpatient R NISA [facility] [id number] Univers 08:15:00 08:15:00 WONDIFUL ity o f [facility] 2020-11-05 2020-11-05 Patient Vik Oliveira [facility] [id number] Univers 00:00:00 00:00:00 Secure Msg HEALTH [id number] [id number] [phone] [facility] [address] OFFICE BUILDING 2020-10-27 2020-10-27 Patient Nisa [facility] [id number] Univers 00:00:00 00:00:00 Secure Msg Wondiful A HEALTH [id number] ity of [place] [id number] Emanuel as PROFESSIO [phone] [address] OFFICE BUILDING ONE 2020-10-21 2020-10-21 Patient Nisa [facility] [id number] Univers 00:00:00 00:00:00 Secure Msg Wondiful [facility] HEALTH [id number] ity of [place] [id number] Emanuel as PROFESSIO [phone] [address] ONE 2020-10-16 2020-10-16 Outpatient R ELISHA [facility] [id number] Univers 18:00:00 18:00:00 VINEET [facility] 2020-10-07 2020-10-07 [facility] [id number] Univers 00:00:00 00:00:00 Secure Msg Wondiful A HEALTH [id number] ity of [place] [id number] Emanuel as PROFESSIO [phone] [address] [facility] ONE 2020-10-06 2020-10-06 [facility] [id number] Univers 00:00:00 00:00:00 Secure Msg Wondiful [facility] [id number] ity of [place] [id number] Emanuel as PROFESSIO [phone] [address] [facility] ONE 2020-10-02 2020-10-02 Outpatient R MOMO [facility] [id number] Univers 10:15:00 10:15:00 ISAC [facility] 2020-09-22 2020-09-22 Outpatient R STEFFANIE [facility] [id number] Univers 08:00:00 08:00:00 EMERY ity o f [facility] 2020-09-15 2020-09-15 Outpatient R NISA [facility] [id number] Univers 00:00:00 00:00:00 WONDIFUL ity o f [facility] 2020-09-15 2020-09-15 Outpatient R NISA [facility] [id number] Univers 00:00:00 00:00:00 WONDIFUL ity o f [facility] 2020-09-14 2020-09-14 Outpatient R JONA, [facility] [id number] Univers 08:40:00 08:40:00 ROGE [facility] 2020 2020 Outpatient R NISA, [facility] [id number] Univers 00:00:00 00:00:00 WONDIFUL ity o f [facility] 2020-09-10 2020-09-10 Outpatient R DONITA, [facility] [id number] Univers 08:00:00 08:00:00 SHANTI jay [facility] 2020-09-08 2020-09-08 Outpatient R SELF, [facility] [id number] Univers 08:00:00 08:00:00 EMERY ity o f [facility] 2020-09-04 2020-09-04 Outpatient R NISA [facility] [id number] Univers 16:00:00 16:00:00 WONDIFUL ity o f [facility] 2020-08-26 2020-08-26 [facility] [id number] Univers 00:00:00 00:00:00 Secure Ms Wondiful [facility] [id number] [facility] [id number] Emanuel as PROFESSIO [phone] De [place] [address] [address] OFFICE BUILDING ONE 2020-08-25 2020-08-25 Outpatient R NISA [facility] [id number] Univers 11:00:00 11:13:03 WONDIFUL ity o f [facility] 2020-08-25 2020-08-25 Outpatient R NISA [facility] [id number] Univers 10:30:00 10:30:00 WONDIFUL ity o f [facility] 2020-08-06 2020-08-06 Outpatient R PATRICIO [facility] [id number] Univers 10:20:00 10:20:00 BALJIT flores [facility] 2020-08-06 2020-08-06 Outpatient R PATRICIO [facility] [id number] Univers 09:00:00 09:00:00 BALJIT flores [facility] 2020-08-01 2020-08-01 Outpatient R MARY JANE [facility] [id number] Univers 10:00:00 10:00:00 ANPARMJIT flores [facility] 2020-07-18 2020-07-18 Outpatient R LAILA ORELLANA [facility] [id number] Univers 11:00:00 11:00:00 LAILA ORELLANA i [facility] 2020-07-17 2020-07-17 Outpatient R VIK OLIVEIRA [facility] [id number] Univers 12:00:00 [facility] 2020-07-14 Outpatient R NISA [facility] [id number] Univers 10:45:00 10:45:00 WONDIFUL ity o f [facility] 2020-07-07 2020-07-07 Outpatient R MAKSIM [facility] [id number] Univers 08:30:00 08:30:00 AUBRIE jay [facility] 2020-06-27 2020-06-27 Outpatient R NISA [facility] [id number] Univers 15:15:00 15:15:00 WONDIFUL ity o f [facility] 2020-06-12 2020-06-12 Outpatient R MAKSIM [facility] [id number] Univers 15:45:00 15:45:00 AUBRIE [facility] 2020-06-05 2020-06-05 Outpatient R MOMO [facility] [id number] Univers 10:30:00 10:30:00 ISAC [facility] 2020-06-03 2020-06-03 Outpatient R ATUL [facility] [id number] Univers 09:00:00 09:00:00 SENDHANNA [facility] 2020-05-16 2020-05-16 Outpatient R VIK OLIVEIRA [facility] [id number] Univers 16:30:00 16:30:[address] [facility] 2020-05-09 2020-05-09 Outpatient R [facility] [id number] Univers 10:20:00 10:20:[address] [facility] 2020-04-21 2020-04-21 Outpatient R ARGENIS, [facility] [id number] Univers 11:40:00 11:40:00 DORITA ity [facility] 2020-04-18 2020-04-18 Outpatient R POLLARD, [facility] [id number] Univers 09:30:00 09:30:00 SENDIL ity [facility] 2020-04-15 2020-04-15 Outpatient R [facility] [id number] Univers 10:20:00 10:20:00 ity [facility] 2020-04-04 2020-04-04 Outpatient R [facility] [id number] Univers 10:00:00 10:00:00 ity [facility] 2020-04-01 2020-04-01 Outpatient R [facility] [id number] Univers 08:00:00 08:00:00 ity [facility] 2020-03-20 2020-03-20 Outpatient R DOSS, [facility] [id number] Univers 10:00:00 10:00:00 FABRICIO [facility] 2020-03-10 2020-03-10 Outpatient R MIKAYLA, [facility] [id number] Univers 08:45:00 08:45:00 CL [facility] 2020-03-03 2020-03-03 Outpatient R MAKSIM, [facility] [id number] Univers 08:00:00 08:00:00 AUBRIE [facility] 2020-01-22 2020-01-22 Outpatient [facility] [id number] Univers 15:45:00 15:45:00 ISAC y [facility] 2020-01-22 2020-01-22 Outpatient R MOMOST[facility] [id number] Univers 10:45:00 10:45:00 ISAC [facility] 2020-01-18 2020-01-18 Outpatient R DAPHNEY SÁNCHEZ [facility] [id number] Univers 11:30:00 11:30:00 ity [facility] 2020-01-11 2020-01-11 Outpatient R LAILA ORELLANA [facility] [id number] Univers 11:00:00 11:00:00 LAILA ORELLANA i ty [facility] 2020-01-10 2020-01-10 [facility] [id number] Univers 10:00:00 10:00:00 WONDIFUL ity o f [facility] 2020-01-04 2020-01-04 Outpatient R OLIVEIRAVIK [facility] [id number] Univers 11:30:00 11:30:00 ity [facility] 2020-01-01 2020-01-01 Outpatient R [facility] [id number] Univers 08:00:00 [facility]-12-21 [facility] [id number] Univers 09:30:00 09:30:00 WONDIFUL ity o f [facility] 2019-12-06 2019-12-06 Outpatient R DOSS, [facility] [id number] Univers 11:00:00 11:00:00 FABRICIO [facility] 2019-11-30 2019-11-30 Outpatient R MOMO [facility] [id number] Univers 10:30:00 10:30:[facility] 2019-11-29 Outpatient Brock BARR [facility] [id number] Univers 08:15:00 08:15:00 [facility] 2019-11-23 2019-11-23 Outpatient R [facility] [id number] Univers 08:00:00 08:00:00 [facility] Results Test Description Test Time Test Comments Results Result Comments Source BASIC METABOLIC PANEL 2023-05-13 05:47:00 Test Item Value Reference Range Interpretation Comme nts SODIUM (test code = NA) 138 mmol/L 136-145 N POTASSIUM (test code = K) 4.0 mmol/L 3.5-5.1 N CHLORIDE (test code = CL) 106.0 mmol/L 98-107 N CARBON DIOXIDE (test code = 21.0 mmol/L 21-32 N CO2) ANION GAP (test code = GAP) 15.0 10-20 N GLUCOSE (test code = GLU) 77 mg/dL 74-106 N BLOOD UREA NITROGEN (test 7 mg/dL 7-18 N code = BUN) GLOMERULAR FILTRATION RATE > 60 mL/min See_Comment T he Glomerular Filtration Rate (test code = GFR) is a calcu lated parameterbased on serum Creati nine, patient age and sex. GF R valuesless than 60 mL/min/ 1.73 square meters are yolanda cative ofChronic Kidney Disease. Values less than 15 mL/min/ 1.73square meters indicate Kidney failure. The calculation forGFR is based on the CKD-EPI (2020) calculation. Th is formulais race indifferen t and is the recommended for sudhir for GFRby the National [facility] for Adults.The GFR will not calculate if th e sex is unknown or if thepatien t's age is <18 years. [Automat ed message] The system which ge nerated this result transmit tomy reference range: >=60. Th e reference range was not u sed to interpret this result as normal/abnormal. CREATININE (test code = 1.10 mg/dL 0.55-1.02 H No te change in reference CREAT) range due to ch stefanie in reagent. BUN/CREATININE RATIO (test 6.1 10-20 L code = BUN/CREA) CALCIUM (test code = CA) 8.5 mg/dL 8.5-10.1 N [id number] 05:47:00 Test Item Value Reference Range Interpretation Comments PHOSPHORUS (test code = PHOS) 3.9 mg/dL 2.5-4.9 N [id number] 05:47:00 Test Item Value Reference Range Interpretation Comments MAGNESIUM (test code = MAG) 1.2 mg/dL 1.8-2.4 L VITAMIN [id number] 05:37:00 Test Item Value Reference Range Interpretation Comments VITAMIN B12 (test code = VITB12) 753 pg/mL 193-986 N CBC W/AUTO [id number] 05:17:00 Test Item Value Reference Range Interpretation Comments WHITE BLOOD CELL (test code = 3.8 K/mm3 4.5-12.5 L WBC) RED BLOOD CELL (test code = 2.59 mill/mm3 3.7-5.2 L RBC) HEMOGLOBIN (test code = HGB) 7.8 gram/dL 11.5-15.5 L HEMATOCRIT (test code = HCT) 23.2 % 36.0-46.0 L MEAN CELL VOLUME (test code = 89.6 fL 80-98 N MCV) MEAN CELL HGB (test code = MCH) 30.1 picogram 27.0-33.0 N MEAN CELL HGB CONCETRATION 33.6 gram/dL 33.0-36.0 N (test code = MCHC) RED CELL DISTRIBUTION WIDTH 14.6 % 11.6-16.2 N (test code = RDW) RED CELL DISTRIBUTION WIDTH SD 47.8 fL 37.0-51.0 N (test code = RDW-SD) PLATELET COUNT (test code = 276 K/mm3 150-450 N PLT) MEAN PLATELET VOLUME (test code 10.2 fL 6.7-11.0 N = MPV) NEUTROPHIL % (test code = NT%) 54.9 % 39.0-69.0 N IMMATURE GRANULOCYTE % (test 0.3 % 0.0-5.0 N code = IG%) LYMPHOCYTE % (test code = LY%) 29.5 % 25.0-55.0 N MONOCYTE % (test code = MO%) 8.4 % 0.0-10.0 N EOSINOPHIL % (test code = EO%) 5.8 % 0.0-5.0 H BASOPHIL % (test code = BA%) 1.1 % 0.0-1.0 H NUCLEATED RBC % (test code = 0.0 % 0-0 N NRBC%) NEUTROPHIL # (test code = NT#) 2.09 K/mm3 1.8-7.7 N IMMATURE GRANULOCYTE # (test 0.01 x10 3/uL 0-0.03 N code = IG#) LYMPHOCYTE # (test code = LY#) 1.12 K/mm3 1.0-5.0 N MONOCYTE # (test code = MO#) 0.32 K/mm3 0-0.8 N EOSINOPHIL # (test code = EO#) 0.22 K/mm3 0.0-0.5 N BASOPHIL # (test code = BA#) 0.04 K/mm3 0.0-0.2 N NUCLEATED RBC # (test code = 0.00 K/mm3 0.0-0.1 N NRBC#) MANUAL DIFF REQUIRED (test code NO = MDIFF) [id number] 23:35:00 Test Item Value Reference Range Interpretation Comments GLUBED (test code = 80 mg/dL 74-106 N Performe d by certified GLUBED) file conversion operator at [facility] [id number] 03:41:00 Test Item Value Reference Range Interpretation Comments GLUBED (test code = 78 mg/dL 74-106 N Performe d by certified GLUBED) file conversion operator at [facility] [id number] 14:59:00 Test Item Value Reference Range Interpretation Comments GLUBED (test code = 79 mg/dL 74-106 N Performe d by certified GLUBED) file conversion operator at [facility] [id number] 20:10:00 Test Item Value Reference Range Interpretation Comments GLUBED (test code = 95 mg/dL 74-106 N Performe d by certified GLUBED) [facility]~ [id number] 17:21:00 Test Item Value Reference Range Interpretation Comments GLUBED (test code = 102 mg/dL 74-106 N Performe d by certified GLUBED) file conversion operator at [facility] [id number] 11:50:00 Test Item Value Reference Range Interpretation Comments GLUBED (test code = 96 mg/dL 74-106 N Performe d by certified GLUBED) file conversion operator at [facility] [id number] 08:21:00 Test Item Value Reference Range Interpretation Comments GLUBED (test code = 107 mg/dL 74-106 H Performe d by certified GLUBED) file conversion operator at [facility] BASIC METABOLIC [id number] 04:14:00 Test Item Value Reference Range Interpretation Comments SODIUM (test code = 136 mmol/L 136-145 N NA) POTASSIUM (test 4.1 mmol/L 3.5-5.1 N code = K) CHLORIDE (test code 106.0 mmol/L 98-107 N = CL) CARBON DIOXIDE 22.0 mmol/L 21-32 N (test code = CO2) ANION GAP (test 12.1 10-20 N code = GAP) GLUCOSE (test code 80 mg/dL 74-106 N = GLU) BLOOD UREA NITROGEN 7 mg/dL 7-18 N (test code = BUN) GLOMERULAR 55 mL/min See_Comment The Glomerular FILTRATION RATE Filtration R ate [...] recommended for sudhir for [facility]by the N [facility] on for Adults.The GFR will not calculate i f the sex is unknown or if thepatient's ag e is <18 years. [Aut omated message] The sy stem which generated this result transmit tomy reference range : >=60. The reference r stefanie was not used to interpret this result as normal/abnor mal. CREATININE (test 1.20 mg/dL 0.55-1.02 H Note herrera ge in code = CREAT) reference rang e due to change in reage nt. BUN/CREATININE 5.9 10-20 L RATIO (test code = BUN/CREA) CALCIUM (test code 8.2 mg/dL 8.5-10.1 L = CA) CBC W/AUTO [id number] 03:55:00 Test Item Value Reference Range Interpretation Comments WHITE BLOOD CELL (test code = 3.6 K/mm3 4.5-12.5 L WBC) RED BLOOD CELL (test code = 2.67 mill/mm3 3.7-5.2 L RBC) HEMOGLOBIN (test code = HGB) 7.8 gram/dL 11.5-15.5 L HEMATOCRIT (test code = HCT) 24.0 % 36.0-46.0 L MEAN CELL VOLUME (test code = 89.9 fL 80-98 N MCV) MEAN CELL HGB (test code = MCH) 29.2 picogram 27.0-33.0 N MEAN CELL HGB CONCETRATION 32.5 gram/dL 33.0-36.0 L (test code = MCHC) RED CELL DISTRIBUTION WIDTH 14.6 % 11.6-16.2 N (test code = RDW) RED CELL DISTRIBUTION WIDTH SD 47.6 fL 37.0-51.0 N (test code = RDW-SD) PLATELET COUNT (test code = 241 K/mm3 150-450 N PLT) MEAN PLATELET VOLUME (test code 10.4 fL 6.7-11.0 N = MPV) NEUTROPHIL % (test code = NT%) 58.6 % 39.0-69.0 N IMMATURE GRANULOCYTE % (test 0.3 % 0.0-5.0 N code = IG%) LYMPHOCYTE % (test code = LY%) 25.3 % 25.0-55.0 N MONOCYTE % (test code = MO%) 8.9 % 0.0-10.0 N EOSINOPHIL % (test code = EO%) 5.8 % 0.0-5.0 H BASOPHIL % (test code = BA%) 1.1 % 0.0-1.0 H NUCLEATED RBC % (test code = 0.0 % 0-0 N NRBC%) NEUTROPHIL # (test code = NT#) 2.11 K/mm3 1.8-7.7 N IMMATURE GRANULOCYTE # (test 0.01 x10 3/uL 0-0.03 N code = IG#) LYMPHOCYTE # (test code = LY#) 0.91 K/mm3 1.0-5.0 L MONOCYTE # (test code = MO#) 0.32 K/mm3 0-0.8 N EOSINOPHIL # (test code = EO#) 0.21 K/mm3 0.0-0.5 N BASOPHIL # (test code = BA#) 0.04 K/mm3 0.0-0.2 N NUCLEATED RBC # (test code = 0.00 K/mm3 0.0-0.1 N NRBC#) [id number] 20:12:00 Test Item Value Reference Range Interpretation Comments GLUBED (test code = 91 mg/dL 74-106 N Performe d by certified GLUBED) [facility]~ [id number] 16:48:00 Test Item Value Reference Range Interpretation Comments GLUBED (test code = 73 mg/dL 74-106 L Performe d by certified GLUBED) file conversion operator at [facility] [id number] 12:08:00 Test Item Value Reference Range Interpretation Comments GLUBED (test code = 91 mg/dL 74-106 N Performe d by certified GLUBED) file conversion operator at [facility] BASIC METABOLIC [id number] 10:07:00 Test Item Value Reference Range Interpretation Comments SODIUM (test code = 138 mmol/L 136-145 N NA) POTASSIUM (test 4.0 mmol/L 3.5-5.1 N code = K) CHLORIDE (test code 108.0 mmol/L 98-107 H = CL) CARBON DIOXIDE 21.0 mmol/L 21-32 N (test code = CO2) ANION GAP (test 13.0 10-20 N code = GAP) GLUCOSE (test code 97 mg/dL 74-106 N = GLU) BLOOD UREA NITROGEN 7 mg/dL 7-18 N (test code = BUN) GLOMERULAR > 60 mL/min See_Comment The Glomerular FILTRATION RATE Filtration R ate [...] recommended for sudhir for GFRby the N [facility] Kidney Foundati on for Adults.The GFR will not calculate i f the sex is unknown or if thepatient's ag e is <18 years. [Aut omated message] The sy stem which generated this result transmit tomy reference range : >=60. The reference r stefanie was not used to interpret this result as normal/abnor mal. CREATININE (test 1.00 mg/dL 0.55-1.02 N Note herrera ge in code = CREAT) reference rang e due to change in reage nt. BUN/CREATININE 7.0 10-20 L RATIO (test code = BUN/CREA) CALCIUM (test code 8.6 mg/dL 8.5-10.1 N = CA) TSH REFLEX TO [id number] 10:07:00 Test Item Value Reference Range Interpretation Comments TSH REFLEX TO FT4 (test code = 4.3 0.4-5.5 N TSHREFLEX) CBC W/AUTO [id number] 09:28:00 Test Item Value Reference Range Interpretation Comments WHITE BLOOD CELL (test code = 3.5 K/mm3 4.5-12.5 L WBC) RED BLOOD CELL (test code = 2.87 mill/mm3 3.7-5.2 L RBC) HEMOGLOBIN (test code = HGB) 8.5 gram/dL 11.5-15.5 L HEMATOCRIT (test code = HCT) 26.9 % 36.0-46.0 L MEAN CELL VOLUME (test code = 93.7 fL 80-98 N MCV) MEAN CELL HGB (test code = MCH) 29.6 picogram 27.0-33.0 N MEAN CELL HGB CONCETRATION 31.6 gram/dL 33.0-36.0 L (test code = MCHC) RED CELL DISTRIBUTION WIDTH 14.6 % 11.6-16.2 N (test code = RDW) RED CELL DISTRIBUTION WIDTH SD 50.0 fL 37.0-51.0 N (test code = RDW-SD) PLATELET COUNT (test code = 241 K/mm3 150-450 N PLT) MEAN PLATELET VOLUME (test code 10.4 fL 6.7-11.0 N = MPV) NEUTROPHIL % (test code = NT%) 63.1 % 39.0-69.0 N IMMATURE GRANULOCYTE % (test 0.3 % 0.0-5.0 N code = IG%) LYMPHOCYTE % (test code = LY%) 25.7 % 25.0-55.0 N MONOCYTE % (test code = MO%) 6.6 % 0.0-10.0 N EOSINOPHIL % (test code = EO%) 3.4 % 0.0-5.0 N BASOPHIL % (test code = BA%) 0.9 % 0.0-1.0 N NUCLEATED RBC % (test code = 0.0 % 0-0 N NRBC%) NEUTROPHIL # (test code = NT#) 2.21 K/mm3 1.8-7.7 N IMMATURE GRANULOCYTE # (test 0.01 x10 3/uL 0-0.03 N code = IG#) LYMPHOCYTE # (test code = LY#) 0.90 K/mm3 1.0-5.0 L MONOCYTE # (test code = MO#) 0.23 K/mm3 0-0.8 N EOSINOPHIL # (test code = EO#) 0.12 K/mm3 0.0-0.5 N BASOPHIL # (test code = BA#) 0.03 K/mm3 0.0-0.2 N NUCLEATED RBC # (test code = 0.00 K/mm3 0.0-0.1 N NRBC#) [id number] 08:07:00 Test Item Value Reference Range Interpretation Comments GLUBED (test code = 71 mg/dL 74-106 L Performe d by certified GLUBED) file conversion operator at [facility] [id number] 21:56:00 Test Item Value Reference Range Interpretation Comments GLUBED (test code = 120 mg/dL 74-106 H Performe d by certified GLUBED) file conversion operator at [facility] [id number] 18:04:00 Test Item Value Reference Range Interpretation Comments GLUBED (test code = 85 mg/dL 74-106 N Performe d by certified GLUBED) file conversion operator at [facility] [id number] 12:16:00 Test Item Value Reference Range Interpretation Comments GLUBED (test code = 87 mg/dL 74-106 N Performe d by certified GLUBED) file conversion operator at [facility] [id number] 06:28:00 Test Item Value Reference Range Interpretation Comments GLUBED (test code = 81 mg/dL 74-106 N Performe d by certified GLUBED) file conversion operator at [facility] - XR CHEST 1 [id number] 01:23:00 [facility]Name: LIZBET RAHMAN : 1975 Sex: F FAX: Faith Fox MD [phone] [place]: B St: REG Name: LIZBET RAHMAN [facility] : 1975 Age/S:47/F [address] [facility] Unit #: [id number] Loc: [place] [address] Phys: Faith Fox MD Acct: [id number] Dis Date: Status: REG ER PHONE #: [phone] Exam Date: 05/08/2023 0119 FAX #: [phone] Reason: CODE SEPSIS EXAMS: CPT CODE: [id number] XR CHEST 1 V [id number] EXAM: - XR CHEST 1 V COMPARISON: 03/11/23 LOCATION: 7 HISTORY: 47 years-old Female with CODE SEPSIS TECHNIQUE: Single AP view of the chest. FINDINGS: The cardiomediastinal silhouette is within normal limits. The lungs are well aerated. No large pneumothorax or pleural effusion. Osseous structures and soft tissues demonstrate no acute findings. The visualized upper abdomen is unremarkable. IMPRESSION: No acute cardiopulmonary abnormality. at 0123 Reported and signed by: Cl Glass M.D. CC: Faith Fox MD Technologist: MERCED FROST RT(R) Trnscrd Date/Time/By: 05/08/2023 (0123) : By: [email or web address] Orig Print D/T: S: 05/08/2023 (0126) PAGE 1 Signed Report URINALYSIS [id number] 00:55:00 Test Item Value Reference Range Interpretation Comments UA COLOR (test code = YELLOW YELLOW COLU) UA APPEARANCE (test TURBID CLEAR A IS THE S AMPLE code = APPU) FROM ER OR L&D? Y IF THE ANSWER I S NO,PLEASE DOCUMENT TWO RN SIGNATURES HERE - by [id number] 05/08/23 0050 UA GLUCOSE DIPSTICK NEGATIVE mg/dL NEGATIVE (test code = DGLUU) UA BILIRUBIN DIPSTICK NEGATIVE mg/dL NEGATIVE (test code = BILU) UA KETONE DIPSTICK NEGATIVE mg/dL NEGATIVE (test code = KETU) UA SPECIFIC GRAVITY 1.018 1.001-1.035 (test code = SGU) UA BLOOD DIPSTICK 0.06 mg/dL (1+) NEGATIVE A (test code = JOSE CARLOS) mg/dL UA PH DIPSTICK (test 6.0 5.0-8.0 code = DIMITRI) UA PROTEIN DIPSTICK 50 (1+) mg/dL NEGATIVE A (test code = PROU) UA UROBILINIOGEN Normal mg/dL NEGATIVE DIPSTICK (test code = URO) UA NITRITE DIPSTICK NEGATIVE NEGATIVE (test code = MACIEJ) UA LEUKOCYTE ESTERASE 500 Crista/uL (3+) NEGATIVE A W REFLEX (test code = Crista/uL LEUUR) UA WBC (test code = >200 per HPF 0-5 A WBCU) UA RBC (test code = 51-100 #/HPF 0-5 RBCU) UA WBC CLUMPS (test >10 /HPF NONE A code = WBCUCL) UA EPITHELIAL CELLS None seen per FEW (test code = EPIU) HPF UA BACTERIA (test MANY #/HPF NONE A code = BACU) UA MUCUS (test code = MANY #/LPF FEW A MUCU) UA YEAST (test code = MANY #/HPF NONE A YEASTU) Urine Source? Clean CatchDRUGS OF ABUSE SCREEN [id number] 00:55:00 Test Item Value Reference Range Interpretation Comments URN COCAINE (test code = NEGATIVE See_Comment [A utomated message] COCAURN) The system Step-In generated this result transmitted ref erence range: <300 ng/ mL. The reference r stefanie was not used to interpret this result as normal/abnor mal. URN CANNABINOIDS (test NEGATIVE See_Comment [Aut omated message] code = CANNABURN) The system which generated this result transmitted ref erence range: <50 ng/m L. The reference range was not used to int erpret this result as normal/abnormal . URN AMPHETAMINE (test NEGATIVE See_Comment [Auto mated message] code = AMPHETURN) The system which generated this result transmitted ref erence range: <1000 ng /mL. The reference r stefanie was not used to interpret this result as normal/abnor mal. URN BARBITURATE (test NEGATIVE See_Comment [Auto mated message] code = BARBITURN) The system which generated this result transmitted ref erence range: <200 ng/ mL. The reference r stefanie was not used to interpret this result as normal/abnor mal. URN BENZODIAZEPINE (test NEGATIVE See_Comment [A utomated message] code = BENZOURN) The system which generated this result transmitted ref erence range: <200 ng/ mL. The reference r stefanie was not used to interpret this result as normal/abnor mal. URN OPIATES (test code = NEGATIVE See_Comment [A utomated message] OPIATURN) The system Step-In generated this result transmitted ref erence range: <300 ng/ mL. The reference r stefanie was not used to interpret this result as normal/abnor mal. URN PHENCYCLIDINE (PCP) NEGATIVE See_Comment [Au tomated message] (test code = PHENCURN) The s ystem which generated this result transmitted ref erence range: <25 ng/m L. The reference range was not used to int erpret this result as normal/abnormal . URN METHADONE (test code NEGATIVE See_Comment [A utomated message] = METHAURN) The system Step-In generated this result transmitted ref erence range: <300 ng/ mL. The reference r stefanie was not used to interpret this result as normal/abnor mal. Urine Source? Clean CatchLACTIC [id number] 00:52:00 Test Item Value Reference Range Interpretation Comments LACTIC ACID (test code = LACT) 0.6 mmol/L 0.4-1.9 N [id number] 00:47:00 Test Item Value Reference Range Interpretation Comments TROPONIN-HS 4.500 pg/mL 0-34 N 99th Percentile Upper (test code = Reference Limit TROPI) (URL):Females: 34 pg/mLMales: 54 pg/mL In order to distin guish acute elevations of h igh sensitivitytrop onin from other clinical conditions, the FourthUnive rsal Definition of M yocardial Infarction stre ssesclinical assessment and the demonstration o f a rise and/orfall in s erial troponin result s above the URL. These resu lts were obtained using Siemens AteEcommo IM TnI Hreagent. Results from di fferent methodologies s hould not becompared to o ne another as quantitative re sults and URLs mayvary by method. NOTE: A Positiv e Bias may occur for patie nts taking Biotin Suppleme nts.NOTE: Current test me thodology (pg/mL) units d iffer from prior test meth odology (ng/mL) by a fa ctor of 1000. BASIC METABOLIC [id number] 00:31:00 Test Item Value Reference Range Interpretation Comments SODIUM (test code = 141 mmol/L 136-145 N NA) POTASSIUM (test 4.1 mmol/L 3.5-5.1 N code = K) CHLORIDE (test code 109.0 mmol/L 98-107 H = CL) CARBON DIOXIDE 22.0 mmol/L 21-32 N (test code = CO2) ANION GAP (test 14.1 10-20 N code = GAP) GLUCOSE (test code 85 mg/dL 74-106 N = GLU) BLOOD UREA NITROGEN 10 mg/dL 7-18 N (test code = BUN) GLOMERULAR > 60 mL/min See_Comment The Glomerular FILTRATION RATE Filtration R ate [...] if thepatient's ag e is <18 years. [Aut omated message] The sy stem which generated this result transmit tomy reference range : >=60. The reference r stefanie was not used to interpret this result as normal/abnor mal. CREATININE (test 1.10 mg/dL 0.55-1.02 H Note herrera ge in code = CREAT) reference rang e due to change in reage nt. BUN/CREATININE 8.8 10-20 L RATIO (test code = BUN/CREA) CALCIUM (test code 8.7 mg/dL 8.5-10.1 N = CA) HEPATIC FUNCTION [id number] 00:31:00 Test Item Value Reference Range Interpretation Comments TOTAL PROTEIN (test 4.6 gram/dL 6.4-8.2 L code = PROT) ALBUMIN (test code = 2.4 g/dL 3.4-5.0 L ALB) GLOBULIN (test code = 2.2 gram/dL 2.7-4.2 L GLOB) ALBUMIN/GLOBULIN RATIO 1.1 0.75-1.50 N (test code = A/G) BILIRUBIN TOTAL (test 0.50 mg/dL 0.0-1.0 N code = BILT) BILIRUBIN DIRECT (test 0.30 mg/dL 0.0-0.20 H code = BILD) SGOT/AST (test code = 17 IUnit/L 15-37 N AST) SGPT/ALT (test code = 11 IUnit/L 12-78 L ALT) ALKALINE PHOSPHATASE 245 IUnit/L 45-117 H Note change in TOTAL (test code = reference range due ALKP) to change in reagent. HCG SERUM [id number] 00:31:00 Test Item Value Reference Range Interpretation Comments HCG SERUM QUAL (test NEGATIVE NEGATIVE This HC GQL test is NOT code = HCGQL) applicable for MALE patients.Check with nurse about probable order error.If Tumor Marker Test needed, nu rse should order test "HCG TU"(Test #[id number])---- - [id number] 00:31:00 Test Item Value Reference Range Interpretation Comments ACETAMINOPHEN (test code < 0.2 mg/dL 1.0-3.0 L CAU TION: TO = ACET) CONVERT FROM MG /DL TO MCG/ML MULTI PLY RESULT BY10 [id number] 00:31:00 Test Item Value Reference Range Interpretation Comments SALICYLATE (test code = MELYSSA) < 3.0 mg/dL 2.8-20.0 N [id number] 00:31:00 Test Item Value Reference Range Interpretation Comments ALCOHOL (test code = 3 mg/dL 0.0-3.0 N ------- INTERPRET ALC) DAVID DATA NOTE: POSITIVE SCREEN ING RESULTS SHOULD BE CONSI DERED PRESUMPTIVE.WHE N COLLECTED FOR MEDICAL PUR POSES ONLY. SPECIMEN WILL N OTBE COLLECTED BY AIN OF CUSTODY.IF A CO NFIRMATION OF POSITIVE RES ULTS IS DESIRED, ACONFI RMATION TEST MUST BE RE QUESTED BY THE PHYSICIAN Bryan T ANADDITIONAL ARGE TO THE PATIENT. COVID 19 Asymptomatic IH [id number] 00:12:00 Test Item Value Reference Range Interpretation Comments COVID 19 Asymptomatic IH AG (test NEGATIVE NEGATIVE code = COVNONPUIAG) CBC W/O [id number] 23:52:00 Test Item Value Reference Range Interpretation Comments WHITE BLOOD CELL (test code = 6.0 K/mm3 4.5-12.5 N WBC) RED BLOOD CELL (test code = 3.09 mill/mm3 3.7-5.2 L RBC) HEMOGLOBIN (test code = HGB) 9.1 gram/dL 11.5-15.5 L HEMATOCRIT (test code = HCT) 27.9 % 36.0-46.0 L MEAN CELL VOLUME (test code = 90.3 fL 80-98 N MCV) MEAN CELL HGB (test code = MCH) 29.4 picogram 27.0-33.0 N MEAN CELL HGB CONCETRATION 32.6 gram/dL 33.0-36.0 L (test code = MCHC) RED CELL DISTRIBUTION WIDTH 14.8 % 11.6-16.2 N (test code = RDW) PLATELET COUNT (test code = 250 K/mm3 150-450 N PLT) MEAN PLATELET VOLUME (test code 9.9 fL 6.7-11.0 N = MPV) GLUCOSE [id number] 07:59:00 Test Item Value Reference Range Interpretation Comments GLUCOSE BEDSIDE (test 82 MG/DL 70-110 N Perfor med by certified code = GLUBED) file conversion operator at [facility] CBC W/AUTO [id number] 07:55:00 Test Item Value Reference Range Interpretation Comments WHITE BLOOD CELL (test code = 6.6 x10 3/uL 4.5-11.0 N WBC) RED BLOOD CELL (test code = 3.09 x10 6/uL 3.54-5.02 L RBC) HEMOGLOBIN (test code = HGB) 9.1 g/dL 11.0-15.0 L HEMATOCRIT (test code = HCT) 26.3 % 33.0-45.0 L MEAN CELL VOLUME (test code = 85.1 fL 81.0-99.0 N MCV) MEAN CELL HGB (test code = MCH) 29.4 pg 27.0-33.0 N MEAN CELL HGB CONCETRATION 34.6 g/dL 33.0-37.0 N (test code = MCHC) RED CELL DISTRIBUTION WIDTH CV 14.6 % 11.5-14.5 H (test code = RDW) RED CELL DISTRIBUTION WIDTH SD 45.0 fL 37.0-54.0 N (test code = RDW-SD) PLATELET COUNT (test code = 162 x10 3/uL 150-400 N PLT) MEAN PLATELET VOLUME (test code 11.0 fL 7.0-9.0 H = MPV) NEUTROPHIL % (test code = NT%) 61.1 % 56.0-77.0 N IMMATURE GRANULOCYTE % (test 0.3 % 0.0-2.0 N code = IG%) LYMPHOCYTE % (test code = LY%) 27.3 % 14.0-32.0 N MONOCYTE % (test code = MO%) 7.9 % 4.8-9.0 N EOSINOPHIL % (test code = EO%) 2.0 % 0.3-3.7 N BASOPHIL % (test code = BA%) 1.4 % 0.0-2.0 N NUCLEATED RBC % (test code = 0.0 % 0-0 N NRBC%) NEUTROPHIL # (test code = NT#) 4.04 x10 3/uL 2.0-7.6 N IMMATURE GRANULOCYTE # (test 0.02 x10 3/uL 0.00-0.03 N code = IG#) LYMPHOCYTE # (test code = LY#) 1.80 x10 3/uL 1.0-3.8 N MONOCYTE # (test code = MO#) 0.52 x10 3/uL 0.1-0.8 N EOSINOPHIL # (test code = EO#) 0.13 x10 3/uL 0.0-0.2 N BASOPHIL # (test code = BA#) 0.09 x10 3/uL 0.0-0.2 N NUCLEATED RBC # (test code = 0.00 x10 3/uL 0.0-0.1 N NRBC#) MANUAL DIFF REQUIRED (test code NO = MDIFF) BASIC METABOLIC [id number] 07:52:00 Test Item Value Reference Range Interpretation Comments SODIUM (test code = 136 mEq/L 134-147 N NA) POTASSIUM (test code 3.9 mEq/L 3.4-5.0 = K) CHLORIDE (test code 109 mEq/L 100-108 H = CL) CARBON DIOXIDE (test 16 mEq/l 21-33 L code = CO2) ANION GAP (test code 15 0-20 N = GAP) GLUCOSE (test code = 68 mg/dL 70-110 L GLU) BLOOD UREA NITROGEN 10 mg/dL 7-18 N (test code = BUN) GLOMERULAR 46.1 95-105 L The Glomerular FILTRATION RATE Filtration R ate is a (test code = GFR) calculated parameterbased on serum Creatinine, pat ient age and sex. GFR va luesless than 60 mL/min/ 1.73 square meters a re indicative ofCh ronic Kidney Disease. Values less than 15 mL/min/1.73squa re meters indicate Kidney failure. The calculation forGFR is based on the CKD-EPI (2020) calculat ion. This formulais race indifferent and is the recommended for sudhir for GFRby the [facility] Kidney Foundati on for Adults.The GFR will not calculate if th e sex is unknown or if thepatient's ag e is <18 years. CREATININE (test 1.4 mg/dL 0.6-1.3 H code = CREAT) CALCIUM (test code = 8.9 mg/dL 8.0-10.5 N CA) COMPREHENSIVE METABOLIC [id number] 08:32:00 Test Item Value Reference Range Interpretation Comments SODIUM (test code = 136 mEq/L 134-147 N NA) POTASSIUM (test code 2.9 mEq/L 3.4-5.0 LL Critica l result called = K) to [place] [facility] 05 2604/26/23Nurse r ead back resut and tech confirmed it's correct? YES CHLORIDE (test code 109 mEq/L 100-108 H = CL) CARBON DIOXIDE (test 15 mEq/l 21-33 L code = CO2) ANION GAP (test code 15 0-20 N = GAP) GLUCOSE (test code = 72 mg/dL 70-110 N GLU) BLOOD UREA NITROGEN 8 mg/dL 7-18 N (test code = BUN) GLOMERULAR 42.5 95-105 L The Glomerular FILTRATION RATE Filtration R ate [...] recommended for [facility]by the [facility] for Ad[facility].The GFR will not calculate i f the sex is unknown or if thepatient's ag e is <18 years. CREATININE (test 1.5 mg/dL 0.6-1.3 H code = CREAT) TOTAL PROTEIN (test 4.8 g/dL 6.4-8.2 L code = PROT) ALBUMIN (test code = 2.60 g/dL 3.4-5.0 L ALB) CALCIUM (test code = 8.4 mg/dL 8.0-10.5 N CA) BILIRUBIN TOTAL 0.40 mg/dL 0.0-1.0 (test code = BILT) SGOT/AST (test code 13 IUnit/L 15-37 L = AST) SGPT/ALT (test code 12 IUnit/L 30-65 L = ALT) ALKALINE PHOSPHATASE 263 IUnit/L 20-125 H TOTAL (test code = ALKP) CBC W/AUTO [id number] 08:18:00 Test Item Value Reference Range Interpretation Comments WHITE BLOOD CELL (test code = 9.8 x10 3/uL 4.5-11.0 N WBC) RED BLOOD CELL (test code = 3.37 x10 6/uL 3.54-5.02 L RBC) HEMOGLOBIN (test code = HGB) 9.7 g/dL 11.0-15.0 L HEMATOCRIT (test code = HCT) 29.4 % 33.0-45.0 L MEAN CELL VOLUME (test code = 87.2 fL 81.0-99.0 N MCV) MEAN CELL HGB (test code = MCH) 28.8 pg 27.0-33.0 N MEAN CELL HGB CONCETRATION 33.0 g/dL 33.0-37.0 N (test code = MCHC) RED CELL DISTRIBUTION WIDTH CV 14.3 % 11.5-14.5 N (test code = RDW) PLATELET COUNT (test code = 186 x10 3/uL 150-400 N PLT) NEUTROPHIL % (test code = NT%) 79.2 % 56.0-77.0 H LYMPHOCYTE % (test code = LY%) 14.4 % 14.0-32.0 N NEUTROPHIL # (test code = NT#) 7.72 x10 3/uL 2.0-7.6 H LYMPHOCYTE # (test code = LY#) 1.40 x10 3/uL 1.0-3.8 N MANUAL DIFF REQUIRED (test code NO = MDIFF) RED CELL DISTRIBUTION WIDTH SD 45.1 fL 37.0-54.0 N (test code = RDW-SD) MEAN PLATELET VOLUME (test code 10.8 fL 7.0-9.0 H = MPV) IMMATURE GRANULOCYTE % (test 0.3 % 0.0-2.0 N code = IG%) MONOCYTE % (test code = MO%) 4.5 % 4.8-9.0 L EOSINOPHIL % (test code = EO%) 0.6 % 0.3-3.7 N BASOPHIL % (test code = BA%) 1.0 % 0.0-2.0 N NUCLEATED RBC % (test code = 0.0 % 0-0 N NRBC%) IMMATURE GRANULOCYTE # (test 0.03 x10 3/uL 0.00-0.03 N code = IG#) MONOCYTE # (test code = MO#) 0.44 x10 3/uL 0.1-0.8 N EOSINOPHIL # (test code = EO#) 0.06 x10 3/uL 0.0-0.2 N BASOPHIL # (test code = BA#) 0.10 x10 3/uL 0.0-0.2 N NUCLEATED RBC # (test code = 0.00 x10 3/uL 0.0-0.1 N NRBC#) GLUCOSE [id number] 07:59:00 Test Item Value Reference Range Interpretation Comments GLUCOSE BEDSIDE (test 79 MG/DL 70-110 N [facility] med by certified code = GLUBED) file conversion operator at [facility] - NM GASTRIC [id number] 00:00:00 [facility] 1975 Sex: F FAX: Lelia Meyer DO [phone] [place]: St: ADM FAX: Adriana Perkins Name: LIZBET RAHMAN [facility] : 1975 Age/S: 47/F [address] [place] [address] Bl Unit #: [id number] Loc: G.6630 [place] [address] Phys: Adriana Leiva ch Acct: [id number] Dis Date: Status: ADM IN PHONE #: [phone] Exam Date: 04/26/2023 1002 FAX #: [phone] Reason: N/V; poor oral intake; r/o gastroparesis EXAMS: CPT CODE: [id number] NM GASTRIC EMPTYING [id number] PROCEDURE INFORMATION: Exam: NM Gastric emptying Exam date and time: 10:00 AM Age: 47 years old Clinical indication: Nausea and vomiting and other: Stomach pain; Additional info: N/v; Poor oral intake; R/O gastroparesis TECHNIQUE: Imaging protocol: Gastric emptying was performed with technetium sulfur colloid mixed with solid meal. A region of interest was drawn around the stomach and time/activity curve of gastric emptying is calculated. Projections: Anterior imaging obtained of the abdomen. Radiopharmaceutical: Oral 1 mCi Tc-99m sulfur colloid mixed with solid meal. Time of imaging post radiopharmaceutical administration: 45 minutes. COMPARISON: CT ABD PELVIS W/O CONT 04/21/2023 11:02 AM FINDINGS: There is rapid solid gastric emptying noted. There is progression of the radiotracer into bowel. The T-1/2 is 26.6 minutes. At 45 minutes, 15% activity remained in the stomach. IMPRESSION: 1. Rapid nuclear medicine solid gastric emptying study, as noted above. Standards: Rapid emptying: <70% at 30 minutes <30% at 60 minutes. at 1011 Reported and signed by: Chad Braun M.D. CC: Lelia Hassan DO; Adriana CABELLO Technologist: KEVON Rogel (N)(CT); ... Trnscrd Date/Time/By: 04/26/2023 (1011) : By: [email or web address] Orig Print D/T: S: 04/26/2023 (1011) PAGE 1 SignedReportGLUCOSE [id number] 16:14:00 Test Item Value Reference Range Interpretation Comments GLUCOSE BEDSIDE (test 98 MG/DL 70-110 N Perfor med by certified code = GLUBED) file conversion operator at [facility] GLUCOSE [id number] 11:51:00 Test Item Value Reference Range Interpretation Comments GLUCOSE BEDSIDE (test 89 MG/DL 70-110 N Perfor med by certified code = GLUBED) file conversion operator at [facility] GLUCOSE [id number] 08:04:00 Test Item Value Reference Range Interpretation Comments GLUCOSE BEDSIDE (test 69 MG/DL 70-110 L Perfor med by certified code = GLUBED) file conversion operator at [facility] COMPREHENSIVE METABOLIC [id number] 08:03:00 Test Item Value Reference Range Interpretation Comments SODIUM (test code = 134 mEq/L 134-147 N NA) POTASSIUM (test code 3.5 mEq/L 3.4-5.0 N = K) CHLORIDE (test code 110 mEq/L 100-108 H = CL) CARBON DIOXIDE (test 17 mEq/l 21-33 L code = CO2) ANION GAP (test code 10 0-20 N = GAP) GLUCOSE (test code = 77 mg/dL 70-110 N GLU) BLOOD UREA NITROGEN 13 mg/dL 7-18 N (test code = BUN) GLOMERULAR 39.3 95-105 L The Glomerular FILTRATION RATE Filtration R ate [...] recommended for su[facility]ir for [facility]by the [facility] for Ad[facility].The GFR will not calculate i f the sex is unknown or if thepatient's ag e is <18 years. CREATININE (test 1.6 mg/dL 0.6-1.3 H code = CREAT) TOTAL PROTEIN (test 4.9 g/dL 6.4-8.2 L code = PROT) ALBUMIN (test code = 2.70 g/dL 3.4-5.0 L ALB) CALCIUM (test code = 7.7 mg/dL 8.0-10.5 L CA) BILIRUBIN TOTAL 0.30 mg/dL 0.0-1.0 N (test code = BILT) SGOT/AST (test code 14 IUnit/L 15-37 L = AST) SGPT/ALT (test code 12 IUnit/L 30-65 L = ALT) ALKALINE PHOSPHATASE 279 IUnit/L 20-125 H TOTAL (test code = ALKP) CBC W/AUTO [id number] 07:57:00 Test Item Value Reference Range Interpretation Comments WHITE BLOOD CELL (test code = 7.9 x10 3/uL 4.5-11.0 N WBC) RED BLOOD CELL (test code = 3.21 x10 6/uL 3.54-5.02 L RBC) HEMOGLOBIN (test code = HGB) 9.4 g/dL 11.0-15.0 L HEMATOCRIT (test code = HCT) 27.3 % 33.0-45.0 L MEAN CELL VOLUME (test code = 85.0 fL 81.0-99.0 N MCV) MEAN CELL HGB (test code = MCH) 29.3 pg 27.0-33.0 N MEAN CELL HGB CONCETRATION 34.4 g/dL 33.0-37.0 N (test code = MCHC) RED CELL DISTRIBUTION WIDTH CV 14.1 % 11.5-14.5 N (test code = RDW) RED CELL DISTRIBUTION WIDTH SD 43.7 fL 37.0-54.0 N (test code = RDW-SD) PLATELET COUNT (test code = 203 x10 3/uL 150-400 N PLT) MEAN PLATELET VOLUME (test code 10.6 fL 7.0-9.0 H = MPV) NEUTROPHIL % (test code = NT%) 73.9 % 56.0-77.0 N IMMATURE GRANULOCYTE % (test 0.4 % 0.0-2.0 N code = IG%) LYMPHOCYTE % (test code = LY%) 18.1 % 14.0-32.0 N MONOCYTE % (test code = MO%) 6.1 % 4.8-9.0 N EOSINOPHIL % (test code = EO%) 0.5 % 0.3-3.7 N BASOPHIL % (test code = BA%) 1.0 % 0.0-2.0 N NUCLEATED RBC % (test code = 0.0 % 0-0 N NRBC%) NEUTROPHIL # (test code = NT#) 5.82 x10 3/uL 2.0-7.6 N IMMATURE GRANULOCYTE # (test 0.03 x10 3/uL 0.00-0.03 N code = IG#) LYMPHOCYTE # (test code = LY#) 1.43 x10 3/uL 1.0-3.8 N MONOCYTE # (test code = MO#) 0.48 x10 3/uL 0.1-0.8 N EOSINOPHIL # (test code = EO#) 0.04 x10 3/uL 0.0-0.2 N BASOPHIL # (test code = BA#) 0.08 x10 3/uL 0.0-0.2 N NUCLEATED RBC # (test code = 0.00 x10 3/uL 0.0-0.1 N NRBC#) MANUAL DIFF REQUIRED (test code NO = MDIFF) GLUCOSE [id number] 20:03:00 Test Item Value Reference Range Interpretation Comments GLUCOSE BEDSIDE (test 89 MG/DL 70-110 N [facility] med by certified code = GLUBED) file conversion operator at [facility] GLUCOSE [id number] 17:31:00 Test Item Value Reference Range Interpretation Comments GLUCOSE BEDSIDE (test 70 MG/DL 70-110 N Perfor med by certified code = GLUBED) file conversion operator at [facility] GLUCOSE [id number] 12:26:00 Test Item Value Reference Range Interpretation Comments GLUCOSE BEDSIDE (test 79 MG/DL 70-110 N Per[facility] med by certified code = GLUBED) file conversion operator at [facility] CBC W/AUTO [id number] 08:53:00 Test Item Value Reference Range Interpretation Comments WHITE BLOOD CELL (test code = 5.8 x10 3/uL 4.5-11.0 WBC) RED BLOOD CELL (test code = 3.06 x10 6/uL 3.54-5.02 L RBC) HEMOGLOBIN (test code = HGB) 8.8 g/dL 11.0-15.0 L HEMATOCRIT (test code = HCT) 25.8 % 33.0-45.0 L MEAN CELL VOLUME (test code = 84.3 fL 81.0-99.0 N MCV) MEAN CELL HGB (test code = MCH) 28.8 pg 27.0-33.0 N MEAN CELL HGB CONCETRATION 34.1 g/dL 33.0-37.0 N (test code = MCHC) RED CELL DISTRIBUTION WIDTH CV 14.2 % 11.5-14.5 N (test code = RDW) RED CELL DISTRIBUTION WIDTH SD 43.5 fL 37.0-54.0 N (test code = RDW-SD) PLATELET COUNT (test code = 203 x10 3/uL 150-400 N PLT) MEAN PLATELET VOLUME (test code 11.2 fL 7.0-9.0 H = MPV) NEUTROPHIL % (test code = NT%) 61.8 % 56.0-77.0 N IMMATURE GRANULOCYTE % (test 0.3 % 0.0-2.0 N code = IG%) LYMPHOCYTE % (test code = LY%) 26.9 % 14.0-32.0 N MONOCYTE % (test code = MO%) 8.7 % 4.8-9.0 N EOSINOPHIL % (test code = EO%) 0.9 % 0.3-3.7 N BASOPHIL % (test code = BA%) 1.4 % 0.0-2.0 N NUCLEATED RBC % (test code = 0.0 % 0-0 N NRBC%) NEUTROPHIL # (test code = NT#) 3.56 x10 3/uL 2.0-7.6 N IMMATURE GRANULOCYTE # (test 0.02 x10 3/uL 0.00-0.03 N code = IG#) LYMPHOCYTE # (test code = LY#) 1.55 x10 3/uL 1.0-3.8 N MONOCYTE # (test code = MO#) 0.50 x10 3/uL 0.1-0.8 N EOSINOPHIL # (test code = EO#) 0.05 x10 3/uL 0.0-0.2 N BASOPHIL # (test code = BA#) 0.08 x10 3/uL 0.0-0.2 N NUCLEATED RBC # (test code = 0.00 x10 3/uL 0.0-0.1 N NRBC#) MANUAL DIFF REQUIRED (test code NO = MDIFF) GLUCOSE [id number] 08:03:00 Test Item Value Reference Range Interpretation Comments GLUCOSE BEDSIDE (test 72 MG/DL 70-110 N [facility] med by certified code = GLUBED) file conversion operator at [facility] COMPREHENSIVE METABOLIC [id number] 07:35:00 Test Item Value Reference Range Interpretation Comments SODIUM (test code = 134 mEq/L 134-147 N NA) POTASSIUM (test code 3.2 mEq/L 3.4-5.0 L = K) CHLORIDE (test code 105 mEq/L 100-108 N = CL) CARBON DIOXIDE (test 16 mEq/l 21-33 L code = CO2) ANION GAP (test code 16 0-20 N = GAP) GLUCOSE (test code = 69 mg/dL 70-110 L GLU) BLOOD UREA NITROGEN 17 mg/dL 7-18 N (test code = BUN) GLOMERULAR 26.8 95-105 L The Glomerular FILTRATION RATE Filtration R ate [...] recommended for [facility] Ad[facility].The GFR will not calculate i f the sex is unknown or if thepatient's ag e is <18 years. CREATININE (test 2.2 mg/dL 0.6-1.3 H code = CREAT) TOTAL PROTEIN (test 4.6 g/dL 6.4-8.2 L code = PROT) ALBUMIN (test code = 2.70 g/dL 3.4-5.0 L ALB) CALCIUM (test code = 7.9 mg/dL 8.0-10.5 L CA) BILIRUBIN TOTAL 0.30 mg/dL 0.0-1.0 N (test code = BILT) SGOT/AST (test code 17 IUnit/L 15-37 N = AST) SGPT/ALT (test code 15 IUnit/L 30-65 L = ALT) ALKALINE PHOSPHATASE 270 IUnit/L 20-125 H TOTAL (test code = ALKP) GLUCOSE [id number] 21:02:00 Test Item Value Reference Range Interpretation Comments GLUCOSE BEDSIDE (test 87 MG/DL 70-110 N Perfor med by certified code = GLUBED) file conversion operator at [facility] GLUCOSE [id number] 17:27:00 Test Item Value Reference Range Interpretation Comments GLUCOSE BEDSIDE (test 80 MG/DL 70-110 N Perfor med by certified code = GLUBED) file conversion operator at [facility] GLUCOSE [id number] 11:39:00 Test Item Value Reference Range Interpretation Comments GLUCOSE BEDSIDE (test 80 MG/DL 70-110 N Perfor med by certified code = GLUBED) file conversion operator at [facility] COMPREHENSIVE METABOLIC [id number] 08:20:00 Test Item Value Reference Range Interpretation Comments SODIUM (test code = 129 mEq/L 134-147 L NA) POTASSIUM (test code 3.3 mEq/L 3.4-5.0 L = K) CHLORIDE (test code 106 mEq/L 100-108 N = CL) CARBON DIOXIDE (test 19 mEq/l 21-33 L code = CO2) ANION GAP (test code 7 0-20 N = GAP) GLUCOSE (test code = 70 mg/dL 70-110 N GLU) BLOOD UREA NITROGEN 28 mg/dL 7-18 H (test code = BUN) GLOMERULAR 17.1 95-105 L The Glomerular FILTRATION RATE Filtration R ate [...] the recommended for sudhir for GFRby the [facility] Kidney Foundati on for Adults.The GFR will not calculate i f the sex is unknown or if thepatient's ag e is <18 years. CREATININE (test 3.2 mg/dL 0.6-1.3 H code = CREAT) TOTAL PROTEIN (test 5.1 g/dL 6.4-8.2 L code = PROT) ALBUMIN (test code = 2.80 g/dL 3.4-5.0 L ALB) CALCIUM (test code = 8.1 mg/dL 8.0-10.5 N CA) BILIRUBIN TOTAL 0.30 mg/dL 0.0-1.0 N (test code = BILT) SGOT/AST (test code 26 IUnit/L 15-37 N = AST) SGPT/ALT (test code 20 IUnit/L 30-65 L = ALT) ALKALINE PHOSPHATASE 302 IUnit/L 20-125 H TOTAL (test code = ALKP) CBC W/AUTO [id number] 07:23:00 Test Item Value Reference Range Interpretation Comments WHITE BLOOD CELL (test code = 10.2 x10 3/uL 4.5-11.0 WBC) RED BLOOD CELL (test code = 3.28 x10 6/uL 3.54-5.02 L RBC) HEMOGLOBIN (test code = HGB) 9.6 g/dL 11.0-15.0 L HEMATOCRIT (test code = HCT) 27.9 % 33.0-45.0 L MEAN CELL VOLUME (test code = 85.1 fL 81.0-99.0 N MCV) MEAN CELL HGB (test code = MCH) 29.3 pg 27.0-33.0 N MEAN CELL HGB CONCETRATION 34.4 g/dL 33.0-37.0 N (test code = MCHC) RED CELL DISTRIBUTION WIDTH CV 13.9 % 11.5-14.5 N (test code = RDW) RED CELL DISTRIBUTION WIDTH SD 43.4 fL 37.0-54.0 N (test code = RDW-SD) PLATELET COUNT (test code = 210 x10 3/uL 150-400 N PLT) MEAN PLATELET VOLUME (test code 10.8 fL 7.0-9.0 H = MPV) NEUTROPHIL % (test code = NT%) 81.3 % 56.0-77.0 H IMMATURE GRANULOCYTE % (test 0.4 % 0.0-2.0 N code = IG%) LYMPHOCYTE % (test code = LY%) 11.3 % 14.0-32.0 L MONOCYTE % (test code = MO%) 6.2 % 4.8-9.0 N EOSINOPHIL % (test code = EO%) 0.1 % 0.3-3.7 L BASOPHIL % (test code = BA%) 0.7 % 0.0-2.0 N NUCLEATED RBC % (test code = 0.0 % 0-0 N NRBC%) NEUTROPHIL # (test code = NT#) 8.32 x10 3/uL 2.0-7.6 H IMMATURE GRANULOCYTE # (test 0.04 x10 3/uL 0.00-0.03 H code = IG#) LYMPHOCYTE # (test code = LY#) 1.15 x10 3/uL 1.0-3.8 N MONOCYTE # (test code = MO#) 0.63 x10 3/uL 0.1-0.8 N EOSINOPHIL # (test code = EO#) 0.01 x10 3/uL 0.0-0.2 N BASOPHIL # (test code = BA#) 0.07 x10 3/uL 0.0-0.2 N NUCLEATED RBC # (test code = 0.00 x10 3/uL 0.0-0.1 N NRBC#) MANUAL DIFF REQUIRED (test code NO = MDIFF) CBC W/AUTO [id number] 11:52:00 Test Item Value Reference Range Interpretation Comments WHITE BLOOD CELL (test code = 7.1 x10 3/uL 4.5-11.0 N WBC) RED BLOOD CELL (test code = 3.56 x10 6/uL 3.54-5.02 N RBC) HEMOGLOBIN (test code = HGB) 10.2 g/dL 11.0-15.0 L HEMATOCRIT (test code = HCT) 29.6 % 33.0-45.0 L MEAN CELL VOLUME (test code = 83.1 fL 81.0-99.0 N MCV) MEAN CELL HGB (test code = MCH) 28.7 pg 27.0-33.0 N MEAN CELL HGB CONCETRATION 34.5 g/dL 33.0-37.0 N (test code = MCHC) RED CELL DISTRIBUTION WIDTH CV 13.9 % 11.5-14.5 N (test code = RDW) RED CELL DISTRIBUTION WIDTH SD 41.5 fL 37.0-54.0 N (test code = RDW-SD) PLATELET COUNT (test code = 236 x10 3/uL 150-400 N PLT) MEAN PLATELET VOLUME (test code 12.2 fL 7.0-9.0 H = MPV) NEUTROPHIL % (test code = NT%) 75.1 % 56.0-77.0 N IMMATURE GRANULOCYTE % (test 0.4 % 0.0-2.0 N code = IG%) LYMPHOCYTE % (test code = LY%) 17.1 % 14.0-32.0 N MONOCYTE % (test code = MO%) 6.6 % 4.8-9.0 N EOSINOPHIL % (test code = EO%) 0.1 % 0.3-3.7 L BASOPHIL % (test code = BA%) 0.7 % 0.0-2.0 N NUCLEATED RBC % (test code = 0.0 % 0-0 N NRBC%) NEUTROPHIL # (test code = NT#) 5.30 x10 3/uL 2.0-7.6 N IMMATURE GRANULOCYTE # (test 0.03 x10 3/uL 0.00-0.03 N code = IG#) LYMPHOCYTE # (test code = LY#) 1.21 x10 3/uL 1.0-3.8 N MONOCYTE # (test code = MO#) 0.47 x10 3/uL 0.1-0.8 N EOSINOPHIL # (test code = EO#) 0.01 x10 3/uL 0.0-0.2 N BASOPHIL # (test code = BA#) 0.05 x10 3/uL 0.0-0.2 N NUCLEATED RBC # (test code = 0.00 x10 3/uL 0.0-0.1 N NRBC#) MANUAL DIFF REQUIRED (test code NO = MDIFF) COMPREHENSIVE METABOLIC [id number] 09:08:00 Test Item Value Reference Range Interpretation Comments SODIUM (test code = 127 mEq/L 134-147 L NA) POTASSIUM (test code 3.6 mEq/L 3.4-5.0 = K) CHLORIDE (test code 100 mEq/L 100-108 N = CL) CARBON DIOXIDE (test 19 mEq/l 21-33 L code = CO2) ANION GAP (test code 12 0-20 N = GAP) GLUCOSE (test code = 83 mg/dL 70-110 N GLU) BLOOD UREA NITROGEN 38 mg/dL 7-18 H (test code = BUN) GLOMERULAR 11.7 95-105 L The Glomerular FILTRATION RATE Filtration R ate [...] ag e is <18 years. CREATININE (test 4.4 mg/dL 0.6-1.3 H code = CREAT) TOTAL PROTEIN (test 5.4 g/dL 6.4-8.2 L code = PROT) ALBUMIN (test code = 2.90 g/dL 3.4-5.0 L ALB) CALCIUM (test code = 8.3 mg/dL 8.0-10.5 N CA) BILIRUBIN TOTAL 0.30 mg/dL 0.0-1.0 (test code = BILT) SGOT/AST (test code 31 IUnit/L 15-37 N = AST) SGPT/ALT (test code 21 IUnit/L 30-65 L = ALT) ALKALINE PHOSPHATASE 380 IUnit/L 20-125 H TOTAL (test code = ALKP) LACTIC [id number] 15:57:00 Test Item Value Reference Range Interpretation Comments LACTIC ACID (test code = LACT) 1.5 mmol/L 0.4-1.9 N BASIC METABOLIC [id number] 12:41:00 Test Item Value Reference Range Interpretation Comments SODIUM (test code = 126 mEq/L 134-147 L NA) POTASSIUM (test code 4.7 mEq/L 3.4-5.0 N = K) CHLORIDE (test code 92 mEq/L 100-108 L = CL) CARBON DIOXIDE (test 22 mEq/l 21-33 N code = CO2) ANION GAP (test code 16 0-20 N = GAP) GLUCOSE (test code = 90 mg/dL 70-110 N GLU) BLOOD UREA NITROGEN 43 mg/dL 7-18 H (test code = BUN) GLOMERULAR 10.0 95-105 L The Glomerular FILTRATION RATE Filtration R ate is a (test code = GFR) calculated parameterbased on serum Creatinine, pat ient age and sex. GFR va luesless than 60 mL/min/ 1.73 square meters a re indicative ofCh ronic Kidney Disease. Values less than 15 mL/min/1.73squa re meters indicate Kidney failure. The calculation forGFR is based on the CKD-EPI (2020) calculat ion. This formulais race indifferent and is the recommended for sudhir for GFRby the [facility] Found[facility] on for Adults.The GFR will not calculate if th e sex is unknown or if thepatient's ag e is <18 years. CREATININE (test 5.0 mg/dL 0.6-1.3 H code = CREAT) CALCIUM (test code = 9.1 mg/dL 8.0-10.5 N CA) HEPATIC FUNCTION [id number] 12:41:00 Test Item Value Reference Range Interpretation Comments TOTAL PROTEIN (test code = PROT) 6.7 g/dL 6.4-8.2 N ALBUMIN (test code = ALB) 3.60 g/dL 3.4-5.0 N BILIRUBIN TOTAL (test code = 0.60 mg/dL 0.0-1.0 N BILT) BILIRUBIN DIRECT (test code = 0.30 MG/DL 0.0-0.30 N BILD) BILIRUBIN INDIRECT (test code = 0.30 MG/DL BILIND) SGOT/AST (test code = AST) 42 IUnit/L 15-37 H SGPT/ALT (test code = ALT) 27 IUnit/L 30-65 L ALKALINE PHOSPHATASE TOTAL (test 500 IUnit/L 20-125 H code = ALKP) [id number] 12:41:00 Test Item Value Reference Range Interpretation Comments LIPASE (test code = LIP) 48 U/L 13-57 N UA RFLX MICR CULT IF [id number] 12:30:00 Test Item Value Reference Range Interpretation Comments UA COLOR (test code = COLU) YELLOW YEL/STRAW UA APPEARANCE (test code = TURBID CLEAR A APPU) UA GLUCOSE DIPSTICK (test code NEGATIVE NEGATIVE = DGLUU) UA BILIRUBIN DIPSTICK (test NEGATIVE NEGATIVE code = BILU) UA KETONE DIPSTICK (test code NEGATIVE NEGATIVE = KETU) UA SPECIFIC GRAVITY (test code 1.017 1.005-1.030 N = SGU) UA BLOOD DIPSTICK (test code = 3+ NEGATIVE A JOSE CARLOS) UA PH DIPSTICK (test code = 5.0 5.0-7.0 N DIMITRI) UA PROTEIN DIPSTICK (test code 2+ NEGATIVE A = PROU) UA UROBILINIOGEN DIPSTICK 0.2 mg/dL 0.2-1.0 (test code = URO) UA NITRITE DIPSTICK (test code NEGATIVE NEGATIVE = MACIEJ) UA LEUKOCYTE ESTERASE DIPSTICK 2+ NEGATIVE A (test code = LEUU) UA WBC (test code = WBCU) >50 WBC/HPF 0-3 A UA RBC (test code = RBCU) >50 RBC/HPF 0-3 A UA WBC NO REFLEX (test code = >50 WBC/HPF 0-3 A WBCUCL) UA BACTERIA (test code = BACU) 4+ /HPF NONE SEEN A UA SQUAMOUS CELLS (test code = NONE SEEN /HPF NONE SEEN SQU) Indication for culture: Suprapubic PainSpecimen Description: CLEAN CATCHCBC W/AUTO [id number] 12:19:00 Test Item Value Reference Range Interpretation Comments WHITE BLOOD CELL (test code = 9.4 x10 3/uL 4.5-11.0 WBC) RED BLOOD CELL (test code = 4.29 x10 6/uL 3.54-5.02 N RBC) HEMOGLOBIN (test code = HGB) 12.5 g/dL 11.0-15.0 N HEMATOCRIT (test code = HCT) 35.4 % 33.0-45.0 N MEAN CELL VOLUME (test code = 82.5 fL 81.0-99.0 N MCV) MEAN CELL HGB (test code = MCH) 29.1 pg 27.0-33.0 N MEAN CELL HGB CONCETRATION 35.3 g/dL 33.0-37.0 N (test code = MCHC) RED CELL DISTRIBUTION WIDTH CV 13.6 % 11.5-14.5 N (test code = RDW) RED CELL DISTRIBUTION WIDTH SD 40.7 fL 37.0-54.0 N (test code = RDW-SD) PLATELET COUNT (test code = 248 x10 3/uL 150-400 N PLT) MEAN PLATELET VOLUME (test code 11.8 fL 7.0-9.0 H = MPV) NEUTROPHIL % (test code = NT%) 81.5 % 56.0-77.0 H IMMATURE GRANULOCYTE % (test 0.6 % 0.0-2.0 N code = IG%) LYMPHOCYTE % (test code = LY%) 11.7 % 14.0-32.0 L MONOCYTE % (test code = MO%) 5.1 % 4.8-9.0 N EOSINOPHIL % (test code = EO%) 0.2 % 0.3-3.7 L BASOPHIL % (test code = BA%) 0.9 % 0.0-2.0 N NUCLEATED RBC % (test code = 0.0 % 0-0 N NRBC%) NEUTROPHIL # (test code = NT#) 7.65 x10 3/uL 2.0-7.6 H IMMATURE GRANULOCYTE # (test 0.06 x10 3/uL 0.00-0.03 H code = IG#) LYMPHOCYTE # (test code = LY#) 1.10 x10 3/uL 1.0-3.8 N MONOCYTE # (test code = MO#) 0.48 x10 3/uL 0.1-0.8 N EOSINOPHIL # (test code = EO#) 0.02 x10 3/uL 0.0-0.2 N BASOPHIL # (test code = BA#) 0.08 x10 3/uL 0.0-0.2 N NUCLEATED RBC # (test code = 0.00 x10 3/uL 0.0-0.1 N NRBC#) MANUAL DIFF REQUIRED (test code NO = MDIFF) - CT ABD PELVIS W/O [id number] 00:00:00 [facility] 1975 Sex: F Name: LIZBET RAHMAN [facility] : 1975 Age/S: 47 / F [address] [place] [address] Unit #: [id number] Loc: [place] [address] Phys: An Wong MD Acct: [id number] Dis Date: Status: REG ERPHONE #: [phone] Exam Date: 04/21/2023 1102 FAX #: [phone] Reason: abdominal pain EXAMS: CPT CODE: [id number] CT ABD PELVIS W/O CONT 70573 PROCEDURE INFORMATION: Exam: CT Abdomen And Pelvis Without Contrast Exam date and time: 04/21/2023 11:02 AM Age: 47 years old Clinical indication: Abdominal pain TECHNIQUE: Imaging protocol: Computed tomography of the abdomen and pelvis without contrast. Radiation optimization: All CT scans at this facility use at least one of these dose optimization tech niques: automated exposure control; mA and/or kV adjustment per patient size (includes targeted exams where dose is matched to clinical indication); or iterative reconstruction. REPORTING DATA: Count of CT and Cardiac NM exams in prior 12 months: This patient has received 2 known CTs and 0 known cardiac nuclear medicine studies in the 12 months prior to the current study. COMPARISON: CT ABD PELVIS W/O CONT 03/18/2023 4:26 PM FINDINGS: Liver: Within normal limits for noncontrast technique. No mass. Gallbladder and bile ducts: Chronic postsurgical changes from cholecystectomy. Pancreas: Within normal l imits for noncontrast technique. No ductal dilation. Spleen: Within normal limits for noncontrast technique. No splenomegaly. Adrenal glands: Normal. No mass. Kidneys and ureters: No hydronephrosis orhydroureter. No renal or ureteral calculi. 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 No evidence of bowel obstruction. Appendix: No evidence of appendicitis. Intraperitoneal space: Again seen moderate amount of inflammatory changes along the omentum anteriorly and inferiorly, which may represent omental infarct and/or phlegmonous changes. No encapsulated collection to suggest abscess. Vasculature: No abdominal aortic aneurysm. Lymph nodes: No enlarged lymph nodes. Urinary bladder: Capone catheter within the urinary bladder. Reproductive: Unremarkable as visualized. Bones/joints: Diffuse bony demineralization. Dextroscoliosis of the lumbar spine. Mild hypertrophic changes within the spine. Soft tissues: Midline abdominal incision scar. PAGE 1 Signed Report (CONTINUED) Name: LIZBET RAHMAN [facility] : 1975 Age/S: 47 / F [address] [place], [place] [address]vd Unit #: [id number] Loc: [place] [address] Phys: An Wong MD Acct: [id number] Dis Date: Status: REG ER PHONE #: [phone] Exam Date: 04/21/2023 110 FAX #: [phone] Reason: abdominal p ain EXAMS: CPT CODE: [id number] CT ABD PELVIS W/O CONT [id number] (Continued) IMPRESSION: 1. Again seen moderate amount of inflammatory changes along the omentum anteriorly and inferiorly, which may represent omental infarct and/or phlegmonous changes. No encapsulated collection to suggest abscess. 2. Postsu rgical changes with right lower quadrant ileostomy and right mid abdominal colostomy. No evidence ofbowel obstruction. 3. Cholecystectomy. [id number] Reported and signed by: Micah Berrios M.D. CC: An Wong MD Technologist:Navi Rose RT( R)(CT); Cherelle CTDI: DLP: Trnscb Date/Time: 04/21/2023 ([id number]) [id number] PAGE 2 Signed ReportGLUCOSE [id number] 16:15:00 Test Item Value Reference Range Interpretation Comments GLUCOSE BEDSIDE (test 103 MG/DL 70-110 N Perfor med by certified code = GLUBED) file conversion operator at [facility] GLUCOSE [id number] 11:45:00 Test Item Value Reference Range Interpretation Comments GLUCOSE BEDSIDE (test 92 MG/DL 70-110 N Perfor med by certified code = GLUBED) file conversion operator at [facility] BASIC METABOLIC [id number] 09:03:00 Test Item Value Reference Range Interpretation Comments SODIUM (test code = 137 mEq/L 134-147 N NA) POTASSIUM (test code 3.5 mEq/L 3.4-5.0 N = K) CHLORIDE (test code 101 mEq/L 100-108 N = CL) CARBON DIOXIDE (test 28 mEq/l 21-33 N code = CO2) ANION GAP (test code 12 0-20 N = GAP) GLUCOSE (test code = 78 mg/dL 70-110 N GLU) BLOOD UREA NITROGEN 13 mg/dL 7-18 N (test code = BUN) GLOMERULAR 32.0 95-105 L The Glomerular FILTRATION RATE Filtration R ate is a (test code = GFR) calculated parameterbased on serum Creatinine, pat ient age and sex. GFR va luesless than 60 mL/min/ 1.73 square meters a re indicative ofCh ronic Kidney Disease. Values less than 15 mL/min/1.73squa re meters indicate Kidney failure. The calculation forGFR is based on the CKD-EPI (2020) calculat ion. This formulais race indifferent and is the recommended for sudhir for GFRby the Natio n[facility] Kidney Foundati on for Adults.The GFR will not calculate if th e sex is unknown or if thepatient's ag e is <18 years. CREATININE (test 1.9 mg/dL 0.6-1.3 H code = CREAT) CALCIUM (test code = 9.7 mg/dL 8.0-10.5 N CA) [id number] 09:03:00 Test Item Value Reference Range Interpretation Comments MAGNESIUM (test code = MAG) 2.08 mg/dL 1.80-2.40 N GLUCOSE [id number] 08:29:00 Test Item Value Reference Range Interpretation Comments GLUCOSE BEDSIDE (test 73 MG/DL 70-110 N [facility] med by certified code = GLUBED) file conversion operator at [facility] CBC W/AUTO [id number] 07:42:00 Test Item Value Reference Range Interpretation Comments WHITE BLOOD CELL (test code = 5.3 x10 3/uL 4.5-11.0 N WBC) RED BLOOD CELL (test code = 3.64 x10 6/uL 3.54-5.02 N RBC) HEMOGLOBIN (test code = HGB) 10.8 g/dL 11.0-15.0 L HEMATOCRIT (test code = HCT) 34.3 % 33.0-45.0 N MEAN CELL VOLUME (test code = 94.2 fL 81.0-99.0 N MCV) MEAN CELL HGB (test code = MCH) 29.7 pg 27.0-33.0 N MEAN CELL HGB CONCETRATION 31.5 g/dL 33.0-37.0 L (test code = MCHC) RED CELL DISTRIBUTION WIDTH CV 18.4 % 11.5-14.5 H (test code = RDW) RED CELL DISTRIBUTION WIDTH SD 63.0 fL 37.0-54.0 H (test code = RDW-SD) PLATELET COUNT (test code = 438 x10 3/uL 150-400 H PLT) MEAN PLATELET VOLUME (test code 11.1 fL 7.0-9.0 H = MPV) NEUTROPHIL % (test code = NT%) 66.0 % 56.0-77.0 N IMMATURE GRANULOCYTE % (test 0.4 % 0.0-2.0 N code = IG%) LYMPHOCYTE % (test code = LY%) 20.9 % 14.0-32.0 N MONOCYTE % (test code = MO%) 7.8 % 4.8-9.0 N EOSINOPHIL % (test code = EO%) 3.2 % 0.3-3.7 N BASOPHIL % (test code = BA%) 1.7 % 0.0-2.0 N NUCLEATED RBC % (test code = 0.0 % 0-0 N NRBC%) NEUTROPHIL # (test code = NT#) 3.48 x10 3/uL 2.0-7.6 N IMMATURE GRANULOCYTE # (test 0.02 x10 3/uL 0.00-0.03 N code = IG#) LYMPHOCYTE # (test code = LY#) 1.10 x10 3/uL 1.0-3.8 N MONOCYTE # (test code = MO#) 0.41 x10 3/uL 0.1-0.8 N EOSINOPHIL # (test code = EO#) 0.17 x10 3/uL 0.0-0.2 N BASOPHIL # (test code = BA#) 0.09 x10 3/uL 0.0-0.2 N NUCLEATED RBC # (test code = 0.00 x10 3/uL 0.0-0.1 N NRBC#) MANUAL DIFF REQUIRED (test code NO = MDIFF) GLUCOSE [id number] 21:26:00 Test Item Value Reference Range Interpretation Comments GLUCOSE BEDSIDE (test 81 MG/DL 70-110 N Perfor med by certified code = GLUBED) file conversion operator at [facility] GLUCOSE [id number] 15:53:00 Test Item Value Reference Range Interpretation Comments GLUCOSE BEDSIDE (test 101 MG/DL 70-110 N Perfor med by certified code = GLUBED) file conversion operator at [facility] GLUCOSE [id number] 11:30:00 Test Item Value Reference Range Interpretation Comments GLUCOSE BEDSIDE (test 105 MG/DL 70-110 N Perfor med by certified code = GLUBED) file conversion operator at [facility] GLUCOSE [id number] 08:59:00 Test Item Value Reference Range Interpretation Comments GLUCOSE BEDSIDE (test 79 MG/DL 70-110 N Perfor med by certified code = GLUBED) file conversion operator at [facility] GLUCOSE [id number] 20:45:00 Test Item Value Reference Range Interpretation Comments GLUCOSE BEDSIDE (test 89 MG/DL 70-110 N Perfor med by certified code = GLUBED) file conversion operator at [facility] GLUCOSE [id number] 16:54:00 Test Item Value Reference Range Interpretation Comments GLUCOSE BEDSIDE (test 87 MG/DL 70-110 N Perfor med by certified code = GLUBED) file conversion operator at [facility] GLUCOSE [id number] 12:04:00 Test Item Value Reference Range Interpretation Comments GLUCOSE BEDSIDE (test 68 MG/DL 70-110 L Perfor med by certified code = GLUBED) file conversion operator at [facility] CBC W/AUTO [id number] 08:01:00 Test Item Value Reference Range Interpretation Comments WHITE BLOOD CELL (test code = 5.9 x10 3/uL 4.5-11.0 N WBC) RED BLOOD CELL (test code = 3.59 x10 6/uL 3.54-5.02 N RBC) HEMOGLOBIN (test code = HGB) 10.4 g/dL 11.0-15.0 L HEMATOCRIT (test code = HCT) 34.1 % 33.0-45.0 N MEAN CELL VOLUME (test code = 95.0 fL 81.0-99.0 N MCV) MEAN CELL HGB (test code = MCH) 29.0 pg 27.0-33.0 N MEAN CELL HGB CONCETRATION 30.5 g/dL 33.0-37.0 L (test code = MCHC) RED CELL DISTRIBUTION WIDTH CV 17.7 % 11.5-14.5 H (test code = RDW) RED CELL DISTRIBUTION WIDTH SD 62.4 fL 37.0-54.0 H (test code = RDW-SD) PLATELET COUNT (test code = 355 x10 3/uL 150-400 N PLT) MEAN PLATELET VOLUME (test code 9.4 fL 7.0-9.0 H = MPV) NEUTROPHIL % (test code = NT%) 68.0 % 56.0-77.0 N IMMATURE GRANULOCYTE % (test 0.3 % 0.0-2.0 N code = IG%) LYMPHOCYTE % (test code = LY%) 18.4 % 14.0-32.0 N MONOCYTE % (test code = MO%) 9.2 % 4.8-9.0 H EOSINOPHIL % (test code = EO%) 2.7 % 0.3-3.7 N BASOPHIL % (test code = BA%) 1.4 % 0.0-2.0 N NUCLEATED RBC % (test code = 0.0 % 0-0 N NRBC%) NEUTROPHIL # (test code = NT#) 3.98 x10 3/uL 2.0-7.6 N IMMATURE GRANULOCYTE # (test 0.02 x10 3/uL 0.00-0.03 N code = IG#) LYMPHOCYTE # (test code = LY#) 1.08 x10 3/uL 1.0-3.8 N MONOCYTE # (test code = MO#) 0.54 x10 3/uL 0.1-0.8 N EOSINOPHIL # (test code = EO#) 0.16 x10 3/uL 0.0-0.2 N BASOPHIL # (test code = BA#) 0.08 x10 3/uL 0.0-0.2 N NUCLEATED RBC # (test code = 0.00 x10 3/uL 0.0-0.1 N NRBC#) MANUAL DIFF REQUIRED (test code NO = MDIFF) BASIC METABOLIC [id number] 07:48:00 Test Item Value Reference Range Interpretation Comments SODIUM (test code = 138 mEq/L 134-147 N NA) POTASSIUM (test code 3.7 mEq/L 3.4-5.0 N = K) CHLORIDE (test code 103 mEq/L 100-108 N = CL) CARBON DIOXIDE (test 26 mEq/l 21-33 N code = CO2) ANION GAP (test code 13 0-20 N = GAP) GLUCOSE (test code = 70 mg/dL 70-110 N GLU) BLOOD UREA NITROGEN 9 mg/dL 7-18 N (test code = BUN) GLOMERULAR 39.3 95-105 L The Glomerular FILTRATION RATE Filtration R ate is a (test code = GFR) calculated parameterbased on serum Creatinine, pat ient age and sex. GFR va luesless than 60 mL/min/ 1.73 square meters a re indicative ofCh ronic Kidney Disease. Values less than 15 mL/min/1.73squa re meters indicate Kidney failure. The calculation forGFR is based on the CKD-EPI (2020) calculat ion. This formulais race indifferent and is the recommended for sudhir for GFRby the Natio n[facility] Kidney Foundati on for Adults.The GFR will not calculate if th e sex is unknown or if thepatient's ag e is <18 years. CREATININE (test 1.6 mg/dL 0.6-1.3 H code = CREAT) CALCIUM (test code = 9.7 mg/dL 8.0-10.5 N CA) [id number] 07:48:00 Test Item Value Reference Range Interpretation Comments MAGNESIUM (test code = MAG) 1.60 mg/dL 1.80-2.40 L GLUCOSE [id number] 22:02:00 Test Item Value Reference Range Interpretation Comments GLUCOSE BEDSIDE (test 92 MG/DL 70-110 N Perfor med by certified code = GLUBED) file conversion operator at [facility] GLUCOSE [id number] 15:55:00 Test Item Value Reference Range Interpretation Comments GLUCOSE BEDSIDE (test 82 MG/DL 70-110 N Perfor med by certified code = GLUBED) file conversion operator at [facility] GLUCOSE [id number] 12:06:00 Test Item Value Reference Range Interpretation Comments GLUCOSE BEDSIDE (test 92 MG/DL 70-110 N Perfor med by certified code = GLUBED) file conversion operator at [facility] GLUCOSE [id number] 08:09:00 Test Item Value Reference Range Interpretation Comments GLUCOSE BEDSIDE (test 70 MG/DL 70-110 N Perfor med by certified code = GLUBED) file conversion operator at [facility] GLUCOSE [id number] 01:02:00 Test Item Value Reference Range Interpretation Comments GLUCOSE BEDSIDE (test 71 MG/DL 70-110 N Perfor med by certified code = GLUBED) file conversion operator at [facility] GLUCOSE [id number] 00:27:00 Test Item Value Reference Range Interpretation Comments GLUCOSE BEDSIDE (test 68 MG/DL 70-110 L Perfor med by certified code = GLUBED) file conversion operator at [facility] - XR ABDOMEN 1V (KUB)2023-03-28 00:00:00 [facility] JOHNName: LIZBET RAHMAN : 1975 Sex: F FAX: Yesika Jacob MD [phone] [place]: St: ADM FAX: Dunia Galvin NP [phone] -------- Name: LIZBET RAHMAN [facility] : 1975 Age/S: 47/F [address] [place] [address] Unit #: [id number] Loc: [id number].6629 [place] [address] Phys: Dunia Coker NP Acct: [id number] Dis Date: Status: ADM IN PHONE #: [phone] Exam Date: 03/28/2023 1326 FAX #: [phone] Reason: Persistent nausea EXAMS: CPT CODE: [id number] XR ABDOMEN 1V (KUB) [id number] PROCEDURE INFORMATION: Exam: XR Abdomen Exam date and time: 03/28/2023 12:59 PMAge: 47 years old Clinical indication: Nausea; Additional info: Persistent nausea TECHNIQUE: Imaging protocol: Radiologic exam of the abdomen. Views: Frontal supine view of the abdomen. 1 View. COMPARISON: CR XR ABDOMEN AP 1 V 03/23/2023 4:12 PM FINDINGS: Gastrointestinal tract: No dilated loops of bowel. Intraperitoneal space: Surgical clips in the right upper quadrant and pelvis. Bones/joints: No acute osseous abnormality. IMPRESSION: Nonobstructive bowel gas pattern. at 1411 Reported and signed by: Margaret Wylie M.D. CC: Yesika Luo MD; Dunia Coker NP Technologist: Swetha Patel RT(R) Trnnmchristopher Date/Time/By: 03/28/2023 (1410) : By: [email or web address] Orig Print D/T: S: 03/28/2023 (1511) PAGE 1 Signed ReportGLUCOSE [id number] 21:07:00 Test Item Value Reference Range Interpretation Comments GLUCOSE BEDSIDE (test 66 MG/DL 70-110 L Perfor med by certified code = GLUBED) file conversion operator at [facility] GLUCOSE [id number] 17:18:00 Test Item Value Reference Range Interpretation Comments GLUCOSE BEDSIDE (test 87 MG/DL 70-110 N Perfor med by certified code = GLUBED) file conversion operator at [facility] GLUCOSE [id number] 11:30:00 Test Item Value Reference Range Interpretation Comments GLUCOSE BEDSIDE (test 82 MG/DL 70-110 N Perfor med by certified code = GLUBED) file conversion operator at [facility] GLUCOSE [id number] 08:21:00 Test Item Value Reference Range Interpretation Comments GLUCOSE BEDSIDE (test 73 MG/DL 70-110 N Perfor med by certified code = GLUBED) file conversion operator at [facility] GLUCOSE [id number] 00:33:00 Test Item Value Reference Range Interpretation Comments GLUCOSE BEDSIDE (test 90 MG/DL 70-110 N Perfor med by certified code = GLUBED) file conversion operator at [facility] GLUCOSE [id number] 16:52:00 Test Item Value Reference Range Interpretation Comments GLUCOSE BEDSIDE (test 71 MG/DL 70-110 N Perfor med by certified code = GLUBED) file conversion operator at [facility] GLUCOSE [id number] 11:50:00 Test Item Value Reference Range Interpretation Comments GLUCOSE BEDSIDE (test 60 MG/DL 70-110 L Perfor med by certified code = GLUBED) file conversion operator at [facility] CBC W/AUTO [id number] 08:11:00 Test Item Value Reference Range Interpretation Comments WHITE BLOOD CELL (test code = 6.1 x10 3/uL 4.5-11.0 N WBC) RED BLOOD CELL (test code = 3.48 x10 6/uL 3.54-5.02 L RBC) HEMOGLOBIN (test code = HGB) 9.9 g/dL 11.0-15.0 L HEMATOCRIT (test code = HCT) 32.7 % 33.0-45.0 L MEAN CELL VOLUME (test code = 94.0 fL 81.0-99.0 N MCV) MEAN CELL HGB (test code = MCH) 28.4 pg 27.0-33.0 N MEAN CELL HGB CONCETRATION 30.3 g/dL 33.0-37.0 L (test code = MCHC) RED CELL DISTRIBUTION WIDTH CV 18.3 % 11.5-14.5 H (test code = RDW) RED CELL DISTRIBUTION WIDTH SD 62.8 fL 37.0-54.0 H (test code = RDW-SD) PLATELET COUNT (test code = 340 x10 3/uL 150-400 N PLT) MEAN PLATELET VOLUME (test code 10.0 fL 7.0-9.0 H = MPV) NEUTROPHIL % (test code = NT%) 67.6 % 56.0-77.0 N IMMATURE GRANULOCYTE % (test 0.3 % 0.0-2.0 N code = IG%) LYMPHOCYTE % (test code = LY%) 19.2 % 14.0-32.0 N MONOCYTE % (test code = MO%) 8.7 % 4.8-9.0 N EOSINOPHIL % (test code = EO%) 3.1 % 0.3-3.7 N BASOPHIL % (test code = BA%) 1.1 % 0.0-2.0 N NUCLEATED RBC % (test code = 0.0 % 0-0 N NRBC%) NEUTROPHIL # (test code = NT#) 4.11 x10 3/uL 2.0-7.6 N IMMATURE GRANULOCYTE # (test 0.02 x10 3/uL 0.00-0.03 N code = IG#) LYMPHOCYTE # (test code = LY#) 1.17 x10 3/uL 1.0-3.8 N MONOCYTE # (test code = MO#) 0.53 x10 3/uL 0.1-0.8 N EOSINOPHIL # (test code = EO#) 0.19 x10 3/uL 0.0-0.2 N BASOPHIL # (test code = BA#) 0.07 x10 3/uL 0.0-0.2 N NUCLEATED RBC # (test code = 0.00 x10 3/uL 0.0-0.1 N NRBC#) MANUAL DIFF REQUIRED (test code NO = MDIFF) GLUCOSE [id number] 07:58:00 Test Item Value Reference Range Interpretation Comments GLUCOSE BEDSIDE (test 84 MG/DL 70-110 N Perfor med by certified code = GLUBED) file conversion operator at [facility] RENAL FUNCTION [id number] 07:46:00 Test Item Value Reference Range Interpretation Comments SODIUM (test code = 136 mEq/L 134-147 N NA) POTASSIUM (test code 4.5 mEq/L 3.4-5.0 N = K) CHLORIDE (test code = 102 mEq/L 100-108 N CL) CARBON DIOXIDE (test 25 mEq/l 21-33 N code = CO2) ANION GAP (test code 13 0-20 N = GAP) GLUCOSE (test code = 63 mg/dL 70-110 L GLU) BLOOD UREA NITROGEN 10 mg/dL 7-18 N (test code = BUN) GLOMERULAR FILTRATION 50.4 95-105 L The Gl omerular RATE (test code = Filtration Rate is a GFR) calculated parameterbased on serum Creatinine, pat [...] ag e is <18 years. CREATININE (test code 1.3 mg/dL 0.6-1.3 N = CREAT) ALBUMIN (test code = 2.80 g/dL 3.4-5.0 L ALB) CALCIUM (test code = 9.5 mg/dL 8.0-10.5 N CA) PHOSPHOROUS (test 6.9 MG/DL 2.5-4.9 H code = PHOS) GLUCOSE [id number] 20:16:00 Test Item Value Reference Range Interpretation Comments GLUCOSE BEDSIDE (test 76 MG/DL 70-110 N Perfor med by certified code = GLUBED) file conversion operator at [facility] GLUCOSE [id number] 18:58:00 Test Item Value Reference Range Interpretation Comments GLUCOSE BEDSIDE (test 77 MG/DL 70-110 N Perfor med by certified code = GLUBED) file conversion operator at [facility] GLUCOSE [id number] 18:58:00 Test Item Value Reference Range Interpretation Comments GLUCOSE BEDSIDE (test 76 MG/DL 70-110 N Perfor med by certified code = GLUBED) file conversion operator at [facility] GLUCOSE [id number] 16:54:00 Test Item Value Reference Range Interpretation Comments GLUCOSE BEDSIDE (test 97 MG/DL 70-110 N Perfor med by certified code = GLUBED) file conversion operator at [facility] CRYOGLOBULIN [id number] 15:13:00 Test Item Value Reference Range Interpretation Comments CRYOGLOBULIN QUAL None detected A Presumpti ve PositivePreliminary (test code = qualitative cry oglobulin (72 CRYOQL) hour) result wa spresumptive positive. Confi rmatory testing will becomplete d in approximately 1 week.Please see confirmatory te st results.This test was develo ped and its performance characteristics determined by [facility]. It has not been cleared orappro raven by the Food and Drug Administration. Presumptive PositivePrelimi nary qualitative cryoglobulin (7 2 hour) result waspresumptive positive. Confirmatory te sting will becompleted in approximately 1 week.Please see confirmatory test results.Th is test was developed and i ts performance characteristics determined by [facility]. It has not been cleared orappro raven by the Food and Drug Admini stration. GLUCOSE [id number] 11:42:00 Test Item Value Reference Range Interpretation Comments GLUCOSE BEDSIDE (test 75 MG/DL 70-110 N Perfor med by certified code = GLUBED) file conversion operator at [facility] GLUCOSE [id number] 08:11:00 Test Item Value Reference Range Interpretation Comments GLUCOSE BEDSIDE (test 70 MG/DL 70-110 N Perfor med by certified code = GLUBED) file conversion operator at [facility] CBC W/AUTO [id number] 07:50:00 Test Item Value Reference Range Interpretation Comments WHITE BLOOD CELL (test code = 4.9 x10 3/uL 4.5-11.0 N WBC) RED BLOOD CELL (test code = 3.40 x10 6/uL 3.54-5.02 L RBC) HEMOGLOBIN (test code = HGB) 9.9 g/dL 11.0-15.0 L HEMATOCRIT (test code = HCT) 31.5 % 33.0-45.0 L MEAN CELL VOLUME (test code = 92.6 fL 81.0-99.0 N MCV) MEAN CELL HGB (test code = MCH) 29.1 pg 27.0-33.0 N MEAN CELL HGB CONCETRATION 31.4 g/dL 33.0-37.0 L (test code = MCHC) RED CELL DISTRIBUTION WIDTH CV 18.6 % 11.5-14.5 H (test code = RDW) PLATELET COUNT (test code = 312 x10 3/uL 150-400 N PLT) NEUTROPHIL % (test code = NT%) 68.3 % 56.0-77.0 N LYMPHOCYTE % (test code = LY%) 19.7 % 14.0-32.0 N NEUTROPHIL # (test code = NT#) 3.36 x10 3/uL 2.0-7.6 N LYMPHOCYTE # (test code = LY#) 0.97 x10 3/uL 1.0-3.8 L MANUAL DIFF REQUIRED (test code NO = MDIFF) RED CELL DISTRIBUTION WIDTH SD 62.5 fL 37.0-54.0 H (test code = RDW-SD) MEAN PLATELET VOLUME (test code 10.0 fL 7.0-9.0 H = MPV) IMMATURE GRANULOCYTE % (test 0.2 % 0.0-2.0 N code = IG%) MONOCYTE % (test code = MO%) 6.7 % 4.8-9.0 N EOSINOPHIL % (test code = EO%) 3.9 % 0.3-3.7 H BASOPHIL % (test code = BA%) 1.2 % 0.0-2.0 N NUCLEATED RBC % (test code = 0.0 % 0-0 N NRBC%) IMMATURE GRANULOCYTE # (test 0.01 x10 3/uL 0.00-0.03 N code = IG#) MONOCYTE # (test code = MO#) 0.33 x10 3/uL 0.1-0.8 N EOSINOPHIL # (test code = EO#) 0.19 x10 3/uL 0.0-0.2 N BASOPHIL # (test code = BA#) 0.06 x10 3/uL 0.0-0.2 N NUCLEATED RBC # (test code = 0.00 x10 3/uL 0.0-0.1 N NR#) RENAL FUNCTION [id number] 07:29:00 Test Item Value Reference Range Interpretation Comments SODIUM (test code = 138 mEq/L 134-147 N NA) POTASSIUM (test code 4.8 mEq/L 3.4-5.0 N = K) CHLORIDE (test code = 102 mEq/L 100-108 N CL) CARBON DIOXIDE (test 30 mEq/l 21-33 N code = CO2) ANION GAP (test code 11 0-20 N = GAP) GLUCOSE (test code = 69 mg/dL 70-110 L GLU) BLOOD UREA NITROGEN 15 mg/dL 7-18 N (test code = BUN) GLOMERULAR FILTRATION 46.1 95-105 L The Gl omerular RATE (test code = Filtration Rate is a GFR) calculated parameterbased on serum Creatinine, pat [...] ag e is <18 years. CREATININE (test code 1.4 mg/dL 0.6-1.3 H = CREAT) ALBUMIN (test code = 2.80 g/dL 3.4-5.0 L ALB) CALCIUM (test code = 9.7 mg/dL 8.0-10.5 N CA) PHOSPHOROUS (test 6.6 MG/DL 2.5-4.9 H code = PHOS) [id number] 07:29:00 Test Item Value Reference Range Interpretation Comments MAGNESIUM (test code = MAG) 1.66 mg/dL 1.80-2.40 L GLUCOSE [id number] 20:35:00 Test Item Value Reference Range Interpretation Comments GLUCOSE BEDSIDE (test 78 MG/DL 70-110 N Perfor med by certified code = GLUBED) file conversion operator at [facility] GLUCOSE [id number] 20:19:00 Test Item Value Reference Range Interpretation Comments GLUCOSE BEDSIDE (test 71 MG/DL 70-110 N Perfor med by certified code = GLUBED) file conversion operator at [facility] GLUCOSE [id number] 12:17:00 Test Item Value Reference Range Interpretation Comments GLUCOSE BEDSIDE (test 82 MG/DL 70-110 N Perfor med by certified code = GLUBED) file conversion operator at [facility] [id number] 09:49:00 Test Item Value Reference Range Interpretation Comments MAGNESIUM (test code = MAG) 2.53 mg/dL 1.80-2.40 H GLUCOSE [id number] 08:00:00 Test Item Value Reference Range Interpretation Comments GLUCOSE BEDSIDE (test 66 MG/DL 70-110 L Perfor med by certified code = GLUBED) file conversion operator at [facility] RENAL FUNCTION [id number] 07:43:00 Test Item Value Reference Range Interpretation Comments SODIUM (test code = 137 mEq/L 134-147 N NA) POTASSIUM (test code 4.5 mEq/L 3.4-5.0 N = K) CHLORIDE (test code = 105 mEq/L 100-108 N CL) CARBON DIOXIDE (test 25 mEq/l 21-33 N code = CO2) ANION GAP (test code 12 0-20 N = GAP) GLUCOSE (test code = 71 mg/dL 70-110 N GLU) BLOOD UREA NITROGEN 12 mg/dL 7-18 N (test code = BUN) GLOMERULAR FILTRATION 50.4 95-105 L The Gl omerular RATE (test code = Filtration Rate is a GFR) calculated parameterbased on serum Creatinine, pat ient age and sex. GFR va luesless than 60 mL/min/ 1.73 square meters a re indicative ofCh ronic Kidney Disease. Values less than 15 mL/min/1.73squa re meters indicate Kidney failure. The calculation for GFR is based on the CK D-EPI (2020) calculat ion. This formulais race indifferent and is the recommended for sudhir for GFRby the Nat nal Kidney Foundati on for Adults.The GFR will not calculate if th e sex is unknown or if thepatient's ag e is <18 years. CREATININE (test code 1.3 mg/dL 0.6-1.3 N = CREAT) ALBUMIN (test code = 2.70 g/dL 3.4-5.0 L ALB) CALCIUM (test code = 9.5 mg/dL 8.0-10.5 N CA) PHOSPHOROUS (test 6.3 MG/DL 2.5-4.9 H code = PHOS) CBC W/AUTO [id number] 07:32:00 Test Item Value Reference Range Interpretation Comments WHITE BLOOD CELL (test code = 4.5 x10 3/uL 4.5-11.0 N WBC) RED BLOOD CELL (test code = 3.29 x10 6/uL 3.54-5.02 L RBC) HEMOGLOBIN (test code = HGB) 9.7 g/dL 11.0-15.0 L HEMATOCRIT (test code = HCT) 30.8 % 33.0-45.0 L MEAN CELL VOLUME (test code = 93.6 fL 81.0-99.0 N MCV) MEAN CELL HGB (test code = MCH) 29.5 pg 27.0-33.0 N MEAN CELL HGB CONCETRATION 31.5 g/dL 33.0-37.0 L (test code = MCHC) RED CELL DISTRIBUTION WIDTH CV 18.6 % 11.5-14.5 H (test code = RDW) RED CELL DISTRIBUTION WIDTH SD 63.0 fL 37.0-54.0 H (test code = RDW-SD) PLATELET COUNT (test code = 281 x10 3/uL 150-400 N PLT) MEAN PLATELET VOLUME (test code 10.0 fL 7.0-9.0 H = MPV) NEUTROPHIL % (test code = NT%) 63.7 % 56.0-77.0 N IMMATURE GRANULOCYTE % (test 0.4 % 0.0-2.0 N code = IG%) LYMPHOCYTE % (test code = LY%) 23.3 % 14.0-32.0 N MONOCYTE % (test code = MO%) 8.1 % 4.8-9.0 N EOSINOPHIL % (test code = EO%) 3.4 % 0.3-3.7 N BASOPHIL % (test code = BA%) 1.1 % 0.0-2.0 N NUCLEATED RBC % (test code = 0.0 % 0-0 N NRBC%) NEUTROPHIL # (test code = NT#) 2.85 x10 3/uL 2.0-7.6 N IMMATURE GRANULOCYTE # (test 0.02 x10 3/uL 0.00-0.03 N code = IG#) LYMPHOCYTE # (test code = LY#) 1.04 x10 3/uL 1.0-3.8 N MONOCYTE # (test code = MO#) 0.36 x10 3/uL 0.1-0.8 N EOSINOPHIL # (test code = EO#) 0.15 x10 3/uL 0.0-0.2 N BASOPHIL # (test code = BA#) 0.05 x10 3/uL 0.0-0.2 N NUCLEATED RBC # (test code = 0.00 x10 3/uL 0.0-0.1 N NRBC#) MANUAL DIFF REQUIRED (test code NO = MDIFF) GLUCOSE [id number] 21:05:00 Test Item Value Reference Range Interpretation Comments GLUCOSE BEDSIDE (test 102 MG/DL 70-110 N Perfor med by certified code = GLUBED) file conversion operator at [facility] GLUCOSE [id number] 17:58:00 Test Item Value Reference Range Interpretation Comments GLUCOSE BEDSIDE (test 93 MG/DL 70-110 N Perfor med by certified code = GLUBED) file conversion operator at [facility] RENAL FUNCTION [id number] 07:32:00 Test Item Value Reference Range Interpretation Comments SODIUM (test code = 138 mEq/L 134-147 N NA) POTASSIUM (test code 4.6 mEq/L 3.4-5.0 N = K) CHLORIDE (test code = 104 mEq/L 100-108 N CL) CARBON DIOXIDE (test 26 mEq/l 21-33 N code = CO2) ANION GAP (test code 13 0-20 N = GAP) GLUCOSE (test code = 66 mg/dL 70-110 L GLU) BLOOD UREA NITROGEN 16 mg/dL 7-18 N (test code = BUN) GLOMERULAR FILTRATION 50.4 95-105 L The Gl omerular RATE (test code = Filtration Rate is a GFR) calculated parameterbased on serum Creatinine, pat ient age and sex. GFR va luesless than 60 mL/min/ 1.73 square meters a re indicative ofCh ronic Kidney Disease. Values less than 15 mL/min/1.73squa re meters indicate Kidney failure. The calculation for GFR is based on the CK D-EPI (2020) calculat ion. This formulais race indifferent and is the recommended for sudhir for GFRby the [facility] Kidney Foundati on for Adults.The GFR will not calculate if th e sex is unknown or if thepatient's ag e is <18 years. CREATININE (test code 1.3 mg/dL 0.6-1.3 N = CREAT) ALBUMIN (test code = 2.50 g/dL 3.4-5.0 L ALB) CALCIUM (test code = 9.1 mg/dL 8.0-10.5 N CA) PHOSPHOROUS (test 5.5 MG/DL 2.5-4.9 H code = PHOS) [id number] 07:32:00 Test Item Value Reference Range Interpretation Comments MAGNESIUM (test code = MAG) 1.43 mg/dL 1.80-2.40 L CBC W/AUTO [id number] 06:58:00 Test Item Value Reference Range Interpretation Comments WHITE BLOOD CELL (test code = 4.5 x10 3/uL 4.5-11.0 N WBC) RED BLOOD CELL (test code = 3.02 x10 6/uL 3.54-5.02 L RBC) HEMOGLOBIN (test code = HGB) 8.6 g/dL 11.0-15.0 L HEMATOCRIT (test code = HCT) 27.5 % 33.0-45.0 L MEAN CELL VOLUME (test code = 91.1 fL 81.0-99.0 N MCV) MEAN CELL HGB (test code = MCH) 28.5 pg 27.0-33.0 N MEAN CELL HGB CONCETRATION 31.3 g/dL 33.0-37.0 L (test code = MCHC) RED CELL DISTRIBUTION WIDTH CV 18.4 % 11.5-14.5 H (test code = RDW) RED CELL DISTRIBUTION WIDTH SD 60.6 fL 37.0-54.0 H (test code = RDW-SD) PLATELET COUNT (test code = 264 x10 3/uL 150-400 N PLT) MEAN PLATELET VOLUME (test code 10.2 fL 7.0-9.0 H = MPV) NEUTROPHIL % (test code = NT%) 58.8 % 56.0-77.0 N IMMATURE GRANULOCYTE % (test 0.7 % 0.0-2.0 N code = IG%) LYMPHOCYTE % (test code = LY%) 26.8 % 14.0-32.0 N MONOCYTE % (test code = MO%) 8.1 % 4.8-9.0 N EOSINOPHIL % (test code = EO%) 3.8 % 0.3-3.7 H BASOPHIL % (test code = BA%) 1.8 % 0.0-2.0 N NUCLEATED RBC % (test code = 0.0 % 0-0 N NRBC%) NEUTROPHIL # (test code = NT#) 2.63 x10 3/uL 2.0-7.6 N IMMATURE GRANULOCYTE # (test 0.03 x10 3/uL 0.00-0.03 N code = IG#) LYMPHOCYTE # (test code = LY#) 1.20 x10 3/uL 1.0-3.8 N MONOCYTE # (test code = MO#) 0.36 x10 3/uL 0.1-0.8 N EOSINOPHIL # (test code = EO#) 0.17 x10 3/uL 0.0-0.2 N BASOPHIL # (test code = BA#) 0.08 x10 3/uL 0.0-0.2 N NUCLEATED RBC # (test code = 0.00 x10 3/uL 0.0-0.1 N NRBC#) MANUAL DIFF REQUIRED (test code NO = MDIFF) - XR ABDOMEN 1V (KU)2023-03-23 00:00:00 [facility] : 1975 Sex: F FAX: Yesika Jacob MD [phone] [place]: St: [facility] FAX: Adriana Perkins Name: LIZBET RAHMAN [facility] :1975 Age/S: 47/F [address] [place] [address] Unit #: [id number] Loc: G.6629 [place] [address] Phys: Adriana Perkins Acct: [id number] Dis Date: Status: ADM IN PHONE #: [phone] Exam Date: 03/23/2023 1617 FAX #: [phone] Reason: PERSISTENT NAUSEA AND VOMMITING EXAMS: CPT CODE: [id number] XR ABDOMEN 1V (KUB) [id number] PROCEDURE INFORMATION: Exam: XR Abdomen Exam date and time: 03/23/2023 4:12 PM Age: 47 years old Clinical indication: Nausea and vomiting; Additional info: Persistent nausea and vommiting TECHNIQUE: Imaging protocol: Radiologic exam of the abdomen. Views: Frontal supine view of the abdomen. 1 View. COMPARISON: CT ABD PELVIS W/O CONT 03/18/2023 4:26 PM FINDINGS: Diaphragm: Elevation of the right hemidiaphragm. Gastrointestinal tract: Right lower quadrant colostomy. Nonspecific bowel gas pattern. No gaseous distention of bowel loops. Organs: Cholecystectomy clips. Bones/joints: No acute osseous abnormality. IMPRESSION: No acute findings. at 4731 Reported and signed by: Triston Martinez M.D. CC: Yesika Luo MD; Barry CABELLO Technologist: Navi Marinelli, RT(R); Pete Matamoros RT(R) Trnscrd Date/Time/By: 03/23/2023 (810) : By: [email or web address] Orig Print D/T: S: 03/23/2023 (4970) PAGE 1 Signed ReportGLUCOSE [id number] 13:17:00 Test Item Value Reference Range Interpretation Comments GLUCOSE BEDSIDE (test 99 MG/DL 70-110 N Perfor med by certified code = GLUBED) file conversion operator at [facility] GLUCOSE [id number] 08:20:00 Test Item Value Reference Range Interpretation Comments GLUCOSE BEDSIDE (test 77 MG/DL 70-110 N [facility] by certified code = GLUBED) file conversion operator at [facility] RENAL FUNCTION [id number] 07:33:00 Test Item Value Reference Range Interpretation Comments SODIUM (test code = 137 mEq/L 134-147 N NA) POTASSIUM (test code 4.8 mEq/L 3.4-5.0 N = K) CHLORIDE (test code = 107 mEq/L 100-108 N CL) CARBON DIOXIDE (test 21 mEq/l 21-33 code = CO2) ANION GAP (test code 14 0-20 N = GAP) GLUCOSE (test code = 72 mg/dL 70-110 N GLU) BLOOD UREA NITROGEN 16 mg/dL 7-18 N (test code = BUN) GLOMERULAR FILTRATION 42.5 95-105 L The Gl omerular RATE (test code = Filtration Rate is a GFR) calculated parameterbased on serum Creatinine, pat ient age and sex. GFR va luesless than 60 mL/min/ 1.73 square meters a re indicative ofCh ronic Kidney Disease. Values less than 15 mL/min/1.73squa re meters indicate Kidney failure. The calculation for GFR is based on the CK D-EPI (2020) calculat ion. This formulais race indifferent and is the recommended for sudhir for GFRby the [facility] Kidney Foundati on for Adults.The GFR will not calculate if th e sex is unknown or if thepatient's ag e is <18 years. CREATININE (test code 1.5 mg/dL 0.6-1.3 H = CREAT) ALBUMIN (test code = 2.70 g/dL 3.4-5.0 L ALB) CALCIUM (test code = 9.0 mg/dL 8.0-10.5 N CA) PHOSPHOROUS (test 4.9 MG/DL 2.5-4.9 N code = PHOS) [id number] 07:33:00 Test Item Value Reference Range Interpretation Comments MAGNESIUM (test code = MAG) 2.03 mg/dL 1.80-2.40 CBC W/AUTO [id number] 06:57:00 Test Item Value Reference Range Interpretation Comments WHITE BLOOD CELL (test code = 4.5 x10 3/uL 4.5-11.0 N WBC) RED BLOOD CELL (test code = 3.04 x10 6/uL 3.54-5.02 L RBC) HEMOGLOBIN (test code = HGB) 8.7 g/dL 11.0-15.0 L HEMATOCRIT (test code = HCT) 27.8 % 33.0-45.0 L MEAN CELL VOLUME (test code = 91.4 fL 81.0-99.0 N MCV) MEAN CELL HGB (test code = MCH) 28.6 pg 27.0-33.0 N MEAN CELL HGB CONCETRATION 31.3 g/dL 33.0-37.0 L (test code = MCHC) RED CELL DISTRIBUTION WIDTH CV 18.1 % 11.5-14.5 H (test code = RDW) RED CELL DISTRIBUTION WIDTH SD 59.6 fL 37.0-54.0 H (test code = RDW-SD) PLATELET COUNT (test code = 281 x10 3/uL 150-400 N PLT) MEAN PLATELET VOLUME (test code 10.8 fL 7.0-9.0 H = MPV) NEUTROPHIL % (test code = NT%) 64.8 % 56.0-77.0 N IMMATURE GRANULOCYTE % (test 0.7 % 0.0-2.0 N code = IG%) LYMPHOCYTE % (test code = LY%) 21.8 % 14.0-32.0 N MONOCYTE % (test code = MO%) 7.9 % 4.8-9.0 N EOSINOPHIL % (test code = EO%) 3.5 % 0.3-3.7 N BASOPHIL % (test code = BA%) 1.3 % 0.0-2.0 N NUCLEATED RBC % (test code = 0.0 % 0-0 N NRBC%) NEUTROPHIL # (test code = NT#) 2.94 x10 3/uL 2.0-7.6 N IMMATURE GRANULOCYTE # (test 0.03 x10 3/uL 0.00-0.03 N code = IG#) LYMPHOCYTE # (test code = LY#) 0.99 x10 3/uL 1.0-3.8 L MONOCYTE # (test code = MO#) 0.36 x10 3/uL 0.1-0.8 N EOSINOPHIL # (test code = EO#) 0.16 x10 3/uL 0.0-0.2 N BASOPHIL # (test code = BA#) 0.06 x10 3/uL 0.0-0.2 N NUCLEATED RBC # (test code = 0.00 x10 3/uL 0.0-0.1 N NRBC#) MANUAL DIFF REQUIRED (test code NO = MDIFF) BASIC METABOLIC [id number] 17:36:00 Test Item Value Reference Range Interpretation Comments SODIUM (test code = 136 mEq/L 134-147 N NA) POTASSIUM (test code 5.2 mEq/L 3.4-5.0 H = K) CHLORIDE (test code 109 mEq/L 100-108 H = CL) CARBON DIOXIDE (test 16 mEq/l 21-33 L code = CO2) ANION GAP (test code 16 0-20 N = GAP) GLUCOSE (test code = 72 mg/dL 70-110 N GLU) BLOOD UREA NITROGEN 15 mg/dL 7-18 N (test code = BUN) GLOMERULAR 36.5 95-105 L The Glomerular FILTRATION RATE Filtration R ate is a (test code = GFR) calculated parameterbased on serum Creatinine, pat ient age and sex. GFR va luesless than 60 mL/min/ 1.73 square meters a re indicative ofCh ronic Kidney Disease. Values less than 15 mL/min/1.73squa re meters indicate Kidney failure. The calculation forGFR is based on the CKD-EPI (2020) calculat ion. This formulais race indifferent and is the recommended for sudhir for GFRby the [facility] for Adults.The GFR will not calculate if th e sex is unknown or if thepatient's ag e is <18 years. CREATININE (test 1.7 mg/dL 0.6-1.3 H code = CREAT) CALCIUM (test code = 9.0 mg/dL 8.0-10.5 N CA) [id number] 17:36:00 Test Item Value Reference Range Interpretation Comments PHOSPHOROUS (test code = PHOS) 5.5 MG/DL 2.5-4.9 H [id number] 17:36:00 Test Item Value Reference Range Interpretation Comments MAGNESIUM (test code = MAG) 1.61 mg/dL 1.80-2.40 L CALCIUM [id number] 17:36:00 Test Item Value Reference Range Interpretation Comments CALCIUM IONIZED (test code = LM) 1.05 MMOL/L 1.09-1.30 L CBC W/AUTO [id number] 17:32:00 Test Item Value Reference Range Interpretation Comments WHITE BLOOD CELL (test code = 4.7 x10 3/uL 4.5-11.0 WBC) RED BLOOD CELL (test code = 3.00 x10 6/uL 3.54-5.02 L RBC) HEMOGLOBIN (test code = HGB) 8.5 g/dL 11.0-15.0 L HEMATOCRIT (test code = HCT) 27.8 % 33.0-45.0 L MEAN CELL VOLUME (test code = 92.7 fL 81.0-99.0 N MCV) MEAN CELL HGB (test code = MCH) 28.3 pg 27.0-33.0 N MEAN CELL HGB CONCETRATION 30.6 g/dL 33.0-37.0 L (test code = MCHC) RED CELL DISTRIBUTION WIDTH CV 18.0 % 11.5-14.5 H (test code = RDW) RED CELL DISTRIBUTION WIDTH SD 60.4 fL 37.0-54.0 H (test code = RDW-SD) PLATELET COUNT (test code = 257 x10 3/uL 150-400 N PLT) MEAN PLATELET VOLUME (test code 10.8 fL 7.0-9.0 H = MPV) NEUTROPHIL % (test code = NT%) 64.8 % 56.0-77.0 N IMMATURE GRANULOCYTE % (test 0.2 % 0.0-2.0 N code = IG%) LYMPHOCYTE % (test code = LY%) 21.4 % 14.0-32.0 N MONOCYTE % (test code = MO%) 9.1 % 4.8-9.0 H EOSINOPHIL % (test code = EO%) 3.0 % 0.3-3.7 N BASOPHIL % (test code = BA%) 1.5 % 0.0-2.0 N NUCLEATED RBC % (test code = 0.0 % 0-0 N NRBC%) NEUTROPHIL # (test code = NT#) 3.06 x10 3/uL 2.0-7.6 N IMMATURE GRANULOCYTE # (test 0.01 x10 3/uL 0.00-0.03 N code = IG#) LYMPHOCYTE # (test code = LY#) 1.01 x10 3/uL 1.0-3.8 N MONOCYTE # (test code = MO#) 0.43 x10 3/uL 0.1-0.8 N EOSINOPHIL # (test code = EO#) 0.14 x10 3/uL 0.0-0.2 N BASOPHIL # (test code = BA#) 0.07 x10 3/uL 0.0-0.2 N NUCLEATED RBC # (test code = 0.00 x10 3/uL 0.0-0.1 N NRBC#) MANUAL DIFF REQUIRED (test code NO = MDIFF) GLUCOSE [id number] 16:41:00 Test Item Value Reference Range Interpretation Comments GLUCOSE BEDSIDE (test 67 MG/DL 70-110 L Perfor med by certified code = GLUBED) file conversion operator at [facility] GLUCOSE [id number] 11:49:00 Test Item Value Reference Range Interpretation Comments GLUCOSE BEDSIDE (test 87 MG/DL 70-110 N Perfor med by certified code = GLUBED) file conversion operator at [facility] GLUCOSE [id number] 09:45:00 Test Item Value Reference Range Interpretation Comments GLUCOSE BEDSIDE (test 84 MG/DL 70-110 N Perfor med by certified code = GLUBED) file conversion operator at [facility] GLUCOSE [id number] 08:51:00 Test Item Value Reference Range Interpretation Comments GLUCOSE BEDSIDE (test 67 MG/DL 70-110 L Perfor med by certified code = GLUBED) file conversion operator at [facility] GLUCOSE [id number] 21:26:00 Test Item Value Reference Range Interpretation Comments GLUCOSE BEDSIDE (test 79 MG/DL 70-110 N Perfor med by certified code = GLUBED) file conversion operator at [facility] GLUCOSE [id number] 17:47:00 Test Item Value Reference Range Interpretation Comments GLUCOSE BEDSIDE (test 102 MG/DL 70-110 N Perfor med by certified code = GLUBED) file conversion operator at [facility] GLUCOSE [id number] 12:29:00 Test Item Value Reference Range Interpretation Comments GLUCOSE BEDSIDE (test 88 MG/DL 70-110 N Perfor med by certified code = GLUBED) file conversion operator at [facility] GLUCOSE [id number] 08:28:00 Test Item Value Reference Range Interpretation Comments GLUCOSE BEDSIDE (test 76 MG/DL 70-110 N [facility] med by certified code = GLUBED) file conversion operator at [facility] COMPREHENSIVE METABOLIC [id number] 05:28:00 Test Item Value Reference Range Interpretation Comments SODIUM (test code = 134 mEq/L 134-147 N NA) POTASSIUM (test code 4.8 mEq/L 3.4-5.0 N = K) CHLORIDE (test code 101 mEq/L 100-108 N = CL) CARBON DIOXIDE (test 22 mEq/l 21-33 N code = CO2) ANION GAP (test code 16 0-20 N = GAP) GLUCOSE (test code = 72 mg/dL 70-110 N GLU) BLOOD UREA NITROGEN 29 mg/dL 7-18 H (test code = BUN) GLOMERULAR 24.2 95-105 L The Glomerular FILTRATION RATE Filtration R ate [...] the recommended for sudhir for GFRby the [facility]ney Foundati on for Adults.The GFR will not calculate i f the sex is unknown or if thepatient's ag e is <18 years. CREATININE (test 2.4 mg/dL 0.6-1.3 H code = CREAT) TOTAL PROTEIN (test 6.2 g/dL 6.4-8.2 L code = PROT) ALBUMIN (test code = 3.40 g/dL 3.4-5.0 N ALB) CALCIUM (test code = 9.8 mg/dL 8.0-10.5 N CA) BILIRUBIN TOTAL 0.40 mg/dL 0.0-1.0 N (test code = BILT) SGOT/AST (test code 31 IUnit/L 15-37 N = AST) SGPT/ALT (test code 10 IUnit/L 30-65 L = ALT) ALKALINE PHOSPHATASE 326 IUnit/L 20-125 H TOTAL (test code = ALKP) [id number] 05:28:00 Test Item Value Reference Range Interpretation Comments PHOSPHOROUS (test code = PHOS) 5.8 MG/DL 2.5-4.9 H [id number] 05:28:00 Test Item Value Reference Range Interpretation Comments MAGNESIUM (test code = MAG) 2.09 mg/dL 1.80-2.40 N CALCIUM [id number] 05:28:00 Test Item Value Reference Range Interpretation Comments CALCIUM IONIZED (test code = LM) 1.21 MMOL/L 1.09-1.30 N CBC W/AUTO [id number] 05:21:00 Test Item Value Reference Range Interpretation Comments WHITE BLOOD CELL (test code = 8.0 x10 3/uL 4.5-11.0 N WBC) RED BLOOD CELL (test code = 3.37 x10 6/uL 3.54-5.02 L RBC) HEMOGLOBIN (test code = HGB) 9.8 g/dL 11.0-15.0 L HEMATOCRIT (test code = HCT) 30.4 % 33.0-45.0 L MEAN CELL VOLUME (test code = 90.2 fL 81.0-99.0 N MCV) MEAN CELL HGB (test code = MCH) 29.1 pg 27.0-33.0 N MEAN CELL HGB CONCETRATION 32.2 g/dL 33.0-37.0 L (test code = MCHC) RED CELL DISTRIBUTION WIDTH CV 17.8 % 11.5-14.5 H (test code = RDW) PLATELET COUNT (test code = 254 x10 3/uL 150-400 N PLT) NEUTROPHIL % (test code = NT%) 65.4 % 56.0-77.0 N LYMPHOCYTE % (test code = LY%) 21.0 % 14.0-32.0 N NEUTROPHIL # (test code = NT#) 5.22 x10 3/uL 2.0-7.6 N LYMPHOCYTE # (test code = LY#) 1.68 x10 3/uL 1.0-3.8 N MANUAL DIFF REQUIRED (test code NO = MDIFF) RED CELL DISTRIBUTION WIDTH SD 58.7 fL 37.0-54.0 H (test code = RDW-SD) MEAN PLATELET VOLUME (test code 11.3 fL 7.0-9.0 H = MPV) IMMATURE GRANULOCYTE % (test 0.5 % 0.0-2.0 N code = IG%) MONOCYTE % (test code = MO%) 8.0 % 4.8-9.0 N EOSINOPHIL % (test code = EO%) 4.0 % 0.3-3.7 H BASOPHIL % (test code = BA%) 1.1 % 0.0-2.0 N NUCLEATED RBC % (test code = 0.0 % 0-0 N NRBC%) IMMATURE GRANULOCYTE # (test 0.04 x10 3/uL 0.00-0.03 H code = IG#) MONOCYTE # (test code = MO#) 0.64 x10 3/uL 0.1-0.8 N EOSINOPHIL # (test code = EO#) 0.32 x10 3/uL 0.0-0.2 H BASOPHIL # (test code = BA#) 0.09 x10 3/uL 0.0-0.2 N NUCLEATED RBC # (test code = 0.00 x10 3/uL 0.0-0.1 N NRBC#) GLUCOSE [id number] 17:07:00 Test Item Value Reference Range Interpretation Comments GLUCOSE BEDSIDE (test 93 MG/DL 70-110 N Perfor med by certified code = GLUBED) file conversion operator at [facility] GLUCOSE [id number] 12:46:00 Test Item Value Reference Range Interpretation Comments GLUCOSE BEDSIDE (test 93 MG/DL 70-110 N Perfor med by certified code = GLUBED) file conversion operator at [facility] GLUCOSE [id number] 08:36:00 Test Item Value Reference Range Interpretation Comments GLUCOSE BEDSIDE (test 77 MG/DL 70-110 N Perfor med by certified code = GLUBED) file conversion operator at [facility] COMPREHENSIVE METABOLIC [id number] 05:50:00 Test Item Value Reference Range Interpretation Comments SODIUM (test code = 133 mEq/L 134-147 L NA) POTASSIUM (test code 5.4 mEq/L 3.4-5.0 H = K) CHLORIDE (test code 102 mEq/L 100-108 N = CL) CARBON DIOXIDE (test 23 mEq/l 21-33 N code = CO2) ANION GAP (test code 13 0-20 N = GAP) GLUCOSE (test code = 73 mg/dL 70-110 N GLU) BLOOD UREA NITROGEN 28 mg/dL 7-18 H (test code = BUN) GLOMERULAR 28.4 95-105 L The Glomerular FILTRATION RATE Filtration R ate [...] recommended [facility].The GFR will not calculate i f the sex is unknown or if thepatient's ag e is <18 years. CREATININE (test 2.1 mg/dL 0.6-1.3 H code = CREAT) TOTAL PROTEIN (test 6.0 g/dL 6.4-8.2 L code = PROT) ALBUMIN (test code = 3.40 g/dL 3.4-5.0 N ALB) CALCIUM (test code = 10.0 mg/dL 8.0-10.5 N CA) BILIRUBIN TOTAL 0.50 mg/dL 0.0-1.0 (test code = BILT) SGOT/AST (test code 28 IUnit/L 15-37 N = AST) SGPT/ALT (test code 7 IUnit/L 30-65 L = ALT) ALKALINE PHOSPHATASE 294 IUnit/L 20-125 H TOTAL (test code = ALKP) [id number] 05:50:00 Test Item Value Reference Range Interpretation Comments PHOSPHOROUS (test code = PHOS) 5.8 MG/DL 2.5-4.9 H [id number] 05:50:00 Test Item Value Reference Range Interpretation Comments MAGNESIUM (test code = MAG) 2.30 mg/dL 1.80-2.40 TSH REFLEX TO [id number] 05:50:00 Test Item Value Reference Range Interpretation Comments TSH REFLEX TO FT4 (test code = 8.11 IU/mL 0.42-5.47 H TSHREFLEX) CALCIUM [id number] 05:50:00 Test Item Value Reference Range Interpretation Comments CALCIUM IONIZED (test code = LM) 1.26 MMOL/L 1.09-1.30 N T4 [id number] 05:50:00 Test Item Value Reference Range Interpretation Comments T4 FREE (test code = T4F) 0.8 ng/dL 0.77-1.61 N CBC W/AUTO [id number] 05:10:00 Test Item Value Reference Range Interpretation Comments WHITE BLOOD CELL (test code = 8.7 x10 3/uL 4.5-11.0 WBC) RED BLOOD CELL (test code = 3.32 x10 6/uL 3.54-5.02 L RBC) HEMOGLOBIN (test code = HGB) 9.3 g/dL 11.0-15.0 L HEMATOCRIT (test code = HCT) 29.8 % 33.0-45.0 L MEAN CELL VOLUME (test code = 89.8 fL 81.0-99.0 N MCV) MEAN CELL HGB (test code = MCH) 28.0 pg 27.0-33.0 N MEAN CELL HGB CONCETRATION 31.2 g/dL 33.0-37.0 L (test code = MCHC) RED CELL DISTRIBUTION WIDTH CV 17.8 % 11.5-14.5 H (test code = RDW) RED CELL DISTRIBUTION WIDTH SD 57.8 fL 37.0-54.0 H (test code = RDW-SD) PLATELET COUNT (test code = 243 x10 3/uL 150-400 PLT) MEAN PLATELET VOLUME (test code 11.5 fL 7.0-9.0 H = MPV) NEUTROPHIL % (test code = NT%) 70.1 % 56.0-77.0 N IMMATURE GRANULOCYTE % (test 0.6 % 0.0-2.0 N code = IG%) LYMPHOCYTE % (test code = LY%) 17.6 % 14.0-32.0 N MONOCYTE % (test code = MO%) 6.3 % 4.8-9.0 N EOSINOPHIL % (test code = EO%) 4.1 % 0.3-3.7 H BASOPHIL % (test code = BA%) 1.3 % 0.0-2.0 N NUCLEATED RBC % (test code = 0.0 % 0-0 N NRBC%) NEUTROPHIL # (test code = NT#) 6.12 x10 3/uL 2.0-7.6 N IMMATURE GRANULOCYTE # (test 0.05 x10 3/uL 0.00-0.03 H code = IG#) LYMPHOCYTE # (test code = LY#) 1.54 x10 3/uL 1.0-3.8 N MONOCYTE # (test code = MO#) 0.55 x10 3/uL 0.1-0.8 N EOSINOPHIL # (test code = EO#) 0.36 x10 3/uL 0.0-0.2 H BASOPHIL # (test code = BA#) 0.11 x10 3/uL 0.0-0.2 N NUCLEATED RBC # (test code = 0.00 x10 3/uL 0.0-0.1 N NRBC#) MANUAL DIFF REQUIRED (test code NO = MDIFF) GLUCOSE [id number] 17:19:00 Test Item Value Reference Range Interpretation Comments GLUCOSE BEDSIDE (test 90 MG/DL 70-110 N [facility] med by certified code = GLUBED) file conversion operator at [facility] HEPATIC FUNCTION [id number] 16:26:00 Test Item Value Reference Range Interpretation Comments TOTAL PROTEIN (test code = PROT) 5.4 g/dL 6.4-8.2 L ALBUMIN (test code = ALB) 3.20 g/dL 3.4-5.0 L BILIRUBIN TOTAL (test code = 0.30 mg/dL 0.0-1.0 N BILT) BILIRUBIN DIRECT (test code = 0.20 MG/DL 0.0-0.30 N BILD) BILIRUBIN INDIRECT (test code = 0.10 MG/DL BILIND) SGOT/AST (test code = AST) 25 IUnit/L 15-37 N SGPT/ALT (test code = ALT) < 7 IUnit/L 30-65 L ALKALINE PHOSPHATASE TOTAL (test 253 IUnit/L 20-125 H code = ALKP) [id number] 16:26:00 Test Item Value Reference Range Interpretation Comments LIPASE (test code = LIP) 33 U/L 13-57 N HCG SERUM [id number] 12:44:00 Test Item Value Reference Range Interpretation Comments HCG SERUM QUAL (test code = SERUM NEGATIVE NEGATIVE HCGQL) GLUCOSE [id number] 12:14:00 Test Item Value Reference Range Interpretation Comments GLUCOSE BEDSIDE (test 114 MG/DL 70-110 H [facility] med by certified code = GLUBED) file conversion operator at [facility] BASIC METABOLIC [id number] 11:28:00 Test Item Value Reference Range Interpretation Comments SODIUM (test code = 137 mEq/L 134-147 N NA) POTASSIUM (test code 4.5 mEq/L 3.4-5.0 N = K) CHLORIDE (test code 107 mEq/L 100-108 N = CL) CARBON DIOXIDE (test 21 mEq/l 21-33 N code = CO2) ANION GAP (test code 14 0-20 N = GAP) GLUCOSE (test code = 63 mg/dL 70-110 L GLU) BLOOD UREA NITROGEN 24 mg/dL 7-18 H (test code = BUN) GLOMERULAR 39.3 95-105 L The Glomerular FILTRATION RATE Filtration R ate is a (test code = GFR) calculated parameterbased on serum Creatinine, pat ient age and sex. GFR va luesless than 60 mL/min/ 1.73 square meters a re indicative ofCh ronic Kidney Disease. Values less than 15 mL/min/1.73squa re meters indicate Kidney failure. The calculation forGFR is based on the CKD-EPI (2020) calculat ion. This formulais race indifferent and is the recommended for sudhir for GFRby the [facility] on for Adults.The GFR will not calculate if th e sex is unknown or if thepatient's ag e is <18 years. CREATININE (test 1.6 mg/dL 0.6-1.3 H code = CREAT) CALCIUM (test code = 8.7 mg/dL 8.0-10.5 N CA) [id number] 11:28:00 Test Item Value Reference Range Interpretation Comments PHOSPHOROUS (test code = PHOS) 5.1 MG/DL 2.5-4.9 H [id number] 11:28:00 Test Item Value Reference Range Interpretation Comments MAGNESIUM (test code = MAG) 1.57 mg/dL 1.80-2.40 L CALCIUM [id number] 11:28:00 Test Item Value Reference Range Interpretation Comments CALCIUM IONIZED (test code = LM) 1.19 MMOL/L 1.09-1.30 N GLUCOSE [id number] 09:54:00 Test Item Value Reference Range Interpretation Comments GLUCOSE BEDSIDE (test 279 MG/DL 70-110 H [facility] by certified code = GLUBED) file conversion operator at [facility] CBC W/AUTO [id number] 09:10:00 Test Item Value Reference Range Interpretation Comments WHITE BLOOD CELL (test code = 6.2 x10 3/uL 4.5-11.0 N WBC) RED BLOOD CELL (test code = 3.16 x10 6/uL 3.54-5.02 L RBC) HEMOGLOBIN (test code = HGB) 9.0 g/dL 11.0-15.0 L HEMATOCRIT (test code = HCT) 27.6 % 33.0-45.0 L MEAN CELL VOLUME (test code = 87.3 fL 81.0-99.0 N MCV) MEAN CELL HGB (test code = MCH) 28.5 pg 27.0-33.0 N MEAN CELL HGB CONCETRATION 32.6 g/dL 33.0-37.0 L (test code = MCHC) RED CELL DISTRIBUTION WIDTH CV 17.5 % 11.5-14.5 H (test code = RDW) RED CELL DISTRIBUTION WIDTH SD 54.9 fL 37.0-54.0 H (test code = RDW-SD) PLATELET COUNT (test code = 149 x10 3/uL 150-400 L PLT) MEAN PLATELET VOLUME (test code 12.2 fL 7.0-9.0 H = MPV) NEUTROPHIL % (test code = NT%) 71.8 % 56.0-77.0 N IMMATURE GRANULOCYTE % (test 0.5 % 0.0-2.0 N code = IG%) LYMPHOCYTE % (test code = LY%) 18.1 % 14.0-32.0 N MONOCYTE % (test code = MO%) 6.5 % 4.8-9.0 N EOSINOPHIL % (test code = EO%) 2.1 % 0.3-3.7 N BASOPHIL % (test code = BA%) 1.0 % 0.0-2.0 N NUCLEATED RBC % (test code = 0.0 % 0-0 N NRBC%) NEUTROPHIL # (test code = NT#) 4.46 x10 3/uL 2.0-7.6 N IMMATURE GRANULOCYTE # (test 0.03 x10 3/uL 0.00-0.03 N code = IG#) LYMPHOCYTE # (test code = LY#) 1.12 x10 3/uL 1.0-3.8 N MONOCYTE # (test code = MO#) 0.40 x10 3/uL 0.1-0.8 N EOSINOPHIL # (test code = EO#) 0.13 x10 3/uL 0.0-0.2 N BASOPHIL # (test code = BA#) 0.06 x10 3/uL 0.0-0.2 N NUCLEATED RBC # (test code = 0.00 x10 3/uL 0.0-0.1 N NRBC#) MANUAL DIFF REQUIRED (test code NO = IFF) - CT ABD PELVIS W/O [id number] 00:00:00 [facility] 1975 Sex: F Name: LIZBET RAHMAN [facility] : 1975 Age/S: 47 / F [address] [place] [address] Unit #: [id number] Loc: [place] [address] Phys: Monique Bales MD Acct: [id number] Dis Date: Status: ADM IN PHONE #: [phone] Exam Date: 03/18/2023 1626 FAX #: [phone] Reason: ABD PAIN EXAMS: CPT CODE: [id number] CT ABD PELVIS W/O CONT 16133 PROCEDURE INFORMATION: Exam: CT Abdomen And Pelvis Without Contrast Exam date and time: 03/18/2023 4:26 PM Age: 47 years old Clinical indication: Other: Abd pain TECHNIQUE: Imaging protocol: Computed tomography of the abdomen and pelvis without contrast. Radiation optimization: All CT scans at this facility use at least one of these dose optimization techniques: automated exposure control; mA and/or kV adjustment per patient size (includes targeted exams where dose is matched to clinical indication); or iterative reconstruction. REPORTING DATA: Count of CT and Cardiac NM exams in prior 12 months: This patient has received [address] and 0 known cardiac nuclear medicine studies in the 12 months prior to the current study. COMPARISON: CT ABD PELVIS W/CONT 11/19/2022 6:02 PM FINDINGS: Liver: Hepatomegaly is noted. Gallbladder and bile ducts: Changes of cholecystectomy are seen. Pancreas: Normal. No ductal dilation. Spleen: Splenomegaly is noted. Adrenal glands: Normal. No mass. Kidneys and ureters: Normal. No hydronephrosis. Stomach and bowel: Postoperative changes of left hemicolectomy and right lower quadrant colostomy formation are seen with trace fluid and areas of stranding in the right lower quadrant and lower abdomen. No bowel obstruction. Appendix: No e vidence of appendicitis. Intraperitoneal space: No intraperitoneal free air is seen. Vasculature: Unremarkable. No abdominal aortic aneurysm. Lymph nodes: Unremarkable. No enlarged lymph nodes. Urinarybladder: Capone catheter in the urinary bladder is present. Reproductive: Unremarkable as visualized. Bones/joints: Unremarkable. No acute fracture. Soft tissues: Unremarkable. IMPRESSION: 1. Changes ofprior left hemicolectomy and right lower quadrant colostomy formation. 2. Trace fluid with inflammation in the right lower quadrant and lower abdomen. This may represent sequela of recent PAGE 1 Signed Report (CONTINUED) Name: LIZBET RAHMAN [facility] : 1975 Age/S: 47 / F [address] [place] [address] Unit #: [id number] Loc: [place] [address] Phys: Monique Bales MD Acct: [id number] Dis Date: Status: ADM IN PHONE #: [phone] Exam Date: 03/18/2023 1626 FAX #: [phone] Reason: ABD PAIN EXAMS: CPT CODE: [id number] CT ABD PELVIS W/O CONT 99943 (Continued) postoperative change. Early abscess formation cannot be entirely excluded. at 2003 Reported and signed by: Triston Perez M.D. CC: Yesika Luo MD; Monique Bales MD Tech nologist:Sotero Gracia, RT(R)(CT) CTDI: DLP: Trnscb Date/Time: 03/18/2023 (2002) MichelleSBL Orig Print D/T: S: 03/18/2023 (2003) PAGE 2 Signed Report GLUCOSE [id number] 16:44:00 Test Item Value Reference Range Interpretation Comments GLUCOSE BEDSIDE (test 79 MG/DL 70-110 N Perfor med by certified code = GLUBED) file conversion operator at [facility] BASIC METABOLIC [id number] 07:30:00 Test Item Value Reference Range Interpretation Comments SODIUM (test code = 136 mEq/L 134-147 N NA) POTASSIUM (test code 4.4 mEq/L 3.4-5.0 N = K) CHLORIDE (test code 104 mEq/L 100-108 N = CL) CARBON DIOXIDE (test 23 mEq/l 21-33 N code = CO2) ANION GAP (test code 13 0-20 N = GAP) GLUCOSE (test code = 78 mg/dL 70-110 N GLU) BLOOD UREA NITROGEN 20 mg/dL 7-18 H (test code = BUN) GLOMERULAR 36.5 95-105 L The Glomerular FILTRATION RATE Filtration R ate is a (test code = GFR) calculated parameterbased on serum Creatinine, pat ient age and sex. GFR va luesless than 60 mL/min/ 1.73 square meters a re indicative ofCh ronic Kidney Disease. Values less than 15 mL/min/1.73squa re meters indicate Kidney failure. The calculation forGFR is based on the CKD-EPI (2020) calculat ion. This formulais race indifferent and is the recommended for sudhir for GFRby the [facility] Kidney Foundati on for Adults.The GFR will not calculate if th e sex is unknown or if thepatient's ag e is <18 years. CREATININE (test 1.7 mg/dL 0.6-1.3 H code = CREAT) CALCIUM (test code = 9.6 mg/dL 8.0-10.5 N CA) BASIC METABOLIC [id number] 06:11:00 Test Item Value Reference Range Interpretation Comments SODIUM (test code = 136 mEq/L 134-147 N NA) POTASSIUM (test code 5.1 mEq/L 3.4-5.0 H SPECIME N +1 = K) HEMOLYZED.Resul ts known to be adversely affected by hemolysis ar e: Potassium Magne sium LDH Phosphorus CHLORIDE (test code 103 mEq/L 100-108 N = CL) CARBON DIOXIDE (test 24 mEq/l 21-33 N code = CO2) ANION GAP (test code 14 0-20 N = GAP) GLUCOSE (test code = 77 mg/dL 70-110 N GLU) BLOOD UREA NITROGEN 25 mg/dL 7-18 H (test code = BUN) GLOMERULAR 36.5 95-105 L The Glomerular FILTRATION RATE Filtration R ate is a (test code = GFR) calculated parameterbased on serum Creatinine, pat ient age and sex. GFR va luesless than 60 mL/min/ 1.73 square meters a re indicative ofCh ronic Kidney Disease. Values less than 15 mL/min/1.73squa re meters indicate Kidney failure. The calculation forGFR is based on the CKD-EPI (2020) calculat ion. This formulais race indifferent and is the recommended for sudhir for GFRby the [facility] Foundati on for Adults.The GFR will not calculate if th e sex is unknown or if thepatient's ag e is <18 years. CREATININE (test 1.7 mg/dL 0.6-1.3 H code = CREAT) CALCIUM (test code = 9.3 mg/dL 8.0-10.5 N CA) [id number] 06:11:00 Test Item Value Reference Range Interpretation Comments PHOSPHOROUS (test code = PHOS) 5.5 MG/DL 2.5-4.9 H [id number] 06:11:00 Test Item Value Reference Range Interpretation Comments MAGNESIUM (test code = MAG) 1.79 mg/dL 1.80-2.40 L CALCIUM [id number] 06:11:00 Test Item Value Reference Range Interpretation Comments CALCIUM IONIZED (test code = LM) 1.18 MMOL/L 1.09-1.30 N CORTISOL [id number] 06:11:00 Test Item Value Reference Range Interpretation Comments CORTISOL AM (test 22.86 ug/dL Reference Interval: code = CORTAM) 2mo-13yrs: 2. 4-22.9 ug/dL 14-15yrs( Male): 2.5-22.9 ug/dL 14-15yrs(Female ): 2.5-28.6 ug/dL 16-18yrs(M/F): 2.4-28.6 ug/dLAdults(M/F ) AM: 4.3-22.4 ug/dLAdults(M/F ) PM: 3.1-16.7 ug/dL CBC W/AUTO [id number] 05:53:00 Test Item Value Reference Range Interpretation Comments WHITE BLOOD CELL (test code = 7.1 x10 3/uL 4.5-11.0 N WBC) RED BLOOD CELL (test code = 3.04 x10 6/uL 3.54-5.02 L RBC) HEMOGLOBIN (test code = HGB) 8.8 g/dL 11.0-15.0 L HEMATOCRIT (test code = HCT) 26.4 % 33.0-45.0 L MEAN CELL VOLUME (test code = 86.8 fL 81.0-99.0 N MCV) MEAN CELL HGB (test code = MCH) 28.9 pg 27.0-33.0 N MEAN CELL HGB CONCETRATION 33.3 g/dL 33.0-37.0 N (test code = MCHC) RED CELL DISTRIBUTION WIDTH CV 17.3 % 11.5-14.5 H (test code = RDW) RED CELL DISTRIBUTION WIDTH SD 55.0 fL 37.0-54.0 H (test code = RDW-SD) PLATELET COUNT (test code = 174 x10 3/uL 150-400 N PLT) MEAN PLATELET VOLUME (test code 12.1 fL 7.0-9.0 H = MPV) NEUTROPHIL % (test code = NT%) 74.6 % 56.0-77.0 N IMMATURE GRANULOCYTE % (test 0.7 % 0.0-2.0 N code = IG%) LYMPHOCYTE % (test code = LY%) 14.4 % 14.0-32.0 N MONOCYTE % (test code = MO%) 6.4 % 4.8-9.0 N EOSINOPHIL % (test code = EO%) 2.5 % 0.3-3.7 N BASOPHIL % (test code = BA%) 1.4 % 0.0-2.0 N NUCLEATED RBC % (test code = 0.0 % 0-0 N NRBC%) NEUTROPHIL # (test code = NT#) 5.32 x10 3/uL 2.0-7.6 N IMMATURE GRANULOCYTE # (test 0.05 x10 3/uL 0.00-0.03 H code = IG#) LYMPHOCYTE # (test code = LY#) 1.03 x10 3/uL 1.0-3.8 N MONOCYTE # (test code = MO#) 0.46 x10 3/uL 0.1-0.8 N EOSINOPHIL # (test code = EO#) 0.18 x10 3/uL 0.0-0.2 N BASOPHIL # (test code = BA#) 0.10 x10 3/uL 0.0-0.2 N NUCLEATED RBC # (test code = 0.00 x10 3/uL 0.0-0.1 N NRBC#) MANUAL DIFF REQUIRED (test code NO = MDIFF) GLUCOSE [id number] 05:21:00 Test Item Value Reference Range Interpretation Comments GLUCOSE BEDSIDE (test 72 MG/DL 70-110 N Perfor med by certified code = GLUBED) file conversion operator at [facility] GLUCOSE [id number] 18:46:00 Test Item Value Reference Range Interpretation Comments GLUCOSE BEDSIDE (test 106 MG/DL 70-110 N Perfor med by certified code = GLUBED) file conversion operator at [facility] [id number] 14:11:00 Test Item Value Reference Range Interpretation Comments HAPTOGLOBIN (test code 183 mg/dL 42-296 Perfo rmed At: DA = HAPT) [facility] [address] [place], [place] [id number] h CAROLYN HOLLINS Ph:[phone] GLUCOSE [id number] 12:21:00 Test Item Value Reference Range Interpretation Comments GLUCOSE BEDSIDE (test 97 MG/DL 70-110 N Perfor med by certified code = GLUBED) file conversion operator at [facility] GLUCOSE [id number] 07:11:00 Test Item Value Reference Range Interpretation Comments GLUCOSE BEDSIDE (test 87 MG/DL 70-110 N Perfor med by certified code = GLUBED) file conversion operator at [facility] GLUCOSE [id number] 06:20:00 Test Item Value Reference Range Interpretation Comments GLUCOSE BEDSIDE (test 74 MG/DL 70-110 N Perfor med by certified code = GLUBED) file conversion operator at [facility] GLUCOSE [id number] 05:46:00 Test Item Value Reference Range Interpretation Comments GLUCOSE BEDSIDE (test 68 MG/DL 70-110 L [facility] med by certified code = GLUBED) file conversion operator at [facility] BASIC METABOLIC [id number] 05:08:00 Test Item Value Reference Range Interpretation Comments SODIUM (test code = 135 mEq/L 134-147 N NA) POTASSIUM (test code 3.9 mEq/L 3.4-5.0 N = K) CHLORIDE (test code 101 mEq/L 100-108 N = CL) CARBON DIOXIDE (test 25 mEq/l 21-33 N code = CO2) ANION GAP (test code 13 0-20 N = GAP) GLUCOSE (test code = 65 mg/dL 70-110 L GLU) BLOOD UREA NITROGEN 21 mg/dL 7-18 H (test code = BUN) GLOMERULAR 36.5 95-105 L The Glomerular FILTRATION RATE Filtration R ate is a (test code = GFR) calculated parameterbased on serum Creatinine, pat ient age and sex. GFR va luesless than 60 mL/min/ 1.73 square meters a re indicative ofCh ronic Kidney Disease. Values less than 15 mL/min/1.73squa re meters indicate Kidney failure. The calculation forGFR is based on the CKD-EPI (2020) calculat ion. This formulais race indifferent and is the recommended for sudhir for GFRby the [facility] Kidney Foundati on for Adults.The GFR will not calculate if th e sex is unknown or if thepatient's ag e is <18 years. CREATININE (test 1.7 mg/dL 0.6-1.3 H code = CREAT) CALCIUM (test code = 9.5 mg/dL 8.0-10.5 N CA) [id number] 05:08:00 Test Item Value Reference Range Interpretation Comments PHOSPHOROUS (test code = PHOS) 4.9 MG/DL 2.5-4.9 N [id number] 05:08:00 Test Item Value Reference Range Interpretation Comments MAGNESIUM (test code = MAG) 1.82 mg/dL 1.80-2.40 CBC W/AUTO [id number] 04:50:00 Test Item Value Reference Range Interpretation Comments WHITE BLOOD CELL (test code = 8.8 x10 3/uL 4.5-11.0 N WBC) RED BLOOD CELL (test code = 3.17 x10 6/uL 3.54-5.02 L RBC) HEMOGLOBIN (test code = HGB) 9.1 g/dL 11.0-15.0 L HEMATOCRIT (test code = HCT) 27.0 % 33.0-45.0 L MEAN CELL VOLUME (test code = 85.2 fL 81.0-99.0 N MCV) MEAN CELL HGB (test code = MCH) 28.7 pg 27.0-33.0 N MEAN CELL HGB CONCETRATION 33.7 g/dL 33.0-37.0 N (test code = MCHC) RED CELL DISTRIBUTION WIDTH CV 16.7 % 11.5-14.5 H (test code = RDW) RED CELL DISTRIBUTION WIDTH SD 51.8 fL 37.0-54.0 N (test code = RDW-SD) PLATELET COUNT (test code = 147 x10 3/uL 150-400 L PLT) MEAN PLATELET VOLUME (test code 12.0 fL 7.0-9.0 H = MPV) NEUTROPHIL % (test code = NT%) 76.4 % 56.0-77.0 N IMMATURE GRANULOCYTE % (test 0.6 % 0.0-2.0 N code = IG%) LYMPHOCYTE % (test code = LY%) 14.3 % 14.0-32.0 N MONOCYTE % (test code = MO%) 5.1 % 4.8-9.0 N EOSINOPHIL % (test code = EO%) 2.5 % 0.3-3.7 N BASOPHIL % (test code = BA%) 1.1 % 0.0-2.0 N NUCLEATED RBC % (test code = 0.0 % 0-0 N NRBC%) NEUTROPHIL # (test code = NT#) 6.70 x10 3/uL 2.0-7.6 N IMMATURE GRANULOCYTE # (test 0.05 x10 3/uL 0.00-0.03 H code = IG#) LYMPHOCYTE # (test code = LY#) 1.25 x10 3/uL 1.0-3.8 N MONOCYTE # (test code = MO#) 0.45 x10 3/uL 0.1-0.8 N EOSINOPHIL # (test code = EO#) 0.22 x10 3/uL 0.0-0.2 H BASOPHIL # (test code = BA#) 0.10 x10 3/uL 0.0-0.2 N NUCLEATED RBC # (test code = 0.00 x10 3/uL 0.0-0.1 N NRBC#) MANUAL DIFF REQUIRED (test code NO = MDIFF) GLUCOSE [id number] 23:06:00 Test Item Value Reference Range Interpretation Comments GLUCOSE BEDSIDE (test 92 MG/DL 70-110 N Perfor med by certified code = GLUBED) file conversion operator at [facility] GLUCOSE [id number] 23:06:00 Test Item Value Reference Range Interpretation Comments GLUCOSE BEDSIDE (test 69 MG/DL 70-110 L Perfor med by certified code = GLUBED) file conversion operator at [facility] GLUCOSE [id number] 16:58:00 Test Item Value Reference Range Interpretation Comments GLUCOSE BEDSIDE (test 85 MG/DL 70-110 N Perfor med by certified code = GLUBED) file conversion operator at [facility] HEPATIC FUNCTION [id number] 13:12:00 Test Item Value Reference Range Interpretation Comments TOTAL PROTEIN (test code = PROT) 5.6 g/dL 6.4-8.2 L ALBUMIN (test code = ALB) 2.90 g/dL 3.4-5.0 L BILIRUBIN TOTAL (test code = 0.30 mg/dL 0.0-1.0 N BILT) BILIRUBIN DIRECT (test code = 0.20 MG/DL 0.0-0.30 N BILD) BILIRUBIN INDIRECT (test code = 0.10 MG/DL BILIND) SGOT/AST (test code = AST) 20 IUnit/L 15-37 N SGPT/ALT (test code = ALT) 15 IUnit/L 30-65 L ALKALINE PHOSPHATASE TOTAL (test 336 IUnit/L 20-125 H code = ALKP) IMMUNOELECTROPHORESIS [id number] 13:12:00 Test Item Value Reference Range Interpretation Comments IMMUNOGLOBULIN A (test <5 mg/dL 87-352 A Resul t confirmed on code = YUE) concentration. IMMUNOGLOBULIN G (test 645 mg/dL 586-1602 code = IMMG) IMMUNOGLOBULIN M (test 101 mg/dL 26-217 Perfo rmed At: DA code = IMMM) [facility] [address] [place], [place] [id number] evie LEON MD Ph:[phone] rformed At: [facility] [address] [id number] Kyle L MD Ph:[phone] IMMUNOFIXATION SERUM See_Comment A Immunof ixation shows (test code = IMMFIXS) IgG mo noclonal protein with lambdaligh t chain specificity.Imm unofixa tion shows IgG monoclonal prot ein with lambdaligh t chain specificity. [Automated mess age] The system Step-In generated this result transmitted ref erence range: (). The reference range was not used to int erpret this result as normal/abnormal . LACTIC DEHYDROGENASE(LDH)[id number] 13:12:00 Test Item Value Reference Range Interpretation Comments LACTIC DEHYDROGENASE(LDH) (test 236 IUnits/L 84-246 N code = LDH) IMMUNOGLOBULINS A,G [id number] 13:12:00 Test Item Value Reference Range Interpretation Comments IMMUNOGLOBULIN G (test code = IGG) IMMUNOGLOBULIN M (test code = IGM) IMMUNOGLOBULIN A (test code = IGA) GLUCOSE [id number] 12:10:00 Test Item Value Reference Range Interpretation Comments GLUCOSE BEDSIDE (test 88 MG/DL 70-110 N Perfor med by certified code = GLUBED) file conversion operator at [facility] COLD [id number] 09:12:00 Test Item Value Reference Range Interpretation Comments COLD AGGLUTININS (test Negative See_Comment Perfo rmed At: code = COLD) [facility] [address] [id number] katlin Fleming MD Ph:[phone] [Automated mess age] The system Step-In generated this result transmitted ref erence range: Neg <1:3 2. The reference range was not used to int erpret this result as normal/abnormal . GLUCOSE [id number] 09:00:00 Test Item Value Reference Range Interpretation Comments GLUCOSE BEDSIDE (test 78 MG/DL 70-110 N Perfor med by certified code = GLUBED) file conversion operator at [facility] AB HEPATITIS B [id number] 06:11:00 Test Item Value Reference Range Interpretation Comments AB HEPATITIS B 48.5 mIU/mL See_Comment Status of Im munity SURFACE (test code = Anti-HB s Level HBSAB) --- I nconsis tent with Immun ity 0.0 - 9.9Consistent with Immunity >9.9Pe rformed At: [facility] [id number] [place], [place] [id number] Kvng Fleming MD Ph:[phone] [Automated mess age] The system Step-In generated this result transmitted ref erence range: Immunity >9.9. The reference r stefanie was not used to interpret this result as normal/abnor mal. CBC W/AUTO [id number] 05:07:00 Test Item Value Reference Range Interpretation Comments WHITE BLOOD CELL (test code = 9.0 x10 3/uL 4.5-11.0 WBC) RED BLOOD CELL (test code = 3.46 x10 6/uL 3.54-5.02 L RBC) HEMOGLOBIN (test code = HGB) 9.8 g/dL 11.0-15.0 L HEMATOCRIT (test code = HCT) 29.2 % 33.0-45.0 L MEAN CELL VOLUME (test code = 84.4 fL 81.0-99.0 N MCV) MEAN CELL HGB (test code = MCH) 28.3 pg 27.0-33.0 N MEAN CELL HGB CONCETRATION 33.6 g/dL 33.0-37.0 N (test code = MCHC) RED CELL DISTRIBUTION WIDTH CV 16.4 % 11.5-14.5 H (test code = RDW) RED CELL DISTRIBUTION WIDTH SD 50.0 fL 37.0-54.0 N (test code = RDW-SD) PLATELET COUNT (test code = 183 x10 3/uL 150-400 N PLT) MEAN PLATELET VOLUME (test code 11.6 fL 7.0-9.0 H = MPV) NEUTROPHIL % (test code = NT%) 67.6 % 56.0-77.0 N IMMATURE GRANULOCYTE % (test 0.7 % 0.0-2.0 N code = IG%) LYMPHOCYTE % (test code = LY%) 19.6 % 14.0-32.0 N MONOCYTE % (test code = MO%) 6.8 % 4.8-9.0 N EOSINOPHIL % (test code = EO%) 3.7 % 0.3-3.7 N BASOPHIL % (test code = BA%) 1.6 % 0.0-2.0 N NUCLEATED RBC % (test code = 0.0 % 0-0 N NRBC%) NEUTROPHIL # (test code = NT#) 6.06 x10 3/uL 2.0-7.6 N IMMATURE GRANULOCYTE # (test 0.06 x10 3/uL 0.00-0.03 H code = IG#) LYMPHOCYTE # (test code = LY#) 1.75 x10 3/uL 1.0-3.8 N MONOCYTE # (test code = MO#) 0.61 x10 3/uL 0.1-0.8 N EOSINOPHIL # (test code = EO#) 0.33 x10 3/uL 0.0-0.2 H BASOPHIL # (test code = BA#) 0.14 x10 3/uL 0.0-0.2 N NUCLEATED RBC # (test code = 0.00 x10 3/uL 0.0-0.1 N NRBC#) MANUAL DIFF REQUIRED (test code NO = MDIFF) BASIC METABOLIC [id number] 04:55:00 Test Item Value Reference Range Interpretation Comments SODIUM (test code = 134 mEq/L 134-147 N NA) POTASSIUM (test code 4.0 mEq/L 3.4-5.0 N = K) CHLORIDE (test code 100 mEq/L 100-108 N = CL) CARBON DIOXIDE (test 26 mEq/l 21-33 N code = CO2) ANION GAP (test code 12 0-20 N = GAP) GLUCOSE (test code = 75 mg/dL 70-110 N GLU) BLOOD UREA NITROGEN 18 mg/dL 7-18 N (test code = BUN) GLOMERULAR 30.1 95-105 L The Glomerular FILTRATION RATE Filtration R ate is a (test code = GFR) calculated parameterbased on serum Creatinine, pat ient age and sex. GFR va luesless than 60 mL/min/ 1.73 square meters a re indicative ofCh ronic Kidney Disease. Values less than 15 mL/min/1.73squa re meters indicate Kidney failure. The calculation forGFR is based on the CKD-EPI (2020) calculat ion. This formulais race indifferent and is the recommended for sudhir for G[facility]by the [facility] for Ad[facility].The GFR will not calculate if th e sex is unknown or if thepatient's ag e is <18 years. CREATININE (test 2.0 mg/dL 0.6-1.3 H code = CREAT) CALCIUM (test code = 9.1 mg/dL 8.0-10.5 N CA) GLUCOSE [id number] 22:37:00 Test Item Value Reference Range Interpretation Comments GLUCOSE BEDSIDE (test 93 MG/DL 70-110 N Perfor med by certified code = GLUBED) file conversion operator at [facility] GLUCOSE [id number] 16:31:00 Test Item Value Reference Range Interpretation Comments GLUCOSE BEDSIDE (test 114 MG/DL 70-110 H Perfor med by certified code = GLUBED) file conversion operator at [facility] GLUCOSE [id number] 08:02:00 Test Item Value Reference Range Interpretation Comments GLUCOSE BEDSIDE (test 90 MG/DL 70-110 N Perfor med by certified code = GLUBED) file conversion operator at [facility] BASIC METABOLIC [id number] 06:29:00 Test Item Value Reference Range Interpretation Comments SODIUM (test code = 132 mEq/L 134-147 L NA) POTASSIUM (test code 3.8 mEq/L 3.4-5.0 N = K) CHLORIDE (test code 98 mEq/L 100-108 L = CL) CARBON DIOXIDE (test 29 mEq/l 21-33 N code = CO2) ANION GAP (test code 9 0-20 N = GAP) GLUCOSE (test code = 73 mg/dL 70-110 GLU) BLOOD UREA NITROGEN 18 mg/dL 7-18 N (test code = BUN) GLOMERULAR 30.1 95-105 L The Glomerular FILTRATION RATE Filtration R ate is a (test code = GFR) calculated parameterbased on serum Creatinine, pat ient age and sex. GFR va luesless than 60 mL/min/ 1.73 square meters a re indicative ofCh ronic Kidney Disease. Values less than 15 mL/min/1.73squa re meters indicate Kidney failure. The calculation forGFR is based on the CKD-EPI (2020) calculat ion. This formulais race indifferent and is the recommended for sudhir for GFRby the [facility] Kidney Foundati on for Adults.The GFR will not calculate if th e sex is unknown or if thepatient's ag e is <18 years. CREATININE (test 2.0 mg/dL 0.6-1.3 H code = CREAT) CALCIUM (test code = 8.9 mg/dL 8.0-10.5 N CA) [id number] 06:29:00 Test Item Value Reference Range Interpretation Comments PHOSPHOROUS (test code = PHOS) 4.1 MG/DL 2.5-4.9 N [id number] 06:29:00 Test Item Value Reference Range Interpretation Comments MAGNESIUM (test code = MAG) 2.28 mg/dL 1.80-2.40 N [id number] 06:29:00 Test Item Value Reference Range Interpretation Comments PREALBUMIN (test code = PREALB) 22.2 mg/dL 16.0-40.0 N CBC W/AUTO [id number] 06:27:00 Test Item Value Reference Range Interpretation Comments WHITE BLOOD CELL (test code = 5.4 x10 3/uL 4.5-11.0 WBC) RED BLOOD CELL (test code = 2.74 x10 6/uL 3.54-5.02 L RBC) HEMOGLOBIN (test code = HGB) 7.7 g/dL 11.0-15.0 L HEMATOCRIT (test code = HCT) 23.2 % 33.0-45.0 L MEAN CELL VOLUME (test code = 84.7 fL 81.0-99.0 N MCV) MEAN CELL HGB (test code = MCH) 28.1 pg 27.0-33.0 N MEAN CELL HGB CONCETRATION 33.2 g/dL 33.0-37.0 N (test code = MCHC) RED CELL DISTRIBUTION WIDTH CV 17.0 % 11.5-14.5 H (test code = RDW) RED CELL DISTRIBUTION WIDTH SD 51.9 fL 37.0-54.0 N (test code = RDW-SD) PLATELET COUNT (test code = 134 x10 3/uL 150-400 L PLT) MEAN PLATELET VOLUME (test code 11.5 fL 7.0-9.0 H = MPV) NEUTROPHIL % (test code = NT%) 64.9 % 56.0-77.0 N IMMATURE GRANULOCYTE % (test 0.7 % 0.0-2.0 N code = IG%) LYMPHOCYTE % (test code = LY%) 24.2 % 14.0-32.0 N MONOCYTE % (test code = MO%) 6.1 % 4.8-9.0 N EOSINOPHIL % (test code = EO%) 2.8 % 0.3-3.7 N BASOPHIL % (test code = BA%) 1.3 % 0.0-2.0 N NUCLEATED RBC % (test code = 0.0 % 0-0 N NRBC%) NEUTROPHIL # (test code = NT#) 3.49 x10 3/uL 2.0-7.6 N IMMATURE GRANULOCYTE # (test 0.04 x10 3/uL 0.00-0.03 H code = IG#) LYMPHOCYTE # (test code = LY#) 1.30 x10 3/uL 1.0-3.8 N MONOCYTE # (test code = MO#) 0.33 x10 3/uL 0.1-0.8 N EOSINOPHIL # (test code = EO#) 0.15 x10 3/uL 0.0-0.2 N BASOPHIL # (test code = BA#) 0.07 x10 3/uL 0.0-0.2 N NUCLEATED RBC # (test code = 0.00 x10 3/uL 0.0-0.1 N NRBC#) MANUAL DIFF REQUIRED (test code NO = MDIFF) GLUCOSE [id number] 21:17:00 Test Item Value Reference Range Interpretation Comments GLUCOSE BEDSIDE (test 100 MG/DL 70-110 N Perfor med by certified code = GLUBED) file conversion operator at [facility] GLUCOSE [id number] 17:04:00 Test Item Value Reference Range Interpretation Comments GLUCOSE BEDSIDE (test 121 MG/DL 70-110 H Perfor med by certified code = GLUBED) file conversion operator at [facility] GLUCOSE [id number] 12:39:00 Test Item Value Reference Range Interpretation Comments GLUCOSE BEDSIDE (test 105 MG/DL 70-110 N Perfor med by certified code = GLUBED) file conversion operator at [facility] [id number] 10:47:00 Test Item Value Reference Range Interpretation Comments VANCOMYCIN (test code = VANCO) 22.1 mcg/mL GLUCOSE [id number] 08:05:00 Test Item Value Reference Range Interpretation Comments GLUCOSE BEDSIDE (test 150 MG/DL 70-110 H [facility] med by certified code = GLUBED) file conversion operator at [facility] BASIC METABOLIC [id number] 06:10:00 Test Item Value Reference Range Interpretation Comments SODIUM (test code = 134 mEq/L 134-147 N NA) POTASSIUM (test code 3.4 mEq/L 3.4-5.0 N = K) CHLORIDE (test code 97 mEq/L 100-108 L = CL) CARBON DIOXIDE (test 29 mEq/l 21-33 N code = CO2) ANION GAP (test code 12 0-20 N = GAP) GLUCOSE (test code = 109 mg/dL 70-110 N GLU) BLOOD UREA NITROGEN 16 mg/dL 7-18 N (test code = BUN) GLOMERULAR 30.1 95-105 L The Glomerular FILTRATION RATE Filtration R ate is a (test code = GFR) calculated parameterbased on serum Creatinine, pat ient age and sex. GFR va luesless than 60 mL/min/ 1.73 square meters a re indicative ofCh ronic Kidney Disease. Values less than 15 mL/min/1.73squa re meters indicate Kidney failure. The calculation forGFR is based on the CKD-EPI (2020) calculat ion. This formulais race indifferent and is the recommended for sudhir for GFRby the [facility] Kidney Foundati on for Adults.The GFR will not calculate if th e sex is unknown or if thepatient's ag e is <18 years. CREATININE (test 2.0 mg/dL 0.6-1.3 H code = CREAT) CALCIUM (test code = 8.5 mg/dL 8.0-10.5 N CA) [id number] 06:10:00 Test Item Value Reference Range Interpretation Comments PHOSPHOROUS (test code = PHOS) 4.0 MG/DL 2.5-4.9 N [id number] 06:10:00 Test Item Value Reference Range Interpretation Comments MAGNESIUM (test code = MAG) 2.46 mg/dL 1.80-2.40 H CBC W/AUTO [id number] 05:51:00 Test Item Value Reference Range Interpretation Comments WHITE BLOOD CELL (test code = 9.8 x10 3/uL 4.5-11.0 N WBC) RED BLOOD CELL (test code = 2.73 x10 6/uL 3.54-5.02 L RBC) HEMOGLOBIN (test code = HGB) 7.5 g/dL 11.0-15.0 L HEMATOCRIT (test code = HCT) 23.1 % 33.0-45.0 L MEAN CELL VOLUME (test code = 84.6 fL 81.0-99.0 MCV) MEAN CELL HGB (test code = MCH) 27.5 pg 27.0-33.0 N MEAN CELL HGB CONCETRATION 32.5 g/dL 33.0-37.0 L (test code = MCHC) RED CELL DISTRIBUTION WIDTH CV 17.1 % 11.5-14.5 H (test code = RDW) RED CELL DISTRIBUTION WIDTH SD 52.2 fL 37.0-54.0 N (test code = RDW-SD) PLATELET COUNT (test code = 174 x10 3/uL 150-400 N PLT) MEAN PLATELET VOLUME (test code 11.2 fL 7.0-9.0 H = MPV) NEUTROPHIL % (test code = NT%) 73.4 % 56.0-77.0 N IMMATURE GRANULOCYTE % (test 0.9 % 0.0-2.0 N code = IG%) LYMPHOCYTE % (test code = LY%) 17.5 % 14.0-32.0 N MONOCYTE % (test code = MO%) 5.6 % 4.8-9.0 N EOSINOPHIL % (test code = EO%) 1.6 % 0.3-3.7 N BASOPHIL % (test code = BA%) 1.0 % 0.0-2.0 N NUCLEATED RBC % (test code = 0.0 % 0-0 N NRBC%) NEUTROPHIL # (test code = NT#) 7.18 x10 3/uL 2.0-7.6 N IMMATURE GRANULOCYTE # (test 0.09 x10 3/uL 0.00-0.03 H code = IG#) LYMPHOCYTE # (test code = LY#) 1.71 x10 3/uL 1.0-3.8 N MONOCYTE # (test code = MO#) 0.55 x10 3/uL 0.1-0.8 N EOSINOPHIL # (test code = EO#) 0.16 x10 3/uL 0.0-0.2 N BASOPHIL # (test code = BA#) 0.10 x10 3/uL 0.0-0.2 N NUCLEATED RBC # (test code = 0.00 x10 3/uL 0.0-0.1 N NRBC#) MANUAL DIFF REQUIRED (test code NO = MDIFF) - RETRO [id number] 00:00:00 [facility] 1975 Sex: F Name: LIZBET RAHMAN [facility] : 1975 Age/S: 47 / F [address] [place] [address] Unit #: [id number] Loc: [place] [address] Phys: Lauro Mead Acct: [id number] Dis Date: Status: ADM IN PHONE #: [phone] Exam Date: 03/12/2023 1308 FAX #: [phone] Reason: uro sepsis EXAMS: CPTCODE: [id number] RETRO LTD [id number] PROCEDURE INFORMATION: Exam: US Retroperitoneal Limited, KidneysExam date and time: 03/12/2023 11:08 AM Age: 47 years old Clinical indication: Condition or disease; Kidney or ureter condition; Acute renal insufficiency; Additional info: Uro sepsis TECHNIQUE: Imagingprotocol: Real-time ultrasound of the retroperitoneum with image documentation. Examination was focused on the kidneys. COMPARISON: 1. US DUP AB/PEL/SC COMP 11/22/2022 12:[address] ABD PELVIS W/CONT 11/19/2022 6:02 PM FINDINGS: Limitations: Patient body habitus and bowel gas limit detail. Right kidney: No stones. No hydronephrosis. 8.8 cm. Left kidney: No stones. No hydronephrosis. 8.9 cm. Bladder: Capone catheter decompresses the bladder. IMPRESSION: Limited exam. No acute findings. at 0809 Reported and signed by: Norberto Reese M.D. CC: Yesika Luo MD; Lauro CABELLO Technologist: Ernestina Conway Trnscb Date/Time: 03/13/2023 (808) t.JUAN [email or web address] Orig Print D/T: S: 03/13/2023 (808) Probe: PAGE 1 Signed ReportGLUCOSE [id number] 22:36:00 Test Item Value Reference Range Interpretation Comments GLUCOSE BEDSIDE (test 117 MG/DL 70-110 H Perfor med by certified code = GLUBED) file conversion operator at [facility] TOTAL IRON BINDING [id number] 16:24:00 Test Item Value Reference Range Interpretation Comments SERUM IRON (test code = IRON) 85 mcg/dL 35-150 N TOTAL IRON BINDING CAPACITY (test 249 mcg/dL 260-445 L code = TIBC) UIBC (test code = UIBC) 164 mcg/dL IRON SATURATION (test code = 34.1 % 14-34 H FESAT) VITAMIN [id number] 16:24:00 Test Item Value Reference Range Interpretation Comments VITAMIN B12 (test code = VITB12) 478 pg/mL 193-986 N [id number] 16:24:00 Test Item Value Reference Range Interpretation Comments FERRITIN (test code = CALEB) 2928.3 ng/mL 11.0-306.8 H RETIC COUNT (AUTOMATED)2023-03-12 16:23:00 Test Item Value Reference Range Interpretation Comments RETIC COUNT (AUTOMATED) (test code = 3.8 % 0.3-2.3 H RETICA) GLUCOSE [id number] 15:48:00 Test Item Value Reference Range Interpretation Comments GLUCOSE BEDSIDE (test 128 MG/DL 70-110 H Perfor med by certified code = GLUBED) file conversion operator at [facility] GLUCOSE [id number] 12:31:00 Test Item Value Reference Range Interpretation Comments GLUCOSE BEDSIDE (test 135 MG/DL 70-110 H Perfor med by certified code = GLUBED) file conversion operator at [facility] GLUCOSE [id number] 08:47:00 Test Item Value Reference Range Interpretation Comments GLUCOSE BEDSIDE (test 106 MG/DL 70-110 N [facility] by certified code = GLUBED) file conversion operator at [facility] BASIC METABOLIC [id number] 07:11:00 Test Item Value Reference Range Interpretation Comments SODIUM (test code = 134 mEq/L 134-147 N NA) POTASSIUM (test code 3.6 mEq/L 3.4-5.0 N = K) CHLORIDE (test code 96 mEq/L 100-108 L = CL) CARBON DIOXIDE (test 31 mEq/l 21-33 N code = CO2) ANION GAP (test code 11 0-20 N = GAP) GLUCOSE (test code = 109 mg/dL 70-110 N GLU) BLOOD UREA NITROGEN 14 mg/dL 7-18 N (test code = BUN) GLOMERULAR 36.5 95-105 L The Glomerular FILTRATION RATE Filtration R ate is a (test code = GFR) calculated parameterbased on serum Creatinine, pat ient age and sex. GFR va luesless than 60 mL/min/ 1.73 square meters a re indicative ofCh ronic Kidney Disease. Values less than 15 mL/min/1.73squa re meters indicate Kidney failure. The calculation forGFR is based on the CKD-EPI (2020) calculat ion. This formulais race indifferent and is the recommended for sudhir for GFRby the Nat nal Kidney Foundati on for Adults.The GFR will not calculate if th e sex is unknown or if thepatient's ag e is <18 years. CREATININE (test 1.7 mg/dL 0.6-1.3 H code = CREAT) CALCIUM (test code = 8.1 mg/dL 8.0-10.5 N CA) HEPATIC FUNCTION [id number] 07:11:00 Test Item Value Reference Range Interpretation Comments TOTAL PROTEIN (test code = PROT) 5.7 g/dL 6.4-8.2 L ALBUMIN (test code = ALB) 3.00 g/dL 3.4-5.0 L BILIRUBIN TOTAL (test code = 0.40 mg/dL 0.0-1.0 N BILT) BILIRUBIN DIRECT (test code = 0.20 MG/DL 0.0-0.30 N BILD) BILIRUBIN INDIRECT (test code = 0.20 MG/DL BILIND) SGOT/AST (test code = AST) 22 IUnit/L 15-37 N SGPT/ALT (test code = ALT) 16 IUnit/L 30-65 L ALKALINE PHOSPHATASE TOTAL (test 340 IUnit/L 20-125 H code = ALKP) [id number] 07:11:00 Test Item Value Reference Range Interpretation Comments PHOSPHOROUS (test code = PHOS) 4.4 MG/DL 2.5-4.9 N [id number] 07:11:00 Test Item Value Reference Range Interpretation Comments MAGNESIUM (test code = MAG) 1.27 mg/dL 1.80-2.40 L TROP-I HIGH [id number] 07:11:00 Test Item Value Reference Range Interpretation Comments TROP-I HIGH 294 ng/L 0-34 HH CAUTION: Units of the SENSITIVITY (test current te st methodology code = TROPIHS) (ng/L) diffe rfrom the prior test meth odology (ng/mL) by a fa ctor of 1000. 99t h Percentile Uppe r Reference Limit (URL): Fe males: 34 ng/LMales: 54 n g/L In order to distin guish acute elevations of h igh sensitivitytrop onin from other clinical conditions, the FourthUnive rsal Definition of M yocardial Infarction stressesclinica l assessment and the demonstration o f a rise and/orfall in s erial troponin result s above the URL. These resu lts were obtained using Siemens [employer] IM TnI Hreagent. Results from di fferent methodologies s hould not becompared to o ne another as quantitative results and URLs mayvar y by method. [id number] 07:08:00 Test Item Value Reference Range Interpretation Comments VANCOMYCIN (test code = VANCO) 14.7 mcg/mL ACETONE [id number] 07:04:00 Test Item Value Reference Range Interpretation Comments ACETONE QUANT NEGATIVE - <20 See_Comment [Automated message] (test code = mg/dL mg/dL The system [employer]) generated this result transmit tomy reference range : Neg - <20. The refe rence range was not u sed to interpret th is result as normal/abnormal . LACTIC [id number] 06:48:00 Test Item Value Reference Range Interpretation Comments LACTIC ACID (test code = LACT) 0.8 mmol/L 0.4-1.9 N PROTHROMBIN [id number] 06:46:00 Test Item Value Reference Range Interpretation Comments PROTHROMBIN TIME 14.9 SECONDS 9.3-12.9 H PATIENT (test code = PTP) INTERNATIONAL NORMAL 1.3 0.8-1.2 H TARGET INR BY RATIO (test code = INDICATIO N Indication INR) INR1. Prophylax is of venous thrombos is 2.0 - 3.0 (orthoped ic surgery), Proph ylaxis of venous throm bosis (other than hig h-risk surgery), Treat ment of Deep Vein Thrombosis/Pulm onary Embolism, Preve ntion of systemic emb olism - Tissue heart va lves, Acute Myocardia l Infarction (to prevent systemic emboli sm), Valvular heart disease, Atrial Fibrillation, Bileaflet mecha nical valve in aortic position.2. Mec hanical prosthetic valv es (high risk), 2. 5 - 3.5 Presence of Lup us Anticoagulant o r Antiphospholipi d Antibodies, Pre vention of systemic emb olism - Acute Myocardia l Infarction (to prevent recurrent infar ct). THROMBOPLASTIN TIME [id number] 06:46:00 Test Item Value Reference Range Interpretation Comments THROMBOPLASTIN TIME 30.5 Seconds 25.0-39.5 N Therape utic Range: PARTIAL (test code = 50.4 - 88.3 Seconds PTT) Effective 01/09/2019 CBC W/AUTO [id number] 06:42:00 Test Item Value Reference Range Interpretation Comments WHITE BLOOD CELL (test code = 10.9 x10 3/uL 4.5-11.0 WBC) RED BLOOD CELL (test code = 2.96 x10 6/uL 3.54-5.02 L RBC) HEMOGLOBIN (test code = HGB) 8.0 g/dL 11.0-15.0 L HEMATOCRIT (test code = HCT) 23.9 % 33.0-45.0 L MEAN CELL VOLUME (test code = 80.7 fL 81.0-99.0 L MCV) MEAN CELL HGB (test code = MCH) 27.0 pg 27.0-33.0 N MEAN CELL HGB CONCETRATION 33.5 g/dL 33.0-37.0 N (test code = MCHC) RED CELL DISTRIBUTION WIDTH CV 16.6 % 11.5-14.5 H (test code = RDW) RED CELL DISTRIBUTION WIDTH SD 48.1 fL 37.0-54.0 N (test code = RDW-SD) PLATELET COUNT (test code = 197 x10 3/uL 150-400 PLT) MEAN PLATELET VOLUME (test code 11.3 fL 7.0-9.0 H = MPV) NEUTROPHIL % (test code = NT%) 73.9 % 56.0-77.0 N IMMATURE GRANULOCYTE % (test 0.9 % 0.0-2.0 N code = IG%) LYMPHOCYTE % (test code = LY%) 19.0 % 14.0-32.0 N MONOCYTE % (test code = MO%) 4.8 % 4.8-9.0 N EOSINOPHIL % (test code = EO%) 0.3 % 0.3-3.7 N BASOPHIL % (test code = BA%) 1.1 % 0.0-2.0 N NUCLEATED RBC % (test code = 0.0 % 0-0 N NRBC%) NEUTROPHIL # (test code = NT#) 8.04 x10 3/uL 2.0-7.6 H IMMATURE GRANULOCYTE # (test 0.10 x10 3/uL 0.00-0.03 H code = IG#) LYMPHOCYTE # (test code = LY#) 2.06 x10 3/uL 1.0-3.8 N MONOCYTE # (test code = MO#) 0.52 x10 3/uL 0.1-0.8 N EOSINOPHIL # (test code = EO#) 0.03 x10 3/uL 0.0-0.2 N BASOPHIL # (test code = BA#) 0.12 x10 3/uL 0.0-0.2 N NUCLEATED RBC # (test code = 0.00 x10 3/uL 0.0-0.1 N NRBC#) MANUAL DIFF REQUIRED (test code NO = MDIFF) COVID 19 INHOUSE [id number] 06:40:00 Test Item Value Reference Range Interpretation Comments COVID 19 INHOUSE Negative Negative A negative result is AG (test code = presumptive and should be [id number]) confirmedwith a n FDA authorized mole cular assay, if necessary fo rpatient management.A po sitive result does not rule out co-infections w ithother pathogens.This test detects both viable (li ve) and non-viable,SARS -CoV, and SARS-CoV-2. Aileen t performance dep ends on theamount of vi rajni (antigen) in e sample.This aileen t has not been FDA cleare d or approved; the t est hasbeen authorized by Birdie HERRERA under an Emergency Use Authorization(E UA) for use by laboratories certified under the CLIA thatmeet the requirements to perform moderate, high or waivedcomplexit y tests. POC VENOUS BLOOD [id number] 06:15:00 Test Item Value Reference Range Interpretation Comments ELIESER'S TEST (test code = N/A ALLENS) POC VENOUS BLOOD GAS PH (test 7.411 7.33-7.45 N code = POCPHV) POC VENOUS BLOOD GAS PCO2 (test 48.9 mmHg 43-47 H code = [id number]) POC VENOUS BLOOD GAS PO2 (test 36.8 mmHG 10-50 N code = XPMIF4X) POC TCO2 VENOUS (test code = 32.6 [id number]) POC HCO3 VENOUS (test code = 31.1 MMOL/L 22-27 H [id number]) POC BASE EXCESS VENOUS (test 6.4 MMOL/L -4.0-4.0 H code = POCBEV) POC O2 SATURATION VENOUS (test 69.9 % 60-80 N code = VLAX4UT) VENOUS BLOOD GAS DELIVERY (test Cannula code = DELV) VENOUS BLOOD GAS SITE (test code Central Line = SITEV) BASIC METABOLIC [id number] 00:35:00 Test Item Value Reference Range Interpretation Comments SODIUM (test code = 136 mEq/L 134-147 N NA) POTASSIUM (test code 3.9 mEq/L 3.4-5.0 = K) CHLORIDE (test code 96 mEq/L 100-108 L = CL) CARBON DIOXIDE (test 31 mEq/l 21-33 code = CO2) ANION GAP (test code 13 0-20 N = GAP) GLUCOSE (test code = 134 mg/dL 70-110 H GLU) BLOOD UREA NITROGEN 14 mg/dL 7-18 (test code = BUN) GLOMERULAR 39.3 95-105 L The Glomerular FILTRATION RATE Filtration R ate is a (test code = GFR) calculated parameterbased on serum Creatinine, pat ient age and sex. GFR va luesless than 60 mL/min/ 1.73 square meters a re indicative ofCh ronic Kidney Disease. Values less than 15 mL/min/1.73squa re meters indicate Kidney failure. The calculation forGFR is based on the CKD-EPI (2020) calculat ion. This formulais race indifferent and is the recommended for sudhir for GFRby the Natio nal Kidney Foundati on for Adults.The GFR will not calculate if th e sex is unknown or if thepatient's ag e is <18 years. CREATININE (test 1.6 mg/dL 0.6-1.3 H code = CREAT) CALCIUM (test code = 8.4 mg/dL 8.0-10.5 N CA) TROP-I HIGH [id number] 00:35:00 Test Item Value Reference Range Interpretation Comments TROP-I HIGH 194 ng/L 0-34 HH CAUTION: Units of the SENSITIVITY (test current te st methodology code = TROPIHS) (ng/L) diffe rfrom the prior test meth odology (ng/mL) by a fa ctor of 1000. 99t h Percentile Uppe r Reference Limit (URL): Fe males: 34 ng/LMales: 54 n g/L In order to distin guish acute elevations of h igh sensitivitytrop onin from other clinical conditions, the FourthUnive rsal Definition of M yocardial Infarction stressesclinica l assessment and the demonstration o f a rise and/orfall in s erial troponin result s above the URL. These resu lts were obtained using Siemens [employer]ell[employer] IM TnI Hreagent. Results from di fferent methodologies s hould not becompared to o ne another as quantitative results and URLs mayvar y by method. 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 99t h Percentile Uppe r Reference Limit (URL): Fe males: 34 ng/LMales: 54 n g/L In order to distin guish acute elevations of h igh sensitivitytrop onin from other clinical conditions, the FourthUnive rsal Definition of M yocardial Infarction stressesclinica l assessment and the demonstration o f a rise and/orfall in s erial troponin result s above the URL. These resu lts were obtained using Siemens [employer] IM TnI Hreagent. Results from di fferent methodologies s hould not becompared to o ne another as quantitative results and URLs mayvar y by method. GLUCOSE [id number] 17:19:00 Test Item Value Reference Range Interpretation Comments GLUCOSE BEDSIDE (test 149 MG/DL 70-110 H Perfor med by certified code = GLUBED) file conversion operator at [facility] ACUTE HEPATITIS [id number] 15:11:00 Test Item Value Reference Range Interpretation Comments AB HEPATITIS A IGM (test NON REACTIVE INDEX NON REACT. code = HAVMAB) AG HEPATITIS B SURFACE NON REACTIVE INDEX NonReactive (test code = HBSAG) AB HEPATITIS B CORE IGM NON REACTIVE INDEX NON REACT. (test code = HBCMAB) AB HEPATITIS C (test code NON REACTIVE INDEX NON REACT. = HCVAB) Comment: At start of [id number] 13:46:00 Test Item Value Reference Range Interpretation Comments POTASSIUM (test code = 6.5 mEq/L 3.4-5.0 HH Criti cipriano result called K) to Quinton DOAN [id number] at 13 43 03/11/23Nurse r ead back result and tech confirmed it's correct? Y [id number] 13:42:00 Test Item Value Reference Range Interpretation Comments VANCOMYCIN (test code = VANCO) 34.5 mcg/mL GLUCOSE [id number] 12:46:00 Test Item Value Reference Range Interpretation Comments GLUCOSE BEDSIDE (test 104 MG/DL 70-110 N Perfor med by certified code = GLUBED) file conversion operator at [facility] TROP-I HIGH [id number] 11:21:00 Test Item Value Reference Range Interpretation Comments TROP-I HIGH 270 ng/L 0-34 HH Critical result called to SENSITIVITY (test BLANK LAWS Quinton MCGEE code = TROPIHS) [id number] at 1121 03/11/23Nurse r ead back result and tech confirmed it's correct? Y CAUTION: Units of the cu rrent test methodology (ng /L) differfrom the prior test methodology (ng /mL) by a factor of 1000. 99t h Percentile Uppe r Reference Limit (URL): Fe males: 34 ng/LMales: 54 n g/L In order to distin guish acute elevations of h igh sensitivitytrop onin from other clinical conditions, the FourthUnive rsal Definition of M yocardial Infarction stressesclinica l assessment and the demonstration o f a rise and/orfall in s erial troponin result s above the URL. These resu lts were obtained using Siemens [employer]ell[employer] IM TnI Hreagent. Results from di fferent methodologies s hould not becompared to o ne another as quantitative results and URLs mayvar y by method. LACTIC ACID 2ND [id number] 11:16:00 Test Item Value Reference Range Interpretation Comments LACTIC ACID 2ND REPEAT (test code 2.0 mmol/L 0.4-1.9 H = LACT2) UR OSMOLALITY [id number] 10:43:00 Test Item Value Reference Range Interpretation Comments UR OSMOLALITY RANDOM (test code = 313 MOS/KG 300-1000 N OSMOU) Indication for culture: RiskForSepsis-no oth srcSpecimen Description: INDWELLING CATH (CAPONE)Cath Status: Less than 14 daysUA RFLX MICR CULT IF INDICATED 2023-03-11 10:43:00 Test Item Value Reference Range Interpretation Comments UA COLOR (test code = COLU) YELLOW YEL/STRAW UA APPEARANCE (test code = TURBID CLEAR A APPU) UA GLUCOSE DIPSTICK (test code NEGATIVE NEGATIVE = DGLUU) UA BILIRUBIN DIPSTICK (test NEGATIVE NEGATIVE code = BILU) UA KETONE DIPSTICK (test code NEGATIVE NEGATIVE = KETU) UA SPECIFIC GRAVITY (test code 1.010 1.005-1.030 N = SGU) UA BLOOD DIPSTICK (test code = 3+ NEGATIVE A JOSE CARLOS) UA PH DIPSTICK (test code = 5.0 5.0-7.0 N DIMITRI) UA PROTEIN DIPSTICK (test code 2+ NEGATIVE A = PROU) UA UROBILINIOGEN DIPSTICK 0.2 mg/dL 0.2-1.0 (test code = URO) UA NITRITE DIPSTICK (test code NEGATIVE NEGATIVE = MACIEJ) UA LEUKOCYTE ESTERASE DIPSTICK 2+ NEGATIVE A (test code = LEUU) UA WBC (test code = WBCU) >50 WBC/HPF 0-3 A UA RBC (test code = RBCU) >50 RBC/HPF 0-3 A UA WBC NO REFLEX (test code = >50 WBC/HPF 0-3 A WBCUCL) UA BACTERIA (test code = BACU) 3+ /HPF NONE SEEN A UA SQUAMOUS CELLS (test code = NONE SEEN /HPF NONE SEEN SQU) UA MUCUS (test code = MUCU) 3+ /LPF NONE SEEN A UA YEAST (BUDDING) (test code 4+ /HPF NONE = YEASTUBD) Indication for culture: RiskForSepsis-no oth srcSpecimen Description: INDWELLING CATH (CAPONE)Cath Status: Less than 14 daysUR SODIUM [id number] 10:43:00 Test Item Value Reference Range Interpretation Comments UR SODIUM RANDOM 48 MEQ/L The Referen ce Range and (test code = MING) Method Per formance specificationsh ave not been established for this fluid. The test result should be correlated into the clinical context forinte rpretation. Indication for culture: RiskForSepsis-no oth srcSpecimen Description: INDWELLING CATH (CAPONE)Cath Status: Less than 14 daysUR PROTEIN [id number] 10:43:00 Test Item Value Reference Range Interpretation Comments UR PROTEIN RANDOM (test code = 171 mg/dL PROTU) Indication for culture: RiskForSepsis-no oth srcSpecimen Description: INDWELLING CATH (CAPONE)Cath Status: Less than 14 daysUR CREATININE [id number] 10:43:00 Test Item Value Reference Range Interpretation Comments UR CREATININE 49.9 mg/dL The Reference Range and RANDOM (test code Method Per formance = CREATU) specificationsh ave not been establishe d for this fluid. The test resultshould be correlated into the clinical contex t forinterpretati on. Indication for culture: RiskForSepsis-no oth srcSpecimen Description: INDWELLING CATH (CAPONE)Cath Status: Less than 14 daysUR OSMOLALITY [id number] 10:43:00 Test Item Value Reference Range Interpretation Comments UR OSMOLALITY RANDOM (test code = 313 MOS/KG 300-1000 OSMOU) Indication for culture: RiskForSepsis-no oth srcSpecimen Description: INDWELLING CATH (CAPONE)Cath Status: Less than 14 daysLACTIC ACID [id number] 09:43:00 Test Item Value Reference Range Interpretation Comments LACTIC ACID REPEAT (test code = 3.3 mmol/l 0.4-1.9 H LACTR) BASIC METABOLIC [id number] 07:24:00 Test Item Value Reference Range Interpretation Comments SODIUM (test code = 129 mEq/L 134-147 L NA) POTASSIUM (test code 7.1 mEq/L 3.4-5.0 HH Critica l result called = K) to DIAN Simpson RN by FMS22 at 04 1803/11/23Nurse r ead back result and tech confirmed it's correct? Y CHLORIDE (test code 102 mEq/L 100-108 N = CL) CARBON DIOXIDE (test 14 mEq/l 21-33 L code = CO2) ANION GAP (test code 20 0-20 N = GAP) GLUCOSE (test code = 168 mg/dL 70-110 H GLU) BLOOD UREA NITROGEN 36 mg/dL 7-18 H (test code = BUN) GLOMERULAR 15.9 95-105 L The Glomerular FILTRATION RATE Filtration R ate [...] the recommended for sudhir for GFRby the Nat nal Kidney Foundati on for Adults.The GFR will not calculate if th e sex is unknown or if thepatient's ag e is <18 years. CREATININE (test 3.4 mg/dL 0.6-1.3 H code = CREAT) CALCIUM (test code = 10.8 mg/dL 8.0-10.5 H CA) LACTIC [id number] 07:16:00 Test Item Value Reference Range Interpretation Comments LACTIC ACID (test code = LACT) 2.9 mmol/L 0.4-1.9 H B-TYPE NATRIURETIC [id number] 06:00:00 Test Item Value Reference Range Interpretation Comments B-TYPE NATRIURETIC PEPTIDE (test 64.0 PG/ML 0-100 N code = BNP) BASIC METABOLIC [id number] 04:11:00 Test Item Value Reference Range Interpretation Comments SODIUM (test code = NA/ABG) 126 mmol/L 134-147 L POTASSIUM (test code = K/ABG) 8.1 mmol/L 3.4-5.0 HH CHLORIDE (test code = CL/ABG) 110 mmol/L 100-108 H CREATININE ABG (test code = 3.9 mg/dL 0.6-1.0 H CREAABG) POC IONIZED CALCIUM (test code = 1.39 MMOL/L 1.12-1.32 H POCCA) POC GLUCOSE (test code = POCGLU) 124 MG/DL 70-110 H HEMOGLOBIN [id number] 04:11:00 Test Item Value Reference Range Interpretation Comments HEMOGLOBIN ABG (test code = 11.1 G/DL 11.0-15.0 N HGB/ABG) [id number] 04:11:00 Test Item Value Reference Range Interpretation Comments HEMATOCRIT (test code = HCT/ABG) 32 % 33.0-45.0 L POC LACTIC [id number] 04:11:00 Test Item Value Reference Range Interpretation Comments POC LACTIC ACID (test code = 2.8 mmol/l 0.9-1.7 H POCLAC) POC VENOUS BLOOD [id number] 04:11:00 Test Item Value Reference Range Interpretation Comments POC VENOUS BLOOD GAS PH (test 7.096 7.33-7.45 L code = POCPHV) POC VENOUS BLOOD GAS PCO2 (test 33.5 mmHg 43-47 L code = QZHQED9Y) POC VENOUS BLOOD GAS PO2 (test 43.2 mmHG 10-50 N code = EIHDG4L) POC TCO2 VENOUS (test code = 11.4 CCESII6U) POC HCO3 VENOUS (test code = 10.4 MMOL/L 22-27 L VSBKEQ0O) POC BASE EXCESS VENOUS (test -19.4 MMOL/L -4.0-4.0 L code = POCBEV) POC O2 SATURATION VENOUS (test 63.6 % 60-80 N code = NZTC1EQ) VENOUS BLOOD GAS FIO2 (test code 100.0 % = FIO2V) VENOUS BLOOD GAS DELIVERY (test NRBMASK code = DELV) VENOUS BLOOD GAS TEMP (test code 97.9 F = TEMPV) LIPOPROTEIN [id number] 03:55:00 Test Item Value Reference Range Interpretation Comments LIPOPROTEIN LDL 48.0 mg/dL 0-100 N <100 OPTIMAL 100-129 NEAR (test code = LDL) OPTIMAL/AB OVE [id number] 89 HIGH>KH=467 CAITLIN Y HIGH*Guidelines provided by the National Cholesterol EducationProgra m Adult Treatment Panel III BASIC METABOLIC [id number] 03:39:00 Test Item Value Reference Range Interpretation Comments SODIUM (test code = 125 mEq/L 134-147 L NA) POTASSIUM (test code 8.3 mEq/L 3.4-5.0 HH Critica l result called = K) to ABDULLAHI Cooper [id number] at 03 38 03/11/23Nurse r ead back result and tech confirmed it's correct? Y CHLORIDE (test code 100 mEq/L 100-108 N = CL) CARBON DIOXIDE (test 11 mEq/l 21-33 L code = CO2) ANION GAP (test code 22 0-20 H = GAP) GLUCOSE (test code = 224 mg/dL 70-110 H GLU) BLOOD UREA NITROGEN 42 mg/dL 7-18 H (test code = BUN) GLOMERULAR 14.4 95-105 L The Glomerular FILTRATION RATE Filtration R ate is a (test code = GFR) calculated parameterbased on serum Creatinine, pat ient age and sex. GFR va luesless than 60 mL/min/ 1.73 square meters a re indicative ofCh ronic Kidney Disease. Values less than 15 mL/min/1.73squa re meters indicate Kidney failure. The calculation forGFR is based on the CKD-EPI (2020) calculat ion. This formulais race indifferent and is the recommended for sudhir for GFRby the Natio nal Kidney Foundati on for Adults.The GFR will not calculate if th e sex is unknown or if thepatient's ag e is <18 years. CREATININE (test 3.7 mg/dL 0.6-1.3 H code = CREAT) CALCIUM (test code = 9.6 mg/dL 8.0-10.5 N CA) TROP-I HIGH [id number] 03:39:00 Test Item Value Reference Range Interpretation Comments TROP-I HIGH 553 ng/L 0-34 HH Critical result called to SENSITIVITY (test ABDULLAHI Cooper code = TROPIHS) [id number] at 03303/11/23Nurse r ead back result and tech confirmed it's correct?Y CAUTION: Units of the cu rrent test methodology (ng /L) differfrom the prior test methodology (ng /mL) by a factor of 1000. 99t h Percentile Uppe r Reference Limit (URL): Fe males: 34 ng/LMales: 54 n g/L In order to distin guish acute elevations of h igh sensitivitytrop onin from other clinical conditions, the FourthUnive rsal Definition of M yocardial Infarction stressesclinica l assessment and the demonstration o f a rise and/orfall in s erial troponin result s above the URL. These resu lts were obtained using Siemens [employer] IM TnI Hreagent. Results from di fferent methodologies s hould not becompared to o ne another as quantitative results and URLs mayvar y by method. CBC W/AUTO [id number] 03:13:00 Test Item Value Reference Range Interpretation Comments WHITE BLOOD CELL 29.3 x10 3/uL 4.5-11.0 H (test code = WBC) RED BLOOD CELL (test 3.79 x10 6/uL 3.54-5.02 N code = RBC) HEMOGLOBIN (test code 10.4 g/dL 11.0-15.0 L = HGB) HEMATOCRIT (test code 32.1 % 33.0-45.0 L = HCT) MEAN CELL VOLUME 84.7 fL 81.0-99.0 N (test code = MCV) MEAN CELL HGB (test 27.4 pg 27.0-33.0 N code = MCH) MEAN CELL HGB 32.4 g/dL 33.0-37.0 L CONCETRATION (test code = MCHC) RED CELL DISTRIBUTION 16.9 % 11.5-14.5 H WIDTH CV (test code = RDW) RED CELL DISTRIBUTION 51.7 fL 37.0-54.0 N WIDTH SD (test code = RDW-SD) PLATELET COUNT (test 402 x10 3/uL 150-400 H code = PLT) MEAN PLATELET VOLUME 11.8 fL 7.0-9.0 H (test code = MPV) NEUTROPHIL % (test 83.2 % 56.0-77.0 H code = NT%) LYMPHOCYTE % (test 10.0 % 14.0-32.0 L code = LY%) NEUTROPHIL # (test 24.33 x10 3/uL 2.0-7.6 H code = NT#) LYMPHOCYTE # (test 2.94 x10 3/uL 1.0-3.8 N code = LY#) MANUAL DIFF REQUIRED NO SLIDE R KAVON, (test code = MDIFF) CONSISTE NT WITH AUTO DIFF.Previously reported result : NO Edited by: [id number] on 03/11/23: 0312: MAN DI FF NEEDED previous ly reported as: NO IMMATURE GRANULOCYTE 2.3 % 0.0-2.0 H % (test code = IG%) MONOCYTE % (test code 3.9 % 4.8-9.0 L = MO%) EOSINOPHIL % (test 0.1 % 0.3-3.7 L code = EO%) BASOPHIL % (test code 0.5 % 0.0-2.0 N = BA%) NUCLEATED RBC % (test 0.0 % 0-0 N code = NRBC%) IMMATURE GRANULOCYTE 0.68 x10 3/uL 0.00-0.03 H # (test code = IG#) MONOCYTE # (test code 1.14 x10 3/uL 0.1-0.8 H = MO#) EOSINOPHIL # (test 0.02 x10 3/uL 0.0-0.2 N code = EO#) BASOPHIL # (test code 0.15 x10 3/uL 0.0-0.2 N = BA#) NUCLEATED RBC # (test 0.00 x10 3/uL 0.0-0.1 N code = NRBC#) RBC [id number] 03:13:00 Test Item Value Reference Range Interpretation Comments ANISOCYTOSIS (test code = ANISO) 1+ POLYCHROMASIA (test code = POLC) 1+ POIKILOCYTOSIS (test code = POIK) 2+ - XR CHEST 1 [id number] 00:00:00 [facility] : 1975 Sex: F FAX: Yesika Jacob MD [phone] [place]: St: ADM FAX: Tania Parada MD Name: LIZBET RAHMAN [facility] : 1975 Age/S: 47/F [address] [place] [address] Unit #: [id number] Loc: G.M[address] [place] [address] Phys: Tania Parada MD Acct: [id number] Dis Date: Status: ADM IN PHONE #: [phone] Exam Date: 03/11/2023 1253 FAX #: [phone] Reason: CENTRAL LINE PLACEMENT EXAMS: CPT CODE: [id number] XR CHEST 1 V [id number] PROCEDURE INFORMATION: Exam: XR Chest Exam date and time: 03/11/2023 12:29 PM Age: 47 years old Clinical indication: Device placement; Other: Central line placement TECHNIQUE: Imaging protocol: Radiologic exam of the chest. Views: 1 view. COMPARISON: CR XR CHEST 1V 03/11/2023 3:12 AM FINDINGS: Tubes, catheters and devices: Right neck vascular catheter has been placed with tip projecting over the cavoatrial junction region. Lungs: The lungs are clear. Interstitial opacities are improved. Pleural spaces:No visible pneumothorax or pleural effusion by portable study. Heart/Mediastinum: Cardiomediastinal silhouette is normal in size. Diaphragm: Stable asymmetric elevation of the right hemidiaphragm. Bones/joints: No acute bony finding. IMPRESSION: Right neck vascular catheter placement. No acute pulmonary findings. at 1323 Reportedand signed by: John Ortiz M.D. CC: Yesika Luo MD; Tania Parada MD Technologist: RT Tom(R) Trnscrd Date/Time/By: 03/11/2023 (3598) : By: [email or web address] Orig Print D/T: S: 03/11/2023 (8723) PAGE 1 Signed Report- XR CHEST 1 [id number] 00:00:00 [facility] 1975 Sex: F FAX: Miranda Portillo MD [place]: St: REG Name: LIZBET RAHMAN [facility] ER : 1975 Age/S: 47/F [address] [place] [address] Unit #: [id number] Loc: [place] [address] Phys: Miranda Portillo MD Acct: [id number] Dis Date: Status: REG ER PHONE #: [phone] Exam Date: 03/11/2023320 FAX #: [phone] Reason: chest pain EXAMS: CPT CODE: [id number] XR CHEST 1 V [id number] PROCEDURE INFORMATION: Exam: XR Chest Exam date and time: 03/11/2023 3:12 AM Age: 47 years old Clinical indication: Other: Chest pain TECHNIQUE: Imaging protocol: Radiologic exam of the chest. Views: 1 view. COMPARISON: CR XR CHEST 1V 02/23/2023 8:59 PM FINDINGS: Lungs: The lungs are hypoinflated. Increased interstitial markings are noted bilaterally. No focal consolidation. Pleural spaces: No pleural effusion. No pneumothorax. Heart/Mediastinum: Mild cardiomegaly. Diaphragm: Elevation of right hemidiaphragm. Bones/joints: No acute abnormality. IMPRESSION: Increased interstitial markings bilaterally may represent edema or atypical/viral pn eumonitis. at 0409 Reported and signed by: Michel Pearson M.D. CC: Miranda Portillo MD Technologist: RT Jerrod(Brock) Trnscrd Date/Time/By: 03/11/2023 (408) : By: [email or web address] Orig Print D/T: S: 03/11/2023 (408) PAGE 1 Signed ReportTROPONIN-I [id number] 22:29:00 Test Item Value Reference Range Interpretation Comments TROPONIN-I RAPID < 0.05 <0.05 Performed b y certified (test code = file conversion operator at [facility]"[place] [facility] [place] re test critical value notification anddocumentatio n is completed by nursing staf f. Negative <0.05 ng/mLPosi tive >/= 0.05 ng/mL Test resu lts should not be used as abso lute evidence or lackof evide nce of myocardial infa rction and should be evalu atedin the context of all the clinical and laboratory dataavailable. In those instan sofya where the test results do notagree with the clinical ev aluation, additional test s shouldbe performed.An el evated troponin alone is not aguilar fficient to diagnosemyocard ial infarction. Rather, the pat ient's clinicalpresent ation (history, physical exam) and ECG should be usedin conju nction with troponin in the diagnostic evaluation ofsu spected myocardial infa rction. A serial sampling protocolis recommended to facilitate the identification of temporalchanges in troponin levels. LIVER [id number] 22:17:00 Test Item Value Reference Range Interpretation Comments TOTAL PROTEIN (test code 5.5 GM/DL 5.0-8.0 N Per formed by = PROT) certified opera tor at [facility] ed C[facility] ALBUMIN (test code = 2.9 g/dL 3.4-5.0 L ALB) BILIRUBIN TOTAL (test 0.5 MG/DL 0.0-1.0 N code = BILT) SGOT/AST (test code = 14 IUnit/L 15-37 L AST) SGPT/ALT (test code = < 5 IUnit/L 30-65 L ALT) GAMMA GLUTAMYL 81 UNITS/L 5-85 N TRANSPEPTIDASE (test code = GGT) ALKALINE PHOSPHATASE 190 IUNIT/L 20-125 H TOTAL (test code = ALKP) AMYLASE (test code = 38 UNITS/L 25-125 N LELIA) BASIC METABOLIC [id number] 22:04:00 Test Item Value Reference Range Interpretation Comments SODIUM (test code = NA/ABG) 137 mmol/L 134-147 N POTASSIUM (test code = K/ABG) 3.9 mmol/L 3.4-5.0 N CHLORIDE (test code = CL/ABG) 106 mmol/L 100-108 N CREATININE ABG (test code = 0.9 mg/dL 0.6-1.0 N CREAABG) POC IONIZED CALCIUM (test code = 1.23 MMOL/L 1.12-1.32 N POCCA) POC GLUCOSE (test code = POCGLU) 90 MG/DL 70-110 N POC LACTIC [id number] 22:04:00 Test Item Value Reference Range Interpretation Comments POC LACTIC ACID (test code = 0.9 mmol/l 0.9-1.7 N POCLAC) COMPLETE BLOOD COUNT (CBC)2023-02-23 21:28:00 Test Item Value Reference Range Interpretation Comments POC WHITE BLOOD CELL 5.2 10 3/uL 4.1-10.4 N Testing performed (test code = EDWBC) at:[facility] [address] [place], [place] [address] POC RED BLOOD CELL 3.03 10 6/uL 3.43-5.21 L (test code = EDRBC) POC HEMOGLOBIN (test 8.2 g/dL 10.9-14.8 L code = EDHGB) POC HEMATOCRIT (test 24.6 % 32.5-46.2 L code = EDHCT) POC MEAN CELL VOLUME 81.2 fL 82.5-98.0 L (test code = EDMCV) POC MEAN CELL 27.1 pg 26.1-32.9 N HEMOGLOBIN (test code = EDMCH) POC MEAN CELL HGB CONC 33.3 g/dL 30.7-34.9 N (test code = EDMCHC) POC PLATELET COUNT 385 10 3/uL 136-388 N (test code = EDPLT) POC RED CELL DISTRIB 17.8 % 11.8-16.4 H WIDTH (test code = EDRDW-CV) POC LYMPHOCYTES % 13.2 % 13.9-44.4 L (test code = EDLYM%) POC MIXED CELLS % 7.0 % 4.7-13.3 N (test code = EDMXD%) POC NEUTROPHILS % 79.8 % 49.1-76.9 H (test code = EDNEUT%) POC LYMPHOCYTES # 0.70 k/mm3 1.0-3.4 L (test code = EDLYM#) POC MIXED CELLS # 0.4 10 3/uL 0.3-1.1 N (test code = EDMXD#) POC NEUTROPHILS # 4.10 10 3/uL 2.4-7.5 N (test code = EDNEUT#) POC MEAN PLATELET 10.6 fL 7.9-13.3 N VOLUME (test code = EDMPV) - CHEST 1 [id number] 21:27:00 [facility] : 1975 Sex: F FAX: Tarun Oliver MD [phone] [place]: [place] St: PRE Name: LIZBET RAHMAN FSED : 1975 Age/S: 47/F [address] [facility]. Unit #: [id number] Loc: [place] [address] Phys: Tarun Oliver MD Acct: [id number] Dis Date: Status: PRE ER PHONE #: Exam Date: 02/23/20232111 FAX #: Reason: chest pain EXAMS: CPT CODE: [id number] XR CHEST 1 V 46306 EXAM: - XR CHEST 1 V COMPARISON: 11/24/22 LOCATION: [facility] HISTORY: chest pain FINDINGS: Single view of the chest. No indwelling lines or tubes. No pneumothorax. Right basilar mild airspace disease. No effusions. The mediastinal contours are unremarkable/unchanged. No acute osseous findings are present. IMPRESSION: Right basilar mild airspace disease. Electronically S igned by Marifer Verdugo on 02/23/2023 at 2126 Reported and signed by: Herve Verdugo M.D. CC: Tarun Oliver MD Technologist: RT Leo(R)(CT) Trnscrd Date/Time/By: 02/23/2023 (2126) : By: [email or web address] Orig Print D/T: S: 02/23/2023 (2129) PAGE 1 Signed ReportFUNGUS CULTURE + [id number] 17:50:30 Test Item Value Reference Range Interpretation Comments CULTURE (BEAKER) (test No fungus isolated in code = 1095) 28 days FUNGUS SMEAR (BEAKER) No fungi seen (test code = 1406) [id number] 16:48:25 Test Item Value Reference Range Interpretation Comments MAGNESIUM (test code = 1614867612) 1.0 mg/dL 1.7-2.4 L Lab Interpretation (test code = Abnormal 60898-2) [facility] METABOLIC PANEL (NA, K, CL, CO2, GLUCOSE, BUN, CREATININE, CA)2023-02-21 16:46:14 Test Item Value Reference Range Interpretation Comments NA (test code = 136 mmol/L 135-145 5305406177) K (test code = 3.6 mmol/L 3.5-5.0 0948936153) CL (test code = 113 mmol/L 98-108 H 8185543089) CO2 TOTAL (test code = 18 mmol/L 23-31 L 2061102202) AGAP (test code = 5 2-16 3696399755) BUN (test code = 9 mg/dL 7-23 7262450968) GLUCOSE (test code = 104 mg/dL 70-110 0673182434) CREATININE (test code = 0.81 mg/dL 0.50-1.04 6528483378) CALCIUM (test code = 8.4 mg/dL 8.6-10.6 L 5603198525) eGFR (test code = 75.2 mL/min/1.73m2 6845030405) AREN (test code = AREN) Association of [...] tests). Lab Interpretation Abnormal (test code = 93232-3) [facility] WITH [id number] 16:31:36 Test Item Value Reference Range Interpretation Comments WBC (test code = 5.89 See_Comment [Automated 6690-2) message] The sy stem which generated this result transmitted reference range : 4.30 - 11.10 10*3/?L. The reference range was not used to interpret this result as normal/abnormal . RBC (test code = 2.88 See_Comment L [Automated 789-8) message] The sy stem which generated this result transmitted reference range : 3.93 - 5.25 10*6/?L. The reference range was not used to interpret this result as normal/abnormal . HGB (test code = 7.8 g/dL 11.6-15.0 L 718-7) HCT (test code = 24.4 % 35.7-45.2 L 4544-3) MCV (test code = 84.7 fL 80.6-95.5 787-2) MCH (test code = 27.1 pg 25.9-32.8 785-6) MCHC (test code = 32.0 g/dL 31.6-35.1 786-4) RDW-SD (test code = 52.5 fL 39.0-49.9 H 15924-3) RDW-CV (test code = 17.0 % 12.0-15.5 H 788-0) PLT (test code = 273 See_Comment [Automated 777-3) message] The sy stem which generated this result transmitted reference range : 166 - 358 10*3/ ?L. The reference r stefanie was not used to interpret this result as normal/abnormal . MPV (test code = 10.2 fL 9.5-12.9 05118-9) NRBC/100 WBC (test 0.0 See_Comment [Automat ed code = 1133642286) message] The system which generated this result transmitted reference range : 0.0 - 10.0 /100 WBCs. The refer ence range was not u sed to interpret th is result as normal/abnormal . NRBC x10^3 (test code See_Comment [Auto mated = 1515532921) message] The s ystem which generated this result transmitted reference range : 10*3/?L. The reference range was not used to interpret this result as normal/abnormal . GRAN MAT (NEUT) % 85.0 % (test code = 770-8) IMM GRAN % (test code 0.50 % = 9586725672) LYMPH % (test code = 8.1 % 736-9) MONO % (test code = 5.4 % 5905-5) EOS % (test code = 0.7 % 713-8) BASO % (test code = 0.3 % 706-2) GRAN MAT x10^3(ANC) 5.00 10*3/uL 1.88-7.09 (test code = 9629237022) IMM GRAN x10^3 (test 0.03 10*3/uL 0.00-0.06 code = 4942939357) LYMPH x10^3 (test code 0.48 10*3/uL 1.32-3.29 L = 731-0) MONO x10^3 (test code 0.32 10*3/uL 0.33-0.92 L = 742-7) EOS x10^3 (test code = 0.04 10*3/uL 0.03-0.39 711-2) BASO x10^3 (test code 0.01-0.07 = 704-7) Lab Interpretation Abnormal (test code = 12152-6) [facility] Packed RBC (in units)2023-02-18 22:52:30 Test Item Value Reference Range Interpretation Comments Unit Blood Type (test O Pos code = 4410) ISBT Blood Type Code 5100 (test code = 905927) Unit Number (test [id number] code = 4411) Blood Expiration Date [id number] & Time (test code = 006728) Status Information Issued (test code = 4412) Product Red Blood Cells Identification (test code = 4413) Product Code (test C8502E32 Performed at [facility] code = 4414) Laboratory Services - [facility] Blood [address] [place] [id number] Free: [phone] A No. [id number] Cross Match Result Compatible (test code = 4409) [facility] Northwest[facility] [id number] 07:10:57 Test Item Value Reference Range Interpretation Comments TROPONIN I (test code = <=0.034 0393092692) AREN (test code = AREN) Reference (Normal) Range (defined by the 99th percentile reference limit): <= 0.034 ng/mL Note: Cardiac troponin begins to rise 3-4 hours after the onset of ischemia. Repeat in 4-6 hours if the sample was drawn within 3-4 hours of the onset of the symptom and found normal. Diagnosis of myocardial injury is made with acute changes in cTn concentrations with at least one serial sample above the 99th percentile upper reference limit (URL), taken together with the patient's clinical presentation. Biotin has been reported to cause a negative bias, interpret results relative to patient's use of biotin. Lab Interpretation Normal (test code = 23789-8) [facility] (NA, K, CL, CO2, GLUCOSE, BUN, CREATININE, CA)2023-02-18 06:59:15 Test Item Value Reference Range Interpretation Comments NA (test code = 129 mmol/L 135-145 L 7140955870) K (test code = 4.2 mmol/L 3.5-5.0 1303443729) CL (test code = 105 mmol/L 98-108 3652891476) CO2 TOTAL (test code = 16 mmol/L 23-31 L 7827989919) AGAP (test code = 8 2-16 5463886130) BUN (test code = 27 mg/dL 7-23 H 8450120542) GLUCOSE (test code = 86 mg/dL 70-110 0039812534) CREATININE (test code = 1.51 mg/dL 0.50-1.04 H 9488506523) CALCIUM (test code = 8.3 mg/dL 8.6-10.6 L 3768894752) eGFR (test code = 36.6 mL/min/1.73m2 3125456883) AREN (test code = AREN) Association of [...] tests). Lab Interpretation Abnormal (test code = 93714-3) [facility] WITH [id number] 06:44:57 Test Item Value Reference Range Interpretation Comments WBC (test code = 6.63 See_Comment [Automated 2563-2) message] The sy stem which generated this result transmitted reference range : 4.30 - 11.10 10*3/?L. The reference range was not used to interpret this result as normal/abnormal . RBC (test code = 2.68 See_Comment L [Automated 094-2) message] The sy stem which generated this result transmitted reference range : 3.93 - 5.25 10*6/?L. The reference range was not used to interpret this result as normal/abnormal . HGB (test code = 6.9 g/dL 11.6-15.0 L 718-7) HCT (test code = 22.5 % 35.7-45.2 L 4544-3) MCV (test code = 84.0 fL 80.6-95.5 787-2) MCH (test code = 25.7 pg 25.9-32.8 L 785-6) MCHC (test code = 30.7 g/dL 31.6-35.1 L 786-4) RDW-SD (test code = 52.4 fL 39.0-49.9 H 06811-8) RDW-CV (test code = 17.2 % 12.0-15.5 H 788-0) PLT (test code = 382 See_Comment H [Automated 777-3) message] The sy stem which generated this result transmitted reference range : 166 - 358 10*3/ ?L. The reference r stefanie was not used to interpret this result as normal/abnormal . MPV (test code = 10.0 fL 9.5-12.9 62919-6) NRBC/100 WBC (test 0.0 See_Comment [Automat ed code = 8290908106) message] The system which generated this result transmitted reference range : 0.0 - 10.0 /100 WBCs. The refer ence range was not u sed to interpret th is result as normal/abnormal . NRBC x10^3 (test code See_Comment [Auto mated = 7766518452) message] The s ystem which generated this result transmitted reference range : 10*3/?L. The reference range was not used to interpret this result as normal/abnormal . GRAN MAT (NEUT) % 77.8 % (test code = 770-8) IMM GRAN % (test code 1.20 % = 8687473108) LYMPH % (test code = 13.0 % 736-9) MONO % (test code = 5.9 % 5905-5) EOS % (test code = 1.5 % 713-8) BASO % (test code = 0.6 % 706-2) GRAN MAT x10^3(ANC) 5.16 10*3/uL 1.88-7.09 (test code = 8574939990) IMM GRAN x10^3 (test 0.08 10*3/uL 0.00-0.06 H code = 4155064559) LYMPH x10^3 (test code 0.86 10*3/uL 1.32-3.29 L = 731-0) MONO x10^3 (test code 0.39 10*3/uL 0.33-0.92 = 742-7) EOS x10^3 (test code = 0.10 10*3/uL 0.03-0.39 711-2) BASO x10^3 (test code 0.04 10*3/uL 0.01-0.07 = 704-7) Lab Interpretation Abnormal (test code = 40967-2) [facility] NorthwestTROPONIN [id number] 20:43:18 Test Item Value Reference Range Interpretation Comments TROPONIN I (test code = <=0.034 9156143139) AREN (test code = AREN) Reference (Normal) Range (defined by the 99th percentile reference limit): <= 0.034 ng/mL Note: Cardiac troponin begins to rise 3-4 hours after the onset of ischemia. Repeat in 4-6 hours if the sample was drawn within 3-4 hours of the onset of the symptom and found normal. Diagnosis of myocardial injury is made with acute changes in cTn concentrations with at least one serial sample above the 99th percentile upper reference limit (URL), taken together with the patient's clinical presentation. Biotin has been reported to cause a negative bias, interpret results relative to patient's use of biotin. Lab Interpretation Normal (test code = 57265-9) [facility] NorthwestOSMOLALITY, SERUM OR [id number] 15:40:21 Test Item Value Reference Range Interpretation Comments OSMOLALITY (test code = 281 See_Comment [Au tomated message] 5432-2) The system Step-In generated this result transmitted ref erence range: 278 - 30 5 mOsm/kg. The re ference range was not u sed to interpret this result as normal/abnor mal. Lab Interpretation (test Normal code = 98770-7) [facility] Northwest[facility] METABOLIC PANEL (NA, K, CL, CO2, GLUCOSE, BUN, CREATININE, CA)2023-02-17 06:10:05 Test Item Value Reference Range Interpretation Comments NA (test code = 130 mmol/L 135-145 L 0507130324) K (test code = 4.3 mmol/L 3.5-5.0 2223870685) CL (test code = 104 mmol/L 98-108 4494987714) CO2 TOTAL (test code = 16 mmol/L 23-31 L 0624752932) AGAP (test code = 10 2-16 3250532441) BUN (test code = 23 mg/dL 7-23 1772888280) GLUCOSE (test code = 93 mg/dL 70-110 7084835585) CREATININE (test code = 1.31 mg/dL 0.50-1.04 H 9396571449) CALCIUM (test code = 8.9 mg/dL 8.6-10.6 9265481198) eGFR (test code = 43.2 mL/min/1.73m2 2894986957) AREN (test code = AREN) Association of [...] tests). Lab Interpretation Abnormal (test code = 66717-0) [facility] NorthwestFCO [id number] 04:00:12 Test Item Value Reference Range Interpretation Comments TROPONIN I (test code = <=0.034 6442938681) AREN (test code = AREN) Reference (Normal) Range (defined by the 99th percentile reference limit): <= 0.034 ng/mL Note: Cardiac troponin begins to rise 3-4 hours after the onset of ischemia. Repeat in 4-6 hours if the sample was drawn within 3-4 hours of the onset of the symptom and found normal. Diagnosis of myocardial injury is made with acute changes in cTn concentrations with at least one serial sample above the 99th percentile upper reference limit (URL), taken together with the patient's clinical presentation. Biotin has been reported to cause a negative bias, interpret results relative to patient's use of biotin. Lab Interpretation Normal (test code = 37280-2) [facility] NorthwestN-TERMINAL [id number] 04:00:12 Test Item Value Reference Range Interpretation Comments NT-proBNP (test code = 216 pg/mL <=125 H 8528678849) AREN (test code = AREN) Biotin has been reported to cause a negative bias, interpret results relative to patient's use of biotin. Lab Interpretation (test Abnormal code = 84995-5) [facility] NorthwestLIPASE2023-05-25 03:48:14 Test Item Value Reference Range Interpretation Comments LIPASE (test code = 9207693880) 143 U/L 0-220 Lab Interpretation (test code = Normal 23445-9) [facility] Northwest[facility] METABOLIC PANEL (NA, K, CL, CO2, GLUCOSE, BUN, CREATININE, CA)2023-02-17 03:48:13 Test Item Value Reference Range Interpretation Comments NA (test code = 129 mmol/L 135-145 L 9429818133) K (test code = 4.6 mmol/L 3.5-5.0 5801069378) CL (test code = 103 mmol/L 98-108 8763335000) CO2 TOTAL (test code = 18 mmol/L 23-31 L 6105990256) AGAP (test code = 8 2-16 6182761663) BUN (test code = 24 mg/dL 7-23 H 8387632928) GLUCOSE (test code = 101 mg/dL 70-110 4038788268) CREATININE (test code = 1.36 mg/dL 0.50-1.04 H 7421782049) CALCIUM (test code = 9.2 mg/dL 8.6-10.6 7155437344) eGFR (test code = 41.3 mL/min/1.73m2 3827836331) AREN (test code = AREN) Association of [...] tests). Lab Interpretation Abnormal (test code = 61066-4) [facility] NorthwestHEPATIC FUNCTION PANEL (93171) (ALB,T.PRO,BILI T,BU/BC,ALT,AST,ALK PHOS)2023-02-17 03:48:13 Test Item Value Reference Range Interpretation Comments TOTAL BILI (test code = 6582035996) 0.7 mg/dL 0.1-1.1 BILI UNCON (test code = 4383486607) 0.2 mg/dL 0.1-1.1 BILI CONJ (test code = 0157769307) 0.0 mg/dL 0.0-0.3 T PROTEIN (test code = 7828182226) 6.3 g/dL 6.3-8.2 ALBUMIN (test code = 9623163479) 3.7 g/dL 3.5-5.0 ALK PHOS (test code = 8275841467) 239 U/L 34-122 H ALTv (test code = 1742-6) 16 U/L 5-35 AST(SGOT) (test code = 7809163130) 20 U/L 13-40 Lab Interpretation (test code = Abnormal 41353-4) [facility] NorthwestD-[id number] 03:44:12 Test Item Value Reference Interpretation Comments Range D-DIMER (test code = 2.01 See_Comment H [Autom ated 9592667274) message] The system which generated this result transmitted reference range : <0.50 ?g/mL (FEU). The reference range was not used to interpret this result as normal/abnormal . AREN (test code = This test may be AREN) used in conjunction with a clinical pretest probability (PTP) assessment model to exclude venous thromboembolism (VTE) in patients suspected of deep venous thrombosis (DVT) and pulmonary embolism (PE) A D-Dimer value less than 0.50 ?g/ml (FEU) has a negative predicative value of 96 to 100% (95% CI)and 97 to 100% (95% CI) as an aid in the diagnosis of deep vein thrombosis (DVT) and pulmonary embolism when there is low or moderate pretest probability of PE or DVT. D-Dimer values are expressed in initial fibrinogen equivalent units (FEU)" The assay results should be used with other information, including the clinical context, in forming a diagnosis. Lab Interpretation Abnormal (test code = 54641-9) [facility] WITH [id number] 03:35:53 Test Item Value Reference Range Interpretation Comments WBC (test code = 8.41 See_Comment [Automated 5914-2) message] The sy stem which generated this result transmitted reference range : 4.30 - 11.10 10*3/?L. The reference range was not used to interpret this result as normal/abnormal . RBC (test code = 2.90 See_Comment L [Automated 171-8) message] The sy stem which generated this result transmitted reference range : 3.93 - 5.25 10*6/?L. The reference range was not used to interpret this result as normal/abnormal . HGB (test code = 7.6 g/dL 11.6-15.0 L 718-7) HCT (test code = 23.9 % 35.7-45.2 L 4544-3) MCV (test code = 82.4 fL 80.6-95.5 787-2) MCH (test code = 26.2 pg 25.9-32.8 785-6) MCHC (test code = 31.8 g/dL 31.6-35.1 786-4) RDW-SD (test code = 49.5 fL 39.0-49.9 03122-3) RDW-CV (test code = 16.7 % 12.0-15.5 H 788-0) PLT (test code = 445 See_Comment H [Automated 777-3) message] The sy stem which generated this result transmitted reference range : 166 - 358 10*3/ ?L. The reference r stefanie was not used to interpret this result as normal/abnormal . MPV (test code = 9.4 fL 9.5-12.9 L 66204-5) NRBC/100 WBC (test 0.0 See_Comment [Automat ed code = 9697191566) message] The system which generated this result transmitted reference range : 0.0 - 10.0 /100 WBCs. The refer ence range was not u sed to interpret th is result as normal/abnormal . NRBC x10^3 (test code See_Comment [Auto mated = 7422892056) message] The s ystem which generated this result transmitted reference range : 10*3/?L. The reference range was not used to interpret this result as normal/abnormal . GRAN MAT (NEUT) % 81.4 % (test code = 770-8) IMM GRAN % (test code 1.30 % = 0080835985) LYMPH % (test code = 9.6 % 736-9) MONO % (test code = 5.7 % 5905-5) EOS % (test code = 1.5 % 713-8) BASO % (test code = 0.5 % 706-2) GRAN MAT x10^3(ANC) 6.84 10*3/uL 1.88-7.09 (test code = 4681097965) IMM GRAN x10^3 (test 0.11 10*3/uL 0.00-0.06 H code = 4903614364) LYMPH x10^3 (test code 0.81 10*3/uL 1.32-3.29 L = 731-0) MONO x10^3 (test code 0.48 10*3/uL 0.33-0.92 = 742-7) EOS x10^3 (test code = 0.13 10*3/uL 0.03-0.39 711-2) BASO x10^3 (test code 0.04 10*3/uL 0.01-0.07 = 704-7) Lab Interpretation Abnormal (test code = 15361-2) [facility] NorthwestAFB CULTURE + SMEAR (NON-SPUTUM)2023-02-16 09:54:12 Test Item Value Reference Range Interpretation Comments CULTURE (BEAKER) (test No acid-fast bacilli code = 1095) isolated in 42 days AFB SMEAR (BEAKER) No acid fast bacilli (test code = 994) seen POCT-GLUCOSE [id number] 12:15:11 Test Item Value Reference Range Interpretation Comments POC-GLUCOSE METER 91 mg/dL 70-110 : TESTED A T [facility] 6720 (BEAKER) (test code = [facility], 1538) [address]: Security Patrol Officer/Techni waylon ID = [id number] for Trevon en (contract), Sean lancaster POCT-GLUCOSE [id number] 08:32:41 Test Item Value Reference Range Interpretation Comments POC-GLUCOSE METER 99 mg/dL 70-110 : TESTED A T [facility] 6720 (BEAKER) (test code = [facility], 1538) 00142: Security Patrol Officer/Techni waylon ID = [id number] for Trevon proctor (contract), Sean lancaster OSMOLALITY, [id number] 07:43:56 Test Item Value Reference Range Interpretation Comments OSMOLALITY, SERUM (BEAKER) (test 275 mOsm/kg 275-295 code = 615) BASIC METABOLIC [id number] 06:50:51 Test Item Value Reference Range Interpretation Comments SODIUM (BEAKER) 131 meq/L 136-145 L (test code = 381) POTASSIUM 4.0 meq/L 3.5-5.1 (BEAKER) (test code = 379) CHLORIDE (BEAKER) 102 meq/L 98-107 (test code = 382) CO2 (BEAKER) 21 meq/L 22-29 L (test code = 355) BLOOD UREA 23 mg/dL 7-21 H NITROGEN (BEAKER) (test code = 354) CREATININE 1.21 mg/dL 0.57-1.25 (BEAKER) (test code = 358) GLUCOSE RANDOM 74 mg/dL 70-105 (BEAKER) (test code = 652) CALCIUM (BEAKER) 9.0 mg/dL 8.4-10.2 (test code = 697) EGFR (BEAKER) 55 Interpretatio n of eGFR (test code = [...] not appl icable for dialysis patien ts Security Patrol Officer ID - [id number] (HEMOGRAM ONLY)2023-02-15 06:34:01 Test Item Value Reference Range Interpretation Comments WHITE BLOOD CELL COUNT (BEAKER) 5.0 K/ L 3.5-10.5 (test code = 775) RED BLOOD CELL COUNT (BEAKER) 2.50 M/ L 3.93-5.22 L (test code = 761) HEMOGLOBIN (BEAKER) (test code = 6.6 GM/DL 11.2-15.7 L 410) HEMATOCRIT (BEAKER) (test code = 20.9 % 34.1-44.9 L 411) MEAN CORPUSCULAR VOLUME (BEAKER) 84 fL 79-95 (test code = 753) MEAN CORPUSCULAR HEMOGLOBIN 26.4 pg 25.6-32.2 (BEAKER) (test code = 751) MEAN CORPUSCULAR HEMOGLOBIN CONC 31.6 GM/DL 32.2-35.5 L (BEAKER) (test code = 752) RED CELL DISTRIBUTION WIDTH 16.4 % 11.7-14.4 H (BEAKER) (test code = 412) PLATELET COUNT (BEAKER) (test 453 K/CU MM 150-450 H code = 756) MEAN PLATELET VOLUME (BEAKER) 9.9 fL 9.4-12.3 (test code = 754) NUCLEATED RED BLOOD CELLS 0 /100 WBC 0-0 (BEAKER) (test code = 413) URINALYSIS WITH MICROSCOPIC IF [id number] 03:40:39 Test Item Value Reference Range Interpretation Comments COLOR (BEAKER) (test code = 470) Light Yellow CLARITY (BEAKER) (test code = Clear 469) SPECIFIC GRAVITY UA (BEAKER) 1.017 1.001-1.035 (test code = 468) PH UA (BEAKER) (test code = 467) 6.0 5.0-8.0 PROTEIN UA (BEAKER) (test code = 20 mg/dL Negative A 464) GLUCOSE UA (BEAKER) (test code = Negative Negative 365) KETONES UA (BEAKER) (test code = Negative Negative 371) BILIRUBIN UA (BEAKER) (test code Negative Negative = 462) BLOOD UA (BEAKER) (test code = Negative Negative 461) NITRITE UA (BEAKER) (test code = Negative Negative 465) LEUKOCYTE ESTERASE UA (BEAKER) Small Negative A (test code = 466) UROBILINOGEN UA (BEAKER) (test 0.2 0.2-1.0 code = 463) SOURCE(BEAKER) (test code = 2795) Security Patrol Officer ID - [auto]Security Patrol Officer ID - techURINALYSIS [id number] 03:40:39 Test Item Value Reference Range Interpretation Comments RBC UA (BEAKER) (test code = 519) 0 /HPF WBC UA (BEAKER) (test code = 520) 6 /HPF MUCUS (BEAKER) (test code = 1574) Rare SQUAMOUS EPITHELIAL (BEAKER) (test < /HPF code = 516) HYALINE CASTS (BEAKER) (test code = 5 /LPF 514) YEAST (BEAKER) (test code = 1585) Moderate Security Patrol Officer ID - techSODIUM, RANDOM [id number] 16:59:55 Test Item Value Reference Range Interpretation Comments SODIUM URINE (BEAKER) (test code = < meq/L 243) Reference Range: No NormalsOperator ID - ADMINUREA NITROGEN, RANDOM URINE 2023-02-14 16:54:48 Test Item Value Reference Range Interpretation Comments UREA NITROGEN URINE (BEAKER) (test 351 mg/dL code = 538) Reference Range: No NormalsOperator ID - ADMINCREATININE, RANDOM [id number] 16:54:47 Test Item Value Reference Range Interpretation Comments CREATININE URINE (BEAKER) (test 56.7 mg/dL code = 375) Reference Range: No NormalsOperator ID - ADMINOSMOLALITY, [id number] 16:45:55 Test Item Value Reference Range Interpretation Comments OSMOLALITY URINE 278 mOsm/kg See_Comment [Automated message] (RHEA) (test code = The sy stem which 614) generated this result transmitted ref erence range: 50-1,200 mOsm/kg. The reference range was not used to int erpret this result as normal/abnormal . PET/CT, CARDIAC PERF REST AND [id number] 16:28:00Reason for exam:- >chronic chest pain [facility] CENTERName: LIZBET RAHMAN : 1975 Sex: FFINAL REPORT PROCEDURE: MYOCARDIAL PERFUSION PET/CT IMAGING (Rest/Stress)CPT CODE: 77761 INDICATION: Chest pain CARDIOVASCULAR PROFILE:CAD History: NoneSymptoms: Atypical chest painRisk Factors: NoneBMI: 35.8Medications: Aspirin, furosemide STRESS PROTOCOL:Pharmacologic stress was achieved with a 10-second intravenous infusion of regadenoson 0.4 mg. The radiopharmaceutical was administered 30 seconds after the start of the regadenoson infusion. IMAGING PROTOCOL:Limited low-doseCT imaging was performed for attenuation correction. 40.0 mCi of Rb-82 chloride was injected intraven ously at rest, and gated PET images were obtained. Then, 40.0 mCi of Rb-82 chloride was injected intravenously at peak stress, and gated PET images were obtained. Image quality is good. REST FINDINGS:HR: 96/minBP: 98/58 mmHgPrelim. EKG: Normal sinus rhythm.Perfusion: Normal.Wall Motion: Normal (LVEF >70%).LV Volume: Normal.RV Volume: Normal. STRESS FINDINGS:HR: 120/min (70% of MPHR)BP: 82/47 mmHgPrelim. EKG: No ischemic changes.Symptoms: Chest pressure and dyspnea (treatment not required).Perfusion: Normal.Wall Motion: Normal (LVEF >70%).LV Volume: Not significantly changed from rest. IMPRESSION:1. Probably normal study.2. Probably normal myocardial perfusion. 3. Normal resting LVEF, which do es not deteriorate with pharmacologic stress.4. Normal extracardiac tracer distribution.5. There is no prior study for comparison. Signed: Obi Pantojassm [facility] Verified Date/Time: 02/14/2023 16:28:20 POCT-GLUCOSE [id number] 16:27:58 Test Item Value Reference Range Interpretation Comments POC-GLUCOSE METER 97 mg/dL 70-110 : TESTED A T [facility]20 (Upside) (test code = [facility], 1538) 94096: Security Patrol Officer/Techni waylon ID = [id number] for SHARRIN Jay, JUSTIN POCT-GLUCOSE [id number] 12:21:51 Test Item Value Reference Range Interpretation Comments POC-GLUCOSE METER 90 mg/dL 70-110 : TESTED A T [facility] (Upside) (test code = [facility], 1538) 97981: Security Patrol Officer/Techni waylon ID = [id number] for SUNN Y, JUSTIN POCT-GLUCOSE [id number] 09:05:54 Test Item Value Reference Range Interpretation Comments POC-GLUCOSE METER 82 mg/dL 70-110 : TESTED A T [facility]20 (Upside) (test code = [facility] [place], 1538) 21809: Security Patrol Officer/Techni waylon ID = [id number] for JUSTIN BOONE BASIC METABOLIC [id number] 07:13:51 Test Item Value Reference Range Interpretation Comments SODIUM (BEAKER) 131 meq/L 136-145 L (test code = 381) POTASSIUM 4.3 meq/L 3.5-5.1 (BEAKER) (test code = 379) CHLORIDE (BEAKER) 102 meq/L 98-107 (test code = 382) CO2 (BEAKER) 18 meq/L 22-29 L (test code = 355) BLOOD UREA 23 mg/dL 7-21 H NITROGEN (BEAKER) (test code = 354) CREATININE 1.29 mg/dL 0.57-1.25 H (BEAKER) (test code = 358) GLUCOSE RANDOM 73 mg/dL 70-105 (BEAKER) (test code = 652) CALCIUM (BEAKER) 9.3 mg/dL 8.4-10.2 (test code = 697) EGFR (BEAKER) 51 Interpretatio n of eGFR (test code = [...] not appl icable for dialysis patien ts Security Patrol Officer ID - MMCBC (HEMOGRAM ONLY)2023-02-14 05:41:55 Test Item Value Reference Range Interpretation Comments WHITE BLOOD CELL COUNT 5.0 K/ L 3.5-10.5 (BEAKER) (test code = 775) RED BLOOD CELL COUNT 2.60 M/ L 3.93-5.22 L (BEAKER) (test code = 761) HEMOGLOBIN (BEAKER) 6.7 GM/DL 11.2-15.7 L (test code = 410) HEMATOCRIT (BEAKER) 21.4 % 34.1-44.9 L (test code = 411) MEAN CORPUSCULAR 82 fL 79-95 Discordant results VOLUME (BEAKER) (test compar ed to previous code = 753) results; clinic al correlation req uired MEAN CORPUSCULAR 25.8 pg 25.6-32.2 HEMOGLOBIN (BEAKER) (test code = 751) MEAN CORPUSCULAR 31.3 GM/DL 32.2-35.5 L HEMOGLOBIN CONC (BEAKER) (test code = 752) RED CELL DISTRIBUTION 16.3 % 11.7-14.4 H WIDTH (BEAKER) (test code = 412) PLATELET COUNT 464 K/CU MM 150-450 H (BEAKER) (test code = 756) MEAN PLATELET VOLUME 9.6 fL 9.4-12.3 (BEAKER) (test code = 754) NUCLEATED RED BLOOD 0 /100 WBC 0-0 CELLS (BEAKER) (test code = 413) RETICULOCYTE [id number] 05:38:19 Test Item Value Reference Range Interpretation Comments RETICULOCYTE COUNT PCT (BEAKER) (test 2.8 % 0.5-1.7 H code = 575) Security Patrol Officer ID - [id number]-GLUCOSE [id number] 22:02:01 Test Item Value Reference Range Interpretation Comments POC-GLUCOSE METER 100 mg/dL 70-110 : TESTED A T [facility] (BEAKER) (test code = [facility], 153) 26294: Security Patrol Officer/Techni waylon ID = [id number] for Layne Feliz POCT-GLUCOSE [id number] 16:50:15 Test Item Value Reference Range Interpretation Comments POC-GLUCOSE METER 123 mg/dL 70-110 H : TESTED A T [facility]20 (BEAKER) (test code = [facility], 153) 25588: Security Patrol Officer/Techni waylon ID = [id number] for Ce rmen, [place] POCT-GLUCOSE [id number] 13:32:04 Test Item Value Reference Range Interpretation Comments POC-GLUCOSE METER 109 mg/dL 70-110 : TESTED A T [facility]20 (BEAKER) (test code = [facility], 153) 60253: Security Patrol Officer/Techni waylon ID = [id number] for Ce rmen, [place] POCT-GLUCOSE [id number] 09:53:32 Test Item Value Reference Range Interpretation Comments POC-GLUCOSE METER 84 mg/dL 70-110 : TESTED A T [facility] ([facility] (test code = ROZ Gutiérrez [facility], 1538) 93935: Security Patrol Officer/Techni waylon ID = [id number] for Cerm en, Iliana POCT-GLUCOSE [id number] 09:35:47 Test Item Value Reference Range Interpretation Comments POC-GLUCOSE METER 71 mg/dL 70-110 : TESTED A T [facility] ([facility] (test code = ROZ Guti[facility]rez [facility], 1538) 55631: Security Patrol Officer/Techni waylon ID = [id number] for Cerm en, [place] HEMOGLOBIN [id number] 08:56:23 Test Item Value Reference Range Interpretation Comments HEMOGLOBIN A1C 4.7 % See_Comment [Automated m essage] ELECTROPHORESIS ([facility] The system which (test code = 3811) generated this result transmitted ref erence range: <=5.6%. The reference range was not used to int erpret this result as normal/abnormal . "The A1c is measured using a NGSP-certified method. HbA1c value equal to or greater than 6.5% as thediagnosis cutoff for diabetes. An HbA1c value of 5.7- 6.4% indicates increased risk for diabetes (prediabetes)."Security Patrol Officer ID - ADMLIPID [id number] 06:37:27 Test Item Value Reference Range Interpretation Comments TRIGLYCERIDES ([facility] 279 mg/dL Speci men slightly (test code = 540) hemolyzed CHOLESTEROL ([facility] 169 mg/dL Specime n slightly (test code = 631) hemolyzed HDL CHOLESTEROL ([facility] 58 mg/dL (test code = 976) LDL CHOLESTEROL 55 mg/dL CALCULATED ([facility] (test code = 633) Triglyceride Reference Range: Low Risk <150 Borderline 150-199 High Risk 200- 499 Very High Risk >=500Cholesterol Reference Range: Low Risk <200 Borderline 200-239 High Risk >240HDL Cholesterol Reference Range: Low Risk >=60 High Risk <40LDL Cholesterol Reference Range: Optimal <100 Near Optimal 100-129 Borderline 130-159 High 160-189 Very High >=190 Security Patrol Officer ID - MARCOPROTHROMBIN [id number] 06:37:27 Test Item Value Reference Range Interpretation Comments PROTIME (BEAKER) (test code = 15.7 seconds 11.9-14.2 H 759) INR (BEAKER) (test code = 370) 1.33 <=5.90 RECOMMENDED COUMADIN/WARFARIN INR THERAPY RANGESSTANDARD DOSE: 2.0 - 3.0 Includes: PROPHYLAXIS for venous thrombosis, systemic embolization; TREATMENT for venous thrombosis and/or pulmonary embolus.HIGH RISK: Target INR is 2.5-3.5 for patients with mechanical heart valves.BASIC METABOLIC [id number] 06:37:26 Test Item Value Reference Range Interpretation Comments SODIUM (BEAKER) 131 meq/L 136-145 L (test code = 381) POTASSIUM 5.2 meq/L 3.5-5.1 H Specimen slight ly (BEAKER) (test hemolyzed code = 379) CHLORIDE (BEAKER) 99 meq/L 98-107 (test code = 382) CO2 (BEAKER) 19 meq/L 22-29 L (test code = 355) BLOOD UREA 22 mg/dL 7-21 H NITROGEN (BEAKER) (test code = 354) CREATININE 1.29 mg/dL 0.57-1.25 H Specimen slight ly (BEAKER) (test hemolyzed code = 358) GLUCOSE RANDOM 53 mg/dL 70-105 L (BEAKER) (test code = 652) CALCIUM (BEAKER) 8.9 mg/dL 8.4-10.2 (test code = 697) EGFR (BEAKER) 51 Interpretatio n of eGFR (test code = [...] not appl icable for dialysis patien ts Security Patrol Officer ID - MARCOCBC (HEMOGRAM ONLY)2023-02-13 06:23:04 Test Item Value Reference Range Interpretation Comments WHITE BLOOD CELL COUNT 5.8 K/ L 3.5-10.5 (BEAKER) (test code = 775) RED BLOOD CELL COUNT 2.58 M/ L 3.93-5.22 L (BEAKER) (test code = 761) HEMOGLOBIN (BEAKER) 6.7 GM/DL 11.2-15.7 L (test code = 410) HEMATOCRIT (BEAKER) 22.2 % 34.1-44.9 L (test code = 411) MEAN CORPUSCULAR 86 fL 79-95 Discordant results VOLUME (BEAKER) (test compar ed to previous code = 753) results; clinic al correlation req uired MEAN CORPUSCULAR 26.0 pg 25.6-32.2 HEMOGLOBIN (BEAKER) (test code = 751) MEAN CORPUSCULAR 30.2 GM/DL 32.2-35.5 L HEMOGLOBIN CONC (BEAKER) (test code = 752) RED CELL DISTRIBUTION 16.1 % 11.7-14.4 H WIDTH (BEAKER) (test code = 412) PLATELET COUNT 469 K/CU MM 150-450 H (BEAKER) (test code = 756) MEAN PLATELET VOLUME 10.8 fL 9.4-12.3 (BEAKER) (test code = 754) NUCLEATED RED BLOOD 0 /100 WBC 0-0 CELLS (BEAKER) (test code = 413) RETICULOCYTE [id number] 06:20:29 Test Item Value Reference Range Interpretation Comments RETICULOCYTE COUNT PCT (BEAKER) (test 3.0 % 0.5-1.7 H code = 575) Security Patrol Officer ID - 6000POCT-GLUCOSE [id number] 21:33:00 Test Item Value Reference Range Interpretation Comments POC-GLUCOSE METER 97 mg/dL 70-110 : TESTED A T [facility] (BEAKER) (test code = [facility], 1538) 33759: Security Patrol Officer/Techni waylon ID = [id number] for Zuleika yin (contract)Marquiste POCT-GLUCOSE [id number] 17:55:30 Test Item Value Reference Range Interpretation Comments POC-GLUCOSE METER 92 mg/dL 70-110 : TESTED A T [facility]20 (BEAKER) (test code = [facility], 1538) 36375: Security Patrol Officer/Techni waylon ID = [id number] for SREE HERR POCT-GLUCOSE [id number] 12:08:19 Test Item Value Reference Range Interpretation Comments POC-GLUCOSE METER 98 mg/dL 70-110 : TESTED A T [facility] 6720 (BEAKER) (test code = ROZ R [facility], 1538) 97343: Security Patrol Officer/Techni waylon ID = [id number] for SREE HERR POCT-GLUCOSE [id number] 09:08:40 Test Item Value Reference Range Interpretation Comments POC-GLUCOSE METER 82 mg/dL 70-110 : Notified RN/MD: TESTED (BEAKER) (test code = AT [facility] 67[address] [facility] 1538) [facility], 770 30: Security Patrol Officer/Techni waylon ID = [id number] for SREE HERR BASIC METABOLIC [id number] 07:41:15 Test Item Value Reference Range Interpretation Comments SODIUM (BEAKER) 131 meq/L 136-145 L (test code = 381) POTASSIUM 5.0 meq/L 3.5-5.1 (BEAKER) (test code = 379) CHLORIDE (BEAKER) 100 meq/L 98-107 (test code = 382) CO2 (BEAKER) 20 meq/L 22-29 L (test code = 355) BLOOD UREA 20 mg/dL 7-21 NITROGEN (BEAKER) (test code = 354) CREATININE 1.21 mg/dL 0.57-1.25 (BEAKER) (test code = 358) GLUCOSE RANDOM 69 mg/dL 70-105 L (BEAKER) (test code = 652) CALCIUM (BEAKER) 9.1 mg/dL 8.4-10.2 (test code = 697) EGFR (BEAKER) 55 Interpretatio n of eGFR (test code = [...] not appl icable for dialysis patien ts Security Patrol Officer ID - [id number] 07:41:15 Test Item Value Reference Range Interpretation Comments LIPASE (BEAKER) (test code = 749) 30 U/L 8-78 Security Patrol Officer ID - MARCORETICULOCYTE [id number] 06:45:55 Test Item Value Reference Range Interpretation Comments RETICULOCYTE COUNT PCT (BEAKER) (test 2.7 % 0.5-1.7 H code = 575) Security Patrol Officer ID - [id number] (HEMOGRAM ONLY)2023-02-12 06:45:54 Test Item Value Reference Range Interpretation Comments WHITE BLOOD CELL COUNT (BEAKER) 6.0 K/ L 3.5-10.5 (test code = 775) RED BLOOD CELL COUNT (BEAKER) 2.67 M/ L 3.93-5.22 L (test code = 761) HEMOGLOBIN (BEAKER) (test code = 6.8 GM/DL 11.2-15.7 L 410) HEMATOCRIT (BEAKER) (test code = 21.9 % 34.1-44.9 L 411) MEAN CORPUSCULAR VOLUME (BEAKER) 82 fL 79-95 (test code = 753) MEAN CORPUSCULAR HEMOGLOBIN 25.5 pg 25.6-32.2 L (BEAKER) (test code = 751) MEAN CORPUSCULAR HEMOGLOBIN CONC 31.1 GM/DL 32.2-35.5 L (BEAKER) (test code = 752) RED CELL DISTRIBUTION WIDTH 16.4 % 11.7-14.4 H (BEAKER) (test code = 412) PLATELET COUNT (BEAKER) (test 449 K/CU MM 150-450 code = 756) MEAN PLATELET VOLUME (BEAKER) 9.7 fL 9.4-12.3 (test code = 754) NUCLEATED RED BLOOD CELLS 0 /100 WBC 0-0 (BEAKER) (test code = 413) BLOOD [id number] 06:44:00 Test Item Value Reference Range Interpretation Comments Culture Observations (test NO GROWTH AFTER 5 code = COB1) DAYS BLOOD [id number] 06:44:00 Test Item Value Reference Range Interpretation Comments Culture Observations (test NO GROWTH AFTER 5 code = COB1) DAYS BLOOD GAS, [id number] 05:47:10 Test Item Value Reference Range Interpretation Comments PH VENOUS (BEAKER) (test code = 7.34 7.32-7.42 701) PCO2 VENOUS (BEAKER) (test code = 44 mm Hg 41-51 755) PO2 VENOUS (BEAKER) (test code = 29 mm Hg 25-40 702) O2 SATURATION VENOUS (BEAKER) 51.0 % 40.0-70.0 (test code = 703) HCO3 VENOUS (BEAKER) (test code = 23 mmol/L 21-29 705) BASE EXCESS VENOUS (BEAKER) (test -2.9 mmol/L -2.0-3.0 L code = 704) PATIENT TEMPERATURE (BEAKER) 37.0 (test code = 1818) FIO2 (BEAKER) (test code = 1819) 21.0 POCT-GLUCOSE [id number] 21:39:09 Test Item Value Reference Range Interpretation Comments POC-GLUCOSE METER 96 mg/dL 70-110 : TESTED A T [facility] 6720 (BEAKER) (test code = [facility]) 15102: Security Patrol Officer/Techni waylon ID = [id number] for Darline winter (contract), [place] tin POCT-GLUCOSE [id number] 15:52:00 Test Item Value Reference Range Interpretation Comments POC-GLUCOSE METER 95 mg/dL 70-110 : TESTED A T [facility] 6720 (BEAKER) (test code = [facility], 153) 29754: Security Patrol Officer/Techni waylon ID = [id number] for Trevon proctor (contract), Son tonny POCT-GLUCOSE [id number] 11:53:37 Test Item Value Reference Range Interpretation Comments POC-GLUCOSE METER 104 mg/dL 70-110 : TESTED A T [facility]20 (BEAKER) (test code = [facility], 153) 47279: Security Patrol Officer/Techni waylon ID = [id number] for Marleni bess (contract), Son ja POCT-GLUCOSE [id number] 08:07:33 Test Item Value Reference Range Interpretation Comments POC-GLUCOSE METER 85 mg/dL 70-110 : TESTED A T [facility] 6720 (BEAKER) (test code = [facility], 153) 65614: Security Patrol Officer/Techni waylon ID = [id number] for Trevon proctor (contract), Sean ja INCUBATED 1:1 MIXING [id number] 07:27:12 Test Item Value Reference Range Interpretation Comments IMMEDIATE PT (BEAKER) 15.9 seconds 11.7-14.7 H (test code = 1487) IMMEDIATE PTT 37.7 seconds 22.5-36.0 H (BEAKER) (test code = 1488) IMMEDIATE 1:1 MIX PT 14.4 seconds 11.7-14.7 (BEAKER) (test code = 4427370172) IMMEDIATE 1:1 MIX PTT 32.7 seconds 22.5-36.0 (BEAKER) (test code = 9486783882) MIXING STUDY Prolonged PT and PATHOLOGIST PTT with complete INTERPRETATION correction (BEAKER) (test code = suggestive of [id number]) factor deficiency. [id number] Lynette (BEAKER) (test code = Marifer yRder 2608) 1:1 MIX, 1 HOUR INC 14.1 seconds This is an PT (BEAKER) (test appended r eport. code = 1501) These results have been appended to a previously stefano l verified report . 1:1 MIX, 1 HOUR INC 35.4 seconds This is an PTT (BEAKER) (test appended report. code = 1502) These results have been appended to a previously stefano l verified report . HIGH SENSITIVITY TROPONIN [id number] 03:27:38 Test Item Value Reference Range Interpretation Comments HIGH SENSITIVITY TROPONIN I (test 16 pg/ml <=17 code = 7528712) Security Patrol Officer ID - ADMINThe COOKING TEACHER STAT High Sensitivity Troponin-I results should be used in conjunction with other diagnostic information such as ECG, clinical observations and information, and patientsymptoms to aid in the diagnosis of SD. BASIC METABOLIC [id number] 02:01:49 Test Item Value Reference Range Interpretation Comments SODIUM (BEAKER) 131 meq/L 136-145 L (test code = 381) POTASSIUM 5.1 meq/L 3.5-5.1 (BEAKER) (test code = 379) CHLORIDE (BEAKER) 101 meq/L 98-107 (test code = 382) CO2 (BEAKER) 19 meq/L 22-29 L (test code = 355) BLOOD UREA 17 mg/dL 7-21 NITROGEN (BEAKER) (test code = 354) CREATININE 1.07 mg/dL 0.57-1.25 (BEAKER) (test code = 358) GLUCOSE RANDOM 77 mg/dL 70-105 (BEAKER) (test code = 652) CALCIUM (BEAKER) 8.9 mg/dL 8.4-10.2 (test code = 697) EGFR (BEAKER) 64 Interpretatio n of eGFR (test code = [...] not appl icable for dialysis patien ts Security Patrol Officer ID - ADMINCBC (HEMOGRAM ONLY)2023-02-11 01:36:32 Test Item Value Reference Range Interpretation Comments WHITE BLOOD CELL COUNT (BEAKER) 6.1 K/ L 3.5-10.5 (test code = 775) RED BLOOD CELL COUNT (BEAKER) 2.69 M/ L 3.93-5.22 L (test code = 761) HEMOGLOBIN (BEAKER) (test code = 6.9 GM/DL 11.2-15.7 L 410) HEMATOCRIT (BEAKER) (test code = 22.1 % 34.1-44.9 L 411) MEAN CORPUSCULAR VOLUME (BEAKER) 82 fL 79-95 (test code = 753) MEAN CORPUSCULAR HEMOGLOBIN 25.7 pg 25.6-32.2 (BEAKER) (test code = 751) MEAN CORPUSCULAR HEMOGLOBIN CONC 31.2 GM/DL 32.2-35.5 L (BEAKER) (test code = 752) RED CELL DISTRIBUTION WIDTH 16.5 % 11.7-14.4 H (BEAKER) (test code = 412) PLATELET COUNT (BEAKER) (test 452 K/CU MM 150-450 H code = 756) MEAN PLATELET VOLUME (BEAKER) 9.4 fL 9.4-12.3 (test code = 754) NUCLEATED RED BLOOD CELLS 0 /100 WBC 0-0 (BEAKER) (test code = 413) POCT-GLUCOSE [id number] 19:58:20 Test Item Value Reference Range Interpretation Comments POC-GLUCOSE METER 104 mg/dL 70-110 : TESTED A T [facility] 6720 (RHEA) (test code = [facility] [place], 1538) 92090: Security Patrol Officer/Techni waylon ID = [id number] for Pe rkins (contract), Mathew hall RAD, CHEST, 1 VIEW, NON [id number] 16:24:00Reason for exam:->Chest painShould this be performed at the bedside?->Yes [facility] : 1975 Sex: FFINAL REPORT EXAM: Chest one view COMPARISON: February 08, 2023 CLINICAL HISTORY: Chest pain FINDINGS: Mild elevation the right hemidiaphragm is noted. There is interval resolution of the subsegmental atelectasis of the right midlung. The cardiac size is within normal limits. There isno evidence of pleural effusion or pneumothorax. The regional osseous structures are unremarkable. Signed: Yasmani [place] Verified Date/Time: 02/10/2023 16:24:35 -GLUCOSE [id number] 16:04:14 Test Item Value Reference Range Interpretation Comments POC-GLUCOSE METER 115 mg/dL 70-110 H : TESTED A T [facility] 6720 (BEAKER) (test code = [facility], 1538) 91426: Security Patrol Officer/Techni waylon ID = [id number] for Marleni bess (contract), Sean [place] POCT-GLUCOSE [id number] 12:08:06 Test Item Value Reference Range Interpretation Comments POC-GLUCOSE METER 99 mg/dL 70-110 : TESTED A T [facility] 6720 (BEAKER) (test code = [facility], 1538) 48628: Security Patrol Officer/Techni waylon ID = [id number] for Trevon proctor (contract), Sean [place] [id number] 10:48:19 Test Item Value Reference Range Interpretation Comments HAPTOGLOBIN (BEAKER) (test code = 255 mg/dL 14-258 366) Security Patrol Officer ID - ADMINPOCT-GLUCOSE [id number] 08:00:05 Test Item Value Reference Range Interpretation Comments POC-GLUCOSE METER 109 mg/dL 70-110 : TESTED A T [facility]20 (BEAKER) (test code = [facility], 153) 57434: Security Patrol Officer/Techni waylon ID = [id number] for Marleni bess (contract), Sean [place] LACTATE DEHYDROGENASE (LDH)2023-02-10 07:41:26 Test Item Value Reference Range Interpretation Comments LACTATE DEHYDROGENASE (BEAKER) (test 322 U/L 125-220 H code = 635) Security Patrol Officer ID - ADMINBASIC METABOLIC [id number] 07:41:25 Test Item Value Reference Range Interpretation Comments SODIUM (BEAKER) 134 meq/L 136-145 L (test code = 381) POTASSIUM 5.2 meq/L 3.5-5.1 H (BEAKER) (test code = 379) CHLORIDE (BEAKER) 102 meq/L 98-107 (test code = 382) CO2 (BEAKER) 21 meq/L 22-29 L (test code = 355) BLOOD UREA 17 mg/dL 7-21 NITROGEN (BEAKER) (test code = 354) CREATININE 1.06 mg/dL 0.57-1.25 (BEAKER) (test code = 358) GLUCOSE RANDOM 72 mg/dL 70-105 (BEAKER) (test code = 652) CALCIUM (BEAKER) 9.1 mg/dL 8.4-10.2 (test code = 697) EGFR (BEAKER) 64 Interpretatio n of eGFR (test code = [...] not appl icable for dialysis patien ts Security Patrol Officer ID - ADMINBLOOD GAS, [id number] 07:02:24 Test Item Value Reference Range Interpretation Comments PH VENOUS (BEAKER) (test code = 7.26 7.32-7.42 L 701) PCO2 VENOUS (BEAKER) (test code = 55 mm Hg 41-51 H 755) PO2 VENOUS (BEAKER) (test code = 29 mm Hg 25-40 702) O2 SATURATION VENOUS (BEAKER) 45.9 % 40.0-70.0 (test code = 703) HCO3 VENOUS (BEAKER) (test code = 24 mmol/L 21-29 705) BASE EXCESS VENOUS (BEAKER) (test -3.1 mmol/L -2.0-3.0 L code = 704) PATIENT TEMPERATURE (BEAKER) 37.0 (test code = 1818) FIO2 (BEAKER) (test code = 1819) 21.0 RETICULOCYTE [id number] 06:42:31 Test Item Value Reference Range Interpretation Comments RETICULOCYTE COUNT PCT (BEAKER) (test 2.5 % 0.5-1.7 H code = 575) [employer] Patrol Officer ID - [id number] W/PLT COUNT & AUTO [id number] 06:42:31 Test Item Value Reference Range Interpretation Comments WHITE BLOOD CELL COUNT (BEAKER) 7.1 K/ L 3.5-10.5 (test code = 775) RED BLOOD CELL COUNT (BEAKER) 2.83 M/ L 3.93-5.22 L (test code = 761) HEMOGLOBIN (BEAKER) (test code = 7.3 GM/DL 11.2-15.7 L 410) HEMATOCRIT (BEAKER) (test code = 23.7 % 34.1-44.9 L 411) MEAN CORPUSCULAR VOLUME (BEAKER) 84 fL 79-95 (test code = 753) MEAN CORPUSCULAR HEMOGLOBIN 25.8 pg 25.6-32.2 (BEAKER) (test code = 751) MEAN CORPUSCULAR HEMOGLOBIN CONC 30.8 GM/DL 32.2-35.5 L (BEAKER) (test code = 752) RED CELL DISTRIBUTION WIDTH 16.6 % 11.7-14.4 H (BEAKER) (test code = 412) PLATELET COUNT (BEAKER) (test 461 K/CU MM 150-450 H code = 756) MEAN PLATELET VOLUME (BEAKER) 9.7 fL 9.4-12.3 (test code = 754) NUCLEATED RED BLOOD CELLS 0 /100 WBC 0-0 (BEAKER) (test code = 413) NEUTROPHILS RELATIVE PERCENT 75 % (BEAKER) (test code = 429) LYMPHOCYTES RELATIVE PERCENT 16 % (BEAKER) (test code = 430) MONOCYTES RELATIVE PERCENT 6 % (BEAKER) (test code = 431) EOSINOPHILS RELATIVE PERCENT 1 % (BEAKER) (test code = 432) BASOPHILS RELATIVE PERCENT 0 % (BEAKER) (test code = 437) NEUTROPHILS ABSOLUTE COUNT 5.28 K/ L 1.56-6.13 (BEAKER) (test code = 670) LYMPHOCYTES ABSOLUTE COUNT 1.11 K/ L 1.18-3.74 L (BEAKER) (test code = 414) MONOCYTES ABSOLUTE COUNT (BEAKER) 0.43 K/ L 0.24-0.36 H (test code = 415) EOSINOPHILS ABSOLUTE COUNT 0.05 K/ L 0.04-0.36 (BEAKER) (test code = 416) BASOPHILS ABSOLUTE COUNT (BEAKER) 0.03 K/ L 0.01-0.08 (test code = 417) IMMATURE GRANULOCYTES-RELATIVE 2.50 % 0.00-1.00 H PERCENT (BEAKER) (test code = 2801) HIGH SENSITIVITY TROPONIN [id number] 22:51:34 Test Item Value Reference Range Interpretation Comments HIGH SENSITIVITY TROPONIN I (test 20 pg/ml <=17 H code = 2879853) Security Patrol Officer ID - ADMINThe COOKING TEACHER STAT High Sensitivity Troponin-I results should be used in conjunction with other diagnostic information such as ECG, clinical observations and information, and patientsymptoms to aid in the diagnosis of SD. RETICULOCYTE [id number] 22:23:10 Test Item Value Reference Range Interpretation Comments RETICULOCYTE COUNT PCT (BEAKER) (test 2.5 % 0.5-1.7 H code = 575) Security Patrol Officer ID - [id number]-GLUCOSE [id number] 21:44:14 Test Item Value Reference Range Interpretation Comments POC-GLUCOSE METER 119 mg/dL 70-110 H : TESTED A T [facility] 6720 (BEAKER) (test code = [facility], 1538) 46176: Security Patrol Officer/Techni waylon ID = [id number] for Sa varghese (contract), Aus tin LACTATE DEHYDROGENASE (LDH)2023-02-09 18:30:36 Test Item Value Reference Range Interpretation Comments LACTATE DEHYDROGENASE (BEAKER) (test 488 U/L 125-220 H code = 635) Security Patrol Officer ID - BSPOCT-GLUCOSE [id number] 17:15:56 Test Item Value Reference Range Interpretation Comments POC-GLUCOSE METER 132 mg/dL 70-110 H : TESTED A T [facility] 6720 (BEAKER) (test code = [facility], 1538) 95383: Security Patrol Officer/Techni waylon ID = [id number] for HI DALGO, AGLAE POCT-GLUCOSE [id number] 12:14:51 Test Item Value Reference Range Interpretation Comments POC-GLUCOSE METER 83 mg/dL 70-110 : TESTED A T [facility] 6720 (BEAKER) (test code = [facility], 1538) 45121: Security Patrol Officer/Techni waylon ID = [id number] for HIDA LGO, AGLAE POCT-GLUCOSE [id number] 08:14:53 Test Item Value Reference Range Interpretation Comments POC-GLUCOSE METER 74 mg/dL 70-110 : TESTED A T [facility] 6720 (BEAKER) (test code = [facility], 1538) 71632: Security Patrol Officer/Techni waylon ID = [id number] for HIDA LGO, AGLAE COMPREHENSIVE METABOLIC [id number] 06:54:13 Test Item Value Reference Range Interpretation Comments TOTAL PROTEIN 5.8 gm/dL 6.0-8.3 L (BEAKER) (test code = 770) ALBUMIN (BEAKER) 3.1 g/dL 3.5-5.0 L (test code = 1145) ALKALINE 249 U/L 40-150 H PHOSPHATASE (BEAKER) (test code = 346) BILIRUBIN TOTAL 0.5 mg/dL 0.2-1.2 (BEAKER) (test code = 377) SODIUM (BEAKER) 134 meq/L 136-145 L (test code = 381) POTASSIUM (BEAKER) 4.8 meq/L 3.5-5.1 (test code = 379) CHLORIDE (BEAKER) 102 meq/L 98-107 (test code = 382) CO2 (BEAKER) (test 21 meq/L 22-29 L code = 355) BLOOD UREA 15 mg/dL 7-21 NITROGEN (BEAKER) (test code = 354) CREATININE 0.90 mg/dL 0.57-1.25 (BEAKER) (test code = 358) GLUCOSE RANDOM 70 mg/dL 70-105 (BEAKER) (test code = 652) CALCIUM (BEAKER) 8.8 mg/dL 8.4-10.2 (test code = 697) AST (SGOT) 14 U/L 5-34 (BEAKER) (test code = 353) ALT (SGPT) 10 U/L 6-55 (BEAKER) (test code = 347) EGFR (BEAKER) 78 Interpretatio n of eGFR (test code = [...] not appl icable for dialysis patien ts Security Patrol Officer ID - NEELAM WC (HEMOGRAM ONLY)2023-02-09 06:23:06 Test Item Value Reference Range Interpretation Comments WHITE BLOOD CELL COUNT (BEAKER) 7.2 K/ L 3.5-10.5 (test code = 775) RED BLOOD CELL COUNT (BEAKER) 2.53 M/ L 3.93-5.22 L (test code = 761) HEMOGLOBIN (BEAKER) (test code = 6.5 GM/DL 11.2-15.7 L 410) HEMATOCRIT (BEAKER) (test code = 21.4 % 34.1-44.9 L 411) MEAN CORPUSCULAR VOLUME (BEAKER) 85 fL 79-95 (test code = 753) MEAN CORPUSCULAR HEMOGLOBIN 25.7 pg 25.6-32.2 (BEAKER) (test code = 751) MEAN CORPUSCULAR HEMOGLOBIN CONC 30.4 GM/DL 32.2-35.5 L (BEAKER) (test code = 752) RED CELL DISTRIBUTION WIDTH 16.9 % 11.7-14.4 H (BEAKER) (test code = 412) PLATELET COUNT (BEAKER) (test 431 K/CU MM 150-450 code = 756) MEAN PLATELET VOLUME (BEAKER) 9.9 fL 9.4-12.3 (test code = 754) NUCLEATED RED BLOOD CELLS 0 /100 WBC 0-0 (BEAKER) (test code = 413) POCT-GLUCOSE [id number] 21:04:59 Test Item Value Reference Range Interpretation Comments POC-GLUCOSE METER 81 mg/dL 70-110 : TESTED A T [facility] 6720 ([facility] (test code = [facility], 153) 92634: Security Patrol Officer/Techni waylon ID = [id number] for Kalyani hampton (contract)Malick POCT-GLUCOSE [id number] 16:23:52 Test Item Value Reference Range Interpretation Comments POC-GLUCOSE METER 100 mg/dL 70-110 : TESTED A T [facility] 6720 (BEAKER) (test code = [facility], 153) 27986: Security Patrol Officer/Techni waylon ID = [id number] for Devora Hidalgo POCT-GLUCOSE [id number] 13:43:33 Test Item Value Reference Range Interpretation Comments POC-GLUCOSE METER 97 mg/dL 70-110 : TESTED A T [facility] 6720 (BEAKER) (test code = [facility], 153) 27432: Security Patrol Officer/Techni waylon ID = [id number] for Devora Banks RAD, CHEST, 1 VIEW, NON [id number] 12:42:00Reason for exam:->pulm edemaShould this be performed at the bedside?->Yes [facility] 1975 Sex: FFINAL REPORT CLINICAL HISTORY: pulm edema TECHNIQUE: 1 view of the chest. COMPARISON: 01/24/2023 IMPRESSION: Left central line removal. Left greater than right mid and lower lung opacities have slightly decreased. No significant pleural fluid. The cardiomediastinal silhouette is magnified by technique. Signed: Tarun Lopez Verified Date/Time: 02/08/2023 12:42:14 Electron ically signed by: TARUN LOPEZ M.D. on 02/08/2023 12:42 PMPOCT-GLUCOSE METER 2023-02-08 09:58:38 Test Item Value Reference Range Interpretation Comments POC-GLUCOSE METER 82 mg/dL 70-110 : TESTED A T [facility] 6720 (BEAKER) (test code = [facility], 1538) 85084: Security Patrol Officer/Techni waylon ID = [id number] for Devora Banks COMPREHENSIVE METABOLIC [id number] 04:28:22 Test Item Value Reference Range Interpretation Comments TOTAL PROTEIN 6.0 gm/dL 6.0-8.3 (BEAKER) (test code = 770) ALBUMIN (BEAKER) 3.3 g/dL 3.5-5.0 L (test code = 1145) ALKALINE 244 U/L 40-150 H PHOSPHATASE (BEAKER) (test code = 346) BILIRUBIN TOTAL 0.5 mg/dL 0.2-1.2 (BEAKER) (test code = 377) SODIUM (BEAKER) 134 meq/L 136-145 L (test code = 381) POTASSIUM (BEAKER) 4.7 meq/L 3.5-5.1 (test code = 379) CHLORIDE (BEAKER) 102 meq/L 98-107 (test code = 382) CO2 (BEAKER) (test 21 meq/L 22-29 L code = 355) BLOOD UREA 19 mg/dL 7-21 NITROGEN (BEAKER) (test code = 354) CREATININE 0.96 mg/dL 0.57-1.25 (BEAKER) (test code = 358) GLUCOSE RANDOM 72 mg/dL 70-105 (BEAKER) (test code = 652) CALCIUM (BEAKER) 9.0 mg/dL 8.4-10.2 (test code = 697) AST (SGOT) 10 U/L 5-34 (BEAKER) (test code = 353) ALT (SGPT) 11 U/L 6-55 (BEAKER) (test code = 347) EGFR (BEAKER) 73 Interpretatio n of eGFR (test code = [...] not appl icable for dialysis patien ts Security Patrol Officer DORIAN Jonathan RICHTER [facility] (HEMOGRAM ONLY)2023-02-08 03:53:45 Test Item Value Reference Range Interpretation Comments WHITE BLOOD CELL COUNT (BEAKER) 8.7 K/ L 3.5-10.5 (test code = 775) RED BLOOD CELL COUNT (BEAKER) 2.93 M/ L 3.93-5.22 L (test code = 761) HEMOGLOBIN (BEAKER) (test code = 7.4 GM/DL 11.2-15.7 L 410) HEMATOCRIT (BEAKER) (test code = 24.2 % 34.1-44.9 L 411) MEAN CORPUSCULAR VOLUME (BEAKER) 83 fL 79-95 (test code = 753) MEAN CORPUSCULAR HEMOGLOBIN 25.3 pg 25.6-32.2 L (BEAKER) (test code = 751) MEAN CORPUSCULAR HEMOGLOBIN CONC 30.6 GM/DL 32.2-35.5 L (BEAKER) (test code = 752) RED CELL DISTRIBUTION WIDTH 16.9 % 11.7-14.4 H (BEAKER) (test code = 412) PLATELET COUNT (BEAKER) (test 439 K/CU MM 150-450 code = 756) MEAN PLATELET VOLUME (BEAKER) 9.4 fL 9.4-12.3 (test code = 754) NUCLEATED RED BLOOD CELLS 0 /100 WBC 0-0 (BEAKER) (test code = 413) POCT-GLUCOSE [id number] 20:17:35 Test Item Value Reference Range Interpretation Comments POC-GLUCOSE METER 134 mg/dL 70-110 H : TESTED A T [facility] 6720 ([facility] (test code = [facility], [facility]) 97688: Security Patrol Officer/Techni waylon ID = [id number] for Jaspal anthony (contract), Mathew teira POCT-GLUCOSE [id number] 16:37:59 Test Item Value Reference Range Interpretation Comments POC-GLUCOSE METER 94 mg/dL 70-110 : TESTED A T [facility] 6720 (BEAKER) (test code = [facility], [facility]) 84585: Security Patrol Officer/Techni waylon ID = [id number] for Sadi as ([facility]), Shewanna POCT-GLUCOSE [id number] 12:02:40 Test Item Value Reference Range Interpretation Comments POC-GLUCOSE METER 86 mg/dL 70-110 : TESTED A T [facility] 6720 (BEAKER) (test code = [facility], 153) 36668: Security Patrol Officer/Techni waylon ID = [id number] for Sadi as ([facility]), Shewanna POCT-GLUCOSE [id number] 09:22:13 Test Item Value Reference Range Interpretation Comments POC-GLUCOSE METER 90 mg/dL 70-110 : TESTED A T [facility] 6720 (BEAKER) (test code = [facility], 153) 15467: Security Patrol Officer/Techni waylon ID = [id number] for Kathy castillo (contract), Set h Comprehensive metabolic [id number] 06:04:34 Test Item Value Reference Range Interpretation Comments Protein, Total (test 5.9 See_Comment L [Autom ated message] code = 2885-2) The system [facility] generated this result transmit tomy reference range : 6.0 - 8.3 gm/dL. Th e reference range was not used to interpret this result as normal/abnormal . Albumin (test code = 3.2 g/dL 3.5-5.0 L 62225-9) Alkaline Phosphatase 227 U/L 40-150 H (test code = 6768-6) Total Bilirubin (test 0.6 mg/dL 0.2-1.2 code = 1975-2) Sodium (test code = 133 meq/L 136-145 L 2951-2) Potassium (test code 4.3 meq/L 3.5-5.1 = 2823-3) Chloride (test code = 101 meq/L 98-107 2075-0) CO2 (test code = 19 meq/L 22-29 L 8-9) BUN (test code = 21 mg/dL 7-21 3094-0) Creatinine (test code 0.99 mg/dL 0.57-1.25 = 2160-0) Glucose (test code = 75 mg/dL 70-105 2345-7) Calcium (test code = 8.9 mg/dL 8.4-10.2 21559-4) AST (test code = 10 U/L 5-34 1920-8) ALT (test code = 10 U/L 6-55 1742-6) EGFR (test code = 70 mL/min/1[place]73 [place] [address]-8) m eGFR values Sta ge Description Res ult G1 Normal or hi gh >=90 G2 Mildly decreased 60-89 G3a Mildly to moder ately 45-59 G3b Moder ately to severely 30- 44 G4 Severly decreas ed 15-29 G5 Kidney failure <15Repo rted eGFR is based o n the CKD-EPI 2020 equation that d oes not use a race coefficient Estimated GFR i s not as accurate as Creatinine Katelyn lovett in predicting glomerular filtration rate . Estimated GFR i s not applicable for dialysis patien ts AREN (test code = AREN) Security Patrol Officer ID - NEELAM Hood Lab Interpretation Abnormal (test code = 52275-4) [facility] Test Item Value Reference Range Interpretation Comments Magnesium (test code = 1.6 mg/dL 1.6-2.6 86854-0) AREN (test code = AREN) Security Patrol Officer ID - NEELAM W Lab Interpretation (test Normal code = 28508-9) [facility] 06:04:34 Test Item Value Reference Range Interpretation Comments Phosphorus (test code = 5.7 mg/dL 2.3-4.7 H 2777-1) AREN (test code = AREN) Security Patrol Officer ID - NEELAM W Lab Interpretation (test Abnormal code = 66758-3) [facility] [id number] 06:04:34 Test Item Value Reference Range Interpretation Comments TOTAL PROTEIN 5.9 gm/dL 6.0-8.3 L (BEAKER) (test code = 770) ALBUMIN (BEAKER) 3.2 g/dL 3.5-5.0 L (test code = 1145) ALKALINE 227 U/L 40-150 H PHOSPHATASE (BEAKER) (test code = 346) BILIRUBIN TOTAL 0.6 mg/dL 0.2-1.2 (BEAKER) (test code = 377) SODIUM (BEAKER) 133 meq/L 136-145 L (test code = 381) POTASSIUM (BEAKER) 4.3 meq/L 3.5-5.1 (test code = 379) CHLORIDE (BEAKER) 101 meq/L 98-107 (test code = 382) CO2 (BEAKER) (test 19 meq/L 22-29 L code = 355) BLOOD UREA 21 mg/dL 7-21 NITROGEN (BEAKER) (test code = 354) CREATININE 0.99 mg/dL 0.57-1.25 (BEAKER) (test code = 358) GLUCOSE RANDOM 75 mg/dL 70-105 (BEAKER) (test code = 652) CALCIUM (BEAKER) 8.9 mg/dL 8.4-10.2 (test code = 697) AST (SGOT) 10 U/L 5-34 (BEAKER) (test code = 353) ALT (SGPT) 10 U/L 6-55 (BEAKER) (test code = 347) EGFR (BEAKER) 70 Interpretatio n of eGFR (test code = [...] not appl icable for dialysis patien ts Security Patrol Officer ID - NEELAM [id number] 06:04:34 Test Item Value Reference Range Interpretation Comments MAGNESIUM (BEAKER) (test code = 1.6 mg/dL 1.6-2.6 627) Security Patrol Officer ID Jonathan RICHTER [id number] 06:04:34 Test Item Value Reference Range Interpretation Comments PHOSPHORUS (BEAKER) (test code = 5.7 mg/dL 2.3-4.7 H 604) Security Patrol Officer ID Jonathan RICHTER WPT/[id number] 05:37:39 Test Item Value Reference Range Interpretation Comments PROTIME (BEAKER) (test code = 15.0 seconds 11.9-14.2 H 759) INR (BEAKER) (test code = 370) 1.26 <=5.90 PARTIAL THROMBOPLASTIN TIME 45.2 seconds 22.5-36.0 H (BEAKER) (test code = 760) RECOMMENDED COUMADIN/WARFARIN INR THERAPY RANGESSTANDARD DOSE: 2.0 - 3.0 Includes: PROPHYLAXIS for venous thrombosis, systemic embolization; TREATMENT for venous thrombosis and/or pulmonary embolus.HIGH RISK: Target INR is 2.5-3.5 for patients with mechanical heart valves.CBC W/PLT COUNT & AUTO [id number] 05:11:46 Test Item Value Reference Range Interpretation Comments WHITE BLOOD CELL COUNT (BEAKER) 9.7 K/ L 3.5-10.5 (test code = 775) RED BLOOD CELL COUNT (BEAKER) 2.73 M/ L 3.93-5.22 L (test code = 761) HEMOGLOBIN (BEAKER) (test code = 7.1 GM/DL 11.2-15.7 L 410) HEMATOCRIT (BEAKER) (test code = 23.0 % 34.1-44.9 L 411) MEAN CORPUSCULAR VOLUME (BEAKER) 84 fL 79-95 (test code = 753) MEAN CORPUSCULAR HEMOGLOBIN 26.0 pg 25.6-32.2 (BEAKER) (test code = 751) MEAN CORPUSCULAR HEMOGLOBIN CONC 30.9 GM/DL 32.2-35.5 L (BEAKER) (test code = 752) RED CELL DISTRIBUTION WIDTH 17.1 % 11.7-14.4 H (BEAKER) (test code = 412) PLATELET COUNT (BEAKER) (test 413 K/CU MM 150-450 code = 756) MEAN PLATELET VOLUME (BEAKER) 9.8 fL 9.4-12.3 (test code = 754) NUCLEATED RED BLOOD CELLS 0 /100 WBC 0-0 (BEAKER) (test code = 413) NEUTROPHILS RELATIVE PERCENT 83 % (BEAKER) (test code = 429) LYMPHOCYTES RELATIVE PERCENT 9 % (BEAKER) (test code = 430) MONOCYTES RELATIVE PERCENT 5 % (BEAKER) (test code = 431) EOSINOPHILS RELATIVE PERCENT 0 % (BEAKER) (test code = 432) BASOPHILS RELATIVE PERCENT 1 % (BEAKER) (test code = 437) NEUTROPHILS ABSOLUTE COUNT 8.06 K/ L 1.56-6.13 H (BEAKER) (test code = 670) LYMPHOCYTES ABSOLUTE COUNT 0.83 K/ L 1.18-3.74 L (BEAKER) (test code = 414) MONOCYTES ABSOLUTE COUNT (BEAKER) 0.49 K/ L 0.24-0.36 H (test code = 415) EOSINOPHILS ABSOLUTE COUNT 0.04 K/ L 0.04-0.36 (BEAKER) (test code = 416) BASOPHILS ABSOLUTE COUNT (BEAKER) 0.05 K/ L 0.01-0.08 (test code = 417) IMMATURE GRANULOCYTES-RELATIVE 2.50 % 0.00-1.00 H PERCENT (BEAKER) (test code = 2803) LACTIC ACID, [id number] 05:06:29 Test Item Value Reference Range Interpretation Comments LACTATE BLOOD VENOUS (2) (BEAKER) 0.83 mmol/L 0.50-2.00 (test code = 8892) Security Patrol Officer ID - NEELAM WCT, [id number] 03:57:00Unlisted Reason for Exam - Click Yes and Enter Reason Below->YesUnlisted Reason for Exam->Abd pain with history of perforation s/p recent small bowel resection with ileostomyProtocol Please Specify:->Standard ProtocolWill this procedure require oral contrast?->No [facility] 1975 Sex: FFINAL REPORT EXAM/TECHNIQUE: CT of the abdomen and pelvis without IV contrast.3D rendering was not performed. Dose modulation, iterative reconstruction, and/or weight based adjustment of the mA/kV was utilized to reduce the radiation dose to as low as reasonably achievable. INDICATION: Abdominal pain with history of perforation status post small bowel resection and ileostomy. COMPARISON: CT abdomen pelvis from 01/24/2023. FINDINGS: Lower thorax: Small bilateral pleural effusionswith basilar consolidation and septal thickening. Liver: Unremarkable. Biliary: The gallbladder is surgically absent. Unremarkable appearance of the biliary ducts. Spleen: Splenomegaly measuring 14.5 cm in craniocaudal dimension. Pancreas: Unremarkable. Adrenals: Unremarkable. Kidneys: No hydronephrosis. No urinary calculi. Bowel: Status post partial right hemicolectomy with right lower quadrant ileostomy. Status post small bowel resection with right lower quadrant ileostomy. Appendix is not identified. Stomach is unremarkable in appearance. No small bowel dilatation is identified. Lymph nodes: No lymphadenopathy by size criteria. Mesentery: Small volume ascites is present with mesenteric edema. No pneumoperitoneum. Pelvis: Suboptimal visualization of the uterus. No suspicious adnexal masses identified. Fluid catheter is present in the bladder. Vessels: Unremarkable. Osseous: No acute osseous process. No suspicious osseous lesions. Impression: 1.Volume overload with bilateral pleural effusions,pulmonary edema, small volume ascites, mesenteric edema.2.Splenomegaly.3.Otherwise, no acute processin the abdomen or pelvis on this noncontrast exam. Signed: Fox Bagley MDReport Verified Date/Time: 02/07/2023 03:57:45 SARS-CoV (RAPID ANTIGEN) [id number] 22:52:00 Test Item Value Reference Range Interpretation Comments SARS-CoV (ANTIGEN) NEGATIVE NEGATIVE (test code = COVAG) COVID AG (test This test has been code = COVAGC) marketed under the FDA Emergency Use Authorization (EUA) to meet challenges of the COVID-19 pandemic. The validation standards normally enforced by the FDA and the [employer] the [employer] ([employer]) are more stringent than those required for this test. Therefore, the result should be interpreted with caution and close attention to other clinical and epidemiological data CT CHEST W/O CONTRAST *OW*2023-02-06 19:51:19 [facility] : 1975 Sex: FEXAMINATION:CTCHEST W/O CONTRAST *OW*CLINICAL INDICATION:Female, 47 years old with CoughTECHNIQUE: Axial non-contrast contiguous images were obtained through the chest followed by coronal and sagittal multiplanar reformations.One or more of the following dose reduction techniques were used: Automated exposure control, adjustment of the mA and/or kV according to patient size, and/or iterative reconstruction. COMPARI SON: NoneFINDINGS:Chest:Medical Devices: None.Lymph Nodes: There are no pathologically enlarged supraclavicular, mediastinal, or axillary lymph nodes.Lungs/Airways/Pleura: Trachea and main bronchi are patent. Bilateral lower lobe discoid atelectatic changes are noted. No pneumothorax is identified. No pulmonary nodules or masses are identified. No pleural effusion is present. Heart/Vessels: Heart is normal in size. No coronary artery atherosclerosis is identified. No pericardial effusion is present.Aorta is normal in caliber and contour. No atherosclerosis is identified. Central pulmonary arteriesare normal in size.Soft Tissues: Visualized thyroid gland is normal. The esophagus is normal. No soft tissue abnormality of the chest is demonstrated.Upper Abdomen:Abdomen: Ill-defined edematous changes identified in the mesentery of uncertain significance. Correlation with CT scan of the abdomen and pelvis would be of benefit.Bones: No acute abnormality or suspicious bony lesion.IMPRESSION:1. Bilateral lower lobe discoid atelectatic changes.2. Otherwise unremarkable unenhanced CT scan of chest.3. Ill-defined edematous changes identified in the mesentery. CT scan of the abdomen and pelvis can be performed for further evaluation.Electronically signed by: Kvng Burns MD 02/06/2023 7:51 PM CDT CHEST 1 VIEW PORTABLE *OW* 2023-02-06 18:55:09 [facility] : 1975 Sex: FEXAMINATION: XR CHEST 1 VIEWINDICATION: CoughCOMPARISON: None available at time of dictationLOCATION: [id number]/IMPRESSION: Mild patchy interstitial opacities of mid and lower left lung and to lesser extent at right lung base suspicious for pneumonia. No pleural effusion or pneumothorax. Normal cardiac silhouette.E lectronically signed by: Yesika Martines MD 02/06/2023 6:55 PM CDT [id number] CHEMISTRY 13 *OW* [id number] 18:54:00 Test Item Value Reference Range Interpretation Comments GLUCOSE (test code = GGUL) 121 mg/dL 73-118 H BUN (test code = GBUN) 18 mg/dL 7-22 CREATININE (test code = GCRE) 1.1 mg/dL 0.6-1.2 URIC ACID (test code = GUA) 4.4 mg/dL 2.2-6.6 CALCIUM (test code = GCL+) 8.9 mg/dL 8.0-10.3 ALBUMIN (test code = GALB) 3.0 g/dL 3.5-5.5 L PROTEIN (test code = GTP) 5.9 g/dL 6.4-8.1 L ALT (test code = GALT) 11 U/L 10-47 AST (test code = TONI) 15 U/L 11-38 ALK PHOS (test code = GALP) 201 U/L 42-141 H BILI TOTAL (test code = GTBIL) 0.7 mg/dL 0.2-1.6 GGT (test code = GGGT) 95 U/L 5-65 H AMYLASE (test code = GAMY) 24 U/L 14-97 METLAC 12 PANEL *OW* [id number] 18:24:00 Test Item Value Reference Range Interpretation Comments ALBUMIN (test code = GALB) 2.9 g/dL 3.5-5.5 L GLUCOSE (test code = GGUL) 120 mg/dL 73-118 H CREATININE (test code = GCRE) 0.8 mg/dL 0.6-1.2 BUN (test code = GBUN) 18 mg/dL 7-22 CALCIUM (test code = GCL+) 9.3 mg/dL 8.0-10.3 SODIUM (test code = GNA+) 132 mmol/L 128-145 POTASSIUM (test code = GK+) 5.2 mmol/L 3.6-5.1 H CHLORIDE (test code = GCL-) 100 mmol/L 98-108 TCO2 (test code = GTC02) 21 mmol/L 18-33 MAGNESIUM (test code = GMG+) 1.8 mg/dL 1.6-2.3 LACTATE (test code = GEOFFREY) 1.45 mmol/L 0.53-2.10 PHOSPHORUS (test code = OPHOS) 6.1 mg/dL 2.2-4.1 H CBC (INCLUDES AUTOMATED DIFFERENTIAL) *2023-02-06 18:19:00 Test Item Value Reference Range Interpretation Comments WBC (test code = WBC) 13.1 10\\S\\3/uL 4.5-11.0 H RBC (test code = RBC) 3.03 10\\S\\6/uL 4.20-5.60 L HGB (test code = HBG) 8.0 g/dL 12.0-15.5 L HCT (test code = HCT) 26.0 % 35.0-44.0 L MCV (test code = MCV) 85.9 fL 81.0-99.0 MCH (test code = MCH) 26.4 pg 27.0-31.0 L MCHC (test code = MCHC) 30.8 g/dL 32.0-36.0 L RDW (test code = RDW) 15.9 % 11.5-14.5 H PLT (test code = PLT) 469 10\\S\\3/uL 130-400 H MPV (test code = OMPV) 7.8 fL 6.2-10.2 NEUTROP # (test code = NE#) 11.7 10\\S\\3/uL 1.6-8.0 H LYMPH # (test code = LY#) 0.8 10\\S\\3/uL 1.1-3.5 L MID # (test code = GMID#) 0.6 10\\S\\3/uL 0.0-1.1 GRAN % (test code = GRA%) 89.3 % 35.0-73.0 H LYMPH % (test code = GLY%) 6.2 % 20.0-55.0 L MID % (test code = GMID%) 4.5 % 0.0-10.0 MetyLyte 8 Panel *OW* [id number] 18:19:00 Test Item Value Reference Range Interpretation Comments GLUCOSE (test code = GGUL) 125 mg/dL 73-118 H BUN (test code = GBUN) 18 mg/dL 7-22 CREATININE (test code = GCRE) 1.0 mg/dL 0.6-1.2 CK TOTAL (test code = GCK) 42 U/L 30-190 SODIUM (test code = GNA+) 135 mmol/L 128-145 POTASSIUM (test code = GK+) 4.8 mmol/L 3.6-5.1 CHLORIDE (test code = GCL-) 102 mmol/L 98-108 TCO2 (test code = GTC02) 23 mmol/L 18-33 POC-Glucose [id number] 11:45:14 Test Item Value Reference Range Interpretation Comments POC-Glucose Meter (test 88 mg/dL 70-110 : TE STED AT [facility] code = 1538) [address] [facility], 770 30: Security Patrol Officer/Techni waylon ID = [id number] for JACQUELYN CARRILLO Lab Interpretation (test Normal code = 05791-8) [facility] [id number] 11:45:14 Test Item Value Reference Range Interpretation Comments POC-GLUCOSE METER 88 mg/dL 70-110 : TESTED A T [facility] 6720 (BEAKER) (test code = [facility], 1538) [address]: Security Patrol Officer/Techni waylon ID = [id number] for CHARLEY CHICAS POCT-GLUCOSE [id number] 08:03:21 Test Item Value Reference Range Interpretation Comments POC-GLUCOSE METER 78 mg/dL 70-110 : TESTED A T [facility] 6720 (BEAKER) (test code = [facility], 1538) [address]: Security Patrol Officer/Techni waylon ID = [id number] for CHARLEY CHIACS [id number] 06:39:49 Test Item Value Reference Range Interpretation Comments HAPTOGLOBIN (BEAKER) (test code = 260 mg/dL 14-258 H 366) Security Patrol Officer ID - ADMINLACTATE DEHYDROGENASE (LDH)2023-02-04 06:36:57 Test Item Value Reference Range Interpretation Comments LACTATE DEHYDROGENASE (BEAKER) (test 272 U/L 125-220 H code = 635) Security Patrol Officer ID - [id number] 06:36:56 Test Item Value Reference Range Interpretation Comments PHOSPHORUS (BEAKER) (test code = 4.8 mg/dL 2.3-4.7 H 604) Security Patrol Officer ID - [id number] 06:36:55 Test Item Value Reference Range Interpretation Comments MAGNESIUM (BEAKER) (test code = 2.0 mg/dL 1.6-2.6 627) Security Patrol Officer ID - mmCOMPREHENSIVE METABOLIC [id number] 06:36:54 Test Item Value Reference Range Interpretation Comments TOTAL PROTEIN 5.1 gm/dL 6.0-8.3 L (BEAKER) (test code = 770) ALBUMIN (BEAKER) 2.8 g/dL 3.5-5.0 L (test code = 1145) ALKALINE 204 U/L 40-150 H PHOSPHATASE (BEAKER) (test code = 346) BILIRUBIN TOTAL 0.5 mg/dL 0.2-1.2 (BEAKER) (test code = 377) SODIUM (BEAKER) 135 meq/L 136-145 L (test code = 381) POTASSIUM (BEAKER) 4.4 meq/L 3.5-5.1 (test code = 379) CHLORIDE (BEAKER) 104 meq/L 98-107 (test code = 382) CO2 (BEAKER) (test 22 meq/L 22-29 code = 355) BLOOD UREA 18 mg/dL 7-21 NITROGEN (BEAKER) (test code = 354) CREATININE 0.93 mg/dL 0.57-1.25 (BEAKER) (test code = 358) GLUCOSE RANDOM 74 mg/dL 70-105 (BEAKER) (test code = 652) CALCIUM (BEAKER) 8.6 mg/dL 8.4-10.2 (test code = 697) AST (SGOT) 11 U/L 5-34 (BEAKER) (test code = 353) ALT (SGPT) 11 U/L 6-55 (BEAKER) (test code = 347) EGFR (BEAKER) 75 Interpretatio n of eGFR (test code = [...] not appl icable for dialysis patien ts Security Patrol Officer ID - mmPT/[id number] 06:25:46 Test Item Value Reference Range Interpretation Comments PROTIME (BEAKER) (test code = 14.1 seconds 11.9-14.2 759) INR (BEAKER) (test code = 370) 1.11 <=5.90 PARTIAL THROMBOPLASTIN TIME 38.8 seconds 22.5-36.0 H (BEAKER) (test code = 760) RECOMMENDED COUMADIN/WARFARIN INR THERAPY RANGESSTANDARD DOSE: 2.0 - 3.0 Includes: PROPHYLAXIS for venous thrombosis, systemic embolization; TREATMENT for venous thrombosis and/or pulmonary embolus.HIGH RISK: Target INR is 2.5-3.5 for patients with mechanical heart valves.CBC W/PLT COUNT & AUTO [id number] 06:21:15 Test Item Value Reference Range Interpretation Comments WHITE BLOOD CELL COUNT (BEAKER) 7.6 K/ L 3.5-10.5 (test code = 775) RED BLOOD CELL COUNT (BEAKER) 2.49 M/ L 3.93-5.22 L (test code = 761) HEMOGLOBIN (BEAKER) (test code = 6.5 GM/DL 11.2-15.7 L 410) HEMATOCRIT (BEAKER) (test code = 21.3 % 34.1-44.9 L 411) MEAN CORPUSCULAR VOLUME (BEAKER) 86 fL 79-95 (test code = 753) MEAN CORPUSCULAR HEMOGLOBIN 26.1 pg 25.6-32.2 (BEAKER) (test code = 751) MEAN CORPUSCULAR HEMOGLOBIN CONC 30.5 GM/DL 32.2-35.5 L (BEAKER) (test code = 752) RED CELL DISTRIBUTION WIDTH 17.7 % 11.7-14.4 H (BEAKER) (test code = 412) PLATELET COUNT (BEAKER) (test 364 K/CU MM 150-450 code = 756) MEAN PLATELET VOLUME (BEAKER) 9.8 fL 9.4-12.3 (test code = 754) NUCLEATED RED BLOOD CELLS 0 /100 WBC 0-0 (BEAKER) (test code = 413) NEUTROPHILS RELATIVE PERCENT 80 % (BEAKER) (test code = 429) LYMPHOCYTES RELATIVE PERCENT 10 % (BEAKER) (test code = 430) MONOCYTES RELATIVE PERCENT 5 % (BEAKER) (test code = 431) EOSINOPHILS RELATIVE PERCENT 0 % (BEAKER) (test code = 432) BASOPHILS RELATIVE PERCENT 0 % (BEAKER) (test code = 437) NEUTROPHILS ABSOLUTE COUNT 6.08 K/ L 1.56-6.13 (BEAKER) (test code = 670) LYMPHOCYTES ABSOLUTE COUNT 0.77 K/ L 1.18-3.74 L (BEAKER) (test code = 414) MONOCYTES ABSOLUTE COUNT (BEAKER) 0.38 K/ L 0.24-0.36 H (test code = 415) EOSINOPHILS ABSOLUTE COUNT 0.03 K/ L 0.04-0.36 L (BEAKER) (test code = 416) BASOPHILS ABSOLUTE COUNT (BEAKER) 0.03 K/ L 0.01-0.08 (test code = 417) IMMATURE GRANULOCYTES-RELATIVE 4.30 % 0.00-1.00 H PERCENT (BEAKER) (test code = 2801) Prepare Leuko-Red [id number] 23:54:00 Test Item Value Reference Range Interpretation Comments Unit ABO (test code = O Pos [id number]) UNIT NUMBER (test code = [id number] 934-0) Status (test code = 4640585) TX_TIMEINCHART Blood Bank Product (test code RED BLOOD CELLS = 2263) PRODUCT CODE (test code = M6029B60 933-2) CROSSMATCH (test code = 2264) [facility] [id number] 21:08:01 Test Item Value Reference Range Interpretation Comments POC-GLUCOSE METER 100 mg/dL 70-110 : TESTED A T [facility] 6720 (BEAKER) (test code = [place], 1538) [address]: Security Patrol Officer/Techni waylon ID = [id number] for AN NOR, LILIANA HATFIELD, REMOVAL OF TUNNELED CVC W/O [id number] 17:10:00Reason for exam:- >Recovering renal function. No longer needs dialysisAnesthesia:->None [facility] : 1975 Sex: FFINAL REPORT tunneled dialysis catheter removal. History: ALISSA requiring hemodialysis. Modality: None. Sedation: None. School Bus Aide: Sancho Cronin PA-C Terminal System Operator: None. Approach:Right anterolateral chest. Estimated blood loss: < 5 cc. Specimen: None. Technique: The procedure including risks and benefits were explained to the patient, who expressed understanding. After informed written consent was obtained, the patient's right chest region was prepped and draped in the usual sterile fashion. The skin was anesthetized with lidocaine. The sutures were cut and the catheter was removed with blunt dissection. Hemostasis was obtained with manual compression. The patient tolerated the procedure well and left the department in the same condition. Impression: Successful, uncompl icated removal of a hemodialysis tunneled venous catheter. Signed: Matt Weavereport Verified Date/Time: 02/03/2023 17:10:24 Reading Location: [address] Ultrasound Reading Room POCT-GLUCOSE [id number] 16:51:54 Test Item Value Reference Range Interpretation Comments POC-GLUCOSE METER 152 mg/dL 70-110 H : TESTED A [facility] 67[address] (BEEARL) (test code = ROZ Gutiérrez [place], 1538) [address]: Security Patrol Officer/Techni waylon ID = [id number] for Naa Christian POCT-GLUCOSE [id number] 11:51:03 Test Item Value Reference Range Interpretation Comments POC-GLUCOSE METER 110 mg/dL 70-110 : TESTED A T [facility] 6720 (BEAKER) (test code = ROZ Gutiérrez [place], 1538) [address]: Security Patrol Officer/Techni waylon ID = [id number] for Naa Christian POCT-GLUCOSE [id number] 09:28:46 Test Item Value Reference Range Interpretation Comments POC-GLUCOSE METER 98 mg/dL 70-110 : TESTED A T [facility] 6720 (BEAKER) (test code = ROZ Guti[place]rez [place], 1538) 15[address]: Security Patrol Officer/Techni waylon ID = [id number] for Naa Wade LACTATE DEHYDROGENASE (LDH)2023-02-03 07:50:25 Test Item Value Reference Range Interpretation Comments LACTATE DEHYDROGENASE (BEAKER) (test 264 U/L 125-220 H code = 635) Security Patrol Officer ID - [id number] 07:50:24 Test Item Value Reference Range Interpretation Comments PHOSPHORUS (BEAKER) (test code = 4.8 mg/dL 2.3-4.7 H 604) Security Patrol Officer ID - [id number] 07:50:23 Test Item Value Reference Range Interpretation Comments MAGNESIUM (BEAKER) (test code = 1.3 mg/dL 1.6-2.6 L 627) Security Patrol Officer ID - ADMINCOMPREHENSIVE METABOLIC [id number] 07:50:22 Test Item Value Reference Range Interpretation Comments TOTAL PROTEIN 5.1 gm/dL 6.0-8.3 L (BEAKER) (test code = 770) ALBUMIN (BEAKER) 2.7 g/dL 3.5-5.0 L (test code = 1145) ALKALINE 182 U/L 40-150 H PHOSPHATASE (BEAKER) (test code = 346) BILIRUBIN TOTAL 0.5 mg/dL 0.2-1.2 (BEAKER) (test code = 377) SODIUM (BEAKER) 132 meq/L 136-145 L (test code = 381) POTASSIUM (BEAKER) 4.4 meq/L 3.5-5.1 (test code = 379) CHLORIDE (BEAKER) 99 meq/L 98-107 (test code = 382) CO2 (BEAKER) (test 26 meq/L 22-29 code = 355) BLOOD UREA 23 mg/dL 7-21 H NITROGEN (BEAKER) (test code = 354) CREATININE 1.16 mg/dL 0.57-1.25 (BEAKER) (test code = 358) GLUCOSE RANDOM 72 mg/dL 70-105 (BEAKER) (test code = 652) CALCIUM (BEAKER) 8.2 mg/dL 8.4-10.2 L (test code = 697) AST (SGOT) 9 U/L 5-34 (BEAKER) (test code = 353) ALT (SGPT) 10 U/L 6-55 (BEAKER) (test code = 347) EGFR (BEAKER) 58 Interpretatio n of eGFR (test code = [...] i s not applicable for dialysis patients Security Patrol Officer ID - [id number] 06:39:57 Test Item Value Reference Range Interpretation Comments HAPTOGLOBIN (BEAKER) (test code = 260 mg/dL 14-258 H 366) Security Patrol Officer ID - ADMINPT/[id number] 06:17:10 Test Item Value Reference Range Interpretation Comments PROTIME (BEAKER) (test code = 14.6 seconds 11.9-14.2 H 759) INR (BEAKER) (test code = 370) 1.21 <=5.90 PARTIAL THROMBOPLASTIN TIME 37.5 seconds 22.5-36.0 H (BEAKER) (test code = 760) RECOMMENDED COUMADIN/WARFARIN INR THERAPY RANGESSTANDARD DOSE: 2.0 - 3.0 Includes: PROPHYLAXIS for venous thrombosis, systemic embolization; TREATMENT for venous thrombosis and/or pulmonary embolus.HIGH RISK: Target INR is 2.5-3.5 for patients with mechanical heart valves.CBC W/PLT COUNT & AUTO [id number] 06:12:49 Test Item Value Reference Range Interpretation Comments WHITE BLOOD CELL COUNT (BEAKER) 8.6 K/ L 3.5-10.5 (test code = 775) RED BLOOD CELL COUNT (BEAKER) 2.45 M/ L 3.93-5.22 L (test code = 761) HEMOGLOBIN (BEAKER) (test code = 6.4 GM/DL 11.2-15.7 L 410) HEMATOCRIT (BEAKER) (test code = 20.3 % 34.1-44.9 L 411) MEAN CORPUSCULAR VOLUME (BEAKER) 83 fL 79-95 (test code = 753) MEAN CORPUSCULAR HEMOGLOBIN 26.1 pg 25.6-32.2 (BEAKER) (test code = 751) MEAN CORPUSCULAR HEMOGLOBIN CONC 31.5 GM/DL 32.2-35.5 L (BEAKER) (test code = 752) RED CELL DISTRIBUTION WIDTH 17.9 % 11.7-14.4 H (BEAKER) (test code = 412) PLATELET COUNT (BEAKER) (test 366 K/CU MM 150-450 code = 756) MEAN PLATELET VOLUME (BEAKER) 9.8 fL 9.4-12.3 (test code = 754) NUCLEATED RED BLOOD CELLS 0 /100 WBC 0-0 (BEAKER) (test code = 413) NEUTROPHILS RELATIVE PERCENT 82 % (BEAKER) (test code = 429) LYMPHOCYTES RELATIVE PERCENT 8 % (BEAKER) (test code = 430) MONOCYTES RELATIVE PERCENT 5 % (BEAKER) (test code = 431) EOSINOPHILS RELATIVE PERCENT 0 % (BEAKER) (test code = 432) BASOPHILS RELATIVE PERCENT 0 % (BEAKER) (test code = 437) NEUTROPHILS ABSOLUTE COUNT 7.01 K/ L 1.56-6.13 H (BEAKER) (test code = 670) LYMPHOCYTES ABSOLUTE COUNT 0.71 K/ L 1.18-3.74 L (BEAKER) (test code = 414) MONOCYTES ABSOLUTE COUNT (BEAKER) 0.46 K/ L 0.24-0.36 H (test code = 415) EOSINOPHILS ABSOLUTE COUNT 0.02 K/ L 0.04-0.36 L (BEAKER) (test code = 416) BASOPHILS ABSOLUTE COUNT (BEAKER) 0.03 K/ L 0.01-0.08 (test code = 417) IMMATURE GRANULOCYTES-RELATIVE 4.30 % 0.00-1.00 H PERCENT (BEAKER) (test code = 2741) POCT-GLUCOSE [id number] 20:34:23 Test Item Value Reference Range Interpretation Comments POC-GLUCOSE METER 126 mg/dL 70-110 H : TESTED A T [facility] 6720 (BEAKER) (test code = [facility], 153) [address]: Security Patrol Officer/Techni waylon ID = [id number] for Cash Morales POCT-GLUCOSE [id number] 16:32:56 Test Item Value Reference Range Interpretation Comments POC-GLUCOSE METER 107 mg/dL 70-110 : TESTED A T [facility] 6720 (BEAKER) (test code = [facility], 1538) 670[address]: Security Patrol Officer/Techni waylon ID = [id number] for STAS MADERA Antibody [id number] 15:43:00 Test Item Value Reference Range Interpretation Comments ANTIBODY ID WARM AUTO AB (BEAKER) (test code = 2253) Antibody Consult SIGNED OUT Warm panagg lutinin (test code = 2479) detected, ok to transfuse incom patible blood.Electroni c Signature: Kayla Ryder [facility] [id number] 12:19:17 Test Item Value Reference Range Interpretation Comments POC-GLUCOSE METER 94 mg/dL 70-110 : TESTED A T [facility] 6720 (BEAKER) (test code = [facility], 153) 61507: Security Patrol Officer/Techni waylon ID = [id number] for STAS SWEET POCT-GLUCOSE [id number] 08:17:54 Test Item Value Reference Range Interpretation Comments POC-GLUCOSE METER 76 mg/dL 70-110 : TESTED A T [facility] 6720 (BEAKER) (test code = [facility], 153) 28560: Security Patrol Officer/Techni waylon ID = [id number] for STAS SWEET [id number] 07:11:15 Test Item Value Reference Range Interpretation Comments PHOSPHORUS (BEAKER) (test code = 4.5 mg/dL 2.3-4.7 604) Security Patrol Officer ID - MARCOLACTATE DEHYDROGENASE (LDH)2023-02-02 07:11:15 Test Item Value Reference Range Interpretation Comments LACTATE DEHYDROGENASE (BEAKER) (test 319 U/L 125-220 H code = 635) Security Patrol Officer ID - [id number] 07:11:14 Test Item Value Reference Range Interpretation Comments MAGNESIUM (BEAKER) (test code = 1.4 mg/dL 1.6-2.6 L 627) Security Patrol Officer ID - MARCOCOMPREHENSIVE METABOLIC [id number] 07:11:13 Test Item Value Reference Range Interpretation Comments TOTAL PROTEIN 5.0 gm/dL 6.0-8.3 L (BEAKER) (test code = 770) ALBUMIN (BEAKER) 2.7 g/dL 3.5-5.0 L (test code = 1145) ALKALINE 191 U/L 40-150 H PHOSPHATASE (BEAKER) (test code = 346) BILIRUBIN TOTAL 0.5 mg/dL 0.2-1.2 (BEAKER) (test code = 377) SODIUM (BEAKER) 137 meq/L 136-145 (test code = 381) POTASSIUM (BEAKER) 4.2 meq/L 3.5-5.1 (test code = 379) CHLORIDE (BEAKER) 102 meq/L 98-107 (test code = 382) CO2 (BEAKER) (test 24 meq/L 22-29 code = 355) BLOOD UREA 23 mg/dL 7-21 H NITROGEN (BEAKER) (test code = 354) CREATININE 1.17 mg/dL 0.57-1.25 (BEAKER) (test code = 358) GLUCOSE RANDOM 72 mg/dL 70-105 (BEAKER) (test code = 652) CALCIUM (BEAKER) 8.6 mg/dL 8.4-10.2 (test code = 697) AST (SGOT) 12 U/L 5-34 (BEAKER) (test code = 353) ALT (SGPT) 13 U/L 6-55 (BEAKER) (test code = 347) EGFR (BEAKER) 57 Interpretatio n of eGFR (test code = [...] not appl icable for dialysis patien ts Security Patrol Officer ID - [id number] 06:39:13 Test Item Value Reference Range Interpretation Comments HAPTOGLOBIN (BEAKER) (test code = 256 mg/dL 14-258 366) Security Patrol Officer ID - ADMINCBC W/PLT COUNT & AUTO [id number] 06:28:23 Test Item Value Reference Range Interpretation Comments WHITE BLOOD CELL COUNT (BEAKER) 8.8 K/ L 3.5-10.5 (test code = 775) RED BLOOD CELL COUNT (BEAKER) 2.09 M/ L 3.93-5.22 L (test code = 761) HEMOGLOBIN (BEAKER) (test code = 5.5 GM/DL 11.2-15.7 LL 410) HEMATOCRIT (BEAKER) (test code = 17.8 % 34.1-44.9 L 411) MEAN CORPUSCULAR VOLUME (BEAKER) 85 fL 79-95 (test code = 753) MEAN CORPUSCULAR HEMOGLOBIN 26.3 pg 25.6-32.2 (BEAKER) (test code = 751) MEAN CORPUSCULAR HEMOGLOBIN CONC 30.9 GM/DL 32.2-35.5 L (BEAKER) (test code = 752) RED CELL DISTRIBUTION WIDTH 17.0 % 11.7-14.4 H (BEAKER) (test code = 412) PLATELET COUNT (BEAKER) (test 402 K/CU MM 150-450 code = 756) MEAN PLATELET VOLUME (BEAKER) 9.7 fL 9.4-12.3 (test code = 754) NUCLEATED RED BLOOD CELLS 0 /100 WBC 0-0 (BEAKER) (test code = 413) NEUTROPHILS RELATIVE PERCENT 80 % (BEAKER) (test code = 429) LYMPHOCYTES RELATIVE PERCENT 9 % (BEAKER) (test code = 430) MONOCYTES RELATIVE PERCENT 6 % (BEAKER) (test code = 431) EOSINOPHILS RELATIVE PERCENT 1 % (BEAKER) (test code = 432) BASOPHILS RELATIVE PERCENT 0 % (BEAKER) (test code = 437) NEUTROPHILS ABSOLUTE COUNT 6.99 K/ L 1.56-6.13 H (BEAKER) (test code = 670) LYMPHOCYTES ABSOLUTE COUNT 0.74 K/ L 1.18-3.74 L (BEAKER) (test code = 414) MONOCYTES ABSOLUTE COUNT (BEAKER) 0.53 K/ L 0.24-0.36 H (test code = 415) EOSINOPHILS ABSOLUTE COUNT 0.04 K/ L 0.04-0.36 (BEAKER) (test code = 416) BASOPHILS ABSOLUTE COUNT (BEAKER) 0.03 K/ L 0.01-0.08 (test code = 417) IMMATURE GRANULOCYTES-RELATIVE 4.80 % 0.00-1.00 H PERCENT (BEAKER) (test code = 2801) [id number] 06:24:46 Test Item Value Reference Range Interpretation Comments PROTIME (BEAKER) (test code = 14.9 seconds 11.9-14.2 H 759) INR (BEAKER) (test code = 370) 1.24 <=5.90 PARTIAL THROMBOPLASTIN TIME 39.1 seconds 22.5-36.0 H (BEAKER) (test code = 760) RECOMMENDED COUMADIN/WARFARIN INR THERAPY RANGESSTANDARD DOSE: 2.0 - 3.0 Includes: PROPHYLAXIS for venous thrombosis, systemic embolization; TREATMENT for venous thrombosis and/or pulmonary embolus.HIGH RISK: Target INR is 2.5-3.5 for patients with mechanical heart valves.POCT-GLUCOSE [id number] 21:16:05 Test Item Value Reference Range Interpretation Comments POC-GLUCOSE METER 93 mg/dL 70-110 : TESTED A T [facility] 6720 (Upside) (test code = [facility], 153) [address]: Security Patrol Officer/Techni waylon ID = [id number] for LILIANA RUSSELL POCT-GLUCOSE [id number] 17:29:03 Test Item Value Reference Range Interpretation Comments POC-GLUCOSE METER 124 mg/dL 70-110 H : TESTED A T [facility] 6720 (Upside) (test code = [facility], 1538) [address]: Security Patrol Officer/Techni waylon ID = [id number] for ONELIA WARNER POCT-GLUCOSE [id number] 12:04:10 Test Item Value Reference Range Interpretation Comments POC-GLUCOSE METER 151 mg/dL 70-110 H : TESTED A T [facility] 6720 (BEAKER) (test code = ROZ Gutiérrez [facility], 1538) 693[address]: Security Patrol Officer/Techni waylon ID = [id number] for Naa Christian POCT-GLUCOSE [id number] 08:17:34 Test Item Value Reference Range Interpretation Comments POC-GLUCOSE METER 93 mg/dL 70-110 : TESTED A T [facility] 6720 (BEAKER) (test code = ROZ Gutiérrez [facility], 1538) 18969: Security Patrol Officer/Techni waylon ID = [id number] for Fabricio Alonzo [id number] 06:55:58 Test Item Value Reference Range Interpretation Comments HAPTOGLOBIN (BEAKER) (test code = 243 mg/dL 14-258 366) Security Patrol Officer ID - BSLACTATE DEHYDROGENASE (LDH)2023-02-01 06:40:35 Test Item Value Reference Range Interpretation Comments LACTATE DEHYDROGENASE 336 U/L 125-220 H Specim en slightly (BEAKER) (test code = hemoly zed 635) Security Patrol Officer ID - [id number] 06:40:11 Test Item Value Reference Range Interpretation Comments PHOSPHORUS (BEAKER) 4.5 mg/dL 2.3-4.7 Specimen slightly (test code = 604) hemolyzed Security Patrol Officer ID - MMCOMPREHENSIVE METABOLIC [id number] 06:40:11 Test Item Value Reference Range Interpretation Comments TOTAL PROTEIN 5.1 gm/dL 6.0-8.3 L Specimen sligh tly (BEAKER) (test hemolyzed code = 770) ALBUMIN (BEAKER) 2.7 g/dL 3.5-5.0 L Specimen sl ightly (test code = 1145) hemolyzed ALKALINE 184 U/L 40-150 H PHOSPHATASE (BEAKER) (test code = 346) BILIRUBIN TOTAL 0.5 mg/dL 0.2-1.2 Specimen sli ghtly (BEAKER) (test hemolyzed code = 377) SODIUM (BEAKER) 135 meq/L 136-145 L (test code = 381) POTASSIUM (BEAKER) 4.4 meq/L 3.5-5.1 Specimen slightly (test code = 379) hemolyzed CHLORIDE (BEAKER) 100 meq/L 98-107 (test code = 382) CO2 (BEAKER) (test 25 meq/L 22-29 code = 355) BLOOD UREA 24 mg/dL 7-21 H NITROGEN (BEAKER) (test code = 354) CREATININE 1.24 mg/dL 0.57-1.25 Specimen slight ly (BEAKER) (test hemolyzed code = 358) GLUCOSE RANDOM 78 mg/dL 70-105 (BEAKER) (test code = 652) CALCIUM (BEAKER) 8.6 mg/dL 8.4-10.2 (test code = 697) AST (SGOT) 14 U/L 5-34 Specimen slight ly (BEAKER) (test hemolyzed code = 353) ALT (SGPT) 10 U/L 6-55 Specimen slight ly (BEAKER) (test hemolyzed code = 347) EGFR (BEAKER) 53 Interpretatio n of eGFR (test code = [...] not appl icable for dialysis patien ts Security Patrol Officer ID - [id number] 06:40:10 Test Item Value Reference Range Interpretation Comments MAGNESIUM (BEAKER) 1.6 mg/dL 1.6-2.6 Specimen slightly (test code = 627) hemolyzed Security Patrol Officer ID - [id number] 06:39:30 Test Item Value Reference Range Interpretation Comments PROTIME (BEAKER) (test code = 15.5 seconds 11.9-14.2 H 759) INR (BEAKER) (test code = 370) 1.31 <=5.90 PARTIAL THROMBOPLASTIN TIME 39.5 seconds 22.5-36.0 H (BEAKER) (test code = 760) RECOMMENDED COUMADIN/WARFARIN INR THERAPY RANGESSTANDARD DOSE: 2.0 - 3.0 Includes: PROPHYLAXIS for venous thrombosis, systemic embolization; TREATMENT for venous thrombosis and/or pulmonary embolus.HIGH RISK: Target INR is 2.5-3.5 for patients with mechanical heart valves.CBC W/PLT COUNT & AUTO [id number] 06:29:14 Test Item Value Reference Range Interpretation Comments WHITE BLOOD CELL COUNT (BEAKER) 11.6 K/ L 3.5-10.5 H (test code = 775) RED BLOOD CELL COUNT (BEAKER) 2.11 M/ L 3.93-5.22 L (test code = 761) HEMOGLOBIN (BEAKER) (test code = 5.6 GM/DL 11.2-15.7 LL 410) HEMATOCRIT (BEAKER) (test code = 18.5 % 34.1-44.9 L 411) MEAN CORPUSCULAR VOLUME (BEAKER) 88 fL 79-95 (test code = 753) MEAN CORPUSCULAR HEMOGLOBIN 26.5 pg 25.6-32.2 (BEAKER) (test code = 751) MEAN CORPUSCULAR HEMOGLOBIN CONC 30.3 GM/DL 32.2-35.5 L (BEAKER) (test code = 752) RED CELL DISTRIBUTION WIDTH 16.8 % 11.7-14.4 H (BEAKER) (test code = 412) PLATELET COUNT (BEAKER) (test 408 K/CU MM 150-450 code = 756) MEAN PLATELET VOLUME (BEAKER) 9.7 fL 9.4-12.3 (test code = 754) NUCLEATED RED BLOOD CELLS 0 /100 WBC 0-0 (BEAKER) (test code = 413) NEUTROPHILS RELATIVE PERCENT 83 % (BEAKER) (test code = 429) LYMPHOCYTES RELATIVE PERCENT 6 % (BEAKER) (test code = 430) MONOCYTES RELATIVE PERCENT 6 % (BEAKER) (test code = 431) EOSINOPHILS RELATIVE PERCENT 0 % (BEAKER) (test code = 432) BASOPHILS RELATIVE PERCENT 0 % (BEAKER) (test code = 437) NEUTROPHILS ABSOLUTE COUNT 9.59 K/ L 1.56-6.13 H (BEAKER) (test code = 670) LYMPHOCYTES ABSOLUTE COUNT 0.74 K/ L 1.18-3.74 L (BEAKER) (test code = 414) MONOCYTES ABSOLUTE COUNT (BEAKER) 0.66 K/ L 0.24-0.36 H (test code = 415) EOSINOPHILS ABSOLUTE COUNT 0.02 K/ L 0.04-0.36 L (BEAKER) (test code = 416) BASOPHILS ABSOLUTE COUNT (BEAKER) 0.04 K/ L 0.01-0.08 (test code = 417) IMMATURE GRANULOCYTES-RELATIVE 4.60 % 0.00-1.00 H PERCENT (BEAKER) (test code = 2801) Anaerobic [id number] 22:20:50 Test Item Value Reference Range Interpretation Comments Result (test code = No anaerobes isolated 6463-4) [facility] [id number] 22:20:50 Test Item Value Reference Range Interpretation Comments CULTURE (BEAKER) (test No anaerobes isolated code = 1095) POCT-GLUCOSE [id number] 21:24:10 Test Item Value Reference Range Interpretation Comments POC-GLUCOSE METER 146 mg/dL 70-110 H : TESTED A T [facility] 6720 (BEAKER) (test code = [facility], 153) [id number]: Security Patrol Officer/Techni waylon ID = [id number] for AN LILIANA SANDY POCT-GLUCOSE [id number] 15:44:11 Test Item Value Reference Range Interpretation Comments POC-GLUCOSE METER 100 mg/dL 70-110 : TESTED A T [facility] 67[facility] (BEAKER) (test code = [facility], 153) 18766: Security Patrol Officer/Techni waylon ID = [id number] for Re Yovanny hernandez POCT-GLUCOSE [id number] 11:29:58 Test Item Value Reference Range Interpretation Comments POC-GLUCOSE METER 85 mg/dL 70-110 : TESTED A T [facility] 67[facility] (BEAKER) (test code = [facility], 153) 09015: Security Patrol Officer/Techni waylon ID = [id number] for RehCecilia stanleyis POCT-GLUCOSE [id number] 07:50:42 Test Item Value Reference Range Interpretation Comments POC-GLUCOSE METER 79 mg/dL 70-110 : TESTED A T [facility] 6720 (BEAKER) (test code = [facility], 153) [id number]: Security Patrol Officer/Techni waylon ID = [id number] for Reha mi, Yovanny RETICULOCYTE [id number] 07:48:05 Test Item Value Reference Range Interpretation Comments RETICULOCYTE COUNT PCT (BEAKER) (test 2.4 % 0.5-1.7 H code = 575) Security Patrol Officer ID - [id number] DEHYDROGENASE (LDH)2023-01-31 07:15:11 Test Item Value Reference Range Interpretation Comments LACTATE DEHYDROGENASE (BEAKER) (test 312 U/L 125-220 H code = 635) Security Patrol Officer ID - SARAY [id number] 07:15:10 Test Item Value Reference Range Interpretation Comments PHOSPHORUS (BEAKER) (test code = 3.8 mg/dL 2.3-4.7 604) Security Patrol Officer ID - SARAY [id number] 07:15:09 Test Item Value Reference Range Interpretation Comments MAGNESIUM (BEAKER) (test code = 1.8 mg/dL 1.6-2.6 627) Security Patrol Officer ID - SARAY BCOMPREHENSIVE METABOLIC [id number] 07:15:08 Test Item Value Reference Range Interpretation Comments TOTAL PROTEIN 4.9 gm/dL 6.0-8.3 L (BEAKER) (test code = 770) ALBUMIN (BEAKER) 2.7 g/dL 3.5-5.0 L (test code = 1145) ALKALINE 180 U/L 40-150 H PHOSPHATASE (BEAKER) (test code = 346) BILIRUBIN TOTAL 0.4 mg/dL 0.2-1.2 (BEAKER) (test code = 377) SODIUM (BEAKER) 134 meq/L 136-145 L (test code = 381) POTASSIUM (BEAKER) 4.2 meq/L 3.5-5.1 (test code = 379) CHLORIDE (BEAKER) 99 meq/L 98-107 (test code = 382) CO2 (BEAKER) (test 26 meq/L 22-29 code = 355) BLOOD UREA 26 mg/dL 7-21 H NITROGEN (BEAKER) (test code = 354) CREATININE 1.33 mg/dL 0.57-1.25 H (BEAKER) (test code = 358) GLUCOSE RANDOM 66 mg/dL 70-105 L (BEAKER) (test code = 652) CALCIUM (BEAKER) 8.4 mg/dL 8.4-10.2 (test code = 697) AST (SGOT) 9 U/L 5-34 (BEAKER) (test code = 353) ALT (SGPT) 12 U/L 6-55 (BEAKER) (test code = 347) EGFR (BEAKER) 49 Interpretatio n of eGFR (test code = [...] not appl icable for dialysis patien ts Security Patrol Officer ID - SARAY [id number] 07:11:44 Test Item Value Reference Range Interpretation Comments HAPTOGLOBIN (BEAKER) (test code = 243 mg/dL 14-258 366) Security Patrol Officer ID - SARAY BPT/[id number] 06:55:39 Test Item Value Reference Range Interpretation Comments PROTIME (BEAKER) (test code = 15.1 seconds 11.9-14.2 H 759) INR (BEAKER) (test code = 370) 1.27 <=5.90 PARTIAL THROMBOPLASTIN TIME 39.2 seconds 22.5-36.0 H (BEAKER) (test code = 760) RECOMMENDED COUMADIN/WARFARIN INR THERAPY RANGESSTANDARD DOSE: 2.0 - 3.0 Includes: PROPHYLAXIS for venous thrombosis, systemic embolization; TREATMENT for venous thrombosis and/or pulmonary embolus.HIGH RISK: Target INR is 2.5-3.5 for patients with mechanical heart valves.CBC W/PLT COUNT & AUTO [id number] 06:33:20 Test Item Value Reference Range Interpretation Comments WHITE BLOOD CELL COUNT (BEAKER) 10.7 K/ L 3.5-10.5 H (test code = 775) RED BLOOD CELL COUNT (BEAKER) 2.08 M/ L 3.93-5.22 L (test code = 761) HEMOGLOBIN (BEAKER) (test code = 5.6 GM/DL 11.2-15.7 LL 410) HEMATOCRIT (BEAKER) (test code = 18.6 % 34.1-44.9 L 411) MEAN CORPUSCULAR VOLUME (BEAKER) 89 fL 79-95 (test code = 753) MEAN CORPUSCULAR HEMOGLOBIN 26.9 pg 25.6-32.2 (BEAKER) (test code = 751) MEAN CORPUSCULAR HEMOGLOBIN CONC 30.1 GM/DL 32.2-35.5 L (BEAKER) (test code = 752) RED CELL DISTRIBUTION WIDTH 17.1 % 11.7-14.4 H (BEAKER) (test code = 412) PLATELET COUNT (BEAKER) (test 402 K/CU MM 150-450 code = 756) MEAN PLATELET VOLUME (BEAKER) 10.0 fL 9.4-12.3 (test code = 754) NUCLEATED RED BLOOD CELLS 0 /100 WBC 0-0 (BEAKER) (test code = 413) NEUTROPHILS RELATIVE PERCENT 81 % (BEAKER) (test code = 429) LYMPHOCYTES RELATIVE PERCENT 8 % (BEAKER) (test code = 430) MONOCYTES RELATIVE PERCENT 6 % (BEAKER) (test code = 431) EOSINOPHILS RELATIVE PERCENT 0 % (BEAKER) (test code = 432) BASOPHILS RELATIVE PERCENT 0 % (BEAKER) (test code = 437) NEUTROPHILS ABSOLUTE COUNT 8.62 K/ L 1.56-6.13 H (BEAKER) (test code = 670) LYMPHOCYTES ABSOLUTE COUNT 0.83 K/ L 1.18-3.74 L (BEAKER) (test code = 414) MONOCYTES ABSOLUTE COUNT (BEAKER) 0.66 K/ L 0.24-0.36 H (test code = 415) EOSINOPHILS ABSOLUTE COUNT 0.02 K/ L 0.04-0.36 L (BEAKER) (test code = 416) BASOPHILS ABSOLUTE COUNT (BEAKER) 0.03 K/ L 0.01-0.08 (test code = 417) IMMATURE GRANULOCYTES-RELATIVE 5.00 % 0.00-1.00 H PERCENT (BEAKER) (test code = 2801) POCT-GLUCOSE [id number] 21:43:27 Test Item Value Reference Range Interpretation Comments POC-GLUCOSE METER 94 mg/dL 70-110 : TESTED Bryan Becerril [facility] 6720 (BEAKER) (test code = [place], 1538) [address]: Security Patrol Officer/Techni waylon ID = [id number] for STAS ALONZO POCT-GLUCOSE [id number] 16:10:02 Test Item Value Reference Range Interpretation Comments POC-GLUCOSE METER 129 mg/dL 70-110 H : TESTED A T [facility] 6720 (BEAKER) (test code = [facility], 1538) 755[address]: Security Patrol Officer/Techni waylon ID = [id number] for Yovanny Cox [id number] 13:11:35 Test Item Value Reference Range Interpretation Comments HAPTOGLOBIN (BEAKER) (test code = 246 mg/dL 14-258 366) Security Patrol Officer ID - ADMINPOCT-GLUCOSE [id number] 11:31:22 Test Item Value Reference Range Interpretation Comments POC-GLUCOSE METER 90 mg/dL 70-110 : TESTED A T [facility] 6720 (BEAKER) (test code = [facility], 1538) 14212: Security Patrol Officer/Techni waylon ID = [id number] for Yovanny Keating POCT-GLUCOSE [id number] 07:42:16 Test Item Value Reference Range Interpretation Comments POC-GLUCOSE METER 78 mg/dL 70-110 : TESTED A T [facility] 6720 (BEAKER) (test code = [facility], 1538) 49030: Security Patrol Officer/Techni waylon ID = [id number] for Yovanny Keating (CELLAVISION MANUAL DIFF)2023-01-30 07:04:24 Test Item Value Reference Range Interpretation Comments NEUTROPHILS - REL 92 % (CELLAVISION)(BEAKER) (test code = 2816) LYMPHOCYTES - REL 1 % (CELLAVISION)(BEAKER) (test code = 2817) MONOCYTES - REL 5 % (CELLAVISION)(BEAKER) (test code = 2818) METAMYELOCYTES - REL 1 % 0-0 H (CELLAVISION)(BEAKER) (test code = 2821) MYELOCYTES - REL 1 % 0-0 H (CELLAVISION)(BEAKER) (test code = 2822) NEUTROPHILS - ABS 10.95 K/ul 1.56-6.13 H (CELLAVISION)(BEAKER) (test code = 2830) LYMPHOCYTES - ABS 0.12 K/ul 1.18-3.74 L (CELLAVISION)(BEAKER) (test code = 2831) MONOCYTES - ABS 0.60 K/uL 0.24-0.36 H (CELLAVISION)(BEAKER) (test code = 2832) METAMYELOCYTES - ABS 0.12 K/uL 0.00-0.00 H (CELLAVISION)(BEAKER) (test code = 2836) MYELOCYTES-ABS 0.12 K/uL 0.00-0.00 H (CELLAVISION)(BEAKER) (test code = 2837) TOTAL COUNTED (BEAKER) (test code 100 = 1351) WBC MORPHOLOGY (BEAKER) (test Normal code = 487) GIANT PLATELETS (BEAKER) (test Present code = 313) POLYCHROMATOPHILLIC RBCS(BEAKER) 3+ many (test code = 478) HYPOCHROMIA (BEAKER) (test code = 1+ few 963) ANISOCYTOSIS (BEAKER) (test code 2+ moderate = 961) MICROCYTES (BEAKER) (test code = 2+ moderate 965) POIKILOCYTES (BEAKER) (test code 1+ few = 966) ELLIPTOCYTES (BEAKER) (test code 1+ few = 962) ARTIFACT (CELLAVISION)(BEAKER) Present (test code = 3432) PLATELET CONCENTRATION Adequate (CELLAVISION)(BEAKER) (test code = 3438) Security Patrol Officer ID - [id number] ID - saray Chen comments: Slide comments:CBC W/PLT COUNT & AUTO [id number] 07:04:22 Test Item Value Reference Range Interpretation Comments WHITE BLOOD CELL COUNT (BEAKER) 11.9 K/ L 3.5-10.5 H (test code = 775) RED BLOOD CELL COUNT (BEAKER) 2.17 M/ L 3.93-5.22 L (test code = 761) HEMOGLOBIN (BEAKER) (test code = 5.9 GM/DL 11.2-15.7 LL 410) HEMATOCRIT (BEAKER) (test code = 19.2 % 34.1-44.9 L 411) MEAN CORPUSCULAR VOLUME (BEAKER) 89 fL 79-95 (test code = 753) MEAN CORPUSCULAR HEMOGLOBIN 27.2 pg 25.6-32.2 (BEAKER) (test code = 751) MEAN CORPUSCULAR HEMOGLOBIN CONC 30.7 GM/DL 32.2-35.5 L (BEAKER) (test code = 752) RED CELL DISTRIBUTION WIDTH 17.0 % 11.7-14.4 H (BEAKER) (test code = 412) PLATELET COUNT (BEAKER) (test 405 K/CU MM 150-450 code = 756) MEAN PLATELET VOLUME (BEAKER) 10.1 fL 9.4-12.3 (test code = 754) NUCLEATED RED BLOOD CELLS 0 /100 WBC 0-0 (BEAKER) (test code = 413) LACTATE DEHYDROGENASE (LDH)2023-01-30 05:59:14 Test Item Value Reference Range Interpretation Comments LACTATE DEHYDROGENASE (BEAKER) (test 305 U/L 125-220 H code = 635) Security Patrol Officer ID - [id number] 05:59:13 Test Item Value Reference Range Interpretation Comments PHOSPHORUS (BEAKER) (test code = 2.7 mg/dL 2.3-4.7 604) Security Patrol Officer ID - [id number] 05:59:12 Test Item Value Reference Range Interpretation Comments MAGNESIUM (BEAKER) (test code = 1.8 mg/dL 1.6-2.6 627) Security Patrol Officer ID - MARCOCOMPREHENSIVE METABOLIC [id number] 05:59:11 Test Item Value Reference Range Interpretation Comments TOTAL PROTEIN 5.0 gm/dL 6.0-8.3 L (BEAKER) (test code = 770) ALBUMIN (BEAKER) 2.8 g/dL 3.5-5.0 L (test code = 1145) ALKALINE 197 U/L 40-150 H PHOSPHATASE (BEAKER) (test code = 346) BILIRUBIN TOTAL 0.6 mg/dL 0.2-1.2 (BEAKER) (test code = 377) SODIUM (BEAKER) 134 meq/L 136-145 L (test code = 381) POTASSIUM (BEAKER) 4.3 meq/L 3.5-5.1 (test code = 379) CHLORIDE (BEAKER) 97 meq/L 98-107 L (test code = 382) CO2 (BEAKER) (test 27 meq/L 22-29 code = 355) BLOOD UREA 29 mg/dL 7-21 H NITROGEN (BEAKER) (test code = 354) CREATININE 1.49 mg/dL 0.57-1.25 H (BEAKER) (test code = 358) GLUCOSE RANDOM 72 mg/dL 70-105 (BEAKER) (test code = 652) CALCIUM (BEAKER) 8.7 mg/dL 8.4-10.2 (test code = 697) AST (SGOT) 13 U/L 5-34 (BEAKER) (test code = 353) ALT (SGPT) 13 U/L 6-55 (BEAKER) (test code = 347) EGFR (BEAKER) 43 Interpretatio n of eGFR (test code = [...] not appl icable for dialysis patien ts Security Patrol Officer ID - MARCOPT/[id number] 05:42:43 Test Item Value Reference Range Interpretation Comments PROTIME (BEAKER) (test code = 14.1 seconds 11.9-14.2 759) INR (BEAKER) (test code = 370) 1.11 <=5.90 PARTIAL THROMBOPLASTIN TIME 37.9 seconds 22.5-36.0 H (BEAKER) (test code = 760) RECOMMENDED COUMADIN/WARFARIN INR THERAPY RANGESSTANDARD DOSE: 2.0 - 3.0 Includes: PROPHYLAXIS for venous thrombosis, systemic embolization; TREATMENT for venous thrombosis and/or pulmonary embolus.HIGH RISK: Target INR is 2.5-3.5 for patients with mechanical heart valves.POCT-GLUCOSE [id number] 21:54:07 Test Item Value Reference Range Interpretation Comments POC-GLUCOSE METER 82 mg/dL 70-110 : TESTED A T [facility] 6720 (Upside) (test code = [place], 1538) 15874: Security Patrol Officer/Techni waylon ID = [id number] for STAS ALONZO POCT-GLUCOSE [id number] 16:27:58 Test Item Value Reference Range Interpretation Comments POC-GLUCOSE METER 128 mg/dL 70-110 H : TESTED A T [facility] 6720 (Upside) (test code = ROZ Gutiérrez [facility], 1538) 17098: Security Patrol Officer/Techni waylon ID = [id number] for Nilda Pavon POCT-GLUCOSE [id number] 12:16:46 Test Item Value Reference Range Interpretation Comments POC-GLUCOSE METER 102 mg/dL 70-110 : TESTED A T [facility] 6720 (BEAKER) (test code = [facility] [employer] [facility], 1538) 55314: Security Patrol Officer/Techni waylon ID = [id number] for PE DIONNE PRADO (CELLAVISION MANUAL DIFF)2023-01-29 09:50:53 Test Item Value Reference Range Interpretation Comments NEUTROPHILS - REL 94 % (CELLAVISION)(BEAKER) (test code = 2816) LYMPHOCYTES - REL 3 % (CELLAVISION)(BEAKER) (test code = 2817) MONOCYTES - REL 2 % (CELLAVISION)(BEAKER) (test code = 2818) METAMYELOCYTES - REL 1 % 0-0 H (CELLAVISION)(BEAKER) (test code = 2821) NEUTROPHILS - ABS 11.37 K/ul 1.56-6.13 H (CELLAVISION)(BEAKER) (test code = 2830) LYMPHOCYTES - ABS 0.36 K/ul 1.18-3.74 L (CELLAVISION)(BEAKER) (test code = 2831) MONOCYTES - ABS 0.24 K/uL 0.24-0.36 (CELLAVISION)(BEAKER) (test code = 2832) METAMYELOCYTES - ABS 0.12 K/uL 0.00-0.00 H (CELLAVISION)(BEAKER) (test code = 2836) TOTAL COUNTED (BEAKER) (test code 100 = 1351) WBC MORPHOLOGY (BEAKER) (test code Normal = 487) PLT MORPHOLOGY (BEAKER) (test code Normal = 486) HYPOCHROMIA (BEAKER) (test code = 1+ few 963) ANISOCYTOSIS (BEAKER) (test code = 1+ few 961) MICROCYTES (BEAKER) (test code = 1+ few 965) POIKILOCYTES (BEAKER) (test code = 1+ few 966) SCHISTOCYTES (BEAKER) (test code = 1+ few 765) ARTIFACT (CELLAVISION)(BEAKER) Present (test code = 3432) PLATELET CONCENTRATION Adequate (CELLAVISION)(BEAKER) (test code = 3438) Security Patrol Officer ID - [place] OverholtUser comments: Slide comments:CBC W/PLT COUNT & AUTO [id number] 09:50:51 Test Item Value Reference Range Interpretation Comments WHITE BLOOD CELL COUNT (BEAKER) 12.1 K/ L 3.5-10.5 H (test code = 775) RED BLOOD CELL COUNT (BEAKER) 2.18 M/ L 3.93-5.22 L (test code = 761) HEMOGLOBIN (BEAKER) (test code = 5.9 GM/DL 11.2-15.7 LL 410) HEMATOCRIT (BEAKER) (test code = 19.5 % 34.1-44.9 L 411) MEAN CORPUSCULAR VOLUME (BEAKER) 89 fL 79-95 (test code = 753) MEAN CORPUSCULAR HEMOGLOBIN 27.1 pg 25.6-32.2 (BEAKER) (test code = 751) MEAN CORPUSCULAR HEMOGLOBIN CONC 30.3 GM/DL 32.2-35.5 L (BEAKER) (test code = 752) RED CELL DISTRIBUTION WIDTH 17.1 % 11.7-14.4 H (BEAKER) (test code = 412) PLATELET COUNT (BEAKER) (test 380 K/CU MM 150-450 code = 756) MEAN PLATELET VOLUME (BEAKER) 10.0 fL 9.4-12.3 (test code = 754) NUCLEATED RED BLOOD CELLS 0 /100 WBC 0-0 (BEAKER) (test code = 413) POCT-GLUCOSE [id number] 07:48:29 Test Item Value Reference Range Interpretation Comments POC-GLUCOSE METER 76 mg/dL 70-110 : TESTED A T [facility] 6720 (BEAKER) (test code = ROZ IBAR[place], 1538) 02437: Security Patrol Officer/Techni waylon ID = [id number] for Nilda Bee LACTATE DEHYDROGENASE (LDH)2023-01-29 07:03:52 Test Item Value Reference Range Interpretation Comments LACTATE DEHYDROGENASE (BEAKER) (test 357 U/L 125-220 H code = 635) Security Patrol Officer ID - [id number] 07:03:51 Test Item Value Reference Range Interpretation Comments PHOSPHORUS (BEAKER) (test code = 2.6 mg/dL 2.3-4.7 604) Security Patrol Officer ID - ADMINCOMPREHENSIVE METABOLIC [id number] 07:03:50 Test Item Value Reference Range Interpretation Comments TOTAL PROTEIN 5.0 gm/dL 6.0-8.3 L (BEAKER) (test code = 770) ALBUMIN (BEAKER) 2.8 g/dL 3.5-5.0 L (test code = 1145) ALKALINE 195 U/L 40-150 H PHOSPHATASE (BEAKER) (test code = 346) BILIRUBIN TOTAL 0.6 mg/dL 0.2-1.2 (BEAKER) (test code = 377) SODIUM (BEAKER) 133 meq/L 136-145 L (test code = 381) POTASSIUM (BEAKER) 4.3 meq/L 3.5-5.1 (test code = 379) CHLORIDE (BEAKER) 96 meq/L 98-107 L (test code = 382) CO2 (BEAKER) (test 29 meq/L 22-29 code = 355) BLOOD UREA 29 mg/dL 7-21 H NITROGEN (BEAKER) (test code = 354) CREATININE 1.58 mg/dL 0.57-1.25 H (BEAKER) (test code = 358) GLUCOSE RANDOM 75 mg/dL 70-105 (BEAKER) (test code = 652) CALCIUM (BEAKER) 8.4 mg/dL 8.4-10.2 (test code = 697) AST (SGOT) 13 U/L 5-34 (BEAKER) (test code = 353) ALT (SGPT) 14 U/L 6-55 (BEAKER) (test code = 347) EGFR (BEAKER) 40 Interpretatio n of eGFR (test code = [...] not appl icable for dialysis patien ts Security Patrol Officer ID - [id number] 07:03:49 Test Item Value Reference Range Interpretation Comments MAGNESIUM (BEAKER) (test code = 2.0 mg/dL 1.6-2.6 627) Security Patrol Officer ID - [id number] 06:40:14 Test Item Value Reference Range Interpretation Comments HAPTOGLOBIN (BEAKER) (test code = 253 mg/dL 14-258 366) Security Patrol Officer ID - [id number]/[id number] 06:29:50 Test Item Value Reference Range Interpretation Comments PROTIME (BEAKER) (test code = 14.7 seconds 11.9-14.2 H 759) INR (BEAKER) (test code = 370) 1.23 <=5.90 PARTIAL THROMBOPLASTIN TIME 43.2 seconds 22.5-36.0 H (BEAKER) (test code = 760) RECOMMENDED COUMADIN/WARFARIN INR THERAPY RANGESSTANDARD DOSE: 2.0 - 3.0 Includes: PROPHYLAXIS for venous thrombosis, systemic embolization; TREATMENT for venous thrombosis and/or pulmonary embolus.HIGH RISK: Target INR is 2.5-3.5 for patients with mechanical heart valves.CALCIUM, [id number] 05:57:25 Test Item Value Reference Range Interpretation Comments CALCIUM IONIZED (BEAKER) (test 1.12 mmol/L 1.12-1.27 code = 698) PH, BLOOD (BEAKER) (test code = 7.40 1810) POCT-GLUCOSE [id number] 22:08:36 Test Item Value Reference Range Interpretation Comments POC-GLUCOSE METER 115 mg/dL 70-110 H : TESTED A T [facility] 6720 (BEAKER) (test code = [facility] [employer] [facility], 1538) 774[address]: Security Patrol Officer/Techni waylon ID = [id number] for STAS BERG POCT-GLUCOSE [id number] 15:54:15 Test Item Value Reference Range Interpretation Comments POC-GLUCOSE METER 140 mg/dL 70-110 H : TESTED A T [facility] 6720 (BEAKER) (test code = [facility] [employer] [facility], 1538) 24347: Security Patrol Officer/Techni waylon ID = [id number] for Yovanny Cox Body fluid culture + gram [id number] 15:25:52 Test Item Value Reference Range Interpretation Comments Result (test code = 6463-4) No growth Lab Interpretation (test code = Normal 48735-6) [facility] [id number] 15:25:52 Test Item Value Reference Range Interpretation Comments CULTURE (BEAKER) (test code = 1095) No growth SARS-CoV2/RT-PCR (Asymptomatic ONLY)2023-01-28 13:16:20 Test Item Value Reference Interpretation Comments Range SARS-COV2/RT-PCR Negative Negative The SARS-Co V-2 (test code = target nucleic 93634-9) acids are not detected in thi s specimen. Negat david results do not preclude SARS-C oV-2 infection and should not be u sed as the sole bas is for patient management decisions. Nega tive results must be combined with clinical observations, patient history , and epidemiolog ical information. A false negative result may occu r if a specimen is improperly collected, transported or handled. This S ARS CoV-2 test is a rapid, real-rm e RT-PCR test intended for th e qualitative detection of nucleic acid fr om SARS-CoV-2 in a nasopharyngeal swab specimen collec tomy from individual s suspected of COVID-19 by the ir healthcare provider. AREN (test code = This test has been AREN) authorized by FDA under an EUA for use by authorized laboratories. This test is only authorized for the duration of the declaration that circumstances exist justifying the authorization of emergency use of in vitro diagnostic tests for detection and/or diagnosis of COVID-19 under Section 564(b)(1) of the Federal Food, Drug and Cosmetic Act, 21 U.S.C. 360bbb-3(b)(1), unless the authorization is terminated or revoked sooner. Fact Sheet for Healthcare Providers: https://www.[employer]/Documents/Xp ert%20Xpress%20SAR S%20CoV-2/Fact%20S heets/302-1652%20S ARS-COV-2%20HEALTH CARE%20PROVIDERS%2 0FACT%20SHEET.pdf Fact Sheet for Healthcare Patients: https://www.[employer]/Documents/Xp ert%20Xpress%20SAR S%20CoV-2/Fact%20S heets/302-3801%20S ARS-COV-2%20PATIEN T%20FACT%20SHEET.p df Lab Interpretation Normal (test code = 16469-8) [facility])2023-01-28 13:16:20 Test Item Value Reference Range Interpretation Comments SARS-COV2/RT-PCR Negative Negative The SARS-Co V-2 target (test code = nucleic acids a re not 3185882) detected in thi s specimen. Negative result s do not preclude SARS-C oV-2 infection and s hould not be used as the marcello e basis for patient managem ent decisions. Nega tive results must be combine d with clinical observ ations, patient history , and epidemiological information. A false negativ e result may occur if a spec imen is improperly teresa ected, transported or handled. This SARS CoV-2 test is a rapid, real-time RT-PC R test intended for th e qualitative detection of nu cleic acid from SARS-CoV-2 in a nasopharyngeal swab specimen collected from individuals suspected of CO VID-19 by their healthcar e provider. This test has been authorized by FDA under an EUA for use by authorized laboratories. This test is only authorized for the duration of the declaration that circumstances exist justifying the authorization of emergency use of in vitro diagnostic tests for detection and/or diagnosis of COVID-19 under Section 564(b)(1) of the Federal Food, Drug and Cosmetic Act, 21 U.S.C. 360bbb-3(b)(1), unless the authorization is terminated or revoked sooner. Fact Sheet for Healthcare Providers: https://www.[employer]/Documents/Xpert%20Xpress%20SARS%20CoV-2/Fact%20Sheets/302-3802%49UACV-RCP-7%20 HEALTHCARE%20PROVIDERS%20FACT%20SHEET.pdf Fact Sheet for Healthcare Patients: https://www.[employer]/Documents/Xpert%20Xp ress%20SARS%20CoV-2/Fact%20Sheets/3023801%81TMHF-BCB-8%20PATIENT%20FACT%20SHEET .[id number] 11:54:41 Test Item Value Reference Range Interpretation Comments HAPTOGLOBIN (BEAKER) (test code = 227 mg/dL 14-258 366) Security Patrol Officer ID - SARAY BPOCT-GLUCOSE [id number] 11:42:28 Test Item Value Reference Range Interpretation Comments POC-GLUCOSE METER 114 mg/dL 70-110 H : TESTED A T [facility] 6720 (BEAKER) (test code = [facility] [employer] [facility], 1538) 01243: Security Patrol Officer/Techni waylon ID = [id number] for Yovanny Cox RETICULOCYTE [id number] 08:06:13 Test Item Value Reference Range Interpretation Comments RETICULOCYTE COUNT PCT (BEAKER) (test 2.9 % 0.5-1.7 H code = 575) Security Patrol Officer ID - 6000POCT-GLUCOSE [id number] 07:43:33 Test Item Value Reference Range Interpretation Comments POC-GLUCOSE METER 86 mg/dL 70-110 : TESTED A T [facility] 6720 (BEAKER) (test code = [employer] [facility], 1538) 81174: Security Patrol Officer/Techni wyalon ID = [id number] for Yovanny Keating LACTATE DEHYDROGENASE (LDH)2023-01-28 06:26:05 Test Item Value Reference Range Interpretation Comments LACTATE DEHYDROGENASE (BEAKER) (test 343 U/L 125-220 H code = 635) Security Patrol Officer ID - [id number] 06:26:04 Test Item Value Reference Range Interpretation Comments PHOSPHORUS (BEAKER) (test code = 2.5 mg/dL 2.3-4.7 604) Security Patrol Officer ID - [id number] 06:26:03 Test Item Value Reference Range Interpretation Comments MAGNESIUM (BEAKER) (test code = 2.4 mg/dL 1.6-2.6 627) Security Patrol Officer ID - MMCOMPREHENSIVE METABOLIC [id number] 06:26:02 Test Item Value Reference Range Interpretation Comments TOTAL PROTEIN 4.9 gm/dL 6.0-8.3 L (BEAKER) (test code = 770) ALBUMIN (BEAKER) 2.7 g/dL 3.5-5.0 L (test code = 1145) ALKALINE 192 U/L 40-150 H PHOSPHATASE (BEAKER) (test code = 346) BILIRUBIN TOTAL 0.6 mg/dL 0.2-1.2 (BEAKER) (test code = 377) SODIUM (BEAKER) 133 meq/L 136-145 L (test code = 381) POTASSIUM (BEAKER) 4.2 meq/L 3.5-5.1 (test code = 379) CHLORIDE (BEAKER) 95 meq/L 98-107 L (test code = 382) CO2 (BEAKER) (test 30 meq/L 22-29 H code = 355) BLOOD UREA 28 mg/dL 7-21 H NITROGEN (BEAKER) (test code = 354) CREATININE 1.72 mg/dL 0.57-1.25 H (BEAKER) (test code = 358) GLUCOSE RANDOM 77 mg/dL 70-105 (BEAKER) (test code = 652) CALCIUM (BEAKER) 8.8 mg/dL 8.4-10.2 (test code = 697) AST (SGOT) 14 U/L 5-34 (BEAKER) (test code = 353) ALT (SGPT) 15 U/L 6-55 (BEAKER) (test code = 347) EGFR (BEAKER) 36 Interpretatio n of eGFR (test code = 1092) mL/min/1.[address] age Description sq m Result G1 Veronica l or high >=90 G2 Mildly decreased 60-89 G3a Mildl y to moderately 45-5 9 G3b Moderately to s everely 30-44 G4 Sever ly decreased 15-29 G5 Kidney failure <15Repo rted eGFR is based on the CKD-EPI 1 equation t hat does not use a race coefficientEsti mated GFR is not as accur ate as Creatinine Katelyn rachell in predicting glom erular filtration rate . Estimated GFR is not appl icable for dialysis patien ts Security Patrol Officer ID - [id number] 06:16:29 Test Item Value Reference Range Interpretation Comments PROTIME (BEAKER) (test code = 14.1 seconds 11.9-14.2 759) INR (BEAKER) (test code = 370) 1.11 <=5.90 PARTIAL THROMBOPLASTIN TIME 40.2 seconds 22.5-36.0 H (BEAKER) (test code = 760) RECOMMENDED COUMADIN/WARFARIN INR THERAPY RANGESSTANDARD DOSE: 2.0 - 3.0 Includes: PROPHYLAXIS for venous thrombosis, systemic embolization; TREATMENT for venous thrombosis and/or pulmonary embolus.HIGH RISK: Target INR is 2.5-3.5 for patients with mechanical heart valves.CBC W/PLT COUNT & AUTO [id number] 06:05:35 Test Item Value Reference Range Interpretation Comments WHITE BLOOD CELL COUNT (BEAKER) 10.9 K/ L 3.5-10.5 H (test code = 775) RED BLOOD CELL COUNT (BEAKER) 2.29 M/ L 3.93-5.22 L (test code = 761) HEMOGLOBIN (BEAKER) (test code = 6.2 GM/DL 11.2-15.7 L 410) HEMATOCRIT (BEAKER) (test code = 20.1 % 34.1-44.9 L 411) MEAN CORPUSCULAR VOLUME (BEAKER) 88 fL 79-95 (test code = 753) MEAN CORPUSCULAR HEMOGLOBIN 27.1 pg 25.6-32.2 (BEAKER) (test code = 751) MEAN CORPUSCULAR HEMOGLOBIN CONC 30.8 GM/DL 32.2-35.5 L (BEAKER) (test code = 752) RED CELL DISTRIBUTION WIDTH 17.1 % 11.7-14.4 H (BEAKER) (test code = 412) PLATELET COUNT (BEAKER) (test 353 K/CU MM 150-450 code = 756) MEAN PLATELET VOLUME (BEAKER) 10.0 fL 9.4-12.3 (test code = 754) NUCLEATED RED BLOOD CELLS 0 /100 WBC 0-0 (BEAKER) (test code = 413) NEUTROPHILS RELATIVE PERCENT 80 % (BEAKER) (test code = 429) LYMPHOCYTES RELATIVE PERCENT 7 % (BEAKER) (test code = 430) MONOCYTES RELATIVE PERCENT 7 % (BEAKER) (test code = 431) EOSINOPHILS RELATIVE PERCENT 0 % (BEAKER) (test code = 432) BASOPHILS RELATIVE PERCENT 0 % (BEAKER) (test code = 437) NEUTROPHILS ABSOLUTE COUNT 8.74 K/ L 1.56-6.13 H (BEAKER) (test code = 670) LYMPHOCYTES ABSOLUTE COUNT 0.76 K/ L 1.18-3.74 L (BEAKER) (test code = 414) MONOCYTES ABSOLUTE COUNT (BEAKER) 0.80 K/ L 0.24-0.36 H (test code = 415) EOSINOPHILS ABSOLUTE COUNT 0.04 K/ L 0.04-0.36 (BEAKER) (test code = 416) BASOPHILS ABSOLUTE COUNT (BEAKER) 0.02 K/ L 0.01-0.08 (test code = 417) IMMATURE GRANULOCYTES-RELATIVE 4.90 % 0.00-1.00 H PERCENT (BEAKER) (test code = 2801) CALCIUM, [id number] 06:01:13 Test Item Value Reference Range Interpretation Comments CALCIUM IONIZED (BEAKER) (test 1.15 mmol/L 1.12-1.27 code = 698) PH, BLOOD (BEAKER) (test code = 7.40 1810) POCT-GLUCOSE [id number] 21:50:07 Test Item Value Reference Range Interpretation Comments POC-GLUCOSE METER 113 mg/dL 70-110 H : TESTED A T [facility] 6720 (BEAKER) (test code = [facility], 1538) 33441: Security Patrol Officer/Techni waylon ID = [id number] for Ca Yariel srinivasan POCT-GLUCOSE [id number] 16:53:43 Test Item Value Reference Range Interpretation Comments POC-GLUCOSE METER 109 mg/dL 70-110 : TESTED A T [facility] 6720 (BEAKER) (test code = [facility], 1538) 13584: Security Patrol Officer/Techni waylon ID = [id number] for PE DIONNE PRADO [id number] 12:46:42 Test Item Value Reference Range Interpretation Comments Case Report (test code Medical Cytology = 104) Report Case: [id number] Authorizing Provider: Carlos Estrada MD Collected: 01/25/2023 03:39 PM Ordering Location: [address] Received: 01/26/2023 08:50 AM Service Pathologist: Daija Lennon MD Specimen: Peritoneal Fluid DIAGNOSTIC CATEGORY NEGATIVE FOR (test code = 2754) MALIGNANCY DIAGNOSIS (test code = k4deqINhINAxy3feTGPrbZ 3220) FuZzEwMzNcZnRuYmpcdWMx IHtccnRmMVxlcGljMTAyMD PjTV9fsIovrEn0rXapBZOi lpF4xRSbAHrwd8fbRYE8a1 hzyalzAZDyQUjiWt3xpETb kHpbEzOiGVXcJUb5qS52XE DslS0ceXZwCKb2SRRdiBHw voYxIyBiOTMyaVLuzAH9RL YlGS2mfzeoPBrvOAltINFn uyO8VLVsbFQzP2XhYVOxBY 0ljoepFEZ6SLmkCRLyZYC8 WpCjBRMuq3Coctw7YxYnmW FyZFxwbGFpblxmczIwIFBF AmqZC42HXKwgAhuJHMQuBJ CSEE1OEZeABnTURbAbF5YF ANGCCL6GSjn2YGxikzPfiO KeVA7WRMbmxEc8HKAxz0Po fCVaaCjhED6jtTbzRUXlWM WztR1oPG24HS1yzVKtg2Ye pWazPPcxQERcDuSff0bls6 VuZCBvZiBtZXNvdGhlbGlh uPVkEHmvz4rwQAN8t1xqhX YxXHNzdGUxODAwMFxhbnNp ZYTrXdpjhhsfUEKrIIM0ev CwHCVtVIswLKTgYWumQf8h qEHjsKhcQvTqAWLzh3rvya ERdkcogQq8u7veBJGwUuH9 kLDwEOnbY0glmvXxwYVoDD BgZYq8hH13XFMzlT1dfSEf DGysuePmVzP4VDsbOLUdNw I1LKZtaINnXWWoA9kgGJNp LChfPKWcTBobgUQcLXJ2sL yyl7V1eXHryWXomErnUjAd KmTpNgUTb4PbZWx6mIcfF8 IqAMHtGbO6qQZbKKZoBZov ZJSjDQTazfT3xD50JLgcik Q7fLTyx1Vso93fg862mB4v nJCnZVI3COKdCZSzrXKdKJ WeIRU7FXUgrQDnQ5ysLSDz QO5gljqkBCjyRIgvZEDqnS P3INTyxMOgZ8VdGVCtHPpz CBXonju5IrPaWj2nmHScgN hnZJwau2hlq3farMOwYay9 BWHeNfRsLsveVIuak7Jde0 pjDZOwnc9zNVT7zNVdoRxa j6M5uEWmMHYfhXPsGERtIV 0veHZlHDIljJ4kiygvEOVm YnJkcmhlYWRccGdicmRyZm 6ikDvhNRC5ERnsF1arqB9z WdE8AIywF6wkgR4pZJk9EW unSOJexYL4pmB1NAFbcLLk N9VoxA4rWUZdCD4ecbr6k7 vrFRD5HXewRVHzIfQ7dpE7 NDBcaGVhZGVyeTcyMFxmb2 98ZHQ3SzGjQSMbg8DjQ6Kq mLcvR90onSspD51eKQSiwW uawB3izRcfkS2pRtEnZtNz GZrhcPyjSO8wALVjF5hthH NlMPMaKBGlR4ioFiWozY6i gXtlUYxjlmVaKPKdOsm4RT TrrFXoDVNdKlg7VRYfIFTj W80xwcguLZW5zU6gf8xgd4 KmIPzvXXG1EHKwf62fTWlm rjC1HSfrYb64YHpaDMP1OL qaEMC6cP== CPT Code(s) (test code e6loyQUsJYZpwHAkZDEzXQ = 3357) nuvdFvPQFyxNVwA3Ehzzxb FZmgXW9mYH4mwLefmQLkwS EpJCMnTsXdq0imt343sEEq n6qfTVIKwwluzOp5fTkkQ5 2ie7A5MmloT33mtHJoXFB4 YTDbRXLtvNKwTNMhKPY2FC GtqHOxP3xrYDFqOU3qktbu YCzoMCvaFLBcaRK7HEXmyV YnE4VjVKBuTChcWWKapwj3 PdNzOr7wdETjzEjkVMufEP JkXHBsYWluXGZzMjAgODgx UEvbLIm1GyC2KWNqoh2= CLINICAL DATA (test a8kdoAGjMPTyuBOzGFDjEX code = 3355) zeioKaHXWizUApN7Bqqksy FUstAU2kBL6mfBkoyDLypO PlMTLpVwPxg0ndr085fQYt r1hdGMTCsanmyWd7yUxnY7 2tn6Z3LzknF4dvCDJhGEjl ZOHaSJcyuEVnVGr1ODPakJ VydzEyMjQwXHBhcGVyaDE1 ZPVyMI2ykyicHDbgMWoaRV TezgV3FOAxcXXcG1SjUNIz CL1hgrahGKC8STvkOQOoLM R5JfUpSWUtq5Ufvvw0CcEd cGFyZFxwbGFpblxmczIwXG YiNNO0WCF1Lt7kTB0nET8c nTAfcmsbmFcaG29fwVcwgJ BEDZpieq23RMRhDLHuf1Gz BXvKYQL1bD8mt9ZvLOLfMK Ljb9KktUppLARebMC1UORt wP3gRQDrCGL4zIUfIDmOLZ Amm7VzMKpAACPuhOAeLDZk W5ApD9VpQTksOD5aGXovSI tJIHJlcXVpcmluZyBIRCwg YJ2nAYNJJX0lhqtoIqDbP7 MeGHZdzIzyKWLxUn3tPR99 o7YxMR4ifnxcv4HjxCMwQB Waeb2hrRJjfELib7njtXLc dCBhYmRvbWluYWwgcGFpbi IiwwPmPNDlLQFesGB2TD2f kQ3pISPxsL5oq1FzGTLuVS MwxaP3vS5xMMVvgR9gHRVd LlxwYXJ9 SPECIMEN SOURCE (test l9nynLErULXnvUUiVQGlMC code = 3377) bnkjCsUUUcxHTkN9Mfrpms QCwxQV7pIY2czBoqmAYisC SbPDCsTsXrd1ijp670fXMx m2daXNPGnqljwDw4nFwzM8 5tj8D4CvqsR89doEUkMHU8 EELwYCHfcEJgZZMjQBL1KA ImuQKfE0ikUDKxHV4paijr UQgcLLugLVUvrZM9SIWzpV JvJ4FuTJFaMJgkHYVeqyl9 PhXgZb0giZUrcPpnIKpzTN JkXHBsYWluXGZzMjAgUEVS SVRPTkVBTCBGTFVJRFxwYX J9 GROSS DESCRIPTION (test n6fmuBYaAKOowCXQXDRcLD code = [id number]) PcQS6vsBmksCc3mExcKVTt tfY2rLWvEHpkv0lxTGB8h6 dwghROUctoLZElKW8zAGmk LWMvQA3lHcPaDMWiRpSjGR BhcGVydzEyMjQwXHBhcGVy mGL6YAIqXG1hzfedIVboWR jzWBSnscI6CGSyzLXhS1Dm IWByJE7seifaRFE7MDOYKp jzHp8zrURnfQybJlIuQlJn YXJzZXQwXGZuaWwgQXJpYW i8pS9QFjqhYWA3XRZJPwzf HtcuwMgru3CkoBPmDZBaOB xcaWQgNTEwMDAgXFxkYiBP NhSkImX5XfLcFpczDnM7NY b6NKLQCBRyPFS7WXOmGhF0 MLp4OOGuTE9aRLxqkQAjKV bjBossPNneL751XYmeHYAn Y4QbD8MiROtaIvFhKBxrEX CqSQNrPAuxBBOqK6FMDCFd HJDjShY7HoDwSPe4OMnaY0 PSFAYbQGB0FUU9IRa5BrK6 PNy1LWGAYu1bXcD7NcE9UG OjEXS6JOQ9NNwbwAOsTFxj g6XzSoGbSFOeKAvqnxB2CG LwqsCyDZghqQyttK6sWiVv FuBAIvFRCECibF2uFAHfRR ZsdWlkXHBhciANClxwYXJk JY2CXRElWWijMRJpMdTgzI UhA3mjKWCgW02gf4KWu9Zc ZZ8WYYw2dpMjxoroxU4dZU KevdQor9HfGLjpoPdaZYBz MzAgDQpcZnMyMCBSZWNlaX QnYAV8AZXemRlrh4Xojagq JXQhJtViAWejbSK8hR5wtM RlHwt0uSP6HWOzUMBmmnSy FDCdB1v4a7TatB8iZYQwKO AwSTqhNUGoo3NuYYLeXL0k dOhsQYRxpTibHvjhN7avu6 JzZVFywXHxVUumYERzjk0q gJrcWI4oQFFaKc7xQDEvKL avWINxV96tp6EGp1Ely4uo vSycn1TkkQNyGT96PFQvcJ RrPBV1FZ1suQmuBBLqDJpj hGGwSNHAQrywqzRvCS3BhL == MICROSCOPIC DESCRIPTION r3hguCOkTUVpqGXbJCSvNT (test code = 3371) lxquLzUSIitYOjP6Zuxbij KCvzQF4rDS9vdTwimTFwaJ GwLOWeMxPhu5rwl013fRXc n5qcCLRXjidvuAt5pNpcW6 5yc8M4MwayY07qpJDhQZP0 HYKlIIGlwGZwWVXjCRM4ED XliCOyR6mfXRTlMD8lmpyn MXinVYjpDEQocXE4YCHwiQ KlF3VyJBIjAGtjRAPrcbv4 UsUxRn5smFBcyIcgRBxhND JkXHBsYWluXGZzMjAgUGVy Ev1zgYVkQaSkuIFvtJ== STATEMENT OF ADEQUACY Satisfactory (test code = 2757) Gross assessment was [facility] performed at ([facility], = 2777) Department of Pathology, [address] [place] [address], Technical component was [facility] performed at ([facility], = 2778) Department of Pathology, [address] [place] [address], Professional component [facility] was performed at ([facility], code = 2779) Department of Pathology, [address] [place] [address], [facility]2023[facility] 12:46:42Medical Cytology Report Case: [id number] Authorizing Provider: Carlos Estrada MD Collected: 0 01/25/2023 03:39 PM Ordering Location: [address] Received: 01/26/2023 08:50 AM Service Pathologist: Daija Lennon MD Specimen: Peritoneal Fluid NEGATIVE FOR MALIGNANCY PERITONEAL FLUID (CYTOSPINS AND CELL BLOCK):-Negative for malignancy-Abundant neutrophils in a background of mesothelial cells Signing Pathologist Direct Phone Line: [phone] signed by Daija Lennon MD on 01/27/2023 at 12:46 [id number], [id number] y.o. 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 CT acquired for worsening of her chronic/persistent abdominal pain and distension demonstrated pneumoperitoneum.PERITONEAL FLUIDA. Peritoneal FluidReceived 400 ml orange marta gelatinous fluid; prepared 4 cytospins and ce ll block(A2)- the cell block was fixed in formalin on 3Performed. [facility], Department of Pathology, [address] [place] [address], [facility], Department of Pathology, [address] [place] [address], [facility], Department of [facility], [address] [place] [address], TADJ-GLUCOSE [id number] 12:13:30 Test Item Value Reference Range Interpretation Comments POC-GLUCOSE METER 94 mg/dL 70-110 : TESTED A T [facility] ([facility] (PRN)) (test code = [facility], 1538) 75481: Security Patrol Officer/Techni waylon ID = [id number] for DIONNE ERNST POCT-GLUCOSE [id number] 09:41:43 Test Item Value Reference Range Interpretation Comments POC-GLUCOSE METER 86 mg/dL 70-110 : TESTED A T [facility] (Upside) (test code = [facility], 1538) 48527: Security Patrol Officer/Techni waylon ID = [id number] for DIONNE ERNST Protein, body [id number] 08:17:26Protein, Fluid01/27/2023 8:17 AM [facility] LABORATORYAbsence of reference range indicates that normals have not been defined.Assay performance has not been validated for this type of specimen.[facility] HospitalLactate dehydrogenase (LDH), body [id number] 08:17:25LDH, Fluid01/27/2023 8:17 AM [facility] LABORATORYAbsence of reference range indicates that normals have not been defined.Assay performance has not been validated for this type of specimen.[facility] Glucose Peritoneal [id number] 08:17:24Glucose, Peritoneal Fluid01/27/2023 8:17 AM [employer] [facility] [id number] 07:52:31 Test Item Value Reference Range Interpretation Comments POC-GLUCOSE METER 66 mg/dL 70-110 L : TESTED A T [facility] 6720 (BEAKER) (test code = [facility] [place], 1538) 69229: Security Patrol Officer/Techni waylon ID = [id number] for DIONNE ERNST (CELLAVISION MANUAL DIFF)2023-01-27 07:15:38 Test Item Value Reference Range Interpretation Comments NEUTROPHILS - REL 88 % (CELLAVISION)(BEAKER) (test code = 2816) LYMPHOCYTES - REL 6 % (CELLAVISION)(BEAKER) (test code = 2817) MONOCYTES - REL 4 % (CELLAVISION)(BEAKER) (test code = 2818) METAMYELOCYTES - REL 1 % 0-0 H (CELLAVISION)(BEAKER) (test code = 2821) BANDS - REL (CELLAVISION)(BEAKER) 1 % 0-10 (test code = 2826) NEUTROPHILS - ABS 9.50 K/ul 1.56-6.13 H (CELLAVISION)(BEAKER) (test code = 2830) LYMPHOCYTES - ABS 0.65 K/ul 1.18-3.74 L (CELLAVISION)(BEAKER) (test code = 2831) MONOCYTES - ABS 0.43 K/uL 0.24-0.36 H (CELLAVISION)(BEAKER) (test code = 2832) METAMYELOCYTES - ABS 0.11 K/uL 0.00-0.00 H (CELLAVISION)(BEAKER) (test code = 2836) BANDS - ABS (CELLAVISION)(BEAKER) 0.11 K/uL 0.00-0.80 (test code = 2840) TOTAL COUNTED (BEAKER) (test code = 100 1351) WBC MORPHOLOGY (BEAKER) (test code Normal = 487) GIANT PLATELETS (BEAKER) (test code Present = 313) POLYCHROMATOPHILLIC RBCS(BEAKER) 3+ many (test code = 478) HYPOCHROMIA (BEAKER) (test code = 1+ few 963) ANISOCYTOSIS (BEAKER) (test code = 1+ few 961) MICROCYTES (BEAKER) (test code = 1+ few 965) POIKILOCYTES (BEAKER) (test code = 1+ few 966) ELLIPTOCYTES (BEAKER) (test code = 1+ few 962) ARTIFACT (CELLAVISION)(BEAKER) Present (test code = 3432) PLATELET CONCENTRATION Adequate (CELLAVISION)(BEAKER) (test code = 3438) Security Patrol Officer ID - saray Gustavo comments: Slide comments:CBC W/PLT COUNT & AUTO [id number] 07:15:35 Test Item Value Reference Range Interpretation Comments WHITE BLOOD CELL COUNT (BEAKER) 10.8 K/ L 3.5-10.5 H (test code = 775) RED BLOOD CELL COUNT (BEAKER) 2.25 M/ L 3.93-5.22 L (test code = 761) HEMOGLOBIN (BEAKER) (test code = 6.1 GM/DL 11.2-15.7 L 410) HEMATOCRIT (BEAKER) (test code = 20.2 % 34.1-44.9 L 411) MEAN CORPUSCULAR VOLUME (BEAKER) 90 fL 79-95 (test code = 753) MEAN CORPUSCULAR HEMOGLOBIN 27.1 pg 25.6-32.2 (BEAKER) (test code = 751) MEAN CORPUSCULAR HEMOGLOBIN CONC 30.2 GM/DL 32.2-35.5 L (BEAKER) (test code = 752) RED CELL DISTRIBUTION WIDTH 17.2 % 11.7-14.4 H (BEAKER) (test code = 412) PLATELET COUNT (BEAKER) (test 337 K/CU MM 150-450 code = 756) MEAN PLATELET VOLUME (BEAKER) 10.2 fL 9.4-12.3 (test code = 754) NUCLEATED RED BLOOD CELLS 0 /100 WBC 0-0 (BEAKER) (test code = 413) LACTATE DEHYDROGENASE (LDH)2023-01-27 07:09:10 Test Item Value Reference Range Interpretation Comments LACTATE DEHYDROGENASE (BEAKER) (test 332 U/L 125-220 H code = 635) Security Patrol Officer ID - [id number] 07:09:09 Test Item Value Reference Range Interpretation Comments PHOSPHORUS (BEAKER) (test code = 2.6 mg/dL 2.3-4.7 604) Security Patrol Officer ID - [id number] 07:09:08 Test Item Value Reference Range Interpretation Comments MAGNESIUM (BEAKER) (test code = 1.5 mg/dL 1.6-2.6 L 627) Security Patrol Officer ID - MMCOMPREHENSIVE METABOLIC [id number] 07:09:07 Test Item Value Reference Range Interpretation Comments TOTAL PROTEIN 4.9 gm/dL 6.0-8.3 L (BEAKER) (test code = 770) ALBUMIN (BEAKER) 2.8 g/dL 3.5-5.0 L (test code = 1145) ALKALINE 190 U/L 40-150 H PHOSPHATASE (BEAKER) (test code = 346) BILIRUBIN TOTAL 0.6 mg/dL 0.2-1.2 (BEAKER) (test code = 377) SODIUM (BEAKER) 133 meq/L 136-145 L (test code = 381) POTASSIUM (BEAKER) 4.5 meq/L 3.5-5.1 (test code = 379) CHLORIDE (BEAKER) 95 meq/L 98-107 L (test code = 382) CO2 (BEAKER) (test 30 meq/L 22-29 H code = 355) BLOOD UREA 29 mg/dL 7-21 H NITROGEN (BEAKER) (test code = 354) CREATININE 1.84 mg/dL 0.57-1.25 H (BEAKER) (test code = 358) GLUCOSE RANDOM 71 mg/dL 70-105 (BEAKER) (test code = 652) CALCIUM (BEAKER) 8.6 mg/dL 8.4-10.2 (test code = 697) AST (SGOT) 13 U/L 5-34 (BEAKER) (test code = 353) ALT (SGPT) 18 U/L 6-55 (BEAKER) (test code = 347) EGFR (BEAKER) 33 Interpretatio n of eGFR (test code = [...] not appl icable for dialysis patien ts Security Patrol Officer ID - [id number] 06:39:05 Test Item Value Reference Range Interpretation Comments PROTIME (BEAKER) (test code = 14.9 seconds 11.9-14.2 H 759) INR (BEAKER) (test code = 370) 1.19 <=5.90 PARTIAL THROMBOPLASTIN TIME 41.4 seconds 22.5-36.0 H (BEAKER) (test code = 760) RECOMMENDED COUMADIN/WARFARIN INR THERAPY RANGESSTANDARD DOSE: 2.0 - 3.0 Includes: PROPHYLAXIS for venous thrombosis, systemic embolization; TREATMENT for venous thrombosis and/or pulmonary embolus.HIGH RISK: Target INR is 2.5-3.5 for patients with mechanical heart valves.[id number] 06:22:21 Test Item Value Reference Range Interpretation Comments HAPTOGLOBIN (BEAKER) (test code = 232 mg/dL 14-258 366) Security Patrol Officer ID - ADMINCALCIUM, [id number] 05:34:53 Test Item Value Reference Range Interpretation Comments CALCIUM IONIZED (BEAKER) (test 1.16 mmol/L 1.12-1.27 code = 698) PH, BLOOD (BEAKER) (test code = 7.42 1810) POCT-GLUCOSE [id number] 22:32:51 Test Item Value Reference Range Interpretation Comments POC-GLUCOSE METER 78 mg/dL 70-110 : TESTED A T [facility] 6720 (BEAKER) (test code = [facility], 1538) [id number]: Security Patrol Officer/Techni waylon ID = [id number] for STAS ALONZO POCT-GLUCOSE [id number] 16:06:32 Test Item Value Reference Range Interpretation Comments POC-GLUCOSE METER 135 mg/dL 70-110 H : TESTED A T [facility] 6720 (BEAKER) (test code = [facility], 1538) 84024: Security Patrol Officer/Techni waylon ID = [id number] for Yovanny Cox POCT-GLUCOSE [id number] 11:43:11 Test Item Value Reference Range Interpretation Comments POC-GLUCOSE METER 89 mg/dL 70-110 : TESTED A T [facility] 6720 (BEAKER) (test code = ROZ Gutiérrez [facility], 1538) 694[address]: Security Patrol Officer/Techni waylon ID = [id number] for Yovanny Keating INCUBATED 1:1 MIXING [id number] 11:21:11 Test Item Value Reference Range Interpretation Comments IMMEDIATE PT (BEAKER) 15.0 seconds 11.7-14.7 H (test code = 1487) IMMEDIATE PTT (BEAKER) 41.5 seconds 22.5-36.0 H (test code = 1488) IMMEDIATE 1:1 MIX PT 13.6 seconds 11.7-14.7 (BEAKER) (test code = 2091369207) IMMEDIATE 1:1 MIX PTT 36.4 seconds 22.5-36.0 H (BEAKER) (test code = 4837382290) 1:1 MIX, 1 HOUR INC PT 13.9 seconds (BEAKER) (test code = 1501) 1:1 MIX, 1 HOUR INC PTT 37.3 seconds (BEAKER) (test code = 1502) MIXING STUDY PATHOLOGIST Prolonged PT and PTT INTERPRETATION (BEAKER) with correction (test code = 0107175333) suggestive of factor deficiency; cannot completely exclude a factor inhibitor. [id number] Lynette Ryder, (BEAKER) (test code = M.DGabe 2608) [id number] 08:56:25 Test Item Value Reference Range Interpretation Comments HAPTOGLOBIN (BEAKER) (test code = 250 mg/dL 14-258 366) Security Patrol Officer ID - ADMINCOMPREHENSIVE METABOLIC [id number] 08:55:20 Test Item Value Reference Range Interpretation Comments TOTAL PROTEIN 5.2 gm/dL 6.0-8.3 L Specimen sligh tly (BEAKER) (test hemolyzed code = 770) ALBUMIN (BEAKER) 3.2 g/dL 3.5-5.0 L Specimen sl ightly (test code = 1145) hemolyzed ALKALINE 203 U/L 40-150 H PHOSPHATASE (BEAKER) (test code = 346) BILIRUBIN TOTAL 0.5 mg/dL 0.2-1.2 Specimen sli ghtly (BEAKER) (test hemolyzed code = 377) SODIUM (BEAKER) 132 meq/L 136-145 L (test code = 381) POTASSIUM (BEAKER) 4.1 meq/L 3.5-5.1 Specimen slightly (test code = 379) hemolyzed CHLORIDE (BEAKER) 95 meq/L 98-107 L (test code = 382) CO2 (BEAKER) (test 34 meq/L 22-29 H code = 355) BLOOD UREA 24 mg/dL 7-21 H NITROGEN (BEAKER) (test code = 354) CREATININE 1.72 mg/dL 0.57-1.25 H Specimen slight ly (BEAKER) (test hemolyzed code = 358) GLUCOSE RANDOM 70 mg/dL 70-105 (BEAKER) (test code = 652) CALCIUM (BEAKER) 8.5 mg/dL 8.4-10.2 (test code = 697) AST (SGOT) 16 U/L 5-34 Specimen slight ly (BEAKER) (test hemolyzed code = 353) ALT (SGPT) 21 U/L 6-55 Specimen slight ly (BEAKER) (test hemolyzed code = 347) EGFR (BEAKER) 36 Interpretatio n of eGFR (test code = [...] not appl icable for dialysis patien ts [id number] 08:55:06 Test Item Value Reference Range Interpretation Comments MAGNESIUM (BEAKER) 1.7 mg/dL 1.6-2.6 Specimen slightly (test code = 627) hemolyzed [id number] 08:55:00 Test Item Value Reference Range Interpretation Comments PHOSPHORUS (BEAKER) 2.6 mg/dL 2.3-4.7 Specimen slightly (test code = 604) hemolyzed BILIRUBIN, [id number] 08:54:16 Test Item Value Reference Range Interpretation Comments BILIRUBIN DIRECT 0.4 mg/dL 0.1-0.5 Specimen sl ightly (BEAKER) (test code = hemoly zed 706) LACTATE DEHYDROGENASE (LDH)2023-01-26 08:54:09 Test Item Value Reference Range Interpretation Comments LACTATE DEHYDROGENASE 375 U/L 125-220 H Specim en slightly (BEAKER) (test code = hemoly zed 635) POCT-GLUCOSE [id number] 08:08:26 Test Item Value Reference Range Interpretation Comments POC-GLUCOSE METER 72 mg/dL 70-110 : TESTED A T [facility] 6720 (BEAKER) (test code = [facility], 1538) 99466: Security Patrol Officer/Techni waylon ID = [id number] for Yovanny Keating POCT-GLUCOSE [id number] 07:44:34 Test Item Value Reference Range Interpretation Comments POC-GLUCOSE METER 66 mg/dL 70-110 L : TESTED A T [facility] 6720 (BEAKER) (test code = [facility], 1538) 83368: Security Patrol Officer/Techni waylon ID = [id number] for Yovanny Keating (CELLAVISION MANUAL DIFF)2023-01-26 06:53:44 Test Item Value Reference Range Interpretation Comments NEUTROPHILS - REL 92 % (CELLAVISION)(BEAKER) (test code = 2816) LYMPHOCYTES - REL 6 % (CELLAVISION)(BEAKER) (test code = 2817) MONOCYTES - REL 2 % (CELLAVISION)(BEAKER) (test code = 2818) NEUTROPHILS - ABS 10.67 K/ul 1.56-6.13 H (CELLAVISION)(BEAKER) (test code = 2830) LYMPHOCYTES - ABS 0.70 K/ul 1.18-3.74 L (CELLAVISION)(BEAKER) (test code = 2831) MONOCYTES - ABS 0.23 K/uL 0.24-0.36 L (CELLAVISION)(BEAKER) (test code = 2832) TOTAL COUNTED (BEAKER) (test code 100 = 1351) WBC MORPHOLOGY (BEAKER) (test Normal code = 487) PLT MORPHOLOGY (BEAKER) (test Normal code = 486) POLYCHROMATOPHILLIC RBCS(BEAKER) 2+ moderate (test code = 478) HYPOCHROMIA (BEAKER) (test code = 1+ few 963) ANISOCYTOSIS (BEAKER) (test code 1+ few = 961) MACROCYTES (BEAKER) (test code = 1+ few 964) POIKILOCYTES (BEAKER) (test code 1+ few = 966) ELLIPTOCYTES (BEAKER) (test code 1+ few = 962) OVALOCYTES (BEAKER) (test code = 1+ few 477) ARTIFACT (CELLAVISION)(BEAKER) Present (test code = 3432) HELMET CELLS 1+ few (CELLAVISION)(BEAKER) (test code = 3434) PLATELET CONCENTRATION Adequate (CELLAVISION)(BEAKER) (test code = 3438) Security Patrol Officer ID - Carisa Nikki comments: Slide comments:CBC W/PLT COUNT & AUTO [id number] 06:53:41 Test Item Value Reference Range Interpretation Comments WHITE BLOOD CELL COUNT (BEAKER) 11.6 K/ L 3.5-10.5 H (test code = 775) RED BLOOD CELL COUNT (BEAKER) 2.33 M/ L 3.93-5.22 L (test code = 761) HEMOGLOBIN (BEAKER) (test code = 6.4 GM/DL 11.2-15.7 L 410) HEMATOCRIT (BEAKER) (test code = 21.3 % 34.1-44.9 L 411) MEAN CORPUSCULAR VOLUME (BEAKER) 91 fL 79-95 (test code = 753) MEAN CORPUSCULAR HEMOGLOBIN 27.5 pg 25.6-32.2 (BEAKER) (test code = 751) MEAN CORPUSCULAR HEMOGLOBIN CONC 30.0 GM/DL 32.2-35.5 L (BEAKER) (test code = 752) RED CELL DISTRIBUTION WIDTH 17.2 % 11.7-14.4 H (BEAKER) (test code = 412) PLATELET COUNT (BEAKER) (test 322 K/CU MM 150-450 code = 756) MEAN PLATELET VOLUME (BEAKER) 10.4 fL 9.4-12.3 (test code = 754) NUCLEATED RED BLOOD CELLS 0 /100 WBC 0-0 (BEAKER) (test code = 413) B-TYPE NATRIURETIC FACTOR (BNP)2023-01-26 06:01:09 Test Item Value Reference Range Interpretation Comments B-TYPE NATRIURETIC PEPTIDE (BEAKER) 203 pg/mL 0-100 H (test code = 700) Security Patrol Officer ID - ADMINPT/[id number] 05:50:43 Test Item Value Reference Range Interpretation Comments PROTIME (BEAKER) (test code = 15.1 seconds 11.9-14.2 H 759) INR (BEAKER) (test code = 370) 1.22 <=5.90 PARTIAL THROMBOPLASTIN TIME 40.5 seconds 22.5-36.0 H (BEAKER) (test code = 760) RECOMMENDED COUMADIN/WARFARIN INR THERAPY RANGESSTANDARD DOSE: 2.0 - 3.0 Includes: PROPHYLAXIS for venous thrombosis, systemic embolization; TREATMENT for venous thrombosis and/or pulmonary embolus.HIGH RISK: Target INR is 2.5-3.5 for patients with mechanical heart valves.RETICULOCYTE [id number] 05:37:26 Test Item Value Reference Range Interpretation Comments RETICULOCYTE COUNT PCT (BEAKER) (test 3.5 % 0.5-1.7 H code = 575) Security Patrol Officer ID - [id number], [id number] 05:29:50 Test Item Value Reference Range Interpretation Comments CALCIUM IONIZED (BEAKER) (test 1.13 mmol/L 1.12-1.27 code = 698) PH, BLOOD (BEAKER) (test code = 7.41 1810) POCT-GLUCOSE [id number] 23:08:41 Test Item Value Reference Range Interpretation Comments POC-GLUCOSE METER 91 mg/dL 70-110 : TESTED A T [facility] 6720 (BEAKER) (test code = [place], 1538) [id number]: Security Patrol Officer/Techni waylon ID = [id number] for LILIANA RUSSELL PROTHROMBIN TIME/[id number] 22:56:12 Test Item Value Reference Range Interpretation Comments PROTIME (BEAKER) (test code = 16.0 seconds 11.9-14.2 H 759) INR (BEAKER) (test code = 370) 1.31 <=5.90 RECOMMENDED COUMADIN/WARFARIN INR THERAPY RANGESSTANDARD DOSE: 2.0 - 3.0 Includes: PROPHYLAXIS for venous thrombosis, systemic embolization; TREATMENT for venous thrombosis and/or pulmonary embolus.HIGH RISK: Target INR is 2.5-3.5 for patients with mechanical heart valves.[id number] 22:56:00 Test Item Value Reference Range Interpretation Comments PARTIAL THROMBOPLASTIN TIME 36.9 seconds 22.5-36.0 H (BEAKER) (test code = 760) POCT-GLUCOSE [id number] 22:52:04 Test Item Value Reference Range Interpretation Comments POC-GLUCOSE METER 127 mg/dL 70-110 H : TESTED A T [facility] [address] (BEAKER) (test code [facility], = 1538) [id number]: Security Patrol Officer/Techni waylon ID = [id number] for Alex Rodriguez Body fluid cell count with [id number] 19:59:19 Test Item Value Reference Range Interpretation Comments Appearance (test code Slightly Hazy Clear A = 9335-1) Color (test code = Yellow Colorless, Straw A 6824-7) RBCs (test code = 4000 See_Comment H [Automate d 03514-0) message] The system which generated this result transmit tomy reference range : <=1 /cu mm. The reference range was not used to interpret this result as normal/abnormal . TNC Count (test code = 881 See_Comment H [Aut omated 1442) message] The system which generated this result transmit tomy reference range : <=5 /cu mm. The reference range was not used to interpret this result as normal/abnormal . Lining Cells/Other 0 Diff'd (test code = 1589) Adjusted WBC Count 881 See_Comment H [Automat ed (test code = 78196-5) messag e] The system which generated this result transmit tomy reference range : <=5 /cu mm. The reference range was not used to interpret this result as normal/abnormal . Adjusted lining 0 See_Comment [Automated cells/Others (test message] The code = 05434-8) system which generated this result transmit tomy reference range : <=1 /cu mm. The reference range was not used to interpret this result as normal/abnormal . % Segs (test code = 27 % 75574-3) % Lymphs (test code = 37 % 34838-7) % Monos (test code = 36 % 78705-4) % Eos (test code = 0 % 83158-9) % Baso (test code = 0 % 50978-3) Container Body Fluid EDTA Tube (test code = 2873) Lab Interpretation Abnormal (test code = 78914-1) [facility] WITH [id number] 19:59:19 Test Item Value Reference Range Interpretation Comments APPEARANCE FLUID (BEAKER) Slightly Hazy Clear A (test code = 510) COLOR FLUID (BEAKER) (test Yellow Colorless, Straw A code = 511) RBC FLUID (BEAKER) (test code 4000 /cu mm <=1 H = 513) TOTAL NUCLEATED CELL COUNT 881 /cu mm <=5 H (BEAKER) (test code = 1442) LINING CELLS/OTHERS DIFF'D 0 (BEAKER) (test code = 1589) ADJUSTED WBC FLUID (BEAKER) 881 /cu mm <=5 H (test code = 1691) LINING CELLS/OTHERS, 0 /cu mm <=1 CALCULATED (BEAKER) (test code = 1590) NEUTROPHILS FLUID (BEAKER) 27 % (test code = 1656) LYMPHS FLUID (BEAKER) (test 37 % code = 488) MONO/MACROPHAGE FLUID (BEAKER) 36 % (test code = 489) EOSINOPHILS FLUID (BEAKER) 0 % (test code = 491) BASO FLUID (BEAKER) (test code 0 % = 492) CONTAINER BODY FLUID (BEAKER) EDTA Tube (test code = 2873) U/S, [id number] 16:58:00Labs to be ordered:->Body Fluid Culture (w/Gram Stain, C\\T\\S)Labs to be ordered:->Anaerobic Culture (w/Gram Stain)Labs to be ordered:->AFB Culture with StainLabs to be ordered:->CytologyLabs to be ordered:->Fungal Culture with StainLabs to be ordered:->Glucose+LDH+ProteinLabs to be ordered:->Cell CountReason for exam:->Diagnostic, prior abdominal surgery, also has hemolytic anemia on [facility] : 1975 Sex: FFINAL REPORT Ultrasound guided paracentesis. Clinical History: Ascites. Sedation: None. School Bus Aide: Sancho Cronin PA-C Terminal System Operator: None. Estimated Blood Loss: < 1 cc. Specimen: 450 cc of clear yellow fluid, samples sent to laboratory. Technique: Informed consent was obtained. The risks of pain, bleeding, infection, bowel perforation, injury to adjacent structures, and adverse medication reactions were discussed with the patient. After informed consent was obtained, the patient's abdomen was scanned. The right upper quadrant of the abdomen was selected for paracentesis. After the largest fluid pocket area was marked, and the anterior abdominal wall was evaluated with color Doppler to exclude presence of blood vessels traversing the area, the skin was prepped and draped in the usual sterile manner. After local anesthesia was achieved with 2% lidocaine, a 5 Congolese one-step catheter was advanced into the peritoneal cavity under ultrasound guidance. After completion of drainage, the catheter was removed. There was no evidence of complication. Impression:Successful ultrasound guided paracentesis. Signed: Dav Domínguez Verified Date/Time: 01/25/2023 16:58:25 Reading Location: [address] Ultrasound Reading Room Electronically signed by: DAV DOMÍNGUEZ MD on 10/2022 04:58 PMPOCT-GLUCOSE [id number] 12:12:04 Test Item Value Reference Range Interpretation Comments POC-GLUCOSE METER 129 mg/dL 70-110 H : TESTED A T [facility] 6720 (RHEA) (test code [facility], = 1538) [id number]: Security Patrol Officer/Techni waylon ID = [id number] for Alex Rodriguez CT, [id number] 10:58:00Unlisted Reason for Exam - Click Yes and Enter Reason Below->NoProtocol Please Specify:->Standard ProtocolWill this procedure require oral contrast?->Yes [facility] : 1975 Sex: FFINAL REPORT TECHNIQUE: CT of the abdomen and pelvis WITHOUT intravenous contrast and WITHOUT oral contrast. Dose modulation, iterative reconstruction, and/or weight-based adjustment of the mA/kV was utilized to reduce the radiation dose to as low as reasonably achievable. INDICATION: Abdominal pain, acute, nonlocalized. COMPARISON: CT from 12/31/2022. FINDINGS: ABSENCE OF INTRAVENOUS CONTRAST DECREASES SENSITIVITY FOR DETECTION OF FOCAL LESIONS AND VASCULAR PATHOLOGY. LOWER THORAX: A central venous catheter has its tip in the lower SVC. Small left pleural effusion with mild bibasilar atelectasis. The fluid in the heart is lower density than the myocardium. HEPATOBILIARY: No focal hepatic lesions. Prior cholecystectomy. No biliary ductal dilatation. SPLEEN: 17.4 cm splenomegaly.PANCREAS: No focal masses or ductal dilatation. ADRENALS: No adrenal nodules.KIDNEYS/URETERS: No hydronephrosis, stones, or exophytic masses.PELVIC ORGANS/BLADDER: A mass posterior uterus measures 3.9cm and is most likely an exophytic leiomyoma. The urinary bladder is distended. PERITONEUM/RETROPERITONEUM: Moderate volume ascites. No free air.LYMPH NODES: No lymphadenopathy.VESSELS: Unremarkable. 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 In addition, there is a right lower quadrant end ileostomy. BONES AND SOFT TISSUES: The midline abdominal wound is partially open and packed. Subacute, healing left anterior rib fractures. The bones are diffusely demineralized. IMPRESSION:1.Moderate volume ascites and moderate splenomegaly. The CT appearance of the liver is normal. 2.There is a right lower quadrant end ileostomy with contrast extending all the way to the ostomy. No bowel obstruction or extravasation of oral contrast. A right end colostomy is also in place. 3.The urinary bladder is distended. Consider evaluation of the postvoid residual volume. Signed: Colt Thomas MDReport Verified Date/Time: 01/25/2023 10:58:05 POCT-GLUCOSE [id number] 08:55:18 Test Item Value Reference Range Interpretation Comments POC-GLUCOSE METER 92 mg/dL 70-110 : TESTED A T [facility] 6720 (BEAKER) (test code [facility], [address]: = 1538) Security Patrol Officer/Techni waylon ID = [id number] for Alex Rodriguez [id number] 08:05:09 Test Item Value Reference Range Interpretation Comments PARTIAL THROMBOPLASTIN TIME 159.0 seconds 22.5-36.0 HH (BEAKER) (test code = 760) RETICULOCYTE [id number] 07:51:14 Test Item Value Reference Range Interpretation Comments RETICULOCYTE COUNT PCT (BEAKER) (test 3.9 % 0.5-1.7 H code = 575) Security Patrol Officer ID - [id number] DEHYDROGENASE (LDH)2023-01-25 07:06:56 Test Item Value Reference Range Interpretation Comments LACTATE DEHYDROGENASE (BEAKER) (test 332 U/L 125-220 H code = 635) Security Patrol Officer ID - NEELAM [id number] 07:06:55 Test Item Value Reference Range Interpretation Comments PHOSPHORUS (BEAKER) (test code = 2.6 mg/dL 2.3-4.7 604) Security Patrol Officer ID - NEELAM [id number] 07:06:54 Test Item Value Reference Range Interpretation Comments MAGNESIUM (BEAKER) (test code = 1.4 mg/dL 1.6-2.6 L 627) Security Patrol Officer ID - NEELAM WCOMPREHENSIVE METABOLIC [id number] 07:06:53 Test Item Value Reference Range Interpretation Comments TOTAL PROTEIN 5.0 gm/dL 6.0-8.3 L (BEAKER) (test code = 770) ALBUMIN (BEAKER) 2.9 g/dL 3.5-5.0 L (test code = 1145) ALKALINE 200 U/L 40-150 H PHOSPHATASE (BEAKER) (test code = 346) BILIRUBIN TOTAL 0.8 mg/dL 0.2-1.2 (BEAKER) (test code = 377) SODIUM (BEAKER) 135 meq/L 136-145 L (test code = 381) POTASSIUM (BEAKER) 4.3 meq/L 3.5-5.1 (test code = 379) CHLORIDE (BEAKER) 95 meq/L 98-107 L (test code = 382) CO2 (BEAKER) (test 32 meq/L 22-29 H code = 355) BLOOD UREA 21 mg/dL 7-21 NITROGEN (BEAKER) (test code = 354) CREATININE 1.72 mg/dL 0.57-1.25 H (BEAKER) (test code = 358) GLUCOSE RANDOM 80 mg/dL 70-105 (BEAKER) (test code = 652) CALCIUM (BEAKER) 8.6 mg/dL 8.4-10.2 (test code = 697) AST (SGOT) 14 U/L 5-34 (BEAKER) (test code = 353) ALT (SGPT) 21 U/L 6-55 (BEAKER) (test code = 347) EGFR (BEAKER) 36 Interpretatio n of eGFR (test code = [...] not appl icable for dialysis patien ts Security Patrol Officer ID - NEELAM WCBC W/PLT COUNT & AUTO [id number] 06:43:56 Test Item Value Reference Range Interpretation Comments WHITE BLOOD CELL COUNT (BEAKER) 14.7 K/ L 3.5-10.5 H (test code = 775) RED BLOOD CELL COUNT (BEAKER) 2.37 M/ L 3.93-5.22 L (test code = 761) HEMOGLOBIN (BEAKER) (test code = 6.5 GM/DL 11.2-15.7 L 410) HEMATOCRIT (BEAKER) (test code = 21.4 % 34.1-44.9 L 411) MEAN CORPUSCULAR VOLUME (BEAKER) 90 fL 79-95 (test code = 753) MEAN CORPUSCULAR HEMOGLOBIN 27.4 pg 25.6-32.2 (BEAKER) (test code = 751) MEAN CORPUSCULAR HEMOGLOBIN CONC 30.4 GM/DL 32.2-35.5 L (BEAKER) (test code = 752) RED CELL DISTRIBUTION WIDTH 17.5 % 11.7-14.4 H (BEAKER) (test code = 412) PLATELET COUNT (BEAKER) (test 309 K/CU MM 150-450 code = 756) MEAN PLATELET VOLUME (BEAKER) 10.2 fL 9.4-12.3 (test code = 754) NUCLEATED RED BLOOD CELLS 0 /100 WBC 0-0 (BEAKER) (test code = 413) NEUTROPHILS RELATIVE PERCENT 82 % (BEAKER) (test code = 429) LYMPHOCYTES RELATIVE PERCENT 6 % (BEAKER) (test code = 430) MONOCYTES RELATIVE PERCENT 7 % (BEAKER) (test code = 431) EOSINOPHILS RELATIVE PERCENT 0 % (BEAKER) (test code = 432) BASOPHILS RELATIVE PERCENT 0 % (BEAKER) (test code = 437) NEUTROPHILS ABSOLUTE COUNT 12.03 K/ L 1.56-6.13 H (BEAKER) (test code = 670) LYMPHOCYTES ABSOLUTE COUNT 0.84 K/ L 1.18-3.74 L (BEAKER) (test code = 414) MONOCYTES ABSOLUTE COUNT (BEAKER) 1.03 K/ L 0.24-0.36 H (test code = 415) EOSINOPHILS ABSOLUTE COUNT 0.04 K/ L 0.04-0.36 (BEAKER) (test code = 416) BASOPHILS ABSOLUTE COUNT (BEAKER) 0.03 K/ L 0.01-0.08 (test code = 417) IMMATURE GRANULOCYTES-RELATIVE 4.90 % 0.00-1.00 H PERCENT (BEAKER) (test code = 2801) [id number] 06:19:38 Test Item Value Reference Range Interpretation Comments PROTIME (BEAKER) (test code = 17.6 seconds 11.9-14.2 H 759) INR (BEAKER) (test code = 370) 1.54 <=5.90 PARTIAL THROMBOPLASTIN TIME > seconds 22.5-36.0 HH (BEAKER) (test code = 760) RECOMMENDED COUMADIN/WARFARIN INR THERAPY RANGESSTANDARD DOSE: 2.0 - 3.0 Includes: PROPHYLAXIS for venous thrombosis, systemic embolization; TREATMENT for venous thrombosis and/or pulmonary embolus.HIGH RISK: Target INR is 2.5-3.5 for patients with mechanical heart valves.CALCIUM, [id number] 06:12:51 Test Item Value Reference Range Interpretation Comments CALCIUM IONIZED (AKER) (test 1.15 mmol/L 1.12-1.27 code = 698) PH, BLOOD ([facility] (test code = 7.38 4140) POCT-GLUCOSE [id number] 21:07:25 Test Item Value Reference Range Interpretation Comments POC-GLUCOSE METER 134 mg/dL 70-110 H : TESTED A T [facility] 6720 (BEAKER) (test code = [facility], 1538) [address]: Security Patrol Officer/Techni waylon ID = [id number] for Cash Morales POCT-GLUCOSE [id number] 16:04:28 Test Item Value Reference Range Interpretation Comments POC-GLUCOSE METER 160 mg/dL 70-110 H : TESTED A T [facility] 6720 (BEAKER) (test code = [facility], 1538) 016[address]: Security Patrol Officer/Techni waylon ID = [id number] for Yovanny Cox POCT-GLUCOSE [id number] 11:52:59 Test Item Value Reference Range Interpretation Comments POC-GLUCOSE METER 112 mg/dL 70-110 H : TESTED A T [facility] 6720 (BEAKER) (test code = [facility], 1538) [address]24[address]: Security Patrol Officer/Techni waylon ID = [id number] for Yovanny Cox [id number] 10:53:14 Test Item Value Reference Range Interpretation Comments PHOSPHORUS (BEAKER) 2.5 mg/dL 2.3-4.7 Specimen slightly (test code = 604) hemolyzed COMPREHENSIVE METABOLIC [id number] 10:53:02 Test Item Value Reference Range Interpretation Comments TOTAL PROTEIN 5.3 gm/dL 6.0-8.3 L Specimen sligh tly (BEAKER) (test hemolyzed code = 770) ALBUMIN (BEAKER) 3.4 g/dL 3.5-5.0 L Specimen sl ightly (test code = 1145) hemolyzed ALKALINE 231 U/L 40-150 H PHOSPHATASE (BEAKER) (test code = 346) BILIRUBIN TOTAL 0.7 mg/dL 0.2-1.2 Specimen sli ghtly (BEAKER) (test hemolyzed code = 377) SODIUM (BEAKER) 137 meq/L 136-145 (test code = 381) POTASSIUM (BEAKER) 3.9 meq/L 3.5-5.1 Specimen slightly (test code = 379) hemolyzed CHLORIDE (BEAKER) 98 meq/L 98-107 (test code = 382) CO2 (BEAKER) (test 31 meq/L 22-29 H code = 355) BLOOD UREA 15 mg/dL 7-21 NITROGEN (BEAKER) (test code = 354) CREATININE 1.45 mg/dL 0.57-1.25 H Specimen slight ly (BEAKER) (test hemolyzed code = 358) GLUCOSE RANDOM 81 mg/dL 70-105 (BEAKER) (test code = 652) CALCIUM (BEAKER) 8.5 mg/dL 8.4-10.2 (test code = 697) AST (SGOT) 18 U/L 5-34 Specimen slight ly (BEAKER) (test hemolyzed code = 353) ALT (SGPT) 25 U/L 6-55 Specimen slight ly (BEAKER) (test hemolyzed code = 347) EGFR (BEAKER) 44 Interpretatio n of eGFR (test code = [...] not appl icable for dialysis patien ts LACTATE DEHYDROGENASE (LDH)2023-01-24 10:50:11 Test Item Value Reference Range Interpretation Comments LACTATE DEHYDROGENASE 412 U/L 125-220 H Specim en slightly (BEAKER) (test code = hemoly zed 635) [id number] 10:49:37 Test Item Value Reference Range Interpretation Comments MAGNESIUM (BEAKER) 1.6 mg/dL 1.6-2.6 Specimen slightly (test code = 627) hemolyzed RAD, CHEST, 1 VIEW, NON [id number] 09:40:00Reason for exam:- >leukocytosis, c/f pneumoniaShould this be performed at the bedside?->Yes [facility] GUANACODONATO : 1975 Sex: FFINAL REPORT RAD, CHEST, 1 VIEW, NON DEPT INDICATION: leukocytosis, c/f pneumonia COMPARISON: 01/20/2023 FINDINGS: Portable frontal view of the chest. IMPRESSION: Support Lines: Dialysis catheter tip overlies the atriocaval junction. Lungs and pleura: Airspace disease within the left lower lung and small left effusion are unchanged. Superimposed infection may be excluded clinically. No significant pneumothorax. Heart and mediastinum: Stable contours. Stable surgical changes. Additional findings: None. Signed: Krystyna Altamirano Verified Date/Time: 01/24/2023 09:40:53 Reading Location: [address] Reading Room [id number] 07:47:49 Test Item Value Reference Range Interpretation Comments HAPTOGLOBIN (BEAKER) (test code = 261 mg/dL 14-258 H 366) Security Patrol Officer ID - JSPOCT-GLUCOSE [id number] 07:41:57 Test Item Value Reference Range Interpretation Comments POC-GLUCOSE METER 85 mg/dL 70-110 : [facility] ([facility] (test code = [place], 1538) [address]: Security Patrol Officer/Techni waylon ID = [id number] for Yovanny Keating (CELLAVISION MANUAL DIFF)2023-01-24 06:48:13 Test Item Value Reference Range Interpretation Comments NEUTROPHILS - REL 94 % (CELLAVISION)(BEAKER) (test code = 2816) LYMPHOCYTES - REL 3 % (CELLAVISION)(BEAKER) (test code = 2817) MONOCYTES - REL 3 % (CELLAVISION)(BEAKER) (test code = 2818) NEUTROPHILS - ABS 15.79 K/ul 1.56-6.13 H (CELLAVISION)(BEAKER) (test code = 2830) LYMPHOCYTES - ABS 0.50 K/ul 1.18-3.74 L (CELLAVISION)(BEAKER) (test code = 2831) MONOCYTES - ABS 0.50 K/uL 0.24-0.36 H (CELLAVISION)(BEAKER) (test code = 2832) TOTAL COUNTED (BEAKER) (test code 100 = 1351) WBC MORPHOLOGY (BEAKER) (test Normal code = 487) PLT MORPHOLOGY (BEAKER) (test Normal code = 486) POLYCHROMATOPHILLIC RBCS(BEAKER) 2+ moderate (test code = 478) HYPOCHROMIA (BEAKER) (test code = 1+ few 963) ANISOCYTOSIS (BEAKER) (test code 1+ few = 961) MICROCYTES (BEAKER) (test code = 1+ few 965) POIKILOCYTES (BEAKER) (test code 1+ few = 966) SCHISTOCYTES (BEAKER) (test code 1+ few = 765) OVALOCYTES (BEAKER) (test code = 1+ few 477) ARTIFACT (CELLAVISION)(BEAKER) Present (test code = 3432) PLATELET CONCENTRATION Adequate (CELLAVISION)(BEAKER) (test code = 3438) Security Patrol Officer ID - Santa OverholtUser comments: Slide comments:CBC W/PLT COUNT & AUTO [id number] 06:48:11 Test Item Value Reference Range Interpretation Comments WHITE BLOOD CELL COUNT (BEAKER) 16.8 K/ L 3.5-10.5 H (test code = 775) RED BLOOD CELL COUNT (BEAKER) 2.93 M/ L 3.93-5.22 L (test code = 761) HEMOGLOBIN (BEAKER) (test code = 8.1 GM/DL 11.2-15.7 L 410) HEMATOCRIT (BEAKER) (test code = 27.0 % 34.1-44.9 L 411) MEAN CORPUSCULAR VOLUME (BEAKER) 92 fL 79-95 (test code = 753) MEAN CORPUSCULAR HEMOGLOBIN 27.6 pg 25.6-32.2 (BEAKER) (test code = 751) MEAN CORPUSCULAR HEMOGLOBIN CONC 30.0 GM/DL 32.2-35.5 L (BEAKER) (test code = 752) RED CELL DISTRIBUTION WIDTH 17.3 % 11.7-14.4 H (BEAKER) (test code = 412) PLATELET COUNT (BEAKER) (test 352 K/CU MM 150-450 code = 756) MEAN PLATELET VOLUME (BEAKER) 10.4 fL 9.4-12.3 (test code = 754) NUCLEATED RED BLOOD CELLS 0 /100 WBC 0-0 (BEAKER) (test code = 413) CALCIUM, [id number] 05:46:32 Test Item Value Reference Range Interpretation Comments CALCIUM IONIZED (BEAKER) (test 1.11 mmol/L 1.12-1.27 L code = 698) PH, BLOOD (BEAKER) (test code = 7.40 1810) [id number] 04:52:02 Test Item Value Reference Range Interpretation Comments PROTIME (BEAKER) (test code = 15.1 seconds 11.9-14.2 H 759) INR (BEAKER) (test code = 370) 1.26 <=5.90 PARTIAL THROMBOPLASTIN TIME 37.9 seconds 22.5-36.0 H (BEAKER) (test code = 760) RECOMMENDED COUMADIN/WARFARIN INR THERAPY RANGESSTANDARD DOSE: 2.0 - 3.0 Includes: PROPHYLAXIS for venous thrombosis, systemic embolization; TREATMENT for venous thrombosis and/or pulmonary embolus.HIGH RISK: Target INR is 2.5-3.5 for patients with mechanical heart valves.POCT-GLUCOSE [id number] 20:44:57 Test Item Value Reference Range Interpretation Comments POC-GLUCOSE METER 92 mg/dL 70-110 : TESTED A T [facility] 6720 (BEAKER) (test code = [facility], 1538) 52556: Security Patrol Officer/Techni waylon ID = [id number] for Cash Tobar POCT-GLUCOSE [id number] 15:40:15 Test Item Value Reference Range Interpretation Comments POC-GLUCOSE METER 113 mg/dL 70-110 H : TESTED A T [facility] 6720 (BEAKER) (test code = [facility], 1538) 45392: Security Patrol Officer/Techni waylon ID = [id number] for Yovanny Cox POCT-GLUCOSE [id number] 11:31:18 Test Item Value Reference Range Interpretation Comments POC-GLUCOSE METER 89 mg/dL 70-110 : TESTED A T [facility] 6720 (BEAKER) (test code = [facility], 1538) 93474: Security Patrol Officer/Techni waylon ID = [id number] for Yovanny Keating [id number] 11:31:12 Test Item Value Reference Range Interpretation Comments PHOSPHORUS (BEAKER) (test code = 1.6 mg/dL 2.3-4.7 L 604) Security Patrol Officer ID - [id number] 11:31:11 Test Item Value Reference Range Interpretation Comments MAGNESIUM (BEAKER) (test code = 1.6 mg/dL 1.6-2.6 627) Security Patrol Officer ID - EDCOMPREHENSIVE METABOLIC [id number] 11:31:10 Test Item Value Reference Range Interpretation Comments TOTAL PROTEIN 5.5 gm/dL 6.0-8.3 L (BEAKER) (test code = 770) ALBUMIN (BEAKER) 3.1 g/dL 3.5-5.0 L (test code = 1145) ALKALINE 232 U/L 40-150 H PHOSPHATASE (BEAKER) (test code = 346) BILIRUBIN TOTAL 0.7 mg/dL 0.2-1.2 (BEAKER) (test code = 377) SODIUM (BEAKER) 138 meq/L 136-145 (test code = 381) POTASSIUM (BEAKER) 3.6 meq/L 3.5-5.1 (test code = 379) CHLORIDE (BEAKER) 99 meq/L 98-107 (test code = 382) CO2 (BEAKER) (test 30 meq/L 22-29 H code = 355) BLOOD UREA 11 mg/dL 7-21 NITROGEN (BEAKER) (test code = 354) CREATININE 1.23 mg/dL 0.57-1.25 (BEAKER) (test code = 358) GLUCOSE RANDOM 85 mg/dL 70-105 (BEAKER) (test code = 652) CALCIUM (BEAKER) 8.5 mg/dL 8.4-10.2 (test code = 697) AST (SGOT) 19 U/L 5-34 (BEAKER) (test code = 353) ALT (SGPT) 26 U/L 6-55 (BEAKER) (test code = 347) EGFR (BEAKER) 54 Interpretatio n of eGFR (test code = [...] not appl icable for dialysis patien ts Security Patrol Officer ID - ED(CELLAVISION MANUAL DIFF)2023-01-23 08:32:33 Test Item Value Reference Range Interpretation Comments NEUTROPHILS - REL 94 % (CELLAVISION)(BEAKER) (test code = 2816) LYMPHOCYTES - REL 2 % (CELLAVISION)(BEAKER) (test code = 2817) MONOCYTES - REL 2 % (CELLAVISION)(BEAKER) (test code = 2818) EOSINOPHILS - REL 1 % (CELLAVISION)(BEAKER) (test code = 2819) BANDS - REL (CELLAVISION)(BEAKER) 1 % 0-10 (test code = 2826) NEUTROPHILS - ABS 11.09 K/ul 1.56-6.13 H (CELLAVISION)(BEAKER) (test code = 2830) LYMPHOCYTES - ABS 0.24 K/ul 1.18-3.74 L (CELLAVISION)(BEAKER) (test code = 2831) MONOCYTES - ABS 0.24 K/uL 0.24-0.36 (CELLAVISION)(BEAKER) (test code = 2832) EOSINOPHILS - ABS 0.12 K/uL 0.04-0.36 (CELLAVISION)(BEAKER) (test code = 2834) BANDS - ABS (CELLAVISION)(BEAKER) 0.12 K/uL 0.00-0.80 (test code = 2840) TOTAL COUNTED (BEAKER) (test code 100 = 1351) WBC MORPHOLOGY (BEAKER) (test Normal code = 487) PLT MORPHOLOGY (BEAKER) (test Normal code = 486) POLYCHROMATOPHILLIC RBCS(BEAKER) 1+ few (test code = 478) HYPOCHROMIA (BEAKER) (test code = 1+ few 963) ANISOCYTOSIS (BEAKER) (test code 1+ few = 961) MACROCYTES (BEAKER) (test code = 1+ few 964) POIKILOCYTES (BEAKER) (test code 2+ moderate = 966) SCHISTOCYTES (BEAKER) (test code 1+ few = 765) OVALOCYTES (BEAKER) (test code = 2+ moderate 477) ACANTHOCYTES (BEAKER) (test code 1+ few = 471) ARTIFACT (CELLAVISION)(BEAKER) Present (test code = 3432) PLATELET CONCENTRATION Adequate (CELLAVISION)(BEAKER) (test code = 3438) Security Patrol Officer ID - Santa OverholtUser comments: Slide comments:CBC W/PLT COUNT & AUTO [id number] 08:32:31 Test Item Value Reference Range Interpretation Comments WHITE BLOOD CELL COUNT (BEAKER) 11.8 K/ L 3.5-10.5 H (test code = 775) RED BLOOD CELL COUNT (BEAKER) 2.81 M/ L 3.93-5.22 L (test code = 761) HEMOGLOBIN (BEAKER) (test code = 7.7 GM/DL 11.2-15.7 L 410) HEMATOCRIT (BEAKER) (test code = 25.8 % 34.1-44.9 L 411) MEAN CORPUSCULAR VOLUME (BEAKER) 92 fL 79-95 (test code = 753) MEAN CORPUSCULAR HEMOGLOBIN 27.4 pg 25.6-32.2 (BEAKER) (test code = 751) MEAN CORPUSCULAR HEMOGLOBIN CONC 29.8 GM/DL 32.2-35.5 L (BEAKER) (test code = 752) RED CELL DISTRIBUTION WIDTH 17.4 % 11.7-14.4 H (BEAKER) (test code = 412) PLATELET COUNT (BEAKER) (test 362 K/CU MM 150-450 code = 756) MEAN PLATELET VOLUME (BEAKER) 9.7 fL 9.4-12.3 (test code = 754) NUCLEATED RED BLOOD CELLS 0 /100 WBC 0-0 (BEAKER) (test code = 413) POCT-GLUCOSE [id number] 07:39:04 Test Item Value Reference Range Interpretation Comments POC-GLUCOSE METER 82 mg/dL 70-110 : [facility] (BEAKER) (test code = [facility], 1538) 33783: Security Patrol Officer/Techni waylon ID = [id number] for Yovanny Keating [id number] 06:44:16 Test Item Value Reference Range Interpretation Comments PROTIME (BEAKER) (test code = 14.6 seconds 11.9-14.2 H 759) INR (BEAKER) (test code = 370) 1.16 <=5.90 PARTIAL THROMBOPLASTIN TIME 40.6 seconds 22.5-36.0 H (BEAKER) (test code = 760) RECOMMENDED COUMADIN/WARFARIN INR THERAPY RANGESSTANDARD DOSE: 2.0 - 3.0 Includes: PROPHYLAXIS for venous thrombosis, systemic embolization; TREATMENT for venous thrombosis and/or pulmonary embolus.HIGH RISK: Target INR is 2.5-3.5 for patients with mechanical heart valves.POCT-GLUCOSE [id number] 21:09:16 Test Item Value Reference Range Interpretation Comments POC-GLUCOSE METER 110 mg/dL 70-110 : TESTED A T [facility] 6720 (BEAKER) (test code = [facility], 1538) [id number]: Security Patrol Officer/Techni waylon ID = [id number] for LAURO ALCOCER POCT-GLUCOSE [id number] 11:58:13 Test Item Value Reference Range Interpretation Comments POC-GLUCOSE METER 84 mg/dL 70-110 : TESTED A T [facility] 6720 (BEAKER) (test code = [facility], 1538) 05348: Security Patrol Officer/Techni waylon ID = [id number] for CHARLEY CHICAS POCT-GLUCOSE [id number] 08:49:41 Test Item Value Reference Range Interpretation Comments POC-GLUCOSE METER 72 mg/dL 70-110 : TESTED A T [facility] 6720 (BEAKER) (test code = [facility], [facility]8) [address]54: Security Patrol Officer/Techni waylon ID = [id number] for CHARLEY CHICAS POCT-GLUCOSE [id number] 07:46:29 Test Item Value Reference Range Interpretation Comments POC-GLUCOSE METER 68 mg/dL 70-110 L : TESTED A T [facility] 6720 (BEAKER) (test code = [facility], [facility]8) [address]: Security Patrol Officer/Techni waylon ID = [id number] for CHARLEY CHICAS CBC (HEMOGRAM ONLY)2023-01-22 07:41:48 Test Item Value Reference Range Interpretation Comments WHITE BLOOD CELL COUNT (BEAKER) 8.7 K/ L 3.5-10.5 (test code = 775) RED BLOOD CELL COUNT (BEAKER) 2.48 M/ L 3.93-5.22 L (test code = 761) HEMOGLOBIN (BEAKER) (test code = 6.9 GM/DL 11.2-15.7 L 410) HEMATOCRIT (BEAKER) (test code = 22.9 % 34.1-44.9 L 411) MEAN CORPUSCULAR VOLUME (BEAKER) 92 fL 79-95 (test code = 753) MEAN CORPUSCULAR HEMOGLOBIN 27.8 pg 25.6-32.2 (BEAKER) (test code = 751) MEAN CORPUSCULAR HEMOGLOBIN CONC 30.1 GM/DL 32.2-35.5 L (BEAKER) (test code = 752) RED CELL DISTRIBUTION WIDTH 17.6 % 11.7-14.4 H (BEAKER) (test code = 412) PLATELET COUNT (BEAKER) (test 388 K/CU MM 150-450 code = 756) MEAN PLATELET VOLUME (BEAKER) 9.8 fL 9.4-12.3 (test code = 754) NUCLEATED RED BLOOD CELLS 0 /100 WBC 0-0 (BEAKER) (test code = 413) [id number] 07:28:29 Test Item Value Reference Range Interpretation Comments PHOSPHORUS (BEAKER) (test code = 2.5 mg/dL 2.3-4.7 604) Security Patrol Officer ID - [id number] 07:28:28 Test Item Value Reference Range Interpretation Comments MAGNESIUM (BEAKER) (test code = 1.6 mg/dL 1.6-2.6 627) Security Patrol Officer ID - MMCOMPREHENSIVE METABOLIC [id number] 07:28:27 Test Item Value Reference Range Interpretation Comments TOTAL PROTEIN 5.1 gm/dL 6.0-8.3 L (BEAKER) (test code = 770) ALBUMIN (BEAKER) 3.1 g/dL 3.5-5.0 L (test code = 1145) ALKALINE 237 U/L 40-150 H PHOSPHATASE (BEAKER) (test code = 346) BILIRUBIN TOTAL 0.9 mg/dL 0.2-1.2 (BEAKER) (test code = 377) SODIUM (BEAKER) 137 meq/L 136-145 (test code = 381) POTASSIUM (BEAKER) 4.3 meq/L 3.5-5.1 (test code = 379) CHLORIDE (BEAKER) 98 meq/L 98-107 (test code = 382) CO2 (BEAKER) (test 30 meq/L 22-29 H code = 355) BLOOD UREA 20 mg/dL 7-21 NITROGEN (BEAKER) (test code = 354) CREATININE 1.69 mg/dL 0.57-1.25 H (BEAKER) (test code = 358) GLUCOSE RANDOM 70 mg/dL 70-105 (BEAKER) (test code = 652) CALCIUM (BEAKER) 8.6 mg/dL 8.4-10.2 (test code = 697) AST (SGOT) 21 U/L 5-34 (BEAKER) (test code = 353) ALT (SGPT) 26 U/L 6-55 (BEAKER) (test code = 347) EGFR (BEAKER) 37 Interpretatio n of eGFR (test code = [...] not appl icable for dialysis patien ts Security Patrol Officer ID - [id number] 07:01:23 Test Item Value Reference Range Interpretation Comments PROTIME (Upside) (test code = 15.8 seconds 11.9-14.2 H 759) INR (Upside) (test code = 370) 1.34 <=5.90 PARTIAL THROMBOPLASTIN TIME 41.1 seconds 22.5-36.0 H (Upside) (test code = 760) RECOMMENDED COUMADIN/WARFARIN INR THERAPY RANGESSTANDARD DOSE: 2.0 - 3.0 Includes: PROPHYLAXIS for venous thrombosis, systemic embolization; TREATMENT for venous thrombosis and/or pulmonary embolus.HIGH RISK: Target INR is 2.5-3.5 for patients with mechanical heart valves.Prepare [id number] 23:54:00 Test Item Value Reference Range Interpretation Comments Unit ABO (test code = O Pos [id number]) UNIT NUMBER (test code = [id number] 934-0) Status (test code = 3185567) TX_TIMEINCHART Blood Bank Product (test code RED BLOOD CELLS = 2263) PRODUCT CODE (test code = W3398C85 933-2) CROSSMATCH (test code = 2264) [facility] [id number] 21:40:56 Test Item Value Reference Range Interpretation Comments POC-GLUCOSE METER 102 mg/dL 70-110 : TESTED A T [facility]20 (BEAKER) (test code = [place], 1538) 518[address]: Security Patrol Officer/Techni waylon ID = [id number] for dana Екатерина POCT-GLUCOSE [id number] 15:46:51 Test Item Value Reference Range Interpretation Comments POC-GLUCOSE METER 132 mg/dL 70-110 H : TESTED A T [facility] 6720 (BEAKER) (test code = [facility], 1538) 32238: Security Patrol Officer/Techni waylon ID = [id number] for Yovanny Cox POCT-GLUCOSE [id number] 11:28:33 Test Item Value Reference Range Interpretation Comments POC-GLUCOSE METER 89 mg/dL 70-110 : TESTED A T [facility] 6720 (BEAKER) (test code = [facility], 1538) 68949: Security Patrol Officer/Techni waylon ID = [id number] for Yovanny Keating POCT-GLUCOSE [id number] 07:45:44 Test Item Value Reference Range Interpretation Comments POC-GLUCOSE METER 97 mg/dL 70-110 : TESTED A T [facility] 6720 (BEAKER) (test code = [facility], 1538) 52694: Security Patrol Officer/Techni waylon ID = [id number] for Yovanny Keating [id number] 07:06:39 Test Item Value Reference Range Interpretation Comments HAPTOGLOBIN (BEAKER) (test code = 241 mg/dL 14-258 366) Security Patrol Officer ID - ADMINLACTATE DEHYDROGENASE (LDH)2023-01-21 06:44:19 Test Item Value Reference Range Interpretation Comments LACTATE DEHYDROGENASE (BEAKER) (test 341 U/L 125-220 H code = 635) Security Patrol Officer ID - [id number] 06:44:18 Test Item Value Reference Range Interpretation Comments MAGNESIUM (BEAKER) (test code = 1.6 mg/dL 1.6-2.6 627) Security Patrol Officer ID - [id number] 06:44:18 Test Item Value Reference Range Interpretation Comments PHOSPHORUS (BEAKER) (test code = 2.5 mg/dL 2.3-4.7 604) Security Patrol Officer ID - ADMINCOMPREHENSIVE METABOLIC [id number] 06:44:17 Test Item Value Reference Range Interpretation Comments TOTAL PROTEIN 5.3 gm/dL 6.0-8.3 L (BEAKER) (test code = 770) ALBUMIN (BEAKER) 3.2 g/dL 3.5-5.0 L (test code = 1145) ALKALINE 220 U/L 40-150 H PHOSPHATASE (BEAKER) (test code = 346) BILIRUBIN TOTAL 0.7 mg/dL 0.2-1.2 (BEAKER) (test code = 377) SODIUM (BEAKER) 136 meq/L 136-145 (test code = 381) POTASSIUM (BEAKER) 3.3 meq/L 3.5-5.1 L (test code = 379) CHLORIDE (BEAKER) 99 meq/L 98-107 (test code = 382) CO2 (BEAKER) (test 30 meq/L 22-29 H code = 355) BLOOD UREA 15 mg/dL 7-21 NITROGEN (BEAKER) (test code = 354) CREATININE 1.47 mg/dL 0.57-1.25 H (BEAKER) (test code = 358) GLUCOSE RANDOM 87 mg/dL 70-105 (BEAKER) (test code = 652) CALCIUM (BEAKER) 8.3 mg/dL 8.4-10.2 L (test code = 697) AST (SGOT) 17 U/L 5-34 (BEAKER) (test code = 353) ALT (SGPT) 28 U/L 6-55 (BEAKER) (test code = 347) EGFR (BEAKER) 43 Interpretatio n of eGFR (test code = [...] not appl icable for dialysis patien ts Security Patrol Officer ID - ADMINPT/[id number] 06:34:16 Test Item Value Reference Range Interpretation Comments PROTIME (BEAKER) (test code = 16.3 seconds 11.9-14.2 H 759) INR (BEAKER) (test code = 370) 1.40 <=5.90 PARTIAL THROMBOPLASTIN TIME 40.2 seconds 22.5-36.0 H (BEAKER) (test code = 760) RECOMMENDED COUMADIN/WARFARIN INR THERAPY RANGESSTANDARD DOSE: 2.0 - 3.0 Includes: PROPHYLAXIS for venous thrombosis, systemic embolization; TREATMENT for venous thrombosis and/or pulmonary embolus.HIGH RISK: Target INR is 2.5-3.5 for patients with mechanical heart valves.CALCIUM, [id number] 06:28:27 Test Item Value Reference Range Interpretation Comments CALCIUM IONIZED (BEAKER) (test 1.09 mmol/L 1.12-1.27 L code = 698) PH, BLOOD (BEAKER) (test code = 7.43 1810) CBC W/PLT COUNT & AUTO [id number] 06:26:41 Test Item Value Reference Range Interpretation Comments WHITE BLOOD CELL COUNT (BEAKER) 9.3 K/ L 3.5-10.5 (test code = 775) RED BLOOD CELL COUNT (BEAKER) 2.52 M/ L 3.93-5.22 L (test code = 761) HEMOGLOBIN (BEAKER) (test code = 7.0 GM/DL 11.2-15.7 L 410) HEMATOCRIT (BEAKER) (test code = 22.8 % 34.1-44.9 L 411) MEAN CORPUSCULAR VOLUME (BEAKER) 91 fL 79-95 (test code = 753) MEAN CORPUSCULAR HEMOGLOBIN 27.8 pg 25.6-32.2 (BEAKER) (test code = 751) MEAN CORPUSCULAR HEMOGLOBIN CONC 30.7 GM/DL 32.2-35.5 L (BEAKER) (test code = 752) RED CELL DISTRIBUTION WIDTH 17.9 % 11.7-14.4 H (BEAKER) (test code = 412) PLATELET COUNT (BEAKER) (test 377 K/CU MM 150-450 code = 756) MEAN PLATELET VOLUME (BEAKER) 9.9 fL 9.4-12.3 (test code = 754) NUCLEATED RED BLOOD CELLS 0 /100 WBC 0-0 (BEAKER) (test code = 413) NEUTROPHILS RELATIVE PERCENT 79 % (BEAKER) (test code = 429) LYMPHOCYTES RELATIVE PERCENT 8 % (BEAKER) (test code = 430) MONOCYTES RELATIVE PERCENT 8 % (BEAKER) (test code = 431) EOSINOPHILS RELATIVE PERCENT 0 % (BEAKER) (test code = 432) BASOPHILS RELATIVE PERCENT 0 % (BEAKER) (test code = 437) NEUTROPHILS ABSOLUTE COUNT 7.35 K/ L 1.56-6.13 H (BEAKER) (test code = 670) LYMPHOCYTES ABSOLUTE COUNT 0.76 K/ L 1.18-3.74 L (BEAKER) (test code = 414) MONOCYTES ABSOLUTE COUNT (BEAKER) 0.75 K/ L 0.24-0.36 H (test code = 415) EOSINOPHILS ABSOLUTE COUNT 0.01 K/ L 0.04-0.36 L (BEAKER) (test code = 416) BASOPHILS ABSOLUTE COUNT (BEAKER) 0.01 K/ L 0.01-0.08 (test code = 417) IMMATURE GRANULOCYTES-RELATIVE 4.50 % 0.00-1.00 H PERCENT (BEAKER) (test code = 2801) RETICULOCYTE [id number] 06:26:22 Test Item Value Reference Range Interpretation Comments RETICULOCYTE COUNT PCT (BEAKER) (test 2.3 % 0.5-1.7 H code = 575) Security Patrol Officer ID - 6000POCT-GLUCOSE [id number] 23:37:10 Test Item Value Reference Range Interpretation Comments POC-GLUCOSE METER 112 mg/dL 70-110 H : TESTED A T [facility] 6720 (BEAKER) (test code = [place], 1538) 312[address]: Security Patrol Officer/Techni waylon ID = [id number] for Se cortez, Екатерина RAD, CHEST, 1 VIEW, NON [id number] 22:30:00Upright - For permanent copy onlyReason for exam:->line placementShould this be performed at the [facility]?->[facility] : 1975 Sex: FFINAL REPORT Chest one view. Clinical history: line placement Comparison: 01/20/2023 Discussion: A frontal chest is provided. Cardiomediastinal contours are unchanged. There is a left IJ line, tip projects over the cavoatrial junction. Right hemidiaphragm is elevated. There is mild vascular congestion. Perihilar hazy opacities are again seen. No pneumothorax, or large effusion. Signed: Jessica Sandra Verified Date/Time: 01/20/2023 22:30:52 RAD, CHEST, 1 VIEW, NON [id number] 21:48:00Reason for exam:->sobShould this be performed at the bedside?->Yes [facility] 1975 Sex: FFINAL REPORT Chest one view. Clinical history: sob Comparison: January 16iscussion: A frontal chest is provided. Cardiomediastinal contours are unchanged. Right IJ line hasbeen removed. A catheter projects over the left axilla, probably a PICC line. Left greater than right airspace opacities are not significantly changed. Low lung volume. No pneumothorax or large effusion. No acute bony abnormality. Signed: Jessica Sandra Verified Date/Time: 01/20/2023 21:48:44 FL, FLUORO, NON-SPECIFIC, UP TO 1 [id number] 18:40:00Reason for exam:->End stage renal disease [facility] : 1975 Sex: FAn imaging unit was utilized for this procedure. No radiologist interpretation was requested. Refer to the EMR for findings. Refer to PACS for any patient radiation dose information.POCT-GLUCOSE [id number] 11:45:57 Test Item Value Reference Range Interpretation Comments POC-GLUCOSE METER 81 mg/dL 70-110 : TESTED A T [facility] 6720 (BEAKER) (test code = [facility], 1538) 33770: Security Patrol Officer/Techni waylon ID = [id number] for Yovanny Keating POCT-GLUCOSE [id number] 07:53:41 Test Item Value Reference Range Interpretation Comments POC-GLUCOSE METER 77 mg/dL 70-110 : TESTED A T [facility] 6720 (BEAKER) (test code = [facility], 1538) 60927: Security Patrol Officer/Techni waylon ID = [id number] for Yovanny Keating COMPREHENSIVE METABOLIC [id number] 04:22:41 Test Item Value Reference Range Interpretation Comments TOTAL PROTEIN 5.1 gm/dL 6.0-8.3 L (BEAKER) (test code = 770) ALBUMIN (BEAKER) 3.1 g/dL 3.5-5.0 L (test code = 1145) ALKALINE 232 U/L 40-150 H PHOSPHATASE (BEAKER) (test code = 346) BILIRUBIN TOTAL 0.7 mg/dL 0.2-1.2 (BEAKER) (test code = 377) SODIUM (BEAKER) 134 meq/L 136-145 L (test code = 381) POTASSIUM (BEAKER) 4.0 meq/L 3.5-5.1 (test code = 379) CHLORIDE (BEAKER) 97 meq/L 98-107 L (test code = 382) CO2 (BEAKER) (test 28 meq/L 22-29 code = 355) BLOOD UREA 21 mg/dL 7-21 NITROGEN (BEAKER) (test code = 354) CREATININE 1.63 mg/dL 0.57-1.25 H (BEAKER) (test code = 358) GLUCOSE RANDOM 83 mg/dL 70-105 (BEAKER) (test code = 652) CALCIUM (BEAKER) 8.6 mg/dL 8.4-10.2 (test code = 697) AST (SGOT) 17 U/L 5-34 (BEAKER) (test code = 353) ALT (SGPT) 29 U/L 6-55 (BEAKER) (test code = 347) EGFR (BEAKER) 38 Interpretatio n of eGFR (test code = [...] not appl icable for dialysis patien ts Security Patrol Officer ID - ADMINOperator ID - [id number] 04:14:37 Test Item Value Reference Range Interpretation Comments PHOSPHORUS (BEAKER) (test code = 2.0 mg/dL 2.3-4.7 L 604) Security Patrol Officer ID - [id number] 04:14:36 Test Item Value Reference Range Interpretation Comments MAGNESIUM (BEAKER) (test code = 1.6 mg/dL 1.6-2.6 627) Security Patrol Officer ID - ADMINPT/[id number] 03:57:14 Test Item Value Reference Range Interpretation Comments PROTIME (BEAKER) (test code = 15.6 seconds 11.9-14.2 H 759) INR (BEAKER) (test code = 370) 1.32 <=5.90 PARTIAL THROMBOPLASTIN TIME 46.4 seconds 22.5-36.0 H (BEAKER) (test code = 760) RECOMMENDED COUMADIN/WARFARIN INR THERAPY RANGESSTANDARD DOSE: 2.0 - 3.0 Includes: PROPHYLAXIS for venous thrombosis, systemic embolization; TREATMENT for venous thrombosis and/or pulmonary embolus.HIGH RISK: Target INR is 2.5-3.5 for patients with mechanical heart valves.CBC W/PLT COUNT & AUTO [id number] 03:45:35 Test Item Value Reference Range Interpretation Comments WHITE BLOOD CELL COUNT (BEAKER) 9.9 K/ L 3.5-10.5 (test code = 775) RED BLOOD CELL COUNT (BEAKER) 2.26 M/ L 3.93-5.22 L (test code = 761) HEMOGLOBIN (BEAKER) (test code = 6.3 GM/DL 11.2-15.7 L 410) HEMATOCRIT (BEAKER) (test code = 21.2 % 34.1-44.9 L 411) MEAN CORPUSCULAR VOLUME (BEAKER) 94 fL 79-95 (test code = 753) MEAN CORPUSCULAR HEMOGLOBIN 27.9 pg 25.6-32.2 (BEAKER) (test code = 751) MEAN CORPUSCULAR HEMOGLOBIN CONC 29.7 GM/DL 32.2-35.5 L (BEAKER) (test code = 752) RED CELL DISTRIBUTION WIDTH 17.7 % 11.7-14.4 H (BEAKER) (test code = 412) PLATELET COUNT (BEAKER) (test 398 K/CU MM 150-450 code = 756) MEAN PLATELET VOLUME (BEAKER) 10.1 fL 9.4-12.3 (test code = 754) NUCLEATED RED BLOOD CELLS 0 /100 WBC 0-0 (BEAKER) (test code = 413) NEUTROPHILS RELATIVE PERCENT 78 % (BEAKER) (test code = 429) LYMPHOCYTES RELATIVE PERCENT 9 % (BEAKER) (test code = 430) MONOCYTES RELATIVE PERCENT 10 % (BEAKER) (test code = 431) EOSINOPHILS RELATIVE PERCENT 0 % (BEAKER) (test code = 432) BASOPHILS RELATIVE PERCENT 0 % (BEAKER) (test code = 437) NEUTROPHILS ABSOLUTE COUNT 7.66 K/ L 1.56-6.13 H (BEAKER) (test code = 670) LYMPHOCYTES ABSOLUTE COUNT 0.93 K/ L 1.18-3.74 L (BEAKER) (test code = 414) MONOCYTES ABSOLUTE COUNT (BEAKER) 0.97 K/ L 0.24-0.36 H (test code = 415) EOSINOPHILS ABSOLUTE COUNT 0.03 K/ L 0.04-0.36 L (BEAKER) (test code = 416) BASOPHILS ABSOLUTE COUNT (BEAKER) 0.01 K/ L 0.01-0.08 (test code = 417) IMMATURE GRANULOCYTES-RELATIVE 2.80 % 0.00-1.00 H PERCENT (BEAKER) (test code = 2801) CALCIUM, [id number] 03:17:38 Test Item Value Reference Range Interpretation Comments CALCIUM IONIZED (BEAKER) (test 1.14 mmol/L 1.12-1.27 code = 698) PH, BLOOD (BEAKER) (test code = 7.39 1810) POCT-GLUCOSE [id number] 21:06:26 Test Item Value Reference Range Interpretation Comments POC-GLUCOSE METER 133 mg/dL 70-110 H : TESTED A T [facility] 6720 ([facility] (test code = [place], 1538) 29[address]: Security Patrol Officer/Techni waylon ID = [id number] for An Cash harrington HCG, QUANTITATIVE, [id number] 19:16:06 Test Item Value Reference Range Interpretation Comments GONADOTROPIN, CHORIONIC (HCG) QUANT < mIU/mL 0-10 (AKER) (test code = 649) Non- Females: <10 mIU/mL Females: Gestation Age Reference Range(mIU/mL) 0.2-1 Week 5-50 1-2 Weeks 50-500 2-3 Weeks 100-5,000 3-4 Weeks 500-10,000 4-5 Weeks 1,000-50,000 5-6 Weeks 10,000-100,000 6-8 Weeks 15,000- 200,000 2-3 Months 10,000-100,000 Security Patrol Officer ID - ADMINPOCT-GLUCOSE METER 2023-01-19 16:17:17 Test Item Value Reference Range Interpretation Comments POC-GLUCOSE METER 142 mg/dL 70-110 H : TESTED A T [facility] 6720 (BEAKER) (test code = [facility], 1538) 87442: Security Patrol Officer/Techni waylon ID = [id number] for Yovanny Cox POCT-GLUCOSE [id number] 11:49:19 Test Item Value Reference Range Interpretation Comments POC-GLUCOSE METER 97 mg/dL 70-110 : TESTED A T [facility] 6720 (BEAKER) (test code = [facility], 1538) 47745: Security Patrol Officer/Techni waylon ID = [id number] for Yovanny Keating POCT-GLUCOSE [id number] 11:25:52 Test Item Value Reference Range Interpretation Comments POC-GLUCOSE METER 83 mg/dL 70-110 : TESTED A T [facility] 6720 (BEAKER) (test code = [facility], 1538) 34244: Security Patrol Officer/Techni waylon ID = [id number] for Yovanny Keating BLOOD [id number] 11:00:41 Test Item Value Reference Range Interpretation Comments CULTURE (BEAKER) (test No growth in 5 days code = 1095) BLOOD [id number] 11:00:40 Test Item Value Reference Range Interpretation Comments CULTURE (BEAKER) (test No growth in 5 days code = 1095) [id number] 07:10:24 Test Item Value Reference Range Interpretation Comments PHOSPHORUS (BEAKER) (test code = 1.9 mg/dL 2.3-4.7 L 604) Security Patrol Officer ID - [id number] 07:10:23 Test Item Value Reference Range Interpretation Comments MAGNESIUM (BEAKER) (test code = 1.7 mg/dL 1.6-2.6 627) Security Patrol Officer ID - mmCOMPREHENSIVE METABOLIC [id number] 07:10:22 Test Item Value Reference Range Interpretation Comments TOTAL PROTEIN 4.9 gm/dL 6.0-8.3 L (BEAKER) (test code = 770) ALBUMIN (BEAKER) 2.9 g/dL 3.5-5.0 L (test code = 1145) ALKALINE 247 U/L 40-150 H PHOSPHATASE (BEAKER) (test code = 346) BILIRUBIN TOTAL 0.8 mg/dL 0.2-1.2 (BEAKER) (test code = 377) SODIUM (BEAKER) 137 meq/L 136-145 (test code = 381) POTASSIUM (BEAKER) 3.5 meq/L 3.5-5.1 (test code = 379) CHLORIDE (BEAKER) 100 meq/L 98-107 (test code = 382) CO2 (BEAKER) (test 31 meq/L 22-29 H code = 355) BLOOD UREA 14 mg/dL 7-21 NITROGEN (BEAKER) (test code = 354) CREATININE 1.20 mg/dL 0.57-1.25 (BEAKER) (test code = 358) GLUCOSE RANDOM 77 mg/dL 70-105 (BEAKER) (test code = 652) CALCIUM (BEAKER) 8.4 mg/dL 8.4-10.2 (test code = 697) AST (SGOT) 18 U/L 5-34 (BEAKER) (test code = 353) ALT (SGPT) 32 U/L 6-55 (BEAKER) (test code = 347) EGFR (BEAKER) 55 Interpretati on of eGFR (test code = 1092) mL/min/1.73 [...] not appl icable for dialysis patien ts Security Patrol Officer ID - mmCBC (HEMOGRAM ONLY)2023-01-19 06:27:20 Test Item Value Reference Range Interpretation Comments WHITE BLOOD CELL COUNT (BEAKER) 8.2 K/ L 3.5-10.5 (test code = 775) RED BLOOD CELL COUNT (BEAKER) 2.35 M/ L 3.93-5.22 L (test code = 761) HEMOGLOBIN (BEAKER) (test code = 6.5 GM/DL 11.2-15.7 L 410) HEMATOCRIT (BEAKER) (test code = 21.9 % 34.1-44.9 L 411) MEAN CORPUSCULAR VOLUME (BEAKER) 93 fL 79-95 (test code = 753) MEAN CORPUSCULAR HEMOGLOBIN 27.7 pg 25.6-32.2 (BEAKER) (test code = 751) MEAN CORPUSCULAR HEMOGLOBIN CONC 29.7 GM/DL 32.2-35.5 L (BEAKER) (test code = 752) RED CELL DISTRIBUTION WIDTH 17.7 % 11.7-14.4 H (BEAKER) (test code = 412) PLATELET COUNT (BEAKER) (test 309 K/CU MM 150-450 code = 756) MEAN PLATELET VOLUME (BEAKER) 10.0 fL 9.4-12.3 (test code = 754) NUCLEATED RED BLOOD CELLS 0 /100 WBC 0-0 (BEAKER) (test code = 413) [id number] 06:07:46 Test Item Value Reference Range Interpretation Comments PROTIME (BEAKER) (test code = 15.8 seconds 11.9-14.2 H 759) INR (BEAKER) (test code = 370) 1.29 <=5.90 PARTIAL THROMBOPLASTIN TIME 45.0 seconds 22.5-36.0 H (BEAKER) (test code = 760) RECOMMENDED COUMADIN/WARFARIN INR THERAPY RANGESSTANDARD DOSE: 2.0 - 3.0 Includes: PROPHYLAXIS for venous thrombosis, systemic embolization; TREATMENT for venous thrombosis and/or pulmonary embolus.HIGH RISK: Target INR is 2.5-3.5 for patients with mechanical heart valves.POCT-GLUCOSE [id number] 21:34:59 Test Item Value Reference Range Interpretation Comments POC-GLUCOSE METER 94 mg/dL 70-110 : TESTED A T [facility] 6720 (BEAKER) (test code = [place] [facility], 1538) 47215: Security Patrol Officer/Techni waylon ID = [id number] for STAS ALONZO BLOOD [id number] 21:00:46 Test Item Value Reference Range Interpretation Comments CULTURE (BEAKER) (test No growth in 5 days code = 1095) BLOOD [id number] 21:00:45 Test Item Value Reference Range Interpretation Comments CULTURE (BEAKER) (test No growth in 5 days code = 1095) POCT-GLUCOSE [id number] 17:53:09 Test Item Value Reference Range Interpretation Comments POC-GLUCOSE METER 91 mg/dL 70-110 : TESTED A T [facility] 6720 (BEAKER) (test code = [facility], 1538) 93667: Security Patrol Officer/Techni waylon ID = [id number] for Cortney Zaragoza LACTATE DEHYDROGENASE (LDH)2023-01-18 16:24:21 Test Item Value Reference Range Interpretation Comments LACTATE DEHYDROGENASE (BEAKER) (test 309 U/L 125-220 H code = 635) Security Patrol Officer ID - BSRETICULOCYTE [id number] 16:05:25 Test Item Value Reference Range Interpretation Comments RETICULOCYTE COUNT PCT (AKER) (test 1.6 % 0.5-1.7 code = 575) Security Patrol Officer ID - [id number] B SURFACE [id number] 13:51:56 Test Item Value Reference Range Interpretation Comments HEPATITIS B SURFACE ANTIGEN (2) Nonreactive Nonreactive (AKER) (test code = 2585) Specimen is considered negative for HBsAg.[id number] 13:22:52 Test Item Value Reference Range Interpretation Comments HAPTOGLOBIN (BEAKER) (test code = 209 mg/dL 14-258 366) Security Patrol Officer ID - mmPOCT-GLUCOSE [id number] 12:36:32 Test Item Value Reference Range Interpretation Comments POC-GLUCOSE METER 96 mg/dL 70-110 : TESTED A T [facility] 6720 (BEAKER) (test code = [facility], 1538) 84664: Security Patrol Officer/Techni waylon ID = [id number] for VAMSI ER, ONELIA POCT-GLUCOSE [id number] 08:31:02 Test Item Value Reference Range Interpretation Comments POC-GLUCOSE METER 89 mg/dL 70-110 : TESTED A T [facility] 6720 (BEAKER) (test code = [facility], 1538) 02694: Security Patrol Officer/Techni waylon ID = [id number] for VAMSI ER, ONELIA COMPREHENSIVE METABOLIC [id number] 05:46:56 Test Item Value Reference Range Interpretation Comments TOTAL PROTEIN 4.9 gm/dL 6.0-8.3 L (BEAKER) (test code = 770) ALBUMIN (BEAKER) 2.8 g/dL 3.5-5.0 L (test code = 1145) ALKALINE 265 U/L 40-150 H PHOSPHATASE (BEAKER) (test code = 346) BILIRUBIN TOTAL 0.8 mg/dL 0.2-1.2 (BEAKER) (test code = 377) SODIUM (BEAKER) 133 meq/L 136-145 L (test code = 381) POTASSIUM (BEAKER) 4.6 meq/L 3.5-5.1 (test code = 379) CHLORIDE (BEAKER) 96 meq/L 98-107 L (test code = 382) CO2 (BEAKER) (test 29 meq/L 22-29 code = 355) BLOOD UREA 32 mg/dL 7-21 H NITROGEN (BEAKER) (test code = 354) CREATININE 2.14 mg/dL 0.57-1.25 H (BEAKER) (test code = 358) GLUCOSE RANDOM 79 mg/dL 70-105 (BEAKER) (test code = 652) CALCIUM (BEAKER) 8.8 mg/dL 8.4-10.2 (test code = 697) AST (SGOT) 19 U/L 5-34 (BEAKER) (test code = 353) ALT (SGPT) 39 U/L 6-55 (BEAKER) (test code = 347) EGFR (BEAKER) 28 Interpretatio n of eGFR (test code = [...] not appl icable for dialysis patien ts Security Patrol Officer ID - [id number] 05:15:16 Test Item Value Reference Range Interpretation Comments PHOSPHORUS (BEAKER) (test code = 2.7 mg/dL 2.3-4.7 604) Security Patrol Officer ID - [id number] 05:15:14 Test Item Value Reference Range Interpretation Comments MAGNESIUM (BEAKER) (test code = 1.7 mg/dL 1.6-2.6 627) Security Patrol Officer ID - [id number] 05:14:16 Test Item Value Reference Range Interpretation Comments PROTIME (BEAKER) (test code = 15.7 seconds 11.9-14.2 H 759) INR (BEAKER) (test code = 370) 1.33 <=5.90 PARTIAL THROMBOPLASTIN TIME 41.8 seconds 22.5-36.0 H (BEAKER) (test code = 760) RECOMMENDED COUMADIN/WARFARIN INR THERAPY RANGESSTANDARD DOSE: 2.0 - 3.0 Includes: PROPHYLAXIS for venous thrombosis, systemic embolization; TREATMENT for venous thrombosis and/or pulmonary embolus.HIGH RISK: Target INR is 2.5-3.5 for patients with mechanical heart valves.CALCIUM, [id number] 04:45:52 Test Item Value Reference Range Interpretation Comments CALCIUM IONIZED (BEAKER) (test 1.16 mmol/L 1.12-1.27 code = 698) PH, BLOOD (BEAKER) (test code = 7.40 1810) CBC W/PLT COUNT & AUTO [id number] 04:40:03 Test Item Value Reference Range Interpretation Comments WHITE BLOOD CELL COUNT (BEAKER) 7.6 K/ L 3.5-10.5 (test code = 775) RED BLOOD CELL COUNT (BEAKER) 2.52 M/ L 3.93-5.22 L (test code = 761) HEMOGLOBIN (BEAKER) (test code = 7.0 GM/DL 11.2-15.7 L 410) HEMATOCRIT (BEAKER) (test code = 23.1 % 34.1-44.9 L 411) MEAN CORPUSCULAR VOLUME (BEAKER) 92 fL 79-95 (test code = 753) MEAN CORPUSCULAR HEMOGLOBIN 27.8 pg 25.6-32.2 (BEAKER) (test code = 751) MEAN CORPUSCULAR HEMOGLOBIN CONC 30.3 GM/DL 32.2-35.5 L (BEAKER) (test code = 752) RED CELL DISTRIBUTION WIDTH 17.8 % 11.7-14.4 H (BEAKER) (test code = 412) PLATELET COUNT (BEAKER) (test 328 K/CU MM 150-450 code = 756) MEAN PLATELET VOLUME (BEAKER) 10.5 fL 9.4-12.3 (test code = 754) NUCLEATED RED BLOOD CELLS 0 /100 WBC 0-0 (BEAKER) (test code = 413) NEUTROPHILS RELATIVE PERCENT 80 % (BEAKER) (test code = 429) LYMPHOCYTES RELATIVE PERCENT 9 % (BEAKER) (test code = 430) MONOCYTES RELATIVE PERCENT 9 % (BEAKER) (test code = 431) EOSINOPHILS RELATIVE PERCENT 0 % (BEAKER) (test code = 432) BASOPHILS RELATIVE PERCENT 0 % (BEAKER) (test code = 437) NEUTROPHILS ABSOLUTE COUNT 6.11 K/ L 1.56-6.13 (BEAKER) (test code = 670) LYMPHOCYTES ABSOLUTE COUNT 0.70 K/ L 1.18-3.74 L (BEAKER) (test code = 414) MONOCYTES ABSOLUTE COUNT (BEAKER) 0.70 K/ L 0.24-0.36 H (test code = 415) EOSINOPHILS ABSOLUTE COUNT 0.02 K/ L 0.04-0.36 L (BEAKER) (test code = 416) BASOPHILS ABSOLUTE COUNT (BEAKER) 0.00 K/ L 0.01-0.08 L (test code = 417) IMMATURE GRANULOCYTES-RELATIVE 1.20 % 0.00-1.00 H PERCENT (BEAKER) (test code = 2801) POCT-GLUCOSE [id number] 20:56:39 Test Item Value Reference Range Interpretation Comments POC-GLUCOSE METER 107 mg/dL 70-110 : TESTED A T [facility] 6720 (BEAKER) (test code = ROZ Gutiérrez [facility], 1538) [address]: Security Patrol Officer/Techni waylon ID = [id number] for An Cash harrington TISSUE [id number] 16:35:03Surgical Pathology Report Case: [id number] Authorizing Provider: Bernarda Adorno MD Collected: 12/31/2022 03:43 PM Ordering Location: [facility] PERIOPERATIVE Received: 01/03/2023 11:05 AM SERVICES Pathologist: Kael Lofton MD Specimens: A) - Duodenum, Duodenum -- Blue stitch marked distal end B) - Duodenum, Duodenum -- Blue stitch marked distal end C) - Ileum, Ilium -- Blue stitch marked distal end D) - Ileum, Ilium -- Blue stitch marked distal end E) - colon, Transverse colon -- Blue stitchmarked distal end A. DUODENUM, SEGMENTAL RESECTION: - ACUTE DUODENITIS WITH ULCERATION, NECROSIS ANDCHANGES CONSISTENT WITH PERFORATION (SEE COMMENT) - INFLAMMATION EXTENDS TO MARGINS - NEGATIVE FOR MALIGNANCYB. DUODENUM, ADDITIONAL SEGMENTAL RESECTION: - ACUTE DUODENITIS WITH ULCERATION, NECROSIS AND CHANGES CONSISTENT WITH PERFORATION (SEE COMMENT) - INFLAMMATION EXTENDS TO MARGINS - NEGATIVE FOR MALIGNANCYC. TERMINAL ILEUM, SEGMENTAL RESECTION: - ACUTE ILEITIS WITH ULCERATION, NECROSIS AND CHANGES CONSISTENT WITH PERFORATION (SEE COMMENT) - INFLAMMATION EXTENDS TO MARGINS - NEGATIVE FOR MALIGNANCYD. TERMINAL ILEUM, ADDITIONAL SEGMENTAL RESECTION: - ACUTE ILEITIS WITH ULCERATION, NECROSIS AND CH ANGES CONSISTENT WITH PERFORATION (SEE COMMENT) - PATCHY INFLAMMATION AT MARGINS - NEGATIVE FOR MALIGNANCYE. TRANSVERSE COLON, SEGMENTAL RESECTION: - ACUTE COLITIS WITH ULCERATION, NECROSIS AND CHANGESCONSISTENT WITH PERFORATION (SEE COMMENT) - PATCHY INFLAMMATION AT MARGINS - NEGATIVE FOR MALIGNANCYSigning Pathologist Direct Phone Line: [phone] signed by Kael Lofton MD on 01/17/2023 at 4:35 PMFew microthrombi and lamina propria hyalinization are seen in the transverse colon. The remaining specimens are devoid of thrombi, except for a rare microthrombus in the duodenum.The mesentery is extensively sampled, which is unremarkable. Fungal yeast forms and rare pseudohyphae morphologically consistent with Negin species are present to all the specimens. Findings are nonspecific. Differential includes ischemic colitis, infectious colitis or a combination of both. Clinical and radiologic correlation is recommended.IDC: Dr. Kristina Garcia reviewed selected slides and concurswith the above assessment.[id number] y.o. female with presenting with AIHA crisis, acute kidney injury, chronic abdominal pain, and multiple co-morbidities developed septic shock due to candidemia and infectious colitis. Developed pneumoperitoneum after multiple small bowel perforations.A. DuodenumSpecimen A is received in formalin labeled with the patient's name, accession number, "duodenum-blue stitch ordoñez distal end" is an oriented segment of duodenum (4.0 in length by 2.8 cm in diameter) with a blue stitch designating the stapled distal margin, an unstitched stapled proximal margin, and up to 1.0 cm attached siddiqi-yellow mesentery. The serosal surface is remarkable for a transmural defect (1.0 x 0.9 cm) located 1.5 cm from the distal margin and 1.5 cm from the proximal margin.The stapledends are removed and the duodenum is opened to reveal siddiqi-pink, rugated mucosa with no grossly identifiable lesions. Admitting Supervisor sections are submitted in A1-A5.Section code:A1: Distal resection margin, en faceA2: Proximal resection margin, en faceA3-A4: Bowel, to include transmural defect (inked blue)A5: Uninvolved bowelA6-A7: Mesenteric fatNote: After initial microscopic review, additional patient intake representative sections are submitted in A6-A7 on 01/12/2023.B. DuodenumReceived in formalin labeled the patient's name, accession number, "duodenum-blue stitch ordoñez distal end" is an oriented segment of duod enum (9.5 cm in length by 2.1 cm in diameter) with a blue stitch designating the stapled distal margin, and an stitched stapled proximal margin, and up to 1.7 cm attached siddiqi-yellow mesentery. The serosal surface is siddiqi-pink, glistening, and exhibits a focal dusky purple-brown hemorrhagic area (2.5 x 2.1 cm) surrounded by scant pale yellow exudate, 5.0 cm from the distal margin and 2.7 cm from the proximal margin.The stapled ends are removed and the duodenum is opened to reveal siddiqi-pink smooth, flattened mucosa with up to 50% loss of mucosal folds. No gross lesions are seen. Admitting Supervisor sectionsare submitted in B1-B5.Section codeB1: Distal resection marginB2: Proximal resection marginB3-B4: Bowel, to include hemorrhagic areaB5: Uninvolved bowelB6-B9: Mesenteric fatNote: After initial microscopic review, additional patient intake representative sections are submitted in B6-B9 on 01/12/2023.C. IleumReceived in formalin labeled patient's name, accession number, "ileum-blue stitch ordoñez distal end" is a segment of oriented ileum (3.5 cm in length by 2.1 cm in diameter) with designated blue sutured stapled distal margin, and unstitched stapled proximal margin, and up to 1.2 cm attached siddiqi-yellow mesentery. The serosal surface is siddiqi-pink, glistening and exhibits a focal purple-brown dusky, hemorrhagic area (2.0 x 2.0 cm) marked with black sutures and surrounded by scant pale yellow exudate. The hemorrhagicarea abuts the distal resection margin and the underlying mesentery.The stapled ends are removed andthe ileum is opened to reveal a focal area of dark green, dusky, necrotic and flattened mucosa corresponding to the black sutured serosa. The remaining mucosa is siddiqi-pink and hemorrhagic. No gross lesions are seen.Admitting Supervisor sections are submitted in C1-C5.Section code:C1: Distal resection margin,en faceC2: Proximal resection margin, en faceC3-C4: Ileum, to include dusky mucosaC5: Uninvolved ileumC6-C7: Mesenteric fatNote: After initial microscopic review, additional patient intake representative sections aresubmitted in C6-C7 on 01/12/2023.D. IleumReceived in formalin labeled with the patient's name, accessi on number, "ileum-blue stitch ordoñez distal end" is as segment of oriented ileum (3.2 cm in length by2.2 cm in diameter) with a blue stitch designating the stapled distal margin, and a stitched stapledproximal margin, and up to 1.5 cm attached siddiqi-yellow mesentery. The serosal surface is siddiqi, glistening, and exhibits a focal purple-brown, hemorrhagic, dusky area (1.1 x 0.7 cm) marked with black sutures and surrounded by pale yellow exudate. The hemorrhagic area is 1.1 cm from the distal resection margin and 1.6 cm from the proximal resection marginThe staple lines are removed and the ileum is opened to reveal a focal area of hemorrhagic flattened mucosa corresponding to the black sutured serosa. The remaining mucosa is siddiqi-pink and flattened with up to 80% loss of mucosal folds. No gross lesionsare seen.Admitting Supervisor sections are submitted in D1-D4.Section code:D1: Distal resection margin, enfaceD2: Proximal resection margin, en faceD3: Ileum, to include hemorrhagic mucosaD4: Uninvolved ileumD5- D6: Mesenteric fatNote: After initial microscopic review, additional patient intake representative sections aresubmitted in D5-D6 on 01/12/2023.E. colonReceived in formalin labeled with the patient's name, accession number, "transverse colon- blue stitch ordoñez distal end" is an oriented segment of transverse colon (11.7 cm in length by 2.0 cm in diameter) with a blue stitch designating the stapled distal resection margin, and a stitched stapled proximal resection margin, and up to 2.3 cm attached siddiqi-yellow mesentery. There is a focal hemorrhagic, dusky area (6.0 x 1.0 cm) marked with multiple black sutures and surrounded by pale yellow exudate on the serosal surface. The hemorrhagic area is 4.3 cm from the distal resection margin and 1.0 cm from the proximal resection margin.The stapled ends are removed andthe transverse colon is opened to reveal focal area of dark green, necrotic, dusky hemorrhagic mucosa corresponding to the black sutured area on the serosa. The remaining uninvolved mucosa is siddiqi-pink and rugated. No gross lesions are seen.Admitting Supervisor sections are submitted in E1- E9.Section code:E1: Distal resection margin, en faceE2-E3: Proximal resection margin, en faceE4-E8: Transverse colon, to include dusky mucosaE9: Uninvolved transverse hajbcT57-W30: Mesenteric fatNote: After initial microscopic review, additional patient intake representative sections are submitted in E10-E14 on 01/12/2023.IRINEO Chaparro StudentPerformedThe interpretation of this case included the use of immunohistochemistry or special stains.Control Slides Examined: In-house known positive controls were evaluated along with the testtissue. These control slides run alongside of the patients sample show appropriate staining. Internal positive and negative controls when available are evaluated Immunohistochemistry technical testing was performed at [facility]ology Laboratory where it was developed and its performance characteristics were determined. It has not been cleared or approved by the U.S. Food and Drug Administration. The FDA has determined that such clearance or approval is not necessary. The test is used for clinical purposes. It should not be regarded as investigational or for research. This laboratory is certified under the Clinical Laboratory Improvement Amendments of 1988 (CLIA-88) as qualified to perform high complexity clinical laboratory testing.POCT-GLUCOSE [id number] 15:48:42 Test Item Value Reference Range Interpretation Comments POC-GLUCOSE METER 96 mg/dL 70-110 : TESTED A T [facility] 6720 (SANDRAEARL) (test code = [place], 1538) [address]: Security Patrol Officer/Techni waylon ID = [id number] for Yovanny Keating MISCELLANEOUS LAB [id number] 13:48:21 Test Item Value Reference Range Interpretation Comments SCAN RESULT (test code = see scanned report [id number]) see scanned reportPOCT-GLUCOSE [id number] 11:25:07 Test Item Value Reference Range Interpretation Comments POC-GLUCOSE METER 91 mg/dL 70-110 : TESTED A T [facility] 6720 (BEAKER) (test code = ROZ Gutiérrez [place], 1538) [address]: Security Patrol Officer/Techni waylon ID = [id number] for Yovanny Keating POCT-GLUCOSE [id number] 07:40:34 Test Item Value Reference Range Interpretation Comments POC-GLUCOSE METER 83 mg/dL 70-110 : TESTED A T [facility] 6720 (BEAKER) (test code = [facility], 1538) 23674: Security Patrol Officer/Techni waylon ID = [id number] for Yovanny Keating [id number] 06:37:21 Test Item Value Reference Range Interpretation Comments PHOSPHORUS (BEAKER) (test code = 2.2 mg/dL 2.3-4.7 L 604) Security Patrol Officer ID - [id number] 06:37:20 Test Item Value Reference Range Interpretation Comments MAGNESIUM (BEAKER) (test code = 1.7 mg/dL 1.6-2.6 627) Security Patrol Officer ID - MARIOCOMPREHENSIVE METABOLIC [id number] 06:37:19 Test Item Value Reference Range Interpretation Comments TOTAL PROTEIN 4.9 gm/dL 6.0-8.3 L (BEAKER) (test code = 770) ALBUMIN (BEAKER) 2.8 g/dL 3.5-5.0 L (test code = 1145) ALKALINE 264 U/L 40-150 H PHOSPHATASE (BEAKER) (test code = 346) BILIRUBIN TOTAL 0.9 mg/dL 0.2-1.2 (BEAKER) (test code = 377) SODIUM (BEAKER) 135 meq/L 136-145 L (test code = 381) POTASSIUM (BEAKER) 3.7 meq/L 3.5-5.1 (test code = 379) CHLORIDE (BEAKER) 98 meq/L 98-107 (test code = 382) CO2 (BEAKER) (test 28 meq/L 22-29 code = 355) BLOOD UREA 23 mg/dL 7-21 H NITROGEN (BEAKER) (test code = 354) CREATININE 1.72 mg/dL 0.57-1.25 H (BEAKER) (test code = 358) GLUCOSE RANDOM 71 mg/dL 70-105 (BEAKER) (test code = 652) CALCIUM (BEAKER) 8.7 mg/dL 8.4-10.2 (test code = 697) AST (SGOT) 20 U/L 5-34 (BEAKER) (test code = 353) ALT (SGPT) 42 U/L 6-55 (BEAKER) (test code = 347) EGFR (BEAKER) 36 Interpretatio n of eGFR (test code = [...] not appl icable for dialysis patien ts Security Patrol Officer ID - MARIOPT/[id number] 06:08:22 Test Item Value Reference Range Interpretation Comments PROTIME (BEAKER) (test code = 15.3 seconds 11.9-14.2 H 759) INR (BEAKER) (test code = 370) 1.29 <=5.90 PARTIAL THROMBOPLASTIN TIME 46.5 seconds 22.5-36.0 H (BEAKER) (test code = 760) RECOMMENDED COUMADIN/WARFARIN INR THERAPY RANGESSTANDARD DOSE: 2.0 - 3.0 Includes: PROPHYLAXIS for venous thrombosis, systemic embolization; TREATMENT for venous thrombosis and/or pulmonary embolus.HIGH RISK: Target INR is 2.5-3.5 for patients with mechanical heart valves.CBC (HEMOGRAM ONLY)2023-01-17 05:59:28 Test Item Value Reference Range Interpretation Comments WHITE BLOOD CELL COUNT (BEAKER) 7.9 K/ L 3.5-10.5 (test code = 775) RED BLOOD CELL COUNT (BEAKER) 2.64 M/ L 3.93-5.22 L (test code = 761) HEMOGLOBIN (BEAKER) (test code = 7.3 GM/DL 11.2-15.7 L 410) HEMATOCRIT (BEAKER) (test code = 23.8 % 34.1-44.9 L 411) MEAN CORPUSCULAR VOLUME (BEAKER) 90 fL 79-95 (test code = 753) MEAN CORPUSCULAR HEMOGLOBIN 27.7 pg 25.6-32.2 (BEAKER) (test code = 751) MEAN CORPUSCULAR HEMOGLOBIN CONC 30.7 GM/DL 32.2-35.5 L (BEAKER) (test code = 752) RED CELL DISTRIBUTION WIDTH 17.8 % 11.7-14.4 H (BEAKER) (test code = 412) PLATELET COUNT (BEAKER) (test 313 K/CU MM 150-450 code = 756) MEAN PLATELET VOLUME (BEAKER) 10.8 fL 9.4-12.3 (test code = 754) NUCLEATED RED BLOOD CELLS 0 /100 WBC 0-0 (BEAKER) (test code = 413) POCT-GLUCOSE [id number] 21:02:20 Test Item Value Reference Range Interpretation Comments POC-GLUCOSE METER 125 mg/dL 70-110 H : TESTED A T [facility] 6720 (BEAKER) (test code = [facility], 1538) [address]: Security Patrol Officer/Techni waylon ID = [id number] for An Cash harrington POCT-GLUCOSE [id number] 16:04:04 Test Item Value Reference Range Interpretation Comments POC-GLUCOSE METER 111 mg/dL 70-110 H : TESTED A T [facility] 6720 (BEAKER) (test code = [facility], 1538) 18577: Security Patrol Officer/Techni waylon ID = [id number] for Re hami, Yovanny POCT-GLUCOSE [id number] 11:39:27 Test Item Value Reference Range Interpretation Comments POC-GLUCOSE METER 105 mg/dL 70-110 : TESTED A T [facility] 6720 (BEAKER) (test code = [facility], 1538) 34465: Security Patrol Officer/Techni waylon ID = [id number] for Re hami, Yovanny RAD, CHEST, 1 VIEW, NON [id number] 09:07:00Reason for exam:->Post-opShould this be performed at the bedside?->Yes [facility] : 1975 Sex: FFINAL REPORT AP view of the chest dated 01/16/2023 COMPARISON: January 13, 2023 CLINICAL INFORMATION: Post-op Comment: Heart is in the upper limits of normal in size. Pulmonary vasculature is unremarkable. Opacities are seen in both lower lobes suggestive of subsegmental atelectasisor pneumonia. The rest of the lungs are clear. No pleural effusion is present. Impression: Bibasilar subsegmental atelectasis versus pneumonia. Signed: Tray Zambrano Verified Date/Time: 01/16/2023 09:07:06 Reading Location: [place] [address] CT Body Reading Room POCT- GLUCOSE [id number] 07:37:34 Test Item Value Reference Range Interpretation Comments POC-GLUCOSE METER 100 mg/dL 70-110 : TESTED A T [facility] 6720 (BEAKER) (test code = ROZ Gutiérrez [place], 1538) [address]: Security Patrol Officer/Techni waylon ID = [id number] for Yovanny Cox [id number] 07:09:03 Test Item Value Reference Range Interpretation Comments PHOSPHORUS (BEAKER) (test code = 1.9 mg/dL 2.3-4.7 L 604) Security Patrol Officer ID - NEIL [id number] 07:09:02 Test Item Value Reference Range Interpretation Comments MAGNESIUM (BEAKER) (test code = 1.7 mg/dL 1.6-2.6 627) Security Patrol Officer ID - NEIL GCOMPREHENSIVE METABOLIC [id number] 07:09:01 Test Item Value Reference Range Interpretation Comments TOTAL PROTEIN 5.1 gm/dL 6.0-8.3 L (BEAKER) (test code = 770) ALBUMIN (BEAKER) 3.0 g/dL 3.5-5.0 L (test code = 1145) ALKALINE 277 U/L 40-150 H PHOSPHATASE (BEAKER) (test code = 346) BILIRUBIN TOTAL 1.0 mg/dL 0.2-1.2 (BEAKER) (test code = 377) SODIUM (BEAKER) 138 meq/L 136-145 (test code = 381) POTASSIUM (BEAKER) 3.4 meq/L 3.5-5.1 L (test code = 379) CHLORIDE (BEAKER) 101 meq/L 98-107 (test code = 382) CO2 (BEAKER) (test 28 meq/L 22-29 code = 355) BLOOD UREA 14 mg/dL 7-21 NITROGEN (BEAKER) (test code = 354) CREATININE 1.31 mg/dL 0.57-1.25 H (BEAKER) (test code = 358) GLUCOSE RANDOM 91 mg/dL 70-105 (BEAKER) (test code = 652) CALCIUM (BEAKER) 8.8 mg/dL 8.4-10.2 (test code = 697) AST (SGOT) 23 U/L 5-34 (BEAKER) (test code = 353) ALT (SGPT) 49 U/L 6-55 (BEAKER) (test code = 347) EGFR (BEAKER) 50 Interpretatio n of eGFR [...] not appl icable for dialysis patien ts Security Patrol Officer ID Jonathan TREJO [id number] 06:28:31 Test Item Value Reference Range Interpretation Comments PROTIME (BEAKER) (test code = 15.1 seconds 11.9-14.2 H 759) INR (BEAKER) (test code = 370) 1.26 <=5.90 PARTIAL THROMBOPLASTIN TIME 46.1 seconds 22.5-36.0 H (BEAKER) (test code = 760) RECOMMENDED COUMADIN/WARFARIN INR THERAPY RANGESSTANDARD DOSE: 2.0 - 3.0 Includes: PROPHYLAXIS for venous thrombosis, systemic embolization; TREATMENT for venous thrombosis and/or pulmonary embolus.HIGH RISK: Target INR is 2.5-3.5 for patients with mechanical heart valves.CBC (HEMOGRAM ONLY)2023-01-16 06:16:19 Test Item Value Reference Range Interpretation Comments WHITE BLOOD CELL COUNT (BEAKER) 8.6 K/ L 3.5-10.5 (test code = 775) RED BLOOD CELL COUNT (BEAKER) 2.77 M/ L 3.93-5.22 L (test code = 761) HEMOGLOBIN (BEAKER) (test code = 7.7 GM/DL 11.2-15.7 L 410) HEMATOCRIT (BEAKER) (test code = 25.5 % 34.1-44.9 L 411) MEAN CORPUSCULAR VOLUME (BEAKER) 92 fL 79-95 (test code = 753) MEAN CORPUSCULAR HEMOGLOBIN 27.8 pg 25.6-32.2 (BEAKER) (test code = 751) MEAN CORPUSCULAR HEMOGLOBIN CONC 30.2 GM/DL 32.2-35.5 L (BEAKER) (test code = 752) RED CELL DISTRIBUTION WIDTH 18.0 % 11.7-14.4 H (BEAKER) (test code = 412) PLATELET COUNT (BEAKER) (test 249 K/CU MM 150-450 code = 756) MEAN PLATELET VOLUME (BEAKER) 10.5 fL 9.4-12.3 (test code = 754) NUCLEATED RED BLOOD CELLS 0 /100 WBC 0-0 (BEAKER) (test code = 413) POCT-GLUCOSE [id number] 21:16:04 Test Item Value Reference Range Interpretation Comments POC-GLUCOSE METER 94 mg/dL 70-110 : TESTED A T [facility] 6720 (BEAKER) (test code = [facility], 1538) 75085: Security Patrol Officer/Techni waylon ID = [id number] for STAS ALONZO POCT-GLUCOSE [id number] 17:16:43 Test Item Value Reference Range Interpretation Comments POC-GLUCOSE METER 91 mg/dL 70-110 : TESTED A T [facility] 6720 (BEAKER) (test code = [facility], 1538) 33543: Security Patrol Officer/Techni waylon ID = [id number] for Nora Beard POCT-GLUCOSE [id number] 12:45:07 Test Item Value Reference Range Interpretation Comments POC-GLUCOSE METER 94 mg/dL 70-110 : TESTED A T [facility] 6720 (BEAKER) (test code = [facility], 1538) 51394: Security Patrol Officer/Techni waylon ID = [id number] for CHARLEY CHICAS POCT-GLUCOSE [id number] 08:14:13 Test Item Value Reference Range Interpretation Comments POC-GLUCOSE METER 77 mg/dL 70-110 : TESTED A T [facility] 6720 (BEAKER) (test code = [facility], 1538) 71704: Security Patrol Officer/Techni waylon ID = [id number] for CHARLEY CHICAS CALCIUM, [id number] 07:39:11 Test Item Value Reference Range Interpretation Comments CALCIUM IONIZED (BEAKER) (test 1.14 mmol/L 1.12-1.27 code = 698) PH, BLOOD (BEAKER) (test code = 7.35 1810) COMPREHENSIVE METABOLIC [id number] 07:13:35 Test Item Value Reference Range Interpretation Comments TOTAL PROTEIN 4.9 gm/dL 6.0-8.3 L (BEAKER) (test code = 770) ALBUMIN (BEAKER) 2.9 g/dL 3.5-5.0 L (test code = 1145) ALKALINE 229 U/L 40-150 H PHOSPHATASE (BEAKER) (test code = 346) BILIRUBIN TOTAL 1.0 mg/dL 0.2-1.2 (BEAKER) (test code = 377) SODIUM (BEAKER) 133 meq/L 136-145 L (test code = 381) POTASSIUM (BEAKER) 4.3 meq/L 3.5-5.1 (test code = 379) CHLORIDE (BEAKER) 98 meq/L 98-107 (test code = 382) CO2 (BEAKER) (test 26 meq/L 22-29 code = 355) BLOOD UREA 27 mg/dL 7-21 H NITROGEN (BEAKER) (test code = 354) CREATININE 2.15 mg/dL 0.57-1.25 H (BEAKER) (test code = 358) GLUCOSE RANDOM 72 mg/dL 70-105 (BEAKER) (test code = 652) CALCIUM (BEAKER) 8.7 mg/dL 8.4-10.2 (test code = 697) AST (SGOT) 23 U/L 5-34 (BEAKER) (test code = 353) ALT (SGPT) 50 U/L 6-55 (BEAKER) (test code = 347) EGFR (BEAKER) 28 Interpretatio n of eGFR (test code = [...] not appl icable for dialysis patien ts Security Patrol Officer ID - [id number] 07:04:46 Test Item Value Reference Range Interpretation Comments PHOSPHORUS (BEAKER) (test code = 3.3 mg/dL 2.3-4.7 604) Security Patrol Officer ID - [id number] 07:04:45 Test Item Value Reference Range Interpretation Comments MAGNESIUM (BEAKER) (test code = 1.8 mg/dL 1.6-2.6 627) Security Patrol Officer ID - MARIOPT/[id number] 06:54:58 Test Item Value Reference Range Interpretation Comments PROTIME (BEAKER) (test code = 15.7 seconds 11.9-14.2 H 759) INR (BEAKER) (test code = 370) 1.34 <=5.90 PARTIAL THROMBOPLASTIN TIME 40.0 seconds 22.5-36.0 H (BEAKER) (test code = 760) RECOMMENDED COUMADIN/WARFARIN INR THERAPY RANGESSTANDARD DOSE: 2.0 - 3.0 Includes: PROPHYLAXIS for venous thrombosis, systemic embolization; TREATMENT for venous thrombosis and/or pulmonary embolus.HIGH RISK: Target INR is 2.5-3.5 for patients with mechanical heart valves.CBC W/PLT COUNT & AUTO [id number] 06:46:51 Test Item Value Reference Range Interpretation Comments WHITE BLOOD CELL COUNT (BEAKER) 7.0 K/ L 3.5-10.5 (test code = 775) RED BLOOD CELL COUNT (BEAKER) 2.56 M/ L 3.93-5.22 L (test code = 761) HEMOGLOBIN (BEAKER) (test code = 7.0 GM/DL 11.2-15.7 L 410) HEMATOCRIT (BEAKER) (test code = 23.6 % 34.1-44.9 L 411) MEAN CORPUSCULAR VOLUME (BEAKER) 92 fL 79-95 (test code = 753) MEAN CORPUSCULAR HEMOGLOBIN 27.3 pg 25.6-32.2 (BEAKER) (test code = 751) MEAN CORPUSCULAR HEMOGLOBIN CONC 29.7 GM/DL 32.2-35.5 L (BEAKER) (test code = 752) RED CELL DISTRIBUTION WIDTH 18.3 % 11.7-14.4 H (BEAKER) (test code = 412) PLATELET COUNT (BEAKER) (test 175 K/CU MM 150-450 code = 756) MEAN PLATELET VOLUME (BEAKER) 10.9 fL 9.4-12.3 (test code = 754) NUCLEATED RED BLOOD CELLS 0 /100 WBC 0-0 (BEAKER) (test code = 413) NEUTROPHILS RELATIVE PERCENT 79 % (BEAKER) (test code = 429) LYMPHOCYTES RELATIVE PERCENT 10 % (BEAKER) (test code = 430) MONOCYTES RELATIVE PERCENT 9 % (BEAKER) (test code = 431) EOSINOPHILS RELATIVE PERCENT 1 % (BEAKER) (test code = 432) BASOPHILS RELATIVE PERCENT 0 % (BEAKER) (test code = 437) NEUTROPHILS ABSOLUTE COUNT 5.55 K/ L 1.56-6.13 (BEAKER) (test code = 670) LYMPHOCYTES ABSOLUTE COUNT 0.72 K/ L 1.18-3.74 L (BEAKER) (test code = 414) MONOCYTES ABSOLUTE COUNT (BEAKER) 0.66 K/ L 0.24-0.36 H (test code = 415) EOSINOPHILS ABSOLUTE COUNT 0.04 K/ L 0.04-0.36 (BEAKER) (test code = 416) BASOPHILS ABSOLUTE COUNT (BEAKER) 0.01 K/ L 0.01-0.08 (test code = 417) IMMATURE GRANULOCYTES-RELATIVE 0.60 % 0.00-1.00 PERCENT (BEAKER) (test code = 2801) POCT-GLUCOSE [id number] 22:03:48 Test Item Value Reference Range Interpretation Comments POC-GLUCOSE METER 128 mg/dL 70-110 H : [facility] (test code = ROZ IBARRA, 1538) [address]: Security Patrol Officer/Techni waylon ID = [id number] for STAS BERG Tissue [id number] 19:56:31 Test Item Value Reference Range Interpretation Comments Case Report (test code Surgical Pathology = 104) Report Case: [id number] Authorizing Provider: Ricki Martinez MD Collected: 01/03/2023 09:45 AM Ordering Location: [facility] PERIOPERATIVE Received: 01/03/2023 04:44 PM SERVICES Pathologist: Sanjuanita Jarvis MD Specimens: A) - Jejunum, Jejunum No.1 B) - Jejunum, Jejunum No.2 C) - Jejunum, Jejunum No.3 D) - Ileum, Ileum No.1 DIAGNOSIS (test code = q1snjZUbXYKgf1zfDYGinLB 3220) uZzEwMzNcZnRuYmpcdWMxIH tccnRmMVxlcGljMTAyMDVcY J3yxTpnxIj4qXwfZNHtjhE7 iNUqOHecl1glPNQ2y2aqxpk yMWHkXBlcAs5odBLgaRmkLj MoUTKdBVc2xJ89TVValU4jl PBrTFn5UCOovHGsqrEpKhAw KQRknLIgmOL8EEOuLJ5gnwm nUNypIFaaSQBpfgN9EKMhtQ JlF8WyJIKuLX1mngyrIMS9B JcrGHCmXEY8JcRtWVTax3Ux bwo2GiImhZVoAXlzmOYxhqw mczIwIEEuIFNNQUxMIEJPV0 VMLCBKRUpVTlVNICMxLCBSR SQBV0LSI12jrSWeLLJbLjMd H49KLPqrAk8XUUjqFZDFB2N BIFdJVEggVUxDRVIsIENIUk 3EIBTgDE4JVLFZGWWIUZ0DD KKLRXYUL5MRWyVKDuQjF5UL RrDGYNOQO76kYXDurwt5KIF hRKZRU5CHFTrwUEQxpWFqMJ 3MS0WGWATGAMQJG1oXQATdr GFyXHBhciBCLiBTTUFMTCBC Y1fYKYgwWaSQTX0BBSZnIrk tObIRHDSUXL4AYPJcsia1JZ HlMEMLEQfPEOAYZ9OBIQ9FZ 80YVCUBVKBMAWISI6UMSIFL VMEUSrjQBGhGOcoIVK3QRJb BEcZTNeBcQ5HIAvVFLDISK0 4pQChCE4NMQBHatlq6VEYbX TDLMIPUZUZGRp4QPDCHW9ky YXJccGFyIEMuIFNNQUxMIEJ TU8HWRADFPToFNoJBLQXmFF MALYRQE7YHI17etFZnSGHpI eKhZ43MDTqqXg1VWSuuIJRZ Z3RMDWbJSOnbIJaTKBYyUBH VVt3CLWCeEE5BDGWOJDZQGZ 5VPMJYCTNSA0AEDsCJDqAiB 7ZYAvEXHHRAV19jTMGeeib3 DVRdWCRQH8TFEUsbXEWwsHV jMD7CY2RDXEVKCQQCZ4dOMX NccGFyXHBhciBELiBTTUFMT YTDT7oYALxwFWtOAZ2jMNHA D1VZQZxBNsvxRDAucNWvNK8 UOIESBMYGE0cDKHIXMOZEG1 CuN3oMVENBUMFNZfyeE6rLL 87BLeCJYxBORD0AUJINH78r MT3DB3BQX2cQHDONSEBINwG OVUxBVElPTiBccGFyXHRhYi WmWMtHR9DLJRCdalo4LVFzV VSLWARFKTKGBx4AJYKJC0cc SLK4x1rcmIAeFZLdkUBdXLG wMFxhbnNpXGRlZmxhbmcxMD VgYTT1reVwBVThAFvgQFNyN JegHs1tzEPgtKcvCgOwUYEf q7avhqIDeqegqYm4k4tpKES lQhN4xLVoRMqnW2gkgaNlkI UaLSZtDSu5hQ51VFEclU2zw QXgRPjlsmCzSkV9DItmUJTx OaT6MFNtqPLpFUCgW1xwPEJ sPZjwXBJsEUwddXDkODM4aY uci9H0dXWxpMCqhJnnFwYcU uFaFiDWf0OpKWy9dSoaR7Ow TNYoLlX5nSVwKGKrKXvsLQK mDUIkswI4bY46EDzmyaX1pD Dep3Fuw65tn455gV4wfQFrC ZK9FWNnIFQltWFoBWHaFXZ8 XHIhhHJfQ9caZHRaUU8ptpf tEEvaPXoyMTIwrBP2TWLhiU DlA0JsWLNvUNpnCWBmjdm6B fYzKl0zkZDjxFxjRPtix8qz s4dhcHCkUgy4YDNxUiQsXww jPTxhh5Wyy6wdCGPfru8qXZ S8sKLjrLkym4V3rZPlGWKbz TGcJSMpCA4igWQzOKHqbG8w cmxjXHBnYnJkcmhlYWRccGd mskVsWi5ekLzjLLW3QUcwG5 ndzI3hYhY4NOppH4ondN5jG Zw7FTpvVBJrwFH4rzC0EYYl qQErV1DipD7lMZOiLL8cjhy 1y3reMIE6XSqfSIRzDyD2nm R3KQGigDFzQDHgdFmqTGtad 600SFP4HxTrRPEjp3RtO4Vv xDecI20whRphC30rXEDduTh ggK5ouVieoZ0rJfZiMoStXG ujvSqhNR1fSIJoG7pagCKjP CJjOUBeV1fxUwQsqQ0rnHim HNaekbZdXYNdTvl4QMNcfHL bITEcBpc7OJWyOZHbV98wlv ouXZW8hR4aj4fxj4WtTIovI CQ2DNHbu11oPUsdeuX1XSmv Rx29ZNzyPCY0WZtiFXL3fN= = CPT Code(s) (test code d4ftkPVaECQqvPFeTYPdPAz = 3357) pteOvNDHquVYjD8VgoktyTP taTN7zMC5rbNibqKRvzFDbB HExNaGys5lbd417rCWpi7qs LZNSxfhqnIl8oPxsB85bc4K 4PoouV76ueKJjGKB7TBNdJL TwmOMvGTYpZGL8TNGpwUHnX 6bjORUrBG5viliwGIczZSqp UFIdtRP1OCSnrYSuE8ZoSKR oCCbqKRIrezw1RqDtJr7svN VyeTcyMFxwYXJkXHBsYWluX GZzMjAgODgzMDcgWDRccGFy fQ== CLINICAL HISTORY (test b7ddmTRmHSPzlGLfNVByWUe code = 3356) bamXqPATjiBDkZ4YnthwbAQ qaIF7aIE2noSqqvTSyvEBjT AQkFuQlv9lbg245gTZia4oj QKBCsbufaSg5uZjcJ30hj5Q 9RbknY5qbEFOhXIkyTBQzLB bszFKvDQj3VXRrvQOhwgCrC pJfXNKkjPGvfFM2LTGzWY0r tmroJLbiRFliLCEwrmD6NQK rwNGzP9HgCTYpDU7kdfjgAU Y6NMeoVCMoYJQ7CoNqPDGpc 6Yihjr5TaNyxSAoHWgtgQBv eIqnpI3mUkYdJBkwTeWhGS0 muM0roF75bvlkEBXgwa2= GROSS DESCRIPTION j8rezGPrNNPsjSINEDGoIMD (test code = cQM1dlJfycOg9pDahHFRbex 2467901875) C0zKAsAAxer5yzBTE4v9gys uLTXyodRWEvAE7cMUohVGKr XK6aMwPeMESbDvUbEPXacUW lusZxUvOxUXSrvFOpsDN2PA FrWX9rimdbVNkeDOfvRGIwu nY7OIVynULxD4KeFMBlGR1z mpxzJXZ4FHDYJcfoRe3jaWY ibHtcZjFcZmNoYXJzZXQwXG TehFncSVImJZi3kC3XKklnL WG4FAPVXgqpSxwkmLuid1Pl dCBcXHNnIFxcaWQgNTEwMDA oDEucBvEFTgCcZhM4IWf9DY yaLbI5LPs1XSLAJMJyPSI9A UzzPTH5DBq6BVHaBM8gBOpg mGXsZQljSkvqUAnkP197HUw zEFBcA6XzM7JbCWztTxIoGV wzYKCxBYWtUNboJSQlW7HTU KEmZDs1CIK3QLGaSIy2LRar Q5WDRNFcCXJpGcTsDqM2VnV 8LCw1QOYEPk8vHlO1BoGbQJ C2JVD0XYA8OTsviKRbHHzkn 6IlDtHpOMVaEJlclxL7JUJu yeEyLPslwAkmxN6oYgXeBcC TVyETPMj4fvRoBKJekqAFMx glQELlMG8EUNFgEUbfHYVeQ pDpdVFvO1rzYVFgP92iz1TG t4NzJA3SNEe8gsSspxxnzG3 wXHJpbjAgDQpcZnMyMCBSZW SizHNdHSOfyuFlv3WwEUkhq iBsYWJlbGVkIHdpdGggdGhl MGGtxIkqdxSfalXaYK8pYIT hJ4Uyy8Vhf10xkwEgOyLzDG KcRWMdsiQeeQ98lZWvGWDiv FZzWS5xtM1ybksrdvHxPVvb CIPqUJFjnNNzlfPuYS5gcKt iPnyaJl16WOBlWLlxDIDmBW 4igEXvVQFhZ29htqScp6Pkq 17pjEifXl77DAwhh8j5bHA8 bYS0xySmVaCpL15yp4LiRYP 8GKLiGJTrxVUgPF12OAFiMg BsHNXgGCGJmQZte9Sah2ShY EolLXEbpx1hwB0oCSFrhSWo uaZdoBWkCP2hFVJrc3RmIWz bTGGhWKRqwGDps4QjET6coG 08CA7rLCLzjGOyDM59LGdak RbuzjIydMYxoW7dkXYpPYq0 MPF2UN2sUURkKSBuqVSfhU9 xvbKtynBkvJDvLQTojJ6sxr Z1ANIoPXExyPXeVSWnvqzdG UM6jQedoVU6c4JsMD86L63x BIO2rSWnBHUhFOVqwEapMS9 0bHkgZmxhdHRlbmVkIGZvbG AdDnInHt0uHFdyQ6EkkOOkx AVxcL0ayuAycfYiMKIch9Dd dRhkxtElTTHaQErfZO86cEH jMDEsXWODmZKng6UaiSSeJX TpkXPmdiN0ySX2nnQiIeGcI 99oaTebM2dsMJGVSHC7eB7a zN1wMJ4bGHIjCAWaMIWrvkT lcmljIGZhdCByZXZlYWxzIG EgdGFuLXllbGxvdyBmaWJyb 4MatWC4KRKik7RdiRk7PEIo b5Z2aRNspIszENAbuDKqr5Q aIhHkTVG7lVI0GZbpEZDptl 0dOVUiWcU1iCYrpOVaBqNbN nTddjRxPV46UNDooxOdw5Df fGurzvNgBZXdUTL1Wt5ioAW pDPMnyrUwu1qnt4pxWjalQU JwNEojcZKcJA3CL6OefNkvn hDqv9KwKLEavvJNReObXpON qOXobDJzn8otgPRkWCSedT2 hXDVqGCMjM6HdJMYgdH1nYQ MbUhb3GGgmKKVkATdNXk7NF RgcJ45ynJokPi52WTnzN3Tt eUIqzUUjYDE1kS9of3qqOUR sPPcte0LfEZvjhVtsHAFsVm YtJLuBLBrwAHFpFQ70DWFnR yBmYXQNClxlcGljTmVzdERv JnP9BGSokTQwKTL0AB0tiMc bKIWzCUz3FAvdWBRaT5DvY9 QgXFxzZyBcXGlkIDUxMDAyI KsfADUjR6VMSLYyKYk1UCW7 NYUdOPk4ICrrL9HPFJXyVPK eTmDkOdB5ChM4YTb5HLDIEk 4fDyS9BjYnSOC7YSV5JAZ9J KphaZFkSVbrc7PlAuZrZBDy MOrhalY9ZDOxivPtn5CuJSR cYDNtD2plGjDmUBBRBangrg SxRGGbNVjimlNlvA9ujWRgJ J7THGLkpnCgJJhxqPiqrO0k tUBiD7tgJrZxThnxtWhoAxF zdERvYzEgDQpcbHRycGFyXG xpbjBccmluMFxzYjMwXGVwa KJXc9CzMZLHAinpelHlNAHd Q0DjvwLyCIchFUGdyg9azZl uXZqdDzUuYVLin7c9wYR5aH WtsWM6gAWyeHncKE1yiIYqK WEvE6Oba2dohsFlvV3cBDJu QV1hVMVlRVx8wnAdCGBzKbV dprWwttH4bu7niBLmfTVpRK DbOK2tJSFpEYpmAMgayto9g AZonPWfGfMaG39riK8sXIqe dLP3XQIwq3VkdGApfLGaZxS evFZzoOLcu8qsiLD2dIHgZE VwIHRvIDIuNSBjbSBvZiBhd RQyS3eoMIJaXLRrqjTtrfyk JIEcrH5xMVYjQBCuPBAwb9W jmVBqaZZrTVSqybxrUVz0wM ZcHF6hBiuuj86nx9PvFBZsM CUjbQYslOY6ctNwHNDsUPRo LMGdhL15wyOow3NsJQJhNQN qhxHtnSRfoT35VRyoJVLdIE XhEyMupp8fcRG6bNPtrOSle HVkYXRlLiAgVGhlIHNwZWNp mCHuSWszTI5zND2oBTF3ldH iZYGcPScbVAU3OF4zeCcdpp tdIZM7iUieuZC9v6MvTY19P 45hKHE9iES6VDSvk8XfWBvv IJ4lgq8wqSR1prCdoSD0aEA pSYZoBv9aWVPxYNGEiiNhwA LslgT8GVFrKXAkq16hDN0oR HYcrmOlreS9mE2nmtMwoaWb NFOhqiUhfJV2XEAhTZOGfIE nu7IkzPWeABWxwSBpnvB0lG T9nwYeIzHbZ41jxUytY3oiV IMQMCT8yX0cpE3kAO6pTDLd LTKlMXKkvtDvmgvqzbK4SYU kwmJcMICnqt33EDaay6mzNq xbwm1dNQL3hVmhEl2lEIuvg ZR4TIAcfVsiyrj2TNWxY8M4 WRT8ixXvY8JliHqhuANbjgY gEKTnqHPng2IowMmjk10maV 6xMFYszZQrb1FqtHY9uYCcQ EQjU6Fha03qXJBjRMCmtQGz aER3FVBbIEHiWz4lqV85kje avZTeGJ7QUWLeLNsabVfgKG QcJVMRKgoxZCXiQYuYPWB3o I3kDJNkJCUolEXyKJ6BVmF8 ZFSuURzcCSDyb7XiZY1rohl kioNeRL7jKlSsVJhlUQXahd tlZCBibHVlXHBhciANCkIyL EGcYtDUuDXzkOXhi1ruwXDz ZR28pfBfCTOtC6Tck35tEAR hciANClxzYTMwXGVwaWNYc2 OgAENGReB5MrYJEGRdhaXzi nkNClxlcGljTmVzdERvYzB7 ZQYoaLZeNTK2CK6ohOjhQLT qOFe9OMduCMEwZ3JxU6ItKZ xzZyBcXGlkIDUxMDAyIFxcZ UZrY3XCANWzRQr4QKG3RUMo EUm5JTtyG6ZQZNRiZBGdFdW uZiJ7AaD1DLt4FRHHTi0iOv L1YmClEDT8NZD7NZB8AEtbn DHtPAqzw8LtNpEsJTNuXLnc seS5TFVrpoCgk6ViILSdQIO mM7puYkCgIVECIumuflJpEZ KkJIfkgqUfkJ4qlBCbCW6UE IQhhiEgAGrzbUshyC1hpVGl S6exOdAbLxvreQylZaPhjDE vYzEgDQpcbHRycGFyXGxpbj BccmluMFxzYjMwXGVwaWNYc 4HqRXZXWxiyqpOfSQUuX8Dq vlGhCZlhFBIadp2qrMlcSRc lLdKkTYWig3c7jMI3qLKfyQ U7nQXvwVokBP2opRNkEMUtN 4Brs8cpcxAjwH6lPDVnTJ0z MUOaITz4tlAaQYViCnTogdK irsC5ey1lnMLchIKbWKMzVS 2iVROrFJcaUBnpupa9bTOle DHjLaTkP51xxS3aAYnkhNM8 WHJog9VlnUQqvCAiLbKglIE mzYOwt3dmfIK7lRVxYKJuXA RvIDMuNSBjbSBvZiBhdHRhY 2hlZCBtZXNlbnRlcmljIGZh hH8sEYMzTJLtVKZef1VprHS bqOLvTNYavnegWKa2zHBhKT 1pYyBhbmQgZGlzcGxheXMgY HUmz7WirhL8ZHGbeN47hhLd q1DbXMPuVKPgzwVyoUGkcR1 3IGZpYnJvcHVydWxlbnQgZX g9YMH8UG4tZNDoXLPfwIScz F2cbrGfrmJaoMZoKTPkhB1u ycN9VGThRSRhjEQvMXBqvac rREK8nXorbYI8p1QoLF63P7 0hNRK6gAEjMD2sea3adHL5z pEgpCM6iZPoPDGaIf9hXFEj OCPSpcHwjEWidrX4EIZxQOU wx48wWH5tYEGiflRivpF6aP 3tpjTcfbAhJJMbzjCpuYU1P YLkPWXJnASxr0VmwPZbKBFo nVCnpyS3nPK7qwVrMoTaR34 yeCjoT6luGXRMUHS3rI2yfW 2cCX0oKISbYAVbYFTspaSze mljIGZhdCByZXZlYWxzIGEg wCNmZDflrOltchRnxHXxv2V yuAZ4KUXdu6NfjWa1QFRjh9 V1aYLipIlkKOHqrQAlb4ZuA kQaUNA3wPI3UVrvAVRjjg4v HPIcHcN0lGUnpCZrKtIuUjE aucKjUY29GHVeimJkb5UchG scznGiLSXrFDR2Di6fuBCqO ZWkbzDgl2uqj3kbSfqoBNKb FAzuo8VgHTJnqODFp0OyXH8 HXMSmlhIJIkVdT7Spw11kS6 0bWCfdFAPuAFnBXYmpP20bt JeyPm00QFqlpIKzK8fjnvGh odUsOGLvTFXuNNmae6JkDGT tfVCzhFZdEY4TEwThMpF3QP GuecKmYOdxx88gaTnoMs21H Txlr6EwrOkcyhDhrDCdLO4A KPIoEsAwKHFxG8ewTKKaDE2 AGiS2YA5bo5OzzBEtgK9EFU RypOEFEEF4JG3mKNotSQDdR 8UuG5GpihE2FNVpjcKEPhkc UggekLtzh2BiiAZyHMRmKLc caWQgNTEwMDIgXFxkYiBPVl QuRnP1AMd2UPnsDdP8PKh3V UQDRtLyXgNjMtD2QkJcNQWp NEu9ZWl8TPfZVhS3FJe3RRV 1XsEgAUW1TXbmCBd9ZUHwKK vveiThLRdeKubpEBkoS14ht GFyZFxzYjEwNVxlcGljWHNi SPH3NM0OYQZkIeWqLQ9xQTd oaJ4wsREbOX4MHASvcvMsID vnnPdrxS5goQXdL4fnNxHhD lxlcGljTmVzdERvYzEgDQpc bHRycGFyXGxpbjBccmluMFx pZxUiGFOndDAPe8UdKRHRYq vygoAhOMHiJ6CsokBfPHpuC RFhhm6fsBugKDqjNuLwLOXu r4g4oRD0sSSdwPL5kYOhxWv lOG2ouCKcOBQhG5Lsa9ehvg WfuP0tKDKgIX3cATZvaBE2h BHmUVGvaLSzKW1thL9jctkj bnRlZCwgMzcuMCBjbSBpbiB yYR7ajLujAovhWn4iVFUlZP taLWCyIR7uuAMhIYCmX97bl cPik8Wrw06ajVqvOq23TAxi h5t5eMO1gLC1wnOoErBbQ80 dr6QyRFK9BYOkMWLchZViAU 50ZXJpYyBmYXQsIGFuZCBhI WsnOdOntUDeapKlMJ7jjOfr RdxhWr7zVMNoGBjvSVKlMG1 cfCMiHLXyQ34rRWZgFMxjMC 37RL0cIYFkKLxoAKHlh4WwG FhzjAxlpYJepJ2mXN88YDHm UO7rCOB3cXUltSZfQR4kd4H syPXgsNScCoM7OQQjVQSqeN QvJA2zs2HycB5sWEPel5k6r EVisMk9eMJkGFNvlXQ7zkGr YXDrLAZjTTKgq28hEBRsr5Y wtLZlqC4eySYlVX0JZZMiRS xlcGljWHNiMCANClxwYXIgD LkXsUAgm1Pbc4LeEGwgGAY4 x0s9KAIzkp8wpM4cBKFkbSQ pvhEwiZEmAQ8fXBHlv2LnBB dzKCByt1TdfvTrAGFth8Kmx YRrBhSqXZmzmtTipYB9AMrq r0muZfnknf9rfFE8hAAodOX leHVkYXRlLiAgVGhlIHNwZW SfpVQuNOjuPJ4uML7dBRN4z pZzXQQgBXgyQPY0SN2ntVuj avWvc3LaoQf7RGMzySGoHN2 noF63vuJopMAos4QgyWpskR JovCTjxQD4wrDzs0CmYSdiq L2fKxemdQBfcvCsYXLbuROr BnHpRg4lJZzxD4YyrOOgfWP heZ9srmWcdsCzQXWsi2GuvU icfoUrANSgTUVizZTuS7ysh GVkLiAgVGhlIHdhbGwgbWVh q3KzJGCroOGdtR5dYA5lDAM kMYHfnCHvXvDvA6ZntXggcn urZfMkSoL6sTTifRQlNA67O DMzFhBpKIQrzbF2YWParyKm CJCbyq25TNcox4veDpyvhc5 gSHD6sTvcAq5mMAsvnAO6RB AzjDebgde9ETNfG9Q1SBR1o dKiE3TuxCldpAFhjrLgXSRo hZMyt5XifXhxd69lcX3hYRF quRTbn1DfoAA0yCBdJULpB1 Cmf81oSOOnIQRzlDCrdEM1I APfGLRsAl6zwS81ntvxeJEy IK7DPSFdivURYgmuylVic8O lXHBhciANClNtYWxsIGJvd2 TcMQllxzsfyxZsOXdjCE32G C8gtaazxbTxgL5vSDT2POXs GIIoFEL9l81eg5ryNkTArJA lXHBhciANClNtYWxsIGJvd2 LnAYLwx8Y8IVHrc5WzzBRlc JZfJPXqrG0qO2gcl5YjaME7 kePdawDphC2cy1HierxsPhg mK8yyjDOuQP5ELYNrolPVLc LzD9Cur56wO54jEMssIBGsE FdSIFfvDF0jB2XzNUGgW12m cmTwp30rgMfxQv12HEttdGB nJ6sregDnrmCqMYIbLHKpgl ZZYbBuIaJYhD0nrXGgEDMdH 68jobSvz23ikAesKj18CDrh xBKbJ8kzcaJlpbRoQFIcLBJ jaiOJRpOwQRK7NeTIacCvoR 9lf9PpYjIexSLyQDVnutFXH eH7NPU6AnEZj94rKBUkx6Df wLJxtVclZYFmOLnNJE2IBQR 2AAIlr0H1JZWzw8AdkVBxjB xwYXIgDQpEMTEtRDEyOiBNZ XNlbnRlcmljIGZhdFxwYXIg IDfwzRXmBV9UUVqfCCFcEEL ndWVsbGVzLCBQQSwgSFQgKE PTH9OlVPCidsEBUhpsGMBwL Xvkf8MqODvzuUbtOSIbMlTr DHxaZTQoR78ju8UOj1Kcy6y jsCrzk0GusFThDO63RLOpwQ YwUBD4MK2dkPlnVXKsEXwhp HLvXOPYRaacgcAiID2KqO== MICROSCOPIC p2ruzWMmRZGinTTnSGSxMMf DESCRIPTION (test code shbNxKDNwkUOfN7MnvtqtQE = 3371) qyEZ1qAV0ttVetkLFcuYBhM JXmSmSrj4vip980vHRcg9qc OXXAnjmadKi9mUbkO55jn4M 2SnnqH25ncKLaERT8KXAnBY RunTXqOFJuOXL1GBVjsYIzC 2zmOALmWY4sbdmcDPjeHSiz ZVBfmGU4LIGnzVGfB0ZuRMY wSHmeRDTafcw4ItPeFu5hlN VyeTcyMFxwYXJkXHBsYWluX PNfSaMjGD6ZEzTYAUKmg8Lm ZWQuIFxwYXJ9 Gross assessment was [facility]'s performed at ([facility], code = 2777) Department of Pathology, [address] [place] [id number], Technical component [facility] was performed at ([facility], code = 2778) Department of Pathology, [address] [place] [id number], Professional component [facility] was performed at ([facility], code = 2779) Department of Pathology, [address] [place] [address], [facility] [id number] 19:56:31Surgical Pathology Report Case: [id number] Authorizing Provider: Ricki Martinez MD Collected: 01/03/2023 09:45 AM Ordering Location: [facility] PERIOPERATIVE Received: 01/03/2023 04:44 PM SERVICES Pathologist: Sanjuanita Jarvis MD Specimens: A) - Jejunum, Jejunum No.1 B) - Jejunum, Jejunum No.2 C) - Jejunum, Jejunum No.3 D) - Ileum, Ileum No.1 A. SMALL BOWEL, JEJUNUM #1, RESECTION -SMALL BOWEL MUCOSA WITH ULCER, CHRONIC INFLAMMATION, NECROSIS AND GRANULATION TISSUE -ACUTE SEROSITISB. SMALL BOWEL, JEJUNUM #2, RESECTION -SMALL BOWEL MUCOSA WITH ULCER, CHRONIC INFLAMMATION AND GRANULATION TISSUE -ACUTE SEROSITISC. SMALL BOWEL, JEJUNUM #3, RESECTION -SMALL BOWEL MUCOSA WITH ULCER, CHRONIC INFLAMMATION, NECROSIS AND GRANULATION TISSUE -ACUTE SEROSITISD. SMALL BOWEL, ILEUM, RESECTION -SMALL BOWEL MUCOSA WITH ULCER, CHRONIC INFLAMMATION, NECROSIS AND GRANULATION TISSUE -ACUTE SEROSITIS Signing [employer] Phone Line: [phone] signed by Sanjuanita Jarvis MD on 01/14/2023 at 7:56 [id number]. JejunumReceived in formalin labeled with the patient's name, accession number and"jejunum #1" is an unoriented, 14.0 cm in length by 2.4 cm in diameter segment of small bowel with up to 2.5 cm of attached mesenteric fat. The serosa is siddiqi-pink, hyperemic and displays a a sparse amount of adherent yellow fibrinous exudate. The specimen is opened to reveal a siddiqi-pink erythematous muc mj with predominantly flattened folds. No discrete lesions or perforations are identified. The wallmeasures up to 0.2 cm thick. Sectioning of the mesenteric fat reveals a siddiqi-yellow fibrofatty, focally vascularized cut surface that is devoid of thrombi. Admitting Supervisor sections are submitted as follows:Section codeA1: Small bowel margins en face, 1 inked blueA2-A4: Small bowel central sectionsA5: Mesenteric fatB. JejunumReceived in formalin labeled with the patient's name, accession number and "jejunum #2" is an unoriented, 25.0 cm in length by 2.1 cm in diameter segment of small bowel with up to 2.5 cm of attached mesenteric fat. The serosa is siddiqi-pink, hyperemic, smooth and displays a sparse amount of adherent yellow-green fibrinopurulent exudate. The specimen is opened to reveal a siddiqi-pink, erythematous mucosa that displays normal to flattened folds. No discrete lesions or perforations are appreciated. The wall measures up to 0.2 cm thick. Sectioning of the mesentery reveals a siddiqi-yellow fibrofatty, focally vascularized cut surface that is devoid of thrombi. Admitting Supervisor sections are submitted as follows:Section codeB1: Small bowel margins en face, 1 inked blueB2-B3: Small bowel centralsectionsB4: MesenteryC. JejunumReceived in formalin labeled with the patient's name, accession number and "jejunum #3" is an unoriented, 20.0 cm in length by 2.4 cm in diameter segment of small bowel with up to 3.5 cm of attached mesenteric fat. The serosa is siddiqi-pink, hyperemic and displays a moderate amount of adherent yellow fibropurulent exudate. The specimen is opened to reveal a siddiqi-pink erythematous mucosa with normal to flattened folds. No discrete lesions or perforations are appreciated. The wall measures up to 0.2 cm thick. Sectioning of the mesenteric fat reveals a siddiqi-yellow fibrofatty,focally vascularized cut surface that is devoid of thrombi. Admitting Supervisor sections are submitted asfollows:Section codeC1: Small bowel margins en face, 1 inked blueC2-C4: Central small bowel sectionsC5: MesenteryD. IleumReceived in formalin labeled with the patient's name, accession number and "ileum #1" is an unoriented, 37.0 cm in length by 2.3 cm in diameter segment of small bowel with up to 2.5cm of attached mesenteric fat, and a 8.3 cm in length by 2.3 cm in diameter second segment of small bowel with up to 1.5 cm of attached mesenteric fat that is anastomosed with multiple sutures to the longer segment.The serosa is dusky siddiqi-pink, hyperemic and displays a sparse amount of adherent yellowfibropurulent exudate. The specimen is opened to reveal a siddiqi-pink focally erythematous mucosa that displays normal to flattened folds. No discrete lesions or perforations are appreciated. The wall measures up to 0.2 cm thick. Sectioning of the mesenteric fat reveals a siddiqi-yellow fibrofatty, focally vascularized cut surface that is devoid of thrombi. Admitting Supervisor sections are submitted as follows:Ink codeSmall bowel longer segment margin closest to anastomosis: BlueSmall bowel shorter segment margin closest to anastomosis: BlackSection codeD1: Longer segment small bowel margins en faceD2: Shortersegment small bowel margins en faceD3-D5: Anastomotic siteD6-D8: Longer segmentD9-D10: [place] daopmhqM74-A86: Mesenteric fatPilar IRINEO Gandhi HT (ASCP)A-D. Performed. [facility], Department of Pathology, [address] [place] [address], [facility], [address] [place] [address], [facility], [address] [place] [address], Tel ZGTG-GLUCOSE [id number] 17:03:24 Test Item Value Reference Range Interpretation Comments POC-GLUCOSE METER 141 mg/dL 70-110 H : TESTED A T [place] [facility] (Upside) (test code [facility], = 1538) [id number]: Security Patrol Officer/Techni waylon ID = [id number] for Alex Rodriguez POCT-GLUCOSE [id number] 12:23:16 Test Item Value Reference Range Interpretation Comments POC-GLUCOSE METER 119 mg/dL 70-110 H : TESTED A T [facility] 6720 (Upside) (test code [facility], = 1538) [id number]: Security Patrol Officer/Techni waylon ID = [id number] for Wils on, Lilliokalani POCT-GLUCOSE [id number] 08:45:29 Test Item Value Reference Range Interpretation Comments POC-GLUCOSE METER 83 mg/dL 70-110 : [facility] (test code [facility], [address]: = 1538) Security Patrol Officer/Techni waylon ID = [id number] for Wils on, Lilliokalani [id number] 06:26:00 Test Item Value Reference Range Interpretation Comments MAGNESIUM (BEAKER) (test code = 1.7 mg/dL 1.6-2.6 627) Security Patrol Officer ID - [id number] 06:26:00 Test Item Value Reference Range Interpretation Comments PHOSPHORUS (BEAKER) (test code = 2.9 mg/dL 2.3-4.7 604) Security Patrol Officer ID - marioCOMPREHENSIVE METABOLIC [id number] 06:25:59 Test Item Value Reference Range Interpretation Comments TOTAL PROTEIN 5.1 gm/dL 6.0-8.3 L (BEAKER) (test code = 770) ALBUMIN (BEAKER) 3.1 g/dL 3.5-5.0 L (test code = 1145) ALKALINE 252 U/L 40-150 H PHOSPHATASE (BEAKER) (test code = 346) BILIRUBIN TOTAL 1.2 mg/dL 0.2-1.2 (BEAKER) (test code = 377) SODIUM (BEAKER) 137 meq/L 136-145 (test code = 381) POTASSIUM (BEAKER) 3.7 meq/L 3.5-5.1 (test code = 379) CHLORIDE (BEAKER) 101 meq/L 98-107 (test code = 382) CO2 (BEAKER) (test 26 meq/L 22-29 code = 355) BLOOD UREA 18 mg/dL 7-21 NITROGEN (BEAKER) (test code = 354) CREATININE 1.71 mg/dL 0.57-1.25 H (BEAKER) (test code = 358) GLUCOSE RANDOM 70 mg/dL 70-105 (BEAKER) (test code = 652) CALCIUM (BEAKER) 8.6 mg/dL 8.4-10.2 (test code = 697) AST (SGOT) 33 U/L 5-34 (BEAKER) (test code = 353) ALT (SGPT) 59 U/L 6-55 H (BEAKER) (test code = 347) EGFR (BEAKER) 36 Interpretatio n of eGFR (test code = [...] not appl icable for dialysis patien ts Security Patrol Officer ID - marioPT/[id number] 05:48:51 Test Item Value Reference Range Interpretation Comments PROTIME (BEAKER) (test code = 16.2 seconds 11.9-14.2 H 759) INR (BEAKER) (test code = 370) 1.38 <=5.90 PARTIAL THROMBOPLASTIN TIME 40.2 seconds 22.5-36.0 H (BEAKER) (test code = 760) RECOMMENDED COUMADIN/WARFARIN INR THERAPY RANGESSTANDARD DOSE: 2.0 - 3.0 Includes: PROPHYLAXIS for venous thrombosis, systemic embolization; TREATMENT for venous thrombosis and/or pulmonary embolus.HIGH RISK: Target INR is 2.5-3.5 for patients with mechanical heart valves.CBC (HEMOGRAM ONLY)2023-01-14 05:38:00 Test Item Value Reference Range Interpretation Comments WHITE BLOOD CELL COUNT (BEAKER) 8.8 K/ L 3.5-10.5 (test code = 775) RED BLOOD CELL COUNT (BEAKER) 2.57 M/ L 3.93-5.22 L (test code = 761) HEMOGLOBIN (BEAKER) (test code = 7.3 GM/DL 11.2-15.7 L 410) HEMATOCRIT (BEAKER) (test code = 24.1 % 34.1-44.9 L 411) MEAN CORPUSCULAR VOLUME (BEAKER) 94 fL 79-95 (test code = 753) MEAN CORPUSCULAR HEMOGLOBIN 28.4 pg 25.6-32.2 (BEAKER) (test code = 751) MEAN CORPUSCULAR HEMOGLOBIN CONC 30.3 GM/DL 32.2-35.5 L (BEAKER) (test code = 752) RED CELL DISTRIBUTION WIDTH 18.6 % 11.7-14.4 H (BEAKER) (test code = 412) PLATELET COUNT (BEAKER) (test 160 K/CU MM 150-450 code = 756) MEAN PLATELET VOLUME (BEAKER) 11.8 fL 9.4-12.3 (test code = 754) NUCLEATED RED BLOOD CELLS 0 /100 WBC 0-0 (BEAKER) (test code = 413) POCT-GLUCOSE [id number] 23:47:23 Test Item Value Reference Range Interpretation Comments POC-GLUCOSE METER 78 mg/dL 70-110 : TESTED A T [facility] 6720 (BEAKER) (test code = [facility], 153) [id number]: Security Patrol Officer/Techni waylon ID = [id number] for CARRIE AN, LAURO B-TYPE NATRIURETIC FACTOR (BNP)2023-01-13 20:31:10 Test Item Value Reference Range Interpretation Comments B-TYPE NATRIURETIC PEPTIDE (BEAKER) 794 pg/mL 0-100 H (test code = 700) Security Patrol Officer ID - ADMINB-TYPE NATRIURETIC FACTOR (BNP)2023-01-13 18:42:04 Test Item Value Reference Range Interpretation Comments B-TYPE NATRIURETIC PEPTIDE (BEAKER) 909 pg/mL 0-100 H (test code = 700) Security Patrol Officer ID - ADMINPOCT-GLUCOSE [id number] 17:56:58 Test Item Value Reference Range Interpretation Comments POC-GLUCOSE METER 119 mg/dL 70-110 H : TESTED A T [facility] 6720 (BEAKER) (test code = [facility], 153) [id number]: Security Patrol Officer/Techni waylon ID = [id number] for Amanda Wilson POCT-GLUCOSE [id number] 12:09:30 Test Item Value Reference Range Interpretation Comments POC-GLUCOSE METER 99 mg/dL 70-110 : TESTED A T [facility] 6720 (BEAKER) (test code = [facility], 153) 33056: Security Patrol Officer/Techni waylon ID = [id number] for Jyadon García FUNGUS CULTURE + [id number] 11:22:23 Test Item Value Reference Range Interpretation Comments CULTURE (BEAKER) NEGIN GLABRATA A <1+ Can dida glabrata (test code = 1095) 5-Flurocytosine See_Comment S [Automated message] (test code = 237) The system which generated this result transmitted ref erence range: Suscepti ble 0-4 , Intermedi ate <0 or >4 , Resista nt >16 . The reference range was not used to interpret this result as normal/abnor mal. Amphotericin B See_Comment [Automated m essage] (test code = 136) The system which generated this result transmitted ref erence range: Suscepti ble >0-0 , No Interpretations Established <=0 or >0 . The reference range was not used to interpret this result as normal/abnor mal. Caspofungin See_Comment S [Automated mes [place]] acetate (test code The syste m which = 141) generated this result transmitted ref erence range: Suscepti ble 0-0.12 , Non-susceptible <0 or >.12 , Resistan t . The reference r stefanie was not used to interpret this result as normal/abnor mal. Fluconazole (test See_Comment [Automate d message] code = 143) The system [employer] generated this result transmitted ref erence range: Suscepti ble 0-0 , Dose Depe ndent Susceptible <0 or >0 , Resi. The ref erence range was not u sed to interpret this result as normal/abnor mal. Itraconazole (test See_Comment [Automat ed message] code = 146) The system [employer] generated this result transmitted ref erence range: Suscepti ble 0-0.125 , Dose Dependent Susce ptible <0 or >.125. Th e reference range was not used to int erpret this result as normal/abnormal . Micafungin (test See_Comment S [Automated message] code = 148) The system [employer] generated this result transmitted ref erence range: Suscepti ble 0-0.06 , Non-susceptible <0 or >.06 , Resistan t . The reference r stefanie was not used to interpret this result as normal/abnor mal. Posaconazole (test See_Comment [Automat ed message] code = 152) The system Step-In generated this result transmitted ref erence range: Suscepti ble >0-0 , No Interpretations Established <=0 or >0 . The reference range was not used to interpret this result as normal/abnor mal. Voriconazole (test See_Comment [Automat ed message] code = 153) The system Step-In generated this result transmitted ref erence range: Suscepti ble >0-0 , Dose Dep endent Susceptible <=0 or >0 , No. The refer ence range was not u sed to interpret this result as normal/abnor mal. CULTURE (BEAKER) NEGIN A <1+ Negin (test code = 1095) TROPICALIS tropicali s 5-Flurocytosine See_Comment S [Automated message] (test code = 237) The system which generated this result transmitted ref erence range: Suscepti ble 0-4 , Intermedi ate <0 or >4 , Resista nt >16 . The reference range was not used to interpret this result as normal/abnor mal. Amphotericin B See_Comment [Automated m essage] (test code = 1362) The syste m which generated this result transmitted ref erence range: Suscepti ble >0-0 , No Interpretations Established <=0 or >0 . The reference range was not used to interpret this result as normal/abnor mal. Caspofungin See_Comment S [Automated mes holland] acetate (test code The syste m which = 141) generated this result transmitted ref erence range: Suscepti ble 0-0.25 , Non-susceptible <0 or >.25 , Resistan t . The reference r stefanie was not used to interpret this result as normal/abnor mal. Fluconazole (test See_Comment R [Automate d message] code = 143) The system Step-In generated this result transmitted ref erence range: Suscepti ble 0-2 , Dose Depe ndent Susceptible <0 or >2 , Resi. The ref erence range was not u sed to interpret this result as normal/abnor mal. Itraconazole (test See_Comment [Automat ed message] code = 1462) The system Step-In generated this result transmitted ref erence range: Suscepti ble 0-0.125 , Dose Dependent Susce ptible <0 or >.125. Th e reference range was not used to int erpret this result as normal/abnormal . Micafungin (test See_Comment S [Automated message] code = 148) The system Step-In generated this result transmitted ref erence range: Suscepti ble 0-0.25 , Non-susceptible <0 or >.25 , Resistan t . The reference r stefanie was not used to interpret this result as normal/abnor mal. Posaconazole (test See_Comment [Automat ed message] code = 1522) The system Step-In generated this result transmitted ref erence range: Suscepti ble >0-0 , No Interpretations Established <=0 or >0 . The reference range was not used to interpret this result as normal/abnor mal. Voriconazole (test See_Comment [Automat ed message] code = 1532) The system Step-In generated this result transmitted ref erence range: Suscepti ble 0-0.12 , Dose Dependent Susce ptible <0 or >.12 ,. T he reference range was not used to int erpret this result as normal/abnormal . FUNGUS SMEAR No fungal (BEAKER) (test elements seen code = 1406) RAD, CHEST, 1 VIEW, NON [id number] 08:58:00Reason for exam:->cancelled order but imaging was already performedShould this be performed at the bedside?->Yes[facility]ENZO [facility] RAHMANJOSEDONATO : 1975 Sex: FFINAL REPORT CLINICAL HISTORY: cancelled order but imaging was already performed TECHNIQUE: 1 view of the chest. COMPARISON: 01/12/2023 IMPRESSION: Right central line unchanged. Pulmonary vascular congestion and bilateral airspace opacities are unchanged. Subpulmonic pleural effusions cannot be excluded. The cardiomediastinal silhouette is magnified by technique. Signed: Tarun Lopez MDReport Verified Date/Time: 01/13/2023 08:58:22 Electronically signed by: TARUN LOPEZ M.D.on 01/13/2023 08:58 AMPOCT-GLUCOSE METER 2023-01-13 08:22:49 Test Item Value Reference Range Interpretation Comments POC-GLUCOSE METER 79 mg/dL 70-110 : TESTED A T [facility] 6720 (BEAKER) (test code = ROZ Gutiérrez [facility], 1538) [id number]: Security Patrol Officer/Techni waylon ID = [id number] for Jaydon García CBC W/PLT COUNT & AUTO [id number] 05:13:42 Test Item Value Reference Range Interpretation Comments WHITE BLOOD CELL COUNT (BEAKER) 8.1 K/ L 3.5-10.5 (test code = 775) RED BLOOD CELL COUNT (BEAKER) 2.53 M/ L 3.93-5.22 L (test code = 761) HEMOGLOBIN (BEAKER) (test code = 7.2 GM/DL 11.2-15.7 L 410) HEMATOCRIT (BEAKER) (test code = 23.3 % 34.1-44.9 L 411) MEAN CORPUSCULAR VOLUME (BEAKER) 92 fL 79-95 (test code = 753) MEAN CORPUSCULAR HEMOGLOBIN 28.5 pg 25.6-32.2 (BEAKER) (test code = 751) MEAN CORPUSCULAR HEMOGLOBIN CONC 30.9 GM/DL 32.2-35.5 L (BEAKER) (test code = 752) RED CELL DISTRIBUTION WIDTH 18.9 % 11.7-14.4 H (BEAKER) (test code = 412) PLATELET COUNT (BEAKER) (test 115 K/CU MM 150-450 L code = 756) MEAN PLATELET VOLUME (BEAKER) 12.1 fL 9.4-12.3 (test code = 754) NUCLEATED RED BLOOD CELLS 0 /100 WBC 0-0 (BEAKER) (test code = 413) NEUTROPHILS RELATIVE PERCENT 85 % (BEAKER) (test code = 429) LYMPHOCYTES RELATIVE PERCENT 7 % (BEAKER) (test code = 430) MONOCYTES RELATIVE PERCENT 7 % (BEAKER) (test code = 431) EOSINOPHILS RELATIVE PERCENT 0 % (BEAKER) (test code = 432) BASOPHILS RELATIVE PERCENT 0 % (BEAKER) (test code = 437) NEUTROPHILS ABSOLUTE COUNT 6.88 K/ L 1.56-6.13 H (BEAKER) (test code = 670) LYMPHOCYTES ABSOLUTE COUNT 0.58 K/ L 1.18-3.74 L (BEAKER) (test code = 414) MONOCYTES ABSOLUTE COUNT (BEAKER) 0.57 K/ L 0.24-0.36 H (test code = 415) EOSINOPHILS ABSOLUTE COUNT 0.02 K/ L 0.04-0.36 L (BEAKER) (test code = 416) BASOPHILS ABSOLUTE COUNT (BEAKER) 0.00 K/ L 0.01-0.08 L (test code = 417) IMMATURE GRANULOCYTES-RELATIVE 0.40 % 0.00-1.00 PERCENT (BEAKER) (test code = 2801) COMPREHENSIVE METABOLIC [id number] 05:13:36 Test Item Value Reference Range Interpretation Comments TOTAL PROTEIN 4.9 gm/dL 6.0-8.3 L (BEAKER) (test code = 770) ALBUMIN (BEAKER) 3.1 g/dL 3.5-5.0 L (test code = 1145) ALKALINE 213 U/L 40-150 H PHOSPHATASE (BEAKER) (test code = 346) BILIRUBIN TOTAL 1.1 mg/dL 0.2-1.2 (BEAKER) (test code = 377) SODIUM (BEAKER) 134 meq/L 136-145 L (test code = 381) POTASSIUM (BEAKER) 3.8 meq/L 3.5-5.1 (test code = 379) CHLORIDE (BEAKER) 98 meq/L 98-107 (test code = 382) CO2 (BEAKER) (test 23 meq/L 22-29 code = 355) BLOOD UREA 33 mg/dL 7-21 H NITROGEN (BEAKER) (test code = 354) CREATININE 2.61 mg/dL 0.57-1.25 H (BEAKER) (test code = 358) GLUCOSE RANDOM 69 mg/dL 70-105 L (BEAKER) (test code = 652) CALCIUM (BEAKER) 8.6 mg/dL 8.4-10.2 (test code = 697) AST (SGOT) 35 U/L 5-34 H (BEAKER) (test code = 353) ALT (SGPT) 58 U/L 6-55 H (BEAKER) (test code = 347) EGFR (BEAKER) 22 Interpretatio n of eGFR (test code = [...] not appl icable for dialysis patien ts Security Patrol Officer ID - [id number] 05:12:45 Test Item Value Reference Range Interpretation Comments PHOSPHORUS (BEAKER) (test code = 4.3 mg/dL 2.3-4.7 604) Security Patrol Officer ID - [id number] 05:12:44 Test Item Value Reference Range Interpretation Comments MAGNESIUM (BEAKER) (test code = 1.8 mg/dL 1.6-2.6 627) Security Patrol Officer ID - ADMINPT/[id number] 05:00:07 Test Item Value Reference Range Interpretation Comments PROTIME (BEAKER) (test code = 15.4 seconds 11.9-14.2 H 759) INR (BEAKER) (test code = 370) 1.30 <=5.90 PARTIAL THROMBOPLASTIN TIME 36.8 seconds 22.5-36.0 H (BEAKER) (test code = 760) RECOMMENDED COUMADIN/WARFARIN INR THERAPY RANGESSTANDARD DOSE: 2.0 - 3.0 Includes: PROPHYLAXIS for venous thrombosis, systemic embolization; TREATMENT for venous thrombosis and/or pulmonary embolus.HIGH RISK: Target INR is 2.5-3.5 for patients with mechanical heart valves.CALCIUM, [id number] 04:30:59 Test Item Value Reference Range Interpretation Comments CALCIUM IONIZED (BEAKER) (test 1.12 mmol/L 1.12-1.27 code = 698) PH, BLOOD (BEAKER) (test code = 7.42 1810) POCT-GLUCOSE [id number] 21:46:04 Test Item Value Reference Range Interpretation Comments POC-GLUCOSE METER 112 mg/dL 70-110 H : TESTED A T [facility] 6720 (BEAKER) (test code = [facility], 1538) [address]: Security Patrol Officer/Techni waylon ID = [id number] for LAURO ALCOCER POCT-GLUCOSE [id number] 16:27:00 Test Item Value Reference Range Interpretation Comments POC-GLUCOSE METER 99 mg/dL 70-110 : TESTED A T [facility] 6720 (BEAKER) (test code = [facility], 1538) 34278: Security Patrol Officer/Techni waylon ID = [id number] for Yovanny Keating POCT-GLUCOSE [id number] 12:27:46 Test Item Value Reference Range Interpretation Comments POC-GLUCOSE METER 91 mg/dL 70-110 : TESTED A T [facility] 6720 (BEAKER) (test code = [facility], 1538) 23870: Security Patrol Officer/Techni waylon ID = [id number] for Yovanny Keating RETICULOCYTE [id number] 09:36:55 Test Item Value Reference Range Interpretation Comments RETICULOCYTE COUNT PCT (BEAKER) (test 5.1 % 0.5-1.7 H code = 575) Security Patrol Officer ID - [id number] ID - [id number], CHEST, 1 VIEW, NON [id number] 08:13:00Reason for exam:->Post-opShould this be performed at the bedside?->YesS[facility] SHASTA : 1975 Sex: FFINAL REPORT CLINICAL HISTORY: Post-op TECHNIQUE: 1 view of the chest. COMPARISON: 01/11/2023 IMPRESSION: Right jugular line and left axillary PICC line again seen. Pulmonary vascular congestion and bilateral airspace opacities again seen. Small right pleural effusion now noted. The cardiomediastinal silhouette is magnified by technique. Elevation of the right hemidiaphragm againseen. Signed: Tarun Lopez MDReport Verified Date/Time: 01/12/2023 08:13:02 POCT- GLUCOSE [id number] 07:43:43 Test Item Value Reference Range Interpretation Comments POC-GLUCOSE METER 75 mg/dL 70-110 : TESTED A T [facility] 6720 (BEAKER) (test code = ROZ Gutiérrez [facility], 1538) [address]: Security Patrol Officer/Techni waylon ID = [id number] for Yovanny Keating COMPREHENSIVE METABOLIC [id number] 05:28:52 Test Item Value Reference Range Interpretation Comments TOTAL PROTEIN 4.9 gm/dL 6.0-8.3 L (BEAKER) (test code = 770) ALBUMIN (BEAKER) 3.2 g/dL 3.5-5.0 L (test code = 1145) ALKALINE 211 U/L 40-150 H PHOSPHATASE (BEAKER) (test code = 346) BILIRUBIN TOTAL 1.2 mg/dL 0.2-1.2 (BEAKER) (test code = 377) SODIUM (BEAKER) 138 meq/L 136-145 (test code = 381) POTASSIUM (BEAKER) 3.5 meq/L 3.5-5.1 (test code = 379) CHLORIDE (BEAKER) 102 meq/L 98-107 (test code = 382) CO2 (BEAKER) (test 23 meq/L 22-29 code = 355) BLOOD UREA 25 mg/dL 7-21 H NITROGEN (BEAKER) (test code = 354) CREATININE 2.22 mg/dL 0.57-1.25 H (BEAKER) (test code = 358) GLUCOSE RANDOM 85 mg/dL 70-105 (BEAKER) (test code = 652) CALCIUM (BEAKER) 8.5 mg/dL 8.4-10.2 (test code = 697) AST (SGOT) 36 U/L 5-34 H (BEAKER) (test code = 353) ALT (SGPT) 57 U/L 6-55 H (BEAKER) (test code = 347) EGFR (BEAKER) 27 Interpretatio n of eGFR (test code = [...] not appl icable for dialysis patien ts Security Patrol Officer ID - NEIL [id number] 05:17:39 Test Item Value Reference Range Interpretation Comments PHOSPHORUS (BEAKER) (test code = 3.9 mg/dL 2.3-4.7 604) Security Patrol Officer ID - NEIL [id number] 05:17:38 Test Item Value Reference Range Interpretation Comments MAGNESIUM (BEAKER) (test code = 1.9 mg/dL 1.6-2.6 627) Security Patrol Officer ID - NEIL GPT/[id number] 05:03:27 Test Item Value Reference Range Interpretation Comments PROTIME (BEAKER) (test code = 15.9 seconds 11.9-14.2 H 759) INR (BEAKER) (test code = 370) 1.35 <=5.90 PARTIAL THROMBOPLASTIN TIME 35.9 seconds 22.5-36.0 (BEAKER) (test code = 760) RECOMMENDED COUMADIN/WARFARIN INR THERAPY RANGESSTANDARD DOSE: 2.0 - 3.0 Includes: PROPHYLAXIS for venous thrombosis, systemic embolization; TREATMENT for venous thrombosis and/or pulmonary embolus.HIGH RISK: Target INR is 2.5-3.5 for patients with mechanical heart valves.CBC (HEMOGRAM ONLY)2023-01-12 04:58:36 Test Item Value Reference Range Interpretation Comments WHITE BLOOD CELL COUNT (BEAKER) 7.9 K/ L 3.5-10.5 (test code = 775) RED BLOOD CELL COUNT (BEAKER) 2.48 M/ L 3.93-5.22 L (test code = 761) HEMOGLOBIN (BEAKER) (test code = 7.0 GM/DL 11.2-15.7 L 410) HEMATOCRIT (BEAKER) (test code = 23.1 % 34.1-44.9 L 411) MEAN CORPUSCULAR VOLUME (BEAKER) 93 fL 79-95 (test code = 753) MEAN CORPUSCULAR HEMOGLOBIN 28.2 pg 25.6-32.2 (BEAKER) (test code = 751) MEAN CORPUSCULAR HEMOGLOBIN CONC 30.3 GM/DL 32.2-35.5 L (BEAKER) (test code = 752) RED CELL DISTRIBUTION WIDTH 19.3 % 11.7-14.4 H (BEAKER) (test code = 412) PLATELET COUNT (BEAKER) (test 104 K/CU MM 150-450 L code = 756) MEAN PLATELET VOLUME (BEAKER) 12.3 fL 9.4-12.3 (test code = 754) NUCLEATED RED BLOOD CELLS 0 /100 WBC 0-0 (BEAKER) (test code = 413) POCT-GLUCOSE [id number] 21:16:07 Test Item Value Reference Range Interpretation Comments POC-GLUCOSE METER 108 mg/dL 70-110 : TESTED A T [facility] 6720 ([facility] (test code = [facility] Brock [facility], 1538) 57807: Security Patrol Officer/Techni waylon ID = [id number] for LAURO ALCOCER POCT-GLUCOSE [id number] 12:30:26 Test Item Value Reference Range Interpretation Comments POC-GLUCOSE METER 106 mg/dL 70-110 : Notified RN/MD: ([facility] (test code = TESTED AT [facility] 6720 1538) [facility], [address]: Security Patrol Officer/Techni waylon ID = [id number] for Johnnie rr, Wendy RAD, CHEST, 1 VIEW, NON [id number] 11:14:00Reason for exam:->Post-opShould this be performed at the bedside?->Yes [facility] : 1975 Sex: FFINAL REPORT CLINICAL HISTORY: Post-op TECHNIQUE: 1 view of the chest. COMPARISON: 01/10/2023 IMPRESSION: Right jugular line unchanged. Pulmonary vascular congestion again seen without lobar consolidation or significant pleural fluid. No cardiomegaly. Signed: Tarun Lopez Verified Date/Time: 01/11/2023 11:14:44 Reading Location: [address] Reading Room POCT- GLUCOSE [id number] 08:16:55 Test Item Value Reference Range Interpretation Comments POC-GLUCOSE METER 91 mg/dL 70-110 : Notified RN/MD: TESTED (BEAKER) (test code = AT [facility] 6720 [facility] 1538) [facility], 770 30: Security Patrol Officer/Techni waylon ID = [id number] for Wendy Sanchez COMPREHENSIVE METABOLIC [id number] 05:44:24 Test Item Value Reference Range Interpretation Comments TOTAL PROTEIN 4.8 gm/dL 6.0-8.3 L (BEAKER) (test code = 770) ALBUMIN (BEAKER) 3.0 g/dL 3.5-5.0 L (test code = 1145) ALKALINE 232 U/L 40-150 H PHOSPHATASE (BEAKER) (test code = 346) BILIRUBIN TOTAL 1.2 mg/dL 0.2-1.2 (BEAKER) (test code = 377) SODIUM (BEAKER) 139 meq/L 136-145 (test code = 381) POTASSIUM (BEAKER) 3.5 meq/L 3.5-5.1 (test code = 379) CHLORIDE (BEAKER) 103 meq/L 98-107 (test code = 382) CO2 (BEAKER) (test 23 meq/L 22-29 code = 355) BLOOD UREA 19 mg/dL 7-21 NITROGEN (BEAKER) (test code = 354) CREATININE 1.78 mg/dL 0.57-1.25 H (BEAKER) (test code = 358) GLUCOSE RANDOM 83 mg/dL 70-105 (BEAKER) (test code = 652) CALCIUM (BEAKER) 8.5 mg/dL 8.4-10.2 (test code = 697) AST (SGOT) 42 U/L 5-34 H (BEAKER) (test code = 353) ALT (SGPT) 59 U/L 6-55 H (BEAKER) (test code = 347) EGFR (BEAKER) 35 Interpretatio n of eGFR (test code = [...] not appl icable for dialysis patien ts Security Patrol Officer ID - [id number] 05:40:37 Test Item Value Reference Range Interpretation Comments PHOSPHORUS (BEAKER) (test code = 3.8 mg/dL 2.3-4.7 604) Security Patrol Officer ID - [id number] 05:40:36 Test Item Value Reference Range Interpretation Comments MAGNESIUM (BEAKER) (test code = 1.9 mg/dL 1.6-2.6 627) Security Patrol Officer ID - MARCOPT/[id number] 05:17:13 Test Item Value Reference Range Interpretation Comments PROTIME (BEAKER) (test code = 15.1 seconds 11.9-14.2 H 759) INR (BEAKER) (test code = 370) 1.21 <=5.90 PARTIAL THROMBOPLASTIN TIME 33.0 seconds 22.5-36.0 (BEAKER) (test code = 760) RECOMMENDED COUMADIN/WARFARIN INR THERAPY RANGESSTANDARD DOSE: 2.0 - 3.0 Includes: PROPHYLAXIS for venous thrombosis, systemic embolization; TREATMENT for venous thrombosis and/or pulmonary embolus.HIGH RISK: Target INR is 2.5-3.5 for patients with mechanical heart valves.CBC W/PLT COUNT & AUTO [id number] 05:08:50 Test Item Value Reference Range Interpretation Comments WHITE BLOOD CELL COUNT (BEAKER) 10.5 K/ L 3.5-10.5 (test code = 775) RED BLOOD CELL COUNT (BEAKER) 2.65 M/ L 3.93-5.22 L (test code = 761) HEMOGLOBIN (BEAKER) (test code = 7.4 GM/DL 11.2-15.7 L 410) HEMATOCRIT (BEAKER) (test code = 24.2 % 34.1-44.9 L 411) MEAN CORPUSCULAR VOLUME (BEAKER) 91 fL 79-95 (test code = 753) MEAN CORPUSCULAR HEMOGLOBIN 27.9 pg 25.6-32.2 (BEAKER) (test code = 751) MEAN CORPUSCULAR HEMOGLOBIN CONC 30.6 GM/DL 32.2-35.5 L (BEAKER) (test code = 752) RED CELL DISTRIBUTION WIDTH 19.4 % 11.7-14.4 H (BEAKER) (test code = 412) PLATELET COUNT (BEAKER) (test 103 K/CU MM 150-450 L code = 756) MEAN PLATELET VOLUME (BEAKER) 11.3 fL 9.4-12.3 (test code = 754) NUCLEATED RED BLOOD CELLS 0 /100 WBC 0-0 (BEAKER) (test code = 413) NEUTROPHILS RELATIVE PERCENT 91 % (BEAKER) (test code = 429) LYMPHOCYTES RELATIVE PERCENT 5 % (BEAKER) (test code = 430) MONOCYTES RELATIVE PERCENT 4 % (BEAKER) (test code = 431) EOSINOPHILS RELATIVE PERCENT 0 % (BEAKER) (test code = 432) BASOPHILS RELATIVE PERCENT 0 % (BEAKER) (test code = 437) NEUTROPHILS ABSOLUTE COUNT 9.51 K/ L 1.56-6.13 H (BEAKER) (test code = 670) LYMPHOCYTES ABSOLUTE COUNT 0.47 K/ L 1.18-3.74 L (BEAKER) (test code = 414) MONOCYTES ABSOLUTE COUNT (BEAKER) 0.43 K/ L 0.24-0.36 H (test code = 415) EOSINOPHILS ABSOLUTE COUNT 0.01 K/ L 0.04-0.36 L (BEAKER) (test code = 416) BASOPHILS ABSOLUTE COUNT (BEAKER) 0.01 K/ L 0.01-0.08 (test code = 417) IMMATURE GRANULOCYTES-RELATIVE 0.60 % 0.00-1.00 PERCENT (BEAKER) (test code = 2801) CALCIUM, [id number] 05:02:48 Test Item Value Reference Range Interpretation Comments CALCIUM IONIZED (BEAKER) (test 1.08 mmol/L 1.12-1.27 L code = 698) PH, BLOOD (BEAKER) (test code = 7.43 1810) POCT-GLUCOSE [id number] 20:49:05 Test Item Value Reference Range Interpretation Comments POC-GLUCOSE METER 102 mg/dL 70-110 : TESTED A T [facility] 6720 ([facility] (test code = ROZ Gutiérrez [facility], 1538) [address]: Security Patrol Officer/Techni waylon ID = [id number] for An Cash harrington POCT-GLUCOSE [id number] 17:37:48 Test Item Value Reference Range Interpretation Comments POC-GLUCOSE METER 88 mg/dL 70-110 : Notified RN/MD: TESTED ([facility] (test code = AT [place] [address]) [facility], [facility] 30: Security Patrol Officer/Techni waylon ID = [id number] for Daniel , Wendy POCT-GLUCOSE [id number] 11:33:53 Test Item Value Reference Range Interpretation Comments POC-GLUCOSE METER 90 mg/dL 70-110 : Notified RN/MD: TESTED ([facility] (test code = AT [place] [id number] [place] [id number]) [facility], [facility] 30: Security Patrol Officer/Techni waylon ID = [id number] for Daniel , Wendy POCT-GLUCOSE [id number] 08:22:47 Test Item Value Reference Range Interpretation Comments POC-GLUCOSE METER 78 mg/dL 70-110 : Notified RN/MD: TESTED ([facility] (test code = AT [place] [id number] [place] [address]) [place], 770 30: Security Patrol Officer/Techni waylon ID = [id number] for Wendy Sanchez [id number] 06:34:37 Test Item Value Reference Range Interpretation Comments PARTIAL THROMBOPLASTIN TIME 100.5 seconds 22.5-36.0 H (BEAKER) (test code = 760) [id number] 06:34:36 Test Item Value Reference Range Interpretation Comments PROTIME (BEAKER) (test code = 15.4 seconds 11.9-14.2 H 759) INR (BEAKER) (test code = 370) 1.24 <=5.90 PARTIAL THROMBOPLASTIN TIME 100.5 seconds 22.5-36.0 H (BEAKER) (test code = 760) RECOMMENDED COUMADIN/WARFARIN INR THERAPY RANGESSTANDARD DOSE: 2.0 - 3.0 Includes: PROPHYLAXIS for venous thrombosis, systemic embolization; TREATMENT for venous thrombosis and/or pulmonary embolus.HIGH RISK: Target INR is 2.5-3.5 for patients with mechanical heart valves.COMPREHENSIVE METABOLIC PANEL 2023-01-10 06:17:24 Test Item Value Reference Range Interpretation Comments TOTAL PROTEIN 4.7 gm/dL 6.0-8.3 L (BEAKER) (test code = 770) ALBUMIN (BEAKER) 2.8 g/dL 3.5-5.0 L (test code = 1145) ALKALINE 221 U/L 40-150 H PHOSPHATASE (BEAKER) (test code = 346) BILIRUBIN TOTAL 1.3 mg/dL 0.2-1.2 H (BEAKER) (test code = 377) SODIUM (BEAKER) 131 meq/L 136-145 L (test code = 381) POTASSIUM (BEAKER) 4.0 meq/L 3.5-5.1 (test code = 379) CHLORIDE (BEAKER) 95 meq/L 98-107 L (test code = 382) CO2 (BEAKER) (test 22 meq/L 22-29 code = 355) BLOOD UREA 38 mg/dL 7-21 H NITROGEN (BEAKER) (test code = 354) CREATININE 2.81 mg/dL 0.57-1.25 H (BEAKER) (test code = 358) GLUCOSE RANDOM 80 mg/dL 70-105 (BEAKER) (test code = 652) CALCIUM (BEAKER) 8.4 mg/dL 8.4-10.2 (test code = 697) AST (SGOT) 40 U/L 5-34 H (BEAKER) (test code = 353) ALT (SGPT) 65 U/L 6-55 H (BEAKER) (test code = 347) EGFR (BEAKER) 20 Interpretatio n of eGFR (test code = [...] not appl icable for dialysis patien ts Security Patrol Officer ID - [id number] 06:15:54 Test Item Value Reference Range Interpretation Comments PHOSPHORUS (BEAKER) (test code = 6.2 mg/dL 2.3-4.7 H 604) Security Patrol Officer ID - [id number] 06:15:53 Test Item Value Reference Range Interpretation Comments MAGNESIUM (BEAKER) (test code = 2.1 mg/dL 1.6-2.6 627) Security Patrol Officer ID - [id number] (HEMOGRAM ONLY)2023-01-10 05:56:50 Test Item Value Reference Range Interpretation Comments WHITE BLOOD CELL COUNT (BEAKER) 11.2 K/ L 3.5-10.5 H (test code = 775) RED BLOOD CELL COUNT (BEAKER) 2.95 M/ L 3.93-5.22 L (test code = 761) HEMOGLOBIN (BEAKER) (test code = 8.2 GM/DL 11.2-15.7 L 410) HEMATOCRIT (BEAKER) (test code = 26.1 % 34.1-44.9 L 411) MEAN CORPUSCULAR VOLUME (BEAKER) 89 fL 79-95 (test code = 753) MEAN CORPUSCULAR HEMOGLOBIN 27.8 pg 25.6-32.2 (BEAKER) (test code = 751) MEAN CORPUSCULAR HEMOGLOBIN CONC 31.4 GM/DL 32.2-35.5 L (BEAKER) (test code = 752) RED CELL DISTRIBUTION WIDTH 19.6 % 11.7-14.4 H (BEAKER) (test code = 412) PLATELET COUNT (BEAKER) (test 102 K/CU MM 150-450 L code = 756) MEAN PLATELET VOLUME (BEAKER) 12.2 fL 9.4-12.3 (test code = 754) NUCLEATED RED BLOOD CELLS 0 /100 WBC 0-0 (BEAKER) (test code = 413) RAD, CHEST, 1 VIEW, NON [id number] 05:43:00Reason for exam:->Post-opShould this be performed at the bedside?->Yes [facility] 1975 Sex: FFINAL REPORT RAD, CHEST, 1 VIEW, NON DEPT INDICATION: Post-op COMPARISON: Prior day's exam FINDINGS: Portable frontal view of the chest. IMPRESSION: Support Lines: Stable right transjugular central venous catheter. Lungs and pleura: Unchanged hypoinflated lungs with central venous congestion and asymmetric elevation of the right hemidiaphragm. No focal consolidation or effusion.No pneumothorax. Heart and mediastinum: Stable contours. Additional findings: None. Signed: Tray Franklin Verified Date/Time: 01/10/2023 05:43:14 POCT- GLUCOSE [id number] 21:04:15 Test Item Value Reference Range Interpretation Comments POC-GLUCOSE METER 95 mg/dL 70-110 : TESTED A T [facility] 6720 (RHEA) (test code = [place], 1538) [id number]: Security Patrol Officer/Techni waylon ID = [id number] for Cash Tobar [id number] 21:02:02 Test Item Value Reference Range Interpretation Comments PARTIAL THROMBOPLASTIN TIME 62.3 seconds 22.5-36.0 H (RHEA) (test code = 760) CT, BRAIN, WITHOUT [id number] 20:56:00Reason for Exam (Free Text) - Addiitonal information for Radiologist->Supratherapeutic heparin with nose bleeding and now headache + dizziness r/o bleed. [facility] : 1975 Sex: FFINAL REPORT EXAM: CT, BRAIN, WITHOUT CONTRAST INDICATION: Dizziness, non-specific TECHNIQUE: CT images from skull base to vertex without IV contrast. This exam was performed according to the departmental dose optimization program which includes automated exposure control, adjustment of the mA and/or kV according to the patient size, and/or use of an iterative reconstruction tech nique. COMPARISON: None. FINDINGS: Parenchyma: No evidence of acute infarction. No hemorrhage. No mass or mass effect. Extra-axial Collection: None Ventricular System: Normal Osseous Structures: No acute osseous abnormality. Included Orbits: Normal Paranasal Sinuses: Spumous secretions are within the left frontal sinus, left anterior ethmoidal air cells, and left maxillary antrum as well as the sphenoid sinus. Tympanomastoid Cavities: Normal Other: None IMPRESSION: 1. No acute intracranial abnormality. 2. The secretions within the left paranasal sinus in an ostiomeatal distribution as well as the sphenoid sinus may reflect sinusitis in the correct clinical setting. Signed: Tray Franklin MDReport Caitlin ified Date/Time: 01/09/2023 20:56:48 CBC W/PLT COUNT & AUTO [id number] 19:34:05 Test Item Value Reference Range Interpretation Comments WHITE BLOOD CELL COUNT (BEAKER) 11.8 K/ L 3.5-10.5 H (test code = 775) RED BLOOD CELL COUNT (BEAKER) 2.90 M/ L 3.93-5.22 L (test code = 761) HEMOGLOBIN (BEAKER) (test code = 8.2 GM/DL 11.2-15.7 L 410) HEMATOCRIT (BEAKER) (test code = 25.7 % 34.1-44.9 L 411) MEAN CORPUSCULAR VOLUME (BEAKER) 89 fL 79-95 (test code = 753) MEAN CORPUSCULAR HEMOGLOBIN 28.3 pg 25.6-32.2 (BEAKER) (test code = 751) MEAN CORPUSCULAR HEMOGLOBIN CONC 31.9 GM/DL 32.2-35.5 L (BEAKER) (test code = 752) RED CELL DISTRIBUTION WIDTH 19.6 % 11.7-14.4 H (BEAKER) (test code = 412) PLATELET COUNT (BEAKER) (test code 99 K/CU MM 150-450 L = 756) MEAN PLATELET VOLUME (BEAKER) 12.5 fL 9.4-12.3 H (test code = 754) NUCLEATED RED BLOOD CELLS (BEAKER) 0 /100 WBC 0-0 (test code = 413) NEUTROPHILS RELATIVE PERCENT 95 % (BEAKER) (test code = 429) LYMPHOCYTES RELATIVE PERCENT 3 % (BEAKER) (test code = 430) MONOCYTES RELATIVE PERCENT 2 % (BEAKER) (test code = 431) EOSINOPHILS RELATIVE PERCENT 0 % (BEAKER) (test code = 432) BASOPHILS RELATIVE PERCENT 0 % (BEAKER) (test code = 437) NEUTROPHILS ABSOLUTE COUNT 11.17 K/ L 1.56-6.13 H (BEAKER) (test code = 670) LYMPHOCYTES ABSOLUTE COUNT 0.34 K/ L 1.18-3.74 L (BEAKER) (test code = 414) MONOCYTES ABSOLUTE COUNT (BEAKER) 0.22 K/ L 0.24-0.36 L (test code = 415) EOSINOPHILS ABSOLUTE COUNT 0.00 K/ L 0.04-0.36 L (BEAKER) (test code = 416) BASOPHILS ABSOLUTE COUNT (BEAKER) 0.00 K/ L 0.01-0.08 L (test code = 417) IMMATURE GRANULOCYTES-RELATIVE 0.60 % 0.00-1.00 PERCENT (BEAKER) (test code = 2801) POCT-GLUCOSE [id number] 18:22:40 Test Item Value Reference Range Interpretation Comments POC-GLUCOSE METER 129 mg/dL 70-110 H : TESTED A T [facility] 6720 (BEAKER) (test code = [facility], 1538) [id number]: Security Patrol Officer/Techni waylon ID = [id number] for Symone Parker POCT-GLUCOSE [id number] 16:27:18 Test Item Value Reference Range Interpretation Comments POC-GLUCOSE METER 194 mg/dL 70-110 H : TESTED A T [facility] 6720 (BEAKER) (test code = [facility], 1538) 18174: Security Patrol Officer/Techni waylon ID = [id number] for Jaydon Ac POCT-GLUCOSE [id number] 12:24:33 Test Item Value Reference Range Interpretation Comments POC-GLUCOSE METER 100 mg/dL 70-110 : TESTED A T [facility] 6720 (BEAKER) (test code = [facility], 1538) [id number]: Security Patrol Officer/Techni waylon ID = [id number] for Gian Acta RAD, CHEST, 1 VIEW, NON [id number] 08:57:00Reason for exam:->Post-opShould this be performed at the bedside?->Yes [facility] 1975 Sex: FFINAL REPORT Exam: RAD, CHEST, 1 VIEW, NON DEPTDate: 01/09/2023 8:55 AM Indication: Postoperative/Postprocedural Comparison: Chest x-ray from the prior day IMPRESSION: Lines/Tubes:Stable right internal jugular central venous catheter. Lungs: Unchanged low lung volumes. Bibasilar airspace opacities slightly increased which may represent subsegmental atelectasis or pneumonitis. No new focal consolidation. Pleura:No pleural effusion. No pneumothorax. Heart/Mediastinum:The cardiomediastinal silhouette is unchanged in size and contour. Bones/Soft Tissues: No acute osseous injury. Abdomen: No free air below the diaphragm. Signed: Pawan Macario MDReport Verified Date/Time: 01/09/2023 08:57:42 POCT- GLUCOSE [id number] 08:35:12 Test Item Value Reference Range Interpretation Comments POC-GLUCOSE METER 94 mg/dL 70-110 : TESTED A T [facility] 6720 (BEAKER) (test code = [facility], 1538) 16165: Security Patrol Officer/Techni waylon ID = [id number] for Jaydon García [id number] 07:38:46 Test Item Value Reference Range Interpretation Comments PROTIME (BEAKER) (test code = 15.7 seconds 11.9-14.2 H 759) INR (BEAKER) (test code = 370) 1.33 <=5.90 PARTIAL THROMBOPLASTIN TIME 142.2 seconds 22.5-36.0 H (BEAKER) (test code = 760) RECOMMENDED COUMADIN/WARFARIN INR THERAPY RANGESSTANDARD DOSE: 2.0 - 3.0 Includes: PROPHYLAXIS for venous thrombosis, systemic embolization; TREATMENT for venous thrombosis and/or pulmonary embolus.HIGH RISK: Target INR is 2.5-3.5 for patients with mechanical heart valves.COMPREHENSIVE METABOLIC PANEL 2023-01-09 07:18:03 Test Item Value Reference Range Interpretation Comments TOTAL PROTEIN 4.4 gm/dL 6.0-8.3 L (BEAKER) (test code = 770) ALBUMIN (BEAKER) 2.8 g/dL 3.5-5.0 L (test code = 1145) ALKALINE 173 U/L 40-150 H PHOSPHATASE (BEAKER) (test code = 346) BILIRUBIN TOTAL 1.3 mg/dL 0.2-1.2 H (BEAKER) (test code = 377) SODIUM (BEAKER) 135 meq/L 136-145 L (test code = 381) POTASSIUM (BEAKER) 3.6 meq/L 3.5-5.1 (test code = 379) CHLORIDE (BEAKER) 98 meq/L 98-107 (test code = 382) CO2 (BEAKER) (test 25 meq/L 22-29 code = 355) BLOOD UREA 31 mg/dL 7-21 H NITROGEN (BEAKER) (test code = 354) CREATININE 2.25 mg/dL 0.57-1.25 H (BEAKER) (test code = 358) GLUCOSE RANDOM 75 mg/dL 70-105 (BEAKER) (test code = 652) CALCIUM (BEAKER) 8.2 mg/dL 8.4-10.2 L (test code = 697) AST (SGOT) 40 U/L 5-34 H (BEAKER) (test code = 353) ALT (SGPT) 61 U/L 6-55 H (BEAKER) (test code = 347) EGFR (BEAKER) 26 Interpretatio n of eGFR (test code = [...] not appl icable for dialysis patien ts Security Patrol Officer ID - [id number] 07:04:20 Test Item Value Reference Range Interpretation Comments PHOSPHORUS (BEAKER) (test code = 5.2 mg/dL 2.3-4.7 H 604) Security Patrol Officer ID - [id number] 07:04:18 Test Item Value Reference Range Interpretation Comments MAGNESIUM (BEAKER) (test code = 1.9 mg/dL 1.6-2.6 627) Security Patrol Officer ID - [id number] (HEMOGRAM ONLY)2023-01-09 06:49:36 Test Item Value Reference Range Interpretation Comments WHITE BLOOD CELL COUNT (BEAKER) 10.3 K/ L 3.5-10.5 (test code = 775) RED BLOOD CELL COUNT (BEAKER) 2.84 M/ L 3.93-5.22 L (test code = 761) HEMOGLOBIN (BEAKER) (test code = 7.8 GM/DL 11.2-15.7 L 410) HEMATOCRIT (BEAKER) (test code = 25.3 % 34.1-44.9 L 411) MEAN CORPUSCULAR VOLUME (BEAKER) 89 fL 79-95 (test code = 753) MEAN CORPUSCULAR HEMOGLOBIN 27.5 pg 25.6-32.2 (BEAKER) (test code = 751) MEAN CORPUSCULAR HEMOGLOBIN CONC 30.8 GM/DL 32.2-35.5 L (BEAKER) (test code = 752) RED CELL DISTRIBUTION WIDTH 20.2 % 11.7-14.4 H (BEAKER) (test code = 412) PLATELET COUNT (BEAKER) (test code 86 K/CU MM 150-450 L = 756) MEAN PLATELET VOLUME (BEAKER) 11.5 fL 9.4-12.3 (test code = 754) NUCLEATED RED BLOOD CELLS (BEAKER) 0 /100 WBC 0-0 (test code = 413) POCT-GLUCOSE [id number] 21:38:24 Test Item Value Reference Range Interpretation Comments POC-GLUCOSE METER 102 mg/dL 70-110 : TESTED A T [facility] 6720 (BEAKER) (test code = [facility], 1538) [id number]: Security Patrol Officer/Techni waylon ID = [id number] for Екатерина Joyner POCT-GLUCOSE [id number] 16:22:06 Test Item Value Reference Range Interpretation Comments POC-GLUCOSE METER 119 mg/dL 70-110 H : TESTED A T [facility] 6720 (BEAKER) (test code = [facility] [place], 1538) 08154: Security Patrol Officer/Techni waylon ID = [id number] for Jaydon Ac LACTATE DEHYDROGENASE (LDH)2023-01-08 15:43:39 Test Item Value Reference Range Interpretation Comments LACTATE DEHYDROGENASE (BEAKER) (test 444 U/L 125-220 H code = 635) Security Patrol Officer ID - [id number] 15:15:03 Test Item Value Reference Range Interpretation Comments HAPTOGLOBIN (BEAKER) (test code = 194 mg/dL 14-258 366) Security Patrol Officer ID - BSPOCT-GLUCOSE [id number] 11:58:39 Test Item Value Reference Range Interpretation Comments POC-GLUCOSE METER 130 mg/dL 70-110 H : TESTED A T [facility] 6720 (BEAKER) (test code = [facility], 1538) [id number]: Security Patrol Officer/Techni waylon ID = [id number] for Jaydon Ac RAD, CHEST, 1 VIEW, NON [id number] 09:27:00Reason for exam:->Post-opShould this be performed at the bedside?->Yes [facility] SHASTA : 1975 Sex: FFINAL REPORT Exam: RAD, CHEST, 1 VIEW, NON DEPTDate: 01/08/2023 9:25 AM Indication: Postoperative/Postprocedural Comparison: None IMPRESSION: Lines/Tubes:Stable right internal jugular central venous catheter. Lungs:Stable low lung volumes. Unchanged retrocardiac airspace opacity which may represent atelectasis or pneumonitis. Mildly prominent interstitial lung markings may represent a component of edema. Pleura:No pleural effusion. No pneumothorax. Heart/Mediastinum:The cardiomediastinal silhouette is unchanged in size and contour. Bones/Soft Tissues: No acute osseous injury. Abdomen: No free air below the diaphragm. Signed: Pawan Macario MDReport Verified Date/Time: 01/08/2023 09:27:38 CULOCYTE [id number] 09:23:14 Test Item Value Reference Range Interpretation Comments RETICULOCYTE COUNT PCT (BEAKER) (test 8.9 % 0.5-1.7 H code = 575) Security Patrol Officer ID - [id number] ID - [id number]-GLUCOSE [id number] 07:55:49 Test Item Value Reference Range Interpretation Comments POC-GLUCOSE METER 91 mg/dL 70-110 : TESTED A T [facility] 6720 (BEAKER) (test code = [facility], 1538) [id number]: Security Patrol Officer/Techni waylon ID = [id number] for Symone De La Rosa [id number] 07:21:57 Test Item Value Reference Range Interpretation Comments PHOSPHORUS (BEAKER) (test code = 4.1 mg/dL 2.3-4.7 604) Security Patrol Officer ID - [id number] 07:21:56 Test Item Value Reference Range Interpretation Comments MAGNESIUM (BEAKER) (test code = 1.9 mg/dL 1.6-2.6 627) Security Patrol Officer ID - MMCOMPREHENSIVE METABOLIC [id number] 07:21:55 Test Item Value Reference Range Interpretation Comments TOTAL PROTEIN 4.4 gm/dL 6.0-8.3 L (BEAKER) (test code = 770) ALBUMIN (BEAKER) 2.7 g/dL 3.5-5.0 L (test code = 1145) ALKALINE 154 U/L 40-150 H PHOSPHATASE (BEAKER) (test code = 346) BILIRUBIN TOTAL 1.2 mg/dL 0.2-1.2 (BEAKER) (test code = 377) SODIUM (BEAKER) 137 meq/L 136-145 (test code = 381) POTASSIUM (BEAKER) 3.6 meq/L 3.5-5.1 (test code = 379) CHLORIDE (BEAKER) 101 meq/L 98-107 (test code = 382) CO2 (BEAKER) (test 26 meq/L 22-29 code = 355) BLOOD UREA 22 mg/dL 7-21 H NITROGEN (BEAKER) (test code = 354) CREATININE 1.69 mg/dL 0.57-1.25 H (BEAKER) (test code = 358) GLUCOSE RANDOM 90 mg/dL 70-105 (BEAKER) (test code = 652) CALCIUM (BEAKER) 8.0 mg/dL 8.4-10.2 L (test code = 697) AST (SGOT) 46 U/L 5-34 H (BEAKER) (test code = 353) ALT (SGPT) 61 U/L 6-55 H (BEAKER) (test code = 347) EGFR (BEAKER) 37 Interpretatio n of eGFR (test code = 1092) mL/min/1.[address] age Description sq m Result G1 Veronica l or high >=90 G2 Mildly decreased 60-89 G3a Mildl y to moderately 45-5 9 G3b Moderately to s everely 30-44 G4 Sever ly decreased 15-29 G5 Kidney failure <15Repo rted eGFR is based on the CKD-EPI 2020 equation t hat does not use a race coefficientEsti mated GFR is not as accur ate as Creatinine Katelyn rachell in predicting glom erular filtration rate . Estimated GFR is not appl icable for dialysis patien ts Security Patrol Officer ID - MMCBC (HEMOGRAM ONLY)2023-01-08 07:00:54 Test Item Value Reference Range Interpretation Comments WHITE BLOOD CELL COUNT (BEAKER) 10.3 K/ L 3.5-10.5 (test code = 775) RED BLOOD CELL COUNT (BEAKER) 2.45 M/ L 3.93-5.22 L (test code = 761) HEMOGLOBIN (BEAKER) (test code = 6.9 GM/DL 11.2-15.7 L 410) HEMATOCRIT (BEAKER) (test code = 22.6 % 34.1-44.9 L 411) MEAN CORPUSCULAR VOLUME (BEAKER) 92 fL 79-95 (test code = 753) MEAN CORPUSCULAR HEMOGLOBIN 28.2 pg 25.6-32.2 (BEAKER) (test code = 751) MEAN CORPUSCULAR HEMOGLOBIN CONC 30.5 GM/DL 32.2-35.5 L (BEAKER) (test code = 752) RED CELL DISTRIBUTION WIDTH 20.9 % 11.7-14.4 H (BEAKER) (test code = 412) PLATELET COUNT (BEAKER) (test code 98 K/CU MM 150-450 L = 756) MEAN PLATELET VOLUME (BEAKER) 12.7 fL 9.4-12.3 H (test code = 754) NUCLEATED RED BLOOD CELLS (BEAKER) 0 /100 WBC 0-0 (test code = 413) [id number] 01:14:33 Test Item Value Reference Range Interpretation Comments PROTIME (BEAKER) (test code = 15.2 seconds 11.9-14.2 H 759) INR (BEAKER) (test code = 370) 1.27 <=5.90 PARTIAL THROMBOPLASTIN TIME 76.9 seconds 22.5-36.0 H (BEAKER) (test code = 760) RECOMMENDED COUMADIN/WARFARIN INR THERAPY RANGESSTANDARD DOSE: 2.0 - 3.0 Includes: PROPHYLAXIS for venous thrombosis, systemic embolization; TREATMENT for venous thrombosis and/or pulmonary embolus.HIGH RISK: Target INR is 2.5-3.5 for patients with mechanical heart valves.[id number] 01:14:32 Test Item Value Reference Range Interpretation Comments PARTIAL THROMBOPLASTIN TIME 76.9 seconds 22.5-36.0 H (BEAKER) (test code = 760) POCT-GLUCOSE [id number] 01:05:42 Test Item Value Reference Range Interpretation Comments POC-GLUCOSE METER 111 mg/dL 70-110 H : TESTED A T [facility] 6720 (BEAKER) (test code = [facility] [employer] [facility], 1538) [id number]: Security Patrol Officer/Techni waylon ID = [id number] for Jamie Davis POCT-GLUCOSE [id number] 19:25:11 Test Item Value Reference Range Interpretation Comments POC-GLUCOSE METER 129 mg/dL 70-110 H : TESTED A T [facility] 6720 (BEAKER) (test code = [facility] [employer] [facility], 1538) 96100: Security Patrol Officer/Techni waylon ID = [id number] for MARGARET RANGEL DD [id number] 18:20:25 Test Item Value Reference Range Interpretation Comments PARTIAL THROMBOPLASTIN TIME 87.8 seconds 22.5-36.0 H (BEAKER) (test code = 760) SURGICALLY OBTAINED CULTURE + GRAM [id number] 16:53:45 Test Item Value Reference Range Interpretation Comments CULTURE (BEAKER) ENTEROCOCCUS A <1+ Enteroc occus (test code = FAECALIS faecalis 1095) Ampicillin (test S code = 26) Linezolid (test S code = 40) Vancomycin (test S code = 13) CULTURE (BEAKER) A <1+ Lactoba cillus (test code = species 1095) CULTURE (BEAKER) A From Broth Only (test code = Negin albican s 1095) GRAM STAIN RESULT <1+ WBCs (BEAKER) (test code = 1123) GRAM STAIN RESULT No organisms seen (BEAKER) (test code = 401803) [id number] 15:37:15 Test Item Value Reference Range Interpretation Comments PARTIAL THROMBOPLASTIN TIME 105.2 seconds 22.5-36.0 H (BEAKER) (test code = 760) CBC (HEMOGRAM ONLY)2023-01-07 15:30:10 Test Item Value Reference Range Interpretation Comments WHITE BLOOD CELL COUNT (BEAKER) 12.9 K/ L 3.5-10.5 H (test code = 775) RED BLOOD CELL COUNT (BEAKER) 2.69 M/ L 3.93-5.22 L (test code = 761) HEMOGLOBIN (BEAKER) (test code = 7.4 GM/DL 11.2-15.7 L 410) HEMATOCRIT (BEAKER) (test code = 23.8 % 34.1-44.9 L 411) MEAN CORPUSCULAR VOLUME (BEAKER) 89 fL 79-95 (test code = 753) MEAN CORPUSCULAR HEMOGLOBIN 27.5 pg 25.6-32.2 (BEAKER) (test code = 751) MEAN CORPUSCULAR HEMOGLOBIN CONC 31.1 GM/DL 32.2-35.5 L (BEAKER) (test code = 752) RED CELL DISTRIBUTION WIDTH 21.1 % 11.7-14.4 H (BEAKER) (test code = 412) PLATELET COUNT (BEAKER) (test 119 K/CU MM 150-450 L code = 756) MEAN PLATELET VOLUME (BEAKER) 11.7 fL 9.4-12.3 (test code = 754) NUCLEATED RED BLOOD CELLS 0 /100 WBC 0-0 (BEAKER) (test code = 413) Limited 2D [id number] 15:03:07Ejection FractionSLEH ECHO HEARTLAB MKCKESSON [facility] [id number] 13:39:57 Test Item Value Reference Range Interpretation Comments POC-GLUCOSE METER 122 mg/dL 70-110 H : TESTED A T [facility] 6720 (BEAKER) (test code = [place], 1538) 30397: Security Patrol Officer/Techni waylon ID = [id number] for MARGARET RANGEL DD [id number] 07:25:11 Test Item Value Reference Range Interpretation Comments PARTIAL THROMBOPLASTIN TIME 46.3 seconds 22.5-36.0 H (BEAKER) (test code = 760) CBC (HEMOGRAM ONLY)2023-01-07 07:22:23 Test Item Value Reference Range Interpretation Comments WHITE BLOOD CELL COUNT (BEAKER) 12.8 K/ L 3.5-10.5 H (test code = 775) RED BLOOD CELL COUNT (BEAKER) 2.56 M/ L 3.93-5.22 L (test code = 761) HEMOGLOBIN (BEAKER) (test code = 7.1 GM/DL 11.2-15.7 L 410) HEMATOCRIT (BEAKER) (test code = 23.0 % 34.1-44.9 L 411) MEAN CORPUSCULAR VOLUME (BEAKER) 90 fL 79-95 (test code = 753) MEAN CORPUSCULAR HEMOGLOBIN 27.7 pg 25.6-32.2 (BEAKER) (test code = 751) MEAN CORPUSCULAR HEMOGLOBIN CONC 30.9 GM/DL 32.2-35.5 L (BEAKER) (test code = 752) RED CELL DISTRIBUTION WIDTH 21.0 % 11.7-14.4 H (BEAKER) (test code = 412) PLATELET COUNT (BEAKER) (test 119 K/CU MM 150-450 L code = 756) MEAN PLATELET VOLUME (BEAKER) 12.1 fL 9.4-12.3 (test code = 754) NUCLEATED RED BLOOD CELLS 0 /100 WBC 0-0 (BEAKER) (test code = 413) POCT-GLUCOSE [id number] 07:21:37 Test Item Value Reference Range Interpretation Comments POC-GLUCOSE METER 90 mg/dL 70-110 : TESTED A T [facility] 6720 (BEAKER) (test code = [place], 1538) 277[address]: Security Patrol Officer/Techni waylon ID = [id number] for Jamie Gage RAD, CHEST, 1 VIEW, NON [id number] 06:37:00Reason for exam:->Post-opShould this be performed at the bedside?->Yes [facility] GUANACODONATO : 1975 Sex: FFINAL REPORT RAD, CHEST, 1 VIEW, NON DEPT INDICATION: Post-op COMPARISON: Prior day's exam FINDINGS: Portable frontal view of the chest. IMPRESSION: Support Lines: Central catheter tip overlies the atriocaval junction. Lungs and pleura: Lungs are hypoinflated with new interstitial opacities, left greater than right, suggestive of mild volume overload. No significant pneumothorax. Heart and mediastinum: Normal contours. Stable surgical changes. Additional findings: None. Signed: Krystyna Altamirano Verified Date/Time: 01/07/2023 06:37:26 COMPREHENSIVE METABOLIC PANEL 2023-01-07 03:15:13 Test Item Value Reference Range Interpretation Comments TOTAL PROTEIN 4.2 gm/dL 6.0-8.3 L (BEAKER) (test code = 770) ALBUMIN (BEAKER) 2.4 g/dL 3.5-5.0 L (test code = 1145) ALKALINE 152 U/L 40-150 H PHOSPHATASE (BEAKER) (test code = 346) BILIRUBIN TOTAL 1.3 mg/dL 0.2-1.2 H (BEAKER) (test code = 377) SODIUM (BEAKER) 133 meq/L 136-145 L (test code = 381) POTASSIUM (BEAKER) 4.1 meq/L 3.5-5.1 (test code = 379) CHLORIDE (BEAKER) 100 meq/L 98-107 (test code = 382) CO2 (BEAKER) (test 21 meq/L 22-29 L code = 355) BLOOD UREA 37 mg/dL 7-21 H NITROGEN (BEAKER) (test code = 354) CREATININE 2.28 mg/dL 0.57-1.25 H (BEAKER) (test code = 358) GLUCOSE RANDOM 117 mg/dL 70-105 H (BEAKER) (test code = 652) CALCIUM (BEAKER) 7.4 mg/dL 8.4-10.2 L (test code = 697) AST (SGOT) 39 U/L 5-34 H (BEAKER) (test code = 353) ALT (SGPT) 56 U/L 6-55 H (BEAKER) (test code = 347) EGFR (BEAKER) 26 Interpretatio n of eGFR (test code = [...] not appl icable for dialysis patien ts Security Patrol Officer ID - [id number] 02:11:14 Test Item Value Reference Range Interpretation Comments PHOSPHORUS (BEAKER) (test code = 5.4 mg/dL 2.3-4.7 H 604) Security Patrol Officer ID - [id number] 02:11:13 Test Item Value Reference Range Interpretation Comments MAGNESIUM (BEAKER) (test code = 2.1 mg/dL 1.6-2.6 627) Security Patrol Officer ID - BSVANCOMYCIN LEVEL, [id number] 02:07:09 Test Item Value Reference Range Interpretation Comments VANCOMYCIN RANDOM (BEAKER) (test 15.5 ug/mL code = 523) Reference Range: No NormalsOperator ID - [id number] 01:59:49 Test Item Value Reference Range Interpretation Comments PROTIME (BEAKER) (test code = 14.1 seconds 11.9-14.2 759) INR (BEAKER) (test code = 370) 1.11 <=5.90 PARTIAL THROMBOPLASTIN TIME 51.5 seconds 22.5-36.0 H (BEAKER) (test code = 760) RECOMMENDED COUMADIN/WARFARIN INR THERAPY RANGESSTANDARD DOSE: 2.0 - 3.0 Includes: PROPHYLAXIS for venous thrombosis, systemic embolization; TREATMENT for venous thrombosis and/or pulmonary embolus.HIGH RISK: Target INR is 2.5-3.5 for patients with mechanical heart valves.[id number] 01:59:48 Test Item Value Reference Range Interpretation Comments PARTIAL THROMBOPLASTIN TIME 51.5 seconds 22.5-36.0 H (BEAKER) (test code = 760) [id number] 23:58:39 Test Item Value Reference Range Interpretation Comments PARTIAL THROMBOPLASTIN TIME 182.4 seconds 22.5-36.0 HH (BEAKER) (test code = 760) POCT-GLUCOSE [id number] 23:35:14 Test Item Value Reference Range Interpretation Comments POC-GLUCOSE METER 138 mg/dL 70-110 H : TESTED A T [facility] (BEAKER) (test code = [facility], 1538) 74308: Security Patrol Officer/Techni waylon ID = [id number] for Jamie Davis [id number] 18:20:03 Test Item Value Reference Range Interpretation Comments PARTIAL THROMBOPLASTIN TIME 79.7 seconds 22.5-36.0 H (BEAKER) (test code = 760) CBC W/PLT COUNT & AUTO [id number] 18:04:37 Test Item Value Reference Range Interpretation Comments WHITE BLOOD CELL COUNT (BEAKER) 16.9 K/ L 3.5-10.5 H (test code = 775) RED BLOOD CELL COUNT (BEAKER) 2.84 M/ L 3.93-5.22 L (test code = 761) HEMOGLOBIN (BEAKER) (test code = 8.0 GM/DL 11.2-15.7 L 410) HEMATOCRIT (BEAKER) (test code = 25.9 % 34.1-44.9 L 411) MEAN CORPUSCULAR VOLUME (BEAKER) 91 fL 79-95 (test code = 753) MEAN CORPUSCULAR HEMOGLOBIN 28.2 pg 25.6-32.2 (BEAKER) (test code = 751) MEAN CORPUSCULAR HEMOGLOBIN CONC 30.9 GM/DL 32.2-35.5 L (BEAKER) (test code = 752) RED CELL DISTRIBUTION WIDTH 21.1 % 11.7-14.4 H (BEAKER) (test code = 412) PLATELET COUNT (BEAKER) (test 132 K/CU MM 150-450 L code = 756) MEAN PLATELET VOLUME (BEAKER) 12.4 fL 9.4-12.3 H (test code = 754) NUCLEATED RED BLOOD CELLS 0 /100 WBC 0-0 (BEAKER) (test code = 413) NEUTROPHILS RELATIVE PERCENT 93 % (BEAKER) (test code = 429) LYMPHOCYTES RELATIVE PERCENT 4 % (BEAKER) (test code = 430) MONOCYTES RELATIVE PERCENT 1 % (BEAKER) (test code = 431) EOSINOPHILS RELATIVE PERCENT 0 % (BEAKER) (test code = 432) BASOPHILS RELATIVE PERCENT 0 % (BEAKER) (test code = 437) NEUTROPHILS ABSOLUTE COUNT 15.75 K/ L 1.56-6.13 H (BEAKER) (test code = 670) LYMPHOCYTES ABSOLUTE COUNT 0.66 K/ L 1.18-3.74 L (BEAKER) (test code = 414) MONOCYTES ABSOLUTE COUNT (BEAKER) 0.23 K/ L 0.24-0.36 L (test code = 415) EOSINOPHILS ABSOLUTE COUNT 0.02 K/ L 0.04-0.36 L (BEAKER) (test code = 416) BASOPHILS ABSOLUTE COUNT (BEAKER) 0.01 K/ L 0.01-0.08 (test code = 417) IMMATURE GRANULOCYTES-RELATIVE 1.20 % 0.00-1.00 H PERCENT (BEAKER) (test code = 2801) POCT-GLUCOSE [id number] 16:24:36 Test Item Value Reference Range Interpretation Comments POC-GLUCOSE METER 112 mg/dL 70-110 H : TESTED A T [facility] 6720 (BEEARL) (test code = ROZ Gutiérrez [facility], 1538) [id number]: Security Patrol Officer/Techni waylon ID = [id number] for EFRAIN BERMAN POCT-GLUCOSE [id number] 11:32:59 Test Item Value Reference Range Interpretation Comments POC-GLUCOSE METER 92 mg/dL 70-110 : TESTED A T [facility] 6720 (BEAKER) (test code = ROZ Gutiérrez [facility], 1538) [id number]: Security Patrol Officer/Techni waylon ID = [id number] for EFRAIN CARROLL [id number] 10:25:49 Test Item Value Reference Range Interpretation Comments PARTIAL THROMBOPLASTIN TIME 118.6 seconds 22.5-36.0 H (RHEA) (test code = 760) RAD, CHEST, 1 VIEW, NON [id number] 06:35:00Reason for exam:->Post-opShould this be performed at the bedside?->Yes [facility] : 1975 Sex: FFINAL REPORT RAD, CHEST, 1 VIEW, NON DEPT INDICATION: Post-op COMPARISON: Prior day's exam FINDINGS: Portable frontal view of the chest. IMPRESSION: Support Lines: Central catheter tip overlies the atriocaval junction. Lungs and pleura: Lungs are hypoinflated with new interstitial opacities, left greater than right, suggestive of mild volume overload. No significant pneumothorax. Heart and mediastinum: Normal contours. Stable surgical changes. Additional findings: None. Signed:Krystyna Altamiranoort Verified Date/Time: 01/06/2023 06:35:29 POCT-GLUCOSE [id number] 05:56:36 Test Item Value Reference Range Interpretation Comments POC-GLUCOSE METER 107 mg/dL 70-110 : TESTED A T [facility] 6720 (BEAKER) (test code = ROZ Gutiérrez [facility], 1538) [id number]: Security Patrol Officer/Techni waylon ID = [id number] for Eduard Lopez [id number] 05:04:00 Test Item Value Reference Range Interpretation Comments HAPTOGLOBIN (BEAKER) (test code = 236 mg/dL 14-258 366) Security Patrol Officer ID - BSVANCOMYCIN LEVEL, [id number] 05:01:58 Test Item Value Reference Range Interpretation Comments VANCOMYCIN RANDOM (BEAKER) (test 17.5 ug/mL code = 523) Reference Range: No NormalsOperator ID - BSRETICULOCYTE [id number] 04:52:00 Test Item Value Reference Range Interpretation Comments RETICULOCYTE COUNT PCT (BEAKER) (test 5.8 % 0.5-1.7 H code = 575) Security Patrol Officer ID - [id number] METABOLIC [id number] 04:49:50 Test Item Value Reference Range Interpretation Comments TOTAL PROTEIN 4.4 gm/dL 6.0-8.3 L (BEAKER) (test code = 770) ALBUMIN (BEAKER) 2.3 g/dL 3.5-5.0 L (test code = 1145) ALKALINE 181 U/L 40-150 H PHOSPHATASE (BEAKER) (test code = 346) BILIRUBIN TOTAL 1.2 mg/dL 0.2-1.2 (BEAKER) (test code = 377) SODIUM (BEAKER) 136 meq/L 136-145 (test code = 381) POTASSIUM (BEAKER) 4.1 meq/L 3.5-5.1 (test code = 379) CHLORIDE (BEAKER) 101 meq/L 98-107 (test code = 382) CO2 (BEAKER) (test 24 meq/L 22-29 code = 355) BLOOD UREA 26 mg/dL 7-21 H NITROGEN (BEAKER) (test code = 354) CREATININE 1.70 mg/dL 0.57-1.25 H (BEAKER) (test code = 358) GLUCOSE RANDOM 96 mg/dL 70-105 (BEAKER) (test code = 652) CALCIUM (BEAKER) 7.9 mg/dL 8.4-10.2 L (test code = 697) AST (SGOT) 51 U/L 5-34 H (BEAKER) (test code = 353) ALT (SGPT) 64 U/L 6-55 H (BEAKER) (test code = 347) EGFR (BEAKER) 37 Interpretatio n of eGFR (test code = [...] not appl icable for dialysis patien ts Security Patrol Officer ID - MARIOLACTATE DEHYDROGENASE (LDH)2023-01-06 04:48:57 Test Item Value Reference Range Interpretation Comments LACTATE DEHYDROGENASE (BEAKER) (test 460 U/L 125-220 H code = 635) Security Patrol Officer ID - [id number] 04:48:56 Test Item Value Reference Range Interpretation Comments PHOSPHORUS (BEAKER) (test code = 4.4 mg/dL 2.3-4.7 604) Security Patrol Officer ID - [id number] 04:48:55 Test Item Value Reference Range Interpretation Comments MAGNESIUM (BEAKER) (test code = 2.1 mg/dL 1.6-2.6 627) Security Patrol Officer ID - MARIOPT/[id number] 04:34:16 Test Item Value Reference Range Interpretation Comments PROTIME (BEAKER) (test code = 14.4 seconds 11.9-14.2 H 759) INR (BEAKER) (test code = 370) 1.19 <=5.90 PARTIAL THROMBOPLASTIN TIME 100.5 seconds 22.5-36.0 H (BEAKER) (test code = 760) RECOMMENDED COUMADIN/WARFARIN INR THERAPY RANGESSTANDARD DOSE: 2.0 - 3.0 Includes: PROPHYLAXIS for venous thrombosis, systemic embolization; TREATMENT for venous thrombosis and/or pulmonary embolus.HIGH RISK: Target INR is 2.5-3.5 for patients with mechanical heart valves.[id number] 04:22:05 Test Item Value Reference Range Interpretation Comments FIBRINOGEN LEVEL (BEAKER) (test 501 mg/dl 225-434 H code = 658) CBC W/PLT COUNT & AUTO [id number] 04:15:27 Test Item Value Reference Range Interpretation Comments WHITE BLOOD CELL COUNT (BEAKER) 16.9 K/ L 3.5-10.5 H (test code = 775) RED BLOOD CELL COUNT (BEAKER) 2.72 M/ L 3.93-5.22 L (test code = 761) HEMOGLOBIN (BEAKER) (test code = 7.6 GM/DL 11.2-15.7 L 410) HEMATOCRIT (BEAKER) (test code = 24.8 % 34.1-44.9 L 411) MEAN CORPUSCULAR VOLUME (BEAKER) 91 fL 79-95 (test code = 753) MEAN CORPUSCULAR HEMOGLOBIN 27.9 pg 25.6-32.2 (BEAKER) (test code = 751) MEAN CORPUSCULAR HEMOGLOBIN CONC 30.6 GM/DL 32.2-35.5 L (BEAKER) (test code = 752) RED CELL DISTRIBUTION WIDTH 20.8 % 11.7-14.4 H (BEAKER) (test code = 412) PLATELET COUNT (BEAKER) (test 117 K/CU MM 150-450 L code = 756) MEAN PLATELET VOLUME (BEAKER) 12.3 fL 9.4-12.3 (test code = 754) NUCLEATED RED BLOOD CELLS 0 /100 WBC 0-0 (BEAKER) (test code = 413) NEUTROPHILS RELATIVE PERCENT 95 % (BEAKER) (test code = 429) LYMPHOCYTES RELATIVE PERCENT 2 % (BEAKER) (test code = 430) MONOCYTES RELATIVE PERCENT 2 % (BEAKER) (test code = 431) EOSINOPHILS RELATIVE PERCENT 0 % (BEAKER) (test code = 432) BASOPHILS RELATIVE PERCENT 0 % (BEAKER) (test code = 437) NEUTROPHILS ABSOLUTE COUNT 16.02 K/ L 1.56-6.13 H (BEAKER) (test code = 670) LYMPHOCYTES ABSOLUTE COUNT 0.40 K/ L 1.18-3.74 L (BEAKER) (test code = 414) MONOCYTES ABSOLUTE COUNT (BEAKER) 0.26 K/ L 0.24-0.36 (test code = 415) EOSINOPHILS ABSOLUTE COUNT 0.02 K/ L 0.04-0.36 L (BEAKER) (test code = 416) BASOPHILS ABSOLUTE COUNT (BEAKER) 0.02 K/ L 0.01-0.08 (test code = 417) IMMATURE GRANULOCYTES-RELATIVE 0.90 % 0.00-1.00 PERCENT (BEAKER) (test code = 2801) POCT-GLUCOSE [id number] 00:42:14 Test Item Value Reference Range Interpretation Comments POC-GLUCOSE METER 95 mg/dL 70-110 : TESTED A T [facility] 6720 (BEAKER) (test code = [facility], 1538) [address]: Security Patrol Officer/Techni waylon ID = [id number] for Eduard Torres [id number] 23:27:21 Test Item Value Reference Range Interpretation Comments PARTIAL THROMBOPLASTIN TIME 32.6 seconds 22.5-36.0 (BEAKER) (test code = 760) POCT-GLUCOSE [id number] 16:33:19 Test Item Value Reference Range Interpretation Comments POC-GLUCOSE METER 91 mg/dL 70-110 : [facility] (test code = [facility], 1538) [id number]: Security Patrol Officer/Techni waylon ID = [id number] for EFRAIN CARROLL RAD, CHEST, 1 VIEW, NON [id number] 16:20:00Reason for exam:->RIJ HD line placementShould this be performed at the bedside?->Yes [facility] 1975 Sex: FFINAL REPORT Chest, 1 view, 01/05/2023 4:00 PM. History: Right IJ line placement. Comparison: X-ray from earlier today. Discussion: The cardiac silhouette is stable. Bilateral perihilar opacities are present. There is no pneumothorax or pleural effusion. Right IJ nontunneled dialysis catheter is present terminating near the cavoatrial junction. The soft tissues and osseous structures are intact. IMPRESSION: Vascular congestion. No evidence of pneumothorax. Signed: Tori Castillo Verified Date/Time: 01/05/2023 16:20:59 Reading Location: [facility] Reading Room [id number] 15:39:10 Test Item Value Reference Range Interpretation Comments PARTIAL THROMBOPLASTIN TIME 29.3 seconds 22.5-36.0 (BEAKER) (test code = 760) POCT-GLUCOSE [id number] 11:24:17 Test Item Value Reference Range Interpretation Comments POC-GLUCOSE METER 106 mg/dL 70-110 : TESTED A T [facility] (test code = [place], 1538) [address]: Security Patrol Officer/Techni waylon ID = [id number] for HILLARY SUZETTEEFRAIN LANIER ANAEROBIC [id number] 11:12:00 Test Item Value Reference Range Interpretation Comments CULTURE (BEAKER) (test No anaerobes isolated code = 1095) CBC W/PLT COUNT & AUTO [id number] 10:02:39 Test Item Value Reference Range Interpretation Comments WHITE BLOOD CELL COUNT (BEAKER) 14.6 K/ L 3.5-10.5 H (test code = 775) RED BLOOD CELL COUNT (BEAKER) 2.70 M/ L 3.93-5.22 L (test code = 761) HEMOGLOBIN (BEAKER) (test code = 7.7 GM/DL 11.2-15.7 L 410) HEMATOCRIT (BEAKER) (test code = 25.0 % 34.1-44.9 L 411) MEAN CORPUSCULAR VOLUME (BEAKER) 93 fL 79-95 (test code = 753) MEAN CORPUSCULAR HEMOGLOBIN 28.5 pg 25.6-32.2 (BEAKER) (test code = 751) MEAN CORPUSCULAR HEMOGLOBIN CONC 30.8 GM/DL 32.2-35.5 L (BEAKER) (test code = 752) RED CELL DISTRIBUTION WIDTH 20.4 % 11.7-14.4 H (BEAKER) (test code = 412) PLATELET COUNT (BEAKER) (test 131 K/CU MM 150-450 L code = 756) MEAN PLATELET VOLUME (BEAKER) 12.8 fL 9.4-12.3 H (test code = 754) NUCLEATED RED BLOOD CELLS 0 /100 WBC 0-0 (BEAKER) (test code = 413) NEUTROPHILS RELATIVE PERCENT 95 % (BEAKER) (test code = 429) LYMPHOCYTES RELATIVE PERCENT 2 % (BEAKER) (test code = 430) MONOCYTES RELATIVE PERCENT 1 % (BEAKER) (test code = 431) EOSINOPHILS RELATIVE PERCENT 0 % (BEAKER) (test code = 432) BASOPHILS RELATIVE PERCENT 0 % (BEAKER) (test code = 437) NEUTROPHILS ABSOLUTE COUNT 13.91 K/ L 1.56-6.13 H (BEAKER) (test code = 670) LYMPHOCYTES ABSOLUTE COUNT 0.34 K/ L 1.18-3.74 L (BEAKER) (test code = 414) MONOCYTES ABSOLUTE COUNT (BEAKER) 0.21 K/ L 0.24-0.36 L (test code = 415) EOSINOPHILS ABSOLUTE COUNT 0.01 K/ L 0.04-0.36 L (BEAKER) (test code = 416) BASOPHILS ABSOLUTE COUNT (BEAKER) 0.02 K/ L 0.01-0.08 (test code = 417) IMMATURE GRANULOCYTES-RELATIVE 0.70 % 0.00-1.00 PERCENT (BEAKER) (test code = 2801) VANCOMYCIN LEVEL, [id number] 09:09:54 Test Item Value Reference Range Interpretation Comments VANCOMYCIN RANDOM (BEAKER) (test 17.4 ug/mL code = 523) Reference Range: No NormalsOperator ID - NEELAM [id number] 09:05:09 Test Item Value Reference Range Interpretation Comments PARTIAL THROMBOPLASTIN TIME 33.0 seconds 22.5-36.0 (BEAKER) (test code = 760) RAD, CHEST, 1 VIEW, NON [id number] 07:11:00Reason for exam:->Post-opShould this be performed at the bedside?->Yes [facility] 1975 Sex: FFINAL REPORT RAD, CHEST, 1 VIEW, NON DEPT INDICATION: Post-op COMPARISON: Prior day's exam FINDINGS: Portable frontal view of the chest. IMPRESSION: Support Lines: Central catheter tip overlies the atriocaval junction. Lungs and pleura: Lungs are hypoinflated but otherwise clear.No significant pneumothorax. Heart and mediastinum: Normal contours. Stable surgical changes. Additional findings: None. Signed: Krystyna Altamirano Verified Date/Time: 01/05/2023 07:11:30 RETICULOCYTE [id number] 06:21:35 Test Item Value Reference Range Interpretation Comments RETICULOCYTE COUNT PCT (BEEARL) (test 7.8 % 0.5-1.7 H code = 575) Security Patrol Officer ID - [id number] ID - [id number]-GLUCOSE [id number] 05:56:00 Test Item Value Reference Range Interpretation Comments POC-GLUCOSE METER 72 mg/dL 70-110 : TESTED A T [facility] 6720 (BEAKER) (test code = [place], 1538) [address]: Security Patrol Officer/Techni waylon ID = [id number] for Marychuy Woodson COMPREHENSIVE METABOLIC [id number] 04:50:10 Test Item Value Reference Range Interpretation Comments TOTAL PROTEIN 4.1 gm/dL 6.0-8.3 L (BEAKER) (test code = 770) ALBUMIN (BEAKER) 2.2 g/dL 3.5-5.0 L (test code = 1145) ALKALINE 160 U/L 40-150 H PHOSPHATASE (BEAKER) (test code = 346) BILIRUBIN TOTAL 1.2 mg/dL 0.2-1.2 (BEAKER) (test code = 377) SODIUM (BEAKER) 135 meq/L 136-145 L (test code = 381) POTASSIUM (BEAKER) 4.4 meq/L 3.5-5.1 (test code = 379) CHLORIDE (BEAKER) 105 meq/L 98-107 (test code = 382) CO2 (BEAKER) (test 20 meq/L 22-29 L code = 355) BLOOD UREA 42 mg/dL 7-21 H NITROGEN (BEAKER) (test code = 354) CREATININE 2.40 mg/dL 0.57-1.25 H (BEAKER) (test code = 358) GLUCOSE RANDOM 86 mg/dL 70-105 (BEAKER) (test code = 652) CALCIUM (BEAKER) 8.0 mg/dL 8.4-10.2 L (test code = 697) AST (SGOT) 48 U/L 5-34 H (BEAKER) (test code = 353) ALT (SGPT) 48 U/L 6-55 (BEAKER) (test code = 347) EGFR (BEAKER) 24 Interpretatio n of eGFR (test code = [...] not appl icable for dialysis patien ts Security Patrol Officer ID - NEELAM WLACTATE DEHYDROGENASE (LDH)2023-01-05 04:49:04 Test Item Value Reference Range Interpretation Comments LACTATE DEHYDROGENASE (BEAKER) (test 397 U/L 125-220 H code = 635) Security Patrol Officer ID - NEELAM [id number] 04:49:03 Test Item Value Reference Range Interpretation Comments PHOSPHORUS (BEAKER) (test code = 5.1 mg/dL 2.3-4.7 H 604) Security Patrol Officer ID - NEELAM [id number] 04:49:02 Test Item Value Reference Range Interpretation Comments MAGNESIUM (BEAKER) (test code = 2.3 mg/dL 1.6-2.6 627) Security Patrol Officer ID - NEELAM [id number] 04:41:39 Test Item Value Reference Range Interpretation Comments HAPTOGLOBIN (BEAKER) (test code = 229 mg/dL 14-258 366) Security Patrol Officer ID - [id number] 04:36:50 Test Item Value Reference Range Interpretation Comments PROTIME (BEAKER) (test code = 14.9 seconds 11.9-14.2 H 759) INR (BEAKER) (test code = 370) 1.20 <=5.90 PARTIAL THROMBOPLASTIN TIME 58.4 seconds 22.5-36.0 H (BEAKER) (test code = 760) RECOMMENDED COUMADIN/WARFARIN INR THERAPY RANGESSTANDARD DOSE: 2.0 - 3.0 Includes: PROPHYLAXIS for venous thrombosis, systemic embolization; TREATMENT for venous thrombosis and/or pulmonary embolus.HIGH RISK: Target INR is 2.5-3.5 for patients with mechanical heart valves.[id number] 04:35:52 Test Item Value Reference Range Interpretation Comments FIBRINOGEN LEVEL (BEAKER) (test 420 mg/dl 225-434 code = 658) CBC W/PLT COUNT & AUTO [id number] 04:28:43 Test Item Value Reference Range Interpretation Comments WHITE BLOOD CELL COUNT (BEAKER) 14.7 K/ L 3.5-10.5 H (test code = 775) RED BLOOD CELL COUNT (BEAKER) 2.18 M/ L 3.93-5.22 L (test code = 761) HEMOGLOBIN (BEAKER) (test code = 6.3 GM/DL 11.2-15.7 L 410) HEMATOCRIT (BEAKER) (test code = 20.7 % 34.1-44.9 L 411) MEAN CORPUSCULAR VOLUME (BEAKER) 95 fL 79-95 (test code = 753) MEAN CORPUSCULAR HEMOGLOBIN 28.9 pg 25.6-32.2 (BEAKER) (test code = 751) MEAN CORPUSCULAR HEMOGLOBIN CONC 30.4 GM/DL 32.2-35.5 L (BEAKER) (test code = 752) RED CELL DISTRIBUTION WIDTH 20.1 % 11.7-14.4 H (BEAKER) (test code = 412) PLATELET COUNT (BEAKER) (test 127 K/CU MM 150-450 L code = 756) MEAN PLATELET VOLUME (BEAKER) 12.4 fL 9.4-12.3 H (test code = 754) NUCLEATED RED BLOOD CELLS 1 /100 WBC 0-0 H (BEAKER) (test code = 413) NEUTROPHILS RELATIVE PERCENT 92 % (BEAKER) (test code = 429) LYMPHOCYTES RELATIVE PERCENT 4 % (BEAKER) (test code = 430) MONOCYTES RELATIVE PERCENT 2 % (BEAKER) (test code = 431) EOSINOPHILS RELATIVE PERCENT 0 % (BEAKER) (test code = 432) BASOPHILS RELATIVE PERCENT 0 % (BEAKER) (test code = 437) NEUTROPHILS ABSOLUTE COUNT 13.58 K/ L 1.56-6.13 H (BEAKER) (test code = 670) LYMPHOCYTES ABSOLUTE COUNT 0.63 K/ L 1.18-3.74 L (BEAKER) (test code = 414) MONOCYTES ABSOLUTE COUNT (BEAKER) 0.35 K/ L 0.24-0.36 (test code = 415) EOSINOPHILS ABSOLUTE COUNT 0.01 K/ L 0.04-0.36 L (BEAKER) (test code = 416) BASOPHILS ABSOLUTE COUNT (BEAKER) 0.01 K/ L 0.01-0.08 (test code = 417) IMMATURE GRANULOCYTES-RELATIVE 1.00 % 0.00-1.00 PERCENT (BEAKER) (test code = 2801) [id number] 01:41:59 Test Item Value Reference Range Interpretation Comments PARTIAL THROMBOPLASTIN TIME 74.0 seconds 22.5-36.0 H (BEAKER) (test code = 760) POCT-GLUCOSE [id number] 01:16:48 Test Item Value Reference Range Interpretation Comments POC-GLUCOSE METER 83 mg/dL 70-110 : TESTED A T [facility] 6720 (BEAKER) (test code = ROZ Gutiérrez [place], 1538) [address]: Security Patrol Officer/Techni waylon ID = [id number] for Danita Dominguez POCT-GLUCOSE [id number] 21:54:53 Test Item Value Reference Range Interpretation Comments POC-GLUCOSE METER 95 mg/dL 70-110 : TESTED A T [facility] 6720 (BEAKER) (test code = ROZ Gutiérrez [facility], 1538) 114[address]: Security Patrol Officer/Techni waylon ID = [id number] for Marychuy Woodson BASIC METABOLIC [id number] 20:21:52 Test Item Value Reference Range Interpretation Comments SODIUM (BEAKER) 133 meq/L 136-145 L (test code = 381) POTASSIUM 4.8 meq/L 3.5-5.1 Specimen modera tely (BEAKER) (test hemolyzed code = 379) CHLORIDE (BEAKER) 104 meq/L 98-107 (test code = 382) CO2 (BEAKER) 19 meq/L 22-29 L (test code = 355) BLOOD UREA 38 mg/dL 7-21 H NITROGEN (BEAKER) (test code = 354) CREATININE 2.20 mg/dL 0.57-1.25 H Specimen modera tely (BEAKER) (test hemolyzed code = 358) GLUCOSE RANDOM 80 mg/dL 70-105 (BEAKER) (test code = 652) CALCIUM (BEAKER) 7.9 mg/dL 8.4-10.2 L (test code = 697) EGFR (BEAKER) 27 Interpretatio n of eGFR (test code = [...] not appl icable for dialysis patien ts Security Patrol Officer ID - [id number] 20:21:24 Test Item Value Reference Range Interpretation Comments PHOSPHORUS (BEAKER) 4.6 mg/dL 2.3-4.7 Specimen moderately (test code = 604) hemolyzed Security Patrol Officer ID - [id number] 20:21:23 Test Item Value Reference Range Interpretation Comments MAGNESIUM (BEAKER) 2.3 mg/dL 1.6-2.6 Specimen moderately (test code = 627) hemolyzed Security Patrol Officer ID - DBCALCIUM, [id number] 19:59:35 Test Item Value Reference Range Interpretation Comments CALCIUM IONIZED (BEAKER) (test 1.07 mmol/L 1.12-1.27 L code = 698) PH, BLOOD (BEAKER) (test code = 7.46 1810) [id number] 18:26:49 Test Item Value Reference Range Interpretation Comments PARTIAL THROMBOPLASTIN TIME 40.0 seconds 22.5-36.0 H (BEAKER) (test code = 760) POCT-GLUCOSE [id number] 17:41:07 Test Item Value Reference Range Interpretation Comments POC-GLUCOSE METER 80 mg/dL 70-110 : TESTED A T [facility] 6720 (BEAKER) (test code = [place], 1538) [address]: Security Patrol Officer/Techni waylon ID = [id number] for Laure Catalan [id number] 11:43:48 Test Item Value Reference Range Interpretation Comments PARTIAL THROMBOPLASTIN TIME 29.3 seconds 22.5-36.0 (BEAKER) (test code = 760) PLATELET [id number] 11:40:36 Test Item Value Reference Range Interpretation Comments PLATELET COUNT (BEAKER) (test 142 K/CU MM 150-450 L code = 756) Security Patrol Officer ID - [id number] ID - [id number]-GLUCOSE [id number] 11:25:54 Test Item Value Reference Range Interpretation Comments POC-GLUCOSE METER 80 mg/dL 70-110 : TESTED A T [facility] 6720 (BEAKER) (test code = [place], 1538) [address]: Security Patrol Officer/Techni waylon ID = [id number] for Laure Catalan (CELLAVISION MANUAL DIFF)2023-01-04 07:03:39 Test Item Value Reference Range Interpretation Comments NEUTROPHILS - REL 96 % (CELLAVISION)(BEAKER) (test code = 2816) LYMPHOCYTES - REL 2 % (CELLAVISION)(BEAKER) (test code = 2817) METAMYELOCYTES - REL 1 % 0-0 H (CELLAVISION)(BEAKER) (test code = 2821) BANDS - REL (CELLAVISION)(BEAKER) 1 % 0-10 (test code = 2826) NEUTROPHILS - ABS 16.03 K/ul 1.56-6.13 H (CELLAVISION)(BEAKER) (test code = 2830) LYMPHOCYTES - ABS 0.33 K/ul 1.18-3.74 L (CELLAVISION)(BEAKER) (test code = 2831) METAMYELOCYTES - ABS 0.17 K/uL 0.00-0.00 H (CELLAVISION)(BEAKER) (test code = 2836) BANDS - ABS (CELLAVISION)(BEAKER) 0.17 K/uL 0.00-0.80 (test code = 2840) TOTAL COUNTED (BEAKER) (test code 100 = 1351) MANUAL NRBC PER 100 CELLS 2 /100 WBC 0-0 H (BEAKER) (test code = 1353) SMUDGE CELLS (BEAKER) (test code Present = 1371) GIANT PLATELETS (BEAKER) (test Present code = 313) POLYCHROMATOPHILLIC RBCS(BEAKER) 3+ many (test code = 478) ANISOCYTOSIS (BEAKER) (test code 2+ moderate = 961) MICROCYTES (BEAKER) (test code = 2+ moderate 965) POIKILOCYTES (BEAKER) (test code 1+ few = 966) SPHEROCYTES (BEAKER) (test code = 1+ few 768) ELLIPTOCYTES (BEAKER) (test code 1+ few = 962) ARTIFACT (CELLAVISION)(BEAKER) Present (test code = 3432) PLATELET CONCENTRATION Decreased (CELLAVISION)(BEAKER) (test code = 3438) Security Patrol Officer ID - [id number] ID - saray Chen comments: Slide comments:CBC W/PLT COUNT & AUTO [id number] 07:03:37 Test Item Value Reference Range Interpretation Comments WHITE BLOOD CELL COUNT (BEAKER) 16.7 K/ L 3.5-10.5 H (test code = 775) RED BLOOD CELL COUNT (BEAKER) 2.44 M/ L 3.93-5.22 L (test code = 761) HEMOGLOBIN (BEAKER) (test code = 7.1 GM/DL 11.2-15.7 L 410) HEMATOCRIT (BEAKER) (test code = 22.9 % 34.1-44.9 L 411) MEAN CORPUSCULAR VOLUME (BEAKER) 94 fL 79-95 (test code = 753) MEAN CORPUSCULAR HEMOGLOBIN 29.1 pg 25.6-32.2 (BEAKER) (test code = 751) MEAN CORPUSCULAR HEMOGLOBIN CONC 31.0 GM/DL 32.2-35.5 L (BEAKER) (test code = 752) RED CELL DISTRIBUTION WIDTH 20.0 % 11.7-14.4 H (BEAKER) (test code = 412) PLATELET COUNT (BEAKER) (test 128 K/CU MM 150-450 L code = 756) MEAN PLATELET VOLUME (BEAKER) 11.9 fL 9.4-12.3 (test code = 754) NUCLEATED RED BLOOD CELLS 1 /100 WBC 0-0 H (BEAKER) (test code = 413) RETICULOCYTE [id number] 06:32:14 Test Item Value Reference Range Interpretation Comments RETICULOCYTE COUNT PCT (BEAKER) (test 8.1 % 0.5-1.7 H code = 575) Security Patrol Officer ID - [id number] ID - [id number], CHEST, 1 VIEW, NON [id number] 06:24:00Reason for exam:->Post-opShould this be performed at the bedside?->Yes[facility] : 1975 Sex: FFINAL REPORT RAD, CHEST, 1 VIEW, NON DEPT INDICATION: Post-op COMPARISON: Prior day's exam FINDINGS: Portable frontal view of the chest. IMPRESSION: Support Lines: NG tube descends below the diaphragm. Central catheter tip overlies the atriocaval junction. Lungs and pleura: Platelike atelectasis within the right midlung and airspace opacities are increased, concerning for slight volume overload. No significant pneumothorax. Heart and mediastinum: Normal contours. Stable surgical changes. Additional findings: None. Signed: Krystyna Altamirano Verified Date/Time: 01/04/2023 06:24:09 /[id number] 06:02:48 Test Item Value Reference Range Interpretation Comments PROTIME (BEAKER) (test code = 14.5 seconds 11.9-14.2 H 759) INR (BEAKER) (test code = 370) 1.20 <=5.90 PARTIAL THROMBOPLASTIN TIME 27.8 seconds 22.5-36.0 (BEAKER) (test code = 760) RECOMMENDED COUMADIN/WARFARIN INR THERAPY RANGESSTANDARD DOSE: 2.0 - 3.0 Includes: PROPHYLAXIS for venous thrombosis, systemic embolization; TREATMENT for venous thrombosis and/or pulmonary embolus.HIGH RISK: Target INR is 2.5-3.5 for patients with mechanical heart valves.POCT-GLUCOSE [id number] 06:01:49 Test Item Value Reference Range Interpretation Comments POC-GLUCOSE METER 87 mg/dL 70-110 : TESTED A T [facility] 6720 (BEAKER) (test code = [place], 1538) [address]: Security Patrol Officer/Techni waylon ID = [id number] for Volodymyr Dickinson [id number] 05:58:32 Test Item Value Reference Range Interpretation Comments FIBRINOGEN LEVEL (BEAKER) (test 420 mg/dl 225-434 code = 658) COMPREHENSIVE METABOLIC [id number] 05:54:37 Test Item Value Reference Range Interpretation Comments TOTAL PROTEIN 4.1 gm/dL 6.0-8.3 L (BEAKER) (test code = 770) ALBUMIN (BEAKER) 2.3 g/dL 3.5-5.0 L (test code = 1145) ALKALINE 144 U/L 40-150 PHOSPHATASE (BEAKER) (test code = 346) BILIRUBIN TOTAL 1.4 mg/dL 0.2-1.2 H (BEAKER) (test code = 377) SODIUM (BEAKER) 133 meq/L 136-145 L (test code = 381) POTASSIUM (BEAKER) 4.5 meq/L 3.5-5.1 (test code = 379) CHLORIDE (BEAKER) 103 meq/L 98-107 (test code = 382) CO2 (BEAKER) (test 20 meq/L 22-29 L code = 355) BLOOD UREA 44 mg/dL 7-21 H NITROGEN (BEAKER) (test code = 354) CREATININE 2.60 mg/dL 0.57-1.25 H (BEAKER) (test code = 358) GLUCOSE RANDOM 94 mg/dL 70-105 (BEAKER) (test code = 652) CALCIUM (BEAKER) 8.0 mg/dL 8.4-10.2 L (test code = 697) AST (SGOT) 35 U/L 5-34 H (BEAKER) (test code = 353) ALT (SGPT) 34 U/L 6-55 (BEAKER) (test code = 347) EGFR (BEAKER) 22 Interpretatio n of eGFR (test code = 1092) mL/min/1.[address] age Description sq m Result G1 Veronica l or high >=90 G2 Mildly decreased 60-89 G3a Mild ly to moderately 45-5 9 G3b Moderately to [...] not appl icable for dialysis patien ts Security Patrol Officer ID - DBLACTATE DEHYDROGENASE (LDH)[id number] 05:49:26 Test Item Value Reference Range Interpretation Comments LACTATE DEHYDROGENASE (BEAKER) (test 389 U/L 125-220 H code = 635) Security Patrol Officer ID - [id number] 05:49:25 Test Item Value Reference Range Interpretation Comments PHOSPHORUS (BEAKER) (test code = 5.5 mg/dL 2.3-4.7 H 604) Security Patrol Officer ID - [id number] 05:49:24 Test Item Value Reference Range Interpretation Comments MAGNESIUM (BEAKER) (test code = 2.4 mg/dL 1.6-2.6 627) Security Patrol Officer ID - [id number] 05:47:42 Test Item Value Reference Range Interpretation Comments HAPTOGLOBIN (BEAKER) (test code = 218 mg/dL 14-258 366) Security Patrol Officer ID - DBVANCOMYCIN LEVEL, [id number] 05:45:26 Test Item Value Reference Range Interpretation Comments VANCOMYCIN RANDOM (BEAKER) (test 23.0 ug/mL code = 523) Reference Range: No NormalsOperator ID - DBPOCT-GLUCOSE [id number] 01:42:50 Test Item Value Reference Range Interpretation Comments POC-GLUCOSE METER 105 mg/dL 70-110 : [facility] ([facility]ER[facility] (test code = [place], 1538) [id number]: Security Patrol Officer/Techni waylon ID = [id number] for Marychuy Flores BASIC METABOLIC [id number] 22:37:12 Test Item Value Reference Range Interpretation Comments SODIUM (BEAKER) 129 meq/L 136-145 L (test code = 381) POTASSIUM 4.6 meq/L 3.5-5.1 (BEAKER) (test code = 379) CHLORIDE (BEAKER) 101 meq/L 98-107 (test code = 382) CO2 (BEAKER) 17 meq/L 22-29 L (test code = 355) BLOOD UREA 48 mg/dL 7-21 H NITROGEN (BEAKER) (test code = 354) CREATININE 2.83 mg/dL 0.57-1.25 H (BEAKER) (test code = 358) GLUCOSE RANDOM 108 mg/dL 70-105 H (BEAKER) (test code = 652) CALCIUM (BEAKER) 7.9 mg/dL 8.4-10.2 L (test code = 697) EGFR (BEAKER) 20 Interpretatio n of eGFR (test code = [...] not appl icable for dialysis patien ts Security Patrol Officer ID - [id number] 22:33:34 Test Item Value Reference Range Interpretation Comments PHOSPHORUS (BEAKER) (test code = 6.3 mg/dL 2.3-4.7 H 604) Security Patrol Officer ID - [id number] 22:33:33 Test Item Value Reference Range Interpretation Comments MAGNESIUM (BEAKER) (test code = 2.4 mg/dL 1.6-2.6 627) Security Patrol Officer ID - DBCALCIUM, [id number] 22:05:55 Test Item Value Reference Range Interpretation Comments CALCIUM IONIZED (BEAKER) (test 1.09 mmol/L 1.12-1.27 L code = 698) PH, BLOOD (BEAKER) (test code = 7.39 1810) POCT-GLUCOSE [id number] 17:30:43 Test Item Value Reference Range Interpretation Comments POC-GLUCOSE METER 115 mg/dL 70-110 H : TESTED A T [facility] 6720 (BEAKER) (test code = [place], 1538) [id number]: Security Patrol Officer/Techni waylon ID = [id number] for DE KAMINI (V), JERO RAD, CHEST, 1 VIEW, NON [id number] 16:50:00Reason for exam:->NG tube placement confirmationShould this be performed at the bedside?->Yes [facility] : 1975 Sex: FFINAL REPORT Exam: RAD, CHEST, 1 VIEW, NON DEPTDate: 01/03/2023 4:49 PM Indication:NG tube placement confirmationComparison: Chest radiograph 01/03/2023. IMPRESSION: Lines/Tubes:Enteric tube courses below the level of the diaphragm with the distal tip out of field of view. Additional support devices are unchanged. Lungs and Pleura :Low lung volumes with bronchovascular crowding. No pneumothorax. Left retrocardiac opacity. Heart/Mediastinum:The cardiomediastinal silhouette is normal in size and contour. Bones/Soft Tissues: No acute osseous abnormality. Upper abdomen: Unremarkable. Signed: Remington Berrios [facility] Verified Date/Time: 01/03/2023 16:50:15 (CELLAVISION MANUAL DIFF)2023-01-03 14:50:37 Test Item Value Reference Range Interpretation Comments NEUTROPHILS - REL 92 % (CELLAVISION)(BEAKER) (test code = 2816) LYMPHOCYTES - REL 1 % (CELLAVISION)(BEAKER) (test code = 2817) MONOCYTES - REL 1 % (CELLAVISION)(BEAKER) (test code = 2818) MYELOCYTES - REL 1 % 0-0 H (CELLAVISION)(BEAKER) (test code = 2822) BANDS - REL (CELLAVISION)(BEAKER) 5 % 0-10 (test code = 2826) NEUTROPHILS - ABS 16.28 K/ul 1.56-6.13 H (CELLAVISION)(BEAKER) (test code = 2830) LYMPHOCYTES - ABS 0.18 K/ul 1.18-3.74 L (CELLAVISION)(BEAKER) (test code = 2831) MONOCYTES - ABS 0.18 K/uL 0.24-0.36 L (CELLAVISION)(BEAKER) (test code = 2832) MYELOCYTES-ABS 0.18 K/uL 0.00-0.00 H (CELLAVISION)(BEAKER) (test code = 2837) BANDS - ABS (CELLAVISION)(BEAKER) 0.89 K/uL 0.00-0.80 H (test code = 2840) TOTAL COUNTED (BEAKER) (test code 100 = 1351) MANUAL NRBC PER 100 CELLS 1 /100 WBC 0-0 H (BEAKER) (test code = 1353) WBC MORPHOLOGY (BEAKER) (test Normal code = 487) PLT MORPHOLOGY (BEAKER) (test Normal code = 486) POLYCHROMATOPHILLIC RBCS(BEAKER) 3+ many (test code = 478) ANISOCYTOSIS (BEAKER) (test code 2+ moderate = 961) MICROCYTES (BEAKER) (test code = 2+ moderate 965) POIKILOCYTES (BEAKER) (test code 3+ many = 966) OVALOCYTES (BEAKER) (test code = 2+ moderate 477) ARTIFACT (CELLAVISION)(BEAKER) Present (test code = 3432) PLATELET CONCENTRATION Adequate (CELLAVISION)(BEAKER) (test code = 3438) Security Patrol Officer ID - Santa OverholtUser comments: Slide comments:CBC W/PLT COUNT & AUTO [id number] 14:50:35 Test Item Value Reference Range Interpretation Comments WHITE BLOOD CELL COUNT (BEAKER) 17.7 K/ L 3.5-10.5 H (test code = 775) RED BLOOD CELL COUNT (BEAKER) 2.66 M/ L 3.93-5.22 L (test code = 761) HEMOGLOBIN (BEAKER) (test code = 7.7 GM/DL 11.2-15.7 L 410) HEMATOCRIT (BEAKER) (test code = 25.1 % 34.1-44.9 L 411) MEAN CORPUSCULAR VOLUME (BEAKER) 94 fL 79-95 (test code = 753) MEAN CORPUSCULAR HEMOGLOBIN 28.9 pg 25.6-32.2 (BEAKER) (test code = 751) MEAN CORPUSCULAR HEMOGLOBIN CONC 30.7 GM/DL 32.2-35.5 L (BEAKER) (test code = 752) RED CELL DISTRIBUTION WIDTH 20.4 % 11.7-14.4 H (BEAKER) (test code = 412) PLATELET COUNT (BEAKER) (test 175 K/CU MM 150-450 code = 756) MEAN PLATELET VOLUME (BEAKER) 11.8 fL 9.4-12.3 (test code = 754) NUCLEATED RED BLOOD CELLS 1 /100 WBC 0-0 H (BEAKER) (test code = 413) BASIC METABOLIC [id number] 14:32:05 Test Item Value Reference Range Interpretation Comments SODIUM (BEAKER) 132 meq/L 136-145 L (test code = 381) POTASSIUM 4.3 meq/L 3.5-5.1 (BEAKER) (test code = 379) CHLORIDE (BEAKER) 103 meq/L 98-107 (test code = 382) CO2 (BEAKER) 20 meq/L 22-29 L (test code = 355) BLOOD UREA 47 mg/dL 7-21 H NITROGEN (BEAKER) (test code = 354) CREATININE 2.69 mg/dL 0.57-1.25 H (BEAKER) (test code = 358) GLUCOSE RANDOM 122 mg/dL 70-105 H (BEAKER) (test code = 652) CALCIUM (BEAKER) 8.5 mg/dL 8.4-10.2 (test code = 697) EGFR (BEAKER) 21 Interpretatio n of eGFR (test code = [...] not appl icable for dialysis patien ts Security Patrol Officer ID - [id number] 14:22:38 Test Item Value Reference Range Interpretation Comments PHOSPHORUS (BEAKER) (test code = 6.4 mg/dL 2.3-4.7 H 604) Security Patrol Officer ID - [id number] 14:22:37 Test Item Value Reference Range Interpretation Comments MAGNESIUM (BEAKER) (test code = 2.5 mg/dL 1.6-2.6 627) Security Patrol Officer ID - JSBlood gas, [id number] 13:41:35 Test Item Value Reference Range Interpretation Comments pH, Arterial (test code 7.34 7.35-7.45 L = 2744-1) pCO2, Arterial (test 38 See_Comment [Autom ated code = 2019-) message] The system which generated this result transmitted reference range : 35 - 45 mm Hg. The reference range was not used to interpret this result as normal/abnormal . pO2, Arterial (test 79 See_Comment L [Automa tomy code = 2703-7) message] The system which generated this result transmitted reference range : 80 - 90 mm Hg. The reference range was not used to interpret this result as normal/abnormal . O2 Sat, Arterial (test 95.1 % 96.0-97.0 L code = 2708-6) HCO3, Arterial (test 20 mmol/L 21-29 L code = 1960-4) Base Excess, Arterial -5.1 mmol/L -2.0-3.0 L (test code = 1925-7) Patient Temperature 37.0 (test code = 8310-5) FIO2 (test code = 1819) 40 Lab Interpretation Abnormal (test code = 14216-8) [facility], [id number] 13:41:35 Test Item Value Reference Range Interpretation Comments PH ARTERIAL (BEAKER) (test code = 7.34 7.35-7.45 L 383) PCO2 ARTERIAL (BEAKER) (test code 38 mm Hg 35-45 = 384) PO2 ARTERIAL (BEAKER) (test code 79 mm Hg 80-90 L = 385) O2 SATURATION ARTERIAL (BEAKER) 95.1 % 96.0-97.0 L (test code = 386) HCO3 ARTERIAL (BEAKER) (test code 20 mmol/L 21-29 L = 388) BASE EXCESS ARTERIAL (BEAKER) -5.1 mmol/L -2.0-3.0 L (test code = 387) PATIENT TEMPERATURE (BEAKER) 37.0 (test code = 1818) FIO2 (BEAKER) (test code = 1819) 40.0 CALCIUM, [id number] 13:40:45 Test Item Value Reference Range Interpretation Comments CALCIUM IONIZED (BEAKER) (test 1.14 mmol/L 1.12-1.27 code = 698) PH, BLOOD (BEAKER) (test code = 7.34 1810) RAD, ABDOMEN/KUB, 1 VIEW [id number] 12:16:00Reason for exam:->Previously has a retained object [facility] SHASTA : 1975 Sex: FFINAL REPORT RAD, ABDOMEN/KUB, 1 VIEW AP CLINICAL HISTORY: Previously has a retained object TECHNIQUE: RAD, ABDOMEN/KUB, 1 VIEW AP COMPARISON: 12/30/2022 IMPRESSION: Image 9 of 9 obtained to demonstrate potential retained foreign body which is radiolucent. The examination is nondiagnostic for exclusion of radiolucent retained foreign body. There are surgical instruments overlying the bilateral lower extremity soft tissues adjacent to the hips. NG tube tip overlies the region of the mid stomach. Cholecystectomy clips are present. Presumed surgical staple projects over the pelvis,stable since prior exam. Remainder of examination is stable. Signed: Zachariah Lopez MDReport Verified Date/Time: 01/03/2023 12:16:52 Sodium Na-Stat [id number] 09:25:46 Test Item Value Reference Range Interpretation Comments Sodium (test code = 2951-2) 129 meq/L 136-145 L Lab Interpretation (test code = Abnormal 55307-2) [facility] [id number] 09:25:46 Test Item Value Reference Range Interpretation Comments SODIUM (BEAKER) (test code = 381) 129 meq/L 136-145 L pH, [id number] 09:25:38 Test Item Value Reference Range Interpretation Comments pH, Arterial (test code = 2744-1) 7.29 7.35-7.45 L Lab Interpretation (test code = Abnormal 15618-0) [facility]PH, [id number] 09:25:38 Test Item Value Reference Range Interpretation Comments PH ARTERIAL (BEAKER) (test code = 383) 7.29 7.35-7.45 L HGB/HCT (H&H)-Stat [id number] 09:25:31 Test Item Value Reference Range Interpretation Comments Hemoglobin (test code = 7.4 See_Comment L [Au tomated message] 718-7) The system Step-In generated this result transmitted ref erence range: 12.0 - 1 5.0 GM/DL. The refe rence range was not u sed to interpret this result as normal/abnor mal. Hematocrit (test code = 22.0 % 36.0-45.0 L 4544-3) Lab Interpretation (test Abnormal code = 27707-8) [facility] - STAT [id number] 09:25:31 Test Item Value Reference Range Interpretation Comments HEMOGLOBIN (BEAKER) (test code = 7.4 GM/DL 12.0-15.0 L 410) HEMATOCRIT (BEAKER) (test code = 22.0 % 36.0-45.0 L 411) BLOOD GAS, [id number] 09:25:19 Test Item Value Reference Range Interpretation Comments PH ARTERIAL (BEAKER) (test code = 7.29 7.35-7.45 L 383) PCO2 ARTERIAL (BEAKER) (test code 47 mm Hg 35-45 H = 384) PO2 ARTERIAL (BEAKER) (test code 111 mm Hg 80-90 H = 385) O2 SATURATION ARTERIAL (BEAKER) 97.5 % 96.0-97.0 H (test code = 386) HCO3 ARTERIAL (BEAKER) (test code 22 mmol/L 21-29 = 388) BASE EXCESS ARTERIAL (BEAKER) -3.9 mmol/L -2.0-3.0 L (test code = 387) PATIENT TEMPERATURE (BEAKER) 37.0 (test code = 1818) FIO2 (BEAKER) (test code = 1819) 100.0 Potassium-Stat [id number] 09:25:13 Test Item Value Reference Range Interpretation Comments Potassium (test code = 2823-3) 4.0 meq/L 3.6-5.5 Lab Interpretation (test code = Normal 49935-0) [facility] HospitalPOT[facility]SIUM-STAT [id number] 09:25:13 Test Item Value Reference Range Interpretation Comments POTASSIUM (BEAKER) (test code = 4.0 meq/L 3.6-5.5 379) Glucose-Stat [id number] 09:25:06 Test Item Value Reference Range Interpretation Comments Glucose (test code = 2345-7) 120 mg/dL 70-110 H Lab Interpretation (test code = Abnormal 13493-0) [facility] [id number] 09:25:06 Test Item Value Reference Range Interpretation Comments GLUCOSE RANDOM (BEAKER) (test code 120 mg/dL 70-110 H = 652) CALCIUM, [id number] 09:10:47 Test Item Value Reference Range Interpretation Comments CALCIUM IONIZED (BEAKER) (test 1.09 mmol/L 1.12-1.27 L code = 698) PH, BLOOD (BEAKER) (test code = 7.29 1810) BLOOD GAS, [id number] 09:09:14 Test Item Value Reference Range Interpretation Comments PH ARTERIAL (BEAKER) (test code = 7.29 7.35-7.45 L 383) PCO2 ARTERIAL (BEAKER) (test code 47 mm Hg 35-45 H = 384) PO2 ARTERIAL (BEAKER) (test code 111 mm Hg 80-90 H = 385) O2 SATURATION ARTERIAL (BEAKER) 97.5 % 96.0-97.0 H (test code = 386) HCO3 ARTERIAL (BEAKER) (test code 22 mmol/L 21-29 = 388) BASE EXCESS ARTERIAL (BEAKER) -3.9 mmol/L -2.0-3.0 L (test code = 387) PATIENT TEMPERATURE (BEAKER) 37.0 (test code = 1818) FIO2 (BEAKER) (test code = 1819) 100.0 RAD, CHEST, 1 VIEW, NON [id number] 06:42:00Reason for exam:->Post-opShould this be performed at the bedside?->Yes [facility] : 1975 Sex: FFINAL REPORT RAD, CHEST, 1 VIEW, NON DEPT INDICATION: Post-op COMPARISON: Prior day's exam FINDINGS: Portable frontal view of the chest. IMPRESSION: Support Lines: ET tube tip is 3 cm superior to wilfredo. NG tube descends below the diaphragm. Central catheter tip overlies the atriocaval junction. Lungs and pleura: Platelike atelectasis within the right midlung and airspace opacities are increased, concerning for slight volume overload. No significant pneumothorax. Heart and mediastinum: Normal contours. Stable surgical changes. Additional findings: None. Signed: Asif AltamiranoReport Verified Date/Time: 01/03/2023 06:42:32 POCT-GLUCOSE [id number] 05:33:32 Test Item Value Reference Range Interpretation Comments POC-GLUCOSE METER 114 mg/dL 70-110 H : TESTED A T [facility] 6720 (BEAKER) (test code = [place], 1538) [id number]: Security Patrol Officer/Techni waylon ID = [id number] for Valerie Munson [id number] 05:24:09 Test Item Value Reference Range Interpretation Comments FIBRINOGEN LEVEL (BEAKER) (test 556 mg/dl 225-434 H code = 658) HCG, QUANTITATIVE, [id number] 05:22:07 Test Item Value Reference Range Interpretation Comments GONADOTROPIN, CHORIONIC (HCG) QUANT < mIU/mL 0-10 (BEAKER) (test code = 649) Non- Females: <10 mIU/mL Females: Gestation Age Reference Range(mIU/mL) 0.2-1 Week 5-50 1-2 Weeks 50-500 2-3 Weeks 100-5,000 3-4 Weeks 500-10,000 4-5 Weeks 1,000-50,000 5-6 Weeks 10,000-100,000 6-8 Weeks 15,000- 200,000 2-3 Months 10,000-100,000 Security Patrol Officer ID - RMCOMPREHENSIVE METABOLIC PANEL 2023-01-03 05:22:06 Test Item Value Reference Range Interpretation Comments TOTAL PROTEIN 4.6 gm/dL 6.0-8.3 L Specimen sligh tly (BEAKER) (test hemolyzed code = 770) ALBUMIN (BEAKER) 2.3 g/dL 3.5-5.0 L Specimen sl ightly (test code = 1145) hemolyzed ALKALINE 177 U/L 40-150 H PHOSPHATASE (BEAKER) (test code = 346) BILIRUBIN TOTAL 1.6 mg/dL 0.2-1.2 H Specimen sli ghtly (BEAKER) (test hemolyzed code = 377) SODIUM (BEAKER) 132 meq/L 136-145 L (test code = 381) POTASSIUM (BEAKER) 4.2 meq/L 3.5-5.1 Specimen slightly (test code = 379) hemolyzed CHLORIDE (BEAKER) 100 meq/L 98-107 (test code = 382) CO2 (BEAKER) (test 20 meq/L 22-29 L code = 355) BLOOD UREA 46 mg/dL 7-21 H NITROGEN (BEAKER) (test code = 354) CREATININE 2.55 mg/dL 0.57-1.25 H Specimen slight ly (BEAKER) (test hemolyzed code = 358) GLUCOSE RANDOM 116 mg/dL 70-105 H (BEAKER) (test code = 652) CALCIUM (BEAKER) 8.5 mg/dL 8.4-10.2 (test code = 697) AST (SGOT) 54 U/L 5-34 H Specimen slight ly (BEAKER) (test hemolyzed code = 353) ALT (SGPT) 42 U/L 6-55 Specimen slight ly (BEAKER) (test hemolyzed code = 347) EGFR (BEAKER) 22 Interpretatio n of eGFR (test code = [...] not appl icable for dialysis patien ts Security Patrol Officer ID - NEELAM [id number] 05:22:05 Test Item Value Reference Range Interpretation Comments HAPTOGLOBIN (BEAKER) (test code = 332 mg/dL 14-258 H 366) Security Patrol Officer ID - RMOperator ID - RMLACTATE DEHYDROGENASE (LDH)2023-01-03 05:22:04 Test Item Value Reference Range Interpretation Comments LACTATE DEHYDROGENASE 482 U/L 125-220 H Specim en slightly (BEAKER) (test code = hemoly zed 635) Security Patrol Officer ID - NEELAM [id number] 05:12:48 Test Item Value Reference Range Interpretation Comments PHOSPHORUS (BEAKER) 4.7 mg/dL 2.3-4.7 Specimen slightly (test code = 604) hemolyzed Security Patrol Officer ID - NEELAM [id number] 05:12:47 Test Item Value Reference Range Interpretation Comments MAGNESIUM (BEAKER) 2.7 mg/dL 1.6-2.6 H Specimen slightly (test code = 627) hemolyzed Security Patrol Officer ID - NEELAM WRETICULOCYTE [id number] 05:04:04 Test Item Value Reference Range Interpretation Comments RETICULOCYTE COUNT PCT (BEAKER) (test 8.9 % 0.5-1.7 H code = 575) Security Patrol Officer ID - [id number] 04:51:14 Test Item Value Reference Range Interpretation Comments PROTIME (BEAKER) (test code = 13.8 seconds 11.9-14.2 759) INR (BEAKER) (test code = 370) 1.12 <=5.90 PARTIAL THROMBOPLASTIN TIME 25.6 seconds 22.5-36.0 (BEAKER) (test code = 760) RECOMMENDED COUMADIN/WARFARIN INR THERAPY RANGESSTANDARD DOSE: 2.0 - 3.0 Includes: PROPHYLAXIS for venous thrombosis, systemic embolization; TREATMENT for venous thrombosis and/or pulmonary embolus.HIGH RISK: Target INR is 2.5-3.5 for patients with mechanical heart valves.CBC (HEMOGRAM ONLY)2023-01-03 04:43:04 Test Item Value Reference Range Interpretation Comments WHITE BLOOD CELL COUNT (BEAKER) 13.2 K/ L 3.5-10.5 H (test code = 775) RED BLOOD CELL COUNT (BEAKER) 2.50 M/ L 3.93-5.22 L (test code = 761) HEMOGLOBIN (BEAKER) (test code = 7.3 GM/DL 11.2-15.7 L 410) HEMATOCRIT (BEAKER) (test code = 23.4 % 34.1-44.9 L 411) MEAN CORPUSCULAR VOLUME (BEAKER) 94 fL 79-95 (test code = 753) MEAN CORPUSCULAR HEMOGLOBIN 29.2 pg 25.6-32.2 (BEAKER) (test code = 751) MEAN CORPUSCULAR HEMOGLOBIN CONC 31.2 GM/DL 32.2-35.5 L (BEAKER) (test code = 752) RED CELL DISTRIBUTION WIDTH 20.0 % 11.7-14.4 H (BEAKER) (test code = 412) PLATELET COUNT (BEAKER) (test 158 K/CU MM 150-450 code = 756) MEAN PLATELET VOLUME (BEAKER) 11.9 fL 9.4-12.3 (test code = 754) NUCLEATED RED BLOOD CELLS 1 /100 WBC 0-0 H (BEAKER) (test code = 413) CALCIUM, [id number] 04:32:54 Test Item Value Reference Range Interpretation Comments CALCIUM IONIZED (BEAKER) (test 1.12 mmol/L 1.12-1.27 code = 698) PH, BLOOD (BEAKER) (test code = 7.46 1810) BASIC METABOLIC [id number] 03:21:31 Test Item Value Reference Range Interpretation Comments SODIUM (BEAKER) 132 meq/L 136-145 L (test code = 381) POTASSIUM 5.0 meq/L 3.5-5.1 (BEAKER) (test code = 379) CHLORIDE (BEAKER) 100 meq/L 98-107 (test code = 382) CO2 (BEAKER) 17 meq/L 22-29 L (test code = 355) BLOOD UREA 68 mg/dL 7-21 H NITROGEN (BEAKER) (test code = 354) CREATININE 3.86 mg/dL 0.57-1.25 H (BEAKER) (test code = 358) GLUCOSE RANDOM 117 mg/dL 70-105 H (BEAKER) (test code = 652) CALCIUM (BEAKER) 8.3 mg/dL 8.4-10.2 L (test code = 697) EGFR (BEAKER) 14 Interpretatio n of eGFR (test code = mL/min/1.73 values Stage De scription 1092) sq m Result G1 Veronica l or high >=90 G2 Mildly decreased 60-89 G3a Mildl y to moderately 45-5 9 G3b Moderately to s everely 30-44 G4 Severl y decreased 15-29 G5 Kidne y failure <15Reported eGF R is based on the CKD-EPI 1 equation that d oes not use a race coefficientEsti mated GFR is not as accur ate as Creatinine Katelyn lovett in predicting glom erular filtration rate . Estimated GFR is not appl icable for dialysis patien ts Security Patrol Officer ID - NEELAM [id number] 03:19:36 Test Item Value Reference Range Interpretation Comments PHOSPHORUS (BEAKER) (test code = 7.0 mg/dL 2.3-4.7 H 604) Security Patrol Officer ID Jonathan RICHTER [id number] 03:19:35 Test Item Value Reference Range Interpretation Comments MAGNESIUM (BEAKER) (test code = 3.2 mg/dL 1.6-2.6 H 627) Security Patrol Officer ID - NEELAM WPOCT-GLUCOSE [id number] 00:50:42 Test Item Value Reference Range Interpretation Comments POC-GLUCOSE METER 129 mg/dL 70-110 H : [facility] (test code = [place], 1538) [id number]: Security Patrol Officer/Techni waylon ID = [id number] for Valerie Munson CALCIUM, [id number] 00:42:22 Test Item Value Reference Range Interpretation Comments CALCIUM IONIZED (BEAKER) (test 1.07 mmol/L 1.12-1.27 L code = 698) PH, BLOOD (BEAKER) (test code = 7.41 1810) RAD, CHEST, 1 VIEW, NON [id number] 19:52:00Reason for exam:->central lineShould this be performed at the bedside?->Yes [facility] 1975 Sex: FFINAL REPORT TECHNIQUE: Frontal view of the chest. INDICATION: central line. COMPARISON: 01/12/2023 at 2:30 AM. FINDINGS: LINES/TUBES: Endotracheal tube tip projected 3.3 cm above the level of the wilfredo. Esophagogastric tube extends below the diaphragm. Right IJ central venous catheter to project over the mid SVC. HEART AND MEDIASTINUM: Cardiomediastinal contour is stable. LUNGS: Increasing pulmonary vascular congestion. Persistent patchy bibasilar opacities. PLEURA: No pneumothorax. No significant pleural effusion. SOFT TISSUES AND BONES: Unremarkable. IMPRESSION:1. Right IJ central venous catheter tip projects over the mid SVC. Endotracheal tube and esophagogastric tubes remain present. No pneumothorax.2. Increasing pulmonary vascular congestion. Persistent patchy bibasilar opacities, left greater than right. Signed: Demetrius Luis MDReport Verified Date/Time: 01/02/2023 19:52:03 POCT-GLUCOSE [id number] 17:47:30 Test Item Value Reference Range Interpretation Comments POC-GLUCOSE METER 124 mg/dL 70-110 H : TESTED A T [facility] 6720 (BEAKER) (test code = RO[place]utiérrez [place], 1538) [id number]: Security Patrol Officer/Techni waylon ID = [id number] for EFRAIN BERMAN BASIC METABOLIC [id number] 17:18:05 Test Item Value Reference Range Interpretation Comments SODIUM (BEAKER) 130 meq/L 136-145 L (test code = 381) POTASSIUM 5.0 meq/L 3.5-5.1 (BEAKER) (test code = 379) CHLORIDE (BEAKER) 99 meq/L 98-107 (test code = 382) CO2 (BEAKER) 18 meq/L 22-29 L (test code = 355) BLOOD UREA 64 mg/dL 7-21 H NITROGEN (BEAKER) (test code = 354) CREATININE 3.71 mg/dL 0.57-1.25 H (BEAKER) (test code = 358) GLUCOSE RANDOM 129 mg/dL 70-105 H (BEAKER) (test code = 652) CALCIUM (BEAKER) 8.3 mg/dL 8.4-10.2 L (test code = 697) EGFR (BEAKER) 14 Interpretatio n of eGFR (test code = [...] not appl icable for dialysis patien ts Security Patrol Officer ID - [id number] 17:12:58 Test Item Value Reference Range Interpretation Comments PHOSPHORUS (BEAKER) (test code = 6.9 mg/dL 2.3-4.7 H 604) Security Patrol Officer ID - [id number] 17:12:57 Test Item Value Reference Range Interpretation Comments MAGNESIUM (BEAKER) (test code = 3.3 mg/dL 1.6-2.6 H 627) Security Patrol Officer ID - RMCALCIUM, [id number] 16:23:41 Test Item Value Reference Range Interpretation Comments CALCIUM IONIZED (BEAKER) (test 1.11 mmol/L 1.12-1.27 L code = 698) PH, BLOOD (BEAKER) (test code = 7.45 1810) POCT-GLUCOSE [id number] 11:39:00 Test Item Value Reference Range Interpretation Comments POC-GLUCOSE METER 151 mg/dL 70-110 H : TESTED A T [facility] (BEAKER) (test code = [place], 1538) [id number]: Security Patrol Officer/Techni waylon ID = [id number] for EFRAIN BERMAN BLOOD GAS, [id number] 09:45:08 Test Item Value Reference Range Interpretation Comments PH ARTERIAL (BEAKER) (test code = 7.48 7.35-7.45 H 383) PCO2 ARTERIAL (BEAKER) (test code 28 mm Hg 35-45 L = 384) PO2 ARTERIAL (BEAKER) (test code 113 mm Hg 80-90 H = 385) O2 SATURATION ARTERIAL (BEAKER) 98.5 % 96.0-97.0 H (test code = 386) HCO3 ARTERIAL (BEAKER) (test code 20 mmol/L 21-29 L = 388) BASE EXCESS ARTERIAL (BEAKER) -2.7 mmol/L -2.0-3.0 L (test code = 387) PATIENT TEMPERATURE (BEAKER) 36.5 (test code = 1818) FIO2 (BEAKER) (test code = 1819) 40.0 POCT-GLUCOSE [id number] 08:13:58 Test Item Value Reference Range Interpretation Comments POC-GLUCOSE METER 153 mg/dL 70-110 H : TESTED A T [facility] (BEAKER) (test code = [place], 1538) [id number]: Security Patrol Officer/Techni waylon ID = [id number] for EFRAIN BERMAN RAD, CHEST, 1 VIEW, NON [id number] 07:21:00Reason for exam:->Post-opShould this be performed at the bedside?->Yes [facility] : 1975 Sex: FFINAL REPORT RAD, CHEST, 1 VIEW, NON DEPT INDICATION: Post-op COMPARISON: Prior day's exam FINDINGS: Portable frontal view of the chest. IMPRESSION: Support Lines: ET tube tip is 3 cm superior to wilfredo. NG tube descends below the diaphragm. Central catheter tip overlies the atriocaval junction. Lungs and pleura: Lungs are clear. Platelike atelectasis within the right midlung. No significant pneumothorax. Heart and mediastinum: Normal contours. Stable surgical changes. Additional findings: None. Signed: Krystyna Altamirano Verified Date/Time: 01/02/2023 07:21:57 BLOOD [id number] 07:00:27 Test Item Value Reference Range Interpretation Comments CULTURE (RHEA) (test No growth in 5 days code = 1095) [id number] 02:21:12 Test Item Value Reference Range Interpretation Comments HAPTOGLOBIN (RHEA) (test code = 250 mg/dL 14-399 366) Security Patrol Officer ID - EDCOMPREHENSIVE METABOLIC [id number] 02:21:06 Test Item Value Reference Range Interpretation Comments TOTAL PROTEIN 4.5 gm/dL 6.0-8.3 L Specimen sligh tly (BEAKER) (test hemolyzed code = 770) ALBUMIN (BEAKER) 2.2 g/dL 3.5-5.0 L Specimen sl ightly (test code = 1145) hemolyzed ALKALINE 143 U/L 40-150 PHOSPHATASE (BEAKER) (test code = 346) BILIRUBIN TOTAL 1.7 mg/dL 0.2-1.2 H Specimen sli ghtly (BEAKER) (test hemolyzed code = 377) SODIUM (BEAKER) 132 meq/L 136-145 L (test code = 381) POTASSIUM (BEAKER) 5.0 meq/L 3.5-5.1 Specimen slightly (test code = 379) hemolyzed CHLORIDE (BEAKER) 100 meq/L 98-107 (test code = 382) CO2 (BEAKER) (test 20 meq/L 22-29 L code = 355) BLOOD UREA 57 mg/dL 7-21 H NITROGEN (BEAKER) (test code = 354) CREATININE 3.39 mg/dL 0.57-1.25 H Specimen slight ly (BEAKER) (test hemolyzed code = 358) GLUCOSE RANDOM 158 mg/dL 70-105 H (BEAKER) (test code = 652) CALCIUM (BEAKER) 8.6 mg/dL 8.4-10.2 (test code = 697) AST (SGOT) 39 U/L 5-34 H Specimen slight ly (BEAKER) (test hemolyzed code = 353) ALT (SGPT) 27 U/L 6-55 Specimen slight ly (BEAKER) (test hemolyzed code = 347) EGFR (BEAKER) 16 Interpretatio n of eGFR (test code = [...] not appl icable for dialysis patien ts Security Patrol Officer ID - EDLACTATE DEHYDROGENASE (LDH)2023-01-02 02:21:00 Test Item Value Reference Range Interpretation Comments LACTATE DEHYDROGENASE 442 U/L 125-220 H Specim en slightly (BEAKER) (test code = hemoly zed 635) Security Patrol Officer ID - EDCALCIUM, [id number] 02:00:45 Test Item Value Reference Range Interpretation Comments CALCIUM IONIZED (BEAKER) (test 1.10 mmol/L 1.12-1.27 L code = 698) PH, BLOOD (BEAKER) (test code = 7.48 1810) [id number] 01:56:07 Test Item Value Reference Range Interpretation Comments PROTIME (BEAKER) (test code = 14.6 seconds 11.9-14.2 H 759) INR (BEAKER) (test code = 370) 1.21 <=5.90 PARTIAL THROMBOPLASTIN TIME 27.5 seconds 22.5-36.0 (BEAKER) (test code = 760) RECOMMENDED COUMADIN/WARFARIN INR THERAPY RANGESSTANDARD DOSE: 2.0 - 3.0 Includes: PROPHYLAXIS for venous thrombosis, systemic embolization; TREATMENT for venous thrombosis and/or pulmonary embolus.HIGH RISK: Target INR is 2.5-3.5 for patients with mechanical heart valves.[id number] 01:56:06 Test Item Value Reference Range Interpretation Comments FIBRINOGEN LEVEL (BEAKER) (test 522 mg/dl 225-434 H code = 658) RETICULOCYTE [id number] 01:48:21 Test Item Value Reference Range Interpretation Comments RETICULOCYTE COUNT PCT 7.2 % 0.5-1.7 H Resul t corrected with (BEAKER) (test code = 575) 1 :5 DCL dilution. Security Patrol Officer ID - [id number] (HEMOGRAM ONLY)2023-01-02 01:37:07 Test Item Value Reference Range Interpretation Comments WHITE BLOOD CELL COUNT (BEAKER) 13.3 K/ L 3.5-10.5 H (test code = 775) RED BLOOD CELL COUNT (BEAKER) 2.42 M/ L 3.93-5.22 L (test code = 761) HEMOGLOBIN (BEAKER) (test code = 7.5 GM/DL 11.2-15.7 L 410) HEMATOCRIT (BEAKER) (test code = 23.0 % 34.1-44.9 L 411) MEAN CORPUSCULAR VOLUME (BEAKER) 95 fL 79-95 (test code = 753) MEAN CORPUSCULAR HEMOGLOBIN 31.0 pg 25.6-32.2 (BEAKER) (test code = 751) MEAN CORPUSCULAR HEMOGLOBIN CONC 32.6 GM/DL 32.2-35.5 (BEAKER) (test code = 752) RED CELL DISTRIBUTION WIDTH 20.2 % 11.7-14.4 H (BEAKER) (test code = 412) PLATELET COUNT (BEAKER) (test 142 K/CU MM 150-450 L code = 756) MEAN PLATELET VOLUME (BEAKER) 12.4 fL 9.4-12.3 H (test code = 754) NUCLEATED RED BLOOD CELLS 2 /100 WBC 0-0 H (BEAKER) (test code = 413) BASIC METABOLIC [id number] 00:43:09 Test Item Value Reference Range Interpretation Comments SODIUM (BEAKER) 131 meq/L 136-145 L (test code = 381) POTASSIUM 4.8 meq/L 3.5-5.1 (BEAKER) (test code = 379) CHLORIDE (BEAKER) 100 meq/L 98-107 (test code = 382) CO2 (BEAKER) 19 meq/L 22-29 L (test code = 355) BLOOD UREA 55 mg/dL 7-21 H NITROGEN (BEAKER) (test code = 354) CREATININE 3.31 mg/dL 0.57-1.25 H (BEAKER) (test code = 358) GLUCOSE RANDOM 164 mg/dL 70-105 H (BEAKER) (test code = 652) CALCIUM (BEAKER) 8.5 mg/dL 8.4-10.2 (test code = 697) EGFR (BEAKER) 16 Interpretatio n of eGFR (test code = [...] not appl icable for dialysis patien ts Security Patrol Officer ID - [id number] 00:36:42 Test Item Value Reference Range Interpretation Comments PHOSPHORUS (BEAKER) (test code = 6.4 mg/dL 2.3-4.7 H 604) Security Patrol Officer ID - [id number] 00:36:41 Test Item Value Reference Range Interpretation Comments MAGNESIUM (BEAKER) (test code = 3.3 mg/dL 1.6-2.6 H 627) Security Patrol Officer ID - EDCALCIUM, [id number] 00:17:21 Test Item Value Reference Range Interpretation Comments CALCIUM IONIZED (BEAKER) (test 1.12 mmol/L 1.12-1.27 code = 698) PH, BLOOD (BEAKER) (test code = 7.46 1810) BASIC METABOLIC [id number] 22:37:03 Test Item Value Reference Range Interpretation Comments SODIUM (BEAKER) 133 meq/L 136-145 L (test code = 381) POTASSIUM 4.7 meq/L 3.5-5.1 (BEAKER) (test code = 379) CHLORIDE (BEAKER) 101 meq/L 98-107 (test code = 382) CO2 (BEAKER) 21 meq/L 22-29 L (test code = 355) BLOOD UREA 50 mg/dL 7-21 H NITROGEN (BEAKER) (test code = 354) CREATININE 3.05 mg/dL 0.57-1.25 H (BEAKER) (test code = 358) GLUCOSE RANDOM 161 mg/dL 70-105 H (BEAKER) (test code = 652) CALCIUM (BEAKER) 8.9 mg/dL 8.4-10.2 (test code = 697) EGFR (BEAKER) 18 Interpretatio n of eGFR (test code = mL/min/1.73 values Stage De scription 1092) sq m Result G1 Norm al or high >=90 G2 Mildly decreased 60-89 [...] not appl icable for dialysis patien ts Security Patrol Officer ID - [id number] 22:35:54 Test Item Value Reference Range Interpretation Comments PHOSPHORUS (BEAKER) (test code = 5.8 mg/dL 2.3-4.7 H 604) Security Patrol Officer ID - [id number] 22:35:53 Test Item Value Reference Range Interpretation Comments MAGNESIUM (BEAKER) (test code = 3.3 mg/dL 1.6-2.6 H 627) Security Patrol Officer ID - edCALCIUM, [id number] 22:03:28 Test Item Value Reference Range Interpretation Comments CALCIUM IONIZED (BEAKER) (test 1.16 mmol/L 1.12-1.27 code = 698) PH, BLOOD (BEAKER) (test code = 7.46 1810) BLOOD [id number] 19:00:31 Test Item Value Reference Range Interpretation Comments CULTURE (BEAKER) (test No growth in 5 days code = 1095) BLOOD [id number] 19:00:30 Test Item Value Reference Range Interpretation Comments CULTURE (BEAKER) (test No growth in 5 days code = 1095) POCT-GLUCOSE [id number] 18:25:31 Test Item Value Reference Range Interpretation Comments POC-GLUCOSE METER 180 mg/dL 70-110 H : TESTED A T [facility] 6720 (BEAKER) (test code = MARTHAHAVEN Gutiérrez [facility], 1538) [id number]: Security Patrol Officer/Techni waylon ID = [id number] for LO RUDY, ZELDA RAD, CHEST, 1 VIEW, NON [id number] 16:22:00Reason for exam:->Post-opShould this be performed at the bedside?->Yes [facility] 1975 Sex: FFINAL REPORT RAD, CHEST, 1 VIEW, NON DEPT INDICATION: Post-op COMPARISON: Prior day's exam FINDINGS: Portable frontal view of the chest. IMPRESSION: Support Lines: ET tube tip is3 cm superior to wilfredo. NG tube descends below the diaphragm. Central catheter tip overlies the atriocaval junction. Lungs and pleura: Lungs are clear. Platelike atelectasis within the right midlung. No significant pneumothorax. Heart and mediastinum: Normal contours. Additional findings: None. Signed: Krystyna Altamirano Verified Date/Time: 01/01/2023 16:22:46 Arterial Doppler leg, [id number] 12:35:39 Ejection FractionSLEH ECHO HEARTLAB MKCKESSON [facility] POCT-GLUCOSE [id number] 12:14:20 Test Item Value Reference Range Interpretation Comments POC-GLUCOSE METER 191 mg/dL 70-110 H : TESTED A T [facility] 6720 (BEAKER) (test code = ROZ Gutiérrez [facility], 1538) [id number]: Security Patrol Officer/Techni waylon ID = [id number] for ZELDA LINK BLOOD GAS, [id number] 11:34:27 Test Item Value Reference Range Interpretation Comments PH ARTERIAL (BEAKER) (test code = 7.47 7.35-7.45 H 383) PCO2 ARTERIAL (BEAKER) (test code 31 mm Hg 35-45 L = 384) PO2 ARTERIAL (BEAKER) (test code 77 mm Hg 80-90 L = 385) O2 SATURATION ARTERIAL (BEAKER) 96.2 % 96.0-97.0 (test code = 386) HCO3 ARTERIAL (BEAKER) (test code 22 mmol/L 21-29 = 388) BASE EXCESS ARTERIAL (BEAKER) -1.3 mmol/L -2.0-3.0 (test code = 387) PATIENT TEMPERATURE (BEAKER) 37.0 (test code = 1818) FIO2 (BEAKER) (test code = 1819) 40.0 SPIN/CONCENTRATION [id number] 08:07:42 Test Item Value Reference Range Interpretation Comments Concentration charged (test code = Done 6047) [facility] [id number] 08:07:42 Test Item Value Reference Range Interpretation Comments CONCENTRATION CHARGED (BEAKER) (test Done code = 8455) POCT-GLUCOSE [id number] 06:38:19 Test Item Value Reference Range Interpretation Comments POC-GLUCOSE METER 199 mg/dL 70-110 H : TESTED A T [facility] 6720 (BEAKER) (test code = ROZ [place], 1538) [id number]: Security Patrol Officer/Techni waylon ID = [id number] for DO RECIOHALINASY COMPREHENSIVE METABOLIC [id number] 04:03:23 Test Item Value Reference Range Interpretation Comments TOTAL PROTEIN 4.5 gm/dL 6.0-8.3 L (BEAKER) (test code = 770) ALBUMIN (BEAKER) 2.7 g/dL 3.5-5.0 L (test code = 1145) ALKALINE 142 U/L 40-150 PHOSPHATASE (BEAKER) (test code = 346) BILIRUBIN TOTAL 2.3 mg/dL 0.2-1.2 H (BEAKER) (test code = 377) SODIUM (BEAKER) 132 meq/L 136-145 L (test code = 381) POTASSIUM (BEAKER) 4.5 meq/L 3.5-5.1 (test code = 379) CHLORIDE (BEAKER) 99 meq/L 98-107 (test code = 382) CO2 (BEAKER) (test 20 meq/L 22-29 L code = 355) BLOOD UREA 48 mg/dL 7-21 H NITROGEN (BEAKER) (test code = 354) CREATININE 2.96 mg/dL 0.57-1.25 H (BEAKER) (test code = 358) GLUCOSE RANDOM 179 mg/dL 70-105 H (BEAKER) (test code = 652) CALCIUM (BEAKER) 10.0 mg/dL 8.4-10.2 (test code = 697) AST (SGOT) 27 U/L 5-34 (BEAKER) (test code = 353) ALT (SGPT) 19 U/L 6-55 (BEAKER) (test code = 347) EGFR (BEAKER) 19 Interpretatio n of eGFR (test code = [...] not appl icable for dialysis patien ts Security Patrol Officer ID - BSLACTATE DEHYDROGENASE (LDH)2023-01-01 03:55:40 Test Item Value Reference Range Interpretation Comments LACTATE DEHYDROGENASE (BEAKER) (test 346 U/L 125-220 H code = 635) Security Patrol Officer ID - [id number] 03:55:39 Test Item Value Reference Range Interpretation Comments PHOSPHORUS (BEAKER) (test code = 6.5 mg/dL 2.3-4.7 H 604) Security Patrol Officer ID - [id number] 03:55:38 Test Item Value Reference Range Interpretation Comments MAGNESIUM (BEAKER) (test code = 3.3 mg/dL 1.6-2.6 H 627) Security Patrol Officer ID - BSRETICULOCYTE [id number] 03:36:48 Test Item Value Reference Range Interpretation Comments RETICULOCYTE COUNT PCT (BEAKER) (test 11.3 % 0.5-1.7 H code = 575) Security Patrol Officer ID - [id number] 03:26:32 Test Item Value Reference Range Interpretation Comments HAPTOGLOBIN (BEAKER) (test code = 193 mg/dL 14-258 366) Security Patrol Officer ID - [id number] 03:25:53 Test Item Value Reference Range Interpretation Comments FIBRINOGEN LEVEL (BEAKER) (test 415 mg/dl 225-434 code = 658) CBC (HEMOGRAM ONLY)2023-01-01 03:18:19 Test Item Value Reference Range Interpretation Comments WHITE BLOOD CELL COUNT (BEAKER) 19.2 K/ L 3.5-10.5 H (test code = 775) RED BLOOD CELL COUNT (BEAKER) 3.05 M/ L 3.93-5.22 L (test code = 761) HEMOGLOBIN (BEAKER) (test code = 9.4 GM/DL 11.2-15.7 L 410) HEMATOCRIT (BEAKER) (test code = 29.5 % 34.1-44.9 L 411) MEAN CORPUSCULAR VOLUME (BEAKER) 97 fL 79-95 H (test code = 753) MEAN CORPUSCULAR HEMOGLOBIN 30.8 pg 25.6-32.2 (BEAKER) (test code = 751) MEAN CORPUSCULAR HEMOGLOBIN CONC 31.9 GM/DL 32.2-35.5 L (BEAKER) (test code = 752) RED CELL DISTRIBUTION WIDTH 20.5 % 11.7-14.4 H (BEAKER) (test code = 412) PLATELET COUNT (BEAKER) (test 170 K/CU MM 150-450 code = 756) MEAN PLATELET VOLUME (BEAKER) 12.8 fL 9.4-12.3 H (test code = 754) NUCLEATED RED BLOOD CELLS 3 /100 WBC 0-0 H (BEAKER) (test code = 413) [id number] 03:16:34 Test Item Value Reference Range Interpretation Comments PROTIME (BEAKER) (test code = 14.8 seconds 11.9-14.2 H 759) INR (BEAKER) (test code = 370) 1.23 <=5.90 PARTIAL THROMBOPLASTIN TIME 27.0 seconds 22.5-36.0 (BEAKER) (test code = 760) RECOMMENDED COUMADIN/WARFARIN INR THERAPY RANGESSTANDARD DOSE: 2.0 - 3.0 Includes: PROPHYLAXIS for venous thrombosis, systemic embolization; TREATMENT for venous thrombosis and/or pulmonary embolus.HIGH RISK: Target INR is 2.5-3.5 for patients with mechanical heart valves.POCT-GLUCOSE [id number] 00:01:48 Test Item Value Reference Range Interpretation Comments POC-GLUCOSE METER 171 mg/dL 70-110 H : TESTED Bryan Becerril [facility] 6720 (BEAKER) (test code = ROZ IBARRA, 1538) [address]: Security Patrol Officer/Techni waylon ID = [id number] for NIDA ELDRIDGE BASIC METABOLIC [id number] 18:42:39 Test Item Value Reference Range Interpretation Comments SODIUM (BEAKER) 135 meq/L 136-145 L (test code = 381) POTASSIUM 4.2 meq/L 3.5-5.1 (BEAKER) (test code = 379) CHLORIDE (BEAKER) 101 meq/L 98-107 (test code = 382) CO2 (BEAKER) 23 meq/L 22-29 (test code = 355) BLOOD UREA 41 mg/dL 7-21 H NITROGEN (BEAKER) (test code = 354) CREATININE 2.57 mg/dL 0.57-1.25 H (BEAKER) (test code = 358) GLUCOSE RANDOM 164 mg/dL 70-105 H (BEAKER) (test code = 652) CALCIUM (BEAKER) 10.3 mg/dL 8.4-10.2 H (test code = 697) EGFR (BEAKER) 22 Interpretatio n of eGFR (test code = [...] not appl icable for dialysis patien ts Security Patrol Officer ID - BSHEPATIC FUNCTION [id number] 18:40:26 Test Item Value Reference Range Interpretation Comments TOTAL PROTEIN (BEAKER) (test code = 4.6 gm/dL 6.0-8.3 L 770) ALBUMIN (BEAKER) (test code = 1145) 3.0 g/dL 3.5-5.0 L BILIRUBIN TOTAL (BEAKER) (test code 2.4 mg/dL 0.2-1.2 H = 377) BILIRUBIN DIRECT (BEAKER) (test 1.6 mg/dL 0.1-0.5 H code = 706) ALKALINE PHOSPHATASE (BEAKER) (test 146 U/L 40-150 code = 346) AST (SGOT) (BEAKER) (test code = 31 U/L 5-34 353) ALT (SGPT) (BEAKER) (test code = 22 U/L 6-55 347) Security Patrol Officer ID - [id number] 18:40:25 Test Item Value Reference Range Interpretation Comments PHOSPHORUS (BEAKER) (test code = 7.0 mg/dL 2.3-4.7 H 604) Security Patrol Officer ID - [id number] 18:40:24 Test Item Value Reference Range Interpretation Comments MAGNESIUM (BEAKER) (test code = 3.3 mg/dL 1.6-2.6 H 627) Security Patrol Officer ID - BSRAD, CHEST, 1 VIEW, NON [id number] 18:28:00Reason for exam:- >ETT placementShould this be performed at the bedside?->Yes [facility] SHASTA : 1975 Sex: FFINAL REPORT TECHNIQUE: Frontal view of the chest. INDICATION: ETT placement. COMPARISON: 12/30/2022. FINDINGS: LINES/TUBES: None endotracheal tube tip projects 1.6 cm above the level of the wilfredo. Esophagogastric tube extends below the diaphragm. Right IJ central venous catheter with tip projecting over the cavoatrial junction. HEART AND MEDIASTINUM: Cardiomediastinal contour is stable. LUNGS: Patchy bibasilar opacities, slightly increased. Mild pulmonary vascular congestion. Overall slight decrease in lung volumes. PLEURA: No pneumothorax. No significant pleural effusion. SOFT TISSUES AND BONES: Unremarkable. IMPRESSION: 1. Endotracheal tube tip projected 1.6 cm above the level of the wilfredo.2. Placement of an esophagogastric tube which extends below the diaphragm; tip not included on this examination. Right IJ catheter remains unchanged.3. Decrease in lung volumes with increasing patchy bibasilar opacities which may be related atelectasis and/or pneumonia. Follow-up to resolution is advised. There is a background of mild pulmonary vascular congestion. Signed: Demetrius Luis MDReport Verified Date/Time: 12/31/2022 18:28:19 /[id number] 18:27:38 Test Item Value Reference Range Interpretation Comments PROTIME (BEAKER) (test code = 15.3 seconds 11.9-14.2 H 759) INR (BEAKER) (test code = 370) 1.23 <=5.90 PARTIAL THROMBOPLASTIN TIME 30.9 seconds 22.5-36.0 (BEAKER) (test code = 760) RECOMMENDED COUMADIN/WARFARIN INR THERAPY RANGESSTANDARD DOSE: 2.0 - 3.0 Includes: PROPHYLAXIS for venous thrombosis, systemic embolization; TREATMENT for venous thrombosis and/or pulmonary embolus.HIGH RISK: Target INR is 2.5-3.5 for patients with mechanical heart valves.PROTHROMBIN TIME/[id number] 18:26:54 Test Item Value Reference Range Interpretation Comments PROTIME (BEAKER) (test code = 15.3 seconds 11.9-14.2 H 759) INR (BEAKER) (test code = 370) 1.23 <=5.90 RECOMMENDED COUMADIN/WARFARIN INR THERAPY RANGESSTANDARD DOSE: 2.0 - 3.0 Includes: PROPHYLAXIS for venous thrombosis, systemic embolization; TREATMENT for venous thrombosis and/or pulmonary embolus.HIGH RISK: Target INR is 2.5-3.5 for patients with mechanical heart valves.CBC W/PLT COUNT & AUTO [id number] 18:20:54 Test Item Value Reference Range Interpretation Comments WHITE BLOOD CELL COUNT (BEAKER) 10.7 K/ L 3.5-10.5 H (test code = 775) RED BLOOD CELL COUNT (BEAKER) 2.89 M/ L 3.93-5.22 L (test code = 761) HEMOGLOBIN (BEAKER) (test code = 8.7 GM/DL 11.2-15.7 L 410) HEMATOCRIT (BEAKER) (test code = 27.4 % 34.1-44.9 L 411) MEAN CORPUSCULAR VOLUME (BEAKER) 95 fL 79-95 (test code = 753) MEAN CORPUSCULAR HEMOGLOBIN 30.1 pg 25.6-32.2 (BEAKER) (test code = 751) MEAN CORPUSCULAR HEMOGLOBIN CONC 31.8 GM/DL 32.2-35.5 L (BEAKER) (test code = 752) RED CELL DISTRIBUTION WIDTH 20.0 % 11.7-14.4 H (BEAKER) (test code = 412) PLATELET COUNT (BEAKER) (test 116 K/CU MM 150-450 L code = 756) MEAN PLATELET VOLUME (BEAKER) 12.2 fL 9.4-12.3 (test code = 754) NUCLEATED RED BLOOD CELLS 3 /100 WBC 0-0 H (BEAKER) (test code = 413) BLOOD GAS, [id number] 18:17:12 Test Item Value Reference Range Interpretation Comments PH ARTERIAL (BEAKER) (test code = 7.39 7.35-7.45 383) PCO2 ARTERIAL (BEAKER) (test code 42 mm Hg 35-45 = 384) PO2 ARTERIAL (BEAKER) (test code 91 mm Hg 80-90 H = 385) O2 SATURATION ARTERIAL (BEAKER) 96.9 % 96.0-97.0 (test code = 386) HCO3 ARTERIAL (BEAKER) (test code 25 mmol/L 21-29 = 388) BASE EXCESS ARTERIAL (BEAKER) -0.5 mmol/L -2.0-3.0 (test code = 387) PATIENT TEMPERATURE (BEAKER) 37.0 (test code = 1818) FIO2 (BEAKER) (test code = 1819) 50.0 HGB/HCT (H&H) - STAT [id number] 15:24:18 Test Item Value Reference Range Interpretation Comments HEMOGLOBIN (BEAKER) (test code = 6.8 GM/DL 12.0-15.0 L 410) HEMATOCRIT (BEAKER) (test code = 20.0 % 36.0-45.0 L 411) SODIUM NA-STAT [id number] 15:24:17 Test Item Value Reference Range Interpretation Comments SODIUM (BEAKER) (test code = 381) 130 meq/L 136-145 L BLOOD GAS, [id number] 15:24:16 Test Item Value Reference Range Interpretation Comments PH ARTERIAL (BEAKER) (test code = 7.40 7.35-7.45 383) PCO2 ARTERIAL (BEAKER) (test code 42 mm Hg 35-45 = 384) PO2 ARTERIAL (BEAKER) (test code = 167 mm Hg 80-90 H 385) O2 SATURATION ARTERIAL (BEAKER) 99.1 % 96.0-97.0 H (test code = 386) HCO3 ARTERIAL (BEAKER) (test code 26 mmol/L 21-29 = 388) BASE EXCESS ARTERIAL (BEAKER) 0.7 mmol/L -2.0-3.0 (test code = 387) PATIENT TEMPERATURE (BEAKER) (test 36.1 code = 1818) FIO2 (BEAKER) (test code = 1819) 93.0 POTASSIUM-STAT [id number] 15:24:05 Test Item Value Reference Range Interpretation Comments POTASSIUM (BEAKER) (test code = 4.2 meq/L 3.6-5.5 379) GLUCOSE-STAT [id number] 15:24:04 Test Item Value Reference Range Interpretation Comments GLUCOSE RANDOM (BEAKER) (test code 146 mg/dL 70-110 H = 652) CALCIUM, [id number] 15:23:01 Test Item Value Reference Range Interpretation Comments CALCIUM IONIZED (BEAKER) (test 1.12 mmol/L 1.12-1.27 code = 698) PH, BLOOD (BEAKER) (test code = 7.39 1810) HGB/HCT (H&H) - STAT [id number] 14:46:12 Test Item Value Reference Range Interpretation Comments HEMOGLOBIN (BEAKER) (test code = 6.6 GM/DL 12.0-15.0 L 410) HEMATOCRIT (BEAKER) (test code = 19.0 % 36.0-45.0 L 411) SODIUM NA-STAT [id number] 14:46:11 Test Item Value Reference Range Interpretation Comments SODIUM (BEAKER) (test code = 381) 131 meq/L 136-145 L BLOOD GAS, [id number] 14:46:10 Test Item Value Reference Range Interpretation Comments PH ARTERIAL (BEAKER) (test code = 7.40 7.35-7.45 383) PCO2 ARTERIAL (BEAKER) (test code 44 mm Hg 35-45 = 384) PO2 ARTERIAL (BEAKER) (test code = 177 mm Hg 80-90 H 385) O2 SATURATION ARTERIAL (BEAKER) 99.2 % 96.0-97.0 H (test code = 386) HCO3 ARTERIAL (BEAKER) (test code 27 mmol/L 21-29 = 388) BASE EXCESS ARTERIAL (BEAKER) 1.5 mmol/L -2.0-3.0 (test code = 387) PATIENT TEMPERATURE (BEAKER) (test 35.8 code = 1818) FIO2 (BEAKER) (test code = 1819) 95.0 POTASSIUM-STAT [id number] 14:45:58 Test Item Value Reference Range Interpretation Comments POTASSIUM (BEAKER) (test code = 3.6 meq/L 3.6-5.5 379) GLUCOSE-STAT [id number] 14:45:57 Test Item Value Reference Range Interpretation Comments GLUCOSE RANDOM (BEAKER) (test code 141 mg/dL 70-110 H = 652) PH, [id number] 14:45:56 Test Item Value Reference Range Interpretation Comments PH ARTERIAL (BEAKER) (test code = 383) 7.40 7.35-7.45 CALCIUM, [id number] 14:45:34 Test Item Value Reference Range Interpretation Comments CALCIUM IONIZED (BEAKER) (test 1.14 mmol/L 1.12-1.27 code = 698) PH, BLOOD (BEAKER) (test code = 7.38 1810) POCT-GLUCOSE [id number] 12:27:38 Test Item Value Reference Range Interpretation Comments POC-GLUCOSE METER 148 mg/dL 70-110 H : TESTED A T [facility] 6720 (BEAKER) (test code = [place], 1538) [address]: Security Patrol Officer/Techni waylon ID = [id number] for [facility] [place], [id number] 11:03:00Unlisted Reason for Exam - Click Yes and Enter Reason Below->YesUnlisted Reason for Exam->Evaluate for SBOProtocol Please Specify:->Standard ProtocolWill this procedure require oral contrast?->Yes [facility] : 1975 Sex: FAddendum BeginsREPORT STATUS:A Pneumoperitoneum findings were relayed to PANTERA NAVARRO MD at 9:51 AM on 12/31/2022 Signed: Renetta Novoa Verified Date/Time: 12/31/2022 11:03:59 Reading Location: [facility] Diagnostic Imaging Reading Room - [place] [id number], ABDOMEN \\T\\ PELVIS, WITHOUT IV CONTRAST HISTORY: Abdominal distensionEvaluatefor SBO COMPARISON: 12/24/2022 CT abdomen pelvis TECHNIQUE: Computer tomography of the abdomen and pelvis without intravenous contrast. Dose modulation, iterative reconstruction, and/or weight-based adjustment of the mA/kV was utilized to reduce the radiation dose to as low as reasonably achievable. FINDINGS: Lack of intravenous contrast compromises evaluation of perfusion and for isodense lesions. Lower Thorax: Partial bilateral lower lobe atelectasis and streaky subsegmental right upper lobe atelectasis. Catheter tip in the superior vena cava Liver: Unremarkable.Gallbladder and bile ducts: Surgically absent gallbladder. No biliary dilatation. Spleen: Unremarkable. Pancreas: Unremarkable. Adrenals: UnremarkableKidneys and ureters: Unremarkable. Bowel: An appendicolith without evidence for acute appendicitis. No evidence for high-grade small bowel obstruction. A few borderline dilated small bowelloops at the upper limits of normal for diameter without discrete transition point. Bladder: Unremarkable.Reproductive organs: A 4.8 cm lesion which abuts the low uterine segment in the left adnexa, unchanged from 12/24/2022, appears to be separate from the left ovary. Lymph nodes: Unremarkable. Peritoneum: Moderate amount of pneumoperitoneum. Punctate locules of gas throughout the omentum mostly inferiorly. A small amount of free fluid throughout the abdomen and pelvis, a few punctate foci of gas within the fluid in the pelvis. Vessels: Unremarkable. Abdominal wall: Unremarkable.Bones: Unremarkable. IMPRESSION: Lack of intravenous contrast compromises evaluation of perfusion and for isodense lesions. 1.Pneumoperitoneum concerning for perforated hollow viscus. Numerous small foci of gas throughoutthe greater omentum. A few small foci of gas within the small amount of free fluid in the pelvis. 2.No evidence for high-grade small bowel obstruction. A few borderline dilated small bowel loops at theupper limits of normal for diameter without discrete transition point which are likely incidental orrelated to ileus. 3.A 4.8 cm left adnexal lesion, possibly a pedunculated fibroid, please follow-up with pelvic ultrasound. Signed: Renetta Novoa Verified Date/Time: 12/31/2022 09:55:52 Reading Location: [facility] Diagnostic Imaging Reading Room - [place] [address] POCT-GLUCOSE [id number] 10:41:08 Test Item Value Reference Range Interpretation Comments POC-GLUCOSE METER 141 mg/dL 70-110 H : TESTED A T [facility] 6720 (BEAKER) (test code = ROZ Gutiérrez [facility], 1538) [id number]: Security Patrol Officer/Techni waylon ID = [id number] for Alfred Hess (CELLAVISION MANUAL DIFF)2022-12-31 09:51:27 Test Item Value Reference Range Interpretation Comments NEUTROPHILS - REL 85 % (CELLAVISION)(BEAKER) (test code = 2816) LYMPHOCYTES - REL 5 % (CELLAVISION)(BEAKER) (test code = 2817) MONOCYTES - REL 4 % (CELLAVISION)(BEAKER) (test code = 2818) BANDS - REL (CELLAVISION)(BEAKER) 6 % 0-10 (test code = 2826) NEUTROPHILS - ABS 15.39 K/ul 1.56-6.13 H (CELLAVISION)(BEAKER) (test code = 2830) LYMPHOCYTES - ABS 0.91 K/ul 1.18-3.74 L (CELLAVISION)(BEAKER) (test code = 2831) MONOCYTES - ABS 0.72 K/uL 0.24-0.36 H (CELLAVISION)(BEAKER) (test code = 2832) BANDS - ABS (CELLAVISION)(BEAKER) 1.09 K/uL 0.00-0.80 H (test code = 2840) TOTAL COUNTED (BEAKER) (test code 100 = 1351) MANUAL NRBC PER 100 CELLS 1 /100 WBC 0-0 H (BEAKER) (test code = 1353) WBC MORPHOLOGY (BEAKER) (test Normal code = 487) PLT MORPHOLOGY (BEAKER) (test Normal code = 486) POLYCHROMATOPHILLIC RBCS(BEAKER) 3+ many (test code = 478) ANISOCYTOSIS (BEAKER) (test code 2+ moderate = 961) MICROCYTES (BEAKER) (test code = 2+ moderate 965) POIKILOCYTES (BEAKER) (test code 1+ few = 966) ELLIPTOCYTES (BEAKER) (test code 1+ few = 962) PLATELET CONCENTRATION Adequate (CELLAVISION)(BEAKER) (test code = 3438) Security Patrol Officer ID - [id number] ID - saray Chen comments: Slide comments:CBC W/PLT COUNT & AUTO [id number] 09:51:25 Test Item Value Reference Range Interpretation Comments WHITE BLOOD CELL COUNT (BEAKER) 18.1 K/ L 3.5-10.5 H (test code = 775) RED BLOOD CELL COUNT (BEAKER) 2.49 M/ L 3.93-5.22 L (test code = 761) HEMOGLOBIN (BEAKER) (test code = 7.7 GM/DL 11.2-15.7 L 410) HEMATOCRIT (BEAKER) (test code = 24.7 % 34.1-44.9 L 411) MEAN CORPUSCULAR VOLUME (BEAKER) 99 fL 79-95 H (test code = 753) MEAN CORPUSCULAR HEMOGLOBIN 30.9 pg 25.6-32.2 (BEAKER) (test code = 751) MEAN CORPUSCULAR HEMOGLOBIN CONC 31.2 GM/DL 32.2-35.5 L (BEAKER) (test code = 752) RED CELL DISTRIBUTION WIDTH 22.9 % 11.7-14.4 H (BEAKER) (test code = 412) PLATELET COUNT (BEAKER) (test 192 K/CU MM 150-450 code = 756) MEAN PLATELET VOLUME (BEAKER) 12.7 fL 9.4-12.3 H (test code = 754) NUCLEATED RED BLOOD CELLS 2 /100 WBC 0-0 H (BEAKER) (test code = 413) [id number] 09:37:09 Test Item Value Reference Range Interpretation Comments PROTIME (BEAKER) (test code = 14.0 seconds 11.9-14.2 759) INR (BEAKER) (test code = 370) 1.15 <=5.90 PARTIAL THROMBOPLASTIN TIME 29.4 seconds 22.5-36.0 (BEAKER) (test code = 760) RECOMMENDED COUMADIN/WARFARIN INR THERAPY RANGESSTANDARD DOSE: 2.0 - 3.0 Includes: PROPHYLAXIS for venous thrombosis, systemic embolization; TREATMENT for venous thrombosis and/or pulmonary embolus.HIGH RISK: Target INR is 2.5-3.5 for patients with mechanical heart valves.[id number] 09:36:52 Test Item Value Reference Range Interpretation Comments FIBRINOGEN LEVEL (BEAKER) (test 555 mg/dl 225-434 H code = 658) RETICULOCYTE [id number] 09:30:56 Test Item Value Reference Range Interpretation Comments RETICULOCYTE COUNT PCT (BEAKER) (test 17.2 % 0.5-1.7 H code = 575) Security Patrol Officer ID - [id number] ID - [id number], [id number] 09:22:08 Test Item Value Reference Range Interpretation Comments CALCIUM IONIZED (BEAKER) (test 1.27 mmol/L 1.12-1.27 code = 698) PH, BLOOD (BEAKER) (test code = 7.40 0690) POCT-GLUCOSE [id number] 06:51:02 Test Item Value Reference Range Interpretation Comments POC-GLUCOSE METER 201 mg/dL 70-110 H : TESTED A T [facility] 6720 (BEAKER) (test code = ROZ IBARRA 1538) [address]: Security Patrol Officer/Techni waylon ID = [id number] for Azucena Elkins COMPREHENSIVE METABOLIC [id number] 05:46:26 Test Item Value Reference Range Interpretation Comments TOTAL PROTEIN 4.9 gm/dL 6.0-8.3 L (BEAKER) (test code = 770) ALBUMIN (BEAKER) 2.4 g/dL 3.5-5.0 L (test code = 1145) ALKALINE 230 U/L 40-150 H PHOSPHATASE (BEAKER) (test code = 346) BILIRUBIN TOTAL 2.2 mg/dL 0.2-1.2 H (BEAKER) (test code = 377) SODIUM (BEAKER) 129 meq/L 136-145 L (test code = 381) POTASSIUM (BEAKER) 4.9 meq/L 3.5-5.1 (test code = 379) CHLORIDE (BEAKER) 94 meq/L 98-107 L (test code = 382) CO2 (BEAKER) (test 21 meq/L 22-29 L code = 355) BLOOD UREA 63 mg/dL 7-21 H NITROGEN (BEAKER) (test code = 354) CREATININE 3.59 mg/dL 0.57-1.25 H (BEAKER) (test code = 358) GLUCOSE RANDOM 186 mg/dL 70-105 H (BEAKER) (test code = 652) CALCIUM (BEAKER) 10.2 mg/dL 8.4-10.2 (test code = 697) AST (SGOT) 33 U/L 5-34 (BEAKER) (test code = 353) ALT (SGPT) 30 U/L 6-55 (BEAKER) (test code = 347) EGFR (BEAKER) 15 Interpretatio n of eGFR (test code = [...] not appl icable for dialysis patien ts Security Patrol Officer ID - BSLACTATE DEHYDROGENASE (LDH)2022-12-31 05:45:56 Test Item Value Reference Range Interpretation Comments LACTATE DEHYDROGENASE (BEAKER) (test 557 U/L 125-220 H code = 635) Security Patrol Officer ID - [id number] 05:45:55 Test Item Value Reference Range Interpretation Comments PHOSPHORUS (BEAKER) (test code = 7.7 mg/dL 2.3-4.7 H 604) Security Patrol Officer ID - [id number] 05:45:53 Test Item Value Reference Range Interpretation Comments MAGNESIUM (BEAKER) (test code = 3.8 mg/dL 1.6-2.6 H 627) Security Patrol Officer ID - [id number] 05:39:51 Test Item Value Reference Range Interpretation Comments HAPTOGLOBIN (BEAKER) (test code = 229 mg/dL 14-258 366) Security Patrol Officer ID - BSPOCT-GLUCOSE [id number] 20:43:02 Test Item Value Reference Range Interpretation Comments POC-GLUCOSE METER 229 mg/dL 70-110 H : TESTED A T [facility] 6720 (BEAKER) (test code = [place], 1538) [address]: Security Patrol Officer/Techni waylon ID = [id number] for Senia Fritz RAD, CHEST, 1 VIEW, NON [id number] 20:02:00Reason for exam:->SobShould this be performed at the bedside?->Yes [facility] 1975 Sex: FFINAL REPORT Exam: RAD, CHEST, 1 VIEW, NON DEPTDate: 12/30/2022 7:59 PM Indication: Shortness of breath Comparison: Chest x-ray 12/29/2022 IMPRESSION: Lines/Tubes:Stable position of right internal jugular central venous catheter with tip in the distal SVC. EKG leads overlie the lowerthorax Lungs:Persistent low lung volumes. Perihilar and bibasilar airspace opacities are favored to r epresent atelectasis. Interstitial opacities most prominent in the bilateral lower lungs may represent edema or infection. Pleura:Suspect small right pleural effusion. No pneumothorax. Heart/Mediastinum:The cardiac silhouette is unchanged in size. Bones/Soft Tissues: No acute osseous injury. Abdomen: Unremarkable. Signed: Pawan Macarioeport Verified Date/Time: 12/30/2022 20:02:29 POCT-GLUCOSE [id number] 16:53:49 Test Item Value Reference Range Interpretation Comments POC-GLUCOSE METER 234 mg/dL 70-110 H : TESTED A T [facility] 6720 (BEAKER) (test code = ROZ Gutiérrez [facility], 1538) [address]: Security Patrol Officer/Techni waylon ID = [id number] for Emily Flores BLOOD [id number] 13:02:08 Test Item Value Reference Range Interpretation Comments CULTURE (BEAKER) NEGIN A From Aerobi c Bottle (test code = 1095) TROPICALIS Only Cand lorena tropicalis 5-Flurocytosine See_Comment S [Automated message] (test code = 237) The system which generated this result transmitted ref erence range: Suscepti ble 0-4 , Intermedi ate <0 or >4 , Resista nt >16 . The reference range was not used to interpret this result as normal/abnor mal. Amphotericin B See_Comment [Automated m essage] (test code = 136) The system which generated this result transmitted ref erence range: Suscepti ble >0-0 , No Interpretations Established <=0 or >0 . The reference range was not used to interpret this result as normal/abnor mal. Caspofungin See_Comment S [Automated [place]] acetate (test code The syste m which = 141) generated this result transmitted ref erence range: Suscepti ble 0-0.25 , Non-susceptible <0 or >.25 , Resistan t . The reference r stefanie was not used to interpret this result as normal/abnor mal. Fluconazole (test See_Comment S [Automate d message] code = 143) The system [facility] [employer] generated this result transmitted ref erence range: Suscepti ble 0-2 , Dose Depe ndent Susceptible <0 or >2 , Resi. The ref erence range was not u sed to interpret this result as normal/abnor mal. Itraconazole (test See_Comment S [Automat ed message] code = 146) The system [employer] generated this result transmitted ref erence range: Suscepti ble 0-0.125 , Dose Dependent Susce ptible <0 or >.125. Th e reference range was not used to int erpret this result as normal/abnormal . Micafungin (test See_Comment S [Automated message] code = 148) The system [facility] [employer] generated this result transmitted ref erence range: Suscepti ble 0-0.25 , Non-susceptible <0 or >.25 , Resistan t . The reference r stefanie was not used to interpret this result as normal/abnor mal. Posaconazole (test See_Comment [Automat ed message] code = 152) The system [facility] [employer] generated this result transmitted ref erence range: Suscepti ble >0-0 , No Interpretations Established <=0 or >0 . The reference range was not used to interpret this result as normal/abnor mal. Voriconazole (test See_Comment S [Automat ed message] code = 153) The system [facility] [employer] generated this result transmitted ref erence range: Suscepti ble 0-0.12 , Dose Dependent Susce ptible <0 or >.12 ,. T he reference range was not used to int erpret this result as normal/abnormal . GRAM STAIN RESULT From aerobic (BEAKER) (test bottle only: code = 1123) budding yeast POCT-GLUCOSE [id number] 11:57:31 Test Item Value Reference Range Interpretation Comments POC-GLUCOSE METER 206 mg/dL 70-110 H : TESTED A T [facility] 6720 (BEAKER) (test code = [place], 1538) [address]: Security Patrol Officer/Techni waylon ID = [id number] for Emily Flores POCT-GLUCOSE [id number] 11:28:49 Test Item Value Reference Range Interpretation Comments POC-GLUCOSE METER 156 mg/dL 70-110 H : TESTED A T [facility] 6720 (BEAKER) (test code = [place], 1538) [address]: Security Patrol Officer/Techni waylon ID = [id number] for Azucena Elkins RAD, ABDOMEN/KUB, 1 VIEW [id number] 09:02:00Reason for exam:->abdominal painShould this be performed at the bedside?->Yes [facility] : 1975 Sex: FFINAL REPORT RAD, ABDOMEN/KUB, 1 VIEW AP CLINICAL HISTORY: abdominal pain TECHNIQUE: RAD, ABDOMEN/KUB, 1 VIEW AP COMPARISON: 12/29/2022 IMPRESSION:Reduced gas-distended stomach. Gasfilled large and small bowel loops are similar and nonspecific in appearance, correlate for ileus. Limited supine imaging without gross evidence of free air. Signed: Zachariah Lopez MDReport Verified Date/Time: 12/30/2022 09:02:41 COMPREHENSIVE METABOLIC [id number] 03:00:44 Test Item Value Reference Range Interpretation Comments TOTAL PROTEIN 4.9 gm/dL 6.0-8.3 L (BEAKER) (test code = 770) ALBUMIN (BEAKER) 2.6 g/dL 3.5-5.0 L (test code = 1145) ALKALINE 200 U/L 40-150 H PHOSPHATASE (BEAKER) (test code = 346) BILIRUBIN TOTAL 2.7 mg/dL 0.2-1.2 H (BEAKER) (test code = 377) SODIUM (BEAKER) 135 meq/L 136-145 L (test code = 381) POTASSIUM (BEAKER) 4.0 meq/L 3.5-5.1 (test code = 379) CHLORIDE (BEAKER) 98 meq/L 98-107 (test code = 382) CO2 (BEAKER) (test 25 meq/L 22-29 code = 355) BLOOD UREA 38 mg/dL 7-21 H NITROGEN (BEAKER) (test code = 354) CREATININE 2.42 mg/dL 0.57-1.25 H (BEAKER) (test code = 358) GLUCOSE RANDOM 145 mg/dL 70-105 H (BEAKER) (test code = 652) CALCIUM (BEAKER) 8.4 mg/dL 8.4-10.2 (test code = 697) AST (SGOT) 34 U/L 5-34 (BEAKER) (test code = 353) ALT (SGPT) 32 U/L 6-55 (BEAKER) (test code = 347) EGFR (BEAKER) 24 Interpretatio n of eGFR (test code = [...] not appl icable for dialysis patien ts Security Patrol Officer ID - BSSpecimen slightly [id number] 03:00:25 Test Item Value Reference Range Interpretation Comments HAPTOGLOBIN (BEAKER) (test code = 187 mg/dL 14-258 366) Security Patrol Officer ID - BSLACTATE DEHYDROGENASE (LDH)2022-12-30 02:55:23 Test Item Value Reference Range Interpretation Comments LACTATE DEHYDROGENASE (BEAKER) (test 645 U/L 125-220 H code = 635) Security Patrol Officer ID - [id number] 02:55:22 Test Item Value Reference Range Interpretation Comments PHOSPHORUS (BEAKER) (test code = 6.4 mg/dL 2.3-4.7 H 604) Security Patrol Officer ID - [id number] 02:55:21 Test Item Value Reference Range Interpretation Comments MAGNESIUM (BEAKER) (test code = 2.5 mg/dL 1.6-2.6 627) Security Patrol Officer ID - BSRETICULOCYTE [id number] 02:51:04 Test Item Value Reference Range Interpretation Comments RETICULOCYTE COUNT PCT (BEAKER) (test 20.5 % 0.5-1.7 H code = 575) Security Patrol Officer ID - [id number] ID - [id number]/[id number] 02:44:57 Test Item Value Reference Range Interpretation Comments PROTIME (BEAKER) (test code = 14.7 seconds 11.9-14.2 H 759) INR (BEAKER) (test code = 370) 1.22 <=5.90 PARTIAL THROMBOPLASTIN TIME 28.0 seconds 22.5-36.0 (BEAKER) (test code = 760) RECOMMENDED COUMADIN/WARFARIN INR THERAPY RANGESSTANDARD DOSE: 2.0 - 3.0 Includes: PROPHYLAXIS for venous thrombosis, systemic embolization; TREATMENT for venous thrombosis and/or pulmonary embolus.HIGH RISK: Target INR is 2.5-3.5 for patients with mechanical heart valves.[id number] 02:44:40 Test Item Value Reference Range Interpretation Comments FIBRINOGEN LEVEL (BEAKER) (test 386 mg/dl 225-434 code = 658) CBC (HEMOGRAM ONLY)2022-12-30 02:40:09 Test Item Value Reference Range Interpretation Comments WHITE BLOOD CELL COUNT (BEAKER) 28.7 K/ L 3.5-10.5 H (test code = 775) RED BLOOD CELL COUNT (BEAKER) 2.47 M/ L 3.93-5.22 L (test code = 761) HEMOGLOBIN (BEAKER) (test code = 7.9 GM/DL 11.2-15.7 L 410) HEMATOCRIT (BEAKER) (test code = 25.2 % 34.1-44.9 L 411) MEAN CORPUSCULAR VOLUME (BEAKER) 102 fL 79-95 H (test code = 753) MEAN CORPUSCULAR HEMOGLOBIN 32.0 pg 25.6-32.2 (BEAKER) (test code = 751) MEAN CORPUSCULAR HEMOGLOBIN CONC 31.3 GM/DL 32.2-35.5 L (BEAKER) (test code = 752) RED CELL DISTRIBUTION WIDTH 25.3 % 11.7-14.4 H (BEAKER) (test code = 412) PLATELET COUNT (BEAKER) (test 159 K/CU MM 150-450 code = 756) MEAN PLATELET VOLUME (BEAKER) 12.5 fL 9.4-12.3 H (test code = 754) NUCLEATED RED BLOOD CELLS 2 /100 WBC 0-0 H (BEAKER) (test code = 413) POCT-GLUCOSE [id number] 21:05:36 Test Item Value Reference Range Interpretation Comments POC-GLUCOSE METER 158 mg/dL 70-110 H : TESTED A T [facility] 6720 (BEAKER) (test code [facility], = 1538) [address]: Security Patrol Officer/Techni waylon ID = [id number] for RANI MORRISMOL CREATINE KINASE (CK)2022-12-29 20:02:17 Test Item Value Reference Range Interpretation Comments CREATINE KINASE TOTAL (BEAKER) (test 178 U/L 29-200 code = 380) Security Patrol Officer ID - BSCBC (HEMOGRAM ONLY)2022-12-29 18:23:40 Test Item Value Reference Range Interpretation Comments WHITE BLOOD CELL COUNT (BEAKER) 26.5 K/ L 3.5-10.5 H (test code = 775) RED BLOOD CELL COUNT (BEAKER) 2.46 M/ L 3.93-5.22 L (test code = 761) HEMOGLOBIN (BEAKER) (test code = 7.8 GM/DL 11.2-15.7 L 410) HEMATOCRIT (BEAKER) (test code = 24.8 % 34.1-44.9 L 411) MEAN CORPUSCULAR VOLUME (BEAKER) 101 fL 79-95 H (test code = 753) MEAN CORPUSCULAR HEMOGLOBIN 31.7 pg 25.6-32.2 (BEAKER) (test code = 751) MEAN CORPUSCULAR HEMOGLOBIN CONC 31.5 GM/DL 32.2-35.5 L (BEAKER) (test code = 752) RED CELL DISTRIBUTION WIDTH 25.5 % 11.7-14.4 H (BEAKER) (test code = 412) PLATELET COUNT (BEAKER) (test 215 K/CU MM 150-450 code = 756) MEAN PLATELET VOLUME (BEAKER) 12.2 fL 9.4-12.3 (test code = 754) NUCLEATED RED BLOOD CELLS 2 /100 WBC 0-0 H (BEAKER) (test code = 413) POCT-GLUCOSE [id number] 17:45:14 Test Item Value Reference Range Interpretation Comments POC-GLUCOSE METER 210 mg/dL 70-110 H : TESTED A T [facility] 6720 (BEAKER) ([facility], = 1538) [address]: Security Patrol Officer/Techni waylon ID = [id number] for Kiran jay Zoey ELLIE, CHEST, 1 VIEW, NON [id number] 17:06:00Reason for exam:->R IJ placementShould this be performed at the bedside?->Yes [facility] : 1975 Sex: FFINAL REPORT Chest, one view. HISTORY: R IJ placement COMPARISON: Radiograph from 12/27/2022 IMPRESSION: Interval placement of a right IJ central venous catheter with the tip over the lower SVC. There is some mild bilateral perihilar lung opacities which are most likely atelectasis. The prominent interstitial opacities of lungs are most likely due to interstitial pulmonary edema, but infection is the differential. Elevation of the right hemidiaphragm. The cardiac silhouette is unchanged in size. No acute bone abnormality. Signed: Colt Thomas MDReport Verified Date/Time: 12/29/2022 17:06:43 RAD, ABDOMEN/KUB, 1 VIEW AP 2022-12-29 14:54:00Reason for exam:->Distension [facility] : 1975 Sex: FFINAL REPORT RAD, ABDOMEN/KUB, 1 VIEW AP CLINICAL HISTORY: Distension TECHNIQUE: RAD, ABDOMEN/KUB, 1 VIEW AP COMPARISON: 12/27/2022 IMPRESSION:Increased gaseous distention of stomach. Gas filled large and small bowel loops are similar and nonspecific in appearance. Correlate for gastroparesis with gastroenterocolitis. Interval removal of left femoral catheter. No free air. Signed: Zachariah Lopezeport Verified Date/Time: 12/29/2022 14:54:19 POCT- GLUCOSE [id number] 11:48:13 Test Item Value Reference Range Interpretation Comments POC-GLUCOSE METER 148 mg/dL 70-110 H : TESTED A T [facility] 6720 (SANDRAEARL) (test code [facility], = 1538) [address]: Security Patrol Officer/Techni waylon ID = [id number] for Gasg Zoey jay (CELLAVISION MANUAL DIFF)2022-12-29 08:05:42 Test Item Value Reference Range Interpretation Comments NEUTROPHILS - REL 91 % (CELLAVISION)(RHEA) (test code = 2816) LYMPHOCYTES - REL 6 % (CELLAVISION)(BEAKER) (test code = 2817) MONOCYTES - REL 1 % (CELLAVISION)(BEAKER) (test code = 2818) BANDS - REL (CELLAVISION)(BEAKER) 2 % 0-10 (test code = 2826) NEUTROPHILS - ABS 21.39 K/ul 1.56-6.13 H (CELLAVISION)(BEAKER) (test code = 2830) LYMPHOCYTES - ABS 1.41 K/ul 1.18-3.74 (CELLAVISION)(BEAKER) (test code = 2831) MONOCYTES - ABS 0.24 K/uL 0.24-0.36 (CELLAVISION)(BEAKER) (test code = 2832) BANDS - ABS (CELLAVISION)(BEAKER) 0.47 K/uL 0.00-0.80 (test code = 2840) TOTAL COUNTED (BEAKER) (test code 100 = 1351) MANUAL NRBC PER 100 CELLS 3 /100 WBC 0-0 H (BEAKER) (test code = 1353) WBC MORPHOLOGY (BEAKER) (test Normal code = 487) GIANT PLATELETS (BEAKER) (test Present code = 313) POLYCHROMATOPHILLIC RBCS(BEAKER) 3+ many (test code = 478) ANISOCYTOSIS (BEAKER) (test code 2+ moderate = 961) MICROCYTES (BEAKER) (test code = 2+ moderate 965) MACROCYTES (BEAKER) (test code = 1+ few 964) ARTIFACT (CELLAVISION)(BEAKER) Present (test code = 3432) PLATELET CONCENTRATION Adequate (CELLAVISION)(BEAKER) (test code = 3438) Security Patrol Officer ID - saray Chen comments: Slide comments:CBC W/PLT COUNT & AUTO [id number] 08:05:40 Test Item Value Reference Range Interpretation Comments WHITE BLOOD CELL COUNT (BEAKER) 23.5 K/ L 3.5-10.5 H (test code = 775) RED BLOOD CELL COUNT (BEAKER) 2.08 M/ L 3.93-5.22 L (test code = 761) HEMOGLOBIN (BEAKER) (test code = 6.8 GM/DL 11.2-15.7 L 410) HEMATOCRIT (BEAKER) (test code = 21.5 % 34.1-44.9 L 411) MEAN CORPUSCULAR VOLUME (BEAKER) 103 fL 79-95 H (test code = 753) MEAN CORPUSCULAR HEMOGLOBIN 32.7 pg 25.6-32.2 H (BEAKER) (test code = 751) MEAN CORPUSCULAR HEMOGLOBIN CONC 31.6 GM/DL 32.2-35.5 L (BEAKER) (test code = 752) RED CELL DISTRIBUTION WIDTH 26.2 % 11.7-14.4 H (BEAKER) (test code = 412) PLATELET COUNT (BEAKER) (test 206 K/CU MM 150-450 code = 756) MEAN PLATELET VOLUME (BEAKER) 12.3 fL 9.4-12.3 (test code = 754) NUCLEATED RED BLOOD CELLS 2 /100 WBC 0-0 H (BEAKER) (test code = 413) POCT-GLUCOSE [id number] 07:47:45 Test Item Value Reference Range Interpretation Comments POC-GLUCOSE METER 154 mg/dL 70-110 H : [facility] (test code [facility], = 1538) [address]: Security Patrol Officer/Techni waylon ID = [id number] for Kiran jay Zoey Urinalysis with Microscopic If [id number] 06:34:52 Test Item Value Reference Range Interpretation Comments Color, UA (test code = 5778-6) Brown Clarity, UA (test code = 5767-9) Cloudy Specific [place], UA (test code = 1.015 1.001-1.035 5811-5) pH, UA (test code = 5803-2) 6.0 5.0-8.0 Protein, UA (test code = 13879-9) >=300 mg/dL negative A Glucose, UA (test code = 365) 100 mg/dL Negative A Ketones, UA (test code = 2514-8) 15 mg/dL negative A Bilirubin, UA (test code = Positive Negative A 67354-8) Blood, UA (test code = 67161-2) Large Negative A Nitrite, UA (test code = 5802-4) Negative Negative Leukocytes, UA (test code = Negative Negative 5799-2) Urobilinogen, UA (test code = 1.0 03377-2) Specimen Source (test code = 2795) Lab Interpretation (test code = Abnormal 32742-6) [facility] [id number] 06:34:52 Test Item Value Reference Range Interpretation Comments COLOR (BEAKER) (test code = 470) Brown CLARITY (BEAKER) (test code = Cloudy 469) SPECIFIC GRAVITY UA (BEAKER) 1.015 1.001-1.035 (test code = 468) PH UA (BEAKER) (test code = 467) 6.0 5.0-8.0 PROTEIN UA (BEAKER) (test code = >=300 mg/dL negative A 464) GLUCOSE UA (BEAKER) (test code = 100 mg/dL Negative A 365) KETONES UA (BEAKER) (test code = 15 mg/dL negative A 371) BILIRUBIN UA (BEAKER) (test code Positive Negative A = 462) BLOOD UA (BEAKER) (test code = Large Negative A 461) NITRITE UA (BEAKER) (test code = Negative Negative 465) LEUKOCYTE ESTERASE UA (BEAKER) Negative Negative (test code = 466) UROBILINOGEN UA (BEAKER) (test 1.0 code = 463) SOURCE(BEAKER) (test code = 2795) Urinalysis Microscopic [id number] 06:34:44 Test Item Value Reference Range Interpretation Comments RBC, UA (test 9 See_Comment [Automated me ssage] code = 25005-4) The system w [facility] generated this result transmitted ref erence range: /HPF. Th e reference range was not used to int erpret this result as normal/abnormal . WBC, UA (test 11 See_Comment [Automated me ssage] code = 5821-4) The system [facility] generated this result transmitted ref erence range: /HPF. Th e reference range was not used to int erpret this result as normal/abnormal . Squam Epithel, 1 See_Comment [Automated m essage] UA (test code = The system w [facility] 88640-6) generated this result transmitted ref erence range: /HPF. Th e reference range was not used to int erpret this result as normal/abnormal . Yeast (test Many code = 35482-0) AREN (test code [employer] ID - tech = AREN) [facility] [id number] 06:34:44 Test Item Value Reference Range Interpretation Comments RBC UA (BEAKER) (test code = 519) 9 /HPF WBC UA (BEAKER) (test code = 520) 11 /HPF SQUAMOUS EPITHELIAL (BEAKER) (test 1 /HPF code = 516) YEAST (BEAKER) (test code = 1585) Many Security Patrol Officer ID - techRETICULOCYTE [id number] 04:27:54 Test Item Value Reference Range Interpretation Comments RETICULOCYTE COUNT PCT (BEAKER) (test 16.5 % 0.5-1.7 H code = 575) Security Patrol Officer ID - [id number] METABOLIC [id number] 04:18:08 Test Item Value Reference Range Interpretation Comments SODIUM (BEAKER) 131 meq/L 136-145 L (test code = 381) POTASSIUM 4.5 meq/L 3.5-5.1 (BEAKER) (test code = 379) CHLORIDE (BEAKER) 96 meq/L 98-107 L (test code = 382) CO2 (BEAKER) 21 meq/L 22-29 L (test code = 355) BLOOD UREA 61 mg/dL 7-21 H NITROGEN (BEAKER) (test code = 354) CREATININE 3.61 mg/dL 0.57-1.25 H (BEAKER) (test code = 358) GLUCOSE RANDOM 172 mg/dL 70-105 H (BEAKER) (test code = 652) CALCIUM (BEAKER) 7.7 mg/dL 8.4-10.2 L (test code = 697) EGFR (BEAKER) 15 Interpretatio n of eGFR (test code = [...] not appl icable for dialysis patien ts Security Patrol Officer ID - NEELAM WLACTATE DEHYDROGENASE (LDH)2022-12-29 04:16:57 Test Item Value Reference Range Interpretation Comments LACTATE DEHYDROGENASE (BEAKER) (test 649 U/L 125-220 H code = 635) Security Patrol Officer ID - NEELAM WHEPATIC FUNCTION [id number] 04:16:56 Test Item Value Reference Range Interpretation Comments TOTAL PROTEIN (BEAKER) (test code = 4.6 gm/dL 6.0-8.3 L 770) ALBUMIN (BEAKER) (test code = 1145) 2.6 g/dL 3.5-5.0 L BILIRUBIN TOTAL (BEAKER) (test code 2.3 mg/dL 0.2-1.2 H = 377) BILIRUBIN DIRECT (BEAKER) (test 1.6 mg/dL 0.1-0.5 H code = 706) ALKALINE PHOSPHATASE (BEAKER) (test 192 U/L 40-150 H code = 346) AST (SGOT) (BEAKER) (test code = 39 U/L 5-34 H 353) ALT (SGPT) (BEAKER) (test code = 39 U/L 6-55 347) Security Patrol Officer ID - NEELAM [id number] 04:16:54 Test Item Value Reference Range Interpretation Comments PHOSPHORUS (BEAKER) (test code = 8.9 mg/dL 2.3-4.7 H 604) Security Patrol Officer ID - NEELAM [id number] 04:16:53 Test Item Value Reference Range Interpretation Comments MAGNESIUM (BEAKER) (test code = 2.5 mg/dL 1.6-2.6 627) Security Patrol Officer ID - NEELAM [id number] 04:12:55 Test Item Value Reference Range Interpretation Comments HAPTOGLOBIN (BEAKER) (test code = 141 mg/dL 14-258 366) Security Patrol Officer ID - ADMINPT/[id number] 04:11:32 Test Item Value Reference Range Interpretation Comments PROTIME (BEAKER) (test code = 13.7 seconds 11.9-14.2 759) INR (BEAKER) (test code = 370) 1.07 <=5.90 PARTIAL THROMBOPLASTIN TIME 25.5 seconds 22.5-36.0 (BEAKER) (test code = 760) RECOMMENDED COUMADIN/WARFARIN INR THERAPY RANGESSTANDARD DOSE: 2.0 - 3.0 Includes: PROPHYLAXIS for venous thrombosis, systemic embolization; TREATMENT for venous thrombosis and/or pulmonary embolus.HIGH RISK: Target INR is 2.5-3.5 for patients with mechanical heart valves.[id number] 04:11:31 Test Item Value Reference Range Interpretation Comments FIBRINOGEN LEVEL (BEAKER) (test 238 mg/dl 225-434 code = 658) CALCIUM, [id number] 03:56:40 Test Item Value Reference Range Interpretation Comments CALCIUM IONIZED (BEAKER) (test 1.03 mmol/L 1.12-1.27 L code = 698) PH, BLOOD (AKER) (test code = 7.44 1810) POCT-GLUCOSE [id number] 03:54:47 Test Item Value Reference Range Interpretation Comments POC-GLUCOSE METER 178 mg/dL 70-110 H : TESTED A T [facility] 6720 (Upside) (test code = [facility]) [id number]: Security Patrol Officer/Techni waylon ID = [id number] for Aiyana ttrell, [place] POCT-GLUCOSE [id number] 21:30:35 Test Item Value Reference Range Interpretation Comments POC-GLUCOSE METER 319 mg/dL 70-110 H : TESTED A T [facility] 6720 (BEAKER) (test code = [facility], 1538) [address]: Security Patrol Officer/Techni waylon ID = [id number] for Aiyana ttrell, [place] POCT-GLUCOSE [id number] 14:37:58 Test Item Value Reference Range Interpretation Comments POC-GLUCOSE METER 259 mg/dL 70-110 H : TESTED A T [facility] 6720 (BEAKER) (test code = [facility], 1538) [address]: Security Patrol Officer/Techni waylon ID = [id number] for Wi lia, Anayeli [employer] 2D [id number] 08:41:00 Test Item Value Reference Range Interpretation Comments Ejection Fraction Est EF is > 55% (test code = 2574) Radiology Study observation (narrative) (test code = 42015-8) PXN (test code = System, Provider Not In - PXN) 12/28/2022 Transthoracic Echocardiography Report (TTE) Demographics Patient Name LIZBET RAHMAN Date of Study 12/27/2022 SHAST[place] Gender Female Visit Number [id number] Race Unknown Room Number 7219 Number Date of 1975 Referring Physician Twila Thakkar Age 47 year(s) Bilingual Research Interviewer Lorenza Lorenzana [facility] Interpreting Fidelia Ceballos MD Physician Procedure Type of Study TTE procedure:LIMITED 2D ECHOCARDIOGRAM (SABRINA) Indications:Suspected infective endocarditis with positive cultures or newmurmur.Clinical HistoryAIHA, ASTHMA, HTN, HYPOTHYROID, OBESITY, MJ, DX0Gcdctw: 62 inches Weight: 102.06 kg (225 lbs) BSA: 2.01 m^2 BMI: 41.15kg/m^2HR: 102 bpm BP: 100/57 mmHg Summary LIMITED 2D Echo for evaluation of the valves in patient with fungemia. Technically difficult and limited exam. Patient supine, unable to turn. 1. Within the limitation of a TTE study, no significant lesions identified on the visualized aortic, mitral and tricuspid valves. 2. The left ventricle is chamber size (by PSLAX dimension) is normal . Mild concentric LV hypertrophy. In the limited views, no significant regional wall motion noted. Overall LVEF by qualitative evaluation appears normal. Estimated LVEF is > 55%. 3. In the limited views the RV appears normal in size and systolic function. RV is partially visualized. 4. LA is partially visualized. In the limited views the LA appears grossly dilated. 5. A trace of tricuspid regurgitation. Peak systolic pressure may be underestimated; partial TR signal. Estimated peak systolic pressure is at least 35-40 mmHg. The estimated RA pressure by IVC dynamics 0-5mmHg . Previous Study Compared to the prior study dated 12/17/2022, no significant changes noted. Signature Findings Rhythm/BP Regular sinus rhythm during the exam. Left Ventricle LIMITED 2D Echo for evaluation of the valves in patient with fungemia. Technically difficult and limited exam. Patient supine, unable to turn. The left ventricle is chamber size (by PSLAX dimension) is normal . Mild concentric LV hypertrophy. Suboptimal endocardial definition in the apical views preclude accurate evaluation of LV wall motion, EF. In the limited views, no significant regional wall motion noted. Overall LVEF by qualitative evaluation appears normal. Estimated LVEF is > 55%. Left Atrium LA is partially visualized. In the limited views the LA appears grossly dilated. Right Ventricle In the limited views the RV appears normal in size and systolic function. RV is partially visualized. Right Atrium The RA is partially visualized. In the limited views the RA appears grossly normal in size. Aortic Valve Normal tri-leaflet Aortic Valve. AoV cusp mobility is normal . Appears to open well. Mitral Valve Mild MV leaflet thickening. Mild mitral annular calcification. Trace MR. Tricuspid Valve TV structure is normal. A trace of tricuspid regurgitation. Peak systolic pressure may be underestimated; partial TR signal. Estimated peak systolic pressure is at least 35-40 mmHg. Pulmonic Valve PV is not well visualized. No Doppler exam. Pericardium No significant pericardial effusion is visualized. IVC/SVC/PA/PV/Pleural The inferior vena cava is partially visualized. The estimated RA pressure by IVC dynamics 0-5mmHg . Chambers/Structures Left Atrium LA Dimension: 3.5 cm Left Ventricle LVIDd: 4.7 cm LV Septum Diastolic: 1.2 cm LV PW Diastolic: 1.3 cm LVOT Diameter: 2.17 cm Right Ventricle RV Systolic Pressure: 39.34 mmHg Aorta Ao Root S of Morelia.: 3 cm Doppler/Quantitative Measurements Aortic Valve Peak Velocity: 1.84 m/s Peak Gradient: 13.54 mmHg LVOT Peak Velocity: 1.28 m/s Peak Gradient: 6.57 mmHg Mean Velocity: 0.81 m/s Mean Gradient: 3.18 mmHg LVOT Diameter: 2.17 cm LVOT VTI: 21.6 cm LVOT Area: 3.7 cm^2 LVOT SV:79.84 ml LVOT CO: 8.14 l/min LVOT CI: 4.05 l/min/m^2 Tricuspid Valve Estimated RAP: 5 mmHg TR Velocity: 2.93 m/s TR Gradient: 34.34 mmHg Pulmonic Valve Estimated PASP: 39.34 [id number] 08:26:45 Test Item Value Reference Range Interpretation Comments POC-GLUCOSE METER 174 mg/dL 70-110 H : TESTED Bryan T [facility] 6720 (BEAKER) (test code = [place], 1538) [address]: Security Patrol Officer/Techni waylon ID = [id number] for Anayeli Herr (CELLAVISION MANUAL DIFF)2022-12-28 07:20:18 Test Item Value Reference Range Interpretation Comments NEUTROPHILS - REL 94 % (CELLAVISION)(BEAKER) (test code = 2816) LYMPHOCYTES - REL 1 % (CELLAVISION)(BEAKER) (test code = 2817) MONOCYTES - REL 1 % (CELLAVISION)(BEAKER) (test code = 2818) METAMYELOCYTES - REL 1 % 0-0 H (CELLAVISION)(BEAKER) (test code = 2821) BANDS - REL (CELLAVISION)(BEAKER) 2 % 0-10 (test code = 2826) ATYPICAL LYMPHOCYTES - REL 1 % 0-0 H (CELLAVISION)(BEAKER) (test code = 2829) NEUTROPHILS - ABS 22.00 K/ul 1.56-6.13 H (CELLAVISION)(BEAKER) (test code = 2830) LYMPHOCYTES - ABS 0.23 K/ul 1.18-3.74 L (CELLAVISION)(BEAKER) (test code = 2831) MONOCYTES - ABS 0.23 K/uL 0.24-0.36 L (CELLAVISION)(BEAKER) (test code = 2832) METAMYELOCYTES - ABS 0.23 K/uL 0.00-0.00 H (CELLAVISION)(BEAKER) (test code = 2836) BANDS - ABS (CELLAVISION)(BEAKER) 0.47 K/uL 0.00-0.80 (test code = 2840) ATYPICAL LYMPHOCYTES - ABS 0.23 K/uL 0.00-0.00 H (CELLAVISION)(BEAKER) (test code = 2858) TOTAL COUNTED (BEAKER) (test code 100 = 1351) MANUAL NRBC PER 100 CELLS 5 /100 WBC 0-0 H (BEAKER) (test code = 1353) WBC MORPHOLOGY (BEAKER) (test Normal code = 487) GIANT PLATELETS (BEAKER) (test Present code = 313) POLYCHROMATOPHILLIC RBCS(BEAKER) 2+ moderate (test code = 478) ANISOCYTOSIS (BEAKER) (test code 2+ moderate = 961) MICROCYTES (BEAKER) (test code = 1+ few 965) MACROCYTES (BEAKER) (test code = 1+ few 964) ARTIFACT (CELLAVISION)(BEAKER) Present (test code = 3432) PLATELET CONCENTRATION Adequate (CELLAVISION)(BEAKER) (test code = 3438) Security Patrol Officer ID - saray Chen comments: Slide comments:CBC W/PLT COUNT & AUTO [id number] 07:19:57 Test Item Value Reference Range Interpretation Comments WHITE BLOOD CELL COUNT (BEAKER) 23.4 K/ L 3.5-10.5 H (test code = 775) RED BLOOD CELL COUNT (BEAKER) 2.06 M/ L 3.93-5.22 L (test code = 761) HEMOGLOBIN (BEAKER) (test code = 6.7 GM/DL 11.2-15.7 L 410) HEMATOCRIT (BEAKER) (test code = 20.7 % 34.1-44.9 L 411) MEAN CORPUSCULAR VOLUME (BEAKER) 101 fL 79-95 H (test code = 753) MEAN CORPUSCULAR HEMOGLOBIN 32.5 pg 25.6-32.2 H (BEAKER) (test code = 751) MEAN CORPUSCULAR HEMOGLOBIN CONC 32.4 GM/DL 32.2-35.5 (BEAKER) (test code = 752) RED CELL DISTRIBUTION WIDTH 26.5 % 11.7-14.4 H (BEAKER) (test code = 412) PLATELET COUNT (BEAKER) (test 185 K/CU MM 150-450 code = 756) MEAN PLATELET VOLUME (BEAKER) 12.1 fL 9.4-12.3 (test code = 754) NUCLEATED RED BLOOD CELLS 4 /100 WBC 0-0 H (BEAKER) (test code = 413) [id number] 05:08:45 Test Item Value Reference Range Interpretation Comments HAPTOGLOBIN (BEAKER) (test code = 113 mg/dL 14-258 366) Security Patrol Officer ID - BSBASIC METABOLIC [id number] 04:37:34 Test Item Value Reference Range Interpretation Comments SODIUM (BEAKER) 134 meq/L 136-145 L (test code = 381) POTASSIUM 4.0 meq/L 3.5-5.1 (BEAKER) (test code = 379) CHLORIDE (BEAKER) 98 meq/L 98-107 (test code = 382) CO2 (BEAKER) 25 meq/L 22-29 (test code = 355) BLOOD UREA 38 mg/dL 7-21 H NITROGEN (BEAKER) (test code = 354) CREATININE 2.30 mg/dL 0.57-1.25 H (BEAKER) (test code = 358) GLUCOSE RANDOM 159 mg/dL 70-105 H (BEAKER) (test code = 652) CALCIUM (BEAKER) 7.6 mg/dL 8.4-10.2 L (test code = 697) EGFR (BEAKER) 25 Interpretatio n of eGFR (test code = [...] not appl icable for dialysis patien ts Security Patrol Officer ID - MARCOSpecimen slightly ictericLACTATE DEHYDROGENASE (LDH) 2022-12-28 04:36:33 Test Item Value Reference Range Interpretation Comments LACTATE DEHYDROGENASE (BEAKER) (test 674 U/L 125-220 H code = 635) Security Patrol Officer ID - MARCOHEPATIC FUNCTION [id number] 04:36:32 Test Item Value Reference Range Interpretation Comments TOTAL PROTEIN (BEAKER) (test code = 4.7 gm/dL 6.0-8.3 L 770) ALBUMIN (BEAKER) (test code = 1145) 2.6 g/dL 3.5-5.0 L BILIRUBIN TOTAL (BEAKER) (test code 3.0 mg/dL 0.2-1.2 H = 377) BILIRUBIN DIRECT (BEAKER) (test 2.0 mg/dL 0.1-0.5 H code = 706) ALKALINE PHOSPHATASE (BEAKER) (test 192 U/L 40-150 H code = 346) AST (SGOT) (BEAKER) (test code = 43 U/L 5-34 H 353) ALT (SGPT) (BEAKER) (test code = 46 U/L 6-55 347) Security Patrol Officer ID - MARCOSpecimen slightly [id number] 04:36:31 Test Item Value Reference Range Interpretation Comments PHOSPHORUS (BEAKER) (test code = 5.9 mg/dL 2.3-4.7 H 604) Security Patrol Officer ID - [id number] 04:36:30 Test Item Value Reference Range Interpretation Comments MAGNESIUM (BEAKER) (test code = 2.5 mg/dL 1.6-2.6 627) Security Patrol Officer ID - [id number] 04:05:38 Test Item Value Reference Range Interpretation Comments FIBRINOGEN LEVEL (BEAKER) (test 201 mg/dl 225-434 L code = 658) [id number] 04:05:37 Test Item Value Reference Range Interpretation Comments PROTIME (BEAKER) (test code = 14.7 seconds 11.9-14.2 H 759) INR (BEAKER) (test code = 370) 1.22 <=5.90 PARTIAL THROMBOPLASTIN TIME 26.7 seconds 22.5-36.0 (BEAKER) (test code = 760) RECOMMENDED COUMADIN/WARFARIN INR THERAPY RANGESSTANDARD DOSE: 2.0 - 3.0 Includes: PROPHYLAXIS for venous thrombosis, systemic embolization; TREATMENT for venous thrombosis and/or pulmonary embolus.HIGH RISK: Target INR is 2.5-3.5 for patients with mechanical heart valves.RETICULOCYTE [id number] 04:03:20 Test Item Value Reference Range Interpretation Comments RETICULOCYTE COUNT PCT (BEAKER) (test 17.4 % 0.5-1.7 H code = 575) Security Patrol Officer ID - 6000POCT-GLUCOSE [id number] 23:16:07 Test Item Value Reference Range Interpretation Comments POC-GLUCOSE METER 219 mg/dL 70-110 H : TESTED A T [facility] 6720 (BEAKER) (test code = [place], 1538) [id number]: Security Patrol Officer/Techni waylon ID = [id number] for Kennedy Burrell BLOOD [id number] 21:00:22 Test Item Value Reference Range Interpretation Comments CULTURE (BEAKER) (test No growth in 5 days code = 1095) U/S, DUPLEX, [id number] 17:50:00Reason for exam:->main portal vein is mildly dilated on MRI. Would like to look at Hepatic Vein, Hepatic Artery and Portal Vein.[facility] 1975 Sex: FFINAL REPORT U/S, ABDOMINAL, LIMITED, U/S, DUPLEX, DOPPLER CLINICAL HISTORY: to check doppler flow to liver COMPARISON: None. TECHNIQUE: Real time grayscale and color Doppler images of the right upper abdominal organs were obtained using a curved transducer. Spectral Doppler images of the hepatic vasculature were also obtained. FINDINGS: Pancreas: Partially visualized and unremarkable. Liver: Normal in size and homogeneous in echogenicity. Focal liver lesions: None. Portal veins: Normal, hepatopetal flow. Main portal vein is 1.5 cm in diameter with peak velocity of 47 cm/s. Hepatic arteries and veins: Patent with correct direction of flow. Hepatic artery resistive indices are0.7 on the left, 0.8 on the right, and 0.8 in the proper hepatic artery. Normal acceleration time inthe proper hepatic artery. Bile ducts: Normal in caliber. Gallbladder: Surgically absent. Right kidney: No hydronephrosis. No solid renal mass. Spleen: Patent splenic artery and vein. Ascites: None in the upper abdomen. Visualized aorta and IVC: Unremarkable. MEASUREMENTS:Liver: 19 cm Common Duct: 4.6mm Right Kidney: 11.5 cm Aorta: 2.2 cm IMPRESSION: Patent hepatic vasculature. 1.5 cm diameter main portal vein suggestive of portal hypertension. Cholecystectomy. Signed: Renetta Novoaeport Verified Date/Time: 12/27/2022 17:50:06 U/S, ABDOMINAL, [id number] 17:50:00Abdomen limited area? Add comment if clarification is needed.->Right upper quadrantReason for exam:->to check doppler flow to liver [facility] : 1975 Sex: FFINAL REPORT U/S, ABDOMINAL, LIMITED, U/S, DUPLEX, DOPPLER CLINICAL HISTORY: to check doppler flow to liver COMPARISON: None. TECHNIQUE: Real time grayscale and color Doppler images of the right upper abdominal organs were obtained using a curved transducer. Spectral Doppler images of the hepatic vasculature were also obtained. FINDINGS: Pancreas: Partially visualized and unremarkable. Liver: Normal in size and homogeneous in echogenicity. Focal liver lesions: None. Portal veins: Normal, hepatopetal flow. Main portal vein is 1.5 cm in diameter with peak velocity of 47 cm/s. Hepatic arteries and veins: Patent with correct direction of flow. Hepatic artery resistive indices are0.7 on the left, 0.8 on the right, and 0.8 in the proper hepatic artery. Normal acceleration time inthe proper hepatic artery. Bile ducts: Normal in caliber. Gallbladder: Surgically absent. Right kidney: No hydronephrosis. No solid renal mass. Spleen: Patent splenic artery and vein. Ascites: None in the upper abdomen. Visualized aorta and IVC: Unremarkable. MEASUREMENTS:Liver: 19 cm Common Duct: 4.6mm Right Kidney: 11.5 cm Aorta: 2.2 cm IMPRESSION: Patent hepatic vasculature. 1.5 cm diameter main portal vein suggestive of portal hypertension. Cholecystectomy. Signed: Renetta Novoa Verified Date/Time: 12/27/2022 17:50:06 POCT-GLUCOSE [id number] 16:51:44 Test Item Value Reference Range Interpretation Comments POC-GLUCOSE METER 153 mg/dL 70-110 H : TESTED A T [facility] 6720 (BEAKER) (test [facility] = [facility], 1538) [address]: Security Patrol Officer/Techni waylon ID = [id number] for Anayeli Herr CBC (HEMOGRAM ONLY)2022-12-27 15:05:28 Test Item Value Reference Range Interpretation Comments WHITE BLOOD CELL COUNT (BEAKER) 23.5 K/ L 3.5-10.5 H (test code = 775) RED BLOOD CELL COUNT (BEAKER) 2.23 M/ L 3.93-5.22 L (test code = 761) HEMOGLOBIN (BEAKER) (test code = 7.1 GM/DL 11.2-15.7 L 410) HEMATOCRIT (BEAKER) (test code = 22.1 % 34.1-44.9 L 411) MEAN CORPUSCULAR VOLUME (BEAKER) 99 fL 79-95 H (test code = 753) MEAN CORPUSCULAR HEMOGLOBIN 31.8 pg 25.6-32.2 (BEAKER) (test code = 751) MEAN CORPUSCULAR HEMOGLOBIN CONC 32.1 GM/DL 32.2-35.5 L (BEAKER) (test code = 752) RED CELL DISTRIBUTION WIDTH 26.4 % 11.7-14.4 H (BEAKER) (test code = 412) PLATELET COUNT (BEAKER) (test 238 K/CU MM 150-450 code = 756) MEAN PLATELET VOLUME (BEAKER) 12.6 fL 9.4-12.3 H (test code = 754) NUCLEATED RED BLOOD CELLS 4 /100 WBC 0-0 H (BEAKER) (test code = 413) CALCIUM, [id number] 14:46:31 Test Item Value Reference Range Interpretation Comments CALCIUM IONIZED (BEAKER) (test 1.02 mmol/L 1.12-1.27 L code = 698) PH, BLOOD (BEAKER) (test code = 7.48 1810) POCT-GLUCOSE [id number] 13:01:01 Test Item Value Reference Range Interpretation Comments POC-GLUCOSE METER 237 mg/dL 70-110 H : [facility] (test code = [place] [facility], 1538) [address]: Security Patrol Officer/Techni waylon ID = [id number] for Anayeli Herr RAD, CHEST, 1 VIEW, NON [id number] 10:01:00Reason for exam:- >hypoxiaShould this be performed at the bedside?->Yes [facility] [place]ASTA : 1975 Sex: FFINAL REPORT RAD, CHEST, 1 VIEW, NON DEPT INDICATION: hypoxia COMPARISON: Prior day's exam FINDINGS: Portable frontal view of the chest. IMPRESSION: Support Lines: No significant change. Lungs and pleura: Right lung is aerated allowing for minimal basilar atelectasis with elevated right hemidiaphragm. Mild interstitial thickening at the left lung base without large effusion. No pneumothorax.Heart and mediastinum: Stable contours. Additional findings: None. Signed: Zachariah Lopez MDReport Verified Date/Time: 12/27/2022 10:01:44 [id number] 08:39:51 Test Item Value Reference Range Interpretation Comments LIPASE (RHEA) (test code = 749) 93 U/L 8-78 H Security Patrol Officer ID - MILADOSpecimen slightly ictericPOCT-GLUCOSE [id number] 08:35:08 Test Item Value Reference Range Interpretation Comments POC-GLUCOSE METER 183 mg/dL 70-110 H : TESTED A T [facility] 6720 (RHEA) (test code = [place], 1538) [address]: Security Patrol Officer/Techni waylon ID = [id number] for Anayeli Herr MR, ABDOMEN, [id number] 07:57:00Please add liver protocol. Please add MRCP. Unlisted Reason for Exam - Click Yes and Enter Reason Below->Yes Unlisted Reason for Exam->Elevated aminotransferases. [facility] : 1975 Sex: FFINAL REPORT TECHNIQUE: MRI of the abdomen WITHOUT and WITH intravenous contrast. INDICATION: Unlisted Reason for ExamElevated aminotransferases. COMPARISON: CT from 12/24/2022. FINDINGS: The postcontrast imaging is suboptimal due to motion artifact. LOWER THORAX: Unremarkable. LIVER: No hepatic signal abnormality. A cyst in segment V measures 0.3 cm. A cyst in segment VIII measur es 0.3 cm. BILIARY: Gallbladder is unremarkable. No biliary ductal dilatation or filling defect.SPLEEN: 14.4 cm splenomegaly. There is heterogeneous T2-weighted signal in the spleen.PANCREAS: There is expansion of the pancreas with increased interstitial T2-weighted signal and mild hypoenhancement, especially in the tail. ADRENALS: No adrenal nodules.KIDNEYS/URETERS: No hydronephrosis or solid mass lesions. A simple cyst in the left upper pole measures 0.8 cm. No follow-up imaging is recommended. PERITONEUM/RETROPERITONEUM: Trace ascites.LYMPH NODES: No lymphadenopathy.VESSELS: The main portal veinis patent and measures 1.5 cm in diameter. Likely small esophageal varices. GI TRACT: No distention or wall thickening. BONES AND SOFT TISSUES: Unremarkable. IMPRESSION: 1.The findings are most consistent with acute interstitial edematous pancreatitis. No pancreatic necrosis or peripancreatic fluid collection. 2.There is heterogeneous T2- weighted signal in the spleen from an indeterminate cause. Thiscould be reactive to the inflammation in the adjacent pancreas. 3.The main portal vein is mildly dilated, and there are small esophageal varices. This in combination with the mild splenomegaly is concerning for portal hypertension, although no definitive cirrhosis is seen. Signed: Colt Thomas MDReport Verified Date/Time: 12/27/2022 07:57:21 Reading Location: [facility] Diagnostic Imaging Reading Room - [place] [address] POCT-GLUCOSE [id number] 06:16:58 Test Item Value Reference Range Interpretation Comments POC-GLUCOSE METER 190 mg/dL 70-110 H : TESTED A T [facility] 6720 (BEAKER) (test code [facility], = 1538) [address]: Security Patrol Officer/Techni waylon ID = [id number] for Larry larry (contract)Sigrid (CELLAVISION MANUAL DIFF)2022-12-27 04:40:16 Test Item Value Reference Range Interpretation Comments NEUTROPHILS - REL 97 % (CELLAVISION)(BEAKER) (test code = 2816) LYMPHOCYTES - REL 1 % (CELLAVISION)(BEAKER) (test code = 2817) MONOCYTES - REL 2 % (CELLAVISION)(BEAKER) (test code = 2818) NEUTROPHILS - ABS 24.35 K/ul 1.56-6.13 H (CELLAVISION)(BEAKER) (test code = 2830) LYMPHOCYTES - ABS 0.25 K/ul 1.18-3.74 L (CELLAVISION)(BEAKER) (test code = 2831) MONOCYTES - ABS 0.50 K/uL 0.24-0.36 H (CELLAVISION)(BEAKER) (test code = 2832) TOTAL COUNTED (BEAKER) (test code 100 = 1351) MANUAL NRBC PER 100 CELLS 4 /100 WBC 0-0 H (BEAKER) (test code = 1353) WBC MORPHOLOGY (BEAKER) (test Normal code = 487) PLT MORPHOLOGY (BEAKER) (test Normal code = 486) POLYCHROMATOPHILLIC RBCS(BEAKER) 2+ moderate (test code = 478) ANISOCYTOSIS (BEAKER) (test code 2+ moderate = 961) SCHISTOCYTES (BEAKER) (test code 1+ few = 765) TEAR DROP CELLS (BEAKER) (test 1+ few code = 481) BASOPHILIC STIPPLING (BEAKER) Present (test code = 473) ARTIFACT (CELLAVISION)(BEAKER) Present (test code = 3432) PLATELET CONCENTRATION Adequate (CELLAVISION)(BEAKER) (test code = 3438) Security Patrol Officer ID - Ceci Polo comments: Slide comments:CBC W/PLT COUNT & AUTO [id number] 04:40:14 Test Item Value Reference Range Interpretation Comments WHITE BLOOD CELL COUNT (BEAKER) 25.1 K/ L 3.5-10.5 H (test code = 775) RED BLOOD CELL COUNT (BEAKER) 2.05 M/ L 3.93-5.22 L (test code = 761) HEMOGLOBIN (BEAKER) (test code = 6.5 GM/DL 11.2-15.7 L 410) HEMATOCRIT (BEAKER) (test code = 20.5 % 34.1-44.9 L 411) MEAN CORPUSCULAR VOLUME (BEAKER) 100 fL 79-95 H (test code = 753) MEAN CORPUSCULAR HEMOGLOBIN 31.7 pg 25.6-32.2 (BEAKER) (test code = 751) MEAN CORPUSCULAR HEMOGLOBIN CONC 31.7 GM/DL 32.2-35.5 L (BEAKER) (test code = 752) RED CELL DISTRIBUTION WIDTH 25.1 % 11.7-14.4 H (BEAKER) (test code = 412) PLATELET COUNT (BEAKER) (test 211 K/CU MM 150-450 code = 756) MEAN PLATELET VOLUME (BEAKER) 12.7 fL 9.4-12.3 H (test code = 754) NUCLEATED RED BLOOD CELLS 4 /100 WBC 0-0 H (BEAKER) (test code = 413) BASIC METABOLIC [id number] 04:28:10 Test Item Value Reference Range Interpretation Comments SODIUM (BEAKER) 133 meq/L 136-145 L (test code = 381) POTASSIUM 4.6 meq/L 3.5-5.1 (BEAKER) (test code = 379) CHLORIDE (BEAKER) 98 meq/L 98-107 (test code = 382) CO2 (BEAKER) 22 meq/L 22-29 (test code = 355) BLOOD UREA 65 mg/dL 7-21 H NITROGEN (BEAKER) (test code = 354) CREATININE 3.12 mg/dL 0.57-1.25 H (BEAKER) (test code = 358) GLUCOSE RANDOM 201 mg/dL 70-105 H (BEAKER) (test code = 652) CALCIUM (BEAKER) 7.6 mg/dL 8.4-10.2 L (test code = 697) EGFR (BEAKER) 18 Interpretatio n of eGFR (test code = [...] not appl icable for dialysis patien ts Security Patrol Officer ID - BSSpecimen slightly ictericLACTATE DEHYDROGENASE (LDH)2022-12-27 04:26:34 Test Item Value Reference Range Interpretation Comments LACTATE DEHYDROGENASE (BEAKER) (test 820 U/L 125-220 H code = 635) Security Patrol Officer ID - BSHEPATIC FUNCTION [id number] 04:26:33 Test Item Value Reference Range Interpretation Comments TOTAL PROTEIN (BEAKER) (test code = 5.1 gm/dL 6.0-8.3 L 770) ALBUMIN (BEAKER) (test code = 1145) 2.9 g/dL 3.5-5.0 L BILIRUBIN TOTAL (BEAKER) (test code 3.9 mg/dL 0.2-1.2 H = 377) BILIRUBIN DIRECT (BEAKER) (test 2.7 mg/dL 0.1-0.5 H code = 706) ALKALINE PHOSPHATASE (BEAKER) (test 215 U/L 40-150 H code = 346) AST (SGOT) (BEAKER) (test code = 48 U/L 5-34 H 353) ALT (SGPT) (BEAKER) (test code = 58 U/L 6-55 H 347) Security Patrol Officer ID - BSSpecimen slightly [id number] 04:26:32 Test Item Value Reference Range Interpretation Comments PHOSPHORUS (BEAKER) (test code = 6.0 mg/dL 2.3-4.7 H 604) Security Patrol Officer ID - [id number] 04:26:31 Test Item Value Reference Range Interpretation Comments MAGNESIUM (BEAKER) (test code = 3.5 mg/dL 1.6-2.6 H 627) Security Patrol Officer ID - [id number] 04:25:09 Test Item Value Reference Range Interpretation Comments HAPTOGLOBIN (BEAKER) (test code = 86 mg/dL 14-258 366) Security Patrol Officer ID - [id number] 03:57:01 Test Item Value Reference Range Interpretation Comments FIBRINOGEN LEVEL (BEAKER) (test 180 mg/dl 225-434 L code = 658) [id number] 03:56:59 Test Item Value Reference Range Interpretation Comments PROTIME (BEAKER) (test code = 14.5 seconds 11.9-14.2 H 759) INR (BEAKER) (test code = 370) 1.20 <=5.90 PARTIAL THROMBOPLASTIN TIME 26.4 seconds 22.5-36.0 (BEAKER) (test code = 760) RECOMMENDED COUMADIN/WARFARIN INR THERAPY RANGESSTANDARD DOSE: 2.0 - 3.0 Includes: PROPHYLAXIS for venous thrombosis, systemic embolization; TREATMENT for venous thrombosis and/or pulmonary embolus.HIGH RISK: Target INR is 2.5-3.5 for patients with mechanical heart valves.RETICULOCYTE [id number] 03:56:41 Test Item Value Reference Range Interpretation Comments RETICULOCYTE COUNT PCT (SANDRAAKER) (test 15.0 % 0.5-1.7 H code = 575) Security Patrol Officer ID - 6000POCT-GLUCOSE [id number] 00:17:23 Test Item Value Reference Range Interpretation Comments POC-GLUCOSE METER 218 mg/dL 70-110 H : TESTED A T [facility] 6720 (RHEA) ([facility], = 1538) [address]: Security Patrol Officer/Techni waylon ID = [id number] for SUGU , MELANIENAMOL Clostridium difficile GDH [id number] 22:10:38 Test Item Value Reference Range Interpretation Comments C. Difficle Toxin Negative Negative (test code = 9563879973) C. Difficile GDH Negative Negative No indicati on of Antigen (test code = Clostri dium 0169122339) difficile infection and n o colonization. Discontinue enteric isolati on and therapy. AREN (test code = Testing performed AREN) by [employer] Rapid Cassette Assay. For GDH, published sensitivity of the assay is 98.7% compared to cytotoxicity testing. For Toxin AB, published sensitivity is 87.8% and specificity 99.4% compared to cytotoxicity testing.Verificati on of kit performance was done by the [facility] Microbiology Lab prior to clinical use. Lab Interpretation Normal (test code = 32277-5) [facility] [id number] 22:10:38 Test Item Value Reference Range Interpretation Comments CDT TOXIN (test code Negative Negative = 3969431990) CDT GDH ANTIGEN (test Negative Negative No ind ication of code = 7178449543) Clostridi um difficile infection and n o colonization. Discontinue ent renetta isolation and t herapy. Testing performed by [employer] Rapid Cassette Assay. For GDH, published sensitivity of the assay is 98.7% compared to cytotoxicity testing. For Toxin AB, published sensitivity is 87.8% and specificity 99.4% compared to cytotoxicity testing.Verification of kit performance was done by the [facility] MicrobiologyLab prior to clinical use.POCT-GLUCOSE [id number] 20:58:53 Test Item Value Reference Range Interpretation Comments POC-GLUCOSE METER 198 mg/dL 70-110 H : TESTED Bryan T [facility] 6720 (BEAKER) (test code [facility], = 1538) [address]: Security Patrol Officer/Techni waylon ID = [id number] for Larry juarez (contract), Sigrid xis GI Pathogen Profile by PCR -ID [id number] 20:21:37 Test Item Value Reference Range Interpretation Comments CAMPYLOBACTER PCR (test Not detected Not detected code = 57622-4) PLESIOMONAS SHIGELLOIDES Not detected Not detected (PCR) (test code = 50241-3) SALMONELLA (PCR) (test Not detected Not detected code = 11545-7) YERSINIA ENTEROCOLITICA Not detected Not detected (PCR) (test code = 15825-7) VIBRIO CHOLERAE (PCR) Not detected Not detected (test code = 13529-0) ENTEROAGGREGATIVE E. Not detected Not detected COLI (EAEC) BY PCR (test code = 50599-1) ENTEROPATHOGENIC E. COLI Not detected Not detected (EPEC) BY PCR (test code = 32526-1) ENTEROTOXIGENIC E. COLI Not detected Not detected (ETEC) LT/ST BY PCR (test code = 80496-9) SHIGA-LIKE Not detected Not detected TOXIN-PRODUCING E. COLI (STEC) STX1/STX2 (test code = 67139-5) E. COLI O157 (PCR) (test code = 27023-0) SHIGELLA/ENTEROINVASIVE Not detected Not detected E. COLI (EIEC) BY PCR (test code = 29544-0) CRYPTOSPORIDIUM (PCR) Not detected Not detected (test code = 30533-9) CYCLOSPORA CAYETANENSIS Not detected Not detected (PCR) (test code = 01231-1) ENTAMOEBA HISTOLYTICA Not detected Not detected (PCR) (test code = 84554-9) GIARDIA LAMBLIA (PCR) Not detected Not detected (test code = 48929-1) ADENOVIRUS F 40/41 (PCR) Not detected Not detected (test code = 69748-5) ASTROVIRUS (PCR) (test Not detected Not detected code = 92296-3) NOROVIRUS GI/GII (PCR) Not detected Not detected (test code = 35196-9) ROTAVIRUS A (PCR) (test Not detected Not detected code = 34293-5) SAPOVIRUS (I, II, IV, V) Not detected Not detected BY PCR (test code = 77298-9) VIBRIO Not detected Not detected (PARAHAEMOLYTICUS, VULNIFICUS) (test code = 20749-6) AREN (test code = AREN) Other viruses, parasites and bacteria not targeted by this PCR panel cannot be excluded; therefore clinical correlation and follow up of serology, culture results, and other molecular studies is required. The results are not intended to be used as the sole means for clinical diagnosis or patient management decisions. This sample was tested at the [facility] Molecular Diagnostics Laboratory using the [employer] Gastrointestinal Panel. It is FDA cleared and has been verified and approved by the [facility] Molecular Diagnostics Laboratory for clinical use. This laboratory is CLIA-certified and [employer] (CAP)-accredited to perform high complexity testing. [facility] BY [id number] 20:21:37 Test Item Value Reference Range Interpretation Comments CAMPYLOBACTER (PCR) (test code = Not detected Not detected 20160330) PLESIOMONAS SHIGELLOIDES (PCR) Not detected Not detected (test code = 20160403) SALMONELLA (PCR) (test code = Not detected Not detected ) YERSINIA ENTEROCOLITICA (PCR) Not detected Not detected (test code = 1664606) VIBRIO CHOLERAE (PCR) (test code Not detected Not detected = 1531760) ENTEROAGGREGATIVE E. COLI (EAEC) Not detected Not detected BY PCR (test code = 4747522) ENTEROPATHOGENIC E. COLI (EPEC) Not detected Not detected BY PCR (test code = 9766746) ENTEROTOXIGENIC E. COLI (ETEC) Not detected Not detected LT/ST BY PCR (test code = 3518464) SHIGA-LIKE TOXIN-PRODUCING E. Not detected Not detected COLI (STEC) PCR (test code = 2817773) E. COLI O157 (PCR) (test code = 3972467) SHIGELLA/ENTEROINVASIVE E. COLI Not detected Not detected (EIEC) BY PCR (test code = 1275408) CRYPTOSPORIDIUM (PCR) (test code Not detected Not detected = 20160504) CYCLOSPORA CAYETANENSIS (PCR) Not detected Not detected (test code = ) ENTAMOEBA HISTOLYTICA (PCR) Not detected Not detected (test code = 20160527) GIARDIA LAMBLIA (PCR) (test code Not detected Not detected = 20160528) ADENOVIRUS F 40/41 (PCR) (test Not detected Not detected code = 20160529) ASTROVIRUS (PCR) (test code = Not detected Not detected 20160530) NOROVIRUS GI/GII (PCR) (test Not detected Not detected code = 6500532) ROTAVIRUS A (PCR) (test code = Not detected Not detected 20160601) SAPOVIRUS (I, II, IV, V) BY PCR Not detected Not detected (test code = 20160602) VIBRIO (PARAHAEMOLYTICUS, Not detected Not detected VULNIFICUS) (test code = ) Other viruses, parasites and bacteria not targeted by this PCR panel cannot be excluded; therefore clinical correlation and follow up of serology, culture results, and other molecular studies is required. The results are not intended to be used as the sole means for clinical diagnosis or patient management decisions. This sample was tested at the [facility] Molecular Diagnostics Laboratory using the [employer] Gastrointestinal Panel. It is FDA cleared and has been verified and approved by the [facility] Molecular Diagnostics Laboratory for clinical use. This laboratory is CLIA-certified and College ofAmerican Pathologists (CAP)-accredited to perform high complexity testing.CBC (HEMOGRAM ONLY)2022-12-26 20:12:59 Test Item Value Reference Range Interpretation Comments WHITE BLOOD CELL COUNT (BEAKER) 19.4 K/ L 3.5-10.5 H (test code = 775) RED BLOOD CELL COUNT (BEAKER) 1.99 M/ L 3.93-5.22 L (test code = 761) HEMOGLOBIN (BEAKER) (test code = 6.4 GM/DL 11.2-15.7 L 410) HEMATOCRIT (BEAKER) (test code = 19.9 % 34.1-44.9 L 411) MEAN CORPUSCULAR VOLUME (BEAKER) 100 fL 79-95 H (test code = 753) MEAN CORPUSCULAR HEMOGLOBIN 32.2 pg 25.6-32.2 (BEAKER) (test code = 751) MEAN CORPUSCULAR HEMOGLOBIN CONC 32.2 GM/DL 32.2-35.5 (BEAKER) (test code = 752) RED CELL DISTRIBUTION WIDTH 24.6 % 11.7-14.4 H (BEAKER) (test code = 412) PLATELET COUNT (BEAKER) (test 167 K/CU MM 150-450 code = 756) MEAN PLATELET VOLUME (BEAKER) 12.7 fL 9.4-12.3 H (test code = 754) NUCLEATED RED BLOOD CELLS 4 /100 WBC 0-0 H (BEAKER) (test code = 413) POCT-GLUCOSE [id number] 14:00:55 Test Item Value Reference Range Interpretation Comments POC-GLUCOSE METER 278 mg/dL 70-110 H : TESTED A T [facility] 6720 (BEAKER) (test code = [place], 1538) [address]84: Security Patrol Officer/Techni waylon ID = [id number] for Anayeli Herr CBC (HEMOGRAM ONLY)2022-12-26 10:46:59 Test Item Value Reference Range Interpretation Comments WHITE BLOOD CELL COUNT (BEAKER) 26.6 K/ L 3.5-10.5 H (test code = 775) RED BLOOD CELL COUNT (BEAKER) 1.58 M/ L 3.93-5.22 L (test code = 761) HEMOGLOBIN (BEAKER) (test code = 5.2 GM/DL 11.2-15.7 LL 410) HEMATOCRIT (BEAKER) (test code = 16.5 % 34.1-44.9 L 411) MEAN CORPUSCULAR VOLUME (BEAKER) 104 fL 79-95 H (test code = 753) MEAN CORPUSCULAR HEMOGLOBIN 32.9 pg 25.6-32.2 H (BEAKER) (test code = 751) MEAN CORPUSCULAR HEMOGLOBIN CONC 31.5 GM/DL 32.2-35.5 L (BEAKER) (test code = 752) RED CELL DISTRIBUTION WIDTH 28.7 % 11.7-14.4 H (BEAKER) (test code = 412) PLATELET COUNT (BEAKER) (test 203 K/CU MM 150-450 code = 756) MEAN PLATELET VOLUME (BEAKER) 12.9 fL 9.4-12.3 H (test code = 754) NUCLEATED RED BLOOD CELLS 5 /100 WBC 0-0 H (BEAKER) (test code = 413) POCT-GLUCOSE [id number] 10:18:57 Test Item Value Reference Range Interpretation Comments POC-GLUCOSE METER 289 mg/dL 70-110 H : TESTED A T [facility] 6720 (RHEA) (test code = MARTHACO Brock [facility], 1538) [address]: Security Patrol Officer/Techni waylon ID = [id number] for Wi Anayeli hunt RAD, CHEST, 1 VIEW, NON [id number] 07:22:00Reason for exam:->intubated patientShould this be performed at the bedside?->Yes [facility] : 1975 Sex: FFINAL REPORT INDICATION: intubated patient COMPARISON: None TECHNIQUE: Single frontal view of the chest. FINDINGS: Lungs and pleura: Clear lungs. No effusion.Heart and mediastinum: Normal heart size. Unremarkable mediastinal contours.Osseous structures: No acute abnormality.Other: None. IMPRESSION: No acute intrathoracic abnormality. Signed: Krystyna Altamirano Verified Date /Time: 12/26/2022 07:22:08 POCT-GLUCOSE [id number] 06:45:44 Test Item Value Reference Range Interpretation Comments POC-GLUCOSE METER 244 mg/dL 70-110 H : TESTED A T [facility] 6720 (RHEA) (test code = MARTHACO Brock [facility], 1538) 09140: Security Patrol Officer/Techni waylon ID = [id number] for Mu queenie, Shelbi CBC W/PLT COUNT & AUTO [id number] 03:26:12 Test Item Value Reference Range Interpretation Comments WHITE BLOOD CELL COUNT (BEAKER) 28.8 K/ L 3.5-10.5 H (test code = 775) RED BLOOD CELL COUNT (BEAKER) 1.57 M/ L 3.93-5.22 L (test code = 761) HEMOGLOBIN (BEAKER) (test code = 4.9 GM/DL 11.2-15.7 LL 410) HEMATOCRIT (BEAKER) (test code = 16.2 % 34.1-44.9 L 411) MEAN CORPUSCULAR VOLUME (BEAKER) 103 fL 79-95 H (test code = 753) MEAN CORPUSCULAR HEMOGLOBIN 31.2 pg 25.6-32.2 (BEAKER) (test code = 751) MEAN CORPUSCULAR HEMOGLOBIN CONC 30.2 GM/DL 32.2-35.5 L (BEAKER) (test code = 752) RED CELL DISTRIBUTION WIDTH 27.7 % 11.7-14.4 H (BEAKER) (test code = 412) PLATELET COUNT (BEAKER) (test 199 K/CU MM 150-450 code = 756) MEAN PLATELET VOLUME (BEAKER) 13.1 fL 9.4-12.3 H (test code = 754) NUCLEATED RED BLOOD CELLS 4 /100 WBC 0-0 H (BEAKER) (test code = 413) (CELLAVISION MANUAL DIFF)2022-12-26 03:16:42 Test Item Value Reference Range Interpretation Comments NEUTROPHILS - REL 93 % (CELLAVISION)(BEAKER) (test code = 2816) LYMPHOCYTES - REL 5 % (CELLAVISION)(BEAKER) (test code = 2817) MONOCYTES - REL 2 % (CELLAVISION)(BEAKER) (test code = 2818) NEUTROPHILS - ABS 26.69 K/ul 1.56-6.13 H (CELLAVISION)(BEAKER) (test code = 2830) LYMPHOCYTES - ABS 1.44 K/ul 1.18-3.74 (CELLAVISION)(BEAKER) (test code = 2831) MONOCYTES - ABS 0.57 K/uL 0.24-0.36 H (CELLAVISION)(BEAKER) (test code = 2832) TOTAL COUNTED (BEAKER) (test code 100 = 1351) MANUAL NRBC PER 100 CELLS 2 /100 WBC 0-0 H (BEAKER) (test code = 1353) WBC MORPHOLOGY (BEAKER) (test Normal code = 487) PLT MORPHOLOGY (BEAKER) (test Normal code = 486) POLYCHROMATOPHILLIC RBCS(BEAKER) 2+ moderate (test code = 478) ANISOCYTOSIS (BEAKER) (test code 2+ moderate = 961) SCHISTOCYTES (BEAKER) (test code 1+ few = 765) OVALOCYTES (BEAKER) (test code = 1+ few 477) TEAR DROP CELLS (BEAKER) (test 1+ few code = 481) BASOPHILIC STIPPLING (BEAKER) Present (test code = 473) ARTIFACT (CELLAVISION)(BEAKER) Present (test code = 3432) PLATELET CONCENTRATION Adequate (CELLAVISION)(BEAKER) (test code = 3438) Security Patrol Officer ID - [id number] ID - Ceci Polo comments: Slide comments:CBC W/PLT COUNT & AUTO [id number] 03:16:40 Test Item Value Reference Range Interpretation Comments WHITE BLOOD CELL COUNT (BEAKER) 28.7 K/ L 3.5-10.5 H (test code = 775) RED BLOOD CELL COUNT (BEAKER) 1.54 M/ L 3.93-5.22 L (test code = 761) HEMOGLOBIN (BEAKER) (test code = 4.9 GM/DL 11.2-15.7 LL 410) HEMATOCRIT (BEAKER) (test code = 15.9 % 34.1-44.9 L 411) MEAN CORPUSCULAR VOLUME (BEAKER) 103 fL 79-95 H (test code = 753) MEAN CORPUSCULAR HEMOGLOBIN 31.8 pg 25.6-32.2 (BEAKER) (test code = 751) MEAN CORPUSCULAR HEMOGLOBIN CONC 30.8 GM/DL 32.2-35.5 L (BEAKER) (test code = 752) RED CELL DISTRIBUTION WIDTH 27.7 % 11.7-14.4 H (BEAKER) (test code = 412) PLATELET COUNT (BEAKER) (test 183 K/CU MM 150-450 code = 756) MEAN PLATELET VOLUME (BEAKER) 13.2 fL 9.4-12.3 H (test code = 754) NUCLEATED RED BLOOD CELLS 5 /100 WBC 0-0 H (BEAKER) (test code = 413) BLOOD GAS, [id number] 03:01:58 Test Item Value Reference Range Interpretation Comments PH ARTERIAL (BEAKER) (test code = 7.46 7.35-7.45 H 383) PCO2 ARTERIAL (BEAKER) (test code 34 mm Hg 35-45 L = 384) PO2 ARTERIAL (BEAKER) (test code 77 mm Hg 80-90 L = 385) O2 SATURATION ARTERIAL (BEAKER) 96.0 % 96.0-97.0 (test code = 386) HCO3 ARTERIAL (BEAKER) (test code 24 mmol/L 21-29 = 388) BASE EXCESS ARTERIAL (BEAKER) -0.4 mmol/L -2.0-3.0 (test code = 387) PATIENT TEMPERATURE (BEAKER) 37.0 (test code = 1818) FIO2 (BEAKER) (test code = 1819) 28.0 [id number] 02:58:00 Test Item Value Reference Range Interpretation Comments HAPTOGLOBIN (BEAKER) (test code = 50 mg/dL 14-258 366) Security Patrol Officer ID - BSBASIC METABOLIC [id number] 02:55:35 Test Item Value Reference Range Interpretation Comments SODIUM (BEAKER) 133 meq/L 136-145 L (test code = 381) POTASSIUM 5.0 meq/L 3.5-5.1 (BEAKER) (test code = 379) CHLORIDE (BEAKER) 98 meq/L 98-107 (test code = 382) CO2 (BEAKER) 21 meq/L 22-29 L (test code = 355) BLOOD UREA 74 mg/dL 7-21 H NITROGEN (BEAKER) (test code = 354) CREATININE 3.27 mg/dL 0.57-1.25 H (BEAKER) (test code = 358) GLUCOSE RANDOM 287 mg/dL 70-105 H (BEAKER) (test code = 652) CALCIUM (BEAKER) 7.5 mg/dL 8.4-10.2 L (test code = 697) EGFR (BEAKER) 17 Interpretatio n of eGFR (test code = [...] not appl icable for dialysis patien ts Security Patrol Officer ID - BSSpecimen moderately [id number] 02:54:58 Test Item Value Reference Range Interpretation Comments FIBRINOGEN LEVEL (BEAKER) (test 166 mg/dl 225-434 L code = 658) [id number] 02:54:41 Test Item Value Reference Range Interpretation Comments PROTIME (BEAKER) (test code = 16.0 seconds 11.9-14.2 H 759) INR (BEAKER) (test code = 370) 1.36 <=5.90 PARTIAL THROMBOPLASTIN TIME 26.0 seconds 22.5-36.0 (BEAKER) (test code = 760) RECOMMENDED COUMADIN/WARFARIN INR THERAPY RANGESSTANDARD DOSE: 2.0 - 3.0 Includes: PROPHYLAXIS for venous thrombosis, systemic embolization; TREATMENT for venous thrombosis and/or pulmonary embolus.HIGH RISK: Target INR is 2.5-3.5 for patients with mechanical heart valves.LACTATE DEHYDROGENASE (LDH)2022-12-26 02:54:40 Test Item Value Reference Range Interpretation Comments LACTATE DEHYDROGENASE (BEAKER) (test 950 U/L 125-220 H code = 635) Security Patrol Officer ID - BSHEPATIC FUNCTION [id number] 02:54:39 Test Item Value Reference Range Interpretation Comments TOTAL PROTEIN (BEAKER) (test code = 5.4 gm/dL 6.0-8.3 L 770) ALBUMIN (BEAKER) (test code = 1145) 3.2 g/dL 3.5-5.0 L BILIRUBIN TOTAL (BEAKER) (test code 4.7 mg/dL 0.2-1.2 H = 377) BILIRUBIN DIRECT (BEAKER) (test 3.3 mg/dL 0.1-0.5 H code = 706) ALKALINE PHOSPHATASE (BEAKER) (test 238 U/L 40-150 H code = 346) AST (SGOT) (BEAKER) (test code = 61 U/L 5-34 H 353) ALT (SGPT) (BEAKER) (test code = 82 U/L 6-55 H 347) Security Patrol Officer ID - BSSpecimen moderately [id number] 02:54:38 Test Item Value Reference Range Interpretation Comments PHOSPHORUS (BEAKER) (test code = 5.5 mg/dL 2.3-4.7 H 604) Security Patrol Officer ID - [id number] 02:54:37 Test Item Value Reference Range Interpretation Comments MAGNESIUM (BEAKER) (test code = 3.7 mg/dL 1.6-2.6 H 627) Security Patrol Officer ID - BSRETICULOCYTE [id number] 02:44:31 Test Item Value Reference Range Interpretation Comments RETICULOCYTE COUNT PCT (BEAKER) (test 17.0 % 0.5-1.7 H code = 575) Security Patrol Officer ID - [id number] ID - 6000POCT-GLUCOSE [id number] 01:12:26 Test Item Value Reference Range Interpretation Comments POC-GLUCOSE METER 285 mg/dL 70-110 H : TESTED A T [facility] 6720 (BEAKER) (test code = [facility], 1538) [address]: Security Patrol Officer/Techni waylon ID = [id number] for Mu queenie, Shelbi POCT-GLUCOSE [id number] 22:50:33 Test Item Value Reference Range Interpretation Comments POC-GLUCOSE METER 256 mg/dL 70-110 H : TESTED A T [facility] 6720 (BEAKER) (test code = [facility], 1538) 71968: Security Patrol Officer/Techni waylon ID = [id number] for Mu queenie, Shelbi Lactic Acid, [id number] 19:11:36 Test Item Value Reference Range Interpretation Comments Lactate, Art (test code = 1.9 mmol/L 0.5-2.2 2874) AREN (test code = AREN) Security Patrol Officer ID - MMSpecimen moderately icteric Lab Interpretation (test Normal code = 44837-7) [facility], [id number] 19:11:36 Test Item Value Reference Range Interpretation Comments LACTATE BLOOD ARTERIAL (2) 1.9 mmol/L 0.5-2.2 (BEAKER) (test code = 2874) Security Patrol Officer ID - MMSpecimen moderately ictericCBC (HEMOGRAM ONLY)2022-12-25 19:07:28 Test Item Value Reference Range Interpretation Comments WHITE BLOOD CELL COUNT 37.3 K/ L 3.5-10.5 H (BEAKER) (test code = 775) RED BLOOD CELL COUNT 1.87 M/ L 3.93-5.22 L (BEAKER) (test code = 761) HEMOGLOBIN (BEAKER) 6.0 GM/DL 11.2-15.7 LL (test code = 410) HEMATOCRIT (BEAKER) 19.0 % 34.1-44.9 L (test code = 411) MEAN CORPUSCULAR 102 fL 79-95 H Discordant MCV VOLUME (BEAKER) (test result compared to code = 753) previous result ; clinical correl ation required. MEAN CORPUSCULAR 32.1 pg 25.6-32.2 HEMOGLOBIN (BEAKER) (test code = 751) MEAN CORPUSCULAR 31.6 GM/DL 32.2-35.5 L HEMOGLOBIN CONC (BEAKER) (test code = 752) RED CELL DISTRIBUTION 27.1 % 11.7-14.4 H WIDTH (BEAKER) (test code = 412) PLATELET COUNT 239 K/CU MM 150-450 (BEAKER) (test code = 756) MEAN PLATELET VOLUME 12.7 fL 9.4-12.3 H (BEAKER) (test code = 754) NUCLEATED RED BLOOD 7 /100 WBC 0-0 H CELLS (BEAKER) (test code = 413) POCT-GLUCOSE [id number] 16:59:48 Test Item Value Reference Range Interpretation Comments POC-GLUCOSE METER 233 mg/dL 70-110 H : TESTED A T [facility] 6720 (BEAKER) (test code = [place], 1538) [address]228: Security Patrol Officer/Techni waylon ID = [id number] for Carlyn Gonsalves CBC (HEMOGRAM ONLY)2022-12-25 12:49:26 Test Item Value Reference Range Interpretation Comments WHITE BLOOD CELL COUNT (BEAKER) 35.9 K/ L 3.5-10.5 H (test code = 775) RED BLOOD CELL COUNT (BEAKER) 1.92 M/ L 3.93-5.22 L (test code = 761) HEMOGLOBIN (BEAKER) (test code = 6.1 GM/DL 11.2-15.7 L 410) HEMATOCRIT (BEAKER) (test code = 18.9 % 34.1-44.9 L 411) MEAN CORPUSCULAR VOLUME (BEAKER) 98 fL 79-95 H (test code = 753) MEAN CORPUSCULAR HEMOGLOBIN 31.8 pg 25.6-32.2 (BEAKER) (test code = 751) MEAN CORPUSCULAR HEMOGLOBIN CONC 32.3 GM/DL 32.2-35.5 (BEAKER) (test code = 752) RED CELL DISTRIBUTION WIDTH 26.6 % 11.7-14.4 H (BEAKER) (test code = 412) PLATELET COUNT (BEAKER) (test 233 K/CU MM 150-450 code = 756) MEAN PLATELET VOLUME (BEAKER) 12.7 fL 9.4-12.3 H (test code = 754) NUCLEATED RED BLOOD CELLS 5 /100 WBC 0-0 H (BEAKER) (test code = 413) POCT-GLUCOSE [id number] 10:23:25 Test Item Value Reference Range Interpretation Comments POC-GLUCOSE METER 185 mg/dL 70-110 H : TESTED A T [facility] 6720 (BEAKER) (test code = [place], 1538) [id number]: Security Patrol Officer/Techni waylon ID = [id number] for MinCarlyn todd Arterial doppler legs [id number] 08:31:45Ejection FractionSLEH ECHO HEARTLAB [facility]CK[facility] DEPT 2022-12-25 07:18:00Reason for exam:->intubated patientShould this be performed at the bedside?->Yes [facility] : 1975 Sex: FFINAL REPORT RAD, CHEST, 1 VIEW, NON DEPT INDICATION: intubated patient COMPARISON: Prior day's exam FINDINGS: Portable frontal view of the chest. IMPRESSION: Support Lines: Overlying leads/monitors. Lungs and pleura: Retrocardiac opacity representing singly or in combination airspace disease, atelectasis and/or effusion. No significant pneumothorax. Heart and mediastinum: Stable contours. Stable surgical changes. Additional findings: None. Signed: Krystyna Altamiranoeport Verified Date/Time: 12/25/2022 07:18:16 BASIC METABOLIC [id number] 06:19:05 Test Item Value Reference Range Interpretation Comments SODIUM (BEAKER) 134 meq/L 136-145 L (test code = 381) POTASSIUM 5.7 meq/L 3.5-5.1 H (BEAKER) (test code = 379) CHLORIDE (BEAKER) 103 meq/L 98-107 (test code = 382) CO2 (BEAKER) 16 meq/L 22-29 L (test code = 355) BLOOD UREA 101 mg/dL 7-21 H NITROGEN (BEAKER) (test code = 354) CREATININE 3.88 mg/dL 0.57-1.25 H (BEAKER) (test code = 358) GLUCOSE RANDOM 238 mg/dL 70-105 H (BEAKER) (test code = 652) CALCIUM (BEAKER) 7.7 mg/dL 8.4-10.2 L (test code = 697) EGFR (BEAKER) 14 Interpretatio n of eGFR (test code = [...] not appl icable for dialysis patien ts Security Patrol Officer ID - BSSpecimen moderately [id number] 06:17:20 Test Item Value Reference Range Interpretation Comments MAGNESIUM (BEAKER) (test code = 2.9 mg/dL 1.6-2.6 H 627) Security Patrol Officer ID - [id number] 06:17:19 Test Item Value Reference Range Interpretation Comments PHOSPHORUS (BEAKER) (test code = 4.5 mg/dL 2.3-4.7 604) Security Patrol Officer ID - BSPOCT-GLUCOSE [id number] 05:34:33 Test Item Value Reference Range Interpretation Comments POC-GLUCOSE METER 224 mg/dL 70-110 H : TESTED A T [facility] (BEAKER) (test code = [place], 1538) [address]: Security Patrol Officer/Techni waylon ID = [id number] for Ra bhavesh Jacobo [id number] 03:57:27 Test Item Value Reference Range Interpretation Comments FIBRINOGEN LEVEL (BEAKER) (test 197 mg/dl 225-434 L code = 658) (CELLAVISION MANUAL DIFF)2022-12-25 03:53:00 Test Item Value Reference Range Interpretation Comments NEUTROPHILS - REL 94 % (CELLAVISION)(BEAKER) (test code = 2816) LYMPHOCYTES - REL 4 % (CELLAVISION)(BEAKER) (test code = 2817) MONOCYTES - REL 1 % (CELLAVISION)(BEAKER) (test code = 2818) BANDS - REL (CELLAVISION)(BEAKER) 1 % 0-10 (test code = 2826) NEUTROPHILS - ABS 33.18 K/ul 1.56-6.13 H (CELLAVISION)(BEAKER) (test code = 2830) LYMPHOCYTES - ABS 1.41 K/ul 1.18-3.74 (CELLAVISION)(BEAKER) (test code = 2831) MONOCYTES - ABS 0.35 K/uL 0.24-0.36 (CELLAVISION)(BEAKER) (test code = 2832) BANDS - ABS (CELLAVISION)(BEAKER) 0.35 K/uL 0.00-0.80 (test code = 2840) TOTAL COUNTED (BEAKER) (test code 100 = 1351) MANUAL NRBC PER 100 CELLS 5 /100 WBC 0-0 H (BEAKER) (test code = 1353) WBC MORPHOLOGY (BEAKER) (test Normal code = 487) PLT MORPHOLOGY (BEAKER) (test Normal code = 486) POLYCHROMATOPHILLIC RBCS(BEAKER) 1+ few (test code = 478) ANISOCYTOSIS (BEAKER) (test code 2+ moderate = 961) SCHISTOCYTES (BEAKER) (test code 1+ few = 765) OVALOCYTES (BEAKER) (test code = 1+ few 477) TEAR DROP CELLS (BEAKER) (test 1+ few code = 481) ARTIFACT (CELLAVISION)(BEAKER) Present (test code = 3432) PLATELET CONCENTRATION Adequate (CELLAVISION)(BEAKER) (test code = 3438) Security Patrol Officer ID - Ceci Polo comments: Slide comments:CBC W/PLT COUNT & AUTO [id number] 03:52:59 Test Item Value Reference Range Interpretation Comments WHITE BLOOD CELL COUNT 35.3 K/ L 3.5-10.5 H (BEAKER) (test code = 775) RED BLOOD CELL COUNT 1.97 M/ L 3.93-5.22 L (BEAKER) (test code = 761) HEMOGLOBIN (BEAKER) 6.2 GM/DL 11.2-15.7 L (test code = 410) HEMATOCRIT (BEAKER) 19.9 % 34.1-44.9 L (test code = 411) MEAN CORPUSCULAR 101 fL 79-95 H Discordant results VOLUME (BEAKER) (test compar ed to previous code = 753) results; clinic al correlation req uired MEAN CORPUSCULAR 31.5 pg 25.6-32.2 HEMOGLOBIN (BEAKER) (test code = 751) MEAN CORPUSCULAR 31.2 GM/DL 32.2-35.5 L HEMOGLOBIN CONC (BEAKER) (test code = 752) RED CELL DISTRIBUTION 26.0 % 11.7-14.4 H WIDTH (BEAKER) (test code = 412) PLATELET COUNT 207 K/CU MM 150-450 (BEAKER) (test code = 756) MEAN PLATELET VOLUME 12.8 fL 9.4-12.3 H (BEAKER) (test code = 754) NUCLEATED RED BLOOD 5 /100 WBC 0-0 H CELLS (BEAKER) (test code = 413) LACTATE DEHYDROGENASE (LDH)2022-12-25 03:44:14 Test Item Value Reference Range Interpretation Comments LACTATE DEHYDROGENASE (BEAKER) (test 1233 U/L 125-220 H code = 635) Security Patrol Officer ID - BSHEPATIC FUNCTION [id number] 03:44:13 Test Item Value Reference Range Interpretation Comments TOTAL PROTEIN (BEAKER) (test code = 5.8 gm/dL 6.0-8.3 L 770) ALBUMIN (BEAKER) (test code = 1145) 2.8 g/dL 3.5-5.0 L BILIRUBIN TOTAL (BEAKER) (test code 5.6 mg/dL 0.2-1.2 H = 377) BILIRUBIN DIRECT (BEAKER) (test 3.9 mg/dL 0.1-0.5 H code = 706) ALKALINE PHOSPHATASE (BEAKER) (test 330 U/L 40-150 H code = 346) AST (SGOT) (BEAKER) (test code = 80 U/L 5-34 H 353) ALT (SGPT) (BEAKER) (test code = 146 U/L 6-55 H 347) Security Patrol Officer ID - BSSpecimen moderately [id number] 03:41:12 Test Item Value Reference Range Interpretation Comments HAPTOGLOBIN (BEAKER) (test code = 32 mg/dL 14-258 366) Security Patrol Officer ID - BSVANCOMYCIN LEVEL, [id number] 03:34:13 Test Item Value Reference Range Interpretation Comments VANCOMYCIN RANDOM (BEAKER) (test 52.2 ug/mL code = 523) Reference Range: No NormalsOperator ID - [id number] 03:29:35 Test Item Value Reference Range Interpretation Comments PROTIME (BEAKER) (test code = 15.6 seconds 11.9-14.2 H 759) INR (BEAKER) (test code = 370) 1.32 <=5.90 PARTIAL THROMBOPLASTIN TIME 23.1 seconds 22.5-36.0 (BEAKER) (test code = 760) RECOMMENDED COUMADIN/WARFARIN INR THERAPY RANGESSTANDARD DOSE: 2.0 - 3.0 Includes: PROPHYLAXIS for venous thrombosis, systemic embolization; TREATMENT for venous thrombosis and/or pulmonary embolus.HIGH RISK: Target INR is 2.5-3.5 for patients with mechanical heart valves.POCT-GLUCOSE [id number] 03:20:26 Test Item Value Reference Range Interpretation Comments POC-GLUCOSE METER 241 mg/dL 70-110 H : TESTED A T [facility] 6720 (BEAKER) (test code = [facility], 153) [address]: Security Patrol Officer/Techni waylon ID = [id number] for Ra bhavesh Jacobo RETICULOCYTE [id number] 03:20:19 Test Item Value Reference Range Interpretation Comments RETICULOCYTE COUNT PCT (BEAKER) (test 15.3 % 0.5-1.7 H code = 575) Security Patrol Officer ID - 6000BLOOD GAS, [id number] 03:17:01 Test Item Value Reference Range Interpretation Comments PH ARTERIAL (BEAKER) (test code = 7.51 7.35-7.45 H 383) PCO2 ARTERIAL (BEAKER) (test code 24 mm Hg 35-45 L = 384) PO2 ARTERIAL (BEAKER) (test code 194 mm Hg 80-90 H = 385) O2 SATURATION ARTERIAL (BEAKER) 99.5 % 96.0-97.0 H (test code = 386) HCO3 ARTERIAL (BEAKER) (test code 19 mmol/L 21-29 L = 388) BASE EXCESS ARTERIAL (BEAKER) -3.9 mmol/L -2.0-3.0 L (test code = 387) PATIENT TEMPERATURE (BEAKER) 37.0 (test code = 1818) FIO2 (BEAKER) (test code = 1819) 32.0 POCT-GLUCOSE [id number] 23:47:35 Test Item Value Reference Range Interpretation Comments POC-GLUCOSE METER 287 mg/dL 70-110 H : TESTED A T [facility] 6720 (BEAKER) (test code = [facility], 153) [address]: Security Patrol Officer/Techni waylon ID = [id number] for Ra bhavesh Jacobo POCT-GLUCOSE [id number] 21:21:51 Test Item Value Reference Range Interpretation Comments POC-GLUCOSE METER 353 mg/dL 70-110 H : TESTED A T [facility] (SANDRAAKER) (test code = [place], 1538) [address]: Security Patrol Officer/Techni waylon ID = [id number] for Ra bhavesh Jacobo BLOOD CULTURE IDENTIFICATION [id number] 20:54:54 Test Item Value Reference Interpretation Comments Range MCR-1 (BEAKER) (test Non Applicable Not detected Note: Antimicrobial code = [id number]) resistanc e can occur via multi ple mechanisms. A N ot Detected result for antimicrobial resistance gene (s) does not indica te antimicrobial susceptibility. Subculturing is required for species identification and susceptibility testing of isolates. CTX-M (SANDRAAKER) (test Non Applicable Not detected Note: Antimicrobial code = 3275434843) resistanc e can occur via multi ple mechanisms. A N ot Detected result for antimicrobial resistance gene (s) does not indica te antimicrobial susceptibility. Subculturing is required for species identification and susceptibility testing of isolates. IMP (KY) (test code = Non Applicable Not Detected Note : Antimicrobial 1079219717) resistance can occur via multi ple mechanisms. A N ot Detected result for antimicrobial resistance gene (s) does not indica te antimicrobial susceptibility. Subculturing is required for species identification and susceptibility testing of isolates. KPC (BKR) (test code = Non Applicable Not detected Not e: Antimicrobial 9376764567) resistance can occur via multi ple mechanisms. A N ot Detected result for antimicrobial resistance gene (s) does not indica te antimicrobial susceptibility. Subculturing is required for species identification and susceptibility testing of isolates. NDM (BKR) (test code = Non Applicable Not Detected Not e: Antimicrobial 6743140549) resistance can occur via multi ple mechanisms. A N ot Detected result for antimicrobial resistance gene (s) does not indica te antimicrobial susceptibility. Subculturing is required for species identification and susceptibility testing of isolates. OXA-48-LIKE (BKR) Non Applicable Not Detected Note: An timicrobial (test code = resistance can 5192299906) occur via multi ple mechanisms. A N ot Detected result for antimicrobial resistance gene (s) does not indica te antimicrobial susceptibility. Subculturing is required for species identification and susceptibility testing of isolates. VIM (BKR) (test code = Non Applicable Not detected Not e: Antimicrobial 6903500745) resistance can occur via multi ple mechanisms. A N ot Detected result for antimicrobial resistance gene (s) does not indica te antimicrobial susceptibility. Subculturing is required for species identification and susceptibility testing of isolates. MEC A/C (KY) (test Non Applicable Not detected Note: A ntimicrobial code = 2057143048) resistanc e can occur via multi ple mechanisms. A N ot Detected result for antimicrobial resistance gene (s) does not indica te antimicrobial susceptibility. Subculturing is required for species identification and susceptibility testing of isolates. MEC A/C AND MREJ Non Applicable Not Detected Note: Ant imicrobial (MRSA) [place] (test code = resis tance can 0315219493) occur via multi ple mechanisms. A N ot Detected result for antimicrobial resistance gene (s) does not indica te antimicrobial susceptibility. Subculturing is required for species identification and susceptibility testing of isolates. VAN A/B (VANCOMYCIN Non Applicable Not detected Note: Antimicrobial RESISTANCE) (test code resis tance can = 4132113909) occur via mult iple mechanisms. A N ot Detected result for antimicrobial resistance gene (s) does not indica te antimicrobial susceptibility. Subculturing is required for species identification and susceptibility testing of isolates. ENTEROCOCCUS FAECALIS Not detected Not detected (BKR) (test code = 9926858832) ENTEROCOCCUS FAECIUM Not detected Not detected (BKR) (test code = 1587456635) LISTERIA MONOCYTOGENES Not detected Not detected (test code = 2174902) STAPHYLOCOCCUS (test Not detected Not detected code = 2108258) STAPHYLOCOCCUS AUREUS Not detected Not detected (test code = 6273029) STAPHYLOCOCCUS Not detected Not detected EPIDERMIDIS (KY) (test code = 4378799432) STAPHYLOCOCCUS Not detected Not detected LUGDENENSIS (BKR) (test code = 1342624030) STREPTOCOCCUS (test Not detected Not detected code = 8742232) STREPTOCOCCUS Not detected Not detected AGALACTIAE (GROUP B) (test code = 8829429) STREPTOCOCCUS Not detected Not detected PNEUMONIAE (test code = 8564959) STREPTOCOCCUS PYOGENES Not detected Not detected (GROUP A) (test code = 9259408) ACINETOBACTER Not detected Not detected CALCOACETICUS-BAUMANNI I COMPLEX (BKR) (test code = 7712) BACTEROIDES FRAGILIS Not detected Not detected (KY) (test code = 6706495166) ENTEROBACTERALES (test Not detected Not detected code = 8482452509) ENTEROBACTER CLOACOE Not detected Not detected COMPLEX (test code = 1891513) ESCHERICHIA COLI (test Not detected Not detected code = 1034504) KLEBSIELLA AEROGENES Not detected Not detected (BKR) (test code = 6915081503) KLEBSIELLA OXYTOCA Not detected Not detected (test code = 5055418) KLEBSIELLA PNEUMONIAE Not detected Not detected GROUP (test code = 1402480240) PROTEUS (test code = Not detected Not detected 0652085) SALMONELLA SPECIES Not detected Not detected (KY) (test code = 1165638370) SERRATIA MARCESCENS Not detected Not detected (test code = 4612072) HAEMOPHILUS INFLUENZAE Not detected Not detected (test code = 5015648) NEISSERIA MENINGITIDIS Not detected Not detected (test code = 8999795) PSEUDOMONAS Not detected Not detected AERUGINOSA-BEAKER (test code = 8149191) STENOTROPHOMONAS Not detected Not detected MALTOPHILIA (BKR) (test code = 0790493756) NEGIN ALBICANS (test Not detected Not detected code = 2500077) NEGIN AURIS (KY) Not detected Not detected (test code = 8027866547) NEGIN GLABRATA (test Not detected Not detected code = 6947107) NEGIN KRUSEI (test Not detected Not detected code = 1132144) NEGIN PARAPSILOSIS Not detected Not detected (test code = 3412373) NEGIN TROPICALIS Not detected Not detected (BKR) (test code = 2703763) CRYPTOCOCCUS Not detected Not detected NEOFORMANS/GATTII (test code = 0163968265) Other bacteria and resistance markers not targeted by this PCR panel cannot be excluded; therefore clinical correlation and follow up of serology, culture results, and other molecular studies is required. The results are not intended to be used as the sole means for clinical diagnosis or patient management decisions. This sample was tested at the [facility] using the [employer] Blood Culture ID Panel. It is FDA cleared and has been verified and approved by the [facility] for clinical use. This laboratory is CLIA-certified and College ofAmerican Pathologists (CAP)-accredited to perform high complexity testing.CBC (HEMOGRAM ONLY)2022-12-24 20:52:14 Test Item Value Reference Range Interpretation Comments WHITE BLOOD CELL COUNT (BEAKER) 31.6 K/ L 3.5-10.5 H (test code = 775) RED BLOOD CELL COUNT (BEAKER) 2.01 M/ L 3.93-5.22 L (test code = 761) HEMOGLOBIN (BEAKER) (test code = 6.3 GM/DL 11.2-15.7 L 410) HEMATOCRIT (BEAKER) (test code = 19.5 % 34.1-44.9 L 411) MEAN CORPUSCULAR VOLUME (BEAKER) 97 fL 79-95 H (test code = 753) MEAN CORPUSCULAR HEMOGLOBIN 31.3 pg 25.6-32.2 (BEAKER) (test code = 751) MEAN CORPUSCULAR HEMOGLOBIN CONC 32.3 GM/DL 32.2-35.5 (BEAKER) (test code = 752) RED CELL DISTRIBUTION WIDTH 24.7 % 11.7-14.4 H (BEAKER) (test code = 412) PLATELET COUNT (BEAKER) (test 191 K/CU MM 150-450 code = 756) MEAN PLATELET VOLUME (BEAKER) 13.1 fL 9.4-12.3 H (test code = 754) NUCLEATED RED BLOOD CELLS 5 /100 WBC 0-0 H (BEAKER) (test code = 413) CT, [id number] 20:32:00Unlisted Reason for Exam - Click Yes and Enter Reason Below->NoProtocol Please Specify:->Standard ProtocolWill this procedure require oral contrast?->No [facility] CENTERName: GRIS, LIZBETAMEENA VEGAS : 1975 Sex: FFINAL REPORT EXAM: CT abdomen and pelvis CLINICAL HISTORY: Abdominal pain TECHNIQUE: Helical images of the abdomen and pelvis were obtained without contrast DOSE REDUCTION: The exams was performed according to the departmental dose-optimization program which includes automated exposure control, adjustment of the mA and/or kV according to patient size and/or use of iterative recon struction technique. FINDINGS: The lung bases are clear. There is no evidence of pleural effusion. The cardiac size is within normal limits. The liver, spleen, pancreas, adrenal glands, and kidneys areunremarkable. The gallbladder has been removed. The small and large bowels are normal in caliber without evidence of obstruction. Mild mucosal thickening is noted in the region of the cecum, this may represent focal enteritis. The bladder, uterus, and ovaries are unremarkable. Scattered mildly prominent lymph nodes are noted in the retrocardiac region and inguinal region which may be reactive in nature. There is no evidence of free fluid. The aorta and IVC are normal in caliber. A left common femoral central venous catheter is noted terminating in the region of the common iliac vein. IMPRESSION: 1.Possible proximal colitis. 2. Status post cholecystectomy. Signed: Yasmani Cunningham MDReport VerifiedDate/Time: 12/24/2022 20:32:11 -GLUCOSE [id number] 18:05:55 Test Item Value Reference Range Interpretation Comments POC-GLUCOSE METER 369 mg/dL 70-110 H : TESTED A T [facility] 6720 [facility] (test code = [place], 1538) [address]: Security Patrol Officer/Techni waylon ID = [id number] for Tricia Landers EBV VIRAL [id number] 13:55:42 Test Item Value Reference Range Interpretation Comments EBV VIRAL LOAD - Negative or below See_Comment Endoge nous NEGATIVE (SANDRAAKER) the linear range inhibi tor (test code = 2559) of the assay discovere d upon QC (<500 IU /mL) investigation. Please recollec t and re-order.Th is is a corrected result. Previou s result was Nega tive or below the li near range of the as say (<500 IU /mL) o n 12/21/2022 at 16 23 CDT Soluble IL-2 [id number] 13:41:40 Test Item Value Reference Range Interpretation Comments Scan Result (test see scanned report See scanned report. code = [id number]) [facility] (HEMOGRAM ONLY)2022-12-24 12:15:28 Test Item Value Reference Range Interpretation Comments WHITE BLOOD CELL COUNT (BEAKER) 35.2 K/ L 3.5-10.5 H (test code = 775) RED BLOOD CELL COUNT (BEAKER) 2.14 M/ L 3.93-5.22 L (test code = 761) HEMOGLOBIN (BEAKER) (test code = 6.7 GM/DL 11.2-15.7 L 410) HEMATOCRIT (BEAKER) (test code = 20.7 % 34.1-44.9 L 411) MEAN CORPUSCULAR VOLUME (BEAKER) 97 fL 79-95 H (test code = 753) MEAN CORPUSCULAR HEMOGLOBIN 31.3 pg 25.6-32.2 (BEAKER) (test code = 751) MEAN CORPUSCULAR HEMOGLOBIN CONC 32.4 GM/DL 32.2-35.5 (BEAKER) (test code = 752) RED CELL DISTRIBUTION WIDTH 24.9 % 11.7-14.4 H (BEAKER) (test code = 412) PLATELET COUNT (BEAKER) (test 179 K/CU MM 150-450 code = 756) MEAN PLATELET VOLUME (BEAKER) 13.3 fL 9.4-12.3 H (test code = 754) NUCLEATED RED BLOOD CELLS 6 /100 WBC 0-0 H (BEAKER) (test code = 413) RAD, ABDOMEN/KUB, 1 VIEW [id number] 10:38:00Reason for exam:->eval ileus [facility] : 1975 Sex: FFINAL REPORT CLINICAL HISTORY: eval ileus TECHNIQUE: Supine abdomen COMPARISON: 10/22/2022 IMPRESSION: New NGT in the gastric fundus. New left femoral line. Nonspecific bowel gas pattern. Free air and air-fluid levels are not definitively seen, but cannot be excluded on the supineview. Signed: Tarun Lopez MDReport Verified Date/Time: 12/24/2022 10:38:45 Reading Location: [address] Reading Room POCT-GLUCOSE [id number] 10:02:47 Test Item Value Reference Range Interpretation Comments POC-GLUCOSE METER 219 mg/dL 70-110 H : TESTED A T [facility] 6720 (BEAKER) (test code = [place], 1538) [address]: Security Patrol Officer/Techni waylon ID = [id number] for Tricia Landers CBC W/PLT COUNT & AUTO [id number] 07:11:38 Test Item Value Reference Range Interpretation Comments WHITE BLOOD CELL COUNT (BEAKER) 32.2 K/ L 3.5-10.5 H (test code = 775) RED BLOOD CELL COUNT (BEAKER) 2.04 M/ L 3.93-5.22 L (test code = 761) HEMOGLOBIN (BEAKER) (test code = 6.2 GM/DL 11.2-15.7 L 410) HEMATOCRIT (BEAKER) (test code = 19.7 % 34.1-44.9 L 411) MEAN CORPUSCULAR VOLUME (BEAKER) 97 fL 79-95 H (test code = 753) MEAN CORPUSCULAR HEMOGLOBIN 30.4 pg 25.6-32.2 (BEAKER) (test code = 751) MEAN CORPUSCULAR HEMOGLOBIN CONC 31.5 GM/DL 32.2-35.5 L (BEAKER) (test code = 752) RED CELL DISTRIBUTION WIDTH 23.5 % 11.7-14.4 H (BEAKER) (test code = 412) PLATELET COUNT (BEAKER) (test 125 K/CU MM 150-450 L code = 756) MEAN PLATELET VOLUME (BEAKER) 12.5 fL 9.4-12.3 H (test code = 754) NUCLEATED RED BLOOD CELLS 4 /100 WBC 0-0 H (BEAKER) (test code = 413) (CELLAVISION MANUAL DIFF)2022-12-24 07:11:38 Test Item Value Reference Range Interpretation Comments NEUTROPHILS - REL 88 % (CELLAVISION)(BEAKER) (test code = 2816) LYMPHOCYTES - REL 4 % (CELLAVISION)(BEAKER) (test code = 2817) MONOCYTES - REL 4 % (CELLAVISION)(BEAKER) (test code = 2818) MYELOCYTES - REL 1 % 0-0 H (CELLAVISION)(BEAKER) (test code = 2822) BANDS - REL (CELLAVISION)(BEAKER) 2 % 0-10 (test code = 2826) NEUTROPHILS - ABS 28.34 K/ul 1.56-6.13 H (CELLAVISION)(BEAKER) (test code = 2830) LYMPHOCYTES - ABS 1.29 K/ul 1.18-3.74 (CELLAVISION)(BEAKER) (test code = 2831) MONOCYTES - ABS 1.29 K/uL 0.24-0.36 H (CELLAVISION)(BEAKER) (test code = 2832) MYELOCYTES-ABS 0.32 K/uL 0.00-0.00 H (CELLAVISION)(BEAKER) (test code = 2837) BANDS - ABS (CELLAVISION)(BEAKER) 0.64 K/uL 0.00-0.80 (test code = 2840) TOTAL COUNTED (BEAKER) (test code 100 = 1351) MANUAL NRBC PER 100 CELLS 3 /100 WBC 0-0 H (BEAKER) (test code = 1353) PLT MORPHOLOGY (BEAKER) (test Normal code = 486) SMUDGE CELLS (BEAKER) (test code Present = 1371) POLYCHROMATOPHILLIC RBCS(BEAKER) 3+ many (test code = 478) ANISOCYTOSIS (BEAKER) (test code 3+ many = 961) MICROCYTES (BEAKER) (test code = 2+ moderate 965) MACROCYTES (BEAKER) (test code = 1+ few 964) POIKILOCYTES (BEAKER) (test code 1+ few = 966) OVALOCYTES (BEAKER) (test code = 1+ few 477) TEAR DROP CELLS (BEAKER) (test 1+ few code = 481) BASOPHILIC STIPPLING (BEAKER) Present (test code = 473) ARTIFACT (CELLAVISION)(BEAKER) Present (test code = 3432) PLATELET CONCENTRATION Decreased (CELLAVISION)(BEAKER) (test code = 3438) Security Patrol Officer ID - [id number] ID - [email or web address] comments: Slide comments:RAD, CHEST, 1 VIEW, NON [id number] 06:47:00Reason for exam:->intubated patientShould this be performed at the bedside?->Yes [facility] : 1975 Sex: FFINAL REPORT CLINICAL HISTORY: intubated patient TECHNIQUE: 1 view of the chest. COMPARISON: 12/23/2022 IMPRESSION: ETT removal. NGT terminates in the stomach. Pulmonary vascular congestion and bilateral airspace opacities unchanged. No significant pleural fluid. No cardiomegaly. Signed: Tarun Lopez MDReport Verified Date/Time: 12/24/2022 06:47:02 POCT-GLUCOSE [id number] 05:36:01 Test Item Value Reference Range Interpretation Comments POC-GLUCOSE METER 137 mg/dL 70-110 H : TESTED A T [facility] 6720 (BEAKER) (test code = [place], 1538) [address]: Security Patrol Officer/Techni waylon ID = [id number] for Ra bhavesh Jacobo LACTATE DEHYDROGENASE (LDH)2022-12-24 03:15:27 Test Item Value Reference Range Interpretation Comments LACTATE DEHYDROGENASE (BEAKER) (test 1453 U/L 125-220 H code = 635) Security Patrol Officer ID - MMBASIC METABOLIC [id number] 03:15:26 Test Item Value Reference Range Interpretation Comments SODIUM (BEAKER) 137 meq/L 136-145 (test code = 381) POTASSIUM 4.8 meq/L 3.5-5.1 (BEAKER) (test code = 379) CHLORIDE (BEAKER) 104 meq/L 98-107 (test code = 382) CO2 (BEAKER) 22 meq/L 22-29 (test code = 355) BLOOD UREA 53 mg/dL 7-21 H NITROGEN (BEAKER) (test code = 354) CREATININE 1.91 mg/dL 0.57-1.25 H (BEAKER) (test code = 358) GLUCOSE RANDOM 186 mg/dL 70-105 H (BEAKER) (test code = 652) CALCIUM (BEAKER) 8.5 mg/dL 8.4-10.2 (test code = 697) EGFR (BEAKER) 32 Interpretatio n of eGFR (test code = [...] not appl icable for dialysis patien ts Security Patrol Officer ID - MMSpecimen moderately ictericHEPATIC FUNCTION [id number] 03:15:26 Test Item Value Reference Range Interpretation Comments TOTAL PROTEIN (BEAKER) (test code = 6.4 gm/dL 6.0-8.3 770) ALBUMIN (BEAKER) (test code = 1145) 2.9 g/dL 3.5-5.0 L BILIRUBIN TOTAL (BEAKER) (test code 7.8 mg/dL 0.2-1.2 H = 377) BILIRUBIN DIRECT (BEAKER) (test 5.6 mg/dL 0.1-0.5 H code = 706) ALKALINE PHOSPHATASE (BEAKER) (test 419 U/L 40-150 H code = 346) AST (SGOT) (BEAKER) (test code = 128 U/L 5-34 H 353) ALT (SGPT) (BEAKER) (test code = 243 U/L 6-55 H 347) Security Patrol Officer ID - MMSpecimen moderately [id number] 03:15:25 Test Item Value Reference Range Interpretation Comments MAGNESIUM (BEAKER) (test code = 2.1 mg/dL 1.6-2.6 627) Security Patrol Officer ID - [id number] 03:15:25 Test Item Value Reference Range Interpretation Comments PHOSPHORUS (BEAKER) (test code = 3.4 mg/dL 2.3-4.7 604) Security Patrol Officer ID - MMBLOOD GAS, [id number] 03:11:11 Test Item Value Reference Range Interpretation Comments PH ARTERIAL (BEAKER) (test code = 7.52 7.35-7.45 H 383) PCO2 ARTERIAL (BEAKER) (test code 30 mm Hg 35-45 L = 384) PO2 ARTERIAL (BEAKER) (test code = 149 mm Hg 80-90 H 385) O2 SATURATION ARTERIAL (BEAKER) 99.2 % 96.0-97.0 H (test code = 386) HCO3 ARTERIAL (BEAKER) (test code 24 mmol/L 21-29 = 388) BASE EXCESS ARTERIAL (BEAKER) 1.1 mmol/L -2.0-3.0 (test code = 387) PATIENT TEMPERATURE (BEAKER) (test 37.0 code = 1818) FIO2 (BEAKER) (test code = 1819) 40.0 CALCIUM, [id number] 03:11:05 Test Item Value Reference Range Interpretation Comments CALCIUM IONIZED (BEAKER) (test 1.08 mmol/L 1.12-1.27 L code = 698) PH, BLOOD (BEAKER) (test code = 7.52 1810) [id number] 03:08:43 Test Item Value Reference Range Interpretation Comments HAPTOGLOBIN (BEAKER) (test code = 8 mg/dL 14-258 L 366) Security Patrol Officer ID - BSRETICULOCYTE [id number] 03:02:26 Test Item Value Reference Range Interpretation Comments RETICULOCYTE COUNT PCT (BEAKER) (test 13.0 % 0.5-1.7 H code = 575) Security Patrol Officer ID - [id number] ID - [id number] 02:56:37 Test Item Value Reference Range Interpretation Comments FIBRINOGEN LEVEL (BEAKER) (test 207 mg/dl 225-434 L code = 658) [id number] 02:56:15 Test Item Value Reference Range Interpretation Comments PROTIME (BEAKER) (test code = 15.9 seconds 11.9-14.2 H 759) INR (BEAKER) (test code = 370) 1.30 <=5.90 PARTIAL THROMBOPLASTIN TIME 24.3 seconds 22.5-36.0 (BEAKER) (test code = 760) RECOMMENDED COUMADIN/WARFARIN INR THERAPY RANGESSTANDARD DOSE: 2.0 - 3.0 Includes: PROPHYLAXIS for venous thrombosis, systemic embolization; TREATMENT for venous thrombosis and/or pulmonary embolus.HIGH RISK: Target INR is 2.5-3.5 for patients with mechanical heart valves.POCT-GLUCOSE [id number] 00:23:51 Test Item Value Reference Range Interpretation Comments POC-GLUCOSE METER 182 mg/dL 70-110 H : TESTED A T [facility] [address]20 (BEAKER) (test code = [place], 1538) [id number]: Security Patrol Officer/Techni waylon ID = [id number] for Ra bhavesh Jacobo BASIC METABOLIC [id number] 23:17:38 Test Item Value Reference Range Interpretation Comments SODIUM (BEAKER) 134 meq/L 136-145 L (test code = 381) POTASSIUM 4.8 meq/L 3.5-5.1 (BEAKER) (test code = 379) CHLORIDE (BEAKER) 104 meq/L 98-107 (test code = 382) CO2 (BEAKER) 20 meq/L 22-29 L (test code = 355) BLOOD UREA 61 mg/dL 7-21 H NITROGEN (BEAKER) (test code = 354) CREATININE 1.99 mg/dL 0.57-1.25 H (BEAKER) (test code = 358) GLUCOSE RANDOM 221 mg/dL 70-105 H (BEAKER) (test code = 652) CALCIUM (BEAKER) 8.4 mg/dL 8.4-10.2 (test code = 697) EGFR (BEAKER) 30 Interpretatio n of eGFR (test code = [...] not appl icable for dialysis patien ts Security Patrol Officer ID - BSSpecimen moderately [id number] 23:17:37 Test Item Value Reference Range Interpretation Comments MAGNESIUM (BEAKER) (test code = 2.2 mg/dL 1.6-2.6 627) Security Patrol Officer ID - [id number] 23:17:37 Test Item Value Reference Range Interpretation Comments PHOSPHORUS (BEAKER) (test code = 3.0 mg/dL 2.3-4.7 604) Security Patrol Officer ID - BSCALCIUM, [id number] 22:23:48 Test Item Value Reference Range Interpretation Comments CALCIUM IONIZED (BEAKER) (test 1.08 mmol/L 1.12-1.27 L code = 698) PH, BLOOD (BEAKER) (test code = 7.54 1810) CBC (HEMOGRAM ONLY)2022-12-23 19:48:57 Test Item Value Reference Range Interpretation Comments WHITE BLOOD CELL COUNT (BEAKER) 25.9 K/ L 3.5-10.5 H (test code = 775) RED BLOOD CELL COUNT (BEAKER) 1.84 M/ L 3.93-5.22 L (test code = 761) HEMOGLOBIN (BEAKER) (test code = 5.8 GM/DL 11.2-15.7 LL 410) HEMATOCRIT (BEAKER) (test code = 17.4 % 34.1-44.9 L 411) MEAN CORPUSCULAR VOLUME (BEAKER) 95 fL 79-95 (test code = 753) MEAN CORPUSCULAR HEMOGLOBIN 31.5 pg 25.6-32.2 (BEAKER) (test code = 751) MEAN CORPUSCULAR HEMOGLOBIN CONC 33.3 GM/DL 32.2-35.5 (BEAKER) (test code = 752) RED CELL DISTRIBUTION WIDTH 22.7 % 11.7-14.4 H (BEAKER) (test code = 412) PLATELET COUNT (BEAKER) (test 128 K/CU MM 150-450 L code = 756) MEAN PLATELET VOLUME (BEAKER) 13.0 fL 9.4-12.3 H (test code = 754) NUCLEATED RED BLOOD CELLS 3 /100 WBC 0-0 H (BEAKER) (test code = 413) POCT-GLUCOSE [id number] 18:19:04 Test Item Value Reference Range Interpretation Comments POC-GLUCOSE METER 274 mg/dL 70-110 H : TESTED A T [facility] 67[address] (BEAKER) (test code = [place], 1538) [id number]: Security Patrol Officer/Techni waylon ID = [id number] for Tricia Landers BASIC METABOLIC [id number] 13:10:01 Test Item Value Reference Range Interpretation Comments SODIUM (BEAKER) 132 meq/L 136-145 L (test code = 381) POTASSIUM 4.9 meq/L 3.5-5.1 (BEAKER) (test code = 379) CHLORIDE (BEAKER) 102 meq/L 98-107 (test code = 382) CO2 (BEAKER) 20 meq/L 22-29 L (test code = 355) BLOOD UREA 64 mg/dL 7-21 H NITROGEN (BEAKER) (test code = 354) CREATININE 2.25 mg/dL 0.57-1.25 H (BEAKER) (test code = 358) GLUCOSE RANDOM 250 mg/dL 70-105 H (BEAKER) (test code = 652) CALCIUM (BEAKER) 8.2 mg/dL 8.4-10.2 L (test code = 697) EGFR (BEAKER) 26 Interpretati on of eGFR (test code = [...] not appl icable for dialysis patien ts Security Patrol Officer ID - ROBYNOSpecimen moderately [id number] 12:21:36 Test Item Value Reference Range Interpretation Comments PHOSPHORUS (BEAKER) (test code = 3.4 mg/dL 2.3-4.7 604) Security Patrol Officer ID - [id number] 12:21:35 Test Item Value Reference Range Interpretation Comments MAGNESIUM (BEAKER) (test code = 2.3 mg/dL 1.6-2.6 627) Security Patrol Officer ID - ROBYNOCBC (HEMOGRAM ONLY)2022-12-23 11:54:36 Test Item Value Reference Range Interpretation Comments WHITE BLOOD CELL COUNT (BEAKER) 25.7 K/ L 3.5-10.5 H (test code = 775) RED BLOOD CELL COUNT (BEAKER) 1.83 M/ L 3.93-5.22 L (test code = 761) HEMOGLOBIN (BEAKER) (test code = 5.6 GM/DL 11.2-15.7 LL 410) HEMATOCRIT (BEAKER) (test code = 17.3 % 34.1-44.9 L 411) MEAN CORPUSCULAR VOLUME (BEAKER) 95 fL 79-95 (test code = 753) MEAN CORPUSCULAR HEMOGLOBIN 30.6 pg 25.6-32.2 (BEAKER) (test code = 751) MEAN CORPUSCULAR HEMOGLOBIN CONC 32.4 GM/DL 32.2-35.5 (BEAKER) (test code = 752) RED CELL DISTRIBUTION WIDTH 22.1 % 11.7-14.4 H (BEAKER) (test code = 412) PLATELET COUNT (BEAKER) (test 124 K/CU MM 150-450 L code = 756) MEAN PLATELET VOLUME (BEAKER) 12.7 fL 9.4-12.3 H (test code = 754) NUCLEATED RED BLOOD CELLS 3 /100 WBC 0-0 H (BEAKER) (test code = 413) POCT-GLUCOSE [id number] 11:40:57 Test Item Value Reference Range Interpretation Comments POC-GLUCOSE METER 250 mg/dL 70-110 H : TESTED A T [facility] 67[address] (BEAKER) (test code = [place], 1538) [address]: Security Patrol Officer/Techni waylon ID = [id number] for Tricia Landers CALCIUM, [id number] 11:33:41 Test Item Value Reference Range Interpretation Comments CALCIUM IONIZED (BEAKER) (test 1.12 mmol/L 1.12-1.27 code = 698) PH, BLOOD (BEAKER) (test code = 7.42 1810) RAD, CHEST, 1 VIEW, NON [id number] 09:39:00Reason for exam:->intubated ptShould this be performed at the bedside?->Yes [facility] : 1975 Sex: FFINAL REPORT CLINICAL HISTORY: intubated pt TECHNIQUE: 1 view of the chest. COMPARISON: 12/22/2022 IMPRESSION: Right central line removal. ETT terminates 3.5 cm above the wilfredo. NGT terminates in the stomach. Pulmonary vascular congestion and bilateral airspace opacities unchanged. Subpulmonic pleural effusions cannot be excluded. No cardiomegaly. Signed: Tarun Lopez MDReport Verified Date/Time: 12/23/2022 09:39:27 Reading Location: [address] Reading Room (CELLAVISION MANUAL DIFF)2022-12-23 06:25:13 Test Item Value Reference Range Interpretation Comments NEUTROPHILS - REL 91 % (CELLAVISION)(BEAKER) (test code = 2816) LYMPHOCYTES - REL 5 % (CELLAVISION)(BEAKER) (test code = 2817) MONOCYTES - REL 2 % (CELLAVISION)(BEAKER) (test code = 2818) BANDS - REL (CELLAVISION)(BEAKER) 2 % 0-10 (test code = 2826) NEUTROPHILS - ABS 22.93 K/ul 1.56-6.13 H (CELLAVISION)(BEAKER) (test code = 2830) LYMPHOCYTES - ABS 1.26 K/ul 1.18-3.74 (CELLAVISION)(BEAKER) (test code = 2831) MONOCYTES - ABS 0.50 K/uL 0.24-0.36 H (CELLAVISION)(BEAKER) (test code = 2832) BANDS - ABS (CELLAVISION)(BEAKER) 0.50 K/uL 0.00-0.80 (test code = 2840) TOTAL COUNTED (BEAKER) (test code 100 = 1351) MANUAL NRBC PER 100 CELLS 2 /100 WBC 0-0 H (BEAKER) (test code = 1353) PLT MORPHOLOGY (BEAKER) (test Normal code = 486) SMUDGE CELLS (BEAKER) (test code Present = 1371) POLYCHROMATOPHILLIC RBCS(BEAKER) 3+ many (test code = 478) ANISOCYTOSIS (BEAKER) (test code 2+ moderate = 961) MICROCYTES (BEAKER) (test code = 2+ moderate 965) MACROCYTES (BEAKER) (test code = 2+ moderate 964) POIKILOCYTES (BEAKER) (test code 2+ moderate = 966) SPHEROCYTES (BEAKER) (test code = 2+ moderate 768) OVALOCYTES (BEAKER) (test code = 2+ moderate 477) BASOPHILIC STIPPLING (BEAKER) Present (test code = 473) ARTIFACT (CELLAVISION)(BEAKER) Present (test code = 3432) PLATELET CONCENTRATION Decreased (CELLAVISION)(BEAKER) (test code = 3438) Security Patrol Officer ID - [id number] ID - Stella comments: Slide comments:CBC W/PLT COUNT & AUTO [id number] 06:25:04 Test Item Value Reference Range Interpretation Comments WHITE BLOOD CELL COUNT (BEAKER) 25.2 K/ L 3.5-10.5 H (test code = 775) RED BLOOD CELL COUNT (BEAKER) 1.85 M/ L 3.93-5.22 L (test code = 761) HEMOGLOBIN (BEAKER) (test code = 5.6 GM/DL 11.2-15.7 LL 410) HEMATOCRIT (BEAKER) (test code = 17.2 % 34.1-44.9 L 411) MEAN CORPUSCULAR VOLUME (BEAKER) 93 fL 79-95 (test code = 753) MEAN CORPUSCULAR HEMOGLOBIN 30.3 pg 25.6-32.2 (BEAKER) (test code = 751) MEAN CORPUSCULAR HEMOGLOBIN CONC 32.6 GM/DL 32.2-35.5 (BEAKER) (test code = 752) RED CELL DISTRIBUTION WIDTH 22.0 % 11.7-14.4 H (BEAKER) (test code = 412) PLATELET COUNT (BEAKER) (test 119 K/CU MM 150-450 L code = 756) MEAN PLATELET VOLUME (BEAKER) 12.6 fL 9.4-12.3 H (test code = 754) NUCLEATED RED BLOOD CELLS 3 /100 WBC 0-0 H (BEAKER) (test code = 413) POCT-GLUCOSE [id number] 05:47:13 Test Item Value Reference Range Interpretation Comments POC-GLUCOSE METER 227 mg/dL 70-110 H : TESTED A T [facility] 67[address] (BEAKER) (test code = [place], 1538) [id number]: Security Patrol Officer/Techni waylon ID = [id number] for Ra Odalis bhavesh BASIC METABOLIC [id number] 04:35:12 Test Item Value Reference Range Interpretation Comments SODIUM (BEAKER) 132 meq/L 136-145 L (test code = 381) POTASSIUM 4.8 meq/L 3.5-5.1 (BEAKER) (test code = 379) CHLORIDE (BEAKER) 103 meq/L 98-107 (test code = 382) CO2 (BEAKER) 19 meq/L 22-29 L (test code = 355) BLOOD UREA 64 mg/dL 7-21 H NITROGEN (BEAKER) (test code = 354) CREATININE 2.33 mg/dL 0.57-1.25 H (BEAKER) (test code = 358) GLUCOSE RANDOM 227 mg/dL 70-105 H (BEAKER) (test code = 652) CALCIUM (BEAKER) 8.2 mg/dL 8.4-10.2 L (test code = 697) EGFR (BEAKER) 25 Interpretatio n of eGFR (test code = [...] not appl icable for dialysis patien ts Security Patrol Officer ID - DBSpecimen moderately ictericLACTATE DEHYDROGENASE (LDH)2022-12-23 04:32:00 Test Item Value Reference Range Interpretation Comments LACTATE DEHYDROGENASE (BEAKER) (test 1408 U/L 125-220 H code = 635) Security Patrol Officer ID - [id number] 04:31:59 Test Item Value Reference Range Interpretation Comments PHOSPHORUS (BEAKER) (test code = 3.2 mg/dL 2.3-4.7 604) Security Patrol Officer ID - DBHEPATIC FUNCTION [id number] 04:31:59 Test Item Value Reference Range Interpretation Comments TOTAL PROTEIN (BEAKER) (test code = 6.2 gm/dL 6.0-8.3 770) ALBUMIN (BEAKER) (test code = 1145) 2.7 g/dL 3.5-5.0 L BILIRUBIN TOTAL (BEAKER) (test code 8.1 mg/dL 0.2-1.2 H = 377) BILIRUBIN DIRECT (BEAKER) (test 5.5 mg/dL 0.1-0.5 H code = 706) ALKALINE PHOSPHATASE (BEAKER) (test 384 U/L 40-150 H code = 346) AST (SGOT) (BEAKER) (test code = 148 U/L 5-34 H 353) ALT (SGPT) (BEAKER) (test code = 275 U/L 6-55 H 347) Security Patrol Officer ID - DBSpecimen moderately [id number] 04:31:58 Test Item Value Reference Range Interpretation Comments MAGNESIUM (BEAKER) (test code = 2.3 mg/dL 1.6-2.6 627) Security Patrol Officer ID - [id number] 04:03:53 Test Item Value Reference Range Interpretation Comments HAPTOGLOBIN (BEAKER) (test code = 13 mg/dL 14-258 L 366) Security Patrol Officer ID - DBPT/[id number] 03:50:08 Test Item Value Reference Range Interpretation Comments PROTIME (BEAKER) (test code = 15.1 seconds 11.9-14.2 H 759) INR (BEAKER) (test code = 370) 1.27 <=5.90 PARTIAL THROMBOPLASTIN TIME 22.7 seconds 22.5-36.0 (BEAKER) (test code = 760) RECOMMENDED COUMADIN/WARFARIN INR THERAPY RANGESSTANDARD DOSE: 2.0 - 3.0 Includes: PROPHYLAXIS for venous thrombosis, systemic embolization; TREATMENT for venous thrombosis and/or pulmonary embolus.HIGH RISK: Target INR is 2.5-3.5 for patients with mechanical heart valves.[id number] 03:50:02 Test Item Value Reference Range Interpretation Comments FIBRINOGEN LEVEL (BEAKER) (test 302 mg/dl 225-434 code = 658) RETICULOCYTE [id number] 03:48:32 Test Item Value Reference Range Interpretation Comments RETICULOCYTE COUNT PCT (BEAKER) (test 10.0 % 0.5-1.7 H code = 575) Security Patrol Officer ID - [id number] ID - 6000BLOOD GAS, [id number] 03:44:35 Test Item Value Reference Range Interpretation Comments PH ARTERIAL (BEAKER) (test code = 7.46 7.35-7.45 H 383) PCO2 ARTERIAL (BEAKER) (test code 32 mm Hg 35-45 L = 384) PO2 ARTERIAL (BEAKER) (test code 178 mm Hg 80-90 H = 385) O2 SATURATION ARTERIAL (BEAKER) 99.3 % 96.0-97.0 H (test code = 386) HCO3 ARTERIAL (BEAKER) (test code 22 mmol/L 21-29 = 388) BASE EXCESS ARTERIAL (BEAKER) -1.4 mmol/L -2.0-3.0 (test code = 387) PATIENT TEMPERATURE (BEAKER) 37.0 (test code = 1818) FIO2 (BEAKER) (test code = 1819) 30.0 CALCIUM, [id number] 03:43:03 Test Item Value Reference Range Interpretation Comments CALCIUM IONIZED (BEAKER) (test 1.13 mmol/L 1.12-1.27 code = 698) PH, BLOOD (BEAKER) (test code = 7.46 1810) POCT-GLUCOSE [id number] 03:31:21 Test Item Value Reference Range Interpretation Comments POC-GLUCOSE METER 210 mg/dL 70-110 H : TESTED A T [facility] 6720 (BEAKER) (test code = [facility], 1538) [address]: Security Patrol Officer/Techni waylon ID = [id number] for Ra junito Jacobocatia POCT-GLUCOSE [id number] 01:22:25 Test Item Value Reference Range Interpretation Comments POC-GLUCOSE METER 236 mg/dL 70-110 H : TESTED A T [facility] 6720 (BEAKER) (test code = [facility], 1538) 467[address]: Security Patrol Officer/Techni waylon ID = [id number] for Ra junito Jacobocatia POCT-GLUCOSE [id number] 22:04:21 Test Item Value Reference Range Interpretation Comments POC-GLUCOSE METER 258 mg/dL 70-110 H : TESTED A T [facility] 6720 (BEAKER) (test code = [facility], 1538) 36[address]: Security Patrol Officer/Techni waylon ID = [id number] for Ra junito Jacobocatia BASIC METABOLIC [id number] 20:33:41 Test Item Value Reference Range Interpretation Comments SODIUM (BEAKER) 133 meq/L 136-145 L (test code = 381) POTASSIUM 5.0 meq/L 3.5-5.1 (BEAKER) (test code = 379) CHLORIDE (BEAKER) 105 meq/L 98-107 (test code = 382) CO2 (BEAKER) 20 meq/L 22-29 L (test code = 355) BLOOD UREA 69 mg/dL 7-21 H NITROGEN (BEAKER) (test code = 354) CREATININE 2.60 mg/dL 0.57-1.25 H (BEAKER) (test code = 358) GLUCOSE RANDOM 259 mg/dL 70-105 H (BEAKER) (test code = 652) CALCIUM (BEAKER) 8.2 mg/dL 8.4-10.2 L (test code = 697) EGFR (BEAKER) 22 Interpretati on of eGFR (test code = [...] not appl icable for dialysis patien ts Security Patrol Officer ID - ADMINSpecimen moderately [id number] 20:29:51 Test Item Value Reference Range Interpretation Comments MAGNESIUM (BEAKER) (test code = 2.4 mg/dL 1.6-2.6 627) Security Patrol Officer ID - [id number] 20:29:51 Test Item Value Reference Range Interpretation Comments PHOSPHORUS (BEAKER) (test code = 3.6 mg/dL 2.3-4.7 604) Security Patrol Officer ID - ADMINCALCIUM, [id number] 20:27:40 Test Item Value Reference Range Interpretation Comments CALCIUM IONIZED (BEAKER) (test 1.07 mmol/L 1.12-1.27 L code = 698) PH, BLOOD (BEAKER) (test code = 7.40 1810) CBC (HEMOGRAM ONLY)2022-12-22 20:10:27 Test Item Value Reference Range Interpretation Comments WHITE BLOOD CELL COUNT (BEAKER) 17.6 K/ L 3.5-10.5 H (test code = 775) RED BLOOD CELL COUNT (BEAKER) 1.68 M/ L 3.93-5.22 L (test code = 761) HEMOGLOBIN (BEAKER) (test code = 5.1 GM/DL 11.2-15.7 LL 410) HEMATOCRIT (BEAKER) (test code = 15.8 % 34.1-44.9 L 411) MEAN CORPUSCULAR VOLUME (BEAKER) 94 fL 79-95 (test code = 753) MEAN CORPUSCULAR HEMOGLOBIN 30.4 pg 25.6-32.2 (BEAKER) (test code = 751) MEAN CORPUSCULAR HEMOGLOBIN CONC 32.3 GM/DL 32.2-35.5 (BEAKER) (test code = 752) RED CELL DISTRIBUTION WIDTH 20.9 % 11.7-14.4 H (BEAKER) (test code = 412) PLATELET COUNT (BEAKER) (test code 95 K/CU MM 150-450 L = 756) MEAN PLATELET VOLUME (BEAKER) 12.5 fL 9.4-12.3 H (test code = 754) NUCLEATED RED BLOOD CELLS (BEAKER) 3 /100 WBC 0-0 H (test code = 413) POCT-GLUCOSE [id number] 17:38:23 Test Item Value Reference Range Interpretation Comments POC-GLUCOSE METER 279 mg/dL 70-110 H : TESTED A T [facility] 67[address] (BEAKER) (test code = [place], 1538) [address]: Security Patrol Officer/Techni waylon ID = [id number] for Ed wards ([facility])Nicol BLOOD [id number] 16:00:38 Test Item Value Reference Range Interpretation Comments CULTURE (BEAKER) (test No growth in 5 days code = 1095) BASIC METABOLIC [id number] 13:22:19 Test Item Value Reference Range Interpretation Comments SODIUM (BEAKER) 134 meq/L 136-145 L (test code = 381) POTASSIUM 5.0 meq/L 3.5-5.1 (BEAKER) (test code = 379) CHLORIDE (BEAKER) 104 meq/L 98-107 (test code = 382) CO2 (BEAKER) 22 meq/L 22-29 (test code = 355) BLOOD UREA 62 mg/dL 7-21 H NITROGEN (BEAKER) (test code = 354) CREATININE 2.40 mg/dL 0.57-1.25 H (BEAKER) (test code = 358) GLUCOSE RANDOM 229 mg/dL 70-105 H (BEAKER) (test code = 652) CALCIUM (BEAKER) 8.5 mg/dL 8.4-10.2 (test code = 697) EGFR (BEAKER) 24 Interpretatio n of eGFR (test code = [...] not appl icable for dialysis patien ts Security Patrol Officer ID - ADMINSpecimen moderately [id number] 13:21:02 Test Item Value Reference Range Interpretation Comments MAGNESIUM (BEAKER) (test code = 2.5 mg/dL 1.6-2.6 627) Security Patrol Officer ID - [id number] 13:21:02 Test Item Value Reference Range Interpretation Comments PHOSPHORUS (BEAKER) (test code = 3.1 mg/dL 2.3-4.7 604) Security Patrol Officer ID - ADMINCBC (HEMOGRAM ONLY)2022-12-22 13:13:25 Test Item Value Reference Range Interpretation Comments WHITE BLOOD CELL COUNT (BEAKER) 17.6 K/ L 3.5-10.5 H (test code = 775) RED BLOOD CELL COUNT (BEAKER) 1.82 M/ L 3.93-5.22 L (test code = 761) HEMOGLOBIN (BEAKER) (test code = 5.5 GM/DL 11.2-15.7 LL 410) HEMATOCRIT (BEAKER) (test code = 16.5 % 34.1-44.9 L 411) MEAN CORPUSCULAR VOLUME (BEAKER) 91 fL 79-95 (test code = 753) MEAN CORPUSCULAR HEMOGLOBIN 30.2 pg 25.6-32.2 (BEAKER) (test code = 751) MEAN CORPUSCULAR HEMOGLOBIN CONC 33.3 GM/DL 32.2-35.5 (BEAKER) (test code = 752) RED CELL DISTRIBUTION WIDTH 20.5 % 11.7-14.4 H (BEAKER) (test code = 412) PLATELET COUNT (BEAKER) (test code 97 K/CU MM 150-450 L = 756) MEAN PLATELET VOLUME (BEAKER) 12.9 fL 9.4-12.3 H (test code = 754) NUCLEATED RED BLOOD CELLS (BEAKER) 4 /100 WBC 0-0 H (test code = 413) CALCIUM, [id number] 12:51:31 Test Item Value Reference Range Interpretation Comments CALCIUM IONIZED (BEAKER) (test 1.14 mmol/L 1.12-1.27 code = 698) PH, BLOOD (BEAKER) (test code = 7.43 1810) ANTI-NUCLEAR ANTIBODY ([place])2022-12-22 12:43:32 Test Item Value Reference Range Interpretation Comments ANTI-NUCLEAR ANTIBODY ([place]) (BEAKER) Negative Negative (test code = 418) Test performed by IFA method.CBC W/PLT COUNT & AUTO [id number] 11:28:03 Test Item Value Reference Range Interpretation Comments WHITE BLOOD CELL COUNT (BEAKER) 17.3 K/ L 3.5-10.5 H (test code = 775) RED BLOOD CELL COUNT (BEAKER) 1.81 M/ L 3.93-5.22 L (test code = 761) HEMOGLOBIN (BEAKER) (test code = 5.5 GM/DL 11.2-15.7 LL 410) HEMATOCRIT (BEAKER) (test code = 16.3 % 34.1-44.9 L 411) MEAN CORPUSCULAR VOLUME (BEAKER) 90 fL 79-95 (test code = 753) MEAN CORPUSCULAR HEMOGLOBIN 30.4 pg 25.6-32.2 (BEAKER) (test code = 751) MEAN CORPUSCULAR HEMOGLOBIN CONC 33.7 GM/DL 32.2-35.5 (BEAKER) (test code = 752) RED CELL DISTRIBUTION WIDTH 18.8 % 11.7-14.4 H (BEAKER) (test code = 412) PLATELET COUNT (BEAKER) (test code 93 K/CU MM 150-450 L = 756) MEAN PLATELET VOLUME (BEAKER) 12.6 fL 9.4-12.3 H (test code = 754) NUCLEATED RED BLOOD CELLS (BEAKER) 5 /100 WBC 0-0 H (test code = 413) [id number] 10:49:34 Test Item Value Reference Range Interpretation Comments FERRITIN (BEAKER) (test code = 8700.64 ng/mL 5.00-275.00 H 361) Security Patrol Officer ID - ADMINOperator ID - ADMINBASIC METABOLIC [id number] 10:20:40 Test Item Value Reference Range Interpretation Comments SODIUM (BEAKER) 136 meq/L 136-145 (test code = 381) POTASSIUM 4.7 meq/L 3.5-5.1 (BEAKER) (test code = 379) CHLORIDE (BEAKER) 105 meq/L 98-107 (test code = 382) CO2 (BEAKER) 22 meq/L 22-29 (test code = 355) BLOOD UREA 53 mg/dL 7-21 H NITROGEN (BEAKER) (test code = 354) CREATININE 1.97 mg/dL 0.57-1.25 H (BEAKER) (test code = 358) GLUCOSE RANDOM 197 mg/dL 70-105 H (BEAKER) (test code = 652) CALCIUM (BEAKER) 8.6 mg/dL 8.4-10.2 (test code = 697) EGFR (BEAKER) 31 Interpretatio n of eGFR (test code = [...] not appl icable for dialysis patien ts Security Patrol Officer ID - ADMINSpecimen moderately icteric(CELLAVISION MANUAL DIFF) 2022-12-22 07:26:30 Test Item Value Reference Range Interpretation Comments NEUTROPHILS - REL 65 % (CELLAVISION)(BEAKER) (test code = 2816) LYMPHOCYTES - REL 12 % (CELLAVISION)(BEAKER) (test code = 2817) MONOCYTES - REL 14 % (CELLAVISION)(BEAKER) (test code = 2818) METAMYELOCYTES - REL 2 % 0-0 H (CELLAVISION)(BEAKER) (test code = 2821) BANDS - REL (CELLAVISION)(BEAKER) 5 % 0-10 (test code = 2826) ATYPICAL LYMPHOCYTES - REL 1 % 0-0 H (CELLAVISION)(BEAKER) (test code = 2829) NEUTROPHILS - ABS 11.25 K/ul 1.56-6.13 H (CELLAVISION)(BEAKER) (test code = 2830) LYMPHOCYTES - ABS 2.08 K/ul 1.18-3.74 (CELLAVISION)(BEAKER) (test code = 2831) MONOCYTES - ABS 2.42 K/uL 0.24-0.36 H (CELLAVISION)(BEAKER) (test code = 2832) METAMYELOCYTES - ABS 0.35 K/uL 0.00-0.00 H (CELLAVISION)(BEAKER) (test code = 2836) BANDS - ABS (CELLAVISION)(BEAKER) 0.87 K/uL 0.00-0.80 H (test code = 2840) ATYPICAL LYMPHOCYTES - ABS 0.17 K/uL 0.00-0.00 H (CELLAVISION)(BEAKER) (test code = 2858) TOTAL COUNTED (BEAKER) (test code 100 = 1351) MANUAL NRBC PER 100 CELLS 7 /100 WBC 0-0 H (BEAKER) (test code = 1353) PLT MORPHOLOGY (BEAKER) (test Normal code = 486) SMUDGE CELLS (BEAKER) (test code Present = 1371) POLYCHROMATOPHILLIC RBCS(BEAKER) 3+ many (test code = 478) ANISOCYTOSIS (BEAKER) (test code 2+ moderate = 961) MICROCYTES (BEAKER) (test code = 2+ moderate 965) POIKILOCYTES (BEAKER) (test code 2+ moderate = 966) OVALOCYTES (BEAKER) (test code = 2+ moderate 477) STOMATOCYTES (BEAKER) (test code 1+ few = 479) BASOPHILIC STIPPLING (BEAKER) Present (test code = 473) ARTIFACT (CELLAVISION)(BEAKER) Present (test code = 3432) PLATELET CONCENTRATION Decreased (CELLAVISION)(BEAKER) (test code = 3438) Security Patrol Officer ID - [id number] ID - Kevin Dato-onUser comments: Slide comments: [id number] 07:13:25 Test Item Value Reference Range Interpretation Comments AMMONIA (BEAKER) (test code = 348) 38 mol/L 18-72 Security Patrol Officer ID - ADMINBASIC METABOLIC [id number] 06:29:39 Test Item Value Reference Range Interpretation Comments SODIUM (BEAKER) 135 meq/L 136-145 L (test code = 381) POTASSIUM 4.6 meq/L 3.5-5.1 (BEAKER) (test code = 379) CHLORIDE (BEAKER) 105 meq/L 98-107 (test code = 382) CO2 (BEAKER) 21 meq/L 22-29 L (test code = 355) BLOOD UREA 49 mg/dL 7-21 H NITROGEN (BEAKER) (test code = 354) CREATININE 1.87 mg/dL 0.57-1.25 H (BEAKER) (test code = 358) GLUCOSE RANDOM 183 mg/dL 70-105 H (BEAKER) (test code = 652) CALCIUM (BEAKER) 8.6 mg/dL 8.4-10.2 (test code = 697) EGFR (BEAKER) 33 Interpretatio n of eGFR (test code = [...] not appl icable for dialysis patien ts Security Patrol Officer ID - NEELAM WOperator ID - ADMINSpecimen moderately ictericRAD, CHEST, 1 VIEW, NON [id number] 06:13:00Reason for exam:->follow upShould this be performed at the bedside?->Yes [facility] 1975 Sex: FFINAL REPORT CLINICAL HISTORY: follow up TECHNIQUE: 1 view of the chest. COMPARISON: 12/21/2022 IMPRESSION: The supporting lines and tubes are similar appearing. Pulmonary vascularcongestion is again seen. Right infrahilar consolidation/atelectasis is unchanged. Subpulmonic pleural effusions cannot be excluded. The cardiomediastinal silhouette is magnified by technique. Signed: Tarun Dunn Verified Date/Time: 12/22/2022 06:13:15 [id number] 05:55:43 Test Item Value Reference Range Interpretation Comments HAPTOGLOBIN (BEAKER) (test code = < mg/dL 14-258 L 366) Security Patrol Officer ID - ADMINVANCOMYCIN LEVEL, [id number] 05:44:16 Test Item Value Reference Range Interpretation Comments VANCOMYCIN RANDOM (BEAKER) (test 19.2 ug/mL code = 523) Reference Range: No NormalsOperator ID - ADMINPOCT-GLUCOSE [id number] 05:37:04 Test Item Value Reference Range Interpretation Comments POC-GLUCOSE METER 156 mg/dL 70-110 H : TESTED A T [facility] 6720 (BEAKER) (test code = [place], 1538) [id number]: Security Patrol Officer/Techni waylon ID = [id number] for SUDARSHAN ALLEN HEPATIC FUNCTION [id number] 05:07:16 Test Item Value Reference Range Interpretation Comments TOTAL PROTEIN (BEAKER) (test code 6.3 gm/dL 6.0-8.3 = 770) ALBUMIN (BEAKER) (test code = 2.5 g/dL 3.5-5.0 L 1145) BILIRUBIN TOTAL (BEAKER) (test 10.2 mg/dL 0.2-1.2 H code = 377) BILIRUBIN DIRECT (BEAKER) (test 7.4 mg/dL 0.1-0.5 H code = 706) ALKALINE PHOSPHATASE (BEAKER) 383 U/L 40-150 H (test code = 346) AST (SGOT) (BEAKER) (test code = 263 U/L 5-34 H 353) ALT (SGPT) (BEAKER) (test code = 405 U/L 6-55 H 347) Security Patrol Officer ID - NEELAM WSpecimen moderately ictericLACTATE DEHYDROGENASE (LDH) 2022-12-22 05:07:16 Test Item Value Reference Range Interpretation Comments LACTATE DEHYDROGENASE (BEAKER) (test 1547 U/L 125-220 H code = 635) Security Patrol Officer ID - NEELAM [id number] 05:07:15 Test Item Value Reference Range Interpretation Comments PHOSPHORUS (BEAKER) (test code = 2.9 mg/dL 2.3-4.7 604) Security Patrol Officer ID - NEELAM [id number] 05:07:14 Test Item Value Reference Range Interpretation Comments MAGNESIUM (BEAKER) (test code = 2.2 mg/dL 1.6-2.6 627) Security Patrol Officer ID - NEELAM WRETICULOCYTE [id number] 04:55:54 Test Item Value Reference Range Interpretation Comments RETICULOCYTE COUNT PCT (BEAKER) (test 6.6 % 0.5-1.7 H code = 575) Security Patrol Officer ID - [id number] ID - [id number] 04:32:59 Test Item Value Reference Range Interpretation Comments FIBRINOGEN LEVEL (BEAKER) (test 340 mg/dl 225-434 code = 658) [id number] 04:32:59 Test Item Value Reference Range Interpretation Comments PROTIME (BEAKER) (test code = 15.2 seconds 11.9-14.2 H 759) INR (BEAKER) (test code = 370) 1.28 <=5.90 PARTIAL THROMBOPLASTIN TIME 23.5 seconds 22.5-36.0 (BEAKER) (test code = 760) RECOMMENDED COUMADIN/WARFARIN INR THERAPY RANGESSTANDARD DOSE: 2.0 - 3.0 Includes: PROPHYLAXIS for venous thrombosis, systemic embolization; TREATMENT for venous thrombosis and/or pulmonary embolus.HIGH RISK: Target INR is 2.5-3.5 for patients with mechanical heart valves.BLOOD GAS, [id number] 04:11:49 Test Item Value Reference Range Interpretation Comments PH ARTERIAL (BEAKER) (test code = 7.44 7.35-7.45 383) PCO2 ARTERIAL (BEAKER) (test code 37 mm Hg 35-45 = 384) PO2 ARTERIAL (BEAKER) (test code = 123 mm Hg 80-90 H 385) O2 SATURATION ARTERIAL (BEAKER) 98.6 % 96.0-97.0 H (test code = 386) HCO3 ARTERIAL (BEAKER) (test code 25 mmol/L 21-29 = 388) BASE EXCESS ARTERIAL (BEAKER) 0.7 mmol/L -2.0-3.0 (test code = 387) PATIENT TEMPERATURE (BEAKER) (test 36.8 code = 1818) FIO2 (BEAKER) (test code = 1819) 30.0 CALCIUM, [id number] 04:11:07 Test Item Value Reference Range Interpretation Comments CALCIUM IONIZED (BEAKER) (test 1.11 mmol/L 1.12-1.27 L code = 698) PH, BLOOD (BEAKER) (test code = 7.44 1810) BLOOD [id number] 01:00:29 Test Item Value Reference Range Interpretation Comments CULTURE (BEAKER) (test No growth in 5 days code = 1095) BASIC METABOLIC [id number] 00:48:35 Test Item Value Reference Range Interpretation Comments SODIUM (BEAKER) 135 meq/L 136-145 L (test code = 381) POTASSIUM 4.8 meq/L 3.5-5.1 (BEAKER) (test code = 379) CHLORIDE (BEAKER) 104 meq/L 98-107 (test code = 382) CO2 (BEAKER) 23 meq/L 22-29 (test code = 355) BLOOD UREA 43 mg/dL 7-21 H NITROGEN (BEAKER) (test code = 354) CREATININE 1.71 mg/dL 0.57-1.25 H (BEAKER) (test code = 358) GLUCOSE RANDOM 192 mg/dL 70-105 H (BEAKER) (test code = 652) CALCIUM (BEAKER) 8.8 mg/dL 8.4-10.2 (test code = 697) EGFR (BEAKER) 36 Interpretatio n of eGFR (test code = [...] not appl icable for dialysis patien ts Security Patrol Officer ID - ADMINSpecimen moderately ictericPOCT-GLUCOSE [id number] 23:52:46 Test Item Value Reference Range Interpretation Comments POC-GLUCOSE METER 186 mg/dL 70-110 H : [facility] (BEAKER) (test code [facility], = 1538) [id number]: Security Patrol Officer/Techni waylon ID = [id number] for SUGU , SHEENAMOL HEPATIC FUNCTION [id number] 20:46:11 Test Item Value Reference Range Interpretation Comments TOTAL PROTEIN (BEAKER) (test code 6.6 gm/dL 6.0-8.3 = 770) ALBUMIN (BEAKER) (test code = 2.6 g/dL 3.5-5.0 L 1145) BILIRUBIN TOTAL (BEAKER) (test 12.9 mg/dL 0.2-1.2 H code = 377) BILIRUBIN DIRECT (BEAKER) (test 8.8 mg/dL 0.1-0.5 H code = 706) ALKALINE PHOSPHATASE (BEAKER) 391 U/L 40-150 H (test code = 346) AST (SGOT) (BEAKER) (test code = 307 U/L 5-34 H 353) ALT (SGPT) (BEAKER) (test code = 462 U/L 6-55 H 347) Security Patrol Officer ID - dbSpecimen moderately [id number] 20:46:10 Test Item Value Reference Range Interpretation Comments PHOSPHORUS (BEAKER) (test code = 3.2 mg/dL 2.3-4.7 604) Security Patrol Officer ID - dbBASIC METABOLIC [id number] 20:46:10 Test Item Value Reference Range Interpretation Comments SODIUM (BEAKER) 134 meq/L 136-145 L (test code = 381) POTASSIUM 4.7 meq/L 3.5-5.1 (BEAKER) (test code = 379) CHLORIDE (BEAKER) 102 meq/L 98-107 (test code = 382) CO2 (BEAKER) 22 meq/L 22-29 (test code = 355) BLOOD UREA 42 mg/dL 7-21 H NITROGEN (BEAKER) (test code = 354) CREATININE 1.66 mg/dL 0.57-1.25 H (BEAKER) (test code = 358) GLUCOSE RANDOM 215 mg/dL 70-105 H (BEAKER) (test code = 652) CALCIUM (BEAKER) 8.4 mg/dL 8.4-10.2 (test code = 697) EGFR (BEAKER) 38 Interpretatio n of eGFR (test code = mL/min/1.73 values Stage De scription 1092) sq m Result G1 Norm al or high >=90 G2 Mildly decreased 60-89 [...] not appl icable for dialysis patien ts Security Patrol Officer ID - dbSpecimen moderately [id number] 20:46:09 Test Item Value Reference Range Interpretation Comments MAGNESIUM (BEAKER) (test code = 2.2 mg/dL 1.6-2.6 627) Security Patrol Officer ID - dbCALCIUM, [id number] 20:35:12 Test Item Value Reference Range Interpretation Comments CALCIUM IONIZED (BEAKER) (test 1.08 mmol/L 1.12-1.27 L code = 698) PH, BLOOD (BEAKER) (test code = 7.45 1810) [id number] 20:35:05 Test Item Value Reference Range Interpretation Comments FIBRINOGEN LEVEL (BEAKER) (test 366 mg/dl 225-434 code = 658) CBC (HEMOGRAM ONLY)2022-12-21 20:29:59 Test Item Value Reference Range Interpretation Comments WHITE BLOOD CELL COUNT (BEAKER) 14.1 K/ L 3.5-10.5 H (test code = 775) RED BLOOD CELL COUNT (BEAKER) 1.76 M/ L 3.93-5.22 L (test code = 761) HEMOGLOBIN (BEAKER) (test code = 5.4 GM/DL 11.2-15.7 LL 410) HEMATOCRIT (BEAKER) (test code = 15.9 % 34.1-44.9 L 411) MEAN CORPUSCULAR VOLUME (BEAKER) 90 fL 79-95 (test code = 753) MEAN CORPUSCULAR HEMOGLOBIN 30.7 pg 25.6-32.2 (BEAKER) (test code = 751) MEAN CORPUSCULAR HEMOGLOBIN CONC 34.0 GM/DL 32.2-35.5 (BEAKER) (test code = 752) RED CELL DISTRIBUTION WIDTH 18.6 % 11.7-14.4 H (BEAKER) (test code = 412) PLATELET COUNT (BEAKER) (test code 83 K/CU MM 150-450 L = 756) MEAN PLATELET VOLUME (BEAKER) 12.8 fL 9.4-12.3 H (test code = 754) NUCLEATED RED BLOOD CELLS (BEAKER) 5 /100 WBC 0-0 H (test code = 413) BASIC METABOLIC [id number] 18:13:58 Test Item Value Reference Range Interpretation Comments SODIUM (BEAKER) 134 meq/L 136-145 L (test code = 381) POTASSIUM 4.8 meq/L 3.5-5.1 (BEAKER) (test code = 379) CHLORIDE (BEAKER) 103 meq/L 98-107 (test code = 382) CO2 (BEAKER) 23 meq/L 22-29 (test code = 355) BLOOD UREA 41 mg/dL 7-21 H NITROGEN (BEAKER) (test code = 354) CREATININE 1.58 mg/dL 0.57-1.25 H (BEAKER) (test code = 358) GLUCOSE RANDOM 219 mg/dL 70-105 H (BEAKER) (test code = 652) CALCIUM (BEAKER) 8.4 mg/dL 8.4-10.2 (test code = 697) EGFR (BEAKER) 40 Interpretatio n of eGFR (test code = [...] not appl icable for dialysis patien ts Security Patrol Officer ID - MARCOSpecimen moderately ictericPOCT-GLUCOSE [id number] 18:09:27 Test Item Value Reference Range Interpretation Comments POC-GLUCOSE METER 209 mg/dL 70-110 H : TESTED A T [facility] 67[facility] (BEAKER) (test code = [place], 1538) 17[address]: Security Patrol Officer/Techni waylon ID = [id number] for [facility] ([facility]), saran BLOOD GAS, [id number] 16:22:59 Test Item Value Reference Range Interpretation Comments PH ARTERIAL (BEAKER) (test code = 7.43 7.35-7.45 383) PCO2 ARTERIAL (BEAKER) (test code 40 mm Hg 35-45 = 384) PO2 ARTERIAL (BEAKER) (test code = 162 mm Hg 80-90 H 385) O2 SATURATION ARTERIAL (BEAKER) 99.1 % 96.0-97.0 H (test code = 386) HCO3 ARTERIAL (BEAKER) (test code 26 mmol/L 21-29 = 388) BASE EXCESS ARTERIAL (BEAKER) 1.7 mmol/L -2.0-3.0 (test code = 387) PATIENT TEMPERATURE (BEAKER) (test 37.5 code = 1818) FIO2 (BEAKER) (test code = 1819) 30.0 [id number] 15:01:27 Test Item Value Reference Range Interpretation Comments AMMONIA (BEAKER) (test code = 348) 47 mol/L 18-72 Security Patrol Officer ID - MARCOOperator ID - [id number] 13:02:35 Test Item Value Reference Range Interpretation Comments PHOSPHORUS (BEAKER) (test code = 3.2 mg/dL 2.3-4.7 604) Security Patrol Officer ID - ADMINBASIC METABOLIC [id number] 13:02:35 Test Item Value Reference Range Interpretation Comments SODIUM (BEAKER) 133 meq/L 136-145 L (test code = 381) POTASSIUM 4.7 meq/L 3.5-5.1 (BEAKER) (test code = 379) CHLORIDE (BEAKER) 102 meq/L 98-107 (test code = 382) CO2 (BEAKER) 23 meq/L 22-29 (test code = 355) BLOOD UREA 40 mg/dL 7-21 H NITROGEN (BEAKER) (test code = 354) CREATININE 1.60 mg/dL 0.57-1.25 H (BEAKER) (test code = 358) GLUCOSE RANDOM 197 mg/dL 70-105 H (BEAKER) (test code = 652) CALCIUM (BEAKER) 8.0 mg/dL 8.4-10.2 L (test code = 697) EGFR (BEAKER) 39 Interpretatio n of eGFR (test code = [...] not appl icable for dialysis patien ts Security Patrol Officer ID - ADMINSpecimen markedly [id number] 13:02:34 Test Item Value Reference Range Interpretation Comments MAGNESIUM (BEAKER) (test code = 2.1 mg/dL 1.6-2.6 627) Security Patrol Officer ID - ADMINCBC (HEMOGRAM ONLY)2022-12-21 12:37:39 Test Item Value Reference Range Interpretation Comments WHITE BLOOD CELL COUNT (BEAKER) 10.4 K/ L 3.5-10.5 (test code = 775) RED BLOOD CELL COUNT (BEAKER) 1.68 M/ L 3.93-5.22 L (test code = 761) HEMOGLOBIN (BEAKER) (test code = 5.1 GM/DL 11.2-15.7 LL 410) HEMATOCRIT (BEAKER) (test code = 15.0 % 34.1-44.9 L 411) MEAN CORPUSCULAR VOLUME (BEAKER) 89 fL 79-95 (test code = 753) MEAN CORPUSCULAR HEMOGLOBIN 30.4 pg 25.6-32.2 (BEAKER) (test code = 751) MEAN CORPUSCULAR HEMOGLOBIN CONC 34.0 GM/DL 32.2-35.5 (BEAKER) (test code = 752) RED CELL DISTRIBUTION WIDTH 18.8 % 11.7-14.4 H (BEAKER) (test code = 412) PLATELET COUNT (BEAKER) (test code 64 K/CU MM 150-450 L = 756) MEAN PLATELET VOLUME (BEAKER) 12.7 fL 9.4-12.3 H (test code = 754) NUCLEATED RED BLOOD CELLS (BEAKER) 7 /100 WBC 0-0 H (test code = 413) CALCIUM, [id number] 12:20:00 Test Item Value Reference Range Interpretation Comments CALCIUM IONIZED (BEAKER) (test 1.07 mmol/L 1.12-1.27 L code = 698) PH, BLOOD (BEAKER) (test code = 7.45 1810) DOUBLE-STRANDED DNA (DSDNA) [id number] 12:18:23 Test Item Value Reference Range Interpretation Comments ANTI-DNA DS (BEAKER) (test code = Negative Negative 1055) RAD, CHEST, 1 VIEW, NON [id number] 11:24:00Reason for exam:->resp failureShould this be performed at the bedside?->Yes [facility]ED[facility]ATO : 1975 Sex: FFINAL REPORT CLINICAL HISTORY: resp failure TECHNIQUE: 1 view of the chest. COMPARISON: 12/20/2022 IMPRESSION: The supporting lines and tubes are similar appearing. Pulmonary vascular congestion is again seen. Right infrahilar consolidation/atelectasis is unchanged. Subpulmonic pleural effusions cannot be excluded. The cardiomediastinal silhouette is magnified by technique. Signed: Tarun Lopez MDReport Verified Date/Time: 12/21/2022 11:24:15 Reading Location: [address] Reading Room BASIC METABOLIC [id number] 09:24:11 Test Item Value Reference Range Interpretation Comments SODIUM (BEAKER) 133 meq/L 136-145 L (test code = 381) POTASSIUM 4.6 meq/L 3.5-5.1 (BEAKER) (test code = 379) CHLORIDE (BEAKER) 102 meq/L 98-107 (test code = 382) CO2 (BEAKER) 23 meq/L 22-29 (test code = 355) BLOOD UREA 39 mg/dL 7-21 H NITROGEN (BEAKER) (test code = 354) CREATININE 1.53 mg/dL 0.57-1.25 H (BEAKER) (test code = 358) GLUCOSE RANDOM 171 mg/dL 70-105 H (BEAKER) (test code = 652) CALCIUM (BEAKER) 8.0 mg/dL 8.4-10.2 L (test code = 697) EGFR (BEAKER) 41 Interpretatio n of eGFR (test code = mL/min/1.73 values Stage De scription 1092) sq m Result G1 Veronica l or high >=90 G2 Mildly decreased 60-89 G3a Mildl y to moderately 45-5 9 G3b Moderately to s everely 30-44 G4 Sever ly decreased 15-29 G5 Kidney failure <15Repo rted eGFR is based on the CKD-EPI 2020 equation t hat does not use a race coefficientEsti mated GFR is not as accur ate as Creatinine Katelyn rachell in predicting glom erular filtration rate . Estimated GFR is not appl icable for dialysis patien ts Security Patrol Officer ID - ADMINSpecimen markedly icteric(CELLAVISION MANUAL DIFF)2022-12-21 09:01:38 Test Item Value Reference Range Interpretation Comments NEUTROPHILS - REL 79 % (CELLAVISION)(BEAKER) (test code = 2816) LYMPHOCYTES - REL 17 % (CELLAVISION)(BEAKER) (test code = 2817) MONOCYTES - REL 4 % (CELLAVISION)(BEAKER) (test code = 2818) NEUTROPHILS - ABS 9.01 K/ul 1.56-6.13 H (CELLAVISION)(BEAKER) (test code = 2830) LYMPHOCYTES - ABS 1.94 K/ul 1.18-3.74 (CELLAVISION)(BEAKER) (test code = 2831) MONOCYTES - ABS 0.46 K/uL 0.24-0.36 H (CELLAVISION)(BEAKER) (test code = 2832) TOTAL COUNTED (BEAKER) (test code 100 = 1351) MANUAL NRBC PER 100 CELLS 15 /100 WBC 0-0 H (BEAKER) (test code = 1353) PLT MORPHOLOGY (BEAKER) (test Normal code = 486) SMUDGE CELLS (BEAKER) (test code Present = 1371) TOXIC GRANULATION (BEAKER) (test Present code = 771) MICROCYTES (BEAKER) (test code = 1+ 965) ROULEAUX (BEAKER) (test code = 1+ few 763) SPHEROCYTES (BEAKER) (test code = 1+ few 768) OVALOCYTES (BEAKER) (test code = 1+ 477) BASOPHILIC STIPPLING (BEAKER) Present (test code = 473) ARTIFACT (CELLAVISION)(BEAKER) Present (test code = 3432) PLATELET CONCENTRATION Decreased (CELLAVISION)(BEAKER) (test code = 3438) Security Patrol Officer ID - [id number] ID - Stella comments: Slide comments: Security Patrol Officer DORIAN - Stella comments: Slide comments:CBC W/PLT COUNT & AUTO DIFFERENTIAL 2022-12-21 09:01:36 Test Item Value Reference Range Interpretation Comments WHITE BLOOD CELL COUNT (BEAKER) 11.4 K/ L 3.5-10.5 H (test code = 775) RED BLOOD CELL COUNT (BEAKER) 1.69 M/ L 3.93-5.22 L (test code = 761) HEMOGLOBIN (BEAKER) (test code = 5.2 GM/DL 11.2-15.7 LL 410) HEMATOCRIT (BEAKER) (test code = 14.8 % 34.1-44.9 L 411) MEAN CORPUSCULAR VOLUME (BEAKER) 88 fL 79-95 (test code = 753) MEAN CORPUSCULAR HEMOGLOBIN 30.8 pg 25.6-32.2 (BEAKER) (test code = 751) MEAN CORPUSCULAR HEMOGLOBIN CONC 35.1 GM/DL 32.2-35.5 (BEAKER) (test code = 752) RED CELL DISTRIBUTION WIDTH 18.8 % 11.7-14.4 H (BEAKER) (test code = 412) PLATELET COUNT (BEAKER) (test code 62 K/CU MM 150-450 L = 756) MEAN PLATELET VOLUME (BEAKER) 12.3 fL 9.4-12.3 (test code = 754) NUCLEATED RED BLOOD CELLS (BEAKER) 6 /100 WBC 0-0 H (test code = 413) [id number] 04:36:51 Test Item Value Reference Range Interpretation Comments HAPTOGLOBIN (BEAKER) (test code = < mg/dL 14-258 L 366) Security Patrol Officer ID - [id number] 04:34:17 Test Item Value Reference Range Interpretation Comments FIBRINOGEN LEVEL (BEAKER) (test 390 mg/dl 225-434 code = 658) [id number] 04:25:15 Test Item Value Reference Range Interpretation Comments PROTIME (BEAKER) (test code = 15.2 seconds 11.9-14.2 H 759) INR (BEAKER) (test code = 370) 1.27 <=5.90 PARTIAL THROMBOPLASTIN TIME 24.6 seconds 22.5-36.0 (BEAKER) (test code = 760) RECOMMENDED COUMADIN/WARFARIN INR THERAPY RANGESSTANDARD DOSE: 2.0 - 3.0 Includes: PROPHYLAXIS for venous thrombosis, systemic embolization; TREATMENT for venous thrombosis and/or pulmonary embolus.HIGH RISK: Target INR is 2.5-3.5 for patients with mechanical heart valves.RETICULOCYTE [id number] 04:22:20 Test Item Value Reference Range Interpretation Comments RETICULOCYTE COUNT PCT (BEAKER) (test 4.6 % 0.5-1.7 H code = 575) Security Patrol Officer ID - [id number] ID - [id number] DEHYDROGENASE (LDH)2022-12-21 04:21:37 Test Item Value Reference Range Interpretation Comments LACTATE DEHYDROGENASE (BEAKER) (test 1766 U/L 125-220 H code = 635) Security Patrol Officer ID - ADMINHEPATIC FUNCTION [id number] 04:21:36 Test Item Value Reference Range Interpretation Comments TOTAL PROTEIN (BEAKER) (test code 6.3 gm/dL 6.0-8.3 = 770) ALBUMIN (BEAKER) (test code = 2.5 g/dL 3.5-5.0 L 1145) BILIRUBIN TOTAL (BEAKER) (test 16.7 mg/dL 0.2-1.2 H code = 377) BILIRUBIN DIRECT (BEAKER) (test 10.6 mg/dL 0.1-0.5 H code = 706) ALKALINE PHOSPHATASE (BEAKER) 385 U/L 40-150 H (test code = 346) AST (SGOT) (BEAKER) (test code = 387 U/L 5-34 H 353) ALT (SGPT) (BEAKER) (test code = 527 U/L 6-55 H 347) Security Patrol Officer ID - ADMINSpecimen markedly [id number] 04:21:35 Test Item Value Reference Range Interpretation Comments PHOSPHORUS (BEAKER) (test code = 2.5 mg/dL 2.3-4.7 604) Security Patrol Officer ID - ADMINBASIC METABOLIC [id number] 04:21:35 Test Item Value Reference Range Interpretation Comments SODIUM (BEAKER) 134 meq/L 136-145 L (test code = 381) POTASSIUM 4.6 meq/L 3.5-5.1 (BEAKER) (test code = 379) CHLORIDE (BEAKER) 103 meq/L 98-107 (test code = 382) CO2 (BEAKER) 22 meq/L 22-29 (test code = 355) BLOOD UREA 36 mg/dL 7-21 H NITROGEN (BEAKER) (test code = 354) CREATININE 1.43 mg/dL 0.57-1.25 H (BEAKER) (test code = 358) GLUCOSE RANDOM 183 mg/dL 70-105 H (BEAKER) (test code = 652) CALCIUM (BEAKER) 8.2 mg/dL 8.4-10.2 L (test code = 697) EGFR (BEAKER) 45 Interpretatio n of eGFR (test code = mL/min/1.73 values Stage De scription 1092) sq m Result G1 Norm al or high >=90 G2 Mildly decreased 60-89 [...] not appl icable for dialysis patien ts Security Patrol Officer ID - ADMINSpecimen markedly [id number] 04:21:34 Test Item Value Reference Range Interpretation Comments MAGNESIUM (BEAKER) (test code = 2.3 mg/dL 1.6-2.6 627) Security Patrol Officer ID - ADMINBLOOD GAS, [id number] 04:13:16 Test Item Value Reference Range Interpretation Comments PH ARTERIAL (BEAKER) (test code = 7.43 7.35-7.45 383) PCO2 ARTERIAL (BEAKER) (test code 40 mm Hg 35-45 = 384) PO2 ARTERIAL (BEAKER) (test code = 117 mm Hg 80-90 H 385) O2 SATURATION ARTERIAL (BEAKER) 98.4 % 96.0-97.0 H (test code = 386) HCO3 ARTERIAL (BEAKER) (test code 26 mmol/L 21-29 = 388) BASE EXCESS ARTERIAL (BEAKER) 1.0 mmol/L -2.0-3.0 (test code = 387) PATIENT TEMPERATURE (BEAKER) (test 36.8 code = 1818) FIO2 (BEAKER) (test code = 1819) 30.0 CALCIUM, [id number] 04:13:10 Test Item Value Reference Range Interpretation Comments CALCIUM IONIZED (BEAKER) (test 1.11 mmol/L 1.12-1.27 L code = 698) PH, BLOOD (BEAKER) (test code = 7.42 1810) POCT-GLUCOSE [id number] 00:14:48 Test Item Value Reference Range Interpretation Comments POC-GLUCOSE METER 173 mg/dL 70-110 H : TESTED A T [facility] 6720 (BEAKER) (test code = [facility], 1538) [address]: Security Patrol Officer/Techni wyalon ID = [id number] for SUDARSHAN ALLEN BLOOD GAS, [id number] 00:09:43 Test Item Value Reference Range Interpretation Comments PH ARTERIAL (BEAKER) (test code = 7.43 7.35-7.45 383) PCO2 ARTERIAL (BEAKER) (test code 41 mm Hg 35-45 = 384) PO2 ARTERIAL (BEAKER) (test code = 116 mm Hg 80-90 H 385) O2 SATURATION ARTERIAL (BEAKER) 98.3 % 96.0-97.0 H (test code = 386) HCO3 ARTERIAL (BEAKER) (test code 26 mmol/L 21-29 = 388) BASE EXCESS ARTERIAL (BEAKER) 1.6 mmol/L -2.0-3.0 (test code = 387) PATIENT TEMPERATURE (BEAKER) (test 37.0 code = 1818) FIO2 (BEAKER) (test code = 1819) 30.0 POCT-GLUCOSE [id number] 22:03:54 Test Item Value Reference Range Interpretation Comments POC-GLUCOSE METER 170 mg/dL 70-110 H : TESTED A T [facility] 6720 (BEAKER) (test code = [facility], 1538) [id number]: Security Patrol Officer/Techni waylon ID = [id number] for SUDARSHAN ALLEN CBC (HEMOGRAM ONLY)2022-12-20 21:31:41 Test Item Value Reference Range Interpretation Comments WHITE BLOOD CELL COUNT (BEAKER) 7.9 K/ L 3.5-10.5 (test code = 775) RED BLOOD CELL COUNT (BEAKER) 1.63 M/ L 3.93-5.22 L (test code = 761) HEMOGLOBIN (BEAKER) (test code = 5.0 GM/DL 11.2-15.7 LL 410) HEMATOCRIT (BEAKER) (test code = 13.7 % 34.1-44.9 L 411) MEAN CORPUSCULAR VOLUME (BEAKER) 84 fL 79-95 (test code = 753) MEAN CORPUSCULAR HEMOGLOBIN 30.1 pg 25.6-32.2 (BEAKER) (test code = 751) MEAN CORPUSCULAR HEMOGLOBIN CONC 35.8 GM/DL 32.2-35.5 H (BEAKER) (test code = 752) RED CELL DISTRIBUTION WIDTH 18.8 % 11.7-14.4 H (BEAKER) (test code = 412) PLATELET COUNT (BEAKER) (test code 44 K/CU MM 150-450 L = 756) MEAN PLATELET VOLUME (BEAKER) 12.7 fL 9.4-12.3 H (test code = 754) NUCLEATED RED BLOOD CELLS (BEAKER) 6 /100 WBC 0-0 H (test code = 413) HEPATIC FUNCTION [id number] 21:05:07 Test Item Value Reference Range Interpretation Comments TOTAL PROTEIN (BEAKER) (test code 6.2 gm/dL 6.0-8.3 = 770) ALBUMIN (BEAKER) (test code = 2.5 g/dL 3.5-5.0 L 1145) BILIRUBIN TOTAL (BEAKER) (test 20.0 mg/dL 0.2-1.2 H code = 377) BILIRUBIN DIRECT (BEAKER) (test 12.4 mg/dL 0.1-0.5 H code = 706) ALKALINE PHOSPHATASE (BEAKER) 401 U/L 40-150 H (test code = 346) AST (SGOT) (BEAKER) (test code = 442 U/L 5-34 H 353) ALT (SGPT) (BEAKER) (test code = 594 U/L 6-55 H 347) Security Patrol Officer ID - ADMINSpecimen markedly [id number] 21:05:06 Test Item Value Reference Range Interpretation Comments PHOSPHORUS (BEAKER) (test code = 2.6 mg/dL 2.3-4.7 604) Security Patrol Officer ID - ADMINBASIC METABOLIC [id number] 21:05:06 Test Item Value Reference Range Interpretation Comments SODIUM (BEAKER) 133 meq/L 136-145 L (test code = 381) POTASSIUM 4.5 meq/L 3.5-5.1 (BEAKER) (test code = 379) CHLORIDE (BEAKER) 102 meq/L 98-107 (test code = 382) CO2 (BEAKER) 21 meq/L 22-29 L (test code = 355) BLOOD UREA 33 mg/dL 7-21 H NITROGEN (BEAKER) (test code = 354) CREATININE 1.27 mg/dL 0.57-1.25 H (BEAKER) (test code = 358) GLUCOSE RANDOM 170 mg/dL 70-105 H (BEAKER) (test code = 652) CALCIUM (BEAKER) 8.1 mg/dL 8.4-10.2 L (test code = 697) EGFR (BEAKER) 52 Interpretatio n of eGFR (test code = [...] not appl icable for dialysis patien ts Security Patrol Officer ID - ADMINSpecimen markedly [id number] 21:05:05 Test Item Value Reference Range Interpretation Comments MAGNESIUM (BEAKER) (test code = 2.2 mg/dL 1.6-2.6 627) Security Patrol Officer ID - ADMINCBC (HEMOGRAM ONLY)2022-12-20 20:53:12 Test Item Value Reference Range Interpretation Comments WHITE BLOOD CELL COUNT (BEAKER) 7.5 K/ L 3.5-10.5 (test code = 775) RED BLOOD CELL COUNT (BEAKER) 1.61 M/ L 3.93-5.22 L (test code = 761) HEMOGLOBIN (BEAKER) (test code = 4.9 GM/DL 11.2-15.7 LL 410) HEMATOCRIT (BEAKER) (test code = 13.9 % 34.1-44.9 L 411) MEAN CORPUSCULAR VOLUME (BEAKER) 86 fL 79-95 (test code = 753) MEAN CORPUSCULAR HEMOGLOBIN 30.4 pg 25.6-32.2 (BEAKER) (test code = 751) MEAN CORPUSCULAR HEMOGLOBIN CONC 35.3 GM/DL 32.2-35.5 (BEAKER) (test code = 752) RED CELL DISTRIBUTION WIDTH 18.9 % 11.7-14.4 H (BEAKER) (test code = 412) PLATELET COUNT (BEAKER) (test code 48 K/CU MM 150-450 L = 756) MEAN PLATELET VOLUME (BEAKER) 12.4 fL 9.4-12.3 H (test code = 754) NUCLEATED RED BLOOD CELLS (BEAKER) 6 /100 WBC 0-0 H (test code = 413) CALCIUM, [id number] 20:37:33 Test Item Value Reference Range Interpretation Comments CALCIUM IONIZED (BEAKER) (test 1.07 mmol/L 1.12-1.27 L code = 698) PH, BLOOD (BEAKER) (test code = 7.50 1810) BLOOD GAS, [id number] 20:37:27 Test Item Value Reference Range Interpretation Comments PH ARTERIAL (BEAKER) (test code = 7.48 7.35-7.45 H 383) PCO2 ARTERIAL (BEAKER) (test code 35 mm Hg 35-45 = 384) PO2 ARTERIAL (BEAKER) (test code = 153 mm Hg 80-90 H 385) O2 SATURATION ARTERIAL (BEAKER) 99.1 % 96.0-97.0 H (test code = 386) HCO3 ARTERIAL (BEAKER) (test code 25 mmol/L 21-29 = 388) BASE EXCESS ARTERIAL (BEAKER) 1.8 mmol/L -2.0-3.0 (test code = 387) PATIENT TEMPERATURE (BEAKER) (test 38.0 code = 1818) FIO2 (BEAKER) (test code = 1819) 30.0 BLOOD GAS, [id number] 17:43:05 Test Item Value Reference Range Interpretation Comments PH ARTERIAL (BEAKER) (test code = 7.40 7.35-7.45 383) PCO2 ARTERIAL (BEAKER) (test code 41 mm Hg 35-45 = 384) PO2 ARTERIAL (BEAKER) (test code 187 mm Hg 80-90 H = 385) O2 SATURATION ARTERIAL (BEAKER) 99.3 % 96.0-97.0 H (test code = 386) HCO3 ARTERIAL (BEAKER) (test code 24 mmol/L 21-29 = 388) BASE EXCESS ARTERIAL (BEAKER) -0.4 mmol/L -2.0-3.0 (test code = 387) PATIENT TEMPERATURE (BEAKER) 38.0 (test code = 1818) FIO2 (BEAKER) (test code = 1819) 30.0 BASIC METABOLIC [id number] 16:50:01 Test Item Value Reference Range Interpretation Comments SODIUM (BEAKER) 133 meq/L 136-145 L (test code = 381) POTASSIUM 4.7 meq/L 3.5-5.1 (BEAKER) (test code = 379) CHLORIDE (BEAKER) 101 meq/L 98-107 (test code = 382) CO2 (BEAKER) 23 meq/L 22-29 (test code = 355) BLOOD UREA 30 mg/dL 7-21 H NITROGEN (BEAKER) (test code = 354) CREATININE 1.04 mg/dL 0.57-1.25 (BEAKER) (test code = 358) GLUCOSE RANDOM 218 mg/dL 70-105 H (BEAKER) (test code = 652) CALCIUM (BEAKER) 8.2 mg/dL 8.4-10.2 L (test code = 697) EGFR (BEAKER) 66 Interpretatio n of eGFR (test code = [...] not appl icable for dialysis patien ts Security Patrol Officer ID - ADMINSpecimen markedly ictericHepatitis B PCR, quantitative 2022-12-20 15:05:53 Test Item Value Reference Range Interpretation Comments HBV PCR, Quantitative HBV DNA not HBV DNA not (test code = 12353-0) detected detected Lab Interpretation (test Normal code = 93816-8) [facility] [id number] 15:05:53 Test Item Value Reference Range Interpretation Comments HBV RESULT COMPONENT HBV DNA not detected HBV DNA not detected (BEAKER) (test code = 2701) Hepatitis C PCR, [id number] 13:49:28 Test Item Value Reference Range Interpretation Comments HCV PCR, Quantitative HCV RNA not HCV RNA not (test code = 46781-4) detected detected Lab Interpretation (test Normal code = 38555-6) [facility], [id number] 13:49:28 Test Item Value Reference Range Interpretation Comments HCV RESULT COMPONENT HCV RNA not detected HCV RNA not detected (BEAKER) (test code = 2699) [id number] 13:00:08 Test Item Value Reference Range Interpretation Comments PHOSPHORUS (BEAKER) (test code = 2.3 mg/dL 2.3-4.7 604) Security Patrol Officer ID - ADMINBASIC METABOLIC [id number] 13:00:08 Test Item Value Reference Range Interpretation Comments SODIUM (BEAKER) 133 meq/L 136-145 L (test code = 381) POTASSIUM 4.8 meq/L 3.5-5.1 (BEAKER) (test code = 379) CHLORIDE (BEAKER) 102 meq/L 98-107 (test code = 382) CO2 (BEAKER) 21 meq/L 22-29 L (test code = 355) BLOOD UREA 28 mg/dL 7-21 H NITROGEN (BEAKER) (test code = 354) CREATININE 0.89 mg/dL 0.57-1.25 (BEAKER) (test code = 358) GLUCOSE RANDOM 197 mg/dL 70-105 H (BEAKER) (test code = 652) CALCIUM (BEAKER) 8.4 mg/dL 8.4-10.2 (test code = 697) EGFR (BEAKER) 79 Interpretatio n of eGFR (test code = [...] not appl icable for dialysis patien ts Security Patrol Officer ID - ADMINSpecimen markedly [id number] 13:00:07 Test Item Value Reference Range Interpretation Comments MAGNESIUM (BEAKER) (test code = 2.1 mg/dL 1.6-2.6 627) Security Patrol Officer ID - ADMINCBC (HEMOGRAM ONLY)2022-12-20 11:52:44 Test Item Value Reference Range Interpretation Comments WHITE BLOOD CELL COUNT (BEAKER) 11.3 K/ L 3.5-10.5 H (test code = 775) RED BLOOD CELL COUNT (BEAKER) 1.89 M/ L 3.93-5.22 L (test code = 761) HEMOGLOBIN (BEAKER) (test code = 5.8 GM/DL 11.2-15.7 LL 410) HEMATOCRIT (BEAKER) (test code = 15.7 % 34.1-44.9 L 411) MEAN CORPUSCULAR VOLUME (BEAKER) 83 fL 79-95 (test code = 753) MEAN CORPUSCULAR HEMOGLOBIN 30.7 pg 25.6-32.2 (BEAKER) (test code = 751) MEAN CORPUSCULAR HEMOGLOBIN CONC 36.9 GM/DL 32.2-35.5 H (BEAKER) (test code = 752) RED CELL DISTRIBUTION WIDTH 18.9 % 11.7-14.4 H (BEAKER) (test code = 412) PLATELET COUNT (BEAKER) (test code 65 K/CU MM 150-450 L = 756) MEAN PLATELET VOLUME (BEAKER) 12.2 fL 9.4-12.3 (test code = 754) NUCLEATED RED BLOOD CELLS (BEAKER) 6 /100 WBC 0-0 H (test code = 413) BLOOD GAS, [id number] 11:47:53 Test Item Value Reference Range Interpretation Comments PH ARTERIAL (BEAKER) (test code = 7.41 7.35-7.45 383) PCO2 ARTERIAL (BEAKER) (test code 42 mm Hg 35-45 = 384) PO2 ARTERIAL (BEAKER) (test code = 157 mm Hg 80-90 H 385) O2 SATURATION ARTERIAL (BEAKER) 99.0 % 96.0-97.0 H (test code = 386) HCO3 ARTERIAL (BEAKER) (test code 26 mmol/L 21-29 = 388) BASE EXCESS ARTERIAL (BEAKER) 1.4 mmol/L -2.0-3.0 (test code = 387) PATIENT TEMPERATURE (BEAKER) (test 37.0 code = 1818) FIO2 (BEAKER) (test code = 1819) 30.0 CALCIUM, [id number] 11:47:52 Test Item Value Reference Range Interpretation Comments CALCIUM IONIZED (BEAKER) (test 1.10 mmol/L 1.12-1.27 L code = 698) PH, BLOOD (BEAKER) (test code = 7.39 1810) FACTOR 5 ACTIVITY (BLEEDING RISK)2022-12-20 10:26:03 Test Item Value Reference Range Interpretation Comments FACTOR V ACTIVITY (BEAKER) (test code 64.0 % 60.0-150.0 = 665) FACTOR 8 [id number] 09:55:08 Test Item Value Reference Range Interpretation Comments FACTOR VIII ACTIVITY (BEAKER) (test 273.0 % 45.0-150.0 H code = 663) FACTOR 10 [id number] 09:55:08 Test Item Value Reference Range Interpretation Comments FACTOR X ACTIVITY (BEAKER) (test code 29.0 % 70.0-120.0 L = 662) BASIC METABOLIC [id number] 08:47:31 Test Item Value Reference Range Interpretation Comments SODIUM (BEAKER) 133 meq/L 136-145 L (test code = 381) POTASSIUM 4.3 meq/L 3.5-5.1 (BEAKER) (test code = 379) CHLORIDE (BEAKER) 102 meq/L 98-107 (test code = 382) CO2 (BEAKER) 22 meq/L 22-29 (test code = 355) BLOOD UREA 27 mg/dL 7-21 H NITROGEN (BEAKER) (test code = 354) CREATININE 0.88 mg/dL 0.57-1.25 (BEAKER) (test code = 358) GLUCOSE RANDOM 175 mg/dL 70-105 H (BEAKER) (test code = 652) CALCIUM (BEAKER) 8.5 mg/dL 8.4-10.2 (test code = 697) EGFR (BEAKER) 81 Interpretatio n of eGFR (test code = [...] not appl icable for dialysis patien ts Security Patrol Officer ID - AAHAMIDSpecimen markedly ictericPOCT-GLUCOSE [id number] 07:51:26 Test Item Value Reference Range Interpretation Comments POC-GLUCOSE METER 174 mg/dL 70-110 H : TESTED A T [facility] 6720 (BEAKER) (test code [facility], = 1538) [id number]: Security Patrol Officer/Techni waylon ID = [id number] for Evelia andrew (contract), Melissa valeria BLOOD GAS, [id number] 07:46:26 Test Item Value Reference Range Interpretation Comments PH ARTERIAL (BEAKER) (test code = 7.41 7.35-7.45 383) PCO2 ARTERIAL (BEAKER) (test code 42 mm Hg 35-45 = 384) PO2 ARTERIAL (BEAKER) (test code = 172 mm Hg 80-90 H 385) O2 SATURATION ARTERIAL (BEAKER) 99.2 % 96.0-97.0 H (test code = 386) HCO3 ARTERIAL (BEAKER) (test code 26 mmol/L 21-29 = 388) BASE EXCESS ARTERIAL (BEAKER) 0.9 mmol/L -2.0-3.0 (test code = 387) PATIENT TEMPERATURE (BEAKER) (test 37.0 code = 1818) FIO2 (BEAKER) (test code = 1819) 30.0 CMV PCR, [id number] 07:25:55 Test Item Value Reference Range Interpretation Comments CMV VIRAL LOAD - Negative or below See_Comment [Auto mated message] NEGATIVE (BEAKER) the linear range The sy stem which (test code = of the assay generated this 2552) (<300 IU/mL) result transmit tomy reference range : <300 - >3,00 0,000 IU/mL. The refe rence range was not u sed to interpret th is result as normal/abnormal . (CELLAVISION MANUAL DIFF)2022-12-20 06:53:53 Test Item Value Reference Range Interpretation Comments NEUTROPHILS - REL 81 % (CELLAVISION)(BEAKER) (test code = 2816) LYMPHOCYTES - REL 11 % (CELLAVISION)(BEAKER) (test code = 2817) MONOCYTES - REL 4 % (CELLAVISION)(BEAKER) (test code = 2818) MYELOCYTES - REL 1 % 0-0 H (CELLAVISION)(BEAKER) (test code = 2822) PROMYELOCYTES - REL 1 % 0-0 H (CELLAVSION)(BEAKER) (test code = 2825) BANDS - REL (CELLAVISION)(BEAKER) 2 % 0-10 (test code = 2826) NEUTROPHILS - ABS 12.07 K/ul 1.56-6.13 H (CELLAVISION)(BEAKER) (test code = 2830) LYMPHOCYTES - ABS 1.64 K/ul 1.18-3.74 (CELLAVISION)(BEAKER) (test code = 2831) MONOCYTES - ABS 0.60 K/uL 0.24-0.36 H (CELLAVISION)(BEAKER) (test code = 2832) MYELOCYTES-ABS 0.15 K/uL 0.00-0.00 H (CELLAVISION)(BEAKER) (test code = 2837) PROMYELOCYTES - ABS 0.15 K/uL 0.00-0.00 H (CELLAVISION)(BEAKER) (test code = 2838) BANDS - ABS (CELLAVISION)(BEAKER) 0.30 K/uL 0.00-0.80 (test code = 2840) TOTAL COUNTED (BEAKER) (test code 100 = 1351) MANUAL NRBC PER 100 CELLS 9 /100 WBC 0-0 H (BEAKER) (test code = 1353) WBC MORPHOLOGY (BEAKER) (test Normal code = 487) PLT MORPHOLOGY (BEAKER) (test Normal code = 486) POLYCHROMATOPHILLIC RBCS(BEAKER) 2+ moderate (test code = 478) ANISOCYTOSIS (BEAKER) (test code 1+ few = 961) MICROCYTES (BEAKER) (test code = 1+ few 965) MACROCYTES (BEAKER) (test code = 1+ few 964) POIKILOCYTES (BEAKER) (test code 1+ few = 966) NAYLA CELLS (BEAKER) (test code = 1+ few 474) BASOPHILIC STIPPLING (BEAKER) Present (test code = 473) ARTIFACT (CELLAVISION)(BEAKER) Present (test code = 3432) PLATELET CONCENTRATION Decreased (CELLAVISION)(BEAKER) (test code = 3438) Security Patrol Officer ID - [id number] ID - Carisa Jordan comments: Slide comments: CBC W/PLT COUNT & AUTO [id number] 06:53:52 Test Item Value Reference Range Interpretation Comments WHITE BLOOD CELL COUNT (BEAKER) 14.9 K/ L 3.5-10.5 H (test code = 775) RED BLOOD CELL COUNT (BEAKER) 1.90 M/ L 3.93-5.22 L (test code = 761) HEMOGLOBIN (BEAKER) (test code = 5.7 GM/DL 11.2-15.7 LL 410) HEMATOCRIT (BEAKER) (test code = 16.3 % 34.1-44.9 L 411) MEAN CORPUSCULAR VOLUME (BEAKER) 86 fL 79-95 (test code = 753) MEAN CORPUSCULAR HEMOGLOBIN 30.0 pg 25.6-32.2 (BEAKER) (test code = 751) MEAN CORPUSCULAR HEMOGLOBIN CONC 35.0 GM/DL 32.2-35.5 (BEAKER) (test code = 752) RED CELL DISTRIBUTION WIDTH 19.0 % 11.7-14.4 H (BEAKER) (test code = 412) PLATELET COUNT (BEAKER) (test code 61 K/CU MM 150-450 L = 756) MEAN PLATELET VOLUME (BEAKER) 12.5 fL 9.4-12.3 H (test code = 754) NUCLEATED RED BLOOD CELLS (BEAKER) 5 /100 WBC 0-0 H (test code = 413) RAD, CHEST, 1 VIEW, NON [id number] 05:33:00Reason for exam:->resp failureShould this be performed at the bedside?->Yes [facility] : 1975 Sex: FFINAL REPORT CLINICAL INDICATION: resp failure Comparison: 12/19/2022 The cardiomediastinal contours are stable. The lung volumes remain low. Central pulmonary vascular congestion and bilateral parenchymal opacities are unchanged. There is no pneumothorax. Support lines are stable. Signed: Araceli Macario MDReport Verified Date/Time: 12/20/2022 05:33:36 HEPATIC FUNCTION [id number] 04:29:04 Test Item Value Reference Range Interpretation Comments TOTAL PROTEIN (BEAKER) (test code 5.8 gm/dL 6.0-8.3 L = 770) ALBUMIN (BEAKER) (test code = 2.5 g/dL 3.5-5.0 L 1145) BILIRUBIN TOTAL (BEAKER) (test 24.8 mg/dL 0.2-1.2 H code = 377) BILIRUBIN DIRECT (BEAKER) (test 14.6 mg/dL 0.1-0.5 H code = 706) ALKALINE PHOSPHATASE (BEAKER) 478 U/L 40-150 H (test code = 346) AST (SGOT) (BEAKER) (test code = 779 U/L 5-34 H 353) ALT (SGPT) (BEAKER) (test code = 824 U/L 6-55 H 347) Security Patrol Officer ID - NEIL GSpecimen markedly ictericLACTATE DEHYDROGENASE (LDH) 2022-12-20 04:28:57 Test Item Value Reference Range Interpretation Comments LACTATE DEHYDROGENASE (BEAKER) (test 2337 U/L 125-220 H code = 635) Security Patrol Officer ID - NEIL GOperator ID - NEIL GBASIC METABOLIC [id number] 04:28:03 Test Item Value Reference Range Interpretation Comments SODIUM (BEAKER) 132 meq/L 136-145 L (test code = 381) POTASSIUM 4.1 meq/L 3.5-5.1 (BEAKER) (test code = 379) CHLORIDE (BEAKER) 101 meq/L 98-107 (test code = 382) CO2 (BEAKER) 21 meq/L 22-29 L (test code = 355) BLOOD UREA 28 mg/dL 7-21 H NITROGEN (BEAKER) (test code = 354) CREATININE 0.88 mg/dL 0.57-1.25 (BEAKER) (test code = 358) GLUCOSE RANDOM 167 mg/dL 70-105 H (BEAKER) (test code = 652) CALCIUM (BEAKER) 8.4 mg/dL 8.4-10.2 (test code = 697) EGFR (BEAKER) 81 Interpretatio n of eGFR (test code = mL/min/1.73 values Stage D escription 1092) sq m Result G1 Veronica l [...] not appl icable for dialysis patien ts Security Patrol Officer ID - NEIL GSpecimen markedly [id number] 04:28:02 Test Item Value Reference Range Interpretation Comments MAGNESIUM (BEAKER) (test code = 2.0 mg/dL 1.6-2.6 627) Security Patrol Officer ID - NEIL [id number] 04:28:02 Test Item Value Reference Range Interpretation Comments PHOSPHORUS (BEAKER) (test code = 2.1 mg/dL 2.3-4.7 L 604) Security Patrol Officer ID - NEIL [id number] 04:04:19 Test Item Value Reference Range Interpretation Comments HAPTOGLOBIN (BEAKER) (test code = < mg/dL 14-258 L 366) Security Patrol Officer ID - [id number] 03:59:32 Test Item Value Reference Range Interpretation Comments FIBRINOGEN LEVEL (BEAKER) (test 516 mg/dl 225-434 H code = 658) [id number] 03:59:26 Test Item Value Reference Range Interpretation Comments PROTIME (BEAKER) (test code = 15.7 seconds 11.9-14.2 H 759) INR (BEAKER) (test code = 370) 1.27 <=5.90 PARTIAL THROMBOPLASTIN TIME 28.0 seconds 22.5-36.0 (BEAKER) (test code = 760) RECOMMENDED COUMADIN/WARFARIN INR THERAPY RANGESSTANDARD DOSE: 2.0 - 3.0 Includes: PROPHYLAXIS for venous thrombosis, systemic embolization; TREATMENT for venous thrombosis and/or pulmonary embolus.HIGH RISK: Target INR is 2.5-3.5 for patients with mechanical heart valves.RETICULOCYTE [id number] 03:47:36 Test Item Value Reference Range Interpretation Comments RETICULOCYTE COUNT PCT (BEAKER) (test 4.0 % 0.5-1.7 H code = 575) Security Patrol Officer ID - [id number]-GLUCOSE [id number] 03:45:40 Test Item Value Reference Range Interpretation Comments POC-GLUCOSE METER 168 mg/dL 70-110 H : [facility] (test code = [place], 1538) [id number]: Security Patrol Officer/Techni waylon ID = [id number] for SUDARSHAN ALLEN BLOOD GAS, [id number] 03:40:15 Test Item Value Reference Range Interpretation Comments PH ARTERIAL (BEAKER) (test code = 7.39 7.35-7.45 383) PCO2 ARTERIAL (BEAKER) (test code 43 mm Hg 35-45 = 384) PO2 ARTERIAL (BEAKER) (test code = 82 mm Hg 80-90 385) O2 SATURATION ARTERIAL (BEAKER) 95.9 % 96.0-97.0 L (test code = 386) HCO3 ARTERIAL (BEAKER) (test code 25 mmol/L 21-29 = 388) BASE EXCESS ARTERIAL (BEAKER) 0.1 mmol/L -2.0-3.0 (test code = 387) PATIENT TEMPERATURE (BEAKER) (test 37.0 code = 1818) FIO2 (BEAKER) (test code = 1819) 30.0 CALCIUM, [id number] 03:40:05 Test Item Value Reference Range Interpretation Comments CALCIUM IONIZED (BEAKER) (test 1.12 mmol/L 1.12-1.27 code = 698) PH, BLOOD (BEAKER) (test code = 7.39 1810) BASIC METABOLIC [id number] 01:23:08 Test Item Value Reference Range Interpretation Comments SODIUM (BEAKER) 133 meq/L 136-145 L (test code = 381) POTASSIUM 4.3 meq/L 3.5-5.1 (BEAKER) (test code = 379) CHLORIDE (BEAKER) 102 meq/L 98-107 (test code = 382) CO2 (BEAKER) 20 meq/L 22-29 L (test code = 355) BLOOD UREA 28 mg/dL 7-21 H NITROGEN (BEAKER) (test code = 354) CREATININE 0.84 mg/dL 0.57-1.25 (BEAKER) (test code = 358) GLUCOSE RANDOM 183 mg/dL 70-105 H (BEAKER) (test code = 652) CALCIUM (BEAKER) 8.7 mg/dL 8.4-10.2 (test code = 697) EGFR (BEAKER) 85 Interpretatio n of eGFR (test code = [...] not appl icable for dialysis patien ts Security Patrol Officer ID - NEIL GSpecimen markedly ictericBLOOD GAS, [id number] 00:38:21 Test Item Value Reference Range Interpretation Comments PH ARTERIAL (BEAKER) (test code = 7.40 7.35-7.45 383) PCO2 ARTERIAL (BEAKER) (test code 40 mm Hg 35-45 = 384) PO2 ARTERIAL (BEAKER) (test code 107 mm Hg 80-90 H = 385) O2 SATURATION ARTERIAL (BEAKER) 97.9 % 96.0-97.0 H (test code = 386) HCO3 ARTERIAL (BEAKER) (test code 25 mmol/L 21-29 = 388) BASE EXCESS ARTERIAL (BEAKER) -0.1 mmol/L -2.0-3.0 (test code = 387) PATIENT TEMPERATURE (BEAKER) 37.0 (test code = 1818) FIO2 (BEAKER) (test code = 1819) 30.0 POCT-GLUCOSE [id number] 00:09:17 Test Item Value Reference Range Interpretation Comments POC-GLUCOSE METER 153 mg/dL 70-110 H : TESTED A T [facility] 6720 (BEAKER) (test code = ROZ Gutiérrez [facility], 1538) [id number]: Security Patrol Officer/Techni waylon ID = [id number] for SUDARSHAN ALLEN HEPATIC FUNCTION [id number] 21:17:08 Test Item Value Reference Range Interpretation Comments TOTAL PROTEIN (BEAKER) (test code 6.2 gm/dL 6.0-8.3 = 770) ALBUMIN (BEAKER) (test code = 2.7 g/dL 3.5-5.0 L 1145) BILIRUBIN TOTAL (BEAKER) (test 23.8 mg/dL 0.2-1.2 H code = 377) BILIRUBIN DIRECT (BEAKER) (test 16.4 mg/dL 0.1-0.5 H code = 706) ALKALINE PHOSPHATASE (BEAKER) 507 U/L 40-150 H (test code = 346) AST (SGOT) (BEAKER) (test code = 939 U/L 5-34 H 353) ALT (SGPT) (BEAKER) (test code = 884 U/L 6-55 H 347) Security Patrol Officer ID - ADMINOperator ID - ADMINOperator ID - ADMINSpecimen markedly [id number] 21:12:22 Test Item Value Reference Range Interpretation Comments PHOSPHORUS (BEAKER) (test code = 1.8 mg/dL 2.3-4.7 L 604) Security Patrol Officer ID - ADMINBASIC METABOLIC [id number] 21:12:22 Test Item Value Reference Range Interpretation Comments SODIUM (BEAKER) 132 meq/L 136-145 L (test code = 381) POTASSIUM 4.0 meq/L 3.5-5.1 (BEAKER) (test code = 379) CHLORIDE (BEAKER) 100 meq/L 98-107 (test code = 382) CO2 (BEAKER) 21 meq/L 22-29 L (test code = 355) BLOOD UREA 28 mg/dL 7-21 H NITROGEN (BEAKER) (test code = 354) CREATININE 0.79 mg/dL 0.57-1.25 (BEAKER) (test code = 358) GLUCOSE RANDOM 195 mg/dL 70-105 H (BEAKER) (test code = 652) CALCIUM (BEAKER) 8.6 mg/dL 8.4-10.2 (test code = 697) EGFR (BEAKER) 92 Interpretatio n of eGFR (test code = [...] not appl icable for dialysis patien ts Security Patrol Officer ID - ADMINSpecimen markedly [id number] 21:12:21 Test Item Value Reference Range Interpretation Comments MAGNESIUM (BEAKER) (test code = 2.3 mg/dL 1.6-2.6 627) Security Patrol Officer ID - ADMINCBC (HEMOGRAM ONLY)2022-12-19 20:40:50 Test Item Value Reference Range Interpretation Comments WHITE BLOOD CELL COUNT 15.9 K/ L 3.5-10.5 H (BEAKER) (test code = 775) RED BLOOD CELL COUNT 2.06 M/ L 3.93-5.22 L (BEAKER) (test code = 761) HEMOGLOBIN (BEAKER) 6.2 GM/DL 11.2-15.7 L (test code = 410) HEMATOCRIT (BEAKER) 17.1 % 34.1-44.9 L (test code = 411) MEAN CORPUSCULAR 83 fL 79-95 Discordant results VOLUME (BEAKER) (test compar ed to previous code = 753) results; clinic al correlation req uired MEAN CORPUSCULAR 30.1 pg 25.6-32.2 HEMOGLOBIN (BEAKER) (test code = 751) MEAN CORPUSCULAR 36.3 GM/DL 32.2-35.5 H HEMOGLOBIN CONC (BEAKER) (test code = 752) RED CELL DISTRIBUTION 18.3 % 11.7-14.4 H WIDTH (BEAKER) (test code = 412) PLATELET COUNT 75 K/CU MM 150-450 L (BEAKER) (test code = 756) MEAN PLATELET VOLUME 12.1 fL 9.4-12.3 (BEAKER) (test code = 754) NUCLEATED RED BLOOD 6 /100 WBC 0-0 H CELLS (BEAKER) (test code = 413) POCT-GLUCOSE [id number] 20:20:32 Test Item Value Reference Range Interpretation Comments POC-GLUCOSE METER 225 mg/dL 70-110 H : TESTED A T BSC 6720 (BEAKER) (test code = [place], 1538) [address]5825: Security Patrol Officer/Techni waylon ID = [id number] for SUDARSHAN ALLEN CALCIUM, [id number] 20:18:56 Test Item Value Reference Range Interpretation Comments CALCIUM IONIZED (BEAKER) (test 1.11 mmol/L 1.12-1.27 L code = 698) PH, BLOOD (BEAKER) (test code = 7.40 1810) BLOOD GAS, [id number] 20:18:50 Test Item Value Reference Range Interpretation Comments PH ARTERIAL (BEAKER) (test code = 7.40 7.35-7.45 383) PCO2 ARTERIAL (BEAKER) (test code 40 mm Hg 35-45 = 384) PO2 ARTERIAL (BEAKER) (test code 267 mm Hg 80-90 H = 385) O2 SATURATION ARTERIAL (BEAKER) 99.6 % 96.0-97.0 H (test code = 386) HCO3 ARTERIAL (BEAKER) (test code 24 mmol/L 21-29 = 388) BASE EXCESS ARTERIAL (BEAKER) -0.4 mmol/L -2.0-3.0 (test code = 387) PATIENT TEMPERATURE (BEAKER) 37.0 (test code = 1818) FIO2 (BEAKER) (test code = 1819) 30.0 BASIC METABOLIC [id number] 17:20:40 Test Item Value Reference Range Interpretation Comments SODIUM (BEAKER) 133 meq/L 136-145 L (test code = 381) POTASSIUM 3.4 meq/L 3.5-5.1 L (BEAKER) (test code = 379) CHLORIDE (BEAKER) 91 meq/L 98-107 L (test code = 382) CO2 (BEAKER) 19 meq/L 22-29 L (test code = 355) BLOOD UREA 30 mg/dL 7-21 H NITROGEN (BEAKER) (test code = 354) CREATININE 0.86 mg/dL 0.57-1.25 (BEAKER) (test code = 358) GLUCOSE RANDOM 226 mg/dL 70-105 H (BEAKER) (test code = 652) CALCIUM (BEAKER) 8.5 mg/dL 8.4-10.2 (test code = 697) EGFR (BEAKER) 83 Interpretati on of eGFR (test code = [...] not appl icable for dialysis patien ts Security Patrol Officer ID - NEIL GOperator ID - NEIL GSpecimen markedly ictericPOCT-GLUCOSE [id number] 16:24:22 Test Item Value Reference Range Interpretation Comments POC-GLUCOSE METER 246 mg/dL 70-110 H : TESTED A T BSC 6720 (BEAKER) (test code [facility], = 1538) [address]: Security Patrol Officer/Techni waylon ID = [id number] for Evelia andrew (contract), Melissa valeria BLOOD GAS, [id number] 16:22:14 Test Item Value Reference Range Interpretation Comments PH ARTERIAL (BEAKER) (test code = 7.38 7.35-7.45 383) PCO2 ARTERIAL (BEAKER) (test code 40 mm Hg 35-45 = 384) PO2 ARTERIAL (BEAKER) (test code 142 mm Hg 80-90 H = 385) O2 SATURATION ARTERIAL (BEAKER) 98.8 % 96.0-97.0 H (test code = 386) HCO3 ARTERIAL (BEAKER) (test code 23 mmol/L 21-29 = 388) BASE EXCESS ARTERIAL (BEAKER) -1.6 mmol/L -2.0-3.0 (test code = 387) PATIENT TEMPERATURE (BEAKER) 37.0 (test code = 1818) FIO2 (BEAKER) (test code = 1819) 100.0 HIV-1 Antigen with HIV-1/2 [id number] 15:36:06 Test Item Value Reference Range Interpretation Comments HIV-1 Antigen with HIV Nonreactive Nonreactive 1&2 Antibody (test code = 49543-1) AREN (test code = AREN) Security Patrol Officer ID - ADMIN Lab Interpretation (test Normal code = 08251-3) [facility]2 [id number] 15:36:06 Test Item Value Reference Range Interpretation Comments HIV-1 ANTIGEN WITH HIV 1\\T\\2 Nonreactive Nonreactive ANTIBODY (2) (BEAKER) (test code = 2586) Security Patrol Officer ID - [id number] 12:54:48 Test Item Value Reference Range Interpretation Comments PHOSPHORUS (BEAKER) (test code = 2.6 mg/dL 2.3-4.7 604) Security Patrol Officer ID - NEIL GBASIC METABOLIC [id number] 12:54:48 Test Item Value Reference Range Interpretation Comments SODIUM (BEAKER) 132 meq/L 136-145 L (test code = 381) POTASSIUM 4.0 meq/L 3.5-5.1 (BEAKER) (test code = 379) CHLORIDE (BEAKER) 100 meq/L 98-107 (test code = 382) CO2 (BEAKER) 20 meq/L 22-29 L (test code = 355) BLOOD UREA 31 mg/dL 7-21 H NITROGEN (BEAKER) (test code = 354) CREATININE 1.03 mg/dL 0.57-1.25 (BEAKER) (test code = 358) GLUCOSE RANDOM 216 mg/dL 70-105 H (BEAKER) (test code = 652) CALCIUM (BEAKER) 8.6 mg/dL 8.4-10.2 (test code = 697) EGFR (BEAKER) 67 Interpretatio n of eGFR (test code = [...] not appl icable for dialysis patien ts Security Patrol Officer ID - NEIL GSpecimen markedly [id number] 12:54:47 Test Item Value Reference Range Interpretation Comments MAGNESIUM (BEAKER) (test code = 2.2 mg/dL 1.6-2.6 627) Security Patrol Officer ID - NEIL GCBC (HEMOGRAM ONLY)2022-12-19 12:43:40 Test Item Value Reference Range Interpretation Comments WHITE BLOOD CELL COUNT (BEAKER) 15.7 K/ L 3.5-10.5 H (test code = 775) RED BLOOD CELL COUNT (BEAKER) 1.66 M/ L 3.93-5.22 L (test code = 761) HEMOGLOBIN (BEAKER) (test code = 5.4 GM/DL 11.2-15.7 LL 410) HEMATOCRIT (BEAKER) (test code = 14.6 % 34.1-44.9 L 411) MEAN CORPUSCULAR VOLUME (BEAKER) 88 fL 79-95 (test code = 753) MEAN CORPUSCULAR HEMOGLOBIN 32.5 pg 25.6-32.2 H (BEAKER) (test code = 751) MEAN CORPUSCULAR HEMOGLOBIN CONC 37.0 GM/DL 32.2-35.5 H (BEAKER) (test code = 752) RED CELL DISTRIBUTION WIDTH 17.7 % 11.7-14.4 H (BEAKER) (test code = 412) PLATELET COUNT (BEAKER) (test code 75 K/CU MM 150-450 L = 756) MEAN PLATELET VOLUME (BEAKER) 11.9 fL 9.4-12.3 (test code = 754) NUCLEATED RED BLOOD CELLS (BEAKER) 6 /100 WBC 0-0 H (test code = 413) POCT-GLUCOSE [id number] 12:20:07 Test Item Value Reference Range Interpretation Comments POC-GLUCOSE METER 206 mg/dL 70-110 H : TESTED [facility] 6720 (BEAKER) (test code [facility], = 1538) [id number]: Security Patrol Officer/Techni waylon ID = [id number] for Evelia andrew (contract), Melissa valeria BLOOD GAS, [id number] 12:15:16 Test Item Value Reference Range Interpretation Comments PH ARTERIAL (BEAKER) (test code = 7.36 7.35-7.45 383) PCO2 ARTERIAL (BEAKER) (test code 44 mm Hg 35-45 = 384) PO2 ARTERIAL (BEAKER) (test code 143 mm Hg 80-90 H = 385) O2 SATURATION ARTERIAL (BEAKER) 98.7 % 96.0-97.0 H (test code = 386) HCO3 ARTERIAL (BEAKER) (test code 24 mmol/L 21-29 = 388) BASE EXCESS ARTERIAL (BEAKER) -1.2 mmol/L -2.0-3.0 (test code = 387) PATIENT TEMPERATURE (BEAKER) 38.0 (test code = 1818) FIO2 (BEAKER) (test code = 1819) 40.0 [id number] 12:13:01 Test Item Value Reference Range Interpretation Comments AMMONIA (BEAKER) (test code = 348) 44 mol/L 18-72 Security Patrol Officer ID - NEIL GOperator ID - NEIL GCALCIUM, [id number] 12:05:38 Test Item Value Reference Range Interpretation Comments CALCIUM IONIZED (BEAKER) (test 1.13 mmol/L 1.12-1.27 code = 698) PH, BLOOD (BEAKER) (test code = 7.37 1810) RAD, CHEST, 1 VIEW, NON [id number] 10:50:00Reason for exam:->resp failureShould this be performed at the bedside?->Yes [facility] 1975 Sex: FFINAL REPORT Chest one view: HISTORY: Respiratory failure Compared to 12/18/2022. The endotracheal tube has been pulled back and projects approximately 4 cm from the wilfredo. The remaining support apparatus appears unchanged in position. There is patchy right basilar atelectasis/consolidation. No pleural effusion is noted. Cardiac size is unchanged. Signed: Phillip Cruzeppurvi Verified Date/Time: 12/19/2022 10:50:17 BASIC METABOLIC [id number] 08:49:17 Test Item Value Reference Range Interpretation Comments SODIUM (BEAKER) 133 meq/L 136-145 L (test code = 381) POTASSIUM 3.6 meq/L 3.5-5.1 (BEAKER) (test code = 379) CHLORIDE (BEAKER) 99 meq/L 98-107 (test code = 382) CO2 (BEAKER) 21 meq/L 22-29 L (test code = 355) BLOOD UREA 30 mg/dL 7-21 H NITROGEN (BEAKER) (test code = 354) CREATININE 1.01 mg/dL 0.57-1.25 (BEAKER) (test code = 358) GLUCOSE RANDOM 188 mg/dL 70-105 H (BEAKER) (test code = 652) CALCIUM (BEAKER) 8.9 mg/dL 8.4-10.2 (test code = 697) EGFR (BEAKER) 68 Interpretatio n of eGFR (test code = [...] not appl icable for dialysis patien ts Security Patrol Officer ID - NEIL GSpecimen markedly ictericBLOOD GAS, [id number] 08:28:39 Test Item Value Reference Range Interpretation Comments PH ARTERIAL (BEAKER) (test code = 7.40 7.35-7.45 383) PCO2 ARTERIAL (BEAKER) (test code 41 mm Hg 35-45 = 384) PO2 ARTERIAL (BEAKER) (test code 197 mm Hg 80-90 H = 385) O2 SATURATION ARTERIAL (BEAKER) 99.3 % 96.0-97.0 H (test code = 386) HCO3 ARTERIAL (BEAKER) (test code 24 mmol/L 21-29 = 388) BASE EXCESS ARTERIAL (BEAKER) -0.3 mmol/L -2.0-3.0 (test code = 387) PATIENT TEMPERATURE (BEAKER) 37.5 (test code = 1818) FIO2 (BEAKER) (test code = 1819) 50.0 POCT-GLUCOSE [id number] 08:21:19 Test Item Value Reference Range Interpretation Comments POC-GLUCOSE METER 210 mg/dL 70-110 H : TESTED A T [facility] 6720 (BEAKER) (test code [facility], = 1538) [address]: Security Patrol Officer/Techni waylon ID = [id number] for Evelia andrew (contract), Melissa valeria HEPATITIS B CORE ANTIBODY, [id number] 04:38:30 Test Item Value Reference Range Interpretation Comments HEPATITIS B CORE TOTAL ANTIBODY Reactive Nonreactive A (BEAKER) (test code = 497) Security Patrol Officer ID - ADMINOperator ID - ADMINOperator ID - ADMIN(MANUAL DIFFERENTIAL) 2022-12-19 03:37:35 Test Item Value Reference Range Interpretation Comments NEUTROPHILS - REL (DIFF) (BEAKER) 84 % (test code = 1359) LYMPHOCYTES - REL (DIFF) (BEAKER) 5 % (test code = 1360) MONOCYTES - REL (DIFF) (BEAKER) 2 % (test code = 1361) METAMYELOCYTES-REL (DIFF) (BEAKER) 1 % 0-0 H (test code = 258) BANDS - REL (DIFF) (BEAKER) (test 7 % 0-10 code = 1348) BLASTS - REL (DIFF) (BEAKER) (test 1 % 0-0 H code = 1358) NEUTROPHILS - ABS (DIFF) (BEAKER) 17.30 K/ L 1.80-8.00 H (test code = 1365) LYMPHOCYTES - ABS (DIFF) (BEAKER) 1.03 K/ L 1.48-4.50 L (test code = 1366) MONOCYTES - ABS (DIFF) (BEAKER) 0.41 K/ L 0.00-1.30 (test code = 1367) METAMYELOCTYES - ABS (DIFF) 0.21 K/ L 0.00-0.00 H (BEAKER) (test code = 261) BANDS-ABS (DIFF) (BEAKER) (test 1.4 K/ L 0.0-0.8 H code = 1349) BLASTS - ABS (DIFF) (BEAKER) (test 0.21 K/ L 0.00-0.00 H code = 1350) TOTAL COUNTED (BEAKER) (test code 100 = 1351) BANDS + SEGMENTED NEUTROPHILS 18.75 (BEAKER) (test code = 1352) MANUAL NRBC PER 100 CELLS (BEAKER) 7 /100 WBC 0-0 H (test code = 1353) PLT MORPHOLOGY (BEAKER) (test code Normal = 486) DOHLE BODIES (BEAKER) (test code = Present 359) VACUOLATED NEUTROPHILS (BEAKER) Present (test code = 483) ANISOCYTOSIS (BEAKER) (test code = 1+ few 961) BASOPHILIC STIPPLING (BEAKER) Present (test code = 473) OVALOCYTES (BEAKER) (test code = 1+ few 477) Slight RBC agglutination present consistent with cold agglutinin.CBC W/PLT COUNT & AUTO [id number] 03:37:34 Test Item Value Reference Range Interpretation Comments WHITE BLOOD CELL COUNT 20.6 K/ L 3.5-10.5 H (BEAKER) (test code = 775) RED BLOOD CELL COUNT 1.90 M/ L 3.93-5.22 L (BEAKER) (test code = 761) HEMOGLOBIN (BEAKER) 6.0 GM/DL 11.2-15.7 LL (test code = 410) HEMATOCRIT (BEAKER) 16.1 % 34.1-44.9 L (test code = 411) MEAN CORPUSCULAR VOLUME 85 fL 79-95 (BEAKER) (test code = 753) MEAN CORPUSCULAR 31.6 pg 25.6-32.2 HEMOGLOBIN (BEAKER) (test code = 751) MEAN CORPUSCULAR 37.3 GM/DL 32.2-35.5 H Specimen pr e-warmed HEMOGLOBIN CONC to 37 degree s C (BEAKER) (test code = before testing to 752) eliminate cold agglutinin interference. RED CELL DISTRIBUTION 17.3 % 11.7-14.4 H WIDTH (BEAKER) (test code = 412) PLATELET COUNT (BEAKER) 86 K/CU MM 150-450 L (test code = 756) MEAN PLATELET VOLUME 12.0 fL 9.4-12.3 (BEAKER) (test code = 754) NUCLEATED RED BLOOD 6 /100 WBC 0-0 H CELLS (BEAKER) (test code = 413) HEPATITIS A ANTIBODY, [id number] 03:24:51 Test Item Value Reference Range Interpretation Comments HEPATITIS A IGG ANTIBODY (BEAKER) Reactive Nonreactive A (test code = 2797) Security Patrol Officer ID - ADMINHEPATITIS B SURFACE [id number] 03:23:33 Test Item Value Reference Range Interpretation Comments HEPATITIS B SURFACE ANTIBODY 467.8 mIU/mL <8.0 H (BEAKER) (test code = 647) Security Patrol Officer ID - ADMINRETICULOCYTE [id number] 03:17:35 Test Item Value Reference Range Interpretation Comments RETICULOCYTE COUNT PCT (BEAKER) (test 4.2 % 0.5-1.7 H code = 575) Security Patrol Officer ID - [id number] 03:10:15 Test Item Value Reference Range Interpretation Comments HAPTOGLOBIN (BEAKER) (test code = < mg/dL 14-258 L 366) Security Patrol Officer ID - ADMINHEPATIC FUNCTION [id number] 03:10:09 Test Item Value Reference Range Interpretation Comments TOTAL PROTEIN (BEAKER) (test code 6.2 gm/dL 6.0-8.3 = 770) ALBUMIN (BEAKER) (test code = 2.9 g/dL 3.5-5.0 L 1145) BILIRUBIN TOTAL (BEAKER) (test 24.7 mg/dL 0.2-1.2 H code = 377) BILIRUBIN DIRECT (BEAKER) (test 14.3 mg/dL 0.1-0.5 H code = 706) ALKALINE PHOSPHATASE (BEAKER) 590 U/L 40-150 H (test code = 346) AST (SGOT) (BEAKER) (test code = 2683 U/L 5-34 H 353) ALT (SGPT) (BEAKER) (test code = 1195 U/L 6-55 H 347) Security Patrol Officer ID - NEIL GSpecimen markedly ictericSpecimen slightly lipemicLACTATE DEHYDROGENASE (LDH)2022-12-19 03:09:46 Test Item Value Reference Range Interpretation Comments LACTATE DEHYDROGENASE (BEAKER) (test 7180 U/L 125-220 H code = 635) Security Patrol Officer ID - NEIL GOperator ID - NEIL GBASIC METABOLIC [id number] 03:05:52 Test Item Value Reference Range Interpretation Comments SODIUM (BEAKER) 135 meq/L 136-145 L (test code = 381) POTASSIUM 3.8 meq/L 3.5-5.1 (BEAKER) (test code = 379) CHLORIDE (BEAKER) 99 meq/L 98-107 (test code = 382) CO2 (BEAKER) 18 meq/L 22-29 L (test code = 355) BLOOD UREA 31 mg/dL 7-21 H NITROGEN (BEAKER) (test code = 354) CREATININE 1.00 mg/dL 0.57-1.25 (BEAKER) (test code = 358) GLUCOSE RANDOM 207 mg/dL 70-105 H (BEAKER) (test code = 652) CALCIUM (BEAKER) 8.7 mg/dL 8.4-10.2 (test code = 697) EGFR (BEAKER) 69 Interpretatio n of eGFR (test code = [...] not appl icable for dialysis patien ts Security Patrol Officer ID - NEIL GSpecimen markedly [id number] 03:05:51 Test Item Value Reference Range Interpretation Comments MAGNESIUM (BEAKER) (test code = 2.2 mg/dL 1.6-2.6 627) Security Patrol Officer ID - NEIL [id number] 03:05:51 Test Item Value Reference Range Interpretation Comments PHOSPHORUS (BEAKER) (test code = 3.6 mg/dL 2.3-4.7 604) Security Patrol Officer ID - NEIL DUVALL, TIBC, % SAT. (WITHOUT FERRITIN)2022-12-19 03:02:08 Test Item Value Reference Range Interpretation Comments IRON (BEAKER) (test code = 547) 204.0 ug/dL 40.0-160.0 H TOTAL IRON BINDING CAPACITY 168 ug/dL 250-450 L (BEAKER) (test code = 769) IRON % SATURATION (2) (BEAKER) 121 % 20-55 H (test code = 2590) Security Patrol Officer ID - ADMINVANCOMYCIN LEVEL, [id number] 02:59:49 Test Item Value Reference Range Interpretation Comments VANCOMYCIN TROUGH (BEAKER) (test 9.0 ug/mL 10.0-20.0 L code = 522) Security Patrol Officer ID - ADMINPT/[id number] 02:48:49 Test Item Value Reference Range Interpretation Comments PROTIME (BEAKER) (test code = 19.7 seconds 11.9-14.2 H 759) INR (BEAKER) (test code = 370) 1.78 <=5.90 PARTIAL THROMBOPLASTIN TIME 32.2 seconds 22.5-36.0 (BEAKER) (test code = 760) RECOMMENDED COUMADIN/WARFARIN INR THERAPY RANGESSTANDARD DOSE: 2.0 - 3.0 Includes: PROPHYLAXIS for venous thrombosis, systemic embolization; TREATMENT for venous thrombosis and/or pulmonary embolus.HIGH RISK: Target INR is 2.5-3.5 for patients with mechanical heart valves.[id number] 02:48:25 Test Item Value Reference Range Interpretation Comments FIBRINOGEN LEVEL (BEAKER) (test 535 mg/dl 225-434 H code = 658) BLOOD GAS, [id number] 02:47:00 Test Item Value Reference Range Interpretation Comments PH ARTERIAL (BEAKER) (test code = 7.40 7.35-7.45 383) PCO2 ARTERIAL (BEAKER) (test code 39 mm Hg 35-45 = 384) PO2 ARTERIAL (BEAKER) (test code 183 mm Hg 80-90 H = 385) O2 SATURATION ARTERIAL (BEAKER) 99.3 % 96.0-97.0 H (test code = 386) HCO3 ARTERIAL (BEAKER) (test code 24 mmol/L 21-29 = 388) BASE EXCESS ARTERIAL (BEAKER) -0.7 mmol/L -2.0-3.0 (test code = 387) PATIENT TEMPERATURE (BEAKER) 37.0 (test code = 1818) FIO2 (BEAKER) (test code = 1819) 100.0 CALCIUM, [id number] 02:47:00 Test Item Value Reference Range Interpretation Comments CALCIUM IONIZED (BEAKER) (test 1.08 mmol/L 1.12-1.27 L code = 698) PH, BLOOD (BEAKER) (test code = 7.40 1810) POCT-GLUCOSE [id number] 02:46:42 Test Item Value Reference Range Interpretation Comments POC-GLUCOSE METER 189 mg/dL 70-110 H : TESTED A T [facility] 6720 (BEAKER) (test code = [place], 1538) [address]: Security Patrol Officer/Techni waylon ID = [id number] for SUDARSHAN ALLEN BASIC METABOLIC [id number] 01:03:55 Test Item Value Reference Range Interpretation Comments SODIUM (BEAKER) 133 meq/L 136-145 L (test code = 381) POTASSIUM 4.1 meq/L 3.5-5.1 (BEAKER) (test code = 379) CHLORIDE (BEAKER) 99 meq/L 98-107 (test code = 382) CO2 (BEAKER) 18 meq/L 22-29 L (test code = 355) BLOOD UREA 30 mg/dL 7-21 H NITROGEN (BEAKER) (test code = 354) CREATININE 0.95 mg/dL 0.57-1.25 (BEAKER) (test code = 358) GLUCOSE RANDOM 227 mg/dL 70-105 H (BEAKER) (test code = 652) CALCIUM (BEAKER) 8.7 mg/dL 8.4-10.2 (test code = 697) EGFR (BEAKER) 73 Interpretatio n of eGFR (test code = [...] not appl icable for dialysis patien ts Security Patrol Officer ID - NEIL GSpecimen markedly ictericPOCT-GLUCOSE [id number] 00:22:04 Test Item Value Reference Range Interpretation Comments POC-GLUCOSE METER 269 mg/dL 70-110 H : TESTED A T [facility] 6720 (Upside) (test code = [place], 1538) [address]: Security Patrol Officer/Techni waylon ID = [id number] for OD SUDARSHAN TAVERA Prepare [id number] 23:54:00 Test Item Value Reference Range Interpretation Comments Unit ABO (test code = A Pos 1738472) UNIT NUMBER (test code = [id number] 934-0) Status (test code = 4102640) [facility] Blood [facility] Product (test code CRYOPRECIPITATE = 2263) PRODUCT CODE (test code = Y6263V38 933-2) [facility] [id number] 23:54:00 Test Item Value Reference Range Interpretation Comments Unit ABO (test code = 8102221) A Pos UNIT NUMBER (test code = [id number] 934-0) Status (test code = 1352450) TX_TIMEINCHART Blood Bank Product (test code FFP = 2263) PRODUCT CODE (test code = I2602Z85 933-2) [facility] [id number] 22:16:50 Test Item Value Reference Range Interpretation Comments POC-GLUCOSE METER 203 mg/dL 70-110 H : TESTED A T [facility] 6720 (BEAKER) (test code = [place], 1538) [address]: Security Patrol Officer/Techni waylon ID = [id number] for SUDARSHAN ALLEN HEPATIC FUNCTION [id number] 21:32:28 Test Item Value Reference Range Interpretation Comments TOTAL PROTEIN (BEAKER) (test code 6.1 gm/dL 6.0-8.3 = 770) ALBUMIN (BEAKER) (test code = 2.8 g/dL 3.5-5.0 L 1145) BILIRUBIN TOTAL (BEAKER) (test 22.1 mg/dL 0.2-1.2 H code = 377) BILIRUBIN DIRECT (BEAKER) (test 12.2 mg/dL 0.1-0.5 H code = 706) ALKALINE PHOSPHATASE (BEAKER) 540 U/L 40-150 H (test code = 346) AST (SGOT) (BEAKER) (test code = 3390 U/L 5-34 H 353) ALT (SGPT) (BEAKER) (test code = 1208 U/L 6-55 H 347) Security Patrol Officer ID - ADMINSpecimen markedly ictericSpecimen slightly lipemicMAGNESIUM 2022-12-18 21:29:35 Test Item Value Reference Range Interpretation Comments MAGNESIUM (BEAKER) (test code = 2.2 mg/dL 1.6-2.6 627) Security Patrol Officer ID - [id number] 21:29:35 Test Item Value Reference Range Interpretation Comments PHOSPHORUS (BEAKER) (test code = 3.5 mg/dL 2.3-4.7 604) Security Patrol Officer ID - ADMINLACTIC ACID, [id number] 20:42:12 Test Item Value Reference Range Interpretation Comments LACTATE BLOOD ARTERIAL (2) 1.7 mmol/L 0.5-2.2 (BEAKER) (test code = 2874) Security Patrol Officer ID - ADMINSpecimen markedly ictericSpecimen slightly lipemicCBC (HEMOGRAM ONLY)2022-12-18 20:39:54 Test Item Value Reference Range Interpretation Comments WHITE BLOOD CELL COUNT (BEAKER) 22.7 K/ L 3.5-10.5 H (test code = 775) RED BLOOD CELL COUNT (BEAKER) 1.86 M/ L 3.93-5.22 L (test code = 761) HEMOGLOBIN (BEAKER) (test code = 6.0 GM/DL 11.2-15.7 LL 410) HEMATOCRIT (BEAKER) (test code = 16.2 % 34.1-44.9 L 411) MEAN CORPUSCULAR VOLUME (BEAKER) 87 fL 79-95 (test code = 753) MEAN CORPUSCULAR HEMOGLOBIN 32.3 pg 25.6-32.2 H (BEAKER) (test code = 751) MEAN CORPUSCULAR HEMOGLOBIN CONC 37.0 GM/DL 32.2-35.5 H (BEAKER) (test code = 752) RED CELL DISTRIBUTION WIDTH 17.3 % 11.7-14.4 H (BEAKER) (test code = 412) PLATELET COUNT (BEAKER) (test code 85 K/CU MM 150-450 L = 756) MEAN PLATELET VOLUME (BEAKER) 11.7 fL 9.4-12.3 (test code = 754) NUCLEATED RED BLOOD CELLS (BEAKER) 6 /100 WBC 0-0 H (test code = 413) CALCIUM, [id number] 20:12:17 Test Item Value Reference Range Interpretation Comments CALCIUM IONIZED (BEAKER) (test 1.11 mmol/L 1.12-1.27 L code = 698) PH, BLOOD (BEAKER) (test code = 7.38 1810) BLOOD GAS, [id number] 20:12:17 Test Item Value Reference Range Interpretation Comments PH ARTERIAL (BEAKER) (test code = 7.38 7.35-7.45 383) PCO2 ARTERIAL (BEAKER) (test code 42 mm Hg 35-45 = 384) PO2 ARTERIAL (BEAKER) (test code 156 mm Hg 80-90 H = 385) O2 SATURATION ARTERIAL (BEAKER) 99.0 % 96.0-97.0 H (test code = 386) HCO3 ARTERIAL (BEAKER) (test code 24 mmol/L 21-29 = 388) BASE EXCESS ARTERIAL (BEAKER) -1.2 mmol/L -2.0-3.0 (test code = 387) PATIENT TEMPERATURE (BEAKER) 37.0 (test code = 1818) FIO2 (BEAKER) (test code = 1819) 60.0 ACETAMINOPHEN [id number] 17:01:53 Test Item Value Reference Range Interpretation Comments ACETAMINOPHEN LEVEL (BEAKER) (test < ug/mL 10.0-30.0 L code = 344) Therapeutic Range: 10.0-30.0 g/mLToxic Levels: >200.0 g/mLOperator ID - MM LACTIC ACID, [id number] 16:58:14 Test Item Value Reference Range Interpretation Comments LACTATE BLOOD ARTERIAL (2) 2.8 mmol/L 0.5-2.2 H (BEAKER) (test code = 4904) Security Patrol Officer ID - MMSpecimen markedly ictericSpecimen slightly lipemicBASIC METABOLIC [id number] 16:56:06 Test Item Value Reference Range Interpretation Comments SODIUM (BEAKER) 134 meq/L 136-145 L (test code = 381) POTASSIUM 4.4 meq/L 3.5-5.1 (BEAKER) (test code = 379) CHLORIDE (BEAKER) 100 meq/L 98-107 (test code = 382) CO2 (BEAKER) 19 meq/L 22-29 L (test code = 355) BLOOD UREA 26 mg/dL 7-21 H NITROGEN (BEAKER) (test code = 354) CREATININE 1.07 mg/dL 0.57-1.25 (BEAKER) (test code = 358) GLUCOSE RANDOM 154 mg/dL 70-105 H (BEAKER) (test code = 652) CALCIUM (BEAKER) 9.3 mg/dL 8.4-10.2 (test code = 697) EGFR (BEAKER) 64 Interpretatio n of eGFR (test code = [...] not appl icable for dialysis patien ts Security Patrol Officer ID - MMSpecimen markedly ictericBLOOD GAS, [id number] 16:24:05 Test Item Value Reference Range Interpretation Comments PH ARTERIAL (BEAKER) (test code = 7.36 7.35-7.45 383) PCO2 ARTERIAL (BEAKER) (test code 42 mm Hg 35-45 = 384) PO2 ARTERIAL (BEAKER) (test code 160 mm Hg 80-90 H = 385) O2 SATURATION ARTERIAL (BEAKER) 99.0 % 96.0-97.0 H (test code = 386) HCO3 ARTERIAL (BEAKER) (test code 23 mmol/L 21-29 = 388) BASE EXCESS ARTERIAL (BEAKER) -2.1 mmol/L -2.0-3.0 L (test code = 387) PATIENT TEMPERATURE (BEAKER) 37.0 (test code = 1818) FIO2 (BEAKER) (test code = 1819) 60.0 RAD, CHEST, 1 VIEW, NON [id number] 15:57:00Reason for exam:->Status-post intubationShould this be performed at the bedside?->Yes [facility]SUSANA : 1975 Sex: FFINAL REPORT EXAMINATION: RAD, CHEST, 1 VIEW, NON DEPT. INDICATION: 47-year-old female status post intubation. COMPARISON: Chest radiograph dated 12/18/2022. FINDINGS/ IMPRESSION:Interval intubation with endotracheal tube terminating at the wilfredo. Recommend retracting by 2-3 cm if not already performed. Interval placement of an enteric tube terminating below the level of the diaphragms. Other findings remain unchanged. PHYSICIAN NOTIFICATION: The significant findings of this examination were communicated to the covering nurse by telephone at 12/18/2022 3:45 PM. Signed: [facility] Verified Date/Time: 12/18/2022 15:57:34 CBC (HEMOGRAM ONLY)2022-12-18 13:51:22 Test Item Value Reference Range Interpretation Comments WHITE BLOOD CELL COUNT (BEAKER) 22.3 K/ L 3.5-10.5 H (test code = 775) RED BLOOD CELL COUNT (BEAKER) 2.00 M/ L 3.93-5.22 L (test code = 761) HEMOGLOBIN (BEAKER) (test code = 6.5 GM/DL 11.2-15.7 L 410) HEMATOCRIT (BEAKER) (test code = 17.4 % 34.1-44.9 L 411) MEAN CORPUSCULAR VOLUME (BEAKER) 87 fL 79-95 (test code = 753) MEAN CORPUSCULAR HEMOGLOBIN 32.5 pg 25.6-32.2 H (BEAKER) (test code = 751) MEAN CORPUSCULAR HEMOGLOBIN CONC 37.4 GM/DL 32.2-35.5 H (BEAKER) (test code = 752) RED CELL DISTRIBUTION WIDTH 17.3 % 11.7-14.4 H (BEAKER) (test code = 412) PLATELET COUNT (BEAKER) (test code 95 K/CU MM 150-450 L = 756) MEAN PLATELET VOLUME (BEAKER) 12.9 fL 9.4-12.3 H (test code = 754) NUCLEATED RED BLOOD CELLS (BEAKER) 7 /100 WBC 0-0 H (test code = 413) LACTIC ACID, [id number] 13:20:23 Test Item Value Reference Range Interpretation Comments LACTATE BLOOD ARTERIAL (2) 4.7 mmol/L 0.5-2.2 HH (BEAKER) (test code = 2874) Security Patrol Officer ID - ADMINSpecimen markedly ictericSpecimen slightly lipemicAMMONIA 2022-12-18 13:18:44 Test Item Value Reference Range Interpretation Comments AMMONIA (BEAKER) (test code = 348) 123 mol/L 18-72 H Security Patrol Officer ID - MMOperator ID - MMIMMUNOGLOBULIN G (IGG)2022-12-18 13:12:39 Test Item Value Reference Range Interpretation Comments IMMUNOGLOBULIN G (IGG) (BEAKER) 1648 mg/dL 540-1822 (test code = 427) Security Patrol Officer ID - [id number] 13:06:44 Test Item Value Reference Range Interpretation Comments PHOSPHORUS (BEAKER) (test code = 3.7 mg/dL 2.3-4.7 604) Security Patrol Officer ID - ADMINBASIC METABOLIC [id number] 13:06:44 Test Item Value Reference Range Interpretation Comments SODIUM (BEAKER) 130 meq/L 136-145 L (test code = 381) POTASSIUM 4.4 meq/L 3.5-5.1 (BEAKER) (test code = 379) CHLORIDE (BEAKER) 98 meq/L 98-107 (test code = 382) CO2 (BEAKER) 17 meq/L 22-29 L (test code = 355) BLOOD UREA 26 mg/dL 7-21 H NITROGEN (BEAKER) (test code = 354) CREATININE 1.15 mg/dL 0.57-1.25 (BEAKER) (test code = 358) GLUCOSE RANDOM 132 mg/dL 70-105 H (BEAKER) (test code = 652) CALCIUM (BEAKER) 8.5 mg/dL 8.4-10.2 (test code = 697) EGFR (BEAKER) 58 Interpretatio n of eGFR (test code = [...] not appl icable for dialysis patien ts Security Patrol Officer ID - ADMINSpecimen markedly [id number] 13:06:43 Test Item Value Reference Range Interpretation Comments MAGNESIUM (BEAKER) (test code = 2.3 mg/dL 1.6-2.6 627) Security Patrol Officer ID - ADMINCALCIUM, [id number] 12:20:18 Test Item Value Reference Range Interpretation Comments CALCIUM IONIZED (BEAKER) (test 1.04 mmol/L 1.12-1.27 L code = 698) PH, BLOOD (BEAKER) (test code = 7.43 1810) BLOOD GAS, [id number] 12:20:18 Test Item Value Reference Range Interpretation Comments PH ARTERIAL (BEAKER) (test code = 7.43 7.35-7.45 383) PCO2 ARTERIAL (BEAKER) (test code 32 mm Hg 35-45 L = 384) PO2 ARTERIAL (BEAKER) (test code 110 mm Hg 80-90 H = 385) O2 SATURATION ARTERIAL (BEAKER) 98.2 % 96.0-97.0 H (test code = 386) HCO3 ARTERIAL (BEAKER) (test code 21 mmol/L 21-29 = 388) BASE EXCESS ARTERIAL (BEAKER) -2.5 mmol/L -2.0-3.0 L (test code = 387) PATIENT TEMPERATURE (BEAKER) 37.0 (test code = 1818) FIO2 (BEAKER) (test code = 1819) 40.0 [id number] 12:04:06 Test Item Value Reference Range Interpretation Comments HAPTOGLOBIN (BEAKER) (test code = < mg/dL 14-258 L 366) Security Patrol Officer ID - ADMINHEPATITIS PANEL, [id number] 11:11:25 Test Item Value Reference Range Interpretation Comments HEPATITIS A IGM ANTIBODY (BEAKER) Nonreactive Nonreactive (test code = 498) HEPATITIS B CORE IGM ANTIBODY Nonreactive Nonreactive (BEAKER) (test code = 645) HEPATITIS C ANTIBODY (BEAKER) Nonreactive Nonreactive (test code = 367) HEPATITIS B SURFACE ANTIGEN (2) Nonreactive Nonreactive (BEAKER) (test code = 2585) Security Patrol Officer ID - ADMINRAD, CHEST, 1 VIEW, NON [id number] 10:55:00Reason for exam:->resp distressShould this be performed at the bedside?->Yes [facility] : 1975 Sex: FFINAL REPORT EXAMINATION: RAD, CHEST, 1 VIEW, NON DEPT. INDICATION: 47-year-old female with respiratory distress. COMPARISON: Chest radiograph dated 11/19/2022. FINDINGS/ IMPRESSION:A nontunneled hemodialysis catheter is noted in the right internal jugular vein with tip overlying the cavoatrial junction. Mild bilateral interstitial opacities, suggestive of mild pulmonary interstitial edema. No large pleural effusion or pneumothorax. Other findings remain unchanged. Signed: [facility] Verified Date/Time: 12/18/2022 10:55:35 (CELLAVISION MANUAL DIFF)2022-12-18 10:11:58 Test Item Value Reference Range Interpretation Comments NEUTROPHILS - REL 65 % (CELLAVISION)(BEAKER) (test code = 2816) LYMPHOCYTES - REL 8 % (CELLAVISION)(BEAKER) (test code = 2817) MONOCYTES - REL 2 % (CELLAVISION)(BEAKER) (test code = 2818) METAMYELOCYTES - REL 2 % 0-0 H (CELLAVISION)(BEAKER) (test code = 2821) MYELOCYTES - REL 3 % 0-0 H (CELLAVISION)(BEAKER) (test code = 2822) PROMYELOCYTES - REL 2 % 0-0 H (CELLAVSION)(BEAKER) (test code = 2825) BANDS - REL (CELLAVISION)(BEAKER) 17 % 0-10 H (test code = 2826) NEUTROPHILS - ABS 15.80 K/ul 1.56-6.13 H (CELLAVISION)(BEAKER) (test code = 2830) LYMPHOCYTES - ABS 1.94 K/ul 1.18-3.74 (CELLAVISION)(BEAKER) (test code = 2831) MONOCYTES - ABS 0.49 K/uL 0.24-0.36 H (CELLAVISION)(BEAKER) (test code = 2832) METAMYELOCYTES - ABS 0.49 K/uL 0.00-0.00 H (CELLAVISION)(BEAKER) (test code = 2836) MYELOCYTES-ABS 0.73 K/uL 0.00-0.00 H (CELLAVISION)(BEAKER) (test code = 2837) PROMYELOCYTES - ABS 0.49 K/uL 0.00-0.00 H (CELLAVISION)(BEAKER) (test code = 2838) BANDS - ABS (CELLAVISION)(BEAKER) 4.13 K/uL 0.00-0.80 H (test code = 2840) TOTAL COUNTED (BEAKER) (test code 100 = 1351) MANUAL NRBC PER 100 CELLS 5 /100 WBC 0-0 H (BEAKER) (test code = 1353) PLT MORPHOLOGY (BEAKER) (test Normal code = 486) VACUOLATED NEUTROPHILS (BEAKER) Present (test code = 483) POLYCHROMATOPHILLIC RBCS(BEAKER) 1+ few (test code = 478) ANISOCYTOSIS (BEAKER) (test code 2+ moderate = 961) MICROCYTES (BEAKER) (test code = 2+ moderate 965) POIKILOCYTES (BEAKER) (test code 1+ few = 966) ROULEAUX (BEAKER) (test code = 1+ few 763) BASOPHILIC STIPPLING (BEAKER) Present (test code = 473) ARTIFACT (CELLAVISION)(BEAKER) Present (test code = 3432) PLATELET CONCENTRATION Decreased (CELLAVISION)(BEAKER) (test code = 3438) Security Patrol Officer ID - [id number] ID - Santa OverholtUser comments: Slide comments:CBC W/PLT COUNT & AUTO [id number] 10:11:57 Test Item Value Reference Range Interpretation Comments WHITE BLOOD CELL 24.3 K/ L 3.5-10.5 H COUNT (BEAKER) (test code = 775) RED BLOOD CELL COUNT 1.60 M/ L 3.93-5.22 L (BEAKER) (test code = 761) HEMOGLOBIN (BEAKER) 5.0 GM/DL 11.2-15.7 LL (test code = 410) HEMATOCRIT (BEAKER) 13.6 % 34.1-44.9 L (test code = 411) MEAN CORPUSCULAR 85 fL 79-95 Discordant results VOLUME (BEAKER) compared to previous (test code = 753) results; c linical correlation requiredPatient received blood MEAN CORPUSCULAR 31.3 pg 25.6-32.2 HEMOGLOBIN (BEAKER) (test code = 751) MEAN CORPUSCULAR 36.8 GM/DL 32.2-35.5 H Specimen pr e-warmed to HEMOGLOBIN CONC 37 degrees C before (BEAKER) (test code testing to eliminate = 752) cold agglutinin interference. RED CELL 17.4 % 11.7-14.4 H DISTRIBUTION WIDTH (BEAKER) (test code = 412) PLATELET COUNT 86 K/CU MM 150-450 L (BEAKER) (test code = 756) MEAN PLATELET VOLUME 12.3 fL 9.4-12.3 (BEAKER) (test code = 754) NUCLEATED RED BLOOD 5 /100 WBC 0-0 H CELLS (BEAKER) (test code = 413) BASIC METABOLIC [id number] 08:49:20 Test Item Value Reference Range Interpretation Comments SODIUM (BEAKER) 133 meq/L 136-145 L (test code = 381) POTASSIUM 4.8 meq/L 3.5-5.1 (BEAKER) (test code = 379) CHLORIDE (BEAKER) 100 meq/L 98-107 (test code = 382) CO2 (BEAKER) 21 meq/L 22-29 L (test code = 355) BLOOD UREA 24 mg/dL 7-21 H NITROGEN (BEAKER) (test code = 354) CREATININE 1.19 mg/dL 0.57-1.25 (BEAKER) (test code = 358) GLUCOSE RANDOM 136 mg/dL 70-105 H (BEAKER) (test code = 652) CALCIUM (BEAKER) 8.7 mg/dL 8.4-10.2 (test code = 697) EGFR (BEAKER) 56 Interpretatio n of eGFR (test code = [...] not appl icable for dialysis patien ts Security Patrol Officer ID - MMSpecimen markedly ictericLACTIC ACID, [id number] 08:46:04 Test Item Value Reference Range Interpretation Comments LACTATE BLOOD ARTERIAL (2) 3.0 mmol/L 0.5-2.2 H (BEAKER) (test code = 2874) Security Patrol Officer ID - MMSpecimen markedly ictericSpecimen slightly lipemicBLOOD GAS, [id number] 08:10:37 Test Item Value Reference Range Interpretation Comments PH ARTERIAL (BEAKER) (test code = 7.44 7.35-7.45 383) PCO2 ARTERIAL (BEAKER) (test code 36 mm Hg 35-45 = 384) PO2 ARTERIAL (BEAKER) (test code = 131 mm Hg 80-90 H 385) O2 SATURATION ARTERIAL (BEAKER) 98.7 % 96.0-97.0 H (test code = 386) HCO3 ARTERIAL (BEAKER) (test code 24 mmol/L 21-29 = 388) BASE EXCESS ARTERIAL (BEAKER) 0.0 mmol/L -2.0-3.0 (test code = 387) PATIENT TEMPERATURE (BEAKER) (test 37.0 code = 1818) FIO2 (BEAKER) (test code = 1819) 50.0 POCT-GLUCOSE [id number] 06:33:14 Test Item Value Reference Range Interpretation Comments POC-GLUCOSE METER 145 mg/dL 70-110 H : Notified RN/MD: (BEAKER) (test code = TESTED AT [facility] 5814 4778) [facility], [id number]: Security Patrol Officer/Techni waylon ID = [id number] for SUDARSHAN ALLEN COMPREHENSIVE METABOLIC [id number] 05:34:47 Test Item Value Reference Range Interpretation Comments TOTAL PROTEIN 5.8 gm/dL 6.0-8.3 L (BEAKER) (test code = 770) ALBUMIN (BEAKER) 3.0 g/dL 3.5-5.0 L (test code = 1145) ALKALINE 593 U/L 40-150 H PHOSPHATASE (BEAKER) (test code = 346) BILIRUBIN TOTAL 15.8 mg/dL 0.2-1.2 H (BEAKER) (test code = 377) SODIUM (BEAKER) 136 meq/L 136-145 (test code = 381) POTASSIUM (BEAKER) 4.9 meq/L 3.5-5.1 (test code = 379) CHLORIDE (BEAKER) 101 meq/L 98-107 (test code = 382) CO2 (BEAKER) (test 20 meq/L 22-29 L code = 355) BLOOD UREA 23 mg/dL 7-21 H NITROGEN (BEAKER) (test code = 354) CREATININE 1.22 mg/dL 0.57-1.25 (BEAKER) (test code = 358) GLUCOSE RANDOM 139 mg/dL 70-105 H (BEAKER) (test code = 652) CALCIUM (BEAKER) 8.9 mg/dL 8.4-10.2 (test code = 697) AST (SGOT) > U/L 5-34 H (BEAKER) (test code = 353) ALT (SGPT) 1591 U/L 6-55 H (BEAKER) (test code = 347) EGFR (BEAKER) 54 Interpretatio n of eGFR (test code = [...] not appl icable for dialysis patien ts Security Patrol Officer ID - MMSpecimen slightly lipemicSpecimen markedly ictericLACTATE DEHYDROGENASE (LDH)2022-12-18 05:34:36 Test Item Value Reference Range Interpretation Comments LACTATE DEHYDROGENASE (BEAKER) (test 9175 U/L 125-220 H code = 635) Security Patrol Officer ID - MMOperator ID - [id number] 05:20:52 Test Item Value Reference Range Interpretation Comments PHOSPHORUS (BEAKER) (test code = 3.1 mg/dL 2.3-4.7 604) Security Patrol Officer ID - [id number] 05:20:51 Test Item Value Reference Range Interpretation Comments MAGNESIUM (BEAKER) (test code = 2.3 mg/dL 1.6-2.6 627) Security Patrol Officer ID - MMPOCT-GLUCOSE [id number] 04:43:04 Test Item Value Reference Range Interpretation Comments POC-GLUCOSE METER 153 mg/dL 70-110 H : TESTED A T [facility] 6720 (BEAKER) (test code = [place], 1538) [address]: Security Patrol Officer/Techni waylon ID = [id number] for SUDARSHAN ALLEN LACTIC ACID, [id number] 04:24:14 Test Item Value Reference Range Interpretation Comments LACTATE BLOOD ARTERIAL (2) 3.4 mmol/L 0.5-2.2 H (BEAKER) (test code = 2874) Security Patrol Officer ID - MMSpecimen moderately ictericSpecimen slightly lipemic1:1 MIXING STUDY, [id number] 04:22:50 Test Item Value Reference Range Interpretation Comments PROTIME (BEAKER) (test code = 21.7 seconds 11.9-14.2 H 759) PARTIAL THROMBOPLASTIN TIME 33.9 seconds 22.5-36.0 (BEAKER) (test code = 760) PT 1/1 MIX (BEAKER) (test code = 15.3 SECS 11.7-14.7 H 1595) PTT 1/1 MIX (BEAKER) (test code 46.5 SECS 22.5-36.0 H = 1596) [id number] 04:21:06 Test Item Value Reference Range Interpretation Comments PROTIME (BEAKER) (test code = 21.6 seconds 11.9-14.2 H 759) INR (BEAKER) (test code = 370) 1.94 <=5.90 PARTIAL THROMBOPLASTIN TIME 33.6 seconds 22.5-36.0 (BEAKER) (test code = 760) RECOMMENDED COUMADIN/WARFARIN INR THERAPY RANGESSTANDARD DOSE: 2.0 - 3.0 Includes: PROPHYLAXIS for venous thrombosis, systemic embolization; TREATMENT for venous thrombosis and/or pulmonary embolus.HIGH RISK: Target INR is 2.5-3.5 for patients with mechanical heart valves.[id number] 04:20:50 Test Item Value Reference Range Interpretation Comments FIBRINOGEN LEVEL (BEAKER) (test 387 mg/dl 225-434 code = 658) RETICULOCYTE [id number] 04:00:36 Test Item Value Reference Range Interpretation Comments RETICULOCYTE COUNT PCT (BEAKER) (test 4.8 % 0.5-1.7 H code = 575) Security Patrol Officer ID - [id number] ID - 6000BLOOD GAS, [id number] 03:58:48 Test Item Value Reference Range Interpretation Comments PH ARTERIAL (BEAKER) (test code = 7.41 7.35-7.45 383) PCO2 ARTERIAL (BEAKER) (test code 42 mm Hg 35-45 = 384) PO2 ARTERIAL (BEAKER) (test code = 155 mm Hg 80-90 H 385) O2 SATURATION ARTERIAL (BEAKER) 99.0 % 96.0-97.0 H (test code = 386) HCO3 ARTERIAL (BEAKER) (test code 26 mmol/L 21-29 = 388) BASE EXCESS ARTERIAL (BEAKER) 0.9 mmol/L -2.0-3.0 (test code = 387) PATIENT TEMPERATURE (BEAKER) (test 37.0 code = 1818) FIO2 (BEAKER) (test code = 1819) 70.0 CALCIUM, [id number] 03:58:42 Test Item Value Reference Range Interpretation Comments CALCIUM IONIZED (BEAKER) (test 1.12 mmol/L 1.12-1.27 code = 698) PH, BLOOD (BEAKER) (test code = 7.41 1810) POCT-GLUCOSE [id number] 01:25:39 Test Item Value Reference Range Interpretation Comments POC-GLUCOSE METER 171 mg/dL 70-110 H : [facility] ([facility]ER[facility] (test code = [place], 1538) [id number]: Security Patrol Officer/Techni waylon ID = [id number] for SUDARSHAN ALLEN LACTIC ACID, [id number] 00:11:06 Test Item Value Reference Range Interpretation Comments LACTATE BLOOD ARTERIAL (2) 5.0 mmol/L 0.5-2.2 HH (BEAKER) (test code = 2874) Security Patrol Officer ID - ADMINSpecimen markedly ictericSpecimen slightly lipemicBASIC METABOLIC [id number] 00:06:42 Test Item Value Reference Range Interpretation Comments SODIUM (BEAKER) 131 meq/L 136-145 L (test code = 381) POTASSIUM 4.5 meq/L 3.5-5.1 (BEAKER) (test code = 379) CHLORIDE (BEAKER) 96 meq/L 98-107 L (test code = 382) CO2 (BEAKER) 21 meq/L 22-29 L (test code = 355) BLOOD UREA 24 mg/dL 7-21 H NITROGEN (BEAKER) (test code = 354) CREATININE 1.16 mg/dL 0.57-1.25 (BEAKER) (test code = 358) GLUCOSE RANDOM 145 mg/dL 70-105 H (BEAKER) (test code = 652) CALCIUM (BEAKER) 8.6 mg/dL 8.4-10.2 (test code = 697) EGFR (BEAKER) 58 Interpretatio n of eGFR (test code = mL/min/1.73 values Stage De scription 1092) sq m Result G1 Norm al or high >=90 G2 Mildly decreased 60-89 [...] not appl icable for dialysis patien ts Security Patrol Officer ID - ADMINSpecimen markedly ictericBLOOD GAS, [id number] 23:38:48 Test Item Value Reference Range Interpretation Comments PH ARTERIAL (BEAKER) (test code = 7.42 7.35-7.45 383) PCO2 ARTERIAL (BEAKER) (test code 39 mm Hg 35-45 = 384) PO2 ARTERIAL (BEAKER) (test code 152 mm Hg 80-90 H = 385) O2 SATURATION ARTERIAL (BEAKER) 99.0 % 96.0-97.0 H (test code = 386) HCO3 ARTERIAL (BEAKER) (test code 24 mmol/L 21-29 = 388) BASE EXCESS ARTERIAL (BEAKER) -0.2 mmol/L -2.0-3.0 (test code = 387) PATIENT TEMPERATURE (BEAKER) 37.0 (test code = 1818) FIO2 (BEAKER) (test code = 1819) 80.0 POCT-GLUCOSE [id number] 23:38:16 Test Item Value Reference Range Interpretation Comments POC-GLUCOSE METER 161 mg/dL 70-110 H : TESTED A T [facility] 6720 (BEAKER) (test code = [place], 1538) [address]: Security Patrol Officer/Techni waylon ID = [id number] for SUDARSHAN ALLEN HEPATIC FUNCTION [id number] 21:44:06 Test Item Value Reference Range Interpretation Comments TOTAL PROTEIN (BEAKER) (test code 6.2 gm/dL 6.0-8.3 = 770) ALBUMIN (BEAKER) (test code = 3.3 g/dL 3.5-5.0 L 1145) BILIRUBIN TOTAL (BEAKER) (test 14.3 mg/dL 0.2-1.2 H code = 377) BILIRUBIN DIRECT (BEAKER) (test 6.5 mg/dL 0.1-0.5 H code = 706) ALKALINE PHOSPHATASE (BEAKER) 543 U/L 40-150 H (test code = 346) AST (SGOT) (BEAKER) (test code = > U/L 5-34 H 353) ALT (SGPT) (BEAKER) (test code = 1485 U/L 6-55 H 347) Security Patrol Officer ID - ADMINOperator ID - ADMINSpecimen markedly ictericSpecimen slightly lipemicCBC (HEMOGRAM ONLY)2022-12-17 21:14:29 Test Item Value Reference Range Interpretation Comments WHITE BLOOD CELL COUNT (BEAKER) 26.3 K/ L 3.5-10.5 H (test code = 775) RED BLOOD CELL COUNT (BEAKER) 1.54 M/ L 3.93-5.22 L (test code = 761) HEMOGLOBIN (BEAKER) (test code = 5.6 GM/DL 11.2-15.7 LL 410) HEMATOCRIT (BEAKER) (test code = 14.3 % 34.1-44.9 L 411) MEAN CORPUSCULAR VOLUME (BEAKER) 93 fL 79-95 (test code = 753) MEAN CORPUSCULAR HEMOGLOBIN 36.4 pg 25.6-32.2 H (BEAKER) (test code = 751) MEAN CORPUSCULAR HEMOGLOBIN CONC 39.2 GM/DL 32.2-35.5 H (BEAKER) (test code = 752) RED CELL DISTRIBUTION WIDTH 20.0 % 11.7-14.4 H (BEAKER) (test code = 412) PLATELET COUNT (BEAKER) (test 100 K/CU MM 150-450 L code = 756) MEAN PLATELET VOLUME (BEAKER) 13.1 fL 9.4-12.3 H (test code = 754) NUCLEATED RED BLOOD CELLS 6 /100 WBC 0-0 H (BEAKER) (test code = 413) BASIC METABOLIC [id number] 20:55:45 Test Item Value Reference Range Interpretation Comments SODIUM (BEAKER) 130 meq/L 136-145 L (test code = 381) POTASSIUM 4.6 meq/L 3.5-5.1 (BEAKER) (test code = 379) CHLORIDE (BEAKER) 95 meq/L 98-107 L (test code = 382) CO2 (BEAKER) 20 meq/L 22-29 L (test code = 355) BLOOD UREA 25 mg/dL 7-21 H NITROGEN (BEAKER) (test code = 354) CREATININE 1.35 mg/dL 0.57-1.25 H (BEAKER) (test code = 358) GLUCOSE RANDOM 131 mg/dL 70-105 H (BEAKER) (test code = 652) CALCIUM (BEAKER) 8.6 mg/dL 8.4-10.2 (test code = 697) EGFR (BEAKER) 48 Interpretatio n of eGFR (test code = [...] not appl icable for dialysis patien ts Security Patrol Officer ID - ADMINSpecimen markedly ictericLACTIC ACID, [id number] 20:42:59 Test Item Value Reference Range Interpretation Comments LACTATE BLOOD ARTERIAL (2) 6.9 mmol/L 0.5-2.2 HH (BEAKER) (test code = 2874) Security Patrol Officer ID - ADMINSpecimen moderately ictericSpecimen slightly lipemicMAGNESIUM 2022-12-17 20:34:58 Test Item Value Reference Range Interpretation Comments MAGNESIUM (BEAKER) (test code = 2.5 mg/dL 1.6-2.6 627) Security Patrol Officer ID - [id number] 20:34:58 Test Item Value Reference Range Interpretation Comments PHOSPHORUS (BEAKER) (test code = 3.5 mg/dL 2.3-4.7 604) Security Patrol Officer ID - ADMINCALCIUM, [id number] 20:16:00 Test Item Value Reference Range Interpretation Comments CALCIUM IONIZED (BEAKER) (test 1.05 mmol/L 1.12-1.27 L code = 698) PH, BLOOD (BEAKER) (test code = 7.43 1810) BLOOD GAS, [id number] 20:15:43 Test Item Value Reference Range Interpretation Comments PH ARTERIAL (BEAKER) (test code = 7.43 7.35-7.45 383) PCO2 ARTERIAL (BEAKER) (test code 36 mm Hg 35-45 = 384) PO2 ARTERIAL (BEAKER) (test code 93 mm Hg 80-90 H = 385) O2 SATURATION ARTERIAL (BEAKER) 97.3 % 96.0-97.0 H (test code = 386) HCO3 ARTERIAL (BEAKER) (test code 24 mmol/L 21-29 = 388) BASE EXCESS ARTERIAL (BEAKER) -0.1 mmol/L -2.0-3.0 (test code = 387) PATIENT TEMPERATURE (BEAKER) 37.0 (test code = 1818) FIO2 (BEAKER) (test code = 1819) 50.0 POCT-GLUCOSE [id number] 20:09:10 Test Item Value Reference Range Interpretation Comments POC-GLUCOSE METER 142 mg/dL 70-110 H : TESTED A T [facility] 6720 (BEAKER) (test code [facility], = 1538) [address]: Security Patrol Officer/Techni waylon ID = [id number] for SUGU , SHEENAMOL [id number] 19:23:57 Test Item Value Reference Range Interpretation Comments TRIGLYCERIDES (BEAKER) (test code = 317 mg/dL 540) TRIGLYCERIDE REFERENCE RANGELow Risk <150Borderline Risk 150-199High Risk 200-499Very High Risk >=500Operator ID - ADMINSpecimen moderately ictericSpecimen slightly lipemicU/S, RENAL, [id number] 18:35:00Reason for exam:->akiShould this be performed at the bedside?->Yes [facility] : 1975 Sex: FFINAL REPORT TECHNIQUE: Grayscale ultrasound of the kidneys and bladder. INDICATION: alissa. COMPARISON: Ultrasound from earlier the same day. FINDINGS: RIGHT KIDNEY: The right kidney measures 10.2 x 3.9 x 5.2 cm with a cortical thickness of 1.3 cm. Increased cortical echogenicity. No solid mass lesions. No hydronephrosis. Renal artery and vein are patent. LEFT KIDNEY: The left kidney measures 11 x 4.1 x 5.5 cm with a cortical thickness of 1.2 cm. Increased cortical echogenicity. No solid mass lesions. No hydronephrosis. Renal artery and vein are patent. BLADDER: Decompressed by a catheter. IMPRESSION: The increased cortical echogenicity is concerning for medical renal disease. No hydronephrosis Signed: Colt Thomas MDReport Verified Date/Time: 12/17/2022 18:35:00 [id number] 17:42:58 Test Item Value Reference Range Interpretation Comments FERRITIN (RHEA) (test code = 361) > ng/mL 5.00-275.00 H Security Patrol Officer ID - BSOperator ID - BSLACTIC ACID, [id number] 16:55:50 Test Item Value Reference Range Interpretation Comments LACTATE BLOOD ARTERIAL (2) 10.7 mmol/L 0.5-2.2 HH (BEAKER) (test code = 2874) Security Patrol Officer ID - BSSpecimen moderately ictericSpecimen slightly lipemicBASIC METABOLIC [id number] 16:51:41 Test Item Value Reference Range Interpretation Comments SODIUM (BEAKER) 142 meq/L 136-145 (test code = 381) POTASSIUM 5.1 meq/L 3.5-5.1 (BEAKER) (test code = 379) CHLORIDE (BEAKER) 103 meq/L 98-107 (test code = 382) CO2 (BEAKER) 18 meq/L 22-29 L (test code = 355) BLOOD UREA 26 mg/dL 7-21 H NITROGEN (BEAKER) (test code = 354) CREATININE 1.63 mg/dL 0.57-1.25 H (BEAKER) (test code = 358) GLUCOSE RANDOM 98 mg/dL 70-105 (BEAKER) (test code = 652) CALCIUM (BEAKER) 8.5 mg/dL 8.4-10.2 (test code = 697) EGFR (BEAKER) 38 Interpretatio n of eGFR (test code = [...] not appl icable for dialysis patien ts Security Patrol Officer ID - BSSpecimen moderately ictericIRON, TIBC, % SAT. (WITHOUT FERRITIN) 2022-12-17 16:49:01 Test Item Value Reference Range Interpretation Comments IRON (BEAKER) (test code = 547) 239.0 ug/dL 40.0-160.0 H TOTAL IRON BINDING CAPACITY 191 ug/dL 250-450 L (BEAKER) (test code = 769) IRON % SATURATION (2) (BEAKER) 125 % 20-55 H (test code = 2590) Security Patrol Officer ID - BSBLOOD GAS, [id number] 16:24:42 Test Item Value Reference Range Interpretation Comments PH ARTERIAL (BEAKER) (test code = 7.39 7.35-7.45 383) PCO2 ARTERIAL (BEAKER) (test code 35 mm Hg 35-45 = 384) PO2 ARTERIAL (BEAKER) (test code 119 mm Hg 80-90 H = 385) O2 SATURATION ARTERIAL (BEAKER) 98.3 % 96.0-97.0 H (test code = 386) HCO3 ARTERIAL (BEAKER) (test code 21 mmol/L 21-29 = 388) BASE EXCESS ARTERIAL (BEAKER) -3.5 mmol/L -2.0-3.0 L (test code = 387) PATIENT TEMPERATURE (BEAKER) 37.0 (test code = 1818) FIO2 (BEAKER) (test code = 1819) 50.0 CBC (HEMOGRAM ONLY)2022-12-17 14:07:47 Test Item Value Reference Range Interpretation Comments WHITE BLOOD CELL COUNT (BEAKER) 27.1 K/ L 3.5-10.5 H (test code = 775) RED BLOOD CELL COUNT (BEAKER) 1.86 M/ L 3.93-5.22 L (test code = 761) HEMOGLOBIN (BEAKER) (test code = 5.8 GM/DL 11.2-15.7 LL 410) HEMATOCRIT (BEAKER) (test code = 16.7 % 34.1-44.9 L 411) MEAN CORPUSCULAR VOLUME (BEAKER) 90 fL 79-95 (test code = 753) MEAN CORPUSCULAR HEMOGLOBIN 31.2 pg 25.6-32.2 (BEAKER) (test code = 751) MEAN CORPUSCULAR HEMOGLOBIN CONC 34.7 GM/DL 32.2-35.5 (BEAKER) (test code = 752) RED CELL DISTRIBUTION WIDTH 17.2 % 11.7-14.4 H (BEAKER) (test code = 412) PLATELET COUNT (BEAKER) (test code 99 K/CU MM 150-450 L = 756) MEAN PLATELET VOLUME (BEAKER) 12.6 fL 9.4-12.3 H (test code = 754) NUCLEATED RED BLOOD CELLS (BEAKER) 6 /100 WBC 0-0 H (test code = 413) PERIPHERAL BLOOD SMEAR - HOLD [id number] 13:57:34 Test Item Value Reference Range Interpretation Comments PERIPHERAL SMEAR SAVE (BEAKER) (test saved code = 1815) PERIPHERAL BLOOD SMEAR - PATHOLOGIST [id number] 13:54:29 Test Item Value Reference Range Interpretation Comments PERIPHERAL SMR REVIEW Leukocytosis with left (BEAKER) (test code = shift, and less than 1% 2640) blasts. Macrocytic anemia with anisocytosis and polychromasia. Few nucleated red blood cells. Decreased platelets, no significant clumping/satellitism seen. [id number] Maritza Breen (BEAKER) (test code = Lico Sparks 6313) COMPLEMENT COMPONENT [id number] 12:46:34 Test Item Value Reference Range Interpretation Comments C4 COMPLEMENT (BEAKER) (test code = 5 mg/dL 15-57 L 394) Security Patrol Officer ID - ADMINCOMPLEMENT COMPONENT [id number] 12:46:34 Test Item Value Reference Range Interpretation Comments C3 COMPLEMENT (BEAKER) (test code = 43 mg/dL 82-193 L 393) Security Patrol Officer ID - ADMINBASIC METABOLIC [id number] 12:45:58 Test Item Value Reference Range Interpretation Comments SODIUM (BEAKER) 145 meq/L 136-145 (test code = 381) POTASSIUM 5.4 meq/L 3.5-5.1 H Specimen slight ly (BEAKER) (test hemolyzed code = 379) CHLORIDE (BEAKER) 103 meq/L 98-107 (test code = 382) CO2 (BEAKER) 17 meq/L 22-29 L (test code = 355) BLOOD UREA 29 mg/dL 7-21 H NITROGEN (BEAKER) (test code = 354) CREATININE 1.92 mg/dL 0.57-1.25 H Specimen slight ly (BEAKER) (test hemolyzed code = 358) GLUCOSE RANDOM 80 mg/dL 70-105 (BEAKER) (test code = 652) CALCIUM (BEAKER) 8.8 mg/dL 8.4-10.2 (test code = 697) EGFR (BEAKER) 32 Interpretatio n of eGFR (test code = mL/min/1.73 values Stage D escription 1092) sq m Result G1 Veronica l [...] not appl icable for dialysis patien ts Security Patrol Officer ID - AAHAMIDSpecimen moderately [id number] 12:45:57 Test Item Value Reference Range Interpretation Comments MAGNESIUM (BEAKER) 3.1 mg/dL 1.6-2.6 H Specimen slightly (test code = 627) hemolyzed Security Patrol Officer ID - [id number] 12:45:57 Test Item Value Reference Range Interpretation Comments PHOSPHORUS (BEAKER) 4.4 mg/dL 2.3-4.7 Specimen slightly (test code = 604) hemolyzed Security Patrol Officer ID - AAHAMIDLACTIC ACID, [id number] 12:42:09 Test Item Value Reference Range Interpretation Comments LACTATE BLOOD ARTERIAL > mmol/L 0.5-2.2 HH Speci men slightly (2) (BEAKER) (test hemolyzed code = 2874) Security Patrol Officer ID - AAHAMIDSpecimen moderately ictericSpecimen slightly lipemicBLOOD GAS, [id number] 12:21:46 Test Item Value Reference Range Interpretation Comments PH ARTERIAL (BEAKER) (test code = 7.39 7.35-7.45 383) PCO2 ARTERIAL (BEAKER) (test code 34 mm Hg 35-45 L = 384) PO2 ARTERIAL (BEAKER) (test code 118 mm Hg 80-90 H = 385) O2 SATURATION ARTERIAL (BEAKER) 98.3 % 96.0-97.0 H (test code = 386) HCO3 ARTERIAL (BEAKER) (test code 20 mmol/L 21-29 L = 388) BASE EXCESS ARTERIAL (BEAKER) -3.7 mmol/L -2.0-3.0 L (test code = 387) PATIENT TEMPERATURE (BEAKER) 37.0 (test code = 1818) FIO2 (BEAKER) (test code = 1819) 21.0 CALCIUM, [id number] 12:21:46 Test Item Value Reference Range Interpretation Comments CALCIUM IONIZED (BEAKER) (test 1.06 mmol/L 1.12-1.27 L code = 698) PH, BLOOD (BEAKER) (test code = 7.39 1810) 2D Echo W/Doppler(CW/PW/Color)2022-12-17 11:07:13Ejection FractionSLEH ECHO HEARTLAB MKCKESSON [facility] 2022-12-17 10:27:00 Test Item Value Reference Range Interpretation Comments SODIUM (BEAKER) 147 meq/L 136-145 H (test code = 381) POTASSIUM 5.1 meq/L 3.5-5.1 Specimen slight ly (BEAKER) (test hemolyzed code = 379) CHLORIDE (BEAKER) 104 meq/L 98-107 (test code = 382) CO2 (BEAKER) 19 meq/L 22-29 L (test code = 355) BLOOD UREA 30 mg/dL 7-21 H NITROGEN (BEAKER) (test code = 354) CREATININE 2.09 mg/dL 0.57-1.25 H Specimen slight ly (BEAKER) (test hemolyzed code = 358) GLUCOSE RANDOM 69 mg/dL 70-105 L (BEAKER) (test code = 652) CALCIUM (BEAKER) 9.0 mg/dL 8.4-10.2 (test code = 697) EGFR (BEAKER) 29 Interpretatio n of eGFR (test code = [...] not appl icable for dialysis patien ts Security Patrol Officer ID - NEIL GSpecimen markedly ictericRespiratory Panel [id number] 09:54:15 Test Item Value Reference Range Interpretation Comments Human Metapneumovirus Not detected Not detected, (test code = 53585-8) Equivocal Rhinovirus (test code = Not detected Not detected, 59392-8) Equivocal INFLUENZA A (NO Not detected Not detected, SUBTYPE) (test code = Equivocal 43062-1) Influenza A subtype H1 (test code = 17301-5) Influenza A Subtype H3 (test code = 69484-2) Influenza A Subtype H1-2009 (test code = 57822-8) Influenza B (test code Not detected Not detected, = 36814-3) Equivocal Respiratory Syncytial Not detected Not detected, Virus (test code = Equivocal 47402-0) Parainfluenza Virus 1 Not detected Not detected, (test code = 59573-6) Equivocal Parainfluenza Virus 2 Not detected Not detected, (test code = 90251-7) Equivocal Parainfluenza virus 3 Not detected Not detected, (test code = 98869-2) Equivocal Parainfluenza Virus 4 Not detected Not detected, (test code = 37637-7) Equivocal Adenovirus (test code = Not detected Not detected, 25086-9) Equivocal Coronavirus 229E (test Not detected Not detected, code = 22744-6) Equivocal Coronavirus HKU1 (test Not detected Not detected, code = 86468-6) Equivocal Coronavirus NL63 (test Not detected Not detected, code = 56900-4) Equivocal Coronavirus OC43 (test Not detected Not detected, code = 27504-6) Equivocal Bordetella Pertussis Not detected Not detected, (test code = 87569-7) Equivocal Chlamydophila Not detected Not detected, Pneumoniae (test code = Equivocal 35392-0) Mycoplasma Pneumoniae Not detected Not detected, (test code = 48027-7) Equivocal Severe Acute Not detected Not detected, Joureosqenh-EnI-1 (test Equivocal code = 19298-8) Bordtella Parapertussis Not detected Not detected, (test code = 25371-2) Equivocal AREN (test code = AREN) Other viruses and bacteria not targeted by this PCR panel cannot be excluded; therefore clinical correlation and follow up of serology, culture results, and other molecular studies is required. The results are not intended to be used as the sole means for clinical diagnosis or patient management decisions. This sample was tested at the [facility] using the LoyalzooArray Respiratory Panel. It is FDA cleared and has been verified and approved by the [facility] for clinical use on nasopharyngeal swab specimens. The performance of the FilmArray RP has not been established in individuals who received influenza vaccine. Recent administration of a nasal influenza vaccine may cause false positive results for Influenza A and/orInfluenza B. [facility] [id number] 09:54:15 Test Item Value Reference Range Interpretation Comments HUMAN METAPNEUMOVIRUS Not detected Not detected, (BEAKER) (test code = 2683) Equivocal RHINOVIRUS (BEAKER) (test Not detected Not detected, code = 2684) Equivocal INFLUENZA A (BEAKER) (test Not detected Not detected, code = 2685) Equivocal INFLUENZA A (NO SUBTYPE) (test code = 3606) INFLUENZA A SUBTYPE H1 (BEAKER) (test code = 2686) INFLUENZA A SUBTYPE H3 (BEAKER) (test code = 2687) INFLUENZA A SUBTYPE H1-2009 (BEAKER) (test code = 3198) INFLUENZA B (BEAKER) (test Not detected Not detected, code = 2688) Equivocal RESPIRATORY SYNCYTIAL VIRUS Not detected Not detected, (BEAKER) (test code = 3199) Equivocal PARAINFLUENZA VIRUS 1 Not detected Not detected, (BEAKER) (test code = 2691) Equivocal PARAINFLUENZA VIRUS 2 Not detected Not detected, (BEAKER) (test code = 2692) Equivocal PARAINFLUENZA VIRUS 3 Not detected Not detected, (BEAKER) (test code = 2693) Equivocal PARAINFLUENZA VIRUS 4 Not detected Not detected, (BEAKER) (test code = 3200) Equivocal ADENOVIRUS (BEAKER) (test Not detected Not detected, code = 2694) Equivocal CORONAVIRUS 229E (BEAKER) Not detected Not detected, (test code = 3201) Equivocal CORONAVIRUS HKU1 (BEAKER) Not detected Not detected, (test code = 3202) Equivocal CORONAVIRUS NL63 (BEAKER) Not detected Not detected, (test code = 3203) Equivocal CORONAVIRUS OC43 (BEAKER) Not detected Not detected, (test code = 3204) Equivocal BORDETELLA PERTUSSIS Not detected Not detected, (BEAKER) (test code = 3205) Equivocal CHLAMYDOPHILA PNEUMONIAE Not detected Not detected, (BEAKER) (test code = 3206) Equivocal MYCOPLASMA PNEUMONIAE Not detected Not detected, (BEAKER) (test code = 3207) Equivocal SEVERE ACUTE RESPIRATORY Not detected Not detected, [id number] Equivocal (test code = 0036973) BORDETELLA PARAPERTUSSIS Not detected Not detected, (BKR) (test code = 2724239) Equivocal Other viruses and bacteria not targeted by this PCR panel cannot be excluded; therefore clinical correlation and follow up of serology, culture results, and other molecular studies is required. The results are not intended to be used as the sole means for clinical diagnosis or patient management decisions. This sample was tested at the [facility] using the LoyalzooArray Respiratory Panel. It is FDA cleared and has been verified and approved by the [facility] for clinical use on nasopharyngeal swab specimens.The performance of the FilmArrayRP has not been established in individuals who received influenza vaccine. Recent administration of a nasal influenza vaccine may cause false positive results for Influenza A and/orInfluenza B.LACTIC ACID, [id number] 09:02:56 Test Item Value Reference Range Interpretation Comments LACTATE BLOOD ARTERIAL > mmol/L 0.5-2.2 HH Speci men slightly (2) (BEAKER) (test hemolyzed code = 2874) Security Patrol Officer ID - NEIL GSpecimen markedly ictericSpecimen slightly lipemicBLOOD GAS, [id number] 08:43:26 Test Item Value Reference Range Interpretation Comments PH ARTERIAL (BEAKER) (test code = 7.39 7.35-7.45 383) PCO2 ARTERIAL (BEAKER) (test code 37 mm Hg 35-45 = 384) PO2 ARTERIAL (BEAKER) (test code 222 mm Hg 80-90 H = 385) O2 SATURATION ARTERIAL (BEAKER) 99.5 % 96.0-97.0 H (test code = 386) HCO3 ARTERIAL (BEAKER) (test code 22 mmol/L 21-29 = 388) BASE EXCESS ARTERIAL (BEAKER) -2.4 mmol/L -2.0-3.0 L (test code = 387) PATIENT TEMPERATURE (BEAKER) 37.0 (test code = 1818) FIO2 (BEAKER) (test code = 1819) 70.0 POCT-GLUCOSE [id number] 07:00:32 Test Item Value Reference Range Interpretation Comments POC-GLUCOSE METER 83 mg/dL 70-110 : TESTED A T [facility] 6720 (BEAKER) (test code = [place], 1538) [address]: Security Patrol Officer/Techni waylon ID = [id number] for ELAINE MORRIS COMPREHENSIVE METABOLIC [id number] 06:32:08 Test Item Value Reference Range Interpretation Comments TOTAL PROTEIN 5.3 gm/dL 6.0-8.3 L Specimen sligh tly (BEAKER) (test hemolyzed code = 770) ALBUMIN (BEAKER) 3.3 g/dL 3.5-5.0 L Specimen sl ightly (test code = 1145) hemolyzed ALKALINE 424 U/L 40-150 H PHOSPHATASE (BEAKER) (test code = 346) BILIRUBIN TOTAL 18.4 mg/dL 0.2-1.2 H Specimen sli ghtly (BEAKER) (test hemolyzed code = 377) SODIUM (BEAKER) 154 meq/L 136-145 H (test code = 381) POTASSIUM (BEAKER) 5.5 meq/L 3.5-5.1 H Specimen slightly (test code = 379) hemolyzed CHLORIDE (BEAKER) 104 meq/L 98-107 (test code = 382) CO2 (BEAKER) (test 17 meq/L 22-29 L code = 355) BLOOD UREA 37 mg/dL 7-21 H NITROGEN (BEAKER) (test code = 354) CREATININE 2.72 mg/dL 0.57-1.25 H Specimen slight ly (BEAKER) (test hemolyzed code = 358) GLUCOSE RANDOM 94 mg/dL 70-105 (BEAKER) (test code = 652) CALCIUM (BEAKER) 7.6 mg/dL 8.4-10.2 L (test code = 697) AST (SGOT) 2970 U/L 5-34 H Specimen slight ly (BEAKER) (test hemolyzed code = 353) ALT (SGPT) 860 U/L 6-55 H Specimen slight ly (BEAKER) (test hemolyzed code = 347) EGFR (BEAKER) 21 Interpretatio n of eGFR (test code = [...] not appl icable for dialysis patien ts Security Patrol Officer ID - ADMINOperator ID - ADMINSpecimen markedly ictericPROCALCITONIN 2022-12-17 06:20:10 Test Item Value Reference Range Interpretation Comments PROCALCITONIN (BEAKER) (test code 57.72 ng/mL <0.05 HH = 3036) SEPSIS RISK (ng/mL)Low: 0.05-0.50Intermediate: 0.51-2.00High: >=2.01AMMONIA 2022-12-17 06:19:34 Test Item Value Reference Range Interpretation Comments AMMONIA (BEAKER) 147 mol/L 18-72 H Specimen sl ightly (test code = 348) hemolyzed Security Patrol Officer ID - NEIL GOperator ID - NEIL GRETICULOCYTE [id number] 06:14:58 Test Item Value Reference Range Interpretation Comments RETICULOCYTE COUNT PCT (BEAKER) (test 4.5 % 0.5-1.7 H code = 575) Security Patrol Officer ID - [id number] ID - [id number] W/PLT COUNT & AUTO DIFFERENTIAL 2022-12-17 06:14:57 Test Item Value Reference Range Interpretation Comments WHITE BLOOD CELL COUNT 31.0 K/ L 3.5-10.5 H (BEAKER) (test code = 775) RED BLOOD CELL COUNT 1.78 M/ L 3.93-5.22 L (BEAKER) (test code = 761) HEMOGLOBIN (BEAKER) 5.6 GM/DL 11.2-15.7 LL (test code = 410) HEMATOCRIT (BEAKER) 16.9 % 34.1-44.9 L (test code = 411) MEAN CORPUSCULAR 95 fL 79-95 Discordant results VOLUME (BEAKER) (test compar ed to previous code = 753) results; clinic al correlation req uired MEAN CORPUSCULAR 31.5 pg 25.6-32.2 HEMOGLOBIN (BEAKER) (test code = 751) MEAN CORPUSCULAR 33.1 GM/DL 32.2-35.5 Specimen pr e-warmed HEMOGLOBIN CONC to 37 degree s C (BEAKER) (test code = before testing to 752) eliminate cold agglutinin interference. RED CELL DISTRIBUTION 17.4 % 11.7-14.4 H WIDTH (BEAKER) (test code = 412) PLATELET COUNT 103 K/CU MM 150-450 L (BEAKER) (test code = 756) MEAN PLATELET VOLUME 12.4 fL 9.4-12.3 H (BEAKER) (test code = 754) NUCLEATED RED BLOOD 5 /100 WBC 0-0 H CELLS (BEAKER) (test code = 413) BLOOD GAS, [id number] 06:08:18 Test Item Value Reference Range Interpretation Comments PH ARTERIAL (BEAKER) (test code = 7.37 7.35-7.45 383) PCO2 ARTERIAL (BEAKER) (test code 39 mm Hg 35-45 = 384) PO2 ARTERIAL (BEAKER) (test code 224 mm Hg 80-90 H = 385) O2 SATURATION ARTERIAL (BEAKER) 99.5 % 96.0-97.0 H (test code = 386) HCO3 ARTERIAL (BEAKER) (test code 22 mmol/L 21-29 = 388) BASE EXCESS ARTERIAL (BEAKER) -2.8 mmol/L -2.0-3.0 L (test code = 387) PATIENT TEMPERATURE (BEAKER) 37.0 (test code = 1818) FIO2 (BEAKER) (test code = 1819) 100.0 [id number] 06:00:13 Test Item Value Reference Range Interpretation Comments PARTIAL THROMBOPLASTIN TIME 35.6 seconds 22.5-36.0 (BEAKER) (test code = 760) PROTHROMBIN [id number] 05:59:50 Test Item Value Reference Range Interpretation Comments PROTIME (BEAKER) (test code = 28.5 seconds 11.9-14.2 H 759) INR (BEAKER) (test code = 370) 2.89 <=5.90 RECOMMENDED COUMADIN/WARFARIN INR THERAPY RANGESSTANDARD DOSE: 2.0 - 3.0 Includes: PROPHYLAXIS for venous thrombosis, systemic embolization; TREATMENT for venous thrombosis and/or pulmonary embolus.HIGH RISK: Target INR is 2.5-3.5 for patients with mechanical heart valves.LACTATE DEHYDROGENASE (LDH)2022-12-17 05:44:11 Test Item Value Reference Range Interpretation Comments LACTATE DEHYDROGENASE 6820 U/L 125-220 H Specim en slightly (BEAKER) (test code = hemoly zed 635) Security Patrol Officer ID - ADMINOperator ID - [id number] 05:43:48 Test Item Value Reference Range Interpretation Comments PHOSPHORUS (BEAKER) 8.2 mg/dL 2.3-4.7 H Specimen slightly (test code = 604) hemolyzed Security Patrol Officer ID - ADMINBILIRUBIN, [id number] 05:43:48 Test Item Value Reference Range Interpretation Comments BILIRUBIN DIRECT 9.0 mg/dL 0.1-0.5 H Specimen sl ightly (BEAKER) (test code = hemoly zed 706) Security Patrol Officer ID - [id number] 05:43:47 Test Item Value Reference Range Interpretation Comments MAGNESIUM (BEAKER) 4.3 mg/dL 1.6-2.6 H Specimen slightly (test code = 627) hemolyzed Security Patrol Officer ID - [id number] 05:42:45 Test Item Value Reference Range Interpretation Comments HAPTOGLOBIN (BEAKER) (test code = < mg/dL 14-258 L 366) Security Patrol Officer ID - ADMINHIGH SENSITIVITY TROPONIN [id number] 05:42:22 Test Item Value Reference Range Interpretation Comments HIGH SENSITIVITY TROPONIN I (test 698 pg/ml <=17 HH code = 4594349) Security Patrol Officer ID - ADMINThe COOKING TEACHER STAT High Sensitivity Troponin-I results should be used in conjunction with other diagnostic information such as ECG, clinical observations and information, and patientsymptoms to aid in the diagnosis of SD. LACTIC ACID, [id number] 05:24:49 Test Item Value Reference Range Interpretation Comments LACTATE BLOOD ARTERIAL > mmol/L 0.5-2.2 HH Speci men slightly (2) (BEAKER) (test hemolyzed code = 2874) Security Patrol Officer ID - NEIL GSpecimen markedly ictericCALCIUM, [id number] 05:23:14 Test Item Value Reference Range Interpretation Comments CALCIUM IONIZED (BEAKER) (test 0.87 mmol/L 1.12-1.27 L code = 698) PH, BLOOD (BEAKER) (test code = 7.37 1810) U/S, ABDOMINAL, [id number] 04:54:00Abdomen limited area? Add comment if clarification is needed.->Right upper quadrantReason for exam:->With Dopplers for elevated liver enzymesShould this be performed at the bedside?->YesS[facility] : 1975 Sex: FFINAL REPORT History: With Dopplers for elevated liver enzymes Abdominal ultrasound dated 12/18/2019 Comparison: None Comment: Real-time transabdominal ultrasound of the right upper quadrant abdomen was performed. Liver: 21.5 cm , enlarged. Normal echogenicity. No focal lesions. Gallbladder: Absent. Biliary tree: No intrahepatic ductal dilatation. CBD: 5 mm. Pancreas: Unremarkable. Right kidney: 12.2 x 4.5 x 6.2 cm. Normal echogenicity. No ascites is present in the abdomen. Real-time Fountain scale, color and spectral doppler ultrasound of the abdomen was performed to evaluate visceral blood flow. Main portal vein measures 1.3 cm in diameter. There is hepatopetal flow in the main portal vein with velocity 20.5 cm/sec. The right and left intrahepatic portal veins are patent with hepatopetal flow. Proper hepatic artery, right hepatic artery, and left hepatic artery are patent withresistive indices 0.6, 0.6, and 0.6 respectively. IVC, Hepatic venous confluence, right HV, middle HV and left HV are patent with appropriate flow. The visualized abdominal aorta is normal in caliber. I mpression: Hepatomegaly. Prior cholecystectomy. Unremarkable abdominal Doppler evaluation with normal directional flow. Signed: Araceli Macario MDReport Verified Date/Time: 12/17/2022 04:54:05 BLOOD GAS, [id number] 04:33:17 Test Item Value Reference Range Interpretation Comments PH ARTERIAL (BEAKER) (test code = 7.26 7.35-7.45 L 383) PCO2 ARTERIAL (BEAKER) (test code 41 mm Hg 35-45 = 384) PO2 ARTERIAL (BEAKER) (test code 138 mm Hg 80-90 H = 385) O2 SATURATION ARTERIAL (BEAKER) 98.3 % 96.0-97.0 H (test code = 386) HCO3 ARTERIAL (BEAKER) (test code 18 mmol/L 21-29 L = 388) BASE EXCESS ARTERIAL (BEAKER) -8.2 mmol/L -2.0-3.0 L (test code = 387) PATIENT TEMPERATURE (BEAKER) 37.5 (test code = 1818) FIO2 (BEAKER) (test code = 1819) 100.0 BILIRUBIN, [id number] 04:32:50 Test Item Value Reference Range Interpretation Comments BILIRUBIN DIRECT 8.3 mg/dL 0.1-0.5 H Specimen sl ightly (BEAKER) (test code = hemoly zed 706) Security Patrol Officer ID - NEIL GSpecimen slightly lipemicVITAMIN [id number] 03:53:21 Test Item Value Reference Range Interpretation Comments VITAMIN B12 (BEAKER) (test code = > pg/mL 213-816 H 774) Security Patrol Officer ID - NEIL GRAD, CHEST, 1 VIEW, NON [id number] 03:31:00Reason for exam:->Line insertionShould this be performed at the bedside?->YesIs the patient ?->No [facility] : 1975 Sex: FFINAL REPORT CLINICAL INDICATION: Line insertion Comparison: 12/16/2022 A rightIJ CVC tip overlies the SVC without associated pneumothorax or hematoma. The cardiomediastinal contours are stable. There is stable elevation of the right hemidiaphragm. Central vascular prominence andbilateral interstitial coarsening and vague retrocardiac opacity is similar to previous and may reflect a combination of atelectasis and edema. Pneumonitis should be excluded clinically. Signed: Araceli Macario MDReport Verified Date/Time: 12/17/2022 03:31:29 D GAS, [id number] 03:12:07 Test Item Value Reference Range Interpretation Comments PH ARTERIAL (BEAKER) (test code = 7.34 7.35-7.45 L 383) PCO2 ARTERIAL (BEAKER) (test code 30 mm Hg 35-45 L = 384) PO2 ARTERIAL (BEAKER) (test code 222 mm Hg 80-90 H = 385) O2 SATURATION ARTERIAL (BEAKER) 99.4 % 96.0-97.0 H (test code = 386) HCO3 ARTERIAL (BEAKER) (test code 16 mmol/L 21-29 L = 388) BASE EXCESS ARTERIAL (BEAKER) -9.3 mmol/L -2.0-3.0 L (test code = 387) PATIENT TEMPERATURE (BEAKER) 37.5 (test code = 1818) FIO2 (BEAKER) (test code = 1819) 100.0 CBC W/PLT COUNT & AUTO [id number] 02:25:52 Test Item Value Reference Range Interpretation Comments WHITE BLOOD CELL COUNT 45.1 K/ L 3.5-10.5 H (BEAKER) (test code = 775) RED BLOOD CELL COUNT 2.14 M/ L 3.93-5.22 L (BEAKER) (test code = 761) HEMOGLOBIN (BEAKER) 7.0 GM/DL 11.2-15.7 L (test code = 410) HEMATOCRIT (BEAKER) 21.9 % 34.1-44.9 L (test code = 411) MEAN CORPUSCULAR 102 fL 79-95 H VOLUME (BEAKER) (test code = 753) MEAN CORPUSCULAR 32.7 pg 25.6-32.2 H HEMOGLOBIN (BEAKER) (test code = 751) MEAN CORPUSCULAR 32.0 GM/DL 32.2-35.5 L Specimen pr e-warmed HEMOGLOBIN CONC to 37 degree s C (BEAKER) (test code = before testing to 752) eliminate cold agglutinin interference. RED CELL DISTRIBUTION 17.2 % 11.7-14.4 H WIDTH (BEAKER) (test code = 412) PLATELET COUNT 136 K/CU MM 150-450 L (BEAKER) (test code = 756) MEAN PLATELET VOLUME 12.5 fL 9.4-12.3 H (BEAKER) (test code = 754) NUCLEATED RED BLOOD 4 /100 WBC 0-0 H CELLS (BEAKER) (test code = 413) (MANUAL DIFFERENTIAL)2022-12-17 02:25:52 Test Item Value Reference Range Interpretation Comments NEUTROPHILS - REL (DIFF) (BEAKER) 53 % (test code = 1359) LYMPHOCYTES - REL (DIFF) (BEAKER) 12 % (test code = 1360) MONOCYTES - REL (DIFF) (BEAKER) 3 % (test code = 1361) BASOPHILS - REL (DIFF) (BEAKER) 1 % (test code = 1363) METAMYELOCYTES-REL (DIFF) (BEAKER) 2 % 0-0 H (test code = 258) MYELOCYTES-REL (DIFF) (BEAKER) 3 % 0-0 H (test code = 1594) PROMYELOCYTES-REL (DIFF) (BEAKER) 1 % 0-0 H (test code = 259) BANDS - REL (DIFF) (BEAKER) (test 23 % 0-10 H code = 1348) BLASTS - REL (DIFF) (BEAKER) (test 1 % 0-0 H code = 1358) ATYPICAL LYMPHOCYTE - REL (DIFF) 1 % 0-0 H (BEAKER) (test code = 260) NEUTROPHILS - ABS (DIFF) (BEAKER) 23.90 K/ L 1.80-8.00 H (test code = 1365) LYMPHOCYTES - ABS (DIFF) (BEAKER) 5.41 K/ L 1.48-4.50 H (test code = 1366) MONOCYTES - ABS (DIFF) (BEAKER) 1.35 K/ L 0.00-1.30 H (test code = 1367) BASOPHILS - ABS (DIFF) (BEAKER) 0.45 K/ L 0.00-0.20 H (test code = 1369) METAMYELOCTYES - ABS (DIFF) 0.90 K/ L 0.00-0.00 H (BEAKER) (test code = 261) PROMYELOCYTES - ABS (DIFF) 0.45 K/ L 0.00-0.00 H (BEAKER) (test code = 262) BANDS-ABS (DIFF) (BEAKER) (test 10.4 K/ L 0.0-0.8 H code = 1349) BLASTS - ABS (DIFF) (BEAKER) (test 0.45 K/ L 0.00-0.00 H code = 1350) ATYPICAL LYMPHOCYTES - ABS (DIFF) 0.45 K/ L 0.00-0.00 H (BEAKER) (test code = 263) MYELOCYTES-ABS (DIFF) (BEAKER) 1.35 K/ L 0.00-0.00 H (test code = 1593) TOTAL COUNTED (BEAKER) (test code 100 = 1351) BANDS + SEGMENTED NEUTROPHILS 34.28 (BEAKER) (test code = 1352) MANUAL NRBC PER 100 CELLS (BEAKER) 4 /100 WBC 0-0 H (test code = 1353) SMUDGE CELLS (BEAKER) (test code = Present 1371) DOHLE BODIES (BEAKER) (test code = Present 359) VACUOLATED NEUTROPHILS (BEAKER) Present (test code = 483) ABNORMAL PLT FORMS(BEAKER) (test Present code = 2159) GIANT PLATELETS (BEAKER) (test Present code = 313) ANISOCYTOSIS (BEAKER) (test code = 1+ few 961) POLYCHROMATOPHILLIC RBCS(BEAKER) 1+ few (test code = 478) Agglutination present consistent with cold agglutinin.Rare erythrophagocytosis present.TSH/FREE T4 IF [id number] 02:08:01 Test Item Value Reference Range Interpretation Comments THYROID STIMULATING HORMONE 1.872 uIU/mL 0.350-4.940 (BEAKER) (test code = 772) Security Patrol Officer ID - ADMINBASIC METABOLIC [id number] 01:42:48 Test Item Value Reference Range Interpretation Comments SODIUM (BEAKER) 148 meq/L 136-145 H (test code = 381) POTASSIUM 5.6 meq/L 3.5-5.1 H Specimen slight ly (BEAKER) (test hemolyzed code = 379) CHLORIDE (BEAKER) 105 meq/L 98-107 (test code = 382) CO2 (BEAKER) 7 meq/L 22-29 LL (test code = 355) BLOOD UREA 33 mg/dL 7-21 H NITROGEN (BEAKER) (test code = 354) CREATININE 2.74 mg/dL 0.57-1.25 H Specimen slight ly (BEAKER) (test hemolyzed code = 358) GLUCOSE RANDOM 188 mg/dL 70-105 H (BEAKER) (test code = 652) CALCIUM (BEAKER) 7.8 mg/dL 8.4-10.2 L (test code = 697) EGFR (BEAKER) 21 Interpretatio n of eGFR (test code = mL/min/1.73 values Stage De scription 1092) sq m Result G1 Veronica l or high >=90 G2 Mildly decreased 60-89 G3a Mildl y to moderately 45-5 9 G3b Moderately to s everely 30-44 G4 Sever ly decreased 15-29 G5 Kidney failure <15Repo rted eGFR is based on the CKD-EPI 2020 equation t hat does not use a race coefficientEsti mated GFR is not as accur ate as Creatinine Katelyn lovett in predicting glom erular filtration rate . Estimated GFR is not appl icable for dialysis patien ts Security Patrol Officer ID - ADMINSpecimen markedly [id number] 01:28:07 Test Item Value Reference Range Interpretation Comments FIBRINOGEN LEVEL (BEAKER) (test code < mg/dl 225-434 LL = 658) [id number] 01:23:18 Test Item Value Reference Range Interpretation Comments D-DIMER QUANTITATIVE (BEAKER) 0.48 MG/L FEU <0.50 (test code = 671) Intended Use: The [...] the exclusion of thrombosis is within 95-100% range.BLOOD GAS, [id number] 00:32:35 Test Item Value Reference Range Interpretation Comments PH ARTERIAL (BEAKER) (test code 7.19 7.35-7.45 LL = 383) PCO2 ARTERIAL (BEAKER) (test 28 mm Hg 35-45 L code = 384) PO2 ARTERIAL (BEAKER) (test code 213 mm Hg 80-90 H = 385) O2 SATURATION ARTERIAL (BEAKER) 99.2 % 96.0-97.0 H (test code = 386) HCO3 ARTERIAL (BEAKER) (test 10 mmol/L 21-29 LL code = 388) BASE EXCESS ARTERIAL (BEAKER) -16.4 mmol/L -2.0-3.0 L (test code = 387) PATIENT TEMPERATURE (BEAKER) 36.5 (test code = 1818) FIO2 (BEAKER) (test code = 1819) 100.0 RETICULOCYTE [id number] 00:26:24 Test Item Value Reference Range Interpretation Comments RETICULOCYTE COUNT PCT (BEAKER) (test 5.5 % 0.5-1.7 H code = 575) Security Patrol Officer ID - [id number] ID - [id number] 23:57:22 Test Item Value Reference Range Interpretation Comments PHOSPHORUS (BEAKER) 10.0 mg/dL 2.3-4.7 HH Specimen slightly (test code = 604) hemolyzed Security Patrol Officer ID - ADMINCOMPREHENSIVE METABOLIC [id number] 23:57:05 Test Item Value Reference Range Interpretation Comments TOTAL PROTEIN 5.9 gm/dL 6.0-8.3 L Specimen sligh tly (BEAKER) (test hemolyzed code = 770) ALBUMIN (BEAKER) 3.7 g/dL 3.5-5.0 Specimen sl ightly (test code = 1145) hemolyzed ALKALINE 463 U/L 40-150 H PHOSPHATASE (BEAKER) (test code = 346) BILIRUBIN TOTAL 19.5 mg/dL 0.2-1.2 H Specimen sli ghtly (BEAKER) (test hemolyzed code = 377) SODIUM (BEAKER) 149 meq/L 136-145 H (test code = 381) POTASSIUM (BEAKER) 6.6 meq/L 3.5-5.1 HH Specimen slightly (test code = 379) hemolyzed CHLORIDE (BEAKER) 106 meq/L 98-107 (test code = 382) CO2 (BEAKER) (test 9 meq/L 22-29 LL code = 355) BLOOD UREA 30 mg/dL 7-21 H NITROGEN (BEAKER) (test code = 354) CREATININE 2.69 mg/dL 0.57-1.25 H Specimen slight ly (BEAKER) (test hemolyzed code = 358) GLUCOSE RANDOM 144 mg/dL 70-105 H (BEAKER) (test code = 652) CALCIUM (BEAKER) 8.3 mg/dL 8.4-10.2 L (test code = 697) AST (SGOT) 1393 U/L 5-34 H Specimen slight ly (BEAKER) (test hemolyzed code = 353) ALT (SGPT) 444 U/L 6-55 H Specimen slight ly (BEAKER) (test hemolyzed code = 347) EGFR (BEAKER) 21 Interpretatio n of eGFR (test code = [...] not appl icable for dialysis patien ts Security Patrol Officer ID - ADMINSpecimen markedly ictericLACTATE DEHYDROGENASE (LDH) 2022-12-16 23:54:23 Test Item Value Reference Range Interpretation Comments LACTATE DEHYDROGENASE 5509 U/L 125-220 H Specim en slightly (BEAKER) (test code = hemoly zed 635) Security Patrol Officer ID - ADMINOperator ID - [id number] 23:50:47 Test Item Value Reference Range Interpretation Comments MAGNESIUM (BEAKER) 4.0 mg/dL 1.6-2.6 H Specimen slightly (test code = 627) hemolyzed Security Patrol Officer ID - ADMINCREATINE KINASE (CK)2022-12-16 23:50:47 Test Item Value Reference Range Interpretation Comments CREATINE KINASE TOTAL (BEAKER) (test 246 U/L 29-200 H code = 380) Security Patrol Officer ID - ADMINB-TYPE NATRIURETIC FACTOR (BNP)2022-12-16 23:49:23 Test Item Value Reference Range Interpretation Comments B-TYPE NATRIURETIC PEPTIDE 1214 pg/mL 0-100 H (BEAKER) (test code = 700) Security Patrol Officer ID - ADMINHIGH SENSITIVITY TROPONIN [id number] 23:49:01 Test Item Value Reference Range Interpretation Comments HIGH SENSITIVITY TROPONIN I (test 341 pg/ml <=17 H code = 2161237) Security Patrol Officer ID - ADMINThe COOKING TEACHER STAT High Sensitivity Troponin-I results should be used in conjunction with other diagnostic information such as ECG, clinical observations and information, and patientsymptoms to aid in the diagnosis of SD. LACTIC ACID, [id number] 23:46:32 Test Item Value Reference Range Interpretation Comments LACTATE BLOOD VENOUS > mmol/L 0.50-2.20 HH Specime n slightly (2) (BEAKER) (test hemolyzed code = 2872) Security Patrol Officer ID - ADMINSpecimen markedly [id number] 23:45:44 Test Item Value Reference Range Interpretation Comments PARTIAL THROMBOPLASTIN TIME 37.7 seconds 22.5-36.0 H (BEAKER) (test code = 760) [id number] 23:45:23 Test Item Value Reference Range Interpretation Comments HAPTOGLOBIN (BEAKER) (test code = < mg/dL 14-258 L 366) Security Patrol Officer ID - ADMINPROTHROMBIN TIME/[id number] 23:45:07 Test Item Value Reference Range Interpretation Comments PROTIME (BEAKER) (test code = 31.7 seconds 11.9-14.2 H 759) INR (BEAKER) (test code = 370) 3.32 <=5.90 RECOMMENDED COUMADIN/WARFARIN INR THERAPY RANGESSTANDARD DOSE: 2.0 - 3.0 Includes: PROPHYLAXIS for venous thrombosis, systemic embolization; TREATMENT for venous thrombosis and/or pulmonary embolus.HIGH RISK: Target INR is 2.5-3.5 for patients with mechanical heart valves.BLOOD GAS, [id number] 23:32:56 Test Item Value Reference Range Interpretation Comments PH VENOUS (BEAKER) (test code = 6.96 7.32-7.42 LL 701) PCO2 VENOUS (BEAKER) (test code 54 mm Hg 41-51 H = 755) PO2 VENOUS (BEAKER) (test code = 49 mm Hg 25-40 H 702) O2 SATURATION VENOUS (BEAKER) 60.8 % 40.0-70.0 (test code = 703) HCO3 VENOUS (BEAKER) (test code 12 mmol/L 21-29 L = 705) BASE EXCESS VENOUS (BEAKER) -18.4 mmol/L -2.0-3.0 L (test code = 704) PATIENT TEMPERATURE (BEAKER) 37.0 (test code = 1818) POCT-GLUCOSE [id number] 23:32:51 Test Item Value Reference Range Interpretation Comments POC-GLUCOSE METER 150 mg/dL 70-110 H : TESTED A T [facility] 6720 (BEAKER) (test code [facility], = 1538) [address]: Security Patrol Officer/Techni waylon ID = [id number] for SUGU , SHEENAMOL POC [id number] 23:29:37 Test Item Value Reference Range Interpretation Comments POC-Glucose (test code = 157 mg/dL 70-110 H : T ESTED AT [facility] 1855) 6720 [facility], 770 30: Security Patrol Officer/Techni waylon ID = [id number] for URCIA, FAMELA Lab Interpretation (test Abnormal code = 01870-0) [facility][id number] 23:29:37 Test Item Value Reference Range Interpretation Comments POC-GLUCOSE (BEAKER) 157 mg/dL 70-110 H : TESTE D AT [facility] 6720 (test code = 1855) [facility], [address]: Security Patrol Officer/Techni waylon ID = [id number] for URCI A, FAMELA OQG-[id number] 23:29:36 Test Item Value Reference Range Interpretation Comments POC-Potassium (test code 6.1 meq/L 3.6-5.5 HH : T ESTED AT [facility] = 1540) 6720 [facility], 770 30: Security Patrol Officer/Techni waylon ID = [id number] for URCIA, FAMELA Lab Interpretation (test Abnormal code = 23351-1) [facility] HospitalSrfurfWKVK-[id number] 23:29:36 Test Item Value Reference Range Interpretation Comments POC-Hemoglobin (test code 5.8 g/dL 12.0-15.0 LL : TESTED AT [facility] = 1856) 6720 [facility], 7[address]: Security Patrol Officer/Techni waylon ID = [id number] for URCIA, FAMELA Lab Interpretation (test Abnormal code = 02364-0) [facility] HospitalQzpiemCOBL-[id number] 23:29:36 Test Item Value Reference Range Interpretation Comments POC-Hematocrit (test code 17 % 36-45 L : = 1857) Security Patrol Officer/Techni waylon ID = [id number] for URCIA, FAMELA Lab Interpretation (test Abnormal code = 01267-6) [facility] HospitalPOCT-[id number] 23:29:36 Test Item Value Reference Range Interpretation Comments POC-POTASSIUM 6.1 meq/L 3.6-5.5 HH : TESTED AT [facility] 67 (BEAKER) (test code [facility], = 1540) [address]: Security Patrol Officer/Techni waylon ID = [id number] for URCI A, FAMELA APHD-[id number] 23:29:36 Test Item Value Reference Range Interpretation Comments POC-HEMOGLOBIN 5.8 g/dL 12.0-15.0 LL : TESTED AT [facility] 67 (BEAKER) (test code = MARTHACO Brock [facility], 185) [address]: Security Patrol Officer/Techni waylon ID = [id number] for URCI A, FAMELA [id number] 23:29:36 Test Item Value Reference Range Interpretation Comments POC-HEMATOCRIT 17 % 36-45 L : Security Patrol Officer/Te chnician ID = (BEAKER) (test code = 151004 for URCIA, FAMELA 185) POC-Blood gases, [id number] 23:29:35 Test Item Value Reference Range Interpretation Comments Temp. Celsius-POC (test 97.0 code = 1834) FIO2-POC (test code = 100 1835) pH, Venous-POC (test 7.005 7.320-7.420 LL : TESTE D AT [facility] code = 1842) 6720 [facility] [place], [address] PCO2, Venous-POC (test 49.3 See_Comment If pO 2 is >180, code = 1843) pCO2 may be positively bias ed [Automated mess age] The system Step-In generated this result transmit tomy reference range : 41.0 - 51.0 mm Hg. The reference r stefanie was not used to interpret this result as normal/abnormal . PO2, Venous-POC (test 32.0 See_Comment [Auto mated code = 1844) message] The sy stem which generated this result transmitted reference range : 25.0 - 40.0 mm Hg. The reference r stefanie was not used to interpret this result as normal/abnormal . SO2, Venous-POC (test 39.0 % 40.0-70.0 L code = 1845) HCO3, Venous-POC (test 12.5 meq/L 21.0-29.0 L code = 1846) BE, Venous-POC (test -19.0 meq/L -2.0-3.0 L : code = 1847) Security Patrol Officer/Techni waylon ID = [id number] for URCIA, FAMELA Lab Interpretation Abnormal (test code = 77364-5) [facility]-[id number] 23:29:35 Test Item Value Reference Range Interpretation Comments POC-Sodium (test code = 144 meq/L 135-148 : TE STED AT [facility] 1542) 6720 [facility] [place], [address]: Security Patrol Officer/Techni waylon ID = [id number] for URCIA, FAMELA Lab Interpretation (test Normal code = 13213-5) [facility]-BLOOD GASES, [id number] 23:29:35 Test Item Value Reference Range Interpretation Comments TEMP, CELSIUS-POC 97.0 (BEAKER) (test code = 1834) FIO2-POC (BEAKER) 100 (test code = 1835) PH, VENOUS-POC 7.005 7.320-7.420 LL : TESTED AT [facility] 6720 (BEAKER) ([place], code = 1842) [address] PCO2, VENOUS-POC 49.3 mm Hg 41.0-51.0 If pO2 is > 180, pCO2 may (BEAKER) (test be positively biased code = 1843) PO2, VENOUS-POC 32.0 mm Hg 25.0-40.0 (BEAKER) (test code = 1844) SO2, VENOUS-POC 39.0 % 40.0-70.0 L (BEAKER) (test code = 1845) HCO3, VENOUS-POC 12.5 meq/L 21.0-29.0 L (BEAKER) (test code = 1846) BASE EXCESS, -19.0 meq/L -2.0-3.0 L : Security Patrol Officer/Tech nician ID VENOUS-POC = [id number] for UR ALCIDES, (BEAKER) (test FAMELA code = 1847) [id number]-[id number] 23:29:35 Test Item Value Reference Range Interpretation Comments POC-SODIUM (BEAKER) 144 meq/L 135-148 : TESTED AT [facility] 6720 (test code = 1542) [place], [address]: Security Patrol Officer/Techni waylon ID = [id number] for URCI A, FAMELA CALCIUM, [id number] 23:24:15 Test Item Value Reference Range Interpretation Comments CALCIUM IONIZED (BEAKER) (test 1.01 mmol/L 1.12-1.27 L code = 698) PH, BLOOD (BEAKER) (test code = 6.96 1810) RAD, CHEST, 1 VIEW, NON [id number] 23:19:00Post-intubationReason for exam:- >SOBShould this be performed at the bedside?->Yes [facility] : 1975 Sex: FFINAL REPORT Exam: RAD, CHEST, 1 VIEW, NON DEPTDate: 12/16/2022 11:18 PM Indication:SOBComparison: None FINDINGS: Lines/Tubes/Devices: None Lungs/pleura:Borderline lung volumes. Elevated right hemidiaphragm. Central vascular prominence. No pleural effusion. No pneumothorax. Heart/M ediastinum:Magnified by portable technique. Bones/Soft Tissues: No acute osseous abnormality. Upper abdomen: Unremarkable. IMPRESSION:Borderline lung volumes.Elevated right hemidiaphragm.Central vascular prominence, congestion. Signed: Dav Domínguez MDReport Verified Date/Time: 12/16/2022 23:19:07 Dacia ctronically signed by: DAV DOMÍNGUEZ MD on 12/16/2022 11:19 PMCBC W/AUTO DIFF 2022-11-24 11:07:00 Test Item Value Reference Range Interpretation Comments WHITE BLOOD CELL (test code = 6.1 K/mm3 4.5-11.0 N WBC) RED BLOOD CELL (test code = 2.60 M/mm3 3.80-5.20 L RBC) HEMOGLOBIN (test code = HGB) 7.8 gm/dL 12.0-16.0 L HEMATOCRIT (test code = HCT) 23.3 % 36.0-48.0 L MEAN CELL VOLUME (test code = 89.6 UM3 82.0-99.0 N MCV) MEAN CELL HGB (test code = MCH) 30.0 UUG 25.5-32.5 N MEAN CELL HGB CONCETRATION 33.5 gm/dL 29.0-35.5 N (test code = MCHC) RED CELL DISTRIBUTION WIDTH 18.7 % 11.5-15.0 H (test code = RDW) RED CELL DISTRIBUTION WIDTH SD 52.6 fL 34.8-50.2 H (test code = RDW-SD) PLATELET COUNT (test code = 163 K/mm3 150-400 N PLT) MEAN PLATELET VOLUME (test code 12.3 fl 7.4-10.4 H = MPV) NEUTROPHIL % (test code = NT%) 72.5 % 49.0-76.0 N IMMATURE GRANULOCYTE % (test 5.9 % 0.0-0.4 H code = IG%) LYMPHOCYTE % (test code = LY%) 13.1 % 23.0-38.0 L MONOCYTE % (test code = MO%) 5.2 % 1.0-10.0 N EOSINOPHIL % (test code = EO%) 2.3 % 1.0-5.0 N BASOPHIL % (test code = BA%) 1.0 % 0.0-1.0 N NUCLEATED RBC % (test code = 1.0 % 0.0-0.1 H NRBC%) NEUTROPHIL # (test code = NT#) 4.5 K/mm3 2.4-6.3 N IMMATURE GRANULOCYTE # (test 0.36 x10 3/uL 0.00-0.07 H code = IG#) LYMPHOCYTE # (test code = LY#) 0.8 K/mm3 1.2-4.0 L MONOCYTE # (test code = MO#) 0.3 K/mm3 0.0-0.6 N EOSINOPHIL # (test code = EO#) 0.1 K/MM3 0.0-0.7 N BASOPHIL # (test code = BA#) 0.1 K/mm3 0.0-0.2 N NUCLEATED RBC # (test code = 0.06 X10 3uL 0.00-0.01 H NRBC#) - CHEST 1 [id number] 07:31:00 [facility] 1975 Sex: F FAX:Rancho Bess MD [phone] [place]: St: [facility] FAX: Nreis Estrada MD [phone] Name: [facility]: 1975 Age/S: 47/F [address] Unit #: [id number] Loc: [address] [place] [address] Phys: [place] [address] Acct: [id number] Dis Date: Status: ADM IN PHONE #: [phone] Exam Date: 11/24/2022 0600 FAX #: [phone] Reason: sob EXAMS: CPT CODE: [id number] XR CHEST 1 V 26127 EXAM: - XR CHEST 1 V COMPARISON: 11/23/2022 LOCATION: C3 HISTORY: sob FINDINGS: Single view of thechest. No indwelling lines or tubes. No pneumothorax. The lungs are clear without significant effusions. The mediastinal contours are unremarkable/unchanged. No acute osseous findings are present. IMPRESSION: No acute cardiopulmonary abnormality. at 0731 Reported and signed by: Herve Verdugo M.D. CC: Rancho Oreilly MD; Neris Estrada MD Technologist: KEI HERNANDEZ Trnscrd Date/Time/By: 11/24/2022 (0731) : By: [email or web address] PAGE 1 Signed Report FAX: Rancho Bess MD [phone] [place]: St: [facility] FAX: Neris Estrada MD [phone] Name: LIZBET RAHMAN [facility] : 1975 Age/S: 47/F [address] Unit #: [id number] Loc: [address] [place], [place]: [place] [address] Acct: [id number] Dis Date: Status: ADM IN PHONE #: [phone] Exam Date: 11/24/2022 0600 FAX #: [phone] Reason: sob EXAMS: CPT CODE: [id number] XR CHEST 1 V 08001 (Continued) Orig Print D/T: S: 11/24/2022 (0734) PAGE 2 Signed [id number] 20:15:00 Test Item Value Reference Range Interpretation Comments GLUBED (test code = GLUBED) 95 mg/dL 70-110 N [id number] 14:54:00 Test Item Value Reference Range Interpretation Comments GLUBED (test code = GLUBED) 99 mg/dL 70-110 N [id number] 11:21:00 Test Item Value Reference Range Interpretation Comments GLUBED (test code = GLUBED) 103 mg/dL 70-110 N CBC W/AUTO [id number] 08:38:00 Test Item Value Reference Range Interpretation [...] = 0.03 X10 3uL 0.00-0.01 H NRBC#) [id number] 07:26:00 Test Item Value Reference Range Interpretation Comments GLUBED (test code = GLUBED) 73 mg/dL 70-110 N - XR CHEST 1 [id number] 06:44:00 [facility] : 1975 Sex: F FAX:Rancho Bess MD [phone] [place]: St: [facility] FAX: Neris Estrada MD [phone] Name: LIZBET RAHMAN [facility] : 1975 Age/S: 47/F [address] [facility] Unit #: [id number] Loc: [address] [place], [place]: [place] [address] Acct: [id number] Dis Date: Status: ADM IN PHONE #: [phone] Ex am Date: 11/23/2022 0601 FAX #: [phone] Reason: sob EXAMS: CPT CODE: [id number] XR CHEST 1 V 30289 EXAM: - XR CHEST 1 V COMPARISON: Prior day. LOCATION: HISTORY: sob FINDINGS: Single view of the chest. No indwelling lines/tubes. No pneumothorax. No consolidation or significant effusion. The med iastinal contours are unchanged. IMPRESSION: No acute pulmonary findings. at 0644 Reported and signed by: Herve Verdugo M.D. CC: Rancho Oreilly MD; Neris Estrada MD Technologist: SO CEE [facility] Date/Time/By: 11/23/2022 (0644) : By: [email or web address] PAGE 1 Signed Report FAX: Rancho Bess MD [phone] [place]: St: [facility] FAX: Neris Estrada MD [phone] Name: LIZBET RAHMAN [place] : 1975 Age/S: 47/F [address] Unit #: [id number] Loc: [address] [place] [address] [place]: [place] [address] Acct: [id number] Dis Date: Status: ADM IN PHONE #: [phone] Exam Date: 11/23/2022 0601 FAX #: [phone] Reason: sob EXAMS: CPT CODE: [id number] XR CHEST 1 V 04091 (Continued) Orig Print D/T: S: 11/23/2022 (0647) P AGE 1 Signed ReportCBC W/AUTO [id number] 20:37:00 Test Item Value Reference Range Interpretation [...] = 0.02 X10 3uL 0.00-0.01 H NRBC#) [id number] 20:15:00 Test Item Value Reference Range Interpretation Comments GLUBED (test code = GLUBED) 99 mg/dL 70-110 N - US TRANSVAGINAL NON [id number] 14:00:00 [facility] : 1975 Sex: F FAX:Neris Estrdaa MD [phone] [place]: St: ADM Name: LIZBET RAHMAN [facility] : 1975 Age/S: 47/F [address] [facility] Unit #: [id number] Loc: [address] [place] [address] [place]: [place] [address] Acct: [id number] Dis Date: Status: ADM IN PHONE #: [phone] Exam Date: 11/22/2022 1248 FAX #: [phone] Reason: PELVIC MASS EXAMS: CPT CODE: [id number] [place] [address] HISTORY: Pelvic mass. Comparison to CT abdomen 11/19/2022 Location Code: B2 TECHNIQUE: Multiple transverse and longitudinal sonographic images were obtained. FINDINGS: The uterus measures 9.3 x 4.5 x 5.5 cm. It is homogeneous in echogenicity. An isoechoic structure in the posterior cul-de-sac measures 5.5 x 3.9 x 5.3cm demonstrating minimal internal vascularity. The endometrial stripe [...] Terry M.D. CC: Neris Estrada MD Technologist: [id number] Rm 1; LIV BLOOM Trnscrd Date/Time/By: 11/22/2022 (1400) : By: [email or web address] PAGE 1 Signed Report FAX: Neris Estrada MD [phone] [place]: EM St: ADM Name: LIZBET RAHMAN [facility] : 1975Age/S: 47/F [address] Unit #: [id number] Loc: [address] [place] [address] [place]: [place] [address] Acct: [id number] Dis Date: Status: ADM IN PHONE #: [phone] Exam Date: 2022 1248 FAX #: [phone] Reason: PELVIC MASS EXAMS: CPT CODE: [id number] US TRANSVAGINAL NON DG88189 (Continued) Orig Print D/T: S: 11/22/2022 (1403) PAGE 2 Signed Report- DUP AB/PEL/SC [id number] 14:00:00 [facility] : 1975 Sex: F FAX:Neris Estrada MD [phone] [place]: St: ADM Name: LIZBET RAHMAN [facility] : 1975 Age/S: 47/F [address] Unit #: [id number] Loc: [address] [place], [place]: [place] [address] Acct: [id number] Dis Date: Status: ADM IN PHONE #: [phone] Exam Date: 11/22/2022 1248 FAX #: [phone] Reason: MASS ON CT EXAMS: CPT CODE: [id number] DUP AB/PEL/SC COMP 18542 HISTORY: Pelvic mass. Comparison to CT abdomen [...] 1 Signed Report FAX: Neris Estrada MD [phone] [place]: St: ADM Name: LIZBET RAHMAN [facility] : 1975 Age/S: 47/F [address] Unit #: [id number] Loc: [address] [place], [place]: [place] [address] Acct: [id number] Dis Date: Status: ADM IN PHONE #: [phone] Exam Date: 11/22/2022 1248 FAX #: Reason: MASS ON CT EXAMS: CPT CODE: [id number] DUP AB/PEL/SC COMP 51600 (Continued) Orig Print D/T: S: 11/22/2022 (1403) PAGE 2 Signed Report- US PELVIS [id number] 14:00:00 [facility] : 1975 Sex: F FAX: Neris Estrada MD [phone] [place]: St: ADM FAX: Shreyas Marti [phone] Name: GRISLIZBET [facility] : 1975 Age/S: 47/F [address] Unit #: [id number] Loc: [address] [place], [place]: [place] [address] Acct: [id number] Dis Date: Status: ADM IN PHONE #:[phone] Exam Date: 11/22/2022 1248 FAX #: [phone] Reason: pelvic mass EXAMS: CPT CODE: [id number] US PELVIS COMPLETE 00693 HISTORY: Pelvic mass. Comparison to CT abdomen [...] 1 Signed Report FAX: Neris Estrada MD [phone] [place]: St: [facility] FAX: Shreyas Marti [phone] [facility] 1975[facility]: 47[facility]F [address] [facility] Unit #: [id number] Loc: [address] [place], [place]: [place] [address] Acct: [id number] Dis Date: Status: ADM IN PHONE #: [phone] Exam Date: 11/22/2022 1248 FAX #: [phone] Reason: pelvic mass EXAMS: CPT CODE: [id number] US PELVIS COMPLETE 15316 (Continued) Orig Print D/T: S: 11/22/2022 (1403) PAGE 2 Signed [id number] 08:56:00 Test Item Value Reference Range Interpretation Comments GLUBED (test code = GLUBED) 100 mg/dL 70-110 N CBC W/AUTO [id number] 07:31:00 Test Item Value Reference Range Interpretation [...] X10 3uL 0.00-0.01 N NRBC#) COMPREHENSIVE METABOLIC [id number] 07:28:00 Test Item Value Reference Range Interpretation [...] the recommended for sudhir for GFRby the [facility] on for Adults.The GFR [...] code = ALKP) - XR CHEST 1 [id number] 06:51:00 [facility] : 1975 Sex: F FAX:Rancho Bess MD [phone] [place]: St: [facility] FAX: Neris Estrada MD [phone] Name: LIZBET RAHMAN [facility] : 1975 Age/S: 47/F [address] Unit #: [id number] Loc: [address] [place] [address] [place]: [place] [address] Acct: [id number] Dis Date: Status: ADM IN PHONE #: [phone] Ex am Date: 11/22/2022 0502 FAX #: [phone] Reason: sob EXAMS: CPT CODE: [id number] XR CHEST 1 V 65407 EXAM: - XR CHEST 1 V COMPARISON: 11/19/2022 LOCATION: [facility] HISTORY: sob FINDINGS: Single view of the chest. Unchanged indwelling lines/tubes. No pneumothorax. No consolidation or significant effusion. The mediastinal contours are unchanged. IMPRESSION: No acute pulmonary findings. ElectronicallySigned by Marifer Verdugo on 11/22/2022 at 0651 Reported and signed by: Herve Verdugo M.D. CC: Rancho Oreilly MD; Neris Estrada MD Technologist: GINGER LI Trnscrd Date/Time/By: 11/22/2022 (0651) : By: [email or web address] PAGE 1 Signed Report FAX: Rancho Bess MD [phone] [place]: St: ADM FAX: Neris Estrada MD [phone] Name: LIZBET RAHMAN [facility] : 1975 Age/S: 47/F [address] Unit #: [id number] Loc: [address] [place], [place]: [place] [address] Acct: [id number] Dis Date: Status: ADM IN PHONE #: [phone] Exam Date: 11/22/2022501 FAX #: [phone] Reason: sob EXAMS: CPT CODE: [id number] XR CHEST 1 V 39319 (Continued) Orig Print D/T: S: 11/22/2022 (0654) PAGE 2 Signed [id number] 21:06:00 Test Item Value Reference Range Interpretation Comments GLUBED (test code = GLUBED) 102 mg/dL 70-110 N [id number] 20:10:00 Test Item Value Reference Range Interpretation Comments GLUBED (test code = GLUBED) 104 mg/dL 70-110 N CBC W/MANUAL [id number] 14:02:00 Test Item Value Reference Range Interpretation [...] (test code NORMAL = PLTMORPH) ARTERIAL BLOOD [id number] 10:49:00 Test Item Value Reference Range Interpretation [...] MAL = METHGB) <2.0POTENTIALLY TOXIC >20.0 RETICULOCYTE [id number] 08:56:00 Test Item Value Reference Range Interpretation Comments RETIC COUNT (AUTOMATED) (test 4.50 % 0.58-2.72 H code = RETICA) RETIC COUNT ABSOLUTE (test 0.0896 X10 6 uL 0.0237-0.1295 N code = RET#) IMMATURE RETICULOCYTE 34.0 % 0.0-29.5 H FRACTION (test code = IRF) RETICULOCYTE HGB EQUIVALENT 32.5 pg 27.4-42.0 N (test code = RETHE) [id number] 08:38:00 Test Item Value Reference Range Interpretation Comments GLUBED (test code = GLUBED) 110 mg/dL 70-110 N BILIRUBIN [id number] 08:35:00 Test Item Value Reference Range Interpretation Comments BILIRUBIN TOTAL (test code = BILT) 5.7 mg/dl 0.0-1.0 H LACTIC DEHYDROGENASE(LDH)2022-11-21 08:35:00 Test Item Value Reference Range Interpretation Comments LACTIC DEHYDROGENASE(LDH) (test 1847 Units/L 81-234 HH code = LDH) BASIC METABOLIC [id number] 08:34:00 Test Item Value Reference Range Interpretation [...] code 8.7 mg/dl 8.0-10.5 N = CA) [id number] 21:52:00 Test Item Value Reference Range Interpretation Comments HGBA1C% (test code = <3.8 %A1C 4.8-6.0 L TEST PE RFORMED AT HGBA1C%) [facility] ESTIMATED AVERAGE 62 MG/DL GLUCOSE (test code = EAG) UNABLE TO GET THE RESULT---[facility] 1923--NOTIFIED WESLEY RICHARDSON AT 1923.[id number] 21:04:00 Test Item Value Reference Range Interpretation Comments GLUBED (test code = GLUBED) 95 mg/dL 70-110 N [id number] 16:45:00 Test Item Value Reference Range Interpretation Comments GLUBED (test code = GLUBED) 89 mg/dL 70-110 N LACTIC [id number] 15:59:00 Test Item Value Reference Range Interpretation Comments LACTIC ACID (test code = LACT) 1.8 mmol/L 0.4-2.0 N RETICULOCYTE [id number] 15:45:00 Test Item Value Reference Range Interpretation Comments RETIC COUNT (AUTOMATED) (test 3.34 % 0.58-2.72 H code = RETICA) RETIC COUNT ABSOLUTE (test 0.0568 X10 6 uL 0.0237-0.1295 N code = RET#) IMMATURE RETICULOCYTE 24.4 % 0.0-29.5 N FRACTION (test code = IRF) RETICULOCYTE HGB EQUIVALENT 30.5 pg 27.4-42.0 N (test code = RETHE) CBC W/MANUAL [id number] 14:18:00 Test Item Value Reference Range Interpretation [...] NORMAL (test code = PLTMORPH) CBC W/AUTO [id number] 14:08:00 Test Item Value Reference Range Interpretation [...] 0.00-0.01 H code = NRBC#) CBC W/AUTO [id number] 12:22:00 Test Item Value Reference Range Interpretation [...] H (test code = NRBC#) BASIC METABOLIC [id number] 12:12:00 Test Item Value Reference Range Interpretation [...] 8.0-10.5 N = CA) COVID 19 INHOUSE [id number] 09:35:00 Test Item Value Reference Range Interpretation Comments COVID 19 INHOUSE NEGATIVE NEGATIVE Negative re sults should be AG (test code = treated as p resumptive and [id number]) ifinconsistent with clinical signs and sympt oms, or necessaryfor pa tient management, kai uld be tested with an alterna tivemolecular assay. Negative results do not preclude PDJJ-LyR-8sghhs tion and should not be u sed as the sole basis forp atient management deci sions. Negative result s should beconsidered in the context of a patient's recent exposures,histo ry, presence of clinical sig ns and symptoms consis tentwith COVID-19. - XR CHEST 1 [id number] 20:07:00 [facility] 1975 Sex: F FAX:Dawson Herrera DO [phone] [place]: St: [facility] FAX: James Bundy Name: LIZBET RAHMAN [facility] : 1975 Age/S: 47/F [address] [facility] Unit #: [id number] Loc: LINH [place], [place] Phys: James Bundy MITZYP [address] Acct: [id number] Dis Date: Status: ADM IN PHONE #: [phone] ExamDate: 11/19/20221958 FAX #: [phone] Reason: OPACITIES EXAMS: CPT CODE: [id number] XR CHEST 1 [id number] EXAM: - XR CHEST 1 V HISTORY: [...] acute cardiopulmonary process. Hypoinflation of the lungs. at 2006 Reported and signed by: Zane Hearn M.D. CC: Dawson Herrera DO; James Lopezz Technologist: GINGER Gutierrez Date/Time/By: 11/19/2022 (2006) : By: [email or web address] PAGE 1 Signed Report FAX: Dawson Herrera DO [phone] [place]: St: [facility] FAX: James Bundy Name: LIZBET RAHMAN [facility] : 1975 Age/S: 47/F [address] [facility] Unit #: [id number] Loc: LINH [place], [place] Phys: Gasper Bundyerrol Fleming APRNNP [address] Acct: [id number] Dis Date: Status: ADM IN PHONE #: [phone] Exam Date: 11/19/20221958 FAX #: [phone] Reason: OPACITIES EXAMS: CPT CODE: [id number] XR CHEST 1 V 52851 () Orig Print D/T: S: 11/19/2022 (2009) PAGE 2 Signed Report- CT ABD PELVIS W/[id number] 18:37:00 [facility] : 1975 Sex: F FAX: James Bundy [place]: St: REG Name: LIZBET RAHMAN [facility] : 1975 Age/S: 47/F [address] [facility] Unit: [id number] Loc: E.ERS2 [place], [place] Phys: James Bundy [address] Acct: [id number] Dis Date: Status: REG ER PHONE #: [phone] Exam Date: 11/19/20221802 FAX #: [phone] Reason: RLQ PAIN EXAMS: CPT CODE: [id number] CT ABD PELVIS W/CONT 05461 EXAMINATION: - CT ABD PELVIS W/CONT CLINICAL [...] Liver: Prominent hepatomegaly measuring 25 cm craniocaudal dimension.No focal lesions Bile ducts are physiologically dilated following cholecystectomy. Gallbladder: Surgically absent. Pancreas: Normal appearance without focal lesion. Spleen: Prominent splenomegaly measuring 20.5 cm in length. Adrenals: Normal configuration. Kidneys and ureters: Normal size and contour. No hydronephrosis. Bladder/Reproductive Organs: Normal in appearance. 3.7 cm rounded masslike areaat the left posterior pelvic cul-de-sac could be a exophytic fibroid at the posterior lower uterine segment. Very anteverted uterus with nabothian cyst could simulate this appearance. Adnexal lesion isnot excluded. PAGE 1 Signed Report (CONTINUED) FAX: James Bundy [place]: St: REG Name: LIZBET RAHMAN [facility] : 1975 Age/S: 47/F [address] [facility] Unit: [id number] Loc: E.ERS2 [place], [place] Phys: James Bundy [address] Acct: [id number] Dis Date: Status: REG ER PHONE #: [phone] Exam Date: 11/19/2022 180 FAX #: [phone] Reason: RLQ PAIN EXAMS: CPT CODE: [id number] CT ABD PELVIS W/CONT 97036 (Continued) Bowel: Loops of bowel without wall [...] inferior vena cava are normal in course and caliber. Abdominal wall: Tiny fat-containing umbilical hernia. Bones: [...] Technologist: Antonette Desai Trnscrd Dt/Tm: 11/19/2022 (1836) t.JUAN JOSER.LJ12 Orig Print D/T: S: 11/19/2022 (1840 PAGE 2 Signed ReportBASIC METABOLIC [id number] 17:13:00 Test Item Value Reference Range Interpretation [...] (test code = ECRCL) HEPATIC FUNCTION PANEL [id number] 17:13:00 Test Item Value Reference Range Interpretation [...] 130 Units/L 50.0-136.0 N code = ALKP) [id number] 17:13:00 Test Item Value Reference Range Interpretation Comments LIPASE (test code = LIP) 129 Units/L 65.0-230.0 N TROP-I HIGH [id number] 17:13:00 Test Item Value Reference Range Interpretation Comments TROP-I HIGH 9.2 pg/mL 0.0-51.4 N CAUTION: Units of the SENSITIVITY (test current TR OPI-HS test code = TROPIHS) methodology( pg/mL) differ from the prior test methodolog y (ng/mL) by afac tor of 1000. -------- -------- ---99th Percentile: Fem ales: 0.0-51.4 pg/mL Males: 0.0-76.2 pg/pipe line walker hese results were ob tained using Dimension EXL TnIHreagent. Re sults from different methodologies s hould not becompared to one another as rica titative results may norma y bymethod. CBC W/AUTO [id number] 16:54:00 Test Item Value Reference Range Interpretation [...] 0.00 X10 3uL 0.00-0.01 N NRBC#) PROTHROMBIN [id number] 16:53:00 Test Item Value Reference Range Interpretation Comments PROTHROMBIN TIME 10.6 SECONDS 9.9-12.8 N PATIENT (test code = PTP) INTERNATIONAL NORMAL 0.9 0.89-1.14 N THE INR IS TO BE USED RATIO (test code = ONLY FOR MONITORING INR) ORAL ANTICOAGULANTTH ERAPY. THE FOLLOWING A RE SUGGESTED RANGE S FROM [facility] COL LEGE OF CHEST PHYSICIANS:YOLANDA CATION INR VALUEPROPHY LAXIS OF VENOUS THROM BOSIS (ORTHOPEDIC MARCUS NOLAN) 2.0 - 3.0PROPHY LAXIS OF VENOUS THROM BOSIS (OTHER THAN HIG H-RISK SURGERY) 2.0 - 3.0TREATMENT OF DEEP VEIN THROMBOSIS OR PULMONARY EMBOL ISM 2.0 - 3.0PREVEN TION OF SYSTEMIC EMBOLI SM TISSUE HEART VA LVES 2.0 - 3.0 ACUTE MYOCARDIAL INFA RCTION (TO PREVENT SYS TEMIC EMBOLISM) 2.0 - 3.0 ACUTE MYOCARDIA L INFARCTION (TO PREVENT RECURRENT INFAR CT) 2.5 - 3.0 VALVULAR HEART DISEASE 2.0 - 3 .0 ATRIAL FIBRILAT ION 2.0 - 3.0BILEAF LET MECHANICAL VALV E IN AORTIC POSITION 2.0 - 3.0MECHANICAL PROSTHETIC VALV ES (HIGH RISK) 2.5 - 3.5PRESENCE OF LUPUS ANTICOAGULANT O R ANTIPHOSPHOLIPI D ANTIBODIES 2.5 - 3.5 THROMBOPLASTIN TIME [id number] 16:53:00 Test Item Value Reference Range Interpretation Comments THROMBOPLASTIN TIME 30.90 SECONDS 25.86-36.07 N [place] d Lab PARTIAL (test code = Therape utic Range - PTT) APTT of 55.8-85 .4 secondscorrelat es with plasma heparin concentration o f 0.2-0.4 u/mL URINALYSIS [id number] 15:53:00 Test Item Value Reference Range Interpretation [...] >10 #/hpf code = SQU) UR HCG [id number] 15:53:00 Test Item Value Reference Range Interpretation Comments UR HCG QUAL (test code = HCGQLU) NEGATIVE NEGATIVE COMP. METABOLIC PANEL (85243)2022-10-29 21:16:00 Test Item Value Reference Range Interpretation Comments NA (test code = 140 mmol/L 135-145 4584255722) K (test code = 4.1 mmol/L 3.5-5.0 7522583629) CL (test code = 108 mmol/L 98-108 2850221740) CO2 TOTAL (test code = 25 mmol/L 23-31 2503269786) AGAP (test code = 7 2-16 8811483167) BUN (test code = 7 mg/dL 7-23 2719947511) GLUCOSE (test code = 112 mg/dL 70-110 H 6355193403) CREATININE (test code = 0.96 mg/dL 0.50-1.04 9093078833) TOTAL BILI (test code = 0.8 mg/dL 0.1-1.1 6409107825) CALCIUM (test code = 8.1 mg/dL 8.6-10.6 L 4774073924) T PROTEIN (test code = 6.3 g/dL 6.3-8.2 1415875569) ALBUMIN (test code = 4.2 g/dL 3.5-5.0 3741716923) ALK PHOS (test code = 94 U/L 34-122 4884943115) ALTv (test code = 28 U/L 5-35 1742-6) AST(SGOT) (test code = 36 U/L 13-40 1793719760) eGFR (test code = 61.8 mL/min/1.73m2 3719727194) AREN (test code = AREN) Association of [...] tests). Lab Interpretation Abnormal (test code = 85069-0) [facility] WITH [id number] 21:11:40 Test Item Value Reference Range Interpretation [...] (test code = 86.2 fL 39.0-49.9 H 96650-6) RDW-CV (test code = 22.4 % 12.0-15.5 H 788-0) PLT (test code = 151 See_Comment L [Automated 777-3) message] The sy stem which generated this result transmitted reference range : 166 - 358 10*3/ ?L. The reference r stefanie was not used to interpret this result as normal/abnormal . MPV (test code = 12.4 fL 9.5-12.9 95588-4) NRBC/100 WBC (test 0.0 See_Comment [Automat ed code = 0299049066) message] The system which generated this result transmitted reference range : 0.0 - 10.0 /100 WBCs. The refer ence range was not u sed to interpret th is result as normal/abnormal . NRBC x10^3 (test code See_Comment [Auto mated = 9320664075) message] The s ystem which generated this result transmitted reference range : 10*3/?L. The reference range was not used to interpret this result as normal/abnormal . GRAN MAT (NEUT) % 69.5 % (test code = 770-8) IMM GRAN % (test code 0.70 % = 2693059289) LYMPH % (test code = 19.9 % 736-9) MONO % (test code = 7.5 % 5905-5) EOS % (test code = 1.7 % 713-8) BASO % (test code = 0.7 % 706-2) GRAN MAT x10^3(ANC) 2.86 10*3/uL 1.88-7.09 (test code = 6593006196) IMM GRAN x10^3 (test 0.03 10*3/uL 0.00-0.06 code = 1389764495) LYMPH x10^3 (test code 0.82 10*3/uL 1.32-3.29 L = 731-0) MONO x10^3 (test code 0.31 10*3/uL 0.33-0.92 L = 742-7) EOS x10^3 (test code = 0.07 10*3/uL 0.03-0.39 711-2) BASO x10^3 (test code 0.03 10*3/uL 0.01-0.07 = 704-7) Lab Interpretation Abnormal (test code = 50948-7) [facility]$[id number] 10:00:00 Test Item Value Reference Range Interpretation Comments GLUCOSE-Q (test code 88 mg/dL 65-99 ? = 2345-7) Fasting referen ce interval UREA NITROGEN (BUN)-Q 14 mg/dL 7-25 (test code = 3094-0) CREATININE-Q (test 1.39 mg/dL 0.50-0.99 H code = 2160-0) EGFR-Q (test code = 47 See_Comment L The eGFR is based 33664-7) on the CKD-EPI 2020 equation. To calculate [...] . SODIUM-Q (test code = 139 mmol/L 851-651 3949-2) POTASSIUM-Q (test 3.5 mmol/L 3.5-5.3 code = 2823-3) CHLORIDE-Q (test code 105 mmol/L 98-110 = 2075-0) CARBON DIOXIDE-Q 23 mmol/L 20-32 (test code = 2027-9) CALCIUM-Q (test code 8.9 mg/dL 8.6-10.2 = 17890-7) AREN (test code = AREN) PERFORMED BY [employer] [place]; [address] [place] [address]; LORRIE QUIROZ MD Lab Interpretation Abnormal (test code = 47409-9) [facility]-Glucose [id number] 11:44:22 Test Item Value Reference Range Interpretation Comments POC-Glucose Meter (test 156 mg/dL 70-110 H : TE STED AT [facility] code = 1538) [address] [place] [address], [facility] 30: Security Patrol Officer/Techni waylon ID = [id number] for SREE MARTINEZ Lab Interpretation (test Abnormal code = 00396-9) [facility]-Glucose [id number] 11:44:22 Test Item Value Reference Range Interpretation Comments POC-Glucose Meter (test 156 mg/dL 70-110 H : TE STED AT [facility] code = 1538) [address] [place] [address], [facility] 30: Security Patrol Officer/Techni waylon ID = [id number] for SREE MARTINEZ Lab Interpretation (test Abnormal code = 14844-6) [facility]-Glucose [id number] 11:44:22 Test Item Value Reference Range Interpretation Comments POC-Glucose Meter (test 156 mg/dL 70-110 H : TE STED AT [facility] code = 1538) [address] [place] [address], [facility] 30: Security Patrol Officer/Techni waylon ID = [id number] for SREE MARTINEZ Lab Interpretation (test Abnormal code = 29878-9) [facility]-Glucose [id number] 11:44:22 Test Item Value Reference Range Interpretation Comments POC-Glucose Meter (test 156 mg/dL 70-110 H : TE STED AT [facility] code = 1538) [address] [place] [address], [facility] 30: Security Patrol Officer/Techni waylon ID = [id number] for SREE MARTINEZ Lab Interpretation (test Abnormal code = 04803-2) [facility]-Glucose [id number] 11:44:22 Test Item Value Reference Range Interpretation Comments POC-Glucose Meter (test 156 mg/dL 70-110 H : TE STED AT [facility] code = 1538) [address] [place] [address], [facility] 30: Security Patrol Officer/Techni waylon ID = [id number] for SREE MARTINEZ Lab Interpretation (test Abnormal code = 76442-4) [facility] [id number] 11:44:22 Test Item Value Reference Range Interpretation Comments POC-Glucose Meter (test 156 mg/dL 70-110 H : TE STED AT [facility] code = 1538) [address] [place] [address], [facility] 30: Security Patrol Officer/Techni waylon ID = [id number] for SREE MARTINEZ Lab Interpretation (test Abnormal code = 85984-5) [facility]-GLUCOSE [id number] 11:44:22 Test Item Value Reference Range Interpretation Comments POC-GLUCOSE METER 156 mg/dL 70-110 H : TESTED A T [facility] 6720 (BEAKER) (test code = [facility] Brock [facility], 1538) [address]: Security Patrol Officer/Techni waylon ID = [id number] for SREE BLANCHARD POCT-GLUCOSE [id number] 08:01:18 Test Item Value Reference Range Interpretation Comments POC-GLUCOSE METER 116 mg/dL 70-110 H : [facility] ([facility]ER[facility] (test code = [place], 1538) [address]: Security Patrol Officer/Techni waylon ID = [id number] for SREE BLANCHARD [id number] 05:04:32 Test Item Value Reference Range Interpretation Comments HAPTOGLOBIN (BEAKER) (test code = 30 mg/dL 14-258 366) Security Patrol Officer ID - NICHELLE LLACTATE DEHYDROGENASE (LDH)2022-10-25 04:52:08 Test Item Value Reference Range Interpretation Comments LACTATE DEHYDROGENASE (BEAKER) (test 416 U/L 125-220 H code = 635) Security Patrol Officer ID - NICHELLE [id number] 04:52:07 Test Item Value Reference Range Interpretation Comments MAGNESIUM (BEAKER) (test code = 2.0 mg/dL 1.6-2.6 627) Security Patrol Officer ID - NICHELLE LHEPATIC FUNCTION [id number] 04:52:07 Test Item Value Reference Range Interpretation [...] (test code = 18 U/L 6-55 347) Security Patrol Officer ID - NICHELLE LBASIC METABOLIC [id number] 04:52:06 Test Item Value Reference Range Interpretation [...] not appl icable for dialysis patien ts Security Patrol Officer ID - PIAYA LCBC W/PLT COUNT & AUTO [id number] 04:03:09 Test Item Value Reference Range Interpretation [...] PERCENT (BEAKER) (test code = 2801) RETICULOCYTE [id number] 04:03:06 Test Item Value Reference Range Interpretation Comments RETICULOCYTE COUNT PCT (BEAKER) (test 26.7 % 0.5-1.7 H code = 575) Security Patrol Officer ID - 6000POCT-GLUCOSE [id number] 23:24:20 Test Item Value Reference Range Interpretation Comments POC-GLUCOSE METER 129 mg/dL 70-110 H : TESTED A T [facility] 6720 (BEAKER) (test code = [facility], 153) [address]: Security Patrol Officer/Techni waylon ID = [id number] for ORIN BUTTS POCT-GLUCOSE [id number] 17:45:20 Test Item Value Reference Range Interpretation Comments POC-GLUCOSE METER 214 mg/dL 70-110 H : TESTED A T [facility] 6720 (BEAKER) (test code = [facility], 1538) 85[address]: Security Patrol Officer/Techni waylon ID = [id number] for NAVI LOWE POCT-GLUCOSE [id number] 11:53:05 Test Item Value Reference Range Interpretation Comments POC-GLUCOSE METER 154 mg/dL 70-110 H : TESTED A T [facility] 6720 (BEAKER) (test code = [facility], 1538) 117[address]: Security Patrol Officer/Techni waylon ID = [id number] for NAVI LOWE POCT-GLUCOSE [id number] 07:48:48 Test Item Value Reference Range Interpretation Comments POC-GLUCOSE METER 116 mg/dL 70-110 H : TESTED A T [facility] 6720 (BEAKER) (test code = [facility], 1538) [address]: Security Patrol Officer/Techni waylon ID = [id number] for NAVI LOWE HEPATIC FUNCTION [id number] 04:05:23 Test Item Value Reference Range Interpretation [...] (test code = 19 U/L 6-55 347) Security Patrol Officer ID - NEELAM WSpecimen slightly ictericLACTATE DEHYDROGENASE (LDH) 2022-10-24 04:05:23 Test Item Value Reference Range Interpretation Comments LACTATE DEHYDROGENASE (BEAKER) (test 410 U/L 125-220 H code = 635) Security Patrol Officer ID - NEELAM WC-REACTIVE [id number] 04:05:23 Test Item Value Reference Range Interpretation Comments C-REACTIVE PROTEIN (BEAKER) (test 0.38 mg/dL 0.00-0.50 code = 676) Security Patrol Officer ID - NEELAM [id number] 04:05:22 Test Item Value Reference Range Interpretation Comments MAGNESIUM (BEAKER) (test code = 2.1 mg/dL 1.6-2.6 627) Security Patrol Officer ID - NEELAM WBASIC METABOLIC [id number] 04:05:22 Test Item Value Reference Range Interpretation [...] not appl icable for dialysis patien ts Security Patrol Officer ID - NEELAM WSpecimen slightly [id number] 04:00:05 Test Item Value Reference Range Interpretation Comments HAPTOGLOBIN (BEAKER) (test code = 15 mg/dL 14-258 366) Security Patrol Officer ID - ADMINCBC W/PLT COUNT & AUTO [id number] 03:40:48 Test Item Value Reference Range Interpretation [...] PERCENT (BEAKER) (test code = 2801) RETICULOCYTE [id number] 03:40:45 Test Item Value Reference Range Interpretation Comments RETICULOCYTE COUNT PCT (BEAKER) (test 25.4 % 0.5-1.7 H code = 575) Security Patrol Officer ID - 6000POCT-GLUCOSE [id number] 22:02:38 Test Item Value Reference Range Interpretation Comments POC-GLUCOSE METER 142 mg/dL 70-110 H : TESTED A T [facility] 6720 (BEAKER) (test code = [facility], 1538) [address]: Security Patrol Officer/Techni waylon ID = [id number] for KEIRA BERG POCT-GLUCOSE [id number] 17:37:11 Test Item Value Reference Range Interpretation Comments POC-GLUCOSE METER 168 mg/dL 70-110 H : TESTED A T [facility] 6720 (BEAKER) (test code = [facility], 1538) [address]: Security Patrol Officer/Techni waylon ID = [id number] for JEAN MARIE MCCORMACKO, NAVI POCT-GLUCOSE [id number] 12:37:13 Test Item Value Reference Range Interpretation Comments POC-GLUCOSE METER 166 mg/dL 70-110 H : TESTED A T [facility] 6720 (BEAKER) (test code = [facility], 1538) [address]: Security Patrol Officer/Techni waylon ID = [id number] for TE WILFREDO, NAVI Antibody [id number] 12:29:00 Test Item Value Reference Range Interpretation [...] transfus ion be required, Rh an d [place] pheno-matched, crossmatch comp atible RBCs will be is sued. Electronic Sign ature: Vik Renae M.D. [facility] [id number] 12:29:00 Test Item Value Reference Range Interpretation [...] transfus ion be required, Rh an d [place] pheno-matched, crossmatch comp atible RBCs will be is sued. Electronic Sign ature: Vik Renae M.D. [facility] [id number] 12:29:00 Test Item Value Reference Range Interpretation [...] sued. Electronic Sign ature: Vik Renae M.D. [facility] [id number] 12:29:00 Test Item Value Reference Range Interpretation [...] transfus ion be required, Rh an d [place] pheno-matched, crossmatch comp atible RBCs will be is sued. Electronic Sign ature: Vik Renae M.D. [facility] [id number] 12:29:00 Test Item Value Reference Range Interpretation [...] sued. Electronic Sign ature: Vik Renae M.D. [facility] [id number] 12:29:00 Test Item Value Reference Range Interpretation [...] sued. Electronic Sign ature: Vik Renae M.D. [facility]SE [id number] 09:38:23 Test Item Value Reference Range Interpretation Comments POC-GLUCOSE METER 112 mg/dL 70-110 H : TESTED A T [facility] 6720 (BEAKER) (test code = [place], 1538) [address]: Security Patrol Officer/Techni waylon ID = [id number] for NAVI LOWE HEMOGLOBIN [id number] 08:54:11 Test Item Value Reference Range Interpretation Comments HEMOGLOBIN A1C < % See_Comment [Automated m essage] ELECTROPHORESIS (Upside) The system which (test code = 3811) generated this result transmitted ref erence range: <=5.6%. The reference range was not used to int erpret this result as normal/abnormal . "The A1c is measured using a NGSP-certified method. HbA1c value equal to or greater than 6.5% as thediagnosis cutoff for diabetes. An HbA1c value of 5.7- 6.4% indicates increased risk for diabetes (prediabetes)."Security Patrol Officer ID - ADM [id number] 05:49:52 Test Item Value Reference Range Interpretation Comments FERRITIN (shoppAKER) (test code = 371.94 ng/mL 5.00-275.00 H 361) Security Patrol Officer ID - NEIL [id number] 05:24:24 Test Item Value Reference Range Interpretation Comments HAPTOGLOBIN (BEAKER) (test code = < mg/dL 14-258 L 366) Security Patrol Officer ID - ADMINC-REACTIVE [id number] 05:15:33 Test Item Value Reference Range Interpretation Comments C-REACTIVE PROTEIN (BEAKER) (test 0.67 mg/dL 0.00-0.50 H code = 676) Security Patrol Officer ID - NEIL GHEPATIC FUNCTION [id number] 05:15:32 Test Item Value Reference Range Interpretation [...] (test code = 20 U/L 6-55 347) Security Patrol Officer ID - NEIL GLACTATE DEHYDROGENASE (LDH)2022-10-23 05:15:32 Test Item Value Reference Range Interpretation Comments LACTATE DEHYDROGENASE (BEAKER) (test 443 U/L 125-220 H code = 635) Security Patrol Officer ID - NEIL GBASIC METABOLIC [id number] 05:15:31 Test Item Value Reference Range Interpretation [...] not appl icable for dialysis patien ts Security Patrol Officer ID - NEIL [id number] 05:15:31 Test Item Value Reference Range Interpretation Comments MAGNESIUM (BEAKER) (test code = 2.1 mg/dL 1.6-2.6 627) Security Patrol Officer ID - NEIL GCBC W/PLT COUNT & AUTO [id number] 04:59:58 Test Item Value Reference Range Interpretation [...] PERCENT (BEAKER) (test code = 2801) RETICULOCYTE [id number] 04:59:04 Test Item Value Reference Range Interpretation Comments RETICULOCYTE COUNT PCT (BEAKER) (test 25.8 % 0.5-1.7 H code = 575) Security Patrol Officer ID - 6000Operator ID - 6000POCT-GLUCOSE [id number] 22:53:45 Test Item Value Reference Range Interpretation Comments POC-GLUCOSE METER 161 mg/dL 70-110 H : TESTED A T [facility] 6720 (BEAKER) (test code = ROZ Gutiérrez [facility], 1538) [address]: Security Patrol Officer/Techni waylon ID = [id number] for DA UPHIN, LUCKSON RAD, ABDOMEN/KUB, 1 VIEW [id number] 20:13:00Reason for exam:->abd pain [facility] RA[facility]SUSANA : 1975 Sex: FFINAL REPORT Abdomen x-ray [...] 95-100% range. PERIPHERAL BLOOD SMEAR - HOLD [id number] 13:47:13 Test Item Value Reference Range Interpretation Comments PERIPHERAL SMEAR SAVE Saved 1 slide at 1346 (BEAKER) (test code = 1815) [id number] 12:57:37 Test Item Value Reference Range Interpretation Comments HAPTOGLOBIN (BEAKER) (test code = < mg/dL 14-258 L 366) Security Patrol Officer ID - ADMINVITAMIN [id number] 12:33:39 Test Item Value Reference Range Interpretation Comments VITAMIN B12 (BEAKER) (test code = 1532 pg/mL 213-816 H 774) Security Patrol Officer ID - [id number] 12:33:39 Test Item Value Reference Range Interpretation Comments FERRITIN (BEAKER) (test code = 418.77 ng/mL 5.00-275.00 H 361) Security Patrol Officer ID - [id number] 12:15:37 Test Item Value Reference Range Interpretation Comments MAGNESIUM (BEAKER) (test code = 2.0 mg/dL 1.6-2.6 627) Security Patrol Officer ID - ADMINBILIRUBIN, [id number] 12:15:37 Test Item Value Reference Range Interpretation Comments BILIRUBIN DIRECT (BEAKER) (test 0.6 mg/dL 0.1-0.5 H code = 706) Security Patrol Officer ID - ADMINLACTATE DEHYDROGENASE (LDH)2022-10-22 12:15:37 Test Item Value Reference Range Interpretation Comments LACTATE DEHYDROGENASE (BEAKER) (test 460 U/L 125-220 H code = 635) Security Patrol Officer ID - ADMINCOMPREHENSIVE METABOLIC [id number] 12:15:36 Test Item Value Reference Range Interpretation [...] not appl icable for dialysis patien ts Security Patrol Officer ID - ADMINIRON, TIBC, % SAT. (WITHOUT FERRITIN)2022-10-22 12:07:17 Test Item Value Reference Range Interpretation Comments IRON (BEAKER) (test code = 547) 86.0 ug/dL 40.0-160.0 TOTAL IRON BINDING CAPACITY 306 ug/dL 250-450 (BEAKER) (test code = 769) IRON % SATURATION (2) (BEAKER) 28 % 20-55 (test code = 2590) Security Patrol Officer ID - ADMINRETICULOCYTE [id number] 12:06:15 Test Item Value Reference Range Interpretation Comments RETICULOCYTE COUNT PCT (BEAKER) (test 24.8 % 0.5-1.7 H code = 575) Security Patrol Officer ID - [id number] ID - [id number] 12:02:33 Test Item Value Reference Range Interpretation Comments PROTIME (BEAKER) (test 14.2 seconds 11.9-14.2 code = 759) INR (BEAKER) (test 1.12 See_Comment [Automat ed code = 370) message] The OpenSpan stem which generated this result transmitted reference [...] mechanical heart valves.CBC W/PLT COUNT & AUTO [id number] 12:00:27 Test Item Value Reference Range Interpretation [...] 0.00-1.00 PERCENT (BEAKER) (test code = 2801) [id number] 11:58:50 Test Item Value Reference Range Interpretation Comments FIBRINOGEN LEVEL (RHEA) (test 285 mg/dl 225-434 code = 658) THYROID STIMULATING [id number] 04:51:23 Test Item Value Reference Range Interpretation Comments TSH (test code = See_Comment Biotin has been [id number]) reported to cau se a negative bias, interpret resul ts relative to pat ient's use of biotin. [Automated mess age] The system Step-In generated this result transmitted ref erence range: 0.45 - 4 .70 mIU/L. The refe rence range was not u sed to interpret this result as normal/abnor mal. Lab Interpretation (test Normal code = 74061-6) General acute hospital [id number] 04:26:53 Test Item Value Reference Range Interpretation Comments FREE T4 (test code = See_Comment [Autom ated message] [id number]) The system Step-In generated this result transmitted ref erence range: 0.78 - 2 .20 ng/dL:. The ref erence range was not u sed to interpret this result as normal/abnor mal. Lab Interpretation (test Normal code = 90176-0) [facility]. METABOLIC PANEL (00631)2022-10-18 23:04:17 Test Item Value Reference Range Interpretation Comments NA (test code = 141 mmol/L 135-145 0269635710) K (test code = 5.1 mmol/L 3.5-5.0 H 8304431121) CL (test code = 109 mmol/L 98-108 H 6767649210) CO2 TOTAL (test code = 21 mmol/L 23-31 L 0597384912) AGAP (test code = 2-16 1221310950) BUN (test code = 7 mg/dL 7-23 4517534120) GLUCOSE (test code = 104 mg/dL 70-110 1816447804) CREATININE (test code = 1.41 mg/dL 0.50-1.04 H 2518914056) TOTAL BILI (test code = 0.8 mg/dL 0.1-1.5 8179693756) CALCIUM (test code = 9.1 mg/dL 8.6-10.6 6592669844) T PROTEIN (test code = 7.5 g/dL 6.3-8.2 5919469143) ALBUMIN (test code = 5.0 g/dL 3.5-5.0 3885945306) ALK PHOS (test code = 139 U/L 34-122 H 8617383392) ALTv (test code = 28 U/L 5-35 1742-6) AST(SGOT) (test code = 34 U/L 13-40 5615406363) eGFR (test code = mL/min/1.73m2 3654607119) AREN (test code = AREN) Association of [...] tests). Lab Interpretation Abnormal (test code = 65360-1) [id number] Test Item Value Reference Range Interpretation Comments LIPASE (test code = 6065315715) 97 U/L 0-220 Lab Interpretation (test code = Normal 54692-8) [facility] WITH [id number] 22:34:52 Test Item Value Reference Range Interpretation [...] (test code = 76.8 fL 39.0-49.9 H 32646-7) RDW-CV (test code = 22.1 % 12.0-15.5 H 788-0) PLT (test code = See_Comment [Automated 777-3) message] The sy stem which generated this result transmitted reference range : 166 - 358 10*3/ ?L. The reference r stefanie was not used to interpret this result as normal/abnormal . MPV (test code = 12.4 fL 9.5-12.9 25533-2) NRBC/100 WBC (test See_Comment [Automat ed code = 3595094666) message] The system which generated this result transmitted reference range : 0.0 - 10.0 /100 WBCs. The refer ence range was not u sed to interpret th is result as normal/abnormal . NRBC x10^3 (test code See_Comment [Auto mated = 8728465599) message] The s ystem which generated this result transmitted reference range : 10*3/?L. The reference range was not used to interpret this result as normal/abnormal . GRAN MAT (NEUT) % 63.1 % (test code = 770-8) IMM GRAN % (test code 1.30 % = 9434998863) LYMPH % (test code = 26.3 % 736-9) MONO % (test code = 6.4 % 5905-5) EOS % (test code = 2.1 % 713-8) BASO % (test code = 0.8 % 706-2) GRAN MAT x10^3(ANC) 2.45 10*3/uL 1.88-7.09 (test code = 5493188374) IMM GRAN x10^3 (test 0.05 10*3/uL 0.00-0.06 code = 3494349658) LYMPH x10^3 (test code 1.02 10*3/uL 1.32-3.29 L = 731-0) MONO x10^3 (test code 0.25 10*3/uL 0.33-0.92 L = 742-7) EOS x10^3 (test code = 0.08 10*3/uL 0.03-0.39 711-2) BASO x10^3 (test code 0.03 10*3/uL 0.01-0.07 = 704-7) Lab Interpretation Abnormal (test code = 33195-1) [facility] [id number] 22:15:00 Test Item Value Reference Range Interpretation Comments POCT PREG (test code = 1605) NEgative On board controls acceptable with C pass Line (test code = 3574) POCT PREG LOT # (test code = 3575) [id number] POCT PREG TEST DATE (test code = 3576) Lab Interpretation (test code = Normal 10245-1) [facility] URINALYSIS, [id number] 16:16:00 Test Item Value Reference Range Interpretation [...] APPEAR (test code slightly cloudy = 3267) [facility] URINALYSIS, [id number] 16:16:00 Test Item Value Reference Range Interpretation [...] APPEAR (test code slightly cloudy = 3267) [facility] HEMOGLOBIN A1C [id number] 14:54:00 Test Item Value Reference Range Interpretation Comments POCT HBA1C (test code = 4548-4) 4.6 % 4-6 [facility] HEMOGLOBIN A1C [id number] 14:54:00 Test Item Value Reference Range Interpretation Comments POCT HBA1C (test code = 4548-4) 4.6 % 4-6 [facility] GLUCOSE (AUTOMATED)2022-03-02 13:11:54 Test Item Value Reference Range Interpretation Comments POCT GLU (test code = 4391183391) 137 mg/dL 70-110 H Lab Interpretation (test code = Abnormal 95939-0) [facility] GLUCOSE (AUTOMATED)2022-03-02 13:11:54 Test Item Value Reference Range Interpretation Comments POCT GLU (test code = 4867462880) 137 mg/dL 70-110 H Lab Interpretation (test code = Abnormal 08186-7) [facility] [id number] 12:59:00 Test Item Value Reference Range Interpretation Comments POCT Glu (age>30days) (test code = 137 mg/dL 70-110 A 3342) Lab Interpretation (test code = Abnormal 76315-8) [facility] [id number] 12:59:00 Test Item Value Reference Range Interpretation Comments POCT Glu (age>30days) (test code = 137 mg/dL 70-110 A 3342) Lab Interpretation (test code = Abnormal 58577-2) [facility] [id number] 12:48:00 Test Item Value Reference Range Interpretation Comments POCT PREG (test code = 1605) Negative On board controls acceptable with Yes C Line (test code = 3574) POCT PREG LOT # (test code = 3575) [id number] POCT PREG TEST DATE (test 2023-06-25 code = 3576) [facility] [id number] 12:48:00 Test Item Value Reference Range Interpretation Comments POCT PREG (test code = 1605) Negative On board controls acceptable with Yes C Line (test code = 3574) POCT PREG LOT # (test code = 3575) [id number] POCT PREG TEST DATE (test 2023-06-25 code = 3576) [facility]
--- NOTE | 2023-07-12 16:33 | RAD REPORT ---
EXAM DESCRIPTION: CT - Abdomen Pelvis Wo Contrast - 07/12/2023 3:22 pm CLINICAL HISTORY: ABD PAIN COMPARISON: Abdomen Pelvis W Contrast dated 12/15/2022; Stone Protocol dated 12/09/2022; Abdomen P michelle Wo Contrast dated 10/15/2022; Abdomen Pelvis W Contrast dated 10/09/2022 TECHNIQUE: Thin cut axial CT imaging of the abdomen and pelvis was performed without IV contrast. Mu ltiplanar reformats were generated and reviewed. All CT scans are performed using dose optimization technique as appropriate and may include automated exposure control or mA/KV adjustment according to patient size. FINDINGS: No suspicious findings in the lung bases. Utrj-mk-gukjcxvu bilateral layering effusions, l arger on the right. The liver and spleen are enlarged, with the spleen measuring up to 19.7 cm in long axis. Status post cholecystectomy. Adrenal glands, and pancreas show no suspicious findings. No intra or extrahepatic b iliary ductal dilation. Symmetric renal contour, without suspicious parenchymal findings within limits of noncontrast techniq ue. No evidence of radiopaque calculi or hydroureteronephrosis. No dilated bowel loops or bowel wall thickening. Status post partial colonic resection, with sequelae of colostomy and ileostomy creation in the right flank. Moderate free ascites. No free air or inflam matory stranding. No hernia, mass or bulky lymphadenopathy. The urinary bladder is decompressed with Capone catheter in place. No suspicious bony findings. Diffuse osteopenia limits evaluation. Pronounced body wall edema. IMPRESSION: Hepatosplenomegaly. Moderate free ascites and onmz-xi-ytlpnxoz bilateral layering effusi ons as well as pronounced body wall edema. Please correlate for fluid overload. Status post partial colonic resection. Sequelae of colostomy and ileostomy creation in the right flan k. No evidence of bowel obstruction.
--- NOTE | 2023-07-12 16:42 | ER ---
Nurse's Notes [facility] Name: Linda Rahman Age: 47 yrs Sex: Female : 1975 Arrival Date: 07/12/2023 Time: 14:05 Bed 5 Private MD: Diagnosis: Anasarca;Anemia, unspecified;Abdominal pain, Generalized Presentation: 07/12 14:12 Chief complaint: Patient states: Not feeling well. Ileostomy has drained 1500 ml of ll1 output from 6 AM-2PM. No fever, + chills. Coronavirus screen: Vaccine status: Patient reports receiving the 2nd dose of the covid vaccine. Client denies travel out of the [place] in the last 14 days. At this time, the client does not indicate any symptoms associated with coronavirus-19. Ebola Screen: Patient denies travel to an Ebola-affected area in the 21 days before illness onset. Initial Sepsis Screen: Does the patient meet any 2 criteria? No. Patient's initial sepsis screen is negative. Does the patient have a suspected source of infection? Yes: Acute abdominal pain. Risk Assessment: Do you want to hurt yourself or someone else? Patient reports no desire to harm self or others. Onset of symptoms was July 12, 2023. 14:12 Method Of Arrival: EMS ll1 14:12 Acuity: [place] 3 ll1 Historical: - Allergies: 14:11 Amoxicillin; ll1 14:11 Codeine; ll1 14:11 Demerol; ll1 14:11 Geodon; ll1 14:11 Meclizine; ll1 14:11 Tessalon Perles; ll1 - PMHx: 14:11 Anemia; angina pectoris; angina pectoris; Anxiety; Anxiety; Asthma; Chronic Abdominal ll1 Pain; Chronic Abdominal Pain; Depression; diabetes mellitus; diabetes mellitus; Hypertensive disorder; Hypothyroidism; Migraine; - PSHx: 14:11 Cholecystectomy; tubal ligation; ll1 - Immunization history:: Adult Immunizations up to date. - Social history:: Smoking status: Patient denies any tobacco usage or history of. Screenin:43 [facility] ED Fall Risk Assessment (Adult) History of falling in the last 3 months, ld1 including since admission No falls in past 3 months (0 pts). Abuse screen: Denies threats or abuse. Denies injuries from another. Nutritional screening: No deficits noted. Tuberculosis screening: No symptoms or risk factors identified. Assessment: 14:43 General: Appears in no apparent distress. comfortable, Behavior is calm, cooperative, ld1 appropriate for age. Pain: Denies pain. Neuro: Level of Consciousness is awake, alert, obeys commands, Oriented to person, place, time, situation. Cardiovascular: Capillary refill < 3 seconds Patient's skin is warm and dry. Rhythm is sinus rhythm. Respiratory: Airway is patent Respiratory effort is even, unlabored. GI: Abdomen is flat, non-distended, Ileostomy site is clean and dry. Reports diarrhea. : No signs and/or symptoms were reported regarding the genitourinary system. : Urine is clear. EENT: No signs and/or symptoms were reported regarding the EENT system. Derm: No signs and/or symptoms reported regarding the dermatologic system. Musculoskeletal: No signs and/or symptoms reported regarding the musculoskeletal system. 15:47 Reassessment: Patient appears in no apparent distress at this time. No changes from ld1 previously documented assessment. Patient and/or family updated on plan of care and expected duration. Pain level reassessed. 17:00 Reassessment: Patient appears in no apparent distress at this time. No changes from ld1 previously documented assessment. Patient and/or family updated on plan of care and expected duration. Pain level reassessed. 18:37 Reassessment: Patient appears in no apparent distress at this time. No changes from ld1 previously documented assessment. Patient and/or family updated on plan of care and expected duration. Pain level reassessed. Vital Signs: 14:12 BP 102 / 74; Pulse 94; Resp 18; Temp 98.7; Pulse Ox 96% ; Weight 51.26 kg; Height 5 ft. ll1 4 in. ; Pain 9/10; 14:43 BP 96 / 68; Pulse 88; Resp 18; Temp 98.8(O); Pulse Ox 100% on R/A; ld1 15:47 BP 93 / 70; Pulse 79; Resp 18; Pulse Ox 97% on R/A; ld1 16:30 BP 94 / 69; Pulse 86; Resp 18; Pulse Ox 100% ; ld1 17:30 BP 108 / 73; Pulse 88; Resp 18; Pulse Ox 100% on R/A; ld1 18:30 BP 101 / 70; Pulse 86; Resp 18; Pulse Ox 100% on R/A; ld1 20:30 BP 98 / 73; Pulse 86; Resp 16; Pulse Ox 98% ; bp 14:12 Body Mass Index 19.40 (51.26 kg, 162.56 cm) ll1 14:12 Pain Scale: Adult [facility] ED Course: 14:10 Patient arrived in ED. ll1 14:11 Enrike Moore DO is Attending Physician. ms3 14:11 Arm band placed on Patient placed in an exam room, on a stretcher. ll1 14:14 Triage completed. ll1 14:42 Bren Moore, RN is Primary Nurse. ld1 14:43 Patient has correct armband on for positive identification. Placed in gown. Bed in low ld1 position. Call light in reach. Side rails up X2. quality assurance monitor on. Pulse ox on. NIBP on. Door closed. Noise minimized. Warm blanket given. 14:43 CMP Sent. ld1 14:43 Lipase Sent. ld1 14:43 No provider procedures requiring assistance completed. Pt came with vazquez catheter. ld1 Inserted saline lock: 22 gauge in right antecubital area, using aseptic technique. Blood collected. Patient maintains SpO2 saturation greater than 95% on room air. 15:22 Abdomen In Process Unspecified. EDMS 16:40 Paris Li MD is Hospitalizing Provider. ms3 17:51 initiated transfer to [facility]. bd 17:54 pt denied due to no capacity at this time, per Zoey Morales. bd 18:13 initiated transfer to [facility]. bd 18:38 Cleaned of incontinence. Ileostomy bag emptied. ld1 18:49 pt accepted in transfer to [facility] by dr oLtt, admin approval given by noy Colvinpt [facility]. 20:38 Patient transferred, IV remains in place. bp Administered Medications: 14:43 Drug: NS 0.9% IV 1000 ml IV at 1 bolus Per protocol; 1000 mL bolus Route: IV; Rate: 1 ld1 bolus; Site: right antecubital; 20:39 Follow up: IV Status: Completed infusion; IV Intake: 1000ml bp Medication: 14:43 VIS not applicable for this client. ld1 Intake: 20:39 IV: 1000ml; Total: 1000ml. bp Outcome: 16:41 Decision to Hospitalize by Provider. ms3 17:32 ER care complete, transfer ordered by MD. ms3 20:38 Transferred by ground EMS to [facility], Transfer form completed. bp 20:38 Condition: stable 20:38 Instructed on the need for transfer, 20:54 Patient left the ED. bp Signatures: Dispatcher [employer] EDMS Gracie Hurst Brian, RN RN Cameron Whitley RN RN ll1 Enrike Moore DO DO ms3 Bren Moore RN RN ld1
--- NOTE | 2023-07-12 16:42 | EDPHYS ---
Physician Documentation [facility] Name: Linda Rahman Age: 47 yrs Sex: Female : 1975 Arrival Date: 07/12/2023 Time: 14:05 Bed 5 Private MD: ED Physician Enrike Moore HPI: 07/12 14:21 This 47 yrs old Female presents to ER via EMS with complaints of General ms3 Weakness. 14:21 47-year-old female with past medical history of anemia, angina, anxiety, asthma, ms3 chronic abdominal pain, diabetes, hypertension presents via clued EMS from [facility]. Patient states she was recently discharged from [facility] after 3-month hospitalization. Would like nursing facility states patient has had excessive fluid coming to her ileostomy. Patient has had 1500 mL between 6 AM and 2 PM. Patient notes she has also had chills today. EMS notes blood pressure 113/70, temperature 97.9, blood glucose level 170. Patient states she is having severe generalized abdominal pain at this time.. Historical: - Allergies: 14:11 Amoxicillin; ll1 14:11 Codeine; ll1 14:11 Demerol; ll1 14:11 Geodon; ll1 14:11 Meclizine; ll1 14:11 Tessalon Perles; ll1 - PMHx: 14:11 Anemia; angina pectoris; angina pectoris; Anxiety; Anxiety; Asthma; Chronic Abdominal ll1 Pain; Chronic Abdominal Pain; Depression; diabetes mellitus; diabetes mellitus; Hypertensive disorder; Hypothyroidism; Migraine; - PSHx: 14:11 Cholecystectomy; tubal ligation; ll1 - Immunization history:: Adult Immunizations up to date. - Social history:: Smoking status: Patient denies any tobacco usage or history of. ROS: 14:21 MS/Extremity: Negative for injury and deformity, Skin: Negative for injury, rash, and ms3 discoloration, 14:21 Neck: Negative for injury, pain, and swelling, Cardiovascular: Negative for chest pain, and palpitations. Respiratory: Negative for shortness of breath, cough, wheezing, and pleuritic chest pain, 14:21 Constitutional: Positive for chills, 14:21 Abdomen/GI: Positive for abdominal pain, Exam: 14:21 Constitutional: This is a well developed, well nourished patient who is awake, alert, ms3 and in no acute distress. Head/Face: Normocephalic, atraumatic. Neck: Trachea midline, no cervical lymphadenopathy. Supple, full range of motion without nuchal rigidity, or vertebral point tenderness. No Meningismus. Chest/axilla: Normal chest wall appearance and motion. Nontender with no deformity. Cardiovascular: Regular rate and rhythm with a normal S1 and S2. No gallops, murmurs, or rubs. Normal PMI, no JVD. No pulse deficits. Respiratory: Lungs have equal breath sounds bilaterally, clear to auscultation and percussion. No rales, rhonchi or wheezes noted. No increased work of breathing, no retractions or nasal flaring. 14:21 Abdomen/GI: Inspection: abdomen appears normal, Bowel sounds: normal, Palpation: moderate abdominal tenderness, in all quadrants, Vital Signs: 14:12 BP 102 / 74; Pulse 94; Resp 18; Temp 98.7; Pulse Ox 96% ; Weight 51.26 kg; Height 5 ft. ll1 4 in. ; Pain 9/10; 14:43 BP 96 / 68; Pulse 88; Resp 18; Temp 98.8(O); Pulse Ox 100% on R/A; ld1 15:47 BP 93 / 70; Pulse 79; Resp 18; Pulse Ox 97% on R/A; ld1 16:30 BP 94 / 69; Pulse 86; Resp 18; Pulse Ox 100% ; ld1 17:30 BP 108 / 73; Pulse 88; Resp 18; Pulse Ox 100% on R/A; ld1 18:30 BP 101 / 70; Pulse 86; Resp 18; Pulse Ox 100% on R/A; ld1 20:30 BP 98 / 73; Pulse 86; Resp 16; Pulse Ox 98% ; bp 14:12 Body Mass Index 19.40 (51.26 kg, 162.56 cm) ll1 14:12 Pain Scale: Adult ll1 MDM: 14:11 Patient medically screened. ms3 14:21 Differential diagnosis: non-specific abd pain, Dehydration vs Bowel perforation. ms3 18:50 ED course: BSC at [facility]. Discussed case with Dr Mendes and he accepts patient ms3 as tele obs. 07/12 14:20 Order name: CBC with Diff; Complete Time: 15:08 ms3 07/12 14:20 Order name: CMP; Complete Time: 15:08 ms3 07/12 14:20 Order name: Lipase; Complete Time: 15:08 ms3 07/12 15:02 Order name: CBC Smear Scan; Complete Time: 15:08 EDMS 07/12 15:18 Order name: Abdomen ; Complete Time: 16:34 EDMS 07/12 14:20 Order name: IV Saline Lock; Complete Time: 14:43 ms3 07/12 14:20 Order name: Labs collected and sent; Complete Time: 14:43 ms3 Administered Medications: 14:43 Drug: NS 0.9% IV 1000 ml IV at 1 bolus Per protocol; 1000 mL bolus Route: IV; Rate: 1 ld1 bolus; Site: right antecubital; 20:39 Follow up: IV Status: Completed infusion; IV Intake: 1000ml bp Disposition Summary: 07/12/23 17:32 Transfer Ordered Notes: Reason: Higher level of care ms3 Condition: Stable(07/12/23 17:32) ms3 Problem: new(07/12/23 17:32) ms3 Symptoms: are unchanged(07/12/23 17:32) ms3 Transfer Location: [facility](07/12/23 18:50) ms3 Accepting Physician: Dr Lott(07/12/23 20:54) bp Diagnosis - Anasarca ms3 - Anemia, unspecified(07/12/23 17:32) ms3 - Abdominal pain, Generalized(07/12/23 17:32) ms3 Forms: - Medication Reconciliation Form ms3 - SBAR form ms3 Signatures: Dispatcher [employer] EDMS Michel Quevedo, RN RN bp Cameron Wren RN RN ll1 Enrike Moore DO DO ms3 Bren Moore RN RN ld1 Corrections: (The following items were deleted from the chart) 14:31 14:21 Data reviewed: ms3 ms3 15:18 14:21 Abdomen Pelvis W Con+CT.RAD.BRZ ordered. EDMS EDMS 17:30 16:41 Inpatient Admission ms3 ms3 17:30 16:41 Allen Lid ms3 ms3 17:30 16:41 Telemetry/MedSurg (observation) ms3 ms3 17:30 16:41 Stable ms3 ms3 17:30 16:41 new ms3 ms3 17:30 16:41 are unchanged ms3 ms3 17:30 16:41 Standard ms3 ms3 17:30 16:41 ms3 ms3 17:30 16:41 Anasarca ms3 ms3 17:30 16:41 Anemia, unspecified ms3 ms3 17:30 16:41 Abdominal pain, Generalized ms3 ms3 18:50 17:32 ms3 ms3 18:50 17:32 [facility] ms3 ms3 20:54 18:50 Dr Lott ms3 bp
--- NOTE | 2023-07-12 18:21 | P.CNS ---
Date of Consult: 07/12/23 Reason for Consult: Patient with UTI Requesting Physician: Enrike Moore Chief Complaint: Patient with UTI History of Present Illness: Patient is a 47-year-old female with a history of hypertension, CAD, diabetes type 2, hemolytic anemia with hemolytic crisis who presents to the hospital with dehydration. Patient had prolonged hospital stay at the end of November for 2-1/2 months at [facility]. She was at her hospital and she was admitted for intractable low back pain. When I saw her in the morning she was having severe pain and her hemoglobin was initially 9 and had dropped to 5.4 within hours. Her lactic acid was 15 and her bilirubin had increased significantly. Patient with hemolytic crisis and we initiated transfer for plasmapheresis. Central line was placed and patient was given blood but her hemoglobin was not improving. Patient was life flighted to [facility] at that time. While she was at [facility] she had numerous complications. She she had numerous abdominal surgeries and had a colostomy and ileostomy. She also went into liver failure and renal failure failure and was on hemodialysis. She had extensive ischemia of all 4 extremities as well. However, she did not require amputation. After 2 -1/2 months patient recovered and was discharged to the nursing facility. She has been in and out of 5 nursing facilities and she has been in and out of numerous hospitals. She has had an additional hospitalization where she had hemolytic crisis in the past. I was asked to admit the patient to our facility. Because we do not have the ability to do emergent plasmapheresis or IVIG therapy she is not safe to be at our facility. She goes in a hemolytic crisis from unknown etiology. If this was to happen at our facility she is at a high risk of mortality. I did treat the patient many months ago when she developed her hemolytic crisis. She looks much worse than when we had admitted her because of everything she has gone through since she had the hemolytic crisis. She has had an additional episode of hemolysis occur even after that episode according to the family. And she also had an episode occur a few years prior to the episodein November. They have not figured out exactly what is causing her hemolysis, but they are suspicious of iodine/contrast. Allergies amoxicillin [Amoxicillin] Allergy (Mild, Verified 12/16/22 03:18) Hives benzonatate [From Tessalon Perles] Allergy (Verified 12/16/22 03:18) Itching/Hives/Rash meperidine HCl [From Demerol] Allergy (Verified 12/16/22 03:18) Itching/Hives/Rash ziprasidone HCl [From Geodon] Allergy (Verified 12/16/22 03:18) Itching meclizine Adverse Reaction (Intermediate, Verified 12/16/22 03:18) Itching diphenhydramine [From Benadryl] Adverse Reaction (Verified 12/16/22 03:18) Anaphylaxis lorazepam Adverse Reaction (Verified 12/16/22 03:18) Anaphylaxis ziprasidone mesylate [From Geodon] Adverse Reaction (Verified 12/16/22 03:18) Anaphylaxis - Past Medical/Surgical History Diabetic: Yes -: type 2 diabetes -: pernicious anemia -: asthma -: major depression -: hypothyroidism -: anxiety -: neuropathy -: hypertension -: high cholesterol -: learning disability -: sleep apnea -: sleep apnea -: cholecystecomy -: tubal ligation -: splenectomy Psychosocial/ Personal History: Patient is on disability, lives at home with her family - Family History Mother Medical History: Hypertension, Kidney disease Notes: celiac, oa, Father Medical History: Hypertension, Diabetes, Other (see notes) Notes: high cholesterol - Social History Smoking Status: Unknown if ever smoked Alcohol use: No CD- Drugs: No Caffeine use: Yes Physical Examination General: Alert, In no apparent distress, Oriented x2 Respiratory: Clear to auscultation bilaterally, Normal air movement Cardiovascular: Regular rate/rhythm, Normal S1 S2 Gastrointestinal: Normal bowel sounds, Hypoactive, Soft and benign, Non- distended Musculoskeletal: No clubbing, No swelling Integumentary: No rashes Neurological: Sensation intact, Cranial nerves 3-12 intact, Abnormal gait, Abnormal speech, Abnormal strength Laboratory Data (last 24 hrs) 07/12/23 07/12/23 14:30 14:30 WBC 2.80 L Hgb 8.2 L Hct 23.6 L Plt Count 249 Sodium 138 Potassium 4.4 BUN 5 L Creatinine 1.10 H Glucose 133 H Total Bilirubin 0.4 AST 29 ALT 26 Alkaline Phosphatase 260 H Lipase 9 L - Problems (1) Generalized weakness Current Visit: Yes Status: Acute (2) Hemolytic crisis Current Visit: Yes Status: Acute (3) History of hemolytic anemia Current Visit: Yes Status: Acute (4) History of plasmapheresis Current Visit: Yes Status: Acute (5) History of hemodialysis Current Visit: Yes Status: Acute (6) 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 Patient was sent here for generalized weakness. She was actually released from [facility] yesterday. [facility] for [facility]. They sent her here because of generalized weakness. The whole point in her going to a correction facility was to get therapy. Her labs show anemia with elevated RDW. She also has leukopenia. She also has chronic kidney disease-this is an improvement from her history of renal failure and requiring hemodialysis in the past after she had the episode of her hemolytic crisis. I believe the patient does not really meet criteria for inpatient hospitalization. She should be able to go back home unless we find some underlying etiology to admit her. [facility] for [facility] and she is being admitted for generalized weakness. If she does need to be admitted she needs to be admitted to a tertiary care facility where they have the ability to do emergent plasmapheresis. We do not have that capability here and she developed hemolytic crisis from unknown etiology. If she is hospitalized she is more likely going to be exposed to numerous medications and she could develop h emolytic crisis once again. I spoken with the family and their preference is for her to be at a tertiary care facility where they can treat her history of multiple episodes of hemolytic crisis quickly if that develops. If she was to be admitted here and that is to happen here with her being so frail at this point she is a high risk of having a mortality occur. My recommendation would be for her to be transferred back to nursing facility for physical therapy unless we have an underlying diagnosis for admission. If she does need to be admitted to hospital then she should be admitted to a tertiary care facility which can treat her underlying hemolytic crisis secondary to unknown etiology.
[2023-07-12 21:47] VITALS: TEMP 98.8
[2023-07-12 21:59] VITALS: BP 98/73; O2SAT 98
== END 2023-07-12 20:54 | disposition short-term general hospital (02) ==
LOC: ER 14:05
DX: R60.1 Generalized edema (principal); R10.84 Generalized abdominal pain; D64.9 Anemia, unspecified; I10 Essential (primary) hypertension; E11.9 Type 2 diabetes mellitus without complications; Z88.1 Allergy status to other antibiotic agents; Z88.5 Allergy status to narcotic agent; Z88.8 Allergy status to other drugs, medicaments and biological substances
CPT/HCPCS: 85025; 36415; 83690; 80053; 74176; J7030

== ENCOUNTER 2023-07-30 22:41 | Inpatient (IN) | payer OTHER ==
--- OUTSIDE RECORDS SUMMARY | 2023-07-31 00:07 | XMS REPORT | Continuity of Care Document ---
:1975 Author Organization [facility] t Address [address] [place] [address] Care Team Providers Name Role Phone TRAY JOLLY Primary Care Physician Unavailable LAKISHA MAN Attending Clinician Unavailable CECILE ASHER Attending Clinician Unavailable Iva Rivera Attending Clinician IVA RIVERA Attending Clinician Unavailable LAUREN CURTIS Attending Clinician Unavailable Lauren Curtis Attending Clinician Cuca Yi Attending Clinician Unavailable Peterson Almanza Attending Clinician Unavailable Johanny Ornelas Attending Clinician Lelia Hassan Attending Clinician Unavailable Dom Burton Attending Clinician Unavailable TRAY JOLLY Attending Clinician Unavailable Yesika Luo Attending Clinician Unavailable Doctor Unassigned, [place] Attending Clinician Unavailable Aubrie White Attending Clinician AUBRIE LIN Attending Clinician Unavailable Tarun Oliver Attending Clinician Unavailable JENNIFER CARBONE Attending Clinician Unavailable Dafne Navarro MD Attending Clinician Jennifer Carbone MD Attending Clinician DEON GARCIA Attending Clinician Unavailable NAV ANTONIO Attending Clinician Unavailable LISANDRO DAILEY Attending Clinician Unavailable DR DANNI SPANGLER Attending Clinician Unavailable ROCK PORTILLO Attending Clinician Unavailable LAZARO WHEELER Attending Clinician Unavailable Debra Brownlee Attending Clinician Unavailable Yelena Pardo MD Attending Clinician Sea Gibson MD Attending Clinician Bernarda Adorno MD Attending Clinician MARIBEL TINSLEY Attending Clinician Unavailable Tray Jolly MD Attending Clinician Chao Sahu MD Attending Clinician Constantino Morales CRNA Attending Clinician [phone] Ricki Martinez MD Attending Clinician Lizbet Rodriguez MD Attending Clinician Jyothi Hanks Attending Clinician Unavailable AUBRIE SCHAEFFER Attending Clinician Unavailable Roseline Parisi MA Attending Clinician Unavailable Bon Hall MD Attending Clinician Andrea Palua MD Attending Clinician Estrada, Neris M Attending Clinician Unavailable Nav Antonio MD Attending Clinician Alvina CLOCK AND WATCH HANDS DIPPER, Maribel Attending Clinician Lakeshia HOLLINS, Cecile Attending Clinician Saira FUCHS MD, John G Attending Clinician Scot [facility], Vik Fleming Attending Clinician SHENA PEREA Attending Clinician Unavailable Shena Perea DO Attending Clinician Van HOLLINS, Elisha Attending Clinician ELISHA ARAUJO Attending Clinician Unavailable Ashlie HOLLINS, Lisandro Attending Clinician [phone] Jose Antonio HOLLINS, Livia Campos Attending Clinician Melanie HOLLINS, Pantera Rider Attending Clinician PANTERA NAVARRO Attending Clinician Unavailable GREG JACKSON Attending Clinician Unavailable Kvng Stark RN Attending Clinician Unavailable Louis JOHNS, Kemal Packer Attending Clinician Geovanny Willis MD Attending Clinician Deshaun Saavedra MD Attending Clinician Vern Bernardo DO Attending Clinician [phone], [facility] Attending Clinician Unavailable MIROSLAVA MENDOZA Attending Clinician Unavailable LAYNE ROTHMAN Attending Clinician Unavailable Beckie Lopez Attending Clinician [phone] Layne Rothman MD Attending Clinician BECKIE EUGENE Attending Clinician Unavailable DESTINY ONEILL Attending Clinician Unavailable Destiny Oneill MD Attending Clinician Alida FERNANDO, Melony Truong Attending Clinician Unavailable KAMILLA ZHAO Attending Clinician Unavailable Misty JOHNS, Kamilla Attending Clinician AN HINTON Attending Clinician Unavailable STELLA WORLEY Attending Clinician Unavailable STELLA WORLEY Attending Clinician Unavailable , Ry Carbajal Attending Clinician Unavailable DAPHNEY SÁNCHEZ Attending Clinician Unavailable BON AGUILAR Attending Clinician Unavailable VIK OLIVEIRA Attending Clinician Unavailable Atul HOLLINS, Ricardo K.H. Attending Clinician ISAC BARR Attending Clinician Unavailable Agustina HOLLINS, Sheri Attending Clinician SHERI BERRIOS Attending Clinician Unavailable Vik Oliveira MD Attending Clinician CAPRICE HENRIQUEZ Attending Clinician Unavailable Young Zarate RN Attending Clinician Unavailable Isac Barney Attending Clinician Wil HOLLINS, An العراقي Attending Clinician Miroslava Mendoza MD Attending Clinician Genesis Roman LMSW Attending Clinician GABRIELLA SALAS Attending Clinician Unavailable ANDREA PAULA Attending Clinician Unavailable Daphney Sánchez NP Attending Clinician Unavailable Corry Woodall Attending Clinician CORRY COON Attending [...] ROGE TENORIO Attending Clinician Unavailable RICARDO POLLARD K.H. Attending Clinician Unavailable MARCELINA VALERA Attending Clinician Unavailable MARCELINA VALERA Attending Clinician Unavailable TAMMY LINDO Attending Clinician Unavailable LIANA JOSEPH Attending Clinician Unavailable SHANTI DUCKWORTH Attending Clinician Unavailable BALJIT CURRY Attending Clinician Unavailable DORITA MORE Attending Clinician Unavailable FABRICIO DOSS Attending Clinician Unavailable CL DEGROOT Attending Clinician Unavailable LAKISHA MAN Admitting Clinician Unavailable CECILE ASHER Admitting Clinician Unavailable Federico Amos Admitting Clinician FEDERICO AMOS Admitting Clinician Unavailable DOE LI Admitting Clinician Unavailable Doe Li Admitting Clinician Cuca Yi Admitting Clinician Unavailable Physician, No Primary or Family Admitting Clinician UnavailBridget Storey Admitting Clinician Lelia Hassan Admitting Clinician Unavailable Yesika Luo Admitting Clinician Unavailable UNDEFINED Admitting Clinician Unavailable JENNIFER CARBONE Admitting Clinician Unavailable Jennifer Carbone MD Admitting Clinician LISANDRO DAILEY Admitting Clinician Unavailable DR DANNI SPANGLER Admitting Clinician Unavailable MU WANG Admitting Clinician Unavailable ROCK PORTILLO Admitting Clinician Unavailable Neris Estrada Admitting Clinician Unavailable LIVIA DEL ROSARIO Admitting Clinician Unavailable Deshaun Saavedra MD Admitting Clinician DESHAUN SAAVEDRA Admitting Clinician Unavailable STELLA WORLEY Admitting Clinician Unavailable Cecile Asher MD Admitting Clinician AN [place] Admitting Clinician Unavailable DESTINY ONEILL Admitting Clinician Unavailable Eladia Admitting Clinician Unavailable CAPRICE HENRIQUEZ Admitting Clinician Unavailable Payers Payer Name Policy Type Policy Number Effective Date Expiration Date S ource MEDICAID [place] [id number] 2022 00:00:00 [facility]/[facility] DUAL [id number] 2021 COMP CHOICE PPO DSNP 00:00:00 [facility] [place] STAR PLUS [id number] 2021 00:00:00 [employer]LLMED MEDICARE [id number] 2022 00:00:00 [facility] STAR [id number] 2016 PLAN 00:00:00 [id number] 1959 00:00:00 [facility] [id number] 2022 2022 [facility] HMO 00:00:00 00:00:00 [facility] DAY8 2021 (MEDICARE 00:00:00 REPLACEMENT HMO) [facility] [id number] 2020 BEHAVIORAL SOLUTIONS 00:00:00 Problems Condition Condition Condition Status Onset Resolution Last Treating Co mments Source Name Details Category Date Date Treatment Clinician Date ANASARCA, Diagnosis Active 2022-092023-07-12 Memoria ANEMIA, ANASARCA, 0 23:23:00 l PLEURAL ANEMIA, 00:00: Tay EFFUSION PLEURAL 00 EFFUSION Active 07/12/2023 [facility] DEHYDRATIO DEHYDRATI Diagnosis Active 2022-092023-07-20 Memoria N ON Active 20:22:00 l 07/12/2023 00:00: Cecil hampton [address] IRREGULAR IRREGULAR Diagnosis Active 2023-06-[facility] 06-17 10:08:00 l Active 00:00: Tay 06/17/2023 00 [facility] HYPONATREM HYPONATRE Diagnosis Active 2023-07-25 Memoria IA, ACUTE GORDON, ACUTE 06-17 21:47:00 l UTI, OTHER UTI, OTHER 00:00: He rmann [place], [place] 00 Active 06/17/2023 [facility] AMS AMS Diagnosis Active 2023-05-01 [facility] oria Active 04-30 19:57:00 l 04/30/2023 00:00: Cecil hampton [facility] 00 Tay CKD CKD Diagnosis Active 2023-05-13 Mem oria Active 04-30 21:57:00 l 04/30/2023 00:00: Cecil hampton [facility] 00 Tay Anemia Anemia Disease Active Univers 5-26 ity of 00:00: [place] 00 Medical Branch Chest Chest Disease Active Univers pain, pain, 5-25 ity of unspecifie [place] d type 00 Medical [place] Hyponatrem Hyponatrem Disease Active U nivers ia ia 5-25 ity of 00:00: [place] 00 Medical Branch Abdominal Abdominal Disease Active 2023-[address] [facility] [facility]15 [facility] 00:[facility]: Medical 00 [place] Debility Debility Disease [facility] 00[facility] 00 Center Urinary Urinary Disease Active [facility] retention retention 5-15 [facility] 00:00: Medical 00 Center Candidemia Candidemia Disease Recurre Overvie w: [facility] 00:[facility]: g of this 00 note Center might be different from the original. 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 3-23 [facility] 00:00: Medical 00 [place] Intellectu Intellectu Disease Active [facility] al al 1-30 [facility] disability disability 00:00: Me dical 00 [place] 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 00:00: [facility] 00 [place] Migraines Migraines Disease Active Uni vers 1-24 ity of 00:00: [address] Branch Allergic Allergic Disease Active Unive rs rhinitis rhinitis 1-24 ity of 00:00: [address] Branch (HFpEF) (HFpEF) Disease Active Univers heart heart 1-23 ity of failure failure 00:00: [place] with with 00 [facility] preserved preserved Bran ch ejection ejection fraction fraction Diarrhea, Diarrhea, Disease Active Uni vers unspecifie unspecifie 1-20 it y of d type d type 00:00: [place] [id number] Medical Branch Constipati Constipati Disease Active U nivers on, on, 1-20 ity of unspecifie [place]spec[place]ie [place] [facility] constipati constipati Br anch on type on [...] Disease Active Univers 1-20 ity of 00:00: [place] 00 Medical Branch Nausea Nausea Disease Active Univers 1-20 ity of 00:00: [place] [facility] Gastritis Gastritis Disease Active Uni vers without without 1-20 ity of bleeding, bleeding, 00:[place] un[place] 00 Me dical d d Branch chronicity chronicity , , unspecifie unspecifie d d gastritis gastritis type type Overflow Overflow Disease Active Unive rs diarrhea diarrhea 1-20 ity of 00:00: [place] [facility] Allergy, Allergy, Disease Active 2021-09 [...] of metaplasia metaplasia 00:00: g of this [place] 00 note Medical might be Branch different from the original. Added automatic ally from request for surgery [id number] Chronic Chronic Disease Active Overview: Univ ers superficia superficia 4-05 Formattin ity of l l 00:00: g of this [place] gastritis gastritis 00 note Medi cipriano without without might be Branch bleeding bleeding different from the original. 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 Added automatic ally from request for surgery [id number] Indigestio Indigestio Disease Active 2020-09 Overview : Univers n n 2-15 Formattin ity of 00:00: g of this note Medical might be Branch different from the original. Added automatic ally from request for surgery [id number] Bloating Bloating Disease Active 2020-09 Overview: Un jerrod 2-15 Formattin ity of 00:00: g of this note Medical might be Branch different from the original. Added automatic ally from request for surgery [id number] Dental Dental Disease Active Univers caries caries [...] with 00 Medical hyperglyce hyperglyce Br anch gordon, gordon, without without long-term long-term current current use [...] 1-02 it y of a a 00:00: [place] [facility] Dyslipidem Dyslipidem Disease Active 2015-09 [...] Medi cipriano in in Branch remission remission Essential Essential Disease Active Uni vers hypertensi hypertensi 2-05 it y of on, benign on, benign [place] Well woman Well woman Disease Active U nivers exam exam 2-05 ity of 00:00: [place] [facility] Chest pain Chest pain Disease Active U nivers 9-13 ity of 00:00: [place] 00 [facility] Branch Hypothyroi Hypothyro Problem Active 2023-07-24 Memoria dism idism 04:36:07 l (disorder) (disorder) He rmann Active Problem 07/24/2023 [facility] Urinary Urinary Problem Active 2023-07-24 Me moria catheter catheter 04:36:07 l in situ in situ [place] (finding) (finding) Active Problem 07/24/2023 [facility] Functional Functiona Problem Active 2023-07-24 Memoria quadripleg l 04:36:07 l ia quadripleg Cecil n (disorder) ia (disorder) Active Problem 07/24/2023 [facility] Hypovolemi Problem Active 2023-07-24 M emoria c shock Hypovolemi 04:36:07 l (disorder) c shock Padmaja nn (disorder) Active Problem 07/24/2023 [facility] Pancytopen Pancytope Problem Active 2023-07-24 Memoria ia liborio 04:36:07 l (disorder) (disorder) He rmann Active Problem 07/24/2023 [facility] Schizophre Schizophr Problem Active 2023-07-24 Memoria liborio enia 04:36:07 l (disorder) (disorder) He rmann Active Problem 07/24/2023 [facility] CHRONIC CHRONIC Diagnosis Active 2023-05-13 Memoria KIDNEY KIDNEY 21:57:00 l DISEASE, DISEASE, Cecil n UNSPECIFIE UNSPECIFIE D D Active [facility] URINARY URINARY Diagnosis Active 2023-07-25 Memoria TRACT TRACT 21:47:00 l INFECTION, INFECTION, He rmann SITE NOT SITE NOT SPECIF SPECIF Active [facility] HYPO-OSMOL HYPO-OSMO Diagnosis Active 2023-07-25 Memoria ALITY AND LALITY AND 21:47:00 l HYPONATREM HYPONATREM He rmann IA IA Active [facility] DEHYDRATIO DEHYDRATI Diagnosis Active 2023-07-21 Memoria N ON Active 08:14:00 l [facility] OTHER OTHER Diagnosis Active 2023-07-25 Me moria SHOCK SHOCK 21:47:00 l Active [facility] Peripheral Peripheral Disease Active U nivers neuropathy neuropathy it y [facility] 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 ity [facility] PCOS PCOS Disease Active Univers (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) [facility] Acute Acute Disease Recurre [facility] renal renal nce [facility] failure on failure on Nv dical dialysis dialysis Center ALISSA (acute ALISSA (acute Disease Resolve 2023-02-07 2023-02-[address] kidney kidney d 00:00:00 07:28:52 [facility] injury) injury) [facility] Allergies, Adverse Reactions, Alerts Allergy Allergy Status Severity Reaction(s) Onset Inactive Treating Comm ents Source Name Type Date Date Clinician IV DA Active U "[facility] CONTRAST DOWN" 03-18 [place] 00:00: e 00 [facility] GADOLINI Allergy Active High Other [facility] [...] Contrast Dye Iodinate Propensi Active Other (See Patient C HI St d ty to Comments) 5-15 said she [facility] Contrast adverse 00:00: is Medical Media reaction 00 severely Center s allergic to CT scan IV Contrast Dye Geodon DA Active Unknown [facility] 5-14 Medical 00:00: Center 00 Amoxicil DA Active Unknown [facility] helen -14 Medical 00:00: Center 00 Codeine DA Active Unknown 2023-0 [facility] 5-14 Medical 00:00: Center 00 Demerol DA Active Unknown 2022-0 [facility] 5-14 Medical 00:00: Center 00 Tessalon DA Active Unknown 2022-0 [facility] Perles 5-14 Medical 00:00: Center 00 Meclizin DA Active Unknown 2022-0 [facility] e 5-14 Medical 00:00: Center 00 codeine DA Active [place] ITCHING 2022-0 [facility] 2-25 [place] 00:00: e 00 Medical Center amoxicil DA Active [place] HIVES 2022-0 [facility] helen 2-25 [place] 00:00: e 00 Medical Center meperidi DA Active U UNKNOWN 2022-0 [facility] ne 2-25 [place] 00:00: e 00 Medical Center diphenhy DA Active [place] SWELLING 2022-0 [facility] dramine 2-25 [place] 00:00: e 00 Medical Center meclizin DA Active SV ANAPHYLAXIS 2022-0 [facility] e 2-25 [place] 00:00: e 00 [facility] Center tomato FA Active [place] SNEEZING 2022-0 [facility] 2-25 [place] 00:00: e 00 Medical Center ziprasid DA Active SV [...] INGREDI 05-09 ity of 00:00: [place] 00 Medical Branch Tomato Propensi Active Other - See Tomato Uni vers ty to comments 04-03 sauce ity of adverse 00:00: reportedl [place] reaction 00 y causes Medica l s excessive Branch sneezing. But pt still eats it. Patient can eat tomato TOMATO DRUG Active Low Other-Cmnt 2018-0 Univer [...] Medical Branch LORAZEPA Allergy Active High Swelling 2017-1 [facility] 0[facility]02 [facility] 00:00: [...] Allergy 10-18 [facility] 00:00: Medical 00 Center Meclizin Propensi Active Anaphylaxis 2017-0 U nivers e ty to 10-18 ity of adverse 00:00: [place] reaction 00 Medical s Branch MECLIZIN DRUG Active High Anaphylaxis 2017-0 Uni vers E INGREDI 10-18 ity of 00:00: [place] 00 Medical Branch AMOXICIL Allergy Active High Hives 2015-[address] [facility] HELEN 05-30 [facility] 00:00: Medical 00 Center MEPERIDI Allergy Active High 2015-[address] [facility] [facility] HCL 05-30 [facility] 00:00: Medical 00 Center ZIPRASID Allergy Active High Hives 2014-[address] [facility] ONE HCL 05-30 [facility] 00:00: Medical 00 Center Amoxicil Drug Active Hives 2015-[address] helen Allergy 05-30 [facility] 00:00: Medical 00 Center Meperidi Drug [...] Active High Hives 2015-0 Univers HELEN INGREDI 05-30 ity of 00:00: [place] 00 Medical Branch Demerol Demerol Active Memoria l Tay Geodon Geodon Active Memoria l [place] Food Food Active Memoria Tomatoes Tomatoes l Tay contrast contrast Active Memori a media media l (iodine- (iodine- Cecil n based) based) LORazepa LORazepa Active Memori a m m l Tay codeine codeine Active Memoria l [place] amoxicil amoxicil Active Codeine Memor philippe helen schulte (substance) l Tay meclizin meclizin Active Memori a e e l [place] benzonat benzonat Active Memori a ate ate l Tay Benadryl Benadryl Active Memori a l [place] No Known DA Active [facility] Social History Social Habit Start Date Stop Date Quantity Comments Source History SDOH Social Unive rsity of Connections [facility] Med ical Together Branch History SDOH Social Unive rsity of Connections [facility] Medical Branch History SDOH Social Unive rsity of [facility] Medical Membership Branch History SDOH Social Unive rsity of [facility] Medical Meetings Branch History SDOH University o f Housing Places [facility] Gender identity [facility] [place] [facility] Sexual orientation Univer [facility] [place] [facility] History SDOH [facility] Alcohol Std Drinks Medica l Center History SDOH [facility] Alcohol Binge Medical Navin ter History SDOH [facility] Alcohol Comment Medical C enter History of Social 2023-03-07 2023-03-07 Univers ity of function 00:00:00 00:00:00 [place] [facility] Exposure to 2023-02-07 2023-02-17 Not sure University of SARS-CoV-2 (event) 00:00:00 02:13:00 [place] [facility] History SDOH 2023-02-17 2023-02-17 0 University o f Physical Activity 00:00:00 00:00:00 [place] M edical DPW Branch History SDOH 2023-02-17 2023-02-17 0 University o f Physical Activity 00:00:00 00:00:00 [place] M edical MPS Branch History SDOH 2023-02-17 2023-02-17 5 University o f Financial 00:00:00 00:00:00 [place] [facility] History SDOH Food 2023-02-17 2023-02-17 1 Univers ity of Worry 00:00:00 00:00:00 [place] [facility] History SDOK Food 2023-02-17 2023-02-17 1 Univers ity of Scarcity 00:00:00 00:00:00 [place] [facility] History SDOK 2023-02-17 2023-02-17 2 University o f Transport Med 00:00:00 00:00:00 [place] Medic al Branch History SDOH 2023-02-17 2023-02-17 2 University o f Transport Non-Med 00:00:00 00:00:00 [facility] edical Branch History SDOK 2023-02-17 2023-02-17 2 University o f Housing Unable to 00:00:00 [facility]00[facility]00 [facility] 2023-02-17 2023-02-17 2 University o f Housing Homeless 00:00:00 00:00:00 [facility] dicroshan Last Year Branch Alcohol intake 2023-02-07 2023-02-[address] [facility] es 00:00:00 00:00:00 [facility]drinker [facility] Tobacco use and 2022-10-22 2022-10-[address] [facility] kes exposure 00:00:00 00:00:00 tobacco non-user Medical Center History [facility] 2022-10-22 2022-10-[address] [facility] Alcohol Frequency 00:00:00 00:00:00 Medical Center History [facility] Social 2022-10-19 2022-10-19 5 Unive rsity of Connections Phone 00:00:00 00:00:00 [facility] History [facility] Social 2022-10-19 2022-10-19 7 Unive rsity of Connections Living 00:00:00 00:00:00 [facility] Tobacco Comment 2022-06-17 2022-06-17 10 years ago Univers ity of 00:00:00 00:00:00 [facility] Cigarettes smoked 2017-10-20 2017-10-20 Univers ity of current (pack per 00:00:00 00:00:00 [facility] day) - Reported Branch Cigarette 2017-10-20 2017-10-20 University of pack-years 00:00:00 00:00:00 [facility] History of tobacco 1982-10-20 2007-10-20 Cigarette Smoker University of use 00:00:00 00:00:00 [facility] Sex Assigned At [address] [facility] kes 00:00:00 00:00:00 [facility] Center Smoking Status Start Date Stop Date Source Tobacco smoking status 2023-07-13 07:02:49 2023-07-13 07:02:49 M anjubrooksroshan Tay Tobacco smoking status [facility] Tay Never smoked tobacco [facility] Medications Ordered Filled Start Stop Current Ordering Indication Dosage Frequency Signature Comments Components Source Medication Medication Date Date Medication? Clinician (SIG) Name Name enoxaparin 2022-09 Yes /= 30 Memori a 40 mg/0.4 0-26 mL/min, l mL 17:42: BMI < 40), Tay subcutaneou 00 0 s solution Refill(s) enoxaparin 2022-09 Yes /= 30 Memori a 40 mg/0.4 0-26 mL/min, l mL 17:42: BMI < 40), [place] subcutaneou 00 0 s solution Refill(s) loperamide 2022-09 Yes 4 mg = 2 Mem oria 2 mg oral 0-26 cap, PO, l capsule 17:14: Q6H, 0 [place] 00 Refill(s) loperamide 2022-09 Yes 4 mg = 2 Mem oria 2 mg oral 0-26 cap, PO, l capsule 17:14: Q6H, 0 [place] 00 Refill(s) Lomotil 2022-09 Yes 1 tab, PO, Sidney jorge oral tablet 0-26 QID, 0 l 17:13: Refill(s) Tay 00 Lomotil 2022-09 Yes 1 tab, PO, Sidney jorge oral tablet 0-26 QID, 0 l 17:13: Refill(s) Tay 00 octreotide 2022-09 Yes 50 Memoria 50 mcg/mL 0-26 microgram l injectable 17:11: = 1 mL, Herm ranjit solution 00 SUB-Q, TID, 0 Refill(s) octreotide 2022-09 Yes 50 Memoria 50 mcg/mL 0-26 microgram l injectable 17:11: = 1 mL, Herm ranjit solution 00 SUB-Q, TID, 0 Refill(s) cholestyram 2022-09 Yes PO, QID, 0 Memoria ine 0-26 Refill(s) l 17:10: cholestyram 2022-09 Yes PO, QID, 0 Memoria ine 0-26 Refill(s) l 17:10: albuterol 2022-09 Yes 2.49 mg = Mem oria 0.083% 0-26 3 mL, NEB, l inhalation 17:09: Q6H, PRN Her posadas solution 00 as needed for shortness of breath, # 120 ea, 3 Refill(s) albuterol 2022-09 Yes 2.49 mg = Mem oria 0.083% 0-26 3 mL, NEB, l inhalation 17:09: Q6H, PRN Her posadas solution 00 as needed for shortness of breath, # 120 ea, 3 Refill(s) magnesium 2022-09 Yes 400 mg = 1 Me moria oxide 400 0-16 tab, PO, l mg oral 16:36: Daily, X Cecil n tablet day, # 30 tab, 1 Refill(s) magnesium 2022-09 Yes 400 mg = 1 Me moria oxide 400 0-16 tab, PO, l mg oral 16:36: Daily, X Cecil n tablet 30 day, # 30 tab, 1 Refill(s) magnesium 2022-09 Yes 400 mg = 1 Me moria oxide 400 0-16 tab, PO, l mg oral 16:36: Daily, X Cecil n tablet 30 day, # 30 tab, 1 Refill(s) Lasix 20 mg 2022-09 Yes 20 mg = 1 M emoria oral tablet 0-16 tab, PO, l 16:34: Daily, # 00 30 tab, 0 Refill(s) Lasix 20 mg 2022-09 Yes 20 mg = 1 M emoria oral tablet 0-16 tab, PO, l 16:34: Daily, # 30 tab, 0 Refill(s) Lasix 20 mg 2022-09 Yes 20 mg = 1 M emoria oral tablet 0-16 tab, PO, l 16:34: Daily, # 00 30 tab, 0 Refill(s) octreotide 2022-09 Yes 50 Memoria 100 mcg/mL 0-16 microgram l injectable 16:33: = 0.5 mL, [place] r[place] solution 00 SUB-Q, TID, wean off over the period of 3-4 weeks as toleated; follow with willa Marroquin GI doctor, X 7 day, # 10.5 mL, 3 Refill(s) octreotide 2022-09 Yes 50 Memoria 100 mcg/mL 0-16 microgram l injectable 16:33: = 0.5 mL, [place] solution 00 SUB-Q, TID, wean off over the period of 3-4 weeks as toleated; follow with willa Marroquin GI doctor, X 7 day, # 10.5 mL, 3 Refill(s) octreotide 2022-09 Yes 50 Memoria 100 mcg/mL 0-16 microgram l injectable 16:33: = 0.5 mL, [place] r[place] solution 00 SUB-Q, TID, wean off over the period of 3-4 weeks as toleated; follow with willa Marroquin GI doctor, X 7 day, # 10.5 mL, 3 Refill(s) gabapentin 2022-09 Yes 100 mg = 1 M emoria 100 mg oral 0-14 cap, PO, l capsule 18:57: Q12H, # 60 Herm ranjit 00 cap, 0 Refill(s) loperamide 2022-09 Yes 2 mg = 1 Mem oria 2 mg oral 0-14 cap, PO, l capsule 18:57: QID-Before Herm ranjit 00 Meals, PRN if colostomy out put has high output liquire more than 1l, X 10 day, # 30 cap, 0 Refill(s) pantoprazol 2022-09 Yes 40 mg = 1 M emoria e 40 mg 0-14 tab, PO, l oral 18:57: BID-Before Tay enteric 00 Meals, # coated 60 tab, 0 tablet Refill(s) gabapentin 2022-09 Yes 100 mg = 1 M emoria 100 mg oral 0-14 cap, PO, l capsule 18:57: Q12H, # 60 Herm ranjit 00 cap, 0 Refill(s) loperamide 2022-09 Yes 2 mg = 1 Mem oria 2 mg oral 0-14 cap, PO, l capsule 18:57: QID-Before Herm ranjit 00 Meals, PRN if colostomy out put has high output liquire more than 1l, X 10 day, # 30 cap, 0 Refill(s) pantoprazol 2022-09 Yes 40 mg = 1 M emoria e 40 mg 0-14 tab, PO, l oral 18:57: BID-Before enteric Meals, # coated 60 tab, 0 tablet Refill(s) gabapentin 2022-09 Yes 100 mg = 1 M emoria 100 mg oral 0-14 cap, PO, l capsule 18:57: Q12H, # 60 Herm ranjit 00 cap, 0 Refill(s) loperamide 2022-09 Yes 2 mg = 1 Mem oria 2 mg oral 0-14 cap, PO, l capsule 18:57: QID-Before Meals, PRN if colostomy out put has high output liquire more than 1l, X 10 day, # 30 cap, 0 Refill(s) pantoprazol 2022-09 Yes 40 mg = 1 M emoria e 40 mg 0-14 tab, PO, l oral 18:57: BID-Before Meals, # coated 60 tab, 0 tablet Refill(s) Lomotil 2022-09 Yes 1 tab, PO, Sidney jorge oral tablet 0-14 QID, hold l 18:56: if colostomy out put less than 1000 per day, X 10 day, # 40 tab, 0 Refill(s) Lomotil 2022-09 Yes 1 tab, PO, Sidney jorge oral tablet 0-14 QID, hold l 18:56: if colostomy out put less than 1000 per day, X 10 day, # 40 tab, 0 Refill(s) Lomotil 2022-09 Yes 1 tab, PO, Sidney jorge oral tablet 0-14 QID, hold l 18:56: if colostomy out put less than 1000 per day, X 10 day, # 40 tab, 0 Refill(s) cholestyram 2022-09 Yes 4 gm, PO, M emoria ine 4 g/9 g 0-14 TID, # 378 l oral powder 18:55: gm, 0 Padmaja Refill(s) Colace 100 2022-09 Yes 100 mg = 1 M emoria mg oral 0-14 cap, PO, l capsule 18:55: Daily, PRN as needed for constipati on, 0 Refill(s) Flonase 2022-09 Yes 100 Memoria 0.05 mg/inh 0-14 microgram l nasal spray 18:55: = 2 spray, [place] 00 Each Affected Nostril, Daily, PRN Allergies, 0 Refill(s) cholestyram 2022-09 Yes 4 gm, PO, M emoria ine 4 g/9 g 0-14 TID, # 378 l oral powder 18:55: gm, 0 Padmaja nn 00 Refill(s) Colace 100 2022-09 Yes 100 mg = 1 M emoria mg oral 0-14 cap, PO, l capsule 18:55: Daily, PRN Herm ranjit 00 as needed for constipati on, 0 Refill(s) Flonase 2022-09 Yes 100 Memoria 0.05 mg/inh 0-14 microgram l nasal spray 18:55: = 2 spray, [place] 00 Each Affected Nostril, Daily, PRN Allergies, 0 Refill(s) cholestyram 2022-09 Yes 4 gm, PO, M emoria ine 4 g/9 g 0-14 TID, # 378 l oral powder 18:55: gm, 0 Padmaja nn 00 Refill(s) Colace 100 2022-09 Yes 100 mg = 1 M emoria mg oral 0-14 cap, PO, l capsule 18:55: Daily, PRN Herm ranjit 00 as needed for constipati on, 0 Refill(s) Flonase 2022-09 Yes 100 Memoria 0.05 mg/inh 0-14 microgram l nasal spray 18:55: = 2 spray, [place] 00 Each Affected Nostril, Daily, PRN Allergies, 0 Refill(s) Zofran 4 mg 0 Yes 4 mg = 1 Me moria oral tablet 9-22 tab, PO, l 18:18: Q6H, PRN [place] 00 Nausea & Vomiting Zofran 4 mg 2022-0 Yes 4 mg = 1 Me moria oral tablet 9-22 tab, PO, l 18:18: Q6H, PRN [place] 00 Nausea & Vomiting Zofran 4 mg 2022-0 Yes 4 mg = 1 Me moria oral tablet 9-22 tab, PO, l 18:18: Q6H, PRN [place] 00 Nausea & Vomiting topiramate Yes 25 mg = 1 Me moria 25 mg oral 9-22 tab, PO, l tablet 18:16: Q12H topiramate Yes 25 mg = 1 Me moria 25 mg oral 9-22 tab, PO, l tablet 18:16: Q1 topiramate Yes 25 mg = 1 Me moria 25 mg oral 9-22 tab, PO, l tablet 18:16: Q12H rosuvastati Yes 10 mg = 1 M emoria n 10 mg 9-22 tab, PO, l oral tablet 18:14: Bedtime Her [facility] 00 Senna 8.6 Yes 17.2 mg = Mem oria mg oral 9-22 2 tab, PO, l tablet 18:14: Daily, PRN Padmaja nn 00 as needed for constipati on simethicone Yes 125 mg = 1 Memoria 125 mg oral 9-22 cap, PO, l capsule 18:14: Q12H rosuvastati Yes 10 mg = 1 M emoria n 10 mg 9-22 tab, PO, l oral tablet 18:14: Bedtime Her [facility] 00 Senna 8.6 Yes 17.2 mg = Mem oria mg oral 9-22 2 tab, PO, l tablet 18:14: Daily, PRN Padmaja nn 00 as needed for constipati on simethicone Yes 125 mg = 1 Memoria 125 mg oral 9-22 cap, PO, l capsule 18:14: Q12H [place] 00 rosuvastati Yes 10 mg = 1 M emoria n 10 mg 9-22 tab, PO, l oral tablet 18:14: Bedtime Her [facility] 00 Senna 8.6 Yes 17.2 mg = Mem oria mg oral 9-22 2 tab, PO, l tablet 18:14: Daily, PRN Padmaja nn 00 as needed for constipati on simethicone Yes 125 mg = 1 Memoria 125 mg oral 9-22 cap, PO, l capsule 18:14: Q12H [place] 00 Risperdal 1 Yes 1 mg = 1 Me moria mg oral 9-22 tab, PO, l tablet 18:13: Q12H Risperdal 1 Yes 1 mg = 1 Me moria mg oral 9-22 tab, PO, l tablet 18:13: Q12H Risperdal 1 Yes 1 mg = 1 Me moria mg oral 9-22 tab, PO, l tablet 18:13: Q12H nystatin 0 Yes 1 appl, Memori a topical 9-22 TOP, TID, l 100,000 18:12: to breast Padmaja nn units/g 00 and groin powder nystatin 0 Yes 1 appl, Memori a topical 9-22 TOP, TID, l 100,000 18:12: to breast Padmaja nn units/g 00 and groin powder nystatin 0 Yes 1 appl, Memori a topical 9-22 TOP, TID, l 100,000 18:12: to breast Padmaja nn units/g 00 and groin powder midodrine 0 Yes 10 mg = 1 Mem oria 10 mg oral 9-22 tab, PO, l tablet 18:11: Q8H midodrine 0 Yes 10 mg = 1 Mem oria 10 mg oral 9-22 tab, PO, l tablet 18:11: Q8H midodrine 0 Yes 10 mg = 1 Mem oria 10 mg oral 9-22 tab, PO, l tablet 18:11: Q8H [place] 5/325 0 Yes 1 tab, PO, Memoria oral tablet 06-17 Q6H, PRN l 18:09: Pain Score [place] 4-6, 0 Refill(s) levothyroxi Yes 50 Memori a ne 50 mcg 9-22 microgram l (0.05 mg) 18:09: = 1 tab, Herm ranjit oral tablet 00 PO, Daily [place] 5/325 0 Yes 1 tab, PO, Memoria oral tablet -22 Q6H, PRN l 18:09: Pain Score [place] 4-6, 0 Refill(s) levothyroxi Yes 50 Memori a ne 50 mcg 9-22 microgram l (0.05 mg) 18:09: = 1 tab, Herm ranjit oral tablet 00 PO, Daily [place] 5/325 2022-0 Yes 1 tab, PO, Memoria oral tablet -22 Q6H, PRN l 18:09: Pain Score 4-6, 0 Refill(s) levothyroxi 0 Yes 50 Memori a ne 50 mcg 9-22 microgram l (0.05 mg) 18:09: = 1 tab, Herm ranjit oral tablet 00 PO, Daily fludrocorti 0 Yes 0.2 mg = 2 Memoria sone 0.1 mg 9-22 tab, PO, l oral tablet 18:08: Daily folic acid 0 Yes 1 mg = 1 Mem oria 1 mg oral 9-22 tab, PO, l tablet 18:08: Daily fludrocorti 0 Yes 0.2 mg = 2 Memoria sone 0.1 mg 9-22 tab, PO, l oral tablet 18:08: Daily folic acid 0 Yes 1 mg = 1 Mem oria 1 mg oral 9-22 tab, PO, l tablet 18:08: Daily fludrocorti 0 Yes 0.2 mg = 2 Memoria sone 0.1 mg 9-22 tab, PO, l oral tablet 18:08: Daily folic acid 2022-0 Yes 1 mg = 1 Mem oria 1 mg oral 9-22 tab, PO, l tablet 18:08: Daily citalopram 0 Yes 40 mg = 1 Me moria 40 mg oral 9-22 tab, PO, l tablet 18:06: Daily Vitamin 2022-0 Yes 1,000 Memoria B-12 1000 9-22 microgram l mcg/mL 18:06: = 1 mL, [place] injectable 00 IM, Q14D solution citalopram 2022-0 Yes 40 mg = 1 Me moria 40 mg oral 9-22 tab, PO, l tablet 18:06: Daily Vitamin 2022-0 Yes 1,000 Memoria B-12 1000 9-22 microgram l mcg/mL 18:06: = 1 mL, Tay injectable 00 IM, Q14D solution citalopram 2022-0 Yes 40 mg = 1 Me moria 40 mg oral 9-22 tab, PO, l tablet 18:06: Daily [place] 00 Vitamin Yes 1,000 Memoria B-12 1000 9-22 microgram l mcg/mL 18:06: = 1 mL, [place] injectable 00 IM, Q14D solution Albuterol Yes = 1 puff, Mem oria (Eqv-Proven 9-22 INHALATION l til HFA) 90 18:05: , Q6H, PRN Tay mcg/inh 00 Shortness inhalation of breath aerosol busPIRone Yes 30 mg = 1 Mem oria 30 mg oral 9-22 tab, PO, l tablet 18:05: Q12H [place] 00 calamine Yes 1 appl, Memori a topical 9-22 TOP, Q8H, l lotion 18:05: PRN as [place] 00 needed for itching Albuterol Yes = 1 puff, Mem oria (Eqv-Proven 9-22 INHALATION l til HFA) 90 18:05: , Q6H, PRN Tay mcg/inh 00 Shortness inhalation of breath aerosol busPIRone Yes 30 mg = 1 Mem oria 30 mg oral 9-22 tab, PO, l tablet 18:05: Q12H [place] 00 calamine Yes 1 appl, Memori a topical 9-22 TOP, Q8H, l lotion 18:05: PRN as [place] 00 needed for itching Albuterol Yes = 1 puff, Mem oria (Eqv-Proven 9-22 INHALATION l til HFA) 90 18:05: , Q6H, PRN [place] mcg/inh 00 Shortness inhalation of breath aerosol busPIRone Yes 30 mg = 1 Mem oria 30 mg oral 9-22 tab, PO, l tablet 18:05: Q12H [place] 00 calamine Yes 1 appl, Memori a topical 9-22 TOP, Q8H, l lotion 18:05: PRN as [place] 00 needed for itching zinc oxide Yes 1 appl, Sidney jorge 40% topical 9-20 TOP, Q12H l paste 18:17: [place] 00 zinc oxide Yes 1 appl, Sidney jorge 40% topical 9-20 TOP, Q12H l paste 18:17: [place] 00 zinc oxide Yes 1 appl, Sidney jorge 40% topical 9-20 TOP, Q12H l paste 18:17: Tay 00 erythromyci Yes 1 appl, Mem oria n 9-19 BOTH EYES, l ophthalmic 18:07: Q6H [place] 0.5% 00 ointment erythromyci Yes 1 appl, Mem oria n 9-19 BOTH EYES, l ophthalmic 18:07: Q6H [place] 0.5% 00 ointment erythromyci Yes 1 appl, Mem oria n 9-19 BOTH EYES, l ophthalmic 18:07: Q6H [place] 0.5% 00 ointment tramadol 50 Yes 100 mg = 2 Memoria mg oral 8-08 tab, PO, l tablet 02:21: TID, PRN [place] 00 Pain, # 40 tab, 0 Refill(s) tramadol 50 0 Yes 100 mg = 2 Memoria mg oral 8-08 tab, PO, l tablet 02:21: TID, PRN Tay 00 Pain, # 40 tab, 0 Refill(s) tramadol 50 0 Yes 100 mg = 2 Memoria mg oral 8-08 tab, PO, l tablet 02:21: TID, PRN [place] 00 Pain, # 40 tab, 0 Refill(s) ALPRAZOLam Yes 0.5 mg = 1 M emoria 0.5 mg oral 8-08 tab, PO, l tablet 02:20: Q6H, PRN [place] 00 Anxiety, # 30 tab, 0 Refill(s) ALPRAZOLam 0 Yes 0.5 mg = 1 M emoria 0.5 mg oral 8-08 tab, PO, l tablet 02:20: Q6H, PRN [place] 00 Anxiety, # 30 tab, 0 Refill(s) ALPRAZOLam 0 Yes 0.5 mg = 1 M emoria 0.5 mg oral 8-08 tab, PO, l tablet 02:20: Q6H, PRN [place] 00 Anxiety, # 30 tab, 0 Refill(s) ondansetron 2023-0 Yes 4 mg = 1 Me moria 4 mg oral 8-08 tab, PO, l tablet, 02:18: TID, PRN Cecil n disintegrat 00 Nausea / ing Vomiting, Dissolve tab under tongue, # 10 tab, 0 Refill(s) ondansetron 2023-0 Yes 4 mg = 1 Me moria 4 mg oral 8-08 tab, PO, l tablet, 02:18: TID, PRN Cecil n disintegrat 00 Nausea / ing Vomiting, Dissolve tab under tongue, # 10 tab, 0 Refill(s) ondansetron 2023-0 Yes 4 mg = 1 Me moria 4 mg oral 8-08 tab, PO, l tablet, 02:18: TID, PRN Cecil n disintegrat 00 Nausea / ing Vomiting, Dissolve tab under tongue, # 10 tab, 0 Refill(s) topiramate 2023-0 Yes 25 mg = 1 Me moria 25 mg oral 8-08 cap, PO, l capsule 02:17: Q12H, # [place] 00 180 cap, 0 Refill(s) topiramate 2023-0 Yes 25 mg = 1 Me moria 25 mg oral 8-08 cap, PO, l capsule 02:17: Q12H, # Tay 00 180 cap, 0 Refill(s) topiramate 2023-0 Yes 25 mg = 1 Me moria 25 mg oral 8-08 cap, PO, l capsule 02:17: Q12H, # [place] 00 180 cap, 0 Refill(s) SUMAtriptan 2023-0 Yes 50 mg = 1 M emoria 50 mg oral 8-08 tab, PO, l tablet 02:16: PRN, PRN [place] 00 Headache, as needed every 2 hours, # 9 tab, 0 Refill(s) SUMAtriptan 2023-0 Yes 50 mg = 1 M emoria 50 mg oral 8-08 tab, PO, l tablet 02:16: PRN, PRN Tay 00 Headache, as needed every 2 hours, # 9 tab, 0 Refill(s) SUMAtriptan 2023-0 Yes 50 mg = 1 M emoria 50 mg oral 8-08 tab, PO, l tablet 02:16: PRN, PRN [place] 00 Headache, as needed every 2 hours, # 9 tab, 0 Refill(s) polyethylen 3-0 Yes 17 gm, PO, Memoria e glycol 8-08 Q12H, 0 l 3350 oral 02:15: Refill(s) Her posadas powder for 00 reconstitut ion rosuvastati 2022-0 Yes 10 mg = 1 M emoria n 10 mg 8-08 tab, PO, l oral tablet 02:15: Bedtime, # [place] 00 30 tab, 0 Refill(s) polyethylen 2022-0 Yes 17 gm, PO, Memoria e glycol 8-08 Q12H, 0 l 3350 oral 02:15: Refill(s) Her posadas powder for 00 reconstitut ion rosuvastati 0 Yes 10 mg = 1 M emoria n 10 mg 8-08 tab, PO, l oral tablet 02:15: Bedtime, # Tay 00 30 tab, 0 Refill(s) polyethylen 2022-0 Yes 17 gm, PO, Memoria e glycol 8-08 Q12H, 0 l 3350 oral 02:15: Refill(s) Her posadas powder for 00 reconstitut ion rosuvastati 2022-0 Yes 10 mg = 1 M emoria n 10 mg 8-08 tab, PO, l oral tablet 02:15: Bedtime, # [place] 00 30 tab, 0 Refill(s) levothyroxi 2022-0 Yes PO, Daily, Memoria ne 8-08 0 l 02:13: Refill(s) Tay Myrbetriq 2022-0 Yes 50 mg = 1 Mem oria 50 mg oral 8-08 tab, PO, l tablet, 02:13: Daily, # Cecil n extended 00 30 tab, 0 release Refill(s) nystatin 2022-0 Yes 100,000 Memori a 8-08 unit, TOP, l 02:13: Q12H, 0 [place] 00 Refill(s) levothyroxi 2022-0 Yes PO, Daily, Memoria ne 8-08 0 l 02:13: Refill(s) Tay Myrbetriq 2022-0 Yes 50 mg = 1 Mem oria 50 mg oral 8-08 tab, PO, l tablet, 02:13: Daily, # Cecil n extended 00 30 tab, 0 release Refill(s) nystatin 2022-0 Yes 100,000 Memori a 8-08 unit, TOP, l 02:13: Q12H, 0 Refill(s) levothyroxi 2022-0 Yes PO, Daily, Memoria ne 8-08 0 l 02:13: Refill(s) Myrbetriq 2022-0 Yes 50 mg = 1 Mem oria 50 mg oral 8-08 tab, PO, l tablet, 02:13: Daily, # Cecil n extended 00 30 tab, 0 release Refill(s) nystatin 2022-0 Yes 100,000 Memori a 8-08 unit, TOP, l 02:13: Q12H, 0 Refill(s) folic acid 2022-0 Yes 1 mg, PO, Me moria 8-08 Daily, 0 l 02:12: Refill(s) folic acid 2022-0 Yes 1 mg, PO, Me moria 8-08 Daily, 0 l 02:12: Refill(s) folic acid 2022-0 Yes 1 mg, PO, Me moria 8-08 Daily, 0 l 02:12: Refill(s) fludrocorti 2022-0 Yes 0.2 mg = 2 Memoria sone 0.1 mg 8-08 tab, PO, l oral tablet 02:11: Daily, # [place] r[place] 00 30 tab, 0 Refill(s) fluticasone 3-0 Yes 50 Memori a propionate 8-08 microgram, l 02:11: INHALATION [place] , Daily, 0 Refill(s) fludrocorti 3-0 Yes 0.2 mg = 2 Memoria sone 0.1 mg 8-08 tab, PO, l oral tablet 02:11: Daily, # He rmann 00 30 tab, 0 Refill(s) fluticasone 3-0 Yes 50 Memori a propionate 8-08 microgram, l 02:11: INHALATION [place] 00 , Daily, 0 Refill(s) fludrocorti 3-0 Yes 0.2 mg = 2 Memoria sone 0.1 mg 8-08 tab, PO, l oral tablet 02:11: Daily, # [place] r[place] 00 30 tab, 0 Refill(s) fluticasone 2023-0 Yes 50 Memori a propionate 8-08 microgram, l 02:11: INHALATION [place] 00 , Daily, 0 Refill(s) docusate 2023-0 Yes 100 mg = 1 Mem oria sodium 100 8-08 cap, PO, l mg oral 02:10: Daily, PRN Herm ranjit capsule 00 Constipati on, # 20 cap, 0 Refill(s) famotidine 2023-0 Yes 20 mg = 1 Me moria 8-08 tab, PO, l 02:10: Daily, # [place] 00 60 tab, 0 Refill(s) docusate 2023-0 Yes 100 mg = 1 Mem oria sodium 100 8-08 cap, PO, l mg oral 02:10: Daily, PRN Herm ranjit capsule 00 Constipati on, # 20 cap, 0 Refill(s) famotidine 2023-0 Yes 20 mg = 1 Me moria 8-08 tab, PO, l 02:10: Daily, # Tay 00 60 tab, 0 Refill(s) docusate 2023-0 Yes 100 mg = 1 Mem oria sodium 100 8-08 cap, PO, l mg oral 02:10: Daily, PRN Herm ranjit capsule 00 Constipati on, # 20 cap, 0 Refill(s) famotidine 2023-0 Yes 20 mg = 1 Me moria 8-08 tab, PO, l 02:10: Daily, # [place] 00 60 tab, 0 Refill(s) dicyclomine 2023-0 Yes 20 mg = 1 M emoria 20 mg oral 8-08 tab, PO, l tablet 02:08: PRN Q^H, 0 Padmaja nn 00 Refill(s) dicyclomine 2023-0 Yes 20 mg = 1 M emoria 20 mg oral 8-08 tab, PO, l tablet 02:08: PRN Q^H, 0 Padmaja nn 00 Refill(s) dicyclomine 2023-0 Yes 20 mg = 1 M emoria 20 mg oral 8-08 tab, PO, l tablet 02:08: PRN Q^H, 0 Padmaja nn 00 Refill(s) dicyclomine 2023-0 Yes 20 mg = 1 M emoria 20 mg oral 8-08 tab, PO, l tablet 02:06: PRN, # 28 Cecil n 00 tab, 0 Refill(s) dicyclomine 2023-0 Yes 20 mg = 1 M emoria 20 mg oral 8-08 tab, PO, l tablet 02:06: PRN, # 28 Cecil n 00 tab, 0 Refill(s) dicyclomine 2023-0 Yes 20 mg = 1 M emoria 20 mg oral 8-08 tab, PO, l tablet 02:06: PRN, # 28 Cecil n 00 tab, 0 Refill(s) cyanocobala 2023-0 Yes 1,000 Memor ia min 8-08 microgram, l 02:04: IM, every 2 weeks, 0 Refill(s) cyanocobala 3-0 Yes 1,000 Memor ia min 8-08 microgram, l 02:04: IM, every 2 weeks, 0 Refill(s) cyanocobala 3-0 Yes 1,000 Memor ia min 8-08 microgram, l 02:04: IM, every 2 weeks, 0 Refill(s) citalopram 2023-0 Yes 40 mg = 1 Me moria 40 mg oral 8-08 tab, PO, l tablet 02:03: Daily, # Tay 00 30 tab, 0 Refill(s) citalopram 3-0 Yes 40 mg = 1 Me moria 40 mg oral 8-08 tab, PO, l tablet 02:03: Daily, # [place] 00 30 tab, 0 Refill(s) citalopram 3-0 Yes 40 mg = 1 Me moria 40 mg oral 8-08 tab, PO, l tablet 02:03: Daily, # [place] 00 30 tab, 0 Refill(s) calamine 3-0 Yes TOP, Q8H, Sidney jorge topical 8-08 0 l lotion 02:02: Refill(s) Cecil n 00 calamine 2023-0 Yes TOP, Q8H, Sidney jorge topical 8-08 0 l lotion 02:02: Refill(s) Cecil n 00 calamine 3-0 Yes TOP, Q8H, Sidney jorge topical 8-08 0 l lotion 02:02: Refill(s) Cecil n 00 Ventolin 2022-0 Yes 1 puff, Memori a HFA 90 8-08 INHALER, l mcg/inh 02:01: Q6H, PRN Cecil n inhalation 00 As needed aerosol for with shortness adapter of breath, # 1 ea, 3 Refill(s) Ventolin 2022-0 Yes 1 puff, Memori a HFA 90 8-08 INHALER, l mcg/inh 02:01: Q6H, PRN [place] n inhalation 00 As needed aerosol for with shortness adapter of breath, # 1 ea, 3 Refill(s) Ventolin 2022-0 Yes 1 puff, Memori a HFA 90 8-08 INHALER, l mcg/inh 02:01: Q6H, PRN Cecil n inhalation 00 As needed aerosol for with shortness adapter of breath, # 1 ea, 3 Refill(s) magnesium 2022-0 2022- No 2g 2 g, IV Univ ers sulfate in 02-22 05-30 Piggyback, it y of water 2 15:00: 16:01 Administer Emanuel as gram/50 mL 00 :00 over 60 Medica l (4 %) Minutes, Branch infusion 2 ONCE, 1 g dose, On Tue02/22/23 at 1000, Routine vitamin C 0 Yes 1000mg Take 1,000 [facility] with derrell 5-30 mg by ity of hips 1,000 12:56: mouth [place] mg tablet 43 daily. Medical Branch Lidocaine 4 Yes 1{patch Apply 1 [facility] % PtMd 5-30 } Patch to ity of 12:56: area(s) in [place] [address] the Medical morning. Branch melatonin 3 0 Yes 3mg Take 1 Univ ers mg tablet 5-30 tablet by ity o f 12:56: mouth at [place] [address] bedtime. Medical Branch methocarbam 0 Yes 750mg [...] 5-30 mouth ity of tablet 12:56: daily. [place] [address] Medical Branch atovaquone 2022-0 Yes 750mg Take 5 mL U nivers 750 mg/5 mL 5-30 by mouth ity of suspension 12:56: in the [place] [address] morning. Medical Branch ciprofloxac 2022-0 Yes 500mg [...] tablet by ity of 12:56: mouth in [place] 43 the Medical morning. Branch gabapentin 2022-0 Yes 300mg Take 1 Univ ers 300 mg 5-30 capsule by ity of capsule 12:56: mouth at [place] [address] bedtime. Medical Branch pantoprazol 2022-0 Yes 40mg Take 1 Univ ers e 40 mg EC 5-30 tablet by ity of tablet 12:56: mouth in [place] 43 the Medical morning Branch and 1 tablet in the evening. calcium 2022-0 Yes 1{tbl} Take 1 Univer s polycarboph 5-30 tablet by ity of [place] 12:56: mouth 4 [place] (FIBERCON 43 (four) Medical ORAL) times Branch daily. PREDNISONE 2022-0 Yes 15mg Take 15 mg U nivers ORAL 5-30 by mouth ity of 12:56: in the [place] 43 morning. Medical For 3 days Branch starting 02/15/2023 tamsulosin 2022-0 Yes .4mg Take 1 Unive rs 0.4 mg 24 5-30 capsule by ity of hr capsule 12:56: mouth in [facility] as 43 the Medical morning. Branch ipratropium [...] Patch to ity of 12:56: area(s) in [place] 43 the Medical morning. Branch melatonin 3 0 Yes 3mg Take 1 Univ ers mg tablet 5-30 tablet by ity o f 12:56: mouth at [place] 43 bedtime. Medical Branch methocarbam 2022-0 Yes 750mg Take 1 Uni vers oL [...] 5-30 mouth ity of tablet 12:56: daily. [place] [address] Medical Branch atovaquone 2022-0 Yes 750mg Take 5 mL U nivers 750 mg/5 mL 5-30 by mouth ity of suspension 12:56: in the [place] [address] morning. Medical Branch ciprofloxac 2022-0 Yes 500mg Take 1 Uni vers in HCl 5-30 tablet by ity of (CIPRO) 500 12:56: mouth in [place] mg tablet 43 the Medical morning. Branch dicyclomine 0 Yes 10mg Take 1 Univ ers 10 [...] tablet by ity of 12:56: mouth in [place] 43 the Medical morning. Branch gabapentin 2022-0 Yes 300mg Take 1 Univ ers 300 mg 5-30 capsule by ity of capsule 12:56: mouth at [place] [address] bedtime. Medical Branch pantoprazol 2022-0 Yes 40mg Take 1 Univ ers e 40 mg EC 5-30 tablet by ity of tablet 12:56: mouth in [place] 43 the Medical morning Branch and 1 tablet in the evening. calcium 2022-0 Yes 1{tbl} Take 1 Univer s polycarboph 5-30 tablet by ity of [place] 12:56: mouth 4 [place] (FIBERCON 43 (four) Medical ORAL) times Branch daily. PREDNISONE 2022-0 Yes 15mg Take 15 mg U nivers ORAL 5-30 by mouth ity of 12:56: in the [place] [address] morning. Medical For 3 days Branch starting 02/15/2023 tamsulosin 2022-0 Yes .4mg Take 1 Unive rs 0.4 mg 24 5-30 capsule by ity of hr capsule 12:56: mouth in [facility] as 43 the Medical morning. Branch ipratropium 0 Yes .5mg Inhale 2.5 Univers 0.02 % 5-30 mL every 6 ity of nebulizer 12:56: (six) [place] solution 43 hours as Medical needed for [...] Patch to ity of 12:56: area(s) in [place] [address] the Medical morning. Branch melatonin 3 0 Yes 3mg Take 1 Univ ers mg tablet 5-30 tablet by ity o f 12:56: mouth at [place] 43 bedtime. Medical Branch methocarbam 2022-0 Yes 750mg Take 1 Uni vers oL [...] 5-30 mouth ity of tablet 12:56: daily. [place] [address] Medical Branch atovaquone 2022-0 Yes 750mg Take 5 mL U nivers 750 mg/5 mL 5-30 by mouth ity of suspension 12:56: in the [place] [address] morning. Medical Branch ciprofloxac 2022-0 Yes 500mg [...] tablet by ity of 12:56: mouth in [place] 43 the Medical morning. Branch gabapentin 2022-0 Yes 300mg Take 1 Univ ers 300 mg 5-30 capsule by ity of capsule 12:56: mouth at [place] [address] bedtime. Medical Branch pantoprazol 2022-0 Yes 40mg Take 1 Univ ers e 40 mg EC 5-30 tablet by ity of tablet 12:56: mouth in [place] 43 the Medical morning Branch and 1 tablet in the evening. calcium 2022-0 Yes 1{tbl} Take 1 [facility] s polycarboph 5-30 tablet by [place] 12:56: mouth 4 [place] ([employer] 43 (four) Medical ORAL) times Branch daily. PREDNISONE 2022-0 Yes 15mg Take 15 mg U nivers ORAL 5-30 by mouth ity of 12:56: in the [place] [address] morning. Medical For 3 days Branch starting 02/15/2023 tamsulosin 2022-0 Yes .4mg Take 1 Unive rs 0.4 mg 24 5-30 capsule by ity of hr capsule 12:56: mouth in [facility] as 43 the Medical morning. Branch ipratropium 0 Yes .5mg Inhale 2.5 [facility] 0.02 % 5-30 mL every 6 ity of nebulizer 12:56: (six) [place] solution 43 hours as Medical needed for [...] Patch to ity of 12:56: area(s) in [place] 43 the Medical morning. Branch melatonin 3 0 Yes 3mg Take 1 Univ ers mg tablet 5-30 tablet by ity o f 12:56: mouth at [place] 43 bedtime. Medical Branch methocarbam 2022-0 Yes 750mg Take 1 Uni vers oL [...] 5-30 mouth ity of tablet 12:56: daily. [place] [address] Medical Branch atovaquone 2022-0 Yes 750mg Take 5 mL U nivers 750 mg/5 mL 5-30 by mouth ity of suspension 12:56: in the [place] [address] morning. Medical Branch ciprofloxac 2022-0 Yes 500mg [...] tablet by ity of 12:56: mouth in [place] 43 the Medical morning. Branch gabapentin 2022-0 Yes 300mg Take 1 Univ ers 300 mg 5-30 capsule by ity of capsule 12:56: mouth at [place] [address] bedtime. Medical Branch pantoprazol 2022-0 Yes 40mg Take 1 Univ ers e 40 mg EC 5-30 tablet by ity of tablet 12:56: mouth in [place] 43 the Medical morning Branch and 1 tablet in the evening. calcium 2022-0 Yes 1{tbl} Take 1 [facility] s polycarboph 5-30 tablet by [place] 12:56: mouth 4 [place] ([employer] 43 (four) Medical ORAL) times Branch daily. PREDNISONE 2022-0 Yes 15mg Take 15 mg U nivers ORAL 5-30 by mouth ity of 12:56: in the [place] 43 morning. Medical For 3 days Branch starting 02/15/2023 tamsulosin 2022-0 Yes .4mg Take 1 Unive rs 0.4 mg 24 5-30 capsule by ity of hr capsule 12:56: mouth in [facility] 43 the Medical morning. Branch ipratropium 0 [...] Patch to ity of 12:56: area(s) in [place] 43 the Medical morning. Branch melatonin 3 0 Yes 3mg Take 1 Univ ers mg tablet 5-30 tablet by ity o f 12:56: mouth at [place] 43 bedtime. Medical Branch methocarbam 2022-0 Yes 750mg Take 1 Uni vers oL [...] 5-30 mouth ity of tablet 12:56: daily. [place] [address] Medical Branch atovaquone 2022-0 Yes 750mg Take 5 mL U nivers 750 mg/5 mL 5-30 by mouth ity of suspension 12:56: in the [place] [address] morning. Medical Branch ciprofloxac 2022-0 Yes 500mg [...] tablet by ity of 12:56: mouth in [place] 43 the Medical morning. Branch gabapentin 2022-0 Yes 300mg Take 1 Univ ers 300 mg 5-30 capsule by ity of capsule 12:56: mouth at [place] 43 bedtime. Medical Branch pantoprazol 0 Yes 40mg Take 1 Univ ers e 40 mg EC 5-30 tablet by ity of tablet 12:56: mouth in [place] 43 the Medical morning Branch and 1 tablet in the evening. calcium 2022-0 Yes 1{tbl} Take 1 Univer s polycarboph 5-30 tablet by ity of [place] 12:56: mouth 4 [place] (FIBERCON 43 (four) Medical ORAL) times Branch daily. PREDNISONE 2022-0 Yes 15mg Take 15 mg U nivers ORAL 5-30 by mouth ity of 12:56: in the [place] 43 morning. Medical For 3 days Branch starting 02/15/2023 tamsulosin 2022-0 Yes .4mg Take 1 Unive rs 0.4 mg 24 5-30 capsule by ity of hr capsule 12:56: mouth in [facility] 43 the Medical morning. Branch ipratropium [...] Patch to ity of 12:56: area(s) in [place] 43 the Medical morning. Branch melatonin 3 0 Yes 3mg Take 1 Univ ers mg tablet 5-30 tablet by ity o f 12:56: mouth at [place] 43 bedtime. Medical Branch methocarbam 2022-0 Yes 750mg Take 1 Uni vers oL [...] tablet (six) Branch hours as needed. acetaminoph 3-0 Yes 650mg Take 2 Uni vers en 325 mg 5-30 tablets by ity of tablet 12:56: mouth [place] 43 every 6 Medical (six) Branch hours as needed. albuterol 3-0 Yes 2{puff} Inhale 2 U nivers (VENTOLIN 5-30 Puffs ity of HFA) 90 12:56: every 4 [place] mcg/actuati 43 (four) Medica l on inhaler hours as Branc h needed for Wheezing or Shortness of Breath. aspirin 81 2022-0 Yes Take by Univ ers mg EC 5-30 mouth ity of tablet 12:56: daily. [place] [address] Medical Branch atovaquone 2022-0 Yes 750mg Take 5 mL U nivers 750 mg/5 mL 5-30 by mouth ity of suspension 12:56: in the [place] [address] morning. Medical Branch ciprofloxac 2022-0 Yes 500mg [...] tablet by ity of 12:56: mouth in [place] 43 the Medical morning. Branch gabapentin 3-0 Yes 300mg Take 1 Univ ers 300 mg 5-30 capsule by ity of capsule 12:56: mouth at [place] 43 bedtime. Medical Branch pantoprazol 2022-0 Yes 40mg Take 1 Univ ers e 40 mg EC 5-30 tablet by ity of tablet 12:56: mouth in [place] 43 the Medical morning Branch and 1 tablet [...] tablet 43 daily. Medical Branch vitamin C 2022-0 Yes 1000mg Take 1,000 Univers with derrell 5-30 mg by ity of hips 1,000 12:56: mouth [place] mg tablet 43 daily. Medical Branch vitamin C 2022-0 Yes 1000mg Take 1,000 Univers with derrell 5-30 mg by ity of hips 1,000 12:56: mouth [place] mg tablet 43 daily. Medical Branch vitamin C 2022-0 Yes 1000mg Take 1,000 Univers with derrell 5-30 mg by ity of hips 1,000 12:56: mouth [place] mg tablet 43 daily. Medical Branch vitamin C 2022-0 Yes 1000mg Take 1,000 Univers with derrell 5-30 mg by ity of hips 1,000 12:56: mouth [place] mg tablet 43 daily. Medical Branch vitamin C 2022-0 Yes 1000mg Take 1,000 Univers with derrell 5-30 mg by ity of hips 1,000 12:56: mouth [place] mg tablet 43 daily. [facility] Branch vitamin C Yes 1000mg Take 1,000 Univers with derrell 5-30 mg by ity of hips 1,000 12:56: mouth [place] mg tablet 43 daily. [facility] Branch vitamin C Yes 1000mg Take 1,000 Univers with derrell 5-30 mg by ity of hips 1,000 12:56: mouth [place] mg tablet 43 daily. [facility] Branch vitamin C Yes 1000mg Take 1,000 Univers with derrell 5-30 mg by ity of hips 1,000 12:56: mouth [place] mg tablet 43 daily. [facility] Branch vitamin C Yes 1000mg Take 1,000 Univers with derrell 5-30 mg by ity of hips 1,000 12:56: mouth [place] mg tablet 43 daily. [facility] Branch vitamin C Yes 1000mg Take 1,000 Univers with derrell 5-30 mg by ity of hips 1,000 12:56: mouth [place] mg tablet 43 daily. [facility] Branch vitamin C Yes 1000mg Take 1,000 Univers with derrell 5-30 mg by ity of hips 1,000 12:56: mouth [place] mg tablet 43 daily. [facility] Branch vitamin C Yes 1000mg Take 1,000 Univers with derrell 5-30 mg by ity of hips 1,000 12:56: mouth [place] mg tablet 43 daily. [facility] Branch vitamin C Yes 1000mg Take 1,000 Univers with derrell 5-30 mg by ity of hips 1,000 12:56: mouth [place] mg tablet 43 daily. [facility] Branch vitamin C Yes 1000mg Take 1,000 Univers with derrell 5-30 mg by ity of hips 1,000 12:56: mouth [place] mg tablet 43 daily. [facility] Branch vitamin C 0 Yes 1000mg Take 1,000 Univers with derrell 5-30 mg by ity of hips 1,000 12:56: mouth [place] mg tablet 43 daily. [facility] vitamin C 0 Yes 1000mg Take 1,000 Univers with derrell 5-30 mg by ity of hips 1,000 12:56: mouth [place] mg tablet 43 daily. [facility] vitamin C 0 Yes 1000mg Take 1,000 Univers with derrell 5-30 mg by ity of hips 1,000 12:56: mouth [place] mg tablet 43 daily. [facility] Branch vitamin C 2022-0 Yes 1000mg Take 1,000 Univers with derrell 5-30 mg by ity of hips 1,000 12:56: mouth [place] mg tablet 43 daily. [facility] Branch vitamin C 2022-0 Yes 1000mg Take 1,000 Univers with derrell 5-30 mg by ity of hips 1,000 12:56: mouth [place] mg tablet 43 daily. [facility] Branch vitamin C 2022-0 Yes 1000mg Take 1,000 Univers with derrell 5-30 mg by ity of hips 1,000 12:56: mouth [place] mg tablet 43 daily. [facility] Branch vitamin C 2022-0 Yes 1000mg Take 1,000 Univers with derrell 5-30 mg by ity of hips 1,000 12:56: mouth [place] mg tablet 43 daily. [facility] Branch vitamin C 2022-0 Yes 1000mg Take 1,000 Univers with derrell 5-30 mg by ity of hips 1,000 12:56: mouth [place] mg tablet 43 daily. [facility] Branch vitamin C 0 Yes 1000mg Take 1,000 Univers with derrell 5-30 mg by ity of hips 1,000 12:56: mouth [place] mg tablet 43 daily. [facility] Branch vitamin C 0 Yes 1000mg Take 1,000 Univers with derrell 5-30 mg by ity of hips 1,000 12:56: mouth [place] mg tablet 43 daily. [facility] Branch vitamin C 0 Yes 1000mg Take 1,000 Univers with derrell 5-30 mg by ity of hips 1,000 12:56: mouth [place] mg tablet 43 daily. [facility] Branch vitamin C 2022-0 Yes 1000mg Take 1,000 Univers with derrell 5-30 mg by ity of hips 1,000 12:56: mouth [place] mg tablet 43 daily. [facility] Branch vitamin C 2022-0 Yes 1000mg Take 1,000 Univers with derrell 5-30 mg by ity of hips 1,000 12:56: mouth [place] mg tablet 43 daily. [facility] Branch vitamin C 2022-0 Yes 1000mg Take 1,000 Univers with derrell 5-30 mg by ity of hips 1,000 12:56: mouth [place] mg tablet 43 daily. [facility] vitamin C 2022-0 Yes 1000mg Take 1,000 Univers with derrell 5-30 mg by ity of hips 1,000 12:56: mouth [place] mg tablet 43 daily. [facility] vitamin C 2022-0 Yes 1000mg Take 1,000 Univers with derrell 5-30 mg by ity of hips 1,000 12:56: mouth [place] mg tablet 43 daily. [facility] vitamin C 2022-0 Yes 1000mg Take 1,000 Univers with derrell 5-30 mg by ity of hips 1,000 12:56: mouth [place] mg tablet 43 daily. [facility] vitamin C 2022-0 Yes 1000mg Take 1,000 Univers with derrell 5-30 mg by ity of hips 1,000 12:56: mouth [place] mg tablet 43 daily. [facility] vitamin C 2022-0 Yes 1000mg Take 1,000 Univers with derrell 5-30 mg by ity of hips 1,000 12:56: mouth [place] mg tablet 43 daily. [facility] vitamin C 2022-0 Yes 1000mg Take 1,000 Univers with derrell 5-30 mg by ity of hips 1,000 12:56: mouth [place] mg tablet 43 daily. [facility] vitamin C 0 Yes 1000mg Take 1,000 Univers with derrell 5-30 mg by ity of hips 1,000 12:56: mouth [place] mg tablet 43 daily. [facility] vitamin C 0 Yes 1000mg Take 1,000 Univers with derrell 5-30 mg by ity of hips 1,000 12:56: mouth [place] mg tablet 43 daily. [facility] Branch desitin-zin 2022-0 Yes [id number] Apply to Univers c 5-30 affected ity of oxide-maalo 00:00: area(s) [place] x-nystatin 00 daily. Medical Oint Branch ointment desitin-zin 2022-0 Yes [id number] Apply to Univers c 5-30 affected ity of oxide-maalo 00:00: area(s) [place] x-nystatin 00 daily. Medical Oint Branch ointment desitin-zin 2022-0 Yes [id number] Apply to Univers c 5-30 affected ity of oxide-maalo 00:00: area(s) [place] x-nystatin 00 daily. Medical Oint Branch ointment desitin-zin 2022-0 Yes [id number] Apply to Univers c 5-30 affected ity of oxide-maalo 00:00: area(s) [place] x-nystatin 00 daily. Medical Oint Branch ointment desitin-zin Yes [id number] Apply to Univers c 5-30 affected ity of oxide-maalo 00:00: area(s) [place] x-nystatin 00 daily. Medical Oint Branch ointment desitin-zin Yes [id number] Apply to Univers c 5-30 affected ity [...] No 500mg 500 mg, U nivers n 02-19-28 Oral, ity of (ZITHROMAX) 14:00: 13:19 Q24H, 2 [place] tablet 500 00 :00 doses, Medical mg First dose Branch on 02/19/23 at 0900, Last dose on 02/20/23 at 0900, SABRINA
Re ason for Anti-Infec tive: Empiric Therapy for Suspected Infection< br>Empiric Therapy Site: Respirator y
Durat ion of therapy: 72 hours butalbital- Yes 1{tbl} 1 tablet, Univers acetaminoph 5-27 Oral, ity of en-caff 06:45: Q4HPRN, [place] (ESGIC) 49 Starting Medical 50-325-40 on Sat Branch mg tablet 1 02/19/23 at tablet 0145, Until Discontinu ed, Routine, Pain (scale 4-6), Maigraine headaches NaCl 0.9% 2022- No at 100 Unive rs (NS) IV 02-18 05-30 mL/hr, IV ity of infusion 13:00: 13:13 Infusion, [place] as 00 :57 CONTINUOUS Medical , Starting Branch on Tue02/18/23 at 0800, Until Tue02/22/23 at 0813, Routine ondansetron Yes 4mg 4 mg, Slow Univers (ZOFRAN 02-18 IV Push, ity of (PF)) 12:34: Q6HPRN, [place] injection 4 17 Nausea and Me dical [...] 500mg 500 mg, IV Univers n 02-18 05-26 Piggyback, ity of (ZITHROMAX) 08:00: 19:47 Q24H [...]
Durat ion of therapy: 72 hours rosuvastati Yes 10mg 10 mg, Univ ers n (CRESTOR) 5-26 Oral, QHS, it y of tablet 10 02:00: First dose [place] mg 00 on [facility] 02/17/23 at Branch 2100, Until Discontinu ed, Routine NaCl 0.9% 2022- No at 75 Univer s (NS) IV 02-17 05-26 mL/hr, IV ity of infusion 15:30: 12:55 Infusion, [place] 00 :27 CONTINUOUS Medical , Starting Branch on [facility] 02/17/23 at 1030, Until Tue02/18/23 at 0755, Routine diltiazem No 120mg 120 mg, Uni vers XR 02-17 Oral, ity of (DILT-XR) 14:00: 13:33 DAILY, [place] capsule 120 00 :24 First dose Me dical mg on [facility] 02/17/23 at 0900, Until Discontinu ed busPIRone Yes 20mg 20 mg, Univer s (BUSPAR) 02-17 Oral, BID, ity o f tablet 20 13:00: First dose [place] mg 00 on [facility] 02/17/23 at Branch 0800, Until Discontinu ed, Routine losartan No 50mg 50 mg, Univer s (COZAAR) 02-17- Oral, BID, ity of tablet 50 13:00: 13:33 First dose [place] mg 00 :44 on [facility] 02/17/23 at Branch 0800, Until Discontinu ed, Routine levothyroxi Yes 50ug 50 mcg, Uni vers ne 02-17 Oral, ity of (SYNTHROID) 11:00: QAM-0600, [place] tablet 50 00 First dose Medi cipriano mcg on [facility] 02/17/23 at 0600, Until Discontinu ed, Routine albuterol Yes 2{puff} 2 Puff, Un jer[place] (VENTOLIN) 5-25 Inhalation ity of inhaler 2 10:25: , Q6HPRN, [place] as Puff 29 Starting Medical on [facility] 02/17/23 at 0525, Until Discontinu ed, Routine, Wheezing, Shortness of Breath acetaminoph Yes 650mg 650 mg, Un jerrod en 5-25 Oral, ity of (TYLENOL) 09:45: Q6HPRN, [place] tablet 650 32 Starting Medic al mg on [place] [facility] 02/17/23 at 0445, Until Discontinu ed, Routine, Pain (scale 1-3) MULTIVIT 2022- No Take by Unive rs &MINERALS/F 5-25 05-25 mouth. ity o f ERROUS FUM 08:00: 00:00 [place] (MULTI 47 :00 Medical VITAMIN Branch ORAL) MULTIVIT 2022- No Take by Unive rs &MINERALS/F 5-25 05-25 mouth. ity o f ERROUS FUM 08:00: 00:00 [place] (MULTI 47 :00 Medical VITAMIN Branch ORAL) MULTIVIT 2022- No Take by Unive rs &MINERALS/F 5-25 05-25 mouth. ity o f ERROUS FUM 08:00: 00:00 [place] (MULTI 47 :00 Medical VITAMIN Branch ORAL) MULTIVIT 2022- No Take by Unive rs &MINERALS/F 5-25 05-25 mouth. ity o f ERROUS FUM 08:00: 00:00 [place] (MULTI 47 :00 Medical VITAMIN Branch ORAL) MULTIVIT 2022- No Take by Unive rs &MINERALS/F 5-25 05-25 mouth. ity o f ERROUS FUM 08:00: 00:00 [place] (MULTI 47 :00 Medical VITAMIN Branch ORAL) MULTIVIT 2022- No Take by Unive rs &MINERALS/F 5-25 05-25 mouth. ity o f ERROUS FUM 08:00: 00:00 [place] (MULTI 47 :00 Medical VITAMIN Branch ORAL) MULTIVIT 2022- No Take by Unive rs &MINERALS/F 5-25 05-25 mouth. ity o f ERROUS FUM 08:00: 00:00 [place] (MULTI 47 :00 Medical VITAMIN Branch ORAL) MULTIVIT 2022- No Take by Unive rs &MINERALS/F 5-25 05-25 mouth. ity o f ERROUS FUM 08:00: 00:00 [place] (MULTI 47 :00 Medical VITAMIN Branch ORAL) MULTIVIT 2022- No Take by Unive rs &MINERALS/F 5-25 05-25 mouth. ity o f ERROUS FUM 08:00: 00:00 [place] (MULTI 47 :00 Medical VITAMIN Branch ORAL) MULTIVIT 2022- No Take by Unive rs &MINERALS/F 5-25 05-25 mouth. ity o f ERROUS FUM 08:00: 00:00 [place] (MULTI 47 :00 Medical VITAMIN Branch ORAL) MULTIVIT 2022- No Take by Unive rs &MINERALS/F 5-25 05-25 mouth. ity o f ERROUS FUM 08:00: 00:00 [place] (MULTI 47 :00 Medical VITAMIN Branch ORAL) MULTIVIT 2022- No Take by Unive rs &MINERALS/F 5-25 05-25 mouth. ity o f ERROUS FUM 08:00: 00:00 [place] (MULTI 47 :00 Medical VITAMIN Branch ORAL) MULTIVIT 2022- No Take by Unive rs &MINERALS/F 5-25 05-25 mouth. ity o f ERROUS FUM 08:00: 00:00 [place] (MULTI 47 :00 Medical VITAMIN Branch ORAL) MULTIVIT 2022- No Take by Unive rs &MINERALS/F 5-25 05-25 mouth. ity o f ERROUS FUM 08:00: 00:00 [place] (MULTI 47 :00 Medical VITAMIN Branch ORAL) MULTIVIT 2022- No Take by Unive rs &MINERALS/F 5-25 05-25 mouth. ity o f ERROUS FUM 08:00: 00:00 [place] (MULTI 47 :00 Medical VITAMIN Branch ORAL) MULTIVIT 2022- No Take by Unive rs &MINERALS/F 5-25 05-25 mouth. ity o f ERROUS FUM 08:00: 00:00 [place] (MULTI 47 :00 Medical VITAMIN Branch ORAL) MULTIVIT 2022- No Take by Unive rs &MINERALS/F 5-25 05-25 mouth. ity o f ERROUS FUM 08:00: 00:00 [place] (MULTI 47 :00 Medical VITAMIN Branch ORAL) MULTIVIT 2022- No Take by Unive rs &MINERALS/F 5-25 05-25 mouth. ity o f ERROUS FUM 08:00: 00:00 [place] (MULTI 47 :00 Medical VITAMIN Branch ORAL) MULTIVIT 0 2022- No Take by Unive rs &MINERALS/F 5-25 05-25 mouth. ity o f ERROUS FUM 08:00: 00:00 [place] (MULTI 47 :00 Medical VITAMIN Branch ORAL) MULTIVIT 2022- No Take by Unive rs &MINERALS/F 5-25 05-25 mouth. ity o f ERROUS FUM 08:00: 00:00 [place] (MULTI 47 :00 Medical VITAMIN Branch ORAL) MULTIVIT 0 2022- No Take by Unive rs &MINERALS/F 5-25 05-25 mouth. ity o f ERROUS FUM 08:00: 00:00 [place] (MULTI 47 :00 Medical VITAMIN Branch ORAL) MULTIVIT 0 2022- No Take by Unive rs &MINERALS/F 5-25 05-25 mouth. ity o f ERROUS FUM 08:00: 00:00 [place] (MULTI 47 :00 Medical VITAMIN Branch ORAL) MULTIVIT 2022- No Take by Unive rs &MINERALS/F 5-25 05-25 mouth. ity o f ERROUS FUM 08:00: 00:00 [place] (MULTI 47 :00 Medical VITAMIN Branch ORAL) MULTIVIT 0 2022- No Take by Unive rs &MINERALS/F 5-25 05-25 mouth. ity o f ERROUS FUM 08:00: 00:00 [place] (MULTI 47 :00 Medical VITAMIN Branch ORAL) MULTIVIT 0 2022- No Take by Unive rs &MINERALS/F 5-25 05-25 mouth. ity o f ERROUS FUM 08:00: 00:00 [place] (MULTI 47 :00 Medical VITAMIN Branch ORAL) MULTIVIT 0 2022- No Take by Unive rs &MINERALS/F 5-25 05-25 mouth. ity o f ERROUS FUM 08:00: 00:00 [place] (MULTI 47 :00 Medical VITAMIN Branch ORAL) METHYLCELLU 0 2022- No Unive rs LOSE (FIBER 5-25 05-25 ity of THERAPY 08:00: 00:00 [facility]) 10 :00 Medical Branch METHYLCELLU 2022-0 2022- No Unive rs LOSE (FIBER 5-25 05-25 ity of THERAPY 08:00: 00:00 [facility]) 10 :00 Medical Branch METHYLCELLU 2023-0 2023- No Unive rs LOSE (FIBER 5-25 05-25 ity of THERAPY 08:00: 00:00 [facility]) 10 :00 Medical Branch METHYLCELLU 2023-0 2023- No Unive rs LOSE (FIBER 5-25 05-25 ity of THERAPY 08:00: 00:00 [facility]) 10 :00 Medical Branch METHYLCELLU 2023-0 2023- No Unive rs LOSE (FIBER 5-25 05-25 ity of THERAPY 08:00: 00:00 [facility]) 10 :00 Medical Branch METHYLCELLU 2023-0 2023- No Unive rs LOSE (FIBER 5-25 05-25 ity of THERAPY 08:00: 00:00 [facility]) 10 :00 Medical Branch METHYLCELLU 2023-0 2023- No Unive rs LOSE (FIBER 5-25 05-25 ity of THERAPY 08:00: 00:00 [facility]) 10 :00 Medical Branch METHYLCELLU 2023-0 2023- No Unive rs LOSE (FIBER 5-25 05-25 ity of THERAPY 08:00: 00:00 [facility]) 10 :00 Medical Branch METHYLCELLU 2023-0 2023- No Unive rs LOSE (FIBER 5-25 05-25 ity of THERAPY 08:00: 00:00 [facility]) 10 :00 Medical Branch METHYLCELLU 2023-0 2023- No Unive rs LOSE (FIBER 5-25 05-25 ity of THERAPY 08:00: 00:00 [facility]) 10 :00 Medical Branch METHYLCELLU 2023-0 2023- No Unive rs LOSE (FIBER 5-25 05-25 ity of THERAPY 08:00: 00:00 [facility]) 10 :00 Medical Branch METHYLCELLU 2023-0 2023- No Unive rs LOSE (FIBER 5-25 05-25 ity of THERAPY 08:00: 00:00 [facility]) 10 :00 Medical Branch METHYLCELLU 2023-0 2023- No Unive rs LOSE (FIBER 5-25 05-25 ity of THERAPY 08:00: 00:00 [facility]) 10 :00 Medical Branch METHYLCELLU 2023-0 2023- No Unive rs LOSE (FIBER 5-25 05-25 ity of THERAPY 08:00: 00:00 [facility]) 10 :00 Medical Branch METHYLCELLU 2023-0 2023- No Unive rs LOSE (FIBER 5-25 05-25 ity of THERAPY 08:00: 00:00 [facility]) 10 :00 Medical Branch METHYLCELLU 2023-0 2023- No Unive rs LOSE (FIBER 5-25 05-25 ity of THERAPY 08:00: 00:00 [facility]) 10 :00 Medical Branch METHYLCELLU 2023-0 2023- No Unive rs LOSE (FIBER 5-25 05-25 ity of THERAPY 08:00: 00:00 [facility]) 10 :00 Medical Branch METHYLCELLU 2023-0 2023- No Unive rs LOSE (FIBER 5-25 05-25 ity of THERAPY 08:00: 00:00 [facility]) 10 :00 Medical Branch METHYLCELLU 2023-0 2023- No Unive rs LOSE (FIBER 5-25 05-25 ity of THERAPY 08:00: 00:00 [facility]) 10 :00 Medical Branch METHYLCELLU 2023-0 2023- No Unive rs LOSE (FIBER 5-25 05-25 ity of THERAPY 08:00: 00:00 [facility]) 10 :00 Medical Branch METHYLCELLU 2023-0 2023- No Unive rs LOSE (FIBER 5-25 05-25 ity of THERAPY 08:00: 00:00 [facility]) 10 :00 Medical Branch METHYLCELLU 2023-0 2023- No Unive rs LOSE (FIBER 5-25 05-25 ity of THERAPY 08:00: 00:00 [facility]) 10 :00 Medical Branch METHYLCELLU 2023-0 2023- No Unive rs LOSE (FIBER 5-25 05-25 ity of THERAPY 08:00: 00:00 [facility]) 10 :00 Medical Branch METHYLCELLU 2023-0 2023- No Unive rs LOSE (FIBER 5-25 05-25 ity of THERAPY 08:00: 00:00 [facility]) 10 :00 Medical Branch METHYLCELLU 2023-0 2023- No Unive rs LOSE (FIBER 5-25 05-25 ity of THERAPY 08:00: 00:00 [facility]) 10 :00 Medical Branch METHYLCELLU 2022- No Unive rs LOSE (FIBER 5-25 05-25 ity of THERAPY 08:00: 00:00 [place] MISC) 10 :00 Medical Branch DOCUSATE 2022- No Take by Unive rs SODIUM 5-25 05-25 mouth. ity of (COLACE 07:58: 00:00 [place] ORAL) 29 :00 Medical Branch DOCUSATE 0 2022- No Take by Unive rs SODIUM 5-25 05-25 mouth. ity of (COLACE 07:58: 00:00 [place] ORAL) 29 :00 Medical Branch DOCUSATE 0 2022- No Take by Unive rs SODIUM 5-25 05-25 mouth. ity of (COLACE 07:58: 00:00 [place] ORAL) 29 :00 Medical Branch DOCUSATE 2022-0 2022- No Take by Unive rs SODIUM 5-25 05-25 mouth. ity of (COLACE 07:58: 00:00 [place] ORAL) 29 :00 Medical Branch DOCUSATE 2022-0 2022- No Take by Unive rs SODIUM 5-25 05-25 mouth. ity of (COLACE 07:58: 00:00 [place] ORAL) 29 :00 Medical Branch DOCUSATE 2022-0 2022- No Take by Unive rs SODIUM 5-25 05-25 mouth. ity of (COLACE 07:58: 00:00 [place] ORAL) 29 :00 Medical Branch DOCUSATE 2022-0 2022- No Take by Unive rs SODIUM 5-25 05-25 mouth. ity of (COLACE 07:58: 00:00 [place] ORAL) 29 :00 Medical Branch DOCUSATE 2022-0 2022- No Take by Unive rs SODIUM 5-25 05-25 mouth. ity of (COLACE 07:58: 00:00 [place] ORAL) 29 :00 Medical Branch DOCUSATE 2022-0 2022- No Take by Unive rs SODIUM 5-25 05-25 mouth. ity of (COLACE 07:58: 00:00 [place] ORAL) 29 :00 Medical Branch DOCUSATE 2022-0 2022- No Take by Unive rs SODIUM [...] [place] ORAL) 29 :00 Medical Branch DOCUSATE 2022-2022- No Take by Unive rs SODIUM 5-25 05-25 mouth. ity of (COLACE 07:58: 00:00 [place] ORAL) 29 :00 Medical Branch DOCUSATE 2022- No Take by Unive rs SODIUM 5-25 05-25 mouth. ity of (COLACE 07:58: 00:00 [place] ORAL) 29 :00 Medical Branch DOCUSATE 2022-2022- No Take by Unive rs SODIUM 5-25 05-25 mouth. ity of (COLACE 07:58: 00:00 [place] ORAL) 29 :00 Medical Branch DOCUSATE 2022-2022- No Take by Unive rs SODIUM 5-25 05-25 mouth. ity of (COLACE 07:58: 00:00 [place] ORAL) 29 :00 Medical Branch DOCUSATE 2022-2022- No Take by Unive rs SODIUM 5-25 [...] mouth ity of EXTRACT 07:57: 00:00 daily. [place] (CRANBERRY 03 :00 Medical ORAL) Branch CRANBERRY 2022- No Take by Univ ers FRUIT 5-25 05-25 mouth ity of EXTRACT 07:57: 00:00 daily. [place] (CRANBERRY 03 :00 Medical ORAL) Branch CRANBERRY 2022- No Take by Univ ers FRUIT 5-25 05-25 mouth ity of EXTRACT 07:57: 00:00 daily. [place] (CRANBERRY 03 :00 Medical ORAL) Branch CRANBERRY 2022- No Take by Univ ers FRUIT 5-25 05-25 mouth ity of EXTRACT 07:57: 00:00 daily. [place] (CRANBERRY 03 :00 Medical ORAL) Branch CRANBERRY 2022- No Take by Univ ers FRUIT 5-25 05-25 mouth ity of EXTRACT 07:57: 00:00 daily. [place] (CRANBERRY 03 :00 Medical ORAL) Branch CRANBERRY 2022- No Take by Univ ers FRUIT 5-25 05-25 mouth ity of EXTRACT 07:57: 00:00 daily. [place] (CRANBERRY 03 :00 Medical ORAL) Branch CRANBERRY 2022- No Take by Univ ers FRUIT 5-25 05-25 mouth ity of EXTRACT 07:57: 00:00 daily. [place] (CRANBERRY 03 :00 Medical ORAL) Branch CRANBERRY 2022- No Take by Univ ers FRUIT 5-25 05-25 mouth ity of EXTRACT 07:57: 00:00 daily. [place] (CRANBERRY 03 :00 Medical ORAL) Branch CRANBERRY 2022- No Take by Univ ers FRUIT 5-25 05-25 mouth ity of EXTRACT 07:57: 00:00 daily. [place] (CRANBERRY 03 :00 Medical ORAL) Branch CRANBERRY 2022- No Take by Univ ers FRUIT 5-25 05-25 mouth ity of EXTRACT 07:57: 00:00 daily. [place] (CRANBERRY 03 :00 Medical ORAL) Branch CRANBERRY 2022- No Take by Univ ers FRUIT 5-25 05-25 mouth ity of EXTRACT 07:57: 00:00 daily. [place] (CRANBERRY 03 :00 Medical ORAL) Branch CRANBERRY 2022- No Take by Univ ers FRUIT 5-25 05-25 mouth ity of EXTRACT 07:57: 00:00 daily. [place] (CRANBERRY 03 :00 Medical ORAL) Branch CRANBERRY 2022- No Take by Univ ers FRUIT 5-25 05-25 mouth ity of EXTRACT 07:57: 00:00 daily. [place] (CRANBERRY 03 :00 Medical ORAL) Branch CRANBERRY 2022- No Take by Univ ers FRUIT 5-25 05-25 mouth ity of EXTRACT 07:57: 00:00 daily. [place] ([facility] 03 :00 Medical ORAL) [facility] 2022- No Take by [facility] FRUIT 5-25 05-25 mouth ity of EXTRACT 07:57: 00:00 daily. [place] ([facility] 03 :00 Medical ORAL) [facility] 2022- No Take by [facility] FRUIT 5-25 05-25 mouth ity of EXTRACT 07:57: 00:00 daily. [place] ([facility] 03 :00 Medical ORAL) [facility] 2022- No Take by Univ ers FRUIT 5-25 05-25 mouth ity of EXTRACT 07:57: 00:00 daily. [place] (CRANBERRY 03 :00 Medical ORAL) Branch CRANBERRY 2022- No Take by [facility] ers FRUIT 5-25 05-25 mouth ity of EXTRACT 07:57: 00:00 daily. [place] (CRANBERRY 03 :00 Medical ORAL) Branch CRANBERRY 2022- No Take by [facility] ers FRUIT 5-25 05-25 mouth ity of EXTRACT 07:57: 00:00 daily. [place] (CRANBERRY 03 :00 Medical ORAL) Branch CRANBERRY 2022- No Take by [facility] ers FRUIT 5-25 05-25 mouth ity of EXTRACT 07:57: 00:00 daily. [place] (CRANBERRY 03 :00 Medical ORAL) Branch CRANBERRY 2022- No Take by Univ ers FRUIT 5-25 05-25 mouth ity of EXTRACT 07:57: 00:00 daily. [place] (CRANBERRY 03 :00 Medical ORAL) Branch CRANBERRY 2022- No Take by [facility] ers FRUIT 5-25 05-25 mouth ity of EXTRACT 07:57: 00:00 daily. [place] (CRANBERRY 03 :00 Medical ORAL) Branch CRANBERRY 2022- No Take by [facility] ers FRUIT 5-25 05-25 mouth ity of EXTRACT 07:57: 00:00 daily. [place] (CRANBERRY 03 :00 Medical ORAL) Branch CRANBERRY 2022- No Take by [facility] ers FRUIT 5-25 05-25 mouth ity of EXTRACT 07:57: 00:00 daily. [place] (CRANBERRY 03 :00 Medical ORAL) Branch CRANBERRY 2022- No Take by [facility] ers FRUIT 5-25 05-25 mouth ity of EXTRACT 07:57: 00:00 daily. [place] (CRANBERRY 03 :00 Medical ORAL) Branch CRANBERRY 2022- No Take by [facility] ers FRUIT 5-25 05-25 mouth ity of EXTRACT 07:57: 00:00 daily. [place] (CRANBERRY 03 :00 Medical ORAL) Branch morpHINE (2 Yes 2mg 2 mg, Slow Univers mg/mL) 5-25 IV Push, ity of injection 2 07:36: Q4HPRN, Emanuel as mg 16 Starting Medical on [place] Branch 5/25/23 at 0236, Until Discontinu ed, Routine, Chest pain azithromyci 0 2023- No 500mg 500 mg, IV Univers n [...]
Durat ion of therapy: 72 hours ondansetron Yes 4mg Take [address] [facility] (ZOFRAN-ODT 5-15 by mouth [facility] ) 4 MG 06:10: every 8 Medical disintegrat 24 (eight) Cente r ing tablet hours as needed for Nausea. sucralfate Yes 1g Q.5D Take [address] [facility] (CARAFATE) 5-15 by mouth 2 [place] 1 gram 06:10: (two) Medical tablet 24 times Center daily. pantoprazol Yes 40mg Take [address] [facility] e 5-15 by mouth 2 [facility] (PROTONIX) 06:10: (two) Medica l 20 MG 24 times Center tablet daily with breakfast and dinner. montelukast 0 Yes 10mg Take [address] [facility] (SINGULAIR) 5-15 by mouth [facility] 10 mg 06:10: in the Medical tablet 24 morning. Center cyanocobala Yes 1000ug Inject [facility] min 5-15 1,000 mcg [facility] (VITAMIN 06:10: intramuscu Med ical B-12) 1,000 24 larly once Ce nter mcg/mL every 2 injection weeks. levothyroxi Yes 50ug Take [address] [facility] ne 5-15 mcg by [facility] (SYNTHROID, 06:10: mouth Medic al LEVOTHROID) 24 Every Center 50 MCG morning on tablet an empty stomach. fluticasone Yes 2{puff} Inhale [address] [facility] propion-melyssa 5-15 puffs by Luke s meteroL 06:10: mouth via Medic al (ADVAIR) 24 inhaler Center 100-50 every 12 mcg/dose (twelve) diskus hours. inhaler ascorbic 0 Yes 1000mg QD Take 1,000 [...] St (FOLVITE) 1 5-13 05-12 tablet (1 Brunilda kes MG tablet 00:00: 23:59 mg total) Me dical 00 :00 by mouth Center in the morning. predniSONE 2023- No 15mg QD Take [address] [facility] (DELTASONE) 5-13 05-12 tablets Luke s 5 MG tablet 00:00: 23:59 (15 mg Med ical 00 :00 total) by Center mouth in the morning. . atovaquone 0 2023- No 1500mg QD Take [address] (MEPRON) 5-13 05-12 mLs (1,500 [facility] 750 mg/5 mL 00:00: 23:59 mg total) Medical suspension 00 :00 by mouth Cente r in the morning. polyethylen 2022-0 2022- No 17g Q.5D Take 17 g [...] by mouth 2 L ukes MG tablet 14:31: 00:00 (two) Medica l 25 :00 times Center daily. dilTIAZem 2022- No 120mg Q.5D Take [address] (DILACOR 5-12 05-12 mg by [facility] XR) 120 MG 14:: 00:00 mouth 2 Med ical 24 hr 25 :00 (two) Center capsule times daily. rosuvastati 2022- No 10mg QD Take [address] [facility] n (CRESTOR) 5-12 05-12 by mouth [place] 10 MG 14:: 00:00 daily. Medical tablet 25 :00 Center losartan 2022- No 50mg Take [address] [facility] [address] [facility] (COZAAR) 50 5-12 05-12 by mouth 2 L ukes MG tablet 14:: 00:00 (two) Medica l 25 :00 times Center daily before meals. diphenoxyla 2022- No 1{tbl} Take [address] te-atropine 5-12 05-12 tablet by Brunilda luther (LOMOTIL) 14:: 00:00 mouth 4 Medi [...] by mouth Center in the morning. pregabalin 2022-2022- No 150mg Q.[id number] Take [address] [facility] (LYRICA) 02-04 [id number] capsule L ukes 150 MG 14:31: 00:00 3D (150 mg Medical capsule 25 :00 total) by Center mouth in the morning and 1 capsule (150 mg total) at noon and 1 capsule (150 mg total) in the evening. Morning, noon, evening. Max Daily Amount: 450 mg. rimegepant 2022-2022- No Take by [facility] (Nurtec 02-04 mouth Po [facility] ODT) 75 mg 14:25: 00:00 every Medic al TbDL 19 :00 other day. [place] metoclopram 2022- No 10mg Take 10 mg [facility] [...] budesonide- 2022-0 2022- No Q.5D Inhale by [facility] glycopyr-fo 02-04 mouth via Brunilda kes rmoterol 13:51: 00:00 inhaler 2 Med ical (Breztri 56 :00 (two) [facility]) times 160-9-4.8 daily mcg/actuati Rinse on HFAA mouth after. ciprofloxac 2022-0 Yes 500mg Q24H Take [address] [facility] in HCl 02-04 tablet [facility] (CIPRO) 500 00:00: (500 mg Med ical MG tablet 00 total) by [facility] r mouth in the morning. mupirocin Yes Wound care [facility] (BACTROBAN) 5-12 to digits [place] 2 % 00:00: #1-10, Medical ointment 00 daily. Center busPIRone 0 Yes 5mg Q.5D Take 0.[address] [facility] (BUSPAR) 10 5-12 tablets (5 Brunilda kes MG tablet 00:00: mg total) Med ical 00 by mouth Center in the morning and 0.5 tablets (5 mg total) before bedtime. povidone-io Yes Daily [facility]ine 5-12 topically [facility] (BETADINE) 00:00: over toe Med ical 10 % 00 wounds Center external bilaterall solution y. zinc Yes Topically [facility] oxide-leticia -12 as needed. Brunilda kes latum 00:00: Cleanse Medical (CRITIC-AID [address] ) 20-51 % with soap Pste and water. topical Apply paste thick critic aid cream, leave open to air, every mariaa care.. diphenoxyla Yes 1{tbl} Q.25D Take [address] te-atropine 5-12 tablet by [facility] (LOMOTIL) 00:00: mouth in Medi cipriano 2.5-0.025 00 the Center mg per morning tablet and 1 tablet at noon and 1 tablet in the evening and 1 tablet before bedtime. Max Daily Amount: 4 tablets. polycarboph 2023- No 1250mg Q.[id number] Take [address] [facility] [address] [place] -08 30-11 [id number] tablets [facility] (FIBERCON) 00:00: 23:59 3D (1,250 mg M edical 625 mg 00 :00 total) by Center tablet mouth in the morning and 2 tablets (1,250 mg total) at noon and 2 tablets (1,250 mg total) in the evening. dicyclomine 0 2023- No 10mg Q.25D Take [address] (BENTYL) 10 -08 30-11 capsule Luke s MG capsule 00:00: 23:59 (10 mg Medi cipriano 00 :00 total) by Center mouth in the morning and 1 capsule (10 mg total) at noon and 1 capsule (10 mg total) in the evening and 1 capsule (10 mg total) before bedtime. gabapentin 2023- No 300mg QD Take [address] [facility] (NEURONTIN) 02-04- capsule Luke s 300 MG 00:00: 23:59 (300 mg Medical capsule 00 :00 total) by Center mouth nightly. ipratropium 2023- No .5mg Take 2.[address] (ATROVENT) 02-04- mLs (0.5 Luke s 0.02 % 00:00: [...] 650mg Take [address] en 02-04-06 tablets [facility] (TYLENOL) 00:00: 23:59 (650 mg Medi cipriano 325 MG 00 :00 total) by Center tablet mouth every 6 (six) hours as needed for up to 360 days. loperamide 2022- No 6mg Take [address] [facility] (IMODIUM) 2 02-04-22 capsules [place] mg capsule 00:00: 23:59 (6 mg Medic al 00 :00 total) by Center mouth every 6 (six) hours for 10 days. loperamide 2022- No 2mg Take [address] [facility] (IMODIUM) 2 5-12 -22 capsule (2 L ukes mg capsule 00:00: 23:59 mg total) M edical 00 :00 by mouth 4 Center (four) times daily as needed for Diarrhea for up to 10 days. oxyCODONE 2022- No 5mg Take 1 [facility] (ROXICODONE 5-12 -19 tablet (5 Brunilda kes ) 5 MG 00:00: 23:59 mg total) Medic al immediate 00 :00 by mouth Center release every 6 tablet (six) hours as needed for up to 7 days . Max Daily Amount: 20 mg LEVOTHYROXI Yes [id number] TAKE 1 Univers NE 50 mcg 4-10 TABLET BY ity o f tablet 00:00: MOUTH ONCE [place] 00 DAILY IN [facility] MORNING LEVOTHYROXI Yes [id number] TAKE 1 Univers NE 50 mcg 4-10 TABLET BY ity o f tablet 00:00: MOUTH ONCE [place] 00 DAILY IN [facility] MORNING LEVOTHYROXI Yes [id number] TAKE 1 Univers NE 50 mcg 4-10 TABLET BY ity o f tablet 00:00: MOUTH ONCE [place] 00 DAILY IN [facility] MORNING LEVOTHYROXI Yes [id number] TAKE 1 Univers NE 50 mcg 4-10 TABLET BY ity o f tablet 00:00: MOUTH ONCE [place] 00 DAILY IN [facility] MORNING LEVOTHYROXI Yes [id number] TAKE 1 Univers NE 50 mcg 4-10 TABLET BY ity o f tablet 00:00: MOUTH ONCE [place] 00 DAILY IN [facility] MORNING LEVOTHYROXI Yes [id number] TAKE 1 Univers NE 50 mcg 4-10 TABLET BY ity o f tablet 00:00: MOUTH ONCE [place] 00 DAILY IN [facility] MORNING LEVOTHYROXI Yes [id number] TAKE 1 Univers NE 50 mcg 4-10 TABLET BY ity o f tablet 00:00: MOUTH ONCE [place] 00 DAILY IN [facility] MORNING LEVOTHYROXI Yes [id number] TAKE 1 Univers NE 50 mcg 4-10 TABLET BY ity o f tablet 00:00: MOUTH ONCE [place] 00 DAILY IN [facility] MORNING LEVOTHYROXI Yes [id number] TAKE 1 Univers NE 50 mcg 4-10 TABLET BY ity o f tablet 00:00: MOUTH ONCE 00 DAILY IN Medical THE Branch MORNING topiramate 2022- No 50mg Q.5D Take [address] [facility] (TOPAMAX) 12-27 by mouth 2 [place] 25 MG 05:58: 00:00 (two) Medical tablet 12 :00 times Center daily. SUMAtriptan 2022- No 50mg Take [address] [facility] (IMITREX) 12-27 by mouth [facility] 50 MG 05:57: 00:00 as needed Medica l tablet 54 :00 for Center Headaches or Migraine. pantoprazol 2022- No [id number] Take 1 Univers e 40 mg EC 3-21 01- tablet by ity of tablet 00:00: 04:59 mouth once [place] 00 :00 daily Medical Branch pantoprazol 2022-0 2022- No [id number] Take 1 Univers e 40 mg EC 3-01-21 tablet by ity of tablet 00:00: 04:59 mouth once [place] 00 :00 daily Medical Branch pantoprazol 2022-0 2022- No [id number] Take 1 Univers e 40 mg EC 3-21 01- tablet by ity of tablet 00:00: 04:59 mouth once [place] 00 :00 daily Medical Branch PREGABALIN 2022-0 Yes [id number] TAKE 1 Univers 150 mg 3-07 CAPSULE BY ity of capsule 00:00: MOUTH [facility] Medical TIMES Branch DAILY PREGABALIN 2022-0 Yes [id number] TAKE 1 Univers 150 mg 3-07 CAPSULE BY ity of capsule 00:00: MOUTH [facility] Medical TIMES Branch DAILY PREGABALIN 2022-0 Yes [id number] TAKE 1 Univers 150 mg 3-07 CAPSULE BY ity of capsule 00:00: MOUTH [facility] Medical TIMES Branch DAILY PREGABALIN 2022-0 Yes [id number] TAKE 1 Univers 150 mg 3-07 CAPSULE BY ity of capsule 00:00: MOUTH [facility] Medical TIMES Branch DAILY PREGABALIN 2022-0 Yes [id number] TAKE 1 Univers 150 mg 3-07 CAPSULE BY ity of capsule 00:00: MOUTH [facility] Medical TIMES Branch DAILY PREGABALIN 2023-0 Yes [id number] TAKE 1 Univers 150 mg 3-07 CAPSULE BY ity of capsule 00:00: MOUTH [place] 00 THREE Medical TIMES Branch DAILY PREGABALIN 2023-0 Yes [id number] TAKE 1 Univers 150 mg 3-07 CAPSULE BY ity of capsule 00:00: MOUTH [place] 00 THREE Medical TIMES Branch DAILY PREGABALIN 2023-0 Yes [id number] TAKE 1 Univers 150 mg 3-07 CAPSULE BY ity of capsule 00:00: MOUTH [place] 00 THREE Medical TIMES Branch DAILY PREGABALIN 2023-0 Yes [id number] TAKE 1 Univers 150 mg 3-07 CAPSULE BY ity of capsule 00:00: MOUTH [place] 00 THREE Medical TIMES Branch DAILY PREGABALIN 2023-0 Yes [id number] TAKE 1 Univers 150 mg 3-07 CAPSULE BY ity of capsule 00:00: MOUTH [place] 00 THREE Medical TIMES Branch DAILY PREGABALIN 2023-0 Yes [id number] TAKE 1 Univers 150 mg 3-07 CAPSULE BY ity of capsule 00:00: MOUTH [place] 00 THREE Medical TIMES Branch DAILY PREGABALIN 2023-0 Yes [id number] TAKE 1 Univers 150 mg 3-07 CAPSULE BY ity of capsule 00:00: MOUTH [place] 00 THREE Medical TIMES Branch DAILY PREGABALIN 2023-0 Yes [id number] TAKE 1 Univers 150 mg 3-07 CAPSULE BY ity of capsule 00:00: MOUTH [place] 00 [facility] Medical TIMES Branch DAILY mirabegron 2023-0 Yes [id number] 50mg Take 1 Univers (MYRBETRIQ) 2-22 tablet by ity of 50 mg 00:00: mouth in [place] tablet 00 the Medical morning. Branch mirabegron 2023-0 Yes [id number] 50mg Take 1 Univers (MYRBETRIQ) 2-22 tablet by ity of 50 mg 00:00: mouth in [place] tablet 00 the Medical morning. Branch mirabegron 2023-0 Yes [id number] 50mg Take 1 Univers (MYRBETRIQ) 2-22 tablet by ity of 50 mg 00:00: mouth in [place] tablet 00 the Medical morning. Branch mirabegron 2023-0 Yes [id number] 50mg Take 1 Univers (MYRBETRIQ) 2-22 tablet by ity of 50 mg 00:00: mouth in [place] tablet 00 the Medical morning. Branch mirabegron 2023-0 Yes [id number] 50mg Take 1 Univers (MYRBETRIQ) 2-22 tablet by ity of 50 mg 00:00: mouth in [place] tablet 00 the Medical morning. Branch mirabegron 2022-0 Yes [id number] 50mg Take 1 Univers (MYRBETRIQ) 2-22 tablet by ity of 50 mg 00:00: mouth in [place] tablet 00 the Medical morning. Branch mirabegron 2022-0 Yes [id number] 50mg Take 1 Univers (MYRBETRIQ) 2-22 tablet by ity of 50 mg 00:00: mouth in [place] tablet 00 the Medical morning. Branch mirabegron 2022-0 Yes [id number] 50mg Take 1 Univers (MYRBETRIQ) 2-22 tablet by ity of 50 mg 00:00: mouth in [place] tablet 00 the Medical morning. Branch mirabegron 2022-0 Yes [id number] 50mg Take 1 Univers (MYRBETRIQ) 2-22 tablet by ity of 50 mg 00:00: mouth in [place] tablet 00 the Medical morning. Branch mirabegron 2022-0 Yes [id number] 50mg Take 1 Univers (MYRBETRIQ) 2-22 tablet by ity of 50 mg 00:00: mouth in [place] tablet 00 the Medical morning. Branch mirabegron 2022-0 3- No [id number] 50mg Take 1 Univers (MYRBETRIQ) 2-22 05-25 tablet by it y of 50 mg 00:00: 00:00 mouth in [place] tablet 00 :00 the Medical morning. Branch CYANOCOBALA 2022-0 Yes [id number] INJECT 1 Univers MIN 1,000 2-07 ML ity of mcg/mL 00:00: INTRAMUSCU [place] injection 00 LARLY Medical EVERY TWO Branch WEEKS semaglutide 2022-0 Yes [id number] Inject Univers (OZEMPIC) 2-07 0.25 mg ity of 0.25 mg or 00:00: under the [place] 0.5 mg(2 00 skin Medical mg/1.5 mL) weekly. Branch PnIj CYANOCOBALA 2022-0 Yes [id number] INJECT 1 Univers MIN 1,000 2-07 ML ity of mcg/mL 00:00: INTRAMUSCU [place] injection 00 LARLY Medical EVERY TWO Branch WEEKS semaglutide 2023-0 Yes [id number] Inject Univers (OZEMPIC) 2-07 0.25 mg ity of 0.25 mg or 00:00: under the [place] 0.5 mg(2 00 skin Medical mg/1.5 mL) weekly. Branch PnIj CYANOCOBALA Yes [id number] INJECT 1 Univers MIN 1,000 2-07 ML ity of mcg/mL 00:00: INTRAMUSCU [place] injection 00 LARLY Medical EVERY TWO Branch WEEKS semaglutide Yes [id number] Inject Univers (OZEMPIC) 2-07 0.25 mg ity of 0.25 mg or 00:00: under the [place] 0.5 mg(2 00 skin Medical mg/1.5 mL) weekly. Branch PnIj CYANOCOBALA Yes [id number] INJECT 1 Univers MIN 1,000 2-07 ML ity of mcg/mL 00:00: INTRAMUSCU [place] injection 00 LARLY Medical EVERY TWO Branch WEEKS semaglutide Yes [id number] Inject Univers (OZEMPIC) 2-07 0.25 mg ity of 0.25 mg or 00:00: under the [place] 0.5 mg(2 00 skin Medical mg/1.5 mL) weekly. Branch PnIj CYANOCOBALA Yes [id number] INJECT 1 Univers MIN 1,000 2-07 ML ity of mcg/mL 00:00: INTRAMUSCU [place] injection 00 LARLY Medical EVERY TWO Branch WEEKS semaglutide 0 Yes [id number] Inject Univers (OZEMPIC) 2-07 0.25 mg ity of 0.25 mg or 00:00: under the [place] 0.5 mg(2 00 skin Medical mg/1.5 mL) weekly. Branch PnIj CYANOCOBALA Yes [id number] INJECT 1 Univers MIN 1,000 2-07 ML ity of mcg/mL 00:00: INTRAMUSCU [place] injection 00 LARLY Medical EVERY TWO Branch WEEKS semaglutide 0 Yes [id number] Inject Univers (OZEMPIC) 2-07 0.25 mg ity of 0.25 mg or 00:00: under the [place] 0.5 mg(2 00 skin Medical mg/1.5 mL) weekly. Branch PnIj CYANOCOBALA Yes [id number] INJECT 1 Univers MIN 1,000 2-07 ML ity of mcg/mL 00:00: INTRAMUSCU [place] injection 00 LARLY Medical EVERY TWO Branch WEEKS semaglutide Yes [id number] Inject Univers (OZEMPIC) 2-07 0.25 mg ity of 0.25 mg or 00:00: under the [place] 0.5 mg(2 00 skin Medical mg/1.5 mL) weekly. Branch PnIj CYANOCOBALA Yes [id number] INJECT 1 Univers MIN 1,000 2-07 ML ity of mcg/mL 00:00: INTRAMUSCU [place] injection 00 LARLY Medical EVERY TWO Branch WEEKS semaglutide Yes [id number] Inject Univers (OZEMPIC) 2-07 0.25 mg ity of 0.25 mg or 00:00: under the [place] 0.5 mg(2 00 skin Medical mg/1.5 mL) weekly. Branch PnIj CYANOCOBALA Yes [id number] INJECT 1 Univers MIN 1,000 2-07 ML ity of mcg/mL 00:00: INTRAMUSCU [place] injection 00 LARLY Medical EVERY TWO Branch WEEKS semaglutide Yes [id number] Inject Univers (OZEMPIC) 2-07 0.25 mg ity of 0.25 mg or 00:00: under the [place] 0.5 mg(2 00 skin Medical mg/1.5 mL) weekly. Branch PnIj CYANOCOBALA Yes [id number] INJECT 1 Univers MIN 1,000 2-07 ML ity of mcg/mL 00:00: INTRAMUSCU [place] injection 00 LARLY Medical EVERY TWO Branch WEEKS semaglutide Yes [id number] Inject Univers (OZEMPIC) 2-07 0.25 mg ity of 0.25 mg or 00:00: under the [place] 0.5 mg(2 00 skin Medical mg/1.5 mL) weekly. Branch PnIj CYANOCOBALA Yes [id number] INJECT 1 Univers MIN 1,000 2-07 ML ity of mcg/mL 00:00: INTRAMUSCU [place] injection 00 LARLY Medical EVERY TWO Branch WEEKS semaglutide 2023-0 Yes [id number] Inject Univers (OZEMPIC) 2-07 0.25 mg ity of 0.25 mg or 00:00: under the [place] 0.5 mg(2 00 skin Medical mg/1.5 mL) weekly. Branch PnIj CYANOCOBALA 0 Yes [id number] INJECT 1 Univers MIN 1,000 2-07 ML ity of mcg/mL 00:00: INTRAMUSCU [place] injection 00 LARLY Medical EVERY TWO Branch WEEKS semaglutide Yes [id number] Inject Univers (OZEMPIC) 2-07 0.25 mg ity of 0.25 mg or 00:00: under the [place] 0.5 mg(2 00 skin Medical mg/1.5 mL) weekly. Branch PnIj CYANOCOBALA Yes [id number] INJECT 1 Univers MIN 1,000 2-07 ML ity of mcg/mL 00:00: INTRAMUSCU [place] injection 00 LARLY Medical EVERY TWO Branch WEEKS semaglutide Yes [id number] Inject Univers (OZEMPIC) 2-07 0.25 mg ity of 0.25 mg or 00:00: under the [place] 0.5 mg(2 00 skin Medical mg/1.5 mL) weekly. Branch PnIj CYANOCOBALA Yes [id number] INJECT 1 Univers MIN 1,000 2-07 ML ity of mcg/mL 00:00: INTRAMUSCU [place] injection 00 LARLY Medical EVERY TWO Branch WEEKS semaglutide 0 Yes [id number] Inject Univers (OZEMPIC) 2-07 0.25 mg ity of 0.25 mg or 00:00: under the [place] 0.5 mg(2 00 skin Medical mg/1.5 mL) weekly. Branch PnIj CYANOCOBALA Yes [id number] INJECT 1 Univers MIN 1,000 2-07 ML ity of mcg/mL 00:00: INTRAMUSCU [place] injection 00 LARLY Medical EVERY TWO Branch WEEKS semaglutide 0 Yes [id number] Inject Univers (OZEMPIC) 2-07 0.25 mg ity of 0.25 mg or 00:00: under the [place] 0.5 mg(2 00 skin Medical mg/1.5 mL) weekly. Branch PnIj CYANOCOBALA Yes [id number] INJECT 1 Univers MIN 1,000 2-07 ML ity of mcg/mL 00:00: INTRAMUSCU [place] injection 00 LARLY Medical EVERY TWO Branch WEEKS semaglutide Yes [id number] Inject Univers (OZEMPIC) 2-07 0.25 mg ity of 0.25 mg or 00:00: under the [place] 0.5 mg(2 00 skin Medical mg/1.5 mL) weekly. Branch PnIj CYANOCOBALA Yes [id number] INJECT 1 Univers MIN 1,000 2-07 ML ity of mcg/mL 00:00: INTRAMUSCU [place] injection 00 LARLY Medical EVERY TWO Branch WEEKS semaglutide Yes [id number] Inject Univers (OZEMPIC) 2-07 0.25 mg ity of 0.25 mg or 00:00: under the [place] 0.5 mg(2 00 skin Medical mg/1.5 mL) weekly. Branch PnIj CYANOCOBALA Yes [id number] INJECT 1 Univers MIN 1,000 2-07 ML ity of mcg/mL 00:00: INTRAMUSCU [place] injection 00 LARLY Medical EVERY TWO Branch WEEKS semaglutide Yes [id number] Inject Univers (OZEMPIC) 2-07 0.25 mg ity of 0.25 mg or 00:00: under the [place] 0.5 mg(2 00 skin Medical mg/1.5 mL) weekly. Branch PnIj CYANOCOBALA 0 Yes [id number] INJECT 1 Univers MIN 1,000 2-07 ML ity of mcg/mL 00:00: INTRAMUSCU [place] injection 00 LARLY Medical EVERY TWO Branch WEEKS semaglutide Yes [id number] Inject Univers (OZEMPIC) 2-07 0.25 mg ity of 0.25 mg or 00:00: under the [place] 0.5 mg(2 00 skin Medical mg/1.5 mL) weekly. Branch PnIj CYANOCOBALA Yes [id number] INJECT 1 Univers MIN 1,000 2-07 ML ity of mcg/mL 00:00: INTRAMUSCU [place] injection 00 LARLY Medical EVERY TWO Branch WEEKS CYANOCOBALA 2023-0 Yes [id number] INJECT 1 Univers MIN 1,000 2-07 ML ity of mcg/mL 00:00: INTRAMUSCU [place] injection 00 LARLY Medical EVERY TWO Branch WEEKS CYANOCOBALA 2022-0 Yes [id number] INJECT 1 Univers MIN 1,000 2-07 ML ity of mcg/mL 00:00: INTRAMUSCU [place] injection 00 LARLY Medical EVERY TWO Branch WEEKS CYANOCOBALA 2022-0 Yes [id number] INJECT 1 Univers MIN 1,000 2-07 ML ity of mcg/mL 00:00: INTRAMUSCU [place] injection 00 LARLY Medical EVERY TWO Branch WEEKS CYANOCOBALA 2022-0 Yes [id number] INJECT 1 Univers MIN 1,000 2-07 ML ity of mcg/mL 00:00: INTRAMUSCU [place] injection 00 LARLY Medical EVERY TWO Branch WEEKS CYANOCOBALA 0 Yes [id number] INJECT 1 Univers MIN 1,000 2-07 ML ity of mcg/mL 00:00: INTRAMUSCU [place] injection 00 LARLY Medical EVERY TWO Branch WEEKS CYANOCOBALA 2022-0 Yes [id number] INJECT 1 Univers MIN 1,000 2-07 ML ity of mcg/mL 00:00: INTRAMUSCU [place] injection 00 LARLY Medical EVERY TWO Branch WEEKS CYANOCOBALA 2022-0 Yes [id number] INJECT 1 Univers MIN 1,000 2-07 ML ity of mcg/mL 00:00: INTRAMUSCU [place] injection 00 LARLY Medical EVERY TWO Branch WEEKS CYANOCOBALA 2022-0 Yes [id number] INJECT 1 Univers MIN 1,000 2-07 ML ity of mcg/mL 00:00: INTRAMUSCU [place] injection 00 LARLY Medical EVERY TWO Branch WEEKS CYANOCOBALA 2022-0 Yes [id number] INJECT 1 Univers MIN 1,000 2-07 ML ity of mcg/mL 00:00: INTRAMUSCU [place] injection 00 LARLY Medical EVERY TWO Branch WEEKS semaglutide 0 2022- No [id number] Inject Univers (OZEMPIC) 2-07 05-25 0.25 mg [...] 12 mcg/dose (twelve) diskus hours. inhaler rosuvastati 2023-0 Yes 10mg QD Take [address] [facility] (CRESTOR) 1-30 by mouth Luke s 10 MG 14:26: daily. Medical tablet 13 Center losartan 2022-0 Yes 50mg Take [address] [facility] (COZAAR) 50 1-30 by mouth 2 Brunilda kes MG tablet 14:26: (two) Medical 13 times Center daily before meals. ascorbic 3-0 Yes 1000mg QD Take 1,000 C HI [...] with derrell hips) 1000 MG tablet citalopram 3-0 Yes 40mg QD Take 40 mg C [...] 14:26: mouth Medica l (ascorbic 13 daily. [place] acid with derrell hips) 1000 MG tablet [...] 14:26: mouth Medica l (ascorbic 13 daily. [place] acid with derrell hips) 1000 MG tablet [...] First dose [place] mg 00 on [facility] 10/19/22 at Branch 2100, Until Discontinu ed, Routine lactulose 0 Yes 30mL 30 mL, Univer s (CEPHULAC) 1-25 Oral, BID, ity of solution 30 02:00: First dose [place] mL 00 (after Medical last Branch modificati on) on 10/19/22 at 2000, Until Discontinu ed, Routine SUMAtriptan 2022- No 50mg 50 mg, Uni vers (IMITREX) 10-1924 Oral, ity of tablet 50 20:15: 21:00 ONCE, 1 [place] mg 00 :00 dose, On [facility] 10/19/22 at 1415, Routine NaCl 0.9% 2022- No 500mL at 999 Univ ers (NS) bolus 10-19 mL/hr, 500 it y of infusion 19:30: 18:59 mL, IV [place] 500 mL 00 :00 Piggyback, Medical ONCE, 1 Branch dose, On Tue10/19/22 at 1330, STAT MULTIVIT Yes Take by Univer s &MINERALS/F -24 mouth. ity of ERROUS FUM 17:49: [place] ([address] VITAMIN [place] ORAL) METHYLCELLU Yes Univer s LOSE (FIBER 1-24 ity of THERAPY 17:49: [facility]) [address] [place] [address] DOCUSATE [facility] mouth. ity of (COLACE 17:49: [place] ORAL) [address] [place] [address] vitamin C Yes 1000mg Take 1,000 Univers with derrell 1-24 mg by ity of hips 1,000 17:49: mouth [place] mg tablet 09 daily. [facility] CRANBERRY Yes Take by [facility] rs FRUIT -24 mouth ity of EXTRACT 17:49: daily. [place] (CRAN[place]Y 09 Medical ORAL) [place] MULTIVIT Yes Take by Univer s &MINERALS/F -24 mouth. ity of ERROUS FUM 17:49: [place] ([facility] 09 Medical VITAMIN Branch ORAL) METHYLCELLU 0 Yes Univer s LOSE (FIBER 1-24 ity of THERAPY 17:49: [facility]) 09 Medical Branch DOCUSATE Yes Take by Univer s SODIUM 1-24 mouth. ity of (COLACE 17:49: [place] ORAL) 09 Medical Branch vitamin C Yes 1000mg Take 1,000 Univers with derrell 1-24 mg by ity of hips 1,000 17:49: mouth [place] mg tablet 09 daily. Medical Branch CRANBERRY Yes Take by Unive rs FRUIT 1-24 mouth ity of EXTRACT 17:49: daily. [place] ([place] 09 Medical ORAL) Branch MULTIVIT Yes Take by Univer s &MINERALS/F 1-24 mouth. ity of ERROUS FUM 17:49: [place] (MULTI 09 Medical VITAMIN Branch ORAL) METHYLCELLU [...] 1-24 mouth ity of EXTRACT 17:49: daily. [place] ([place] 09 Medical ORAL) Branch MULTIVIT Yes Take by Univer s &MINERALS/F 1-24 mouth. ity of ERROUS FUM 17:49: [place] (MULTI 09 Medical VITAMIN Branch ORAL) METHYLCELLU [...] 1-24 mouth ity of EXTRACT 17:49: daily. [place] (CRAN[place]Y 09 Medical ORAL) Branch MULTIVIT Yes Take by Univer s &MINERALS/F 1-24 mouth. ity of ERROUS FUM 17:49: [place] (MULTI 09 Medical VITAMIN Branch ORAL) METHYLCELLU Yes Univer s LOSE (FIBER 1-24 ity of THERAPY 17:49: [facility]) Medical Branch DOCUSATE Yes Take by Univer s SODIUM 1-24 mouth. ity of (COLACE 17:49: [place] ORAL) Medical Branch vitamin C Yes 1000mg Take 1,000 [facility] with derrell 1-24 mg by ity of hips 1,000 17:49: mouth [place] mg tablet 09 daily. Medical Branch CRANBERRY Yes Take by Unive rs FRUIT 1-24 mouth ity of EXTRACT 17:49: daily. [place] ([place] 09 Medical ORAL) Branch MULTIVIT Yes Take by Univer s &MINERALS/F 1-24 mouth. ity of ERROUS FUM 17:49: [place] (MULTI 09 Medical VITAMIN Branch ORAL) METHYLCELLU Yes Univer s LOSE (FIBER 1-24 ity of THERAPY 17:49: [facility]) Medical Branch DOCUSATE Yes Take by Univer s SODIUM 1-24 mouth. ity of (COLACE 17:49: [place] ORAL) Medical Branch vitamin C Yes 1000mg Take 1,000 [facility] with derrell 1-24 mg by ity of hips 1,000 17:49: mouth [place] mg tablet 09 daily. Medical Branch CRANBERRY Yes Take by Unive rs FRUIT 1-24 mouth ity of EXTRACT 17:49: daily. [place] (CR[place] 09 Medical ORAL) Branch MULTIVIT Yes Take by Univer s &MINERALS/F 1-24 mouth. ity of ERROUS FUM 17:49: [place] (MULTI 09 Medical VITAMIN Branch ORAL) METHYLCELLU 0 Yes Univer s LOSE (FIBER 1-24 ity of THERAPY 17:49: [facility]) Medical Branch DOCUSATE Yes Take by Univer s SODIUM 1-24 mouth. ity of (COLACE 17:49: [place] ORAL) Medical Branch vitamin C Yes 1000mg Take 1,000 [facility] with derrell 1-24 mg by ity of hips 1,000 17:49: mouth [place] mg tablet 09 daily. Medical Branch CRANBERRY Yes Take by Unive rs FRUIT 1-24 mouth ity of EXTRACT 17:49: daily. [place] ([place] 09 Medical ORAL) Branch MULTIVIT Yes Take by Univer s &MINERALS/F 1-24 mouth. ity of ERROUS FUM 17:49: [place] ([place] [address] Medical VITAMIN Branch ORAL) METHYLCELLU Yes Univer [...] 1-24 mouth ity of EXTRACT 17:49: daily. [place] ([place] 09 Medical ORAL) Branch MULTIVIT Yes Take by Univer s &MINERALS/F 1-24 mouth. ity of ERROUS FUM 17:49: [place] ([place] [address] Medical VITAMIN Branch ORAL) METHYLCELLU Yes Univer s LOSE (FIBER 1-24 ity of THERAPY 17:49: [place] MISC) [address] [place] [address] Branch DOCUSATE Yes Take by Univer s SODIUM 1-24 mouth. ity of (COLACE 17:49: [place] ORAL) [address] [place] [address] Branch vitamin C Yes 1000mg Take 1,000 [facility] with derrell 1-24 mg by ity of hips 1,000 17:49: mouth [place] mg tablet 09 daily. Medical Branch CRANBERRY Yes Take by Unive rs FRUIT 1-24 mouth ity of EXTRACT 17:49: daily. [place] (CR[place] 09 Medical ORAL) Branch MULTIVIT Yes Take by Univer s &MINERALS/F 1-24 mouth. ity of ERROUS FUM 17:49: [place] ([place] [address] Medical VITAMIN Branch ORAL) METHYLCELLU Yes Univer [...] 1-24 mouth ity of EXTRACT 17:49: daily. [place] ([place] 09 Medical ORAL) Branch MULTIVIT Yes Take by Univer s &MINERALS/F 1-24 mouth. ity of ERROUS FUM 17:49: [place] (MULTI 09 Medical VITAMIN Branch ORAL) METHYLCELLU Yes Univer s LOSE (FIBER 1-24 ity of THERAPY 17:49: [place] MIS) 09 Medical Branch DOCUSATE Yes Take by Univer s SODIUM 1-24 mouth. ity of (COLACE 17:49: [place] ORAL) 09 [facility] Branch vitamin C Yes 1000mg Take 1,000 Univers with derrell 1-24 mg by ity of hips 1,000 17:49: mouth [place] mg tablet 09 daily. Medical Branch CRANBERRY Yes Take by Unive rs FRUIT 1-24 mouth ity of EXTRACT 17:49: daily. [place] (CR[place] 09 Medical ORAL) [place] MULTIVIT Yes Take by Univer s &MINERALS/F 1-24 mouth. ity of ERROUS FUM 17:49: [place] (MULTI 09 Medical VITAMIN Branch ORAL) METHYLCELLU Yes Univer s LOSE (FIBER 1-24 ity of THERAPY 17:49: [place] [facility]) Medical Branch DOCUSATE Yes Take by Univer s SODIUM 1-24 mouth. ity of (COLACE 17:49: [place] ORAL) [address] [place] [address] Branch vitamin C Yes 1000mg Take 1,000 Univers with derrell 1-24 mg by ity of hips 1,000 17:49: mouth [place] mg tablet 09 daily. Medical Branch CRANBERRY Yes Take by Unive rs FRUIT 1-24 mouth ity of EXTRACT 17:49: daily. [place] ([place] 09 Medical ORAL) Branch MULTIVIT Yes Take by Univer s &MINERALS/F 1-24 mouth. ity of ERROUS FUM 17:49: [place] (MULTI 09 Medical VITAMIN Branch ORAL) METHYLCELLU [...] 1-24 mouth ity of EXTRACT 17:49: daily. [place] ([place] 09 Medical ORAL) Branch MULTIVIT Yes [...] 1-24 mouth ity of EXTRACT 17:49: daily. [place] ([place] 09 Medical ORAL) Branch MULTIVIT Yes [...] 1-24 mouth ity of EXTRACT 17:49: daily. [place] ([place] 09 Medical ORAL) Branch MULTIVIT Yes Take by Univer s &MINERALS/F 1-24 mouth. ity of ERROUS FUM 17:49: [place] (MULTI 09 Medical VITAMIN Branch ORAL) METHYLCELLU Yes Univer s LOSE (FIBER 1-24 ity of THERAPY 17:49: [facility]) Medical Branch DOCUSATE Yes Take by Univer s SODIUM 1-24 mouth. ity of (COLACE 17:49: [place] ORAL) [address] [place] [address] Branch vitamin C Yes 1000mg Take 1,000 [facility] with derrell 1-24 mg by ity of hips 1,000 17:49: mouth [place] mg tablet 09 daily. Medical Branch CRANBERRY Yes Take by Unive rs FRUIT 1-24 mouth ity of EXTRACT 17:49: daily. [place] ([place] 09 Medical ORAL) [place] MULTIVIT Yes Take by Univer s &MINERALS/F 1-24 mouth. ity of ERROUS FUM 17:49: [place] ([place] [address] Medical VITAMIN Branch ORAL) METHYLCELLU Yes Univer s LOSE (FIBER 1-24 ity of THERAPY 17:49: [facility]) [address] [place] [address] Branch DOCUSATE Yes Take by Univer s SODIUM 1-24 mouth. ity of (COLACE 17:49: [place] ORAL) [address] [place] [address] Branch vitamin C Yes 1000mg Take 1,000 Univers with derrell 1-24 mg by ity of hips 1,000 17:49: mouth [place] mg tablet 09 daily. Medical Branch CRANBERRY Yes Take by Unive rs FRUIT 1-24 mouth ity of EXTRACT 17:49: daily. [place] ([place] 09 Medical ORAL) [place] MULTIVIT Yes Take by Univer s &MINERALS/F 1-24 mouth. ity of ERROUS FUM 17:49: [place] (MULTI 09 Medical VITAMIN Branch ORAL) METHYLCELLU Yes Univer s LOSE (FIBER 1-24 ity of THERAPY 17:49: [facility]) [address] [place] [address] Branch DOCUSATE Yes Take by Univer s SODIUM 1-24 mouth. ity of (COLACE 17:49: [place] ORAL) [address] [place] [address] Branch vitamin C Yes 1000mg Take 1,000 Univers with derrell 1-24 mg by ity of hips 1,000 17:49: mouth [place] mg tablet 09 daily. Medical Branch CRANBERRY Yes Take by Unive rs FRUIT 1-24 mouth ity of EXTRACT 17:49: daily. [place] ([place] 09 Medical ORAL) [place] MULTIVIT Yes Take by Univer s &MINERALS/F 1-24 mouth. ity of ERROUS FUM 17:49: [place] (MULTI 09 Medical VITAMIN Branch ORAL) METHYLCELLU [...] 1-24 mouth ity of EXTRACT 17:49: daily. [place] ([place] 09 Medical ORAL) [place] MULTIVIT Yes Take by Univer s &MINERALS/F 1-24 mouth. ity of ERROUS FUM 17:49: [place] ([facility] 09 Medical VITAMIN Branch ORAL) METHYLCELLU Yes Univer s LOSE (FIBER 1-24 ity of THERAPY 17:49: [place] MISC) [address] [place] [address] Branch DOCUSATE Yes Take by Univer s SODIUM 1-24 mouth. ity of (COLACE 17:49: [place] ORAL) [address] [place] [address] Branch vitamin C Yes 1000mg Take 1,000 Univers with derrell 1-24 mg by ity of hips 1,000 17:49: mouth [place] mg tablet 09 daily. Medical Branch CRANBERRY Yes Take by Unive rs FRUIT 1-24 mouth ity of EXTRACT 17:49: daily. [place] ([place] 09 Medical ORAL) Branch MULTIVIT Yes Take by Univer s &MINERALS/F 1-24 mouth. ity of ERROUS FUM 17:49: [place] (MULTI 09 Medical VITAMIN Branch ORAL) METHYLCELLU [...] 1-24 mouth ity of EXTRACT 17:49: daily. [place] ([place] 09 Medical ORAL) Branch MULTIVIT Yes Take by Univer s &MINERALS/F 1-24 mouth. ity of ERROUS FUM 17:49: [place] (MULTI 09 Medical VITAMIN Branch ORAL) METHYLCELLU [...] 1-24 mouth ity of EXTRACT 17:49: daily. [place] ([place] 09 Medical ORAL) Branch MULTIVIT Yes Take by Univer s &MINERALS/F 1-24 mouth. ity of ERROUS FUM 17:49: [place] (MULTI 09 Medical VITAMIN Branch ORAL) METHYLCELLU [...] 1-24 mouth ity of EXTRACT 17:49: daily. [place] ([place] 09 Medical ORAL) Branch MULTIVIT Yes Take by Univer s &MINERALS/F 1-24 mouth. ity of ERROUS FUM 17:49: [place] ([facility] 09 Medical VITAMIN Branch ORAL) METHYLCELLU Yes Univer s LOSE (FIBER 1-24 ity of THERAPY 17:49: [facility]) Medical Branch DOCUSATE Yes Take by Univer s SODIUM 1-24 mouth. ity of (COLACE 17:49: [place] ORAL) Medical Branch vitamin C Yes 1000mg Take 1,000 Univers with derrell 1-24 mg by ity of hips 1,000 17:49: mouth [place] mg tablet 09 daily. Medical Branch CRANBERRY Yes Take by Unive rs FRUIT 1-24 mouth ity of EXTRACT 17:49: daily. [place] ([place] 09 Medical ORAL) Branch MULTIVIT Yes Take by Univer s &MINERALS/F 1-24 mouth. ity of ERROUS FUM 17:49: [place] ([facility] 09 Medical VITAMIN Branch ORAL) METHYLCELLU Yes Univer s LOSE (FIBER 1-24 ity of THERAPY 17:49: [facility]) Medical Branch DOCUSATE Yes Take by Univer s SODIUM 1-24 mouth. ity of (COLACE 17:49: [place] ORAL) Medical Branch vitamin C Yes 1000mg Take 1,000 Univers with derrell 1-24 mg by ity of hips 1,000 17:49: mouth [place] mg tablet 09 daily. Medical Branch CRANBERRY Yes Take by Unive rs FRUIT 1-24 mouth ity of EXTRACT 17:49: daily. [place] ([place] 09 Medical ORAL) Branch MULTIVIT Yes Take by Univer s &MINERALS/F 1-24 mouth. ity of ERROUS FUM 17:49: [place] ([facility] 09 Medical VITAMIN Branch ORAL) METHYLCELLU Yes Univer s LOSE (FIBER 1-24 ity of THERAPY 17:49: [facility]) Medical Branch DOCUSATE Yes Take by Univer s SODIUM 1-24 mouth. ity of (COLACE 17:49: [place] ORAL) Medical Branch vitamin C Yes 1000mg Take 1,000 Univers with dererll 1-24 mg by ity of hips 1,000 17:49: mouth [place] mg tablet 09 daily. Medical Branch CRANBERRY 2023-0 Yes Take by Unive rs FRUIT 1-24 mouth ity of EXTRACT 17:49: daily. [place] ([place] 09 Medical ORAL) Branch MULTIVIT Yes Take by Univer s &MINERALS/F 1-24 mouth. ity of ERROUS FUM 17:49: [place] (MULTI 09 Medical VITAMIN Branch ORAL) METHYLCELLU Yes Univer s LOSE (FIBER 1-24 ity of THERAPY 17:49: [facility]) Medical Branch DOCUSATE Yes Take by Univer s SODIUM 1-24 mouth. ity of (COLACE 17:49: [place] ORAL) Medical Branch vitamin C Yes 1000mg Take 1,000 Univers with derrell 1-24 mg by ity of hips 1,000 17:49: mouth [place] mg tablet 09 daily. Medical Branch CRANBERRY Yes Take by Unive rs FRUIT 1-24 mouth ity of EXTRACT 17:49: daily. [place] ([place] 09 Medical ORAL) Branch MULTIVIT Yes Take by Univer s &MINERALS/F 1-24 mouth. ity of ERROUS FUM 17:49: [place] ([facility] 09 Medical VITAMIN Branch ORAL) METHYLCELLU Yes Univer s LOSE (FIBER 1-24 ity of THERAPY 17:49: [facility]) [address] [place] [address] Branch DOCUSATE Yes Take by Univer s SODIUM 1-24 mouth. ity of (COLACE 17:49: [place] ORAL) [address] [place] [address] Branch vitamin C Yes 1000mg Take 1,000 Univers with derrell 1-24 mg by ity of hips 1,000 17:49: mouth [place] mg tablet 09 daily. Medical Branch CRANBERRY Yes Take by Unive rs FRUIT 1-24 mouth ity of EXTRACT 17:49: daily. [place] ([place] 09 Medical ORAL) Branch MULTIVIT Yes Take by Univer s &MINERALS/F 1-24 mouth. ity of ERROUS FUM 17:49: [place] ([facility] 09 Medical VITAMIN Branch ORAL) METHYLCELLU Yes Univer s LOSE (FIBER 1-24 ity of THERAPY 17:49: [facility]) Medical Branch DOCUSATE Yes Take by Univer s SODIUM 1-24 mouth. ity of (COLACE 17:49: [place] ORAL) Medical Branch vitamin C Yes 1000mg Take 1,000 Univers with derrell 1-24 mg by ity of hips 1,000 17:49: mouth [place] mg tablet 09 daily. Medical Branch CRANBERRY Yes Take by Unive rs FRUIT 1-24 mouth ity of EXTRACT 17:49: daily. [place] ([place] 09 Medical ORAL) Branch MULTIVIT Yes Take by Univer s &MINERALS/F 1-24 mouth. ity of ERROUS FUM 17:49: [place] (MULTI 09 Medical VITAMIN Branch ORAL) METHYLCELLU [...] 1-24 mouth ity of EXTRACT 17:49: daily. [place] ([place] 09 Medical ORAL) Branch MULTIVIT Yes Take by Univer s &MINERALS/F 1-24 mouth. ity of ERROUS FUM 17:49: [place] (MULTI 09 Medical VITAMIN Branch ORAL) METHYLCELLU [...] 1-24 mouth ity of EXTRACT 17:49: daily. [place] ([place] 09 Medical ORAL) Branch MULTIVIT Yes Take by Univer s &MINERALS/F 1-24 mouth. ity of ERROUS FUM 17:49: [place] (MULTI 09 Medical VITAMIN Branch ORAL) METHYLCELLU Yes Univer s LOSE (FIBER 1-24 ity of THERAPY 17:49: [facility]) 09 Medical Branch DOCUSATE Yes Take by Univer s SODIUM 1-24 mouth. ity of (COLACE 17:49: [place] ORAL) 09 Medical Branch vitamin C Yes 1000mg Take 1,000 Univers with dererll 1-24 mg by ity of hips 1,000 17:49: mouth [place] mg tablet 09 daily. Medical Branch CRANBERRY Yes Take by Unive rs FRUIT 1-24 mouth ity of EXTRACT 17:49: daily. [place] ([place] 09 Medical ORAL) Branch MULTIVIT Yes Take by Univer s &MINERALS/F 1-24 mouth. ity of ERROUS FUM 17:49: [place] (MULTI 09 Medical VITAMIN Branch ORAL) METHYLCELLU Yes Univer s LOSE (FIBER 1-24 ity of THERAPY 17:49: [facility]) 09 Medical Branch DOCUSATE Yes Take by Univer s SODIUM 1-24 mouth. ity of (COLACE 17:49: [place] ORAL) Medical Branch vitamin C Yes 1000mg Take 1,000 Univers with derrell 1-24 mg by ity of hips 1,000 17:49: mouth [place] mg tablet 09 daily. Medical Branch CRANBERRY Yes Take by Unive rs FRUIT 1-24 mouth ity of EXTRACT 17:49: daily. [place] ([place] 09 Medical ORAL) Branch MULTIVIT Yes Take by Univer s &MINERALS/F 1-24 mouth. ity of ERROUS FUM 17:49: [place] (MULTI 09 Medical VITAMIN Branch ORAL) METHYLCELLU Yes Univer s LOSE (FIBER 1-24 ity of THERAPY 17:49: [facility]) 09 Medical Branch DOCUSATE Yes Take by Univer s SODIUM 1-24 mouth. ity of (COLACE 17:49: [place] ORAL) 09 Medical Branch vitamin C Yes 1000mg Take 1,000 Univers with derrell 1-24 mg by ity of hips 1,000 17:49: mouth [place] mg tablet 09 daily. Medical Branch CRANBERRY Yes Take by Unive rs FRUIT 1-24 mouth ity of EXTRACT 17:49: daily. [place] ([place] 09 Medical ORAL) Branch MULTIVIT Yes Take by Univer s &MINERALS/F 1-24 mouth. ity of ERROUS FUM 17:49: [place] (MULTI 09 Medical VITAMIN Branch ORAL) METHYLCELLU Yes Univer s LOSE (FIBER 1-24 ity of THERAPY 17:49: [facility]) Medical Branch DOCUSATE Yes Take by Univer s SODIUM 1-24 mouth. ity of (COLACE 17:49: [place] ORAL) Medical Branch vitamin C Yes 1000mg Take 1,000 Univers with derrell 1-24 mg by ity of hips 1,000 17:49: mouth [place] mg tablet 09 daily. Medical Branch CRANBERRY Yes Take by Unive rs FRUIT 1-24 mouth ity of EXTRACT 17:49: daily. [place] ([place] 09 Medical ORAL) Branch MULTIVIT Yes Take by Univer s &MINERALS/F 1-24 mouth. ity of ERROUS FUM 17:49: [place] ([facility] 09 Medical VITAMIN Branch ORAL) METHYLCELLU Yes Univer s LOSE (FIBER 1-24 ity of THERAPY 17:49: [facility]) [address] [place] [address] Branch DOCUSATE Yes Take by Univer s SODIUM 1-24 mouth. ity of (COLACE 17:49: [place] ORAL) Medical Branch vitamin C Yes 1000mg Take 1,000 [facility] with derrell 1-24 mg by ity of hips 1,000 17:49: mouth [place] mg tablet 09 daily. Medical Branch CRANBERRY Yes Take by Unive rs FRUIT 1-24 mouth ity of EXTRACT 17:49: daily. [place] ([place] 09 Medical ORAL) Branch MULTIVIT Yes Take by Univer s &MINERALS/F 1-24 mouth. ity of ERROUS FUM 17:49: [place] (MULTI 09 Medical VITAMIN Branch ORAL) METHYLCELLU Yes Univer s LOSE (FIBER 1-24 ity of THERAPY 17:49: [facility]) Medical Branch DOCUSATE Yes Take by Univer s SODIUM 1-24 mouth. ity of (COLACE 17:49: [place] ORAL) Medical Branch vitamin C Yes 1000mg Take 1,000 Univers with derrell 1-24 mg by ity of hips 1,000 17:49: mouth [place] mg tablet 09 daily. Medical Branch CRANBERRY Yes Take by Unive rs FRUIT 1-24 mouth ity of EXTRACT 17:49: daily. [place] ([place] 09 Medical ORAL) [place] MULTIVIT Yes Take by Univer s &MINERALS/F 1-24 mouth. ity of ERROUS FUM 17:49: [place] (MULTI 09 Medical VITAMIN Branch ORAL) METHYLCELLU [...] 1-24 mouth ity of EXTRACT 17:49: daily. [place] ([place] 09 Medical ORAL) [place] MULTIVIT Yes Take by Univer s &MINERALS/F 1-24 mouth. ity of ERROUS FUM 17:49: [place] ([facility] 09 Medical VITAMIN Branch ORAL) METHYLCELLU Yes Univer s LOSE (FIBER 1-24 ity of THERAPY 17:49: [facility]) [address] [place] [address] Branch DOCUSATE Yes Take by Univer s SODIUM 1-24 mouth. ity of (COLACE 17:49: [place] ORAL) Medical Branch vitamin C Yes 1000mg Take 1,000 [facility] with derrell 1-24 mg by ity of hips 1,000 17:49: mouth [place] mg tablet 09 daily. Medical Branch CRANBERRY Yes Take by Unive rs FRUIT 1-24 mouth ity of EXTRACT 17:49: daily. [place] ([place] 09 Medical ORAL) Branch MULTIVIT Yes Take by Univer s &MINERALS/F 1-24 mouth. ity of ERROUS FUM 17:49: [place] (MULTI 09 Medical VITAMIN Branch ORAL) METHYLCELLU Yes Univer s LOSE (FIBER 1-24 ity of THERAPY 17:49: [facility]) 09 Medical Branch DOCUSATE 2023-0 Yes Take by Univer s SODIUM 1-24 mouth. ity of (COLACE 17:49: [place] ORAL) Medical Branch vitamin C Yes 1000mg Take 1,000 [facility] with derrell 1-24 mg by ity of hips 1,000 17:49: mouth [place] mg tablet 09 daily. Medical Branch CRANBERRY Yes Take by Unive rs FRUIT 1-24 mouth ity of EXTRACT 17:49: daily. [place] ([place] 09 Medical ORAL) Branch MULTIVIT Yes Take by Univer s &MINERALS/F 1-24 mouth. ity of ERROUS FUM 17:49: [place] (MULTI 09 Medical VITAMIN Branch ORAL) METHYLCELLU [...] 1-24 mouth ity of EXTRACT 17:49: daily. [place] ([place] 09 Medical ORAL) Branch MULTIVIT Yes Take by Univer s &MINERALS/F 1-24 mouth. ity of ERROUS FUM 17:49: [place] (MULTI 09 Medical VITAMIN Branch ORAL) METHYLCELLU [...] 1-24 mouth ity of EXTRACT 17:49: daily. [place] ([place] 09 Medical ORAL) Branch MULTIVIT Yes Take by Univer s &MINERALS/F 1-24 mouth. ity of ERROUS FUM 17:49: [place] (MULTI 09 Medical VITAMIN Branch ORAL) METHYLCELLU Yes Univer s LOSE (FIBER 1-24 ity of THERAPY 17:49: [facility]) Medical Branch DOCUSATE Yes Take by Univer s SODIUM 1-24 mouth. ity of (COLACE 17:49: [place] ORAL) 09 Medical Branch vitamin C Yes 1000mg Take 1,000 [facility] with derrell 1-24 mg by ity of hips 1,000 17:49: mouth [place] mg tablet 09 daily. Medical Branch CRANBERRY Yes Take by Unive rs FRUIT 1-24 mouth ity of EXTRACT 17:49: daily. [place] ([place] 09 Medical ORAL) Branch MULTIVIT Yes Take by Univer s &MINERALS/F 1-24 mouth. ity of ERROUS FUM 17:49: [place] ([facility] 09 Medical VITAMIN Branch ORAL) METHYLCELLU Yes Univer s LOSE (FIBER 1-24 ity of THERAPY 17:49: [facility]) Medical Branch DOCUSATE Yes Take by Univer s SODIUM 1-24 mouth. ity of (COLACE 17:49: [place] ORAL) Medical Branch vitamin C Yes 1000mg Take 1,000 Univers with derrell 1-24 mg by ity of hips 1,000 17:49: mouth [place] mg tablet 09 daily. Medical Branch CRANBERRY Yes Take by Unive rs FRUIT 1-24 mouth ity of EXTRACT 17:49: daily. [place] ([place] 09 Medical ORAL) Branch MULTIVIT Yes Take by Univer s &MINERALS/F 1-24 mouth. ity of ERROUS FUM 17:49: [place] ([place] [address] Medical VITAMIN Branch ORAL) METHYLCELLU Yes Univer s LOSE (FIBER 1-24 ity of THERAPY 17:49: [facility]) Medical Branch DOCUSATE Yes Take by Univer s SODIUM 1-24 mouth. ity of (COLACE 17:49: [place] ORAL) Medical Branch vitamin C Yes 1000mg Take 1,000 [facility] with derrell 1-24 mg by ity of hips 1,000 17:49: mouth [place] mg tablet 09 daily. Medical Branch CRANBERRY Yes Take by Unive rs FRUIT 1-24 mouth ity of EXTRACT 17:49: daily. [place] ([place] 09 Medical ORAL) Branch MULTIVIT Yes Take by Univer s &MINERALS/F 1-24 mouth. ity of ERROUS FUM 17:49: [place] (MULTI 09 Medical VITAMIN Branch ORAL) METHYLCELLU Yes Univer s LOSE (FIBER 1-24 ity of THERAPY 17:49: [facility]) Medical Branch DOCUSATE Yes Take by Univer s SODIUM 1-24 mouth. ity of (COLACE 17:49: [place] ORAL) Medical Branch vitamin C Yes 1000mg Take 1,000 Univers with derrell 1-24 mg by ity of hips 1,000 17:49: mouth [place] mg tablet 09 daily. Medical Branch CRANBERRY Yes Take by Unive rs FRUIT 1-24 mouth ity of EXTRACT 17:49: daily. [place] ([place] 09 Medical ORAL) Branch MULTIVIT Yes Take by Univer s &MINERALS/F 1-24 mouth. ity of ERROUS FUM 17:49: [place] ([facility] 09 Medical VITAMIN Branch ORAL) METHYLCELLU Yes Univer s LOSE (FIBER 1-24 ity of THERAPY 17:49: [facility]) [address] [place] [address] Branch DOCUSATE Yes Take by Univer s SODIUM 1-24 mouth. ity of (COLACE 17:49: [place] ORAL) [address] [place] [address] Branch vitamin C Yes 1000mg Take 1,000 [facility] with [place]rell 1-24 mg by ity of hips 1,000 17:49: mouth [place] mg tablet 09 daily. Medical Branch CRANBERRY Yes Take by Unive rs FRUIT 1-24 mouth ity of EXTRACT 17:49: daily. [place] ([place] 09 Medical ORAL) Branch MULTIVIT Yes Take by Univer s &MINERALS/F 1-24 mouth. ity of ERROUS FUM 17:49: [place] (MULTI 09 Medical VITAMIN Branch ORAL) METHYLCELLU Yes Univer s LOSE (FIBER 1-24 ity of THERAPY 17:49: [facility]) Medical Branch DOCUSATE Yes Take by Univer s SODIUM 1-24 mouth. ity of (COLACE 17:49: [place] ORAL) Medical Branch vitamin C Yes 1000mg Take 1,000 Univers with derrell 1-24 mg by ity of hips 1,000 17:49: mouth [place] mg tablet 09 daily. Medical Branch CRANBERRY Yes Take by Unive rs FRUIT 1-24 mouth ity of EXTRACT 17:49: daily. [place] ([place] Medical ORAL) Branch MULTIVIT Yes Take by Univer s &MINERALS/F 1-24 mouth. ity of ERROUS FUM 17:49: [place] (MULTI Medical VITAMIN Branch ORAL) METHYLCELLU Yes [...] -24 mouth ity of EXTRACT 17:49: daily. [place] ([place]Y Medical ORAL) Branch polyethylen Yes 17g 17 g, Unive rs e glycol 1-24 Oral, BID, ity o f 3350 powder 16:45: First dose [place] 17 g 00 on [facility] 10/19/22 at Branch 1045, Until Discontinu ed, Routine pantoprazol 0 Yes 40mg 40 mg, Univ ers e 1-24 Oral, BID, ity of (PROTONIX) 16:15: First dose [place] 2 mg/mL 00 on [facility] oral 10/19/22 at Branch suspension 1015, 40 mg Until Discontinu ed, Routine montelukast Yes 10mg 10 mg, Univ ers (SINGULAIR) 1-24 Oral, ity of tablet 10 15:00: DAILY, [place] mg 00 First dose Medical on [facility] 10/19/22 at 0900, Until Discontinu ed, Routine citalopram 0 Yes 40mg 40 mg, Unive rs (CELEXA) 1-24 Oral, ity of tablet 40 15:00: DAILY, [place] mg 00 First dose Medical on [facility] 10/19/22 at 0900, Until Discontinu ed, Routine losartan 2023-0 Yes 50mg 50 mg, Univers (COZAAR) 124 Oral, BID, ity o f tablet 50 14:00: First dose [place] mg 00 on [facility] 10/19/22 at Branch 0800, Until Discontinu ed, Routine fluticasone 3-0 Yes 2{puff} 2 Puff, Univers propionate 10-19 Inhalation ity of (FLOVENT) 14:00: , Q12H, [place] 110 00 First dose Medical mcg/actuati on [facility] on inhaler 10/19/22 at 2 Puff 0800, Until Discontinu ed, Routine
Is this order for a patient with suspected or confirmed COVID-19 infection? No
Does this order have Pulmonary/ Critical Care approval? No busPIRone 2022-0 Yes 20mg 20 mg, Univer s (BUSPAR) 24 Oral, BID, ity o f tablet 20 14:00: First dose [place] mg 00 on [facility] 10/19/22 at Branch 0800, Until Discontinu ed, Routine FOLIC ACID 2022-0 2022- No Take by Uni vers ORAL 10-19 mouth ity of 13:15: 00:00 daily. [place] 59 :00 [facility] Branch cholecalcif 2022-0 2022- No 1000U Take 1,000 Univers [place], 10-19 Units by ity of vitamin D3, 13:15: 00:00 mouth [place] 25 mcg 59 :00 daily. Medical (1,000 Branch unit) tablet CALCIUM 2022-0 2022- No Take by Univer s ORAL 10-19 mouth ity of 13:15: 00:00 daily. [place] 59 :00 [facility] Branch DOCOSAHEXAN 2022-0 2022- No 1000mg Take 1,000 [facility] OIC 10-19 mg by ity of ACID/EPA 13:15: 00:00 mouth [place] (FISH OIL 59 :00 daily. Medical ORAL) Branch BIOTIN ORAL 2022-0 2022- No Take by Un jerrod 10-19 mouth. ity of 13:15: 00:00 [place] 59 :00 Medical Branch FOLIC ACID 2022-0 2022- No Take by Uni vers ORAL 10-19 mouth ity of 13:15: 00:00 daily. [place] 59 :00 Medical Branch cholecalcif 2023-0 2023- No 1000U Take 1,000 [facility] edmar, 10-19 Units by ity of vitamin D3, 13:15: 00:00 [place] 25 [place] 59 :00 daily. Medical (1,000 Branch unit) tablet CALCIUM 2023-0 2023- No Take by [facility] ORAL 10-19 mouth ity of 13:15: [...] tablet CALCIUM 2023-0 2023- No Take by [facility] ORAL 10-19 mouth ity of 13:15: [...] 2023- No Take by Univer s ORAL 10-1924 mouth ity of 13:15: 00:00 daily. [place] [...] tablet CALCIUM 2023-0 2023- No Take by [place] [facility] ORAL 10-19 mouth ity of 13:15: [...] tablet CALCIUM 2023-0 2023- No Take by [facility] ORAL 10-19 mouth ity of 13:15: 00:00 [...] tablet CALCIUM 2023-0 2023- No Take by [facility] ORAL 10-19 mouth ity of 13:15: [...] tablet CALCIUM 2023-0 2023- No Take by [facility] ORAL 10-19 mouth ity of 13:15: 00:00 daily. [place] 59 :00 Medical Branch DOCOSAHEXAN 2023-0 2023- No 1000mg Take 1,000 [facility] OIC 10-19-24 mg by ity of ACID/EPA 13:15: 00:00 mouth [place] (FISH OIL 59 :00 daily. Medical ORAL) Branch BIOTIN ORAL 2022-0 3- No Take by Un jerrod 10-19 mouth. ity of 13:15: 00:00 [place] 59 :00 Medical Branch FOLIC ACID 3-0 [...] [place] 59 :00 Medical Branch FOLIC ACID 3-0 [...] tablet CALCIUM 3-0 3- No Take by Univer s ORAL 10-19 [...] 2023-0 2023- No Take by Un jerrod 1-24 01-24 [...] tablet CALCIUM 2023-0 2023- No Take by [facility] ORAL 10-19 mouth ity of 13:15: 00:00 daily. [place] 59 :00 Medical Branch DOCOSAHEXAN 2023-0 2023- No 1000mg Take 1,000 [facility] OIC 10-19 mg by ity of ACID/EPA 13:15: 00:00 mouth [place] (FISH OIL 59 :00 daily. Medical ORAL) Branch BIOTIN ORAL 2023-0 2023- No Take by Un jerrod 10-19 mouth. ity of 13:15: 00:00 [place] 59 :00 Medical Branch FOLIC ACID 2023-0 2023- No Take by Uni vers ORAL 10-19 mouth ity of 13:15: 00:00 daily. [place] 59 :00 Medical Branch cholecalcif 2023-0 2023- No 1000U Take 1,000 [facility] edmar, 10-19 Units by ity of vitamin D3, 13:15: 00:00 [place] 25 mcg 59 :00 daily. Medical (1,000 Branch unit) tablet CALCIUM 2023-0 2023- No Take by [facility] ORAL 10-19 mouth ity of 13:15: 00:00 daily. [place] 59 :00 Medical Branch DOCOSAHEXAN 2023-0 2023- No 1000mg Take 1,000 [facility] OIC 10-1924 mg by ity of ACID/EPA 13:15: 00:00 mouth [place] (FISH OIL 59 :00 daily. Medical ORAL) Branch BIOTIN ORAL 2023-0 2023- No Take by Un jerrod 10-19 mouth. ity of 13:15: 00:00 [place] 59 :00 Medical Branch FOLIC ACID 2023-0 [...] tablet CALCIUM 2023-0 2023- No Take by [facility] ORAL 10-19 mouth ity of 13:15: [...] 2023- No Take by Univer s ORAL 10-1924 mouth ity of 13:15: 00:00 daily. [place] [...] 2023- No 1000U Take 1,000 [facility] edmar, 1-24 01-24 Units by ity of vitamin D3, 13:15: [...] tablet CALCIUM 2023-0 2023- No Take by [facility] ORAL 10-19 mouth ity of 13:15: [...] tablet CALCIUM 2023-0 2023- No Take by [facility] ORAL 10-19 mouth ity of 13:15: [...] tablet CALCIUM 2023-0 2023- No Take by [facility] ORAL 10-19 mouth ity of 13:15: 00:00 daily. [place] 59 :00 Medical Branch DOCOSAHEXAN 2023-0 2023- No 1000mg Take 1,000 [facility] OIC 10-1924 mg by ity of ACID/EPA 13:15: 00:00 mouth [place] (FISH OIL 59 :00 daily. Medical ORAL) Branch BIOTIN ORAL 2023-0 2023- No Take by Un jerrod 10-19 mouth. ity of 13:15: 00:00 [place] 59 :00 Medical Branch FOLIC ACID 2023-0 [...] 10-19 mouth ity of 13:15: 00:00 daily. [place] 59 :00 Medical Branch cholecalcif 2022- No 1000U Take 1,000 [facility] edmar, 10-19 Units by ity of vitamin D3, 13:15: 00:00 [place] 25 mcg 59 :00 daily. Medical (1,000 Branch unit) tablet CALCIUM 2022- No Take by [facility] ORAL 10-19 mouth ity of 13:15: 00:00 daily. [place] 59 :00 Medical Branch DOCOSAHEXAN 2022-0 2022- No 1000mg Take 1,000 [facility] OIC 10-19 mg by ity of ACID/EPA 13:15: 00:00 mouth [place] (FISH OIL 59 :00 daily. Medical ORAL) Branch BIOTIN ORAL 2022-0 2022- No Take by Un jerrod 10-19 mouth. ity of 13:15: 00:00 [place] 59 :00 Medical Branch levothyroxi 2022-0 Yes [...] 1 [place] mg 00 :00 dose, On [facility] Branch 10/19/22 at 0345, Routine diltiazem 0 Yes 120mg 120 mg, Univ ers XR 10-19 Oral, BID, ity of (DILT-XR) 05:15: First dose [place] capsule 120 00 (after Medica l mg last Branch modificati on) on [facility] 10/18/22 at 2315, Until Discontinu ed traMADoL 0 2022- No 50mg 50 mg, Univer s (ULTRAM) 10-19 Oral, ONCE ity of tablet 50 05:15: 04:44 NOW, 1 [place] mg 00 :00 dose, On [facility] 10/18/22 at 2315, Routine acetaminoph Yes 650mg 650 mg, Un jerrod en 10-19 Oral, Q6H ity of (TYLENOL) 05:00: ABX, First [place] tablet 650 00 dose on Medica l mg [facility] 10/18/22 at 2300, Until Discontinu ed, Routine lidocaine 0 Yes 1{patch 1 Patch, U nivers (LIDODERM) 10-19 } Topical, ity o f 5 % (700 05:00: Administer [place] mg/patch) 00 over 12 Medical patch 1 Hours, Branch Patch Q12H ABX, First dose on [facility] 10/18/22 at 2300, Until Discontinu ed, SABRINA lactulose 0 2022- No 30mL 30 mL, Unive rs (CEPHULAC) 10-19 Oral, ity of solution 30 04:15: 16:39 DAILY, [place] mL 00 :06 First dose Medical on [facility] 10/18/22 at 2215, Until Discontinu ed, Routine sucralfate 0 Yes 1g 1 g, Oral, U nivers (CARAFATE) 10-19 AC+HS, ity of tablet 1 g 03:45: First dose [place] 00 on [facility] 10/18/22 at Branch 2145, Until Discontinu ed, Routine famotidine 2022-0 Yes 20mg 20 mg, Unive rs (PEPCID AC) 10-19 Oral, BID, it y of tablet 20 03:45: First dose [place] mg 00 on [facility] 10/18/22 at Branch 2145, Until Discontinu ed, Routine simethicone 2022-0 Yes 80mg 80 mg, Univ ers (GAS RELIEF 10-19 Oral, ity of (SIMETHICON 03:45: PC+HS, [place] E)) 00 First dose Medical chewable on [facility] tablet 80 10/18/22 at mg 2145, Until Discontinu ed, Routine sennosides- 2022-0 Yes 1{tbl} 1 tablet, [facility] docusate 10-19 Oral, ity of sodium 03:45: DAILY, [place] (SENOKOT-S) 00 First dose Me dical 8.6-50 mg on Tue [place] per tablet 10/18/22 at 1 tablet 2144, Until Discontinu ed, Routine psyllium 2022-0 2022- No 1{packe 1 Packet, [facility] husk 10-19 t} Oral, ity of (METAMUCIL 03:45: 16:39 DAILY, [place] (SUGAR 00 :06 First dose Medical FREE)) 3.4 on [facility] gram oral 10/18/22 at powder 5, packet 1 Until Packet Discontinu ed, Routine dicyclomine 2022-0 2022- No 20mg 20 mg, Uni vers (BENTYL) 10-19 Oral, QID, ity of tablet 20 03:45: 16:38 First dose [place] mg 00 :09 on [facility] 10/18/22 at Branch 2145, Until Discontinu ed, Routine ondansetron 2022-0 Yes 4mg 4 mg, Unive rs (ZOFRAN-ODT 10-19 Oral, Q8H ity of ) 03:33: ABX, First [place] disintegrat 00 dose on Medic al ing tablet Tue [place] 4 mg 10/18/22 at 2145, Until Discontinu [...] Wheezing, Shortness of Breath polyethylen 2022-0 Yes [id number] 17g Take 1 Univers e glycol 1-24 Packet by ity of 3350 17 00:00: mouth in [place] gram powder 00 the Medical morning Branch and 1 Packet in the evening. lactulose 2022-0 Yes [id number] 30mL Take 30 mL Univers 10 gram/15 1-24 by mouth ity o f mL solution 00:00: in the [facility] 00 morning Medical and 30 mL Branch in the evening. ondansetron 2022-0 Yes [id number] 4mg Take 1 [facility] 4 mg 1-24 tablet by ity of disintegrat 00:00: mouth [place] ing tablet 00 every 8 Medica l (eight) Branch hours as needed for Nausea and Vomiting (N/V). sucralfate 2022-0 Yes [id number] 1g Take 1 Univers 1 gram 1-24 tablet by ity of tablet 00:00: mouth [place] 00 before Medical meals and Branch at bedtime. pantoprazol 2022-0 Yes [id number] 40mg Take 1 Univers e 40 mg EC 1-24 tablet by ity of tablet 00:00: mouth in [place] 00 the Medical morning Branch and 1 tablet in the evening. SUMAtriptan 2022-0 Yes [id number] 50mg Take 1 [facility] 50 mg 1-24 tablet by ity of tablet 00:00: mouth as [place] 00 needed for Medical Migraine. Branch May repeat dose after >=2 hours, max dose 200mg in 24 hours. polyethylen 2023-0 Yes [id number] 17g Take 1 [facility] e glycol 1-24 Packet by ity of 3350 17 00:00: mouth in [place] gram powder 00 the Medical morning Branch and 1 Packet in the evening. lactulose 2023-0 Yes [id number] 30mL Take 30 mL [facility] 10 gram/15 1-24 by mouth ity o f mL solution 00:00: in the [place] morning Medical and 30 mL Branch in the evening. ondansetron 2023-0 Yes [id number] 4mg Take 1 [facility] 4 mg 1-24 tablet by ity of disintegrat 00:00: mouth [place] ing tablet 00 every 8 Medica l (eight) Branch hours as needed for Nausea and Vomiting (N/V). sucralfate 2023-0 Yes [id number] 1g Take 1 [facility] 1 gram 1-24 tablet by ity of tablet 00:00: mouth [place] 00 before Medical meals and Branch at bedtime. pantoprazol 2023-0 Yes [id number] 40mg Take 1 Univers e 40 mg EC 1-24 tablet by ity of tablet 00:00: mouth in [place] 00 the Medical morning Branch and 1 tablet in the evening. SUMAtriptan 2023-0 Yes [id number] 50mg Take 1 [facility] 50 mg 1-24 tablet by ity of tablet 00:00: mouth as [place] 00 needed for Medical Migraine. Branch May repeat dose after >=2 hours, max dose 200mg in 24 hours. polyethylen 2023-0 Yes [id number] 17g Take 1 Univers e glycol 1-24 Packet by ity of 3350 17 00:00: mouth in [place] gram powder 00 the Medical morning Branch and 1 Packet in the evening. lactulose 2023-0 Yes [id number] 30mL Take 30 mL Univers 10 gram/15 1-24 by mouth ity o f mL solution 00:00: in the [facility] morning Medical and 30 mL Branch in the evening. ondansetron 2023-0 Yes [id number] 4mg Take 1 Univers 4 mg 1-24 tablet by ity of disintegrat 00:00: mouth [place] ing tablet 00 every 8 Medica l (eight) Branch hours as needed for Nausea and Vomiting (N/V). sucralfate 2023-0 Yes [id number] 1g Take 1 Univers 1 gram 1-24 tablet by ity of tablet 00:00: mouth [place] 00 before Medical meals and Branch at bedtime. pantoprazol 2023-0 Yes [id number] 40mg Take 1 Univers e 40 mg EC 1-24 tablet by ity of tablet 00:00: mouth in [place] 00 the Medical morning Branch and 1 tablet in the evening. SUMAtriptan 2023-0 Yes [id number] 50mg Take 1 [facility] 50 mg 1-24 tablet by ity of tablet 00:00: mouth as [place] 00 needed for Medical Migraine. Branch May repeat dose after >=2 hours, max dose 200mg in 24 hours. polyethylen 2023-0 Yes [id number] 17g Take 1 Univers e glycol 1-24 Packet by ity of 3350 17 00:00: mouth in [place] gram powder 00 the Medical morning Branch and 1 Packet in the evening. lactulose 2023-0 Yes [id number] 30mL Take 30 mL Univers 10 gram/15 1-24 by mouth ity o f mL solution 00:00: in the morning Medical and 30 mL Branch in the evening. ondansetron 2023-0 Yes [id number] 4mg Take 1 [facility] 4 mg 1-24 tablet by ity of disintegrat 00:00: mouth [place] ing tablet 00 every 8 Medica l (eight) Branch hours as needed for Nausea and Vomiting (N/V). sucralfate 3-0 Yes [id number] 1g Take 1 Univers 1 gram 1-24 tablet by ity of tablet 00:00: mouth 00 before Medical meals and Branch at bedtime. pantoprazol 3-0 Yes [id number] 40mg Take 1 [facility] e 40 mg EC 1-24 tablet by ity of tablet 00:00: mouth in [place] 00 the Medical morning Branch and 1 tablet in the evening. SUMAtriptan 3-0 Yes [id number] 50mg Take 1 [facility] 50 mg 1-24 tablet by ity of tablet 00:00: mouth as [place] 00 needed for Medical Migraine. Branch May repeat dose after >=2 hours, max dose 200mg in 24 hours. polyethylen 2023-0 Yes [id number] 17g Take 1 Univers e glycol 1-24 Packet by ity of 3350 17 00:00: mouth in [place] gram powder 00 the Medical morning Branch and 1 Packet in the evening. lactulose 2023-0 Yes [id number] 30mL Take 30 mL Univers 10 gram/15 1-24 by mouth ity o f mL solution 00:00: in the morning Medical and 30 mL Branch in the evening. ondansetron 2023-0 Yes [id number] 4mg Take 1 [facility] 4 mg 1-24 tablet by ity of disintegrat 00:00: mouth [place] ing tablet 00 every 8 Medica l (eight) Branch hours as needed for Nausea and Vomiting (N/V). sucralfate 2023-0 Yes [id number] 1g Take 1 Univers 1 gram 1-24 tablet by ity of tablet 00:00: mouth [place] 00 before Medical meals and Branch at bedtime. pantoprazol 2023-0 Yes [id number] 40mg Take 1 Univers e 40 mg EC 1-24 tablet by ity of tablet 00:00: mouth in [place] 00 the Medical morning Branch and 1 tablet in the evening. SUMAtriptan 2023-0 Yes [id number] 50mg Take 1 [facility] 50 mg 1-24 tablet by ity of tablet 00:00: mouth as [place] 00 needed for Medical Migraine. Branch May repeat dose after >=2 hours, max dose 200mg in 24 hours. polyethylen 2023-0 Yes [id number] 17g Take 1 Univers e glycol 1-24 Packet by ity of 3350 17 00:00: mouth in [place] gram powder 00 the Medical morning Branch and 1 Packet in the evening. lactulose 2023-0 Yes [id number] 30mL Take 30 mL Univers 10 gram/15 1-24 by mouth ity o f mL solution 00:00: [facility] and 30 mL Branch in the evening. ondansetron 3-0 Yes [id number] 4mg Take 1 Univers 4 mg 1-24 tablet by ity of disintegrat 00:00: mouth [place] ing tablet 00 every 8 Medica l (eight) Branch hours as needed for Nausea and Vomiting (N/V). sucralfate 2023-0 Yes [id number] 1g Take 1 Univers 1 gram 1-24 tablet by ity of tablet 00:00: mouth [place] 00 before Medical meals and Branch at bedtime. pantoprazol 2023-0 Yes [id number] 40mg Take 1 Univers e 40 mg EC 1-24 tablet by ity of tablet 00:00: mouth in [place] 00 the Medical morning Branch and 1 tablet in the evening. SUMAtriptan 2023-0 Yes [id number] 50mg Take 1 Univers 50 mg 1-24 tablet by ity of tablet 00:00: mouth as [place] 00 needed for Medical Migraine. Branch May repeat dose after >=2 hours, max dose 200mg in 24 hours. polyethylen 2023-0 Yes [id number] 17g Take 1 Univers e glycol 1-24 Packet by ity of 3350 17 00:00: mouth in [place] gram powder 00 the Medical morning Branch and 1 Packet in the evening. lactulose 2023-0 Yes [id number] 30mL Take 30 mL Univers 10 gram/15 1-24 by mouth ity o f mL solution 00:00: in the [facility] morning Medical and 30 mL Branch in the evening. ondansetron 2023-0 Yes [id number] 4mg Take 1 Univers 4 mg 1-24 tablet by ity of disintegrat 00:00: mouth [place] ing tablet 00 every 8 Medica l (eight) Branch hours as needed for Nausea and Vomiting (N/V). sucralfate 2023-0 Yes [id number] 1g Take 1 Univers 1 gram 1-24 tablet by ity of tablet 00:00: mouth [place] 00 before Medical meals and Branch at bedtime. pantoprazol 2023-0 Yes [id number] 40mg Take 1 Univers e 40 mg EC 1-24 tablet by ity of tablet 00:00: mouth in [place] 00 the Medical morning Branch and 1 tablet in the evening. SUMAtriptan 3-0 Yes [id number] 50mg Take 1 [facility] 50 mg 1-24 tablet by ity of tablet 00:00: mouth as [place] 00 needed for Medical Migraine. Branch May repeat dose after >=2 hours, max dose 200mg in 24 hours. polyethylen 2023-0 Yes [id number] 17g Take 1 Univers e glycol 1-24 Packet by ity of 3350 17 00:00: mouth in [place] gram powder 00 the Medical morning Branch and 1 Packet in the evening. lactulose 2023-0 Yes [id number] 30mL Take 30 mL Univers 10 gram/15 1-24 by mouth ity o f mL solution 00:00: in the [facility] morning Medical and 30 mL Branch in the evening. ondansetron 2023-0 Yes [id number] 4mg Take 1 Univers 4 mg 1-24 tablet by ity of disintegrat 00:00: mouth [place] ing tablet 00 every 8 Medica l (eight) Branch hours as needed for Nausea and Vomiting (N/V). sucralfate 2023-0 Yes [id number] 1g Take 1 Univers 1 gram 1-24 tablet by ity of tablet 00:00: mouth [place] 00 before Medical meals and Branch at bedtime. pantoprazol 2023-0 Yes [id number] 40mg Take 1 Univers e 40 mg EC 1-24 tablet by ity of tablet 00:00: mouth in [place] 00 the Medical morning Branch and 1 tablet in the evening. SUMAtriptan 2022-0 Yes [id number] 50mg Take 1 [facility] 50 mg 1-24 tablet by ity of tablet 00:00: mouth as [place] 00 needed for Medical Migraine. Branch May repeat dose after >=2 hours, max dose 200mg in 24 hours. polyethylen 3-0 Yes [id number] 17g Take 1 Univers e glycol 1-24 Packet by ity of 3350 17 00:00: mouth in [place] gram powder 00 the Medical morning Branch and 1 Packet in the evening. lactulose 3-0 Yes [id number] 30mL Take 30 mL Univers 10 gram/15 1-24 by mouth ity o f mL solution 00:00: in the [facility] morning Medical and 30 mL Branch in the evening. ondansetron 2022-0 Yes [id number] 4mg Take 1 [facility] 4 mg 1-24 tablet by ity of disintegrat 00:00: mouth [place] ing tablet 00 every 8 Medica l (eight) Branch hours as needed for Nausea and Vomiting (N/V). sucralfate 3-0 Yes [id number] 1g Take 1 Univers 1 gram 1-24 tablet by ity of tablet 00:00: mouth [place] 00 before Medical meals and Branch at bedtime. pantoprazol 2022-0 Yes [id number] 40mg Take 1 Univers e 40 mg EC 1-24 tablet by ity of tablet 00:00: mouth in [place] 00 the Medical morning Branch and 1 tablet in the evening. SUMAtriptan 2022-0 Yes [id number] 50mg Take 1 [facility] 50 mg 1-24 tablet by ity of tablet 00:00: mouth as [place] 00 needed for Medical Migraine. Branch May repeat dose after >=2 hours, max dose 200mg in 24 hours. polyethylen 3-0 Yes [id number] 17g Take 1 Univers e glycol 1-24 Packet by ity of 3350 17 00:00: mouth in [place] gram powder 00 the Medical morning Branch and 1 Packet in the evening. lactulose 3-0 Yes [id number] 30mL Take 30 mL Univers 10 gram/15 1-24 by mouth ity o f mL solution 00:00: in the [facility] morning Medical and 30 mL Branch in the evening. ondansetron 2023-0 Yes [id number] 4mg Take 1 Univers 4 mg 1-24 tablet by ity of disintegrat 00:00: mouth [place] ing tablet 00 every 8 Medica l (eight) Branch hours as needed for Nausea and Vomiting (N/V). sucralfate 2023-0 Yes [id number] 1g Take 1 Univers 1 gram 1-24 tablet by ity of tablet 00:00: mouth [place] 00 before Medical meals and Branch at bedtime. pantoprazol 2023-0 Yes [id number] 40mg Take 1 Univers e 40 mg EC 1-24 tablet by ity of tablet 00:00: mouth in [place] 00 the Medical morning Branch and 1 tablet in the evening. SUMAtriptan 2023-0 Yes [id number] 50mg Take 1 [facility] 50 mg 1-24 tablet by ity of tablet 00:00: mouth as [place] 00 needed for Medical Migraine. Branch May repeat dose after >=2 hours, max dose 200mg in 24 hours. polyethylen 2023-0 Yes [id number] 17g Take 1 Univers e glycol 1-24 Packet by ity of 3350 17 00:00: mouth in [place] gram powder 00 the Medical morning Branch and 1 Packet in the evening. lactulose 2023-0 Yes [id number] 30mL Take 30 mL Univers 10 gram/15 1-24 by mouth ity o f mL solution 00:00: in the [facility] morning Medical and 30 mL Branch in the evening. ondansetron 2023-0 Yes [id number] 4mg Take 1 Univers 4 mg 1-24 tablet by ity of disintegrat 00:00: mouth [place] ing tablet 00 every 8 Medica l (eight) Branch hours as needed for Nausea and Vomiting (N/V). sucralfate 2023-0 Yes [id number] 1g Take 1 Univers 1 gram 1-24 tablet by ity of tablet 00:00: mouth [place] 00 before Medical meals and Branch at bedtime. pantoprazol 2023-0 Yes [id number] 40mg Take 1 Univers e 40 mg EC 1-24 tablet by ity of tablet 00:00: mouth in [place] 00 the Medical morning Branch and 1 tablet in the evening. SUMAtriptan 2023-0 Yes [id number] 50mg Take 1 [facility] 50 mg 1-24 tablet by ity of tablet 00:00: mouth as 00 needed for Medical Migraine. Branch May repeat dose after >=2 hours, max dose 200mg in 24 hours. polyethylen 2023-0 Yes [id number] 17g Take 1 Univers e glycol 1-24 Packet by ity of 3350 17 00:00: mouth in [place] gram powder 00 the Medical morning Branch and 1 Packet in the evening. lactulose 2023-0 Yes [id number] 30mL Take 30 mL [facility] 10 gram/15 1-24 by mouth ity o f mL solution 00:00: in the morning Medical and 30 mL Branch in the evening. ondansetron 2023-0 Yes [id number] 4mg Take 1 [facility] 4 mg 1-24 tablet by ity of disintegrat 00:00: mouth [place] ing tablet 00 every 8 Medica l (eight) Branch hours as needed for Nausea and Vomiting (N/V). sucralfate 2023-0 Yes [id number] 1g Take 1 [facility] 1 gram 1-24 tablet by ity of tablet 00:00: mouth 00 before Medical meals and Branch at bedtime. pantoprazol 2023-0 Yes [id number] 40mg Take 1 Univers e 40 mg EC 1-24 tablet by ity of tablet 00:00: mouth in [place] 00 the Medical morning Branch and 1 tablet in the evening. SUMAtriptan 2023-0 Yes [id number] 50mg Take 1 [facility] 50 mg 1-24 tablet by ity of tablet 00:00: mouth as 00 needed for Medical Migraine. Branch May repeat dose after >=2 hours, max dose 200mg in 24 hours. polyethylen 2023-0 Yes [id number] 17g Take 1 [facility] e glycol 1-24 Packet by ity of 3350 17 00:00: mouth in [place] gram powder 00 the Medical morning Branch and 1 Packet in the evening. lactulose 2023-0 Yes [id number] 30mL Take 30 mL [facility] 10 gram/15 1-24 by mouth ity o f mL solution 00:00: in the morning Medical and 30 mL Branch in the evening. ondansetron 2023-0 Yes [id number] 4mg Take 1 [facility] 4 mg 1-24 tablet by ity of disintegrat 00:00: mouth [place] ing tablet 00 every 8 Medica l (eight) Branch hours as needed for Nausea and Vomiting (N/V). sucralfate 2023-0 Yes [id number] 1g Take 1 [facility] 1 gram 1-24 tablet by ity of tablet 00:00: mouth [place] 00 before Medical meals and Branch at bedtime. pantoprazol 2023-0 Yes [id number] 40mg Take 1 Univers e 40 mg EC 1-24 tablet by ity of tablet 00:00: mouth in [place] 00 the Medical morning Branch and 1 tablet in the evening. SUMAtriptan 2023-0 Yes [id number] 50mg Take 1 [facility] 50 mg 1-24 tablet by ity of tablet 00:00: mouth as [place] 00 needed for Medical Migraine. Branch May repeat dose after >=2 hours, max dose 200mg in 24 hours. polyethylen 2023-0 Yes [id number] 17g Take 1 [facility] e glycol 1-24 Packet by ity of 3350 17 00:00: mouth in [place] gram powder 00 the Medical morning Branch and 1 Packet in the evening. lactulose 3-0 Yes [id number] 30mL Take 30 mL [facility] 10 gram/15 1-24 by mouth ity o f mL solution 00:00: [facility] Medical and 30 mL Branch in the evening. ondansetron 3-0 Yes [id number] 4mg Take 1 [facility] 4 mg 1-24 tablet by ity of disintegrat 00:00: mouth [place] ing tablet 00 every 8 Medica l (eight) Branch hours as needed for Nausea and Vomiting (N/V). sucralfate 2023-0 Yes [id number] 1g Take 1 [facility] 1 gram 1-24 tablet by ity of tablet 00:00: mouth [place] 00 before Medical meals and Branch at bedtime. pantoprazol 2023-0 Yes [id number] 40mg Take 1 Univers e 40 mg EC 1-24 tablet by ity of tablet 00:00: mouth in [place] 00 the Medical morning Branch and 1 tablet in the evening. SUMAtriptan 2023-0 Yes [id number] 50mg Take 1 [facility] 50 mg 1-24 tablet by ity of tablet 00:00: mouth as [place] 00 needed for Medical Migraine. Branch May repeat dose after >=2 hours, max dose 200mg in 24 hours. polyethylen 2023-0 Yes [id number] 17g Take 1 Univers e glycol 1-24 Packet by ity of 3350 17 00:00: mouth in [place] gram powder 00 the Medical morning Branch and 1 Packet in the evening. lactulose 2023-0 Yes [id number] 30mL Take 30 mL [facility] 10 gram/15 1-24 by mouth ity o f mL solution 00:00: in the morning Medical and 30 mL Branch in the evening. ondansetron 2023-0 Yes [id number] 4mg Take 1 [facility] 4 mg 1-24 tablet by ity of disintegrat 00:00: mouth [place] ing tablet 00 every 8 Medica l (eight) Branch hours as needed for Nausea and Vomiting (N/V). sucralfate 2023-0 Yes [id number] 1g Take 1 [facility] 1 gram 1-24 tablet by ity of tablet 00:00: mouth [place] 00 before Medical meals and Branch at bedtime. pantoprazol 2023-0 Yes [id number] 40mg Take 1 Univers e 40 mg EC 1-24 tablet by ity of tablet 00:00: mouth in [place] 00 the Medical morning Branch and 1 tablet in the evening. SUMAtriptan 3-0 Yes [id number] 50mg Take 1 [facility] 50 mg 1-24 tablet by ity of tablet 00:00: mouth as [place] [id number] needed for Medical Migraine. Branch May repeat dose after >=2 hours, max dose 200mg in 24 hours. polyethylen 3-0 Yes [id number] 17g Take 1 [facility] e glycol 1-24 Packet by ity of 3350 17 00:00: mouth in [place] gram powder 00 the Medical morning Branch and 1 Packet in the evening. lactulose 2023-0 Yes [id number] 30mL Take 30 mL [facility] 10 gram/15 1-24 by mouth ity o f mL solution 00:00: in the [facility] morning Medical and 30 mL Branch in the evening. ondansetron 2023-0 Yes [id number] 4mg Take 1 [facility] 4 mg 1-24 tablet by [facility] of disintegrat 00:00: mouth [place] ing tablet 00 every 8 Medica l (eight) Branch hours as needed for Nausea and Vomiting (N/V). sucralfate 2023-0 Yes [id number] 1g Take 1 [facility] 1 gram 1-24 tablet by [facility] of tablet 00:00: mouth [place] 00 before Medical meals and Branch at bedtime. pantoprazol 2023-0 Yes [id number] 40mg Take 1 [facility] e 40 mg EC 1-24 tablet by ity of tablet 00:00: mouth in [place] 00 the Medical morning Branch and 1 tablet in the evening. SUMAtriptan 2023-0 Yes [id number] 50mg Take 1 [facility] 50 mg 1-24 tablet by it[facility] of tablet 00:00: mouth as [place] 00 needed for Medical Migraine. Branch May repeat dose after >=2 hours, max dose 200mg in 24 hours. polyethylen 2023-0 Yes [id number] 17g Take 1 [facility] e glycol 1-24 Packet by ity of 3350 17 00:00: mouth in [place] gram powder 00 the Medical morning Branch and 1 Packet in the evening. lactulose 2023-0 Yes [id number] 30mL Take 30 mL [facility] 10 gram/15 1-24 by mouth ity o f mL solution 00:00: in the [facility] morning Medical and 30 mL Branch in the evening. ondansetron 3-0 Yes [id number] 4mg Take 1 [facility] 4 mg 1-24 tablet by it[facility] of disintegrat 00:00: mouth [place] ing tablet 00 every 8 Medica l (eight) Branch hours as needed for Nausea and Vomiting (N/V). sucralfate 2023-0 Yes [id number] 1g Take 1 [facility] 1 gram 1-24 tablet by ity of tablet 00:00: mouth [place] 00 before Medical meals and Branch at bedtime. pantoprazol 2023-0 Yes [id number] 40mg Take 1 [facility] e 40 mg EC 1-24 tablet by ity of tablet 00:00: mouth in [place] 00 the Medical morning Branch and 1 tablet in the evening. SUMAtriptan 2023-0 Yes [id number] 50mg Take 1 [facility] 50 mg 1-24 tablet by ity of tablet 00:00: mouth as [place] 00 needed for Medical Migraine. Branch May repeat dose after >=2 hours, max dose 200mg in 24 hours. polyethylen 2023-0 Yes [id number] 17g Take 1 [facility] e glycol 1-24 Packet by ity of 3350 17 00:00: mouth in [place] gram powder 00 the Medical morning Branch and 1 Packet in the evening. lactulose 2023-0 Yes [id number] 30mL Take 30 mL [facility] 10 gram/15 1-24 by mouth it[facility] o f mL [place] 00:00: [place] morning Medical and 30 mL Branch in the evening. ondansetron 2023-0 Yes [id number] 4mg Take 1 [facility] 4 mg 1-24 tablet by ity of disintegrat 00:00: mouth [place] ing tablet 00 every 8 Medica l (eight) Branch hours as needed for Nausea and Vomiting (N/V). sucralfate 2023-0 Yes [id number] 1g Take 1 [facility] 1 gram 1-24 tablet by ity of tablet 00:00: mouth [place] 00 before Medical meals and Branch at bedtime. pantoprazol 2023-0 Yes [id number] 40mg Take 1 [facility] e 40 mg EC 1-24 tablet by ity of tablet 00:00: mouth in [place] 00 the Medical morning Branch and 1 tablet in the evening. SUMAtriptan 2023-0 Yes [id number] 50mg Take 1 [facility] 50 mg 1-24 tablet by ity of tablet 00:00: mouth as [place] 00 needed for Medical Migraine. Branch May repeat dose after >=2 hours, max dose 200mg in 24 hours. polyethylen 2023-0 Yes [id number] 17g Take 1 [facility] e glycol 1-24 Packet by ity of 3350 17 00:00: mouth in [place] gram powder 00 the Medical morning Branch and 1 Packet in the evening. lactulose 2023-0 Yes [id number] 30mL Take 30 mL [facility] 10 gram/15 1-24 by mouth ity o f mL solution 00:00: in the [facility] s 00 morning Medical and 30 mL Branch in the evening. ondansetron 2023-0 Yes [id number] 4mg Take 1 [facility] 4 mg 1-24 tablet by ity of disintegrat 00:00: mouth [place] ing tablet 00 every 8 Medica l (eight) Branch hours as needed for Nausea and Vomiting (N/V). sucralfate 2023-0 Yes [id number] 1g Take 1 [facility] 1 gram 1-24 tablet by ity of tablet 00:00: mouth [place] 00 before Medical meals and Branch at bedtime. pantoprazol 2023-0 Yes [id number] 40mg Take 1 [facility] e 40 mg EC 1-24 tablet by ity of tablet 00:00: mouth in [place] 00 the Medical morning Branch and 1 tablet in the evening. SUMAtriptan 2023-0 Yes [id number] 50mg Take 1 [facility] 50 mg 1-24 tablet by ity of tablet 00:00: mouth as 00 needed for Medical Migraine. Branch May repeat dose after >=2 hours, max dose 200mg in 24 hours. polyethylen 2023-0 Yes [id number] 17g Take 1 [facility] e glycol 1-24 Packet by ity of 3350 17 00:00: mouth in [place] gram powder 00 the Medical morning Branch and 1 Packet in the evening. lactulose 2023-0 Yes [id number] 30mL Take 30 mL [facility] 10 gram/15 1-24 by mouth ity o f mL solution 00:00: in the morning Medical and 30 mL Branch in the evening. ondansetron 2023-0 Yes [id number] 4mg Take 1 [facility] 4 mg 1-24 tablet by ity of disintegrat 00:00: mouth [place] ing tablet 00 every 8 Medica l (eight) Branch hours as needed for Nausea and Vomiting (N/V). sucralfate 2023-0 Yes [id number] 1g Take 1 [facility] 1 gram 1-24 tablet by ity of tablet 00:00: mouth 00 before Medical meals and Branch at bedtime. pantoprazol 2023-0 Yes [id number] 40mg Take 1 [facility] e 40 mg EC 1-24 tablet by ity of tablet 00:00: mouth in [place] 00 the Medical morning Branch and 1 tablet in the evening. SUMAtriptan 2023-0 Yes [id number] 50mg Take 1 [facility] 50 mg 1-24 tablet by ity of tablet 00:00: mouth as 00 needed for Medical Migraine. Branch May repeat dose after >=2 hours, max dose 200mg in 24 hours. polyethylen 2023-0 Yes [id number] 17g Take 1 [facility] e glycol 1-24 Packet by ity of 3350 17 00:00: mouth in [place] gram powder 00 the Medical morning Branch and 1 Packet in the evening. lactulose 2023-0 Yes [id number] 30mL Take 30 mL [facility] 10 gram/15 1-24 by mouth ity o f mL solution 00:00: in the morning Medical and 30 mL Branch in the evening. ondansetron 2023-0 Yes [id number] 4mg Take 1 [facility] 4 mg 1-24 tablet by ity of disintegrat 00:00: mouth [place] ing tablet 00 every 8 Medica l (eight) Branch hours as needed for Nausea and Vomiting (N/V). sucralfate 2023-0 Yes [id number] 1g Take 1 [facility] 1 gram 1-24 tablet by ity of tablet 00:00: mouth [place] 00 before Medical meals and Branch at bedtime. pantoprazol 2023-0 Yes [id number] 40mg Take 1 [facility] e 40 mg EC 1-24 tablet by ity of tablet 00:00: mouth in [place] 00 the Medical morning Branch and 1 tablet in the evening. SUMAtriptan 2023-0 Yes [id number] 50mg Take 1 [facility] 50 mg 1-24 tablet by ity of tablet 00:00: mouth as [place] 00 needed for Medical Migraine. Branch May repeat dose after >=2 hours, max dose 200mg in 24 hours. polyethylen 2023-0 Yes [id number] 17g Take 1 [facility] e glycol 1-24 Packet by ity of 3350 17 00:00: mouth in [place] gram powder 00 the Medical morning Branch and 1 Packet in the evening. lactulose 3-0 Yes [id number] 30mL Take 30 mL [facility] 10 gram/15 1-24 by mouth ity o f mL solution 00:00: [place] morning Medical and 30 mL Branch in the evening. ondansetron 3-0 Yes [id number] 4mg Take 1 [facility] 4 mg 1-24 tablet by ity of disintegrat 00:00: mouth [place] ing tablet 00 every 8 Medica l (eight) Branch hours as needed for Nausea and Vomiting (N/V). sucralfate 3-0 Yes [id number] 1g Take 1 [facility] 1 gram 1-24 tablet by ity of tablet 00:00: mouth [place] 00 before Medical meals and Branch at bedtime. pantoprazol 2023-0 Yes [id number] 40mg Take 1 [facility] e 40 mg EC 1-24 tablet by ity of tablet 00:00: mouth in [place] 00 the Medical morning Branch and 1 tablet in the evening. SUMAtriptan 2023-0 Yes [id number] 50mg Take 1 [facility] 50 mg 1-24 tablet by ity of tablet 00:00: mouth as [place] 00 needed for Medical Migraine. Branch May repeat dose after >=2 hours, max dose 200mg in 24 hours. polyethylen 2023-0 Yes [id number] 17g Take 1 [facility] e glycol 1-24 Packet by ity of 3350 17 00:00: mouth in [place] gram powder 00 the Medical morning Branch and 1 Packet in the evening. lactulose 2023-0 Yes [id number] 30mL Take 30 mL [facility] 10 gram/15 1-24 by mouth ity o f mL solution 00:00: in the morning Medical and 30 mL Branch in the evening. ondansetron 2023-0 Yes [id number] 4mg Take 1 [facility] 4 mg 1-24 tablet by ity of disintegrat 00:00: mouth [place] ing tablet 00 every 8 Medica l (eight) Branch hours as needed for Nausea and Vomiting (N/V). sucralfate 2023-0 Yes [id number] 1g Take 1 [facility] 1 gram 1-24 tablet by ity of tablet 00:00: mouth 00 before Medical meals and Branch at bedtime. pantoprazol 3-0 Yes [id number] 40mg Take 1 [facility] e 40 mg EC 1-24 tablet by ity of tablet 00:00: mouth in [place] 00 the Medical morning Branch and 1 tablet in the evening. SUMAtriptan 3-0 Yes [id number] 50mg Take 1 [facility] 50 mg 1-24 tablet by ity of tablet 00:00: mouth as 00 needed for Medical Migraine. Branch May repeat dose after >=2 hours, max dose 200mg in 24 hours. polyethylen 3-0 Yes [id number] 17g Take 1 [facility] e glycol 1-24 Packet by ity of 3350 17 00:00: mouth in [place] gram powder 00 the Medical morning Branch and 1 Packet in the evening. lactulose 2023-0 Yes [id number] 30mL Take 30 mL [facility] 10 gram/15 1-24 by mouth ity o f mL solution 00:00: in the morning Medical and 30 mL Branch in the evening. ondansetron 2023-0 Yes [id number] 4mg Take 1 [facility] 4 mg 1-24 tablet by ity of disintegrat 00:00: mouth [place] ing tablet 00 every 8 Medica l (eight) Branch hours as needed for Nausea and Vomiting (N/V). sucralfate 2023-0 Yes [id number] 1g Take 1 [facility] 1 gram 1-24 tablet by ity of tablet 00:00: mouth [place] 00 before Medical meals and Branch at bedtime. pantoprazol 2023-0 Yes [id number] 40mg Take 1 [facility] e 40 mg EC 1-24 tablet by ity of tablet 00:00: mouth in [place] 00 the Medical morning Branch and 1 tablet in the evening. SUMAtriptan 2023-0 Yes [id number] 50mg Take 1 [facility] 50 mg 1-24 tablet by ity of tablet 00:00: mouth as [place] 00 needed for Medical Migraine. Branch May repeat dose after >=2 hours, max dose 200mg in 24 hours. polyethylen 2023-0 Yes [id number] 17g Take 1 [facility] e glycol 1-24 Packet by ity of 3350 17 00:00: mouth in [place] gram powder 00 the Medical morning Branch and 1 Packet in the evening. lactulose 2023-0 Yes [id number] 30mL Take 30 mL [facility] 10 gram/15 1-24 by mouth ity o f mL solution 00:00: in the [facility] morning Medical and 30 mL Branch in the evening. ondansetron 3-0 Yes [id number] 4mg Take 1 [facility] 4 mg 1-24 tablet by ity of disintegrat 00:00: mouth [place] ing tablet 00 every 8 Medica l (eight) Branch hours as needed for Nausea and Vomiting (N/V). sucralfate 3-0 Yes [id number] 1g Take 1 [facility] 1 gram 1-24 tablet by ity of tablet 00:00: mouth [place] 00 before Medical meals and Branch at bedtime. pantoprazol 3-0 Yes [id number] 40mg Take 1 [facility] e 40 mg EC 1-24 tablet by ity of tablet 00:00: mouth in [place] 00 the Medical morning Branch and 1 tablet in the evening. SUMAtriptan 3-0 Yes [id number] 50mg Take 1 [facility] 50 mg 1-24 tablet by ity of tablet 00:00: mouth as [place] 00 needed for Medical Migraine. Branch May repeat dose after >=2 hours, max dose 200mg in 24 hours. polyethylen 2023-0 Yes [id number] 17g Take 1 [facility] e glycol 1-24 Packet by ity of 3350 17 00:00: mouth in [place] gram powder 00 the Medical morning Branch and 1 Packet in the evening. lactulose 2023-0 Yes [id number] 30mL Take 30 mL [facility] 10 gram/15 1-24 by mouth ity o f mL solution 00:00: in the [facility] morning Medical and 30 mL Branch in the evening. ondansetron 2023-0 Yes [id number] 4mg Take 1 [facility] 4 mg 1-24 tablet by ity of disintegrat 00:00: mouth [place] ing tablet 00 every 8 Medica l (eight) Branch hours as needed for Nausea and Vomiting (N/V). sucralfate 2023-0 Yes [id number] 1g Take 1 [facility] 1 gram 1-24 tablet by ity of tablet 00:00: mouth [place] 00 before Medical meals and Branch at bedtime. pantoprazol 2023-0 Yes [id number] 40mg Take 1 [facility] e 40 mg EC 1-24 tablet by ity of tablet 00:00: mouth in 00 the Medical morning Branch and 1 tablet in the evening. SUMAtriptan 2023-0 Yes [id number] 50mg Take 1 [facility] 50 mg 1-24 tablet by ity of tablet 00:00: mouth as 00 needed for Medical Migraine. Branch May repeat dose after >=2 hours, max dose 200mg in 24 hours. polyethylen 2023-0 Yes [id number] 17g Take 1 [facility] e glycol 1-24 Packet by ity of 3350 17 00:00: mouth in [place] gram powder 00 the Medical morning Branch and 1 Packet in the evening. lactulose 2023-0 Yes [id number] 30mL Take 30 mL [facility] 10 gram/15 1-24 by mouth ity o f mL solution 00:00: [place] the [place] morning Medical and 30 mL Branch in the evening. ondansetron 2023-0 Yes [id number] 4mg Take 1 [facility] 4 mg 1-24 tablet by ity of disintegrat 00:00: mouth [place] ing tablet 00 every 8 Medica l (eight) Branch hours as needed for Nausea and Vomiting (N/V). sucralfate 2023-0 Yes [id number] 1g Take 1 [facility] 1 gram 1-24 tablet by ity of tablet 00:00: mouth [place] 00 before Medical meals and Branch at bedtime. pantoprazol 2023-0 Yes [id number] 40mg Take 1 [facility] e 40 mg EC 1-24 tablet by ity of tablet 00:00: mouth in [place] 00 the Medical morning Branch and 1 tablet in the evening. SUMAtriptan 2023-0 Yes [id number] 50mg Take 1 [facility] 50 mg 1-24 tablet by ity of tablet 00:00: mouth as 00 needed for Medical Migraine. Branch May repeat dose after >=2 hours, max dose 200mg in 24 hours. polyethylen 2023-0 Yes [id number] 17g Take 1 [facility] e glycol 1-24 Packet by ity of 3350 17 00:00: mouth in [place] gram powder 00 the Medical morning Branch and 1 Packet in the evening. lactulose 2023-0 Yes [id number] 30mL Take 30 mL [facility] 10 gram/15 1-24 by mouth ity o f mL solution 00:00: in the morning Medical and 30 mL Branch in the evening. ondansetron 2023-0 Yes [id number] 4mg Take 1 [facility] 4 mg 1-24 tablet by ity of disintegrat 00:00: mouth [place] ing tablet 00 every 8 Medica l (eight) Branch hours as needed for Nausea and Vomiting (N/V). sucralfate 2023-0 Yes [id number] 1g Take 1 [facility] 1 gram 1-24 tablet by ity of tablet 00:00: mouth 00 before Medical meals and Branch at bedtime. pantoprazol 2023-0 Yes [id number] 40mg Take 1 [facility] e 40 mg EC 1-24 tablet by ity of tablet 00:00: mouth in [place] the Medical morning Branch and 1 tablet in the evening. SUMAtriptan 2023-0 Yes [id number] 50mg Take 1 [facility] 50 mg 1-24 tablet by ity of tablet 00:00: mouth as 00 needed for Medical Migraine. Branch May repeat dose after >=2 hours, max dose 200mg in 24 hours. polyethylen 2023-0 Yes [id number] 17g Take 1 [facility] e glycol 1-24 Packet by ity of 3350 17 00:00: mouth in [place] gram powder 00 the Medical morning Branch and 1 Packet in the evening. lactulose 2023-0 Yes [id number] 30mL Take 30 mL [facility] 10 gram/15 1-24 by mouth ity o f mL solution 00:00: in the morning Medical and 30 mL Branch in the evening. ondansetron 2023-0 Yes [id number] 4mg Take 1 [facility] 4 mg 1-24 tablet by ity of disintegrat 00:00: mouth [place] ing tablet 00 every 8 Medica l (eight) Branch hours as needed for Nausea and Vomiting (N/V). sucralfate 2023-0 Yes [id number] 1g Take 1 [facility] 1 gram 1-24 tablet by ity of tablet 00:00: mouth [place] 00 before Medical meals and Branch at bedtime. pantoprazol 2023-0 Yes [id number] 40mg Take 1 [facility] e 40 mg EC 1-24 tablet by ity of tablet 00:00: mouth in [place] 00 the Medical morning Branch and 1 tablet in the evening. SUMAtriptan 2023-0 Yes [id number] 50mg Take 1 [facility] 50 mg 1-24 tablet by ity of tablet 00:00: mouth as [place] 00 needed for Medical Migraine. Branch May repeat dose after >=2 hours, max dose 200mg in 24 hours. polyethylen 2023-0 Yes [id number] 17g Take 1 [facility] e glycol 1-24 Packet by ity of 3350 17 00:00: mouth in [place] gram powder 00 the Medical morning Branch and 1 Packet in the evening. lactulose 3-0 Yes [id number] 30mL Take 30 mL [facility] 10 gram/15 1-24 by mouth ity o f mL solution 00:00: [facility] morning Medical and 30 mL Branch in the evening. ondansetron 3-0 Yes [id number] 4mg Take 1 [facility] 4 mg 1-24 tablet by ity of disintegrat 00:00: mouth [place] ing tablet 00 every 8 Medica l (eight) Branch hours as needed for Nausea and Vomiting (N/V). sucralfate 3-0 Yes [id number] 1g Take 1 [facility] 1 gram 1-24 tablet by ity of tablet 00:00: mouth [place] 00 before Medical meals and Branch at bedtime. pantoprazol 3-0 Yes [id number] 40mg Take 1 [facility] e 40 mg EC 1-24 tablet by ity of tablet 00:00: mouth in [place] 00 the Medical morning Branch and 1 tablet in the evening. SUMAtriptan 3-0 Yes [id number] 50mg Take 1 [facility] 50 mg 1-24 tablet by ity of tablet 00:00: mouth as [place] 00 needed for Medical Migraine. Branch May repeat dose after >=2 hours, max dose 200mg in 24 hours. polyethylen 2023-0 Yes [id number] 17g Take 1 [facility] e glycol 1-24 Packet by ity of 3350 17 00:00: mouth in [place] gram powder 00 the Medical morning Branch and 1 Packet in the evening. lactulose 2023-0 Yes [id number] 30mL Take 30 mL [facility] 10 gram/15 1-24 by mouth ity o f mL solution 00:00: in the morning Medical and 30 mL Branch in the evening. ondansetron 2023-0 Yes [id number] 4mg Take 1 [facility] 4 mg 1-24 tablet by ity of disintegrat 00:00: mouth [place] ing tablet 00 every 8 Medica l (eight) Branch hours as needed for Nausea and Vomiting (N/V). sucralfate 2023-0 Yes [id number] 1g Take 1 [facility] 1 gram 1-24 tablet by ity of tablet 00:00: mouth [place] 00 before Medical meals and Branch at bedtime. pantoprazol 2023-0 Yes [id number] 40mg Take 1 [facility] e 40 mg EC 1-24 tablet by ity of tablet 00:00: mouth in [place] 00 the Medical morning Branch and 1 tablet in the evening. SUMAtriptan 2023-0 Yes [id number] 50mg Take 1 [facility] 50 mg 1-24 tablet by ity of tablet 00:00: mouth as [place] [address] needed for Medical Migraine. Branch May repeat dose after >=2 hours, max dose 200mg in 24 hours. polyethylen 2023-0 Yes [id number] 17g Take 1 [facility] e glycol 1-24 Packet by ity of 3350 17 00:00: mouth in [place] gram powder 00 the Medical morning Branch and 1 Packet in the evening. lactulose 2023-0 Yes [id number] 30mL Take 30 mL [facility] 10 gram/15 1-24 by mouth ity o f mL solution 00:00: in the [facility] morning Medical and 30 mL Branch in the evening. ondansetron 2023-0 Yes [id number] 4mg Take 1 [facility] 4 mg 1-24 tablet by ity of disintegrat 00:00: mouth [place] ing tablet 00 every 8 Medica l (eight) Branch hours as needed for Nausea and Vomiting (N/V). sucralfate 2023-0 Yes [id number] 1g Take 1 [facility] 1 gram 1-24 tablet by ity of tablet 00:00: mouth [place] 00 before Medical meals and Branch at bedtime. pantoprazol 2023-0 Yes [id number] 40mg Take 1 [facility] e 40 mg EC 1-24 tablet by ity of tablet 00:00: mouth in [place] 00 the Medical morning Branch and 1 tablet in the evening. SUMAtriptan 2023-0 Yes [id number] 50mg Take 1 [facility] 50 mg 1-24 tablet by ity of tablet 00:00: mouth as [place] 00 needed for Medical Migraine. Branch May repeat dose after >=2 hours, max dose 200mg in 24 hours. polyethylen 2023-0 Yes [id number] 17g Take 1 [facility] e glycol 1-24 Packet by ity of 3350 17 00:00: mouth in [place] gram powder 00 the Medical morning Branch and 1 Packet in the evening. lactulose 2023-0 Yes [id number] 30mL Take 30 mL [facility] 10 gram/15 1-24 by mouth ity o f mL solution 00:00: in the [facility] morning Medical and 30 mL Branch in the evening. ondansetron 3-0 Yes [id number] 4mg Take 1 [facility] 4 mg 1-24 tablet by ity of disintegrat 00:00: mouth [place] ing tablet 00 every 8 Medica l (eight) Branch hours as needed for Nausea and Vomiting (N/V). sucralfate 3-0 Yes [id number] 1g Take 1 [facility] 1 gram 1-24 tablet by ity of tablet 00:00: mouth [place] 00 before Medical meals and Branch at bedtime. pantoprazol 3-0 Yes [id number] 40mg Take 1 [facility] e 40 mg EC 1-24 tablet by ity of tablet 00:00: mouth in [place] 00 the Medical morning Branch and 1 tablet in the evening. SUMAtriptan 3-0 Yes [id number] 50mg Take 1 [facility] 50 mg 1-24 tablet by ity of tablet 00:00: mouth as [place] 00 needed for Medical Migraine. Branch May repeat dose after >=2 hours, max dose 200mg in 24 hours. polyethylen 2023-0 Yes [id number] 17g Take 1 [facility] e glycol 1-24 Packet by ity of 3350 17 00:00: mouth in [place] gram powder 00 the Medical morning Branch and 1 Packet in the evening. lactulose 2023-0 Yes [id number] 30mL Take 30 mL [facility] 10 gram/15 1-24 by mouth ity o f mL solution 00:00: in the [facility] morning Medical and 30 mL Branch in the evening. ondansetron 2023-0 Yes [id number] 4mg Take 1 [facility] 4 mg 1-24 tablet by ity of disintegrat 00:00: mouth [place] ing tablet 00 every 8 Medica l (eight) Branch hours as needed for Nausea and Vomiting (N/V). sucralfate 2023-0 Yes [id number] 1g Take 1 [facility] 1 gram 1-24 tablet by ity of tablet 00:00: mouth [place] 00 before Medical meals and Branch at bedtime. pantoprazol 2023-0 Yes [id number] 40mg Take 1 [facility] e 40 mg EC 1-24 tablet by ity of tablet 00:00: mouth in [place] 00 the Medical morning Branch and 1 tablet in the evening. SUMAtriptan 2023-0 Yes [id number] 50mg Take 1 [facility] 50 mg 1-24 tablet by ity of tablet 00:00: mouth as [place] 00 needed for Medical Migraine. Branch May repeat dose after >=2 hours, max dose 200mg in 24 hours. polyethylen 3-0 Yes [id number] 17g Take 1 [facility] e glycol 1-24 Packet by ity of 3350 17 00:00: mouth in [place] gram powder 00 the Medical morning Branch and 1 Packet in the evening. lactulose 3-0 Yes [id number] 30mL Take 30 mL [facility] 10 gram/15 1-24 by mouth ity o f mL solution 00:00: in the [facility] s 00 morning Medical and 30 mL Branch in the evening. ondansetron 3-0 Yes [id number] 4mg Take 1 [facility] 4 mg 1-24 tablet by ity of disintegrat 00:00: mouth [place] ing tablet 00 every 8 Medica l (eight) Branch hours as needed for Nausea and Vomiting (N/V). sucralfate 2023-0 Yes [id number] 1g Take 1 [facility] 1 gram 1-24 tablet by ity of tablet 00:00: mouth [place] 00 before Medical meals and Branch at bedtime. pantoprazol 2023-0 Yes [id number] 40mg Take 1 [facility] e 40 mg EC 1-24 tablet by ity of tablet 00:00: mouth in [place] 00 the Medical morning Branch and 1 tablet in the evening. SUMAtriptan 2023-0 Yes [id number] 50mg Take 1 [facility] 50 mg 1-24 tablet by ity of tablet 00:00: mouth as 00 needed for Medical Migraine. Branch May repeat dose after >=2 hours, max dose 200mg in 24 hours. polyethylen 2023-0 Yes [id number] 17g Take 1 [facility] e glycol 1-24 Packet by ity of 3350 17 00:00: mouth in [place] gram powder 00 the Medical morning Branch and 1 Packet in the evening. lactulose 2023-0 Yes [id number] 30mL Take 30 mL [facility] 10 gram/15 1-24 by mouth ity o f mL solution 00:00: in the morning Medical and 30 mL Branch in the evening. ondansetron 2023-0 Yes [id number] 4mg Take 1 [facility] 4 mg 1-24 tablet by ity of disintegrat 00:00: mouth [place] ing tablet 00 every 8 Medica l (eight) Branch hours as needed for Nausea and Vomiting (N/V). sucralfate 2023-0 Yes [id number] 1g Take 1 [facility] 1 gram 1-24 tablet by ity of tablet 00:00: mouth 00 before Medical meals and Branch at bedtime. pantoprazol 2023-0 Yes [id number] 40mg Take 1 [facility] e 40 mg EC 1-24 tablet by ity of tablet 00:00: mouth in [place] the Medical morning Branch and 1 tablet in the evening. SUMAtriptan 2023-0 Yes [id number] 50mg Take 1 [facility] 50 mg 1-24 tablet by ity of tablet 00:00: mouth as 00 needed for Medical Migraine. Branch May repeat dose after >=2 hours, max dose 200mg in 24 hours. polyethylen 2023-0 Yes [id number] 17g Take 1 [facility] e glycol 1-24 Packet by ity of 3350 17 00:00: mouth in [place] gram powder 00 the Medical morning Branch and 1 Packet in the evening. lactulose 2023-0 Yes [id number] 30mL Take 30 mL [facility] 10 gram/15 1-24 by mouth ity o f mL solution 00:00: in the morning Medical and 30 mL Branch in the evening. ondansetron 2023-0 Yes [id number] 4mg Take 1 [facility] 4 mg 1-24 tablet by ity of disintegrat 00:00: mouth [place] ing tablet 00 every 8 Medica l (eight) Branch hours as needed for Nausea and Vomiting (N/V). sucralfate 2023-0 Yes [id number] 1g Take 1 [facility] 1 gram 1-24 tablet by ity of tablet 00:00: mouth [place] 00 before Medical meals and Branch at bedtime. pantoprazol 2023-0 Yes [id number] 40mg Take 1 [facility] e 40 mg EC 1-24 tablet by ity of tablet 00:00: mouth in [place] 00 the Medical morning Branch and 1 tablet in the evening. SUMAtriptan 2023-0 Yes [id number] 50mg Take 1 [facility] 50 mg 1-24 tablet by ity of tablet 00:00: mouth as [place] 00 needed for Medical Migraine. Branch May repeat dose after >=2 hours, max dose 200mg in 24 hours. polyethylen 2023-0 Yes [id number] 17g Take 1 [facility] e glycol 1-24 Packet by ity of 3350 17 00:00: mouth in [place] gram powder 00 the Medical morning Branch and 1 Packet in the evening. lactulose 3-0 Yes [id number] 30mL Take 30 mL [facility] 10 gram/15 1-24 by mouth ity o f mL [facility] 00:00[facility] and 30 mL Branch in the evening. ondansetron 3-0 Yes [id number] 4mg Take 1 [facility] 4 mg 1-24 tablet by ity of disintegrat 00:00: mouth [place] ing tablet 00 every 8 Medica l (eight) Branch hours as needed for Nausea and Vomiting (N/V). sucralfate 3-0 Yes [id number] 1g Take 1 [facility] 1 gram 1-24 tablet by ity of tablet 00:00: mouth [place] 00 before Medical meals and Branch at bedtime. pantoprazol 3-0 Yes [id number] 40mg Take 1 [facility] e 40 mg EC 1-24 tablet by ity of tablet 00:00: mouth in [place] 00 the Medical morning Branch and 1 tablet in the evening. SUMAtriptan 2023-0 Yes [id number] 50mg Take 1 [facility] 50 mg 1-24 tablet by ity of tablet 00:00: mouth as [place] 00 needed for Medical Migraine. Branch May repeat dose after >=2 hours, max dose 200mg in 24 hours. polyethylen 2023-0 Yes [id number] 17g Take 1 [facility] e glycol 1-24 Packet by ity of 3350 17 00:00: mouth in [place] gram powder 00 the Medical morning Branch and 1 Packet in the evening. lactulose 2023-0 Yes [id number] 30mL Take 30 mL [facility] 10 gram/15 1-24 by mouth ity o f mL solution 00:00: in the morning Medical and 30 mL Branch in the evening. ondansetron 2023-0 Yes [id number] 4mg Take 1 [facility] 4 mg 1-24 tablet by ity of disintegrat 00:00: mouth [place] ing tablet 00 every 8 Medica l (eight) Branch hours as needed for Nausea and Vomiting (N/V). sucralfate 2023-0 Yes [id number] 1g Take 1 [facility] 1 gram 1-24 tablet by ity of tablet 00:00: mouth 00 before Medical meals and Branch at bedtime. pantoprazol 2023-0 Yes [id number] 40mg Take 1 [facility] e 40 mg EC 1-24 tablet by ity of tablet 00:00: mouth in [place] 00 the Medical morning Branch and 1 tablet in the evening. SUMAtriptan 3-0 Yes [id number] 50mg Take 1 [facility] 50 mg 1-24 tablet by ity of tablet 00:00: mouth as 00 needed for Medical Migraine. Branch May repeat dose after >=2 hours, max dose 200mg in 24 hours. polyethylen 2023-0 Yes [id number] 17g Take 1 [facility] e glycol 1-24 Packet by ity of 3350 17 00:00: mouth in [place] gram powder 00 the Medical morning Branch and 1 Packet in the evening. lactulose 2023-0 Yes [id number] 30mL Take 30 mL [facility] 10 gram/15 1-24 by mouth ity o f mL solution 00:00: in the morning Medical and 30 mL Branch in the evening. ondansetron 2023-0 Yes [id number] 4mg Take 1 [facility] 4 mg 1-24 tablet by ity of disintegrat 00:00: mouth [place] ing tablet 00 every 8 Medica l (eight) Branch hours as needed for Nausea and Vomiting (N/V). sucralfate 2023-0 Yes [id number] 1g Take 1 [facility] 1 gram 1-24 tablet by ity of tablet 00:00: mouth [place] 00 before Medical meals and Branch at bedtime. pantoprazol 2023-0 Yes [id number] 40mg Take 1 [facility] e 40 mg EC 1-24 tablet by ity of tablet 00:00: mouth in [place] 00 the Medical morning Branch and 1 tablet in the evening. SUMAtriptan 2023-0 Yes [id number] 50mg Take 1 [facility] 50 mg 1-24 tablet by ity of tablet 00:00: mouth as 00 needed for Medical Migraine. Branch May repeat dose after >=2 hours, max dose 200mg in 24 hours. polyethylen 2023-0 Yes [id number] 17g Take 1 [facility] e glycol 1-24 Packet by ity of 3350 17 00:00: mouth in [place] gram powder 00 the Medical morning Branch and 1 Packet in the evening. lactulose 2023-0 Yes [id number] 30mL Take 30 mL [facility] 10 gram/15 1-24 by mouth ity o f mL solution 00:00: in the morning Medical and 30 mL Branch in the evening. ondansetron 2023-0 Yes [id number] 4mg Take 1 [facility] 4 mg 1-24 tablet by ity of disintegrat 00:00: mouth [place] ing tablet 00 every 8 Medica l (eight) Branch hours as needed for Nausea and Vomiting (N/V). sucralfate 2023-0 Yes [id number] 1g Take 1 [facility] 1 gram 1-24 tablet by ity of tablet 00:00: mouth 00 before Medical meals and Branch at bedtime. SUMAtriptan 2023-0 Yes [id number] 50mg Take 1 [facility] 50 mg 1-24 tablet by ity of tablet 00:00: mouth as 00 needed for Medical Migraine. Branch May repeat dose after >=2 hours, max dose 200mg in 24 hours. polyethylen 2023-0 Yes [id number] 17g Take 1 [facility] e glycol 1-24 Packet by ity of 3350 17 00:00: mouth in [place] gram powder 00 the Medical morning Branch and 1 Packet in the evening. lactulose 2023-0 Yes [id number] 30mL Take 30 mL [facility] 10 gram/15 1-24 by mouth ity o f mL solution 00:00: in the morning Medical and 30 mL Branch in the evening. ondansetron 2023-0 Yes [id number] 4mg Take 1 [facility] 4 mg 1-24 tablet by ity of disintegrat 00:00: mouth [place] ing tablet 00 every 8 Medica l (eight) Branch hours as needed for Nausea and Vomiting (N/V). sucralfate 2023-0 Yes [id number] 1g Take 1 [facility] 1 gram 1-24 tablet by ity of tablet 00:00: mouth [place] 00 before Medical meals and Branch at bedtime. SUMAtriptan 2023-0 Yes [id number] 50mg Take 1 [facility] 50 mg 1-24 tablet by ity of tablet 00:00: mouth as [place] 00 needed for Medical Migraine. Branch May repeat dose after >=2 hours, max dose 200mg in 24 hours. polyethylen 2023-0 Yes [id number] 17g Take 1 [facility] e glycol 1-24 Packet by ity of 3350 17 00:00: mouth in [place] gram powder 00 the Medical morning Branch and 1 Packet in the evening. lactulose 2023-0 Yes [id number] 30mL Take 30 mL [facility] 10 gram/15 1-24 by mouth it[facility] o f mL solution 00:00: [place] morning Medical and 30 mL Branch in the evening. ondansetron 2023-0 Yes [id number] 4mg Take 1 [facility] 4 mg 1-24 tablet by ity of disintegrat 00:00: mouth [place] ing tablet 00 every 8 Medica l (eight) Branch hours as needed for Nausea and Vomiting (N/V). sucralfate 2023-0 Yes [id number] 1g Take 1 [facility] 1 gram 1-24 tablet by ity of tablet 00:00: mouth [place] 00 before Medical meals and Branch at bedtime. SUMAtriptan 2023-0 Yes [id number] 50mg Take 1 [facility] 50 mg 1-24 tablet by ity of tablet 00:00: mouth as [place] 00 needed for Medical Migraine. Branch May repeat dose after >=2 hours, max dose 200mg in 24 hours. polyethylen 2023-0 Yes [id number] 17g Take 1 [facility] e glycol 1-24 Packet by ity of 3350 17 00:00: mouth in [place] gram powder 00 the Medical morning Branch and 1 Packet in the evening. lactulose 2023-0 Yes [id number] 30mL Take 30 mL [facility] 10 gram/15 1-24 by mouth it[facility] o f mL solution 00:00: [place] morning Medical and 30 mL Branch in the evening. ondansetron 2023-0 Yes [id number] 4mg Take 1 [facility] 4 mg 1-24 tablet by ity of disintegrat 00:00: mouth [place] ing tablet 00 every 8 Medica l (eight) Branch hours as needed for Nausea and Vomiting (N/V). sucralfate 2023-0 Yes [id number] 1g Take 1 [facility] 1 gram 1-24 tablet by ity of tablet 00:00: mouth [place] 00 before Medical meals and Branch at bedtime. SUMAtriptan 2023-0 Yes [id number] 50mg Take 1 [facility] 50 mg 1-24 tablet by ity of tablet 00:00: mouth as [place] 00 needed for Medical Migraine. Branch May repeat dose after >=2 hours, max dose 200mg in 24 hours. polyethylen 2023-0 Yes [id number] 17g Take 1 [facility] e glycol 1-24 Packet by ity of 3350 17 00:00: mouth in [place] gram powder 00 the Medical morning Branch and 1 Packet in the evening. lactulose 2023-0 Yes [id number] 30mL Take 30 mL [facility] 10 gram/15 1-24 by mouth it[facility] o f mL solution 00:00: [place] morning Medical and 30 mL Branch in the evening. ondansetron 2023-0 Yes [id number] 4mg Take 1 [facility] 4 mg 1-24 tablet by ity of disintegrat 00:00: mouth [place] ing tablet 00 every 8 Medica l (eight) Branch hours as needed for Nausea and Vomiting (N/V). sucralfate 2023-0 Yes [id number] 1g Take 1 [facility] 1 gram 1-24 tablet by ity of tablet 00:00: mouth [place] 00 before Medical meals and Branch at bedtime. SUMAtriptan 2023-0 Yes [id number] 50mg Take 1 [facility] 50 mg 1-24 tablet by ity of tablet 00:00: mouth as [place] 00 needed for Medical Migraine. Branch May repeat dose after >=2 hours, max dose 200mg in 24 hours. polyethylen 2023-0 Yes [id number] 17g Take 1 [facility] e glycol 1-24 Packet by ity of 3350 17 00:00: mouth in [place] gram powder 00 the Medical morning Branch and 1 Packet in the evening. sucralfate 2023-0 Yes [id number] 1g Take 1 [facility] 1 gram 1-24 tablet by ity of tablet 00:00: mouth [place] 00 before Medical meals and Branch at bedtime. polyethylen 2023-0 Yes [id number] 17g Take 1 [facility] e glycol 1-24 Packet by ity of 3350 17 00:00: mouth in [place] gram powder 00 the Medical morning Branch and 1 Packet in the evening. sucralfate 2023-0 Yes [id number] 1g Take 1 [facility] 1 gram 1-24 tablet by ity of tablet 00:00: mouth [place] 00 before Medical meals and Branch at bedtime. polyethylen 2023-0 Yes [id number] 17g Take 1 [facility] e glycol 1-24 Packet by ity of 3350 17 00:00: mouth in [place] gram powder 00 the Medical morning Branch and 1 Packet in the evening. sucralfate 2023-0 Yes [id number] 1g Take 1 [facility] 1 gram 1-24 tablet by ity of tablet 00:00: mouth [place] 00 before Medical meals and Branch at bedtime. polyethylen 2023-0 Yes [id number] 17g Take 1 [facility] e glycol 1-24 Packet by ity of 3350 17 00:00: mouth in [place] gram powder 00 the Medical morning Branch and 1 Packet in the evening. sucralfate 2023-0 Yes [id number] 1g Take 1 [facility] 1 gram 1-24 tablet by ity of tablet 00:00: mouth [place] 00 before Medical meals and Branch at bedtime. polyethylen 2023-0 Yes [id number] 17g Take 1 [facility] e glycol 1-24 Packet by ity of 3350 17 00:00: mouth in [place] gram powder 00 the Medical morning Branch and 1 Packet in the evening. sucralfate 2023-0 Yes [id number] 1g Take 1 [facility] 1 gram 1-24 tablet by ity of tablet 00:00: mouth [place] 00 before Medical meals and Branch at bedtime. polyethylen 2023-0 Yes [id number] 17g Take 1 [facility] e glycol 1-24 Packet by ity of 3350 17 00:00: mouth in [place] gram powder 00 the Medical morning Branch and 1 Packet in the evening. sucralfate 2023-0 Yes [id number] 1g Take 1 [facility] 1 gram 1-24 tablet by ity of tablet 00:00: mouth [place] 00 before Medical meals and Branch at bedtime. polyethylen 2023-0 Yes [id number] 17g Take 1 [facility] e glycol 1-24 Packet by ity of 3350 17 00:00: mouth in [place] gram powder 00 the Medical morning Branch and 1 Packet in the evening. sucralfate 2023-0 Yes [id number] 1g Take 1 [facility] 1 gram 1-24 tablet by ity of tablet 00:00: mouth [place] 00 before Medical meals and Branch at bedtime. polyethylen 2023-0 Yes [id number] 17g Take 1 [facility] e glycol 1-24 Packet by ity of 3350 17 00:00: mouth in [place] gram powder 00 the Medical morning Branch and 1 Packet in the evening. sucralfate 2023-0 Yes [id number] 1g Take 1 [facility] 1 gram 1-24 tablet by ity of tablet 00:00: mouth [place] 00 before Medical meals and Branch at bedtime. polyethylen 2023-0 Yes [id number] 17g Take 1 [facility] e glycol 1-24 Packet by ity of 3350 17 00:00: mouth in [place] gram powder 00 the Medical morning Branch and 1 Packet in the evening. sucralfate 2023-0 Yes [id number] 1g Take 1 [facility] 1 gram 1-24 tablet by ity of tablet 00:00: mouth [place] 00 before Medical meals and Branch at bedtime. polyethylen 2023-0 Yes [id number] 17g Take 1 [facility] e glycol 1-24 Packet by ity of 3350 17 00:00: mouth in [place] gram powder 00 the Medical morning Branch and 1 Packet in the evening. sucralfate 2023-0 Yes [id number] 1g Take 1 [facility] 1 gram 1-24 tablet by ity of tablet 00:00: mouth [place] 00 before Medical meals and Branch at bedtime. polyethylen 2023-0 Yes [id number] 17g Take 1 [facility] e glycol 1-24 Packet by ity of 3350 17 00:00: mouth in [place] gram powder 00 the Medical morning Branch and 1 Packet in the evening. sucralfate 2023-0 Yes [id number] 1g Take 1 [facility] 1 gram 1-24 tablet by ity of tablet 00:00: mouth [place] 00 before Medical meals and Branch at bedtime. lactulose 2022-0 2022- No [id number] 30mL Take 30 mL [facility] 10 gram/15 1-24 05-25 by mouth ity of mL solution 00:00: 00:00 in the [place] 00 :00 morning Medical and 30 mL Branch in the evening. ondansetron 2022-0 2022- No [id number] 4mg Take 1 [facility] 4 mg 10-19-25 tablet by ity of disintegrat 00:00: 00:00 [place] tablet 00 :00 every 8 Medica l (eight) Branch hours as needed for Nausea and Vomiting (N/V). SUMAtriptan 2022- No [id number] 50mg Take 1 [facility] 50 mg 10-19-25 tablet by ity of tablet 00:00: 00:00 mouth as [place] 00 :00 needed for Medical Migraine. Branch May repeat dose after >=2 hours, max dose 200mg in 24 hours. iopamidol 2022- No [id number] 73mL 73 mL, Univers (ISOVUE 10-19 Intravenou ity o f 370-500 mL) 00:00: 00:00 s, ONCE, 1 [place] injection 00 :00 dose, On Medica l 73 mL [facility] Branch 10/18/22 at 1800, Routine lactulose 2022- No 45mL 45 mL, Unive rs (CEPHULAC) 10-18 Oral, ity of solution 45 23:45: 23:48 ONCE, 1 [place] mL 00 :00 dose, On [facility] Branch 10/18/22 at 1745, SABRINA dicyclomine 2022- No 20mg 20 mg, Uni vers (BENTYL) 10-18 Intramuscu ity of injection 22:30: 22:11 lar, ONCE, [place] 20 mg 00 :00 1 dose, On [facility] 10/18/22 at 1630, Routine NaCl 0.9% 2022- No 1000mL at 999 Uni vers (NS) bolus 10-18 mL/hr, ity of infusion 22:30: 23:42 1,000 mL, [place] 1,000 mL 00 :00 IV Medical Infusion, Branch ONCE, 1 dose, On [facility] 10/18/22 at 1630, S[place] MULTIVIT Yes Take by Univer s &MINERALS/F 10-18 mouth. ity of ERROUS FUM 21:34: [place] ([place] [address] Medical VITAMIN Branch ORAL) METHYLCELLU Yes Univer s LOSE (FIBER 10-18 ity of THERAPY 21:34: [place] MISC) 37 Medical Branch DOCUSATE Yes Take by Univer s SODIUM 1-23 mouth. ity of (COLACE 21:34: [place] ORAL) [...] ORAL 1-23 mouth ity of 20:39: daily. [place] [address] Medical Branch cholecalcif Yes 1000U Take 1,000 [facility] edmar, 1-23 Units by ity of vitamin D3, 20:39: mouth [place] 25 mcg 28 daily. Medical (1,000 Branch unit) tablet CRANBERRY Yes Take by Unive rs FRUIT - mouth ity of EXTRACT 20:39: daily. [place] (CRANBERRY 28 Medical ORAL) Branch CALCIUM Yes Take by Univer s ORAL 1-23 mouth ity of 20:39: daily. [place] [address] Medical Branch BIOTIN ORAL Yes Take by Uni vers 1-23 mouth. ity of 20:39: [place] [address] Medical Branch peg-electro Yes [id number] Take as [facility] lyte soln 1-20 9102 directed ity of 236-22.74-6 00:00: [place] .74 -5.86 00 colonoscop Medi cipriano gram y Branch solution peg-electro 2022-0 Yes [id number] Take as [facility] lyte soln 1-20 9102 directed ity of 236-22.74-6 00:00: [place] .74 -5.86 00 colonoscop Medi cipriano gram y Branch solution peg-electro 2022-0 Yes [id number] Take as [facility] lyte soln 1-20 9102 directed ity of 236-22.74-6 00:00: before [place] .74 -5.86 00 colonoscop Medi cipriano gram y Branch solution peg-electro 2022-0 Yes [id number] Take as [facility] lyte soln 1-20 9102 directed ity of 236-22.74-6 00:00: [place] .74 -5.86 00 colonoscop Medi cipriano gram y Branch solution peg-electro Yes [id number] Take as [facility] lyte soln 10-15 9102 directed ity of 236-22.74-6 00:00: [place] .[place] -5.86 00 colonoscop Medi cipriano gram y Branch solution peg-electro 0 2022- No [id number] Take as [facility] lyte soln 10-15 9102 directed ity o f 236-22.74-6 00:00: 00:00 before [place] .74 -5.86 00 :00 colonoscop Medi cipriano gram y Branch solution peg-electro 0 2022- No [id number] Take as [facility] lyte soln 10-15 9102 directed ity o f 236-22.74-6 00:00: 00:00 before [place] .74 -5.86 00 :00 colonoscop Medi cipriano gram y Branch solution peg-electro 0 2022- No [id number] Take as [facility] lyte soln 10-15 9102 directed ity o f 236-22.74-6 00:00: 00:00 before [place] .74 -5.86 00 :00 colonoscop Medi cipriano gram y Branch solution peg-electro 0 2022- No [id number] Take as [facility] lyte soln 10-15 9102 directed ity o f 236-22.74-6 00:00: 00:00 before [place] .74 -5.86 00 :00 colonoscop Medi cipriano gram y Branch solution busPIRone 2023-0 Yes [id number] 20mg Take 2 [facility] [place] 10 mg 1-17 tablets by ity of tablet 00:00: mouth in [place] 00 the Medical morning Branch and 2 tablets in the evening. busPIRone 2023-0 Yes [id number] 20mg Take 2 Un [place] 10 mg 1-17 tablets by ity of tablet 00:00: mouth in [place] 00 the Medical morning Branch and 2 tablets in the evening. busPIRone 2023-0 Yes [id number] 20mg Take 2 Un [place] 10 mg 1-17 tablets by ity of tablet 00:00: mouth in [place] 00 the Medical morning Branch and 2 tablets in the evening. busPIRone 2023-0 Yes [id number] 20mg Take 2 Un [place] 10 mg 1-17 tablets by ity of tablet 00:00: mouth in [place] 00 the Medical morning Branch and 2 tablets in the evening. busPIRone 2023-0 Yes [id number] 20mg Take 2 Un [place] 10 mg 1-17 tablets by ity of tablet 00:00: mouth in [place] 00 the Medical morning Branch and 2 tablets in the evening. busPIRone 2023-0 Yes [id number] 20mg Take 2 Un [place] 10 mg 1-17 tablets by ity of tablet 00:00: mouth in [place] 00 the Medical morning Branch and 2 tablets in the evening. busPIRone 2023-0 Yes [id number] 20mg Take 2 Un [place] 10 mg 1-17 tablets by ity of tablet 00:00: mouth in [place] 00 the Medical morning Branch and 2 tablets in the evening. busPIRone 2023-0 Yes [id number] 20mg Take 2 Un [place] 10 mg 1-17 tablets by ity of tablet 00:00: mouth in [place] 00 the Medical morning Branch and 2 tablets in the evening. busPIRone 2023-0 Yes [id number] 20mg Take 2 Un [place] 10 mg 1-17 tablets by ity of tablet 00:00: mouth in [place] 00 the Medical morning Branch and 2 tablets in the evening. busPIRone 2023-0 Yes [id number] 20mg Take 2 Un [place] 10 mg 1-17 tablets by ity of tablet 00:00: mouth in [place] 00 the Medical morning Branch and 2 tablets in the evening. busPIRone 2023-0 Yes [id number] 20mg Take 2 Un [place] 10 mg 1-17 tablets by ity of tablet 00:00: mouth in [place] 00 the Medical morning Branch and 2 tablets in the evening. busPIRone 2023-0 Yes [id number] 20mg Take 2 Un [place] 10 mg 1-17 tablets by ity of tablet 00:00: mouth in [place] [address] the Medical morning Branch and 2 tablets in the evening. busPIRone 2023-0 Yes [id number] 20mg Take 2 Un [place] 10 mg 1-17 tablets by ity of tablet 00:00: mouth in [place] 00 the Medical morning Branch and 2 tablets in the evening. busPIRone 2023-0 Yes [id number] 20mg Take 2 Un [place] 10 mg 1-17 tablets by ity of tablet 00:00: mouth in [place] 00 the Medical morning Branch and 2 tablets in the evening. busPIRone 2023-0 Yes [id number] 20mg Take 2 Un [place] 10 mg 1-17 tablets by ity of tablet 00:00: mouth in [place] 00 the Medical morning Branch and 2 tablets in the evening. busPIRone 2023-0 Yes [id number] 20mg Take 2 [facility] [place] 10 mg 1-17 tablets by ity of tablet 00:00: mouth in [place] 00 the Medical morning Branch and 2 tablets in the evening. busPIRone 2023-0 Yes [id number] 20mg Take 2 Un [place] 10 mg 1-17 tablets by ity of tablet 00:00: mouth in [place] 00 the Medical morning Branch and 2 tablets in the evening. busPIRone 2023-0 Yes [id number] 20mg Take 2 [facility] [place] 10 mg 1-17 tablets by ity of tablet 00:00: mouth in [place] 00 the Medical morning Branch and 2 tablets in the evening. busPIRone 2023-0 Yes [id number] 20mg Take 2 Un [place] 10 mg 1-17 tablets by ity of tablet 00:00: mouth in [place] 00 the Medical morning Branch and 2 tablets in the evening. busPIRone 2023-0 Yes [id number] 20mg Take 2 [facility] [place] 10 mg 1-17 tablets by ity of tablet 00:00: mouth in [place] 00 the Medical morning Branch and 2 tablets in the evening. busPIRone 2023-0 Yes [id number] 20mg Take 2 Un [place] 10 mg 1-17 tablets by ity of tablet 00:00: mouth in [place] 00 the Medical morning Branch and 2 tablets in the evening. busPIRone 2023-0 Yes [id number] 20mg Take 2 Un [place] 10 mg 1-17 tablets by ity of tablet 00:00: mouth in [place] [address] the Medical morning Branch and 2 tablets in the evening. busPIRone 2023-0 Yes [id number] 20mg Take 2 Un [place] 10 mg 1-17 tablets by ity of tablet 00:00: mouth in [place] 00 the Medical morning Branch and 2 tablets in the evening. busPIRone 2023-0 Yes [id number] 20mg Take 2 Un [place] 10 mg 1-17 tablets by ity of tablet 00:00: mouth in [place] 00 the Medical morning Branch and 2 tablets in the evening. busPIRone 2023-0 Yes [id number] 20mg Take 2 [place] 10 mg 1-17 tablets by ity of tablet 00:00: mouth in [place] 00 the Medical morning Branch and 2 tablets in the evening. busPIRone 2023-0 Yes [id number] 20mg Take 2 Un [place] 10 mg 1-17 tablets by ity of tablet 00:00: mouth in [place] 00 the Medical morning Branch and 2 tablets in the evening. busPIRone 2023-0 Yes [id number] 20mg Take 2 [place] 10 mg 1-17 tablets by ity of tablet 00:00: mouth in [place] 00 the Medical morning Branch and 2 tablets in the evening. busPIRone 2023-0 Yes [id number] 20mg Take 2 [place] 10 mg 1-17 tablets by ity of tablet 00:00: mouth in [place] 00 the Medical morning Branch and 2 tablets in the evening. busPIRone 2023-0 Yes [id number] 20mg Take 2 [place] 10 mg 1-17 tablets by ity of tablet 00:00: mouth in [place] 00 the Medical morning Branch and 2 tablets in the evening. busPIRone 2023-0 Yes [id number] 20mg Take 2 [place] 10 mg 1-17 tablets by ity of tablet 00:00: mouth in [place] 00 the Medical morning Branch and 2 tablets in the evening. busPIRone 2023-0 Yes [id number] 20mg Take 2 [place] 10 mg 1-17 tablets by ity of tablet 00:00: mouth in [place] 00 the Medical morning Branch and 2 tablets in the evening. busPIRone 2023-0 Yes [id number] 20mg Take 2 [place] 10 mg 1-17 tablets by ity of tablet 00:00: mouth in [place] [address] the Medical morning Branch and 2 tablets in the evening. busPIRone 2023-0 Yes [id number] 20mg Take 2 [place] 10 mg 1-17 tablets by ity of tablet 00:00: mouth in [place] 00 the Medical morning Branch and 2 tablets in the evening. busPIRone 2023-0 Yes [id number] 20mg Take 2 [place] 10 mg 1-17 tablets by ity of tablet 00:00: mouth in [place] 00 the Medical morning Branch and 2 tablets in the evening. busPIRone 2023-0 Yes [id number] 20mg Take 2 [place] 10 mg 1-17 tablets by ity of tablet 00:00: mouth in [place] 00 the Medical morning Branch and 2 tablets in the evening. busPIRone 2023-0 Yes [id number] 20mg Take 2 [place] 10 mg 1-17 tablets by ity of tablet 00:00: mouth in [place] 00 the Medical morning Branch and 2 tablets in the evening. busPIRone 2023-0 Yes [id number] 20mg Take 2 [place] 10 mg 1-17 tablets by ity of tablet 00:00: mouth in [place] 00 the Medical morning Branch and 2 tablets in the evening. busPIRone 2023-0 Yes [id number] 20mg Take 2 [place] 10 mg 1-17 tablets by ity of tablet 00:00: mouth in [place] 00 the Medical morning Branch and 2 tablets in the evening. busPIRone 2023-0 Yes [id number] 20mg Take 2 [place] 10 mg 1-17 tablets by ity of tablet 00:00: mouth in [place] 00 the Medical morning Branch and 2 tablets in the evening. busPIRone 2023-0 Yes [id number] 20mg Take 2 [place] 10 mg 1-17 tablets by ity of tablet 00:00: mouth in [place] 00 the Medical morning Branch and 2 tablets in the evening. busPIRone 2023-0 Yes [id number] 20mg Take 2 [place] 10 mg 1-17 tablets by ity of tablet 00:00: mouth in [place] 00 the Medical morning Branch and 2 tablets in the evening. busPIRone 2023-0 Yes [id number] 20mg Take 2 [place] 10 mg 1-17 tablets by ity of tablet 00:00: mouth in [place] [address] the Medical morning Branch and 2 tablets in the evening. busPIRone 2023-0 Yes [id number] 20mg Take 2 Un [place] 10 mg 1-17 tablets by ity of tablet 00:00: mouth in [place] 00 the Medical morning Branch and 2 tablets in the evening. busPIRone 2023-0 Yes [id number] 20mg Take 2 [place] 10 mg 1-17 tablets by ity of tablet 00:00: mouth in [place] 00 the Medical morning Branch and 2 tablets in the evening. busPIRone 2023-0 Yes [id number] 20mg Take 2 [place] 10 mg 1-17 tablets by ity of tablet 00:00: mouth in [place] 00 the Medical morning Branch and 2 tablets in the evening. busPIRone 2023-0 Yes [id number] 20mg Take 2 [place] 10 mg 1-17 tablets by ity of tablet 00:00: mouth in [place] 00 the Medical morning Branch and 2 tablets in the evening. busPIRone 2023-0 Yes [id number] 20mg Take 2 [place] 10 mg 1-17 tablets by ity of tablet 00:00: mouth in [place] 00 the Medical morning Branch and 2 tablets in the evening. busPIRone 2023-0 Yes [id number] 20mg Take 2 [place] 10 mg 1-17 tablets by ity of tablet 00:00: mouth in [place] 00 the Medical morning Branch and 2 tablets in the evening. busPIRone 2023-0 Yes [id number] 20mg Take 2 [place] 10 mg 1-17 tablets by ity of tablet 00:00: mouth in [place] 00 the Medical morning Branch and 2 tablets in the evening. busPIRone 2023-0 Yes [id number] 20mg Take 2 [place] 10 mg 1-17 tablets by ity of tablet 00:00: mouth in [place] 00 the Medical morning Branch and 2 tablets in the evening. busPIRone 2023-0 Yes [id number] 20mg Take 2 [facility] 10 mg 1-17 tablets by it[facility] of tablet 00:00: mouth in [place] 00 the Medical morning Branch and 2 tablets in the evening. busPIRone 2023-0 Yes [id number] 20mg Take 2 [facility] 10 mg 1-17 tablets by ity of tablet 00:00: mouth in [place] [address] the Medical morning Branch and 2 tablets in the evening. busPIRone 2023-0 Yes [id number] 20mg Take 2 [facility] 10 mg 1-17 tablets by ity of tablet 00:00: mouth in [place] 00 the Medical morning Branch and 2 tablets in the evening. busPIRone 2023-0 Yes [id number] 20mg Take 2 [facility] [place] 10 mg 1-17 tablets by ity of tablet 00:00: mouth in [place] 00 the Medical morning Branch and 2 tablets in the evening. busPIRone 2023-0 Yes [id number] 20mg Take 2 [facility] [place] 10 mg 1-17 tablets by ity of tablet 00:00: mouth in [place] 00 the Medical morning Branch and 2 tablets in the evening. busPIRone 2023-0 Yes [id number] 20mg Take 2 [facility] [place] 10 mg 1-17 tablets by ity of tablet 00:00: mouth in [place] 00 the Medical morning Branch and 2 tablets in the evening. busPIRone 2023-0 Yes [id number] 20mg Take 2 [facility] [place] 10 mg 1-17 tablets by ity of tablet 00:00: mouth in [place] 00 the Medical morning Branch and 2 tablets in the evening. busPIRone 2023-0 Yes [id number] 20mg Take 2 [facility] [place] 10 mg 1-17 tablets by ity of tablet 00:00: mouth in [place] 00 the Medical morning Branch and 2 tablets in the evening. busPIRone 2023-0 Yes [id number] 20mg Take 2 [facility] [place] 10 mg 1-17 tablets by ity of tablet 00:00: mouth in [place] 00 the Medical morning Branch and 2 tablets in the evening. busPIRone 2023-0 Yes [id number] 20mg Take 2 [facility] [place] 10 mg 1-17 tablets by ity of tablet 00:00: mouth in [place] 00 the Medical morning Branch and 2 tablets in the evening. busPIRone 2023-0 Yes [id number] 20mg Take 2 [facility] [place] 10 mg 1-17 tablets by ity of tablet 00:00: mouth in [place] 00 the Medical morning Branch and 2 tablets in the evening. busPIRone 2023-0 Yes [id number] 20mg Take 2 [facility] 10 mg 1-17 tablets by ity of tablet 00:00: mouth in [place] [address] the Medical morning Branch and 2 tablets in the evening. busPIRone 2023-0 Yes [id number] 20mg Take 2 [facility] 10 mg 1-17 tablets by ity of tablet 00:00: mouth in [place] 00 the Medical morning Branch and 2 tablets in the evening. busPIRone 2023-0 Yes [id number] 20mg Take 2 [facility] [place] 10 mg 1-17 tablets by ity of tablet 00:00: mouth in [place] 00 the Medical morning Branch and 2 tablets in the evening. busPIRone 2023-0 Yes [id number] 20mg Take 2 [facility] 10 mg 1-17 tablets by ity of tablet 00:00: mouth in [place] 00 the Medical morning Branch and 2 tablets in the evening. sulfamethox 2023-0 Yes TAKE 1 [facility] [...] FOR Bran ch 7 DAYS traMADoL 50 3-0 Yes TAKE 1 [facility] ers mg tablet 1-14 TABLET BY ity o f 00:00: MOUTH [place] 00 EVERY 8 Medical HOURS Branch NEEDED sulfamethox 2023-0 Yes TAKE 1 Univ ers azole-trime 1-14 TABLET BY ity of thoprim 00:00: MOUTH [place] 800-160 mg 00 EVERY 12 Medic al per tablet HOURS FOR Bran ch 7 DAYS traMADoL 50 3-0 Yes TAKE 1 [facility] ers mg tablet 1-14 TABLET BY ity o f 00:00: MOUTH [place] 00 EVERY 8 Medical HOURS Branch NEEDED sulfamethox 2023-0 Yes TAKE 1 [facility] ers azole-trime 1-14 TABLET BY ity of thoprim 00:00: MOUTH [place] 800-160 mg 00 EVERY 12 Medic al per tablet HOURS FOR Bran ch 7 DAYS traMADoL 50 3-0 Yes TAKE 1 [facility] ers mg tablet 1-14 TABLET BY ity o f 00:00: MOUTH [place] 00 EVERY 8 Medical HOURS Branch NEEDED traMADoL 50 3-0 Yes TAKE 1 Univ ers mg tablet [...] HOURS FOR Bran ch 7 DAYS sulfamethox 3-0 2023- No TAKE 1 Uni vers azole-trime 1-14 24 TABLET BY it y of thoprim 00:00: 00:00 MOUTH [place] 800-160 mg 00 :00 EVERY 12 Medic al per tablet HOURS FOR Bran ch 7 DAYS metroNIDAZO 3-0 Yes [id number] 500mg Take 1 [facility] LE 500 mg 1-12 tablet by ity o f tablet 00:00: mouth in [place] 00 the Medical morning Branch and 1 tablet in the evening. dicyclomine 2023-0 Yes [id number] 20mg Take 1 [facility] 20 mg 1-12 tablet by ity of tablet 00:00: mouth [place] [address] ([facility] times [place] daily. metroNIDAZO 2023-0 Yes [id number] 500mg Take 1 [facility] LE 500 mg 1-12 tablet by ity o f tablet 00:00: mouth in [place] 00 the Medical morning Branch and 1 tablet in the evening. dicyclomine 3-0 Yes [id number] 20mg Take 1 [facility] 20 mg 1-12 tablet by ity of tablet 00:00: mouth 4 [place] [address] ([facility] daily. metroNIDAZO 3-0 Yes [id number] 500mg Take 1 [facility] LE 500 mg 1-12 tablet by ity o f tablet 00:00: mouth in [place] 00 the [facility] morning Branch and 1 tablet in the evening. dicyclomine 2023-0 Yes [id number] 20mg Take 1 [facility] 20 mg 1-12 tablet by ity of tablet 00:00: mouth [place] [address] ([facility] daily. metroNIDAZO 2023-0 Yes [id number] 500mg Take 1 [facility] LE 500 mg 1-12 tablet by ity o f tablet 00:00: mouth in [place] 00 the Medical morning Branch and 1 tablet in the evening. dicyclomine 2023-0 Yes [id number] 20mg Take 1 [facility] 20 mg 1-12 tablet by ity of tablet 00:00: mouth [place] [address] ([facility] times [place] daily. metroNIDAZO 2023-0 Yes [id number] 500mg Take 1 [facility] LE 500 mg 1-12 tablet by ity o f tablet 00:00: mouth in [place] 00 the [facility] morning Branch and 1 tablet in the evening. dicyclomine 2023-0 Yes [id number] 20mg Take 1 [facility] 20 mg 1-12 tablet by ity of tablet 00:00: mouth 4 [place] 00 ([facility]) Medical times Branch daily. metroNIDAZO 2023-0 Yes [id number] 500mg Take 1 [facility] LE 500 mg 1-12 tablet by ity o f tablet 00:00: mouth in [place] 00 the Medical morning Branch and 1 tablet in the evening. dicyclomine 2023-0 Yes [id number] 20mg Take 1 [facility] 20 mg 1-12 tablet by ity of tablet 00:00: mouth 4 [place] 00 ([facility]) Medical times Branch daily. metroNIDAZO 2023-0 2023- No [id number] 500mg Take 1 [facility] LE 500 mg 10-0724 tablet by ity of tablet 00:00: 00:00 mouth in [place] 00 :00 the Medical morning Branch and 1 tablet in the evening. dicyclomine 2023-0 2023- No [id number] 20mg Take 1 [facility] 20 mg 10-0724 tablet by ity of tablet 00:00: 00:00 mouth 4 [place] 00 :00 ([facility]) Medical times Branch daily. metroNIDAZO 2023-0 2023- No [id number] 500mg Take 1 [facility] LE 500 mg 10-07 tablet by ity of tablet 00:00: 00:00 mouth in [place] 00 :00 the Medical morning Branch and 1 tablet in the evening. dicyclomine 2023-0 2023- No [id number] 20mg Take 1 [facility] 20 mg 10-0724 tablet by ity of tablet 00:00: 00:00 mouth 4 [place] 00 :00 ([facility]) Medical times Branch daily. metroNIDAZO 2023-0 2023- No [id number] 500mg Take 1 [facility] LE 500 mg 10-0724 tablet by ity of tablet 00:00: 00:00 mouth in [place] 00 :00 the Medical morning Branch and 1 tablet in the evening. dicyclomine 2023-0 2023- No [id number] 20mg Take 1 [facility] 20 mg 10-07-24 tablet by ity of tablet 00:00: 00:00 mouth 4 [place] 00 :00 ([facility]) Medical times Branch daily. metroNIDAZO 2023-0 2023- No [id number] 500mg Take 1 [facility] LE 500 mg 1-12 01-24 tablet by ity of tablet 00:00: 00:00 mouth in [place] 00 :00 the Medical morning Branch and 1 tablet in the evening. dicyclomine 2023-0 2023- No [id number] 20mg Take 1 [facility] 20 mg 10-07 tablet by ity of tablet 00:00: 00:00 mouth 4 [place] 00 :00 (four) Medical times Branch daily. metroNIDAZO 2023-0 2023- No [id number] 500mg Take 1 [facility] LE 500 mg 10-07 tablet by ity of tablet 00:00: 00:00 mouth in [place] 00 :00 the Medical morning Branch and 1 tablet in the evening. dicyclomine 2023-0 3- No [id number] 20mg Take 1 [facility] 20 mg 10-07 tablet by ity of tablet 00:00: 00:00 mouth 4 [place] 00 :00 ([facility]) Medical times Branch daily. dicyclomine 2023-0 Yes 20mg Take 20 mg Univers 20 mg 1-10 by mouth 4 ity of tablet 00:00: ([facility]) [place] 00 times Medical daily. Branch metoclopram 2023-0 Yes TAKE 1 Univ ers dariela HCl 10 1-10 TABLET BY ity of mg tablet 00:00: [facility] 00 EVERY 6 Medical HOURS (30 Branch MINUTES BEFORE MEALS AND AT BEDTIME) dicyclomine 2023-0 Yes 20mg Take 20 mg Univers 20 mg 1-10 by mouth 4 ity of tablet 00:00: ([facility]) [place] 00 times Medical daily. Branch metoclopram 2023-0 Yes TAKE 1 Univ ers dariela HCl 10 1-10 TABLET BY ity of mg tablet 00:00: MOUTH [place] 00 EVERY 6 Medical HOURS (30 Branch MINUTES BEFORE MEALS AND AT BEDTIME) metoclopram 2023-0 Yes TAKE 1 Univ ers dariela HCl 10 1-10 TABLET BY ity of mg tablet 00:00: MOUTH [place] 00 EVERY 6 Medical HOURS (30 Branch MINUTES BEFORE MEALS AND AT BEDTIME) metoclopram 2023-0 Yes TAKE 1 Univ ers dariela HCl 10 1-10 TABLET BY ity of mg tablet 00:00: MOUTH [place] 00 EVERY 6 Medical HOURS (30 Branch MINUTES BEFORE MEALS AND AT BEDTIME) metoclopram 2023-0 Yes TAKE 1 Univ ers dariela HCl 10 1-10 TABLET BY ity of mg tablet 00:00: MOUTH [place] 00 EVERY 6 Medical HOURS (30 Branch [...] Take 20 mg Univers 20 mg 1-10 -12 by mouth 4 ity of tablet 00:00: [...] Medica l NEEDED Branch pregabalin 2021-09 Yes [id number] 150mg Take 1 [facility] 150 mg 2-14 capsule by ity of capsule 00:00: mouth in [address] and 1 capsule at noon and 1 capsule in the evening. pregabalin 2021-09 Yes [id number] 150mg Take 1 [facility] 150 mg 2-14 capsule by ity of capsule 00:00: mouth in [address] and 1 capsule at noon and 1 capsule in the evening. pregabalin 2021-09 Yes [id number] 150mg Take 1 [facility] 150 mg 2-14 capsule by ity of capsule 00:00: mouth in [address] and 1 capsule at noon and 1 capsule in the evening. pregabalin 2021-09 Yes [id number] 150mg Take 1 [facility] 150 mg 2-14 capsule by ity of capsule 00:00: mouth in [address] and 1 capsule at noon and 1 capsule in the evening. pregabalin 2021-09 Yes [id number] 150mg Take 1 [facility] 150 mg 2-14 capsule by ity of capsule 00:00: mouth in [address] and 1 capsule at noon and 1 capsule in the evening. pregabalin 2021-09 Yes [id number] 150mg Take 1 [facility] 150 mg 2-14 capsule by ity of capsule 00:00: mouth in [address] and 1 capsule at noon and 1 capsule in the evening. pregabalin 2021-09 Yes [id number] 150mg Take 1 [facility] 150 mg 2-14 capsule by ity of capsule 00:00: mouth in [address] and 1 capsule at noon and 1 capsule in the evening. pregabalin 2021-09 Yes [id number] 150mg Take 1 [facility] 150 mg 2-14 capsule by ity of capsule 00:00: mouth in [address] and 1 capsule at noon and 1 capsule in the evening. pregabalin 2021-09 Yes [id number] 150mg Take 1 [facility] 150 mg 2-14 capsule by ity of capsule 00:00: mouth in [address] and 1 capsule at noon and 1 capsule in the evening. pregabalin 2021- Yes [id number] 150mg Take 1 [facility] 150 mg 2-14 capsule by ity of capsule 00:00: mouth in [address] and 1 capsule at noon and 1 capsule in the evening. pregabalin 2021-09 Yes [id number] 150mg Take 1 [facility] 150 mg 2-14 capsule by ity of capsule 00:00: mouth in [place] 00 the [facility] morning Branch and 1 capsule at noon and 1 capsule in the evening. pregabalin 2021-09 Yes [id number] 150mg Take 1 [facility] 150 mg 2-14 capsule by ity of capsule 00:00: mouth in [place] 00 the [facility] morning Branch and 1 capsule at noon and 1 capsule in the evening. pregabalin 2021-09- No [id number] 150mg Take 1 [facility] 150 mg 2-14 -24 capsule by ity of capsule 00:00: 00:00 mouth in [place] 00 :00 the [facility] and 1 capsule at noon and 1 capsule in the evening. pregabalin 2021-09- No [id number] 150mg Take 1 [facility] 150 mg 2-14 -24 capsule by ity of capsule 00:00: 00:00 mouth in [place] 00 :00 the [facility] and 1 capsule at noon and 1 capsule in the evening. pregabalin 2021-09- No [id number] 150mg Take 1 [facility] 150 mg 2-14 -24 capsule by ity of capsule 00:00: 00:00 mouth in [place] 00 :00 the [facility] and 1 capsule at noon and 1 capsule in the evening. pregabalin 2021-09- No [id number] 150mg Take 1 [facility] 150 mg 2-14 -24 capsule by ity of capsule 00:00: 00:00 mouth in [place] 00 :00 the [facility] and 1 capsule at noon and 1 capsule in the evening. pregabalin 2021-09- No [id number] 150mg Take 1 Univers 150 mg 2-14 -24 capsule by ity of capsule 00:00: 00:00 mouth in [place] 00 :00 the [facility] and 1 capsule at noon and 1 capsule in the evening. montelukast 2021-09 Yes [id number] 10mg Take 1 Univers (SINGULAIR) 2-09 tablet by ity of 10 mg 00:00: mouth in [place] tablet 00 the [facility] morning. Branch montelukast 2021-09 Yes [id number] 10mg Take 1 Univers (SINGULAIR) 2-09 tablet by ity of 10 mg 00:00: mouth in [place] tablet 00 the Medical morning. [facility] 2021-09 Yes [id number] 10mg Take 1 Univers (SINGULAIR) 2-09 tablet by ity of 10 mg 00:00: mouth in [place] tablet 00 the Medical morning. [facility] 2021-09 Yes [id number] 10mg Take 1 Univers (SINGULAIR) 2-09 tablet by ity of 10 mg 00:00: mouth in [place] tablet 00 the Medical morning. [facility] 2021-09 Yes [id number] 10mg Take 1 Univers (SINGULAIR) 2-09 tablet by ity of 10 mg 00:00: mouth in [place] tablet 00 the Medical morning. [facility] 2021-09 Yes [id number] 10mg Take 1 Univers (SINGULAIR) 2-09 tablet by ity of 10 mg 00:00: mouth in [place] tablet 00 the Medical morning. [facility] 2021-09 Yes [id number] 10mg Take 1 Univers (SINGULAIR) 2-09 tablet by ity of 10 mg 00:00: mouth in [place] tablet 00 the Medical morning. [facility] 2021-09 Yes [id number] 10mg Take 1 Univers (SINGULAIR) 2-09 tablet by ity of 10 mg 00:00: mouth in [place] tablet 00 the Medical morning. [facility] 2021-09 Yes [id number] 10mg Take 1 Univers (SINGULAIR) 2-09 tablet by ity of 10 mg 00:00: mouth in [place] tablet 00 the Medical morning. [facility] 2021-09 Yes [id number] 10mg Take 1 Univers (SINGULAIR) 2-09 tablet by ity of 10 mg 00:00: mouth in [place] tablet 00 the Medical morning. [facility] 2021-09 Yes [id number] 10mg Take 1 Univers (SINGULAIR) 2-09 tablet by ity of 10 mg 00:00: mouth in [place] tablet 00 the Medical morning. [facility] 2021-09 Yes [id number] 10mg Take 1 Univers (SINGULAIR) 2-09 tablet by ity of 10 mg 00:00: mouth in [place] tablet 00 the Medical morning. [facility] 2021-09 Yes [id number] 10mg Take 1 Univers (SINGULAIR) 2-09 tablet by ity of 10 mg 00:00: mouth in [place] tablet 00 the Medical morning. [facility] 2021-09 Yes [id number] 10mg Take 1 Univers (SINGULAIR) 2-09 tablet by ity of 10 mg 00:00: mouth in [place] tablet 00 the Medical morning. [facility] 2021-09 Yes [id number] 10mg Take 1 Univers (SINGULAIR) 2-09 tablet by ity of 10 mg 00:00: mouth in [place] tablet 00 the Medical morning. [facility] 2021-09 Yes [id number] 10mg Take 1 Univers (SINGULAIR) 2-09 tablet by ity of 10 mg 00:00: mouth in [place] tablet 00 the Medical morning. [facility] 2021-09 Yes [id number] 10mg Take 1 Univers (SINGULAIR) 2-09 tablet by ity of 10 mg 00:00: mouth in [place] tablet 00 the Medical morning. [facility] 2021-09 Yes [id number] 10mg Take 1 Univers (SINGULAIR) 2-09 tablet by ity of 10 mg 00:00: mouth in [place] tablet 00 the Medical morning. [facility] 2021-09 Yes [id number] 10mg Take 1 Univers (SINGULAIR) 2-09 tablet by ity of 10 mg 00:00: mouth in [place] tablet 00 the Medical morning. [facility] 2021-09 Yes [id number] 10mg Take 1 Univers (SINGULAIR) 2-09 tablet by ity of 10 mg 00:00: mouth in [place] tablet 00 the Medical morning. [facility] 2021-09 Yes [id number] 10mg Take 1 Univers (SINGULAIR) 2-09 tablet by ity of 10 mg 00:00: mouth in [place] tablet 00 the Medical morning. [facility] 2021-09 Yes [id number] 10mg Take 1 Univers (SINGULAIR) 2-09 tablet by ity of 10 mg 00:00: mouth in [place] tablet 00 the Medical morning. [facility] 2021-09 Yes [id number] 10mg Take 1 Univers (SINGULAIR) 2-09 tablet by ity of 10 mg 00:00: mouth in [place] tablet 00 the Medical morning. [facility] 2021-09 Yes [id number] 10mg Take 1 Univers (SINGULAIR) 2-09 tablet by ity of 10 mg 00:00: mouth in [place] tablet 00 the Medical morning. [facility] 2021-09 Yes [id number] 10mg Take 1 Univers (SINGULAIR) 2-09 tablet by ity of 10 mg 00:00: mouth in [place] tablet 00 the Medical morning. [facility] 2021-09 Yes [id number] 10mg Take 1 Univers (SINGULAIR) 2-09 tablet by ity of 10 mg 00:00: mouth in [place] tablet 00 the Medical morning. [facility] 2021-09 Yes [id number] 10mg Take 1 Univers (SINGULAIR) 2-09 tablet by ity of 10 mg 00:00: mouth in [place] tablet 00 the Medical morning. [facility] 2021-09 Yes [id number] 10mg Take 1 Univers (SINGULAIR) 2-09 tablet by ity of 10 mg 00:00: mouth in [place] tablet 00 the Medical morning. [facility] 2021-09 Yes [id number] 10mg Take 1 Univers (SINGULAIR) 2-09 tablet by ity of 10 mg 00:00: mouth in [place] tablet 00 the Medical morning. [facility] 2021-09 Yes [id number] 10mg Take 1 Univers (SINGULAIR) 2-09 tablet by ity of 10 mg 00:00: mouth in [place] tablet 00 the Medical morning. [facility] 2021-09 Yes [id number] 10mg Take 1 Univers (SINGULAIR) 2-09 tablet by ity of 10 mg 00:00: mouth in [place] tablet 00 the Medical morning. [facility] 2021-09 Yes [id number] 10mg Take 1 Univers (SINGULAIR) 2-09 tablet by ity of 10 mg 00:00: mouth in [place] tablet 00 the Medical morning. [facility] 2021-09 Yes [id number] 10mg Take 1 Univers (SINGULAIR) 2-09 tablet by ity of 10 mg 00:00: mouth in [place] tablet 00 the Medical morning. [facility] 2021-09 Yes [id number] 10mg Take 1 Univers (SINGULAIR) 2-09 tablet by ity of 10 mg 00:00: mouth in [place] tablet 00 the Medical morning. [facility] 2021-09 Yes [id number] 10mg Take 1 Univers (SINGULAIR) 2-09 tablet by ity of 10 mg 00:00: mouth in [place] tablet 00 the Medical morning. [facility] 2021-09 Yes [id number] 10mg Take 1 Univers (SINGULAIR) 2-09 tablet by ity of 10 mg 00:00: mouth in [place] tablet 00 the Medical morning. [facility] 2021-09 Yes [id number] 10mg Take 1 Univers (SINGULAIR) 2-09 tablet by ity of 10 mg 00:00: mouth in [place] tablet 00 the Medical morning. [facility] 2021-09 Yes [id number] 10mg Take 1 Univers (SINGULAIR) 2-09 tablet by ity of 10 mg 00:00: mouth in [place] tablet 00 the Medical morning. [facility] 2021-09 Yes [id number] 10mg Take 1 Univers (SINGULAIR) 2-09 tablet by ity of 10 mg 00:00: mouth in [place] tablet 00 the Medical morning. [facility] 2021-09 Yes [id number] 10mg Take 1 Univers (SINGULAIR) 2-09 tablet by ity of 10 mg 00:00: mouth in [place] tablet 00 the Medical morning. [facility] 2021-09 Yes [id number] 10mg Take 1 Univers (SINGULAIR) 2-09 tablet by ity of 10 mg 00:00: mouth in [place] tablet 00 the Medical morning. [facility] 2021-09 Yes [id number] 10mg Take 1 Univers (SINGULAIR) 2-09 tablet by ity of 10 mg 00:00: mouth in [place] tablet 00 the Medical morning. [facility] 2021-09 Yes [id number] 10mg Take 1 Univers (SINGULAIR) 2-09 tablet by ity of 10 mg 00:00: mouth in [place] tablet 00 the Medical morning. [facility] 2021-09 Yes [id number] 10mg Take 1 Univers (SINGULAIR) 2-09 tablet by ity of 10 mg 00:00: mouth in [place] tablet 00 the Medical morning. [facility] 2021-09 Yes [id number] 10mg Take 1 Univers (SINGULAIR) 2-09 tablet by ity of 10 mg 00:00: mouth in [place] tablet 00 the Medical morning. [facility] 2021-09 Yes [id number] 10mg Take 1 Univers (SINGULAIR) 2-09 tablet by ity of 10 mg 00:00: mouth in [place] tablet 00 the Medical morning. [facility] 2021-09 Yes [id number] 10mg Take 1 Univers (SINGULAIR) 2-09 tablet by ity of 10 mg 00:00: mouth in [place] tablet 00 the Medical morning. [facility] 2021-09 Yes [id number] 10mg Take 1 Univers (SINGULAIR) 2-09 tablet by ity of 10 mg 00:00: mouth in [place] tablet 00 the Medical morning. [facility] 2021-09 Yes [id number] 10mg Take 1 Univers (SINGULAIR) 2-09 tablet by ity of 10 mg 00:00: mouth in [place] tablet 00 the Medical morning. [facility] 2021-09 Yes [id number] 10mg Take 1 Univers (SINGULAIR) 2-09 tablet by ity of 10 mg 00:00: mouth in [place] tablet 00 the Medical morning. [facility] 2021-09 Yes [id number] 10mg Take 1 Univers (SINGULAIR) 2-09 tablet by ity of 10 mg 00:00: mouth in [place] tablet 00 the Medical morning. [facility] 2021-09 Yes [id number] 10mg Take 1 Univers (SINGULAIR) 2-09 tablet by ity of 10 mg 00:00: mouth in [place] tablet 00 the Medical morning. [facility] 2021-09 Yes [id number] 10mg Take 1 Univers (SINGULAIR) 2-09 tablet by ity of 10 mg 00:00: mouth in [place] tablet 00 the Medical morning. [facility] 2021-09 Yes [id number] 10mg Take 1 Univers (SINGULAIR) 2-09 tablet by ity of 10 mg 00:00: mouth in [place] tablet 00 the Medical morning. [facility] 2021-09 Yes [id number] 10mg Take 1 Univers (SINGULAIR) 2-09 tablet by ity of 10 mg 00:00: mouth in [place] tablet 00 the Medical morning. [facility] 2021-09 Yes [id number] 10mg Take 1 Univers (SINGULAIR) 2-09 tablet by ity of 10 mg 00:00: mouth in [place] tablet 00 the Medical morning. [facility] 2021-09 Yes [id number] 10mg Take 1 Univers (SINGULAIR) 2-09 tablet by ity of 10 mg 00:00: mouth in [place] tablet 00 the Medical morning. [facility] 2021-09 Yes [id number] 10mg Take 1 Univers (SINGULAIR) 2-09 tablet by ity of 10 mg 00:00: mouth in [place] tablet 00 the Medical morning. [facility] 2021-09 Yes [id number] 10mg Take 1 Univers (SINGULAIR) 2-09 tablet by ity of 10 mg 00:00: mouth in [place] tablet 00 the Medical morning. [facility] 2021-09 Yes [id number] 10mg Take 1 Univers (SINGULAIR) 2-09 tablet by ity of 10 mg 00:00: mouth in [place] tablet 00 the Medical morning. [facility] 2021-09 Yes [id number] 10mg Take 1 [facility] (SINGULAIR) 2-09 tablet by ity of 10 mg 00:00: mouth in [place] tablet 00 the Medical morning. [facility] 2021-09 Yes [id number] 10mg Take 1 [facility] (SINGULAIR) 2-09 tablet by ity of 10 mg 00:00: mouth in [place] tablet 00 the Medical morning. [facility] 2021-09 Yes [id number] 10mg Take 1 [facility] (SINGULAIR) 2-09 tablet by ity of 10 mg 00:00: mouth in [place] tablet 00 the Medical morning. [facility] 2021-09 Yes [id number] 10mg Take 1 [facility] (SINGULAIR) 2-09 tablet by ity of 10 mg 00:00: mouth in [place] tablet 00 the Medical morning. [facility] 2021-09 Yes [id number] 10mg Take 1 [facility] (SINGULAIR) 2-09 tablet by ity of 10 mg 00:00: mouth in [place] tablet 00 the Medical morning. [facility] 2021-09 Yes [id number] 10mg Take 1 [facility] (SINGULAIR) 2-09 tablet by ity of 10 mg 00:00: mouth in [place] tablet 00 [facility] [id number] 10mg Take 1 [facility] (SINGULAIR) 2-09 tablet by ity of 10 mg 00:00: mouth in [place] tablet 00 the Medical morning. [place] [facility] [id number] 10mg Take 1 [facility] (SINGULAIR) 2-09 tablet by ity of 10 mg 00:00: mouth in [place] tablet 00 the Medical morning. [facility] 2021-09 Yes [id number] 10mg Take 1 [facility] (SINGULAIR) 2-09 tablet by ity of 10 mg 00:00: mouth in [place] tablet 00 the Medical morning. [facility] 2021-09 Yes [id number] 10mg Take 1 [facility] (SINGULAIR) 2-09 tablet by ity of 10 mg 00:00: mouth in [place] tablet 00 the [facility]. [facility] [id number] 10mg Take 1 [facility] (SINGULAIR) 2-09 tablet by ity of 10 mg 00:00: mouth in [place] tablet 00 the Medical morning. [facility] 2021-09 Yes [id number] 10mg Take 1 [facility] (SINGULAIR) 2-09 tablet by ity of 10 mg 00:00: mouth in [place] tablet 00 the Medical morning. [facility] 2021-09 Yes [id number] 10mg Take 1 [facility] (SINGULAIR) 2-09 tablet by ity of 10 mg 00:00: mouth in [place] tablet 00 the Medical [facility]. [facility] [id number] 10mg Take 1 [facility] (SINGULAIR) 2-09 tablet by ity of 10 mg 00:00: mouth in [place] tablet 00 the Medical morning. [facility] Yes [id number] 10mg Take 1 [facility] (SINGULAIR) 2-09 tablet by ity of 10 mg 00:00: mouth in [place] tablet 00 the Medical morning. [place] [facility] 2021-09 Yes [id number] 10mg Take 1 [facility] (SINGULAIR) 2-09 tablet by ity of 10 mg 00:00: mouth in [place] tablet 00 the Medical morning. [place] famotidine 2021-09 Yes TAKE 1 Unive rs [...] DAILY FOR Medical 7 DAYS Branch levoFLOXaci 2021-093- No TAKE 1 Uni vers n 500 mg 2-02 01-24 TABLET BY ity o f tablet 00:00: [...] No TAKE 1 Univ ers 20 mg 10-2820 TABLET BY ity of tablet 00:00: 00:00 MOUTH [place] 00 :00 EVERY 12 Medical HOURS FOR Branch 10 DAYS CYANOCOBALA 2021-09 Yes [id number] INJECT 1ML [facility] MIN 1,000 1-30 INTRAMUSCU ity of mcg/mL 00:00: LARLY [place] injection 00 EVERY TWO Medic al WEEKS Branch CYANOCOBALA 2021-09 Yes [id number] INJECT 1ML [facility] MIN 1,000 1-30 INTRAMUSCU ity of mcg/mL 00:00: LARLY [place] injection 00 EVERY TWO Medic al WEEKS Branch CYANOCOBALA 2021-09 Yes [id number] INJECT 1ML [facility] MIN 1,000 1-30 INTRAMUSCU ity of mcg/mL 00:00: LARLY [place] injection 00 EVERY TWO Medic al WEEKS Branch CYANOCOBALA 2021-09 Yes [id number] INJECT 1ML [facility] MIN 1,000 1-30 INTRAMUSCU ity of mcg/mL 00:00: LARLY [place] injection 00 EVERY TWO Medic al WEEKS Branch CYANOCOBALA 2021-09 Yes [id number] INJECT 1ML [facility] MIN 1,000 1-30 INTRAMUSCU ity of mcg/mL 00:00: LARLY [place] injection 00 EVERY TWO Medic al WEEKS Branch CYANOCOBALA 2021-09 Yes [id number] INJECT 1ML [facility] MIN 1,000 1-30 INTRAMUSCU ity of mcg/mL 00:00: LARLY [place] injection 00 EVERY TWO Medic al WEEKS Branch CYANOCOBALA 2021-09 Yes [id number] INJECT 1ML [facility] MIN 1,000 1-30 INTRAMUSCU ity of mcg/mL 00:00: LARLY [place] injection 00 EVERY TWO Medic al WEEKS Branch CYANOCOBALA 2021-09 Yes [id number] INJECT 1ML [facility] MIN 1,000 1-30 INTRAMUSCU ity of mcg/mL 00:00: LARLY [place] injection 00 EVERY TWO Medic al WEEKS Branch CYANOCOBALA 2021-09 Yes [id number] INJECT 1ML [facility] MIN 1,000 1-30 INTRAMUSCU ity of mcg/mL 00:00: LARLY [place] injection 00 EVERY TWO Medic al WEEKS Branch CYANOCOBALA 2021-09 Yes [id number] INJECT 1ML [facility] MIN 1,000 1-30 INTRAMUSCU ity of mcg/mL 00:00: LARLY [place] injection 00 EVERY TWO Medic al WEEKS Branch CYANOCOBALA 2021-09 Yes [id number] INJECT 1ML [facility] MIN 1,000 1-30 INTRAMUSCU ity of mcg/mL 00:00: LARLY [place] injection 00 EVERY TWO Medic al WEEKS Branch CYANOCOBALA 2021-09 Yes [id number] INJECT 1ML [facility] MIN 1,000 1-30 INTRAMUSCU ity of mcg/mL 00:00: LARLY [place] injection 00 EVERY TWO Medic al WEEKS Branch CYANOCOBALA 2021-09 Yes [id number] INJECT 1ML [facility] MIN 1,000 1-30 INTRAMUSCU ity of mcg/mL 00:00: LARLY [place] injection 00 EVERY TWO Medic al WEEKS Branch CYANOCOBALA 2021-09 Yes [id number] INJECT 1ML [facility] MIN 1,000 1-30 INTRAMUSCU ity of mcg/mL 00:00: LARLY [place] injection 00 EVERY TWO Medic al WEEKS Branch CYANOCOBALA 2021-09 Yes [id number] INJECT 1ML [facility] MIN 1,000 1-30 INTRAMUSCU ity of mcg/mL 00:00: LARLY [place] injection 00 EVERY TWO Medic al WEEKS Branch CYANOCOBALA 2021-09 Yes [id number] INJECT 1ML [facility] MIN 1,000 1-30 INTRAMUSCU ity of mcg/mL 00:00: LARLY [place] injection 00 EVERY TWO Medic al WEEKS Branch CYANOCOBALA 2021-09 Yes [id number] INJECT 1ML [facility] MIN 1,000 1-30 INTRAMUSCU ity of mcg/mL 00:00: LARLY [place] injection 00 EVERY TWO Medic al WEEKS Branch CYANOCOBALA 2021-09 Yes [id number] INJECT 1ML [facility] MIN 1,000 1-30 INTRAMUSCU ity of mcg/mL 00:00: LARLY [place] injection 00 EVERY TWO Medic al WEEKS Branch CYANOCOBALA 2021-09 Yes [id number] INJECT 1ML [facility] MIN 1,000 1-30 INTRAMUSCU ity of mcg/mL 00:00: LARLY [place] injection 00 EVERY TWO Medic al WEEKS Branch CYANOCOBALA 2021-09 Yes [id number] INJECT 1ML [facility] MIN 1,000 1-30 INTRAMUSCU ity of mcg/mL 00:00: LARLY [place] injection 00 EVERY TWO Medic al WEEKS Branch CYANOCOBALA 2021-09 Yes [id number] INJECT 1ML [facility] MIN 1,000 1-30 INTRAMUSCU ity of mcg/mL 00:00: LARLY [place] injection 00 EVERY TWO Medic al WEEKS Branch CYANOCOBALA 2021-09 Yes [id number] INJECT 1ML [facility] MIN 1,000 1-30 INTRAMUSCU ity of mcg/mL 00:00: LARLY [place] injection 00 EVERY TWO Medic al WEEKS Branch CYANOCOBALA 2021-09 Yes [id number] INJECT 1ML [facility] MIN 1,000 1-30 INTRAMUSCU ity of mcg/mL 00:00: LARLY [place] injection 00 EVERY TWO Medic al WEEKS Branch CYANOCOBALA 2021-09 Yes [id number] INJECT 1ML [facility] MIN 1,000 1-30 INTRAMUSCU ity of mcg/mL 00:00: LARLY [place] injection 00 EVERY TWO Medic al WEEKS Branch CYANOCOBALA 2021-09 Yes [id number] INJECT 1ML [facility] MIN 1,000 1-30 INTRAMUSCU ity of mcg/mL 00:00: LARLY [place] injection 00 EVERY TWO Medic al WEEKS Branch CYANOCOBALA 2021-09 Yes [id number] INJECT 1ML [facility] MIN 1,000 1-30 INTRAMUSCU ity of mcg/mL 00:00: LARLY [place] injection 00 EVERY TWO Medic al WEEKS Branch CYANOCOBALA 2021-09 Yes [id number] INJECT 1ML [facility] MIN 1,000 1-30 INTRAMUSCU ity of mcg/mL 00:00: LARLY [place] injection 00 EVERY TWO Medic al WEEKS Branch CYANOCOBALA 2021-09 Yes [id number] INJECT 1ML [facility] MIN 1,000 1-30 INTRAMUSCU ity of mcg/mL 00:00: LARLY [place] injection 00 EVERY TWO Medic al WEEKS Branch CYANOCOBALA 2021-09 Yes [id number] INJECT 1ML [facility] MIN 1,000 1-30 INTRAMUSCU ity of mcg/mL 00:00: LARLY [place] injection 00 EVERY TWO Medic al WEEKS Branch CYANOCOBALA 2021-09 Yes [id number] INJECT 1ML [facility] MIN 1,000 1-30 INTRAMUSCU ity of mcg/mL 00:00: LARLY [place] injection 00 EVERY TWO Medic al WEEKS Branch CYANOCOBALA 2021-09 Yes [id number] INJECT 1ML [facility] MIN 1,000 1-30 INTRAMUSCU ity of mcg/mL 00:00: LARLY [place] injection 00 EVERY TWO Medic al WEEKS Branch CYANOCOBALA 2021-09 Yes [id number] INJECT 1ML [facility] MIN 1,000 1-30 INTRAMUSCU ity of mcg/mL 00:00: LARLY [place] injection 00 EVERY TWO Medic al WEEKS Branch CYANOCOBALA 2021-09 Yes [id number] INJECT 1ML [facility] MIN 1,000 1-30 INTRAMUSCU ity of mcg/mL 00:00: LARLY [place] injection 00 EVERY TWO Medic al WEEKS Branch CYANOCOBALA 2021-09- No [id number] INJECT 1ML [facility] MIN 1,000 1-30 02-07 INTRAMUSCU ity of mcg/mL 00:00: 00:00 LARLY [place] injection 00 :00 EVERY TWO Medic al WEEKS Branch CYANOCOBALA 2021-09- No [id number] INJECT 1ML [facility] MIN 1,000 1-30 02-07 INTRAMUSCU ity of mcg/mL 00:00: 00:00 LARLY [place] injection 00 :00 EVERY TWO Medic al WEEKS Branch CYANOCOBALA 2021-09- No [id number] INJECT 1ML [facility] MIN 1,000 1-30 02-07 INTRAMUSCU ity of mcg/mL 00:00: 00:00 LARLY [place] injection 00 :00 EVERY TWO Medic al WEEKS Branch CYANOCOBALA 2021-09- No [id number] INJECT 1ML [facility] MIN 1,000 1-30 02-07 INTRAMUSCU ity of mcg/mL 00:00: 00:00 LARLY [place] injection 00 :00 EVERY TWO Medic al WEEKS Branch CYANOCOBALA 2021-09- No [id number] INJECT 1ML [facility] MIN 1,000 1-30 02-07 INTRAMUSCU ity of mcg/mL 00:00: 00:00 LARLY [place] injection 00 :00 EVERY TWO Medic al WEEKS Branch CYANOCOBALA 2021-09- No [id number] INJECT 1ML [facility] MIN 1,000 1-30 02-07 INTRAMUSCU ity of mcg/mL 00:00: 00:00 LARLY [place] injection 00 :00 EVERY TWO Medic al WEEKS Branch CYANOCOBALA 2021-09- No [id number] INJECT 1ML [facility] MIN 1,000 1-30 02-07 INTRAMUSCU ity of mcg/mL 00:00: 00:00 LARLY [place] injection 00 :00 EVERY TWO Medic al WEEKS Branch CYANOCOBALA 2021-09- No [id number] INJECT 1ML [facility] MIN 1,000 1-30 02-07 INTRAMUSCU ity of mcg/mL 00:00: 00:00 LARLY [place] injection 00 :00 EVERY TWO Medic al WEEKS Branch CYANOCOBALA 2021-09- No [id number] INJECT 1ML [facility] MIN 1,000 1-30 02-07 INTRAMUSCU ity of mcg/mL 00:00: 00:00 LARLY [place] injection 00 :00 EVERY TWO Medic al WEEKS Branch CYANOCOBALA 2021-09- No [id number] INJECT 1ML [facility] MIN 1,000 1-30 02-07 INTRAMUSCU ity of mcg/mL 00:00: 00:00 LARLY [place] injection 00 :00 EVERY TWO Medic al WEEKS Branch CYANOCOBALA 2021-09- No [id number] INJECT 1ML [facility] MIN 1,000 1-30 02-07 INTRAMUSCU ity of mcg/mL 00:00: 00:00 LARLY [place] injection 00 :00 EVERY TWO Medic al WEEKS Branch CYANOCOBALA 2021-09- No [id number] INJECT 1ML [facility] MIN 1,000 1-30 02-07 INTRAMUSCU ity of mcg/mL 00:00: 00:00 LARLY [place] injection 00 :00 EVERY TWO Medic al WEEKS Branch CYANOCOBALA 2021-09- No [id number] INJECT 1ML [facility] MIN 1,000 1-30 02-07 INTRAMUSCU ity of mcg/mL 00:00: 00:00 LARLY [place] injection 00 :00 EVERY TWO Medic al WEEKS Branch CYANOCOBALA 2021-09- No [id number] INJECT 1ML [facility] MIN 1,000 1-30 02-07 [...] 1-22 TABLET BY ity of 00:00: MOUTH [place] 00 EVERY 12 Medical HOURS Branch NEEDED ondansetron 2022-1 Yes TAKE 1 Univ ers 4 mg tablet 1-22 TABLET BY ity of 00:00: MOUTH [place] 00 EVERY 12 Medical HOURS Branch NEEDED ondansetron 2022-1 Yes TAKE 1 Univ ers 4 mg tablet 1-22 TABLET BY ity of 00:00: MOUTH [place] 00 EVERY 12 Medical HOURS Branch NEEDED ondansetron 2-1 Yes TAKE 1 Univ ers 4 mg tablet 1-22 TABLET BY ity of 00:00: MOUTH [place] EVERY 12 Medical HOURS Branch NEEDED ondansetron 2-1 Yes TAKE 1 Univ ers 4 mg tablet 1-22 TABLET BY ity of 00:00: MOUTH [place] 00 EVERY 12 Medical HOURS Branch NEEDED ondansetron 2-1 Yes TAKE 1 Univ ers 4 mg tablet 1-22 TABLET BY ity of 00:00: MOUTH [place] 00 EVERY 12 Medical HOURS Branch NEEDED naproxen 2-1 Yes 500mg Take 500 Univ ers 500 mg 1-18 mg by ity of tablet 00:00: mouth in [place] 00 the Medical morning Branch and 500 mg in the evening. Take with meals. naproxen 2-1 Yes 500mg Take 500 Univ ers 500 mg 1-18 mg by ity of tablet 00:00: mouth in [place] 00 the Medical morning Branch and 500 mg in the evening. Take with meals. naproxen 2022-1 Yes 500mg Take 500 Univ ers 500 mg 1-18 mg by ity of tablet 00:00: mouth in [place] 00 the Medical morning Branch and 500 mg in the evening. Take with meals. naproxen 2-1 Yes 500mg Take 500 Univ ers 500 mg 1-18 mg by ity of tablet 00:00: mouth in [place] 00 the Medical morning Branch and 500 mg in the evening. Take with meals. naproxen 2021-09 Yes 500mg Take 500 Univ ers 500 mg 1-18 mg by ity of tablet 00:00: mouth in [place] 00 the Medical morning Branch and 500 mg in the evening. Take with meals. naproxen 2021-09 Yes 500mg Take 500 Univ ers 500 mg 1-18 mg by ity of tablet 00:00: mouth in [place] 00 the [facility] morning [place] and 500 mg in the evening. Take with meals. naproxen 2021-09 Yes 500mg Take 500 Univ ers 500 mg 1-18 mg by ity of tablet 00:00: mouth in [place] 00 the Medical morning Branch and 500 mg in the evening. Take with meals. naproxen 2021-2022- No 500mg Take 500 Uni vers 500 mg 1-18 01-23 mg by ity of tablet 00:00: 00:00 mouth in [place] 00 :00 the [facility] morning [place] and 500 mg in the evening. Take with meals. naproxen 2021-09- No 500mg Take 500 Uni vers 500 mg 1-18 01-23 mg by ity of tablet 00:00: 00:00 mouth in [place] 00 :00 the [facility] morning [place] and 500 mg in the evening. Take with meals. naproxen 2021-09- No 500mg Take 500 Uni vers 500 mg 1-18 01-23 mg by ity of tablet 00:00: 00:00 mouth in [place] 00 :00 the [facility] and 500 mg in the evening. Take with meals. naproxen 2021-09- No 500mg Take 500 Uni vers 500 mg 1-18 01-23 mg by ity of tablet 00:00: 00:00 mouth in [place] 00 :00 the [facility] morning [place] and 500 mg in the evening. Take with meals. naproxen 2021-09- No 500mg Take 500 Uni vers 500 mg 1-18 01-23 mg by ity of tablet 00:00: 00:00 mouth in [place] 00 :00 the [facility] and 500 mg in the evening. Take with meals. levothyroxi 2021-09 Yes [id number] 50ug Take 1 Univers ne 50 mcg 1-03 tablet by ity o f tablet 00:00: mouth [place] 00 every Medical morning. Branch levothyroxi 2021-09 Yes [id number] 50ug Take 1 [facility] ne 50 mcg 1-03 tablet by ity o f tablet 00:00: mouth [place] 00 every Medical morning. Branch levothyroxi 2021-09 Yes [id number] 50ug Take 1 [facility] ne 50 mcg 1-03 tablet by ity o f tablet 00:00: mouth [place] 00 every Medical morning. Branch levothyroxi 2021-09 Yes [id number] 50ug Take 1 [facility] ne 50 mcg 1-03 tablet by ity o f tablet 00:00: mouth [place] 00 every Medical morning. Branch levothyroxi 2021-09 Yes [id number] 50ug Take 1 [facility] ne 50 mcg 1-03 tablet by ity o f tablet 00:00: mouth [place] 00 every Medical morning. Branch levothyroxi 2021-09 Yes [id number] 50ug Take 1 Univers ne 50 mcg 1-03 tablet by ity o f tablet 00:00: mouth [place] 00 every Medical morning. Branch levothyroxi 2021-09 Yes [id number] 50ug Take 1 [facility] ne 50 mcg 1-03 tablet by ity o f tablet 00:00: mouth [place] 00 every Medical morning. Branch levothyroxi 2021-09 Yes [id number] 50ug Take 1 Univers ne 50 mcg 1-03 tablet by ity o f tablet 00:00: mouth [place] 00 every Medical morning. Branch levothyroxi 2021-09 Yes [id number] 50ug Take 1 [facility] ne 50 mcg 1-03 tablet by ity o f tablet 00:00: mouth [place] 00 every Medical morning. Branch levothyroxi 2021-09 Yes [id number] 50ug Take 1 Univers ne 50 mcg 1-03 tablet by ity o f tablet 00:00: mouth [place] 00 every Medical morning. Branch levothyroxi 2021-09 Yes [id number] 50ug Take 1 Univers ne 50 mcg 1-03 tablet by ity o f tablet 00:00: mouth [place] 00 every Medical morning. Branch levothyroxi 2021-09 Yes [id number] 50ug Take 1 Univers ne 50 mcg 1-03 tablet by ity o f tablet 00:00: mouth [place] 00 every Medical morning. Branch levothyroxi 2021-09 Yes [id number] 50ug Take 1 [facility] ne 50 mcg 1-03 tablet by ity o f tablet 00:00: mouth [place] 00 every Medical morning. Branch levothyroxi 2021-09 Yes [id number] 50ug Take 1 Univers ne 50 mcg 1-03 tablet by ity o f tablet 00:00: mouth [place] 00 every Medical morning. Branch levothyroxi 2021-09 Yes [id number] 50ug Take 1 [facility] ne 50 mcg 1-03 tablet by ity o f tablet 00:00: mouth [place] 00 every Medical morning. Branch levothyroxi 2021-09 Yes [id number] 50ug Take 1 Univers ne 50 mcg 1-03 tablet by ity o f tablet 00:00: mouth [place] 00 every Medical morning. Branch levothyroxi 2021-09 Yes [id number] 50ug Take 1 [facility] ne 50 mcg 1-03 tablet by ity o f tablet 00:00: mouth [place] 00 every Medical morning. Branch levothyroxi 2021-09 Yes [id number] 50ug Take 1 Univers ne 50 mcg 1-03 tablet by ity o f tablet 00:00: mouth [place] 00 every Medical morning. Branch levothyroxi 2021-09 Yes [id number] 50ug Take 1 [facility] ne 50 mcg 1-03 tablet by ity o f tablet 00:00: mouth [place] 00 every Medical morning. Branch levothyroxi 2021-09 Yes [id number] 50ug Take 1 [facility] ne 50 mcg 1-03 tablet by ity o f tablet 00:00: mouth [place] 00 every Medical morning. Branch levothyroxi 2021-09 Yes [id number] 50ug Take 1 [facility] ne 50 mcg 1-03 tablet by ity o f tablet 00:00: mouth [place] 00 every Medical morning. Branch levothyroxi 2021-09 Yes [id number] 50ug Take 1 [facility] ne 50 mcg 1-03 tablet by ity o f tablet 00:00: mouth [place] 00 every Medical morning. Branch levothyroxi 2021-09 Yes [id number] 50ug Take 1 [facility] ne 50 mcg 1-03 tablet by ity o f tablet 00:00: mouth [place] 00 every Medical morning. Branch levothyroxi 2021-09 Yes [id number] 50ug Take 1 Univers ne 50 mcg 1-03 tablet by ity o f tablet 00:00: mouth [place] 00 every Medical morning. Branch levothyroxi 2021-09 Yes [id number] 50ug Take 1 [facility] ne 50 mcg 1-03 tablet by ity o f tablet 00:00: mouth [place] 00 every Medical morning. Branch levothyroxi 2021-09 Yes [id number] 50ug Take 1 [facility] ne 50 mcg 1-03 tablet by ity o f tablet 00:00: mouth [place] 00 every Medical morning. Branch levothyroxi 2021-09 Yes [id number] 50ug Take 1 [facility] ne 50 mcg 1-03 tablet by ity o f tablet 00:00: mouth [place] 00 every Medical morning. Branch levothyroxi 2021-09 Yes [id number] 50ug Take 1 [facility] ne 50 mcg 1-03 tablet by ity o f tablet 00:00: mouth [place] 00 every Medical morning. Branch levothyroxi 2021-09 Yes [id number] 50ug Take 1 [facility] ne 50 mcg 1-03 tablet by ity o f tablet 00:00: mouth [place] 00 every Medical morning. Branch levothyroxi 2021-09 Yes [id number] 50ug Take 1 [facility] ne 50 mcg 1-03 tablet by ity o f tablet 00:00: mouth [place] 00 every Medical morning. Branch levothyroxi 2021-09 Yes [id number] 50ug Take 1 [facility] ne 50 mcg 1-03 tablet by ity o f tablet 00:00: mouth [place] 00 every Medical morning. Branch levothyroxi 2021-09 Yes [id number] 50ug Take 1 [facility] ne 50 mcg 1-03 tablet by ity o f tablet 00:00: mouth [place] 00 every Medical morning. Branch levothyroxi 2021-09 Yes [id number] 50ug Take 1 [facility] ne 50 mcg 1-03 tablet by ity o f tablet 00:00: mouth [place] 00 every Medical morning. Branch levothyroxi 2021-09 Yes [id number] 50ug Take 1 [facility] ne 50 mcg 1-03 tablet by ity o f tablet 00:00: mouth [place] 00 every Medical morning. Branch levothyroxi 2021-09 Yes [id number] 50ug Take 1 [facility] ne 50 mcg 1-03 tablet by ity o f tablet 00:00: mouth [place] 00 every Medical morning. Branch levothyroxi 2021-09 Yes [id number] 50ug Take 1 [facility] ne 50 mcg 1-03 tablet by ity o f tablet 00:00: mouth [place] 00 every Medical morning. Branch levothyroxi 2021-09 Yes [id number] 50ug Take 1 [facility] ne 50 mcg 1-03 tablet by ity o f tablet 00:00: mouth [place] 00 every Medical morning. Branch levothyroxi 2021-09 Yes [id number] 50ug Take 1 [facility] ne 50 mcg 1-03 tablet by ity o f tablet 00:00: mouth [place] 00 every Medical morning. Branch levothyroxi 2021-09 Yes [id number] 50ug Take 1 [facility] ne 50 mcg 1-03 tablet by ity o f tablet 00:00: mouth [place] 00 every Medical morning. Branch levothyroxi 2021-09 Yes [id number] 50ug Take 1 [facility] ne 50 mcg 1-03 tablet by ity o f tablet 00:00: mouth [place] 00 every Medical morning. Branch levothyroxi 2021-09 Yes [id number] 50ug Take 1 [facility] ne 50 mcg 1-03 tablet by ity o f tablet 00:00: mouth [place] 00 every Medical morning. Branch levothyroxi 2021-09 Yes [id number] 50ug Take 1 [facility] ne 50 mcg 1-03 tablet by ity o f tablet 00:00: mouth [place] 00 every Medical morning. Branch levothyroxi 2021-09 Yes [id number] 50ug Take 1 [facility] ne 50 mcg 1-03 tablet by ity o f tablet 00:00: mouth [place] 00 every Medical morning. Branch levothyroxi 2021-09 Yes [id number] 50ug Take 1 [facility] ne 50 mcg 1-03 tablet by ity o f tablet 00:00: mouth [place] 00 every Medical morning. Branch levothyroxi 2021-09 Yes [id number] 50ug Take 1 [facility] ne 50 mcg 1-03 tablet by ity o f tablet 00:00: mouth [place] 00 every Medical morning. Branch levothyroxi 2021-09 Yes [id number] 50ug Take 1 [facility] ne 50 mcg 1-03 tablet by ity o f tablet 00:00: mouth [place] 00 every Medical morning. Branch levothyroxi 2021-09 Yes [id number] 50ug Take 1 [facility] ne 50 mcg 1-03 tablet by ity o f tablet 00:00: mouth [place] 00 every Medical morning. Branch levothyroxi 2021-09 Yes [id number] 50ug Take 1 [facility] ne 50 mcg 1-03 tablet by ity o f tablet 00:00: mouth [place] 00 every Medical morning. Branch levothyroxi 2021-09 Yes [id number] 50ug Take 1 [facility] ne 50 mcg 1-03 tablet by ity o f tablet 00:00: mouth [place] 00 every Medical morning. Branch levothyroxi 2021-09 Yes [id number] 50ug Take 1 [facility] ne 50 mcg 1-03 tablet by ity o f tablet 00:00: mouth [place] 00 every Medical morning. Branch levothyroxi 2021-09 Yes [id number] 50ug Take 1 [facility] ne 50 mcg 1-03 tablet by ity o f tablet 00:00: mouth [place] 00 every Medical morning. Branch levothyroxi 2021-09 Yes [id number] 50ug Take 1 [facility] ne 50 mcg 1-03 tablet by ity o f tablet 00:00: mouth [place] 00 every Medical morning. Branch levothyroxi 2021-09 Yes [id number] 50ug Take 1 [facility] ne 50 mcg 1-03 tablet by ity o f tablet 00:00: mouth [place] 00 every Medical morning. Branch levothyroxi 2021-09 Yes [id number] 50ug Take 1 [facility] ne 50 mcg 1-03 tablet by ity o f tablet 00:00: mouth [place] 00 every Medical morning. Branch levothyroxi 2021-09 Yes [id number] 50ug Take 1 Univers ne 50 mcg 1-03 tablet by ity o f tablet 00:00: mouth [place] 00 every Medical morning. Branch levothyroxi 2021-09 Yes [id number] 50ug Take 1 [facility] ne 50 mcg 1-03 tablet by ity o f tablet 00:00: mouth [place] 00 every Medical morning. Branch levothyroxi 2021-09 Yes [id number] 50ug Take 1 [facility] ne 50 mcg 1-03 tablet by ity o f tablet 00:00: mouth [place] 00 every Medical morning. Branch levothyroxi 2021-09 Yes [id number] 50ug Take 1 [facility] ne 50 mcg 1-03 tablet by ity o f tablet 00:00: mouth [place] 00 every Medical morning. Branch levothyroxi 2021-09 Yes [id number] 50ug Take 1 [facility] ne 50 mcg 1-03 tablet by ity o f tablet 00:00: mouth [place] 00 every Medical morning. Branch levothyroxi 2021-09 Yes [id number] 50ug Take 1 [facility] ne 50 mcg 1-03 tablet by ity o f tablet 00:00: mouth [place] 00 every Medical morning. Branch levothyroxi 2021-09 Yes [id number] 50ug Take 1 [facility] ne 50 mcg 1-03 tablet by ity o f tablet 00:00: mouth [place] 00 every Medical morning. Branch levothyroxi 2021-09 Yes [id number] 50ug Take 1 [facility] ne 50 mcg 1-03 tablet by ity o f tablet 00:00: mouth [place] 00 every Medical morning. Branch levothyroxi 2021-09 Yes [id number] 50ug Take 1 [facility] ne 50 mcg 1-03 tablet by ity o f tablet 00:00: mouth [place] 00 every Medical morning. Branch levothyroxi 2021-09 Yes [id number] 50ug Take 1 [facility] ne 50 mcg 1-03 tablet by ity o f tablet 00:00: mouth [place] 00 every Medical morning. Branch levothyroxi 2021-09 Yes [id number] 50ug Take 1 [facility] ne 50 mcg 1-03 tablet by ity o f tablet 00:00: mouth [place] 00 every Medical morning. Branch levothyroxi 2021-09 Yes [id number] 50ug Take 1 [facility] ne 50 mcg 1-03 tablet by ity o f tablet 00:00: mouth [place] 00 every Medical morning. Branch levothyroxi 2021-09 Yes [id number] 50ug Take 1 [facility] ne 50 mcg 1-03 tablet by ity o f tablet 00:00: mouth [place] 00 every Medical morning. Branch levothyroxi 2021-09 Yes [id number] 50ug Take 1 [facility] ne 50 mcg 1-03 tablet by ity o f tablet 00:00: mouth [place] 00 every Medical morning. Branch levothyroxi 2021-09 Yes [id number] 50ug Take 1 [facility] ne 50 mcg 1-03 tablet by ity o f tablet 00:00: mouth [place] 00 every Medical morning. Branch levothyroxi 2021-09- No [id number] 50ug Take 1 [facility] ne 50 mcg 1-03 04-10 tablet by ity of tablet 00:00: 00:00 mouth [place] 00 :00 every Medical morning. [place] DOCUSATE 2021-09 Yes Take by [facility] SODIUM 1-01 mouth. ity of (COLACE 08:06: [place] ORAL) 37 Medical [place] DOCUSATE 2021-09 Yes Take by [facility] [...] of (COLACE 08:06: [place] ORAL) Medical Branch [facility] of (COLACE 08:06: [place] ORAL) Medical Branch [facility] 2021-09 [facility] mouth. [facility] of (COLACE 08:06: [place] ORAL) Medical Branch diltiazem 2021-09 Yes [id number] 120mg Take 1 [facility] nivers 120 mg 24 - capsule by ity of hr capsule 00:00: mouth in [place] as 00 the Medical morning Branch and 1 capsule in the evening. fluticasone 2021-09 Yes [id number] 2{puff} Inhale 2 [facility] propionate 1-01 Puffs ity of (FLOVENT 00:00: every 12 [place] HFA) 110 00 (twelve) Medical mcg/actuati hours. Branch on inhaler Rinse mouth after each use. levothyroxi 2021-09 Yes [id number] 50ug Take 1 [facility] ne 50 mcg 1-01 tablet by ity o f tablet 00:00: mouth [place] 00 every Medical morning. Branch metformin 2021-09 Yes [id number] 500mg Take 1 U nivers ER 500 mg 1-01 tablet by ity o f 24 hr 00:00: mouth [place] tablet 00 daily with Medical breakfast. Branch pantoprazol 2021-09 Yes [id number] 40mg Take 1 [facility] e 40 mg EC 1-01 tablet by ity of tablet 00:00: mouth in [place] 00 the Medical morning. Branch pregabalin 2021-09 Yes [id number] 150mg Take 1 [facility] 150 mg 1-01 capsule by ity of capsule 00:00: mouth in [place] 00 the Medical morning Branch and 1 capsule at noon and 1 capsule in the evening. rosuvastati 2021-09 Yes [id number] 10mg Take 1 [facility] n 10 mg 1-01 tablet by ity of tablet 00:00: mouth at [place] 00 bedtime. Medical Branch SUMAtriptan 2021-09 Yes [id number] 50mg Take 1 [facility] 50 mg 1-01 tablet by ity of tablet 00:00: mouth as [place] 00 needed for Medical Migraine. Branch diltiazem 2021-09 Yes [id number] 120mg Take 1 [facility] nivers 120 mg 24 1-01 capsule by ity of hr capsule 00:00: mouth in [place] as 00 the Medical morning Branch and 1 capsule in the evening. fluticasone 2021-09 Yes [id number] 2{puff} Inhale 2 [facility] propionate 1-01 Puffs ity of (FLOVENT 00:00: every 12 [place] HFA) 110 00 (twelve) Medical mcg/actuati hours. Branch on inhaler Rinse mouth after each use. levothyroxi 2021-09 Yes [id number] 50ug Take 1 [facility] ne 50 mcg 1-01 tablet by ity o f tablet 00:00: mouth [place] 00 every Medical morning. Branch metformin 2021-09 Yes [id number] 500mg Take 1 [facility] nivers ER 500 mg 1-01 tablet by ity o f 24 hr 00:00: mouth [place] tablet 00 daily with Medical breakfast. Branch pantoprazol 2021-09 Yes [id number] 40mg Take 1 [facility] e 40 mg EC 1-01 tablet by ity of tablet 00:00: mouth in [place] 00 the Medical morning. Branch pregabalin 2021-09 Yes [id number] 150mg Take 1 [facility] 150 mg 1-01 capsule by ity of capsule 00:00: mouth in [place] 00 the Medical morning Branch and 1 capsule at noon and 1 capsule in the evening. rosuvastati 2021-09 Yes [id number] 10mg Take 1 [facility] n 10 mg 1-01 tablet by ity of tablet 00:00: mouth at [place] 00 bedtime. Medical Branch SUMAtriptan 2021-09 Yes [id number] 50mg Take 1 [facility] 50 mg 1-01 tablet by ity of tablet 00:00: mouth as [place] 00 needed for Medical Migraine. Branch diltiazem 2021-09 Yes [id number] 120mg Take 1 [facility] nivers 120 mg 24 1-01 capsule by ity of hr capsule 00:00: mouth in [place] as 00 the Medical morning Branch and 1 capsule in the evening. fluticasone 2021-09 Yes [id number] 2{puff} Inhale 2 [facility] propionate 1-01 Puffs ity of (FLOVENT 00:00: every 12 [place] HFA) 110 00 (twelve) Medical mcg/actuati hours. Branch on inhaler Rinse mouth after each use. metformin 2021-09 Yes [id number] 500mg Take 1 U nivers ER 500 mg 1-01 tablet by ity o f 24 hr 00:00: mouth [place] tablet 00 daily with Medical breakfast. Branch pantoprazol 2021-09 Yes [id number] 40mg Take 1 [facility] e 40 mg EC 1-01 tablet by ity of tablet 00:00: mouth in [place] 00 the Medical morning. Branch pregabalin 2021-09 Yes [id number] 150mg Take 1 [facility] 150 mg 1-01 capsule by ity of capsule 00:00: mouth in [place] 00 the Medical morning Branch and 1 capsule at noon and 1 capsule in the evening. rosuvastati 2021-09 Yes [id number] 10mg Take 1 [facility] n 10 mg 1-01 tablet by ity of tablet 00:00: mouth at [place] [address] bedtime. Medical Branch SUMAtriptan 2021-09 Yes [id number] 50mg Take 1 [facility] 50 mg 1-01 tablet by ity of tablet 00:00: mouth as [place] 00 needed for Medical Migraine. Branch diltiazem 2021-09 Yes [id number] 120mg Take 1 [facility] nivers 120 mg 24 1-01 capsule by ity of hr capsule 00:00: mouth in [place] as 00 the Medical morning Branch and 1 capsule in the evening. fluticasone 2021-09 Yes [id number] 2{puff} Inhale 2 [facility] propionate 1-01 Puffs ity of (FLOVENT 00:00: every 12 [place] HFA) 110 00 (twelve) Medical mcg/actuati hours. Branch on inhaler Rinse mouth after each use. metformin 2021-09 Yes [id number] 500mg Take 1 U nivers ER 500 mg 1-01 tablet by ity o f 24 hr 00:00: mouth [place] tablet 00 daily with Medical breakfast. Branch pantoprazol 2021-09 Yes [id number] 40mg Take 1 [facility] e 40 mg EC 1-01 tablet by ity of tablet 00:00: mouth in [place] 00 the Medical morning. Branch pregabalin 2021-09 Yes [id number] 150mg Take 1 [facility] 150 mg 1-01 capsule by ity of capsule 00:00: mouth in [place] 00 the Medical morning Branch and 1 capsule at noon and 1 capsule in the evening. rosuvastati 2021-09 Yes [id number] 10mg Take 1 [facility] n 10 mg 1-01 tablet by ity of tablet 00:00: mouth at [place] 00 bedtime. Medical Branch SUMAtriptan 2021-09 Yes [id number] 50mg Take 1 [facility] 50 mg 1-01 tablet by ity of tablet 00:00: mouth as [place] 00 needed for Medical Migraine. Branch diltiazem 2021-09 Yes [id number] 120mg Take 1 [facility] nivers 120 mg 24 1-01 capsule by ity of hr capsule 00:00: mouth in [place] as 00 the Medical morning Branch and 1 capsule in the evening. fluticasone 2021-09 Yes [id number] 2{puff} Inhale 2 [facility] propionate 1-01 Puffs ity of (FLOVENT 00:00: every 12 [place] HFA) 110 00 (twelve) Medical mcg/actuati hours. Branch on inhaler Rinse mouth after each use. metformin 2021-09 Yes [id number] 500mg Take 1 U nivers ER 500 mg 1-01 tablet by ity o f 24 hr 00:00: mouth [place] tablet 00 daily with Medical breakfast. Branch pantoprazol 2021-09 Yes [id number] 40mg Take 1 [facility] e 40 mg EC 1-01 tablet by ity of tablet 00:00: mouth in [place] 00 the Medical morning. Branch pregabalin 2021-09 Yes [id number] 150mg Take 1 [facility] 150 mg 1-01 capsule by ity of capsule 00:00: mouth in [place] 00 the Medical morning Branch and 1 capsule at noon and 1 capsule in the evening. rosuvastati 2021-09 Yes [id number] 10mg Take 1 [facility] n 10 mg 1-01 tablet by ity of tablet 00:00: mouth at [place] 00 bedtime. Medical Branch SUMAtriptan 2021-09 Yes [id number] 50mg Take 1 [facility] 50 mg 1-01 tablet by ity of tablet 00:00: mouth as [place] 00 needed for Medical Migraine. Branch diltiazem 2021-09 Yes [id number] 120mg Take 1 [facility] nivers 120 mg 24 1-01 capsule by ity of hr capsule 00:00: mouth in [facility] as 00 the Medical morning Branch and 1 capsule in the evening. fluticasone 2021-09 Yes [id number] 2{puff} Inhale 2 [facility] propionate 1-01 Puffs ity of (FLOVENT 00:00: every 12 [place] HFA) 110 00 (twelve) Medical mcg/actuati hours. Branch on inhaler Rinse mouth after each use. metformin 2021-09 Yes [id number] 500mg Take 1 U nivers ER 500 mg 1-01 tablet by ity o f 24 hr 00:00: mouth [place] tablet 00 daily with Medical breakfast. Branch pantoprazol 2021-09 Yes [id number] 40mg Take 1 [facility] e 40 mg EC 1-01 tablet by ity of tablet 00:00: mouth in [place] 00 the Medical morning. Branch pregabalin 2021-09 Yes [id number] 150mg Take 1 [facility] 150 mg 1-01 capsule by ity of capsule 00:00: mouth in [place] 00 the Medical morning Branch and 1 capsule at noon and 1 capsule in the evening. rosuvastati 2021-09 Yes [id number] 10mg Take 1 [facility] n 10 mg 1-01 tablet by ity of tablet 00:00: mouth at [place] [address] bedtime. Medical Branch SUMAtriptan 2021-09 Yes [id number] 50mg Take 1 [facility] 50 mg 1-01 tablet by ity of tablet 00:00: mouth as [place] 00 needed for Medical Migraine. Branch diltiazem 2021-09 Yes [id number] 120mg Take 1 [facility] nivers 120 mg 24 1-01 capsule by ity of hr capsule 00:00: mouth in [place] as 00 the Medical morning Branch and 1 capsule in the evening. fluticasone 2021-09 Yes [id number] 2{puff} Inhale 2 [facility] propionate 1-01 Puffs ity of (FLOVENT 00:00: every 12 [place] HFA) 110 00 (twelve) Medical mcg/actuati hours. Branch on inhaler Rinse mouth after each use. metformin 2021-09 Yes [id number] 500mg Take 1 U nivers ER 500 mg 1-01 tablet by ity o f 24 hr 00:00: mouth [place] tablet 00 daily with Medical breakfast. Branch pantoprazol 2021-09 Yes [id number] 40mg Take 1 [facility] e 40 mg EC 1-01 tablet by ity of tablet 00:00: mouth in [place] 00 the Medical morning. Branch pregabalin 2021-09 Yes [id number] 150mg Take 1 [facility] 150 mg 1-01 capsule by ity of capsule 00:00: mouth in [place] 00 the Medical morning Branch and 1 capsule at noon and 1 capsule in the evening. rosuvastati 2021-09 Yes [id number] 10mg Take 1 [facility] n 10 mg 1-01 tablet by ity of tablet 00:00: mouth at [place] 00 bedtime. Medical Branch SUMAtriptan 2021-09 Yes [id number] 50mg Take 1 [facility] 50 mg 1-01 tablet by ity of tablet 00:00: mouth as [place] 00 needed for Medical Migraine. Branch diltiazem 2021-09 Yes [id number] 120mg Take 1 U nivers 120 mg 24 1-01 capsule by ity of hr capsule 00:00: mouth in [facility] as 00 the Medical morning Branch and 1 capsule in the evening. fluticasone 2021-09 Yes [id number] 2{puff} Inhale 2 [facility] propionate 1-01 Puffs ity of (FLOVENT 00:00: every 12 [place] HFA) 110 00 (twelve) Medical mcg/actuati hours. Branch on inhaler Rinse mouth after each use. metformin 2021-09 Yes [id number] 500mg Take 1 U nivers ER 500 mg 1-01 tablet by ity o f 24 hr 00:00: mouth [place] tablet 00 daily with Medical breakfast. Branch pantoprazol 2021-09 Yes [id number] 40mg Take 1 [facility] e 40 mg EC 1-01 tablet by ity of tablet 00:00: mouth in [place] 00 the Medical morning. Branch pregabalin 2021-09 Yes [id number] 150mg Take 1 [facility] 150 mg 1-01 capsule by ity of capsule 00:00: mouth in [place] 00 the Medical morning Branch and 1 capsule at noon and 1 capsule in the evening. rosuvastati 2021-09 Yes [id number] 10mg Take 1 [facility] n 10 mg 1-01 tablet by ity of tablet 00:00: mouth at [place] 00 bedtime. Medical Branch SUMAtriptan 2021-09 Yes [id number] 50mg Take 1 [facility] 50 mg 1-01 tablet by ity of tablet 00:00: mouth as [place] 00 needed for Medical Migraine. Branch diltiazem 2021-09 Yes [id number] 120mg Take 1 U nivers 120 mg 24 1-01 capsule by ity of hr capsule 00:00: mouth in [facility] as 00 the Medical morning Branch and 1 capsule in the evening. fluticasone 2021-09 Yes [id number] 2{puff} Inhale 2 [facility] propionate 1-01 Puffs ity of (FLOVENT 00:00: every 12 [place] HFA) 110 00 (twelve) Medical mcg/actuati hours. Branch on inhaler Rinse mouth after each use. metformin 2021-09 Yes [id number] 500mg Take 1 U nivers ER 500 mg 1-01 tablet by ity o f 24 hr 00:00: mouth [place] tablet 00 daily with Medical breakfast. Branch pantoprazol 2021-09 Yes [id number] 40mg Take 1 [facility] e 40 mg EC 1-01 tablet by ity of tablet 00:00: mouth in [place] 00 the Medical morning. Branch pregabalin 2021-09 Yes [id number] 150mg Take 1 [facility] 150 mg 1-01 capsule by ity of capsule 00:00: mouth in [place] 00 the Medical morning Branch and 1 capsule at noon and 1 capsule in the evening. rosuvastati 2021-09 Yes [id number] 10mg Take 1 [facility] n 10 mg 1-01 tablet by ity of tablet 00:00: mouth at [place] 00 bedtime. Medical Branch SUMAtriptan 2021-09 Yes [id number] 50mg Take 1 [facility] 50 mg 1-01 tablet by ity of tablet 00:00: mouth as [place] 00 needed for Medical Migraine. Branch diltiazem 2021-09 Yes [id number] 120mg Take 1 U nivers 120 mg 24 1-01 capsule by ity of hr capsule 00:00: mouth in [place] as 00 the Medical morning Branch and 1 capsule in the evening. fluticasone 2021-09 Yes [id number] 2{puff} Inhale 2 [facility] propionate 1-01 Puffs ity of (FLOVENT 00:00: every 12 [facility]) 110 00 (twelve) Medical mcg/actuati hours. Branch on inhaler Rinse mouth after each use. metformin 2021-09 Yes [id number] 500mg Take 1 U nivers ER 500 mg 1-01 tablet by ity o f 24 hr 00:00: mouth [place] tablet 00 daily with Medical breakfast. Branch pantoprazol 2021-09 Yes [id number] 40mg Take 1 [facility] e 40 mg EC 1-01 tablet by ity of tablet 00:00: mouth in [place] 00 the Medical morning. Branch pregabalin 2021-09 Yes [id number] 150mg Take 1 [facility] 150 mg 1-01 capsule by ity of capsule 00:00: mouth in [place] 00 the Medical morning Branch and 1 capsule at noon and 1 capsule in the evening. rosuvastati 2021-09 Yes [id number] 10mg Take 1 [facility] n 10 mg 1-01 tablet by ity of tablet 00:00: mouth at [place] [address] bedtime. Medical Branch SUMAtriptan 2021-09 Yes [id number] 50mg Take 1 [facility] 50 mg 1-01 tablet by ity of tablet 00:00: mouth as [place] 00 needed for Medical Migraine. Branch diltiazem 2021-09 Yes [id number] 120mg Take 1 U nivers 120 mg 24 1-01 capsule by ity of hr capsule 00:00: mouth in [place] as 00 the Medical morning Branch and 1 capsule in the evening. fluticasone 2021-09 Yes [id number] 2{puff} Inhale 2 [facility] propionate 1-01 Puffs ity of (FLOVENT 00:00: every 12 [place] HFA) 110 00 (twelve) Medical mcg/actuati hours. Branch on inhaler Rinse mouth after each use. metformin 2021-09 Yes [id number] 500mg Take 1 U nivers ER 500 mg 1-01 tablet by ity o f 24 hr 00:00: mouth [place] tablet 00 daily with Medical breakfast. Branch pantoprazol 2021-09 Yes [id number] 40mg Take 1 [facility] e 40 mg EC 1-01 tablet by ity of tablet 00:00: mouth in [place] 00 the Medical morning. Branch pregabalin 2021-09 Yes [id number] 150mg Take 1 [facility] 150 mg 1-01 capsule by ity of capsule 00:00: mouth in [place] 00 the Medical morning Branch and 1 capsule at noon and 1 capsule in the evening. rosuvastati 2021-09 Yes [id number] 10mg Take 1 [facility] n 10 mg 1-01 tablet by ity of tablet 00:00: mouth at [place] [address] bedtime. Medical Branch SUMAtriptan 2021-09 Yes [id number] 50mg Take 1 [facility] 50 mg 1-01 tablet by ity of tablet 00:00: mouth as [place] 00 needed for Medical Migraine. Branch diltiazem 2021-09 Yes [id number] 120mg Take 1 U nivers 120 mg 24 1-01 capsule by ity of hr capsule 00:00: mouth in [facility] 00 the Medical morning Branch and 1 capsule in the evening. fluticasone 2021-09 Yes [id number] 2{puff} Inhale 2 [facility] propionate 1-01 Puffs ity of (FLOVENT 00:00: every 12 [place] HFA) 110 00 (twelve) Medical mcg/actuati hours. Branch on inhaler Rinse mouth after each use. metformin 2021-09 Yes [id number] 500mg Take 1 U nivers ER 500 mg 1-01 tablet by ity o f 24 hr 00:00: mouth [place] tablet 00 daily with Medical breakfast. Branch pantoprazol 2021-09 Yes [id number] 40mg Take 1 [facility] e 40 mg EC 1-01 tablet by ity of tablet 00:00: mouth in [place] 00 the Medical morning. Branch pregabalin 2021-09 Yes [id number] 150mg Take 1 [facility] 150 mg 1-01 capsule by ity of capsule 00:00: mouth in [place] 00 the Medical morning Branch and 1 capsule at noon and 1 capsule in the evening. rosuvastati 2021-09 Yes [id number] 10mg Take 1 [facility] n 10 mg 1-01 tablet by ity of tablet 00:00: mouth at [place] 00 bedtime. Medical Branch SUMAtriptan 2021-09 Yes [id number] 50mg Take 1 [facility] 50 mg 1-01 tablet by ity of tablet 00:00: mouth as [place] 00 needed for Medical Migraine. Branch diltiazem 2021-09 Yes [id number] 120mg Take 1 U nivers 120 mg 24 1-01 capsule by ity of hr capsule 00:00: mouth in [place] as 00 the Medical morning Branch and 1 capsule in the evening. fluticasone 2021-09 Yes [id number] 2{puff} Inhale 2 [facility] propionate 1-01 Puffs ity of (FLOVENT 00:00: every 12 [place] HFA) 110 00 (twelve) Medical mcg/actuati hours. Branch on inhaler Rinse mouth after each use. metformin 2021-09 Yes [id number] 500mg Take 1 U nivers ER 500 mg 1-01 tablet by ity o f 24 hr 00:00: mouth [place] tablet 00 daily with Medical breakfast. Branch pantoprazol 2021-09 Yes [id number] 40mg Take 1 [facility] e 40 mg EC 1-01 tablet by ity of tablet 00:00: mouth in [place] 00 the Medical morning. Branch pregabalin 2021-09 Yes [id number] 150mg Take 1 [facility] 150 mg 1-01 capsule by ity of capsule 00:00: mouth in [place] 00 the Medical morning Branch and 1 capsule at noon and 1 capsule in the evening. rosuvastati 2021-09 Yes [id number] 10mg Take 1 [facility] n 10 mg 1-01 tablet by ity of tablet 00:00: mouth at [place] 00 bedtime. Medical Branch SUMAtriptan 2021-09 Yes [id number] 50mg Take 1 [facility] 50 mg 1-01 tablet by ity of tablet 00:00: mouth as [place] 00 needed for Medical Migraine. Branch diltiazem 2021-09 Yes [id number] 120mg Take 1 U nivers 120 mg 24 1-01 capsule by ity of hr capsule 00:00: mouth in [place] as 00 the Medical morning Branch and 1 capsule in the evening. fluticasone 2021-09 Yes [id number] 2{puff} Inhale 2 [facility] propionate 1-01 Puffs ity of (FLOVENT 00:00: every 12 [place] HFA) 110 00 (twelve) Medical mcg/actuati hours. Branch on inhaler Rinse mouth after each use. metformin 2021-09 Yes [id number] 500mg Take 1 U nivers ER 500 mg 1-01 tablet by ity o f 24 hr 00:00: mouth [place] tablet 00 daily with Medical breakfast. Branch pantoprazol 2021-09 Yes [id number] 40mg Take 1 [facility] e 40 mg EC 1-01 tablet by ity of tablet 00:00: mouth in [place] 00 the Medical morning. Branch rosuvastati 2021-09 Yes [id number] 10mg Take 1 [facility] n 10 mg 1-01 tablet by ity of tablet 00:00: mouth at [place] 00 bedtime. Medical Branch SUMAtriptan 2021-09 Yes [id number] 50mg Take 1 [facility] 50 mg 1-01 tablet by ity of tablet 00:00: mouth as [place] 00 needed for Medical Migraine. Branch diltiazem 2021-09 Yes [id number] 120mg Take 1 U nivers 120 mg 24 1-01 capsule by ity of hr capsule 00:00: mouth in [place] 00 the Medical morning Branch and 1 capsule in the evening. fluticasone 2021-09 Yes [id number] 2{puff} Inhale 2 [facility] propionate 1-01 Puffs ity of (FLOVENT 00:00: every 12 [place] HFA) 110 00 (twelve) Medical mcg/actuati hours. Branch on inhaler Rinse mouth after each use. metformin 2021-09 Yes [id number] 500mg Take 1 U nivers ER 500 mg 1-01 tablet by ity o f 24 hr 00:00: mouth [place] tablet 00 daily with Medical breakfast. Branch pantoprazol 2021-09 Yes [id number] 40mg Take 1 [facility] e 40 mg EC 1-01 tablet by ity of tablet 00:00: mouth in [place] 00 the Medical morning. Branch rosuvastati 2021-09 Yes [id number] 10mg Take 1 [facility] n 10 mg 1-01 tablet by ity of tablet 00:00: mouth at [place] 00 bedtime. Medical Branch SUMAtriptan 2021-09 Yes [id number] 50mg Take 1 [facility] 50 mg 1-01 tablet by ity of tablet 00:00: mouth as [place] 00 needed for Medical Migraine. Branch diltiazem 2021-09 Yes [id number] 120mg Take 1 U nivers 120 mg 24 1-01 capsule by ity of hr capsule 00:00: mouth in [place] 00 the Medical morning Branch and 1 capsule in the evening. fluticasone 2021-09 Yes [id number] 2{puff} Inhale 2 [facility] propionate 1-01 Puffs ity of (FLOVENT 00:00: every 12 [place] HFA) 110 00 (twelve) Medical mcg/actuati hours. Branch on inhaler Rinse mouth after each use. metformin 2021-09 Yes [id number] 500mg Take 1 U nivers ER 500 mg 1-01 tablet by ity o f 24 hr 00:00: mouth [place] tablet 00 daily with Medical breakfast. Branch pantoprazol 2021-09 Yes [id number] 40mg Take 1 [facility] e 40 mg EC 1-01 tablet by ity of tablet 00:00: mouth in [place] 00 the Medical morning. Branch rosuvastati 2021-09 Yes [id number] 10mg Take 1 [facility] n 10 mg 1-01 tablet by ity of tablet 00:00: mouth at [place] 00 bedtime. Medical Branch SUMAtriptan 2021-09 Yes [id number] 50mg Take 1 [facility] 50 mg 1-01 tablet by ity of tablet 00:00: mouth as [place] 00 needed for Medical Migraine. Branch diltiazem 2021-09 Yes [id number] 120mg Take 1 U nivers 120 mg 24 1-01 capsule by ity of hr capsule 00:00: mouth in [place] 00 the Medical morning Branch and 1 capsule in the evening. fluticasone 2021-09 Yes [id number] 2{puff} Inhale 2 [facility] propionate 1-01 Puffs ity of (FLOVENT 00:00: every 12 [place] HFA) 110 00 (twelve) Medical mcg/actuati hours. Branch on inhaler Rinse mouth after each use. metformin 2021-09 Yes [id number] 500mg Take 1 U nivers ER 500 mg 1-01 tablet by ity o f 24 hr 00:00: mouth [place] tablet 00 daily with Medical breakfast. Branch pantoprazol 2021-09 Yes [id number] 40mg Take 1 [facility] e 40 mg EC 1-01 tablet by ity of tablet 00:00: mouth in [place] 00 the Medical morning. Branch rosuvastati 2021-09 Yes [id number] 10mg Take 1 [facility] n 10 mg 1-01 tablet by ity of tablet 00:00: mouth at [place] 00 bedtime. Medical Branch SUMAtriptan 2021-09 Yes [id number] 50mg Take 1 [facility] 50 mg 1-01 tablet by ity of tablet 00:00: mouth as [place] 00 needed for Medical Migraine. Branch diltiazem 2021-09 Yes [id number] 120mg Take 1 U nivers 120 mg 24 1-01 capsule by ity of hr capsule 00:00: mouth in [place] 00 the Medical morning Branch and 1 capsule in the evening. fluticasone 2021-09 Yes [id number] 2{puff} Inhale 2 [facility] propionate 1-01 Puffs ity of (FLOVENT 00:00: every 12 [place] HFA) 110 00 (twelve) Medical mcg/actuati hours. Branch on inhaler Rinse mouth after each use. metformin 2021-09 Yes [id number] 500mg Take 1 U nivers ER 500 mg 1-01 tablet by ity o f 24 hr 00:00: mouth [place] tablet 00 daily with Medical breakfast. Branch pantoprazol 2021-09 Yes [id number] 40mg Take 1 [facility] e 40 mg EC 1-01 tablet by ity of tablet 00:00: mouth in [place] 00 the Medical morning. Branch rosuvastati 2021-09 Yes [id number] 10mg Take 1 [facility] n 10 mg 1-01 tablet by ity of tablet 00:00: mouth at [place] [address] bedtime. Medical Branch SUMAtriptan 2021-09 Yes [id number] 50mg Take 1 [facility] 50 mg 1-01 tablet by ity of tablet 00:00: mouth as [place] 00 needed for Medical Migraine. Branch diltiazem 2021-09 Yes [id number] 120mg Take 1 U nivers 120 mg 24 1-01 capsule by ity of hr capsule 00:00: mouth in [place] 00 the Medical morning Branch and 1 capsule in the evening. fluticasone 2021-09 Yes [id number] 2{puff} Inhale 2 [facility] propionate 1-01 Puffs ity of (FLOVENT 00:00: every 12 [place] HFA) 110 00 (twelve) Medical mcg/actuati hours. Branch on inhaler Rinse mouth after each use. metformin 2021-09 Yes [id number] 500mg Take 1 U nivers ER 500 mg 1-01 tablet by ity o f 24 hr 00:00: mouth [place] tablet 00 daily with Medical breakfast. Branch pantoprazol 2021-09 Yes [id number] 40mg Take 1 [facility] e 40 mg EC 1-01 tablet by ity of tablet 00:00: mouth in [place] 00 the Medical morning. Branch rosuvastati 2021-09 Yes [id number] 10mg Take 1 [facility] n 10 mg 1-01 tablet by ity of tablet 00:00: mouth at [place] 00 bedtime. Medical Branch SUMAtriptan 2021-09 Yes [id number] 50mg Take 1 [facility] 50 mg 1-01 tablet by ity of tablet 00:00: mouth as [place] 00 needed for Medical Migraine. Branch diltiazem 2021-09 Yes [id number] 120mg Take 1 U nivers 120 mg 24 1-01 capsule by ity of hr capsule 00:00: mouth in [place] 00 the Medical morning Branch and 1 capsule in the evening. fluticasone 2021-09 Yes [id number] 2{puff} Inhale 2 [facility] propionate 1-01 Puffs ity of (FLOVENT 00:00: every 12 [place] HFA) 110 00 (twelve) Medical mcg/actuati hours. Branch on inhaler Rinse mouth after each use. metformin 2021-09 Yes [id number] 500mg Take 1 U nivers ER 500 mg 1-01 tablet by ity o f 24 hr 00:00: mouth [place] tablet 00 daily with Medical breakfast. Branch pantoprazol 2021-09 Yes [id number] 40mg Take 1 [facility] e 40 mg EC 1-01 tablet by ity of tablet 00:00: mouth in [place] 00 the Medical morning. Branch rosuvastati 2021-09 Yes [id number] 10mg Take 1 [facility] n 10 mg 1-01 tablet by ity of tablet 00:00: mouth at [place] [address] bedtime. Medical Branch SUMAtriptan 2021-09 Yes [id number] 50mg Take 1 [facility] 50 mg 1-01 tablet by ity of tablet 00:00: mouth as [place] 00 needed for Medical Migraine. Branch diltiazem 2021-09 Yes [id number] 120mg Take 1 U nivers 120 mg 24 1-01 capsule by ity of hr capsule 00:00: mouth in [place] 00 the Medical morning Branch and 1 capsule in the evening. fluticasone 2021-09 Yes [id number] 2{puff} Inhale 2 [facility] propionate 1-01 Puffs ity of (FLOVENT 00:00: every 12 [place] HFA) 110 00 (twelve) Medical mcg/actuati hours. Branch on inhaler Rinse mouth after each use. metformin 2021-09 Yes [id number] 500mg Take 1 [facility] ER 500 mg 1-01 tablet by ity o f 24 hr 00:00: mouth [place] tablet 00 daily with Medical breakfast. Branch pantoprazol 2021-09 Yes [id number] 40mg Take 1 [facility] e 40 mg EC 1-01 tablet by [facility] of tablet 00:00: mouth in [place] 00 the Medical morning. Branch rosuvastati 2021-09 Yes [id number] 10mg Take 1 [facility] n 10 mg 1-01 tablet by it[facility] of tablet 00:00: mouth at [place] [address] bedtime. Medical Branch SUMAtriptan 2021-09 Yes [id number] 50mg Take 1 [facility] 50 mg 1-01 tablet by it[facility] of tablet 00:00: mouth as [place] 00 needed for Medical Migraine. Branch diltiazem 2021-09 Yes [id number] 120mg Take 1 [facility] 120 mg 24 1-01 capsule by ity of hr capsule 00:00: mouth in [place] 00 the Medical morning Branch and 1 capsule in the evening. fluticasone 2021-09 Yes [id number] 2{puff} Inhale 2 [facility] propionate 1-01 Puffs ity of (FLOVENT 00:00: every 12 [facility]) 110 00 (twelve) Medical mcg/actuati hours. Branch on inhaler Rinse mouth after each use. metformin 2021-09 Yes [id number] 500mg Take 1 [facility] nivers ER 500 mg 1-01 tablet by ity o f 24 hr 00:00: mouth [place] tablet 00 daily with Medical breakfast. Branch pantoprazol 2021-09 Yes [id number] 40mg Take 1 [facility] e 40 mg EC 1-01 tablet by ity of tablet 00:00: mouth in [place] 00 the Medical morning. Branch rosuvastati 2021-09 Yes [id number] 10mg Take 1 [facility] n 10 mg 1-01 tablet by ity of tablet 00:00: mouth at [place] 00 bedtime. Medical Branch SUMAtriptan 2021-09 Yes [id number] 50mg Take 1 [facility] 50 mg 1-01 tablet by ity of tablet 00:00: mouth as [place] 00 needed for Medical Migraine. Branch diltiazem 2021-09 Yes [id number] 120mg Take 1 [facility] 120 mg 24 1-01 capsule by ity of hr capsule 00:00: mouth in [place] 00 the Medical morning Branch and 1 capsule in the evening. fluticasone 2021-09 Yes [id number] 2{puff} Inhale 2 [facility] propionate 1-01 Puffs ity of (FLOVENT 00:00: every 12 [place] [facility]) 110 00 (twelve) Medical mcg/actuati hours. Branch on inhaler Rinse mouth after each use. metformin 2021-09 Yes [id number] 500mg Take 1 [facility] n[facility] ER 500 mg 1-01 tablet by ity o f 24 hr 00:00: mouth [place] tablet 00 daily with Medical breakfast. Branch pantoprazol 2021-09 Yes [id number] 40mg Take 1 [facility] e 40 mg EC 1-01 tablet by ity of tablet 00:00: mouth in [place] 00 the Medical morning. Branch rosuvastati 2021-09 Yes [id number] 10mg Take 1 [facility] n 10 mg 1-01 tablet by ity of tablet 00:00: mouth at [place] [address] bedtime. Medical Branch SUMAtriptan 2021-09 Yes [id number] 50mg Take 1 [facility] 50 mg 1-01 tablet by ity of tablet 00:00: mouth as [place] 00 needed for Medical Migraine. Branch diltiazem 2021-09 Yes [id number] 120mg Take 1 [facility] 120 mg 24 1-01 capsule by ity of hr capsule 00:00: mouth in [place] 00 the Medical morning Branch and 1 capsule in the evening. fluticasone 2021-09 Yes [id number] 2{puff} Inhale 2 [facility] propionate 1-01 Puffs ity of (FLOVENT 00:00: every 12 [place] [facility]) 110 00 (twelve) Medical mcg/actuati hours. Branch on inhaler Rinse mouth after each use. metformin 2021-09 Yes [id number] 500mg Take 1 [facility] ER 500 mg 1-01 tablet by ity o f 24 hr 00:00: mouth [place] tablet 00 daily with Medical breakfast. Branch pantoprazol 2021-09 Yes [id number] 40mg Take 1 [facility] 40 mg EC 1-01 tablet by ity of tablet 00:00: mouth in [place] 00 the Medical morning. Branch rosuvastati 2021-09 Yes [id number] 10mg Take 1 [facility] n 10 mg 1-01 tablet by ity of tablet 00:00: mouth at [place] 00 bedtime. Medical Branch SUMAtriptan 2021-09 Yes [id number] 50mg Take 1 [facility] 50 mg 1-01 tablet by ity of tablet 00:00: mouth as [place] 00 needed for Medical Migraine. Branch diltiazem 2021-09 Yes [id number] 120mg Take 1 [facility] 120 mg 24 1-01 capsule by ity of hr capsule 00:00: mouth in [place] 00 the Medical morning Branch and 1 capsule in the evening. fluticasone 2021-09 Yes [id number] 2{puff} Inhale 2 [facility] propionate 1-01 Puffs ity of (FLOVENT 00:00: every 12 [place] [facility]) 110 00 (twelve) Medical mcg/actuati hours. Branch on inhaler Rinse mouth after each use. metformin 2021-09 Yes [id number] 500mg Take 1 [facility] n[facility] ER 500 mg 1-01 tablet by ity o f 24 hr 00:00: mouth [place] tablet 00 daily with Medical breakfast. Branch pantoprazol 2021-09 Yes [id number] 40mg Take 1 [facility] e 40 mg EC 1-01 tablet by ity of tablet 00:00: mouth in [place] 00 the Medical morning. Branch rosuvastati 2021-09 Yes [id number] 10mg Take 1 [facility] n 10 mg 1-01 tablet by ity of tablet 00:00: mouth at [place] [address] bedtime. Medical Branch SUMAtriptan 2021-09 Yes [id number] 50mg Take 1 [facility] 50 mg 1-01 tablet by ity of tablet 00:00: mouth as [place] 00 needed for Medical Migraine. Branch diltiazem 2021-09 Yes [id number] 120mg Take 1 [facility]ivers 120 mg 24 1-01 capsule by ity of hr capsule 00:00: mouth in [place] 00 the Medical morning Branch and 1 capsule in the evening. fluticasone 2021-09 Yes [id number] 2{puff} Inhale 2 [facility] propionate 1-01 Puffs ity of (FLOVENT 00:00: every 12 [place] [facility]) 110 00 (twelve) Medical mcg/actuati hours. Branch on inhaler Rinse mouth after each use. metformin 2021-09 Yes [id number] 500mg Take 1 [facility] nivers ER 500 mg 1-01 tablet by ity o f 24 hr 00:00: mouth [place] tablet 00 daily with Medical breakfast. Branch pantoprazol 2021-09 Yes [id number] 40mg Take 1 [facility] e 40 mg EC 1-01 tablet by ity of tablet 00:00: mouth in [place] 00 the Medical morning. Branch rosuvastati 2021-09 Yes [id number] 10mg Take 1 [facility] n 10 mg 1-01 tablet by ity of tablet 00:00: mouth at [place] 00 bedtime. Medical Branch SUMAtriptan 2021-09 Yes [id number] 50mg Take 1 [facility] 50 mg 1-01 tablet by ity of tablet 00:00: mouth as [place] 00 needed for Medical Migraine. Branch diltiazem 2021-09 Yes [id number] 120mg Take 1 [facility] 120 mg 24 1-01 capsule by ity of hr capsule 00:00: mouth in [place] 00 the Medical morning Branch and 1 capsule in the evening. fluticasone 2021-09 Yes [id number] 2{puff} Inhale 2 [facility] propionate 1-01 Puffs ity of (FLOVENT 00:00: every 12 [place] [facility]) 110 00 (twelve) Medical mcg/actuati hours. Branch on inhaler Rinse mouth after each use. rosuvastati 2021-09 Yes [id number] 10mg Take 1 [facility] n 10 mg 1-01 tablet by ity of tablet 00:00: mouth at [place] 00 bedtime. Medical Branch diltiazem 2021-09 Yes [id number] 120mg Take 1 [facility]ivers 120 mg 24 1-01 capsule by ity of hr capsule 00:00: mouth in [place] 00 the Medical morning Branch and 1 capsule in the evening. fluticasone 2021-09 Yes [id number] 2{puff} Inhale 2 [facility] propionate 1-01 Puffs ity of (FLOVENT 00:00: every 12 [place] [facility]) 110 00 (twelve) Medical mcg/actuati hours. Branch on inhaler Rinse mouth after each use. rosuvastati 2021-09 Yes [id number] 10mg Take 1 [facility] n 10 mg 1-01 tablet by ity of tablet 00:00: mouth at [place] 00 bedtime. Medical Branch diltiazem 2021-09 Yes [id number] 120mg Take 1 [facility]ivers 120 mg 24 1-01 capsule by ity of hr capsule 00:00: mouth in [place] 00 the Medical morning Branch and 1 capsule in the evening. fluticasone 2021-09 Yes [id number] 2{puff} Inhale 2 [facility] propionate 1-01 Puffs ity of (FLOVENT 00:00: every 12 [place] [facility]) 110 00 (twelve) Medical mcg/actuati hours. Branch on inhaler Rinse mouth after each use. rosuvastati 2021-09 Yes [id number] 10mg Take 1 [facility] n 10 mg 1-01 tablet by ity of tablet 00:00: mouth at [place] 00 bedtime. Medical Branch diltiazem 2021-09 Yes [id number] 120mg Take 1 [facility] nivers 120 mg 24 1-01 capsule by ity of hr capsule 00:00: mouth in [place] 00 the Medical morning Branch and 1 capsule in the evening. fluticasone 2021-09 Yes [id number] 2{puff} Inhale 2 [facility] propionate 1-01 Puffs ity of (FLOVENT 00:00: every 12 [place] [facility]) 110 00 (twelve) Medical mcg/actuati hours. Branch on inhaler Rinse mouth after each use. rosuvastati 2021-09 Yes [id number] 10mg Take 1 [facility] n 10 mg 1-01 tablet by ity of tablet 00:00: mouth at [place] 00 bedtime. Medical Branch diltiazem 2021-09 Yes [id number] 120mg Take 1 [facility]ivers 120 mg 24 1-01 capsule by ity of hr capsule 00:00: mouth in [place] 00 the Medical morning Branch and 1 capsule in the evening. fluticasone 2021-09 Yes [id number] 2{puff} Inhale 2 [facility] propionate 1-01 Puffs ity of (FLOVENT 00:00: every 12 [place] [facility]) 110 00 (twelve) Medical mcg/actuati hours. Branch on inhaler Rinse mouth after each use. rosuvastati 2021-09 Yes [id number] 10mg Take 1 [facility] n 10 mg 1-01 tablet by ity of tablet 00:00: mouth at [place] 00 bedtime. Medical Branch diltiazem 2021-09 Yes [id number] 120mg Take 1 [facility] nivers 120 mg 24 1-01 capsule by ity of hr capsule 00:00: mouth in [place] 00 the Medical morning Branch and 1 capsule in the evening. fluticasone 2021-09 Yes [id number] 2{puff} Inhale 2 [facility] propionate 1-01 Puffs ity of (FLOVENT 00:00: every 12 [place] [facility]) 110 00 (twelve) Medical mcg/actuati hours. Branch on inhaler Rinse mouth after each use. rosuvastati 2021-09 Yes [id number] 10mg Take 1 [facility] n 10 mg 1-01 tablet by ity of tablet 00:00: mouth at [place] 00 bedtime. Medical Branch diltiazem 2021-09 Yes [id number] 120mg Take 1 [facility] nivers 120 mg 24 1-01 capsule by ity of hr capsule 00:00: mouth in [place] 00 the Medical morning Branch and 1 capsule in the evening. fluticasone 2021-09 Yes [id number] 2{puff} Inhale 2 [facility] propionate 1-01 Puffs ity of (FLOVENT 00:00: every 12 [place] [facility]) 110 00 (twelve) Medical mcg/actuati hours. Branch on inhaler Rinse mouth after each use. rosuvastati 2021-09 Yes [id number] 10mg Take 1 [facility] n 10 mg 1-01 tablet by ity of tablet 00:00: mouth at [place] 00 bedtime. Medical Branch diltiazem 2021-09 Yes [id number] 120mg Take 1 [facility] nivers 120 mg 24 1-01 capsule by ity of hr capsule 00:00: mouth in [place] 00 the Medical morning Branch and 1 capsule in the evening. fluticasone 2021-09 Yes [id number] 2{puff} Inhale 2 [facility] propionate 1-01 Puffs ity of (FLOVENT 00:00: every 12 [place] [facility]) 110 00 (twelve) Medical mcg/actuati hours. Branch on inhaler Rinse mouth after each use. rosuvastati 2021-09 Yes [id number] 10mg Take 1 [facility] n 10 mg 1-01 tablet by ity of tablet 00:00: mouth at [place] 00 bedtime. Medical Branch diltiazem 2021-09 Yes [id number] 120mg Take 1 [facility] nivers 120 mg 24 1-01 capsule by ity of hr capsule 00:00: mouth in [place] 00 the Medical morning Branch and 1 capsule in the evening. fluticasone 2021-09 Yes [id number] 2{puff} Inhale 2 [facility] propionate 1-01 Puffs ity of (FLOVENT 00:00: every 12 [place] [facility]) 110 00 (twelve) Medical mcg/actuati hours. Branch on inhaler Rinse mouth after each use. rosuvastati 2021-09 Yes [id number] 10mg Take 1 [facility] n 10 mg 1-01 tablet by ity of tablet 00:00: mouth at [place] 00 bedtime. Medical Branch diltiazem 2021-09 Yes [id number] 120mg Take 1 [facility] nivers 120 mg 24 1-01 capsule by ity of hr capsule 00:00: mouth in [place] 00 the Medical morning Branch and 1 capsule in the evening. fluticasone 2021-09 Yes [id number] 2{puff} Inhale 2 [facility] propionate 1-01 Puffs ity of (FLOVENT 00:00: every 12 [place] [facility]) 110 00 (twelve) Medical mcg/actuati hours. Branch on inhaler Rinse mouth after each use. rosuvastati 2021-09 Yes [id number] 10mg Take 1 [facility] n 10 mg 1-01 tablet by ity of tablet 00:00: mouth at [place] 00 bedtime. Medical Branch diltiazem 2021-09 Yes [id number] 120mg Take 1 [facility] nivers 120 mg 24 1-01 capsule by ity of hr capsule 00:00: mouth in [place] 00 the Medical morning Branch and 1 capsule in the evening. fluticasone 2021-09 Yes [id number] 2{puff} Inhale 2 [facility] propionate 1-01 Puffs ity of (FLOVENT 00:00: every 12 [place] [facility]) 110 00 (twelve) Medical mcg/actuati hours. Branch on inhaler Rinse mouth after each use. rosuvastati 2021-09 Yes [id number] 10mg Take 1 [facility] n 10 mg 1-01 tablet by ity of tablet 00:00: mouth at [place] 00 bedtime. Medical Branch diltiazem 2021-09 Yes [id number] 120mg Take 1 [facility] nivers 120 mg 24 1-01 capsule by ity of hr capsule 00:00: mouth in [place] 00 the Medical morning Branch and 1 capsule in the evening. fluticasone 2021-09 Yes [id number] 2{puff} Inhale 2 [facility] propionate 1-01 Puffs ity of (FLOVENT 00:00: every 12 [place] [facility]) 110 00 (twelve) Medical mcg/actuati hours. Branch on inhaler Rinse mouth after each use. rosuvastati 2021-09 Yes [id number] 10mg Take 1 [facility] n 10 mg 1-01 tablet by ity of tablet 00:00: mouth at [place] 00 bedtime. Medical Branch diltiazem 2021-09 Yes [id number] 120mg Take 1 [facility] nivers 120 mg 24 1-01 capsule by ity of hr capsule 00:00: mouth in [place] 00 the Medical morning Branch and 1 capsule in the evening. fluticasone 2021-09 Yes [id number] 2{puff} Inhale 2 [facility] propionate 1-01 Puffs ity of (FLOVENT 00:00: every 12 [place] [facility]) 110 00 (twelve) Medical mcg/actuati hours. Branch on inhaler Rinse mouth after each use. rosuvastati 2021-09 Yes [id number] 10mg Take 1 [facility] n 10 mg 1-01 tablet by ity of tablet 00:00: mouth at [place] 00 bedtime. Medical Branch diltiazem 2021-09 Yes [id number] 120mg Take 1 [facility] nivers 120 mg 24 1-01 capsule by ity of hr capsule 00:00: mouth in [place] 00 the Medical morning Branch and 1 capsule in the evening. fluticasone 2021-09 Yes [id number] 2{puff} Inhale 2 [facility] propionate 1-01 Puffs ity of (FLOVENT 00:00: every 12 [place] [facility]) 110 00 (twelve) Medical mcg/actuati hours. Branch on inhaler Rinse mouth after each use. rosuvastati 2021-09 Yes [id number] 10mg Take 1 [facility] n 10 mg 1-01 tablet by ity of tablet 00:00: mouth at [place] 00 bedtime. Medical Branch diltiazem 2021-09 Yes [id number] 120mg Take 1 [facility] nivers 120 mg 24 1-01 capsule by ity of hr capsule 00:00: mouth in [place] 00 the Medical morning Branch and 1 capsule in the evening. fluticasone 2021-09 Yes [id number] 2{puff} Inhale 2 [facility] propionate 1-01 Puffs ity of (FLOVENT 00:00: every 12 [place] [facility]) 110 00 (twelve) Medical mcg/actuati hours. Branch on inhaler Rinse mouth after each use. rosuvastati 2021-09 Yes [id number] 10mg Take 1 [facility] n 10 mg 1-01 tablet by ity of tablet 00:00: mouth at [place] 00 bedtime. Medical Branch diltiazem 2021-09 Yes [id number] 120mg Take 1 [facility] nivers 120 mg 24 1-01 capsule by ity of hr capsule 00:00: mouth in [place] 00 the Medical morning Branch and 1 capsule in the evening. fluticasone 2021-09 Yes [id number] 2{puff} Inhale 2 [facility] propionate 1-01 Puffs ity of (FLOVENT 00:00: every 12 [place] [facility]) 110 00 (twelve) Medical mcg/actuati hours. Branch on inhaler Rinse mouth after each use. rosuvastati 2021-09 Yes [id number] 10mg Take 1 [facility] n 10 mg 1-01 tablet by ity of tablet 00:00: mouth at [place] 00 bedtime. Medical Branch diltiazem 2021-09 Yes [id number] 120mg Take 1 [facility] nivers 120 mg 24 1-01 capsule by ity of hr capsule 00:00: mouth in [place] 00 the Medical morning Branch and 1 capsule in the evening. fluticasone 2021-09 Yes [id number] 2{puff} Inhale 2 [facility] propionate 1-01 Puffs ity of (FLOVENT 00:00: every 12 [place] [facility]) 110 00 (twelve) Medical mcg/actuati hours. Branch on inhaler Rinse mouth after each use. rosuvastati 2021-09 Yes [id number] 10mg Take 1 [facility] n 10 mg 1-01 tablet by ity of tablet 00:00: mouth at [place] 00 bedtime. Medical Branch diltiazem 2021-09 Yes [id number] 120mg Take 1 [facility] nivers 120 mg 24 1-01 capsule by ity of hr capsule 00:00: mouth in [place] 00 the Medical morning Branch and 1 capsule in the evening. fluticasone 2021-09 Yes [id number] 2{puff} Inhale 2 [facility] propionate 1-01 Puffs ity of (FLOVENT 00:00: every 12 [place] [facility]) 110 00 (twelve) Medical mcg/actuati hours. Branch on inhaler Rinse mouth after each use. rosuvastati 2021-09 Yes [id number] 10mg Take 1 [facility] n 10 mg 1-01 tablet by ity of tablet 00:00: mouth at [place] 00 bedtime. Medical Branch diltiazem 2021-09 Yes [id number] 120mg Take 1 [facility] nivers 120 mg 24 1-01 capsule by ity of hr capsule 00:00: mouth in [place] 00 the Medical morning Branch and 1 capsule in the evening. fluticasone 2021-09 Yes [id number] 2{puff} Inhale 2 [facility] propionate 1-01 Puffs ity of (FLOVENT 00:00: every 12 [place] [facility]) 110 00 (twelve) Medical mcg/actuati hours. Branch on inhaler Rinse mouth after each use. rosuvastati 2021-09 Yes [id number] 10mg Take 1 [facility] n 10 mg 1-01 tablet by ity of tablet 00:00: mouth at [place] 00 bedtime. Medical Branch diltiazem 2021-09 Yes [id number] 120mg Take 1 [facility] nivers 120 mg 24 1-01 capsule by ity of hr capsule 00:00: mouth in [place] 00 the Medical morning Branch and 1 capsule in the evening. fluticasone 2021-09 Yes [id number] 2{puff} Inhale 2 [facility] propionate 1-01 Puffs ity of (FLOVENT 00:00: every 12 [place] [facility]) 110 00 (twelve) Medical mcg/actuati hours. Branch on inhaler Rinse mouth after each use. rosuvastati 2021-09 Yes [id number] 10mg Take 1 [facility] n 10 mg 1-01 tablet by ity of tablet 00:00: mouth at [place] 00 bedtime. Medical Branch diltiazem 2021-09 Yes [id number] 120mg Take 1 [facility]ivers 120 mg 24 1-01 capsule by ity of hr capsule 00:00: mouth in [place] 00 the Medical morning Branch and 1 capsule in the evening. fluticasone 2021-09 Yes [id number] 2{puff} Inhale 2 [facility] propionate 1-01 Puffs ity of (FLOVENT 00:00: every 12 [place] [facility]) 110 00 (twelve) Medical mcg/actuati hours. Branch on inhaler Rinse mouth after each use. rosuvastati 2021-09 Yes [id number] 10mg Take 1 [facility] n 10 mg 1-01 tablet by ity of tablet 00:00: mouth at [place] 00 bedtime. Medical Branch diltiazem 2021-09 Yes [id number] 120mg Take 1 [facility] nivers 120 mg 24 1-01 capsule by ity of hr capsule 00:00: mouth in [place] 00 the Medical morning Branch and 1 capsule in the evening. fluticasone 2021-09 Yes [id number] 2{puff} Inhale 2 [facility] propionate 1-01 Puffs ity of (FLOVENT 00:00: every 12 [place] [facility]) 110 00 (twelve) Medical mcg/actuati hours. Branch on inhaler Rinse mouth after each use. rosuvastati 2021-09 Yes [id number] 10mg Take 1 [facility] n 10 mg 1-01 tablet by ity of tablet 00:00: mouth at [place] 00 bedtime. Medical Branch diltiazem 2021-09 Yes [id number] 120mg Take 1 [facility] nivers 120 mg 24 1-01 capsule by ity of hr capsule 00:00: mouth in [place] 00 the Medical morning Branch and 1 capsule in the evening. fluticasone 2021-09 Yes [id number] 2{puff} Inhale 2 [facility] propionate 1-01 Puffs ity of (FLOVENT 00:00: every 12 [place] [facility]) 110 00 (twelve) Medical mcg/actuati hours. Branch on inhaler Rinse mouth after each use. rosuvastati 2021-09 Yes [id number] 10mg Take 1 [facility] n 10 mg 1-01 tablet by ity of tablet 00:00: mouth at [place] 00 bedtime. Medical Branch diltiazem 2021-09 Yes [id number] 120mg Take 1 [facility] nivers 120 mg 24 1-01 capsule by ity of hr capsule 00:00: mouth in [place] 00 the Medical morning Branch and 1 capsule in the evening. fluticasone 2021-09 Yes [id number] 2{puff} Inhale 2 [facility] propionate 1-01 Puffs ity of (FLOVENT 00:00: every 12 [place] [facility]) 110 00 (twelve) Medical mcg/actuati hours. Branch on inhaler Rinse mouth after each use. rosuvastati 2021-09 Yes [id number] 10mg Take 1 [facility] n 10 mg 1-01 tablet by ity of tablet 00:00: mouth at [place] 00 bedtime. Medical Branch diltiazem 2021-09 Yes [id number] 120mg Take 1 [facility]ivers 120 mg 24 1-01 capsule by ity of hr capsule 00:00: mouth in [place] 00 the Medical morning Branch and 1 capsule in the evening. fluticasone 2021-09 Yes [id number] 2{puff} Inhale 2 [facility] propionate 1-01 Puffs ity of (FLOVENT 00:00: every 12 [place] [facility]) 110 00 (twelve) Medical mcg/actuati hours. Branch on inhaler Rinse mouth after each use. rosuvastati 2021-09 Yes [id number] 10mg Take 1 [facility] n 10 mg 1-01 tablet by ity of tablet 00:00: mouth at [place] 00 bedtime. Medical Branch diltiazem 2021-09 Yes [id number] 120mg Take 1 [facility]ivers 120 mg 24 1-01 capsule by ity of hr capsule 00:00: mouth in [place] 00 the Medical morning Branch and 1 capsule in the evening. fluticasone 2021-09 Yes [id number] 2{puff} Inhale 2 [facility] propionate 1-01 Puffs ity of (FLOVENT 00:00: every 12 [place] [facility]) 110 00 (twelve) Medical mcg/actuati hours. Branch on inhaler Rinse mouth after each use. rosuvastati 2021-09 Yes [id number] 10mg Take 1 [facility] n 10 mg 1-01 tablet by ity of tablet 00:00: mouth at [place] 00 bedtime. Medical Branch diltiazem 2021-09 Yes [id number] 120mg Take 1 [facility]ivers 120 mg 24 1-01 capsule by ity of hr capsule 00:00: mouth in [place] 00 the Medical morning Branch and 1 capsule in the evening. fluticasone 2021-09 Yes [id number] 2{puff} Inhale 2 [facility] propionate 1-01 Puffs ity of (FLOVENT 00:00: every 12 [place] [facility]) 110 00 (twelve) Medical mcg/actuati hours. Branch on inhaler Rinse mouth after each use. rosuvastati 2021-09 Yes [id number] 10mg Take 1 [facility] n 10 mg 1-01 tablet by ity of tablet 00:00: mouth at [place] 00 bedtime. Medical Branch diltiazem 2021-09 Yes [id number] 120mg Take 1 [facility]ivers 120 mg 24 1-01 capsule by ity of hr capsule 00:00: mouth in [place] 00 the Medical morning Branch and 1 capsule in the evening. fluticasone 2021-09 Yes [id number] 2{puff} Inhale 2 [facility] propionate 1-01 Puffs ity of (FLOVENT 00:00: every 12 [place] [facility]) 110 00 (twelve) Medical mcg/actuati hours. Branch on inhaler Rinse mouth after each use. rosuvastati 2021-09 Yes [id number] 10mg Take 1 [facility] n 10 mg 1-01 tablet by ity of tablet 00:00: mouth at [place] 00 bedtime. Medical Branch diltiazem 2021-09 Yes [id number] 120mg Take 1 [facility]ivers 120 mg 24 1-01 capsule by ity of hr capsule 00:00: mouth in [place] 00 the Medical morning Branch and 1 capsule in the evening. fluticasone 2021-09 Yes [id number] 2{puff} Inhale 2 [facility] propionate 1-01 Puffs ity of (FLOVENT 00:00: every 12 [place] [facility]) 110 00 (twelve) Medical mcg/actuati hours. Branch on inhaler Rinse mouth after each use. rosuvastati 2021-09 Yes [id number] 10mg Take 1 [facility] n 10 mg 1-01 tablet by ity of tablet 00:00: mouth at [place] 00 bedtime. Medical Branch diltiazem 2021-09 Yes [id number] 120mg Take 1 [facility] 120 mg 24 1-01 capsule by ity of hr capsule 00:00: mouth in [place] 00 the Medical morning Branch and 1 capsule in the evening. fluticasone 2021-09 Yes [id number] 2{puff} Inhale 2 [facility] propionate 1-01 Puffs ity of (FLOVENT 00:00: every 12 [place] [facility]) 110 00 (twelve) Medical mcg/actuati hours. Branch on inhaler Rinse mouth after each use. rosuvastati 2021-09 Yes [id number] 10mg Take 1 [facility] n 10 mg 1-01 tablet by ity of tablet 00:00: mouth at [place] 00 bedtime. Medical Branch diltiazem 2021-09 Yes [id number] 120mg Take 1 [facility] 120 mg 24 1-01 capsule by ity of hr capsule 00:00: mouth in [place] 00 the Medical morning Branch and 1 capsule in the evening. fluticasone 2021-09 Yes [id number] 2{puff} Inhale 2 [facility] propionate 1-01 Puffs ity of (FLOVENT 00:00: every 12 [place] [facility]) 110 00 (twelve) Medical mcg/actuati hours. Branch on inhaler Rinse mouth after each use. rosuvastati 2021-09 Yes [id number] 10mg Take 1 [facility] n 10 mg 1-01 tablet by ity of tablet 00:00: mouth at [place] 00 bedtime. Medical Branch diltiazem 2021-09 Yes [id number] 120mg Take 1 [facility] 120 mg 24 1-01 capsule by ity of hr capsule 00:00: mouth in [place] 00 the Medical morning Branch and 1 capsule in the evening. fluticasone 2021-09 Yes [id number] 2{puff} Inhale 2 [facility] propionate 1-01 Puffs ity of (FLOVENT 00:00: every 12 [place] [facility]) 110 00 (twelve) Medical mcg/actuati hours. Branch on inhaler Rinse mouth after each use. rosuvastati 2021-09 Yes [id number] 10mg Take 1 [facility] n 10 mg 1-01 tablet by ity of tablet 00:00: mouth at [place] 00 bedtime. Medical Branch diltiazem 2021-09 Yes [id number] 120mg Take 1 [facility] 120 mg 24 1-01 capsule by ity of hr capsule 00:00: mouth in [place] 00 the Medical morning Branch and 1 capsule in the evening. fluticasone 2021-09 Yes [id number] 2{puff} Inhale 2 [facility] propionate 1-01 Puffs ity of (FLOVENT 00:00: every 12 [place] [facility]) 110 00 (twelve) Medical mcg/actuati hours. Branch on inhaler Rinse mouth after each use. rosuvastati 2021-09 Yes [id number] 10mg Take 1 [facility] n 10 mg 1-01 tablet by ity of tablet 00:00: mouth at [place] 00 bedtime. Medical Branch diltiazem 2021-09 Yes [id number] 120mg Take 1 [facility] 120 mg 24 1-01 capsule by ity of hr capsule 00:00: mouth in [place] 00 the Medical morning Branch and 1 capsule in the evening. fluticasone 2021-09 Yes [id number] 2{puff} Inhale 2 [facility] propionate 1-01 Puffs ity of (FLOVENT 00:00: every 12 [place] [facility]) 110 00 (twelve) Medical mcg/actuati hours. Branch on inhaler Rinse mouth after each use. rosuvastati 2021-09 Yes [id number] 10mg Take 1 [facility] n 10 mg 1-01 tablet by ity of tablet 00:00: mouth at [place] 00 bedtime. Medical Branch diltiazem 2021-09 Yes [id number] 120mg Take 1 [facility] nivers 120 mg 24 1-01 capsule by [facility] of hr capsule 00:00: mouth in [place] 00 the Medical morning Branch and 1 capsule in the evening. fluticasone 2021-09 Yes [id number] 2{puff} Inhale 2 [facility] propionate 1-01 Puffs ity of (FLOVENT 00:00: every 12 [place] HFA) 110 00 (twelve) Medical mcg/actuati hours. Branch on inhaler Rinse mouth after each use. rosuvastati 2021-09 Yes [id number] 10mg Take 1 [facility] n 10 mg 1-01 tablet by [facility]y of tablet 00:00: mouth at [place] 00 bedtime. Medical Branch diltiazem 2021-09 Yes [id number] 120mg Take 1 [facility] nivers 120 mg 24 1-01 capsule by [facility] of hr capsule 00:00: mouth in [place] 00 the Medical morning Branch and 1 capsule in the evening. fluticasone 2021-09 Yes [id number] 2{puff} Inhale 2 [facility] propionate 1-01 Puffs ity of (FLOVENT 00:00: every 12 [place] HFA) 110 00 (twelve) Medical mcg/actuati hours. Branch on inhaler Rinse mouth after each use. rosuvastati 2021-09 Yes [id number] 10mg Take 1 [facility] n 10 mg 1-01 tablet by [facility]y of tablet 00:00: mouth at [place] 00 bedtime. Medical Branch diltiazem 2021-09 Yes [id number] 120mg Take 1 [facility] nivers 120 mg 24 1-01 capsule by [facility] of hr capsule 00:00: mouth in [place] 00 the Medical morning Branch and 1 capsule in the evening. fluticasone 2021-09 Yes [id number] 2{puff} Inhale 2 [facility] propionate 1-01 Puffs ity of (FLOVENT 00:00: every 12 [place] HFA) 110 00 (twelve) Medical mcg/actuati hours. Branch on inhaler Rinse mouth after each use. rosuvastati 2021-09 Yes [id number] 10mg Take 1 [facility] n 10 mg 1-01 tablet by ity of tablet 00:00: mouth at [place] 00 bedtime. Medical Branch diltiazem 2021-09 Yes [id number] 120mg Take 1 [facility] nivers 120 mg 24 1-01 capsule by [facility] of hr capsule 00:00: mouth in [place] 00 the Medical morning Branch and 1 capsule in the evening. fluticasone 2021-09 Yes [id number] 2{puff} Inhale 2 [facility] propionate 1-01 Puffs ity of (FLOVENT 00:00: every 12 [place] HFA) 110 00 (twelve) Medical mcg/actuati hours. Branch on inhaler Rinse mouth after each use. rosuvastati 2021-09 Yes [id number] 10mg Take 1 [facility] n 10 mg 1-01 tablet by ity of tablet 00:00: mouth at [place] 00 bedtime. Medical Branch diltiazem 2021-09 Yes [id number] 120mg Take 1 [facility] nivers 120 mg 24 1-01 capsule by [facility] of hr capsule 00:00: mouth in [place] 00 the Medical morning Branch and 1 capsule in the evening. fluticasone 2021-09 Yes [id number] 2{puff} Inhale 2 [facility] propionate 1-01 Puffs ity of (FLOVENT 00:00: every 12 [place] HFA) 110 00 (twelve) Medical mcg/actuati hours. Branch on inhaler Rinse mouth after each use. rosuvastati 2021-09 Yes [id number] 10mg Take 1 [facility] n 10 mg 1-01 tablet by ity of tablet 00:00: mouth at [place] 00 bedtime. Medical Branch diltiazem 2021-09 Yes [id number] 120mg Take 1 [facility] nivers 120 mg 24 1-01 capsule by [facility] of hr capsule 00:00: mouth in [place] 00 the Medical morning Branch and 1 capsule in the evening. fluticasone 2021-09 Yes [id number] 2{puff} Inhale 2 [facility] propionate 1-01 Puffs ity of (FLOVENT 00:00: every 12 [place] HFA) 110 00 (twelve) Medical mcg/actuati hours. Branch on inhaler Rinse mouth after each use. rosuvastati 2021-09 Yes [id number] 10mg Take 1 [facility] n 10 mg 1-01 tablet by ity of tablet 00:00: mouth at [place] 00 bedtime. Medical Branch diltiazem 2021-09 Yes [id number] 120mg Take 1 [facility] nivers 120 mg 24 1-01 capsule by [facility] of hr capsule 00:00: mouth in [place] 00 the Medical morning Branch and 1 capsule in the evening. fluticasone 2021-09 Yes [id number] 2{puff} Inhale 2 [facility] propionate 1-01 Puffs ity of (FLOVENT 00:00: every 12 [place] HFA) 110 00 (twelve) Medical mcg/actuati hours. Branch on inhaler Rinse mouth after each use. rosuvastati 2021-09 Yes [id number] 10mg Take 1 [facility] n 10 mg 1-01 tablet by ity of tablet 00:00: mouth at [place] 00 bedtime. Medical Branch diltiazem 2021-09 Yes [id number] 120mg Take 1 [facility] nivers 120 mg 24 1-01 capsule by [facility] of hr capsule 00:00: mouth in [place] 00 the Medical morning Branch and 1 capsule in the evening. fluticasone 2021-09 Yes [id number] 2{puff} Inhale 2 [facility] propionate 1-01 Puffs ity of (FLOVENT 00:00: every 12 [place] HFA) 110 00 (twelve) Medical mcg/actuati hours. Branch on inhaler Rinse mouth after each use. rosuvastati 2021-09 Yes [id number] 10mg Take 1 [facility] n 10 mg 1-01 tablet by ity of tablet 00:00: mouth at [place] 00 bedtime. Medical Branch diltiazem 2021-09 Yes [id number] 120mg Take 1 [facility] nivers 120 mg 24 1-01 capsule by [facility] of hr capsule 00:00: mouth in [place] 00 the Medical morning Branch and 1 capsule in the evening. fluticasone 2021-09 Yes [id number] 2{puff} Inhale 2 [facility] propionate 1-01 Puffs ity of (FLOVENT 00:00: every 12 [place] HFA) 110 00 (twelve) Medical mcg/actuati hours. Branch on inhaler Rinse mouth after each use. rosuvastati 2021-09 Yes [id number] 10mg Take 1 [facility] n 10 mg 1-01 tablet by ity of tablet 00:00: mouth at [place] 00 bedtime. Medical Branch diltiazem 2021-09 Yes [id number] 120mg Take 1 [facility] nivers 120 mg 24 1-01 capsule by [facility] of hr capsule 00:00: mouth in [place] 00 the Medical morning Branch and 1 capsule in the evening. fluticasone 2021-09 Yes [id number] 2{puff} Inhale 2 [facility] propionate 1-01 Puffs ity of (FLOVENT 00:00: every 12 [place] HFA) 110 00 (twelve) Medical mcg/actuati hours. Branch on inhaler Rinse mouth after each use. rosuvastati 2021-09 Yes [id number] 10mg Take 1 [facility] n 10 mg 1-01 tablet by ity of tablet 00:00: mouth at [place] 00 bedtime. Medical Branch diltiazem 2021-09 Yes [id number] 120mg Take 1 [facility] nivers 120 mg 24 1-01 capsule by [facility] of hr capsule 00:00: mouth in [place] 00 the Medical morning Branch and 1 capsule in the evening. fluticasone 2021-09 Yes [id number] 2{puff} Inhale 2 [facility] propionate 1-01 Puffs ity of (FLOVENT 00:00: every 12 [place] HFA) 110 00 (twelve) Medical mcg/actuati hours. Branch on inhaler Rinse mouth after each use. rosuvastati 2021-09 Yes [id number] 10mg Take 1 [facility] n 10 mg 1-01 tablet by ity of tablet 00:00: mouth at [place] 00 bedtime. Medical Branch diltiazem 2021-09 Yes [id number] 120mg Take 1 [facility] 120 mg 24 1-01 capsule by [facility] of hr capsule 00:00: mouth in [place] 00 the Medical morning Branch and 1 capsule in the evening. fluticasone 2021-09 Yes [id number] 2{puff} Inhale 2 [facility] propionate 1-01 Puffs ity of (FLOVENT 00:00: every 12 [place] HFA) 110 00 (twelve) Medical mcg/actuati hours. Branch on inhaler Rinse mouth after each use. rosuvastati 2021-09 Yes [id number] 10mg Take 1 [facility] n 10 mg 1-01 tablet by ity of tablet 00:00: mouth at [place] 00 bedtime. Medical Branch diltiazem 2021-09 Yes [id number] 120mg Take 1 [facility] nivers 120 mg 24 1-01 capsule by [facility] of hr capsule 00:00: mouth in [place] 00 the Medical morning Branch and 1 capsule in the evening. fluticasone 2021-09 Yes [id number] 2{puff} Inhale 2 [facility] propionate 1-01 Puffs ity of (FLOVENT 00:00: every 12 [place] HFA) 110 00 (twelve) Medical mcg/actuati hours. Branch on inhaler Rinse mouth after each use. rosuvastati 2021-09 Yes [id number] 10mg Take 1 [facility] n 10 mg 1-01 tablet by ity of tablet 00:00: mouth at [place] 00 bedtime. Medical Branch diltiazem 2021-09 Yes [id number] 120mg Take 1 [facility] n[facility] 120 mg 24 1-01 capsule by [facility]y of hr capsule 00:00: mouth in [place] 00 the Medical morning Branch and 1 capsule in the evening. fluticasone 2021-09 Yes [id number] 2{puff} Inhale 2 [facility] propionate 1-01 Puffs ity of (FLOVENT 00:00: every 12 [place] HFA) 110 00 (twelve) Medical mcg/actuati hours. Branch on inhaler Rinse mouth after each use. rosuvastati 2021-09 Yes [id number] 10mg Take 1 [facility] n 10 mg 1-01 tablet by ity of tablet 00:00: mouth at [place] 00 bedtime. Medical Branch diltiazem 2021-09 Yes [id number] 120mg Take 1 [facility] 120 mg 24 1-01 capsule by [facility] of hr capsule 00:00: mouth in [place] 00 the Medical morning Branch and 1 capsule in the evening. fluticasone 2021-09 Yes [id number] 2{puff} Inhale 2 [facility] propionate 1-01 Puffs ity of (FLOVENT 00:00: every 12 [place] HFA) 110 00 (twelve) Medical mcg/actuati hours. Branch on inhaler Rinse mouth after each use. rosuvastati 2021-09 Yes [id number] 10mg Take 1 [facility] n 10 mg 1-01 tablet by ity of tablet 00:00: mouth at [place] 00 bedtime. Medical Branch diltiazem 2021-09 Yes [id number] 120mg Take 1 [facility] 120 mg 24 1-01 capsule by [facility] of hr capsule 00:00: mouth in [place] 00 the Medical morning Branch and 1 capsule in the evening. fluticasone 2021-09 Yes [id number] 2{puff} Inhale 2 [facility] propionate 1-01 Puffs ity of (FLOVENT 00:00: every 12 [place] HFA) 110 00 (twelve) Medical mcg/actuati hours. Branch on inhaler Rinse mouth after each use. rosuvastati 2021-09 Yes [id number] 10mg Take 1 [facility] n 10 mg 1-01 tablet by ity of tablet 00:00: mouth at [place] 00 bedtime. Medical Branch diltiazem 2021-09 Yes [id number] 120mg Take 1 [facility] n[facility] 120 mg 24 1-01 capsule by ity of hr capsule 00:00: mouth in [place] 00 the Medical morning Branch and 1 capsule in the evening. fluticasone 2021-09 Yes [id number] 2{puff} Inhale 2 [facility] propionate 1-01 Puffs ity of (FLOVENT 00:00: every 12 [place] HFA) 110 00 (twelve) Medical mcg/actuati hours. Branch on inhaler Rinse mouth after each use. rosuvastati 2021-09 Yes [id number] 10mg Take 1 [facility] n 10 mg 1-01 tablet by ity of tablet 00:00: mouth at [place] 00 bedtime. Medical Branch diltiazem 2021-09 Yes [id number] 120mg Take 1 [facility] nivers 120 mg 24 1-01 capsule by ity of hr capsule 00:00: mouth in [place] 00 the Medical morning Branch and 1 capsule in the evening. fluticasone 2021-09 Yes [id number] 2{puff} Inhale 2 [facility] propionate 1-01 Puffs ity of (FLOVENT 00:00: every 12 [place] HFA) 110 00 (twelve) Medical mcg/actuati hours. Branch on inhaler Rinse mouth after each use. rosuvastati 2021-09 Yes [id number] 10mg Take 1 [facility] n 10 mg 1-01 tablet by ity of tablet 00:00: mouth at [place] 00 bedtime. Medical Branch diltiazem 2021-09 Yes [id number] 120mg Take 1 [facility] nivers 120 mg 24 1-01 capsule by ity of hr capsule 00:00: mouth in [place] 00 the Medical morning Branch and 1 capsule in the evening. fluticasone 2021-09 Yes [id number] 2{puff} Inhale 2 [facility] propionate 1-01 Puffs ity of (FLOVENT 00:00: every 12 [place] HFA) 110 00 (twelve) Medical mcg/actuati hours. Branch on inhaler Rinse mouth after each use. rosuvastati 2021-09 Yes [id number] 10mg Take 1 [facility] n 10 mg 1-01 tablet by ity of tablet 00:00: mouth at [place] 00 bedtime. Medical Branch diltiazem 2021-09 Yes [id number] 120mg Take 1 [facility] nivers 120 mg 24 1-01 capsule by ity of hr capsule 00:00: mouth in [place] 00 the Medical morning Branch and 1 capsule in the evening. fluticasone 2021-09 Yes [id number] 2{puff} Inhale 2 [facility] propionate 1-01 Puffs ity of (FLOVENT 00:00: every 12 [place] HFA) 110 00 (twelve) Medical mcg/actuati hours. Branch on inhaler Rinse mouth after each use. rosuvastati 2021-09 Yes [id number] 10mg Take 1 [facility] n 10 mg 1-01 tablet by ity of tablet 00:00: mouth at [place] 00 bedtime. Medical Branch diltiazem 2021-09 Yes [id number] 120mg Take 1 [facility] nivers 120 mg 24 1-01 capsule by ity of hr capsule 00:00: mouth in [place] 00 the Medical morning Branch and 1 capsule in the evening. fluticasone 2021-09 Yes [id number] 2{puff} Inhale 2 [facility] propionate 1-01 Puffs ity of (FLOVENT 00:00: every 12 [place] HFA) 110 00 (twelve) Medical mcg/actuati hours. Branch on inhaler Rinse mouth after each use. rosuvastati 2021-09 Yes [id number] 10mg Take 1 [facility] n 10 mg 1-01 tablet by ity of tablet 00:00: mouth at [place] 00 bedtime. Medical Branch diltiazem 2021-09 Yes [id number] 120mg Take 1 [facility] nivers 120 mg 24 1-01 capsule by ity of hr capsule 00:00: mouth in [place] 00 the Medical morning Branch and 1 capsule in the evening. fluticasone 2021-09 Yes [id number] 2{puff} Inhale 2 [facility] propionate 1-01 Puffs ity of (FLOVENT 00:00: every 12 [place] HFA) 110 00 (twelve) Medical mcg/actuati hours. Branch on inhaler Rinse mouth after each use. rosuvastati 2021-09 Yes [id number] 10mg Take 1 [facility] n 10 mg 1-01 tablet by ity of tablet 00:00: mouth at [place] 00 bedtime. Medical Branch diltiazem 2021-09 Yes [id number] 120mg Take 1 [facility] nivers 120 mg 24 1-01 capsule by ity of hr capsule 00:00: mouth in [place] 00 the Medical morning Branch and 1 capsule in the evening. fluticasone 2021-09 Yes [id number] 2{puff} Inhale 2 [facility] propionate 1-01 Puffs ity of (FLOVENT 00:00: every 12 [place] HFA) 110 00 (twelve) Medical mcg/actuati hours. Branch on inhaler Rinse mouth after each use. rosuvastati 2021-09 Yes [id number] 10mg Take 1 [facility] n 10 mg 1-01 tablet by ity of tablet 00:00: mouth at [place] 00 bedtime. Medical Branch diltiazem 2021-09 Yes [id number] 120mg Take 1 [facility] nivers 120 mg 24 1-01 capsule by ity of hr capsule 00:00: mouth in [place] 00 the Medical morning Branch and 1 capsule in the evening. fluticasone 2021-09 Yes [id number] 2{puff} Inhale 2 [facility] propionate 1-01 Puffs ity of (FLOVENT 00:00: every 12 [place] HFA) 110 00 (twelve) Medical mcg/actuati hours. Branch on inhaler Rinse mouth after each use. rosuvastati 2021-09 Yes [id number] 10mg Take 1 [facility] n 10 mg 1-01 tablet by ity of tablet 00:00: mouth at [place] 00 bedtime. Medical Branch diltiazem 2021-09 Yes [id number] 120mg Take 1 [facility] nivers 120 mg 24 1-01 capsule by ity of hr capsule 00:00: mouth in [place] 00 the Medical morning Branch and 1 capsule in the evening. fluticasone 2021-09 Yes [id number] 2{puff} Inhale 2 [facility] propionate 1-01 Puffs ity of (FLOVENT 00:00: every 12 [place] HFA) 110 00 (twelve) Medical mcg/actuati hours. Branch on inhaler Rinse mouth after each use. rosuvastati 2021-09 Yes [id number] 10mg Take 1 [facility] n 10 mg 1-01 tablet by ity of tablet 00:00: mouth at [place] 00 bedtime. Medical Branch diltiazem 2021-09 Yes [id number] 120mg Take 1 [facility] nivers 120 mg 24 1-01 capsule by ity of hr capsule 00:00: mouth in [place] 00 the Medical morning Branch and 1 capsule in the evening. fluticasone 2021-09 Yes [id number] 2{puff} Inhale 2 [facility] propionate 1-01 Puffs ity of (FLOVENT 00:00: every 12 [place] HFA) 110 00 (twelve) Medical mcg/actuati hours. Branch on inhaler Rinse mouth after each use. rosuvastati 2021-09 Yes [id number] 10mg Take 1 [facility] n 10 mg 1-01 tablet by ity of tablet 00:00: mouth at [place] 00 bedtime. Medical Branch diltiazem 2021-09 Yes [id number] 120mg Take 1 [facility] nivers 120 mg 24 1-01 capsule by ity of hr capsule 00:00: mouth in [place] 00 the Medical morning Branch and 1 capsule in the evening. fluticasone 2021-09 Yes [id number] 2{puff} Inhale 2 [facility] propionate 1-01 Puffs ity of (FLOVENT 00:00: every 12 [place] HFA) 110 00 (twelve) Medical mcg/actuati hours. Branch on inhaler Rinse mouth after each use. rosuvastati 2021-09 Yes [id number] 10mg Take 1 [facility] n 10 mg 1-01 tablet by ity of tablet 00:00: mouth at [place] 00 bedtime. Medical Branch diltiazem 2021-09 Yes [id number] 120mg Take 1 [facility] nivers 120 mg 24 1-01 capsule by ity of hr capsule 00:00: mouth in [place] 00 the Medical morning Branch and 1 capsule in the evening. fluticasone 2021-09 Yes [id number] 2{puff} Inhale 2 [facility] propionate 09-26 Puffs ity of (FLOVENT 00:00: every 12 [place] HFA) 110 00 (twelve) Medical mcg/actuati hours. Branch on inhaler Rinse mouth after each use. rosuvastati 2021-09 Yes [id number] 10mg Take 1 [facility] n 10 mg 09-26 tablet by ity of tablet 00:00: mouth at [place] 00 bedtime. Medical Branch metformin 2021-09- No [id number] 500mg Take 1 [facility] ER 500 mg 09-26 tablet by ity of 24 hr 00:00: 00:00 mouth [place] tablet 00 :00 daily with Medical breakfast. Branch pantoprazol 2021-09- No [id number] 40mg Take 1 [facility] e 40 mg EC 09-26 tablet by ity of tablet 00:00: 00:00 mouth in [place] 00 :00 the Medical morning. Branch SUMAtriptan 2021-09- No [id number] 50mg Take 1 [facility] 50 mg 09-26 tablet by ity of tablet 00:00: 00:00 mouth as [place] 00 :00 needed for Medical Migraine. Branch metformin 2021-09- No [id number] 500mg Take 1 [facility] ER 500 mg 09-26 tablet by ity of 24 hr 00:00: 00:00 mouth [place] tablet 00 :00 daily with Medical breakfast. Branch pantoprazol 2021-09- No [id number] 40mg Take 1 [facility] e 40 mg EC 09-26 tablet by ity of tablet 00:00: 00:00 mouth in [place] 00 :00 the Medical morning. Branch SUMAtriptan 2021-09- No [id number] 50mg Take 1 [facility] 50 mg 09-26 tablet by ity of tablet 00:00: 00:00 mouth as [place] 00 :00 needed for Medical Migraine. Branch metformin 2021-09- No [id number] 500mg Take 1 [facility] ER 500 mg 09-26 tablet by ity of 24 hr 00:00: 00:00 mouth [place] tablet 00 :00 daily with Medical breakfast. Branch pantoprazol 2021-09- No [id number] 40mg Take 1 [facility] e 40 mg EC 09-26 tablet by ity of tablet 00:00: 00:00 mouth in [place] 00 :00 the Medical morning. Branch SUMAtriptan 2021-09- No [id number] 50mg Take 1 [facility] 50 mg 09-26 tablet by ity of tablet 00:00: 00:00 mouth as [place] 00 :00 needed for Medical Migraine. Branch metformin 2021-09- No [id number] 500mg Take 1 [facility] ER 500 mg 09-26 tablet by ity of 24 hr 00:00: 00:00 mouth [place] tablet 00 :00 daily with Medical breakfast. Branch pantoprazol 2021-09- No [id number] 40mg Take 1 [facility] e 40 mg EC 09-26 tablet by ity of tablet 00:00: 00:00 mouth in [place] 00 :00 the Medical morning. Branch SUMAtriptan 2021-09- No [id number] 50mg Take 1 [facility] 50 mg 09-26 tablet by ity of tablet 00:00: 00:00 mouth as [place] 00 :00 needed for Medical Migraine. Branch metformin 2021-09- No [id number] 500mg Take 1 [facility] ER 500 mg 09-26 tablet by ity of 24 hr 00:00: 00:00 mouth [place] tablet 00 :00 daily with Medical breakfast. Branch pantoprazol 2021-09- No [id number] 40mg Take 1 [facility] e 40 mg EC 09-26 tablet by ity of tablet 00:00: 00:00 mouth in [place] 00 :00 the Medical morning. Branch SUMAtriptan 2021-09- No [id number] 50mg Take 1 [facility] 50 mg 09-26 tablet by ity of tablet 00:00: 00:00 mouth as [place] 00 :00 needed for Medical Migraine. Branch pregabalin 2021-09- No [id number] 150mg Take 1 [facility] 150 mg 09-2614 capsule by ity of capsule 00:00: 00:00 mouth in [place] 00 :00 the Medical morning Branch and 1 capsule at noon and 1 capsule in the evening. levothyroxi 2021-09- No [id number] 50ug Take 1 [facility] ne 50 mcg 09-26 tablet by ity of tablet 00:00: 00:00 mouth [place] 00 :00 every Medical morning. Branch levothyroxi 2021-09- No [id number] 50ug Take 1 [facility] ne 50 mcg 09-26 tablet by ity of tablet 00:00: 00:00 mouth [place] 00 :00 every Medical morning. Branch busPIRone 2021-09 Yes [id number] 20mg Take 2 [facility] 10 mg 0-13 tablets by ity of tablet 00:00: mouth in [place] 00 the Medical morning Branch and 2 tablets in the evening. diltiazem 2021-09 Yes [id number] 120mg Take 1 [facility] nivers 120 mg 24 0-13 capsule by ity of hr capsule 00:00: mouth in [place] 00 the Medical morning Branch and 1 capsule in the evening. levothyroxi 2021-09 Yes [id number] 50ug Take 1 [facility] ne 50 mcg 0-13 tablet by ity o f tablet 00:00: mouth [place] 00 every Medical morning. Branch losartan 50 2021-09 Yes [id number] 50mg Take 1 [facility] mg tablet 0-13 tablet by ity o f 00:00: mouth in [place] 00 the Medical morning Branch and 1 tablet in the evening. metformin 2021-09 Yes [id number] 500mg Take 1 [facility] nivers ER 500 mg 0-13 tablet by ity o f 24 hr 00:00: mouth [place] tablet 00 daily with Medical breakfast. Branch STOP REGULAR METFORMIN. mirabegron 2021-09 Yes [id number] 50mg Take 1 [facility] (MYRBETRIQ) 0-13 tablet by ity of 50 mg 00:00: mouth in [place] tablet 00 the Medical morning. Branch semaglutide 2021-09 Yes [id number] Inject [facility] (OZEMPIC) 0-13 0.25 mg ity of 0.25 mg or 00:00: under the [place] 0.5 mg(2 00 skin Medical mg/1.5 mL) weekly. Branch PnIj pantoprazol 2021-09 Yes [id number] 40mg Take 1 [facility] e 40 mg EC 0-13 tablet by ity of tablet 00:00: mouth in [place] 00 the Medical morning. Branch pregabalin 2021-09 Yes [id number] 150mg Take 1 [facility] 150 mg 0-13 capsule by ity of capsule 00:00: mouth in [place] 00 the Medical morning Branch and 1 capsule at noon and 1 capsule in the evening. rosuvastati 2021-09 Yes [id number] 10mg Take 1 [facility] n 10 mg 0-13 tablet by ity of tablet 00:00: mouth at [place] [address] bedtime. Medical Branch SUMAtriptan 2021-09 Yes [id number] 50mg Take 1 [facility] 50 mg 0-13 tablet by ity of tablet 00:00: mouth as [place] [address] needed for Medical Migraine. Branch topiramate 2021-09 Yes [id number] 75mg Take 3 [facility] 25 mg 0-13 tablets by ity of tablet 00:00: mouth in [place] 00 the Medical morning Branch and 3 tablets in the evening. busPIRone 2021-09 Yes [id number] 20mg Take 2 [facility] 10 mg 0-13 tablets by ity of tablet 00:00: mouth in [place] 00 the Medical morning Branch and 2 tablets in the evening. losartan 50 2021-09 Yes [id number] 50mg Take 1 [facility] mg tablet 0-13 tablet by ity o f 00:00: mouth in [place] 00 the Medical morning Branch and 1 tablet in the evening. mirabegron 2021-09 Yes [id number] 50mg Take 1 [facility] (MYRBETRIQ) 0-13 tablet by ity of 50 mg 00:00: mouth in [facility] 00 the Medical morning. Branch semaglutide 2021-09 Yes [id number] Inject [facility] (OZEMPIC) 0-13 0.25 mg ity of 0.25 mg or 00:00: under the [place] 0.5 mg(2 00 skin Medical mg/1.5 mL) weekly. Branch PnIj topiramate 2021-09 Yes [id number] 75mg Take 3 [facility] 25 mg 0-13 tablets by ity of tablet 00:00: mouth in [place] 00 the Medical morning Branch and 3 tablets in the evening. busPIRone 2021-09 Yes [id number] 20mg Take 2 [facility] [place] 10 mg 0-13 tablets by ity of tablet 00:00: mouth in [place] 00 the Medical morning Branch and 2 tablets in the evening. losartan 50 2021-09 Yes [id number] 50mg Take 1 [facility] mg tablet 0-13 tablet by ity o f 00:00: mouth in [place] 00 the Medical morning Branch and 1 tablet in the evening. mirabegron 2021-09 Yes [id number] 50mg Take 1 [facility] (MYRBETRIQ) 0-13 tablet by ity of 50 mg 00:00: mouth in [place] tablet 00 the Medical morning. Branch semaglutide 2021-09 Yes [id number] Inject [facility] (OZEMPIC) 0-13 0.25 mg ity of 0.25 mg or 00:00: under the [place] 0.5 mg(2 00 skin Medical mg/1.5 mL) weekly. Branch PnIj topiramate 2021-09 Yes [id number] 75mg Take 3 [facility] 25 mg 0-13 tablets by ity of tablet 00:00: mouth in [place] 00 the Medical morning Branch and 3 tablets in the evening. busPIRone 2021-09 Yes [id number] 20mg Take 2 [facility] [place] 10 mg 0-13 tablets by ity of tablet 00:00: mouth in [place] 00 the Medical morning Branch and 2 tablets in the evening. losartan 50 2021-09 Yes [id number] 50mg Take 1 [facility] mg tablet 0-13 tablet by ity o f 00:00: mouth in [place] 00 the Medical morning Branch and 1 tablet in the evening. mirabegron 2021-09 Yes [id number] 50mg Take 1 [facility] (MYRBETRIQ) 0-13 tablet by ity of 50 mg 00:00: mouth in [place] tablet 00 the Medical morning. Branch semaglutide 2021-09 Yes [id number] Inject [facility] (OZEMPIC) 0-13 0.25 mg ity of 0.25 mg or 00:00: under the [place] 0.5 mg(2 00 skin Medical mg/1.5 mL) weekly. Branch PnIj topiramate 2021-09 Yes [id number] 75mg Take 3 [facility] 25 mg 0-13 tablets by ity of tablet 00:00: mouth in [place] 00 the Medical morning Branch and 3 tablets in the evening. busPIRone 2021-09 Yes [id number] 20mg Take 2 [facility] [place] 10 mg 0-13 tablets by ity of tablet 00:00: mouth in [place] 00 the Medical morning Branch and 2 tablets in the evening. losartan 50 2021-09 Yes [id number] 50mg Take 1 [facility] mg tablet 0-13 tablet by ity o f 00:00: mouth in [place] 00 the Medical morning Branch and 1 tablet in the evening. mirabegron 2021-09 Yes [id number] 50mg Take 1 [facility] (MYRBETRIQ) 0-13 tablet by ity of 50 mg 00:00: mouth in [place] tablet 00 the Medical morning. Branch semaglutide 2021-09 Yes [id number] Inject [facility] (OZEMPIC) 0-13 0.25 mg ity of 0.25 mg or 00:00: under the [place] 0.5 mg(2 00 skin Medical mg/1.5 mL) weekly. Branch PnIj topiramate 2021-09 Yes [id number] 75mg Take 3 [facility] 25 mg 0-13 tablets by ity of tablet 00:00: mouth in [place] 00 the Medical morning Branch and 3 tablets in the evening. busPIRone 2021-09 Yes [id number] 20mg Take 2 [facility] [place] 10 mg 0-13 tablets by ity of tablet 00:00: mouth in [place] 00 the Medical morning Branch and 2 tablets in the evening. losartan 50 2021-09 Yes [id number] 50mg Take 1 [facility] mg tablet 0-13 tablet by ity o f 00:00: mouth in [place] 00 the Medical morning Branch and 1 tablet in the evening. mirabegron 2021-09 Yes [id number] 50mg Take 1 [facility] (MYRBETRIQ) 0-13 tablet by ity of 50 mg 00:00: mouth in [place] tablet 00 the Medical morning. Branch semaglutide 2021-09 Yes [id number] Inject [facility] (OZEMPIC) 0-13 0.25 mg ity of 0.25 mg or 00:00: under the [place] 0.5 mg(2 00 skin Medical mg/1.5 mL) weekly. Branch PnIj topiramate 2021-09 Yes [id number] 75mg Take 3 [facility] 25 mg 0-13 tablets by [facility] of tablet 00:00: mouth in [place] 00 the Medical morning Branch and 3 tablets in the evening. busPIRone 2021-09 Yes [id number] 20mg Take 2 [facility] 10 mg 0-13 tablets by [facility] of tablet 00:00: mouth in [place] 00 the Medical morning Branch and 2 tablets in the evening. losartan 50 2021-09 Yes [id number] 50mg Take 1 [facility] mg tablet 0-13 tablet by ity o f 00:00: mouth in [place] 00 the Medical morning Branch and 1 tablet in the evening. mirabegron 2021-09 Yes [id number] 50mg Take 1 [facility] (MYRBETRIQ) 0-13 tablet by ity of 50 mg 00:00: mouth in [place] tablet 00 the Medical morning. Branch semaglutide 2021-09 Yes [id number] Inject [facility] (OZEMPIC) 0-13 0.25 mg ity of 0.25 mg or 00:00: under the [place] 0.5 mg(2 00 skin Medical mg/1.5 mL) weekly. Branch PnIj topiramate 2021-09 Yes [id number] 75mg Take 3 [facility] 25 mg 0-13 tablets by [facility] of tablet 00:00: mouth in [place] 00 the Medical morning Branch and 3 tablets in the evening. busPIRone 2021-09 Yes [id number] 20mg Take 2 [facility] [place] 10 mg 0-13 tablets by [facility] of tablet 00:00: mouth in [place] 00 the Medical morning Branch and 2 tablets in the evening. losartan 50 2021-09 Yes [id number] 50mg Take 1 [facility] mg tablet 0-13 tablet by ity o f 00:00: mouth in [place] 00 the Medical morning Branch and 1 tablet in the evening. mirabegron 2021-09 Yes [id number] 50mg Take 1 [facility] (MYRBETRIQ) 0-13 tablet by ity of 50 mg 00:00: mouth in [place] tablet 00 the Medical morning. Branch semaglutide 2021-09 Yes [id number] Inject [facility] (OZEMPIC) 0-13 0.25 mg ity of 0.25 mg or 00:00: under the [place] 0.5 mg(2 00 skin Medical mg/1.5 mL) weekly. Branch PnIj topiramate 2021-09 Yes [id number] 75mg Take 3 [facility] 25 mg 0-13 tablets by [facility] of tablet 00:00: mouth in [place] 00 the Medical morning Branch and 3 tablets in the evening. busPIRone 2021-09 Yes [id number] 20mg Take 2 [facility] [place] 10 mg 0-13 tablets by [facility] of tablet 00:00: mouth in [place] 00 the Medical morning Branch and 2 tablets in the evening. losartan 50 2021-09 Yes [id number] 50mg Take 1 [facility] mg tablet 0-13 tablet by ity o f 00:00: mouth in [place] 00 the Medical morning Branch and 1 tablet in the evening. mirabegron 2021-09 Yes [id number] 50mg Take 1 [facility] (MYRBETRIQ) 0-13 tablet by ity of 50 mg 00:00: mouth in [place] tablet 00 the Medical morning. Branch semaglutide 2021-09 Yes [id number] Inject [facility] (OZEMPIC) 0-13 0.25 mg ity of 0.25 mg or 00:00: under the [place] 0.5 mg(2 00 skin Medical mg/1.5 mL) weekly. Branch PnIj topiramate 2021-09 Yes [id number] 75mg Take 3 [facility] 25 mg 0-13 tablets by [facility] of tablet 00:00: mouth in [place] 00 the Medical morning Branch and 3 tablets in the evening. busPIRone 2021-09 Yes [id number] 20mg Take 2 [facility] [place] 10 mg 0-13 tablets by [facility] of tablet 00:00: mouth in [place] 00 the Medical morning Branch and 2 tablets in the evening. losartan 50 2021-09 Yes [id number] 50mg Take 1 [facility] mg tablet 0-13 tablet by ity o f 00:00: mouth in [place] 00 the Medical morning Branch and 1 tablet in the evening. mirabegron 2021-09 Yes [id number] 50mg Take 1 [facility] (MYRBETRIQ) 0-13 tablet by [facility] of 50 mg 00:00: mouth in [place] tablet 00 the Medical morning. Branch semaglutide 2021-09 Yes [id number] Inject [facility] (OZEMPIC) 0-13 0.25 mg ity of 0.25 mg or 00:00: under the [place] 0.5 mg(2 00 skin Medical mg/1.5 mL) weekly. Branch PnIj topiramate 2021-09 Yes [id number] 75mg Take 3 [facility] 25 mg 0-13 tablets by [facility] of tablet 00:00: mouth in [place] 00 the Medical morning Branch and 3 tablets in the evening. busPIRone 2021-09 Yes [id number] 20mg Take 2 [facility] [place] 10 mg 0-13 tablets by [facility] of tablet 00:00: mouth in [place] 00 the Medical morning Branch and 2 tablets in the evening. losartan 50 2021-09 Yes [id number] 50mg Take 1 [facility] mg tablet 0-13 tablet by ity o f 00:00: mouth in [place] 00 the Medical morning Branch and 1 tablet in the evening. mirabegron 2021-09 Yes [id number] 50mg Take 1 [facility] (MYRBETRIQ) 0-13 tablet by ity of 50 mg 00:00: mouth in [place] tablet 00 the Medical morning. Branch semaglutide 2021-09 Yes [id number] Inject [facility] (OZEMPIC) 0-13 0.25 mg ity of 0.25 mg or 00:00: under the [place] 0.5 mg(2 00 skin Medical mg/1.5 mL) weekly. Branch PnIj topiramate 2021-09 Yes [id number] 75mg Take 3 [facility] 25 mg 0-13 tablets by [facility] of tablet 00:00: mouth in [place] 00 the Medical morning Branch and 3 tablets in the evening. busPIRone 2021-09 Yes [id number] 20mg Take 2 [facility] [place] 10 mg 0-13 tablets by [facility] of tablet 00:00: mouth in [place] 00 the Medical morning Branch and 2 tablets in the evening. losartan 50 2021-09 Yes [id number] 50mg Take 1 [facility] mg tablet 0-13 tablet by ity o f 00:00: mouth in [place] 00 the Medical morning Branch and 1 tablet in the evening. mirabegron 2021-09 Yes [id number] 50mg Take 1 [facility] (MYRBETRIQ) 0-13 tablet by ity of 50 mg 00:00: mouth in [place] tablet 00 the Medical morning. Branch semaglutide 2021-09 Yes [id number] Inject [facility] (OZEMPIC) 0-13 0.25 mg ity of 0.25 mg or 00:00: under the [place] 0.5 mg(2 00 skin Medical mg/1.5 mL) weekly. Branch PnIj topiramate 2021-09 Yes [id number] 75mg Take 3 [facility] 25 mg 0-13 tablets by [facility] of tablet 00:00: mouth in [place] 00 the Medical morning Branch and 3 tablets in the evening. busPIRone 2021-09 Yes [id number] 20mg Take 2 [facility] [place] 10 mg 0-13 tablets by [facility] of tablet 00:00: mouth in [place] 00 the Medical morning Branch and 2 tablets in the evening. losartan 50 2021-09 Yes [id number] 50mg Take 1 [facility] mg tablet 0-13 tablet by ity o f 00:00: mouth in [place] 00 the Medical morning Branch and 1 tablet in the evening. mirabegron 2021-09 Yes [id number] 50mg Take 1 [facility] (MYRBETRIQ) 0-13 tablet by ity of 50 mg 00:00: mouth in [place] tablet 00 the Medical morning. Branch semaglutide 2021-09 Yes [id number] Inject [facility] (OZEMPIC) 0-13 0.25 mg ity of 0.25 mg or 00:00: under the [place] 0.5 mg(2 00 skin Medical mg/1.5 mL) weekly. Branch PnIj topiramate 2021-09 Yes [id number] 75mg Take 3 [facility] 25 mg 0-13 tablets by [facility] of tablet 00:00: mouth in [place] 00 the Medical morning Branch and 3 tablets in the evening. busPIRone 2021-09 Yes [id number] 20mg Take 2 [facility] [place] 10 mg 0-13 tablets by [facility] of tablet 00:00: mouth in [place] 00 the Medical morning Branch and 2 tablets in the evening. losartan 50 2021-09 Yes [id number] 50mg Take 1 [facility] mg tablet 0-13 tablet by ity o f 00:00: mouth in [place] 00 the Medical morning Branch and 1 tablet in the evening. mirabegron 2021-09 Yes [id number] 50mg Take 1 [facility] (MYRBETRIQ) 0-13 tablet by ity of 50 mg 00:00: mouth in [place] tablet 00 the Medical morning. Branch semaglutide 2021-09 Yes [id number] Inject [facility] (OZEMPIC) 0-13 0.25 mg ity of 0.25 mg or 00:00: under the [place] 0.5 mg(2 00 skin Medical mg/1.5 mL) weekly. Branch PnIj topiramate 2021-09 Yes [id number] 75mg Take 3 [facility] 25 mg 0-13 tablets by [facility] of tablet 00:00: mouth in [place] 00 the Medical morning Branch and 3 tablets in the evening. busPIRone 2021-09 Yes [id number] 20mg Take 2 [facility] 10 mg 0-13 tablets by [facility] of tablet 00:00: mouth in [place] 00 the Medical morning Branch and 2 tablets in the evening. losartan 50 2021-09 Yes [id number] 50mg Take 1 [facility] mg tablet 0-13 tablet by ity o f 00:00: mouth in [place] 00 the Medical morning Branch and 1 tablet in the evening. mirabegron 2021-09 Yes [id number] 50mg Take 1 [facility] (MYRBETRIQ) 0-13 tablet by it[facility] of 50 mg 00:00: mouth in [place] tablet 00 the Medical morning. Branch semaglutide 2021-09 Yes [id number] Inject [facility] (OZEMPIC) 0-13 0.25 mg ity of 0.25 mg or 00:00: under the [place] 0.5 mg(2 00 skin Medical mg/1.5 mL) weekly. Branch PnIj topiramate 2021-09 Yes [id number] 75mg Take 3 [facility] 25 mg 0-13 tablets by [facility] of tablet 00:00: mouth in [place] 00 the Medical morning Branch and 3 tablets in the evening. busPIRone 2021-09 Yes [id number] 20mg Take 2 [facility] [place] 10 mg 0-13 tablets by [facility] of tablet 00:00: mouth in [place] 00 the Medical morning Branch and 2 tablets in the evening. losartan 50 2021-09 Yes [id number] 50mg Take 1 [facility] mg tablet 0-13 tablet by ity o f 00:00: mouth in [place] 00 the Medical morning Branch and 1 tablet in the evening. mirabegron 2021-09 Yes [id number] 50mg Take 1 [facility] (MYRBETRIQ) 0-13 tablet by ity of 50 mg 00:00: mouth in [place] tablet 00 the Medical morning. Branch semaglutide 2021-09 Yes [id number] Inject [facility] (OZEMPIC) 0-13 0.25 mg ity of 0.25 mg or 00:00: under the [place] 0.5 mg(2 00 skin Medical mg/1.5 mL) weekly. Branch PnIj topiramate 2021-09 Yes [id number] 75mg Take 3 [facility] 25 mg 0-13 tablets by [facility] of tablet 00:00: mouth in [place] 00 the Medical morning Branch and 3 tablets in the evening. busPIRone 2021-09 Yes [id number] 20mg Take 2 [facility] 10 mg 0-13 tablets by [facility] of tablet 00:00: mouth in [place] 00 the Medical morning Branch and 2 tablets in the evening. losartan 50 2021-09 Yes [id number] 50mg Take 1 [facility] mg tablet 0-13 tablet by ity o f 00:00: mouth in [place] 00 the Medical morning Branch and 1 tablet in the evening. mirabegron 2021-09 Yes [id number] 50mg Take 1 [facility] (MYRBETRIQ) 0-13 tablet by ity of 50 mg 00:00: mouth in [place] tablet 00 the Medical morning. Branch semaglutide 2021-09 Yes [id number] Inject [facility] (OZEMPIC) 0-13 0.25 mg ity of 0.25 mg or 00:00: under the [place] 0.5 mg(2 00 skin Medical mg/1.5 mL) weekly. Branch PnIj topiramate 2021-09 Yes [id number] 75mg Take 3 [facility] 25 mg 0-13 tablets by [facility] of tablet 00:00: mouth in [place] 00 the Medical morning Branch and 3 tablets in the evening. busPIRone 2021-09 Yes [id number] 20mg Take 2 [facility] 10 mg 0-13 tablets by [facility] of tablet 00:00: mouth in [place] 00 the Medical morning Branch and 2 tablets in the evening. losartan 50 2021-09 Yes [id number] 50mg Take 1 [facility] mg tablet 0-13 tablet by ity o f 00:00: mouth in [place] 00 the Medical morning Branch and 1 tablet in the evening. mirabegron 2021-09 Yes [id number] 50mg Take 1 [facility] (MYRBETRIQ) 0-13 tablet by ity of 50 mg 00:00: mouth in [place] tablet 00 the Medical morning. Branch semaglutide 2021-09 Yes [id number] Inject [facility] (OZEMPIC) 0-13 0.25 mg ity of 0.25 mg or 00:00: under the [place] 0.5 mg(2 00 skin Medical mg/1.5 mL) weekly. Branch PnIj topiramate 2021-09 Yes [id number] 75mg Take 3 [facility] 25 mg 0-13 tablets by [facility] of tablet 00:00: mouth in [place] 00 the Medical morning Branch and 3 tablets in the evening. busPIRone 2021-09 Yes [id number] 20mg Take 2 [facility] 10 mg 0-13 tablets by [facility] of tablet 00:00: mouth in [place] 00 the Medical morning Branch and 2 tablets in the evening. losartan 50 2021-09 Yes [id number] 50mg Take 1 [facility] mg tablet 0-13 tablet by ity o f 00:00: mouth in [place] 00 the Medical morning Branch and 1 tablet in the evening. mirabegron 2021-09 Yes [id number] 50mg Take 1 [facility] (MYRBETRIQ) 0-13 tablet by ity of 50 mg 00:00: mouth in [place] tablet 00 the Medical morning. Branch semaglutide 2021-09 Yes [id number] Inject [facility] (OZEMPIC) 0-13 0.25 mg ity of 0.25 mg or 00:00: under the [place] 0.5 mg(2 00 skin Medical mg/1.5 mL) weekly. Branch PnIj topiramate 2021-09 Yes [id number] 75mg Take 3 [facility] 25 mg 0-13 tablets by [facility] of tablet 00:00: mouth in [place] 00 the Medical morning Branch and 3 tablets in the evening. busPIRone 2021-09 Yes [id number] 20mg Take 2 [facility] 10 mg 0-13 tablets by [facility] of tablet 00:00: mouth in [place] 00 the Medical morning Branch and 2 tablets in the evening. losartan 50 2021-09 Yes [id number] 50mg Take 1 [facility] mg tablet 0-13 tablet by ity o f 00:00: mouth in [place] 00 the Medical morning Branch and 1 tablet in the evening. mirabegron 2021-09 Yes [id number] 50mg Take 1 [facility] (MYRBETRIQ) 0-13 tablet by ity of 50 mg 00:00: mouth in [place] tablet 00 the Medical morning. Branch semaglutide 2021-09 Yes [id number] Inject [facility] (OZEMPIC) 0-13 0.25 mg ity of 0.25 mg or 00:00: under the [place] 0.5 mg(2 00 skin Medical mg/1.5 mL) weekly. Branch PnIj topiramate 2021-09 Yes [id number] 75mg Take 3 [facility] 25 mg 0-13 tablets by [facility] of tablet 00:00: mouth in [place] 00 the Medical morning Branch and 3 tablets in the evening. busPIRone 2021-09 Yes [id number] 20mg Take 2 [facility] 10 mg 0-13 tablets by [facility] of tablet 00:00: mouth in [place] 00 the Medical morning Branch and 2 tablets in the evening. losartan 50 2021-09 Yes [id number] 50mg Take 1 [facility] mg tablet 0-13 tablet by ity o f 00:00: mouth in [place] 00 the Medical morning Branch and 1 tablet in the evening. mirabegron 2021-09 Yes [id number] 50mg Take 1 [facility] (MYRBETRIQ) 0-13 tablet by ity of 50 mg 00:00: mouth in [place] tablet 00 the Medical morning. Branch semaglutide 2021-09 Yes [id number] Inject [facility] (OZEMPIC) 0-13 0.25 mg ity of 0.25 mg or 00:00: under the [place] 0.5 mg(2 00 skin Medical mg/1.5 mL) weekly. Branch PnIj topiramate 2021-09 Yes [id number] 75mg Take 3 [facility] 25 mg 0-13 tablets by [facility] of tablet 00:00: mouth in [place] 00 the Medical morning Branch and 3 tablets in the evening. busPIRone 2021-09 Yes [id number] 20mg Take 2 [facility] 10 mg 0-13 tablets by [facility] of tablet 00:00: mouth in [place] 00 the Medical morning Branch and 2 tablets in the evening. losartan 50 2021-09 Yes [id number] 50mg Take 1 [facility] mg tablet 0-13 tablet by ity o f 00:00: mouth in [place] 00 the Medical morning Branch and 1 tablet in the evening. mirabegron 2021-09 Yes [id number] 50mg Take 1 [facility] (MYRBETRIQ) 0-13 tablet by ity of 50 mg 00:00: mouth in [place] tablet 00 the Medical morning. Branch semaglutide 2021-09 Yes [id number] Inject [facility] (OZEMPIC) 0-13 0.25 mg ity of 0.25 mg or 00:00: under the [place] 0.5 mg(2 00 skin Medical mg/1.5 mL) weekly. Branch PnIj topiramate 2021-09 Yes [id number] 75mg Take 3 [facility] 25 mg 0-13 tablets by [facility] of tablet 00:00: mouth in [place] 00 the Medical morning Branch and 3 tablets in the evening. busPIRone 2021-09 Yes [id number] 20mg Take 2 [facility] 10 mg 0-13 tablets by [facility] of tablet 00:00: mouth in [place] 00 the Medical morning Branch and 2 tablets in the evening. losartan 50 2021-09 Yes [id number] 50mg Take 1 [facility] mg tablet 0-13 tablet by ity o f 00:00: mouth in [place] 00 the Medical morning Branch and 1 tablet in the evening. mirabegron 2021-09 Yes [id number] 50mg Take 1 [facility] (MYRBETRIQ) 0-13 tablet by ity of 50 mg 00:00: mouth in [place] tablet 00 the Medical morning. Branch semaglutide 2021-09 Yes [id number] Inject [facility] (OZEMPIC) 0-13 0.25 mg ity of 0.25 mg or 00:00: under the [place] 0.5 mg(2 00 skin Medical mg/1.5 mL) weekly. Branch PnIj topiramate 2021-09 Yes [id number] 75mg Take 3 [facility] 25 mg 0-13 tablets by [facility] of tablet 00:00: mouth in [place] the Medical morning Branch and 3 tablets in the evening. losartan 50 2021-09 Yes [id number] 50mg Take 1 [facility] mg tablet 0-13 tablet by ity o f 00:00: mouth in [place] 00 the Medical morning Branch and 1 tablet in the evening. mirabegron 2021-09 Yes [id number] 50mg Take 1 [facility] (MYRBETRIQ) 0-13 tablet by ity of 50 mg 00:00: mouth in [place] tablet 00 the Medical morning. Branch semaglutide 2021-09 Yes [id number] Inject [facility] (OZEMPIC) 0-13 0.25 mg ity of 0.25 mg or 00:00: under the [place] 0.5 mg(2 00 skin Medical mg/1.5 mL) weekly. Branch PnIj topiramate 2021-09 Yes [id number] 75mg Take 3 [facility] 25 mg 0-13 tablets by [facility] of tablet 00:00: mouth in [place] 00 the Medical morning Branch and 3 tablets in the evening. losartan 50 2021-09 Yes [id number] 50mg Take 1 [facility] mg tablet 0-13 tablet by ity o f 00:00: mouth in [place] 00 the Medical morning Branch and 1 tablet in the evening. mirabegron 2021-09 Yes [id number] 50mg Take 1 [facility] (MYRBETRIQ) 0-13 tablet by ity of 50 mg 00:00: mouth in [place] tablet 00 the Medical morning. Branch semaglutide 2021-09 Yes [id number] Inject [facility] (OZEMPIC) 0-13 0.25 mg ity of 0.25 mg or 00:00: under the [place] 0.5 mg(2 00 skin Medical mg/1.5 mL) weekly. Branch PnIj topiramate 2021-09 Yes [id number] 75mg Take 3 [facility] 25 mg 0-13 tablets by [facility] of tablet 00:00: mouth in [place] the Medical morning Branch and 3 tablets in the evening. losartan 50 2021-09 Yes [id number] 50mg Take 1 [facility] mg tablet 0-13 tablet by ity o f 00:00: mouth in [place] the Medical morning Branch and 1 tablet in the evening. mirabegron 2021-09 Yes [id number] 50mg Take 1 [facility] (MYRBETRIQ) 0-13 tablet by ity of 50 mg 00:00: mouth in [place] tablet 00 the Medical morning. Branch semaglutide 2021-09 Yes [id number] Inject [facility] (OZEMPIC) 0-13 0.25 mg ity of 0.25 mg or 00:00: under the [place] 0.5 mg(2 00 skin Medical mg/1.5 mL) weekly. Branch PnIj topiramate 2021-09 Yes [id number] 75mg Take 3 [facility] 25 mg 0-13 tablets by [facility] of tablet 00:00: mouth in [place] the Medical morning Branch and 3 tablets in the evening. losartan 50 2021-09 Yes [id number] 50mg Take 1 [facility] mg tablet 0-13 tablet by ity o f 00:00: mouth in [place] 00 the Medical morning Branch and 1 tablet in the evening. mirabegron 2021-09 Yes [id number] 50mg Take 1 [facility] (MYRBETRIQ) 0-13 tablet by ity of 50 mg 00:00: mouth in [place] tablet 00 the Medical morning. Branch semaglutide 2021-09 Yes [id number] Inject [facility] (OZEMPIC) 0-13 0.25 mg ity of 0.25 mg or 00:00: under the [place] 0.5 mg(2 00 skin Medical mg/1.5 mL) weekly. Branch PnIj topiramate 2021-09 Yes [id number] 75mg Take 3 [facility] 25 mg 0-13 tablets by [facility] of tablet 00:00: mouth in [place] 00 the Medical morning Branch and 3 tablets in the evening. losartan 50 2021-09 Yes [id number] 50mg Take 1 [facility] mg tablet 0-13 tablet by ity o f 00:00: mouth in [place] 00 the Medical morning Branch and 1 tablet in the evening. mirabegron 2021-09 Yes [id number] 50mg Take 1 [facility] (MYRBETRIQ) 0-13 tablet by ity of 50 mg 00:00: mouth in [place] tablet 00 the Medical morning. Branch semaglutide 2021-09 Yes [id number] Inject [facility] (OZEMPIC) 0-13 0.25 mg ity of 0.25 mg or 00:00: under the [place] 0.5 mg(2 00 skin Medical mg/1.5 mL) weekly. Branch PnIj topiramate 2021-09 Yes [id number] 75mg Take 3 [facility] 25 mg 0-13 tablets by [facility] of tablet 00:00: mouth in [place] 00 the Medical morning Branch and 3 tablets in the evening. losartan 50 2021-09 Yes [id number] 50mg Take 1 [facility] mg tablet 0-13 tablet by ity o f 00:00: mouth in [place] 00 the Medical morning Branch and 1 tablet in the evening. mirabegron 2021-09 Yes [id number] 50mg Take 1 [facility] (MYRBETRIQ) 0-13 tablet by ity of 50 mg 00:00: mouth in [place] tablet 00 the Medical morning. Branch semaglutide 2021-09 Yes [id number] Inject [facility] (OZEMPIC) 0-13 0.25 mg ity of 0.25 mg or 00:00: under the [place] 0.5 mg(2 00 skin Medical mg/1.5 mL) weekly. Branch PnIj topiramate 2021-09 Yes [id number] 75mg Take 3 [facility] 25 mg 0-13 tablets by [facility] of tablet 00:00: mouth in [place] 00 the Medical morning Branch and 3 tablets in the evening. losartan 50 2021-09 Yes [id number] 50mg Take 1 [facility] mg tablet 0-13 tablet by ity o f 00:00: mouth in [place] 00 the Medical morning Branch and 1 tablet in the evening. mirabegron 2021-09 Yes [id number] 50mg Take 1 [facility] (MYRBETRIQ) 0-13 tablet by ity of 50 mg 00:00: mouth in [place] tablet 00 the Medical morning. Branch semaglutide 2021-09 Yes [id number] Inject [facility] (OZEMPIC) 0-13 0.25 mg ity of 0.25 mg or 00:00: under the [place] 0.5 mg(2 00 skin Medical mg/1.5 mL) weekly. Branch PnIj topiramate 2021-09 Yes [id number] 75mg Take 3 [facility] 25 mg 0-13 tablets by [facility] of tablet 00:00: mouth in [place] 00 the Medical morning Branch and 3 tablets in the evening. losartan 50 2021-09 Yes [id number] 50mg Take 1 [facility] mg tablet 0-13 tablet by ity o f 00:00: mouth in [place] 00 the Medical morning Branch and 1 tablet in the evening. mirabegron 2021-09 Yes [id number] 50mg Take 1 [facility] (MYRBETRIQ) 0-13 tablet by ity of 50 mg 00:00: mouth in [place] tablet 00 the Medical morning. Branch semaglutide 2021-09 Yes [id number] Inject [facility] (OZEMPIC) 0-13 0.25 mg ity of 0.25 mg or 00:00: under the [place] 0.5 mg(2 00 skin Medical mg/1.5 mL) weekly. Branch PnIj topiramate 2021-09 Yes [id number] 75mg Take 3 [facility] 25 mg 0-13 tablets by [facility] of tablet 00:00: mouth in [place] 00 the Medical morning Branch and 3 tablets in the evening. losartan 50 2021-09 Yes [id number] 50mg Take 1 [facility] mg tablet 0-13 tablet by ity o f 00:00: mouth in [place] 00 the Medical morning Branch and 1 tablet in the evening. mirabegron 2021-09 Yes [id number] 50mg Take 1 [facility] (MYRBETRIQ) 0-13 tablet by ity of 50 mg 00:00: mouth in [place] tablet 00 the Medical morning. Branch semaglutide 2021-09 Yes [id number] Inject [facility] (OZEMPIC) 0-13 0.25 mg ity of 0.25 mg or 00:00: under the [place] 0.5 mg(2 00 skin Medical mg/1.5 mL) weekly. Branch PnIj topiramate 2021-09 Yes [id number] 75mg Take 3 [facility] 25 mg 0-13 tablets by [facility] of tablet 00:00: mouth in [place] 00 the Medical morning Branch and 3 tablets in the evening. losartan 50 2021-09 Yes [id number] 50mg Take 1 [facility] mg tablet 0-13 tablet by ity o f 00:00: mouth in [place] 00 the Medical morning Branch and 1 tablet in the evening. mirabegron 2021-09 Yes [id number] 50mg Take 1 [facility] (MYRBETRIQ) 0-13 tablet by ity of 50 mg 00:00: mouth in [place] tablet 00 the Medical morning. Branch semaglutide 2021-09 Yes [id number] Inject [facility] (OZEMPIC) 0-13 0.25 mg ity of 0.25 mg or 00:00: under the [place] 0.5 mg(2 00 skin Medical mg/1.5 mL) weekly. Branch PnIj topiramate 2021-09 Yes [id number] 75mg Take 3 [facility] 25 mg 0-13 tablets by [facility] of tablet 00:00: mouth in [place] 00 the Medical morning Branch and 3 tablets in the evening. losartan 50 2021-09 Yes [id number] 50mg Take 1 [facility] mg tablet 0-13 tablet by ity o f 00:00: mouth in [place] 00 the Medical morning Branch and 1 tablet in the evening. mirabegron 2021-09 Yes [id number] 50mg Take 1 [facility] (MYRBETRIQ) 0-13 tablet by [facility]y of 50 mg 00:00: mouth in [place] tablet 00 the Medical morning. Branch semaglutide 2021-09 Yes [id number] Inject [facility] (OZEMPIC) 0-13 0.25 mg ity of 0.25 mg or 00:00: under the [place] 0.5 mg(2 00 skin Medical mg/1.5 mL) weekly. Branch PnIj topiramate 2021-09 Yes [id number] 75mg Take 3 [facility] 25 mg 0-13 tablets by [facility] of tablet 00:00: mouth in [place] 00 the Medical morning Branch and 3 tablets in the evening. losartan 50 2021-09 Yes [id number] 50mg Take 1 [facility] mg tablet 0-13 tablet by ity o f 00:00: mouth in [place] 00 the Medical morning Branch and 1 tablet in the evening. mirabegron 2021-09 Yes [id number] 50mg Take 1 [facility] (MYRBETRIQ) 0-13 tablet by ity of 50 mg 00:00: mouth in [place] tablet 00 the Medical morning. Branch semaglutide 2021-09 Yes [id number] Inject [facility] (OZEMPIC) 0-13 0.25 mg ity of 0.25 mg or 00:00: under the [place] 0.5 mg(2 00 skin Medical mg/1.5 mL) weekly. Branch PnIj topiramate 2021-09 Yes [id number] 75mg Take 3 [facility] 25 mg 0-13 tablets by [facility] of tablet 00:00: mouth in [place] 00 the Medical morning Branch and 3 tablets in the evening. losartan 50 2021-09 Yes [id number] 50mg Take 1 [facility] mg tablet 0-13 tablet by ity o f 00:00: mouth in [place] 00 the Medical morning Branch and 1 tablet in the evening. mirabegron 2021-09 Yes [id number] 50mg Take 1 [facility] (MYRBETRIQ) 0-13 tablet by [facility]y of 50 mg 00:00: mouth in [place] tablet 00 the Medical morning. Branch semaglutide 2021-09 Yes [id number] Inject [facility] (OZEMPIC) 0-13 0.25 mg ity of 0.25 mg or 00:00: under the [place] 0.5 mg(2 00 skin Medical mg/1.5 mL) weekly. Branch PnIj topiramate 2021-09 Yes [id number] 75mg Take 3 [facility] 25 mg 0-13 tablets by [facility] of tablet 00:00: mouth in [place] 00 the Medical morning Branch and 3 tablets in the evening. losartan 50 2021-09 Yes [id number] 50mg Take 1 [facility] mg tablet 0-13 tablet by ity o f 00:00: mouth in [place] 00 the Medical morning Branch and 1 tablet in the evening. mirabegron 2021-09 Yes [id number] 50mg Take 1 [facility] (MYRBETRIQ) 0-13 tablet by ity of 50 mg 00:00: mouth in [place] tablet 00 the Medical morning. Branch semaglutide 2021-09 Yes [id number] Inject [facility] (OZEMPIC) 0-13 0.25 mg ity of 0.25 mg or 00:00: under the [place] 0.5 mg(2 00 skin Medical mg/1.5 mL) weekly. Branch PnIj topiramate 2021-09 Yes [id number] 75mg Take 3 [facility] 25 mg 0-13 tablets by [facility] of tablet 00:00: mouth in [place] 00 the Medical morning Branch and 3 tablets in the evening. losartan 50 2021-09 Yes [id number] 50mg Take 1 [facility] mg tablet 0-13 tablet by ity o f 00:00: mouth in [place] 00 the Medical morning Branch and 1 tablet in the evening. mirabegron 2021-09 Yes [id number] 50mg Take 1 [facility] (MYRBETRIQ) 0-13 tablet by [facility]y of 50 mg 00:00: mouth in [place] tablet 00 the Medical morning. Branch semaglutide 2021-09 Yes [id number] Inject [facility] (OZEMPIC) 0-13 0.25 mg ity of 0.25 mg or 00:00: under the [place] 0.5 mg(2 00 skin Medical mg/1.5 mL) weekly. Branch PnIj topiramate 2021-09 Yes [id number] 75mg Take 3 [facility] 25 mg 0-13 tablets by [facility] of tablet 00:00: mouth in [place] 00 the Medical morning Branch and 3 tablets in the evening. losartan 50 2021-09 Yes [id number] 50mg Take 1 [facility] mg tablet 0-13 tablet by ity o f 00:00: mouth in [place] 00 the Medical morning Branch and 1 tablet in the evening. mirabegron 2021-09 Yes [id number] 50mg Take 1 [facility] (MYRBETRIQ) 0-13 tablet by ity of 50 mg 00:00: mouth in [place] tablet 00 the Medical morning. [facility] semaglutide 2021-09 Yes [id number] Inject [facility] (OZEMPIC) 0-13 0.25 mg ity of 0.25 mg or 00:00: under the [place] 0.5 mg(2 00 skin Medical mg/1.5 mL) weekly. [facility] PnIj topiramate 2021-09 Yes [id number] 75mg Take 3 [facility] 25 mg 0-13 tablets by [facility] of tablet 00:00: mouth in [place] 00 the Medical morning Branch and 3 tablets in the evening. losartan 50 2021-09 Yes [id number] 50mg Take 1 [facility] mg tablet 0-13 tablet by ity o f 00:00: mouth in [place] 00 the Medical morning Branch and 1 tablet in the evening. mirabegron 2021-09 Yes [id number] 50mg Take 1 [facility] (MYRBETRIQ) 0-13 tablet by ity of 50 mg 00:00: mouth in [place] tablet 00 the Medical morning. Branch semaglutide 2021-09 Yes [id number] Inject [facility] (OZEMPIC) 0-13 0.25 mg ity of 0.25 mg or 00:00: under the [place] 0.5 mg(2 00 skin Medical mg/1.5 mL) weekly. [facility] PnIj topiramate 2021-09 Yes [id number] 75mg Take 3 [facility] 25 mg 0-13 tablets by [facility] of tablet 00:00: mouth in [place] the Medical morning Branch and 3 tablets in the evening. losartan 50 2021-09 Yes [id number] 50mg Take 1 [facility] mg tablet 0-13 tablet by ity o f 00:00: mouth in [place] the Medical morning Branch and 1 tablet in the evening. mirabegron 2021-09 Yes [id number] 50mg Take 1 [facility] (MYRBETRIQ) 0-13 tablet by ity of 50 mg 00:00: mouth in [place] tablet 00 the Medical morning. Branch semaglutide 2021-09 Yes [id number] Inject [facility] (OZEMPIC) 0-13 0.25 mg ity of 0.25 mg or 00:00: under the [place] 0.5 mg(2 00 skin Medical mg/1.5 mL) weekly. [facility] PnIj topiramate 2021-09 Yes [id number] 75mg Take 3 [facility] 25 mg 0-13 tablets by [facility] of tablet 00:00: mouth in [place] 00 the Medical morning Branch and 3 tablets in the evening. losartan 50 2021-09 Yes [id number] 50mg Take 1 [facility] mg tablet 0-13 tablet by ity o f 00:00: mouth in [place] 00 the Medical morning Branch and 1 tablet in the evening. mirabegron 2021-09 Yes [id number] 50mg Take 1 [facility] (MYRBETRIQ) 0-13 tablet by ity of 50 mg 00:00: mouth in [place] tablet 00 the Medical morning. Branch semaglutide 2021-09 Yes [id number] Inject [facility] (OZEMPIC) 0-13 0.25 mg ity of 0.25 mg or 00:00: under the [place] 0.5 mg(2 00 skin Medical mg/1.5 mL) weekly. Branch PnIj topiramate 2021-09 Yes [id number] 75mg Take 3 [facility] 25 mg 0-13 tablets by [facility] of tablet 00:00: mouth in [place] 00 the Medical morning Branch and 3 tablets in the evening. losartan 50 2021-09 Yes [id number] 50mg Take 1 [facility] mg tablet 0-13 tablet by ity o f 00:00: mouth in [place] 00 the Medical morning Branch and 1 tablet in the evening. mirabegron 2021-09 Yes [id number] 50mg Take 1 [facility] (MYRBETRIQ) 0-13 tablet by ity of 50 mg 00:00: mouth in [place] tablet 00 the Medical morning. Branch semaglutide 2021-09 Yes [id number] Inject [facility] (OZEMPIC) 0-13 0.25 mg ity of 0.25 mg or 00:00: under the [place] 0.5 mg(2 00 skin Medical mg/1.5 mL) weekly. Branch PnIj topiramate 2021-09 Yes [id number] 75mg Take 3 [facility] 25 mg 0-13 tablets by it[facility] of tablet 00:00: mouth in [place] the Medical morning Branch and 3 tablets in the evening. losartan 50 2021-09 Yes [id number] 50mg Take 1 [facility] mg tablet 0-13 tablet by ity o f 00:00: mouth in [place] 00 the Medical morning Branch and 1 tablet in the evening. mirabegron 2021-09 Yes [id number] 50mg Take 1 [facility] (MYRBETRIQ) 0-13 tablet by ity of 50 mg 00:00: mouth in [place] tablet 00 the Medical morning. Branch semaglutide 2021-09 Yes [id number] Inject [facility] (OZEMPIC) 0-13 0.25 mg ity of 0.25 mg or 00:00: under the [place] 0.5 mg(2 00 skin Medical mg/1.5 mL) weekly. Branch PnIj topiramate 2021-09 Yes [id number] 75mg Take 3 [facility] 25 mg 0-13 tablets by [facility] of tablet 00:00: mouth in [place] 00 the Medical morning Branch and 3 tablets in the evening. losartan 50 2021-09 Yes [id number] 50mg Take 1 [facility] mg tablet 0-13 tablet by ity o f 00:00: mouth in [place] 00 the Medical morning Branch and 1 tablet in the evening. mirabegron 2021-09 Yes [id number] 50mg Take 1 [facility] (MYRBETRIQ) 0-13 tablet by ity of 50 mg 00:00: mouth in [place] tablet 00 the Medical morning. Branch topiramate 2021-09 Yes [id number] 75mg Take 3 [facility] 25 mg 0-13 tablets by [facility] of tablet 00:00: mouth in [place] 00 the Medical morning Branch and 3 tablets in the evening. losartan 50 2021-09 Yes [id number] 50mg Take 1 [facility] mg tablet 0-13 tablet by ity o f 00:00: mouth in [place] 00 the Medical morning Branch and 1 tablet in the evening. mirabegron 2021-09 Yes [id number] 50mg Take 1 [facility] (MYRBETRIQ) 0-13 tablet by ity of 50 mg 00:00: mouth in [place] tablet 00 the Medical morning. Branch topiramate 2021-09 Yes [id number] 75mg Take 3 [facility] 25 mg 0-13 tablets by [facility] of tablet 00:00: mouth in [place] 00 the Medical morning Branch and 3 tablets in the evening. losartan 50 2021-09 Yes [id number] 50mg Take 1 [facility] mg tablet 0-13 tablet by ity o f 00:00: mouth in [place] 00 the Medical morning Branch and 1 tablet in the evening. mirabegron 2021-09 Yes [id number] 50mg Take 1 [facility] (MYRBETRIQ) 0-13 tablet by ity of 50 mg 00:00: mouth in [place] tablet 00 the Medical morning. Branch topiramate 2021-09 Yes [id number] 75mg Take 3 [facility] 25 mg 0-13 tablets by [facility] of tablet 00:00: mouth in [place] 00 the Medical morning Branch and 3 tablets in the evening. losartan 50 2021-09 Yes [id number] 50mg Take 1 [facility] mg tablet 0-13 tablet by ity o f 00:00: mouth in [place] 00 the Medical morning Branch and 1 tablet in the evening. mirabegron 2021-09 Yes [id number] 50mg Take 1 [facility] (MYRBETRIQ) 0-13 tablet by ity of 50 mg 00:00: mouth in [place] tablet 00 the Medical morning. Branch topiramate 2021-09 Yes [id number] 75mg Take 3 [facility] 25 mg 0-13 tablets by [facility] of tablet 00:00: mouth in [place] 00 the Medical morning Branch and 3 tablets in the evening. losartan 50 2021-09 Yes [id number] 50mg Take 1 [facility] mg tablet 0-13 tablet by ity o f 00:00: mouth in [place] 00 the Medical morning Branch and 1 tablet in the evening. mirabegron 2021-09 Yes [id number] 50mg Take 1 [facility] (MYRBETRIQ) 0-13 tablet by ity of 50 mg 00:00: mouth in [place] tablet 00 the Medical morning. Branch topiramate 2021-09 Yes [id number] 75mg Take 3 [facility] 25 mg 0-13 tablets by ity of tablet 00:00: mouth in [place] 00 the Medical morning Branch and 3 tablets in the evening. losartan 50 2021-09 Yes [id number] 50mg Take 1 [facility] mg tablet 0-13 tablet by ity o f 00:00: mouth in [place] 00 the Medical morning Branch and 1 tablet in the evening. mirabegron 2021-09 Yes [id number] 50mg Take 1 [facility] (MYRBETRIQ) 0-13 tablet by ity of 50 mg 00:00: mouth in [place] tablet 00 the Medical morning. Branch topiramate 2021-09 Yes [id number] 75mg Take 3 [facility] 25 mg 0-13 tablets by [facility] of tablet 00:00: mouth in [place] 00 the Medical morning Branch and 3 tablets in the evening. losartan 50 2021-09 Yes [id number] 50mg Take 1 [facility] mg tablet 0-13 tablet by ity o f 00:00: mouth in [place] 00 the Medical morning Branch and 1 tablet in the evening. mirabegron 2021-09 Yes [id number] 50mg Take 1 [facility] (MYRBETRIQ) 0-13 tablet by ity of 50 mg 00:00: mouth in [place] tablet 00 the Medical morning. Branch topiramate 2021-09 Yes [id number] 75mg Take 3 [facility] 25 mg 0-13 tablets by [facility]y of tablet 00:00: mouth in [place] 00 the Medical morning Branch and 3 tablets in the evening. losartan 50 2021-09 Yes [id number] 50mg Take 1 [facility] mg tablet 0-13 tablet by ity o f 00:00: mouth in [place] 00 the Medical morning Branch and 1 tablet in the evening. mirabegron 2021-09 Yes [id number] 50mg Take 1 [facility] (MYRBETRIQ) 0-13 tablet by ity of 50 mg 00:00: mouth in [place] tablet 00 the Medical morning. Branch topiramate 2021-09 Yes [id number] 75mg Take 3 [facility] 25 mg 0-13 tablets by ity of tablet 00:00: mouth in [place] 00 the Medical morning Branch and 3 tablets in the evening. losartan 50 2021-09 Yes [id number] 50mg Take 1 [facility] mg tablet 0-13 tablet by ity o f 00:00: mouth in [place] 00 the Medical morning Branch and 1 tablet in the evening. mirabegron 2021-09 Yes [id number] 50mg Take 1 [facility] (MYRBETRIQ) 0-13 tablet by ity of 50 mg 00:00: mouth in [place] tablet 00 the Medical morning. Branch topiramate 2021-09 Yes [id number] 75mg Take 3 [facility] 25 mg 0-13 tablets by ity of tablet 00:00: mouth in [place] 00 the Medical morning Branch and 3 tablets in the evening. losartan 50 2021-09 Yes [id number] 50mg Take 1 [facility] mg tablet 0-13 tablet by ity o f 00:00: mouth in [place] 00 the Medical morning Branch and 1 tablet in the evening. mirabegron 2021-09 Yes [id number] 50mg Take 1 [facility] (MYRBETRIQ) 0-13 tablet by ity of 50 mg 00:00: mouth in [place] tablet 00 the Medical morning. Branch topiramate 2021-09 Yes [id number] 75mg Take 3 [facility] 25 mg 0-13 tablets by ity of tablet 00:00: mouth in [place] 00 the Medical morning Branch and 3 tablets in the evening. losartan 50 2021-09 Yes [id number] 50mg Take 1 [facility] mg tablet 0-13 tablet by ity o f 00:00: mouth in [place] 00 the Medical morning Branch and 1 tablet in the evening. mirabegron 2021-09 Yes [id number] 50mg Take 1 [facility] (MYRBETRIQ) 0-13 tablet by ity of 50 mg 00:00: mouth in [place] tablet 00 the Medical morning. Branch topiramate 2021-09 Yes [id number] 75mg Take 3 [facility] 25 mg 0-13 tablets by ity of tablet 00:00: mouth in [place] 00 the Medical morning Branch and 3 tablets in the evening. losartan 50 2021-09 Yes [id number] 50mg Take 1 [facility] mg tablet 0-13 tablet by ity o f 00:00: mouth in [place] 00 the Medical morning Branch and 1 tablet in the evening. mirabegron 2021-09 Yes [id number] 50mg Take 1 [facility] (MYRBETRIQ) 0-13 tablet by ity of 50 mg 00:00: mouth in [place] tablet 00 the Medical morning. Branch topiramate 2021-09 Yes [id number] 75mg Take 3 [facility] 25 mg 0-13 tablets by ity of tablet 00:00: mouth in [place] 00 the Medical morning Branch and 3 tablets in the evening. losartan 50 2021-09 Yes [id number] 50mg Take 1 [facility] mg tablet 0-13 tablet by ity o f 00:00: mouth in [place] 00 the Medical morning Branch and 1 tablet in the evening. mirabegron 2021-09 Yes [id number] 50mg Take 1 [facility] (MYRBETRIQ) 0-13 tablet by ity of 50 mg 00:00: mouth in [place] tablet 00 the Medical morning. Branch topiramate 2021-09 Yes [id number] 75mg Take 3 [facility] 25 mg 0-13 tablets by ity of tablet 00:00: mouth in [place] 00 the Medical morning Branch and 3 tablets in the evening. losartan 50 2021-09 Yes [id number] 50mg Take 1 [facility] mg tablet 0-13 tablet by ity o f 00:00: mouth in [place] 00 the Medical morning Branch and 1 tablet in the evening. mirabegron 2021-09 Yes [id number] 50mg Take 1 [facility] (MYRBETRIQ) 0-13 tablet by ity of 50 mg 00:00: mouth in [place] tablet 00 the Medical morning. Branch topiramate 2021-09 Yes [id number] 75mg Take 3 [facility] 25 mg 0-13 tablets by ity of tablet 00:00: mouth in [place] 00 the Medical morning Branch and 3 tablets in the evening. losartan 50 2021-09 Yes [id number] 50mg Take 1 [facility] mg tablet 0-13 tablet by ity o f 00:00: mouth in [place] 00 the Medical morning Branch and 1 tablet in the evening. mirabegron 2021-09 Yes [id number] 50mg Take 1 [facility] (MYRBETRIQ) 0-13 tablet by ity of 50 mg 00:00: mouth in [place] tablet 00 the Medical morning. Branch topiramate 2021-09 Yes [id number] 75mg Take 3 [facility] 25 mg 0-13 tablets by ity of tablet 00:00: mouth in [place] 00 the Medical morning Branch and 3 tablets in the evening. losartan 50 2021-09 Yes [id number] 50mg Take 1 [facility] mg tablet 0-13 tablet by ity o f 00:00: mouth in [place] 00 the Medical morning Branch and 1 tablet in the evening. mirabegron 2021-09 Yes [id number] 50mg Take 1 [facility] (MYRBETRIQ) 0-13 tablet by ity of 50 mg 00:00: mouth in [place] tablet 00 the Medical morning. Branch topiramate 2021-09 Yes [id number] 75mg Take 3 [facility] 25 mg 0-13 tablets by ity of tablet 00:00: mouth in [place] 00 the Medical morning Branch and 3 tablets in the evening. losartan 50 2021-09 Yes [id number] 50mg Take 1 [facility] mg tablet 0-13 tablet by ity o f 00:00: mouth in [place] 00 the Medical morning Branch and 1 tablet in the evening. mirabegron 2021-09 Yes [id number] 50mg Take 1 [facility] (MYRBETRIQ) 0-13 tablet by ity of 50 mg 00:00: mouth in [place] tablet 00 the Medical morning. Branch topiramate 2021-09 Yes [id number] 75mg Take 3 [facility] 25 mg 0-13 tablets by ity of tablet 00:00: mouth in [place] 00 the Medical morning Branch and 3 tablets in the evening. losartan 50 2021-09 Yes [id number] 50mg Take 1 [facility] mg tablet 0-13 tablet by ity o f 00:00: mouth in [place] 00 the Medical morning Branch and 1 tablet in the evening. topiramate 2021-09 Yes [id number] 75mg Take 3 [facility] 25 mg 0-13 tablets by ity of tablet 00:00: mouth in [place] 00 the Medical morning Branch and 3 tablets in the evening. losartan 50 2021-09 Yes [id number] 50mg Take 1 [facility] mg tablet 0-13 tablet by ity o f 00:00: mouth in [place] 00 the Medical morning Branch and 1 tablet in the evening. topiramate 2021-09 Yes [id number] 75mg Take 3 [facility] 25 mg 0-13 tablets by ity of tablet 00:00: mouth in [place] 00 the Medical morning Branch and 3 tablets in the evening. losartan 50 2021-09 Yes [id number] 50mg Take 1 [facility] mg tablet 0-13 tablet by ity o f 00:00: mouth in [place] 00 the Medical morning Branch and 1 tablet in the evening. topiramate 2021-09 Yes [id number] 75mg Take 3 [facility] 25 mg 0-13 tablets by ity of tablet 00:00: mouth in [place] 00 the Medical morning Branch and 3 tablets in the evening. losartan 50 2021-09 Yes [id number] 50mg Take 1 [facility] mg tablet 0-13 tablet by ity o f 00:00: mouth in [place] [address] the Medical morning Branch and 1 tablet in the evening. topiramate 2021-09 Yes [id number] 75mg Take 3 [facility] 25 mg 0-13 tablets by ity of tablet 00:00: mouth in [place] 00 the Medical morning Branch and 3 tablets in the evening. losartan 50 2021-09 Yes [id number] 50mg Take 1 [facility] mg tablet 0-13 tablet by ity o f 00:00: mouth in [place] 00 the Medical morning Branch and 1 tablet in the evening. topiramate 2021-09 Yes [id number] 75mg Take 3 [facility] 25 mg 0-13 tablets by ity of tablet 00:00: mouth in [place] 00 the Medical morning Branch and 3 tablets in the evening. losartan 50 2021-09 Yes [id number] 50mg Take 1 [facility] mg tablet 0-13 tablet by ity o f 00:00: mouth in [place] 00 the Medical morning Branch and 1 tablet in the evening. topiramate 2021-09 Yes [id number] 75mg Take 3 [facility] 25 mg 0-13 tablets by ity of tablet 00:00: mouth in [place] 00 the Medical morning Branch and 3 tablets in the evening. losartan 50 2021-09 Yes [id number] 50mg Take 1 [facility] mg tablet 0-13 tablet by ity o f 00:00: mouth in [place] 00 the Medical morning Branch and 1 tablet in the evening. topiramate 2021-09 Yes [id number] 75mg Take 3 [facility] 25 mg 0-13 tablets by ity of tablet 00:00: mouth in [place] 00 the Medical morning Branch and 3 tablets in the evening. losartan 50 2021-09 Yes [id number] 50mg Take 1 [facility] mg tablet 0-13 tablet by ity o f 00:00: mouth in [place] 00 the Medical morning Branch and 1 tablet in the evening. topiramate 2021-09 Yes [id number] 75mg Take 3 [facility] 25 mg 0-13 tablets by ity of tablet 00:00: mouth in [place] 00 the Medical morning Branch and 3 tablets in the evening. losartan 50 2021-09 Yes [id number] 50mg Take 1 [facility] mg tablet 0-13 tablet by ity o f 00:00: mouth in [place] 00 the Medical morning Branch and 1 tablet in the evening. topiramate 2021-09 Yes [id number] 75mg Take 3 [facility] 25 mg 0-13 tablets by ity of tablet 00:00: mouth in [place] 00 the Medical morning Branch and 3 tablets in the evening. losartan 50 2021-09 Yes [id number] 50mg Take 1 [facility] mg tablet 0-13 tablet by ity o f 00:00: mouth in [place] 00 the Medical morning Branch and 1 tablet in the evening. topiramate 2021-09 Yes [id number] 75mg Take 3 [facility] 25 mg 0-13 tablets by ity of tablet 00:00: mouth in [place] 00 the Medical morning Branch and 3 tablets in the evening. losartan 50 2021-09 Yes [id number] 50mg Take 1 [facility] mg tablet 0-13 tablet by ity o f 00:00: mouth in [place] 00 the Medical morning Branch and 1 tablet in the evening. topiramate 2021-09 Yes [id number] 75mg Take 3 [facility] 25 mg 0-13 tablets by ity of tablet 00:00: mouth in [place] 00 the Medical morning Branch and 3 tablets in the evening. losartan 50 2021-09 Yes [id number] 50mg Take 1 [facility] mg tablet 0-13 tablet by ity o f 00:00: mouth in [place] 00 the Medical morning Branch and 1 tablet in the evening. topiramate 2021-09 Yes [id number] 75mg Take 3 [facility] 25 mg 0-13 tablets by ity of tablet 00:00: mouth in [place] 00 the Medical morning Branch and 3 tablets in the evening. losartan 50 2021-09 Yes [id number] 50mg Take 1 [facility] mg tablet 0-13 tablet by ity o f 00:00: mouth in [place] 00 the Medical morning Branch and 1 tablet in the evening. topiramate 2021-1 Yes [id number] 75mg Take 3 [facility] 25 mg 0-13 tablets by ity of tablet 00:00: mouth in [place] 00 the Medical morning Branch and 3 tablets in the evening. losartan 50 2021-09 Yes [id number] 50mg Take 1 [facility] mg tablet 0-13 tablet by ity o f 00:00: mouth in [place] 00 the Medical morning Branch and 1 tablet in the evening. topiramate 2021-09 Yes [id number] 75mg Take 3 [facility] 25 mg 0-13 tablets by ity of tablet 00:00: mouth in [place] 00 the Medical morning Branch and 3 tablets in the evening. losartan 50 2021-09 Yes [id number] 50mg Take 1 [facility] mg tablet 0-13 tablet by ity o f 00:00: mouth in [place] 00 the Medical morning Branch and 1 tablet in the evening. topiramate 2021-09 Yes [id number] 75mg Take 3 [facility] 25 mg 0-13 tablets by ity of tablet 00:00: mouth in [place] 00 the Medical morning Branch and 3 tablets in the evening. losartan 50 2021-09 Yes [id number] 50mg Take 1 [facility] mg tablet 0-13 tablet by ity o f 00:00: mouth in [place] 00 the Medical morning Branch and 1 tablet in the evening. topiramate 2021-09 Yes [id number] 75mg Take 3 [facility] 25 mg 0-13 tablets by ity of tablet 00:00: mouth in [place] 00 the Medical morning Branch and 3 tablets in the evening. losartan 50 1 Yes [id number] 50mg Take 1 [facility] mg tablet 0-13 tablet by ity o f 00:00: mouth in [place] 00 the Medical morning Branch and 1 tablet in the evening. topiramate 2021-1 Yes [id number] 75mg Take 3 [facility] 25 mg 0-13 tablets by ity of tablet 00:00: mouth in [place] 00 the Medical morning Branch and 3 tablets in the evening. losartan 50 2021-09 Yes [id number] 50mg Take 1 [facility] mg tablet 0-13 tablet by ity o f 00:00: mouth in [place] 00 the Medical morning Branch and 1 tablet in the evening. topiramate 2021-09 Yes [id number] 75mg Take 3 [facility] 25 mg 0-13 tablets by ity of tablet 00:00: mouth in [place] 00 the Medical morning Branch and 3 tablets in the evening. losartan 50 2021-09 Yes [id number] 50mg Take 1 [facility] mg tablet 0-13 tablet by ity o f 00:00: mouth in [place] 00 the Medical morning Branch and 1 tablet in the evening. topiramate 2021-09 Yes [id number] 75mg Take 3 [facility] 25 mg 0-13 tablets by ity of tablet 00:00: mouth in [place] 00 the Medical morning Branch and 3 tablets in the evening. losartan 50 2021-09 Yes [id number] 50mg Take 1 [facility] mg tablet 0-13 tablet by ity o f 00:00: mouth in [place] 00 the Medical morning Branch and 1 tablet in the evening. topiramate 2021-09 Yes [id number] 75mg Take 3 [facility] 25 mg 0-13 tablets by ity of tablet 00:00: mouth in [place] 00 the Medical morning Branch and 3 tablets in the evening. losartan 50 2021-09 Yes [id number] 50mg Take 1 [facility] mg tablet 0-13 tablet by ity o f 00:00: mouth in [place] 00 the Medical morning Branch and 1 tablet in the evening. topiramate 2021-09 Yes [id number] 75mg Take 3 [facility] 25 mg 0-13 tablets by ity of tablet 00:00: mouth in [place] 00 the Medical morning Branch and 3 tablets in the evening. losartan 50 2021-09 Yes [id number] 50mg Take 1 [facility] mg tablet 0-13 tablet by ity o f 00:00: mouth in [place] 00 the Medical morning Branch and 1 tablet in the evening. topiramate 2021-09 Yes [id number] 75mg Take 3 [facility] 25 mg 0-13 tablets by ity of tablet 00:00: mouth in [place] 00 the Medical morning Branch and 3 tablets in the evening. losartan 50 2021-09 Yes [id number] 50mg Take 1 [facility] mg tablet 0-13 tablet by ity o f 00:00: mouth in [place] 00 the Medical morning Branch and 1 tablet in the evening. topiramate 2021-09 Yes [id number] 75mg Take 3 [facility] 25 mg 0-13 tablets by ity of tablet 00:00: mouth in [place] 00 the Medical morning Branch and 3 tablets in the evening. losartan 50 2021-09 Yes [id number] 50mg Take 1 [facility] mg tablet 0-13 tablet by ity o f 00:00: mouth in [place] 00 the Medical morning Branch and 1 tablet in the evening. topiramate 2021-09 Yes [id number] 75mg Take 3 [facility] 25 mg 0-13 tablets by ity of tablet 00:00: mouth in [place] 00 the Medical morning Branch and 3 tablets in the evening. losartan 50 2021-09 Yes [id number] 50mg Take 1 [facility] mg tablet 0-13 tablet by ity o f 00:00: mouth in [place] 00 the Medical morning Branch and 1 tablet in the evening. topiramate 2021-09 Yes [id number] 75mg Take 3 [facility] 25 mg 0-13 tablets by ity of tablet 00:00: mouth in [place] 00 the Medical morning Branch and 3 tablets in the evening. losartan 50 2021-09 Yes [id number] 50mg Take 1 [facility] mg tablet 0-13 tablet by ity o f 00:00: mouth in [place] 00 the Medical morning Branch and 1 tablet in the evening. topiramate 2021-09 Yes [id number] 75mg Take 3 [facility] 25 mg 0-13 tablets by ity of tablet 00:00: mouth in [place] 00 the Medical morning Branch and 3 tablets in the evening. losartan 50 2021-09 Yes [id number] 50mg Take 1 [facility] mg tablet 0-13 tablet by ity o f 00:00: mouth in [place] 00 the Medical morning Branch and 1 tablet in the evening. topiramate 2021-09 Yes [id number] 75mg Take 3 [facility] 25 mg 0-13 tablets by ity of tablet 00:00: mouth in [place] 00 the Medical morning Branch and 3 tablets in the evening. losartan 50 2021-09 Yes [id number] 50mg Take 1 [facility] mg tablet 0-13 tablet by ity o f 00:00: mouth in [place] 00 the Medical morning Branch and 1 tablet in the evening. topiramate 2021-09 Yes [id number] 75mg Take 3 [facility] 25 mg 0-13 tablets by ity of tablet 00:00: mouth in [place] 00 the Medical morning Branch and 3 tablets in the evening. losartan 50 2021-09 Yes [id number] 50mg Take 1 [facility] mg tablet 0-13 tablet by ity o f 00:00: mouth in [place] 00 the Medical morning Branch and 1 tablet in the evening. topiramate 2021-09 Yes [id number] 75mg Take 3 [facility] 25 mg 0-13 tablets by [facility]y of tablet 00:00: mouth in [place] 00 the Medical morning Branch and 3 tablets in the evening. mirabegron 2021-09- No [id number] 50mg Take 1 [facility] (MYRBETRIQ) 0-13 - tablet by it y of 50 mg 00:00: 00:00 mouth in [place] tablet 00 :00 the Medical morning. [place] mirabegron 2021-09- No [id number] 50mg Take 1 [facility] (MYRBETRIQ) 0-13 - tablet by it y of 50 mg 00:00: 00:00 mouth in [place] tablet 00 :00 the Medical morning. [place] mirabegron 2021-09- No [id number] 50mg Take 1 [facility] (MYRBETRIQ) 0-13 - tablet by it y of 50 mg 00:00: 00:00 mouth in [place] tablet 00 :00 the Medical morning. [place] semaglutide 2021-09- No [id number] Inject [facility] (OZEMPIC) 0-08 11-07 0.25 mg ity of 0.25 mg or 00:00: 00:00 under the [place] 0.5 mg(2 00 :00 skin Medical mg/1.5 mL) weekly. [place] PnIj semaglutide 2021-09- No [id number] Inject [facility] (OZEMPIC) 0- 02-07 0.25 mg ity of 0.25 mg or 00:00: 00:00 under the [place] 0.5 mg(2 00 :00 skin Medical mg/1.5 mL) weekly. [place] PnIj semaglutide 2021-09- No [id number] Inject [facility] (OZEMPIC) 0- 02-07 0.25 mg ity of 0.25 mg or 00:00: 00:00 under the [place] 0.5 mg(2 00 :00 skin Medical mg/1.5 mL) weekly. [place] semaglutide 2021-09- No [id number] Inject [facility] (OZEMPIC) 0 02-07 0.25 mg ity of 0.25 mg or 00:00: 00:00 [place] 0.5 mg(2 00 :00 skin Medical mg/1.5 mL) weekly. [place] [facility] semaglutide 2021-09- No [id number] Inject [facility] (OZEMPIC) 0 02-07 0.25 mg ity of 0.25 mg or 00:00: 00:00 under the [place] 0.5 mg(2 00 :00 skin Medical mg/1.5 mL) weekly. [place] [facility] semaglutide 2021-09- No [id number] Inject [facility] (OZEMPIC) 0- 0.25 mg ity of 0.25 mg or 00:00: 00:00 under the [place] 0.5 mg(2 00 :00 skin Medical mg/1.5 mL) weekly. [place] [facility] semaglutide 2021-09- No [id number] Inject [facility] (OZEMPIC) 0- 0.25 mg ity of 0.25 mg or 00:00: 00:00 under the [place] 0.5 mg(2 00 :00 skin Medical mg/1.5 mL) weekly. [place] [facility] semaglutide 2021-09- No [id number] Inject [facility] (OZEMPIC) 0- 0.25 mg ity of 0.25 mg or 00:00: 00:00 under the [place] 0.5 mg(2 00 :00 skin Medical mg/1.5 mL) weekly. [place] [facility] semaglutide 2021-09- No [id number] Inject [facility] (OZEMPIC) 0-07 0.25 mg ity of 0.25 mg or 00:00: 00:00 under the [place] 0.5 mg(2 00 :00 skin Medical mg/1.5 mL) weekly. [facility] semaglutide 2021-09- No [id number] Inject [facility] (OZEMPIC) 0 02-07 0.25 mg ity of 0.25 mg or 00:00: 00:00 under the [place] 0.5 mg(2 00 :00 skin Medical mg/1.5 mL) weekly. [facility] semaglutide 2021-09- No [id number] Inject [facility] (OZEMPIC) 011-02 0.25 mg ity of 0.25 mg or 00:00: 00:00 under the [place] 0.5 mg(2 00 :00 skin Medical mg/1.5 mL) weekly. [facility] semaglutide 2021-09- No [id number] Inject [facility] (OZEMPIC) 0- 0.25 mg ity of 0.25 mg or 00:00: 00:00 under the [place] 0.5 mg(2 00 :00 skin Medical mg/1.5 mL) weekly. [facility] semaglutide 2021-09- No [id number] Inject [facility] (OZEMPIC) 011-02 0.25 mg ity of 0.25 mg or 00:00: 00:00 under the [place] 0.5 mg(2 00 :00 skin Medical mg/1.5 mL) weekly. [facility] semaglutide 2021-09- No [id number] Inject [facility] (OZEMPIC) 011-02 0.25 mg ity of 0.25 mg or 00:00: 00:00 [place] the [place] 0.5 mg(2 00 :00 skin Medical mg/1.5 mL) weekly. [facility] busPIRone 2021-09- No [id number] 20mg Take 2 U nivers 10 mg 10-12 tablets by ity of tablet 00:00: 00:00 mouth in [place] 00 :00 the Medical morning Branch and 2 tablets in the evening. diltiazem 2021-09- No [id number] 120mg Take 1 [facility] 120 mg 24 07-27 capsule by ity of hr capsule 00:00: 00:00 mouth in [facility] 00 :00 the Medical morning Branch and 1 capsule in the evening. levothyroxi 2021-09- No [id number] 50ug Take 1 [facility] ne 50 mcg 07-27 tablet by ity of tablet 00:00: 00:00 mouth [place] 00 :00 every Medical morning. Branch metformin 2021-09- No [id number] 500mg Take 1 [facility] ER 500 mg 07-27 tablet by ity of 24 hr 00:00: 00:00 mouth [place] tablet 00 :00 daily with Medical breakfast. Branch STOP REGULAR METFORMIN. pantoprazol 2021-09- No [id number] 40mg Take 1 [facility] e 40 mg EC 07-27 tablet by ity of tablet 00:00: 00:00 mouth in [place] 00 :00 the Medical morning. Branch pregabalin 2021-09- No [id number] 150mg Take 1 [facility] 150 mg 07-27 capsule by ity of capsule 00:00: 00:00 mouth in [place] 00 :00 the Medical morning Branch and 1 capsule at noon and 1 capsule in the evening. rosuvastati 2021-09- No [id number] 10mg Take 1 [facility] n 10 mg 07-27 tablet by ity of tablet 00:00: 00:00 mouth at [place] 00 :00 bedtime. Medical Branch SUMAtriptan 2021-09- No [id number] 50mg Take 1 [facility] 50 mg 07-27 tablet by ity of tablet 00:00: 00:00 mouth as [place] 00 :00 needed for Medical Migraine. Branch diltiazem 2021-09- No [id number] 120mg Take 1 [facility] 120 mg 24 07-27 capsule by ity of hr capsule 00:00: 00:00 mouth in [facility] 00 :00 the Medical morning Branch and 1 capsule in the evening. levothyroxi 2021-09- No [id number] 50ug Take 1 [facility] ne 50 mcg 07-27 tablet by ity of tablet 00:00: 00:00 mouth [place] 00 :00 every Medical morning. Branch metformin 2021-09- No [id number] 500mg Take 1 [facility] ER 500 mg 07-27 tablet by ity of 24 hr 00:00: 00:00 mouth [place] tablet 00 :00 daily with Medical breakfast. Branch STOP REGULAR METFORMIN. pantoprazol 2021-09- No [id number] 40mg Take 1 [facility] e 40 mg EC 0-13 11-01 tablet by ity of tablet 00:00: 00:00 mouth in [place] 00 :00 the Medical morning. Branch pregabalin 2021-09- No [id number] 150mg Take 1 [facility] 150 mg 0-13 - capsule by ity of capsule 00:00: 00:00 mouth in [place] 00 :00 the Medical morning Branch and 1 capsule at noon and 1 capsule in the evening. rosuvastati 2021-09- No [id number] 10mg Take 1 [facility] n 10 mg 0-13 - tablet by ity of tablet 00:00: 00:00 mouth at [place] 00 :00 bedtime. Medical Branch SUMAtriptan 2021-09- No [id number] 50mg Take 1 [facility] 50 mg 0-13 - tablet by ity of tablet 00:00: 00:00 mouth as [place] 00 :00 needed for Medical Migraine. Branch SUMAtriptan Yes [id number] 50mg Take 1 [facility] 50 mg 9-30 tablet by ity of tablet 00:00: mouth as [place] 00 needed for Medical Migraine. Branch SUMAtriptan Yes [id number] 50mg Take 1 [facility] 50 mg 9-30 tablet by ity of tablet 00:00: mouth as [place] 00 needed for Medical Migraine. Branch SUMAtriptan Yes [id number] 50mg Take 1 [facility] 50 mg 9-30 tablet by ity of tablet 00:00: mouth as [place] 00 needed for Medical Migraine. Branch SUMAtriptan Yes [id number] 50mg Take 1 [facility] 50 mg 9-30 tablet by ity of tablet 00:00: mouth as [place] 00 needed for Medical Migraine. Branch SUMAtriptan Yes [id number] 50mg Take 1 [facility] 50 mg 9-30 tablet by ity of tablet 00:00: mouth as [place] 00 needed for Medical Migraine. Branch SUMAtriptan 2021- No [id number] 50mg Take 1 [facility] 50 mg 9-30 10-13 tablet by ity of tablet 00:00: 00:00 mouth as [place] 00 :00 needed for Medical Migraine. Branch FOLIC ACID Yes Take by [facility] ers ORAL 9-22 mouth ity of 10:41: daily. [place] 15 Medical Branch MULTIVIT Yes Take by Univer s &MINERALS/F -22 mouth. ity of ERROUS FUM 10:41: [place] (MULTI 15 Medical VITAMIN Branch ORAL) METHYLCELLU 0 Yes Univer s LOSE (FIBER 9-22 ity of THERAPY 10:41: [facility]) 15 Medical Branch [facility] SODI[facility] 9-22 mouth. ity of (COLACE [...] Branch unit) tablet CRANBERRY Yes [facility] FRUIT - mouth ity of EXTRACT 10:41: daily. [place] (CRANBERRY 15 Medical ORAL) Branch CALCIUM Yes Take by [facility] ORAL - mouth ity of 10:41: daily. [place] [address] Medical Branch DOCOSAHEXAN Yes 1000mg Take 1,000 [facility] OIC 9-22 mg by ity of ACID/EPA 10:41: mouth [place] (FISH OIL 15 daily. Medical ORAL) Branch BIOTIN ORAL Yes Take by Uni vers - mouth. ity of 10:41: [place] [address] Medical Branch FOLIC ACID Yes Take by Univ ers ORAL - mouth ity of 10:41: daily. [place] [address] Medical Branch [facility]IVIT [facility] &[facility]/F -22 mouth. ity of ERROUS FUM 10:41: [place] (MULTI 15 Medical VITAMIN Branch ORAL) METHYLCELLU 0 Yes Univer s LOSE (FIBER 9-22 ity of THERAPY 10:41: [facility]) 15 Medical Branch DOCUSATE 0 Yes [facility] SODIUM -22 mouth. ity of (COLACE [...] - mouth ity of EXTRACT 10:41: daily. [place] (CRANBERRY 15 Medical ORAL) Branch CALCIUM Yes Take by [facility] ORAL - mouth ity of 10:41: daily. [place] 15 Medical Branch DOCOSAHEXAN Yes 1000mg Take 1,000 [facility] OIC 9-22 mg by ity of ACID/EPA 10:41: mouth [place] (FISH OIL 15 daily. Medical ORAL) Branch BIOTIN ORAL Yes Take by [facility] vers 06-17 mouth. ity of 10:41: [place] [address] Medical Branch FOLIC ACID Yes Take by Univ ers ORAL 06-17 mouth ity of 10:41: daily. [place] [address] Medical Branch MULTIVIT Yes Take by Univer s &MINERALS/F 06-17 mouth. ity of ERROUS FUM 10:41: [place] (MULTI 15 Medical VITAMIN Branch ORAL) METHYLCELLU Yes Univer s LOSE (FIBER 06-17 ity of THERAPY 10:41: [place] MISC) 15 Medical Branch DOCUSATE Yes Take [...] - mouth ity of EXTRACT 10:41: daily. [place] (CRANBERRY 15 Medical ORAL) Branch CALCIUM Yes Take by [facility] ORAL -22 mouth ity of 10:41: daily. [place] 15 Medical Branch DOCOSAHEXAN Yes 1000mg Take 1,000 [facility] OIC 9-22 mg by ity of ACID/EPA 10:41: mouth [place] (FISH OIL 15 daily. Medical ORAL) Branch BIOTIN ORAL Yes Take by Uni vers 9-22 mouth. ity of 10:41: [place] 15 Medical Branch FOLIC ACID 0 Yes Take by Univ ers ORAL - mouth ity of 10:41: daily. [place] 15 Medical Branch MULTIVIT Yes Take by Univer s &MINERALS/F - mouth. ity of ERROUS FUM 10:41: [place] (MULTI 15 Medical VITAMIN Branch ORAL) METHYLCELLU 0 Yes Univer s LOSE (FIBER - ity of THERAPY 10:41: [facility]) Medical Branch DOCUSATE Yes [...] - mouth ity of EXTRACT 10:41: daily. [place] (CRANBERRY 15 Medical ORAL) Branch CALCIUM Yes Take by [facility] ORAL 9-22 mouth ity of 10:41: daily. [place] Medical Branch DOCOSAHEXAN Yes 1000mg Take 1,000 [facility] OIC 9-22 mg by ity of ACID/EPA 10:41: mouth [place] (FISH OIL 15 daily. Medical ORAL) Branch BIOTIN ORAL Yes Take by Uni vers 9-22 mouth. ity of 10:41: [place] 15 Medical Branch FOLIC ACID 0 Yes Take by Univ ers ORAL 9-22 mouth ity of 10:41: daily. [place] 15 Medical Branch MULTIVIT 0 Yes Take by Univer s &MINERALS/F -22 mouth. ity of ERROUS FUM 10:41: [place] (MULTI 15 Medical VITAMIN Branch ORAL) METHYLCELLU [...] Branch unit) tablet CRANBERRY Yes Take by [facility] rs FRUIT - mouth ity of EXTRACT 10:41: daily. [place] (CRANBERRY 15 Medical ORAL) Branch CALCIUM Yes Take by [facility] ORAL - mouth ity of 10:41: daily. [place] 15 Medical Branch DOCOSAHEXAN Yes 1000mg Take 1,000 [facility] OIC 9-22 mg by ity of ACID/EPA 10:41: mouth [place] (FISH OIL 15 daily. Medical ORAL) Branch BIOTIN ORAL Yes Take by Uni vers 06-17 mouth. ity of 10:41: [place] [address] Medical Branch FOLIC ACID Yes Take by Univ ers ORAL - mouth ity of 10:41: daily. [place] [address] Medical Branch MULTIVIT Yes Take by Univer s &MINERALS/F - mouth. ity of ERROUS FUM 10:41: [place] (MULTI 15 Medical VITAMIN Branch ORAL) METHYLCELLU Yes Univer s LOSE (FIBER - ity of THERAPY 10:41: [facility]) Medical Branch DOCUSATE Yes Take by Univer s SODIUM -22 mouth. ity of (COLACE 10:41: [place] ORAL) 15 Medical Branch vitamin C Yes [...] 06-17 mouth ity of EXTRACT 10:41: daily. [place] (CRANBERRY 15 Medical ORAL) Branch CALCIUM Yes Take by [facility] ORAL 06-17 mouth ity of 10:41: daily. [place] 15 Medical Branch DOCOSAHEXAN Yes 1000mg Take 1,000 [facility] OIC 9-22 mg by ity of ACID/EPA 10:41: mouth [place] (FISH OIL 15 daily. Medical ORAL) Branch BIOTIN ORAL Yes Take by Uni vers 06-17 mouth. ity of 10:41: [place] [address] Medical Branch FOLIC ACID Yes Take by Univ ers ORAL - mouth ity of 10:41: daily. [place] [address] Medical Branch MULTIVIT Yes Take by Unive rs &MINERALS/F 06-17 mouth. ity of ERROUS FUM 10:41: [place] (MULTI 15 Medical VITAMIN Branch ORAL) METHYLCELLU Yes Univer s LOSE (FIBER 06-17 ity of THERAPY 10:41: [place] MISC) Medical Branch DOCUSATE Yes Take by [...] - mouth ity of EXTRACT 10:41: daily. [place] (CRANBERRY 15 Medical ORAL) Branch CALCIUM Yes Take by [facility] ORAL - mouth ity of 10:41: daily. [place] 15 Medical Branch DOCOSAHEXAN Yes 1000mg Take 1,000 [facility] OIC 9-22 mg by ity of ACID/EPA 10:41: mouth [place] (FISH OIL 15 daily. Medical ORAL) Branch BIOTIN ORAL Yes Take by Uni vers - mouth. ity of 10:41: [place] [address] Medical Branch FOLIC ACID Yes Take by Univ ers ORAL - mouth ity of 10:41: daily. [place] 15 Medical Branch MULTIVIT Yes Take by Univer s &MINERALS/F -22 mouth. ity of ERROUS FUM 10:41: [place] (MULTI 15 Medical VITAMIN Branch ORAL) METHYLCELLU 0 Yes Univer s LOSE (FIBER 9-22 ity of THERAPY 10:41: [facility]) Medical Branch [facility]ATE [facility] SODI[facility] -22 mouth. ity of (COLACE [...] Branch unit) tablet CRANBERRY Yes Take by [facility] rs FRUIT 06-17 mouth ity of EXTRACT 10:41: daily. [place] (CRANBERRY 15 Medical ORAL) Branch CALCIUM Yes Take by [facility] ORAL - mouth ity of 10:41: daily. [place] 15 Medical Branch DOCOSAHEXAN Yes 1000mg Take 1,000 [facility] OIC 9-22 mg by ity of ACID/EPA 10:41: mouth [place] (FISH OIL 15 daily. Medical ORAL) Branch BIOTIN ORAL Yes Take by Uni vers - mouth. ity of 10:41: [place] [address] Medical Branch FOLIC ACID Yes Take by [facility] ers ORAL - mouth ity of 10:41: daily. [place] 15 Medical Branch MULTIVIT Yes [facility] &MINERALS/F -22 mouth. ity of ERROUS FUM 10:41: [place] (MULTI 15 Medical VITAMIN Branch ORAL) METHYLCELLU Yes Univer s LOSE (FIBER 9-22 ity of THERAPY 10:41: [facility]) Medical Branch DOCUSATE Yes [facility] SODIUM 9-22 mouth. ity of (COLACE [...] - mouth ity of EXTRACT 10:41: daily. [place] (CRANBERRY 15 Medical ORAL) Branch CALCIUM Yes Take by [facility] ORAL - mouth ity of 10:41: daily. [place] 15 Medical Branch DOCOSAHEXAN Yes 1000mg Take 1,000 [facility] OIC 9-22 mg by ity of ACID/EPA 10:41: mouth [place] (FISH OIL 15 daily. Medical ORAL) Branch BIOTIN ORAL Yes Take by Uni vers 06-17 mouth. ity of 10:41: [place] [address] Medical Branch FOLIC ACID Yes Take by Univ ers ORAL 06-17 mouth ity of 10:41: daily. [place] [address] Medical Branch MULTIVIT Yes Take by Univer s &MINERALS/F 06-17 mouth. ity of ERROUS FUM 10:41: [place] (MULTI 15 Medical VITAMIN Branch ORAL) METHYLCELLU Yes Univer s LOSE (FIBER 06-17 ity of THERAPY 10:41: [place] MISC) Medical Branch DOCUSATE Yes Take by [...] - mouth ity of EXTRACT 10:41: daily. [place] (CRANBERRY 15 Medical ORAL) Branch CALCIUM Yes Take by [facility] ORAL - mouth ity of 10:41: daily. [place] 15 Medical Branch DOCOSAHEXAN Yes 1000mg Take 1,000 [facility] OIC 9-22 mg by ity of ACID/EPA 10:41: mouth [place] (FISH OIL 15 daily. Medical ORAL) Branch BIOTIN ORAL Yes Take by Uni vers - mouth. ity of 10:41: [place] 15 Medical Branch FOLIC ACID Yes Take by Univ ers ORAL 06-17 mouth ity of 10:41: daily. [place] 15 Medical Branch MULTIVIT Yes Take by Univer s &MINERALS/F 06-17 mouth. ity of ERROUS FUM 10:41: [place] (MULTI 15 Medical VITAMIN Branch ORAL) METHYLCELLU [...] 06-17 mouth ity of EXTRACT 10:41: daily. [place] (CRANBERRY 15 Medical ORAL) Branch CALCIUM Yes Take by [facility] ORAL 06-17 mouth ity of 10:41: daily. [place] Medical Branch DOCOSAHEXAN Yes 1000mg Take 1,000 [facility] OIC 9-22 mg by ity of ACID/EPA 10:41: mouth [place] (FISH OIL 15 daily. Medical ORAL) Branch BIOTIN ORAL Yes Take by Uni vers - mouth. ity of 10:41: [place] 15 Medical Branch FOLIC ACID Yes Take by Univ ers ORAL - mouth ity of 10:41: daily. [place] 15 Medical Branch MULTIVIT Yes Take by Univer s &MINERALS/F - mouth. ity of ERROUS FUM 10:41: [place] (MULTI 15 Medical VITAMIN Branch ORAL) [facility]CELLU Yes [facility]-22 ity of THERAPY 10:41: [facility]) 15 Medical Branch DOCUSATE Yes [facility] SODIUM -22 mouth. ity of (COLACE [...] Branch unit) tablet CRANBERRY Yes Take by [facility] rs FRUIT 06-17 mouth ity of EXTRACT 10:41: daily. [place] (CRANBERRY 15 Medical ORAL) Branch CALCIUM Yes Take by [facility] ORAL 06-17 mouth ity of 10:41: daily. [place] 15 Medical Branch DOCOSAHEXAN Yes 1000mg Take 1,000 [facility] OIC 9-22 mg by ity of ACID/EPA 10:41: mouth [place] (FISH OIL 15 daily. Medical ORAL) Branch BIOTIN ORAL Yes Take by Uni vers 06-17 mouth. ity of 10:41: [place] 15 Medical Branch FOLIC ACID Yes Take by Univ ers ORAL - mouth ity of 10:41: daily. [place] 15 Medical Branch MULTIVIT Yes Take by [facility] s &MINERALS/F 06-17 mouth. ity of ERROUS FUM 10:41: [place] (MULTI 15 Medical VITAMIN Branch ORAL) METHYLCELLU Yes Univer s LOSE (FIBER 9-22 ity of THERAPY 10:41: [facility]) 15 Medical Branch DOCUSATE Yes [facility] SODIUM -22 mouth. ity of (COLACE 10:41: [place] ORAL) 15 Medical Branch vitamin C Yes [...] - mouth ity of EXTRACT 10:41: daily. [place] (CRANBERRY 15 Medical ORAL) Branch CALCIUM Yes Take by [facility] ORAL - mouth ity of 10:41: daily. [place] 15 Medical Branch DOCOSAHEXAN Yes 1000mg Take 1,000 [facility] OIC 9-22 mg by ity of ACID/EPA 10:41: mouth [place] (FISH OIL 15 daily. Medical ORAL) Branch BIOTIN ORAL Yes Take by Uni vers 06-17 mouth. ity of 10:41: [place] [address] Medical Branch FOLIC ACID Yes Take by Univ ers ORAL 06-17 mouth ity of 10:41: daily. [place] [address] Medical Branch MULTIVIT Yes Take by Univer s &MINERALS/F 06-17 mouth. ity of ERROUS FUM 10:41: [place] (MULTI 15 Medical VITAMIN Branch ORAL) METHYLCELLU Yes Univer s LOSE (FIBER 06-17 ity of THERAPY 10:41: [place] MISC) Medical Branch DOCUSATE Yes Take by [...] - mouth ity of EXTRACT 10:41: daily. [place] (CRANBERRY 15 Medical ORAL) Branch CALCIUM Yes Take by [facility] ORAL - mouth ity of 10:41: daily. [place] [address] Medical Branch DOCOSAHEXAN Yes 1000mg Take 1,000 [facility] OIC 9-22 mg by ity of ACID/EPA 10:41: mouth [place] (FISH OIL 15 daily. Medical ORAL) Branch BIOTIN ORAL Yes Take by [facility] vers 06-17 mouth. ity of 10:41: [place] 15 Medical Branch FOLIC ACID 0 Yes Take by Univ ers ORAL 06-17 mouth ity of 10:41: daily. [place] 15 Medical Branch MULTIVIT 0 Yes Take by Univer s &MINERALS/F 06-17 mouth. ity of ERROUS FUM 10:41: [place] (MULTI 15 Medical VITAMIN Branch ORAL) METHYLCELLU [...] Branch unit) tablet CRANBERRY Yes Take by [facility] rs FRUIT 06-17 mouth ity of EXTRACT 10:41: daily. [place] (CRANBERRY 15 Medical ORAL) Branch CALCIUM 0 Yes Take by [facility] ORAL 06-17 mouth ity of 10:41: daily. [place] 15 Medical Branch DOCOSAHEXAN Yes 1000mg Take 1,000 [facility] OIC 9-22 mg by ity of ACID/EPA 10:41: mouth [place] (FISH OIL 15 daily. Medical ORAL) Branch BIOTIN ORAL Yes Take by Uni vers 06-17 mouth. ity of 10:41: [place] 15 Medical Branch FOLIC ACID 0 Yes Take by Univ ers ORAL 06-17 mouth ity of 10:41: daily. [place] 15 Medical Branch MULTIVIT 0 Yes Take by Univer s &MINERALS/F 06-17 mouth. ity of ERROUS FUM 10:41: [place] (MULTI 15 Medical VITAMIN Branch ORAL) METHYLCELLU 2021-0 Yes Univer s LOSE (FIBER - ity of THERAPY 10:41: [facility]) Medical Branch vitamin C 0 [...] - mouth ity of EXTRACT 10:41: daily. [place] (CRANBERRY 15 Medical ORAL) Branch CALCIUM Yes Take by [facility]iver s ORAL - mouth ity of 10:41: daily. [place] 15 Medical Branch DOCOSAHEXAN Yes 1000mg Take 1,000 [facility] OIC 9-22 mg by ity of ACID/EPA 10:41: mouth [place] (FISH OIL 15 daily. Medical ORAL) Branch BIOTIN ORAL Yes Take by Uni vers 06-17 mouth. ity of 10:41: [place] [address] Medical Branch FOLIC ACID Yes Take by Univ ers ORAL - mouth ity of 10:41: daily. [place] [address] Medical Branch MULTIVIT [facility] &MIN[facility]ALS/F 06-17 mouth. ity of ERROUS FUM 10:41: [place] (MULTI 15 Medical VITAMIN Branch ORAL) METHYLCELLU Yes [facility] (FIBER 06-17 ity of THERAPY 10:41: [place] MIS) 15 Medical Branch vitamin C Yes [...] - mouth ity of EXTRACT 10:41: daily. [place] (CRANBERRY 15 Medical ORAL) Branch CALCIUM Yes Take by [facility] ORAL - mouth ity of 10:41: daily. [place] 15 Medical Branch DOCOSAHEXAN Yes 1000mg Take 1,000 [facility] OIC 9-22 mg by ity of ACID/EPA 10:41: mouth [place] (FISH OIL 15 daily. Medical ORAL) Branch BIOTIN ORAL Yes Take by Uni vers 06-17 mouth. ity of 10:41: [place] [address] Medical Branch FOLIC ACID 0 Yes Take by Univ ers ORAL - mouth ity of 10:41: daily. [place] 15 Medical Branch MULTIVIT 0 Yes Take by Univer s &MINERALS/F - mouth. ity of ERROUS FUM 10:41: [place] (MULTI 15 Medical VITAMIN Branch ORAL) METHYLCELLU [...] unit) tablet CRANBERRY 0 Yes Take by [facility] rs FRUIT - mouth ity of EXTRACT 10:41: daily. [place] (CRANBERRY 15 Medical ORAL) Branch CALCIUM Yes Take by [facility] ORAL - mouth ity of 10:41: daily. [place] 15 Medical Branch DOCOSAHEXAN 0 Yes 1000mg Take 1,000 [facility] OIC 9-22 mg by ity of ACID/EPA 10:41: mouth [place] (FISH OIL 15 daily. Medical ORAL) Branch BIOTIN ORAL 0 Yes Take by Uni vers - mouth. ity of 10:41: [place] [address] Medical Branch FOLIC ACID 0 Yes Take by Univ ers ORAL - mouth ity of 10:41: daily. [place] [address] Medical Branch MULTIVIT 0 Yes Take by Univer s &MINERALS/F - mouth. ity of ERROUS FUM 10:41: [place] (MULTI 15 Medical VITAMIN Branch ORAL) METHYLCELLU 2021-0 Yes Univer s LOSE (FIBER 9-22 ity of THERAPY 10:41: [facility]) 15 Medical Branch vitamin C 2021-0 Yes [...] 06-17 mouth ity of EXTRACT 10:41: daily. [place] (CRANBERRY 15 Medical ORAL) Branch CALCIUM Yes Take by Univers ORAL - mouth ity of 10:41: daily. [place] [address] Medical Branch DOCOSAHEXAN Yes 1000mg Take 1,000 [facility] OIC 9-22 mg by ity of ACID/EPA 10:41: mouth [place] (FISH OIL 15 daily. Medical ORAL) Branch BIOTIN ORAL Yes Take by Uni vers 06-17 mouth. ity of 10:41: [place] [address] Medical Branch FOLIC ACID Yes Take by Univ ers ORAL 06-17 mouth ity of 10:41: daily. [place] [address] Medical Branch MULTIVIT Yes Take by [facility] s &MINERALS/F 06-17 mouth. ity of ERROUS FUM 10:41: [place] (MULTI 15 Medical VITAMIN Branch ORAL) [facility]LLU [facility]-17 ity of THERAPY 10:41: [place] [address] Medical Branch vitamin C Yes 1000mg Take [...] 06-17 mouth ity of EXTRACT 10:41: daily. [place] (CRANBERRY 15 Medical ORAL) Branch CALCIUM Yes Take by [facility] ORAL - mouth ity of 10:41: daily. [place] [address] Medical Branch DOCOSAHEXAN Yes 1000mg Take 1,000 [facility] OIC 9-22 mg by ity of ACID/EPA 10:41: mouth [place] (FISH OIL 15 daily. Medical ORAL) Branch BIOTIN ORAL Yes Take by Uni vers 06-17 mouth. ity of 10:41: [place] [address] Medical Branch FOLIC ACID Yes Take by Univ ers ORAL - mouth ity of 10:41: daily. [place] [address] Medical Branch MULTIVIT 0 Yes Take by [facility] s &MINERALS/F -22 mouth. ity of ERROUS FUM 10:41: [place] (MULTI 15 Medical VITAMIN Branch ORAL) METHYLCELLU 0 Yes Univer s LOSE (FIBER 9-22 ity of THERAPY 10:41: [facility]) Medical Branch vitamin C 0 [...] - mouth ity of EXTRACT 10:41: daily. [place] (CRANBERRY 15 Medical ORAL) Branch CALCIUM Yes Take by [facility] ORAL - mouth ity of 10:41: daily. [place] [address] Medical Branch DOCOSAHEXAN Yes 1000mg Take 1,000 [facility] OIC 9-22 mg by ity of ACID/EPA 10:41: mouth [place] (FISH OIL 15 daily. Medical ORAL) Branch BIOTIN ORAL Yes Take by Uni vers - mouth. ity of 10:41: [place] [address] Medical Branch FOLIC ACID 0 Yes Take by Univ ers ORAL - mouth ity of 10:41: daily. [place] [address] Medical Branch MULTIVIT Yes Take by [facility] s &MINERALS/F -22 mouth. ity of ERROUS FUM 10:41: [place] (MULTI 15 Medical VITAMIN Branch ORAL) METHYLCELLU 2021-0 Yes Univer s LOSE (FIBER 9-22 ity of THERAPY 10:41: [facility]) Medical Branch vitamin C 0 [...] 06-17 mouth ity of EXTRACT 10:41: daily. [place] (CRANBERRY 15 Medical ORAL) Branch CALCIUM Yes Take by Univers ORAL 9- mouth ity of 10:41: daily. [place] [address] Medical Branch DOCOSAHEXAN Yes 1000mg Take 1,000 [facility] OIC 9-22 mg by ity of ACID/EPA 10:41: mouth [place] (FISH OIL 15 daily. Medical ORAL) Branch BIOTIN ORAL Yes Take by Uni vers 06-17 mouth. ity of 10:41: [place] [address] Medical Branch FOLIC ACID Yes Take by Univ ers ORAL 06-17 mouth ity of 10:41: daily. [place] [address] Medical Branch MULTIVIT Yes Take by [facility] s &MINERALS/F 06-17 mouth. ity of ERROUS FUM 10:41: [place] (MULTI 15 Medical VITAMIN Branch ORAL) [facility]LLU [facility] ([facility]-17 ity of THERAPY 10:41: [place] [address] Medical Branch vitamin C Yes 1000mg Take [...] 06-17 mouth ity of EXTRACT 10:41: daily. [place] (CRANBERRY 15 Medical ORAL) Branch CALCIUM Yes Take by [facility] ORAL - mouth ity of 10:41: daily. [place] [address] Medical Branch DOCOSAHEXAN Yes 1000mg Take 1,000 [facility] OIC 9-22 mg by ity of ACID/EPA 10:41: mouth [place] (FISH OIL 15 daily. Medical ORAL) Branch BIOTIN ORAL Yes Take by Uni vers - mouth. ity of 10:41: [place] [address] Medical Branch FOLIC ACID Yes Take by Univ ers ORAL - mouth ity of 10:41: daily. [place] [address] Medical Branch MULTIVIT Yes Take by Univer s &MINERALS/F 06-17 mouth. ity of ERROUS FUM 10:41: [place] (MULTI 15 Medical VITAMIN Branch ORAL) METHYLCELLU [...] - mouth ity of EXTRACT 10:41: daily. [place] (CRANBERRY 15 Medical ORAL) Branch CALCIUM 0 Yes Take by [facility] ORAL - mouth ity of 10:41: daily. [place] 15 Medical Branch DOCOSAHEXAN Yes 1000mg Take 1,000 [facility] OIC 9-22 mg by ity of ACID/EPA 10:41: mouth [place] (FISH OIL 15 daily. Medical ORAL) Branch BIOTIN ORAL Yes Take by Uni vers - mouth. ity of 10:41: [place] [address] Medical Branch FOLIC ACID 0 Yes Take by Univ ers ORAL - mouth ity of 10:41: daily. [place] [address] Medical Branch MULTIVIT Yes Take by Univer s &MINERALS/F - mouth. ity of ERROUS FUM 10:41: [place] (MULTI 15 Medical VITAMIN Branch ORAL) METHYLCELLU 2021-0 Yes Univer s LOSE (FIBER 9-22 ity of THERAPY 10:41: [facility]) Medical Branch vitamin C 0 [...] -22 mouth ity of EXTRACT 10:41: daily. [place] (CRANBERRY 15 Medical ORAL) Branch CALCIUM Yes Take by [facility] ORAL 9-22 mouth ity of 10:41: daily. [place] 15 Medical Branch DOCOSAHEXAN Yes 1000mg Take 1,000 [facility] OIC 9-22 mg by ity of ACID/EPA 10:41: mouth [place] (FISH OIL 15 daily. Medical ORAL) Branch BIOTIN ORAL Yes Take by Uni vers - mouth. ity of 10:41: [place] [address] Medical Branch FOLIC ACID 0 Yes Take by Univ ers ORAL - mouth ity of 10:41: daily. [place] [address] Medical Branch MULTIVIT Yes Take by Univer s &MINERALS/F 06-17 mouth. ity of ERROUS FUM 10:41: [place] (MULTI 15 Medical VITAMIN Branch ORAL) [facility] - ity of THERAPY 10:41: [facility]) Medical Branch vitamin C Yes [...] - mouth ity of EXTRACT 10:41: daily. [place] (CRANBERRY 15 Medical ORAL) Branch CALCIUM Yes Take by Univers ORAL - mouth ity of 10:41: daily. [place] [address] Medical Branch DOCOSAHEXAN Yes 1000mg Take 1,000 [facility] OIC 9-22 mg by ity of ACID/EPA 10:41: mouth [place] (FISH OIL 15 daily. Medical ORAL) Branch BIOTIN ORAL Yes Take by Uni vers - mouth. ity of 10:41: [place] [address] Medical Branch FOLIC ACID 0 Yes Take by Univ ers ORAL - mouth ity of 10:41: daily. [place] [address] Medical Branch MULTIVIT Yes Take by Univer s &MINERALS/F - mouth. ity of ERROUS FUM 10:41: [place] (MULTI 15 Medical VITAMIN Branch ORAL) METHYLCELLU 2022-0 Yes Univer s LOSE (FIBER 9-22 ity of THERAPY 10:41: [facility]) 15 Medical Branch vitamin C 2021-0 Yes [...] - mouth ity of EXTRACT 10:41: daily. [place] (CRANBERRY 15 Medical ORAL) Branch CALCIUM 0 Yes Take by [facility] ORAL - mouth ity of 10:41: daily. [place] 15 Medical Branch DOCOSAHEXAN Yes 1000mg Take 1,000 [facility] OIC 9-22 mg by ity of ACID/EPA 10:41: mouth [place] (FISH OIL 15 daily. Medical ORAL) Branch BIOTIN ORAL Yes Take by Uni vers 06-17 mouth. ity of 10:41: [place] [address] Medical Branch FOLIC ACID 0 Yes Take by Univ ers ORAL - mouth ity of 10:41: daily. [place] [address] Medical Branch MULTIVIT Yes Take by Univer s &MINERALS/F - mouth. ity of ERROUS FUM 10:41: [place] (MULTI 15 Medical VITAMIN Branch ORAL) METHYLCELLU [...] - mouth ity of EXTRACT 10:41: daily. [place] (CRANBERRY 15 Medical ORAL) Branch CALCIUM 0 Yes Take by [facility] ORAL - mouth ity of 10:41: daily. [place] 15 Medical Branch DOCOSAHEXAN Yes 1000mg Take 1,000 [facility] OIC 9-22 mg by ity of ACID/EPA 10:41: mouth [place] (FISH OIL 15 daily. Medical ORAL) Branch BIOTIN ORAL 0 Yes Take by Uni vers 9-22 mouth. ity of 10:41: [place] 15 Medical Branch FOLIC ACID 0 Yes Take by Univ ers ORAL 9- mouth ity of 10:41: daily. [place] 15 Medical Branch MULTIVIT 0 Yes Take by Univer s &MINERALS/F - mouth. ity of ERROUS FUM 10:41: [place] (MULTI 15 Medical VITAMIN Branch ORAL) METHYLCELLU [...] - mouth ity of EXTRACT 10:41: daily. [place] (CRANBERRY 15 Medical ORAL) Branch CALCIUM Yes Take by [facility] ORAL 9- mouth ity of 10:41: daily. [place] Medical Branch DOCOSAHEXAN Yes 1000mg Take 1,000 [facility] OIC 9-22 mg by ity of ACID/EPA 10:41: mouth [place] (FISH OIL 15 daily. Medical ORAL) Branch BIOTIN ORAL Yes Take by Uni vers 9-22 mouth. ity of 10:41: [place] [address] Medical Branch FOLIC ACID 0 Yes Take by Univ ers ORAL 9-22 mouth ity of 10:41: daily. [place] [address] Medical Branch MULTIVIT 0 Yes Take by Univer s &MINERALS/F - mouth. ity of ERROUS FUM 10:41: [place] (MULTI 15 Medical VITAMIN Branch ORAL) METHYLCELLU 2021-0 Yes Univer s LOSE (FIBER 9- ity of THERAPY 10:41: [facility]) [...] 06-17 mouth ity of EXTRACT 10:41: daily. [place] (CRANBERRY 15 Medical ORAL) Branch CALCIUM Yes Take by Univers ORAL 06-17 mouth ity of 10:41: daily. [place] [address] Medical Branch DOCOSAHEXAN Yes 1000mg Take 1,000 [facility] OIC 9-22 mg by ity of ACID/EPA 10:41: mouth [place] (FISH OIL 15 daily. Medical ORAL) Branch BIOTIN ORAL Yes Take by Uni vers 06-17 mouth. ity of 10:41: [place] [address] Medical Branch FOLIC ACID Yes Take by Univ ers ORAL 06-17 mouth ity of 10:41: daily. [place] [address] Medical Branch MULTIVIT Yes Take by Unive rs &MINERALS/F 06-17 mouth. ity of ERROUS FUM 10:41: [place] (MULTI 15 Medical VITAMIN Branch ORAL) METHYLCELLU [...] - mouth ity of EXTRACT 10:41: daily. [place] (CRANBERRY 15 Medical ORAL) Branch CALCIUM Yes Take by [facility] ORAL - mouth ity of 10:41: daily. [place] [address] Medical Branch DOCOSAHEXAN Yes 1000mg Take 1,000 [facility] OIC 9-22 mg by ity of ACID/EPA 10:41: mouth [place] (FISH OIL 15 daily. Medical ORAL) Branch BIOTIN ORAL 0 Yes Take by Uni vers - mouth. ity of 10:41: [place] 15 Medical Branch FOLIC ACID 0 Yes Take by Univ ers ORAL - mouth ity of 10:41: daily. [place] 15 Medical Branch MULTIVIT 0 Yes Take by Univer s &MINERALS/F - mouth. ity of ERROUS FUM 10:41: [place] (MULTI 15 Medical VITAMIN Branch ORAL) METHYLCELLU [...] - mouth ity of EXTRACT 10:41: daily. [place] (CRANBERRY 15 Medical ORAL) Branch CALCIUM Yes Take by [facility] ORAL - mouth ity of 10:41: daily. [place] 15 Medical Branch DOCOSAHEXAN Yes 1000mg Take 1,000 [facility] OIC 9-22 mg by ity of ACID/EPA 10:41: mouth [place] (FISH OIL 15 daily. Medical ORAL) Branch BIOTIN ORAL Yes Take by Uni vers -22 mouth. ity of 10:41: [place] 15 Medical Branch FOLIC ACID 0 Yes Take by Univ ers ORAL - mouth ity of 10:41: daily. [place] 15 Medical Branch MULTIVIT 0 Yes Take by Univer s &MINERALS/F - mouth. ity of ERROUS FUM 10:41: [place] (MULTI 15 Medical VITAMIN Branch ORAL) METHYLCELLU [...] 06-17 mouth ity of EXTRACT 10:41: daily. [place] (CRANBERRY 15 Medical ORAL) Branch CALCIUM Yes Take by [facility] ORAL 06-17 mouth ity of 10:41: daily. [place] [address] Medical Branch DOCOSAHEXAN Yes 1000mg Take 1,000 [facility] OIC 9-22 mg by ity of ACID/EPA 10:41: mouth [place] (FISH OIL 15 daily. Medical ORAL) Branch BIOTIN ORAL Yes Take by Uni vers 06-17 mouth. ity of 10:41: [place] [address] Medical Branch FOLIC ACID Yes Take by Univ ers ORAL 06-17 mouth ity of 10:41: daily. [place] [address] Medical Branch [facility]IVIT [facility] 06-17 mouth. ity of ERROUS FUM 10:41: [place] (MULTI 15 Medical VITAMIN Branch ORAL) [facility]LLU [facility] 06-17 ity of THERAPY 10:41: [place] [facility]) Medical Branch vitamin C Yes 1000mg Take [...] - mouth ity of EXTRACT 10:41: daily. [place] (CRANBERRY 15 Medical ORAL) Branch CALCIUM Yes Take by Univers ORAL - mouth ity of 10:41: daily. [place] [address] Medical Branch DOCOSAHEXAN Yes 1000mg Take 1,000 [facility] OIC 9-22 mg by ity of ACID/EPA 10:41: mouth [place] (FISH OIL 15 daily. Medical ORAL) Branch BIOTIN ORAL 0 Yes Take by Uni vers - mouth. ity of 10:41: [place] 15 Medical Branch FOLIC ACID 0 Yes Take by Univ ers ORAL - mouth ity of 10:41: daily. [place] 15 Medical Branch MULTIVIT 0 Yes Take by Univer s &MINERALS/F - mouth. ity of ERROUS FUM 10:41: [place] (MULTI 15 Medical VITAMIN Branch ORAL) METHYLCELLU [...] - mouth ity of EXTRACT 10:41: daily. [place] (CRANBERRY 15 Medical ORAL) Branch CALCIUM Yes Take by [facility] ORAL - mouth ity of 10:41: daily. [place] 15 Medical Branch DOCOSAHEXAN 0 Yes 1000mg Take 1,000 [facility] OIC 9-22 mg by ity of ACID/EPA 10:41: mouth [place] (FISH OIL 15 daily. Medical ORAL) Branch BIOTIN ORAL Yes Take by Uni vers -22 mouth. ity of 10:41: [place] 15 Medical Branch FOLIC ACID 0 Yes Take by Univ ers ORAL 9- mouth ity of 10:41: daily. [place] 15 Medical Branch MULTIVIT 0 Yes Take by Univer s &MINERALS/F - mouth. ity of ERROUS FUM 10:41: [place] (MULTI 15 Medical VITAMIN Branch ORAL) METHYLCELLU [...] 06-17 mouth ity of EXTRACT 10:41: daily. [place] (CRANBERRY 15 Medical ORAL) Branch CALCIUM Yes Take by Univer s ORAL 06-17 mouth ity of 10:41: daily. [place] Medical Branch DOCOSAHEXAN Yes 1000mg Take 1,000 [facility] OIC 9-22 mg by ity of ACID/EPA 10:41: mouth [place] (FISH OIL 15 daily. Medical ORAL) Branch BIOTIN ORAL Yes Take by Uni vers 06-17 mouth. ity of 10:41: [place] [address] Medical Branch FOLIC ACID Yes Take by Univ ers ORAL 06-17 mouth ity of 10:41: daily. [place] [address] Medical Branch MULTIVIT Yes Take by Univer s &MINERALS/F 06-17 mouth. ity of ERROUS FUM 10:41: [place] (MULTI 15 Medical VITAMIN Branch ORAL) [facility]U [facility]17 ity of THERAPY 10:41: [facility]) Medical Branch vitamin C Yes [...] 06-17 mouth ity of EXTRACT 10:41: daily. [place] (CRANBERRY 15 Medical ORAL) Branch CALCIUM Yes Take by [facility] ORAL 06-17 mouth ity of 10:41: daily. [place] 15 Medical Branch DOCOSAHEXAN Yes 1000mg Take 1,000 [facility] OIC 9-22 mg by ity of ACID/EPA 10:41: mouth [place] (FISH OIL 15 daily. Medical ORAL) Branch BIOTIN ORAL Yes Take by Uni vers -22 mouth. ity of 10:41: [place] 15 Medical Branch FOLIC ACID 0 Yes Take by Univ ers ORAL - mouth ity of 10:41: daily. [place] 15 Medical Branch MULTIVIT 0 Yes Take by Univer s &MINERALS/F - mouth. ity of ERROUS FUM 10:41: [place] (MULTI 15 Medical VITAMIN Branch ORAL) METHYLCELLU [...] Branch unit) tablet CRANBERRY Yes Take by [facility] rs FRUIT 06-17 mouth ity of EXTRACT 10:41: daily. [place] (CRANBERRY 15 Medical ORAL) Branch CALCIUM Yes Take by Univers ORAL 06-17 mouth ity of 10:41: daily. [place] 15 Medical Branch DOCOSAHEXAN Yes 1000mg Take 1,000 [facility] OIC 9-22 mg by ity of ACID/EPA 10:41: mouth [place] (FISH OIL 15 daily. Medical ORAL) Branch BIOTIN ORAL Yes Take by Uni vers -22 mouth. ity of 10:41: [place] 15 Medical Branch FOLIC ACID 0 Yes Take by Univ ers ORAL - mouth ity of 10:41: daily. [place] 15 Medical Branch MULTIVIT 0 Yes Take by Univer s &MINERALS/F - mouth. ity of ERROUS FUM 10:41: [place] (MULTI 15 Medical VITAMIN Branch ORAL) METHYLCELLU 2021-0 Yes Univer s LOSE (FIBER 9- ity of THERAPY 10:41: [facility]) [...] - mouth ity of EXTRACT 10:41: daily. [place] (CRANBERRY 15 Medical ORAL) Branch CALCIUM Yes Take by Univers ORAL - mouth ity of 10:41: daily. [place] [address] Medical Branch DOCOSAHEXAN Yes 1000mg Take 1,000 [facility] OIC 9-22 mg by ity of ACID/EPA 10:41: mouth [place] (FISH OIL 15 daily. Medical ORAL) Branch BIOTIN ORAL Yes Take by Uni vers 06-17 mouth. ity of 10:41: [place] [address] Medical Branch FOLIC ACID Yes Take by Univ ers ORAL 06-17 mouth ity of 10:41: daily. [place] [address] Medical Branch MULTIVIT Yes [facility] &[facility]/F 06-17 mouth. ity of ERROUS FUM 10:41: [place] (MULTI 15 Medical VITAMIN Branch ORAL) [facility]LLU [facility]-17 ity of THERAPY 10:41: [place] MIS) Medical Branch vitamin C Yes 1000mg [...] - mouth ity of EXTRACT 10:41: daily. [place] (CRANBERRY 15 Medical ORAL) Branch CALCIUM Yes Take by Univers ORAL - mouth ity of 10:41: daily. [place] [address] Medical Branch DOCOSAHEXAN Yes 1000mg Take 1,000 [facility] OIC 9-22 mg by ity of ACID/EPA 10:41: mouth [place] (FISH OIL 15 daily. Medical ORAL) Branch BIOTIN ORAL Yes Take by Uni vers 06-17 mouth. ity of 10:41: [place] [address] Medical Branch SUMAtriptan 2022-0 Yes [id number] 50mg Take 1 Univers 50 mg 9-22 tablet by ity of tablet 00:00: mouth as [place] 00 needed for Medical Migraine. Branch topiramate 2-0 Yes [id number] 75mg Take 3 Univers 25 mg 9-22 tablets by ity of tablet 00:00: mouth in [place] 00 the Medical morning Branch and 3 tablets in the evening. SUMAtriptan 2022-0 Yes [id number] 50mg Take 1 [facility] 50 mg 9-22 tablet by ity of tablet 00:00: mouth as [place] 00 needed for Medical Migraine. Branch topiramate 2-0 Yes [id number] 75mg Take 3 [facility] 25 mg 9-22 tablets by ity of tablet 00:00: mouth in [place] 00 the Medical morning Branch and 3 tablets in the evening. SUMAtriptan 2-0 Yes [id number] 50mg Take 1 [facility] 50 mg 9-22 tablet by ity of tablet 00:00: mouth as [place] 00 needed for Medical Migraine. Branch topiramate 2-0 Yes [id number] 75mg Take 3 [facility] 25 mg 9-22 tablets by ity of tablet 00:00: mouth in [place] 00 the Medical morning Branch and 3 tablets in the evening. SUMAtriptan 2-0 Yes [id number] 50mg Take 1 [facility] 50 mg 9-22 tablet by ity of tablet 00:00: mouth as [place] 00 needed for Medical Migraine. Branch topiramate 2-0 Yes [id number] 75mg Take 3 [facility] 25 mg 9-22 tablets by ity of tablet 00:00: mouth in [place] 00 the Medical morning Branch and 3 tablets in the evening. topiramate 2022-0 Yes [id number] 75mg Take 3 [facility] 25 mg 9-22 tablets by ity of tablet 00:00: mouth in [place] 00 the Medical morning Branch and 3 tablets in the evening. topiramate 2022-0 Yes [id number] 75mg Take 3 [facility] 25 mg 9-22 tablets by ity of tablet 00:00: mouth in [place] 00 the Medical morning Branch and 3 tablets in the evening. topiramate 2022-0 Yes [id number] 75mg Take 3 [facility] 25 mg 9-22 tablets by ity of tablet 00:00: mouth in [place] 00 the Medical morning Branch and 3 tablets in the evening. topiramate 2022-0 Yes [id number] 75mg Take 3 [facility] 25 mg 9-22 tablets by ity of tablet 00:00: mouth in [place] 00 the Medical morning Branch and 3 tablets in the evening. topiramate 2021-0 Yes [id number] 75mg Take 3 [facility] 25 mg 9-22 tablets by ity of tablet 00:00: mouth in [place] 00 the Medical morning Branch and 3 tablets in the evening. topiramate 2021-0 Yes [id number] 75mg Take 3 [facility] 25 mg 9-22 tablets by ity of tablet 00:00: mouth in [place] 00 the Medical morning Branch and 3 tablets in the evening. topiramate 2021-0 2021- No [id number] 75mg Take 3 [facility] 25 mg 9-22 10-13 tablets by ity of tablet 00:00: 00:00 mouth in [place] 00 :00 the Medical morning Branch and 3 tablets in the evening. SUMAtriptan 2021-0 2021- No [id number] 50mg Take 1 [facility] 50 mg 9-22 09-30 tablet by ity of tablet 00:00: 00:00 mouth as [place] 00 :00 needed for Medical Migraine. Branch pantoprazol 0 Yes [id number] 40mg Take 1 Univers e 40 mg EC 9-16 tablet by ity of tablet 00:00: mouth in [place] 00 the Medical morning. Branch Simethicone 2021-0 Yes [id number] 125mg Take 1 [facility] 125 mg 9-16 capsule by ity of 00:00: mouth [place] 00 after Medical meals and Branch at bedtime as needed for Gas (Per bowel prep). pantoprazol 2021-0 Yes [id number] 40mg Take 1 Univers e 40 mg EC 9-16 tablet by ity of tablet 00:00: mouth in [place] 00 the Medical morning. Branch Simethicone 2021-0 Yes [id number] 125mg Take 1 [facility] 125 mg 9-16 capsule by ity of 00:00: mouth [place] 00 after Medical meals and Branch at bedtime as needed for Gas (Per bowel prep). pantoprazol 2021-0 Yes [id number] 40mg Take 1 Univers e 40 mg EC 9-16 tablet by ity of tablet 00:00: mouth in [place] 00 the Medical morning. Branch Simethicone 2021-0 Yes [id number] 125mg Take 1 [facility] 125 mg 9-16 capsule by ity of 00:00: mouth [place] 00 after Medical meals and Branch at bedtime as needed for Gas (Per bowel prep). pantoprazol 2021-0 Yes [id number] 40mg Take 1 Univers e 40 mg EC 9-16 tablet by ity of tablet 00:00: mouth in [place] 00 the Medical morning. Branch Simethicone 2021-0 Yes [id number] 125mg Take 1 [facility] 125 mg 9-16 capsule by ity of 00:00: mouth [place] 00 after Medical meals and Branch at bedtime as needed for Gas (Per bowel prep). pantoprazol 2021-0 Yes [id number] 40mg Take 1 Univers e 40 mg EC 9-16 tablet by ity of tablet 00:00: mouth in [place] 00 the Medical morning. Branch Simethicone 2021-0 Yes [id number] 125mg Take 1 [facility] 125 mg 9-16 capsule by ity of 00:00: mouth [place] 00 after Medical meals and Branch at bedtime as needed for Gas (Per bowel prep). pantoprazol 2021-0 Yes [id number] 40mg Take 1 Univers e 40 mg EC 9-16 tablet by ity of tablet 00:00: mouth in [place] 00 the Medical morning. Branch Simethicone 2021-0 Yes [id number] 125mg Take 1 [facility] 125 mg 9-16 capsule by ity of 00:00: mouth [place] 00 after Medical meals and Branch at bedtime as needed for Gas (Per bowel prep). pantoprazol 2021-0 Yes [id number] 40mg Take 1 [facility] e 40 mg EC 9-16 tablet by ity of tablet 00:00: mouth in [place] 00 the Medical morning. Branch Simethicone 2021-0 Yes [id number] 125mg Take 1 [facility] 125 mg 9-16 capsule by ity of 00:00: mouth [place] 00 after Medical meals and Branch at bedtime as needed for Gas (Per bowel prep). pantoprazol 2021-0 Yes [id number] 40mg Take 1 [facility] e 40 mg EC 9-16 tablet by ity of tablet 00:00: mouth in [place] 00 the Medical morning. Branch Simethicone 2021-0 Yes [id number] 125mg Take 1 [facility] 125 mg 9-16 capsule by ity of 00:00: mouth [place] 00 after Medical meals and Branch at bedtime as needed for Gas (Per bowel prep). pantoprazol 2021-0 Yes [id number] 40mg Take 1 [facility] e 40 mg EC 9-16 tablet by ity of tablet 00:00: mouth in [place] 00 the Medical morning. Branch Simethicone 2021-0 Yes [id number] 125mg Take 1 [facility] 125 mg 9-16 capsule by ity of 00:00: mouth [place] 00 after Medical meals and Branch at bedtime as needed for Gas (Per bowel prep). pantoprazol 2021-0 Yes [id number] 40mg Take 1 [facility] e 40 mg EC 9-16 tablet by ity of tablet 00:00: mouth in [place] 00 the Medical morning. Branch Simethicone 2021-0 Yes [id number] 125mg Take 1 [facility] 125 mg 9-16 capsule by ity of 00:00: mouth [place] 00 after Medical meals and Branch at bedtime as needed for Gas (Per bowel prep). pantoprazol 2021-0 Yes [id number] 40mg Take 1 [facility] e 40 mg EC 9-16 tablet by ity of tablet 00:00: mouth in [place] 00 the Medical morning. Branch Simethicone 2021-0 Yes [id number] 125mg Take 1 [facility] 125 mg 9-16 capsule by ity of 00:00: mouth [place] 00 after Medical meals and Branch at bedtime as needed for Gas (Per bowel prep). pantoprazol 2021-0 Yes [id number] 40mg Take 1 [facility] e 40 mg EC 9-16 tablet by ity of tablet 00:00: mouth in [place] 00 the Medical morning. Branch Simethicone 2021-0 Yes [id number] 125mg Take 1 [facility] 125 mg 9-16 capsule by ity of 00:00: mouth [place] 00 after Medical meals and Branch at bedtime as needed for Gas (Per bowel prep). pantoprazol 2021-0 Yes [id number] 40mg Take 1 [facility] e 40 mg EC 9-16 tablet by ity of tablet 00:00: mouth in [place] 00 the Medical morning. Branch Simethicone 2021-0 Yes [id number] 125mg Take 1 [facility] 125 mg 9-16 capsule by ity of 00:00: mouth [place] 00 after Medical meals and Branch at bedtime as needed for Gas (Per bowel prep). pantoprazol 2021-0 Yes [id number] 40mg Take 1 [facility] e 40 mg EC 9-16 tablet by ity of tablet 00:00: mouth in [place] 00 the Medical morning. Branch Simethicone Yes [id number] 125mg Take 1 [facility] 125 mg 9-16 capsule by ity of 00:00: mouth [place] 00 after Medical meals and Branch at bedtime as needed for Gas (Per bowel prep). pantoprazol Yes [id number] 40mg Take 1 [facility] e 40 mg EC 9-16 tablet by ity of tablet 00:00: mouth in [place] 00 the Medical morning. Branch Simethicone Yes [id number] 125mg Take 1 [facility] 125 mg 9-16 capsule by ity of 00:00: mouth [place] 00 after Medical meals and Branch at bedtime as needed for Gas (Per bowel prep). Simethicone Yes [id number] 125mg Take 1 [facility] 125 mg 9-16 capsule by ity of 00:00: mouth [place] 00 after Medical meals and Branch at bedtime as needed for Gas (Per bowel prep). Simethicone Yes [id number] 125mg Take 1 [facility] 125 mg 9-16 capsule by ity of 00:00: mouth [place] 00 after Medical meals and Branch at bedtime as needed for Gas (Per bowel prep). Simethicone 2021- No [id number] 125mg Take 1 [facility] 125 mg 9-16 11-01 capsule by ity of 00:00: 00:00 mouth [place] 00 :00 after Medical meals and Branch at bedtime as needed for Gas (Per bowel prep). Simethicone 2021- No [id number] 125mg Take 1 [facility] 125 mg 9-16 11-01 capsule by ity of 00:00: 00:00 mouth [place] 00 :00 after Medical meals and Branch at bedtime as needed for Gas (Per bowel prep). pantoprazol 2021- No [id number] 40mg Take 1 [facility] e 40 mg EC 9-16 10-13 tablet by ity of tablet 00:00: 00:00 mouth in [place] 00 :00 the Medical morning. Branch SUMAtriptan Yes [id number] TAKE 1 [facility] 50 mg 9-06 TABLET BY ity of tablet 00:00: MOUTH [place] 00 NEEDED FOR Medical MIGRAINE Branch HEADACHE ( MAY REPEAT IN 2 HOURS ) SUMAtriptan 2022-0 Yes [id number] TAKE 1 [facility] 50 mg 9-06 TABLET BY ity of tablet 00:00: MOUTH [place] 00 NEEDED FOR Medical MIGRAINE Branch HEADACHE ( MAY REPEAT IN 2 HOURS ) SUMAtriptan 2-0 Yes [id number] TAKE 1 [facility] 50 mg 9-06 TABLET BY ity of tablet 00:00: MOUTH [place] 00 NEEDED FOR Medical MIGRAINE Branch HEADACHE ( MAY REPEAT IN 2 HOURS ) SUMAtriptan 2022-0 Yes [id number] TAKE 1 [facility] 50 mg 9-06 TABLET BY ity of tablet 00:00: MOUTH [place] 00 NEEDED FOR Medical MIGRAINE Branch HEADACHE ( MAY REPEAT IN 2 HOURS ) SUMAtriptan 2022-0 Yes [id number] TAKE 1 [facility] 50 mg 9-06 TABLET BY ity of tablet 00:00: MOUTH [place] 00 NEEDED FOR Medical MIGRAINE Branch HEADACHE ( MAY REPEAT IN 2 HOURS ) SUMAtriptan 2-0 Yes [id number] TAKE 1 [facility] 50 mg 9-06 TABLET BY ity of tablet 00:00: MOUTH [place] 00 NEEDED FOR Medical MIGRAINE Branch HEADACHE ( MAY REPEAT IN 2 HOURS ) SUMAtriptan 2-0 Yes [id number] TAKE 1 [facility] 50 mg 9-06 TABLET BY ity of tablet 00:00: MOUTH [place] 00 NEEDED FOR Medical MIGRAINE Branch HEADACHE ( MAY REPEAT IN 2 HOURS ) SUMAtriptan 2-0 Yes [id number] TAKE 1 [facility] 50 mg 9-06 TABLET BY ity of tablet 00:00: MOUTH [place] 00 NEEDED FOR Medical MIGRAINE Branch HEADACHE ( MAY REPEAT IN 2 HOURS ) SUMAtriptan 2022-0 Yes [id number] TAKE 1 [facility] 50 mg 9-06 TABLET BY ity of tablet 00:00: MOUTH [place] 00 NEEDED FOR Medical MIGRAINE Branch HEADACHE ( MAY REPEAT IN 2 HOURS ) SUMAtriptan 2022-0 Yes [id number] TAKE 1 [facility] 50 mg 9-06 TABLET BY ity of tablet 00:00: MOUTH [place] 00 NEEDED FOR Medical MIGRAINE Branch HEADACHE ( MAY REPEAT IN 2 HOURS ) SUMAtriptan 2022-0 Yes [id number] TAKE 1 [facility] 50 mg 9-06 TABLET BY ity of tablet 00:00: MOUTH [place] 00 NEEDED FOR Medical MIGRAINE Branch HEADACHE ( MAY REPEAT IN 2 HOURS ) SUMAtriptan 2022-0 Yes [id number] TAKE 1 [facility] 50 mg 9-06 TABLET BY ity of tablet 00:00: MOUTH [place] 00 NEEDED FOR Medical MIGRAINE Branch HEADACHE ( MAY REPEAT IN 2 HOURS ) SUMAtriptan 2021-0 2021- No [id number] TAKE 1 [facility] 50 mg 9-06 - TABLET BY ity of tablet 00:00: 00:00 MOUTH [place] 00 :00 NEEDED FOR Medical MIGRAINE Branch HEADACHE ( MAY REPEAT IN 2 HOURS ) SUMAtriptan 2021-0 2021- No [id number] TAKE 1 [facility] 50 mg 9-06 - TABLET BY ity of tablet 00:00: 00:00 MOUTH [place] 00 :00 NEEDED FOR Medical MIGRAINE Branch HEADACHE ( MAY REPEAT IN 2 HOURS ) SUMAtriptan 2021-0 2021- No [id number] TAKE 1 [facility] 50 mg 9-06 - TABLET BY ity of tablet 00:00: 00:00 MOUTH [place] 00 :00 NEEDED FOR Medical MIGRAINE Branch HEADACHE ( MAY REPEAT IN 2 HOURS ) topiramate 2-0 Yes [id number] Take 2 [facility] 25 mg 9-01 tablets by ity of tablet 00:00: mouth [place] 00 twice Medical daily Branch topiramate 2022-0 Yes [id number] Take 2 [facility] 25 mg 9-01 tablets by ity of tablet 00:00: mouth [place] 00 twice Medical daily Branch topiramate 2022-0 Yes [id number] Take 2 [facility] 25 mg 9-01 tablets by ity of tablet 00:00: mouth [place] 00 twice Medical daily Branch topiramate 2022-0 Yes [id number] Take 2 [facility] 25 mg 9-01 tablets by ity of tablet 00:00: mouth [place] 00 twice Medical daily Branch topiramate 2022-0 Yes [id number] Take 2 [facility] 25 mg 9-01 tablets by ity of tablet 00:00: mouth [place] 00 twice Medical daily Branch topiramate 2022-0 Yes [id number] Take 2 [facility] 25 mg 9-01 tablets by ity of tablet 00:00: mouth [place] 00 twice Medical daily Branch topiramate 2022-0 Yes [id number] Take 2 [facility] 25 mg 9-01 tablets by ity of tablet 00:00: mouth [place] 00 twice Medical daily Branch topiramate 2022-0 Yes [id number] Take 2 [facility] 25 mg 9-01 tablets by [facility] tablet 00:00: mouth [place] 00 twice Medical daily Branch topiramate 2022-0 Yes [id number] Take 2 [facility] 25 mg 9-01 tablets by [facility] tablet 00:00: mouth 00 twice Medical daily Branch topiramate 2-0 Yes [id number] Take 2 [facility] 25 mg 9-01 tablets by [facility] tablet 00:00: mouth 00 twice Medical daily Branch topiramate 2-0 Yes [id number] Take 2 [facility] 25 mg 9-01 tablets by [facility] tablet 00:00: mouth 00 twice Medical daily Branch topiramate 2-0 Yes [id number] Take 2 [facility] 25 mg 9-01 tablets by [facility] tablet 00:00: mouth 00 twice Medical daily Branch topiramate 2021-0 Yes [id number] Take 2 [facility] 25 mg 9-01 tablets by [facility] tablet 00:00: mouth 00 twice Medical daily Branch topiramate 2021-0 Yes [id number] Take 2 [facility] 25 mg 9-01 tablets by [facility] tablet 00:00: mouth 00 twice Medical daily Branch topiramate 2021-0 Yes [id number] Take 2 [facility] 25 mg 9-01 tablets by [facility] tablet 00:00: mouth 00 twice Medical daily Branch topiramate 2022-0 2- No [id number] Take 2 [facility] 25 mg 9-01 09-22 tablets by [facility] tablet 00:00: 00:00 mouth [place] 00 :00 twice Medical daily Branch topiramate 2022-0 2022- No [id number] Take 2 [facility] 25 mg 9-01 09-22 tablets by [facility] tablet 00:00: 00:00 mouth [place] 00 :00 twice Medical daily Branch topiramate 2022-0 2- No [id number] Take 2 [facility] 25 mg 9-01 09-22 tablets by [facility] tablet 00:00: 00:00 mouth [place] 00 :00 twice Medical daily Branch methocarbam 2021-0 Yes [id number] 500mg Take 1 [facility] oL 500 mg 8-11 tablet by [facility] o f tablet 00:00: mouth (four) Medical times Branch daily as needed for Pain (scale 7-10). methocarbam 2021-0 Yes [id number] 500mg Take 1 [facility] oL 500 mg 8-11 tablet by [facility] f tablet 00:00: mouth 4 (four) Medical times Branch daily as needed for Pain (scale 7-10). methocarbam 2022-0 Yes [id number] 500mg Take 1 [facility] oL 500 mg 8-11 tablet by [facility] o f tablet 00:00: mouth (four) Medical times Branch daily as needed for Pain (scale 7-10). methocarbam 2022-0 Yes [id number] 500mg Take 1 [facility] oL 500 mg 8-11 tablet by [facility] f tablet 00:00: mouth (four) Medical times Branch daily as needed for Pain (scale 7-10). methocarbam 2022-0 Yes [id number] 500mg Take 1 [facility] oL 500 mg 8-11 tablet by [facility] f tablet 00:00: mouth (four) Medical times Branch daily as needed for Pain (scale 7-10). methocarbam 2022-0 Yes [id number] 500mg Take 1 [facility] oL 500 mg 8-11 tablet by [facility] f tablet 00:00: mouth (four) Medical times Branch daily as needed for Pain (scale 7-10). methocarbam 2022-0 Yes [id number] 500mg Take 1 [facility] oL 500 mg 8-11 tablet by [facility] f tablet 00:00: mouth (four) Medical times Branch daily as needed for Pain (scale 7-10). methocarbam 2022-0 Yes [id number] 500mg Take 1 [facility] oL 500 mg 8-11 tablet by [facility] f tablet 00:00: mouth (four) Medical times Branch daily as needed for Pain (scale 7-10). methocarbam 2022-0 Yes [id number] 500mg Take 1 [facility] oL 500 mg 8-11 tablet by [facility] f tablet 00:00: mouth (four) Medical times Branch daily as needed for Pain (scale 7-10). methocarbam 2022-0 Yes [id number] 500mg Take 1 [facility] oL 500 mg 8-11 tablet by [facility] o f tablet 00:00: mouth (four) Medical times Branch daily as needed for Pain (scale 7-10). methocarbam 2022-0 Yes [id number] 500mg Take 1 [facility] oL 500 mg 8-11 tablet by [facility] f tablet 00:00: mouth 4 [place] 00 (four) Medical times Branch daily as needed for Pain (scale 7-10). methocarbam 2022-0 Yes [id number] 500mg Take 1 [facility] oL 500 mg 8-11 tablet by [facility] o f tablet 00:00: mouth (four) Medical times Branch daily as needed for Pain (scale 7-10). methocarbam 2022-0 Yes [id number] 500mg Take 1 [facility] oL 500 mg 8-11 tablet by [facility] o f tablet 00:00: mouth (four) Medical times Branch daily as needed for Pain (scale 7-10). methocarbam 2022-0 Yes [id number] 500mg Take 1 [facility] oL 500 mg 8-11 tablet by [facility] f tablet 00:00: mouth (four) Medical times Branch daily as needed for Pain (scale 7-10). methocarbam 2022-0 Yes [id number] 500mg Take 1 [facility] oL 500 mg 8-11 tablet by [facility] f tablet 00:00: mouth (four) Medical times Branch daily as needed for Pain (scale 7-10). methocarbam 2-0 Yes [id number] 500mg Take 1 [facility] oL 500 mg 8-11 tablet by [facility] f tablet 00:00: mouth (four) Medical times Branch daily as needed for Pain (scale 7-10). methocarbam 2022-0 Yes [id number] 500mg Take 1 [facility] oL 500 mg 8-11 tablet by [facility] o f tablet 00:00: mouth (four) Medical times Branch daily as needed for Pain (scale 7-10). methocarbam 2022-0 Yes [id number] 500mg Take 1 [facility] oL 500 mg 8-11 tablet by [facility] o f tablet 00:00: mouth (four) Medical times Branch daily as needed for Pain (scale 7-10). methocarbam 2022-0 Yes [id number] 500mg Take 1 [facility] oL 500 mg 8-11 tablet by [facility] o f tablet 00:00: mouth (four) Medical times Branch daily as needed for Pain (scale 7-10). methocarbam 2022-0 Yes [id number] 500mg Take 1 [facility] oL 500 mg 8-11 tablet by [facility] f tablet 00:00: mouth (four) Medical times Branch daily as needed for Pain (scale 7-10). methocarbam 2022-0 Yes [id number] 500mg Take 1 [facility] oL 500 mg 8-11 tablet by [facility] o f tablet 00:00: mouth (four) Medical times Branch daily as needed for Pain (scale 7-10). methocarbam 2022-0 Yes [id number] 500mg Take 1 [facility] oL 500 mg 8-11 tablet by [facility] o f tablet 00:00: mouth (four) Medical times Branch daily as needed for Pain (scale 7-10). methocarbam 2022-0 Yes [id number] 500mg Take 1 [facility] oL 500 mg 8-11 tablet by [facility] f tablet 00:00: mouth (four) Medical times Branch daily as needed for Pain (scale 7-10). methocarbam 2022-0 Yes [id number] 500mg Take 1 [facility] oL 500 mg 8-11 tablet by [facility] f tablet 00:00: mouth (four) Medical times Branch daily as needed for Pain (scale 7-10). methocarbam 2022-0 Yes [id number] 500mg Take 1 [facility] oL 500 mg 8-11 tablet by [facility] f tablet 00:00: mouth (four) Medical times Branch daily as needed for Pain (scale 7-10). methocarbam 2022-0 Yes [id number] 500mg Take 1 [facility] oL 500 mg 8-11 tablet by [facility] f tablet 00:00: mouth (four) Medical times Branch daily as needed for Pain (scale 7-10). methocarbam 2022-0 Yes [id number] 500mg Take 1 [facility] oL 500 mg 8-11 tablet by [facility] f tablet 00:00: mouth (four) Medical times Branch daily as needed for Pain (scale 7-10). methocarbam 2022-0 Yes [id number] 500mg Take 1 [facility] oL 500 mg 8-11 tablet by [facility] f tablet 00:00: mouth (four) Medical times Branch daily as needed for Pain (scale 7-10). methocarbam 2022-0 Yes [id number] 500mg Take 1 [facility] oL 500 mg 8-11 tablet by [facility] f tablet 00:00: mouth (four) Medical times Branch daily as needed for Pain (scale 7-10). methocarbam 2-0 Yes [id number] 500mg Take 1 [facility] oL 500 mg 8-11 tablet by [facility] f tablet 00:00: mouth (four) Medical times Branch daily as needed for Pain (scale 7-10). methocarbam 2-0 Yes [id number] 500mg Take 1 [facility] oL 500 mg 8-11 tablet by [facility] f tablet 00:00: mouth (four) Medical times Branch daily as needed for Pain (scale 7-10). methocarbam 2021-0 Yes [id number] 500mg Take 1 [facility] o[facility] 500 mg 8-11 tablet by [facility] f tablet 00:00: mouth (four) Medical times Branch daily as needed for Pain (scale 7-10). methocarbam 2021-0 Yes [id number] 500mg Take 1 [facility] o[facility] 500 mg 8-11 tablet by [facility] f tablet 00:00: mouth (four) Medical times Branch daily as needed for Pain (scale 7-10). methocarbam 2021-0 Yes [id number] 500mg Take 1 [facility] o[facility] 500 mg 8-11 tablet by [facility] f tablet 00:00: mouth (four) Medical times Branch daily as needed for Pain (scale 7-10). methocarbam 2021-0 Yes [id number] 500mg Take 1 [facility] oL 500 mg 8-11 tablet by [facility] f tablet 00:00: mouth (four) Medical times Branch daily as needed for Pain (scale 7-10). methocarbam 2021-0 Yes [id number] 500mg Take 1 [facility] o[facility] 500 mg 8-11 tablet by [facility] tablet 00:00: mouth (four) Medical times Branch daily as needed for Pain (scale 7-10). methocarbam 2-0 Yes [id number] 500mg Take 1 [facility] oL 500 mg 8-11 tablet by [facility] f tablet 00:00: mouth (four) Medical times Branch daily as needed for Pain (scale 7-10). methocarbam 2-0 Yes [id number] 500mg Take 1 [facility] oL 500 mg 8-11 tablet by [facility] f tablet 00:00: mouth (four) Medical times Branch daily as needed for Pain (scale 7-10). methocarbam 2022-0 Yes [id number] 500mg Take 1 [facility] oL 500 mg 8-11 tablet by [facility] f tablet 00:00: mouth (four) Medical times Branch daily as needed for Pain (scale 7-10). methocarbam 2-0 Yes [id number] 500mg Take 1 [facility] oL 500 mg 8-11 tablet by [facility] f tablet 00:00: mouth (four) Medical times Branch daily as needed for Pain (scale 7-10). methocarbam 2-0 Yes [id number] 500mg Take 1 [facility] oL 500 mg 8-11 tablet by [facility] f tablet 00:00: mouth (four) Medical times Branch daily as needed for Pain (scale 7-10). methocarbam 2-0 Yes [id number] 500mg Take 1 [facility] oL 500 mg 8-11 tablet by [facility] o f tablet 00:00: mouth (four) Medical times Branch daily as needed for Pain (scale 7-10). methocarbam 2-0 Yes [id number] 500mg Take 1 [facility] oL 500 mg 8-11 tablet by [facility] f tablet 00:00: mouth (four) Medical times Branch daily as needed for Pain (scale 7-10). methocarbam 2-0 Yes [id number] 500mg Take 1 [facility] oL 500 mg 8-11 tablet by [facility] f tablet 00:00: mouth (four) Medical times Branch daily as needed for Pain (scale 7-10). methocarbam 2-0 Yes [id number] 500mg Take 1 [facility] oL 500 mg 8-11 tablet by [facility] f tablet 00:00: mouth (four) Medical times Branch daily as needed for Pain (scale 7-10). methocarbam 2-0 Yes [id number] 500mg Take 1 [facility] oL 500 mg 8-11 tablet by [facility] f tablet 00:00: mouth (four) Medical times Branch daily as needed for Pain (scale 7-10). methocarbam 2-0 Yes [id number] 500mg Take 1 [facility] oL 500 mg 8-11 tablet by [facility] f tablet 00:00: mouth (four) Medical times Branch daily as needed for Pain (scale 7-10). methocarbam 2022-0 Yes [id number] 500mg Take 1 [facility] oL 500 mg 8-11 tablet by [facility] f tablet 00:00: mouth (four) Medical times Branch daily as needed for Pain (scale 7-10). methocarbam 2-0 Yes [id number] 500mg Take 1 [facility] oL 500 mg 8-11 tablet by [facility] o f tablet 00:00: mouth (four) Medical times Branch daily as needed for Pain (scale 7-10). methocarbam 2022-0 Yes [id number] 500mg Take 1 [facility] oL 500 mg 8-11 tablet by [facility] o f tablet 00:00: mouth (four) Medical times Branch daily as needed for Pain (scale 7-10). methocarbam 2-0 Yes [id number] 500mg Take 1 [facility] oL 500 mg 8-11 tablet by [facility] o f tablet 00:00: mouth (four) Medical times Branch daily as needed for Pain (scale 7-10). methocarbam 2-0 Yes [id number] 500mg Take 1 [facility] oL 500 mg 8-11 tablet by [facility] o f tablet 00:00: mouth (four) Medical times Branch daily as needed for Pain (scale 7-10). methocarbam 2-0 Yes [id number] 500mg Take 1 [facility] oL 500 mg 8-11 tablet by [facility] o f tablet 00:00: mouth (four) Medical times Branch daily as needed for Pain (scale 7-10). methocarbam 2-0 Yes [id number] 500mg Take 1 [facility] oL 500 mg 8-11 tablet by [facility] o f tablet 00:00: mouth (four) Medical times Branch daily as needed for Pain (scale 7-10). methocarbam 2-0 Yes [id number] 500mg Take 1 [facility] oL 500 mg 8-11 tablet by [facility] o f tablet 00:00: mouth (four) Medical times Branch daily as needed for Pain (scale 7-10). methocarbam 2022-0 Yes [id number] 500mg Take 1 [facility] oL 500 mg 8-11 tablet by [facility] o f tablet 00:00: mouth (four) Medical times Branch daily as needed for Pain (scale 7-10). methocarbam 2022-0 Yes [id number] 500mg Take 1 [facility] oL 500 mg 8-11 tablet by [facility] o f tablet 00:00: mouth 4 [place] 00 (four) Medical times Branch daily as needed for Pain (scale 7-10). methocarbam 2021-0 Yes [id number] 500mg Take 1 [facility] oL 500 mg 8-11 tablet by [facility] o f tablet 00:00: mouth 4 [place] 00 (four) Medical times Branch daily as needed for Pain (scale 7-10). methocarbam 0 Yes [id number] 500mg Take 1 [facility] oL 500 mg 8-11 tablet by [facility] o f tablet 00:00: mouth 4 [place] 00 (four) Medical times Branch daily as needed for Pain (scale 7-10). methocarbam 2021-0 Yes [id number] 500mg Take 1 [facility] oL 500 mg 8-11 tablet by [facility] o f tablet 00:00: mouth 4 [place] 00 (four) Medical times Branch daily as needed for Pain (scale 7-10). methocarbam 2022- No [id number] 500mg Take 1 [facility] oL 500 mg 8-11 -24 tablet by [facility] tablet 00:00: 00:00 mouth 4 00 :00 (four) Medical times Branch daily as needed for Pain (scale 7-10). methocarbam 2022- No [id number] 500mg Take 1 [facility] oL 500 mg 8-11 -24 tablet by [facility] tablet 00:00: 00:00 mouth 4 [place] 00 :00 (four) Medical times Branch daily as needed for Pain (scale 7-10). methocarbam 2022- No [id number] 500mg Take 1 [facility] oL 500 mg 8-11 -24 tablet by [facility] tablet 00:00: 00:00 mouth 4 [place] 00 :00 (four) Medical times Branch daily as needed for Pain (scale 7-10). methocarbam 2021-0 3- No [id number] 500mg Take 1 [facility] oL 500 mg 8-11 -24 tablet by [facility] tablet 00:00: 00:00 mouth 4 [place] 00 :00 (four) Medical times Branch daily as needed for Pain (scale 7-10). methocarbam 2021-0 3- No [id number] 500mg Take 1 [facility] oL 500 mg 8-11 -24 tablet by [facility] tablet 00:00: 00:00 mouth 4 [place] 00 :00 (four) Medical times Branch daily as needed for Pain (scale 7-10). LOSARTAN 50 2021-0 Yes [id number] Take 1 [facility] mg tablet 7-20 tablet by [facility] o f 00:00: mouth [place] 00 twice Medical daily Branch DILTIAZEM 2021-0 Yes [id number] Take 1 [facility] [place] 120 mg 24 7-20 capsule by [facility] hr capsule 00:00: mouth twice Medical daily Branch LOSARTAN 50 2021-0 Yes [id number] Take 1 [facility] mg tablet 7-20 tablet by [facility] o f 00:00: mouth [place] twice Medical daily Branch DILTIAZEM 2021-0 Yes [id number] Take 1 [facility] [place] 120 mg 24 7-20 capsule by [facility] hr capsule 00:00: mouth twice Medical daily Branch LOSARTAN 50 2021-0 Yes [id number] Take 1 [facility] mg tablet 7-20 tablet by [facility]y o f 00:00: mouth twice Medical daily Branch DILTIAZEM 2021-0 Yes [id number] Take 1 [facility] [place] 120 mg 24 7-20 capsule by [facility] hr capsule 00:00: mouth 00 twice Medical daily Branch LOSARTAN 50 2021-0 Yes [id number] Take 1 [facility] mg tablet 7-20 tablet by ity o f 00:00: mouth twice Medical daily Branch DILTIAZEM 2021-0 Yes [id number] Take 1 [facility] [place] 120 mg 24 7-20 capsule by [facility] of hr capsule 00:00: mouth twice Medical daily Branch LOSARTAN 50 2021-0 Yes [id number] Take 1 [facility] mg tablet 7-20 tablet by ity o f 00:00: mouth twice Medical daily Branch DILTIAZEM 2021-0 Yes [id number] Take 1 [facility] [place] 120 mg 24 7-20 capsule by [facility] of hr capsule 00:00: mouth twice Medical daily Branch LOSARTAN 50 2021-0 Yes [id number] Take 1 [facility] mg tablet 7-20 tablet by ity o f 00:00: mouth twice Medical daily Branch DILTIAZEM 2021-0 Yes [id number] Take 1 [facility] [place] 120 mg 24 7-20 capsule by [facility] of hr capsule 00:00: mouth twice Medical daily Branch LOSARTAN 50 2021-0 Yes [id number] Take 1 [facility] mg tablet 7-20 tablet by [facility]y o f 00:00: mouth twice Medical daily Branch DILTIAZEM 2021-0 Yes [id number] Take 1 [facility] [place] 120 mg 24 7-20 capsule by [facility] of hr capsule 00:00: mouth twice Medical daily Branch LOSARTAN 50 2021-0 Yes [id number] Take 1 [facility] mg tablet 7-20 tablet by ity o f 00:00: mouth twice Medical daily Branch DILTIAZEM 2021-0 Yes [id number] Take 1 [facility] [place] 120 mg 24 7-20 capsule by [facility] of hr capsule 00:00: mouth twice Medical daily Branch LOSARTAN 50 2021-0 Yes [id number] Take 1 [facility] mg tablet 7-20 tablet by ity o f 00:00: mouth twice Medical daily Branch DILTIAZEM 2021-0 Yes [id number] Take 1 [facility] [place] 120 mg 24 7-20 capsule by [facility] of hr capsule 00:00: mouth twice Medical daily Branch LOSARTAN 50 2021-0 Yes [id number] Take 1 [facility] mg tablet 7-20 tablet by ity o f 00:00: mouth twice Medical daily Branch DILTIAZEM 2021-0 Yes [id number] Take 1 [facility] [place] 120 mg 24 7-20 capsule by [facility] of hr capsule 00:00: mouth twice Medical daily Branch LOSARTAN 50 2021-0 Yes [id number] Take 1 [facility] mg tablet 7-20 tablet by ity o f 00:00: mouth twice Medical daily Branch DILTIAZEM 2021-0 Yes [id number] Take 1 [facility] [place] 120 mg 24 7-20 capsule by [facility] hr capsule 00:00: mouth twice Medical daily Branch LOSARTAN 50 2021-0 Yes [id number] Take 1 [facility] mg tablet 7-20 tablet by ity o f 00:00: mouth twice Medical daily Branch DILTIAZEM 2021-0 Yes [id number] Take 1 [facility] [place] 120 mg 24 7-20 capsule by [facility] of hr capsule 00:00: mouth twice Medical daily Branch LOSARTAN 50 2021-0 Yes [id number] Take 1 [facility] mg tablet 7-20 tablet by ity o f 00:00: mouth twice Medical daily Branch DILTIAZEM 2021-0 Yes [id number] Take 1 [facility] [place] 120 mg 24 7-20 capsule by [facility] of hr capsule 00:00: mouth twice Medical daily Branch LOSARTAN 50 2021-0 Yes [id number] Take 1 [facility] mg tablet 7-20 tablet by ity o f 00:00: mouth twice Medical daily Branch DILTIAZEM 2021-0 Yes [id number] Take 1 [facility] [place] 120 mg 24 7-20 capsule by [facility] of hr capsule 00:00: mouth twice Medical daily Branch LOSARTAN 50 2021-0 Yes [id number] Take 1 [facility] mg tablet 7-20 tablet by ity o f 00:00: mouth twice Medical daily Branch DILTIAZEM 2021-0 Yes [id number] Take 1 [facility] [place] 120 mg 24 7-20 capsule by [facility] of hr capsule 00:00: mouth twice Medical daily Branch LOSARTAN 50 2021-0 Yes [id number] Take 1 [facility] mg tablet 7-20 tablet by [facility]y o f 00:00: mouth twice Medical daily Branch DILTIAZEM 2021-0 Yes [id number] Take 1 [facility] [place] 120 mg 24 7-20 capsule by [facility] of hr capsule 00:00: mouth twice Medical daily Branch LOSARTAN 50 2021-0 Yes [id number] Take 1 [facility] mg tablet 7-20 tablet by ity o f 00:00: mouth twice Medical daily Branch DILTIAZEM 2021-0 Yes [id number] Take 1 [facility] [place] 120 mg 24 7-20 capsule by [facility] of hr capsule 00:00: mouth twice Medical daily Branch LOSARTAN 50 2021-0 Yes [id number] Take 1 [facility] mg tablet 7-20 tablet by [facility]y o f 00:00: mouth twice Medical daily Branch DILTIAZEM 2021-0 Yes [id number] Take 1 [facility] [place] 120 mg 24 7-20 capsule by [facility] of hr capsule 00:00: mouth twice Medical daily Branch LOSARTAN 50 2-0 Yes [id number] Take 1 [facility] mg tablet 7-20 tablet by ity o f 00:00: mouth twice Medical daily Branch DILTIAZEM 2021-0 Yes [id number] Take 1 [facility] [place] 120 mg 24 7-20 capsule by [facility] hr capsule 00:00: mouth twice Medical daily Branch LOSARTAN 50 2021-0 Yes [id number] Take 1 [facility] mg tablet 7-20 tablet by ity o f 00:00: mouth twice Medical daily Branch DILTIAZEM 2-0 Yes [id number] Take 1 [facility] [place] 120 mg 24 7-20 capsule by [facility] of hr capsule 00:00: mouth twice Medical daily Branch LOSARTAN 50 2021-0 Yes [id number] Take 1 [facility] mg tablet 7-20 tablet by [facility]y o f 00:00: mouth twice Medical daily Branch DILTIAZEM 2021-0 Yes [id number] Take 1 [facility] [place] 120 mg 24 7-20 capsule by [facility] of hr capsule 00:00: mouth twice Medical daily Branch LOSARTAN 50 2021-0 Yes [id number] Take 1 [facility] mg tablet 7-20 tablet by ity o f 00:00: mouth twice Medical daily Branch DILTIAZEM 2021-0 Yes [id number] Take 1 [facility] [place] 120 mg 24 7-20 capsule by [facility] of hr capsule 00:00: mouth twice Medical daily Branch LOSARTAN 50 2021-0 Yes [id number] Take 1 [facility] mg tablet 7-20 tablet by ity o f 00:00: mouth twice Medical daily Branch DILTIAZEM 2021-0 Yes [id number] Take 1 [facility] [place] 120 mg 24 7-20 capsule by [facility] of hr capsule 00:00: mouth twice Medical daily Branch LOSARTAN 50 2021-0 Yes [id number] Take 1 [facility] mg tablet 7-20 tablet by ity o f 00:00: mouth twice Medical daily Branch DILTIAZEM 2021-0 Yes [id number] Take 1 [facility] [place] 120 mg 24 7-20 capsule by [facility] of hr capsule 00:00: mouth twice Medical daily Branch LOSARTAN 50 2-0 Yes [id number] Take 1 [facility] mg tablet 7-20 tablet by ity o f 00:00: mouth twice Medical daily Branch DILTIAZEM 2-0 Yes [id number] Take 1 [facility] [place] 120 mg 24 7-20 capsule by [facility] of hr capsule 00:00: mouth twice Medical daily Branch LOSARTAN 50 2021-0 Yes [id number] Take 1 [facility] mg tablet 7-20 tablet by ity o f 00:00: mouth twice Medical daily Branch DILTIAZEM 2-0 Yes [id number] Take 1 [facility] [place] 120 mg 24 7-20 capsule by [facility] of hr capsule 00:00: mouth twice Medical daily Branch LOSARTAN 50 2021-0 Yes [id number] Take 1 [facility] mg tablet 7-20 tablet by ity o f 00:00: mouth twice Medical daily Branch DILTIAZEM 2021-0 Yes [id number] Take 1 [facility] [place] 120 mg 24 7-20 capsule by [facility] of hr capsule 00:00: mouth twice Medical daily Branch LOSARTAN 50 2021-0 Yes [id number] Take 1 [facility] mg tablet 7-20 tablet by ity o f 00:00: mouth twice Medical daily Branch DILTIAZEM 2021-0 Yes [id number] Take 1 [facility] [place] 120 mg 24 7-20 capsule by [facility] of hr capsule 00:00: mouth twice Medical daily Branch LOSARTAN 50 2021-0 Yes [id number] Take 1 [facility] mg tablet 7-20 tablet by ity o f 00:00: mouth twice Medical daily Branch DILTIAZEM 2021-0 Yes [id number] Take 1 [facility] [place] 120 mg 24 7-20 capsule by [facility] of hr capsule 00:00: mouth twice Medical daily Branch LOSARTAN 50 2021-0 Yes [id number] Take 1 [facility] mg tablet 7-20 tablet by ity o f 00:00: mouth twice Medical daily Branch DILTIAZEM 2021-0 Yes [id number] Take 1 [facility] [place] 120 mg 24 7-20 capsule by [facility]y of hr capsule 00:00: mouth twice Medical daily Branch LOSARTAN 50 2021-0 Yes [id number] Take 1 [facility] mg tablet 7-20 tablet by ity o f 00:00: mouth twice Medical daily Branch DILTIAZEM 2021-0 Yes [id number] Take 1 [facility] [place] 120 mg 24 7-20 capsule by [facility] of hr capsule 00:00: mouth twice Medical daily Branch LOSARTAN 50 2021-0 Yes [id number] Take 1 [facility] mg tablet 7-20 tablet by ity o f 00:00: mouth twice Medical daily Branch DILTIAZEM 2021-0 Yes [id number] Take 1 [facility] [place] 120 mg 24 7-20 capsule by [facility]y of hr capsule 00:00: mouth twice Medical daily Branch LOSARTAN 50 2-0 2- No [id number] Take 1 [facility] mg tablet 7-20 10-13 tablet by ity of 00:00: 00:00 mouth [place] 00 :00 twice Medical daily Branch DILTIAZEM 2021-0 2021- No [id number] Take 1 [facility] 120 mg 24 7-20 10-13 capsule by ity of hr capsule 00:00: 00:00 mouth [place] 00 :00 twice Medical daily Branch LOSARTAN 50 2021-0 2021- No [id number] Take 1 [facility] mg tablet 7-20 10-13 tablet by ity of 00:00: 00:00 mouth [place] 00 :00 twice Medical daily Branch DILTIAZEM 2021-0 2021- No [id number] Take 1 U nivers 120 mg 24 7-20 10-13 capsule by ity of hr capsule 00:00: 00:00 [facility] 00 :00 twice Medical daily Branch methocarbam 2021-0 Yes [id number] 500mg Take 1 [facility] oL 500 mg 7-02 tablet by ity o f tablet 00:00: [address] ([facility]) Medical times Branch daily. methocarbam 2021-0 Yes [id number] 500mg Take 1 [facility] oL 500 mg 7-02 tablet by ity o f tablet 00:00: [address] ([facility]) Medical times Branch daily. methocarbam 2021-0 Yes [id number] 500mg Take 1 [facility] oL 500 mg 7-02 tablet by ity o f tablet 00:00: [address] ([facility]) Medical times Branch daily. methocarbam 2021-0 Yes [id number] 500mg Take 1 [facility] oL 500 mg 7-02 tablet by ity o f tablet 00:00: [address] ([facility]) Medical times Branch daily. methocarbam 2021-0 Yes [id number] 500mg Take 1 [facility] oL 500 mg 7-02 tablet by ity o f tablet 00:00: [address] ([facility]) Medical times Branch daily. methocarbam 2021-0 2021- No [id number] 500mg Take 1 [facility] oL 500 mg 7-02 08-11 tablet by ity of tablet 00:00: 00:[address] 00 :00 ([facility]) Medical times Branch daily. methocarbam 2021-0 2- No [id number] 500mg Take 1 [facility] oL 500 mg 7-02 08-11 tablet by ity of tablet 00:00: 00:[address] 00 :00 ([facility]) Medical times Branch daily. SUMATRIPTAN 2022-0 Yes [id number] TAKE 1 [facility] 50 mg 6-17 TABLET BY ity of tablet 00:00: MOUTH [place] 00 NEEDED FOR Medical MIGRAINE Branch HEADACHE (MAY REPEAT IN TWO HOURS) SUMATRIPTAN 2022-0 Yes [id number] TAKE 1 [facility] 50 mg 6-17 TABLET BY ity of tablet 00:00: MOUTH [place] 00 NEEDED FOR Medical MIGRAINE Branch HEADACHE (MAY REPEAT IN TWO HOURS) SUMATRIPTAN 2022-0 Yes [id number] TAKE 1 [facility] 50 mg 6-17 TABLET BY ity of tablet 00:00: MOUTH [place] 00 NEEDED FOR Medical MIGRAINE Branch HEADACHE (MAY REPEAT IN TWO HOURS) SUMATRIPTAN 2022-0 Yes [id number] TAKE 1 [facility] 50 mg 6-17 TABLET BY ity of tablet 00:00: MOUTH [place] 00 NEEDED FOR Medical MIGRAINE Branch HEADACHE (MAY REPEAT IN TWO HOURS) SUMATRIPTAN 2022-0 Yes [id number] TAKE 1 [facility] 50 mg 6-17 TABLET BY ity of tablet 00:00: MOUTH [place] 00 NEEDED FOR Medical MIGRAINE Branch HEADACHE (MAY REPEAT IN TWO HOURS) SUMATRIPTAN 2022-0 Yes [id number] TAKE 1 [facility] 50 mg 6-17 TABLET BY ity of tablet 00:00: MOUTH [place] 00 NEEDED FOR Medical MIGRAINE Branch HEADACHE (MAY REPEAT IN TWO HOURS) SUMATRIPTAN 2022-0 Yes [id number] TAKE 1 [facility] 50 mg 6-17 TABLET BY [facility] tablet 00:00: MOUTH [place] 00 NEEDED FOR Medical MIGRAINE Branch HEADACHE (MAY REPEAT IN TWO HOURS) SUMATRIPTAN 2022-0 Yes [id number] TAKE 1 [facility] 50 mg 6-17 TABLET BY [facility] tablet 00:00: MOUTH [place] 00 NEEDED FOR Medical MIGRAINE Branch HEADACHE (MAY REPEAT IN TWO HOURS) SUMATRIPTAN 2022-0 Yes [id number] TAKE 1 [facility] 50 mg 6-17 TABLET BY [facility] tablet 00:00: MOUTH [place] 00 NEEDED FOR Medical MIGRAINE Branch HEADACHE (MAY REPEAT IN TWO HOURS) SUMATRIPTAN 2022-0 Yes [id number] TAKE 1 [facility] 50 mg 6-17 TABLET BY [facility] tablet 00:00: MOUTH [place] 00 NEEDED FOR Medical MIGRAINE Branch HEADACHE (MAY REPEAT IN TWO HOURS) SUMATRIPTAN 2022-0 Yes [id number] TAKE 1 [facility] 50 mg 6-17 TABLET BY [facility] tablet 00:00: MOUTH [place] 00 NEEDED FOR Medical MIGRAINE Branch HEADACHE (MAY REPEAT IN TWO HOURS) SUMATRIPTAN 2-0 Yes [id number] TAKE 1 [facility] 50 mg 6-17 TABLET BY [facility] tablet 00:00: MOUTH [place] 00 NEEDED FOR Medical MIGRAINE Branch HEADACHE (MAY REPEAT IN TWO HOURS) SUMATRIPTAN 2021-0 Yes [id number] TAKE 1 [facility] 50 mg 6-17 TABLET BY [facility] tablet 00:00: MOUTH [place] 00 NEEDED FOR Medical MIGRAINE Branch HEADACHE (MAY REPEAT IN TWO HOURS) SUMATRIPTAN 2021-0 Yes [id number] TAKE 1 [facility] 50 mg 6-17 TABLET BY [facility] tablet 00:00: MOUTH [place] 00 NEEDED FOR Medical MIGRAINE Branch HEADACHE (MAY REPEAT IN TWO HOURS) SUMATRIPTAN 2021-0 Yes [id number] TAKE 1 [facility] 50 mg 6-17 TABLET BY [facility] tablet 00:00: MOUTH [place] 00 NEEDED FOR Medical MIGRAINE Branch HEADACHE (MAY REPEAT IN TWO HOURS) SUMATRIPTAN 2021-0 Yes [id number] TAKE 1 [facility] 50 mg 6-17 TABLET BY [facility] of tablet 00:00: MOUTH [place] 00 NEEDED FOR Medical MIGRAINE Branch HEADACHE (MAY REPEAT IN TWO HOURS) SUMATRIPTAN 2021-0 Yes [id number] TAKE 1 [facility] 50 mg 6-17 TABLET BY [facility] tablet 00:00: MOUTH [place] 00 NEEDED FOR Medical MIGRAINE Branch HEADACHE (MAY REPEAT IN TWO HOURS) SUMATRIPTAN 2-0 2- No [id number] TAKE 1 [facility] 50 mg 6-17 09-06 TABLET BY [facility] tablet 00:00: 00:00 MOUTH [place] 00 :00 NEEDED FOR Medical MIGRAINE Branch HEADACHE (MAY REPEAT IN TWO HOURS) SUMATRIPTAN 2-0 2- No [id number] TAKE 1 [facility] 50 mg 6-17 09-06 TABLET BY [facility] of tablet 00:00: 00:00 MOUTH [place] 00 :00 NEEDED FOR Medical MIGRAINE Branch HEADACHE (MAY REPEAT IN TWO HOURS) SUMATRIPTAN 2-0 2- No [id number] TAKE 1 [facility] 50 mg 6-17 09-06 TABLET BY [facility] of tablet 00:00: 00:00 MOUTH [place] 00 :00 NEEDED FOR Medical MIGRAINE Branch HEADACHE (MAY REPEAT IN TWO HOURS) SUMATRIPTAN 2-0 2021- No [id number] TAKE 1 [facility] 50 mg 6-17 09-06 TABLET BY [facility] of tablet 00:00: 00:00 MOUTH [place] 00 :00 NEEDED FOR Medical MIGRAINE Branch HEADACHE (MAY REPEAT IN TWO HOURS) fexofenadin 0 Yes [id number] 180mg Take 1 [facility] e (LUIS 6-13 tablet by it[facility] of ALLERGY) 00:00: mouth [place] 180 mg 00 daily. Medical tablet Branch fexofenadin 0 Yes [id number] 180mg Take 1 [facility] e (LUIS 6-13 tablet by ity of ALLERGY) 00:00: mouth [place] 180 mg 00 daily. Medical tablet Branch fexofenadin 0 Yes [id number] 180mg Take 1 [facility] e (LUIS 6-13 tablet by it[facility] of ALLERGY) 00:00: mouth [place] 180 mg 00 daily. Medical tablet Branch fexofenadin Yes [id number] 180mg Take 1 [facility] e (LUIS 6-13 tablet by ity of ALLERGY) 00:00: mouth [place] 180 mg 00 daily. Medical tablet Branch fexofenadin Yes [id number] 180mg Take 1 [facility] e (LUIS 6-13 tablet by [facility] of ALLERGY) 00:00: mouth [place] 180 mg 00 daily. Medical tablet Branch fexofenadin 0 Yes [id number] 180mg Take 1 [facility] e (LUIS 6-13 tablet by [facility]y of ALLERGY) 00:00: mouth [place] 180 mg 00 daily. Medical tablet Branch fexofenadin 0 Yes [id number] 180mg Take 1 [facility] e (LUIS 6-13 tablet by [facility] of ALLERGY) 00:00: mouth [place] 180 mg 00 daily. Medical tablet Branch fexofenadin Yes [id number] 180mg Take 1 [facility] e (LUIS 6-13 tablet by [facility] of ALLERGY) 00:00: mouth [place] 180 mg 00 daily. Medical tablet Branch fexofenadin 0 Yes [id number] 180mg Take 1 [facility] e (LUIS 6-13 tablet by [facility] of ALLERGY) 00:00: mouth [place] 180 mg 00 daily. Medical tablet Branch fexofenadin 0 Yes [id number] 180mg Take 1 [facility] e (LUIS 6-13 tablet by [facility] of ALLERGY) 00:00: mouth [place] 180 mg 00 daily. Medical tablet Branch fexofenadin 2021-0 Yes [id number] 180mg Take 1 [facility] e (LUIS 6-13 tablet by [facility] of ALLERGY) 00:00: mouth [place] 180 mg 00 daily. Medical tablet Branch fexofenadin 0 Yes [id number] 180mg Take 1 [facility] e (LUIS 6-13 tablet by [facility]y of ALLERGY) 00:00: mouth [place] 180 mg 00 daily. Medical tablet Branch fexofenadin 0 Yes [id number] 180mg Take 1 [facility] e (LUIS 6-13 tablet by [facility]y of ALLERGY) 00:00: mouth [place] 180 mg 00 daily. Medical tablet Branch fexofenadin Yes [id number] 180mg Take 1 [facility] e (LUIS 6-13 tablet by ity of ALLERGY) 00:00: mouth [place] 180 mg 00 daily. Medical tablet Branch fexofenadin Yes [id number] 180mg Take 1 [facility] e (LUIS 6-13 tablet by [facility]y of ALLERGY) 00:00: mouth [place] 180 mg 00 daily. Medical tablet Branch fexofenadin Yes [id number] 180mg Take 1 [facility] e (LUIS 6-13 tablet by [facility]y of ALLERGY) 00:00: mouth [place] 180 mg 00 daily. Medical tablet Branch fexofenadin Yes [id number] 180mg Take 1 [facility] e (LUIS 6-13 tablet by [facility]y of ALLERGY) 00:00: mouth [place] 180 mg 00 daily. Medical tablet Branch fexofenadin 0 Yes [id number] 180mg Take 1 [facility] e (LUIS 6-13 tablet by [facility]y of ALLERGY) 00:00: mouth [place] 180 mg 00 daily. Medical tablet Branch fexofenadin 0 Yes [id number] 180mg Take 1 [facility] e (LUIS 6-13 tablet by ity of ALLERGY) 00:00: mouth [place] 180 mg 00 daily. Medical tablet Branch fexofenadin 0 Yes [id number] 180mg Take 1 [facility] e (LUIS 6-13 tablet by [facility]y of ALLERGY) 00:00: mouth [place] 180 mg 00 daily. Medical tablet Branch fexofenadin 0 Yes [id number] 180mg Take 1 [facility] e (LUIS 6-13 tablet by ity of ALLERGY) 00:00: mouth [place] 180 mg 00 daily. Medical tablet Branch fexofenadin 0 Yes [id number] 180mg Take 1 [facility] e (LUIS 6-13 tablet by [facility]y of ALLERGY) 00:00: mouth [place] 180 mg 00 daily. Medical tablet Branch fexofenadin 0 Yes [id number] 180mg Take 1 [facility] e (LUIS 6-13 tablet by [facility]y of ALLERGY) 00:00: mouth [place] 180 mg 00 daily. Medical tablet Branch fexofenadin 0 Yes [id number] 180mg Take 1 [facility] e (LUIS 6-13 tablet by [facility]y of ALLERGY) 00:00: mouth [place] 180 mg 00 daily. Medical tablet Branch fexofenadin 0 Yes [id number] 180mg Take 1 [facility] e (LUIS 6-13 tablet by [facility]y of ALLERGY) 00:00: mouth [place] 180 mg 00 daily. Medical tablet Branch fexofenadin Yes [id number] 180mg Take 1 [facility] e (LUIS 6-13 tablet by [facility]y of ALLERGY) 00:00: mouth [place] 180 mg 00 daily. Medical tablet Branch fexofenadin Yes [id number] 180mg Take 1 [facility] e (LUIS 6-13 tablet by [facility] of ALLERGY) 00:00: mouth [place] 180 mg 00 daily. Medical tablet Branch fexofenadin Yes [id number] 180mg Take 1 [facility] e (LUIS 6-13 tablet by [facility] of ALLERGY) 00:00: mouth [place] 180 mg 00 daily. Medical tablet Branch fexofenadin 2021-0 Yes [id number] 180mg Take 1 [facility] e (LUIS 6-13 tablet by [facility]y of ALLERGY) 00:00: mouth [place] 180 mg 00 daily. Medical tablet Branch fexofenadin 0 Yes [id number] 180mg Take 1 [facility] e (LUIS 6-13 tablet by [facility]y of ALLERGY) 00:00: mouth [place] 180 mg 00 daily. Medical tablet Branch fexofenadin 0 Yes [id number] 180mg Take 1 [facility] e (LUIS 6-13 tablet by [facility] of ALLERGY) 00:00: mouth [place] 180 mg 00 daily. Medical tablet Branch fexofenadin 0 Yes [id number] 180mg Take 1 [facility] e (LUIS 6-13 tablet by [facility] of ALLERGY) 00:00: mouth [place] 180 mg 00 daily. Medical tablet Branch fexofenadin Yes [id number] 180mg Take 1 [facility] e (LUIS 6-13 tablet by [facility] of ALLERGY) 00:00: mouth [place] 180 mg 00 daily. Medical tablet Branch fexofenadin Yes [id number] 180mg Take 1 [facility] e (LUIS 6-13 tablet by [facility] of ALLERGY) 00:00: mouth [place] 180 mg 00 daily. Medical tablet Branch fexofenadin Yes [id number] 180mg Take 1 [facility] e (LUIS 6-13 tablet by [facility] of ALLERGY) 00:00: mouth [place] 180 mg 00 daily. Medical tablet Branch fexofenadin Yes [id number] 180mg Take 1 [facility] e (LUIS 6-13 tablet by [facility] of ALLERGY) 00:00: mouth [place] 180 mg 00 daily. Medical tablet Branch fexofenadin Yes [id number] 180mg Take 1 [facility] e (LUIS 6-13 tablet by [facility]y of ALLERGY) 00:00: mouth [place] 180 mg 00 daily. Medical tablet Branch fexofenadin Yes [id number] 180mg Take 1 [facility] e (LUIS 6-13 tablet by [facility]y of ALLERGY) 00:00: mouth [place] 180 mg 00 daily. Medical tablet Branch fexofenadin Yes [id number] 180mg Take 1 [facility] e (LUIS 6-13 tablet by [facility]y of ALLERGY) 00:00: mouth [place] 180 mg 00 daily. Medical tablet Branch fexofenadin Yes [id number] 180mg Take 1 [facility] e (LUIS 6-13 tablet by ity of ALLERGY) 00:00: mouth [place] 180 mg 00 daily. Medical tablet Branch fexofenadin Yes [id number] 180mg Take 1 [facility] e (LUIS 6-13 tablet by ity of ALLERGY) 00:00: mouth [place] 180 mg 00 daily. Medical tablet Branch fexofenadin Yes [id number] 180mg Take 1 [facility] e (LUIS 6-13 tablet by ity of ALLERGY) 00:00: mouth [place] 180 mg 00 daily. Medical tablet Branch fexofenadin Yes [id number] 180mg Take 1 [facility] e (ULIS 6-13 tablet by ity of ALLERGY) 00:00: mouth [place] 180 mg 00 daily. Medical tablet Branch fexofenadin Yes [id number] 180mg Take 1 [facility] e (LUIS 6-13 tablet by ity of ALLERGY) 00:00: mouth [place] 180 mg 00 daily. Medical tablet Branch fexofenadin Yes [id number] 180mg Take 1 [facility] e (LUIS 6-13 tablet by ity of ALLERGY) 00:00: mouth [place] 180 mg 00 daily. Medical tablet Branch fexofenadin Yes [id number] 180mg Take 1 [facility] e (LUIS 6-13 tablet by ity of ALLERGY) 00:00: mouth [place] 180 mg 00 daily. Medical tablet Branch fexofenadin Yes [id number] 180mg Take 1 [facility] e (LUIS 6-13 tablet by ity of ALLERGY) 00:00: mouth [place] 180 mg 00 daily. Medical tablet Branch fexofenadin Yes [id number] 180mg Take 1 [facility] e (LUIS 6-13 tablet by ity of ALLERGY) 00:00: mouth [place] 180 mg 00 daily. Medical tablet Branch fexofenadin Yes [id number] 180mg Take 1 [facility] e (LUIS 6-13 tablet by ity of ALLERGY) 00:00: mouth [place] 180 mg 00 daily. Medical tablet Branch fexofenadin Yes [id number] 180mg Take 1 [facility] e (LUIS 6-13 tablet by ity of ALLERGY) 00:00: mouth [place] 180 mg 00 daily. Medical tablet Branch fexofenadin Yes [id number] 180mg Take 1 [facility] e (LUIS 6-13 tablet by ity of ALLERGY) 00:00: mouth [place] 180 mg 00 daily. Medical tablet Branch fexofenadin 0 Yes [id number] 180mg Take 1 [facility] e (LUIS 6-13 tablet by ity of ALLERGY) 00:00: mouth [place] 180 mg 00 daily. Medical tablet Branch fexofenadin Yes [id number] 180mg Take 1 [facility] e (LUIS 6-13 tablet by ity of ALLERGY) 00:00: mouth [place] 180 mg 00 daily. Medical tablet Branch fexofenadin Yes [id number] 180mg Take 1 [facility] e (LUIS 6-13 tablet by ity of ALLERGY) 00:00: mouth [place] 180 mg 00 daily. Medical tablet Branch fexofenadin Yes [id number] 180mg Take 1 [facility] e (LUIS 6-13 tablet by ity of ALLERGY) 00:00: mouth [place] 180 mg 00 daily. Medical tablet Branch fexofenadin Yes [id number] 180mg Take 1 [facility] e (LUIS 6-13 tablet by ity of ALLERGY) 00:00: mouth [place] 180 mg 00 daily. Medical tablet Branch fexofenadin Yes [id number] 180mg Take 1 [facility] e (LUIS 6-13 tablet by ity of ALLERGY) 00:00: mouth [place] 180 mg 00 daily. Medical tablet Branch fexofenadin Yes [id number] 180mg Take 1 [facility] e (LUIS 6-13 tablet by ity of ALLERGY) 00:00: mouth [place] 180 mg 00 daily. Medical tablet Branch fexofenadin Yes [id number] 180mg Take 1 [facility] e (LUIS 6-13 tablet by ity of ALLERGY) 00:00: mouth [place] 180 mg 00 daily. Medical tablet Branch fexofenadin Yes [id number] 180mg Take 1 [facility] e (LUIS 6-13 tablet by ity of ALLERGY) 00:00: mouth [place] 180 mg 00 daily. Medical tablet Branch fexofenadin Yes [id number] 180mg Take 1 [facility] e (LUIS 6-13 tablet by ity of ALLERGY) 00:00: mouth [place] 180 mg 00 daily. Medical tablet Branch fexofenadin Yes [id number] 180mg Take 1 [facility] e (LUIS 6-13 tablet by ity of ALLERGY) 00:00: mouth [place] 180 mg 00 daily. Medical tablet Branch fexofenadin Yes [id number] 180mg Take 1 [facility] e (LUIS 6-13 tablet by ity of ALLERGY) 00:00: mouth [place] 180 mg 00 daily. Medical tablet Branch fexofenadin Yes [id number] 180mg Take 1 [facility] e (LUIS 6-13 tablet by ity of ALLERGY) 00:00: mouth [place] 180 mg 00 daily. Medical tablet Branch fexofenadin 2022-0 Yes [id number] 180mg Take 1 [facility] e (LUIS 6-13 tablet by ity of ALLERGY) 00:00: mouth [place] 180 mg 00 daily. Medical tablet Branch fexofenadin Yes [id number] 180mg Take 1 [facility] e (LUIS 6-13 tablet by ity of ALLERGY) 00:00: mouth [place] 180 mg 00 daily. Medical tablet Branch fexofenadin Yes [id number] 180mg Take 1 [facility] e (LUIS 6-13 tablet by ity of ALLERGY) 00:00: mouth [place] 180 mg 00 daily. Medical tablet Branch fexofenadin Yes [id number] 180mg Take 1 [facility] e (LUIS 6-13 tablet by ity of ALLERGY) 00:00: mouth [place] 180 mg 00 daily. Medical tablet Branch fexofenadin Yes [id number] 180mg Take 1 [facility] e (LUIS 6-13 tablet by ity of ALLERGY) 00:00: mouth [place] 180 mg 00 daily. Medical tablet Branch fexofenadin Yes [id number] 180mg Take 1 [facility] e (LUIS 6-13 tablet by ity of ALLERGY) 00:00: mouth [place] 180 mg 00 daily. Medical tablet Branch fexofenadin Yes [id number] 180mg Take 1 [facility] e (LUIS 6-13 tablet by ity of ALLERGY) 00:00: mouth [place] 180 mg 00 daily. Medical tablet Branch fexofenadin Yes [id number] 180mg Take 1 [facility] e (LUIS 6-13 tablet by ity of ALLERGY) 00:00: mouth [place] 180 mg 00 daily. Medical tablet Branch fexofenadin 0 2022- No [id number] 180mg Take 1 [facility] e (LUIS 6-13 -24 tablet by ity of ALLERGY) 00:00: 00:00 mouth [place] 180 mg 00 :00 daily. Medical tablet Branch fexofenadin 2022- No [id number] 180mg Take 1 [facility] e (LUIS 6-13 -24 tablet by ity of ALLERGY) 00:00: 00:00 mouth [place] 180 mg 00 :00 daily. Medical tablet Branch fexofenadin 2022- No [id number] 180mg Take 1 [facility] e (LUIS 6-13 - tablet by ity of ALLERGY) 00:00: 00:00 mouth [place] 180 mg 00 :00 daily. Medical tablet Branch fexofenadin 3- No [id number] 180mg Take 1 [facility] e (LUIS 03-08 tablet by ity of ALLERGY) 00:00: 00:00 mouth [place] 180 mg 00 :00 daily. Medical tablet Branch fexofenadin 3- No [id number] 180mg Take 1 [facility] e (LUIS 03-08 tablet by ity of ALLERGY) 00:00: 00:00 mouth [place] 180 mg 00 :00 daily. Medical tablet Branch fexofenadin 2022- No [id number] 180mg Take 1 [facility] e (LUIS 03-08 tablet by ity of ALLERGY) 00:00: 00:00 mouth [place] 180 mg 00 :00 daily. Medical tablet Branch fexofenadin 2022- No [id number] 180mg Take 1 [facility] e (LUIS 03-08 tablet by ity of ALLERGY) 00:00: 00:00 mouth [place] 180 mg 00 :00 daily. Medical tablet Branch rosuvastati Yes [id number] 10mg Take 1 [facility] n 10 mg 6-08 tablet by ity of tablet 00:00: mouth at [place] [address] bedtime. Medical Branch rosuvastati Yes [id number] 10mg Take 1 [facility] n 10 mg 6-08 tablet by ity of tablet 00:00: mouth at [place] [address] bedtime. Medical Branch rosuvastati Yes [id number] 10mg Take 1 [facility] n 10 mg 6-08 tablet by ity of tablet 00:00: mouth at [place] [address] bedtime. Medical Branch rosuvastati 0 Yes [id number] 10mg Take 1 [facility] n 10 mg 6-08 tablet by ity of tablet 00:00: mouth at [place] 00 bedtime. Medical Branch rosuvastati Yes [id number] 10mg Take 1 [facility] n 10 mg 6-08 tablet by ity of tablet 00:00: mouth at [place] 00 bedtime. Medical Branch rosuvastati Yes [id number] 10mg Take 1 [facility] n 10 mg 6-08 tablet by ity of tablet 00:00: mouth at [place] [address] bedtime. Medical Branch rosuvastati 2021-0 Yes [id number] 10mg Take 1 [facility] n 10 mg 6-08 tablet by ity of tablet 00:00: mouth at [place] bedtime. Medical Branch rosuvastati 2021-0 Yes [id number] 10mg Take 1 [facility] n 10 mg 6-08 tablet by ity of tablet 00:00: mouth at [place] bedtime. Medical Branch rosuvastati 2021-0 Yes [id number] 10mg Take 1 [facility] n 10 mg 6-08 tablet by ity of tablet 00:00: mouth at [place] bedtime. Medical Branch rosuvastati 2021-0 Yes [id number] 10mg Take 1 [facility] n 10 mg 6-08 tablet by ity of tablet 00:00: mouth at [place] bedtime. Medical Branch rosuvastati 2021-0 Yes [id number] 10mg Take 1 [facility] n 10 mg 6-08 tablet by ity of tablet 00:00: mouth at [place] bedtime. Medical Branch rosuvastati 2021-0 Yes [id number] 10mg Take 1 [facility] n 10 mg 6-08 tablet by ity of tablet 00:00: mouth at [place] bedtime. Medical Branch rosuvastati 2021-0 Yes [id number] 10mg Take 1 [facility] n 10 mg 6-08 tablet by ity of tablet 00:00: mouth at [place] [address] bedtime. Medical Branch rosuvastati Yes [id number] 10mg Take 1 [facility] n 10 mg 6-08 tablet by ity of tablet 00:00: mouth at [place] [address] bedtime. Medical Branch rosuvastati 2021-0 Yes [id number] 10mg Take 1 [facility] n 10 mg 6-08 tablet by ity of tablet 00:00: mouth at [place] [address] bedtime. Medical Branch rosuvastati 2021-0 Yes [id number] 10mg Take 1 [facility] n 10 mg 6-08 tablet by ity of tablet 00:00: mouth at [place] [address] bedtime. Medical Branch rosuvastati 2021-0 Yes [id number] 10mg Take 1 [facility] n 10 mg 6-08 tablet by ity of tablet 00:00: mouth at [place] [address] bedtime. Medical Branch rosuvastati 2021-0 Yes [id number] 10mg Take 1 [facility] n 10 mg 6-08 tablet by ity of tablet 00:00: mouth at [place] [address] bedtime. Medical Branch rosuvastati 2021- Yes [id number] 10mg Take 1 [facility] n 10 mg 6-08 tablet by ity of tablet 00:00: mouth at [place] [address] bedtime. Medical Branch rosuvastati 2021-0 Yes [id number] 10mg Take 1 [facility] n 10 mg 6-08 tablet by ity of tablet 00:00: mouth at [place] [address] bedtime. Medical Branch rosuvastati 2021-0 Yes [id number] 10mg Take 1 [facility] n 10 mg 6-08 tablet by ity of tablet 00:00: mouth at [place] [address] bedtime. Medical Branch rosuvastati 2021- Yes [id number] 10mg Take 1 [facility] n 10 mg 6-08 tablet by ity of tablet 00:00: mouth at [place] [address] bedtime. Medical Branch rosuvastati Yes [id number] 10mg Take 1 [facility] n 10 mg 6-08 tablet by ity of tablet 00:00: mouth at [place] [address] bedtime. Medical Branch rosuvastati Yes [id number] 10mg Take 1 [facility] n 10 mg 6-08 tablet by ity of tablet 00:00: mouth at [place] [address] bedtime. Medical Branch rosuvastati Yes [id number] 10mg Take 1 [facility] n 10 mg 6-08 tablet by ity of tablet 00:00: mouth at [place] [address] bedtime. Medical Branch rosuvastati Yes [id number] 10mg Take 1 [facility] n 10 mg 6-08 tablet by ity of tablet 00:00: mouth at [place] [address] bedtime. Medical Branch rosuvastati 2021-0 Yes [id number] 10mg Take 1 [facility] n 10 mg 6-08 tablet by ity of tablet 00:00: mouth at [place] [address] bedtime. Medical Branch rosuvastati 2021-0 Yes [id number] 10mg Take 1 [facility] n 10 mg 6-08 tablet by ity of tablet 00:00: mouth at [place] [address] bedtime. Medical Branch rosuvastati 2021-0 Yes [id number] 10mg Take 1 [facility] n 10 mg 6-08 tablet by ity of tablet 00:00: mouth at [place] [address] bedtime. Medical Branch rosuvastati 2021-0 Yes [id number] 10mg Take 1 [facility] n 10 mg 6-08 tablet by ity of tablet 00:00: mouth at [place] bedtime. Medical Branch rosuvastati 2021- Yes [id number] 10mg Take 1 [facility] n 10 mg 6-08 tablet by ity of tablet 00:00: mouth at [place] bedtime. Medical Branch rosuvastati 0 Yes [id number] 10mg Take 1 [facility] n 10 mg 6-08 tablet by ity of tablet 00:00: mouth at [place] bedtime. Medical Branch rosuvastati 2021-0 Yes [id number] 10mg Take 1 [facility] n 10 mg 6-08 tablet by ity of tablet 00:00: mouth at [place] bedtime. Medical Branch rosuvastati 2021- Yes [id number] 10mg Take 1 [facility] n 10 mg 6-08 tablet by ity of tablet 00:00: mouth at [place] bedtime. Medical Branch rosuvastati Yes [id number] 10mg Take 1 [facility] n 10 mg 6-08 tablet by ity of tablet 00:00: mouth at [place] bedtime. Medical Branch rosuvastati Yes [id number] 10mg Take 1 [facility] n 10 mg 6-08 tablet by ity of tablet 00:00: mouth at [place] bedtime. Medical Branch rosuvastati Yes [id number] 10mg Take 1 [facility] n 10 mg 6-08 tablet by ity of tablet 00:00: mouth at [place] bedtime. Medical Branch rosuvastati Yes [id number] 10mg Take 1 [facility] n 10 mg 6-08 tablet by ity of tablet 00:00: mouth at [place] [address] bedtime. Medical Branch rosuvastati 2021-0 Yes [id number] 10mg Take 1 [facility] n 10 mg 6-08 tablet by ity of tablet 00:00: mouth at [place] [address] bedtime. Medical Branch rosuvastati 2021-0 Yes [id number] 10mg Take 1 [facility] n 10 mg 6-08 tablet by ity of tablet 00:00: mouth at [place] [address] bedtime. Medical Branch rosuvastati 2021-0 Yes [id number] 10mg Take 1 [facility] n 10 mg 6-08 tablet by ity of tablet 00:00: mouth at [place] [address] bedtime. Medical Branch rosuvastati 2021-0 Yes [id number] 10mg Take 1 [facility] n 10 mg 6-08 tablet by ity of tablet 00:00: mouth at [place] 00 bedtime. [facility] rosuvastati Yes [id number] 10mg Take 1 [facility] n 10 mg 6-08 tablet by ity of tablet 00:00: mouth at [place] 00 bedtime. [facility] rosuvastati Yes [id number] 10mg Take 1 [facility] n 10 mg 6-08 tablet by ity of tablet 00:00: mouth at [place] 00 bedtime. [facility] rosuvastati Yes [id number] 10mg Take 1 [facility] n 10 mg 6-08 tablet by ity of tablet 00:00: mouth at [place] 00 bedtime. [facility] rosuvastati 2021- No [id number] 10mg Take 1 [facility] n 10 mg 6-08 10-13 tablet by ity of tablet 00:00: 00:00 mouth at [place] 00 :00 bedtime. [facility] rosuvastati 2021- No [id number] 10mg Take 1 [facility] n 10 mg 6-08 10-13 tablet by ity of tablet 00:00: 00:00 mouth at [place] 00 :00 bedtime. [facility] rosuvastati 2021- No [id number] 10mg Take 1 [facility] n 10 mg 6-08 10-13 tablet by ity of tablet 00:00: 00:00 mouth at [place] 00 :00 bedtime. [facility] water for 2021- No PRN, [...] Tue03/02/22 at 0745, Routine, DSU Pre-op lactated 2021-0 202- No 1000mL at 42 [facility] rs ringers IV 03-02 06-07 mL/hr, ity of infusion 12:45: 12:59 1,000 mL, Mean[place] as 1,000 mL 00 :00 IV Medical Infusion, Branch ONCE, 1 dose, On Tue03/02/22 at 0745, Routine, DSU Pre-op FOLIC ACID Yes Take by [facility] ers ORAL 6- mouth ity of 11:23: daily. [place] Medical Branch MULTIVIT Yes Take by [facility] s &MINERALS/F 6- mouth. ity of ERROUS FUM 11:23: [place] (MULTI Medical VITAMIN Branch ORAL) METHYLCELLU Yes [facility] LOSE (FIBER 6 ity of THERAPY 11:23: [place] MISC) Medical Branch DOCUSATE Yes Take by [facility] s SODIUM 6- mouth. ity of (COLACE 11:23: [place] ORAL) 09 Medical Branch vitamin C Yes 1000mg Take 1,000 Univers with derrell 6-07 mg by ity of hips 11:23: mouth [place] (VITAMIN C) 09 daily. Medica l 1,000 mg Branch tablet cholecalcif Yes 1000U Take 1,000 Univers edmar, 6-07 Units by ity of vitamin D3, 11:23: mouth [place] (VITAMIN 09 daily. Medical D3) 1,000 Branch unit tablet CRANBERRY Yes Take by [facility] rs FRUIT - mouth ity of EXTRACT 11:23: daily. [place] (CRAN[place]ERRY Medical ORAL) Branch CALCIUM Yes Take by Univers ORAL 6-07 mouth ity of 11:23: daily. [place] Medical Branch DOCOSAHEXAN Yes 1000mg Take 1,000 Univers OIC 6-07 mg by ity of ACID/EPA 11:23: mouth [place] (FISH OIL 09 daily. Medical ORAL) Branch BIOTIN ORAL Yes Take by Uni vers 6- mouth. ity of 11:23: [place] [address] Medical Branch FOLIC ACID Yes Take by Univ ers ORAL 6-07 mouth ity of 11:23: daily. [place] [address] Medical Branch MULTIVIT Yes Take by Univer s &MINERALS/F 6-07 mouth. ity of ERROUS FUM 11:23: [place] ([place] [id number] Medical VITAMIN Branch ORAL) METHYLCELLU Yes Univer s LOSE (FIBER 6-07 ity of THERAPY 11:23: [facility]) 09 Medical Branch DOCUSATE Yes Take by Univer s SODIUM 6-07 mouth. ity of (COLACE 11:23: [place] ORAL) 09 Medical Branch vitamin C Yes 1000mg Take 1,000 Univers with derrell 6-07 mg by ity of hips 11:23: mouth [place] (VITAMIN C) 09 daily. Medica l 1,000 mg Branch tablet cholecalcif Yes 1000U Take 1,000 Univers edmar, 6-07 Units by ity of vitamin D3, 11:23: mouth [place] (VITAMIN 09 daily. Medical D3) 1,000 Branch unit tablet CRANBERRY Yes Take by Unive rs FRUIT 6-07 mouth ity of EXTRACT 11:23: daily. [place] (CRANBERRY Medical ORAL) Branch CALCIUM Yes Take by Univers ORAL 6-07 mouth ity of 11:23: daily. [place] [address] Medical Branch DOCOSAHEXAN Yes 1000mg Take 1,000 Univers OIC 6-07 mg by ity of ACID/EPA 11:23: mouth [place] (FISH OIL 09 daily. Medical ORAL) Branch BIOTIN ORAL Yes Take by Uni vers 6-07 mouth. ity of 11:23: [place] [address] Medical Branch FOLIC ACID Yes Take by Univ ers ORAL 6-07 mouth ity of 11:23: daily. [place] [address] Medical Branch MULTIVIT Yes Take by Univer s &MINERALS/F 6-07 mouth. ity of ERROUS FUM 11:23: [place] ([place] [id number] Medical VITAMIN Branch ORAL) METHYLCELLU Yes [facility] LOSE (FIBER 6-07 ity of THERAPY 11:23: [place] MIS) 09 Medical Branch DOCUSATE Yes Take [...] Branch unit tablet CRANBERRY [facility] FRUIT [facility]-07 mouth ity of EXTRACT 11:23: daily. [place] ([place] Medical ORAL) Branch CALCIUM Yes Take by [facility] ORAL 6-07 mouth ity of 11:23: daily. [place] [facility] DOCOSAHEXAN Yes 1000mg Take 1,000 [facility] OIC 6-07 mg by ity of ACID/EPA 11:23: mouth [place] (FISH OIL 09 daily. Medical ORAL) Branch BIOTIN ORAL Yes Take by Uni vers 6-07 mouth. ity of 11:23: [place] [address] Medical Branch FOLIC ACID Yes Take by [facility] ers ORAL 6-07 mouth ity of 11:23: daily. [place] [facility] MULTIVIT Yes Take by [facility] s &MINERALS/F 6-07 mouth. ity of ERROUS FUM 11:23: [place] (MULTI 09 Medical VITAMIN Branch ORAL) METHYLCELLU Yes [facility]iver s LOSE (FIBER 6-07 ity of THERAPY 11:23: [place] MIS) 09 Medical Branch [facility]ATE [facility] mouth. ity of (COLACE 11:23: [place] ORAL) 09 Medical Branch vitamin C Yes 1000mg Take 1,000 [facility] with derrell 6-07 mg by ity of hips 11:23: mouth [place] (VITAMIN C) 09 daily. Medica l 1,000 mg Branch tablet cholecalcif Yes 1000U Take 1,000 [facility] edmar, 6-07 Units by ity of vitamin D3, 11:23: mouth [place] (VITAMIN 09 daily. Medical D3) 1,000 Branch unit tablet CRANBERRY 0 Yes Take by [facility] rs FRUIT 6-07 mouth ity of EXTRACT 11:23: daily. [place] ([place] 09 Medical ORAL) Branch CALCIUM Yes Take by [facility] ORAL 6-07 mouth ity of 11:23: daily. Medical Branch DOCOSAHEXAN Yes 1000mg Take 1,000 [facility] OIC 6-07 mg by ity of ACID/EPA 11:23: mouth [place] (FISH OIL 09 daily. Medical ORAL) Branch BIOTIN ORAL Yes Take by [facility] vers 6-07 mouth. ity of 11:23: Medical Branch FOLIC ACID Yes Take by [facility] ers ORAL 6-07 mouth ity of 11:23: daily. [place] [facility] MULTIVIT Yes Take by [facility] s &MINERALS/F 6-07 mouth. ity of ERROUS FUM 11:23: [place] (MULTI 09 Medical VITAMIN Branch ORAL) METHYLCELLU Yes [facility]iver s LOSE (FIBER 6-07 ity of THERAPY 11:23: [place] MISC) Medical Branch DOCUSATE Yes Take by [facility] s SODIUM 6-07 mouth. ity of (COLACE 11:23: [place] ORAL) Medical Branch vitamin C Yes 1000mg Take 1,000 [facility] with derrell 6-07 mg by ity of hips 11:23: mouth [place] (VITAMIN C) 09 daily. Medica l 1,000 mg Branch tablet cholecalcif Yes 1000U Take 1,000 [facility] edmar, 6-07 Units by ity of vitamin D3, 11:23: mouth [place] (VITAMIN 09 daily. Medical D3) 1,000 Branch unit tablet CRANBERRY Yes Take by [facility] rs FRUIT 6-07 mouth ity of EXTRACT 11:23: daily. [place] ([place] Medical ORAL) Branch CALCIUM Yes Take by [facility] ORAL 6-07 mouth ity of 11:23: daily. [place] [facility] Branch DOCOSAHEXAN Yes 1000mg Take 1,000 [facility] OIC 6-07 mg by ity of ACID/EPA 11:23: mouth [place] (FISH OIL 09 daily. Medical ORAL) Branch BIOTIN ORAL Yes Take by [facility] vers 6-07 mouth. ity of 11:23: Medical Branch FOLIC ACID Yes Take by [facility] ers ORAL 6-07 mouth ity of 11:23: daily. [place] [address] Medical Branch MULTIVIT Yes Take by [facility] s &MINERALS/F 6-07 mouth. ity of ERROUS FUM 11:23: [place] (MULTI 09 Medical VITAMIN Branch ORAL) METHYLCELLU Yes Univer s LOSE (FIBER 6-07 ity of THERAPY 11:23: [facility]) Medical Branch DOCUSATE Yes Take by [facility]iver s SODIUM 6-07 mouth. ity of (COLACE 11:23: [place] ORAL) Medical Branch vitamin C Yes 1000mg Take 1,000 [facility] with derrell 6-07 mg by ity of hips 11:23: mouth [place] (VITAMIN C) 09 daily. Medica l 1,000 mg Branch tablet cholecalcif Yes 1000U Take 1,000 [facility] edmar, 6-07 Units by ity of vitamin D3, 11:23: mouth [place] (VITAMIN 09 daily. Medical D3) 1,000 Branch unit tablet CRANBERRY Yes Take by [facility] rs FRUIT 6-07 mouth ity of EXTRACT 11:23: daily. [place] ([place] 09 Medical ORAL) Branch CALCIUM Yes Take by [facility] ORAL 6-07 mouth ity of 11:23: daily. [place] [address] Medical Branch DOCOSAHEXAN Yes 1000mg Take 1,000 [facility] OIC 6-07 mg by ity of ACID/EPA 11:23: mouth [place] (FISH OIL 09 daily. Medical ORAL) Branch BIOTIN ORAL Yes Take by [facility] vers 6-07 mouth. ity of 11:23: [place] [address] Medical Branch FOLIC ACID Yes Take by [facility] ers ORAL 6-07 mouth ity of 11:23: daily. [place] [address] Medical Branch MULTIVIT Yes Take by [facility]iver s &MINERALS/F 6-07 mouth. ity of ERROUS FUM 11:23: [place] (MULTI 09 Medical VITAMIN Branch ORAL) METHYLCELLU 0 Yes Univer s LOSE (FIBER 6-07 ity of THERAPY 11:23: [facility]) Medical Branch DOCUSATE Yes Take by Univer s SODIUM 6-07 mouth. ity of (COLACE 11:23: [place] ORAL) 09 Medical Branch vitamin C Yes [...] 6-07 mouth ity of EXTRACT 11:23: daily. [place] ([place] Medical ORAL) Branch CALCIUM Yes Take by [facility] ORAL 6-07 mouth ity of 11:23: daily. [place] [facility] Branch DOCOSAHEXAN Yes 1000mg Take 1,000 [facility] OIC 6-07 mg by ity of ACID/EPA 11:23: mouth [place] (FISH OIL 09 daily. Medical ORAL) Branch BIOTIN ORAL Yes Take by [facility] vers 6-07 mouth. ity of 11:23: [place] [facility] Branch FOLIC ACID Yes Take by [facility] ers ORAL 6-07 mouth ity of 11:23: daily. [place] [facility] &[facility]-07 mouth. ity of ERROUS FUM 11:23: [place] (MULTI 09 Medical VITAMIN Branch ORAL) METHYLCELLU Yes Univer s LOSE (FIBER 6-07 ity of THERAPY 11:23: [place] MISC) 09 Medical Branch DOCUSATE [facility]-07 mouth. ity of (COLACE 11:23: [place] ORAL) 09 Medical Branch vitamin C Yes 1000mg Take 1,000 [facility] with derrell 6-07 mg by ity of hips 11:23: mouth [place] (VITAMIN C) 09 daily. Medica l 1,000 mg Branch tablet cholecalcif 0 Yes 1000U Take 1,000 [facility] edmar, 6-07 Units by ity of vitamin D3, 11:23: mouth [place] (VITAMIN 09 daily. Medical D3) 1,000 Branch unit tablet CRANBERRY 2021-0 Yes Take by [facility]ive rs FRUIT 6-07 mouth ity of EXTRACT 11:23: daily. [place] ([place] Medical ORAL) Branch CALCIUM 0 Yes Take by [facility] ORAL 6-07 mouth ity of 11:23: daily. [place] [facility] Branch DOCOSAHEXAN Yes 1000mg Take 1,000 [facility] OIC 6-07 mg by ity of ACID/EPA 11:23: mouth [place] (FISH OIL 09 daily. Medical ORAL) Branch BIOTIN ORAL Yes Take by [facility] vers 6-07 mouth. ity of 11:23: Medical Branch FOLIC ACID Yes Take by [facility] ers ORAL 6-07 mouth ity of 11:23: daily. [place] [facility] MULTIVIT Yes Take by [facility] s &MINERALS/F 6-07 mouth. ity of ERROUS FUM 11:23: [place] (MULTI 09 Medical VITAMIN Branch ORAL) [facility]U [facility] ity of THERAPY 11:23: [place] MISC) 09 Medical Branch DOCUSATE Yes Take by [facility] s SODIUM 6-07 mouth. ity of (COLACE 11:23: [place] ORAL) 09 Medical Branch vitamin C Yes 1000mg Take 1,000 [facility] with derrell 6-07 mg by ity of hips 11:23: mouth [place] (VITAMIN C) 09 daily. Medica l 1,000 mg Branch tablet cholecalcif Yes 1000U Take 1,000 [facility] edmar, 6-07 Units by ity of vitamin D3, 11:23: mouth [place] (VITAMIN 09 daily. Medical D3) 1,000 Branch unit tablet CRANBERRY Yes Take by [facility] rs FRUIT 6-07 mouth ity of EXTRACT 11:23: daily. [place] ([place] Medical ORAL) Branch CALCIUM Yes Take by [facility] ORAL 6-07 mouth ity of 11:23: daily. [place] [facility] Branch DOCOSAHEXAN Yes 1000mg Take 1,000 [facility] OIC 6-07 mg by ity of ACID/EPA 11:23: mouth [place] (FISH OIL 09 daily. Medical ORAL) Branch BIOTIN ORAL Yes Take by [facility] vers 6-07 mouth. ity of 11:23: Medical Branch FOLIC ACID Yes Take by [facility] ers ORAL 6-07 mouth ity of 11:23: daily. [place] [facility] Branch MULTIVIT Yes Take by [facility] s &MINERALS/F 6-07 mouth. ity of ERROUS FUM 11:23: [place] (MULTI 09 Medical VITAMIN Branch ORAL) METHYLCELLU [...] by ity of vitamin D3, 11:23: mouth [place] (VITAMIN 09 daily. Medical D3) 1,000 Branch unit tablet CRANBERRY Yes [facility] FRUIT 6-07 mouth ity of EXTRACT 11:23: daily. [place] ([place] 09 Medical ORAL) Branch CALCIUM Yes Take by [facility] ORAL 6-07 mouth ity of 11:23: daily. [place] [facility] Branch DOCOSAHEXAN Yes 1000mg Take 1,000 [facility] OIC 6-07 mg by ity of ACID/EPA 11:23: mouth [place] (FISH OIL 09 daily. Medical ORAL) Branch BIOTIN ORAL Yes Take by [facility] vers 6-07 mouth. ity of 11:23: [place] [address] Medical Branch FOLIC ACID Yes Take by [facility] ers ORAL 6-07 mouth ity of 11:23: daily. [place] [address] Medical Branch MULTIVIT Yes Take by [facility] s &MINERALS/F 6-07 mouth. ity of ERROUS FUM 11:23: [place] (MULTI 09 Medical VITAMIN Branch ORAL) METHYLCELLU [...] by ity of vitamin D3, 11:23: mouth [place] (VITAMIN 09 daily. Medical D3) 1,000 Branch unit tablet CRANBERRY Yes [facility] FRUIT 6-07 mouth ity of EXTRACT 11:23: daily. [place] ([place] 09 Medical ORAL) Branch CALCIUM Yes Take by [facility] ORAL 6-07 mouth ity of 11:23: daily. [place] [facility] Branch DOCOSAHEXAN Yes 1000mg Take 1,000 [facility] OIC 6-07 mg by ity of ACID/EPA 11:23: mouth [place] (FISH OIL 09 daily. Medical ORAL) Branch BIOTIN ORAL Yes Take by [facility] vers 6-07 mouth. ity of 11:23: [place] [facility] FOLIC ACID Yes Take by [facility] ers ORAL 6-07 mouth ity of 11:23: daily. [place] [facility] MULTIVIT Yes Take by [facility] s &MINERALS/F 6-07 mouth. ity of ERROUS FUM 11:23: [place] (MULTI 09 Medical VITAMIN Branch ORAL) METHYLCELLU Yes [facility] s LOSE (FIBER 6-07 ity of THERAPY 11:23: [place] MISC) 09 Medical Branch DOCUSATE Yes Take by [facility] s SODIUM 6-07 mouth. ity of (COLACE 11:23: [place] ORAL) 09 Medical Branch vitamin C Yes 1000mg Take 1,000 [facility] with derrell 6-07 mg by ity of hips 11:23: mouth [place] (VITAMIN C) 09 daily. Medica l 1,000 mg Branch tablet cholecalcif Yes 1000U Take 1,000 [facility] edmar, 6-07 Units by ity of vitamin D3, 11:23: mouth [place] (VITAMIN 09 daily. Medical D3) 1,000 Branch unit tablet CRANBERRY Yes Take by [facility] rs FRUIT 6-07 mouth ity of EXTRACT 11:23: daily. [place] ([place] 09 Medical ORAL) Branch CALCIUM Yes Take by [facility] ORAL 6-07 mouth ity of 11:23: daily. [place] [facility] Branch DOCOSAHEXAN Yes 1000mg Take 1,000 [facility] OIC 6-07 mg by ity of ACID/EPA 11:23: mouth [place] (FISH OIL 09 daily. Medical ORAL) Branch BIOTIN ORAL Yes Take by [facility] vers 6-07 mouth. ity of 11:23: Medical Branch FOLIC ACID Yes Take by [facility] ers ORAL 6-07 mouth ity of 11:23: daily. [place] [facility] MULTIVIT Yes Take by [facility]iver s &MINERALS/F 6-07 mouth. ity of ERROUS FUM 11:23: [place] (MULTI 09 Medical VITAMIN Branch ORAL) METHYLCELLU Yes Univer s LOSE (FIBER 6-07 ity of THERAPY 11:23: [facility]) 09 Medical Branch DOCUSATE Yes Take by Univer s SODIUM 6-07 mouth. ity of (COLACE 11:23: [place] ORAL) 09 Medical Branch vitamin C Yes 1000mg Take 1,000 [facility] with derrell 6-07 mg by ity of hips 11:23: mouth [place] (VITAMIN C) 09 daily. Medica l 1,000 mg Branch tablet cholecalcif Yes 1000U Take 1,000 [facility] edmar, 6-07 Units by ity of vitamin D3, 11:23: mouth [place] (VITAMIN 09 daily. Medical D3) 1,000 Branch unit tablet CRANBERRY Yes Take by [facility] rs FRUIT 6-07 mouth ity of EXTRACT 11:23: daily. [place] ([place] 09 Medical ORAL) Branch CALCIUM Yes Take by [facility] ORAL 6-07 mouth ity of 11:23: daily. Medical Branch DOCOSAHEXAN Yes 1000mg Take 1,000 [facility] OIC 6-07 mg by ity of ACID/EPA 11:23: mouth [place] (FISH OIL 09 daily. Medical ORAL) Branch BIOTIN ORAL Yes Take by [facility] vers 6-07 mouth. ity of 11:23: Medical Branch FOLIC ACID Yes Take by Univ ers ORAL 6-07 mouth ity of 11:23: daily. [place] [facility] Branch MULTIVIT Yes Take by [facility]iver s &MINERALS/F 6-07 mouth. ity of ERROUS FUM 11:23: [place] (MULTI 09 Medical VITAMIN Branch ORAL) METHYLCELLU 0 Yes Univer s LOSE (FIBER 6-07 ity of THERAPY 11:23: [facility]) 09 Medical Branch DOCUSATE Yes [facility]-07 mouth. ity of (COLACE 11:23: [place] ORAL) 09 Medical Branch vitamin C Yes 1000mg Take 1,000 [facility] with derrell 6-07 mg by ity of hips 11:23: mouth [place] (VITAMIN C) 09 daily. Medica l 1,000 mg Branch tablet cholecalcif Yes 1000U Take 1,000 [facility] edmar, 6-07 Units by ity of vitamin D3, 11:23: mouth [place] (VITAMIN 09 daily. Medical D3) 1,000 Branch unit tablet CRANBERRY Yes Take by [facility] rs FRUIT 6-07 mouth ity of EXTRACT 11:23: daily. [place] ([place] Medical ORAL) Branch CALCIUM Yes Take by [facility] ORAL 6-07 mouth ity of 11:23: daily. [place] [facility] Branch DOCOSAHEXAN Yes 1000mg Take 1,000 [facility] OIC 6-07 mg by ity of ACID/EPA 11:23: mouth [place] (FISH OIL 09 daily. Medical ORAL) Branch BIOTIN ORAL Yes Take by [facility] vers 6-07 mouth. ity of 11:23: [place] [address] Medical Branch FOLIC ACID Yes Take by Univ ers ORAL 6-07 mouth ity of 11:23: daily. [place] [address] Medical Branch MULTIVIT Yes [facility] &MINERALS/F 6-07 mouth. ity of ERROUS FUM 11:23: [place] (MULTI 09 Medical VITAMIN Branch ORAL) METHYLCELLU 0 Yes [facility] (FIBER 6-07 ity of THERAPY 11:23: [facility]) 09 Medical Branch DOCUSATE Yes [facility] SODIUM 6-07 mouth. ity of (COLACE 11:23: [place] ORAL) 09 Medical Branch vitamin C Yes 1000mg Take 1,000 [facility] with derrell 6-07 mg by ity of hips 11:23: mouth [place] (VITAMIN C) 09 daily. Medica l 1,000 mg Branch tablet cholecalcif 0 Yes 1000U Take 1,000 [facility] edmar, 6-07 Units by ity of vitamin D3, 11:23: mouth [place] (VITAMIN 09 daily. Medical D3) 1,000 Branch unit tablet CRANBERRY Yes Take by [facility] rs FRUIT 6-07 mouth ity of EXTRACT 11:23: daily. [place] ([place] Medical ORAL) Branch CALCIUM Yes Take by [facility] ORAL 6-07 mouth ity of 11:23: daily. [place] [facility] Branch DOCOSAHEXAN Yes 1000mg Take 1,000 [facility] OIC 6-07 mg by ity of ACID/EPA 11:23: mouth [place] (FISH OIL 09 daily. Medical ORAL) Branch BIOTIN ORAL Yes Take by [facility] vers 6-07 mouth. ity of 11:23: Medical Branch FOLIC ACID Yes Take by [facility] ers ORAL 6-07 mouth ity of 11:23: daily. [place] [facility] Branch MULTIVIT Yes Take by [facility] s &MINERALS/F 6-07 mouth. ity of ERROUS FUM 11:23: [place] (MULTI 09 Medical VITAMIN Branch ORAL) METHYLCELLU Yes Univer s LOSE (FIBER 6-07 ity of THERAPY 11:23: [place] MISC) 09 Medical Branch DOCUSATE Yes Take by [facility] s SODIUM 6-07 mouth. ity of (COLACE 11:23: [place] ORAL) 09 Medical Branch vitamin C Yes 1000mg Take 1,000 [facility] with derrell 6-07 mg by ity of hips 11:23: mouth [place] (VITAMIN C) 09 daily. Medica l 1,000 mg Branch tablet cholecalcif Yes 1000U Take 1,000 [facility] edmar, 6-07 Units by ity of vitamin D3, 11:23: mouth [place] (VITAMIN 09 daily. Medical D3) 1,000 Branch unit tablet CRANBERRY Yes Take by [facility] rs FRUIT 6-07 mouth ity of EXTRACT 11:23: daily. [place] ([place] Medical ORAL) Branch CALCIUM Yes Take by [facility] ORAL 6-07 mouth ity of 11:23: daily. [place] [facility] Branch DOCOSAHEXAN Yes 1000mg Take 1,000 [facility] OIC 6-07 mg by ity of ACID/EPA 11:23: mouth [place] (FISH OIL 09 daily. Medical ORAL) Branch BIOTIN ORAL Yes Take by [facility] vers 6-07 mouth. ity of 11:23: [place] [facility] Branch FOLIC ACID Yes Take by Univ ers ORAL 6-07 mouth ity of 11:23: daily. [place] [facility] Branch MULTIVIT Yes Take by [facility]iver s &MINERALS/F 6-07 mouth. ity of ERROUS FUM 11:23: [place] (MULTI Medical VITAMIN Branch ORAL) METHYLCELLU 0 Yes Univer s LOSE (FIBER 6-07 ity of THERAPY 11:23: [facility]) 09 Medical Branch DOCUSATE 0 Yes Take by Univer s SODIUM 6-07 mouth. ity of (COLACE 11:23: [place] ORAL) 09 Medical Branch vitamin C Yes 1000mg Take 1,000 [facility] with derrell 6-07 mg by ity of hips 11:23: mouth [place] (VITAMIN C) 09 daily. Medica l 1,000 mg Branch tablet cholecalcif Yes 1000U Take 1,000 [facility] edmar, 6-07 Units by ity of vitamin D3, 11:23: mouth [place] (VITAMIN 09 daily. Medical D3) 1,000 Branch unit tablet CRANBERRY Yes [facility] FRUIT 6-07 mouth ity of EXTRACT 11:23: daily. [place] ([place] Medical ORAL) Branch CALCIUM Yes Take by [facility] ORAL 6-07 mouth ity of 11:23: daily. [place] [facility] Branch DOCOSAHEXAN Yes 1000mg Take 1,000 [facility] OIC 6-07 mg by ity of ACID/EPA 11:23: mouth [place] (FISH OIL 09 daily. Medical ORAL) Branch BIOTIN ORAL Yes Take by Uni vers 6-07 mouth. ity of 11:23: [place] [facility] Branch FOLIC ACID Yes Take by Univ ers ORAL 6-07 mouth ity of 11:23: daily. [place] [facility] Branch MULTIVIT 0 Yes Take by [facility]iver s &MINERALS/F 6-07 mouth. ity of ERROUS FUM 11:23: [place] (MULTI 09 Medical VITAMIN Branch ORAL) METHYLCELLU 0 Yes Univer s LOSE (FIBER 6-07 ity of THERAPY 11:23: [facility]) 09 Medical Branch DOCUSATE 0 Yes [facility]-07 mouth. ity of (COLACE [...] Branch unit tablet CRANBERRY Yes Take by [facility] FRUIT 6-07 mouth ity of EXTRACT 11:23: daily. [place] ([place] Medical ORAL) Branch CALCIUM Yes Take by [facility] ORAL 6-07 mouth ity of 11:23: daily. [place] [facility] Branch DOCOSAHEXAN Yes 1000mg Take 1,000 [facility] OIC 6-07 mg by ity of ACID/EPA 11:23: mouth [place] (FISH OIL 09 daily. Medical ORAL) Branch BIOTIN ORAL Yes Take by [facility] vers 6-07 mouth. ity of 11:23: [place] [facility] FOLIC ACID Yes Take by [facility] ers ORAL 6-07 mouth ity of 11:23: daily. [place] [facility] MULTIVIT Yes Take by [facility] s &MINERALS/F 6-07 mouth. ity of ERROUS FUM 11:23: [place] (MULTI 09 Medical VITAMIN Branch ORAL) METHYLCELLU Yes Univer s LOSE (FIBER 6-07 ity of THERAPY 11:23: [place] MISC) 09 Medical Branch DOCUSATE Yes Take [...] by ity of vitamin D3, 11:23: mouth [place] (VITAMIN 09 daily. Medical D3) 1,000 Branch unit tablet CRANBERRY Yes Take by [facility] rs FRUIT 6-07 mouth ity of EXTRACT 11:23: daily. [place] ([place] Medical ORAL) Branch CALCIUM Yes Take by [facility] ORAL 6-07 mouth ity of 11:23: daily. [place] [facility] Branch DOCOSAHEXAN Yes 1000mg Take 1,000 [facility] OIC 6-07 mg by ity of ACID/EPA 11:23: mouth [place] (FISH OIL 09 daily. Medical ORAL) Branch BIOTIN ORAL Yes Take by [facility] vers 6-07 mouth. ity of 11:23: [place] [facility] Branch FOLIC ACID Yes Take by [facility] ers ORAL 6-07 mouth ity of 11:23: daily. [place] [facility] MULTIVIT Yes Take by [facility] s &MINERALS/F 6-07 mouth. ity of ERROUS FUM 11:23: [place] (MULTI 09 Medical VITAMIN Branch ORAL) METHYLCELLU Yes Univer s LOSE (FIBER 6-07 ity of THERAPY 11:23: [place] MISC) Medical Branch DOCUSATE Yes Take by [facility] s SODIUM 6-07 mouth. ity of (COLACE 11:23: [place] ORAL) 09 Medical Branch vitamin C Yes 1000mg Take 1,000 [facility] with derrell 6-07 mg by ity of hips 11:23: mouth [place] (VITAMIN C) 09 daily. Medica l 1,000 mg Branch tablet cholecalcif Yes 1000U Take 1,000 [facility] edmar, 6-07 Units by ity of vitamin D3, 11:23: mouth [place] (VITAMIN 09 daily. Medical D3) 1,000 Branch unit tablet CRANBERRY Yes [facility]-07 mouth ity of EXTRACT 11:23: daily. [place] ([place] Medical ORAL) Branch CALCIUM Yes Take by [facility] ORAL 6-07 mouth ity of 11:23: daily. [place] [facility] Branch DOCOSAHEXAN Yes 1000mg Take 1,000 [facility] OIC 6-07 mg by ity of ACID/EPA 11:23: mouth [place] (FISH OIL 09 daily. Medical ORAL) Branch BIOTIN ORAL Yes Take by Uni vers 6-07 mouth. ity of 11:23: [place] [facility] Branch FOLIC ACID Yes Take by Univ ers ORAL 6-07 mouth ity of 11:23: daily. [place] [address] Medical Branch MULTIVIT Yes Take by [facility] s &MINERALS/F 6-07 mouth. ity of ERROUS FUM 11:23: [place] (MULTI 09 Medical VITAMIN Branch ORAL) METHYLCELLU [...] by ity of vitamin D3, 11:23: mouth [place] (VITAMIN 09 daily. Medical D3) 1,000 Branch unit tablet CRANBERRY Yes [facility] FRUIT 6-07 mouth ity of EXTRACT 11:23: daily. [place] ([place]Y 09 Medical ORAL) Branch CALCIUM Yes Take by [facility] ORAL 6-07 mouth ity of 11:23: daily. [place] [address] Medical Branch DOCOSAHEXAN Yes 1000mg Take 1,000 [facility] OIC 6-07 mg by ity of ACID/EPA 11:23: mouth [place] (FISH OIL 09 daily. Medical ORAL) Branch BIOTIN ORAL Yes Take by Uni vers 6-07 mouth. ity of 11:23: [place] [address] Medical Branch FOLIC ACID Yes Take by Univ ers ORAL 6-07 mouth ity of 11:23: daily. [place] [address] Medical Branch MULTIVIT Yes Take by [facility]iver s &MINERALS/F 6-07 mouth. ity of ERROUS FUM 11:23: [place] (MULTI 09 Medical VITAMIN Branch ORAL) METHYLCELLU 0 Yes Univer s LOSE (FIBER 6-07 ity of THERAPY 11:23: [facility]) Medical Branch DOCUSATE 0 Yes Take by Univer s SODIUM 6-07 mouth. ity of (COLACE 11:23: [place] ORAL) 09 Medical Branch vitamin C Yes [...] 6-07 mouth ity of EXTRACT 11:23: daily. [place] ([place]ERRY Medical ORAL) Branch CALCIUM 0 Yes Take by [facility] ORAL 6-07 mouth ity of 11:23: daily. [place] [facility] Branch DOCOSAHEXAN Yes 1000mg Take 1,000 [facility] OIC 6-07 mg by ity of ACID/EPA 11:23: mouth [place] (FISH OIL 09 daily. Medical ORAL) Branch BIOTIN ORAL Yes Take by [facility] vers 6-07 mouth. ity of 11:23: Medical Branch FOLIC ACID Yes Take by [facility] ers ORAL 6-07 mouth ity of 11:23: daily. [place] [facility]IVIT [facility] &[facility]-07 mouth. ity of ERROUS FUM 11:23: [place] (MULTI 09 Medical VITAMIN Branch ORAL) METHYLCELLU 0 [facility] ity of THERAPY [...] by ity of vitamin D3, 11:23: mouth [place] (VITAMIN 09 daily. Medical D3) 1,000 Branch unit tablet CRANBERRY 2021-0 Yes Take by [facility] rs FRUIT 6-07 mouth ity of EXTRACT 11:23: daily. [place] ([place] Medical ORAL) Branch CALCIUM Yes Take by [facility] ORAL 6-07 mouth ity of 11:23: daily. [place] [facility] Branch DOCOSAHEXAN Yes 1000mg Take 1,000 [facility] OIC 6-07 mg by ity of ACID/EPA 11:23: mouth [place] (FISH OIL daily. Medical ORAL) Branch BIOTIN ORAL Yes Take by [facility] vers 6-07 mouth. ity of 11:23: Medical Branch FOLIC ACID Yes Take by [facility] ers ORAL 6-07 mouth ity of 11:23: daily. [place] [facility] Branch MULTIVIT Yes Take by [facility]iver s &MINERALS/F 6-07 mouth. ity of ERROUS FUM 11:23: [place] (MULTI 09 Medical VITAMIN Branch ORAL) METHYLCELLU Yes [facility] s LOSE (FIBER 6-07 ity of THERAPY 11:23: [place] MISC) Medical Branch DOCUSATE [facility] mouth. ity of (COLACE 11:23: [place] ORAL) Medical Branch vitamin C Yes 1000mg Take 1,000 [facility] with derrell 6-07 mg by ity of hips 11:23: mouth [place] (VITAMIN C) 09 daily. Medica l 1,000 mg Branch tablet cholecalcif Yes 1000U Take 1,000 [facility] edmar, 6-07 Units by ity of vitamin D3, 11:23: mouth [place] (VITAMIN 09 daily. Medical D3) 1,000 Branch unit tablet CRANBERRY Yes Take by [facility] rs FRUIT 6-07 mouth ity of EXTRACT 11:23: daily. [place] ([place] Medical ORAL) Branch CALCIUM Yes Take by [facility] ORAL 6-07 mouth ity of 11:23: daily. [place] [facility] Branch DOCOSAHEXAN Yes 1000mg Take 1,000 [facility] OIC 6-07 mg by ity of ACID/EPA 11:23: mouth [place] (FISH OIL 09 daily. Medical ORAL) Branch BIOTIN ORAL Yes Take by [facility] vers 6-07 mouth. ity of 11:23: [place] [facility] Branch FOLIC ACID Yes Take by Univ ers ORAL 6-07 mouth ity of 11:23: daily. [place] [facility] MULTIVIT Yes Take by Univer s &MINERALS/F 6-07 mouth. ity of ERROUS FUM 11:23: [place] (MULTI 09 Medical VITAMIN Branch ORAL) METHYLCELLU [...] 6-07 mouth ity of EXTRACT 11:23: daily. [place] (CRANBERRY 09 Medical ORAL) Branch CALCIUM Yes Take by [facility] ORAL 6-07 mouth ity of 11:23: daily. [place] [facility] Branch DOCOSAHEXAN Yes 1000mg Take 1,000 [facility] OIC 6-07 mg by ity of ACID/EPA 11:23: mouth [place] (FISH OIL 09 daily. Medical ORAL) Branch BIOTIN ORAL 0 Yes Take by Uni vers 6-07 mouth. ity of 11:23: [place] [address] Medical Branch FOLIC ACID 0 Yes Take by Univ ers ORAL 6-07 mouth ity of 11:23: daily. [place] [facility] Branch MULTIVIT Yes Take by Univer [...] by ity of vitamin D3, 11:23: mouth [place] (VITAMIN 09 daily. Medical D3) 1,000 Branch unit tablet CRANBERRY [facility] [facility] FRUIT 6-07 mouth ity of EXTRACT 11:23: daily. [place] (CRANBERRY Medical ORAL) Branch CALCIUM Yes Take by [facility] ORAL 6-07 mouth ity of 11:23: daily. [place] [facility] DOCOSAHEXAN Yes 1000mg Take 1,000 [facility] OIC 6-07 mg by ity of ACID/EPA 11:23: mouth [place] (FISH OIL 09 daily. Medical ORAL) Branch BIOTIN ORAL Yes Take by Uni vers 6-07 mouth. ity of 11:23: [place] [address] Medical Branch FOLIC ACID Yes Take by [facility] ers ORAL 6-07 mouth ity of 11:23: daily. [place] [address] Medical Branch MULTIVIT Yes [facility] &MINERALS/F 6-07 mouth. ity of ERROUS FUM 11:23: [place] (MULTI 09 Medical VITAMIN Branch ORAL) METHYLCELLU Yes Univer s LOSE (FIBER 6-07 ity of THERAPY 11:23: [place] MISC) Medical Branch DOCUSATE Yes [facility] SODIUM 6-07 mouth. ity of (COLACE 11:23: [place] ORAL) 09 Medical Branch vitamin C Yes 1000mg Take 1,000 [facility] with derrell 6-07 mg by ity of hips 11:23: mouth [place] (VITAMIN C) 09 daily. Medica l 1,000 mg Branch tablet cholecalcif Yes 1000U Take 1,000 [facility] edmar, 6-07 Units by ity of vitamin D3, 11:23: mouth [place] (VITAMIN 09 daily. Medical D3) 1,000 Branch unit tablet CRANBERRY Yes Take by [facility] FRUIT 6-07 mouth ity of EXTRACT 11:23: daily. [place] (CRANBERRY 09 Medical ORAL) Branch CALCIUM Yes Take by [facility] ORAL 6-07 mouth ity of 11:23: daily. [place] [facility] DOCOSAHEXAN Yes 1000mg Take 1,000 [facility] OIC 6-07 mg by ity of ACID/EPA 11:23: mouth [place] (FISH OIL 09 daily. Medical ORAL) Branch BIOTIN ORAL Yes Take by Uni vers 6-07 mouth. ity of 11:23: Medical Branch FOLIC ACID Yes Take by [facility] ers ORAL 6-07 mouth ity of 11:23: daily. [place] [facility] MULTIVIT Yes Take by Univer s &MINERALS/F 6-07 mouth. ity of ERROUS FUM 11:23: [place] (MULTI 09 Medical VITAMIN Branch ORAL) METHYLCELLU 0 Yes Univer s LOSE (FIBER 6-07 ity of THERAPY 11:23: [place] MISC) 09 Medical Branch DOCUSATE Yes Take by Univer s SODIUM 6-07 mouth. ity of (COLACE 11:23: [place] ORAL) 09 Medical Branch vitamin C Yes 1000mg Take 1,000 [facility] with derrell 6-07 mg by ity of hips 11:23: mouth [place] (VITAMIN C) 09 daily. Medica l 1,000 mg Branch tablet cholecalcif Yes 1000U Take 1,000 [facility] edmar, 6-07 Units by ity of vitamin D3, 11:23: mouth [place] (VITAMIN 09 daily. Medical D3) 1,000 Branch unit tablet CRANBERRY Yes Take by [facility] rs FRUIT 6-07 mouth ity of EXTRACT 11:23: daily. [place] (CRANBERRY 09 Medical ORAL) Branch CALCIUM Yes Take by [facility] ORAL 6-07 mouth ity of 11:23: daily. [place] [facility] DOCOSAHEXAN Yes 1000mg Take 1,000 [facility] OIC 6-07 mg by ity of ACID/EPA 11:23: mouth [place] (FISH OIL 09 daily. Medical ORAL) Branch BIOTIN ORAL Yes Take by Uni vers 6-07 mouth. ity of 11:23: Medical Branch FOLIC ACID Yes Take by Univ ers ORAL 6-07 mouth ity of 11:23: daily. [place] [facility] MULTIVIT Yes Take by Univer s &MINERALS/F 6-07 mouth. ity of ERROUS FUM 11:23: [place] (MULTI 09 Medical VITAMIN Branch ORAL) METHYLCELLU 0 Yes Univer s LOSE (FIBER 6-07 ity of THERAPY 11:23: [facility]) 09 Medical Branch DOCUSATE Yes [facility] SODIUM 6-07 mouth. ity of (COLACE 11:23: [place] ORAL) 09 Medical Branch vitamin C Yes 1000mg Take 1,000 [facility] with derrell 6-07 mg by ity of hips 11:23: mouth [place] (VITAMIN C) 09 daily. Medica l 1,000 mg Branch tablet cholecalcif 0 Yes 1000U Take 1,000 [facility] edmar, 6-07 Units by ity of vitamin D3, 11:23: mouth [place] (VITAMIN 09 daily. Medical D3) 1,000 Branch unit tablet CRANBERRY Yes Take by [facility] rs FRUIT 6-07 mouth ity of EXTRACT 11:23: daily. [place] (CRANBERRY 09 Medical ORAL) Branch CALCIUM Yes Take by [facility] ORAL 6-07 mouth ity of 11:23: daily. [place] [facility] DOCOSAHEXAN Yes 1000mg Take 1,000 [facility] OIC 6-07 mg by ity of ACID/EPA 11:23: mouth [place] (FISH OIL 09 daily. Medical ORAL) Branch BIOTIN ORAL Yes Take by Uni vers 6-07 mouth. ity of 11:23: [place] [address] Medical Branch FOLIC ACID Yes Take by Univ ers ORAL 6-07 mouth ity of 11:23: daily. [place] [address] Medical Branch MULTIVIT Yes [facility] by [facility] &MINERALS/F 6-07 mouth. ity of ERROUS FUM 11:23: [place] (MULTI 09 Medical VITAMIN Branch ORAL) METHYLCELLU 0 Yes [facility] LOSE (FIBER 6-07 ity of THERAPY 11:23: [facility]) 09 Medical Branch DOCUSATE 0 Yes Take by [facility] SODIUM 6-07 mouth. ity of (COLACE 11:23: [place] ORAL) 09 Medical Branch vitamin C Yes 1000mg Take 1,000 [facility] with derrell 6-07 mg by ity of hips 11:23: mouth [place] (VITAMIN C) 09 daily. Medica l 1,000 mg Branch tablet cholecalcif 0 Yes 1000U Take 1,000 [facility] edmar, 6-07 Units by ity of vitamin D3, 11:23: mouth [place] (VITAMIN 09 daily. Medical D3) 1,000 Branch unit tablet CRANBERRY Yes Take by [facility]ive rs FRUIT 6-07 mouth ity of EXTRACT 11:23: daily. [place] (CRANBERRY Medical ORAL) Branch CALCIUM Yes Take by [facility] ORAL 6-07 mouth ity of 11:23: daily. [place] [facility] DOCOSAHEXAN Yes 1000mg Take 1,000 [facility] OIC 6-07 mg by ity of ACID/EPA 11:23: mouth [place] (FISH OIL 09 daily. Medical ORAL) Branch BIOTIN ORAL Yes Take by Uni vers 6-07 mouth. ity of 11:23: [place] [facility] FOLIC ACID Yes Take by Univ ers ORAL 6-07 mouth ity of 11:23: daily. [place] [facility] MULTIVIT Yes Take by Univer s &MINERALS/F 6-07 mouth. ity of ERROUS FUM 11:23: [place] (MULTI 09 Medical VITAMIN Branch ORAL) METHYLCELLU Yes Univer s LOSE (FIBER 6-07 ity of THERAPY 11:23: [place] MISC) Medical Branch DOCUSATE Yes Take by Univer s SODIUM 6-07 mouth. ity of (COLACE 11:23: [place] ORAL) Medical Branch vitamin C Yes 1000mg Take 1,000 [facility] with derrell 6-07 mg by ity of hips 11:23: mouth [place] (VITAMIN C) 09 daily. Medica l 1,000 mg Branch tablet cholecalcif Yes 1000U Take 1,000 [facility] edmar, 6-07 Units by ity of vitamin D3, 11:23: mouth [place] (VITAMIN 09 daily. Medical D3) 1,000 Branch unit tablet CRANBERRY Yes Take by [facility] rs FRUIT 6-07 mouth ity of EXTRACT 11:23: daily. [place] ([place] Medical ORAL) Branch CALCIUM Yes Take by [facility] ORAL 6-07 mouth ity of 11:23: daily. [place] [facility] DOCOSAHEXAN Yes 1000mg Take 1,000 [facility] OIC 6-07 mg by ity of ACID/EPA 11:23: mouth [place] (FISH OIL 09 daily. Medical ORAL) Branch BIOTIN ORAL Yes Take by [facility] vers 6-07 mouth. ity of 11:23: [place] [facility] FOLIC ACID Yes Take by Univ ers ORAL 6-07 mouth ity of 11:23: daily. [place] [facility] MULTIVIT Yes Take by Univer s &MINERALS/F 6-07 mouth. ity of ERROUS FUM 11:23: [place] (MULTI 09 Medical VITAMIN Branch ORAL) METHYLCELLU 0 Yes Univer s LOSE (FIBER 6-07 ity of THERAPY 11:23: [facility]) 09 Medical Branch DOCUSATE 0 Yes [facility] SODIUM 6-07 mouth. ity of (COLACE 11:23: [place] ORAL) 09 Medical Branch vitamin C Yes 1000mg Take 1,000 [facility] with derrell 6-07 mg by ity of hips 11:23: mouth [place] (VITAMIN C) 09 daily. Medica l 1,000 mg Branch tablet cholecalcif Yes 1000U Take 1,000 [facility] edmar, 6-07 Units by ity of vitamin D3, 11:23: mouth [place] (VITAMIN 09 daily. Medical D3) 1,000 Branch unit tablet CRANBERRY Yes Take by [facility] FRUIT 6-07 mouth ity of EXTRACT 11:23: daily. [place] (CRAN[place]ERRY Medical ORAL) Branch CALCIUM Yes Take by [facility] ORAL 6-07 mouth ity of 11:23: daily. [place] [facility] DOCOSAHEXAN Yes 1000mg Take 1,000 [facility] OIC 6-07 mg by ity of ACID/EPA 11:23: mouth [place] (FISH OIL 09 daily. Medical ORAL) Branch BIOTIN ORAL Yes Take by Uni vers 6-07 mouth. ity of 11:23: [place] [facility] FOLIC ACID Yes Take by Univ ers ORAL 6-07 mouth ity of 11:23: daily. [place] [facility] MULTIVIT 0 Yes Take by Univer s &MINERALS/F 6-07 mouth. ity of ERROUS FUM 11:23: [place] (MULTI 09 Medical VITAMIN Branch ORAL) METHYLCELLU 0 Yes Univer s LOSE (FIBER 6-07 ity of THERAPY 11:23: [facility]) 09 Medical Branch DOCUSATE 0 Yes [facility] by [facility] SODIUM 6-07 mouth. ity of (COLACE [...] Branch unit tablet CRANBERRY Yes Take by [facility] FRUIT 6-07 mouth ity of EXTRACT 11:23: daily. [place] (CRAN[place] Medical ORAL) Branch CALCIUM Yes Take by [facility] ORAL 6-07 mouth ity of 11:23: daily. [place] [facility] DOCOSAHEXAN Yes 1000mg Take 1,000 [facility] OIC 6-07 mg by ity of ACID/EPA 11:23: mouth [place] (FISH OIL 09 daily. Medical ORAL) Branch BIOTIN ORAL Yes Take by Uni vers 6-07 mouth. ity of 11:23: Medical Branch FOLIC ACID Yes Take by Univ ers ORAL 6-07 mouth ity of 11:23: daily. [place] [facility] MULTIVIT Yes Take by [facility] &MINERALS/F 6-07 mouth. ity of ERROUS FUM 11:23: [place] (MULTI 09 Medical VITAMIN Branch ORAL) METHYLCELLU Yes Univer s LOSE (FIBER 6-07 ity of THERAPY 11:23: [place] MISC) 09 Medical Branch DOCUSATE Yes Take by [facility] SODIUM 6-07 mouth. ity of (COLACE [...] Branch unit tablet CRANBERRY Yes Take by [facility] FRUIT 6-07 mouth ity of EXTRACT 11:23: daily. [place] ([place] Medical ORAL) Branch CALCIUM Yes Take by [facility] ORAL 6-07 mouth ity of 11:23: daily. [place] [facility] DOCOSAHEXAN Yes 1000mg Take 1,000 [facility] OIC 6-07 mg by ity of ACID/EPA 11:23: mouth [place] (FISH OIL 09 daily. Medical ORAL) Branch BIOTIN ORAL Yes Take by [facility] vers 6-07 mouth. ity of 11:23: [place] [facility] FOLIC ACID Yes Take by Univ ers ORAL 6- mouth ity of 11:23: daily. [place] [facility] MULTIVIT Yes Take by Univer s &MINERALS/F 6-07 mouth. ity of ERROUS FUM 11:23: [place] (MULTI 09 Medical VITAMIN Branch ORAL) METHYLCELLU Yes Univer s LOSE (FIBER 6-07 ity of THERAPY 11:23: [place] MIS) Medical Branch DOCUSATE Yes Take by Univer s SODIUM 6-07 mouth. ity of (COLACE 11:23: [place] ORAL) 09 Medical Branch vitamin C Yes 1000mg Take 1,000 [facility] with derrell 6-07 mg by ity of hips 11:23: mouth [place] (VITAMIN C) 09 daily. Medica l 1,000 mg Branch tablet cholecalcif Yes 1000U Take 1,000 [facility] edmra, 6-07 Units by ity of vitamin D3, 11:23: mouth [place] (VITAMIN 09 daily. Medical D3) 1,000 Branch unit tablet CRANBERRY Yes Take by [facility] rs FRUIT 6-07 mouth ity of EXTRACT 11:23: daily. [place] (CRANBERRY Medical ORAL) Branch CALCIUM Yes Take by [facility] ORAL 6-07 mouth ity of 11:23: daily. [place] [facility] DOCOSAHEXAN Yes 1000mg Take 1,000 [facility] OIC 6-07 mg by ity of ACID/EPA 11:23: mouth [place] (FISH OIL 09 daily. Medical ORAL) Branch BIOTIN ORAL Yes Take by Uni vers 6-07 mouth. ity of 11:23: [place] [facility] FOLIC ACID Yes Take by Univ ers ORAL 6- mouth ity of 11:58: daily. [address] Branch MULTIVIT Yes Take by [facility] s &MINERALS/F 6- mouth. ity of ERROUS FUM 11:58: [place] (MULTI 16 Medical VITAMIN Branch ORAL) METHYLCELLU Yes [facility] s LOSE (FIBER 6- ity of THERAPY 11:58: [place] MISC) Medical Branch DOCUSATE Yes Take by [facility] SODIUM 6- mouth. ity of (COLACE 11:58: [place] ORAL) Medical Branch vitamin C Yes 1000mg Take 1,000 [facility] with derrell 6-01 mg by ity of hips 11:58: mouth [place] (VITAMIN C) 16 daily. Medica l 1,000 mg Branch tablet cholecalcif Yes 1000U Take 1,000 [facility] edmar, 6- Units by ity of vitamin D3, 11:58: mouth [place] (VITAMIN 16 daily. Medical D3) 1,000 Branch unit tablet CRANBERRY Yes Take by [facility] rs FRUIT 6 mouth ity of EXTRACT 11:58: daily. [place] (CRANBERRY 16 Medical ORAL) Branch CALCIUM Yes Take by Univers ORAL 6- mouth ity of 11:58: daily. [address] Branch DOCOSAHEXAN Yes 1000mg Take 1,000 [facility] OIC 6-01 mg by ity of ACID/EPA 11:58: mouth [place] (FISH OIL 16 daily. Medical ORAL) Branch BIOTIN ORAL Yes Take by Uni vers 6- mouth. ity of 11:58: [address] metformin Yes [id number] 500mg Take 1 U nivers ER 500 mg 5-31 tablet by ity o f 24 hr 00:00: mouth [place] tablet 00 daily with Medical breakfast. Branch STOP REGULAR METFORMIN. metformin Yes [id number] 500mg Take 1 U nivers ER 500 mg 5-31 tablet by ity o f 24 hr 00:00: mouth [place] tablet 00 daily with Medical breakfast. Branch STOP REGULAR METFORMIN. metformin Yes [id number] 500mg Take 1 U nivers ER 500 mg 5-31 tablet by ity o f 24 hr 00:00: mouth [place] tablet 00 daily with Medical breakfast. Branch STOP REGULAR METFORMIN. metformin 2022-0 Yes [id number] 500mg Take 1 U nivers ER 500 mg 5-31 tablet by ity o f 24 hr 00:00: mouth [place] tablet 00 daily with Medical breakfast. Branch STOP REGULAR METFORMIN. metformin 2021-0 Yes [id number] 500mg Take 1 U nivers ER 500 mg 5-31 tablet by ity o f 24 hr 00:00: mouth [place] tablet 00 daily with Medical breakfast. Branch STOP REGULAR METFORMIN. metformin 2021-0 Yes [id number] 500mg Take 1 U nivers ER 500 mg 5-31 tablet by ity o f 24 hr 00:00: mouth [place] tablet 00 daily with Medical breakfast. Branch STOP REGULAR METFORMIN. metformin 2021-0 Yes [id number] 500mg Take 1 U nivers ER 500 mg 5-31 tablet by ity o f 24 hr 00:00: mouth [place] tablet 00 daily with Medical breakfast. Branch STOP REGULAR METFORMIN. metformin 2021-0 Yes [id number] 500mg Take 1 U nivers ER 500 mg 5-31 tablet by ity o f 24 hr 00:00: mouth [place] tablet 00 daily with Medical breakfast. Branch STOP REGULAR METFORMIN. metformin 2021-0 Yes [id number] 500mg Take 1 U nivers ER 500 mg 5-31 tablet by ity o f 24 hr 00:00: mouth [place] tablet 00 daily with Medical breakfast. Branch STOP REGULAR METFORMIN. metformin 2021-0 Yes [id number] 500mg Take 1 U nivers ER 500 mg 5-31 tablet by ity o f 24 hr 00:00: mouth [place] tablet 00 daily with Medical breakfast. Branch STOP REGULAR METFORMIN. metformin 2021-0 Yes [id number] 500mg Take 1 U nivers ER 500 mg 5-31 tablet by ity o f 24 hr 00:00: mouth [place] tablet 00 daily with Medical breakfast. Branch STOP REGULAR METFORMIN. metformin 2021-0 Yes [id number] 500mg Take 1 U nivers ER 500 mg 5-31 tablet by ity o f 24 hr 00:00: mouth [place] tablet 00 daily with Medical breakfast. Branch STOP REGULAR METFORMIN. metformin 2021-0 Yes [id number] 500mg Take 1 U nivers ER 500 mg 5-31 tablet by ity o f 24 hr 00:00: mouth [place] tablet 00 daily with Medical breakfast. Branch STOP REGULAR METFORMIN. metformin 2021-0 Yes [id number] 500mg Take 1 U nivers ER 500 mg 5-31 tablet by ity o f 24 hr 00:00: mouth [place] tablet 00 daily with Medical breakfast. Branch STOP REGULAR METFORMIN. metformin 2021-0 Yes [id number] 500mg Take 1 U nivers ER 500 mg 5-31 tablet by ity o f 24 hr 00:00: mouth [place] tablet 00 daily with Medical breakfast. Branch STOP REGULAR METFORMIN. metformin 2021-0 Yes [id number] 500mg Take 1 U nivers ER 500 mg 5-31 tablet by ity o f 24 hr 00:00: mouth [place] tablet 00 daily with Medical breakfast. Branch STOP REGULAR METFORMIN. metformin 2021-0 Yes [id number] 500mg Take 1 U nivers ER 500 mg 5-31 tablet by ity o f 24 hr 00:00: mouth [place] tablet 00 daily with Medical breakfast. Branch STOP REGULAR METFORMIN. metformin 2021-0 Yes [id number] 500mg Take 1 U nivers ER 500 mg 5-31 tablet by ity o f 24 hr 00:00: mouth [place] tablet 00 daily with Medical breakfast. Branch STOP REGULAR METFORMIN. metformin 2021-0 Yes [id number] 500mg Take 1 U nivers ER 500 mg 5-31 tablet by ity o f 24 hr 00:00: mouth [place] tablet 00 daily with Medical breakfast. Branch STOP REGULAR METFORMIN. metformin 2021-0 Yes [id number] 500mg Take 1 U nivers ER 500 mg 5-31 tablet by ity o f 24 hr 00:00: mouth [place] tablet 00 daily with Medical breakfast. Branch STOP REGULAR METFORMIN. metformin 2021-0 Yes [id number] 500mg Take 1 U nivers ER 500 mg 5-31 tablet by ity o f 24 hr 00:00: mouth [place] tablet 00 daily with Medical breakfast. Branch STOP REGULAR METFORMIN. metformin 2021-0 Yes [id number] 500mg Take 1 U nivers ER 500 mg 5-31 tablet by ity o f 24 hr 00:00: mouth [place] tablet 00 daily with Medical breakfast. Branch STOP REGULAR METFORMIN. metformin 2021-0 Yes [id number] 500mg Take 1 U nivers ER 500 mg 5-31 tablet by ity o f 24 hr 00:00: mouth [place] tablet 00 daily with Medical breakfast. Branch STOP REGULAR METFORMIN. metformin 2021-0 Yes [id number] 500mg Take 1 U nivers ER 500 mg 5-31 tablet by ity o f 24 hr 00:00: mouth [place] tablet 00 daily with Medical breakfast. Branch STOP REGULAR METFORMIN. metformin 2021-0 Yes [id number] 500mg Take 1 U nivers ER 500 mg 5-31 tablet by ity o f 24 hr 00:00: mouth [place] tablet 00 daily with Medical breakfast. Branch STOP REGULAR METFORMIN. metformin 2021-0 Yes [id number] 500mg Take 1 U nivers ER 500 mg 5-31 tablet by ity o f 24 hr 00:00: mouth [place] tablet 00 daily with Medical breakfast. Branch STOP REGULAR METFORMIN. metformin 2021-0 Yes [id number] 500mg Take 1 U nivers ER 500 mg 5-31 tablet by ity o f 24 hr 00:00: mouth [place] tablet 00 daily with Medical breakfast. Branch STOP REGULAR METFORMIN. metformin 2021-0 Yes [id number] 500mg Take 1 U nivers ER 500 mg 5-31 tablet by ity o f 24 hr 00:00: mouth [place] tablet 00 daily with Medical breakfast. Branch STOP REGULAR METFORMIN. metformin 2021-0 Yes [id number] 500mg Take 1 U nivers ER 500 mg 5-31 tablet by ity o f 24 hr 00:00: mouth [place] tablet 00 daily with Medical breakfast. Branch STOP REGULAR METFORMIN. metformin 2021-0 Yes [id number] 500mg Take 1 U nivers ER 500 mg 5-31 tablet by ity o f 24 hr 00:00: mouth [place] tablet 00 daily with Medical breakfast. Branch STOP REGULAR METFORMIN. metformin 2021-0 Yes [id number] 500mg Take 1 U nivers ER 500 mg 5-31 tablet by ity o f 24 hr 00:00: mouth [place] tablet 00 daily with Medical breakfast. Branch STOP REGULAR METFORMIN. metformin 2021-0 Yes [id number] 500mg Take 1 U [facility]ivers ER 500 mg 5-31 tablet by ity o f 24 hr 00:00: mouth [place] tablet 00 daily with Medical breakfast. Branch STOP REGULAR METFORMIN. metformin 2021-0 Yes [id number] 500mg Take 1 U nivers ER 500 mg 5-31 tablet by ity o f 24 hr 00:00: mouth [place] tablet 00 daily with Medical breakfast. Branch STOP REGULAR METFORMIN. metformin 2021-0 Yes [id number] 500mg Take 1 U nivers ER 500 mg 5-31 tablet by ity o f 24 hr 00:00: mouth [place] tablet 00 daily with Medical breakfast. Branch STOP REGULAR METFORMIN. metformin 2021-0 Yes [id number] 500mg Take 1 U nivers ER 500 mg 5-31 tablet by ity o f 24 hr 00:00: mouth [place] tablet 00 daily with Medical breakfast. Branch STOP REGULAR METFORMIN. metformin 2021-0 Yes [id number] 500mg Take 1 U nivers ER 500 mg 5-31 tablet by ity o f 24 hr 00:00: mouth [place] tablet 00 daily with Medical breakfast. Branch STOP REGULAR METFORMIN. metformin 2021-0 Yes [id number] 500mg Take 1 U nivers ER 500 mg 5-31 tablet by ity o f 24 hr 00:00: mouth [place] tablet 00 daily with Medical breakfast. Branch STOP REGULAR METFORMIN. metformin 2021-0 Yes [id number] 500mg Take 1 U nivers ER 500 mg 5-31 tablet by ity o f 24 hr 00:00: mouth [place] tablet 00 daily with Medical breakfast. Branch STOP REGULAR METFORMIN. metformin 2021-0 Yes [id number] 500mg Take 1 U nivers ER 500 mg 5-31 tablet by ity o f 24 hr 00:00: mouth [place] tablet 00 daily with Medical breakfast. Branch STOP REGULAR METFORMIN. metformin 2021-0 Yes [id number] 500mg Take 1 U nivers ER 500 mg 5-31 tablet by ity o f 24 hr 00:00: mouth [place] tablet 00 daily with Medical breakfast. Branch STOP REGULAR METFORMIN. metformin 2021-0 Yes [id number] 500mg Take 1 U nivers ER 500 mg 5-31 tablet by ity o f 24 hr 00:00: mouth [place] tablet 00 daily with Medical breakfast. Branch STOP REGULAR METFORMIN. metformin 2021-0 Yes [id number] 500mg Take 1 U nivers ER 500 mg 5-31 tablet by ity o f 24 hr 00:00: mouth [place] tablet 00 daily with Medical breakfast. Branch STOP REGULAR METFORMIN. metformin 2021-0 Yes [id number] 500mg Take 1 U nivers ER 500 mg 5-31 tablet by ity o f 24 hr 00:00: mouth [place] tablet 00 daily with Medical breakfast. Branch STOP REGULAR METFORMIN. metformin 2021-0 Yes [id number] 500mg Take 1 U nivers ER 500 mg 5-31 tablet by ity o f 24 hr 00:00: mouth [place] tablet 00 daily with Medical breakfast. Branch STOP REGULAR METFORMIN. metformin Yes [id number] 500mg Take 1 U nivers ER 500 mg 5-31 tablet by ity o f 24 hr 00:00: mouth [place] tablet 00 daily with Medical breakfast. Branch STOP REGULAR METFORMIN. metformin Yes [id number] 500mg Take 1 U nivers ER 500 mg 5-31 tablet by ity o f 24 hr 00:00: mouth [place] tablet 00 daily with Medical breakfast. Branch STOP REGULAR METFORMIN. metformin Yes [id number] 500mg Take 1 U nivers ER 500 mg 5-31 tablet by ity o f 24 hr 00:00: mouth [place] tablet 00 daily with Medical breakfast. Branch STOP REGULAR METFORMIN. metformin Yes [id number] 500mg Take 1 U nivers ER 500 mg 5-31 tablet by ity o f 24 hr 00:00: mouth [place] tablet 00 daily with Medical breakfast. Branch STOP REGULAR METFORMIN. metformin 2021- No [id number] 500mg Take 1 [facility] ER 500 mg 5-31 10-13 tablet by ity of 24 hr 00:00: 00:00 mouth [place] tablet 00 :00 daily with Medical breakfast. Branch STOP REGULAR METFORMIN. metformin 2021- No [id number] 500mg Take 1 [facility] ER 500 mg 5-31 10-13 tablet by ity of 24 hr 00:00: 00:00 mouth [place] tablet 00 :00 daily with Medical breakfast. Branch STOP REGULAR METFORMIN. metformin 2021- No [id number] 500mg Take 1 [facility] ER 500 mg 5-31 10-13 tablet by ity of 24 hr 00:00: 00:00 mouth [place] tablet 00 :00 daily with Medical breakfast. Branch STOP REGULAR METFORMIN. metformin 2021- No [id number] 500mg Take 1 [facility] ER 500 mg 5-31 10-13 tablet by ity of 24 hr 00:00: 00:00 mouth [place] tablet 00 :00 daily with Medical breakfast. Branch STOP REGULAR METFORMIN. ibuprofen 2021-0 Yes [id number] 600mg Take 1 [facility] 600 mg 5-19 [id number] tablet by ity of tablet 00:00: mouth [place] 00 every 6 Medical (six) Branch hours as needed for Pain (scale 4-6). ibuprofen 2021-0 Yes [id number] 600mg Take 1 [facility] 600 mg 5-19 [id number] tablet by ity of tablet 00:00: mouth [place] 00 every 6 Medical (six) Branch hours as needed for Pain (scale 4-6). ibuprofen 2022-0 Yes [id number] 600mg Take 1 [facility] 600 mg 5-19 [id number] tablet by ity of tablet 00:00: mouth [place] 00 every 6 Medical (six) Branch hours as needed for Pain (scale 4-6). ibuprofen 2022-0 Yes [id number] 600mg Take 1 [facility] 600 mg 5-19 [id number] tablet by ity of tablet 00:00: mouth [place] 00 every 6 Medical (six) Branch hours as needed for Pain (scale 4-6). ibuprofen 2022-0 Yes [id number] 600mg Take 1 [facility] 600 mg 5-19 [id number] tablet by ity of tablet 00:00: mouth [place] 00 every 6 Medical (six) Branch hours as needed for Pain (scale 4-6). ibuprofen 2022-0 Yes [id number] 600mg Take 1 [facility] 600 mg 5-19 [id number] tablet by ity of tablet 00:00: mouth [place] 00 every 6 Medical (six) Branch hours as needed for Pain (scale 4-6). ibuprofen 2022-0 Yes [id number] 600mg Take 1 [facility] 600 mg 5-19 [id number] tablet by ity of tablet 00:00: mouth [place] 00 every 6 Medical (six) Branch hours as needed for Pain (scale 4-6). ibuprofen 2022-0 Yes [id number] 600mg Take 1 [facility] 600 mg 5-19 [id number] tablet by ity of tablet 00:00: mouth [place] 00 every 6 Medical (six) Branch hours as needed for Pain (scale 4-6). ibuprofen 2022-0 Yes [id number] 600mg Take 1 [facility] 600 mg 5-19 [id number] tablet by ity of tablet 00:00: mouth [place] 00 every 6 Medical (six) Branch hours as needed for Pain (scale 4-6). ibuprofen 2022-0 Yes [id number] 600mg Take 1 [facility] 600 mg 5-19 [id number] tablet by ity of tablet 00:00: mouth [place] 00 every 6 Medical (six) Branch hours as needed for Pain (scale 4-6). ibuprofen 2022-0 Yes [id number] 600mg Take 1 [facility] 600 mg 5-19 [id number] tablet by ity of tablet 00:00: mouth [place] 00 every 6 Medical (six) Branch hours as needed for Pain (scale 4-6). ibuprofen 2022-0 Yes [id number] 600mg Take 1 [facility] 600 mg 5-19 [id number] tablet by ity of tablet 00:00: mouth [place] 00 every 6 Medical (six) Branch hours as needed for Pain (scale 4-6). ibuprofen 2022-0 Yes [id number] 600mg Take 1 [facility] 600 mg 5-19 [id number] tablet by ity of tablet 00:00: mouth [place] 00 every 6 Medical (six) Branch hours as needed for Pain (scale 4-6). ibuprofen 2022-0 Yes [id number] 600mg Take 1 [facility] 600 mg 5-19 [id number] tablet by ity of tablet 00:00: mouth [place] 00 every 6 Medical (six) Branch hours as needed for Pain (scale 4-6). ibuprofen 2022-0 Yes [id number] 600mg Take 1 [facility] 600 mg 5-19 [id number] tablet by ity of tablet 00:00: mouth [place] 00 every 6 Medical (six) Branch hours as needed for Pain (scale 4-6). ibuprofen 2022-0 Yes [id number] 600mg Take 1 [facility] 600 mg 5-19 [id number] tablet by [facility] tablet 00:00: mouth [place] 00 every 6 Medical (six) Branch hours as needed for Pain (scale 4-6). ibuprofen 2022-0 Yes [id number] 600mg Take 1 [facility] 600 mg 5-19 [id number] tablet by [facility] tablet 00:00: mouth [place] 00 every 6 Medical (six) Branch hours as needed for Pain (scale 4-6). ibuprofen 2022-0 Yes [id number] 600mg Take 1 [facility] 600 mg 5-19 [id number] tablet by [facility] tablet 00:00: mouth [place] 00 every 6 Medical (six) Branch hours as needed for Pain (scale 4-6). ibuprofen 2022-0 Yes [id number] 600mg Take 1 [facility] 600 mg 5-19 [id number] tablet by [facility] tablet 00:00: mouth [place] 00 every 6 Medical (six) Branch hours as needed for Pain (scale 4-6). ibuprofen 2022-0 Yes [id number] 600mg Take 1 [facility] 600 mg 5-19 [id number] tablet by [facility] tablet 00:00: mouth [place] 00 every 6 Medical (six) Branch hours as needed for Pain (scale 4-6). ibuprofen 2022-0 Yes [id number] 600mg Take 1 [facility] 600 mg 5-19 [id number] tablet by [facility] tablet 00:00: mouth [place] 00 every 6 Medical (six) Branch hours as needed for Pain (scale 4-6). ibuprofen 2022-0 Yes [id number] 600mg Take 1 [facility] 600 mg 5-19 [id number] tablet by [facility] tablet 00:00: mouth [place] 00 every 6 Medical (six) Branch hours as needed for Pain (scale 4-6). ibuprofen 2022-0 Yes [id number] 600mg Take 1 [facility] 600 mg 5-19 [id number] tablet by [facility] tablet 00:00: mouth [place] 00 every 6 Medical (six) Branch hours as needed for Pain (scale 4-6). ibuprofen 2022-0 Yes [id number] 600mg Take 1 [facility] 600 mg 5-19 [id number] tablet by [facility] tablet 00:00: mouth [place] 00 every 6 Medical (six) Branch hours as needed for Pain (scale 4-6). ibuprofen 2022-0 Yes [id number] 600mg Take 1 [facility] 600 mg 5-19 [id number] tablet by [facility] tablet 00:00: mouth [place] 00 every 6 Medical (six) Branch hours as needed for Pain (scale 4-6). ibuprofen 2022-0 Yes [id number] 600mg Take 1 [facility] 600 mg 5-19 [id number] tablet by [facility] tablet 00:00: mouth [place] 00 every 6 Medical (six) Branch hours as needed for Pain (scale 4-6). ibuprofen 2022-0 Yes [id number] 600mg Take 1 [facility] 600 mg 5-19 [id number] tablet by [facility] tablet 00:00: mouth [place] 00 every 6 Medical (six) Branch hours as needed for Pain (scale 4-6). ibuprofen 2022-0 Yes [id number] 600mg Take 1 [facility] 600 mg 5-19 [id number] tablet by [facility] tablet 00:00: mouth [place] 00 every 6 Medical (six) Branch hours as needed for Pain (scale 4-6). ibuprofen 2022-0 Yes [id number] 600mg Take 1 [facility] 600 mg 5-19 [id number] tablet by [facility] tablet 00:00: mouth [place] 00 every 6 Medical (six) Branch hours as needed for Pain (scale 4-6). ibuprofen 2022-0 Yes [id number] 600mg Take 1 [facility] 600 mg 5-19 [id number] tablet by [facility] tablet 00:00: mouth [place] 00 every 6 Medical (six) Branch hours as needed for Pain (scale 4-6). ibuprofen 2-0 Yes [id number] 600mg Take 1 [facility] 600 mg 5-19 [id number] tablet by [facility] tablet 00:00: mouth [place] 00 every 6 Medical (six) Branch hours as needed for Pain (scale 4-6). ibuprofen 2-0 Yes [id number] 600mg Take 1 [facility] 600 mg 5-19 [id number] tablet by [facility] tablet 00:00: mouth [place] 00 every 6 Medical (six) Branch hours as needed for Pain (scale 4-6). ibuprofen 2-0 Yes [id number] 600mg Take 1 [facility] 600 mg 5-19 [id number] tablet by [facility] tablet 00:00: mouth [place] 00 every 6 Medical (six) Branch hours as needed for Pain (scale 4-6). ibuprofen 2021-0 Yes [id number] 600mg Take 1 [facility] 600 mg 5-19 [id number] tablet by [facility] tablet 00:00: mouth [place] 00 every 6 Medical (six) Branch hours as needed for Pain (scale 4-6). ibuprofen 2021-0 Yes [id number] 600mg Take 1 [facility] 600 mg 5-19 [id number] tablet by [facility] tablet 00:00: mouth [place] 00 every 6 Medical (six) Branch hours as needed for Pain (scale 4-6). ibuprofen 2-0 Yes [id number] 600mg Take 1 [facility] 600 mg 5-19 [id number] tablet by [facility] tablet 00:00: mouth [place] 00 every 6 Medical (six) Branch hours as needed for Pain (scale 4-6). ibuprofen 2022-0 2022- No [id number] 600mg Take 1 [facility] 600 mg 5-19 - [id number] tablet by [facility] o f tablet 00:00: 00:00 mouth [place] 00 :00 every 6 Medical (six) Branch hours as needed for Pain (scale 4-6). ibuprofen 2022-0 2022- No [id number] 600mg Take 1 [facility] 600 mg 5-19 - [id number] tablet by [facility] f tablet 00:00: 00:00 mouth [place] 00 :00 every 6 Medical (six) Branch hours as needed for Pain (scale 4-6). ibuprofen 2- No [id number] 600mg Take 1 [facility] 600 mg 02-11 [id number] tablet by [facility] f tablet 00:00: 00:00 mouth [place] 00 :00 every 6 Medical (six) Branch hours as needed for Pain (scale 4-6). ibuprofen 2021-2- No [id number] 600mg Take 1 [facility] 600 mg 02-11 [id number] tablet by [facility] f tablet 00:00: 00:00 mouth [place] 00 :00 every 6 Medical (six) Branch hours as needed for Pain (scale 4-6). ibuprofen 2021-0 2- No [id number] 600mg Take 1 [facility] 600 mg 02-11 [id number] tablet by [facility] f tablet 00:00: 00:00 mouth [place] 00 :00 every 6 Medical (six) Branch hours as needed for Pain (scale 4-6). ibuprofen 2021-2- No [id number] 600mg Take 1 [facility] 600 mg 02-11 [id number] tablet by [facility] o f tablet 00:00: 00:00 mouth [place] 00 :00 every 6 Medical (six) Branch hours as needed for Pain (scale 4-6). topiramate 2021-0 Yes [id number] 50mg Take 2 [facility] 25 mg 5-16 tablets by [facility] tablet 00:00: mouth [place] (two) Medical times Branch daily. topiramate 2021-0 Yes [id number] 50mg Take 2 [facility] 25 mg 5-16 tablets by [facility] tablet 00:00: mouth [place] (two) Medical times Branch daily. topiramate 2-0 Yes [id number] 50mg Take 2 [facility] 25 mg 5-16 tablets by [facility] tablet 00:00: mouth [place] (two) Medical times Branch daily. topiramate 2022-0 Yes [id number] 50mg Take 2 [facility] 25 mg 5-16 tablets by [facility] tablet 00:00: mouth [place] (two) Medical times Branch daily. topiramate 2022-0 Yes [id number] 50mg Take 2 [facility] 25 mg 5-16 tablets by [facility] tablet 00:00: mouth [place] (two) Medical times Branch daily. topiramate 2022-0 Yes [id number] 50mg Take 2 [facility] 25 mg 5-16 tablets by [facility] tablet 00:00: mouth 2 (two) Medical times Branch daily. topiramate 2022-0 Yes [id number] 50mg Take 2 [facility] 25 mg 5-16 tablets by [facility] tablet 00:00: mouth 2 (two) Medical times Branch daily. topiramate 2022-0 Yes [id number] 50mg Take 2 [facility] 25 mg 5-16 tablets by [facility] tablet 00:00: mouth (two) Medical times Branch daily. topiramate 2022-0 Yes [id number] 50mg Take 2 [facility] 25 mg 5-16 tablets by [facility] tablet 00:00: mouth 2 (two) Medical times Branch daily. SUMAtriptan 2-0 Yes [id number] 50mg Take 1 [facility] 50 mg 5-16 tablet by [facility] tablet 00:00: mouth as [place] 00 needed for Medical Migraine. Branch topiramate 2021-0 Yes [id number] 50mg Take 2 [facility] 25 mg 5-16 tablets by [facility] tablet 00:00: mouth (two) Medical times Branch daily. SUMAtriptan 2-0 Yes [id number] 50mg Take 1 [facility] 50 mg 5-16 tablet by [facility] tablet 00:00: mouth as 00 needed for Medical Migraine. Branch topiramate 2-0 Yes [id number] 50mg Take 2 [facility] 25 mg 5-16 tablets by [facility] tablet 00:00: mouth (two) Medical times Branch daily. SUMAtriptan 2-0 Yes [id number] 50mg Take 1 [facility] 50 mg 5-16 tablet by [facility] tablet 00:00: mouth as [place] 00 needed for Medical Migraine. Branch topiramate 2-0 Yes [id number] 50mg Take 2 [facility] 25 mg 5-16 tablets by [facility] tablet 00:00: mouth 2 (two) Medical times Branch daily. SUMAtriptan 2022-0 Yes [id number] 50mg Take 1 [facility] 50 mg 5-16 tablet by [facility] tablet 00:00: mouth as [place] 00 needed for Medical Migraine. Branch topiramate 2-0 Yes [id number] 50mg Take 2 [facility] 25 mg 5-16 tablets by [facility] tablet 00:00: mouth 2 (two) Medical times Branch daily. SUMAtriptan 2-0 Yes [id number] 50mg Take 1 [facility] 50 mg 5-16 tablet by [facility] tablet 00:00: mouth as 00 needed for Medical Migraine. Branch topiramate 2-0 Yes [id number] 50mg Take 2 [facility] 25 mg 5-16 tablets by [facility] tablet 00:00: mouth [place] (two) Medical times Branch daily. SUMAtriptan 2-0 Yes [id number] 50mg Take 1 [facility] 50 mg 5-16 tablet by [facility] tablet 00:00: mouth as 00 needed for Medical Migraine. Branch topiramate 2021-0 Yes [id number] 50mg Take 2 [facility] 25 mg 5-16 tablets by [facility] tablet 00:00: mouth [place] (two) Medical times Branch daily. topiramate 2021-0 Yes [id number] 50mg Take 2 [facility] 25 mg 5-16 tablets by [facility] tablet 00:00: mouth [address] [place] [address] (two) Medical times Branch daily. topiramate 2021-0 Yes [id number] 50mg Take 2 [facility] 25 mg 5-16 tablets by [facility] tablet 00:00: mouth [place] (two) Medical times Branch daily. topiramate 2-0 Yes [id number] 50mg Take 2 [facility] 25 mg 5-16 tablets by [facility] tablet 00:00: mouth [place] (two) Medical times Branch daily. topiramate 2-0 Yes [id number] 50mg Take 2 [facility] 25 mg 5-16 tablets by [facility] tablet 00:00: mouth [address] [place] [address] (two) Medical times Branch daily. topiramate 2-0 Yes [id number] 50mg Take 2 [facility] 25 mg 5-16 tablets by [facility] tablet 00:00: mouth [place] (two) Medical times Branch daily. topiramate 2022-0 2022- No [id number] 50mg Take 2 [facility] 25 mg 5-16 09- tablets by [facility] tablet 00:00: 00:00 mouth 2 [place] 00 :00 (two) Medical times Branch daily. topiramate 2022-0 2022- No [id number] 50mg Take 2 [facility] 25 mg 5-16 09- tablets by [facility] of tablet 00:00: 00:00 mouth 2 [place] 00 :00 (two) Medical times Branch daily. topiramate 2021-0 2021- No [id number] 50mg Take 2 [facility] 25 mg 5-16 09-01 tablets by [facility] of tablet 00:00: 00:00 mouth 2 [place] 00 :00 (two) Medical times Branch daily. topiramate 2021-0 2- No [id number] 50mg Take 2 [facility] 25 mg 5-16 09-01 tablets by [facility] of tablet 00:00: 00:00 mouth 2 [place] 00 :00 (two) Medical times Branch daily. SUMAtriptan 2021-0 2021- No [id number] 50mg Take 1 [facility] 50 mg 5-16 06-17 tablet by [facility] tablet 00:00: 00:00 mouth as [place] 00 :00 needed for Medical Migraine. Branch SUMAtriptan 2021-2021- No [id number] 50mg Take 1 [facility] 50 mg 5-16 06-17 tablet by [facility] of tablet 00:00: 00:00 mouth as [place] 00 :00 needed for Medical Migraine. Branch ALCOHOL 0 Yes 1{dose} Apply 1 [facility] ers PADS PadM 5-08 Dose to it[facility] of 00:00: area(s) [place] 00 before Medical meals. Branch ALCOHOL 2021-0 Yes 1{dose} Apply 1 [facility] ers PADS PadM 5-08 Dose to ity of 00:00: [facility](s) [place] 00 before Medical meals. Branch [...] PadM 5-08 Dose to ity of 00:00: area() [place] 00 before Medical meals. Branch ALCOHOL Yes 1{dose} Apply 1 [facility] ers PADS PadM 5-08 Dose to ity of 00:00: [facility]() [place] 00 before Medical meals. Branch ALCOHOL Yes 1{dose} Apply 1 [facility] ers PADS PadM 5-08 Dose to ity of 00:00: [facility]() [place] 00 before Medical meals. Branch ALCOHOL Yes 1{dose} Apply 1 [facility] ers PADS PadM 5-08 Dose to ity of 00:00: [facility]() [place] 00 before Medical meals. Branch ALCOHOL Yes 1{dose} Apply 1 [facility] ers PADS PadM 5-08 Dose to ity of 00:00: [facility]() [place] 00 before Medical meals. Branch ALCOHOL 2021- No 1{dose} Apply 1 [facility] vers PADS PadM 5-08 -22 Dose to ity of 00:00: 00:00 [facility]() [place] 00 :00 before Medical meals. Branch ALCOHOL 2021- No 1{dose} Apply 1 [facility] vers PADS PadM 5-08 -22 Dose to ity of 00:00: 00:00 [facility]() [place] 00 :00 before Medical meals. Branch ALCOHOL 2021- No 1{dose} Apply 1 [facility] vers PADS PadM 5-08 -22 Dose to ity of 00:00: 00:00 [facility]() [place] 00 :00 before Medical meals. Branch ALCOHOL 2021- No 1{dose} Apply 1 [facility] vers PADS PadM 5-08 -22 Dose to ity of 00:00: 00:00 [facility]() [place] 00 :00 before Medical meals. Branch ALCOHOL 2021- No 1{dose} Apply 1 [facility] vers PADS PadM 5-08 -22 Dose to ity of 00:00: 00:00 [facility]() [place] 00 :00 before Medical meals. Branch ALCOHOL 2021- No 1{dose} Apply 1 [facility] vers PADS PadM 5-08 -22 Dose to ity of 00:00: 00:00 [facility]() [place] 00 :00 before Medical meals. Branch pregabalin Yes [id number] 150mg Take 1 [facility] 150 mg 4-29 capsule by [facility] of capsule 00:00: mouth (three) Medical times Branch daily. busPIRone 2021-0 Yes [id number] 20mg Take 2 [facility] [place] 10 mg 4-29 tablets by [facility] of tablet 00:00: mouth (two) Medical times Branch daily. citalopram 2021-0 Yes [id number] 40mg Take 1 [facility] n[facility] 40 mg 4-29 tablet by [facility] of tablet 00:00: mouth daily. Medical Branch pregabalin 2021-0 Yes [id number] 150mg Take 1 [facility] 150 mg 4-29 capsule by [facility] of capsule 00:00: mouth (three) Medical times Branch daily. busPIRone 2021-0 Yes [id number] 20mg Take 2 [facility] [place] 10 mg 4-29 tablets by [facility] of tablet 00:00: mouth (two) Medical times Branch daily. citalopram 2021-0 Yes [id number] 40mg Take 1 [facility] nivers 40 mg 4-29 tablet by [facility] of tablet 00:00: mouth daily. Medical Branch pregabalin 2021-0 Yes [id number] 150mg Take 1 [facility] 150 mg 4-29 capsule by [facility] of capsule 00:00: mouth (three) Medical times Branch daily. busPIRone 2021-0 Yes [id number] 20mg Take 2 [facility] [place] 10 mg 4-29 tablets by [facility] of tablet 00:00: mouth (two) Medical times Branch daily. citalopram 2021-0 Yes [id number] 40mg Take 1 [facility] nivers 40 mg 4-29 tablet by [facility] of tablet 00:00: mouth daily. Medical Branch pregabalin 2021-0 Yes [id number] 150mg Take 1 [facility] 150 mg 4-29 capsule by [facility] of capsule 00:00: mouth (three) Medical times Branch daily. busPIRone 2021-0 Yes [id number] 20mg Take 2 [facility] [place] 10 mg 4-29 tablets by [facility] of tablet 00:00: mouth (two) Medical times Branch daily. citalopram 2021-0 Yes [id number] 40mg Take 1 [facility] nivers 40 mg 4-29 tablet by [facility] of tablet 00:00: mouth daily. Medical Branch pregabalin 2021-0 Yes [id number] 150mg Take 1 [facility] 150 mg 4-29 capsule by ity of capsule 00:00: mouth (three) Medical times Branch daily. busPIRone 2021-0 Yes [id number] 20mg Take 2 [facility] [place] 10 mg 4-29 tablets by [facility]y of tablet 00:00: mouth (two) Medical times Branch daily. citalopram 2021-0 Yes [id number] 40mg Take 1 [facility] nivers 40 mg 4-29 tablet by [facility] of tablet 00:00: mouth 00 daily. Medical Branch pregabalin 2021-0 Yes [id number] 150mg Take 1 [facility] 150 mg 4-29 capsule by [facility]y of capsule 00:00: mouth (three) Medical times Branch daily. busPIRone 2021-0 Yes [id number] 20mg Take 2 [facility] [place] 10 mg 4-29 tablets by [facility]y of tablet 00:00: mouth (two) Medical times Branch daily. citalopram 2021-0 Yes [id number] 40mg Take 1 [facility] nivers 40 mg 4-29 tablet by [facility]y of tablet 00:00: mouth daily. Medical Branch pregabalin 2021-0 Yes [id number] 150mg Take 1 [facility] 150 mg 4-29 capsule by ity of capsule 00:00: mouth (three) Medical times Branch daily. busPIRone 2021-0 Yes [id number] 20mg Take 2 [facility] [place] 10 mg 4-29 tablets by [facility] of tablet 00:00: mouth (two) Medical times Branch daily. citalopram 2021-0 Yes [id number] 40mg Take 1 [facility] nivers 40 mg 4-29 tablet by ity of tablet 00:00: mouth daily. Medical Branch pregabalin 2021-0 Yes [id number] 150mg Take 1 [facility] 150 mg 4-29 capsule by ity of capsule 00:00: mouth (three) Medical times Branch daily. busPIRone 2-0 Yes [id number] 20mg Take 2 [facility] [place] 10 mg 4-29 tablets by [facility]y of tablet 00:00: mouth (two) Medical times Branch daily. citalopram 2021-0 Yes [id number] 40mg Take 1 [facility] nivers 40 mg 4-29 tablet by ity of tablet 00:00: mouth 00 daily. Medical Branch pregabalin 2021-0 Yes [id number] 150mg Take 1 [facility] 150 mg 4-29 capsule by ity of capsule 00:00: mouth 3 (three) Medical times Branch daily. busPIRone 2021-0 Yes [id number] 20mg Take 2 [facility] [place] 10 mg 4-29 tablets by ity of tablet 00:00: mouth (two) Medical times Branch daily. citalopram 2021-0 Yes [id number] 40mg Take 1 U nivers 40 mg 4-29 tablet by ity of tablet 00:00: mouth 00 daily. Medical Branch pregabalin 2021-0 Yes [id number] 150mg Take 1 [facility] 150 mg 4-29 capsule by ity of capsule 00:00: mouth (three) Medical times Branch daily. busPIRone 2021-0 Yes [id number] 20mg Take 2 [facility] [place] 10 mg 4-29 tablets by [facility] of tablet 00:00: mouth (two) Medical times Branch daily. citalopram 2021-0 Yes [id number] 40mg Take 1 [facility] nivers 40 mg 4-29 tablet by ity of tablet 00:00: mouth 00 daily. Medical Branch pregabalin 2021-0 Yes [id number] 150mg Take 1 [facility] 150 mg 4-29 capsule by ity of capsule 00:00: mouth (three) Medical times Branch daily. busPIRone 2021-0 Yes [id number] 20mg Take 2 [facility] [place] 10 mg 4-29 tablets by ity of tablet 00:00: mouth (two) Medical times Branch daily. citalopram 2021-0 Yes [id number] 40mg Take 1 [facility] nivers 40 mg 4-29 tablet by [facility]y of tablet 00:00: mouth 00 daily. Medical Branch pregabalin 2021-0 Yes [id number] 150mg Take 1 [facility] 150 mg 4-29 capsule by ity of capsule 00:00: mouth 3 (three) Medical times Branch daily. busPIRone 2021-0 Yes [id number] 20mg Take 2 [facility] [place] 10 mg 4-29 tablets by [facility] of tablet 00:00: mouth (two) Medical times Branch daily. citalopram 2021-0 Yes [id number] 40mg Take 1 [facility] nivers 40 mg 4-29 tablet by [facility]y of tablet 00:00: mouth 00 daily. Medical Branch pregabalin 2021-0 Yes [id number] 150mg Take 1 [facility] 150 mg 4-29 capsule by [facility] of capsule 00:00: mouth (three) Medical times Branch daily. busPIRone 2021-0 Yes [id number] 20mg Take 2 [facility] [place] 10 mg 4-29 tablets by [facility] of tablet 00:00: mouth (two) Medical times Branch daily. citalopram 2021-0 Yes [id number] 40mg Take 1 [facility] nivers 40 mg 4-29 tablet by [facility] of tablet 00:00: mouth 00 daily. Medical Branch pregabalin 2021-0 Yes [id number] 150mg Take 1 [facility] 150 mg 4-29 capsule by ity of capsule 00:00: mouth (three) Medical times Branch daily. busPIRone 2021-0 Yes [id number] 20mg Take 2 [facility] [place] 10 mg 4-29 tablets by [facility]y of tablet 00:00: mouth (two) Medical times Branch daily. citalopram 2021-0 Yes [id number] 40mg Take 1 [facility] nivers 40 mg 4-29 tablet by [facility]y of tablet 00:00: mouth 00 daily. Medical Branch pregabalin 2021-0 Yes [id number] 150mg Take 1 [facility] 150 mg 4-29 capsule by ity of capsule 00:00: mouth (three) Medical times Branch daily. busPIRone 2021-0 Yes [id number] 20mg Take 2 [facility] [place] 10 mg 4-29 tablets by [facility]y of tablet 00:00: mouth (two) Medical times Branch daily. citalopram 2021-0 Yes [id number] 40mg Take 1 [facility] nivers 40 mg 4-29 tablet by ity of tablet 00:00: mouth 00 daily. Medical Branch pregabalin 2021-0 Yes [id number] 150mg Take 1 [facility] 150 mg 4-29 capsule by ity of capsule 00:00: mouth 3 (three) Medical times Branch daily. busPIRone 2021-0 Yes [id number] 20mg Take 2 [facility] [place] 10 mg 4-29 tablets by [facility]y of tablet 00:00: mouth (two) Medical times Branch daily. citalopram 2021-0 Yes [id number] 40mg Take 1 [facility] nivers 40 mg 4-29 tablet by [facility]y of tablet 00:00: mouth daily. Medical Branch pregabalin 2021-0 Yes [id number] 150mg Take 1 [facility] 150 mg 4-29 capsule by ity of capsule 00:00: mouth 3 (three) Medical times Branch daily. busPIRone 2021-0 Yes [id number] 20mg Take 2 [facility] [place] 10 mg 4-29 tablets by [facility]y of tablet 00:00: mouth (two) Medical times Branch daily. citalopram 2021-0 Yes [id number] 40mg Take 1 [facility] nivers 40 mg 4-29 tablet by [facility]y of tablet 00:00: mouth daily. Medical Branch pregabalin 2021-0 Yes [id number] 150mg Take 1 [facility] 150 mg 4-29 capsule by ity of capsule 00:00: mouth (three) Medical times Branch daily. busPIRone 2021-0 Yes [id number] 20mg Take 2 [facility] [place] 10 mg 4-29 tablets by ity of tablet 00:00: mouth (two) Medical times Branch daily. citalopram 2021-0 Yes [id number] 40mg Take 1 [facility] nivers 40 mg 4-29 tablet by [facility]y of tablet 00:00: mouth daily. Medical Branch pregabalin 2021-0 Yes [id number] 150mg Take 1 [facility] 150 mg 4-29 capsule by ity of capsule 00:00: mouth (three) Medical times Branch daily. busPIRone 2-0 Yes [id number] 20mg Take 2 [facility] [place] 10 mg 4-29 tablets by [facility]y of tablet 00:00: mouth (two) Medical times Branch daily. citalopram 2-0 Yes [id number] 40mg Take 1 [facility] nivers 40 mg 4-29 tablet by [facility]y of tablet 00:00: mouth [place] 00 daily. Medical Branch pregabalin 2021-0 Yes [id number] 150mg Take 1 [facility] 150 mg 4-29 capsule by ity of capsule 00:00: mouth (three) Medical times Branch daily. busPIRone 2021-0 Yes [id number] 20mg Take 2 [facility] [place] 10 mg 4-29 tablets by ity of tablet 00:00: mouth (two) Medical times Branch daily. citalopram 2021-0 Yes [id number] 40mg Take 1 [facility] nivers 40 mg 4-29 tablet by ity of tablet 00:00: mouth 00 daily. Medical Branch pregabalin 2021-0 Yes [id number] 150mg Take 1 [facility] 150 mg 4-29 capsule by ity of capsule 00:00: mouth (three) Medical times Branch daily. busPIRone 2021-0 Yes [id number] 20mg Take 2 [facility] [place] 10 mg 4-29 tablets by ity of tablet 00:00: mouth (two) Medical times Branch daily. citalopram 2021-0 Yes [id number] 40mg Take 1 [facility] nivers 40 mg 4-29 tablet by ity of tablet 00:00: mouth daily. Medical Branch pregabalin 2021-0 Yes [id number] 150mg Take 1 [facility] 150 mg 4-29 capsule by ity of capsule 00:00: mouth (three) Medical times Branch daily. busPIRone 2021-0 Yes [id number] 20mg Take 2 [facility] [place] 10 mg 4-29 tablets by [facility]y of tablet 00:00: mouth (two) Medical times Branch daily. citalopram 2021-0 Yes [id number] 40mg Take 1 [facility] nivers 40 mg 4-29 tablet by ity of tablet 00:00: mouth daily. Medical Branch pregabalin 2021-0 Yes [id number] 150mg Take 1 [facility] 150 mg 4-29 capsule by ity of capsule 00:00: mouth (three) Medical times Branch daily. busPIRone 2021-0 Yes [id number] 20mg Take 2 [facility] [place] 10 mg 4-29 tablets by ity of tablet 00:00: mouth (two) Medical times Branch daily. citalopram 2021-0 Yes [id number] 40mg Take 1 [facility] nivers 40 mg 4-29 tablet by [facility]y of tablet 00:00: mouth 00 daily. Medical Branch pregabalin 2021-0 Yes [id number] 150mg Take 1 [facility] 150 mg 4-29 capsule by ity of capsule 00:00: mouth 3 (three) Medical times Branch daily. busPIRone 2021-0 Yes [id number] 20mg Take 2 [facility] [place] 10 mg 4-29 tablets by ity of tablet 00:00: mouth 2 (two) Medical times Branch daily. citalopram 2021-0 Yes [id number] 40mg Take 1 U nivers 40 mg 4-29 tablet by ity of tablet 00:00: mouth 00 daily. Medical Branch pregabalin 2021-0 Yes [id number] 150mg Take 1 [facility] 150 mg 4-29 capsule by ity of capsule 00:00: mouth 3 (three) Medical times Branch daily. busPIRone 2021-0 Yes [id number] 20mg Take 2 [facility] [place] 10 mg 4-29 tablets by ity of tablet 00:00: mouth (two) Medical times Branch daily. citalopram 2021-0 Yes [id number] 40mg Take 1 U nivers 40 mg 4-29 tablet by ity of tablet 00:00: mouth 00 daily. Medical Branch pregabalin 2021-0 Yes [id number] 150mg Take 1 [facility] 150 mg 4-29 capsule by ity of capsule 00:00: mouth 3 (three) Medical times Branch daily. busPIRone 2021-0 Yes [id number] 20mg Take 2 [facility] [place] 10 mg 4-29 tablets by ity of tablet 00:00: mouth (two) Medical times Branch daily. citalopram 2021-0 Yes [id number] 40mg Take 1 [facility] nivers 40 mg 4-29 tablet by ity of tablet 00:00: mouth 00 daily. Medical Branch pregabalin 2021-0 Yes [id number] 150mg Take 1 [facility] 150 mg 4-29 capsule by ity of capsule 00:00: mouth 3 (three) Medical times Branch daily. busPIRone 2021-0 Yes [id number] 20mg Take 2 [facility] [place] 10 mg 4-29 tablets by ity of tablet 00:00: mouth (two) Medical times Branch daily. citalopram 2021-0 Yes [id number] 40mg Take 1 U nivers 40 mg 4-29 tablet by ity of tablet 00:00: mouth daily. Medical Branch pregabalin 2021-0 Yes [id number] 150mg Take 1 [facility] 150 mg 4-29 capsule by ity of capsule 00:00: mouth (three) Medical times Branch daily. busPIRone 2021-0 Yes [id number] 20mg Take 2 [facility] [place] 10 mg 4-29 tablets by ity of tablet 00:00: mouth (two) Medical times Branch daily. citalopram 2021-0 Yes [id number] 40mg Take 1 U nivers 40 mg 4-29 tablet by ity of tablet 00:00: mouth daily. Medical Branch pregabalin 2021-0 Yes [id number] 150mg Take 1 [facility] 150 mg 4-29 capsule by ity of capsule 00:00: mouth (three) Medical times Branch daily. busPIRone 2021-0 Yes [id number] 20mg Take 2 [facility] [place] 10 mg 4-29 tablets by ity of tablet 00:00: mouth (two) Medical times Branch daily. citalopram 2021-0 Yes [id number] 40mg Take 1 U nivers 40 mg 4-29 tablet by ity of tablet 00:00: mouth daily. Medical Branch pregabalin 2021-0 Yes [id number] 150mg Take 1 [facility] 150 mg 4-29 capsule by ity of capsule 00:00: mouth (three) Medical times Branch daily. busPIRone 2021-0 Yes [id number] 20mg Take 2 [facility] [place] 10 mg 4-29 tablets by ity of tablet 00:00: mouth (two) Medical times Branch daily. citalopram 2021-0 Yes [id number] 40mg Take 1 U nivers 40 mg 4-29 tablet by ity of tablet 00:00: mouth 00 daily. Medical Branch pregabalin 2021-0 Yes [id number] 150mg Take 1 [facility] 150 mg 4-29 capsule by ity of capsule 00:00: mouth 3 (three) Medical times Branch daily. busPIRone 2022-0 Yes [id number] 20mg Take 2 Un [facility] 10 mg 4-29 tablets by [facility] 00:00: mouth (two) [facility] daily. citalopram 2021-0 Yes [id number] 40mg Take 1 [facility] 40 mg 4-29 tablet by [facility] tablet 00:00: mouth daily. [facility] pregabalin 2021-0 Yes [id number] 150mg Take 1 [facility] 150 [facility] 4-29 capsule by [facility] capsule 00:00: mouth 3 (three) [facility] times [facility] daily. busPIRone 2021-0 Yes [id number] 20mg Take 2 Un [facility] 10 mg 4-29 tablets by [facility] tablet 00:00: mouth (two) [facility] times [facility] daily. citalopram 2021-0 Yes [id number] 40mg Take 1 [facility] 40 mg 4-29 tablet by [facility] tablet 00:00: mouth daily. [facility] pregabalin 2021-0 Yes [id number] 150mg Take 1 [facility] 150 mg 4-29 capsule by [facility] 00:00: mouth (three) [facility] times [facility] daily. busPIRone 2021-0 Yes [id number] 20mg Take 2 [facility] 10 mg 4-29 tablets by [facility] tablet 00:00: mouth (two) [facility] times [facility] daily. citalopram 2021-0 Yes [id number] 40mg Take 1 [facility] 40 mg 4-29 tablet by [facility] 00:00: mouth daily. [facility] pregabalin 2021-0 Yes [id number] 150mg Take 1 [facility] 150 mg 4-29 capsule by [facility] 00:00: mouth (three) [facility] times [facility] daily. busPIRone 2-0 Yes [id number] 20mg Take 2 [facility] 10 mg 4-29 tablets by [facility] tablet 00:00: mouth (two) [facility] times [facility] daily. citalopram 2-0 Yes [id number] 40mg Take 1 [facility] 40 mg 4-29 tablet by [facility] tablet 00:00: mouth 00 daily. [facility] pregabalin 2021-0 Yes [id number] 150mg Take 1 [facility] 150 mg 4-29 capsule by [facility] 00:00: mouth 3 (three) [facility] times [facility] daily. busPIRone 2021-0 Yes [id number] 20mg Take 2 [facility] 10 mg 4-29 tablets by [facility] tablet 00:00: mouth (two) [facility] times [facility] daily. citalopram 2021-0 Yes [id number] 40mg Take 1 [facility] 40 mg 4-29 tablet by [facility] 00:00: mouth 00 daily. [facility] pregabalin 2021-0 Yes [id number] 150mg Take 1 [facility] 150 mg 4-29 capsule by [facility] 00:00: mouth 3 (three) [facility] times [facility] daily. busPIRone 2021-0 Yes [id number] 20mg Take 2 [facility] 10 mg 4-29 tablets by [facility] tablet 00:00: mouth (two) [facility] times [facility] daily. citalopram 2021-0 Yes [id number] 40mg Take 1 [facility] 40 mg 4-29 tablet by [facility] tablet 00:00: mouth 00 daily. [facility] pregabalin 2021-0 Yes [id number] 150mg Take 1 [facility] 150 mg 4-29 capsule by [facility] 00:00: mouth 3 (three) [facility] times [facility] daily. busPIRone 2021-0 Yes [id number] 20mg Take 2 [facility] 10 mg 4-29 tablets by [facility] tablet 00:00: mouth (two) [facility] times [facility] daily. citalopram 2021-0 Yes [id number] 40mg Take 1 [facility] 40 mg 4-29 tablet by [facility] 00:00: mouth 00 daily. [facility] citalopram 2021-0 Yes [id number] 40mg Take 1 [facility] 40 mg 4-29 tablet by [facility] tablet 00:00: mouth [place] 00 daily. [facility] citalopram 2021-0 Yes [id number] 40mg Take 1 [facility] 40 mg 4-29 tablet by [facility] 00:00: mouth 00 daily. [facility] citalopram 2021-0 Yes [id number] 40mg Take 1 [facility] 40 mg 4-29 tablet by [facility] tablet 00:00: mouth [place] 00 daily. [facility] citalopram 0 Yes [id number] 40mg Take 1 [facility] 40 mg 4-29 tablet by [facility] tablet 00:00: mouth [place] 00 daily. [facility] citalopram 0 Yes [id number] 40mg Take 1 [facility] 40 mg 4-29 tablet by [facility] tablet 00:00: mouth [place] 00 daily. [facility] citalopram 0 Yes [id number] 40mg Take 1 [facility] 40 mg 4-29 tablet by [facility] tablet 00:00: mouth [place] 00 daily. [facility] citalopram 0 Yes [id number] 40mg Take 1 [facility] 40 mg 4-29 tablet by [facility] tablet 00:00: mouth [place] 00 daily. [facility] citalopram 0 Yes [id number] 40mg Take 1 [facility] 40 mg 4-29 tablet by [facility] tablet 00:00: mouth [place] 00 daily. [facility] citalopram 0 Yes [id number] 40mg Take 1 [facility] 40 mg 4-29 tablet by [facility] tablet 00:00: mouth [place] 00 daily. [facility] citalopram 0 Yes [id number] 40mg Take 1 [facility] 40 mg 4-29 tablet by [facility] tablet 00:00: mouth [place] 00 daily. [facility] citalopram 0 Yes [id number] 40mg Take 1 [facility] 40 mg 4-29 tablet by [facility] tablet 00:00: mouth [place] 00 daily. [facility] citalopram 0 Yes [id number] 40mg Take 1 [facility] 40 mg 4-29 tablet by [facility] 00:00: mouth [place] 00 daily. [facility] citalopram 0 Yes [id number] 40mg Take 1 [facility] 40 mg 4-29 tablet by [facility] 00:00: mouth [place] 00 daily. [facility] citalopram 0 Yes [id number] 40mg Take 1 [facility] 40 mg 4-29 tablet by [facility] 00:00: mouth [place] 00 daily. [facility] citalopram 2022-0 Yes [id number] 40mg Take 1 [facility] 40 mg 4-29 tablet by [facility] 00:00: mouth [place] 00 daily. [facility] citalopram 0 Yes [id number] 40mg Take 1 [facility] 40 mg 4-29 tablet by [facility] 00:00: mouth [place] 00 daily. [facility] citalopram 0 Yes [id number] 40mg Take 1 [facility] 40 mg 4-29 tablet by [facility] tablet 00:00: mouth [place] 00 daily. [facility] citalopram 0 Yes [id number] 40mg Take 1 [facility] 40 mg 4-29 tablet by [facility] tablet 00:00: mouth [place] 00 daily. [facility] citalopram 0 Yes [id number] 40mg Take 1 [facility] 40 mg 4-29 tablet by [facility] tablet 00:00: mouth [place] 00 daily. [facility] citalopram 0 Yes [id number] 40mg Take 1 [facility] 40 mg 4-29 tablet by [facility] 00:00: mouth [place] 00 daily. [facility] citalopram 0 Yes [id number] 40mg Take 1 [facility] 40 mg 4-29 tablet by [facility] tablet 00:00: mouth [place] 00 daily. [facility] citalopram 0 Yes [id number] 40mg Take 1 [facility] 40 mg 4-29 tablet by [facility] 00:00: mouth [place] 00 daily. [facility] citalopram 0 Yes [id number] 40mg Take 1 [facility] 40 mg 4-29 tablet by [facility] tablet 00:00: mouth [place] 00 daily. [facility] citalopram 0 Yes [id number] 40mg Take 1 [facility] 40 mg 4-29 tablet by [facility] tablet 00:00: mouth [place] 00 daily. [facility] citalopram 0 Yes [id number] 40mg Take 1 [facility] 40 mg 4-29 tablet by [facility] tablet 00:00: mouth [place] 00 daily. [facility] citalopram 0 Yes [id number] 40mg Take 1 [facility] 40 mg 4-29 tablet by [facility] 00:00: mouth [place] 00 daily. [facility] citalopram 2022-0 Yes [id number] 40mg Take 1 [facility] 40 mg 4-29 tablet by [facility] 00:00: mouth [place] 00 daily. [facility] citalopram 0 Yes [id number] 40mg Take 1 [facility] 40 mg 4-29 tablet by [facility] 00:00: mouth [place] 00 daily. [facility] citalopram 0 Yes [id number] 40mg Take 1 [facility] 40 mg 4-29 tablet by [facility] 00:00: mouth [place] 00 daily. [facility] citalopram 0 Yes [id number] 40mg Take 1 [facility] 40 mg 4-29 tablet by [facility] 00:00: mouth [place] 00 daily. [facility] citalopram 0 Yes [id number] 40mg Take 1 [facility] 40 mg 4-29 tablet by [facility] 00:00: mouth [place] 00 daily. [facility] citalopram 0 Yes [id number] 40mg Take 1 [facility] 40 mg 4-29 tablet by [facility] tablet 00:00: mouth [place] 00 daily. [facility] citalopram 0 Yes [id number] 40mg Take 1 [facility] 40 mg 4-29 tablet by [facility] tablet 00:00: mouth [place] 00 daily. [facility] citalopram Yes [id number] 40mg Take 1 [facility] 40 mg 4-29 tablet by [facility] tablet 00:00: mouth [place] 00 daily. [facility] citalopram 0 Yes [id number] 40mg Take 1 [facility] 40 mg 4-29 tablet by [facility] 00:00: mouth [place] 00 daily. [facility] citalopram 0 Yes [id number] 40mg Take 1 [facility] 40 mg 4-29 tablet by [facility] 00:00: mouth [place] 00 daily. [facility] citalopram 0 Yes [id number] 40mg Take 1 [facility] 40 mg 4-29 tablet by [facility] tablet 00:00: mouth [place] 00 daily. [facility] citalopram 0 Yes [id number] 40mg Take 1 [facility] 40 mg 4-29 tablet by [facility] 00:00: mouth [place] 00 daily. [facility] citalopram 0 Yes [id number] 40mg Take 1 [facility] 40 mg 4-29 tablet by [facility] 00:00: mouth [place] 00 daily. [facility] citalopram 0 Yes [id number] 40mg Take 1 [facility] 40 mg 4-29 tablet by [facility] 00:00: mouth [place] 00 daily. [facility] citalopram 0 Yes [id number] 40mg Take 1 [facility] 40 mg 4-29 tablet by [facility] 00:00: mouth [place] 00 daily. [facility] citalopram 0 Yes [id number] 40mg Take 1 [facility] 40 mg 4-29 tablet by [facility] 00:00: mouth [place] 00 daily. [facility] citalopram 0 Yes [id number] 40mg Take 1 [facility] 40 mg 4-29 tablet by [facility] tablet 00:00: mouth [place] 00 daily. [facility] citalopram 0 Yes [id number] 40mg Take 1 [facility] 40 mg 4-29 tablet by [facility] tablet 00:00: mouth [place] 00 daily. [facility] citalopram 0 Yes [id number] 40mg Take 1 [facility] 40 mg 4-29 tablet by [facility] 00:00: mouth [place] 00 daily. [facility] citalopram Yes [id number] 40mg Take 1 [facility] 40 mg 4-29 tablet by [facility] tablet 00:00: mouth [place] 00 daily. [facility] citalopram 0 Yes [id number] 40mg Take 1 [facility] 40 mg 4-29 tablet by [facility] tablet 00:00: mouth [place] 00 daily. [facility] citalopram 0 Yes [id number] 40mg Take 1 [facility] 40 mg 4-29 tablet by [facility] 00:00: mouth [place] 00 daily. [facility] citalopram 0 Yes [id number] 40mg Take 1 [facility] 40 mg 4-29 tablet by [facility] 00:00: mouth [place] 00 daily. [facility] citalopram 0 Yes [id number] 40mg Take 1 [facility] 40 mg 4-29 tablet by [facility] tablet 00:00: mouth [place] 00 daily. [facility] citalopram 0 Yes [id number] 40mg Take 1 [facility] 40 mg 4-29 tablet by [facility] tablet 00:00: mouth [place] 00 daily. [facility] citalopram 0 Yes [id number] 40mg Take 1 [facility] 40 mg 4-29 tablet by [facility] tablet 00:00: mouth [place] 00 daily. [facility] citalopram 0 Yes [id number] 40mg Take 1 [facility] 40 mg 4-29 tablet by [facility] tablet 00:00: mouth [place] 00 daily. [facility] citalopram 0 Yes [id number] 40mg Take 1 [facility] 40 mg 4-29 tablet by [facility] tablet 00:00: mouth [place] 00 daily. [facility] citalopram 0 Yes [id number] 40mg Take 1 [facility] 40 mg 4-29 tablet by [facility] tablet 00:00: mouth [place] 00 daily. [facility] citalopram 0 Yes [id number] 40mg Take 1 [facility] 40 mg 4-29 tablet by [facility] tablet 00:00: mouth [place] 00 daily. [facility] citalopram 0 Yes [id number] 40mg Take 1 [facility] 40 mg 4-29 tablet by [facility] tablet 00:00: mouth [place] 00 daily. [facility] citalopram 0 Yes [id number] 40mg Take 1 [facility] 40 mg 4-29 tablet by [facility] tablet 00:00: mouth [place] 00 daily. [facility] citalopram 0 Yes [id number] 40mg Take 1 [facility] 40 mg 4-29 tablet by [facility] tablet 00:00: mouth [place] 00 daily. [facility] citalopram 0 Yes [id number] 40mg Take 1 [facility] 40 mg 4-29 tablet by [facility] tablet 00:00: mouth [place] 00 daily. [facility] citalopram 0 Yes [id number] 40mg Take 1 [facility] 40 mg 4-29 tablet by [facility] tablet 00:00: mouth [place] 00 daily. [facility] citalopram 0 Yes [id number] 40mg Take 1 [facility] 40 mg 4-29 tablet by [facility] tablet 00:00: mouth [place] 00 daily. [facility] citalopram 2021-0 Yes [id number] 40mg Take 1 [facility] 40 mg 4-29 tablet by [facility] tablet 00:00: mouth [place] 00 daily. [facility] citalopram 2021-0 Yes [id number] 40mg Take 1 [facility] 40 mg 4-29 tablet by [facility] tablet 00:00: mouth [place] 00 daily. [facility] citalopram 2021-0 Yes [id number] 40mg Take 1 [facility] 40 mg 4-29 tablet by [facility] tablet 00:00: mouth [place] 00 daily. [facility] citalopram 2021-0 Yes [id number] 40mg Take 1 [facility] 40 mg 4-29 tablet by [facility] tablet 00:00: mouth [place] 00 daily. [facility] citalopram 0 Yes [id number] 40mg Take 1 [facility] 40 mg 4-29 tablet by [facility] tablet 00:00: mouth [place] 00 daily. [facility] citalopram 0 Yes [id number] 40mg Take 1 [facility] 40 mg 4-29 tablet by [facility] tablet 00:00: mouth [place] 00 daily. [facility] citalopram 0 Yes [id number] 40mg Take 1 [facility] 40 mg 4-29 tablet by [facility] tablet 00:00: mouth [place] 00 daily. [facility] citalopram 0 Yes [id number] 40mg Take 1 [facility] 40 mg 4-29 tablet by [facility] tablet 00:00: mouth [place] 00 daily. [facility] citalopram 2021-0 Yes [id number] 40mg Take 1 [facility] 40 mg 4-29 tablet by [facility] tablet 00:00: mouth [place] 00 daily. [facility] citalopram 2021-0 Yes [id number] 40mg Take 1 [facility] 40 mg 4-29 tablet by [facility] tablet 00:00: mouth [place] 00 daily. [facility] citalopram 2021-0 Yes [id number] 40mg Take 1 [facility] 40 mg 4-29 tablet by [facility] tablet 00:00: mouth [place] 00 daily. [facility] citalopram 2021-0 Yes [id number] 40mg Take 1 [facility] 40 mg 4-29 tablet by [facility] tablet 00:00: mouth [place] 00 daily. [facility] citalopram 0 Yes [id number] 40mg Take 1 [facility] 40 mg 4-29 tablet by [facility] tablet 00:00: mouth [place] 00 daily. [facility] citalopram 0 Yes [id number] 40mg Take 1 [facility] 40 mg 4-29 tablet by [facility] tablet 00:00: mouth [place] 00 daily. [facility] citalopram 2021-0 Yes [id number] 40mg Take 1 [facility] 40 mg 4-29 tablet by [facility] tablet 00:00: mouth [place] 00 daily. [facility] citalopram 0 Yes [id number] 40mg Take 1 [facility] 40 mg 4-29 tablet by [facility] tablet 00:00: mouth [place] 00 daily. [facility] citalopram 0 Yes [id number] 40mg Take 1 [facility] 40 mg 4-29 tablet by [facility] tablet 00:00: mouth [place] 00 daily. [facility] citalopram 0 Yes [id number] 40mg Take 1 [facility] 40 mg 4-29 tablet by [facility] tablet 00:00: mouth [place] 00 daily. [facility] citalopram 0 Yes [id number] 40mg Take 1 [facility] 40 mg 4-29 tablet by [facility] tablet 00:00: mouth [place] 00 daily. [facility] citalopram 0 Yes [id number] 40mg Take 1 [facility] 40 mg 4-29 tablet by [facility] tablet 00:00: mouth [place] 00 daily. [facility] citalopram 0 Yes [id number] 40mg Take 1 [facility] 40 mg 4-29 tablet by [facility] tablet 00:00: mouth [place] 00 daily. [facility] citalopram 0 Yes [id number] 40mg Take 1 [facility] 40 mg 4-29 tablet by [facility] tablet 00:00: mouth [place] 00 daily. [facility] citalopram 0 Yes [id number] 40mg Take 1 [facility] 40 mg 4-29 tablet by [facility] tablet 00:00: mouth [place] 00 daily. [facility] citalopram 2021-0 Yes [id number] 40mg Take 1 [facility] 40 mg 4-29 tablet by [facility] tablet 00:00: mouth [place] 00 daily. [facility] citalopram 0 Yes [id number] 40mg Take 1 [facility] 40 mg 4-29 tablet by [facility] tablet 00:00: mouth [place] 00 daily. [facility] citalopram 0 Yes [id number] 40mg Take 1 [facility] 40 mg 4-29 tablet by [facility] tablet 00:00: mouth [place] 00 daily. [facility] citalopram 0 Yes [id number] 40mg Take 1 [facility] 40 mg 4-29 tablet by [facility] tablet 00:00: mouth [place] 00 daily. [facility] citalopram 0 Yes [id number] 40mg Take 1 [facility] 40 mg 4-29 tablet by [facility] tablet 00:00: mouth [place] 00 daily. [facility] citalopram Yes [id number] 40mg Take 1 [facility] 40 mg 4-29 tablet by [facility] tablet 00:00: mouth [place] 00 daily. [facility] citalopram 0 Yes [id number] 40mg Take 1 [facility] 40 mg 4-29 tablet by [facility] tablet 00:00: mouth [place] 00 daily. [facility] citalopram 0 Yes [id number] 40mg Take 1 [facility] 40 mg 4-29 tablet by [facility] tablet 00:00: mouth [place] 00 daily. [facility] citalopram Yes [id number] 40mg Take 1 [facility] 40 mg 4-29 tablet by [facility] tablet 00:00: mouth [place] 00 daily. [facility] citalopram 0 Yes [id number] 40mg Take 1 [facility] 40 mg 4-29 tablet by [facility] tablet 00:00: mouth [place] 00 daily. [facility] citalopram 0 Yes [id number] 40mg Take 1 [facility] 40 mg 4-29 tablet by [facility] tablet 00:00: mouth [place] 00 daily. [facility] citalopram 0 Yes [id number] 40mg Take 1 [facility] 40 mg 4-29 tablet by [facility] tablet 00:00: mouth [place] 00 daily. [facility] pregabalin 0 Yes [id number] 150mg Take 1 [facility] 150 mg 4-29 capsule by [facility] capsule 00:00: mouth 3 (three) [facility] times [facility] daily. busPIRone 2021-0 Yes [id number] 20mg Take 2 [facility] 10 mg 4-29 tablets by [facility] tablet 00:00: mouth (two) [facility] times [facility] daily. citalopram 2021-0 Yes [id number] 40mg Take 1 [facility] 40 mg 4-29 tablet by [facility] tablet 00:00: mouth daily. [facility] pregabalin 2021-0 Yes [id number] 150mg Take 1 [facility] 150 mg 4-29 capsule by [facility] capsule 00:00: mouth 3 (three) [facility] times [facility] daily. busPIRone 2021-0 Yes [id number] 20mg Take 2 [facility] 10 mg 4-29 tablets by [facility] tablet 00:00: mouth (two) [facility] times [facility] daily. citalopram 2021-0 Yes [id number] 40mg Take 1 [facility] 40 mg 4-29 tablet by [facility] tablet 00:00: mouth daily. [facility] pregabalin 2021-0 Yes [id number] 150mg Take 1 [facility] 150 mg 4-29 capsule by [facility] capsule 00:00: mouth (three) [facility] times [facility] daily. busPIRone 2021-0 Yes [id number] 20mg Take 2 [facility] 10 mg 4-29 tablets by [facility] tablet 00:00: mouth (two) [facility] times [facility] daily. citalopram 2021-0 Yes [id number] 40mg Take 1 [facility] 40 mg 4-29 tablet by [facility] tablet 00:00: mouth daily. [facility] pregabalin 2021-0 Yes [id number] 150mg Take 1 [facility] 150 mg 4-29 capsule by [facility] capsule 00:00: mouth (three) [facility] times [facility] daily. busPIRone 2-0 Yes [id number] 20mg Take 2 [facility] 10 mg 4-29 tablets by [facility] tablet 00:00: mouth (two) [facility] times [facility] daily. citalopram 2-0 Yes [id number] 40mg Take 1 [facility] 40 mg 4-29 tablet by [facility] tablet 00:00: mouth [place] 00 daily. [facility] pregabalin 2021-0 Yes [id number] 150mg Take 1 [facility] 150 mg 4-29 capsule by [facility] capsule 00:00: mouth (three) [facility] times [facility] daily. busPIRone 2021-0 Yes [id number] 20mg Take 2 [facility] 10 mg 4-29 tablets by [facility] tablet 00:00: mouth (two) [facility] times [facility] daily. citalopram 2021-0 Yes [id number] 40mg Take 1 [facility] 40 mg 4-29 tablet by [facility] tablet 00:00: mouth 00 daily. [facility] pregabalin 2021-0 Yes [id number] 150mg Take 1 [facility] 150 mg 4-29 capsule by [facility] capsule 00:00: mouth (three) [facility] times [facility] daily. busPIRone 2021-0 Yes [id number] 20mg Take 2 [facility] 10 mg 4-29 tablets by [facility] tablet 00:00: mouth (two) [facility] times [facility] daily. citalopram 2021-0 Yes [id number] 40mg Take 1 [facility] 40 mg 4-29 tablet by [facility] tablet 00:00: mouth daily. [facility] pregabalin 2021-0 Yes [id number] 150mg Take 1 [facility] 150 mg 4-29 capsule by [facility] capsule 00:00: mouth (three) [facility] times [facility] daily. busPIRone 2021-0 Yes [id number] 20mg Take 2 [facility] 10 mg 4-29 tablets by [facility] tablet 00:00: mouth (two) [facility] times [facility] daily. citalopram 2021-0 Yes [id number] 40mg Take 1 [facility] 40 mg 4-29 tablet by [facility] tablet 00:00: mouth daily. [facility] pregabalin 2021-0 Yes [id number] 150mg Take 1 [facility] 150 mg 4-29 capsule by [facility] capsule 00:00: mouth (three) [facility] times [facility] daily. busPIRone 2021-0 Yes [id number] 20mg Take 2 [facility] 10 mg 4-29 tablets by [facility] tablet 00:00: mouth (two) [facility] times [facility] daily. citalopram 0 Yes [id number] 40mg Take 1 [facility] 40 mg 4-29 tablet by [facility] tablet 00:00: mouth [place] 00 daily. [facility] pregabalin 0 Yes [id number] 150mg Take 1 [facility] 150 mg 4-29 capsule by [facility] capsule 00:00: mouth 3 [place] 00 (three) [facility] times [facility] daily. busPIRone 0 Yes [id number] 20mg Take 2 [facility] 10 mg 4-29 tablets by [facility] tablet 00:00: mouth 2 00 (two) [facility] times [facility] daily. citalopram 0 Yes [id number] 40mg Take 1 [facility] 40 mg 4-29 tablet by [facility] tablet 00:00: mouth [place] 00 daily. [facility] pregabalin 0 Yes [id number] 150mg Take 1 [facility] 150 mg 4-29 capsule by [facility] capsule 00:00: mouth 3 00 (three) [facility] times [facility] daily. busPIRone 2021-0 Yes [id number] 20mg Take 2 [facility] [place] 10 mg 4-29 tablets by [facility] tablet 00:00: mouth 2 (two) [facility] times [facility] daily. citalopram 0 Yes [id number] 40mg Take 1 [facility] 40 mg 4-29 tablet by [facility] tablet 00:00: mouth [place] 00 daily. [facility] pregabalin 0 Yes [id number] 150mg Take 1 [facility] 150 mg 4-29 capsule by [facility] capsule 00:00: mouth 3 00 (three) [facility] times [facility] daily. busPIRone 2021-0 Yes [id number] 20mg Take 2 [facility] [place] 10 mg 4-29 tablets by [facility] tablet 00:00: mouth 2 00 (two) [facility] times [facility] daily. citalopram 0 Yes [id number] 40mg Take 1 [facility] 40 mg 4-29 tablet by [facility] tablet 00:00: mouth [place] 00 daily. [facility] pregabalin 2021- No [id number] 150mg Take 1 [facility] 150 mg 4-29 10-13 capsule by [facility] capsule 00:00: 00:00 mouth 3 [place] 00 :00 (three) [facility] times [facility] daily. busPIRone 2021-2021- No [id number] 20mg Take 2 [facility] 10 mg 4-29 10-13 tablets by [facility] tablet 00:00: 00:00 mouth 2 [place] 00 :00 (two) [facility] times [facility] daily. pregabalin 2021-2021- No [id number] 150mg Take 1 [facility] 150 mg 4-29 10-13 capsule by [facility] capsule 00:00: 00:00 mouth 3 [place] 00 :00 (three) [facility] times [facility] daily. busPIRone 2021-2021- No [id number] 20mg Take 2 [facility] 10 mg 4-29 10-13 tablets by [facility] tablet 00:00: 00:00 mouth 2 [place] 00 :00 (two) [facility] times [facility] daily. pregabalin 2021-2021- No [id number] 150mg Take 1 [facility] 150 mg 4-29 10-13 capsule by [facility] capsule 00:00: 00:00 mouth 3 [place] 00 :00 (three) [facility] times [facility] daily. busPIRone 2021-2021- No [id number] 20mg Take 2 [facility] 10 mg 4-29 10-13 tablets by [facility] tablet 00:00: 00:00 mouth 2 [place] 00 :00 (two) [facility] times [facility] daily. pregabalin 2021-2021- No [id number] 150mg Take 1 [facility] 150 mg 4-29 10-13 capsule by [facility] capsule 00:00: 00:00 mouth 3 [place] 00 :00 (three) [facility] times [facility] daily. busPIRone 2021-2021- No [id number] 20mg Take 2 [facility] 10 mg 4-29 10-13 tablets by [facility] tablet 00:00: 00:00 mouth 2 [place] 00 :00 (two) [facility] times [facility] daily. pregabalin 2021-2021- No [id number] 150mg Take 1 [facility] 150 mg 4-29 10-13 capsule by [facility] capsule 00:00: 00:00 mouth 3 [place] 00 :00 (three) [facility] times [facility] daily. busPIRone 2021-2021- No [id number] 20mg Take 2 [facility] 10 mg 4-29 10-13 tablets by [facility] tablet 00:00: 00:00 mouth 2 [place] 00 :00 (two) [facility] times [facility] daily. pregabalin 2021- No [id number] 150mg Take 1 [facility] 150 mg 4-29 10-13 capsule by [facility] capsule 00:00: 00:00 mouth 3 [place] 00 :00 (three) [facility] times [facility] daily. busPIRone 2021- No [id number] 20mg Take 2 [facility] 10 mg 4-29 10-13 tablets by [facility] tablet 00:00: 00:00 mouth 2 [place] 00 :00 (two) [facility] times [facility] daily. amitriptyli 2021- No [id number] 100mg Take 2 [facility] ne 50 mg 4-29 05-24 tablets by [facility] tablet 00:00: 00:00 mouth at [place] 00 :00 bedtime. [facility] amitriptyli 2021- No [id number] 100mg Take 2 [facility] ne 50 mg 4-29 05-24 tablets by [facility] tablet 00:00: 00:00 mouth at [place] 00 :00 bedtime. [facility] pantoprazol Yes [id number] 40mg Take 1 [facility] e 40 mg EC 4-04 tablet by [facility] tablet 00:00: mouth [place] 00 daily. [facility] pantoprazol Yes [id number] 40mg Take 1 [facility] e 40 mg EC 4-04 tablet by [facility] tablet 00:00: mouth [place] 00 daily. [facility] pantoprazol Yes [id number] 40mg Take 1 [facility] e 40 mg EC 4-04 tablet by [facility] tablet 00:00: mouth [place] 00 daily. [facility] pantoprazol Yes [id number] 40mg Take 1 [facility] e 40 mg EC 4-04 tablet by [facility] tablet 00:00: mouth [place] 00 daily. [facility] pantoprazol Yes [id number] 40mg Take 1 [facility] e 40 mg EC 4-04 tablet by [facility] tablet 00:00: mouth [place] 00 daily. [facility] pantoprazol Yes [id number] 40mg Take 1 [facility] e 40 mg EC 4-04 tablet by [facility] tablet 00:00: mouth [place] 00 daily. [facility] pantoprazol Yes [id number] 40mg Take 1 [facility] e 40 mg EC 4-04 tablet by [facility] tablet 00:00: mouth [place] 00 daily. [facility] pantoprazol 2021-0 Yes [id number] 40mg Take 1 [facility] e 40 mg EC 4-04 tablet by [facility] tablet 00:00: mouth [place] 00 daily. [facility] pantoprazol 2021-0 Yes [id number] 40mg Take 1 [facility] e 40 mg EC 4-04 tablet by [facility] tablet 00:00: mouth [place] 00 daily. [facility] pantoprazol 2021-0 Yes [id number] 40mg Take 1 [facility] e 40 mg EC 4-04 tablet by [facility] tablet 00:00: mouth [place] 00 daily. [facility] pantoprazol 2021-0 Yes [id number] 40mg Take 1 [facility] e 40 mg EC 4-04 tablet by [facility] tablet 00:00: mouth [place] 00 daily. [facility] pantoprazol 2021-0 Yes [id number] 40mg Take 1 [facility] 40 mg EC 4-04 tablet by [facility] tablet 00:00: mouth [place] 00 daily. [facility] pantoprazol 2021-0 Yes [id number] 40mg Take 1 [facility] 40 mg EC 4-04 tablet by [facility] tablet 00:00: mouth [place] 00 daily. [facility] pantoprazol 2021-0 Yes [id number] 40mg Take 1 [facility] 40 mg EC 4-04 tablet by [facility] tablet 00:00: mouth [place] 00 daily. [facility] pantoprazol 2021-0 Yes [id number] 40mg Take 1 [facility] 40 mg EC 4-04 tablet by [facility] tablet 00:00: mouth [place] 00 daily. [facility] pantoprazol 2021-0 Yes [id number] 40mg Take 1 [facility] 40 mg EC 4-04 tablet by [facility] tablet 00:00: mouth [place] 00 daily. [facility] pantoprazol 2021-0 Yes [id number] 40mg Take 1 [facility] 40 mg EC 4-04 tablet by [facility] tablet 00:00: mouth [place] 00 daily. [facility] pantoprazol 2021-0 Yes [id number] 40mg Take 1 [facility] 40 mg EC 4-04 tablet by [facility] tablet 00:00: mouth [place] 00 daily. [facility] pantoprazol 2021-0 Yes [id number] 40mg Take 1 [facility] e 40 mg EC 4-04 tablet by ity of tablet 00:00: mouth [place] 00 daily. [facility] pantoprazol 2021-0 Yes [id number] 40mg Take 1 [facility] e 40 mg EC 4-04 tablet by ity of tablet 00:00: mouth [place] 00 daily. [facility] pantoprazol 0 Yes [id number] 40mg Take 1 [facility] e 40 mg EC 4-04 tablet by ity of tablet 00:00: mouth [place] 00 daily. [facility] pantoprazol 2021-0 Yes [id number] 40mg Take 1 [facility] e 40 mg EC 4-04 tablet by ity of tablet 00:00: mouth [place] 00 daily. [facility] pantoprazol 0 Yes [id number] 40mg Take 1 [facility] e 40 mg EC 4-04 tablet by ity of tablet 00:00: mouth [place] 00 daily. [facility] pantoprazol 0 Yes [id number] 40mg Take 1 [facility] e 40 mg EC 4-04 tablet by ity of tablet 00:00: mouth [place] 00 daily. [facility] pantoprazol 0 Yes [id number] 40mg Take 1 [facility] e 40 mg EC 4-04 tablet by ity of tablet 00:00: mouth [place] 00 daily. [facility] pantoprazol 0 Yes [id number] 40mg Take 1 [facility] e 40 mg EC 4-04 tablet by ity of tablet 00:00: mouth [place] 00 daily. [facility] pantoprazol 0 Yes [id number] 40mg Take 1 [facility] e 40 mg EC 4-04 tablet by ity of tablet 00:00: mouth [place] 00 daily. [facility] pantoprazol 2021-0 Yes [id number] 40mg Take 1 [facility] e 40 mg EC 4-04 tablet by ity of tablet 00:00: mouth [place] 00 daily. [facility] pantoprazol 2021-0 Yes [id number] 40mg Take 1 [facility] e 40 mg EC 4-04 tablet by ity of tablet 00:00: mouth [place] 00 daily. [facility] pantoprazol 2021-0 Yes [id number] 40mg Take 1 [facility] e 40 mg EC 4-04 tablet by ity of tablet 00:00: mouth [place] 00 daily. [facility] pantoprazol 2021- No [id number] 40mg Take 1 [facility] e 40 mg EC 4-04 09-16 tablet by ity of tablet 00:00: 00:00 mouth [place] 00 :00 daily. [facility] pantoprazol 2021- No [id number] 40mg Take 1 [facility] e 40 mg EC 12-28 tablet by ity of tablet 00:00: 00:00 mouth [place] 00 :00 daily. [facility] pantoprazol 2021- No [id number] 40mg Take 1 [facility] e 40 mg EC 12-28 tablet by ity of tablet 00:00: 00:00 mouth [place] 00 :00 daily. [facility] pantoprazol 2021- No [id number] 40mg Take 1 [facility] e 40 mg EC 12-28 tablet by ity of tablet 00:00: 00:00 mouth [place] 00 :00 daily. [facility] pantoprazol 2021- No [id number] 40mg Take 1 [facility] e 40 mg EC 12-28 tablet by ity of tablet 00:00: 00:00 mouth [place] 00 :00 daily. [facility] pantoprazol 2021- No [id number] 40mg Take 1 [facility] e 40 mg EC 12-28 tablet by ity of tablet 00:00: 00:00 mouth [place] 00 :00 daily. [facility] pantoprazol 2021- No [id number] 40mg Take 1 [facility] e 40 mg EC 12-28 tablet by ity of tablet 00:00: 00:00 mouth [place] 00 :00 daily. [facility] pantoprazol 2021- No [id number] 40mg Take 1 [facility] e 40 mg EC 12-28 tablet by ity of tablet 00:00: 00:00 mouth [place] 00 :00 daily. [facility] Branch Blood-Gluco Yes [id number] Use twice Univers se Meter 3-08 a day for ity of (ONETOUCH 00:00: [place] VERIO FLEX E11.65 Medical START) [facility] Branch Blood-Gluco 0 Yes [id number] Use twice Univers se Meter 3-08 a day for ity of (ONETOUCH 00:00: [place] VER[place] FLEX 00 E11.65 Medical START) [facility] [place] Blood-Gluco 0 Yes [id number] Use twice [facility] se Meter 3-08 a day for ity of (ONETOUCH 00:00: [place] VERIO FLEX Medical START) [facility] Blood-Gluco 2022-0 Yes [id number] Use twice [facility] se Meter 3-08 a day for ity of (ONETOUCH 00:00: [place] VERIO FLEX Medical START) [facility] Blood-Gluco 2022-0 Yes [id number] Use twice [facility] se Meter 3-08 a day for ity of (ONETOUCH 00:00: [place] VERIO FLEX Medical START) [facility] Blood-Gluco 2022-0 Yes [id number] Use twice [facility] se Meter 3-08 a day for ity of (ONETOUCH 00:00: [place] VERIO FLEX Medical START) Kit [facility] Blood-Gluco 2022-0 Yes [id number] Use twice [facility] se Meter 3-08 a day for ity of (ONETOUCH 00:00: [place] VERIO FLEX Medical START) Kit [facility] Blood-Gluco 2022-0 Yes [id number] Use twice [facility] se Meter 3-08 a day for ity of (ONETOUCH 00:00: [place] VERIO FLEX Medical START) Kit [facility] Blood-Gluco 2022-0 Yes [id number] Use twice [facility] se Meter 3-08 a day for ity of (ONETOUCH 00:00: [place] VERIO FLEX Medical START) Kit [facility] Blood-Gluco 2022-0 Yes [id number] Use twice [facility] se Meter 3-08 a day for ity of (ONETOUCH 00:00: [place] VERIO FLEX Medical START) Kit [facility] Blood-Gluco 2022-0 Yes [id number] Use twice [facility] se Meter 3-08 a day for ity of (ONETOUCH 00:00: [place] VERIO FLEX Medical START) [facility] Blood-Gluco 2022-0 Yes [id number] Use twice [facility] se Meter 3-08 a day for ity of (ONETOUCH 00:00: ICD [place] VERIO FLEX Medical START) Kit [facility] Blood-Gluco 2022-0 Yes [id number] Use twice [facility] se Meter 3-08 a day for ity of (ONETOUCH 00:00: ICD [place] VERIO FLEX Medical START) Kit [facility] Blood-Gluco 2022-0 Yes [id number] Use twice [facility] se Meter 3-08 a day for ity of (ONETOUCH 00:00: [place] VERIO FLEX Medical START) Kit [facility] Blood-Gluco 2022-0 Yes [id number] Use twice [facility] se Meter 3-08 a day for ity of (ONETOUCH 00:00: [place] VERIO FLEX Medical START) Kit [facility] Blood-Gluco 2022-0 Yes [id number] Use twice [facility] se Meter 3-08 a day for ity of (ONETOUCH 00:00: ICD [place] VERIO FLEX Medical START) Kit [facility] Blood-Gluco 2022-0 Yes [id number] Use twice [facility] se Meter 3-08 a day for ity of (ONETOUCH 00:00: ICD [place] VERIO FLEX Medical START) Kit [facility] Blood-Gluco 2022-0 Yes [id number] Use twice [facility] se Meter 3-08 a day for ity of (ONETOUCH 00:00: [place] VERIO FLEX Medical START) Kit [facility] Blood-Gluco 2022-0 Yes [id number] Use twice [facility] se Meter 3-08 a day for ity of (ONETOUCH 00:00: ICD [place] VERIO FLEX E11. Medical START) Kit [facility] Blood-Gluco 2022-0 Yes [id number] Use twice [facility] se Meter 3-08 a day for ity of (ONETOUCH 00:00: ICD [place] VERIO FLEX E11.65 Medical START) Kit Branch Blood-Gluco 2022-0 Yes [id number] Use twice [facility] se Meter 3-08 a day for ity of (ONETOUCH 00:00: [place] VERIO FLEX E11.65 Medical START) Kit [facility] Blood-Gluco 2022-0 Yes [id number] Use twice [facility] se Meter 3-08 a day for ity of (ONETOUCH 00:00: [place] VERIO FLEX Medical START) Kit [facility] Blood-Gluco 2022-0 Yes [id number] Use twice [facility] se Meter 3-08 a day for ity of (ONETOUCH 00:00: [place] VERIO FLEX Medical START) Kit [facility] Blood-Gluco 2022-0 Yes [id number] Use twice [facility] se Meter 3-08 a day for ity of (ONETOUCH 00:00: [place] VERIO FLEX Medical START) Kit [facility] Blood-Gluco 2022-0 Yes [id number] Use twice [facility] se Meter 3-08 a day for ity of (ONETOUCH 00:00: ICD [place] VERIO FLEX Medical START) Kit [facility] Blood-Gluco 2022-0 Yes [id number] Use twice [facility] se Meter 3-08 a day for ity of (ONETOUCH 00:00: ICD [place] VERIO FLEX Medical START) Kit [facility] Blood-Gluco 2022-0 Yes [id number] Use twice [facility] se Meter 3-08 a day for ity of (ONETOUCH 00:00: ICD [place] VERIO FLEX Medical START) Kit [facility] Blood-Gluco 2022-0 Yes [id number] Use twice [facility] se Meter 3-08 a day for ity of (ONETOUCH 00:00: ICD [place] VERIO FLEX Medical START) Kit [facility] Blood-Gluco 2022-0 Yes [id number] Use twice [facility] se Meter 3-08 a day for ity of (ONETOUCH 00:00: ICD [place] VERIO FLEX Medical START) Kit [facility] Blood-Gluco 2022-0 Yes [id number] Use twice [facility] se Meter 3-08 a day for ity of (ONETOUCH 00:00: ICD [place] VERIO FLEX Medical START) Kit [facility] Blood-Gluco 2022-0 Yes [id number] Use twice [facility] se Meter 3-08 a day for ity of (ONETOUCH 00:00: ICD [place] VERIO FLEX Medical START) Kit [facility] Blood-Gluco 2022-0 Yes [id number] Use twice [facility] se Meter 3-08 a day for ity of (ONETOUCH 00:00: ICD [place] VERIO FLEX Medical START) Kit [facility] Blood-Gluco 2022-0 Yes [id number] Use twice [facility] se Meter 3-08 a day for ity of (ONETOUCH 00:00: ICD [place] VERIO FLEX Medical START) Kit [facility] Blood-Gluco 2022-0 Yes [id number] Use twice [facility] se Meter 3-08 a day for ity of (ONETOUCH 00:00: ICD [place] VERIO FLEX Medical START) Kit [facility] Blood-Gluco 2022-0 Yes [id number] Use twice [facility] se Meter 3-08 a day for ity of (ONETOUCH 00:00: ICD [place] VERIO FLEX START) Kit [facility] Blood-Gluco 2022-0 Yes [id number] Use twice [facility] se Meter 3-08 a day for ity of (ONETOUCH 00:00: [place] VERIO FLEX Medical START) [facility] Blood-Gluco 2022-0 2- No [id number] Use twice [facility] se Meter 3-08 -22 a day for ity o f (ONETOUCH 00:00: 00:00 ICD CODE [place] VERIO FLEX 00 : START) Kit [facility] Blood-Gluco 2022-0 2022- No [id number] Use twice [facility] se Meter 3-08 -22 a day for ity o f (ONETOUCH 00:00: 00:00 ICD CODE [place] VERIO FLEX 00 : Medical START) Kit [facility] Blood-Gluco 2022-0 2- No [id number] Use twice Univers se Meter 3-08 -22 a day for ity o f (ONETOUCH 00:00: 00:00 ICD CODE [place] VERIO FLEX 00 : Medical START) Kit [facility] Blood-Gluco 2022-0 2022- No [id number] Use twice [facility] se Meter 3-08 -22 a day for ity o f (ONETOUCH 00:00: 00:00 ICD CODE [place] VERIO FLEX 00 : Medical START) Kit [facility] Blood-Gluco 2022-0 2022- No [id number] Use twice Univers se Meter 3-05 04- a day for ity o f (ONETOUCH 00:00: 00:00 ICD CODE [place] VERIO FLEX 00 : START) [facility] Blood-Gluco 2021-2021- No [id number] Use twice Univers se Meter 3-05 04- a day for ity o f (ONETOUCH 00:00: 00:00 ICD CODE [place] VERIO FLEX 00 : START) [facility] Blood-Gluco 2021-2021- No [id number] Use twice Univers se Meter 3-05 04- a day for ity o f (ONETOUCH 00:00: 00:00 ICD CODE [place] VERIO FLEX 00 : START) [facility] Blood-Gluco 2021-2021- No [id number] Use twice Univers se Meter 3-06-17 a day for ity o f (ONETOUCH 00:00: 00:00 ICD CODE [place] VERIO FLEX 00 :00 START) [facility] Blood-Gluco 2021- No [id number] Use twice Univers se Meter 3-05 04- a day for ity o f (ONETOUCH 00:00: 00:00 ICD CODE [place] VERIO FLEX 00 : START) [facility] Blood-Gluco 2021- No [id number] Use twice Univers se Meter 306-17 a day for ity o f (ONETOUCH 00:00: 00:00 ICD CODE [place] VERIO FLEX 00 :00 START) [facility] sucralfate 2021-2021- No [id number] 1g Take 1 Univers 1 gram 2-20 05-24 tablet by ity of tablet 00:00: 00:00 mouth [place] 00 :00 before Medical meals and Branch at bedtime. sucralfate 2021-0 2021- No [id number] 1g Take 1 Univers 1 gram 2-20 05-24 tablet by ity of tablet 00:00: 00:00 mouth [place] 00 :00 before Medical meals and Branch at bedtime. sucralfate 2021-2021- No [id number] 1g Take 1 Univers 1 gram 2-20 05-24 tablet by ity of tablet 00:00: 00:00 mouth [place] 00 :00 before Medical meals and Branch at bedtime. sucralfate 2021- No [id number] 1g Take 1 Univers 1 gram 2-20 05-24 tablet by ity of tablet 00:00: 00:00 mouth [place] 00 :00 before Medical meals and Branch at bedtime. sucralfate 2021- No [id number] 1g Take 1 Univers 1 gram 2-20 05-24 tablet by ity of tablet 00:00: 00:00 mouth [place] 00 :00 before Medical meals and Branch at bedtime. [place] 2021- No [id number] To use Uni vers Device with - 05-24 twice a ity of Lancets 00:00: 00:00 day for [place] (ONE TOUCH 00 :00 ICD code Medic al DELICA) Kit E11.65 Branch blood sugar 2021- No [id number] Use twice Univers diagnostic 2-24 a day for ity of (ONETOUCH 00:00: 00:00 ICD CODE [place] VERIO TEST 00 :00 E11.65 Medical STRIPS) Branch strip [place] 2021- No [id number] To use Uni vers Device with 11-03-24 twice a ity of Lancets 00:00: 00:00 day for [place] (ONE TOUCH 00 :00 ICD code Medic al DELICA) Kit E11.65 Branch blood sugar 2021- No [id number] Use twice Univers diagnostic 11-03-24 a day for ity of (ONETOUCH 00:00: 00:00 ICD CODE [place] VERIO TEST 00 :00 E11.65 Medical STRIPS) Branch strip [place] 2021- No [id number] To use Uni vers Device with 11-03 05-24 twice a ity of Lancets 00:00: 00:00 day for [place] (ONE TOUCH 00 :00 ICD code Medic al DELICA) Kit E11.65 Branch blood sugar 2021- No [id number] Use twice Univers diagnostic 2- 05-24 a day for ity of (ONETOUCH 00:00: 00:00 ICD CODE [place] VERIO TEST 00 :00 E11.65 Medical STRIPS) Branch strip [place] 2021- No [id number] To use Uni vers Device with 2- 05-24 twice a ity of Lancets 00:00: 00:00 day for [place] (ONE TOUCH 00 :00 ICD code Medic al DELICA) Kit E11.65 Branch blood sugar 2021- No [id number] Use twice Univers diagnostic 2-24 a day for ity of (ONETOUCH 00:00: 00:00 ICD CODE [place] VERIO TEST 00 :00 E11.65 Medical STRIPS) Branch strip [place] 2021- No [id number] To use Uni vers Device with - 05-24 twice a ity of Lancets 00:00: 00:00 day for [place] (ONE TOUCH 00 :00 ICD code Medic al DELICA) Kit E11.65 Branch blood sugar 2021- No [id number] Use twice Univers diagnostic 2-24 a day for ity of (ONETOUCH 00:00: 00:00 ICD CODE [place] VERIO TEST 00 :00 E11.65 Medical STRIPS) Branch strip mirabegron Yes [id number] 50mg Take 1 Univers (MYRBETRIQ) 1-18 tablet by ity of 50 mg 00:00: mouth [place] tablet 00 daily. Medical Branch mirabegron Yes [id number] 50mg Take 1 Univers (MYRBETRIQ) 1-18 tablet by ity of 50 mg 00:00: mouth [place] tablet 00 daily. Medical Branch mirabegron Yes [id number] 50mg Take 1 Univers (MYRBETRIQ) 1-18 tablet by ity of 50 mg 00:00: mouth [place] tablet 00 daily. Medical Branch mirabegron Yes [id number] 50mg Take 1 Univers (MYRBETRIQ) 1-18 tablet by ity of 50 mg 00:00: mouth [place] tablet 00 daily. Medical Branch mirabegron Yes [id number] 50mg Take 1 Univers (MYRBETRIQ) 1-18 tablet by ity of 50 mg 00:00: mouth [place] tablet 00 daily. Medical Branch mirabegron 0 Yes [id number] 50mg Take 1 Univers (MYRBETRIQ) 1-18 tablet by ity of 50 mg 00:00: mouth [place] tablet 00 daily. [facility] mirabegron 2021-0 Yes [id number] 50mg Take 1 Univers (MYRBETRIQ) 1-18 tablet by ity of 50 mg 00:00: mouth [place] tablet 00 daily. [facility] mirabegron 2021-0 Yes [id number] 50mg Take 1 Univers (MYRBETRIQ) 1-18 tablet by ity of 50 mg 00:00: mouth [place] tablet 00 daily. [facility] mirabegron 0 Yes [id number] 50mg Take 1 Univers (MYRBETRIQ) 1-18 tablet by ity of 50 mg 00:00: mouth [place] tablet 00 daily. [facility] mirabegron 0 Yes [id number] 50mg Take 1 Univers (MYRBETRIQ) 1-18 tablet by ity of 50 mg 00:00: mouth [place] tablet 00 daily. [facility] mirabegron 0 Yes [id number] 50mg Take 1 Univers (MYRBETRIQ) 1-18 tablet by ity of 50 mg 00:00: mouth [place] tablet 00 daily. [facility] mirabegron 0 Yes [id number] 50mg Take 1 Univers (MYRBETRIQ) 1-18 tablet by ity of 50 mg 00:00: mouth [place] tablet 00 daily. [facility] mirabegron 0 Yes [id number] 50mg Take 1 Univers (MYRBETRIQ) 1-18 tablet by ity of 50 mg 00:00: mouth [place] tablet 00 daily. [facility] mirabegron 0 Yes [id number] 50mg Take 1 Univers (MYRBETRIQ) 1-18 tablet by ity of 50 mg 00:00: mouth [place] tablet 00 daily. [facility] mirabegron 0 Yes [id number] 50mg Take 1 Univers (MYRBETRIQ) 1-18 tablet by ity of 50 mg 00:00: mouth [place] tablet 00 daily. [facility] mirabegron 0 Yes [id number] 50mg Take 1 Univers (MYRBETRIQ) 1-18 tablet by ity of 50 mg 00:00: mouth [place] tablet 00 daily. [facility] mirabegron 2021-0 Yes [id number] 50mg Take 1 Univers (MYRBETRIQ) 1-18 tablet by ity of 50 mg 00:00: mouth [place] tablet 00 daily. [facility] Branch mirabegron 0 Yes [id number] 50mg Take 1 Univers (MYRBETRIQ) 1-18 tablet by ity of 50 mg 00:00: mouth [place] tablet 00 daily. [facility] Branch mirabegron 0 Yes [id number] 50mg Take 1 Univers (MYRBETRIQ) 1-18 tablet by ity of 50 mg 00:00: mouth [place] tablet 00 daily. [facility] Branch mirabegron 0 Yes [id number] 50mg Take 1 Univers (MYRBETRIQ) 1-18 tablet by ity of 50 mg 00:00: mouth [place] tablet 00 daily. [facility] mirabegron 0 Yes [id number] 50mg Take 1 Univers (MYRBETRIQ) 1-18 tablet by ity of 50 mg 00:00: mouth [place] tablet 00 daily. [facility] mirabegron 0 Yes [id number] 50mg Take 1 Univers (MYRBETRIQ) 1-18 tablet by ity of 50 mg 00:00: mouth [place] tablet 00 daily. [facility] mirabegron 0 Yes [id number] 50mg Take 1 Univers (MYRBETRIQ) 1-18 tablet by ity of 50 mg 00:00: mouth [place] tablet 00 daily. [facility] mirabegron 0 Yes [id number] 50mg Take 1 Univers (MYRBETRIQ) 1-18 tablet by ity of 50 mg 00:00: mouth [place] tablet 00 daily. [facility] mirabegron 0 Yes [id number] 50mg Take 1 Univers (MYRBETRIQ) 1-18 tablet by ity of 50 mg 00:00: mouth [place] tablet 00 daily. [facility] mirabegron 0 Yes [id number] 50mg Take 1 Univers (MYRBETRIQ) 1-18 tablet by ity of 50 mg 00:00: mouth [place] tablet 00 daily. [facility] mirabegron 0 Yes [id number] 50mg Take 1 Univers (MYRBETRIQ) 1-18 tablet by ity of 50 mg 00:00: mouth [place] tablet 00 daily. [facility] mirabegron 0 Yes [id number] 50mg Take 1 Univers (MYRBETRIQ) 1-18 tablet by ity of 50 mg 00:00: mouth [place] tablet 00 daily. [facility] Branch mirabegron 0 Yes [id number] 50mg Take 1 Univers (MYRBETRIQ) 1-18 tablet by ity of 50 mg 00:00: mouth [place] tablet 00 daily. [facility] mirabegron 0 Yes [id number] 50mg Take 1 Univers (MYRBETRIQ) 1-18 tablet by ity of 50 mg 00:00: mouth [place] tablet 00 daily. [facility] mirabegron 0 Yes [id number] 50mg Take 1 Univers (MYRBETRIQ) 1-18 tablet by ity of 50 mg 00:00: mouth [place] tablet 00 daily. [facility] mirabegron Yes [id number] 50mg Take 1 Univers (MYRBETRIQ) 1-18 tablet by ity of 50 mg 00:00: mouth [place] tablet 00 daily. [facility] mirabegron Yes [id number] 50mg Take 1 Univers (MYRBETRIQ) 1-18 tablet by ity of 50 mg 00:00: mouth [place] tablet 00 daily. [facility] mirabegron Yes [id number] 50mg Take 1 Univers (MYRBETRIQ) 1-18 tablet by ity of 50 mg 00:00: mouth [place] tablet 00 daily. [facility] mirabegron Yes [id number] 50mg Take 1 Univers (MYRBETRIQ) 1-18 tablet by ity of 50 mg 00:00: mouth [place] tablet 00 daily. [facility] mirabegron 0 Yes [id number] 50mg Take 1 Univers (MYRBETRIQ) 1-18 tablet by ity of 50 mg 00:00: mouth [place] tablet 00 daily. [facility] Branch mirabegron 0 Yes [id number] 50mg Take 1 Univers (MYRBETRIQ) 1-18 tablet by ity of 50 mg 00:00: mouth [place] tablet 00 daily. [facility] mirabegron Yes [id number] 50mg Take 1 Univers (MYRBETRIQ) 1-18 tablet by ity of 50 mg 00:00: mouth [place] tablet 00 daily. [facility] mirabegron 0 Yes [id number] 50mg Take 1 Univers (MYRBETRIQ) 1-18 tablet by ity of 50 mg 00:00: mouth [place] tablet 00 daily. [facility] mirabegron 0 Yes [id number] 50mg Take 1 Univers (MYRBETRIQ) 1-18 tablet by ity of 50 mg 00:00: mouth [place] tablet 00 daily. [facility] mirabegron 0 Yes [id number] 50mg Take 1 Univers (MYRBETRIQ) 1-18 tablet by ity of 50 mg 00:00: mouth [place] tablet 00 daily. [facility] mirabegron 0 Yes [id number] 50mg Take 1 Univers (MYRBETRIQ) 1-18 tablet by ity of 50 mg 00:00: mouth [place] tablet 00 daily. [facility] mirabegron 0 Yes [id number] 50mg Take 1 Univers (MYRBETRIQ) 1-18 tablet by ity of 50 mg 00:00: mouth [place] tablet 00 daily. [facility] mirabegron 0 Yes [id number] 50mg Take 1 Univers (MYRBETRIQ) 1-18 tablet by ity of 50 mg 00:00: mouth [place] tablet 00 daily. [facility] mirabegron 0 Yes [id number] 50mg Take 1 Univers (MYRBETRIQ) 1-18 tablet by ity of 50 mg 00:00: mouth [place] tablet 00 daily. [facility] mirabegron 0 Yes [id number] 50mg Take 1 Univers (MYRBETRIQ) 1-18 tablet by ity of 50 mg 00:00: mouth [place] tablet 00 daily. [facility] mirabegron 0 Yes [id number] 50mg Take 1 Univers (MYRBETRIQ) 1-18 tablet by ity of 50 mg 00:00: mouth [place] tablet 00 daily. [facility] mirabegron 0 Yes [id number] 50mg Take 1 Univers (MYRBETRIQ) 1-18 tablet by ity of 50 mg 00:00: mouth [place] tablet 00 daily. [facility] mirabegron 0 2021- No [id number] 50mg Take 1 Univers (MYRBETRIQ) 1-18 10-13 tablet by it y of 50 mg 00:00: 00:00 mouth [place] tablet 00 :00 daily. [facility] mirabegron 2021- No [id number] 50mg Take 1 Univers (MYRBETRIQ) 1-18 10-13 tablet by it y of 50 mg 00:00: 00:00 mouth [place] tablet 00 :00 daily. [facility] mirabegron 2- No [id number] 50mg Take 1 Univers (MYRBETRIQ) 1-18 10-13 tablet by it y of 50 mg 00:00: 00:00 mouth [place] tablet 00 :00 daily. [facility] mirabegron 2021- No [id number] 50mg Take 1 Univers (MYRBETRIQ) 1-18 10-13 tablet by it y of 50 mg 00:00: 00:00 mouth [place] tablet 00 :00 daily. [facility] mirabegron 2021- No [id number] 50mg Take 1 Univers (MYRBETRIQ) 1-18 10-13 tablet by it y of 50 mg 00:00: 00:00 mouth [place] tablet 00 :00 daily. [facility] mirabegron 2021- No [id number] 50mg Take 1 Univers (MYRBETRIQ) 1-18 10-13 tablet by it y of 50 mg 00:00: 00:00 mouth [place] tablet 00 :00 daily. [facility] mirabegron 2021- No [id number] 50mg Take 1 Univers (MYRBETRIQ) 1-18 10-13 tablet by it y of 50 mg 00:00: 00:00 mouth [place] tablet 00 :00 daily. [facility] mirabegron 2021- No [id number] 50mg Take 1 Univers (MYRBETRIQ) 1-18 10-13 tablet by it y of 50 mg 00:00: 00:00 mouth [place] tablet 00 :00 daily. [facility] mirabegron 2021- No [id number] 50mg Take 1 Univers (MYRBETRIQ) 1-18 10-13 tablet by it y of 50 mg 00:00: 00:00 mouth [place] tablet 00 :00 daily. [facility] mirabegron 2- No [id number] 50mg Take 1 Univers (MYRBETRIQ) 1-18 10-13 tablet by it y of 50 mg 00:00: 00:00 mouth [place] tablet 00 :00 daily. Medical Branch semaglutide 2020-09 Yes [id number] Inject Univers (OZEMPIC) 2-01 0.25 mg ity of 0.25 mg or 00:00: under the [place] 0.5 mg(2 00 skin Medical mg/1.5 mL) weekly. Branch [facility] semaglutide 2020-09 Yes [id number] Inject Univers (OZEMPIC) 2-01 0.25 mg ity of 0.25 mg or 00:00: under the [place] 0.5 mg(2 00 skin Medical mg/1.5 mL) weekly. Branch [facility] semaglutide 2020-09 Yes [id number] Inject Univers (OZEMPIC) 2-01 0.25 mg ity of 0.25 mg or 00:00: under the [place] 0.5 mg(2 00 skin Medical mg/1.5 mL) weekly. Branch [facility] semaglutide 2020-09 Yes [id number] Inject Univers (OZEMPIC) 2-01 0.25 mg ity of 0.25 mg or 00:00: under the [place] 0.5 mg(2 00 skin Medical mg/1.5 mL) weekly. Branch [facility] semaglutide 2020-09 Yes [id number] Inject Univers (OZEMPIC) 2-01 0.25 mg ity of 0.25 mg or 00:00: under the [place] 0.5 mg(2 00 skin Medical mg/1.5 mL) weekly. Branch [facility] semaglutide 2020-09 Yes [id number] Inject Univers (OZEMPIC) 2-01 0.25 mg ity of 0.25 mg or 00:00: under the [place] 0.5 mg(2 00 skin Medical mg/1.5 mL) weekly. Branch [facility] semaglutide 2020-09 Yes [id number] Inject Univers (OZEMPIC) 2-01 0.25 mg ity of 0.25 mg or 00:00: under the [place] 0.5 mg(2 00 skin Medical mg/1.5 mL) weekly. Branch [facility] semaglutide 2020-09 Yes [id number] Inject Univers (OZEMPIC) 2-01 0.25 mg ity of 0.25 mg or 00:00: under the [place] 0.5 mg(2 00 skin Medical mg/1.5 mL) weekly. Branch [facility] semaglutide 2020-09 Yes [id number] Inject [facility] (OZEMPIC) 2-01 0.25 mg ity of 0.25 mg or 00:00: under the [place] 0.5 mg(2 00 skin Medical mg/1.5 mL) weekly. Branch [facility] semaglutide 2020-09 Yes [id number] Inject [facility] (OZEMPIC) 2-01 0.25 mg ity of 0.25 mg or 00:00: under the [place] 0.5 mg(2 00 skin Medical mg/1.5 mL) weekly. Branch PnIj semaglutide 2020-09 Yes [id number] Inject [facility] (OZEMPIC) 2-01 0.25 mg ity of 0.25 mg or 00:00: under the [place] 0.5 mg(2 00 skin Medical mg/1.5 mL) weekly. Branch PnIj semaglutide 2020-09 Yes [id number] Inject [facility] (OZEMPIC) 2-01 0.25 mg ity of 0.25 mg or 00:00: under the [place] 0.5 mg(2 00 skin Medical mg/1.5 mL) weekly. Branch PnIj semaglutide 2020-09 Yes [id number] Inject [facility] (OZEMPIC) 2-01 0.25 mg ity of 0.25 mg or 00:00: under the [place] 0.5 mg(2 00 skin Medical mg/1.5 mL) weekly. Branch PnIj semaglutide 2020-09 Yes [id number] Inject [facility] (OZEMPIC) 2-01 0.25 mg ity of 0.25 mg or 00:00: under the [place] 0.5 mg(2 00 skin Medical mg/1.5 mL) weekly. Branch PnIj semaglutide 2020-09 Yes [id number] Inject [facility] (OZEMPIC) 2-01 0.25 mg ity of 0.25 mg or 00:00: under the [place] 0.5 mg(2 00 skin Medical mg/1.5 mL) weekly. Branch PnIj semaglutide 2020-09 Yes [id number] Inject [facility] (OZEMPIC) 2-01 0.25 mg ity of 0.25 mg or 00:00: under the [place] 0.5 mg(2 00 skin Medical mg/1.5 mL) weekly. Branch PnIj semaglutide 2020-09 Yes [id number] Inject [facility] (OZEMPIC) 2-01 0.25 mg ity of 0.25 mg or 00:00: under the [place] 0.5 mg(2 00 skin Medical mg/1.5 mL) weekly. Branch PnIj semaglutide 2020-09 Yes [id number] Inject [facility] (OZEMPIC) 2-01 0.25 mg ity of 0.25 mg or 00:00: under the [place] 0.5 mg(2 00 skin Medical mg/1.5 mL) weekly. Branch PnIj semaglutide 2020-09 Yes [id number] Inject [facility] (OZEMPIC) 2-01 0.25 mg ity of 0.25 mg or 00:00: under the [place] 0.5 mg(2 00 skin Medical mg/1.5 mL) weekly. Branch PnIj semaglutide 2020-09 Yes [id number] Inject [facility] (OZEMPIC) 2-01 0.25 mg ity of 0.25 mg or 00:00: under the [place] 0.5 mg(2 00 skin Medical mg/1.5 mL) weekly. Branch PnIj semaglutide 2020-09 Yes [id number] Inject [facility] (OZEMPIC) 2-01 0.25 mg ity of 0.25 mg or 00:00: under the [place] 0.5 mg(2 00 skin Medical mg/1.5 mL) weekly. Branch PnIj semaglutide 2020-09 Yes [id number] Inject [facility] (OZEMPIC) 2-01 0.25 mg ity of 0.25 mg or 00:00: under the [place] 0.5 mg(2 00 skin Medical mg/1.5 mL) weekly. Branch PnIj semaglutide 2020-09 Yes [id number] Inject [facility] (OZEMPIC) 2-01 0.25 mg ity of 0.25 mg or 00:00: under the [place] 0.5 mg(2 00 skin Medical mg/1.5 mL) weekly. Branch PnIj semaglutide 2020-09 Yes [id number] Inject [facility] (OZEMPIC) 2-01 0.25 mg ity of 0.25 mg or 00:00: under the [place] 0.5 mg(2 00 skin Medical mg/1.5 mL) weekly. Branch PnIj semaglutide 2020-09 Yes [id number] Inject [facility] (OZEMPIC) 2-01 0.25 mg ity of 0.25 mg or 00:00: under the [place] 0.5 mg(2 00 skin Medical mg/1.5 mL) weekly. Branch PnIj semaglutide 2020-09 Yes [id number] Inject [facility] (OZEMPIC) 2-01 0.25 mg ity of 0.25 mg or 00:00: under the [place] 0.5 mg(2 00 skin Medical mg/1.5 mL) weekly. Branch PnIj semaglutide 2020-09 Yes [id number] Inject [facility] (OZEMPIC) 2-01 0.25 mg ity of 0.25 mg or 00:00: under the [place] 0.5 mg(2 00 skin Medical mg/1.5 mL) weekly. Branch PnIj semaglutide 2020-09 Yes [id number] Inject [facility] (OZEMPIC) 2-01 0.25 mg ity of 0.25 mg or 00:00: under the [place] 0.5 mg(2 00 skin Medical mg/1.5 mL) weekly. Branch PnIj semaglutide 2020-09 Yes [id number] Inject [facility] (OZEMPIC) 2-01 0.25 mg ity of 0.25 mg or 00:00: under the [place] 0.5 mg(2 00 skin Medical mg/1.5 mL) weekly. Branch PnIj semaglutide 2020-09 Yes [id number] Inject [facility] (OZEMPIC) 2-01 0.25 mg ity of 0.25 mg or 00:00: under the [place] 0.5 mg(2 00 skin Medical mg/1.5 mL) weekly. Branch PnIj semaglutide 2020-09 Yes [id number] Inject [facility] (OZEMPIC) 2-01 0.25 mg ity of 0.25 mg or 00:00: under the [place] 0.5 mg(2 00 skin Medical mg/1.5 mL) weekly. Branch PnIj semaglutide 2020-09 Yes [id number] Inject [facility] (OZEMPIC) 2-01 0.25 mg ity of 0.25 mg or 00:00: under the [place] 0.5 mg(2 00 skin Medical mg/1.5 mL) weekly. Branch PnIj semaglutide 2020-09 Yes [id number] Inject [facility] (OZEMPIC) 2-01 0.25 mg ity of 0.25 mg or 00:00: under the [place] 0.5 mg(2 00 skin Medical mg/1.5 mL) weekly. Branch PnIj semaglutide 2020-09 Yes [id number] Inject [facility] (OZEMPIC) 2-01 0.25 mg ity of 0.25 mg or 00:00: under the [place] 0.5 mg(2 00 skin Medical mg/1.5 mL) weekly. Branch PnIj semaglutide 2020-09 Yes [id number] Inject [facility] (OZEMPIC) 2-01 0.25 mg ity of 0.25 mg or 00:00: under the [place] 0.5 mg(2 00 skin Medical mg/1.5 mL) weekly. Branch PnIj semaglutide 2020-09 Yes [id number] Inject [facility] (OZEMPIC) 2-01 0.25 mg ity of 0.25 mg or 00:00: under the [place] 0.5 mg(2 00 skin Medical mg/1.5 mL) weekly. Branch PnIj semaglutide 2020-09 Yes [id number] Inject [facility] (OZEMPIC) 2-01 0.25 mg ity of 0.25 mg or 00:00: under the [place] 0.5 mg(2 00 skin Medical mg/1.5 mL) weekly. Branch PnIj semaglutide 2020-09 Yes [id number] Inject [facility] (OZEMPIC) 2-01 0.25 mg ity of 0.25 mg or 00:00: under the [place] 0.5 mg(2 00 skin Medical mg/1.5 mL) weekly. Branch PnIj semaglutide 2020-09 Yes [id number] Inject [facility] (OZEMPIC) 2-01 0.25 mg ity of 0.25 mg or 00:00: under the [place] 0.5 mg(2 00 skin Medical mg/1.5 mL) weekly. Branch PnIj semaglutide 2020-09 Yes [id number] Inject [facility] (OZEMPIC) 2-01 0.25 mg ity of 0.25 mg or 00:00: under the [place] 0.5 mg(2 00 skin Medical mg/1.5 mL) weekly. Branch PnIj semaglutide 2020-09 Yes [id number] Inject [facility] (OZEMPIC) 2-01 0.25 mg ity of 0.25 mg or 00:00: under the [place] 0.5 mg(2 00 skin Medical mg/1.5 mL) weekly. Branch PnIj semaglutide 2020-09 Yes [id number] Inject [facility] (OZEMPIC) 2-01 0.25 mg ity of 0.25 mg or 00:00: under the [place] 0.5 mg(2 00 skin Medical mg/1.5 mL) weekly. Branch PnIj semaglutide 2020-09 Yes [id number] Inject [facility] (OZEMPIC) 2-01 0.25 mg ity of 0.25 mg or 00:00: under the [place] 0.5 mg(2 00 skin Medical mg/1.5 mL) weekly. Branch PnIj semaglutide 2020-09 Yes [id number] Inject [facility] (OZEMPIC) 2-01 0.25 mg ity of 0.25 mg or 00:00: under the [place] 0.5 mg(2 00 skin Medical mg/1.5 mL) weekly. Branch PnIj semaglutide 2020-09 Yes [id number] Inject [facility] (OZEMPIC) 2-01 0.25 mg ity of 0.25 mg or 00:00: under the [place] 0.5 mg(2 00 skin Medical mg/1.5 mL) weekly. Branch PnIj semaglutide 2020-09 Yes [id number] Inject [facility] (OZEMPIC) 2-01 0.25 mg ity of 0.25 mg or 00:00: under the [place] 0.5 mg(2 00 skin Medical mg/1.5 mL) weekly. Branch PnIj semaglutide 2020-09 Yes [id number] Inject [facility] (OZEMPIC) 2-01 0.25 mg ity of 0.25 mg or 00:00: under the [place] 0.5 mg(2 00 skin Medical mg/1.5 mL) weekly. Branch [place] semaglutide 2020-09 Yes [id number] Inject [facility] (OZEMPIC) 10-27 0.25 mg ity of 0.25 mg or 00:00: under the [place] 0.5 mg(2 00 skin Medical mg/1.5 mL) weekly. [place]avonne Rutherford semaglutide 2020-09- No [id number] Inject [facility] (OZEMPIC) 10-27 0.25 mg ity of 0.25 mg or 00:00: 00:00 under the [place] 0.5 mg(2 00 :00 skin Medical mg/1.5 mL) weekly. Shavonne Rutherford semaglutide 2020-09- No [id number] Inject [facility] (OZEMPIC) 10-27 0.25 mg ity of 0.25 mg or 00:00: 00:00 under the [place] 0.5 mg(2 00 :00 skin Medical mg/1.5 mL) weekly. Shavonne Rutherford semaglutide 2020-09- No [id number] Inject [facility] (OZEMPIC) 10-27 0.25 mg ity of 0.25 mg or 00:00: 00:00 under the [place] 0.5 mg(2 00 :00 skin Medical mg/1.5 mL) weekly. Shavonne Rutherford semaglutide 2020-09- No [id number] Inject [facility] (OZEMPIC) 10-27 0.25 mg ity of 0.25 mg or 00:00: 00:00 under the [place] 0.5 mg(2 00 :00 skin Medical mg/1.5 mL) weekly. Shavonne Rutherford semaglutide 2020-09- No [id number] Inject [facility] (OZEMPIC) 10-27- 0.25 mg ity of 0.25 mg or 00:00: 00:00 under the [place] 0.5 mg(2 00 :00 skin Medical mg/1.5 mL) weekly. Shavonne Rutherford semaglutide 2020-09- No [id number] Inject [facility] (OZEMPIC) 10-27 0.25 mg ity of 0.25 mg or 00:00: 00:00 under the [place] 0.5 mg(2 00 :00 skin Medical mg/1.5 mL) weekly. Shavonne Rutherford semaglutide 2020-09- No [id number] Inject [facility] (OZEMPIC) 10-27 0.25 mg ity of 0.25 mg or 00:00: 00:00 under the [place] 0.5 mg(2 00 :00 skin Medical mg/1.5 mL) weekly. [place] Sange[place] semaglutide 2020-09- No [id number] Inject [facility] (OZEMPIC) 10-27 0.25 mg ity of 0.25 mg or 00:00: 00:00 under the [place] 0.5 mg(2 00 :00 skin Medical mg/1.5 mL) weekly. Shavonne Rutherford semaglutide 2020-09- No [id number] Inject [facility] (OZEMPIC) 10-27 0.25 mg ity of 0.25 mg or 00:00: 00:00 under the [place] 0.5 mg(2 00 :00 skin Medical mg/1.5 mL) weekly. [place] Sangeeta semaglutide 2020-09- No [id number] Inject [facility] (OZEMPIC) 10-27 0.25 mg ity of 0.25 mg or 00:00: 00:00 under the [place] 0.5 mg(2 00 :00 skin Medical mg/1.5 mL) weekly. [place] Sange[place] metformin 2020-09- No [id number] 500mg Take 1 [facility] ER 500 mg 10-27 tablet by ity of 24 hr 00:00: 00:00 mouth [place] tablet 00 :00 daily with Medical breakfast. Branch STOP REGULAR METFORMIN. metformin 2020-09- No [id number] 500mg Take 1 [facility] ER 500 mg 10-27 tablet by ity of 24 hr 00:00: 00:00 mouth [place] tablet 00 :00 daily with Medical breakfast. Branch STOP REGULAR METFORMIN. metformin 2020-09- No [id number] 500mg Take 1 [facility] ER 500 mg 10-27 tablet by ity of 24 hr 00:00: 00:00 mouth [place] tablet 00 :00 daily with Medical breakfast. Branch STOP REGULAR METFORMIN. metformin 2020-09- No [id number] 500mg Take 1 [facility] ER 500 mg 10-27 tablet by ity of 24 hr 00:00: 00:00 mouth [place] tablet 00 :00 daily with Medical breakfast. Branch STOP REGULAR METFORMIN. metformin 2020-09- No [id number] 500mg Take 1 [facility] ER 500 mg 10-27 tablet by ity of 24 hr 00:00: 00:00 mouth [place] tablet 00 :00 daily with Medical breakfast. Branch STOP REGULAR METFORMIN. metformin 2020-09- No [id number] 500mg Take 1 [facility] ER 500 mg 10-27 tablet by ity of 24 hr 00:00: 00:00 mouth [place] tablet 00 :00 daily with Medical breakfast. Branch STOP REGULAR METFORMIN. metformin 2020-09- No [id number] 500mg Take 1 [facility] ER 500 mg 10-27 tablet by ity of 24 hr 00:00: 00:00 mouth [place] tablet 00 :00 daily with Medical breakfast. Branch STOP REGULAR METFORMIN. metformin 2020-09- No [id number] 500mg Take 1 [facility] ER 500 mg 10-27 tablet by ity of 24 hr 00:00: 00:00 mouth [place] tablet 00 :00 daily with Medical breakfast. Branch STOP REGULAR METFORMIN. omeprazole 2020-09- No [id number] 20mg Take 1 [facility] 20 mg 10-27 capsule by ity of capsule 00:00: 00:00 mouth [place] 00 :00 daily. Medical Branch omeprazole 2020-09- No [id number] 20mg Take 1 [facility] 20 mg 10-27 capsule by ity of capsule 00:00: 00:00 mouth [place] 00 :00 daily. Medical Branch cyanocobala 2020-09 Yes [id number] 1000ug 1 mL by [facility] min 1,000 1-09 Intramuscu ity of mcg/mL 00:00: lar route [place] injection 00 every 2 Medical (two) Branch weeks. levothyroxi 2020-09 Yes [id number] 50ug Take 1 [facility] ne 50 mcg 1-09 tablet by ity o f tablet 00:00: mouth [place] 00 every Medical morning. Branch fluticasone 2020-09 Yes [id number] 2{puff} Inhale 2 [facility] propionate 1-09 Puffs ity of (FLOVENT 00:00: every 12 [place] HFA) 110 00 (twelve) Medical mcg/actuati hours. Branch on inhaler Rinse mouth after each use. levalbutero 2020-09 Yes [id number] .63mg Inhale [facility] l 0.63 mg/3 1-09 0.63 mg 3 ity of mL 00:00: (three) [place] nebulizer 00 times Medical solution daily as Branch needed for Wheezing or Shortness of Breath. losartan 50 2020-09 Yes [id number] 50mg Take 1 [facility] mg tablet -09 tablet by ity o f 00:00: mouth 2 [place] 00 (two) Medical times Branch daily. clotrimazol 2020-09 Yes [id number] Apply to [facility] e-betametha 09 area(s) 2 ity of sone cream 00:00: (two) [place] 00 times Medical daily. Branch cyclobenzap 2020-09 Yes [id number] TAKE 1 [facility] rine 5 mg 09 TABLET BY ity o f tablet 00:00: MOUTH [place] 00 EVERY 8 Medical HOURS Branch NEEDED econazole 2020-09 Yes [id number] Apply to [facility] nitrate 1 % 10-04 area(s) 2 ity of cream 00:00: (two) [place] 00 times Medical daily. Branch albuterol 2020-09 Yes [id number] 2{puff} Inhale 2 [facility] (PROAIR 1-09 Puffs ity of HFA) 90 00:00: every 6 [place] mcg/actuati 00 (six) Medical on inhaler hours as Branc h needed for Wheezing or Shortness of Breath. triamcinolo 2020-09 Yes [id number] Apply to [facility] ne 0.025 % 09 area(s) 3 ity of ointment 00:00: (three) [place] 00 times Medical daily. For Branch itching diltiazem 2020-09 Yes [id number] 120mg Take 1 [facility] n[facility] (CARTIA XT) 09 capsule by it y of 120 mg 24 00:00: mouth 2 [place] hr capsule 00 (two) Medical times Branch daily. cyanocobala 2020-09 Yes [id number] 1000ug 1 mL by [facility] min 1,000 -09 Intramuscu ity of mcg/mL 00:00: lar route [place] injection 00 every 2 Medical (two) Branch weeks. levothyroxi 2020-09 Yes [id number] 50ug Take 1 [facility] ne 50 mcg 1-09 tablet by ity o f tablet 00:00: mouth [place] 00 every Medical morning. Branch fluticasone 2020-09 Yes [id number] 2{puff} Inhale 2 [facility] propionate 1-09 Puffs ity of (FLOVENT 00:00: every 12 [place] HFA) 110 00 (twelve) Medical mcg/actuati hours. Branch on inhaler Rinse mouth after each use. levalbutero 2020-09 Yes [id number] .63mg Inhale [facility] l 0.63 mg/3 1-09 0.63 mg 3 ity of mL 00:00: (three) [place] nebulizer 00 times Medical solution daily as Branch needed for Wheezing or Shortness of Breath. losartan 50 2020-09 Yes [id number] 50mg Take 1 [facility] mg tablet 1-09 tablet by ity o f 00:00: mouth 2 [place] 00 (two) Medical times Branch daily. clotrimazol 2020-09 Yes [id number] Apply to [facility] e-betametha -09 area(s) 2 ity of sone cream 00:00: (two) [place] 00 times Medical daily. Branch cyclobenzap 2020-09 Yes [id number] TAKE 1 [facility] rine 5 mg 1-09 TABLET BY ity o f tablet 00:00: MOUTH [place] 00 EVERY 8 Medical HOURS Branch NEEDED econazole 2020-09 Yes [id number] Apply to [facility] nitrate 1 % -09 area(s) 2 ity of cream 00:00: (two) [place] 00 times Medical daily. Branch albuterol 2020-09 Yes [id number] 2{puff} Inhale 2 [facility] (PROAIR 1-09 Puffs ity of HFA) 90 00:00: every 6 [place] mcg/actuati 00 (six) Medical on inhaler hours as Branc h needed for Wheezing or Shortness of Breath. triamcinolo 2020-09 Yes [id number] Apply to [facility] ne 0.025 % 1-09 area(s) 3 ity of ointment 00:00: (three) [place] 00 times Medical daily. For Branch itching diltiazem 2020-09 Yes [id number] 120mg Take 1 U nivers (CARTIA XT) 1-09 capsule by it y of 120 mg 24 00:00: mouth 2 [place] hr capsule 00 (two) Medical times Branch daily. cyanocobala 2020-09 Yes [id number] 1000ug 1 mL by [facility] min 1,000 1-09 Intramuscu ity of mcg/mL 00:00: lar route [place] injection 00 every 2 Medical (two) Branch weeks. levothyroxi 2020-09 Yes [id number] 50ug Take 1 [facility] ne 50 mcg -09 tablet by ity o f tablet 00:00: mouth [place] 00 every Medical morning. Branch fluticasone 2020-09 Yes [id number] 2{puff} Inhale 2 [facility] propionate 1-09 Puffs ity of (FLOVENT 00:00: every 12 [place] HFA) 110 00 (twelve) Medical mcg/actuati hours. Branch on inhaler Rinse mouth after each use. levalbutero 2020-09 Yes [id number] .63mg Inhale [facility] l 0.63 mg/3 1-09 0.63 mg 3 ity of mL 00:00: (three) [place] nebulizer 00 times Medical solution daily as Branch needed for Wheezing or Shortness of Breath. losartan 50 2020-09 Yes [id number] 50mg Take 1 [facility] mg tablet -09 tablet by ity o f 00:00: mouth 2 [place] 00 (two) Medical times Branch daily. clotrimazol 2020-09 Yes [id number] Apply to [facility] e-betametha 10-04 area(s) 2 ity of sone cream 00:00: (two) [place] 00 times Medical daily. Branch cyclobenzap 2020-09 Yes [id number] TAKE 1 [facility] rine 5 mg 1-09 TABLET BY ity o f tablet 00:00: MOUTH [place] 00 EVERY 8 Medical HOURS Branch NEEDED econazole 2020-09 Yes [id number] Apply to [facility] nitrate 1 % 09 area(s) 2 ity of cream 00:00: (two) [place] 00 times Medical daily. Branch albuterol 2020-09 Yes [id number] 2{puff} Inhale 2 [facility] (PROAIR 1-09 Puffs ity of HFA) 90 00:00: every 6 [place] mcg/actuati 00 (six) Medical on inhaler hours as Branc h needed for Wheezing or Shortness of Breath. triamcinolo 2020-09 Yes [id number] Apply to [facility] ne 0.025 % -09 area(s) 3 ity of ointment 00:00: (three) [place] 00 times Medical daily. For Branch itching diltiazem 2020-09 Yes [id number] 120mg Take 1 U nivers (CARTIA XT) -09 capsule by it y of 120 mg 24 00:00: mouth 2 [place] hr capsule 00 (two) Medical times Branch daily. cyanocobala 2020-09 Yes [id number] 1000ug 1 mL by [facility] min 1,000 -09 Intramuscu ity of mcg/mL 00:00: lar route [place] injection 00 every 2 Medical (two) Branch weeks. levothyroxi 2020-09 Yes [id number] 50ug Take 1 [facility] ne 50 mcg -09 tablet by ity o f tablet 00:00: mouth [place] 00 every Medical morning. Branch fluticasone 2020-09 Yes [id number] 2{puff} Inhale 2 [facility] propionate -09 Puffs ity of (FLOVENT 00:00: every 12 [place] HFA) 110 00 (twelve) Medical mcg/actuati hours. Branch on inhaler Rinse mouth after each use. levalbutero 2020-09 Yes [id number] .63mg Inhale [facility] l 0.63 mg/3 1-09 0.63 mg 3 ity of mL 00:00: (three) [place] nebulizer 00 times Medical solution daily as Branch needed for Wheezing or Shortness of Breath. losartan 50 2020-09 Yes [id number] 50mg Take 1 [facility] mg tablet -09 tablet by ity o f 00:00: mouth 2 [place] 00 (two) Medical times Branch daily. clotrimazol 2020-09 Yes [id number] Apply to [facility] e-betametha 09 area(s) 2 ity of sone cream 00:00: (two) [place] 00 times Medical daily. Branch cyclobenzap 2020-09 Yes [id number] TAKE 1 [facility] rine 5 mg 1-09 TABLET BY ity o f tablet 00:00: MOUTH [place] 00 EVERY 8 Medical HOURS Branch NEEDED econazole 2020-09 Yes [id number] Apply to [facility] nitrate 1 % 09 area(s) 2 ity of cream 00:00: (two) [place] 00 times Medical daily. Branch albuterol 2020-09 Yes [id number] 2{puff} Inhale 2 [facility] (PROAIR 1-09 Puffs ity of HFA) 90 00:00: every 6 [place] mcg/actuati 00 (six) Medical on inhaler hours as Branc h needed for Wheezing or Shortness of Breath. triamcinolo 2020-09 Yes [id number] Apply to [facility] ne 0.025 % 10-04 area(s) 3 ity of ointment 00:00: (three) [place] 00 times Medical daily. For Branch itching diltiazem 2020-09 Yes [id number] 120mg Take 1 [facility] nivers (CARTIA XT) 10-04 capsule by it y of 120 mg 24 00:00: mouth 2 [place] hr capsule 00 (two) Medical times Branch daily. cyanocobala 2020-09 Yes [id number] 1000ug 1 mL by [facility] min 1,000 10-04 Intramuscu ity of mcg/mL 00:00: lar route [place] injection 00 every 2 Medical (two) Branch weeks. levothyroxi 2020-09 Yes [id number] 50ug Take 1 [facility] ne 50 mcg 10-04 tablet by ity o f tablet 00:00: mouth [place] 00 every Medical morning. Branch fluticasone 2020-09 Yes [id number] 2{puff} Inhale 2 [facility] propionate 1-09 Puffs ity of (FLOVENT 00:00: every 12 [place] HFA) 110 00 (twelve) Medical mcg/actuati hours. Branch on inhaler Rinse mouth after each use. levalbutero 2020-09 Yes [id number] .63mg Inhale [facility] l 0.63 mg/3 1-09 0.63 mg 3 ity of mL 00:00: (three) [place] nebulizer 00 times Medical solution daily as Branch needed for Wheezing or Shortness of Breath. clotrimazol 2020-09 Yes [id number] Apply to [facility] e-betametha 09 area(s) 2 ity of sone cream 00:00: (two) [place] 00 times Medical daily. Branch cyclobenzap 2020-09 Yes [id number] TAKE 1 [facility] rine 5 mg 1-09 TABLET BY ity o f tablet 00:00: MOUTH [place] 00 EVERY 8 Medical HOURS Branch NEEDED econazole 2020-09 Yes [id number] Apply to [facility] nitrate 1 % 1-09 area(s) 2 ity of cream 00:00: (two) [place] 00 times Medical daily. Branch albuterol 2020-09 Yes [id number] 2{puff} Inhale 2 [facility] (PROAIR 1-09 Puffs ity of HFA) 90 00:00: every 6 [place] mcg/actuati 00 (six) Medical on inhaler hours as Branc h needed for Wheezing or Shortness of Breath. triamcinolo 2020-09 Yes [id number] Apply to [facility] ne 0.025 % -09 area(s) 3 ity of ointment 00:00: (three) [place] 00 times Medical daily. For Branch itching cyanocobala 2020-09 Yes [id number] 1000ug 1 mL by [facility] min 1,000 1-09 Intramuscu ity of mcg/mL 00:00: lar route [place] injection 00 every 2 Medical (two) Branch weeks. levothyroxi 2020-09 Yes [id number] 50ug Take 1 [facility] ne 50 mcg 1-09 tablet by ity o f tablet 00:00: mouth [place] 00 every Medical morning. Branch fluticasone 2020-09 Yes [id number] 2{puff} Inhale 2 [facility] propionate 1-09 Puffs ity of (FLOVENT 00:00: every 12 [place] HFA) 110 00 (twelve) Medical mcg/actuati hours. Branch on inhaler Rinse mouth after each use. levalbutero 2020-09 Yes [id number] .63mg Inhale [facility] l 0.63 mg/3 1-09 0.63 mg 3 ity of mL 00:00: (three) [place] nebulizer 00 times Medical solution daily as Branch needed for Wheezing or Shortness of Breath. clotrimazol 2020-09 Yes [id number] Apply to [facility] e-betametha 1-09 area(s) 2 ity of sone cream 00:00: (two) [place] 00 times Medical daily. Branch cyclobenzap 2020-09 Yes [id number] TAKE 1 [facility] rine 5 mg 1-09 TABLET BY ity o f tablet 00:00: MOUTH [place] 00 EVERY 8 Medical HOURS Branch NEEDED econazole 2020-09 Yes [id number] Apply to [facility] nitrate 1 % -09 area(s) 2 ity of cream 00:00: (two) [place] 00 times Medical daily. Branch albuterol 2020-09 Yes [id number] 2{puff} Inhale 2 [facility] (PROAIR 1-09 Puffs ity of HFA) 90 00:00: every 6 [place] mcg/actuati 00 (six) Medical on inhaler hours as Branc h needed for Wheezing or Shortness of Breath. triamcinolo 2020-09 Yes [id number] Apply to [facility] ne 0.025 % -09 area(s) 3 ity of ointment 00:00: (three) [place] 00 times Medical daily. For Branch itching cyanocobala 2020-09 Yes [id number] 1000ug 1 mL by [facility] min 1,000 -09 Intramuscu ity of mcg/mL 00:00: lar route [place] injection 00 every 2 Medical (two) Branch weeks. levothyroxi 2020-09 Yes [id number] 50ug Take 1 [facility] ne 50 mcg -09 tablet by ity o f tablet 00:00: mouth [place] 00 every Medical morning. Branch fluticasone 2020-09 Yes [id number] 2{puff} Inhale 2 [facility] propionate 1-09 Puffs ity of (FLOVENT 00:00: every 12 [place] HFA) 110 00 (twelve) Medical mcg/actuati hours. Branch on inhaler Rinse mouth after each use. levalbutero 2020-09 Yes [id number] .63mg Inhale [facility] l 0.63 mg/3 1-09 0.63 mg 3 ity of mL 00:00: (three) [place] nebulizer 00 times Medical solution daily as Branch needed for Wheezing or Shortness of Breath. clotrimazol 2020-09 Yes [id number] Apply to [facility] e-betametha -09 area(s) 2 ity of sone cream 00:00: (two) [place] 00 times Medical daily. Branch cyclobenzap 2020-09 Yes [id number] TAKE 1 [facility] rine 5 mg 1-09 TABLET BY ity o f tablet 00:00: MOUTH [place] 00 EVERY 8 Medical HOURS Branch NEEDED econazole 2020-09 Yes [id number] Apply to [facility] nitrate 1 % 1-09 area(s) 2 ity of cream 00:00: (two) [place] 00 times Medical daily. Branch albuterol 2020-09 Yes [id number] 2{puff} Inhale 2 [facility] (PROAIR 1-09 Puffs ity of HFA) 90 00:00: every 6 [place] mcg/actuati 00 (six) Medical on inhaler hours as Branc h needed for Wheezing or Shortness of Breath. triamcinolo 2020-09 Yes [id number] Apply to [facility] ne 0.025 % 1-09 area(s) 3 ity of ointment 00:00: (three) [place] 00 times Medical daily. For Branch itching cyanocobala 2020-09 Yes [id number] 1000ug 1 mL by [facility] min 1,000 1-09 Intramuscu ity of mcg/mL 00:00: lar route [place] injection 00 every 2 Medical (two) Branch weeks. levothyroxi 2020-09 Yes [id number] 50ug Take 1 [facility] ne 50 mcg -09 tablet by ity o f tablet 00:00: mouth [place] 00 every Medical morning. Branch fluticasone 2020-09 Yes [id number] 2{puff} Inhale 2 [facility] propionate 1-09 Puffs ity of (FLOVENT 00:00: every 12 [place] HFA) 110 00 (twelve) Medical mcg/actuati hours. Branch on inhaler Rinse mouth after each use. levalbutero 2020-09 Yes [id number] .63mg Inhale [facility] l 0.63 mg/3 1-09 0.63 mg 3 ity of mL 00:00: (three) [place] nebulizer 00 times Medical solution daily as Branch needed for Wheezing or Shortness of Breath. clotrimazol 2020-09 Yes [id number] Apply to [facility] e-betametha -09 area(s) 2 ity of sone cream 00:00: (two) [place] 00 times Medical daily. Branch cyclobenzap 2020-09 Yes [id number] TAKE 1 [facility] rine 5 mg 1-09 TABLET BY ity o f tablet 00:00: MOUTH [place] 00 EVERY 8 Medical HOURS Branch NEEDED econazole 2020-09 Yes [id number] Apply to [facility] nitrate 1 % -09 area(s) 2 ity of cream 00:00: (two) [place] 00 times Medical daily. Branch albuterol 2020-09 Yes [id number] 2{puff} Inhale 2 [facility] (PROAIR 1-09 Puffs ity of HFA) 90 00:00: every 6 [place] mcg/actuati 00 (six) Medical on inhaler hours as Branc h needed for Wheezing or Shortness of Breath. triamcinolo 2020-09 Yes [id number] Apply to [facility] ne 0.025 % 1-09 area(s) 3 ity of ointment 00:00: (three) [place] 00 times Medical daily. For Branch itching cyanocobala 2020-09 Yes [id number] 1000ug 1 mL by [facility] min 1,000 1-09 Intramuscu ity of mcg/mL 00:00: lar route [place] injection 00 every 2 Medical (two) Branch weeks. levothyroxi 2020-09 Yes [id number] 50ug Take 1 [facility] ne 50 mcg 1-09 tablet by ity o f tablet 00:00: mouth [place] 00 every Medical morning. Branch fluticasone 2020-09 Yes [id number] 2{puff} Inhale 2 [facility] propionate 1-09 Puffs ity of (FLOVENT 00:00: every 12 [place] HFA) 110 00 (twelve) Medical mcg/actuati hours. Branch on inhaler Rinse mouth after each use. levalbutero 2020-09 Yes [id number] .63mg Inhale [facility] l 0.63 mg/3 1-09 0.63 mg 3 ity of mL 00:00: (three) [place] nebulizer 00 times Medical solution daily as Branch needed for Wheezing or Shortness of Breath. clotrimazol 2020-09 Yes [id number] Apply to [facility] e-betametha -09 area(s) 2 ity of sone cream 00:00: (two) [place] 00 times Medical daily. Branch cyclobenzap 2020-09 Yes [id number] TAKE 1 [facility] rine 5 mg 1-09 TABLET BY ity o f tablet 00:00: MOUTH [place] 00 EVERY 8 Medical HOURS Branch NEEDED econazole 2020-09 Yes [id number] Apply to [facility] nitrate 1 % 1-09 area(s) 2 ity of cream 00:00: (two) [place] 00 times Medical daily. Branch albuterol 2020-09 Yes [id number] 2{puff} Inhale 2 [facility] (PROAIR 1-09 Puffs ity of HFA) 90 00:00: every 6 [place] mcg/actuati 00 (six) Medical on inhaler hours as Branc h needed for Wheezing or Shortness of Breath. triamcinolo 2020-09 Yes [id number] Apply to [facility] ne 0.025 % 10-04 area(s) 3 ity of ointment 00:00: (three) [place] 00 times Medical daily. For Branch itching cyanocobala 2020-09 Yes [id number] 1000ug 1 mL by [facility] min 1,000 09 Intramuscu ity of mcg/mL 00:00: lar route [place] injection 00 every 2 Medical (two) Branch weeks. levothyroxi 2020-09 Yes [id number] 50ug Take 1 [facility] ne 50 mcg -09 tablet by ity o f tablet 00:00: mouth [place] 00 every Medical morning. Branch fluticasone 2020-09 Yes [id number] 2{puff} Inhale 2 [facility] propionate 1-09 Puffs ity of (FLOVENT 00:00: every 12 [place] HFA) 110 00 (twelve) Medical mcg/actuati hours. Branch on inhaler Rinse mouth after each use. levalbutero 2020-09 Yes [id number] .63mg Inhale [facility] l 0.63 mg/3 -09 0.63 mg 3 ity of mL 00:00: (three) [place] nebulizer 00 times Medical solution daily as Branch needed for Wheezing or Shortness of Breath. clotrimazol 2020-09 Yes [id number] Apply to [facility] e-betametha 10-04 area(s) 2 ity of sone cream 00:00: (two) [place] 00 times Medical daily. Branch cyclobenzap 2020-09 Yes [id number] TAKE 1 [facility] rine 5 mg -09 TABLET BY ity o f tablet 00:00: MOUTH [place] 00 EVERY 8 Medical HOURS Branch NEEDED econazole 2020-09 Yes [id number] Apply to [facility] nitrate 1 % -09 area(s) 2 ity of cream 00:00: (two) [place] 00 times Medical daily. Branch albuterol 2020-09 Yes [id number] 2{puff} Inhale 2 [facility] (PROAIR 1-09 Puffs ity of HFA) 90 00:00: every 6 [place] mcg/actuati 00 (six) Medical on inhaler hours as Branc h needed for Wheezing or Shortness of Breath. triamcinolo 2020-09 Yes [id number] Apply to [facility] ne 0.025 % 1-09 area(s) 3 ity of ointment 00:00: (three) [place] 00 times Medical daily. For Branch itching cyanocobala 2020-09 Yes [id number] 1000ug 1 mL by [facility] min 1,000 1-09 Intramuscu ity of mcg/mL 00:00: lar route [place] injection 00 every 2 Medical (two) Branch weeks. levothyroxi 2020-09 Yes [id number] 50ug Take 1 [facility] ne 50 mcg 1-09 tablet by ity o f tablet 00:00: mouth [place] 00 every Medical morning. Branch fluticasone 2020-09 Yes [id number] 2{puff} Inhale 2 [facility] propionate 1-09 Puffs ity of (FLOVENT 00:00: every 12 [place] HFA) 110 00 (twelve) Medical mcg/actuati hours. Branch on inhaler Rinse mouth after each use. levalbutero 2020-09 Yes [id number] .63mg Inhale [facility] l 0.63 mg/3 1-09 0.63 mg 3 ity of mL 00:00: (three) [place] nebulizer 00 times Medical solution daily as Branch needed for Wheezing or Shortness of Breath. clotrimazol 2020-09 Yes [id number] Apply to [facility] e-betametha 09 area(s) 2 ity of sone cream 00:00: (two) [place] 00 times Medical daily. Branch cyclobenzap 2020-09 Yes [id number] TAKE 1 [facility] rine 5 mg -09 TABLET BY ity o f tablet 00:00: MOUTH [place] 00 EVERY 8 Medical HOURS Branch NEEDED econazole 2020-09 Yes [id number] Apply to [facility] nitrate 1 % -09 area(s) 2 ity of cream 00:00: (two) [place] 00 times Medical daily. Branch albuterol 2020-09 Yes [id number] 2{puff} Inhale 2 [facility] (PROAIR 1-09 Puffs ity of HFA) 90 00:00: every 6 [place] mcg/actuati 00 (six) Medical on inhaler hours as Branc h needed for Wheezing or Shortness of Breath. triamcinolo 2020-09 Yes [id number] Apply to [facility] ne 0.025 % 1-09 area(s) 3 ity of ointment 00:00: (three) [place] 00 times Medical daily. For Branch itching cyanocobala 2020-09 Yes [id number] 1000ug 1 mL by [facility] min 1,000 -09 Intramuscu ity of mcg/mL 00:00: lar route [place] injection 00 every 2 Medical (two) Branch weeks. levothyroxi 2020-09 Yes [id number] 50ug Take 1 [facility] ne 50 mcg 1-09 tablet by ity o f tablet 00:00: mouth [place] 00 every Medical morning. Branch fluticasone 2020-09 Yes [id number] 2{puff} Inhale 2 [facility] propionate 1-09 Puffs ity of (FLOVENT 00:00: every 12 [place] HFA) 110 00 (twelve) Medical mcg/actuati hours. Branch on inhaler Rinse mouth after each use. levalbutero 2020-09 Yes [id number] .63mg Inhale [facility] l 0.63 mg/3 1-09 0.63 mg 3 ity of mL 00:00: (three) [place] nebulizer 00 times Medical solution daily as Branch needed for Wheezing or Shortness of Breath. clotrimazol 2020-09 Yes [id number] Apply to [facility] e-betametha 10-04 area(s) 2 ity of sone cream 00:00: (two) [place] 00 times Medical daily. Branch cyclobenzap 2020-09 Yes [id number] TAKE 1 [facility] rine 5 mg -09 TABLET BY ity o f tablet 00:00: MOUTH [place] 00 EVERY 8 Medical HOURS Branch NEEDED econazole 2020-09 Yes [id number] Apply to [facility] nitrate 1 % 09 area(s) 2 ity of cream 00:00: (two) [place] 00 times Medical daily. Branch albuterol 2020-09 Yes [id number] 2{puff} Inhale 2 [facility] (PROAIR 1-09 Puffs ity of HFA) 90 00:00: every 6 [place] mcg/actuati 00 (six) Medical on inhaler hours as Branc h needed for Wheezing or Shortness of Breath. triamcinolo 2020-09 Yes [id number] Apply to [facility] ne 0.025 % -09 area(s) 3 ity of ointment 00:00: (three) [place] 00 times Medical daily. For Branch itching cyanocobala 2020-09 Yes [id number] 1000ug 1 mL by [facility] min 1,000 -09 Intramuscu ity of mcg/mL 00:00: lar route [place] injection 00 every 2 Medical (two) Branch weeks. levothyroxi 2020-09 Yes [id number] 50ug Take 1 [facility] ne 50 mcg 1-09 tablet by ity o f tablet 00:00: mouth [place] 00 every Medical morning. Branch fluticasone 2020-09 Yes [id number] 2{puff} Inhale 2 [facility] propionate 1-09 Puffs ity of (FLOVENT 00:00: every 12 [place] HFA) 110 00 (twelve) Medical mcg/actuati hours. Branch on inhaler Rinse mouth after each use. levalbutero 2020-09 Yes [id number] .63mg Inhale [facility] l 0.63 mg/3 -09 0.63 mg 3 ity of mL 00:00: (three) [place] nebulizer 00 times Medical solution daily as Branch needed for Wheezing or Shortness of Breath. clotrimazol 2020-09 Yes [id number] Apply to [facility] e-betametha 10-04 area(s) 2 ity of sone cream 00:00: (two) [place] 00 times Medical daily. Branch cyclobenzap 2020-09 Yes [id number] TAKE 1 [facility] rine 5 mg -09 TABLET BY ity o f tablet 00:00: MOUTH [place] 00 EVERY 8 Medical HOURS Branch NEEDED econazole 2020-09 Yes [id number] Apply to [facility] nitrate 1 % 09 area(s) 2 ity of cream 00:00: (two) [place] 00 times Medical daily. Branch albuterol 2020-09 Yes [id number] 2{puff} Inhale 2 [facility] (PROAIR 1-09 Puffs ity of HFA) 90 00:00: every 6 [place] mcg/actuati 00 (six) Medical on inhaler hours as Branc h needed for Wheezing or Shortness of Breath. triamcinolo 2020-09 Yes [id number] Apply to [facility] ne 0.025 % -09 area(s) 3 ity of ointment 00:00: (three) [place] 00 times Medical daily. For Branch itching cyanocobala 2020-09 Yes [id number] 1000ug 1 mL by [facility] min 1,000 1-09 Intramuscu ity of mcg/mL 00:00: lar route [place] injection 00 every 2 Medical (two) Branch weeks. levothyroxi 2020-09 Yes [id number] 50ug Take 1 [facility] ne 50 mcg 1-09 tablet by ity o f tablet 00:00: mouth [place] 00 every Medical morning. Branch fluticasone 2020-09 Yes [id number] 2{puff} Inhale 2 [facility] propionate 1-09 Puffs ity of (FLOVENT 00:00: every 12 [place] HFA) 110 00 (twelve) Medical mcg/actuati hours. Branch on inhaler Rinse mouth after each use. levalbutero 2020-09 Yes [id number] .63mg Inhale [facility] l 0.63 mg/3 1-09 0.63 mg 3 ity of mL 00:00: (three) [place] nebulizer 00 times Medical solution daily as Branch needed for Wheezing or Shortness of Breath. clotrimazol 2020-09 Yes [id number] Apply to [facility] e-betametha 1-09 area(s) 2 ity of sone cream 00:00: (two) [place] 00 times Medical daily. Branch cyclobenzap 2020-09 Yes [id number] TAKE 1 [facility] rine 5 mg 1-09 TABLET BY ity o f tablet 00:00: MOUTH [place] 00 EVERY 8 Medical HOURS Branch NEEDED econazole 2020-09 Yes [id number] Apply to [facility] nitrate 1 % 1-09 area(s) 2 ity of cream 00:00: (two) [place] 00 times Medical daily. Branch albuterol 2020-09 Yes [id number] 2{puff} Inhale 2 [facility] (PROAIR 1-09 Puffs ity of HFA) 90 00:00: every 6 [place] mcg/actuati 00 (six) Medical on inhaler hours as Branc h needed for Wheezing or Shortness of Breath. triamcinolo 2020-09 Yes [id number] Apply to [facility] ne 0.025 % 1-09 area(s) 3 ity of ointment 00:00: (three) [place] 00 times Medical daily. For Branch itching cyanocobala 2020-09 Yes [id number] 1000ug 1 mL by [facility] min 1,000 1-09 Intramuscu ity of mcg/mL 00:00: lar route [place] injection 00 every 2 Medical (two) Branch weeks. levothyroxi 2020-09 Yes [id number] 50ug Take 1 [facility] ne 50 mcg 1-09 tablet by ity o f tablet 00:00: mouth [place] 00 every Medical morning. Branch fluticasone 2020-09 Yes [id number] 2{puff} Inhale 2 [facility] propionate 1-09 Puffs ity of (FLOVENT 00:00: every 12 [place] HFA) 110 00 (twelve) Medical mcg/actuati hours. Branch on inhaler Rinse mouth after each use. levalbutero 2020-09 Yes [id number] .63mg Inhale [facility] l 0.63 mg/3 1-09 0.63 mg 3 ity of mL 00:00: (three) [place] nebulizer 00 times Medical solution daily as Branch needed for Wheezing or Shortness of Breath. clotrimazol 2020-09 Yes [id number] Apply to [facility] e-betametha -09 area(s) 2 ity of sone cream 00:00: (two) [place] 00 times Medical daily. Branch cyclobenzap 2020-09 Yes [id number] TAKE 1 [facility] rine 5 mg -09 TABLET BY ity o f tablet 00:00: MOUTH [place] 00 EVERY 8 Medical HOURS Branch NEEDED econazole 2020-09 Yes [id number] Apply to [facility] nitrate 1 % -09 area(s) 2 ity of cream 00:00: (two) [place] 00 times Medical daily. Branch albuterol 2020-09 Yes [id number] 2{puff} Inhale 2 [facility] (PROAIR 1-09 Puffs ity of HFA) 90 00:00: every 6 [place] mcg/actuati 00 (six) Medical on inhaler hours as Branc h needed for Wheezing or Shortness of Breath. triamcinolo 2020-09 Yes [id number] Apply to [facility] ne 0.025 % 1-09 area(s) 3 ity of ointment 00:00: (three) [place] 00 times Medical daily. For Branch itching cyanocobala 2020-09 Yes [id number] 1000ug 1 mL by [facility] min 1,000 1-09 Intramuscu ity of mcg/mL 00:00: lar route [place] injection 00 every 2 Medical (two) Branch weeks. levothyroxi 2020-09 Yes [id number] 50ug Take 1 [facility] ne 50 mcg 1-09 tablet by ity o f tablet 00:00: mouth [place] 00 every Medical morning. Branch fluticasone 2020-09 Yes [id number] 2{puff} Inhale 2 [facility] propionate 1-09 Puffs ity of (FLOVENT 00:00: every 12 [place] HFA) 110 00 (twelve) Medical mcg/actuati hours. Branch on inhaler Rinse mouth after each use. levalbutero 2020-09 Yes [id number] .63mg Inhale [facility] l 0.63 mg/3 1-09 0.63 mg 3 ity of mL 00:00: (three) [place] nebulizer 00 times Medical solution daily as Branch needed for Wheezing or Shortness of Breath. clotrimazol 2020-09 Yes [id number] Apply to [facility] e-betametha 1-09 area(s) 2 ity of sone cream 00:00: (two) [place] 00 times Medical daily. Branch cyclobenzap 2020-09 Yes [id number] TAKE 1 [facility] rine 5 mg 1-09 TABLET BY ity o f tablet 00:00: MOUTH [place] 00 EVERY 8 Medical HOURS Branch NEEDED econazole 2020-09 Yes [id number] Apply to [facility] nitrate 1 % 1-09 area(s) 2 ity of cream 00:00: (two) [place] 00 times Medical daily. Branch albuterol 2020-09 Yes [id number] 2{puff} Inhale 2 [facility] (PROAIR 1-09 Puffs ity of HFA) 90 00:00: every 6 [place] mcg/actuati 00 (six) Medical on inhaler hours as Branc h needed for Wheezing or Shortness of Breath. triamcinolo 2020-09 Yes [id number] Apply to [facility] ne 0.025 % 1-09 area(s) 3 ity of ointment 00:00: (three) [place] 00 times Medical daily. For Branch itching cyanocobala 2020-09 Yes [id number] 1000ug 1 mL by [facility] min 1,000 1-09 Intramuscu ity of mcg/mL 00:00: lar route [place] injection 00 every 2 Medical (two) Branch weeks. levothyroxi 2020-09 Yes [id number] 50ug Take 1 [facility] ne 50 mcg 1-09 tablet by ity o f tablet 00:00: mouth [place] 00 every Medical morning. Branch fluticasone 2020-09 Yes [id number] 2{puff} Inhale 2 [facility] propionate 1-09 Puffs ity of (FLOVENT 00:00: every 12 [place] HFA) 110 00 (twelve) Medical mcg/actuati hours. Branch on inhaler Rinse mouth after each use. levalbutero 2020-09 Yes [id number] .63mg Inhale [facility] l 0.63 mg/3 1-09 0.63 mg 3 ity of mL 00:00: (three) [place] nebulizer 00 times Medical solution daily as Branch needed for Wheezing or Shortness of Breath. clotrimazol 2020-09 Yes [id number] Apply to [facility] e-betametha 1-09 area(s) 2 ity of sone cream 00:00: (two) [place] 00 times Medical daily. Branch cyclobenzap 2020-09 Yes [id number] TAKE 1 [facility] rine 5 mg 1-09 TABLET BY ity o f tablet 00:00: MOUTH [place] 00 EVERY 8 Medical HOURS Branch NEEDED econazole 2020-09 Yes [id number] Apply to [facility] nitrate 1 % 1-09 area(s) 2 ity of cream 00:00: (two) [place] 00 times Medical daily. Branch albuterol 2020-09 Yes [id number] 2{puff} Inhale 2 [facility] (PROAIR 1-09 Puffs ity of HFA) 90 00:00: every 6 [place] mcg/actuati 00 (six) Medical on inhaler hours as Branc h needed for Wheezing or Shortness of Breath. triamcinolo 2020-09 Yes [id number] Apply to [facility] ne 0.025 % 1-09 area(s) 3 ity of ointment 00:00: (three) [place] 00 times Medical daily. For Branch itching cyanocobala 2020-09 Yes [id number] 1000ug 1 mL by [facility] min 1,000 1-09 Intramuscu ity of mcg/mL 00:00: lar route [place] injection 00 every 2 Medical (two) Branch weeks. levothyroxi 2020-09 Yes [id number] 50ug Take 1 [facility] ne 50 mcg 1-09 tablet by ity o f tablet 00:00: mouth [place] 00 every Medical morning. Branch fluticasone 2020-09 Yes [id number] 2{puff} Inhale 2 [facility] propionate 1-09 Puffs ity of (FLOVENT 00:00: every 12 [place] HFA) 110 00 (twelve) Medical mcg/actuati hours. Branch on inhaler Rinse mouth after each use. levalbutero 2020-09 Yes [id number] .63mg Inhale [facility] l 0.63 mg/3 1-09 0.63 mg 3 ity of mL 00:00: (three) [place] nebulizer 00 times Medical solution daily as Branch needed for Wheezing or Shortness of Breath. clotrimazol 2020-09 Yes [id number] Apply to [facility] e-betametha -09 area(s) 2 ity of sone cream 00:00: (two) [place] 00 times Medical daily. Branch cyclobenzap 2020-09 Yes [id number] TAKE 1 [facility] rine 5 mg -09 TABLET BY ity o f tablet 00:00: MOUTH [place] 00 EVERY 8 Medical HOURS Branch NEEDED econazole 2020-09 Yes [id number] Apply to [facility] nitrate 1 % - area(s) 2 ity of cream 00:00: (two) [place] 00 times Medical daily. Branch albuterol 2020-09 Yes [id number] 2{puff} Inhale 2 [facility] (PROAIR 1-09 Puffs ity of HFA) 90 00:00: every 6 [place] mcg/actuati 00 (six) Medical on inhaler hours as Branc h needed for Wheezing or Shortness of Breath. triamcinolo 2020-09 Yes [id number] Apply to [facility] ne 0.025 % -09 area(s) 3 ity of ointment 00:00: (three) [place] 00 times Medical daily. For Branch itching cyanocobala 2020-09 Yes [id number] 1000ug 1 mL by [facility] min 1,000 1-09 Intramuscu ity of mcg/mL 00:00: lar route [place] injection 00 every 2 Medical (two) Branch weeks. levothyroxi 2020-09 Yes [id number] 50ug Take 1 [facility] ne 50 mcg 1-09 tablet by ity o f tablet 00:00: mouth [place] 00 every Medical morning. Branch fluticasone 2020-09 Yes [id number] 2{puff} Inhale 2 [facility] propionate 1-09 Puffs ity of (FLOVENT 00:00: every 12 [place] HFA) 110 00 (twelve) Medical mcg/actuati hours. Branch on inhaler Rinse mouth after each use. levalbutero 2020-09 Yes [id number] .63mg Inhale [facility] l 0.63 mg/3 1-09 0.63 mg 3 ity of mL 00:00: (three) [place] nebulizer 00 times Medical solution daily as Branch needed for Wheezing or Shortness of Breath. clotrimazol 2020-09 Yes [id number] Apply to [facility] e-betametha 1-09 area(s) 2 ity of sone cream 00:00: (two) [place] 00 times Medical daily. Branch cyclobenzap 2020-09 Yes [id number] TAKE 1 [facility] rine 5 mg -09 TABLET BY ity o f tablet 00:00: MOUTH [place] 00 EVERY 8 Medical HOURS Branch NEEDED econazole 2020-09 Yes [id number] Apply to [facility] nitrate 1 % -09 area(s) 2 ity of cream 00:00: (two) [place] 00 times Medical daily. Branch albuterol 2020-09 Yes [id number] 2{puff} Inhale 2 [facility] (PROAIR 1-09 Puffs ity of HFA) 90 00:00: every 6 [place] mcg/actuati 00 (six) Medical on inhaler hours as Branc h needed for Wheezing or Shortness of Breath. triamcinolo 2020-09 Yes [id number] Apply to [facility] ne 0.025 % 1-09 area(s) 3 ity of ointment 00:00: (three) [place] 00 times Medical daily. For Branch itching cyanocobala 2020-09 Yes [id number] 1000ug 1 mL by [facility] min 1,000 1-09 Intramuscu ity of mcg/mL 00:00: lar route [place] injection 00 every 2 Medical (two) Branch weeks. levothyroxi 2020-09 Yes [id number] 50ug Take 1 [facility] ne 50 mcg 1-09 tablet by ity o f tablet 00:00: mouth [place] 00 every Medical morning. Branch fluticasone 2020-09 Yes [id number] 2{puff} Inhale 2 [facility] propionate 1-09 Puffs ity of (FLOVENT 00:00: every 12 [place] HFA) 110 00 (twelve) Medical mcg/actuati hours. Branch on inhaler Rinse mouth after each use. levalbutero 2020-09 Yes [id number] .63mg Inhale [facility] l 0.63 mg/3 1-09 0.63 mg 3 ity of mL 00:00: (three) [place] nebulizer 00 times Medical solution daily as Branch needed for Wheezing or Shortness of Breath. clotrimazol 2020-09 Yes [id number] Apply to [facility] e-betametha 1-09 area(s) 2 ity of sone cream 00:00: (two) [place] 00 times Medical daily. Branch cyclobenzap 2020-09 Yes [id number] TAKE 1 [facility] rine 5 mg -09 TABLET BY ity o f tablet 00:00: MOUTH [place] 00 EVERY 8 Medical HOURS Branch NEEDED econazole 2020-09 Yes [id number] Apply to [facility] nitrate 1 % -09 area(s) 2 ity of cream 00:00: (two) [place] 00 times Medical daily. Branch albuterol 2020-09 Yes [id number] 2{puff} Inhale 2 [facility] (PROAIR 1-09 Puffs ity of HFA) 90 00:00: every 6 [place] mcg/actuati 00 (six) Medical on inhaler hours as Branc h needed for Wheezing or Shortness of Breath. triamcinolo 2020-09 Yes [id number] Apply to [facility] ne 0.025 % -09 area(s) 3 ity of ointment 00:00: (three) [place] 00 times Medical daily. For Branch itching cyanocobala 2020-09 Yes [id number] 1000ug 1 mL by [facility] min 1,000 1-09 Intramuscu ity of mcg/mL 00:00: lar route [place] injection 00 every 2 Medical (two) Branch weeks. levothyroxi 2020-09 Yes [id number] 50ug Take 1 [facility] ne 50 mcg -09 tablet by ity o f tablet 00:00: mouth [place] 00 every Medical morning. Branch fluticasone 2020-09 Yes [id number] 2{puff} Inhale 2 [facility] propionate 1-09 Puffs ity of (FLOVENT 00:00: every 12 [place] HFA) 110 00 (twelve) Medical mcg/actuati hours. Branch on inhaler Rinse mouth after each use. levalbutero 2020-09 Yes [id number] .63mg Inhale [facility] l 0.63 mg/3 1-09 0.63 mg 3 ity of mL 00:00: (three) [place] nebulizer 00 times Medical solution daily as Branch needed for Wheezing or Shortness of Breath. clotrimazol 2020-09 Yes [id number] Apply to [facility] e-betametha 1-09 area(s) 2 ity of sone cream 00:00: (two) [place] 00 times Medical daily. Branch cyclobenzap 2020-09 Yes [id number] TAKE 1 [facility] rine 5 mg -09 TABLET BY ity o f tablet 00:00: MOUTH [place] 00 EVERY 8 Medical HOURS Branch NEEDED econazole 2020-09 Yes [id number] Apply to [facility] nitrate 1 % -09 area(s) 2 ity of cream 00:00: (two) [place] 00 times Medical daily. Branch albuterol 2020-09 Yes [id number] 2{puff} Inhale 2 [facility] (PROAIR 1-09 Puffs ity of HFA) 90 00:00: every 6 [place] mcg/actuati 00 (six) Medical on inhaler hours as Branc h needed for Wheezing or Shortness of Breath. triamcinolo 2020-09 Yes [id number] Apply to [facility] ne 0.025 % -09 area(s) 3 ity of ointment 00:00: (three) [place] 00 times Medical daily. For Branch itching cyanocobala 2020-09 Yes [id number] 1000ug 1 mL by [facility] min 1,000 1-09 Intramuscu ity of mcg/mL 00:00: lar route [place] injection 00 every 2 Medical (two) Branch weeks. levothyroxi 2020-09 Yes [id number] 50ug Take 1 [facility] ne 50 mcg 1-09 tablet by ity o f tablet 00:00: mouth [place] 00 every Medical morning. Branch fluticasone 2020-09 Yes [id number] 2{puff} Inhale 2 [facility] propionate 1-09 Puffs ity of (FLOVENT 00:00: every 12 [place] HFA) 110 00 (twelve) Medical mcg/actuati hours. Branch on inhaler Rinse mouth after each use. levalbutero 2020-09 Yes [id number] .63mg Inhale [facility] l 0.63 mg/3 1-09 0.63 mg 3 ity of mL 00:00: (three) [place] nebulizer 00 times Medical solution daily as Branch needed for Wheezing or Shortness of Breath. clotrimazol 2020-09 Yes [id number] Apply to [facility] e-betametha 09 area(s) 2 ity of sone cream 00:00: (two) [place] 00 times Medical daily. Branch cyclobenzap 2020-09 Yes [id number] TAKE 1 [facility] rine 5 mg 09 TABLET BY ity o f tablet 00:00: MOUTH [place] 00 EVERY 8 Medical HOURS Branch NEEDED econazole 2020-09 Yes [id number] Apply to [facility] nitrate 1 % 10-04 area(s) 2 ity of cream 00:00: (two) [place] 00 times Medical daily. Branch albuterol 2020-09 Yes [id number] 2{puff} Inhale 2 [facility] (PROAIR 1-09 Puffs ity of HFA) 90 00:00: every 6 [place] mcg/actuati 00 (six) Medical on inhaler hours as Branc h needed for Wheezing or Shortness of Breath. triamcinolo 2020-09 Yes [id number] Apply to [facility] ne 0.025 % 10-04 area(s) 3 ity of ointment 00:00: (three) [place] 00 times Medical daily. For Branch itching cyanocobala 2020-09 Yes [id number] 1000ug 1 mL by [facility] min 1,000 -09 Intramuscu ity of mcg/mL 00:00: lar route [place] injection 00 every 2 Medical (two) Branch weeks. levothyroxi 2020-09 Yes [id number] 50ug Take 1 [facility] ne 50 mcg -09 tablet by ity o f tablet 00:00: mouth [place] 00 every Medical morning. Branch fluticasone 2020-09 Yes [id number] 2{puff} Inhale 2 [facility] propionate 1-09 Puffs ity of (FLOVENT 00:00: every 12 [place] HFA) 110 00 (twelve) Medical mcg/actuati hours. Branch on inhaler Rinse mouth after each use. levalbutero 2020-09 Yes [id number] .63mg Inhale [facility] l 0.63 mg/3 1-09 0.63 mg 3 ity of mL 00:00: (three) [place] nebulizer 00 times Medical solution daily as Branch needed for Wheezing or Shortness of Breath. clotrimazol 2020-09 Yes [id number] Apply to [facility] e-betametha 09 area(s) 2 ity of sone cream 00:00: (two) [place] 00 times Medical daily. Branch cyclobenzap 2020-09 Yes [id number] TAKE 1 [facility] rine 5 mg 10-04 TABLET BY ity o f tablet 00:00: MOUTH [place] 00 EVERY 8 Medical HOURS Branch NEEDED econazole 2020-09 Yes [id number] Apply to [facility] nitrate 1 % 10-04 area(s) 2 ity of cream 00:00: (two) [place] 00 times Medical daily. Branch albuterol 2020-09 Yes [id number] 2{puff} Inhale 2 [facility] (PROAIR 1-09 Puffs ity of HFA) 90 00:00: every 6 [place] mcg/actuati 00 (six) Medical on inhaler hours as Branc h needed for Wheezing or Shortness of Breath. triamcinolo 2020-09 Yes [id number] Apply to [facility] ne 0.025 % 10-04 area(s) 3 ity of ointment 00:00: (three) [place] 00 times Medical daily. For Branch itching cyanocobala 2020-09 Yes [id number] 1000ug 1 mL by [facility] min 1,000 -09 Intramuscu ity of mcg/mL 00:00: lar route [place] injection 00 every 2 Medical (two) Branch weeks. levothyroxi 2020-09 Yes [id number] 50ug Take 1 [facility] ne 50 mcg 09 tablet by ity o f tablet 00:00: mouth [place] 00 every Medical morning. Branch fluticasone 2020-09 Yes [id number] 2{puff} Inhale 2 [facility] propionate 1-09 Puffs ity of (FLOVENT 00:00: every 12 [place] HFA) 110 00 (twelve) Medical mcg/actuati hours. Branch on inhaler Rinse mouth after each use. levalbutero 2020-09 Yes [id number] .63mg Inhale [facility] l 0.63 mg/3 1-09 0.63 mg 3 ity of mL 00:00: (three) [place] nebulizer 00 times Medical solution daily as Branch needed for Wheezing or Shortness of Breath. clotrimazol 2020-09 Yes [id number] Apply to [facility] e-betametha 1-09 area(s) 2 ity of sone cream 00:00: (two) [place] 00 times Medical daily. Branch cyclobenzap 2020-09 Yes [id number] TAKE 1 [facility] rine 5 mg 1-09 TABLET BY ity o f tablet 00:00: MOUTH [place] 00 EVERY 8 Medical HOURS Branch NEEDED econazole 2020-09 Yes [id number] Apply to [facility] nitrate 1 % -09 area(s) 2 ity of cream 00:00: (two) [place] 00 times Medical daily. Branch albuterol 2020-09 Yes [id number] 2{puff} Inhale 2 [facility] (PROAIR 1-09 Puffs ity of HFA) 90 00:00: every 6 [place] mcg/actuati 00 (six) Medical on inhaler hours as Branc h needed for Wheezing or Shortness of Breath. triamcinolo 2020-09 Yes [id number] Apply to [facility] ne 0.025 % 09 area(s) 3 ity of ointment 00:00: (three) [place] 00 times Medical daily. For Branch itching cyanocobala 2020-09 Yes [id number] 1000ug 1 mL by [facility] min 1,000 1-09 Intramuscu ity of mcg/mL 00:00: lar route [place] injection 00 every 2 Medical (two) Branch weeks. levothyroxi 2020-09 Yes [id number] 50ug Take 1 [facility] ne 50 mcg 1-09 tablet by ity o f tablet 00:00: mouth [place] 00 every Medical morning. Branch fluticasone 2020-09 Yes [id number] 2{puff} Inhale 2 [facility] propionate 1-09 Puffs ity of (FLOVENT 00:00: every 12 [place] HFA) 110 00 (twelve) Medical mcg/actuati hours. Branch on inhaler Rinse mouth after each use. levalbutero 2020-09 Yes [id number] .63mg Inhale [facility] l 0.63 mg/3 1-09 0.63 mg 3 ity of mL 00:00: (three) [place] nebulizer 00 times Medical solution daily as Branch needed for Wheezing or Shortness of Breath. clotrimazol 2020-09 Yes [id number] Apply to [facility] e-betametha 09 area(s) 2 ity of sone cream 00:00: (two) [place] 00 times Medical daily. Branch cyclobenzap 2020-09 Yes [id number] TAKE 1 [facility] rine 5 mg 09 TABLET BY ity o f tablet 00:00: MOUTH [place] 00 EVERY 8 Medical HOURS Branch NEEDED econazole 2020-09 Yes [id number] Apply to [facility] nitrate 1 % 09 area(s) 2 ity of cream 00:00: (two) [place] 00 times Medical daily. Branch albuterol 2020-09 Yes [id number] 2{puff} Inhale 2 [facility] (PROAIR 1-09 Puffs ity of HFA) 90 00:00: every 6 [place] mcg/actuati 00 (six) Medical on inhaler hours as Branc h needed for Wheezing or Shortness of Breath. triamcinolo 2020-09 Yes [id number] Apply to [facility] ne 0.025 % 10-04 area(s) 3 ity of ointment 00:00: (three) [place] 00 times Medical daily. For Branch itching cyanocobala 2020-09 Yes [id number] 1000ug 1 mL by [facility] min 1,000 -09 Intramuscu ity of mcg/mL 00:00: lar route [place] injection 00 every 2 Medical (two) Branch weeks. levothyroxi 2020-09 Yes [id number] 50ug Take 1 [facility] ne 50 mcg 10-04 tablet by ity o f tablet 00:00: mouth [place] 00 every Medical morning. Branch fluticasone 2020-09 Yes [id number] 2{puff} Inhale 2 [facility] propionate 1-09 Puffs ity of (FLOVENT 00:00: every 12 [place] HFA) 110 00 (twelve) Medical mcg/actuati hours. Branch on inhaler Rinse mouth after each use. levalbutero 2020-09 Yes [id number] .63mg Inhale [facility] l 0.63 mg/3 1-09 0.63 mg 3 ity of mL 00:00: (three) [place] nebulizer 00 times Medical solution daily as Branch needed for Wheezing or Shortness of Breath. clotrimazol 2020-09 Yes [id number] Apply to [facility] e-betametha -09 area(s) 2 ity of sone cream 00:00: (two) [place] 00 times Medical daily. Branch cyclobenzap 2020-09 Yes [id number] TAKE 1 [facility] rine 5 mg -09 TABLET BY ity o f tablet 00:00: MOUTH [place] 00 EVERY 8 Medical HOURS Branch NEEDED econazole 2020-09 Yes [id number] Apply to [facility] nitrate 1 % 09 area(s) 2 ity of cream 00:00: (two) [place] 00 times Medical daily. Branch albuterol 2020-09 Yes [id number] 2{puff} Inhale 2 [facility] (PROAIR 1-09 Puffs ity of HFA) 90 00:00: every 6 [place] mcg/actuati 00 (six) Medical on inhaler hours as Branc h needed for Wheezing or Shortness of Breath. triamcinolo 2020-09 Yes [id number] Apply to [facility] ne 0.025 % 09 area(s) 3 ity of ointment 00:00: (three) [place] 00 times Medical daily. For Branch itching cyanocobala 2020-09 Yes [id number] 1000ug 1 mL by [facility] min 1,000 -09 Intramuscu ity of mcg/mL 00:00: lar route [place] injection 00 every 2 Medical (two) Branch weeks. levothyroxi 2020-09 Yes [id number] 50ug Take 1 [facility] ne 50 mcg 10-04 tablet by ity o f tablet 00:00: mouth [place] 00 every Medical morning. Branch fluticasone 2020-09 Yes [id number] 2{puff} Inhale 2 [facility] propionate 1-09 Puffs ity of (FLOVENT 00:00: every 12 [place] HFA) 110 00 (twelve) Medical mcg/actuati hours. Branch on inhaler Rinse mouth after each use. levalbutero 2020-09 Yes [id number] .63mg Inhale [facility] l 0.63 mg/3 1-09 0.63 mg 3 ity of mL 00:00: (three) [place] nebulizer 00 times Medical solution daily as Branch needed for Wheezing or Shortness of Breath. clotrimazol 2020-09 Yes [id number] Apply to [facility] e-betametha -09 area(s) 2 ity of sone cream 00:00: (two) [place] 00 times Medical daily. Branch cyclobenzap 2020-09 Yes [id number] TAKE 1 [facility] rine 5 mg 1-09 TABLET BY ity o f tablet 00:00: MOUTH [place] 00 EVERY 8 Medical HOURS Branch NEEDED econazole 2020-09 Yes [id number] Apply to [facility] nitrate 1 % -09 area(s) 2 ity of cream 00:00: (two) [place] 00 times Medical daily. Branch albuterol 2020-09 Yes [id number] 2{puff} Inhale 2 [facility] (PROAIR 1-09 Puffs ity of HFA) 90 00:00: every 6 [place] mcg/actuati 00 (six) Medical on inhaler hours as Branc h needed for Wheezing or Shortness of Breath. triamcinolo 2020-09 Yes [id number] Apply to [facility] ne 0.025 % - area(s) 3 ity of ointment 00:00: (three) [place] 00 times Medical daily. For Branch itching cyanocobala 2020-09 Yes [id number] 1000ug 1 mL by [facility] min 1,000 1-09 Intramuscu ity of mcg/mL 00:00: lar route [place] injection 00 every 2 Medical (two) Branch weeks. levothyroxi 2020-09 Yes [id number] 50ug Take 1 [facility] ne 50 mcg -09 tablet by ity o f tablet 00:00: mouth [place] 00 every Medical morning. Branch fluticasone 2020-09 Yes [id number] 2{puff} Inhale 2 [facility] propionate 1-09 Puffs ity of (FLOVENT 00:00: every 12 [place] HFA) 110 00 (twelve) Medical mcg/actuati hours. Branch on inhaler Rinse mouth after each use. levalbutero 2020-09 Yes [id number] .63mg Inhale [facility] l 0.63 mg/3 1-09 0.63 mg 3 ity of mL 00:00: (three) [place] nebulizer 00 times Medical solution daily as Branch needed for Wheezing or Shortness of Breath. clotrimazol 2020-09 Yes [id number] Apply to [facility] e-betametha -09 area(s) 2 ity of sone cream 00:00: (two) [place] 00 times Medical daily. Branch cyclobenzap 2020-09 Yes [id number] TAKE 1 [facility] rine 5 mg -09 TABLET BY ity o f tablet 00:00: MOUTH [place] 00 EVERY 8 Medical HOURS Branch NEEDED econazole 2020-09 Yes [id number] Apply to [facility] nitrate 1 % 09 area(s) 2 ity of cream 00:00: (two) [place] 00 times Medical daily. Branch albuterol 2020-09 Yes [id number] 2{puff} Inhale 2 [facility] (PROAIR 1-09 Puffs ity of HFA) 90 00:00: every 6 [place] mcg/actuati 00 (six) Medical on inhaler hours as Branc h needed for Wheezing or Shortness of Breath. triamcinolo 2020-09 Yes [id number] Apply to [facility] ne 0.025 % 10-04 area(s) 3 ity of ointment 00:00: (three) [place] 00 times Medical daily. For Branch itching cyanocobala 2020-09 Yes [id number] 1000ug 1 mL by [facility] min 1,000 -09 Intramuscu ity of mcg/mL 00:00: lar route [place] injection 00 every 2 Medical (two) Branch weeks. levothyroxi 2020-09 Yes [id number] 50ug Take 1 [facility] ne 50 mcg -09 tablet by ity o f tablet 00:00: mouth [place] 00 every Medical morning. Branch fluticasone 2020-09 Yes [id number] 2{puff} Inhale 2 [facility] propionate 1-09 Puffs ity of (FLOVENT 00:00: every 12 [place] HFA) 110 00 (twelve) Medical mcg/actuati hours. Branch on inhaler Rinse mouth after each use. levalbutero 2020-09 Yes [id number] .63mg Inhale [facility] l 0.63 mg/3 1-09 0.63 mg 3 ity of mL 00:00: (three) [place] nebulizer 00 times Medical solution daily as Branch needed for Wheezing or Shortness of Breath. clotrimazol 2020-09 Yes [id number] Apply to [facility] e-betametha -09 area(s) 2 ity of sone cream 00:00: (two) [place] 00 times Medical daily. Branch cyclobenzap 2020-09 Yes [id number] TAKE 1 [facility] rine 5 mg 1-09 TABLET BY ity o f tablet 00:00: MOUTH [place] 00 EVERY 8 Medical HOURS Branch NEEDED econazole 2020-09 Yes [id number] Apply to [facility] nitrate 1 % -09 area(s) 2 ity of cream 00:00: (two) [place] 00 times Medical daily. Branch albuterol 2020-09 Yes [id number] 2{puff} Inhale 2 [facility] (PROAIR 1-09 Puffs ity of HFA) 90 00:00: every 6 [place] mcg/actuati 00 (six) Medical on inhaler hours as Branc h needed for Wheezing or Shortness of Breath. triamcinolo 2020-09 Yes [id number] Apply to [facility] ne 0.025 % 10-04 area(s) 3 ity of ointment 00:00: (three) [place] 00 times Medical daily. For Branch itching cyanocobala 2020-09 Yes [id number] 1000ug 1 mL by [facility] min 1,000 -09 Intramuscu ity of mcg/mL 00:00: lar route [place] injection 00 every 2 Medical (two) Branch weeks. levothyroxi 2020-09 Yes [id number] 50ug Take 1 [facility] ne 50 mcg -09 tablet by ity o f tablet 00:00: mouth [place] 00 every Medical morning. Branch fluticasone 2020-09 Yes [id number] 2{puff} Inhale 2 [facility] propionate 1-09 Puffs ity of (FLOVENT 00:00: every 12 [place] HFA) 110 00 (twelve) Medical mcg/actuati hours. Branch on inhaler Rinse mouth after each use. levalbutero 2020-09 Yes [id number] .63mg Inhale [facility] l 0.63 mg/3 1-09 0.63 mg 3 ity of mL 00:00: (three) [place] nebulizer 00 times Medical solution daily as Branch needed for Wheezing or Shortness of Breath. clotrimazol 2020-09 Yes [id number] Apply to [facility] e-betametha -09 area(s) 2 ity of sone cream 00:00: (two) [place] 00 times Medical daily. Branch cyclobenzap 2020-09 Yes [id number] TAKE 1 [facility] rine 5 mg 1-09 TABLET BY ity o f tablet 00:00: MOUTH [place] 00 EVERY 8 Medical HOURS Branch NEEDED econazole 2020-09 Yes [id number] Apply to [facility] nitrate 1 % 1-09 area(s) 2 ity of cream 00:00: (two) [place] 00 times Medical daily. Branch albuterol 2020-09 Yes [id number] 2{puff} Inhale 2 [facility] (PROAIR 1-09 Puffs ity of HFA) 90 00:00: every 6 [place] mcg/actuati 00 (six) Medical on inhaler hours as Branc h needed for Wheezing or Shortness of Breath. triamcinolo 2020-09 Yes [id number] Apply to [facility] ne 0.025 % -09 area(s) 3 ity of ointment 00:00: (three) [place] 00 times Medical daily. For Branch itching cyanocobala 2020-09 Yes [id number] 1000ug 1 mL by [facility] min 1,000 1-09 Intramuscu ity of mcg/mL 00:00: lar route [place] injection 00 every 2 Medical (two) Branch weeks. levothyroxi 2020-09 Yes [id number] 50ug Take 1 [facility] ne 50 mcg 1-09 tablet by ity o f tablet 00:00: mouth [place] 00 every Medical morning. Branch fluticasone 2020-09 Yes [id number] 2{puff} Inhale 2 [facility] propionate 1-09 Puffs ity of (FLOVENT 00:00: every 12 [place] HFA) 110 00 (twelve) Medical mcg/actuati hours. Branch on inhaler Rinse mouth after each use. levalbutero 2020-09 Yes [id number] .63mg Inhale [facility] l 0.63 mg/3 1-09 0.63 mg 3 ity of mL 00:00: (three) [place] nebulizer 00 times Medical solution daily as Branch needed for Wheezing or Shortness of Breath. clotrimazol 2020-09 Yes [id number] Apply to [facility] e-betametha 1-09 area(s) 2 ity of sone cream 00:00: (two) [place] 00 times Medical daily. Branch cyclobenzap 2020-09 Yes [id number] TAKE 1 [facility] rine 5 mg 1-09 TABLET BY ity o f tablet 00:00: MOUTH [place] 00 EVERY 8 Medical HOURS Branch NEEDED econazole 2020-09 Yes [id number] Apply to [facility] nitrate 1 % -09 area(s) 2 ity of cream 00:00: (two) [place] 00 times Medical daily. Branch albuterol 2020-09 Yes [id number] 2{puff} Inhale 2 [facility] (PROAIR 1-09 Puffs ity of HFA) 90 00:00: every 6 [place] mcg/actuati 00 (six) Medical on inhaler hours as Branc h needed for Wheezing or Shortness of Breath. triamcinolo 2020-09 Yes [id number] Apply to [facility] ne 0.025 % -09 area(s) 3 ity of ointment 00:00: (three) [place] 00 times Medical daily. For Branch itching cyanocobala 2020-09 Yes [id number] 1000ug 1 mL by [facility] min 1,000 1-09 Intramuscu ity of mcg/mL 00:00: lar route [place] injection 00 every 2 Medical (two) Branch weeks. levothyroxi 2020-09 Yes [id number] 50ug Take 1 [facility] ne 50 mcg -09 tablet by ity o f tablet 00:00: mouth [place] 00 every Medical morning. Branch fluticasone 2020-09 Yes [id number] 2{puff} Inhale 2 [facility] propionate 1-09 Puffs ity of (FLOVENT 00:00: every 12 [place] HFA) 110 00 (twelve) Medical mcg/actuati hours. Branch on inhaler Rinse mouth after each use. levalbutero 2020-09 Yes [id number] .63mg Inhale [facility] l 0.63 mg/3 1-09 0.63 mg 3 ity of mL 00:00: (three) [place] nebulizer 00 times Medical solution daily as Branch needed for Wheezing or Shortness of Breath. clotrimazol 2020-09 Yes [id number] Apply to [facility] e-betametha -09 area(s) 2 ity of sone cream 00:00: (two) [place] 00 times Medical daily. Branch cyclobenzap 2020-09 Yes [id number] TAKE 1 [facility] rine 5 mg 1-09 TABLET BY ity o f tablet 00:00: MOUTH [place] 00 EVERY 8 Medical HOURS Branch NEEDED econazole 2020-09 Yes [id number] Apply to [facility] nitrate 1 % 1-09 area(s) 2 ity of cream 00:00: (two) [place] 00 times Medical daily. Branch albuterol 2020-09 Yes [id number] 2{puff} Inhale 2 [facility] (PROAIR 1-09 Puffs ity of HFA) 90 00:00: every 6 [place] mcg/actuati 00 (six) Medical on inhaler hours as Branc h needed for Wheezing or Shortness of Breath. triamcinolo 2020-09 Yes [id number] Apply to [facility] ne 0.025 % -09 area(s) 3 ity of ointment 00:00: (three) [place] 00 times Medical daily. For Branch itching cyanocobala 2020-09 Yes [id number] 1000ug 1 mL by [facility] min 1,000 -09 Intramuscu ity of mcg/mL 00:00: lar route [place] injection 00 every 2 Medical (two) Branch weeks. levothyroxi 2020-09 Yes [id number] 50ug Take 1 [facility] ne 50 mcg -09 tablet by ity o f tablet 00:00: mouth [place] 00 every Medical morning. Branch fluticasone 2020-09 Yes [id number] 2{puff} Inhale 2 [facility] propionate 1-09 Puffs ity of (FLOVENT 00:00: every 12 [place] HFA) 110 00 (twelve) Medical mcg/actuati hours. Branch on inhaler Rinse mouth after each use. levalbutero 2020-09 Yes [id number] .63mg Inhale [facility] l 0.63 mg/3 1-09 0.63 mg 3 ity of mL 00:00: (three) [place] nebulizer 00 times Medical solution daily as Branch needed for Wheezing or Shortness of Breath. clotrimazol 2020-09 Yes [id number] Apply to [facility] e-betametha -09 area(s) 2 ity of sone cream 00:00: (two) [place] 00 times Medical daily. Branch cyclobenzap 2020-09 Yes [id number] TAKE 1 [facility] rine 5 mg -09 TABLET BY ity o f tablet 00:00: MOUTH [place] 00 EVERY 8 Medical HOURS Branch NEEDED econazole 2020-09 Yes [id number] Apply to [facility] nitrate 1 % -09 area(s) 2 ity of cream 00:00: (two) [place] 00 times Medical daily. Branch albuterol 2020-09 Yes [id number] 2{puff} Inhale 2 [facility] (PROAIR 1-09 Puffs ity of HFA) 90 00:00: every 6 [place] mcg/actuati 00 (six) Medical on inhaler hours as Branc h needed for Wheezing or Shortness of Breath. triamcinolo 2020-09 Yes [id number] Apply to [facility] ne 0.025 % 1-09 area(s) 3 ity of ointment 00:00: (three) [place] 00 times Medical daily. For Branch itching cyanocobala 2020-09 Yes [id number] 1000ug 1 mL by [facility] min 1,000 1-09 Intramuscu ity of mcg/mL 00:00: lar route [place] injection 00 every 2 Medical (two) Branch weeks. levothyroxi 2020-09 Yes [id number] 50ug Take 1 [facility] ne 50 mcg 1-09 tablet by ity o f tablet 00:00: mouth [place] 00 every Medical morning. Branch fluticasone 2020-09 Yes [id number] 2{puff} Inhale 2 [facility] propionate 1-09 Puffs ity of (FLOVENT 00:00: every 12 [place] HFA) 110 00 (twelve) Medical mcg/actuati hours. Branch on inhaler Rinse mouth after each use. levalbutero 2020-09 Yes [id number] .63mg Inhale [facility] l 0.63 mg/3 1-09 0.63 mg 3 ity of mL 00:00: (three) [place] nebulizer 00 times Medical solution daily as Branch needed for Wheezing or Shortness of Breath. clotrimazol 2020-09 Yes [id number] Apply to [facility] e-betametha 1-09 area(s) 2 ity of sone cream 00:00: (two) [place] 00 times Medical daily. Branch cyclobenzap 2020-09 Yes [id number] TAKE 1 [facility] rine 5 mg 1-09 TABLET BY ity o f tablet 00:00: MOUTH [place] 00 EVERY 8 Medical HOURS Branch NEEDED econazole 2020-09 Yes [id number] Apply to [facility] nitrate 1 % -09 area(s) 2 ity of cream 00:00: (two) [place] 00 times Medical daily. Branch albuterol 2020-09 Yes [id number] 2{puff} Inhale 2 [facility] (PROAIR 1-09 Puffs ity of HFA) 90 00:00: every 6 [place] mcg/actuati 00 (six) Medical on inhaler hours as Branc h needed for Wheezing or Shortness of Breath. triamcinolo 2020-09 Yes [id number] Apply to [facility] ne 0.025 % 09 area(s) 3 ity of ointment 00:00: (three) [place] 00 times Medical daily. For Branch itching cyanocobala 2020-09 Yes [id number] 1000ug 1 mL by [facility] min 1,000 -09 Intramuscu ity of mcg/mL 00:00: lar route [place] injection 00 every 2 Medical (two) Branch weeks. levothyroxi 2020-09 Yes [id number] 50ug Take 1 [facility] ne 50 mcg 09 tablet by ity o f tablet 00:00: mouth [place] 00 every Medical morning. Branch fluticasone 2020-09 Yes [id number] 2{puff} Inhale 2 [facility] propionate -09 Puffs ity of (FLOVENT 00:00: every 12 [place] HFA) 110 00 (twelve) Medical mcg/actuati hours. Branch on inhaler Rinse mouth after each use. levalbutero 2020-09 Yes [id number] .63mg Inhale [facility] l 0.63 mg/3 1-09 0.63 mg 3 ity of mL 00:00: (three) [place] nebulizer 00 times Medical solution daily as Branch needed for Wheezing or Shortness of Breath. clotrimazol 2020-09 Yes [id number] Apply to [facility] e-betametha 10-04 area(s) 2 ity of sone cream 00:00: (two) [place] 00 times Medical daily. Branch cyclobenzap 2020-09 Yes [id number] TAKE 1 [facility] rine 5 mg -09 TABLET BY ity o f tablet 00:00: MOUTH [place] 00 EVERY 8 Medical HOURS Branch NEEDED econazole 2020-09 Yes [id number] Apply to [facility] nitrate 1 % -09 area(s) 2 ity of cream 00:00: (two) [place] 00 times Medical daily. Branch albuterol 2020-09 Yes [id number] 2{puff} Inhale 2 [facility] (PROAIR 1-09 Puffs ity of HFA) 90 00:00: every 6 [place] mcg/actuati 00 (six) Medical on inhaler hours as Branc h needed for Wheezing or Shortness of Breath. triamcinolo 2020-09 Yes [id number] Apply to [facility] ne 0.025 % 10-04 area(s) 3 ity of ointment 00:00: (three) [place] 00 times Medical daily. For Branch itching cyanocobala 2020-09 Yes [id number] 1000ug 1 mL by [facility] min 1,000 -09 Intramuscu ity of mcg/mL 00:00: lar route [place] injection 00 every 2 Medical (two) Branch weeks. levothyroxi 2020-09 Yes [id number] 50ug Take 1 [facility] ne 50 mcg 09 tablet by ity o f tablet 00:00: mouth [place] 00 every Medical morning. Branch fluticasone 2020-09 Yes [id number] 2{puff} Inhale 2 [facility] propionate -09 Puffs ity of (FLOVENT 00:00: every 12 [place] HFA) 110 00 (twelve) Medical mcg/actuati hours. Branch on inhaler Rinse mouth after each use. levalbutero 2020-09 Yes [id number] .63mg Inhale [facility] l 0.63 mg/3 -09 0.63 mg 3 ity of mL 00:00: (three) [place] nebulizer 00 times Medical solution daily as Branch needed for Wheezing or Shortness of Breath. clotrimazol 2020-09 Yes [id number] Apply to [facility] e-betametha 10-04 area(s) 2 ity of sone cream 00:00: (two) [place] 00 times Medical daily. Branch cyclobenzap 2020-09 Yes [id number] TAKE 1 [facility] rine 5 mg -09 TABLET BY ity o f tablet 00:00: MOUTH [place] 00 EVERY 8 Medical HOURS Branch NEEDED econazole 2020-09 Yes [id number] Apply to [facility] nitrate 1 % -09 area(s) 2 ity of cream 00:00: (two) [place] 00 times Medical daily. Branch albuterol 2020-09 Yes [id number] 2{puff} Inhale 2 [facility] (PROAIR 1-09 Puffs ity of HFA) 90 00:00: every 6 [place] mcg/actuati 00 (six) Medical on inhaler hours as Branc h needed for Wheezing or Shortness of Breath. triamcinolo 2020-09 Yes [id number] Apply to [facility] ne 0.025 % -09 area(s) 3 ity of ointment 00:00: (three) [place] 00 times Medical daily. For Branch itching cyanocobala 2020-09 Yes [id number] 1000ug 1 mL by [facility] min 1,000 -09 Intramuscu ity of mcg/mL 00:00: lar route [place] injection 00 every 2 Medical (two) Branch weeks. levothyroxi 2020-09 Yes [id number] 50ug Take 1 [facility] ne 50 mcg -09 tablet by ity o f tablet 00:00: mouth [place] 00 every Medical morning. Branch fluticasone 2020-09 Yes [id number] 2{puff} Inhale 2 [facility] propionate 1-09 Puffs ity of (FLOVENT 00:00: every 12 [place] HFA) 110 00 (twelve) Medical mcg/actuati hours. Branch on inhaler Rinse mouth after each use. levalbutero 2020-09 Yes [id number] .63mg Inhale [facility] l 0.63 mg/3 1-09 0.63 mg 3 ity of mL 00:00: (three) [place] nebulizer 00 times Medical solution daily as Branch needed for Wheezing or Shortness of Breath. clotrimazol 2020-09 Yes [id number] Apply to [facility] e-betametha 10-04 area(s) 2 ity of sone cream 00:00: (two) [place] 00 times Medical daily. Branch cyclobenzap 2020-09 Yes [id number] TAKE 1 [facility] rine 5 mg -09 TABLET BY ity o f tablet 00:00: MOUTH [place] 00 EVERY 8 Medical HOURS Branch NEEDED econazole 2020-09 Yes [id number] Apply to [facility] nitrate 1 % -09 area(s) 2 ity of cream 00:00: (two) [place] 00 times Medical daily. Branch albuterol 2020-09 Yes [id number] 2{puff} Inhale 2 [facility] (PROAIR 1-09 Puffs ity of HFA) 90 00:00: every 6 [place] mcg/actuati 00 (six) Medical on inhaler hours as Branc h needed for Wheezing or Shortness of Breath. triamcinolo 2020-09 Yes [id number] Apply to [facility] ne 0.025 % 1-09 area(s) 3 ity of ointment 00:00: (three) [place] 00 times Medical daily. For Branch itching cyanocobala 2020-09 Yes [id number] 1000ug 1 mL by [facility] min 1,000 1-09 Intramuscu ity of mcg/mL 00:00: lar route [place] injection 00 every 2 Medical (two) Branch weeks. fluticasone 2020-09 Yes [id number] 2{puff} Inhale 2 [facility] propionate 1-09 Puffs ity of (FLOVENT 00:00: every 12 [place] HFA) 110 00 (twelve) Medical mcg/actuati hours. Branch on inhaler Rinse mouth after each use. levalbutero 2020-09 Yes [id number] .63mg Inhale [facility] l 0.63 mg/3 1-09 0.63 mg 3 ity of mL 00:00: (three) [place] nebulizer 00 times Medical solution daily as Branch needed for Wheezing or Shortness of Breath. clotrimazol 2020-09 Yes [id number] Apply to [facility] e-betametha -09 area(s) 2 ity of sone cream 00:00: (two) [place] 00 times Medical daily. Branch cyclobenzap 2020-09 Yes [id number] TAKE 1 [facility] rine 5 mg 10-04 TABLET BY ity o f tablet 00:00: MOUTH [place] 00 EVERY 8 Medical HOURS Branch NEEDED econazole 2020-09 Yes [id number] Apply to [facility] nitrate 1 % -09 area(s) 2 ity of cream 00:00: (two) [place] 00 times Medical daily. Branch albuterol 2020-09 Yes [id number] 2{puff} Inhale 2 [facility] (PROAIR 1-09 Puffs ity of HFA) 90 00:00: every 6 [place] mcg/actuati 00 (six) Medical on inhaler hours as Branc h needed for Wheezing or Shortness of Breath. triamcinolo 2020-09 Yes [id number] Apply to [facility] ne 0.025 % 1-09 area(s) 3 ity of ointment 00:00: (three) [place] 00 times Medical daily. For Branch itching cyanocobala 2020-09 Yes [id number] 1000ug 1 mL by [facility] min 1,000 1-09 Intramuscu ity of mcg/mL 00:00: lar route [place] injection 00 every 2 Medical (two) Branch weeks. fluticasone 2020-09 Yes [id number] 2{puff} Inhale 2 [facility] propionate 1-09 Puffs ity of (FLOVENT 00:00: every 12 [place] HFA) 110 00 (twelve) Medical mcg/actuati hours. Branch on inhaler Rinse mouth after each use. levalbutero 2020-09 Yes [id number] .63mg Inhale [facility] l 0.63 mg/3 1-09 0.63 mg 3 ity of mL 00:00: (three) [place] nebulizer 00 times Medical solution daily as Branch needed for Wheezing or Shortness of Breath. clotrimazol 2020-09 Yes [id number] Apply to [facility] e-betametha -09 area(s) 2 ity of sone cream 00:00: (two) [place] 00 times Medical daily. Branch cyclobenzap 2020-09 Yes [id number] TAKE 1 [facility] rine 5 mg 10-04 TABLET BY ity o f tablet 00:00: MOUTH [place] 00 EVERY 8 Medical HOURS Branch NEEDED econazole 2020-09 Yes [id number] Apply to [facility] nitrate 1 % - area(s) 2 ity of cream 00:00: (two) [place] 00 times Medical daily. Branch albuterol 2020-09 Yes [id number] 2{puff} Inhale 2 [facility] (PROAIR 1-09 Puffs ity of HFA) 90 00:00: every 6 [place] mcg/actuati 00 (six) Medical on inhaler hours as Branc h needed for Wheezing or Shortness of Breath. triamcinolo 2020-09 Yes [id number] Apply to [facility] ne 0.025 % 1-09 area(s) 3 ity of ointment 00:00: (three) [place] 00 times Medical daily. For Branch itching cyanocobala 2020-09 Yes [id number] 1000ug 1 mL by [facility] min 1,000 1-09 Intramuscu ity of mcg/mL 00:00: lar route [place] injection 00 every 2 Medical (two) Branch weeks. levalbutero 2020-09 Yes [id number] .63mg Inhale [facility] l 0.63 mg/3 1-09 0.63 mg 3 ity of mL 00:00: (three) [place] nebulizer 00 times Medical solution daily as Branch needed for Wheezing or Shortness of Breath. cyclobenzap 2020-09 Yes [id number] TAKE 1 [facility] rine 5 mg 1-09 TABLET BY ity o f tablet 00:00: MOUTH [place] 00 EVERY 8 Medical HOURS Branch NEEDED albuterol 2020-09 Yes [id number] 2{puff} Inhale 2 [facility] (PROAIR 1-09 Puffs ity of HFA) 90 00:00: every 6 [place] mcg/actuati 00 (six) Medical on inhaler hours as Branc h needed for Wheezing or Shortness of Breath. cyanocobala 2020-09 Yes [id number] 1000ug 1 mL by [facility] min 1,000 1-09 Intramuscu ity of mcg/mL 00:00: lar route [place] injection 00 every 2 Medical (two) Branch weeks. levalbutero 2020-09 Yes [id number] .63mg Inhale [facility] 0.63 mg/3 1-09 0.63 mg 3 ity of mL 00:00: (three) [place] nebulizer 00 times Medical solution daily as Branch needed for Wheezing or Shortness of Breath. cyclobenzap 2020-09 Yes [id number] TAKE 1 [facility] rine 5 mg 1-09 TABLET BY ity o f tablet 00:00: MOUTH [place] 00 EVERY 8 Medical HOURS Branch NEEDED albuterol 2020-09 Yes [id number] 2{puff} Inhale 2 [facility] (PROAIR 1-09 Puffs ity of HFA) 90 00:00: every 6 [place] mcg/actuati 00 (six) Medical on inhaler hours as Branc h needed for Wheezing or Shortness of Breath. cyanocobala 2020-09 Yes [id number] 1000ug 1 mL by [facility] min 1,000 1-09 Intramuscu it[facility] of mcg/mL 00:00: lar route [place] injection 00 every 2 Medical (two) Branch weeks. levalbutero 2020-09 Yes [id number] .63mg Inhale [facility] 0.63 mg/3 1-09 0.63 mg 3 [facility]y of mL 00:00: (three) [place] nebulizer 00 times Medical solution daily as Branch needed for Wheezing or Shortness of Breath. cyclobenzap 2020-09 Yes [id number] TAKE 1 [facility] rine 5 mg 1-09 TABLET BY ity o f tablet 00:00: MOUTH [place] 00 EVERY 8 Medical HOURS Branch NEEDED albuterol 2020-09 Yes [id number] 2{puff} Inhale 2 [facility] (PROAIR 1-09 Puffs ity of HFA) 90 00:00: every 6 [place] mcg/actuati 00 (six) Medical on inhaler hours as Branc h needed for Wheezing or Shortness of Breath. cyanocobala 2020-09 Yes [id number] 1000ug 1 mL by [facility] min 1,000 1-09 Intramuscu [facility] of mcg/mL 00:00: lar route [place] injection 00 every 2 Medical (two) Branch weeks. levalbutero 2020-09 Yes [id number] .63mg Inhale [facility] 0.63 mg/3 1-09 0.63 mg 3 ity of mL 00:00: (three) [place] nebulizer 00 times Medical solution daily as Branch needed for Wheezing or Shortness of Breath. cyclobenzap 2020-09 Yes [id number] TAKE 1 [facility] rine 5 mg 1-09 TABLET BY ity o f tablet 00:00: MOUTH [place] 00 EVERY 8 Medical HOURS Branch NEEDED albuterol 2020-09 Yes [id number] 2{puff} Inhale 2 [facility] (PROAIR 1-09 Puffs ity of HFA) 90 00:00: every 6 [place] mcg/actuati 00 (six) Medical on inhaler hours as Branc h needed for Wheezing or Shortness of Breath. cyanocobala 2020-09 Yes [id number] 1000ug 1 mL by [facility] min 1,000 1-09 Intramuscu [facility] of mcg/mL 00:00: lar route [place] injection 00 every 2 Medical (two) Branch weeks. levalbutero 2020-09 Yes [id number] .63mg Inhale [facility] 0.63 mg/3 1-09 0.63 mg 3 [facility]y of mL 00:00: (three) [place] nebulizer 00 times Medical solution daily as Branch needed for Wheezing or Shortness of Breath. cyclobenzap 2020-09 Yes [id number] TAKE 1 [facility] rine 5 mg 1-09 TABLET BY ity o f tablet 00:00: MOUTH [place] 00 EVERY 8 Medical HOURS Branch NEEDED albuterol 2020-09 Yes [id number] 2{puff} Inhale 2 [facility] (PROAIR 1-09 Puffs ity of HFA) 90 00:00: every 6 [place] mcg/actuati 00 (six) Medical on inhaler hours as Branc h needed for Wheezing or Shortness of Breath. cyanocobala 2020-09 Yes [id number] 1000ug 1 mL by [facility] min 1,000 1-09 Intramuscu [facility] of mcg/mL 00:00: lar route [place] injection 00 every 2 Medical (two) Branch weeks. levalbutero 2020-09 Yes [id number] .63mg Inhale [facility] 0.63 mg/3 1-09 0.63 mg 3 ity of mL 00:00: (three) [place] nebulizer 00 times Medical solution daily as Branch needed for Wheezing or Shortness of Breath. cyclobenzap 2020-09 Yes [id number] TAKE 1 [facility] rine 5 mg 1-09 TABLET BY ity o f tablet 00:00: MOUTH [place] 00 EVERY 8 Medical HOURS Branch NEEDED albuterol 2020-09 Yes [id number] 2{puff} Inhale 2 [facility] (PROAIR 1-09 Puffs ity of HFA) 90 00:00: every 6 [place] mcg/actuati 00 (six) Medical on inhaler hours as Branc h needed for Wheezing or Shortness of Breath. cyanocobala 2020-09 Yes [id number] 1000ug 1 mL by [facility] min 1,000 1-09 Intramuscu [facility] of mcg/mL 00:00: lar route [place] injection 00 every 2 Medical (two) Branch weeks. levalbutero 2020-09 Yes [id number] .63mg Inhale [facility] 0.63 mg/3 1-09 0.63 mg 3 ity of mL 00:00: (three) [place] nebulizer 00 times Medical solution daily as Branch needed for Wheezing or Shortness of Breath. cyclobenzap 2020-09 Yes [id number] TAKE 1 [facility] rine 5 mg 1-09 TABLET BY ity o f tablet 00:00: MOUTH [place] 00 EVERY 8 Medical HOURS Branch NEEDED albuterol 2020-09 Yes [id number] 2{puff} Inhale 2 [facility] (PROAIR 1-09 Puffs ity of HFA) 90 00:00: every 6 [place] mcg/actuati 00 (six) Medical on inhaler hours as Branc h needed for Wheezing or Shortness of Breath. cyanocobala 2020-09 Yes [id number] 1000ug 1 mL by [facility] min 1,000 1-09 Intramuscu [facility] of mcg/mL 00:00: lar route [place] injection 00 every 2 Medical (two) Branch weeks. levalbutero 2020-09 Yes [id number] .63mg Inhale [facility] 0.63 mg/3 1-09 0.63 mg 3 ity of mL 00:00: (three) [place] nebulizer 00 times Medical solution daily as Branch needed for Wheezing or Shortness of Breath. cyclobenzap 2020-09 Yes [id number] TAKE 1 [facility] rine 5 mg 1-09 TABLET BY ity o f tablet 00:00: MOUTH [place] 00 EVERY 8 Medical HOURS Branch NEEDED albuterol 2020-09 Yes [id number] 2{puff} Inhale 2 [facility] (PROAIR 1-09 Puffs ity of HFA) 90 00:00: every 6 [place] mcg/actuati 00 (six) Medical on inhaler hours as Branc h needed for Wheezing or Shortness of Breath. cyanocobala 2020-09 Yes [id number] 1000ug 1 mL by [facility] min 1,000 1-09 Intramuscu [facility] of mcg/mL 00:00: lar route [place] injection 00 every 2 Medical (two) Branch weeks. levalbutero 2020-09 Yes [id number] .63mg Inhale [facility] 0.63 mg/3 1-09 0.63 mg 3 ity of mL 00:00: (three) [place] nebulizer 00 times Medical solution daily as Branch needed for Wheezing or Shortness of Breath. cyclobenzap 2020-09 Yes [id number] TAKE 1 [facility] rine 5 mg 1-09 TABLET BY ity o f tablet 00:00: MOUTH [place] 00 EVERY 8 Medical HOURS Branch NEEDED albuterol 2020-09 Yes [id number] 2{puff} Inhale 2 [facility] (PROAIR 1-09 Puffs ity of HFA) 90 00:00: every 6 [place] mcg/actuati 00 (six) Medical on inhaler hours as Branc h needed for Wheezing or Shortness of Breath. levalbutero 2020-09 Yes [id number] .63mg Inhale [facility] 0.63 mg/3 1-09 0.63 mg 3 ity of mL 00:00: (three) [place] nebulizer 00 times Medical solution daily as Branch needed for Wheezing or Shortness of Breath. cyclobenzap 2020-09 Yes [id number] TAKE 1 [facility] rine 5 mg 1-09 TABLET BY ity o f tablet 00:00: MOUTH [place] 00 EVERY 8 Medical HOURS Branch NEEDED albuterol 2020-09 Yes [id number] 2{puff} Inhale 2 [facility] (PROAIR 1-09 Puffs ity of HFA) 90 00:00: every 6 [place] mcg/actuati 00 (six) Medical on inhaler hours as Branc h needed for Wheezing or Shortness of Breath. levalbutero 2020-09 Yes [id number] .63mg Inhale [facility] 0.63 mg/3 1-09 0.63 mg 3 ity of mL 00:00: (three) [place] nebulizer 00 times Medical solution daily as Branch needed for Wheezing or Shortness of Breath. cyclobenzap 2020-09 Yes [id number] TAKE 1 [facility] rine 5 mg 1-09 TABLET BY ity o f tablet 00:00: MOUTH [place] 00 EVERY 8 Medical HOURS Branch NEEDED albuterol 2020-09 Yes [id number] 2{puff} Inhale 2 [facility] (PROAIR 1-09 Puffs ity of HFA) 90 00:00: every 6 [place] mcg/actuati 00 (six) Medical on inhaler hours as Branc h needed for Wheezing or Shortness of Breath. levalbutero 2020-09 Yes [id number] .63mg Inhale [facility] 0.63 mg/3 1-09 0.63 mg 3 ity of mL 00:00: (three) [place] nebulizer 00 times Medical solution daily as Branch needed for Wheezing or Shortness of Breath. cyclobenzap 2020-09 Yes [id number] TAKE 1 [facility] rine 5 mg 1-09 TABLET BY ity o f tablet 00:00: MOUTH [place] 00 EVERY 8 Medical HOURS Branch NEEDED albuterol 2020-09 Yes [id number] 2{puff} Inhale 2 [facility] (PROAIR 1-09 Puffs ity of HFA) 90 00:00: every 6 [place] mcg/actuati 00 (six) Medical on inhaler hours as Branc h needed for Wheezing or Shortness of Breath. levalbutero 2020-09 Yes [id number] .63mg Inhale [facility] 0.63 mg/3 1-09 0.63 mg 3 ity of mL 00:00: (three) [place] nebulizer 00 times Medical solution daily as Branch needed for Wheezing or Shortness of Breath. cyclobenzap 2020-09 Yes [id number] TAKE 1 [facility] rine 5 mg 1-09 TABLET BY ity o f tablet 00:00: MOUTH [place] 00 EVERY 8 Medical HOURS Branch NEEDED albuterol 2020-09 Yes [id number] 2{puff} Inhale 2 [facility] (PROAIR 1-09 Puffs ity of HFA) 90 00:00: every 6 [place] mcg/actuati 00 (six) Medical on inhaler hours as Branc h needed for Wheezing or Shortness of Breath. levalbutero 2020-09 Yes [id number] .63mg Inhale [facility] 0.63 mg/3 1-09 0.63 mg 3 ity of mL 00:00: (three) [place] nebulizer 00 times Medical solution daily as Branch needed for Wheezing or Shortness of Breath. cyclobenzap 2020-09 Yes [id number] TAKE 1 [facility] rine 5 mg 1-09 TABLET BY ity o f tablet 00:00: MOUTH [place] 00 EVERY 8 Medical HOURS Branch NEEDED albuterol 2020-09 Yes [id number] 2{puff} Inhale 2 [facility] (PROAIR 1-09 Puffs ity of HFA) 90 00:00: every 6 [place] mcg/actuati 00 (six) Medical on inhaler hours as Branc h needed for Wheezing or Shortness of Breath. levalbutero 2020-09 Yes [id number] .63mg Inhale [facility] 0.63 mg/3 1-09 0.63 mg 3 ity of mL 00:00: (three) [place] nebulizer 00 times Medical solution daily as Branch needed for Wheezing or Shortness of Breath. cyclobenzap 2020-09 Yes [id number] TAKE 1 [facility] rine 5 mg 1-09 TABLET BY ity o f tablet 00:00: MOUTH [place] 00 EVERY 8 Medical HOURS Branch NEEDED albuterol 2020-09 Yes [id number] 2{puff} Inhale 2 [facility] (PROAIR 1-09 Puffs ity of HFA) 90 00:00: every 6 [place] mcg/actuati 00 (six) Medical on inhaler hours as Branc h needed for Wheezing or Shortness of Breath. levalbutero 2020-09 Yes [id number] .63mg Inhale [facility] 0.63 mg/3 1-09 0.63 mg 3 ity of mL 00:00: (three) [place] nebulizer 00 times Medical solution daily as Branch needed for Wheezing or Shortness of Breath. cyclobenzap 2020-09 Yes [id number] TAKE 1 [facility] rine 5 mg 1-09 TABLET BY ity o f tablet 00:00: MOUTH [place] 00 EVERY 8 Medical HOURS Branch NEEDED albuterol 2020-09 Yes [id number] 2{puff} Inhale 2 [facility] (PROAIR 1-09 Puffs ity of HFA) 90 00:00: every 6 [place] mcg/actuati 00 (six) Medical on inhaler hours as Branc h needed for Wheezing or Shortness of Breath. levalbutero 2020-09 Yes [id number] .63mg Inhale [facility] 0.63 mg/3 1-09 0.63 mg 3 ity of mL 00:00: (three) [place] nebulizer 00 times Medical solution daily as Branch needed for Wheezing or Shortness of Breath. cyclobenzap 2020-09 Yes [id number] TAKE 1 [facility] rine 5 mg 1-09 TABLET BY ity o f tablet 00:00: MOUTH [place] 00 EVERY 8 Medical HOURS Branch NEEDED albuterol 2020-09 Yes [id number] 2{puff} Inhale 2 [facility] (PROAIR 1-09 Puffs ity of HFA) 90 00:00: every 6 [place] mcg/actuati 00 (six) Medical on inhaler hours as Branc h needed for Wheezing or Shortness of Breath. levalbutero 2020-09 Yes [id number] .63mg Inhale [facility] 0.63 mg/3 1-09 0.63 mg 3 ity of mL 00:00: (three) [place] nebulizer 00 times Medical solution daily as Branch needed for Wheezing or Shortness of Breath. cyclobenzap 2020-09 Yes [id number] TAKE 1 [facility] rine 5 mg 1-09 TABLET BY ity o f tablet 00:00: MOUTH [place] 00 EVERY 8 Medical HOURS Branch NEEDED albuterol 2020-09 Yes [id number] 2{puff} Inhale 2 [facility] (PROAIR 1-09 Puffs ity of HFA) 90 00:00: every 6 [place] mcg/actuati 00 (six) Medical on inhaler hours as Branc h needed for Wheezing or Shortness of Breath. levalbutero 2020-09 Yes [id number] .63mg Inhale [facility] 0.63 mg/3 1-09 0.63 mg 3 ity of mL 00:00: (three) [place] nebulizer 00 times Medical solution daily as Branch needed for Wheezing or Shortness of Breath. cyclobenzap 2020-09 Yes [id number] TAKE 1 [facility] rine 5 mg 1-09 TABLET BY ity o f tablet 00:00: MOUTH [place] 00 EVERY 8 Medical HOURS Branch NEEDED albuterol 2020-09 Yes [id number] 2{puff} Inhale 2 [facility] (PROAIR 1-09 Puffs ity of HFA) 90 00:00: every 6 [place] mcg/actuati 00 (six) Medical on inhaler hours as Branc h needed for Wheezing or Shortness of Breath. levalbutero 2020-09 Yes [id number] .63mg Inhale [facility] l 0.63 mg/3 1-09 0.63 mg 3 ity of mL 00:00: (three) [place] nebulizer 00 times Medical solution daily as Branch needed for Wheezing or Shortness of Breath. cyclobenzap 2020-09 Yes [id number] TAKE 1 [facility] rine 5 mg 1-09 TABLET BY ity o f tablet 00:00: MOUTH [place] 00 EVERY 8 Medical HOURS Branch NEEDED albuterol 2020-09 Yes [id number] 2{puff} Inhale 2 [facility] (PROAIR 1-09 Puffs ity of HFA) 90 00:00: every 6 [place] mcg/actuati 00 (six) Medical on inhaler hours as Branc h needed for Wheezing or Shortness of Breath. levalbutero 2020-09 Yes [id number] .63mg Inhale [facility] l 0.63 mg/3 1-09 0.63 mg 3 ity of mL 00:00: (three) [place] nebulizer 00 times Medical solution daily as Branch needed for Wheezing or Shortness of Breath. cyclobenzap 2020-09 Yes [id number] TAKE 1 [facility] rine 5 mg 1-09 TABLET BY ity o f tablet 00:00: MOUTH [place] 00 EVERY 8 Medical HOURS Branch NEEDED albuterol 2020-09 Yes [id number] 2{puff} Inhale 2 [facility] (PROAIR 1-09 Puffs ity of HFA) 90 00:00: every 6 [place] mcg/actuati 00 (six) Medical on inhaler hours as Branc h needed for Wheezing or Shortness of Breath. levalbutero 2020-09 Yes [id number] .63mg Inhale [facility] l 0.63 mg/3 1-09 0.63 mg 3 ity of mL 00:00: (three) [place] nebulizer 00 times Medical solution daily as Branch needed for Wheezing or Shortness of Breath. cyclobenzap 2020-09 Yes [id number] TAKE 1 [facility] rine 5 mg 1-09 TABLET BY ity o f tablet 00:00: MOUTH [place] 00 EVERY 8 Medical HOURS Branch NEEDED albuterol 2020-09 Yes [id number] 2{puff} Inhale 2 [facility] (PROAIR 1-09 Puffs ity of HFA) 90 00:00: every 6 [place] mcg/actuati 00 (six) Medical on inhaler hours as Branc h needed for Wheezing or Shortness of Breath. levalbutero 2020-09 Yes [id number] .63mg Inhale [facility] l 0.63 mg/3 1-09 0.63 mg 3 ity of mL 00:00: (three) [place] nebulizer 00 times Medical solution daily as Branch needed for Wheezing or Shortness of Breath. cyclobenzap 2020-09 Yes [id number] TAKE 1 [facility] rine 5 mg 1-09 TABLET BY ity o f tablet 00:00: MOUTH [place] 00 EVERY 8 Medical HOURS Branch NEEDED albuterol 2020-09 Yes [id number] 2{puff} Inhale 2 [facility] (PROAIR 1-09 Puffs ity of HFA) 90 00:00: every 6 [place] mcg/actuati 00 (six) Medical on inhaler hours as Branc h needed for Wheezing or Shortness of Breath. levalbutero 2020-09 Yes [id number] .63mg Inhale [facility] l 0.63 mg/3 1-09 0.63 mg 3 ity of mL 00:00: (three) [place] nebulizer 00 times Medical solution daily as Branch needed for Wheezing or Shortness of Breath. cyclobenzap 2020-09 Yes [id number] TAKE 1 [facility] rine 5 mg 1-09 TABLET BY ity o f tablet 00:00: MOUTH [place] 00 EVERY 8 Medical HOURS Branch NEEDED albuterol 2020-09 Yes [id number] 2{puff} Inhale 2 [facility] (PROAIR 1-09 Puffs ity of HFA) 90 00:00: every 6 [place] mcg/actuati 00 (six) Medical on inhaler hours as Branc h needed for Wheezing or Shortness of Breath. levalbutero 2020-09 Yes [id number] .63mg Inhale [facility] 0.63 mg/3 1-09 0.63 mg 3 ity of mL 00:00: (three) [place] nebulizer 00 times Medical solution daily as Branch needed for Wheezing or Shortness of Breath. cyclobenzap 2020-09 Yes [id number] TAKE 1 [facility] rine 5 mg 1-09 TABLET BY ity o f tablet 00:00: MOUTH [place] 00 EVERY 8 Medical HOURS Branch NEEDED albuterol 2020-09 Yes [id number] 2{puff} Inhale 2 [facility] (PROAIR 1-09 Puffs ity of HFA) 90 00:00: every 6 [place] mcg/actuati 00 (six) Medical on inhaler hours as Branc h needed for Wheezing or Shortness of Breath. levalbutero 2020-09 Yes [id number] .63mg Inhale [facility] l 0.63 mg/3 1-09 0.63 mg 3 ity of mL 00:00: (three) [place] nebulizer 00 times Medical solution daily as Branch needed for Wheezing or Shortness of Breath. cyclobenzap 2020-09 Yes [id number] TAKE 1 [facility] rine 5 mg 1-09 TABLET BY ity o f tablet 00:00: MOUTH [place] 00 EVERY 8 Medical HOURS Branch NEEDED albuterol 2020-09 Yes [id number] 2{puff} Inhale 2 [facility] (PROAIR 1-09 Puffs ity of HFA) 90 00:00: every 6 [place] mcg/actuati 00 (six) Medical on inhaler hours as Branc h needed for Wheezing or Shortness of Breath. levalbutero 2020-09 Yes [id number] .63mg Inhale [facility] l 0.63 mg/3 1-09 0.63 mg 3 ity of mL 00:00: (three) [place] nebulizer 00 times Medical solution daily as Branch needed for Wheezing or Shortness of Breath. cyclobenzap 2020-09 Yes [id number] TAKE 1 [facility] rine 5 mg 1-09 TABLET BY ity o f tablet 00:00: MOUTH [place] 00 EVERY 8 Medical HOURS Branch NEEDED albuterol 2020-09 Yes [id number] 2{puff} Inhale 2 [facility] (PROAIR 1-09 Puffs ity of HFA) 90 00:00: every 6 [place] mcg/actuati 00 (six) Medical on inhaler hours as Branc h needed for Wheezing or Shortness of Breath. levalbutero 2020-09 Yes [id number] .63mg Inhale [facility] l 0.63 mg/3 1-09 0.63 mg 3 ity of mL 00:00: (three) [place] nebulizer 00 times Medical solution daily as Branch needed for Wheezing or Shortness of Breath. albuterol 2020-09 Yes [id number] 2{puff} Inhale 2 [facility] (PROAIR 1-09 Puffs ity of HFA) 90 00:00: every 6 [place] mcg/actuati 00 (six) Medical on inhaler hours as Branc h needed for Wheezing or Shortness of Breath. levalbutero 2020-09 Yes [id number] .63mg Inhale [facility] 0.63 mg/3 1-09 0.63 mg 3 ity of mL 00:00: (three) [place] nebulizer 00 times Medical solution daily as Branch needed for Wheezing or Shortness of Breath. albuterol 2020-09 Yes [id number] 2{puff} Inhale 2 [facility] (PROAIR 1-09 Puffs ity of HFA) 90 00:00: every 6 [place] mcg/actuati 00 (six) Medical on inhaler hours as Branc h needed for Wheezing or Shortness of Breath. levalbutero 2020-09 Yes [id number] .63mg Inhale [facility] 0.63 mg/3 1-09 0.63 mg 3 ity of mL 00:00: (three) [place] nebulizer 00 times Medical solution daily as Branch needed for Wheezing or Shortness of Breath. albuterol 2020-09 Yes [id number] 2{puff} Inhale 2 [facility] (PROAIR 1-09 Puffs ity of HFA) 90 00:00: every 6 [place] mcg/actuati 00 (six) Medical on inhaler hours as Branc h needed for Wheezing or Shortness of Breath. levalbutero 2020-09 Yes [id number] .63mg Inhale [facility] 0.63 mg/3 1-09 0.63 mg 3 ity of mL 00:00: (three) [place] nebulizer 00 times Medical solution daily as Branch needed for Wheezing or Shortness of Breath. albuterol 2020-09 Yes [id number] 2{puff} Inhale 2 [facility] (PROAIR 1-09 Puffs ity of HFA) 90 00:00: every 6 [place] mcg/actuati 00 (six) Medical on inhaler hours as Branc h needed for Wheezing or Shortness of Breath. levalbutero 2020-09 Yes [id number] .63mg Inhale [facility] l 0.63 mg/3 1-09 0.63 mg 3 ity of mL 00:00: (three) [place] nebulizer 00 times Medical solution daily as Branch needed for Wheezing or Shortness of Breath. albuterol 2020-09 Yes [id number] 2{puff} Inhale 2 [facility] (PROAIR 1-09 Puffs ity of HFA) 90 00:00: every 6 [place] mcg/actuati 00 (six) Medical on inhaler hours as Branc h needed for Wheezing or Shortness of Breath. levalbutero 2020-09 Yes [id number] .63mg Inhale [facility] 0.63 mg/3 1-09 0.63 mg 3 ity of mL 00:00: (three) [place] nebulizer 00 times Medical solution daily as Branch needed for Wheezing or Shortness of Breath. albuterol 2020-09 Yes [id number] 2{puff} Inhale 2 [facility] (PROAIR 1-09 Puffs ity of HFA) 90 00:00: every 6 [place] mcg/actuati 00 (six) Medical on inhaler hours as Branc h needed for Wheezing or Shortness of Breath. levalbutero 2020-09 Yes [id number] .63mg Inhale [facility] 0.63 mg/3 1-09 0.63 mg 3 ity of mL 00:00: (three) [place] nebulizer 00 times Medical solution daily as Branch needed for Wheezing or Shortness of Breath. albuterol 2020-09 Yes [id number] 2{puff} Inhale 2 [facility] (PROAIR 1-09 Puffs ity of HFA) 90 00:00: every 6 [place] mcg/actuati 00 (six) Medical on inhaler hours as Branc h needed for Wheezing or Shortness of Breath. levalbutero 2020-09 Yes [id number] .63mg Inhale [facility] l 0.63 mg/3 1-09 0.63 mg 3 ity of mL 00:00: (three) [place] nebulizer 00 times Medical solution daily as Branch needed for Wheezing or Shortness of Breath. albuterol 2020-09 Yes [id number] 2{puff} Inhale 2 [facility] (PROAIR 1-09 Puffs ity of HFA) 90 00:00: every 6 [place] mcg/actuati 00 (six) Medical on inhaler hours as Branc h needed for Wheezing or Shortness of Breath. levalbutero 2020-09 Yes [id number] .63mg Inhale [facility] 0.63 mg/3 1-09 0.63 mg 3 ity of mL 00:00: (three) [place] nebulizer 00 times Medical solution daily as Branch needed for Wheezing or Shortness of Breath. albuterol 2020-09 Yes [id number] 2{puff} Inhale 2 [facility] (PROAIR 1-09 Puffs ity of HFA) 90 00:00: every 6 [place] mcg/actuati 00 (six) Medical on inhaler hours as Branc h needed for Wheezing or Shortness of Breath. levalbutero 2020-09 Yes [id number] .63mg Inhale [facility] 0.63 mg/3 1-09 0.63 mg 3 ity of mL 00:00: (three) [place] nebulizer 00 times Medical solution daily as Branch needed for Wheezing or Shortness of Breath. albuterol 2020-09 Yes [id number] 2{puff} Inhale 2 [facility] (PROAIR 1-09 Puffs ity of HFA) 90 00:00: every 6 [place] mcg/actuati 00 (six) Medical on inhaler hours as Branc h needed for Wheezing or Shortness of Breath. levalbutero 2020-09 Yes [id number] .63mg Inhale [facility] l 0.63 mg/3 1-09 0.63 mg 3 ity of mL 00:00: (three) [place] nebulizer 00 times Medical solution daily as Branch needed for Wheezing or Shortness of Breath. albuterol 2020-09 Yes [id number] 2{puff} Inhale 2 [facility] (PROAIR 1-09 Puffs ity of HFA) 90 00:00: every 6 [place] mcg/actuati 00 (six) Medical on inhaler hours as Branc h needed for Wheezing or Shortness of Breath. levalbutero 2020-09 Yes [id number] .63mg Inhale [facility] l 0.63 mg/3 1-09 0.63 mg 3 ity of mL 00:00: (three) [place] nebulizer 00 times Medical solution daily as Branch needed for Wheezing or Shortness of Breath. albuterol 2020-09 Yes [id number] 2{puff} Inhale 2 [facility] (PROAIR 1-09 Puffs ity of HFA) 90 00:00: every 6 [place] mcg/actuati 00 (six) Medical on inhaler hours as Branc h needed for Wheezing or Shortness of Breath. levalbutero 2020-09 Yes [id number] .63mg Inhale [facility] 0.63 mg/3 1-09 0.63 mg 3 ity of mL 00:00: (three) [place] nebulizer 00 times Medical solution daily as Branch needed for Wheezing or Shortness of Breath. albuterol 2020-09 Yes [id number] 2{puff} Inhale 2 [facility] (PROAIR 1-09 Puffs ity of HFA) 90 00:00: every 6 [place] mcg/actuati 00 (six) Medical on inhaler hours as Branc h needed for Wheezing or Shortness of Breath. levalbutero 2020-09 Yes [id number] .63mg Inhale [facility] l 0.63 mg/3 1-09 0.63 mg 3 ity of mL 00:00: (three) [place] nebulizer 00 times Medical solution daily as Branch needed for Wheezing or Shortness of Breath. albuterol 2020-09 Yes [id number] 2{puff} Inhale 2 [facility] (PROAIR 1-09 Puffs ity of HFA) 90 00:00: every 6 [place] mcg/actuati 00 (six) Medical on inhaler hours as Branc h needed for Wheezing or Shortness of Breath. levalbutero 2020-09 Yes [id number] .63mg Inhale [facility] 0.63 mg/3 1-09 0.63 mg 3 ity of mL 00:00: (three) [place] nebulizer 00 times Medical solution daily as Branch needed for Wheezing or Shortness of Breath. albuterol 2020-09 Yes [id number] 2{puff} Inhale 2 [facility] (PROAIR 1-09 Puffs ity of HFA) 90 00:00: every 6 [place] mcg/actuati 00 (six) Medical on inhaler hours as Branc h needed for Wheezing or Shortness of Breath. levalbutero 2020-09 Yes [id number] .63mg Inhale [facility] 0.63 mg/3 1-09 0.63 mg 3 ity of mL 00:00: (three) [place] nebulizer 00 times Medical solution daily as Branch needed for Wheezing or Shortness of Breath. albuterol 2020-09 Yes [id number] 2{puff} Inhale 2 [facility] (PROAIR 1-09 Puffs ity of HFA) 90 00:00: every 6 [place] mcg/actuati 00 (six) Medical on inhaler hours as Branc h needed for Wheezing or Shortness of Breath. levalbutero 2020-09 Yes [id number] .63mg Inhale [facility] l 0.63 mg/3 1-09 0.63 mg 3 ity of mL 00:00: (three) [place] nebulizer 00 times Medical solution daily as Branch needed for Wheezing or Shortness of Breath. albuterol 2020-09 Yes [id number] 2{puff} Inhale 2 [facility] (PROAIR 1-09 Puffs ity of HFA) 90 00:00: every 6 [place] mcg/actuati 00 (six) Medical on inhaler hours as Branc h needed for Wheezing or Shortness of Breath. levalbutero 2020-09 Yes [id number] .63mg Inhale [facility] 0.63 mg/3 1-09 0.63 mg 3 ity of mL 00:00: (three) [place] nebulizer 00 times Medical solution daily as Branch needed for Wheezing or Shortness of Breath. albuterol 2020-09 Yes [id number] 2{puff} Inhale 2 [facility] (PROAIR 1-09 Puffs ity of HFA) 90 00:00: every 6 [place] mcg/actuati 00 (six) Medical on inhaler hours as Branc h needed for Wheezing or Shortness of Breath. levalbutero 2020-09 Yes [id number] .63mg Inhale [facility] l 0.63 mg/3 1-09 0.63 mg 3 ity of mL 00:00: (three) [place] nebulizer 00 times Medical solution daily as Branch needed for Wheezing or Shortness of Breath. albuterol 2020-09 Yes [id number] 2{puff} Inhale 2 [facility] (PROAIR 1-09 Puffs ity of HFA) 90 00:00: every 6 [place] mcg/actuati 00 (six) Medical on inhaler hours as Branc h needed for Wheezing or Shortness of Breath. levalbutero 2020-09 Yes [id number] .63mg Inhale [facility] 0.63 mg/3 1-09 0.63 mg 3 ity of mL 00:00: (three) [place] nebulizer 00 times Medical solution daily as Branch needed for Wheezing or Shortness of Breath. albuterol 2020-09 Yes [id number] 2{puff} Inhale 2 [facility] (PROAIR 1-09 Puffs ity of HFA) 90 00:00: every 6 [place] mcg/actuati 00 (six) Medical on inhaler hours as Branc h needed for Wheezing or Shortness of Breath. levalbutero 2020-09 Yes [id number] .63mg Inhale [facility] 0.63 mg/3 1-09 0.63 mg 3 ity of mL 00:00: (three) [place] nebulizer 00 times Medical solution daily as Branch needed for Wheezing or Shortness of Breath. albuterol 2020-09 Yes [id number] 2{puff} Inhale 2 [facility] (PROAIR 1-09 Puffs ity of HFA) 90 00:00: every 6 [place] mcg/actuati 00 (six) Medical on inhaler hours as Branc h needed for Wheezing or Shortness of Breath. levalbutero 2020-09 Yes [id number] .63mg Inhale [facility] 0.63 mg/3 1-09 0.63 mg 3 ity of mL 00:00: (three) [place] nebulizer 00 times Medical solution daily as Branch needed for Wheezing or Shortness of Breath. albuterol 2020-09 Yes [id number] 2{puff} Inhale 2 [facility] (PROAIR 1-09 Puffs ity of HFA) 90 00:00: every 6 [place] mcg/actuati 00 (six) Medical on inhaler hours as Branc h needed for Wheezing or Shortness of Breath. levalbutero 2020-09 Yes [id number] .63mg Inhale [facility] 0.63 mg/3 1-09 0.63 mg 3 ity of mL 00:00: (three) [place] nebulizer 00 times Medical solution daily as Branch needed for Wheezing or Shortness of Breath. albuterol 2020-09 Yes [id number] 2{puff} Inhale 2 [facility] (PROAIR 1-09 Puffs ity of HFA) 90 00:00: every 6 [place] mcg/actuati 00 (six) Medical on inhaler hours as Branc h needed for Wheezing or Shortness of Breath. levalbutero 2020-09 Yes [id number] .63mg Inhale [facility] 0.63 mg/3 1-09 0.63 mg 3 ity of mL 00:00: (three) [place] nebulizer 00 times Medical solution daily as Branch needed for Wheezing or Shortness of Breath. albuterol 2020-09 Yes [id number] 2{puff} Inhale 2 [facility] (PROAIR 1-09 Puffs ity of HFA) 90 00:00: every 6 [place] mcg/actuati 00 (six) Medical on inhaler hours as Branc h needed for Wheezing or Shortness of Breath. levalbutero 2020-09 Yes [id number] .63mg Inhale [facility] 0.63 mg/3 1-09 0.63 mg 3 ity of mL 00:00: (three) [place] nebulizer 00 times Medical solution daily as Branch needed for Wheezing or Shortness of Breath. albuterol 2020-09 Yes [id number] 2{puff} Inhale 2 [facility] (PROAIR 1-09 Puffs ity of HFA) 90 00:00: every 6 [place] mcg/actuati 00 (six) Medical on inhaler hours as Branc h needed for Wheezing or Shortness of Breath. levalbutero 2020-09 Yes [id number] .63mg Inhale [facility] 0.63 mg/3 1-09 0.63 mg 3 ity of mL 00:00: (three) [place] nebulizer 00 times Medical solution daily as Branch needed for Wheezing or Shortness of Breath. albuterol 2020-09 Yes [id number] 2{puff} Inhale 2 [facility] (PROAIR 1-09 Puffs ity of HFA) 90 00:00: every 6 [place] mcg/actuati 00 (six) Medical on inhaler hours as Branc h needed for Wheezing or Shortness of Breath. levalbutero 2020-09 Yes [id number] .63mg Inhale [facility] 0.63 mg/3 1-09 0.63 mg 3 ity of mL 00:00: (three) [place] nebulizer 00 times Medical solution daily as Branch needed for Wheezing or Shortness of Breath. albuterol 2020-09 Yes [id number] 2{puff} Inhale 2 [facility] (PROAIR 1-09 Puffs ity of HFA) 90 00:00: every 6 [place] mcg/actuati 00 (six) Medical on inhaler hours as Branc h needed for Wheezing or Shortness of Breath. levalbutero 2020-09 Yes [id number] .63mg Inhale [facility] 0.63 mg/3 1-09 0.63 mg 3 ity of mL 00:00: (three) [place] nebulizer 00 times Medical solution daily as Branch needed for Wheezing or Shortness of Breath. albuterol 2020-09 Yes [id number] 2{puff} Inhale 2 [facility] (PROAIR 1-09 Puffs ity of HFA) 90 00:00: every 6 [place] mcg/actuati 00 (six) Medical on inhaler hours as Branc h needed for Wheezing or Shortness of Breath. levalbutero 2020-09 Yes [id number] .63mg Inhale [facility] 0.63 mg/3 1-09 0.63 mg 3 ity of mL 00:00: (three) [place] nebulizer 00 times Medical solution daily as Branch needed for Wheezing or Shortness of Breath. albuterol 2020-09 Yes [id number] 2{puff} Inhale 2 [facility] (PROAIR 1-09 Puffs ity of HFA) 90 00:00: every 6 [place] mcg/actuati 00 (six) Medical on inhaler hours as Branc h needed for Wheezing or Shortness of Breath. levalbutero 2020-09 Yes [id number] .63mg Inhale [facility] 0.63 mg/3 1-09 0.63 mg 3 ity of mL 00:00: (three) [place] nebulizer 00 times Medical solution daily as Branch needed for Wheezing or Shortness of Breath. albuterol 2020-09 Yes [id number] 2{puff} Inhale 2 [facility] (PROAIR 1-09 Puffs ity of HFA) 90 00:00: every 6 [place] mcg/actuati 00 (six) Medical on inhaler hours as Branc h needed for Wheezing or Shortness of Breath. levalbutero 2020-09 Yes [id number] .63mg Inhale [facility] 0.63 mg/3 1-09 0.63 mg 3 ity of mL 00:00: (three) [place] nebulizer 00 times Medical solution daily as Branch needed for Wheezing or Shortness of Breath. albuterol 2020-09 Yes [id number] 2{puff} Inhale 2 [facility] (PROAIR 1-09 Puffs ity of HFA) 90 00:00: every 6 [place] mcg/actuati 00 (six) Medical on inhaler hours as Branc h needed for Wheezing or Shortness of Breath. levalbutero 2020-09 Yes [id number] .63mg Inhale [facility] 0.63 mg/3 1-09 0.63 mg 3 ity of mL 00:00: (three) [place] nebulizer 00 times Medical solution daily as Branch needed for Wheezing or Shortness of Breath. albuterol 2020-09 Yes [id number] 2{puff} Inhale 2 [facility] (PROAIR 1-09 Puffs ity of HFA) 90 00:00: every 6 [place] mcg/actuati 00 (six) Medical on inhaler hours as Branc h needed for Wheezing or Shortness of Breath. levalbutero 2020-09 Yes [id number] .63mg Inhale [facility] 0.63 mg/3 1-09 0.63 mg 3 ity of mL 00:00: (three) [place] nebulizer 00 times Medical solution daily as Branch needed for Wheezing or Shortness of Breath. albuterol 2020-09 Yes [id number] 2{puff} Inhale 2 [facility] (PROAIR 1-09 Puffs ity of HFA) 90 00:00: every 6 [place] mcg/actuati 00 (six) Medical on inhaler hours as Branc h needed for Wheezing or Shortness of Breath. levalbutero 2020-09 Yes [id number] .63mg Inhale [facility] 0.63 mg/3 1-09 0.63 mg 3 ity of mL 00:00: (three) [place] nebulizer 00 times Medical solution daily as Branch needed for Wheezing or Shortness of Breath. albuterol 2020-09 Yes [id number] 2{puff} Inhale 2 [facility] (PROAIR 1-09 Puffs ity of HFA) 90 00:00: every 6 [place] mcg/actuati 00 (six) Medical on inhaler hours as Branc h needed for Wheezing or Shortness of Breath. levalbutero 2020-09 Yes [id number] .63mg Inhale [facility] 0.63 mg/3 1-09 0.63 mg 3 ity of mL 00:00: (three) [place] nebulizer 00 times Medical solution daily as Branch needed for Wheezing or Shortness of Breath. albuterol 2020-09 Yes [id number] 2{puff} Inhale 2 [facility] (PROAIR 1-09 Puffs ity of HFA) 90 00:00: every 6 [place] mcg/actuati 00 (six) Medical on inhaler hours as Branc h needed for Wheezing or Shortness of Breath. levalbutero 2020-09 Yes [id number] .63mg Inhale [facility] 0.63 mg/3 1-09 0.63 mg 3 ity of mL 00:00: (three) [place] nebulizer 00 times Medical solution daily as Branch needed for Wheezing or Shortness of Breath. albuterol 2020-09 Yes [id number] 2{puff} Inhale 2 [facility] (PROAIR 1-09 Puffs ity of HFA) 90 00:00: every 6 [place] mcg/actuati 00 (six) Medical on inhaler hours as Branc h needed for Wheezing or Shortness of Breath. levalbutero 2020-09 Yes [id number] .63mg Inhale [facility] 0.63 mg/3 1-09 0.63 mg 3 ity of mL 00:00: (three) [place] nebulizer 00 times Medical solution daily as Branch needed for Wheezing or Shortness of Breath. albuterol 2020-09 Yes [id number] 2{puff} Inhale 2 [facility] (PROAIR 1-09 Puffs ity of HFA) 90 00:00: every 6 [place] mcg/actuati 00 (six) Medical on inhaler hours as Branc h needed for Wheezing or Shortness of Breath. levalbutero 2020-09 Yes [id number] .63mg Inhale [facility] 0.63 mg/3 1-09 0.63 mg 3 ity of mL 00:00: (three) [place] nebulizer 00 times Medical solution daily as Branch needed for Wheezing or Shortness of Breath. albuterol 2020-09 Yes [id number] 2{puff} Inhale 2 [facility] (PROAIR 1-09 Puffs ity of HFA) 90 00:00: every 6 [place] mcg/actuati 00 (six) Medical on inhaler hours as Branc h needed for Wheezing or Shortness of Breath. levalbutero 2020-09 Yes [id number] .63mg Inhale [facility] 0.63 mg/3 1-09 0.63 mg 3 ity of mL 00:00: (three) [place] nebulizer 00 times Medical solution daily as Branch needed for Wheezing or Shortness of Breath. albuterol 2020-09 Yes [id number] 2{puff} Inhale 2 [facility] (PROAIR 1-09 Puffs ity of HFA) 90 00:00: every 6 [place] mcg/actuati 00 (six) Medical on inhaler hours as Branc h needed for Wheezing or Shortness of Breath. levalbutero 2020-09 Yes [id number] .63mg Inhale [facility] 0.63 mg/3 1-09 0.63 mg 3 ity of mL 00:00: (three) [place] nebulizer 00 times Medical solution daily as Branch needed for Wheezing or Shortness of Breath. albuterol 2020-09 Yes [id number] 2{puff} Inhale 2 [facility] (PROAIR 1-09 Puffs ity of HFA) 90 00:00: every 6 [place] mcg/actuati 00 (six) Medical on inhaler hours as Branc h needed for Wheezing or Shortness of Breath. levalbutero 2020-09 Yes [id number] .63mg Inhale [facility] 0.63 mg/3 1-09 0.63 mg 3 ity of mL 00:00: (three) [place] nebulizer 00 times Medical solution daily as Branch needed for Wheezing or Shortness of Breath. albuterol 2020-09 Yes [id number] 2{puff} Inhale 2 [facility] (PROAIR 1-09 Puffs ity of HFA) 90 00:00: every 6 [place] mcg/actuati 00 (six) Medical on inhaler hours as Branc h needed for Wheezing or Shortness of Breath. levalbutero 2020-09 Yes [id number] .63mg Inhale [facility] 0.63 mg/3 1-09 0.63 mg 3 ity of mL 00:00: (three) [place] nebulizer 00 times Medical solution daily as Branch needed for Wheezing or Shortness of Breath. albuterol 2020-09 Yes [id number] 2{puff} Inhale 2 [facility] (PROAIR 1-09 Puffs ity of HFA) 90 00:00: every 6 [place] mcg/actuati 00 (six) Medical on inhaler hours as Branc h needed for Wheezing or Shortness of Breath. levalbutero 2020-09 Yes [id number] .63mg Inhale [facility] 0.63 mg/3 1-09 0.63 mg 3 ity of mL 00:00: (three) [place] nebulizer 00 times Medical solution daily as Branch needed for Wheezing or Shortness of Breath. albuterol 2020-09 Yes [id number] 2{puff} Inhale 2 [facility] (PROAIR 1-09 Puffs ity of HFA) 90 00:00: every 6 [place] mcg/actuati 00 (six) Medical on inhaler hours as Branc h needed for Wheezing or Shortness of Breath. levalbutero 2020-09 Yes [id number] .63mg Inhale [facility] l 0.63 mg/3 1-09 0.63 mg 3 ity of mL 00:00: (three) [place] nebulizer 00 times Medical solution daily as Branch needed for Wheezing or Shortness of Breath. albuterol 2020-09 Yes [id number] 2{puff} Inhale 2 [facility] (PROAIR 1-09 Puffs ity of HFA) 90 00:00: every 6 [place] mcg/actuati 00 (six) Medical on inhaler hours as Branc h needed for Wheezing or Shortness of Breath. levalbutero 2020-09 Yes [id number] .63mg Inhale [facility] l 0.63 mg/3 1-09 0.63 mg 3 ity of mL 00:00: (three) [place] nebulizer 00 times Medical solution daily as Branch needed for Wheezing or Shortness of Breath. albuterol 2020-09 Yes [id number] 2{puff} Inhale 2 [facility] (PROAIR 1-09 Puffs ity of HFA) 90 00:00: every 6 [place] mcg/actuati 00 (six) Medical on inhaler hours as Branc h needed for Wheezing or Shortness of Breath. levalbutero 2020-09 Yes [id number] .63mg Inhale [facility] l 0.63 mg/3 1-09 0.63 mg 3 ity of mL 00:00: (three) [place] nebulizer 00 times Medical solution daily as Branch needed for Wheezing or Shortness of Breath. albuterol 2020-09 Yes [id number] 2{puff} Inhale 2 [facility] (PROAIR 1-09 Puffs ity of HFA) 90 00:00: every 6 [place] mcg/actuati 00 (six) Medical on inhaler hours as Branc h needed for Wheezing or Shortness of Breath. levalbutero 2020-09 Yes [id number] .63mg Inhale [facility] l 0.63 mg/3 1-09 0.63 mg 3 ity of mL 00:00: (three) [place] nebulizer 00 times Medical solution daily as Branch needed for Wheezing or Shortness of Breath. albuterol 2020-09 Yes [id number] 2{puff} Inhale 2 [facility] (PROAIR 1-09 Puffs ity of HFA) 90 00:00: every 6 [place] mcg/actuati 00 (six) Medical on inhaler hours as Branc h needed for Wheezing or Shortness of Breath. levalbutero 2020-09 Yes [id number] .63mg Inhale [facility] l 0.63 mg/3 1-09 0.63 mg 3 ity of mL 00:00: (three) [place] nebulizer 00 times Medical solution daily as Branch needed for Wheezing or Shortness of Breath. albuterol 2020-09 Yes [id number] 2{puff} Inhale 2 [facility] (PROAIR 1-09 Puffs ity of HFA) 90 00:00: every 6 [place] mcg/actuati 00 (six) Medical on inhaler hours as Branc h needed for Wheezing or Shortness of Breath. levalbutero 2020-09 Yes [id number] .63mg Inhale [facility] l 0.63 mg/3 1-09 0.63 mg 3 ity of mL 00:00: (three) [place] nebulizer 00 times Medical solution daily as Branch needed for Wheezing or Shortness of Breath. albuterol 2020-09 Yes [id number] 2{puff} Inhale 2 [facility] (PROAIR 1-09 Puffs ity of HFA) 90 00:00: every 6 [place] mcg/actuati 00 (six) Medical on inhaler hours as Branc h needed for Wheezing or Shortness of Breath. levalbutero 2020-09 Yes [id number] .63mg Inhale [facility] l 0.63 mg/3 1-09 0.63 mg 3 ity of mL 00:00: (three) [place] nebulizer 00 times Medical solution daily as Branch needed for Wheezing or Shortness of Breath. albuterol 2020-09 Yes [id number] 2{puff} Inhale 2 [facility] (PROAIR 1-09 Puffs ity of HFA) 90 00:00: every 6 [place] mcg/actuati 00 (six) Medical on inhaler hours as Branc h needed for Wheezing or Shortness of Breath. levalbutero 2020-09 Yes [id number] .63mg Inhale [facility] l 0.63 mg/3 1-09 0.63 mg 3 ity of mL 00:00: (three) [place] nebulizer 00 times Medical solution daily as Branch needed for Wheezing or Shortness of Breath. albuterol 2020-09 Yes [id number] 2{puff} Inhale 2 [facility] (PROAIR 1-09 Puffs ity of HFA) 90 00:00: every 6 [place] mcg/actuati 00 (six) Medical on inhaler hours as Branc h needed for Wheezing or Shortness of Breath. levalbutero 2020-09 Yes [id number] .63mg Inhale [facility] l 0.63 mg/3 1-09 0.63 mg 3 ity of mL 00:00: (three) [place] nebulizer 00 times Medical solution daily as Branch needed for Wheezing or Shortness of Breath. albuterol 2020-09 Yes [id number] 2{puff} Inhale 2 [facility] (PROAIR 1-09 Puffs ity of HFA) 90 00:00: every 6 [place] mcg/actuati 00 (six) Medical on inhaler hours as Branc h needed for Wheezing or Shortness of Breath. levalbutero 2020-09 Yes [id number] .63mg Inhale [facility] l 0.63 mg/3 1-09 0.63 mg 3 ity of mL 00:00: (three) [place] nebulizer 00 times Medical solution daily as Branch needed for Wheezing or Shortness of Breath. albuterol 2020-09 Yes [id number] 2{puff} Inhale 2 [facility] (PROAIR 1-09 Puffs ity of HFA) 90 00:00: every 6 [place] mcg/actuati 00 (six) Medical on inhaler hours as Branc h needed for Wheezing or Shortness of Breath. levalbutero 2020-09 Yes [id number] .63mg Inhale [facility] l 0.63 mg/3 1-09 0.63 mg 3 ity of mL 00:00: (three) [place] nebulizer 00 times Medical solution daily as Branch needed for Wheezing or Shortness of Breath. albuterol 2020-09 Yes [id number] 2{puff} Inhale 2 [facility] (PROAIR 1-09 Puffs ity of HFA) 90 00:00: every 6 [place] mcg/actuati 00 (six) Medical on inhaler hours as Branc h needed for Wheezing or Shortness of Breath. levalbutero 2020-09 Yes [id number] .63mg Inhale [facility] l 0.63 mg/3 1-09 0.63 mg 3 ity of mL 00:00: (three) [place] nebulizer 00 times Medical solution daily as Branch needed for Wheezing or Shortness of Breath. albuterol 2020-09 Yes [id number] 2{puff} Inhale 2 [facility] (PROAIR 1-09 Puffs ity of HFA) 90 00:00: every 6 [place] mcg/actuati 00 (six) Medical on inhaler hours as Branc h needed for Wheezing or Shortness of Breath. levalbutero 2020-09 Yes [id number] .63mg Inhale [facility] l 0.63 mg/3 1-09 0.63 mg 3 ity of mL 00:00: (three) [place] nebulizer 00 times Medical solution daily as Branch needed for Wheezing or Shortness of Breath. albuterol 2020-09 Yes [id number] 2{puff} Inhale 2 [facility] (PROAIR 1-09 Puffs ity of HFA) 90 00:00: every 6 [place] mcg/actuati 00 (six) Medical on inhaler hours as Branc h needed for Wheezing or Shortness of Breath. levalbutero 2020-09 Yes [id number] .63mg Inhale [facility] l 0.63 mg/3 1-09 0.63 mg 3 ity of mL 00:00: (three) [place] nebulizer 00 times Medical solution daily as Branch needed for Wheezing or Shortness of Breath. albuterol 2020-09 Yes [id number] 2{puff} Inhale 2 [facility] (PROAIR 1-09 Puffs ity of HFA) 90 00:00: every 6 [place] mcg/actuati 00 (six) Medical on inhaler hours as Branc h needed for Wheezing or Shortness of Breath. levalbutero 2020-09 Yes [id number] .63mg Inhale [facility] l 0.63 mg/3 1-09 0.63 mg 3 ity of mL 00:00: (three) [place] nebulizer 00 times Medical solution daily as Branch needed for Wheezing or Shortness of Breath. albuterol 2020-09 Yes [id number] 2{puff} Inhale 2 [facility] (PROAIR 1-09 Puffs ity of HFA) 90 00:00: every 6 [place] mcg/actuati 00 (six) Medical on inhaler hours as Branc h needed for Wheezing or Shortness of Breath. levalbutero 2020-09 Yes [id number] .63mg Inhale [facility] l 0.63 mg/3 1-09 0.63 mg 3 ity of mL 00:00: (three) [place] nebulizer 00 times Medical solution daily as Branch needed for Wheezing or Shortness of Breath. albuterol 2020-09 Yes [id number] 2{puff} Inhale 2 [facility] (PROAIR 1-09 Puffs ity of HFA) 90 00:00: every 6 [place] mcg/actuati 00 (six) Medical on inhaler hours as Branc h needed for Wheezing or Shortness of Breath. levalbutero 2020-09 Yes [id number] .63mg Inhale [facility] l 0.63 mg/3 1-09 0.63 mg 3 ity of mL 00:00: (three) [place] nebulizer 00 times Medical solution daily as Branch needed for Wheezing or Shortness of Breath. albuterol 2020-09 Yes [id number] 2{puff} Inhale 2 [facility] (PROAIR 1-09 Puffs ity of HFA) 90 00:00: every 6 [place] mcg/actuati 00 (six) Medical on inhaler hours as Branc h needed for Wheezing or Shortness of Breath. levalbutero 2020-09 Yes [id number] .63mg Inhale [facility] l 0.63 mg/3 1-09 0.63 mg 3 ity of mL 00:00: (three) [place] nebulizer 00 times Medical solution daily as Branch needed for Wheezing or Shortness of Breath. albuterol 2020-09 Yes [id number] 2{puff} Inhale 2 [facility] (PROAIR 1-09 Puffs ity of HFA) 90 00:00: every 6 [place] mcg/actuati 00 (six) Medical on inhaler hours as Branc h needed for Wheezing or Shortness of Breath. levalbutero 2020-09 Yes [id number] .63mg Inhale [facility] 0.63 mg/3 1-09 0.63 mg 3 ity of mL 00:00: (three) [place] nebulizer 00 times Medical solution daily as Branch needed for Wheezing or Shortness of Breath. albuterol 2020-09 Yes [id number] 2{puff} Inhale 2 [facility] (PROAIR 1-09 Puffs ity of HFA) 90 00:00: every 6 [place] mcg/actuati 00 (six) Medical on inhaler hours as Branc h needed for Wheezing or Shortness of Breath. levalbutero 2020-09 Yes [id number] .63mg Inhale [facility] l 0.63 mg/3 1-09 0.63 mg 3 ity of mL 00:00: (three) [place] nebulizer 00 times Medical solution daily as Branch needed for Wheezing or Shortness of Breath. albuterol 2020-09 Yes [id number] 2{puff} Inhale 2 [facility] (PROAIR 1-09 Puffs ity of HFA) 90 00:00: every 6 [place] mcg/actuati 00 (six) Medical on inhaler hours as Branc h needed for Wheezing or Shortness of Breath. levalbutero 2020-09 Yes [id number] .63mg Inhale [facility] l 0.63 mg/3 1-09 0.63 mg 3 ity of mL 00:00: (three) [place] nebulizer 00 times Medical solution daily as Branch needed for Wheezing or Shortness of Breath. albuterol 2020-09 Yes [id number] 2{puff} Inhale 2 [facility] (PROAIR 1-09 Puffs ity of HFA) 90 00:00: every 6 [place] mcg/actuati 00 (six) Medical on inhaler hours as Branc h needed for Wheezing or Shortness of Breath. levalbutero 2020-09 Yes [id number] .63mg Inhale [facility] 0.63 mg/3 1-09 0.63 mg 3 ity of mL 00:00: (three) [place] nebulizer 00 times Medical solution daily as Branch needed for Wheezing or Shortness of Breath. albuterol 2020-09 Yes [id number] 2{puff} Inhale 2 [facility] (PROAIR 1-09 Puffs ity of HFA) 90 00:00: every 6 [place] mcg/actuati 00 (six) Medical on inhaler hours as Branc h needed for Wheezing or Shortness of Breath. levalbutero 2020-09 Yes [id number] .63mg Inhale [facility] 0.63 mg/3 1-09 0.63 mg 3 ity of mL 00:00: (three) [place] nebulizer 00 times Medical solution daily as Branch needed for Wheezing or Shortness of Breath. albuterol 2020-09 Yes [id number] 2{puff} Inhale 2 [facility] (PROAIR 1-09 Puffs ity of HFA) 90 00:00: every 6 [place] mcg/actuati 00 (six) Medical on inhaler hours as Branc h needed for Wheezing or Shortness of Breath. levalbutero 2020-09 Yes [id number] .63mg Inhale [facility] 0.63 mg/3 1-09 0.63 mg 3 ity of mL 00:00: (three) [place] nebulizer 00 times Medical solution daily as Branch needed for Wheezing or Shortness of Breath. albuterol 2020-09 Yes [id number] 2{puff} Inhale 2 [facility] (PROAIR 1-09 Puffs ity of HFA) 90 00:00: every 6 [place] mcg/actuati 00 (six) Medical on inhaler hours as Branc h needed for Wheezing or Shortness of Breath. levalbutero 2020-09 Yes [id number] .63mg Inhale [facility] l 0.63 mg/3 1-09 0.63 mg 3 ity of mL 00:00: (three) [place] nebulizer 00 times Medical solution daily as Branch needed for Wheezing or Shortness of Breath. albuterol 2020-09 Yes [id number] 2{puff} Inhale 2 [facility] (PROAIR 1-09 Puffs ity of HFA) 90 00:00: every 6 [place] mcg/actuati 00 (six) Medical on inhaler hours as Branc h needed for Wheezing or Shortness of Breath. levalbutero 2020-09 Yes [id number] .63mg Inhale [facility] l 0.63 mg/3 1-09 0.63 mg 3 ity of mL 00:00: (three) [place] nebulizer 00 times Medical solution daily as Branch needed for Wheezing or Shortness of Breath. albuterol 2020-09 Yes [id number] 2{puff} Inhale 2 [facility] (PROAIR 1-09 Puffs ity of HFA) 90 00:00: every 6 [place] mcg/actuati 00 (six) Medical on inhaler hours as Branc h needed for Wheezing or Shortness of Breath. levalbutero 2020-09 Yes [id number] .63mg Inhale [facility] l 0.63 mg/3 1-09 0.63 mg 3 ity of mL 00:00: (three) [place] nebulizer 00 times Medical solution daily as Branch needed for Wheezing or Shortness of Breath. albuterol 2020-09 Yes [id number] 2{puff} Inhale 2 [facility] (PROAIR 1-09 Puffs ity of HFA) 90 00:00: every 6 [place] mcg/actuati 00 (six) Medical on inhaler hours as Branc h needed for Wheezing or Shortness of Breath. levalbutero 2020-09 Yes [id number] .63mg Inhale [facility] l 0.63 mg/3 1-09 0.63 mg 3 ity of mL 00:00: (three) [place] nebulizer 00 times Medical solution daily as Branch needed for Wheezing or Shortness of Breath. albuterol 2020-09 Yes [id number] 2{puff} Inhale 2 [facility] (PROAIR 1-09 Puffs ity of HFA) 90 00:00: every 6 [place] mcg/actuati 00 (six) Medical on inhaler hours as Branc h needed for Wheezing or Shortness of Breath. levalbutero 2020-09 Yes [id number] .63mg Inhale [facility] l 0.63 mg/3 1-09 0.63 mg 3 ity of mL 00:00: (three) [place] nebulizer 00 times Medical solution daily as Branch needed for Wheezing or Shortness of Breath. albuterol 2020-09 Yes [id number] 2{puff} Inhale 2 [facility] (PROAIR 1-09 Puffs ity of HFA) 90 00:00: every 6 [place] mcg/actuati 00 (six) Medical on inhaler hours as Branc h needed for Wheezing or Shortness of Breath. levalbutero 2020-09 Yes [id number] .63mg Inhale [facility] l 0.63 mg/3 1-09 0.63 mg 3 ity of mL 00:00: (three) [place] nebulizer 00 times Medical solution daily as Branch needed for Wheezing or Shortness of Breath. albuterol 2020-09 Yes [id number] 2{puff} Inhale 2 [facility] (PROAIR 1-09 Puffs ity of HFA) 90 00:00: every 6 [place] mcg/actuati 00 (six) Medical on inhaler hours as Branc h needed for Wheezing or Shortness of Breath. levalbutero 2020-09 Yes [id number] .63mg Inhale [facility] l 0.63 mg/3 1-09 0.63 mg 3 ity of mL 00:00: (three) [place] nebulizer 00 times Medical solution daily as Branch needed for Wheezing or Shortness of Breath. albuterol 2020-09 Yes [id number] 2{puff} Inhale 2 [facility] (PROAIR 1-09 Puffs ity of HFA) 90 00:00: every 6 [place] mcg/actuati 00 (six) Medical on inhaler hours as Branc h needed for Wheezing or Shortness of Breath. levalbutero 2020-09 Yes [id number] .63mg Inhale [facility] l 0.63 mg/3 1-09 0.63 mg 3 ity of mL 00:00: (three) [place] nebulizer 00 times Medical solution daily as Branch needed for Wheezing or Shortness of Breath. albuterol 2020-09 Yes [id number] 2{puff} Inhale 2 [facility] (PROAIR 1-09 Puffs ity of HFA) 90 00:00: every 6 [place] mcg/actuati 00 (six) Medical on inhaler hours as Branc h needed for Wheezing or Shortness of Breath. rosuvastati 2020-09 Yes [id number] 10mg Take 1 [facility] n 10 mg 1-09 tablet by ity of tablet 00:00: mouth at [place] 00 bedtime. [facility] cyanocobala 2020-09 Yes [id number] 1000ug 1 mL by [facility] min 1,000 1-09 Intramus[facility] it[facility] of mcg/mL 00:00: [facility] route [place] injection 00 every 2 Medical (two) Branch weeks. levothyroxi 2020-09 Yes [id number] 50ug Take 1 [facility] ne 50 mcg 1-09 tablet by ity o f tablet 00:00: mouth [place] 00 every Medical morning. Branch fluticasone 2020-09 Yes [id number] 2{puff} Inhale 2 [facility] propionate 1-09 Puffs ity of (FLOVENT 00:00: every 12 [place] HFA) 110 00 (twelve) Medical mcg/actuati hours. Branch on inhaler Rinse mouth after each use. levalbutero 2020-09 Yes [id number] .63mg Inhale [facility] l 0.63 mg/3 1-09 0.63 mg 3 ity of mL 00:00: (three) [place] nebulizer 00 times Medical solution daily as Branch needed for Wheezing or Shortness of Breath. losartan 50 2020-09 Yes [id number] 50mg Take 1 [facility] mg tablet 1-09 tablet by ity o f 00:00: mouth 2 [place] 00 (two) Medical times Branch daily. clotrimazol 2020-09 Yes [id number] Apply to [facility] e-betametha -09 area(s) 2 ity of sone cream 00:00: (two) [place] 00 times Medical daily. Branch cyclobenzap 2020-09 Yes [id number] TAKE 1 [facility] rine 5 mg 1-09 TABLET BY ity o f tablet 00:00: MOUTH [place] 00 EVERY 8 Medical HOURS Branch NEEDED econazole 2020-09 Yes [id number] Apply to [facility] nitrate 1 % 1-09 area(s) 2 ity of cream 00:00: (two) [place] 00 times Medical daily. Branch albuterol 2020-09 Yes [id number] 2{puff} Inhale 2 [facility] (PROAIR 1-09 Puffs ity of HFA) 90 00:00: every 6 [place] mcg/actuati 00 (six) Medical on inhaler hours as Branc h needed for Wheezing or Shortness of Breath. triamcinolo 2020-09 Yes [id number] Apply to [facility] ne 0.025 % 1-09 area(s) 3 ity of ointment 00:00: (three) [place] 00 times Medical daily. For Branch itching diltiazem 2020-09 Yes [id number] 120mg Take 1 [facility] (CARTIA XT) 1-09 capsule by it y of 120 mg 24 00:00: mouth 2 [place] hr capsule 00 (two) Medical times Branch daily. rosuvastati 2020-09 Yes [id number] 10mg Take 1 [facility] n 10 mg 1-09 tablet by ity of tablet 00:00: mouth at [place] 00 bedtime. Medical Branch cyanocobala 2020-09 Yes [id number] 1000ug 1 mL by [facility] min 1,000 1-09 Intramuscu ity of mcg/mL 00:00: lar route [place] injection 00 every 2 Medical (two) Branch weeks. levothyroxi 2020-09 Yes [id number] 50ug Take 1 [facility] ne 50 mcg 1-09 tablet by ity o f tablet 00:00: mouth [place] 00 every Medical morning. Branch fluticasone 2020-09 Yes [id number] 2{puff} Inhale 2 [facility] propionate 1-09 Puffs ity of (FLOVENT 00:00: every 12 [place] HFA) 110 00 (twelve) Medical mcg/actuati hours. Branch on inhaler Rinse mouth after each use. levalbutero 2020-09 Yes [id number] .63mg Inhale [facility] l 0.63 mg/3 1-09 0.63 mg 3 ity of mL 00:00: (three) [place] nebulizer 00 times Medical solution daily as Branch needed for Wheezing or Shortness of Breath. losartan 50 2020-09 Yes [id number] 50mg Take 1 [facility] mg tablet -09 tablet by ity o f 00:00: mouth 2 [place] 00 (two) Medical times Branch daily. clotrimazol 2020-09 Yes [id number] Apply to [facility] e-betametha 09 area(s) 2 ity of sone cream 00:00: (two) [place] 00 times Medical daily. Branch cyclobenzap 2020-09 Yes [id number] TAKE 1 [facility] rine 5 mg -09 TABLET BY ity o f tablet 00:00: MOUTH [place] 00 EVERY 8 Medical HOURS Branch NEEDED econazole 2020-09 Yes [id number] Apply to [facility] nitrate 1 % 10-04 area(s) 2 ity of cream 00:00: (two) [place] 00 times Medical daily. Branch albuterol 2020-09 Yes [id number] 2{puff} Inhale 2 [facility] (PROAIR -09 Puffs ity of HFA) 90 00:00: every 6 [place] mcg/actuati 00 (six) Medical on inhaler hours as Branc h needed for Wheezing or Shortness of Breath. triamcinolo 2020-09 Yes [id number] Apply to [facility] ne 0.025 % 10-04 area(s) 3 ity of ointment 00:00: (three) [place] 00 times Medical daily. For Branch itching diltiazem 2020-09 Yes [id number] 120mg Take 1 [facility] (CARTIA XT) 09 capsule by it y of 120 mg 24 00:00: mouth 2 [place] hr capsule 00 (two) Medical times Branch daily. cyanocobala 2020-09 Yes [id number] 1000ug 1 mL by [facility] min 1,000 -09 Intramuscu ity of mcg/mL 00:00: lar route [place] injection 00 every 2 Medical (two) Branch weeks. levothyroxi 2020-09 Yes [id number] 50ug Take 1 [facility] ne 50 mcg -09 tablet by ity o f tablet 00:00: mouth [place] 00 every Medical morning. Branch fluticasone 2020-09 Yes [id number] 2{puff} Inhale 2 [facility] propionate 1-09 Puffs ity of (FLOVENT 00:00: every 12 [place] HFA) 110 00 (twelve) Medical mcg/actuati hours. Branch on inhaler Rinse mouth after each use. levalbutero 2020-09 Yes [id number] .63mg Inhale [facility] l 0.63 mg/3 1-09 0.63 mg 3 ity of mL 00:00: (three) [place] nebulizer 00 times Medical solution daily as Branch needed for Wheezing or Shortness of Breath. losartan 50 2020-09 Yes [id number] 50mg Take 1 [facility] mg tablet -09 tablet by ity o f 00:00: mouth 2 [place] 00 (two) Medical times Branch daily. clotrimazol 2020-09 Yes [id number] Apply to [facility] e-betametha -09 area(s) 2 ity of sone cream 00:00: (two) [place] 00 times Medical daily. Branch cyclobenzap 2020-09 Yes [id number] TAKE 1 [facility] rine 5 mg -09 TABLET BY ity o f tablet 00:00: MOUTH [place] 00 EVERY 8 Medical HOURS Branch NEEDED econazole 2020-09 Yes [id number] Apply to [facility] nitrate 1 % 09 area(s) 2 ity of cream 00:00: (two) [place] 00 times Medical daily. Branch albuterol 2020-09 Yes [id number] 2{puff} Inhale 2 [facility] (PROAIR 1-09 Puffs ity of HFA) 90 00:00: every 6 [place] mcg/actuati 00 (six) Medical on inhaler hours as Branc h needed for Wheezing or Shortness of Breath. triamcinolo 2020-09 Yes [id number] Apply to [facility] ne 0.025 % -09 area(s) 3 ity of ointment 00:00: (three) [place] 00 times Medical daily. For Branch itching diltiazem 2020-09 Yes [id number] 120mg Take 1 [facility] (CARTIA XT) -09 capsule by it y of 120 mg 24 00:00: mouth 2 [place] hr capsule 00 (two) Medical times Branch daily. cyanocobala 2020-09 Yes [id number] 1000ug 1 mL by [facility] min 1,000 -09 Intramuscu ity of mcg/mL 00:00: lar route [place] injection 00 every 2 Medical (two) Branch weeks. levothyroxi 2020-09 Yes [id number] 50ug Take 1 [facility] ne 50 mcg 1-09 tablet by ity o f tablet 00:00: mouth [place] 00 every Medical morning. Branch fluticasone 2020-09 Yes [id number] 2{puff} Inhale 2 [facility] propionate 1-09 Puffs ity of (FLOVENT 00:00: every 12 [place] HFA) 110 00 (twelve) Medical mcg/actuati hours. Branch on inhaler Rinse mouth after each use. levalbutero 2020-09 Yes [id number] .63mg Inhale [facility] l 0.63 mg/3 1-09 0.63 mg 3 ity of mL 00:00: (three) [place] nebulizer 00 times Medical solution daily as Branch needed for Wheezing or Shortness of Breath. losartan 50 2020-09 Yes [id number] 50mg Take 1 [facility] mg tablet 1-09 tablet by ity o f 00:00: mouth 2 [place] 00 (two) Medical times Branch daily. clotrimazol 2020-09 Yes [id number] Apply to [facility] e-betametha -09 area(s) 2 ity of sone cream 00:00: (two) [place] 00 times Medical daily. Branch cyclobenzap 2020-09 Yes [id number] TAKE 1 [facility] rine 5 mg 1-09 TABLET BY ity o f tablet 00:00: MOUTH [place] 00 EVERY 8 Medical HOURS Branch NEEDED econazole 2020-09 Yes [id number] Apply to [facility] nitrate 1 % 09 area(s) 2 ity of cream 00:00: (two) [place] 00 times Medical daily. Branch albuterol 2020-09 Yes [id number] 2{puff} Inhale 2 [facility] (PROAIR 1-09 Puffs ity of HFA) 90 00:00: every 6 [place] mcg/actuati 00 (six) Medical on inhaler hours as Branc h needed for Wheezing or Shortness of Breath. triamcinolo 2020-09 Yes [id number] Apply to [facility] ne 0.025 % 1-09 area(s) 3 ity of ointment 00:00: (three) [place] 00 times Medical daily. For Branch itching diltiazem 2020-09 Yes [id number] 120mg Take 1 [facility] (CARTIA XT) 1-09 capsule by it y of 120 mg 24 00:00: mouth 2 [place] hr capsule 00 (two) Medical times Branch daily. cyanocobala 2020-09 Yes [id number] 1000ug 1 mL by [facility] min 1,000 -09 Intramuscu ity of mcg/mL 00:00: lar route [place] injection 00 every 2 Medical (two) Branch weeks. levothyroxi 2020-09 Yes [id number] 50ug Take 1 [facility] ne 50 mcg 1-09 tablet by ity o f tablet 00:00: mouth [place] 00 every Medical morning. Branch fluticasone 2020-09 Yes [id number] 2{puff} Inhale 2 [facility] propionate 1-09 Puffs ity of (FLOVENT 00:00: every 12 [place] HFA) 110 00 (twelve) Medical mcg/actuati hours. Branch on inhaler Rinse mouth after each use. levalbutero 2020-09 Yes [id number] .63mg Inhale [facility] l 0.63 mg/3 1-09 0.63 mg 3 ity of mL 00:00: (three) [place] nebulizer 00 times Medical solution daily as Branch needed for Wheezing or Shortness of Breath. losartan 50 2020-09 Yes [id number] 50mg Take 1 [facility] mg tablet -09 tablet by ity o f 00:00: mouth 2 [place] 00 (two) Medical times Branch daily. clotrimazol 2020-09 Yes [id number] Apply to [facility] e-betametha -09 area(s) 2 ity of sone cream 00:00: (two) [place] 00 times Medical daily. Branch cyclobenzap 2020-09 Yes [id number] TAKE 1 [facility] rine 5 mg 1-09 TABLET BY ity o f tablet 00:00: MOUTH [place] 00 EVERY 8 Medical HOURS Branch NEEDED econazole 2020-09 Yes [id number] Apply to [facility] nitrate 1 % 09 area(s) 2 ity of cream 00:00: (two) [place] 00 times Medical daily. Branch albuterol 2020-09 Yes [id number] 2{puff} Inhale 2 [facility] (PROAIR 1-09 Puffs ity of HFA) 90 00:00: every 6 [place] mcg/actuati 00 (six) Medical on inhaler hours as Branc h needed for Wheezing or Shortness of Breath. triamcinolo 2020-09 Yes [id number] Apply to [facility] ne 0.025 % 10-04 area(s) 3 ity of ointment 00:00: (three) [place] 00 times Medical daily. For Branch itching diltiazem 2020-09 Yes [id number] 120mg Take 1 [facility] (CARTIA XT) 09 capsule by it y of 120 mg 24 00:00: mouth 2 [place] hr capsule 00 (two) Medical times Branch daily. cyanocobala 2020-09 Yes [id number] 1000ug 1 mL by [facility] min 1,000 09 Intramuscu ity of mcg/mL 00:00: lar route [place] injection 00 every 2 Medical (two) Branch weeks. levothyroxi 2020-09 Yes [id number] 50ug Take 1 [facility] ne 50 mcg 10-04 tablet by ity o f tablet 00:00: mouth [place] 00 every Medical morning. Branch fluticasone 2020-09 Yes [id number] 2{puff} Inhale 2 [facility] propionate -09 Puffs ity of (FLOVENT 00:00: every 12 [place] HFA) 110 00 (twelve) Medical mcg/actuati hours. Branch on inhaler Rinse mouth after each use. levalbutero 2020-09 Yes [id number] .63mg Inhale [facility] l 0.63 mg/3 -09 0.63 mg 3 ity of mL 00:00: (three) [place] nebulizer 00 times Medical solution daily as Branch needed for Wheezing or Shortness of Breath. losartan 50 2020-09 Yes [id number] 50mg Take 1 [facility] mg tablet 09 tablet by ity o f 00:00: mouth 2 [place] 00 (two) Medical times Branch daily. clotrimazol 2020-09 Yes [id number] Apply to [facility] e-betametha 09 area(s) 2 ity of sone cream 00:00: (two) [place] 00 times Medical daily. Branch cyclobenzap 2020-09 Yes [id number] TAKE 1 [facility] rine 5 mg -09 TABLET BY ity o f tablet 00:00: MOUTH [place] 00 EVERY 8 Medical HOURS Branch NEEDED econazole 2020-09 Yes [id number] Apply to [facility] nitrate 1 % 10-04 area(s) 2 ity of cream 00:00: (two) [place] 00 times Medical daily. Branch albuterol 2020-09 Yes [id number] 2{puff} Inhale 2 [facility] (PROAIR 1-09 Puffs ity of HFA) 90 00:00: every 6 [place] mcg/actuati 00 (six) Medical on inhaler hours as Branc h needed for Wheezing or Shortness of Breath. triamcinolo 2020-09 Yes [id number] Apply to [facility] ne 0.025 % 1-09 area(s) 3 ity of ointment 00:00: (three) [place] 00 times Medical daily. For Branch itching diltiazem 2020-09 Yes [id number] 120mg Take 1 [facility] (CARTIA XT) 1-09 capsule by it y of 120 mg 24 00:00: mouth 2 [place] hr capsule 00 (two) Medical times Branch daily. cyanocobala 2020-09 Yes [id number] 1000ug 1 mL by [facility] min 1,000 1-09 Intramuscu ity of mcg/mL 00:00: lar route [place] injection 00 every 2 Medical (two) Branch weeks. levothyroxi 2020-09 Yes [id number] 50ug Take 1 [facility] ne 50 mcg 1-09 tablet by ity o f tablet 00:00: mouth [place] 00 every Medical morning. Branch fluticasone 2020-09 Yes [id number] 2{puff} Inhale 2 [facility] propionate 1-09 Puffs ity of (FLOVENT 00:00: every 12 [place] HFA) 110 00 (twelve) Medical mcg/actuati hours. Branch on inhaler Rinse mouth after each use. levalbutero 2020-09 Yes [id number] .63mg Inhale [facility] l 0.63 mg/3 1-09 0.63 mg 3 ity of mL 00:00: (three) [place] nebulizer 00 times Medical solution daily as Branch needed for Wheezing or Shortness of Breath. losartan 50 2020-09 Yes [id number] 50mg Take 1 [facility] mg tablet 1-09 tablet by ity o f 00:00: mouth 2 [place] 00 (two) Medical times Branch daily. clotrimazol 2020-09 Yes [id number] Apply to [facility] e-betametha 1-09 area(s) 2 ity of sone cream 00:00: (two) [place] 00 times Medical daily. Branch cyclobenzap 2020-09 Yes [id number] TAKE 1 [facility] rine 5 mg 1-09 TABLET BY ity o f tablet 00:00: MOUTH [place] 00 EVERY 8 Medical HOURS Branch NEEDED econazole 2020-09 Yes [id number] Apply to [facility] nitrate 1 % 1-09 area(s) 2 ity of cream 00:00: (two) [place] 00 times Medical daily. Branch albuterol 2020-09 Yes [id number] 2{puff} Inhale 2 [facility] (PROAIR 1-09 Puffs ity of HFA) 90 00:00: every 6 [place] mcg/actuati 00 (six) Medical on inhaler hours as Branc h needed for Wheezing or Shortness of Breath. triamcinolo 2020-09 Yes [id number] Apply to [facility] ne 0.025 % -09 area(s) 3 ity of ointment 00:00: (three) [place] 00 times Medical daily. For Branch itching diltiazem 2020-09 Yes [id number] 120mg Take 1 [facility] (CARTIA XT) 1-09 capsule by it y of 120 mg 24 00:00: mouth 2 [place] hr capsule 00 (two) Medical times Branch daily. cyanocobala 2020-09 Yes [id number] 1000ug 1 mL by [facility] min 1,000 1-09 Intramuscu ity of mcg/mL 00:00: lar route [place] injection 00 every 2 Medical (two) Branch weeks. levothyroxi 2020-09 Yes [id number] 50ug Take 1 [facility] ne 50 mcg 1-09 tablet by ity o f tablet 00:00: mouth [place] 00 every Medical morning. Branch fluticasone 2020-09 Yes [id number] 2{puff} Inhale 2 [facility] propionate 1-09 Puffs ity of (FLOVENT 00:00: every 12 [place] HFA) 110 00 (twelve) Medical mcg/actuati hours. Branch on inhaler Rinse mouth after each use. levalbutero 2020-09 Yes [id number] .63mg Inhale [facility] l 0.63 mg/3 1-09 0.63 mg 3 ity of mL 00:00: (three) [place] nebulizer 00 times Medical solution daily as Branch needed for Wheezing or Shortness of Breath. losartan 50 2020-09 Yes [id number] 50mg Take 1 [facility] mg tablet 1-09 tablet by ity o f 00:00: mouth 2 [place] 00 (two) Medical times Branch daily. clotrimazol 2020-09 Yes [id number] Apply to [facility] e-betametha -09 area(s) 2 ity of sone cream 00:00: (two) [place] 00 times Medical daily. Branch cyclobenzap 2020-09 Yes [id number] TAKE 1 [facility] rine 5 mg -09 TABLET BY ity o f tablet 00:00: MOUTH [place] 00 EVERY 8 Medical HOURS Branch NEEDED econazole 2020-09 Yes [id number] Apply to [facility] nitrate 1 % 09 area(s) 2 ity of cream 00:00: (two) [place] 00 times Medical daily. Branch albuterol 2020-09 Yes [id number] 2{puff} Inhale 2 [facility] (PROAIR 1-09 Puffs ity of HFA) 90 00:00: every 6 [place] mcg/actuati 00 (six) Medical on inhaler hours as Branc h needed for Wheezing or Shortness of Breath. triamcinolo 2020-09 Yes [id number] Apply to [facility] ne 0.025 % 10-04 area(s) 3 ity of ointment 00:00: (three) [place] 00 times Medical daily. For Branch itching diltiazem 2020-09 Yes [id number] 120mg Take 1 [facility] (CARTIA XT) 09 capsule by it y of 120 mg 24 00:00: mouth 2 [place] hr capsule 00 (two) Medical times Branch daily. cyanocobala 2020-09 Yes [id number] 1000ug 1 mL by [facility] min 1,000 -09 Intramuscu ity of mcg/mL 00:00: lar route [place] injection 00 every 2 Medical (two) Branch weeks. levothyroxi 2020-09 Yes [id number] 50ug Take 1 [facility] ne 50 mcg 1-09 tablet by ity o f tablet 00:00: mouth [place] 00 every Medical morning. Branch fluticasone 2020-09 Yes [id number] 2{puff} Inhale 2 [facility] propionate 1-09 Puffs ity of (FLOVENT 00:00: every 12 [place] HFA) 110 00 (twelve) Medical mcg/actuati hours. Branch on inhaler Rinse mouth after each use. levalbutero 2020-09 Yes [id number] .63mg Inhale [facility] l 0.63 mg/3 1-09 0.63 mg 3 ity of mL 00:00: (three) [place] nebulizer 00 times Medical solution daily as Branch needed for Wheezing or Shortness of Breath. losartan 50 2020-09 Yes [id number] 50mg Take 1 [facility] mg tablet 1-09 tablet by ity o f 00:00: mouth 2 [place] 00 (two) Medical times Branch daily. clotrimazol 2020-09 Yes [id number] Apply to [facility] e-betametha -09 area(s) 2 ity of sone cream 00:00: (two) [place] 00 times Medical daily. Branch cyclobenzap 2020-09 Yes [id number] TAKE 1 [facility] rine 5 mg -09 TABLET BY ity o f tablet 00:00: MOUTH [place] 00 EVERY 8 Medical HOURS Branch NEEDED econazole 2020-09 Yes [id number] Apply to [facility] nitrate 1 % 10-04 area(s) 2 ity of cream 00:00: (two) [place] 00 times Medical daily. Branch albuterol 2020-09 Yes [id number] 2{puff} Inhale 2 [facility] (PROAIR -09 Puffs ity of HFA) 90 00:00: every 6 [place] mcg/actuati 00 (six) Medical on inhaler hours as Branc h needed for Wheezing or Shortness of Breath. triamcinolo 2020-09 Yes [id number] Apply to [facility] ne 0.025 % 10-04 area(s) 3 ity of ointment 00:00: (three) [place] 00 times Medical daily. For Branch itching diltiazem 2020-09 Yes [id number] 120mg Take 1 [facility] (CARTIA XT) -09 capsule by it y of 120 mg 24 00:00: mouth 2 [place] hr capsule 00 (two) Medical times Branch daily. cyanocobala 2020-09 Yes [id number] 1000ug 1 mL by [facility] min 1,000 -09 Intramuscu ity of mcg/mL 00:00: lar route [place] injection 00 every 2 Medical (two) Branch weeks. levothyroxi 2020-09 Yes [id number] 50ug Take 1 [facility] ne 50 mcg -09 tablet by ity o f tablet 00:00: mouth [place] 00 every Medical morning. Branch fluticasone 2020-09 Yes [id number] 2{puff} Inhale 2 [facility] propionate 1-09 Puffs ity of (FLOVENT 00:00: every 12 [place] HFA) 110 00 (twelve) Medical mcg/actuati hours. Branch on inhaler Rinse mouth after each use. levalbutero 2020-09 Yes [id number] .63mg Inhale [facility] l 0.63 mg/3 1-09 0.63 mg 3 ity of mL 00:00: (three) [place] nebulizer 00 times Medical solution daily as Branch needed for Wheezing or Shortness of Breath. losartan 50 2020-09 Yes [id number] 50mg Take 1 [facility] mg tablet -09 tablet by ity o f 00:00: mouth 2 [place] 00 (two) Medical times Branch daily. clotrimazol 2020-09 Yes [id number] Apply to [facility] e-betametha -09 area(s) 2 ity of sone cream 00:00: (two) [place] 00 times Medical daily. Branch cyclobenzap 2020-09 Yes [id number] TAKE 1 [facility] rine 5 mg -09 TABLET BY ity o f tablet 00:00: MOUTH [place] 00 EVERY 8 Medical HOURS Branch NEEDED econazole 2020-09 Yes [id number] Apply to [facility] nitrate 1 % 09 area(s) 2 ity of cream 00:00: (two) [place] 00 times Medical daily. Branch albuterol 2020-09 Yes [id number] 2{puff} Inhale 2 [facility] (PROAIR 1-09 Puffs ity of HFA) 90 00:00: every 6 [place] mcg/actuati 00 (six) Medical on inhaler hours as Branc h needed for Wheezing or Shortness of Breath. triamcinolo 2020-09 Yes [id number] Apply to [facility] ne 0.025 % -09 area(s) 3 ity of ointment 00:00: (three) [place] 00 times Medical daily. For Branch itching diltiazem 2020-09 Yes [id number] 120mg Take 1 [facility] (CARTIA XT) -09 capsule by it y of 120 mg 24 00:00: mouth 2 [place] hr capsule 00 (two) Medical times Branch daily. cyanocobala 2020-09 Yes [id number] 1000ug 1 mL by [facility] min 1,000 1-09 Intramuscu ity of mcg/mL 00:00: lar route [place] injection 00 every 2 Medical (two) Branch weeks. levothyroxi 2020-09 Yes [id number] 50ug Take 1 [facility] ne 50 mcg 1-09 tablet by ity o f tablet 00:00: mouth [place] 00 every Medical morning. Branch fluticasone 2020-09 Yes [id number] 2{puff} Inhale 2 [facility] propionate 1-09 Puffs ity of (FLOVENT 00:00: every 12 [place] HFA) 110 00 (twelve) Medical mcg/actuati hours. Branch on inhaler Rinse mouth after each use. levalbutero 2020-09 Yes [id number] .63mg Inhale [facility] l 0.63 mg/3 1-09 0.63 mg 3 ity of mL 00:00: (three) [place] nebulizer 00 times Medical solution daily as Branch needed for Wheezing or Shortness of Breath. losartan 50 2020-09 Yes [id number] 50mg Take 1 [facility] mg tablet 1-09 tablet by ity o f 00:00: mouth 2 [place] 00 (two) Medical times Branch daily. clotrimazol 2020-09 Yes [id number] Apply to [facility] e-betametha 1-09 area(s) 2 ity of sone cream 00:00: (two) [place] 00 times Medical daily. Branch cyclobenzap 2020-09 Yes [id number] TAKE 1 [facility] rine 5 mg 1-09 TABLET BY ity o f tablet 00:00: MOUTH [place] 00 EVERY 8 Medical HOURS Branch NEEDED econazole 2020-09 Yes [id number] Apply to [facility] nitrate 1 % 1-09 area(s) 2 ity of cream 00:00: (two) [place] 00 times Medical daily. Branch albuterol 2020-09 Yes [id number] 2{puff} Inhale 2 [facility] (PROAIR 1-09 Puffs ity of HFA) 90 00:00: every 6 [place] mcg/actuati 00 (six) Medical on inhaler hours as Branc h needed for Wheezing or Shortness of Breath. triamcinolo 2020-09 Yes [id number] Apply to [facility] ne 0.025 % 1-09 area(s) 3 ity of ointment 00:00: (three) [place] 00 times Medical daily. For Branch itching diltiazem 2020-09 Yes [id number] 120mg Take 1 [facility] (CARTIA XT) 10-04 capsule by it y of 120 mg 24 00:00: mouth 2 [place] hr capsule 00 (two) Medical times Branch daily. cyclobenzap 2020-09- No [id number] TAKE 1 [facility] rine 5 mg 10-04 TABLET BY ity of tablet 00:00: 00:00 MOUTH [place] 00 :00 EVERY 8 Medical HOURS Branch NEEDED cyclobenzap 2020-09- No [id number] TAKE 1 [facility] rine 5 mg 10-04 TABLET BY ity of tablet 00:00: 00:00 MOUTH [place] 00 :00 EVERY 8 Medical HOURS Branch NEEDED cyclobenzap 2020-09- No [id number] TAKE 1 [facility] rine 5 mg 10-04 TABLET BY ity of tablet 00:00: 00:00 MOUTH [place] 00 :00 EVERY 8 Medical HOURS Branch NEEDED cyclobenzap 2020-09- No [id number] TAKE 1 [facility] rine 5 mg 10-04 TABLET BY ity of tablet 00:00: 00:00 MOUTH [place] 00 :00 EVERY 8 Medical HOURS Branch NEEDED cyclobenzap 2020-09- No [id number] TAKE 1 [facility] rine 5 mg 10-04 TABLET BY ity of tablet 00:00: 00:00 MOUTH [place] 00 :00 EVERY 8 Medical HOURS Branch NEEDED cyclobenzap 2020-09- No [id number] TAKE 1 [facility] rine 5 mg 10-04 TABLET BY ity of tablet 00:00: 00:00 MOUTH [place] 00 :00 EVERY 8 Medical HOURS Branch NEEDED cyclobenzap 2020-09- No [id number] TAKE 1 [facility] rine 5 mg 10-04 TABLET BY ity of tablet 00:00: 00:00 MOUTH [place] 00 :00 EVERY 8 Medical HOURS Branch NEEDED cyclobenzap 2020-09- No [id number] TAKE 1 [facility] rine 5 mg 10-04 TABLET BY ity of tablet 00:00: 00:00 MOUTH [place] 00 :00 EVERY 8 Medical HOURS Branch NEEDED cyclobenzap 2020-09- No [id number] TAKE 1 [facility] rine 5 mg 1-09 01-24 TABLET BY ity of tablet 00:00: 00:00 MOUTH [place] 00 :00 EVERY 8 Medical HOURS Branch NEEDED cyclobenzap 2020-09- No [id number] TAKE 1 [facility] rine 5 mg 10-04 TABLET BY ity of tablet 00:00: 00:00 MOUTH [place] 00 :00 EVERY 8 Medical HOURS Branch NEEDED cyclobenzap 2020-093- No [id number] TAKE 1 [facility] rine 5 mg 10-04 TABLET BY ity of tablet 00:00: 00:00 MOUTH [place] 00 :00 EVERY 8 Medical HOURS Branch NEEDED cyclobenzap 2020-09- No [id number] TAKE 1 [facility] rine 5 mg 10-04 TABLET BY ity of tablet 00:00: 00:00 MOUTH [place] 00 :00 EVERY 8 Medical HOURS Branch NEEDED cyclobenzap 2020-09- No [id number] TAKE 1 [facility] rine 5 mg 10-04 TABLET BY ity of tablet 00:00: 00:00 MOUTH [place] 00 :00 EVERY 8 Medical HOURS Branch NEEDED cyclobenzap 2020-09- No [id number] TAKE 1 [facility] rine 5 mg 10-04 TABLET BY ity of tablet 00:00: 00:00 MOUTH [place] 00 :00 EVERY 8 Medical HOURS Branch NEEDED cyclobenzap 2020-09- No [id number] TAKE 1 [facility] rine 5 mg 10-04 TABLET BY ity of tablet 00:00: 00:00 MOUTH [place] 00 :00 EVERY 8 Medical HOURS Branch NEEDED cyanocobala 2020-09- No [id number] 1000ug 1 mL by [facility] min 1,000 10-0430 Intramuscu ity of mcg/mL 00:00: 00:00 lar route [place] injection 00 :00 every 2 Medical (two) Branch weeks. cyanocobala 2020-09- No [id number] 1000ug 1 mL by [facility] min 1,000 10-0430 Intramuscu ity of mcg/mL 00:00: 00:00 lar route [place] injection 00 :00 every 2 Medical (two) Branch weeks. cyanocobala 2020-09- No [id number] 1000ug 1 mL by [facility] min 1,000 1-09 11-30 Intramuscu ity of mcg/mL 00:00: 00:00 lar route [place] injection 00 :00 every 2 Medical (two) Branch weeks. cyanocobala 2020-09- No [id number] 1000ug 1 mL by [facility] min 1,000 1-09 11-30 Intramuscu ity of mcg/mL 00:00: 00:00 lar route [place] injection 00 :00 every 2 Medical (two) Branch weeks. cyanocobala 2020-09- No [id number] 1000ug 1 mL by [facility] min 1,000 1-09 11-30 Intramuscu ity of mcg/mL 00:00: 00:00 lar route [place] injection 00 :00 every 2 Medical (two) Branch weeks. cyanocobala 2020-09- No [id number] 1000ug 1 mL by [facility] min 1,000 1-09 11-30 Intramuscu ity of mcg/mL 00:00: 00:00 lar route [place] injection 00 :00 every 2 Medical (two) Branch weeks. cyanocobala 2020-09- No [id number] 1000ug 1 mL by [facility] min 1,000 1-09 11-30 Intramuscu ity of mcg/mL 00:00: 00:00 lar route [place] injection 00 :00 every 2 Medical (two) Branch weeks. cyanocobala 2020-09- No [id number] 1000ug 1 mL by [facility] min 1,000 1-09 11-30 Intr[facility] of mcg/mL 00:00: 00:00 lar route [place] injection 00 :00 every 2 Medical (two) Branch weeks. cyanocobala 2020-09- No [id number] 1000ug 1 mL by [facility] min 1,000 1-09 11-30 [facility] of mcg/mL 00:00: 00:00 lar route [place] injection 00 :00 every 2 Medical (two) Branch weeks. cyanocobala 2020-09- No [id number] 1000ug 1 mL by [facility] min 1,000 1-09 11-30 [facility] of mcg/mL 00:00: 00:00 lar route [place] injection 00 :00 every 2 Medical (two) Branch weeks. cyanocobala 2020-09- No [id number] 1000ug 1 mL by [facility] min 1,000 10-04 [facility] of mcg/mL 00:00: 00:00 lar route [place] injection 00 :00 every 2 Medical (two) Branch weeks. fluticasone 2020-09- No [id number] 2{puff} Inhale 2 [facility] propionate 10-04 Puffs ity of (FLOVENT 00:00: 00:00 every 12 [place] HFA[place] 110 00 :00 (twelve) Medical mcg/actuati hours. Branch on inhaler Rinse mouth after each use. clotrimazol 2020-09- No [id number] Apply to [facility] e-betametha 10-04 area(s) 2 it y of sone cream 00:00: 00:00 (two) [place] 00 :00 times Medical daily. Branch econazole 2020-09- No [id number] Apply to [facility] nitrate 1 % 10-04 area(s) 2 it y of cream 00:00: 00:00 (two) [place] 00 :00 times Medical daily. Branch triamcinolo 2020-09- No [id number] Apply to [facility] ne 0.025 % 10-04 area(s) 3 ity of ointment 00:00: 00:00 (three) [place] 00 :00 times Medical daily. For Branch itching fluticasone 2020-09- No [id number] 2{puff} Inhale 2 [facility] propionate 10-04 Puffs ity of (FLOVENT 00:00: 00:00 every 12 [place] HFA[place] 110 00 :00 (twelve) Medical mcg/actuati hours. Branch on inhaler Rinse mouth after each use. clotrimazol 2020-09- No [id number] Apply to [facility] e-betametha 10-04 area(s) 2 it y of sone cream 00:00: 00:00 (two) [place] 00 :00 times Medical daily. Branch econazole 2020-09- No [id number] Apply to [facility] nitrate 1 % 10-04 area(s) 2 it y of cream 00:00: 00:00 (two) [place] 00 :00 times Medical daily. Branch triamcinolo 2020-09- No [id number] Apply to [facility] ne 0.025 % 10-04 area(s) 3 ity of ointment 00:00: 00:00 (three) [place] 00 :00 times Medical daily. For Branch itching fluticasone 2020-09- No [id number] 2{puff} Inhale 2 [facility] propionate 10-04 Puffs ity of (FLOVENT 00:00: 00:00 every 12 [place] HFA[place] 110 00 :00 (twelve) Medical mcg/actuati hours. Branch on inhaler Rinse mouth after each use. clotrimazol 2020-09- No [id number] Apply to [facility] e-betametha 10-04 area(s) 2 it y of sone cream 00:00: 00:00 (two) [place] 00 :00 times Medical daily. Branch econazole 2020-09- No [id number] Apply to [facility] nitrate 1 % 10-04 area(s) 2 it y of cream 00:00: 00:00 (two) [place] 00 :00 times Medical daily. Branch triamcinolo 2020-09- No [id number] Apply to [facility] ne 0.025 % 10-04 area(s) 3 ity of ointment 00:00: 00:00 (three) [place] 00 :00 times Medical daily. For Branch itching fluticasone 2020-09- No [id number] 2{puff} Inhale 2 [facility] propionate 10-04 Puffs ity of (FLOVENT 00:00: 00:00 every 12 [place] HFA[place] 110 00 :00 (twelve) Medical mcg/actuati hours. Branch on inhaler Rinse mouth after each use. clotrimazol 2020-09- No [id number] Apply to [facility] e-betametha 10-04 area(s) 2 it y of sone cream 00:00: 00:00 (two) [place] 00 :00 times Medical daily. Branch econazole 2020-09- No [id number] Apply to [facility] nitrate 1 % 10-04 area(s) 2 it y of cream 00:00: 00:00 (two) [place] 00 :00 times Medical daily. Branch triamcinolo 2020-09- No [id number] Apply to [facility] ne 0.025 % 10-04 area(s) 3 ity of ointment 00:00: 00:00 (three) [place] 00 :00 times Medical daily. For Branch itching fluticasone 2020-09- No [id number] 2{puff} Inhale 2 [facility] propionate 10-04 Puffs ity of (FLOVENT 00:00: 00:00 every 12 [place] HFA[place] 110 00 :00 (twelve) Medical mcg/actuati hours. Branch on inhaler Rinse mouth after each use. clotrimazol 2020-09- No [id number] Apply to [facility] e-betametha 10-04 area(s) 2 it y of sone cream 00:00: 00:00 (two) [place] 00 :00 times Medical daily. Branch econazole 2020-09- No [id number] Apply to [facility] nitrate 1 % 10-04 area(s) 2 it y of cream 00:00: 00:00 (two) [place] 00 :00 times Medical daily. Branch triamcinolo 2020-09- No [id number] Apply to [facility] ne 0.025 % 10-04 area(s) 3 ity of ointment 00:00: 00:00 (three) [place] 00 :00 times Medical daily. For Branch itching fluticasone 2020-09- No [id number] 2{puff} Inhale 2 [facility] propionate 10-04 Puffs ity of (FLOVENT 00:00: 00:00 every 12 [place] HFA[place] 110 00 :00 (twelve) Medical mcg/actuati hours. Branch on inhaler Rinse mouth after each use. clotrimazol 2020-09- No [id number] Apply to [facility] e-betametha 10-04 area(s) 2 it y of sone cream 00:00: 00:00 (two) [place] 00 :00 times Medical daily. Branch econazole 2020-09- No [id number] Apply to [facility] nitrate 1 % 10-04 area(s) 2 it y of cream 00:00: 00:00 (two) [place] 00 :00 times Medical daily. Branch triamcinolo 2020-09- No [id number] Apply to [facility] ne 0.025 % 10-04 area(s) 3 ity of ointment 00:00: 00:00 (three) [place] 00 :00 times Medical daily. For Branch itching fluticasone 2020-09- No [id number] 2{puff} Inhale 2 [facility] propionate 10-04 Puffs ity of (FLOVENT 00:00: 00:00 every 12 [place] HFA[place] 110 00 :00 (twelve) Medical mcg/actuati hours. Branch on inhaler Rinse mouth after each use. clotrimazol 2020-09- No [id number] Apply to [facility] e-betametha 10-04 area(s) 2 it y of sone cream 00:00: 00:00 (two) [place] 00 :00 times Medical daily. Branch econazole 2020-09- No [id number] Apply to [facility] nitrate 1 % 10-04 area(s) 2 it y of cream 00:00: 00:00 (two) [place] 00 :00 times Medical daily. Branch triamcinolo 2020-09- No [id number] Apply to [facility] ne 0.025 % 10-04 area(s) 3 ity of ointment 00:00: 00:00 (three) [place] 00 :00 times Medical daily. For Branch itching fluticasone 2020-09- No [id number] 2{puff} Inhale 2 [facility] propionate 10-04 Puffs ity of (FLOVENT 00:00: 00:00 every 12 [place] HFA) 110 00 :00 (twelve) Medical mcg/actuati hours. Branch on inhaler Rinse mouth after each use. clotrimazol 2020-09- No [id number] Apply to [facility] e-betametha 10-04 area(s) 2 it y of sone cream 00:00: 00:00 (two) [place] 00 :00 times Medical daily. Branch econazole 2020-09 No [id number] Apply to [facility] nitrate 1 % 10-04 area(s) 2 it y of cream 00:00: 00:00 (two) [place] 00 :00 times Medical daily. Branch triamcinolo 2020-09- No [id number] Apply to [facility] ne 0.025 % 10-04 area(s) 3 ity of ointment 00:00: 00:00 (three) [place] 00 :00 times Medical daily. For Branch itching fluticasone 2020-09- No [id number] 2{puff} Inhale 2 [facility] propionate 10-04 Puffs ity of (FLOVENT 00:00: 00:00 every 12 [place] HFA) 110 00 :00 (twelve) Medical mcg/actuati hours. Branch on inhaler Rinse mouth after each use. clotrimazol 2020-09- No [id number] Apply to [facility] e-betametha 10-04 area(s) 2 it y of sone cream 00:00: 00:00 (two) [place] 00 :00 times Medical daily. Branch econazole 2020-09- No [id number] Apply to [facility] nitrate 1 % 10-04 area(s) 2 it y of cream 00:00: 00:00 (two) [place] 00 :00 times Medical daily. Branch teressaamcinolo 2020-09- No [id number] Apply to [facility] ne 0.025 % 10-04 area(s) 3 ity of ointment 00:00: 00:00 (three) [place] 00 :00 times Medical daily. For Branch itching fluticasone 2020-09- No [id number] 2{puff} Inhale 2 [facility] propionate 10-04 Puffs ity of (FLOVENT 00:00: 00:00 every 12 [place] HFA) 110 00 :00 (twelve) Medical mcg/actuati hours. Branch on inhaler Rinse mouth after each use. clotrimazol 2020-09- No [id number] Apply to [facility] e-betametha 10-04 area(s) 2 it y of sone cream 00:00: 00:00 (two) [place] 00 :00 times Medical daily. Branch econazole 2020-09- No [id number] Apply to [facility] nitrate 1 % 10-04 area(s) 2 it y of cream 00:00: 00:00 (two) [place] 00 :00 times Medical daily. Branch triamcinolo 2020-09- No [id number] Apply to [facility] ne 0.025 % 10-04 area(s) 3 ity of ointment 00:00: 00:00 (three) [place] 00 :00 times Medical daily. For Branch itching fluticasone 2020-09- No [id number] 2{puff} Inhale 2 [facility] propionate 10-04 Puffs ity of (FLOVENT 00:00: 00:00 every 12 [place] HFA) 110 00 :00 (twelve) Medical mcg/actuati hours. Branch on inhaler Rinse mouth after each use. clotrimazol 2020-09- No [id number] Apply to [facility] e-betametha 10-04 area(s) 2 it y of sone cream 00:00: 00:00 (two) [place] 00 :00 times Medical daily. Branch econazole 2020-09- No [id number] Apply to [facility] nitrate 1 % 10-04 area(s) 2 it y of cream 00:00: 00:00 (two) [place] 00 :00 times Medical daily. Branch triamcinolo 2020-09- No [id number] Apply to [facility] ne 0.025 % 10-04 area(s) 3 ity of ointment 00:00: 00:00 (three) [place] 00 :00 times Medical daily. For Branch itching fluticasone 2020-09- No [id number] 2{puff} Inhale 2 [facility] propionate 10-04 Puffs ity of (FLOVENT 00:00: 00:00 every 12 [place] HFA) 110 00 :00 (twelve) Medical mcg/actuati hours. Branch on inhaler Rinse mouth after each use. clotrimazol 2020-09- No [id number] Apply to [facility] e-betametha 10-04 area(s) 2 it y of sone cream 00:00: 00:00 (two) [place] 00 :00 times Medical daily. Branch econazole 2020-09- No [id number] Apply to [facility] nitrate 1 % 10-04 area(s) 2 it y of cream 00:00: 00:00 (two) [place] 00 :00 times Medical daily. Branch triamcinolo 2020-09- No [id number] Apply to [facility] ne 0.025 % 10-04 area(s) 3 ity of ointment 00:00: 00:00 (three) [place] 00 :00 times Medical daily. For Branch itching levothyroxi 2020-09- No [id number] 50ug Take 1 [facility] ne 50 mcg 10-04-13 tablet by ity of tablet 00:00: 00:00 mouth [place] 00 :00 every Medical morning. Branch levothyroxi 2020-09- No [id number] 50ug Take 1 [facility] ne 50 mcg 10-04-13 tablet by ity of tablet 00:00: 00:00 mouth [place] 00 :00 every Medical morning. Branch levothyroxi 2020-09- No [id number] 50ug Take 1 [facility] ne 50 mcg 10-04-13 tablet by ity of tablet 00:00: 00:00 mouth [place] 00 :00 every Medical morning. Branch levothyroxi 2020-09- No [id number] 50ug Take 1 [facility] ne 50 mcg 10-04-13 tablet by ity of tablet 00:00: 00:00 mouth [place] 00 :00 every Medical morning. Branch levothyroxi 2020-09- No [id number] 50ug Take 1 [facility] ne 50 mcg 10-04-13 tablet by ity of tablet 00:00: 00:00 mouth [place] 00 :00 every Medical morning. Branch levothyroxi 2020-09- No [id number] 50ug Take 1 [facility] ne 50 mcg 10-04 10-13 tablet by ity of tablet 00:00: 00:00 mouth [place] 00 :00 every Medical morning. Branch levothyroxi 2020-09- No [id number] 50ug Take 1 [facility] ne 50 mcg 10-04 10-13 tablet by ity of tablet 00:00: 00:00 mouth [place] 00 :00 every Medical morning. Branch levothyroxi 2020-09- No [id number] 50ug Take 1 [facility] ne 50 mcg 10-04 tablet by ity of tablet 00:00: 00:00 mouth [place] 00 :00 every Medical morning. Branch levothyroxi 2020-09- No [id number] 50ug Take 1 [facility] ne 50 mcg 10-04 tablet by ity of tablet 00:00: 00:00 mouth [place] 00 :00 every Medical morning. Branch levothyroxi 2020-09- No [id number] 50ug Take 1 [facility] ne 50 mcg 10-04 tablet by ity of tablet 00:00: 00:00 mouth [place] 00 :00 every Medical morning. Branch levothyroxi 2020-09- No [id number] 50ug Take 1 [facility] ne 50 mcg 10-04 tablet by ity of tablet 00:00: 00:00 mouth [place] 00 :00 every Medical morning. Branch losartan 50 2020-09- No [id number] 50mg Take 1 [facility] mg tablet 10-04 tablet by ity of 00:00: 00:00 mouth 2 [place] 00 :00 (two) Medical times Branch daily. diltiazem 2020-09- No [id number] 120mg Take 1 [facility] (CARTIA XT) 10-04 capsule by i ty of 120 mg 24 00:00: 00:00 mouth 2 [place] hr capsule 00 :00 (two) Medical times Branch daily. losartan 50 2020-09- No [id number] 50mg Take 1 [facility] mg tablet 10-04 tablet by ity of 00:00: 00:00 mouth 2 [place] 00 :00 (two) Medical times Branch daily. diltiazem 2020-09- No [id number] 120mg Take 1 [facility] (CARTIA XT) 10-04 capsule by i ty of 120 mg 24 00:00: 00:00 mouth 2 [place] hr capsule 00 :00 (two) Medical times Branch daily. losartan 50 2020-09- No [id number] 50mg Take 1 [facility] mg tablet 10-04 tablet by ity of 00:00: 00:00 mouth 2 [place] 00 :00 (two) Medical times Branch daily. diltiazem 2020-09- No [id number] 120mg Take 1 [facility] (CARTIA XT) 10-04 capsule by i ty of 120 mg 24 00:00: 00:00 mouth 2 [place] hr capsule 00 :00 (two) Medical times Branch daily. losartan 50 2020-09- No [id number] 50mg Take 1 [facility] mg tablet 10-04 tablet by ity of 00:00: 00:00 mouth 2 [place] 00 :00 (two) Medical times Branch daily. diltiazem 2020-09- No [id number] 120mg Take 1 [facility] (CARTIA XT) 10-04 capsule by i ty of 120 mg 24 00:00: 00:00 mouth 2 [place] hr capsule 00 :00 (two) Medical times Branch daily. losartan 50 2020-09- No [id number] 50mg Take 1 [facility] mg tablet 10-04 tablet by ity of 00:00: 00:00 mouth 2 [place] 00 :00 (two) Medical times Branch daily. diltiazem 2020-09- No [id number] 120mg Take 1 [facility] (CARTIA XT) 10-04 capsule by i ty of 120 mg 24 00:00: 00:00 mouth 2 [place] hr capsule 00 :00 (two) Medical times Branch daily. losartan 50 2020-09- No [id number] 50mg Take 1 [facility] mg tablet 10-04 tablet by ity of 00:00: 00:00 mouth 2 [place] 00 :00 (two) Medical times Branch daily. diltiazem 2020-09- No [id number] 120mg Take 1 [facility] (CARTIA XT) 10-04 capsule by i ty of 120 mg 24 00:00: 00:00 mouth 2 [place] hr capsule 00 :00 (two) Medical times Branch daily. losartan 50 2020-09- No [id number] 50mg Take 1 [facility] mg tablet 10-04 tablet by ity of 00:00: 00:00 mouth 2 [place] 00 :00 (two) Medical times Branch daily. diltiazem 2020-09- No [id number] 120mg Take 1 [facility] (CARTIA XT) 10-04 capsule by i ty of 120 mg 24 00:00: 00:00 mouth 2 [place] hr capsule 00 :00 (two) Medical times Branch daily. losartan 50 2020-09- No [id number] 50mg Take 1 [facility] mg tablet 10-04 tablet by ity of 00:00: 00:00 mouth 2 [place] 00 :00 (two) Medical times Branch daily. diltiazem 2020-09- No [id number] 120mg Take 1 [facility] (CARTIA XT) 10-04 capsule by i ty of 120 mg 24 00:00: 00:00 mouth 2 [place] hr capsule 00 :00 (two) Medical times Branch daily. losartan 50 2020-09- No [id number] 50mg Take 1 [facility] mg tablet 10-04 tablet by ity of 00:00: 00:00 mouth 2 [place] 00 :00 (two) Medical times Branch daily. diltiazem 2020-09- No [id number] 120mg Take 1 [facility] (CARTIA XT) 10-04 capsule by i ty of 120 mg 24 00:00: 00:00 mouth 2 [place] hr capsule 00 :00 (two) Medical times Branch daily. losartan 50 2020-09- No [id number] 50mg Take 1 [facility] mg tablet 10-04 tablet by ity of 00:00: 00:00 mouth 2 [place] 00 :00 (two) Medical times Branch daily. diltiazem 2020-09- No [id number] 120mg Take 1 [facility] (CARTIA XT) 10-04 capsule by i ty of 120 mg 24 00:00: 00:00 mouth 2 [place] hr capsule 00 :00 (two) Medical times Branch daily. rosuvastati 2020-09- No [id number] 10mg Take 1 [facility] n 10 mg 10-04 tablet by ity of tablet 00:00: 00:00 mouth at [place] 00 :00 bedtime. Medical Branch rosuvastati 2020-09- No [id number] 10mg Take 1 [facility] n 10 mg 10-04 tablet by ity of tablet 00:00: 00:00 mouth at [place] 00 :00 bedtime. Medical Branch rosuvastati 2020-09- No [id number] 10mg Take 1 [facility] n 10 mg 10-04 tablet by ity of tablet 00:00: 00:00 mouth at [place] 00 :00 bedtime. Medical Branch rosuvastati 2020-09- No [id number] 10mg Take 1 [facility] n 10 mg 10-04 tablet by ity of tablet 00:00: 00:00 mouth at [place] 00 :00 bedtime. Medical Branch rosuvastati 2020-09- No [id number] 10mg Take 1 [facility] n 10 mg 10-04 tablet by ity of tablet 00:00: 00:00 mouth at [place] 00 :00 bedtime. Medical Branch rosuvastati 2020-09- No [id number] 10mg Take 1 [facility] n 10 mg 10-04 tablet by ity of tablet 00:00: 00:00 mouth at [place] 00 :00 bedtime. Medical Branch rosuvastati 2020-09- No [id number] 10mg Take 1 [facility] n 10 mg 10-04 tablet by ity of tablet 00:00: 00:00 mouth at [place] 00 :00 bedtime. Medical Branch rosuvastati 2020-09- No [id number] 10mg Take 1 [facility] n 10 mg 10-04 tablet by ity of tablet 00:00: 00:00 mouth at [place] 00 :00 bedtime. Medical Branch rosuvastati 2020-09- No [id number] 10mg Take 1 [facility] n 10 mg 10-04 tablet by ity of tablet 00:00: 00:00 mouth at [place] 00 :00 bedtime. Medical Branch rosuvastati 2020-09- No [id number] 10mg Take 1 [facility] n 10 mg 10-04 tablet by ity of tablet 00:00: 00:00 mouth at [place] 00 :00 bedtime. Medical Branch diclofenac 2020-09- No [id number] 75mg Take 1 [facility] 75 mg EC 10-04 tablet by ity o f tablet 00:00: 00:00 mouth 2 [place] 00 :00 (two) Medical times Branch daily with meals as needed for Pain. USE SPARINGLY DUE TO POSSIBLE SIDE EFFECTS. Insulin 2020-09- No [id number] Use as [facility] vers [place], 1-09 05-24 directed ity of Disposable, 00:00: 00:00 to inject [place] (PEN 00 :00 Ozempic Medical NEEDLE) 32 once Branch gauge x weekly /32" Ndle lancets 2020-09- No [id number] Use twice [facility] (ONE TOUCH 10-04 a day for ity of DELICA) 33 00:00: 00:00 ICD code [place] gauge Misc 00 :00 E11.65 Medical Branch diclofenac 2020-09- No [id number] 75mg Take 1 [facility] 75 mg EC 10-04 tablet by ity o f tablet 00:00: 00:00 mouth 2 [place] 00 :00 (two) Medical times Branch daily with meals as needed for Pain. USE SPARINGLY DUE TO POSSIBLE SIDE EFFECTS. Insulin 2020-09- No [id number] Use as [facility] vers [place], 10-04 directed ity of Disposable, 00:00: 00:00 to inject [place] (PEN 00 :00 Ozempic Medical NEEDLE) 32 once Branch gauge x weekly " Ndle lancets 2020-09- No [id number] Use twice [facility] (ONE TOUCH 10-04 a day for ity of DELICA) 33 00:00: 00:00 ICD code [place] gauge Misc 00 :00 E11.65 Medical Branch diclofenac 2020-09- No [id number] 75mg Take 1 [facility] 75 mg EC 10-04 tablet by ity o f tablet 00:00: 00:00 mouth 2 [place] 00 :00 (two) Medical times Branch daily with meals as needed for Pain. USE SPARINGLY DUE TO POSSIBLE SIDE EFFECTS. Insulin 2020-09- No [id number] Use as [facility] vers [place], 10-04 directed ity of Disposable, 00:00: 00:00 to inject [place] (PEN 00 :00 Ozempic Medical NEEDLE) 32 once Branch gauge x weekly /32" Ndle lancets 2020-09- No [id number] Use twice [facility] (ONE TOUCH 10-04 a day for ity of DELICA) 33 00:00: 00:00 ICD code [place] gauge Misc 00 :00 E11.65 Medical Branch diclofenac 2020-09- No [id number] 75mg Take 1 [facility] 75 mg EC 10-04 tablet by ity o f tablet 00:00: 00:00 mouth 2 [place] 00 :00 (two) Medical times Branch daily with meals as needed for Pain. USE SPARINGLY DUE TO POSSIBLE SIDE EFFECTS. Insulin 2020-09- No [id number] Use as [facility] vers [place], 10-04 directed ity of Disposable, 00:00: 00:00 to inject [place] (PEN 00 :00 Ozempic Medical NEEDLE) 32 once Branch gauge x weekly " Ndle lancets 2020-09- No [id number] Use twice [facility] (ONE TOUCH 10-04 a day for ity of DELICA) 33 00:00: 00:00 ICD code [place] gauge Misc 00 :00 E11.65 Medical Branch diclofenac 2020-09- No [id number] 75mg Take 1 [facility] 75 mg EC 10-04 tablet by ity o f tablet 00:00: 00:00 mouth 2 [place] 00 :00 (two) Medical times Branch daily with meals as needed for Pain. USE SPARINGLY DUE TO POSSIBLE SIDE EFFECTS. Insulin 2020-09- No [id number] Use as [facility] vers [place], 10-04 directed ity of Disposable, 00:00: 00:00 to inject [place] (PEN 00 :00 Ozempic Medical NEEDLE) 32 once Branch gauge x weekly " Ndle lancets 2020-09- No [id number] Use twice [facility] (ONE TOUCH 10-04 a day for ity of DELICA) 33 00:00: 00:00 ICD code [place] gauge Misc 00 :00 E11.65 Medical Branch diclofenac 2020-09- No [id number] 75mg Take 1 [facility] 75 mg EC 10-04 tablet by ity o f tablet 00:00: 00:00 mouth 2 [place] 00 :00 (two) Medical times Branch daily with meals as needed for Pain. USE SPARINGLY DUE TO POSSIBLE SIDE EFFECTS. Insulin 2020-09- No [id number] Use as [facility] vers [place], 10-04 directed ity of Disposable, 00:00: 00:00 to inject [place] (PEN 00 :00 Ozempic Medical NEEDLE) 32 once Branch gauge x weekly " Ndle lancets 2020-09- No [id number] Use twice [facility] (ONE TOUCH 10-04 a day for ity of DELICA) 33 00:00: 00:00 ICD code [place] gauge Misc 00 :00 E11.65 Medical Branch diclofenac 2020-09- No [id number] 75mg Take 1 [facility] 75 mg EC 10-04 tablet by ity o f tablet 00:00: 00:00 mouth 2 [place] 00 :00 (two) Medical times Branch daily with meals as needed for Pain. USE SPARINGLY DUE TO POSSIBLE SIDE EFFECTS. Insulin 2020-09- No [id number] Use as [facility] vers [place], 10-04 directed ity of Disposable, 00:00: 00:00 to inject [place] (PEN 00 :00 Ozempic Medical NEEDLE) 32 once Branch gauge x weekly " Ndle lancets 2020-09- No [id number] Use twice [facility] (ONE TOUCH 10-04 a day for ity of DELICA) 33 00:00: 00:00 ICD code [place] gauge Misc 00 :00 E11.65 Medical Branch pregabalin 2020-09- No [id number] 150mg Take 1 [facility] 150 mg 10-04 capsule by ity of capsule 00:00: 00:00 mouth 3 [place] 00 :00 (three) Medical times Branch daily. amitriptyli 2020-09- No [id number] 100mg Take 2 [facility] ne 50 mg 10-04 tablets by ity of tablet 00:00: 00:00 mouth at [place] 00 :00 bedtime. Medical Branch busPIRone 2020-09- No [id number] 20mg Take 2 [facility] nivers 10 mg 10-04 tablets by ity of tablet 00:00: 00:00 mouth 2 [place] 00 :00 (two) Medical times Branch daily. pregabalin 2020-09- No [id number] 150mg Take 1 [facility] 150 mg 10-04 capsule by ity of capsule 00:00: 00:00 mouth 3 [place] 00 :00 (three) Medical times Branch daily. amitriptyli 2020-09- No [id number] 100mg Take 2 [facility] ne 50 mg 10-04 tablets by ity of tablet 00:00: 00:00 mouth at [place] 00 :00 bedtime. Medical Branch busPIRone 2020-09- No [id number] 20mg Take 2 U nivers 10 mg 10-04 tablets by ity of tablet 00:00: 00:00 mouth 2 [place] 00 :00 (two) Medical times Branch daily. pregabalin 2020-09- No [id number] 150mg Take 1 [facility] 150 mg 10-04 capsule by ity of capsule 00:00: 00:00 mouth 3 [place] 00 :00 (three) Medical times Branch daily. amitriptyli 2020-09- No [id number] 100mg Take 2 [facility] ne 50 mg 10-04 tablets by ity of tablet 00:00: 00:00 mouth at [place] 00 :00 bedtime. Medical Branch busPIRone 2020-09- No [id number] 20mg Take 2 U nivers 10 mg 10-04 tablets by ity of tablet 00:00: 00:00 mouth 2 [place] 00 :00 (two) Medical times Branch daily. pregabalin 2020-09- No [id number] 150mg Take 1 [facility] 150 mg 10-04 capsule by ity of capsule 00:00: 00:00 mouth 3 [place] 00 :00 (three) Medical times Branch daily. amitriptyli 2020-09- No [id number] 100mg Take 2 [facility] ne 50 mg 10-04 tablets by ity of tablet 00:00: 00:00 mouth at [place] 00 :00 bedtime. Medical Branch busPIRone 2020-09- No [id number] 20mg Take 2 U nivers 10 mg 10-04 tablets by ity of tablet 00:00: 00:00 mouth 2 [place] 00 :00 (two) Medical times Branch daily. pregabalin 2020-09- No [id number] 150mg Take 1 [facility] 150 mg 10-04 capsule by ity of capsule 00:00: 00:00 mouth 3 [place] 00 :00 (three) Medical times Branch daily. amitriptyli 2020-09- No [id number] 100mg Take 2 [facility] ne 50 mg 10-04 tablets by ity of tablet 00:00: 00:00 mouth at [place] 00 :00 bedtime. Medical Branch busPIRone 2020-09- No [id number] 20mg Take 2 U nivers 10 mg 10-04 tablets by ity of tablet 00:00: 00:00 mouth 2 [place] 00 :00 (two) Medical times Branch daily. citalopram 2020-09- No [id number] 40mg Take 1 [facility] 40 mg 10-04 tablet by ity of tablet 00:00: 00:00 mouth [place] 00 :00 daily. Medical Branch citalopram 2020-09- No [id number] 40mg Take 1 [facility] 40 mg 10-04 tablet by ity of tablet 00:00: 00:00 mouth [place] 00 :00 daily. Medical Branch citalopram 2020-09- No [id number] 40mg Take 1 [facility] 40 mg 10-04 tablet by ity of tablet 00:00: 00:00 mouth [place] 00 :00 daily. Medical Branch citalopram 2020-09- No [id number] 40mg Take 1 [facility] 40 mg 10-04 tablet by ity of tablet 00:00: 00:00 mouth [place] 00 :00 daily. Medical Branch citalopram 2020-09- No [id number] 40mg Take 1 [facility] 40 mg 10-04 tablet by ity of tablet 00:00: 00:00 mouth [place] 00 :00 daily. Medical Branch mirabegron 2020-09- No [id number] 50mg Take 1 [facility] (MYRBETRIQ) 10-04 tablet by it y of 50 mg 00:00: 00:00 mouth [place] tablet 00 :00 daily. Medical Branch mirabegron 2020-09- No [id number] 50mg Take 1 [facility] (MYRBETRIQ) 10-04 tablet by it y of 50 mg 00:00: 00:00 mouth [place] tablet 00 :00 daily. Medical Branch blood sugar 2020-09- No [id number] Use twice [facility] diagnostic 1-09 02-08 a day for ity of (ONETOUCH 00:00: 00:00 ICD CODE [place] as VERIO TEST 00 :00 E11.65 Medical STRIPS) Branch strip blood sugar 2020-09- No [id number] Use twice [facility] diagnostic 10-0408 a day for ity of (ONETOUCH 00:00: 00:00 ICD CODE [place] as VERIO TEST 00 :00 E11.65 Medical STRIPS) Branch strip metFORMIN 2020-09- No [id number] 500mg Take 1 [facility] 500 mg 10-04 tablet by ity of tablet 00:00: 00:00 mouth 2 [place] 00 :00 (two) Medical times Branch daily with meals. semaglutide 2020-09- No [id number] Inject 0.5 [facility] (OZEMPIC) 10-04 mg under ity o f 0.25 mg or 00:00: 00:00 the skin [place] 0.5 mg(2 00 :00 weekly. Medical mg/1.5 mL) Branch PnIj METFORMIN 2020-09- No [id number] TAKE 1 U nivers 500 mg 08-04 TABLET BY ity of tablet 00:00: 00:00 MOUTH [place] 00 :00 TWICE Medical DAILY WITH Branch MEALS pregabalin 2020- No [id number] 150mg Take 1 [facility] 150 mg 05-19 capsule by ity of capsule 00:00: 00:00 mouth 3 [place] 00 :00 (three) Medical times Branch daily. methylPREDN 2020- No [id number] 84mg Take 21 [facility] ISolone 05-08 tablets by ity o f (MEDROL, 00:00: 00:00 mouth [place] ASHLEY,) 4 mg 00 :00 SEE-INSTRU Med ical tablets CTIONS. Branch follow package directions diclofenac 2020- No [id number] 75mg Take 1 U nivers 75 mg EC 04-29 tablet by ity o f tablet 00:00: 00:00 mouth 2 [place] 00 :00 (two) Medical times Branch daily with meals. AMITRIPTYLI 2020- No [id number] 100mg TAKE 2 [facility] NE 50 mg 04-29 TABLETS BY ity of tablet 00:00: 00:00 MOUTH AT [place] 00 :00 BEDTIME Medical Branch rosuvastati 2020- No 10mg Take 1 Uni vers n 10 mg 04-28 tablet by ity of tablet 00:00: 00:00 mouth at [place] 00 :00 bedtime. Medical Branch methylPREDN 2020- No [id number] Follow [facility] ISolone 4 04-21 package ity of mg tablets 00:00: 00:00 directions [place] 00 :00 Medical Branch naproxen 2020- No [id number] 375mg Take 1 [facility] 375 mg 04-07 tablet by ity of tablet 00:00: 00:00 mouth 2 [place] 00 :00 (two) Medical times Branch daily with meals. traMADoL 50 2020- No [id number] 50mg Take 1 Uni vers mg tablet 04-07 tablet by ity of 00:00: 00:00 mouth [place] 00 :00 every 6 Medical (six) Branch hours. Indication s: acute pain ibuprofen 2020- No [id number] 600mg Take 1 [facility] 600 mg 04-01 9103 tablet by ity of tablet 00:00: 00:00 mouth [place] 00 :00 every 8 Medical (eight) Branch hours as needed for Pain (scale 4-6). hydrOXYzine 2020- No [id number] 1-2 tabs [facility] 25 mg 03-28 Every 6hr ity of tablet 00:00: 00:00 as needed [place] 00 :00 for itch Medical or rash, Branch usual is 3 times a day. triamcinolo 2020- No [id number] Apply to [facility] ne 0.025 % 03-28 area(s) 3 ity of ointment 00:00: 00:00 (three) [place] 00 :00 times Medical daily. For Branch itching sulfamethox 2020- No [id number] 1{tbl} Take 1 [facility] azole-trime 03-27 [id number] tablet by ity of thoprim 00:00: 04:59 mouth 2 [place] (BACTRIM 00 :00 (two) Medical DS) 800-160 times Branch mg per daily for tablet 10 days. sulfamethox 2020- No [id number] 1{tbl} Take 1 [facility] azole-trime 03-27 [id number] tablet by ity of thoprim 00:00: 04:59 mouth 2 [place] (BACTRIM 00 :00 (two) Medical DS) 800-160 times Branch mg per daily for tablet 10 days. mirabegron 2020- No [id number] 50mg Take 1 [facility] (MYRBETRIQ) 03-25 tablet by it y of 50 mg 00:00: 00:00 mouth [place] tablet 00 :00 daily. Medical Branch mirabegron 2020- No [id number] 50mg Take 1 [facility] (MYRBETRIQ) 03-25 tablet by it y of 50 mg 00:00: 00:00 mouth [place] tablet 00 :00 daily. Medical Branch mirabegron 2020- No [id number] 50mg Take 1 [facility] (MYRBETRIQ) 03-25 tablet by it y of 50 mg 00:00: 00:00 mouth [place] tablet 00 :00 daily. Medical Branch mirabegron 2020- No [id number] 50mg Take 1 [facility] (MYRBETRIQ) 03-25 tablet by it y of 50 mg 00:00: 00:00 mouth [place] tablet 00 :00 daily. Medical Branch metFORMIN 2020- No [id number] 500mg Take 1 [facility] 500 mg 03-23 tablet by ity of tablet 00:00: 00:00 mouth 2 [place] 00 :00 (two) Medical times Branch daily with meals. metFORMIN 2020- No [id number] 500mg Take 1 [facility] 500 mg 03-23- tablet by ity of tablet 00:00: 00:00 mouth 2 [place] 00 :00 (two) Medical times Branch daily with meals. metFORMIN 2020- No [id number] 500mg Take 1 [facility] 500 mg 03-23- tablet by ity of tablet 00:00: 00:00 mouth 2 [place] 00 :00 (two) Medical times Branch daily with meals. diclofenac 2020- No [id number] 75mg Take 1 U nivers 75 mg EC 03-23 tablet by ity o f tablet 00:00: 00:00 mouth 2 [place] 00 :00 (two) Medical times Branch daily with meals. diclofenac 2020- No [id number] 75mg Take 1 U nivers 75 mg EC 03-23 tablet by ity o f tablet 00:00: 00:00 mouth 2 [place] 00 :00 (two) Medical times Branch daily with meals. diclofenac 2020- No [id number] 75mg Take 1 U nivers 75 mg EC 03-23 tablet by ity o f tablet 00:00: 00:00 mouth 2 [place] 00 :00 (two) Medical times Branch daily with meals. mirabegron 2020- No [id number] 50mg Take 1 [facility] (MYRBETRIQ) 03-13- tablet by it y of 50 mg 00:00: 00:00 mouth [place] tablet 00 :00 daily. Medical Branch diltiazem 2020- No [id number] 120mg Take 1 [facility] (CARTIA XT) 03-13 capsule by i ty of 120 mg 24 00:00: 00:00 mouth 2 [place] hr capsule 00 :00 (two) Medical times Branch daily. mirabegron 2020- No [id number] 50mg Take 1 [facility] (MYRBETRIQ) 03-13- tablet by it y of 50 mg 00:00: 00:00 mouth [place] tablet 00 :00 daily. Medical Branch diltiazem 2020- No [id number] 120mg Take 1 [facility] (CARTIA XT) 03-13 capsule by i ty of 120 mg 24 00:00: 00:00 mouth 2 [place] hr capsule 00 :00 (two) Medical times Branch daily. mirabegron 2020- No [id number] 50mg Take 1 [facility] (MYRBETRIQ) -13 08- tablet by it y of 50 mg 00:00: 00:00 mouth [place] tablet 00 :00 daily. Medical Branch diltiazem 2020- No [id number] 120mg Take 1 [facility] (CARTIA XT) -18 - capsule by i ty of 120 mg 24 00:00: 00:00 mouth 2 [place] hr capsule 00 :00 (two) Medical times Branch daily. mirabegron 2020- No [id number] 50mg Take 1 [facility] (MYRBETRIQ) 6-18 11-09 tablet by it y of 50 mg 00:00: 00:00 mouth [place] tablet 00 :00 daily. Medical Branch diltiazem 2020- No [id number] 120mg Take 1 [facility] (CARTIA XT) 6-18 11-09 capsule by i ty of 120 mg 24 00:00: 00:00 mouth 2 [place] hr capsule 00 :00 (two) Medical times Branch daily. mirabegron 2020- No [id number] 50mg Take 1 [facility] (MYRBETRIQ) 6-18 11-09 tablet by it y of 50 mg 00:00: 00:00 mouth [place] tablet 00 :00 daily. Medical Branch diltiazem 2020- No [id number] 120mg Take 1 [facility] (CARTIA XT) 6-18 11-09 capsule by i ty of 120 mg 24 00:00: 00:00 mouth 2 [place] hr capsule 00 :00 (two) Medical times Branch daily. busPIRone No [id number] 20mg Take 2 U nivers 10 mg 6-16 11-09 tablets by ity of tablet 00:00: 00:00 mouth 2 [place] 00 :00 (two) Medical times Branch daily. busPIRone No [id number] 20mg Take 2 U nivers 10 mg 6-16 11-09 tablets by ity of tablet 00:00: 00:00 mouth 2 [place] 00 :00 (two) Medical times Branch daily. busPIRone 2020- No [id number] 20mg Take 2 U nivers 10 mg 6-16 11-09 tablets by ity of tablet 00:00: 00:00 mouth 2 [place] 00 :00 (two) Medical times Branch daily. busPIRone 2020- No [id number] 20mg Take 2 U nivers 10 mg 6-16 11-09 tablets by ity of tablet 00:00: 00:00 mouth 2 [place] 00 :00 (two) Medical times Branch daily. busPIRone 2020- No [id number] 20mg Take 2 U nivers 10 mg 6-16 11-09 tablets by ity of tablet 00:00: 00:00 mouth 2 [place] 00 :00 (two) Medical times Branch daily. Nitrofurant 2020- No [id number] 100mg Take 1 [facility] oin&Nit. 6-15 08-04 capsule by ity of Macrocryst 00:00: 00:00 mouth 2 [place] (MACROBID) 00 :00 (two) Medical 100 mg times Branch capsule daily. Nitrofurant 2020- No [id number] 100mg Take 1 [facility] oin&Nit. 6-15 08-04 capsule by ity of Macrocryst 00:00: 00:00 mouth 2 [place] (MACROBID) 00 :00 (two) Medical 100 mg times Branch capsule daily. Nitrofurant 2020- No [id number] 100mg Take 1 [facility] oin&Nit. 6-15 08-04 capsule by ity of Macrocryst 00:00: 00:00 mouth 2 [place] (MACROBID) 00 :00 (two) Medical 100 mg times Branch capsule daily. Nitrofurant 2020- No [id number] 100mg Take 1 [facility] oin&Nit. 6-15 08-04 capsule by ity of Macrocryst 00:00: 00:00 mouth 2 [place] (MACROBID) 00 :00 (two) Medical 100 mg times Branch capsule daily. Nitrofurant 2020- No [id number] 100mg Take 1 [facility] oin&Nit. 6-15 08-04 capsule by ity of Macrocryst 00:00: 00:00 mouth 2 [place] (MACROBID) 00 :00 (two) Medical 100 mg times Branch capsule daily. Blood-Gluco 2021- No [id number] Use twice Univers se Meter 6-14 03-08 a day for ity o f (ONETOUCH 00:00: 00:00 ICD CODE [place] VERIO FLEX 00 :00 E11.65 Medical START) Kit Branch Blood-Gluco 2021- No [id number] Use twice Univers se Meter 6-14 03-08 a day for ity o f (ONETOUCH 00:00: 00:00 ICD CODE [place] VERIO FLEX 00 :00 E11.65 Medical START) Kit Branch Blood-Gluco 2021- No [id number] Use twice Univers se Meter 6-14 03-08 a day for ity o f (ONETOUCH 00:00: 00:00 ICD CODE [place] VERIO FLEX 00 : HOLIDAY) [facility] Blood-Gluco 2021- No [id number] Use twice Univers se Meter 6-14 03-08 a day for ity o f (ONETOUCH 00:00: 00:00 ICD CODE [place] VERIO FLEX 00 :00 HOLIDAY) [facility] Blood-Gluco 2021- No [id number] Use twice Univers se Meter 6-14 03-08 a day for ity o f (ONETOUCH 00:00: 00:00 ICD CODE [place] VERIO FLEX 00 :00 HOLIDAY) [facility] Blood-Gluco 2021- No [id number] Use twice Univers se Meter 6-14 03-08 a day for ity o f (ONETOUCH 00:00: 00:00 ICD CODE [place] VERIO FLEX 00 :00 HOLIDAY) [facility] Blood-Gluco 2021- No [id number] Use twice Univers se Meter 6-14 03-08 a day for ity o f (ONETOUCH 00:00: 00:00 ICD CODE [place] VERIO FLEX 00 :00 HOLIDAY) [facility] Blood-Gluco 2021- No [id number] Use twice Univers se Meter 6-14 03-08 a day for ity o f (ONETOUCH 00:00: 00:00 ICD CODE [place] VERIO FLEX 00 :00 HOLIDAY) [facility] Lancing 2021- No [id number] To use Uni vers Device with 6-14 02-08 twice a ity of Lancets 00:00: 00:00 day for [place] (ONE TOUCH 00 :00 ICD code Medic al DELICA) Kit E11. Branch Lancing 2021- No [id number] To use Uni vers Device with 6-14 02-08 twice a ity of Lancets 00:00: 00:00 day for [place] (ONE TOUCH 00 :00 ICD code Medic al DELICA) Kit E11. Branch Lancing 2021- No [id number] To use Uni vers Device with 6-14 02-08 twice a ity of Lancets 00:00: 00:00 day for [place] (ONE TOUCH 00 :00 ICD code Medic al DELICA) Kit E11.65 Branch Lancing 2021- No [id number] To use Uni vers Device with 6-14 02-08 twice a ity of Lancets 00:00: 00:00 day for [place] (ONE TOUCH 00 :00 ICD code Medic al DELICA) Kit E11.65 Branch Lancing 2021- No [id number] To use Uni vers Device with 6-14 02-08 twice a ity of Lancets 00:00: 00:00 day for [place] (ONE TOUCH 00 :00 ICD code Medic al DELICA) Kit E11.65 Branch Lancing 2021- No [id number] To use Uni vers Device with 6-14 02-08 twice a ity of Lancets 00:00: 00:00 day for [place] (ONE TOUCH 00 :00 ICD code Medic al DELICA) Kit E11.65 Branch Lancing No [id number] To use Uni vers Device with 6-14 02-08 twice a ity of Lancets 00:00: 00:00 day for [place] (ONE TOUCH 00 :00 ICD code Medic al DELICA) Kit E11.65 Branch blood sugar No [id number] Use twice Univers diagnostic 6-14 09 a day for ity of (ONETOUCH 00:00: 00:00 ICD CODE [place] VERIO TEST 00 :00 E11.65 Medical STRIPS) Branch strip lancets No [id number] Use twice Univers (ONE TOUCH 6-14 09 a day for ity of DELICA) 33 00:00: 00:00 ICD code [place] gauge Misc 00 :00 E11.65 Medical Branch blood sugar 2020- No [id number] Use twice [facility] diagnostic 6-14 09 a day for ity of (ONETOUCH 00:00: 00:00 ICD CODE [place] VERIO TEST 00 :00 E11.65 Medical STRIPS) Branch strip lancets 2020- No [id number] Use twice [facility] (ONE TOUCH 6-14 11-09 a day for ity of DELICA) 33 00:00: 00:00 ICD code [place] gauge Misc 00 :00 E11.65 Medical Branch blood sugar 2020- No [id number] Use twice [facility] diagnostic 6-14 08-04 a day for ity of (ONETOUCH 00:00: 00:00 ICD CODE [place] VERIO TEST 00 :00 E11.65 Medical STRIPS) Branch strip lancets 2020- No [id number] Use twice [facility] (ONE TOUCH 6-14 08-04 a day for ity of DELICA) 33 00:00: 00:00 ICD code [place] gauge Misc 00 :00 E11.65 Medical Branch blood sugar 2020- No [id number] Use twice [facility] diagnostic 6-14 08-04 a day for ity of (ONETOUCH 00:00: 00:00 ICD CODE [place] VERIO TEST 00 :00 E11.65 Medical STRIPS) Branch strip lancets 2020- No [id number] Use twice Univers (ONE TOUCH -14 08-04 a day for ity of DELICA) 33 00:00: 00:00 ICD code [place] gauge Misc 00 :00 E11.65 Medical Branch blood sugar 2020- No [id number] Use twice Univers diagnostic 6-14 08-04 a day for ity of (ONETOUCH 00:00: 00:00 ICD CODE [place] VERIO TEST 00 :00 E11.65 Medical STRIPS) Branch strip lancets 2020- No [id number] Use twice Univers (ONE TOUCH -14 08-04 a day for ity of DELICA) 33 00:00: 00:00 ICD code [place] gauge Misc 00 :00 E11.65 Medical Branch LEVOTHYROXI 2020- No [id number] TAKE 1 [facility] NE 50 mcg 02-24 TABLET BY ity of tablet 00:00: 00:00 MOUTH ONCE [place] 00 :00 DAILY IN Medical THE Branch MORNING semaglutide 2020- No [id number] .5mg inject 0.5 Univers (OZEMPIC) 02-24 mg under ity o f 0.25 mg or 00:00: 00:00 the skin [place] 0.5 mg(2 00 :00 weekly. Medical mg/1.5 mL) Branch PnIj cyanocobala 2020- No [id number] 1000ug 1 mL by Univers min 1,000 02-24 Intramuscu ity of mcg/mL 00:00: 00:00 lar route [place] injection 00 :00 every 2 Medical (two) Branch weeks. Insulin 2020- No [id number] Use as Uni vers [place], 02-24 directed ity of Disposable, 00:00: 00:00 to inject [place] (PEN 00 :00 Ozempic Medical NEEDLE) 32 once Branch gauge x weekly " Ndle LEVOTHYROXI 2020- No [id number] TAKE 1 [facility] NE 50 mcg 02-24 TABLET BY ity of tablet 00:00: 00:00 MOUTH ONCE [place] 00 :00 DAILY IN Medical THE Branch MORNING semaglutide 2020- No [id number] .5mg inject 0.5 Univers (OZEMPIC) 02-24 mg under ity o f 0.25 mg or 00:00: 00:00 the skin [place] 0.5 mg(2 00 :00 weekly. Medical mg/1.5 mL) Branch PnIj cyanocobala 2020- No [id number] 1000ug 1 mL by Univers min 1,000 02-24 Intramuscu ity of mcg/mL 00:00: 00:00 lar route [place] injection 00 :00 every 2 Medical (two) Branch weeks. Insulin 2020- No [id number] Use as Uni vers [place], 02-24 directed ity of Disposable, 00:00: 00:00 to inject [place] (PEN 00 :00 Ozempic Medical NEEDLE) 32 once Branch gauge x weekly " Ndle LEVOTHYROXI 2020- No [id number] TAKE 1 [facility] NE 50 mcg 02-24 TABLET BY ity of tablet 00:00: 00:00 MOUTH ONCE [place] 00 :00 DAILY IN Medical THE Branch MORNING semaglutide 2020- No [id number] .5mg inject 0.5 Univers (OZEMPIC) 02-24 mg under ity o f 0.25 mg or 00:00: 00:00 the skin [place] 0.5 mg(2 00 :00 weekly. Medical mg/1.5 mL) Branch PnIj cyanocobala No [id number] 1000ug 1 mL by Univers min 1,000 02-24 Intramuscu ity of mcg/mL 00:00: 00:00 lar route [place] injection 00 :00 every 2 Medical (two) Branch weeks. Insulin 2020- No [id number] Use as Uni vers [place], 02-24 directed ity of Disposable, 00:00: 00:00 to inject [place] (PEN 00 :00 Ozempic Medical NEEDLE) 32 once Branch gauge x weekly " Ndle LEVOTHYROXI 2020- No [id number] TAKE 1 [facility] NE 50 mcg 02-24 TABLET BY ity of tablet 00:00: 00:00 MOUTH ONCE [place] 00 :00 DAILY IN Medical THE Branch MORNING semaglutide 2020- No [id number] .5mg inject 0.5 Univers (OZEMPIC) 02-24 mg under ity o f 0.25 mg or 00:00: 00:00 the skin [place] 0.5 mg(2 00 :00 weekly. Medical mg/1.5 mL) Branch PnIj cyanocobala 2020- No [id number] 1000ug 1 mL by Univers min 1,000 02-24 Intramuscu ity of mcg/mL 00:00: 00:00 lar route [place] injection 00 :00 every 2 Medical (two) Branch weeks. Insulin 2020- No [id number] Use as Uni vers [place], 02-24 directed ity of Disposable, 00:00: 00:00 to inject [place] (PEN 00 :00 Ozempic Medical NEEDLE) 32 once Branch gauge x weekly " Ndle LEVOTHYROXI 2020- No [id number] TAKE 1 [facility] NE 50 mcg 02-24 TABLET BY ity of tablet 00:00: 00:00 MOUTH ONCE [place] 00 :00 DAILY IN Medical THE Branch MORNING semaglutide 2020- No [id number] .5mg inject 0.5 Univers (OZEMPIC) 02-24 mg under ity o f 0.25 mg or 00:00: 00:00 the skin [place] 0.5 mg(2 00 :00 weekly. Medical mg/1.5 mL) Branch PnIj cyanocobala 2020- No [id number] 1000ug 1 mL by Univers min 1,000 02-24 Intramuscu ity of mcg/mL 00:00: 00:00 lar route [place] injection 00 :00 every 2 Medical (two) Branch weeks. Insulin 2020- No [id number] Use as Uni vers [place], 02-24 directed ity of Disposable, 00:00: 00:00 to inject [place] (PEN 00 :00 Ozempic Medical NEEDLE) 32 once Branch gauge x weekly " Ndle LEVOTHYROXI 2020- No [id number] TAKE 1 [facility] NE 50 mcg 02-24 TABLET BY ity of tablet 00:00: 00:00 MOUTH ONCE [place] 00 :00 DAILY IN Medical THE Branch MORNING semaglutide 2020- No [id number] .5mg inject 0.5 Univers (OZEMPIC) 02-24 mg under ity o f 0.25 mg or 00:00: 00:00 the skin [place] 0.5 mg(2 00 :00 weekly. Medical mg/1.5 mL) Branch PnIj cyanocobala 2020- No [id number] 1000ug 1 mL by Univers min 1,000 02-24 Intramuscu ity of mcg/mL 00:00: 00:00 lar route [place] injection 00 :00 every 2 Medical (two) Branch weeks. Insulin 2020- No [id number] Use as Uni vers [place], 02-24 directed ity of Disposable, 00:00: 00:00 to inject [place] (PEN 00 :00 Ozempic Medical NEEDLE) 32 once Branch gauge x weekly " Ndle mirabegron 2020- No [id number] 50mg Take 1 Univers (MYRBETRIQ) 02-24 tablet by it y of 50 mg 00:00: 00:00 mouth [place] tablet 00 :00 daily. Medical Branch Nitrofurant 2020- No [id number] 100mg Take 1 [facility] oin&Nit. 5-18 06-15 capsule by ity of Macrocryst 00:00: 00:00 mouth 2 [place] (MACROBID) 00 :00 (two) Medical 100 mg times Branch capsule daily with meals. fluticasone 2020- No [id number] 2{puff} Inhale 2 Univers propionate 5-11 11-09 Puffs ity of (FLOVENT 00:00: 00:00 every 12 [place] HFA) 110 00 :00 (twelve) Medical mcg/actuati hours. Branch on inhaler Rinse mouth after each use. levalbutero 2020- No [id number] .63mg Inhale Univers l 0.63 mg/3 5- 11-09 0.63 mg 3 it y of mL 00:00: 00:00 (three) [place] nebulizer 00 :00 times Medical solution daily as Branch needed for Wheezing or Shortness of Breath. fluticasone 2020- No [id number] 2{puff} Inhale 2 [facility] propionate 5-11 11-09 Puffs ity of (FLOVENT 00:00: 00:00 every 12 [place] HFA) 110 00 :00 (twelve) Medical mcg/actuati hours. Branch on inhaler Rinse mouth after each use. levalbutero 2020- No [id number] .63mg Inhale Univers l 0.63 mg/3 5- 11-09 0.63 mg 3 it y of mL 00:00: 00:00 (three) [place] nebulizer 00 :00 times Medical solution daily as Branch needed for Wheezing or Shortness of Breath. fluticasone 2020- No [id number] 2{puff} Inhale 2 [facility] propionate 5-11 11-09 Puffs ity of (FLOVENT 00:00: 00:00 every 12 [place] HFA) 110 00 :00 (twelve) Medical mcg/actuati hours. Branch on inhaler Rinse mouth after each use. levalbutero 2020- No [id number] .63mg Inhale Univers l 0.63 mg/3 5-11 11-09 0.63 mg 3 it y of mL 00:00: 00:00 (three) [place] nebulizer 00 :00 times Medical solution daily as Branch needed for Wheezing or Shortness of Breath. fluticasone 2020- No [id number] 2{puff} Inhale 2 [facility] propionate 5-11 11-09 Puffs ity of (FLOVENT 00:00: 00:00 every 12 [place] HFA) 110 00 :00 (twelve) Medical mcg/actuati hours. Branch on inhaler Rinse mouth after each use. levalbutero 2020- No [id number] .63mg Inhale Univers l 0.63 mg/3 5- 11-09 0.63 mg 3 it y of mL 00:00: 00:00 (three) [place] nebulizer 00 :00 times Medical solution daily as Branch needed for Wheezing or Shortness of Breath. fluticasone 2020- No [id number] 2{puff} Inhale 2 [facility] propionate 5- 11-09 Puffs ity of (FLOVENT 00:00: 00:00 every 12 [place] HFA) 110 00 :00 (twelve) Medical mcg/actuati hours. Branch on inhaler Rinse mouth after each use. levalbutero 2020- No [id number] .63mg Inhale Univers l 0.63 mg/3 5- 11-09 0.63 mg 3 it y of mL 00:00: 00:00 (three) [place] nebulizer 00 :00 times Medical solution daily as Branch needed for Wheezing or Shortness of Breath. fluticasone 2020- No [id number] 2{puff} Inhale 2 [facility] propionate 5- 11-09 Puffs ity of (FLOVENT 00:00: 00:00 every 12 [place] HFA) 110 00 :00 (twelve) Medical mcg/actuati hours. Branch on inhaler Rinse mouth after each use. levalbutero 2020- No [id number] .63mg Inhale Univers l 0.63 mg/3 5-11 11-09 0.63 mg 3 it y of mL 00:00: 00:00 (three) [place] nebulizer 00 :00 times Medical solution daily as Branch needed for Wheezing or Shortness of Breath. metFORMIN 2020-0 2020- No [id number] 500mg Take 1 [facility] 500 mg 01-28 tablet by ity of tablet 00:00: 00:00 mouth 2 [place] 00 :00 (two) Medical times Branch daily with meals. metFORMIN 2020-0 2020- No [id number] 500mg Take 1 [facility] 500 mg 01-28 tablet by ity of tablet 00:00: 00:00 mouth 2 [place] 00 :00 (two) Medical times Branch daily with meals. metFORMIN 2020-0 2020- No [id number] 500mg Take 1 [facility] 500 mg 01-28 tablet by ity of tablet 00:00: 00:00 mouth 2 [place] 00 :00 (two) Medical times Branch daily with meals. LUTEIN ORAL 2020-0 2020- No Take by Un [place] 01-23 mouth. ity of 13:07: 00:00 [place] 06 :00 Medical Branch LUTEIN ORAL 2020-0 2020- No Take by Un [place] 01-23 mouth. ity of 13:07: 00:00 [place] 06 :00 Medical Branch LUTEIN ORAL 2020-0 2020- No Take by Un [place] 01-2325 mouth. ity of 13:07: 00:00 06 :00 Medical Branch LUTEIN ORAL 2020-0 2020- No Take by Un [place] 01-23 mouth. ity of 13:07: 00:00 06 :00 Medical Branch LUTEIN ORAL 202-0 2020- No Take by Un [place] 01-2325 mouth. ity of 13:07: 00:00 [place] 06 :00 Medical Branch LUTEIN ORAL 202-0 202- No Take by Un [place] 01-2325 mouth. ity of 13:07: 00:00 06 :00 Medical Branch LUTEIN ORAL 2020-0 2020- No Take by Un [place] 30 25 mouth. ity of 13:07: 00:00 [place] 06 :00 Medical Branch diclofenac 2020-0 2020- No 75mg Take 1 Univ ers 75 mg EC 01-23 tablet by ity o f tablet 00:00: 00:00 mouth 2 [place] 00 :00 (two) Medical times Branch daily with meals. diclofenac 2020- No 75mg Take 1 Univ ers 75 mg EC 01-23 tablet by ity o f tablet 00:00: 00:00 mouth 2 [place] 00 :00 (two) Medical times Branch daily with meals. diclofenac 2020- No 75mg Take 1 Univ ers 75 mg EC 01-23 tablet by ity o f tablet 00:00: 00:00 mouth 2 [place] 00 :00 (two) Medical times Branch daily with meals. diclofenac 2020- No 75mg Take 1 Univ ers 75 mg EC 01-23 tablet by ity o f tablet 00:00: 00:00 mouth 2 [place] 00 :00 (two) Medical times Branch daily with meals. losartan 50 2020- No [id number] 50mg Take 1 [facility] mg tablet 01-21 tablet by ity of 00:00: 00:00 mouth 2 [place] 00 :00 (two) Medical times Branch daily. losartan 50 2020- No [id number] 50mg Take 1 [facility] mg tablet 01-21 tablet by ity of 00:00: 00:00 mouth 2 [place] 00 :00 (two) Medical times Branch daily. losartan 50 2020- No [id number] 50mg Take 1 [facility] mg tablet 01-21 tablet by ity of 00:00: 00:00 mouth 2 [place] 00 :00 (two) Medical times Branch daily. losartan 50 2020-2020- No [id number] 50mg Take 1 [facility] mg tablet 01-21 tablet by ity of 00:00: 00:00 mouth 2 [place] 00 :00 (two) Medical times Branch daily. losartan 50 2020- No [id number] 50mg Take 1 [facility] mg tablet 01-21 tablet by ity of 00:00: 00:00 mouth 2 [place] 00 :00 (two) Medical times Branch daily. losartan 50 2020-2020- No [id number] 50mg Take 1 [facility] mg tablet 01-21 tablet by ity of 00:00: 00:00 mouth 2 [place] 00 :00 (two) Medical times Branch daily. losartan 50 2020- No [id number] 50mg Take 1 [facility] mg tablet 01-21 tablet by ity of 00:00: 00:00 mouth 2 [place] 00 :00 (two) Medical times Branch daily. losartan 50 No [id number] 50mg Take 1 [facility] mg tablet 01-21 tablet by ity of 00:00: 00:00 mouth 2 [place] 00 :00 (two) Medical times Branch daily. rosuvastati 2020- No 10mg Take 1 Uni vers n 10 mg 01-21 tablet by ity of tablet 00:00: 00:00 mouth at [place] 00 :00 bedtime. Medical Branch rosuvastati 2020- No 10mg Take 1 Uni vers n 10 mg 01-21 tablet by ity of tablet 00:00: 00:00 mouth at [place] 00 :00 bedtime. Medical Branch rosuvastati 2020- No 10mg Take 1 Uni vers n 10 mg 01-21 tablet by ity of tablet 00:00: 00:00 mouth at [place] 00 :00 bedtime. Medical Branch rosuvastati 2020- No 10mg Take 1 Uni vers n 10 mg 01-21 tablet by ity of tablet 00:00: 00:00 mouth at [place] 00 :00 bedtime. Medical Branch rosuvastati 2020- No 10mg Take 1 Uni vers n 10 mg 01-21 tablet by ity of tablet 00:00: 00:00 mouth at [place] 00 :00 bedtime. Medical Branch rosuvastati 2020- No 10mg Take 1 Uni vers n 10 mg 01-21 tablet by ity of tablet 00:00: 00:00 mouth at [place] 00 :00 bedtime. Medical Branch rosuvastati 2020- No 10mg Take 1 Uni vers n 10 mg 01-21 tablet by ity of tablet 00:00: 00:00 mouth at [place] 00 :00 bedtime. Medical Branch diltiazem No [id number] 120mg Take 1 [facility] (CARTIA XT) 01-21 06-15 capsule by i ty of 120 mg 24 00:00: 00:00 mouth 2 [place] hr capsule 00 :00 (two) Medical times [place] daily for 90 days. diltiazem 2020- No [id number] 120mg Take 1 [facility] (CARTIA XT) 01-21-15 capsule by i ty of 120 mg 24 00:00: 00:00 mouth 2 [place] hr capsule 00 :00 (two) Medical times [place] daily for 90 days. diltiazem 2020- No [id number] 120mg Take 1 [facility] (CARTIA XT) 01-21-15 capsule by i ty of 120 mg 24 00:00: 00:00 mouth 2 [place] hr capsule 00 :00 (two) Medical times [place] daily for 90 days. clotrimazol 2020- No [id number] Apply to [facility] e-betametha 01-14 area(s) 2 it y of sone cream 00:00: 00:00 (two) [place] 00 :00 times Medical daily. Branch clotrimazol 2020- No [id number] Apply to [facility] e-betametha 01-14 area(s) 2 it y of sone cream 00:00: 00:00 (two) [place] 00 :00 times Medical daily. Branch clotrimazol 2020- No [id number] Apply to [facility] e-betametha 01-14 area(s) 2 it y of sone cream 00:00: 00:00 (two) [place] 00 :00 times Medical daily. Branch clotrimazol 2020- No [id number] Apply to [facility] e-betametha 01-14 area(s) 2 it y of sone cream 00:00: 00:00 (two) [place] 00 :00 times Medical daily. Branch clotrimazol 2020- No [id number] Apply to [facility] e-betametha 01-14 area(s) 2 it y of sone cream 00:00: 00:00 (two) [place] 00 :00 times Medical daily. Branch clotrimazol 2020- No [id number] Apply to [facility] e-betametha 01-14 area(s) 2 it y of sone cream 00:00: 00:00 (two) [place] 00 :00 times Medical daily. Branch clotrimazol 2020- No [id number] Apply to [facility] e-betametha 01-14 area(s) 2 it y of sone cream 00:00: 00:00 (two) [place] 00 :00 times Medical daily. Branch clotrimazol 2020- No [id number] Apply to [facility] e-betametha 01-14 area(s) 2 it y of sone cream 00:00: 00:00 (two) [place] 00 :00 times Medical daily. Branch ibuprofen 2020- No [id number] 600mg Take 1 [facility] 600 mg 01-04 tablet by ity of tablet 00:00: 00:00 mouth [place] 00 :00 every 6 Medical (six) Branch hours as needed for Pain (scale 4-6). ibuprofen 2020-2020- No [id number] 600mg Take 1 [facility] 600 mg 01-04 tablet by ity of tablet 00:00: 00:00 mouth [place] 00 :00 every 6 Medical (six) Branch hours as needed for Pain (scale 4-6). ibuprofen 2020-2020- No [id number] 600mg Take 1 [facility] 600 mg 01-04- tablet by ity of tablet 00:00: 00:00 mouth [place] 00 :00 every 6 Medical (six) Branch hours as needed for Pain (scale 4-6). ibuprofen 2020-2020- No [id number] 600mg Take 1 [facility] 600 mg 01-04- tablet by ity of tablet 00:00: 00:00 mouth [place] 00 :00 every 6 Medical (six) Branch hours as needed for Pain (scale 4-6). ibuprofen 2020-0 1- No [id number] 600mg Take 1 [facility] 600 mg -08 06- tablet by ity of tablet 00:00: 00:00 mouth [place] 00 :00 every 6 Medical (six) Branch hours as needed for Pain (scale 4-6). ibuprofen 2020-0 1- No [id number] 600mg Take 1 [facility] 600 mg 4- 11-09 tablet by ity of tablet 00:00: 00:00 mouth [place] 00 :00 every 6 Medical (six) Branch hours as needed for Pain (scale 4-6). ibuprofen 2020- No [id number] 600mg Take 1 [facility] 600 mg -08 06- tablet by ity of tablet 00:00: 00:00 mouth [place] 00 :00 every 6 Medical (six) Branch hours as needed for Pain (scale 4-6). ibuprofen 2020- No [id number] 600mg Take 1 [facility] 600 mg -08 06- tablet by ity of tablet 00:00: 00:00 mouth [place] 00 :00 every 6 Medical (six) Branch hours as needed for Pain (scale 4-6). cyclobenzap 2020- No [id number] TAKE 1 [facility] rine 5 mg 3-16 11-09 TABLET BY ity of tablet 00:00: 00:00 MOUTH [place] 00 :00 EVERY 8 Medical HOURS Branch NEEDED cyclobenzap 2020- No [id number] TAKE 1 [facility] rine 5 mg 3-16 11-09 TABLET BY ity of tablet 00:00: 00:00 MOUTH [place] 00 :00 EVERY 8 Medical HOURS Branch NEEDED cyclobenzap 2020- No [id number] TAKE 1 [facility] rine 5 mg 3-16 11-09 TABLET BY ity of tablet 00:00: 00:00 MOUTH [place] 00 :00 EVERY 8 Medical HOURS Branch NEEDED cyclobenzap 2020-2020- No [id number] TAKE 1 [facility] rine 5 mg 3-16 11-09 TABLET BY ity of tablet 00:00: 00:00 MOUTH [place] 00 :00 EVERY 8 Medical HOURS Branch NEEDED cyclobenzap 2020- No [id number] TAKE 1 [facility] rine 5 mg 3-16 11-09 TABLET BY ity of tablet 00:00: 00:00 MOUTH [place] 00 :00 EVERY 8 Medical HOURS Branch NEEDED cyclobenzap 2020-2020- No [id number] TAKE 1 [facility] rine 5 mg 3-16 11-09 TABLET BY ity of tablet 00:00: 00:00 MOUTH [place] 00 :00 EVERY 8 Medical HOURS Branch NEEDED cyclobenzap 2020-2020- No [id number] TAKE 1 [facility] rine 5 mg 3-16 11-09 TABLET BY ity of tablet 00:00: 00:00 MOUTH [place] 00 :00 EVERY 8 Medical HOURS Branch NEEDED cyclobenzap 2020- No [id number] TAKE 1 [facility] rine 5 mg 3-16 -09 TABLET BY ity of tablet 00:00: 00:00 MOUTH [place] 00 :00 EVERY 8 Medical HOURS Branch NEEDED pregabalin 2020- No [id number] 150mg Take 1 [facility] 150 mg 2-12 08-24 capsule by ity of capsule 00:00: 00:00 mouth 3 [place] 00 :00 (three) Medical times Branch daily. pregabalin 2020- No [id number] 150mg Take 1 [facility] 150 mg 2-12 08-24 capsule by ity of capsule 00:00: 00:00 mouth 3 [place] 00 :00 (three) Medical times Branch daily. pregabalin 2020- No [id number] 150mg Take 1 [facility] 150 mg 2-12 08-24 capsule by ity of capsule 00:00: 00:00 mouth 3 [place] 00 :00 (three) Medical times Branch daily. pregabalin 2020- No [id number] 150mg Take 1 [facility] 150 mg 2-12 08-24 capsule by ity of capsule 00:00: 00:00 mouth 3 [place] 00 :00 (three) Medical times Branch daily. pregabalin 2020-2020- No [id number] 150mg Take 1 [facility] 150 mg 2-12 08-24 capsule by ity of capsule 00:00: 00:00 mouth 3 [place] 00 :00 (three) Medical times Branch daily. pregabalin 2020- No [id number] 150mg Take 1 [facility] 150 mg 2-12 08-24 capsule by ity of capsule 00:00: 00:00 mouth 3 [place] 00 :00 (three) Medical times Branch daily. pregabalin 2020-2020- No [id number] 150mg Take 1 [facility] 150 mg 2-12 08-24 capsule by ity of capsule 00:00: 00:00 mouth 3 [place] 00 :00 (three) Medical times Branch daily. pregabalin 2020- No [id number] 150mg Take 1 [facility] 150 mg 2-12 08-24 capsule by ity of capsule 00:00: 00:00 mouth 3 [place] 00 :00 (three) Medical times Branch daily. pregabalin 2020- No [id number] 150mg Take 1 [facility] 150 mg 11-07 capsule by ity of capsule 00:00: 00:00 mouth 3 [place] 00 :00 (three) Medical times Branch daily. amitriptyli 2020- No [id number] 50mg Take 1 [facility] ne 50 mg 11-07- tablet by ity o f tablet 00:00: 00:00 mouth at [place] 00 :00 bedtime. Medical Branch amitriptyli 2020- No [id number] 50mg Take 1 [facility] ne 50 mg 11-07- tablet by ity o f tablet 00:00: 00:00 mouth at [place] 00 :00 bedtime. Medical Branch amitriptyli 2020- No [id number] 50mg Take 1 [facility] ne 50 mg 11-07- tablet by ity o f tablet 00:00: 00:00 mouth at [place] 00 :00 bedtime. Medical Branch amitriptyli 2020- No [id number] 50mg Take 1 [facility] ne 50 mg -09 01- tablet by ity o f tablet 00:00: 00:00 mouth at [place] 00 :00 bedtime. Medical Branch amitriptyli 2020- No [id number] 50mg Take 1 [facility] ne 50 mg 11-07- tablet by ity o f tablet 00:00: 00:00 mouth at [place] 00 :00 bedtime. Medical Branch amitriptyli 2020- No [id number] 50mg Take 1 [facility] ne 50 mg 11-07- tablet by ity o f tablet 00:00: 00:00 mouth at [place] 00 :00 bedtime. Medical Branch amitriptyli 2020- No [id number] 50mg Take 1 [facility] ne 50 mg -09 01- tablet by ity o f tablet 00:00: 00:00 mouth at [place] 00 :00 bedtime. Medical Branch amitriptyli 2020- No [id number] 50mg Take 1 [facility] ne 50 mg -09 01- tablet by ity o f tablet 00:00: 00:00 mouth at [place] 00 :00 bedtime. Medical Branch cephALEXin 1- No [id number] 1 tab 2x/d [facility] 500 mg 10-16- ity of tablet 00:00: 00:00 [place] 00 :00 Medical Branch cephALEXin 202-0 1- No [id number] 1 tab 2x/d [facility] 500 mg 10-16- ity of tablet 00:00: 00:00 [place] 00 :00 Medical Branch cephALEXin 0 1- No [id number] 1 tab 2x/d [facility] 500 mg 10-16- ity of tablet 00:00: 00:00 [place] 00 :00 Medical Branch cephALEXin 2020-0 1- No [id number] 1 tab 2x/d [facility] 500 mg 10-16- ity of tablet 00:00: 00:00 [place] 00 :00 Medical Branch cephALEXin 0 1- No [id number] 1 tab 2x/d [facility] 500 mg 10-16 ity of tablet 00:00: 00:00 [place] 00 :00 Medical Branch cephALEXin 2020-0 1- No [id number] 1 tab 2x/d [facility] 500 mg 10-16 ity of tablet 00:00: 00:00 [place] 00 :00 Medical Branch cephALEXin 2020-0 1- No [id number] 1 tab 2x/d [facility] 500 mg 10-16- ity of tablet 00:00: 00:00 [place] 00 :00 Medical Branch cephALEXin 2020-0 1- No [id number] 1 tab 2x/d [facility] 500 mg 10-16- ity of tablet 00:00: 00:00 [place] 00 :00 Medical Branch cephALEXin 202-0 1- No [id number] 1 tab 2x/d [facility] 500 mg 10-16- ity of tablet 00:00: 00:00 [place] 00 :00 Medical Branch cephALEXin 2020-0 1- No [id number] 1 tab 2x/d [facility] 500 mg 10-16- ity of tablet 00:00: 00:00 [place] 00 :00 Medical Branch cephALEXin 2020-0 1- No [id number] 1 tab 2x/d [facility] 500 mg 10-16- ity of tablet 00:00: 00:00 [place] 00 :00 Medical Branch cephALEXin 202-0 2021- No [id number] 1 tab 2x/d [facility] 500 mg 10-16 ity of tablet 00:00: 00:00 [place] 00 :00 Medical Branch cephALEXin 2020- No [id number] 1 tab 2x/d [facility] 500 mg 10-16 ity of tablet 00:00: 00:00 [place] 00 :00 Medical Branch cyclobenzap 2020- No [id number] TAKE 1 [facility] rine 5 mg -04 -16 TABLET BY ity of tablet 00:00: 00:00 MOUTH [place] 00 :00 EVERY 8 Medical HOURS Branch NEEDED cyclobenzap 2020- No [id number] TAKE 1 [facility] rine 5 mg 1-04 -16 TABLET BY ity of tablet 00:00: 00:00 MOUTH [place] 00 :00 EVERY 8 Medical HOURS Branch NEEDED cyclobenzap 2020- No [id number] TAKE 1 [facility] rine 5 mg 1-04 -16 TABLET BY ity of tablet 00:00: 00:00 MOUTH [place] 00 :00 EVERY 8 Medical HOURS Branch NEEDED cyclobenzap 2020- No [id number] TAKE 1 [facility] rine 5 mg 1-04 -16 TABLET BY ity of tablet 00:00: 00:00 MOUTH [place] 00 :00 EVERY 8 Medical HOURS Branch NEEDED cyclobenzap 2020- No [id number] TAKE 1 [facility] rine 5 mg 1-04 -16 TABLET BY ity of tablet 00:00: 00:00 MOUTH [place] 00 :00 EVERY 8 Medical HOURS Branch NEEDED cyclobenzap 2020- No [id number] TAKE 1 [facility] rine 5 mg -04 -16 TABLET BY ity of tablet 00:00: 00:00 MOUTH [place] 00 :00 EVERY 8 Medical HOURS Branch NEEDED citalopram 2019-09- No [id number] 40mg Take 1 [facility] 40 mg 2-28 - tablet by ity of tablet 00:00: 00:00 mouth [place] 00 :00 daily. Medical Branch citalopram 2019-09- No [id number] 40mg Take 1 [facility] 40 mg 2-28 - tablet by ity of tablet 00:00: 00:00 mouth [place] 00 :00 daily. Medical Branch citalopram 2019-09- No [id number] 40mg Take 1 [facility] 40 mg 2-28 11-09 tablet by ity of tablet 00:00: 00:00 mouth [place] 00 :00 daily. [facility] citalopram 2019-09- No [id number] 40mg Take 1 [facility] 40 mg 2-28 11-09 tablet by ity of tablet 00:00: 00:00 mouth [place] 00 :00 daily. [facility] citalopram 2019-09- No [id number] 40mg Take 1 [facility] 40 mg 2-28 11- tablet by ity of tablet 00:00: 00:00 mouth [place] 00 :00 daily. [facility] citalopram 2019-09- No [id number] 40mg Take 1 [facility] 40 mg 2-28 11- tablet by ity of tablet 00:00: 00:00 mouth [place] 00 :00 daily. [facility] citalopram 2019-09- No [id number] 40mg Take 1 [facility] 40 mg 2-28 11- tablet by ity of tablet 00:00: 00:00 mouth [place] 00 :00 daily. [facility] citalopram 2019-09- No [id number] 40mg Take 1 [facility] 40 mg 2-28 11- tablet by ity of tablet 00:00: 00:00 mouth [place] 00 :00 daily. [facility] citalopram 2019-09- No [id number] 40mg Take 1 [facility] 40 mg 2-28 11- tablet by ity of tablet 00:00: 00:00 mouth [place] 00 :00 daily. [facility] citalopram 2019-09- No [id number] 40mg Take 1 [facility] 40 mg 2-28 11-09 tablet by ity of tablet 00:00: 00:00 mouth [place] 00 :00 daily. [facility] citalopram 2019-09- No [id number] 40mg Take 1 [facility] 40 mg 2-28 11-09 tablet by ity of tablet 00:00: 00:00 mouth [place] 00 :00 daily. [facility] citalopram 2019-09- No [id number] 40mg Take 1 [facility] 40 mg 2-28 11-09 tablet by ity of tablet 00:00: 00:00 mouth [place] 00 :00 daily. [facility] citalopram 2019-09- No [id number] 40mg Take 1 [facility] 40 mg 2-28 -09 tablet by ity of tablet 00:00: 00:00 mouth [place] 00 :00 daily. Medical Branch citalopram 2019-09- No [id number] 40mg Take 1 [facility] 40 mg 2-28 11-09 tablet by ity of tablet 00:00: 00:00 mouth [place] 00 :00 daily. Medical Branch busPIRone 2019-09- No [id number] 20mg Take 2 U nivers 10 mg 2-28 06-15 tablets by ity of tablet 00:00: 00:00 mouth 2 [place] 00 :00 (two) Medical times Branch daily. busPIRone 2019-09- No [id number] 20mg Take 2 U nivers 10 mg 2-28 06-15 tablets by ity of tablet 00:00: 00:00 mouth 2 [place] 00 :00 (two) Medical times Branch daily. busPIRone 2019-09- No [id number] 20mg Take 2 U nivers 10 mg 2-28 06-15 tablets by ity of tablet 00:00: 00:00 mouth 2 [place] 00 :00 (two) Medical times Branch daily. busPIRone 2019-09- No [id number] 20mg Take 2 U nivers 10 mg 2-28 06-15 tablets by ity of tablet 00:00: 00:00 mouth 2 [place] 00 :00 (two) Medical times Branch daily. busPIRone 2019-09- No [id number] 20mg Take 2 U nivers 10 mg 2-28 06-15 tablets by ity of tablet 00:00: 00:00 mouth 2 [place] 00 :00 (two) Medical times Branch daily. busPIRone 2019-09- No [id number] 20mg Take 2 U nivers 10 mg 2-28 06-15 tablets by ity of tablet 00:00: 00:00 mouth 2 [place] 00 :00 (two) Medical times Branch daily. busPIRone 2019-09- No [id number] 20mg Take 2 U nivers 10 mg 2-28 06-15 tablets by ity of tablet 00:00: 00:00 mouth 2 [place] 00 :00 (two) Medical times Branch daily. busPIRone 2019-09- No [id number] 20mg Take 2 U nivers 10 mg 2-28 06-15 tablets by ity of tablet 00:00: 00:00 mouth 2 [place] 00 :00 (two) Medical times Branch daily. busPIRone 2019-09- No [id number] 20mg Take 2 U nivers 10 mg 2-28 06-15 tablets by ity of tablet 00:00: 00:00 mouth 2 [place] 00 :00 (two) Medical times Branch daily. metFORMIN 2019-09- No [id number] 500mg Take 1 [facility] 500 mg 2-10 05-05 tablet by ity of tablet 00:00: 00:00 mouth 2 [place] 00 :00 (two) Medical times Branch daily with meals. metFORMIN 2019-09- No [id number] 500mg Take 1 [facility] 500 mg 2-10 05-05 tablet by ity of tablet 00:00: 00:00 mouth 2 [place] 00 :00 (two) Medical times Branch daily with meals. metFORMIN 2019-09- No [id number] 500mg Take 1 [facility] 500 mg 2-10 05-05 tablet by ity of tablet 00:00: 00:00 mouth 2 [place] 00 :00 (two) Medical times Branch daily with meals. metFORMIN 2019-09- No [id number] 500mg Take 1 [facility] 500 mg 2-10 05-05 tablet by ity of tablet 00:00: 00:00 mouth 2 [place] 00 :00 (two) Medical times Branch daily with meals. metFORMIN 2019-09- No [id number] 500mg Take 1 [facility] 500 mg 2-10 05-05 tablet by ity of tablet 00:00: 00:00 mouth 2 [place] 00 :00 (two) Medical times Branch daily with meals. metFORMIN 2019-09- No [id number] 500mg Take 1 [facility] 500 mg 2-10 05-05 tablet by ity of tablet 00:00: 00:00 mouth 2 [place] 00 :00 (two) Medical times Branch daily with meals. metFORMIN 2019-09- No [id number] 500mg Take 1 [facility] 500 mg 2-10 05-05 tablet by ity of tablet 00:00: 00:00 mouth 2 [place] 00 :00 (two) Medical times Branch daily with meals. AMITRIPTYLI 2019-09- No [id number] TAKE 1 [facility] NE 50 mg 2-12 26-12 TABLET BY ity o f tablet 00:00: 00:00 MOUTH AT [place] 00 :00 BEDTIME Medical Branch AMITRIPTYLI 2019-09- No [id number] TAKE 1 [facility] NE 50 mg 2-12 26-12 TABLET BY ity o f tablet 00:00: 00:00 MOUTH AT [place] 00 :00 BEDTIME Medical Branch AMITRIPTYLI 2019-09- No [id number] TAKE 1 [facility] NE 50 mg 2-12 26-12 TABLET BY ity o f tablet 00:00: 00:00 MOUTH AT [place] 00 :00 BEDTIME Medical Branch AMITRIPTYLI 2019-09- No [id number] TAKE 1 [facility] NE 50 mg 2-12 26-12 TABLET BY ity o f tablet 00:00: 00:00 MOUTH AT [place] 00 :00 BEDTIME Medical Branch econazole 2019-09- No Apply to Uni vers nitrate 1 % 10-25 area(s) 2 it y of cream 00:00: 00:00 (two) [place] 00 :00 times Medical daily. [place] econazole 2019-09- No Apply to Uni vers nitrate 1 % 10-25 area(s) 2 it y of cream 00:00: 00:00 (two) [place] 00 :00 times Medical daily. [place] econazole 2019-09- No Apply to [facility] vers nitrate 1 % 10-25 area(s) 2 it y of cream 00:00: 00:00 (two) [place] 00 :00 times Medical daily. [place] econazole 2019-09- No Apply to Uni vers nitrate 1 % 10-25 area(s) 2 it y of cream 00:00: 00:00 (two) [place] 00 :00 times Medical daily. [place] econazole 2019-09- No Apply to [facility] vers nitrate 1 % 10-25 area(s) 2 it y of cream 00:00: 00:00 (two) [place] 00 :00 times Medical daily. [place] econazole 2019-09- No Apply to [facility] vers nitrate 1 % 10-25 area(s) 2 it y of cream 00:00: 00:00 (two) [place] 00 :00 times Medical daily. [place] econazole 2019-09- No Apply to Uni vers [...] (two) [place] 00 :00 times Medical daily. [place] econazole 2019-09- No Apply to Uni vers nitrate 1 % 10-25 area(s) 2 it y of cream 00:00: 00:00 (two) [place] 00 :00 times Medical daily. [place] econazole 2019-09- No Apply to [facility] vers nitrate 1 % 10-25 area(s) 2 it y of cream 00:00: 00:00 (two) [place] 00 :00 times Medical daily. [place] econazole 2019-09- No Apply to [facility] vers nitrate 1 % 10-25 area(s) 2 it y of cream 00:00: 00:00 (two) [place] 00 :00 times Medical daily. [place] econazole 2019-09- No Apply to Uni vers [...] TABLET BY ity of tablet 00:00: MOUTH [place] 00 EVERY 6 Medical HOURS Branch NEEDED [...] mouth ity of capsule 00:00: 00:00 daily. [place] 00 :00 Medical Branch omeprazole 2019-09- No 20mg Take 20 mg [facility] 20 mg 08-26 by mouth ity of capsule 00:00: 00:00 daily. [place] 00 :00 Medical Branch omeprazole 2019-09- No 20mg Take 20 mg [facility] 20 mg 08-26 by mouth ity of capsule 00:00: 00:00 daily. [place] 00 :00 Medical Branch omeprazole 2019-09- No 20mg Take 20 mg [facility] 20 mg 08-26 by mouth ity of capsule 00:00: 00:00 daily. [place] 00 :00 Medical [place] omeprazole 2019-1 1- No 20mg Take 20 mg [facility] 20 mg 08-26 by mouth ity of capsule 00:00: 00:00 daily. [place] 00 :00 Medical Branch omeprazole 2020-1 1- No 20mg Take 20 mg [facility] 20 mg 08-26 by mouth ity of capsule 00:00: 00:00 daily. [place] 00 :00 Medical Branch omeprazole 2020-1 1- No 20mg Take 20 mg [facility] 20 mg 08-26 by mouth ity of capsule 00:00: 00:00 daily. [place] 00 :00 Medical Branch omeprazole 2020-1 1- No 20mg Take 20 mg [facility] 20 mg 08-26 by mouth ity of capsule 00:00: 00:00 daily. [place] 00 :00 Medical Branch omeprazole 2020-1 1- No 20mg Take 20 mg [facility] 20 mg 08-26 by mouth ity of capsule 00:00: 00:00 daily. [place] 00 :00 Medical Branch omeprazole 2020-1 1- No 20mg Take 20 mg [facility] 20 mg 08-26 by mouth ity of capsule 00:00: 00:00 daily. [place] 00 :00 Medical Branch omeprazole 2020-1 2020- No 20mg Take 20 mg [facility] 20 mg 08-26 by mouth ity of capsule 00:00: 00:00 daily. [place] 00 :00 Medical [place] omeprazole 2020-1 1- No 20mg Take 20 mg [facility] 20 mg 08-26 by mouth ity of capsule 00:00: 00:00 daily. [place] 00 :00 Medical Branch omeprazole 2020-1 1- No 20mg Take 20 mg [facility] 20 mg 08-26 by mouth ity of capsule 00:00: 00:00 daily. [place] 00 :00 Medical Branch omeprazole 2020-1 1- No 20mg Take 20 mg [facility] 20 mg 08-26 by mouth ity of capsule 00:00: 00:00 daily. [place] 00 :00 Medical Branch omeprazole 2020-1 1- No 20mg Take 20 mg [facility] 20 mg 08-26 by mouth ity of capsule 00:00: 00:00 daily. [place] 00 :00 Medical Branch omeprazole 2020-1 1- No 20mg Take 20 mg [facility] 20 mg 08-26 by mouth ity of capsule 00:00: 00:00 daily. [place] 00 :00 [facility] TAKE 1 Unive rs [...] FOR Branch 90 DAYS CYANOCOBALA 2020- No [id number] INJECT 1 [facility] MIN 1,000 8-31 06-01 ML (CC) ity of mcg/mL 00:00: 00:00 INTRAMUSCU [place] injection 00 :00 LARLY Medical EVERY TWO Branch WEEKS ( INDICATION S B12 DEFICIENCY ) CYANOCOBALA 2020- No [id number] INJECT 1 [facility] MIN 1,000 8-31 06-01 ML (CC) ity of mcg/mL 00:00: 00:00 INTRAMUSCU [place] injection 00 :00 LARLY Medical EVERY TWO Branch WEEKS ( INDICATION S B12 DEFICIENCY ) CYANOCOBALA 2020- No [id number] INJECT 1 [facility] MIN 1,000 8-31 06-01 ML (CC) ity of mcg/mL 00:00: 00:00 INTRAMUSCU [place] injection 00 :00 LARLY Medical EVERY TWO Branch WEEKS ( INDICATION S B12 DEFICIENCY ) CYANOCOBALA 2020- No [id number] INJECT 1 [facility] MIN 1,000 8-31 06-01 ML (CC) ity of mcg/mL 00:00: 00:00 INTRAMUSCU [place] injection 00 :00 LARLY Medical EVERY TWO Branch WEEKS ( INDICATION S B12 DEFICIENCY ) CYANOCOBALA 2020- No [id number] INJECT 1 [facility] MIN 1,000 8-31 06-01 ML (CC) ity of mcg/mL 00:00: 00:00 INTRAMUSCU [place] injection 00 :00 LARLY Medical EVERY TWO Branch WEEKS ( INDICATION S B12 DEFICIENCY ) CYANOCOBALA 2020- No [id number] INJECT 1 [facility] MIN 1,000 8-31 06-01 ML (CC) ity of mcg/mL 00:00: 00:00 INTRAMUSCU [place] injection 00 :00 LARLY Medical EVERY TWO Branch WEEKS ( INDICATION S B12 DEFICIENCY ) CYANOCOBALA 2020- No [id number] INJECT 1 [facility] MIN 1,000 8-31 06-01 ML (CC) ity of mcg/mL 00:00: 00:00 INTRAMUSCU [place] injection 00 :00 LARLY Medical EVERY TWO Branch WEEKS ( INDICATION S B12 DEFICIENCY ) CYANOCOBALA 2020- No [id number] INJECT 1 [facility] MIN 1,000 8-31 06-01 ML (CC) ity of mcg/mL 00:00: 00:00 INTRAMUSCU [place] injection 00 :00 LARLY Medical EVERY TWO Branch WEEKS ( INDICATION S B12 DEFICIENCY ) CYANOCOBALA 2020- No [id number] INJECT 1 [facility] MIN 1,000 8-31 06-01 ML (CC) ity of mcg/mL 00:00: 00:00 INTRAMUSCU [place] injection 00 :00 LARLY Medical EVERY TWO Branch WEEKS ( INDICATION S B12 DEFICIENCY ) pregabalin 2020- No [id number] 150mg Take 1 [facility] 150 mg 8-23 11-12 capsule by ity of capsule 00:00: 00:00 mouth 3 [place] 00 :00 (three) Medical times Branch daily. pregabalin No [id number] 150mg Take 1 [facility] 150 mg 8-23 11-12 capsule by ity of capsule 00:00: 00:00 mouth 3 [place] 00 :00 (three) Medical times Branch daily. pregabalin No [id number] 150mg Take 1 [facility] 150 mg 8-23 11-12 capsule by ity of capsule 00:00: 00:00 mouth 3 [place] 00 :00 (three) Medical times Branch daily. pregabalin No [id number] 150mg Take 1 [facility] 150 mg 8-12 capsule by ity of capsule 00:00: 00:00 mouth 3 [place] 00 :00 (three) Medical times Branch daily. pregabalin No [id number] 150mg Take 1 [facility] 150 mg 8-12 capsule by ity of capsule 00:00: 00:00 mouth 3 [place] 00 :00 (three) Medical times Branch daily. cyclobenzap 2020- No [id number] TAKE 1 [facility] rine 5 mg 7-16 -04 TABLET BY ity of tablet 00:00: 00:00 MOUTH [place] 00 :00 EVERY 8 Medical HOURS Branch NEEDED citalopram No [id number] 40mg Take 1 [facility] 40 mg 6-15 -28 tablet by ity of tablet 00:00: 00:00 mouth [place] 00 :00 daily. Medical Branch busPIRone No [id number] 20mg Take 2 U nivers 10 mg 6-15 12-18 tablets by ity of tablet 00:00: 00:00 mouth 2 [place] 00 :00 (two) Medical times Branch daily. losartan 50 No [id number] 50mg Take 1 [facility] mg tablet 02-24 tablet by ity of 00:00: 00:00 mouth 2 [place] 00 :00 (two) Medical times Branch daily. losartan 50 2020- No [id number] 50mg Take 1 [facility] mg tablet 02-24 tablet by ity of 00:00: 00:00 mouth 2 [place] 00 :00 (two) Medical times Branch daily. losartan 50 2020- No [id number] 50mg Take 1 [facility] mg tablet 02-24 tablet by ity of 00:00: 00:00 mouth 2 [place] 00 :00 (two) Medical times Branch daily. losartan 50 2020- No [id number] 50mg Take 1 [facility] mg tablet 02-24 tablet by ity of 00:00: 00:00 mouth 2 [place] 00 :00 (two) Medical times Branch daily. losartan 50 2020- No [id number] 50mg Take 1 [facility] mg tablet 02-24 tablet by ity of 00:00: 00:00 mouth 2 [place] 00 :00 (two) Medical times Branch daily. losartan 50 2020- No [id number] 50mg Take 1 [facility] mg tablet 02-24 tablet by ity of 00:00: 00:00 mouth 2 [place] 00 :00 (two) Medical times Branch daily. losartan 50 2020- No [id number] 50mg Take 1 [facility] mg tablet 02-24 tablet by ity of 00:00: 00:00 mouth 2 [place] 00 :00 (two) Medical times Branch daily. [...] hours. Branch on inhaler levothyroxi 2020- No [id number] TAKE 1 [facility] ne 50 mcg 01-09- TABLET BY ity of tablet 00:00: 00:00 MOUTH ONCE [place] 00 :00 DAILY IN [facility] MORNING levothyroxi 2020- No [id number] TAKE 1 [facility] ne 50 mcg 4-16 - TABLET BY ity of tablet 00:00: 00:00 MOUTH ONCE [place] 00 :[place] DAILY IN [facility] MORNING levothyroxi 2020- No [id number] TAKE 1 [facility] ne 50 mcg -16 - TABLET BY ity of tablet 00:00: 00:00 MOUTH [place]CE [place] 00 :[place] DAILY IN [facility] levothyroxi No [id number] TAKE 1 [facility] ne 50 mcg 4-16 - TABLET BY ity of tablet 00:00: 00:00 MOUTH ONCE [place] 00 :[place] DAILY IN [facility] levothyroxi 2020- No [id number] TAKE 1 [facility] ne 50 mcg -16 - TABLET BY ity of tablet 00:00: 00:00 MOUTH ONCE [place] 00 :[place] DAILY IN [facility] levothyroxi No [id number] TAKE 1 [facility] ne 50 mcg -16 02-24 TABLET BY ity of tablet 00:00: 00:00 MOUTH ONCE [place] 00 :[place] DAILY IN [facility] levothyroxi 2020- No [id number] TAKE 1 [facility] ne 50 mcg -16 02-24 TABLET BY ity of tablet 00:00: 00:00 MOUTH [place]CE [place] 00 :00 DAILY IN [facility] levothyroxi 2020- No [id number] TAKE 1 [facility] ne 50 mcg -16 02-24 TABLET BY ity of tablet 00:00: [place] DA[place] IN [facility] levothyroxi 2020- No [id number] TAKE 1 [facility] ne 50 mcg -16 - TABLET BY ity of tablet 00:00: 00[place] DA[place] IN [facility] rosuvastati 2020- No [id number] 10mg Take 1 [facility] n 10 mg -16 -28 tablet by ity of tablet 00:00: 00:00 mouth at [place] 00 :00 bedtime. [facility] rosuvastati 2020- No [id number] 10mg Take 1 [facility] n 10 mg 4-16 -28 tablet by ity of tablet 00:00: 00:00 mouth at [place] 00 :00 bedtime. [facility] rosuvastati 2020- No [id number] 10mg Take 1 [facility] n 10 mg 4-16 04-28 tablet by ity of tablet 00:00: 00:00 mouth at [place] 00 :00 bedtime. [facility] rosuvastati 2020- No [id number] 10mg Take 1 [facility] n 10 mg 4-16 04-28 tablet by ity of tablet 00:00: 00:00 mouth at [place] 00 :00 bedtime. [facility] rosuvastati 2020- No [id number] 10mg Take 1 [facility] n 10 mg 4-16 04-28 tablet by ity of tablet 00:00: 00:00 mouth at [place] 00 :00 bedtime. [facility] rosuvastati No [id number] 10mg Take 1 [facility] n 10 mg 4-16 04-28 tablet by ity of tablet 00:00: 00:00 mouth at [place] 00 :00 bedtime. [facility] rosuvastati No [id number] 10mg Take 1 [facility] n 10 mg 4-16 04-28 tablet by ity of tablet 00:00: 00:00 mouth at [place] 00 :00 bedtime. [facility] amitriptyli 2019- No [id number] 100mg Take 2 [facility] ne 50 mg 4-10 12-04 tablets by it[facility] of tablet 00:00: 00:00 mouth at [place] 00 :00 bedtime. [facility] fluticasone No [id number] USE 2 [facility] propionate 7- 02-25 SPRAY(S) ity of 50 00:00: 00:00 IN EACH [place] mcg/actuati 00 :00 NOSTRIL Medic al on nasal ONCE DAILY Branc h spray fluticasone No [id number] USE 2 [facility] propionate 7- 02-25 SPRAY(S) ity of 50 00:00: 00:00 IN EACH [place] mcg/actuati 00 :00 NOSTRIL Medic al on nasal ONCE DAILY Branc h spray fluticasone No [id number] USE 2 [facility] propionate 7- 02-25 SPRAY(S) ity of 50 00:00: 00:00 IN EACH [place] mcg/actuati 00 :00 NOSTRIL Medic al on nasal ONCE DAILY Branc h spray fluticasone No [id number] USE 2 [facility] propionate 7- 0225 SPRAY(S) ity of 50 00:00: 00:00 IN EACH [place] mcg/actuati 00 :00 NOSTRIL Medic al on nasal ONCE DAILY Branc h spray fluticasone 2020- No [id number] USE 2 [facility] propionate 7-25 SPRAY(S) ity of 50 00:00: 00:00 IN EACH [place] mcg/actuati 00 :00 NOSTRIL Medic al on nasal ONCE DAILY Branc h spray fluticasone 2020- No [id number] USE 2 [facility] propionate 7-25 SPRAY(S) ity of 50 00:00: 00:00 IN EACH [place] mcg/actuati 00 :00 NOSTRIL Medic al on nasal ONCE DAILY Branc h spray fluticasone 2020- No [id number] USE 2 [facility] propionate 03-2625 SPRAY(S) ity of 50 00:00: 00:00 IN EACH [place] mcg/actuati 00 :00 NOSTRIL Medic al on nasal ONCE DAILY Branc h spray Ginkgo 2019-0 Yes [facility] [place] 120 1-16 ity of mg Tab 00:00: [place] 00 Medical Branch Ginkgo 2019-0 Yes [facility] [place] 120 1-16 ity of mg Tab 00:00: [place] 00 Medical Branch Ginkgo 2019-0 Yes [facility] [place] 120 1-16 ity of mg Tab 00:00: [place] 00 [facility] Branch Ginkgo 2019-0 Yes [facility] [place] 120 1-16 ity of mg Tab 00:00: [place] [facility] Ginkgo 2019-0 Yes [facility] [place] 120 1-16 ity of mg Tab 00:00: [place] 00 Medical Branch Ginkgo 2019-0 Yes [facility] [place] 120 1-16 ity of mg Tab 00:00: [place] 00 Medical Branch Ginkgo 2019-0 Yes [facility] [place] 120 1-16 ity of mg Tab 00:00: [place] 00 [facility] Branch Ginkgo 2019-0 Yes [facility] [place] 120 1-16 ity of mg Tab 00:00: [place] 00 Medical Branch Ginkgo 2019-0 Yes [facility] [place] 120 1-16 ity of mg Tab 00:00: [place] 00 Medical Branch Ginkgo 2019-0 Yes Univers [...] [place] 00 :00 Medical Branch FERROUS Yes [id number] TAKE ONE Uni vers SULFATE 325 8-13 TABLET BY ity of mg (65 mg 00:00: MOUTH [place] iron) 00 THREE Medical tablet TIMES Branch DAILY WITH MEALS FERROUS Yes [id number] TAKE ONE [facility] vers SULFATE 325 8-13 TABLET BY ity of mg (65 mg 00:00: MOUTH [place] iron) 00 THREE Medical tablet TIMES Branch DAILY WITH MEALS FERROUS Yes [id number] TAKE ONE [facility] vers SULFATE 325 8-13 TABLET BY ity of mg (65 mg 00:00: MOUTH [place] iron) 00 THREE Medical tablet TIMES Branch DAILY WITH MEALS FERROUS Yes [id number] TAKE ONE [facility] vers SULFATE 325 8-13 TABLET BY ity of mg (65 mg 00:00: MOUTH [place] iron) 00 THREE Medical tablet TIMES Branch DAILY WITH MEALS FERROUS Yes [id number] TAKE ONE [facility] vers SULFATE 325 8-13 TABLET BY ity of mg (65 mg 00:00: MOUTH [place] iron) 00 THREE Medical tablet TIMES Branch DAILY WITH MEALS FERROUS Yes [id number] TAKE ONE [facility] vers SULFATE 325 8-13 TABLET BY ity of mg (65 mg 00:00: MOUTH [place] iron) 00 THREE Medical tablet TIMES Branch DAILY WITH MEALS FERROUS Yes [id number] TAKE ONE [facility] vers SULFATE 325 8-13 TABLET BY ity of mg (65 mg 00:00: MOUTH [place] iron) 00 THREE Medical tablet TIMES Branch DAILY WITH MEALS FERROUS Yes [id number] TAKE ONE [facility] vers SULFATE 325 8-13 TABLET BY ity of mg (65 mg 00:00: MOUTH [place] iron) 00 THREE Medical tablet TIMES Branch DAILY WITH MEALS FERROUS Yes [id number] TAKE ONE [facility] vers SULFATE 325 8-13 TABLET BY ity of mg (65 mg 00:00: MOUTH [place] iron) 00 THREE Medical tablet TIMES Branch DAILY WITH MEALS FERROUS Yes [id number] TAKE ONE [facility] vers SULFATE 325 8-13 TABLET BY ity of mg (65 mg 00:00: MOUTH [place] iron) 00 THREE Medical tablet TIMES Branch DAILY WITH MEALS FERROUS Yes [id number] TAKE ONE [facility] vers SULFATE 325 8-13 TABLET BY ity of mg (65 mg 00:00: MOUTH [place] iron) 00 THREE Medical tablet TIMES Branch DAILY WITH MEALS FERROUS Yes [id number] TAKE ONE [facility] vers SULFATE 325 8-13 TABLET BY ity of mg (65 mg 00:00: MOUTH [place] iron) 00 THREE Medical tablet TIMES Branch DAILY WITH MEALS FERROUS Yes [id number] TAKE ONE [facility] vers SULFATE 325 8-13 TABLET BY ity of mg (65 mg 00:00: MOUTH [place] iron) 00 THREE Medical tablet TIMES Branch DAILY WITH MEALS FERROUS Yes [id number] TAKE ONE [facility] vers SULFATE 325 8-13 TABLET BY ity of mg (65 mg 00:00: MOUTH [place] iron) 00 THREE Medical tablet TIMES Branch DAILY WITH MEALS FERROUS Yes [id number] TAKE ONE [facility] vers SULFATE 325 8-13 TABLET BY ity of mg (65 mg 00:00: MOUTH [place] iron) 00 THREE Medical tablet TIMES Branch DAILY WITH MEALS FERROUS Yes [id number] TAKE ONE [facility] vers SULFATE 325 8-13 TABLET BY ity of mg (65 mg 00:00: MOUTH [place] iron) 00 THREE Medical tablet TIMES Branch DAILY WITH MEALS FERROUS Yes [id number] TAKE ONE [facility] vers SULFATE 325 8-13 TABLET BY ity of mg (65 mg 00:00: MOUTH [place] iron) 00 THREE Medical tablet TIMES Branch DAILY WITH MEALS FERROUS Yes [id number] TAKE ONE [facility] vers SULFATE 325 8-13 TABLET BY ity of mg (65 mg 00:00: MOUTH [place] iron) 00 THREE Medical tablet TIMES Branch DAILY WITH MEALS FERROUS Yes [id number] TAKE ONE [facility] vers SULFATE 325 8-13 TABLET BY ity of mg (65 mg 00:00: MOUTH [place] iron) 00 THREE Medical tablet TIMES Branch DAILY WITH MEALS FERROUS Yes [id number] TAKE ONE [facility] vers SULFATE 325 8-13 TABLET BY ity of mg (65 mg 00:00: MOUTH [place] iron) 00 THREE Medical tablet TIMES Branch DAILY WITH MEALS FERROUS Yes [id number] TAKE ONE [facility] vers SULFATE 325 8-13 TABLET BY ity of mg (65 mg 00:00: MOUTH [place] iron) 00 THREE Medical tablet TIMES Branch DAILY WITH MEALS FERROUS Yes [id number] TAKE ONE [facility] vers SULFATE 325 8-13 TABLET BY ity of mg (65 mg 00:00: MOUTH [place] iron) 00 THREE Medical tablet TIMES Branch DAILY WITH MEALS FERROUS Yes [id number] TAKE ONE [facility] vers SULFATE 325 8-13 TABLET BY ity of mg (65 mg 00:00: MOUTH [place] iron) 00 THREE Medical tablet TIMES Branch DAILY WITH MEALS FERROUS Yes [id number] TAKE ONE [facility] vers SULFATE 325 8-13 TABLET BY ity of mg (65 mg 00:00: MOUTH [place] iron) 00 THREE Medical tablet TIMES Branch DAILY WITH MEALS FERROUS Yes [id number] TAKE ONE [facility] vers SULFATE 325 8-13 TABLET BY ity of mg (65 mg 00:00: MOUTH [place] iron) 00 THREE Medical tablet TIMES Branch DAILY WITH MEALS FERROUS Yes [id number] TAKE ONE [facility] vers SULFATE 325 8-13 TABLET BY ity of mg (65 mg 00:00: MOUTH [place] iron) 00 THREE Medical tablet TIMES Branch DAILY WITH MEALS FERROUS Yes [id number] TAKE ONE [facility] vers SULFATE 325 8-13 TABLET BY ity of mg (65 mg 00:00: MOUTH [place] iron) 00 THREE Medical tablet TIMES Branch DAILY WITH MEALS FERROUS Yes [id number] TAKE ONE [facility] vers SULFATE 325 8-13 TABLET BY ity of mg (65 mg 00:00: MOUTH [place] iron) 00 THREE Medical tablet TIMES Branch DAILY WITH MEALS FERROUS Yes [id number] TAKE ONE [facility] vers SULFATE 325 8-13 TABLET BY ity of mg (65 mg 00:00: MOUTH [place] iron) 00 THREE Medical tablet TIMES Branch DAILY WITH MEALS FERROUS Yes [id number] TAKE ONE [facility] vers SULFATE 325 8-13 TABLET BY ity of mg (65 mg 00:00: MOUTH [place] iron) 00 THREE Medical tablet TIMES Branch DAILY WITH MEALS FERROUS Yes [id number] TAKE ONE [facility] vers SULFATE 325 8-13 TABLET BY ity of mg (65 mg 00:00: MOUTH [place] iron) 00 THREE Medical tablet TIMES Branch DAILY WITH MEALS FERROUS Yes [id number] TAKE ONE [facility] vers SULFATE 325 8-13 TABLET BY ity of mg (65 mg 00:00: MOUTH [place] iron) 00 THREE Medical tablet TIMES Branch DAILY WITH MEALS FERROUS Yes [id number] TAKE ONE [facility] vers SULFATE 325 8-13 TABLET BY ity of mg (65 mg 00:00: MOUTH [place] iron) 00 THREE Medical tablet TIMES Branch DAILY WITH MEALS FERROUS Yes [id number] TAKE ONE [facility] vers SULFATE 325 8-13 TABLET BY ity of mg (65 mg 00:00: MOUTH [place] iron) 00 THREE Medical tablet TIMES Branch DAILY WITH MEALS FERROUS Yes [id number] TAKE ONE [facility] vers SULFATE 325 8-13 TABLET BY ity of mg (65 mg 00:00: MOUTH [place] iron) 00 THREE Medical tablet TIMES Branch DAILY WITH MEALS FERROUS Yes [id number] TAKE ONE [facility] vers SULFATE 325 8-13 TABLET BY ity of mg (65 mg 00:00: MOUTH [place] iron) 00 THREE Medical tablet TIMES Branch DAILY WITH MEALS FERROUS Yes [id number] TAKE ONE [facility] vers SULFATE 325 8-13 TABLET BY ity of mg (65 mg 00:00: MOUTH [place] iron) 00 THREE Medical tablet TIMES Branch DAILY WITH MEALS FERROUS Yes [id number] TAKE ONE [facility] vers SULFATE 325 8-13 TABLET BY ity of mg (65 mg 00:00: MOUTH [place] iron) 00 THREE Medical tablet TIMES Branch DAILY WITH MEALS FERROUS Yes [id number] TAKE ONE [facility] vers SULFATE 325 8-13 TABLET BY ity of mg (65 mg 00:00: MOUTH [place] iron) 00 THREE Medical tablet TIMES Branch DAILY WITH MEALS FERROUS Yes [id number] TAKE ONE [facility] vers SULFATE 325 8-13 TABLET BY ity of mg (65 mg 00:00: MOUTH [place] iron) 00 THREE Medical tablet TIMES Branch DAILY WITH MEALS FERROUS Yes [id number] TAKE ONE [facility] vers SULFATE 325 8-13 TABLET BY ity of mg (65 mg 00:00: MOUTH [place] iron) 00 THREE Medical tablet TIMES Branch DAILY WITH MEALS FERROUS Yes [id number] TAKE ONE [facility] vers SULFATE 325 8-13 TABLET BY ity of mg (65 mg 00:00: MOUTH [place] iron) 00 THREE Medical tablet TIMES Branch DAILY WITH MEALS FERROUS Yes [id number] TAKE ONE [facility] vers SULFATE 325 8-13 TABLET BY ity of mg (65 mg 00:00: MOUTH [place] iron) 00 THREE Medical tablet TIMES Branch DAILY WITH MEALS FERROUS Yes [id number] TAKE ONE [facility] vers SULFATE 325 8-13 TABLET BY ity of mg (65 mg 00:00: MOUTH [place] iron) 00 THREE Medical tablet TIMES Branch DAILY WITH MEALS FERROUS Yes [id number] TAKE ONE [facility] vers SULFATE 325 8-13 TABLET BY ity of mg (65 mg 00:00: MOUTH [place] iron) 00 THREE Medical tablet TIMES Branch DAILY WITH MEALS FERROUS Yes [id number] TAKE ONE [facility] vers SULFATE 325 8-13 TABLET BY ity of mg (65 mg 00:00: MOUTH [place] iron) 00 THREE Medical tablet TIMES Branch DAILY WITH MEALS FERROUS Yes [id number] TAKE ONE [facility] vers SULFATE 325 8-13 TABLET BY ity of mg (65 mg 00:00: MOUTH [place] iron) 00 THREE Medical tablet TIMES Branch DAILY WITH MEALS FERROUS Yes [id number] TAKE ONE [facility] vers SULFATE 325 8-13 TABLET BY ity of mg (65 mg 00:00: MOUTH [place] iron) 00 THREE Medical tablet TIMES Branch DAILY WITH MEALS FERROUS Yes [id number] TAKE ONE [facility] vers SULFATE 325 8-13 TABLET BY ity of mg (65 mg 00:00: MOUTH [place] iron) 00 THREE Medical tablet TIMES Branch DAILY WITH MEALS FERROUS Yes [id number] TAKE ONE [facility] vers SULFATE 325 8-13 TABLET BY ity of mg (65 mg 00:00: MOUTH [place] iron) 00 THREE Medical tablet TIMES Branch DAILY WITH MEALS FERROUS Yes [id number] TAKE ONE [facility] vers SULFATE 325 8-13 TABLET BY ity of mg (65 mg 00:00: MOUTH [place] iron) 00 THREE Medical tablet TIMES Branch DAILY WITH MEALS FERROUS Yes [id number] TAKE ONE [facility] vers SULFATE 325 8-13 TABLET BY ity of mg (65 mg 00:00: MOUTH [place] iron) 00 THREE Medical tablet TIMES Branch DAILY WITH MEALS FERROUS Yes [id number] TAKE ONE [facility] vers SULFATE 325 8-13 TABLET BY ity of mg (65 mg 00:00: MOUTH [place] iron) 00 THREE Medical tablet TIMES Branch DAILY WITH MEALS FERROUS Yes [id number] TAKE ONE [facility] vers SULFATE 325 8-13 TABLET BY ity of mg (65 mg 00:00: MOUTH [place] iron) 00 THREE Medical tablet TIMES Branch DAILY WITH MEALS FERROUS Yes [id number] TAKE ONE [facility] vers SULFATE 325 8-13 TABLET BY ity of mg (65 mg 00:00: MOUTH [place] iron) 00 THREE Medical tablet TIMES Branch DAILY WITH MEALS FERROUS Yes [id number] TAKE ONE [facility] vers SULFATE 325 8-13 TABLET BY ity of mg (65 mg 00:00: MOUTH [place] iron) 00 THREE Medical tablet TIMES Branch DAILY WITH MEALS FERROUS Yes [id number] TAKE ONE [facility] vers SULFATE 325 8-13 TABLET BY ity of mg (65 mg 00:00: MOUTH [place] iron) 00 THREE Medical tablet TIMES Branch DAILY WITH MEALS FERROUS Yes [id number] TAKE ONE [facility] vers SULFATE 325 8-13 TABLET BY ity of mg (65 mg 00:00: MOUTH [place] iron) 00 THREE Medical tablet TIMES Branch DAILY WITH MEALS FERROUS Yes [id number] TAKE ONE [facility] vers SULFATE 325 8-13 TABLET BY ity of mg (65 mg 00:00: MOUTH [place] iron) 00 THREE Medical tablet TIMES Branch DAILY WITH MEALS FERROUS Yes [id number] TAKE ONE [facility] vers SULFATE 325 8-13 TABLET BY ity of mg (65 mg 00:00: MOUTH [place] iron) 00 THREE Medical tablet TIMES Branch DAILY WITH MEALS FERROUS Yes [id number] TAKE ONE [facility] vers SULFATE 325 8-13 TABLET BY ity of mg (65 mg 00:00: MOUTH [place] iron) 00 THREE Medical tablet TIMES Branch DAILY WITH MEALS FERROUS Yes [id number] TAKE ONE [facility] vers SULFATE 325 8-13 TABLET BY ity of mg (65 mg 00:00: MOUTH [place] iron) 00 THREE Medical tablet TIMES Branch DAILY WITH MEALS FERROUS Yes [id number] TAKE ONE [facility] vers SULFATE 325 8-13 TABLET BY ity of mg (65 mg 00:00: MOUTH [place] iron) 00 THREE Medical tablet TIMES Branch DAILY WITH MEALS FERROUS Yes [id number] TAKE ONE [facility] vers SULFATE 325 8-13 TABLET BY ity of mg (65 mg 00:00: MOUTH [place] iron) 00 THREE Medical tablet TIMES Branch DAILY WITH MEALS FERROUS Yes [id number] TAKE ONE [facility] vers SULFATE 325 8-13 TABLET BY ity of mg (65 mg 00:00: MOUTH [place] iron) 00 THREE Medical tablet TIMES Branch DAILY WITH MEALS FERROUS Yes [id number] TAKE ONE [facility] vers SULFATE 325 8-13 TABLET BY ity of mg (65 mg 00:00: MOUTH [place] iron) 00 THREE Medical tablet TIMES Branch DAILY WITH MEALS FERROUS Yes [id number] TAKE ONE [facility] vers SULFATE 325 8-13 TABLET BY ity of mg (65 mg 00:00: MOUTH [place] iron) 00 THREE Medical tablet TIMES Branch DAILY WITH MEALS FERROUS Yes [id number] TAKE ONE [facility] vers SULFATE 325 8-13 TABLET BY ity of mg (65 mg 00:00: MOUTH [place] iron) 00 THREE Medical tablet TIMES Branch DAILY WITH MEALS FERROUS Yes [id number] TAKE ONE [facility] vers SULFATE 325 8-13 TABLET BY ity of mg (65 mg 00:00: MOUTH [place] iron) 00 THREE Medical tablet TIMES Branch DAILY WITH MEALS FERROUS Yes [id number] TAKE ONE [facility] vers SULFATE 325 8-13 TABLET BY ity of mg (65 mg 00:00: MOUTH [place] iron) 00 THREE Medical tablet TIMES Branch DAILY WITH MEALS FERROUS Yes [id number] TAKE ONE [facility] vers SULFATE 325 8-13 TABLET BY ity of mg (65 mg 00:00: MOUTH [place] iron) 00 THREE Medical tablet TIMES Branch DAILY WITH MEALS FERROUS Yes [id number] TAKE ONE [facility] vers SULFATE 325 8-13 TABLET BY ity of mg (65 mg 00:00: MOUTH [place] iron) 00 THREE Medical tablet TIMES Branch DAILY WITH MEALS FERROUS Yes [id number] TAKE ONE [facility] vers SULFATE 325 8-13 TABLET BY ity of mg (65 mg 00:00: MOUTH [place] iron) 00 THREE Medical tablet TIMES Branch DAILY WITH MEALS FERROUS Yes [id number] TAKE ONE [facility] vers SULFATE 325 8-13 TABLET BY ity of mg (65 mg 00:00: MOUTH [place] iron) 00 THREE Medical tablet TIMES Branch DAILY WITH MEALS FERROUS Yes [id number] TAKE ONE [facility] vers SULFATE 325 8-13 TABLET BY ity of mg (65 mg 00:00: MOUTH [place] iron) 00 THREE Medical tablet TIMES Branch DAILY WITH MEALS FERROUS Yes [id number] TAKE ONE [facility] vers SULFATE 325 8-13 TABLET BY ity of mg (65 mg 00:00: MOUTH [place] iron) 00 THREE Medical tablet TIMES Branch DAILY WITH MEALS FERROUS Yes [id number] TAKE ONE [facility] vers SULFATE 325 8-13 TABLET BY ity of mg (65 mg 00:00: MOUTH [place] iron) 00 THREE Medical tablet TIMES Branch DAILY WITH MEALS FERROUS No [id number] TAKE ONE [facility] [place] SULFATE 325 8-13 01-24 TABLET BY it y of mg (65 mg 00:00: 00:00 MOUTH [place] iron) 00 :00 THREE Medical tablet TIMES Branch DAILY WITH MEALS FERROUS No [id number] TAKE ONE [facility] [place] SULFATE 325 8-13 01-24 TABLET BY it y of mg (65 mg 00:00: 00:00 MOUTH [place] iron) 00 :00 THREE Medical tablet TIMES Branch DAILY WITH MEALS FERROUS No [id number] TAKE ONE [facility] [place] SULFATE 325 8-13 01-24 TABLET BY it y of mg (65 mg 00:00: 00:00 MOUTH [place] iron) 00 :00 THREE Medical tablet TIMES Branch DAILY WITH MEALS FERROUS No [id number] TAKE ONE [facility] [place] SULFATE 325 8-13 01-24 TABLET BY it y of mg (65 mg 00:00: 00:00 MOUTH [place] iron) 00 :00 THREE Medical tablet TIMES Branch DAILY WITH MEALS FERROUS 2022- No [id number] TAKE ONE [facility] SULFATE 325 8-13 -24 TABLET BY it y of mg (65 mg 00:00: 00:00 MOUTH [place] iron) 00 :00 THREE Medical tablet TIMES Branch DAILY WITH MEALS FERROUS 2022- No [id number] TAKE ONE [facility] [place] SULFATE 325 8-13 01-24 TABLET BY it y of mg (65 mg 00:00: 00:00 MOUTH [place] [facility]) 00 :00 THREE Medical tablet TIMES Branch DAILY WITH MEALS FERROUS 2022- No [id number] TAKE ONE [facility] [place] SULFATE 325 8-13 -24 TABLET BY it y of mg (65 mg 00:00: 00:00 MOUTH [place] iron) 00 :00 THREE Medical tablet TIMES Branch DAILY WITH MEALS FERROUS 2022- No [id number] TAKE ONE [facility] [place] SULFATE 325 8-13 01-24 TABLET BY it y of mg (65 mg 00:00: 00:00 MOUTH [place] [facility]) 00 :00 THREE Medical tablet TIMES Branch DAILY WITH MEALS FERROUS No [id number] TAKE ONE [facility] [place] SULFATE 325 8-13 -24 TABLET BY it y of mg (65 mg 00:00: 00:00 MOUTH [place] [facility]) 00 :00 THREE Medical tablet TIMES Branch DAILY WITH MEALS FERROUS No [id number] TAKE ONE [facility] [place] SULFATE 325 8-13 -24 TABLET BY it y of mg (65 mg 00:00: 00:00 MOUTH [place] [facility]) 00 :00 THREE Medical tablet TIMES Branch DAILY WITH MEALS FERROUS No [id number] TAKE ONE [facility] [place] SULFATE 325 8-08 10-24 TABLET BY it y of mg (65 mg 00:00: 00:00 MOUTH [place] iron) 00 :00 THREE Medical tablet TIMES Branch DAILY WITH MEALS FERROUS No [id number] TAKE ONE [facility] [place] SULFATE 325 8-08 10-24 TABLET BY it y of mg (65 mg 00:00: 00:00 MOUTH [place] iron) 00 :00 THREE Medical tablet TIMES Branch DAILY WITH MEALS FERROUS No [id number] TAKE ONE [facility] [place] SULFATE 325 8-08 10-24 TABLET BY it y of mg (65 mg 00:00: 00:00 MOUTH [place] iron) 00 :00 THREE Medical tablet TIMES Branch DAILY WITH MEALS FERROUS No [id number] TAKE ONE [facility] [place] SULFATE 325 8-08 10-24 TABLET BY it y of mg (65 mg 00:00: 00:00 MOUTH [place] iron) 00 :00 THREE Medical tablet TIMES Branch DAILY WITH MEALS FERROUS No [id number] TAKE ONE [facility] [place] SULFATE 325 8-13 -24 TABLET BY it y of mg (65 mg 00:00: 00:00 MOUTH [place] [facility]) 00 :00 THREE Medical tablet TIMES Branch DAILY WITH MEALS FERROUS No [id number] TAKE ONE [facility] [place] SULFATE 325 8-13 -24 TABLET BY it y of mg (65 mg 00:00: 00:00 MOUTH [place] [facility]) 00 :00 THREE Medical tablet TIMES Branch DAILY WITH MEALS FERROUS No [id number] TAKE ONE [facility] [place] SULFATE 325 8-13 -24 TABLET BY it y of mg (65 mg 00:00: 00:00 MOUTH [place] [facility]) 00 :00 THREE Medical tablet TIMES Branch DAILY WITH MEALS FERROUS No [id number] TAKE ONE [facility] [place] SULFATE 325 8-13 -24 TABLET BY it y of mg (65 mg 00:00: 00:00 MOUTH [place] [facility]) 00 :00 THREE Medical tablet TIMES Branch DAILY WITH MEALS FERROUS No [id number] TAKE ONE [facility] [place] SULFATE 325 8-08 10-24 TABLET BY it y of mg (65 mg 00:00: 00:00 MOUTH [place] iron) 00 :00 THREE Medical tablet TIMES Branch DAILY WITH MEALS FERROUS No [id number] TAKE ONE [facility] [place] SULFATE 325 8-08 10-24 TABLET BY it y of mg (65 mg 00:00: 00:00 MOUTH [place] [facility]) 00 :00 THREE Medical tablet TIMES Branch DAILY WITH MEALS FERROUS No [id number] TAKE ONE [facility] [place] SULFATE 325 8-08 10-24 TABLET BY it y of mg (65 mg 00:00: 00:00 MOUTH [place] [facility]) 00 :00 THREE Medical tablet TIMES Branch DAILY WITH MEALS FERROUS No [id number] TAKE ONE [facility] [place] SULFATE 325 8-08 10-24 TABLET BY it y of mg (65 mg 00:00: 00:00 MOUTH [place] [facility]) 00 :00 THREE Medical tablet TIMES Branch DAILY WITH MEALS FERROUS No [id number] TAKE ONE [facility] [place] SULFATE 325 8-08 10-24 TABLET BY it y of mg (65 mg 00:00: 00:00 MOUTH [place] [facility]) 00 :00 THREE Medical tablet TIMES Branch DAILY WITH MEALS FERROUS No [id number] TAKE ONE [facility] [place] SULFATE 325 8-13 -24 TABLET BY it y of mg (65 mg 00:00: 00:00 MOUTH [place] iron) 00 :00 THREE Medical tablet TIMES Branch DAILY WITH MEALS FERROUS No [id number] TAKE ONE [facility] [place] SULFATE 325 8-13 -24 TABLET BY it y of mg (65 mg 00:00: 00:00 MOUTH [place] iron) 00 :00 THREE Medical tablet TIMES Branch DAILY WITH MEALS FERROUS No [id number] TAKE ONE [facility] [place] SULFATE 325 8-13 -24 TABLET BY it y of mg (65 mg 00:00: 00:00 MOUTH [place] iron) 00 :00 THREE Medical tablet TIMES Branch DAILY WITH MEALS FERROUS No [id number] TAKE ONE [facility] [place] SULFATE 325 8-13 -24 TABLET BY it y of mg (65 mg 00:00: 00:00 MOUTH [place] iron) 00 :00 THREE Medical tablet TIMES Branch DAILY WITH MEALS FERROUS No [id number] TAKE ONE [facility] [place] SULFATE 325 8-13 -24 TABLET BY it y of mg (65 mg 00:00: 00:00 MOUTH [place] [facility]) 00 :00 THREE Medical tablet TIMES Branch DAILY WITH MEALS FERROUS No [id number] TAKE ONE [facility] SULFATE 325 8-13 -24 TABLET BY it y of mg (65 mg 00:00: 00:00 MOUTH [place] iron) 00 :00 THREE Medical tablet TIMES Branch DAILY WITH MEALS FERROUS No [id number] TAKE ONE [facility] SULFATE 325 813 [...] (two) Branch injection weeks. acetaminoph 2020- No [id number] 650mg Take 1 [facility] 650 mg 11-04 tablet by [facility] of CR tablet 00:00: 00:00 mouth [place] 00 :00 every 8 Medical (eight) Branch hours as needed for Pain. acetaminoph 2020- No [id number] 650mg Take 1 [facility] en 650 mg 11-04 tablet by ity of CR tablet 00:00: 00:00 mouth [place] 00 :00 every 8 Medical (eight) Branch hours as needed for Pain. acetaminoph 2020- No [id number] 650mg Take 1 [facility] en 650 mg 11-04 tablet by ity of CR tablet 00:00: 00:00 mouth [place] 00 :00 every 8 Medical (eight) Branch hours as needed for Pain. acetaminoph 2020- No [id number] 650mg Take 1 [facility] en 650 mg 11-0425 tablet by ity of CR tablet 00:00: 00:00 mouth [place] 00 :00 every 8 Medical (eight) Branch hours as needed for Pain. acetaminoph 2020- No [id number] 650mg Take 1 [facility] en 650 mg 11-04 tablet by ity of CR tablet 00:00: 00:00 mouth [place] 00 :00 every 8 Medical (eight) Branch hours as needed for Pain. acetaminoph 1- No [id number] 650mg Take 1 [facility] en 650 mg 11-0425 tablet by ity of CR tablet 00:00: 00:00 mouth [place] 00 :00 every 8 Medical (eight) Branch hours as needed for Pain. acetaminoph 1- No [id number] 650mg Take 1 [facility] en 650 mg 11-0425 tablet by ity of CR tablet 00:00: 00:00 mouth [place] 00 :00 every 8 Medical (eight) Branch hours as needed for Pain. coQ10, Yes [id number] 1{capsu Take 1 U nivers ubiquinol, 1-16 le} capsule by ity of 100 mg Cap 00:00: mouth [place] 00 daily. Medical Branch coQ10, Yes [id number] 1{capsu Take 1 U nivers ubiquinol, 1-16 le} capsule by ity of 100 mg Cap 00:00: mouth [place] 00 daily. Medical Branch coQ10, Yes [id number] 1{capsu Take 1 U nivers ubiquinol, 1-16 le} capsule by ity of 100 mg Cap 00:00: mouth [place] 00 daily. Medical Branch coQ10, Yes [id number] 1{capsu Take 1 U nivers ubiquinol, 1-16 le} capsule by ity of 100 mg Cap 00:00: mouth [place] 00 daily. Medical Branch coQ10, Yes [id number] 1{capsu Take 1 U nivers ubiquinol, 1-16 le} capsule by ity of 100 mg Cap 00:00: mouth [place] 00 daily. Medical Branch coQ10, Yes [id number] 1{capsu Take 1 U nivers ubiquinol, 1-16 le} capsule by ity of 100 mg Cap 00:00: mouth [place] 00 daily. Medical Branch coQ10, Yes [id number] 1{capsu Take 1 U nivers ubiquinol, 1-16 le} capsule by ity of 100 mg Cap 00:00: mouth [place] 00 daily. Medical Branch coQ10, Yes [id number] 1{capsu Take 1 U nivers ubiquinol, 1-16 le} capsule by ity of 100 mg Cap 00:00: mouth [place] 00 daily. Medical Branch coQ10, Yes [id number] 1{capsu Take 1 U nivers ubiquinol, 1-16 le} capsule by ity of 100 mg Cap 00:00: mouth [place] 00 daily. Medical Branch coQ10, Yes [id number] 1{capsu Take 1 U nivers ubiquinol, 1-16 le} capsule by ity of 100 mg Cap 00:00: mouth [place] 00 daily. [facility] coQ10, Yes [id number] 1{capsu Take 1 U nivers ubiquinol, 1-16 le} capsule by ity of 100 mg Cap 00:00: mouth [place] 00 daily. [facility] coQ10, Yes [id number] 1{capsu Take 1 U nivers ubiquinol, 1-16 le} capsule by ity of 100 mg Cap 00:00: mouth [place] 00 daily. [facility] coQ10, Yes [id number] 1{capsu Take 1 U nivers ubiquinol, 1-16 le} capsule by ity of 100 mg Cap 00:00: mouth [place] 00 daily. [facility] coQ10, Yes [id number] 1{capsu Take 1 U nivers ubiquinol, 1-16 le} capsule by ity of 100 mg Cap 00:00: mouth [place] 00 daily. [facility] coQ10, Yes [id number] 1{capsu Take 1 U nivers ubiquinol, 1-16 le} capsule by ity of 100 mg Cap 00:00: mouth [place] 00 daily. [facility] coQ10, Yes [id number] 1{capsu Take 1 U nivers ubiquinol, 1-16 le} capsule by ity of 100 mg Cap 00:00: mouth [place] 00 daily. [facility] coQ10, Yes [id number] 1{capsu Take 1 U nivers ubiquinol, 1-16 le} capsule by ity of 100 mg Cap 00:00: mouth [place] 00 daily. [facility] coQ10, Yes [id number] 1{capsu Take 1 U nivers ubiquinol, 1-16 le} capsule by ity of 100 mg Cap 00:00: mouth [place] 00 daily. [facility] coQ10, Yes [id number] 1{capsu Take 1 U nivers ubiquinol, 1-16 le} capsule by ity of 100 mg Cap 00:00: mouth [place] 00 daily. [facility] coQ10, Yes [id number] 1{capsu Take 1 U nivers ubiquinol, 1-16 le} capsule by ity of 100 mg Cap 00:00: mouth [place] 00 daily. [facility] coQ10, Yes [id number] 1{capsu Take 1 U nivers ubiquinol, 1-16 le} capsule by ity of 100 mg Cap 00:00: mouth [place] 00 daily. [facility] coQ10, Yes [id number] 1{capsu Take 1 U nivers ubiquinol, 1-16 le} capsule by ity of 100 mg Cap 00:00: mouth [place] 00 daily. [facility] coQ10, Yes [id number] 1{capsu Take 1 U nivers ubiquinol, 1-16 le} capsule by ity of 100 mg Cap 00:00: mouth [place] 00 daily. [facility] coQ10, Yes [id number] 1{capsu Take 1 U nivers ubiquinol, 1-16 le} capsule by ity of 100 mg Cap 00:00: mouth [place] 00 daily. [facility] coQ10, Yes [id number] 1{capsu Take 1 U nivers ubiquinol, 1-16 le} capsule by ity of 100 mg Cap 00:00: mouth [place] 00 daily. [facility] coQ10, Yes [id number] 1{capsu Take 1 U nivers ubiquinol, 1-16 le} capsule by ity of 100 mg Cap 00:00: mouth [place] 00 daily. [facility] coQ10, Yes [id number] 1{capsu Take 1 U nivers ubiquinol, 1-16 le} capsule by ity of 100 mg Cap 00:00: mouth [place] 00 daily. [facility] coQ10, Yes [id number] 1{capsu Take 1 U nivers ubiquinol, 1-16 le} capsule by ity of 100 mg Cap 00:00: mouth [place] 00 daily. [facility] coQ10, Yes [id number] 1{capsu Take 1 U nivers ubiquinol, 1-16 le} capsule by ity of 100 mg Cap 00:00: mouth [place] 00 daily. [facility] coQ10, Yes [id number] 1{capsu Take 1 U nivers ubiquinol, 1-16 le} capsule by ity of 100 mg Cap 00:00: mouth [place] 00 daily. [facility] coQ10, Yes [id number] 1{capsu Take 1 U nivers ubiquinol, 1-16 le} capsule by ity of 100 mg Cap 00:00: mouth [place] 00 daily. [facility] coQ10, Yes [id number] 1{capsu Take 1 U nivers ubiquinol, 1-16 le} capsule by ity of 100 mg Cap 00:00: mouth [place] 00 daily. [facility] coQ10, Yes [id number] 1{capsu Take 1 U nivers ubiquinol, 1-16 le} capsule by ity of 100 mg Cap 00:00: mouth [place] 00 daily. [facility] coQ10, Yes [id number] 1{capsu Take 1 U nivers ubiquinol, 1-16 le} capsule by ity of 100 mg Cap 00:00: mouth [place] 00 daily. [facility] coQ10, Yes [id number] 1{capsu Take 1 U nivers ubiquinol, 1-16 le} capsule by ity of 100 mg Cap 00:00: mouth [place] 00 daily. [facility] coQ10, Yes [id number] 1{capsu Take 1 U nivers ubiquinol, 1-16 le} capsule by ity of 100 mg Cap 00:00: mouth [place] 00 daily. [facility] coQ10, Yes [id number] 1{capsu Take 1 U nivers ubiquinol, 1-16 le} capsule by ity of 100 mg Cap 00:00: mouth [place] 00 daily. [facility] coQ10, Yes [id number] 1{capsu Take 1 U nivers ubiquinol, 1-16 le} capsule by ity of 100 mg Cap 00:00: mouth [place] 00 daily. [facility] coQ10, Yes [id number] 1{capsu Take 1 U nivers ubiquinol, 1-16 le} capsule by ity of 100 mg Cap 00:00: mouth [place] 00 daily. [facility] coQ10, Yes [id number] 1{capsu Take 1 U nivers ubiquinol, 1-16 le} capsule by ity of 100 mg Cap 00:00: mouth [place] 00 daily. [facility] coQ10, Yes [id number] 1{capsu Take 1 U nivers ubiquinol, 1-16 le} capsule by ity of 100 mg Cap 00:00: mouth [place] 00 daily. [facility] coQ10, Yes [id number] 1{capsu Take 1 U nivers ubiquinol, 1-16 le} capsule by ity of 100 mg Cap 00:00: mouth [place] 00 daily. [facility] coQ10, Yes [id number] 1{capsu Take 1 U nivers ubiquinol, 1-16 le} capsule by ity of 100 mg Cap 00:00: mouth [place] 00 daily. [facility] coQ10, Yes [id number] 1{capsu Take 1 U nivers ubiquinol, 1-16 le} capsule by ity of 100 mg Cap 00:00: mouth [place] 00 daily. [facility] coQ10, Yes [id number] 1{capsu Take 1 U nivers ubiquinol, 1-16 le} capsule by ity of 100 mg Cap 00:00: mouth [place] 00 daily. [facility] coQ10, Yes [id number] 1{capsu Take 1 U nivers ubiquinol, 1-16 le} capsule by ity of 100 mg Cap 00:00: mouth [place] 00 daily. [facility] coQ10, Yes [id number] 1{capsu Take 1 U nivers ubiquinol, 1-16 le} capsule by ity of 100 mg Cap 00:00: mouth [place] 00 daily. [facility] coQ10, Yes [id number] 1{capsu Take 1 U nivers ubiquinol, 1-16 le} capsule by ity of 100 mg Cap 00:00: mouth [place] 00 daily. [facility] coQ10, Yes [id number] 1{capsu Take 1 U nivers ubiquinol, 1-16 le} capsule by ity of 100 mg Cap 00:00: mouth [place] 00 daily. [facility] coQ10, Yes [id number] 1{capsu Take 1 U nivers ubiquinol, 1-16 le} capsule by ity of 100 mg Cap 00:00: mouth [place] 00 daily. [facility] coQ10, Yes [id number] 1{capsu Take 1 U nivers ubiquinol, 1-16 le} capsule by ity of 100 mg Cap 00:00: mouth [place] 00 daily. [facility] coQ10, Yes [id number] 1{capsu Take 1 U nivers ubiquinol, 1-16 le} capsule by ity of 100 mg Cap 00:00: mouth [place] 00 daily. [facility] coQ10, Yes [id number] 1{capsu Take 1 U nivers ubiquinol, 1-16 le} capsule by ity of 100 mg Cap 00:00: mouth [place] 00 daily. [facility] coQ10, Yes [id number] 1{capsu Take 1 U nivers ubiquinol, 1-16 le} capsule by ity of 100 mg Cap 00:00: mouth [place] 00 daily. [facility] coQ10, Yes [id number] 1{capsu Take 1 U nivers ubiquinol, 1-16 le} capsule by ity of 100 mg Cap 00:00: mouth [place] 00 daily. [facility] coQ10, Yes [id number] 1{capsu Take 1 U nivers ubiquinol, 1-16 le} capsule by ity of 100 mg Cap 00:00: mouth [place] 00 daily. [facility] coQ10, Yes [id number] 1{capsu Take 1 U nivers ubiquinol, 1-16 le} capsule by ity of 100 mg Cap 00:00: mouth [place] 00 daily. [facility] coQ10, Yes [id number] 1{capsu Take 1 U nivers ubiquinol, 1-16 le} capsule by ity of 100 mg Cap 00:00: mouth [place] 00 daily. [facility] coQ10, Yes [id number] 1{capsu Take 1 U nivers ubiquinol, 1-16 le} capsule by ity of 100 mg Cap 00:00: mouth [place] 00 daily. [facility] coQ10, Yes [id number] 1{capsu Take 1 U nivers ubiquinol, 1-16 le} capsule by ity of 100 mg Cap 00:00: mouth [place] 00 daily. [facility] coQ10, Yes [id number] 1{capsu Take 1 U nivers ubiquinol, 1-16 le} capsule by ity of 100 mg Cap 00:00: mouth [place] 00 daily. [facility] coQ10, Yes [id number] 1{capsu Take 1 U nivers ubiquinol, 1-16 le} capsule by ity of 100 mg Cap 00:00: mouth [place] 00 daily. [facility] coQ10, Yes [id number] 1{capsu Take 1 U nivers ubiquinol, 1-16 le} capsule by ity of 100 mg Cap 00:00: mouth [place] 00 daily. [facility] coQ10, Yes [id number] 1{capsu Take 1 U nivers ubiquinol, 1-16 le} capsule by ity of 100 mg Cap 00:00: mouth [place] 00 daily. [facility] coQ10, Yes [id number] 1{capsu Take 1 U nivers ubiquinol, 1-16 le} capsule by ity of 100 mg Cap 00:00: mouth [place] 00 daily. [facility] coQ10, Yes [id number] 1{capsu Take 1 U nivers ubiquinol, 1-16 le} capsule by ity of 100 mg Cap 00:00: mouth [place] 00 daily. [facility] coQ10, Yes [id number] 1{capsu Take 1 U nivers ubiquinol, 1-16 le} capsule by ity of 100 mg Cap 00:00: mouth [place] 00 daily. [facility] coQ10, Yes [id number] 1{capsu Take 1 U nivers ubiquinol, 1-16 le} capsule by ity of 100 mg Cap 00:00: mouth [place] 00 daily. [facility] coQ10, Yes [id number] 1{capsu Take 1 U nivers ubiquinol, 1-16 le} capsule by ity of 100 mg Cap 00:00: mouth [place] 00 daily. [facility] coQ10, Yes [id number] 1{capsu Take 1 U nivers ubiquinol, 1-16 le} capsule by ity of 100 mg Cap 00:00: mouth [place] 00 daily. [facility] coQ10, Yes [id number] 1{capsu Take 1 U nivers ubiquinol, 1-16 le} capsule by ity of 100 mg Cap 00:00: mouth [place] 00 daily. [facility] coQ10, Yes [id number] 1{capsu Take 1 U nivers ubiquinol, 1-16 le} capsule by ity of 100 mg Cap 00:00: mouth [place] 00 daily. [facility] coQ10, Yes [id number] 1{capsu Take 1 U nivers ubiquinol, 1-16 le} capsule by ity of 100 mg Cap 00:00: mouth [place] 00 daily. [facility] coQ10, Yes [id number] 1{capsu Take 1 U nivers ubiquinol, 1-16 le} capsule by ity of 100 mg Cap 00:00: mouth [place] 00 daily. [facility] coQ10, Yes [id number] 1{capsu Take 1 U nivers ubiquinol, 1-16 le} capsule by ity of 100 mg Cap 00:00: mouth [place] 00 daily. [facility] coQ10, Yes [id number] 1{capsu Take 1 U nivers ubiquinol, 1-16 le} capsule by ity of 100 mg Cap 00:00: mouth [place] 00 daily. [facility] coQ10, Yes [id number] 1{capsu Take 1 U nivers ubiquinol, 1-16 le} capsule by ity of 100 mg Cap 00:00: mouth [place] 00 daily. [facility] coQ10, Yes [id number] 1{capsu Take 1 U nivers ubiquinol, 1-16 le} capsule by ity of 100 mg Cap 00:00: mouth [place] 00 daily. [facility] coQ10, Yes [id number] 1{capsu Take 1 U nivers ubiquinol, 1-16 le} capsule by ity of 100 mg Cap 00:00: mouth [place] 00 daily. [facility] coQ10, Yes [id number] 1{capsu Take 1 U nivers ubiquinol, 1-16 le} capsule by ity of 100 mg Cap 00:00: mouth [place] 00 daily. [facility] coQ10, Yes [id number] 1{capsu Take 1 U nivers ubiquinol, 1-16 le} capsule by ity of 100 mg Cap 00:00: mouth [place] 00 daily. [facility] coQ10, Yes [id number] 1{capsu Take 1 U nivers ubiquinol, 1-16 le} capsule by ity of 100 mg Cap 00:00: mouth [place] 00 daily. [facility] coQ10, Yes [id number] 1{capsu Take 1 U nivers ubiquinol, 1-16 le} capsule by ity of 100 mg Cap 00:00: mouth [place] 00 daily. [facility] coQ10, Yes [id number] 1{capsu Take 1 U nivers ubiquinol, 1-16 le} capsule by ity of 100 mg Cap 00:00: mouth [place] 00 daily. [facility] coQ10, Yes [id number] 1{capsu Take 1 U nivers ubiquinol, 1-16 le} capsule by ity of 100 mg Cap 00:00: mouth [place] 00 daily. [facility] coQ10, Yes [id number] 1{capsu Take 1 U nivers ubiquinol, 1-16 le} capsule by ity of 100 mg Cap 00:00: mouth [place] 00 daily. [facility] coQ10, Yes [id number] 1{capsu Take 1 U nivers ubiquinol, 1-16 le} capsule by ity of 100 mg Cap 00:00: mouth [place] 00 daily. [facility] coQ10, Yes [id number] 1{capsu Take 1 U nivers ubiquinol, 1-16 le} capsule by ity of 100 mg Cap 00:00: mouth [place] 00 daily. [facility] coQ10, Yes [id number] 1{capsu Take 1 U nivers ubiquinol, 1-16 le} capsule by ity of 100 mg Cap 00:00: mouth [place] 00 daily. [facility] coQ10, Yes [id number] 1{capsu Take 1 U nivers ubiquinol, 1-16 le} capsule by ity of 100 mg Cap 00:00: mouth [place] 00 daily. [facility] coQ10, Yes [id number] 1{capsu Take 1 U nivers ubiquinol, 1-16 le} capsule by ity of 100 mg Cap 00:00: mouth [place] 00 daily. [facility] coQ10, Yes [id number] 1{capsu Take 1 U nivers ubiquinol, 1-16 le} capsule by ity of 100 mg Cap 00:00: mouth [place] 00 daily. [facility] coQ10, Yes [id number] 1{capsu Take 1 U nivers ubiquinol, 1-16 le} capsule by ity of 100 mg Cap 00:00: mouth [place] 00 daily. [facility] coQ10, Yes [id number] 1{capsu Take 1 U nivers ubiquinol, 1-16 le} capsule by ity of 100 mg Cap 00:00: mouth [place] 00 daily. [facility] coQ10, Yes [id number] 1{capsu Take 1 U nivers ubiquinol, 1-16 le} capsule by ity of 100 mg Cap 00:00: mouth [place] 00 daily. [facility] coQ10, Yes [id number] 1{capsu Take 1 U nivers ubiquinol, 1-16 le} capsule by ity of 100 mg Cap 00:00: mouth [place] 00 daily. [facility] coQ10, Yes [id number] 1{capsu Take 1 U nivers ubiquinol, 1-16 le} capsule by ity of 100 mg Cap 00:00: mouth [place] 00 daily. [facility] coQ10, Yes [id number] 1{capsu Take 1 U nivers ubiquinol, 1-16 le} capsule by ity of 100 mg Cap 00:00: mouth [place] 00 daily. [facility] coQ10, Yes [id number] 1{capsu Take 1 U nivers ubiquinol, 1-16 le} capsule by ity of 100 mg Cap 00:00: mouth [place] 00 daily. [facility] coQ10, Yes [id number] 1{capsu Take 1 U nivers ubiquinol, 1-16 le} capsule by ity of 100 mg Cap 00:00: mouth [place] 00 daily. [facility] coQ10, Yes [id number] 1{capsu Take 1 U nivers ubiquinol, 1-16 le} capsule by ity of 100 mg Cap 00:00: mouth [place] 00 daily. [facility] coQ10, Yes [id number] 1{capsu Take 1 U nivers ubiquinol, 1-16 le} capsule by ity of 100 mg Cap 00:00: mouth [place] 00 daily. [facility] coQ10, Yes [id number] 1{capsu Take 1 U nivers ubiquinol, 1-16 le} capsule by ity of 100 mg Cap 00:00: mouth [place] 00 daily. [facility] coQ10, Yes [id number] 1{capsu Take 1 U nivers ubiquinol, 1-16 le} capsule by ity of 100 mg Cap 00:00: mouth [place] 00 daily. [facility] coQ10, Yes [id number] 1{capsu Take 1 U nivers ubiquinol, 1-16 le} capsule by ity of 100 mg Cap 00:00: mouth [place] 00 daily. [facility] coQ10, Yes [id number] 1{capsu Take 1 U nivers ubiquinol, 1-16 le} capsule by ity of 100 mg Cap 00:00: mouth [place] 00 daily. [facility] coQ10, Yes [id number] 1{capsu Take 1 U nivers ubiquinol, 1-16 le} capsule by ity of 100 mg Cap 00:00: mouth [place] 00 daily. [facility] coQ10, Yes [id number] 1{capsu Take 1 U nivers ubiquinol, 1-16 le} capsule by ity of 100 mg Cap 00:00: mouth [place] 00 daily. [facility] coQ10, Yes [id number] 1{capsu Take 1 U nivers ubiquinol, 1-16 le} capsule by ity of 100 mg Cap 00:00: mouth [place] 00 daily. [facility] coQ10, Yes [id number] 1{capsu Take 1 U nivers ubiquinol, 1-16 le} capsule by ity of 100 mg Cap 00:00: mouth [place] 00 daily. [facility] coQ10, Yes [id number] 1{capsu Take 1 U nivers ubiquinol, 1-16 le} capsule by ity of 100 mg Cap 00:00: mouth [place] 00 daily. [facility] coQ10, Yes [id number] 1{capsu Take 1 [facility] nivers ubiquinol, 1-16 le} capsule by ity of 100 mg Cap 00:00: mouth [place] 00 daily. [facility] coQ10, Yes [id number] 1{capsu Take 1 U nivers ubiquinol, 1-16 le} capsule by ity of 100 mg Cap 00:00: mouth [place] 00 daily. [facility] coQ10, Yes [id number] 1{capsu Take 1 U nivers ubiquinol, 1-16 le} capsule by ity of 100 mg Cap 00:00: mouth [place] 00 daily. [facility] coQ10, Yes [id number] 1{capsu Take 1 U nivers ubiquinol, 1-16 le} capsule by ity of 100 mg Cap 00:00: mouth [place] 00 daily. [facility] coQ10, Yes [id number] 1{capsu Take 1 U nivers ubiquinol, 1-16 le} capsule by ity of 100 mg Cap 00:00: mouth [place] 00 daily. [facility] coQ10, Yes [id number] 1{capsu Take 1 U nivers ubiquinol, 1-16 le} capsule by ity of 100 mg Cap 00:00: mouth [place] 00 daily. [facility] coQ10, Yes [id number] 1{capsu Take 1 U nivers ubiquinol, 1-16 le} capsule by ity of 100 mg Cap 00:00: mouth [place] 00 daily. [facility] coQ10, Yes [id number] 1{capsu Take 1 U nivers ubiquinol, 1-16 le} capsule by ity of 100 mg Cap 00:00: mouth [place] 00 daily. [facility] coQ10, Yes [id number] 1{capsu Take 1 U nivers ubiquinol, 1-16 le} capsule by ity of 100 mg Cap 00:00: mouth [place] 00 daily. [facility] coQ10, Yes [id number] 1{capsu Take 1 U nivers ubiquinol, 1-16 le} capsule by ity of 100 mg Cap 00:00: mouth [place] 00 daily. [facility] coQ10, Yes [id number] 1{capsu Take 1 U nivers ubiquinol, 1-16 le} capsule by ity of 100 mg Cap 00:00: mouth [place] 00 daily. [facility] coQ10, Yes [id number] 1{capsu Take 1 U nivers ubiquinol, 1-16 le} capsule by ity of 100 mg Cap 00:00: mouth [place] 00 daily. [facility] coQ10, Yes [id number] 1{capsu Take 1 U nivers ubiquinol, 1-16 le} capsule by ity of 100 mg Cap 00:00: mouth [place] 00 daily. [facility] coQ10, Yes [id number] 1{capsu Take 1 U nivers ubiquinol, 1-16 le} capsule by ity of 100 mg Cap 00:00: mouth [place] 00 daily. [facility] coQ10, Yes [id number] 1{capsu Take 1 [facility] nivers ubiquinol, 1-16 le} capsule by ity of 100 mg Cap 00:00: mouth [place] 00 daily. [facility] coQ10, 2022- No [id number] 1{capsu Take 1 [facility] ubiqu[facility]ol, 1-16 05-25 le} capsule by it y of 100 mg Cap 00:00: 00:00 mouth [place] 00 :00 daily. [facility] coQ10, 2022- No [id number] 1{capsu Take 1 [facility] ubiquinol, 1-16 05-25 le} capsule by it y of 100 mg Cap 00:00: 00:00 mouth [place] 00 :00 daily. [facility] [place] [id number] 1{capsu Take 1 [facility] ubiquinol, 1-16 05-25 le} capsule by it y of 100 mg Cap 00:00: 00:00 mouth [place] 00 :00 daily. [facility] [place] No [id number] 1{capsu Take 1 [facility] ubiquinol, 1-16 05-25 le} capsule by it y of 100 mg Cap 00:00: 00:00 mouth [place] 00 :00 daily. [facility] coQ, 2022- No [id number] 1{capsu Take 1 [facility] ubiquinol, 1-16 05-25 le} capsule by it y of 100 mg Cap 00:00: 00:00 mouth [place] 00 :00 daily. [facility] [place] No [id number] 1{capsu Take 1 [facility] ubiquinol, 1-16 05-25 le} capsule by it y of 100 mg Cap 00:00: 00:00 mouth [place] 00 :00 daily. [facility] coQ, 2022- No [id number] 1{capsu Take 1 [facility] ubiquinol, 1-16 05-25 le} capsule by it y of 100 mg Cap 00:00: 00:00 mouth [place] 00 :00 daily. [facility] coQ, 2022- No [id number] 1{capsu Take 1 [facility] ubiquinol, 1-16 05-25 le} capsule by it y of 100 mg Cap 00:00: 00:00 mouth [place] 00 :00 daily. [facility] coQ10, 2022- No [id number] 1{capsu Take 1 [facility] ubiquinol, 1-16 05-25 le} capsule by it y of 100 mg Cap 00:00: 00:00 mouth [place] 00 :00 daily. [facility] coQ, 2022- No [id number] 1{capsu Take 1 [facility] ubiquinol, 1-16 05-25 le} capsule by it y of 100 mg Cap 00:00: 00:00 mouth [place] 00 :00 daily. [facility] coQ, 2022- No [id number] 1{capsu Take 1 [facility] ubiquinol, 1-16 05-25 le} capsule by it y of 100 mg Cap 00:00: 00:00 mouth [place] 00 :00 daily. [facility] coQ10, 2022- No [id number] 1{capsu Take 1 [facility] ubiquinol, 1-16 05-25 le} capsule by it y of 100 mg Cap 00:00: 00:00 mouth [place] 00 :00 daily. [facility] coQ, 2022- No [id number] 1{capsu Take 1 [facility] ubiquinol, 1-16 05-25 le} capsule by it y of 100 mg Cap 00:00: 00:00 mouth [place] 00 :00 daily. [facility] coQ10, 2022- No [id number] 1{capsu Take 1 [facility] ubiquinol, 1-16 05-25 le} capsule by it y of 100 mg Cap 00:00: 00:00 mouth [place] 00 :00 daily. [facility] coQ, 2022- No [id number] 1{capsu Take 1 [facility] ubiquinol, 1-16 05-25 le} capsule by it y of 100 mg Cap 00:00: 00:00 mouth [place] 00 :00 daily. [facility] coQ10, 2022- No [id number] 1{capsu Take 1 [facility] ubiquinol, 1-16 05-25 le} capsule by it y of 100 mg Cap 00:00: 00:00 mouth [place] 00 :00 daily. [facility] coQ10, 2022- No [id number] 1{capsu Take 1 [facility] ubiquinol, 1-16 05-25 le} capsule by it y of 100 mg Cap 00:00: 00:00 mouth [place] 00 :00 daily. [facility] coQ10, 2022- No [id number] 1{capsu Take 1 [facility] ubiquinol, 1-16 05-25 le} capsule by it y of 100 mg Cap 00:00: 00:00 mouth [place] 00 :00 daily. [facility] coQ10, 2022- No [id number] 1{capsu Take 1 [facility] ubiquinol, 1-16 05-25 le} capsule by it y of 100 mg Cap 00:00: 00:00 mouth [place] 00 :00 daily. [facility] coQ10, 2022- No [id number] 1{capsu Take 1 [facility] ubiquinol, 1-16 05-25 le} capsule by it y of 100 mg Cap 00:00: 00:00 mouth [place] 00 :00 daily. [facility] coQ, 3- No [id number] 1{capsu Take 1 [facility] ubiquinol, 1-16 05-25 le} capsule by it y of 100 mg Cap 00:00: 00:00 mouth [place] 00 :00 daily. [facility] coQ, 3- No [id number] 1{capsu Take 1 [facility] ubiquinol, 1-16 05-25 le} capsule by it y of 100 mg Cap 00:00: 00:00 mouth [place] 00 :00 daily. [facility] coQ, 3- No [id number] 1{capsu Take 1 [facility] ubiquinol, 1-16 05-25 le} capsule by it y of 100 mg Cap 00:00: 00:00 mouth [place] 00 :00 daily. [facility] coQ, 3- No [id number] 1{capsu Take 1 [facility] ubiquinol, 1-16 05-25 le} capsule by it y of 100 mg Cap 00:00: 00:00 mouth [place] 00 :00 daily. [facility] coQ, 3- No [id number] 1{capsu Take 1 [facility] ubiquinol, 1-16 05-25 le} capsule by it y of 100 mg Cap 00:00: 00:00 mouth [place] 00 :00 daily. [facility] coQ, 3- No [id number] 1{capsu Take 1 [facility] ubiquinol, 1-16 05-25 le} capsule by it y of 100 mg Cap 00:00: 00:00 mouth [place] 00 :00 daily. [facility] loratadine 2017 Yes [id number] 10mg Take 1 [facility] 10 mg 1-23 tablet by ity of tablet 00:00: mouth [place] 00 daily. [facility] loratadine Yes [id number] 10mg Take 1 [facility] 10 mg 1-23 tablet by ity of tablet 00:00: mouth [place] 00 daily. [facility] loratadine Yes [id number] 10mg Take 1 [facility] 10 mg 1-23 tablet by ity of tablet 00:00: mouth [place] 00 daily. [facility] loratadine Yes [id number] 10mg Take 1 [facility] 10 mg 1-23 tablet by ity of tablet 00:00: mouth [place] 00 daily. [facility] loratadine Yes [id number] 10mg Take 1 [facility] 10 mg 1-23 tablet by ity of tablet 00:00: mouth [place] 00 daily. [facility] loratadine 2021- No [id number] 10mg Take 1 [facility] 10 mg 1-23 06-13 tablet by ity of tablet 00:00: 00:00 mouth [place] 00 :00 daily. [facility] loratadine 2021- No [id number] 10mg Take 1 [facility] 10 mg 1-23 06-13 tablet by ity of tablet 00:00: 00:00 mouth [place] 00 :00 daily. [facility] loratadine 2021- No [id number] 10mg Take 1 [facility] 10 mg 1-23 06-13 tablet by ity of tablet 00:00: 00:00 mouth [place] 00 :00 daily. [facility] loratadine 2021- No [id number] 10mg Take 1 [facility] 10 mg 1-23 06-13 tablet by ity of tablet 00:00: 00:00 mouth [place] 00 :00 daily. [facility] loratadine 2021- No [id number] 10mg Take 1 [facility] 10 mg 1-23 06-13 tablet by ity of tablet 00:00: 00:00 mouth [place] 00 :00 daily. [facility] loratadine 2021- No [id number] 10mg Take 1 [facility] 10 mg 1-23 06-13 tablet by ity of tablet 00:00: 00:00 mouth [place] 00 :00 daily. [facility] loratadine 2021- No [id number] 10mg Take 1 [facility] 10 mg 1-23 06-13 tablet by ity of tablet 00:00: 00:00 mouth [place] 00 :00 daily. [facility] loratadine 2021- No [id number] 10mg Take 1 [facility] 10 mg 1-23 06-13 tablet by ity of tablet 00:00: 00:00 mouth [place] 00 :00 daily. [facility] [facility]ine 2021- No [id number] 10mg Take 1 [facility] 10 mg 1-23 06-13 tablet by ity of tablet 00:00: 00:00 mouth [place] 00 :00 daily. [facility] loratadine 2021- No [id number] 10mg Take 1 [facility] 10 mg 1-23 06-13 tablet by ity of tablet 00:00: 00:00 mouth [place] 00 :00 daily. [facility] loratadine 2021- No [id number] 10mg Take 1 [facility] 10 mg 1-23 06-13 tablet by ity of tablet 00:00: 00:00 mouth [place] 00 :00 daily. [facility] loratadine 2021- No [id number] 10mg Take 1 [facility] 10 mg 1-23 06-13 tablet by ity of tablet 00:00: 00:00 mouth [place] 00 :00 daily. [facility] loratadine 2021- No [id number] 10mg Take 1 [facility] 10 mg 1-23 06-13 tablet by ity of tablet 00:00: 00:00 mouth [place] 00 :00 daily. [facility] loratadine 2021- No [id number] 10mg Take 1 [facility] 10 mg 1-23 06-13 tablet by ity of tablet 00:00: 00:00 mouth [place] 00 :00 daily. [facility] loratadine 2021- No [id number] 10mg Take 1 [facility] 10 mg 1-23 06-13 tablet by ity of tablet 00:00: 00:00 mouth [place] 00 :00 daily. [facility] loratadine 2021- No [id number] 10mg Take 1 [facility] 10 mg 1-23 06-13 tablet by ity of tablet 00:00: 00:00 mouth [place] 00 :00 daily. [facility] loratadine 2021- No [id number] 10mg Take 1 [facility] 10 mg 1-23 06-13 tablet by ity of tablet 00:00: 00:00 mouth [place] 00 :00 daily. [facility] loratadine 2021- No [id number] 10mg Take 1 [facility] 10 mg 1-23 06-13 tablet by ity of tablet 00:00: 00:00 mouth [place] 00 :00 daily. [facility] loratadine 2021- No [id number] 10mg Take 1 [facility] 10 mg 1-23 06-13 tablet by ity of tablet 00:00: 00:00 mouth [place] 00 :00 daily. [facility] loratadine 2021- No [id number] 10mg Take 1 [facility] 10 mg 1-23 06-13 tablet by ity of tablet 00:00: 00:00 mouth [place] 00 :00 daily. [facility] loratadine 2021- No [id number] 10mg Take 1 [facility] 10 mg 10-18-13 tablet by ity of tablet 00:00: 00:00 mouth [place] 00 :00 daily. [facility] loratadine 2021- No [id number] 10mg Take 1 [facility] 10 mg 10-18-13 tablet by ity of tablet 00:00: 00:00 mouth [place] 00 :00 daily. [facility] loratadine 2021- No [id number] 10mg Take 1 [facility] 10 mg -18 03-13 tablet by ity of tablet 00:00: 00:00 mouth [place] 00 :00 daily. [facility] loratadine 2021- No [id number] 10mg Take 1 [facility] 10 mg 10-18-13 tablet by ity of tablet 00:00: 00:00 mouth [place] 00 :00 daily. [facility] Immunizations Ordered Immunization Filled Date Status Comments Sour ce Name Immunization Name SARS-COV-2 COVID-2022-07-27 Completed [facility] of [facility] VACCINE 00:00:00 [facility] 12 YRS+, BIVALENT Branch 0.3ML, IM, (PFIZER FOUNTAIN TOP BOOSTER) SARS-COV-2 COVID-19 2022-07-27 Completed [facility]ive rsity of [facility]CR[facility] VACCINE 00:00:00 [facility] 12 YRS+, BIVALENT Branch 0.3ML, IM, (PFIZER FOUNTAIN TOP BOOSTER) SARS-COV-2 COVID-19 2022-07-27 Completed [facility]ive rsity of [facility]ELLE-SUCROSE VACCINE 00:00:00 [facility] 12 YRS+, BIVALENT Branch 0.3ML, IM, (PFIZER FOUNTAIN TOP BOOSTER) SARS-COV-2 COVID-19 2022-07-27 Completed [facility]ive rsity of [facility]ELLE-SUCROSE VACCINE 00:00:00 [facility] 12 YRS+, BIVALENT Branch 0.3ML, IM, (PFIZER FOUNTAIN TOP BOOSTER) SARS-COV-2 COVID-19 2022-07-27 Completed Unive rsity of [facility]ELLE-SUCROSE VACCINE 00:00:00 [facility] 12 YRS+, BIVALENT Branch 0.3ML, IM, (PFIZER FOUNTAIN TOP BOOSTER) SARS-COV-2 COVID-19 2022-07-27 Completed [facility]ive rsity of [facility]ELLE-SUCROSE VACCINE 00:00:00 [facility] 12 YRS+, BIVALENT Branch 0.3ML, IM, (PFIZER FOUNTAIN TOP BOOSTER) SARS-COV-2 COVID-19 2022-07-27 Completed Unive rsity of [facility]ELLE-SUCROSE VACCINE 00:00:00 [facility] 12 YRS+, BIVALENT Branch 0.3ML, IM, (PFIZER FOUNTAIN TOP BOOSTER) SARS-COV-2 COVID-19 2022-07-27 Completed Unive rsity of [facility]ELLE-SUCROSE VACCINE 00:00:00 [facility] 12 YRS+, BIVALENT Branch 0.3ML, IM, (PFIZER FOUNTAIN TOP BOOSTER) SARS-COV-2 COVID-19 2022-07-27 Completed Unive rsity of [facility]ELLE-SUCROSE VACCINE 00:00:00 [facility] 12 YRS+, BIVALENT Branch 0.3ML, IM, (PFIZER FOUNTAIN TOP BOOSTER) SARS-COV-2 COVID-19 2022-07-27 Completed Unive rsity of [facility]STELLE-SUCROSE VACCINE 00:00:00 [facility] 12 YRS+, BIVALENT Branch 0.3ML, IM, (PFIZER FOUNTAIN TOP BOOSTER) SARS-COV-2 COVID-19 2022-07-27 Completed Unive rsity of [facility]STELLE-SUCROSE VACCINE 00:00:00 [facility] 12 YRS+, BIVALENT Branch 0.3ML, IM, (PFIZER FOUNTAIN TOP BOOSTER) SARS-COV-2 COVID-19 2022-07-27 Completed Unive rsity of [facility]ELLE-SUCROSE VACCINE 00:00:00 [facility] 12 YRS+, BIVALENT Branch 0.3ML, IM, (PFIZER FOUNTAIN TOP BOOSTER) SARS-COV-2 COVID-19 2022-07-27 Completed Unive rsity of [facility]STELLE-SUCROSE VACCINE 00:00:00 [facility] 12 YRS+, BIVALENT Branch 0.3ML, IM, (PFIZER FOUNTAIN TOP BOOSTER) SARS-COV-2 COVID-19 2022-07-27 Completed Unive rsity of [facility]STELLE-SUCROSE VACCINE 00:00:00 [facility] 12 YRS+, BIVALENT Branch 0.3ML, IM, (PFIZER FOUNTAIN TOP BOOSTER) SARS-COV-2 COVID-19 2022-07-27 Completed Unive rsity of [facility]STELLE-SUCROSE VACCINE 00:00:00 [facility] 12 YRS+, BIVALENT Branch 0.3ML, IM, (PFIZER FOUNTAIN TOP BOOSTER) SARS-COV-2 COVID-19 2022-07-27 Completed Unive rsity of [facility]ELLE-SUCROSE VACCINE 00:00:00 [facility] 12 YRS+, BIVALENT Branch 0.3ML, IM, (PFIZER FOUNTAIN TOP BOOSTER) SARS-COV-2 COVID-19 2022-07-27 Completed Unive rsity of [facility]ELLE-SUCROSE VACCINE 00:00:00 [facility] 12 YRS+, BIVALENT Branch 0.3ML, IM, (PFIZER OFUNTAIN TOP BOOSTER) SARS-COV-2 COVID-19 2022-07-27 Completed Unive rsity of [facility]ELLE-SUCROSE VACCINE 00:00:00 [facility] 12 YRS+, BIVALENT Branch 0.3ML, IM, (PFIZER FOUNTAIN TOP BOOSTER) SARS-COV-2 COVID-19 2022-07-27 Completed Unive rsity of [facility]ELLE-SUCROSE VACCINE 00:00:00 [facility] 12 YRS+, BIVALENT Branch 0.3ML, IM, (PFIZER FOUNTAIN TOP BOOSTER) SARS-COV-2 COVID-19 2022-07-27 Completed Unive rsity of [facility]ELLE-SUCROSE VACCINE 00:00:00 [facility] 12 YRS+, BIVALENT Branch 0.3ML, IM, (PFIZER FOUTNAIN TOP BOOSTER) SARS-COV-2 COVID-19 2022-07-27 Completed Unive rsity of [facility]ELLE-SUCROSE VACCINE 00:00:00 [facility] 12 YRS+, BIVALENT Branch 0.3ML, IM, (PFIZER FOUNTAIN TOP BOOSTER) SARS-COV-2 COVID-19 2022-07-27 Completed Unive rsity of [facility]ELLE-SUCROSE VACCINE 00:00:00 [facility] 12 YRS+, BIVALENT Branch 0.3ML, IM, (PFIZER FOUNTAIN TOP BOOSTER) SARS-COV-2 COVID-19 2022-07-27 Completed Unive rsity of [facility]ELLE-SUCROSE VACCINE 00:00:00 [facility] 12 YRS+, BIVALENT Branch 0.3ML, IM, (PFIZER FOUNTAIN TOP BOOSTER) SARS-COV-2 COVID-19 2022-07-27 Completed Unive rsity of [facility]STELEL-SUCROSE VACCINE 00:00:00 [facility] 12 YRS+, BIVALENT Branch 0.3ML, IM, (PFIZER FOUNTAIN TOP BOOSTER) SARS-COV-2 COVID-19 2022-07-27 Completed Unive rsity of [facility]EL[facility]-SUCROSE VACCINE 00:00:00 [facility] 12 YRS+, BIVALENT Branch 0.3ML, IM, (PFIZER FOUNTAIN TOP BOOSTER) SARS-COV-2 COVID-19 2022-07-27 Completed Unive rsity of [facility]ELLE-SUCROSE VACCINE 00:00:00 [facility] 12 YRS+, BIVALENT Branch 0.3ML, IM, (PFIZER FOUNTAIN TOP BOOSTER) SARS-COV-2 COVID-19 2022-07-27 Completed Unive rsity of [facility]ELLE-SUCROSE VACCINE 00:00:00 [facility] 12 YRS+, BIVALENT Branch 0.3ML, IM, (PFIZER FOUNTAIN TOP BOOSTER) SARS-COV-2 COVID-19 2022-07-27 Completed Unive rsity of [facility]ELLE-SUCROSE VACCINE 00:00:00 [facility] 12 YRS+, BIVALENT Branch 0.3ML, IM, (PFIZER FOUNTAIN TOP BOOSTER) SARS-COV-2 COVID-19 2022-07-27 Completed Unive rsity of [facility]ELLE-SUCROSE VACCINE 00:00:00 [facility] 12 YRS+, BIVALENT Branch 0.3ML, IM, (PFIZER FOUNTAIN TOP BOOSTER) SARS-COV-2 COVID-19 2022-07-27 Completed Unive rsity of [facility]ELLE-SUCROSE VACCINE 00:00:00 [facility] 12 YRS+, BIVALENT Branch 0.3ML, IM, (PFIZER FOUNTAIN TOP BOOSTER) SARS-COV-2 COVID-19 2022-07-27 Completed Unive rsity of [facility]STELLE-SUCROSE VACCINE 00:00:00 [facility] 12 YRS+, BIVALENT Branch 0.3ML, IM, (PFIZER FOUNTAIN TOP BOOSTER) SARS-COV-2 COVID-19 2022-07-27 Completed Unive rsity of [facility]ELLE-SUCROSE VACCINE 00:00:00 [facility] 12 YRS+, BIVALENT Branch 0.3ML, IM, (PFIZER FOUNTAIN TOP BOOSTER) SARS-COV-2 COVID-19 2022-07-27 Completed Unive rsity of [facility]ELLE-SUCROSE VACCINE 00:00:00 [facility] 12 YRS+, BIVALENT Branch 0.3ML, IM, (PFIZER FOUNTAIN TOP BOOSTER) SARS-COV-2 COVID-19 2022-07-27 Completed Unive rsity of [facility]STELLE-SUCROSE VACCINE 00:00:00 [facility] 12 YRS+, BIVALENT Branch 0.3ML, IM, (PFIZER FOUNTAIN TOP BOOSTER) SARS-COV-2 COVID-19 2022-07-27 Completed Unive rsity of [facility]ELLE-SUCROSE VACCINE 00:00:00 [facility] 12 YRS+, BIVALENT Branch 0.3ML, IM, (PFIZER FOUNTAIN TOP BOOSTER) SARS-COV-2 COVID-19 2022-07-27 Completed Unive rsity of [facility]ELLE-SUCROSE VACCINE 00:00:00 [facility] 12 YRS+, BIVALENT Branch 0.3ML, IM, (PFIZER FOUNTAIN TOP BOOSTER) SARS-COV-2 COVID-19 2022-07-27 Completed Unive rsity of [facility]ELLE-SUCROSE VACCINE 00:00:00 [facility] 12 YRS+, BIVALENT Branch 0.3ML, IM, (PFIZER FOUNTAIN TOP BOOSTER) SARS-COV-2 COVID-19 2022-07-27 Completed Unive rsity of [facility]STELLE-SUCROSE VACCINE 00:00:00 [facility] 12 YRS+, BIVALENT Branch 0.3ML, IM, (PFIZER FOUNTAIN TOP BOOSTER) SARS-COV-2 COVID-19 2022-07-27 Completed Unive rsity of [facility]STELLE-SUCROSE VACCINE 00:00:00 [facility] 12 YRS+, BIVALENT Branch 0.3ML, IM, (PFIZER FOUNTAIN TOP BOOSTER) SARS-COV-2 COVID-19 2022-07-27 Completed Unive rsity of [facility]RISTELLE-SUCROSE VACCINE 00:00:00 [facility] 12 YRS+, BIVALENT Branch 0.3ML, IM, (PFIZER FOUNTAIN TOP BOOSTER) SARS-COV-2 COVID-19 2022-07-27 Completed Unive rsity of [facility]ELLE-SUCROSE VACCINE 00:00:00 [facility] 12 YRS+, BIVALENT Branch 0.3ML, IM, (PFIZER FOUNTAIN TOP BOOSTER) SARS-COV-2 COVID-19 2022-07-27 Completed Unive rsity of [facility]ELLE-SUCROSE VACCINE 00:00:00 [facility] 12 YRS+, BIVALENT Branch 0.3ML, IM, (PFIZER FOUNTAIN TOP BOOSTER) SARS-COV-2 COVID-19 2022-07-27 Completed Unive rsity of [facility]STELLE-SUCROSE VACCINE 00:00:00 [facility] 12 YRS+, BIVALENT Branch 0.3ML, IM, (PFIZER FOUNTAIN TOP BOOSTER) SARS-COV-2 COVID-19 2022-07-27 Completed Unive rsity of [facility]STELLE-SUCROSE VACCINE 00:00:00 [facility] 12 YRS+, BIVALENT Branch 0.3ML, IM, (PFIZER FOUNTAIN TOP BOOSTER) SARS-COV-2 COVID-19 2022-07-27 Completed Unive rsity of [facility]STELLE-SUCROSE VACCINE 00:00:00 [facility] 12 YRS+, BIVALENT Branch 0.3ML, IM, (PFIZER FOUNTAIN TOP BOOSTER) SARS-COV-2 COVID-19 2022-07-27 Completed Unive rsity of [facility]ELLE-SUCROSE VACCINE 00:00:00 [facility] 12 YRS+, BIVALENT Branch 0.3ML, IM, (PFIZER FOUNTAIN TOP BOOSTER) SARS-COV-2 COVID-19 2022-07-27 Completed Unive rsity of [facility]STELLE-SUCROSE VACCINE 00:00:00 [facility] 12 YRS+, BIVALENT Branch 0.3ML, IM, (PFIZER FOUNTAIN TOP BOOSTER) SARS-COV-2 COVID-19 2022-07-27 Completed Unive rsity of [facility]ELLE-SUCROSE VACCINE 00:00:00 [facility] 12 YRS+, BIVALENT Branch 0.3ML, IM, (PFIZER FOUNTAIN TOP BOOSTER) SARS-COV-2 COVID-19 2022-07-27 Completed Unive rsity of [facility]STELLE-SUCROSE VACCINE 00:00:00 [facility] 12 YRS+, BIVALENT Branch 0.3ML, IM, (PFIZER FOUNTAIN TOP BOOSTER) SARS-COV-2 COVID-19 2022-07-27 Completed Unive rsity of [facility]STELLE-SUCROSE VACCINE 00:00:00 [facility] 12 YRS+, BIVALENT Branch 0.3ML, IM, (PFIZER FOUNTAIN TOP BOOSTER) SARS-COV-2 COVID-19 2022-07-27 Completed Unive rsity of [facility]ELLE-SUCROSE VACCINE 00:00:00 [facility] 12 YRS+, BIVALENT Branch 0.3ML, IM, (PFIZER FOUNTAIN TOP BOOSTER) SARS-COV-2 COVID-19 2022-07-27 Completed Unive rsity of [facility]ELLE-SUCROSE VACCINE 00:00:00 [facility] 12 YRS+, BIVALENT Branch 0.3ML, IM, (PFIZER FOUNTAIN TOP BOOSTER) SARS-COV-2 COVID-19 2022-07-27 Completed Unive rsity of [facility]ELLE-SUCROSE VACCINE 00:00:00 [facility] 12 YRS+, BIVALENT Branch 0.3ML, IM, (PFIZER FOUNTAIN TOP BOOSTER) SARS-COV-2 COVID-19 2022-07-27 Completed Unive rsity of [facility]ELLE-SUCROSE VACCINE 00:00:00 [facility] 12 YRS+, BIVALENT Branch 0.3ML, IM, (PFIZER FOUNTAIN TOP BOOSTER) SARS-COV-2 COVID-19 2022-07-27 Completed Unive rsity of [facility]ELLE-SUCROSE VACCINE 00:00:00 [facility] 12 YRS+, BIVALENT Branch 0.3ML, IM, (PFIZER FOUNTAIN TOP BOOSTER) SARS-COV-2 COVID-19 2022-07-27 Completed Unive rsity of [facility]ELLE-SUCROSE VACCINE 00:00:00 [facility] 12 YRS+, BIVALENT Branch 0.3ML, IM, (PFIZER FOUNTAIN TOP BOOSTER) SARS-COV-2 COVID-19 2022-07-27 Completed Unive rsity of [facility]ELLE-SUCROSE VACCINE 00:00:00 [facility] 12 YRS+, BIVALENT Branch 0.3ML, IM, (PFIZER FOUNTAIN TOP BOOSTER) SARS-COV-2 COVID-19 2022-07-27 Completed Unive rsity of [facility]ELLE-SUCROSE VACCINE 00:00:00 [facility] 12 YRS+, BIVALENT Branch 0.3ML, IM, (PFIZER FOUNTAIN TOP BOOSTER) SARS-COV-2 COVID-19 2022-07-27 Completed Unive rsity of [facility]ELLE-SUCROSE VACCINE 00:00:00 [facility] 12 YRS+, BIVALENT Branch 0.3ML, IM, (PFIZER FOUNTAIN TOP BOOSTER) SARS-COV-2 COVID-19 2022-07-27 Completed Unive rsity of [facility]STELLE-SUCROSE VACCINE 00:00:00 [facility] 12 YRS+, BIVALENT Branch 0.3ML, IM, (PFIZER FOUNTAIN TOP BOOSTER) SARS-COV-2 COVID-19 2022-07-27 Completed Unive rsity of [facility]STELLE-SUCROSE VACCINE 00:00:00 [facility] 12 YRS+, BIVALENT Branch 0.3ML, IM, (PFIZER FOUNTAIN TOP BOOSTER) SARS-COV-2 COVID-19 2022-07-27 Completed Unive rsity of [facility]STELLE-SUCROSE VACCINE 00:00:00 [facility] 12 YRS+, BIVALENT Branch 0.3ML, IM, (PFIZER FOUNTAIN TOP BOOSTER) SARS-COV-2 COVID-19 2022-07-27 Completed Unive rsity of [facility]ELLE-SUCROSE VACCINE 00:00:00 [facility] 12 YRS+, BIVALENT Branch 0.3ML, IM, (PFIZER FOUNTAIN TOP BOOSTER) SARS-COV-2 COVID-19 2022-07-27 Completed Unive rsity of [facility]STELLE-SUCROSE VACCINE 00:00:00 [facility] 12 YRS+, BIVALENT Branch 0.3ML, IM, (PFIZER FOUNTAIN TOP BOOSTER) SARS-COV-2 COVID-19 2022-07-27 Completed Unive rsity of [facility]RISTELLE-SUCROSE VACCINE 00:00:00 [facility] 12 YRS+, BIVALENT Branch 0.3ML, IM, (PFIZER FOUNTAIN TOP BOOSTER) SARS-COV-2 COVID-19 2022-07-27 Completed Unive rsity of [facility]RISTELLE-SUCROSE VACCINE 00:00:00 [facility] 12 YRS+, BIVALENT Branch 0.3ML, IM, (PFIZER FOUNTAIN TOP BOOSTER) SARS-COV-2 COVID-19 2022-07-27 Completed Unive rsity of [facility]STELLE-SUCROSE VACCINE 00:00:00 [facility] 12 YRS+, BIVALENT Branch 0.3ML, IM, (PFIZER FOUNTAIN TOP BOOSTER) SARS-COV-2 COVID-19 2022-07-27 Completed Unive rsity of [facility]STELLE-SUCROSE VACCINE 00:00:00 [facility] 12 YRS+, BIVALENT Branch 0.3ML, IM, (PFIZER FOUNTAIN TOP BOOSTER) SARS-COV-2 COVID-19 2022-07-27 Completed Unive rsity of [facility]ELLE-SUCROSE VACCINE 00:00:00 [facility] 12 YRS+, BIVALENT Branch 0.3ML, IM, (PFIZER FOUNTAIN TOP BOOSTER) SARS-COV-2 COVID-19 2022-07-27 Completed Unive rsity of CHRISTELLE-SUCROSE VACCINE 00:00:00 [facility] 12 YRS+, BIVALENT Branch 0.3ML, IM, (PFIZER FOUNTAIN TOP BOOSTER) SARS-COV-2 COVID-19 2022-07-27 Completed Unive rsity of [facility]STELLE-SUCROSE VACCINE 00:00:00 [facility] 12 YRS+, BIVALENT Branch 0.3ML, IM, (PFIZER FOUNTAIN TOP BOOSTER) SARS-COV-2 COVID-19 2022-07-27 Completed Unive rsity of [facility]STELLE-SUCROSE VACCINE 00:00:00 [facility] 12 YRS+, BIVALENT Branch 0.3ML, IM, (PFIZER FOUNTAIN TOP BOOSTER) SARS-COV-2 COVID-19 2022-07-27 Completed Unive rsity of [facility]STELLE-SUCROSE VACCINE 00:00:00 [facility] 12 YRS+, BIVALENT Branch 0.3ML, IM, (PFIZER FOUNTAIN TOP BOOSTER) SARS-COV-2 COVID-19 2022-07-27 Completed Unive rsity of CHRISTELLE-SUCROSE VACCINE 00:00:00 [facility] 12 YRS+, BIVALENT Branch 0.3ML, IM, (PFIZER FOUNTAIN TOP BOOSTER) SARS-COV-2 COVID-19 2022-07-27 Completed Unive rsity of [facility]STELLE-SUCROSE VACCINE 00:00:00 [facility] 12 YRS+, BIVALENT Branch 0.3ML, IM, (PFIZER FOUNTAIN TOP) SARS-COV-2 COVID-19 2022-07-27 Completed Unive rsity of CHRISTELLE-SUCROSE VACCINE 00:00:00 [facility] 12 YRS+, BIVALENT Branch 0.3ML, IM, (PFIZER FOUNTAIN TOP) SARS-COV-2 COVID-19 2022-07-27 Completed Unive rsity of CHRISTELLE-SUCROSE VACCINE 00:00:00 [facility] 12 YRS+, BIVALENT Branch 0.3ML, IM, (PFIZER FOUNTAIN TOP) SARS-COV-2 COVID-19 2022-07-27 Completed Unive rsity of [facility]STELLE-SUCROSE VACCINE 00:00:00 [facility] 12 YRS+, BIVALENT Branch 0.3ML, IM, (PFIZER FOUNTAIN TOP) SARS-COV-2 COVID-19 2022-07-27 Completed Unive rsity of CHRISTELLE-SUCROSE VACCINE 00:00:00 [facility] 12 YRS+, BIVALENT Branch 0.3ML, IM, (PFIZER FOUNTAIN TOP) SARS-COV-2 COVID-19 2022-07-27 Completed Unive rsity of [facility]STELLE-SUCROSE VACCINE 00:00:00 [facility] 12 YRS+, BIVALENT Branch 0.3ML, IM, (PFIZER FOUNTAIN TOP) SARS-COV-2 COVID-19 2022-07-27 Completed Unive rsity of CHRISTELLE-SUCROSE VACCINE 00:00:00 [facility] 12 YRS+, BIVALENT Branch 0.3ML, IM, (PFIZER FOUNTAIN TOP) SARS-COV-2 COVID-19 2022-07-27 Completed [facility]ity [facility]EL[facility]-SUCROSE [facility]ACCINE 00:[facility] 12 Y[facility]+, BIVALENT Branch 0.3ML, IM, (PFIZER [...] y of Vaccine [place] .5 mL 00:00:00 [facility] Influenza Virus [...] y of Vaccine [place] .5 mL 00:00:00 [facility] Influenza Virus [...] y of Vaccine [place] .5 mL 00:00:00 [facility] Twin[facility] (hep a/hep 2022-02-24 Completed Univer sity of b) 00:00:00 [facility] Twinrix (hep a/hep 2022-02-24 Completed Univer sity of b) 00:00:00 [facility] (hep a/hep 2022-02-24 Completed Univer sity of b) 00:00:00 [facility] (hep a/hep 2022-02-24 Completed Univer sity of b) 00:00:00 [facility] (hep a/hep 2022-02-24 Completed Univer sity of b) 00:00:00 [facility] (hep a/hep 2022-02-24 Completed Univer sity of b) 00:00:00 [facility] (hep a/hep 2022-02-24 Completed Univer sity of b) 00:00:00 [facility] (hep a/hep 2022-02-24 Completed Univer sity of b) 00:00:00 [facility] (hep a/hep 2022-02-24 Completed Univer sity of b) 00:00:00 [facility] (hep a/hep 2022-02-24 Completed Univer sity of b) 00:00:00 [facility] (hep a/hep 2022-02-24 Completed Univer sity of b) 00:00:00 [facility] (hep a/hep 2022-02-24 Completed Univer sity of b) 00:00:00 [facility] (hep a/hep 2022-02-24 Completed Univer sity of b) 00:00:00 [facility] (hep a/hep 2022-02-24 Completed Univer sity of b) 00:00:00 [facility] (hep a/hep 2022-02-24 Completed Univer sity of b) 00:00:00 [facility] (hep a/hep 2022-02-24 Completed Univer sity of b) 00:00:00 [facility] (hep a/hep 2022-02-24 Completed Univer sity of b) 00:00:00 [facility] (hep a/hep 2022-02-24 Completed Univer sity of b) 00:00:00 [facility] (hep a/hep 2022-02-24 Completed Univer sity of b) 00:00:00 [facility] (hep a/hep 2022-02-24 Completed Univer sity of b) 00:00:00 [facility] (hep a/hep 2022-02-24 Completed Univer sity of b) 00:00:00 [facility] (hep a/hep 2022-02-24 Completed Univer sity of b) 00:00:00 [facility] (hep a/hep 2022-02-24 Completed Univer sity of b) 00:00:00 [facility] (hep a/hep 2022-02-24 Completed Univer sity of b) 00:00:00 [facility] (hep a/hep 2022-02-24 Completed Univer sity of b) 00:00:00 [facility] (hep a/hep 2022-02-24 Completed Univer sity of b) 00:00:00 [facility] (hep a/hep 2022-02-24 Completed Univer sity of b) 00:00:00 [facility] (hep a/hep 2022-02-24 Completed Univer sity of b) 00:00:00 [facility] (hep a/hep 2022-02-24 Completed Univer sity of b) 00:00:00 [facility] (hep a/hep 2022-02-24 Completed Univer sity of b) 00:00:00 [facility] (hep a/hep 2022-02-24 Completed Univer sity of b) 00:00:00 [facility] (hep a/hep 2022-02-24 Completed Univer sity of b) 00:00:00 [facility] (hep a/hep 2022-02-24 Completed Univer sity of b) 00:00:00 [facility] (hep a/hep 2022-02-24 Completed Univer sity of b) 00:00:00 [facility] (hep a/hep 2022-02-24 Completed Univer sity of b) 00:00:00 [facility] (hep a/hep 2022-02-24 Completed Univer sity of b) 00:00:00 [facility] (hep a/hep 2022-02-24 Completed Univer sity of b) 00:00:00 [facility] (hep a/hep 2022-02-24 Completed Univer sity of b) 00:00:00 [facility] (hep a/hep 2022-02-24 Completed Univer sity of b) 00:00:00 [facility] (hep a/hep 2022-02-24 Completed Univer sity of b) 00:00:00 [facility] (hep a/hep 2022-02-24 Completed Univer sity of b) 00:00:00 [facility] (hep a/hep 2022-02-24 Completed Univer s[facility] of b) 00:00:00 [facility] (hep a/hep 2022-02-24 Completed Univer s[facility] of b) 00:00:00 [facility] (hep a/hep 2022-02-24 Completed Univer sity of b) 00:00:00 [facility] (hep a/hep 2022-02-24 Completed Univer s[facility] of b) 00:00:00 [facility] (hep a/hep 2022-02-24 Completed Univer sity of b) 00:00:00 [facility] (hep a/hep 2022-02-24 Completed Univer sity of b) 00:00:00 [facility] (hep a/hep 2022-02-24 Completed Univer sity of b) 00:00:00 [facility] (hep a/hep 2022-02-24 Completed Univer sity of b) 00:00:00 [facility] (hep a/hep 2022-02-24 Completed Univer sity of b) 00:00:00 [facility] (hep a/hep 2022-02-24 Completed Univer sity of b) 00:00:00 [facility] (hep a/hep 2022-02-24 Completed Univer sity of b) 00:00:00 [facility] (hep a/hep 2022-02-24 Completed Univer sity of b) 00:00:00 [facility] (hep a/hep 2022-02-24 Completed Univer sity of b) 00:00:00 [facility] (hep a/hep 2022-02-24 Completed Univer sity of b) 00:00:00 [facility] (hep a/hep 2022-02-24 Completed Univer sity of b) 00:00:00 [facility] (hep a/hep 2022-02-24 Completed Univer sity of b) 00:00:00 [facility] (hep a/hep 2022-02-24 Completed Univer sity of b) 00:00:00 [facility] (hep a/hep 2022-02-24 Completed Un[facility] sity of b) 00:00:00 [facility] (hep a/hep 2022-02-24 Completed [facility] b) 00:00:00 [facility] [facility] (hep a/hep 2022-02-24 Completed Un[facility] of b) 00:00:00 [facility] (hep a/hep 2022-02-24 Completed [facility] of b) 00:00:00 [facility] (hep a/hep 2022-02-24 Completed [facility] of b) 00:00:00 [facility] (hep a/hep 2022-02-24 Completed [facility] of b) 00:00:00 [facility] (hep a/hep 2022-02-24 Completed [facility] of b) 00:00:00 [facility] (hep a/hep 2022-02-24 Completed [facility] of b) 00:00:00 [facility] (hep a/hep 2022-02-24 Completed [facility] of b) 00:00:00 [facility] (hep a/hep 2022-02-24 Completed [facility] of b) 00:00:00 [facility] (hep a/hep 2022-02-24 Completed [facility] of b) 00:00:00 [facility] (hep a/hep 2022-02-24 Completed [facility] s[facility] of b) 00:00:00 [facility] (hep a/hep 2022-02-24 Completed [facility] of b) 00:00:00 [facility] (hep a/hep 2022-02-24 Completed [facility] of b) 00:00:00 [facility] (hep a/hep 2022-02-24 Completed [facility] of b) 00:00:00 [facility] (hep a/hep 2022-02-24 Completed [facility] of b) 00:00:00 [facility] (hep a/hep 2022-02-24 Completed [facility] of b) 00:00:00 [facility] (hep a/hep 2022-02-24 Completed [facility] of b) 00:00:00 [facility] (hep a/hep 2022-02-24 Completed [facility] of b) 00:00:00 [facility] (hep a/hep 2022-02-24 Completed [facility] of b) 00:00:00 [facility] (hep a/hep 2022-02-24 Completed [facility] of b) 00:00:00 [facility] (hep a/hep 2022-02-24 Completed [facility] of b) 00:00:00 [facility] (hep a/hep 2022-02-24 Completed [facility] of b) 00:00:00 [facility] (hep a/hep 2022-02-24 Completed [facility] of b) 00:00:00 [facility] (hep a/hep 2022-02-24 Completed [facility] of b) 00:00:00 [facility] (hep a/hep 2022-02-24 Completed [facility] of b) 00:00:00 [facility] (hep a/hep 2022-02-24 Completed [facility] of b) 00:00:00 [facility] (hep a/hep 2022-02-24 Completed [facility] of b) 00:00:00 [facility] (hep a/hep 2022-02-24 Completed [facility]ity of b) 00:00:00 [facility] (hep a/hep 2022-02-24 Completed [facility] of b) 00:00:00 [facility] (hep a/hep 2022-02-24 Completed [facility] of b) 00:00:00 [facility] (hep a/hep 2022-02-24 Completed [facility] of b) 00:00:00 [facility] (hep a/hep 2022-02-24 Completed [facility] of b) 00:00:00 [facility] (hep a/hep 2022-02-24 Completed [facility] of b) 00:00:00 [facility] (hep a/hep 2022-02-24 Completed [facility] of b) 00:00:00 [facility] (hep a/hep 2022-02-24 Completed [facility] of b) 00:00:00 [facility] (hep a/hep 2022-02-24 Completed [facility] of b) 00:00:00 [facility] (hep a/hep 2022-02-24 Completed [facility] of b) 00:00:00 [facility] (hep a/hep 2022-02-24 Completed [facility] of b) 00:00:00 [facility] (hep a/hep 2022-02-24 Completed [facility] of b) 00:00:00 [facility] (hep a/hep 2022-02-24 Completed [facility] of b) 00:00:00 [facility] (hep a/hep 2022-02-24 Completed [facility] of b) 00:00:00 [facility] (hep a/hep 2022-02-24 Completed [facility] of b) 00:00:00 [facility] (hep a/hep 2022-02-24 Completed [facility] of b) 00:00:00 [facility] (hep a/hep 2022-02-24 Completed [facility] of b) 00:00:00 [facility] (hep a/hep 2022-02-24 Completed [facility] of b) 00:00:00 [facility] (hep a/hep 2022-02-24 Completed [facility] of b) 00:00:00 [facility] (hep a/hep 2022-02-24 Completed [facility] of b) 00:00:00 [facility] (hep a/hep 2022-02-24 Completed [facility] of b) 00:00:00 [facility] (hep a/hep 2022-02-24 Completed [facility] of b) 00:00:00 [facility] (hep a/hep 2022-02-24 Completed [facility] of b) 00:00:00 [facility] (hep a/hep 2022-02-24 Completed [facility] of b) 00:00:00 [facility] (hep a/hep 2022-02-24 Completed [facility] of b) 00:00:00 [facility] (hep a/hep 2022-02-24 Completed [facility] of b) 00:00:00 [facility] (hep a/hep 2022-02-24 Completed [facility] of b) 00:00:00 [facility] (hep a/hep 2022-02-24 Completed [facility] of b) 00:00:00 [facility] (hep a/hep 2022-02-24 Completed [facility] of b) 00:00:00 [facility] (hep a/hep 2022-02-24 Completed [facility] of b) 00:00:00 [facility] (hep a/hep 2022-02-24 Completed [facility] of b) 00:00:00 [facility] (hep a/hep 2022-02-24 Completed [facility]ity of b) 00:00:00 [facility] (hep a/hep 2022-02-24 Completed Univer s[facility] of b) 00:00:00 [facility] (hep a/hep 2022-02-24 Completed [facility] sity of b) 00:00:00 [facility] (hep a/hep 2022-02-24 Completed [facility] of b) 00:00:00 [facility] (hep a/hep 2022-02-24 Completed [facility] of b) 00:00:00 [facility] (hep a/hep 2022-02-24 Completed [facility] of b) 00:00:00 [facility] (hep a/hep 2022-02-24 Completed [facility] of b) 00:00:00 [facility] (hep a/hep 2022-02-24 Completed [facility] of b) 00:00:00 [facility] (hep a/hep 2022-02-24 Completed [facility] of b) 00:00:00 [facility] (hep a/hep 2022-02-24 Completed [facility] of b) 00:00:00 [facility] (hep a/hep 2022-02-24 Completed [facility] of b) 00:00:00 [facility] (hep a/hep 2022-02-24 Completed [facility] of b) 00:00:00 [facility] (hep a/hep 2022-02-24 Completed [facility] of b) 00:00:00 [facility] (hep a/hep 2022-02-24 Completed [facility] of b) 00:00:00 [facility] (hep a/hep 2022-02-24 Completed [facility] of b) 00:00:00 [facility] (hep a/hep 2022-02-24 Completed [facility] sity of b) 00:00:00 [facility] (hep a/hep 2022-01-14 Completed [facility] of b) 00:00:00 [facility] (hep a/hep 2022-01-14 Completed [facility] of b) 00:00:00 [facility] (hep a/hep 2022-01-14 Completed [facility] of b) 00:00:00 [facility] (hep a/hep 2022-01-14 Completed [facility] of b) 00:00:00 [facility] (hep a/hep 2022-01-14 Completed [facility] of b) 00:00:00 [facility] (hep a/hep 2022-01-14 Completed [facility] of b) 00:00:00 [facility] (hep a/hep 2022-01-14 Completed [facility] of b) 00:00:00 [facility] (hep a/hep 2022-01-14 Completed [facility] of b) 00:00:00 [facility] (hep a/hep 2022-01-14 Completed [facility] of b) 00:00:00 [facility] (hep a/hep 2022-01-14 Completed [facility] of b) 00:00:00 [facility] (hep a/hep 2022-01-14 Completed [facility] of b) 00:00:00 [facility] (hep a/hep 2022-01-14 Completed [facility] of b) 00:00:00 [facility] (hep a/hep 2022-01-14 Completed [facility] of b) 00:00:00 [facility] (hep a/hep 2022-01-14 Completed [facility] of b) 00:00:00 [facility] (hep a/hep 2022-01-14 Completed [facility] of b) 00:00:00 [facility] (hep a/hep 2022-01-14 Completed [facility] of b) 00:00:00 [facility] (hep a/hep 2022-01-14 Completed [facility] of b) 00:00:00 [facility] (hep a/hep 2022-01-14 Completed [facility] of b) 00:00:00 [facility] (hep a/hep 2022-01-14 Completed [facility] of b) 00:00:00 [facility] (hep a/hep 2022-01-14 Completed [facility] of b) 00:00:00 [facility] (hep a/hep 2022-01-14 Completed [facility] of b) 00:00:00 [facility] (hep a/hep 2022-01-14 Completed [facility] of b) 00:00:00 [facility] (hep a/hep 2022-01-14 Completed [facility] of b) 00:00:00 [facility] (hep a/hep 2022-01-14 Completed [facility] of b) 00:00:00 [facility] (hep a/hep 2022-01-14 Completed [facility] of b) 00:00:00 [facility] (hep a/hep 2022-01-14 Completed [facility] of b) 00:00:00 [facility] (hep a/hep 2022-01-14 Completed [facility] of b) 00:00:00 [facility] (hep a/hep 2022-01-14 Completed [facility] of b) 00:00:00 [facility] (hep a/hep 2022-01-14 Completed [facility] of b) 00:00:00 [facility] (hep a/hep 2022-01-14 Completed [facility] of b) 00:00:00 [facility] (hep a/hep 2022-01-14 Completed [facility] of b) 00:00:00 [facility] (hep a/hep 2022-01-14 Completed [facility] of b) 00:00:00 [facility] (hep a/hep 2022-01-14 Completed [facility] of b) 00:00:00 [facility] (hep a/hep 2022-01-14 Completed [facility] of b) 00:00:00 [facility] (hep a/hep 2022-01-14 Completed [facility] of b) 00:00:00 [facility] (hep a/hep 2022-01-14 Completed [facility] of b) 00:00:00 [facility] (hep a/hep 2022-01-14 Completed [facility] of b) 00:00:00 [facility] (hep a/hep 2022-01-14 Completed [facility] of b) 00:00:00 [facility] (hep a/hep 2022-01-14 Completed [facility] of b) 00:00:00 [facility] (hep a/hep 2022-01-14 Completed [facility] of b) 00:00:00 [facility] (hep a/hep 2022-01-14 Completed [facility] of b) 00:00:00 [facility] (hep a/hep 2022-01-14 Completed [facility] of b) 00:00:00 [facility] (hep a/hep 2022-01-14 Completed [facility] of b) 00:00:00 [facility] (hep a/hep 2022-01-14 Completed [facility] of b) 00:00:00 [facility] (hep a/hep 2022-01-14 Completed [facility] of b) 00:00:00 [facility] (hep a/hep 2022-01-14 Completed [facility] of b) 00:00:00 [facility] (hep a/hep 2022-01-14 Completed [facility] of b) 00:00:00 [facility] (hep a/hep 2022-01-14 Completed [facility] of b) 00:00:00 [facility] (hep a/hep 2022-01-14 Completed [facility] of b) 00:00:00 [facility] (hep a/hep 2022-01-14 Completed [facility] of b) 00:00:00 [facility] (hep a/hep 2022-01-14 Completed [facility] of b) 00:00:00 [facility] (hep a/hep 2022-01-14 Completed [facility] of b) 00:00:00 [facility] (hep a/hep 2022-01-14 Completed [facility] of b) 00:00:00 [facility] (hep a/hep 2022-01-14 Completed [facility] of b) 00:00:00 [facility] (hep a/hep 2022-01-14 Completed [facility] of b) 00:00:00 [facility] (hep a/hep 2022-01-14 Completed [facility] of b) 00:00:00 [facility] (hep a/hep 2022-01-14 Completed [facility] of b) 00:00:00 [facility] (hep a/hep 2022-01-14 Completed [facility] of b) 00:00:00 [facility] (hep a/hep 2022-01-14 Completed [facility] of b) 00:00:00 [facility] (hep a/hep 2022-01-14 Completed [facility] of b) 00:00:00 [facility] (hep a/hep 2022-01-14 Completed [facility] of b) 00:00:00 [facility] (hep a/hep 2022-01-14 Completed [facility] of b) 00:00:00 [facility] (hep a/hep 2022-01-14 Completed [facility] of b) 00:00:00 [facility] (hep a/hep 2022-01-14 Completed [facility] of b) 00:00:00 [facility] (hep a/hep 2022-01-14 Completed [facility] of b) 00:00:00 [facility] (hep a/hep 2022-01-14 Completed [facility] of b) 00:00:00 [facility] (hep a/hep 2022-01-14 Completed [facility] of b) 00:00:00 [facility] (hep a/hep 2022-01-14 Completed [facility] of b) 00:00:00 [facility] (hep a/hep 2022-01-14 Completed [facility] of b) 00:00:00 [facility] (hep a/hep 2022-01-14 Completed [facility] of b) 00:00:00 [facility] (hep a/hep 2022-01-14 Completed [facility] of b) 00:00:00 [facility] (hep a/hep 2022-01-14 Completed [facility] of b) 00:00:00 [facility] (hep a/hep 2022-01-14 Completed [facility] of b) 00:00:00 [facility] (hep a/hep 2022-01-14 Completed [facility] of b) 00:00:00 [facility] (hep a/hep 2022-01-14 Completed [facility] of b) 00:00:00 [facility] (hep a/hep 2022-01-14 Completed [facility] of b) 00:00:00 [facility] (hep a/hep 2022-01-14 Completed [facility] of b) 00:00:00 [facility] (hep a/hep 2022-01-14 Completed [facility] of b) 00:00:00 [facility] (hep a/hep 2022-01-14 Completed [facility] of b) 00:00:00 [facility] (hep a/hep 2022-01-14 Completed [facility] of b) 00:00:00 [facility] (hep a/hep 2022-01-14 Completed [facility] of b) 00:00:00 [facility] (hep a/hep 2022-01-14 Completed [facility] of b) 00:00:00 [facility] (hep a/hep 2022-01-14 Completed [facility] b) 00:00:00 [facility] (hep a/hep 2022-01-14 Completed [facility] b) 00:00:00 [facility] (hep a/hep 2022-01-14 Completed [facility] of b) 00:00:00 [facility] (hep a/hep 2022-01-14 Completed [facility] of b) 00:00:00 [facility] (hep a/hep 2022-01-14 Completed [facility] of b) 00:00:00 [facility] (hep a/hep 2022-01-14 Completed [facility] of b) 00:00:00 [facility] (hep a/hep 2022-01-14 Completed [facility] of b) 00:00:00 [facility] (hep a/hep 2022-01-14 Completed [facility] of b) 00:00:00 [facility] (hep a/hep 2022-01-14 Completed [facility] b) 00:00:00 [facility] (hep a/hep 2022-01-14 Completed [facility] of b) 00:00:00 [facility] (hep a/hep 2022-01-14 Completed [facility] of b) 00:00:00 [facility] (hep a/hep 2022-01-14 Completed [facility] of b) 00:00:00 [facility] (hep a/hep 2022-01-14 Completed [facility] of b) 00:00:00 [facility] (hep a/hep 2022-01-14 Completed [facility] b) 00:00:00 [facility] (hep a/hep 2022-01-14 Completed [facility] of b) 00:00:00 [facility] (hep a/hep 2022-01-14 Completed [facility] of b) 00:00:00 [facility] (hep a/hep 2022-01-14 Completed [facility] of b) 00:00:00 [facility] (hep a/hep 2022-01-14 Completed [facility] of b) 00:00:00 [facility] (hep a/hep 2022-01-14 Completed [facility] b) 00:00:00 [facility] (hep a/hep 2022-01-14 Completed [facility] b) 00:00:00 [facility] (hep a/hep 2022-01-14 Completed [facility] of b) 00:00:00 [facility] (hep a/hep 2022-01-14 Completed [facility] of b) 00:00:00 [facility] (hep a/hep 2022-01-14 Completed [facility] of b) 00:00:00 [facility] (hep a/hep 2022-01-14 Completed [facility] b) 00:00:00 [facility] (hep a/hep 2022-01-14 Completed [facility] b) 00:00:00 [facility] (hep a/hep 2022-01-14 Completed [facility] b) 00:00:00 [facility] (hep a/hep 2022-01-14 Completed [facility] of b) 00:00:00 [facility] (hep a/hep 2022-01-14 Completed [facility] of b) 00:00:00 [facility] (hep a/hep 2022-01-14 Completed [facility] b) 00:00:00 [facility] (hep a/hep 2022-01-14 Completed [facility] b) 00:00:00 [facility] (hep a/hep 2022-01-14 Completed [facility] of b) 00:00:00 [facility] (hep a/hep 2022-01-14 Completed [facility] b) 00:00:00 [facility] (hep a/hep 2022-01-14 Completed [facility] of b) 00:00:00 [facility] (hep a/hep 2022-01-14 Completed [facility] of b) 00:00:00 [facility] (hep a/hep 2022-01-14 Completed [facility] of b) 00:00:00 [facility] (hep a/hep 2022-01-14 Completed [facility] of b) 00:00:00 [facility] (hep a/hep 2022-01-14 Completed Univer s[facility] of b) 00:00:00 [facility] (hep a/hep 2022-01-14 Completed [facility] of b) 00:00:00 [facility] (hep a/hep 2022-01-14 Completed [facility] of b) 00:00:00 [facility] (hep a/hep 2022-01-14 Completed [facility] of b) 00:00:00 [facility] (hep a/hep 2022-01-14 Completed [facility] of b) 00:00:00 [facility] (hep a/hep 2022-01-14 Completed [facility] of b) 00:00:00 [facility] (hep a/hep 2022-01-14 Completed [facility] of b) 00:00:00 [facility] (hep a/hep 2022-01-14 Completed [facility] of b) 00:00:00 [facility] (hep a/hep 2022-01-14 Completed [facility] of b) 00:00:00 [facility] (hep a/hep 2022-01-14 Completed [facility] of b) 00:00:00 [facility] (hep a/hep 2022-01-14 Completed [facility] of b) 00:00:00 [facility] (hep a/hep 2022-01-14 Completed [facility] of b) 00:00:00 [facility] (hep a/hep 2022-01-14 Completed [facility] of b) 00:00:00 [facility] (hep a/hep 2022-01-14 Completed [facility] of b) 00:00:00 [facility] (hep a/hep 2022-01-14 Completed [facility] b) 00:00:00 [facility] SARS-COV-2 COVID-19 2021-07-23 Completed [facility] PFIZER VACCINE 00:00:00 [facility] SARS-COV-2 COVID-19 2021-07-23 Completed [facility] PFIZER VACCINE 00:00:00 [facility] SARS-COV-2 COVID-19 2021-07-23 Completed [facility] of PFIZER VACCINE 00:00:00 [facility] SARS-COV-2 COVID-19 2021-07-23 Completed [facility] of PFIZER VACCINE 00:00:00 [facility] SARS-COV-2 COVID-19 2021-07-23 Completed [facility] of PFIZER VACCINE 00:00:00 [facility] SARS-COV-2 COVID-19 2021-07-23 Completed [facility] of PFIZER VACCINE 00:00:00 [facility] SARS-COV-2 COVID-19 2021-07-23 Completed [facility] of PFIZER VACCINE 00:00:00 [facility] SARS-COV-2 COVID-19 2021-07-23 Completed [facility] of PFIZER VACCINE 00:00:00 [facility] SARS-COV-2 COVID-19 2021-07-23 Completed [facility] of PFIZER VACCINE 00:00:00 [facility] SARS-COV-2 COVID-19 2021-07-23 Completed [facility] of PFIZER VACCINE 00:00:00 [facility] SARS-COV-2 COVID-19 2021-07-23 Completed [facility] of PFIZER VACCINE 00:00:00 [facility] SARS-COV-2 COVID-19 2021-07-23 Completed [facility] of PFIZER VACCINE 00:00:00 [facility] SARS-COV-2 COVID-19 2021-07-23 Completed [facility] of PFIZER VACCINE 00:00:00 [facility] SARS-COV-2 COVID-19 2021-07-23 Completed [facility] of PFIZER VACCINE 00:00:00 [facility] SARS-COV-2 COVID-19 2021-07-23 Completed [facility] of PFIZER VACCINE 00:00:00 [facility] SARS-COV-2 COVID-19 2021-07-23 Completed [facility] PFIZER VACCINE 00:00:00 [facility] SARS-COV-2 COVID-19 2021-07-23 Completed [facility] PFIZER VACCINE 00:00:00 [facility] SARS-COV-2 COVID-19 2021-07-23 Completed [facility] PFIZER VACCINE 00:00:00 [facility] SARS-COV-2 COVID-19 2021-07-23 Completed [facility] PFIZER VACCINE 00:00:00 [facility] SARS-COV-2 COVID-19 2021-07-23 Completed [facility] PFIZER VACCINE 00:00:00 [facility] SARS-COV-2 COVID-19 2021-07-23 Completed [facility] PFIZER VACCINE 00:00:00 [facility] SARS-COV-2 COVID-19 2021-07-23 Completed [facility] PFIZER VACCINE 00:00:00 [facility] SARS-COV-2 COVID-19 2021-07-23 Completed [facility] PFIZER VACCINE 00:00:00 [facility] SARS-COV-2 COVID-19 2021-07-23 Completed [facility] PFIZER VACCINE 00:00:00 [facility] SARS-COV-2 COVID-19 2021-07-23 Completed [facility] PFIZER VACCINE 00:00:00 [facility] SARS-COV-2 COVID-19 2021-07-23 Completed [facility] PFIZER VACCINE 00:00:00 [facility] SARS-COV-2 COVID-19 2021-07-23 Completed [facility] PFIZER VACCINE 00:00:00 [facility] SARS-COV-2 COVID-19 2021-07-23 Completed [facility] PFIZER VACCINE 00:00:00 [facility] SARS-COV-2 COVID-19 2021-07-23 Completed [facility] PFIZER VACCINE 00:00:00 [facility] SARS-COV-2 COVID-19 2021-07-23 Completed [facility] PFIZER VACCINE 00:00:00 [facility] SARS-COV-2 COVID-19 2021-07-23 Completed [facility] PFIZER VACCINE 00:00:00 [facility] SARS-COV-2 COVID-19 2021-07-23 Completed [facility] PFIZER VACCINE 00:00:00 [facility] SARS-COV-2 COVID-19 2021-07-23 Completed [facility] PFIZER VACCINE 00:00:00 [facility] SARS-COV-2 COVID-19 2021-07-23 Completed [facility] PFIZER VACCINE 00:00:00 [facility] SARS-COV-2 COVID-19 2021-07-23 Completed [facility] PFIZER VACCINE 00:00:00 [facility] SARS-COV-2 COVID-19 2021-07-23 Completed [facility] PFIZER VACCINE 00:00:00 [facility] SARS-COV-2 COVID-19 2021-07-23 Completed [facility] PFIZER VACCINE 00:00:00 [facility] SARS-COV-2 COVID-19 2021-07-23 Completed [facility] PFIZER VACCINE 00:00:00 [facility] SARS-COV-2 COVID-19 2021-07-23 Completed [facility] PFIZER VACCINE 00:00:00 [facility] SARS-COV-2 COVID-19 2021-07-23 Completed [facility] PFIZER VACCINE 00:00:00 [facility] SARS-COV-2 COVID-19 2021-07-23 Completed [facility] PFIZER VACCINE 00:00:00 [facility] SARS-COV-2 COVID-19 2021-07-23 Completed [facility] PFIZER VACCINE 00:00:00 [facility] SARS-COV-2 COVID-19 2021-07-23 Completed [facility] PFIZER VACCINE 00:00:00 [facility] SARS-COV-2 COVID-19 2021-07-23 Completed [facility] PFIZER VACCINE 00:00:00 [facility] SARS-COV-2 COVID-19 2021-07-23 Completed [facility] PFIZER VACCINE 00:00:00 [facility] SARS-COV-2 COVID-19 2021-07-23 Completed [facility] PFIZER VACCINE 00:00:00 [facility] SARS-COV-2 COVID-19 2021-07-23 Completed [facility] PFIZER VACCINE 00:00:00 [facility] SARS-COV-2 COVID-19 2021-07-23 Completed [facility] PFIZER VACCINE 00:00:00 [facility] SARS-COV-2 COVID-19 2021-07-23 Completed [facility] PFIZER VACCINE 00:00:00 [facility] SARS-COV-2 COVID-19 2021-07-23 Completed [facility] PFIZER VACCINE 00:00:00 [facility] SARS-COV-2 COVID-19 2021-07-23 Completed [facility] PFIZER VACCINE 00:00:00 [facility] SARS-COV-2 COVID-19 2021-07-23 Completed [facility] PFIZER VACCINE 00:00:00 [facility] SARS-COV-2 COVID-19 2021-07-23 Completed [facility] PFIZER VACCINE 00:00:00 [facility] SARS-COV-2 COVID-19 2021-07-23 Completed [facility] PFIZER VACCINE 00:00:00 [facility] SARS-COV-2 COVID-19 2021-07-23 Completed [facility] PFIZER VACCINE 00:00:00 [facility] SARS-COV-2 COVID-19 2021-07-23 Completed [facility] PFIZER VACCINE 00:00:00 [facility] SARS-COV-2 COVID-19 2021-07-23 Completed [facility] PFIZER VACCINE 00:00:00 [facility] SARS-COV-2 COVID-19 2021-07-23 Completed [facility] PFIZER VACCINE 00:00:00 [facility] SARS-COV-2 COVID-19 2021-07-23 Completed [facility] PFIZER VACCINE 00:00:00 [facility] SARS-COV-2 COVID-19 2021-07-23 Completed [facility] PFIZER VACCINE 00:00:00 [facility] SARS-COV-2 COVID-19 2021-07-23 Completed [facility] PFIZER VACCINE 00:00:00 [facility] SARS-COV-2 COVID-19 2021-07-23 Completed [facility] PFIZER VACCINE 00:00:00 [facility] SARS-COV-2 COVID-19 2021-07-23 Completed [facility] PFIZER VACCINE 00:00:00 [facility] SARS-COV-2 COVID-19 2021-07-23 Completed [facility] PFIZER VACCINE 00:00:00 [facility] SARS-COV-2 COVID-19 2021-07-23 Completed [facility] PFIZER VACCINE 00:00:00 [facility] SARS-COV-2 COVID-19 2021-07-23 Completed [facility] PFIZER VACCINE 00:00:00 [facility] SARS-COV-2 COVID-19 2021-07-23 Completed [facility] PFIZER VACCINE 00:00:00 [facility] SARS-COV-2 COVID-19 2021-07-23 Completed [facility] PFIZER VACCINE 00:00:00 [facility] SARS-COV-2 COVID-19 2021-07-23 Completed [facility] PFIZER VACCINE 00:00:00 [facility] SARS-COV-2 COVID-19 2021-07-23 Completed [facility] PFIZER VACCINE 00:00:00 [facility] SARS-COV-2 COVID-19 2021-07-23 Completed [facility] PFIZER VACCINE 00:00:00 [facility] SARS-COV-2 COVID-19 2021-07-23 Completed [facility] PFIZER VACCINE 00:00:00 [facility] SARS-COV-2 COVID-19 2021-07-23 Completed [facility] PFIZER VACCINE 00:00:00 [facility] SARS-COV-2 COVID-19 2021-07-23 Completed [facility] PFIZER VACCINE 00:00:00 [facility] SARS-COV-2 COVID-19 2021-07-23 Completed [facility] PFIZER VACCINE 00:00:00 [facility] SARS-COV-2 COVID-19 2021-07-23 Completed [facility] PFIZER VACCINE 00:00:00 [facility] SARS-COV-2 COVID-19 2021-07-23 Completed [facility] PFIZER VACCINE 00:00:00 [facility] SARS-COV-2 COVID-19 2021-07-23 Completed [facility] PFIZER VACCINE 00:00:00 [facility] SARS-COV-2 COVID-19 2021-07-23 Completed [facility] PFIZER VACCINE 00:00:00 [facility] SARS-COV-2 COVID-19 2021-07-23 Completed [facility] PFIZER VACCINE 00:00:00 [facility] SARS-COV-2 COVID-19 2021-07-23 Completed [facility] PFIZER VACCINE 00:00:00 [facility] SARS-COV-2 COVID-19 2021-07-23 Completed [facility] PFIZER VACCINE 00:00:00 [facility] SARS-COV-2 COVID-19 2021-07-23 Completed [facility] PFIZER VACCINE 00:00:00 [facility] SARS-COV-2 COVID-19 2021-07-23 Completed [facility] PFIZER VACCINE 00:00:00 [facility] SARS-COV-2 COVID-19 2021-07-23 Completed [facility] PFIZER VACCINE 00:00:00 [facility] SARS-COV-2 COVID-19 2021-07-23 Completed [facility] PFIZER VACCINE 00:00:00 [facility] SARS-COV-2 COVID-19 2021-07-23 Completed [facility] PFIZER VACCINE 00:00:00 [facility] SARS-COV-2 COVID-19 2021-07-23 Completed [facility] PFIZER VACCINE 00:00:00 [facility] SARS-COV-2 COVID-19 2021-07-23 Completed [facility] PFIZER VACCINE 00:00:00 [facility] SARS-COV-2 COVID-19 2021-07-23 Completed [facility] PFIZER VACCINE 00:00:00 [facility] SARS-COV-2 COVID-19 2021-07-23 Completed [facility] PFIZER VACCINE 00:00:00 [facility] SARS-COV-2 COVID-19 2021-07-23 Completed [facility] PFIZER VACCINE 00:00:00 [facility] SARS-COV-2 COVID-19 2021-07-23 Completed [facility] PFIZER VACCINE 00:00:00 [facility] SARS-COV-2 COVID-19 2021-07-23 Completed [facility] PFIZER VACCINE 00:00:00 [facility] SARS-COV-2 COVID-19 2021-07-23 Completed [facility] PFIZER VACCINE 00:00:00 [facility] SARS-COV-2 COVID-19 2021-07-23 Completed [facility] PFIZER VACCINE 00:00:00 [facility] SARS-COV-2 COVID-19 2021-07-23 Completed [facility] PFIZER VACCINE 00:00:00 [facility] SARS-COV-2 COVID-19 2021-07-23 Completed [facility] PFIZER VACCINE 00:00:00 [facility] SARS-COV-2 COVID-19 2021-07-23 Completed [facility] PFIZER VACCINE 00:00:00 [facility] SARS-COV-2 COVID-19 2021-07-23 Completed [facility] PFIZER VACCINE 00:00:00 [facility] SARS-COV-2 COVID-19 2021-07-23 Completed [facility] PFIZER VACCINE 00:00:00 [facility] SARS-COV-2 COVID-19 2021-07-23 Completed [facility] PFIZER VACCINE 00:00:00 [facility] SARS-COV-2 COVID-19 2021-07-23 Completed [facility] PFIZER VACCINE 00:00:00 [facility] SARS-COV-2 COVID-19 2021-07-23 Completed [facility] PFIZER VACCINE 00:00:00 [facility] SARS-COV-2 COVID-19 2021-07-23 Completed [facility] PFIZER VACCINE 00:00:00 [facility] SARS-COV-2 COVID-19 2021-07-23 Completed [facility] PFIZER VACCINE 00:00:00 [facility] SARS-COV-2 COVID-19 2021-07-23 Completed [facility] PFIZER VACCINE 00:00:00 [facility] SARS-COV-2 COVID-19 2021-07-23 Completed [facility] PFIZER VACCINE 00:00:00 [facility] SARS-COV-2 COVID-19 2021-07-23 Completed [facility] PFIZER VACCINE 00:00:00 [facility] SARS-COV-2 COVID-19 2021-07-23 Completed [facility] PFIZER VACCINE 00:00:00 [facility] SARS-COV-2 COVID-19 2021-07-23 Completed [facility] PFIZER VACCINE 00:00:00 [facility] SARS-COV-2 COVID-19 2021-07-23 Completed [facility] PFIZER VACCINE 00:00:00 [facility] SARS-COV-2 COVID-19 2021-07-23 Completed [facility] PFIZER VACCINE 00:00:00 [facility] SARS-COV-2 COVID-19 2021-07-23 Completed [facility] PFIZER VACCINE 00:00:00 [facility] SARS-COV-2 COVID-19 2021-07-23 Completed [facility] PFIZER VACCINE 00:00:00 [facility] SARS-COV-2 COVID-19 2021-07-23 Completed [facility] PFIZER VACCINE 00:00:00 [facility] SARS-COV-2 COVID-19 2021-07-23 Completed [facility] PFIZER VACCINE 00:00:00 [facility] SARS-COV-2 COVID-19 2021-07-23 Completed [facility] PFIZER VACCINE 00:00:00 [facility] SARS-COV-2 COVID-19 2021-07-23 Completed [facility] PFIZER VACCINE 00:00:00 [facility] SARS-COV-2 COVID-19 2021-07-23 Completed [facility] PFIZER VACCINE 00:00:00 [facility] SARS-COV-2 COVID-19 2021-07-23 Completed [facility] PFIZER VACCINE 00:00:00 [facility] SARS-COV-2 COVID-19 2021-07-23 Completed [facility] PFIZER VACCINE 00:00:00 [facility] SARS-COV-2 COVID-19 2021-07-23 Completed [facility] PFIZER VACCINE 00:00:00 [facility] SARS-COV-2 COVID-19 2021-07-23 Completed [facility] PFIZER VACCINE 00:00:00 [facility] SARS-COV-2 COVID-19 2021-07-23 Completed [facility] PFIZER VACCINE 00:00:00 [facility] SARS-COV-2 COVID-19 2021-07-23 Completed [facility] PFIZER VACCINE 00:00:00 [facility] SARS-COV-2 COVID-19 2021-07-23 Completed [facility] PFIZER VACCINE 00:00:00 [facility] SARS-COV-2 COVID-19 2021-07-23 Completed [facility] PFIZER VACCINE 00:00:00 [facility] SARS-COV-2 COVID-19 2021-07-23 Completed [facility] PFIZER VACCINE 00:00:00 [facility] SARS-COV-2 COVID-19 2021-07-23 Completed [facility] PFIZER VACCINE 00:00:00 [facility] SARS-COV-2 COVID-19 2021-07-23 Completed [facility] PFIZER VACCINE 00:00:00 [facility] SARS-COV-2 COVID-19 2021-07-23 Completed [facility] PFIZER VACCINE 00:00:00 [facility] SARS-COV-2 COVID-19 2021-07-23 Completed [facility] PFIZER VACCINE 00:00:00 [facility] Influenza Virus 2021-05-27 Completed [facility] Vaccine (3+ yrs) 00:00:00 [facility] Influenza Virus 2021-05-27 Completed [facility] Vaccine (3+ yrs) 00:00:00 [facility] Influenza Virus 2021-05-27 Completed [facility] Vaccine (3+ yrs) 00:00:00 [facility] Influenza Virus 2021-05-27 Completed [facility] Vaccine (3+ yrs) 00:00:00 [facility] Influenza Virus 2021-05-27 Completed [facility] Vaccine (3+ yrs) 00:00:00 [facility] Influenza Virus 2021-05-27 Completed [facility] Vaccine (3+ yrs) 00:00:00 [facility] Influenza Virus 2021-05-27 Completed [facility] Vaccine (3+ yrs) 00:00:00 [facility] Influenza Virus 2021-05-27 Completed [facility] Vaccine (3+ yrs) 00:00:00 [facility] Influenza Virus 2021-05-27 Completed [facility] Vaccine (3+ yrs) 00:00:00 [facility] Influenza Virus 2021-05-27 Completed [facility] Vaccine (3+ yrs) 00:00:00 [facility] Influenza Virus 2021-05-27 Completed [facility] Vaccine (3+ yrs) 00:00:00 [facility] Influenza Virus 2021-05-27 Completed [facility] Vaccine (3+ yrs) 00:00:00 [facility] Influenza Virus 2021-05-27 Completed [facility] Vaccine (3+ yrs) 00:00:00 [facility] Influenza Virus 2021-05-27 Completed [facility] Vaccine (3+ yrs) 00:00:00 [facility] Influenza Virus 2021-05-27 Completed [facility] Vaccine (3+ yrs) 00:00:00 [facility] Influenza Virus 2021-05-27 Completed [facility] Vaccine (3+ yrs) 00:00:00 [facility] Influenza Virus 2021-05-27 Completed [facility] Vaccine (3+ yrs) 00:00:00 [facility] Influenza Virus 2021-05-27 Completed [facility] Vaccine (3+ yrs) 00:00:00 [facility] Influenza Virus 2021-05-27 Completed [facility] Vaccine (3+ yrs) 00:00:00 [facility] Influenza Virus 2021-05-27 Completed [facility] Vaccine (3+ yrs) 00:00:00 [facility] Influenza Virus 2021-05-27 Completed [facility] Vaccine (3+ yrs) 00:00:00 [facility] Influenza Virus 2021-05-27 Completed [facility] Vaccine (3+ yrs) 00:00:00 [facility] Influenza Virus 2021-05-27 Completed [facility] Vaccine (3+ yrs) 00:00:00 [facility] Influenza Virus 2021-05-27 Completed [facility] Vaccine (3+ yrs) 00:00:00 [facility] Influenza Virus 2021-05-27 Completed [facility] Vaccine (3+ yrs) 00:00:00 [facility] Influenza Virus 2021-05-27 Completed [facility] Vaccine (3+ yrs) 00:00:00 [facility] Influenza Virus 2021-05-27 Completed [facility] Vaccine (3+ yrs) 00:00:00 [facility] Influenza Virus 2021-05-27 Completed [facility] Vaccine (3+ yrs) 00:00:00 [facility] Influenza Virus 2021-05-27 Completed [facility] Vaccine (3+ yrs) 00:00:00 [facility] Influenza Virus 2021-05-27 Completed [facility] Vaccine (3+ yrs) 00:00:00 [facility] Influenza Virus 2021-05-27 Completed [facility] Vaccine (3+ yrs) 00:00:00 [facility] Influenza Virus 2021-05-27 Completed [facility] Vaccine (3+ yrs) 00:00:00 [facility] Influenza Virus 2021-05-27 Completed [facility] Vaccine (3+ yrs) 00:00:00 [facility] Influenza Virus 2021-05-27 Completed [facility] Vaccine (3+ yrs) 00:00:00 [facility] Influenza Virus 2021-05-27 Completed [facility] Vaccine (3+ yrs) 00:00:00 [facility] Influenza Virus 2021-05-27 Completed [facility] Vaccine (3+ yrs) 00:00:00 [facility] Influenza Virus 2021-05-27 Completed [facility] Vaccine (3+ yrs) 00:00:00 [facility] Influenza Virus 2021-05-27 Completed [facility] Vaccine (3+ yrs) 00:00:00 [facility] Influenza Virus 2021-05-27 Completed [facility] Vaccine (3+ yrs) 00:00:00 [facility] Influenza Virus 2021-05-27 Completed [facility] Vaccine (3+ yrs) 00:00:00 [facility] Influenza Virus 2021-05-27 Completed [facility] Vaccine (3+ yrs) 00:00:00 [facility] Influenza Virus 2021-05-27 Completed [facility] Vaccine (3+ yrs) 00:00:00 [facility] Influenza Virus 2021-05-27 Completed [facility] Vaccine (3+ yrs) 00:00:00 [facility] Influenza Virus 2021-05-27 Completed [facility] Vaccine (3+ yrs) 00:00:00 [facility] Influenza Virus 2021-05-27 Completed [facility] Vaccine (3+ yrs) 00:00:00 [facility] Influenza Virus 2021-05-27 Completed [facility] Vaccine (3+ yrs) 00:00:00 [facility] Influenza Virus 2021-05-27 Completed [facility] Vaccine (3+ yrs) 00:00:00 [facility] Influenza Virus 2021-05-27 Completed [facility] Vaccine (3+ yrs) 00:00:00 [facility] Influenza Virus 2021-05-27 Completed [facility] Vaccine (3+ yrs) 00:00:00 [facility] Influenza Virus 2021-05-27 Completed [facility] Vaccine (3+ yrs) 00:00:00 [facility] Influenza Virus 2021-05-27 Completed [facility] Vaccine (3+ yrs) 00:00:00 [facility] Influenza Virus 2021-05-27 Completed [facility] Vaccine (3+ yrs) 00:00:00 [facility] Influenza Virus 2021-05-27 Completed [facility] Vaccine (3+ yrs) 00:00:00 [facility] Influenza Virus 2021-05-27 Completed [facility] Vaccine (3+ yrs) 00:00:00 [facility] Influenza Virus 2021-05-27 Completed [facility] Vaccine (3+ yrs) 00:00:00 [facility] Influenza Virus 2021-05-27 Completed [facility] Vaccine (3+ yrs) 00:00:00 [facility] Influenza Virus 2021-05-27 Completed [facility] Vaccine (3+ yrs) 00:00:00 [facility] Influenza Virus 2021-05-27 Completed [facility] Vaccine (3+ yrs) 00:00:00 [facility] Influenza Virus 2021-05-27 Completed [facility] Vaccine (3+ yrs) 00:00:00 [facility] Influenza Virus 2021-05-27 Completed [facility] Vaccine (3+ yrs) 00:00:00 [facility] Influenza Virus 2021-05-27 Completed [facility] Vaccine (3+ yrs) 00:00:00 [facility] Influenza Virus 2021-05-27 Completed [facility] Vaccine (3+ yrs) 00:00:00 [facility] Influenza Virus 2021-05-27 Completed [facility] Vaccine (3+ yrs) 00:00:00 [facility] Influenza Virus 2021-05-27 Completed [facility] Vaccine (3+ yrs) 00:00:00 [facility] Influenza Virus 2021-05-27 Completed [facility] Vaccine (3+ yrs) 00:00:00 [facility] Influenza Virus 2021-05-27 Completed [facility] Vaccine (3+ yrs) 00:00:00 [facility] Influenza Virus 2021-05-27 Completed [facility] Vaccine (3+ yrs) 00:00:00 [facility] Influenza Virus 2021-05-27 Completed [facility] Vaccine (3+ yrs) 00:00:00 [facility] Influenza Virus 2021-05-27 Completed [facility] Vaccine (3+ yrs) 00:00:00 [facility] Influenza Virus 2021-05-27 Completed [facility] Vaccine (3+ yrs) 00:00:00 [facility] Influenza Virus 2021-05-27 Completed [facility] Vaccine (3+ yrs) 00:00:00 [facility] Influenza Virus 2021-05-27 Completed [facility] Vaccine (3+ yrs) 00:00:00 [facility] Influenza Virus 2021-05-27 Completed [facility] Vaccine (3+ yrs) 00:00:00 [facility] Influenza Virus 2021-05-27 Completed [facility] Vaccine (3+ yrs) 00:00:00 [facility] Influenza Virus 2021-05-27 Completed [facility] Vaccine (3+ yrs) 00:00:00 [facility] Influenza Virus 2021-05-27 Completed [facility] Vaccine (3+ yrs) 00:00:00 [facility] Influenza Virus 2021-05-27 Completed [facility] Vaccine (3+ yrs) 00:00:00 [facility] Influenza Virus 2021-05-27 Completed [facility] Vaccine (3+ yrs) 00:00:00 [facility] Influenza Virus 2021-05-27 Completed [facility] Vaccine (3+ yrs) 00:00:00 [facility] Influenza Virus 2021-05-27 Completed [facility] Vaccine (3+ yrs) 00:00:00 [facility] Influenza Virus 2021-05-27 Completed [facility] Vaccine (3+ yrs) 00:00:00 [facility] Influenza Virus 2021-05-27 Completed [facility] Vaccine (3+ yrs) 00:00:00 [facility] Influenza Virus 2021-05-27 Completed [facility] Vaccine (3+ yrs) 00:00:00 [facility] Influenza Virus 2021-05-27 Completed [facility] Vaccine (3+ yrs) 00:00:00 [facility] Influenza Virus 2021-05-27 Completed [facility] Vaccine (3+ yrs) 00:00:00 [facility] Influenza Virus 2021-05-27 Completed [facility] Vaccine (3+ yrs) 00:00:00 [facility] [facility] Influenza Virus 2021-05-27 Completed [facility] Vaccine (3+ yrs) 00:00:00 [facility] Influenza Virus 2021-05-27 Completed [facility] Vaccine (3+ yrs) 00:00:00 [facility] Influenza Virus 2021-05-27 Completed [facility] Vaccine (3+ yrs) 00:00:00 [facility] Influenza Virus 2021-05-27 Completed [facility] Vaccine (3+ yrs) 00:00:00 [facility] Influenza Virus 2021-05-27 Completed [facility] Vaccine (3+ yrs) 00:00:00 [facility] Influenza Virus 2021-05-27 Completed [facility] Vaccine (3+ yrs) 00:00:00 [facility] Influenza Virus 2021-05-27 Completed [facility] Vaccine (3+ yrs) 00:00:00 [facility] Influenza Virus 2021-05-27 Completed [facility] Vaccine (3+ yrs) 00:00:00 [facility] Influenza Virus 2021-05-27 Completed [facility] Vaccine (3+ yrs) 00:00:00 [facility] Influenza Virus 2021-05-27 Completed [facility] Vaccine (3+ yrs) 00:00:00 [facility] Influenza Virus 2021-05-27 Completed [facility] Vaccine (3+ yrs) 00:00:00 [facility] Influenza Virus 2021-05-27 Completed [facility] Vaccine (3+ yrs) 00:00:00 [facility] Influenza Virus 2021-05-27 Completed [facility] Vaccine (3+ yrs) 00:00:00 [facility] Influenza Virus 2021-05-27 Completed [facility] Vaccine (3+ yrs) 00:00:00 [facility] Influenza Virus 2021-05-27 Completed [facility] Vaccine (3+ yrs) 00:00:00 [facility] Influenza Virus 2021-05-27 Completed [facility] Vaccine (3+ yrs) 00:00:00 [facility] Influenza Virus 2021-05-27 Completed [facility] Vaccine (3+ yrs) 00:00:00 [facility] Influenza Virus 2021-05-27 Completed [facility] Vaccine (3+ yrs) 00:00:00 [facility] Influenza Virus 2021-05-27 Completed [facility] Vaccine (3+ yrs) 00:00:00 [facility] Influenza Virus 2021-05-27 Completed [facility] Vaccine (3+ yrs) 00:00:00 [facility] Influenza Virus 2021-05-27 Completed [facility] Vaccine (3+ yrs) 00:00:00 [facility] Influenza Virus 2021-05-27 Completed [facility] Vaccine (3+ yrs) 00:00:00 [facility] Influenza Virus 2021-05-27 Completed [facility] Vaccine (3+ yrs) 00:00:00 [facility] Influenza Virus 2021-05-27 Completed [facility] Vaccine (3+ yrs) 00:00:00 [facility] Influenza Virus 2021-05-27 Completed [facility] Vaccine (3+ yrs) 00:00:00 [facility] Influenza Virus 2021-05-27 Completed [facility] Vaccine (3+ yrs) 00:00:00 [facility] Influenza Virus 2021-05-27 Completed [facility] Vaccine (3+ yrs) 00:00:00 [facility] Influenza Virus 2021-05-27 Completed [facility] Vaccine (3+ yrs) 00:00:00 [facility] Influenza Virus 2021-05-27 Completed [facility] Vaccine (3+ yrs) 00:00:00 [facility] Influenza Virus 2021-05-27 Completed [facility] Vaccine (3+ yrs) 00:00:00 [facility] Influenza Virus 2021-05-27 Completed [facility] Vaccine (3+ yrs) 00:00:00 [facility] Influenza Virus 2021-05-27 Completed [facility] Vaccine (3+ yrs) 00:00:00 [facility] Influenza Virus 2021-05-27 Completed [facility] Vaccine (3+ yrs) 00:00:00 [facility] Influenza Virus 2021-05-27 Completed [facility] Vaccine (3+ yrs) 00:00:00 [facility] Influenza Virus 2021-05-27 Completed [facility] Vaccine (3+ yrs) 00:00:00 [facility] Influenza Virus 2021-05-27 Completed [facility] Vaccine (3+ yrs) 00:00:00 [facility] Influenza Virus 2021-05-27 Completed [facility] Vaccine (3+ yrs) 00:00:00 [facility] Influenza Virus 2021-05-27 Completed [facility] Vaccine (3+ yrs) 00:00:00 [facility] Influenza Virus 2021-05-27 Completed [facility] Vaccine (3+ yrs) 00:00:00 [facility] Influenza Virus 2021-05-27 Completed [facility] Vaccine (3+ yrs) 00:00:00 [facility] Influenza Virus 2021-05-27 Completed [facility] Vaccine (3+ yrs) 00:00:00 [facility] Influenza Virus 2021-05-27 Completed [facility] Vaccine (3+ yrs) 00:00:00 [facility] Influenza Virus 2021-05-27 Completed [facility] Vaccine (3+ yrs) 00:00:00 [facility] Influenza Virus 2021-05-27 Completed [facility] Vaccine (3+ yrs) 00:00:00 [facility] Influenza Virus 2021-05-27 Completed [facility] Vaccine (3+ yrs) 00:00:00 [facility] Influenza Virus 2021-05-27 Completed [facility] Vaccine (3+ yrs) 00:00:00 [facility] Influenza Virus 2021-05-27 Completed [facility] Vaccine (3+ yrs) 00:00:00 [facility] SARS-COV-2 COVID-19 2020-12-13 Completed [facility] of PFIZER VACCINE 00:00:00 [facility] SARS-COV-2 COVID-19 2020-12-13 Completed [facility] of PFIZER VACCINE 00:00:00 [facility] SARS-COV-2 COVID-19 2020-12-13 Completed [facility] of PFIZER VACCINE 00:00:00 [facility] SARS-COV-2 COVID-19 2020-12-13 Completed [facility] of PFIZER VACCINE 00:00:00 [facility] SARS-COV-2 COVID-19 2020-12-13 Completed [facility] of PFIZER VACCINE 00:00:00 [facility] SARS-COV-2 COVID-19 2020-12-13 Completed [facility] of PFIZER VACCINE 00:00:00 [facility] SARS-COV-2 COVID-19 2020-12-13 Completed [facility] of PFIZER VACCINE 00:00:00 [facility] SARS-COV-2 COVID-19 2020-12-13 Completed [facility] of PFIZER VACCINE 00:00:00 [facility] SARS-COV-2 COVID-19 2020-12-13 Completed [facility] of PFIZER VACCINE 00:00:00 [facility] SARS-COV-2 COVID-19 2020-12-13 Completed [facility] of PFIZER VACCINE 00:00:00 [facility] SARS-COV-2 COVID-19 2020-12-13 Completed [facility] of PFIZER VACCINE 00:00:00 [facility] SARS-COV-2 COVID-19 2020-12-13 Completed [facility] of PFIZER VACCINE 00:00:00 [facility] SARS-COV-2 COVID-19 2020-12-13 Completed [facility] of PFIZER VACCINE 00:00:00 [facility] SARS-COV-2 COVID-19 2020-12-13 Completed [facility] of PFIZER VACCINE 00:00:00 [facility] SARS-COV-2 COVID-19 2020-12-13 Completed [facility] of PFIZER VACCINE 00:00:00 [facility] SARS-COV-2 COVID-19 2020-12-13 Completed [facility] of PFIZER VACCINE 00:00:00 [facility] SARS-COV-2 COVID-19 2020-12-13 Completed [facility] of PFIZER VACCINE 00:00:00 [facility] SARS-COV-2 COVID-19 2020-12-13 Completed [facility] of PFIZER VACCINE 00:00:00 [facility] SARS-COV-2 COVID-19 2020-12-13 Completed [facility] of PFIZER VACCINE 00:00:00 [facility] SARS-COV-2 COVID-19 2020-12-13 Completed [facility] of PFIZER VACCINE 00:00:00 [facility] SARS-COV-2 COVID-19 2020-12-13 Completed [facility] of PFIZER VACCINE 00:00:00 [facility] SARS-COV-2 COVID-19 2020-12-13 Completed [facility] of PFIZER VACCINE 00:00:00 [facility] SARS-COV-2 COVID-19 2020-12-13 Completed [facility] of PFIZER VACCINE 00:00:00 [facility] SARS-COV-2 COVID-19 2020-12-13 Completed [facility] of PFIZER VACCINE 00:00:00 [facility] SARS-COV-2 COVID-19 2020-12-13 Completed [facility] of PFIZER VACCINE 00:00:00 [facility] SARS-COV-2 COVID-19 2020-12-13 Completed [facility] of PFIZER VACCINE 00:00:00 [facility] SARS-COV-2 COVID-19 2020-12-13 Completed [facility] PFIZER VACCINE 00:00:00 [facility] SARS-COV-2 COVID-19 2020-12-13 Completed [facility] of PFIZER VACCINE 00:00:00 [facility] SARS-COV-2 COVID-19 2020-12-13 Completed [facility] of PFIZER VACCINE 00:00:00 [facility] SARS-COV-2 COVID-19 2020-12-13 Completed [facility] PFIZER VACCINE 00:00:00 [facility] SARS-COV-2 COVID-19 2020-12-13 Completed [facility] of PFIZER VACCINE 00:00:00 [facility] SARS-COV-2 COVID-19 2020-12-13 Completed [facility] of PFIZER VACCINE 00:00:00 [facility] SARS-COV-2 COVID-19 2020-12-13 Completed [facility] PFIZER VACCINE 00:00:00 [facility] SARS-COV-2 COVID-19 2020-12-13 Completed [facility] of PFIZER VACCINE 00:00:00 [facility] SARS-COV-2 COVID-19 2020-12-13 Completed [facility] PFIZER VACCINE 00:00:00 [facility] SARS-COV-2 COVID-19 2020-12-13 Completed [facility] PFIZER VACCINE 00:00:00 [facility] SARS-COV-2 COVID-19 2020-12-13 Completed [facility] PFIZER VACCINE 00:00:00 [facility] SARS-COV-2 COVID-19 2020-12-13 Completed [facility] PFIZER VACCINE 00:00:00 [facility] SARS-COV-2 COVID-19 2020-12-13 Completed [facility] PFIZER VACCINE 00:00:00 [facility] SARS-COV-2 COVID-19 2020-12-13 Completed [facility] PFIZER VACCINE 00:00:00 [facility] SARS-COV-2 COVID-19 2020-12-13 Completed [facility] PFIZER VACCINE 00:00:00 [facility] SARS-COV-2 COVID-19 2020-12-13 Completed [facility] PFIZER VACCINE 00:00:00 [facility] SARS-COV-2 COVID-19 2020-12-13 Completed [facility] PFIZER VACCINE 00:00:00 [facility] SARS-COV-2 COVID-19 2020-12-13 Completed [facility] PFIZER VACCINE 00:00:00 [facility] SARS-COV-2 COVID-19 2020-12-13 Completed [facility] PFIZER VACCINE 00:00:00 [facility] SARS-COV-2 COVID-19 2020-12-13 Completed [facility] PFIZER VACCINE 00:00:00 [facility] SARS-COV-2 COVID-19 2020-12-13 Completed [facility] PFIZER VACCINE 00:00:00 [facility] SARS-COV-2 COVID-19 2020-12-13 Completed [facility] PFIZER VACCINE 00:00:00 [facility] SARS-COV-2 COVID-19 2020-12-13 Completed [facility] PFIZER VACCINE 00:00:00 [facility] SARS-COV-2 COVID-19 2020-12-13 Completed [facility] PFIZER VACCINE 00:00:00 [facility] SARS-COV-2 COVID-19 2020-12-13 Completed [facility] PFIZER VACCINE 00:00:00 [facility] SARS-COV-2 COVID-19 2020-12-13 Completed [facility] PFIZER VACCINE 00:00:00 [facility] SARS-COV-2 COVID-19 2020-12-13 Completed [facility] PFIZER VACCINE 00:00:00 [facility] SARS-COV-2 COVID-19 2020-12-13 Completed [facility] PFIZER VACCINE 00:00:00 [facility] SARS-COV-2 COVID-19 2020-12-13 Completed [facility] PFIZER VACCINE 00:00:00 [facility] SARS-COV-2 COVID-19 2020-12-13 Completed [facility] PFIZER VACCINE 00:00:00 [facility] SARS-COV-2 COVID-19 2020-12-13 Completed [facility] PFIZER VACCINE 00:00:00 [facility] SARS-COV-2 COVID-19 2020-12-13 Completed [facility] PFIZER VACCINE 00:00:00 [facility] SARS-COV-2 COVID-19 2020-12-13 Completed [facility] PFIZER VACCINE 00:00:00 [facility] SARS-COV-2 COVID-19 2020-12-13 Completed [facility] PFIZER VACCINE 00:00:00 [facility] SARS-COV-2 COVID-19 2020-12-13 Completed [facility] PFIZER VACCINE 00:00:00 [facility] SARS-COV-2 COVID-19 2020-12-13 Completed [facility] PFIZER VACCINE 00:00:00 [facility] SARS-COV-2 COVID-19 2020-12-13 Completed [facility] PFIZER VACCINE 00:00:00 [facility] SARS-COV-2 COVID-19 2020-12-13 Completed [facility] PFIZER VACCINE 00:00:00 [facility] SARS-COV-2 COVID-19 2020-12-13 Completed [facility] PFIZER VACCINE 00:00:00 [facility] SARS-COV-2 COVID-19 2020-12-13 Completed [facility] of PFIZER VACCINE 00:00:00 [facility] SARS-COV-2 COVID-19 2020-12-13 Completed [facility] PFIZER VACCINE 00:00:00 [facility] SARS-COV-2 COVID-19 2020-12-13 Completed [facility] PFIZER VACCINE 00:00:00 [facility] SARS-COV-2 COVID-19 2020-12-13 Completed [facility] PFIZER VACCINE 00:00:00 [facility] SARS-COV-2 COVID-19 2020-12-13 Completed [facility] PFIZER VACCINE 00:00:00 [facility] SARS-COV-2 COVID-19 2020-12-13 Completed [facility] PFIZER VACCINE 00:00:00 [facility] SARS-COV-2 COVID-19 2020-12-13 Completed [facility] PFIZER VACCINE 00:00:00 [facility] SARS-COV-2 COVID-19 2020-12-13 Completed [facility] PFIZER VACCINE 00:00:00 [facility] SARS-COV-2 COVID-19 2020-12-13 Completed [facility] PFIZER VACCINE 00:00:00 [facility] SARS-COV-2 COVID-19 2020-12-13 Completed [facility] PFIZER VACCINE 00:00:00 [facility] SARS-COV-2 COVID-19 2020-12-13 Completed [facility] PFIZER VACCINE 00:00:00 [facility] SARS-COV-2 COVID-19 2020-12-13 Completed [facility] PFIZER VACCINE 00:00:00 [facility] SARS-COV-2 COVID-19 2020-12-13 Completed [facility] PFIZER VACCINE 00:00:00 [facility] SARS-COV-2 COVID-19 2020-12-13 Completed [facility] PFIZER VACCINE 00:00:00 [facility] SARS-COV-2 COVID-19 2020-12-13 Completed [facility] PFIZER VACCINE 00:00:00 [facility] SARS-COV-2 COVID-19 2020-12-13 Completed [facility] PFIZER VACCINE 00:00:00 [facility] SARS-COV-2 COVID-19 2020-12-13 Completed [facility] PFIZER VACCINE 00:00:00 [facility] SARS-COV-2 COVID-19 2020-12-13 Completed [facility] PFIZER VACCINE 00:00:00 [facility] SARS-COV-2 COVID-19 2020-12-13 Completed [facility] PFIZER VACCINE 00:00:00 [facility] SARS-COV-2 COVID-19 2020-12-13 Completed [facility] PFIZER VACCINE 00:00:00 [facility] SARS-COV-2 COVID-19 2020-12-13 Completed [facility] PFIZER VACCINE 00:00:00 [facility] SARS-COV-2 COVID-19 2020-12-13 Completed [facility] PFIZER VACCINE 00:00:00 [facility] SARS-COV-2 COVID-19 2020-12-13 Completed [facility] PFIZER VACCINE 00:00:00 [facility] SARS-COV-2 COVID-19 2020-12-13 Completed [facility] PFIZER VACCINE 00:00:00 [facility] SARS-COV-2 COVID-19 2020-12-13 Completed [facility] PFIZER VACCINE 00:00:00 [facility] SARS-COV-2 COVID-19 2020-12-13 Completed [facility] PFIZER VACCINE 00:00:00 [facility] SARS-COV-2 COVID-19 2020-12-13 Completed [facility] PFIZER VACCINE 00:00:00 [facility] SARS-COV-2 COVID-19 2020-12-13 Completed [facility] PFIZER VACCINE 00:00:00 [facility] SARS-COV-2 COVID-19 2020-12-13 Completed [facility] PFIZER VACCINE 00:00:00 [facility] SARS-COV-2 COVID-19 2020-12-13 Completed [facility] PFIZER VACCINE 00:00:00 [facility] SARS-COV-2 COVID-19 2020-12-13 Completed [facility] PFIZER VACCINE 00:00:00 [facility] SARS-COV-2 COVID-19 2020-12-13 Completed [facility] PFIZER VACCINE 00:00:00 [facility] SARS-COV-2 COVID-19 2020-12-13 Completed [facility] PFIZER VACCINE 00:00:00 [facility] SARS-COV-2 COVID-19 2020-12-13 Completed [facility] PFIZER VACCINE 00:00:00 [facility] SARS-COV-2 COVID-19 2020-12-13 Completed [facility] PFIZER VACCINE 00:00:00 [facility] SARS-COV-2 COVID-19 2020-12-13 Completed [facility] PFIZER VACCINE 00:00:00 [facility] SARS-COV-2 COVID-19 2020-12-13 Completed [facility] PFIZER VACCINE 00:00:00 [facility] SARS-COV-2 COVID-19 2020-12-13 Completed [facility] PFIZER VACCINE 00:00:00 [facility] SARS-COV-2 COVID-19 2020-12-13 Completed [facility] PFIZER VACCINE 00:00:00 [facility] SARS-COV-2 COVID-19 2020-12-13 Completed [facility] PFIZER VACCINE 00:00:00 [facility] SARS-COV-2 COVID-19 2020-12-13 Completed [facility] PFIZER VACCINE 00:00:00 [facility] SARS-COV-2 COVID-19 2020-12-13 Completed [facility] PFIZER VACCINE 00:00:00 [facility] SARS-COV-2 COVID-19 2020-12-13 Completed [facility] PFIZER VACCINE 00:00:00 [facility] SARS-COV-2 COVID-19 2020-12-13 Completed [facility] PFIZER VACCINE 00:00:00 [facility] SARS-COV-2 COVID-19 2020-12-13 Completed [facility] PFIZER VACCINE 00:00:00 [facility] SARS-COV-2 COVID-19 2020-12-13 Completed [facility] PFIZER VACCINE 00:00:00 [facility] SARS-COV-2 COVID-19 2020-12-13 Completed [facility] PFIZER VACCINE 00:00:00 [facility] SARS-COV-2 COVID-19 2020-12-13 Completed [facility] PFIZER VACCINE 00:00:00 [facility] SARS-COV-2 COVID-19 2020-12-13 Completed [facility] PFIZER VACCINE 00:00:00 [facility] SARS-COV-2 COVID-19 2020-12-13 Completed [facility] PFIZER VACCINE 00:00:00 [facility] SARS-COV-2 COVID-19 2020-12-13 Completed [facility] PFIZER VACCINE 00:00:00 [facility] SARS-COV-2 COVID-19 2020-12-13 Completed [facility] PFIZER VACCINE 00:00:00 [facility] SARS-COV-2 COVID-19 2020-12-13 Completed [facility] PFIZER VACCINE 00:00:00 [facility] SARS-COV-2 COVID-19 2020-12-13 Completed [facility] PFIZER VACCINE 00:00:00 [facility] SARS-COV-2 COVID-19 2020-12-13 Completed [facility] PFIZER VACCINE 00:00:00 [facility] SARS-COV-2 COVID-19 2020-12-13 Completed [facility] PFIZER VACCINE 00:00:00 [facility] SARS-COV-2 COVID-19 2020-12-13 Completed [facility] PFIZER VACCINE 00:00:00 [facility] SARS-COV-2 COVID-19 2020-12-13 Completed [facility] PFIZER VACCINE 00:00:00 [facility] SARS-COV-2 COVID-19 2020-12-13 Completed [facility] PFIZER VACCINE 00:00:00 [facility] SARS-COV-2 COVID-19 2020-12-13 Completed [facility] PFIZER VACCINE 00:00:00 [facility] SARS-COV-2 COVID-19 2020-12-13 Completed [facility] PFIZER VACCINE 00:00:00 [facility] SARS-COV-2 COVID-19 2020-12-13 Completed [facility] PFIZER VACCINE 00:00:00 [facility] SARS-COV-2 COVID-19 2020-12-13 Completed [facility] PFIZER VACCINE 00:00:00 [facility] SARS-COV-2 COVID-19 2020-12-13 Completed [facility] PFIZER VACCINE 00:00:00 [facility] SARS-COV-2 COVID-19 2020-12-13 Completed [facility] PFIZER VACCINE 00:00:00 [facility] SARS-COV-2 COVID-19 2020-12-13 Completed [facility] PFIZER VACCINE 00:00:00 [facility] SARS-COV-2 COVID-19 2020-12-13 Completed [facility] PFIZER VACCINE 00:00:00 [facility] SARS-COV-2 COVID-19 2020-12-13 Completed [facility] PFIZER VACCINE 00:00:00 [facility] SARS-COV-2 COVID-19 2020-11-22 Completed [facility] PFIZER VACCINE 00:00:00 [facility] SARS-COV-2 COVID-19 2020-11-22 Completed [facility] PFIZER VACCINE 00:00:00 [facility] SARS-COV-2 COVID-19 2020-11-22 Completed [facility] PFIZER VACCINE 00:00:00 [facility] SARS-COV-2 COVID-19 2020-11-22 Completed [facility] PFIZER VACCINE 00:00:00 [facility] SARS-COV-2 COVID-19 2020-11-22 Completed [facility] PFIZER VACCINE 00:00:00 [facility] SARS-COV-2 COVID-19 2020-11-22 Completed [facility] PFIZER VACCINE 00:00:00 [facility] SARS-COV-2 COVID-19 2020-11-22 Completed [facility] PFIZER VACCINE 00:00:00 [facility] SARS-COV-2 COVID-19 2020-11-22 Completed [facility] PFIZER VACCINE 00:00:00 [facility] SARS-COV-2 COVID-19 2020-11-22 Completed [facility] PFIZER VACCINE 00:00:00 [facility] SARS-COV-2 COVID-19 2020-11-22 Completed [facility] PFIZER VACCINE 00:00:00 [facility] SARS-COV-2 COVID-19 2020-11-22 Completed [facility] PFIZER VACCINE 00:00:00 [facility] SARS-COV-2 COVID-19 2020-11-22 Completed [facility] PFIZER VACCINE 00:00:00 [facility] SARS-COV-2 COVID-19 2020-11-22 Completed [facility] PFIZER VACCINE 00:00:00 [facility] SARS-COV-2 COVID-19 2020-11-22 Completed [facility] PFIZER VACCINE 00:00:00 [facility] SARS-COV-2 COVID-19 2020-11-22 Completed [facility] PFIZER VACCINE 00:00:00 [facility] SARS-COV-2 COVID-19 2020-11-22 Completed [facility] PFIZER VACCINE 00:00:00 [facility] SARS-COV-2 COVID-19 2020-11-22 Completed [facility] PFIZER VACCINE 00:00:00 [facility] SARS-COV-2 COVID-19 2020-11-22 Completed [facility] PFIZER VACCINE 00:00:00 [facility] SARS-COV-2 COVID-19 2020-11-22 Completed [facility] PFIZER VACCINE 00:00:00 [facility] SARS-COV-2 COVID-19 2020-11-22 Completed [facility] PFIZER VACCINE 00:00:00 [facility] SARS-COV-2 COVID-19 2020-11-22 Completed [facility] PFIZER VACCINE 00:00:00 [facility] SARS-COV-2 COVID-19 2020-11-22 Completed [facility] PFIZER VACCINE 00:00:00 [facility] SARS-COV-2 COVID-19 2020-11-22 Completed [facility] PFIZER VACCINE 00:00:00 [facility] SARS-COV-2 COVID-19 2020-11-22 Completed [facility] PFIZER VACCINE 00:00:00 [facility] SARS-COV-2 COVID-19 2020-11-22 Completed [facility] PFIZER VACCINE 00:00:00 [facility] SARS-COV-2 COVID-19 2020-11-22 Completed [facility] PFIZER VACCINE 00:00:00 [facility] SARS-COV-2 COVID-19 2020-11-22 Completed [facility] PFIZER VACCINE 00:00:00 [facility] SARS-COV-2 COVID-19 2020-11-22 Completed [facility] PFIZER VACCINE 00:00:00 [facility] SARS-COV-2 COVID-19 2020-11-22 Completed [facility] PFIZER VACCINE 00:00:00 [facility] SARS-COV-2 COVID-19 2020-11-22 Completed [facility] PFIZER VACCINE 00:00:00 [facility] SARS-COV-2 COVID-19 2020-11-22 Completed [facility] PFIZER VACCINE 00:00:00 [facility] SARS-COV-2 COVID-19 2020-11-22 Completed [facility] PFIZER VACCINE 00:00:00 [facility] SARS-COV-2 COVID-19 2020-11-22 Completed [facility] PFIZER VACCINE 00:00:00 [facility] SARS-COV-2 COVID-19 2020-11-22 Completed [facility] PFIZER VACCINE 00:00:00 [facility] SARS-COV-2 COVID-19 2020-11-22 Completed [facility] PFIZER VACCINE 00:00:00 [facility] SARS-COV-2 COVID-19 2020-11-22 Completed [facility] PFIZER VACCINE 00:00:00 [facility] SARS-COV-2 COVID-19 2020-11-22 Completed [facility] PFIZER VACCINE 00:00:00 [facility] SARS-COV-2 COVID-19 2020-11-22 Completed [facility] PFIZER VACCINE 00:00:00 [facility] SARS-COV-2 COVID-19 2020-11-22 Completed [facility] PFIZER VACCINE 00:00:00 [facility] SARS-COV-2 COVID-19 2020-11-22 Completed [facility] PFIZER VACCINE 00:00:00 [facility] SARS-COV-2 COVID-19 2020-11-22 Completed [facility] PFIZER VACCINE 00:00:00 [facility] SARS-COV-2 COVID-19 2020-11-22 Completed [facility] PFIZER VACCINE 00:00:00 [facility] SARS-COV-2 COVID-19 2020-11-22 Completed [facility] PFIZER VACCINE 00:00:00 [facility] SARS-COV-2 COVID-19 2020-11-22 Completed [facility] PFIZER VACCINE 00:00:00 [facility] SARS-COV-2 COVID-19 2020-11-22 Completed [facility] PFIZER VACCINE 00:00:00 [facility] SARS-COV-2 COVID-19 2020-11-22 Completed [facility] PFIZER VACCINE 00:00:00 [facility] SARS-COV-2 COVID-19 2020-11-22 Completed [facility] PFIZER VACCINE 00:00:00 [facility] SARS-COV-2 COVID-19 2020-11-22 Completed [facility] PFIZER VACCINE 00:00:00 [facility] SARS-COV-2 COVID-19 2020-11-22 Completed [facility] PFIZER VACCINE 00:00:00 [facility] SARS-COV-2 COVID-19 2020-11-22 Completed [facility] PFIZER VACCINE 00:00:00 [facility] SARS-COV-2 COVID-19 2020-11-22 Completed [facility] PFIZER VACCINE 00:00:00 [facility] SARS-COV-2 COVID-19 2020-11-22 Completed [facility] PFIZER VACCINE 00:00:00 [facility] SARS-COV-2 COVID-19 2020-11-22 Completed [facility] PFIZER VACCINE 00:00:00 [facility] SARS-COV-2 COVID-19 2020-11-22 Completed [facility] PFIZER VACCINE 00:00:00 [facility] SARS-COV-2 COVID-19 2020-11-22 Completed [facility] PFIZER VACCINE 00:00:00 [facility] SARS-COV-2 COVID-19 2020-11-22 Completed [facility] PFIZER VACCINE 00:00:00 [facility] SARS-COV-2 COVID-19 2020-11-22 Completed [facility] PFIZER VACCINE 00:00:00 [facility] SARS-COV-2 COVID-19 2020-11-22 Completed [facility] PFIZER VACCINE 00:00:00 [facility] SARS-COV-2 COVID-19 2020-11-22 Completed [facility] PFIZER VACCINE 00:00:00 [facility] SARS-COV-2 COVID-19 2020-11-22 Completed [facility] PFIZER VACCINE 00:00:00 [facility] SARS-COV-2 COVID-19 2020-11-22 Completed [facility] PFIZER VACCINE 00:00:00 [facility] SARS-COV-2 COVID-19 2020-11-22 Completed [facility] PFIZER VACCINE 00:00:00 [facility] SARS-COV-2 COVID-19 2020-11-22 Completed [facility] PFIZER VACCINE 00:00:00 [facility] SARS-COV-2 COVID-19 2020-11-22 Completed [facility] PFIZER VACCINE 00:00:00 [facility] SARS-COV-2 COVID-19 2020-11-22 Completed [facility] PFIZER VACCINE 00:00:00 [facility] SARS-COV-2 COVID-19 2020-11-22 Completed [facility] PFIZER VACCINE 00:00:00 [facility] SARS-COV-2 COVID-19 2020-11-22 Completed [facility] PFIZER VACCINE 00:00:00 [facility] SARS-COV-2 COVID-19 2020-11-22 Completed [facility] PFIZER VACCINE 00:00:00 [facility] SARS-COV-2 COVID-19 2020-11-22 Completed [facility] PFIZER VACCINE 00:00:00 [facility] SARS-COV-2 COVID-19 2020-11-22 Completed [facility] PFIZER VACCINE 00:00:00 [facility] SARS-COV-2 COVID-19 2020-11-22 Completed [facility] PFIZER VACCINE 00:00:00 [facility] SARS-COV-2 COVID-19 2020-11-22 Completed [facility] PFIZER VACCINE 00:00:00 [facility] SARS-COV-2 COVID-19 2020-11-22 Completed [facility] PFIZER VACCINE 00:00:00 [facility] SARS-COV-2 COVID-19 2020-11-22 Completed [facility] PFIZER VACCINE 00:00:00 [facility] SARS-COV-2 COVID-19 2020-11-22 Completed [facility] PFIZER VACCINE 00:00:00 [facility] SARS-COV-2 COVID-19 2020-11-22 Completed [facility] PFIZER VACCINE 00:00:00 [facility] SARS-COV-2 COVID-19 2020-11-22 Completed [facility] PFIZER VACCINE 00:00:00 [facility] SARS-COV-2 COVID-19 2020-11-22 Completed [facility] PFIZER VACCINE 00:00:00 [facility] SARS-COV-2 COVID-19 2020-11-22 Completed [facility] PFIZER VACCINE 00:00:00 [facility] SARS-COV-2 COVID-19 2020-11-22 Completed [facility] PFIZER VACCINE 00:00:00 [facility] SARS-COV-2 COVID-19 2020-11-22 Completed [facility] PFIZER VACCINE 00:00:00 [facility] SARS-COV-2 COVID-19 2020-11-22 Completed [facility] PFIZER VACCINE 00:00:00 [facility] SARS-COV-2 COVID-19 2020-11-22 Completed [facility] PFIZER VACCINE 00:00:00 [facility] SARS-COV-2 COVID-19 2020-11-22 Completed [facility] PFIZER VACCINE 00:00:00 [facility] SARS-COV-2 COVID-19 2020-11-22 Completed [facility] PFIZER VACCINE 00:00:00 [facility] SARS-COV-2 COVID-19 2020-11-22 Completed [facility] PFIZER VACCINE 00:00:00 [facility] SARS-COV-2 COVID-19 2020-11-22 Completed [facility] PFIZER VACCINE 00:00:00 [facility] SARS-COV-2 COVID-19 2020-11-22 Completed [facility] PFIZER VACCINE 00:00:00 [facility] SARS-COV-2 COVID-19 2020-11-22 Completed [facility] PFIZER VACCINE 00:00:00 [facility] SARS-COV-2 COVID-19 2020-11-22 Completed [facility] PFIZER VACCINE 00:00:00 [facility] SARS-COV-2 COVID-19 2020-11-22 Completed [facility] PFIZER VACCINE 00:00:00 [facility] SARS-COV-2 COVID-19 2020-11-22 Completed [facility] PFIZER VACCINE 00:00:00 [facility] SARS-COV-2 COVID-19 2020-11-22 Completed [facility] PFIZER VACCINE 00:00:00 [facility] SARS-COV-2 COVID-19 2020-11-22 Completed [facility] PFIZER VACCINE 00:00:00 [facility] SARS-COV-2 COVID-19 2020-11-22 Completed [facility] PFIZER VACCINE 00:00:00 [facility] SARS-COV-2 COVID-19 2020-11-22 Completed [facility] PFIZER VACCINE 00:00:00 [facility] SARS-COV-2 COVID-19 2020-11-22 Completed [facility] PFIZER VACCINE 00:00:00 [facility] SARS-COV-2 COVID-19 2020-11-22 Completed [facility] PFIZER VACCINE 00:00:00 [facility] SARS-COV-2 COVID-19 2020-11-22 Completed [facility] PFIZER VACCINE 00:00:00 [facility] SARS-COV-2 COVID-19 2020-11-22 Completed [facility] PFIZER VACCINE 00:00:00 [facility] SARS-COV-2 COVID-19 2020-11-22 Completed [facility] PFIZER VACCINE 00:00:00 [facility] SARS-COV-2 COVID-19 2020-11-22 Completed [facility] PFIZER VACCINE 00:00:00 [facility] SARS-COV-2 COVID-19 2020-11-22 Completed [facility] PFIZER VACCINE 00:00:00 [facility] SARS-COV-2 COVID-19 2020-11-22 Completed [facility] PFIZER VACCINE 00:00:00 [facility] SARS-COV-2 COVID-19 2020-11-22 Completed [facility] PFIZER VACCINE 00:00:00 [facility] SARS-COV-2 COVID-19 2020-11-22 Completed [facility] PFIZER VACCINE 00:00:00 [facility] SARS-COV-2 COVID-19 2020-11-22 Completed [facility] PFIZER VACCINE 00:00:00 [facility] SARS-COV-2 COVID-19 2020-11-22 Completed [facility] PFIZER VACCINE 00:00:00 [facility] SARS-COV-2 COVID-19 2020-11-22 Completed [facility] PFIZER VACCINE 00:00:00 [facility] SARS-COV-2 COVID-19 2020-11-22 Completed [facility] PFIZER VACCINE 00:00:00 [facility] SARS-COV-2 COVID-19 2020-11-22 Completed [facility] PFIZER VACCINE 00:00:00 [facility] SARS-COV-2 COVID-19 2020-11-22 Completed [facility] PFIZER VACCINE 00:00:00 [facility] SARS-COV-2 COVID-19 2020-11-22 Completed [facility] PFIZER VACCINE 00:00:00 [facility] SARS-COV-2 COVID-19 2020-11-22 Completed [facility] PFIZER VACCINE 00:00:00 [facility] SARS-COV-2 COVID-19 2020-11-22 Completed [facility] PFIZER VACCINE 00:00:00 [facility] SARS-COV-2 COVID-19 2020-11-22 Completed [facility] PFIZER VACCINE 00:00:00 [facility] SARS-COV-2 COVID-19 2020-11-22 Completed [facility] PFIZER VACCINE 00:00:00 [facility] SARS-COV-2 COVID-19 2020-11-22 Completed [facility] PFIZER VACCINE 00:00:00 [facility] SARS-COV-2 COVID-19 2020-11-22 Completed [facility] PFIZER VACCINE 00:00:00 [facility] SARS-COV-2 COVID-19 2020-11-22 Completed [facility] PFIZER VACCINE 00:00:00 [facility] SARS-COV-2 COVID-19 2020-11-22 Completed [facility] PFIZER VACCINE 00:00:00 [facility] SARS-COV-2 COVID-19 2020-11-22 Completed [facility] PFIZER VACCINE 00:00:00 [facility] SARS-COV-2 COVID-19 2020-11-22 Completed [facility] PFIZER VACCINE 00:00:00 [facility] SARS-COV-2 COVID-19 2020-11-22 Completed [facility] PFIZER VACCINE 00:00:00 [facility] SARS-COV-2 COVID-19 2020-11-22 Completed [facility] PFIZER VACCINE 00:00:00 [facility] SARS-COV-2 COVID-19 2020-11-22 Completed [facility] PFIZER VACCINE 00:00:00 [facility] SARS-COV-2 COVID-19 2020-11-22 Completed [facility] PFIZER VACCINE 00:00:00 [facility] SARS-COV-2 COVID-19 2020-11-22 Completed [facility] PFIZER VACCINE 00:00:00 [facility] SARS-COV-2 COVID-19 2020-11-22 Completed [facility] PFIZER VACCINE 00:00:00 [facility] SARS-COV-2 COVID-19 2020-11-22 Completed [facility] PFIZER VACCINE 00:00:00 [facility] SARS-COV-2 COVID-19 2020-11-22 Completed [facility] PFIZER VACCINE 00:00:00 [facility] SARS-COV-2 COVID-19 2020-11-22 Completed [facility] PFIZER VACCINE 00:00:00 [facility] SARS-COV-2 COVID-19 2020-11-22 Completed [facility] PFIZER VACCINE 00:00:00 [facility] Influenza Virus 2020-05-27 Completed [facility] [...] 2019-08-10 Completed [facility] Polys[facility], 00:[facility]:00 [place] [facility] PPSV23 (PNEUMOVAX) [facility] TDAP (ADACEL) 2019-08-10 Completed [facility] VACCINE 00:00:00 [facility] TDAP 2019-08-10 Completed [facility] of 00:00:00 [facility] Pneumococcal 2019-08-10 Completed [facility] Polysaccharide, 00:00:00 [place] [facility] PPSV23 (PNEUMOVAX) [facility] TDAP (ADACEL) 2019-08-10 Completed [facility] VACCINE 00:00:00 [facility] TDAP 2019-08-10 Completed [facility] 00:00:00 [facility] Pneumococcal 2019-08-10 Completed [facility] Polysaccharide, 00:00:00 [place] [facility] PPSV23 (PNEUMOVAX) [facility] TDAP (ADACEL) 2019-08-10 Completed [facility] VACCINE 00:00:00 [facility] TDAP 2019-08-10 Completed [facility] of 00:00:00 [facility] Pneumococcal 2019-08-10 Completed [facility] Polysaccharide, 00:00:00 [place] [facility] PPSV23 (PNEUMOVAX) [facility] TDAP (ADACEL) 2019-08-10 Completed [facility] VACCINE 00:00:00 [facility] TDAP 2019-08-10 Completed [facility] of 00:00:00 [facility] Pneumococcal 2019-08-10 Completed [facility] Polysaccharide, 00:00:00 [place] [facility] PPSV23 (PNEUMOVAX) [facility] TDAP (ADACEL) 2019-08-10 Completed [facility] VACCINE 00:00:00 [facility] TDAP 2019-08-10 Completed [facility] of 00:00:00 [facility] Pneumococcal 2019-08-10 Completed [facility] Polysaccharide, 00:00:00 [place] [facility] PPSV23 (PNEUMOVAX) [facility] TDAP (ADACEL) 2019-08-10 Completed [facility] VACCINE 00:00:00 [facility] TDAP 2019-08-10 Completed [facility] 00:00:00 [facility] Pneumococcal 2019-08-10 Completed [facility] Polysaccharide, 00:00:00 [place] [facility] PPSV23 (PNEUMOVAX) [facility] TDAP (ADACEL) 2019-08-10 Completed [facility] VACCINE 00:00:00 [facility] TDAP 2019-08-10 Completed [facility] 00:00:00 [facility] Pneumococcal 2019-08-10 Completed [facility] Polysaccharide, 00:00:00 [place] [facility] PPSV23 (PNEUMOVAX) [facility] TDAP (ADACEL) 2019-08-10 Completed [facility] VACCINE 00:00:00 [facility] TDAP 2019-08-10 Completed [facility] of 00:00:00 [facility] Pneumococcal 2019-08-10 Completed [facility] Polysaccharide, 00:00:00 [place] [facility] PPSV23 (PNEUMOVAX) [facility] TDAP (ADACEL) 2019-08-10 Completed [facility] VACCINE 00:00:00 [facility] TDAP 2019-08-10 Completed [facility] 00:00:00 [facility] Pneumococcal 2019-08-10 Completed [facility] Polysaccharide, 00:00:00 [place] [facility] PPSV23 (PNEUMOVAX) [facility] TDAP (ADACEL) 2019-08-10 Completed [facility] VACCINE 00:00:00 [facility] TDAP 2019-08-10 Completed [facility] 00:00:00 [facility] Pneumococcal 2019-08-10 Completed [facility] f Polysaccharide, 00:00:00 [place] [facility] PPSV23 (PNEUMOVAX) [facility] TDAP (ADACEL) 2019-08-10 Completed [facility] VACCINE 00:00:00 [facility] TDAP 2019-08-10 Completed [facility] of 00:00:00 [facility] Pneumococcal 2019-08-10 Completed [facility] f Polysaccharide, 00:00:00 [place] [facility] PPSV23 (PNEUMOVAX) [facility] TDAP (ADACEL) 2019-08-10 Completed [facility] VACCINE 00:00:00 [facility] TDAP 2019-08-10 Completed [facility] 00:00:00 [facility] Pneumococcal 2019-08-10 Completed [facility] Polysaccharide, 00:00:00 [place] [facility] PPSV23 (PNEUMOVAX) [facility] TDAP (ADACEL) 2019-08-10 Completed [facility] VACCINE 00:00:00 [facility] TDAP 2019-08-10 Completed [facility] 00:00:00 [facility] Pneumococcal 2019-08-10 Completed [facility] f Polysaccharide, 00:00:00 [place] [facility] PPSV23 (PNEUMOVAX) [facility] TDAP (ADACEL) 2019-08-10 Completed [facility] VACCINE 00:00:00 [facility] TDAP 2019-08-10 Completed [facility] 00:00:00 [facility] Pneumococcal 2019-08-10 Completed [facility] f Polysaccharide, 00:00:00 [place] [facility] PPSV23 (PNEUMOVAX) [facility] TDAP (ADACEL) 2019-08-10 Completed [facility] VACCINE 00:00:00 [facility] TDAP 2019-08-10 Completed [facility] 00:00:00 [facility] Pneumococcal 2019-08-10 Completed [facility] f Polysaccharide, 00:00:00 [place] [facility] PPSV23 (PNEUMOVAX) [facility] TDAP (ADACEL) 2019-08-10 Completed [facility] VACCINE 00:00:00 [facility] TDAP 2019-08-10 Completed [facility] 00:00:00 [facility] Pneumococcal 2019-08-10 Completed [facility] Polysaccharide, 00:00:00 [place] [facility] PPSV23 (PNEUMOVAX) [facility] TDAP (ADACEL) 2019-08-10 Completed [facility] VACCINE 00:00:00 [facility] TDAP 2019-08-10 Completed [facility] 00:00:00 [facility] Pneumococcal 2019-08-10 Completed [facility] f Polysaccharide, 00:00:00 [place] [facility] PPSV23 (PNEUMOVAX) [facility] TDAP (ADACEL) 2019-08-10 Completed [facility] VACCINE 00:00:00 [facility] TDAP 2019-08-10 Completed [facility] of 00:00:00 [facility] Pneumococcal 2019-08-10 Completed [facility] f Polysaccharide, 00:00:00 [place] [facility] PPSV23 (PNEUMOVAX) [facility] TDAP (ADACEL) 2019-08-10 Completed [facility] VACCINE 00:00:00 [facility] TDAP 2019-08-10 Completed [facility] of 00:00:00 [facility] Pneumococcal 2019-08-10 Completed [facility] f Polysaccharide, 00:00:00 [place] [facility] PPSV23 (PNEUMOVAX) [facility] TDAP (ADACEL) 2019-08-10 Completed [facility] VACCINE 00:00:00 [facility] TDAP 2019-08-10 Completed [facility] of 00:00:00 [facility] Pneumococcal 2019-08-10 Completed [facility] f Polysaccharide, 00:00:00 [place] [facility] PPSV23 (PNEUMOVAX) [facility] TDAP (ADACEL) 2019-08-10 Completed [facility] VACCINE 00:00:00 [facility] TDAP 2019-08-10 Completed [facility] of 00:00:00 [facility] Pneumococcal 2019-08-10 Completed [facility] o f Polysaccharide, 00:00:00 [place] [facility] PPSV23 (PNEUMOVAX) [facility] TDAP (ADACEL) 2019-08-10 Completed [facility] of VACCINE 00:00:00 [facility] TDAP 2019-08-10 Completed [facility] of 00:00:00 [facility] Pneumococcal 2019-08-10 Completed [facility] o f Polysaccharide, 00:00:00 [place] [facility] PPSV23 (PNEUMOVAX) [facility] TDAP (ADACEL) 2019-08-10 Completed [facility] VACCINE 00:00:00 [facility] TDAP 2019-08-10 Completed [facility] of 00:00:00 [facility] Pneumococcal 2019-08-10 Completed [facility] f Polysaccharide, 00:00:00 [place] [facility] PPSV23 (PNEUMOVAX) [facility] TDAP (ADACEL) 2019-08-10 Completed [facility] VACCINE 00:00:00 [facility] TDAP 2019-08-10 Completed [facility] of 00:00:00 [facility] Pneumococcal 2019-08-10 Completed [facility] o f Polysaccharide, 00:00:00 [place] [facility] PPSV23 (PNEUMOVAX) [facility] TDAP (ADACEL) 2019-08-10 Completed [facility] VACCINE 00:00:00 [facility] TDAP 2019-08-10 Completed [facility] of 00:00:00 [facility] Pneumococcal 2019-08-10 Completed [facility] o f Polysaccharide, 00:00:00 [place] [facility] PPSV23 (PNEUMOVAX) [facility] TDAP (ADACEL) 2019-08-10 Completed [facility] of VACCINE 00:00:00 [facility] TDAP 2019-08-10 Completed [facility] 00:00:00 [facility] Pneumococcal 2019-08-10 Completed [facility] o f Polysaccharide, 00:00:00 [place] [facility] PPSV23 (PNEUMOVAX) [facility] TDAP (ADACEL) 2019-08-10 Completed [facility] of VACCINE 00:00:00 [facility] TDAP 2019-08-10 Completed [facility] of 00:00:00 [facility] Pneumococcal 2019-08-10 Completed [facility] o f Polysaccharide, 00:00:00 [place] [facility] PPSV23 (PNEUMOVAX) [facility] TDAP (ADACEL) 2019-08-10 Completed [facility] of VACCINE 00:00:00 [facility] TDAP 2019-08-10 Completed [facility] of 00:00:00 [facility] Pneumococcal 2019-08-10 Completed [facility] o f Polysaccharide, 00:00:00 [place] [facility] PPSV23 (PNEUMOVAX) [facility] TDAP (ADACEL) 2019-08-10 Completed [facility] of VACCINE 00:00:00 [facility] TDAP 2019-08-10 Completed [facility] of 00:00:00 [facility] Pneumococcal 2019-08-10 Completed [facility] o f Polysaccharide, 00:00:00 [place] [facility] PPSV23 (PNEUMOVAX) [facility] TDAP (ADACEL) 2019-08-10 Completed [facility] of VACCINE 00:00:00 [facility] TDAP 2019-08-10 Completed [facility] of 00:00:00 [facility] Pneumococcal 2019-08-10 Completed [facility] o f Polysaccharide, 00:00:00 [place] [facility] PPSV23 (PNEUMOVAX) [facility] TDAP (ADACEL) 2019-08-10 Completed [facility] of VACCINE 00:00:00 [facility] TDAP 2019-08-10 Completed [facility] of 00:00:00 [facility] Pneumococcal 2019-08-10 Completed [facility] o f Polysaccharide, 00:00:00 [place] [facility] PPSV23 (PNEUMOVAX) [facility] TDAP (ADACEL) 2019-08-10 Completed [facility] of VACCINE 00:00:00 [facility] TDAP 2019-08-10 Completed [facility] of 00:00:00 [facility] Pneumococcal 2019-08-10 Completed [facility] o f Polysaccharide, 00:00:00 [place] [facility] PPSV23 (PNEUMOVAX) [facility] TDAP (ADACEL) 2019-08-10 Completed [facility] of VACCINE 00:00:00 [facility] TDAP 2019-08-10 Completed [facility] of 00:00:00 [facility] Pneumococcal 2019-08-10 Completed [facility] o f Polysaccharide, 00:00:00 [place] [facility] PPSV23 (PNEUMOVAX) [facility] TDAP (ADACEL) 2019-08-10 Completed [facility] of VACCINE 00:00:00 [facility] TDAP 2019-08-10 Completed [facility] 00:00:00 [facility] Pneumococcal 2019-08-10 Completed [facility] o f Polysaccharide, 00:00:00 [place] [facility] PPSV23 (PNEUMOVAX) [facility] TDAP (ADACEL) 2019-08-10 Completed [facility] of VACCINE 00:00:00 [facility] TDAP 2019-08-10 Completed [facility] 00:00:00 [facility] Pneumococcal 2019-08-10 Completed [facility] o f Polysaccharide, 00:00:00 [place] [facility] PPSV23 (PNEUMOVAX) [facility] TDAP (ADACEL) 2019-08-10 Completed [facility] of VACCINE 00:00:00 [facility] TDAP 2019-08-10 Completed [facility] 00:00:00 [facility] Pneumococcal 2019-08-10 Completed [facility] Polysaccharide, 00:00:00 [place] Med ical PPSV23 (PNEUMOVAX) Branch TDAP (ADACEL) 2019-08-10 Completed [facility] VACCINE 00:00:00 [facility] TDAP 2019-08-10 Completed [facility] of 00:00:00 [facility] Pneumococcal 2019-08-10 Completed [facility] o f Polysaccharide, 00:00:00 [place] [facility] PPSV23 (PNEUMOVAX) Branch TDAP (ADACEL) 2019-08-10 Completed [facility] VACCINE 00:00:00 [facility] TDAP 2019-08-10 Completed [facility] 00:00:00 [facility] Pneumococcal 2019-08-10 Completed [facility] o f Polysaccharide, 00:00:00 [place] [facility] PPSV23 (PNEUMOVAX) Branch TDAP (ADACEL) 2019-08-10 Completed [facility] VACCINE 00:00:00 [facility] TDAP 2019-08-10 Completed [facility] 00:00:00 [facility] Pneumococcal 2019-08-10 Completed [facility] o f Polysaccharide, 00:00:00 [place] [facility] PPSV23 (PNEUMOVAX) Branch TDAP (ADACEL) 2019-08-10 Completed [facility] VACCINE 00:00:00 [facility] TDAP 2019-08-10 Completed [facility] 00:00:00 [facility] Pneumococcal 2019-08-10 Completed [facility] o f Polysaccharide, 00:00:00 [place] [facility] PPSV23 (PNEUMOVAX) Branch TDAP (ADACEL) 2019-08-10 Completed [facility] VACCINE 00:00:00 [facility] TDAP 2019-08-10 Completed [facility] 00:00:00 [facility] Pneumococcal 2019-08-10 Completed [facility] o f Polysaccharide, 00:00:00 [place] [facility] PPSV23 (PNEUMOVAX) Branch TDAP (ADACEL) 2019-08-10 Completed [facility] VACCINE 00:00:00 [facility] TDAP 2019-08-10 Completed [facility] of 00:00:00 [facility] Pneumococcal 2019-08-10 Completed [facility] o f Polysaccharide, 00:00:00 [place] [facility] PPSV23 (PNEUMOVAX) Branch TDAP (ADACEL) 2019-08-10 Completed [facility] VACCINE 00:00:00 [facility] TDAP 2019-08-10 Completed [facility] 00:00:00 [facility] Pneumococcal 2019-08-10 Completed [facility] o f Polysaccharide, 00:00:00 [place] [facility] PPSV23 (PNEUMOVAX) Branch TDAP (ADACEL) 2019-08-10 Completed [facility] VACCINE 00:00:00 [facility] TDAP 2019-08-10 Completed [facility] of 00:00:00 [facility] Pneumococcal 2019-08-10 Completed [facility] o f Polysaccharide, 00:00:00 [place] [facility] PPSV23 (PNEUMOVAX) Branch TDAP (ADACEL) 2019-08-10 Completed [facility] VACCINE 00:00:00 [facility] TDAP 2019-08-10 Completed [facility] 00:00:00 [facility] Pneumococcal 2019-08-10 Completed [facility] o f Polysaccharide, 00:00:00 [place] [facility] PPSV23 (PNEUMOVAX) Branch TDAP (ADACEL) 2019-08-10 Completed [facility] VACCINE 00:00:00 [facility] TDAP 2019-08-10 Completed [facility] 00:00:00 [facility] Pneumococcal 2019-08-10 Completed [facility] o f Polysaccharide, 00:00:00 [place] [facility] PPSV23 (PNEUMOVAX) Branch TDAP (ADACEL) 2019-08-10 Completed [facility] VACCINE 00:00:00 [facility] TDAP 2019-08-10 Completed [facility] of 00:00:00 [facility] Pneumococcal 2019-08-10 Completed [facility] o f Polysaccharide, 00:00:00 [place] [facility] PPSV23 (PNEUMOVAX) Branch TDAP (ADACEL) 2019-08-10 Completed [facility] VACCINE 00:00:00 [facility] TDAP 2019-08-10 Completed [facility] 00:00:00 [facility] Pneumococcal 2019-08-10 Completed [facility] o f Polysaccharide, 00:00:00 [place] [facility] PPSV23 (PNEUMOVAX) Branch TDAP (ADACEL) 2019-08-10 Completed [facility] VACCINE 00:00:00 [facility] TDAP 2019-08-10 Completed [facility] of 00:00:00 [facility] Pneumococcal 2019-08-10 Completed [facility] o f Polysaccharide, 00:00:00 [place] [facility] PPSV23 (PNEUMOVAX) Branch TDAP (ADACEL) 2019-08-10 Completed [facility] VACCINE 00:00:00 [facility] TDAP 2019-08-10 Completed [facility] of 00:00:00 [facility] Pneumococcal 2019-08-10 Completed [facility] o f Polysaccharide, 00:00:00 [place] [facility] PPSV23 (PNEUMOVAX) Branch TDAP (ADACEL) 2019-08-10 Completed [facility] VACCINE 00:00:00 [facility] TDAP 2019-08-10 Completed [facility] of 00:00:00 [facility] Pneumococcal 2019-08-10 Completed [facility] o f Polysaccharide, 00:00:00 [place] [facility] PPSV23 (PNEUMOVAX) Branch TDAP (ADACEL) 2019-08-10 Completed [facility] VACCINE 00:00:00 [facility] TDAP 2019-08-10 Completed [facility] of 00:00:00 [facility] Pneumococcal 2019-08-10 Completed [facility] o f Polysaccharide, 00:00:00 [place] [facility] PPSV23 (PNEUMOVAX) Branch TDAP (ADACEL) 2019-08-10 Completed [facility] VACCINE 00:00:00 [facility] TDAP 2019-08-10 Completed [facility] of 00:00:00 [facility] Pneumococcal 2019-08-10 Completed [facility] o f Polysaccharide, 00:00:00 [place] [facility] PPSV23 (PNEUMOVAX) Branch TDAP (ADACEL) 2019-08-10 Completed [facility] VACCINE 00:00:00 [facility] TDAP 2019-08-10 Completed [facility] of 00:00:00 [facility] Pneumococcal 2019-08-10 Completed [facility] o f Polysaccharide, 00:00:00 [place] [facility] PPSV23 (PNEUMOVAX) Branch TDAP (ADACEL) 2019-08-10 Completed [facility] VACCINE 00:00:00 [facility] TDAP 2019-08-10 Completed [facility] of 00:00:00 [facility] Pneumococcal 2019-08-10 Completed [facility] o f Polysaccharide, 00:00:00 [place] [facility] PPSV23 (PNEUMOVAX) Branch TDAP (ADACEL) 2019-08-10 Completed [facility] VACCINE 00:00:00 [facility] TDAP 2019-08-10 Completed [facility] of 00:00:00 [facility] Pneumococcal 2019-08-10 Completed [facility] o f Polysaccharide, 00:00:00 [place] [facility] PPSV23 (PNEUMOVAX) Branch TDAP (ADACEL) 2019-08-10 Completed [facility] VACCINE 00:00:00 [facility] TDAP 2019-08-10 Completed [facility] of 00:00:00 [facility] Pneumococcal 2019-08-10 Completed [facility] o f Polysaccharide, 00:00:00 [place] [facility] PPSV23 (PNEUMOVAX) Branch TDAP (ADACEL) 2019-08-10 Completed [facility] VACCINE 00:00:00 [facility] TDAP 2019-08-10 Completed [facility] of 00:00:00 [facility] Pneumococcal 2019-08-10 Completed [facility] o f Polysaccharide, 00:00:00 [place] [facility] PPSV23 (PNEUMOVAX) Branch TDAP (ADACEL) 2019-08-10 Completed [facility] VACCINE 00:00:00 [facility] TDAP 2019-08-10 Completed [facility] of 00:00:00 [facility] Pneumococcal 2019-08-10 Completed [facility] o f Polysaccharide, 00:00:00 [place] [facility] PPSV23 (PNEUMOVAX) Branch TDAP (ADACEL) 2019-08-10 Completed [facility] VACCINE 00:00:00 [facility] TDAP 2019-08-10 Completed [facility] 00:00:00 [facility] Pneumococcal 2019-08-10 Completed [facility] o f Polysaccharide, 00:00:00 [place] [facility] PPSV23 (PNEUMOVAX) Branch TDAP (ADACEL) 2019-08-10 Completed [facility] VACCINE 00:00:00 [facility] TDAP 2019-08-10 Completed [facility] of 00:00:00 [facility] Pneumococcal 2019-08-10 Completed [facility] o f Polysaccharide, 00:00:00 [place] [facility] PPSV23 (PNEUMOVAX) Branch TDAP (ADACEL) 2019-08-10 Completed [facility] VACCINE 00:00:00 [facility] TDAP 2019-08-10 Completed [facility] of 00:00:00 [facility] Pneumococcal 2019-08-10 Completed [facility] o f Polysaccharide, 00:00:00 [place] [facility] PPSV23 (PNEUMOVAX) Branch TDAP (ADACEL) 2019-08-10 Completed [facility] VACCINE 00:00:00 [facility] TDAP 2019-08-10 Completed [facility] 00:00:00 [facility] Pneumococcal 2019-08-10 Completed [facility] o f Polysaccharide, 00:00:00 [place] [facility] PPSV23 (PNEUMOVAX) Branch TDAP (ADACEL) 2019-08-10 Completed [facility] VACCINE 00:00:00 [place] [facility] TDAP 2019-08-10 Completed [facility] 00:00:00 [facility] Pneumococcal 2019-08-10 Completed [facility] o f Polysaccharide, 00:00:00 [place] [facility] PPSV23 (PNEUMOVAX) Branch TDAP (ADACEL) 2019-08-10 Completed [facility] VACCINE 00:00:00 [facility] TDAP 2019-08-10 Completed [facility] of 00:00:00 [facility] Pneumococcal 2019-08-10 Completed [facility] o f Polysaccharide, 00:00:00 [place] [facility] PPSV23 (PNEUMOVAX) Branch TDAP (ADACEL) 2019-08-10 Completed [facility] VACCINE 00:00:00 [facility] TDAP 2019-08-10 Completed [facility] of 00:00:00 [facility] Pneumococcal 2019-08-10 Completed [facility] o f Polysaccharide, 00:00:00 [place] [facility] PPSV23 (PNEUMOVAX) Branch TDAP (ADACEL) 2019-08-10 Completed [facility] of VACCINE 00:00:00 [facility] TDAP 2019-08-10 Completed [facility] of 00:00:00 [facility] Pneumococcal 2019-08-10 Completed [facility] o f Polysaccharide, 00:00:00 [place] [facility] PPSV23 (PNEUMOVAX) Branch TDAP (ADACEL) 2019-08-10 Completed [facility] VACCINE 00:00:00 [facility] TDAP 2019-08-10 Completed [facility] of 00:00:00 [facility] Pneumococcal 2019-08-10 Completed [facility] o f Polysaccharide, 00:00:00 [place] [facility] PPSV23 (PNEUMOVAX) Branch TDAP (ADACEL) 2019-08-10 Completed [facility] VACCINE 00:00:00 [facility] TDAP 2019-08-10 Completed [facility] of 00:00:00 [facility] Pneumococcal 2019-08-10 Completed [facility] o f Polysaccharide, 00:00:00 [place] [facility] PPSV23 (PNEUMOVAX) Branch TDAP (ADACEL) 2019-08-10 Completed [facility] VACCINE 00:00:00 [facility] TDAP 2019-08-10 Completed [facility] of 00:00:00 [facility] Pneumococcal 2019-08-10 Completed [facility] o f Polysaccharide, 00:00:00 [place] [facility] PPSV23 (PNEUMOVAX) Branch TDAP (ADACEL) 2019-08-10 Completed [facility] VACCINE 00:00:00 [facility] TDAP 2019-08-10 Completed [facility] of 00:00:00 [facility] Pneumococcal 2019-08-10 Completed [facility] o f Polysaccharide, 00:00:00 [place] [facility] PPSV23 (PNEUMOVAX) Branch TDAP (ADACEL) 2019-08-10 Completed [facility] VACCINE 00:00:00 [facility] TDAP 2019-08-10 Completed [facility] 00:00:00 [facility] Pneumococcal 2019-08-10 Completed [facility] o f Polysaccharide, 00:00:00 [place] [facility] PPSV23 (PNEUMOVAX) Branch TDAP (ADACEL) 2019-08-10 Completed [facility] VACCINE 00:00:00 [facility] TDAP 2019-08-10 Completed [facility] of 00:00:00 [facility] Pneumococcal 2019-08-10 Completed [facility] o f Polysaccharide, 00:00:00 [place] [facility] PPSV23 (PNEUMOVAX) Branch TDAP (ADACEL) 2019-08-10 Completed [facility] VACCINE 00:00:00 [facility] TDAP 2019-08-10 Completed [facility] of 00:00:00 [facility] Pneumococcal 2019-08-10 Completed [facility] o f Polysaccharide, 00:00:00 [facility] ical PPSV23 (PNEUMOVAX) Branch TDAP (ADACEL) 2019-08-10 Completed [facility] of VACCINE 00:00:00 [facility] TDAP 2019-08-10 Completed [facility] of 00:00:00 [facility] Pneumococcal 2019-08-10 Completed [facility] o f Polysaccharide, 00:00:00 [place] [facility] PPSV23 (PNEUMOVAX) Branch TDAP (ADACEL) 2019-08-10 Completed [facility] of VACCINE 00:00:00 [facility] TDAP 2019-08-10 Completed [facility] of 00:00:00 [facility] Pneumococcal 2019-08-10 Completed [facility] o f Polysaccharide, 00:00:00 [facility] ical PPSV23 (PNEUMOVAX) Branch TDAP (ADACEL) 2019-08-10 Completed [facility] of VACCINE 00:00:00 [facility] TDAP 2019-08-10 Completed [facility] of 00:00:00 [facility] Pneumococcal 2019-08-10 Completed [facility] o f Polysaccharide, 00:00:00 [place] [facility] PPSV23 (PNEUMOVAX) Branch TDAP (ADACEL) 2019-08-10 Completed [facility] of VACCINE 00:00:00 [facility] TDAP 2019-08-10 Completed [facility] 00:00:00 [facility] Pneumococcal 2019-08-10 Completed [facility] o f Polysaccharide, 00:00:00 [place] [facility] PPSV23 (PNEUMOVAX) Branch TDAP (ADACEL) 2019-08-10 Completed [facility] of VACCINE 00:00:00 [facility] TDAP 2019-08-10 Completed [facility] of 00:00:00 [facility] Pneumococcal 2019-08-10 Completed [facility] o f Polysaccharide, 00:00:00 [place] [facility] PPSV23 (PNEUMOVAX) Branch TDAP (ADACEL) 2019-08-10 Completed [facility] of VACCINE 00:00:00 [facility] TDAP 2019-08-10 Completed [facility] of 00:00:00 [facility] Pneumococcal 2019-08-10 Completed [facility] o f Polysaccharide, 00:00:00 [place] [facility] PPSV23 (PNEUMOVAX) Branch TDAP (ADACEL) 2019-08-10 Completed [facility] of VACCINE 00:00:00 [facility] TDAP 2019-08-10 Completed [facility] of 00:00:00 [facility] Pneumococcal 2019-08-10 Completed [facility] o f Polysaccharide, 00:00:00 [place] [facility] PPSV23 (PNEUMOVAX) Branch TDAP (ADACEL) 2019-08-10 Completed [facility] of VACCINE 00:00:00 [facility] TDAP 2019-08-10 Completed [facility] of 00:00:00 [facility] Pneumococcal 2019-08-10 Completed [facility] o f Polysaccharide, 00:00:00 [place] [facility] PPSV23 (PNEUMOVAX) Branch TDAP (ADACEL) 2019-08-10 Completed [facility] of VACCINE 00:00:00 [facility] TDAP 2019-08-10 Completed [facility] 00:00:00 [facility] Pneumococcal 2019-08-10 Completed [facility] o f Polysaccharide, 00:00:00 [place] [facility] PPSV23 (PNEUMOVAX) Branch TDAP (ADACEL) 2019-08-10 Completed [facility] of VACCINE 00:00:00 [facility] TDAP 2019-08-10 Completed [facility] 00:00:00 [facility] Pneumococcal 2019-08-10 Completed [facility] o f Polysaccharide, 00:00:00 [place] [facility] PPSV23 (PNEUMOVAX) Branch TDAP (ADACEL) 2019-08-10 Completed [facility] VACCINE 00:00:00 [place] [facility] TDAP 2019-08-10 Completed [facility] 00:00:00 [facility] Pneumococcal 2019-08-10 Completed [facility] o f Polysaccharide, 00:00:00 [place] [facility] PPSV23 (PNEUMOVAX) Branch TDAP (ADACEL) 2019-08-10 Completed [facility] of VACCINE 00:00:00 [facility] TDAP 2019-08-10 Completed [facility] 00:00:00 [facility] Pneumococcal 2019-08-10 Completed [facility] o f Polysaccharide, 00:00:00 [place] [facility] PPSV23 (PNEUMOVAX) Branch TDAP (ADACEL) 2019-08-10 Completed [facility] VACCINE 00:00:00 [facility] TDAP 2019-08-10 Completed [facility] 00:00:00 [facility] Pneumococcal 2019-08-10 Completed [facility] o f Polysaccharide, 00:00:00 [place] [facility] PPSV23 (PNEUMOVAX) Branch TDAP (ADACEL) 2019-08-10 Completed [facility] of VACCINE 00:00:00 [facility] TDAP 2019-08-10 Completed [facility] of 00:00:00 [facility] Pneumococcal 2019-08-10 Completed [facility] o f Polysaccharide, 00:00:00 [place] [facility] PPSV23 (PNEUMOVAX) Branch TDAP (ADACEL) 2019-08-10 Completed [facility] of VACCINE 00:00:00 [facility] TDAP 2019-08-10 Completed [facility] 00:00:00 [facility] Pneumococcal 2019-08-10 Completed [facility] o f Polysaccharide, 00:00:00 [place] [facility] PPSV23 (PNEUMOVAX) Branch TDAP (ADACEL) 2019-08-10 Completed [facility] of VACCINE 00:00:00 [facility] TDAP 2019-08-10 Completed [facility] of 00:00:00 [facility] Pneumococcal 2019-08-10 Completed [facility] o f Polysaccharide, 00:00:00 [place] [facility] PPSV23 (PNEUMOVAX) Branch TDAP (ADACEL) 2019-08-10 Completed [facility] of VACCINE 00:00:00 [facility] TDAP 2019-08-10 Completed [facility] of 00:00:00 [facility] Pneumococcal 2019-08-10 Completed [facility] o f Polysaccharide, 00:00:00 [place] [facility] PPSV23 (PNEUMOVAX) Branch TDAP (ADACEL) 2019-08-10 Completed [facility] of VACCINE 00:00:00 [facility] TDAP 2019-08-10 Completed [facility] of 00:00:00 [facility] Pneumococcal 2019-08-10 Completed [facility] o f Polysaccharide, 00:00:00 [place] [facility] PPSV23 (PNEUMOVAX) Branch TDAP (ADACEL) 2019-08-10 Completed [facility] of VACCINE 00:00:00 [facility] Branch TDAP 2019-08-10 Completed [facility] 00:00:00 [facility] Pneumococcal 2019-08-10 Completed [facility] o f Polysaccharide, 00:00:00 [place] [facility] PPSV23 (PNEUMOVAX) Branch TDAP (ADACEL) 2019-08-10 Completed [facility] of VACCINE 00:00:00 [facility] TDAP 2019-08-10 Completed [facility] of 00:00:00 [facility] Pneumococcal 2019-08-10 Completed [facility] o f Polysaccharide, 00:00:00 [place] [facility] PPSV23 (PNEUMOVAX) Branch TDAP (ADACEL) 2019-08-10 Completed [facility] of VACCINE 00:00:00 [facility] TDAP 2019-08-10 Completed [facility] of 00:00:00 [facility] Pneumococcal 2019-08-10 Completed [facility] o f Polysaccharide, 00:00:00 [place] [facility] PPSV23 (PNEUMOVAX) Branch TDAP (ADACEL) 2019-08-10 Completed [facility] of VACCINE 00:00:00 [facility] TDAP 2019-08-10 Completed [facility] of 00:00:00 [facility] Pneumococcal 2019-08-10 Completed [facility] o f Polysaccharide, 00:00:00 [place] [facility] PPSV23 (PNEUMOVAX) Branch TDAP (ADACEL) 2019-08-10 Completed [facility] of VACCINE 00:00:00 [facility] TDAP 2019-08-10 Completed [facility] of 00:00:00 [facility] Pneumococcal 2019-08-10 Completed [facility] o f Polysaccharide, 00:00:00 [place] [facility] PPSV23 (PNEUMOVAX) Branch TDAP (ADACEL) 2019-08-10 Completed [facility] of VACCINE 00:00:00 [facility] TDAP 2019-08-10 Completed [facility] of 00:00:00 [facility] Pneumococcal 2019-08-10 Completed [facility] o f Polysaccharide, 00:00:00 [place] [facility] PPSV23 (PNEUMOVAX) Branch TDAP (ADACEL) 2019-08-10 Completed [facility] of VACCINE 00:00:00 [facility] TDAP 2019-08-10 Completed [facility] of 00:00:00 [facility] Pneumococcal 2019-08-10 Completed [facility] o f Polysaccharide, 00:00:00 [place] [facility] PPSV23 (PNEUMOVAX) Branch TDAP (ADACEL) 2019-08-10 Completed [facility] of VACCINE 00:00:00 [facility] TDAP 2019-08-10 Completed [facility] of 00:00:00 [facility] Pneumococcal 2019-08-10 Completed [facility] o f Polysaccharide, 00:00:00 [place] [facility] PPSV23 (PNEUMOVAX) Branch TDAP (ADACEL) 2019-08-10 Completed [facility] of VACCINE 00:00:00 [facility] TDAP 2019-08-10 Completed [facility] of 00:00:00 [facility] Pneumococcal 2019-08-10 Completed [facility] o f Polysaccharide, 00:00:00 [place] [facility] PPSV23 (PNEUMOVAX) Branch TDAP (ADACEL) 2019-08-10 Completed [facility] of VACCINE 00:00:00 [facility] TDAP 2019-08-10 Completed [facility] of 00:00:00 [facility] Pneumococcal 2019-08-10 Completed [facility] o f Polysaccharide, 00:00:00 [place] [facility] PPSV23 (PNEUMOVAX) Branch TDAP (ADACEL) 2019-08-10 Completed [facility] of VACCINE 00:00:00 [facility] TDAP 2019-08-10 Completed [facility] of 00:00:00 [facility] Pneumococcal 2019-08-10 Completed [facility] o f Polysaccharide, 00:00:00 [place] [facility] PPSV23 (PNEUMOVAX) Branch TDAP (ADACEL) 2019-08-10 Completed [facility] of VACCINE 00:00:00 [facility] TDAP 2019-08-10 Completed [facility] of 00:00:00 [facility] Pneumococcal 2019-08-10 Completed [facility] o f Polysaccharide, 00:00:00 [place] [facility] PPSV23 (PNEUMOVAX) Branch TDAP (ADACEL) 2019-08-10 Completed [facility] of VACCINE 00:00:00 [facility] TDAP 2019-08-10 Completed [facility] of 00:00:00 [facility] Pneumococcal 2019-08-10 Completed [facility] o f Polysaccharide, 00:00:00 [place] [facility] PPSV23 (PNEUMOVAX) Branch TDAP (ADACEL) 2019-08-10 Completed [facility] of VACCINE 00:00:00 [facility] TDAP 2019-08-10 Completed [facility] of 00:00:00 [facility] Pneumococcal 2019-08-10 Completed [facility] o f Polysaccharide, 00:00:00 [place] [facility] PPSV23 (PNEUMOVAX) Branch TDAP (ADACEL) 2019-08-10 Completed [facility] of VACCINE 00:00:00 [facility] TDAP 2019-08-10 Completed [facility] of 00:00:00 [facility] Pneumococcal 2019-08-10 Completed [facility] o f Polysaccharide, 00:00:00 [place] [facility] PPSV23 (PNEUMOVAX) Branch TDAP (ADACEL) 2019-08-10 Completed [facility] of VACCINE 00:00:00 [facility] TDAP 2019-08-10 Completed [facility] of 00:00:00 [facility] Pneumococcal 2019-08-10 Completed [facility] o f Polysaccharide, 00:00:00 [place] [facility] PPSV23 (PNEUMOVAX) Branch TDAP (ADACEL) 2019-08-10 Completed [facility] VACCINE 00:00:00 [facility] TDAP 2019-08-10 Completed [facility] 00:00:00 [facility] Pneumococcal 2019-08-10 Completed [facility] o f Polysaccharide, 00:00:00 [place] [facility] PPSV23 (PNEUMOVAX) Branch TDAP (ADACEL) 2019-08-10 Completed [facility] VACCINE 00:00:00 [facility] TDAP 2019-08-10 Completed [facility] of 00:00:00 [facility] Pneumococcal 2019-08-10 Completed University o f Polysaccharide, 00:00:00 [place] [facility] PPSV23 (PNEUMOVAX) Branch TDAP (ADACEL) 2019-08-10 Completed [facility] of VACCINE 00:00:00 [facility] TDAP 2019-08-10 Completed [facility] of 00:00:00 [facility] Pneumococcal 2019-08-10 Completed [facility] o f Polysaccharide, 00:00:00 [place] [facility] PPSV23 (PNEUMOVAX) Branch TDAP (ADACEL) 2019-08-10 Completed [facility] of VACCINE 00:00:00 [facility] TDAP 2019-08-10 Completed [facility] of 00:00:00 [facility] Pneumococcal 2019-08-10 Completed [facility] o f Polysaccharide, 00:00:00 [place] [facility] PPSV23 (PNEUMOVAX) Branch TDAP (ADACEL) 2019-08-10 Completed [facility] of VACCINE 00:00:00 [facility] TDAP 2019-08-10 Completed [facility] of 00:00:00 [facility] Pneumococcal 2019-08-10 Completed [facility] o f Polysaccharide, 00:00:00 [place] [facility] PPSV23 (PNEUMOVAX) Branch TDAP (ADACEL) 2019-08-10 Completed [facility] of VACCINE 00:00:00 [facility] TDAP 2019-08-10 Completed [facility] of 00:00:00 [facility] Pneumococcal 2019-08-10 Completed [facility] o f Polysaccharide, 00:00:00 [place] [facility] PPSV23 (PNEUMOVAX) Branch TDAP (ADACEL) 2019-08-10 Completed [facility] of VACCINE 00:00:00 [facility] TDAP 2019-08-10 Completed [facility] of 00:00:00 [facility] Pneumococcal 2019-08-10 Completed [facility] o f Polysaccharide, 00:00:00 [place] [facility] PPSV23 (PNEUMOVAX) Branch TDAP (ADACEL) 2019-08-10 Completed [facility] of VACCINE 00:00:00 [facility] TDAP 2019-08-10 Completed [facility] of 00:00:00 [facility] Pneumococcal 2019-08-10 Completed [facility] o f Polysaccharide, 00:00:00 [place] [facility] PPSV23 (PNEUMOVAX) Branch TDAP (ADACEL) 2019-08-10 Completed [facility] of VACCINE 00:00:00 [facility] TDAP 2019-08-10 Completed [facility] of 00:00:00 [facility] Pneumococcal 2019-08-10 Completed [facility] o f Polysaccharide, 00:00:00 [place] [facility] PPSV23 (PNEUMOVAX) Branch TDAP (ADACEL) 2019-08-10 Completed [facility] of VACCINE 00:00:00 [facility] TDAP 2019-08-10 Completed [facility] of 00:00:00 [facility] Pneumococcal 2019-08-10 Completed [facility] o f Polysaccharide, 00:00:00 [place] [facility] PPSV23 (PNEUMOVAX) Branch TDAP (ADACEL) 2019-08-10 Completed [facility] of VACCINE 00:00:00 [facility] TDAP 2019-08-10 Completed [facility] of 00:00:00 [facility] Pneumococcal 2019-08-10 Completed [facility] o f Polysaccharide, 00:00:00 [place] [facility] PPSV23 (PNEUMOVAX) Branch TDAP (ADACEL) 2019-08-10 Completed [facility] of VACCINE 00:00:00 [facility] TDAP 2019-08-10 Completed [facility] of 00:00:00 [facility] Pneumococcal 2019-08-10 Completed [facility] o f Polysaccharide, 00:00:00 [place] [facility] PPSV23 (PNEUMOVAX) Branch TDAP (ADACEL) 2019-08-10 Completed [facility] of VACCINE 00:00:00 [facility] TDAP 2019-08-10 Completed [facility] of 00:00:00 [facility] Pneumococcal 2019-08-10 Completed [facility] o f Polysaccharide, 00:00:00 [place] [facility] PPSV23 (PNEUMOVAX) Branch TDAP (ADACEL) 2019-08-10 Completed [facility] of VACCINE 00:00:00 [facility] TDAP 2019-08-10 Completed [facility] of 00:00:00 [facility] Pneumococcal 2019-08-10 Completed [facility] o f Polysaccharide, 00:00:00 [place] [facility] PPSV23 (PNEUMOVAX) Branch TDAP (ADACEL) 2019-08-10 Completed [facility] of VACCINE 00:00:00 [facility] TDAP 2019-08-10 Completed [facility] of 00:00:00 [facility] Pneumococcal 2019-08-10 Completed University o f Polysaccharide, 00:00:00 [place] [facility] PPSV23 (PNEUMOVAX) Branch TDAP (ADACEL) 2019-08-10 Completed [facility] of VACCINE 00:00:00 [facility] TDAP 2019-08-10 Completed [facility] of 00:00:00 [facility] Pneumococcal 2019-08-10 Completed [facility] o f Polysaccharide, 00:00:00 [place] [facility] PPSV23 (PNEUMOVAX) Branch TDAP (ADACEL) 2019-08-10 Completed [facility] of VACCINE 00:00:00 [facility] TDAP 2019-08-10 Completed [facility] of 00:00:00 [facility] Pneumococcal 2019-08-10 Completed [facility] o f Polysaccharide, 00:00:00 [place] [facility] PPSV23 (PNEUMOVAX) Branch TDAP (ADACEL) 2019-08-10 Completed [facility] of VACCINE 00:00:00 [facility] TDAP 2019-08-10 Completed [facility] of 00:00:00 [facility] Pneumococcal 2019-08-10 Completed [facility] o f Polysaccharide, 00:00:00 [place] [facility] PPSV23 (PNEUMOVAX) Branch TDAP (ADACEL) 2019-08-10 Completed [facility] of VACCINE 00:00:00 [facility] TDAP 2019-08-10 Completed [facility] of 00:00:00 [facility] Pneumococcal 2019-08-10 Completed [facility] o f Polysaccharide, 00:00:00 [place] [facility] PPSV23 (PNEUMOVAX) Branch TDAP (ADACEL) 2019-08-10 Completed [facility] of VACCINE 00:00:00 [facility] TDAP 2019-08-10 Completed [facility] of 00:00:00 [facility] Pneumococcal 2019-08-10 Completed [facility] o f Polysaccharide, 00:00:00 [place] [facility] PPSV23 (PNEUMOVAX) Branch TDAP (ADACEL) 2019-08-10 Completed [facility] of VACCINE 00:00:00 [facility] TDAP 2019-08-10 Completed [facility] of 00:00:00 [facility] Pneumococcal 2019-08-10 Completed University o f Polysaccharide, 00:00:00 [facility] ical PPSV23 (PNEUMOVAX) Branch TDAP (ADACEL) 2019-08-10 Completed University of VACCINE 00:00:00 [facility] TDAP 2019-08-10 Completed [facility] of 00:00:00 [facility] Pneumococcal 2019-08-10 Completed University o f Polysaccharide, 00:00:00 [place] [facility] PPSV23 (PNEUMOVAX) Branch TDAP (ADACEL) 2019-08-10 Completed [facility] of VACCINE 00:00:00 [facility] TDAP 2019-08-10 Completed [facility] of 00:00:00 [facility] Pneumococcal 2019-08-10 Completed University o f Polysaccharide, 00:00:00 [place] [facility] PPSV23 (PNEUMOVAX) Branch TDAP (ADACEL) 2019-08-10 Completed [facility] of VACCINE 00:00:00 [facility] TDAP 2019-08-10 Completed [facility] of 00:00:00 [facility] Pneumococcal 2019-08-10 Completed University o f Polysaccharide, 00:00:00 [place] [facility] PPSV23 (PNEUMOVAX) Branch TDAP (ADACEL) 2019-08-10 Completed [facility] of VACCINE 00:00:00 [facility] TDAP 2019-08-10 Completed [facility] of 00:00:00 [facility] Influenza Virus 2019-07-04 Completed Universit y of Vaccine 00:00:00 [facility] Influenza Virus 2019-07-04 Completed Universit y of Vaccine [facility] 00:00:00 [place] [facility], Preserv and ABX Branc h Free 18-64 YRS Influenza Virus 2019-07-04 Completed Universit y of Vaccine 00:00:00 [facility] Influenza Virus 2019-07-04 Completed Universit y of Vaccine [place] 00:00:00 [place] [facility], Preserv and ABX Branc h Free 18-64 YRS Influenza Virus 2019-07-04 Completed Universit y of Vaccine 00:00:00 [facility] Influenza Virus 2019-07-04 Completed Universit y of Vaccine [place] 00:00:00 [place] [facility], Preserv and ABX Branc h Free 18-64 YRS Influenza Virus 2019-07-04 Completed Universit y of Vaccine 00:00:00 [facility] Influenza Virus 2019-07-04 Completed Universit y of Vaccine [place] [place] 00:00:00 [place] [facility], Preserv and ABX Branc h Free 18-64 YRS Influenza Virus 2019-07-04 Completed Universit y of Vaccine 00:00:00 [facility] Influenza Virus 2019-07-04 Completed Universit y of Vaccine [place] 00:00:00 [place] [facility], Preserv and ABX Branc h Free 18-64 YRS Influenza Virus 2019-07-04 Completed Universit y of Vaccine 00:00:00 [facility] Influenza Virus 2019-07-04 Completed Universit y of Vaccine [place] 00:00:00 [place] [facility], Preserv and ABX Branc h Free 18-64 YRS Influenza Virus 2019-07-04 Completed Universit y of Vaccine 00:00:00 [facility] Influenza Virus 2019-07-04 Completed Universit y of Vaccine [place] [place] 00:00:00 [place] [facility], Preserv and ABX Branc h Free 18-64 YRS Influenza Virus 2019-07-04 Completed Universit y of Vaccine 00:00:00 [facility] Influenza Virus 2019-07-04 Completed Universit y of Vaccine [place] 00:00:00 [place] [facility], Preserv and ABX Branc h Free 18-64 YRS Influenza Virus 2019-07-04 Completed Universit y of Vaccine 00:00:00 [facility] Influenza Virus 2019-07-04 Completed Universit y of Vaccine [place] 00:00:00 [place] [facility], Preserv and ABX Branc h Free 18-64 YRS Influenza Virus 2019-07-04 Completed Universit y of Vaccine 00:00:00 [facility] Influenza Virus 2019-07-04 Completed Universit y of Vaccine [place] 00:00:00 [place] [facility], Preserv and ABX Branc h Free 18-64 YRS Influenza Virus 2019-07-04 Completed Universit y of Vaccine 00:00:00 [facility] Influenza Virus 2019-07-04 Completed Universit y of Vaccine [place] 00:00:00 [place] [facility], Preserv and ABX Branc h Free 18-64 YRS Influenza Virus 2019-07-04 Completed Universit y of Vaccine 00:00:00 [facility] Influenza Virus 2019-07-04 Completed Universit y of Vaccine [place] 00:00:00 [place] [facility], Preserv and ABX Branc h Free 18-64 YRS Influenza Virus 2019-07-04 Completed Universit y of Vaccine 00:00:00 [facility] Influenza Virus 2019-07-04 Completed Universit y of Vaccine [place] 00:00:00 [place] [facility], Preserv and ABX Branc h Free 18-64 YRS Influenza Virus 2019-07-04 Completed Universit y of Vaccine 00:00:00 [facility] Influenza Virus 2019-07-04 Completed Universit y of Vaccine [place] 00:00:00 [place] [facility], Preserv and ABX Branc h Free 18-64 YRS Influenza Virus 2019-07-04 Completed Universit y of Vaccine 00:00:00 [facility] Influenza Virus 2019-07-04 Completed Universit y of Vaccine [place] 00:00:00 [place] [facility], Preserv and ABX Branc h Free 18-64 YRS Influenza Virus 2019-07-04 Completed Universit y of Vaccine 00:00:00 [facility] Influenza Virus 2019-07-04 Completed Universit y of Vaccine [place] [place] 00:00:00 [place] [facility], Preserv and ABX Branc h Free 18-64 YRS Influenza Virus 2019-07-04 Completed Universit y of Vaccine 00:00:00 [facility] Influenza Virus 2019-07-04 Completed Universit y of Vaccine [place] 00:00:00 [place] [facility], Preserv and ABX Branc h Free 18-64 YRS Influenza Virus 2019-07-04 Completed Universit y of Vaccine 00:00:00 [facility] Influenza Virus 2019-07-04 Completed Universit y of Vaccine [place] 00:00:00 [place] [facility], Preserv and ABX Branc h Free 18-64 YRS Influenza Virus 2019-07-04 Completed Universit y of Vaccine 00:00:00 [facility] Influenza Virus 2019-07-04 Completed Universit y of Vaccine [place] 00:00:00 [place] [facility], Preserv and ABX Branc h Free 18-64 YRS Influenza Virus 2019-07-04 Completed Universit y of Vaccine 00:00:00 [facility] Influenza Virus 2019-07-04 Completed Universit y of Vaccine [place] 00:00:00 [place] [facility], Preserv and ABX Branc h Free 18-64 YRS Influenza Virus 2019-07-04 Completed Universit y of Vaccine 00:00:00 [facility] Influenza Virus 2019-07-04 Completed Universit y of Vaccine [place] 00:00:00 [place] [facility], Preserv and ABX Branc h Free 18-64 YRS Influenza Virus 2019-07-04 Completed Universit y of Vaccine 00:00:00 [facility] Influenza Virus 2019-07-04 Completed Universit y of Vaccine [place] 00:00:00 [place] [facility], Preserv and ABX Branc h Free 18-64 YRS Influenza Virus 2019-07-04 Completed Universit y of Vaccine 00:00:00 [facility] Influenza Virus 2019-07-04 Completed Universit y of Vaccine [place] 00:00:00 [place] [facility], Preserv and ABX Branc h Free 18-64 YRS Influenza Virus 2019-07-04 Completed Universit y of Vaccine 00:00:00 [facility] Influenza Virus 2019-07-04 Completed [facility]it y of Vaccine [place] [place] 00:00:00 [place] [facility], Preserv and ABX Branc h Free 18-64 YRS Influenza Virus 2019-07-04 Completed Universit y of Vaccine 00:00:00 [facility] Influenza Virus 2019-07-04 Completed Universit y of Vaccine [place] [place] 00:00:00 [place] [facility], Preserv and ABX Branc h Free 18-64 YRS Influenza Virus 2019-07-04 Completed Universit y of Vaccine 00:00:00 [facility] Influenza Virus 2019-07-04 Completed Universit y of Vaccine [place] [place] 00:00:00 [place] [facility], Preserv and ABX Branc h Free 18-64 YRS Influenza Virus 2019-07-04 Completed Universit y of Vaccine 00:00:00 [facility] Influenza Virus 2019-07-04 Completed [facility]it y of Vaccine [place] 00:00:00 [place] [facility], Preserv and ABX Branc h Free 18-64 YRS Influenza Virus 2019-07-04 Completed Universit y of Vaccine 00:00:00 [facility] Influenza Virus 2019-07-04 Completed [facility]it y of Vaccine [place] [place] 00:00:00 [place] [facility], Preserv and ABX Branc h Free 18-64 YRS Influenza Virus 2019-07-04 Completed Universit y of Vaccine 00:00:00 [facility] Influenza Virus 2019-07-04 Completed Universit y of Vaccine [place] [place] 00:00:00 [place] [facility], Preserv and ABX Branc h Free 18-64 YRS Influenza Virus 2019-07-04 Completed Universit y of Vaccine 00:00:00 [facility] Influenza Virus 2019-07-04 Completed [facility]it y of Vaccine [place] 00:00:00 [place] [facility], Preserv and ABX Branc h Free 18-64 YRS Influenza Virus 2019-07-04 Completed Universit y of Vaccine 00:00:00 [facility] Influenza Virus 2019-07-04 Completed [facility]it y of Vaccine [place] 00:00:00 [place] [facility], Preserv and ABX Branc h Free 18-64 YRS Influenza Virus 2019-07-04 Completed Universit y of Vaccine 00:00:00 [facility] Influenza Virus 2019-07-04 Completed Universit y of Vaccine [place] [place] 00:00:00 [place] [facility], Preserv and ABX Branc h Free 18-64 YRS Influenza Virus 2019-07-04 Completed Universit y of Vaccine 00:00:00 [facility] Influenza Virus 2019-07-04 Completed [facility]it y of Vaccine [place] 00:00:00 [place] [facility], Preserv and ABX Branc h Free 18-64 YRS Influenza Virus 2019-07-04 Completed Universit y of Vaccine 00:00:00 [facility] Influenza Virus 2019-07-04 Completed [facility]it y of Vaccine [place] 00:00:00 [place] [facility], Preserv and ABX Branc h Free 18-64 YRS Influenza Virus 2019-07-04 Completed Universit y of Vaccine 00:00:00 [facility] Influenza Virus 2019-07-04 Completed [facility]it y of Vaccine [place] 00:00:00 [place] [facility], Preserv and ABX Branc h Free 18-64 YRS Influenza Virus 2019-07-04 Completed Universit y of Vaccine 00:00:00 [facility] Influenza Virus 2019-07-04 Completed Universit y of Vaccine [place] 00:00:00 [place] [facility], Preserv and ABX Branc h Free 18-64 YRS Influenza Virus 2019-07-04 Completed Universit y of Vaccine 00:00:00 [facility] Influenza Virus 2019-07-04 Completed [facility]it y of Vaccine [place] 00:00:00 [place] [facility], Preserv and ABX Branc h Free 18-64 YRS Influenza Virus 2019-07-04 Completed Universit y of Vaccine 00:00:00 [facility] Influenza Virus 2019-07-04 Completed [facility]it y of Vaccine [place] 00:00:00 [place] [facility], Preserv and ABX Branc h Free 18-64 YRS Influenza Virus 2019-07-04 Completed Universit y of Vaccine 00:00:00 [facility] Influenza Virus 2019-07-04 Completed [facility]it y of Vaccine [place] [place] 00:00:00 [place] [facility], Preserv and ABX Branc h Free 18-64 YRS Influenza Virus 2019-07-04 Completed Universit y of Vaccine 00:00:00 [facility] Influenza Virus 2019-07-04 Completed [facility]it y of Vaccine [place] 00:00:00 [place] [facility], Preserv and ABX Branc h Free 18-64 YRS Influenza Virus 2019-07-04 Completed Universit y of Vaccine 00:00:00 [facility] Influenza Virus 2019-07-04 Completed Universit y of Vaccine [place] [place] 00:00:00 [place] [facility], Preserv and ABX Branc h Free 18-64 YRS Influenza Virus 2019-07-04 Completed Universit y of Vaccine 00:00:00 [facility] Influenza Virus 2019-07-04 Completed Universit y of Vaccine [place] 00:00:00 [place] [facility], Preserv and ABX Branc h Free 18-64 YRS Influenza Virus 2019-07-04 Completed Universit y of Vaccine 00:00:00 [facility] Influenza Virus 2019-07-04 Completed [facility]it y of Vaccine [place] [place] 00:00:00 [place] [facility], Preserv and ABX Branc h Free 18-64 YRS Influenza Virus 2019-07-04 Completed Universit y of Vaccine 00:00:00 [facility] Influenza Virus 2019-07-04 Completed [facility]it y of Vaccine [place] [place] 00:00:00 [place] [facility], Preserv and ABX Branc h Free 18-64 YRS Influenza Virus 2019-07-04 Completed Universit y of Vaccine 00:00:00 [facility] Influenza Virus 2019-07-04 Completed [facility]it y of Vaccine [place] 00:00:00 [place] [facility], Preserv and ABX Branc h Free 18-64 YRS Influenza Virus 2019-07-04 Completed Universit y of Vaccine 00:00:00 [facility] Influenza Virus 2019-07-04 Completed [facility]it y of Vaccine [place] [place] 00:00:00 [place] [facility], Preserv and ABX Branc h Free 18-64 YRS Influenza Virus 2019-07-04 Completed Universit y of Vaccine 00:00:00 [facility] Influenza Virus 2019-07-04 Completed [facility]it y of Vaccine [place] 00:00:00 [place] [facility], Preserv and ABX Branc h Free 18-64 YRS Influenza Virus 2019-07-04 Completed Universit y of Vaccine 00:00:00 [facility] Influenza Virus 2019-07-04 Completed [facility]it y of Vaccine [place] 00:00:00 [place] [facility], Preserv and ABX Branc h Free 18-64 YRS Influenza Virus 2019-07-04 Completed Universit y of Vaccine 00:00:00 [facility] Influenza Virus 2019-07-04 Completed [facility]it y of Vaccine [place] 00:00:00 [place] [facility], Preserv and ABX Branc h Free 18-64 YRS Influenza Virus 2019-07-04 Completed Universit y of Vaccine 00:00:00 [facility] Influenza Virus 2019-07-04 Completed [facility]it y of Vaccine [place] [place] 00:00:00 [place] [facility], Preserv and ABX Branc h Free 18-64 YRS Influenza Virus 2019-07-04 Completed Universit y of Vaccine 00:00:00 [facility] Influenza Virus 2019-07-04 Completed [facility]it y of Vaccine [place] 00:00:00 [place] [facility], Preserv and ABX Branc h Free 18-64 YRS Influenza Virus 2019-07-04 Completed Universit y of Vaccine 00:00:00 [facility] Influenza Virus 2019-07-04 Completed [facility]it y of Vaccine [place] 00:00:00 [place] [facility], Preserv and ABX Branc h Free 18-64 YRS Influenza Virus 2019-07-04 Completed Universit y of Vaccine 00:00:00 [facility] Influenza Virus 2019-07-04 Completed [facility] y of Vaccine [place] 00:00:00 [place] [facility], Preserv and ABX Branc h Free 18-64 YRS Influenza Virus 2019-07-04 Completed Universit y of Vaccine 00:00:00 [facility] Influenza Virus 2019-07-04 Completed [facility] y of Vaccine [place] 00:00:00 [place] [facility], Preserv and ABX Branc h Free 18-64 YRS Influenza Virus 2019-07-04 Completed [facility]it y of Vaccine 00:00:00 [facility] Influenza Virus 2019-07-04 Completed [facility] y of Vaccine [place] 00:00:00 [place] [facility], Preserv and ABX Branc h Free 18-64 YRS Influenza Virus 2019-07-04 Completed [facility]it y of Vaccine 00:00:00 [facility] Influenza Virus 2019-07-04 Completed [facility]it y of Vaccine [place] 00:00:00 [place] [facility], Preserv and ABX Branc h Free 18-64 YRS Influenza Virus 2019-07-04 Completed Universit y of Vaccine 00:00:00 [facility] Influenza Virus 2019-07-04 Completed [facility] y of Vaccine [place] 00:00:00 [place] [facility], Preserv and ABX Branc h Free 18-64 YRS Influenza Virus 2019-07-04 Completed Universit y of Vaccine 00:00:00 [facility] Influenza Virus 2019-07-04 Completed [facility] y of Vaccine [place] [place] 00:00:00 [place] [facility], Preserv and ABX Branc h Free 18-64 YRS Influenza Virus 2019-07-04 Completed [facility]it y of Vaccine 00:00:00 [facility] Influenza Virus 2019-07-04 Completed [facility]it y of Vaccine [place] 00:00:00 [place] [facility], Preserv and ABX Branc h Free 18-64 YRS Influenza Virus 2019-07-04 Completed [facility] y of Vaccine 00:00:00 [facility] Influenza Virus 2019-07-04 Completed [facility] y of Vaccine [place] 00:00:00 [place] [facility], Preserv and ABX Branc h Free 18-64 YRS Influenza Virus 2019-07-04 Completed [facility] y of Vaccine 00:00:00 [facility] Influenza Virus 2019-07-04 Completed [facility] y of Vaccine [place] 00:00:00 [place] [facility], Preserv and ABX Branc h Free 18-64 YRS Influenza Virus 2019-07-04 Completed [facility] y of Vaccine 00:00:00 [facility] Influenza Virus 2019-07-04 Completed [facility] y of Vaccine [place] 00:00:00 [facility], Preserv and ABX Branc h Free 18-64 YRS Influenza Virus 2019-07-04 Completed [facility] y of Vaccine 00:00:00 [facility] Influenza Virus 2019-07-04 Completed [facility] y of Vaccine [place] 00:00:00 [facility], Preserv and ABX Branc h Free 18-64 YRS Influenza Virus 2019-07-04 Completed Universit y of Vaccine 00:00:00 [facility] Influenza Virus 2019-07-04 [facility]pleted [facility]:00:00 [facility], Preserv and ABX Branc h Free 18-64 YRS Influenza Virus 2019-07-04 Completed [facility] 00:00:00 [facility] Influenza Virus 2019-07-04 Completed [facility] 00:00:00 [facility], Preserv and ABX Branc h Free 18-64 YRS Influenza Virus 2019-07-04 Completed [facility] 00:00:00 [facility] Influenza Virus 2019-07-04 Completed [facility] 00:00:00 [facility], Preserv and ABX Branc h Free 18-64 YRS Influenza Virus 2019-07-04 Completed [facility] 00:00:00 [facility] Influenza Virus 2019-07-04 Completed [facility] 00:00:00 [facility], Preserv and ABX Branc h Free 18-64 YRS Influenza Virus 2019-07-04 Completed [facility] 00:00:00 [facility] Influenza Virus 2019-07-04 Completed [facility] 00:00:00 [facility], Preserv and ABX Branc h Free 18-64 YRS Influenza Virus 2019-07-04 Completed [facility]ine 00:00:00 [facility] Influenza Virus 2019-07-04 Completed [facility] 00:00:00 [facility], Preserv and ABX Branc h Free 18-64 YRS Influenza Virus 2019-07-04 Completed [facility]ine 00:00:00 [facility] Influenza Virus 2019-07-04 Completed [facility] 00:00:00 [facility], Preserv and ABX Branc h Free 18-64 YRS Influenza Virus 2019-07-04 Completed [facility]ine 00:00:00 [facility] Influenza Virus 2019-07-04 Completed [facility] 00:00:00 [facility], Preserv and ABX Branc h Free 18-64 YRS Influenza Virus 2019-07-04 Completed [facility]ine 00:00:00 [facility] Influenza Virus 2019-07-04 Completed [facility] 00:00:00 [facility], Preserv and ABX Branc h Free 18-64 YRS Influenza Virus 2019-07-04 Completed [facility]ine 00:00:00 [facility] Influenza Virus 2019-07-04 Completed [facility] 00:00:00 [facility], Preserv and ABX Branc h Free 18-64 YRS Influenza Virus 2019-07-04 Completed [facility]ine 00:00:00 [facility] Influenza Virus 2019-07-04 Completed [facility] 00:00:00 [facility], Preserv and ABX Branc h Free 18-64 YRS Influenza Virus 2019-07-04 Completed [facility]ine 00:00:00 [facility] Influenza Virus 2019-07-04 Completed [facility] 00:00:00 [facility], Preserv and ABX Branc h Free 18-64 YRS Influenza Virus 2019-07-04 Completed [facility]ine 00:00:00 [facility] Influenza Virus 2019-07-04 Completed [facility] 00:00:00 [facility], Preserv and ABX Branc h Free 18-64 YRS Influenza Virus 2019-07-04 Completed [facility]ine 00:00:00 [facility] Influenza Virus 2019-07-04 Completed [facility] 00:00:00 [facility], Preserv and ABX Branc h Free 18-64 YRS Influenza Virus 2019-07-04 Completed [facility] Vaccine 00:00:00 [facility] Influenza Virus 2019-07-04 Completed [facility] 00:00:00 [facility], Preserv and ABX Branc h Free 18-64 YRS Influenza Virus 2019-07-04 Completed [facility]ine 00:00:00 [facility] Influenza Virus 2019-07-04 Completed [facility] 00:00:00 [facility], Preserv and ABX Branc h Free 18-64 YRS Influenza Virus 2019-07-04 Completed [facility]ine 00:00:00 [facility] Influenza Virus 2019-07-04 Completed [facility] 00:00:00 [facility], Preserv and ABX Branc h Free 18-64 YRS Influenza Virus 2019-07-04 Completed [facility]ine 00:00:00 [facility] Influenza Virus 2019-07-04 Completed [facility] 00:00:00 [facility], Preserv and ABX Branc h Free 18-64 YRS Influenza Virus 2019-07-04 Completed [facility]ine 00:00:00 [facility] Influenza Virus 2019-07-04 Completed [facility] 00:00:00 [facility], Preserv and ABX Branc h Free 18-64 YRS Influenza Virus 2019-07-04 Completed [facility]ine 00:00:00 [facility] Influenza Virus 2019-07-04 Completed [facility] 00:00:00 [facility], Preserv and ABX Branc h Free 18-64 YRS Influenza Virus 2019-07-04 Completed [facility]ine 00:00:00 [facility] Influenza Virus 2019-07-04 Completed [facility] 00:00:00 [facility], Preserv and ABX Branc h Free 18-64 YRS Influenza Virus 2019-07-04 Completed [facility]ine 00:00:00 [facility] Influenza Virus 2019-07-04 Completed [facility] 00:00:00 [facility], Preserv and ABX Branc h Free 18-64 YRS Influenza Virus 2019-07-04 Completed [facility] Vaccine 00:00:00 [facility] Influenza Virus 2019-07-04 Completed [facility] 00:00:00 [facility], Preserv and ABX Branc h Free 18-64 YRS Influenza Virus 2019-07-04 Completed [facility] Vaccine 00:00:00 [facility] Influenza Virus 2019-07-04 Completed [facility] 00:00:00 [facility], Preserv and ABX Branc h Free 18-64 YRS Influenza Virus 2019-07-04 Completed [facility] Vaccine 00:00:00 [facility] Influenza Virus 2019-07-04 Completed [facility] 00:00:00 [facility], Preserv and ABX Branc h Free 18-64 YRS Influenza Virus 2019-07-04 Completed [facility] Vaccine 00:00:00 [facility] Influenza Virus 2019-07-04 Completed [facility] 00:00:00 [facility], Preserv and ABX Branc h Free 18-64 YRS Influenza Virus 2019-07-04 Completed [facility]ine 00:00:00 [facility] Influenza Virus 2019-07-04 Completed [facility] 00:00:00 [facility], Preserv and ABX Branc h Free 18-64 YRS Influenza Virus 2019-07-04 Completed [facility]ine 00:00:00 [facility] Influenza Virus 2019-07-04 Completed [facility] 00:00:00 [facility], Preserv and ABX Branc h Free 18-64 YRS Influenza Virus 2019-07-04 Completed [facility] Vaccine 00:00:00 [facility] Influenza Virus 2019-07-04 Completed [facility] 00:00:00 [facility], Preserv and ABX Branc h Free 18-64 YRS Influenza Virus 2019-07-04 Completed [facility] Vaccine 00:00:00 [facility] Influenza Virus 2019-07-04 Completed [facility] 00:00:00 [facility], Preserv and ABX Branc h Free 18-64 YRS Influenza Virus 2019-07-04 Completed [facility] Vaccine 00:00:00 [facility] Influenza Virus 2019-07-04 Completed [facility] 00:00:00 [facility], Preserv and ABX Branc h Free 18-64 YRS Influenza Virus 2019-07-04 Completed [facility] Vaccine 00:00:00 [facility] Influenza Virus 2019-07-04 Completed [facility] 00:00:00 [facility], Preserv and ABX Branc h Free 18-64 YRS Influenza Virus 2019-07-04 Completed [facility] Vaccine 00:00:00 [facility] Influenza Virus 2019-07-04 Completed [facility] 00:00:00 [facility], Preserv and ABX Branc h Free 18-64 YRS Influenza Virus 2019-07-04 Completed [facility]ine 00:00:00 [facility] Influenza Virus 2019-07-04 Completed [facility] 00:00:00 [facility], Preserv and ABX Branc h Free 18-64 YRS Influenza Virus 2019-07-04 Completed [facility]ine 00:00:00 [facility] Influenza Virus 2019-07-04 Completed [facility] 00:00:00 [facility], Preserv and ABX Branc h Free 18-64 YRS Influenza Virus 2019-07-04 Completed [facility]ine 00:00:00 [facility] Influenza Virus 2019-07-04 Completed [facility] 00:00:00 [facility], Preserv and ABX Branc h Free 18-64 YRS Influenza Virus 2019-07-04 Completed [facility]ine 00:00:00 [facility] Influenza Virus 2019-07-04 Completed [facility] 00:00:00 [facility], Preserv and ABX Branc h Free 18-64 YRS Influenza Virus 2019-07-04 Completed [facility]ine 00:00:00 [facility] Influenza Virus 2019-07-04 Completed [facility] 00:00:00 [facility], Preserv and ABX Branc h Free 18-64 YRS Influenza Virus 2019-07-04 Completed [facility] Vaccine 00:00:00 [facility] Influenza Virus 2019-07-04 Completed [facility] 00:00:00 [facility], Preserv and ABX Branc h Free 18-64 YRS Influenza Virus 2019-07-04 Completed [facility]ine 00:00:00 [facility] Influenza Virus 2019-07-04 Completed [facility] 00:00:00 [facility], Preserv and ABX Branc h Free 18-64 YRS Influenza Virus 2019-07-04 Completed [facility] Vaccine 00:00:00 [facility] Influenza Virus 2019-07-04 Completed [facility] 00:00:00 [facility], Preserv and ABX Branc h Free 18-64 YRS Influenza Virus 2019-07-04 Completed [facility] Vaccine 00:00:00 [facility] Influenza Virus 2019-07-04 Completed [facility] 00:00:00 [facility], Preserv and ABX Branc h Free 18-64 YRS Influenza Virus 2019-07-04 Completed [facility] Vaccine 00:00:00 [facility] Influenza Virus 2019-07-04 Completed [facility] 00:00:00 [facility], Preserv and ABX Branc h Free 18-64 YRS Influenza Virus 2019-07-04 Completed [facility] Vaccine 00:00:00 [facility] Influenza Virus 2019-07-04 Completed [facility] 00:00:00 [facility], Preserv and ABX Branc h Free 18-64 YRS Influenza Virus 2019-07-04 Completed [facility] Vaccine 00:00:00 [facility] Influenza Virus 2019-07-04 Completed [facility] 00:00:00 [facility], Preserv and ABX Branc h Free 18-64 YRS Influenza Virus 2019-07-04 Completed [facility] Vaccine 00:00:00 [facility] Influenza Virus 2019-07-04 Completed [facility] 00:00:00 [facility], Preserv and ABX Branc h Free 18-64 YRS Influenza Virus 2019-07-04 Completed [facility] Vaccine 00:00:00 [facility] Influenza Virus 2019-07-04 Completed [facility] 00:00:00 [facility], Preserv and ABX Branc h Free 18-64 YRS Influenza Virus 2019-07-04 Completed [facility] Vaccine 00:00:00 [facility] Influenza Virus 2019-07-04 Completed [facility] 00:00:00 [facility], Preserv and ABX Branc h Free 18-64 YRS Influenza Virus 2019-07-04 Completed [facility] Vaccine 00:00:00 [facility] Influenza Virus 2019-07-04 Completed [facility] 00:00:00 [facility], Preserv and ABX Branc h Free 18-64 YRS Influenza Virus 2019-07-04 Completed [facility]ine 00:00:00 [facility] Influenza Virus 2019-07-04 Completed [facility] 00:00:00 [facility], Preserv and ABX Branc h Free 18-64 YRS Influenza Virus 2019-07-04 Completed [facility]ine 00:00:00 [facility] Influenza Virus 2019-07-04 Completed [facility] 00:00:00 [facility], Preserv and ABX Branc h Free 18-64 YRS Influenza Virus 2019-07-04 Completed [facility] Vaccine 00:00:00 [facility] Influenza Virus 2019-07-04 Completed [facility] 00:00:00 [facility], Preserv and ABX Branc h Free 18-64 YRS Influenza Virus 2019-07-04 Completed [facility]ine 00:00:00 [facility] Influenza Virus 2019-07-04 Completed [facility] 00:00:00 [facility], Preserv and ABX Branc h Free 18-64 YRS Influenza Virus 2019-07-04 Completed [facility] Vaccine 00:00:00 [facility] Influenza Virus 2019-07-04 Completed [facility] 00:00:00 [facility], Preserv and ABX Branc h Free 18-64 YRS Influenza Virus 2019-07-04 Completed [facility] Vaccine 00:00:00 [facility] Influenza Virus 2019-07-04 Completed [facility]ine [facility] 00:00:00 [facility], Preserv and ABX Branc h Free 18-64 YRS Influenza Virus 2019-07-04 Completed [facility]ine 00:00:00 [facility] Influenza Virus 2019-07-04 Completed [facility] 00:00:00 [facility], Preserv and ABX Branc h Free 18-64 YRS Influenza Virus 2019-07-04 Completed [facility] Vaccine 00:00:00 [facility] Influenza Virus 2019-07-04 Completed [facility] 00:00:00 [facility], Preserv and ABX Branc h Free 18-64 YRS Influenza Virus 2019-07-04 Completed [facility]ine 00:00:00 [facility] Influenza Virus 2019-07-04 Completed [facility] 00:00:00 [facility], Preserv and ABX Branc h Free 18-64 YRS Influenza Virus 2019-07-04 Completed [facility]ine 00:00:00 [facility] Influenza Virus 2019-07-04 Completed [facility] 00:00:00 [facility], Preserv and ABX Branc h Free 18-64 YRS Influenza Virus 2019-07-04 Completed [facility] Vaccine 00:00:00 [facility] Influenza Virus 2019-07-04 Completed [facility]ine [facility] 00:00:00 [facility], Preserv and ABX Branc h Free 18-64 YRS Influenza Virus 2019-07-04 Completed [facility]ine 00:00:00 [facility] Influenza Virus 2019-07-04 Completed [facility]ine [facility] 00:00:00 [facility], Preserv and ABX Branc h Free 18-64 YRS Influenza Virus 2019-07-04 Completed [facility] Vaccine 00:00:00 [facility] Influenza Virus 2019-07-04 Completed [facility]ine [facility] 00:00:00 [facility], Preserv and ABX Branc h Free 18-64 YRS Influenza Virus 2019-07-04 Completed [facility] Vaccine 00:00:00 [facility] Influenza Virus 2019-07-04 Completed [facility]ine [facility] 00:00:00 [facility], Preserv and ABX Branc h Free 18-64 YRS Influenza Virus 2019-07-04 Completed [facility] Vaccine 00:00:00 [facility] Influenza Virus 2019-07-04 Completed [facility]ine [facility] 00:00:00 [facility], Preserv and ABX Branc h Free 18-64 YRS Influenza Virus 2019-07-04 Completed [facility] Vaccine 00:00:00 [facility] Influenza Virus 2019-07-04 Completed [facility]ine [facility] 00:00:00 [facility], Preserv and ABX Branc h Free 18-64 YRS Influenza Virus 2019-07-04 Completed [facility] Vaccine 00:00:00 [facility] Influenza Virus 2019-07-04 Completed [facility]ine [facility] 00:00:00 [facility], Preserv and ABX Branc h Free 18-64 YRS Influenza Virus 2019-07-04 Completed [facility] Vaccine 00:00:00 [facility] Influenza Virus 2019-07-04 Completed [facility]ine [facility] 00:00:00 [facility], Preserv and ABX Branc h Free 18-64 YRS Influenza Virus 2019-07-04 Completed [facility] Vaccine 00:00:00 [facility] Influenza Virus 2019-07-04 Completed [facility]ine [facility] 00:00:00 [facility], Preserv and ABX Branc h Free 18-64 YRS Influenza Virus 2019-07-04 Completed [facility] Vaccine 00:00:00 [facility] Influenza Virus 2019-07-04 Completed [facility]ine [facility] 00:00:00 [facility], Preserv and ABX Branc h Free 1866 YRS Influenza Virus 2019-07-04 Completed [facility] Vaccine 00:00:00 [facility] Influenza Virus 2019-07-04 Completed [facility]ine [facility] 00:00:00 [facility], Preserv and ABX Branc h Free 1866 YRS Influenza Virus 2018-06-30 Completed [facility] Quad IM 3+ 00:00:00 [facility] Influenza Virus 2018-06-30 Completed [facility] Vaccine Quad IM 3+ 00:00:00 [facility] Influenza Virus 2018-06-30 Completed [facility] Vaccine Quad IM 3+ 00:00:00 [facility] Influenza Virus 2018-06-30 Completed [facility]ine Quad IM 3+ 00:00:00 [facility] Influenza Virus 2018-06-30 Completed [facility] Vaccine Quad IM 3+ 00:00:00 [facility] Influenza Virus 2018-06-30 Completed [facility] Vaccine [facility] IM 3+ 00:00:00 [facility] Influenza Virus 2018-06-30 Completed [facility] Vaccine Quad IM 3+ 00:00:00 [facility] Influenza Virus 2018-06-30 Completed [facility] Vaccine Quad IM 3+ 00:00:00 [facility] Influenza Virus 2018-06-30 Completed [facility] Vaccine Quad IM 3+ 00:00:00 [facility] Influenza Virus 2018-06-30 Completed [facility]ine [facility] IM 3+ 00:00:00 [facility] Influenza Virus 2018-06-30 Completed [facility] Vaccine Quad IM 3+ 00:00:00 [facility] Influenza Virus 2018-06-30 Completed [facility] Vaccine Quad IM 3+ 00:00:00 [facility] Influenza Virus 2018-06-30 Completed [facility] Vaccine Quad IM 3+ 00:00:00 [facility] Influenza Virus 2018-06-30 Completed [facility] Vaccine Quad IM 3+ 00:00:00 [facility] Influenza Virus 2018-06-30 Completed [facility] Vaccine Quad IM 3+ 00:00:00 [facility] Influenza Virus 2018-06-30 Completed [facility] Vaccine Quad IM 3+ 00:00:00 [facility] Influenza Virus 2018-06-30 Completed [facility] Vaccine Quad IM 3+ 00:00:00 [facility] Influenza Virus 2018-06-30 Completed [facility] Vaccine Quad IM 3+ 00:00:00 [facility] Influenza Virus 2018-06-30 Completed [facility] Vaccine Quad IM 3+ 00:00:00 [facility] Influenza Virus 2018-06-30 Completed [facility] Vaccine Quad IM 3+ 00:00:00 [facility] Influenza Virus 2018-06-30 Completed [facility] Vaccine Quad IM 3+ 00:00:00 [facility] Influenza Virus 2018-06-30 Completed [facility] Vaccine Quad IM 3+ 00:00:00 [facility] Influenza Virus 2018-06-30 Completed [facility] Vaccine [facility] IM 3+ 00:00:00 [facility] Influenza Virus 2018-06-30 Completed [facility] Vaccine [facility] IM 3+ 00:00:00 [facility] Influenza Virus 2018-06-30 Completed [facility] Vaccine [facility] IM 3+ 00:00:00 [facility] Influenza Virus 2018-06-30 Completed [facility] Vaccine Quad IM 3+ 00:00:00 [facility] Influenza Virus 2018-06-30 Completed [facility] Vaccine [facility] IM 3+ 00:00:00 [facility] Influenza Virus 2018-06-30 Completed [facility]ine [facility] IM 3+ 00:00:00 [facility] Influenza Virus 2018-06-30 Completed [facility]ine [facility] IM 3+ 00:00:00 [facility] Influenza Virus 2018-06-30 Completed [facility] Vaccine [facility] IM 3+ 00:00:00 [facility] Influenza Virus 2018-06-30 Completed [facility]ine [facility] IM 3+ 00:00:00 [facility] Influenza Virus 2018-06-30 Completed [facility] Vaccine [facility] IM 3+ 00:00:00 [facility] Influenza Virus 2018-06-30 Completed [facility]ine [facility] IM 3+ 00:00:00 [facility] Influenza Virus 2018-06-30 Completed [facility] Vaccine [facility] IM 3+ 00:00:00 [facility] Influenza Virus 2018-06-30 Completed [facility]ine [facility] IM 3+ 00:00:00 [facility] Influenza Virus 2018-06-30 Completed [facility] Vaccine [facility] IM 3+ 00:00:00 [facility] Influenza Virus 2018-06-30 Completed [facility] Vaccine [facility] IM 3+ 00:00:00 [facility] Influenza Virus 2018-06-30 Completed [facility]ine [facility] IM 3+ 00:00:00 [facility] Influenza Virus 2018-06-30 Completed [facility]ine Quad IM 3+ 00:00:00 [facility] Influenza Virus 2018-06-30 Completed [facility]ine Quad IM 3+ 00:00:00 [facility] Influenza Virus 2018-06-30 Completed [facility]ine Quad IM 3+ 00:00:00 [facility] Influenza Virus 2018-06-30 Completed [facility]ine Quad IM 3+ 00:00:00 [facility] Influenza Virus 2018-06-30 Completed [facility] Vaccine Quad IM 3+ 00:00:00 [facility] Influenza Virus 2018-06-30 Completed [facility] Vaccine Quad IM 3+ 00:00:00 [facility] Influenza Virus 2018-06-30 Completed [facility] Vaccine Quad IM 3+ 00:00:00 [facility] Influenza Virus 2018-06-30 Completed [facility] Vaccine [facility] IM 3+ 00:00:00 [facility] Influenza Virus 2018-06-30 Completed [facility] Vaccine Quad IM 3+ 00:00:00 [facility] Influenza Virus 2018-06-30 Completed [facility] Vaccine [facility] IM 3+ 00:00:00 [facility] Influenza Virus 2018-06-30 Completed [facility] Vaccine Quad IM 3+ 00:00:00 [facility] Influenza Virus 2018-06-30 Completed [facility] Vaccine [facility] IM 3+ 00:00:00 [facility] Influenza Virus 2018-06-30 Completed [facility] Vaccine [facility] IM 3+ 00:00:00 [facility] Influenza Virus 2018-06-30 Completed [facility] Vaccine [facility] IM 3+ 00:00:00 [facility] Influenza Virus 2018-06-30 Completed [facility] Vaccine [facility] IM 3+ 00:00:00 [facility] Influenza Virus 2018-06-30 Completed [facility] Vaccine [facility] IM 3+ 00:00:00 [facility] Influenza Virus 2018-06-30 Completed [facility] Vaccine [facility] IM 3+ 00:00:00 [facility] Influenza Virus 2018-06-30 Completed [facility] Vaccine [facility] IM 3+ 00:00:00 [facility] Influenza Virus 2018-06-30 Completed [facility] Vaccine Quad IM 3+ 00:00:00 [facility] Influenza Virus 2018-06-30 Completed [facility] Vaccine Quad IM 3+ 00:00:00 [facility] Influenza Virus 2018-06-30 Completed [facility] Vaccine Quad IM 3+ 00:00:00 [facility] Influenza Virus 2018-06-30 Completed [facility] Vaccine Quad IM 3+ 00:00:00 [facility] Influenza Virus 2018-06-30 Completed [facility]ine Quad IM 3+ 00:00:00 [facility] Influenza Virus 2018-06-30 Completed [facility] IM 3+ 00:00:00 [facility] Influenza Virus 2018-06-30 Completed [facility] IM 3+ 00:00:00 [facility] Influenza Virus 2018-06-30 Completed [facility] Vacc[facility] IM 3+ 00:00:00 [facility] Influenza Virus 2018-06-30 Completed [facility] Vaccine [facility] IM 3+ 00:00:00 [facility] Influenza Virus 2018-06-30 Completed [facility] Vaccine [facility] IM 3+ 00:00:00 [facility] Influenza Virus 2018-06-30 Completed [facility] Vaccine [facility] IM 3+ 00:00:00 [facility] Influenza Virus 2018-06-30 Completed [facility] Vaccine [facility] IM 3+ 00:00:00 [facility] Influenza Virus 2018-06-30 Completed [facility] Vacc[facility] IM 3+ 00:00:00 [facility] Influenza Virus 2018-06-30 Completed [facility] Vaccine [facility] IM 3+ 00:00:00 [facility] Influenza Virus 2018-06-30 Completed [facility] Vaccine [facility] IM 3+ 00:00:00 [facility] Influenza Virus 2018-06-30 Completed [facility] Vaccine Quad IM 3+ 00:00:00 [facility] Influenza Virus 2018-06-30 Completed [facility] Vaccine [facility] IM 3+ 00:00:00 [facility] Influenza Virus 2018-06-30 Completed [facility] Vaccine Quad IM 3+ 00:00:00 [facility] Influenza Virus 2018-06-30 Completed [facility] Vaccine Quad IM 3+ 00:00:00 [facility] Influenza Virus 2018-06-30 Completed [facility] Vaccine Quad IM 3+ 00:00:00 [facility] Influenza Virus 2018-06-30 Completed [facility] Vaccine Quad IM 3+ 00:00:00 [facility] Influenza Virus 2018-06-30 Completed [facility] Vaccine Quad IM 3+ 00:00:00 [facility] Influenza Virus 2018-06-30 Completed [facility] Vaccine Quad IM 3+ 00:00:00 [facility] Influenza Virus 2018-06-30 Completed [facility] Vaccine Quad IM 3+ 00:00:00 [facility] Influenza Virus 2018-06-30 Completed [facility] Vaccine Quad IM 3+ 00:00:00 [facility] Influenza Virus 2018-06-30 Completed [facility] Vaccine Quad IM 3+ 00:00:00 [facility] Influenza Virus 2018-06-30 Completed [facility] Vaccine Quad IM 3+ 00:00:00 [facility] Influenza Virus 2018-06-30 Completed [facility] Vaccine Quad IM 3+ 00:00:00 [facility] Influenza Virus 2018-06-30 Completed [facility] Vaccine Quad IM 3+ 00:00:00 [facility] Influenza Virus 2018-06-30 Completed [facility] Vaccine [facility] IM 3+ 00:00:00 [facility] Influenza Virus 2018-06-30 Completed [facility] Vaccine Quad IM 3+ 00:00:00 [facility] Influenza Virus 2018-06-30 Completed [facility] Vaccine [facility] IM 3+ 00:00:00 [facility] Influenza Virus 2018-06-30 Completed [facility] Vaccine [facility] IM 3+ 00:00:00 [facility] Influenza Virus 2018-06-30 Completed [facility] Vaccine [facility] IM 3+ 00:00:00 [facility] Influenza Virus 2018-06-30 Completed [facility] Vaccine Quad IM 3+ 00:00:00 [facility] Influenza Virus 2018-06-30 Completed [facility] Vaccine Quad IM 3+ 00:00:00 [facility] Influenza Virus 2018-06-30 Completed [facility] Vaccine [facility] IM 3+ 00:00:00 [facility] Influenza Virus 2018-06-30 Completed [facility] Vaccine Quad IM 3+ 00:00:00 [facility] Influenza Virus 2018-06-30 Completed [facility] Vaccine [facility] IM 3+ 00:00:00 [facility] Influenza Virus 2018-06-30 Completed [facility] Vaccine [facility] IM 3+ 00:00:00 [facility] Influenza Virus 2018-06-30 Completed [facility] Vaccine [facility] IM 3+ 00:00:00 [facility] Influenza Virus 2018-06-30 Completed [facility] Vaccine [facility] IM 3+ 00:00:00 [facility] Influenza Virus 2018-06-30 Completed [facility] Vaccine [facility] IM 3+ 00:00:00 [facility] Influenza Virus 2018-06-30 Completed [facility] Vaccine [facility] IM 3+ 00:00:00 [facility] Influenza Virus 2018-06-30 Completed [facility] Vacc[facility] IM 3+ 00:00:00 [facility] Influenza Virus 2018-06-30 Completed [facility] Vaccine [facility] IM 3+ 00:00:00 [facility] Influenza Virus 2018-06-30 Completed [facility] Vaccine Quad IM 3+ 00:00:00 [facility] Influenza Virus 2018-06-30 Completed [facility] Vaccine [facility] IM 3+ 00:00:00 [facility] Influenza Virus 2018-06-30 Completed [facility] Vaccine [facility] IM 3+ 00:00:00 [facility] Influenza Virus 2018-06-30 Completed [facility] Vaccine [facility] IM 3+ 00:00:00 [facility] Influenza Virus 2018-06-30 Completed [facility] Vaccine [facility] IM 3+ 00:00:00 [facility] Influenza Virus 2018-06-30 Completed [facility] Vaccine [facility] IM 3+ 00:00:00 [facility] Influenza Virus 2018-06-30 Completed [facility] Vaccine [facility] IM 3+ 00:00:00 [facility] Influenza Virus 2018-06-30 Completed [facility] Vaccine [facility] IM 3+ 00:00:00 [facility] Influenza Virus 2018-06-30 Completed [facility] Vaccine [facility] IM 3+ 00:00:00 [facility] Influenza Virus 2018-06-30 Completed [facility] Vaccine Quad IM 3+ 00:00:00 [facility] Influenza Virus 2018-06-30 Completed [facility] Vaccine [facility] IM 3+ 00:00:00 [facility] Influenza Virus 2018-06-30 Completed [facility] Vaccine [facility] IM 3+ 00:00:00 [facility] Influenza Virus 2018-06-30 Completed [facility] Vaccine [facility] IM 3+ 00:00:00 [facility] Influenza Virus 2018-06-30 Completed [facility] Vaccine [facility] IM 3+ 00:00:00 [facility] Influenza Virus 2018-06-30 Completed [facility] Vaccine [facility] IM 3+ 00:00:00 [facility] Influenza Virus 2018-06-30 Completed [facility] Vaccine [facility] IM 3+ 00:00:00 [facility] Influenza Virus 2018-06-30 Completed [facility] Vaccine [facility] IM 3+ 00:00:00 [facility] Influenza Virus 2018-06-30 Completed [facility] Vaccine [facility] IM 3+ 00:00:00 [facility] Influenza Virus 2018-06-30 Completed [facility] Vaccine Quad IM 3+ 00:00:00 [facility] Influenza Virus 2018-06-30 Completed [facility] Vaccine [facility] IM 3+ 00:00:00 [facility] Influenza Virus 2018-06-30 Completed [facility] Vaccine Quad IM 3+ 00:00:00 [facility] Influenza Virus 2018-06-30 Completed [facility] Vaccine [facility] IM 3+ 00:00:00 [facility] Influenza Virus 2018-06-30 Completed [facility] Vaccine Quad IM 3+ 00:00:00 [facility] Influenza Virus 2018-06-30 Completed [facility] Vaccine [facility] IM 3+ 00:00:00 [facility] Influenza Virus 2018-06-30 Completed [facility] Vaccine [facility] IM 3+ 00:00:00 [facility] Influenza Virus 2018-06-30 Completed [facility] Vaccine [facility] IM 3+ 00:00:00 [facility] Influenza Virus 2018-06-30 Completed [facility] Vaccine [facility] IM 3+ 00:00:00 [facility] Influenza Virus 2018-06-30 Completed [facility] Vaccine [facility] IM 3+ 00:00:00 [facility] Influenza Virus 2018-06-30 Completed [facility] Vaccine [facility] IM 3+ 00:00:00 [facility] Influenza Virus 2018-06-30 Completed [facility] Vaccine [facility] IM 3+ 00:00:00 [facility] Influenza Virus 2018-06-30 Completed [facility] Vacc[facility] IM 3+ 00:00:00 [facility] Influenza Virus 2017-06-15 Completed [facility] 00:00:00 [place] [facility] [address] [facility] Influenza Virus 2017-06-15 Completed [facility] Vaccine [facility] ID 00:00:00 [place] [facility] [address] [facility] Influenza Virus 2017-06-15 Completed [facility] ID 00:00:00 [place] [facility] [address] [facility] Influenza Virus 2017-06-15 Completed [facility] Vaccine [facility] ID 00:00:00 [place] [facility] [address] [facility] Influenza Virus 2017-06-15 Completed [facility] Vaccine [facility] ID 00:00:00 [place] [facility] [address] [facility] Influenza Virus 2017-06-15 Completed [facility] Vaccine [facility] ID 00:00:00 [place] [facility] [address] [facility] Influenza Virus 2017-06-15 Completed [facility] ID 00:00:00 [place] [facility] [address] [facility] Influenza Virus 2017-06-15 Completed [facility] Vaccine [facility] ID 00:00:00 [place] [facility] 1866 [facility] Branch Influenza Virus 2017-06-15 Completed [facility] Vaccine [facility] ID 00:00:00 [place] [facility] [address] [facility] Branch Influenza Virus 2017-06-15 Completed [facility] Vaccine [facility] ID 00:00:00 [place] [facility] [address] [facility] Branch Influenza Virus 2017-06-15 Completed [facility] Vaccine [facility] ID 00:00:00 [place] [facility] [address] [facility] Branch Influenza Virus 2017-06-15 Completed [facility] Vacc[facility] ID 00:00:00 [place] [facility] [address] [facility] Influenza Virus 2017-06-15 Completed [facility] Vaccine [facility] ID 00:00:00 [place] [facility] 18-64 Y[facility] Branch Influenza Virus 2017-06-15 Completed [facility] Vaccine [facility] ID 00:00:00 [place] [facility] 18-64 YRS [facility] Influenza Virus 2017-06-15 Completed [facility] Vaccine Quad ID 00:00:00 [facility] ical 18-64 YRS Branch Influenza Virus 2017-06-15 Completed [facility] Vaccine Quad ID 00:00:00 [place] [facility] 18-64 YRS [facility] Influenza Virus 2017-06-15 Completed [facility] Vaccine Quad ID 00:00:00 [facility] ical 18-64 YRS Branch Influenza Virus 2017-06-15 Completed [facility] Vaccine [facility] ID 00:00:00 [place] [facility] 18-64 YRS Branch Influenza Virus 2017-06-15 Completed [facility] Vaccine Quad ID 00:00:00 [facility] ical 18-64 YRS Branch Influenza Virus 2017-06-15 Completed [facility] Vaccine Quad ID 00:00:00 [facility] ical 18-64 YRS Branch Influenza Virus 2017-06-15 Completed [facility] Vaccine Quad ID 00:00:00 [facility] ical 18-64 YRS Branch Influenza Virus 2017-06-15 Completed [facility] Vaccine Quad ID 00:00:00 [facility] ical 18-64 YRS Branch Influenza Virus 2017-06-15 Completed [facility] Vaccine Quad ID 00:00:00 [facility] ical 18-64 YRS Branch Influenza Virus 2017-06-15 Completed [facility] Vaccine Quad ID 00:00:00 [facility] ical 18-64 YRS Branch Influenza Virus 2017-06-15 Completed [facility] Vaccine Quad ID 00:00:00 [place] [facility] ical 18-64 YRS Branch Influenza Virus 2017-06-15 Completed [facility] Vaccine Quad ID 00:00:00 [facility] ical 18-64 YRS Branch Influenza Virus 2017-06-15 Completed [facility] Vaccine Quad ID 00:00:00 [place] [facility] 18-64 YRS [facility] Influenza Virus 2017-06-15 Completed [facility] Vaccine Quad ID 00:00:00 [facility] ical 18-64 YRS Branch Influenza Virus 2017-06-15 Completed [facility] Vaccine [facility] ID 00:00:00 [place] [facility] 18-64 YRS [facility] Influenza Virus 2017-06-15 Completed [facility] Vaccine Quad ID 00:00:00 [facility] ical 18-64 YRS Branch Influenza Virus 2017-06-15 Completed [facility] Vaccine Quad ID 00:00:00 [place] [facility] ical 18-64 YRS Branch Influenza Virus 2017-06-15 Completed [facility] Vaccine Quad ID 00:00:00 [facility] ical 18-64 YRS Branch Influenza Virus 2017-06-15 Completed [facility] Vaccine Quad ID 00:00:00 [facility] ical 18-64 YRS Branch Influenza Virus 2017-06-15 Completed [facility] Vaccine Quad ID 00:00:00 [facility] ical 18-64 YRS Branch Influenza Virus 2017-06-15 Completed [facility] Vaccine Quad ID 00:00:00 [facility] ical 18-64 YRS Branch Influenza Virus 2017-06-15 Completed [facility] Vaccine Quad ID 00:00:00 [facility] ical 18-64 YRS Branch Influenza Virus 2017-06-15 Completed [facility] Vaccine Quad ID 00:00:00 [facility] ica 18-64 YRS Branch Influenza Virus 2017-06-15 Completed [facility] Vaccine Quad ID 00:00:00 [facility] ica 18-64 YRS Branch Influenza Virus 2017-06-15 Completed [facility] Vaccine Quad ID 00:00:00 [facility] ica 18-64 YRS Branch Influenza Virus 2017-06-15 Completed [facility] Vaccine Quad ID 00:00:00 [facility] ical 18-64 YRS Branch Influenza Virus 2017-06-15 Completed [facility] Vaccine Quad ID 00:00:00 [facility] ica 18-64 YRS Branch Influenza Virus 2017-06-15 Completed [facility] Vaccine Quad ID 00:00:00 [facility] ical 18-64 YRS Branch Influenza Virus 2017-06-15 Completed [facility] Vaccine Quad ID 00:00:00 [facility] ical 18-64 YRS Branch Influenza Virus 2017-06-15 Completed [facility] Vaccine Quad ID 00:00:00 [place] [facility] ical 18-64 YRS Branch Influenza Virus 2017-06-15 Completed [facility] Vaccine Quad ID 00:00:00 [facility] ical 18-64 YRS Branch Influenza Virus 2017-06-15 Completed [facility] Vaccine Quad ID 00:00:00 [facility] ical 18-64 YRS Branch Influenza Virus 2017-06-15 Completed [facility] Vaccine Quad ID 00:00:00 [facility] ical 18-64 YRS Branch Influenza Virus 2017-06-15 Completed [facility] Vaccine [facility] ID 00:00:00 [place] [facility] 18-64 YRS [facility] Influenza Virus 2017-06-15 Completed [facility] Vaccine Quad ID 00:00:00 [place] [facility] 18-64 YRS Branch Influenza Virus 2017-06-15 Completed [facility] Vaccine Quad ID 00:00:00 [place] [facility] 18-64 YRS Branch Influenza Virus 2017-06-15 Completed [facility] Vaccine Quad ID 00:00:00 [place] [facility] 18-64 YRS Branch Influenza Virus 2017-06-15 Completed [facility] Vaccine Quad ID 00:00:00 [place] [facility] 18-64 YRS Branch Influenza Virus 2017-06-15 Completed [facility] Vaccine [facility] ID 00:00:00 [place] [facility] 18-64 YRS Branch Influenza Virus 2017-06-15 Completed [facility] Vaccine Quad ID 00:00:00 [facility] ical 18-64 YRS Branch Influenza Virus 2017-06-15 Completed [facility] Vaccine Quad ID 00:00:00 [facility] ical 18-64 YRS Branch Influenza Virus 2017-06-15 Completed [facility] Vaccine Quad ID 00:00:00 [facility] ical 18-64 YRS Branch Influenza Virus 2017-06-15 Completed [facility] Vaccine Quad ID 00:00:00 [facility] ical 18-64 YRS Branch Influenza Virus 2017-06-15 Completed [facility] Vaccine Quad ID 00:00:00 [facility] ical 18-64 YRS Branch Influenza Virus 2017-06-15 Completed [facility] Vaccine Quad ID 00:00:00 [facility] ical 18-64 YRS Branch Influenza Virus 2017-06-15 Completed [facility] Vaccine [facility] ID 00:00:00 [place] [facility] 18-64 YRS Branch Influenza Virus 2017-06-15 Completed [facility] Vaccine [facility] ID 00:00:00 [place] [facility] 18-64 YRS Branch Influenza Virus 2017-06-15 Completed [facility] Vaccine [facility] ID 00:00:00 [place] [facility] 18-64 YRS Branch Influenza Virus 2017-06-15 Completed [facility] Vaccine [facility] ID 00:00:00 [place] [facility] 18-64 YRS Branch Influenza Virus 2017-06-15 Completed [facility] Vaccine Quad ID 00:00:00 [place] [facility] 18-64 YRS Branch Influenza Virus 2017-06-15 Completed [facility] Vaccine [facility] ID 00:00:00 [place] [facility] 18-64 YRS Branch Influenza Virus 2017-06-15 Completed [facility] Vaccine [facility] ID 00:00:00 [place] [facility] 18-64 YRS Branch Influenza Virus 2017-06-15 Completed [facility] Vaccine Quad ID 00:00:00 [place] [facility] 18-64 YRS Branch Influenza Virus 2017-06-15 Completed [facility] Vaccine Quad ID 00:00:00 [place] [facility] 18-64 YRS Branch Influenza Virus 2017-06-15 Completed [facility] Vaccine Quad ID 00:00:00 [place] [facility] 18-64 YRS Branch Influenza Virus 2017-06-15 Completed [facility] Vaccine Quad ID 00:00:00 [place] [facility] 18-64 YRS Branch Influenza Virus 2017-06-15 Completed [facility] Vaccine Quad ID 00:00:00 [facility] ical 18-64 YRS Branch Influenza Virus 2017-06-15 Completed [facility] Vaccine Quad ID 00:00:00 [facility] ical 18-64 YRS Branch Influenza Virus 2017-06-15 Completed [facility] Vaccine Quad ID 00:00:00 [facility] ical 18-64 YRS Branch Influenza Virus 2017-06-15 Completed [facility] Vaccine Quad ID 00:00:00 [facility] ical 18-64 YRS Branch Influenza Virus 2017-06-15 Completed [facility] Vaccine Quad ID 00:00:00 [facility] ical 18-64 YRS Branch Influenza Virus 2017-06-15 Completed [facility] Vaccine Quad ID 00:00:00 [facility] ical 18-64 YRS Branch Influenza Virus 2017-06-15 Completed [facility] Vaccine Quad ID 00:00:00 [place] [facility] 18-64 YRS Branch Influenza Virus 2017-06-15 Completed [facility] Vaccine Quad ID 00:00:00 [place] [facility] 18-64 YRS Branch Influenza Virus 2017-06-15 Completed [facility] Vaccine Quad ID 00:00:00 [place] [facility] 18-64 YRS Branch Influenza Virus 2017-06-15 Completed [facility] Vaccine Quad ID 00:00:00 [place] [facility] 18-64 YRS Branch Influenza Virus 2017-06-15 Completed [facility] Vaccine Quad ID 00:00:00 [facility] ical 18-64 YRS Branch Influenza Virus 2017-06-15 Completed [facility] Vaccine Quad ID 00:00:00 [facility] ical 18-64 YRS Branch Influenza Virus 2017-06-15 Completed [facility] Vaccine Quad ID 00:00:00 [place] [facility] 18-64 YRS Branch Influenza Virus 2017-06-15 Completed [facility] Vaccine Quad ID 00:00:00 [facility] ical 18-64 YRS Branch Influenza Virus 2017-06-15 Completed [facility] Vaccine Quad ID 00:00:00 [place] [facility] ical 18-64 YRS Branch Influenza Virus 2017-06-15 Completed [facility] Vaccine Quad ID 00:00:00 [facility] ical 18-64 YRS Branch Influenza Virus 2017-06-15 Completed [facility] Vaccine Quad ID 00:00:00 [place] [facility] 18-64 YRS Branch Influenza Virus 2017-06-15 Completed [facility] Vaccine Quad ID 00:00:00 [facility] ical 18-64 YRS Branch Influenza Virus 2017-06-15 Completed [facility] Vaccine Quad ID 00:00:00 [facility] ical 18-64 YRS Branch Influenza Virus 2017-06-15 Completed [facility] Vaccine Quad ID 00:00:00 [facility] ical 18-64 YRS Branch Influenza Virus 2017-06-15 Completed [facility] Vaccine Quad ID 00:00:00 [facility] ical 18-64 YRS Branch Influenza Virus 2017-06-15 Completed [facility] Vaccine Quad ID 00:00:00 [facility] ical 18-64 YRS Branch Influenza Virus 2017-06-15 Completed [facility] Vaccine Quad ID 00:00:00 [facility] ical 18-64 YRS Branch Influenza Virus 2017-06-15 Completed [facility] Vaccine Quad ID 00:00:00 [place] [facility] ical 18-64 YRS Branch Influenza Virus 2017-06-15 Completed [facility] Vaccine Quad ID 00:00:00 [facility] ical 18-64 YRS Branch Influenza Virus 2017-06-15 Completed [facility] Vaccine Quad ID 00:00:00 [place] [facility] 18-64 YRS Branch Influenza Virus 2017-06-15 Completed [facility] Vaccine Quad ID 00:00:00 [facility] ical 18-64 YRS Branch Influenza Virus 2017-06-15 Completed [facility] Vaccine Quad ID 00:00:00 [facility] ical 18-64 YRS Branch Influenza Virus 2017-06-15 Completed [facility] Vaccine Quad ID 00:00:00 [facility] ical 18-64 YRS Branch Influenza Virus 2017-06-15 Completed [facility] Vaccine Quad ID 00:00:00 [place] [facility] 18-64 YRS Branch Influenza Virus 2017-06-15 Completed [facility] Vaccine Quad ID 00:00:00 [facility] ical 18-64 YRS Branch Influenza Virus 2017-06-15 Completed [facility] Vaccine Quad ID 00:00:00 [facility] ical 18-64 YRS Branch Influenza Virus 2017-06-15 Completed [facility] Vaccine Quad ID 00:00:00 [facility] ical 18-64 YRS Branch Influenza Virus 2017-06-15 Completed [facility] Vaccine Quad ID 00:00:00 [facility] ical 18-64 YRS Branch Influenza Virus 2017-06-15 Completed [facility] Vaccine Quad ID 00:00:00 [facility] ical 18-64 YRS Branch Influenza Virus 2017-06-15 Completed [facility] Vaccine Quad ID 00:00:00 [facility] ical 18-64 YRS Branch Influenza Virus 2017-06-15 Completed [facility] Vaccine Quad ID 00:00:00 [facility] ical 18-64 YRS Branch Influenza Virus 2017-06-15 Completed [facility] Vaccine Quad ID 00:00:00 [facility] ical 18-64 YRS Branch Influenza Virus 2017-06-15 Completed [facility] Vaccine Quad ID 00:00:00 [facility] ical 18-64 YRS Branch Influenza Virus 2017-06-15 Completed [facility] Vaccine Quad ID 00:00:00 [facility] ica 18-64 YRS Branch Influenza Virus 2017-06-15 Completed [facility] Vaccine Quad ID 00:00:00 [facility] ical 18-64 YRS Branch Influenza Virus 2017-06-15 Completed [facility] Vaccine Quad ID 00:00:00 [facility] ical 18-64 YRS Branch Influenza Virus 2017-06-15 Completed [facility] Vaccine [facility] ID 00:00:00 [place] [facility] 18-64 YRS Branch Influenza Virus 2017-06-15 Completed [facility] Vaccine Quad ID 00:00:00 [facility] ical 18-64 YRS Branch Influenza Virus 2017-06-15 Completed [facility] Vaccine Quad ID 00:00:00 [facility] ical 18-64 YRS Branch Influenza Virus 2017-06-15 Completed [facility] Vaccine Quad ID 00:00:00 [facility] ical 18-64 YRS Branch Influenza Virus 2017-06-15 Completed [facility] Vaccine Quad ID 00:00:00 [place] [facility] 18-64 YRS Branch Influenza Virus 2017-06-15 Completed [facility] Vaccine Quad ID 00:00:00 [place] [facility] 18-64 YRS Branch Influenza Virus 2017-06-15 Completed [facility] Vaccine Quad ID 00:00:00 [place] [facility] 18-64 YRS Branch Influenza Virus [...] [facility] Vaccine Quad ID 00:00:00 [facility] ical 18-64 YRS Branch Influenza Virus 2017-06-15 Completed [facility] Vaccine Quad ID 00:00:00 [facility] ical 18-64 YRS Branch Influenza Virus 2017-06-15 Completed [facility] Vaccine Quad ID 00:00:00 [facility] ical 18-64 YRS Branch Influenza Virus 2017-06-15 Completed [facility] Vaccine Quad ID 00:00:00 [facility] ical 18-64 YRS Branch Influenza Virus 2017-06-15 Completed [facility] Vaccine Quad ID 00:00:00 [facility] ical 18-64 YRS Branch Influenza Virus 2017-06-15 Completed [facility] Vaccine Quad ID 00:00:00 [place] [facility] ical 18-64 YRS Branch Influenza Virus [...] [facility] Vaccine Quad ID 00:00:00 [place] [facility] 18-64 YRS Branch Influenza Virus 2017-06-15 Completed [facility] Vaccine Quad ID 00:00:00 [place] [facility] 18-64 YRS [place] Influenza Virus 2016-08-05 Completed [facility] of [...] [facility] Vaccine [facility] IM 00:00:00 [place] [facility] Multi-dose 6+ [place] Branch Influenza Virus 2016-08-05 Completed [facility] Vaccine [facility] IM 00:00:00 [place] [facility] Multi-dose 6+ MO Branch Influenza Virus 2016-08-05 Completed [facility] Vaccine [facility] IM 00:00:00 [place] [facility] Multi-dose 6+ [place] [facility] Influenza Virus 2016-08-05 Completed [facility] Vaccine Quad IM 00:00:00 [facility] ical Multi-dose 6+ [place] Branch Pneumococcal 13 2016-03-07 Completed [facility] of Conjugate, PCV13 00:00:00 [facility] dical (Prevnar 13) Branch Meningococcal B, OMV 2016-03-07 Completed Univ ersity of 00:00:00 [facility] Pneumococcal 13 2016-03-07 Completed [facility] y of Conjugate, PCV13 00:00:00 [facility] dical (Prevnar 13) Branch Meningococcal B, OMV 2016-03-07 Completed Univ ersity of 00:00:00 [facility] Pneumococcal 13 2016-03-07 Completed Universit y of Conjugate, PCV13 00:00:00 [facility] dical (Prevnar 13) Branch Meningococcal B, OMV 2016-03-07 Completed Univ ersity of 00:00:00 [facility] Pneumococcal 13 2016-03-07 Completed [facility]it [facility] of Conjugate, PCV13 00:00:00 [facility] dical (Prevnar 13) Branch Meningococcal B, OMV 2016-03-07 Completed Univ ersity of 00:00:00 [facility] Pneumococcal 13 2016-03-07 Completed [facility]it y of Conjugate, PCV13 00:00:00 [facility] dical (Prevnar 13) Branch Meningococcal B, OMV 2016-03-07 Completed Univ ersity of 00:00:00 [facility] Pneumococcal 13 2016-03-07 Completed [facility]it y of Conjugate, PCV13 00:00:00 [facility] dical (Prevnar 13) Branch Meningococcal B, OMV 2016-03-07 Completed Univ ersity of 00:00:00 [facility] Pneumococcal 13 2016-03-07 Completed Universit y of Conjugate, PCV13 00:00:00 [facility] dical (Prevnar 13) Branch Meningococcal B, OMV 2016-03-07 Completed Univ ersity of 00:00:00 [facility] Pneumococcal 13 2016-03-07 Completed [facility] of Conjugate, PCV13 00:00:00 [place] [facility] (Prevnar 13) Branch Meningococcal B, V 2016-03-07 Completed Univ ersity of 00:00:00 [facility] Pneumococcal 13 2016-03-07 Completed [facility] of Conjugate, PCV13 00:00:00 [place] [facility] (Prevnar 13) Branch Meningococcal B, [facility] 2016-03-07 Completed Univ ersity of 00:00:00 [facility] Pneumococcal 13 2016-03-07 Completed [facility] of Conjugate, PCV13 00:00:00 [place] [facility] (Prevnar 13) Branch Meningococcal B, [facility] 2016-03-07 Completed Univ ersity of 00:00:00 [facility] Pneumococcal 13 2016-03-07 Completed [facility] of Conjugate, PCV13 00:00:00 [place] [facility] (Prevnar 13) Branch Meningococcal B, [facility] 2016-03-07 Completed Univ ersity of 00:00:00 [facility] Pneumococcal 13 2016-03-07 Completed [facility] of Conjugate, PCV13 00:00:00 [place] [facility] (Prevnar 13) Branch Meningococcal B, [facility] 2016-03-07 Completed Univ ersity of 00:00:00 [facility] Pneumococcal 13 2016-03-07 Completed [facility] of Conjugate, PCV13 00:00:00 [place] [facility] (Prevnar 13) Branch Meningococcal B, [facility] 2016-03-07 Completed Univ ersity of 00:00:00 [facility] Pneumococcal 13 2016-03-07 Completed [facility]it y of Conjugate, PCV13 00:00:00 [place] [facility] (Prevnar 13) Branch Meningococcal B, [facility] 2016-03-07 Completed Univ ersity of 00:00:00 [facility] Pneumococcal 13 2016-03-07 Completed [facility] y of Conjugate, PCV13 00:00:00 [place] [facility] (Prevnar 13) Branch Meningococcal B, [facility] 2016-03-07 Completed Univ ersity of 00:00:00 [facility] Pneumococcal 13 2016-03-07 Completed [facility] of Conjugate, PCV13 00:00:00 [place] [facility] (Prevnar 13) Branch Meningococcal B, [facility] 2016-03-07 Completed Univ ersity of 00:00:00 [facility] Pneumococcal 13 2016-03-07 Completed [facility] y of Conjugate, PCV13 00:00:00 [place] [facility] (Prevnar 13) Branch Meningococcal B, V 2016-03-07 Completed Univ ersity of 00:00:00 [facility] Pneumococcal 13 2016-03-07 Completed [facility] of Conjugate, PCV13 00:00:00 [place] [facility] (Prevnar 13) Branch Meningococcal B, [facility] 2016-03-07 Completed Univ ersity of 00:00:00 [facility] Pneumococcal 13 2016-03-07 Completed [facility]it [facility] of Conjugate, PCV13 00:00:00 [place] [facility] (Prevnar 13) Branch Meningococcal B, [facility] 2016-03-07 Completed Univ ersity of 00:00:00 [facility] Pneumococcal 13 2016-03-07 Completed [facility]it y of Conjugate, PCV13 00:00:00 [place] [facility] (Prevnar 13) Branch Meningococcal B, [facility] 2016-03-07 Completed Univ ersity of 00:00:00 [facility] Pneumococcal 13 2016-03-07 Completed [facility] of Conjugate, PCV13 00:00:00 [place] [facility] (Prevnar 13) Branch Meningococcal B, [facility] 2016-03-07 Completed Univ ersity of 00:00:00 [facility] Pneumococcal 13 2016-03-07 Completed [facility]it y of Conjugate, PCV13 00:00:00 [place] [facility] (Prevnar 13) Branch Meningococcal B, [facility] 2016-03-07 Completed Univ ersity of 00:00:00 [facility] Pneumococcal 13 2016-03-07 Completed [facility] of Conjugate, PCV13 00:00:00 [place] [facility] (Prevnar 13) Branch Meningococcal B, [facility] 2016-03-07 Completed Univ ersity of 00:00:00 [facility] Pneumococcal 13 2016-03-07 Completed [facility]it y of Conjugate, PCV13 00:00:00 [place] [facility] (Prevnar 13) Branch Meningococcal B, [facility] 2016-03-07 Completed Univ ersity of 00:00:00 [facility] Pneumococcal 13 2016-03-07 Completed [facility] y of Conjugate, PCV13 00:00:00 [place] [facility] (Prevnar 13) Branch Meningococcal B, [facility] 2016-03-07 Completed Univ ersity of 00:00:00 [facility] Pneumococcal 13 2016-03-07 Completed [facility] y of Conjugate, PCV13 00:00:00 [place] [facility] (Prevnar 13) Branch Meningococcal B, [facility] 2016-03-07 Completed Univ ersity of 00:00:00 [facility] Branch Pneumococcal 13 2016-03-07 Completed [facility]it y of Conjugate, PCV13 00:00:00 [place] [facility] (Prevnar 13) Branch Meningococcal B, [facility] 2016-03-07 Completed Univ ersity of 00:00:00 [facility] Pneumococcal 13 2016-03-07 Completed [facility]it y of Conjugate, PCV13 00:00:00 [place] [facility] (Prevnar 13) Branch Meningococcal B, [facility] 2016-03-07 Completed Univ ersity of 00:00:00 [facility] Pneumococcal 13 2016-03-07 Completed [facility] of Conjugate, PCV13 00:00:00 [place] [facility] (Prevnar 13) Branch Meningococcal B, [facility] 2016-03-07 Completed Univ ersity of 00:00:00 [facility] Pneumococcal 13 2016-03-07 Completed [facility] of Conjugate, PCV13 00:00:00 [place] [facility] (Prevnar 13) Branch Meningococcal B, [facility] 2016-03-07 Completed Univ ersity of 00:00:00 [facility] Pneumococcal 13 2016-03-07 Completed [facility] of Conjugate, PCV13 00:00:00 [place] [facility] (Prevnar 13) Branch Meningococcal B, [facility] 2016-03-07 Completed Univ ersity of 00:00:00 [facility] Pneumococcal 13 2016-03-07 Completed [facility] y of Conjugate, PCV13 00:00:00 [place] [facility] (Prevnar 13) Branch Meningococcal B, [facility] 2016-03-07 Completed Univ ersity of 00:00:00 [facility] Pneumococcal 13 2016-03-07 Completed [facility] y of Conjugate, PCV13 00:00:00 [place] [facility] (Prevnar 13) Branch Meningococcal B, [facility] 2016-03-07 Completed Univ ersity of 00:00:00 [facility] Pneumococcal 13 2016-03-07 Completed [facility] y of Conjugate, PCV13 00:00:00 [place] [facility] (Prevnar 13) Branch Meningococcal B, [facility] 2016-03-07 Completed Univ ersity of 00:00:00 [facility] Pneumococcal 13 2016-03-07 Completed [facility]it y of Conjugate, PCV13 00:00:00 [place] [facility] (Prevnar 13) Branch Meningococcal B, [facility] 2016-03-07 Completed Univ ersity of 00:00:00 [facility] Branch Pneumococcal 13 2016-03-07 Completed [facility]it y of Conjugate, PCV13 00:00:00 [place] [facility] (Prevnar 13) Branch Meningococcal B, [facility] 2016-03-07 Completed Univ ersity of 00:00:00 [facility] Branch Pneumococcal 13 2016-03-07 Completed [facility]it y of Conjugate, PCV13 00:00:00 [place] [facility] (Prevnar 13) Branch Meningococcal B, [facility] 2016-03-07 Completed Univ ersity of 00:00:00 [facility] Branch Pneumococcal 13 2016-03-07 Completed [facility]it y of Conjugate, PCV13 00:00:00 [place] [facility] (Prevnar 13) Branch Meningococcal B, [facility] 2016-03-07 Completed Univ ersity of 00:00:00 [facility] Pneumococcal 13 2016-03-07 Completed [facility]it y of Conjugate, PCV13 00:00:00 [place] [facility] (Prevnar 13) Branch Meningococcal B, [facility] 2016-03-07 Completed Univ ersity of 00:00:00 [facility] Pneumococcal 13 2016-03-07 Completed [facility]it y of Conjugate, PCV13 00:00:00 [place] [facility] (Prevnar 13) Branch Meningococcal B, [facility] 2016-03-07 Completed Univ ersity of 00:00:00 [facility] Pneumococcal 13 2016-03-07 Completed [facility] y of Conjugate, PCV13 00:00:00 [place] [facility] (Prevnar 13) Branch Meningococcal B, [facility] 2016-03-07 Completed Univ ersity of 00:00:00 [facility] Pneumococcal 13 2016-03-07 Completed [facility]it y of Conjugate, PCV13 00:00:00 [place] [facility] (Prevnar 13) Branch Meningococcal B, [facility] 2016-03-07 Completed [facility] ersity of 00:00:00 [facility] Pneumococcal 13 2016-03-07 Completed [facility]it y of Conjugate, PCV13 00:00:00 [place] [facility] (Prevnar 13) Branch Meningococcal B, [facility] 2016-03-07 Completed Univ ersity of 00:00:00 [facility] Pneumococcal 13 2016-03-07 Completed [facility] y of Conjugate, PCV13 00:00:00 [place] [facility] (Prevnar 13) Branch Meningococcal B, V 2016-03-07 Completed [facility] ersity of 00:00:00 [facility] Branch Pneumococcal 13 2016-03-07 Completed [facility]it y of Conjugate, PCV13 00:00:00 [place] [facility] (Prevnar 13) Branch Meningococcal B, V 2016-03-07 Completed [facility] ersity of 00:00:00 [facility] Branch Pneumococcal 13 2016-03-07 Completed [facility]it y of Conjugate, PCV13 00:00:00 [place] [facility] (Prevnar 13) Branch Meningococcal B, [facility] 2016-03-07 Completed [facility] ersity of 00:00:00 [facility] Branch Pneumococcal 13 2016-03-07 Completed [facility] y of Conjugate, PCV13 00:00:00 [place] [facility] (Prevnar 13) Branch Meningococcal B, [facility] 2016-03-07 Completed [facility] ersity of 00:00:00 [facility] Branch Pneumococcal 13 2016-03-07 Completed [facility]it y of Conjugate, PCV13 00:00:00 [place] [facility] (Prevnar 13) Branch Meningococcal B, [facility] 2016-03-07 Completed Univ ersity of 00:00:00 [facility] Pneumococcal 13 2016-03-07 Completed [facility]it y of Conjugate, PCV13 00:00:00 [place] [facility] (Prevnar 13) Branch Meningococcal B, [facility] 2016-03-07 Completed Univ ersity of 00:00:00 [facility] Pneumococcal 13 2016-03-07 Completed [facility]it y of Conjugate, PCV13 00:00:00 [place] [facility] (Prevnar 13) Branch Meningococcal B, V 2016-03-07 Completed [facility] ersity of 00:00:00 [facility] Pneumococcal 13 2016-03-07 Completed [facility] y of Conjugate, PCV13 00:00:00 [place] [facility] (Prevnar 13) Branch Meningococcal B, [facility] 2016-03-07 Completed Univ ersity of 00:00:00 [facility] Pneumococcal 13 2016-03-07 Completed [facility] y of Conjugate, PCV13 00:00:00 [place] [facility] (Prevnar 13) Branch Meningococcal B, [facility] 2016-03-07 Completed Univ ersity of 00:00:00 [facility] Pneumococcal 13 2016-03-07 Completed [facility] y of Conjugate, PCV13 00:00:00 [place] [facility] (Prevnar 13) Branch Meningococcal B, V 2016-03-07 Completed [facility] ersity of 00:00:00 [facility] Branch Pneumococcal 13 2016-03-07 Completed [facility] y of Conjugate, PCV13 00:00:00 [place] [facility] (Prevnar 13) Branch Meningococcal B, V 2016-03-07 Completed [facility] ersity of 00:00:00 [facility] Branch Pneumococcal 13 2016-03-07 Completed [facility] y of Conjugate, PCV13 00:00:00 [place] [facility] (Prevnar 13) Branch Meningococcal B, V 2016-03-07 Completed [facility] ersity of 00:00:00 [facility] Branch Pneumococcal 13 2016-03-07 Completed [facility] y of Conjugate, PCV13 00:00:00 [place] [facility] (Prevnar 13) Branch Meningococcal B, V 2016-03-07 Completed [facility] ersity of 00:00:00 [facility] Branch Pneumococcal 13 2016-03-07 Completed [facility] y of Conjugate, PCV13 00:00:00 [place] [facility] (Prevnar 13) Branch Meningococcal B, V 2016-03-07 Completed [facility] ersity of 00:00:00 [facility] Pneumococcal 13 2016-03-07 Completed [facility] y of Conjugate, PCV13 00:00:00 [place] [facility] (Prevnar 13) Branch Meningococcal B, V 2016-03-07 Completed [facility] ers[facility] of 00:00:00 [facility] Pneumococcal 13 2016-03-07 Completed [facility] y of Conjugate, PCV13 00:00:00 [place] [facility] (Prevnar 13) Branch Meningococcal B, V 2016-03-07 Completed [facility] ersity of 00:00:00 [facility] Pneumococcal 13 2016-03-07 Completed [facility] y of Conjugate, PCV13 00:00:00 [place] [facility] (Prevnar 13) Branch Meningococcal B, V 2016-03-07 Completed [facility] ersity of 00:00:00 [facility] Pneumococcal 13 2016-03-07 Completed [facility] y of Conjugate, PCV13 00:00:00 [place] [facility] (Prevnar 13) Branch Meningococcal B, V 2016-03-07 Completed [facility] ers[facility] of 00:00:00 [facility] Pneumococcal 13 2016-03-07 Completed [facility] y of Conjugate, PCV13 00:00:00 [facility] dical (Prevnar 13) Branch Meningococcal B, V 2016-03-07 Completed Univ ersity of 00:00:00 [facility] Branch Pneumococcal 13 2016-03-07 Completed [facility] y of Conjugate, PCV13 00:00:00 [place] [facility] (Prevnar 13) Branch Meningococcal B, V 2016-03-07 Completed [facility] ersity of 00:00:00 [facility] Branch Pneumococcal 13 2016-03-07 Completed [facility] y of Conjugate, PCV13 00:00:00 [place] [facility] (Prevnar 13) Branch Meningococcal B, V 2016-03-07 Completed [facility] ers[facility] of 00:00:00 [facility] Pneumococcal 13 2016-03-07 Completed [facility] y of Conjugate, PCV13 00:00:00 [place] [facility] (Prevnar 13) Branch Meningococcal B, [facility] 2016-03-07 Completed Univ ersity of 00:00:00 [facility] Pneumococcal 13 2016-03-07 Completed [facility] y of Conjugate, PCV13 00:00:00 [place] [facility] (Prevnar 13) Branch Meningococcal B, [facility] 2016-03-07 Completed Univ ersity of 00:00:00 [facility] Pneumococcal 13 2016-03-07 Completed [facility] y of Conjugate, PCV13 00:00:00 [place] [facility] (Prevnar 13) Branch Meningococcal B, [facility] 2016-03-07 Completed [facility] ersity of 00:00:00 [facility] Pneumococcal 13 2016-03-07 Completed [facility] y of Conjugate, PCV13 00:00:00 [place] [facility] (Prevnar 13) Branch Meningococcal B, [facility] 2016-03-07 Completed [facility] ersity of 00:00:00 [facility] Pneumococcal 13 2016-03-07 Completed [facility] y of Conjugate, PCV13 00:00:00 [place] [facility] (Prevnar 13) Branch Meningococcal B, [facility] 2016-03-07 Completed [facility] ersity of 00:00:00 [facility] Pneumococcal 13 2016-03-07 Completed [facility] y of Conjugate, PCV13 00:00:00 [place] [facility] (Prevnar 13) Branch Meningococcal B, [facility] 2016-03-07 Completed Univ ersity of 00:00:00 [facility] Pneumococcal 13 2016-03-07 Completed [facility] y of Conjugate, PCV13 00:00:00 [place] [facility] (Prevnar 13) Branch Meningococcal B, [facility] 2016-03-07 Completed Univ ersity of 00:00:00 [facility] Pneumococcal 13 2016-03-07 Completed [facility] y of Conjugate, PCV13 00:00:00 [place] [facility] (Prevnar 13) Branch Meningococcal B, V 2016-03-07 Completed [facility] ersity of 00:00:00 [facility] Pneumococcal 13 2016-03-07 Completed [facility] y of Conjugate, PCV13 00:00:00 [place] [facility] (Prevnar 13) Branch Meningococcal B, V 2016-03-07 Completed [facility] ersity of 00:00:00 [facility] Pneumococcal 13 2016-03-07 Completed [facility] y of Conjugate, PCV13 00:00:00 [place] [facility] (Prevnar 13) Branch Meningococcal B, [facility] 2016-03-07 Completed Univ ersity of 00:00:00 [facility] Pneumococcal 13 2016-03-07 Completed [facility] y of Conjugate, PCV13 00:00:00 [place] [facility] (Prevnar 13) Branch Meningococcal B, [facility] 2016-03-07 Completed [facility] ersity of 00:00:00 [facility] Pneumococcal 13 2016-03-07 Completed [facility] y of Conjugate, PCV13 00:00:00 [place] [facility] (Prevnar 13) Branch Meningococcal B, [facility] 2016-03-07 Completed [facility] ersity of 00:00:00 [facility] Pneumococcal 13 2016-03-07 Completed [facility] y of Conjugate, PCV13 00:00:00 [place] [facility] (Prevnar 13) Branch Meningococcal B, [facility] 2016-03-07 Completed [facility] ersity of 00:00:00 [facility] Pneumococcal 13 2016-03-07 Completed [facility] y of Conjugate, PCV13 00:00:00 [place] [facility] (Prevnar 13) Branch Meningococcal B, [facility] 2016-03-07 Completed [facility] ersity of 00:00:00 [facility] Pneumococcal 13 2016-03-07 Completed [facility] y of Conjugate, PCV13 00:00:00 [place] [facility] (Prevnar 13) Branch Meningococcal B, [facility] 2016-03-07 Completed [facility] ersity of 00:00:00 [facility] Pneumococcal 13 2016-03-07 Completed [facility] y of Conjugate, PCV13 00:00:00 [place] [facility] (Prevnar 13) Branch Meningococcal B, [facility] 2016-03-07 Completed [facility] ersity of 00:00:00 [facility] Pneumococcal 13 2016-03-07 Completed [facility]it y of Conjugate, PCV13 00:00:00 [place] [facility] (Prevnar 13) Branch Meningococcal B, V 2016-03-07 Completed [facility] ersity of 00:00:00 [facility] Pneumococcal 13 2016-03-07 Completed [facility] y of Conjugate, PCV13 00:00:00 [place] [facility] (Prevnar 13) Branch Meningococcal B, V 2016-03-07 Completed [facility] ers[facility] of 00:00:00 [facility] Pneumococcal 13 2016-03-07 Completed [facility] y of Conjugate, PCV13 00:00:00 [place] [facility] (Prevnar 13) Branch Meningococcal B, V 2016-03-07 Completed [facility] ers[facility] of 00:00:00 [facility] Pneumococcal 13 2016-03-07 Completed [facility] y of Conjugate, PCV13 00:00:00 [place] [facility] (Prevnar 13) Branch Meningococcal B, V 2016-03-07 Completed [facility] of 00:00:00 [facility] Pneumococcal 13 2016-03-07 Completed [facility] y of Conjugate, PCV13 00:00:00 [place] [facility] (Prevnar 13) Branch Meningococcal B, [facility] 2016-03-07 Completed [facility] ersity of 00:00:00 [facility] Pneumococcal 13 2016-03-07 Completed [facility] y of Conjugate, PCV13 00:00:00 [place] [facility] (Prevnar 13) Branch Meningococcal B, [facility] 2016-03-07 Completed [facility] ers[facility] of 00:00:00 [facility] Pneumococcal 13 2016-03-07 Completed [facility] y of Conjugate, PCV13 00:00:00 [place] [facility] (Prevnar 13) Branch Meningococcal B, [facility] 2016-03-07 Completed [facility] ersity of 00:00:00 [facility] Pneumococcal 13 2016-03-07 Completed [facility] y of Conjugate, PCV13 00:00:00 [place] [facility] (Prevnar 13) Branch Meningococcal B, [facility] 2016-03-07 Completed [facility] ers[facility] of 00:00:00 [facility] Pneumococcal 13 2016-03-07 Completed [facility] y of Conjugate, PCV13 00:00:00 [place] [facility] (Prevnar 13) Branch Meningococcal B, [facility] 2016-03-07 Completed [facility] of 00:00:00 [facility] Pneumococcal 13 2016-03-07 Completed [facility] y of Conjugate, PCV13 00:00:00 [place] [facility] (Prevnar 13) Branch Meningococcal B, V 2016-03-07 Completed [facility] of 00:00:00 [facility] Pneumococcal 13 2016-03-07 Completed [facility] y of Conjugate, PCV13 00:00:00 [place] [facility] (Prevnar 13) Branch Meningococcal B, V 2016-03-07 Completed [facility] of 00:00:00 [facility] Pneumococcal 13 2016-03-07 Completed [facility] of Conjugate, PCV13 00:00:00 [place] [facility] (Prevnar 13) Branch Meningococcal B, V 2016-03-07 Completed [facility] of 00:00:00 [facility] Pneumococcal 13 2016-03-07 Completed [facility] y of Conjugate, PCV13 00:00:00 [place] [facility] (Prevnar 13) Branch Meningococcal B, [facility] 2016-03-07 Completed [facility] of 00:00:00 [facility] Pneumococcal 13 2016-03-07 Completed [facility] y of Conjugate, PCV13 00:00:00 [place] [facility] (Prevnar 13) Branch Meningococcal B, [facility] 2016-03-07 Completed [facility] of 00:00:00 [facility] Pneumococcal 13 2016-03-07 Completed [facility] y of Conjugate, PCV13 00:00:00 [place] [facility] (Prevnar 13) Branch Meningococcal B, V 2016-03-07 Completed [facility] of 00:00:00 [facility] Pneumococcal 13 2016-03-07 Completed [facility] y of Conjugate, PCV13 00:00:00 [place] [facility] (Prevnar 13) Branch Meningococcal B, V 2016-03-07 Completed [facility] of 00:00:00 [facility] Pneumococcal 13 2016-03-07 Completed [facility] y of Conjugate, PCV13 00:00:00 [place] [facility] (Prevnar 13) Branch Meningococcal B, V 2016-03-07 Completed [facility] of 00:00:00 [facility] Pneumococcal 13 2016-03-07 Completed [facility] of Conjugate, PCV13 00:00:00 [place] [facility] (Prevnar 13) Branch Meningococcal B, [facility] 2016-03-07 Completed [facility] 00:00:00 [facility] Pneumococcal 13 2016-03-07 Completed [facility] Conjugate, PCV13 00:00:00 [place] [facility] (Prevnar 13) Branch Meningococcal B, [facility] 2016-03-07 Completed Univ ersity of 00:00:00 [facility] Pneumococcal 13 2016-03-07 Completed [facility]it [facility] of Conjugate, PCV13 00:00:00 [place] [facility] (Prevnar 13) Branch Meningococcal B, V 2016-03-07 Completed Univ ersity of 00:00:00 [facility] Pneumococcal 13 2016-03-07 Completed [facility]it [facility] of Conjugate, PCV13 00:00:00 [place] [facility] (Prevnar 13) Branch Meningococcal B, [facility] 2016-03-07 Completed Univ ersity of 00:00:00 [facility] Pneumococcal 13 2016-03-07 Completed [facility]it [facility] of Conjugate, PCV13 00:00:00 [place] [facility] (Prevnar 13) Branch Meningococcal B, [facility] 2016-03-07 Completed Univ ersity of 00:00:00 [facility] Pneumococcal 13 2016-03-07 Completed [facility]it [facility] of Conjugate, PCV13 00:00:00 [place] [facility] (Prevnar 13) Branch Meningococcal B, [facility] 2016-03-07 Completed Univ ersity of 00:00:00 [facility] Pneumococcal 13 2016-03-07 Completed [facility]it [facility] of Conjugate, PCV13 00:00:00 [place] [facility] (Prevnar 13) Branch Meningococcal B, [facility] 2016-03-07 Completed Univ ersity of 00:00:00 [facility] Pneumococcal 13 2016-03-07 Completed [facility]it [facility] of Conjugate, PCV13 00:00:00 [place] [facility] (Prevnar 13) Branch Meningococcal B, [facility] 2016-03-07 Completed Univ ersity of 00:00:00 [facility] Pneumococcal 13 2016-03-07 Completed [facility]it [facility] of Conjugate, PCV13 00:00:00 [place] [facility] (Prevnar 13) Branch Meningococcal B, [facility] 2016-03-07 Completed Univ ersity of 00:00:00 [facility] Pneumococcal 13 2016-03-07 Completed [facility]it [facility] of Conjugate, PCV13 00:00:00 [place] [facility] (Prevnar 13) Branch Meningococcal B, [facility] 2016-03-07 Completed Univ ersity of 00:00:00 [facility] Pneumococcal 13 2016-03-07 Completed [facility] of Conjugate, PCV13 00:00:00 [place] [facility] (Prevnar 13) Branch Meningococcal B, V 2016-03-07 Completed Univ ersity of 00:00:00 [facility] Pneumococcal 13 2016-03-07 Completed [facility]it [facility] of Conjugate, PCV13 00:00:00 [place] [facility] (Prevnar 13) Branch Meningococcal B, [facility] 2016-03-07 Completed Univ ersity of 00:00:00 [facility] Pneumococcal 13 2016-03-07 Completed [facility]it y of Conjugate, PCV13 00:00:00 [place] [facility] (Prevnar 13) Branch Meningococcal B, [facility] 2016-03-07 Completed Univ ersity of 00:00:00 [facility] Pneumococcal 13 2016-03-07 Completed [facility]it y of Conjugate, PCV13 00:00:00 [place] [facility] (Prevnar 13) Branch Meningococcal B, [facility] 2016-03-07 Completed Univ ersity of 00:00:00 [facility] Pneumococcal 13 2016-03-07 Completed [facility]it y of Conjugate, PCV13 00:00:00 [place] [facility] (Prevnar 13) Branch Meningococcal B, [facility] 2016-03-07 Completed Univ ersity of 00:00:00 [facility] Pneumococcal 13 2016-03-07 Completed [facility]it [facility] of Conjugate, PCV13 00:00:00 [place] [facility] (Prevnar 13) Branch Meningococcal B, [facility] 2016-03-07 Completed Univ ersity of 00:00:00 [facility] Pneumococcal 13 2016-03-07 Completed [facility]it [facility] of Conjugate, PCV13 00:00:00 [place] [facility] (Prevnar 13) Branch Meningococcal B, [facility] 2016-03-07 Completed Univ ersity of 00:00:00 [facility] Pneumococcal 13 2016-03-07 Completed [facility]it y of Conjugate, PCV13 00:00:00 [place] [facility] (Prevnar 13) Branch Meningococcal B, [facility] 2016-03-07 Completed Univ ersity of 00:00:00 [facility] Pneumococcal 13 2016-03-07 Completed [facility]it y of Conjugate, PCV13 00:00:00 [place] [facility] (Prevnar 13) Branch Meningococcal B, [facility] 2016-03-07 Completed Univ ersity of 00:00:00 [facility] Pneumococcal 13 2016-03-07 Completed [facility]it y of Conjugate, PCV13 00:00:00 [place] [facility] (Prevnar 13) Branch Meningococcal B, V 2016-03-07 Completed Univ ersity of 00:00:00 [facility] Pneumococcal 13 2016-03-07 Completed [facility]it y of Conjugate, PCV13 00:00:00 [place] [facility] (Prevnar 13) Branch Meningococcal B, [facility] 2016-03-07 Completed Univ ersity of 00:00:00 [facility] Pneumococcal 13 2016-03-07 Completed [facility]it y of Conjugate, PCV13 00:00:00 [place] [facility] (Prevnar 13) Branch Meningococcal B, [facility] 2016-03-07 Completed Univ ersity of 00:00:00 [facility] Pneumococcal 13 2016-03-07 Completed [facility]it y of Conjugate, PCV13 00:00:00 [place] [facility] (Prevnar 13) Branch Meningococcal B, [facility] 2016-03-07 Completed Univ ersity of 00:00:00 [facility] Pneumococcal 13 2016-03-07 Completed Universit y of Conjugate, PCV13 00:00:00 [place] [facility] (Prevnar 13) Branch Meningococcal B, [facility] 2016-03-07 Completed Univ ersity of 00:00:00 [facility] Pneumococcal 13 2016-03-07 Completed [facility]it y of Conjugate, PCV13 00:00:00 [place] [facility] (Prevnar 13) Branch Meningococcal B, [facility] 2016-03-07 Completed Univ ersity of 00:00:00 [facility] Pneumococcal 13 2016-03-07 Completed [facility]it y of Conjugate, PCV13 00:00:00 [place] [facility] (Prevnar 13) Branch Meningococcal B, [facility] 2016-03-07 Completed Univ ersity of 00:00:00 [facility] Pneumococcal 13 2016-03-07 Completed [facility]it y of Conjugate, PCV13 00:00:00 [place] [facility] (Prevnar 13) Branch Meningococcal B, [facility] 2016-03-07 Completed Univ ersity of 00:00:00 [facility] Pneumococcal 13 2016-03-07 Completed [facility]it y of Conjugate, PCV13 00:00:00 [place] [facility] (Prevnar 13) Branch Meningococcal B, [facility] 2016-03-07 Completed Univ ersity of 00:00:00 [facility] Pneumococcal 13 2016-03-07 Completed [facility]it y of Conjugate, PCV13 00:00:00 [place] [facility] (Prevnar 13) Branch Meningococcal B, [facility] 2016-03-07 Completed Univ ersity of 00:00:00 [facility] Pneumococcal 13 2016-03-07 Completed [facility]it y of Conjugate, PCV13 00:00:00 [place] [facility] (Prevnar 13) Branch Meningococcal B, [facility] 2016-03-07 Completed Univ ersity of 00:00:00 [facility] Pneumococcal 13 2016-03-07 Completed [facility]it y of Conjugate, PCV13 00:00:00 [place] [facility] (Prevnar 13) Branch Meningococcal B, [facility] 2016-03-07 Completed Univ ersity of 00:00:00 [facility] Pneumococcal 13 2016-03-07 Completed [facility]it y of Conjugate, PCV13 00:00:00 [place] [facility] (Prevnar 13) Branch Meningococcal B, [facility] 2016-03-07 Completed Univ ersity of 00:00:00 [facility] Pneumococcal 13 2016-03-07 Completed [facility]it y of Conjugate, PCV13 00:00:00 [place] [facility] (Prevnar 13) Branch Meningococcal B, [facility] 2016-03-07 Completed Univ ersity of 00:00:00 [facility] Pneumococcal 13 2016-03-07 Completed [facility]it y of Conjugate, PCV13 00:00:00 [place] [facility] (Prevnar 13) Branch Meningococcal B, [facility] 2016-03-07 Completed Univ ersity of 00:00:00 [facility] Pneumococcal 13 2016-03-07 Completed Universit y of Conjugate, PCV13 00:00:00 [facility] dical (Prevnar 13) Branch Meningococcal B, [facility] 2016-03-07 Completed Univ ersity of 00:00:00 [facility] Pneumococcal 13 2016-03-07 Completed Universit y of Conjugate, PCV13 00:00:00 [facility] dical (Prevnar 13) Branch Meningococcal B, [facility] 2016-03-07 Completed Univ ersity of 00:00:00 [facility] 2015-11-13 Completed University [facility] Influenza B 00:00:00 [facility] Influenza B 00:00:00 [facility] Influenza B 00:00:00 [facility] 2015-11-13 Completed University of Influenza B 00:00:00 [facility] 2015-11-13 Completed University of Influenza B 00:00:00 [facility] 2015-11-13 Completed University of Influenza B 00:00:00 [facility] 2015-11-13 Completed University of Influenza B 00:00:00 [facility] 2015-11-13 Completed University of Influenza B 00:00:00 [facility] 2015-11-13 Completed University of Influenza B 00:00:00 [facility] 2015-11-13 Completed University of Influenza B 00:00:00 [facility] 2015-11-13 Completed University of Influenza B 00:00:00 [facility] 2015-11-13 Completed University of Influenza B 00:00:00 [facility] 2015-11-13 Completed University of Influenza B 00:00:00 [facility] 2015-11-13 Completed University of Influenza B 00:00:00 [facility] 2015-11-13 Completed University of Influenza B 00:00:00 [facility] 2015-11-13 Completed University of Influenza B 00:00:00 [facility] 2015-11-13 Completed University of Influenza B 00:00:00 [facility] 2015-11-13 Completed University of Influenza B 00:00:00 [facility] 2015-11-13 Completed University of Influenza B 00:00:00 [facility] 2015-11-13 Completed University of Influenza B 00:00:00 [facility] 2015-11-13 Completed University of Influenza B 00:00:00 [facility] 2015-11-13 Completed University of Influenza B 00:00:00 [facility] 2015-11-13 Completed University of Influenza B 00:00:00 [facility] 2015-11-13 Completed University of Influenza B 00:00:00 [facility] 2015-11-13 Completed University of Influenza B 00:00:00 [facility] 2015-11-13 Completed University of Influenza B 00:00:00 [facility] 2015-11-13 Completed University of Influenza B 00:00:00 [facility] 2015-11-13 Completed University of Influenza B 00:00:00 [facility] 2015-11-13 Completed University of Influenza B 00:00:00 [facility] 2015-11-13 Completed University of Influenza B 00:00:00 [facility] 2015-11-13 Completed University of Influenza B 00:00:00 [facility] 2015-11-13 Completed University of Influenza B 00:00:00 [facility] 2015-11-13 Completed University of Influenza B 00:00:00 [facility] 2015-11-13 Completed University of Influenza B 00:00:00 [facility] 2015-11-13 Completed University of Influenza B 00:00:00 [facility] 2015-11-13 Completed University of Influenza B 00:00:00 [facility] 2015-11-13 Completed University of Influenza B 00:00:00 [facility] 2015-11-13 Completed University of Influenza B 00:00:00 [facility] 2015-11-13 Completed University of Influenza B 00:00:00 [facility] 2015-11-13 Completed University of Influenza B 00:00:00 [facility] 2015-11-13 Completed University of Influenza B 00:00:00 [facility] 2015-11-13 Completed University of Influenza B 00:00:00 [facility] 2015-11-13 Completed University of Influenza B 00:00:00 [facility] 2015-11-13 Completed University of Influenza B 00:00:00 [facility] 2015-11-13 Completed University of Influenza B 00:00:00 [facility] 2015-11-13 Completed University of Influenza B 00:00:00 [facility] 2015-11-13 Completed University of Influenza B 00:00:00 [facility] 2015-11-13 Completed University of Influenza B 00:00:00 [facility] 2015-11-13 Completed University of Influenza B 00:00:00 [facility] 2015-11-13 Completed University of Influenza B 00:00:00 [facility] 2015-11-13 Completed [facility] Influenza B 00:00:00 [facility] 2015-11-13 Completed University of Influenza B 00:00:00 [facility] 2015-11-13 Completed University of Influenza B 00:00:00 [facility] 2015-11-13 Completed [facility] Influenza B [facility]:00[facility] of Influenza B 00:00:00 [facility] 2015-11-13 Completed University of Influenza B 00:00:00 [facility] 2015-11-13 Completed University of Influenza B 00:00:00 [facility] 2015-11-13 Completed University of Influenza B 00:00:00 [facility] 2015-11-13 Completed University of Influenza B 00:00:00 [facility] 2015-11-13 Completed University of Influenza B 00:00:00 [facility] 2015-11-13 Completed University of Influenza B 00:00:00 [facility] 2015-11-13 Completed University of Influenza B 00:00:00 [facility] 2015-11-13 Completed University of Influenza B 00:00:00 [facility] 2015-11-13 Completed University of Influenza B 00:00:00 [facility] 2015-11-13 Completed University of Influenza B 00:00:00 [facility] 2015-11-13 Completed University of Influenza B 00:00:00 [facility] 2015-11-13 Completed University of Influenza B 00:00:00 [facility] 2015-11-13 Completed University of Influenza B 00:00:00 [facility] 2015-11-13 Completed University of Influenza B 00:00:00 [facility] 2015-11-13 Completed University of Influenza B 00:00:00 [facility] 2015-11-13 Completed University of Influenza B 00:00:00 [facility] 2015-11-13 Completed University of Influenza B 00:00:00 [facility] 2015-11-13 Completed University of Influenza B 00:00:00 [facility] 2015-11-13 Completed University of Influenza B 00:00:00 [facility] 2015-11-13 Completed University of Influenza B 00:00:00 [facility] 2015-11-13 Completed University of Influenza B 00:00:00 [facility] 2015-11-13 Completed University of Influenza B 00:00:00 [facility] 2015-11-13 Completed University of Influenza B 00:00:00 [facility] 2015-11-13 Completed University of Influenza B 00:00:00 [facility] 2015-11-13 Completed University of Influenza B 00:00:00 [facility] 2015-11-13 Completed University of Influenza B 00:00:00 [facility] 2015-11-13 Completed University of Influenza B 00:00:00 [facility] 2015-11-13 Completed University of Influenza B 00:00:00 [facility] 2015-11-13 Completed [facility] of Influenza B 00:00:00 [facility] 2015-11-13 Completed University of Influenza B 00:00:00 [facility] 2015-11-13 Completed University of Influenza B 00:00:00 [facility] 2015-11-13 Completed University of Influenza B 00:00:00 [facility] 2015-11-13 Completed University of Influenza B 00:00:00 [facility] 2015-11-13 Completed University of Influenza B 00:00:00 [facility] 2015-11-13 Completed University of Influenza B 00:00:00 [facility] 2015-11-13 Completed University of Influenza B 00:00:00 [facility] 2015-11-13 Completed University of Influenza B 00:00:00 [facility] 2015-11-13 Completed University of Influenza B 00:00:00 [facility] 2015-11-13 Completed University of Influenza B 00:00:00 [facility] 2015-11-13 Completed University of Influenza B 00:00:00 [facility] 2015-11-13 Completed [facility] of Influenza B 00:00:00 [facility] 2015-11-13 Completed [facility] of Influenza B 00:00:00 [facility] 2015-11-13 Completed [facility] Influ[facility] B [facility] of Influenza B 00:00:00 [facility] 2015-11-13 Completed University of Influenza B 00:00:00 [facility] 2015-11-13 Completed [facility] of Influenza B 00:00:00 [facility] 2015-11-13 Completed University of Influenza B 00:00:00 [facility] 2015-11-13 Completed University of Influenza B 00:00:00 [facility] 2015-11-13 Completed University of Influenza B 00:00:00 [facility] 2015-11-13 Completed University of Influenza B 00:00:00 [facility] 2015-11-13 Completed University of Influenza B 00:00:00 [facility] 2015-11-13 Completed University of Influenza B 00:00:00 [facility] 2015-11-13 Completed University of Influenza B 00:00:00 [facility] 2015-11-13 Completed University of Influenza B 00:00:00 [facility] 2015-11-13 Completed University of Influenza B 00:00:00 [facility] 2015-11-13 Completed University of Influenza B 00:00:00 [facility] 2015-11-13 Completed University of Influenza B 00:00:00 [facility] 2015-11-13 Completed University of Influenza B 00:00:00 [facility] 2015-11-13 Completed University of Influenza B 00:00:00 [facility] 2015-11-13 Completed University of Influenza B 00:00:00 [facility] 2015-11-13 Completed University of Influenza B 00:00:00 [facility] 2015-11-13 Completed University of Influenza B 00:00:00 [facility] 2015-11-13 Completed University of Influenza B 00:00:00 [facility] 2015-11-13 Completed University of Influenza B 00:00:00 [facility] 2015-11-13 Completed [facility] of Influenza B 00:00:00 [facility] 2015-11-13 Completed [facility] Influenza B 00:00:00 [facility] Influenza B 00:00:00 [facility] Com[facility] Influenza B 00[facility]00:00 [facility] Com[facility] Influenza B 00:00:00 [facility] Completed [facility] Influenza B 00[facility]00:00 [facility] Com[facility] Influenza B 00:00:00 [facility] Com[facility] Influenza B 00:00:00 [facility] Influenza B [facility]:00[facility] Influenza B [facility]:00[facility] Com[facility] of Influenza B 00:00:00 [facility] Meningococcal 2015-11-12 Completed [facility] Polysaccharide 00:00:00 [place] [facility] (groups A, C, Y and Branc h W-135) conjugate vaccine (MCV4P) Meningococcal 2015-11-12 Completed [facility] Polysaccharide 00:00:00 [place] [facility] (groups A, C, Y and Branc h W-135) conjugate vaccine (MCV4P) Meningococcal 2015-11-12 Completed [facility] Polysaccharide 00:00:00 [place] [facility] (groups A, C, Y and Branc h W-135) conjugate vaccine (MCV4P) Meningococcal 2015-11-12 Completed [facility] Polysaccharide 00:00:00 [place] [facility] (groups A, C, Y and Branc h W-135) conjugate vaccine (MCV4P) Meningococcal 2015-11-12 Completed [facility] Polysaccharide 00:00:00 [place] [facility] (groups A, C, Y and Branc h W-135) conjugate vaccine (MCV4P) Meningococcal 2015-11-12 Completed [facility] of Polysaccharide 00:00:00 [place] [facility] (groups A, C, Y and Branc h W-135) conjugate vaccine (MCV4P) Meningococcal 2015-11-12 Completed [facility] of Polysaccharide 00:00:00 [place] [facility] (groups A, C, Y and [...] Completed [facility] of Polysaccharide 00:00:00 [place] [facility] (groups A, C, Y and Branc h [...] Meningococcal 2015-11-12 Completed [facility] of Polysaccharide 00:00:00 [facility] cipriano (groups A, C, Y and Branc h W-135) conjugate vaccine (MCV4P) TDAP 2015-10-31 Completed University of 00:00:00 [facility] TDAP 2015-10-31 Completed University of 00:00:00 [facility] TDAP 2015-10-31 Completed University of 00:00:00 [facility] TDAP 2015-10-31 Completed University of 00:00:00 [facility] TDAP 2015-10-31 Completed University of 00:00:00 [facility] TDAP 2015-10-31 Completed University of 00:00:00 [facility] TDAP 2015-10-31 Completed University of 00:00:00 [facility] TDAP 2015-10-31 Completed University of 00:00:00 [facility] TDAP 2015-10-31 Completed University of 00:00:00 [facility] TDAP 2015-10-31 Completed University of 00:00:00 [facility] TDAP 2015-10-31 Completed University of 00:00:00 [facility] TDAP 2015-10-31 Completed University of 00:00:00 [facility] TDAP 2015-10-31 Completed University of 00:00:00 [facility] TDAP 2015-10-31 Completed University of 00:00:00 [facility] TDAP 2015-10-31 Completed University of 00:00:00 [facility] TDAP 2015-10-31 Completed [facility] 00:00:00 [facility] TDAP 2015-10-31 Completed [facility] 00:00:00 [facility] TDAP 2015-10-31 Completed [facility] 00:00:00 [facility] TDAP 2015-10-31 Completed [facility] 00:00:00 [facility] TDAP 2015-10-31 Completed [facility] 00:00:00 [facility] TDAP 2015-10-31 Completed [facility] 00:00:00 [facility] TDAP 2015-10-31 Completed [facility] 00:00:00 [facility] TDAP 2015-10-31 Completed [facility] 00:00:00 [facility] TDAP 2015-10-31 Completed [facility] 00:00:00 [facility] TDAP 2015-10-31 Completed [facility] 00:00:00 [facility] TDAP 2015-10-31 Completed [facility] 00:00:00 [facility] TDAP 2015-10-31 Completed [facility] 00:00:00 [facility] TDAP 2015-10-31 Completed [facility] 00:00:00 [facility] TDAP 2015-10-31 Completed [facility] 00:00:00 [facility] TDAP 2015-10-31 Completed [facility] 00:00:00 [facility] TDAP 2015-10-31 Completed [facility] 00:00:00 [facility] TDAP 2015-10-31 Completed [facility] 00:00:00 [facility] TDAP 2015-10-31 Completed [facility] 00:00:00 [facility] TDAP 2015-10-31 Completed [facility] 00:00:00 [facility] TDAP 2015-10-31 Completed [facility] 00:00:00 [facility] TDAP 2015-10-31 Completed [facility] 00:00:00 [facility] TDAP 2015-10-31 Completed [facility] 00:00:00 [facility] TDAP 2015-10-31 Completed [facility] 00:00:00 [facility] TDAP 2015-10-31 Completed [facility] 00:00:00 [facility] TDAP 2015-10-31 Completed [facility] 00:00:00 [facility] TDAP 2015-10-31 Completed [facility] 00:00:00 [facility] TDAP 2015-10-31 Completed [facility] 00:00:00 [facility] TDAP 2015-10-31 Completed [facility] 00:00:00 [facility] TDAP 2015-10-31 Completed [facility] 00:00:00 [facility] TDAP 2015-10-31 Completed [facility] 00:00:00 [facility] TDAP 2015-10-31 Completed [facility] 00:00:00 [facility] TDAP 2015-10-31 Completed [facility] 00:00:00 [facility] TDAP 2015-10-31 Completed [facility] 00:00:00 [facility] TDAP 2015-10-31 Completed [facility] 00:00:00 [facility] TDAP 2015-10-31 Completed [facility] 00:00:00 [facility] TDAP 2015-10-31 Completed [facility] 00:00:00 [facility] TDAP 2015-10-31 Completed [facility] 00:00:00 [facility] TDAP 2015-10-31 Completed [facility] 00:00:00 [facility] TDAP 2015-10-31 Completed [facility] 00:00:00 [facility] TDAP 2015-10-31 Completed [facility] 00:00:00 [facility] TDAP 2015-10-31 Completed [facility] 00:00:00 [facility] TDAP 2015-10-31 Completed [facility] 00:00:00 [facility] TDAP 2015-10-31 Completed [facility] 00:00:00 [facility] TDAP 2015-10-31 Completed [facility] 00:00:00 [facility] TDAP 2015-10-31 Completed [facility] 00:00:00 [facility] TDAP 2015-10-31 Completed [facility] 00:00:00 [facility] TDAP 2015-10-31 Completed [facility] 00:00:00 [facility] TDAP 2015-10-31 Completed [facility] 00:00:00 [facility] TDAP 2015-10-31 Completed [facility] 00:00:00 [facility] TDAP 2015-10-31 Completed [facility] 00:00:00 [facility] TDAP 2015-10-31 Completed [facility] 00:00:00 [facility] TDAP 2015-10-31 Completed [facility] 00:00:00 [facility] TDAP 2015-10-31 Completed [facility] 00:00:00 [facility] TDAP 2015-10-31 Completed [facility] 00:00:00 [facility] TDAP 2015-10-31 Completed [facility] 00:00:00 [facility] TDAP 2015-10-31 Completed [facility] 00:00:00 [facility] TDAP 2015-10-31 Completed [facility] 00:00:00 [facility] TDAP 2015-10-31 Completed [facility] 00:00:00 [facility] TDAP 2015-10-31 Completed [facility] 00:00:00 [facility] TDAP 2015-10-31 Completed [facility] 00:00:00 [facility] TDAP 2015-10-31 Completed [facility] 00:00:00 [facility] TDAP 2015-10-31 Completed [facility] 00:00:00 [facility] TDAP 2015-10-31 Completed [facility] 00:00:00 [facility] TDAP 2015-10-31 Completed [facility] 00:00:00 [facility] TDAP 2015-10-31 Completed [facility] 00:00:00 [facility] TDAP 2015-10-31 Completed [facility] 00:00:00 [facility] TDAP 2015-10-31 Completed [facility] 00:00:00 [facility] TDAP 2015-10-31 Completed [facility] 00:00:00 [facility] TDAP 2015-10-31 Completed [facility] 00:00:00 [facility] TDAP 2015-10-31 Completed [facility] 00:00:00 [facility] TDAP 2015-10-31 Completed [facility] 00:00:00 [facility] TDAP 2015-10-31 Completed [facility] 00:00:00 [facility] TDAP 2015-10-31 Completed [facility] 00:00:00 [facility] TDAP 2015-10-31 Completed [facility] 00:00:00 [facility] TDAP 2015-10-31 Completed [facility] 00:00:00 [facility] TDAP 2015-10-31 Completed [facility] 00:00:00 [facility] TDAP 2015-10-31 Completed [facility] 00:00:00 [facility] TDAP 2015-10-31 Completed [facility] 00:00:00 [facility] TDAP 2015-10-31 Completed [facility] 00:00:00 [facility] TDAP 2015-10-31 Completed [facility] 00:00:00 [facility] TDAP 2015-10-31 Completed [facility] 00:00:00 [facility] TDAP 2015-10-31 Completed [facility] 00:00:00 [facility] TDAP 2015-10-31 Completed [facility] 00:00:00 [facility] TDAP 2015-10-31 Completed [facility] 00:00:00 [facility] TDAP 2015-10-31 Completed [facility] 00:00:00 [facility] TDAP 2015-10-31 Completed [facility] 00:00:00 [facility] TDAP 2015-10-31 Completed [facility] 00:00:00 [facility] TDAP 2015-10-31 Completed [facility] 00:00:00 [facility] TDAP 2015-10-31 Completed [facility] 00:00:00 [facility] TDAP 2015-10-31 Completed [facility] 00:00:00 [facility] TDAP 2015-10-31 Completed [facility] 00:00:00 [facility] TDAP 2015-10-31 Completed [facility] 00:00:00 [facility] TDAP 2015-10-31 Completed [facility] 00:00:00 [facility] TDAP 2015-10-31 Completed [facility] 00:00:00 [facility] TDAP 2015-10-31 Completed [facility] 00:00:00 [facility] TDAP 2015-10-31 Completed [facility] 00:00:00 [facility] TDAP 2015-10-31 Completed [facility] 00:00:00 [facility] TDAP 2015-10-31 Completed [facility] 00:00:00 [facility] TDAP 2015-10-31 Completed [facility] 00:00:00 [facility] TDAP 2015-10-31 Completed [facility] 00:00:00 [facility] TDAP 2015-10-31 Completed [facility] 00:00:00 [facility] TDAP 2015-10-31 Completed [facility] 00:00:00 [facility] TDAP 2015-10-31 Completed [facility] 00:00:00 [facility] TDAP 2015-10-31 Completed [facility] 00:00:00 [facility] TDAP 2015-10-31 Completed [facility] 00:00:00 [facility] TDAP 2015-10-31 Completed [facility] 00:00:00 [facility] TDAP 2015-10-31 Completed [facility] 00:00:00 [facility] TDAP 2015-10-31 Completed [facility] 00:00:00 [facility] TDAP 2015-10-31 Completed [facility] 00:00:00 [facility] TDAP 2015-10-31 Completed [facility] 00:00:00 [facility] TDAP 2015-10-31 Completed [facility] 00:00:00 [facility] TDAP 2015-10-31 Completed [facility] 00:00:00 [facility] TDAP 2015-10-31 Completed [facility] 00:00:00 [facility] TDAP 2015-10-31 Completed [facility] 00:00:00 [facility] TDAP 2015-10-31 Completed [facility] 00:00:00 [facility] TDAP 2015-10-31 Completed [facility] 00:00:00 [facility] TDAP 2015-10-31 Completed [facility] 00:00:00 [facility] TDAP 2015-10-31 Completed [facility] 00:00:00 [facility] Pneumococcal 2014-04-01 Completed [facility] o f Polysaccharide, 00:00:00 [place] [facility] PPSV23 (PNEUMOVAX) [place] Pneumococcal 2014-04-01 Completed [facility] o f Polysaccharide, 00:00:00 [place] [facility] PPSV23 (PNEUMOVAX) Branch Pneumococcal 2014-04-01 [...] 2013-04-29 Completed University o f Polysaccharide, 00:00:00 [facility] ical PPSV23 (PNEUMOVAX) Branch Pneumococcal Unknown Completed University o f Polysaccharide, [facility] ical PPSV23 (PNEUMOVAX) Branch TDAP [facility] Meningococcal Unknown Completed [facility] Polysaccharide [facility] cipriano (groups A, C, Y and Branc h W-135) conjugate vaccine (MCV4P) Heamophilus Unknown Completed [facility] of Influenza B [facility] Pneumococcal 13 Unknown Completed Universit y of Conjugate, PCV13 [facility] dical (Prevnar 13) Branch Meningococcal B, OMV Unknown Completed [facility] Influenza Virus Unknown Completed Universit y of Vaccine Quad IM [facility] Multi-dose 6+ MO Branch Influenza Virus Unknown Completed Universit y of Vaccine Quad ID [facility] ica 18-64 YRS Branch Influenza Virus Unknown Completed Universit y of Vaccine Quad IM 3+ [facility] Y[facility] Influenza Virus Unknown Completed Universit y of Vaccine [facility] Pneumococcal Unknown Completed University o f Polysaccharide, [facility] PPSV23 (PNEUMOVAX) Branch Influenza Virus Unknown Completed Universit y of Vaccine Recomb Quad [facility] IM, Preserv and ABX Branc h Free 18-64 YRS TDAP (ADACEL) Unknown Completed [facility] of VACCINE [facility] TDAP Unknown Completed [facility] Influenza Virus Unknown Completed Universit y of Vaccine Recomb Quad [facility] IM, Preserv and ABX Branc h Free 18-64 YRS SARS-COV-2 COVID-19 Unknown Completed Unive rsity of PFIZER VACCINE [facility] cipriano Branch SARS-COV-2 COVID-19 Unknown Completed Unive rsity of PFIZER VACCINE [facility] Branch Influenza Virus Unknown Completed Universit y of Vaccine (3+ yrs) [facility] dical Branch SARS-COV-2 COVID-19 Unknown Completed Unive rsity of PFIZER VACCINE [facility] Twinrix (hep a/hep Unknown Completed Univer sity of b) [facility] Twinrix (hep a/hep Unknown Completed Univer sity of b) [facility] SARS-COV-2 COVID-19 Unknown Completed Unive rsity of CHRISTELLE-SUCROSE VACCINE [facility] 12 YRS+, BIVALENT Branch 0.3ML, IM, (PFIZER FOUNTAIN TOP) Pneumococcal Unknown Completed University o f Polysaccharide, [facility] PPSV23 (PNEUMOVAX) Branch Influenza Virus Unknown Completed Universit y of Vaccine Quad .5 mL [facility] 6+ MO Branch (FLUZONE/FLULAVAL/FL UARIX) Pneumococcal Unknown Completed University o f Polysaccharide, [facility] PPSV23 (PNEUMOVAX) Branch TDAP Unknown [facility]pleted [facility] Meningococcal Unknown Completed [facility] Polysaccharide [facility] (groups A, C, Y and Branc h W-135) conjugate vaccine (MCV4P) Heamophilus Unknown Completed [facility] Influenza B [facility] Pneumococcal 13 Unknown Completed Universit y of Conjugate, PCV13 [facility] dical (Prevnar 13) Branch Meningococcal B, OMV Unknown Completed Univ ersity [facility] Influenza Virus Unknown Completed Universit y of Vaccine Quad IM [facility] Multi-dose 6+ MO Branch Influenza Virus Unknown Completed Universit y of Vaccine Quad ID [facility] ical 18-64 YRS Branch Influenza Virus Unknown Completed Univers[facility] y of Vaccine Quad IM 3+ [facility] Influenza Virus Unknown Completed Universit y of Vaccine [facility] Pneumococcal Unknown Completed University o f Polysaccharide, [facility] ical PPSV23 (PNEUMOVAX) Branch Influenza Virus Unknown Completed Universit y of Vaccine Recomb Quad [facility], Preserv and ABX Branc h Free 18-64 YRS TDAP (ADACEL) Unknown Completed [facility] of VACCINE [facility] TDAP Unknown Completed University [facility] Influenza Virus Unknown Completed Universit y of Vaccine Recomb Quad [facility] IM, Preserv and ABX Branc h Free 18-64 YRS SARS-COV-2 COVID-19 Unknown Completed Unive rsity of PFIZER VACCINE [facility] Branch SARS-COV-2 COVID-19 Unknown Completed Unive rsity of PFIZER VACCINE [facility] Branch Influenza Virus Unknown Completed Universit y of Vaccine (3+ yrs) [facility] dical Branch SARS-COV-2 COVID-19 Unknown Completed Unive rsity of PFIZER VACCINE [facility] Twinrix (hep a/hep Unknown Completed Univer sity of b) [facility] Twinrix (hep a/hep Unknown Completed Univer sity of b) [facility] SARS-COV-2 COVID-19 Unknown Completed Unive rsity of CHRISTELLE-SUCROSE VACCINE [facility] 12 YRS+, BIVALENT Branch 0.3ML, IM, (PFIZER FOUNTAIN TOP) Pneumococcal Unknown Completed University o f Polysaccharide, [facility] ica PPSV23 (PNEUMOVAX) Branch Influenza Virus Unknown Completed Universit y of Vaccine Quad .5 mL [facility] 6+ MO Branch (FLUZONE/FLULAVAL/FL UARIX) Pneumococcal Unknown Completed University o f Polysaccharide, [facility] ical PPSV23 (PNEUMOVAX) Branch TDAP Unknown [facility] Meningococcal Unknown Completed [facility] Polysaccharide [facility] (groups A, C, Y and Branc h W-135) conjugate vaccine (MCV4P) Heamophilus Unknown Completed [facility] Influenza B [facility] Pneumococcal 13 Unknown Completed Universit y of Conjugate, PCV13 [facility] dicsc (Prevnar 13) Branch Meningococcal B, OMV Unknown Completed Univ ersity of [facility] Influenza Virus Unknown Completed Universit y of Vaccine Quad IM [facility] ical Multi-dose 6+ MO Branch Influenza Virus Unknown Completed [facility] of Vaccine Quad ID [place] [facility] 18-64 Y[facility] Branch Influenza Virus Unknown Completed Universit y of Vaccine Quad IM 3+ [facility] YRS Branch Influenza Virus Unknown Completed Universit y of Vaccine [facility] Pneumococcal Unknown Completed University o f Polysaccharide, [facility] PPSV23 (PNEUMOVAX) Branch Influenza Virus Unknown Completed Universit y of Vaccine Recomb Quad [facility], Preserv and ABX Branc h Free 18-64 YRS TDAP (ADACEL) Unknown Completed University [facility] VACCINE [facility] TDAP Unknown Completed University [facility] Influenza Virus Unknown Completed Universit y of Vaccine Recomb Quad [facility] IM, Preserv and ABX Branc h Free 18-64 YRS SARS-COV-2 COVID-19 Unknown Completed Unive rsity of PFIZER VACCINE [facility] Branch SARS-COV-2 COVID-19 Unknown Completed Unive rsity of PFIZER VACCINE [facility] Branch Influenza Virus Unknown Completed Universit y of Vaccine (3+ yrs) [facility] dical Branch SARS-COV-2 COVID-19 Unknown Completed Unive rsity of PFIZER VACCINE [facility] Twinrix (hep a/hep Unknown Completed Univer sity of b) [facility] Twinrix (hep a/hep Unknown Completed Univer sity of b) [facility] SARS-COV-2 COVID-19 Unknown Completed Unive rsity of CHRISTELLE-SUCROSE VACCINE [facility] 12 YRS+, BIVALENT Branch 0.3ML, IM, (PFIZER FOUNTAIN TOP) Pneumococcal Unknown Completed University o f Polysaccharide, [facility] PPSV23 (PNEUMOVAX) Branch Influenza Virus Unknown Completed Universit y of Vaccine Quad .5 mL [facility] 6+ MO Branch (FLUZONE/FLULAVAL/FL UARIX) Pneumococcal Unknown Completed University o f Polysaccharide, [facility] PPSV23 (PNEUMOVAX) Branch TDAP Unknown [facility] Meningococcal Unknown Completed [facility] Polysaccharide [facility] (groups A, C, Y and Branc h W-135) conjugate vaccine (MCV4P) Heamophilus Unknown Completed University of Influenza B [facility] Pneumococcal 13 Unknown Completed Universit y of Conjugate, PCV13 [facility] dical (Prevnar 13) Branch Meningococcal B, OMV Unknown Completed Univ ersity [facility] Influenza Virus Unknown Completed Universit y of Vaccine Quad IM [facility] Multi-dose 6+ MO Branch Influenza Virus Unknown Completed [facility] of Vaccine Quad ID [place] [facility] 18-64 Y[facility] Branch Influenza Virus Unknown Completed [facility] y of Vaccine Quad IM 3+ [facility] Influenza Virus Unknown Completed Universit y of Vaccine [facility] Branch Pneumococcal Unknown Completed University o f Polysaccharide, [facility] ica PPSV23 (PNEUMOVAX) Branch Influenza Virus Unknown Completed Universit y of Vaccine Recomb Quad [facility] IM, Preserv and ABX Branc h Free 18-64 YRS TDAP (ADACEL) Unknown Completed University of VACCINE [facility] TDAP Unknown Completed University [facility] Influenza Virus Unknown Completed Universit y of Vaccine Recomb Quad [facility] IM, Preserv and ABX Branc h Free 18-64 YRS SARS-COV-2 COVID-19 Unknown Completed Unive rsity of PFIZER VACCINE [facility] Branch SARS-COV-2 COVID-19 Unknown Completed Unive rsity of PFIZER VACCINE [facility] Branch Influenza Virus Unknown Completed Universit y of Vaccine (3+ yrs) [facility] dical Branch SARS-COV-2 COVID-19 Unknown Completed Unive rsity of PFIZER VACCINE [facility] Branch Twinrix (hep a/hep Unknown Completed Univer sity of b) [facility] Twinrix (hep a/hep Unknown Completed Univer sity of b) [facility] SARS-COV-2 COVID-19 Unknown Completed Unive rsity of CHRISTELLE-SUCROSE VACCINE [facility] 12 YRS+, BIVALENT Branch 0.3ML, IM, (PFIZER FOUNTAIN TOP) Pneumococcal Unknown Completed University o f Polysaccharide, [facility] PPSV23 (PNEUMOVAX) Branch Influenza Virus Unknown Completed Universit y of Vaccine Quad .5 mL [facility] 6+ MO Branch (FLUZONE/FLULAVAL/FL UARIX) Pneumococcal Unknown Completed University o f Polysaccharide, [facility] ical PPSV23 (PNEUMOVAX) Branch TDAP Unknown [facility] Meningococcal Unknown Completed [facility] Polysaccharide [facility] (groups A, C, Y and Branc h W-135) conjugate vaccine (MCV4P) Heamophilus Unknown Completed [facility] Influenza B [facility] Pneumococcal 13 Unknown Completed Universit y of Conjugate, PCV13 [facility] dicsc (Prevnar 13) Branch Meningococcal B, OMV Unknown Completed Univ ersity [facility] Influenza Virus Unknown Completed Universit y of Vaccine Quad IM [facility] ical Multi-dose 6+ MO Branch Influenza Virus Unknown Completed Universit y of Vaccine Quad ID [facility] ical 18-64 YRS Branch Influenza Virus Unknown Completed [facility] y of Vaccine Quad IM 3+ [facility] Influenza Virus Unknown Completed Universit y of Vaccine [facility] Branch Pneumococcal Unknown Completed University o f Polysaccharide, [facility] PPSV23 (PNEUMOVAX) Branch Influenza Virus Unknown Completed Universit y of Vaccine Recomb Quad [facility] IM, Preserv and ABX Branc h Free 18-64 YRS TDAP (ADACEL) Unknown Completed University of VACCINE [facility] TDAP Unknown Completed University [facility] Influenza Virus Unknown Completed Universit y of Vaccine Recomb Quad [facility] IM, Preserv and ABX Branc h Free 18-64 YRS SARS-COV-2 COVID-19 Unknown Completed Unive rsity of PFIZER VACCINE [facility] Branch SARS-COV-2 COVID-19 Unknown Completed Unive rsity of PFIZER VACCINE [facility] Branch Influenza Virus Unknown Completed Universit y of Vaccine (3+ yrs) [facility] dical Branch SARS-COV-2 COVID-19 Unknown Completed Unive rsity of PFIZER VACCINE [facility] Twinrix (hep a/hep Unknown Completed Univer sity of b) [facility] Twinrix (hep a/hep Unknown Completed Univer sity of b) [facility] SARS-COV-2 COVID-19 Unknown Completed Unive rsity of CHRISTELLE-SUCROSE VACCINE [facility] 12 YRS+, BIVALENT Branch 0.3ML, IM, (PFIZER FOUNTAIN TOP) Pneumococcal Unknown Completed University o f Polysaccharide, [facility] PPSV23 (PNEUMOVAX) Branch Influenza Virus Unknown Completed Universit y of Vaccine Quad .5 mL [facility] 6+ MO Branch (FLUZONE/FLULAVAL/FL UARIX) Pneumococcal Unknown Completed University o f Polysaccharide, [facility] ical PPSV23 (PNEUMOVAX) Branch TDAP Unknown [facility] Meningococcal Unknown Completed [facility] Polysaccharide [facility] (groups A, C, Y and Branc h W-135) conjugate vaccine (MCV4P) Heamophilus Unknown Completed University of Influenza B [facility] Pneumococcal 13 Unknown Completed Universit y of Conjugate, PCV13 [facility] dicsc (Prevnar 13) Branch Meningococcal B, OMV Unknown Completed Univ ersity [facility] Influenza Virus Unknown Completed Universit y of Vaccine Quad IM [facility] ica Multi-dose 6+ MO Branch Influenza Virus Unknown Completed Universit y of Vaccine Quad ID [facility] ical 18-64 YRS Branch Influenza Virus Unknown Completed Universit y of Vaccine Quad IM 3+ [facility] YRS Branch Influenza Virus Unknown Completed Universit y of Vaccine [facility] Branch Pneumococcal Unknown Completed University o f Polysaccharide, [facility] PPSV23 (PNEUMOVAX) Branch Influenza Virus Unknown Completed Universit y of Vaccine Recomb Quad [facility] IM, Preserv and ABX Branc h Free 18-64 YRS TDAP (ADACEL) Unknown Completed University of VACCINE [facility] TDAP Unknown Completed University of [facility] Influenza Virus Unknown Completed Universit y of Vaccine Recomb Quad [facility] IM, Preserv and ABX Branc h Free 18-64 YRS SARS-COV-2 COVID-19 Unknown Completed Unive rsity of PFIZER VACCINE [facility] Branch SARS-COV-2 COVID-19 Unknown Completed Unive rsity of PFIZER VACCINE [facility] Branch Influenza Virus Unknown Completed Universit y of Vaccine (3+ yrs) [facility] dical Branch SARS-COV-2 COVID-19 Unknown Completed Unive rsity of PFIZER VACCINE [facility] Branch Twinrix (hep a/hep Unknown Completed Univer sity of b) [facility] Twinrix (hep a/hep Unknown Completed Univer sity of b) [facility] SARS-COV-2 COVID-19 Unknown Completed Unive rsity of CHRISTELLE-SUCROSE VACCINE [facility] 12 YRS+, BIVALENT Branch 0.3ML, IM, (PFIZER [place] TOP) Pneumococcal Unknown Completed University o f Polysaccharide, [facility] PPSV23 (PNEUMOVAX) Branch Influenza Virus Unknown Completed Universit y of Vaccine Quad .5 mL [facility] 6+ MO Branch (FLUZONE/FLULAVAL/FL UARIX) Pneumococcal Unknown Completed University o f Polysaccharide, [facility] ical PPSV23 (PNEUMOVAX) Branch TDAP Unknown Completed University [facility] Meningococcal Unknown Completed University of Polysaccharide [facility] (groups A, C, Y and Branc h W-135) conjugate vaccine (MCV4P) Heamophilus Unknown Completed University of Influenza B [facility] Pneumococcal 13 Unknown Completed Universit y of Conjugate, PCV13 [facility] dicsc (Prevnar 13) Branch Meningococcal B, OMV Unknown Completed Univ ersity of [facility] Influenza Virus Unknown Completed Universit y of Vaccine Quad IM [facility] ical Multi-dose 6+ MO Branch Influenza Virus Unknown Completed [facility]it y of Vaccine Quad ID [facility] 18-64 YRS Branch Influenza Virus Unknown Completed [facility] Vaccine Quad IM 3+ [facility] Influenza Virus Unknown Completed Universit y of Vaccine [facility] Pneumococcal Unknown Completed University o f Polysaccharide, [facility] PPSV23 (PNEUMOVAX) Branch Influenza Virus Unknown Completed Universit y of Vaccine Recomb Quad [facility], Preserv and ABX Branc h Free 18-64 YRS TDAP (ADACEL) Unknown Completed University of VACCINE [facility] TDAP Unknown Completed University [facility] Influenza Virus Unknown Completed Universit y of Vaccine Recomb Quad [facility], Preserv and ABX Branc h Free 18-64 YRS SARS-COV-2 COVID-19 Unknown Completed Unive rsity of PFIZER VACCINE [facility] SARS-COV-2 COVID-19 Unknown Completed Unive rsity of PFIZER VACCINE [facility] Branch Influenza Virus Unknown Completed Universit y of Vaccine (3+ yrs) [facility] dical Branch SARS-COV-2 COVID-19 Unknown Completed Unive rsity of PFIZER VACCINE [facility] Twinrix (hep a/hep Unknown Completed Univer sity of b) [facility] Twinrix (hep a/hep Unknown Completed Univer sity of b) [facility] Pneumococcal Unknown Completed University o f Polysaccharide, [facility] PPSV23 (PNEUMOVAX) Branch Influenza Virus Unknown Completed Universit y of Vaccine Quad .5 mL [facility] 6+ MO Branch (FLUZONE/FLULAVAL/FL UARIX) Pneumococcal Unknown Completed University o f Polysaccharide, [facility] PPSV23 (PNEUMOVAX) Branch TDAP Unknown [facility]pleted [facility] Meningococcal Unknown Completed University of Polysaccharide [facility] (groups A, C, Y and Branc h W-135) conjugate vaccine (MCV4P) Heamophilus Unknown Completed University of Influenza B [facility] Pneumococcal 13 Unknown Completed Universit y of Conjugate, PCV13 [facility] dicsc (Prevnar 13) Branch Meningococcal B, OMV Unknown Completed Univ ersity [facility] Influenza Virus Unknown Completed Universit y of Vaccine Quad IM [facility] Multi-dose 6+ MO Branch Influenza Virus Unknown Completed Universit y of Vaccine Quad ID [facility] 18-64 YRS Branch Influenza Virus Unknown Completed [facility] Vaccine Quad IM 3+ [facility] Influenza Virus Unknown Completed Universit y of Vaccine [facility] Pneumococcal Unknown Completed University o f Polysaccharide, [facility] ical PPSV23 (PNEUMOVAX) Branch Influenza Virus Unknown Completed Universit y of Vaccine Recomb Quad [facility] IM, Preserv and ABX Branc h Free 18-64 YRS TDAP (ADACEL) Unknown Completed University [facility] TDAP Unknown Completed [facility] Influenza Virus Unknown Completed [facility]it y of Vaccine Recomb Quad [facility] IM, Preserv and ABX Branc h Free 18-64 YRS SARS-COV-2 COVID-19 Unknown Completed Unive rsity of PFIZER VACCINE [facility] cipriano Branch SARS-COV-2 COVID-19 Unknown Completed Unive rsity of PFIZER VACCINE [facility] Branch Influenza Virus Unknown Completed Universit y of Vaccine (3+ yrs) [facility] dical Branch SARS-COV-2 COVID-19 Unknown Completed Unive rsity of PFIZER VACCINE [facility] Twinrix (hep a/hep Unknown Completed Univer sity of b) [facility] Twinrix (hep a/hep Unknown Completed Univer sity of b) [facility] Pneumococcal Unknown Completed University o f Polysaccharide, [facility] ical PPSV23 (PNEUMOVAX) Branch Pneumococcal Unknown Completed University o f Polysaccharide, [facility] ical PPSV23 (PNEUMOVAX) Branch TDAP Unknown Completed [facility] Meningococcal Unknown Completed University of Polysaccharide [facility] (groups A, C, Y and Branc h W-135) conjugate vaccine (MCV4P) Heamophilus Unknown Completed [facility] Influenza B [facility] Pneumococcal 13 Unknown Completed Universit y of Conjugate, PCV13 [facility] (Prevnar 13) Branch Meningococcal B, OMV Unknown [facility] Completed [facility]it y of Vaccine Quad IM [facility] ical Multi-dose 6+ MO Branch Influenza Virus Unknown Completed [facility] Vaccine Quad ID [facility] ical 18-64 YRS Branch Influenza Virus Unknown Completed [facility] Vaccine Quad IM 3+ [facility] Influenza Virus Unknown Completed Universit y of Vaccine [facility] Pneumococcal Unknown Completed University o f Polysaccharide, [facility] ical PPSV23 (PNEUMOVAX) Branch Influenza Virus Unknown Completed Universit y of Vaccine Recomb Quad [facility] IM, Preserv and ABX Branc h Free 18-64 YRS TDAP (ADACEL) Unknown Completed University VACCINE [facility] TDAP Unknown Completed [facility] Influenza Virus Unknown Completed Universit y of Vaccine Recomb Quad [facility] IM, Preserv and ABX Branc h Free 18-64 YRS SARS-COV-2 COVID-19 Unknown Completed Unive rsity of PFIZER VACCINE [facility] SARS-COV-2 COVID-19 Unknown Completed Unive rsity of PFIZER VACCINE [facility] Influenza Virus Unknown Completed Universit y of Vaccine (3+ yrs) [facility] dical Branch SARS-COV-2 COVID-19 Unknown Completed Unive rsity of PFIZER VACCINE [facility] Twinrix (hep a/hep Unknown Completed Univer sity of b) [facility] Twinrix (hep a/hep Unknown Completed Univer sity of b) [facility] Pneumococcal Unknown Completed University o f Polysaccharide, [facility] ica PPSV23 (PNEUMOVAX) Branch Pneumococcal Unknown Completed University o f Polysaccharide, [facility] ica PPSV23 (PNEUMOVAX) Branch TDAP Unknown Completed [facility] Meningococcal Unknown Completed University of Polysaccharide [facility] (groups A, C, Y and Branc h W-135) conjugate vaccine (MCV4P) Heamophilus Unknown Completed University of Influenza B [facility] Pneumococcal 13 Unknown Completed Universit y of Conjugate, PCV13 [facility] (Prevnar 13) Branch Meningococcal B, OMV Unknown [facility] Virus [facility] Completed [facility] y of Vaccine Quad IM [facility] Multi-dose 6+ MO Branch Influenza Virus Unknown Completed Universit y of Vaccine Quad ID [facility] 18-64 YRS Branch Influenza Virus Unknown Completed [facility]it y of Vaccine Quad IM 3+ [facility] Y[facility] Branch Influenza Virus Unknown Completed Universit y of Vaccine [facility] Pneumococcal Unknown Completed University o f Polysaccharide, [facility] PPSV23 (PNEUMOVAX) Branch Influenza Virus Unknown Completed Universit y of Vaccine Recomb Quad [facility] IM, Preserv and ABX Branc h Free 18-64 YRS TDAP (ADACEL) Unknown Completed University [facility] TDAP Unknown Completed [facility] Influenza Virus Unknown Completed Universit y of Vaccine Recomb Quad [facility] IM, Preserv and ABX Branc h Free 18-64 YRS SARS-COV-2 COVID-19 Unknown Completed Unive rsity of PFIZER VACCINE [facility] SARS-COV-2 COVID-19 Unknown Completed Unive rsity of PFIZER VACCINE [facility] Influenza Virus Unknown Completed Universit y of Vaccine (3+ yrs) [facility] dical Branch SARS-COV-2 COVID-19 Unknown Completed Unive rsity of PFIZER VACCINE [facility] Twinrix (hep a/hep Unknown Completed Univer sity of b) [facility] Twinrix (hep a/hep Unknown Completed Univer sity of b) [facility] Pneumococcal Unknown Completed University o f Polysaccharide, [facility] ical PPSV23 (PNEUMOVAX) Branch Pneumococcal Unknown Completed University o f Polysaccharide, [facility] ical PPSV23 (PNEUMOVAX) Branch TDAP Unknown Completed [facility] Meningococcal Unknown Completed University of Polysaccharide [facility] (groups A, C, Y and Branc h W-135) conjugate vaccine (MCV4P) Heamophilus Unknown Completed [facility] Influenza B [facility] Pneumococcal 13 Unknown Completed Universit y of Conjugate, PCV13 [facility] (Prevnar 13) [place] Meningococcal B, OMV Unknown [facility] Virus Unknown Completed Universit y of Vaccine Quad IM [facility] ical Multi-dose 6+ MO Branch Influenza Virus Unknown Completed Universit y of Vaccine Quad ID [facility] ical 18-64 YRS Branch Influenza Virus Unknown Completed Universit y of Vaccine Quad IM 3+ [facility] YRS Branch Influenza Virus Unknown Completed Universit y of Vaccine [facility] Pneumococcal Unknown Completed University o f Polysaccharide, [facility] ical PPSV23 (PNEUMOVAX) Branch Influenza Virus Unknown Completed Universit y of Vaccine Recomb Quad [facility] IM, Preserv and ABX Branc h Free 18-64 YRS TDAP (ADACEL) Unknown Completed University of VACCINE [facility] TDAP Unknown Completed [facility] Influenza Virus Unknown Completed Universit y of Vaccine Recomb Quad [facility] IM, Preserv and ABX Branc h Free 18-64 YRS SARS-COV-2 COVID-19 Unknown Completed Unive rsity of PFIZER VACCINE [facility] SARS-COV-2 COVID-19 Unknown Completed Unive rsity of PFIZER VACCINE [facility] Branch Influenza Virus Unknown Completed Universit y of Vaccine (3+ yrs) [facility] dical [place] SARS-COV-2 COVID-19 Unknown Completed Unive rsity of PFIZER VACCINE [facility] Twinrix (hep a/hep Unknown Completed Univer sity of b) [facility] Pneumococcal Unknown Completed University o f Polysaccharide, [facility] ical PPSV23 (PNEUMOVAX) Branch Pneumococcal Unknown Completed University o f Polysaccharide, [facility] ica PPSV23 (PNEUMOVAX) Branch TDAP Unknown Completed [facility] Meningococcal Unknown Completed University of Polysaccharide [facility] (groups A, C, Y and Branc h W-135) conjugate vaccine (MCV4P) Heamophilus Unknown Completed University of Influenza B [facility] Pneumococcal 13 Unknown Completed Universit y of Conjugate, PCV13 [facility] dicsc (Prevnar 13) Branch Meningococcal B, OMV Unknown Completed Univ ers[facility] Influenza Virus Unknown Completed Universit y of Vaccine Quad IM [facility] Multi-dose 6+ MO Branch Influenza Virus Unknown Completed Universit y of Vaccine Quad ID [facility] ical 18-64 YRS Branch Influenza Virus Unknown Completed Universit y of Vaccine Quad IM 3+ [facility] YRS Branch Influenza Virus Unknown Completed Universit y of Vaccine [facility] Pneumococcal Unknown Completed University o f Polysaccharide, [facility] PPSV23 (PNEUMOVAX) Branch Influenza Virus Unknown Completed Universit y of Vaccine Recomb Quad [facility] IM, Preserv and ABX Branc h Free 18-64 YRS TDAP (ADACEL) Unknown Completed University of VACCINE [facility] TDAP Unknown Completed [facility] Influenza Virus Unknown Completed Universit y of Vaccine Recomb Quad [facility] IM, Preserv and ABX Branc h Free 18-64 YRS SARS-COV-2 COVID-19 Unknown Completed Unive rsity of PFIZER VACCINE [facility] SARS-COV-2 COVID-19 Unknown Completed Unive rsity of PFIZER VACCINE [facility] Influenza Virus Unknown Completed Universit y of Vaccine (3+ yrs) [facility] dical Branch SARS-COV-2 COVID-19 Unknown Completed Unive rsity of PFIZER VACCINE [facility] Branch Twinrix (hep a/hep Unknown Completed Univer sity of b) [facility] Pneumococcal Unknown Completed University o f Polysaccharide, [facility] ica PPSV23 (PNEUMOVAX) Branch Pneumococcal Unknown Completed University o f Polysaccharide, [facility] PPSV23 (PNEUMOVAX) Branch TDAP Unknown Completed [facility] Meningococcal Unknown Completed University of Polysaccharide [facility] (groups A, C, Y and Branc h W-135) conjugate vaccine (MCV4P) Heamophilus Unknown Completed University of Influenza B [facility] Pneumococcal 13 Unknown Completed Universit y of Conjugate, PCV13 [facility] dical (Prevnar 13) Branch Meningococcal B, OMV Unknown [facility] Influ[facility] Virus Unknown Completed Universit y of Vaccine Quad IM [facility] ical Multi-dose 6+ MO Branch Influenza Virus Unknown Completed Universit y of Vaccine Quad ID [facility] ical 18-64 YRS Branch Influenza Virus Unknown Completed [facility] y of Vaccine Quad IM 3+ [facility] Y[facility] Influenza Virus Unknown Completed Universit y of Vaccine [facility] Branch Pneumococcal Unknown Completed University o f Polysaccharide, [facility] ical PPSV23 (PNEUMOVAX) Branch Influenza Virus Unknown Completed Universit y of Vaccine Recomb Quad [facility] IM, Preserv and ABX Branc h Free 18-64 YRS TDAP (ADACEL) Unknown Completed University of VACCINE [facility] TDAP Unknown Completed [facility] Influenza Virus Unknown Completed Universit y of Vaccine Recomb Quad [facility] IM, Preserv and ABX Branc h Free 18-64 YRS SARS-COV-2 COVID-19 Unknown Completed Unive rsity of PFIZER VACCINE [facility] Branch SARS-COV-2 COVID-19 Unknown Completed Unive rsity of PFIZER VACCINE [facility] Branch Influenza Virus Unknown Completed Universit y of Vaccine (3+ yrs) [facility] dical Branch SARS-COV-2 COVID-19 Unknown Completed Unive rsity of PFIZER VACCINE [facility] Branch Pneumococcal Unknown Completed University o f Polysaccharide, [facility] ical PPSV23 (PNEUMOVAX) Branch Pneumococcal Unknown Completed University o f Polysaccharide, [facility] ical PPSV23 (PNEUMOVAX) Branch TDAP Unknown Completed [facility] Meningococcal Unknown Completed University of Polysaccharide [facility] (groups A, C, Y and Branc h W-135) conjugate vaccine (MCV4P) Heamophilus Unknown Completed University of Influenza B [facility] Pneumococcal 13 Unknown Completed Universit y of Conjugate, PCV13 [facility] dicsc (Prevnar 13) Branch Meningococcal B, OMV Unknown [facility] Influ[facility] Virus Unknown Completed Universit y of Vaccine Quad IM [facility] ical Multi-dose 6+ MO Branch Influenza Virus Unknown Completed Universit y of Vaccine Quad ID [facility] ical 18-64 YRS Branch Influenza Virus Unknown Completed Universit y of Vaccine Quad IM 3+ [facility] YRS Branch Influenza Virus Unknown Completed Universit y of Vaccine [facility] Branch Pneumococcal Unknown Completed University o f Polysaccharide, [facility] ical PPSV23 (PNEUMOVAX) Branch Influenza Virus Unknown Completed Universit y of Vaccine Recomb Quad [facility] IM, Preserv and ABX Branc h Free 18-64 YRS TDAP (ADACEL) Unknown Completed University [facility] TDAP Unknown Completed [facility] Influenza Virus Unknown Completed Universit y of Vaccine Recomb Quad [facility] IM, Preserv and ABX Branc h Free 18-64 YRS SARS-COV-2 COVID-19 Unknown Completed Unive rsity of PFIZER VACCINE [facility] Branch SARS-COV-2 COVID-19 Unknown Completed Unive rsity of PFIZER VACCINE [facility] Branch Influenza Virus Unknown Completed Universit y of Vaccine (3+ yrs) [facility] dical Branch SARS-COV-2 COVID-19 Unknown Completed Unive rsity of PFIZER VACCINE [facility] Branch Pneumococcal Unknown Completed University o f Polysaccharide, [facility] ica PPSV23 (PNEUMOVAX) Branch Pneumococcal Unknown Completed University o f Polysaccharide, [facility] ica PPSV23 (PNEUMOVAX) Branch TDAP Unknown Completed [facility] Meningococcal Unknown Completed University of Polysaccharide [facility] (groups A, C, Y and Branc h W-135) conjugate vaccine (MCV4P) Heamophilus Unknown Completed [facility] Influenza B [facility] Pneumococcal 13 Unknown Completed Universit y of Conjugate, PCV13 [facility] (Prevnar 13) Branch Meningococcal B, OMV Unknown [facility] Influ[facility] Virus Unknown Completed Universit y of Vaccine Quad IM [facility] ica Multi-dose 6+ MO Branch Influenza Virus Unknown Completed Universit y of Vaccine Quad ID [facility] ical 18-64 YRS Branch Influenza Virus Unknown Completed Universit y of Vaccine Quad IM 3+ [facility] YRS Branch Influenza Virus Unknown Completed Universit y of Vaccine [facility] Pneumococcal Unknown Completed University o f Polysaccharide, [facility] PPSV23 (PNEUMOVAX) Branch Influenza Virus Unknown Completed Universit y of Vaccine Recomb Quad [facility] IM, Preserv and ABX Branc h Free 18-64 YRS TDAP (ADACEL) Unknown Completed University [facility] TDAP Unknown Completed [facility] Influenza Virus Unknown Completed Universit y of Vaccine Recomb Quad [facility] IM, Preserv and ABX Branc h Free 18-64 YRS SARS-COV-2 COVID-19 Unknown Completed [facility]ER [facility]ACCINE [facility] SARS-COV-2 COVID-19 Unknown Completed Unive rsity of PFIZER VACCINE [facility] Branch Influenza Virus Unknown Completed Universit y of Vaccine (3+ yrs) [facility] dical Branch SARS-COV-2 COVID-19 Unknown Completed Unive rsity of PFIZER VACCINE [facility] Pneumococcal Unknown Completed University o f Polysaccharide, [facility] ical PPSV23 (PNEUMOVAX) Branch Pneumococcal Unknown Completed University o f Polysaccharide, [facility] ical PPSV23 (PNEUMOVAX) Branch TDAP Unknown Completed [facility] Meningococcal Unknown Completed University of Polysaccharide [facility] (groups A, C, Y and Branc h W-135) conjugate vaccine (MCV4P) Heamophilus Unknown Completed [facility] Influenza B [facility] Pneumococcal 13 Unknown Completed Universit y of Conjugate, PCV13 [facility] (Prevnar 13) Branch Meningococcal B, OMV Unknown [facility] Influ[facility] Virus Unknown Completed Universit y of Vaccine Quad IM [facility] ical Multi-dose 6+ MO Branch Influenza Virus Unknown Completed Universit y of Vaccine Quad ID [facility] ical 18-64 YRS Branch Influenza Virus Unknown Completed Universit y of Vaccine Quad IM 3+ [facility] YRS Branch Influenza Virus Unknown Completed Universit y of Vaccine [facility] Pneumococcal Unknown Completed University o f Polysaccharide, [facility] ical PPSV23 (PNEUMOVAX) Branch Influenza Virus Unknown Completed Universit y of Vaccine Recomb Quad [facility] IM, Preserv and ABX Branc h Free 18-64 YRS TDAP (ADACEL) Unknown Completed University of VACCINE [facility] TDAP Unknown Com[facility] Influenza Virus Unknown Completed Universit y of Vaccine Recomb Quad [facility] IM, Preserv and ABX Branc h Free 18-64 YRS SARS-COV-2 COVID-19 Unknown Completed Unive rsity of PFIZER VACCINE [facility] SARS-COV-2 COVID-19 Unknown Completed Unive rsity of PFIZER VACCINE [facility] Branch Influenza Virus Unknown Completed Universit y of Vaccine (3+ yrs) [facility] dical Branch SARS-COV-2 COVID-19 Unknown Completed Unive rsity of PFIZER VACCINE [facility] Branch Pneumococcal Unknown Completed University o f Polysaccharide, [facility] ical PPSV23 (PNEUMOVAX) Branch Pneumococcal Unknown Completed University o f Polysaccharide, [place] [facility] ical PPSV23 (PNEUMOVAX) Branch TDAP Unknown Completed [facility] Meningococcal Unknown Completed University of Polysaccharide [facility] (groups A, C, Y and Branc h W-135) conjugate vaccine (MCV4P) Heamophilus Unknown Completed University of Influenza B [facility] Pneumococcal 13 Unknown Completed Universit y of Conjugate, PCV13 [facility] dical (Prevnar 13) Branch Meningococcal B, OMV Unknown [facility] Completed [facility] y of Vaccine Quad IM [facility] ical Multi-dose 6+ MO Branch Influenza Virus Unknown Completed [facility] y of Vaccine Quad ID [place] [facility] ical 18-64 YRS Branch Influenza Virus Unknown Completed [facility]it y of Vaccine Quad IM 3+ [facility] YRS Branch Influenza Virus Unknown Completed Universit y of Vaccine [facility] Pneumococcal Unknown Completed University o f Polysaccharide, [facility] ical PPSV23 (PNEUMOVAX) Branch Influenza Virus Unknown Completed Universit y of Vaccine Recomb Quad [facility] IM, Preserv and ABX Branc h Free 18-64 YRS TDAP (ADACEL) Unknown Completed University of VACCINE [facility] TDAP Unknown Completed [facility] Influenza Virus Unknown Completed Universit y of Vaccine Recomb Quad [facility] IM, Preserv and ABX Branc h Free 18-64 YRS SARS-COV-2 COVID-19 Unknown Completed Unive rsity of PFIZER VACCINE [facility] Branch SARS-COV-2 COVID-19 Unknown Completed Unive rsity of PFIZER VACCINE [facility] Branch Influenza Virus Unknown Completed Universit y of Vaccine (3+ yrs) [facility] dical Branch SARS-COV-2 COVID-19 Unknown Completed Unive rsity of PFIZER VACCINE [facility] Branch Pneumococcal Unknown Completed University o f Polysaccharide, [facility] ical PPSV23 (PNEUMOVAX) Branch Pneumococcal Unknown Completed University o f Polysaccharide, [facility] ical PPSV23 (PNEUMOVAX) Branch TDAP Unknown Completed [facility] Meningococcal Unknown Completed University of Polysaccharide [facility] (groups A, C, Y and Branc h W-135) conjugate vaccine (MCV4P) Heamophilus Unknown Completed University of Influenza B [facility] Pneumococcal 13 Unknown Completed Universit y of Conjugate, PCV13 [facility] dical (Prevnar 13) Branch Meningococcal B, OMV Unknown [facility] Virus [facility] Completed [facility] y of Vaccine Quad IM [place] [facility] ical Multi-dose 6+ MO Branch Influenza Virus Unknown Completed Universit y of Vaccine Quad ID [facility] ical 18-64 YRS Branch Influenza Virus Unknown Completed [facility]it y of Vaccine Quad IM 3+ [facility] YRS Branch Influenza Virus Unknown Completed Universit y of Vaccine [facility] Branch Pneumococcal Unknown Completed University o f Polysaccharide, [facility] ical PPSV23 (PNEUMOVAX) Branch Influenza Virus Unknown Completed Universit y of Vaccine Recomb Quad [facility] IM, Preserv and ABX Branc h Free 18-64 YRS TDAP (ADACEL) Unknown Completed University of VACCINE [facility] TDAP Unknown Completed University [facility] Influenza Virus Unknown Completed Universit y of Vaccine Recomb Quad [facility] IM, Preserv and ABX Branc h Free 18-64 YRS SARS-COV-2 COVID-19 Unknown Completed Unive rsity of PFIZER VACCINE [facility] Branch SARS-COV-2 COVID-19 Unknown Completed Unive rsity of PFIZER VACCINE [facility] Branch Influenza Virus Unknown Completed Universit y of Vaccine (3+ yrs) [facility] dical Branch SARS-COV-2 COVID-19 Unknown Completed Unive rsity of PFIZER VACCINE [facility] Branch Pneumococcal Unknown Completed University o f Polysaccharide, [facility] ical PPSV23 (PNEUMOVAX) Branch Pneumococcal Unknown Completed University o f Polysaccharide, [facility] ical PPSV23 (PNEUMOVAX) Branch TDAP Unknown Completed [facility] Meningococcal Unknown Completed University Polysaccharide [facility] (groups A, C, Y and Branc h W-135) conjugate vaccine (MCV4P) Heamophilus Unknown Completed [facility] Influenza B [facility] Pneumococcal 13 Unknown Completed Universit y of Conjugate, PCV13 [facility] (Prevnar 13) Branch Meningococcal B, OMV Unknown [facility] Virus Unknown Completed Universit y of Vaccine Quad IM [facility] ical Multi-dose 6+ MO Branch Influenza Virus Unknown Completed Universit y of Vaccine Quad ID [facility] ical 18-64 YRS Branch Influenza Virus Unknown Completed [facility]it y of Vaccine Quad IM 3+ [facility] YRS Branch Influenza Virus Unknown Completed Universit y of Vaccine [facility] Pneumococcal Unknown Completed University o f Polysaccharide, [facility] ica PPSV23 (PNEUMOVAX) Branch Influenza Virus Unknown Completed Universit y of Vaccine Recomb Quad [facility] IM, Preserv and ABX Branc h Free 18-64 YRS TDAP (ADACEL) Unknown Completed University of VACCINE [facility] TDAP Unknown Completed [facility] Influenza Virus Unknown Completed Universit y of Vaccine Recomb Quad [facility] IM, Preserv and ABX Branc h Free 18-64 YRS SARS-COV-2 COVID-19 Unknown Completed Unive rsity of PFIZER VACCINE [facility] Branch SARS-COV-2 COVID-19 Unknown Completed Unive rsity of PFIZER VACCINE [facility] Branch Influenza Virus Unknown Completed Universit y of Vaccine (3+ yrs) [facility] dical Branch SARS-COV-2 COVID-19 Unknown Completed Unive rsity of PFIZER VACCINE [facility] Branch Pneumococcal Unknown Completed University o f Polysaccharide, [place] [facility] ical PPSV23 (PNEUMOVAX) Branch Pneumococcal Unknown Completed University o f Polysaccharide, [facility] ical PPSV23 (PNEUMOVAX) Branch TDAP Unknown Completed [facility] Meningococcal Unknown Completed [facility] (groups A, C, Y and Branc h W-135) conjugate vaccine (MCV4P) Heamophilus Unknown Completed [facility] Influenza B [facility] Pneumococcal 13 Unknown Completed Universit y of Conjugate, PCV13 [facility] (Prevnar 13) Branch Meningococcal B, OMV Unknown [facility] Influ[facility] Virus Unknown Completed Universit y of Vaccine Quad IM [facility] ical Multi-dose 6+ MO Branch Influenza Virus Unknown Completed Universit y of Vaccine Quad ID [facility] ical 18-64 YRS Branch Influenza Virus Unknown Completed [facility]it y of Vaccine Quad IM 3+ [facility] YRS Branch Influenza Virus Unknown Completed [facility]it y of Vaccine [facility] Pneumococcal Unknown Completed University o f Polysaccharide, [place] [facility] ical PPSV23 (PNEUMOVAX) Branch Influenza Virus Unknown Completed Universit y of Vaccine Recomb Quad [facility] IM, Preserv and ABX Branc h Free 18-64 YRS TDAP (ADACEL) Unknown Completed University of VACCINE [facility] TDAP Unknown Completed [facility] Influenza Virus Unknown Completed Universit y of Vaccine Recomb Quad [facility] IM, Preserv and ABX Branc h Free 18-64 YRS SARS-COV-2 COVID-19 Unknown Completed Unive rsity of PFIZER VACCINE [facility] Branch SARS-COV-2 COVID-19 Unknown Completed Unive rsity of PFIZER VACCINE [facility] Branch Influenza Virus Unknown Completed Universit y of Vaccine (3+ yrs) [facility] dical Branch Pneumococcal Unknown Completed University o f Polysaccharide, [place] [facility] ical PPSV23 (PNEUMOVAX) Branch Pneumococcal Unknown Completed University o f Polysaccharide, [facility] ical PPSV23 (PNEUMOVAX) Branch TDAP Unknown Completed [facility] Meningococcal Unknown Completed University Polysaccharide [facility] (groups A, C, Y and Branc h W-135) conjugate vaccine (MCV4P) Heamophilus Unknown Completed [facility] Influenza B [facility] Pneumococcal 13 Unknown Completed Universit y of Conjugate, PCV13 [facility] dical (Prevnar 13) Branch Meningococcal B, OMV Unknown [facility] Influ[facility] Virus Unknown Completed Universit y of Vaccine Quad IM [facility] ical Multi-dose 6+ MO Branch Influenza Virus Unknown Completed Universit y of Vaccine Quad ID [facility] ical 18-64 YRS Branch Influenza Virus Unknown Completed Universit y of Vaccine Quad IM 3+ [facility] YRS Branch Influenza Virus Unknown Completed Universit y of Vaccine [facility] Pneumococcal Unknown Completed University o f Polysaccharide, [facility] ical PPSV23 (PNEUMOVAX) Branch Influenza Virus Unknown Completed Universit y of Vaccine Recomb Quad [facility], Preserv and ABX Branc h Free 18-64 YRS TDAP (ADACEL) Unknown Completed University VACCINE [facility] TDAP Unknown Completed [facility] Influenza Virus Unknown Completed Universit y of Vaccine Recomb Quad [facility] IM, Preserv and ABX Branc h Free 18-64 YRS SARS-COV-2 COVID-19 Unknown Completed Unive rsity of PFIZER VACCINE [facility] Branch SARS-COV-2 COVID-19 Unknown Completed Unive rsity of PFIZER VACCINE [facility] Branch Pneumococcal Unknown Completed University o f Polysaccharide, [facility] ical PPSV23 (PNEUMOVAX) Branch Pneumococcal Unknown Completed University o f Polysaccharide, [facility] ical PPSV23 (PNEUMOVAX) Branch TDAP Unknown Completed [facility] Meningococcal Unknown Completed University Polysaccharide [facility] (groups A, C, Y and Branc h W-135) conjugate vaccine (MCV4P) Heamophilus Unknown Completed [place] Influenza B [facility] Pneumococcal 13 Unknown Completed Universit y of Conjugate, PCV13 [facility] dical (Prevnar 13) Branch Meningococcal B, OMV Unknown [facility] Influ[facility] Virus Unknown Completed Universit y of Vaccine Quad IM [facility] ical Multi-dose 6+ MO Branch Influenza Virus Unknown Completed [facility] y of Vaccine Quad ID [place] [facility] 18-64 YRS Branch Influenza Virus Unknown Completed Universit y of Vaccine Quad IM 3+ [facility] YRS Branch Influenza Virus Unknown Completed Universit y of Vaccine [facility] Pneumococcal Unknown Completed University o f Polysaccharide, [facility] ical PPSV23 (PNEUMOVAX) Branch Influenza Virus Unknown Completed Universit y of Vaccine Recomb Quad [facility] IM, Preserv and ABX Branc h Free 18-64 YRS TDAP (ADACEL) Unknown Completed University [facility] TDAP Unknown Completed [facility] Influenza Virus Unknown Completed Universit y of Vaccine Recomb Quad [facility], Preserv and ABX Branc h Free 18-64 YRS SARS-COV-2 COVID-19 Unknown Completed Unive rsity of PFIZER VACCINE [facility] Branch SARS-COV-2 COVID-19 Unknown Completed Unive rsity of PFIZER VACCINE [facility] Branch Pneumococcal Unknown Completed University o f Polysaccharide, [facility] ical PPSV23 (PNEUMOVAX) Branch Pneumococcal Unknown Completed University o f Polysaccharide, [facility] ica PPSV23 (PNEUMOVAX) Branch TDAP Unknown [facility] Meningococcal Unknown Completed University [facility] (groups A, C, Y and Branc h W-135) conjugate vaccine (MCV4P) Heamophilus Unknown Completed [place] Influenza B [facility] Pneumococcal 13 Unknown Completed Universit y of Conjugate, PCV13 [facility] (Prevnar 13) Branch Meningococcal B, OMV Unknown [facility] Influ[facility] Virus Unknown Completed Universit y of Vaccine Quad IM [facility] Multi-dose 6+ MO Branch Influenza Virus Unknown Completed Universit y of Vaccine Quad ID [facility] ical 18-64 YRS Branch Influenza Virus Unknown Completed Universit y of Vaccine Quad IM 3+ [facility] YRS Branch Influenza Virus Unknown Completed Universit y of Vaccine [facility] Pneumococcal Unknown Completed University o f Polysaccharide, [facility] ica PPSV23 (PNEUMOVAX) Branch Influenza Virus Unknown Completed Universit y of Vaccine Recomb Quad [facility], Preserv and ABX Branc h Free 18-64 YRS TDAP (ADACEL) Unknown Completed [facility] TDAP Unknown Completed [facility] Influenza Virus Unknown Completed Universit y of Vaccine Recomb Quad [facility], Preserv and ABX Branc h Free 18-64 YRS SARS-COV-2 COVID-19 Unknown Completed Unive rsity of PFIZER VACCINE [facility] Branch SARS-COV-2 COVID-19 Unknown Completed Unive rsity of PFIZER VACCINE [facility] Pneumococcal Unknown Completed University o f Polysaccharide, [facility] ical PPSV23 (PNEUMOVAX) Branch Pneumococcal Unknown Completed University o f Polysaccharide, [facility] ical PPSV23 (PNEUMOVAX) Branch TDAP Unknown Completed [facility] Meningococcal Unknown Completed University of Polysaccharide [facility] (groups A, C, Y and Branc h W-135) conjugate vaccine (MCV4P) Heamophilus Unknown Completed [place] Influenza B [facility] Pneumococcal 13 Unknown Completed Universit y of Conjugate, PCV13 [facility] dical (Prevnar 13) Branch Meningococcal B, OMV Unknown [facility]pleted [facility] Influ[facility] Virus Unknown Completed Universit y of Vaccine Quad IM [facility] ical Multi-dose 6+ MO Branch Influenza Virus Unknown Completed Universit y of Vaccine Quad ID [facility] ical 18-64 YRS Branch Influenza Virus Unknown Completed Universit y of Vaccine Quad IM 3+ [place] [facility] YRS Branch Influenza Virus Unknown Completed Universit y of Vaccine [facility] Pneumococcal Unknown Completed University o f Polysaccharide, [facility] ical PPSV23 (PNEUMOVAX) Branch Influenza Virus Unknown Completed Universit y of Vaccine Recomb Quad [facility] IM, Preserv and ABX Branc h Free 18-64 YRS TDAP (ADACEL) Unknown Completed University [facility] TDAP Unknown Com[facility] Influenza Virus Unknown Completed Universit y of Vaccine Recomb Quad [facility] IM, Preserv and ABX Branc h Free 18-64 YRS SARS-COV-2 COVID-19 Unknown Completed Unive rsity of PFIZER VACCINE [facility] SARS-COV-2 COVID-19 Unknown Completed Unive rsity of PFIZER VACCINE [facility] Branch Pneumococcal Unknown Completed University o f Polysaccharide, [facility] ical PPSV23 (PNEUMOVAX) Branch Pneumococcal Unknown Completed University o f Polysaccharide, [facility] ical PPSV23 (PNEUMOVAX) Branch TDAP Unknown Completed [facility] Meningococcal Unknown Completed University of Polysaccharide [facility] (groups A, C, Y and Branc h W-135) conjugate vaccine (MCV4P) Heamophilus Unknown Completed [place] Influenza B [facility] Pneumococcal 13 Unknown Completed Universit y of Conjugate, PCV13 [facility] dical (Prevnar 13) Branch Meningococcal B, OMV Unknown [facility] Influ[facility] Virus Unknown Completed Universit y of Vaccine Quad IM [facility] ical Multi-dose 6+ MO Branch Influenza Virus Unknown Completed Universit y of Vaccine Quad ID [facility] ical 18-64 YRS Branch Influenza Virus Unknown Completed Universit y of Vaccine Quad IM 3+ [facility] YRS Branch Influenza Virus Unknown Completed Universit y of Vaccine [facility] Pneumococcal Unknown Completed University o f Polysaccharide, [facility] ical PPSV23 (PNEUMOVAX) Branch Influenza Virus Unknown Completed Universit y of Vaccine Recomb Quad [facility] IM, Preserv and ABX Branc h Free 18-64 YRS TDAP (ADACEL) Unknown Completed University [facility] TDAP Unknown [facility] Influenza Virus Unknown Completed Universit y of Vaccine Recomb Quad [facility] IM, Preserv and ABX Branc h Free 18-64 YRS SARS-COV-2 COVID-19 Unknown Completed Unive rsity of PFIZER VACCINE [facility] Branch SARS-COV-2 COVID-19 Unknown Completed Unive rsity of PFIZER VACCINE [facility] Branch Pneumococcal Unknown Completed University o f Polysaccharide, [facility] ical PPSV23 (PNEUMOVAX) Branch Pneumococcal Unknown Completed University o f Polysaccharide, [facility] ical PPSV23 (PNEUMOVAX) Branch TDAP Unknown Completed [facility] Meningococcal Unknown Completed [facility] (groups A, C, Y and Branc h W-135) conjugate vaccine (MCV4P) Heamophilus Unknown Completed [facility] Influenza B [facility] Pneumococcal 13 Unknown Completed Universit y of Conjugate, PCV13 [facility] (Prevnar 13) Branch Meningococcal B, OMV Unknown [facility] Influ[facility] Virus Unknown Completed Universit y of Vaccine Quad IM [facility] ical Multi-dose 6+ MO Branch Influenza Virus Unknown Completed Universit y of Vaccine Quad ID [facility] ical 18-64 YRS Branch Influenza Virus Unknown Completed Universit y of Vaccine Quad IM 3+ [facility] YRS Branch Influenza Virus Unknown Completed Universit y of Vaccine [facility] Pneumococcal Unknown Completed University o f Polysaccharide, [facility] ical PPSV23 (PNEUMOVAX) Branch Influenza Virus Unknown Completed Universit y of Vaccine Recomb Quad [facility] IM, Preserv and ABX Branc h Free 18-64 YRS TDAP (ADACEL) Unknown Completed [facility] TDAP Unknown Com[facility] Influenza Virus Unknown Completed Universit y of Vaccine Recomb Quad [facility] IM, Preserv and ABX Branc h Free 18-64 YRS SARS-COV-2 COVID-19 Unknown Completed Unive rsity of PFIZER VACCINE [facility] SARS-COV-2 COVID-19 Unknown Completed Unive rsity of PFIZER VACCINE [facility] Branch Pneumococcal Unknown Completed University o f Polysaccharide, [place] [facility] ical PPSV23 (PNEUMOVAX) Branch Pneumococcal Unknown Completed University o f Polysaccharide, [facility] ical PPSV23 (PNEUMOVAX) Branch TDAP Unknown Com[facility] Meningococcal Unknown Completed [facility] of Polysaccharide [facility] (groups A, C, Y and Branc h W-135) conjugate vaccine (MCV4P) Heamophilus Unknown Completed [facility] Influenza B [facility] Pneumococcal 13 Unknown Completed Universit y of Conjugate, PCV13 [facility] dical (Prevnar 13) Branch Meningococcal B, OMV Unknown [facility] Influ[facility] Virus Unknown Completed Universit y of Vaccine Quad IM [facility] ical Multi-dose 6+ MO Branch Influenza Virus Unknown Completed Universit y of Vaccine Quad ID [facility] ical 18-64 YRS Branch Influenza Virus Unknown Completed Universit y of Vaccine Quad IM 3+ [place] [facility] YRS Branch Influenza Virus Unknown Completed Universit y of Vaccine [facility] Pneumococcal Unknown Completed University o f Polysaccharide, [facility] ical PPSV23 (PNEUMOVAX) Branch Influenza Virus Unknown Completed Universit y of Vaccine Recomb Quad [facility] IM, Preserv and ABX Branc h Free 18-64 YRS TDAP (ADACEL) Unknown Completed University of VACCINE [facility] TDAP Unknown Completed [facility] Influenza Virus Unknown Completed Universit y of Vaccine Recomb Quad [facility] IM, Preserv and ABX Branc h Free 18-64 YRS SARS-COV-2 COVID-19 Unknown Completed Unive rsity of PFIZER VACCINE [facility] Branch SARS-COV-2 COVID-19 Unknown Completed Unive rsity of PFIZER VACCINE [facility] Branch Pneumococcal Unknown Completed University o f Polysaccharide, [facility] ical PPSV23 (PNEUMOVAX) Branch Pneumococcal Unknown Completed University o f Polysaccharide, [place] [facility] ical PPSV23 (PNEUMOVAX) Branch TDAP Unknown Com[facility] Meningococcal Unknown Completed [facility] of Polysaccharide [facility] (groups A, C, Y and Branc h W-135) conjugate vaccine (MCV4P) Heamophilus Unknown Completed [place] Influenza B [facility] Pneumococcal 13 Unknown Completed Universit y of Conjugate, PCV13 [facility] dical (Prevnar 13) Branch Meningococcal B, OMV Unknown [facility] Influ[facility] Virus Unknown Completed [facility] y of Vaccine Quad IM [place] [facility] Multi-dose 6+ MO Branch Influenza Virus Unknown Completed [facility] Vaccine Quad ID [place] [facility] 18-64 Y[facility] Branch Influenza Virus Unknown Completed [facility] Vaccine Quad IM 3+ [place] [facility] Influenza Virus Unknown Completed Universit y of Vaccine [facility] Pneumococcal Unknown Completed University o f Polysaccharide, [facility] ical PPSV23 (PNEUMOVAX) Branch Influenza Virus Unknown Completed Universit y of Vaccine Recomb Quad [facility] IM, Preserv and ABX Branc h Free 18-64 YRS TDAP (ADACEL) Unknown Completed [facility] TDAP Unknown Com[facility] Influenza Virus Unknown Completed Universit y of Vaccine Recomb Quad [facility] IM, Preserv and ABX Branc h Free 18-64 YRS SARS-COV-2 COVID-19 Unknown Completed Unive rsity of PFIZER VACCINE [facility] Branch SARS-COV-2 COVID-19 Unknown Completed Unive rsity of PFIZER VACCINE [facility] Branch Pneumococcal Unknown Completed University o f Polysaccharide, [facility] ical PPSV23 (PNEUMOVAX) Branch Pneumococcal Unknown Completed University o f Polysaccharide, [facility] ical PPSV23 (PNEUMOVAX) Branch TDAP Unknown Completed [facility] Meningococcal Unknown Completed University [facility] (groups A, C, Y and Branc h W-135) conjugate vaccine (MCV4P) Heamophilus Unknown Completed [place] Influenza B [facility] Pneumococcal 13 Unknown Completed Universit y of Conjugate, PCV13 [facility] dical (Prevnar 13) Branch Meningococcal B, OMV Unknown [facility] Completed Universit y of Vaccine Quad IM [facility] ical Multi-dose 6+ MO Branch Influenza Virus Unknown Completed Universit y of Vaccine Quad ID [facility] ical 18-64 YRS Branch Influenza Virus Unknown Completed [facility]it y of Vaccine Quad IM 3+ [place] [facility] Y[facility] Influenza Virus Unknown Completed Universit y of Vaccine [facility] Pneumococcal Unknown Completed University o f Polysaccharide, [facility] ical PPSV23 (PNEUMOVAX) Branch Influenza Virus Unknown Completed Universit y of Vaccine Recomb Quad [facility], Preserv and ABX Branc h Free 18-64 YRS TDAP (ADACEL) Unknown Completed [facility] Branch TDAP Unknown Completed [facility] Influenza Virus Unknown Completed [facility]it y of Vaccine Recomb Quad [place] [facility] IM, Preserv and ABX Branc h Free 18-64 YRS Pneumococcal Unknown Completed University o f Polysaccharide, [facility] ical PPSV23 (PNEUMOVAX) Branch Pneumococcal Unknown Completed University o f Polysaccharide, [facility] ical PPSV23 (PNEUMOVAX) Branch TDAP Unknown Completed [facility] Meningococcal Unknown Completed [facility] Polysaccharide [place] [facility] (groups A, C, Y and Branc h W-135) conjugate vaccine (MCV4P) Heamophilus Unknown Completed [facility] Influenza B [facility] Pneumococcal 13 Unknown Completed Universit y of Conjugate, PCV13 [facility] dical (Prevnar 13) Branch Meningococcal B, OMV Unknown Completed Univ [facility] Influenza Virus Unknown Completed Universit y of Vaccine Quad IM [facility] ical Multi-dose 6+ MO Branch Influenza Virus Unknown Completed Universit y of Vaccine Quad ID [facility] ical 18-64 YRS Branch Influenza Virus Unknown Completed Universit y of Vaccine Quad IM 3+ [facility] YRS Branch Influenza Virus Unknown Completed Universit y of Vaccine [facility] Pneumococcal Unknown Completed University o f Polysaccharide, [facility] ical PPSV23 (PNEUMOVAX) Branch Influenza Virus Unknown Completed Universit y of Vaccine Recomb Quad [facility] IM, Preserv and ABX Branc h Free 18-64 YRS TDAP (ADACEL) Unknown Completed University of VACCINE [facility] TDAP Unknown Completed [facility] Influenza Virus Unknown Completed Universit y of Vaccine Recomb Quad [facility] IM, Preserv and ABX Branc h Free 18-64 YRS Pneumococcal Unknown Completed University o f Polysaccharide, [place] [facility] PPSV23 (PNEUMOVAX) Branch Pneumococcal Unknown Completed University o f Polysaccharide, [place] [facility] PPSV23 (PNEUMOVAX) Branch TDAP Unknown Completed [facility] Meningococcal Unknown Completed [facility] Polysaccharide [place] [facility] (groups A, C, Y and Branc h W-135) conjugate vaccine (MCV4P) Heamophilus Unknown Completed [place] Influenza B [facility] Pneumococcal 13 Unknown Completed Universit y of Conjugate, PCV13 [facility] dical (Prevnar 13) Branch Meningococcal B, OMV Unknown Com[facility] Virus Unknown Completed [facility] y of Vaccine Quad IM [place] [facility] Multi-dose 6+ MO Branch Influenza Virus Unknown Completed Universit y of Vaccine Quad ID [facility] ical 18-64 YRS Branch Influenza Virus Unknown Completed [facility]it y of Vaccine Quad IM 3+ [place] [facility] Y[facility] Branch Influenza Virus Unknown Completed Universit y of Vaccine [facility] Pneumococcal Unknown Completed University o f Polysaccharide, [facility] ical PPSV23 (PNEUMOVAX) Branch Influenza Virus Unknown Completed Universit y of Vaccine Recomb Quad [facility] IM, Preserv and ABX Branc h Free 18-64 YRS TDAP (ADACEL) Unknown Completed University [facility] TDAP Unknown Completed [facility] Influenza Virus Unknown Completed Universit y of Vaccine Recomb Quad [facility] IM, Preserv and ABX Branc h Free 18-64 YRS Pneumococcal Unknown Completed [place] Polysaccharide, [facility] ical PPSV23 (PNEUMOVAX) Branch Pneumococcal Unknown Completed University o f Polysaccharide, [facility] ical PPSV23 (PNEUMOVAX) Branch TDAP Unknown Completed [facility] Meningococcal Unknown Completed [facility] (groups A, C, Y and Branc h W-135) conjugate vaccine (MCV4P) Heamophilus Unknown Completed [facility] Influenza B [facility] Pneumococcal 13 Unknown Completed Universit y of Conjugate, PCV13 [facility] dicsc (Prevnar 13) Branch Meningococcal B, OMV Unknown Completed [facility] Influenza Virus Unknown Completed Universit y of Vaccine Quad IM [facility] ica Multi-dose 6+ MO Branch Influenza Virus Unknown Completed Universit y of Vaccine Quad ID [facility] ical 18-64 YRS Branch Influenza Virus Unknown Completed Universit y of Vaccine Quad IM 3+ [facility] YRS Branch Influenza Virus Unknown Completed Universit y of Vaccine [facility] Pneumococcal Unknown Completed University o f Polysaccharide, [facility] ical PPSV23 (PNEUMOVAX) Branch Influenza Virus Unknown Completed Universit y of Vaccine Recomb Quad [facility] IM, Preserv and ABX Branc h Free 18-64 YRS TDAP (ADACEL) Unknown Completed University of [facility] TDAP Unknown Completed [facility] Influenza Virus Unknown Completed Universit y of Vaccine Recomb Quad [facility], Preserv and ABX Branc h Free 18-64 YRS Pneumococcal Unknown Completed University o f Polysaccharide, [facility] ical PPSV23 (PNEUMOVAX) Branch Pneumococcal Unknown Completed University o f Polysaccharide, [facility] ical PPSV23 (PNEUMOVAX) Branch TDAP Unknown Completed [facility] Meningococcal Unknown Completed University of Polysaccharide [facility] cipriano (groups A, C, Y and Branc h W-135) conjugate vaccine (MCV4P) Heamophilus Unknown Completed [place] Influenza B [facility] Pneumococcal 13 Unknown Completed Universit y of Conjugate, PCV13 [facility] dical (Prevnar 13) Branch Meningococcal B, OMV Unknown Completed [facility] Influenza Virus Unknown Completed [facility] y of Vaccine Quad IM [place] [facility] Multi-dose 6+ MO Branch Influenza Virus Unknown Completed [facility] y of Vaccine Quad ID [place] [facility] 18-64 YRS Branch Influenza Virus Unknown Completed [facility]it y of Vaccine Quad IM 3+ [place] [facility] YRS Branch Influenza Virus Unknown Completed Universit y of Vaccine [facility] Pneumococcal Unknown Completed University o f Polysaccharide, [place] [facility] PPSV23 (PNEUMOVAX) Branch Influenza Virus Unknown Completed Universit y of Vaccine Recomb Quad [facility] IM, Preserv and ABX Branc h Free 18-64 YRS TDAP (ADACEL) Unknown Completed University [facility] TDAP Unknown Completed [facility] Influenza Virus Unknown Completed Universit y of Vaccine Recomb Quad [facility] IM, Preserv and ABX Branc h Free 18-64 YRS Pneumococcal Unknown Completed University o f Polysaccharide, [facility] ical PPSV23 (PNEUMOVAX) Branch Pneumococcal Unknown Completed University o f Polysaccharide, [facility] ical PPSV23 (PNEUMOVAX) Branch TDAP Unknown Completed [facility] Meningococcal Unknown Completed University of Polysaccharide [facility] cipriano (groups A, C, Y and Branc h W-135) conjugate vaccine (MCV4P) Heamophilus Unknown Completed [place] Influenza B [facility] Pneumococcal 13 Unknown Completed Universit y of Conjugate, PCV13 [facility] dical (Prevnar 13) Branch Meningococcal B, OMV Unknown Completed [facility] Influenza Virus Unknown Completed [facility] y of Vaccine Quad IM [place] [facility] Multi-dose 6+ MO Branch Influenza Virus Unknown Completed [facility] of Vaccine Quad ID [place] [facility] 18-64 YRS Branch Influenza Virus Unknown Completed [facility]it y of Vaccine Quad IM 3+ [place] [facility] Y[facility] Branch Influenza Virus Unknown Completed Universit y of Vaccine [facility] Pneumococcal Unknown Completed University o f Polysaccharide, [facility] ical PPSV23 (PNEUMOVAX) Branch Influenza Virus Unknown Completed Universit y of Vaccine Recomb Quad [facility] IM, Preserv and ABX Branc h Free 18-64 YRS TDAP (ADACEL) Unknown Completed University of VACCINE [facility] TDAP Unknown Completed [facility] Influenza Virus Unknown Completed [facility]it y of Vaccine Recomb Quad [place] [facility] IM, Preserv and ABX Branc h Free 18-64 YRS Pneumococcal Unknown Completed University o f Polysaccharide, [facility] ical PPSV23 (PNEUMOVAX) Branch Pneumococcal Unknown Completed [facility] o f Polysaccharide, [place] [facility] ical PPSV23 (PNEUMOVAX) Branch TDAP Unknown Completed [facility] Meningococcal Unknown Completed [place] [facility] Polysaccharide [place] [facility] (groups A, C, Y and Branc h W-135) conjugate vaccine (MCV4P) Heamophilus Unknown Completed [facility] Influenza B [facility] Pneumococcal 13 Unknown Completed Universit y of Conjugate, PCV13 [facility] dical (Prevnar 13) Branch Meningococcal B, OMV Unknown Completed Univ [facility] Influenza Virus Unknown Completed Universit y of Vaccine Quad IM [facility] ical Multi-dose 6+ MO Branch Influenza Virus Unknown Completed Universit y of Vaccine Quad ID [facility] ical 18-64 YRS Branch Influenza Virus Unknown Completed [facility]it y of Vaccine Quad IM 3+ [place] [facility] YRS Branch Influenza Virus Unknown Completed Universit y of Vaccine [facility] Pneumococcal Unknown Completed University o f Polysaccharide, [facility] ical PPSV23 (PNEUMOVAX) Branch Influenza Virus Unknown Completed Universit y of Vaccine Recomb Quad [facility], Preserv and ABX Branc h Free 18-64 YRS TDAP (ADACEL) Unknown Completed University of VACCINE [facility] TDAP Unknown Completed [facility] Influenza Virus Unknown Completed Universit y of Vaccine Recomb Quad [facility] IM, Preserv and ABX Branc h Free 18-64 YRS Pneumococcal Unknown Completed University o f Polysaccharide, [facility] ical PPSV23 (PNEUMOVAX) Branch Pneumococcal Unknown Completed University o f Polysaccharide, [place] [facility] ical PPSV23 (PNEUMOVAX) Branch TDAP Unknown Completed [facility] Meningococcal Unknown Completed [facility] Polysaccharide [place] [facility] (groups A, C, Y and Branc h W-135) conjugate vaccine (MCV4P) Heamophilus Unknown Completed [place] Influenza B [facility] Pneumococcal 13 Unknown Completed Universit y of Conjugate, PCV13 [facility] dical (Prevnar 13) Branch Meningococcal B, OMV Unknown Completed Univ [facility] Influenza Virus Unknown Completed [facility] y of Vaccine Quad IM [place] [facility] Multi-dose 6+ MO Branch Influenza Virus Unknown Completed [facility] y of Vaccine Quad ID [place] [facility] 18-64 YRS Branch Influenza Virus Unknown Completed [facility] y of Vaccine Quad IM 3+ [place] [facility] Y[facility] Branch Influenza Virus Unknown Completed Universit y of Vaccine [facility] Pneumococcal Unknown Completed [place] Polysaccharide, [place] [facility] ical PPSV23 (PNEUMOVAX) Branch Influenza Virus Unknown Completed Universit y of Vaccine Recomb Quad [place] [facility] IM, Preserv and ABX Branc h Free 18-64 YRS TDAP (ADACEL) Unknown Completed University of VACCINE [facility] TDAP Unknown Completed [facility] Influenza Virus Unknown Completed [facility] y of Vaccine Recomb Quad [facility] IM, Preserv and ABX Branc h Free 18-64 YRS Pneumococcal Unknown Completed [place] Polysaccharide, [facility] ical PPSV23 (PNEUMOVAX) Branch Vital Signs Vital Name Observation Time Observation Value Comments Source Systolic blood 2023-03-07 16:47:00 132 mm[Hg] Univer sity of pressure [facility] Diastolic blood 2023-03-07 16:47:00 66 mm[Hg] Unive rsity of pressure [facility] Heart rate 2023-03-07 16:47:00 103 /min [facility] Body temperature 2023-03-07 16:47:00 36.06 Melissa Univ ersity [facility] Respiratory rate 2023-03-07 16:47:00 18 /min [facility] O[facility] saturation in 2023-03-07 16:47:00 98 /min University of Arterial blood by [facility] Pulse oximetry Branch Systolic blood 2023-02-22 13:12:00 106 mm[Hg] Univer sity of pressure [facility] Diastolic blood 2023-02-22 13:12:00 73 mm[Hg] Unive rsity of pressure [facility] Heart rate 2023-02-22 13:12:00 96 /min Universi [facility] Body temperature 2023-02-22 13:12:00 36.28 Melissa Univ ersity [facility] Respiratory rate 2023-02-22 13:12:00 16 /min [facility] Oxygen saturation in 2023-02-22 13:12:00 99 /min University of Arterial blood by [facility] Pulse oximetry Branch Body height 2023-02-17 07:20:00 162.6 cm [facility] Body weight 2023-02-17 07:20:00 73 kg [facility] BMI 2023-02-17 07:20:00 27.62 kg/m2 [facility] Height 2023-02-06 17:35:00 157.48 CM Weight 2023-02-06 [...] kg Systolic blood 2022-11-18 14:42:00 123 mm[Hg] Univer sity of pressure [facility] Diastolic blood 2022-11-18 14:42:00 82 mm[Hg] Unive rsity of pressure [facility] Heart rate 2022-11-18 14:42:00 109 /min [facility] [place] [facility] Body temperature 2022-11-18 14:42:00 36.72 Melissa Univ ersity of [facility] Branch Respiratory rate 2022-11-18 14:42:00 18 /min Univ ersity of [facility] Body height 2022-11-18 14:42:00 162.6 cm [facility] [place] [facility] [place] Body weight 2022-11-18 14:42:00 97.523 kg [facility] BMI 2022-11-18 14:42:00 36.90 kg/m2 [facility] Heart rate 2022-10-29 21:30:00 91 /min [facility] [place] [facility] Respiratory rate 2022-10-29 21:30:00 14 /min [facility] Oxygen saturation in 2022-10-29 21:30:00 98 /min University Arterial blood by [facility] Pulse oximetry Branch Systolic blood 2022-10-29 20:21:00 125 mm[Hg] Univer sity of pressure [facility] Diastolic blood 2022-10-29 20:21:00 79 mm[Hg] Unive rsity of pressure [facility] Body temperature 2022-10-29 20:21:00 36.89 Melissa Univ ersity [facility] Body height 2022-10-29 20:21:00 157.5 cm [facility] Body weight 2022-10-29 20:21:00 94.348 kg [facility] BMI 2022-10-29 20:21:00 38.04 kg/m2 [facility] Systolic blood 2022-10-27 15:21:00 91 mm[Hg] Univer sity of pressure [facility] Diastolic blood 2022-10-27 15:21:00 58 mm[Hg] Unive rsity of pressure [facility] Heart rate 2022-10-27 15:21:00 82 /min [facility] Body height 2022-10-27 15:21:00 157.5 cm [facility] Body weight 2022-10-27 15:21:00 94.394 kg [facility] BMI 2022-10-27 15:21:00 38.06 kg/m2 [facility] Oxygen saturation in 2022-10-27 15:21:00 95 /min University of Arterial blood by [place] [facility] Pulse oximetry Branch HEIGHT 2022-10-22 05:49:00 157.5 cm WEIGHT 2022-10-22 05:49:00 96.48 kg HEIGHT 2022-10-22 05:49:00 157.5 cm WEIGHT 2022-10-22 05:49:00 96.48 kg Systolic blood 2022-10-19 21:30:00 148 mm[Hg] Univer sity of pressure [facility] Diastolic blood 2022-10-19 21:30:00 89 mm[Hg] Unive rsity of pressure [facility] Heart rate 2022-10-19 21:30:00 115 /min [facility] Body temperature 2022-10-19 21:30:00 37.17 Melissa Univ ers[facility] Respiratory rate 2022-10-19 21:30:00 16 /min Univ ers[facility] Oxygen saturation in 2022-10-19 21:30:00 97 /min [facility] of Arterial blood by [place] [facility] Pulse oximetry Branch Body height 2022-10-19 04:03:00 172.7 cm [facility] Body weight 2022-10-19 04:03:00 98.884 kg [facility] BMI 2022-10-19 04:03:00 33.15 kg/m2 [facility] [place] [facility] Systolic blood 2022-10-18 16:13:00 102 mm[Hg] Univer sity of pressure [facility] Diastolic blood 2022-10-18 16:13:00 69 mm[Hg] Unive rsity of pressure [facility] Heart rate 2022-10-18 16:13:00 82 /min [facility] Body height 2022-10-18 16:13:00 157.5 cm [facility] Body weight 2022-10-18 16:13:00 98.884 kg [facility] BMI 2022-10-18 16:13:00 39.87 kg/m2 [facility] Oxygen saturation in 2022-10-18 16:13:00 99 /min [facility] Arterial blood by [place] [facility] Pulse oximetry Branch Systolic blood 2022-10-15 16:05:00 97 mm[Hg] Univer sity of pressure [facility] Diastolic blood 2022-10-15 16:05:00 62 mm[Hg] Unive rsity of pressure [facility] Heart rate 2022-10-15 16:05:00 98 /min [facility] Body temperature 2022-10-15 16:05:00 36.33 Melissa Univ ersity [facility] Respiratory rate 2022-10-15 16:05:00 16 /min Univ ers[facility] Body height 2022-10-15 16:05:00 157.5 cm [facility] Body weight 2022-10-15 16:05:00 99.791 kg [facility] BMI 2022-10-15 16:05:00 40.24 kg/m2 [facility] Oxygen saturation in 2022-10-15 16:05:00 98 /min [facility] Arterial blood by [place] [facility] Pulse oximetry Branch Systolic blood 2022-10-07 19:00:00 125 mm[Hg] Univer sity of pressure [facility] Diastolic blood 2022-10-07 19:00:00 78 mm[Hg] Unive rsity of pressure [facility] Heart rate 2022-10-07 19:00:00 85 /min [facility] Respiratory rate 2022-10-07 19:00:00 18 /min Univ ersity [facility] Oxygen saturation in 2022-10-07 19:00:00 100 /min [facility] Arterial blood by [place] [facility] Pulse oximetry Branch Body temperature 2022-10-07 17:09:00 37.28 Melissa [facility] ers[facility] Body height 2022-10-07 17:09:00 157.5 cm [facility] Body weight 2022-10-07 17:09:00 102.059 kg [facility] BMI 2022-10-07 17:09:00 41.15 kg/m2 [facility] Systolic blood 2022-10-07 14:03:00 119 mm[Hg] Univer sity of pressure [facility] Diastolic blood 2022-10-07 14:03:00 81 mm[Hg] Unive rsity of pressure [facility] Heart rate 2022-10-07 14:03:00 104 /min [facility] Body temperature 2022-10-07 14:03:00 36.28 Melissa [facility] Body height 2022-10-07 14:03:00 157.5 cm [facility] Body weight 2022-10-07 14:03:00 102.377 kg [facility] BMI 2022-10-07 14:03:00 41.28 kg/m2 [facility] Oxygen saturation in 2022-10-07 14:03:00 100 /min [facility] Arterial blood by [place] [facility] Pulse oximetry Branch Systolic blood 2022-09-03 17:29:00 97 mm[Hg] Univer sity of pressure [facility] Diastolic blood 2022-09-03 17:29:00 64 mm[Hg] Unive rsity of pressure [facility] Heart rate 2022-09-03 17:29:00 95 /min [facility] Body temperature 2022-09-03 17:29:00 37.17 Melissa Univ [facility] Body height 2022-09-03 17:29:00 157.5 cm [facility] Body weight 2022-09-03 17:29:00 101.606 kg [facility] BMI 2022-09-03 17:29:00 40.97 kg/m2 [facility] Oxygen saturation in 2022-09-03 17:29:00 96 /min [facility] Arterial blood by [place] [facility] Pulse oximetry Branch Systolic blood 2022-08-24 14:41:00 115 mm[Hg] Univer sity of pressure [facility] Diastolic blood 2022-08-24 14:41:00 77 mm[Hg] Unive rsity of pressure [facility] Heart rate 2022-08-24 14:41:00 105 /min [facility] Body temperature 2022-08-24 14:41:00 36.61 Melissa Univ ers[facility] Body weight 2022-08-24 14:41:00 102.967 kg [facility] BMI 2022-08-24 14:41:00 41.52 kg/m2 [facility] Systolic blood 2022-07-27 13:03:00 112 mm[Hg] Univer sity of pressure [facility] Diastolic blood 2022-07-27 13:03:00 75 mm[Hg] Unive rsity of pressure [facility] Heart rate 2022-07-27 13:03:00 98 /min [facility] Body temperature 2022-07-27 13:03:00 36.83 Melissa [facility] Body weight 2022-07-27 13:03:00 102.967 kg [facility] BMI 2022-07-27 13:03:00 41.52 kg/m2 [facility] Oxygen saturation in 2022-07-27 13:03:00 94 /min [facility] by [place] [facility] Pulse oximetry [facility] Systolic blood 2022-06-17 15:45:00 104 mm[Hg] [facility] Diastolic blood 2022-06-17 15:45:00 69 mm[Hg] [facility] Heart rate 2022-06-17 15:45:00 97 /min [facility] Body height 2022-06-17 15:45:00 157.5 cm [facility] Body weight 2022-06-17 15:45:00 101.878 kg [facility] BMI 2022-06-17 15:45:00 41.08 kg/m2 [facility] Oxygen saturation in 2022-06-17 15:45:00 98 /min [facility] [place] [facility] Systolic blood 2022-06-15 13:01:00 101 mm[Hg] [facility] Diastolic blood 2022-06-15 13:01:00 68 mm[Hg] [facility] Heart rate 2022-06-15 13:01:00 74 /min [facility] Body temperature 2022-06-15 13:01:00 36.89 Melissa [facility] Body weight 2022-06-15 13:01:00 102.967 kg [facility] BMI 2022-06-15 13:01:00 41.52 kg/m2 [facility] Systolic blood 2022-03-27 12:44:00 131 mm[Hg] [facility] Diastolic blood 2022-03-27 12:44:00 83 mm[Hg] [facility] Heart rate 2022-03-27 12:44:00 102 /min [facility] Body temperature 2022-03-27 12:44:00 37.11 Melissa [facility] Respiratory rate 2022-03-27 12:44:00 18 /min [facility] Body height 2022-03-27 12:44:00 157.5 cm [facility] Body weight 2022-03-27 12:44:00 96.616 kg [facility] BMI 2022-03-27 12:44:00 38.96 kg/m2 [facility] Oxygen saturation in 2022-03-27 12:44:00 98 /min [facility] Arterial blood by [employer] cipriano P[facility] oxim[facility] Systolic blood 2022-03-02 15:40:00 113 mm[Hg] [facility] Diastolic blood 2022-03-02 15:40:00 72 mm[Hg] [facility] Heart rate 2022-03-02 15:40:00 82 /min [facility] Respiratory rate 2022-03-02 15:40:00 16 /min [facility] Oxygen saturation in 2022-03-02 15:40:00 97 /min [facility] Arterial blood by [facility] Pulse oximetry Branch Body temperature 2022-03-02 15:23:00 36.28 Melissa [facility] Body weight 2022-02-24 17:00:00 100.245 kg [facility] BMI 2022-02-24 17:00:00 40.42 kg/m2 [facility] Systolic blood 2022-03-02 15:25:00 98 mm[Hg] Univer sity of pressure [facility] Diastolic blood 2022-03-02 15:25:00 55 mm[Hg] Unive rsity of pressure [facility] Heart rate 2022-03-02 15:25:00 85 /min [facility] Respiratory rate 2022-03-02 15:25:00 18 /min [facility] Oxygen saturation in 2022-03-02 15:25:00 100 /min [facility] Arterial blood by [facility] Pulse oximetry Branch Body temperature 2022-03-02 15:23:00 36.28 Melissa [facility] Body weight 2022-02-24 17:00:00 100.245 kg [facility] BMI 2022-02-24 17:00:00 40.42 kg/m2 [facility] Systolic (mm Hg) 2023-07-21 20:16:00 Sidney [facility] Diastolic (mm Hg) 2023-07-21 20:16:00 Mem o[facility] Heart Rate 2023-07-21 20:16:00 [facility] Temperature Oral (F) 2023-07-21 20:16:00 99 F [facility] Temperature Oral (F) 2023-07-16 12:21:00 99.6 F [facility] Height 2023-07-13 04:20:00 5 [ft_i] [facility] Weight 2023-07-13 04:20:00 [facility] BMI Calculated 2023-07-13 04:20:00 Memori al [facility] Heart Rate 2023-07-11 21:47:07 [facility] Systolic (mm Hg) 2023-07-11 21:47:00 [facility] [place] Diastolic (mm Hg) 2023-07-11 21:47:00 [facility] [place] Temperature Oral (F) 2023-07-11 21:46:15 99.3 F [facility] Temperature Oral (F) 2023-07-11 10:28:01 97.9 F [facility] Temperature Oral (F) 2023-06-18 21:00:00 98.2 F [facility] Height 2023-06-18 01:00:00 5 [ft_i] [facility] Weight 2023-06-18 01:00:00 [facility] BMI Calculated 2023-06-18 01:00:00 [facility] Weight 2023-06-17 14:17:00 [facility] Heart Rate 2023-05-06 14:16:13 [facility] Temperature Oral (F) 2023-05-06 14:15:55 97.4 F [facility] Systolic (mm Hg) 2023-05-06 14:15:45 Sidneyambrose dyer Tay Diastolic (mm Hg) 2023-05-06 14:15:45 Mem orial [facility] Temperature Oral (F) 2023-05-05 17:45:50 98.4 F [facility] Height 2023-05-02 20:00:00 5 [ft_i] [facility] Weight 2023-05-02 20:00:00 [facility] BMI Calculated 2023-05-02 20:00:00 Mark islas Tay Systolic blood 2023-02-07 08:35:00 115 mm[Hg] [facility] Diastolic blood 2023-02-07 08:35:00 70 mm[Hg] [facility] Body temperature 2023-02-07 08:35:00 36.56 Melissa [facility] Respiratory rate 2023-02-07 08:35:00 18 /min [facility] Oxygen saturation in 2023-02-07 08:35:00 96 /min [facility] Arterial blood by Medical Ce [facility]ter Pulse oximetry Heart rate 2023-02-07 08:11:00 98 /min [facility] Body weight 2023-02-04 05:50:00 88.9 kg [facility] BMI 2023-02-04 05:50:00 35.85 kg/m2 [facility] Body height 2022-12-25 11:49:00 157.5 cm [facility] Heart rate 2022-10-25 10:57:00 92 /min [facility] Body temperature 2022-10-25 10:57:00 35.61 Melissa [facility] Respiratory rate 2022-10-25 10:57:00 18 /min [facility] Oxygen saturation in 2022-10-25 10:57:00 100 /min [facility] Arterial blood by Medical Ce [facility]ter Pulse oximetry Systolic blood 2022-10-25 10:57:00 120 mm[Hg] [facility] Diastolic blood 2022-10-25 10:57:00 63 mm[Hg] [facility] Body height 2022-10-22 05:49:00 157.5 cm [facility] Body weight 2022-10-22 05:49:00 96.48 kg [facility] BMI 2022-10-22 05:49:00 38.90 kg/m2 [facility] Procedures Procedure Date / Time Performing Source Performed Clinician [id number] 2023-03-11 [facility] [place] 00:00:00 [facility] EXTERNAL PROVIDER RECORDS 2023-03-10 Doctor Univer [facility]ity of 05:01:00 Unassigned, No [facility] [id number] 2023-03-09 PER [facility] [place] 00:00:00 [facility] EXTERNAL PROVIDER RECORDS 2023-02-28 Doctor Univer sity of 05:01:00 Unassigned, No [facility] CBC WITH DIFF 2023-02-21 Jennifer Carbone [place] of 16:25:00 [facility] MAGNESIUM 2023-02-21 Tona, [facility] of 16:24:00 [facility] BASIC METABOLIC PANEL (NA, K, CL, 2023-02-21 Jennifer Carbone [place] of CO2, GLUCOSE, BUN, CREATININE, CA) 16:24:00 [facility] CBC WITH DIFF 2023-02-19 Kristina Richardson [place] of 10:26:00 [facility] PREPARE PACKED RBC 2023-02-18 Jennifer Carbone [place] of 22:52:30 [facility] HB ABO GROUPING 2023-02-18 [facility] of 19:02:00 [facility] CBC WITH DIFF 2023-02-18 [facility] of 15:04:00 [facility] NEGIN AURIS CULTURE 2023-02-18 [facility] of 15:00:00 [facility] NEGIN AURIS SURVEILLANCE BY PCR 2023-02-18 [facility] of (INFECTION CONTROL PURPOSES) 15:00:00 [facility] TROPONIN I 2023-02-18 [facility] of 06:03:00 [facility] BASIC METABOLIC PANEL (NA, K, CL, 2023-02-18 [facility] of CO2, GLUCOSE, BUN, CREATININE, CA) 06:03:00 [facility] CBC WITH DIFF 2023-02-18 [facility] of 06:03:00 [facility] CT THORAX WO CONTRAST 2023-02-17 [facility] of 20:48:07 [facility] TROPONIN I 2023-02-17 [facility] 20:11:00 [facility] TRANSTHORACIC ECHO (TTE) COMPLETE 2023-02-17 Tona, [facility] of 16:05:00 [facility] TROPONIN I 2023-02-17 [facility] 10:38:00 [facility] OSMOLALITY, SERUM OR PLASMA 2023-02-17 [facility] of 05:42:00 [facility] BASIC METABOLIC PANEL (NA, K, CL, 2023-02-17 [facility] [place] [facility] CO2, GLUCOSE, BUN, CREATININE, CA) 05:42:00 [facility] EKG-12 LEAD 2023-02-17 [facility] [place] of 05:39:15 [facility] OSMOLALITY URINE 2023-02-17 Dafne Navarro [place] of 05:05:00 [facility] URINALYSIS 2023-02-17 [facility] [place] [facility] 05:05:00 [facility] CREATININE, URINE RANDOM 2023-02-17 Dafne Navarro [facility] ity of 05:05:00 [facility] SODIUM, URINE RANDOM 2023-02-17 [facility] [place] of 05:05:00 [facility] LIPASE 2023-02-17 [facility] of 03:26:00 [facility] TROPONIN I 2023-02-17 [facility] of 03:26:00 [facility] HEPATIC FUNCTION PANEL (54643) 2023-02-17 [facility] of (ALB,T.PRO,BILI 03:26:00 [facility],BU/BC,ALT,AST,ALK PHOS) Branch BASIC METABOLIC PANEL (NA, K, CL, 2023-02-17 [facility] of CO2, GLUCOSE, BUN, CREATININE, CA) 03:26:00 [facility] CBC WITH DIFF 2023-02-17 [facility] of 03:26:00 [facility] D-DIMER 2023-02-17 [facility] of 03:26:00 [facility] N-TERMINAL PRO-BNP 2023-02-17 [facility] of 03:26:00 [facility] XR CHEST 1 VW 2023-02-17 Melanie, [facility] of 03:09:33 [facility] COMPREHENSIVE METABOLIC PANEL 2023-02-07 Kristi[facility]Hadley[facility] 04:38:00 [facility] MAGNESIUM 2023-02-07 Jimmieey-Ittmann, [facility] 04:38:00 [facility] CBC W/PLT COUNT & AUTO 2023-02-07 Jimmieey-Ittmann[facility] DIFFERENTIAL 04:38:00 [facility] PT/APTT 2023-02-07 Murrey-Ittmann, [facility] 04:38:00 [facility] PHOSPHORUS 2023-02-07 Jimmieey-Ittmann, [facility] 04:38:00 [facility] LACTIC ACID, VENOUS 2023-02-07 Murrey-Ittmann, [facility] 04:38:00 [facility] CBC W/PLT COUNT & AUTO 2023-02-07 Murrey-Ittmann, [facility] DIFFERENTIAL 04:38:[address] [facility] CT ABDOMEN/PELVIS WITHOUT IV 2023-02-07 Jimmieey-Ittmann, [facility] CONTRAST 03:15:00 [facility] POCT-GLUCOSE METER 2023-02-[address] [facility] 11:33:00 [facility] POCT-GLUCOSE METER 2023-02-04 Summer, Lazaro [facility] 07:52:00 [facility] PT/APTT 2023-02-04 Wells, Anushka [facility] 05:49:00 [facility] MAGNESIUM 2023-02-04 West, Anushka [facility] 05:49:00 [facility] PHOSPHORUS 2023-02-04 West, Anushka [facility] 05:49:00 [facility] COMPREHENSIVE METABOLIC PANEL 2023-02-04 West, [facility]ushka [facility] 05:49:00 [facility] LACTATE DEHYDROGENASE (LDH) 2023-02-04 [facility], Carlos [facility] 05:49:00 [facility] HAPTOGLOBIN 2023-02-04 [facility], Carlos [facility] 05:49:00 [facility] CBC W/PLT COUNT & AUTO 2023-02-04 [facility], Carlos [facility] DIFFERENTIAL 05:49:00 [facility] CBC W/PLT COUNT & AUTO 2023-02-04 [facility], Carlos [facility] DIFFERENTIAL 05:49:00 [facility] PREPARE LEUKO-REDUCED RBC 2023-02-03 [facility], Nejcompadin [facility] 23:54:00 [facility] POCT-GLUCOSE METER 2023-02-03 [facility], Nejmudin [facility] 20:55:00 [facility] POCT-GLUCOSE METER 2023-02-03 [facility], Nejmudin [facility] 16:40:00 [facility] POCT-GLUCOSE METER 2023-02-03 [facility], Nejmudin [facility] 11:39:00 [facility] POCT-GLUCOSE METER 2023-02-03 [facility], Nejmudin [facility] 09:17:00 [facility] PT/APTT 2023-02-03 Wells, Anushka [facility] 05:26:00 [facility] MAGNESIUM 2023-02-03 West, Anushka [facility] 05:26:00 [facility] PHOSPHORUS 2023-02-03 Wells, Anushka [facility] 05:26:00 [facility] COMPREHENSIVE METABOLIC PANEL 2023-02-[address] [facility] 05:26:00 [facility] LACTATE DEHYDROGENASE (LDH) 2023-02-03 Sean, Carlos [facility] 05:26:00 [facility] HAPTOGLOBIN 2023-02-03 Sean, Carlos [facility] 05:26:00 [facility] CBC W/PLT COUNT & AUTO 2023-02-03 [facility], Carlos [facility] DIFFERENTIAL 05:26:00 [facility] CBC W/PLT COUNT & AUTO 2023-02-03 [facility], Carlos [facility] DIFFERENTIAL 05:26:00 [facility] POCT-GLUCOSE METER 2023-02-02 Summer, Nesimadin [facility] 20:23:00 [facility] POCT-GLUCOSE METER 2023-02-02 Summer, Nejmudin [facility] 16:21:00 [facility] TRANSFUSE LEUKO-REDUCED RED BLOOD 2023-02-02 [facility], Arben n [facility] CELLS 16:10:00 [facility] ANTIBODY IDENTIFICATION 2023-02-02 Summer, [facility]azaro [facility] 15:43:00 [facility] TYPE AND SCREEN, AUTOMATED 2023-02-02 SummerHavensmiadonovan [facility] 12:49:00 [facility] POCT-GLUCOSE METER 2023-02-02 Summer, Netirsomudin [facility] 12:08:00 [facility] POCT-GLUCOSE METER 2023-02-02 Summer, Netirsomudin [facility] 08:06:00 [facility] PT/APTT 2023-02-[address] [facility] 05:55:00 [facility] MAGNESIUM 2023-02-[address] [facility] 05:55:00 [facility] PHOSPHORUS 2023-02-[address] [facility] 05:55:00 [facility] COMPREHENSIVE METABOLIC PANEL 2023-02-02 [address] [facility] 05:55:00 [facility] LACTATE DEHYDROGENASE (LDH) 2023-02-02, Carlos [facility] 05:55:00 [facility] HAPTOGLOBIN 2023-02-02Sean, Carlos [facility] 05:55:00 [facility] CBC W/PLT COUNT & AUTO 2023-02-02Sean, Carlos [facility] DIFFERENTIAL 05:55:00 [facility] CBC W/PLT COUNT & AUTO 2023-02-02Sean, Carlos [facility] DIFFERENTIAL 05:55:00 [facility] POCT-GLUCOSE METER 2023-02-01, Carlos [facility] 21:04:00 [facility] POCT-GLUCOSE METER 2023-02-01Sean, Carlos [facility] 17:17:00 [facility] POCT-GLUCOSE METER 2023-02-01, Carlos [facility] 11:52:00 [facility] POCT-GLUCOSE METER 2023-02-01Sean, Carlos [facility] 08:04:00 [facility] PT/APTT 2023-02-01 Wells, Anushka [facility] 06:03:00 [facility] MAGNESIUM 2023-02-01 West, Anushka [facility] 06:03:00 [facility] PHOSPHORUS 2023-02-01 West, Anushka [facility] 06:03:00 [facility] COMPREHENSIVE METABOLIC PANEL 2023-02-01 West, Anushka [facility] 06:03:00 [facility] LACTATE DEHYDROGENASE (LDH) 2023-02-01Sean, Carlos [facility] 06:03:00 [facility] HAPTOGLOBIN 2023-02-01Sean, Carlos [facility] 06:03:00 [facility] CBC W/PLT COUNT & AUTO 2023-02-01Sean, Carlos [facility] DIFFERENTIAL 06:03:00 [facility] CBC W/PLT COUNT & AUTO 2023-02-01, Carlos [facility] DIFFERENTIAL 06:03:00 [facility] POCT-GLUCOSE METER 2023-01-31Sean, Carlos [facility] 21:12:00 [facility] POCT-GLUCOSE METER 2023-01-31 [facility], Carlos [facility] 15:33:00 [facility] IR TUNNELED CATHETER REMOVAL 2023-01-[address] [facility] 13:35:00 [facility] POCT-GLUCOSE METER 2023-01-31 [facility], Carlos [facility] 11:18:00 [facility] POCT-GLUCOSE METER 2023-01-31 [facility], Carlos [facility] 07:39:00 [facility] PT/APTT 2023-01-31 Wells, Anushka [facility] 04:45:00 [facility] MAGNESIUM 2023-01-31 Wells, Anushka [facility] 04:45:00 [facility] PHOSPHORUS 2023-01-31 Wells, Anushka [facility] 04:45:00 [facility] COMPREHENSIVE METABOLIC PANEL 2023-01-31 Wells, Anushka [facility] 04:45:00 [facility] LACTATE DEHYDROGENASE (LDH) 2023-01-31 [facility], Carlos [facility] 04:45:00 [facility] HAPTOGLOBIN 2023-01-31 [facility], Carlos [facility] 04:45:00 [facility] CBC W/PLT COUNT & AUTO 2023-01-31 [facility], Carlos [facility] DIFFERENTIAL 04:45:00 [facility] RETICULOCYTE COUNT 2023-01-[address] [facility] 04:[facility] CBC W/PLT COUNT & AUTO 2023-01-31 [facility], Carlos [facility] DIFFERENTIAL 04:45:00 [facility] POCT-GLUCOSE METER 2023-01-30 [facility], Carlos [facility] 21:31:00 [facility] POCT-GLUCOSE METER 2023-01-30 [facility], Carlos [facility] 15:50:00 [facility] POCT-GLUCOSE METER 2023-01-30 [facility], Carlos [facility] 11:20:00 [facility] POCT-GLUCOSE METER 2023-01-30 [facility], Carlos [facility] 07:31:00 [facility] PT/APTT 2023-01-30 Wells, Anushka [facility] 04:52:00 [facility] MAGNESIUM 2023-01-30 West, Anushka [facility] 04:52:00 [facility] PHOSPHORUS 2023-01-30 West, Anushka [facility] 04:52:00 [facility] COMPREHENSIVE METABOLIC PANEL 2023-01-30 West, Anushka [facility] 04:52:00 [facility] LACTATE DEHYDROGENASE (LDH) 2023-01-30 [facility], Carlos [facility] 04:52:00 [facility] HAPTOGLOBIN 2023-01-30 [facility], Carlos [facility] 04:52:00 [facility] CBC W/PLT COUNT & AUTO 2023-01-30 [facility], Carlos [facility] DIFFERENTIAL 04:52:00 [facility] CBC W/PLT COUNT & AUTO 2023-01-30 [facility], Carlos [facility] DIFFERENTIAL 04:52:00 [facility] (CELLAVISION MANUAL DIFF) 2023-01-30 [facility], Carlos [facility] 04:52:00 [facility] POCT-GLUCOSE METER 2023-01-29 [facility], Carlos [facility] 21:01:00 [facility] POCT-GLUCOSE METER 2023-01-29 [facility], Carlos [facility] 16:16:00 [facility] POCT-GLUCOSE METER 2023-01-29 [facility], Carlos [facility] 11:59:00 [facility] POCT-GLUCOSE METER 2023-01-29 [facility], Carlos [facility] 07:37:00 [facility] PT/APTT 2023-01-29 Wells, Anushka [facility] 05:38:00 [facility] MAGNESIUM 2023-01-29 West, Anushka [facility] 05:38:00 [facility] PHOSPHORUS 2023-01-29 West, Anushka [facility] 05:38:00 [facility] COMPREHENSIVE METABOLIC PANEL 2023-01-29 West, Anushka [facility] 05:38:00 [facility] LACTATE DEHYDROGENASE (LDH) 2023-01-29 [facility], Carlos [facility] 05:38:00 [facility] HAPTOGLOBIN 2023-01-29 Sean, Carlos [facility] 05:38:00 [facility] CBC W/PLT COUNT & AUTO 2023-01-29 [facility], Carlos [facility] DIFFERENTIAL 05:38:00 [facility] CALCIUM, IONIZED 2023-01-29 Richardson, Rustam [facility] 05:38:00 [facility] CBC W/PLT COUNT & AUTO 2023-01-29 [facility], Carlos [facility] DIFFERENTIAL 05:38:00 [facility] (CELLAVISION MANUAL DIFF) 2023-01-29 [facility], Carlos [facility] 05:38:00 [facility] POCT-GLUCOSE METER 2023-01-28 [facility], Carlos [facility] 21:48:00 [facility] POCT-GLUCOSE METER 2023-01-28 [facility], Carlos [facility] 15:42:00 [facility] SARS-COV2/RT-PCR ([facility]) 2023-01-28 [facility], Carlos [facility] 12:21:00 [facility] POCT-GLUCOSE METER 2023-01-28 [facility], Carlos [facility] 11:31:00 [facility] POCT-GLUCOSE METER 2023-01-28 [facility], Carlos [facility] 07:32:00 [facility] PT/APTT 2023-01-28 Wells, Anushka [facility] 05:42:00 [facility] MAGNESIUM 2023-01-28 West, Anushka [facility] 05:42:00 [facility] PHOSPHORUS 2023-01-28 West, Anushka [facility] 05:42:00 [facility] COMPREHENSIVE METABOLIC PANEL 2023-01-28 West, [facility] 05:42:00 [facility] LACTATE DEHYDROGENASE (LDH) 2023-01-28 [facility], Carlos [facility] 05:42:00 [facility] HAPTOGLOBIN 2023-01-28 Sean, Cralos [facility] 05:42:00 [facility] CBC W/PLT COUNT & AUTO 2023-01-28 Sean, Carlos [facility] DIFFERENTIAL 05:42:00 [facility] CALCIUM, IONIZED 2023-01-28 Richardson, Rustam [facility] 05:42:00 [facility] RETICULOCYTE COUNT 2023-01-[address] [facility] 05:42:[address] [facility] CBC W/PLT COUNT & AUTO 2023-01-28 Sean, Carlos [facility] DIFFERENTIAL 05:42:00 [facility] POCT-GLUCOSE METER 2023-01-27 [facility], Carlos [facility] 21:38:00 [facility] POCT-GLUCOSE METER 2023-01-27 [facility], Carlos [facility] 16:42:00 [facility] POCT-GLUCOSE METER 2023-01-27 [facility], Carlos [facility] 12:02:00 [facility] POCT-GLUCOSE METER 2023-01-27 [facility], Carlos [facility] 09:30:00 [facility] POCT-GLUCOSE METER 2023-01-27 [facility], Carlos [facility] 07:41:00 [facility] PT/APTT 2023-01-27 West, Anushka [facility] 05:20:00 [facility] MAGNESIUM 2023-01-27 West, Anushka [facility] 05:20:00 [facility] PHOSPHORUS 2023-01-27 West, Anushka [facility] 05:20:00 [facility] COMPREHENSIVE METABOLIC PANEL 2023-01-27 [place], [facility] 05:20:00 [facility] LACTATE DEHYDROGENASE (LDH) 2023-01-27 [facility], Carlos [facility] 05:20:00 [facility] HAPTOGLOBIN 2023-01-27 Sean, Acrlos [facility] 05:20:00 [facility] CALCIUM, IONIZED 2023-01-27 Richardson, Rustam [facility] 05:20:00 [facility] CBC W/PLT COUNT & AUTO 2023-01-27 Richardson, Rustam [facility] DIFFERENTIAL 05:20:00 [facility] CBC W/PLT COUNT & AUTO 2023-01-[address] [facility] DIFFERENTIAL 05:20:00 [facility] (CELLAVISION MANUAL DIFF) 2023-01-[address] [facility] 05:20:00 [facility] POCT-GLUCOSE METER 2023-01-26 [facility], Carlos [facility] 22:18:00 [facility] POCT-GLUCOSE METER 2023-01-26 [facility], Carlos [facility] 15:55:00 [facility] POCT-GLUCOSE METER 2023-01-26 [facility], Carlos [facility] 11:31:00 [facility] POCT-GLUCOSE METER 2023-01-26 [facility], Carlos [facility] 07:57:00 [facility] POCT-GLUCOSE METER 2023-01-26 [facility], Carlos [facility] 07:33:00 [facility] PT/APTT 2023-01-[address] [facility] 05:09:00 [facility] INCUBATED 1:1 MIXING STUDY 2023-01-[address] [facility] 05:09:00 [facility] MAGNESIUM 2023-01-26 West, Anushka [facility] 04:38:00 [facility] PHOSPHORUS 2023-01-26 West, Anushka [facility] 04:38:00 [facility] COMPREHENSIVE METABOLIC PANEL 2023-01-[address] [facility] 04:38:00 [facility] LACTATE DEHYDROGENASE (LDH) 2023-01-26 [facility], Carlos [facility] 04:38:00 [facility] HAPTOGLOBIN 2023-01-26 [facility], Carlos [facility] 04:38:00 [facility] CBC W/PLT COUNT & AUTO 2023-01-[address] [facility] DIFFERENTIAL 04:38:00 [facility] CALCIUM, IONIZED 2023-01-[address] [facility] 04:38:00 [facility] B-TYPE NATRIURETIC FACTOR (BNP) 2023-01-[address] [facility] 04:38:00 [facility] RETICULOCYTE COUNT 2023-01-[address] [facility] 04:38:00 [facility] BILIRUBIN, DIRECT 2023-01-[address] [facility] 04:38:00 [facility] CBC W/PLT COUNT & AUTO 2023-01-[address] [facility] DIFFERENTIAL 04:38:00 [facility] (CELLAVISION MANUAL DIFF) 2023-01-[address] [facility] 04:38:00 [facility] POCT-GLUCOSE METER 2023-01-25 Sean, Carlos [facility] 22:03:00 [facility] APTT 2023-01-[address] [facility] 18:54:00 [facility] INCUBATED 1:1 MIXING STUDY 2023-01-[address] [facility] 18:54:00 [facility] PROTHROMBIN TIME/INR 2023-01-[address] [facility] 18:54:00 [facility] POCT-GLUCOSE METER 2023-01-25 Sean, Carlos [facility] 16:16:00 [facility] ANAEROBIC CULTURE 2023-01-[address] [facility] 15:42:00 [facility] FUNGUS CULTURE + SMEAR 2023-01-[address] [facility] 15:42:00 [facility] GLUCOSE PERITONEAL FLUID 2023-01-[address] [facility] 15:40:00 [facility] BODY FLUID CULTURE + GRAM STAIN 2023-01-25 Sean, Carlos [facility] 15:40:00 [facility] LACTATE DEHYDROGENASE (LDH), BODY 2023-01-25 [facility], Carlos [facility] FLUID 15:40:00 [facility] PROTEIN, BODY FLUID 2023-01-25 [facility], Carlos [facility] 15:40:00 [facility] BODY FLUID CELL COUNT WITH 2023-01-25 Sean, [facility] DIFFERENTIAL 15:40:00 [facility] CYTOLOGY 2023-01-25 Sean, Carlos [facility] 15:39:00 [facility] POCT-GLUCOSE METER 2023-01-25 Sean, Carlos [facility] 12:00:00 [facility] POCT-GLUCOSE METER 2023-01-25 Sean, Carlos [facility] 08:44:00 [facility] APTT 2023-01-25 West, Anushka [facility] 06:37:00 [facility] CALCIUM, IONIZED 2023-01-25 [place], [facility] 05:34:00 [facility] PT/APTT 2023-01-25 West, Anushka [facility] 05:23:00 [facility] MAGNESIUM 2023-01-25 West, Anushka [facility] 05:23:00 [facility] PHOSPHORUS 2023-01-25 [place], Anushka [facility] 05:23:00 [facility] COMPREHENSIVE METABOLIC PANEL 2023-01-25 [place], Anushka [facility] 05:23:00 [facility] CBC W/PLT COUNT & AUTO 2023-01-[address] [facility] DIFFERENTIAL 05:23:00 [facility] LACTATE DEHYDROGENASE (LDH) 2023-01-25 [facility], Carlos [facility] 05:23:00 [facility] RETICULOCYTE COUNT 2023-01-[address] [facility] 05:23:00 [facility] CBC W/PLT COUNT & AUTO 2023-01-[address] [facility] DIFFERENTIAL 05:23:00 [facility] US PARACENTESIS 2023-01-[address] [facility] 03:50:00 [facility] POCT-GLUCOSE METER 2023-01-24 [facility], Carlos [facility] 20:56:00 [facility] CT ABDOMEN/PELVIS WITHOUT IV 2023-01-24 [facility], Carlos [facility] CONTRAST 19:32:00 [facility] POCT-GLUCOSE METER 2023-01-24 [facility], Carlos [facility] 15:53:00 [facility] POCT-GLUCOSE METER 2023-01-24 [facility], Carlos [facility] 11:41:00 [facility] XR CHEST 1 VIEW PORTABLE / BEDSIDE 2023-01-[address] [facility] 09:10:00 [facility] POCT-GLUCOSE METER 2023-01-24 Ramesh, Liv [facility] 07:31:00 [facility] PT/APTT 2023-01-24 West, Anushka [facility] 03:57:00 [facility] MAGNESIUM 2023-01-24 West, Anushka [facility] 03:57:00 [facility] PHOSPHORUS 2023-01-24 West, Anushka [facility] 03:57:00 [facility] COMPREHENSIVE METABOLIC PANEL 2023-01-24 [place], [facility]ushka [facility] 03:57:00 [facility] HAPTOGLOBIN 2023-01-24 Fosso, Chimi [facility] 03:57:00 [facility] LACTATE DEHYDROGENASE (LDH) 2023-01-24 Fosso, Chimi [facility] 03:57:00 [facility] CALCIUM, IONIZED 2023-01-[address] [facility] 03:57:00 [facility] CBC W/PLT COUNT & AUTO 2023-01-[address] [facility] DIFFERENTIAL 03:57:00 [facility] CBC W/PLT COUNT & AUTO 2023-01-[address] [facility] DIFFERENTIAL 03:57:00 [facility] (CELLAVISION MANUAL DIFF) 2023-01-[address] [facility] 03:57:00 [facility] POCT-GLUCOSE METER 2023-01-23 Ramesh, Liv [facility] 20:33:00 [facility] POCT-GLUCOSE METER 2023-01-23 Ramesh, Liv [facility] 15:29:00 [facility] POCT-GLUCOSE METER 2023-01-23 Ramesh, Liv [facility] 11:19:00 [facility] POCT-GLUCOSE METER 2023-01-23 Ramesh, Liv [facility] 07:28:00 [facility] PT/APTT 2023-01-23 West, Anushka [facility] 06:01:00 [facility] MAGNESIUM 2023-01-23 West, Anushka [facility] 06:01:00 [facility] PHOSPHORUS 2023-01-23 West, Anushka [facility] 06:01:00 [facility] COMPREHENSIVE METABOLIC PANEL 2023-01-[address] [facility] 06:01:00 [facility] CBC W/PLT COUNT & AUTO 2023-01-[address] [facility] DIFFERENTIAL 06:01:00 [facility] CBC W/PLT COUNT & AUTO 2023-01-[address] [facility] DIFFERENTIAL 06:01:00 [facility] (CELLAVISION MANUAL DIFF) 2023-01-[address] [facility] 06:01:00 [facility] POCT-GLUCOSE METER 2023-01-22 Ramesh, Liv [facility] 20:55:00 [facility] HEMODIALYSIS INPATIENT 2023-01-[address] [facility] 18:55:00 [facility] POCT-GLUCOSE METER 2023-01-22 Ramesh, Liv [facility] 11:47:00 [facility] POCT-GLUCOSE METER 2023-01-22 Ramesh, Liv [facility] 08:38:00 [facility] POCT-GLUCOSE METER 2023-01-22 Ramesh, Liv [facility] 07:35:00 [facility] PT/APTT 2023-01-[address] [facility] 06:20:00 [facility] MAGNESIUM 2023-01-[address] [facility] 06:20:00 [facility] PHOSPHORUS 2023-01-[address] [facility] 06:20:00 [facility] COMPREHENSIVE METABOLIC PANEL 2023-01-[address] [facility] 06:20:00 [facility] CBC (HEMOGRAM ONLY) 2023-01-[address] [facility] 06:20:00 [facility] PREPARE RBC 2023-01-21 Ramesh, Liv [facility] 23:54:00 [facility] POCT-GLUCOSE METER 2023-01-21 Ramesh, Liv [facility] 21:29:00 [facility] POCT-GLUCOSE METER 2023-01-21 Ramesh, Liv [facility] 15:35:00 [facility] POCT-GLUCOSE METER 2023-01-21 Ramesh, Liv [facility] 11:17:00 [facility] POCT-GLUCOSE METER 2023-01-21 Ramesh, Liv [facility] 07:34:00 [facility] HAPTOGLOBIN 2023-01-21 Fosso, Chimi [facility] 05:54:00 [facility] LACTATE DEHYDROGENASE (LDH) 2023-01-21 Fosso, Chimi [facility] 05:54:00 [facility] RETICULOCYTE COUNT 2023-01-21 Fosso, Chimi [facility] 05:54:00 [facility] PT/APTT 2023-01-[address] [facility] 05:54:00 [facility] MAGNESIUM 2023-01-[address] [facility] 05:54:00 [facility] PHOSPHORUS 2023-01-[address] [facility] 05:54:00 [facility] COMPREHENSIVE METABOLIC PANEL 2023-01-21 [address] [facility] 05:54:00 [facility] CALCIUM, IONIZED 2023-01-[address] [facility] 05:54:00 [facility] CBC W/PLT COUNT & AUTO 2023-01-[address] [facility] DIFFERENTIAL 05:54:00 [facility] CBC W/PLT COUNT & AUTO 2023-01-[address] [facility] DIFFERENTIAL 05:54:00 [facility] POCT-GLUCOSE METER 2023-01-20 Ramesh, Liv [facility] 23:25:00 [facility] HEMODIALYSIS INPATIENT 2023-01-[address] [facility] 21:26:15 [facility] XR CHEST 1 VIEW PORTABLE / BEDSIDE 2023-01-[address] [facility] 20:02:00 [facility] [place] FLUORO NON-SPECIFIC UP TO 1 2023-01-[address] [facility] HOUR 18:40:00 [facility] INSERTION, CATHETER, DIALYSIS 2023-01-[address] [facility] 16:14:00 [facility] XR CHEST 1 VIEW PORTABLE / BEDSIDE 2023-01-20 Ramesh, Liv [facility] 15:18:00 [facility] POCT-GLUCOSE METER 2023-01-20 Ramesh, Liv [facility] 11:34:00 [facility] TRANSFUSE LEUKO-REDUCED RED BLOOD 2023-01-[address] [facility] CELLS 10:45:00 [facility] POCT-GLUCOSE METER 2023-01-20 Ramesh, Liv [facility] 07:42:00 [facility] PREPARE LEUKO-REDUCED RBC 2023-01-[address] [facility] 07:22:00 [facility] PT/APTT 2023-01-[address] [facility] 03:10:00 [facility] MAGNESIUM 2023-01-20 West, Anushka [facility] 03:10:00 [facility] PHOSPHORUS 2023-01-20 West, Anushka [facility] 03:10:00 [facility] COMPREHENSIVE METABOLIC PANEL 2023-01-[address] [facility] 03:10:00 [facility] CALCIUM, IONIZED 2023-01-[address] [facility] 03:10:00 [facility] CBC W/PLT COUNT & AUTO 2023-01-[address] [facility] DIFFERENTIAL 03:10:00 [facility] CBC W/PLT COUNT & AUTO 2023-01-20 Richardson, Rustam [facility] DIFFERENTIAL 03:10:00 [facility] POCT-GLUCOSE METER 2023-01-19 Ramesh, Liv [facility] 20:55:00 [facility] HCG, QUANTITATIVE, 2023-01-[address] [facility] 18:31:00 [facility] POCT-GLUCOSE METER 2023-01-19 Ramesh, Liv [facility] 16:06:00 [facility] ANTIBODY IDENTIFICATION 2023-01-19 Ramesh, Liv [facility] 15:59:00 [facility] POCT-GLUCOSE METER 2023-01-19 Ramesh, Liv [facility] 11:38:00 [facility] POCT-GLUCOSE METER 2023-01-19 Ramesh, Liv [facility] 07:48:00 [facility] CBC (HEMOGRAM ONLY) 2023-01-[address] [facility] 06:09:00 [facility] PT/APTT 2023-01-19 West, Anushka [facility] 05:02:00 [facility] MAGNESIUM 2023-01-19 West, Anushka [facility] 05:02:00 [facility] PHOSPHORUS 2023-01-19 [place], Anushka [facility] 05:02:00 [facility] COMPREHENSIVE METABOLIC PANEL 2023-01-19 [place], [facility] 05:02:00 [facility] TYPE AND SCREEN, AUTOMATED 2023-01-19 Karen Mario [facility] 05:02:00 [facility] POCT-GLUCOSE METER 2023-01-18 Ramesh, Liv [facility] 21:00:00 [facility] POCT-GLUCOSE METER 2023-01-18 Ramesh, Liv [facility] 17:42:00 [facility] HEMODIALYSIS INPATIENT 2023-01-[address] [facility] 17:00:17 [facility] LACTATE DEHYDROGENASE (LDH) 2023-01-18 Fosso, Chimi [facility] 15:55:00 [facility] RETICULOCYTE COUNT 2023-01-18 Fosso, Chimi [facility] 15:55:00 [facility] HEMODIALYSIS INPATIENT 2023-01-[address] [facility] 14:45:35 [facility] POCT-GLUCOSE METER 2023-01-18 Ramesh, Liv [facility] 12:24:00 [facility] HEPATITIS B SURFACE ANTIGEN 2023-01-[address] [facility] 11:41:00 [facility] HAPTOGLOBIN 2023-01-18 Fosso, Chimi [facility] 11:41:00 [facility] POCT-GLUCOSE METER 2023-01-18 Armesh, Liv [facility] 08:20:00 [facility] PT/APTT 2023-01-18 West, Anushka [facility] 04:18:00 [facility] MAGNESIUM 2023-01-18 West, Anushka [facility] 04:18:00 [facility] PHOSPHORUS 2023-01-18 West, Anushka [facility] 04:18:00 [facility] COMPREHENSIVE METABOLIC PANEL 2023-01-18 West, Anushka [facility] 04:18:00 [facility] CALCIUM, IONIZED 2023-01-[address] [facility] 04:18:00 [facility] CBC W/PLT COUNT & AUTO 2023-01-18 Richardson, Rustam [facility] DIFFERENTIAL 04:18:00 [facility] CBC W/PLT COUNT & AUTO 2023-01-18 Richardson, Rustam [facility] DIFFERENTIAL 04:18:00 [facility] POCT-GLUCOSE METER 2023-01-17 Ramesh, Liv [facility] 20:45:00 [facility] POCT-GLUCOSE METER 2023-01-17 Ramesh, Liv [facility] 15:37:00 [facility] POCT-GLUCOSE METER 2023-01-17 Ramesh, Liv [facility] 11:14:00 [facility] POCT-GLUCOSE METER 2023-01-17 Ramesh, Liv [facility] 07:29:00 [facility] PT/APTT 2023-01-17 West, Anushka [facility] 05:25:00 [facility] MAGNESIUM 2023-01-17 [place], Anushka [facility] 05:25:00 [facility] PHOSPHORUS 2023-01-17 [place], Anushka [facility] 05:25:00 [facility] COMPREHENSIVE METABOLIC PANEL 2023-01-17 [place], [facility] 05:25:00 [facility] CBC (HEMOGRAM ONLY) 2023-01-[address] [facility] 05:25:00 [facility] PREPARE RBC 2023-01-17 Haven Garciahal Berrios [facility] 04:18:00 [facility] POCT-GLUCOSE METER 2023-01-16 Jose Dorota Berrios [facility] 20:50:00 [facility] POCT-GLUCOSE METER 2023-01-16 Jose Dorota Berrios [facility] 15:53:00 [facility] POCT-GLUCOSE METER 2023-01-16 Jose Dorota Berrios [facility] 11:28:00 [facility] XR CHEST 1 VIEW PORTABLE / BEDSIDE 2023-01-16 Sridevi Samuels i [facility] 08:43:00 [facility] POCT-GLUCOSE METER 2023-01-16 Dorota Garcia Berrios [facility] 07:26:00 [facility] PT/APTT 2023-01-16 West, Anushka [facility] 05:52:00 [facility] MAGNESIUM 2023-01-16 West, Anushka [facility] 05:52:00 [facility] PHOSPHORUS 2023-01-16 West, Anushka [facility] 05:52:00 [facility] COMPREHENSIVE METABOLIC PANEL 2023-01-16 West, Anushka [facility] 05:52:00 [facility] CBC (HEMOGRAM ONLY) 2023-01-16 Haven Garciaradha Berrios [facility] 05:52:00 [facility] POCT-GLUCOSE METER 2023-01-15 Haven Garciaradha Beardel [facility] 21:03:00 [facility] POCT-GLUCOSE METER 2023-01-15 Haven Garciahal Berrios [facility] 17:04:00 [facility] HEMODIALYSIS INPATIENT 2023-01-[address] [facility] 14:10:01 [facility] POCT-GLUCOSE METER 2023-01-15 Haven Garciaradha Beardel [facility] 12:32:00 [facility] POCT-GLUCOSE METER 2023-01-15 Jose Dorota Berrios [facility] 08:03:00 [facility] PT/APTT 2023-01-15 West, Anushka [facility] 06:33:00 [facility] MAGNESIUM 2023-01-15 West, Anushka [facility] 06:33:00 [facility] PHOSPHORUS 2023-01-15 West, Anushka [facility] 06:33:00 [facility] COMPREHENSIVE METABOLIC PANEL 2023-01-15 [place], [facility] 06:33:00 [facility] CALCIUM, IONIZED 2023-01-[address] [facility] 06:33:00 [facility] CBC W/PLT COUNT & AUTO 2023-01-[address] [facility] DIFFERENTIAL 06:33:00 [facility] CBC W/PLT COUNT & AUTO 2023-01-[address] [facility] DIFFERENTIAL 06:33:00 [facility] POCT-GLUCOSE METER 2023-01-14 Jose Dorota Berrios [facility] 21:49:00 [facility] POCT-GLUCOSE METER 2023-01-14 Jose Dorota Berrios [facility] 16:52:00 [facility] POCT-GLUCOSE METER 2023-01-14 [address] Beardel [facility] 12:12:00 [facility] BLOOD CULTURE 2023-01-14 Haven Garciaradha Beardel [facility] 09:08:00 [facility] POCT-GLUCOSE METER 2023-01-14 Jose Dorota Berrios [facility] 08:33:00 [facility] PT/APTT 2023-01-[address] [facility] 05:08:00 [facility] MAGNESIUM 2023-01-[address] [facility] 05:08:00 [facility] PHOSPHORUS 2023-01-[address] [facility] 05:08:00 [facility] COMPREHENSIVE METABOLIC PANEL 2023-01-[address] [facility] 05:08:00 [facility] CBC (HEMOGRAM ONLY) 2023-01-14 Dorota Garcia [facility]rios [facility] 05:08:00 [facility] POCT-GLUCOSE METER 2023-01-13 Haven Garciaradha Berrios [facility] 23:36:00 [facility] BLOOD CULTURE 2023-01-[address] [facility] 19:47:00 [facility] B-TYPE NATRIURETIC FACTOR (BNP) 2023-01-[address] [facility] 19:47:00 [facility] HEMODIALYSIS INPATIENT 2023-01-[address] [facility] 19:42:09 [facility] POCT-GLUCOSE METER 2023-01-13 Dorota Garcia Berrios [facility] 17:45:00 [facility] B-TYPE NATRIURETIC FACTOR (BNP) 2023-01-13 Dorota Garcia Vernon l [facility] 17:39:00 [facility] ANTIBODY IDENTIFICATION 2023-01-13 Haven Graciahal Berrios [facility] 15:47:00 [facility] POCT-GLUCOSE METER 2023-01-13 Dorota Garcia Agustina [facility] 11:52:00 [facility] POCT-GLUCOSE METER 2023-01-13 Jose Dorota Berrios [facility] 08:06:00 [facility] XR CHEST 1 VIEW PORTABLE / BEDSIDE 2023-01-13 Dorota Garcia sandrine [facility] 07:34:00 [facility] PT/APTT 2023-01-[address] [facility] 04:12:00 [facility] MAGNESIUM 2023-01-[address] [facility] 04:12:00 [facility] PHOSPHORUS 2023-01-[address] [facility] 04:12:00 [facility] COMPREHENSIVE METABOLIC PANEL 2023-01-[address] [facility] 04:12:00 [facility] CALCIUM, IONIZED 2023-01-[address] [facility] 04:12:00 [facility] CBC W/PLT COUNT & AUTO 2023-01-[address] [facility] DIFFERENTIAL 04:12:00 [facility] TYPE AND SCREEN, AUTOMATED 2023-01-13 Dorota Garcia Agustina [facility] 04:12:00 [facility] CBC W/PLT COUNT & AUTO 2023-01-[address] [facility] DIFFERENTIAL 04:12:00 [facility] POCT-GLUCOSE METER 2023-01-12 Haven Garciahal Berrios [facility] 21:34:00 [facility] POCT-GLUCOSE METER 2023-01-12 Dorota Garcia Berrios [facility] 16:16:00 [facility] POCT-GLUCOSE METER 2023-01-12 Haven Garciahal Berrios [facility] 12:16:00 [facility] POCT-GLUCOSE METER 2023-01-12 Haven Garciahal Berrios [facility] 07:32:00 [facility] XR CHEST 1 VIEW PORTABLE / BEDSIDE 2023-01-[address] [facility] 07:25:00 [facility] [facility] PREPARE LEUKO-REDUCED RBC 2023-01-[address] [facility] 06:59:00 [facility] PT/APTT 2023-01-[address] [facility] 04:16:00 [facility] MAGNESIUM 2023-01-12 West, Anushka [facility] 04:16:00 [facility] PHOSPHORUS 2023-01-12 West, Anushka [facility] 04:16:00 [facility] COMPREHENSIVE METABOLIC PANEL 2023-01-12 West, Anushka [facility] 04:16:00 [facility] CBC (HEMOGRAM ONLY) 2023-01-12 West, Anushka [facility] 04:16:00 [facility] RETICULOCYTE COUNT 2023-01-12 Fosso, Chimi [facility] 04:16:00 [facility] POCT-GLUCOSE METER 2023-01-11 Li, Azucena [facility] 21:04:00 [facility] POCT-GLUCOSE METER 2023-01-11 Li, Azucena [facility] 12:19:00 [facility] POCT-GLUCOSE METER 2023-01-11 Li, Azucena [facility] 08:05:00 [facility] XR CHEST 1 VIEW PORTABLE / BEDSIDE 2023-01-11 West, Anushka [facility] 06:54:00 [facility] PT/APTT 2023-01-11 West, Anushka [facility] 04:40:00 [facility] MAGNESIUM 2023-01-11 West, Anushka [facility] 04:40:00 [facility] PHOSPHORUS 2023-01-11 West, Anushka [facility] 04:40:00 [facility] COMPREHENSIVE METABOLIC PANEL 2023-01-11 West, Anushka [facility] 04:40:00 [facility] CALCIUM, IONIZED 2023-01-11 Richardson, Rustam [facility] 04:40:00 [facility] CBC W/PLT COUNT & AUTO 2023-01-11 Richardson, Rustam [facility] 04:40:00 [facility] CBC W/PLT COUNT & AUTO 2023-01-11 Richardson, Rustam [facility] 04:40:00 [facility] POCT-GLUCOSE METER 2023-01-10 Li, Azucena [facility] 20:37:00 [facility] POCT-GLUCOSE METER 2023-01-10 Li, Azucena [facility] 17:25:00 [facility] ECG 12-LEAD 2023-01-[address] [facility] 14:23:59 [facility] HEMODIALYSIS INPATIENT 2023-01-[address] [facility] 14:20:14 [facility] POCT-GLUCOSE METER 2023-01-10 Li, Azucena [facility] 11:22:00 [facility] POCT-GLUCOSE METER 2023-01-10 Li, Azucena [facility] 08:10:00 [facility] ECG 12-LEAD 2023-01-[address] [facility] 07:32:31 [facility] XR CHEST 1 VIEW PORTABLE / BEDSIDE 2023-01-10 West, Anushka [facility] 05:27:00 [facility] PT/APTT 2023-01-10 West, Anushka [facility] 05:18:00 [facility] MAGNESIUM 2023-01-10 West, Anushka [facility] 05:18:00 [facility] PHOSPHORUS 2023-01-10 West, Anushka [facility] 05:18:00 [facility] COMPREHENSIVE METABOLIC PANEL 2023-01-10 West, Anushka [facility] 05:18:00 [facility] CBC (HEMOGRAM ONLY) 2023-01-10 West, Anushka [facility] 05:18:00 [facility] APTT 2023-01-10 West, Anushka [facility] 05:18:00 [facility] PREPARE RBC 2023-01-09 Jen, Azucena [facility] 23:54:00 [facility] POCT-GLUCOSE METER 2023-01-09 Jen, Azucena [facility] 20:52:00 [facility] APTT 2023-01-09 West, Anushka [facility] 20:35:00 [facility] CT BRAIN WITHOUT IV CONTRAST 2023-01-09 Jen, Azucena [facility] 20:15:00 [facility] CBC W/PLT COUNT & AUTO 2023-01-09 Li, Azucena [facility] 19:19:00 [facility] CBC W/PLT COUNT & AUTO 2023-01-09 Jen, Azucena [facility] 19:19:00 [facility] POCT-GLUCOSE METER 2023-01-09 Li, Azucena [facility] 18:11:00 [facility] POCT-GLUCOSE METER 2023-01-09 Li, Azucena [facility] 16:15:00 [facility] POCT-GLUCOSE METER 2023-01-09 Li, Azucena [facility] 12:09:00 [facility] ANTIBODY IDENTIFICATION 2023-01-09 Li, [facility]ucena [facility] 11:55:00 [facility] POCT-GLUCOSE METER 2023-01-09 Li, Azucena [facility] 08:15:00 [facility] PT/APTT 2023-01-09 Dajuan, Anushka [facility] 06:01:00 [facility] MAGNESIUM 2023-01-09 West, Anushka [facility] 06:01:00 [facility] PHOSPHORUS 2023-01-09 West, Anushka [facility] 06:01:00 [facility] COMPREHENSIVE METABOLIC PANEL 2023-01-09 [facility]uan[facility] 06:01:00 [facility] CBC (HEMOGRAM ONLY) 2023-01-09 Dajuan, Anushka [facility] 06:01:00 [facility] XR CHEST 1 VIEW PORTABLE / BEDSIDE 2023-01-09 Dajuan, Anushka [facility] 05:46:00 [facility] POCT-GLUCOSE METER 2023-01-08 Li, Azucena [facility] 21:27:00 [facility] POCT-GLUCOSE METER 2023-01-08 Li, Azucena [facility] 16:07:00 [facility] TRANSFUSE LEUKO-REDUCED RED BLOOD 2023-01-[address] [facility] CELLS 13:39:00 [facility] POCT-GLUCOSE METER 2023-01-08 Li, Azucena [facility] 11:47:00 [facility] HAPTOGLOBIN 2023-01-08 Fosso, Chimi [facility] 11:24:00 [facility] TYPE AND SCREEN, AUTOMATED 2023-01-08 Karen Mario [facility] 11:24:00 [facility] POCT-GLUCOSE METER 2023-01-08 Li, Azucena [facility] 07:44:00 [facility] XR CHEST 1 VIEW PORTABLE / BEDSIDE 2023-01-[address] [facility] 07:11:00 [facility] MAGNESIUM 2023-01-08 West, Anushka [facility] 06:37:00 [facility] PHOSPHORUS 2023-01-08 West, Anushka [facility] 06:37:00 [facility] COMPREHENSIVE METABOLIC PANEL 2023-01-08 [address]ff [facility] 06:37:00 [facility] CBC (HEMOGRAM ONLY) 2023-01-[address] [facility] 06:37:00 [facility] LACTATE DEHYDROGENASE (LDH) 2023-01-08 Fosso, Chimi [facility] 06:37:00 [facility] RETICULOCYTE COUNT 2023-01-08 Fosso, Chimi [facility] 06:37:00 [facility] POCT-GLUCOSE METER 2023-01-08 Li, Azucena [facility] 00:54:00 [facility] APTT 2023-01-08 Dajuan, Anushka [facility] 00:50:00 [facility] PT/APTT 2023-01-08 Dajuan, Anushka [facility] 00:50:00 [facility] POCT-GLUCOSE METER 2023-01-07 Li, Azucena [facility] 19:13:00 [facility] APTT 2023-01-07 Dajuan, Anushka [facility] 17:59:00 [facility] CBC (HEMOGRAM ONLY) 2023-01-[address] [facility] 15:16:00 [facility] APTT 2023-01-[address] [facility] 15:16:00 [facility] POCT-GLUCOSE METER 2023-01-07 Li, Azucena [facility] 13:28:00 [facility] HEMODIALYSIS INPATIENT 2023-01-[address] [facility] 11:35:00 [facility] LIMITED 2D ECHOCARDIOGRAM 2023-01-07 Ping Martin [facility] 09:10:00 [facility] POCT-GLUCOSE METER 2023-01-[address] [facility] 07:09:00 [facility] PREPARE LEUKO-REDUCED RBC 2023-01-[address] [facility] 07:06:00 [facility] PREPARE RBC 2023-01-[address] [facility] 07:06:00 [facility] CBC (HEMOGRAM ONLY) 2023-01-[address] [facility] 06:15:00 [facility] APTT 2023-01-07 Dajuan, Anushka [facility] 06:15:00 [facility] XR CHEST 1 VIEW PORTABLE / BEDSIDE 2023-01-[address] [facility] 04:33:00 [facility] MAGNESIUM 2023-01-[address] [facility] 01:29:00 [facility] PHOSPHORUS 2023-01-07 West, Anushka [facility] 01:29:00 [facility] COMPREHENSIVE METABOLIC PANEL 2023-01-07 Anush[address]ff [facility] 01:29:00 [facility] VANCOMYCIN LEVEL, RANDOM 2023-01-[address] [facility] 01:29:00 [facility] PT/APTT 2023-01-07 Dajuan, Anushka [facility] 01:28:00 [facility] APTT 2023-01-[address] [facility] 01:28:00 [facility] POCT-GLUCOSE METER 2023-01-[address] [facility] 23:23:00 [facility] APTT 2023-01-[address] [facility] 23:17:00 [facility] APTT 2023-01-[address] [facility] 17:50:00 [facility] CBC W/PLT COUNT & AUTO 2023-01-[address] [facility] DIFFER[facility] 17:50:00 [facility] CBC W/PLT COUNT & AUTO 2023-01-[address] [facility] DIFFER[facility] 17:50:00 [facility] POCT-GLUCOSE METER 2023-01-[address] [facility] 16:12:00 [facility] CONT WAVE PULSED DOPPLER 2023-01-[address] [facility] 14:06:42 [facility] POCT-GLUCOSE METER 2023-01-[address] [facility] 11:20:00 [facility] APTT 2023-01-[address] [facility] 09:36:00 [facility] POCT-GLUCOSE METER 2023-01-[address] [facility] 05:45:00 [facility] XR CHEST 1 VIEW PORTABLE / BEDSIDE 2023-01-[address] [facility] 05:12:00 [facility] LACTATE DEHYDROGENASE (LDH) 2023-01-[address] Bryan [facility] 03:52:00 [facility] HAPTOGLOBIN 2023-01-06 Kee Youmna A [facility] 03:52:00 [facility] RETICULOCYTE COUNT 2023-01-06 Abel Sweetmna A [facility] 03:52:00 [facility] PT/APTT 2023-01-[address] [facility] 03:52:00 [facility] FIBRINOGEN 2023-01-06 Abel Sweetmna A [facility] 03:52:00 [facility] MAGNESIUM 2023-01-[address] [facility] 03:52:00 [facility] PHOSPHORUS 2023-01-[address] [facility] 03:52:00 [facility] COMPREHENSIVE METABOLIC PANEL 2023-01-06 An[address] Gra[address] [facility] 03:52:00 [facility] CBC W/PLT COUNT & AUTO 2023-01-[address] [facility]FFER[facility] 03:52:00 [facility] VANCOMYCIN LEVEL, RANDOM 2023-01-[address] [facility] 03:52:00 [facility] CBC W/PLT COUNT & AUTO 2023-01-06 Sesar, Roger [facility] 03:52:00 [facility] POCT-GLUCOSE METER 2023-01-[address] [facility] 00:30:00 [facility] APTT 2023-01-[address] [facility] 22:57:00 [facility] POCT-GLUCOSE METER 2023-01-[address] [facility] 16:20:00 [facility] XR CHEST 1 VIEW PORTABLE / BEDSIDE 2023-01-[address] [facility] 15:55:00 [facility] US GUIDE, VASCULAR ACCESS 2023-01-[address] [facility] 15:28:08 [facility] APTT 2023-01-[address] [facility] 15:19:00 [facility] POCT-GLUCOSE METER 2023-01-[address] [facility] 11:10:00 [facility] CBC W/PLT COUNT & AUTO 2023-01-[address] [facility] DIFFERENTIAL 09:41:00 [facility] CBC W/PLT COUNT & AUTO 2023-01-05 [facility] 09:41:00 [facility] VANCOMYCIN LEVEL, RANDOM 2023-01-[address] [facility] 08:35:00 [facility] APTT 2023-01-[address] [facility] 08:35:00 [facility] TRANSFUSE LEUKO-REDUCED RED BLOOD 2023-01-[address] [facility] CELLS 06:40:00 [facility] POCT-GLUCOSE METER 2023-01-[address] [facility] 05:45:00 [facility] XR CHEST 1 VIEW PORTABLE / BEDSIDE 2023-01-[address] [facility] 05:12:00 [facility] LACTATE DEHYDROGENASE (LDH) 2023-01-05 Kee Abelmna A [facility] 03:51:00 [facility] HAPTOGLOBIN 2023-01-05 Kee Abelmna A [facility] 03:51:00 [facility] RETICULOCYTE COUNT 2023-01-05 Abel Sweetmna A [facility] 03:51:00 [facility] PT/APTT 2023-01-[address] [facility] 03:51:00 [facility] FIBRINOGEN 2023-01-05 KeeAbel contrerasmna A [facility] 03:51:00 [facility] MAGNESIUM 2023-01-[address] [facility] 03:51:00 [facility] PHOSPHORUS 2023-01-05 West, Anushka [facility] 03:51:00 [facility] COMPREHENSIVE METABOLIC PANEL 2023-01-[address] [facility] 03:51:00 [facility] CBC W/PLT COUNT & AUTO 2023-01-05 Sesar, Roger [facility] 03:51:00 [facility] CBC W/PLT COUNT & AUTO 2023-01-05 Sesar, Roger [facility] 03:51:00 [facility] POCT-GLUCOSE METER 2023-01-[address] [facility] 01:05:00 [facility] APTT 2023-01-[address] [facility] 01:03:00 [facility] POCT-GLUCOSE METER 2023-01-[address] [facility] 21:43:00 [facility] CALCIUM, IONIZED 2023-01-04 Richardson, Rustam [facility] 19:51:00 [facility] PHOSPHORUS 2023-01-[address] [facility] 19:51:00 [facility] MAGNESIUM 2023-01-04 Richardson, Rustam [facility] 19:51:00 [facility] BASIC METABOLIC PANEL 2023-01-04 Richardson, Rustam [facility] 19:51:00 [facility] APTT 2023-01-[address] [facility] 18:07:00 [facility] POCT-GLUCOSE METER 2023-01-[address] [facility] 17:29:00 [facility] PLATELET COUNT 2023-01-04 Mofor, Loyce [facility] 11:22:00 [facility] APTT 2023-01-04 Mofor, Loyce [facility] 11:22:00 [facility] POCT-GLUCOSE METER 2023-01-[address] [facility] 11:14:00 [facility] PREPARE RBC 2023-01-[address] [facility] 07:04:00 [facility] POCT-GLUCOSE METER 2023-01-[address] [facility] 05:50:00 [facility] LACTATE DEHYDROGENASE (LDH) 2023-01-04 Kee, Youmna A [facility] 04:58:00 [facility] HAPTOGLOBIN 2023-01-04 Kee, Youmna A [facility] 04:58:00 [facility] RETICULOCYTE COUNT 2023-01-04 Abel Sweetmna A [facility] 04:58:00 [facility] PT/APTT 2023-01-04 West, Anushka [facility] 04:58:00 [facility] FIBRINOGEN 2023-01-04 Norma Sweeta A [facility] 04:58:00 [facility] MAGNESIUM 2023-01-04 West, Anushka [facility] 04:58:00 [facility] PHOSPHORUS 2023-01-04 West, Anushka [facility] 04:58:00 [facility] COMPREHENSIVE METABOLIC PANEL 2023-01-04 Dajuan, [facility]ushka [facility] 04:58:00 [facility] VANCOMYCIN LEVEL, RANDOM 2023-01-[address] [facility] 04:58:00 [facility] CBC W/PLT COUNT & AUTO 2023-01-04 Sesar, Roger [facility] 04:58:00 [facility] CBC W/PLT COUNT & AUTO 2023-01-04 Sesar, Roger [facility] 04:58:00 [facility] (CELLAVISION MANUAL DIFF) 2023-01-04 Sesar, Roger [facility] 04:58:00 [facility] XR CHEST 1 VIEW PORTABLE / BEDSIDE 2023-01-[address] [facility] 02:50:00 [facility] POCT-GLUCOSE METER 2023-01-[address] [facility] 01:31:00 [facility] BASIC METABOLIC PANEL 2023-01-[address] [facility] 21:44:00 [facility] CALCIUM, IONIZED 2023-01-[address] [facility] 21:44:00 [facility] PHOSPHORUS 2023-01-[address] [facility] 21:44:00 [facility] MAGNESIUM 2023-01-[address] [facility] 21:44:00 [facility] POCT-GLUCOSE METER 2023-01-[address] [facility] 17:17:00 [facility] XR CHEST 1 VIEW PORTABLE / BEDSIDE 2023-01-[address] [facility] 16:19:00 [facility] [place] ANTIBODY IDENTIFICATION 2023-01-[address] [facility] 15:48:00 [facility] BASIC METABOLIC PANEL 2023-01-[address] [facility] 13:33:00 [facility] MAGNESIUM 2023-01-[address] [facility] 13:33:00 [facility] PHOSPHORUS 2023-01-[address] [facility] 13:33:00 [facility] CALCIUM, IONIZED 2023-01-[address] [facility] 13:33:00 [facility] BLOOD GAS, ARTERIAL 2023-01-[address] [facility] 13:33:00 [facility] CBC W/PLT COUNT & AUTO 2023-01-[address] [facility] 13:33:00 [facility] CBC W/PLT COUNT & AUTO 2023-01-[address] [facility] 13:33:00 [facility] (CELLAVISION MANUAL DIFF) 2023-01-[address] [facility] 13:33:00 [facility] XR ABDOMEN/KUB 1 VIEW PORTABLE 2023-01-[address] [facility] 12:10:00 D [facility] PREPARE LEUKO-REDUCED RBC 2023-01-[address] [facility] 10:31:00 [facility] TISSUE EXAM 2023-01-[address] [facility] 09:45:00 D [facility] RRL CRITICAL LABS 2023-01-[address] [facility] (ABG,NA,K,H&H,GLUCOSE) 08:39:10 D Medical enter BLOOD GAS, ARTERIAL 2023-01-[address] [facility] 08:39:10 D [facility] CALCIUM, IONIZED 2023-01-[address] [facility] 08:39:10 D [facility] PH, ARTERIAL 2023-01-[address] [facility] 08:39:10 D [facility] SODIUM NA-STAT LAB 2023-01-03 Juan[facility] 08:39:10 [facility] POTASSIUM-STAT LAB 2023-01-03 Juan, [facility]i [facility] 08:39:10 [facility] GLUCOSE-STAT LAB 2023-01-03 Juan, Ricki [facility] 08:39:10 [facility] HGB/HCT (H&H) - STAT LAB 2023-01-03 Juan[facility] 08:39:10 D [facility] LAPAROTOMY, EXPLORATORY 2023-01-03 Juan, Ricki [facility] 07:59:00 D [facility] CREATION, ILEOSTOMY 2023-01-03 Juan, [facility] 07:59:00 D [facility] CREATION, COLOSTOMY 2023-01-03 Juan, Ricki [facility] 07:59:00 D [facility] BLOOD BANK EXTRA PINK KEDTA TOP 2023-01-[address] [facility] 07:51:00 [facility] XR CHEST 1 VIEW PORTABLE / BEDSIDE 2023-01-[address] [facility] 05:30:00 [facility] POCT-GLUCOSE METER 2023-01-[address] [facility] 05:22:00 [facility] CALCIUM, IONIZED 2023-01-[address] [facility] 04:16:00 [facility] PHOSPHORUS 2023-01-[address] [facility] 04:16:00 [facility] MAGNESIUM 2023-01-[address] [facility] 04:16:00 [facility] LACTATE DEHYDROGENASE (LDH) 2023-01-03 Abel Sweetmna A [facility] 04:16:00 [facility] HAPTOGLOBIN 2023-01-03 Abel Sweetmna A [facility] 04:16:00 [facility] RETICULOCYTE COUNT 2023-01-03 Abel Sweetmna A [facility] 04:16:00 [facility] PT/APTT 2023-01-[address] [facility] 04:16:00 [facility] FIBRINOGEN 2023-01-03 Kee, Youmna A [facility] 04:16:00 [facility] COMPREHENSIVE METABOLIC PANEL 2023-01-03 [place] [facility]ka [facility] 04:16:00 [facility] CBC (HEMOGRAM ONLY) 2023-01-[address] [facility] 04:16:00 [facility] HCG, QUANTITATIVE, 2023-01-[address] [facility] 04:16:00 [facility] POCT-GLUCOSE METER 2023-01-[address] [facility] 00:24:00 [facility] CALCIUM, IONIZED 2023-01-03 Richardson, Rustam [facility] 00:20:00 [facility] BASIC METABOLIC PANEL 2023-01-03 Richardson, Rustam [facility] 00:20:00 [facility] PHOSPHORUS 2023-01-03 Richardson, Rustam [facility] 00:20:00 [facility] MAGNESIUM 2023-01-03 Richardson, Rustam [facility] 00:20:00 [facility] TYPE AND SCREEN, AUTOMATED 2023-01-03 Harsha Orellana [facility] 00:20:00 [facility] XR CHEST 1 VIEW PORTABLE / BEDSIDE 2023-01-[address] [facility] 19:31:00 [facility] POCT-GLUCOSE METER 2023-01-02 Magdalena, Toby [facility] 17:35:00 [facility] BASIC METABOLIC PANEL 2023-01-02 Richardson, Rustam [facility] 16:06:00 [facility] CALCIUM, IONIZED 2023-01-02 Richardson, Rustam [facility] 16:06:00 [facility] PHOSPHORUS 2023-01-02 Richardson, Rustam [facility] 16:06:00 [facility] MAGNESIUM 2023-01-02 Richardson, Rustam [facility] 16:06:00 [facility] POCT-GLUCOSE METER 2023-01-02 Magdalena, Toby [facility] 11:27:00 [facility] BLOOD GAS, ARTERIAL 2023-01-[address] [facility] 09:40:00 [facility] POCT-GLUCOSE METER 2023-01-02 Magdalena, Toby [facility] 08:02:00 [facility] XR CHEST 1 VIEW PORTABLE / BEDSIDE 2023-01-[address] [facility] 02:30:00 [facility] CALCIUM, IONIZED 2023-01-02 Richardson, Rustam [facility] 01:46:00 [facility] LACTATE DEHYDROGENASE (LDH) 2023-01-02 Abel Sweetmna A [facility] 01:18:00 [facility] HAPTOGLOBIN 2023-01-02 Kee, Youmna A [facility] 01:18:00 [facility] RETICULOCYTE COUNT 2023-01-02 Kee, Youmna A [facility] 01:18:00 [facility] PT/APTT 2023-01-[address] [facility] 01:18:00 [facility] FIBRINOGEN 2023-01-02 Kee, Abelmna A [facility] 01:18:00 [facility] COMPREHENSIVE METABOLIC PANEL 2023-01-02 Anush[facility] Graff [facility] 01:18:00 [facility] CBC (HEMOGRAM ONLY) 2023-01-02 KeeAbel contrerasmnbryan A [facility] 01:18:00 [facility] BASIC METABOLIC PANEL 2023-01-02 Richardson, Rustam [facility] 00:07:00 [facility] CALCIUM, IONIZED 2023-01-02 Richardson, Rustam [facility] 00:07:00 [facility] PHOSPHORUS 2023-01-02 Richardson, Rustam [facility] 00:07:00 [facility] MAGNESIUM 2023-01-02 Richardson, Rustam [facility] 00:07:00 [facility] PREPARE LEUKO-REDUCED RBC 2023-01-[address] [facility] 23:54:00 [facility] BASIC METABOLIC PANEL 2023-01-01 Richardson, Rustam [facility] 21:51:00 [facility] CALCIUM, IONIZED 2023-01-01 Richardson, Rustam [facility] 21:51:00 [facility] PHOSPHORUS 2023-01-01 Richardson, Rustam [facility] 21:51:00 [facility] MAGNESIUM 2023-01-01 Richardson, Rustam [facility] 21:51:00 [facility] POCT-GLUCOSE METER 2023-01-[address] [facility] 18:14:00 [facility] POCT-GLUCOSE METER 2023-01-01 MagdalenaToby [facility] 12:02:00 [facility] XR CHEST 1 VIEW PORTABLE / BEDSIDE 2023-01-01 Dajuan, Anushka [facility] 11:30:00 [facility] BLOOD GAS, ARTERIAL 2023-01-[address] [facility] 11:26:00 [facility] POCT-GLUCOSE METER 2023-01-[address] [facility] 06:26:00 [facility] HC ARTERIAL DOPPLER LEG UNI 2023-01-01 Creden, Deshaun [facility] 06:24:00 [facility] LACTATE DEHYDROGENASE (LDH) 2023-01-01 Kee, Youmna A [facility] 02:40:00 [facility] HAPTOGLOBIN 2023-01-01 Kee, Youmna A [facility] 02:40:00 [facility] RETICULOCYTE COUNT 2023-01-01 Kee, Youmna A [facility] 02:40:00 [facility] PT/APTT 2023-01-01 West, Anushka [facility] 02:40:00 [facility] FIBRINOGEN 2023-01-01 Kee, Youmna A [facility] 02:40:00 [facility] MAGNESIUM 2023-01-01 West, Anushka [facility] 02:40:00 [facility] PHOSPHORUS 2023-01-01 West, Anushka [facility] 02:40:00 [facility] COMPREHENSIVE METABOLIC PANEL 2023-01-01 West, [facility]ushka [facility] 02:40:00 [facility] CBC (HEMOGRAM ONLY) 2023-01-01 Kee, Abelmna [facility] 02:40:00 [facility] POCT-GLUCOSE METER 2022-12-[address] [facility] 23:50:00 [facility] CBC W/PLT COUNT & AUTO 2022-12-31 Creden, Deshaun [facility] DIFFERENTIAL 18:07:00 [facility] BASIC METABOLIC PANEL 2022-12-31 Creden, Deshaun [facility] 18:07:00 [facility] HEPATIC FUNCTION PANEL 2022-12-31 Creden, Deshaun [facility] 18:07:00 [facility] MAGNESIUM 2022-12-31 Creden, Deshaun [facility] 18:07:00 [facility] PHOSPHORUS 2022-12-31 Creden, Deshaun [facility] 18:07:00 [facility] PT/APTT 2022-12-31 Creden, Deshaun [facility] 18:07:00 [facility] PROTHROMBIN TIME/INR 2022-12-31 Creden, Deshaun [facility] 18:07:00 [facility] BLOOD GAS, ARTERIAL 2022-12-31 Creden, Deshaun [facility] 18:07:00 [facility] CBC W/PLT COUNT & AUTO 2022-12-31 Mary, Deshaun [facility] DIFFERENTIAL 18:07:00 [facility] XR CHEST 1 VIEW PORTABLE / BEDSIDE 2022-12-[address] [facility] 18:02:00 [facility] ANTIBODY IDENTIFICATION 2022-12-[address] [facility] 17:27:00 [facility] TRANSFUSE LEUKO-REDUCED RBC (IN 2022-12-31 Florencio, Janet [facility] 16:07:00 [facility] FUNGUS CULTURE + SMEAR 2022-12-[address] [facility] 15:53:00 [facility] SURGICALLY OBTAINED CULTURE + GRAM 2022-12-[address] [facility] STAIN 15:53:00 [facility] ANAEROBIC CULTURE 2022-12-[address] [facility] 15:53:00 [facility] AFB CULTURE + SMEAR (NON-SPUTUM) 2022-12-[address] [facility] 15:53:00 [facility] SPIN/CONCENTRATION CHARGE 2022-12-[address] [facility] 15:53:00 [facility] TRANSFUSE LEUKO-REDUCED RED BLOOD 2022-12-[address] [facility] CELLS 15:50:00 [facility] TISSUE EXAM 2022-12-[address] [facility] 15:43:00 [facility] RRL CRITICAL LABS 2022-12-[address] [facility] (ABG,NA,K,H&H,GLUCOSE) 15:17:49 [facility] enter CALCIUM, IONIZED 2022-12-31 Ozaki, Bernarda [facility] 15:17:49 [facility] BLOOD GAS, ARTERIAL 2022-12-31 Ozaki, Bernarda [facility] 15:17:49 [facility] SODIUM NA-STAT LAB 2022-12-31 Ozaki, Bernarda [facility] 15:17:49 [facility] POTASSIUM-STAT LAB 2022-12-31 Ozaki, Bernarda [facility] 15:17:49 [facility] GLUCOSE-STAT LAB 2022-12-31 Ozaki, Bernarda [facility] 15:17:49 [facility] HGB/HCT (H&H) - STAT LAB 2022-12-31 Ozaki, Bernarda [facility] 15:17:49 [facility] BLOOD GAS, ARTERIAL 2022-12-31 Ozalissa, Bernarda [facility] 14:37:18 [facility] CALCIUM, IONIZED 2022-12-31 Ozaki, Bernarda [facility] 14:37:18 [facility] PH, ARTERIAL 2022-12-31 Ozaki, Bernarda [facility] 14:37:18 [facility] SODIUM NA-STAT LAB 2022-12-31 Ozaki, Bernarda [facility] 14:37:18 [facility] POTASSIUM-STAT LAB 2022-12-31 Ozaki, Bernarda [facility] 14:37:18 [facility] GLUCOSE-STAT LAB 2022-12-31 Ozaki, Bernarda [facility] 14:37:18 [facility] HGB/HCT (H&H) - STAT LAB 2022-12-31 Ozaki, Bernarda [facility] 14:37:18 [facility] LAPAROTOMY, EXPLORATORY 2022-12-31 Ozalissa, Bernarda [facility] 13:37:00 [facility] POCT-GLUCOSE METER 2022-12-[address] [facility] 12:12:00 [facility] HEMODIALYSIS INPATIENT 2022-12-[address] [facility] 11:15:00 [facility] TYPE AND SCREEN, AUTOMATED 2022-12-31 TilaBernarda [facility] 11:13:00 [facility] POCT-GLUCOSE METER 2022-12-31 Ali, Sheria Tereso [facility] 10:28:00 [facility] RETICULOCYTE COUNT 2022-12-31 Kee, Youmna A [facility] 09:07:00 [facility] PT/APTT 2022-12-31 West, Anushka [facility] 09:07:00 [facility] FIBRINOGEN 2022-12-31 Kee, Youmna A [facility] 09:07:00 [facility] CALCIUM, IONIZED 2022-12-31 Richardson, Rustam [facility] 09:07:00 [facility] CBC W/PLT COUNT & AUTO 2022-12-31 Richardson, Rustam [facility] DIFFERENTIAL 09:07:00 [facility] CBC W/PLT COUNT & AUTO 2022-12-31 Richardson, Rustam [facility] DIFFERENTIAL 09:07:00 [facility] (CELLAVISION MANUAL DIFF) 2022-12-31 Richardson, Rustam [facility] 09:07:00 [facility] POCT-GLUCOSE METER 2022-12-31 Melanie, Sheria Tereso [facility] 06:16:00 [facility] LACTATE DEHYDROGENASE (LDH) 2022-12-31 Kee, Abelmna A [facility] 04:53:00 [facility] HAPTOGLOBIN 2022-12-31 Kee, Youmna A [facility] 04:53:00 [facility] MAGNESIUM 2022-12-[address] [facility] 04:53:00 [facility] PHOSPHORUS 2022-12-31 West, Anushka [facility] 04:53:00 [facility] COMPREHENSIVE METABOLIC PANEL 2022-12-31 West, Anushka [facility] 04:53:00 [facility] CT ABDOMEN/PELVIS WITHOUT IV 2022-12-31 She[address] Tereso [facility] CONTRAST 03:45:00 [facility] POCT-GLUCOSE METER 2022-12-30 Ali, Hiba Tereso [facility] 20:31:00 [facility] POCT-GLUCOSE METER 2022-12-30 Ali, Hiba Tereso [facility] 16:42:00 [facility] XR CHEST 1 VIEW PORTABLE / BEDSIDE 2022-12-30 Pantera Navarro ir [facility] 13:59:00 [facility] POCT-GLUCOSE METER 2022-12-30 Sheri [address]reso [facility] 11:46:00 [facility] POCT-GLUCOSE METER 2022-12-[address] [facility] 06:09:00 [facility] PREPARE RBC 2022-12-30 Rumbanisa Sam D [facility] 05:21:00 [facility] XR ABDOMEN/KUB 1 VIEW PORTABLE 2022-12-[address] [facility] 04:00:00 [facility] LACTATE DEHYDROGENASE (LDH) 2022-12-30 Kee, Youmna A [facility] 02:24:00 [facility] HAPTOGLOBIN 2022-12-30 Kee, Youmna A [facility] 02:24:00 [facility] RETICULOCYTE COUNT 2022-12-30 Kee, Youmna A [facility] 02:24:00 [facility] PT/APTT 2022-12-30 West, Anushka [facility] 02:24:00 [facility] FIBRINOGEN 2022-12-30 Kee, Youmna A [facility] 02:24:00 [facility] MAGNESIUM 2022-12-30 West, Anushka [facility] 02:24:00 [facility] PHOSPHORUS 2022-12-30 West, Anushka [facility] 02:24:00 [facility] COMPREHENSIVE METABOLIC PANEL 2022-12-30 West, Anushka [facility] 02:24:00 [facility] CBC (HEMOGRAM ONLY) 2022-12-30 Kee, Abelmna A [facility] 02:24:00 [facility] POCT-GLUCOSE METER 2022-12-[address] [facility] 20:52:00 [facility] CREATINE KINASE (CK) 2022-12-[address] [facility] 19:36:00 [facility] G6PD, QUANTITATIVE 2022-12-[address] [facility] 19:36:00 [facility] HEMODIALYSIS INPATIENT 2022-12-[address] [facility] 18:58:10 [facility] POCT-GLUCOSE METER 2022-12-[address] [facility] 17:33:00 [facility] CBC (HEMOGRAM ONLY) 2022-12-29 Sam Isaac Jorge [facility] 17:29:00 [facility] XR CHEST 1 VIEW PORTABLE / BEDSIDE 2022-12-[address] [facility] 15:28:00 [facility] POCT-GLUCOSE METER 2022-12-[address] [facility] 11:36:00 [facility] XR ABDOMEN/KUB 1 VIEW PORTABLE 2022-12-29 Paulinemarianne Krystyna Bill [facility] 11:24:00 [facility] POCT-GLUCOSE METER 2022-12-[address] [facility] 07:36:00 [facility] URINALYSIS WITH MICROSCOPIC IF 2022-12-29 Milad Ba[facility]uelos [facility] INDICATED 04:26:00 [facility] URINALYSIS MICROSCOPIC 2022-12-29 Milad Bañuelos [facility] 04:26:00 [facility] POCT-GLUCOSE METER 2022-12-[address] [facility] 03:43:00 [facility] LACTATE DEHYDROGENASE (LDH) 2022-12-29 Abel Sweetmna A [facility] 03:35:00 [facility] HAPTOGLOBIN 2022-12-29 Abel Sweetmna A [facility] 03:35:00 [facility] RETICULOCYTE COUNT 2022-12-29 Abel Sweetmna A [facility] 03:35:00 [facility] PT/APTT 2022-12-[address] [facility] 03:35:00 [facility] FIBRINOGEN 2022-12-29 Kee, Youmna A [facility] 03:35:00 [facility] HEPATIC FUNCTION PANEL 2022-12-[address] [facility] 03:35:00 [facility] BASIC METABOLIC PANEL 2022-12-29 Milad Ba[facility]uelos [facility] 03:35:00 [facility] MAGNESIUM 2022-12-[address] [facility] 03:35:00 [facility] PHOSPHORUS 2022-12-[address] [facility] 03:35:00 [facility] CBC W/PLT COUNT & AUTO 2022-12-29 Bijan, Twila [facility] DIFFERENTIAL 03:35:00 [facility] CALCIUM, IONIZED 2022-12-29 Richardson, Rustam [facility] 03:35:00 [facility] CBC W/PLT COUNT & AUTO 2022-12-29 Bijan, Twila [facility] DIFFERENTIAL 03:35:00 [facility] (CELLAVISION MANUAL DIFF) 2022-12-29 Bijan, Twila [facility] 03:35:00 [facility] POCT-GLUCOSE METER 2022-12-[address] [facility] 21:08:00 [facility] POCT-GLUCOSE METER 2022-12-[address] [facility] 14:26:00 [facility] POCT-GLUCOSE METER 2022-12-[address] [facility] 08:15:00 [facility] BLOOD CULTURE 2022-12-[address] [facility] 06:05:00 [facility] LACTATE DEHYDROGENASE (LDH) 2022-12-28 Kee, Youmna A [facility] 03:47:00 [facility] HAPTOGLOBIN 2022-12-28 Kee, Youmna A [facility] 03:47:00 [facility] RETICULOCYTE COUNT 2022-12-28 Kee, Youmna A [facility] 03:47:00 [facility] PT/APTT 2022-12-28 West, Anushka [facility] 03:47:00 [facility] FIBRINOGEN 2022-12-28 Kee, Youmna A [facility] 03:47:00 [facility] HEPATIC FUNCTION PANEL 2022-12-[address] [facility] 03:47:00 [facility] BASIC METABOLIC PANEL 2022-12-[address] [facility] [facility] 03:47:00 [facility] MAGNESIUM 2022-12-28 West, Anushka [facility] 03:47:00 [facility] PHOSPHORUS 2022-12-28 West, Anushka [facility] 03:47:00 [facility] CBC W/PLT COUNT & AUTO 2022-12-28 Bijan, Twila [facility] DIFFERENTIAL 03:47:00 [facility] CBC W/PLT COUNT & AUTO 2022-12-28 Bijan, Twila [facility] DIFFERENTIAL 03:47:00 [facility] (CELLAVISION MANUAL DIFF) 2022-12-28 Bijan, Twila [facility] 03:47:00 [facility] PREPARE LEUKO-REDUCED RBC 2022-12-[address] [facility] 23:54:00 [facility] POCT-GLUCOSE METER 2022-12-[address] [facility] 23:04:00 [facility] LIMITED 2D ECHOCARDIOGRAM 2022-12-27 Bijan, Twila [facility] 17:54:40 [facility] BLOOD CULTURE 2022-12-[address] [facility] 16:46:00 [facility] POCT-GLUCOSE METER 2022-12-[address] [facility] 16:40:00 [facility] HEMODIALYSIS INPATIENT 2022-12-[address] [facility] 14:57:57 [facility] CBC (HEMOGRAM ONLY) 2022-12-[address] [facility] 14:35:00 [facility] CALCIUM, IONIZED 2022-12-27 Bijan, Twila [facility] 14:35:00 [facility] US DOPPLER 2022-12-27 Bijan, Twila [facility] 14:05:00 [facility] US ABDOMEN LIMITED 2022-12-27 Bijan, Twila [facility] 14:05:00 [facility] POCT-GLUCOSE METER 2022-12-27 Safi, Jacath [facility] 12:48:00 [facility] XR CHEST 1 VIEW PORTABLE / BEDSIDE 2022-12-[address] [facility] 08:29:00 [facility] POCT-GLUCOSE METER 2022-12-27 Safi, Javeryah [facility] 08:23:00 [facility] POCT-GLUCOSE METER 2022-12-27 Safi, Javeryah [facility] 06:02:00 [facility] LACTATE DEHYDROGENASE (LDH) 2022-12-[address] [facility] 03:34:00 [facility] HAPTOGLOBIN 2022-12-27 Kee, Youmna A [facility] 03:34:00 [facility] RETICULOCYTE COUNT 2022-12-27 Kee, Youmna A [facility] 03:34:00 [facility] PT/APTT 2022-12-27 West, Anushka [facility] 03:34:00 [facility] FIBRINOGEN 2022-12-27 KeeAbel contrerasmna A [facility] 03:34:00 [facility] HEPATIC FUNCTION PANEL 2022-12-[address] [facility] 03:34:00 [facility] BASIC METABOLIC PANEL 2022-12-[address] [facility] 03:34:00 [facility] MAGNESIUM 2022-12-27 West, Anushka [facility] 03:34:00 [facility] PHOSPHORUS 2022-12-27 West, Anushka [facility] 03:34:00 [facility] CBC W/PLT COUNT & AUTO 2022-12-[address] [facility] DIFFERENTIAL 03:34:00 [facility] LIPASE 2022-12-[address] [facility] 03:34:00 [facility] CBC W/PLT COUNT & AUTO 2022-12-[address] [facility] DIFFERENTIAL 03:34:00 [facility] (CELLAVISION MANUAL DIFF) 2022-12-[address] [facility] 03:34:00 [facility] POCT-GLUCOSE METER 2022-12-[address] [facility] 00:02:00 [facility] POCT-GLUCOSE METER 2022-12-[address] [facility] 20:47:00 [facility] CBC (HEMOGRAM ONLY) 2022-12-[address] [facility] 19:33:00 [facility] C. DIFFICILE GDH TOXIN 2022-12-[address] [facility] 16:12:00 [facility] GI PATHOGEN PROFILE BY PCR 2022-12-[address] [facility] 16:12:00 [facility] TRANSFUSE LEUKO-REDUCED RED BLOOD 2022-12-[address] [facility] CELLS 15:15:00 [facility] HEMODIALYSIS INPATIENT 2022-12-[address] [facility] 13:53:02 [facility] POCT-GLUCOSE METER 2022-12-26 Safi, Faina [facility] 13:49:00 [facility] MR ABDOMEN WITH & WITHOUT IV 2022-12-[address] [facility] CONTRAST 12:43:00 [facility] CBC (HEMOGRAM ONLY) 2022-12-[address] [facility] 10:35:00 [facility] POCT-GLUCOSE METER 2022-12-26 Melloi, Faina [facility] 10:07:00 [facility] ANTIBODY IDENTIFICATION 2022-12-[address] [facility] 09:58:00 [facility] POCT-GLUCOSE METER 2022-12-26 Melloi, Faina [facility] 06:34:00 [facility] XR CHEST 1 VIEW PORTABLE / BEDSIDE 2022-12-[address] [facility] 05:16:00 [facility] TYPE AND SCREEN, AUTOMATED 2022-12-26 Sam Isaac [facility] 04:06:00 [facility] DIRECT AHG (ARNOLD)/DIRECT SONDRA 2022-12-[address] [facility] 04:06:00 [facility] CBC W/PLT COUNT & AUTO 2022-12-[address] [facility] DIFFERENTIAL 03:06:00 [facility] CBC W/PLT COUNT & AUTO 2022-12-[address] [facility] DIFFERENTIAL 03:06:00 [facility] BLOOD GAS, ARTERIAL 2022-12-26 Juan, Jessee [facility] 02:34:00 [facility] LACTATE DEHYDROGENASE (LDH) 2022-12-26 Kee Youmna A [facility] 02:25:00 [facility] HAPTOGLOBIN 2022-12-26 Kee Youmna A [facility] 02:25:00 [facility] RETICULOCYTE COUNT 2022-12-26 Kee Youmna A [facility] 02:25:00 [facility] PT/APTT 2022-12-26 West, Anushka [facility] 02:25:00 [facility] FIBRINOGEN 2022-12-[address] [facility] 02:25:00 [facility] CBC W/PLT COUNT & AUTO 2022-12-26 Juan, Jessee [facility] DIFFERENTIAL 02:25:00 [facility] HEPATIC FUNCTION PANEL 2022-12-26 Juan, Jessee [facility] 02:25:00 [facility] BASIC METABOLIC PANEL 2022-12-[address] [facility] 02:25:00 [facility] MAGNESIUM 2022-12-26 West, Anushka [facility] 02:25:00 [facility] PHOSPHORUS 2022-12-26 West, Anushka [facility] 02:25:00 [facility] CBC W/PLT COUNT & AUTO 2022-12-26 Juan, Jessee [facility] DIFFERENTIAL 02:25:00 [facility] (CELLAVISION MANUAL DIFF) 2022-12-26 Juan, Jessee [facility] 02:25:00 [facility] POCT-GLUCOSE METER 2022-12-26 Safi, Javeryah [facility] 01:00:00 [facility] POCT-GLUCOSE METER 2022-12-25 Safi, Javeryah [facility] 22:36:00 [facility] CBC (HEMOGRAM ONLY) 2022-12-25 Juan, Jessee [facility] 18:42:00 [facility] LACTIC ACID, ARTERIAL 2022-12-25 Andres, Sara [facility] 18:42:00 [facility] HEMODIALYSIS INPATIENT 2022-12-[address] [facility] 18:27:00 [facility] POCT-GLUCOSE METER 2022-12-25 Safi, Javeryah [facility] 16:45:00 [facility] CBC (HEMOGRAM ONLY) 2022-12-25 Juan, Jessee [facility] 12:18:00 [facility] BLOOD CULTURE 2022-12-25 [place], Sara [facility] 11:21:00 [facility] POCT-GLUCOSE METER 2022-12-25 Safi, Javeryah [facility] 10:12:00 [facility] POCT-GLUCOSE METER 2022-12-25 Safi, Javeryah [facility] 05:23:00 [facility] LACTATE DEHYDROGENASE (LDH) 2022-12-25 Abel Sweetmna A [facility] 03:02:00 [facility] HAPTOGLOBIN 2022-12-25 Kee, Youmna A [facility] 03:02:00 [facility] RETICULOCYTE COUNT 2022-12-25 Kee Youmna A [facility] 03:02:00 [facility] PT/APTT 2022-12-25 West, Anushka [facility] 03:02:00 [facility] FIBRINOGEN 2022-12-25 Abel Sweetmna A [facility] 03:02:00 [facility] CBC W/PLT COUNT & AUTO 2022-12-25 Juan, Jessee [facility] DIFFERENTIAL 03:02:00 [facility] BLOOD GAS, ARTERIAL 2022-12-25 Juan, Jessee [facility] 03:02:00 [facility] HEPATIC FUNCTION PANEL 2022-12-25 Juan, Jessee [facility] 03:02:00 [facility] VANCOMYCIN LEVEL, RANDOM 2022-12-[address] [facility] 03:02:00 [facility] BASIC METABOLIC PANEL 2022-12-25 Egland, Milad [facility] 03:02:00 [facility] MAGNESIUM 2022-12-25 Egland, Milad [facility] 03:02:00 [facility] PHOSPHORUS 2022-12-25 Egland, Milad [facility] 03:02:00 [facility] POCT-GLUCOSE METER 2022-12-[address] [facility] 03:02:00 [facility] CBC W/PLT COUNT & AUTO 2022-12-25 Juan, Jessee [facility] DIFFERENTIAL 03:02:00 [facility] (CELLAVISION MANUAL DIFF) 2022-12-25 Juan, Jessee [facility] 03:02:00 [facility] XR CHEST 1 VIEW PORTABLE / BEDSIDE 2022-12-[address] [facility] 01:32:00 [facility] POCT-GLUCOSE METER 2022-12-24 Safi, Javeryah [facility] 23:36:00 [facility] POCT-GLUCOSE METER 2022-12-24 Safi, Javeryah [facility] 21:10:00 [facility] CBC (HEMOGRAM ONLY) 2022-12-24 Juan, Jessee [facility] 20:11:00 [facility] ARTERIAL DOPPLER LEGS BILATERAL 2022-12-[address] [facility] 19:45:00 [facility] CT ABDOMEN/PELVIS WITHOUT IV 2022-12-[address] [facility] CONTRAST 18:36:00 [facility] POCT-GLUCOSE METER 2022-12-24 Safi, Javeryah [facility] 17:54:00 [facility] CBC (HEMOGRAM ONLY) 2022-12-24 Juan, Jessee [facility] 12:06:00 [facility] POCT-GLUCOSE METER 2022-12-24 Safi, Javeryah [facility] 09:51:00 [facility] POCT-GLUCOSE METER 2022-12-24 Safi, Javeryah [facility] 05:24:00 [facility] XR ABDOMEN/KUB 1 VIEW PORTABLE 2022-12-[address] [facility] 04:36:00 [facility] BASIC METABOLIC PANEL 2022-12-24 Richardson, Rustam [facility] 02:32[facility]00 [facility] CALCIUM, IONIZED 2022-12-24 Richardson, Rustam [facility] 02:32:00 [facility] PHOSPHORUS 2022-12-24 Richardson, Rustam [facility] 02:32:00 [facility] MAGNESIUM 2022-12-24 Richardson, Rustam [facility] 02:32:00 [facility] LACTATE DEHYDROGENASE (LDH) 2022-12-24 Norma Sweeta A [facility] 02:32:00 [facility] HAPTOGLOBIN 2022-12-24 Abel Sweetmna A [facility] 02:32:00 [facility] RETICULOCYTE COUNT 2022-12-24 Abel Sweetmna A [facility] 02:32:00 [facility] PT/APTT 2022-12-[address] [facility] 02:32:00 [facility] FIBRINOGEN 2022-12-[address] [facility] 02:32:00 [facility] CBC W/PLT COUNT & AUTO 2022-12-24 Juan, Jessee [facility] DIFFERENTIAL 02:32:00 [facility] BLOOD GAS, ARTERIAL 2022-12-24 Juan, Jessee [facility] 02:32:00 [facility] HEPATIC FUNCTION PANEL 2022-12-24 Juan, Jessee [facility] 02:32:00 [facility] CBC W/PLT COUNT & AUTO 2022-12-24 Juan, [place] [facility] DIFFERENTIAL 02:32:00 [facility] (CELLAVISION MANUAL DIFF) 2022-12-24 Juan, [place] [facility] 02:32:00 [facility] XR CHEST 1 VIEW PORTABLE / BEDSIDE 2022-12-24 Chon Orellana chon [facility] 00:24:00 [facility] POCT-GLUCOSE METER 2022-12-24 Safi, Javeryah [facility] 00:12:00 [facility] BASIC METABOLIC PANEL 2022-12-23 Richardson, Rustam [facility] 22:16:00 [facility] CALCIUM, IONIZED 2022-12-23 Richardson, Rustam [facility] 22:16:00 [facility] PHOSPHORUS 2022-12-23 Richardson, Rustam [facility] 22:16:00 [facility] MAGNESIUM 2022-12-23 Richardson, Rustam [facility] 22:16:00 [facility] CBC (HEMOGRAM ONLY) 2022-12-23 Juan, Jessee [facility] 19:32:00 [facility] POCT-GLUCOSE METER 2022-12-23 Safi, Javeryah [facility] 18:07:00 [facility] POCT-GLUCOSE METER 2022-12-23 Safi, Javeryah [facility] 11:29:00 [facility] CALCIUM, IONIZED 2022-12-23 Juan, Jessee [facility] 11:18:00 [facility] CBC (HEMOGRAM ONLY) 2022-12-23 Juan, Jessee [facility] 11:18:00 [facility] MAGNESIUM 2022-12-23 Juan, Jessee [facility] 11:18:00 [facility] PHOSPHORUS 2022-12-23 Juan, Jessee [facility] 11:18:00 [facility] BASIC METABOLIC PANEL 2022-12-[address] [facility] 11:18:00 [facility] XR CHEST 1 VIEW PORTABLE / BEDSIDE 2022-12-[address] [facility] 09:17:00 [facility] PREPARE RBC 2022-12-[address] [facility] 07:18:00 [facility] PREPARE LEUKO-REDUCED RBC 2022-12-23 Poncho Sam Jorge [facility] 07:18:00 [facility] POCT-GLUCOSE METER 2022-12-[address] [facility] 05:36:00 [facility] BLOOD CULTURE 2022-12-23 Leobardo [address] Delcid [facility] 04:07:00 [facility] BLOOD CULTURE IDENTIFICATION PANEL 2022-12-[address] Lua [facility] 04:07:00 [facility] LACTATE DEHYDROGENASE (LDH) 2022-12-23 Kee Abelmna A [facility] 03:22:00 [facility] HAPTOGLOBIN 2022-12-23 Kee, Youmna A [facility] 03:22:00 [facility] RETICULOCYTE COUNT 2022-12-23 Kee, Youmna A [facility] 03:22:00 [facility] PT/APTT 2022-12-23 West, Anushka [facility] 03:22:00 [facility] FIBRINOGEN 2022-12-23 Kee, Youmna A [facility] 03:22:00 [facility] CALCIUM, IONIZED 2022-12-23 Juan, Jessee [facility] 03:22:00 [facility] CBC W/PLT COUNT & AUTO 2022-12-23 Juan, Jessee [facility] DIFFERENTIAL 03:22:00 [facility] MAGNESIUM 2022-12-23 Juan, Jessee [facility] 03:22:00 [facility] PHOSPHORUS 2022-12-23 Juan, Jessee [facility] 03:22:00 [facility] BLOOD GAS, ARTERIAL 2022-12-23 Juan, Jessee [facility] 03:22:00 [facility] HEPATIC FUNCTION PANEL 2022-12-23 Juan, Jessee [facility] 03:22:00 [facility] BASIC METABOLIC PANEL 2022-12-[address] [facility] 03:22:00 [facility] CBC W/PLT COUNT & AUTO 2022-12-23 Juan, Jessee [facility] DIFFERENTIAL 03:22:00 [facility] (CELLAVISION MANUAL DIFF) 2022-12-23 Juan, Jessee [facility] 03:22:00 [facility] POCT-GLUCOSE METER 2022-12-23 Safi, Javeryah [facility] 03:19:00 [facility] POCT-GLUCOSE METER 2022-12-23 Safi, Javeryah [facility] 01:11:00 [facility] POCT-GLUCOSE METER 2022-12-22 Safi, Javeryah [facility] 21:53:00 [facility] CALCIUM, IONIZED 2022-12-22 Juan, Jessee [facility] 19:56:00 [facility] CBC (HEMOGRAM ONLY) 2022-12-22 Juan, Jessee [facility] 19:56:00 [facility] MAGNESIUM 2022-12-22 Juan, Jessee [facility] 19:56:00 [facility] PHOSPHORUS 2022-12-22 Juan, Jessee [facility] 19:56:00 [facility] BASIC METABOLIC PANEL 2022-12-[address] [facility] 19:56:00 [facility] BLOOD CULTURE 2022-12-22 Chon O[address] [facility] 19:08:00 [facility] POCT-GLUCOSE METER 2022-12-22 Safi, Javeryah [facility] 17:26:00 [facility] CALCIUM, IONIZED 2022-12-22 Juan, Jessee [facility] 12:40:00 [facility] CBC (HEMOGRAM ONLY) 2022-12-22 Juan, Jessee [facility] 12:40:00 [facility] MAGNESIUM 2022-12-22 Juan, Jsesee [facility] 12:40:00 [facility] PHOSPHORUS 2022-12-22 Juan, Jessee [facility] 12:40:00 [facility] BASIC METABOLIC PANEL 2022-12-22 Juan, Jessee [facility] 12:40:00 [facility] BASIC METABOLIC PANEL 2022-12-22 Portillo, Rock B [facility] 08:25:00 [facility] AMMONIA 2022-12-22 Safi, Faina [facility] 06:51:00 [facility] POCT-GLUCOSE METER 2022-12-22 Safi, Angellaya [facility] 05:25:00 [facility] BLOOD GAS, ARTERIAL 2022-12-[address] [facility] 04:00:00 [facility] LACTATE DEHYDROGENASE (LDH) 2022-12-22 Kee, Youmna A [facility] 03:59:00 [facility] HAPTOGLOBIN 2022-12-22 Kee, Youmna A [facility] 03:59:00 [facility] RETICULOCYTE COUNT 2022-12-22 Kee, Youmna A [facility] 03:59:00 [facility] PT/APTT 2022-12-22 West, Anushka [facility] 03:59:00 [facility] FIBRINOGEN 2022-12-22 Kee Youmna A [facility] 03:59:00 [facility] CALCIUM, IONIZED 2022-12-22 Juan, Jessee [facility] 03:59:00 [facility] CBC W/PLT COUNT & AUTO 2022-12-22 Juan, Jessee [facility] DIFFERENTIAL 03:59:00 [facility] HEPATIC FUNCTION PANEL 2022-12-22 Juan, Jessee [facility] 03:59:00 [facility] MAGNESIUM 2022-12-22 Juan, Jessee [facility] 03:59:00 [facility] PHOSPHORUS 2022-12-22 Juan, Jessee [facility] 03:59:00 [facility] BASIC METABOLIC PANEL 2022-12-22 Portillo, Rock B [facility] 03:59:00 [facility] VANCOMYCIN LEVEL, RANDOM 2022-12-22 Vallabh, Lea I [facility] 03:59:00 [facility] FERRITIN 2022-12-[address] [facility] 03:59:00 [facility] CBC W/PLT COUNT & AUTO 2022-12-22 Juan, Jessee [facility] DIFFERENTIAL 03:59:00 [facility] (CELLAVISION MANUAL DIFF) 2022-12-22 Juan, Jessee [facility] 03:59:00 [facility] XR CHEST 1 VIEW PORTABLE / BEDSIDE 2022-12-[address] [facility] 01:27:00 [facility] BASIC METABOLIC PANEL 2022-12-22 Lopez Portillohu B [facility] 00:09:00 [facility] POCT-GLUCOSE METER 2022-12-21 Safi, Javeryah [facility] 23:33:00 [facility] CALCIUM, IONIZED 2022-12-21 Juan, Jessee [facility] 20:09:00 [facility] CBC (HEMOGRAM ONLY) 2022-12-21 Juan, Jessee [facility] 20:09:00 [facility] HEPATIC FUNCTION PANEL 2022-12-21 Juan, Jessee [facility] 20:09:00 [facility] MAGNESIUM 2022-12-21 Juan, Jessee [facility] 20:09:00 [facility] PHOSPHORUS 2022-12-21 Juan, Jessee [facility] 20:09:00 [facility] BASIC METABOLIC PANEL 2022-12-21 Lopez Portillohu B [facility] 20:09:00 [facility] FIBRINOGEN 2022-12-21 Bilal, Mohammad [facility] 20:09:00 [facility] POCT-GLUCOSE METER 2022-12-21 Safi, Javeryah [facility] 17:58:00 [facility] BLOOD GAS, ARTERIAL 2022-12-[address] [facility] 16:15:00 [facility] BASIC METABOLIC PANEL 2022-12-21 Safi, Javeryah [facility] 16:15:00 [facility] AMMONIA 2022-12-21 Bilal, Mohammad [facility] 14:00:00 [facility] CALCIUM, IONIZED 2022-12-21 Juan, Jessee [facility] 12:03:00 [facility] CBC (HEMOGRAM ONLY) 2022-12-21 Juan, Jessee [facility] 12:03:00 [facility] MAGNESIUM 2022-12-21 Juan, Jessee [facility] 12:03:00 [facility] PHOSPHORUS 2022-12-21 Juan, Jessee [facility] 12:03:00 [facility] BASIC METABOLIC PANEL 2022-12-21 Portillo, Rock B [facility] 12:03:00 [facility] BASIC METABOLIC PANEL 2022-12-21 Portillo, Rock B [facility] 08:09:00 [facility] BLOOD GAS, ARTERIAL 2022-12-[address] [facility] 03:51:00 [facility] LACTATE DEHYDROGENASE (LDH) 2022-12-21 Kee Youmna A [facility] 03:49:00 [facility] HAPTOGLOBIN 2022-12-21 Kee Youmna A [facility] 03:49:00 [facility] RETICULOCYTE COUNT 2022-12-21 Kee, Youmna A [facility] 03:49:00 [facility] PT/APTT 2022-12-[address] [facility] 03:49:00 [facility] FIBRINOGEN 2022-12-21 Kee, Youmna A [facility] 03:49:00 [facility] CALCIUM, IONIZED 2022-12-21 Juan, Jessee [facility] 03:49:00 [facility] CBC W/PLT COUNT & AUTO 2022-12-21 Juan, Jessee [facility] DIFFERENTIAL 03:49:00 [facility] HEPATIC FUNCTION PANEL 2022-12-21 Juan, Jessee [facility] 03:49:00 [facility] MAGNESIUM 2022-12-21 Juan, Jessee [facility] 03:49:00 [facility] PHOSPHORUS 2022-12-21 Juan, Jessee [facility] 03:49:00 [facility] BASIC METABOLIC PANEL 2022-12-21 Portillo, Rock B [facility] 03:49:00 [facility] CBC W/PLT COUNT & AUTO 2022-12-21 Juan, Jessee [facility] DIFFERENTIAL 03:49:00 [facility] (CELLAVISION MANUAL DIFF) 2022-12-21 Juan, Jessee [facility] 03:49:00 [facility] PREPARE RBC 2022-12-21 Rumarchana Sam D [facility] 02:58:00 [facility] XR CHEST 1 VIEW PORTABLE / BEDSIDE 2022-12-21 Rock Portillo B [facility] 01:43:00 [facility] BLOOD GAS, ARTERIAL 2022-12-20 Juan, Jessee [facility] 23:59:00 [facility] POCT-GLUCOSE METER 2022-12-[address] [facility] 23:58:00 [facility] CBC (HEMOGRAM ONLY) 2022-12-20 Kenny Isaacel Jorge [facility] 21:18:00 [facility] CALCIUM, IONIZED 2022-12-20 Juan, Jessee [facility] 20:17:00 [facility] CBC (HEMOGRAM ONLY) 2022-12-20 Juan, Jessee [facility] 20:17:00 [facility] HEPATIC FUNCTION PANEL 2022-12-20 Juan, Jessee [facility] 20:17:00 [facility] MAGNESIUM 2022-12-20 Juan, Jessee [facility] 20:17:00 [facility] PHOSPHORUS 2022-12-20 Juan, Jessee [facility] 20:17:00 [facility] BLOOD GAS, ARTERIAL 2022-12-20 Juan, Jessee [facility] 20:17:00 [facility] BASIC METABOLIC PANEL 2022-12-20 Portillo, Rock B [facility] 20:17:00 [facility] POCT-GLUCOSE METER 2022-12-[address] [facility] 20:15:00 [facility] BASIC METABOLIC PANEL 2022-12-20 Portillo, Rock B [facility] 16:00:00 [facility] BLOOD GAS, ARTERIAL 2022-12-20 Juan, Jessee [facility] 15:55:00 [facility] ARTERIAL DOPPLER LEGS BILATERAL 2022-12-[address] [facility] 14:24:00 [facility] ANTIBODY IDENTIFICATION 2022-12-[address] [facility] 11:57:00 [facility] BLOOD GAS, ARTERIAL 2022-12-20 Juan, Jessee [facility] 11:34:00 [facility] CALCIUM, IONIZED 2022-12-20 Juan, Jessee [facility] 11:33:00 [facility] CBC (HEMOGRAM ONLY) 2022-12-20 Juan, Jessee [facility] 11:33:00 [facility] MAGNESIUM 2022-12-20 Juan, Jessee [facility] 11:33:00 [facility] PHOSPHORUS 2022-12-20 Juan, Jessee [facility] 11:33:00 [facility] BASIC METABOLIC PANEL 2022-12-[address] [facility] 11:33:00 [facility] BASIC METABOLIC PANEL 2022-12-[address] [facility] 07:34:00 [facility] BLOOD GAS, ARTERIAL 2022-12-20 Juan, Jessee [facility] 07:32:00 [facility] POCT-GLUCOSE METER 2022-12-[address] [facility] 07:32:00 [facility] REFERRAL- REQUEST/RESPONSE 2022-12-20 Doctor [facility] 05:01:00 Unassigned, No [facility] POCT-GLUCOSE METER 2022-12-[address] [facility] 03:34:00 [facility] LACTATE DEHYDROGENASE (LDH) 2022-12-20 Norma Sweeta A [facility] 03:31:00 [facility] HAPTOGLOBIN 2022-12-20 Kee Youmna A [facility] 03:31:00 [facility] RETICULOCYTE COUNT 2022-12-20 Abel Sweetmna A [facility] 03:31:00 [facility] PT/APTT 2022-12-20 West, Anushka [facility] 03:31:00 [facility] FIBRINOGEN 2022-12-20 Norma Sweeta A [facility] 03:31:00 [facility] CALCIUM, IONIZED 2022-12-20 Juan, Jessee [facility] 03:31:00 [facility] CBC W/PLT COUNT & AUTO 2022-12-20 Juan, Jessee [facility] DIFFERENTIAL 03:31:00 [facility] HEPATIC FUNCTION PANEL 2022-12-20 Juan, Jessee [facility] 03:31:00 [facility] MAGNESIUM 2022-12-20 Juan, Jessee [facility] 03:31:00 [facility] PHOSPHORUS 2022-12-20 Juan, Jessee [facility] 03:31:00 [facility] BLOOD GAS, ARTERIAL 2022-12-20 Juan, Jessee [facility] 03:31:00 [facility] BASIC METABOLIC PANEL 2022-12-20 Portillo Rock B [facility] 03:31:00 [facility] CBC W/PLT COUNT & AUTO 2022-12-20 Juan, Jessee [facility] DIFFERENTIAL 03:31:00 [facility] (CELLAVISION MANUAL DIFF) 2022-12-20 Juan, Jessee [facility] 03:31:00 [facility] XR CHEST 1 VIEW PORTABLE / BEDSIDE 2022-12-20 Portillo Rock B [facility] 02:31:00 [facility] BLOOD GAS, ARTERIAL 2022-12-20 Juan, Jessee [facility] 00:04:00 [facility] BASIC METABOLIC PANEL 2022-12-[address] [facility] 00:04:00 [facility] POCT-GLUCOSE METER 2022-12-19 Lindsey Rock B [facility] 23:55:00 [facility] PREPARE LEUKO-REDUCED RBC 2022-12-19 Sahu, Azar [facility] 23:54:00 [facility] CALCIUM, IONIZED 2022-12-19 Juan, Jessee [facility] 20:10:00 [facility] CBC (HEMOGRAM ONLY) 2022-12-19 Juan, Jessee [facility] 20:10:00 [facility] HEPATIC FUNCTION PANEL 2022-12-19 Juan, Jessee [facility] 20:10:00 [facility] MAGNESIUM 2022-12-19 Juan, Jessee [facility] 20:10:00 [facility] PHOSPHORUS 2022-12-19 Juan, Jessee [facility] 20:10:00 [facility] BLOOD GAS, ARTERIAL 2022-12-19 Juan, Jessee [facility] 20:10:00 [facility] BASIC METABOLIC PANEL 2022-12-[address] [facility] 20:10:00 [facility] POCT-GLUCOSE METER 2022-12-19 Portillo, Rock B [facility] 20:09:00 [facility] BLOOD GAS, ARTERIAL 2022-12-19 Juan, Jessee [facility] 16:02:00 [facility] POCT-GLUCOSE METER 2022-12-19 Portillo, Rock B [facility] 16:02:00 [facility] MISCELLANEOUS LAB ORDER 2022-12-19 Juan, Jessee [facility] 15:59:00 [facility] BASIC METABOLIC PANEL 2022-12-19 Portillo, Rock Marie [facility] 15:59:00 [facility] TRANSFUSE LEUKO-REDUCED RED BLOOD 2022-12-[address] [facility] CELLS 15:09:00 [facility] HC LAB HIV-1 AG W/HIV-1&2 AB 2022-12-[address] [facility] 14:27:00 [facility] MISCELLANEOUS LAB ORDER 2022-12-[address] [facility] 13:09:00 [facility] HEPATITIS C PCR, QUANTITATIVE 2022-12-19 [address] [facility] 13:09:00 [facility] TYPE AND SCREEN, AUTOMATED 2022-12-19 Jessie Chapman [facility] 13:09:00 [facility] DIRECT AHG (ARNOLD)/DIRECT SONDRA 2022-12-19 Jessie Chapman [facility] 13:09:00 [facility] CALCIUM, IONIZED 2022-12-19 Juan, Jessee [facility] 11:50:00 [facility] CBC (HEMOGRAM ONLY) 2022-12-19 Juan, Jessee [facility] 11:50:00 [facility] MAGNESIUM 2022-12-19 Juan, Jessee [facility] 11:50:00 [facility] PHOSPHORUS 2022-12-19 Juan, Jessee [facility] 11:50:00 [facility] BLOOD GAS, ARTERIAL 2022-12-19 Juan, Jessee [facility] 11:50:00 [facility] BASIC METABOLIC PANEL 2022-12-19 Brain, Rustam [facility] 11:50:00 [facility] POCT-GLUCOSE METER 2022-12-19 Portillo, Rock B [facility] 11:24:00 [facility] HEPATITIS B PCR, QUANTITATIVE 2022-12-19 Edithu, Azublakeishagu [facility] 10:46:00 [facility] XR CHEST 1 VIEW PORTABLE / BEDSIDE 2022-12-19 Portillo, Rock B [facility] 10:30:00 [facility] AMMONIA 2022-12-[address] [facility] 08:42:00 [facility] BLOOD GAS, ARTERIAL 2022-12-19 Juan, Jessee [facility] 08:01:00 [facility] BASIC METABOLIC PANEL 2022-12-19 Brain, Rustam [facility] 08:00:00 [facility] POCT-GLUCOSE METER 2022-12-19 Portillo, Rock B [facility] 07:58:00 [facility] POCT-GLUCOSE METER 2022-12-19 Portillo, Rock B [facility] 02:35:00 [facility] BLOOD GAS, ARTERIAL 2022-12-19 Juan, Jessee [facility] 02:30:00 [facility] VANCOMYCIN LEVEL, TROUGH 2022-12-[address] [facility] 02:29:00 [facility] HEPATITIS B CORE ANTIBODY, TOTAL 2022-12-19 Anudu, Azubuogu [facility] 02:26:00 [facility] HEPATITIS B SURFACE ANTIBODY 2022-12-19 Anudu, Azubuogu [facility] 02:26:00 [facility] HEPATITIS A ANTIBODY, IGG 2022-12-19 Anudu, Azubuogu [facility] 02:26:00 [facility] IRON, TIBC, % SAT. (WITHOUT 2022-12-[address] [facility] FERRITIN) 02:26:00 [facility] LACTATE DEHYDROGENASE (LDH) 2022-12-19 Pete Sweet A [facility] 02:26:00 [facility] HAPTOGLOBIN 2022-12-19 Kee, Youmna A [facility] 02:26:00 [facility] RETICULOCYTE COUNT 2022-12-19 Abel Sweetmna A [facility] 02:26:00 [facility] PT/APTT 2022-12-19 West, Anushka [facility] 02:26:00 [facility] FIBRINOGEN 2022-12-19 Pete Sweet A [facility] 02:26:00 [facility] CALCIUM, IONIZED 2022-12-19 Juan, Jessee [facility] 02:26:00 [facility] CBC W/PLT COUNT & AUTO 2022-12-19 Juan, Jessee [facility] DIFFERENTIAL 02:26:00 [facility] HEPATIC FUNCTION PANEL 2022-12-19 Juan, Jessee [facility] 02:26:00 [facility] MAGNESIUM 2022-12-19 Juan, Jessee [facility] 02:26:00 [facility] PHOSPHORUS 2022-12-19 Juan, Jessee [facility] 02:26:00 [facility] BASIC METABOLIC PANEL 2022-12-[address] [facility] 02:26:00 [facility] CBC W/PLT COUNT & AUTO 2022-12-19 Juan, Jessee [facility] DIFFERENTIAL 02:26:00 [facility] (MANUAL DIFFERENTIAL) 2022-12-[address] [facility] 02:26:00 [facility] BASIC METABOLIC PANEL 2022-12-19 Brain, Rustam [facility] 00:12:00 [facility] POCT-GLUCOSE METER 2022-12-19 Rock Portillo B [facility] 00:11:00 [facility] PREPARE CRYOPRECIPITATE 2022-12-[address] [facility] 23:54:00 [facility] PREPARE PLASMA 2022-12-[address] [facility] 23:54:00 [facility] POCT-GLUCOSE METER 2022-12-[address] [facility] 20:05:00 [facility] LACTIC ACID, ARTERIAL 2022-12-18 Rumbaoa, Sam D [facility] 20:01:00 [facility] CALCIUM, IONIZED 2022-12-18 Juan, Jessee [facility] 20:01:00 [facility] CBC (HEMOGRAM ONLY) 2022-12-18 Juan, Jessee [facility] 20:01:00 [facility] HEPATIC FUNCTION PANEL 2022-12-18 Juan, Jessee [facility] 20:01:00 [facility] MAGNESIUM 2022-12-18 Juan, Jessee [facility] 20:01:00 [facility] PHOSPHORUS 2022-12-18 Juan, Jessee [facility] 20:01:00 [facility] BLOOD GAS, ARTERIAL 2022-12-18 Juan, Jessee [facility] 20:01:00 [facility] HEPATITIS E ABS IGG/IGM EIA 2022-12-18 Anudu, Azubuogu [facility] 18:35:00 [facility] LACTIC ACID, ARTERIAL 2022-12-18 Rumbaoa, Sam D [facility] 16:13:00 [facility] BLOOD GAS, ARTERIAL 2022-12-18 Juan, Jessee [facility] 16:13:00 [facility] BASIC METABOLIC PANEL 2022-12-[address] [facility] 16:13:00 [facility] EBV VIRAL LOAD 2022-12-18 Anudu, Azubuogu [facility] 16:13:00 [facility] CMV PCR, QUANTITATIVE 2022-12-18 Anudu, Azubuogu [facility] 16:13:00 [facility] CERULOPLASMIN 2022-12-18 Anudu, Azubuogu [facility] 16:13:00 [facility] FACTOR 5 ACTIVITY (BLEEDING RISK) 2022-12-18 Anudu, Trevorg u [facility] 16:13:00 [facility] HEREDITARY HEMOCHROMATOSIS 2022-12-18 Filipe Lau [facility] 16:13:00 [facility] ACETAMINOPHEN LEVEL 2022-12-[address] [facility] 16:13:00 [facility] XR CHEST 1 VIEW PORTABLE / BEDSIDE 2022-12-18 Merry Oliveira avijorge [facility] 14:36:00 [facility] DOUBLE-STRANDED DNA (DSDNA) 2022-12-18 Portillo, Rock B [facility] ANTIBODY 12:08:00 [facility] LACTIC ACID, ARTERIAL 2022-12-18 Rumbaoa Sam Jorge [facility] 12:06:00 [facility] CALCIUM, IONIZED 2022-12-18 Juan, Jessee [facility] 12:06:00 [facility] CBC (HEMOGRAM ONLY) 2022-12-18 Juan, Jessee [facility] 12:06:00 [facility] MAGNESIUM 2022-12-18 Juan, Jessee [facility] 12:06:00 [facility] PHOSPHORUS 2022-12-18 Juan, Jessee [facility] 12:06:00 [facility] BLOOD GAS, ARTERIAL 2022-12-18 Juan, Jessee [facility] 12:06:00 [facility] BASIC METABOLIC PANEL 2022-12-[address] [facility] 12:06:00 [facility] AMMONIA 2022-12-18 Portillo, Rock B [facility] 12:06:00 [facility] ACTIN (SMOOTH MUSCLE) ANTIBODY, 2022-12-18 Portillo, [facility] B [facility] IGG 12:06:00 [facility] LIVER-KIDNEY MICROSOME AB 2022-12-18 Portillo, [facility] B [facility] 12:06:00 [facility] SOLUBLE LIVER ANTIGEN (SLA) 2022-12-18 Portillo, [facility] B [facility] 12:06:00 [facility] ANTI-DOUGLAS AB (NETBACKUP ADMINISTRATOR, DE [place] ROS[place]) 2022-12-18 Portillo, [facility] B [facility] 12:06:00 [facility] MITOCHONDRIAL AB SCREEN 2022-12-18 Portillo, [facility] 12:06:00 [facility] MITOCHONDRIAL AB TITER 2022-12-18 Portillo, [facility] 12:06:00 [facility] XR CHEST 1 VIEW PORTABLE / BEDSIDE 2022-12-18 Portillo, Rock Marie [facility] 10:49:00 [facility] HEPATITIS PANEL, ACUTE 2022-12-18 Juan, Jessee [facility] 10:22:00 [facility] ANTI-NUCLEAR ANTIBODY (COLTON) 2022-12-18 Portillo, Rock Marie [facility] 10:22:00 [facility] IMMUNOGLOBULIN G (IGG) 2022-12-18 Portillo, Rock Cynthia [facility] 10:22:00 [facility] LACTIC ACID, ARTERIAL 2022-12-18 Rumbaoa, Sam D [facility] 07:58:00 [facility] BLOOD GAS, ARTERIAL 2022-12-18 Juan, Jessee [facility] 07:58:00 [facility] BASIC METABOLIC PANEL 2022-12-[address] [facility] 07:58:00 [facility] PREPARE LEUKO-REDUCED RBC 2022-12-18 Egland, Mliad [facility] 06:52:00 [facility] PREPARE RBC [facility]22[facility]12-18 [facility] 06:52:00 [facility] POCT-GLUCOSE METER 2022-12-18 Portillo, Rock B [facility] 06:22:00 [facility] TRANSFUSE LEUKO-REDUCED RED BLOOD 2022-12-18 Egland, Milad [facility] CELLS 05:55:00 [facility] CALCIUM, IONIZED 2022-12-18 Juan, Jessee [facility] 03:43:00 [facility] POCT-GLUCOSE METER 2022-12-18 Portillo, Rock B [facility] 03:43:00 [facility] LACTIC ACID, ARTERIAL 2022-12-18 Rumbaoa, Sam D [facility] 03:42:00 [facility] LACTATE DEHYDROGENASE (LDH) 2022-12-18 Pete Sweet A [facility] 03:42:00 [facility] HAPTOGLOBIN 2022-12-18 Abel Sweetmna A [facility] 03:42:00 [facility] RETICULOCYTE COUNT 2022-12-18 Norma Sweeta A [facility] 03:42:00 [facility] PT/APTT 2022-12-[address] [facility] 03:42:00 [facility] FIBRINOGEN 2022-12-[address] [facility] 03:42:00 [facility] CBC W/PLT COUNT & AUTO 2022-12-18 Juan, Jessee [facility] DIFFERENTIAL 03:42:00 [facility] MAGNESIUM 2022-12-18 Juan, Jessee [facility] 03:42:00 [facility] PHOSPHORUS 2022-12-18 Juan, Jessee [facility] 03:42:00 [facility] BLOOD GAS, ARTERIAL 2022-12-18 Juan, Jessee [facility] 03:42:00 [facility] COMPREHENSIVE METABOLIC PANEL 2022-12-[address] [facility] 03:42:00 [facility] EQUAL MIX, NORMAL PLASMA 2022-12-18 Henderson, Tara [facility] 03:42:00 [facility] CBC W/PLT COUNT & AUTO 2022-12-18 Juan, Jessee [facility] DIFFERENTIAL 03:42:00 [facility] (CELLAVISION MANUAL DIFF) 2022-12-18 Juan, Jessee [facility] 03:42:00 [facility] POCT-GLUCOSE METER 2022-12-18 Lindsey Rock B [facility] 01:14:00 [facility] LACTIC ACID, ARTERIAL 2022-12-17 Rumbaoa, Sam D [facility] 23:39:00 [facility] BLOOD GAS, ARTERIAL 2022-12-17 Juan, Jessee [facility] 23:27:00 [facility] BASIC METABOLIC PANEL 2022-12-17 Milad Bañuelos [facility] 23:27:00 [facility] POCT-GLUCOSE METER 2022-12-17 Lindsey Rock B [facility] 23:26:00 [facility] BLOOD GAS, ARTERIAL 2022-12-17 Juan, Jessee [facility] 19:59:00 [facility] LACTIC ACID, ARTERIAL 2022-12-17 Rumbaoa, Sam D [facility] 19:58:00 [facility] CALCIUM, IONIZED 2022-12-17 Juan, Jessee [facility] 19:58:00 [facility] CBC (HEMOGRAM ONLY) 2022-12-17 Juan, Jessee [facility] 19:58:00 [facility] HEPATIC FUNCTION PANEL 2022-12-17 Juan, Jessee [facility] 19:58:00 [facility] MAGNESIUM 2022-12-17 Juan, Jessee [facility] 19:58:00 [facility] PHOSPHORUS 2022-12-17 Juan, Jessee [facility] 19:58:00 [facility] BASIC METABOLIC PANEL 2022-12-17 Brain, Rustam [facility] 19:58:00 [facility] POCT-GLUCOSE METER 2022-12-[address] [facility] 19:56:00 [facility] TRANSFUSE PLASMA 2022-12-17 Otuonye, Gene [facility] 16:25:00 [facility] BLOOD GAS, ARTERIAL 2022-12-17 Juan, Jessee [facility] 16:11:00 [facility] LACTIC ACID, ARTERIAL 2022-12-17 Rumbaoa, Sam D [facility] 16:10:00 [facility] BASIC METABOLIC PANEL 2022-12-17 Richardson, Rustam [facility] 16:10:00 [facility] FERRITIN 2022-12-[address] [facility] 16:10:00 [facility] IRON, TIBC, % SAT. (WITHOUT 2022-12-17 Beau Bai Juares [facility] FERRITIN) 16:10:00 [facility] TRIGLYCERIDES 2022-12-[address] Juares [facility] 16:10:00 [facility] BLOOD CULTURE 2022-12-[address] [facility] 15:20:00 [facility] US RENAL COMPLETE 2022-12-[address] [facility] 14:05:00 [facility] TRANSFUSE CRYOPRECIPITATE 2022-12-17 Otuonye, Gene [facility] 14:00:00 [facility] TRANSFUSE CRYOPRECIPITATE 2022-12-17 Otuonye, Gene [facility] 13:15:00 [facility] BLOOD GAS, ARTERIAL 2022-12-17 Juan, Jessee [facility] 12:20:00 [facility] ECG 12-LEAD 2022-12-17 Sahu, Azar [facility] 12:13:22 [facility] LACTIC ACID, ARTERIAL 2022-12-17 Rumbaoa, Sam D [facility] 12:09:00 [facility] PERIPHERAL BLOOD SMEAR - HOLD ONLY 2022-12-[address] [facility] 12:09:00 [facility] FACTOR 8 ACTIVITY 2022-12-[address] [facility] 12:09:00 [facility] FACTOR 10 ACTIVITY 2022-12-17 Richardson, Beau Juares [facility] 12:09:00 [facility] CALCIUM, IONIZED 2022-12-17 Juan, Jessee [facility] 12:08:00 [facility] CBC (HEMOGRAM ONLY) 2022-12-17 Juan, Jessee [facility] 12:08:00 [facility] MAGNESIUM 2022-12-17 Juan, Jessee [facility] 12:08:00 [facility] PHOSPHORUS 2022-12-17 Jaun, Jessee [facility] 12:08:00 [facility] COMPLEMENT, TOTAL (CH50) 2022-12-[address] [facility] 12:08:00 [facility] BASIC METABOLIC PANEL 2022-12-[address] [facility] 12:08:00 [facility] ANTIBODY IDENTIFICATION 2022-12-17 Rumbaoa, Sam D [facility] 11:55:00 [facility] BASIC METABOLIC PANEL 2022-12-17 Rock Portillo B [facility] 09:43:00 [facility] 2D ECHO W/ DOPPLER (CW/PW/COLOR) 2022-12-17 Sahu, Azar [facility] 08:59:20 [facility] BLOOD GAS, ARTERIAL 2022-12-17 Juan, Jessee [facility] 08:29:00 [facility] LACTIC ACID, ARTERIAL 2022-12-17 Rumbaoa, Sam D [facility] 08:28:00 [facility] RESPIRATORY PANEL 2022-12-17 Sahu, Azar [facility] 07:40:00 [facility] POCT-GLUCOSE METER 2022-12-17 Lopez Portillohu B [facility] 06:45:00 [facility] BLOOD GAS, ARTERIAL 2022-12-17 Sahu, Azar [facility] 05:55:00 [facility] AMMONIA 2022-12-17 Adhi, Mu [facility] 05:30:00 Nahid [facility] PROCALCITONIN 2022-12-[address] [facility] 05:04:00 [facility] CALCIUM, IONIZED 2022-12-17 Rumbaoa, Sam D [facility] 05:04:00 [facility] MAGNESIUM 2022-12-17 Rumbaoa, Sam D [facility] 05:04:00 [facility] PHOSPHORUS 2022-12-17 Rumbaoa, Sam D [facility] 05:04:00 [facility] CBC W/PLT COUNT & AUTO 2022-12-17 Sam Isaac D [facility] DIFFERENTIAL 05:04:00 [facility] PROTHROMBIN TIME/INR 2022-12-[address] [facility] 05:04:00 [facility] APTT 2022-12-[address] [facility] 05:04:00 [facility] LACTIC ACID, ARTERIAL 2022-12-17 [facility] 05:04:00 [facility] COMPREHENSIVE METABOLIC PANEL 2022-12-[address] [facility] 05:04:00 [facility] BILIRUBIN, DIRECT 2022-12-17 RumSam magaña D [facility] 05:04:00 [facility] LACTATE DEHYDROGENASE (LDH) 2022-12-17 Norma Sweeta A [facility] 05:04:00 [facility] HAPTOGLOBIN 2022-12-17 Abel Sweetmna A [facility] 05:04:00 [facility] HIGH SENSITIVITY TROPONIN I 2022-12-17 Sahu, Azar [facility] 05:04:00 [facility] RETICULOCYTE COUNT 2022-12-17 Pete Sweet A [facility] 05:04:00 [facility] COMPLEMENT COMPONENT C4 2022-12-[address] [facility] 05:04:00 [facility] BLOOD BANK EXTRA PINK KEDTA TOP 2022-12-[address] [facility] 05:04:00 [facility] CBC W/PLT COUNT & AUTO 2022-12-17 Rachaelarchana Sam Jorge [facility] DIFFERENTIAL 05:04:00 [facility] BLOOD GAS, ARTERIAL 2022-12-[address] [facility] 04:22:00 [facility] US ABDOMEN LIMITED 2022-12-[address] [facility] 04:10:00 [facility] XR CHEST 1 VIEW PORTABLE / BEDSIDE 2022-12-[address] [facility] 03:02:00 [facility] BLOOD GAS, ARTERIAL 2022-12-[address] [facility] 02:41:00 [facility] BASIC METABOLIC PANEL 2022-12-[address] [facility] 00:23:00 [facility] BILIRUBIN, DIRECT 2022-12-17 Adhi, Mu [facility] 00:23:00 [facility] BLOOD GAS, ARTERIAL 2022-12-[address] [facility] 00:21:00 [facility] BLOOD CULTURE 2022-12-17 RachaelKenny magañael Jorge [facility] 00:20:00 [facility] POCT-GLUCOSE METER 2022-12-16 Portillo, Rock B [facility] 23:19:00 [facility] POCT-BLOOD GASES, VENOUS 2022-12-16 Portillo, Rock [...] [facility]ukes 23:11:00 [facility] CALCIUM, IONIZED 2022-12-[address] [facility] 23:11:00 [facility] MAGNESIUM 2022-12-[address] [facility] 23:11:00 [facility] PHOSPHORUS 2022-12-16 Rachaeladityanisa Sam Shah [facility] 23:11:00 [facility] LACTIC ACID, VENOUS 2022-12-[address] [facility] 23:11:00 [facility] BLOOD GAS, VENOUS 2022-12-[address] [facility] 23:11:00 [facility] CBC W/PLT COUNT & AUTO 2022-12-[address] [facility] DIFFERENTIAL 23:11:00 [facility] PROTHROMBIN TIME/INR 2022-12-[address] [facility] 23:11:00 [facility] APTT 2022-12-[address] [facility] 23:11:00 [facility] HIGH SENSITIVITY TROPONIN I 2022-12-[address] [facility] 23:11:00 [facility] B-TYPE NATRIURETIC FACTOR (BNP) 2022-12-[address] [facility] 23:11:00 [facility] CREATINE KINASE (CK) 2022-12-[address] [facility] 23:11:00 [facility] HAPTOGLOBIN 2022-12-[address] [facility] 23:11:00 [facility] LACTATE DEHYDROGENASE (LDH) 2022-12-[address] [facility] 23:11:00 [facility] RETICULOCYTE COUNT 2022-12-[address] [facility] 23:11:00 [facility] PERIPHERAL BLOOD SMEAR - 2022-12-[address] [facility] PATHOLOGIST REVIEW 23:11:00 [facility]ER 2022-12-[address] [facility] 23:11:00 [facility] FIBRINOGEN 2022-12-16 Sahu, Azar [facility] 23:11:00 [facility] TSH/FREE T4 IF INDICATED 2022-12-[address] [facility] 23:11:00 [facility] VITAMIN B12 2022-12-[address] [facility] 23:11:00 [facility] TYPE AND SCREEN, AUTOMATED 2022-12-16 [facility] 23:11:00 [facility] DIRECT AHG (ARNOLD)/DIRECT SONDRA 2022-12-[address] Sam [address] [facility] 23:11:00 [facility] CBC W/PLT COUNT & AUTO 2022-12-[address] [facility] DIFFERENTIAL 23:11:00 [facility] (MANUAL DIFFERENTIAL) 2022-12-[address] [facility] 23:11:00 [facility] PERMANENT LAB REPORT - SCAN 2022-12-16 Provider, Default [facility] 00:00:00 Scanning [facility] HOME HEALTH - OTHER 2022-12-03 [facility] o f 06:01:00 Unassigned, No [facility] Name [place] AUTHORIZATION FOR RELEASE OF PHI 2022-11-22 [facility] of 06:01:00 Unassigned, No [facility] [place] ASSIGNMENT OF BENEFITS 2022-11-18 [facility] of 14:08:36 Unassigned, No [facility] [place] AUTHORIZATION FOR RELEASE OF PHI 2022-11-15 [facility] of 06:01:00 Unassigned, No [facility] [place] AUTHORIZATION FOR RELEASE OF PHI 2022-11-11 [facility] of 06:01:00 Unassigned, No [facility] HB ABO GROUPING 2022-10-29 Shena Perea [place] of 20:53:00 [facility] COMP. METABOLIC PANEL (08104) 2022-10-29 Shena Perea U niversity of 20:52:00 [facility] CBC WITH DIFF 2022-10-29 [facility] of 20:52:00 [facility] CONSENT/REFUSAL FOR DIAGNOSIS AND 2022-10-29 [facility] TREATMENT 20:01:41 Unassigned, No [facility] BASIC METABOLIC PANEL$W/EGFR-Q 2022-10-27 Elisha Araujo U niversity of 16:36:00 [facility] POCT-GLUCOSE METER 2022-10-[address] [facility] 11:05:00 [facility] POCT-GLUCOSE METER 2022-10-25 Ali, Hiba Tereso [facility] 07:47:00 [facility] BASIC METABOLIC PANEL 2022-10-25 Nalam, Livia Beth [facility] 03:35:00 [facility] MAGNESIUM 2022-10-25 Nalam, Livia Beth [facility] 03:35:00 [facility] CBC W/PLT COUNT & AUTO 2022-10-25 Nalam, Livia Beth [facility] DIFFERENTIAL 03:35:00 [facility] RETICULOCYTE COUNT 2022-10-25 Eziokwu, Akaolisa [facility] 03:35:00 [facility] LACTATE DEHYDROGENASE (LDH) 2022-10-25 Eziokwu, Akaolisa [facility] 03:35:00 [facility] HAPTOGLOBIN 2022-10-25 Nalam, Livia Beth [facility] 03:35:00 [facility] HEPATIC FUNCTION PANEL 2022-10-25 Nalam, Livia Beth [facility] 03:35:00 [facility] CBC W/PLT COUNT & AUTO 2022-10-25 Nalam, Livia Beth [facility] DIFFERENTIAL 03:35:00 [facility] POCT-GLUCOSE METER 2022-10-24 Ali, Hiba Tereso [facility] 23:11:00 [facility] POCT-GLUCOSE METER 2022-10-24 Ali, Hiba Tereso [facility] 17:33:00 [facility] POCT-GLUCOSE METER 2022-10-24 Ali, Hiba Tereso [facility] 11:39:00 [facility] POCT-GLUCOSE METER 2022-10-24 Ali, Hiba Tereso [facility] 07:36:00 [facility] BASIC METABOLIC PANEL 2022-10-24 Nalam, Livia Beth [facility] 03:12:00 [facility] MAGNESIUM 2022-10-24 Nalam, Livia Beth [facility] 03:12:00 [facility] CBC W/PLT COUNT & AUTO 2022-10-24 Nalam, Livia Beth [facility] DIFFERENTIAL 03:12:00 [facility] RETICULOCYTE COUNT 2022-10-24 Eziokwu, Akaolisa [facility] 03:12:00 [facility] LACTATE DEHYDROGENASE (LDH) 2022-10-24 Eziokwu, [facility]kaolisa [facility] 03:12:00 [facility] C-REACTIVE PROTEIN 2022-10-24 Nalam, Livia Beth [facility] 03:12:00 [facility] HAPTOGLOBIN 2022-10-24 Nalam, Livia Beth [facility] 03:12:00 [facility] HEPATIC FUNCTION PANEL 2022-10-24 Nalam, Livia Beth [facility] 03:12:00 [facility] CBC W/PLT COUNT & AUTO 2022-10-24 Nalam, Livia Beth [facility] DIFFERENTIAL 03:12:00 [facility] POCT-GLUCOSE METER 2022-10-23 Ali, Hiba Tereso [facility] 21:50:00 [facility] POCT-GLUCOSE METER 2022-10-23 Ali, Hiba Tereso [facility] 17:24:00 [facility] ANTIBODY IDENTIFICATION 2022-10-23 Nalam, Livia Beth [facility] 12:29:00 [facility] POCT-GLUCOSE METER 2022-10-23 Ali, Hiba Tereso [facility] 12:20:00 [facility] POCT-GLUCOSE METER 2022-10-23 Ali, Hiba Tereso [facility] 09:26:00 [facility] BASIC METABOLIC PANEL 2022-10-23 Nalam, Livia Beth [facility] 04:28:00 [facility] MAGNESIUM 2022-10-23 Nalam, Livia Beth [facility] 04:28:00 [facility] CBC W/PLT COUNT & AUTO 2022-10-23 Nalam, Livia Beth [facility] DIFFERENTIAL 04:28:00 [facility] RETICULOCYTE COUNT 2022-10-23 Eziokwu, Akaolisa [facility] 04:28:00 [facility] LACTATE DEHYDROGENASE (LDH) 2022-10-23 Eziokwu, [facility]olisa [facility] 04:28:00 [facility] C-REACTIVE PROTEIN 2022-10-23 Nalam, Livia Beth [facility] 04:28:00 [facility] FERRITIN 2022-10-23 Nalam, Livia Beth [facility] 04:28:00 [facility] HAPTOGLOBIN 2022-10-23 Nalam, Livia Beth [facility] 04:28:00 [facility] HEPATIC FUNCTION PANEL 2022-10-23 Nalam, Livia Beth [facility] 04:28:00 [facility] HEMOGLOBIN A1C 2022-10-23 Nalam, Livia Beth [facility] 04:28:00 [facility] CBC W/PLT COUNT & AUTO 2022-10-23 Nalam, Livia Beth [facility] DIFFERENTIAL 04:28:00 [facility] ABORH, MANUAL 2022-10-[address] [facility] 02:02:00 [facility] POCT-GLUCOSE METER 2022-10-22 Nalam, Livia Beth [facility] 22:41:00 [facility] XR ABDOMEN/KUB 1 VIEW PORTABLE 2022-10-22 Nalam, Livia Beth [facility] 17:23:00 [facility] D-DIMER 2022-10-22 Nalam, Livia Beth [facility] 16:29:00 [facility] CBC W/PLT COUNT & AUTO 2022-10-22 Nalam, Livia Beth [facility] DIFFERENTIAL 11:33:00 [facility] RETICULOCYTE COUNT 2022-10-22 Nalam, Livia Beth [facility] 11:33:00 [facility] PERIPHERAL BLOOD SMEAR - HOLD ONLY 2022-10-22 Nalam, Livia Beth [facility] 11:33:00 [facility] DIRECT AHG (ARNOLD)/DIRECT SONDRA 2022-10-22 Nalam, Livia Beth [facility] 11:33:00 [facility] TYPE AND SCREEN, AUTOMATED 2022-10-22 Nalam, Livia Beth [facility] 11:33:00 [facility] CBC W/PLT COUNT & AUTO 2022-10-22 Nalam, Livia Beth [facility] DIFFERENTIAL 11:33:00 [facility] COMPREHENSIVE METABOLIC PANEL 2022-10-22 Nalam, Livia Beth [facility] 11:32:00 [facility] MAGNESIUM 2022-10-22 Nalam, Livia Beth [facility] 11:32:00 [facility] LACTATE DEHYDROGENASE (LDH) 2022-10-22 Nalam, Livia Beth [facility] 11:32:00 [facility] BILIRUBIN, DIRECT 2022-10-22 Nalam, Livia Beth [...] Nalam, Livia Beth [facility] 11:31:00 [facility] PT/APTT 2022-10-22 Nalam, Livia Beth [facility] 11:31:00 [facility] EKG-SCANNED 2022-10-22 Provider, Jeff [facility] 00:00:00 Scanning [facility] COMP. METABOLIC PANEL (09612) 2022-10-19 Tina Curtis Un iversity of 11:22:00 [facility] GIARDIA CRYPTOSPORIDIUM AG SCR 2022-10-19 Tina Curtis U niversity of 05:09:00 [facility] FECAL PATHOGENS BY PCR 2022-10-19 Tina Curtis [facility] y of 05:09:00 [facility] CT ABDOMEN PELVIS W CONTRAST 2022-10-18 Kemal Myers niversity of 23:00:00 [facility] POCT TEST 2022-10-18 [facility] of 22:15:00 [facility] LIPASE 2022-10-18 [facility] of 22:08:00 [facility] FREE T4 2022-10-18 [facility] 22:08:00 [facility] THYROID STIMULATING HORMONE 2022-10-18 Tina Curtis Univ ersity of 22:08:00 [facility] COMP. METABOLIC PANEL (67188) 2022-10-18 [facility] of 22:08:00 [facility] CBC WITH DIFF 2022-10-18 [facility] of 22:08:00 F [facility] URINALYSIS 2022-10-18 Kemal Myers [place] of 22:08:00 [facility] CONSENT/REFUSAL FOR DIAGNOSIS AND 2022-10-18 [facility] 20:52:07 Unassigned, No [facility] URINE CULTURE 2022-10-18 [facility] 17:46:00 [facility] BASIC METABOLIC PANEL (NA, K, CL, 2022-10-18 [facility] CO2, GLUCOSE, BUN, CREATININE, CA) 17:24:00 [facility] C-REACTIVE PROTEIN 2022-10-18 [facility] 17:24:00 [facility] POCT URINALYSIS AUTO 2022-10-18 [facility] 16:15:00 [facility] DISCLOSURE AND CONSENT, MEDICAL 2022-10-18 [facility] AND SURGICAL PROCEDURES 06:01:00 Unassigned, No [facility] HOSPITAL ADMISSION 2022-10-18 [facility] 06:01:00 Unassigned, No [facility] LACTIC ACID WHOLE BLOOD 2022-10-07 [facility] 18:28:00 [facility] LIPASE 2022-10-07 [facility] 18:16:00 [facility] COMP. METABOLIC PANEL (63487) 2022-10-07 Destiny Oneill iversity of 18:16:00 [facility] CBC WITH DIFF 2022-10-07 Destiny Oneill of 18:16:00 [facility] URINALYSIS 2022-10-07 Destiny Oneill [place] of 18:16:00 [facility] CONSENT/REFUSAL FOR DIAGNOSIS AND 2022-10-07 [facility] 16:58:17 Unassigned, No [facility] POCT HEMOGLOBIN A1C TEST 2022-08-24 Tray Jolly ity of 00:00:00 [facility] DME/SUPPLY JUSTIFICATION 2022-08-05 [facility] ity of 06:01:00 Unassigned, No [facility] SARS-COV-2 COVID-19 CHRISTELLE-SUCROSE 2022-07-27 Tray Jolly [place] of VACCINE 12 YRS+, BIVALENT 0.3ML, 13:13:29 [facility], (PFIZER [employer]OUNT[employer] TOP [employer]ER) Br anch MEDICATION CORRESPONDENCE 2022-07-19 Doctor Ivan sit of 05:01:00 Unassigned, No [facility] DISABILITY/FMLA 2022-07-01 Doctor [place] of 05:01:00 Unassigned, No [facility] MR THORACIC SPINE WO CONTRAST 2022-06-30 Brunilda, Crystal Un iversity of 16:22:01 [facility] MR CERVICAL SPINE WO CONTRAST 2022-06-30 Brunilda, Crystal Un iversity of 16:20:35 [facility] CONSENT/REFUSAL FOR DIAGNOSIS AND 2022-06-30 [facility] 14:32:21 Unassigned, No [facility] CONSENT/REFUSAL FOR DIAGNOSIS AND 2022-06-30 [facility] 14:32:20 Unassigned, No [facility] INSURANCE CORRESPONDENCE 2022-06-17 Doctor [facility] it of 05:01:00 Unassigned, No [facility] POWER OF TAPPER BALANCE WHEEL SCREW HOLE 2022-06-01 [facility] of 05:01:00 Unassigned, No [facility] POWER OF TAPPER BALANCE WHEEL SCREW HOLE 2022-05-13 [facility] 05:01:00 Unassigned, No [facility] DME/SUPPLY JUSTIFICATION 2022-05-06 [facility] it of 05:01:00 Unassigned, No [facility] EMG/NCV 2022-04-08 [facility] 14:43:00 [facility] CONSENT/REFUSAL FOR DIAGNOSIS AND 2022-03-27 [facility] 12:40:53 Unassigned, No [facility] PHYSICIAN ORDERS 2022-03-19 Doctor [place] of 05:01:00 Unassigned, No [facility] COLONOSCOPY (ENDO) 2022-03-02 Tray Jolly [place] of 14:43:32 [facility] COLONOSCOPY (ENDO) 2022-03-02 Rik [facility] of 14:43:32 [facility] COLONOSCOPY 2022-03-02 [facility] of 14:02:00 [facility] ESOPHAGOGASTRODUODENOSCOPY 2022-03-02 [facility] of 14:02:00 [facility] EGD (ENDO) 2022-03-02 Veselka, [facility] of 13:53:24 [facility] EGD (ENDO) 2022-03-02 [facility] 13:53:24 [facility] POCT GLUCOSE(AGE >30DAYS) 2022-03-02 [facility] 12:59:00 [facility] [facility] POCT GLUCOSE(AGE >30DAYS) 2022-03-02 [facility] ersity of 12:59:00 [facility] POCT GLUCOSE (AUTOMATED) 2022-03-02 [facility] 12:58[facility]00 [facility] POCT GLUCOSE (AUTOMATED) 2022-03-02 Cecile Asher [facility] sity of 12:58:00 [facility] POCT TEST 2022-03-02 [facility] of 12:48:00 [facility] POCT TEST 2022-03-02 [facility] of 12:48:00 [facility] DAY SURGERY - ADC 2022-03-02 [facility] of 05:01:00 Unassigned, No [facility] DME/SUPPLY JUSTIFICATION 2022-01-04 [facility] of 05:01:00 Unassigned, No [facility] DME/SUPPLY JUSTIFICATION 2022-01-04 Doctor Univers ity of 05:01:00 Unassigned, No [facility] DISCLOSURE AND CONSENT, MEDICAL 2021-12-28 [facility] of AND SURGICAL PROCEDURES 05:01:00 Unassigned, No [facility] dical Name Branch DISCLOSURE AND CONSENT, MEDICAL 2021-12-28 [facility] AND SURGICAL PROCEDURES 05:01:00 Unassigned, No [facility] dical Name Branch Plan of Care Planned Activity Planned Date Details Comments Source Future Scheduled 2032-03-02 Screening for malignant [facility] Test 00:00:00 neoplasm of colon Medical Ce nter (procedure) [code = 901424021] Future Scheduled 2032-03-02 Screening for malignant [facility] Test 00:00:00 neoplasm of colon Medical Ce nter (procedure) [code = 218989996] Future Scheduled 2032-03-02 Screening for malignant [facility] Test 00:00:00 neoplasm of colon Medical Ce nter (procedure) [code = 154083643] Future Scheduled 2032-03-02 Screening for malignant [facility] Test 00:00:00 neoplasm of colon Medical Ce nter (procedure) [code = 788741109] Future Scheduled 2032-03-02 Screening for malignant [facility] Test 00:00:00 neoplasm of colon Medical Ce nter (procedure) [code = 255348330] Future Scheduled 2032-03-02 Screening for malignant [facility] Test 00:00:00 neoplasm of colon Medical Ce nter (procedure) [code = 673439303] Future Scheduled 2032-03-02 Screening for malignant [facility] Test 00:00:00 neoplasm of colon Medical Ce nter (procedure) [code = 589835655] Future Scheduled 2032-03-02 Screening for malignant [facility] Test 00:00:00 neoplasm of colon Medical Ce nter (procedure) [code = 362992802] Future Scheduled 2032-03-02 Screening for malignant [facility] Test 00:00:00 neoplasm of colon Medical Ce nter (procedure) [code = 227434615] Future Scheduled 2032-03-02 Screening for malignant [facility] Test 00:00:00 neoplasm of colon Medical Ce nter (procedure) [code = 313001997] Future Scheduled 2032-03-02 Screening for malignant [facility] Test 00:00:00 neoplasm of colon Medical Ce nter (procedure) [code = 596072955] Future Scheduled 2032-03-02 Screening for malignant [facility] Test 00:00:00 neoplasm of colon Medical Ce nter (procedure) [code = 708594276] Future Scheduled 2032-03-02 Screening for malignant [facility] 00:00:00 neoplasm of colon Medical Ce nter (procedure) [code = 082817271] Future Scheduled 2032-03-02 Screening for malignant [facility] 00:00:00 neoplasm of colon Medical Ce nter (procedure) [code = 016087936] Future Scheduled 2029-08-10 DTAP/TDAP/TD VACCINES CH [facility] [...] [facility] 00:00:00 [code = 47340661] Medical Ce nter Future Scheduled 2018 Lipid panel (procedure) [facility] 00:00:00 [code = 06586533] Medical Ce nter Future Scheduled 2018 Lipid panel (procedure) [facility] 00:00:00 [code = 91498699] Medical Ce nter Future Scheduled 2018 Lipid panel (procedure) [facility] 00:00:00 [code = 86142952] Medical Ce nter Future Scheduled 2018 Lipid panel (procedure) [facility] 00:00:00 [code = 90353759] Medical Ce nter Future Scheduled 2018 Lipid panel (procedure) [facility] 00:00:00 [code = 60050963] Medical Ce nter Future Scheduled 2018-06-08 Lipid panel (procedure) [facility] 00:00:00 [code = 91703739] Medical Ce nter Future Scheduled 1994 Screening for malignant [facility] 00:00:00 neoplasm of cervix Medical C enter (procedure) [code = 875468877] Future Scheduled 1994 Screening for malignant [facility] 00:00:00 neoplasm of cervix Medical C enter (procedure) [code = 828598858] Future Scheduled 1994 Screening for malignant [facility] 00:00:00 neoplasm of cervix Medical C enter (procedure) [code = 889940386] Future Scheduled 1994 Screening for malignant [facility] 00:00:00 neoplasm of cervix Medical C enter (procedure) [code = 566716264] Future Scheduled 1994 Screening for malignant [facility] 00:00:00 neoplasm of cervix Medical C enter (procedure) [code = 776482833] Future Scheduled 1994 Screening for malignant [facility] 00:00:00 neoplasm of cervix Medical C enter (procedure) [code = 310869475] Future Scheduled 1994 Screening for malignant [facility] 00:00:00 neoplasm of cervix Medical C enter (procedure) [code = 990583505] Future Scheduled 1991 HEPATITIS C SCREENING [facility] [...] [facility] 00:00:00 [code = CT Colonography [facility] (combo)] Future Scheduled 1973 Screening for malignant [facility] 00:00:00 neoplasm of colon Medical Ce nter (procedure) [code = 441298436] Future Scheduled 1973 Screening for malignant [facility] 00:00:00 neoplasm of colon Medical Ce nter (procedure) [code = 411140150] Future Scheduled 1973 Sigmoidoscopy [facility]code [facility] Medical Cente r Future Scheduled 1973 CT Colonography (combo) [facility] 00:00:00 [code = CT Colonography [facility] (combo)] Future Scheduled 1973 Screening for malignant [facility] 00:00:00 neoplasm of colon Medical Ce nter (procedure) [code = 527096543] Future Scheduled 1973 Screening for malignant [facility] 00:00:00 neoplasm of colon Medical Ce nter (procedure) [code = 362743090] Future Scheduled 1973 Sigmoidoscopy [facility]code [facility]oscopy] Medical Cente r Future Scheduled 1973 CT Colonography (combo) [facility] 00:00:00 [code = CT [facility] Future Scheduled 1973 Screening for malignant [facility] 00:00:00 neoplasm of colon Medical Ce nter (procedure) [code = 418301238] Future Scheduled 1973 Screening for malignant [facility] 00:00:00 neoplasm of colon Medical Ce nter (procedure) [code = 341412379] Future Scheduled 1973 Sigmoidoscopy [facility]code [facility] S[facility]oscopy] Medical Alinee r Future Scheduled 1973 CT Colonography (combo) [facility] 00:00:00 [code = CT [facility] ([facility])] Future Scheduled 1973 Screening for malignant [facility] 00:00:00 neoplasm of colon Medical Ce nter (procedure) [code = 011932808] Future Scheduled 1973 CT Colonography (combo) [facility] 00:00:00 [code = CT [facility] ([facility])] Future Scheduled 1973 Screening for malignant [facility] 00:00:00 neoplasm of colon Medical Ce nter (procedure) [code = 827174540] Future Scheduled 1973 Screening for malignant [facility] 00:00:00 neoplasm of colon Medical Ce nter (procedure) [code = 087863127] Future Scheduled 1973 Sigmoidoscopy [facility]code [facility]oscopy] Medical Alinee r Future Scheduled 1973 Screening for malignant [facility] 00:00:00 neoplasm of colon Medical Ce nter (procedure) [code = 229009920] Future Scheduled 1973 Sigmoidoscopy [facility]code [facility] S[facility]oidoscopy] Medical Cente r Future Scheduled 1973 CT Colonography (combo) [facility] 00:00:00 [code = CT [facility])] Future Scheduled 1973 Screening for malignant [facility] 00:00:00 neoplasm of colon Medical Ce nter (procedure) [code = 072702516] Future Scheduled 1973 Screening for malignant [facility] 00:00:00 neoplasm of colon Medical Ce nter (procedure) [code = 055247495] Future Scheduled 1973 Sigmoidoscopy [facility]code [facility] S[facility]oscopy] Medical Cente r Future Scheduled 1973 CT Colonography (combo) [facility] 00:00:00 [code = CT Colonography [facility] (combo)] Future Scheduled 1973 Screening for malignant [facility] 00:00:00 neoplasm of colon Medical Ce nter (procedure) [code = 456279868] Future Scheduled 1973 Screening for malignant [facility] 00:00:00 neoplasm of colon Medical Ce nter (procedure) [code = 947052305] Future Scheduled 1973 Sigmoidoscopy [facility]code [facility] S[facility]oscopy] Medical Germaine r Encounters Start End Encounter Admission Attending Care Care Encounter Source Date/Time Date/Time Type Type Clinicians Facility Department ID 2022-12-31 [id number] Univers 11:33:58 SHEMKR itjay o f [facility] 2022-02-16 [facility] [id number] Univers 10:29:45 CECILE [facility] 2021-12-01 [facility] M[facility] [id number] Univers 13:05:09 [facility]04 [facility] [id number] Univers 15:43:22 [facility] 2021-07-27 Emergency [facility] [id number] Univers 19:11:28 ity [facility] 2021-07-27 Emergency [facility] [id number] Univers 10:12:30 ity [facility] 2021-07-27 Emergency [facility] [id number] Univers 06:35:13 ity [facility] 2021-07-27 Emergency [facility] [id number] Univers 04:01:19 ity [facility] 2021-07-26 Emergency [facility] [id number] Univers 12:06:22 ity [facility] 2021-07-26 Emergency [facility] [id number] Univers 11:43:46 [facility] 2023-07-14 2023-07-21 Inpatient MHJEWELL [facility] [id number] Memoria 20:43:00 22:06:[address] 2023-07-14 2023-07-21 Inpatient MHJEWELL [facility] [id number] Memoria 20:43:00 22:06:[address] 2023-07-14 2023-07-21 Outpatient Miguel MHSE MHSE [id number] 15:43:00 17:06:00 Iva 90 2023-07-14 2023-07-21 Inpatient E MIGUEL [facility] MED [id number] 15:43:00 17:06:00 IVA 90 [facility] 2023-06-17 2023-07-11 Inpatient MHJEWELL [facility] [id number] Memoria 14:09:49 22:21:[address] 2023-06-17 2023-07-11 [facility] [id number] Memoria 14:09:49 22:21:[address] 2023-06-17 2023-07-11 Inpatient E DIVINE [facility] [id number] 12:24:00 17:21:00 [facility] 2023-07-11 Outpatient Ever MHSE MHSE [id number] 09:09:49 17:21:00 Gyanendra 01 [place] 2023-05-08 2023-05-14 Inpatient [facility]IA [facility] [id number] [facility] 13:08:00 13:48:00 Cuca Martin [facility] 2023-05-08 2023-05-08 Outpatient MICHELLE NorthAlmanzaEMRE LABO [id number] [facility] 05:54:00 05:54:00 Peterson Dozier [facility] 2023-05-01 2023-05-06 Inpatient MHIE [facility] [id number] Memoria 23:51:26 19:00:[address] 2023-05-01 2023-05-06 Inpatient [facility] [id number] Memoria 23:51:26 19:00:[address] 2023-05-01 2023-05-06 Outpatient Fran MHPL [facility] [id number] 18:51:26 14:00:00 n, Johanny 00 [facility]-04-21 2023-04-27 Inpatient EM Lelia Hassan [facility] MEDI.01 [id number] [facility] 13:37:00 17:52:00 10 [facility] 2023-03-11 2023-03-31 Inpatient EM Josephine [facility]ACL INTE.02 [id number] [facility] 06:54:00 18:09:00 [facility] 2023-03-23 2023-03-23 Outpatient Yadi JOLLY [facility] [id number] Univers 14:30:00 14:30:00 TRAY ity [facility] 2023-03-10 2023-03-10 Orders Doctor BON 1.2.840.114 [id number] Univers 00:00:00 00:00:00 Only Unassigned, GRAYSON 350.1.13.10 ity of [place] [facility] 4.2.7.2.686 Emanuel as [id number] [facility] 009 Branch 2023-03-07 2023-03-07 Office Aubrie Lin [facility] 1.2.840.114 [id number] Univers 10:00:00 10:30:00 Visit SPECIALTY 350.1.13.10 [place] [id number] [facility] 387 Branch 2023-03-07 2023-03-07 Outpatient R AUBRIE LIN [facility] [id number] Univers 10:00:00 10:00:00 ity of [facility] 2023-03-04 2023-03-04 Telephone Aubrie Lin [facility] 1.2.840.114 [id number] Univers 00:00:00 00:00:00 SPECIALTY 350.1.13.10 [place] [id number] [facility] 387 Branch 2023-02-28 2023-02-28 Orders Doctor BON 1.2.840.114 [id number] Univers 00:00:00 00:00:00 Only Unassigned, GRAYSON 350.1.13.10 ity of [place] [facility] 4.2.7.2.686 Emanuel as [phone] [facility] 009 Branch 2023-02-23 2023-02-24 Emergency EM Oliver, HCACL AERS [id number] [facility] 20:56:00 00:05:00 Tarun 94 [place] [facility] 2023-02-16 2023-02-22 Outpatient X TONA [facility] [id number] Univers 21:35:00 12:56:00 JENNIFER [facility] 2023-02-16 2023-02-22 Emergency Dafne Navarro [facility] 1.2.840.114 [id number] Univers 21:35:00 12:56:00 Jennifer Carbone [facility] 350.1.13.10 ity of [place] [id number] [facility] 113 Branch (CLC) 2023-02-22 2023-02-22 Outpatient Yadi JOLLY [facility] [id number] Univers 09:15:00 09:15:00 TARY [facility] 2023-02-07 2023-02-15 Inpatient ER JOSE, [facility] General Med [id number] [facility] 00:59:00 17:15:00 DEON 2023-02-10 2023-02-10 Outpatient R NAV ANTONIO [facility] [id number] Univers 08:30:00 08:30:00 [facility] 2023-02-06 2023-02-07 Outpatient Js SPANGLER Bill [facility] [id number] [place] 17:35:00 00:29:00 DANNI [facility] 2022-12-16 2023-02-04 Inpatient UR SUMMER, [facility] Surgery [id number] [facility] 22:24:00 18:21:00 LAZARO 2023-02-04 2023-02-[address] [facility] [id number] 00:[facility] 00[facility]00 [facility] 2023-01-28 2023-01-[address] [facility] [id number] 00:00[facility] 00:00:00 [facility] 2023-01-20 2023-01-[address] [facility] [id number] 16:14:00 19:25:00 Event Sea [facility] 2023-01-20 2023-01-[address] [facility] [id number] 15:00:00 17:13:00 [facility] 2023-01-12 2023-01-12 [id number] [facility] 11:30:00 11:30:00 MARIBEL packer [facility] 2023-01-09 2023-01-09 Telephone [facility] 1.2.840.114 [id number] [facility] 00:00:00 00:00:00 [facility] 350.1.13.10 it y of [place] 4.2.7.2.686 Emanuel as JOLLY?BLEA [id number] [address] OFFICE [facility] 2023-01-07 2023-01-07 Telephone [facility] 1.2.840.114 [id number] Univers 00:00:00 00:00:00 [facility] HEALTH 350.1.13.10 it y of [place] 4.2.7.2.686 Emanuel as JOLLY?BLEA [id number] [address] OFFICE [facility] 2023-01-03 2023-01-[address] [facility] [id number] 07:59:00 13:18:00 Event Constantino Mor[facility] 2023-01-03 2023-01-[address] [facility] [id number] 08:00:00 11:58:00 Ricki Shah [facility] 2023-01-03 2023-01-03 [facility] 1.2.840.114 [id number] Univers 00:00:00 00:00:00 [facility] 350.1.13.10 it y of [place] 4.2.7.2.686 Emanuel as JOLLY?BLEA [id number] [address] MEDICAL OFFICE BUILDING 2022-12-31 2022-12-31 Surgery Tila, [facility] [id number] 15:00:00 19:01:00 Bernarda [facility] 2022-12-31 2022-12-31 Anesthesia Jennifer, [facility] [id number] 13:37:00 17:20:00 [facility] 2022-12-31 2022-12-[address] [facility] [id number] 00:00:00 00:00:00 [facility] 2022-12-30 2022-12-[address] [facility] [id number] 00:00:00 00:00:00 [facility] 2022-12-30 2022-12-[address] [facility] [id number] 00:00:00 00:00:00 [facility] 2022-12-30 2022-12-[address] [facility] [id number] 00:00:00 00:00:00 [facility] 2022-12-27 2022-12-[address] [facility] [id number] 00:00:00 00:00:00 [facility] 2022-12-27 2022-12-[address] [facility] [id number] 00:00:00 00:00:00 [facility] 2022-12-21 2022-12-[address] [facility] [id number] 00:00:00 00:00:00 [facility] 2022-12-20 2022-12-[address] [facility] [id number] 00:00:00 00:00:00 [facility] 2022-12-20 2022-12-[address] [facility] [id number] 00:00:00 00:00:00 [facility] 2022-12-20 2022-12-[address] [facility] [id number] 00:00:00 00:00:00 [facility] 2022-12-20 2022-12-[address] [facility] [id number] 00:00:00 00:00:00 Roseline jaime [facility] 2022-12-20 2022-12-[address] [facility] [id number] 00:00:00 00:00:00 [facility] 2022-12-20 2022-12-20 Orders Doctor BON Nelson2.840.114 [id number] Univers 00:00:00 00:00:00 Only Unassigned, GRAYSON 350.1.13.10 ity of [place] [facility] 4.2.7.2.686 Emanuel as [id number] [facility] 009 Branch 2022-12-06 2022-12-06 Patient Doctor BON Nelson2.840.114 [id number] Univers 00:00:00 00:00:00 Secure Msg Unassigned, GRAYSON 350.1.13.10 ity of [place] [facility] 4.2.7.2.686 Emanuel as [id number] [facility] 019 Branch 2022-12-03 2022-12-03 Orders Doctor BON Nelson2.840.114 [id number] Univers 00:00:00 00:00:00 Only Unassigned, GRAYSON 350.1.13.10 ity of [place] [facility] 4.2.7.2.686 Emanuel as [id number] [address] 2022-11-30 2022-11-30 Reffranchesca [facility] 1.2.840.114 [id number] Univers 00:00:00 00:00:00 Wondiful A HEALTH 350.1.13.10 ity of [place] 4.2.7.2.686 Emanuel as JOLLY?BLEA [id number] Nv dical ARLENEEY [address] [place] MEDICAL OFFICE BUILDING 2022-11-25 2022-11-25 Outpatient NAV GIANG [facility] [id number] Univers 00:00:00 00:00:00 ity of [facility] 2022-11-21 2022-11-24 Inpatient JUDY Lopez MAS [id number] [facility] 12:57:00 14:58:00 Neris 86 [facility] 2022-11-24 2022-11-24 Outpatient Yadi JOLLY [facility] [id number] Univers 09:45:00 09:45:00 TRAY ity of [facility] 2022-11-22 2022-11-22 Orders Doctor BON 1.2.840.114 [id number] Univers 00:00:00 00:00:00 Only Unassigned, GRAYSON 350.1.13.10 ity of [place] [facility] 4.2.7.2.686 Emanuel as [id number] [address] 2022-11-21 2022-11-21 Outpatient EMRE Estrada LABO [id number] [facility] 01:06:00 01:06:00 Neris 52 [facility] 2022-11-18 2022-11-18 Outpatient NAV GIANG [facility] [id number] Univers 08:00:00 09:08:00 ity of [facility] 2022-11-18 2022-11-18 Office Wally Nav [facility] 1.2.695.833 [id number] Univers 08:00:00 09:08:00 Visit Cam JG 350.1.13.10 i ty of [place] [id number] Nv gabi BARNEY 134 [facility] 2022-11-18 2022-11-18 Orders Doctor BON 1.2.840.114 [id number] Univers 00:00:00 00:00:00 Only Unassigned, GRAYSON 350.1.13.10 ity of [place] [facility] 4.2.7.2.686 Emanuel as [id number] [facility] [address] [place] 2022-11-17 2022-11-17 [facility] 1.2.840.114 [id number] Univers 00:00:00 00:00:00 Maribel GREGORIO 350.1.13.10 ity of [place] [id number] Nv dical NAL 204 [facility] 2022-11-16 2022-11-16 [facility] 1.2.450.315 [id number] Univers 00:00:00 00:00:00 Cecile GREGORIO 350.1.13.10 i ty of [place] [id number] Nv dical NAL 188 [facility] 2022-11-15 2022-11-15 Orders Doctor BON 1.2.840.114 [id number] Univers 00:00:00 00:00:00 Only Unassigned, GRAYSON 350.1.13.10 ity of [place] [facility] 4.2.7.2.686 Emanuel as [id number] [facility] [address] [place] 2022-11-12 2022-11-12 [facility] 1.2.840.114 [id number] Univers 00:00:00 00:00:00 [facility] 350.1.13.10 it y of [place] [facility] 4.2.7.2.686 Emanuel as JOLLY?BLEA [phone] Nv dical KNEY 044 [facility] [place][note 2] 2022-11-12 2022-11-12 Patient Doctor BON 1.2.840.114 [id number] Univers 00:00:00 00:00:00 Secure Msg Unassigned, GRAYSON 350.1.13.10 ity of [place] [facility] 4.2.7.2.686 Emanuel as [id number] [facility] 019 Branch 2022-11-11 2022-11-11 Telephone Saira BRANDON 1.2.840.114 [id number] Univers 00:00:00 00:00:00 Bon Dionne Jay HEALTH 350.1.13.10 i ty of [place] [id number] [facility] 080 Branch 2022-11-11 2022-11-11 Orders Doctor BON 1.2.840.114 [id number] Univers 00:00:00 00:00:00 Only Unassigned, GRAYSON 350.1.13.10 ity of [place] [facility] 4.2.7.2.686 Emanuel as [id number] [facility] 009 Branch 2022-11-09 2022-11-09 Telephone [facility] 1.2.918.611 [id number] Univers 00:00:00 00:00:00 Vik L HEALTH 350.1.13.10 it y of [place] [place] [facility] [id number] [facility] PRIMARY & [address] SPECIALTY CARE 2022-11-08 2022-11-08 Telephone [facility] 1.2.840.114 [id number] Univers 00:00:00 00:00:00 Tray HEALTH 350.1.13.10 it y of [facility] 4.2.7.2.686 Emanuel as JOLLY?BLEA [id number] [address] MEDICAL OFFICE BUILDING 2022-11-05 2022-11-05 Patient Doctor BON 1.2.840.114 [id number] Univers 00:00:00 00:00:00 Secure Msg Unassigned, GRAYSON 350.1.13.10 ity of [place] [facility] 4.2.7.2.686 Emanuel as [id number] [facility] 019 Branch 2022-11-04 2022-11-04 [facility]phone [facility] System [facility] 1.2.840.114 [id number] Univers 00:00:00 00:00:00 Tray HEALTH 350.1.13.10 it y of [place] [facility] 4.2.7.2.686 Emanuel as JOLLY?BLEA [id number] [address] 2022-11-01 2022-11-01 Outpatient [facility] [id number] Univers 14:30:00 14:30:00 TRAY jay [facility] 2022-11-01 2022-11-01 [facility]ill [facility] 1.2.840.114 [id number] Univers 00:00:00 00:00:00 Tray HEALTH 350.1.13.10 it y of [place] 4.2.7.2.686 Emanuel as JOLLY?BLEA [id number] [address] 2022-10-29 2022-10-29 Emergency [facility] ERT [id number] Univers 14:24:00 16:45:00 SHENA phillipsjay [facility] 2022-10-29 2022-10-29 Emergency [facility] 1.2.840.114 10 [id number] Univers 14:24:00 16:45:00 Shena GREGORIO 350.1.13.10 ity of [place] 4.2.7.2.686 [place] [facility] [id number] [address] 2022-10-29 2022-10-29 Telephone [facility] 1.2.983.433 [id number] Univers 00:00:00 00:00:00 Elisha HEALTH 350.1.13.10 it y of [place] 4.2.7.2.686 Emanuel as JOLLY?BLEA [phone] [address] 2022-10-29 2022-10-29 Telephone [facility] 1.2.840.114 100 [id number] Univers 00:00:00 00:00:00 Tray HEALTH 350.1.13.10 it y of [place] 4.2.7.2.686 Emanuel as JOLLY?BLEA [id number] [address] 2022-10-29 2022-10-29 Telephone [facility] 1.2.840.114 100 [id number] Univers 00:00:00 00:00:00 Tray HEALTH 350.1.13.10 it y of [place] 4.2.7.2.686 Emanuel as JOLLY?BLEA [id number] [address] MEDICAL OFFICE BUILDING 2022-10-28 2022-10-28 Telephone [facility] 1.2.063.386 [id number] [id number] Univers 00:00:00 00:00:00 Elisha HEALTH 350.1.13.10 it y of [place] 4.2.7.2.686 Emanuel as JOLLY?BLEA [id number] [address] MEDICAL OFFICE BUILDING 2022-10-28 2022-10-28 Patient [facility] 1.2.840.114 [id number] Univers 00:00:00 00:00:00 [facility] 350.1.13.10 i ty of [place] 4.2.7.2.[address] [place] [address] [facility] [phone] [facility] PRIMARY & [facility] 2022-10-27 2022-10-27 Outpatient R VAN [facility] [id number] Univers 09:00:00 10:02:31 ELISHA flores [facility] 2022-10-27 2022-10-27 Office [facility] 1.2.840.114 [id number] Univers 09:00:00 10:02:31 Visit [facility] 350.1.13.10 it y of [place] 4.2.7.2.686 Emanuel as JOLLY?BLEA [id number] [address] OFFICE [facility] 2022-10-27 2022-10-27 Orders BON Araujo 1.2.840.114 [id number] Univers 00:00:00 00:00:00 Only Elisha HUGHES 350.1.13.10 it y of [facility] 4.2.7.2.686 Emanuel as [id number] [place] [address] [place] 2022-10-26 2022-10-26 Telephone [facility] 1.2.056.425 [id number] [id number] Univers 00:00:00 00:00:00 Elisha HEALTH 350.1.13.10 it y of [place] 4.2.7.2.686 Emanuel as JOLLY?BLEA [id number] [address] MEDICAL OFFICE BUILDING 2022-10-22 2022-10-25 Hospital ER Lisandro Dailey [facility] [id number] [facility] 05:22:00 14:24:00 Encounter Nenanorman Liviavick Campos [facility] 2022-10-22 2022-10-25 Inpatient ER MELANIE [facility] Internal [id number] [facility] 05:22:00 14:24:00 Med 2022-10-23 2022-10-23 Patient Doctor BON 1.2.840.114 [id number] Univers 00:00:00 00:00:00 Secure Msg Unassigned, GRAYSON 350.1.13.10 ity [facility] 4.2.7.2.686 Emanuel as [id number] [address] 2022-10-22 2022-10-22 Travel [facility] [id number] [facility] 00:00:00 00:00:00 [facility] 2022-10-21 2022-10-21 Outpatient Yadi ASHER [facility] [id number] Univers 15:45:00 15:45:00 CECILE itjay of [facility] 2022-10-21 2022-10-21 Telephone [facility] 1.2.840.114 100 [id number] Univers 00:00:00 00:00:00 [facility] 350.1.13.10 it y of [facility] 4.2.7.2.686 Emanuel as JOLLY?BLEA [phone] Nv samir[address] MEDICAL OFFICE BUILDING 2022-10-20 2022-10-20 Nurse BON Stark 1.2.840.114 [id number] Univers 00:00:00 00:00:00 Triage Kvng GALICIA 350.1.13.10 it y of [facility] 4.2.7.2.686 Emanuel as [id number] [address] 2022-10-18 2022-10-19 Emergency Kemal Myers 1.2. 840.114 [id number] Univers 15:07:00 17:48:00 Geovanny Willis 350.1.13.10 ity of [place], [facility] 4.2.7.2.686 [place] [id number] [facility] [address] 2022-10-19 2022-10-19 Refill [facility] 1.2.762.379 [id number] [id number] Univers 00:00:00 00:00:00 Vern PRIMARY 350.1.13.[address] [facility] 4.2.7.2.686 [place] [id number] Nv dical [address] [place] 2022-10-18 2022-10-18 Outpatient R [facility] [id number] [id number] Univers 11:45:00 13:42:03 MARIBEL packer [facility] 2022-10-18 2022-10-18 Manager Commodities 2, Adc Lab [facility] 1.2.840.114 [id number] Univers 11:45:00 13:42:03 Visit Maribel Tinsley 350.1.13. 10 ity of [facility] 4.2.7.2.686 [place] [phone] Nv dical NAL 353 [facility] 2022-10-18 2022-10-18 Outpatient [facility] [id number] Univers 11:00:00 11:14:47 MARIBEL packer [facility] 2022-10-18 2022-10-18 Office [facility] 1.2.840.114 [id number] [id number] Univers 11:00:00 11:14:47 Visit Maribel GREGORIO 350.1.13.10 ity of [place] 4.2.7.2.686 [place] [id number] Nv dical NAL 204 [facility] 2022-10-18 2022-10-18 Orders Doctor BON 1.2.840.114 [id number] Univers 00:00:00 00:00:00 Only Unassigned, GRAYSON 350.1.13.10 ity of [place] [facility] 4.2.7.2.686 Emanuel as [id number] [facility] [address] 2022-10-18 2022-10-18 Telephone Rik [facility] 1.2.840.114 100 [id number] Univers 00:00:00 00:00:00 [facility] 350.1.13.10 it y of [place] 4.2.7.2.686 Emanuel as JOLLY?BLEA [phone] Nv gabi CHAIREZ [address] [place] [address] OFFICE [facility] 2022-10-15 2022-10-15 Outpatient R KASSIDY [facility] [id number] Univers 10:45:00 11:31:42 LAYNE ity [facility] 2022-10-15 2022-10-15 Office Beckie Eugene [facility] 1. 2.840.114 [id number] Univers 10:45:00 11:31:42 Visit Layne Rothman SPECIALTY 350.1.13.10 ity of [facility] 4.2.7.2.686 [place] AT [id number] Nv gabi [address] [place] [address] 2022-10-12 2022-10-12 Reffranchesca JollyFOUR [facility] 1.2.840.114 [id number] Univers 00:00:00 00:00:00 [facility] 350.1.13.10 it y of [place] [facility]ANENCOM[facility] 4.2.7.2.686 Emanuel as JOLLY?BLEA [phone] Nv gabi CHAIREZ [address] [place] [address] OFFICE [facility] 2022-10-07 2022-10-07 Emergency X [facility] ERT [id number] Univers 11:11:00 13:18:00 [facility] 2022-10-07 2022-10-07 Emergency [facility]illF[facility] 1.2.993.792 [id number] [id number] Univers 11:11:00 13:18:00 Destiny GREGORIO 350.1.13.10 i ty of [facility] 4.2.7.2.686 [place] [id number] [facility] 084 [place] 2022-10-07 2022-10-07 Office [facility] 1.2.840.114 [id number] Univers 09:45:00 10:00:00 Visit [facility] 350.1.13.10 it y of [place] 4.2.7.2.686 Emanuel as JOLLY?BLEA [phone] Nv gabi CHAIREZ [address] [place] [address] OFFICE [facility] 2022-10-07 2022-10-07 Outpatient R [facility]OH[facility]HE[facility] [id number] Univers 09:45:00 08:37:42 ELISHA flores [facility] 2022-10-04 2022-10-04 [facility] 1.2.840.114 [id number] Univers 00:00:00 00:00:00 [facility] 350.1.13.10 it y of [place] 4.2.7.2.686 Emanuel as JOLLY?BLEA [id number] [address] 2022-09-28 2022-09-28 Outpatient R JESIACBRADFORDOHIOHEALTH [facility] [id number] Univers 08:00:00 08:00:00 TRAY flores [facility] 2022-09-10 2022-09-10 [facility] 1.2.840.114 [id number] Univers 00:00:00 00:00:00 [facility] 350.1.13.10 it y of [place] 4.2.7.2.686 Emanuel as JOLLY?BLEA [id number] [address] 2022-09-08 2022-09-08 [facility] 1.2.840.114 [id number] Univers 00:00:00 00:00:00 Tray HEALTH 350.1.13.10 it y of [place] 4.2.7.2.686 Emanuel as JOLLY?BLEA [id number] [address] 2022-09-08 2022-09-08 Nurse Delilah OLGUIN 1.2.840.114 99 [id number] [facility] 00:00:00 00:00:00 Triage d, Melony GALICIA 350.1.13.10 ity of HOSPITAL 4.2.7.2.686 Emanuel as [id number] [address] 2022-09-06 2022-09-06 Susan [facility] 1.2.840.114 [id number] Univers 00:00:00 00:00:00 Wondiful A HEALTH 350.1.13.10 ity of [place] 4.2.7.2.686 Emanuel as JOLLY?BLEA [id number] Nv gabi CHAIREZ [address] [facility] OFFICE [facility] 2022-09-06 2022-09-06 Susan Asher [facility] 1.2.037.492 [id number] Univers 00:00:00 00:00:00 Cecile JG 350.1.13.10 i ty of [place] 4.2.7.2.686 [place] [facility] [phone] Nv gabi [address] 2022-09-03 2022-09-03 Outpatient R MISTY [facility] [id number] Univers 11:30:00 11:48:06 KAMILLA flores [facility] 2022-09-03 2022-09-03 Office Mist[facility] 1.2.840.114 [id number] Univers 11:30:00 11:48:06 Visit Kamilla [facility] 350.1.13.10 it y of [place] 4.2.7.2.686 Emanuel as JOLLY?BLEA [id number] [address] OFFICE [facility] 2022-08-30 2022-08-30 Patient Doctor [facility] 1.2.840.114 [id number] Univers 00:00:00 00:00:00 Secure Msg Unassigned, HEALTH 350.1.13.10 ity of [place] 4.2.7.2.686 [place] [id number] [address] 2022-08-24 2022-08-24 Outpatient R RIK [facility] [id number] Univers 09:00:00 09:00:00 TRAY flores [facility] 2022-08-24 2022-08-24 Office Rik [facility] 1.2.840.114 [id number] Univers 09:00:00 09:00:00 Visit Tray [facility] 350.1.13.10 it y of [place] 4.2.7.2.686 Emanuel as JOLLY?BLEA [id number] Nv gabi [address] OFFICE [facility] 2022-08-24 2022-08-24 Outpatient R RIK [facility] [id number] Univers 09:00:00 08:53:13 TRAY flores [facility] 2022-08-24 2022-08-24 [facility] 1.2.840.114 [id number] Univers 00:00:00 00:00:00 Wondiful A HEALTH 350.1.13.10 ity of [place] 4.2.7.2.686 Emanuel as JOLLY?BLEA [id number] [address] OFFICE [facility] 2022-08-22 2022-08-22 [facility] 1.2.840.114 [id number] Univers 00:00:00 00:00:00 Wondiful A HEALTH 350.1.13.10 ity of [place] 4.2.7.2.686 Emanuel as JOLLY?BLEA [id number] [address] OFFICE [facility] 2022-08-13 2022-08-13 Outpatient R WIL [facility] [id number] Univers 14:00:00 14:00:00 AN flores [facility] 2022-08-06 2022-08-06 Telephone [facility] 1.2.840.114 [id number] [id number] Univers 00:00:00 00:00:00 Tray HEALTH 350.1.13.10 it y of [place] 4.2.7.2.686 Emanuel as JOLLY?BLEA [id number] [address] 2022-08-05 2022-08-05 Orders Doctor BON 1.2.840.114 [id number] Univers 00:00:00 00:00:00 Only Unassigned, GRAYSON 350.1.13.10 ity of [place] [facility] 4.2.7.2.686 Emanuel as [id number] [facility] [address] [place] 2022-07-30 2022-07-30 Patient Doctor BON 1.2.840.114 [id number] Univers 00:00:00 00:00:00 Secure Msg Unassigned, GRAYSON 350.1.13.10 ity of [place] [facility] 4.2.7.2.686 Emanuel as [id number] [facility] [address] [place] 2022-07-29 2022-07-29 Refill [facility] 1.2.840.114 [id number] Univers 00:00:00 00:00:00 [facility] 350.1.13.10 it y of [place] 4.2.7.2.686 Emanuel as JOLLY?BLEA [id number] [address] OFFICE [facility] 2022-07-27 2022-07-27 Outpatient R RIK [facility] [id number] Univers 08:00:00 08:25:43 TRAY ity of [facility] 2022-07-27 2022-07-27 Office [facility] 1.2.840.114 [id number] Univers 08:00:00 08:25:43 Visit [facility] 350.1.13.10 it y of [place] 4.2.7.2.686 Emanuel as JOLLY?BLEA [id number] [address] OFFICE [facility] 2022-07-19 2022-07-19 Orders Doctor BON 1.2.840.114 [id number] Univers 00:00:00 00:00:00 Only Unassigned, GRAYSON 350.1.13.10 ity of [place] [facility] 4.2.7.2.686 Emanuel as [id number] [address] 2022-07-08 2022-07-08 Refill [facility] 1.2.840.114 [id number] Univers 00:00:00 00:00:00 Tray [facility] 350.1.13.10 i ty of [place] 4.2.7.2.686 [place] [id number] [address] 2022-07-07 2022-07-07 Outpatient R STELLA WORLEY [facility] 285 [id number] Univers 00:00:00 00:00:00 STELLA WORLEY it y of [facility] 2022-07-01 2022-07-01 Orders Doctor BON 1.2.840.114 [id number] Univers 00:00:00 00:00:00 Only Unassigned, GRAYSON 350.1.13.10 ity of [place] [facility] 4.2.7.2.686 Emanuel as [id number] [address] 2022-06-30 2022-06-30 Outpatient R STELLA WORLEY [facility] 510 [id number] Univers 09:34:33 23:59:00 STELLA WORLEY y of [facility] 2022-06-30 2022-06-30 [facility] Stella Worley 1.2.840.114 [id number] Univers 09:34:33 23:59:00 Encounter [place] 350.1.13.10 ity of [place] 4.2.7.2.686 [facility] [id number] [facility] 804 [place] 2022-06-30 2022-06-30 [facility] Stella Worley [facility] 1.2.840.114 [id number] Univers 09:34:16 23:59:00 Encounter [place] 350.1.13.10 ity of [facility] 4.2.7.2.686 [facility] [id number] [place] 899914 [place] 2022-06-30 2022-06-30 Orders Doctor BON 1.2.840.114 [id number] Univers 00:00:00 00:00:00 Only Unassigned, GRAYSON 350.1.13.10 ity of [place] [facility] 4.2.7.2.686 Emanuel as [id number] [facility] 009 [place] 2022-06-30 2022-06-30 Telephone BrunildaStella [facility] 1.2.840.114 [id number] Univers 00:00:00 00:00:00 HEALTH 350.1.13.10 it y of [place] 4.2.7.2.686 [place] 230.3355250 [place] 839022 [place] OFFICE BUILDING 2022-06-29 2022-06-29 Patient Doctor BON 1.2.840.114 [id number] Univers 00:00:00 00:00:00 Secure Msg Unassigned, GRAYSON 350.1.13.10 ity of [place] [facility] 4.2.7.2.686 Emanuel as [phone] [facility] [address] 2022-06-24 2022-06-24 Outpatient R BRUNILDASTELLA [facility] 052 [id number] Univers 00:00:00 00:00:00 BRUNILDASTELLA y of [facility] 2022-06-24 2022-06-24 Telephone BrunildaStella [facility] 1.2.840.114 [id number] Univers 00:00:00 00:00:00 HEALTH 350.1.13.10 it y of [place] 4.2.7.2.686 [place] [id number] [address] OFFICE BUILDING 2022-06-21 2022-06-21 Outpatient R RIK [facility] [id number] Univers 11:00:00 11:00:00 TRAY ity of [facility] 2022-06-21 2022-06-21 Telephone [facility] 1.2.840.114 [id number] Univers 00:00:00 00:00:00 Tray HEALTH 350.1.13.10 it y of [place] 4.2.7.2.686 Emanuel as JOLLY?BLEA [id number] [facility] [address] OFFICE BUILDING 2022-06-17 2022-06-17 Office Stella Worley [facility] 1.2.840.114 [id number] Univers 11:00:00 11:30:00 Visit HEALTH 350.1.13.10 it y of [place] 4.2.7.2.686 [place] [id number] [address] OFFICE BUILDING 2022-06-17 2022-06-17 Outpatient R STELLA WORLEY [facility] [id number] Univers 11:00:00 11:00:00 STELLA WORLEY it y of [facility] 2022-06-17 2022-06-17 Refill Stella Worley [facility] 1.2.840.114 96 [id number] Univers 00:00:00 00:00:00 HEALTH 350.1.13.10 it y of [place] 4.2.7.2.686 [place] [id number] [address] OFFICE BUILDING 2022-06-17 2022-06-17 Orders Doctor BON 1.2.840.114 [id number] Univers 00:00:00 00:00:00 Only Unassigned, GRAYSON 350.1.13.10 ity of [place] [facility] 4.2.7.2.686 Emanuel as [id number] [address] 2022-06-16 2022-06-16 Telephone [facility] 1.2.840.114 [id number] Univers 00:00:00 00:00:00 [facility] 350.1.13.10 it y of [place] 4.2.7.2.686 Emanuel as JOLLY?BLEA [id number] [address] OFFICE [facility] 2022-06-15 2022-06-15 Outpatient R [facility] [id number] 9419 [facility] 08:00:00 08:25:29 TRAY ity of [facility] 2022-06-15 2022-06-15 Office [facility] 1.2.840.114 [id number] Univers 08:00:00 08:25:29 Visit [facility] 350.1.13.10 it y of [place] 4.2.7.2.686 Emanuel as JOLLY?BLEA [id number] [address] OFFICE [facility] 2022-06-14 2022-06-14 Telephone [facility] 1.2.840.114 96 [id number] Univers 00:00:00 00:00:00 Cecile [facility] 350.1.13.10 i ty of [place] 4.2.7.2.686 [place] [id number] [address] 2022-06-11 2022-06-11 Telephone [facility] 1.2.840.114 [id number] Univers 00:00:00 00:00:00 [facility] 350.1.13.10 it y of [place] 4.2.7.2.686 Emanuel as JOLLY?BLEA [id number] [address] OFFICE [facility] 2022-06-09 2022-06-09 Telephone [facility] 1.2.840.114 [id number] Univers 00:00:00 00:00:00 Tray HEALTH 350.1.13.10 it y of [place] 4.2.7.2.686 Emanuel as JOLLY?BLEA [id number] [address] OFFICE [facility] 2022-06-04 2022-06-04 Stella Barrow [facility] 1.2.840.114 96 [id number] Univers 00:00:00 00:00:00 HEALTH 350.1.13.10 it y of [place] 4.2.7.2.686 [place] [id number] [address] OFFICE [facility] 2022-06-04 2022-06-04 Telephone NurseRy [facility] 1.2.840.114 [id number] Univers 00:00:00 00:00:00 Db HEALTH 350.1.13.10 it y of [place] 4.2.7.2.686 Emanuel as JOLLY?BLEA [id number] Nv gabi JACOBSEY [address] [facility] OFFICE [facility] 2022-06-04 2022-06-04 Refill [facility] 1.2.054.988 [id number] Univers 00:00:00 00:00:00 Cecile GREGORIO 350.1.13.10 i ty of [place] 4.2.7.2.686 [place] [id number] [facility] 188 [facility] 2022-06-03 2022-06-03 Outpatient R STELLA WORLEY [facility] [id number] Univers 09:30:00 09:30:00 STELLA WORLEY it y of [facility] 2022-06-02 2022-06-02 Stella Barrow [facility] 1.2.840.114 [id number] Univers 00:00:00 00:00:00 HEALTH 350.1.13.10 it y of [place] 4.2.7.2.686 [place] [id number] [address] OFFICE [facility] 2022-06-02 2022-06-02 Stella Barrow [facility] 1.2.840.114 96 [id number] Univers 00:00:00 00:00:00 HEALTH 350.1.13.10 it y of [place] 4.2.7.2.686 [place] [id number] [address] OFFICE [facility] 2022-06-02 2022-06-02 Telephone [facility] 1.2.840.114 96 [id number] Univers 00:00:00 00:00:00 Cecile GREGORIO 350.1.13.10 i ty of [place] 4.2.7.2.686 [place] [id number] Nv dical NAL 188 [facility] 2022-06-01 2022-06-01 Orders Doctor BON 1.2.840.114 [id number] Univers 00:00:00 00:00:00 Only Unassigned, GRAYSON 350.1.13.10 ity of [place] [facility] 4.2.7.2.686 Emanuel as [id number] [address] 2022-06-01 2022-06-01 Stella Barrow [facility] 1.2.840.114 96 [id number] Univers 00:00:00 00:00:00 HEALTH 350.1.13.10 it y of [place] 4.2.7.2.686 [place] [id number] [address] OFFICE [facility] 2022-06-01 2022-06-01 Susan Asher [facility] 1.2.702.127 [id number] Univers 00:00:00 00:00:00 Cecile GREGORIO 350.1.13.10 i ty [place] [id number] Nv dical NAL 188 [facility] 2022-05-28 2022-05-28 Susan Jolly [facility] 1.2.840.114 [id number] Univers 00:00:00 00:00:00 [facility] HEALTH 350.1.13.10 it y of [place] GREGORIO 4.2.7.2.686 Emanuel as JOLLY?BLEA [phone] Nv dicroshan CHAIREZ [address] [facility] OFFICE [facility] 2022-05-26 2022-05-26 Stella Barrow [facility] 1.2.840.114 [id number] Univers 00:00:00 00:00:00 HEALTH 350.1.13.10 [place] [id number] [address] OFFICE [facility] 2022-05-18 2022-05-18 Outpatient DAPHNEY DIAZ [facility] [id number] Univers 09:00:00 09:00:00 ity of [facility] 2022-05-17 2022-05-17 Outpatient Yadi JOLLY [facility] [id number] Univers 09:00:00 09:00:00 TRAY flores [facility] 2022-05-13 2022-05-13 Orders Doctor BON 1.2.840.114 [id number] Univers 00:00:00 00:00:00 Only Unassigned, GRAYSON 350.1.13.10 ity of [facility] [place] 4.2.7.2.686 Emanuel as [id number] [address] 2022-05-13 2022-05-13 Telephone Kikafatuma [facility] 1.2.840.114 [id number] Univers 00:00:00 00:00:00 [facility] 350.1.13.10 it y of Edbrittnee [place] 4.2.7.2.686 Emanuel as JOLLY?BLEA [id number] Nv samirroshan JACOBS[address] OFFICE BUILDING 2022-05-10 2022-05-10 Outpatient R RIK [facility] [id number] Univers 16:15:00 16:15:00 TRAY flores [facility] 2022-05-10 2022-05-10 Outpatient STELLA DAVILA [facility] [id number] Univers 00:00:00 00:00:00 STELLA WORLEY [facility] 2022-05-06 2022-05-06 Telephone Stella Worley [facility] 1.2.840.114 [id number] Univers 00:00:00 00:00:00 HEALTH 350.1.13.10 [place]7.2.[place] [phone] [address] OFFICE BUILDING 2022-05-06 2022-05-06 Orders Doctor BON 1.2.840.114 [id number] Univers 00:00:00 00:00:00 Only Unassigned, GRAYSON 350.1.13.10 ity of [place] [facility] 4.2.7.2.686 Emanuel as [id number] [address] 2022-04-29 2022-04-29 Outpatient Yadi AGUILAR [facility] [id number] Univers 14:00:00 14:00:00 BON flores [facility] 2022-04-28 2022-04-28 Patient Doctor [facility] 1.2.840.114 [id number] Univers 00:00:00 00:00:00 Secure Msg Unassigned, HEALTH 350.1.13.10 [place]y [place] - [phone] [facility] [address] 2022-04-14 2022-04-14 Outpatient R ROXANNEJERRYA [facility] [id number] Univers 09:00:00 09:00:00 ity of [facility] [facility] 2022-04-12 2022-04-12 Reffranchesca [facility] 1.2.840.114 [id number] Univers 00:00:00 00:00:00 Ricardo GREGORIO 350.1.13.10 ity [facility] 4.2.7.2.686 [place] [facility] [phone] Nv dical NAL [address] [facility] 2022-04-09 2022-04-09 Outpatient R MOMO [facility] [id number] Univers 11:00:00 11:00:00 ISAC ity [facility] 2022-04-08 2022-04-08 [facility] 1.2.840.114 [id number] Univers 08:30:00 23:59:00 Encounter [facility] HEALTH 350.1.13.10 ity of [place].2.7.2.686 [place] [id number] [facility] [address] OFFICE BUILDING 2022-04-08 2022-04-08 Outpatient R AGUSTINA [facility] [id number] Univers 08:30:00 23:59:00 KAMAKSHI ity o f [facility] 2022-04-08 2022-04-08 Telephone Stella Worley [facility] 1.2.840.114 [id number] Univers 00:00:00 00:00:00 HEALTH 350.1.13.10 it y of [place] 4.2.7.2.686 [place] [id number] [facility] [address] OFFICE BUILDING 2022-04-02 2022-04-02 Outpatient R WIL [facility] [id number] Univers 09:30:00 09:30:00 AN ity [facility] 2022-03-31 2022-03-31 Telephone [facility] 1.2.840.114 [id number] Univers 00:00:00 00:00:00 Tray HEALTH 350.1.13.10 it y of [place] [facility] 4.2.7.2.686 Emanuel as JOLLY?BLEA [phone] [address] MEDICAL OFFICE [facility] 2022-03-27 2022-03-27 Emergency [facility] 1.2.065.687 [id number] Univers 07:48:00 08:22:00 Destiny GREGORIO 350.1.13.10 i ty of [place] 4.2.7.2.686 [place] [facility] [id number] [address] 2022-03-27 2022-03-27 Emergency X [facility] ERT [id number] Univers 07:48:00 08:22:00 DESTINY ity [facility] 2022-03-27 2022-03-27 Orders Doctor OLGUIN 1.2.840.114 [id number] Univers 00:00:00 00:00:00 Only Unassigned, GRAYSON 350.1.13.10 ity of [facility] 4.2.7.2.686 Emanuel as [id number] [address] 2022-03-24 2022-03-24 Telephone [facility] 1.2.840.114 [id number] Univers 00:00:00 00:00:00 Tray HEALTH 350.1.13.10 it y of [place] [facility] 4.2.7.2.686 Emanuel as JOLLY?BLEA [id number] [address] MEDICAL OFFICE [facility] 2022-03-19 2022-03-19 Orders Doctor OLGUIN 1.2.840.114 [id number] Univers 00:00:00 00:00:00 Only Unassigned, GRAYSON 350.1.13.10 ity of [facility] 4.2.7.2.686 Emanuel as [id number] [address] 2022-03-19 2022-03-19 Telephone [facility] 1.2.840.114 [id number] Univers 00:00:00 00:00:00 Tray HEALTH 350.1.13.10 it y of [place] 4.2.7.2.686 Emanuel as JOLLY?BLEA [phone] Nv gabi CHAIREZ [address] [place] [address] MEDICAL OFFICE BUILDING 2022-03-17 2022-03-17 Telephone [facility] 1.2.840.114 [id number] Univers 00:00:00 00:00:00 [facility] 350.1.13.10 it y of [place] 4.2.7.2.686 Emanuel as JOLLY?BLEA [phone] Nv gabi JACOBS[address] MEDICAL OFFICE BUILDING 2022-03-15 2022-03-15 Patient Doctor [facility] 1.2.840.114 [id number] Univers 00:00:00 00:00:00 Secure Msg Unassigned, HEALTH 350.1.13.10 ity of [place] 4.2.7.2.686 Emanuel as JOLLY?BLEA [phone] Nv agbi CHAIREZ [address] MEDICAL OFFICE BUILDING 2022-03-12 2022-03-12 RefStella Hamilton [facility] 1.2.840.114 [id number] Univers 00:00:00 00:00:00 HEALTH 350.1.13.10 it y of [place] 4.2.7.2.686 [place] mitzy LYNN [id number] [facility] [address] OFFICE BUILDING 2022-03-08 2022-03-08 Telephone [facility] 1.2.840.114 [id number] Univers 00:00:00 00:00:00 [facility] 350.1.13.10 it y of [place] 4.2.7.2.686 Emanuel as JOLLY?BLEA [phone] Nv gabi [address] MEDICAL OFFICE BUILDING 2022-03-02 2022-03-02 Outpatient R [facility] MARCUS [id number] Univers 07:39:00 11:22:00 CECILE ity of [facility] 2022-03-02 2022-03-02 [facility] 1.2.840.114 [id number] Univers 07:39:00 11:22:00 Encounter Cecile GREGORIO 350.1.13.10 ity of [place] 4.2.7.2.686 [place] SURGICAL [phone] [facility] [address] 2022-03-02 2022-03-02 Surgery [facility] 1.2.850.607 [id number] [id number] Univers 09:11:00 10:25:00 Cecile JG 350.1.13.10 i ty of [place] 4.2.7.2.686 [place] SURGICAL [id number] [facility] [address] 2022-03-02 2022-03-02 Orders Doctor BON 1.2.840.114 [id number] Univers 00:00:00 00:00:00 Only Unassigned, GRAYSON 350.1.13.10 ity of [place] [facility] 4.2.7.2.686 Emanuel as [id number] [facility] [address] 2022-03-01 2022-03-01 Telephone [facility] 1.2.840.114 [id number] Univers 00:00:00 00:00:00 Cecile GREGORIO 350.1.13.10 i ty of [place] 4.2.7.2.686 [place] [phone] Nv dical NAL [address] BUILDING 2022-03-01 2022-03-01 Susan [facility] 1.2.840.114 [id number] Univers 00:00:00 00:00:00 Ricardo GREGORIO 350.1.13.10 ity of [place] 4.2.7.2.686 [place] [id number] Nv dical NAL [address] BUILDING 2022-02-25 2022-02-25 Outpatient Yadi JOLLY [facility] [id number] Univers 11:00:00 11:00:00 TRAY ity of [facility] 2022-02-25 2022-02-25 Patient Stella Worley [facility] 1.2.840.114 [id number] Univers 00:00:00 00:00:00 Secure [facility] HEALTH 350.1.13.10 ity of [place] 4.2.7.2.686 [place] [id number] [facility] [address] OFFICE BUILDING 2022-02-25 2022-02-25 Telephone Stella Worley [facility] 1.2.840.114 [id number] Univers 00:00:00 00:00:00 HEALTH 350.1.13.10 it y of [place] 4.2.7.2.686 [place] mitzy LYNN [id number] [place] [address] OFFICE BUILDING 2022-02-24 2022-02-24 Telephone [facility] 1.2.840.114 [id number] Univers 00:00:00 00:00:00 Tray HEALTH 350.1.13.10 it y of [place] 4.2.7.2.686 Emanuel as JOLLY?BLEA [id number] [address] OFFICE BUILDING 2022-02-23 2022-02-23 [facility] 1.2.840.114 [id number] Univers 00:00:00 00:00:00 Tray HEALTH 350.1.13.10 it y of [place] 4.2.7.2.686 Emanuel as JOLLY?BLEA [id number] [address] OFFICE BUILDING 2022-02-22 2022-02-22 Reffranchesca PaulaFOUR [facility]NERS [facility] 1.2.840.114 [id number] Univers 00:00:00 00:00:00 Wondiful A HEALTH 350.1.13.10 ity of [place] 4.2.7.2.686 Emanuel as JOLLY?BLEA [id number] [address] OFFICE BUILDING 2022-02-18 2022-02-18 Patient [facility] 1.2.840.114 [id number] Univers 00:00:00 00:00:00 Secure Msg Tray HEALTH 350.1.13.10 ity of [place] 4.2.7.2.686 Emanuel as JOLLY?BLEA [id number] [address] OFFICE BUILDING 2022-02-18 2022-02-18 Telephone [facility] 1.2.840.114 [id number] Univers 00:00:00 00:00:00 Tray [place] 350.1.13.10 i ty of [place] 4.2.7.2.686 [place] KAHLILIO [id number] [facility] [address] 2022-02-16 2022-02-16 Outpatient R RIK [facility] [id number] Univers 09:15:00 09:30:10 TRAY flores [facility] 2022-02-16 2022-02-16 Office [facility] 1.2.840.114 [id number] Univers 09:15:00 09:30:10 Visit [facility] 350.1.13.10 it y of [place] 4.2.7.2.686 Emanuel as JOLLY?BLEA [id number] [address] 2022-02-16 2022-02-16 Outpatient R RIK [facility] [id number] Univers 09:15:00 09:15:00 TRAY jay [facility] 2022-02-16 2022-02-16 Telephone Vik Oliveira [facility] 1..840.114 [id number] Univers 00:00:00 00:00:00 HEALTH 350.1.13.10 it y of [place] 4.2.7.2.686 [place] [phone] [address] OFFICE [facility] 2022-02-15 2022-02-15 Outpatient R FLORENCE [facility] [id number] Univers 15:15:00 15:15:00 CAPRICE flores [facility] 2022-02-14 2022-02-14 Nurse BON Zarate 1.2.228.398 [id number] Univers 00:00:00 00:00:00 Triage Young GALICIA 350.1.13.10 it y of HOSPITAL 4.2.7.2.686 Emanuel as [id number] [address] 2022-02-12 2022-02-12 Telephone Rik [facility] 1.2.840.114 [id number] Univers 00:00:00 00:00:00 [facility] 350.1.13.10 it y of [place] 4.2.7.2.686 Emanuel as JOLLY?BLEA [phone] [address] OFFICE BUILDING 2022-02-11 2022-02-11 Telephone Stella Worley [facility] 1.2.840.114 [id number] Univers 00:00:00 00:00:00 HEALTH 350.1.13.10 it y of [place] 4.2.7.2.686 [place] [id number] [address] OFFICE BUILDING 2022-02-11 2022-02-11 Telephone RoxanneVik Tirso [facility] 1.2.840.114 [id number] Univers 00:00:00 00:00:00 HEALTH 350.1.13.10 it y of [place] 4.2.7.2.686 [place] [id number] [address] OFFICE BUILDING 2022-02-10 2022-02-10 Outpatient R NAV ANTONIO [facility] [id number] Univers 00:00:00 00:00:00 ity of [facility] 2022-02-10 2022-02-10 Outpatient NAV GIANG [facility] [id number] Univers 00:00:00 00:00:00 ity of [facility] 2022-02-10 2022-02-10 Orders Doctor BON 1.2.840.114 [id number] Univers 00:00:00 00:00:00 Only Unassigned, GRAYSON 350.1.13.10 ity of [place] [facility] 4.2.7.2.686 Emanuel as [phone] [address] 2022-02-08 2022-02-08 Outpatient R STELLA WORLEY [facility] [id number] Univers 10:00:00 11:34:48 STELLA WORLEY it y of [facility] 2022-02-08 2022-02-08 Office Stella Worley [facility] 1.2.840.114 [id number] Univers 10:00:00 11:34:48 Visit HEALTH 350.1.13.10 it y of [place] 4.2.7.2.686 [place] [phone] [address] OFFICE BUILDING 2022-02-01 2022-02-01 Telephone Momo TNFRANDY 1.2.154.730 [id number] Univers 00:00:00 00:00:00 Isac S HEALTH 350.1.13.10 it y of [place] 4.2.7.2.686 Emanuel as JOLLY?BLEA [id number] Me dical COTNRERAS [address] MEDICAL OFFICE [facility] 2022-01-28 2022-01-28 Orders Doctor BON 1.2.840.114 [id number] Univers 00:00:00 00:00:00 Only Unassigned, GRAYSON 350.1.13.10 ity of [place] [facility] 4.2.7.2.686 Emanuel as [id number] [address] 2022-01-27 2022-01-27 Patient Doctor [facility] 1.2.840.114 [id number] Univers 00:00:00 00:00:00 Secure Msg Unassigned, HEALTH 350.1.13.10 ity of [place] 4.2.7.2.686 Emanuel as JOLLY?BLEA [phone] Nv dicroshan CHAIREZ [address] [facility] OFFICE [facility] 2022-01-27 2022-01-27 Patient [facility] 1.2.840.114 [id number] Univers 00:00:00 00:00:00 Secure Msg [facility] HEALTH 350.1.13.10 ity of [place] 4.2.7.2.686 Emanuel as JOLLY?BLEA [phone] Nv gabi CHAIREZ [address] [facility] OFFICE [facility] 2022-01-27 2022-01-27 Telephone [facility] 1.2.840.114 [id number] Univers 00:00:00 00:00:00 [facility] 350.1.13.10 it y of [place] 4.2.7.2.686 Emanuel as JOLLY?BLEA [phone] Nv dicroshan CHAIREZ [address] [facility] OFFICE [facility] 2022-01-27 2022-01-27 Telephone [facility] 1.2.840.114 [id number] Univers 00:00:00 00:00:00 Tray HEALTH 350.1.13.10 it y of [place] 4.2.7.2.686 Emanuel as JOLLY?BLEA [id number] Nv dicroshan CHAIREZ [address] [facility] OFFICE [facility] 2022-01-27 2022-01-27 Telephone Vik Oliveira [facility] 1.2.840.114 [id number] Univers 00:00:00 00:00:00 HEALTH 350.1.13.10 it y of [place] 4.2.7.2.686 [place] mitzy LASCASSAS [id number] [facility] [address] OFFICE BUILDING 2022-01-25 2022-01-25 [facility] [id number] Univers 10:20:49 23:59:00 AN itjay [facility] 2022-01-25 2022-01-25 [facility] 1.2.840.114 [id number] Univers 10:00:00 23:59:00 Encounter An GREGORIO 350.1.13.10 ity of [place] 4.2.7.2.686 [place] [id number] [facility] [address] 2022-01-25 2022-01-25 [facility] [id number] Univers 00:00:00 00:00:00 AN flores [facility] 2022-01-25 2022-01-25 Orders Doctor BON 1.2.840.114 [id number] Univers 00:00:00 00:00:00 Only Unassigned, GRAYSON 350.1.13.10 ity of [place] [facility] 4.2.7.2.686 Emanuel as [phone] [address] 2022-01-22 2022-01-22 [place] [facility] 1.2.840.114 [id number] Univers 00:00:00 00:00:00 [facility] 350.1.13.10 it y of [place] 4.2.7.2.686 Emanuel as JOLLY?BLEA [phone] [address] OFFICE BUILDING 2022-01-22 2022-01-22 Orders Doctor BON 1.2.840.114 [id number] Univers 00:00:00 00:00:00 Only Unassigned, GRAYSON 350.1.13.10 ity of [place] [facility] 4.2.7.2.686 Emanuel as [phone] [address] 2022-01-21 2022-01-21 [facility] 1.2.840.114 [id number] Univers 00:00:00 00:00:00 Wondiful A HEALTH 350.1.13.10 ity of [place] 4.2.7.2.686 Emanuel as JOLLY?BLEA [id number] [facility] [address] 2022-01-20 2022-01-20 [facility] 1.2.840.114 [id number] Univers 00:00:00 00:00:00 Wondiful A HEALTH 350.1.13.10 ity of [place] 4.2.7.2.686 Emanuel as JOLLY?BLEA [phone] [facility] [address] 2022-01-19 2022-01-19 Telephone [facility] 1.2.840.114 [id number] Univers 00:00:00 00:00:00 Tray HEALTH 350.1.13.10 it y of [place] 4.2.7.2.686 Emanuel as JOLLY?BLEA [id number] [facility] [address] 2022-01-18 2022-01-18 [facility] 1.2.840.114 [id number] Univers 00:00:00 00:00:00 Tray HEALTH 350.1.13.10 it y of [place] 4.2.7.2.686 Emanuel as JOLLY?BLEA [id number] [facility] [address] 2022-01-13 2022-01-13 [facility]phone [facility] 1.2.840.114 [id number] Univers 00:00:00 00:00:00 Miroslava [place] 350.1.13.10 i ty of [place] 4.2.7.2.686 [place] [id number] Nv gabi [address] 2022-01-11 2022-01-11 Outpatient Yadi BARR [facility] [id number] Univers 14:45:00 23:59:00 ISAC ity of [facility] 2022-01-11 2022-01-11 Outpatient Yadi BARR [facility] [id number] Univers 14:45:00 23:59:00 ISAC ity [facility] 2022-01-11 2022-01-11 Office [facility] 1.2.840.114 [id number] Univers 13:45:00 14:00:00 Visit Isac Reddy HEALTH 350.1.13.10 it y of [place] 4.2.7.2.686 Emanuel as JOLLY?BLEA [id number] Nv gabi CHAIREZ [address] [facility] OFFICE [facility] 2022-01-11 2022-01-11 Outpatient R MOMO [facility] [id number] Univers 13:45:00 13:45:00 ISAC [facility] 2022-01-07 2022-01-07 Telephone [facility] 1.2.840.114 [id number] Univers 00:00:00 00:00:00 Tray HEALTH 350.1.13.10 it y of [place] 4.2.7.2.686 Emanuel as JOLLY?BLEA [phone] Nv gabi CHAIREZ [address] [facility] OFFICE [facility] 2022-01-06 2022-01-06 Telephone [facility] 1.2.840.114 [id number] [facility] 00:00:00 00:00:00 Wondiful A HEALTH 350.1.13.10 ity of [place] 4.2.7.2.686 Emanuel as JOLLY?BLEA [phone] Nv gabi CHAIREZ [address] [facility] OFFICE [facility] 2022-01-05 2022-01-05 Telephone [facility] 1.2.840.114 [id number] Univers 00:00:00 00:00:00 Tray HEALTH 350.1.13.10 it y of [place] 4.2.7.2.686 Emanuel as JOLLY?BLEA [phone] Nv dicroshan CHAIREZ [address] MEDICAL OFFICE [facility] 2022-01-04 2022-01-04 Telephone [facility] 1.2.840.114 [id number] Univers 00:00:00 00:00:00 Tray HEALTH 350.1.13.10 it y of [place] 4.2.7.2.686 Emanuel as JOLLY?BLEA [phone] Nv gabi CHAIREZ [address] MEDICAL OFFICE [facility] 2022-01-01 2022-01-01 Patient Doctor [facility] 1.2.840.114 [id number] Univers 00:00:00 00:00:00 Secure Msg Unassigned, HEALTH 350.1.13.10 ity of [place] 4.2.7.2.686 Emanuel as JOLLY?BLEA [phone] Nv gabi CHAIREZ [address] [facility] OFFICE [facility] 2021-12-31 2021-12-31 Telephone [facility] 1.2.840.114 [id number] Univers 00:00:00 00:00:00 [facility] 350.1.13.10 it y of [place] 4.2.7.2.686 Emanuel as JOLLY?BLEA [phone] Nv gabi CHAIREZ [address] [facility] OFFICE [facility] 2021-12-31 2021-12-31 Telephone [facility] 1.2.840.114 [id number] Univers 00:00:00 00:00:00 [facility] 350.1.13.10 it y of [place] 4.2.7.2.686 Emanuel as JOLLY?BLEA [phone] Nv gabi CHAIREZ [address] [place] [address] OFFICE [facility] 2021-12-30 2021-12-30 Patient Jessie [facility] 1.2.840.114 [id number] Univers 00:00:00 00:00:00 Outreach Genesis Shah [facility] 350.1.13.10 ity of [place] 4.2.7.2.686 Emanuel as PROFESSIO [phone] Nv gabi BARNEY [address] [place] [address] OFFICE [facility] ONE 2021-12-28 2021-12-28 Outpatient R LAKESHIA [facility] [id number] Univers 09:30:00 10:07:08 CECILE flores [facility] 2021-12-28 2021-12-28 Outpatient R LAKESHIA [facility] [id number] Univers 09:30:00 10:07:08 CECILE flores [facility] 2021-12-28 2021-12-28 Office [facility] 1.2.783.395 [id number] Univers 09:30:00 10:07:08 Visit Cecile GREGORIO 350.1.13.10 i ty of [place] 4.2.7.2.[place] [phone] Nv gabi [address] 2021-12-24 2021-12-24 Outpatient R [facility] [id number] Univers 14:00:00 14:00:00 ity of [facility] 2021-12-24 2021-12-24 Patient [facility] 1.2.840.114 [id number] Univers 00:00:00 00:00:00 Secure Msg [facility] 350.1.13.10 ity of [place] 4.2.7.2.686 Emanuel as JOLLY?BLEA [phone] [facility] ARLENE[address] OFFICE [facility] 2021-12-22 2021-12-22 Patient [facility] 1.2.021.368 [id number] Univers 00:00:00 00:00:00 Secure Msg Cecile GREGORIO 350.1.13.10 [facility]y [facility] 4.2.7.2.[place] [phone] Nv gabi [address] 2021-12-22 2021-12-22 Telephone [facility] 1.2.840.114 [id number] Univers 00:00:00 00:00:00 Cecile GREGORIO 350.1.13.10 i ty [facility] 4.2.7.2.686 [place] [phone] Nv samir[address] 2021-12-16 2021-12-16 Telephone [facility] 1.2.840.114 [id number] Univers 00:00:00 00:00:00 [facility] 350.1.13.10 it y of [place] 4.2.7.2.686 Emanuel as JOLLY?BLEA [id number] [facility] CONTRERAS [address] [place] [address] OFFICE [facility] 2021-12-11 2021-12-11 Surgery [facility] 1.2.223.016 [id number] 9758 Univers 10:33:00 11:46:00 Cecile GREGORIO 350.1.13.10 i ty [facility] 4.2.7.2.686 [place] SURGICAL [phone] [facility] [address] 2021-12-11 2021-12-11 Surgery [facility] 1.2.871.047 [id number] 9758 Univers 10:33:00 11:46:00 Cecile GREGORIO 350.1.13.10 i ty of [place] 4.2.7.2.686 [place]ICAL [id number] [facility] [address] 2021-12-11 2021-12-11 Surgery [facility] 1.2.848.939 [id number] Univers 10:33:00 11:46:00 Cecile BYERSCHRISTELLE 350.1.13.10 i ty of [place] 4.2.7.2.686 [place]ICAL [id number] [facility] [address] [place] 2021-12-11 2021-12-11 Outpatient R [facility] MARCUS [id number] Univers 08:40:00 11:25:00 [facility] 2021-12-11 2021-12-11 [facility] 1.2.840.114 [id number] Univers 08:40:00 11:25:00 Encounter Cecilemichelle GREGORIO 350.1.13.10 ity of [place] 4.2.7.2.[place]ICAL [phone] [facility] [address] [place] 2021-12-11 2021-12-11 Outpatient R [facility] MARCUS [id number] [id number] Univers 08:40:00 11:25:00 CECILE [facility] 2021-12-11 2021-12-11 Outpatient R [facility] M[facility] [id number] Univers 08:40:00 11:25:00 CECILE [facility] 2021-12-11 2021-12-11 Orders Doctor OLGUIN 1.2.840.114 [id number] Univers 00:00:00 00:00:00 Only Unassigned, GRAYSON 350.1.13.10 ity of [place] [facility] 4.2.7.2.686 Emanuel as [phone] [address] 2021-12-09 2021-12-09 Telephone [facility] 1.2.840.114 [id number] Univers 00:00:00 00:00:00 Wondiful A HEALTH 350.1.13.10 ity of [place] 4.2.7.2.686 Emanuel as JOLLY?BLEA [phone] Nv gabi CHAIREZ 198 [facility] OFFICE [facility] 2021-12-08 2021-12-08 Outpatient R [facility] [id number] Univers 13:00:00 13:00:00 ity of [facility] 2021-12-08 2021-12-08 Telephone [facility] 1.2.840.114 [id number] Univers 00:00:00 00:00:00 Tray HEALTH 350.1.13.10 it y of [place] 4.2.7.2.686 Emanuel as JOLLY?BLEA [phone] Nv gabi CHAIREZ 044 [facility] [place][note 2] 2021-12-08 2021-12-08 Telephone [facility] 1..840.114 [id number] Univers 00:00:00 00:00:00 Tray HEALTH 350.1.13.10 it y [facility] 4.2.7.2.686 Emanuel as JOLLY?BLEA [phone] Nv gabi CHAIREZ 044 [facility] [place][note 2] 2021-12-03 2021-12-03 Outpatient R [facility] [id number] [facility] 13:30:00 13:30:00 [facility]-12-03 2021-12-03 [facility]phone [facility] 1.2.840.114 [id number] Univers 00:00:00 00:00:00 Cecile GREGORIO 350.1.13.10 i ty [place]7.2.[place] [phone] Nv gabi BARNEY 188 [facility] 2021-12-03 2021-12-03 Telephone [facility] 1.2.840.114 [id number] Univers 00:00:00 00:00:00 Wondiful A HEALTH 350.1.13.10 ity of [place] 4.2.7.2.686 Emanuel as PROFESSIO [phone] Nv gabi [place] [facility] 2021-12-01 2021-12-01 Outpatient R NISA [facility] [id number] Univers 14:15:00 14:54:12 WONDIFUL ity o f [facility] 2021-12-01 2021-12-01 [facility] 1.2.840.114 [id number] Univers 14:15:00 14:54:12 Visit Wondiful A HEALTH 350.1.13.10 ity of [place] 4.2.7.2.686 Emanuel as JOLLY?BLEA [phone] Nv dicroshan [facility] OFFICE [facility] 2021-12-01 2021-12-01 [facility] [id number] Univers 14:15:00 14:54:12 WONDIFUL ity o f [facility] 2021-12-01 2021-12-01 Patient Scot [facility] 1.2.840.114 [id number] Univers 00:00:00 00:00:00 Outreach Vik L HEALTH 350.1.13.10 i ty of [place] 4.2.7.2.686 Emanuel as JOLLY?BLEA [phone] Nv gabi CHAIREZ [address] [place] [address] OFFICE [facility] 2021-12-01 2021-12-01 Patient Scot [facility] 1.2.840.114 [id number] Univers 00:00:00 00:00:00 Outreach Vik L HEALTH 350.1.13.10 i ty of [place] 4.2.7.2.686 Emaunel as JOLLY?BLEA [phone] Nv dical CONTRERAS [facility] OFFICE BUILDING 2021-11-20 2021-11-20 Patient [facility] 1.2.840.114 [id number] Univers 00:00:00 00:00:00 Secure Msg Wondiful A HEALTH 350.1.13.10 ity of [place] 4.2.7.2.686 Emanuel as JOLLY?BLEA [phone] Nv dical CONTRERAS [facility] [facility] OFFICE BUILDING 2021-11-18 2021-11-18 [facility] [id number] Univers 10:00:00 10:44:34 WONDIFUL ity o f [facility] 2021-11-18 2021-11-18 Outpatient R NISA [facility] [id number] Univers 10:00:00 10:44:34 WONDIFUL ity o f [facility] 2021-11-18 2021-11-18 Outpatient R NISA [facility] [id number] Univers 10:00:00 10:00:00 WONDIFUL ity o f [facility] 2021-11-18 2021-11-18 Outpatient R NISA [facility] [id number] Univers 10:00:00 10:00:00 WONDIFUL ity o f [facility] 2021-11-18 2021-11-18 Outpatient R NISA [facility] [id number] Univers 10:00:00 10:00:00 WONDIFUL ity o f [facility] 2021-11-18 2021-11-18 Patient [facility] 1.2.840.114 [id number] Univers 00:00:00 00:00:00 Secure [facility] 350.1.13.10 [facility] 4.2.7.2.686 Emanuel as JOLLY?BLEA [phone] [address] MEDICAL OFFICE BUILDING 2021-11-16 2021-11-16 Outpatient R LAKESHIA [facility] [id number] Univers 09:30:00 09:30:00 [facility] 2021-11-16 2021-11-16 Outpatient R LAKESHIA [facility] [id number] Univers 09:30:00 09:30:00 CECILE [facility] 2021-11-16 2021-11-16 Outpatient R LAKESHIA [facility] [id number] Univers 09:30:00 09:30:00 [facility] 2021-11-15 2021-11-15 Emergency X NINO [facility] ERT [id number] Univers 09:06:00 12:49:00 DESTINY [facility] 2021-11-15 2021-11-15 Emergency [facility] 1.2.094.183 [id number] Univers 09:06:00 12:49:00 Destiny [place] 350.1.13.10 i ty of [place].7.2.[place] [id number] [facility] [address] [place] 2021-11-15 2021-11-15 Emergency X ONEILL, [facility] ERT [id number] Univers 09:06:00 12:49:00 DESTINY ity of [facility] 2021-11-10 2021-11-10 Telephone [facility] 1.2.840.114 [id number] Univers 00:00:00 00:00:00 Wondiful A HEALTH 350.1.13.10 ity [facility] 4.2.7.2.686 Emanuel as JOLLY?BLEA [phone] [address] OFFICE [facility] 2021-11-05 2021-11-05 Orders Doctor BON 1.2.840.114 [id number] Univers 00:00:00 00:00:00 Only Unassigned, GRAYSON 350.1.13.10 ity of [place] [facility] 4.2.7.2.686 Emanuel as [phone] [facility] [address] [place] 2021-11-05 2021-11-05 Telephone [facility] 1.2.840.114 [id number] Univers 00:00:00 00:00:00 Wondiful A HEALTH 350.1.13.10 ity of [facility] 4.2.7.2.686 Emanuel as JOLLY?BLEA [phone] [address] OFFICE [facility] 2021-11-03 2021-11-03 Telephone [facility] 1.2.840.114 [id number] Univers 00:00:00 00:00:00 Wondiful A HEALTH 350.1.13.10 ity of [place] 4.2.7.2.686 Emanuel as JOLLY?BLEA [phone] [address] OFFICE [facility] 2021-11-03 2021-11-03 Telephone [facility] 1.2.840.114 [id number] Univers 00:00:00 00:00:00 Wondiful A HEALTH 350.1.13.10 ity of [facility] 4.2.7.2.686 Emanuel as JOLLY?BLEA [phone] Nv dical KNEY [address] [place] MEDICAL OFFICE BUILDING 2021-10-27 2021-10-27 Patient Daphney Sánchez 1.2.840.114 [id number] Univers 00:00:00 00:00:00 Secure Msg H 350.1.13.10 ity of BUILDING 4.2.7.2.686 Emanuel as [phone] [address] 2021-10-27 2021-10-27 Case Daphney Sánchez 1.2.840.114 [id number] Univers 00:00:00 00:00:00 Management H 350.1.13.10 ity of [place] 4.2.7.2.686 Emanuel as [phone] [address] 2021-10-26 2021-10-26 Telephone Daphney Sánchez 1.2.840.114 [id number] Univers 00:00:00 00:00:00 H 350.1.13.10 it y of [place] 4.2.7.2.686 Emanuel as [phone] [address] 2021-10-23 2021-10-23 Telephone [facility] 1.2.210.721 [id number] Univers 00:00:00 00:00:00 Corry Adams JG 350.1.13.10 ity of [place].2.[place] [id number] Nv gabi [facility] 188 [facility] 2021-10-22 2021-10-22 Outpatient Yadi BARR [facility] [id number] Univers 14:45:00 14:45:00 ISAC ity [facility] 2021-10-22 2021-10-22 Outpatient Yadi BARR [facility] [id number] Univers 14:45:00 14:45:00 ISAC ity [facility] 2021-10-22 2021-10-22 Outpatient Yadi BARR [facility] [id number] Univers 14:45:00 14:45:00 ISAC ity [facility] 2021-10-22 2021-10-22 Outpatient Yadi BARR [facility] [id number] Univers 14:45:00 14:45:00 ISAC itjay [facility] 2021-10-19 2021-10-19 Telephone Nisa [facility] 1.2.840.114 [id number] Univers 00:00:00 00:00:00 Wondiful A HEALTH 350.1.13.10 ity of [facility] 4.2.7.2.686 Emanuel as JOLLY?BLEA [phone] Nv dicroshan CHAIREZ [address] [facility] OFFICE [facility] 2021-10-13 2021-10-13 Outpatient R JAYMIE [facility] [id number] Univers 10:30:00 10:41:12 CORRY flores [facility] 2021-10-13 2021-10-13 Office [facility] 1.2.840.114 [id number] Univers 10:30:00 10:41:12 Visit Corry [facility] 350.1.13.10 ity of [place].7.2.[place] [phone] Nv dicroshan BARNEY 204 [facility] 2021-10-13 2021-10-13 Outpatient R JAYMIE [facility] [id number] Univers 10:30:00 10:41:12 CORRY flores [facility] 2021-10-06 2021-10-06 Patient Doctor [facility] 1.2.840.114 [id number] Univers 00:00:00 00:00:00 Secure Msg Unassigned, HEALTH 350.1.13.10 ity of [place] 4.2.7.2.686 Emanuel as JOLLY?BLEA [phone] Nv samirroshan CHAIREZ [address] [facility] OFFICE [facility] 2021-09-29 2021-09-29 Outpatient R FLORENCE [facility] [id number] Univers 16:14:01 23:59:00 CAPRICE flores [facility] 2021-09-29 2021-09-29 Outpatient R FLORENCE [facility] [id number] Univers 16:14:01 23:59:00 CAPRICE flores [facility] 2021-09-29 2021-09-29 Hospital Florence [facility] 1.2.840.114 [id number] Univers 16:14:01 23:59:00 Encounter Caprice THAPA 350.1.13.10 ity of [facility] 4.2.7.2.686 Emanuel as JOLLY?BLEA [phone] Nv samirroshan CONTRERAS [address] [facility] OFFICE [facility] 2021-09-29 2021-09-29 Outpatient Yadi HENRIQUEZ [facility] [id number] Univers 16:14:01 23:59:00 CAPRICE flores [facility] 2021-09-29 2021-09-29 Office [facility] 1.2.840.114 [id number] Univers 16:00:00 16:58:02 Visit Isac Reddy [facility] 350.1.13.10 it y of [place] 4.2.7.2.686 Emanuel as JOLLY?BLEA [phone] Nv samirroshan ARLENEKISHORE [address] [facility] OFFICE [facility] 2021-09-29 2021-09-29 Outpatient Yadi BARR [facility] [id number] Univers 16:00:00 16:58:02 [facility] 2021-09-29 2021-09-29 Outpatient Yadi BARR [facility] [id number] Univers 16:00:00 16:58:02 [facility] 2021-09-29 2021-09-29 Outpatient Yadi BARR [facility] [id number] Univers 16:00:00 16:00:00 [facility] 2021-09-24 2021-09-24 Outpatient Yadi BARR [facility] [id number] Univers 14:00:00 14:00:00 [facility] 2021-09-19 2021-09-19 Nurse Caprice Ozuna ..840.114 [id number] Univers 00:00:00 00:00:00 Triage GRAYSON 350.1.13.10 it y of [facility] 4.2.7.2.686 Emanuel as [phone] [address] 2021-09-09 2021-09-09 Prep For [facility] 1.2.840.114 [id number] Univers 00:00:00 00:00:00 Surgery Corry GREGORIO 350.1.13.10 ity of [place].2.[place] [phone] Nv dical NAL 204 [facility] 2021-09-08 2021-09-08 Office [facility] 1.2.863.096 [id number] Univers 14:30:00 16:16:36 Visit Cecile GREGORIO 350.1.13.10 i ty justin [place] [phone] Nv dical NAL 188 [facility] 2021-09-08 2021-09-08 Out[facility] [id number] Univers 14:30:00 16:16:36 CECILE flores [facility] 2021-09-08 2021-09-08 Outpatient R LAKESHIA [facility] [id number] Univers 14:30:00 16:16:36 CECILE flores [facility] 2021-09-08 2021-09-08 Outpatient [facility] [id number] Univers 14:30:00 14:30:00 CECILE flores [facility] 2021-09-08 2021-09-08 Orders Doctor OLGUIN 1.2.840.114 [id number] Univers 00:00:00 00:00:00 Only Unassigned, GRAYSON 350.1.13.10 ity of [place] [facility] 4.2.7.2.686 Emanuel as [phone] [address] 2021-09-02 2021-09-02 Outpatient R [facility] [id number] Univers 14:00:00 14:00:00 CAPRICE flores [facility] 2021-08-31 2021-08-31 Orders Doctor OLGUIN 1.2.840.114 [id number] Univers 00:00:00 00:00:00 Only UnassignedGRAYSON 350.1.13.10 ity of [place] [facility] 4.2.7.2.686 Emanuel as [phone] [address] 2021-08-26 2021-08-26 Outpatient [facility] [id number] Univers 10:45:00 11:58:51 WONDIFUL ity o f [facility] 2021-08-26 2021-08-26 Outpatient R NISA [facility] [id number] Univers 10:45:00 11:58:51 WONDIFUL ity o f [facility] 2021-08-26 2021-08-26 Outpatient R NISA [facility] [id number] Univers 10:45:00 11:58:51 WONDIFUL ity o f [facility] 2021-08-26 2021-08-26 Outpatient Yadi PAULA [facility] [id number] Univers 10:45:00 11:58:51 WONDIFUL ity o f [facility] 2021-08-26 2021-08-26 Office [facility] 1.2.840.114 [id number] Univers 10:34:47 11:58:51 Visit Wondiful A HEALTH 350.1.13.10 ity of [place] 4.2.7.2.686 Emanuel as JOLLY?BLEA [phone] [address] MEDICAL OFFICE [facility] 2021-08-17 2021-08-17 [facility] 1.2.840.114 [id number] Univers 00:00:00 00:00:00 Management Wondiful A HEALTH 350.1.13.10 ity of [place] 4.2.7.2.686 Emanuel as JOLLY?BLEA [id number] [address] MEDICAL OFFICE [facility] 2021-08-13 2021-08-13 Outpatient Yadi PAULA [facility] [id number] Univers 07:58:20 23:59:00 WONDIFUL ity o f [facility] 2021-08-13 2021-08-13 [facility] 1.2.982.695 [id number] Univers 07:58:20 23:59:00 Encounter Wondiful A [place] 350.1.13.10 ity [facility] 4.2.7.2.[place] [id number] [address] 2021-08-13 2021-08-13 Outpatient R NISA [facility] [id number] Univers 07:58:20 23:59:00 WONDIFUL ity o f [facility] 2021-08-13 2021-08-13 Manager Commodities Zachariah, [facility] Lab Main [facility] 1.2.8 40.114 [id number] Univers 07:57:57 08:12:57 Visit Bunny Paulamery Bryan [facility] 350.1.13. 10 ity [facility] 4.2.7.2.[place] [id number] Nv samirroshan [facility] [address] BUILDING 2021-08-13 2021-08-13 Outpatient R NISA [facility] [id number] Univers 00:00:00 00:00:00 WONDIFUL ity o f [facility] 2021-08-13 2021-08-13 Patient Daykin [facility] 1.2.840.114 [id number] Univers 00:00:00 00:00:00 Secure Msg Wondiful A [facility] 350.1.13.10 ity of [place] 4.2.7.2.686 Emanuel as JOLLY?BLEA [phone] [address] MEDICAL OFFICE BUILDING 2021-08-04 2021-08-04 Outpatient R NISA [facility] [id number] Univers 15:30:00 15:42:52 WONDIFUL ity o f [facility] 2021-08-04 2021-08-04 Outpatient R NISA [facility] [id number] Univers 15:30:00 15:42:52 WONDIFUL ity o f [facility] 2021-08-04 2021-08-04 Outpatient R NISA [facility] [id number] Univers 15:30:00 15:42:52 WONDIFUL ity o f [facility] 2021-08-04 2021-08-04 Outpatient R NISA [facility] [id number] Univers 15:30:00 15:42:52 WONDIFUL ity o f [facility] 2021-08-04 2021-08-04 Outpatient R NISA [facility] [id number] Univers 15:30:00 15:42:52 WONDIFUL ity o f [facility] 2021-08-04 2021-08-04 Office [facility] 1.2.840.114 [id number] Univers 14:30:05 15:42:52 Visit Wondiful A HEALTH 350.1.13.10 ity of [facility] 4.2.7.2.686 Emanuel as JOLLY?BLEA [phone] Nv gabi [address] MEDICAL OFFICE BUILDING 2021-08-04 2021-08-04 Outpatient Yadi PAULA [facility] [id number] Univers 15:30:00 15:30:00 WONDIFUL ity o [facility] 2021-08-03 2021-08-03 Pre Visit BON Edmondson 1.2.840.114 [id number] Univers 00:00:00 00:00:00 Outreach Jorge Bernadette MUJICAY 350.1.13.10 i ty of [facility] 4.2.7.2.686 Emanuel as [phone] [address] 2021-07-15 2021-07-15 Outpatient [facility] [id number] Univers 14:20:00 14:20:00 SHORTY ity o [facility] 2021-07-15 2021-07-15 Outpatient [facility] [id number] Univers 14:20:00 14:20:00 SHORTY ity o [facility] 2021-07-15 2021-07-15 Outpatient R [facility] [id number] Univers 14:20:00 14:20:00 SHORTY ity o [facility] 2021-07-15 2021-07-15 Outpatient R [facility] [id number] Univers 14:20:00 14:20:00 [facility] ity [facility] 2021-07-15 2021-07-15 Patient Doctor BON 1.2.840.114 [id number] Univers 00:00:00 00:00:00 Secure Msg Unassigned, GRAYSON 350.1.13.10 ity of [place] [facility] 4.2.7.2.686 Emanuel as [phone] [address] 2021-07-14 2021-07-14 Reffranchesca [facility] 1.2.840.114 [id number] Univers 00:00:00 00:00:00 Wondiful A Health 350.1.13.10 ity of [place] 4.2.7.2.686 Emanuel as Professio [phone] Nv dical nal [address] [place] Office Building One 2021-07-10 2021-07-10 Outpatient Kautz_S DMG DMG [id number] Devoted 05:13:00 05:13:00 1015 Medica l Group 2021-07-02 2021-07-02 RefIVETT Romero 1.2.840.114 [id number] Univers 00:00:00 00:00:00 Wondiful A Health 350.1.13.10 ity of [place] 4.2.7.2.686 Emanuel as Professio [phone] Nv dical nal [address] [place] Office [facility] One 2021-06-15 2021-06-15 Orders Doctor BON 1.2.840.114 [id number] Univers 00:00:00 00:00:00 Only Unassigned, GRAYSON 350.1.13.10 ity of [place] [facility] 4.2.7.2.686 Emanuel as [phone] [facility] [address] 2021-06-08 2021-06-08 Patient Grupo Garcia 1.2.840.114 [id number] Univers 00:00:00 00:00:00 Outreach Emily Siny 350.1.13.10 ity of [place]2.[place].2.[place] [phone] [facility] [address] [place] 2021-06-08 2021-06-08 RefVik Hall [facility] 1.2.840.114 [id number] Univers 00:00:00 00:00:00 Health 350.1.13.10 it y of [place]2.7.2.686 [place] [phone] [address] Office Building 2021-05-25 2021-05-25 Emergency X [facility] ERT [id number] Univers 18:22:00 20:23:00 LAUREEN ity [facility] 2021-05-25 2021-05-25 Emergency X [facility] ERT [id number] Univers 18:22:00 20:23:00 [facility] ity [facility] 2021-05-25 2021-05-25 Emergency X DREVER, [facility] ERT [id number] Univers 18:22:00 20:23:00 LAUREEN ity of [facility] 2021-05-25 2021-05-25 Emergency X DREVER, [facility] ERT [id number] Univers 18:22:00 20:23:00 LAUREEN ity of [facility] 2021-05-25 2021-05-25 Emergency X DREVER, [facility] ERT [id number] Univers 18:22:00 20:23:00 LAUREEN ity of [facility] 2021-05-25 2021-05-25 Emergency Drever, [facility] 1.2.419.065 [id number] Univers 18:22:00 20:23:00 Laureen G [place] 350.1.13.10 ity [facility] 4.2.7.2.686 [facility] [phone] [address] 2021-05-21 2021-05-21 Outpatient LAILA GOODWIN [facility] [id number] Univers 09:30:00 09:30:00 LAILA ORELLANA [facility] 2021-05-19 2021-05-19 Reffranchesca [facility] 1.2.840.114 [id number] Univers 00:00:00 00:00:00 Wondiful A [facility] 350.1.13.10 ity [facility] 4.2.7.2.686 [facility] [phone] Nv dical [address] Office Building One 2021-05-14 2021-05-14 Outpatient DAPHNEY DIAZ [facility] [id number] Univers 09:00:00 09:00:00 ity of [facility] 2021-05-09 2021-05-09 Outpatient DMG ROBYN [id number] Devoted 11:00:00 11:00:00 0814 Medica l Group 2021-05-08 2021-05-08 Outpatient Yadi HENRIQUEZ [facility] [id number] Univers 07:37:21 23:59:00 [facility] 2021-05-08 2021-05-08 Outpatient Yadi HENRIQUEZ [facility] [id number] Univers 07:37:21 23:59:00 CAPRICE flores [facility] 2021-05-08 2021-05-08 Outpatient R FLORENCE [facility] [id number] Univers 07:37:21 23:59:00 CAPRICE flores [facility] 2021-05-08 2021-05-08 Outpatient R FLORENCE [facility] [id number] Univers 07:37:21 23:59:00 CAPRICE flores [facility] 2021-05-08 2021-05-08 Outpatient Yadi BARR [facility] [id number] Univers 08:15:00 08:15:00 ISAC flores [facility] 2021-05-07 2021-05-07 Outpatient DMG DMG [id number] Devoted 12:00:00 12:00:00 0812 Medica l Group 2021-04-27 2021-04-27 Susan [facility] 1.2.840.114 [id number] Univers 00:00:00 00:00:00 [facility] 350.1.13.10 it y of [place] 4.2.7.2.686 Emanuel as PROFESSIO [phone] Nv dical [place] [address] OFFICE BUILDING ONE 2021-04-21 2021-04-21 Outpatient Yadi PAULA [facility] [id number] Univers 15:45:00 15:45:00 WONDIFUL ity o f [facility] 2021-04-07 2021-04-07 Outpatient Yadi TELLO [facility] [id number] Univers 09:20:00 09:20:00 VINEET phillipsjay [facility] 2021-04-02 2021-04-02 Outpatient Yadi BARR [facility] [id number] Univers 08:45:00 08:45:00 ISAC phillipsjay [facility] 2021-04-01 2021-04-01 Emergency X NINO [facility] ERT [id number] Univers 13:00:00 15:36:00 DESTINY flores [facility] 2021-04-01 2021-04-01 Emergency X NINO [facility] ERT [id number] Univers 13:00:00 15:36:00 DESTINY flores [facility] 2021-04-01 2021-04-01 Emergency X ONEILL, [facility] ERT [id number] Univers 13:00:00 15:36:00 DESTINY flores [facility] 2021-04-01 2021-04-01 Outpatient R [facility] [id number] Univers 08:45:00 08:45:00 ity of [facility] 2021-03-28 2021-03-28 Outpatient R BELLA, [facility] [id number] Univers 09:40:00 09:40:00 CHELA flores o f [facility] 2021-03-27 2021-03-27 Outpatient R WIL, [facility] [id number] Univers 09:30:00 09:30:00 ANBELLA flores [facility] 2021-03-27 2021-03-27 Patient [facility] 1.2.840.114 [id number] Univers 00:00:00 00:00:00 Secure Msg Wondiful A HEALTH 350.1.13.10 ity of [place] 4.2.7.2.686 Emanuel as PROFESSIO [phone] Nv dical NAL [address] [place] [address] OFFICE [facility] ONE 2021-03-27 2021-03-27 Patient Nisa [facility] 1.2.840.114 [id number] Univers 00:00:00 00:00:00 Secure Msg Wondiful A HEALTH 350.1.13.10 ity of [place] 4.2.7.2.686 Emanuel as PROFESSIO [phone] Nv dicsc NAL [address] [place] [address] OFFICE [facility] ONE 2021-03-26 2021-03-26 Outpatient R MOMO [facility] [id number] Univers 15:15:00 15:15:00 ISAC jay [facility] 2021-03-25 2021-03-25 Outpatient R JAYMIE [facility] [id number] Univers 08:30:00 08:30:00 CORRY [facility] 2021-03-25 2021-03-25 Patient Doctor [facility] 1.2.840.114 [id number] Univers 00:00:00 00:00:00 Secure Msg Unassigned, HEALTH [id number] [facility] [place] SURGICAL [id number] Emanuel as SPECIALTI [id number] Me dical ES 198 [facility] 2021-03-23 2021-03-23 Outpatient R STEFFANIE [facility] [id number] Univers 08:00:00 08:00:00 EMERY ity o f [facility] 2021-03-20 2021-03-20 Emergency X STEPHEN, K [facility] ERT [id number] Univers 19:09:00 19:47:00 ity of [facility] 2021-03-20 2021-03-20 Emergency X STEPHEN, K [facility] ERT [id number] Univers 19:09:00 19:47:00 ity of [facility] 2021-03-20 2021-03-20 Emergency X STEPHEN, K [facility] ERT [id number] Univers 19:09:00 19:47:00 ity [facility] 2021-03-18 2021-03-18 Outpatient Yadi HENRIQUEZ [facility] NUT [id number] Univers 00:00:00 00:00:00 [facility] 2021-03-16 Patient Doctor [facility] [id number] Univers 00:00:00 00:00:00 Secure Ms Unassigned, HEALTH [id number] [facility] [place] SURGICAL [id number] Emanuel as SPECIALTI [id number] Me dical ES 198 [facility] 2021-03-12 2021-03-12 Outpatient Yadi BARR [facility] [id number] Univers 08:30:00 08:30:00 ISAC [facility] 2021-03-11 2021-03-11 Outpatient Yadi BARR [facility] [id number] Univers 16:15:00 [facility]:15[facility] 2021-03-10 Susan Castro [facility] [id number] Univers 00:00:00 00:00:00 Daria HEALTH [id number] it y of [facility] [id number] [place] [phone] [place] [id number] Branch OFFICE BUILDING 2021-03-05 2021-03-05 Patient Doctor [facility] [id number] Univers 00:00:00 00:00:00 Secure Msg Unassigned, [facility] [id number] ity of [place] SURGICAL [id number] Emanuel as SPECIALTI [phone] Me dical ES [address] [place] 2021-02-25 2021-02-25 Outpatient Yadi BARR [facility] [id number] Univers 14:30:00 14:30:00 [facility] 2021-02-25 [facility] [id number] 00:00:00 00:00:00 Sendlarissa Roche [place] [id number] [place] [id number] Professio [phone] [facility] 059 Building 2021-02-24 2021-02-24 Outpatient R NISA [facility] [id number] Univers 11:00:00 11:00:00 WONDIFUL ity o f [facility] 2021-02-19 2021-02-19 Outpatient R FLORENCE [facility] [id number] Univers 10:03:49 23:59:00 CAPRICE [facility] 2021-02-19 2021-02-19 Outpatient R FLORENCE [facility] [id number] Univers 00:00:00 00:00:00 CAPRICE [facility] 2021-02-17 2021-02-17 Outpatient R [facility] [id number] Univers 17:40:00 17:40:00 ity [facility] 2021-02-17 2021-02-17 Outpatient R JONA [facility] [id number] Univers 17:40:00 17:17:33 [facility]-02-17 2021-02-17 Outpatient R JONA [facility] [id number] Univers 17:40:00 17:17:33 [facility] 2021-02-17 2021-02-17 Outpatient Yadi TENORIO [facility] [id number] Univers 17:40:00 17:17:33 ROGE [facility] 2021-02-13 2021-02-13 Patient Doctor [facility] [id number] Univers 00:00:00 00:00:00 Secure Msg Unassigned, HEALTH [id number] ity [place] SURGICAL [id number] Emanuel as SPECIALTI [id number] Nv dical ES 198 [facility] 2021-02-10 2021-02-10 Outpatient R ATUL [facility] [id number] Univers 09:00:00 09:00:00 SENDIL [facility] 2021-02-09 2021-02-09 Outpatient R MOMO [facility] [id number] Univers 14:45:00 14:45:00 [facility] 2021-02-09 2021-02-09 Outpatient R MOMO [facility] [id number] Univers 14:45:00 14:45:00 [facility] 2021-02-04 2021-02-04 Outpatient R MARCELINA VALERA [facility] [id number] Univers 10:30:00 10:30:00 [facility] 2021-02-03 2021-02-03 Outpatient R NISA [facility] [id number] Univers 16:30:00 16:30:00 WONDIFUL ity o f [facility] 2021-02-02 2021-02-02 Patient Momo [facility] [id number] Univers 00:00:00 00:00:00 Secure Msg Isac S HEALTH [id number] ity of SURGICAL [id number] Emanuel as SPECIALTI [phone] Nv dical ES 198 [facility] 2021-01-27 2021-01-27 Outpatient R NAV ANTONIO [facility] [id number] Univers 15:00:00 15:00:00 [facility] 2021-01-22 2021-01-22 Patient Doctor [facility] [id number] Univers 00:00:00 00:00:00 Secure Msg Unassigned, JG [id number] it[place] NINI [id number] Laura BROWN [phone] Nv dical NAL 0[address] Branch [facility] 2021-01-21 2021-01-21 Outpatient R ATUL, [facility] [id number] Univers 11:00:00 11:00:00 [facility]-01-20 2021-01-20 Outpatient R DAPHNEY SÁNCHEZ [facility] [id number] Univers 11:00:00 11:00:00 ity [facility] 2021-01-14 2021-01-14 Outpatient R RIK, [facility] [id number] Univers 10:45:00 10:45:00 TRAY [facility] 2021-01-08 2021-01-08 Outpatient R MOMO, [facility] [id number] Univers 08:45:00 08:45:00 ISAC [facility] 2021-01-06 2021-01-06 Outpatient R AIMEE, [facility] [id number] Univers 11:00:00 11:00:00 SHORTY ity o [facility] 2021-01-01 2021-01-01 Outpatient R NISA, [facility] [id number] Univers 15:00:00 15:00:00 WONDIFUL ity o f [facility] 2021-01-01 2021-01-01 Outpatient R NISA [facility] [id number] Univers 15:00:00 15:00:00 WONDIFUL ity o f [facility] 2021-01-01 2021-01-01 Outpatient R NISA, [facility] [id number] Univers 15:00:00 15:00:00 WONDIFUL ity o f [facility] 2021-01-01 2021-01-01 Outpatient R NISA, [facility] [id number] Univers 15:00:00 15:00:00 WONDIFUL ity o f [facility] 2020-12-13 2020-12-13 Outpatient [facility] [id number] Univers 08:25:00 08:25:00 ity [facility] 2020-12-13 2020-12-13 Outpatient R BELGICA, [facility] [id number] Univers 08:25:00 08:25:00 TAMMY ity [facility] 2020-12-13 2020-12-13 Outpatient R BELGICA, [facility] [id number] Univers 08:25:00 08:25:00 TAMMY ity [facility] 2020-12-13 2020-12-13 Outpatient R BELGICA, [facility] [id number] Univers 08:25:00 08:25:00 TAMMY ity [facility] 2020-12-02 2020-12-02 Outpatient R JAKE, [facility] [id number] Univers 09:00:00 09:00:00 LIANA ity [facility] 2020-12-02 2020-12-02 Outpatient R JAKE, [facility] [id number] Univers 09:00:00 09:00:00 LIANA ity [facility] 2020-12-02 2020-12-02 Outpatient R JAKE, [facility] [id number] Univers 09:00:00 09:00:00 LIANA ity [facility] 2020-12-02 2020-12-02 Outpatient R JAKE, [facility] [id number] Univers 09:00:00 09:00:00 LIANA ity [facility] 2020-11-22 2020-11-22 Outpatient R BELGICA, [facility] [id number] Univers 09:40:00 09:40:00 TAMMY ity [facility] 2020-11-22 2020-11-22 Outpatient R BELGICA, [facility] [id number] Univers 09:40:00 09:40:00 TAMMY ity [facility] 2020-11-22 2020-11-22 Outpatient R BELGICA, [facility] [id number] Univers 09:40:00 09:40:00 TAMMY ity [facility] 2020-11-21 2020-11-21 Outpatient R DONOVAN, [facility] [id number] Univers 14:00:00 14:00:00 RAUDELYAR [facility] 2020-11-20 2020-11-20 Outpatient R LAILA ORELLANA [facility] [id number] Univers 15:00:00 15:00:00 LAILA ORELLANA i [facility] 2020-11-19 2020-11-19 Patient Nisa [facility] [id number] Univers 00:00:00 00:00:00 Secure Msg Wondiful A HEALTH [id number] it[place] [id number] Emanuel as PROFESSIO [phone] Nv dicsc NAL 044 [facility] ONE 2020-11-10 2020-11-10 Patient Nisa [facility] [id number] Univers 00:00:00 00:00:00 Secure Msg Wondiful A HEALTH [id number] it[place] [id number] Emanuel as PROFESSIO [phone] [address] 2020-11-09 2020-11-09 Outpatient R ELISHA [facility] [id number] Univers 08:20:00 08:20:00 [facility] 2020-11-09 2020-11-09 Outpatient R ELISHA [facility] [id number] Univers 08:20:00 08:20:00 [facility] 2020-11-09 2020-11-09 Outpatient R ELISHA [facility] [id number] Univers 08:20:00 08:20:00 [facility] 2020-11-07 2020-11-07 Outpatient R VIK OLIVEIRA [facility] [id number] Univers 11:30:00 11:30:00 ity [facility] 2020-11-06 2020-11-06 Outpatient R NISA [facility] [id number] Univers 08:15:00 08:15:00 WONDIFUL ity o f [facility] 2020-11-05 2020-11-05 Patient Vik Oliveira [facility] 1.2.840.114 [id number] Univers 00:00:00 00:00:00 Secure Msg HEALTH [id number] ity of [place] [id number] [place] [id number] [facility] [address] OFFICE BUILDING 2020-10-27 2020-10-27 Patient Nisa [facility] [id number] Univers 00:00:00 00:00:00 Secure Msg Wondiful A HEALTH [id number] ity of [place] [id number] Emanuel as PROFESSIO [id number] [address] ONE 2020-10-21 2020-10-21 Patient Nisa [facility] [id number] Univers 00:00:00 00:00:00 Secure Msg Wondiful A HEALTH [id number] ity of [place] [id number] Emanuel as PROFESSIO [id number] [address] ONE 2020-10-16 2020-10-16 [facility] [id number] Univers 18:00:00 18:00:00 VINEET [facility] 2020-10-07 2020-10-07 [facility] [id number] Univers 00:00:00 00:00:00 Secure Msg Wondiful A HEALTH [id number] ity of [place] [id number] Emanuel as PROFESSIO [phone] [address] ONE 2020-10-06 2020-10-06 [facility] [id number] Univers 00:00:00 00:00:00 Secure Msg Wondiful A HEALTH [id number] ity of [place] [id number] Emanuel as PROFESSIO [id number] [address] ONE 2020-10-02 2020-10-02 Outpatient R MOMO [facility] [id number] Univers 10:15:00 10:15:00 ISAC [facility] 2020-09-22 2020-09-22 Outpatient R STEFFANIE [facility] [id number] Univers 08:00:00 08:00:00 EMERY ity o f [facility] 2020-09-15 2020-09-15 Outpatient R NISA [facility] [id number] Univers 00:00:00 00:00:00 WONDIFUL ity o f [facility] 2020-09-15 2020-09-15 Outpatient R NISA [facility] [id number] Univers 00:00:00 00:00:00 WONDIFUL ity o f [facility] 2020-09-14 2020-09-14 Outpatient R JONA, [facility] [id number] Univers 08:40:00 08:40:00 ROGE [facility] 2020 2020 Outpatient R NISA [facility] [id number] Univers 00:00:00 00:00:00 WONDIFUL ity o f [facility] 2020-09-10 2020-09-10 Outpatient R DONITA [facility] [id number] Univers 08:00:00 08:00:00 SHANTI [facility] 2020-09-08 2020-09-08 Outpatient R STEFFANIE, [facility] [id number] Univers 08:00:00 08:00:00 EMERY ity o f [facility] 2020-09-04 2020-09-04 Outpatient R NISA [facility] [id number] Univers 16:00:00 16:00:00 WONDIFUL ity o f [facility] 2020-08-26 2020-08-26 Patient Nisa [facility] [id number] Univers 00:00:00 00:00:00 Secure Ms Wondiful A HEALTH [id number] ity of [place] [id number] Emanuel as PROFESSIO [phone] Nv dical [place] [address] [address] OFFICE BUILDING ONE 2020-08-25 2020-08-25 Outpatient R NISA [facility] [id number] Univers 11:00:00 11:13:03 WONDIFUL ity o f [facility] 2020-08-25 2020-08-25 Outpatient R NISA [facility] [id number] Univers 10:30:00 10:30:00 WONDIFUL ity o f [facility] 2020-08-06 2020-08-06 Outpatient R PATRICIO [facility] [id number] Univers 10:20:00 10:20:00 BALJIT [facility] 2020-08-06 2020-08-06 Outpatient R PATRICIO [facility] [id number] Univers 09:00:00 09:00:00 BALJIT [facility] 2020-08-01 2020-08-01 Outpatient R WIL, [facility] [id number] Univers 10:00:00 10:00:00 ANBELLA [facility] 2020-07-18 2020-07-18 Outpatient R LAILA ORELLANA [facility] [id number] Univers 11:00:00 11:00:00 LAILA ORELLANA i [facility] 2020-07-17 2020-07-17 Outpatient R VIK OLIVEIRA [facility] [id number] Univers 12:00:00 12:00:00 [facility] 2020-07-14 2020-07-14 Outpatient R NISA, [facility] [id number] Univers 10:45:00 10:45:00 WONDIFUL ity o f [facility] 2020-07-07 2020-07-07 Outpatient R MAKSIM, [facility] [id number] Univers 08:30:00 08:30:00 AUBRIE [facility] 2020-06-27 2020-06-27 Outpatient R NISA [facility] [id number] Univers 15:15:00 15:15:00 WONDIFUL ity o f [facility] 2020-06-12 2020-06-12 Outpatient R MAKSIM, [facility] [id number] Univers 15:45:00 15:45:00 AUBRIE [facility] 2020-06-05 2020-06-05 Outpatient R MOMO, [facility] [id number] Univers 10:30:00 10:30:00 ISAC [facility] 2020-06-03 2020-06-03 Outpatient R ATUL, [facility] [id number] Univers 09:00:00 09:00:00 RICARDO [facility] 2020-05-16 2020-05-16 Outpatient R VIK OLIVEIRA [facility] [id number] Univers 16:30:00 16:30:00 ity [facility] 2020-05-09 2020-05-09 Outpatient R [facility] [id number] Univers 10:20:00 10:20:00 ity [facility] 2020-04-21 2020-04-21 Outpatient R FARTUNHAVEN, [facility] [id number] Univers 11:40:00 11:40:00 DORITA [facility] 2020-04-18 2020-04-18 Outpatient R POLLARD, [facility] [id number] Univers 09:30:00 09:30:00 SENDIL [facility] 2020-04-15 2020-04-15 Outpatient R [facility] [id number] Univers 10:20:00 10:20:00 [facility] 2020-04-04 2020-04-04 Outpatient R [facility] [id number] Univers 10:00:00 10:00:00 y [facility] 2020-04-01 2020-04-01 Outpatient R [facility] [id number] Univers 08:00:00 08:00:00 [facility] 2020-03-20 2020-03-20 Outpatient R ROMARIO, [facility] [id number] Univers 10:00:00 10:00:00 FABRICIO [facility] 2020-03-10 2020-03-10 Outpatient R MIKAYLA, [facility] [id number] Univers 08:45:00 08:45:00 CL [facility] 2020-03-03 2020-03-03 Outpatient R MAKSIM, [facility] [id number] Univers 08:00:00 08:00:00 AUBRIE [facility] 2020-01-22 2020-01-22 Outpatient R MOMO [facility] [id number] Univers 15:45:00 15:45:00 ISAC [facility] 2020-01-22 2020-01-22 [facility] [id number] Univers 10:45:00 10:45:00 ISAC [facility] 2020-01-18 2020-01-18 Outpatient R DAPHNEY SÁNCHEZ [facility] [id number] Univers 11:30:00 11:30:00 ity [facility] 2020-01-11 2020-01-11 Outpatient R LAILA ORELLANA [facility] [id number] Univers 11:00:00 11:00:00 LAILA ORELLANA i ty [facility] 2020-01-10 2020-01-10 Outpatient R NISA, [facility] [id number] Univers 10:00:00 10:00:00 WONDIFUL ity o f [facility] 2020-01-04 2020-01-04 Outpatient R VIK OLIVEIRA [facility] [id number] Univers 11:30:00 11:30:00 [facility] 2020-01-01 2020-01-01 Outpatient R [facility] [id number] Univers 08:00:00 08:00:00 [facility] 2019-12-21 2019-12-21 [facility] [id number] Univers 09:30:00 09:30:00 WONDIFUL ity o f [facility] 2019-12-06 2019-12-06 [facility] [id number] Univers 11:00:00 11:00:00 FABRICIO [facility] 2019-11-30 2019-11-30 [facility] [id number] Univers 10:30:00 10:30:00 [facility] 2019-11-29 2019-11-29 [facility] [id number] Univers 08:15:00 08:15:00 [facility] 2019-11-23 2019-11-23 Outpatient R [facility] [id number] Univers 08:00:00 08:00:00 [facility] Results Test Description Test Time Test Comments Results Result Comments Source CHEMISTRY 2023-07-21 12:15:00 Test Item Value Reference Range Interpretation Comme nts eGFR (test code = eGFR) 107 [facility] [place]nzivudXWVCLIYZQ8873-54-51 12:15:00 Test Item Value Reference Range Interpretation Comments Magnesium Lvl (test code = Magnesium 1.4 1.8-2.4 Lvl) [facility] HospitalEunnhgxXUNARMFQP0990-90-02 12:15:00 Test Item Value Reference Range Interpretation Comments Phosphorus (test code = Phosphorus) 3.0 2.5-4.5 [facility] CenterGfxmfuvSZVPFVKHEM0567-47-03 12:15:00 Test Item Value Reference Range Interpretation Comments WBC (test code = WBC) 3.4 3.7-10.4 [place] 752033-10-26 12:15:00 Test Item Value Reference Range Interpretation Comments RBC (test code = RBC) 2.55 4.20-5.40 [place] 752033-10-26 12:15:00 Test Item Value Reference Range Interpretation Comments Hgb (test code = Hgb) 8.3 12.0-16.0 [facility] CenterDjgfuvxQENHPLLHAX1090-95-82 12:15:00 Test Item Value Reference Range Interpretation Comments Hct (test code = Hct) 24.5 36.0-48.0 [place] 752033-10-26 12:15:00 Test Item Value Reference Range Interpretation Comments MCV (test code = MCV) 95.9 80.0-98.0 [place] 752033-10-26 12:15:00 Test Item Value Reference Range Interpretation Comments MCH (test code = MCH) 32.4 pg 27.0-31.0 [facility] CenterTzxhwndKVEZREOPWB9146-42-03 12:15:00 Test Item Value Reference Range Interpretation Comments MCHC (test code = MCHC) 33.8 32.0-36.0 [facility] CenterEzzhxqjZKTBLMTIPB9244-34-47 12:15:00 Test Item Value Reference Range Interpretation Comments RDW (test code = RDW) 17.2 11.5-14.5 [place] 752033-10-26 12:15:00 Test Item Value Reference Range Interpretation Comments Platelet (test code = Platelet) 228 133-450 [facility] CenterAdrxrimJACOTBIJWM1758-80-02 12:15:00 Test Item Value Reference Range Interpretation Comments MPV (test code = MPV) 8.1 7.4-10.4 [place] [address]-10-26 12:15:00 Test Item Value Reference Range Interpretation Comments Segs (test code = Segs) 70.0 45.0-75.0 [place] 752033-10-26 12:15:00 Test Item Value Reference Range Interpretation Comments Lymphocytes (test code = Lymphocytes) 20.0 20.0-40.0 [place] 752033-10-26 12:15:00 Test Item Value Reference Range Interpretation Comments Monocytes (test code = Monocytes) 5.8 2.0-12.0 [place] [address]-10-26 12:15:00 Test Item Value Reference Range Interpretation Comments Eosinophils (test code = Eosinophils) 3.5 <=4.0 [place] [address]-10-26 12:15:00 Test Item Value Reference Range Interpretation Comments Basophils (test code = Basophils) 0.7 <=1.0 [place] [address]-10-26 12:15:00 Test Item Value Reference Range Interpretation Comments Neutrophils # (test code = Neutrophils 2.3 1.5-8.1 #) [facility] CenterAifqmbbAGPCWGWUOL2790-67-53 12:15:00 Test Item Value Reference Range Interpretation Comments Lymphocytes # (test code = Lymphocytes 0.7 1.0-5.5 #) [facility] CenterVbromaqYVVQVWBDBI0444-33-32 12:15:00 Test Item Value Reference Range Interpretation Comments Monocytes # (test code = Monocytes #) 0.2 <=0.8 [place] [address]-10-26 12:15:00 Test Item Value Reference Range Interpretation Comments Eosinophils # (test code = Eosinophils 0.1 <=0.5 #) [facility] HospitalJlxcumpOBCMVBBGN7033-71-86 12:15:00 Test Item Value Reference Range Interpretation Comments Glucose Lvl (test code = Glucose Lvl) 77 70-99 [place] 394853-10-26 12:15:00 Test Item Value Reference Range Interpretation Comments BUN (test code = BUN) 5 7-22 [place] 394853-10-26 12:15:00 Test Item Value Reference Range Interpretation Comments Creatinine Lvl (test code = Creatinine 0.67 0.50-1.40 Lvl) [facility] HospitalKbfphyxZHIFVKKBV2065-44-10 12:15:00 Test Item Value Reference Range Interpretation Comments Sodium Lvl (test code = Sodium Lvl) 141 135-145 [facility] HospitalMborhfxPATDMNHNF3755-05-81 12:15:00 Test Item Value Reference Range Interpretation Comments Potassium Lvl (test code = Potassium 3.9 3.5-5.1 Lvl) [facility] HospitalGurblfcZQXMPVKDI8998-93-42 12:15:00 Test Item Value Reference Range Interpretation Comments Chloride Lvl (test code = Chloride Lvl) 111 95-109 [facility] HospitalMibusrlOKIQYFUVN8494-30-98 12:15:00 Test Item Value Reference Range Interpretation Comments CO2 (test code = CO2) [facility] HospitalUdryckxKHZSGICWP2083-60-40 12:15:00 Test Item Value Reference Range Interpretation Comments Calcium Lvl (test code = Calcium Lvl) 7.6 8.5-10.5 [facility] HospitalOjznkcfVCULBTIDW0562-84-67 12:15:00 Test Item Value Reference Range Interpretation Comments AGAP (test code = AGAP) 5.9 10.0-20.0 [facility] HospitalXxhzeqlSRBJYVLCW2293-93-71 12:15:00 Test Item Value Reference Range Interpretation Comments Glucose Lvl (test code = Glucose Lvl) 77 70-99 [facility] HospitalCbrbrnnIDBCXEWZS2012-90-69 12:15:00 Test Item Value Reference Range Interpretation Comments BUN (test code = BUN) 5 - [facility] HospitalQznonznGBUETHMNJ5074-92-22 12:15:00 Test Item Value Reference Range Interpretation Comments Creatinine Lvl (test code = Creatinine 0.67 0.50-1.40 Lvl) [facility] HospitalYtqxfydXMGPZJJSN2032-36-33 12:15:00 Test Item Value Reference Range Interpretation Comments Sodium Lvl (test code = Sodium Lvl) 141 135-145 [facility] HospitalDqyxdecFEAFSZPIT9620-96-62 12:15:00 Test Item Value Reference Range Interpretation Comments Potassium Lvl (test code = Potassium 3.9 3.5-5.1 Lvl) [facility] HospitalZilmjqwCNAWGOZZJ5428-97-30 12:15:00 Test Item Value Reference Range Interpretation Comments Chloride Lvl (test code = Chloride Lvl) 111 95-109 [facility] HospitalYioyognUOZHJTLQN5636-35-40 12:15:00 Test Item Value Reference Range Interpretation Comments CO2 (test code = CO2) [facility] HospitalWwasfteVZFJERXZB7553-02-27 12:15:00 Test Item Value Reference Range Interpretation Comments Calcium Lvl (test code = Calcium Lvl) 7.6 8.5-10.5 [facility] HospitalAfgahqlRTFWNMTTX3254-21-94 12:15:00 Test Item Value Reference Range Interpretation Comments AGAP (test code = AGAP) 5.9 10.0-20.0 [place] [address]-10-26 12:15:00 Test Item Value Reference Range Interpretation Comments eGFR (test code = eGFR) 107 [facility] HospitalIhvoivnKSSOVZKXL2384-97-80 12:15:00 Test Item Value Reference Range Interpretation Comments Magnesium Lvl (test code = Magnesium 1.4 1.8-2.4 Lvl) [facility] HospitalCstclgePGHLPNVNY9072-74-83 12:15:00 Test Item Value Reference Range Interpretation Comments Phosphorus (test code = Phosphorus) 3.0 2.5-4.5 [facility] CenterKyufnhhLUJXZCHBML5571-14-92 12:15:00 Test Item Value Reference Range Interpretation Comments WBC (test code = WBC) 3.4 3.7-10.4 [facility] CenterFrjuqhlONNQUSNBXX0422-98-88 12:15:00 Test Item Value Reference Range Interpretation Comments RBC (test code = RBC) 2.55 4.20-5.40 [facility] CenterGwxxrofQDOADEAQRF7864-30-28 12:15:00 Test Item Value Reference Range Interpretation Comments Hgb (test code = Hgb) 8.3 12.0-16.0 [facility] CenterTugrjbkDYHCFBYHMU1942-22-34 12:15:00 Test Item Value Reference Range Interpretation Comments Hct (test code = Hct) 24.5 36.0-48.0 [facility] CenterLnfvwnkIZDPIBDHZQ4507-47-64 12:15:00 Test Item Value Reference Range Interpretation Comments MCV (test code = MCV) 95.9 80.0-98.0 [facility] CenterWqyesirPGJXMNYPGI6539-52-73 12:15:00 Test Item Value Reference Range Interpretation Comments MCH (test code = MCH) 32.4 pg 27.0-31.0 [facility] CenterFppbkhsVGZUFPNZGU2173-12-14 12:15:00 Test Item Value Reference Range Interpretation Comments MCHC (test code = MCHC) 33.8 32.0-36.0 [facility] CenterSfzlstuTVSOCYZMFZ8411-76-25 12:15:00 Test Item Value Reference Range Interpretation Comments RDW (test code = RDW) 17.2 11.5-14.5 [facility] CenterDrdeyetRRHBVKKEGB6894-74-83 12:15:00 Test Item Value Reference Range Interpretation Comments Platelet (test code = Platelet) 228 133-450 [facility] CenterUhdgygkGKATAJXIEB2227-21-24 12:15:00 Test Item Value Reference Range Interpretation Comments MPV (test code = MPV) 8.1 7.4-10.4 [facility] CenterFwfhirbSVCVBOETGJ3045-44-46 12:15:00 Test Item Value Reference Range Interpretation Comments Segs (test code = Segs) 70.0 45.0-75.0 [facility] CenterZsurbxjDOPYXIUPTQ3500-40-62 12:15:00 Test Item Value Reference Range Interpretation Comments Lymphocytes (test code = Lymphocytes) 20.0 20.0-40.0 [facility] CenterNygkxosUJOPXDBNPK3373-48-97 12:15:00 Test Item Value Reference Range Interpretation Comments Monocytes (test code = Monocytes) 5.8 2.0-12.0 [facility] CenterCpialwuJDXQTODFVP3376-40-86 12:15:00 Test Item Value Reference Range Interpretation Comments Eosinophils (test code = Eosinophils) 3.5 <=4.0 [facility] CenterOypflnjXMTQRKBVJB3320-16-12 12:15:00 Test Item Value Reference Range Interpretation Comments Basophils (test code = Basophils) 0.7 <=1.0 [facility] CenterPkeunltVXHSEXSUKK3332-51-86 12:15:00 Test Item Value Reference Range Interpretation Comments Neutrophils # (test code = Neutrophils 2.3 1.5-8.1 #) [facility] CenterLfznqcxMNFWEFALIH2375-24-27 12:15:00 Test Item Value Reference Range Interpretation Comments Lymphocytes # (test code = Lymphocytes 0.7 1.0-5.5 #) [facility] CenterKpzpcqaWDMXZKXPXV0052-07-80 12:15:00 Test Item Value Reference Range Interpretation Comments Monocytes # (test code = Monocytes #) 0.2 <=0.8 [facility] CenterPsfrvgtRBUUUDOSLD4457-93-19 12:15:00 Test Item Value Reference Range Interpretation Comments Eosinophils # (test code = Eosinophils 0.1 <=0.5 #) [facility] Negin auris Tyigwx4838-15-48 18:49:00 Test Item Value Reference Range Interpretation Comments C Negin auris Fungal Negin auris Isolated (test code = C Negin auris Fungal) [facility] fmgpw1256-61-70 18:49:00 Test Item Value Reference Range Interpretation Comments Negin auris (test code = Negin auris Negin auris) [facility] Negin auris Nbtnib1469-20-54 18:49:00 Test Item Value Reference Range Interpretation Comments C Negin auris Fungal Negin auris Isolated (test code = C Negin auris Fungal) [facility] lxsnh2254-70-03 18:49:00 Test Item Value Reference Range Interpretation Comments Negin auris (test code = Negin auris Negin auris) [facility] TylerYsscsjmYQSDSODBEA1983-42-54 10:40:00 Test Item Value Reference Range Interpretation Comments RBC Morph (test code = Normal (07/20/23 5:40 RBC Morph) AM) [facility] CenterGomsxupHBCBQSGJQV7909-21-50 10:40:00 Test Item Value Reference Range Interpretation Comments Plt Morph (test code = Normal (07/20/23 5:40 Plt Morph) AM) [facility] CenterSbqrvxqZTMPGBRHBT4215-21-42 10:40:00 Test Item Value Reference Range Interpretation Comments RBC Morph (test code = Normal (07/20/23 5:40 RBC Morph) AM) [facility] CenterTddupfkQPAYCTDVBS1812-57-53 10:40:00 Test Item Value Reference Range Interpretation Comments Plt Morph (test code = Normal (07/20/23 5:40 Plt Morph) AM) [place] [id number] 21:23:28 Test Item Value Reference Range Interpretation Comments RADRPT (test code = PROCEDURE INFORMATION: RADRPT) Exam: XR Chest Exam date and time: 07/19/2023 3:11 PM Age: 47 years old Clinical indication: /cough TECHNIQUE: Imaging protocol: Radiologic exam of the chest. Views: 1 view. COMPARISON: CHEST 1VIEW DX 07/01/2023 3:26 PM FINDINGS: Lungs: Low lung volumes with diffuse bilateral the interstitial opacities. Atelectatic changes in the right perihilar and lower lung zone. Pleural spaces: Small bilateral pleural effusion. Heart/Mediastinum: Heart size normal. Bones/joints: Unremarkable. Soft tissues: Right arm midline terminates in the proximal brachial region. IMPRESSION: Low lung volumes with bilateral infiltrates, atelectasis and small pleural effusions. Correlate clinically for edema and/or pneumonia.Harshal Ivan MD On 07/19/2023 16:22:37; [id number] [place] [id number] 21:23:28 Test Item Value Reference Range Interpretation Comments RADRPT (test code = PROCEDURE INFORMATION: RADRPT) Exam: XR Chest Exam date and time: 07/19/2023 3:11 PM Age: 47 years old Clinical indication: /cough TECHNIQUE: Imaging protocol: Radiologic exam of the chest. Views: 1 view. COMPARISON: CHEST 1VIEW DX 07/01/2023 3:26 PM FINDINGS: Lungs: Low lung volumes with diffuse bilateral the interstitial opacities. Atelectatic changes in the right perihilar and lower lung zone. Pleural spaces: Small bilateral pleural effusion. Heart/Mediastinum: Heart size normal. Bones/joints: Unremarkable. Soft tissues: Right arm midline terminates in the proximal brachial region. IMPRESSION: Low lung volumes with bilateral infiltrates, atelectasis and small pleural effusions. Correlate clinically for edema and/or pneumonia.Harshal Ivan MD On 07/19/2023 16:22:37; [id number] [place] [address]-10-22 21:13:00 Test Item Value Reference Range Interpretation Comments PT (test code = PT) 17.1 s 12.0-14.7 [place] [id number] 21:13:00 Test Item Value Reference Range Interpretation Comments INR (test code = INR) 1.39 1 0.85-1.17 [place] [address]-10-22 21:13:00 Test Item Value Reference Range Interpretation Comments PT (test code = PT) 17.1 s 12.0-14.7 [place] [address]-10-22 21:13:00 Test Item Value Reference Range Interpretation Comments INR (test code = INR) 1.39 1 0.85-1.17 [place] [id number] 21:01:00 Test Item Value Reference Range Interpretation Comments Glucose POC (test code = Glucose POC) 143 70-99 [place] 415153-10-21 21:01:00 Test Item Value Reference Range Interpretation Comments Gluc POC Comment 1 (test code Notified RN/MD = Gluc POC Comment 1) [place] [address]-10-21 21:01:00 Test Item Value Reference Range Interpretation Comments Glucose POC (test code = Glucose POC) 143 70-99 [place] [address]-10-21 21:01:00 Test Item Value Reference Range Interpretation Comments Gluc POC Comment 1 (test code Notified RN/MD = Gluc POC Comment 1) [facility]PT:ISOLATE:ORDQN:[id number] 19:29:00 Test Item Value Reference Range Interpretation Comments Culture: Urine (test >100,000 CFU/mL code = Culture: Escherichia coli ESBL , Urine) Multi-drug Resistant Organism <10,000 CFU/mL [facility]TETRACYCLINE[facility]SUSC:PT:ISOLATE:ORDQN:[id number] 19:29:00 Test Item Value Reference Range Interpretation Comments Escherichia coli ESBL Escherichia coli ESBL (test code = Escherichia coli ESBL) [facility] [id number] 19:29:00 Test Item Value Reference Range Interpretation Comments UA Color (test code = Yellow *NA*(07/14/23 UA Color) 2:29 PM) [facility] [id number] 19:29:00 Test Item Value Reference Range Interpretation Comments UA Turbidity (test code Cloudy *ABN*(07/14/23 = UA Turbidity) 2:29 PM) [facility] [id number] 19:29:00 Test Item Value Reference Range Interpretation Comments UA Spec Grav (test code = UA Spec 1.015 1 Grav) [facility] [id number] 19:29:00 Test Item Value Reference Range Interpretation Comments UA pH (test code = UA pH) 6.0 1 5.0-8.0 [facility] [id number] 19:29:00 Test Item Value Reference Range Interpretation Comments UA Protein (test code = Trace *ABN*(07/14/23 UA Protein) 2:29 PM) [facility] [id number] 19:29:00 Test Item Value Reference Range Interpretation Comments UA Glucose (test code Negative (07/14/23 2:29 = UA Glucose) PM) [facility] [id number] 19:29:00 Test Item Value Reference Range Interpretation Comments UA Ketones (test code Negative *NA*(07/14/23 = UA Ketones) 2:29 PM) [facility] [id number] 19:29:00 Test Item Value Reference Range Interpretation Comments UA Bili (test code = Negative *NA*(07/14/23 UA Bili) 2:29 PM) [facility] [id number] 19:29:00 Test Item Value Reference Range Interpretation Comments UA Blood (test code = Trace *ABN*(07/14/23 UA Blood) 2:29 PM) [facility] [id number] 19:29:00 Test Item Value Reference Range Interpretation Comments UA Urobilinogen (test code = UA 0.2 0.1-1.0 Urobilinogen) [facility] [id number] 19:29:00 Test Item Value Reference Range Interpretation Comments UA Nitrite (test code Positive *ABN*(07/14/23 = UA Nitrite) 2:29 PM) [facility] [id number] 19:29:00 Test Item Value Reference Range Interpretation Comments UA Leuk Est (test Moderate *ABN*(07/14/23 code = UA Leuk Est) 2:29 PM) [facility] [id number] 19:29:00 Test Item Value Reference Range Interpretation Comments UA Sq Epi (test code = UA Sq Occasional /LPF Epi) [facility] [id number] 19:29:00 Test Item Value Reference Range Interpretation Comments UA WBC (test code = UA WBC) 80 <=5 [facility] [id number] 19:29:00 Test Item Value Reference Range Interpretation Comments UA RBC (test code = UA RBC) 8 <=2 [facility] [id number] 19:29:00 Test Item Value Reference Range Interpretation Comments UA Bacteria (test code = UA Occasional /HPF Bacteria) [facility]ET[facility]ACYCLINE[facility]SUSC:PT:ISOLATE:ORDQN:[id number] 19:29:00 Test Item Value Reference Range Interpretation Comments Culture: Urine (test >100,000 CFU/mL code = Culture: Escherichia coli ESBL , Urine) Multi-drug Resistant Organism <10,000 CFU/mL [facility]annTETRACYCLINE:SUSC:PT:ISOLATE:ORDQN:[id number] 19:29:00 Test Item Value Reference Range Interpretation Comments Escherichia coli ESBL Escherichia coli ESBL (test code = Escherichia coli ESBL) [facility] [id number] 19:29:00 Test Item Value Reference Range Interpretation Comments UA Color (test code = Yellow *NA*(07/14/23 UA Color) 2:29 PM) [facility] [id number] 19:29:00 Test Item Value Reference Range Interpretation Comments UA Turbidity (test code Cloudy *ABN*(07/14/23 = UA Turbidity) 2:29 PM) [facility] [id number] 19:29:00 Test Item Value Reference Range Interpretation Comments UA Spec Grav (test code = UA Spec 1.015 1 Grav) [facility] [id number] 19:29:00 Test Item Value Reference Range Interpretation Comments UA pH (test code = UA pH) 6.0 1 5.0-8.0 [facility] [id number] 19:29:00 Test Item Value Reference Range Interpretation Comments UA Protein (test code = Trace *ABN*(07/14/23 UA Protein) 2:29 PM) [facility] [id number] 19:29:00 Test Item Value Reference Range Interpretation Comments UA Glucose (test code Negative (07/14/23 2:29 = UA Glucose) PM) [facility] [id number] 19:29:00 Test Item Value Reference Range Interpretation Comments UA Ketones (test code Negative *NA*(07/14/23 = UA Ketones) 2:29 PM) [facility] [id number] 19:29:00 Test Item Value Reference Range Interpretation Comments UA Bili (test code = Negative *NA*(07/14/23 UA Bili) 2:29 PM) [facility] [id number] 19:29:00 Test Item Value Reference Range Interpretation Comments UA Blood (test code = Trace *ABN*(07/14/23 UA Blood) 2:29 PM) [facility] [id number] 19:29:00 Test Item Value Reference Range Interpretation Comments UA Urobilinogen (test code = UA 0.2 0.1-1.0 Urobilinogen) [facility] [id number] 19:29:00 Test Item Value Reference Range Interpretation Comments UA Nitrite (test code Positive *ABN*(07/14/23 = UA Nitrite) 2:29 PM) [facility] [id number] 19:29:00 Test Item Value Reference Range Interpretation Comments UA Leuk Est (test Moderate *ABN*(07/14/23 code = UA Leuk Est) 2:29 PM) [facility] [id number] 19:29:00 Test Item Value Reference Range Interpretation Comments UA Sq Epi (test code = UA Sq Occasional /LPF Epi) [facility] [id number] 19:29:00 Test Item Value Reference Range Interpretation Comments UA WBC (test code = UA WBC) 80 <=5 [facility] [id number] 19:29:00 Test Item Value Reference Range Interpretation Comments UA RBC (test code = UA RBC) 8 <=2 [facility] [id number] 19:29:00 Test Item Value Reference Range Interpretation Comments UA Bacteria (test code = UA Occasional /HPF Bacteria) [facility] YyvahvgQCGJEMYZZ5263-11-95 15:23:00 Test Item Value Reference Range Interpretation Comments Total Protein (test code = Total 4.4 6.4-8.4 Protein) [facility]XxbdzcyZNWZENWVG9975-40-13 15:23:00 Test Item Value Reference Range Interpretation Comments Albumin Lvl (test code = Albumin Lvl) 1.5 3.5-5.0 [facility] FtygeboTLCYNQDHQ3819-23-03 15:23:00 Test Item Value Reference Range Interpretation Comments ALT (test code = ALT) 25 <=65 [facility] MpzuibbHJXHFHISX6634-67-62 15:23:00 Test Item Value Reference Range Interpretation Comments AST (test code = AST) 33 <=37 [facility] UpnryycXOEPETLMG8934-11-68 15:23:00 Test Item Value Reference Range Interpretation Comments Alk Phos (test code = Alk Phos) 250 39-136 [facility] PfoasidRCGTVXDJM0251-28-60 15:23:00 Test Item Value Reference Range Interpretation Comments Bili Total (test code = Bili Total) 0.6 0.2-1.3 [facility] YtjuiloQMLNSKYNT5606-11-92 15:23:00 Test Item Value Reference Range Interpretation Comments Bili Direct (test code = Bili Direct) 0.2 <=0.3 [facility] BkxpdynUHCYVFJWN2551-64-88 15:23:00 Test Item Value Reference Range Interpretation Comments Bili Indirect (test code = Bili 0.4 <=1.0 Indirect) [facility]BxiujooFQPYRZEIU4076-29-11 15:23:00 Test Item Value Reference Range Interpretation Comments Globulin (test code = Globulin) 2.9 2.7-4.2 [facility] HeightsBtnmbyeEQWTJKVGR8227-87-45 15:23:00 Test Item Value Reference Range Interpretation Comments A/G Ratio (test code = A/G Ratio) 0.5 1 0.7-1.6 [facility] HeightsJnpvotzSXQOXHZFP8941-67-86 15:23:00 Test Item Value Reference Range Interpretation Comments Total Protein (test code = Total 4.4 6.4-8.4 Protein) [facility]ZrrvqreUQIHTVKZH2025-81-45 15:23:00 Test Item Value Reference Range Interpretation Comments Albumin Lvl (test code = Albumin Lvl) 1.5 3.5-5.0 [facility] HeightsTmtcuidUCQQVQUSF3602-40-70 15:23:00 Test Item Value Reference Range Interpretation Comments ALT (test code = ALT) 25 <=65 [facility] HeightsVfhlatbPJCXOIORI6056-18-76 15:23:00 Test Item Value Reference Range Interpretation Comments AST (test code = AST) 33 <=37 [facility] HeightsGrrhuuvICQIXUVOQ8011-55-57 15:23:00 Test Item Value Reference Range Interpretation Comments Alk Phos (test code = Alk Phos) 250 39-136 [facility] HeightsNedlspmEFHXEXWUH5310-49-67 15:23:00 Test Item Value Reference Range Interpretation Comments Bili Total (test code = Bili Total) 0.6 0.2-1.3 [facility] HeightsKgkjwbfNSBREJFWF1507-27-19 15:23:00 Test Item Value Reference Range Interpretation Comments Bili Direct (test code = Bili Direct) 0.2 <=0.3 [facility] HeightsYhodwluESCKGYAUH9139-64-63 15:23:00 Test Item Value Reference Range Interpretation Comments Bili Indirect (test code = Bili 0.4 <=1.0 Indirect) [facility] HospitalYmmfmbaELRCEOONM2888-70-90 15:23:00 Test Item Value Reference Range Interpretation Comments Globulin (test code = Globulin) 2.9 2.7-4.2 [facility] HeightsJsopyjmYNBMSVOZD2225-91-59 15:23:00 Test Item Value Reference Range Interpretation Comments A/G Ratio (test code = A/G Ratio) 0.5 1 0.7-1.6 [facility]2023-10-16 21:49:00 Test Item Value Reference Range Interpretation Comments Glucose POC (test code = Glucose POC) 94 70-99 [place] [address]-10-16 21:49:00 Test Item Value Reference Range Interpretation Comments Gluc POC Comment 1 (test code Notified RN/MD = Gluc POC Comment 1) [place] [id number] 21:49:00 Test Item Value Reference Range Interpretation Comments Gluc POC Comment 2 (test code = Cleaned Meter Gluc POC Comment 2) [place] [address]-10-16 21:49:00 Test Item Value Reference Range Interpretation Comments Glucose POC (test code = Glucose POC) 94 70-99 [place] [address]-10-16 21:49:00 Test Item Value Reference Range Interpretation Comments Gluc POC Comment 1 (test code Notified RN/MD = Gluc POC Comment 1) [place] [address]-10-16 21:49:00 Test Item Value Reference Range Interpretation Comments Gluc POC Comment 2 (test code = Cleaned Meter Gluc POC Comment 2) [place] [address]-10-16 21:49:00 Test Item Value Reference Range Interpretation Comments Glucose POC (test code = Glucose POC) 94 70-99 [place] [address]-10-16 21:49:00 Test Item Value Reference Range Interpretation Comments Gluc POC Comment 1 (test code Notified RN/MD = Gluc POC Comment 1) [place] 415153-10-16 21:49:00 Test Item Value Reference Range Interpretation Comments Gluc POC Comment 2 (test code = Cleaned Meter Gluc POC Comment 2) [facility] HospitalTyfulwrRRVZZGTBC7447-82-77 10:08:00 Test Item Value Reference Range Interpretation Comments Glucose Lvl (test code = Glucose Lvl) 77 70-99 [place] [address]-10-16 10:08:00 Test Item Value Reference Range Interpretation Comments BUN (test code = BUN) 4 7-22 [facility] HospitalLliefmdBFHOFGOLR3172-57-16 10:08:00 Test Item Value Reference Range Interpretation Comments Creatinine Lvl (test code = Creatinine 0.91 0.50-1.40 Lvl) [place] 394853-10-16 10:08:00 Test Item Value Reference Range Interpretation Comments Sodium Lvl (test code = Sodium Lvl) 140 135-145 [place] 394853-10-16 10:08:00 Test Item Value Reference Range Interpretation Comments Potassium Lvl (test code = Potassium 4.6 3.5-5.1 Lvl) [facility] HospitalJiewzzhZCBCSORRB6024-06-40 10:08:00 Test Item Value Reference Range Interpretation Comments Chloride Lvl (test code = Chloride Lvl) 112 95-109 [facility] HospitalOxsoppqKZTLXLIGA2805-45-80 10:08:00 Test Item Value Reference Range Interpretation Comments CO2 (test code = CO2) 24 24-32 [facility] HospitalEfdwxfxDSLWUALRK1221-38-29 10:08:00 Test Item Value Reference Range Interpretation Comments Calcium Lvl (test code = Calcium Lvl) 8.0 8.5-10.5 [facility] HospitalMzvmvbiIWRKOZPQR4479-88-17 10:08:00 Test Item Value Reference Range Interpretation Comments AGAP (test code = AGAP) 8.6 10.0-20.0 [facility] HospitalDxvptsoAXXKXZBTM7391-08-87 10:08:00 Test Item Value Reference Range Interpretation Comments eGFR (test code = eGFR) 77 [facility] HospitalYzrgefkFPZCPUOJS4826-87-54 10:08:00 Test Item Value Reference Range Interpretation Comments Phosphorus (test code = Phosphorus) 3.6 2.5-4.5 [facility] HospitalCytrtxjNKNSDRCKE2057-04-46 10:08:00 Test Item Value Reference Range Interpretation Comments Magnesium Lvl (test code = Magnesium 1.6 1.8-2.4 Lvl) [facility] CenterAmmlhurNNAZAXJJAW6335-37-31 10:08:00 Test Item Value Reference Range Interpretation Comments WBC (test code = WBC) 2.2 3.7-10.4 [facility] CenterJpojjjdPNMOGZJAMO8087-05-97 10:08:00 Test Item Value Reference Range Interpretation Comments RBC (test code = RBC) 2.31 4.20-5.40 [facility] CenterRnrxeldXNBBORFJHV1796-85-88 10:08:00 Test Item Value Reference Range Interpretation Comments Hgb (test code = Hgb) 7.6 12.0-16.0 [facility] CenterYhccxrcMMEDVMVMES9574-72-09 10:08:00 Test Item Value Reference Range Interpretation Comments Hct (test code = Hct) 22.0 36.0-48.0 [facility] CenterLxsnhuxOUDIXJUHDX1630-95-68 10:08:00 Test Item Value Reference Range Interpretation Comments MCV (test code = MCV) 95.1 80.0-98.0 [facility] CenterIrioiceOREYNSPQUL7762-08-87 10:08:00 Test Item Value Reference Range Interpretation Comments MCH (test code = MCH) 32.7 pg 27.0-31.0 [facility] CenterTekcpspXCIRYOJDCE9377-29-48 10:08:00 Test Item Value Reference Range Interpretation Comments MCHC (test code = MCHC) 34.4 32.0-36.0 [facility] CenterWsbanvrJGDNYJCJRF5455-08-68 10:08:00 Test Item Value Reference Range Interpretation Comments RDW (test code = RDW) 17.2 11.5-14.5 [facility] CenterUisgbqbRRTLLGMZCF4786-03-67 10:08:00 Test Item Value Reference Range Interpretation Comments Platelet (test code = Platelet) 227 133-450 [facility] CenterVkvrbxsLCGACBHQUL9701-82-89 10:08:00 Test Item Value Reference Range Interpretation Comments MPV (test code = MPV) 8.5 7.4-10.4 [facility] CenterVkvnikmSBTRCARAPX4557-22-18 10:08:00 Test Item Value Reference Range Interpretation Comments Segs (test code = Segs) 59.9 45.0-75.0 [facility] CenterDiohhixXMWASQIPQL6560-16-32 10:08:00 Test Item Value Reference Range Interpretation Comments Lymphocytes (test code = Lymphocytes) 22.5 20.0-40.0 [facility] CenterRrbrrluOJFMYAKNOP4547-06-87 10:08:00 Test Item Value Reference Range Interpretation Comments Monocytes (test code = Monocytes) 11.0 2.0-12.0 [facility] CenterJawlyuaBYSFIHFZHJ4942-49-51 10:08:00 Test Item Value Reference Range Interpretation Comments Eosinophils (test code = Eosinophils) 5.3 <=4.0 [facility] CenterDwnzggcLONOKAMEQS3906-83-70 10:08:00 Test Item Value Reference Range Interpretation Comments Basophils (test code = Basophils) 1.3 <=1.0 [facility] CenterNoxbqmjGBEACZSGIK4317-32-46 10:08:00 Test Item Value Reference Range Interpretation Comments Neutrophils # (test code = Neutrophils 1.3 1.5-8.1 #) [facility] CenterKephxahZHSJDSQJON7089-57-37 10:08:00 Test Item Value Reference Range Interpretation Comments Lymphocytes # (test code = Lymphocytes 0.5 1.0-5.5 #) [facility] CenterRrgrruqRPHOKIOARM0035-27-42 10:08:00 Test Item Value Reference Range Interpretation Comments Monocytes # (test code = Monocytes #) 0.2 <=0.8 [facility] CenterOszzjzuTBEOTNHVGT6849-97-70 10:08:00 Test Item Value Reference Range Interpretation Comments Eosinophils # (test code = Eosinophils 0.1 <=0.5 #) [facility] CenterOvgvrkdBTAJEZJSBR3509-10-61 10:08:00 Test Item Value Reference Range Interpretation Comments Hct (test code = Hct) 22.0 36.0-48.0 [facility] CenterGewakynJCOKOODTTV3514-43-08 10:08:00 Test Item Value Reference Range Interpretation Comments MCV (test code = MCV) 95.1 80.0-98.0 [facility] CenterZjibsywOPBYSAVFNK3450-14-60 10:08:00 Test Item Value Reference Range Interpretation Comments MCH (test code = MCH) 32.7 pg 27.0-31.0 [facility] CenterQfihsetYMCPHIVIFR5152-02-97 10:08:00 Test Item Value Reference Range Interpretation Comments MCHC (test code = MCHC) 34.4 32.0-36.0 [facility] CenterEbmlxxsOMQNLQMVFQ4384-43-70 10:08:00 Test Item Value Reference Range Interpretation Comments RDW (test code = RDW) 17.2 11.5-14.5 [facility] CenterBzgrybdPTAHTPLDOL1279-91-14 10:08:00 Test Item Value Reference Range Interpretation Comments Platelet (test code = Platelet) 227 133-450 [facility] CenterZtobwswNBGPFMNKTG8582-66-28 10:08:00 Test Item Value Reference Range Interpretation Comments MPV (test code = MPV) 8.5 7.4-10.4 [facility] CenterLgbbafbTRXDVYWQGZ0743-65-12 10:08:00 Test Item Value Reference Range Interpretation Comments Segs (test code = Segs) 59.9 45.0-75.0 [facility] CenterKbhpumqJDEHMOFBDT3691-47-56 10:08:00 Test Item Value Reference Range Interpretation Comments Lymphocytes (test code = Lymphocytes) 22.5 20.0-40.0 [facility] CenterEbzhunjKWQLVQUGOX2732-66-82 10:08:00 Test Item Value Reference Range Interpretation Comments Monocytes (test code = Monocytes) 11.0 2.0-12.0 [place] 752033-10-16 10:08:00 Test Item Value Reference Range Interpretation Comments Eosinophils (test code = Eosinophils) 5.3 <=4.0 [facility] CenterLbkdlntMFHQQALFZT7284-47-13 10:08:00 Test Item Value Reference Range Interpretation Comments Basophils (test code = Basophils) 1.3 <=1.0 [facility] CenterReookzeLKFDRCMZMT6515-80-76 10:08:00 Test Item Value Reference Range Interpretation Comments Neutrophils # (test code = Neutrophils 1.3 1.5-8.1 #) [facility] CenterHfbaekrNQABBBKCMU4734-64-53 10:08:00 Test Item Value Reference Range Interpretation Comments Lymphocytes # (test code = Lymphocytes 0.5 1.0-5.5 #) [facility] CenterYvcwuodTZFKZEFZXG9895-15-44 10:08:00 Test Item Value Reference Range Interpretation Comments Monocytes # (test code = Monocytes #) 0.2 <=0.8 [facility] CenterStpqpclGXCSMCRIWZ9550-60-61 10:08:00 Test Item Value Reference Range Interpretation Comments Eosinophils # (test code = Eosinophils 0.1 <=0.5 #) [facility]CbdikijXRPRLNUCE1317-73-25 10:08:00 Test Item Value Reference Range Interpretation Comments Glucose Lvl (test code = Glucose Lvl) 77 70-99 [facility] HospitalQssyfanIUGZYMLFP8795-48-57 10:08:00 Test Item Value Reference Range Interpretation Comments BUN (test code = BUN) 4 7-22 [facility] HospitalLdrhflzHAPDEQGWT4813-70-94 10:08:00 Test Item Value Reference Range Interpretation Comments Creatinine Lvl (test code = Creatinine 0.91 0.50-1.40 Lvl) [facility] HospitalBapevzsGZPUQQUTK9574-82-98 10:08:00 Test Item Value Reference Range Interpretation Comments Sodium Lvl (test code = Sodium Lvl) 140 135-145 [facility] HospitalVfcsamyEXJLFTXZP5178-05-13 10:08:00 Test Item Value Reference Range Interpretation Comments Potassium Lvl (test code = Potassium 4.6 3.5-5.1 Lvl) [facility] HospitalAjdgficRNYWQDKGC1451-84-91 10:08:00 Test Item Value Reference Range Interpretation Comments Chloride Lvl (test code = Chloride Lvl) 112 95-109 [facility] HospitalYjdkyizYTYRATFHU6613-52-83 10:08:00 Test Item Value Reference Range Interpretation Comments CO2 (test code = CO2) 24 24-32 [facility] HospitalPxytvwsUCYBBZIRK1770-62-26 10:08:00 Test Item Value Reference Range Interpretation Comments Calcium Lvl (test code = Calcium Lvl) 8.0 8.5-10.5 [facility] HospitalJpkixkmJPMQPXTGD9463-49-03 10:08:00 Test Item Value Reference Range Interpretation Comments AGAP (test code = AGAP) 8.6 10.0-20.0 [facility] HospitalLfjxdymTYFITFJJI0811-75-85 10:08:00 Test Item Value Reference Range Interpretation Comments eGFR (test code = eGFR) 77 [facility] HospitalFifwlboJQRTGLDTY6587-00-33 10:08:00 Test Item Value Reference Range Interpretation Comments Phosphorus (test code = Phosphorus) 3.6 2.5-4.5 [facility] HospitalVxlbcdyNVIXJGOFF4535-30-45 10:08:00 Test Item Value Reference Range Interpretation Comments Magnesium Lvl (test code = Magnesium 1.6 1.8-2.4 Lvl) [facility] CenterVfzepsmPUBQEDNJJR9562-89-78 10:08:00 Test Item Value Reference Range Interpretation Comments WBC (test code = WBC) 2.2 3.7-10.4 [facility] CenterQgpkvlrDMUVTXPVIO0547-42-41 10:08:00 Test Item Value Reference Range Interpretation Comments RBC (test code = RBC) 2.31 4.20-5.40 [facility] CenterRtnbpoaFBUVSLEFJI6681-74-32 10:08:00 Test Item Value Reference Range Interpretation Comments Hgb (test code = Hgb) 7.6 12.0-16.0 [facility] CenterQbcmyjhYDSHRJTDTY4256-58-08 10:08:00 Test Item Value Reference Range Interpretation Comments Hct (test code = Hct) 22.0 36.0-48.0 [place] 752033-10-16 10:08:00 Test Item Value Reference Range Interpretation Comments MCV (test code = MCV) 95.1 80.0-98.0 [facility] CenterSilogvhMGZKVKTOVI2715-78-89 10:08:00 Test Item Value Reference Range Interpretation Comments MCH (test code = MCH) 32.7 pg 27.0-31.0 [facility] CenterGkpnrjrTBTIIDUYVC2295-18-36 10:08:00 Test Item Value Reference Range Interpretation Comments MCHC (test code = MCHC) 34.4 32.0-36.0 [facility] CenterDshcdqfGTFNDZPWEL6566-07-85 10:08:00 Test Item Value Reference Range Interpretation Comments RDW (test code = RDW) 17.2 11.5-14.5 [facility] CenterRqpndapGVFIKVMNEI3521-41-53 10:08:00 Test Item Value Reference Range Interpretation Comments Platelet (test code = Platelet) 227 133-450 [facility] CenterXrbpfcoBTRVEKXEBT2732-71-43 10:08:00 Test Item Value Reference Range Interpretation Comments MPV (test code = MPV) 8.5 7.4-10.4 [facility] CenterLalgpwvSDOWSZJGWG0470-14-61 10:08:00 Test Item Value Reference Range Interpretation Comments Segs (test code = Segs) 59.9 45.0-75.0 [facility] CenterWwlzrlmUQUAONISMO7668-15-27 10:08:00 Test Item Value Reference Range Interpretation Comments Lymphocytes (test code = Lymphocytes) 22.5 20.0-40.0 [facility] CenterBywntbnXKUZTAJXHV2259-45-30 10:08:00 Test Item Value Reference Range Interpretation Comments Monocytes (test code = Monocytes) 11.0 2.0-12.0 [facility] CenterIpvybrnSBEUKXQGXS9201-03-77 10:08:00 Test Item Value Reference Range Interpretation Comments Eosinophils (test code = Eosinophils) 5.3 <=4.0 [facility] CenterKqwxpxbYSFEPKHLKK5086-33-00 10:08:00 Test Item Value Reference Range Interpretation Comments Basophils (test code = Basophils) 1.3 <=1.0 [facility] CenterKlucybmPCSAEOGENU8933-39-45 10:08:00 Test Item Value Reference Range Interpretation Comments Neutrophils # (test code = Neutrophils 1.3 1.5-8.1 #) [facility] CenterMlvbfidCFCGLSYJIT0517-23-13 10:08:00 Test Item Value Reference Range Interpretation Comments Lymphocytes # (test code = Lymphocytes 0.5 1.0-5.5 #) [facility] CenterDwzototCEGPLKMJRQ2231-37-47 10:08:00 Test Item Value Reference Range Interpretation Comments Monocytes # (test code = Monocytes #) 0.2 <=0.8 [facility] CenterCsmqotrVSVXAYRKOU6490-39-24 10:08:00 Test Item Value Reference Range Interpretation Comments Eosinophils # (test code = Eosinophils 0.1 <=0.5 #) [facility] HospitalEbtmvrtLLNZQTGGE4590-50-07 10:08:00 Test Item Value Reference Range Interpretation Comments Glucose Lvl (test code = Glucose Lvl) 77 70-99 [facility] HospitalNbbmckoTEGOOMNBI3770-85-01 10:08:00 Test Item Value Reference Range Interpretation Comments BUN (test code = BUN) 4 7-22 [facility] HospitalBuwhmjdZTILSWNJY3326-75-24 10:08:00 Test Item Value Reference Range Interpretation Comments Creatinine Lvl (test code = Creatinine 0.91 0.50-1.40 Lvl) [facility] HospitalFlyfebfKBHKSYJVN7601-95-51 10:08:00 Test Item Value Reference Range Interpretation Comments Sodium Lvl (test code = Sodium Lvl) 140 135-145 [facility] HospitalZappqwsZJLCRLWED8489-47-89 10:08:00 Test Item Value Reference Range Interpretation Comments Potassium Lvl (test code = Potassium 4.6 3.5-5.1 Lvl) [facility] HospitalWbfrzojUIIIZTUYB4613-76-84 10:08:00 Test Item Value Reference Range Interpretation Comments Chloride Lvl (test code = Chloride Lvl) 112 95-109 [facility] HospitalWctnutmXVQVOPWXL6254-04-75 10:08:00 Test Item Value Reference Range Interpretation Comments CO2 (test code = CO2) 24 24-32 [facility] HospitalClzrvsfINPSBUIGV1915-81-54 10:08:00 Test Item Value Reference Range Interpretation Comments Calcium Lvl (test code = Calcium Lvl) 8.0 8.5-10.5 [facility] HospitalGhrtxacETOPDXCIW1535-53-89 10:08:00 Test Item Value Reference Range Interpretation Comments AGAP (test code = AGAP) 8.6 10.0-20.0 [facility] HospitalKjsilxpXPVIOVSSO4656-53-83 10:08:00 Test Item Value Reference Range Interpretation Comments eGFR (test code = eGFR) 77 [facility] HospitalCcltcfiRKBJXPPZD3879-71-96 10:08:00 Test Item Value Reference Range Interpretation Comments Phosphorus (test code = Phosphorus) 3.6 2.5-4.5 [facility] HospitalItbadqbDMLSCHEAC7511-37-05 10:08:00 Test Item Value Reference Range Interpretation Comments Magnesium Lvl (test code = Magnesium 1.6 1.8-2.4 Lvl) [facility]se[facility]xVOE[facility]ZZXZS4003[facility] 10:08:00 Test Item Value Reference Range Interpretation Comments WBC (test code = WBC) 2.2 3.7-10.4 [facility]HxffqsvITTXJFBDJL0200-05-71 10:08:00 Test Item Value Reference Range Interpretation Comments RBC (test code = RBC) 2.31 4.20-5.40 [facility] CenterWimpuyqZQZCRNNEWX7303-56-58 10:08:00 Test Item Value Reference Range Interpretation Comments Hgb (test code = Hgb) 7.6 12.0-16.0 [facility] XXPNRHS9941-18-50 18:46:00 Test Item Value Reference Range Interpretation Comments ARNOLD Gel Int (test Negative (07/09/23 1:46 code = ARNOLD Gel Int) PM) [facility] EHQCNMO9217-59-30 18:46:00 Test Item Value Reference Range Interpretation Comments C3 Int (test code = Negative (07/09/23 1:46 C3 Int) PM) [facility] MKGSIKS1932-84-14 18:46:00 Test Item Value Reference Range Interpretation Comments ARNOLD Gel Int (test Negative (07/09/23 1:46 code = ARNOLD Gel Int) PM) [facility] SNDZAGR0131-15-85 18:46:00 Test Item Value Reference Range Interpretation Comments C3 Int (test code = Negative (07/09/23 1:46 C3 Int) PM) [facility]2023-10-14 18:46:00 Test Item Value Reference Range Interpretation Comments ARNOLD Gel Int (test Negative (07/09/23 1:46 code = ARNOLD Gel Int) PM) [facility]2023-10-14 18:46:00 Test Item Value Reference Range Interpretation Comments C3 Int (test code = Negative (07/09/23 1:46 C3 Int) PM) [facility] HospitalGavdakvJRHNEECAD2908-88-07 09:32:00 Test Item Value Reference Range Interpretation Comments Total Protein (test code = Total 3.7 6.4-8.4 Protein) [facility] HospitalHcqmyamCLGHNBOPG6201-32-35 09:32:00 Test Item Value Reference Range Interpretation Comments Albumin Lvl (test code = Albumin Lvl) 1.6 3.5-5.0 [facility] HospitalAhygsisFKNYNFGCY2709-24-59 09:32:00 Test Item Value Reference Range Interpretation Comments ALT (test code = ALT) 24 <=65 [facility] HospitalSpotvwhTYIAFUDVN3794-92-51 09:32:00 Test Item Value Reference Range Interpretation Comments AST (test code = AST) 19 <=37 [facility] HospitalNzjdzyyUENYKTSID6035-91-73 09:32:00 Test Item Value Reference Range Interpretation Comments Alk Phos (test code = Alk Phos) 131 39-136 [facility] HospitalJosqscmGFOFEJEAX0662-44-14 09:32:00 Test Item Value Reference Range Interpretation Comments Bili Total (test code = Bili Total) 0.7 0.2-1.3 [facility] HospitalOgmrtvhSRVPDNNPZ6597-62-87 09:32:00 Test Item Value Reference Range Interpretation Comments B/C Ratio (test code = B/C Ratio) 5 1 6-25 [facility] HospitalVraadlhRBUJWQEOG5876-42-29 09:32:00 Test Item Value Reference Range Interpretation Comments Globulin (test code = Globulin) 2.1 2.7-4.2 [facility] HospitalVvbgpeuXGYYZZZFW3333-05-44 09:32:00 Test Item Value Reference Range Interpretation Comments A/G Ratio (test code = A/G Ratio) 0.8 1 0.7-1.6 [facility] CenterEttefkfATRHUECOQI6585-17-95 09:32:00 Test Item Value Reference Range Interpretation Comments Basophils # (test code = Basophils #) 0.0 <=0.2 [place] 752033-10-14 09:32:00 Test Item Value Reference Range Interpretation Comments Bands (test code = Bands) 2.0 <=11.0 [facility] CenterXgwzqxaGPDYZNYYDK7313-92-48 09:32:00 Test Item Value Reference Range Interpretation Comments Atypical Lymphs (test code = Atypical 0.0 Lymphs) [place] 752033-10-14 09:32:00 Test Item Value Reference Range Interpretation Comments RBC Morph (test code = Normal (07/09/23 4:32 RBC Morph) AM) [place] 752033-10-14 09:32:00 Test Item Value Reference Range Interpretation Comments Tot Cell Ct (test code = Tot Cell Ct) 100 1 [facility] CenterXzfbwwwFIIHAPBNYH4552-61-76 09:32:00 Test Item Value Reference Range Interpretation Comments Large Plt (test code = Large Plt) few [facility] HospitalTzstknkSNZURNTRH7288-07-69 09:32:00 Test Item Value Reference Range Interpretation Comments Total Protein (test code = Total 3.7 6.4-8.4 Protein) [facility] HospitalQzgcuylJWPUOGFXU0457-34-69 09:32:00 Test Item Value Reference Range Interpretation Comments Albumin Lvl (test code = Albumin Lvl) 1.6 3.5-5.0 [place] 394853-10-14 09:32:00 Test Item Value Reference Range Interpretation Comments ALT (test code = ALT) 24 <=65 [facility] HospitalSiolkssHBYEVVHXL0324-57-07 09:32:00 Test Item Value Reference Range Interpretation Comments AST (test code = AST) 19 <=37 [facility] HospitalSqbvvzoYVVDKZYMV3428-75-37 09:32:00 Test Item Value Reference Range Interpretation Comments Alk Phos (test code = Alk Phos) 131 39-136 [facility] HospitalZnkmkzaUCIVTQATV5029-39-62 09:32:00 Test Item Value Reference Range Interpretation Comments Bili Total (test code = Bili Total) 0.7 0.2-1.3 [facility] HospitalQwkmedgIUTWPTKLL6739-44-43 09:32:00 Test Item Value Reference Range Interpretation Comments B/C Ratio (test code = B/C Ratio) 5 1 6-25 [facility] HospitalYuwmnpjNRRFBKANI8495-50-55 09:32:00 Test Item Value Reference Range Interpretation Comments Globulin (test code = Globulin) 2.1 2.7-4.2 [facility] HospitalEwnlsltBFZCYQQGQ5347-68-85 09:32:00 Test Item Value Reference Range Interpretation Comments A/G Ratio (test code = A/G Ratio) 0.8 1 0.7-1.6 [facility] CenterHxshazjNEYAQJJGEG1293-28-34 09:32:00 Test Item Value Reference Range Interpretation Comments Basophils # (test code = Basophils #) 0.0 <=0.2 [facility] CenterGtqksgkUUALUHDPWB2214-48-57 09:32:00 Test Item Value Reference Range Interpretation Comments Bands (test code = Bands) 2.0 <=11.0 [facility] CenterOaltupbNTQGFBTMZD3481-73-95 09:32:00 Test Item Value Reference Range Interpretation Comments Atypical Lymphs (test code = Atypical 0.0 Lymphs) [facility] CenterOpfwkuoFCCPDGXJNG6785-49-56 09:32:00 Test Item Value Reference Range Interpretation Comments RBC Morph (test code = Normal (07/09/23 4:32 RBC Morph) AM) [facility] CenterAmeyupxHMYHNMBZDV9588-66-14 09:32:00 Test Item Value Reference Range Interpretation Comments Tot Cell Ct (test code = Tot Cell Ct) 100 1 [facility] CenterPllbbbsFNOGZLDMDG6188-32-79 09:32:00 Test Item Value Reference Range Interpretation Comments Large Plt (test code = Large Plt) few [facility] HospitalBjkevrlSXCTRRMXT5163-49-82 09:32:00 Test Item Value Reference Range Interpretation Comments Total Protein (test code = Total 3.7 6.4-8.4 Protein) [facility] HospitalKqpdadzEBBYNMISH3925-25-63 09:32:00 Test Item Value Reference Range Interpretation Comments Albumin Lvl (test code = Albumin Lvl) 1.6 3.5-5.0 [facility] HospitalMapeuasPCBTGXQEV4659-55-16 09:32:00 Test Item Value Reference Range Interpretation Comments ALT (test code = ALT) 24 <=65 [facility] HospitalJetrzqeCXIWTDPJU2450-91-70 09:32:00 Test Item Value Reference Range Interpretation Comments AST (test code = AST) 19 <=37 [facility] HospitalCesfsksBWKUGEJLM0375-28-55 09:32:00 Test Item Value Reference Range Interpretation Comments Alk Phos (test code = Alk Phos) 131 39-136 [facility] HospitalArpqhafDDUTWAXRL6575-94-64 09:32:00 Test Item Value Reference Range Interpretation Comments Bili Total (test code = Bili Total) 0.7 0.2-1.3 [place] [address]-10-14 09:32:00 Test Item Value Reference Range Interpretation Comments B/C Ratio (test code = B/C Ratio) 5 1 6-25 [facility] HospitalVlmadcnICWODUVEE8581-31-21 09:32:00 Test Item Value Reference Range Interpretation Comments Globulin (test code = Globulin) 2.1 2.7-4.2 [facility] HospitalBdrckwqFEYTNPDOY1327-87-29 09:32:00 Test Item Value Reference Range Interpretation Comments A/G Ratio (test code = A/G Ratio) 0.8 1 0.7-1.6 [place] 752033-10-14 09:32:00 Test Item Value Reference Range Interpretation Comments Basophils # (test code = Basophils #) 0.0 <=0.2 [place] 752033-10-14 09:32:00 Test Item Value Reference Range Interpretation Comments Bands (test code = Bands) 2.0 <=11.0 [place] 752033-10-14 09:32:00 Test Item Value Reference Range Interpretation Comments Atypical Lymphs (test code = Atypical 0.0 Lymphs) [facility] CenterTfisyvoMLICTFDYEF6181-29-68 09:32:00 Test Item Value Reference Range Interpretation Comments RBC Morph (test code = Normal (07/09/23 4:32 RBC Morph) AM) [place] 752033-10-14 09:32:00 Test Item Value Reference Range Interpretation Comments Tot Cell Ct (test code = Tot Cell Ct) 100 1 [facility] CenterSsdnefzJBRGBLPLTR5753-61-68 09:32:00 Test Item Value Reference Range Interpretation Comments Large Plt (test code = Large Plt) few [place] 752033-10-13 08:35:00 Test Item Value Reference Range Interpretation Comments PB Smear Path (test Leukopenia with absolute code = PB Smear lymphopenia. Macrocytic Path) anemia. No increase in blasts or schistocytes. Scattered acanthocytes and elliptocytes. Peripheral element morphology is unremarkable. [place] 916593-10-13 08:35:00 Test Item Value Reference Range Interpretation Comments Haptoglobin (test code = <8 mg/dL 16-200 Haptoglobin) [place] 752033-10-13 08:35:00 Test Item Value Reference Range Interpretation Comments PB Smear Path (test Leukopenia with absolute code = PB Smear lymphopenia. Macrocytic Path) anemia. No increase in blasts or schistocytes. Scattered acanthocytes and elliptocytes. Peripheral element morphology is unremarkable. [facility]AqfialaRHBOYOVACY2866-74-72 08:35:00 Test Item Value Reference Range Interpretation Comments Haptoglobin (test code = <8 mg/dL 16-200 Haptoglobin) [place] 752033-10-13 08:35:00 Test Item Value Reference Range Interpretation Comments PB Smear Path (test Leukopenia with absolute code = PB Smear lymphopenia. Macrocytic Path) anemia. No increase in blasts or schistocytes. Scattered acanthocytes and elliptocytes. Peripheral element morphology is unremarkable. [facility]JwxtpvkSVLMVCPVLN4957-17-94 08:35:00 Test Item Value Reference Range Interpretation Comments Haptoglobin (test code = <8 mg/dL 16-200 Haptoglobin) [facility] HospitalUcuwfizAWMDYSAAG0036-65-27 21:27:00 Test Item Value Reference Range Interpretation Comments Ferritin Lvl (test code = Ferritin Lvl) 1347 5-204 [facility] HospitalYsnzotiBLFNZIUBB6613-64-67 21:27:00 Test Item Value Reference Range Interpretation Comments Iron (test code = Iron) 89 40-190 [place] 394853-10-12 21:27:00 Test Item Value Reference Range Interpretation Comments TIBC (test code = TIBC) 99 250-450 [facility] HospitalHjovqklCOLZMHVWL5778-33-20 21:27:00 Test Item Value Reference Range Interpretation Comments % Satur Fe (test code = % Satur Fe) 90 16-45 [facility] HospitalCwqbkfhVBGOCCYJD6908-65-43 21:27:00 Test Item Value Reference Range Interpretation Comments Folate Lvl (test code = Folate Lvl) 11.8 [facility] HospitalSdaxibePUXIRREFO6113-89-31 21:27:00 Test Item Value Reference Range Interpretation Comments Vitamin B12 Lvl (test code = Vitamin 1730 247-5518 B12 Lvl) [facility] HospitalZbrwokmUDCCKYULD4639-36-44 21:27:00 Test Item Value Reference Range Interpretation Comments LDH (test code = LDH) 329 98-192 [facility] CenterOlikvewPVZUFPILOB7358-78-12 21:27:00 Test Item Value Reference Range Interpretation Comments Retic Perf (test code = Yes (07/07/23 4:27 PM) Retic Perf) [facility] CenterAclsvntYQOKKVPWVP1731-62-18 21:27:00 Test Item Value Reference Range Interpretation Comments Retic Auto (test code = Retic Auto) 3.2 0.5-1.5 [facility] HospitalWkrurpeAAEPIROKV7864-86-81 21:27:00 Test Item Value Reference Range Interpretation Comments Ferritin Lvl (test code = Ferritin Lvl) 1347 5-204 [facility] HospitalRtfewzmYPGFRDQJG6172-94-16 21:27:00 Test Item Value Reference Range Interpretation Comments Iron (test code = Iron) 89 40-190 [facility] HospitalIulhvlxYECRGHBCF8678-42-81 21:27:00 Test Item Value Reference Range Interpretation Comments TIBC (test code = TIBC) 99 250-450 [facility] HospitalEarbjzkHLFJXGLYU5988-39-60 21:27:00 Test Item Value Reference Range Interpretation Comments % Satur Fe (test code = % Satur Fe) 90 16-45 [facility] HospitalUzhvlysNSCSNSKHC8855-12-27 21:27:00 Test Item Value Reference Range Interpretation Comments Folate Lvl (test code = Folate Lvl) 11.8 [facility] HospitalLlbrpktQRLRCITXA8260-81-00 21:27:00 Test Item Value Reference Range Interpretation Comments Vitamin B12 Lvl (test code = Vitamin [phone] B12 Lvl) [facility] HospitalWecivjtZXLNQTXDS2881-06-50 21:27:00 Test Item Value Reference Range Interpretation Comments LDH (test code = LDH) 329 98-192 [facility] CenterWauufueAHMEASMWMN1279-87-07 21:27:00 Test Item Value Reference Range Interpretation Comments Retic Perf (test code = Yes (07/07/23 4:27 PM) Retic Perf) [facility] CenterWfptxreHTPDJCWZZW2129-98-02 21:27:00 Test Item Value Reference Range Interpretation Comments Retic Auto (test code = Retic Auto) 3.2 0.5-1.5 [facility] HospitalOzealkpDYQSMRISY8085-15-67 21:27:00 Test Item Value Reference Range Interpretation Comments Ferritin Lvl (test code = Ferritin Lvl) 1347 5-204 [facility] HospitalVzhaamxFDJOECGFW3666-41-57 21:27:00 Test Item Value Reference Range Interpretation Comments Iron (test code = Iron) 89 40-190 [facility] HospitalNkkkbtxSXJRQZAEK0362-64-01 21:27:00 Test Item Value Reference Range Interpretation Comments TIBC (test code = TIBC) 99 250-450 [facility] HospitalSuewfgyQDQWKRUGO9431-54-71 21:27:00 Test Item Value Reference Range Interpretation Comments % Satur Fe (test code = % Satur Fe) 90 16-45 [facility] HospitalNhrmxuxQCZYDDVFB3482-03-33 21:27:00 Test Item Value Reference Range Interpretation Comments Folate Lvl (test code = Folate Lvl) 11.8 [facility] HospitalRclvemqBMQSNHSRC5450-18-07 21:27:00 Test Item Value Reference Range Interpretation Comments Vitamin B12 Lvl (test code = Vitamin [phone] B12 Lvl) [facility] HospitalAbpcirlGIVNEVLLQ9675-99-42 21:27:00 Test Item Value Reference Range Interpretation Comments LDH (test code = LDH) 329 98-192 [facility] CenterErgdlxuFYONYXRIAC1620-80-96 21:27:00 Test Item Value Reference Range Interpretation Comments Retic Perf (test code = Yes (07/07/23 4:27 PM) Retic Perf) [facility] CenterYircqyuZJYEYBTIWI0826-83-62 21:27:00 Test Item Value Reference Range Interpretation Comments Retic Auto (test code = Retic Auto) 3.2 0.5-1.5 [facility] HospitalUnwbxgsYSEQNLEBI3809-02-03 10:46:00 Test Item Value Reference Range Interpretation Comments Trig (test code = Trig) 100 [facility]PevuaerKIBIWTGQQQ5486-42-32 10:46:00 Test Item Value Reference Range Interpretation Comments Prealbumin (test code = Prealbumin) 7.6 18.0-45.0 [facility] HospitalDlxhnzjKEXWKFDBJ1057-93-99 10:46:00 Test Item Value Reference Range Interpretation Comments Trig (test code = Trig) 100 [facility] RenaissanceKcqlivwQBQNCWRUOH0507-89-70 10:46:00 Test Item Value Reference Range Interpretation Comments Prealbumin (test code = Prealbumin) 7.6 18.0-45.0 [facility] HospitalVpxlaxiBBPFGNSCQ0730-44-55 10:46:00 Test Item Value Reference Range Interpretation Comments Trig (test code = Trig) 100 [facility] RenaissanceAqfbrmtNCECYDYAVL4442-15-24 10:46:00 Test Item Value Reference Range Interpretation Comments Prealbumin (test code = Prealbumin) 7.6 18.0-45.0 [facility] [id number] 13:12:00 Test Item Value Reference Range Interpretation Comments ABO/Rh (test code = ABO/Rh) O POS [facility] [id number] 13:12:00 Test Item Value Reference Range Interpretation Comments Antibody Scrn (test Negative (07/06/23 code = Antibody Scrn) 8:12 AM) [facility] [id number] 13:12:00 Test Item Value Reference Range Interpretation Comments ABO/Rh (test code = ABO/Rh) O POS [facility] [id number] 13:12:00 Test Item Value Reference Range Interpretation Comments Antibody Scrn (test Negative (07/06/23 code = Antibody Scrn) 8:12 AM) [facility] [id number] 13:12:00 Test Item Value Reference Range Interpretation Comments ABO/Rh (test code = ABO/Rh) O POS [facility] [id number] 13:12:00 Test Item Value Reference Range Interpretation Comments Antibody Scrn (test Negative (07/06/23 code = Antibody Scrn) 8:12 AM) [facility] [id number] 12:57:00 Test Item Value Reference Range Interpretation Comments RBC product (test code Product available = RBC product) 3(07/06/23 7:57 AM) [facility] [id number] 12:57:00 Test Item Value Reference Range Interpretation Comments RBC product (test code Product available = RBC product) 3(07/06/23 7:57 AM) [facility] BANK [id number] 12:57:00 Test Item Value Reference Range Interpretation Comments RBC product (test code Product available = RBC product) 3(07/06/23 7:57 AM) [place] [id number] 07:33:18 Test Item Value Reference Range Interpretation Comments RADRPT (test code PROCEDURE INFORMATION: = RADRPT) Exam: XR Abdomen Exam date and time: 07/02/2023 2:10 AM Age: 47 years old Clinical indication: Abdominal pain; Additional info: /abdominal pain TECHNIQUE: Imaging protocol: Radiologic exam of the abdomen. Views: Frontal supine view of the abdomen. 1 View. COMPARISON: ABDOMEN/PELVIS WO IV CONTRAST CT 05/01/2023 10:01 PM FINDINGS: Gastrointestinal tract: Air-filled bowel in the right abdomen measures 2.8 cm. No significant colonic gas is noted. Bones/joints: Unremarkable. Soft tissues: No abnormal radiopaque densities. IMPRESSION: Distended air-filled small bowel in right abdomen may represent ileus or enteritis.Michel Pearson MD On 07/02/2023 02:31:55; [id number] [place] [id number] 07:33:18 Test Item Value Reference Range Interpretation Comments RADRPT (test code PROCEDURE INFORMATION: = RADRPT) Exam: XR Abdomen Exam date and time: 07/02/2023 2:10 AM Age: 47 years old Clinical indication: Abdominal pain; Additional info: /abdominal pain TECHNIQUE: Imaging protocol: Radiologic exam of the abdomen. Views: Frontal supine view of the abdomen. 1 View. COMPARISON: ABDOMEN/PELVIS WO IV CONTRAST CT 05/01/2023 10:01 PM FINDINGS: Gastrointestinal tract: Air-filled bowel in the right abdomen measures 2.8 cm. No significant colonic gas is noted. Bones/joints: Unremarkable. Soft tissues: No abnormal radiopaque densities. IMPRESSION: Distended air-filled small bowel in right abdomen may represent ileus or enteritis.Michel Pearson MD On 07/02/2023 02:31:55; [id number] [facility]woodPzaxkobBUCPTE6472-44-60 07:33:18 Test Item Value Reference Range Interpretation Comments RADRPT (test code PROCEDURE INFORMATION: = RADRPT) Exam: XR Abdomen Exam date and time: 07/02/2023 2:10 AM Age: 47 years old Clinical indication: Abdominal pain; Additional info: /abdominal pain TECHNIQUE: Imaging protocol: Radiologic exam of the abdomen. Views: Frontal supine view of the abdomen. 1 View. COMPARISON: ABDOMEN/PELVIS WO IV CONTRAST CT 05/01/2023 10:01 PM FINDINGS: Gastrointestinal tract: Air-filled bowel in the right abdomen measures 2.8 cm. No significant colonic gas is noted. Bones/joints: Unremarkable. Soft tissues: No abnormal radiopaque densities. IMPRESSION: Distended air-filled small bowel in right abdomen may represent ileus or enteritis.Michel Pearson MD On 07/02/2023 02:31:55; [id number] [facility]woodSzbmocdPZCGTS4782-82-14 21:10:28 Test Item Value Reference Range Interpretation Comments RADRPT (test code = PROCEDURE INFORMATION: RADRPT) Exam: XR Chest Exam date and time: 07/01/2023 3:26 PM Age: 47 years old Clinical indication: /sob, wheezing, please evaluate TECHNIQUE: Imaging protocol: Radiologic exam of the chest. Views: 1 view. COMPARISON: CHEST 1V FOR PLACEMENT DX NO 06/23/2023 1:55 PM FINDINGS: Tubes, catheters and devices: Right-sided PICC line noted in the mid SVC region. Lungs: Some right midlung likely subsegmental atelectasis noted. There is mild prominence of the pulmonary vascular markings. No focal airspace opacities appreciated. Pleural spaces: New small bilateral pleural effusions noted. Heart/Mediastinum: No acute pathology appreciated. Bones/joints: No displaced fracture appreciated. IMPRESSION: Mild pulmonary vascular congestion. Please correlate. Follow up recommended. Niurka Valdez MD On 07/01/2023 16:09:43; [id number] [facility]woodOmdriqsUOMRJO5907-17-78 21:10:28 Test Item Value Reference Range Interpretation Comments RADRPT (test code = PROCEDURE INFORMATION: RADRPT) Exam: XR Chest Exam date and time: 07/01/2023 3:26 PM Age: 47 years old Clinical indication: /sob, wheezing, please evaluate TECHNIQUE: Imaging protocol: Radiologic exam of the chest. Views: 1 view. COMPARISON: CHEST 1V FOR PLACEMENT DX NO 06/23/2023 1:55 PM FINDINGS: Tubes, catheters and devices: Right-sided PICC line noted in the mid SVC region. Lungs: Some right midlung likely subsegmental atelectasis noted. There is mild prominence of the pulmonary vascular markings. No focal airspace opacities appreciated. Pleural spaces: New small bilateral pleural effusions noted. Heart/Mediastinum: No acute pathology appreciated. Bones/joints: No displaced fracture appreciated. IMPRESSION: Mild pulmonary vascular congestion. Please correlate. Follow up recommended. Niurka Valdez MD On 07/01/2023 16:09:43; [id number] [facility]hamJkmucxhZJTGLL0014-64-51 21:10:28 Test Item Value Reference Range Interpretation Comments RADRPT (test code = PROCEDURE INFORMATION: RADRPT) Exam: XR Chest Exam date and time: 07/01/2023 3:26 PM Age: 47 years old Clinical indication: /sob, wheezing, please evaluate TECHNIQUE: Imaging protocol: Radiologic exam of the chest. Views: 1 view. COMPARISON: CHEST 1V FOR PLACEMENT DX NO 06/23/2023 1:55 PM FINDINGS: Tubes, catheters and devices: Right-sided PICC line noted in the mid SVC region. Lungs: Some right midlung likely subsegmental atelectasis noted. There is mild prominence of the pulmonary vascular markings. No focal airspace opacities appreciated. Pleural spaces: New small bilateral pleural effusions noted. Heart/Mediastinum: No acute pathology appreciated. Bones/joints: No displaced fracture appreciated. IMPRESSION: Mild pulmonary vascular congestion. Please correlate. Follow up recommended. Niurka Valdez MD On 07/01/2023 16:09:43; [id number] [facility]VnfsnskTDRSSZAWM1012-06-62 22:40:00 Test Item Value Reference Range Interpretation Comments Bili Direct (test code = Bili Direct) 0.3 <=0.3 [facility] HospitalRzsesadBXNZTLAHY1904-63-38 22:40:00 Test Item Value Reference Range Interpretation Comments Bili Indirect (test code = Bili 0.3 <=1.0 Indirect) [facility] HospitalEeizopqKWEQAWXVF8005-86-21 22:40:00 Test Item Value Reference Range Interpretation Comments Bili Direct (test code = Bili Direct) 0.3 <=0.3 [facility] HospitalWsienmrRPUOODXWX3324-37-96 22:40:00 Test Item Value Reference Range Interpretation Comments Bili Indirect (test code = Bili 0.3 <=1.0 Indirect) [facility] HospitalJfjipywCDRKBUTJX2842-12-43 22:40:00 Test Item Value Reference Range Interpretation Comments Bili Direct (test code = Bili Direct) 0.3 <=0.3 [facility] HospitalSroxtlgSFIUTMKFG0453-23-74 22:40:00 Test Item Value Reference Range Interpretation Comments Bili Indirect (test code = Bili 0.3 <=1.0 Indirect) [facility] CenterTnqjwvlKSYSVTQOBL1439-34-37 08:09:00 Test Item Value Reference Range Interpretation Comments PT (test code = PT) 18.9 s 12.0-14.7 [facility] CenterLjhwtsiWYBXRRMJXL5864-34-69 08:09:00 Test Item Value Reference Range Interpretation Comments INR (test code = INR) 1.58 1 0.85-1.17 [facility] CenterMrhzywvDIRPHYSTUM0623-72-21 08:09:00 Test Item Value Reference Range Interpretation Comments PT (test code = PT) 18.9 s 12.0-14.7 [facility] CenterWsycrtuPHCESQIRWE5130-61-44 08:09:00 Test Item Value Reference Range Interpretation Comments INR (test code = INR) 1.58 1 0.85-1.17 [facility] CenterBuanhqfGYJLQZMSKT8045-98-18 08:09:00 Test Item Value Reference Range Interpretation Comments PT (test code = PT) 18.9 s 12.0-14.7 [facility] CenterUajikdeJGCBEANRGB7816-46-93 08:09:00 Test Item Value Reference Range Interpretation Comments INR (test code = INR) 1.58 1 0.85-1.17 [facility] HospitalNnozvjpJTEBKGOCL9178-95-84 08:22:00 Test Item Value Reference Range Interpretation Comments Ca Ion WB (test code = Ca Ion WB) 1.25 1.05-1.25 [facility] HospitalMnleffxOFZQSWAEC1401-71-38 08:22:00 Test Item Value Reference Range Interpretation Comments Ca Ion at pH 7.4 WB (test code = Ca Ion 1.23 1.05-1.25 at pH 7.4 WB) [facility] HospitalYqbzzmrZDHMPFDKN8299-10-46 08:22:00 Test Item Value Reference Range Interpretation Comments Ca Ion WB (test code = Ca Ion WB) 1.25 1.05-1.25 [facility] HospitalNvhmnqxJNOUIFJAO5577-62-20 08:22:00 Test Item Value Reference Range Interpretation Comments Ca Ion at pH 7.4 WB (test code = Ca Ion 1.23 1.05-1.25 at pH 7.4 WB) [facility] HospitalWnbjgjsJUJUJBRCH5102-25-86 08:22:00 Test Item Value Reference Range Interpretation Comments Ca Ion WB (test code = Ca Ion WB) 1.25 1.05-1.25 [facility]BynvjbcFSBYXZCTN5599-94-29 08:22:00 Test Item Value Reference Range Interpretation Comments Ca Ion at pH 7.4 WB (test code = Ca Ion 1.23 1.05-1.25 at pH 7.4 WB) [facility] CenterLgmysnwCMZBCMFWWL9749-92-57 09:17:00 Test Item Value Reference Range Interpretation Comments PTT (test code = PTT) 35.7 s 22.9-35.8 [facility] 09:17:00 Test Item Value Reference Range Interpretation Comments PTT (test code = PTT) 35.7 s 22.9-35.8 [facility]VbquqxvFPFQHXPMHU6172-31-62 09:17:00 Test Item Value Reference Range Interpretation Comments PTT (test code = PTT) 35.7 s 22.9-35.8 [facility]woodWmtlamqKTBLFL3325-87-41 19:59:16 Test Item Value Reference Range Interpretation Comments RADRPT (test code PROCEDURE INFORMATION: Exam: = RADRPT) XR Chest Exam date and time: 06/23/2023 1:55 PM Age: 47 years old Clinical indication: Device placement; Additional info: Catheter placement/chest 1 view for line placement TECHNIQUE: Imaging protocol: Radiologic exam of the chest. Views: 1 view. COMPARISON: CHEST 1VIEW DX 06/17/2023 9:43 AM FINDINGS: Tubes, catheters and devices: Right PICC tip at the level of central SVC. Lungs: Lung volumes are low. There are hypoventilatory changes bilateral. There are indistinct bandlike opacities in the right mid and lower lung zone. There are indistinct opacities in the left lung base partially obscuring the hemidiaphragm. Pleural spaces: There is no pneumothorax. Left costophrenic angle is obscured. Heart/Mediastinum: The cardiomediastinal silhouette is normal for projection and low lung volumes. Bones/joints: No acute skeletal abnormality. IMPRESSION: 1. Right PICC tip at the level of central SVC. 2. Decreased lung volumes with bilateral hypoventilatory changes. Subsegmental atelectasis on the right. Atelectasis versus airspace disease left base. Small left pleural effusion is not excluded. Bang Motta MD On 06/23/2023 14:58:09; [id number] [facility]hamSzhdyoxRNKLOB0444-33-12 19:59:16 Test Item Value Reference Range Interpretation Comments RADRPT (test code PROCEDURE INFORMATION: Exam: = RADRPT) XR Chest Exam date and time: 06/23/2023 1:55 PM Age: 47 years old Clinical indication: Device placement; Additional info: Catheter placement/chest 1 view for line placement TECHNIQUE: Imaging protocol: Radiologic exam of the chest. Views: 1 view. COMPARISON: CHEST 1VIEW DX 06/17/2023 9:43 AM FINDINGS: Tubes, catheters and devices: Right PICC tip at the level of central SVC. Lungs: Lung volumes are low. There are hypoventilatory changes bilateral. There are indistinct bandlike opacities in the right mid and lower lung zone. There are indistinct opacities in the left lung base partially obscuring the hemidiaphragm. Pleural spaces: There is no pneumothorax. Left costophrenic angle is obscured. Heart/Mediastinum: The cardiomediastinal silhouette is normal for projection and low lung volumes. Bones/joints: No acute skeletal abnormality. IMPRESSION: 1. Right PICC tip at the level of central SVC. 2. Decreased lung volumes with bilateral hypoventilatory changes. Subsegmental atelectasis on the right. Atelectasis versus airspace disease left base. Small left pleural effusion is not excluded. Bang Motta MD On 06/23/2023 14:58:09; [id number] [facility]hamMxfpkeqOHIXVD4486-84-59 19:59:16 Test Item Value Reference Range Interpretation Comments RADRPT (test code PROCEDURE INFORMATION: Exam: = RADRPT) XR Chest Exam date and time: 06/23/2023 1:55 PM Age: 47 years old Clinical indication: Device placement; Additional info: Catheter placement/chest 1 view for line placement TECHNIQUE: Imaging protocol: Radiologic exam of the chest. Views: 1 view. COMPARISON: CHEST 1VIEW DX 06/17/2023 9:43 AM FINDINGS: Tubes, catheters and devices: Right PICC tip at the level of central SVC. Lungs: Lung volumes are low. There are hypoventilatory changes bilateral. There are indistinct bandlike opacities in the right mid and lower lung zone. There are indistinct opacities in the left lung base partially obscuring the hemidiaphragm. Pleural spaces: There is no pneumothorax. Left costophrenic angle is obscured. Heart/Mediastinum: The cardiomediastinal silhouette is normal for projection and low lung volumes. Bones/joints: No acute skeletal abnormality. IMPRESSION: 1. Right PICC tip at the level of central SVC. 2. Decreased lung volumes with bilateral hypoventilatory changes. Subsegmental atelectasis on the right. Atelectasis versus airspace disease left base. Small left pleural effusion is not excluded. Bang Motta MD On 06/23/2023 14:58:09; [id number] [facility] HospitalGxxbmwpUMQAWZRAC8248-42-20 15:20:00 Test Item Value Reference Range Interpretation Comments Lactic Acid Lvl (test code = Lactic 1.5 0.5-2.2 Acid Lvl) [facility] HospitalFssghlkVUBOECRHQ6960-94-34 15:20:00 Test Item Value Reference Range Interpretation Comments Lactic Acid Lvl (test code = Lactic 1.5 0.5-2.2 Acid Lvl) [facility] HospitalSzwiemwZQGBJIRPU9587-93-84 15:20:00 Test Item Value Reference Range Interpretation Comments Lactic Acid Lvl (test code = Lactic 1.5 0.5-2.2 Acid Lvl) [facility]2023-09-24 14:54:00 Test Item Value Reference Range Interpretation Comments C difficile DNA (test Negative (06/19/23 9:54 code = C difficile DNA) AM) [facility]2023-09-24 14:54:00 Test Item Value Reference Range Interpretation Comments Reason for Order (test Bloody/mucoid diarrhea code = Reason for (06/19/23 9:54 AM) Order) [facility]2023-09-24 14:54:00 Test Item Value Reference Range Interpretation Comments Campylobacter grp (test Not Detected code = Campylobacter grp) (06/19/23 9:54 AM) [facility]2023-09-24 14:54:00 Test Item Value Reference Range Interpretation Comments Salmonella spp. (test Not Detected (06/19/23 code = Salmonella spp.) 9:54 AM) [facility]2023-09-24 14:54:00 Test Item Value Reference Range Interpretation Comments Shigella spp. (test Not Detected (06/19/23 code = Shigella spp.) 9:54 AM) [facility]2023-09-24 14:54:00 Test Item Value Reference Range Interpretation Comments Vibrio grp (test code Not Detected (06/19/23 = Vibrio grp) 9:54 AM) [facility]2023-09-24 14:54:00 Test Item Value Reference Range Interpretation Comments Yersinia enterocolitica Not Detected (test code = Yersinia (06/19/23 9:54 AM) enterocolitica) [facility]2023-09-24 14:54:00 Test Item Value Reference Range Interpretation Comments Shiga Toxin I (test Not Detected (06/19/23 code = Shiga Toxin I) 9:54 AM) [facility]2023-09-24 14:54:00 Test Item Value Reference Range Interpretation Comments Shiga Toxin II (test Not Detected (06/19/23 code = Shiga Toxin 9:54 AM) II) [place] [id number] 14:54:00 Test Item Value Reference Range Interpretation Comments Norovirus (GI/GII) Not Detected (06/19/23 (test code = Norovirus 9:54 AM) (GI/GII)) [place] [id number] 14:54:00 Test Item Value Reference Range Interpretation Comments Rotavirus (grp A) (test Not Detected 8(06/19/23 code = Rotavirus (grp 9:54 AM) A)) [facility]2023-09-24 14:54:00 Test Item Value Reference Range Interpretation Comments C difficile DNA (test Negative (06/19/23 9:54 code = C difficile DNA) AM) [place] [id number] 14:54:00 Test Item Value Reference Range Interpretation Comments Reason for Order (test Bloody/mucoid diarrhea code = Reason for (06/19/23 9:54 AM) Order) [facility]2023-09-24 14:54:00 Test Item Value Reference Range Interpretation Comments Campylobacter grp (test Not Detected code = Campylobacter grp) (06/19/23 9:54 AM) [facility]2023-09-24 14:54:00 Test Item Value Reference Range Interpretation Comments Salmonella spp. (test Not Detected (06/19/23 code = Salmonella spp.) 9:54 AM) [place] [id number] 14:54:00 Test Item Value Reference Range Interpretation Comments Shigella spp. (test Not Detected (06/19/23 code = Shigella spp.) 9:54 AM) [place] [id number] 14:54:00 Test Item Value Reference Range Interpretation Comments Vibrio grp (test code Not Detected (06/19/23 = Vibrio grp) 9:54 AM) [facility]2023-09-24 14:54:00 Test Item Value Reference Range Interpretation Comments Yersinia enterocolitica Not Detected (test code = Yersinia (06/19/23 9:54 AM) enterocolitica) [place] [id number] 14:54:00 Test Item Value Reference Range Interpretation Comments Shiga Toxin I (test Not Detected (06/19/23 code = Shiga Toxin I) 9:54 AM) [place] [id number] 14:54:00 Test Item Value Reference Range Interpretation Comments Shiga Toxin II (test Not Detected (06/19/23 code = Shiga Toxin 9:54 AM) II) [place] [id number] 14:54:00 Test Item Value Reference Range Interpretation Comments Norovirus (GI/GII) Not Detected (06/19/23 (test code = Norovirus 9:54 AM) (GI/GII)) [place] [id number] 14:54:00 Test Item Value Reference Range Interpretation Comments Rotavirus (grp A) (test Not Detected 8(06/19/23 code = Rotavirus (grp 9:54 AM) A)) [facility]2023-09-24 14:54:00 Test Item Value Reference Range Interpretation Comments C difficile DNA (test Negative (06/19/23 9:54 code = C difficile DNA) AM) [facility]2023-09-24 14:54:00 Test Item Value Reference Range Interpretation Comments Reason for Order (test Bloody/mucoid diarrhea code = Reason for (06/19/23 9:54 AM) Order) [facility]2023-09-24 14:54:00 Test Item Value Reference Range Interpretation Comments Campylobacter grp (test Not Detected code = Campylobacter grp) (06/19/23 9:54 AM) [facility]2023-09-24 14:54:00 Test Item Value Reference Range Interpretation Comments Salmonella spp. (test Not Detected (06/19/23 code = Salmonella spp.) 9:54 AM) [facility]2023-09-24 14:54:00 Test Item Value Reference Range Interpretation Comments Shigella spp. (test Not Detected (06/19/23 code = Shigella spp.) 9:54 AM) [facility]2023-09-24 14:54:00 Test Item Value Reference Range Interpretation Comments Vibrio grp (test code Not Detected (06/19/23 = Vibrio grp) 9:54 AM) [facility]2023-09-24 14:54:00 Test Item Value Reference Range Interpretation Comments Yersinia enterocolitica Not Detected (test code = Yersinia (06/19/23 9:54 AM) enterocolitica) [facility]2023-09-24 14:54:00 Test Item Value Reference Range Interpretation Comments Shiga Toxin I (test Not Detected (06/19/23 code = Shiga Toxin I) 9:54 AM) [facility]2023-09-24 14:54:00 Test Item Value Reference Range Interpretation Comments Shiga Toxin II (test Not Detected (06/19/23 code = Shiga Toxin 9:54 AM) II) [place] [id number] 14:54:00 Test Item Value Reference Range Interpretation Comments Norovirus (GI/GII) Not Detected (06/19/23 (test code = Norovirus 9:54 AM) (GI/GII)) [facility]2023-09-24 14:54:00 Test Item Value Reference Range Interpretation Comments Rotavirus (grp A) (test Not Detected 8(06/19/23 code = Rotavirus (grp 9:54 AM) A)) [place] [id number] 06:09:11 Test Item Value Reference Range Interpretation Comments RADRPT (test code PROCEDURE INFORMATION: = RADRPT) Exam: US Retroperitoneal; Complete; Kidneys and Bladder Exam date and time: 06/17/2023 5:59 PM Age: 47 years old Clinical indication: /alissa, hyperkalemia, rule out hydro TECHNIQUE: Imaging protocol: Real-time ultrasound of the retroperitoneum with image documentation. Complete exam focused on the kidneys and bladder. COMPARISON: ABDOMEN/PELVIS WO IV CONTRAST CT 05/01/2023 10:01 PM FINDINGS: Right kidney: Mildly echogenic renal cortex. No stones. No hydronephrosis. Measures approximately 8 cm in length. Left kidney: Mildly echogenic renal cortex. No stones. No hydronephrosis. Measures 9.2 cm in length. Urinary bladder: Decompressed around a Capone catheter.IMPRESSION: Findings suggestive of medical renal disease. No hydronephrosis. Juan Cheung MD On 06/18/2023 01:08:05; [id number] [place] [id number] 06:09:11 Test Item Value Reference Range Interpretation Comments RADRPT (test code PROCEDURE INFORMATION: = RADRPT) Exam: US Retroperitoneal; Complete; Kidneys and Bladder Exam date and time: 06/17/2023 5:59 PM Age: 47 years old Clinical indication: /alissa, hyperkalemia, rule out hydro TECHNIQUE: Imaging protocol: Real-time ultrasound of the retroperitoneum with image documentation. Complete exam focused on the kidneys and bladder. COMPARISON: ABDOMEN/PELVIS WO IV CONTRAST CT 05/01/2023 10:01 PM FINDINGS: Right kidney: Mildly echogenic renal cortex. No stones. No hydronephrosis. Measures approximately 8 cm in length. Left kidney: Mildly echogenic renal cortex. No stones. No hydronephrosis. Measures 9.2 cm in length. Urinary bladder: Decompressed around a Capone catheter.IMPRESSION: Findings suggestive of medical renal disease. No hydronephrosis. Juan Cheung MD On 06/18/2023 01:08:05; [id number] [facility] [id number] 06:09:11 Test Item Value Reference Range Interpretation Comments RADRPT (test code PROCEDURE INFORMATION: = RADRPT) Exam: US Retroperitoneal; Complete; Kidneys and Bladder Exam date and time: 06/17/2023 5:59 PM Age: 47 years old Clinical indication: /alissa, hyperkalemia, rule out hydro TECHNIQUE: Imaging protocol: Real-time ultrasound of the retroperitoneum with image documentation. Complete exam focused on the kidneys and bladder. COMPARISON: ABDOMEN/PELVIS WO IV CONTRAST CT 05/01/2023 10:01 PM FINDINGS: Right kidney: Mildly echogenic renal cortex. No stones. No hydronephrosis. Measures approximately 8 cm in length. Left kidney: Mildly echogenic renal cortex. No stones. No hydronephrosis. Measures 9.2 cm in length. Urinary bladder: Decompressed around a Capone catheter.IMPRESSION: Findings suggestive of medical renal disease. No hydronephrosis. Juan Cheung MD On 06/18/2023 01:08:05; [id number] [facility] HospitalVadbutsQZQKZJPKE2943-06-16 04:00:00 Test Item Value Reference Range Interpretation Comments U Osmolality (test code = U Osmolality) 406 300-800 [facility] HospitalOefyrrdAYIISLBHP7777-79-47 04:00:00 Test Item Value Reference Range Interpretation Comments U Sodium (test code = U Sodium) 6 [facility] HospitalOdkttwfKPEKZTPBA7356-64-81 04:00:00 Test Item Value Reference Range Interpretation Comments U Creatinine (test code = U 113.00 Creatinine) [facility] HospitalNqbfplzWRYGKWKCV8112-52-15 04:00:00 Test Item Value Reference Range Interpretation Comments U Chloride (test code = U Chloride) 10 [facility] HospitalCornoqdQOEYYZRJX1544-93-55 04:00:00 Test Item Value Reference Range Interpretation Comments Osmolality (test code = Osmolality) 275 280-300 [facility] HospitalCkwculgQCJMVYSOO8444-05-82 04:00:00 Test Item Value Reference Range Interpretation Comments U Osmolality (test code = U Osmolality) 406 300-800 [facility] HospitalOvzsruxVDRLNFBIH9954-52-38 04:00:00 Test Item Value Reference Range Interpretation Comments U Sodium (test code = U Sodium) 6 [facility] HospitalStluagpGVPYLMHXJ8374-29-22 04:00:00 Test Item Value Reference Range Interpretation Comments U Creatinine (test code = U 113.00 Creatinine) [facility] HospitalKuoaxhjVMDFMVABY6912-84-28 04:00:00 Test Item Value Reference Range Interpretation Comments U Chloride (test code = U Chloride) 10 [facility] Ho[id number] 04:00:00 Test Item Value Reference Range Interpretation Comments Osmolality (test code = Osmolality) 275 280-300 [facility] HospitalTkhywffGQKTDFIQP0619-61-91 04:00:00 Test Item Value Reference Range Interpretation Comments U Osmolality (test code = U Osmolality) 406 300-800 [facility] HospitalXmsifnjOYLVKPJXT4954-35-23 04:00:00 Test Item Value Reference Range Interpretation Comments U Sodium (test code = U Sodium) 6 [facility] HospitalItuojwqAPZLLATHW7297-34-08 04:00:00 Test Item Value Reference Range Interpretation Comments U Creatinine (test code = U 113.00 Creatinine) [facility] HospitalBmobqsnHLFGDHSQN0294-81-17 04:00:00 Test Item Value Reference Range Interpretation Comments U Chloride (test code = U Chloride) 10 [facility] HospitalUvkraocEBIIEWUWV3716-42-25 04:00:00 Test Item Value Reference Range Interpretation Comments Osmolality (test code = Osmolality) 275 280-300 [place] [id number] 15:29:51 Test Item Value Reference Range Interpretation Comments RADRPT (test code PROCEDURE INFORMATION: = RADRPT) Exam: XR Chest Exam date and time: 06/17/2023 9:43 AM Age: 47 years old Clinical indication: /gen weakness TECHNIQUE: Imaging protocol: Radiologic exam of the chest. Views: 1 view. COMPARISON: CHEST 1VIEW DX 05/01/2023 7:58 PM FINDINGS: Lungs: No confuent reticular opacities. No consolidation. Pleural spaces: No pleural effusion. No pneumothorax. Heart/Mediastinum: Within normal limits. Bones/joints: Unremarkable as visualized. IMPRESSION: No acute cardiopulmonary findings. Gibran Shetty DO On 06/17/2023 10:28:25; [id number] [place] [id number] 15:29:51 Test Item Value Reference Range Interpretation Comments RADRPT (test code PROCEDURE INFORMATION: = RADRPT) Exam: XR Chest Exam date and time: 06/17/2023 9:43 AM Age: 47 years old Clinical indication: /gen weakness TECHNIQUE: Imaging protocol: Radiologic exam of the chest. Views: 1 view. COMPARISON: CHEST 1VIEW DX 05/01/2023 7:58 PM FINDINGS: Lungs: No confuent reticular opacities. No consolidation. Pleural spaces: No pleural effusion. No pneumothorax. Heart/Mediastinum: Within normal limits. Bones/joints: Unremarkable as visualized. IMPRESSION: No acute cardiopulmonary findings. Gibran Shetty DO On 06/17/2023 10:28:25; [id number] [id number] 15:29:51 Test Item Value Reference Range Interpretation Comments RADRPT (test code PROCEDURE INFORMATION: = RADRPT) Exam: XR Chest Exam date and time: 06/17/2023 9:43 AM Age: 47 years old Clinical indication: /gen weakness TECHNIQUE: Imaging protocol: Radiologic exam of the chest. Views: 1 view. COMPARISON: CHEST 1VIEW DX 05/01/2023 7:58 PM FINDINGS: Lungs: No confuent reticular opacities. No consolidation. Pleural spaces: No pleural effusion. No pneumothorax. Heart/Mediastinum: Within normal limits. Bones/joints: Unremarkable as visualized. IMPRESSION: No acute cardiopulmonary findings. Gibran Shetty DO On 06/17/2023 10:28:25; [id number] [id number] 15:03:00 Test Item Value Reference Range Interpretation Comments U Preg (test code = U Negative (06/17/23 10:03 Preg) AM) [facility] HermannGENTAMICIN:SUSC:PT:ISOLATE:ORDQN:[id number] 15:03:00 Test Item Value Reference Range Interpretation Comments Culture: Urine (test >100,000 CFU/mL code = Culture: Escherichia coli ESBL . Urine) Multi-drug Resistant Organism 10,000 - 50,000 CFU/mL Klebsiella pneumoniae ssp pneumoniae 10,000 - 50,000 CFU/mL Skin Faviola [facility] HermannGENTAMICIN:SUSC:PT:ISOLATE:ORDQN:[id number] 15:03:00 Test Item Value Reference Range Interpretation Comments Klebsiella pneumoniae Klebsiella pneumoniae ssp pneumoniae (test ssp pneumoniae code = Klebsiella pneumoniae ssp pneumoniae) [facility]GENT[facility]ICIN:SUSC:PT:ISOLATE:ORDQN:[id number] 15:03:00 Test Item Value Reference Range Interpretation Comments Escherichia coli ESBL Escherichia coli ESBL (test code = Escherichia coli ESBL) [facility] AND [id number] 15:03:00 Test Item Value Reference Range Interpretation Comments UA Color (test code = Yellow *NA*(06/17/23 UA Color) 10:03 AM) [facility] AND [id number] 15:03:00 Test Item Value Reference Range Interpretation Comments UA Turbidity (test code Marked *ABN*(06/17/23 = UA Turbidity) 10:03 AM) [facility] AND [id number] 15:03:00 Test Item Value Reference Range Interpretation Comments UA Spec Grav (test code = UA Spec 1.012 1 Grav) [facility] AND [id number] 15:03:00 Test Item Value Reference Range Interpretation Comments UA pH (test code = UA pH) 5.0 1 5.0-8.0 [facility] AND [id number] 15:03:00 Test Item Value Reference Range Interpretation Comments UA Protein (test code = UA Negative mg/dL Protein) [facility] AND [id number] 15:03:00 Test Item Value Reference Range Interpretation Comments UA Glucose (test code = UA Negative mg/dL Glucose) [facility] AND [id number] 15:03:00 Test Item Value Reference Range Interpretation Comments UA Ketones (test code = UA Negative mg/dL Ketones) [facility] AND [id number] 15:03:00 Test Item Value Reference Range Interpretation Comments UA Bili (test code = Negative *NA*(06/17/23 UA Bili) 10:03 AM) [facility] AND [id number] 15:03:00 Test Item Value Reference Range Interpretation Comments UA Blood (test code = Negative (06/17/23 10:03 UA Blood) AM) [facility] AND [id number] 15:03:00 Test Item Value Reference Range Interpretation Comments UA Nitrite (test code Negative (06/17/23 10:03 = UA Nitrite) AM) [facility] [id number] 15:03:00 Test Item Value Reference Range Interpretation Comments UA Leuk Est (test code Large *ABN*(06/17/23 = UA Leuk Est) 10:03 AM) [facility] [id number] 15:03:00 Test Item Value Reference Range Interpretation Comments UA Ascorbic Acid (test Negative code = UA Ascorbic 11*NA*(06/17/23 10:03 Acid) AM) [facility] [id number] 15:03:00 Test Item Value Reference Range Interpretation Comments UA WBC (test code = UA WBC) 62 <=5 [facility] [id number] 15:03:00 Test Item Value Reference Range Interpretation Comments UA RBC (test code = UA RBC) 11 <=2 [facility] [id number] 15:03:00 Test Item Value Reference Range Interpretation Comments UA Bacteria (test code = UA Occasional /HPF Bacteria) [facility] [id number] 15:03:00 Test Item Value Reference Range Interpretation Comments UA CaOx Juanis (test code = UA Occasional /HPF CaOx Juanis) [facility] [id number] 15:03:00 Test Item Value Reference Range Interpretation Comments UA Hyal Cast (test code = UA Hyal Cast) 1 <=2 [facility] [id number] 15:03:00 Test Item Value Reference Range Interpretation Comments UA Sq Epi (test code = UA Sq Epi) None [facility]en [facility] [id number] 15:03:00 Test Item Value Reference Range Interpretation Comments UA Urobilinogen (test code = UA <=1.0 mg/dL 0.1-1.0 Urobilinogen) [facility] DhjpffyAUVHBFEHY0526-05-59 15:03:00 Test Item Value Reference Range Interpretation Comments U Preg (test code = U Negative (06/17/23 10:03 Preg) AM) [facility] RaoulannGENTAMICIN:SUSC:PT:ISOLATE:ORDQN:[id number] 15:03:00 Test Item Value Reference Range Interpretation Comments Culture: Urine (test >100,000 CFU/mL code = Culture: Escherichia coli ESBL . Urine) Multi-drug Resistant Organism 10,000 - 50,000 CFU/mL Klebsiella pneumoniae ssp pneumoniae 10,000 - 50,000 CFU/mL Skin Faviola [facility]:PT:ISOLATE:ORDQN:[id number] 15:03:00 Test Item Value Reference Range Interpretation Comments Klebsiella pneumoniae Klebsiella pneumoniae ssp pneumoniae (test ssp pneumoniae code = Klebsiella pneumoniae ssp pneumoniae) [facility]:PT:ISOLATE:ORDQN:[id number] 15:03:00 Test Item Value Reference Range Interpretation Comments Escherichia coli ESBL Escherichia coli ESBL (test code = Escherichia coli ESBL) [facility] AND [id number] 15:03:00 Test Item Value Reference Range Interpretation Comments UA Color (test code = Yellow *NA*(06/17/23 UA Color) 10:03 AM) [facility] AND [id number] 15:03:00 Test Item Value Reference Range Interpretation Comments UA Turbidity (test code Marked *ABN*(06/17/23 = UA Turbidity) 10:03 AM) [facility] AND [id number] 15:03:00 Test Item Value Reference Range Interpretation Comments UA Spec Grav (test code = UA Spec 1.012 1 Grav) [facility] AND [id number] 15:03:00 Test Item Value Reference Range Interpretation Comments UA pH (test code = UA pH) 5.0 1 5.0-8.0 [facility] AND [id number] 15:03:00 Test Item Value Reference Range Interpretation Comments UA Protein (test code = UA Negative mg/dL Protein) [facility] AND [id number] 15:03:00 Test Item Value Reference Range Interpretation Comments UA Glucose (test code = UA Negative mg/dL Glucose) [facility] AND [id number] 15:03:00 Test Item Value Reference Range Interpretation Comments UA Ketones (test code = UA Negative mg/dL Ketones) [facility] AND [id number] 15:03:00 Test Item Value Reference Range Interpretation Comments UA Bili (test code = Negative *NA*(06/17/23 UA Bili) 10:03 AM) [facility] AND [id number] 15:03:00 Test Item Value Reference Range Interpretation Comments UA Blood (test code = Negative (06/17/23 10:03 UA Blood) AM) [facility] [id number] 15:03:00 Test Item Value Reference Range Interpretation Comments UA Nitrite (test code Negative (06/17/23 10:03 = UA Nitrite) AM) [facility] [id number] 15:03:00 Test Item Value Reference Range Interpretation Comments UA Leuk Est (test code Large *ABN*(06/17/23 = UA Leuk Est) 10:03 AM) [facility] [id number] 15:03:00 Test Item Value Reference Range Interpretation Comments UA Ascorbic Acid (test Negative code = UA Ascorbic 11*NA*(06/17/23 10:03 Acid) AM) [facility] [id number] 15:03:00 Test Item Value Reference Range Interpretation Comments UA WBC (test code = UA WBC) 62 <=5 [facility] [id number] 15:03:00 Test Item Value Reference Range Interpretation Comments UA RBC (test code = UA RBC) 11 <=2 [facility] [id number] 15:03:00 Test Item Value Reference Range Interpretation Comments UA Bacteria (test code = UA Occasional /HPF Bacteria) [facility] [id number] 15:03:00 Test Item Value Reference Range Interpretation Comments UA CaOx Juanis (test code = UA Occasional /HPF CaOx Juanis) [facility] [id number] 15:03:00 Test Item Value Reference Range Interpretation Comments UA Hyal Cast (test code = UA Hyal Cast) 1 <=2 [facility] [id number] 15:03:00 Test Item Value Reference Range Interpretation Comments UA Sq Epi (test code = UA Sq Epi) None [facility]en [facility] [id number] 15:03:00 Test Item Value Reference Range Interpretation Comments UA Urobilinogen (test code = UA <=1.0 mg/dL 0.1-1.0 Urobilinogen) [facility] [id number] 15:03:00 Test Item Value Reference Range Interpretation Comments U Preg (test code = U Negative (06/17/23 10:03 Preg) AM) [facility]C:PT:ISOLATE:ORDQN:[id number] 15:03:00 Test Item Value Reference Range Interpretation Comments Culture: Urine (test >100,000 CFU/mL code = Culture: Escherichia coli ESBL . Urine) Multi-drug Resistant Organism 10,000 - 50,000 CFU/mL Klebsiella pneumoniae ssp pneumoniae 10,000 - 50,000 CFU/mL Skin Faviola [facility]C:PT:ISOLATE:ORDQN:[id number] 15:03:00 Test Item Value Reference Range Interpretation Comments Klebsiella pneumoniae Klebsiella pneumoniae ssp pneumoniae (test ssp pneumoniae code = Klebsiella pneumoniae ssp pneumoniae) [facility]USC:PT:ISOLATE:ORDQN:[id number] 15:03:00 Test Item Value Reference Range Interpretation Comments Escherichia coli ESBL Escherichia coli ESBL (test code = Escherichia coli ESBL) [facility] AND [id number] 15:03:00 Test Item Value Reference Range Interpretation Comments UA Color (test code = Yellow *NA*(06/17/23 UA Color) 10:03 AM) [facility] AND [id number] 15:03:00 Test Item Value Reference Range Interpretation Comments UA Turbidity (test code Marked *ABN*(06/17/23 = UA Turbidity) 10:03 AM) [facility] AND [id number] 15:03:00 Test Item Value Reference Range Interpretation Comments UA Spec Grav (test code = UA Spec 1.012 1 Grav) [facility] AND [id number] 15:03:00 Test Item Value Reference Range Interpretation Comments UA pH (test code = UA pH) 5.0 1 5.0-8.0 [facility] AND [id number] 15:03:00 Test Item Value Reference Range Interpretation Comments UA Protein (test code = UA Negative mg/dL Protein) [facility] AND [id number] 15:03:00 Test Item Value Reference Range Interpretation Comments UA Glucose (test code = UA Negative mg/dL Glucose) [facility] AND [id number] 15:03:00 Test Item Value Reference Range Interpretation Comments UA Ketones (test code = UA Negative mg/dL Ketones) [facility] AND [id number] 15:03:00 Test Item Value Reference Range Interpretation Comments UA Bili (test code = Negative *NA*(06/17/23 UA Bili) 10:03 AM) [facility] [id number] 15:03:00 Test Item Value Reference Range Interpretation Comments UA Blood (test code = Negative (06/17/23 10:03 UA Blood) AM) [facility] [id number] 15:03:00 Test Item Value Reference Range Interpretation Comments UA Nitrite (test code Negative (06/17/23 10:03 = UA Nitrite) AM) [facility] [id number] 15:03:00 Test Item Value Reference Range Interpretation Comments UA Leuk Est (test code Large *ABN*(06/17/23 = UA Leuk Est) 10:03 AM) [facility] [id number] 15:03:00 Test Item Value Reference Range Interpretation Comments UA Ascorbic Acid (test Negative code = UA Ascorbic 11*NA*(06/17/23 10:03 Acid) AM) [facility] [id number] 15:03:00 Test Item Value Reference Range Interpretation Comments UA WBC (test code = UA WBC) 62 <=5 [facility] [id number] 15:03:00 Test Item Value Reference Range Interpretation Comments UA RBC (test code = UA RBC) 11 <=2 [facility] [id number] 15:03:00 Test Item Value Reference Range Interpretation Comments UA Bacteria (test code = UA Occasional /HPF Bacteria) [facility] [id number] 15:03:00 Test Item Value Reference Range Interpretation Comments UA CaOx Juanis (test code = UA Occasional /HPF CaOx Juains) [facility] [id number] 15:03:00 Test Item Value Reference Range Interpretation Comments UA Hyal Cast (test code = UA Hyal Cast) 1 <=2 [facility] [id number] 15:03:00 Test Item Value Reference Range Interpretation Comments UA Sq Epi (test code = UA Sq Epi) None [facility]en [facility] [id number] 15:03:00 Test Item Value Reference Range Interpretation Comments UA Urobilinogen (test code = UA <=1.0 mg/dL 0.1-1.0 Urobilinogen) [facility] [id number] 15:00:00 Test Item Value Reference Range Interpretation Comments HS Troponin I (test code = HS Troponin 3 I) [facility] [id number] 15:00:00 Test Item Value Reference Range Interpretation Comments Procalcitonin Lvl (test code = 0.32 <=0.10 Procalcitonin Lvl) [facility]: [id number] 15:00:00 Test Item Value Reference Range Interpretation Comments Culture: Blood (test code No Growth At 5 Days = Culture: Blood) [facility]: [id number] 15:00:00 Test Item Value Reference Range Interpretation Comments Culture: Blood (test code No Growth At 5 Days = Culture: Blood) [facility] [id number] 15:00:00 Test Item Value Reference Range Interpretation Comments HS Troponin I (test code = HS Troponin 3 I) [facility] Ho[id number] 15:00:00 Test Item Value Reference Range Interpretation Comments Procalcitonin Lvl (test code = 0.32 <=0.10 Procalcitonin Lvl) [facility]: [id number] 15:00:00 Test Item Value Reference Range Interpretation Comments Culture: Blood (test code No Growth At 5 Days = Culture: Blood) [facility]: [id number] 15:00:00 Test Item Value Reference Range Interpretation Comments Culture: Blood (test code No Growth At 5 Days = Culture: Blood) [facility] [id number] 15:00:00 Test Item Value Reference Range Interpretation Comments HS Troponin I (test code = HS Troponin 3 I) [facility] Hospital[id number] 15:00:00 Test Item Value Reference Range Interpretation Comments Procalcitonin Lvl (test code = 0.32 <=0.10 Procalcitonin Lvl) [facility]: [id number] 15:00:00 Test Item Value Reference Range Interpretation Comments Culture: Blood (test code No Growth At 5 Days = Culture: Blood) [facility]: [id number] 15:00:00 Test Item Value Reference Range Interpretation Comments Culture: Blood (test code No Growth At 5 Days = Culture: Blood) [facility] METABOLIC [id number] 05:47:00 Test Item Value Reference Range Interpretation Comments SODIUM (test code = 138 mmol/L 136-145 N NA) POTASSIUM (test 4.0 mmol/L 3.5-5.1 N code = K) CHLORIDE (test code 106.0 mmol/L 98-107 N = CL) CARBON DIOXIDE 21.0 mmol/L 21-32 N (test code = CO2) ANION GAP (test 15.0 10-20 N code = GAP) GLUCOSE (test code 77 mg/dL 74-106 N = GLU) BLOOD UREA [...] for GFRby the [facility] on for Adults.The GFR [...] due to change in reage nt. BUN/CREATININE 6.1 10-20 L RATIO (test code = BUN/CREA) CALCIUM (test code 8.5 mg/dL 8.5-10.1 N = CA) [id number] 05:47:00 Test Item Value Reference Range Interpretation Comments PHOSPHORUS (test code = PHOS) 3.9 mg/dL 2.5-4.9 N [id number] 05:47:00 Test Item Value Reference Range Interpretation Comments MAGNESIUM (test code = MAG) 1.2 mg/dL 1.8-2.4 L VITAMIN [id number] 05:37:00 Test Item Value Reference Range Interpretation Comments VITAMIN B12 (test code = VITB12) 753 pg/mL 193-986 N CBC W/AUTO [id number] 05:17:00 Test Item Value Reference Range Interpretation [...] DIFF REQUIRED (test code NO = MDIFF) [id number] 23:35:00 Test Item Value Reference Range Interpretation Comments GLUBED (test code = 80 mg/dL 74-106 N Performe d by certified GLUBED) drill 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 [facility] [id number] 03:41:00 Test Item Value Reference Range Interpretation Comments GLUBED (test code = 78 mg/dL 74-106 N Performe d by certified GLUBED) drill 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 [facility] [id number] 14:59:00 Test Item Value Reference Range Interpretation Comments GLUBED (test code = 79 mg/dL 74-106 N Performe d by certified GLUBED) drill 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 [facility] [id number] 20:10:00 Test Item Value Reference Range Interpretation Comments GLUBED (test code = 95 mg/dL 74-106 N Performe d by certified GLUBED) 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 ot[facility]~ [id number] 17:21:00 Test Item Value Reference Range Interpretation Comments GLUBED (test code = 102 mg/dL 74-106 N Performe d by certified GLUBED) drill 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 [facility] [id number] 11:50:00 Test Item Value Reference Range Interpretation Comments GLUBED (test code = 96 mg/dL 74-106 N Performe d by certified GLUBED) drill 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 [facility] [id number] 08:21:00 Test Item Value Reference Range Interpretation Comments GLUBED (test code = 107 mg/dL 74-106 H Performe d by certified GLUBED) drill 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 [facility] BASIC METABOLIC [id number] 04:14:00 Test Item Value Reference Range Interpretation [...] the recommended for sudhir for GFRby the [facility] for Ad[facility].The GFR will [...] mg/dL 8.5-10.1 L = CA) CBC W/AUTO [id number] 03:55:00 Test Item Value Reference Range Interpretation [...] code = 0.00 K/mm3 0.0-0.1 N NRBC#) [id number] 20:12:00 Test Item Value Reference Range Interpretation Comments GLUBED (test code = 91 mg/dL 74-106 N Performe d by certified GLUBED) 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~ [id number] 16:48:00 Test Item Value Reference Range Interpretation Comments GLUBED (test code = 73 mg/dL 74-106 L Performe d by certified GLUBED) drill 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 [facility] [id number] 12:08:00 Test Item Value Reference Range Interpretation Comments GLUBED (test code = 91 mg/dL 74-106 N Performe d by certified GLUBED) drill 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 [facility] BASIC METABOLIC [id number] 10:07:00 Test Item Value Reference Range Interpretation [...] recommended for sudhir for GFRby the N [facility] for Ad[facility].The GFR will [...] 8.5-10.1 N = CA) TSH REFLEX TO [id number] 10:07:00 Test Item Value Reference Range Interpretation Comments TSH REFLEX TO FT4 (test code = 4.3 0.4-5.5 N TSHREFLEX) CBC W/AUTO [id number] 09:28:00 Test Item Value Reference Range Interpretation [...] code = 0.00 K/mm3 0.0-0.1 N NRBC#) [id number] 08:07:00 Test Item Value Reference Range Interpretation Comments GLUBED (test code = 71 mg/dL 74-106 L Performe d by certified GLUBED) drill 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 [facility] [id number] 21:56:00 Test Item Value Reference Range Interpretation Comments GLUBED (test code = 120 mg/dL 74-106 H Performe d by certified GLUBED) drill 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 [facility] [id number] 18:04:00 Test Item Value Reference Range Interpretation Comments GLUBED (test code = 85 mg/dL 74-106 N Performe d by certified GLUBED) drill 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 [facility] [id number] 12:16:00 Test Item Value Reference Range Interpretation Comments GLUBED (test code = 87 mg/dL 74-106 N Performe d by certified GLUBED) drill 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 [facility] [id number] 06:28:00 Test Item Value Reference Range Interpretation Comments GLUBED (test code = 81 mg/dL 74-106 N Performe d by certified GLUBED) drill 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 [facility] - XR CHEST 1 [id number] 01:23:00 [facility])Name: GRIS, LIZBET : 1975 Sex: F FAX: Faith Fxo MD [phone] [place]: St: REG Name: LIZBET RAHMAN [facility] : 1975 Age/S: 47/F [address] [facility] Unit #: [id number] Loc: BALJEET [facility] BILL 63603 Phys: Faith Fox MD Acct: [id number] Dis Date: Status: REG ER PHONE #: [phone] Exam Date: 05/08/2023 0119 FAX #: Reason: CODE SEPSIS EXAMS: CPT CODE: [id number] XR CHEST 1 V [id number] EXAM: - XR CHEST 1 V COMPARISON: 03/11/23 LOCATION: 7 HISTORY: 47 years-old Female with CODE SEPSIS TECHNIQUE: Single AP viewof the chest. FINDINGS: The cardiomediastinal silhouette is within normal limits. The lungs are wellaerated. No large pneumothorax or pleural effusion. Osseous structures and soft tissues demonstrate no acute findings. The visualized upper abdomen is unremarkable. IMPRESSION: No acute cardiopulmonary abnormality. at 0123 Reported and signed by: Cl Glass M.D. CC: Faith Fox MD Technologist: RT YISEL(R) Trnscrd Date/Time/By: 05/08/2023 (0123) : By: [email or web address] Orig Print D/T: S: 05/08/2023 (0126) PAGE 1 Signed ReportURINALYSIS COMPLETE 2023-05-08 00:55:00 Test Item Value Reference Range Interpretation Comments UA COLOR (test code = YELLOW YELLOW COLU) UA APPEARANCE (test TURBID CLEAR A IS THE S AMPLE code = APPU) FROM ER OR L&D? Y IF THE ANSWER I S NO,PLEASE DOCUMENT TWO RN SIGNATURES HERE - by [id number] 05/08/23 0050 UA GLUCOSE DIPSTICK NEGATIVE mg/dL [...] Urine Source? Clean CatchDRUGS OF ABUSE SCREEN [id number] 00:55:00 Test Item Value Reference Range Interpretation Comments URN COCAINE (test code = NEGATIVE See_Comment [A utomated message] COCAURN) The system [employer] generated this result transmitted ref erence range: [...] See_Comment [A utomated message] OPIATURN) The system [employer] generated this result transmitted ref erence range: [...] [A utomated message] = [place]) The system [employer] generated this result transmitted ref erence range: <300 ng/ mL. The reference r stefanie was not used to interpret this result as normal/abnor mal. Urine Source? Clean CatchLACTIC [id number] 00:52:00 Test Item Value Reference Range Interpretation Comments LACTIC ACID (test code = LACT) 0.6 mmol/L 0.4-1.9 N [id number] 00:47:00 Test Item Value Reference Range Interpretation Comments TROPONIN-HS 4.500 pg/mL 0-34 N 99th Percentile Upper (test code = Reference Limit TROPI) (URL):Females: 34 pg/mLMales: 54 pg/mL In order to distin [facility] acute elevations of h igh sensitivitytrop onin [...] a fa ctor of 1000. BASIC METABOLIC [id number] 00:31:00 Test Item Value Reference Range Interpretation [...] mg/dL 8.5-10.1 N = CA) HEPATIC FUNCTION [id number] 00:31:00 Test Item Value Reference Range Interpretation [...] ALKP) to change in reagent. HCG SERUM [id number] 00:31:00 Test Item Value Reference Range Interpretation Comments HCG SERUM QUAL (test NEGATIVE NEGATIVE This HC GQL test is NOT code = HCGQL) applicable for MALE patients.Check with nurse about probable order error.If Tumor Marker Test needed, nu rse should order test "HCG TU"(Test #550.86447)---- - [id number] 00:31:00 Test Item Value Reference Range Interpretation Comments ACETAMINOPHEN (test code < 0.2 mg/dL 1.0-3.0 L CAU TION: TO = ACET) CONVERT FROM MG /DL TO MCG/ML MULTI PLY RESULT BY10 [id number] 00:31:00 Test Item Value Reference Range Interpretation Comments SALICYLATE (test code = MELYSSA) < 3.0 mg/dL 2.8-20.0 N [id number] 00:31:00 Test Item Value Reference Range Interpretation Comments ALCOHOL (test code = 3 mg/dL 0.0-3.0 N ------- INTERPRET ALC) DAVID DATA NOTE: POSITIVE SCREEN ING RESULTS SHOULD BE CONSI DERED PRESUMPTIVE.WHE N COLLECTED FOR MEDICAL PUR POSES ONLY. SPECIMEN WILL N OTBE COLLECTED BY [facility] C[facility].IF A CO NFIRMATION OF POSITIVE RES ULTS IS DESIRED, ACONFI RMATION TEST MUST BE RE QUESTED BY THE PHYSICIAN Bryan Becerril ANADDITIONAL ARGE TO THE PATIENT. COVID 19 Asymptomatic IH [id number] 00:12:00 Test Item Value Reference Range Interpretation Comments COVID 19 Asymptomatic IH AG (test NEGATIVE NEGATIVE code = COVNONPUIAG) CBC W/O [id number] 23:52:00 Test Item Value Reference Range Interpretation [...] code 9.9 fL 6.7-11.0 N = MPV) [id number] 09:49:00 Test Item Value Reference Range Interpretation Comments Glucose Lvl (test code = Glucose Lvl) 77 70-99 [place] [id number] 09:49:00 Test Item Value Reference Range Interpretation Comments BUN (test code = BUN) 8 7-22 [facility] Ho[id number] 09:49:00 Test Item Value Reference Range Interpretation Comments Creatinine Lvl (test code = Creatinine 0.96 0.50-1.40 Lvl) [facility] HospitalRsrpcwqBEMJBGZGW2644-28-12 09:49:00 Test Item Value Reference Range Interpretation Comments Sodium Lvl (test code = Sodium Lvl) 138 135-145 [place] 394853-08-11 09:49:00 Test Item Value Reference Range Interpretation Comments Potassium Lvl (test code = Potassium 3.9 3.5-5.1 Lvl) [facility] [id number] 09:49:00 Test Item Value Reference Range Interpretation Comments Chloride Lvl (test code = Chloride Lvl) 110 95-109 [facility] HospitalDzvgthqMTKZMNRQJ4098-74-50 09:49:00 Test Item Value Reference Range Interpretation Comments CO2 (test code = CO2) 21 24-32 [facility] HospitalIbayjipWEEBDHRVS9334-36-27 09:49:00 Test Item Value Reference Range Interpretation Comments Calcium Lvl (test code = Calcium Lvl) 8.6 8.5-10.5 [facility] HospitalFidjejvZYWKTHOSG4371-12-07 09:49:00 Test Item Value Reference Range Interpretation Comments AGAP (test code = AGAP) 10.9 10.0-20.0 [facility] HospitalBbugphuIDPHWNNSO7152-36-81 09:49:00 Test Item Value Reference Range Interpretation Comments eGFR (test code = eGFR) 72 [facility] CenterCqfdehsSRLXIEAJIN0591-23-37 09:49:00 Test Item Value Reference Range Interpretation Comments WBC (test code = WBC) 3.3 3.7-10.4 [facility] CenterYdzmtstGMNOPNEVJO6520-30-48 09:49:00 Test Item Value Reference Range Interpretation Comments RBC (test code = RBC) 2.69 4.20-5.40 [place] [address]-08-11 09:49:00 Test Item Value Reference Range Interpretation Comments Hgb (test code = Hgb) 7.9 12.0-16.0 [facility] CenterTtnlbtsKIJLKWAVKX5690-53-63 09:49:00 Test Item Value Reference Range Interpretation Comments Hct (test code = Hct) 23.6 36.0-48.0 [facility] CenterIzjwcthXMVWJXHRBM4381-88-63 09:49:00 Test Item Value Reference Range Interpretation Comments MCV (test code = MCV) 87.5 80.0-98.0 [facility] CenterOfqsjioVLDDLLKZMZ2470-41-65 09:49:00 Test Item Value Reference Range Interpretation Comments MCH (test code = MCH) 29.5 pg 27.0-31.0 [facility] CenterSwjnewhFECFKXFSUQ0493-51-96 09:49:00 Test Item Value Reference Range Interpretation Comments MCHC (test code = MCHC) 33.7 32.0-36.0 [facility] CenterIflequaZKDDLYSYBT8033-56-05 09:49:00 Test Item Value Reference Range Interpretation Comments RDW (test code = RDW) 15.0 11.5-14.5 [place] [id number] 09:49:00 Test Item Value Reference Range Interpretation Comments Platelet (test code = Platelet) 229 133-450 [facility] CenterNmvizdeAEAZQWFWEU4602-97-88 09:49:00 Test Item Value Reference Range Interpretation Comments MPV (test code = MPV) 8.0 7.4-10.4 [facility] CenterIiqplgbOFXYSUFQOG5521-27-13 09:49:00 Test Item Value Reference Range Interpretation Comments Segs (test code = Segs) 62.1 45.0-75.0 [facility] CenterZvtwziaUKNCBTTDSS3265-06-37 09:49:00 Test Item Value Reference Range Interpretation Comments Lymphocytes (test code = Lymphocytes) 28.3 20.0-40.0 [place] [address]-08-11 09:49:00 Test Item Value Reference Range Interpretation Comments Monocytes (test code = Monocytes) 7.1 2.0-12.0 [place] [address]-08-11 09:49:00 Test Item Value Reference Range Interpretation Comments Eosinophils (test code = Eosinophils) 1.4 <=4.0 [facility] CenterGiiyapoDHICIGJMQY7638-58-24 09:49:00 Test Item Value Reference Range Interpretation Comments Basophils (test code = Basophils) 1.1 <=1.0 [facility] CenterMfxxiabBSPUAYMGHN1736-38-80 09:49:00 Test Item Value Reference Range Interpretation Comments Neutrophils # (test code = Neutrophils 2.0 1.5-8.1 #) [facility] CenterLkyifksWLGQLAGTBY8944-83-70 09:49:00 Test Item Value Reference Range Interpretation Comments Lymphocytes # (test code = Lymphocytes 0.9 1.0-5.5 #) [facility] CenterSjdjqdrKGQCZOQXDW2215-15-86 09:49:00 Test Item Value Reference Range Interpretation Comments Monocytes # (test code = Monocytes #) 0.2 <=0.8 [place] 394853-08-11 09:49:00 Test Item Value Reference Range Interpretation Comments Glucose Lvl (test code = Glucose Lvl) 77 70-99 [facility] HospitalJleifrkZZSVXQGJJ3714-12-41 09:49:00 Test Item Value Reference Range Interpretation Comments BUN (test code = BUN) 8 7-22 [facility] HospitalJrfnkjnQBFDGISYS5300-65-42 09:49:00 Test Item Value Reference Range Interpretation Comments Creatinine Lvl (test code = Creatinine 0.96 0.50-1.40 Lvl) [facility] HospitalBowukfvTCENTUJLG5467-52-45 09:49:00 Test Item Value Reference Range Interpretation Comments Sodium Lvl (test code = Sodium Lvl) 138 135-145 [facility] HospitalIdmopqnRKWWLVTHS7992-11-44 09:49:00 Test Item Value Reference Range Interpretation Comments Potassium Lvl (test code = Potassium 3.9 3.5-5.1 Lvl) [facility] HospitalVkgmknpJLNSRYVSG0843-82-61 09:49:00 Test Item Value Reference Range Interpretation Comments Chloride Lvl (test code = Chloride Lvl) 110 95-109 [place] 394853-08-11 09:49:00 Test Item Value Reference Range Interpretation Comments CO2 (test code = CO2) 21 24-32 [facility] HospitalEmrqcpuZXMXMQOJX8504-29-41 09:49:00 Test Item Value Reference Range Interpretation Comments Calcium Lvl (test code = Calcium Lvl) 8.6 8.5-10.5 [facility] HospitalZvnfulqZMOYPOONL6000-78-22 09:49:00 Test Item Value Reference Range Interpretation Comments AGAP (test code = AGAP) 10.9 10.0-20.0 [place] [address]-08-11 09:49:00 Test Item Value Reference Range Interpretation Comments eGFR (test code = eGFR) 72 [facility] CenterLeisyqoFNLDBHTZKZ9836-10-67 09:49:00 Test Item Value Reference Range Interpretation Comments WBC (test code = WBC) 3.3 3.7-10.4 [facility] CenterGkipjdlYYNSQTCTOH8867-99-72 09:49:00 Test Item Value Reference Range Interpretation Comments RBC (test code = RBC) 2.69 4.20-5.40 [facility] CenterFunxcbuORDKHBPTEF4289-64-39 09:49:00 Test Item Value Reference Range Interpretation Comments Hgb (test code = Hgb) 7.9 12.0-16.0 [facility] CenterJebrfmyDFTPXXMCJW8178-77-21 09:49:00 Test Item Value Reference Range Interpretation Comments Hct (test code = Hct) 23.6 36.0-48.0 [facility] CenterTscrmpdIWZHNRUXUX5299-49-87 09:49:00 Test Item Value Reference Range Interpretation Comments MCV (test code = MCV) 87.5 80.0-98.0 [facility] CenterMsakgzcKVOYTIOMYJ5966-55-07 09:49:00 Test Item Value Reference Range Interpretation Comments MCH (test code = MCH) 29.5 pg 27.0-31.0 [facility] CenterOfofvppFFUSNUZBJW5287-81-34 09:49:00 Test Item Value Reference Range Interpretation Comments MCHC (test code = MCHC) 33.7 32.0-36.0 [facility] CenterZuefqoqNRJGBZHVQY2567-94-55 09:49:00 Test Item Value Reference Range Interpretation Comments RDW (test code = RDW) 15.0 11.5-14.5 [facility] CenterKvvgnibRUJKMBIONA7349-52-54 09:49:00 Test Item Value Reference Range Interpretation Comments Platelet (test code = Platelet) 229 133-450 [facility] CenterCsojnotGHMEZTCALA6449-27-41 09:49:00 Test Item Value Reference Range Interpretation Comments MPV (test code = MPV) 8.0 7.4-10.4 [facility] CenterNnenhuqRXSGSALKHJ9241-58-15 09:49:00 Test Item Value Reference Range Interpretation Comments Segs (test code = Segs) 62.1 45.0-75.0 [facility] CenterYaakbssEQSGSABXGA8523-86-62 09:49:00 Test Item Value Reference Range Interpretation Comments Lymphocytes (test code = Lymphocytes) 28.3 20.0-40.0 [facility] CenterZvzglifSYLVZNULPH3985-64-47 09:49:00 Test Item Value Reference Range Interpretation Comments Monocytes (test code = Monocytes) 7.1 2.0-12.0 [facility] CenterRoqpnrdYXBAQZTDCK1604-57-56 09:49:00 Test Item Value Reference Range Interpretation Comments Eosinophils (test code = Eosinophils) 1.4 <=4.0 [place] 752033-08-11 09:49:00 Test Item Value Reference Range Interpretation Comments Basophils (test code = Basophils) 1.1 <=1.0 [place] [address]-08-11 09:49:00 Test Item Value Reference Range Interpretation Comments Neutrophils # (test code = Neutrophils 2.0 1.5-8.1 #) [facility] CenterLvseptqJPYULEZPNC1023-60-99 09:49:00 Test Item Value Reference Range Interpretation Comments Lymphocytes # (test code = Lymphocytes 0.9 1.0-5.5 #) [facility] CenterOfufeqzGRHTBMYIVF3166-74-25 09:49:00 Test Item Value Reference Range Interpretation Comments Monocytes # (test code = Monocytes #) 0.2 <=0.8 [facility] HospitalTmqelteXCCRTPQCE6279-45-50 09:49:00 Test Item Value Reference Range Interpretation Comments Glucose Lvl (test code = Glucose Lvl) 77 70-99 [facility] HospitalIbsrksxQSRZMKOVR2239-63-69 09:49:00 Test Item Value Reference Range Interpretation Comments BUN (test code = BUN) 8 7-22 [facility] HospitalWovtkfwJCWAZKYLM2061-01-18 09:49:00 Test Item Value Reference Range Interpretation Comments Creatinine Lvl (test code = Creatinine 0.96 0.50-1.40 Lvl) [facility] HospitalBmeneilYNBPBBRQB5410-45-91 09:49:00 Test Item Value Reference Range Interpretation Comments Sodium Lvl (test code = Sodium Lvl) 138 135-145 [facility] HospitalKukejcfOKTHEHESO7990-09-92 09:49:00 Test Item Value Reference Range Interpretation Comments Potassium Lvl (test code = Potassium 3.9 3.5-5.1 Lvl) [facility] HospitalTyjwdkyKCBDEUKSR1367-60-61 09:49:00 Test Item Value Reference Range Interpretation Comments Chloride Lvl (test code = Chloride Lvl) 110 95-109 [place] 394853-08-11 09:49:00 Test Item Value Reference Range Interpretation Comments CO2 (test code = CO2) 21 24-32 [facility] HospitalMthauymLRLUFJPGM9409-36-35 09:49:00 Test Item Value Reference Range Interpretation Comments Calcium Lvl (test code = Calcium Lvl) 8.6 8.5-10.5 [facility] HospitalCnobxgfYOXQQOHLO3647-71-18 09:49:00 Test Item Value Reference Range Interpretation Comments AGAP (test code = AGAP) 10.9 10.0-20.0 [facility] HospitalZvjiwwbBWMBFASUR6143-19-78 09:49:00 Test Item Value Reference Range Interpretation Comments eGFR (test code = eGFR) 72 [facility] CenterFmjyibxZWRPQDYFJQ5930-76-63 09:49:00 Test Item Value Reference Range Interpretation Comments WBC (test code = WBC) 3.3 3.7-10.4 [facility] CenterAbspjkcPEEZNRNNJZ0444-80-61 09:49:00 Test Item Value Reference Range Interpretation Comments RBC (test code = RBC) 2.69 4.20-5.40 [facility] CenterPzcokcaDFRWSVQLZY5767-45-96 09:49:00 Test Item Value Reference Range Interpretation Comments Hgb (test code = Hgb) 7.9 12.0-16.0 [facility] CenterXmhifnmTZSYRGHAXT8258-03-71 09:49:00 Test Item Value Reference Range Interpretation Comments Hct (test code = Hct) 23.6 36.0-48.0 [facility] CenterHxbxibtHCMOBWFYUV9791-07-69 09:49:00 Test Item Value Reference Range Interpretation Comments MCV (test code = MCV) 87.5 80.0-98.0 [facility] CenterTontaziRGZUYJQNVB7550-71-24 09:49:00 Test Item Value Reference Range Interpretation Comments MCH (test code = MCH) 29.5 pg 27.0-31.0 [facility] CenterGadbwapJSAXZBBJPD4544-86-36 09:49:00 Test Item Value Reference Range Interpretation Comments MCHC (test code = MCHC) 33.7 32.0-36.0 [facility] CenterIevmgjwXAOIPRTEGI8729-29-17 09:49:00 Test Item Value Reference Range Interpretation Comments RDW (test code = RDW) 15.0 11.5-14.5 [place] 752033-08-11 09:49:00 Test Item Value Reference Range Interpretation Comments Platelet (test code = Platelet) 229 133-450 [facility] CenterQeezfuvTYFYDFIPGW2290-44-50 09:49:00 Test Item Value Reference Range Interpretation Comments MPV (test code = MPV) 8.0 7.4-10.4 [place] [address]-08-11 09:49:00 Test Item Value Reference Range Interpretation Comments Segs (test code = Segs) 62.1 45.0-75.0 [facility] CenterKdcfealGINEVUEJHX0347-34-81 09:49:00 Test Item Value Reference Range Interpretation Comments Lymphocytes (test code = Lymphocytes) 28.3 20.0-40.0 [place] 752033-08-11 09:49:00 Test Item Value Reference Range Interpretation Comments Monocytes (test code = Monocytes) 7.1 2.0-12.0 [facility] CenterYzkhdxdIXYLGPSSML7002-17-29 09:49:00 Test Item Value Reference Range Interpretation Comments Eosinophils (test code = Eosinophils) 1.4 <=4.0 [id number] 09:49:00 Test Item Value Reference Range Interpretation Comments Basophils (test code = Basophils) 1.1 <=1.0 [facility] CenterVszmfqaPNCMLSTNSB5630-98-07 09:49:00 Test Item Value Reference Range Interpretation Comments Neutrophils # (test code = Neutrophils 2.0 1.5-8.1 #) [facility] CenterKyhiidhXSFKKGQUGO0765-76-36 09:49:00 Test Item Value Reference Range Interpretation Comments Lymphocytes # (test code = Lymphocytes 0.9 1.0-5.5 #) [facility] CenterXqygthvXZLMDAHCJB0619-52-14 09:49:00 Test Item Value Reference Range Interpretation Comments Monocytes # (test code = Monocytes #) 0.2 <=0.8 [place] 752033-08-10 10:02:00 Test Item Value Reference Range Interpretation Comments Eosinophils # (test code = Eosinophils 0.1 <=0.5 #) [facility] [id number] 10:02:00 Test Item Value Reference Range Interpretation Comments Eosinophils # (test code = Eosinophils 0.1 <=0.5 #) [facility] CenterVdccwpjQXTZZAAQVJ3821-79-78 10:02:00 Test Item Value Reference Range Interpretation Comments Eosinophils # (test code = Eosinophils 0.1 <=0.5 #) [facility] HospitalTtdegguAMUONPXAU3340-85-28 09:27:00 Test Item Value Reference Range Interpretation Comments Magnesium Lvl (test code = Magnesium 2.4 1.8-2.4 Lvl) [place] 394853-08-09 09:27:00 Test Item Value Reference Range Interpretation Comments Magnesium Lvl (test code = Magnesium 2.4 1.8-2.4 Lvl) [place] [address]-08-09 09:27:00 Test Item Value Reference Range Interpretation Comments Magnesium Lvl (test code = Magnesium 2.4 1.8-2.4 Lvl) [place] [address]-08-08 09:38:00 Test Item Value Reference Range Interpretation Comments Hgb A1C (test code = Hgb A1C) 4.2 1 [place] [address]-08-08 09:38:00 Test Item Value Reference Range Interpretation Comments Hgb A1C (test code = Hgb A1C) 4.2 1 [place] [address]-08-08 09:38:00 Test Item Value Reference Range Interpretation Comments Hgb A1C (test code = Hgb A1C) 4.2 1 [place] [address]-08-08 08:35:00 Test Item Value Reference Range Interpretation Comments Basophils # (test code = Basophils #) 0.1 <=0.2 [place] [address]-08-08 08:35:00 Test Item Value Reference Range Interpretation Comments Basophils # (test code = Basophils #) 0.1 <=0.2 [place] [address]-08-08 08:35:00 Test Item Value Reference Range Interpretation Comments Basophils # (test code = Basophils #) 0.1 <=0.2 [place] [address]-08-08 08:17:00 Test Item Value Reference Range Interpretation Comments Glucose POC (test code = Glucose POC) 91 70-99 [place] [address]-08-08 08:17:00 Test Item Value Reference Range Interpretation Comments Gluc POC Comment 1 (test code Notified RN/MD = Gluc POC Comment 1) [place] [address]-08-08 08:17:00 Test Item Value Reference Range Interpretation Comments Glucose POC (test code = Glucose POC) 91 70-99 [place] [address]-08-08 08:17:00 Test Item Value Reference Range Interpretation Comments Gluc POC Comment 1 (test code Notified RN/MD = Gluc POC Comment 1) [facility]2023-08-08 08:17:00 Test Item Value Reference Range Interpretation Comments Glucose POC (test code = Glucose POC) 91 70-99 [facility]2023-08-08 08:17:00 Test Item Value Reference Range Interpretation Comments Gluc POC Comment 1 (test code Notified RN/MD = Gluc POC Comment 1) [facility]:SUSC:PT:ISOLATE:ORDQN:[id number] 09:11:21 Test Item Value Reference Range Interpretation Comments Culture: Urine 50,000 - 100,000 CFU/mL (test code = Pseudomonas aeruginosa . Culture: Urine) Specimen contains 3 or more potential pathogens; recommend correlation with urinalysis; if catheterized specimen recommend removal and recollection. If clinical situation warrants please call the laboratory for further testing. [facility] [employer] [phone]. [facility]annMEROPENEM:SUSC:PT:ISOLATE:ORDQN:[id number] 09:11:21 Test Item Value Reference Range Interpretation Comments Pseudomonas aeruginosa Pseudomonas aeruginosa (test code = Pseudomonas aeruginosa) [facility]MEROPENEM:SUSC:PT:ISOLATE:ORDQN:[id number] 09:11:21 Test Item Value Reference Range Interpretation Comments Culture: Urine 50,000 - 100,000 CFU/mL (test code = Pseudomonas aeruginosa . Culture: Urine) Specimen contains 3 or more potential pathogens; recommend correlation with urinalysis; if catheterized specimen recommend removal and recollection. If clinical situation warrants please call the laboratory for further testing. [facility] [employer] [phone]. [facility] HermannMEROPENEM:SUSC:PT:ISOLATE:ORDQN:[id number] 09:11:21 Test Item Value Reference Range Interpretation Comments Pseudomonas aeruginosa Pseudomonas aeruginosa (test code = Pseudomonas aeruginosa) [facility] HermannMEROPENEM:SUSC:PT:ISOLATE:ORDQN:[id number] 09:11:21 Test Item Value Reference Range Interpretation Comments Culture: Urine 50,000 - 100,000 CFU/mL (test code = Pseudomonas aeruginosa . Culture: Urine) Specimen contains 3 or more potential pathogens; recommend correlation with urinalysis; if catheterized specimen recommend removal and recollection. If clinical situation warrants please call the laboratory for further testing. [facility] [phone]. [facility] TylerMEROPENEM:SUSC:PT:ISOLATE:ORDQN:[id number] 09:11:21 Test Item Value Reference Range Interpretation Comments Pseudomonas aeruginosa Pseudomonas aeruginosa (test code = Pseudomonas aeruginosa) [facility] AND [id number] 08:37:00 Test Item Value Reference Range Interpretation Comments UA Color (test code = Yellow *NA*(05/02/23 3:37 UA Color) AM) [facility] [id number] 08:37:00 Test Item Value Reference Range Interpretation Comments UA Turbidity (test code Marked *ABN*(05/02/23 = UA Turbidity) 3:37 AM) [facility] AND [id number] 08:37:00 Test Item Value Reference Range Interpretation Comments UA Spec Grav (test code = UA Spec 1.019 1 Grav) [facility] AND [id number] 08:37:00 Test Item Value Reference Range Interpretation Comments UA pH (test code = UA pH) 5.0 1 5.0-8.0 [facility] [id number] 08:37:00 Test Item Value Reference Range Interpretation Comments UA Protein (test code = UA Protein) 100 mg/dL [facility] AND [id number] 08:37:00 Test Item Value Reference Range Interpretation Comments UA Glucose (test code = UA Negative mg/dL Glucose) [facility] [id number] 08:37:00 Test Item Value Reference Range Interpretation Comments UA Ketones (test code = UA Negative mg/dL Ketones) [facility] [id number] 08:37:00 Test Item Value Reference Range Interpretation Comments UA Bili (test code = Negative *NA*(05/02/23 UA Bili) 3:37 AM) [facility] AND [id number] 08:37:00 Test Item Value Reference Range Interpretation Comments UA Blood (test code = Moderate *ABN*(05/02/23 UA Blood) 3:37 AM) [facility] [id number] 08:37:00 Test Item Value Reference Range Interpretation Comments UA Nitrite (test code Negative (05/02/23 3:37 = UA Nitrite) AM) [facility] [id number] 08:37:00 Test Item Value Reference Range Interpretation Comments UA Leuk Est (test code Large *ABN*(05/02/23 3:37 = UA Leuk Est) AM) [facility] [id number] 08:37:00 Test Item Value Reference Range Interpretation Comments UA Ascorbic Acid (test Negative 7*NA*(05/02/23 code = UA Ascorbic 3:37 AM) Acid) [facility] [id number] 08:37:00 Test Item Value Reference Range Interpretation Comments UA Sq Epi (test code = UA Sq Moderate /LPF Epi) [facility] [id number] 08:37:00 Test Item Value Reference Range Interpretation Comments UA WBC (test code = UA WBC) no gt <=5 [facility] [id number] 08:37:00 Test Item Value Reference Range Interpretation Comments UA RBC (test code = UA RBC) 20 <=2 [facility] [id number] 08:37:00 Test Item Value Reference Range Interpretation Comments UA Bacteria (test code = UA Many /HPF Bacteria) [facility] [id number] 08:37:00 Test Item Value Reference Range Interpretation Comments UA Hyal Cast (test code = UA Hyal Cast) 78 <=2 [facility] AND [id number] 08:37:00 Test Item Value Reference Range Interpretation Comments UA Chester Yeast (test code = UA Chester Many /HPF Yeast) [facility] AND [id number] 08:37:00 Test Item Value Reference Range Interpretation Comments UA Urobilinogen (test code = UA <=1.0 mg/dL 0.1-1.0 Urobilinogen) [facility] AND [id number] 08:37:00 Test Item Value Reference Range Interpretation Comments UA Color (test code = Yellow *NA*(05/02/23 3:37 UA Color) AM) [facility] [id number] 08:37:00 Test Item Value Reference Range Interpretation Comments UA Turbidity (test code Marked *ABN*(05/02/23 = UA Turbidity) 3:37 AM) [facility] [id number] 08:37:00 Test Item Value Reference Range Interpretation Comments UA Spec Grav (test code = UA Spec 1.019 1 Grav) [facility] AND [id number] 08:37:00 Test Item Value Reference Range Interpretation Comments UA pH (test code = UA pH) 5.0 1 5.0-8.0 [facility] AND [id number] 08:37:00 Test Item Value Reference Range Interpretation Comments UA Protein (test code = UA Protein) 100 mg/dL [facility] AND [id number] 08:37:00 Test Item Value Reference Range Interpretation Comments UA Glucose (test code = UA Negative mg/dL Glucose) [facility] AND [id number] 08:37:00 Test Item Value Reference Range Interpretation Comments UA Ketones (test code = UA Negative mg/dL Ketones) [facility] AND [id number] 08:37:00 Test Item Value Reference Range Interpretation Comments UA Bili (test code = Negative *NA*(05/02/23 UA Bili) 3:37 AM) [facility] AND [id number] 08:37:00 Test Item Value Reference Range Interpretation Comments UA Blood (test code = Moderate *ABN*(05/02/23 UA Blood) 3:37 AM) [facility] AND [id number] 08:37:00 Test Item Value Reference Range Interpretation Comments UA Nitrite (test code Negative (05/02/23 3:37 = UA Nitrite) AM) [facility] AND [id number] 08:37:00 Test Item Value Reference Range Interpretation Comments UA Leuk Est (test code Large *ABN*(05/02/23 3:37 = UA Leuk Est) AM) [facility] AND [id number] 08:37:00 Test Item Value Reference Range Interpretation Comments UA Ascorbic Acid (test Negative 7*NA*(05/02/23 code = UA Ascorbic 3:37 AM) Acid) [facility] AND [id number] 08:37:00 Test Item Value Reference Range Interpretation Comments UA Sq Epi (test code = UA Sq Moderate /LPF Epi) [facility] AND [id number] 08:37:00 Test Item Value Reference Range Interpretation Comments UA WBC (test code = UA WBC) no gt <=5 [facility] AND [id number] 08:37:00 Test Item Value Reference Range Interpretation Comments UA RBC (test code = UA RBC) 20 <=2 [facility] AND [id number] 08:37:00 Test Item Value Reference Range Interpretation Comments UA Bacteria (test code = UA Many /HPF Bacteria) [facility] AND [id number] 08:37:00 Test Item Value Reference Range Interpretation Comments UA Hyal Cast (test code = UA Hyal Cast) 78 <=2 [facility] AND [id number] 08:37:00 Test Item Value Reference Range Interpretation Comments UA Chester Yeast (test code = UA Chester Many /HPF Yeast) [facility] AND [id number] 08:37:00 Test Item Value Reference Range Interpretation Comments UA Urobilinogen (test code = UA <=1.0 mg/dL 0.1-1.0 Urobilinogen) [facility] AND [id number] 08:37:00 Test Item Value Reference Range Interpretation Comments UA Color (test code = Yellow *NA*(05/02/23 3:37 UA Color) AM) [facility] AND [id number] 08:37:00 Test Item Value Reference Range Interpretation Comments UA Turbidity (test code Marked *ABN*(05/02/23 = UA Turbidity) 3:37 AM) [facility] AND [id number] 08:37:00 Test Item Value Reference Range Interpretation Comments UA Spec Grav (test code = UA Spec 1.019 1 Grav) [facility] AND [id number] 08:37:00 Test Item Value Reference Range Interpretation Comments UA pH (test code = UA pH) 5.0 1 5.0-8.0 [facility] AND [id number] 08:37:00 Test Item Value Reference Range Interpretation Comments UA Protein (test code = UA Protein) 100 mg/dL [facility] AND [id number] 08:37:00 Test Item Value Reference Range Interpretation Comments UA Glucose (test code = UA Negative mg/dL Glucose) [facility] AND [id number] 08:37:00 Test Item Value Reference Range Interpretation Comments UA Ketones (test code = UA Negative mg/dL Ketones) [facility] AND [id number] 08:37:00 Test Item Value Reference Range Interpretation Comments UA Bili (test code = Negative *NA*(05/02/23 UA Bili) 3:37 AM) [facility] [id number] 08:37:00 Test Item Value Reference Range Interpretation Comments UA Blood (test code = Moderate *ABN*(05/02/23 UA Blood) 3:37 AM) [facility] [id number] 08:37:00 Test Item Value Reference Range Interpretation Comments UA Nitrite (test code Negative (05/02/23 3:37 = UA Nitrite) AM) [facility] [id number] 08:37:00 Test Item Value Reference Range Interpretation Comments UA Leuk Est (test code Large *ABN*(05/02/23 3:37 = UA Leuk Est) AM) [facility] [id number] 08:37:00 Test Item Value Reference Range Interpretation Comments UA Ascorbic Acid (test Negative 7*NA*(05/02/23 code = UA Ascorbic 3:37 AM) Acid) [facility] [id number] 08:37:00 Test Item Value Reference Range Interpretation Comments UA Sq Epi (test code = UA Sq Moderate /LPF Epi) [facility] [id number] 08:37:00 Test Item Value Reference Range Interpretation Comments UA WBC (test code = UA WBC) no gt <=5 [facility] [id number] 08:37:00 Test Item Value Reference Range Interpretation Comments UA RBC (test code = UA RBC) 20 <=2 [facility] [id number] 08:37:00 Test Item Value Reference Range Interpretation Comments UA Bacteria (test code = UA Many /HPF Bacteria) [facility] [id number] 08:37:00 Test Item Value Reference Range Interpretation Comments UA Hyal Cast (test code = UA Hyal Cast) 78 <=2 [facility] [id number] 08:37:00 Test Item Value Reference Range Interpretation Comments UA Chester Yeast (test code = UA Chester Many /HPF Yeast) [facility] [id number] 08:37:00 Test Item Value Reference Range Interpretation Comments UA Urobilinogen (test code = UA <=1.0 mg/dL 0.1-1.0 Urobilinogen) [facility] [id number] 08:07:00 Test Item Value Reference Range Interpretation Comments FTI (test code = FTI) 2.3 1 [facility] [id number] 08:07:00 Test Item Value Reference Range Interpretation Comments Procalcitonin Lvl (test code = 0.46 <=0.10 Procalcitonin Lvl) [facility] [id number] 08:07:00 Test Item Value Reference Range Interpretation Comments Lactic Acid Lvl (test code = Lactic 1.0 0.5-2.2 Acid Lvl) [facility] [id number] 08:07:00 Test Item Value Reference Range Interpretation Comments Vitamin B12 Lvl (test code = Vitamin 072 [id number] B12 Lvl) [facility] [id number] 08:07:00 Test Item Value Reference Range Interpretation Comments Folate Lvl (test code = Folate Lvl) no gt [facility] [id number] 08:07:00 Test Item Value Reference Range Interpretation Comments T3 Uptake (test code = T3 Uptake) 39 31-39 [facility] [id number] 08:07:00 Test Item Value Reference Range Interpretation Comments T4 (test code = T4) 5.9 4.7-13.3 [facility] [id number] 08:07:00 Test Item Value Reference Range Interpretation Comments TSH (test code = TSH) 2.630 0.360-3.740 [facility] [id number] 08:07:00 Test Item Value Reference Range Interpretation Comments HIV Ag/Ab 4th Gen Negative 2*NA*(05/02/23 (test code = HIV 3:07 AM) Ag/Ab 4th Gen) [facility]: [id number] 08:07:00 Test Item Value Reference Range Interpretation Comments Culture: Blood (test code No Growth At 5 Days = Culture: Blood) [facility] [id number] 08:07:00 Test Item Value Reference Range Interpretation Comments Culture: Blood (test code No Growth At 5 Days = Culture: Blood) [facility] [id number] 08:07:00 Test Item Value Reference Range Interpretation Comments FTI (test code = FTI) 2.3 1 [facility] Hospi[id number] 08:07:00 Test Item Value Reference Range Interpretation Comments Procalcitonin Lvl (test code = 0.46 <=0.10 Procalcitonin Lvl) [facility] [id number] 08:07:00 Test Item Value Reference Range Interpretation Comments Lactic Acid Lvl (test code = Lactic 1.0 0.5-2.2 Acid Lvl) [facility] Ho[id number] 08:07:00 Test Item Value Reference Range Interpretation Comments Vitamin B12 Lvl (test code = Vitamin [phone] B12 Lvl) [facility] H[id number] 08:07:00 Test Item Value Reference Range Interpretation Comments Folate Lvl (test code = Folate Lvl) no gt [facility] Ho[id number] 08:07:00 Test Item Value Reference Range Interpretation Comments T3 Uptake (test code = T3 Uptake) 39 31-39 [place] [id number] 08:07:00 Test Item Value Reference Range Interpretation Comments T4 (test code = T4) 5.9 4.7-13.3 [facility] HospitalOdyedcbTRLEWARKF2497-03-73 08:07:00 Test Item Value Reference Range Interpretation Comments TSH (test code = TSH) 2.630 0.360-3.740 [facility] TylerJqefiobHMMNXKQHBC4862-08-20 08:07:00 Test Item Value Reference Range Interpretation Comments HIV Ag/Ab 4th Gen Negative 2*NA*(05/02/23 (test code = HIV 3:07 AM) Ag/Ab 4th Gen) [facility]: [id number] 08:07:00 Test Item Value Reference Range Interpretation Comments Culture: Blood (test code No Growth At 5 Days = Culture: Blood) [facility]: [id number] 08:07:00 Test Item Value Reference Range Interpretation Comments Culture: Blood (test code No Growth At 5 Days = Culture: Blood) [facility] HospitalMeodbnnNFSFRHAUG4063-23-17 08:07:00 Test Item Value Reference Range Interpretation Comments FTI (test code = FTI) 2.3 1 [facility] [id number] 08:07:00 Test Item Value Reference Range Interpretation Comments Procalcitonin Lvl (test code = 0.46 <=0.10 Procalcitonin Lvl) [facility] [id number] 08:07:00 Test Item Value Reference Range Interpretation Comments Lactic Acid Lvl (test code = Lactic 1.0 0.5-2.2 Acid Lvl) [facility] HospitalEjiegdfGBERKDCJS8211-20-54 08:07:00 Test Item Value Reference Range Interpretation Comments Vitamin B12 Lvl (test code = Vitamin 865 981-7196 B12 Lvl) [facility] HospitalXcvybfoZFTGCWRRQ2261-10-66 08:07:00 Test Item Value Reference Range Interpretation Comments Folate Lvl (test code = Folate Lvl) no gt [facility] HospitalTvaothpMZPYTUZIJ4122-16-19 08:07:00 Test Item Value Reference Range Interpretation Comments T3 Uptake (test code = T3 Uptake) 39 31-39 [facility] Ho[id number] 08:07:00 Test Item Value Reference Range Interpretation Comments T4 (test code = T4) 5.9 4.7-13.3 [facility] HospitalHffxpnlMZBZNBEZC6789-53-58 08:07:00 Test Item Value Reference Range Interpretation Comments TSH (test code = TSH) 2.630 0.360-3.740 [facility] TylerJnnasgwPTKOEWQFQY4311-08-91 08:07:00 Test Item Value Reference Range Interpretation Comments HIV Ag/Ab 4th Gen Negative 2*NA*(05/02/23 (test code = HIV 3:07 AM) Ag/Ab 4th Gen) [facility] [id number] 08:07:00 Test Item Value Reference Range Interpretation Comments Culture: Blood (test code No Growth At 5 Days = Culture: Blood) [facility]: [id number] 08:07:00 Test Item Value Reference Range Interpretation Comments Culture: Blood (test code No Growth At 5 Days = Culture: Blood) [facility] TylerItmpdyeGKIZSL9353-60-16 03:55:49 Test Item Value Reference Range Interpretation Comments RADRPT (test code Radiation Dose CTDIVOL = 0 = RADRPT) (mGy): DLP = 537.04 (mGy-cm)PROCEDURE INFORMATION: Exam: CT Abdomen And Pelvis Without Contrast Exam date and time: 05/01/2023 10:01 PM Age: 47 years old Clinical indication: /abd pain TECHNIQUE: Imaging protocol: Computed tomography of [...] prior 12 months: This patient has received 0 known CTs and 0 known cardiac nuclear medicine studies in the 12 months prior to the current study. COMPARISON: CHEST 1VIEW DX 05/01/2023 7:58 PM RADIATION DOSE METRICS: Total DLP (mGy-cm): 537.04 FINDINGS: Liver: Normal. No mass. Gallbladder and bile ducts: There are postsurgical changes from a cholecystectomy. Pancreas: Normal. No ductal dilation. Spleen: Normal. No splenomegaly. Adrenal glands: Normal. No mass. Kidneys and ureters: Normal. No hydronephrosis. There are no renal or ureteral stones. Stomach and bowel: Right lower quadrant ileostomy. There are bowel anastomoses present. There is a moderate amount of inflammatory changes within the fat in the lower anterior mid abdomen that measures 5.3 x 3.6 cm in size. This is immediately adjacent to the bowel anastomosis. Appendix: No evidence of appendicitis. Intraperitoneal space: See "Stomach and bowel" finding. Vasculature: Unremarkable. No abdominal aortic aneurysm. Lymph nodes: Unremarkable. No enlarged lymph nodes. Urinary bladder: Unremarkable as visualized. Reproductive: Unremarkable as visualized. Bones/joints: Unremarkable. No acute fracture. Soft tissues: Unremarkable. IMPRESSION: 1. Right ileostomy in place with multiple bowel anastomoses. 2. Moderate amount of inflammatory changes within the peritoneum of the anterior midline pelvis. This is immediately adjacent to a bowel anastomosis. This is likely postsurgical. The possibility of a small anastomotic breakdown is within the differential but felt to be less likely due to the fact there is no free air. 3. There is no other acute inflammatory process. There is no bowel obstruction. Elder Zuniga MD On 05/01/2023 22:54:42; [id number] [facility] TylerJyuhrvnCKHKWQ7930-86-61 03:55:49 Test Item Value Reference Range Interpretation Comments RADRPT (test code Radiation Dose CTDIVOL = 0 = RADRPT) (mGy): DLP = 537.04 (mGy-cm)PROCEDURE INFORMATION: Exam: CT Abdomen And Pelvis Without Contrast Exam date and time: 05/01/2023 10:01 PM Age: 47 years old Clinical indication: /abd pain TECHNIQUE: Imaging protocol: Computed tomography of [...] prior 12 months: This patient has received 0 known CTs and 0 known cardiac nuclear medicine studies in the 12 months prior to the current study. COMPARISON: CHEST 1VIEW DX 05/01/2023 7:58 PM RADIATION DOSE METRICS: Total DLP (mGy-cm): 537.04 FINDINGS: Liver: Normal. No mass. Gallbladder and bile ducts: There are postsurgical changes from a cholecystectomy. Pancreas: Normal. No ductal dilation. Spleen: Normal. No splenomegaly. Adrenal glands: Normal. No mass. Kidneys and ureters: Normal. No hydronephrosis. There are no renal or ureteral stones. Stomach and bowel: Right lower quadrant ileostomy. There are bowel anastomoses present. There is a moderate amount of inflammatory changes within the fat in the lower anterior mid abdomen that measures 5.3 x 3.6 cm in size. This is immediately adjacent to the bowel anastomosis. Appendix: No evidence of appendicitis. Intraperitoneal space: See "Stomach and bowel" finding. Vasculature: Unremarkable. No abdominal aortic aneurysm. Lymph nodes: Unremarkable. No enlarged lymph nodes. Urinary bladder: Unremarkable as visualized. Reproductive: Unremarkable as visualized. Bones/joints: Unremarkable. No acute fracture. Soft tissues: Unremarkable. IMPRESSION: 1. Right ileostomy in place with multiple bowel anastomoses. 2. Moderate amount of inflammatory changes within the peritoneum of the anterior midline pelvis. This is immediately adjacent to a bowel anastomosis. This is likely postsurgical. The possibility of a small anastomotic breakdown is within the differential but felt to be less likely due to the fact there is no free air. 3. There is no other acute inflammatory process. There is no bowel obstruction. Elder Zuniga MD On 05/01/2023 22:54:42; [id number] [facility] TylerQiqbpzgPAWKQE3624-16-17 03:55:49 Test Item Value Reference Range Interpretation Comments RADRPT (test code Radiation Dose CTDIVOL = 0 = RADRPT) (mGy): DLP = 537.04 (mGy-cm)PROCEDURE INFORMATION: Exam: CT Abdomen And Pelvis Without Contrast Exam date and time: 05/01/2023 10:01 PM Age: 47 years old Clinical indication: /abd pain TECHNIQUE: Imaging protocol: Computed tomography of [...] prior 12 months: This patient has received 0 known CTs and 0 known cardiac nuclear medicine studies in the 12 months prior to the current study. COMPARISON: CHEST 1VIEW DX 05/01/2023 7:58 PM RADIATION DOSE METRICS: Total DLP (mGy-cm): 537.04 FINDINGS: Liver: Normal. No mass. Gallbladder and bile ducts: There are postsurgical changes from a cholecystectomy. Pancreas: Normal. No ductal dilation. Spleen: Normal. No splenomegaly. Adrenal glands: Normal. No mass. Kidneys and ureters: Normal. No hydronephrosis. There are no renal or ureteral stones. Stomach and bowel: Right lower quadrant ileostomy. There are bowel anastomoses present. There is a moderate amount of inflammatory changes within the fat in the lower anterior mid abdomen that measures 5.3 x 3.6 cm in size. This is immediately adjacent to the bowel anastomosis. Appendix: No evidence of appendicitis. Intraperitoneal space: See "Stomach and bowel" finding. Vasculature: Unremarkable. No abdominal aortic aneurysm. Lymph nodes: Unremarkable. No enlarged lymph nodes. Urinary bladder: Unremarkable as visualized. Reproductive: Unremarkable as visualized. Bones/joints: Unremarkable. No acute fracture. Soft tissues: Unremarkable. IMPRESSION: 1. Right ileostomy in place with multiple bowel anastomoses. 2. Moderate amount of inflammatory changes within the peritoneum of the anterior midline pelvis. This is immediately adjacent to a bowel anastomosis. This is likely postsurgical. The possibility of a small anastomotic breakdown is within the differential but felt to be less likely due to the fact there is no free air. 3. There is no other acute inflammatory process. There is no bowel obstruction. Elder Zuniga MD On 05/01/2023 22:54:42; [id number] [facility] TylerNjjxkgaBQPHMO9052-51-86 03:52:03 Test Item Value Reference Range Interpretation Comments RADRPT (test code Radiation Dose CTDIVOL = 0 = RADRPT) (mGy): DLP = 1073.9 (mGy-cm)PROCEDURE INFORMATION: Exam: CT Head Without Contrast Exam date and time: 05/01/2023 9:59 PM Age: 47 years old Clinical indication: /ams TECHNIQUE: Imaging protocol: Computed tomography of the head without contrast. Radiation optimization: All CT scans at this facility use at least one of these dose optimization techniques: automated exposure control; mA and/or kV adjustment per patient size (includes targeted exams where dose is matched to clinical indication); or iterative reconstruction. REPORTING DATA: Count of CT and Cardiac NM exams in prior 12 months: This patient has received 0 known CTs and 0 known cardiac nuclear medicine studies in the 12 months prior to the current study. COMPARISON: No relevant prior studies available. RADIATION DOSE METRICS: Total DLP (mGy-cm): 1073.9 FINDINGS: Brain: Periventricular and subcortical hypodensities are noted, consistent with sequelae of chronic microvascular ischemia. Diffuse cerebral atrophy is noted, appropiate for age. No acute intracranial hemorrhage is seen. Cerebral ventricles: Ex vacuo dilation of the ventricular system is noted. Paranasal sinuses: Visualized sinuses are unremarkable. No fluid levels. Mastoid air cells: Visualized mastoid air cells are well aerated. Bones/joints: Unremarkable. No acute fracture. Soft tissues: Unremarkable. IMPRESSION: 1. No acute intracranial abnormalities are seen. 2. Generalized parenchymal involution changes and chronic microangiopathic ischemic changes of white matter. Almaz De La Rosa MD On 05/01/2023 22:50:53; [id number] [facility] TylerZsdlgwgDGJIHY7948-28-35 03:52:03 Test Item Value Reference Range Interpretation Comments RADRPT (test code Radiation Dose CTDIVOL = 0 = RADRPT) (mGy): DLP = 1073.9 (mGy-cm)PROCEDURE INFORMATION: Exam: CT Head Without Contrast Exam date and time: 05/01/2023 9:59 PM Age: 47 years old Clinical indication: /ams TECHNIQUE: Imaging protocol: Computed tomography of the head without contrast. Radiation optimization: All CT scans at this facility use at least one of these dose optimization techniques: automated exposure control; mA and/or kV adjustment per patient size (includes targeted exams where dose is matched to clinical indication); or iterative reconstruction. REPORTING DATA: Count of CT and Cardiac NM exams in prior 12 months: This patient has received 0 known CTs and 0 known cardiac nuclear medicine studies in the 12 months prior to the current study. COMPARISON: No relevant prior studies available. RADIATION DOSE METRICS: Total DLP (mGy-cm): 1073.9 FINDINGS: Brain: Periventricular and subcortical hypodensities are noted, consistent with sequelae of chronic microvascular ischemia. Diffuse cerebral atrophy is noted, appropiate for age. No acute intracranial hemorrhage is seen. Cerebral ventricles: Ex vacuo dilation of the ventricular system is noted. Paranasal sinuses: Visualized sinuses are unremarkable. No fluid levels. Mastoid air cells: Visualized mastoid air cells are well aerated. Bones/joints: Unremarkable. No acute fracture. Soft tissues: Unremarkable. IMPRESSION: 1. No acute intracranial abnormalities are seen. 2. Generalized parenchymal involution changes and chronic microangiopathic ischemic changes of white matter. Almaz De La Rosa MD On 05/01/2023 22:50:53; [id number] [facility]VA1704[facility]-86 03:52:03 Test Item Value Reference Range Interpretation Comments RADRPT (test code Radiation Dose CTDIVOL = 0 = RADRPT) (mGy): DLP = 1073.9 (mGy-cm)PROCEDURE INFORMATION: Exam: CT Head Without Contrast Exam date and time: 05/01/2023 9:59 PM Age: 47 years old Clinical indication: /ams TECHNIQUE: Imaging protocol: Computed tomography of the head without contrast. Radiation optimization: All CT scans at this facility use at least one of these dose optimization techniques: automated exposure control; mA and/or kV adjustment per patient size (includes targeted exams where dose is matched to clinical indication); or iterative reconstruction. REPORTING DATA: Count of CT and Cardiac NM exams in prior 12 months: This patient has received 0 known CTs and 0 known cardiac nuclear medicine studies in the 12 months prior to the current study. COMPARISON: No relevant prior studies available. RADIATION DOSE METRICS: Total DLP (mGy-cm): 1073.9 FINDINGS: Brain: Periventricular and subcortical hypodensities are noted, consistent with sequelae of chronic microvascular ischemia. Diffuse cerebral atrophy is noted, appropiate for age. No acute intracranial hemorrhage is seen. Cerebral ventricles: Ex vacuo dilation of the ventricular system is noted. Paranasal sinuses: Visualized sinuses are unremarkable. No fluid levels. Mastoid air cells: Visualized mastoid air cells are well aerated. Bones/joints: Unremarkable. No acute fracture. Soft tissues: Unremarkable. IMPRESSION: 1. No acute intracranial abnormalities are seen. 2. Generalized parenchymal involution changes and chronic microangiopathic ischemic changes of white matter. Almaz De La Rosa MD On 05/01/2023 22:50:53; [id number] [facility]HhplakfKJUABH3261-06-30 03:38:18 Test Item Value Reference Range Interpretation Comments RADRPT (test code = PROCEDURE INFORMATION: RADRPT) Exam: XR Chest Exam date and time: 05/01/2023 7:58 PM Age: 47 years old Clinical indication: /ams TECHNIQUE: Imaging protocol: Radiologic exam of the chest. Views: 1 view. COMPARISON: No relevant prior studies available. FINDINGS: Lungs: Opacity is in the left lung base in the retrocardiac region. Pleural spaces: Unremarkable. No pleural effusion. No pneumothorax. Heart/Mediastinum: The cardiac silhouette is normal in caliber. The aorta is unremarkable. Bones/joints: Unremarkable. IMPRESSION: Left basilar opacity concerning for a lower lobe infiltrate. Michelle Lepe MD On 05/01/2023 22:37:02; [id number] [facility] TylerCswbdrjTPJDAQ8753-36-67 03:38:18 Test Item Value Reference Range Interpretation Comments RADRPT (test code = PROCEDURE INFORMATION: RADRPT) Exam: XR Chest Exam date and time: 05/01/2023 7:58 PM Age: 47 years old Clinical indication: /ams TECHNIQUE: Imaging protocol: Radiologic exam of the chest. Views: 1 view. COMPARISON: No relevant prior studies available. FINDINGS: Lungs: Opacity is in the left lung base in the retrocardiac region. Pleural spaces: Unremarkable. No pleural effusion. No pneumothorax. Heart/Mediastinum: The cardiac silhouette is normal in caliber. The aorta is unremarkable. Bones/joints: Unremarkable. IMPRESSION: Left basilar opacity concerning for a lower lobe infiltrate. Michelle Lepe MD On 05/01/2023 22:37:02; [id number] [facility] TylerJugyjexUBSANX6474-17-96 03:38:18 Test Item Value Reference Range Interpretation Comments RADRPT (test code = PROCEDURE INFORMATION: RADRPT) Exam: XR Chest Exam date and time: 05/01/2023 7:58 PM Age: 47 years old Clinical indication: /ams TECHNIQUE: Imaging protocol: Radiologic exam of the chest. Views: 1 view. COMPARISON: No relevant prior studies available. FINDINGS: Lungs: Opacity is in the left lung base in the retrocardiac region. Pleural spaces: Unremarkable. No pleural effusion. No pneumothorax. Heart/Mediastinum: The cardiac silhouette is normal in caliber. The aorta is unremarkable. Bones/joints: Unremarkable. IMPRESSION: Left basilar opacity concerning for a lower lobe infiltrate. Michelle Lepe MD On 05/01/2023 22:37:02; [id number] [facility]edtubtAKOZPZYCC5658-05-53 02:17:26 Test Item Value Reference Range Interpretation Comments S Preg (test code = S Negative *NA*(05/01/23 Preg) 9:17 PM) [facility]XeigwfvTOZYVAGUQ5529-43-60 02:17:26 Test Item Value Reference Range Interpretation Comments S Preg (test code = S Negative *NA*(05/01/23 Preg) 9:17 PM) [facility] HospitalCaqokozSCDICRAPJ4326-72-63 02:17:26 Test Item Value Reference Range Interpretation Comments S Preg (test code = S Negative *NA*(05/01/23 Preg) 9:17 PM) [facility] HospitalQkiyztaMWALTGZGC5322-38-01 00:57:00 Test Item Value Reference Range Interpretation Comments Total Protein (test code = Total 6.2 6.4-8.4 Protein) [facility] HospitalRaslgtxUUBEDWUXE6159-10-05 00:57:00 Test Item Value Reference Range Interpretation Comments Albumin Lvl (test code = Albumin Lvl) 2.9 3.5-5.0 [facility] HospitalRzhlacrDVFFQJHOE6105-51-69 00:57:00 Test Item Value Reference Range Interpretation Comments ALT (test code = ALT) 33 <=65 [facility] HospitalXgjtjmuFUYSSDSIU1840-10-60 00:57:00 Test Item Value Reference Range Interpretation Comments AST (test code = AST) 33 <=37 [facility] HospitalTmhraqsZNOLXOHMN3940-01-72 00:57:00 Test Item Value Reference Range Interpretation Comments Alk Phos (test code = Alk Phos) 331 39-136 [facility] HospitalFyrtoetRYPPDSXIG2970-29-01 00:57:00 Test Item Value Reference Range Interpretation Comments Bili Total (test code = Bili Total) 0.6 0.2-1.3 [facility] HospitalYrwzexiRLHANRIYF2032-67-63 00:57:00 Test Item Value Reference Range Interpretation Comments B/C Ratio (test code = B/C Ratio) 7 1 6-25 [facility] HospitalYfqvkxvYORQLNPWZ6185-33-72 00:57:00 Test Item Value Reference Range Interpretation Comments Globulin (test code = Globulin) 3.3 2.7-4.2 [facility] HospitalJvnmdfoTVWDRJWBP6165-31-49 00:57:00 Test Item Value Reference Range Interpretation Comments A/G Ratio (test code = A/G Ratio) 0.9 1 0.7-1.6 [facility] HospitalSmkdafaLTGHMLRQZ0703-04-96 00:57:00 Test Item Value Reference Range Interpretation Comments Ammonia (test code = Ammonia) 41.0 [facility] HospitalUdwcjmtRCXSZOIXP7409-73-19 00:57:00 Test Item Value Reference Range Interpretation Comments Acetaminoph Lvl (test code = 2 10-20 Acetaminoph Lvl) [facility] HospitalQhjtlcvWVNUUCVGK5536-21-79 00:57:00 Test Item Value Reference Range Interpretation Comments Salicylate Lvl (test code = Salicylate no gt <=30.0 Lvl) [facility] HospitalNeblizqASXLXDCNN1380-79-81 00:57:00 Test Item Value Reference Range Interpretation Comments Total Protein (test code = Total 6.2 6.4-8.4 Protein) [facility] HospitalSjnotgaEZNFZDMWU7994-52-73 00:57:00 Test Item Value Reference Range Interpretation Comments Albumin Lvl (test code = Albumin Lvl) 2.9 3.5-5.0 [facility] HospitalSbtxqzpIKZQOLYCM0909-29-52 00:57:00 Test Item Value Reference Range Interpretation Comments ALT (test code = ALT) 33 <=65 [facility] HospitalJmhwgyzTDUUJDTDM3769-72-34 00:57:00 Test Item Value Reference Range Interpretation Comments AST (test code = AST) 33 <=37 [place] 394853-08-07 00:57:00 Test Item Value Reference Range Interpretation Comments Alk Phos (test code = Alk Phos) 331 39-136 [facility] HospitalRiqwvbdDZGYDSLAR2565-66-76 00:57:00 Test Item Value Reference Range Interpretation Comments Bili Total (test code = Bili Total) 0.6 0.2-1.3 [facility] HospitalHetcpbmTJKKTZCWT7194-93-18 00:57:00 Test Item Value Reference Range Interpretation Comments B/C Ratio (test code = B/C Ratio) 7 1 6-25 [facility] HospitalAltopuhODSOVNZMF7279-21-20 00:57:00 Test Item Value Reference Range Interpretation Comments Globulin (test code = Globulin) 3.3 2.7-4.2 [facility] HospitalZtufgisPALACALNM1957-38-65 00:57:00 Test Item Value Reference Range Interpretation Comments A/G Ratio (test code = A/G Ratio) 0.9 1 0.7-1.6 [facility] HospitalFokhqcpMSVGPIYRN9293-50-81 00:57:00 Test Item Value Reference Range Interpretation Comments Ammonia (test code = Ammonia) 41.0 [facility] HospitalHfydguoBLFPCBRBM8412-40-65 00:57:00 Test Item Value Reference Range Interpretation Comments Acetaminoph Lvl (test code = 2 10-20 Acetaminoph Lvl) [facility] HospitalUxyrcewRVODBVNHM1799-54-69 00:57:00 Test Item Value Reference Range Interpretation Comments Salicylate Lvl (test code = Salicylate no gt <=30.0 Lvl) [facility] HospitalDpeefteTJXVFHZML4297-96-64 00:57:00 Test Item Value Reference Range Interpretation Comments Total Protein (test code = Total 6.2 6.4-8.4 Protein) [facility] HospitalNjhiirhNQOVCDSUT0981-58-83 00:57:00 Test Item Value Reference Range Interpretation Comments Albumin Lvl (test code = Albumin Lvl) 2.9 3.5-5.0 [facility] HospitalBrwlvzoMLUBXTPRB6611-26-00 00:57:00 Test Item Value Reference Range Interpretation Comments ALT (test code = ALT) 33 <=65 [facility] HospitalAqtwdykFSNKQUHQB2349-99-41 00:57:00 Test Item Value Reference Range Interpretation Comments AST (test code = AST) 33 <=37 [facility] HospitalQlsndwuWGTEOCHBS6970-30-82 00:57:00 Test Item Value Reference Range Interpretation Comments Alk Phos (test code = Alk Phos) 331 39-136 [facility] HospitalDzemryoKWHUAMBFC4364-86-81 00:57:00 Test Item Value Reference Range Interpretation Comments Bili Total (test code = Bili Total) 0.6 0.2-1.3 [facility] HospitalTsoxubtMHJBETKHM8077-35-40 00:57:00 Test Item Value Reference Range Interpretation Comments B/C Ratio (test code = B/C Ratio) 7 1 6-25 [place] [address]-08-07 00:57:00 Test Item Value Reference Range Interpretation Comments Globulin (test code = Globulin) 3.3 2.7-4.2 [place] [address]-08-07 00:57:00 Test Item Value Reference Range Interpretation Comments A/G Ratio (test code = A/G Ratio) 0.9 1 0.7-1.6 [facility] HospitalOteccvmHBMPRTAUW0000-43-12 00:57:00 Test Item Value Reference Range Interpretation Comments Ammonia (test code = Ammonia) 41.0 [place] [address]-08-07 00:57:00 Test Item Value Reference Range Interpretation Comments Acetaminoph Lvl (test code = 2 10-20 Acetaminoph Lvl) [facility] HospitalCtpdgzvHZTQCGOPN9528-11-22 00:57:00 Test Item Value Reference Range Interpretation Comments Salicylate Lvl (test code = Salicylate no gt <=30.0 Lvl) [facility] TylerGLUCOSE HCCCQGF3364-24-51 07:59:00 Test Item Value Reference Range Interpretation Comments GLUCOSE BEDSIDE (test 82 MG/DL 70-110 N Perfor med by certified code = GLUBED) drill 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 [facility] CBC W/AUTO [id number] 07:55:00 Test Item Value Reference Range Interpretation [...] (test code NO = MDIFF) BASIC METABOLIC [id number] 07:52:00 Test Item Value Reference Range Interpretation [...] 8.9 mg/dL 8.0-10.5 N CA) COMPREHENSIVE METABOLIC [id number] 08:32:00 Test Item Value Reference Range Interpretation Comments SODIUM (test code = 136 mEq/L 134-147 N NA) POTASSIUM (test code 2.9 mEq/L 3.4-5.0 LL Critica l result called = K) to [place] [facility] at 05 2604/26/23Nrashard grullon ead back resut and tech confirmed it's [...] recommended for sudhir for GFRby the N [facility] for [facility].The GFR will [...] TOTAL (test code = ALKP) CBC W/AUTO [id number] 08:18:00 Test Item Value Reference Range Interpretation [...] 0.00 x10 3/uL 0.0-0.1 N NRBC#) GLUCOSE [id number] 07:59:00 Test Item Value Reference Range Interpretation Comments GLUCOSE BEDSIDE (test 79 MG/DL 70-110 N Perfor med by certified code = GLUBED) drill 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 [facility] - [place] GASTRIC [id number] 00:00:00 [facility] : 1975 Sex: F FAX: Lelia Meyer DO [phone] [place]iley: St: [facility] FAX: Adriana Perkins Name: LIZBET RAHMAN [facility] : 1975 Age/S: 47/F [address] [place] [address] Unit #: [id number] Loc: G.[address] [place] [id number] Phys: Adriana Leiva ch Acct: [id number] Dis Date: Status: ADM IN PHONE #: [phone] Exam Date: 04/26/2023 1002 FAX #: [phone] Reason: N/V; poor oral intake; r/o gastroparesis EXAMS: CPT CODE: [id number] [place] GASTRIC EMPTYING [id number] PROCEDURE INFORMATION: Exam: NM Gastric emptying Exam date and time: 04/26/2023 10:00 AM Age: 47 years old Clinical [...] Adriana CABELLO Technologist: KEVON Rogel (N)(CT); ... TrnscrdDate/Time/By: 04/26/2023 (1011) : By: [email or web address] Orig Print D/T: S: 04/26/2023 (1011) PAGE 1 Signed ReportGLUCOSE [id number] 16:14:00 Test Item Value Reference Range Interpretation Comments GLUCOSE BEDSIDE (test 98 MG/DL 70-110 N Perfor med by certified code = GLUBED) drill 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 [facility] GLUCOSE [id number] 11:51:00 Test Item Value Reference Range Interpretation Comments GLUCOSE BEDSIDE (test 89 MG/DL 70-110 N Perfor med by certified code = GLUBED) drill 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 [facility] GLUCOSE [id number] 08:04:00 Test Item Value Reference Range Interpretation Comments GLUCOSE BEDSIDE (test 69 MG/DL 70-110 L Perfor med by certified code = GLUBED) drill 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 [facility] COMPREHENSIVE METABOLIC [id number] 08:03:00 Test Item Value Reference Range Interpretation [...] recommended for sudhir for GFRby the N [facility].The GFR will [...] TOTAL (test code = ALKP) CBC W/AUTO [id number] 07:57:00 Test Item Value Reference Range Interpretation [...] REQUIRED (test code NO = MDIFF) GLUCOSE [id number] 20:03:00 Test Item Value Reference Range Interpretation Comments GLUCOSE BEDSIDE (test 89 MG/DL 70-110 N Perfor med by certified code = GLUBED) drill 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 [facility] GLUCOSE [id number] 17:31:00 Test Item Value Reference Range Interpretation Comments GLUCOSE BEDSIDE (test 70 MG/DL 70-110 N [facility] med by certified code = GLUBED) drill 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 [facility] GLUCOSE [id number] 12:26:00 Test Item Value Reference Range Interpretation Comments GLUCOSE BEDSIDE (test 79 MG/DL 70-110 N [facility] med by certified code = GLUBED) drill 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 [facility] CBC W/AUTO [id number] 08:53:00 Test Item Value Reference Range Interpretation [...] REQUIRED (test code NO = MDIFF) GLUCOSE [id number] 08:03:00 Test Item Value Reference Range Interpretation Comments GLUCOSE BEDSIDE (test 72 MG/DL 70-110 N [facility] med by certified code = GLUBED) drill 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 [facility] COMPREHENSIVE METABOLIC [id number] 07:35:00 Test Item Value Reference Range Interpretation [...] recommended for sudhir for GFRby the [facility] Ad[facility].The GFR will [...] H TOTAL (test code = ALKP) GLUCOSE [id number] 21:02:00 Test Item Value Reference Range Interpretation Comments GLUCOSE BEDSIDE (test 87 MG/DL 70-110 N [facility] med by certified code = GLUBED) drill 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 [facility] GLUCOSE [id number] 17:27:00 Test Item Value Reference Range Interpretation Comments GLUCOSE BEDSIDE (test 80 MG/DL 70-110 N [facility] med by certified code = GLUBED) drill 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 [facility] GLUCOSE [id number] 11:39:00 Test Item Value Reference Range Interpretation Comments GLUCOSE BEDSIDE (test 80 MG/DL 70-110 N Per[facility] med by certified code = GLUBED) drill 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 [facility] COMPREHENSIVE METABOLIC [id number] 08:20:00 Test Item Value Reference Range Interpretation [...] recommended for sudhir for GFRby the [facility].The GFR will [...] TOTAL (test code = ALKP) CBC W/AUTO [id number] 07:23:00 Test Item Value Reference Range Interpretation [...] (test code NO = MDIFF) CBC W/AUTO [id number] 11:52:00 Test Item Value Reference Range Interpretation [...] (test code NO = MDIFF) COMPREHENSIVE METABOLIC [id number] 09:08:00 Test Item Value Reference Range Interpretation [...] for GFRby the [facility] for Adults.The GFR [...] H TOTAL (test code = ALKP) LACTIC [id number] 15:57:00 Test Item Value Reference Range Interpretation Comments LACTIC ACID (test code = LACT) 1.5 mmol/L 0.4-1.9 N BASIC METABOLIC [id number] 12:41:00 Test Item Value Reference Range Interpretation [...] the recommended for sudhir for GFRby the [facility] for Adults.The GFR will not calculate if th e sex is unknown or if thepatient's ag e is <18 years. CREATININE (test 5.0 mg/dL 0.6-1.3 H code = CREAT) CALCIUM (test code = 9.1 mg/dL 8.0-10.5 N CA) HEPATIC FUNCTION [id number] 12:41:00 Test Item Value Reference Range Interpretation [...] 500 IUnit/L 20-125 H code = ALKP) [id number] 12:41:00 Test Item Value Reference Range Interpretation Comments LIPASE (test code = LIP) 48 U/L 13-57 N UA RFLX MICR CULT IF [id number] 12:30:00 Test Item Value Reference Range Interpretation [...] culture: Suprapubic PainSpecimen Description: CLEAN CATCHCBC W/AUTO [id number] 12:19:00 Test Item Value Reference Range Interpretation [...] MANUAL DIFF REQUIRED (test code NO = ZOYA) - CT ABD PELVIS W/O [id number] 00:00:00 [facility] 1975 Sex: F Name: LIZBET RAHMAN [facility] : 1975 Age/S: 47 / F [address] [place] [address] Unit #: [id number] Loc: [place] [address] Phys: An Wong MD Acct: [id number] Dis Date: Status: REG ER PHONE #: [phone] Exam Date: 04/21/2023 1102 FAX #: [phone] Reason: abdominal pain EXAMS:CPT CODE: [id number] CT ABD PELVIS W/O CONT 55157 PROCEDURE INFORMATION: Exam: CT Abdomen And PelvisWithout Contrast Exam date and time: 04/21/2023 11:02 AM Age: 47 years old Clinical indication: Abdominal pain TECHNIQUE: Imaging protocol: Computed tomography of the abdomen and pelvis without contrast. Radiation optimization: All CT scans at this facility use at least one of these dose optimization t echniques: automated exposure control; mA and/or kV adjustment [...] postsurgical changes from cholecystectomy. Pancreas: Within normal limits for noncontrast technique. No ductal dilation. Spleen: Within normal limits for noncontrast technique. No splenomegaly. Adrenal glands: Normal. No mass. Kidneys and ureters: No hydronephrosisor hydroureter. No renal or ureteral calculi. Stomach and [...] abdominal aortic aneurysm. Lymph nodes: No enlarged lymphnodes. Urinary bladder: Capone catheter within the urinary bladder. Reproductive: Unremarkable as visualized. Bones/joints: Diffuse bony demineralization. Dextroscoliosis of the lumbar spine. Mild hypertrophic changes within the spine. Soft tissues: Midline abdominal incision scar. PAGE 1 Signed Report (CONTINUED) Name: LIZBET RAHMAN [facility] : 1975 Age/S: 47 / F [address] [place] [address] Unit #: [id number] Loc: [place] [address] Phys: An Wong MD Acct: [id number] Dis Date: Status: [facility] ER PHONE #: [phone] Exam Date: 04/21/2023 1102 FAX #: [phone] Reason: abdominal pain EXAMS: CPT CODE: [id number] CT ABD PELVIS W/O CONT 97607 (Continued) IMPRESSION: 1. Again seen moderate amount of inflammatory changes along the omentum anteriorly and inferiorly, which may represent omental infarct and/or phlegmonous changes. No encapsulated collection to suggest abscess. 2. 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 No evidence of bowel obstruction. 3. Cholecystectomy. at 1150 Reported and signed by: Micah Berrios M.D. CC: An Wong MD Technologist:Navi Rose RT(R)(CT); Cherelle CTDI: DLP: Trnscb Date/Time: 04/21/2023 (5133) FlorenceR.[email or web address] PAGE 2 Signed ReportGLUCOSE [id number] 16:15:00 Test Item Value Reference Range Interpretation Comments GLUCOSE BEDSIDE (test 103 MG/DL 70-110 N [facility] med by certified code = GLUBED) drill 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 [facility] GLUCOSE [id number] 11:45:00 Test Item Value Reference Range Interpretation Comments GLUCOSE BEDSIDE (test 92 MG/DL 70-110 N Per[facility] med by certified code = GLUBED) drill 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 [facility] BASIC METABOLIC [id number] 09:03:00 Test Item Value Reference Range Interpretation [...] code = 9.7 mg/dL 8.0-10.5 N CA) [id number] 09:03:00 Test Item Value Reference Range Interpretation Comments MAGNESIUM (test code = MAG) 2.08 mg/dL 1.80-2.40 N GLUCOSE [id number] 08:29:00 Test Item Value Reference Range Interpretation Comments GLUCOSE BEDSIDE (test 73 MG/DL 70-110 N [facility] med by certified code = GLUBED) drill 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 [facility] CBC W/AUTO [id number] 07:42:00 Test Item Value Reference Range Interpretation [...] REQUIRED (test code NO = MDIFF) GLUCOSE [id number] 21:26:00 Test Item Value Reference Range Interpretation Comments GLUCOSE BEDSIDE (test 81 MG/DL 70-110 N [facility] med by certified code = GLUBED) drill 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 [facility] GLUCOSE [id number] 15:53:00 Test Item Value Reference Range Interpretation Comments GLUCOSE BEDSIDE (test 101 MG/DL 70-110 N [facility] med by certified code = GLUBED) drill 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 [facility] GLUCOSE [id number] 11:30:00 Test Item Value Reference Range Interpretation Comments GLUCOSE BEDSIDE (test 105 MG/DL 70-110 N [facility] med by certified code = GLUBED) drill 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 [facility] GLUCOSE [id number] 08:59:00 Test Item Value Reference Range Interpretation Comments GLUCOSE BEDSIDE (test 79 MG/DL 70-110 N [facility] med by certified code = GLUBED) drill 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 [facility] GLUCOSE [id number] 20:45:00 Test Item Value Reference Range Interpretation Comments GLUCOSE BEDSIDE (test 89 MG/DL 70-110 N Per[facility] med by certified code = GLUBED) drill 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 [facility] GLUCOSE [id number] 16:54:00 Test Item Value Reference Range Interpretation Comments GLUCOSE BEDSIDE (test 87 MG/DL 70-110 N [facility] med by certified code = GLUBED) drill 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 [facility] GLUCOSE [id number] 12:04:00 Test Item Value Reference Range Interpretation Comments GLUCOSE BEDSIDE (test 68 MG/DL 70-110 L [facility] med by certified code = GLUBED) drill 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 [facility] CBC W/AUTO [id number] 08:01:00 Test Item Value Reference Range Interpretation [...] (test code NO = MDIFF) BASIC METABOLIC [id number] 07:48:00 Test Item Value Reference Range Interpretation [...] code = 9.7 mg/dL 8.0-10.5 N CA) [id number] 07:48:00 Test Item Value Reference Range Interpretation Comments MAGNESIUM (test code = MAG) 1.60 mg/dL 1.80-2.40 L GLUCOSE [id number] 22:02:00 Test Item Value Reference Range Interpretation Comments GLUCOSE BEDSIDE (test 92 MG/DL 70-110 N [facility] med by certified code = GLUBED) drill 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 [facility] GLUCOSE [id number] 15:55:00 Test Item Value Reference Range Interpretation Comments GLUCOSE BEDSIDE (test 82 MG/DL 70-110 N Per[facility] med by certified code = GLUBED) drill 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 [facility] GLUCOSE [id number] 12:06:00 Test Item Value Reference Range Interpretation Comments GLUCOSE BEDSIDE (test 92 MG/DL 70-110 N Per[facility] med by certified code = GLUBED) drill 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 [facility] GLUCOSE [id number] 08:09:00 Test Item Value Reference Range Interpretation Comments GLUCOSE BEDSIDE (test 70 MG/DL 70-110 N Per[facility] med by certified code = GLUBED) drill 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 [facility] GLUCOSE [id number] 01:02:00 Test Item Value Reference Range Interpretation Comments GLUCOSE BEDSIDE (test 71 MG/DL 70-110 N Per[facility] med by certified code = GLUBED) drill 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 [facility] GLUCOSE [id number] 00:27:00 Test Item Value Reference Range Interpretation Comments GLUCOSE BEDSIDE (test 68 MG/DL 70-110 L Perfor med by certified code = GLUBED) drill 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 [facility] - XR ABDOMEN 1V (KUB)2023-03-28 00:00:00 [facility] : 1975 Sex: F FAX: Yesika Jacob MD [phone] Smiley: St: ADM FAX: Dunia Galvin NP [phone] --------- Name: LIZBET RAHMAN [facility] : 1975 Age/S: 47/F [address] [place] [address] Unit #: [id number] Loc: G.66[address] [place] [address] Phys: Dunia Coker PARTS DEPARTMENT SUPERVISOR Acct: [id number] Dis Date: Status: ADM IN PHONE #: [phone] Exam Date: 03/28/2023 1326 FAX #: [phone] Reason: Persistent nausea EXAMS: CPT CODE: [id number] XRABDOMEN 1V (KUB) 68364 PROCEDURE INFORMATION: Exam: XR Abdomen Exam date [...] Yesika Luo MD; Dunia Coker NP Technologist: RT Deny(Yadi) Trnscrd Date/Time/By: 03/28/2023 (141) : By: [email or web address] Orig Print D/T: S: 03/28/2023 (141) PAGE 1 Signed ReportGLUCOSE BEDSIDE 2023-03-27 21:07:00 Test Item Value Reference Range Interpretation Comments GLUCOSE BEDSIDE (test 66 MG/DL 70-110 L [facility] med by certified code = GLUBED) drill 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 [facility] GLUCOSE [id number] 17:18:00 Test Item Value Reference Range Interpretation Comments GLUCOSE BEDSIDE (test 87 MG/DL 70-110 N Per[facility] med by certified code = GLUBED) drill 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 [facility] GLUCOSE [id number] 11:30:00 Test Item Value Reference Range Interpretation Comments GLUCOSE BEDSIDE (test 82 MG/DL 70-110 N Per[facility] med by certified code = GLUBED) drill 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 [facility] GLUCOSE [id number] 08:21:00 Test Item Value Reference Range Interpretation Comments GLUCOSE BEDSIDE (test 73 MG/DL 70-110 N Perfor med by certified code = GLUBED) drill 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 [facility] GLUCOSE [id number] 00:33:00 Test Item Value Reference Range Interpretation Comments GLUCOSE BEDSIDE (test 90 MG/DL 70-110 N Perfor med by certified code = GLUBED) drill 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 [facility] GLUCOSE [id number] 16:52:00 Test Item Value Reference Range Interpretation Comments GLUCOSE BEDSIDE (test 71 MG/DL 70-110 N Perfor med by certified code = GLUBED) drill 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 [facility] GLUCOSE [id number] 11:50:00 Test Item Value Reference Range Interpretation Comments GLUCOSE BEDSIDE (test 60 MG/DL 70-110 L Perfor med by certified code = GLUBED) drill 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 [facility] CBC W/AUTO [id number] 08:11:00 Test Item Value Reference Range Interpretation [...] REQUIRED (test code NO = MDIFF) GLUCOSE [id number] 07:58:00 Test Item Value Reference Range Interpretation Comments GLUCOSE BEDSIDE (test 84 MG/DL 70-110 N Per[facility] med by certified code = GLUBED) drill 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 [facility] RENAL FUNCTION [id number] 07:46:00 Test Item Value Reference Range Interpretation [...] MG/DL 2.5-4.9 H code = PHOS) GLUCOSE [id number] 20:16:00 Test Item Value Reference Range Interpretation Comments GLUCOSE BEDSIDE (test 76 MG/DL 70-110 N Per[facility] med by certified code = GLUBED) drill 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 [facility] GLUCOSE [id number] 18:58:00 Test Item Value Reference Range Interpretation Comments GLUCOSE BEDSIDE (test 77 MG/DL 70-110 N Perfor med by certified code = GLUBED) drill 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 [facility] GLUCOSE [id number] 18:58:00 Test Item Value Reference Range Interpretation Comments GLUCOSE BEDSIDE (test 76 MG/DL 70-110 N Perfor med by certified code = GLUBED) drill 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 [facility] GLUCOSE [id number] 16:54:00 Test Item Value Reference Range Interpretation Comments GLUCOSE BEDSIDE (test 97 MG/DL 70-110 N Perfor med by certified code = GLUBED) drill 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 [facility] CRYOGLOBULIN [id number] 15:13:00 Test Item Value Reference Range Interpretation [...] the Food and Drug Admini stration. GLUCOSE [id number] 11:42:00 Test Item Value Reference Range Interpretation Comments GLUCOSE BEDSIDE (test 75 MG/DL 70-110 N Perfor med by certified code = GLUBED) drill 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 [facility] GLUCOSE [id number] 08:11:00 Test Item Value Reference Range Interpretation Comments GLUCOSE BEDSIDE (test 70 MG/DL 70-110 N Perfor med by certified code = GLUBED) drill 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 [facility] CBC W/AUTO [id number] 07:50:00 Test Item Value Reference Range Interpretation [...] = 0.00 x10 3/uL 0.0-0.1 N NRBC#) RENAL FUNCTION [id number] 07:29:00 Test Item Value Reference Range Interpretation [...] 6.6 MG/DL 2.5-4.9 H code = PHOS) [id number] 07:29:00 Test Item Value Reference Range Interpretation Comments MAGNESIUM (test code = MAG) 1.66 mg/dL 1.80-2.40 L GLUCOSE [id number] 20:35:00 Test Item Value Reference Range Interpretation Comments GLUCOSE BEDSIDE (test 78 MG/DL 70-110 N Perfor med by certified code = GLUBED) drill 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 [facility] GLUCOSE [id number] 20:19:00 Test Item Value Reference Range Interpretation Comments GLUCOSE BEDSIDE (test 71 MG/DL 70-110 N Perfor med by certified code = GLUBED) drill 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 [facility] GLUCOSE [id number] 12:17:00 Test Item Value Reference Range Interpretation Comments GLUCOSE BEDSIDE (test 82 MG/DL 70-110 N Perfor med by certified code = GLUBED) drill 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 [facility] [id number] 09:49:00 Test Item Value Reference Range Interpretation Comments MAGNESIUM (test code = MAG) 2.53 mg/dL 1.80-2.40 H GLUCOSE [id number] 08:00:00 Test Item Value Reference Range Interpretation Comments GLUCOSE BEDSIDE (test 66 MG/DL 70-110 L [facility] med by certified code = GLUBED) drill 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 [facility] RENAL FUNCTION [id number] 07:43:00 Test Item Value Reference Range Interpretation [...] the recommended for sudhir for GFRby the [facility] for Adults.The GFR will not calculate if th e sex is unknown or if thepatient's ag e is <18 years. CREATININE (test code 1.3 mg/dL 0.6-1.3 N = CREAT) ALBUMIN (test code = 2.70 g/dL 3.4-5.0 L ALB) CALCIUM (test code = 9.5 mg/dL 8.0-10.5 N CA) PHOSPHOROUS (test 6.3 MG/DL 2.5-4.9 H code = PHOS) CBC W/AUTO [id number] 07:32:00 Test Item Value Reference Range Interpretation [...] REQUIRED (test code NO = MDIFF) GLUCOSE [id number] 21:05:00 Test Item Value Reference Range Interpretation Comments GLUCOSE BEDSIDE (test 102 MG/DL 70-110 N Per[facility] med by certified code = GLUBED) drill 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 [facility] GLUCOSE [id number] 17:58:00 Test Item Value Reference Range Interpretation Comments GLUCOSE BEDSIDE (test 93 MG/DL 70-110 N Perfor med by certified code = GLUBED) drill 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 [facility] RENAL FUNCTION [id number] 07:32:00 Test Item Value Reference Range Interpretation [...] 5.5 MG/DL 2.5-4.9 H code = PHOS) [id number] 07:32:00 Test Item Value Reference Range Interpretation Comments MAGNESIUM (test code = MAG) 1.43 mg/dL 1.80-2.40 L CBC W/AUTO [id number] 06:58:00 Test Item Value Reference Range Interpretation [...] REQUIRED (test code NO = IFF) - XR ABDOMEN 1V ([facility])2023-03-23 00:00:00 [facility] : 1975 Sex: F FAX: Yesika Jacob MD [phone] [place]: St: ADM FAX: Adriana Perkins Name: LIZBET RAHMAN [facility] : 1975 Age/S: 47/F [address] [place] [address] Unit #: [id number] Loc: G.[address] [place] [address] Phys: Adriana Perkins Acct: [id number] Dis Date: Status: ADM IN PHONE #: [phone] Exam Date: 03/23/2023 1617 FAX #: [phone] Reason: PERSISTENT NAUSEA AND VOMMITING EXAMS: CPT CODE: [id number] XR ABDOMEN 1V (KUB) 78266 PROCEDURE INFORMATION: Exam: XR Abdomen Exam date and time: 34:12 PM Age: 47 years old Clinical indication: Nausea and vomiting; Additional info: Persistent nausea and vommiting TECHNIQUE: Imaging protocol: Radiologic exam of the abdomen. Views: Frontal supine view of the abdomen. 1 View. COMPARISON: CT ABD PELVIS W/O CONT 03/18/2023 4:26 PM FINDINGS: Diaphragm:Elevation of the right hemidiaphragm. Gastrointestinal tract: Right lower quadrant colostomy. Nonspec ific bowel gas pattern. No gaseous distention of bowel loops. Organs: Cholecystectomy clips. Bones/joints: No acute osseous abnormality. IMPRESSION: No acute findings. at 6776 Reported and signed by: Triston Martinez M.D. CC: Yesika Chase; Adriana CABELLO Technologist: Navi Marinelli, RT(R); Pete Matamoros RT(R) Trnokrd Date/Time/By: 03/23/2023 (067) : By: [email or web address] Orig Print D/T: S: 03/23/2023 (613) PAGE 1 Signed ReportGLUCOSE [id number] 13:17:00 Test Item Value Reference Range Interpretation Comments GLUCOSE BEDSIDE (test 99 MG/DL 70-110 N Perfor med by certified code = GLUBED) drill 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 [facility] GLUCOSE [id number] 08:20:00 Test Item Value Reference Range Interpretation Comments GLUCOSE BEDSIDE (test 77 MG/DL 70-110 N Perfor med by certified code = GLUBED) drill 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 [facility] RENAL FUNCTION [id number] 07:33:00 Test Item Value Reference Range Interpretation [...] 4.9 MG/DL 2.5-4.9 N code = PHOS) [id number] 07:33:00 Test Item Value Reference Range Interpretation Comments MAGNESIUM (test code = MAG) 2.03 mg/dL 1.80-2.40 CBC W/AUTO [id number] 06:57:00 Test Item Value Reference Range Interpretation [...] (test code NO = MDIFF) BASIC METABOLIC [id number] 17:36:00 Test Item Value Reference Range Interpretation [...] the recommended for sudhir for GFRby the [facility] for Adults.The GFR will not calculate if th e sex is unknown or if thepatient's ag e is <18 years. CREATININE (test 1.7 mg/dL 0.6-1.3 H code = CREAT) CALCIUM (test code = 9.0 mg/dL 8.0-10.5 N CA) [id number] 17:36:00 Test Item Value Reference Range Interpretation Comments PHOSPHOROUS (test code = PHOS) 5.5 MG/DL 2.5-4.9 H [id number] 17:36:00 Test Item Value Reference Range Interpretation Comments MAGNESIUM (test code = MAG) 1.61 mg/dL 1.80-2.40 L CALCIUM [id number] 17:36:00 Test Item Value Reference Range Interpretation Comments CALCIUM IONIZED (test code = LM) 1.05 MMOL/L 1.09-1.30 L CBC W/AUTO [id number] 17:32:00 Test Item Value Reference Range Interpretation [...] REQUIRED (test code NO = MDIFF) GLUCOSE [id number] 16:41:00 Test Item Value Reference Range Interpretation Comments GLUCOSE BEDSIDE (test 67 MG/DL 70-110 L Perfor med by certified code = GLUBED) drill 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 [facility] GLUCOSE [id number] 11:49:00 Test Item Value Reference Range Interpretation Comments GLUCOSE BEDSIDE (test 87 MG/DL 70-110 N Perfor med by certified code = GLUBED) drill 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 [facility] GLUCOSE [id number] 09:45:00 Test Item Value Reference Range Interpretation Comments GLUCOSE BEDSIDE (test 84 MG/DL 70-110 N Perfor med by certified code = GLUBED) drill 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 [facility] GLUCOSE [id number] 08:51:00 Test Item Value Reference Range Interpretation Comments GLUCOSE BEDSIDE (test 67 MG/DL 70-110 L Perfor med by certified code = GLUBED) drill 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 [facility] GLUCOSE [id number] 21:26:00 Test Item Value Reference Range Interpretation Comments GLUCOSE BEDSIDE (test 79 MG/DL 70-110 N Perfor med by certified code = GLUBED) drill 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 [facility] GLUCOSE [id number] 17:47:00 Test Item Value Reference Range Interpretation Comments GLUCOSE BEDSIDE (test 102 MG/DL 70-110 N Perfor med by certified code = GLUBED) drill 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 [facility] GLUCOSE [id number] 12:29:00 Test Item Value Reference Range Interpretation Comments GLUCOSE BEDSIDE (test 88 MG/DL 70-110 N Perfor med by certified code = GLUBED) drill 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 [facility] GLUCOSE [id number] 08:28:00 Test Item Value Reference Range Interpretation Comments GLUCOSE BEDSIDE (test 76 MG/DL 70-110 N Perfor med by certified code = GLUBED) drill 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 [facility] COMPREHENSIVE METABOLIC [id number] 05:28:00 Test Item Value Reference Range Interpretation [...] recommended for sudhir for GFRby the [facility].The GFR will [...] 20-125 H TOTAL (test code = ALKP) [id number] 05:28:00 Test Item Value Reference Range Interpretation Comments PHOSPHOROUS (test code = PHOS) 5.8 MG/DL 2.5-4.9 H [id number] 05:28:00 Test Item Value Reference Range Interpretation Comments MAGNESIUM (test code = MAG) 2.09 mg/dL 1.80-2.40 N CALCIUM [id number] 05:28:00 Test Item Value Reference Range Interpretation Comments CALCIUM IONIZED (test code = LM) 1.21 MMOL/L 1.09-1.30 N CBC W/AUTO [id number] 05:21:00 Test Item Value Reference Range Interpretation [...] 0.00 x10 3/uL 0.0-0.1 N NRBC#) GLUCOSE [id number] 17:07:00 Test Item Value Reference Range Interpretation Comments GLUCOSE BEDSIDE (test 93 MG/DL 70-110 N Perfor med by certified code = GLUBED) drill 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 [facility] GLUCOSE [id number] 12:46:00 Test Item Value Reference Range Interpretation Comments GLUCOSE BEDSIDE (test 93 MG/DL 70-110 N Perfor med by certified code = GLUBED) drill 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 [facility] GLUCOSE [id number] 08:36:00 Test Item Value Reference Range Interpretation Comments GLUCOSE BEDSIDE (test 77 MG/DL 70-110 N Perfor med by certified code = GLUBED) drill 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 [facility] COMPREHENSIVE METABOLIC [id number] 05:50:00 Test Item Value Reference Range Interpretation [...] recommended for sudhir for GFRby the N [facility] Foundati on for Adults.The GFR will [...] 20-125 H TOTAL (test code = ALKP) [id number] 05:50:00 Test Item Value Reference Range Interpretation Comments PHOSPHOROUS (test code = PHOS) 5.8 MG/DL 2.5-4.9 H [id number] 05:50:00 Test Item Value Reference Range Interpretation Comments MAGNESIUM (test code = MAG) 2.30 mg/dL 1.80-2.40 TSH REFLEX TO [id number] 05:50:00 Test Item Value Reference Range Interpretation Comments TSH REFLEX TO FT4 (test code = 8.11 IU/mL 0.42-5.47 H TSHREFLEX) CALCIUM [id number] 05:50:00 Test Item Value Reference Range Interpretation Comments CALCIUM IONIZED (test code = LM) 1.26 MMOL/L 1.09-1.30 N T4 [id number] 05:50:00 Test Item Value Reference Range Interpretation Comments T4 FREE (test code = T4F) 0.8 ng/dL 0.77-1.61 N CBC W/AUTO [id number] 05:10:00 Test Item Value Reference Range Interpretation [...] REQUIRED (test code NO = MDIFF) GLUCOSE [id number] 17:19:00 Test Item Value Reference Range Interpretation Comments GLUCOSE BEDSIDE (test 90 MG/DL 70-110 N Perfor med by certified code = GLUBED) drill 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 [facility] HEPATIC FUNCTION [id number] 16:26:00 Test Item Value Reference Range Interpretation [...] 253 IUnit/L 20-125 H code = ALKP) [id number] 16:26:00 Test Item Value Reference Range Interpretation Comments LIPASE (test code = LIP) 33 U/L 13-57 N HCG SERUM [id number] 12:44:00 Test Item Value Reference Range Interpretation Comments HCG SERUM QUAL (test code = SERUM NEGATIVE NEGATIVE HCGQL) GLUCOSE [id number] 12:14:00 Test Item Value Reference Range Interpretation Comments GLUCOSE BEDSIDE (test 114 MG/DL 70-110 H Perfor med by certified code = GLUBED) drill 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 [facility] BASIC METABOLIC [id number] 11:28:00 Test Item Value Reference Range Interpretation [...] code = 8.7 mg/dL 8.0-10.5 N CA) [id number] 11:28:00 Test Item Value Reference Range Interpretation Comments PHOSPHOROUS (test code = PHOS) 5.1 MG/DL 2.5-4.9 H [id number] 11:28:00 Test Item Value Reference Range Interpretation Comments MAGNESIUM (test code = MAG) 1.57 mg/dL 1.80-2.40 L CALCIUM [id number] 11:28:00 Test Item Value Reference Range Interpretation Comments CALCIUM IONIZED (test code = LM) 1.19 MMOL/L 1.09-1.30 N GLUCOSE [id number] 09:54:00 Test Item Value Reference Range Interpretation Comments GLUCOSE BEDSIDE (test 279 MG/DL 70-110 H Perfor med by certified code = GLUBED) drill 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 [facility] CBC W/AUTO [id number] 09:10:00 Test Item Value Reference Range Interpretation [...] = MDIFF) - CT ABD PELVIS W/O [id number] 00:00:00 [facility] : 1975 Sex: F Name: LIZBET RAHMAN [facility] : 1975 Age/S: 47 / F [address] [place] [address] Unit #: [id number] Loc: [place] [address] Phys: Iva Rivera MD Acct: [id number] Dis Date: Status: ADM IN PHONE #: [phone] Exam Date: 03/18/2023 1626 FAX #: [phone] Reason: ABD PAIN EXAMS: CPT CODE: [id number] CT ABD PELVIS W/O CONT 74372 PROCEDURE INFORMATION: Exam: CT Abdomen And Pelvis [...] ductal dilation. Spleen: Splenomegaly is noted. Adrenal glands:Normal. No mass. Kidneys and ureters: Normal. No hydronephrosis. Stomach and bowel: Postoperative changes of left hemicolectomy and right lower quadrant colostomy formation are seen with trace fluid and areas of stranding in the right lower quadrant and lower abdomen. No bowel obstruction. Appendix: No evidence of appendicitis. Intraperitoneal space: No intraperitoneal free air is seen. Vasculature: Unremarkable. No abdominal aortic aneurysm. Lymph nodes: Unremarkable. No enlarged lymph nodes. Urinary bladder: Capone catheter in the urinary bladder is present. Reproductive: Unremarkable as visualized. Bones/joints: Unremarkable. No acute fracture. Soft tissues: Unremarkable. IMPRESSION: 1. Changesof prior left hemicolectomy and right lower quadrant colostomy formation. 2. Trace fluid with inflammation in the right lower quadrant and lower abdomen. This may represent sequela of recent PAGE 1 Signed Report (CONTINUED) Name: LIZBET RAHMAN [facility] : 1975 Age/S: 47 / F [address] [place] [address] Unit #: [id number] Loc: [place] [address] Phys: Iva Rivera MD Acct: [id number] DisDate: Status: ADM IN PHONE #: [phone] Exam Date: 03/18/2023 1626 FAX #: [phone] Reason: ABD PAIN EXAMS: CPT CODE: [id number] CT ABD PELVIS W/O CONT 28017 (Continued) postoperative change. Early abscess formation cannot be entirely excluded. at 2002 Reported and signed by: Triston Perez M.D. CC: Yesika Luo MD; Iva Rivera MD Technologist:Sotero Gracia, RT(R)(CT) CTDI: DLP: Trnscb Date/Time: 03/18/2023 (2002) tSARIAHSBL Orig Print D/T: S: 03/18/2023 (2003) PAGE 2 Signed ReportGLUCOSE [id number] 16:44:00 Test Item Value Reference Range Interpretation Comments GLUCOSE BEDSIDE (test 79 MG/DL 70-110 N [facility] med by certified code = GLUBED) drill 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 [facility] BASIC METABOLIC [id number] 07:30:00 Test Item Value Reference Range Interpretation [...] 9.6 mg/dL 8.0-10.5 N CA) BASIC METABOLIC [id number] 06:11:00 Test Item Value Reference Range Interpretation [...] code = 9.3 mg/dL 8.0-10.5 N CA) [id number] 06:11:00 Test Item Value Reference Range Interpretation Comments PHOSPHOROUS (test code = PHOS) 5.5 MG/DL 2.5-4.9 H [id number] 06:11:00 Test Item Value Reference Range Interpretation Comments MAGNESIUM (test code = MAG) 1.79 mg/dL 1.80-2.40 L CALCIUM [id number] 06:11:00 Test Item Value Reference Range Interpretation Comments CALCIUM IONIZED (test code = LM) 1.18 MMOL/L 1.09-1.30 N CORTISOL [id number] 06:11:00 Test Item Value Reference Range Interpretation Comments CORTISOL AM (test 22.86 ug/dL Reference Interval: code = CORTAM) 2mo-13yrs: 2. 4-22.9 ug/dL 14-15yrs( Male): 2.5-22.9 ug/dL 14-15yrs(Female ): 2.5-28.6 ug/dL 16-18yrs(M/F): 2.4-28.6 ug/dLAdults(M/F ) AM: 4.3-22.4 ug/dLAdults(M/F ) PM: 3.1-16.7 ug/dL CBC W/AUTO [id number] 05:53:00 Test Item Value Reference Range Interpretation [...] REQUIRED (test code NO = MDIFF) GLUCOSE [id number] 05:21:00 Test Item Value Reference Range Interpretation Comments GLUCOSE BEDSIDE (test 72 MG/DL 70-110 N Perfor med by certified code = GLUBED) drill 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 [facility] GLUCOSE [id number] 18:46:00 Test Item Value Reference Range Interpretation Comments GLUCOSE BEDSIDE (test 106 MG/DL 70-110 N Perfor med by certified code = GLUBED) drill 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 [facility] [id number] 14:11:00 Test Item Value Reference Range Interpretation Comments HAPTOGLOBIN (test code 183 mg/dL 42-296 Perfo rmed At: DA = HAPT) [facility] [address] [place], [place] [id number] h CAROLYN HOLLINS Ph:[phone] GLUCOSE [id number] 12:21:00 Test Item Value Reference Range Interpretation Comments GLUCOSE BEDSIDE (test 97 MG/DL 70-110 N Perfor med by certified code = GLUBED) drill 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 [facility] GLUCOSE [id number] 07:11:00 Test Item Value Reference Range Interpretation Comments GLUCOSE BEDSIDE (test 87 MG/DL 70-110 N Perfor med by certified code = GLUBED) drill 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 [facility] GLUCOSE [id number] 06:20:00 Test Item Value Reference Range Interpretation Comments GLUCOSE BEDSIDE (test 74 MG/DL 70-110 N Perfor med by certified code = GLUBED) drill 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 [facility] GLUCOSE [id number] 05:46:00 Test Item Value Reference Range Interpretation Comments GLUCOSE BEDSIDE (test 68 MG/DL 70-110 L Perfor med by certified code = GLUBED) drill 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 [facility] BASIC METABOLIC [id number] 05:08:00 Test Item Value Reference Range Interpretation [...] code = 9.5 mg/dL 8.0-10.5 N CA) [id number] 05:08:00 Test Item Value Reference Range Interpretation Comments PHOSPHOROUS (test code = PHOS) 4.9 MG/DL 2.5-4.9 N [id number] 05:08:00 Test Item Value Reference Range Interpretation Comments MAGNESIUM (test code = MAG) 1.82 mg/dL 1.80-2.40 CBC W/AUTO [id number] 04:50:00 Test Item Value Reference Range Interpretation [...] REQUIRED (test code NO = MDIFF) GLUCOSE [id number] 23:06:00 Test Item Value Reference Range Interpretation Comments GLUCOSE BEDSIDE (test 92 MG/DL 70-110 N Perfor med by certified code = GLUBED) drill 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 [facility] GLUCOSE [id number] 23:06:00 Test Item Value Reference Range Interpretation Comments GLUCOSE BEDSIDE (test 69 MG/DL 70-110 L Perfor med by certified code = GLUBED) drill 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 [facility] GLUCOSE [id number] 16:58:00 Test Item Value Reference Range Interpretation Comments GLUCOSE BEDSIDE (test 85 MG/DL 70-110 N Perfor med by certified code = GLUBED) drill 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 [facility] HEPATIC FUNCTION [id number] 13:12:00 Test Item Value Reference Range Interpretation [...] IUnit/L 20-125 H code = ALKP) IMMUNOELECTROPHORESIS [id number] 13:12:00 Test Item Value Reference Range Interpretation Comments IMMUNOGLOBULIN A (test <5 mg/dL 87-352 A Resul t confirmed on code = YUE) concentration. IMMUNOGLOBULIN G (test 645 mg/dL 586-1602 code = IMMG) IMMUNOGLOBULIN M (test 101 mg/dL 26-217 Perfo rmed At: DA code = IMMM) [facility] [address] [place], [place] [id number] h CN MD Ph:[phone] rformed At: [facility] [address] [place], [place] [id number] Kyle L MD Ph:[phone] IMMUNOFIXATION SERUM See_Comment A Immunof ixation shows (test code = IMMFIXS) IgG mo noclonal protein with lambdaligh t chain specificity.Imm unofixa tion shows IgG monoclonal prot ein with lambdaligh t chain specificity. [Automated mess age] The system [employer] generated this result transmitted ref erence range: (). The reference range was not used to int erpret this result as normal/abnormal . LACTIC DEHYDROGENASE(LDH)2023-03-15 13:12:00 Test Item Value Reference Range Interpretation Comments LACTIC DEHYDROGENASE(LDH) (test 236 IUnits/L 84-246 N code = LDH) IMMUNOGLOBULINS A,G [id number] 13:12:00 Test Item Value Reference Range Interpretation Comments IMMUNOGLOBULIN G (test code = IGG) IMMUNOGLOBULIN M (test code = IGM) IMMUNOGLOBULIN A (test code = IGA) GLUCOSE [id number] 12:10:00 Test Item Value Reference Range Interpretation Comments GLUCOSE BEDSIDE (test 88 MG/DL 70-110 N Perfor med by certified code = GLUBED) drill 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 [facility] COLD [id number] 09:12:00 Test Item Value Reference Range Interpretation Comments COLD AGGLUTININS (test Negative See_Comment Perfo rmed At: code = COLD) [facility] [id number] Fleming MD Ph:[phone] [Automated mess age] The system [employer] generated this result transmitted ref erence range: Neg <1:3 2. The reference range was not used to int erpret this result as normal/abnormal . GLUCOSE [id number] 09:00:00 Test Item Value Reference Range Interpretation Comments GLUCOSE BEDSIDE (test 78 MG/DL 70-110 N Perfor med by certified code = GLUBED) drill 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 [facility] AB HEPATITIS B [id number] 06:11:00 Test Item Value Reference Range Interpretation Comments AB HEPATITIS B 48.5 mIU/mL See_Comment Status of Im munity SURFACE (test code = Anti-HB s Level HBSAB) --- I nconsis tent with Immun ity 0.0 - 9.9Consistent with Immunity >9.9Pe rformed At: [facility] [address] [id number] Kyle L MD Ph:[phone] [Automated mess age] The system [employer] generated this result transmitted ref erence range: Immunity >9.9. The reference r stefanie was not used to interpret this result as normal/abnor mal. CBC W/AUTO [id number] 05:07:00 Test Item Value Reference Range Interpretation [...] (test code NO = MDIFF) BASIC METABOLIC [id number] 04:55:00 Test Item Value Reference Range Interpretation [...] = 9.1 mg/dL 8.0-10.5 N CA) GLUCOSE [id number] 22:37:00 Test Item Value Reference Range Interpretation Comments GLUCOSE BEDSIDE (test 93 MG/DL 70-110 N Perfor med by certified code = GLUBED) drill 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 [facility] GLUCOSE [id number] 16:31:00 Test Item Value Reference Range Interpretation Comments GLUCOSE BEDSIDE (test 114 MG/DL 70-110 H Perfor med by certified code = GLUBED) drill 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 [facility] GLUCOSE [id number] 08:02:00 Test Item Value Reference Range Interpretation Comments GLUCOSE BEDSIDE (test 90 MG/DL 70-110 N Perfor med by certified code = GLUBED) drill 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 [facility] BASIC METABOLIC [id number] 06:29:00 Test Item Value Reference Range Interpretation [...] the recommended for sudhir for GFRby the [facility] Found[facility] on for Adults.The GFR will not calculate if th e sex is unknown or if thepatient's ag e is <18 years. CREATININE (test 2.0 mg/dL 0.6-1.3 H code = CREAT) CALCIUM (test code = 8.9 mg/dL 8.0-10.5 N CA) [id number] 06:29:00 Test Item Value Reference Range Interpretation Comments PHOSPHOROUS (test code = PHOS) 4.1 MG/DL 2.5-4.9 N [id number] 06:29:00 Test Item Value Reference Range Interpretation Comments MAGNESIUM (test code = MAG) 2.28 mg/dL 1.80-2.40 N [id number] 06:29:00 Test Item Value Reference Range Interpretation Comments PREALBUMIN (test code = PREALB) 22.2 mg/dL 16.0-40.0 N CBC W/AUTO [id number] 06:27:00 Test Item Value Reference Range Interpretation [...] REQUIRED (test code NO = MDIFF) GLUCOSE [id number] 21:17:00 Test Item Value Reference Range Interpretation Comments GLUCOSE BEDSIDE (test 100 MG/DL 70-110 N Perfor med by certified code = GLUBED) drill 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 [facility] GLUCOSE [id number] 17:04:00 Test Item Value Reference Range Interpretation Comments GLUCOSE BEDSIDE (test 121 MG/DL 70-110 H Perfor med by certified code = GLUBED) drill 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 [facility] GLUCOSE [id number] 12:39:00 Test Item Value Reference Range Interpretation Comments GLUCOSE BEDSIDE (test 105 MG/DL 70-110 N Perfor med by certified code = GLUBED) drill 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 [facility] [id number] 10:47:00 Test Item Value Reference Range Interpretation Comments VANCOMYCIN (test code = VANCO) 22.1 mcg/mL GLUCOSE [id number] 08:05:00 Test Item Value Reference Range Interpretation Comments GLUCOSE BEDSIDE (test 150 MG/DL 70-110 H Perfor med by certified code = GLUBED) drill 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 [facility] BASIC METABOLIC [id number] 06:10:00 Test Item Value Reference Range Interpretation [...] the recommended for sudhir for GFRby the [facility] on for Adults.The GFR will not calculate if th e sex is unknown or if thepatient's ag e is <18 years. CREATININE (test 2.0 mg/dL 0.6-1.3 H code = CREAT) CALCIUM (test code = 8.5 mg/dL 8.0-10.5 N CA) [id number] 06:10:00 Test Item Value Reference Range Interpretation Comments PHOSPHOROUS (test code = PHOS) 4.0 MG/DL 2.5-4.9 N [id number] 06:10:00 Test Item Value Reference Range Interpretation Comments MAGNESIUM (test code = MAG) 2.46 mg/dL 1.80-2.40 H CBC W/AUTO [id number] 05:51:00 Test Item Value Reference Range Interpretation [...] (test code NO = MDIFF) - RETRO [id number] 00:00:00 [facility] : 1975 Sex: F Name: LIZBET RAHMAN [facility] : 1975 Age/S: 47 / F [address] [place] [address] Blvd Unit #: [id number] Loc: [place] [address] Phys: Lauro Mead Acct: [id number] Dis Date: Status: ADM INPHONE #: [phone] Exam Date: 03/12/2023 1308 FAX #: [phone] Reason: uro sepsis EXAMS: CPT CODE: [id number] US RETRO LTD 15726 PROCEDURE INFORMATION: Exam: US Retroperitoneal Limited, Kidneys Exam date and time: 03/12/2023 11:08 AM Age: 47 years old Clinical indication: Condition or disease; Kidney or ureter condition; Acute renal insufficiency; Additional info: Uro sepsis TECHNIQUE: Imaging protocol: Real-time ultrasound of the retroperitoneum with image [...] bladder. IMPRESSION: Limited exam. No acute findings. ElectronicallySigned by Marifer Reese on 03/13/2023 at 0809 Reported and signed by: Norberto Reese M.D. CC: Yesika Luo MD; Lauro CABELLO Technologist: Ernestina Conway Trnscb Date/Time: 03/13/2023 (808) Akin.JT18 Orig Print D/T: S: 03/13/2023 (4117) Probe: PAGE 1 Signed Report GLUCOSE [id number] 22:36:00 Test Item Value Reference Range Interpretation Comments GLUCOSE BEDSIDE (test 117 MG/DL 70-110 H Perfor med by certified code = GLUBED) drill 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 [facility] TOTAL IRON BINDING [id number] 16:24:00 Test Item Value Reference Range Interpretation Comments SERUM IRON (test code = IRON) 85 mcg/dL 35-150 N TOTAL IRON BINDING CAPACITY (test 249 mcg/dL 260-445 L code = TIBC) UIBC (test code = UIBC) 164 mcg/dL IRON SATURATION (test code = 34.1 % 14-34 H FESAT) VITAMIN [id number] 16:24:00 Test Item Value Reference Range Interpretation Comments VITAMIN B12 (test code = VITB12) 478 pg/mL 193-986 N [id number] 16:24:00 Test Item Value Reference Range Interpretation Comments FERRITIN (test code = CALEB) 2928.3 ng/mL 11.0-306.8 H RETIC COUNT (AUTOMATED)2023-03-12 16:23:00 Test Item Value Reference Range Interpretation Comments RETIC COUNT (AUTOMATED) (test code = 3.8 % 0.3-2.3 H RETICA) GLUCOSE [id number] 15:48:00 Test Item Value Reference Range Interpretation Comments GLUCOSE BEDSIDE (test 128 MG/DL 70-110 H Perfor med by certified code = GLUBED) drill 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 [facility] GLUCOSE [id number] 12:31:00 Test Item Value Reference Range Interpretation Comments GLUCOSE BEDSIDE (test 135 MG/DL 70-110 H Perfor med by certified code = GLUBED) drill 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 [facility] GLUCOSE [id number] 08:47:00 Test Item Value Reference Range Interpretation Comments GLUCOSE BEDSIDE (test 106 MG/DL 70-110 N Perfor med by certified code = GLUBED) drill 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 [facility] BASIC METABOLIC [id number] 07:11:00 Test Item Value Reference Range Interpretation [...] 8.1 mg/dL 8.0-10.5 N CA) HEPATIC FUNCTION [id number] 07:11:00 Test Item Value Reference Range Interpretation [...] 340 IUnit/L 20-125 H code = ALKP) [id number] 07:11:00 Test Item Value Reference Range Interpretation Comments PHOSPHOROUS (test code = PHOS) 4.4 MG/DL 2.5-4.9 N [id number] 07:11:00 Test Item Value Reference Range Interpretation Comments MAGNESIUM (test code = MAG) 1.27 mg/dL 1.80-2.40 L TROP-I HIGH [id number] 07:11:00 Test Item Value Reference Range Interpretation [...] These resu lts were obtained using Siemens [employer]ellJibestream IM TnI Hreagent. Results from di fferent methodologies s hould not becompared to o ne another as quantitative results and URLs mayvar y by method. [id number] 07:08:00 Test Item Value Reference Range Interpretation Comments VANCOMYCIN (test code = VANCO) 14.7 mcg/mL ACETONE [id number] 07:04:00 Test Item Value Reference Range Interpretation Comments ACETONE QUANT NEGATIVE - <20 See_Comment [Automated message] (test code = mg/dL mg/dL The system [employer] ACETN) generated this result transmit tomy reference range : Neg - <20. The refe rence range was not u sed to interpret th is result as normal/abnormal . LACTIC [id number] 06:48:00 Test Item Value Reference Range Interpretation Comments LACTIC ACID (test code = LACT) 0.8 mmol/L 0.4-1.9 N PROTHROMBIN [id number] 06:46:00 Test Item Value Reference Range Interpretation [...] (to prevent recurrent infar ct). THROMBOPLASTIN TIME [id number] 06:46:00 Test Item Value Reference Range Interpretation Comments THROMBOPLASTIN TIME 30.5 Seconds 25.0-39.5 N Therape utic Range: PARTIAL (test code = 50.4 - 88.3 Seconds PTT) Effective 01/09/2019 CBC W/AUTO [id number] 06:42:00 Test Item Value Reference Range Interpretation [...] code NO = MDIFF) COVID 19 INHOUSE [id number] 06:40:00 Test Item Value Reference Range Interpretation Comments COVID 19 INHOUSE Negative Negative A negative result is AG (test code = presumptive and should be [id number]) confirmedwith a n FDA authorized mole cular assay, if necessary fo rpatient management.A po sitive result does not rule out co-infections w ithother pathogens.This test detects both viable (li ve) and non-viable,SARS -CoV, and SARS-CoV-2. Aileen t performance dep ends on theamount of vi rajni (antigen) in th e sample.This aileen t has not been FDA cleare d or approved; the t est hasbeen authorized by Birdie HERRERA under an Emergency Use Authorization(E UA) for use by laboratories certified under the CLIA thatmeet the requirements to perform moderate, high or waivedcomplexit y tests. POC VENOUS BLOOD [id number] 06:15:00 Test Item Value Reference Range Interpretation Comments ELIESER'S TEST (test code = N/A ALLENS) POC VENOUS BLOOD GAS PH (test 7.411 7.33-7.45 N code = POCPHV) POC VENOUS BLOOD GAS PCO2 (test 48.9 mmHg 43-47 H code = QNOSMU9S) POC VENOUS BLOOD GAS PO2 (test 36.8 mmHG 10-50 N code = OSHDX9F) POC TCO2 VENOUS (test code = 32.6 KMYADI8C) POC HCO3 VENOUS (test code = 31.1 MMOL/L 22-27 H QIACQH7C) POC BASE EXCESS VENOUS (test 6.4 MMOL/L -4.0-4.0 H code = POCBEV) POC O2 SATURATION VENOUS (test 69.9 % 60-80 N code = EFEZ7BE) VENOUS BLOOD GAS DELIVERY (test Cannula code = DELV) VENOUS BLOOD GAS SITE (test code Central Line = SITEV) BASIC METABOLIC [id number] 00:35:00 Test Item Value Reference Range Interpretation [...] the recommended for sudhir for GFRby the [facility] on for Adults.The GFR will not calculate if th e sex is unknown or if thepatient's ag e is <18 years. CREATININE (test 1.6 mg/dL 0.6-1.3 H code = CREAT) CALCIUM (test code = 8.4 mg/dL 8.0-10.5 N CA) TROP-I HIGH [id number] 00:35:00 Test Item Value Reference Range Interpretation [...] These resu lts were obtained using [employer] IM TnI Hreagent. Results from di fferent methodologies s hould not becompared to o ne another as quantitative results and URLs mayvar y by method. 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 [id number] 17:51:00 Test Item Value Reference Range Interpretation Comments POTASSIUM (test code = K) 3.1 mEq/L 3.4-5.0 L TROP-I HIGH [id number] 17:51:00 Test Item Value Reference Range Interpretation [...] These resu lts were obtained using [employer]ell[employer]ibestream IM TnI Hreagent. Results from di fferent methodologies s hould not becompared to o ne another as quantitative results and URLs mayvar y by method. 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 ACUTE HEPATITIS [id number] 15:11:00 Test Item Value Reference Range Interpretation Comments AB HEPATITIS A IGM (test NON REACTIVE INDEX NON REACT. code = HAVMAB) AG HEPATITIS B SURFACE NON REACTIVE INDEX NonReactive (test code = HBSAG) AB HEPATITIS B CORE IGM NON REACTIVE INDEX NON REACT. (test code = HBCMAB) AB HEPATITIS C (test code NON REACTIVE INDEX NON REACT. = HCVAB) Comment: At start of [id number] 13:46:00 Test Item Value Reference Range Interpretation Comments POTASSIUM (test code = 6.5 mEq/L 3.4-5.0 HH Criti cipriano result called K) to [place] [id number] at 13 43 03/11/23Nurse r ead back result and tech confirmed it's correct? 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 TROP-I HIGH [id number] 11:21:00 Test Item Value Reference Range Interpretation Comments TROP-I HIGH 270 ng/L 0-34 HH Critical result called to SENSITIVITY (test BLANK MCGEE, RNby code = TROPIHS) bryanGabeSTFMS22 at 1121 03/11/23Nurse r ead back result [...] mayvar y by method. LACTIC ACID 2ND [id number] 11:16:00 Test Item Value Reference Range Interpretation Comments LACTIC ACID 2ND REPEAT (test code 2.0 mmol/L 0.4-1.9 H = LACT2) UA RFLX MICR CULT IF [id number] 10:43:00 Test Item Value Reference Range Interpretation [...] (CAPONE)Cath Status: Less than 14 daysUR SODIUM [id number] 10:43:00 Test Item Value Reference Range Interpretation Comments UR SODIUM RANDOM 48 MEQ/L The Referen ce Range and (test code = MING) Method Per formance specificationsh ave not been established for this fluid. The test result should be correlated into the clinical context forinte rpretation. Indication for culture: RiskForSepsis-no oth srcSpecimen Description: INDWELLING CATH (CAPONE)Cath Status: Less than 14 daysUR PROTEIN [id number] 10:43:00 Test Item Value Reference Range Interpretation Comments UR PROTEIN RANDOM (test code = 171 mg/dL PROTU) Indication for culture: RiskForSepsis-no oth srcSpecimen Description: INDWELLING CATH (CAPONE)Cath Status: Less than 14 daysUR CREATININE [id number] 10:43:00 Test Item Value Reference Range Interpretation Comments UR CREATININE 49.9 mg/dL The Reference Range and RANDOM (test code Method Per formance = CREATU) specificationsh ave not been establishe d for this fluid. The test resultshould be correlated into the clinical contex t forinterpretati on. Indication for culture: RiskForSepsis-no oth srcSpecimen Description: INDWELLING CATH (CAPONE)Cath Status: Less than 14 daysUR OSMOLALITY [id number] 10:43:00 Test Item Value Reference Range Interpretation Comments UR OSMOLALITY RANDOM (test code = 313 MOS/KG 300-1000 OSMOU) Indication for culture: RiskForSepsis-no oth srcSpecimen Description: INDWELLING CATH (CAPONE)Cath Status: Less than 14 daysUR OSMOLALITY [id number] 10:43:00 Test Item Value Reference Range Interpretation Comments UR OSMOLALITY RANDOM (test code = 313 MOS/KG 300-1000 N OSMOU) Indication for culture: RiskForSepsis-no oth srcSpecimen Description: INDWELLING CATH (CAPONE)Cath Status: Less than 14 daysLACTIC ACID [id number] 09:43:00 Test Item Value Reference Range Interpretation Comments LACTIC ACID REPEAT (test code = 3.3 mmol/l 0.4-1.9 H LACTR) BASIC METABOLIC [id number] 07:24:00 Test Item Value Reference Range Interpretation Comments SODIUM (test code = 129 mEq/L 134-147 L NA) POTASSIUM (test code 7.1 mEq/L 3.4-5.0 Critica l result called = K) to IDAN Simpson RN by rosieSTFMS22 at 04 1803/11/23Nurse r ead back result [...] = 10.8 mg/dL 8.0-10.5 H CA) LACTIC [id number] 07:16:00 Test Item Value Reference Range Interpretation Comments LACTIC ACID (test code = LACT) 2.9 mmol/L 0.4-1.9 H B-TYPE NATRIURETIC [id number] 06:00:00 Test Item Value Reference Range Interpretation Comments B-TYPE NATRIURETIC PEPTIDE (test 64.0 PG/ML 0-100 N code = BNP) BASIC METABOLIC [id number] 04:11:00 Test Item Value Reference Range Interpretation [...] = POCGLU) 124 MG/DL 70-110 H HEMOGLOBIN [id number] 04:11:00 Test Item Value Reference Range Interpretation Comments HEMOGLOBIN ABG (test code = 11.1 G/DL 11.0-15.0 N HGB/ABG) [id number] 04:11:00 Test Item Value Reference Range Interpretation Comments HEMATOCRIT (test code = HCT/ABG) 32 % 33.0-45.0 L POC LACTIC [id number] 04:11:00 Test Item Value Reference Range Interpretation Comments POC LACTIC ACID (test code = 2.8 mmol/l 0.9-1.7 H POCLAC) POC VENOUS BLOOD [id number] 04:11:00 Test Item Value Reference Range Interpretation Comments POC VENOUS BLOOD GAS PH (test 7.096 7.33-7.45 L code = POCPHV) POC VENOUS BLOOD GAS PCO2 (test 33.5 mmHg 43-47 L code = RLBQEQ7C) POC VENOUS BLOOD GAS PO2 (test 43.2 mmHG 10-50 N code = XEGGR6L) POC TCO2 VENOUS (test code = 11.4 IODQIX4V) POC HCO3 VENOUS (test code = 10.4 MMOL/L 22-27 L KYNLTW9Q) POC BASE EXCESS VENOUS (test -19.4 MMOL/L -4.0-4.0 L code = POCBEV) POC O2 SATURATION VENOUS (test 63.6 % 60-80 N code = ATDR6IN) VENOUS BLOOD GAS FIO2 (test code 100.0 % = FIO2V) VENOUS BLOOD GAS DELIVERY (test NRBMASK code = DELV) VENOUS BLOOD GAS TEMP (test code 97.9 F = TEMPV) LIPOPROTEIN [id number] 03:55:00 Test Item Value Reference Range Interpretation Comments LIPOPROTEIN LDL 48.0 mg/dL 0-100 N <100 OPTIMAL 100-129 NEAR (test code = LDL) OPTIMAL/AB OVE [id number] [id number] 89 HIGH>HT=015 CAITLIN Y HIGH*Guidelines provided by the National Cholesterol EducationProgra m Adult Treatment Panel III BASIC METABOLIC [id number] 03:39:00 Test Item Value Reference Range Interpretation Comments SODIUM (test code = 125 mEq/L 134-147 L NA) POTASSIUM (test code 8.3 mEq/L 3.4-5.0 HH Critica l result called = K) to ABDULLAHI Cooper [id number] at 03 03/11/23Nrashard r ead back result and tech confirmed [...] 9.6 mg/dL 8.0-10.5 N CA) TROP-I HIGH [id number] 03:39:00 Test Item Value Reference Range Interpretation Comments TROP-I HIGH 553 ng/L 0-34 HH Critical result called to SENSITIVITY (test RN RAJANI Cooper code = TROPIHS) [id number] at 0338 03/11/23Nurse r ead back result and tech [...] URL. These resu lts were obtained using [employer]ellJibestream IM TnI Hreagent. Results from di fferent methodologies s hould not becompared to o ne another as quantitative results and URLs mayvar y by method. CBC W/AUTO [id number] 03:13:00 Test Item Value Reference Range Interpretation [...] : NO Edited by: [id number] [id number] on 03/11/23:311: MAN DI FF NEEDED previous ly reported [...] 3/uL 0.0-0.1 N code = NRBC#) RBC [id number] 03:13:00 Test Item Value Reference Range Interpretation Comments ANISOCYTOSIS (test code = ANISO) 1+ POLYCHROMASIA (test code = POLC) 1+ POIKILOCYTOSIS (test code = POIK) 2+ - XR CHEST 1 [id number] 00:00:00 [facility] 1975 Sex: F FAX: Yesika Jacob MD [phone] [place]: St: [facility] FAX: Tania Parada MD Name: LIZBET RAHMAN [facility] [place] : 1975 Age/S: 47/F [address] [place] [address] Unit #: [id number] Loc: G.M327 [place] [address] Phys: Tania Parada MD Acct: [id number] Dis Date: Status: ADM IN PHONE #: [phone] Exam Date: 03/11/2023 1253 FAX #: [phone] Reason: CENTRAL LINE PLACEMENT EXAMS: CPT CODE: [id number] XR CHEST 1 V 37568 PROCEDURE INFORMATION: Exam: XR Chest Exam date [...] placement. No acute pulmonary findings. at 1323 Reported and signed by: John Ortiz M.D. CC: Yesika Luo MD; Tania Parada MD Technologist: RT Tom(Yadi) Trnscrd Date/Time/By: 03/11/2023 (2971) : By: Akin.[email or web address] Orig Print D/T: S: 03/11/2023 (1874) PAGE 1 Signed Report- XR CHEST 1 [id number] 00:00:00 [facility] : 1975 Sex: F FAX: Miranda Portillo MD [place]: St: REG Name: LIZBET RAHMAN [facility] : 1975 Age/S: 47/F [address] [place] [address] Unit #: [id number] Loc: [place] [address] Phys: Miranda Portillo MD Acct: [id number] Dis Date: Status: [facility] ER PHONE #: [phone] Exam Date: 03/11/2023320 FAX #: [phone] Reason: chest pain EXAMS: CPT CODE: [id number] XR CHEST 1 V 39869 PROCEDURE INFORMATION: Exam: XR Chest Exam date and time: 03/11/2023 3:12 AM Age: 47 years old Clinical indication: Other: Chest pain TECHNIQUE: Imaging protocol: Radiologic exam of the chest. Views: 1 view. COMPARISON: CR XR CHEST 1V 02/23/2023 8:59 PM FINDINGS: Lungs: The lungs are hypoinflated. Increased interstitial markings are noted richard aterally. No focal consolidation. Pleural spaces: No pleural effusion. No pneumothorax. Heart/Mediastinum: Mild cardiomegaly. Diaphragm: Elevation of right hemidiaphragm. Bones/joints: No acute abnormality. IMPRESSION: Increased interstitial markings bilaterally may represent edema or atypical/viral p neumonitis. at 0409 Reported and signed by: Michel Pearson M.D. 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) Ctr"Point of [place] re test critical value [...] identification of temporalchanges in troponin levels. LIVER [id number] 22:17:00 Test Item Value Reference Range Interpretation Comments TOTAL PROTEIN (test code 5.5 GM/DL 5.0-8.0 N Per formed by = PROT) certified opera tor at [facility] ALBUMIN (test code = 2.9 [...] 38 UNITS/L 25-125 N LELIA) BASIC METABOLIC [id number] 22:04:00 Test Item Value Reference Range Interpretation [...] POCGLU) 90 MG/DL 70-110 N POC LACTIC [id number] 22:04:00 Test Item Value Reference Range Interpretation Comments POC LACTIC ACID (test code = 0.9 mmol/l 0.9-1.7 N POCLAC) COMPLETE BLOOD COUNT (CBC)2023-02-23 21:28:00 Test Item Value Reference Range Interpretation Comments POC WHITE BLOOD CELL 5.2 10 3/uL 4.1-10.4 N Testing performed (test code = EDWBC) at:[facility] [address] [place], [place] [address] POC RED BLOOD CELL 3.03 10 6/uL [...] N VOLUME (test code = EDMPV) - XR CHEST 1 [id number] 21:27:00 [facility] : 1975 Sex: F FAX: Tarun Oliver MD [phone] Smiley: NARA St: PRE Name: LIZBET RAHMAN ED : 1975 Age/S: 47/F [address] [facility]. Unit #: [id number] Loc: DIET[place], [place] [address] Phys: Tarun Oliver MD Acct: [id number] Dis Date: Status: PRE ER PHONE #: Exam Date: 02/23/20232111 FAX #: Reason: chest pain EXAMS: CPT CODE: [id number] XR CHEST 1 V 06027 EXAM: - XR CHEST 1 V COMPARISON: 11/24/22 LOCATION: H47 HISTORY: chest pain FINDINGS: Single view of the chest. No indwelling lines or tubes. No pneumothorax. Right basilar mild airspace disease. No effusions. The mediastinal contours are unremarkable/unchanged. No acute osseous findings are present. IMPRESSION: Right basilar mild airspace disease. Electronically Sig sarah by Marifer Verdugo on 02/23/2023 at 2126 Reported and signed by: Herve Verdugo M.D.CC: Tarun Oliver MD Technologist: RT Leo(R)(CT) Trnscrd Date/Time/By: 02/23/2023 (2126): By: Akin.[email or web address] Orig Print D/T: S: 02/23/2023 (2129) PAGE 1 Signed ReportFUNGUS CULTURE + [id number] 17:50:30 Test Item Value Reference Range Interpretation Comments CULTURE (BEAKER) (test No fungus isolated in code = 1095) 28 days FUNGUS SMEAR (BEAKER) No fungi seen (test code = 1406) [id number] 16:48:25 Test Item Value Reference Range Interpretation Comments MAGNESIUM (test code = 1529974518) 1.0 mg/dL 1.7-2.4 L Lab Interpretation (test code = Abnormal 39437-7) [facility] (NA, K, CL, CO2, GLUCOSE, BUN, CREATININE, CA)2023-02-21 16:46:14 Test Item Value Reference Range Interpretation Comments NA (test code = 136 mmol/L 135-145 8950092036) K (test code = 3.6 mmol/L 3.5-5.0 1095460035) CL (test code = 113 mmol/L 98-108 H 2551300690) CO2 TOTAL (test code = 18 mmol/L 23-31 L 3898382512) AGAP (test code = 5 2-16 1124477178) BUN (test code = 9 mg/dL 7-23 5757253997) GLUCOSE (test code = 104 mg/dL 70-110 3521061579) CREATININE (test code = 0.81 mg/dL 0.50-1.04 5396360565) CALCIUM (test code = 8.4 mg/dL 8.6-10.6 L 6146883266) eGFR (test code = 75.2 mL/min/1.73m2 4761323397) AREN (test code = AREN) Association of [...] tests). Lab Interpretation Abnormal (test code = 15825-3) [facility] WITH [id number] 16:31:36 Test Item Value Reference Range Interpretation [...] (test code = 52.5 fL 39.0-49.9 H 61295-6) RDW-CV (test code = 17.0 % 12.0-15.5 H 788-0) PLT (test code = 273 See_Comment [Automated 777-3) message] The sy stem which generated this result transmitted reference range : 166 - 358 10*3/ ?L. The reference r stefanie was not used to interpret this result as normal/abnormal . MPV (test code = 10.2 fL 9.5-12.9 77300-0) NRBC/100 WBC (test 0.0 See_Comment [Automat ed code = 1792999364) message] The system which generated this result transmitted reference range : 0.0 - 10.0 /100 WBCs. The refer ence range was not u sed to interpret th is result as normal/abnormal . NRBC x10^3 (test code See_Comment [Auto mated = 2474293630) message] The s ystem which generated this result transmitted reference range : 10*3/?L. The reference range was not used to interpret this result as normal/abnormal . GRAN MAT (NEUT) % 85.0 % (test code = 770-8) IMM GRAN % (test code 0.50 % = 9249999408) LYMPH % (test code = 8.1 % 736-9) MONO % (test code = 5.4 % 5905-5) EOS % (test code = 0.7 % 713-8) BASO % (test code = 0.3 % 706-2) GRAN MAT x10^3(ANC) 5.00 10*3/uL 1.88-7.09 (test code = 0636108622) IMM GRAN x10^3 (test 0.03 10*3/uL 0.00-0.06 code = 5818844794) LYMPH x10^3 (test code 0.48 10*3/uL 1.32-3.29 L = 731-0) MONO x10^3 (test code 0.32 10*3/uL 0.33-0.92 L = 742-7) EOS x10^3 (test code = 0.04 10*3/uL 0.03-0.39 711-2) BASO x10^3 (test code 0.01-0.07 = 704-7) Lab Interpretation Abnormal (test code = 28965-0) [facility] Packed RBC (in units)2023-02-18 22:52:30 Test Item Value Reference Range Interpretation Comments Unit Blood Type (test O Pos code = 4410) ISBT Blood Type Code 5100 (test code = 773308) Unit Number (test [id number] code = 4411) Blood Expiration Date & Time (test code = 012818) Status Information Issued (test code = 4412) Product Red Blood Cells Identification (test code = 4413) Product Code (test P0489B05 Performed at [facility] code = 4414) Laboratory Services - [facility] Blood [address] [place] [address]Nnee Free: [phone] A No. [id number] Cross Match Result Compatible (test code = 4409) [facility] [id number] 07:10:57 Test Item Value Reference Range Interpretation Comments TROPONIN I (test code = <=0.034 2223893632) AREN (test code = AREN) Reference (Normal) [...] biotin. Lab Interpretation Normal (test code = 96162-0) [facility] METABOLIC PANEL (NA, K, CL, CO2, GLUCOSE, BUN, CREATININE, CA)2023-02-18 06:59:15 Test Item Value Reference Range Interpretation Comments NA (test code = 129 mmol/L 135-145 L 1990152555) K (test code = 4.2 mmol/L 3.5-5.0 9087149544) CL (test code = 105 mmol/L 98-108 0777760378) CO2 TOTAL (test code = 16 mmol/L 23-31 L 4598548358) AGAP (test code = 8 2-16 2977111609) BUN (test code = 27 mg/dL 7-23 H 8030496418) GLUCOSE (test code = 86 mg/dL 70-110 0312356969) CREATININE (test code = 1.51 mg/dL 0.50-1.04 H 2549094662) CALCIUM (test code = 8.3 mg/dL 8.6-10.6 L 2223574309) eGFR (test code = 36.6 mL/min/1.73m2 9479217399) AREN (test code = AREN) Association of [...] tests). Lab Interpretation Abnormal (test code = 55687-2) [facility] WITH [id number] 06:44:57 Test Item Value Reference Range Interpretation Comments WBC (test code = 6.63 See_Comment [Automated 6690-2) message] The sy stem which generated this result transmitted reference range : 4.30 - 11.10 10*3/?L. The reference range was not used to interpret this result as normal/abnormal . RBC (test code = 2.68 See_Comment L [Automated 609-8) message] The sy stem which generated this [...] (test code = 52.4 fL 39.0-49.9 H 43761-7) RDW-CV (test code = 17.2 % 12.0-15.5 H 788-0) PLT (test code = 382 See_Comment H [Automated 777-3) message] The sy stem which generated this result transmitted reference range : 166 - 358 10*3/ ?L. The reference r stefanie was not used to interpret this result as normal/abnormal . MPV (test code = 10.0 fL 9.5-12.9 42687-5) NRBC/100 WBC (test 0.0 See_Comment [Automat ed code = 1467509554) message] The system which generated this result transmitted reference range : 0.0 - 10.0 /100 WBCs. The refer ence range was not u sed to interpret th is result as normal/abnormal . NRBC x10^3 (test code See_Comment [Auto mated = 7200982489) message] The s ystem which generated this result transmitted reference range : 10*3/?L. The reference range was not used to interpret this result as normal/abnormal . GRAN MAT (NEUT) % 77.8 % (test code = 770-8) IMM GRAN % (test code 1.20 % = 0683788737) LYMPH % (test code = 13.0 % 736-9) MONO % (test code = 5.9 % 5905-5) EOS % (test code = 1.5 % 713-8) BASO % (test code = 0.6 % 706-2) GRAN MAT x10^3(ANC) 5.16 10*3/uL 1.88-7.09 (test code = 9323967155) IMM GRAN x10^3 (test 0.08 10*3/uL 0.00-0.06 H code = 4500212274) LYMPH x10^3 (test code 0.86 10*3/uL 1.32-3.29 L = 731-0) MONO x10^3 (test code 0.39 10*3/uL 0.33-0.92 = 742-7) EOS x10^3 (test code = 0.10 10*3/uL 0.03-0.39 711-2) BASO x10^3 (test code 0.04 10*3/uL 0.01-0.07 = 704-7) Lab Interpretation Abnormal (test code = 30878-6) [facility] [id number] 20:43:18 Test Item Value Reference Range Interpretation Comments TROPONIN I (test code = <=0.034 9358053388) AREN (test code = AREN) Reference (Normal) [...] biotin. Lab Interpretation Normal (test code = 52676-4) [facility] HospitalOSMOL[facility]ITY, SERUM OR [id number] 15:40:21 Test Item Value Reference Range Interpretation Comments OSMOLALITY (test code = 281 See_Comment [Au tomated message] 2692-2) The system [employer] generated this result transmitted ref erence range: 278 - 30 5 mOsm/kg. The re ference range was not u sed to interpret this result as normal/abnor mal. Lab Interpretation (test Normal code = 40361-7) [facility] (NA, K, CL, CO2, GLUCOSE, BUN, CREATININE, CA)2023-02-17 06:10:05 Test Item Value Reference Range Interpretation Comments NA (test code = 130 mmol/L 135-145 L 2161593610) K (test code = 4.3 mmol/L 3.5-5.0 0681013543) CL (test code = 104 mmol/L 98-108 8681560237) CO2 TOTAL (test code = 16 mmol/L 23-31 L 7337638778) AGAP (test code = 10 2-16 4136403037) BUN (test code = 23 mg/dL 7-23 9169977613) GLUCOSE (test code = 93 mg/dL 70-110 4441235615) CREATININE (test code = 1.31 mg/dL 0.50-1.04 H 1500613955) CALCIUM (test code = 8.9 mg/dL 8.6-10.6 2300846494) eGFR (test code = 43.2 mL/min/1.73m2 8642234432) AREN (test code = AREN) Association of [...] tests). Lab Interpretation Abnormal (test code = 70685-8) [facility] [id number] 04:00:12 Test Item Value Reference Range Interpretation Comments TROPONIN I (test code = <=0.034 0662367390) AREN (test code = AREN) Reference (Normal) [...] biotin. Lab Interpretation Normal (test code = 37027-4) [facility]MINAL [id number] 04:00:12 Test Item Value Reference Range Interpretation Comments NT-proBNP (test code = 216 pg/mL <=125 H 0686376037) AREN (test code = AREN) Biotin has been reported to cause a negative bias, interpret results relative to patient's use of biotin. Lab Interpretation (test Abnormal code = 72135-5) [facility]LIPASE[facility]23-[facility] 03:48:14 Test Item Value Reference Range Interpretation Comments LIPASE (test code = 7242528298) 143 U/L 0-220 Lab Interpretation (test code = Normal 79098-3) [facility] (NA, K, CL, CO2, GLUCOSE, BUN, CREATININE, CA)2023-02-17 03:48:13 Test Item Value Reference Range Interpretation Comments NA (test code = 129 mmol/L 135-145 L 7224199310) K (test code = 4.6 mmol/L 3.5-5.0 3523247310) CL (test code = 103 mmol/L 98-108 5356615448) CO2 TOTAL (test code = 18 mmol/L 23-31 L 1339735013) AGAP (test code = 8 2-16 4320384366) BUN (test code = 24 mg/dL 7-23 H 6924721924) GLUCOSE (test code = 101 mg/dL 70-110 4720435124) CREATININE (test code = 1.36 mg/dL 0.50-1.04 H 4226313109) CALCIUM (test code = 9.2 mg/dL 8.6-10.6 1367933408) eGFR (test code = 41.3 mL/min/1.73m2 0716872528) AREN (test code = AREN) Association of [...] tests). Lab Interpretation Abnormal (test code = 96307-3) [facility] (14301[facility] (ALB,T.PRO,BILI T,BU/BC,ALT,AST,ALK PHOS)2023-02-17 03:48:13 Test Item Value Reference Range Interpretation Comments TOTAL BILI (test code = 1462436596) 0.7 mg/dL 0.1-1.1 BILI UNCON (test code = 2022762011) 0.2 mg/dL 0.1-1.1 BILI CONJ (test code = 1658007262) 0.0 mg/dL 0.0-0.3 T PROTEIN (test code = 3876933779) 6.3 g/dL 6.3-8.2 ALBUMIN (test code = 6179232246) 3.7 g/dL 3.5-5.0 ALK PHOS (test code = 8260466478) 239 U/L 34-122 H ALTv (test code = 1742-6) 16 U/L 5-35 AST(SGOT) (test code = 9803558592) 20 U/L 13-40 Lab Interpretation (test code = Abnormal 34074-3) [facility] HospitalD-[id number] 03:44:12 Test Item Value Reference Interpretation Comments Range D-DIMER (test code = 2.01 See_Comment H [Autom ated 8165835754) message] The system which generated this result [...] diagnosis. Lab Interpretation Abnormal (test code = 11183-3) [facility] WITH [id number] 03:35:53 Test Item Value Reference Range Interpretation Comments WBC (test code = 8.41 See_Comment [Automated 2096-2) message] The sy stem which generated this result transmitted reference range : 4.30 - 11.10 10*3/?L. The reference range was not used to interpret this result as normal/abnormal . RBC (test code = 2.90 See_Comment L [Automated 162-8) message] The sy stem which generated this [...] RDW-SD (test code = 49.5 fL 39.0-49.9 62593-7) RDW-CV (test code = 16.7 % 12.0-15.5 H 788-0) PLT (test code = 445 See_Comment H [Automated 777-3) message] The sy stem which generated this result transmitted reference range : 166 - 358 10*3/ ?L. The reference r stefanie was not used to interpret this result as normal/abnormal . MPV (test code = 9.4 fL 9.5-12.9 L 28632-5) NRBC/100 WBC (test 0.0 See_Comment [Automat ed code = 5578587856) message] The system which generated this result transmitted reference range : 0.0 - 10.0 /100 WBCs. The refer ence range was not u sed to interpret th is result as normal/abnormal . NRBC x10^3 (test code See_Comment [Auto mated = 8674914833) message] The s ystem which generated this result transmitted reference range : 10*3/?L. The reference range was not used to interpret this result as normal/abnormal . GRAN MAT (NEUT) % 81.4 % (test code = 770-8) IMM GRAN % (test code 1.30 % = 3540450873) LYMPH % (test code = 9.6 % 736-9) MONO % (test code = 5.7 % 5905-5) EOS % (test code = 1.5 % 713-8) BASO % (test code = 0.5 % 706-2) GRAN MAT x10^3(ANC) 6.84 10*3/uL 1.88-7.09 (test code = 6826869929) IMM GRAN x10^3 (test 0.11 10*3/uL 0.00-0.06 H code = 8070399202) LYMPH x10^3 (test code 0.81 10*3/uL 1.32-3.29 L = 731-0) MONO x10^3 (test code 0.48 10*3/uL 0.33-0.92 = 742-7) EOS x10^3 (test code = 0.13 10*3/uL 0.03-0.39 711-2) BASO x10^3 (test code 0.04 10*3/uL 0.01-0.07 = 704-7) Lab Interpretation Abnormal (test code = 76427-5) [facility]16 09:54:12 Test Item Value Reference Range Interpretation Comments CULTURE (BEAKER) (test No acid-fast bacilli code = 1095) isolated in 42 days AFB SMEAR (BEAKER) No acid fast bacilli (test code = 994) seen POCT-GLUCOSE [id number] 12:15:11 Test Item Value Reference Range Interpretation Comments POC-GLUCOSE METER 91 mg/dL 70-110 : TESTED A T [facility] 6720 (BEAKER) (test code = [facility], 1538) [id number]: [employer] Attendant/Techni waylon ID = [id number] for Trevon proctor (contract)Sean POCT-GLUCOSE [id number] 08:32:41 Test Item Value Reference Range Interpretation Comments POC-GLUCOSE METER 99 mg/dL 70-110 : TESTED A T [facility] 6720 (BEAKER) (test code = [facility], 1538) 40491: [employer] Attendant/Techni waylon ID = [id number] for Trevon proctor (contract), Sean [place] OSMOLALITY, [id number] 07:43:56 Test Item Value Reference Range Interpretation Comments OSMOLALITY, SERUM (BEAKER) (test 275 mOsm/kg 275-295 code = 615) BASIC METABOLIC [id number] 06:50:51 Test Item Value Reference Range Interpretation [...] not appl icable for dialysis patien ts Turnstile Attendant ID - MMCBC (HEMOGRAM ONLY)2023-02-15 06:34:01 Test [...] code = 413) URINALYSIS WITH MICROSCOPIC IF [id number] 03:40:39 Test Item Value Reference Range Interpretation [...] = 463) SOURCE(BEAKER) (test code = 2795) Turnstile Attendant ID - [auto]Turnstile Attendant ID - techURINALYSIS [id number] 03:40:39 Test Item Value Reference Range Interpretation Comments RBC UA (BEAKER) (test code = 519) 0 /HPF WBC UA (BEAKER) (test code = 520) 6 /HPF MUCUS (BEAKER) (test code = 1574) Rare SQUAMOUS EPITHELIAL (BEAKER) (test < /HPF code = 516) HYALINE CASTS (BEAKER) (test code = 5 /LPF 514) YEAST (BEAKER) (test code = 1585) Moderate Turnstile Attendant ID - techSODIUM, RANDOM [id number] 16:59:55 Test Item Value Reference Range Interpretation Comments SODIUM URINE (BEAKER) (test code = < meq/L 243) Reference Range: No NormalsOperator ID - ADMINUREA NITROGEN, RANDOM URINE 2023-02-14 16:54:48 Test Item Value Reference Range Interpretation Comments UREA NITROGEN URINE (BEAKER) (test 351 mg/dL code = 538) Reference Range: No NormalsOperator ID - ADMINCREATININE, RANDOM [id number] 16:54:47 Test Item Value Reference Range Interpretation Comments CREATININE URINE (BEAKER) (test 56.7 mg/dL code = 375) Reference Range: No NormalsOperator ID - ADMINOSMOLALITY, [id number] 16:45:55 Test Item Value Reference Range Interpretation Comments OSMOLALITY URINE 278 mOsm/kg See_Comment [Automated message] (BEEARL) (test code = The sy stem which 614) generated this result transmitted ref erence range: 50-1,200 mOsm/kg. The reference range was not used to int erpret this result as normal/abnormal . PET/CT, CARDIAC PERF REST AND [id number] 16:28:00Reason for exam:- >chronic chest pain [facility] 1975 Sex: FFINAL REPORT PROCEDURE: MYOCARDIAL PERFUSION PET/CT IMAGING (Rest/Stress)CPT CODE: 06021 INDICATION: Chest pain CARDIOVASCULAR PROFILE:CAD History: NoneSymptoms: [...] no prior study for comparison. Signed: Obi Pantoja MDReport Verified Date/Time: 02/14/2023 16:28:20 POCT-GLUCOSE [id number] 16:27:58 Test Item Value Reference Range Interpretation Comments POC-GLUCOSE METER 97 mg/dL 70-110 : TESTED A T [facility] 6720 (BEAKER) (test code = [facility], [facility]8) 14[address]: Turnstile Attendant/Techni waylon ID = [id number] for JUSTIN BOONE POCT-GLUCOSE [id number] 12:21:51 Test Item Value Reference Range Interpretation Comments POC-GLUCOSE METER 90 mg/dL 70-110 : TESTED A T [facility] 6720 (BEAKER) (test code = [facility], 1538) 73445: Turnstile Attendant/Techni waylon ID = [id number] for NICKIMj JUSTIN Cook POCT-GLUCOSE [id number] 09:05:54 Test Item Value Reference Range Interpretation Comments POC-GLUCOSE METER 82 mg/dL 70-110 : TESTED A T [facility] 6720 (BEAKER) (test code = [facility], 1538) 01670: Turnstile Attendant/Techni waylon ID = [id number] for NICKIMj JUSTIN Cook BASIC METABOLIC [id number] 07:13:51 Test Item Value Reference Range Interpretation [...] not appl icable for dialysis patien ts Turnstile Attendant ID - MMCBC (HEMOGRAM ONLY)2023-02-14 05:41:55 Test [...] CELL DISTRIBUTION 16.3 % 11.7-14.4 H [facility] (test code = 412) PLATELET COUNT 464 K/CU MM 150-450 H (BANNER) (test code = 756) MEAN PLATELET VOLUME 9.6 fL 9.4-12.3 (AKER) (test code = 754) NUCLEATED RED BLOOD 0 /100 WBC 0-0 CELLS (BANNER) (test code = 413) RETICULOCYTE [id number] 05:38:19 Test Item Value Reference Range Interpretation Comments RETICULOCYTE COUNT PCT (BANNER) (test 2.8 % 0.5-1.7 H code = 575) Turnstile Attendant ID - 6000POCT-GLUCOSE [id number] 22:02:01 Test Item Value Reference Range Interpretation Comments POC-GLUCOSE METER 100 mg/dL 70-110 : TESTED A T [facility] 6720 (BANNER) (test code = [facility], 153) 15295: Turnstile Attendant/Techni waylon ID = [id number] for Layne Feliz POCT-GLUCOSE [id number] 16:50:15 Test Item Value Reference Range Interpretation Comments POC-GLUCOSE METER 123 mg/dL 70-110 H : TESTED A T [facility] 6720 (BANNER) (test code = [facility], 1538) 50198: Turnstile Attendant/Techni waylon ID = [id number] for Ce rmen, Unity POCT-GLUCOSE [id number] 13:32:04 Test Item Value Reference Range Interpretation Comments POC-GLUCOSE METER 109 mg/dL 70-110 : TESTED A T [facility] 6720 (BANNER) (test code = [facility], 153) 45368: Turnstile Attendant/Techni waylon ID = [id number] for Ce rmen, Iliana POCT-GLUCOSE [id number] 09:53:32 Test Item Value Reference Range Interpretation Comments POC-GLUCOSE METER 84 mg/dL 70-110 : TESTED A T [facility] 6720 (BANNER) (test code = [facility], 153) 66739: Turnstile Attendant/Techni waylon ID = [id number] for Cerm en, Iliana POCT-GLUCOSE [id number] 09:35:47 Test Item Value Reference Range Interpretation Comments POC-GLUCOSE METER 71 mg/dL 70-110 : TESTED A T [facility] 6720 (BANNER) (test code = [place], 1538) 99880: Turnstile Attendant/Techni waylon ID = [id number] for Canon Andrew HEMOGLOBIN [id number] 08:56:23 Test Item Value Reference Range Interpretation Comments HEMOGLOBIN A1C 4.7 % See_Comment [Automated m essage] ELECTROPHORESIS ([employer]) The system which (test code = 3811) generated this result transmitted ref erence range: <=5.6%. The reference range was not used to int erpret this result as normal/abnormal . "The A1c is measured using a NGS-certified method. HbA1c value equal to or greater than 6.5% as thediagnosis cutoff for diabetes. An HbA1c value of 5.7- 6.4% indicates increased risk for diabetes (prediabetes)."Turnstile Attendant ID - ADMLIPID [id number] 06:37:27 Test Item Value Reference Range Interpretation Comments TRIGLYCERIDES ([employer]) 279 mg/dL Speci men slightly (test code = 540) hemolyzed CHOLESTEROL (GottaParkAKER) 169 mg/dL Specime n slightly (test code = 631) hemolyzed HDL CHOLESTEROL (GottaParkAKER) 58 mg/dL (test code = 976) LDL CHOLESTEROL 55 mg/dL CALCULATED ([employer]) (test code = 633) Triglyceride Reference Range: Low Risk <150 Borderline 150-199 High Risk 200- 499 Very High Risk >=500Cholesterol Reference Range: Low Risk <200 Borderline 200-239 High Risk >240HDL Cholesterol Reference Range: Low Risk >=60 High Risk <40LDL Cholesterol Reference Range: Optimal <100 Near Optimal 100-129 Borderline 130-159 High 160-189 Very High >=190 Turnstile Attendant ID - MARCOPROTHROMBIN [id number] 06:37:27 Test Item Value Reference Range Interpretation Comments PROTIME ([employer]) (test code = 15.7 seconds 11.9-14.2 H 759) INR ([employer]) (test code = 370) 1.33 <=5.90 RECOMMENDED COUMADIN/WARFARIN INR THERAPY RANGESSTANDARD DOSE: 2.0 - 3.0 Includes: PROPHYLAXIS for venous thrombosis, systemic embolization; TREATMENT for venous thrombosis and/or pulmonary embolus.HIGH RISK: Target INR is 2.5-3.5 for patients with mechanical heart valves.BASIC METABOLIC [id number] 06:37:26 Test Item Value Reference Range Interpretation [...] not appl icable for dialysis patien ts Turnstile Attendant ID - MARCOCBC (HEMOGRAM ONLY)2023-02-13 06:23:04 Test [...] CELLS (BEAKER) (test code = 413) RETICULOCYTE [id number] 06:20:29 Test Item Value Reference Range Interpretation Comments RETICULOCYTE COUNT PCT (BEAKER) (test 3.0 % 0.5-1.7 H code = 575) Turnstile Attendant ID - 6000POCT-GLUCOSE [id number] 21:33:00 Test Item Value Reference Range Interpretation Comments POC-GLUCOSE METER 97 mg/dL 70-110 : TESTED A T [facility] 6720 (BANNER) (test code = [facility], 153) 88922: Turnstile Attendant/Techni waylon ID = [id number] for Zuleika yin (contract)Marquis jose POCT-GLUCOSE [id number] 17:55:30 Test Item Value Reference Range Interpretation Comments POC-GLUCOSE METER 92 mg/dL 70-110 : TESTED A T [facility] 6720 (BEAKER) (test code = [facility], 1538) 91300: Turnstile Attendant/Techni waylon ID = [id number] for CHAN SDAVIDSREE POCT-GLUCOSE [id number] 12:08:19 Test Item Value Reference Range Interpretation Comments POC-GLUCOSE METER 98 mg/dL 70-110 : TESTED A T [facility] 6720 (BEAKER) (test code = [facility], 153) 88454: Turnstile Attendant/Techni waylon ID = [id number] for CHAN S, SREE POCT-GLUCOSE [id number] 09:08:40 Test Item Value Reference Range Interpretation Comments POC-GLUCOSE METER 82 mg/dL 70-110 : Notified RN/MD: TESTED (BEAKER) (test code = AT [facility] [address]) [place], [address]: Turnstile Attendant/Techni waylon ID = [id number] for SREE HERR BASIC METABOLIC [id number] 07:41:15 Test Item Value Reference Range Interpretation [...] not appl icable for dialysis patien ts Turnstile Attendant ID - [id number] 07:41:15 Test Item Value Reference Range Interpretation Comments LIPASE (BEAKER) (test code = 749) 30 U/L 8-78 Turnstile Attendant ID - MARCORETICULOCYTE [id number] 06:45:55 Test Item Value Reference Range Interpretation Comments RETICULOCYTE COUNT PCT (BEAKER) (test 2.7 % 0.5-1.7 H code = 575) Turnstile Attendant ID - [id number] (HEMOGRAM ONLY)2023-02-12 06:45:54 Test [...] 0-0 (BEAKER) (test code = 413) BLOOD [id number] 06:44:00 Test Item Value Reference Range Interpretation Comments Culture Observations (test NO GROWTH AFTER 5 code = COB1) DAYS BLOOD [id number] 06:44:00 Test Item Value Reference Range Interpretation Comments Culture Observations (test NO GROWTH AFTER 5 code = COB1) DAYS BLOOD GAS, [id number] 05:47:10 Test Item Value Reference Range Interpretation Comments PH VENOUS (BEAKER) (test code = 7.34 7.32-7.42 701) PCO2 VENOUS (BEAKER) (test code = 44 mm Hg 41-51 755) PO2 VENOUS (BEAKER) (test code = 29 mm Hg 25-40 702) O2 SATURATION VENOUS (BEAKER) 51.0 % 40.0-70.0 (test code = 703) HCO3 VENOUS (BEAKER) (test code = 23 mmol/L -29 705) BASE EXCESS VENOUS (BEAKER) (test -2.9 mmol/L -2.0-3.0 L code = 704) PATIENT TEMPERATURE (BEAKER) 37.0 (test code = 1818) FIO2 (BEAKER) (test code = 1819) 21.0 POCT-GLUCOSE [id number] 21:39:09 Test Item Value Reference Range Interpretation Comments POC-GLUCOSE METER 96 mg/dL 70-110 : TESTED A T [facility] 6720 (BEAKER) (test code = [facility], 1538) 85599: Turnstile Attendant/Techni waylon ID = [id number] for Darline winter (contract), Aus tin POCT-GLUCOSE [id number] 15:52:00 Test Item Value Reference Range Interpretation Comments POC-GLUCOSE METER 95 mg/dL 70-110 : TESTED A T [facility] 6720 (BEAKER) (test code = [facility], 1538) 19974: Turnstile Attendant/Techni waylon ID = [id number] for Trevon en (contract), Sean lancaster POCT-GLUCOSE [id number] 11:53:37 Test Item Value Reference Range Interpretation Comments POC-GLUCOSE METER 104 mg/dL 70-110 : TESTED A T [facility] 6720 (BEAKER) (test code = [facility], 1538) 66246: Turnstile Attendant/Techni waylon ID = [id number] for Marleni bess (contract), Sean lancaster POCT-GLUCOSE [id number] 08:07:33 Test Item Value Reference Range Interpretation Comments POC-GLUCOSE METER 85 mg/dL 70-110 : TESTED A T [facility] 6720 (BEAKER) (test code = [facility], 1538) 23877: Turnstile Attendant/Techni waylon ID = [id number] for Trevon en (contract), Sean lancaster INCUBATED 1:1 MIXING [id number] 07:27:12 Test Item Value Reference Range Interpretation Comments IMMEDIATE PT (BEAKER) 15.9 seconds 11.7-14.7 H (test code = 1487) IMMEDIATE PTT 37.7 seconds 22.5-36.0 H (BEAKER) (test code = 1488) IMMEDIATE 1:1 MIX PT 14.4 seconds 11.7-14.7 (BEAKER) (test code = 9317262238) IMMEDIATE 1:1 MIX PTT 32.7 seconds 22.5-36.0 (BEAKER) (test code = 7674525633) MIXING STUDY Prolonged PT and PATHOLOGIST PTT with complete INTERPRETATION correction (BEAKER) (test code = suggestive of [id number]) factor deficiency. [id number] Lynette (BEAKER) (test code = Marifer Ryder 2608) 1:1 MIX, 1 HOUR INC 14.1 seconds This is an PT (BEAKER) (test appended r eport. code = 1501) These results have been appended to a previously stefaon l verified report . 1:1 MIX, 1 HOUR INC 35.4 seconds This is an PTT (BEAKER) (test appended report. code = 1502) These results have been appended to a previously stefano l verified report . HIGH SENSITIVITY TROPONIN [id number] 03:27:38 Test Item Value Reference Range Interpretation Comments HIGH SENSITIVITY TROPONIN I (test 16 pg/ml <=17 code = 8635634) Turnstile Attendant ID - ADMINThe PRIVACY ANALYST STAT High Sensitivity Troponin-I results should be used in conjunction with other diagnostic information such as ECG, clinical observations and information, and patientsymptoms to aid in the diagnosis of [place]. BASIC METABOLIC [id number] 02:01:49 Test Item Value Reference Range Interpretation [...] not appl icable for dialysis patien ts Turnstile Attendant ID - ADMINCBC (HEMOGRAM ONLY)2023-02-11 01:36:32 Test [...] 0-0 (BEAKER) (test code = 413) POCT-GLUCOSE [id number] 19:58:20 Test Item Value Reference Range Interpretation Comments POC-GLUCOSE METER 104 mg/dL 70-110 : TESTED A T [facility] 6720 (BEAKER) (test code = [place], 1538) 0[address]: Turnstile Attendant/Techni waylon ID = [id number] for Pe rkins (contract), Mathew hall RAD, CHEST, 1 VIEW, NON [id number] 16:24:00Reason for exam:->Chest painShould this be performed at the bedside?->Yes [facility] 1975 Sex: FFINAL REPORT EXAM: Chest one view COMPARISON: February 08, 2023 CLINICAL HISTORY: Chest pain FINDINGS: Mild elevation the right hemidiaphragm is noted. There is interval resolution of the subsegmental atelectasis of the right midlung. The cardiac size is within normal limits. There isno evidence of pleural effusion or pneumothorax. The regional osseous structures are unremarkable. Signed: Yasmani Cunningham MDReport Verified Date/Time: 02/10/2023 16:24:35 -GLUCOSE [id number] 16:04:14 Test Item Value Reference Range Interpretation Comments POC-GLUCOSE METER 115 mg/dL 70-110 H : TESTED A T [facility] 6720 ([employer]) (test code = [employer] [facility], 1538) 02784: Turnstile Attendant/Techni waylon ID = [id number] for Marleni jamarihitesh (contract), Sean tonny POCT-GLUCOSE [id number] 12:08:06 Test Item Value Reference Range Interpretation Comments POC-GLUCOSE METER 99 mg/dL 70-110 : TESTED A T [facility] 6720 ([employer]) (test code = [facility] [employer] [facility], 1538) 00622: Turnstile Attendant/Techni waylon ID = [id number] for Trevon proctor (contract), Sean lancaster [id number] 10:48:19 Test Item Value Reference Range Interpretation Comments HAPTOGLOBIN (BEAKER) (test code = 255 mg/dL 14-258 366) Turnstile Attendant ID - ADMINPOCT-GLUCOSE [id number] 08:00:05 Test Item Value Reference Range Interpretation Comments POC-GLUCOSE METER 109 mg/dL 70-110 : TESTED A T [facility] 6720 (BEAKER) (test code = [place], 1538) 85948: Turnstile Attendant/Techni waylon ID = [id number] for Marleni bess (contract), Son tonny LACTATE DEHYDROGENASE (LDH)2023-02-10 07:41:26 Test Item Value Reference Range Interpretation Comments LACTATE DEHYDROGENASE (BEAKER) (test 322 U/L 125-220 H code = 635) Turnstile Attendant ID - ADMINBASIC METABOLIC [id number] 07:41:25 Test Item Value Reference Range Interpretation [...] not appl icable for dialysis patien ts Turnstile Attendant ID - ADMINBLOOD GAS, [id number] 07:02:24 Test Item Value Reference Range Interpretation [...] (BEAKER) (test code = 1819) 21.0 RETICULOCYTE [id number] 06:42:31 Test Item Value Reference Range Interpretation Comments RETICULOCYTE COUNT PCT (BEAKER) (test 2.5 % 0.5-1.7 H code = 575) Turnstile Attendant ID - [id number] W/PLT COUNT & AUTO [id number] 06:42:31 Test Item Value Reference Range Interpretation [...] (test code = 2801) HIGH SENSITIVITY TROPONIN [id number] 22:51:34 Test Item Value Reference Range Interpretation Comments HIGH SENSITIVITY TROPONIN I (test 20 pg/ml <=17 H code = 4446767) Turnstile Attendant ID - ADMINThe PRIVACY ANALYST STAT High Sensitivity Troponin-I results should be used in conjunction with other diagnostic information such as ECG, clinical observations and information, and patientsymptoms to aid in the diagnosis of [place]. RETICULOCYTE [id number] 22:23:10 Test Item Value Reference Range Interpretation Comments RETICULOCYTE COUNT PCT (BEAKER) (test 2.5 % 0.5-1.7 H code = 575) Turnstile Attendant ID - 6000POCT-GLUCOSE [id number] 21:44:14 Test Item Value Reference Range Interpretation Comments POC-GLUCOSE METER 119 mg/dL 70-110 H : TESTED A T [facility] 6720 (BEAKER) (test code = [facility], 1538) 10261: Turnstile Attendant/Techni waylon ID = [id number] for Sa varghese (contract), Aus tin LACTATE DEHYDROGENASE (LDH)2023-02-09 18:30:36 Test Item Value Reference Range Interpretation Comments LACTATE DEHYDROGENASE (BEAKER) (test 488 U/L 125-220 H code = 635) Turnstile Attendant ID - BSPOCT-GLUCOSE [id number] 17:15:56 Test Item Value Reference Range Interpretation Comments POC-GLUCOSE METER 132 mg/dL 70-110 H : TESTED A T [facility] 6720 (BEAKER) (test code = [facility], 1538) 22378: Turnstile Attendant/Techni waylon ID = [id number] for HI DALGO, AGLAE POCT-GLUCOSE [id number] 12:14:51 Test Item Value Reference Range Interpretation Comments POC-GLUCOSE METER 83 mg/dL 70-110 : TESTED A T [facility] 6720 (BEAKER) (test code = [facility], 1538) 82167: Turnstile Attendant/Techni waylon ID = [id number] for HIDA LGO, AGLAE POCT-GLUCOSE [id number] 08:14:53 Test Item Value Reference Range Interpretation Comments POC-GLUCOSE METER 74 mg/dL 70-110 : TESTED A T [facility] 6720 (BEAKER) (test code = [facility], 1538) 63418: Turnstile Attendant/Techni waylon ID = [id number] for HIDA LGO, AGLAE COMPREHENSIVE METABOLIC [id number] 06:54:13 Test Item Value Reference Range Interpretation [...] not appl icable for dialysis patien ts Turnstile Attendant ID - NEELAM WC (HEMOGRAM ONLY)2023-02-09 06:23:06 [...] 0-0 (BEAKER) (test code = 413) POCT-GLUCOSE [id number] 21:04:59 Test Item Value Reference Range Interpretation Comments POC-GLUCOSE METER 81 mg/dL 70-110 : TESTED A T [facility] 6720 (BEAKER) (test code = [facility], 153) 09553: Turnstile Attendant/Techni waylon ID = [id number] for Kalyani hampton (contract)Malick POCT-GLUCOSE [id number] 16:23:52 Test Item Value Reference Range Interpretation Comments POC-GLUCOSE METER 100 mg/dL 70-110 : TESTED A T [facility] 6720 (BEAKER) (test code = [facility], 153) 29211: Turnstile Attendant/Techni waylon ID = [id number] for Devora Hidalgo POCT-GLUCOSE [id number] 13:43:33 Test Item Value Reference Range Interpretation Comments POC-GLUCOSE METER 97 mg/dL 70-110 : TESTED A T [facility] 6720 (BEAKER) (test code = [facility], 1537) 40155: Turnstile Attendant/Techni waylon ID = [id number] for Devora Banks RAD, CHEST, 1 VIEW, NON [id number] 12:42:00Reason for exam:->pulm edemaShould this be performed at the bedside?->Yes [facility] 1975 Sex: FFINAL REPORT CLINICAL HISTORY: pulm edema TECHNIQUE: 1 view of the chest. COMPARISON: 01/24/2023 IMPRESSION: Left central line removal. Left greater than right mid and lower lung opacities have slightly decreased. No significant pleural fluid. The cardiomediastinal silhouette is magnified by technique. Signed: Tarun Lopez Verified Date/Time: 02/08/2023 12:42:14 Masteri rahel signed by: TARUN LOPEZ M.D. on 02/08/2023 12:42 PMPOCT-GLUCOSE METER 2023-02-08 09:58:38 Test Item Value Reference Range Interpretation Comments POC-GLUCOSE METER 82 mg/dL 70-110 : TESTED A T [facility] 6720 (BEAKER) (test code = [facility], 1538) 74115: Turnstile Attendant/Techni waylon ID = [id number] for Willian malcolmDevora COMPREHENSIVE METABOLIC [id number] 04:28:22 Test Item Value Reference Range Interpretation [...] not appl icable for dialysis patien ts Turnstile Attendant ID - NEELAM [facility] (HEMOGRAM ONLY)2023-02-08 03:53:45 Test Item Value Reference [...] 150-450 code = 756) MEAN PLATELET VOLUME (AKER) 9.4 fL 9.4-12.3 (test code = 754) NUCLEATED RED BLOOD CELLS 0 /100 WBC 0-0 (BEAKER) (test code = 413) POCT-GLUCOSE [id number] 20:17:35 Test Item Value Reference Range Interpretation Comments POC-GLUCOSE METER 134 mg/dL 70-110 H : TESTED A T [facility] 6720 (BANNER) (test code = [facility], [facility]) 08774: Turnstile Attendant/Techni waylon ID = [id number] for Jaspal cruz (contract), Mathew hall POCT-GLUCOSE [id number] 16:37:59 Test Item Value Reference Range Interpretation Comments POC-GLUCOSE METER 94 mg/dL 70-110 : TESTED A T [facility] 6720 (BANNER) (test code = [facility], [facility]) 89246: Turnstile Attendant/Techni waylon ID = [id number] for Sadi as ([facility]), Shewanna POCT-GLUCOSE [id number] 12:02:40 Test Item Value Reference Range Interpretation Comments POC-GLUCOSE METER 86 mg/dL 70-110 : TESTED A T [facility] 6720 (BANNER) (test code = [facility], [facility]) 50349: Turnstile Attendant/Techni waylon ID = [id number] for Sadi as ([facility]), Shewanna POCT-GLUCOSE [id number] 09:22:13 Test Item Value Reference Range Interpretation Comments POC-GLUCOSE METER 90 mg/dL 70-110 : TESTED A T [facility] 6720 (BANNER) (test code = [facility], [facility]) 06385: Turnstile Attendant/Techni waylon ID = [id number] for Kathy tone (contract), Set h Comprehensive metabolic [id number] 06:04:34 Test Item Value Reference Range Interpretation Comments Protein, Total (test 5.9 See_Comment L [Autom ated message] code = 2885-2) The system [facility] generated this result transmit tomy reference range : 6.0 - 8.3 gm/dL. Th e reference range was not used to interpret this result as normal/abnormal . Albumin (test code = 3.2 g/dL 3.5-5.0 L 63476-8) Alkaline Phosphatase 227 U/L 40-150 H (test code = 6768-6) Total Bilirubin (test 0.6 mg/dL 0.2-1.2 code = 1974-2) Sodium (test code = 133 meq/L 136-145 L 2951-2) Potassium (test code 4.3 meq/L 3.5-5.1 = 2823-3) Chloride (test code = 101 meq/L 98-107 5-0) CO2 (test code = 19 meq/L 22-29 L 2027-9) BUN (test code = 21 mg/dL 7-21 3094-0) Creatinine (test code 0.99 mg/dL 0.57-1.25 = 2160-0) Glucose (test code = 75 mg/dL 70-105 2345-7) Calcium (test code = 8.9 mg/dL 8.4-10.2 42043-7) AST (test code = 10 U/L 5-34 1920-8) ALT (test code = 10 U/L 6-55 1742-6) EGFR (test code = 70 mL/min/1[place] [address]-5) m eGFR values Sta ge Description Res [...] patien ts AREN (test code = AREN) Turnstile Attendant ID - NEELAM W Lab Interpretation Abnormal (test code = 30894-4) [facility] Test Item Value Reference Range Interpretation Comments Magnesium (test code = 1.6 mg/dL 1.6-2.6 01240-3) AREN (test code = AREN) Turnstile Attendant ID - NEELAM W Lab Interpretation (test Normal code = 82443-6) [facility] 06:04:34 Test Item Value Reference Range Interpretation Comments Phosphorus (test code = 5.7 mg/dL 2.3-4.7 H 2777-1) AREN (test code = AREN) Turnstile Attendant ID - NEELAM Hood Lab Interpretation (test Abnormal code = 77579-5) [facility] [id number] 06:04:34 Test Item Value Reference Range Interpretation [...] not appl icable for dialysis patien ts Turnstile Attendant ID - NEELAM [id number] 06:04:34 Test Item Value Reference Range Interpretation Comments MAGNESIUM (BEAKER) (test code = 1.6 mg/dL 1.6-2.6 627) [facility] Att[facility] ID - NEELAM [id number] 06:04:34 Test Item Value Reference Range Interpretation Comments PHOSPHORUS (BEAKER) (test code = 5.7 mg/dL 2.3-4.7 H 604) [facility] Att[facility] ID - NEELAM [id number] 05:37:39 Test Item Value Reference Range Interpretation [...] mechanical heart valves.CBC W/PLT COUNT & AUTO [id number] 05:11:46 Test Item Value Reference Range Interpretation [...] H PERCENT (BEAKER) (test code = 2801) LACTIC ACID, [id number] 05:06:29 Test Item Value Reference Range Interpretation Comments LACTATE BLOOD VENOUS (2) (BEAKER) 0.83 mmol/L 0.50-2.00 (test code = 2872) [facility] Attendant ID - NEELAM WCT, [id number] 03:57:00Unlisted Reason for Exam - Click Yes and Enter Reason Below->YesUnlisted Reason for Exam->Abd pain with history of perforation s/p recent small bowel resection with ileostomyProtocol Please Specify:->Standard ProtocolWill this procedure require oral contrast?->No [facility] : 1975 Sex: FFINAL [...] the FDA and the [employer] (CAP) are more stringent than those required for this test. Therefore, the result should be interpreted with caution and close attention to other clinical and epidemiological data CT CHEST W/O CONTRAST *OW*2023-02-06 19:51:19 [facility]: [facility] : 1975 Sex: FEXAMINATION:CTCHEST W/O [...] CHEST 1 VIEW PORTABLE *OW* 2023-02-06 18:55:09 [facility] LIZ[facility]ET [facility] : 1975 Sex: FEXAMINATION: XR CHEST 1 VIEWINDICATION: CoughCOMPARISON: None available at time of dictationLOCATION: [id number]/IMPRESSION: Mild patchy interstitial opacities of mid and lower left lung and to lesser extent at right lung base suspicious for pneumonia. No pleural effusion or pneumothorax. Normal cardiac silhouette.E lectronically signed by: Yesika Martines MD 02/06/2023 6:55 PM CDT 9373HWWGENERAL CHEMISTRY 13 *OW* [id number] 18:54:00 Test Item Value Reference Range Interpretation [...] 24 U/L 14-97 METLAC 12 PANEL *OW* [id number] 18:24:00 Test Item Value Reference Range Interpretation [...] 4.5 % 0.0-10.0 MetyLyte 8 Panel *OW* [id number] 18:19:00 Test Item Value Reference Range Interpretation [...] code = GTC02) 23 mmol/L 18-33 POC-Glucose [id number] 11:45:14 Test Item Value Reference Range Interpretation Comments POC-Glucose Meter (test 88 mg/dL 70-110 : TE STED AT [facility] code = 1538) [address] [facility], 770 30: Turnstile Attendant/Techni waylon ID = [id number] for JACQUELYN CARRILLO Lab Interpretation (test Normal code = 96381-1) [facility] [id number] 11:45:14 Test Item Value Reference Range Interpretation Comments POC-GLUCOSE METER 88 mg/dL 70-110 : TESTED A T [facility] 6720 (BEAKER) (test code = [facility], 1538) 00804: Turnstile Attendant/Techni waylon ID = [id number] for CHARLEY CHICAS POCT-GLUCOSE [id number] 08:03:21 Test Item Value Reference Range Interpretation Comments POC-GLUCOSE METER 78 mg/dL 70-110 : [facility] 6720 (BEAKER) (test code = [facility], 1538) 24077: Turnstile Attendant/Techni waylon ID = [id number] for CHARLEY CHICAS [id number] 06:39:49 Test Item Value Reference Range Interpretation Comments HAPTOGLOBIN (BEAKER) (test code = 260 mg/dL 14-258 H 366) Turnstile Attendant ID - ADMINLACTATE DEHYDROGENASE (LDH)2023-02-04 06:36:57 Test Item Value Reference Range Interpretation Comments LACTATE DEHYDROGENASE (BEAKER) (test 272 U/L 125-220 H code = 635) Turnstile Attendant ID - [id number] 06:36:56 Test Item Value Reference Range Interpretation Comments PHOSPHORUS (BEAKER) (test code = 4.8 mg/dL 2.3-4.7 H 604) Turnstile Attendant ID - [id number] 06:36:55 Test Item Value Reference Range Interpretation Comments MAGNESIUM (BEAKER) (test code = 2.0 mg/dL 1.6-2.6 627) Turnstile Attendant ID - mmCOMPREHENSIVE METABOLIC [id number] 06:36:54 Test Item Value Reference Range Interpretation [...] not appl icable for dialysis patien ts Turnstile Attendant ID - mmPT/[id number] 06:25:46 Test Item Value Reference Range Interpretation [...] mechanical heart valves.CBC W/PLT COUNT & AUTO [id number] 06:21:15 Test Item Value Reference Range Interpretation [...] (BEAKER) (test code = 2801) Prepare Leuko-Red [id number] 23:54:00 Test Item Value Reference Range Interpretation Comments Unit ABO (test code = O Pos 4945410) UNIT NUMBER (test code = [id number] 934-0) Status (test code = 6369812) TX_TIMEINCHART Blood Bank Product (test code RED BLOOD CELLS = 2263) PRODUCT CODE (test code = Z8136Z85 933-2) CROSSMATCH (test code = 2264) COMPATIBLE [facility] [id number] 21:08:01 Test Item Value Reference Range Interpretation Comments POC-GLUCOSE METER 100 mg/dL 70-110 : TESTED A T [facility] 6720 (BEAKER) (test code = [place], 1538) [address]: Turnstile Attendant/Techni waylon ID = [id number] for AN NORLILIANA, REMOVAL OF TUNNELED CVC W/O [id number] 17:10:00Reason for exam:- >Recovering renal function. No longer needs dialysisAnesthesia:->None [facility] SHASTA : 1975 Sex: FFINAL REPORT tunneled dialysis catheter removal. History: ALISSA requiring hemodialysis. Modality: None. Sedation: None. Strike Plate Attacher: Sancho Cronin PA-C Used Car Manager: None. Approach: Right anterolateral chest. Estimated blood loss: < 5 [...] department in the same condition. Impression: Successful, uncomplicated removal of a hemodialysis tunneled venous catheter. Signed: Matt Weaver Verified Date/Time: 02/03/2023 17:10:24 Reading Location: [facility] P006J Ultrasound Reading Room POCT-GLUCOSE [id number] 16:51:54 Test Item Value Reference Range Interpretation Comments POC-GLUCOSE METER 152 mg/dL 70-110 H : TESTED A T [facility] 6720 (BEAKER) (test code = [facility], 1538) 80334: Turnstile Attendant/Techni waylon ID = [id number] for Wi lkins, Naa POCT-GLUCOSE [id number] 11:51:03 Test Item Value Reference Range Interpretation Comments POC-GLUCOSE METER 110 mg/dL 70-110 : TESTED A T [facility] 6720 (BEAKER) (test code = [facility] Teikon [facility], 1538) 56970: Turnstile Attendant/Techni waylon ID = [id number] for Wi lkins, Naa POCT-GLUCOSE [id number] 09:28:46 Test Item Value Reference Range Interpretation Comments POC-GLUCOSE METER 98 mg/dL 70-110 : TESTED A T [facility] 6720 (BEAKER) (test code = [facility] Teikon [facility], 1538) 877[address]: Turnstile Attendant/Techni waylon ID = [id number] for Naa Wade LACTATE DEHYDROGENASE (LDH)2023-02-03 07:50:25 Test Item Value Reference Range Interpretation Comments LACTATE DEHYDROGENASE (BEAKER) (test 264 U/L 125-220 H code = 635) Turnstile Attendant ID - [id number] 07:50:24 Test Item Value Reference Range Interpretation Comments PHOSPHORUS (BEAKER) (test code = 4.8 mg/dL 2.3-4.7 H 604) Turnstile Attendant ID - [id number] 07:50:23 Test Item Value Reference Range Interpretation Comments MAGNESIUM (BEAKER) (test code = 1.3 mg/dL 1.6-2.6 L 627) Turnstile Attendant ID - ADMINCOMPREHENSIVE METABOLIC [id number] 07:50:22 Test Item Value Reference Range Interpretation [...] not appl icable for dialysis patien ts Turnstile Attendant ID - [id number] 06:39:57 Test Item Value Reference Range Interpretation Comments HAPTOGLOBIN (BEAKER) (test code = 260 mg/dL 14-258 H 366) Turnstile Attendant ID - ADMINPT/YXRW6589-70-07 06:17:10 Test Item Value Reference Range Interpretation [...] mechanical heart valves.CBC W/PLT COUNT & AUTO [id number] 06:12:49 Test Item Value Reference Range Interpretation [...] PERCENT (BEAKER) (test code = 2801) POCT-GLUCOSE [id number] 20:34:23 Test Item Value Reference Range Interpretation Comments POC-GLUCOSE METER 126 mg/dL 70-110 H : TESTED Bryan Becerril [facility] 6720 (BEAKER) (test code = [place], 1538) [address]: Turnstile Attendant/Techni waylon ID = [id number] for An Cash harrington POCT-GLUCOSE [id number] 16:32:56 Test Item Value Reference Range Interpretation Comments POC-GLUCOSE METER 107 mg/dL 70-110 : TESTED A T [facility] 6720 (BEAKER) (test code = [facility], 1538) 12238: Turnstile Attendant/Techni waylon ID = [id number] for STAS MADERA Antibody [id number] 15:43:00 Test Item Value Reference Range Interpretation Comments ANTIBODY ID WARM AUTO AB (BEAKER) (test code = 2253) Antibody Consult SIGNED OUT Warm panagg lutinin (test code = 2479) detected, ok to transfuse incom patible blood.Electroni c Signature: Kayla Ryder MD [facility]POCT[facility] [id number] 12:19:17 Test Item Value Reference Range Interpretation Comments POC-GLUCOSE METER 94 mg/dL 70-110 : TESTED A T [facility] 6720 (BEAKER) (test code = [facility], 1538) 78654: Turnstile Attendant/Techni waylon ID = [id number] for STAS SWEET POCT-GLUCOSE [id number] 08:17:54 Test Item Value Reference Range Interpretation Comments POC-GLUCOSE METER 76 mg/dL 70-110 : TESTED A T [facility] 6720 (BEAKER) (test code = [facility], 1538) 95028: Turnstile Attendant/Techni waylon ID = [id number] for STAS SWEET [id number] 07:11:15 Test Item Value Reference Range Interpretation Comments PHOSPHORUS (BEAKER) (test code = 4.5 mg/dL 2.3-4.7 604) Turnstile Attendant ID - MARCOLACTATE DEHYDROGENASE (LDH)2023-02-02 07:11:15 Test Item Value Reference Range Interpretation Comments LACTATE DEHYDROGENASE (BEAKER) (test 319 U/L 125-220 H code = 635) Turnstile Attendant ID - [id number] 07:11:14 Test Item Value Reference Range Interpretation Comments MAGNESIUM (BEAKER) (test code = 1.4 mg/dL 1.6-2.6 L 627) Turnstile Attendant ID - MARCOCOMPREHENSIVE METABOLIC [id number] 07:11:13 Test Item Value Reference Range Interpretation [...] not appl icable for dialysis patien ts Turnstile Attendant ID - WPEUULHSZBCPKESY0668-07-29 06:39:13 Test Item Value Reference Range Interpretation Comments HAPTOGLOBIN (BEAKER) (test code = 256 mg/dL 14-258 366) Turnstile Attendant ID - ADMINCBC W/PLT COUNT & AUTO [id number] 06:28:23 Test Item Value Reference Range Interpretation [...] IMMATURE GRANULOCYTES-RELATIVE 4.80 % 0.00-1.00 H PERCENT (RHEA) (test code = 2801) [id number] 06:24:46 Test Item Value Reference Range Interpretation Comments PROTIME (BEEARL) (test code = 14.9 seconds 11.9-14.2 H 759) INR (BEEARL) (test code = 370) 1.24 <=5.90 PARTIAL THROMBOPLASTIN TIME 39.1 seconds 22.5-36.0 H (BEAKER) (test code = 760) RECOMMENDED COUMADIN/WARFARIN INR THERAPY RANGESSTANDARD DOSE: 2.0 - 3.0 Includes: PROPHYLAXIS for venous thrombosis, systemic embolization; TREATMENT for venous thrombosis and/or pulmonary embolus.HIGH RISK: Target INR is 2.5-3.5 for patients with mechanical heart valves.POCT-GLUCOSE [id number] 21:16:05 Test Item Value Reference Range Interpretation Comments POC-GLUCOSE METER 93 mg/dL 70-110 : TESTED A T [facility] 6720 ([employer]) (test code = [facility], [facility]) 98923: Turnstile Attendant/Techni waylon ID = [id number] for LILIANA RUSSELL POCT-GLUCOSE [id number] 17:29:03 Test Item Value Reference Range Interpretation Comments POC-GLUCOSE METER 124 mg/dL 70-110 H : TESTED A T [facility] 6720 ([employer]) (test code = [facility], [facility]) 94083: Turnstile Attendant/Techni waylon ID = [id number] for FE JAMARIER ONELIA POCT-GLUCOSE [id number] 12:04:10 Test Item Value Reference Range Interpretation Comments POC-GLUCOSE METER 151 mg/dL 70-110 H : TESTED A T [facility] 6720 (BEAKER) (test code = [facility], 1538) 39043: Turnstile Attendant/Techni waylon ID = [id number] for Naa Christian POCT-GLUCOSE [id number] 08:17:34 Test Item Value Reference Range Interpretation Comments POC-GLUCOSE METER 93 mg/dL 70-110 : TESTED A T [facility] 6720 (BEElliptic) (test code = [facility], 1538) 42630: Turnstile Attendant/Techni waylon ID = [id number] for Will iams, Areiona [id number] 06:55:58 Test Item Value Reference Range Interpretation Comments HAPTOGLOBIN (BEAKER) (test code = 243 mg/dL 14-258 366) Turnstile Attendant ID - BSLACTATE DEHYDROGENASE (LDH)2023-02-01 06:40:35 Test Item Value Reference Range Interpretation Comments LACTATE DEHYDROGENASE 336 U/L 125-220 H Specim en slightly (BEAKER) (test code = hemoly zed 635) Turnstile Attendant ID - [id number] 06:40:11 Test Item Value Reference Range Interpretation Comments PHOSPHORUS (BEAKER) 4.5 mg/dL 2.3-4.7 Specimen slightly (test code = 604) hemolyzed Turnstile Attendant ID - MMCOMPREHENSIVE METABOLIC [id number] 06:40:11 Test Item Value Reference Range Interpretation [...] not appl icable for dialysis patien ts Turnstile Attendant ID - [id number] 06:40:10 Test Item Value Reference Range Interpretation Comments MAGNESIUM (BEAKER) 1.6 mg/dL 1.6-2.6 Specimen slightly (test code = 627) hemolyzed Turnstile Attendant ID - MMPT/[id number] 06:39:30 Test Item Value Reference Range Interpretation [...] mechanical heart valves.CBC W/PLT COUNT & AUTO [id number] 06:29:14 Test Item Value Reference Range Interpretation [...] PERCENT (BEAKER) (test code = 2801) Anaerobic [id number] 22:20:50 Test Item Value Reference Range Interpretation Comments Result (test code = No anaerobes isolated 6463-4) [facility]ER[facility] [id number] 22:20:50 Test Item Value Reference Range Interpretation Comments CULTURE (BEAKER) (test No anaerobes isolated code = 1095) POCT-GLUCOSE [id number] 21:24:10 Test Item Value Reference Range Interpretation Comments POC-GLUCOSE METER 146 mg/dL 70-110 H : TESTED A T [facility] 6720 (BEAKER) (test code = [facility], 1538) 23097: Turnstile Attendant/Techni waylon ID = [id number] for LILIANA LAMB POCT-GLUCOSE [id number] 15:44:11 Test Item Value Reference Range Interpretation Comments POC-GLUCOSE METER 100 mg/dL 70-110 : TESTED A T [facility] 6720 (BEAKER) (test code = [facility], 1538) 19906: Turnstile Attendant/Techni waylon ID = [id number] for Re Yovanny hernandez POCT-GLUCOSE [id number] 11:29:58 Test Item Value Reference Range Interpretation Comments POC-GLUCOSE METER 85 mg/dL 70-110 : TESTED A T [facility] 6720 (BEAKER) (test code = [facility], 1538) 47231: Turnstile Attendant/Techni waylon ID = [id number] for Yovanny Keating POCT-GLUCOSE [id number] 07:50:42 Test Item Value Reference Range Interpretation Comments POC-GLUCOSE METER 79 mg/dL 70-110 : TESTED A T [facility] 6720 (BEAKER) (test code = [facility], 1538) 61999: Turnstile Attendant/Techni waylon ID = [id number] for Yovanny Keating RETICULOCYTE [id number] 07:48:05 Test Item Value Reference Range Interpretation Comments RETICULOCYTE COUNT PCT (BEAKER) (test 2.4 % 0.5-1.7 H code = 575) Turnstile Attendant ID - [id number] DEHYDROGENASE (LDH)2023-01-31 07:15:11 Test Item Value Reference Range Interpretation Comments LACTATE DEHYDROGENASE (BEAKER) (test 312 U/L 125-220 H code = 635) Turnstile Attendant ID - SARAY [id number] 07:15:10 Test Item Value Reference Range Interpretation Comments PHOSPHORUS (BEAKER) (test code = 3.8 mg/dL 2.3-4.7 604) Turnstile Attendant ID - SARAY [id number] 07:15:09 Test Item Value Reference Range Interpretation Comments MAGNESIUM (BEAKER) (test code = 1.8 mg/dL 1.6-2.6 627) Turnstile Attendant ID - SARAY BCOMPREHENSIVE METABOLIC [id number] 07:15:08 Test Item Value Reference Range Interpretation [...] not appl icable for dialysis patien ts Turnstile Attendant ID - SARAY [id number] 07:11:44 Test Item Value Reference Range Interpretation Comments HAPTOGLOBIN (BEAKER) (test code = 243 mg/dL 14-258 366) Turnstile Attendant ID - SARAY BPT/LRSU8929-84-91 06:55:39 Test Item Value Reference Range Interpretation [...] mechanical heart valves.CBC W/PLT COUNT & AUTO [id number] 06:33:20 Test Item Value Reference Range Interpretation [...] PERCENT (BEAKER) (test code = 2801) POCT-GLUCOSE [id number] 21:43:27 Test Item Value Reference Range Interpretation Comments POC-GLUCOSE METER 94 mg/dL 70-110 : TESTED A T [facility] 6720 (BEAKER) (test code = [facility], 1538) 24656: Turnstile Attendant/Techni waylon ID = [id number] for STAS ALONZO POCT-GLUCOSE [id number] 16:10:02 Test Item Value Reference Range Interpretation Comments POC-GLUCOSE METER 129 mg/dL 70-110 H : TESTED A T [facility] 6720 (BEAKER) (test code = [facility], 1538) 54503: Turnstile Attendant/Techni waylon ID = [id number] for Yovanny Cox [id number] 13:11:35 Test Item Value Reference Range Interpretation Comments HAPTOGLOBIN (BEAKER) (test code = 246 mg/dL 14-258 366) Turnstile Attendant ID - ADMINPOCT-GLUCOSE [id number] 11:31:22 Test Item Value Reference Range Interpretation Comments POC-GLUCOSE METER 90 mg/dL 70-110 : TESTED A T [facility] 6720 (BEAKER) (test code = [place], 1538) 52194: Turnstile Attendant/Techni waylon ID = [id number] for Yovanny Keating POCT-GLUCOSE [id number] 07:42:16 Test Item Value Reference Range Interpretation Comments POC-GLUCOSE METER 78 mg/dL 70-110 : TESTED A T [facility] 6720 (BEAKER) (test code = [facility] [place] [facility], 1538) 57051: Turnstile Attendant/Techni waylon ID = [id number] for Yovanny Keating (CELLAVISION MANUAL DIFF)2023-01-30 07:04:24 [...] CONCENTRATION Adequate (CELLAVISION)(BEAKER) (test code = 3438) Turnstile Attendant ID - [id number] ID - saray Chen comments: Slide comments:CBC W/PLT COUNT & AUTO [id number] 07:04:22 Test Item Value Reference Range Interpretation [...] 305 U/L 125-220 H code = 635) Turnstile Attendant ID - [id number] 05:59:13 Test Item Value Reference Range Interpretation Comments PHOSPHORUS (BEAKER) (test code = 2.7 mg/dL 2.3-4.7 604) Turnstile Attendant ID - MDELUTSMXBSYVK8984-02-65 05:59:12 Test Item Value Reference Range Interpretation Comments MAGNESIUM (BEAKER) (test code = 1.8 mg/dL 1.6-2.6 627) Turnstile Attendant ID - MARCOCOMPREHENSIVE METABOLIC [id number] 05:59:11 Test Item Value Reference Range Interpretation [...] not appl icable for dialysis patien ts Turnstile Attendant ID - MARCOPT/PSRE1857-36-43 05:42:43 Test Item Value Reference Range Interpretation Comments PROTIME ([employer]) (test code = 14.1 seconds 11.9-14.2 759) INR (BEAKER) (test code = 370) 1.11 <=5.90 PARTIAL THROMBOPLASTIN TIME 37.9 seconds 22.5-36.0 H (BEAKER) (test code = 760) RECOMMENDED COUMADIN/WARFARIN INR THERAPY RANGESSTANDARD DOSE: 2.0 - 3.0 Includes: PROPHYLAXIS for venous thrombosis, systemic embolization; TREATMENT for venous thrombosis and/or pulmonary embolus.HIGH RISK: Target INR is 2.5-3.5 for patients with mechanical heart valves.POCT-GLUCOSE [id number] 21:54:07 Test Item Value Reference Range Interpretation Comments POC-GLUCOSE METER 82 mg/dL 70-110 : TESTED A T [facility] 6720 ([employer]) (test code = [facility] Teikon [facility], 1538) 96618: Turnstile Attendant/Techni waylon ID = [id number] for STAS ALONZO POCT-GLUCOSE [id number] 16:27:58 Test Item Value Reference Range Interpretation Comments POC-GLUCOSE METER 128 mg/dL 70-110 H : TESTED A T [facility] 6720 ([employer]) (test code = [facility], 1538) 74273: Turnstile Attendant/Techni waylon ID = [id number] for Lo Chava olivarezi POCT-GLUCOSE [id number] 12:16:46 Test Item Value Reference Range Interpretation Comments POC-GLUCOSE METER 102 mg/dL 70-110 : TESTED A T [facility] 6720 ([employer]) (test code = [facility], 1538) 20740: Turnstile Attendant/Techni waylon ID = [id number] for PE DIONNE PRADO (CELLAVISION MANUAL DIFF)2023-01-29 [...] CONCENTRATION Adequate (CELLAVISION)(BEAKER) (test code = 3438) Turnstile Attendant ID - Santa OverholtUser comments: Slide comments:CBC W/PLT COUNT & AUTO [id number] 09:50:51 Test Item Value Reference Range Interpretation [...] 0-0 (BEAKER) (test code = 413) POCT-GLUCOSE [id number] 07:48:29 Test Item Value Reference Range Interpretation Comments POC-GLUCOSE METER 76 mg/dL 70-110 : TESTED A T [facility] 6720 (BEAKER) (test code = [place], 1538) 28962: Turnstile Attendant/Techni waylon ID = [id number] for Nilda Bee LACTATE DEHYDROGENASE (LDH)2023-01-29 07:03:52 Test Item Value Reference Range Interpretation Comments LACTATE DEHYDROGENASE (BEAKER) (test 357 U/L 125-220 H code = 635) Turnstile Attendant ID - [id number] 07:03:51 Test Item Value Reference Range Interpretation Comments PHOSPHORUS (BEAKER) (test code = 2.6 mg/dL 2.3-4.7 604) Turnstile Attendant ID - ADMINCOMPREHENSIVE METABOLIC [id number] 07:03:50 Test Item Value Reference Range Interpretation [...] not appl icable for dialysis patien ts Turnstile Attendant ID - [id number] 07:03:49 Test Item Value Reference Range Interpretation Comments MAGNESIUM (BEAKER) (test code = 2.0 mg/dL 1.6-2.6 627) Turnstile Attendant ID - CKEGKXORTTCFSMHR9271-19-47 06:40:14 Test Item Value Reference Range Interpretation Comments HAPTOGLOBIN (BEAKER) (test code = 253 mg/dL 14-258 366) Turnstile Attendant ID - BSPT/[id number] 06:29:50 Test Item Value Reference Range Interpretation [...] 2.5-3.5 for patients with mechanical heart valves.CALCIUM, [id number] 05:57:25 Test Item Value Reference Range Interpretation Comments CALCIUM IONIZED (BEAKER) (test 1.12 mmol/L 1.12-1.27 code = 698) PH, BLOOD (BEAKER) (test code = 7.40 1810) POCT-GLUCOSE [id number] 22:08:36 Test Item Value Reference Range Interpretation Comments POC-GLUCOSE METER 115 mg/dL 70-110 H : TESTED A T [facility] 6720 (BEAKER) (test code = [facility], 1538) 94223: Turnstile Attendant/Techni waylon ID = [id number] for STAS BERG POCT-GLUCOSE [id number] 15:54:15 Test Item Value Reference Range Interpretation Comments POC-GLUCOSE METER 140 mg/dL 70-110 H : TESTED A T [facility] 6720 (BEAKER) (test code = [facility], 1538) 17788: Turnstile Attendant/Techni waylon ID = [id number] for Yovanny Cox Body fluid culture + gram [id number] 15:25:52 Test Item Value Reference Range Interpretation Comments Result (test code = 6463-4) No growth Lab Interpretation (test code = Normal 59897-7) [facility] [id number] 15:25:52 Test Item Value Reference Range Interpretation Comments CULTURE (BEAKER) (test code = 1095) No growth SARS-CoV2/RT-PCR (Asymptomatic ONLY)2023-01-28 13:16:20 Test Item Value Reference Interpretation Comments Range SARS-COV2/RT-PCR Negative Negative The SARS-Co V-2 (test code = target nucleic 79772-7) acids are not detected in thi s [...] revoked sooner. Fact Sheet for Healthcare Providers: https://www.Evirx/Documents/Xp ert%20Xpress%20SAR S%20CoV-2/Fact%20S heets/302-3802%20S ARS-COV-2%20HEALTH CARE%20PROVIDERS%2 0FACT%20SHEET.pdf Fact Sheet for Healthcare Patients: https://www.Evirx/Documents/Xp ert%20Xpress%20SAR S%20CoV-2/Fact%20S heets/302-3801%20S ARS-COV-2%20PATIEN T%20FACT%20SHEET.p df Lab Interpretation Normal (test code = 16020-8) [facility])2023-01-28 13:16:20 Test Item Value Reference Range Interpretation Comments SARS-COV2/RT-PCR Negative Negative The SARS-Co V-2 target (test code = nucleic acids a re not 0409913) detected in thi s specimen. Negative result [...] revoked sooner. Fact Sheet for Healthcare Providers: https://www.VocalZoom.EternoGen om/Documents/Xpert%20Xpress%20SARS%20CoV-2/Fact%20Sheets/302-3802%06PNVL-QTE-0%2 0HEALTHCARE%20PROVIDERS%20FACT%20SHEET.pdf Fact Sheet for Healthcare Patients: https://www.SolveBoard/Documents/Xpert%20X press%20SARS%20CoV-2/Fact%20Sheets/302-3801%83IIIR-FWB-9%20PATIENT%20FACT%20SHEE T.yikBLDDJOCIUHZ8776-91-52 11:54:41 Test Item Value Reference Range Interpretation Comments HAPTOGLOBIN (RHEA) (test code = 227 mg/dL 14-258 366) Turnstile Attendant ID - SARAY BPOCT-GLUCOSE [id number] 11:42:28 Test Item Value Reference Range Interpretation Comments POC-GLUCOSE METER 114 mg/dL 70-110 H : TESTED A T [facility] 6720 (RHEA) (test code = [facility], 1538) [address]: Turnstile Attendant/Techni waylon ID = [id number] for Yovanny Cox RETICULOCYTE [id number] 08:06:13 Test Item Value Reference Range Interpretation Comments RETICULOCYTE COUNT PCT (BEAKER) (test 2.9 % 0.5-1.7 H code = 575) Turnstile Attendant ID - [id number] [id number] 07:43:33 Test Item Value Reference Range Interpretation Comments POC-GLUCOSE METER 86 mg/dL 70-110 : TESTED A T [facility] 6720 (BEAKER) (test code = [facility], 1538) [address]: Turnstile Attendant/Techni waylon ID = [id number] for Yovanny Keating LACTATE DEHYDROGENASE (LDH)2023-01-28 06:26:05 Test Item Value Reference Range Interpretation Comments LACTATE DEHYDROGENASE (BEAKER) (test 343 U/L 125-220 H code = 635) Turnstile Attendant ID - [id number] 06:26:04 Test Item Value Reference Range Interpretation Comments PHOSPHORUS (BEAKER) (test code = 2.5 mg/dL 2.3-4.7 604) Turnstile Attendant ID - [id number] 06:26:03 Test Item Value Reference Range Interpretation Comments MAGNESIUM (BEAKER) (test code = 2.4 mg/dL 1.6-2.6 627) Turnstile Attendant ID - MMCOMPREHENSIVE METABOLIC [id number] 06:26:02 Test Item Value Reference Range Interpretation [...] not appl icable for dialysis patien ts Turnstile Attendant ID - MMPT/IIQO3595-71-46 06:16:29 Test Item Value Reference Range Interpretation [...] mechanical heart valves.CBC W/PLT COUNT & AUTO [id number] 06:05:35 Test Item Value Reference Range Interpretation [...] 0.00-1.00 H PERCENT (BEAKER) (test code = 2802) CALCIUM, [id number] 06:01:13 Test Item Value Reference Range Interpretation Comments CALCIUM IONIZED (BEAKER) (test 1.15 mmol/L 1.12-1.27 code = 698) PH, BLOOD (BEAKER) (test code = 7.40 1810) POCT-GLUCOSE [id number] 21:50:07 Test Item Value Reference Range Interpretation Comments POC-GLUCOSE METER 113 mg/dL 70-110 H : [facility] (BEAKER) (test code = [facility], 1538) 600[address]: Turnstile Attendant/Techni waylon ID = [id number] for Ca Yariel srinivasan POCT-GLUCOSE [id number] 16:53:43 Test Item Value Reference Range Interpretation Comments POC-GLUCOSE METER 109 mg/dL 70-110 : [facility] (BEAKER) (test code = [facility], 1538) 98184: Turnstile Attendant/Techni waylon ID = [id number] for PE DIONNE PRADO [id number] 12:46:42 Test Item Value Reference Range Interpretation Comments Case Report (test code Medical Cytology = 104) Report Case: [id number] Authorizing Provider: Carlos Estrada MD Collected: 01/25/2023 03:39 PM Ordering Location: [address] Received: 01/26/2023 08:50 AM Service Pathologist: Daija Lennon MD Specimen: Peritoneal Fluid DIAGNOSTIC CATEGORY NEGATIVE FOR (test code = 2754) MALIGNANCY DIAGNOSIS (test code = m7zxhWCyCHOck0dzHVEleE 3220) FuZzEwMzNcZnRuYmpcdWMx IHtccnRmMVxlcGljMTAyMD SbKV0pzNantXe7hRvtGOIy idZ1xGGqPKzkm3wxSKG7g5 hwfctmOBKiGTpqPx0ptITk zDdhCgAyEVRtODv3cN62FY UmnZ2ubWIkOYj4ZGTpkOXm vrNcGsZvBKSgyQXewID0TA LzWD8cwxbuKEjlNMqfAWVd thU7RJHmbIXeE7IxFEQoKI 2pyezkSGE2JHjfWTZqAZR7 MfQxITQti7Qufgv8RbGgsQ FyZFxwbGFpblxmczIwIFBF IjlNT54PAOwgCwmHHUXsZY WOMW3MBUaLHdJYPsCbW6SB PVBYTJ9NXrn1TDdeqjWtlJ KsFF1XVLbhoAb7TOGep9Xn nCGmbSlhHC4lyMcxCFOrOQ YuqI4fAN91PY5kgAOqi3Oq hBrzPBtuRWHkAeHpy2xwv3 VuZCBvZiBtZXNvdGhlbGlh lXLwYSlrv9omZCW0i9wuvK YxXHNzdGUxODAwMFxhbnNp AZKzSdjlfocrJPSaGKB1ae YxVHOvPSqrZLYdMRttTb1p qTNfkGzaDzUqUTVgk2zkks RRncehrJh9i8wsQOSjCwK9 tABhPVuyI8vilqIyjJSlUE ZhRYk4uY62EVXjbB0dyEYf DNcwbkVuWoD5QDxiLVBmVf H1MQQfyCKcPVOdI0frGJLx GXfkMCYnGLjouXPkHNG9cS tex9T9gDHorVCtrCrsBgQi WjSxScVKf3FgNSm8uMbaC5 YoKGPhIiF0xGBiCOFtILxb WVLeAXGsxfA7gG22DYbfxu A1mQIlx9Hfc72vx846rW2b vUAzWSY6HHIiVRTvqBTaMU WaQAI0WYDfuOWbC0dmBNWi KE3xxnzwPRkhUBokHCWohC F8WBHydKTjS1TqXQBbYTsz PLNmfua5PaApZv5zyLDuaL ymFFtsi7udf4qroQGmLla1 SWZoKxJtBhjvRGfnm4Ggm5 fsCJFwjr8kNGQ5dAOynFda f6I5ePYvCIKudDNfGHPqAC 7bfCEiYMWnwS9enqtqLKUm YnJkcmhlYWRccGdicmRyZm 1csLsgPRL9EMzvK3rgvU7l CcY5HSglX8dxfS2rAPk8FG zlERLoeCT1qlP9RKCouWBk J4EcuO5yNRAlZI1urbd0o0 ciSXF5EYwsJSAzOoG7khZ8 NDBcaGVhZGVyeTcyMFxmb2 87YJX4AoHtOKHbp0KdB7Vy dQsqY57rdMezX38tSRLhbK mjsW6ncSubfX8zTjWpScSd POazgZgjRM9zUMCkT6qkbG OyJAToIZJuJ5wsHqBopJ7t uTtgJNrejeJxUQQjHey5VJ JldZImCZDiGpf0XKIiAYNv D24rnamiHUZ2rX7xg1efd9 VvMMkmSVA0UQCgh47vRNvv qxJ7AVubJw20ZRwlPLE9SP iaDYV1aY== CPT Code(s) (test code f3kbcUVhAFLmnOJaSIBnLV = 8052) oxtwAlNXViaFXwS8Igquae RLivYY4lVD0hmQtyrNVdkN PdWIDhMgLir5fak845dOIj t5mkONKYtcfksKb0tBhdV0 7lo5K4TvfeL48gnRJbUBE0 OLPpGLSesREpJEDiSME0UG YzcVNnQ6ypDVSxFK1rgiyl ECgnSCpwPZVgkTD9USYvyZ XpL9EoCTQeLGzkECWhoeq6 TjVcLa0tmPStsZclECpgZS JkXHBsYWluXGZzMjAgODgx PVbxZNd5IxR8QNRbgl9= CLINICAL DATA (test y4bqmIUvVSMsoUDsMRGtFV code = 3355) yreeZhTITdsFGpJ4Oabtzf HUilTV5zMP6zhYhzmAUqkE MmMMKpBwKpa3trc943uTIb o2yfIIOKlrmfyMg0hWfgO0 4fk9L2InpnV2wpCPNpUFar JEKfSKmlaRMkFQt2GCQetE VydzEyMjQwXHBhcGVyaDE1 ETUrNA8ucuttASauHQwrFQ GueoM2WNDdjRUkD9GsDXVh XN9owmurIDF0EBmdZGMtAZ X5FeNvCSTzt4Atahd2UhUc cGFyZFxwbGFpblxmczIwXG XvENQ1VBK9Xl8pTU7bZT9z dNIgkgupuDkpX42dgTofhO SROEqcmm57RVEoRAVuc5Id EVwQXEX5aL1yu2LyRKPuVH Pye0QkrSflDQJlcPR0FTIx lP7xXWLcZLG1nWRuJTwSRH Sxd6QoKVcUOYPniMRsCMIa L5FeI9CsKIwyOA0oJIytZF tJIHJlcXVpcmluZyBIRCwg TX3sWWPOAT8tnummVsXxJ9 WcFCDwrSgwOXVfEc7aYB52 y4HuGM3ukitty8YaqZLnUD Yecd8uwDJydXYrf6tooUMj dCBhYmRvbWluYWwgcGFpbi PxclUfZUBiUKWerEO0FZ5d fC7qLAZxlP8ut3LuDZPvSK TsriO6mE9wBGCurN2xVVYm LlxwYXJ9 SPECIMEN SOURCE (test k8jdtLYgICZxwVKzODIhRA code = 6777) ausqMuFXQojLVqT4Zwnrpa TDkoEX7sUY1egXzmaUTppQ StQXMuNmQwk1wmn312fQRq y4xzLLCMdsecgMz0pSqvT2 6ap6N6WblkY85fkOUuNHQ1 JFXlZXSjwVAxHCIsGRJ5ZR NztHFkB3bgRSHkYY5ylfnj XXgnVAtzXBApkBV2ZDJjyO WqF6GnSSKaZOkpXOKwppa1 NlGlLz0xmVXokGleHNatOX JkXHBsYWluXGZzMjAgUEVS SVRPTkVBTCBGTFVJRFxwYX J9 GROSS DESCRIPTION (test p8jyzKYnMJNciKUVZIIgHZ code = 7136153201) EkYE2djPdglCr9sTjoUQJt tcQ9vNKiIKacy8rnNRD7y4 oorvEILwroOHKrJW8zWWxl QIRfBZ1cCaFkIIGqEvUkTH BhcGVydzEyMjQwXHBhcGVy jCJ2ZNXkEZ1drgppJOaoIX suYKRcpvI3JCIndOYuZ8Hb HWCdJK4djfzlPLZ2ZZZJCp rtSz9rmUWlcMaaSlVjKgNp YXJzZXQwXGZuaWwgQXJpYW x9xV8VJtugPOS2XYNBVcyy EmrwaSacm7VifNLiQWCmGY xcaWQgNTEwMDAgXFxkYiBP QsWaYxI8MgIlZdaxUnQ4ON y7ZUBKBBOdJEU2JUXaGkR7 OAp9LRFcXH7eGBdfuHQnHX pdXalyYHeiR514WGzmJPAz B0RsH9IwNOrwTnEkHGnzXO PrBGMpNYgnTTSpQ5MEISQa FQIeCvF3JsAvESq4CZblN4 OGWXSpUJD8BZP4NHv9WpK3 SHm5IUCZVr6uTjT4OtO9HM FnLLQ1QUA5MApuhRZzDSbs x9XpSmPqZRDvXEloynV6MK CwefJiETnveIizsL2oGsTb SuHQXxXYONElmL4kQBEeWI ZsdWlkXHBhciANClxwYXJk OV0CGHYkTPeaJJKjFzFpaM HvJ8lyAIGvG65be9TPa5Ve VJ6VLRe1ulHuafvguM1dVQ RuarWlr9GiDKiztKltGNFe MzAgDQpcZnMyMCBSZWNlaX VnWWN9INLolAddw5Cjhnvs RAJoFyRcEJrklFX6qH0lhL MoOor8xNU1TQIpHNBfuzLu EBCpF8f2r0CcjT4iHUVdGZ OzGXxwIEKxs1MnTMZfME8d cUrjEWTeeMixPzenG3yen7 FfTCZijCPzESttXORvsy2p kWdrON1cIPOzOy7nJSSxSG wbJSMtX99sn2BLf7Zns8iv hNblg6NxbTUtOA25YKIueU BnXUY3DM4jxHtzDEKgTOav sCJmKOSFUvvkmdHnMX1VjY == MICROSCOPIC DESCRIPTION m5lktXOsXNOcjKPiMMIsFB (test code = 3371) bgnzRbNGZzrBVnV6Gnryeg EKxsDE2xZI9ezEhanGWxnQ VjFXVsEpFfy0plj550sRTj m1gnQETUhgsghXq6nWedY7 7jx6E9EvjkP25nhHGyEAS1 MMFgXBRzdPBgDVDfLHZ9FL IcpNTiM3xcTEUbBQ0ummry FSclSOzaGYZivWF0SHIssC ZlX0ZlXCGyLFkbZUAaxhs7 VeXkMp5rqIFukLzxKIeiLZ JkXHBsYWluXGZzMjAgUGVy Im1fePLhTgMryUCktS== STATEMENT OF ADEQUACY Satisfactory (test code = 2757) Gross assessment was [employer] [facility] performed at ([facility], = 2777) Department of Pathology, [address] [place] [address], Technical component was [employer] [facility] performed at ([facility], = 2778) Department of Pathology, [address] [place] [address], Professional component [employer] [facility] was performed at ([facility], code = 2779) Department of Pathology, [address] [place] [address], [facility] 12:46:42Medical Cytology Report Case: [id number] Authorizing Provider: Carlos Estrada MD Collected: 0 01/25/2023 03:39 PM Ordering Location: [address] Received: 01/26/2023 08:50 AM Service Pathologist: Daija Lennon MD Specimen: Peritoneal Fluid NEGATIVE FOR MALIGNANCY PERITONEAL FLUID (CYTOSPINS AND CELL BLOCK):-Negative for malignancy-Abundant neutrophils in a background of mesothelial cells Signing Pathologist Direct Phone Line: [phone] signed by Daija Lennon MD on 01/27/2023 at 12:46 [id number], [id number] y.o. 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 CT acquired for worsening of her chronic/persistent abdominal pain and distension demonstrated pneumoperitoneum.PERITONEAL FLUIDA. Peritoneal FluidReceived 400 ml orange marta gelatinous fluid; prepared 4 cytospins and ce ll block(A2)- the cell block was fixed in formalin on 01/26/2023erformed. [facility], Department of Pathology, [address] [place] [address], [facility], Department of Pathology, [address] [place] [address], [facility], Department of Pathology, [address] [place] [address], WYWX-GLUCOSE [id number] 12:13:30 Test Item Value Reference Range Interpretation Comments POC-GLUCOSE METER 94 mg/dL 70-110 : TESTED A T [facility] 6720 (BEAKER) (test code = [facility], 1538) 10509: Turnstile Attendant/Techni waylon ID = [id number] for DANIELLE ETIER, DIONNE POCT-GLUCOSE [id number] 09:41:43 Test Item Value Reference Range Interpretation Comments POC-GLUCOSE METER 86 mg/dL 70-110 : TESTED A T [facility] 6720 (BEAKER) (test code = [facility], 1538) 62260: Turnstile Attendant/Techni waylon ID = [id number] for DANIELLE OSWALDER, DIONNE Protein, body [id number] 08:17:26Protein, Fluid01/27/2023 8:17 AM CDUNIVERSITY OF MICHIGAN HEALTH–WESTBlippex LABORATORYAbsence of reference range indicates that normals have not been defined.Assay performance has not been validated for this type of specimen.[facility] CenterLactate dehydrogenase (LDH), body [id number] 08:17:25LDH, Fluid01/27/2023 8:17 AM CDInfermedicaR Point.io LABORATORYAbsence of reference range indicates that normals have not been defined.Assay performance has not been validated for this type of specimen.[facility] Glucose Peritoneal [id number] 08:17:24Glucose, Peritoneal Fluid01/27/2023 8:17 AM CDTQUEST DIAGNOSTIC INCORPORATEDSeton Medical CenterPOCT-GLUCOSE [id number] 07:52:31 Test Item Value Reference Range Interpretation Comments POC-GLUCOSE METER 66 mg/dL 70-110 L : TESTED A T [facility] 6720 (BEAKER) (test code = [facility], 1538) 24199: Turnstile Attendant/Techni waylon ID = [id number] for DANIELLE OSWALDER, DIONNE (CELLAVISION MANUAL DIFF)2023-01-27 07:15:38 Test Item Value [...] CONCENTRATION Adequate (CELLAVISION)(BEAKER) (test code = 3438) Turnstile Attendant ID - saray Chen comments: Slide comments:CBC W/PLT COUNT & AUTO [id number] 07:15:35 Test Item Value Reference Range Interpretation [...] 332 U/L 125-220 H code = 635) Turnstile Attendant ID - [id number] 07:09:09 Test Item Value Reference Range Interpretation Comments PHOSPHORUS (BEAKER) (test code = 2.6 mg/dL 2.3-4.7 604) Turnstile Attendant ID - [id number] 07:09:08 Test Item Value Reference Range Interpretation Comments MAGNESIUM (BEAKER) (test code = 1.5 mg/dL 1.6-2.6 L 627) Turnstile Attendant ID - MMCOMPREHENSIVE METABOLIC [id number] 07:09:07 Test Item Value Reference Range Interpretation [...] not appl icable for dialysis patien ts Turnstile Attendant ID - MMPT/[id number] 06:39:05 Test Item Value Reference Range Interpretation [...] is 2.5-3.5 for patients with mechanical heart valves.[id number] 06:22:21 Test Item Value Reference Range Interpretation Comments HAPTOGLOBIN (BEAKER) (test code = 232 mg/dL 14-258 366) Turnstile Attendant ID - ADMINCALCIUM, [id number] 05:34:53 Test Item Value Reference Range Interpretation Comments CALCIUM IONIZED (BEAKER) (test 1.16 mmol/L 1.12-1.27 code = 698) PH, BLOOD (BEAKER) (test code = 7.42 1810) POCT-GLUCOSE [id number] 22:32:51 Test Item Value Reference Range Interpretation Comments POC-GLUCOSE METER 78 mg/dL 70-110 : TESTED A T [facility] 6720 (BEAKER) (test code = [facility], 1538) 09164: Turnstile Attendant/Techni waylon ID = [id number] for STAS ALONZO POCT-GLUCOSE [id number] 16:06:32 Test Item Value Reference Range Interpretation Comments POC-GLUCOSE METER 135 mg/dL 70-110 H : TESTED A T [facility] 6720 (BEAKER) (test code = [facility], 1538) 89839: Turnstile Attendant/Techni waylon ID = [id number] for Re david, Yovanny POCT-GLUCOSE [id number] 11:43:11 Test Item Value Reference Range Interpretation Comments POC-GLUCOSE METER 89 mg/dL 70-110 : TESTED A T [facility] 6720 (BEAKER) (test code = [facility], 1538) 48194: Turnstile Attendant/Techni waylon ID = [id number] for Reha segundo, Yovanny INCUBATED 1:1 MIXING [id number] 11:21:11 Test Item Value Reference Range Interpretation Comments IMMEDIATE PT (BEAKER) 15.0 seconds 11.7-14.7 H (test code = 1487) IMMEDIATE PTT (BEAKER) 41.5 seconds 22.5-36.0 H (test code = 1488) IMMEDIATE 1:1 MIX PT 13.6 seconds 11.7-14.7 (BEAKER) (test code = 4097376542) IMMEDIATE 1:1 MIX PTT 36.4 seconds 22.5-36.0 H (BEAKER) (test code = 0948994003) 1:1 MIX, 1 HOUR INC PT 13.9 seconds (BEAKER) (test code = 1501) 1:1 MIX, 1 HOUR INC PTT 37.3 seconds (BEAKER) (test code = 1502) MIXING STUDY PATHOLOGIST Prolonged PT and PTT INTERPRETATION (BEAKER) with correction (test code = 9894997922) suggestive of factor deficiency; cannot completely exclude a factor inhibitor. NUVD-YRERIINKQYY-7401 Fannyevie Britni (BEAKER) (test code = Marifer 2608) [id number] 08:56:25 Test Item Value Reference Range Interpretation Comments HAPTOGLOBIN (BEAKER) (test code = 250 mg/dL 14-258 366) Turnstile Attendant ID - ADMINCOMPREHENSIVE METABOLIC [id number] 08:55:20 Test Item Value Reference Range Interpretation [...] not appl icable for dialysis patien ts [id number] 08:55:06 Test Item Value Reference Range Interpretation Comments MAGNESIUM (BEAKER) 1.7 mg/dL 1.6-2.6 Specimen slightly (test code = 627) hemolyzed [id number] 08:55:00 Test Item Value Reference Range Interpretation Comments PHOSPHORUS (BEAKER) 2.6 mg/dL 2.3-4.7 Specimen slightly (test code = 604) hemolyzed BILIRUBIN, [id number] 08:54:16 Test Item Value Reference Range Interpretation Comments BILIRUBIN DIRECT 0.4 mg/dL 0.1-0.5 Specimen sl ightly (BEAKER) (test code = hemoly zed 706) LACTATE DEHYDROGENASE (LDH)2023-01-26 08:54:09 Test Item Value Reference Range Interpretation Comments LACTATE DEHYDROGENASE 375 U/L 125-220 H Specim en slightly (BEAKER) (test code = hemoly zed 635) POCT-GLUCOSE [id number] 08:08:26 Test Item Value Reference Range Interpretation Comments POC-GLUCOSE METER 72 mg/dL 70-110 : [facility] T [facility] 6720 (BEAKER) (test code = [place], 1538) 897[address]: Turnstile Attendant/Techni waylon ID = [id number] for Yovanny Keating POCT-GLUCOSE [id number] 07:44:34 Test Item Value Reference Range Interpretation Comments POC-GLUCOSE METER 66 mg/dL 70-110 L : [facility] 67[facility] (BEAKER) (test code = [facility], 1538) 33138: Turnstile Attendant/Techni waylon ID = [id number] for Yovanny Keating (CELLAVISION MANUAL DIFF)2023-01-26 06:53:44 [...] CONCENTRATION Adequate (CELLAVISION)(BEAKER) (test code = 3438) Turnstile Attendant ID - Carisa Nikki comments: Slide comments:CBC W/PLT COUNT & AUTO [id number] 06:53:41 Test Item Value Reference Range Interpretation [...] pg/mL 0-100 H (test code = 700) Turnstile Attendant ID - ADMINPT/DQIZ7878-38-88 05:50:43 Test Item Value Reference Range Interpretation [...] 2.5-3.5 for patients with mechanical heart valves.RETICULOCYTE [id number] 05:37:26 Test Item Value Reference Range Interpretation Comments RETICULOCYTE COUNT PCT (BEAKER) (test 3.5 % 0.5-1.7 H code = 575) Turnstile Attendant ID - [id number], [id number] 05:29:50 Test Item Value Reference Range Interpretation Comments CALCIUM IONIZED (BEAKER) (test 1.13 mmol/L 1.12-1.27 code = 698) PH, BLOOD (BEAKER) (test code = 7.41 1810) POCT-GLUCOSE [id number] 23:08:41 Test Item Value Reference Range Interpretation Comments POC-GLUCOSE METER 91 mg/dL 70-110 : TESTED A [facility] ([employer]) (test code = [facility], 1538) 20147: Turnstile Attendant/Techni waylon ID = [id number] for LILIANA RUSSELL PROTHROMBIN TIME/[id number] 22:56:12 Test Item Value Reference Range Interpretation Comments PROTIME (BEAKER) (test code = 16.0 seconds 11.9-14.2 H 759) INR (BEAKER) (test code = 370) 1.31 <=5.90 RECOMMENDED COUMADIN/WARFARIN INR THERAPY RANGESSTANDARD DOSE: 2.0 - 3.0 Includes: PROPHYLAXIS for venous thrombosis, systemic embolization; TREATMENT for venous thrombosis and/or pulmonary embolus.HIGH RISK: Target INR is 2.5-3.5 for patients with mechanical heart valves.[id number] 22:56:00 Test Item Value Reference Range Interpretation Comments PARTIAL THROMBOPLASTIN TIME 36.9 seconds 22.5-36.0 H (BEAKER) (test code = 760) POCT-GLUCOSE [id number] 22:52:04 Test Item Value Reference Range Interpretation Comments POC-GLUCOSE METER 127 mg/dL 70-110 H : TESTED A T [facility] 6720 ([employer]) (test code [facility], = 1538) 45505: Turnstile Attendant/Techni waylon ID = [id number] for Alex Rodriguez Body fluid cell count with [id number] 19:59:19 Test Item Value Reference Range Interpretation Comments Appearance (test code Slightly Hazy Clear A = 9335-1) Color (test code = Yellow Colorless, Straw A 6824-7) RBCs (test code = 4000 See_Comment H [Automate d 83648-4) message] The system which generated this result [...] See_Comment H [Automat ed (test code = 40216-2) messag e] The system which generated this result transmit tomy reference range : <=5 /cu mm. The reference range was not used to interpret this result as normal/abnormal . Adjusted lining 0 See_Comment [Automated cells/Others (test message] The code = 63222-8) system which generated this result transmit tomy reference range : <=1 /cu mm. The reference range was not used to interpret this result as normal/abnormal . % Segs (test code = 27 % 29670-1) % Lymphs (test code = 37 % 15755-5) % Monos (test code = 36 % 93092-1) % Eos (test code = 0 % 86337-4) % Baso (test code = 0 % 08179-7) Container Body Fluid EDTA Tube (test code = 2873) Lab Interpretation Abnormal (test code = 61180-2) [facility] WITH [id number] 19:59:19 Test Item Value Reference Range Interpretation [...] EDTA Tube (test code = 2873) U/S, [id number] 16:58:00Labs to be ordered:->Body Fluid Culture (w/Gram Stain, C\\T\\S)Labs to be ordered:->Anaerobic Culture (w/Gram Stain)Labs to be ordered:->AFB Culture with StainLabs to be ordered:->CytologyLabs to be ordered:->Fungal Culture with StainLabs to be ordered:->Glucose+LDH+ProteinLabs to be ordered:->Cell CountReason for exam:->Diagnostic, prior abdominal surgery, also has hemolytic anemia on [facility]MI[facility] : 1975 Sex: FFINAL REPORT Ultrasound guided paracentesis. Clinical History: Ascites. Sedation: None. Strike Plate Attacher: Sancho Cronin PA-C Used Car Manager: None. Estimated Blood Loss: < 1 cc. Specimen: 450 cc of clear yellow fluid, samples sent to laboratory. Technique: Informed consent was obtained.The risks of pain, bleeding, infection, bowel perforation, [...] area, the skin was prepped and draped inthe usual sterile manner. After local anesthesia was achieved with 2% lidocaine, a 5 Romanian one-stepcatheter was advanced into the peritoneal cavity under ultrasound guidance. After completion of drainage, the catheter was removed. There was no evidence of complication. Impression:Successful ultrasound guided paracentesis. Signed: Dav Domínguez Verified Date/Time: 01/25/2023 16:58:25 Reading Location: [address] Ultrasound Reading Room Electronically signed by: DAV DOMÍNGUEZ MD on 01/25 04:58 PMPOCT-GLUCOSE [id number] 12:12:04 Test Item Value Reference Range Interpretation Comments POC-GLUCOSE METER 129 mg/dL 70-110 H : TESTED A T [facility] 6720 (BEAKER) (test code [facility], = 1538) 97821: Turnstile Attendant/Techni waylon ID = [id number] for Alex Rodriguez CT, [id number] 10:58:00Unlisted Reason for Exam - Click Yes and Enter Reason Below->NoProtocol Please Specify:->Standard ProtocolWill this procedure require oral contrast?->Yes [facility] : 1975 Sex: FFINAL [...] Thomas MDReport Verified Date/Time: 01/25/2023 10:58:05 POCT-GLUCOSE [id number] 08:55:18 Test Item Value Reference Range Interpretation Comments POC-GLUCOSE METER 92 mg/dL 70-110 : [facility] (BEAKER) (test code [facility], [address]: = 1538) Turnstile Attendant/Techni waylon ID = [id number] for Alex Rodriguez [id number] 08:05:09 Test Item Value Reference Range Interpretation Comments PARTIAL THROMBOPLASTIN TIME 159.0 seconds 22.5-36.0 HH (BEAKER) (test code = 760) RETICULOCYTE [id number] 07:51:14 Test Item Value Reference Range Interpretation Comments RETICULOCYTE COUNT PCT (BEAKER) (test 3.9 % 0.5-1.7 H code = 575) Turnstile Attendant ID - MonicaLACTATE DEHYDROGENASE (LDH)2023-01-25 07:06:56 Test Item Value Reference Range Interpretation Comments LACTATE DEHYDROGENASE (BEAKER) (test 332 U/L 125-220 H code = 635) Turnstile Attendant ID - NEELAM [id number] 07:06:55 Test Item Value Reference Range Interpretation Comments PHOSPHORUS (BEAKER) (test code = 2.6 mg/dL 2.3-4.7 604) Turnstile Attendant ID - NEELAM [id number] 07:06:54 Test Item Value Reference Range Interpretation Comments MAGNESIUM (BEAKER) (test code = 1.4 mg/dL 1.6-2.6 L 627) Turnstile Attendant ID - NEELAM WCOMPREHENSIVE METABOLIC [id number] 07:06:53 Test Item Value Reference Range Interpretation [...] not appl icable for dialysis patien ts Turnstile Attendant ID - NEELAM WCBC W/PLT COUNT & AUTO [id number] 06:43:56 Test Item Value Reference Range Interpretation [...] H PERCENT (BEAKER) (test code = 2801) [id number] 06:19:38 Test Item Value Reference Range Interpretation [...] 2.5-3.5 for patients with mechanical heart valves.CALCIUM, [id number] 06:12:51 Test Item Value Reference Range Interpretation Comments CALCIUM IONIZED (BEAKER) (test 1.15 mmol/L 1.12-1.27 code = 698) PH, BLOOD (BEAKER) (test code = 7.38 1810) POCT-GLUCOSE [id number] 21:07:25 Test Item Value Reference Range Interpretation Comments POC-GLUCOSE METER 134 mg/dL 70-110 H : TESTED A T [facility] 6720 (BEAKER) (test code = [facility], 1538) [address]: Turnstile Attendant/Techni waylon ID = [id number] for Cash Morales POCT-GLUCOSE [id number] 16:04:28 Test Item Value Reference Range Interpretation Comments POC-GLUCOSE METER 160 mg/dL 70-110 H : TESTED A T [facility] 6720 (BEAKER) (test code = [facility], 1538) [address]: Turnstile Attendant/Techni waylon ID = [id number] for Yovanny Cox POCT-GLUCOSE [id number] 11:52:59 Test Item Value Reference Range Interpretation Comments POC-GLUCOSE METER 112 mg/dL 70-110 H : TESTED A T [facility] 6720 (BEAKER) (test code = [facility], 1538) [address]: Turnstile Attendant/Techni waylon ID = [id number] for Yovanny Cox [id number] 10:53:14 Test Item Value Reference Range Interpretation Comments PHOSPHORUS (BEAKER) 2.5 mg/dL 2.3-4.7 Specimen slightly (test code = 604) hemolyzed COMPREHENSIVE METABOLIC [id number] 10:53:02 Test Item Value Reference Range Interpretation [...] (BEAKER) (test code = hemoly zed 635) [id number] 10:49:37 Test Item Value Reference Range Interpretation Comments MAGNESIUM (BEAKER) 1.6 mg/dL 1.6-2.6 Specimen slightly (test code = 627) hemolyzed RAD, CHEST, 1 VIEW, NON [id number] 09:40:00Reason for exam:- >leukocytosis, c/f pneumoniaShould this be performed at the bedside?->Yes [facility] : 1975 Sex: FFINAL [...] changes. Additional findings: None. Signed: Krystyna Altamirano MDReport Verified Date/Time: 01/24/2023 09:40:53 Reading Location: [address] Reading Room [id number] 07:47:49 Test Item Value Reference Range Interpretation Comments HAPTOGLOBIN (BEAKER) (test code = 261 mg/dL 14-258 H 366) Turnstile Attendant ID - JSPOCT-GLUCOSE [id number] 07:41:57 Test Item Value Reference Range Interpretation Comments POC-GLUCOSE METER 85 mg/dL 70-110 : TESTED A T [facility] 6720 (BEAKER) (test code = [place], 1538) [address]: Turnstile Attendant/Techni waylon ID = [id number] for Reha mi Yovanny (CELLAVISION MANUAL DIFF)2023-01-24 06:48:13 Test Item Value [...] CONCENTRATION Adequate (CELLAVISION)(BEAKER) (test code = 3438) Turnstile Attendant ID - Santa OverholtUser comments: Slide comments:CBC W/PLT COUNT & AUTO [id number] 06:48:11 Test Item Value Reference Range Interpretation [...] 0-0 (BEAKER) (test code = 413) CALCIUM, [id number] 05:46:32 Test Item Value Reference Range Interpretation Comments CALCIUM IONIZED (BEAKER) (test 1.11 mmol/L 1.12-1.27 L code = 698) PH, BLOOD (BEAKER) (test code = 7.40 1810) [id number] 04:52:02 Test Item Value Reference Range Interpretation [...] 2.5-3.5 for patients with mechanical heart valves.POCT-GLUCOSE [id number] 20:44:57 Test Item Value Reference Range Interpretation Comments POC-GLUCOSE METER 92 mg/dL 70-110 : TESTED A T [facility] 6720 (BEAKER) (test code = [place], 1538) 814[address]: Turnstile Attendant/Techni waylon ID = [id number] for Cash Tobar POCT-GLUCOSE [id number] 15:40:15 Test Item Value Reference Range Interpretation Comments POC-GLUCOSE METER 113 mg/dL 70-110 H : TESTED A T [facility] 6720 (BEAKER) (test code = [facility], 1538) 16552: Turnstile Attendant/Techni waylon ID = [id number] for Yovanny Cox POCT-GLUCOSE [id number] 11:31:18 Test Item Value Reference Range Interpretation Comments POC-GLUCOSE METER 89 mg/dL 70-110 : TESTED A T [facility] 6720 (BEAKER) (test code = [facility], 1538) 04052: Turnstile Attendant/Techni waylon ID = [id number] for Yovanny Keating [id number] 11:31:12 Test Item Value Reference Range Interpretation Comments PHOSPHORUS (BEAKER) (test code = 1.6 mg/dL 2.3-4.7 L 604) Turnstile Attendant ID - [id number] 11:31:11 Test Item Value Reference Range Interpretation Comments MAGNESIUM (BEAKER) (test code = 1.6 mg/dL 1.6-2.6 627) Turnstile Attendant ID - EDCOMPREHENSIVE METABOLIC [id number] 11:31:10 Test Item Value Reference Range Interpretation [...] not appl icable for dialysis patien ts Turnstile Attendant ID - ED(CELLAVISION MANUAL DIFF)2023-01-23 08:32:33 Test Item Value Reference Range Interpretation Comments NEUTROPHILS - REL 94 % (CELLAVISION)(BEAKER) (test code = 2816) LYMPHOCYTES - REL 2 % (CELLAVISION)(BEAKER) (test code = 2817) MONOCYTES - REL 2 % (CELLAVISION)(BEAKER) (test code = 2818) EOSINOPHILS - REL 1 % (CELLAVISION)(BEAKER) (test code = 2819) BANDS - REL (CELLAVISION)(BEAKER) 1 % 0-10 (test code = 8286) NEUTROPHILS - ABS 11.09 K/ul 1.56-6.13 H [...] CONCENTRATION Adequate (CELLAVISION)(BEAKER) (test code = 3438) Turnstile Attendant ID - Santa OverholtUser comments: Slide comments:CBC W/PLT COUNT & AUTO [id number] 08:32:31 Test Item Value Reference Range Interpretation [...] 0-0 (BEAKER) (test code = 413) POCT-GLUCOSE [id number] 07:39:04 Test Item Value Reference Range Interpretation Comments POC-GLUCOSE METER 82 mg/dL 70-110 : TESTED A T [facility] 6720 (BEAKER) (test code = [facility], 153) 88389: Turnstile Attendant/Techni waylon ID = [id number] for Yovanny Keating [id number] 06:44:16 Test Item Value Reference Range Interpretation [...] 2.5-3.5 for patients with mechanical heart valves.POCT-GLUCOSE [id number] 21:09:16 Test Item Value Reference Range Interpretation Comments POC-GLUCOSE METER 110 mg/dL 70-110 : TESTED A T [facility] 6720 (BEAKER) (test code = [facility], 153) 90168: Turnstile Attendant/Techni waylon ID = [id number] for JAVIER SOLIS LAURO POCT-GLUCOSE [id number] 11:58:13 Test Item Value Reference Range Interpretation Comments POC-GLUCOSE METER 84 mg/dL 70-110 : TESTED A T [facility] 6720 (BEAKER) (test code = [facility], 153) 66339: Turnstile Attendant/Techni waylon ID = [id number] for CHARLEY CHICAS POCT-GLUCOSE [id number] 08:49:41 Test Item Value Reference Range Interpretation Comments POC-GLUCOSE METER 72 mg/dL 70-110 : TESTED A T [facility] 6720 (BEAKER) (test code = ROZ [place] [facility], 1538) 51661: Turnstile Attendant/Techni waylon ID = [id number] for CHARLEY CHICAS POCT-GLUCOSE [id number] 07:46:29 Test Item Value Reference Range Interpretation Comments POC-GLUCOSE METER 68 mg/dL 70-110 L : TESTED A T [facility] 6720 (BEAKER) (test code = ROZ [place] [facility], 1538) 03066: Turnstile Attendant/Techni waylon ID = [id number] for CHARLEY CHICAS CBC (HEMOGRAM ONLY)2023-01-22 07:41:48 [...] WBC 0-0 (BEAKER) (test code = 413) [id number] 07:28:29 Test Item Value Reference Range Interpretation Comments PHOSPHORUS (BEAKER) (test code = 2.5 mg/dL 2.3-4.7 604) Turnstile Attendant ID - [id number] 07:28:28 Test Item Value Reference Range Interpretation Comments MAGNESIUM (BEAKER) (test code = 1.6 mg/dL 1.6-2.6 627) Turnstile Attendant ID - MMCOMPREHENSIVE METABOLIC [id number] 07:28:27 Test Item Value Reference Range Interpretation [...] not appl icable for dialysis patien ts Turnstile Attendant ID - [id number] 07:01:23 Test Item Value Reference Range Interpretation Comments PROTIME (BEAKER) (test code = 15.8 seconds 11.9-14.2 H 759) INR (BEAKER) (test code = 370) 1.34 <=5.90 PARTIAL THROMBOPLASTIN TIME 41.1 seconds 22.5-36.0 H (BEAKER) (test code = 760) RECOMMENDED COUMADIN/WARFARIN INR THERAPY RANGESSTANDARD DOSE: 2.0 - 3.0 Includes: PROPHYLAXIS for venous thrombosis, systemic embolization; TREATMENT for venous thrombosis and/or pulmonary embolus.HIGH RISK: Target INR is 2.5-3.5 for patients with mechanical heart valves.Prepare [id number] 23:54:00 Test Item Value Reference Range Interpretation Comments Unit ABO (test code = O Pos 2282261) UNIT NUMBER (test code = L850351664998 934-0) Status (test code = 6498872) TX_TIMEINCHART Blood Bank Product (test code RED BLOOD CELLS = 2263) PRODUCT CODE (test code = Q3715X28 933-2) CROSSMATCH (test code = 2264) [facility] [id number] 21:40:56 Test Item Value Reference Range Interpretation Comments POC-GLUCOSE METER 102 mg/dL 70-110 : TESTED A T [facility] 6720 (BEAKER) (test code = [facility], 1538) 51102: Turnstile Attendant/Techni waylon ID = [id number] for Екатерина Joyner POCT-GLUCOSE [id number] 15:46:51 Test Item Value Reference Range Interpretation Comments POC-GLUCOSE METER 132 mg/dL 70-110 H : TESTED A T [facility] 6720 (BEAKER) (test code = [facility], 153) 34486: Turnstile Attendant/Techni waylon ID = [id number] for Yovanny Cox POCT-GLUCOSE [id number] 11:28:33 Test Item Value Reference Range Interpretation Comments POC-GLUCOSE METER 89 mg/dL 70-110 : TESTED A T [facility] 6720 (BEAKER) (test code = [place], 1538) 579[address]: Turnstile Attendant/Techni waylon ID = [id number] for Yovanny Keating POCT-GLUCOSE [id number] 07:45:44 Test Item Value Reference Range Interpretation Comments POC-GLUCOSE METER 97 mg/dL 70-110 : TESTED A T [facility] 6720 (BEAKER) (test code = [place], 1538) 72424: Turnstile Attendant/Techni waylon ID = [id number] for Yovanny Keating [id number] 07:06:39 Test Item Value Reference Range Interpretation Comments HAPTOGLOBIN (BEAKER) (test code = 241 mg/dL 14-258 366) Turnstile Attendant ID - ADMINLACTATE DEHYDROGENASE (LDH)2023-01-21 06:44:19 Test Item Value Reference Range Interpretation Comments LACTATE DEHYDROGENASE (BEAKER) (test 341 U/L 125-220 H code = 635) Turnstile Attendant ID - [id number] 06:44:18 Test Item Value Reference Range Interpretation Comments MAGNESIUM (BEAKER) (test code = 1.6 mg/dL 1.6-2.6 627) Turnstile Attendant ID - [id number] 06:44:18 Test Item Value Reference Range Interpretation Comments PHOSPHORUS (BEAKER) (test code = 2.5 mg/dL 2.3-4.7 604) Turnstile Attendant ID - ADMINCOMPREHENSIVE METABOLIC [id number] 06:44:17 Test Item Value Reference Range Interpretation [...] (test code = 347) EGFR (BEAKER) 43 Interpretati on of eGFR (test code = [...] not appl icable for dialysis patien ts Turnstile Attendant ID - ADMINPT/[id number] 06:34:16 Test Item Value Reference Range Interpretation [...] 2.5-3.5 for patients with mechanical heart valves.CALCIUM, [id number] 06:28:27 Test Item Value Reference Range Interpretation Comments CALCIUM IONIZED (BEAKER) (test 1.09 mmol/L 1.12-1.27 L code = 698) PH, BLOOD (BEAKER) (test code = 7.43 1810) CBC W/PLT COUNT & AUTO [id number] 06:26:41 Test Item Value Reference Range Interpretation [...] PERCENT (BEAKER) (test code = 2801) RETICULOCYTE [id number] 06:26:22 Test Item Value Reference Range Interpretation Comments RETICULOCYTE COUNT PCT (BEAKER) (test 2.3 % 0.5-1.7 H code = 575) Turnstile Attendant ID - [id number]-GLUCOSE [id number] 23:37:10 Test Item Value Reference Range Interpretation Comments POC-GLUCOSE METER 112 mg/dL 70-110 H : TESTED A T [facility] 6720 (BEAKER) (test code = [place], 1538) 70977: Turnstile Attendant/Techni waylon ID = [id number] for Екатерина Joyner RAD, CHEST, 1 VIEW, NON [id number] 22:30:00Upright - For permanent copy onlyReason for exam:->line placementShould this be performed [facility] the [facility]?->[facility]USA[facility] : 1975 Sex: FFINAL REPORT Chest one view. Clinical history: line placement Comparison: 01/20/2023 Discussion: A frontal chest is provided. Cardiomediastinal contours are unchanged. There is a left IJ line, tip projects over the cavoatrial junction. Right hemidiaphragm is elevated. There is mild vascular congestion. Perihilar hazy opacities are again seen. No pneumothorax, or large effusion. Signed: Ranjit Sandra Verified Date/Time: 01/20/2023 22:30:52 RAD, CHEST, 1 VIEW, NON [id number] 21:48:00Reason for exam:->sobShould this be performed at the bedside?->Yes [facility] : 1975 Sex: FFINAL REPORT Chest one view. Clinical history: sob Comparison: January 16, 2023 Discussion: A frontal chest is provided. Cardiomediastinal contours are unchanged. Right IJ line has been removed. A catheter projects over the left axilla, probably a PICC line. Left greater than rightairspace opacities are not significantly changed. Low lung volume. No pneumothorax or large effusion. No acute bony abnormality. Signed: Ranjit Sandra Verified Date/Time: 01/20/2023 21:48:44 FL, FLUORO, NON-SPECIFIC, UP TO 1 [id number] 18:40:00Reason for exam:->End stage renal disease [facility] : 1975 Sex: FAn imaging unit was utilized for this procedure. No radiologist interpretation was requested. Refer to the EMR for findings. Refer to PACS for any patient radiation dose information.POCT-GLUCOSE [id number] 11:45:57 Test Item Value Reference Range Interpretation Comments POC-GLUCOSE METER 81 mg/dL 70-110 : TESTED A T [facility] 6720 (BEAKER) (test code = [facility], 1538) 11775: Turnstile Attendant/Techni waylon ID = [id number] for Yovanny Keating POCT-GLUCOSE [id number] 07:53:41 Test Item Value Reference Range Interpretation Comments POC-GLUCOSE METER 77 mg/dL 70-110 : TESTED A T [facility] 6720 (BEAKER) (test code = [facility], 1538) 59408: Turnstile Attendant/Techni waylon ID = [id number] for Yovanny Keating COMPREHENSIVE METABOLIC [id number] 04:22:41 Test Item Value Reference Range Interpretation [...] not appl icable for dialysis patien ts Turnstile Attendant ID - ADMINOperator ID - [id number] 04:14:37 Test Item Value Reference Range Interpretation Comments PHOSPHORUS (BEAKER) (test code = 2.0 mg/dL 2.3-4.7 L 604) Turnstile Attendant ID - [id number] 04:14:36 Test Item Value Reference Range Interpretation Comments MAGNESIUM (BEAKER) (test code = 1.6 mg/dL 1.6-2.6 627) Turnstile Attendant ID - ADMINPT/[id number] 03:57:14 Test Item Value Reference Range Interpretation [...] mechanical heart valves.CBC W/PLT COUNT & AUTO [id number] 03:45:35 Test Item Value Reference Range Interpretation [...] (test code = 416) BASOPHILS ABSOLUTE COUNT (AKER) 0.01 K/ L 0.01-0.08 (test code = 417) IMMATURE GRANULOCYTES-RELATIVE 2.80 % 0.00-1.00 H PERCENT (AKER) (test code = 2801) CALCIUM, [id number] 03:17:38 Test Item Value Reference Range Interpretation Comments CALCIUM IONIZED (AKER) (test 1.14 mmol/L 1.12-1.27 code = 698) PH, BLOOD (BANNER) (test code = 7.39 1810) POCT-GLUCOSE [id number] 21:06:26 Test Item Value Reference Range Interpretation Comments POC-GLUCOSE METER 133 mg/dL 70-110 H : TESTED A T [facility] 6720 ([employer]) (test code = [facility], 153) 84531: Turnstile Attendant/Techni waylon ID = [id number] for Cash Morales HCG, QUANTITATIVE, [id number] 19:16:06 Test Item Value Reference Range Interpretation Comments GONADOTROPIN, CHORIONIC (HCG) QUANT < mIU/mL 0-10 (BANNER) (test code = 649) Non- Females: <10 mIU/mL Females: Gestation Age Reference Range(mIU/mL) 0.2-1 Week 5-50 1-2 Weeks 50-500 2-3 Weeks 100-5,000 3-4 Weeks 500-10,000 4-5 Weeks 1,000-50,000 5-6 Weeks 10,000-100,000 6-8 Weeks 15,000- 200,000 2-3 Months 10,000-100,000 Turnstile Attendant ID - ADMINPOCT-GLUCOSE METER 2023-01-19 16:17:17 Test Item Value Reference Range Interpretation Comments POC-GLUCOSE METER 142 mg/dL 70-110 H : TESTED A T [facility] 6720 ([employer]) (test code = [facility] Te[place]on [facility], 153) 18516: Turnstile Attendant/Techni waylon ID = [id number] for Yovanny Cox POCT-GLUCOSE [id number] 11:49:19 Test Item Value Reference Range Interpretation Comments POC-GLUCOSE METER 97 mg/dL 70-110 : TESTED A T [facility] 6720 ([employer]) (test code = [facility], 1538) 90541: Turnstile Attendant/Techni waylon ID = [id number] for Yovanny Keating POCT-GLUCOSE [id number] 11:25:52 Test Item Value Reference Range Interpretation Comments POC-GLUCOSE METER 83 mg/dL 70-110 : TESTED A T [facility] 6720 (BEAKER) (test code = ROZ [place] [facility], 1538) 11394: Turnstile Attendant/Techni waylon ID = [id number] for Yovanny Keating BLOOD [id number] 11:00:41 Test Item Value Reference Range Interpretation Comments CULTURE (BEAKER) (test No growth in 5 days code = 1095) BLOOD [id number] 11:00:40 Test Item Value Reference Range Interpretation Comments CULTURE (BEAKER) (test No growth in 5 days code = 1095) [id number] 07:10:24 Test Item Value Reference Range Interpretation Comments PHOSPHORUS (BEAKER) (test code = 1.9 mg/dL 2.3-4.7 L 604) Turnstile Attendant ID - [id number] 07:10:23 Test Item Value Reference Range Interpretation Comments MAGNESIUM (BEAKER) (test code = 1.7 mg/dL 1.6-2.6 627) Turnstile Attendant ID - mmCOMPREHENSIVE METABOLIC [id number] 07:10:22 Test Item Value Reference Range Interpretation [...] (test code = 347) EGFR (BEAKER) 55 Interpretatio n of eGFR [...] not appl icable for dialysis patien ts Turnstile Attendant ID - mmCBC (HEMOGRAM ONLY)2023-01-19 06:27:20 Test [...] WBC 0-0 (BEAKER) (test code = 413) [id number] 06:07:46 Test Item Value Reference Range Interpretation [...] 2.5-3.5 for patients with mechanical heart valves.POCT-GLUCOSE [id number] 21:34:59 Test Item Value Reference Range Interpretation Comments POC-GLUCOSE METER 94 mg/dL 70-110 : TESTED A T [facility] 6720 (BEAKER) (test code = [facility], 153) 04453: Turnstile Attendant/Techni waylon ID = [id number] for STAS ALONZO BLOOD [id number] 21:00:46 Test Item Value Reference Range Interpretation Comments CULTURE (BEAKER) (test No growth in 5 days code = 1095) BLOOD [id number] 21:00:45 Test Item Value Reference Range Interpretation Comments CULTURE (BEAKER) (test No growth in 5 days code = 1095) POCT-GLUCOSE [id number] 17:53:09 Test Item Value Reference Range Interpretation Comments POC-GLUCOSE METER 91 mg/dL 70-110 : TESTED A T [facility] 6720 (BEAKER) (test code = [facility], 153) 07147: Turnstile Attendant/Techni waylon ID = [id number] for Cortney Zaragoza LACTATE DEHYDROGENASE (LDH)2023-01-18 16:24:21 Test Item Value Reference Range Interpretation Comments LACTATE DEHYDROGENASE (BEAKER) (test 309 U/L 125-220 H code = 635) Turnstile Attendant ID - BSRETICULOCYTE [id number] 16:05:25 Test Item Value Reference Range Interpretation Comments RETICULOCYTE COUNT PCT (BEAKER) (test 1.6 % 0.5-1.7 code = 575) Turnstile Attendant ID - [id number] B SURFACE [id number] 13:51:56 Test Item Value Reference Range Interpretation Comments HEPATITIS B SURFACE ANTIGEN (2) Nonreactive Nonreactive (BEAKER) (test code = 2585) Specimen is considered negative for HBsAg.[id number] 13:22:52 Test Item Value Reference Range Interpretation Comments HAPTOGLOBIN (BEAKER) (test code = 209 mg/dL 14-258 366) Turnstile Attendant ID - mmPOCT-GLUCOSE [id number] 12:36:32 Test Item Value Reference Range Interpretation Comments POC-GLUCOSE METER 96 mg/dL 70-110 : TESTED A T [facility] 6720 (BEAKER) (test code = [facility], 1538) 92402: Turnstile Attendant/Techni waylon ID = [id number] for VAMSI ER, ONELIA POCT-GLUCOSE [id number] 08:31:02 Test Item Value Reference Range Interpretation Comments POC-GLUCOSE METER 89 mg/dL 70-110 : TESTED A T [facility] 6720 (BEAKER) (test code = [facility], 1538) 27219: Turnstile Attendant/Techni waylon ID = [id number] for VAMSI ER, ONELIA COMPREHENSIVE METABOLIC [id number] 05:46:56 Test Item Value Reference Range Interpretation [...] not appl icable for dialysis patien ts Turnstile Attendant ID - [id number] 05:15:16 Test Item Value Reference Range Interpretation Comments PHOSPHORUS (BEAKER) (test code = 2.7 mg/dL 2.3-4.7 604) Turnstile Attendant ID - [id number] 05:15:14 Test Item Value Reference Range Interpretation Comments MAGNESIUM (BEAKER) (test code = 1.7 mg/dL 1.6-2.6 627) Turnstile Attendant ID - MARCOPT/[id number] 05:14:16 Test Item Value Reference Range Interpretation [...] 2.5-3.5 for patients with mechanical heart valves.CALCIUM, [id number] 04:45:52 Test Item Value Reference Range Interpretation Comments CALCIUM IONIZED (BEAKER) (test 1.16 mmol/L 1.12-1.27 code = 698) PH, BLOOD (BEAKER) (test code = 7.40 1810) CBC W/PLT COUNT & AUTO [id number] 04:40:03 Test Item Value Reference Range Interpretation [...] PERCENT (BEAKER) (test code = 2801) POCT-GLUCOSE [id number] 20:56:39 Test Item Value Reference Range Interpretation Comments POC-GLUCOSE METER 107 mg/dL 70-110 : [facility] 67[facility] (BEAKER) (test code = ROZ [place] [facility], 1538) 57765: Turnstile Attendant/Techni waylon ID = [id number] for An Cash harrington TISSUE [id number] 16:35:03Surgical Pathology Report Case: [id number] Authorizing Provider: Bernarda Adorno MD Collected: 12/31/2022 03:43 PM Ordering Location: [facility] Received: 01/03/2023 11:05 AM SERVICES Pathologist: Kael Lofton MD Specimens: A) - Duodenum, Duodenum -- Blue stitch marked distal end B) - Duodenum, Duodenum -- Blue stitch marked distal end C) - Ileum, Ilium -- Blue stitch marked distal end D) - Ileum, Ilium -- Blue stitch marked distal end E) - colon, Transverse colon -- Blue stitch marked distal end A. DUODENUM, SEGMENTAL RESECTION: - [...] CHANGES CONSISTENT WITH PERFORATION (SEE COMMENT) - PATCHY INFLAMMATION AT MARGINS - NEGATIVE FOR MALIGNANCYE. TRANSVERSE COLON, SEGMENTAL RESECTION: - ACUTE COLITIS WITH ULCERATION, NECROSIS AND CHANGES CONSISTENT WITH PERFORATION (SEE COMMENT) - PATCHY INFLAMMATION AT MARGINS - NEGATIVE FOR MALIGNANCY Signing Pathologist Direct Phone Line: [phone] signed by Kael Lofton MD on 01/17/2023 at 4:35 PMFew microthrombi and lamina propria hyalinization are seen in the transverse colon. The remaining specimens are devoid of thrombi, except for a rare microthrombus in the duodenum. The mesentery is extensively sampled, which is unremarkable. Fungal yeast forms and rare pseudohyphaemorphologically consistent with Negin species are present to all the specimens. Findings are nonspecific. Differential includes ischemic colitis, infectious colitis or a combination of both. Clinicaland radiologic correlation is recommended.IDC: Dr. Kristina Garcia reviewed selected slides and concurs with the above assessment.[id number] y.o. female with presenting with AIHA crisis, acute kidneyinjury, chronic abdominal pain, and multiple co- morbidities developed septic shock due to candidemiaand infectious colitis. Developed pneumoperitoneum after multiple small bowel perforations.Rosie Mirza mSpecimen Bryan is received in formalin labeled with the [...] and 1.5 cm from the proximal margin.The stapled ends are removed and the duodenum is opened to reveal siddiqi-pink, rugated mucosa with no grossly identifiable lesions. Carcass Splitter sections are submitted in A1-A5.Section code:A1: Distal resection margin, en faceA2: Proximal resection margin, en faceA3-A4: Bowel, to include transmural defect (inked blue)A5: Uninvolved bowelA6-A7: Mesenteric fatNote: After initial microscopic review, additional auto claim representative sections are submitted in A6-A7 on 01/12/2023.B. DuodenumReceived in formalin labeled the franchesca ent's name, accession number, "duodenum-blue stitch ordoñez distal end" is an oriented segment of duodenum (9.5 cm in length by 2.1 cm [...] mucosal folds. No gross lesions are seen. Carcass Splitter sections are submitted in B1-B5.Section codeB1: Distal resection marginB2: Proximal resection marginB3-B4: Bowel, to include hemorrhagic areaB5: Uninvolved bowelB6-B9: Mesenteric fatNote: After initial microscopic review, additional auto claim representative sections are submitted in B6-B9 on 01/12/2023.C. IleumReceived in formalin labeled patient's name, accession number, "ileum-blue stitch ordoñez distal end" is a segmentof oriented ileum (3.5 cm in length by 2.1 cm in diameter) with designated blue sutured stapled distal margin, and unstitched stapled proximal margin, and up to 1.2 cm attached siddiqi-yellow mesentery. The serosal surface is siddiqi-pink, glistening and exhibits a focal purple-brown dusky, hemorrhagic area (2.0 x 2.0 cm) marked with black sutures and surrounded by scant pale yellow exudate. The hemorrhagic area abuts the distal resection margin and the underlying mesentery.The stapled ends are removed and the ileum is opened to reveal a focal area of dark green, dusky, necrotic and flattened mucosa corresponding to the black sutured serosa. The remaining mucosa is siddiqi- pink and hemorrhagic. No gross lesions are seen.Carcass Splitter sections are submitted in C1-C5.Section code:C1: Distal resection margin, en faceC2: Proximal resection margin, en faceC3-C4: Ileum, to include dusky mucosaC5: Uninvolved ileumC6-C7: Mesenteric fatNote: After initial microscopic review, additional auto claim representative sections are submitted in C6-C7 on 01/12/2023.D. IleumReceived in formalin labeled with the patient's name, accession number, "ileum-blue stitch ordoñez distal end" is as segment of oriented ileum (3.2 cm in length by 2.2 cm in diameter) with a blue stitch designating the stapled distal margin, and a stitched stapled proximal margin, and up to 1.5 cm attached siddiqi-yellow mesentery. The serosal surface is siddiqi, glistening, and exhibits a focal purple- brown, hemorrhagic, dusky area (1.1 x 0.7 cm) [...] 80% loss of mucosal folds. No gross lesions are seen.Carcass Splitter sections are submitted in D1-D4.Section code:D1: Distal resection margin, en faceD2: Proximal resection margin, en faceD3: Ileum, to include hemorrhagic mucosaD4: Uninvolved ileumD5-D6: Mesenteric fatNote: After initial microscopic review, additional auto claim representative sections are submitted in D5-D6 on 01/12/2023.E. colonReceived in formalin labeled with the patient's name, accession number, "transverse colon-blue stitch ordoñez distal end" is an oriented segment of transverse colon(11.7 cm in length by 2.0 cm in diameter) with a blue stitch designating the stapled distal resection margin, and a stitched stapled proximal resection margin, and up to 2.3 cm attached siddiqi-yellow mesentery. There is a focal hemorrhagic, dusky area (6.0 x 1.0 cm) marked with multiple black sutures andsurrounded by pale yellow exudate on the serosal surface. The hemorrhagic area is 4.3 cm from the distal resection margin and 1.0 cm from the proximal resection margin.The stapled ends are removed and the transverse colon is opened to reveal focal area of dark green, necrotic, dusky hemorrhagic mucosa corresponding to the black sutured area on the serosa. The remaining uninvolved mucosa is siddiqi-pink and rugated. No gross lesions are seen.Carcass Splitter sections are submitted in E1- E9.Section code:E1: Distal resection margin, en faceE2-E3: Proximal resection margin, en faceE4-E8: Transverse colon, to include dusky mucosaE9: Uninvolved transverse zxaapN99-M14: Mesenteric fatNote: After initial microscopic review, additional auto claim representative sections are submitted in E10-E14 on 01/12/2023.IRINEO Chaparro StudentPerformedThe interpretation of this case included the use of immunohistochemistry or specialstains.Control Slides Examined: In-house known positive controls were evaluated along with the test t issue. These control slides run alongside of the patients sample show appropriate staining. Internalpositive and negative controls when available are evaluated Immunohistochemistry technical testing was performed at [facility], Pathology Laboratory where it was developed and its performance characteristics were determined. It has not been cleared or approved by the U.S. Food and Drug Administration. The FDA has determined that such clearance or approval is not necessary. The test is used for clinical purposes. It should not be regarded as investigational or for research. [facility] is certified under the Clinical Laboratory Improvement Amendments of 1988 (CLIA-88) as qualified to perform high complexity clinical laboratory testing.POCT-GLUCOSE [id number] 15:48:42 Test Item Value Reference Range Interpretation Comments POC-GLUCOSE METER 96 mg/dL 70-110 : TESTED A T [facility] ([employer]) (test code = [employer] [facility], 153) [address]: Turnstile Attendant/Techni waylon ID = [id number] for Reha mi, Yovanny MISCELLANEOUS LAB [id number] 13:48:21 Test Item Value Reference Range Interpretation Comments SCAN RESULT (test code = see scanned report [id number]) see scanned reportPOCT-GLUCOSE [id number] 11:25:07 Test Item Value Reference Range Interpretation Comments POC-GLUCOSE METER 91 mg/dL 70-110 : TESTED A T [facility] 6720 ([employer]) (test code = ROZ [employer] [facility], 153) [address]: Turnstile Attendant/Techni waylon ID = [id number] for Reha mi, Yovanny POCT-GLUCOSE [id number] 07:40:34 Test Item Value Reference Range Interpretation Comments POC-GLUCOSE METER 83 mg/dL 70-110 : TESTED A T [facility] 6720 (BEAKER) (test code = [place], 1538) [address]: Turnstile Attendant/Techni waylon ID = [id number] for Yovanny Keating [id number] 06:37:21 Test Item Value Reference Range Interpretation Comments PHOSPHORUS (BEAKER) (test code = 2.2 mg/dL 2.3-4.7 L 604) Turnstile Attendant ID - FOWEOEMAJOMZNI1996-07-74 06:37:20 Test Item Value Reference Range Interpretation Comments MAGNESIUM (BEAKER) (test code = 1.7 mg/dL 1.6-2.6 627) Turnstile Attendant ID - MARIOCOMPREHENSIVE METABOLIC [id number] 06:37:19 Test Item Value Reference Range Interpretation [...] not appl icable for dialysis patien ts Turnstile Attendant ID - MARIOPT/[id number] 06:08:22 Test Item Value Reference Range Interpretation [...] 0-0 (BEAKER) (test code = 413) POCT-GLUCOSE [id number] 21:02:20 Test Item Value Reference Range Interpretation Comments POC-GLUCOSE METER 125 mg/dL 70-110 H : TESTED A T [facility] 6720 (BEAKER) (test code = [facility], 1538) [address]: Turnstile Attendant/Techni waylon ID = [id number] for Cash Morales POCT-GLUCOSE [id number] 16:04:04 Test Item Value Reference Range Interpretation Comments POC-GLUCOSE METER 111 mg/dL 70-110 H : TESTED A T [facility] 6720 (BEAKER) (test code = [facility], 1538) [address]: Turnstile Attendant/Techni waylon ID = [id number] for Yovanny Cox POCT-GLUCOSE [id number] 11:39:27 Test Item Value Reference Range Interpretation Comments POC-GLUCOSE METER 105 mg/dL 70-110 : TESTED A T [facility] 6720 (BEAKER) (test code = [facility], 1538) [address]: Turnstile Attendant/Techni waylon ID = [id number] for Re Yovanny hernandez RAD, CHEST, 1 VIEW, NON [id number] 09:07:00Reason for exam:->Post-opShould this be performed at the bedside?->Yes [facility] 1975 Sex: FFINAL [...] Zambrano Verified Date/Time: 01/16/2023 09:07:06 Reading Location: [place] [id number] Body Reading Room POCT- GLUCOSE [id number] 07:37:34 Test Item Value Reference Range Interpretation Comments POC-GLUCOSE METER 100 mg/dL 70-110 : TESTED A T [facility] 6720 (BEAKER) (test code = [place], 1538) [address]: Turnstile Attendant/Techni waylon ID = [id number] for Yovanny Cox [id number] 07:09:03 Test Item Value Reference Range Interpretation Comments PHOSPHORUS (BEAKER) (test code = 1.9 mg/dL 2.3-4.7 L 604) Turnstile Attendant ID - NEIL [id number] 07:09:02 Test Item Value Reference Range Interpretation Comments MAGNESIUM (BEAKER) (test code = 1.7 mg/dL 1.6-2.6 627) Turnstile Attendant ID - NEIL GCOMPREHENSIVE METABOLIC [id number] 07:09:01 Test Item Value Reference Range Interpretation [...] not appl icable for dialysis patien ts Turnstile Attendant ID - NEIL GPT/OGBR2020-36-01 06:28:31 Test Item Value Reference Range Interpretation [...] 0-0 (BEAKER) (test code = 413) POCT-GLUCOSE [id number] 21:16:04 Test Item Value Reference Range Interpretation Comments POC-GLUCOSE METER 94 mg/dL 70-110 : TESTED A T [facility] 6720 (BEAKER) (test code = [facility], 1538) [address]: Turnstile Attendant/Techni waylon ID = [id number] for STAS ALONZO POCT-GLUCOSE [id number] 17:16:43 Test Item Value Reference Range Interpretation Comments POC-GLUCOSE METER 91 mg/dL 70-110 : TESTED A T [facility] 6720 (BEAKER) (test code = [facility] [employer] [facility], 1538) [address]: Turnstile Attendant/Techni waylon ID = [id number] for Nora Beard POCT-GLUCOSE [id number] 12:45:07 Test Item Value Reference Range Interpretation Comments POC-GLUCOSE METER 94 mg/dL 70-110 : TESTED A T [facility] 6720 (BEAKER) (test code = [facility], 1538) [address]: Turnstile Attendant/Techni waylon ID = [id number] for CHARLEY CHICAS POCT-GLUCOSE [id number] 08:14:13 Test Item Value Reference Range Interpretation Comments POC-GLUCOSE METER 77 mg/dL 70-110 : TESTED A T [facility] 6720 (BEAKER) (test code = [facility], 1538) [address]: Turnstile Attendant/Techni waylon ID = [id number] for CHARLEY CHICAS CALCIUM, [id number] 07:39:11 Test Item Value Reference Range Interpretation Comments CALCIUM IONIZED (BEAKER) (test 1.14 mmol/L 1.12-1.27 code = 698) PH, BLOOD (BEAKER) (test code = 7.35 1810) COMPREHENSIVE METABOLIC [id number] 07:13:35 Test Item Value Reference Range Interpretation [...] not appl icable for dialysis patien ts Turnstile Attendant ID - [id number] 07:04:46 Test Item Value Reference Range Interpretation Comments PHOSPHORUS (BEAKER) (test code = 3.3 mg/dL 2.3-4.7 604) Turnstile Attendant ID - [id number] 07:04:45 Test Item Value Reference Range Interpretation Comments MAGNESIUM (BEAKER) (test code = 1.8 mg/dL 1.6-2.6 627) Turnstile Attendant ID - MARIOPT/MKJM1331-83-69 06:54:58 Test Item Value Reference Range Interpretation [...] mechanical heart valves.CBC W/PLT COUNT & AUTO [id number] 06:46:51 Test Item Value Reference Range Interpretation [...] PERCENT (BEAKER) (test code = 2801) POCT-GLUCOSE [id number] 22:03:48 Test Item Value Reference Range Interpretation Comments POC-GLUCOSE METER 128 mg/dL 70-110 H : TESTED A T [facility] 6720 (RHEA) (test code = [place], 1538) [address]: Turnstile Attendant/Techni waylon ID = [id number] for STAS BERG Tissue [id number] 19:56:31 Test Item Value Reference Range Interpretation Comments Case Report (test code Surgical Pathology = 104) Report Case: [id number] Authorizing Provider: Ricki Martinez MD Collected: 01/03/2023 09:45 AM Ordering Location: [facility] PERIOPER[facility] Received: 01/03/2023 04:44 PM SERVICES Pathologist: Sanjuanita Jarvis MD Specimens: A) - Jejunum, Jejunum No.1 B) - Jejunum, Jejunum No.2 C) - Jejunum, Jejunum No.3 D) - Ileum, Ileum No.1 DIAGNOSIS (test code = x5qwjFLpVORwm1nhZFOpbSS 3220) uZzEwMzNcZnRuYmpcdWMxIH tccnRmMVxlcGljMTAyMDVcY Y6csJrwyHh6kEkxXVUcepT1 jWOqQPnlw3ttNDZ3y6dczqq tAOCbPIgkVm5xnYBewOpeOz OpAKYiWEw1lM81XXQesL5ke BPyPXz4NOUwnXKugqDpBzDc MCTdvWXnsUF2CWYyFI3tyiz bYPwbMKmbHVElxuD7TYNznY NaF7NxTJSnRU2aufdbNSA1P MskQPIrPVY1UaEiOQLrf4It wma8ZqEhsZGkBGcezZQpqtv mczIwIEEuIFNNQUxMIEJPV0 VMLCBKRUpVTlVNICMxLCBSR YTUV2JSI62cuRMxQFQhBoRf T67CAJkbGe6SRKftEOFQC5E BIFdJVEggVUxDRVIsIENIUk 6WMXRdHI6ZRGFUEHQHDY4EB WFJGTLKN9ECTnNXWxAlW2CB AnOZLIXAI31gFBVhqti1VAG aLGPUD1PENUtbFJLfgYYbNS 9WF7HSPJHYKRHQH6kAIKJgi GFyXHBhciBCLiBTTUFMTCBC Z9tIKCzuOxRMQJ0FQLBrYvx rIlPKZTHQRA0IGKUokfi6QJ AqDOASOVqSMSQOF2YNEA1IV 98NFBSGCGCHRHPFR2EPEXAL TPSQPysPNVeJYvhKRS0JOAs MGrTBEdSgM9QDAyACLQRFA1 0tHTcZY5LZRNFsxfg9GLSuM MYCZABRTUQFHs2SYIGOU2vz YXJccGFyIEMuIFNNQUxMIEJ NA2LEDJVOIGlSSzSRZVLsXK KENKAMB9NNU83ycOGcCMLjP yMiE96FBMndJc1IUIneVCLH O7GWXMfSNGsfIBsQGTJoSLY BKi7QPVTaTF4BRNEPDTXUTI 9DRPBDDPNNZ2HKCaUTUmAjX 8FKOpUWHCMLS23yFLXuggn3 OLKnRJRYC8TJZNhqNUYcuJK pAG0GX7GHOJCSVKJNP1hTIG NccGFyXHBhciBELiBTTUFMT IAAU8tLOMhqGIjRBB1lWNYM J3CXYTdXYzmaAIZoxUNcMS0 SADWBASDDI7aMQSYVXNUTJ5 BtL4fACQMJFDYTWmtmG4vSL 62BJuVKRzTHZM9MDSVEM45j TJ1KW3CDP3jSQOYQCCJLAvX OVUxBVElPTiBccGFyXHRhYi RnKOgUY4KNGOKgebc3THWmL TELUEALAKAVEd8MDIDCC4dz LFA2y5ruoRTgFRJnpZGbRDL wMFxhbnNpXGRlZmxhbmcxMD FaFCB0osWkCYXtDBzfMEHnI YkoMp0bvBHmbSgxCfExTHMz h2dogiGFcxmsdSw9l9haUNF gRgH5gOGvOYsvZ9ttweRzeH DkVUIpWFu7hL88QNTtvY4xr ZNlPFvscuBaXhU0OTlfUHIl VyR5AYIwaIUbXTZaS8toKSF pHMizLHPvFYsbvGEwWVI4nV hhm2T4qEKijNIpnPhqElDvZ hNzOjRFp0MlBWl2kUpyP9Xb QQDzElH0hVBiVNIdVSxmJCV nSXAvsoZ5mG46RSkioaN3oN Ttb6Rug94pu261xO5qpPZdA VS6YTKfTCKplBYhOQQpCOU5 YZLsyAHxL4meZITkIR5hdvs gSCshFQvdHCQueYF5ZNEraM VjP1TfXQQpKYsdZRKbhhd6G xRvAf9zcEMxxWepONugu9wj p1wqvZFgWjg3UISkPyNuFbo mVIlhx0Auo8glWREpij9dWC F1oBSoqFwnf3D5tMLkQFIsk GYyLXVtNR7ykVOpICOqyC8k cmxjXHBnYnJkcmhlYWRccGd mdjOhNt1spMnxRLF1PRyzB2 wlfO0dNqI4JSayK5ihkM8iG Fi2XQmtLXOdhEQ5xmC9IHNp qDKtZ7QooC9tFGOaOC5samo 4u7qhJBA2SZhsTEOcWgI3ch U7EEOtcZDmSDYnuYubRFlef 250XDL8RiMiJSMed1HnZ5Do tGmvE57vyTebC02rLYRsdDs abA7ceIcmwF2gToQbBkQsSV iwiDkuAI8iCNYrQ6uijKDyA PInJOXgG2ogUoPdyV7ydVay GSgibsFyFXWmZhg2PSQimHY fJFWhQer7ANSoJNBiA54kzd jrZEM0bQ6vk0pnx4WlIWpdR IY2CEGnn13hPQfsahX8MTsy Sh90KQltOJU3YYcgZPE7jG= = CPT Code(s) (test code q9jleLVmUJJhqQMkOLEeYCb = 3357) lalTuKFTetBOcU9QjvstlHV gaCT5xSJ4bzIegqSBncDCjH JCjJcYyr4gfc271lDBrt2zn UNEYcvermAi6mLriN21ng8H 0ScwtP98aqQCeRAK9DLDuKH GqmTDwHANaZJS6IDSnqOYcJ 5eaREKsCI4talsbNQiwRCud RMFieXD4BFMkhKGvE8NqXYC eFYscLFCejxm1KmQbAl0asA VyeTcyMFxwYXJkXHBsYWluX GZzMjAgODgzMDcgWDRccGFy fQ== CLINICAL HISTORY (test u1ndyFCuSCJsaIOeBUHlDMj code = 3356) hwwKvDTOppOKnK7UhvrkhID vlDE7wAX6yoQzprTDjuDGsH JLmNzOwt6kin654rBJpz3cj NBDGotfgfAd8kIouM10by3Y 8QgfgS6qkTPZnXMqlQRDcJL hkxQJgMKq4CSXrqCMwxnZyP aDgYSAolLIpmQB3CKUuEG1u fyluSGrgQRizYXKzgeX3HVM xfNXjY8EkXJAxVV3esbrsUJ A0WRooKIUqFDV3AcQkWVYig 2Jjdbz2WrOolEUdXWyvjRAt zWqfhR3bWeVjNPmiSjGtHI0 nxK1qtX66vwdnWOTwxf6= GROSS DESCRIPTION w8lhhGMxIKUjaANZPHEtMUX (test code = dZD8lcUievKz1nKyeIGZoqg [id number]) V8oTImTNgtp2hdLLC7j1dlo oCGJtmeTSKgEI4pMOjxVNHn PB5tOlMvYBHjUbFzCSCvcRX xwhUaHbVzDUFziPFysFW1OL FqII4pwxclZYjlUOzmYRHfk vQ2YQZdvYUeC5EvWRSgEM1a ofpbAWM9XZFDNsosNo9tiDE ibHtcZjFcZmNoYXJzZXQwXG JgpTbbPQXgFMv6pY0JGkiyR DW6RXSWOybaTaqxvSkou7Ay dCBcXHNnIFxcaWQgNTEwMDA bPMafLnNBHhFrSkF5KIo9PQ enSgQ5CLf8ZVWCDCEcBQO3B RgsVKX2FIe3SZNiWR2fCGlo hBSaCGjaKqyfFBxeX783WBy lOTOlD8EiG8AgXEhpVrKaKI knADTnZBPcZLrxCADxX3NLB SAiJOf7ZTA8MUCvHLb3KNmz T0AVHVZfEFUcThAhLbW5YhE 4YIy8AILGWf6pZjV5XmDzQI E8TVR4AEV5LVzpvAQyCDfbw 0WwOsWrRPUpLQqivtG3LXTi moBuOOhbaSpamI8vFfHrCdD XYbGUACk1nhGpCKGdzdKLYi csWNVuXE1FAFXwSXpmIOHnU rOvfKWoN7fzMEAlN61ko5EE s3HnMC5HUWm6yeDkwonozQ6 wXHJpbjAgDQpcZnMyMCBSZW LwcRQiGIMwgfDqw1ZeHMmdx iBsYWJlbGVkIHdpdGggdGhl CTUfrSbxxrMbqnVaJQ1wINY bP5Fqz6Jbv68ygrFaWyVhBS DbWUJmqcOkyL69sRBoQGMjn NAtZR5tlU6raflafwMeWBvm RZIpHAQtfTTcjeLpZY4zrCk wJqwiGd21EPZoZYwmOETfYC 4njZPvMKRvO28ersXdf2Fyo 74zlBtyMn39EAyss3t9pAR7 vUL2zmNmPhHsA88dl8KdDRC 2EMRtRKLsfSXoEL70TYNbVo ZhIGRkHMOScSAto1Rge6PfK UajJBTqgt3ysG5mZKKfiUUp diRdgCNeCF4xIEDcd7VfMFo nQBMkMUGkcUGjp2QhTJ1xeR 18KT5oLNXbsXJnSS21WHqvo AirmcAneIFlzJ7urMOoHQk0 ZUH1YL3cDHAbEWBszYShaX9 oouRdskWcnTUdTPVayB5hdv U5RXGiHEMmnFNvXXHgetexT GN4fQcfhUS9j9IrGO75L97x DAV6vPNuPPBdQFGjrTbaBP5 0bHkgZmxhdHRlbmVkIGZvbG LdUhSvYv0oLHajK0WshCZxo FUihT9zfkUtzmEeGDYwk6Pn aIbjmsGoGKBuEWqjCS05zHF nGXQtMWYQeSWjr9XrrLAhFV VinUOfujH2dUV2jvViZoHgN 96afZpkL8lgCHYPYNC2zH6k nP3rDZ7rNFFtFEMiWTWereH lcmljIGZhdCByZXZlYWxzIG EgdGFuLXllbGxvdyBmaWJyb 9KefOO8TNOqv0QdgQg4VQCh u1U3oCKhoWcgQNGdzBWty2T gPzWyLBM8jIW3RHeeXHMbyn 8gNYTgOrN5mOZajOVtGwVnG xWdraOmVL39TETkflHjx4In tFqperBrEASfCYI0Rg8qqLZ nBGSoeaMbr4uwr2euQyjvIR XkAWxffFYlXK6AA1ItxEnoo sBpi9DtZLZhazFJTzIfKgNA xSAowCNmy0qdbRIuFRHkdE7 pGONlYSCcG7LfISQwtP1iJW ZiYll5LQynJXRkCQdDQz6WG ZbqJ78dxBsaIq63LAinZ3Yu fRFajGYnKHO1nP3fj5orGMK qJCnhv2JhXLnxwZoxBSWxMo UzFVdAFJopQMXfYR43GFFaB yBmYXQNClxlcGljTmVzdERv FmG8GZQgfFMcKIF4DC6upYr dFUCuTHm6CHhzHJVtU7RqC5 QgXFxzZyBcXGlkIDUxMDAyI BepOUGvZ4XQJDMoFEj4USO6 WUWtTBr7TNkkI3UYHITgETS bCnAqQyP6NaN1CMr9DBPFVq 0iSgH7ItSzPQS0YFI8VHV9Z JmxrPLcKQgvv2OxNxBuXDDr WRkthrT6ILZfwfVfv8XxDDC zEDCsI8pgCbLkSUCUGqwqnt IfITVhMMpzjwGpuK5giVHoN P6XCGNnlcTtOTgobXnfuF0k rODbZ2hdDvVnAksthVrcPfO zdERvYzEgDQpcbHRycGFyXG xpbjBccmluMFxzYjMwXGVwa RCKg2JyYLEZFatbayVjONYs D7AcwhYbOBdiGSXtbx4ljGw iTGrvMuRqJNDuj6q6nKF8fI UpgTQ3bBKapXwzYB2thWFtP EJnF3Eun1hbfmJwvY7iAQJd MU4oFBBbMZn9bvEcQQWrUfW gpnLthaR9qq0ajSBddYRvFZ XdBX0eGRDsMGlfLKhkzbk2y EDaaYFmZrIgZ20neS3sBBec tSI8IUThv9LilBTjdQIoRzZ xiKEfpMCvp1pxgTT4dKWoQZ VwIHRvIDIuNSBjbSBvZiBhd TXtF5dzLNNzHQWvnoAcvvcp DPNpfT6eJUPrZYFvVDTcm4E tqVPufILoPANgmuoqYGh7rN YbLR0jXjkyl93dt7WfGOVfD SIvnDOfiCZ8jlJzPLXjYLJs JPDisT49yrYfq4JgIOZbVGU ogkZncJKitU77SDvzSWWlYQ LkPrCvmc4vbWM0aHCjxKJne HVkYXRlLiAgVGhlIHNwZWNp jMQqDXltQV3tWJ8dYQK2npV dEKQkYUwyBKQ4NM4kxXzasm hcVRD7bYxscQR5k2EkZH09X 96yKFQ0xPD0XIFbv4KjCVks PZ8scd1kwOX7tlGdbJD0aTT nNEDfXo8cZQTsGKGIgmFdnO QkdeD5IWIcIFUkv49uYU6iD YStsuNlhmW8tX6brnPfexDd TCNulwKhyQX5JEJsTSXVcSQ xn1UwcLCvRAUpbYOfgqZ9zN B2dlWjThTcO43duEcsY9vzX OPYIFB9dX0mjP4mSF7tYREg EUJhQITvjeBbxcbbyoB6QOI ywrEaYAWyhv98UBiqx1lzHf tkvi7hHST8vOwmXv6tQLnwe GF1DXNexEbiujb7EKDrH1D2 UIP2hcKoX6LxdNmqiWFnurO wCWNvyWVxb8JpoFauf13ehZ 6tWWVciNNzz7RgoNR5hPNcV XAiO1Qrx36lGCUsUGZpbHMc gXR3MQYtFTIvEg6xvF01xwu rtBKbLV5VJKZlNDqwzFudQM PzZCLJJngaMDBfJMoZIHQ4z M4mCJIpNQBpjMTxJO4DJoN0 TCBgFXjaSQFfv8DtUV7cguh mvnTtAQ6sGkYcRGsmNJLlkg tlZCBibHVlXHBhciANCkIyL ODzXlSYmKCgeUVuc8edcMNg QV30ogImXDVdS0Dzj56lBIU hciANClxzYTMwXGVwaWNYc2 QuDGOJHpK0IaBRBRNrdzZdh nkNClxlcGljTmVzdERvYzB7 ZERnrPXmJDB7KK4twUoiZWH zTDr3DVtmRNCxK9NgY1SvER xzZyBcXGlkIDUxMDAyIFxcZ NEuN8WWTBTgZOt3ECX0URTe JDm1HIjlU6VDGYUdKWMwZeS oStT3OhW0UFn6YELEWq7aPq Q7CvCjGZB8DRR4OMK1MPuwy EYxRGwwg8PhBzCvMHUbLYwp ncB4KQWlkpCxo8LzDAWtWFA zU4ulLpDrHFHFZkjpfuXdFU ZvPAxolpOqsD5hpENsOM5CU YHnmuMhQYxsxRwiqR0fqGRd U6xuGyOrTwyqaGqeLvFqtZJ vYzEgDQpcbHRycGFyXGxpbj BccmluMFxzYjMwXGVwaWNYc 9HeUBZMIqxeghVtCYLqN9Sl wcLbGOygQKCjay2evKxeYKk wVrMxNNUxi0v4uAA8dXHhfJ I7uAHaaJvhDV0kbRRkGDXvE 9Fic3nwzpHtxK2lRUAxXF8b CKBiCDm3ibCoSLKaItPwbtL bdrB5sr0zpMIrgLQkXXLjDM 5oWHIqITssGFahivu9pVRvl ADkDgPoL55haR1uKBlbrNS6 VCYvs3HuvDGzyRSgYrRcaZK ckAKjk5dybOT9nYAmXEDgZH RvIDMuNSBjbSBvZiBhdHRhY 2hlZCBtZXNlbnRlcmljIGZh lW1eKOGiMSMnJXVng8YutXM cvGIpOCZcakfaAIy7zPDcJQ 1pYyBhbmQgZGlzcGxheXMgY QJfl0TvrcC5DBUoeR58hsGe h2KkOCTkNNKdczYcmIJxxG6 3IGZpYnJvcHVydWxlbnQgZX z6EWS7UL2kUTFxIMEmdMQeu C6bedXhjfNfgLHnEAYybM1k nxQ9SMKcXUDdfLFsIDQtnmw qKTL4kFjmfOV6i0MxHV82J6 4sAHO1xDVlWH1adi2ubAS9x kUpjXJ2mCVnBAJhNx7aRNUh BGTNcxIxxBAqfpJ8XZIoJSL ll74yXV8cNWHlydPuegK0jJ 1iipLaydUvLOHvtbLbkHJ6T OWfTYRCxYShf7OwmMFcQXTe vKVxrqJ8oSE3slVwFwNcZ37 lvCxyJ8nwZKPZDFQ5iL7ikV 1eII7gPGYzLRUfZICinuIvd mljIGZhdCByZXZlYWxzIGEg bBShVSlnlWllszSqxFVcz4M dlDW0ZHHzl1DavUj7WBDdr2 R2xDRklPksHBJugUWyq8TwN sGwSMH9yZU9SJkhYSVqcf3k GKDgIyK3yEEdtPAdOqFdGlI fmfQyXX41QXHakyDda9PykA bjusXlHMZlLUL7Wb6qhFKeA SKksuWft6uhk3kiXaqnRFWy LYptg9UdHFBkeVVJn6LhJK3 ABLDnsqXSOkPtX9Bwd32pQ4 3fVFwsKTIqIDxIQRcwR78yl JruXq33HLflvRUiH8jvdrKu piOnXGCuVRDwCEdcy9ReCPH ogNSizRPlBD1PPjXjEuK2WH LseeDbLMuhu94zfKfzJp58T Iyny1PuvCqnxnTygOChYR2I ZPDfIaFaYFSjM7bsNXJoDA0 XIbJ5ZD9bc5ZipRRwaI5LKY LemPKRVLM8IH6rYIdqDVWgN 1YgF9FrzsC4DGGfbuLAXaap EvrjbTgxl0YaaHUjCSRkEVv caWQgNTEwMDIgXFxkYiBPVl JkPyO0EFw3BOurLqQ8FUs3L WGXHdGgKlFbTwK4XsJgPZNq OYp3WEn4VAjBOyN8EMi9GMG 0ArTbUNK9SRfmBIq0TVKcQM gwvnYgDGlcMuoqZMeoS91vq GFyZFxzYjEwNVxlcGljWHNi EZZ5YJ0ZJNBjIoUvQR0pWHg iiG8tgDAlRJ4FMKAscnCwKU mgdMwazY9nzWMiH1rzHfArF lxlcGljTmVzdERvYzEgDQpc bHRycGFyXGxpbjBccmluMFx hZtQvKOMwkOZYr5KuBRQZAc ejcxToEEJrL9MnxgNyGUgpG PZqog8aiZjxMVyjJgPjRDNq r8v1mQB3iJBwoNU8uNRfcTm aJN0icDBjCLMwA6Ktv5ksky XouR3hMYSrDB8rKRYxwRK2y NWdVJEnvNGlHX1raY2ptvak bnRlZCwgMzcuMCBjbSBpbiB xDI6mvTorWjkpXn4qPVEzUN rhPMLlBK6nrRGkIDKoM15wt gCwd1Zuz53umZfdOm24NAnl u3g8mBP7tQN3jrOlYlPeE79 hg7SzFBL0CUBzAJOeeHOiBJ 50ZXJpYyBmYXQsIGFuZCBhI JvnOsGsvXPiehQsHS5ooSxd BovjEt8hFVAjZJlkREMjVD8 syOHvZEPgM68jCCNpMQthZW 35VO3lRVKeQJgxIPVbz5PlU ZrkbCtooJNonF0pGC30XIJl IB7cTOG5wABlgWXmYT1gc7R prCNemOKtEnF0GEIpMUTtwE UcMM8yp5YlgZ2sOUBay0g9s AMjvFh5eHNrHPHnpAO9bxTi PMObYMNiZBAkz22kFIUsv3R hbMSowA1dsPJhUC4JDIYtPY xlcGljWHNiMCANClxwYXIgD FzLaUFdu0Hjp6WdAYnzNDN3 j9a6KOAmbu9cpM6xZUDefKI gzqNvmVDwJD5gFOBqg2ZlTD ujTUBdi5HfxlCzETEhn3Dte ATbXjKzOVrsodXioWH5UJha a5iaWkbgmz0niCI1mVCiwPM leHVkYXRlLiAgVGhlIHNwZW GcnLJhQJlvPG3iAY4tAOM0p fZiSRYiUPamSFM2QU8lcPtk hnXmx1AupNb1YKGlcDFcWI8 rzJ01bcBgqVBoq9NuiRpqlH OeaJAwvIM7wgIeb5SwQBsnj F3hOppouYLncbQzIYDzsUQz MkXyEz2nRUlsT3QpsVWhlNS quA5ybePyupYlZEEyr1XauZ zmkoTmISLbTUMtlRWdB4aaw GVkLiAgVGhlIHdhbGwgbWVh h8AeEWFqeREhrH6wVX9lTXA iXBWfzUPzFdXgQ6AupDjhqo eeFfXyTnP6eHWvlIUwEH28X BSqBcPyTTZhfgJ9WMZhooFg OQFwjg05TNvyj9qpZclrrp1 tBET5aVocQs7aFUxydCT1HL KixFoexxa9AQZjH0C3DMU1m nVkX2WcxXjyfXWjqiAmXUIr yLYuk7HdgYurn52wtR2dNII qeGApi2MkeJV9oNQhNTTjT7 Nen22tAWGzBSMstPEjbXU1L AWiMFNhGa3pmB09swtthQGu YB1PZKOfvsRVNpiyzrYbs7L lXHBhciANClNtYWxsIGJvd2 OxULqtuyvwtwGwWZofRU26M X3aywjjcdMxwR5pGXK4OEEx XDBiLRU4k51jl8jsRhEZpHL lXHBhciANClNtYWxsIGJvd2 IrQDIpn6O4POZzc5ZcmEOqr SSoUMNskS5uQ2qaf8RkdKN3 tvGtgxCzcL3fd4LxzbabOwu hB1htbFJrSI7ERAErubUKUm NpO5Uio53lO34sBIroCNUlR ZlHTYssFO4sH1SoPWGjH73s lqPxo43xjIazQi52LOdkbCI eV6owxpAhvyJkQLHkKCQkze ZBMnHsOqLGgU7fsASeOXZrB 59hiuQae82jtWopPj04XUgs mTOaZ4fosaQdhtKoKJXhRSA wylRDXbUqUBF8PjXUmqSgvT 2yd7VtYoOaaCGgFSDzocZBF kF8PNM0LvAOc03qTPTgv9Zk aGUekXfkMADyDGeSYK5LVID 2UYFpc6N4LPMfw8FfiQFpmF xwYXIgDQpEMTEtRDEyOiBNZ XNlbnRlcmljIGZhdFxwYXIg JDlfmZEqTX2XDTedFQXrQPI ndWVsbGVzLCBQQSwgSFQgKE WNW7RwWAMnsaQXSwhfUANkI Kujb1MzJExqwFqhPPSoQiHa RPogQQBdX95jw4SOw4Flv8d nhRpll7LwsRPnXJ67QWRhlO NhXOJ0BQ9qpFmsPLQyZFbna JLaJVVGObythfZxUA7DjZ== MICROSCOPIC o3sebRWoKYAtyEEvZQGsYOo DESCRIPTION (test code bkbFjCRAuxWFoD8HuqfrtMT = 3371) ayNI9fRH1tjHromKMnvRShA RCjOqOxr4nza596xZAmq4wf QOMGwyuahSd5aLonM98ck2Q 9CuivY03qpZOlZSP7WHEuEH LwwFHfVSGoFUV6CHLtpDExC 7ovXIMkGN4fhipdTTgvZNbu RJKvvSK1ZVOeeSBvR8RiMRX gCTpoMSCmwoe0IoAqBx3dbD VyeTcyMFxwYXJkXHBsYWluX ZVhJcFhUP8JCbVBXYHcs2Lm ZWQuIFxwYXJ9 Gross assessment was [employer] [facility] performed at ([facility], code = 2777) Department of Pathology, [address] [place] [id number], Technical component [employer] [facility] was performed at ([facility], code = 2778) Department of Pathology, [address] [place] [address], Professional component [employer] [facility] was performed at ([facility], code = 2779) Department of Pathology, [address] [place] [address], [id number] 19:56:31Surgical Pathology Report Case: [id number] Authorizing Provider: Ricki Martinez MD Collected: 01/03/2023 09:45 AM Ordering Location: [facility] Received: 01/03/2023 04:44 PM SERVICES Pathologist: [...] NECROSIS AND GRANULATION TISSUE -ACUTE SEROSITIS Signing Pathologist Direct Phone Line: [phone] signed by Sanjuanita Jarvis MD on 01/14/2023 at 7:56 [id number]. JejunumReceived in formalin labeled with the patient's name, accession number and "jejunum #1" is an unoriented, 14.0 cm in length by 2.4 cm in diameter segment of small bowel with up to 2.5 cm of attached mesenteric fat. The serosa is siddiqi-pink, hyperemic and displays a a sparse amount of adherent yellow fibrinous exudate. The specimen is opened to reveal a siddiqi-pink erythematous mu cosa with predominantly flattened folds. No discrete lesions or perforations are identified. The wall measures up to 0.2 cm thick. Sectioning of the mesenteric fat reveals a siddiqi-yellow fibrofatty, focally vascularized cut surface that is devoid of thrombi. Carcass Splitter sections are submitted as follows:Section codeA1: Small bowel margins en face, 1 inked blueA2-A4: Small bowel central sectionsA5: Mesenteric fatB. JejunumReceived in formalin labeled with the patient's name, accession number and "jejunum #2" is an unoriented, 25.0 cm in length by 2.1 cm in diameter segment of small bowel with up to2.5 cm of attached mesenteric fat. The serosa [...] cut surface that is devoid of thrombi. [employer] Splitter sections are submitted as follows:Section codeB1: Small bowel margins en face, 1 inked blueB2-B3: Small bowel central sectionsB4: MesenteryC. JejunumReceived in formalin labeled with the [...] Sectioning of the mesenteric fat reveals a siddiqi- yellow fibrofatty, focally vascularized cut surface that is devoid of thrombi. [employer] Splitter sections are submitted as follows:Section codeC1: Small bowel margins en face, 1 inked blueC2-C4: Central small bowel sectionsC5: MesenteryD. IleumReceived in formalin labeled with the patient's name, accession number and "ileum #1" is an unoriented, 37.0 cm in length by 2.3 cm in diameter segment of small bowel with up to 2.5 cm of attached mesenteric fat, and a 8.3 cm in length by 2.3 cm in diameter second segment of small bowel with up to 1.5 cm of attached mesenteric fat that is anastomosed with multiple sutures to thelonger segment.The serosa is dusky siddiqi-pink, hyperemic and displays a sparse amount of adherent yellow fibropurulent exudate. The specimen is opened to reveal a siddiqi- pink focally erythematous mucosa that displays normal to flattened folds. No discrete lesions or perforations are appreciated. The wall measures up to 0.2 cm thick. Sectioning of the mesenteric fat reveals a siddiqi-yellow fibrofatty, focally vascularized cut surface that is devoid of thrombi. Carcass Splitter sections are submitted as follows:Ink codeSmall bowel longer segment margin closest to anastomosis: BlueSmall bowel shorter segment margin closest to anastomosis: BlackSection codeD1: Longer segment small bowel margins en faceD2: Wallace segment small bowel margins en faceD3-D5: Anastomotic siteD6-D8: Longer segmentD9-D10: Wallace [id number]: Mesenteric fatPilar IRINEO Gandhi HT (ASCP)A-D. Performed. [facility], Department of Pathology, [address] [place] [id number], [facility], Department of Pathology, [address] [place] [address], [facility], [facility] of [facility], [address] [place] [address], KJUA-GLUCOSE [id number] 17:03:24 Test Item Value Reference Range Interpretation Comments POC-GLUCOSE METER 141 mg/dL 70-110 H : TESTED A T [facility] 6720 (BEAKER) (test code [facility], = 1538) 94653: Turnstile Attendant/Techni waylon ID = [id number] for [place], [place] POCT-GLUCOSE [id number] 12:23:16 Test Item Value Reference Range Interpretation Comments POC-GLUCOSE METER 119 mg/dL 70-110 H : TESTED A T [facility] 6720 (BEAKER) (test code [facility], = 1538) 38796: Turnstile Attendant/Techni waylon ID = [id number] for [place], Lilliokalani POCT-GLUCOSE [id number] 08:45:29 Test Item Value Reference Range Interpretation Comments POC-GLUCOSE METER 83 mg/dL 70-110 : TESTED A T [facility] 6720 (BEAKER) (test code [facility], [address]: = 1538) Turnstile Attendant/Techni waylon ID = [id number] for Wils on, Lilliokalani [id number] 06:26:00 Test Item Value Reference Range Interpretation Comments MAGNESIUM (BEAKER) (test code = 1.7 mg/dL 1.6-2.6 627) Turnstile Attendant ID - [id number] 06:26:00 Test Item Value Reference Range Interpretation Comments PHOSPHORUS (BEAKER) (test code = 2.9 mg/dL 2.3-4.7 604) Turnstile Attendant ID - marioCOMPREHENSIVE METABOLIC [id number] 06:25:59 Test Item Value Reference Range Interpretation [...] not appl icable for dialysis patien ts Turnstile Attendant ID - marioPT/[id number] 05:48:51 Test Item Value Reference Range Interpretation [...] 0-0 (BEAKER) (test code = 413) POCT-GLUCOSE [id number] 23:47:23 Test Item Value Reference Range Interpretation Comments POC-GLUCOSE METER 78 mg/dL 70-110 : TESTED A T [facility] 6720 (BEAKER) (test code = [facility], 1538) [address]: Turnstile Attendant/Techni waylon ID = [id number] for CARRIE ANBRYANA B-TYPE NATRIURETIC FACTOR (BNP)2023-01-13 20:31:10 Test Item Value Reference Range Interpretation Comments B-TYPE NATRIURETIC PEPTIDE (BEAKER) 794 pg/mL 0-100 H (test code = 700) Turnstile Attendant ID - ADMINB-TYPE NATRIURETIC FACTOR (BNP)2023-01-13 18:42:04 Test Item Value Reference Range Interpretation Comments B-TYPE NATRIURETIC PEPTIDE (BEAKER) 909 pg/mL 0-100 H (test code = 700) Turnstile Attendant ID - ADMINPOCT-GLUCOSE [id number] 17:56:58 Test Item Value Reference Range Interpretation Comments POC-GLUCOSE METER 119 mg/dL 70-110 H : TESTED A T [facility] 6720 (BEAKER) (test code = [facility], 1538) [address]: Turnstile Attendant/Techni waylon ID = [id number] for Amanda Wilson POCT-GLUCOSE [id number] 12:09:30 Test Item Value Reference Range Interpretation Comments POC-GLUCOSE METER 99 mg/dL 70-110 : TESTED A T [facility] 6720 (BEAKER) (test code = [facility], 1538) [address]: Turnstile Attendant/Techni waylon ID = [id number] for Jaydon García FUNGUS CULTURE + [id number] 11:22:23 Test Item Value Reference Range Interpretation [...] d message] code = 143) The system [employer] generated this result transmitted ref erence range: Suscepti ble 0-0 , Dose Depe ndent Susceptible <0 or >0 , Resi. The ref erence range was not u sed to interpret this result as normal/abnor mal. Itraconazole (test See_Comment [Automat ed message] code = 146) The system [employer] generated this result transmitted ref erence range: Suscepti ble 0-0.125 , Dose Dependent Susce ptible <0 or >.125. Th e reference range was not used to int erpret this result as normal/abnormal . Micafungin (test See_Comment S [Automated message] code = 148) The system [employer] generated this result transmitted ref erence range: Suscepti ble 0-0.06 , Non-susceptible <0 or >.06 , Resistan t . The reference r stefanie was not used to interpret this result as normal/abnor mal. Posaconazole (test See_Comment [Automat ed message] code = 152) The system [employer] generated this result transmitted ref erence range: Suscepti ble >0-0 , No Interpretations Established <=0 or >0 . The reference range was not used to interpret this result as normal/abnor mal. Voriconazole (test See_Comment [Automat ed message] code = 153) The system [employer] generated this result transmitted ref erence range: [...] d message] code = 143) The system [employer] generated this result transmitted ref erence range: Suscepti ble 0-2 , Dose Depe ndent Susceptible <0 or >2 , Resi. The ref erence range was not u sed to interpret this result as normal/abnor mal. Itraconazole (test See_Comment [Automat ed message] code = 1462) The system [employer] generated this result transmitted ref erence range: Suscepti ble 0-0.125 , Dose Dependent Susce ptible <0 or >.125. Th e reference range was not used to int erpret this result as normal/abnormal . Micafungin (test See_Comment S [Automated message] code = 148) The system [employer] generated this result transmitted ref erence range: Suscepti ble 0-0.25 , Non-susceptible <0 or >.25 , Resistan t . The reference r stefanie was not used to interpret this result as normal/abnor mal. Posaconazole (test See_Comment [Automat ed message] code = 1522) The system [employer] generated this result transmitted ref erence range: Suscepti ble >0-0 , No Interpretations Established <=0 or >0 . The reference range was not used to interpret this result as normal/abnor mal. Voriconazole (test See_Comment [Automat ed message] code = 1532) The system [employer] generated this result transmitted ref erence range: Suscepti ble 0-0.12 , Dose Dependent Susce ptible <0 or >.12 ,. T he reference range was not used to int erpret this result as normal/abnormal . FUNGUS SMEAR No fungal (BEAKER) (test elements seen code = 1406) RAD, CHEST, 1 VIEW, NON [id number] 08:58:00Reason for exam:->cancelled order but imaging was already performedShould this be performed at the bedside?->[facility] : 1975 Sex: FFINAL [...] 79 mg/dL 70-110 : TESTED A T [facility] 6720 (BEAKER) (test code = [place], 1538) [address]: Turnstile Attendant/Techni waylon ID = [id number] for Jaydon García CBC W/PLT COUNT & AUTO [id number] 05:13:42 Test Item Value Reference Range Interpretation [...] (BEAKER) (test code = 2801) COMPREHENSIVE METABOLIC [id number] 05:13:36 Test Item Value Reference Range Interpretation [...] not appl icable for dialysis patien ts Turnstile Attendant ID - [id number] 05:12:45 Test Item Value Reference Range Interpretation Comments PHOSPHORUS (BEAKER) (test code = 4.3 mg/dL 2.3-4.7 604) Turnstile Attendant ID - [id number] 05:12:44 Test Item Value Reference Range Interpretation Comments MAGNESIUM (BEAKER) (test code = 1.8 mg/dL 1.6-2.6 627) Turnstile Attendant ID - ADMINPT/[id number] 05:00:07 Test Item Value Reference Range Interpretation [...] 2.5-3.5 for patients with mechanical heart valves.CALCIUM, [id number] 04:30:59 Test Item Value Reference Range Interpretation Comments CALCIUM IONIZED (BEAKER) (test 1.12 mmol/L 1.12-1.27 code = 698) PH, BLOOD (BEAKER) (test code = 7.42 1810) POCT-GLUCOSE [id number] 21:46:04 Test Item Value Reference Range Interpretation Comments POC-GLUCOSE METER 112 mg/dL 70-110 H : [facility] 6720 (BEAKER) (test code = [place] [place] [facility], 1538) [address]: Turnstile Attendant/Techni waylon ID = [id number] for LAURO ALCOCER POCT-GLUCOSE [id number] 16:27:00 Test Item Value Reference Range Interpretation Comments POC-GLUCOSE METER 99 mg/dL 70-110 : TESTED A T [facility] 6720 (SANDRAAKER) (test code = [place], 1538) [address]: Turnstile Attendant/Techni waylon ID = [id number] for Yovanny Keating POCT-GLUCOSE [id number] 12:27:46 Test Item Value Reference Range Interpretation Comments POC-GLUCOSE METER 91 mg/dL 70-110 : TESTED A T [facility] 6720 (SANDRAAKER) (test code = [facility] [place] [facility], 1538) [address]: Turnstile Attendant/Techni waylon ID = [id number] for Yovanny Keating RETICULOCYTE [id number] 09:36:55 Test Item Value Reference Range Interpretation Comments RETICULOCYTE COUNT PCT (RHEA) (test 5.1 % 0.5-1.7 H code = 575) Turnstile Attendant ID - [id number] ID - [id number], CHEST, 1 VIEW, NON [id number] 08:13:00Reason for exam:->Post-opShould this be performed at the bedside?->Yes[facility] : 1975 Sex: FFINAL [...] MDReport Verified Date/Time: 01/12/2023 08:13:02 POCT- GLUCOSE [id number] 07:43:43 Test Item Value Reference Range Interpretation Comments POC-GLUCOSE METER 75 mg/dL 70-110 : TESTED A T [facility] 6720 (BEAKER) (test code = [place], 1538) [address]: Turnstile Attendant/Techni waylon ID = [id number] for Yovanny Keating COMPREHENSIVE METABOLIC [id number] 05:28:52 Test Item Value Reference Range Interpretation [...] not appl icable for dialysis patien ts Turnstile Attendant ID - NEIL [id number] 05:17:39 Test Item Value Reference Range Interpretation Comments PHOSPHORUS (BEAKER) (test code = 3.9 mg/dL 2.3-4.7 604) Turnstile Attendant ID - NEIL [id number] 05:17:38 Test Item Value Reference Range Interpretation Comments MAGNESIUM (BEAKER) (test code = 1.9 mg/dL 1.6-2.6 627) Turnstile Attendant ID - NEIL GPT/[id number] 05:03:27 Test Item Value Reference Range Interpretation [...] CORPUSCULAR HEMOGLOBIN CONC 30.3 GM/DL 32.2-35.5 L (AKER) (test code = 752) RED CELL DISTRIBUTION WIDTH 19.3 % 11.7-14.4 H (AKER) (test code = 412) PLATELET COUNT (BANNER) (test 104 K/CU MM 150-450 L code = 756) MEAN PLATELET VOLUME (AKER) 12.3 fL 9.4-12.3 (test code = 754) NUCLEATED RED BLOOD CELLS 0 /100 WBC 0-0 (AKER) (test code = 413) POCT-GLUCOSE [id number] 21:16:07 Test Item Value Reference Range Interpretation Comments POC-GLUCOSE METER 108 mg/dL 70-110 : TESTED A T [facility] 67 (BANNER) (test code = [facility] Yadi [facility], 1538) [address]: Turnstile Attendant/Techni waylon ID = [id number] for LAURO ALCOCER POCT-GLUCOSE [id number] 12:30:26 Test Item Value Reference Range Interpretation Comments POC-GLUCOSE METER 106 mg/dL 70-110 : Notified RN/MD: (BANNER) (test code = TESTED AT [place] [address] 1538) [facility], [address]: Turnstile Attendant/Techni waylon ID = [id number] for Fu rr, Wendy RAD, CHEST, 1 VIEW, NON [id number] 11:14:00Reason for exam:->Post-opShould this be performed at the bedside?->Yes [facility] SHASTA : 1975 Sex: FFINAL REPORT CLINICAL HISTORY: Post-op TECHNIQUE: 1 view of the chest. COMPARISON: 01/10/2023 IMPRESSION: Right jugular line unchanged. Pulmonary vascular congestion again seen without lobar consolidation or significant pleural fluid. No cardiomegaly. Signed: Tarun Lopez MDReport Verified Date/Time: 01/11/2023 11:14:44 Reading Location: [address] Reading Room POCT- GLUCOSE [id number] 08:16:55 Test Item Value Reference Range Interpretation Comments POC-GLUCOSE METER 91 mg/dL 70-110 : Notified RN/MD: TESTED (BEAKER) (test code = AT [facility] 6720 [place] 1538) [facility], 770 30: Turnstile Attendant/Techni waylon ID = [id number] for Wendy Sanchez COMPREHENSIVE METABOLIC [id number] 05:44:24 Test Item Value Reference Range Interpretation [...] not appl icable for dialysis patien ts Turnstile Attendant ID - [id number] 05:40:37 Test Item Value Reference Range Interpretation Comments PHOSPHORUS (BEAKER) (test code = 3.8 mg/dL 2.3-4.7 604) Turnstile Attendant ID - [id number] 05:40:36 Test Item Value Reference Range Interpretation Comments MAGNESIUM (BEAKER) (test code = 1.9 mg/dL 1.6-2.6 627) Turnstile Attendant ID - MARCOPT/[id number] 05:17:13 Test Item Value Reference Range Interpretation [...] mechanical heart valves.CBC W/PLT COUNT & AUTO [id number] 05:08:50 Test Item Value Reference Range Interpretation [...] % 0.00-1.00 PERCENT (BEAKER) (test code = 4581) CALCIUM, [id number] 05:02:48 Test Item Value Reference Range Interpretation Comments CALCIUM IONIZED (BEAKER) (test 1.08 mmol/L 1.12-1.27 L code = 698) PH, BLOOD (BANNER) (test code = 7.43 1810) POCT-GLUCOSE [id number] 20:49:05 Test Item Value Reference Range Interpretation Comments POC-GLUCOSE METER 102 mg/dL 70-110 : TESTED A T [facility] 6720 (BANNER) (test code = RO[facility] [place] [facility], [facility]8) [address]: Turnstile Attendant/Techni waylon ID = [id number] for An Cash harrington POCT-GLUCOSE [id number] 17:37:48 Test Item Value Reference Range Interpretation Comments POC-GLUCOSE METER 88 mg/dL 70-110 : Notified RN/MD: TESTED (BANNER) (test code = AT [place] [address]) [facility], [facility] 30: Turnstile Attendant/Techni waylon ID = [id number] for Daniel , Wendy POCT-GLUCOSE [id number] 11:33:53 Test Item Value Reference Range Interpretation Comments POC-GLUCOSE METER 90 mg/dL 70-110 : Notified RN/MD: TESTED (BANNER) (test code = AT [place] [address]) [facility], [facility] 30: Turnstile Attendant/Techni waylon ID = [id number] for Daniel , Wendy POCT-GLUCOSE [id number] 08:22:47 Test Item Value Reference Range Interpretation Comments POC-GLUCOSE METER 78 mg/dL 70-110 : Notified RN/MD: TESTED (BANNER) (test code = AT [place] [address]) [facility], [facility] 30: Turnstile Attendant/Techni waylon ID = [id number] for Daniel , Wendy [id number] 06:34:37 Test Item Value Reference Range Interpretation Comments PARTIAL THROMBOPLASTIN TIME 100.5 seconds 22.5-36.0 H (BEAKER) (test code = 760) [id number] 06:34:36 Test Item Value Reference Range Interpretation Comments [facility] (test code = 15.4 seconds 11.9-14.2 H [...] not appl icable for dialysis patien ts Turnstile Attendant ID - [id number] 06:15:54 Test Item Value Reference Range Interpretation Comments PHOSPHORUS (BEAKER) (test code = 6.2 mg/dL 2.3-4.7 H 604) Turnstile Attendant ID - [id number] 06:15:53 Test Item Value Reference Range Interpretation Comments MAGNESIUM (BEAKER) (test code = 2.1 mg/dL 1.6-2.6 627) Turnstile Attendant ID - MILADOCBC (HEMOGRAM ONLY)2023-01-10 05:56:50 Test Item Value Reference [...] = 413) RAD, CHEST, 1 VIEW, NON [id number] 05:43:00Reason for exam:->Post-opShould this be performed at the bedside?->Yes [facility] 1975 Sex: FFINAL [...] Franklin Verified Date/Time: 01/10/2023 05:43:14 POCT- GLUCOSE [id number] 21:04:15 Test Item Value Reference Range Interpretation Comments POC-GLUCOSE METER 95 mg/dL 70-110 : TESTED A T [facility] 6720 [facility] (test code = [place], 1538) [address]: Turnstile Attendant/Techni waylon ID = [id number] for Cash Tobar [id number] 21:02:02 Test Item Value Reference Range Interpretation Comments PARTIAL THROMBOPLASTIN TIME 62.3 seconds 22.5-36.0 H (BEAKER) (test code = 760) CT, BRAIN, WITHOUT [id number] 20:56:00Reason for Exam (Free Text) - Addiitonal information for Radiologist->Supratherapeutic heparin with nose bleeding and now headache + dizziness r/o bleed. [facility] : 1975 Sex: FFINAL REPORT EXAM: CT, [...] Franklin MDReport Caitlin ified Date/Time: 01/09/2023 20:56:48 CB W/PLT COUNT & AUTO [id number] 19:34:05 Test Item Value Reference Range Interpretation [...] % 0.00-1.00 PERCENT (BEAKER) (test code = 4501) POCT-GLUCOSE [id number] 18:22:40 Test Item Value Reference Range Interpretation Comments POC-GLUCOSE METER 129 mg/dL 70-110 H : TESTED A T [facility] 6720 (BEAKER) (test code = [facility], 1538) [address]: Turnstile Attendant/Techni waylon ID = [id number] for Symone Parker POCT-GLUCOSE [id number] 16:27:18 Test Item Value Reference Range Interpretation Comments POC-GLUCOSE METER 194 mg/dL 70-110 H : TESTED A T [facility] 6720 (BEAKER) (test code = [facility], 1538) [address]: Turnstile Attendant/Techni waylon ID = [id number] for Jaydon Ac POCT-GLUCOSE [id number] 12:24:33 Test Item Value Reference Range Interpretation Comments POC-GLUCOSE METER 100 mg/dL 70-110 : TESTED A T [facility] 6720 (BANNER) (test code = [facility], 1538) [address]: Turnstile Attendant/Techni waylon ID = [id number] for Jaydon Ac RAD, CHEST, 1 VIEW, NON [id number] 08:57:00Reason for exam:->Post-opShould this be performed at the bedside?->Yes [facility] SHASTA : 1975 Sex: FFINAL REPORT Exam: RAD, CHEST, 1 VIEW, NON DEPTDate: 01/09/2023 8:55 AM Indication: Postoperative/Postprocedural Comparison: Chest x-ray from the prior day IMPRESSION: Lines/Tubes:Stable right internal jugular central venous catheter. Lungs: Unchanged low lung volumes. Bibasilar airspace opacities slightly increased which may represent subsegmental atelectasis or pneumonitis. Nonew focal consolidation. Pleura:No pleural effusion. No pneumothorax. Heart/Mediastinum:The cardiomediastinal silhouette is unchanged in size and contour. Bones/Soft Tissues: No acute osseous injury. Abdomen: No free air below the diaphragm. Signed: Pawna Macario MDReport Verified Date/Time: 01/09/2023 08:57:42 POCT- GLUCOSE [id number] 08:35:12 Test Item Value Reference Range Interpretation Comments POC-GLUCOSE METER 94 mg/dL 70-110 : TESTED A T [facility] 6720 (BEAKER) (test code = [facility] [place] [facility], 1538) [address]: Turnstile Attendant/Techni waylon ID = [id number] for Jaydon García [id number] 07:38:46 Test Item Value Reference Range Interpretation [...] not appl icable for dialysis patien ts Turnstile Attendant ID - [id number] 07:04:20 Test Item Value Reference Range Interpretation Comments PHOSPHORUS (BEAKER) (test code = 5.2 mg/dL 2.3-4.7 H 604) Turnstile Attendant ID - [id number] 07:04:18 Test Item Value Reference Range Interpretation Comments MAGNESIUM (BEAKER) (test code = 1.9 mg/dL 1.6-2.6 627) Turnstile Attendant ID - MARCOCBC (HEMOGRAM ONLY)2023-01-09 06:49:36 Test [...] WBC 0-0 (test code = 413) POCT-GLUCOSE [id number] 21:38:24 Test Item Value Reference Range Interpretation Comments POC-GLUCOSE METER 102 mg/dL 70-110 : TESTED A T [facility] 6720 (BEAKER) (test code = [facility], 153) [address]: Turnstile Attendant/Techni waylon ID = [id number] for Екатерина Joyner POCT-GLUCOSE [id number] 16:22:06 Test Item Value Reference Range Interpretation Comments POC-GLUCOSE METER 119 mg/dL 70-110 H : TESTED A T [facility] 6720 (BEAKER) (test code = [facility], 153) [address]: Turnstile Attendant/Techni waylon ID = [id number] for Jaydon Ac LACTATE DEHYDROGENASE (LDH)2023-01-08 15:43:39 Test Item Value Reference Range Interpretation Comments LACTATE DEHYDROGENASE (BEAKER) (test 444 U/L 125-220 H code = 635) Turnstile Attendant ID - [id number] 15:15:03 Test Item Value Reference Range Interpretation Comments HAPTOGLOBIN (BEAKER) (test code = 194 mg/dL 14-512 366) Turnstile Attendant ID - BSPOCT-GLUCOSE [id number] 11:58:39 Test Item Value Reference Range Interpretation Comments POC-GLUCOSE METER 130 mg/dL 70-110 H : TESTED A T [facility] 6720 (RHEA) (test code = [place], 1538) [address]: Turnstile Attendant/Techni waylon ID = [id number] for Jaydon Ac RAD, CHEST, 1 VIEW, NON [id number] 09:27:00Reason for exam:->Post-opShould this be performed at the bedside?->Yes [facility] SHASTA : 1975 Sex: FFINAL REPORT Exam: [...] Macario MDReport Verified Date/Time: 01/08/2023 09:27:38 CULOCYTE [id number] 09:23:14 Test Item Value Reference Range Interpretation Comments RETICULOCYTE COUNT PCT (BEAKER) (test 8.9 % 0.5-1.7 H code = 575) Turnstile Attendant ID - [id number] ID - [id number]-GLUCOSE [id number] 07:55:49 Test Item Value Reference Range Interpretation Comments POC-GLUCOSE METER 91 mg/dL 70-110 : TESTED A T [facility] 6720 (BEAKER) (test code = [place], 1538) [address]: Turnstile Attendant/Techni waylon ID = [id number] for Symone De La Rosa [id number] 07:21:57 Test Item Value Reference Range Interpretation Comments PHOSPHORUS (BEAKER) (test code = 4.1 mg/dL 2.3-4.7 604) Turnstile Attendant ID - [id number] 07:21:56 Test Item Value Reference Range Interpretation Comments MAGNESIUM (BEAKER) (test code = 1.9 mg/dL 1.6-2.6 627) Turnstile Attendant ID - MMCOMPREHENSIVE METABOLIC [id number] 07:21:55 Test Item Value Reference Range Interpretation [...] St age Description sq m Result G1 Norm al or [...] not appl icable for dialysis patien ts Turnstile Attendant ID - MMCBC (HEMOGRAM ONLY)2023-01-08 07:00:54 Test [...] /100 WBC 0-0 (test code = 413) [id number] 01:14:33 Test Item Value Reference Range Interpretation [...] is 2.5-3.5 for patients with mechanical heart valves.[id number] 01:14:32 Test Item Value Reference Range Interpretation Comments PARTIAL THROMBOPLASTIN TIME 76.9 seconds 22.5-36.0 H (BEAKER) (test code = 760) POCT-GLUCOSE [id number] 01:05:42 Test Item Value Reference Range Interpretation Comments POC-GLUCOSE METER 111 mg/dL 70-110 H : TESTED A T [facility] 6720 (BEAKER) (test code = [facility], 1538) [address]: Turnstile Attendant/Techni waylon ID = [id number] for Jamie Davis POCT-GLUCOSE [id number] 19:25:11 Test Item Value Reference Range Interpretation Comments POC-GLUCOSE METER 129 mg/dL 70-110 H : TESTED A T [facility] 6720 (BEAKER) (test code = [facility], 1538) [address]: Turnstile Attendant/Techni waylon ID = [id number] for MARGARET RANGEL DD [id number] 18:20:25 Test Item Value Reference Range Interpretation Comments PARTIAL THROMBOPLASTIN TIME 87.8 seconds 22.5-36.0 H (BEAKER) (test code = 760) SURGICALLY OBTAINED CULTURE + GRAM [id number] 16:53:45 Test Item Value Reference Range Interpretation [...] No organisms seen (BEAKER) (test code = 933529) [id number] 15:37:15 Test Item Value Reference Range Interpretation [...] (BEAKER) (test code = 413) Limited 2D [id number] 15:03:07Ejection FractionSLEH ECHO HEARTLAB MKCKESSON [facility] [id number] 13:39:57 Test Item Value Reference Range Interpretation Comments POC-GLUCOSE METER 122 mg/dL 70-110 H : TESTED A T [facility] 6720 (BEAKER) (test code = [facility] [place], 1538) [address]: Turnstile Attendant/Techni waylon ID = [id number] for MARGARET RANGEL DD [id number] 07:25:11 Test Item Value Reference Range Interpretation [...] 0-0 (BEAKER) (test code = 413) POCT-GLUCOSE [id number] 07:21:37 Test Item Value Reference Range Interpretation Comments POC-GLUCOSE METER 90 mg/dL 70-110 : TESTED A T [facility] 6720 (BEAKER) (test code = [facility] [place], 1538) [address]: Turnstile Attendant/Techni waylon ID = [id number] for Jamie aGge RAD, CHEST, 1 VIEW, NON [id number] 06:37:00Reason for exam:->Post-opShould this be performed at the bedside?->Yes [facility] : 1975 Sex: FFINAL [...] Stable surgical changes. Additional findings: None. Signed:Krystyna Altamirano MDReport Verified Date/Time: 01/07/2023 06:37:26 COMPREHENSIVE METABOLIC [id number] 03:15:13 Test Item Value Reference Range Interpretation [...] not appl icable for dialysis patien ts Turnstile Attendant ID - [id number] 02:11:14 Test Item Value Reference Range Interpretation Comments PHOSPHORUS (BEAKER) (test code = 5.4 mg/dL 2.3-4.7 H 604) Turnstile Attendant ID - [id number] 02:11:13 Test Item Value Reference Range Interpretation Comments MAGNESIUM (BEAKER) (test code = 2.1 mg/dL 1.6-2.6 627) Turnstile Attendant ID - BSVANCOMYCIN LEVEL, [id number] 02:07:09 Test Item Value Reference Range Interpretation Comments VANCOMYCIN RANDOM (BEAKER) (test 15.5 ug/mL code = 523) Reference Range: No NormalsOperator ID - BSPT/[id number] 01:59:49 Test Item Value Reference Range Interpretation [...] is 2.5-3.5 for patients with mechanical heart valves.[id number] 01:59:48 Test Item Value Reference Range Interpretation Comments PARTIAL THROMBOPLASTIN TIME 51.5 seconds 22.5-36.0 H (BEAKER) (test code = 760) [id number] 23:58:39 Test Item Value Reference Range Interpretation Comments PARTIAL THROMBOPLASTIN TIME 182.4 seconds 22.5-36.0 HH (BEAKER) (test code = 760) POCT-GLUCOSE [id number] 23:35:14 Test Item Value Reference Range Interpretation Comments POC-GLUCOSE METER 138 mg/dL 70-110 H : TESTED A T [facility] 6720 (BEAKER) (test code = [place], 1538) [address]: [employer] Attendant/Techni waylon ID = [id number] for Jamie Davis [id number] 18:20:03 Test Item Value Reference Range Interpretation Comments PARTIAL THROMBOPLASTIN TIME 79.7 seconds 22.5-36.0 H (BEAKER) (test code = 760) CBC W/PLT COUNT & AUTO [id number] 18:04:37 Test Item Value Reference Range Interpretation [...] PERCENT (BEAKER) (test code = 2801) POCT-GLUCOSE [id number] 16:24:36 Test Item Value Reference Range Interpretation Comments POC-GLUCOSE METER 112 mg/dL 70-110 H : TESTED Bryan Becerril [facility] 6720 (BEAKER) (test code = [place], 1538) [address]: Turnstile Attendant/Techni waylon ID = [id number] for EFRAIN BERMAN POCT-GLUCOSE [id number] 11:32:59 Test Item Value Reference Range Interpretation Comments POC-GLUCOSE METER 92 mg/dL 70-110 : TESTED A Jerrica [facility] 6720 (RHEA) (test code = [place], 1538) [address]: Turnstile Attendant/Techni waylon ID = [id number] for EFRAIN CARROLL [id number] 10:25:49 Test Item Value Reference Range Interpretation Comments PARTIAL THROMBOPLASTIN TIME 118.6 seconds 22.5-36.0 H (RHEA) (test code = 760) RAD, CHEST, 1 VIEW, NON [id number] 06:35:00Reason for exam:->Post-opShould this be performed at the bedside?->Yes [facility]JOSELIBORIO : 1975 Sex: FFINAL REPORT RAD, CHEST, [...] Stable surgical changes. Additional findings: None. Signed:Krystyna Altamirano Verified Date/Time: 01/06/2023 06:35:29 POCT-GLUCOSE [id number] 05:56:36 Test Item Value Reference Range Interpretation Comments POC-GLUCOSE METER 107 mg/dL 70-110 : TESTED A T [facility] 6720 (BEAKER) (test code = [place], 1538) [address]: Turnstile Attendant/Techni waylon ID = [id number] for Eduard Lopez [id number] 05:04:00 Test Item Value Reference Range Interpretation Comments HAPTOGLOBIN (BEAKER) (test code = 236 mg/dL 14-258 366) Turnstile Attendant ID - BSVANCOMYCIN LEVEL, [id number] 05:01:58 Test Item Value Reference Range Interpretation Comments VANCOMYCIN RANDOM (BEAKER) (test 17.5 ug/mL code = 523) Reference Range: No NormalsOperator ID - BSRETICULOCYTE [id number] 04:52:00 Test Item Value Reference Range Interpretation Comments RETICULOCYTE COUNT PCT (BEAKER) (test 5.8 % 0.5-1.7 H code = 575) Turnstile Attendant ID - [id number] METABOLIC [id number] 04:49:50 Test Item Value Reference Range Interpretation [...] not appl icable for dialysis patien ts Turnstile Attendant ID - MARIOLACTATE DEHYDROGENASE (LDH)2023-01-06 04:48:57 Test Item Value Reference Range Interpretation Comments LACTATE DEHYDROGENASE (BEAKER) (test 460 U/L 125-220 H code = 635) Turnstile Attendant ID - [id number] 04:48:56 Test Item Value Reference Range Interpretation Comments PHOSPHORUS (BEAKER) (test code = 4.4 mg/dL 2.3-4.7 604) Turnstile Attendant ID - [id number] 04:48:55 Test Item Value Reference Range Interpretation Comments MAGNESIUM (BEAKER) (test code = 2.1 mg/dL 1.6-2.6 627) Turnstile Attendant ID - MARIOPT/[id number] 04:34:16 Test Item Value Reference Range Interpretation [...] is 2.5-3.5 for patients with mechanical heart valves.[id number] 04:22:05 Test Item Value Reference Range Interpretation Comments FIBRINOGEN LEVEL (BEAKER) (test 501 mg/dl 225-434 H code = 658) CBC W/PLT COUNT & AUTO [id number] 04:15:27 Test Item Value Reference Range Interpretation [...] PERCENT (BEAKER) (test code = 2801) POCT-GLUCOSE [id number] 00:42:14 Test Item Value Reference Range Interpretation Comments POC-GLUCOSE METER 95 mg/dL 70-110 : TESTED A T [facility] 6720 (BEAKER) (test code = [facility], 1538) 116[address]: Turnstile Attendant/Techni waylon ID = [id number] for Eduard Torres [id number] 23:27:21 Test Item Value Reference Range Interpretation Comments PARTIAL THROMBOPLASTIN TIME 32.6 seconds 22.5-36.0 (BEAKER) (test code = 760) POCT-GLUCOSE [id number] 16:33:19 Test Item Value Reference Range Interpretation Comments POC-GLUCOSE METER 91 mg/dL 70-110 : TESTED A T [facility] 6720 (AKER) (test code = [facility], 1538) 138[address]: Turnstile Attendant/Techni waylon ID = [id number] for EFRAIN CARROLL RAD, CHEST, 1 VIEW, NON [id number] 16:20:00Reason for exam:->RIJ HD line placementShould this be performed at the bedside?->Yes [facility] GRISLIZ[facility] BRIGGS SHASTA : 1975 Sex: FFINAL REPORT Chest, 1 [...] Vascular congestion. No evidence of pneumothorax. Signed: Chad CastilloMDReport Verified Date/Time: 01/05/2023 16:20:59 Reading Location: [facility] Mammo Reading Room [id number] 15:39:10 Test Item Value Reference Range Interpretation Comments PARTIAL THROMBOPLASTIN TIME 29.3 seconds 22.5-36.0 (BEAKER) (test code = 760) POCT-GLUCOSE [id number] 11:24:17 Test Item Value Reference Range Interpretation Comments POC-GLUCOSE METER 106 mg/dL 70-110 : TESTED A T [facility] 6720 (BEAKER) (test code = ROZ [place] [facility], 1538) 70[address]: Turnstile Attendant/Techni waylon ID = [id number] for EFRAIN BERMAN ANAEROBIC [id number] 11:12:00 Test Item Value Reference Range Interpretation Comments CULTURE (BEAKER) (test No anaerobes isolated code = 1095) CBC W/PLT COUNT & AUTO [id number] 10:02:39 Test Item Value Reference Range Interpretation [...] (BEAKER) (test code = 2801) VANCOMYCIN LEVEL, [id number] 09:09:54 Test Item Value Reference Range Interpretation Comments VANCOMYCIN RANDOM (BEAKER) (test 17.4 ug/mL code = 523) Reference Range: No NormalsOperator ID - NEELAM [id number] 09:05:09 Test Item Value Reference Range Interpretation Comments PARTIAL THROMBOPLASTIN TIME 33.0 seconds 22.5-36.0 (BEAKER) (test code = 760) RAD, CHEST, 1 VIEW, NON [id number] 07:11:00Reason for exam:->Post-opShould this be performed at the bedside?->Yes [facility] : 1975 Sex: FFINAL REPORT RAD, CHEST, 1 VIEW, NON DEPT INDICATION: Post-op COMPARISON: Prior day's exam FINDINGS: Portable frontal view of the chest. IMPRESSION: Support Lines: Central catheter tip overlies the atriocaval junction. Lungs and pleura: Lungs are hypoinflated but otherwise clear. No significant pneumothorax. Heart and mediastinum: Normal contours. Stable surgical changes. Additional findings: None. Signed: Krystyna Altamirano Verified Date/Time: 01/05/2023 07:11:30 RETICULOCYTE [id number] 06:21:35 Test Item Value Reference Range Interpretation Comments RETICULOCYTE COUNT PCT (BEAKER) (test 7.8 % 0.5-1.7 H code = 575) Turnstile Attendant ID - 6000Operator ID - 6000POCT-GLUCOSE [id number] 05:56:00 Test Item Value Reference Range Interpretation Comments POC-GLUCOSE METER 72 mg/dL 70-110 : TESTED A T [facility] 6720 (BEAKER) (test code = [place], 1538) [address]: Turnstile Attendant/Techni waylon ID = [id number] for Marychuy Woodson COMPREHENSIVE METABOLIC [id number] 04:50:10 Test Item Value Reference Range Interpretation [...] not appl icable for dialysis patien ts Turnstile Attendant ID - NEELAM WLACTATE DEHYDROGENASE (LDH)2023-01-05 04:49:04 Test Item Value Reference Range Interpretation Comments LACTATE DEHYDROGENASE (BEAKER) (test 397 U/L 125-220 H code = 635) Turnstile Attendant ID - NEELAM [id number] 04:49:03 Test Item Value Reference Range Interpretation Comments PHOSPHORUS (BEAKER) (test code = 5.1 mg/dL 2.3-4.7 H 604) Turnstile Attendant ID - NEELAM [id number] 04:49:02 Test Item Value Reference Range Interpretation Comments MAGNESIUM (BEAKER) (test code = 2.3 mg/dL 1.6-2.6 627) Turnstile Attendant ID - NEELAM [id number] 04:41:39 Test Item Value Reference Range Interpretation Comments HAPTOGLOBIN (BEAKER) (test code = 229 mg/dL 14-258 366) Turnstile Attendant ID - DBPT/[id number] 04:36:50 Test Item Value Reference Range Interpretation [...] is 2.5-3.5 for patients with mechanical heart valves.[id number] 04:35:52 Test Item Value Reference Range Interpretation Comments FIBRINOGEN LEVEL (BEAKER) (test 420 mg/dl 225-434 code = 658) CBC W/PLT COUNT & AUTO [id number] 04:28:43 Test Item Value Reference Range Interpretation [...] 0.00-1.00 PERCENT (BEAKER) (test code = 2801) [id number] 01:41:59 Test Item Value Reference Range Interpretation Comments PARTIAL THROMBOPLASTIN TIME 74.0 seconds 22.5-36.0 H (BEAKER) (test code = 760) POCT-GLUCOSE [id number] 01:16:48 Test Item Value Reference Range Interpretation Comments POC-GLUCOSE METER 83 mg/dL 70-110 : TESTED A T [facility] 6720 (BEAKER) (test code = [place], 1538) [address]: Turnstile Attendant/Techni waylon ID = [id number] for Ashley daysi Lonjewell POCT-GLUCOSE [id number] 21:54:53 Test Item Value Reference Range Interpretation Comments POC-GLUCOSE METER 95 mg/dL 70-110 : TESTED A T [facility] 6720 (BEAKER) (test code = [place], 1538) 305[address]: Turnstile Attendant/Techni waylon ID = [id number] for Mayrchuy Woodson BASIC METABOLIC [id number] 20:21:52 Test Item Value Reference Range Interpretation [...] (test code = 697) EGFR (BEAKER) 27 Interpretati on of eGFR (test code = [...] not appl icable for dialysis patien ts Turnstile Attendant ID - [id number] 20:21:24 Test Item Value Reference Range Interpretation Comments PHOSPHORUS (BEAKER) 4.6 mg/dL 2.3-4.7 Specimen moderately (test code = 604) hemolyzed Turnstile Attendant ID - [id number] 20:21:23 Test Item Value Reference Range Interpretation Comments MAGNESIUM (BEAKER) 2.3 mg/dL 1.6-2.6 Specimen moderately (test code = 627) hemolyzed Turnstile Attendant ID - DBCALCIUM, [id number] 19:59:35 Test Item Value Reference Range Interpretation Comments CALCIUM IONIZED (BEAKER) (test 1.07 mmol/L 1.12-1.27 L code = 698) PH, BLOOD (BEAKER) (test code = 7.46 1810) [id number] 18:26:49 Test Item Value Reference Range Interpretation Comments PARTIAL THROMBOPLASTIN TIME 40.0 seconds 22.5-36.0 H (BEAKER) (test code = 760) POCT-GLUCOSE [id number] 17:41:07 Test Item Value Reference Range Interpretation Comments POC-GLUCOSE METER 80 mg/dL 70-110 : TESTED A T [facility] 6720 (BEAKER) (test code = [facility], 1538) 22563: Turnstile Attendant/Techni waylon ID = [id number] for Laure Catalan [id number] 11:43:48 Test Item Value Reference Range Interpretation Comments PARTIAL THROMBOPLASTIN TIME 29.3 seconds 22.5-36.0 (BEAKER) (test code = 760) PLATELET [id number] 11:40:36 Test Item Value Reference Range Interpretation Comments PLATELET COUNT (BEAKER) (test 142 K/CU MM 150-450 L code = 756) Turnstile Attendant ID - 6000Operator ID - 6000POCT-GLUCOSE [id number] 11:25:54 Test Item Value Reference Range Interpretation Comments POC-GLUCOSE METER 80 mg/dL 70-110 : TESTED A T [facility] 6720 (BEAKER) (test code = [facility], 1538) 34185: Turnstile Attendant/Techni waylon ID = [id number] for Laure Catalan (CELLAVISION MANUAL DIFF)2023-01-04 07:03:39 [...] CONCENTRATION Decreased (CELLAVISION)(BEAKER) (test code = 3438) Turnstile Attendant ID - 6000Operator ID - saray Chen comments: Slide comments:CBC W/PLT COUNT & AUTO [id number] 07:03:37 Test Item Value Reference Range Interpretation [...] H (BEAKER) (test code = 413) RETICULOCYTE [id number] 06:32:14 Test Item Value Reference Range Interpretation Comments RETICULOCYTE COUNT PCT (BEAKER) (test 8.1 % 0.5-1.7 H code = 575) Turnstile Attendant ID - 6000Operator ID - 6000RAD, CHEST, 1 VIEW, NON [id number] 06:24:00Reason for exam:->Post-opShould this be performed at the bedside?->[facility] RAHMAN GUANACOLIBORIO : 1975 Sex: FFINAL REPORT RAD, CHEST, 1 VIEW, NON DEPT INDICATION: Post-op COMPARISON: Prior day's exam FINDINGS: Portable frontal view of the chest. IMPRESSION: Support Lines: NG tube descends below the diaphragm. Central catheter tip overlies the atriocaval junction. Lungs and pleura: Platelike atelectasis within the right midlung and airspace opacities are increased, concerning for slightvolume overload. No significant pneumothorax. Heart and mediastinum: Normal contours. Stable surgical changes. Additional findings: None. Signed: Krystyna Altamirano MDReport Verified Date/Time: 306:24:09 /[id number] 06:02:48 Test Item Value Reference Range Interpretation Comments PROTIME (BANNER) (test code = 14.5 seconds 11.9-14.2 H 759) INR (BANNER) (test code = 370) 1.20 <=5.90 PARTIAL THROMBOPLASTIN TIME 27.8 seconds 22.5-36.0 (BEAKER) (test code = 760) RECOMMENDED COUMADIN/WARFARIN INR THERAPY RANGESSTANDARD DOSE: 2.0 - 3.0 Includes: PROPHYLAXIS for venous thrombosis, systemic embolization; TREATMENT for venous thrombosis and/or pulmonary embolus.HIGH RISK: Target INR is 2.5-3.5 for patients with mechanical heart valves.POCT-GLUCOSE [id number] 06:01:49 Test Item Value Reference Range Interpretation Comments POC-GLUCOSE METER 87 mg/dL 70-110 : TESTED A T [facility] 6720 (BANNER) (test code = [place], 1538) [address]: Turnstile Attendant/Techni waylon ID = [id number] for Volodymyr Dickinson [id number] 05:58:32 Test Item Value Reference Range Interpretation Comments FIBRINOGEN LEVEL (AKER) (test 420 mg/dl 225-434 code = 658) COMPREHENSIVE METABOLIC [id number] 05:54:37 Test Item Value Reference Range Interpretation Comments TOTAL PROTEIN 4.1 gm/dL 6.0-8.3 L (BEAKER) (test code = 770) ALBUMIN (AKER) 2.3 g/dL 3.5-5.0 L (test code = [...] not appl icable for dialysis patien ts Turnstile Attendant ID - DBLACTATE DEHYDROGENASE (LDH)2023-01-04 05:49:26 Test Item Value Reference Range Interpretation Comments LACTATE DEHYDROGENASE (BEAKER) (test 389 U/L 125-220 H code = 635) Turnstile Attendant ID - [id number] 05:49:25 Test Item Value Reference Range Interpretation Comments PHOSPHORUS (BEAKER) (test code = 5.5 mg/dL 2.3-4.7 H 604) Turnstile Attendant ID - [id number] 05:49:24 Test Item Value Reference Range Interpretation Comments MAGNESIUM (BEAKER) (test code = 2.4 mg/dL 1.6-2.6 627) Turnstile Attendant ID - [id number] 05:47:42 Test Item Value Reference Range Interpretation Comments HAPTOGLOBIN (BEAKER) (test code = 218 mg/dL 14-258 366) Turnstile Attendant ID - DBVANCOMYCIN LEVEL, [id number] 05:45:26 Test Item Value Reference Range Interpretation Comments VANCOMYCIN RANDOM (BEAKER) (test 23.0 ug/mL code = 523) Reference Range: No NormalsOperator ID - DBPOCT-GLUCOSE [id number] 01:42:50 Test Item Value Reference Range Interpretation Comments POC-GLUCOSE METER 105 mg/dL 70-110 : TESTED A T [facility] [address]20 (BEAKER) (test code = [place], 1538) 44[address]: Turnstile Attendant/Techni waylon ID = [id number] for Marychuy Flores BASIC METABOLIC [id number] 22:37:12 Test Item Value Reference Range Interpretation [...] not appl icable for dialysis patien ts Turnstile Attendant ID - [id number] 22:33:34 Test Item Value Reference Range Interpretation Comments PHOSPHORUS (BEAKER) (test code = 6.3 mg/dL 2.3-4.7 H 604) Turnstile Attendant ID - [id number] 22:33:33 Test Item Value Reference Range Interpretation Comments MAGNESIUM (BEAKER) (test code = 2.4 mg/dL 1.6-2.6 627) Turnstile Attendant ID - DBCALCIUM, [id number] 22:05:55 Test Item Value Reference Range Interpretation Comments CALCIUM IONIZED (BEAKER) (test 1.09 mmol/L 1.12-1.27 L code = 698) PH, BLOOD (BEAKER) (test code = 7.39 1810) POCT-GLUCOSE [id number] 17:30:43 Test Item Value Reference Range Interpretation Comments POC-GLUCOSE METER 115 mg/dL 70-110 H : TESTED A T [facility] 6720 (BEAKER) (test code = ROZ [place] [facility], 1538) [address]: Turnstile Attendant/Techni waylon ID = [id number] for DE KAMINI (V), JERO RAD, CHEST, 1 VIEW, NON [id number] 16:50:00Reason for exam:->NG tube placement confirmationShould this be performed at the bedside?->Yes [facility] SHASTA : 1975 Sex: FFINAL [...] abnormality. Upper abdomen: Unremarkable. Signed: Remington Berrios [facility]ort Verified Date/Time: 01/03/2023 16:50:15 (CELLAVISION MANUAL DIFF)2023-01-03 [...] CONCENTRATION Adequate (CELLAVISION)(BEAKER) (test code = 3438) Turnstile Attendant ID - Santa OverholtUser comments: Slide comments:CBC W/PLT COUNT & AUTO [id number] 14:50:35 Test Item Value Reference Range Interpretation [...] (BEAKER) (test code = 413) BASIC METABOLIC [id number] 14:32:05 Test Item Value Reference Range Interpretation [...] not appl icable for dialysis patien ts Turnstile Attendant ID - [id number] 14:22:38 Test Item Value Reference Range Interpretation Comments PHOSPHORUS (BEAKER) (test code = 6.4 mg/dL 2.3-4.7 H 604) Turnstile Attendant ID - [id number] 14:22:37 Test Item Value Reference Range Interpretation Comments MAGNESIUM (BEAKER) (test code = 2.5 mg/dL 1.6-2.6 627) Turnstile Attendant ID - SHARMAINEBlood gas, [id number] 13:41:35 Test Item Value Reference Range Interpretation Comments pH, Arterial (test code 7.34 7.35-7.45 L = 2744-1) pCO2, Arterial (test 38 See_Comment [Autom ated code = 2018-) message] The system which generated this result [...] 40 Lab Interpretation Abnormal (test code = 93327-0) [facility] [id number] 13:41:35 Test Item Value Reference Range Interpretation [...] (BEAKER) (test code = 1819) 40.0 CALCIUM, [id number] 13:40:45 Test Item Value Reference Range Interpretation Comments CALCIUM IONIZED (BEAKER) (test 1.14 mmol/L 1.12-1.27 code = 698) PH, BLOOD (BEAKER) (test code = 7.34 1810) RAD, ABDOMEN/KUB, 1 VIEW [id number] 12:16:00Reason for exam:->Previously has a retained object [facility] LIZBET RAHMAN : 1975 [...] MDReport Verified Date/Time: 01/03/2023 12:16:52 Sodium Na-Stat [id number] 09:25:46 Test Item Value Reference Range Interpretation Comments Sodium (test code = 2951-2) 129 meq/L 136-145 L Lab Interpretation (test code = Abnormal 45702-4) [facility] [id number] 09:25:46 Test Item Value Reference Range Interpretation Comments SODIUM (BEAKER) (test code = 381) 129 meq/L 136-145 L pH, [id number] 09:25:38 Test Item Value Reference Range Interpretation Comments pH, Arterial (test code = 2744-1) 7.29 7.35-7.45 L Lab Interpretation (test code = Abnormal 79521-2) [facility], [id number] 09:25:38 Test Item Value Reference Range Interpretation Comments PH ARTERIAL (BEAKER) (test code = 383) 7.29 7.35-7.45 L HGB/HCT (H&H)-Stat [id number] 09:25:31 Test Item Value Reference Range Interpretation Comments Hemoglobin (test code = 7.4 See_Comment L [Au tomated message] 718-7) The system [employer] generated this result transmitted ref erence range: 12.0 - 1 5.0 GM/DL. The refe rence range was not u sed to interpret this result as normal/abnor mal. Hematocrit (test code = 22.0 % 36.0-45.0 L 4544-3) Lab Interpretation (test Abnormal code = 22569-7) [facility] - STAT [id number] 09:25:31 Test Item Value Reference Range Interpretation Comments HEMOGLOBIN (BEAKER) (test code = 7.4 GM/DL 12.0-15.0 L 410) HEMATOCRIT (BEAKER) (test code = 22.0 % 36.0-45.0 L 411) BLOOD GAS, [id number] 09:25:19 Test Item Value Reference Range Interpretation [...] (BEAKER) (test code = 1819) 100.0 Potassium-Stat [id number] 09:25:13 Test Item Value Reference Range Interpretation Comments Potassium (test code = 2823-3) 4.0 meq/L 3.6-5.5 Lab Interpretation (test code = Normal 92901-3) [facility]OT[facility] [id number] 09:25:13 Test Item Value Reference Range Interpretation Comments POTASSIUM (BEAKER) (test code = 4.0 meq/L 3.6-5.5 379) Glucose-Stat [id number] 09:25:06 Test Item Value Reference Range Interpretation Comments Glucose (test code = 2345-7) 120 mg/dL 70-110 H Lab Interpretation (test code = Abnormal 16616-2) [facility] [id number] 09:25:06 Test Item Value Reference Range Interpretation Comments GLUCOSE RANDOM (BEAKER) (test code 120 mg/dL 70-110 H = 652) CALCIUM, [id number] 09:10:47 Test Item Value Reference Range Interpretation Comments CALCIUM IONIZED (BEAKER) (test 1.09 mmol/L 1.12-1.27 L code = 698) PH, BLOOD (BEAKER) (test code = 7.29 1810) BLOOD GAS, [id number] 09:09:14 Test Item Value Reference Range Interpretation [...] 1819) 100.0 RAD, CHEST, 1 VIEW, NON [id number] 06:42:00Reason for exam:->Post-opShould this be performed at the bedside?->Yes [facility] : 1975 Sex: FFINAL [...] Stable surgical changes. Additional findings: None. Signed: Sunday Altamirano Verified Date/Time: 01/03/2023 06:42:32 POCT-GLUCOSE [id number] 05:33:32 Test Item Value Reference Range Interpretation Comments POC-GLUCOSE METER 114 mg/dL 70-110 H : TESTED A T [facility] 6720 (BANNER) (test code = [place], 1538) [address]: Turnstile Attendant/Techni waylon ID = [id number] for Valerie Munson [id number] 05:24:09 Test Item Value Reference Range Interpretation Comments FIBRINOGEN LEVEL (AKER) (test 556 mg/dl 225-434 H code = 658) HCG, QUANTITATIVE, [id number] 05:22:07 Test Item Value Reference Range Interpretation Comments GONADOTROPIN, CHORIONIC (HCG) QUANT < mIU/mL 0-10 (BEAKER) (test code = 649) Non- Females: <10 mIU/mL Females: Gestation Age Reference Range(mIU/mL) 0.2-1 Week 5-50 1-2 Weeks 50-500 2-3 Weeks 100-5,000 3-4 Weeks 500-10,000 4-5 Weeks 1,000-50,000 5-6 Weeks 10,000-100,000 6-8 Weeks 15,000- 200,000 2-3 Months 10,000-100,000 Turnstile Attendant ID - RMCOMPREHENSIVE METABOLIC PANEL 2023-01-03 05:22:06 [...] not appl icable for dialysis patien ts Turnstile Attendant ID - NEELAM [id number] 05:22:05 Test Item Value Reference Range Interpretation Comments HAPTOGLOBIN (BEAKER) (test code = 332 mg/dL 14-258 H 366) Turnstile Attendant ID - RMOperator ID - RMLACTATE DEHYDROGENASE (LDH)2023-01-03 05:22:04 Test Item Value Reference Range Interpretation Comments LACTATE DEHYDROGENASE 482 U/L 125-220 H Specim en slightly (BEAKER) (test code = hemoly zed 635) Turnstile Attendant ID - NEELAM [id number] 05:12:48 Test Item Value Reference Range Interpretation Comments PHOSPHORUS (BEAKER) 4.7 mg/dL 2.3-4.7 Specimen slightly (test code = 604) hemolyzed Turnstile Attendant ID - NEELAM [id number] 05:12:47 Test Item Value Reference Range Interpretation Comments MAGNESIUM (BEAKER) 2.7 mg/dL 1.6-2.6 H Specimen slightly (test code = 627) hemolyzed Turnstile Attendant ID - NEELAM WRETICULOCYTE [id number] 05:04:04 Test Item Value Reference Range Interpretation Comments RETICULOCYTE COUNT PCT (BEAKER) (test 8.9 % 0.5-1.7 H code = 575) Turnstile Attendant ID - 6000PT/[id number] 04:51:14 Test Item Value Reference Range Interpretation [...] H (BEAKER) (test code = 413) CALCIUM, [id number] 04:32:54 Test Item Value Reference Range Interpretation Comments CALCIUM IONIZED (BEAKER) (test 1.12 mmol/L 1.12-1.27 code = 698) PH, BLOOD (BEAKER) (test code = 7.46 1810) BASIC METABOLIC [id number] 03:21:31 Test Item Value Reference Range Interpretation [...] not appl icable for dialysis patien ts Turnstile Attendant ID Jonathan [id number] 03:19:36 Test Item Value Reference Range Interpretation Comments PHOSPHORUS (BEAKER) (test code = 7.0 mg/dL 2.3-4.7 H 604) Turnstile Attendant ID Jonathan RICHTER [id number] 03:19:35 Test Item Value Reference Range Interpretation Comments MAGNESIUM (BEAKER) (test code = 3.2 mg/dL 1.6-2.6 H 627) Turnstile Attendant ID - NEELAM WPOCT-GLUCOSE [id number] 00:50:42 Test Item Value Reference Range Interpretation Comments POC-GLUCOSE METER 129 mg/dL 70-110 H : TESTED A T BSC 6720 (BEAKER) (test code = [place], 1538) [id number]: [facility]stile Attendant/Techni waylon ID = [id number] for Valerie Munson CALCIUM, [id number] 00:42:22 Test Item Value Reference Range Interpretation Comments CALCIUM IONIZED (BEAKER) (test 1.07 mmol/L 1.12-1.27 L code = 698) PH, BLOOD (BEAKER) (test code = 7.41 1810) RAD, CHEST, 1 VIEW, NON [id number] 19:52:00Reason for exam:->central lineShould this be performed at the bedside?->Yes [facility] : 1975 Sex: FFINAL [...] Luis MDReport Verified Date/Time: 01/02/2023 19:52:03 POCT-GLUCOSE [id number] 17:47:30 Test Item Value Reference Range Interpretation Comments POC-GLUCOSE METER 124 mg/dL 70-110 H : TESTED A T BSC 6720 (BEAKER) (test code = [place], 1538) [id number]: Turnstile Attendant/Techni waylon ID = [id number] for EFRAIN BERMAN BASIC METABOLIC [id number] 17:18:05 Test Item Value Reference Range Interpretation [...] not appl icable for dialysis patien ts Turnstile Attendant ID - [id number] 17:12:58 Test Item Value Reference Range Interpretation Comments PHOSPHORUS (BEAKER) (test code = 6.9 mg/dL 2.3-4.7 H 604) Turnstile Attendant ID - [id number] 17:12:57 Test Item Value Reference Range Interpretation Comments MAGNESIUM (BEAKER) (test code = 3.3 mg/dL 1.6-2.6 H 627) Turnstile Attendant ID - RMCALCIUM, [id number] 16:23:41 Test Item Value Reference Range Interpretation Comments CALCIUM IONIZED (BEAKER) (test 1.11 mmol/L 1.12-1.27 L code = 698) PH, BLOOD (BEAKER) (test code = 7.45 1810) POCT-GLUCOSE [id number] 11:39:00 Test Item Value Reference Range Interpretation Comments POC-GLUCOSE METER 151 mg/dL 70-110 H : TESTED A T [facility] 6720 (BEAKER) (test code = [facility] Yadi [facility], 1538) [address]: Turnstile Attendant/Techni waylon ID = [id number] for DE EFRAIN VELEZ BLOOD GAS, [id number] 09:45:08 Test Item Value Reference Range Interpretation [...] (BEAKER) (test code = 1819) 40.0 POCT-GLUCOSE [id number] 08:13:58 Test Item Value Reference Range Interpretation Comments POC-GLUCOSE METER 153 mg/dL 70-110 H : TESTED A T [facility] 6720 (BEAKER) (test code = [facility] Yadi [facility], 1538) [address]: Turnstile Attendant/Techni waylon ID = [id number] for EFRAIN BERMAN RAD, CHEST, 1 VIEW, NON [id number] 07:21:00Reason for exam:->Post-opShould this be performed at the bedside?->Yes [facility] 1975 Sex: FFINAL [...] changes. Additional findings: None. Signed: Krystyna Altamirano MDReport Verified Date/Time: 01/02/2023 07:21:57 BLOOD [id number] 07:00:27 Test Item Value Reference Range Interpretation Comments CULTURE (BEAKER) (test No growth in 5 days code = 1095) [id number] 02:21:12 Test Item Value Reference Range Interpretation Comments HAPTOGLOBIN (BEAKER) (test code = 250 mg/dL 14-258 366) Turnstile Attendant ID - EDCOMPREHENSIVE METABOLIC [id number] 02:21:06 Test Item Value Reference Range Interpretation [...] not appl icable for dialysis patien ts Turnstile Attendant ID - EDLACTATE DEHYDROGENASE (LDH)2023-01-02 02:21:00 Test Item Value Reference Range Interpretation Comments LACTATE DEHYDROGENASE 442 U/L 125-220 H Specim en slightly (BEAKER) (test code = hemoly zed 635) Turnstile Attendant ID - EDCALCIUM, [id number] 02:00:45 Test Item Value Reference Range Interpretation Comments CALCIUM IONIZED (BEAKER) (test 1.10 mmol/L 1.12-1.27 L code = 698) PH, BLOOD (BEAKER) (test code = 7.48 1810) [id number] 01:56:07 Test Item Value Reference Range Interpretation [...] is 2.5-3.5 for patients with mechanical heart valves.[id number] 01:56:06 Test Item Value Reference Range Interpretation Comments FIBRINOGEN LEVEL (BEAKER) (test 522 mg/dl 225-434 H code = 658) RETICULOCYTE [id number] 01:48:21 Test Item Value Reference Range Interpretation Comments RETICULOCYTE COUNT PCT 7.2 % 0.5-1.7 H Resul t corrected with (BEAKER) (test code = 575) 1 :5 DCL dilution. Turnstile Attendant ID - [id number] (HEMOGRAM ONLY)2023-01-02 01:37:07 Test [...] (BEAKER) (test code = 413) BASIC METABOLIC [id number] 00:43:09 Test Item Value Reference Range Interpretation [...] not appl icable for dialysis patien ts Turnstile Attendant ID - [id number] 00:36:42 Test Item Value Reference Range Interpretation Comments PHOSPHORUS (BEAKER) (test code = 6.4 mg/dL 2.3-4.7 H 604) Turnstile Attendant ID - [id number] 00:36:41 Test Item Value Reference Range Interpretation Comments MAGNESIUM (BEAKER) (test code = 3.3 mg/dL 1.6-2.6 H 627) Turnstile Attendant ID - EDCALCIUM, [id number] 00:17:21 Test Item Value Reference Range Interpretation Comments CALCIUM IONIZED (BEAKER) (test 1.12 mmol/L 1.12-1.27 code = 698) PH, BLOOD (BEAKER) (test code = 7.46 1810) BASIC METABOLIC [id number] 22:37:03 Test Item Value Reference Range Interpretation [...] not appl icable for dialysis patien ts Turnstile Attendant ID - [id number] 22:35:54 Test Item Value Reference Range Interpretation Comments PHOSPHORUS (BEAKER) (test code = 5.8 mg/dL 2.3-4.7 H 604) Turnstile Attendant ID - [id number] 22:35:53 Test Item Value Reference Range Interpretation Comments MAGNESIUM (BEAKER) (test code = 3.3 mg/dL 1.6-2.6 H 627) Turnstile Attendant ID - edCALCIUM, [id number] 22:03:28 Test Item Value Reference Range Interpretation Comments CALCIUM IONIZED (BEAKER) (test 1.16 mmol/L 1.12-1.27 code = 698) PH, BLOOD (BEAKER) (test code = 7.46 1810) BLOOD [id number] 19:00:31 Test Item Value Reference Range Interpretation Comments CULTURE (BEAKER) (test No growth in 5 days code = 1095) BLOOD [id number] 19:00:30 Test Item Value Reference Range Interpretation Comments CULTURE (BEAKER) (test No growth in 5 days code = 1095) POCT-GLUCOSE [id number] 18:25:31 Test Item Value Reference Range Interpretation Comments POC-GLUCOSE METER 180 mg/dL 70-110 H : TESTED A T [facility] 6720 (BEAKER) (test code = [place], 1538) [address]: Turnstile Attendant/Techni waylon ID = [id number] for ZELDA LINK RAD, CHEST, 1 VIEW, NON [id number] 16:22:00Reason for exam:->Post-opShould this be performed at the bedside?->Yes [facility]ASTA : 1975 Sex: [...] Verified Date/Time: 01/01/2023 16:22:46 Arterial Doppler leg, [id number] 12:35:39 Ejection FractionSLEH ECHO HEARTLAB MKCKESSON [facility] POCT-GLUCOSE [id number] 12:14:20 Test Item Value Reference Range Interpretation Comments POC-GLUCOSE METER 191 mg/dL 70-110 H : TESTED A T [facility] 6720 (BEAKER) (test code = ROZ [place] [facility], 1538) [address]: Turnstile Attendant/Techni waylon ID = [id number] for ZELDA LINK BLOOD GAS, [id number] 11:34:27 Test Item Value Reference Range Interpretation [...] (BEAKER) (test code = 1819) 40.0 SPIN/CONCENTRATION [id number] 08:07:42 Test Item Value Reference Range Interpretation Comments Concentration charged (test code = Done 0379) [facility] [id number] 08:07:42 Test Item Value Reference Range Interpretation Comments CONCENTRATION CHARGED (BEAKER) (test Done code = 5578) POCT-GLUCOSE [id number] 06:38:19 Test Item Value Reference Range Interpretation Comments POC-GLUCOSE METER 199 mg/dL 70-110 H : TESTED A T [facility] 6720 (BEAKER) (test code = [place], 1538) [address]: Turnstile Attendant/Techni waylon ID = [id number] for NIDA ELDRIDGE COMPREHENSIVE METABOLIC [id number] 04:03:23 Test Item Value Reference Range Interpretation [...] not appl icable for dialysis patien ts Turnstile Attendant ID - BSLACTATE DEHYDROGENASE (LDH)2023-01-01 03:55:40 Test Item Value Reference Range Interpretation Comments LACTATE DEHYDROGENASE (BEAKER) (test 346 U/L 125-220 H code = 635) Turnstile Attendant ID - [id number] 03:55:39 Test Item Value Reference Range Interpretation Comments PHOSPHORUS (BEAKER) (test code = 6.5 mg/dL 2.3-4.7 H 604) Turnstile Attendant ID - [id number] 03:55:38 Test Item Value Reference Range Interpretation Comments MAGNESIUM (BEAKER) (test code = 3.3 mg/dL 1.6-2.6 H 627) Turnstile Attendant ID - BSRETICULOCYTE [id number] 03:36:48 Test Item Value Reference Range Interpretation Comments RETICULOCYTE COUNT PCT (BEAKER) (test 11.3 % 0.5-1.7 H code = 575) Turnstile Attendant ID - [id number] 03:26:32 Test Item Value Reference Range Interpretation Comments HAPTOGLOBIN (BEAKER) (test code = 193 mg/dL 14-258 366) Turnstile Attendant ID - [id number] 03:25:53 Test Item Value Reference Range Interpretation [...] 0-0 H (BEAKER) (test code = 413) [id number] 03:16:34 Test Item Value Reference Range Interpretation [...] 2.5-3.5 for patients with mechanical heart valves.POCT-GLUCOSE [id number] 00:01:48 Test Item Value Reference Range Interpretation Comments POC-GLUCOSE METER 171 mg/dL 70-110 H : TESTED A T [facility] 6720 (BEAKER) (test code = RO[facility] [place] [facility], 1538) [address]: Turnstile Attendant/Techni waylon ID = [id number] for DO YOUNGHALINA JAINSY BASIC METABOLIC [id number] 18:42:39 Test Item Value Reference Range Interpretation [...] not appl icable for dialysis patien ts Turnstile Attendant ID - BSHEPATIC FUNCTION [id number] 18:40:26 Test Item Value Reference Range Interpretation [...] (test code = 22 U/L 6-55 347) Turnstile Attendant ID - [id number] 18:40:25 Test Item Value Reference Range Interpretation Comments PHOSPHORUS (BEAKER) (test code = 7.0 mg/dL 2.3-4.7 H 604) Turnstile Attendant ID - [id number] 18:40:24 Test Item Value Reference Range Interpretation Comments MAGNESIUM (BEAKER) (test code = 3.3 mg/dL 1.6-2.6 H 627) Turnstile Attendant ID - BSRAD, CHEST, 1 VIEW, NON [id number] 18:28:00Reason for exam:- >ETT placementShould this be performed at the bedside?->Yes [facility] : 1975 Sex: FFINAL [...] Demetrius Luis MDReport Verified Date/Time: 12/31/2022 18:28:19 /[id number] 18:27:38 Test Item Value Reference Range Interpretation [...] 2.5-3.5 for patients with mechanical heart valves.PROTHROMBIN TIME/[id number] 18:26:54 Test Item Value Reference Range Interpretation [...] mechanical heart valves.CBC W/PLT COUNT & AUTO [id number] 18:20:54 Test Item Value Reference Range Interpretation [...] (BEAKER) (test code = 413) BLOOD GAS, [id number] 18:17:12 Test Item Value Reference Range Interpretation [...] = 1819) 50.0 HGB/HCT (H&H) - STAT [id number] 15:24:18 Test Item Value Reference Range Interpretation Comments HEMOGLOBIN (BEAKER) (test code = 6.8 GM/DL 12.0-15.0 L 410) HEMATOCRIT (BEAKER) (test code = 20.0 % 36.0-45.0 L 411) SODIUM NA-STAT [id number] 15:24:17 Test Item Value Reference Range Interpretation Comments SODIUM (BEAKER) (test code = 381) 130 meq/L 136-145 L BLOOD GAS, [id number] 15:24:16 Test Item Value Reference Range Interpretation [...] (BEAKER) (test code = 1819) 93.0 POTASSIUM-STAT [id number] 15:24:05 Test Item Value Reference Range Interpretation Comments POTASSIUM (BEAKER) (test code = 4.2 meq/L 3.6-5.5 379) GLUCOSE-STAT [id number] 15:24:04 Test Item Value Reference Range Interpretation Comments GLUCOSE RANDOM (BEAKER) (test code 146 mg/dL 70-110 H = 652) CALCIUM, [id number] 15:23:01 Test Item Value Reference Range Interpretation Comments CALCIUM IONIZED (BEAKER) (test 1.12 mmol/L 1.12-1.27 code = 698) PH, BLOOD (BEAKER) (test code = 7.39 1810) HGB/HCT (H&H) - STAT [id number] 14:46:12 Test Item Value Reference Range Interpretation Comments HEMOGLOBIN (BEAKER) (test code = 6.6 GM/DL 12.0-15.0 L 410) HEMATOCRIT (BEAKER) (test code = 19.0 % 36.0-45.0 L 411) SODIUM NA-STAT [id number] 14:46:11 Test Item Value Reference Range Interpretation Comments SODIUM (BEAKER) (test code = 381) 131 meq/L 136-145 L BLOOD GAS, [id number] 14:46:10 Test Item Value Reference Range Interpretation [...] (BEAKER) (test code = 1819) 95.0 POTASSIUM-STAT [id number] 14:45:58 Test Item Value Reference Range Interpretation Comments POTASSIUM (BEAKER) (test code = 3.6 meq/L 3.6-5.5 379) GLUCOSE-STAT [id number] 14:45:57 Test Item Value Reference Range Interpretation Comments GLUCOSE RANDOM (BEAKER) (test code 141 mg/dL 70-110 H = 652) PH, [id number] 14:45:56 Test Item Value Reference Range Interpretation Comments PH ARTERIAL (BEAKER) (test code = 383) 7.40 7.35-7.45 CALCIUM, [id number] 14:45:34 Test Item Value Reference Range Interpretation Comments CALCIUM IONIZED (BEAKER) (test 1.14 mmol/L 1.12-1.27 code = 698) PH, BLOOD (BEAKER) (test code = 7.38 1810) POCT-GLUCOSE [id number] 12:27:38 Test Item Value Reference Range Interpretation Comments POC-GLUCOSE METER 148 mg/dL 70-110 H : TESTED A T [facility] 6720 (BEAKER) (test code = [place], 1538) [address]: Turnstile Attendant/Techni waylon ID = [id number] for [facility] [place], [id number] 11:03:00Unlisted Reason for Exam - Click Yes and Enter Reason Below->YesUnlisted Reason for Exam->Evaluate for SBOProtocol Please Specify:->Standard ProtocolWill this procedure require oral contrast?->Yes [facility] : 1975 Sex: FAddendum BeginsREPORT STATUS:A Pneumoperitoneum findings were relayed to PANTERA NAVARRO MD at 9:51 AM on 12/31/2022 Signed: Renetta Novoa Verified Date/Time: 12/31/2022 11:03:59 Reading Location: [facility] Diagnostic Imaging Reading Room - [place] [id number] [id number], ABDOMEN \\T\\ PELVIS, WITHOUT [...] Novoa Verified Date/Time: 12/31/2022 09:55:52 Reading Location: [facility] Diagnostic Imaging Reading Room - [place] [address] 1129 POCT-GLUCOSE [id number] 10:41:08 Test Item Value Reference Range Interpretation Comments POC-GLUCOSE METER 141 mg/dL 70-110 H : TESTED A T [facility] 6720 (BEAKER) (test code = RO[facility] [place] [facility], 1538) [address]: Turnstile Attendant/Techni waylon ID = [id number] for Alfred Hess (CELLAVISION MANUAL DIFF)2022-12-31 09:51:27 [...] CONCENTRATION Adequate (CELLAVISION)(BEAKER) (test code = 3438) Turnstile Attendant ID - [id number] ID - saray Chen comments: Slide comments:CBC W/PLT COUNT & AUTO [id number] 09:51:25 Test Item Value Reference Range Interpretation [...] 0-0 H (BEAKER) (test code = 413) [id number] 09:37:09 Test Item Value Reference Range Interpretation [...] is 2.5-3.5 for patients with mechanical heart valves.[id number] 09:36:52 Test Item Value Reference Range Interpretation Comments FIBRINOGEN LEVEL (BEAKER) (test 555 mg/dl 225-434 H code = 658) RETICULOCYTE [id number] 09:30:56 Test Item Value Reference Range Interpretation Comments RETICULOCYTE COUNT PCT (BEAKER) (test 17.2 % 0.5-1.7 H code = 575) Turnstile Attendant ID - [id number] ID - [id number], [id number] 09:22:08 Test Item Value Reference Range Interpretation Comments CALCIUM IONIZED (BEAKER) (test 1.27 mmol/L 1.12-1.27 code = 698) PH, BLOOD (BEAKER) (test code = 7.40 1810) POCT-GLUCOSE [id number] 06:51:02 Test Item Value Reference Range Interpretation Comments POC-GLUCOSE METER 201 mg/dL 70-110 H : TESTED A T [facility] 6720 (BEAKER) (test code = ROZ [place] [facility], 1538) [address]: Turnstile Attendant/Techni waylon ID = [id number] for Azucena Elkins COMPREHENSIVE METABOLIC [id number] 05:46:26 Test Item Value Reference Range Interpretation [...] not appl icable for dialysis patien ts Turnstile Attendant ID - BSLACTATE DEHYDROGENASE (LDH)2022-12-31 05:45:56 Test Item Value Reference Range Interpretation Comments LACTATE DEHYDROGENASE (BEAKER) (test 557 U/L 125-220 H code = 635) Turnstile Attendant ID - [id number] 05:45:55 Test Item Value Reference Range Interpretation Comments PHOSPHORUS (BEAKER) (test code = 7.7 mg/dL 2.3-4.7 H 604) Turnstile Attendant ID - [id number] 05:45:53 Test Item Value Reference Range Interpretation Comments MAGNESIUM (BEAKER) (test code = 3.8 mg/dL 1.6-2.6 H 627) Turnstile Attendant ID - [id number] 05:39:51 Test Item Value Reference Range Interpretation Comments HAPTOGLOBIN (BEAKER) (test code = 229 mg/dL 14-258 366) Turnstile Attendant ID - BSPOCT-GLUCOSE [id number] 20:43:02 Test Item Value Reference Range Interpretation Comments POC-GLUCOSE METER 229 mg/dL 70-110 H : TESTED A T [facility] 6720 (BEAKER) (test code = [place], 1538) [address]: Turnstile Attendant/Techni waylon ID = [id number] for Senia Fritz RAD, CHEST, 1 VIEW, NON [id number] 20:02:00Reason for exam:->SobShould this be performed at the bedside?->Yes [facility] SHASTA : 1975 Sex: [...] acute osseous injury. Abdomen: Unremarkable. Signed: Pawan Macario MDReport Verified Date/Time: 12/30/2022 20:02:29 POCT-GLUCOSE [id number] 16:53:49 Test Item Value Reference Range Interpretation Comments POC-GLUCOSE METER 234 mg/dL 70-110 H : TESTED A T [facility] 6720 (BEAKER) (test code = [place], 1538) [address]: Turnstile Attendant/Techni waylon ID = [id number] for Emily Flores BLOOD [id number] 13:02:08 Test Item Value Reference Range Interpretation [...] d message] code = 143) The system whic h generated this result transmitted ref erence range: Suscepti ble 0-2 , Dose Depe ndent Susceptible <0 or >2 , Resi. The ref erence range was not u sed to interpret this result as normal/abnor mal. Itraconazole (test See_Comment S [Automat ed message] code = 146) The system [employer] generated this result transmitted ref erence range: Suscepti ble 0-0.125 , Dose Dependent Susce ptible <0 or >.125. Th e reference range was not used to int erpret this result as normal/abnormal . Micafungin (test See_Comment S [Automated message] code = 148) The system [employer] generated this result transmitted ref erence range: Suscepti ble 0-0.25 , Non-susceptible <0 or >.25 , Resistan t . The reference r stefanie was not used to interpret this result as normal/abnor mal. Posaconazole (test See_Comment [Automat ed message] code = 152) The system [employer] generated this result transmitted ref erence range: Suscepti ble >0-0 , No Interpretations Established <=0 or >0 . The reference range was not used to interpret this result as normal/abnor mal. Voriconazole (test See_Comment S [Automat ed message] code = 153) The system [employer] generated this result transmitted ref erence range: Suscepti ble 0-0.12 , Dose Dependent Susce ptible <0 or >.12 ,. T he reference range was not used to int erpret this result as normal/abnormal . GRAM STAIN RESULT From aerobic (BEAKER) (test bottle only: code = 1123) budding yeast POCT-GLUCOSE [id number] 11:57:31 Test Item Value Reference Range Interpretation Comments POC-GLUCOSE METER 206 mg/dL 70-110 H : TESTED A T [facility] 6720 (BEAKER) (test code = [facility], 1538) [address]: Turnstile Attendant/Techni waylon ID = [id number] for Emily Flores POCT-GLUCOSE [id number] 11:28:49 Test Item Value Reference Range Interpretation Comments POC-GLUCOSE METER 156 mg/dL 70-110 H : TESTED A T [facility] 6720 (BEAKER) (test code = [facility], 153) [address]: Turnstile Attendant/Techni waylno ID = [id number] for Azucena Elkins RAD, ABDOMEN/KUB, 1 VIEW [id number] 09:02:00Reason for exam:->abdominal painShould this be performed at the bedside?->Yes [facility] : 1975 Sex: FFINAL REPORT RAD, ABDOMEN/KUB, 1 VIEW AP CLINICAL HISTORY: abdominal pain TECHNIQUE: RAD, ABDOMEN/KUB, 1 VIEW AP COMPARISON: 12/29/2022 IMPRESSION:Reduced gas-distended stomach. Gasfilled large and small bowel loops are similar and nonspecific in appearance, correlate for ileus. Limited supine imaging without gross evidence of free air. Signed: Zachariah Lopez MDReport Verified Date/Time: 12/30/2022 09:02:41 COMPREHENSIVE METABOLIC [id number] 03:00:44 Test Item Value Reference Range Interpretation [...] not appl icable for dialysis patien ts Turnstile Attendant ID - BSSpecimen slightly jiwemmyYFKZNFEYOIU4429-49-72 03:00:25 Test Item Value Reference Range Interpretation Comments HAPTOGLOBIN (BEAKER) (test code = 187 mg/dL 14-258 366) Turnstile Attendant ID - BSLACTATE DEHYDROGENASE (LDH)2022-12-30 02:55:23 Test Item Value Reference Range Interpretation Comments LACTATE DEHYDROGENASE (BEAKER) (test 645 U/L 125-220 H code = 635) Turnstile Attendant ID - [id number] 02:55:22 Test Item Value Reference Range Interpretation Comments PHOSPHORUS (BEAKER) (test code = 6.4 mg/dL 2.3-4.7 H 604) Turnstile Attendant ID - [id number] 02:55:21 Test Item Value Reference Range Interpretation Comments MAGNESIUM (BEAKER) (test code = 2.5 mg/dL 1.6-2.6 627) Turnstile Attendant ID - BSRETICULOCYTE [id number] 02:51:04 Test Item Value Reference Range Interpretation Comments RETICULOCYTE COUNT PCT (BEAKER) (test 20.5 % 0.5-1.7 H code = 575) Turnstile Attendant ID - [id number] ID - [id number]/[id number] 02:44:57 Test Item Value Reference Range Interpretation [...] is 2.5-3.5 for patients with mechanical heart valves.[id number] 02:44:40 Test Item Value Reference Range Interpretation [...] H (BEAKER) (test code = 413) POCT-GLUCOSE [id number] 21:05:36 Test Item Value Reference Range Interpretation Comments POC-GLUCOSE METER 158 mg/dL 70-110 H : TESTED A T [facility] 6720 (BEAKER) (test code [facility], = 1538) [address]: Turnstile Attendant/Techni waylon ID = [id number] for SUGU , MELANIENAMOL CREATINE KINASE (CK)2022-12-29 20:02:17 Test Item Value Reference Range Interpretation Comments CREATINE KINASE TOTAL (BEAKER) (test 178 U/L 29-200 code = 380) Turnstile Attendant ID - BSCBC (HEMOGRAM ONLY)2022-12-29 18:23:40 Test [...] H (BEAKER) (test code = 413) POCT-GLUCOSE [id number] 17:45:14 Test Item Value Reference Range Interpretation Comments POC-GLUCOSE METER 210 mg/dL 70-110 H : TESTED A T [facility] 6720 (RHEA) (test code [place], = 1538) [address]: Turnstile Attendant/Techni waylon ID = [id number] for Zoey Cummings, CHEST, 1 VIEW, NON [id number] 17:06:00Reason for exam:->R IJ placementShould this be performed at the bedside?->Yes [facility] : 1975 Sex: FFINAL [...] No acute bone abnormality. Signed: Colt Thomas Verified Date/Time: 12/29/2022 17:06:43 RAD, ABDOMEN/KUB, 1 VIEW AP 2022-12-29 14:54:00Reason for exam:->Distension [facility] : 1975 Sex: FFINAL REPORT RAD, ABDOMEN/KUB, 1 VIEW AP CLINICAL HISTORY: Distension TECHNIQUE: RAD, ABDOMEN/KUB, 1 VIEW AP COMPARISON: 12/27/2022 IMPRESSION:Increased gaseous distention of stomach. Gas filled large and small bowel loops are similar and nonspecific in appearance. Correlate for gastroparesis with gastroenterocolitis. Interval removal of left femoral catheter. No free air. Signed:Zachariah Lopez MDReport Verified Date/Time: 12/29/2022 14:54:19 POCT- GLUCOSE [id number] 11:48:13 Test Item Value Reference Range Interpretation Comments POC-GLUCOSE METER 148 mg/dL 70-110 H : TESTED A T [facility] 6720 (BEAKER) (test code [facility], = 1538) [address]: Turnstile Attendant/Techni waylon ID = [id number] for Kiran jay Zoey (CELLAVISION MANUAL DIFF)2022-12-29 08:05:42 Test Item Value [...] CONCENTRATION Adequate (CELLAVISION)(BEAKER) (test code = 3438) Turnstile Attendant ID - saray Chen comments: Slide comments:CBC W/PLT COUNT & AUTO [id number] 08:05:40 Test Item Value Reference Range Interpretation [...] H (BEAKER) (test code = 413) POCT-GLUCOSE [id number] 07:47:45 Test Item Value Reference Range Interpretation Comments POC-GLUCOSE METER 154 mg/dL 70-110 H : TESTED A T [facility] 6720 (BEAKER) ([facility] = 1538[facility] [address]: Turnstile Attendant/Techni waylon ID = [id number] for Zoey Cummings Urinalysis with Microscopic If [id number] 06:34:52 Test Item Value Reference Range Interpretation Comments Color, UA (test code = 5778-6) Brown Clarity, UA (test code = 5767-9) Cloudy Specific [place], UA (test code = 1.015 1.001-1.035 5811-5) pH, UA (test code = 5803-2) 6.0 5.0-8.0 Protein, UA (test code = 33324-8) >=300 mg/dL negative A Glucose, UA (test code = 365) 100 mg/dL Negative A Ketones, UA (test code = 2514-8) 15 mg/dL negative A Bilirubin, UA (test code = Positive Negative A 97418-7) Blood, UA (test code = 02897-1) Large Negative A Nitrite, UA (test code = 5802-4) Negative Negative Leukocytes, UA (test code = Negative Negative 5799-2) Urobilinogen, UA (test code = 1.0 76039-4) Specimen Source (test code = 2795) Lab Interpretation (test code = Abnormal 03511-2) [facility] [id number] 06:34:52 Test Item Value Reference Range Interpretation [...] SOURCE(BEAKER) (test code = 2795) Urinalysis Microscopic [id number] 06:34:44 Test Item Value Reference Range Interpretation Comments RBC, UA (test 9 See_Comment [Automated me ssage] code = 54833-8) The system [employer] generated this result transmitted ref erence range: /HPF. Th e reference range was not used to int erpret this result as normal/abnormal . WBC, UA (test 11 See_Comment [Automated me ssage] code = 5821-4) The system [facility] generated this result transmitted ref erence range: /HPF. Th e reference range was not used to int erpret this result as normal/abnormal . Squam Epithel, 1 See_Comment [Automated m essage] UA (test code = The system [employer] 10354-6) generated this result transmitted ref erence range: /HPF. Th e reference range was not used to int erpret this result as normal/abnormal . Yeast (test Many code = 79578-7) AREN (test code Turnstile Attendant ID - tech = AREN) [facility] [id number] 06:34:44 Test Item Value Reference Range Interpretation Comments RBC UA (BEAKER) (test code = 519) 9 /HPF WBC UA (BEAKER) (test code = 520) 11 /HPF SQUAMOUS EPITHELIAL (BEAKER) (test 1 /HPF code = 516) YEAST (BEAKER) (test code = 1585) Many Turnstile Attendant ID - techRETICULOCYTE [id number] 04:27:54 Test Item Value Reference Range Interpretation Comments RETICULOCYTE COUNT PCT (BEAKER) (test 16.5 % 0.5-1.7 H code = 575) Turnstile Attendant ID - MonicaBASIC METABOLIC [id number] 04:18:08 Test Item Value Reference Range Interpretation [...] not appl icable for dialysis patien ts Turnstile Attendant ID - NEELAM WLACTATE DEHYDROGENASE (LDH)2022-12-29 04:16:57 Test Item Value Reference Range Interpretation Comments LACTATE DEHYDROGENASE (BEAKER) (test 649 U/L 125-220 H code = 635) Turnstile Attendant ID - NEELAM WHEPATIC FUNCTION [id number] 04:16:56 Test Item Value Reference Range Interpretation [...] (test code = 39 U/L 6-55 347) Turnstile Attendant ID - NEELAM [id number] 04:16:54 Test Item Value Reference Range Interpretation Comments PHOSPHORUS (BEAKER) (test code = 8.9 mg/dL 2.3-4.7 H 604) Turnstile Attendant ID - NEELAM [id number] 04:16:53 Test Item Value Reference Range Interpretation Comments MAGNESIUM (BEAKER) (test code = 2.5 mg/dL 1.6-2.6 627) Turnstile Attendant ID - NEELAM [id number] 04:12:55 Test Item Value Reference Range Interpretation Comments HAPTOGLOBIN (BEAKER) (test code = 141 mg/dL 14-258 366) Turnstile Attendant ID - ADMINPT/RXOD1110-41-86 04:11:32 Test Item Value Reference Range Interpretation [...] is 2.5-3.5 for patients with mechanical heart valves.[id number] 04:11:31 Test Item Value Reference Range Interpretation Comments FIBRINOGEN LEVEL (BEAKER) (test 238 mg/dl 225-434 code = 658) CALCIUM, [id number] 03:56:40 Test Item Value Reference Range Interpretation Comments CALCIUM IONIZED (BEAKER) (test 1.03 mmol/L 1.12-1.27 L code = 698) PH, BLOOD (BEAKER) (test code = 7.44 1810) POCT-GLUCOSE [id number] 03:54:47 Test Item Value Reference Range Interpretation Comments POC-GLUCOSE METER 178 mg/dL 70-110 H : TESTED A T [facility] 6720 (BEAKER) (test code = [facility], 1538) [address]: Turnstile Attendant/Techni waylon ID = [id number] for Brunilda ttrell, [place] POCT-GLUCOSE [id number] 21:30:35 Test Item Value Reference Range Interpretation Comments POC-GLUCOSE METER 319 mg/dL 70-110 H : TESTED A T [facility] 6720 (BEAKER) (test code = [facility], 1538) 47441: Turnstile Attendant/Techni waylon ID = [id number] for Brunilda ttrell, Kennedy POCT-GLUCOSE [id number] 14:37:58 Test Item Value Reference Range Interpretation Comments POC-GLUCOSE METER 259 mg/dL 70-110 H : TESTED A T [facility] 6720 (BEAKER) (test code = [facility], 1538) 029[address]: Turnstile Attendant/Techni waylon ID = [id number] for Cedrick hamptonAnayeli Limited 2D Kqwvzmpysxoadc0316-11-74 08:41:00 Test Item Value Reference Range Interpretation Comments Ejection Fraction Est EF is > 55% (test code = 2574) Radiology Study observation (narrative) (test code = 69550-3) PXN (test code = System, Provider Not In - PXN) 12/28/2022 Transthoracic Echocardiography Report (TTE) Demographics Patient Name LIZBET RAHMAN Date of Study 12/27/2022 [place] Gender Female Visit Number [id number] Race Unknown Room Number 7219 Number Date of 1975 Referring Physician Twila Thakkar Age 47 year(s) Reporting Developer Lorenza Lorenzana RDCS Interpreting Fidelia Ceballos MD Physician Procedure Type of Study TTE procedure:LIMITED 2D ECHOCARDIOGRAM (SABRINA) Indications:Suspected infective endocarditis with positive cultures or newmurmur.Clinical HistoryAIHA, ASTHMA, HTN, HYPOTHYROID, OBESITY, MJ, AD3Gpjluz: 62 inches Weight: 102.06 kg (225 lbs) [...] mmHg Pulmonic Valve Estimated PASP: 39.34 mmHg [facility] [id number] 08:26:45 Test Item Value Reference Range Interpretation Comments POC-GLUCOSE METER 174 mg/dL 70-110 H : TESTED A T [facility] 6720 (RHEA) (test code = [place], 1538) [address]: Turnstile Attendant/Techni waylon ID = [id number] for Anayeli Herr (CELLAVISION MANUAL DIFF)2022-12-28 07:20:18 [...] CONCENTRATION Adequate (CELLAVISION)(BEAKER) (test code = 3438) Turnstile Attendant ID - saray Chen comments: Slide comments:CBC W/PLT COUNT & AUTO [id number] 07:19:57 Test Item Value Reference Range Interpretation [...] 0-0 H (BEAKER) (test code = 413) [id number] 05:08:45 Test Item Value Reference Range Interpretation Comments HAPTOGLOBIN (BEAKER) (test code = 113 mg/dL 14-258 366) Turnstile Attendant ID - BSBASIC METABOLIC [id number] 04:37:34 Test Item Value Reference Range Interpretation [...] (test code = 697) EGFR (BEAKER) 25 Interpretati on of eGFR (test code = [...] not appl icable for dialysis patien ts Turnstile Attendant ID - MARCOSpecimen slightly ictericLACTATE DEHYDROGENASE (LDH) 2022-12-28 04:36:33 Test Item Value Reference Range Interpretation Comments LACTATE DEHYDROGENASE (BEAKER) (test 674 U/L 125-220 H code = 635) Turnstile Attendant ID - MARCOHEPATIC FUNCTION [id number] 04:36:32 Test Item Value Reference Range Interpretation [...] (test code = 46 U/L 6-55 347) Turnstile Attendant ID - MILADOSpecimen slightly cprxltuBAJAKDYACC8297-02-98 04:36:31 Test Item Value Reference Range Interpretation Comments PHOSPHORUS (BEAKER) (test code = 5.9 mg/dL 2.3-4.7 H 604) Turnstile Attendant ID - RHBJQVYONYMOZG3801-86-72 04:36:30 Test Item Value Reference Range Interpretation Comments MAGNESIUM (BEAKER) (test code = 2.5 mg/dL 1.6-2.6 627) Turnstile Attendant ID - ZXTPPYYFZFVJVDD0998-30-40 04:05:38 Test Item Value Reference Range Interpretation Comments FIBRINOGEN LEVEL (BEAKER) (test 201 mg/dl 225-434 L code = 658) [id number] 04:05:37 Test Item Value Reference Range Interpretation Comments PROTIME (BEAKER) (test code = 14.7 seconds 11.9-14.2 H 759) INR (GottaParkAKER) (test code = 370) 1.22 <=5.90 PARTIAL THROMBOPLASTIN TIME 26.7 seconds 22.5-36.0 (BEAKER) (test code = 760) RECOMMENDED COUMADIN/WARFARIN INR THERAPY RANGESSTANDARD DOSE: 2.0 - 3.0 Includes: PROPHYLAXIS for venous thrombosis, systemic embolization; TREATMENT for venous thrombosis and/or pulmonary embolus.HIGH RISK: Target INR is 2.5-3.5 for patients with mechanical heart valves.RETICULOCYTE [id number] 04:03:20 Test Item Value Reference Range Interpretation Comments RETICULOCYTE COUNT PCT (GottaParkAKER) (test 17.4 % 0.5-1.7 H code = 575) Turnstile Attendant ID - 6000POCT-GLUCOSE [id number] 23:16:07 Test Item Value Reference Range Interpretation Comments POC-GLUCOSE METER 219 mg/dL 70-110 H : TESTED A T [facility] 6720 ([employer]) (test code = [place], 1538) [address]: Turnstile Attendant/Techni waylon ID = [id number] for Kennedy Burrell BLOOD [id number] 21:00:22 Test Item Value Reference Range Interpretation Comments CULTURE ([employer]) (test No growth in 5 days code = 1095) U/S, DUPLEX, [id number] 17:50:00Reason for exam:->main portal vein is mildly dilated on MRI. Would like to look at Hepatic Vein, Hepatic Artery and Portal Vein.[facility]LOLIBORIO : 1975 Sex: FFINAL REPORT U/S, ABDOMINAL, [...] Signed: Renetta Novoa Verified Date/Time: 12/27/2022 17:50:06 U/S, ABDOMINAL, [id number] 17:50:00Abdomen limited area? Add comment if clarification is needed.->Right upper quadrantReason for exam:->to check doppler flow to liver [facility] 1975 Sex: FFINAL [...] Renetta Novoa Verified Date/Time: 12/27/2022 17:50:06 POCT-GLUCOSE [id number] 16:51:44 Test Item Value Reference Range Interpretation Comments POC-GLUCOSE METER 153 mg/dL 70-110 H : TESTED A T [facility] 6720 (BEAKER) (test code = [place], 1538) [address]: Turnstile Attendant/Techni waylon ID = [id number] for Anayeli Herr CBC (HEMOGRAM ONLY)2022-12-27 15:05:28 [...] H (BEAKER) (test code = 413) CALCIUM, [id number] 14:46:31 Test Item Value Reference Range Interpretation Comments CALCIUM IONIZED (BEAKER) (test 1.02 mmol/L 1.12-1.27 L code = 698) PH, BLOOD (BEAKER) (test code = 7.48 1810) POCT-GLUCOSE [id number] 13:01:01 Test Item Value Reference Range Interpretation Comments POC-GLUCOSE METER 237 mg/dL 70-110 H : TESTED A T [facility] 6720 (BEAKER) (test code = [place], 1538) [address]: Turnstile Attendant/Techni waylon ID = [id number] for Anayeli Herr RAD, CHEST, 1 VIEW, NON [id number] 10:01:00Reason for exam:- >hypoxiaShould this be performed at the bedside?->Yes [facility] SHASTA : 1975 Sex: [...] contours. Additional findings: None. Signed: Zachariah Lopez Verified Date/Time: 12/27/2022 10:01:44 [id number] 08:39:51 Test Item Value Reference Range Interpretation Comments LIPASE (RHEA) (test code = 749) 93 U/L 8-78 H Turnstile Attendant ID - MARCOSpecimen slightly ictericPOCT-GLUCOSE [id number] 08:35:08 Test Item Value Reference Range Interpretation Comments POC-GLUCOSE METER 183 mg/dL 70-110 H : TESTED Bryan Becerril [facility] 6720 (RHEA) (test code = [place], 1538) [address]: Turnstile Attendant/Techni waylon ID = [id number] for Anayeli Herr MR, ABDOMEN, [id number] 07:57:00Please add liver protocol. Please add MRCP. Unlisted Reason for Exam - Click Yes and Enter Reason Below->Yes Unlisted Reason for Exam->Elevated aminotransferases. [facility]JOSELIBORIO : 1975 Sex: FFINAL REPORT TECHNIQUE: MRI [...] MDReport Verified Date/Time: 12/27/2022 07:57:21 Reading Location: [facility] Diagnostic Imaging Reading Room - [place] [address] POCT-GLUCOSE [id number] 06:16:58 Test Item Value Reference Range Interpretation Comments POC-GLUCOSE METER 190 mg/dL 70-110 H : [facility] (BEAKER) (test code [facility], = 1538) 58479: Turnstile Attendant/Techni waylon ID = [id number] for Laryr larry (contract)Sigrid (CELLAVISION MANUAL DIFF)2022-12-27 04:40:16 Test [...] CONCENTRATION Adequate (CELLAVISION)(BEAKER) (test code = 3438) Turnstile Attendant ID - Ceci Polo comments: Slide comments:CBC W/PLT COUNT & AUTO [id number] 04:40:14 Test Item Value Reference Range Interpretation [...] (BEAKER) (test code = 413) BASIC METABOLIC [id number] 04:28:10 Test Item Value Reference Range Interpretation [...] not appl icable for dialysis patien ts Turnstile Attendant ID - BSSpecimen slightly ictericLACTATE DEHYDROGENASE (LDH)2022-12-27 04:26:34 Test Item Value Reference Range Interpretation Comments LACTATE DEHYDROGENASE (BEAKER) (test 820 U/L 125-220 H code = 635) Turnstile Attendant ID - BSHEPATIC FUNCTION [id number] 04:26:33 Test Item Value Reference Range Interpretation [...] code = 58 U/L 6-55 H 347) Turnstile Attendant ID - BSSpecimen slightly kouambdAWAASDIBET4313-78-96 04:26:32 Test Item Value Reference Range Interpretation Comments PHOSPHORUS (BEAKER) (test code = 6.0 mg/dL 2.3-4.7 H 604) Turnstile Attendant ID - [id number] 04:26:31 Test Item Value Reference Range Interpretation Comments MAGNESIUM (BEAKER) (test code = 3.5 mg/dL 1.6-2.6 H 627) Turnstile Attendant ID - [id number] 04:25:09 Test Item Value Reference Range Interpretation Comments HAPTOGLOBIN (BEAKER) (test code = 86 mg/dL 14-258 366) Turnstile Attendant ID - QWUCDTSUUFWP5518-18-38 03:57:01 Test Item Value Reference Range Interpretation Comments FIBRINOGEN LEVEL (BEAKER) (test 180 mg/dl 225-434 L code = 658) [id number] 03:56:59 Test Item Value Reference Range Interpretation [...] 2.5-3.5 for patients with mechanical heart valves.RETICULOCYTE [id number] 03:56:41 Test Item Value Reference Range Interpretation Comments RETICULOCYTE COUNT PCT (BEAKER) (test 15.0 % 0.5-1.7 H code = 575) Turnstile Attendant ID - 6000POCT-GLUCOSE [id number] 00:17:23 Test Item Value Reference Range Interpretation Comments POC-GLUCOSE METER 218 mg/dL 70-110 H : [facility] 67[facility] (BEElliptic) (test code [facility], = 1538) 57304: Turnstile Attendant/Techni waylon ID = [id number] for SUGTRISHA WelchL Clostridium difficile GDH [id number] 22:10:38 Test Item Value Reference Range Interpretation Comments C. Difficle Toxin Negative Negative (test code = 7128317484) C. Difficile GDH Negative Negative No indicati on of Antigen (test code = Clostri dium 7590678256) difficile infection and n o colonization. Discontinue enteric isolati on and therapy. AREN (test code = Testing performed AREN) by [employer] Rapid Cassette Assay. For GDH, published sensitivity of the assay is 98.7% compared to cytotoxicity testing. For Toxin AB, published sensitivity is 87.8% and specificity 99.4% compared to cytotoxicity testing.Verificati on of kit performance was done by the [facility] Microbiology Lab prior to clinical use. Lab Interpretation Normal (test code = 21715-5) [facility] DI[facility]ICILE GDH [id number] 22:10:38 Test Item Value Reference Range Interpretation Comments CDT TOXIN (test code Negative Negative = 8393268345) CDT GDH ANTIGEN (test Negative Negative No ind ication of code = 5363636441) Clostridi um difficile infection and n o colonization. Discontinue ent renetta isolation and t herapy. Testing performed by [employer] Rapid Cassette Assay. For GDH, published sensitivity of the assay is 98.7% compared to cytotoxicity testing. For Toxin AB, published sensitivity is 87.8% and specificity 99.4% compared to cytotoxicity testing.Verification of kit performance was done by the [facility] MicrobiologyLab prior to clinical use.POCT-GLUCOSE [id number] 20:58:53 Test Item Value Reference Range Interpretation Comments POC-GLUCOSE METER 198 mg/dL 70-110 H : TESTED A T [facility] 6720 (BEAKER) (test code [facility], = 1538) 76860: Turnstile Attendant/Techni waylon ID = [id number] for Larry juarez (contract)Sigrid GI Pathogen Profile by PCR -ID [id number] 20:21:37 Test Item Value Reference Range Interpretation Comments CAMPYLOBACTER PCR (test Not detected Not detected code = 04684-9) PLESIOMONAS SHIGELLOIDES Not detected Not detected (PCR) (test code = 93117-8) SALMONELLA (PCR) (test Not detected Not detected code = 45090-6) YERSINIA ENTEROCOLITICA Not detected Not detected (PCR) (test code = 39550-4) VIBRIO CHOLERAE (PCR) Not detected Not detected (test code = 70105-5) ENTEROAGGREGATIVE E. Not detected Not detected COLI (EAEC) BY PCR (test code = 74455-7) ENTEROPATHOGENIC E. COLI Not detected Not detected (EPEC) BY PCR (test code = 74461-2) ENTEROTOXIGENIC E. COLI Not detected Not detected (ETEC) LT/ST BY PCR (test code = 43144-5) SHIGA-LIKE Not detected Not detected TOXIN-PRODUCING E. COLI (STEC) STX1/STX2 (test code = 08857-9) E. COLI O157 (PCR) (test code = 38262-0) SHIGELLA/ENTEROINVASIVE Not detected Not detected E. COLI (EIEC) BY PCR (test code = 35053-3) CRYPTOSPORIDIUM (PCR) Not detected Not detected (test code = 49190-0) CYCLOSPORA CAYETANENSIS Not detected Not detected (PCR) (test code = 09090-9) ENTAMOEBA HISTOLYTICA Not detected Not detected (PCR) (test code = 47006-9) GIARDIA LAMBLIA (PCR) Not detected Not detected (test code = 22210-5) ADENOVIRUS F 40/41 (PCR) Not detected Not detected (test code = 61853-7) ASTROVIRUS (PCR) (test Not detected Not detected code = 81223-0) NOROVIRUS GI/GII (PCR) Not detected Not detected (test code = 28546-2) ROTAVIRUS A (PCR) (test Not detected Not detected code = 88459-4) SAPOVIRUS (I, II, IV, V) Not detected Not detected BY PCR (test code = 15820-2) VIBRIO Not detected Not detected (PARAHAEMOLYTICUS, VULNIFICUS) (test code = 15734-4) AREN (test code = AREN) Other viruses, parasites and bacteria not targeted by this PCR panel cannot be excluded; therefore clinical correlation and follow up of serology, culture results, and other molecular studies is required. The results are not intended to be used as the sole means for clinical diagnosis or patient management decisions. This sample was tested at the [facility] Molecular Diagnostics Laboratory using the [employer] Gastrointestinal Panel. It is FDA cleared and has been verified and approved by the [facility] Molecular Diagnostics Laboratory for clinical use. This laboratory is CLIA-certified and [employer] (CAP)-accredited to perform high complexity testing. [facility] BY [id number] 20:21:37 Test Item Value Reference Range Interpretation Comments CAMPYLOBACTER (PCR) (test code = Not detected Not detected 20160330) PLESIOMONAS SHIGELLOIDES (PCR) Not detected Not detected (test code = 20160403) SALMONELLA (PCR) (test code = Not detected Not detected ) YERSINIA ENTEROCOLITICA (PCR) Not detected Not detected (test code = 0857425) VIBRIO CHOLERAE (PCR) (test code Not detected Not detected = 20160427) ENTEROAGGREGATIVE E. COLI (EAEC) Not detected Not detected BY PCR (test code = 9426876) ENTEROPATHOGENIC E. COLI (EPEC) Not detected Not detected BY PCR (test code = 2578449) ENTEROTOXIGENIC E. COLI (ETEC) Not detected Not detected LT/ST BY PCR (test code = 7319933) SHIGA-LIKE TOXIN-PRODUCING E. Not detected Not detected COLI (STEC) PCR (test code = 9395087) E. COLI O157 (PCR) (test code = 5162788) SHIGELLA/ENTEROINVASIVE E. COLI Not detected Not detected (EIEC) BY PCR (test code = 4666076) CRYPTOSPORIDIUM (PCR) (test code Not detected Not detected = 20160504) CYCLOSPORA CAYETANENSIS (PCR) Not detected Not detected (test code = 2669031) ENTAMOEBA HISTOLYTICA (PCR) Not detected Not detected (test code = 20160527) GIARDIA LAMBLIA (PCR) (test code Not detected Not detected = 20160528) ADENOVIRUS F 40/41 (PCR) (test Not detected Not detected code = 9550128) ASTROVIRUS (PCR) (test code = Not detected Not detected 20160530) NOROVIRUS GI/GII (PCR) (test Not detected Not detected code = 9412672) ROTAVIRUS A (PCR) (test code = Not detected Not detected 20160601) SAPOVIRUS (I, II, IV, V) BY PCR Not detected Not detected (test code = 3249160) VIBRIO (PARAHAEMOLYTICUS, Not detected Not detected VULNIFICUS) (test code = 2812446) Other viruses, parasites and bacteria not targeted by this PCR panel cannot be excluded; therefore clinical correlation and follow up of serology, culture results, and other molecular studies is required. The results are not intended to be used as the sole means for clinical diagnosis or patient management decisions. This sample was tested at the [facility] Molecular Diagnostics Laboratory using the [employer] Gastrointestinal Panel. It is FDA cleared and has been verified and approved by the [facility] Molecular Diagnostics Laboratory for clinical [...] H (BEAKER) (test code = 413) POCT-GLUCOSE [id number] 14:00:55 Test Item Value Reference Range Interpretation Comments POC-GLUCOSE METER 278 mg/dL 70-110 H : TESTED A T [facility] 6720 (BEAKER) (test code = [place], 1538) [address]: Turnstile Attendant/Techni waylon ID = [id number] for Anayeli Herr CBC (HEMOGRAM ONLY)2022-12-26 10:46:59 [...] H (BEAKER) (test code = 413) POCT-GLUCOSE [id number] 10:18:57 Test Item Value Reference Range Interpretation Comments POC-GLUCOSE METER 289 mg/dL 70-110 H : TESTED A T [facility] 6720 (BEAKER) (test code = [place] [place] [facility], 1538) [address]187: Turnstile Attendant/Techni waylon ID = [id number] for Anayeli Herr RAD, CHEST, 1 VIEW, NON [id number] 07:22:00Reason for exam:->intubated patientShould this be performed at the bedside?->Yes [facility] : 1975 Sex: FFINAL REPORT INDICATION: intubated patient COMPARISON: None TECHNIQUE: Single frontal view of the chest. FINDINGS: Lungs and pleura: Clear lungs. No effusion.Heart and mediastinum: Normal heart size. Unremarkable mediastinal contours.Osseous structures: No acute abnormality.Other: None. IMPRESSION: No acute intrathoracic abnormality. Signed: Krystyna Altamirano MDReport Verified Date /Time: 12/26/2022 07:22:08 POCT-GLUCOSE [id number] 06:45:44 Test Item Value Reference Range Interpretation Comments POC-GLUCOSE METER 244 mg/dL 70-110 H : TESTED A T [facility] 6720 (BEAKER) (test code = [place], 1538) [address]: Turnstile Attendant/Techni waylon ID = [id number] for Shelbi Dalton CBC W/PLT COUNT & AUTO [id number] 03:26:12 Test Item Value Reference Range Interpretation [...] CONCENTRATION Adequate (CELLAVISION)(BEAKER) (test code = 3438) Turnstile Attendant ID - [id number] ID - Ceci StephensRozinayadi comments: Slide comments:CBC W/PLT COUNT & AUTO [id number] 03:16:40 Test Item Value Reference Range Interpretation [...] (BEAKER) (test code = 413) BLOOD GAS, [id number] 03:01:58 Test Item Value Reference Range Interpretation [...] FIO2 (BEAKER) (test code = 1819) 28.0 [id number] 02:58:00 Test Item Value Reference Range Interpretation Comments HAPTOGLOBIN (BEAKER) (test code = 50 mg/dL 14-258 366) Turnstile Attendant ID - BSBASIC METABOLIC [id number] 02:55:35 Test Item Value Reference Range Interpretation [...] not appl icable for dialysis patien ts Turnstile Attendant ID - BSSpecimen moderately vmuttiwUHKVSEKLBW9834-04-20 02:54:58 Test Item Value Reference Range Interpretation Comments FIBRINOGEN LEVEL (BEAKER) (test 166 mg/dl 225-434 L code = 658) [id number] 02:54:41 Test Item Value Reference Range Interpretation [...] 950 U/L 125-220 H code = 635) Turnstile Attendant ID - BSHEPATIC FUNCTION [id number] 02:54:39 Test Item Value Reference Range Interpretation [...] code = 82 U/L 6-55 H 347) Turnstile Attendant ID - BSSpecimen moderately muluvgfVGPTTPRFRG4428-40-20 02:54:38 Test Item Value Reference Range Interpretation Comments PHOSPHORUS (BEAKER) (test code = 5.5 mg/dL 2.3-4.7 H 604) Turnstile Attendant ID - [id number] 02:54:37 Test Item Value Reference Range Interpretation Comments MAGNESIUM (BEAKER) (test code = 3.7 mg/dL 1.6-2.6 H 627) Turnstile Attendant ID - BSRETICULOCYTE [id number] 02:44:31 Test Item Value Reference Range Interpretation Comments RETICULOCYTE COUNT PCT (BEAKER) (test 17.0 % 0.5-1.7 H code = 575) Turnstile Attendant ID - [id number] ID - 6000POCT-GLUCOSE [id number] 01:12:26 Test Item Value Reference Range Interpretation Comments POC-GLUCOSE METER 285 mg/dL 70-110 H : TESTED A T [facility] 6720 (BEAKER) (test code = [facility], 1538) [address]: Turnstile Attendant/Techni waylon ID = [id number] for Mu queenie, Shelbi POCT-GLUCOSE [id number] 22:50:33 Test Item Value Reference Range Interpretation Comments POC-GLUCOSE METER 256 mg/dL 70-110 H : TESTED A T [facility] 6720 (BEAKER) (test code = [facility], 1538) 50119: Turnstile Attendant/Techni waylon ID = [id number] for Mu queeine, Shelbi Lactic Acid, [id number] 19:11:36 Test Item Value Reference Range Interpretation Comments Lactate, Art (test code = 1.9 mmol/L 0.5-2.2 2874) AREN (test code = AREN) Turnstile Attendant ID - MMSpecimen moderately icteric Lab Interpretation (test Normal code = 86444-9) [facility] CenterLACT[facility] ACID, [id number] 19:11:36 Test Item Value Reference Range Interpretation Comments LACTATE BLOOD ARTERIAL (2) 1.9 mmol/L 0.5-2.2 (BEAKER) (test code = 2874) Turnstile Attendant ID - MMSpecimen moderately ictericCBC (HEMOGRAM ONLY)2022-12-25 [...] CELLS (BEAKER) (test code = 413) POCT-GLUCOSE [id number] 16:59:48 Test Item Value Reference Range Interpretation Comments POC-GLUCOSE METER 233 mg/dL 70-110 H : TESTED A T [facility] 6720 (BEAKER) (test code = [place], 1538) [address]: Turnstile Attendant/Techni waylon ID = [id number] for Min Carlyn CBC (HEMOGRAM ONLY)2022-12-25 12:49:26 Test Item Value [...] H (BEAKER) (test code = 413) POCT-GLUCOSE [id number] 10:23:25 Test Item Value Reference Range Interpretation Comments POC-GLUCOSE METER 185 mg/dL 70-110 H : TESTED A T [facility] (test code = [place], 1538) [address]: Turnstile Attendant/Techni waylon ID = [id number] for Carlyn Copeland Arterial doppler legs [id number] 08:31:45Ejection FractionSLEH ECHO HEARTLAB MKCKESSON [facility], 1 VIEW, NON DEPT 2022-12-25 07:18:00Reason for exam:->intubated patientShould this be performed at the bedside?->Yes [facility] 1975 Sex: FFINAL [...] surgical changes. Additional findings: None. Signed: Krystyna Altamiranoeppurvi Verified Date/Time: 12/25/2022 07:18:16 BASIC METABOLIC [id number] 06:19:05 Test Item Value Reference Range Interpretation [...] not appl icable for dialysis patien ts Turnstile Attendant ID - BSSpecimen moderately [id number] 06:17:20 Test Item Value Reference Range Interpretation Comments MAGNESIUM (BEAKER) (test code = 2.9 mg/dL 1.6-2.6 H 627) Turnstile Attendant ID - [id number] 06:17:19 Test Item Value Reference Range Interpretation Comments PHOSPHORUS (BEAKER) (test code = 4.5 mg/dL 2.3-4.7 604) Turnstile Attendant ID - BSPOCT-GLUCOSE [id number] 05:34:33 Test Item Value Reference Range Interpretation Comments POC-GLUCOSE METER 224 mg/dL 70-110 H : TESTED A T [facility] 6720 (BEAKER) (test code = [place], 1538) [address]: Turnstile Attendant/Techni waylon ID = [id number] for Ra bhavesh Jacobo [id number] 03:57:27 Test Item Value Reference Range Interpretation [...] CONCENTRATION Adequate (CELLAVISION)(BEAKER) (test code = 3438) Turnstile Attendant ID - Ceci Polo comments: Slide comments:CBC W/PLT COUNT & AUTO [id number] 03:52:59 Test Item Value Reference Range Interpretation [...] 1233 U/L 125-220 H code = 635) Turnstile Attendant ID - BSHEPATIC FUNCTION [id number] 03:44:13 Test Item Value Reference Range Interpretation [...] code = 146 U/L 6-55 H 347) Turnstile Attendant ID - BSSpecimen moderately shbaksgHVTGZMGWUFY3340-24-97 03:41:12 Test Item Value Reference Range Interpretation Comments HAPTOGLOBIN (BEAKER) (test code = 32 mg/dL 14-258 366) Turnstile Attendant ID - BSVANCOMYCIN LEVEL, [id number] 03:34:13 Test Item Value Reference Range Interpretation Comments VANCOMYCIN RANDOM (BEAKER) (test 52.2 ug/mL code = 523) Reference Range: No NormalsOperator ID - MMPT/SXGE7427-12-77 03:29:35 Test Item Value Reference Range Interpretation [...] 2.5-3.5 for patients with mechanical heart valves.POCT-GLUCOSE [id number] 03:20:26 Test Item Value Reference Range Interpretation Comments POC-GLUCOSE METER 241 mg/dL 70-110 H : TESTED A T [facility] 6720 (BEAKER) (test code = [facility], 1538) [address]: Turnstile Attendant/Techni waylon ID = [id number] for Ra bhavesh Jacobo RETICULOCYTE [id number] 03:20:19 Test Item Value Reference Range Interpretation Comments RETICULOCYTE COUNT PCT (BEAKER) (test 15.3 % 0.5-1.7 H code = 575) Turnstile Attendant ID - 6000BLOOD GAS, [id number] 03:17:01 Test Item Value Reference Range Interpretation [...] (BEAKER) (test code = 1819) 32.0 POCT-GLUCOSE [id number] 23:47:35 Test Item Value Reference Range Interpretation Comments POC-GLUCOSE METER 287 mg/dL 70-110 H : TESTED A T [facility] 6720 (BEAKER) (test code = [facility], 1538) [address]: Turnstile Attendant/Techni waylon ID = [id number] for Ra bhavesh Jacobo POCT-GLUCOSE [id number] 21:21:51 Test Item Value Reference Range Interpretation Comments POC-GLUCOSE METER 353 mg/dL 70-110 H : TESTED A T [facility] 6720 (BEAKER) (test code = [facility], 1538) [address]: Turnstile Attendant/Techni waylon ID = [id number] for Ra bhavesh Jacobo BLOOD CULTURE IDENTIFICATION [id number] 20:54:54 Test Item Value Reference Interpretation Comments Range MCR-1 (BEAKER) (test Non Applicable Not detected Note: Antimicrobial code = 2563188797) resistanc e can occur via multi ple mechanisms. A N ot Detected result for antimicrobial resistance gene (s) does not indica te antimicrobial susceptibility. Subculturing is required for species identification and susceptibility testing of isolates. CTX-M (BEAKER) (test Non Applicable Not detected Note: Antimicrobial code = 5780209827) resistanc e can occur via multi ple mechanisms. A N ot Detected result for antimicrobial resistance gene (s) does not indica te antimicrobial susceptibility. Subculturing is required for species identification and susceptibility testing of isolates. IMP ([place]) (test code = Non Applicable Not Detected Note : Antimicrobial 6181743313) resistance can occur via multi ple mechanisms. A N ot Detected result for antimicrobial resistance gene (s) does not indica te antimicrobial susceptibility. Subculturing is required for species identification and susceptibility testing of isolates. KPC (BKR) (test code = Non Applicable Not detected Not e: Antimicrobial 4739045487) resistance can occur via multi ple mechanisms. A N ot Detected result for antimicrobial resistance gene (s) does not indica te antimicrobial susceptibility. Subculturing is required for species identification and susceptibility testing of isolates. NDM (BKR) (test code = Non Applicable Not Detected Not e: Antimicrobial 8518280493) resistance can occur via multi ple mechanisms. A N ot Detected result for antimicrobial resistance gene (s) does not indica te antimicrobial susceptibility. Subculturing is required for species identification and susceptibility testing of isolates. OXA-48-LIKE (BKR) Non Applicable Not Detected Note: An timicrobial (test code = resistance can 2069652155) occur via multi ple mechanisms. A N ot Detected result for antimicrobial resistance gene (s) does not indica te antimicrobial susceptibility. Subculturing is required for species identification and susceptibility testing of isolates. VIM (BKR) (test code = Non Applicable Not detected Not e: Antimicrobial 3434665514) resistance can occur via multi ple mechanisms. A N ot Detected result for antimicrobial resistance gene (s) does not indica te antimicrobial susceptibility. Subculturing is required for species identification and susceptibility testing of isolates. MEC A/C ([place]) (test Non Applicable Not detected Note: A ntimicrobial code = 8729830995) resistanc e can occur via multi ple mechanisms. A N ot Detected result for antimicrobial resistance gene (s) does not indica te antimicrobial susceptibility. Subculturing is required for species identification and susceptibility testing of isolates. MEC A/C AND MREJ Non Applicable Not Detected Note: Ant imicrobial (MRSA) [place] (test code = resis tance can 7498889396) occur via multi ple mechanisms. A N ot Detected result for antimicrobial resistance gene (s) does not indica te antimicrobial susceptibility. Subculturing is required for species identification and susceptibility testing of isolates. VAN A/B (VANCOMYCIN Non Applicable Not detected Note: Antimicrobial RESISTANCE) (test code resis tance can = 2637803071) occur via mult iple mechanisms. A N ot Detected result for antimicrobial resistance gene (s) does not indica te antimicrobial susceptibility. Subculturing is required for species identification and susceptibility testing of isolates. ENTEROCOCCUS FAECALIS Not detected Not detected (BKR) (test code = 0696688266) ENTEROCOCCUS FAECIUM Not detected Not detected (BKR) (test code = 3529475684) LISTERIA MONOCYTOGENES Not detected Not detected (test code = 20160628) STAPHYLOCOCCUS (test Not detected Not detected code = 7629966) STAPHYLOCOCCUS AUREUS Not detected Not detected (test code = 3937583) STAPHYLOCOCCUS Not detected Not detected EPIDERMIDIS (KY) (test code = 0787315312) STAPHYLOCOCCUS Not detected Not detected LUGDENENSIS (BKR) (test code = 3216848861) STREPTOCOCCUS (test Not detected Not detected code = 7048240) STREPTOCOCCUS Not detected Not detected AGALACTIAE (GROUP B) (test code = 6604213) STREPTOCOCCUS Not detected Not detected PNEUMONIAE (test code = 7267879) STREPTOCOCCUS PYOGENES Not detected Not detected (GROUP A) (test code = 4383337) ACINETOBACTER Not detected Not detected CALCOACETICUS-BAUMANNI I COMPLEX (BKR) (test code = 7712) BACTEROIDES FRAGILIS Not detected Not detected ([place]) (test code = 4507542613) ENTEROBACTERALES (test Not detected Not detected code = 2285567072) ENTEROBACTER CLOACOE Not detected Not detected COMPLEX (test code = 8479191) ESCHERICHIA COLI (test Not detected Not detected code = 1385334) KLEBSIELLA AEROGENES Not detected Not detected (BKR) (test code = 1082892118) KLEBSIELLA OXYTOCA Not detected Not detected (test code = 0285975) KLEBSIELLA PNEUMONIAE Not detected Not detected GROUP (test code = 0118006200) PROTEUS (test code = Not detected Not detected 6413315) SALMONELLA SPECIES Not detected Not detected ([place]) (test code = 0398849827) SERRATIA MARCESCENS Not detected Not detected (test code = 2039523) HAEMOPHILUS INFLUENZAE Not detected Not detected (test code = 3948971) NEISSERIA MENINGITIDIS Not detected Not detected (test code = 2448150) PSEUDOMONAS Not detected Not detected AERUGINOSA-BEAKER (test code = 7552943) STENOTROPHOMONAS Not detected Not detected MALTOPHILIA (BKR) (test code = 6362799806) NEGIN ALBICANS (test Not detected Not detected code = 8168199) NEGIN AURIS ([place]) Not detected Not detected (test code = 8934064393) NEGIN GLABRATA (test Not detected Not detected code = 0711332) NEGIN KRUSEI (test Not detected Not detected code = 7933768) NEGIN PARAPSILOSIS Not detected Not detected (test code = 1604930) NEGIN TROPICALIS Not detected Not detected (BKR) (test code = 9990873) CRYPTOCOCCUS Not detected Not detected NEOFORMANS/GATTII (test code = 0638646626) Other bacteria and resistance markers not targeted by this PCR panel cannot be excluded; therefore clinical correlation and follow up of serology, culture results, and other molecular studies is required. The results are not intended to be used as the sole means for clinical diagnosis or patient management decisions. This sample was tested at the [facility] Diagnostics Laboratory using the [employer] Blood Culture ID Panel. It is FDA cleared and has been verified and approved by the [facility] for clinical [...] H (BEAKER) (test code = 413) CT, [id number] 20:32:00Unlisted Reason for Exam - Click Yes and Enter Reason Below->NoProtocol Please Specify:->Standard ProtocolWill this procedure require oral contrast?->No [facility] SHASTA : 1975 Sex: FFINAL REPORT EXAM: CT [...] colitis. 2. Status post cholecystectomy. Signed: Yasmani Cunninghamort VerifiedDate/Time: 12/24/2022 20:32:11 -GLUCOSE [id number] 18:05:55 Test Item Value Reference Range Interpretation Comments POC-GLUCOSE METER 369 mg/dL 70-110 H : TESTED A T [facility] 6720 (BEAKER) (test code = [place], [address]38) [address]: Turnstile Attendant/Techni waylon ID = [id number] for Tricia Landers EBV VIRAL [id number] 13:55:42 Test Item Value Reference Range Interpretation Comments EBV VIRAL LOAD - Negative or below See_Comment Endoge nous NEGATIVE (BEAKER) the linear range inhibi tor (test code = 2559) of the assay discovere d upon QC (<500 IU /mL) investigation. Please recollec t and re-order.Th is is a corrected result. Previou s result was Nega tive or below the li near range of the as say (<500 IU /mL) o n 12/21/2022 at 16 23 CDT Soluble IL-2 [id number] 13:41:40 Test Item Value Reference Range Interpretation Comments Scan Result (test see scanned report See scanned report. code = 0284378) [facility] (HEMOGRAM ONLY)2022-12-24 12:15:28 Test Item Value Reference [...] code = 413) RAD, ABDOMEN/KUB, 1 VIEW [id number] 10:38:00Reason for exam:->eval ileus [facility] 1975 Sex: FFINAL REPORT CLINICAL HISTORY: eval ileus TECHNIQUE: Supine abdomen COMPARISON: 10/22/2022 IMPRESSION: New NGT in the gastric fundus. New left femoral line. Nonspecific bowel gas pattern. Free air and air-fluid levels are not definitively seen, but cannot be excluded on the supineview. Signed: Tarun Lopez MDReport Verified Date/Time: 12/24/2022 10:38:45 Reading Location: [address] Reading Room POCT-GLUCOSE [id number] 10:02:47 Test Item Value Reference Range Interpretation Comments POC-GLUCOSE METER 219 mg/dL 70-110 H : TESTED A T [facility] 6720 (BEAKER) (test code = [place], 1538) [address]: Turnstile Attendant/Techni waylon ID = [id number] for Tricia Landers CBC W/PLT COUNT & AUTO [id number] 07:11:38 Test Item Value Reference Range Interpretation [...] CONCENTRATION Decreased (CELLAVISION)(BEAKER) (test code = 3438) Turnstile Attendant ID - [id number] ID - namnguyenUser comments: Slide comments:RAD, CHEST, 1 VIEW, NON [id number] 06:47:00Reason for exam:->intubated patientShould this be performed at the bedside?->Yes [facility] : 1975 Sex: FFINAL REPORT CLINICAL HISTORY: intubated patient TECHNIQUE: 1 view of the chest. COMPARISON: 12/23/2022 IMPRESSION: ETT removal. NGT terminates in the stomach. Pulmonary vascular congestion and bilateral airspace opacities unchanged. No significant pleural fluid. No cardiomegaly. Signed: Tarun Lopez MDReport Verified Date/Time: 12/24/2022 06:47:02 POCT-GLUCOSE [id number] 05:36:01 Test Item Value Reference Range Interpretation Comments POC-GLUCOSE METER 137 mg/dL 70-110 H : TESTED A T [facility] 6720 (BEAKER) (test code = ROZ [place] [facility], 1538) [address]: Turnstile Attendant/Techni waylon ID = [id number] for Odalis Ra ospina LACTATE DEHYDROGENASE (LDH)2022-12-24 03:15:27 Test Item Value Reference Range Interpretation Comments LACTATE DEHYDROGENASE (BEAKER) (test 1453 U/L 125-220 H code = 635) Turnstile Attendant ID - MMBASIC METABOLIC [id number] 03:15:26 Test Item Value Reference Range Interpretation [...] not appl icable for dialysis patien ts Turnstile Attendant ID - MMSpecimen moderately ictericHEPATIC FUNCTION [id number] 03:15:26 Test Item Value Reference Range Interpretation [...] code = 243 U/L 6-55 H 347) Turnstile Attendant ID - MMSpecimen moderately [id number] 03:15:25 Test Item Value Reference Range Interpretation Comments MAGNESIUM (BEAKER) (test code = 2.1 mg/dL 1.6-2.6 627) Turnstile Attendant ID - [id number] 03:15:25 Test Item Value Reference Range Interpretation Comments PHOSPHORUS (BEAKER) (test code = 3.4 mg/dL 2.3-4.7 604) Turnstile Attendant ID - MMBLOOD GAS, [id number] 03:11:11 Test Item Value Reference Range Interpretation [...] (BEAKER) (test code = 1819) 40.0 CALCIUM, [id number] 03:11:05 Test Item Value Reference Range Interpretation Comments CALCIUM IONIZED (BEAKER) (test 1.08 mmol/L 1.12-1.27 L code = 698) PH, BLOOD (BEAKER) (test code = 7.52 1810) [id number] 03:08:43 Test Item Value Reference Range Interpretation Comments HAPTOGLOBIN (BEAKER) (test code = 8 mg/dL 14-258 L 366) Turnstile Attendant ID - BSRETICULOCYTE [id number] 03:02:26 Test Item Value Reference Range Interpretation Comments RETICULOCYTE COUNT PCT (BEAKER) (test 13.0 % 0.5-1.7 H code = 575) Turnstile Attendant ID - [id number] ID - [id number] 02:56:37 Test Item Value Reference Range Interpretation Comments FIBRINOGEN LEVEL (BEAKER) (test 207 mg/dl 225-434 L code = 658) [id number] 02:56:15 Test Item Value Reference Range Interpretation [...] 2.5-3.5 for patients with mechanical heart valves.POCT-GLUCOSE [id number] 00:23:51 Test Item Value Reference Range Interpretation Comments POC-GLUCOSE METER 182 mg/dL 70-110 H : TESTED A T [facility] 6720 (BEAKER) (test code = [place], 1538) [address]: Turnstile Attendant/Techni waylon ID = [id number] for Ra bhavesh Jacobo BASIC METABOLIC [id number] 23:17:38 Test Item Value Reference Range Interpretation [...] not appl icable for dialysis patien ts Turnstile Attendant ID - BSSpecimen moderately sejewajCXVJQCGWB7638-62-03 23:17:37 Test Item Value Reference Range Interpretation Comments MAGNESIUM (BEAKER) (test code = 2.2 mg/dL 1.6-2.6 627) Turnstile Attendant ID - [id number] 23:17:37 Test Item Value Reference Range Interpretation Comments PHOSPHORUS (BEAKER) (test code = 3.0 mg/dL 2.3-4.7 604) Turnstile Attendant ID - BSCALCIUM, [id number] 22:23:48 Test Item Value Reference Range Interpretation [...] H (BEAKER) (test code = 413) POCT-GLUCOSE [id number] 18:19:04 Test Item Value Reference Range Interpretation Comments POC-GLUCOSE METER 274 mg/dL 70-110 H : [facility]ED [facility] T [facility] 6720 (BEAKER) (test code = [place], 1538) [address]: Turnstile Attendant/Techni waylon ID = [id number] for Tricia Landers BASIC METABOLIC [id number] 13:10:01 Test Item Value Reference Range Interpretation [...] (test code = 697) EGFR (BEAKER) 26 Interpretatio n of eGFR (test code = mL/min/1.73 values Stage De scription 1092) sq m Result G1 Veronica l or high >=90 G2 Mildly decreased 60-89 G3a Mildl y to moderately 45-5 9 G3b Moderately to s everely 30-44 G4 Sever ly decreased 15-29 G5 Kidney failure <15Repo rted eGFR is based on the CKD-EPI 2021 equation t hat does not use a race coefficientEsti mated GFR is not as accur ate as Creatinine Katelyn lovett in predicting glom erular filtration rate . Estimated GFR is not appl icable for dialysis patien ts Turnstile Attendant ID - MARIOSpecimen moderately [id number] 12:21:36 Test Item Value Reference Range Interpretation Comments PHOSPHORUS (BEAKER) (test code = 3.4 mg/dL 2.3-4.7 604) Turnstile Attendant ID - [id number] 12:21:35 Test Item Value Reference Range Interpretation Comments MAGNESIUM (BEAKER) (test code = 2.3 mg/dL 1.6-2.6 627) Turnstile Attendant ID - MARIOCBC (HEMOGRAM ONLY)2022-12-23 11:54:36 Test Item Value Reference [...] H (BEAKER) (test code = 413) POCT-GLUCOSE [id number] 11:40:57 Test Item Value Reference Range Interpretation Comments POC-GLUCOSE METER 250 mg/dL 70-110 H : [facility] (BEAKER) (test code = [place], 1538) [address]: Turnstile Attendant/Techni waylon ID = [id number] for Tricia Landers CALCIUM, [id number] 11:33:41 Test Item Value Reference Range Interpretation Comments CALCIUM IONIZED (BEAKER) (test 1.12 mmol/L 1.12-1.27 code = 698) PH, BLOOD (BEAKER) (test code = 7.42 1810) RAD, CHEST, 1 VIEW, NON [id number] 09:39:00Reason for exam:->intubated ptShould this be performed at the bedside?->Yes [facility] : 1975 Sex: FFINAL REPORT CLINICAL HISTORY: intubated pt TECHNIQUE: 1 view of the chest. COMPARISON: 12/22/2022 IMPRESSION: Right central line removal. ETT terminates 3.5 cm above the wilfredo. NGT terminates in the stomach. Pulmonary vascular congestion and bilateral airspace opacities unchanged. Subpulmonic pleural effusions cannot be excluded. No cardiomegaly. Signed: Tarun Lopez MDReport Verified Date/Time: 12/23/2022 09:39:27 Reading Location: [address] Reading Room (CELLAVISION MANUAL DIFF)2022-12-23 06:25:13 [...] CONCENTRATION Decreased (CELLAVISION)(BEAKER) (test code = 3438) Turnstile Attendant ID - [id number] ID - MichAdrianokirill comments: Slide comments:CBC W/PLT COUNT & AUTO [id number] 06:25:04 Test Item Value Reference Range Interpretation [...] H (BEAKER) (test code = 413) POCT-GLUCOSE [id number] 05:47:13 Test Item Value Reference Range Interpretation Comments POC-GLUCOSE METER 227 mg/dL 70-110 H : TESTED A T [facility] 6720 (BEAKER) (test code = [place], 1538) [address]: Turnstile Attendant/Techni waylon ID = [id number] for Ra bhavesh Jacobo BASIC METABOLIC [id number] 04:35:12 Test Item Value Reference Range Interpretation [...] not appl icable for dialysis patien ts Turnstile Attendant ID - DBSpecimen moderately ictericLACTATE DEHYDROGENASE (LDH)2022-12-23 04:32:00 Test Item Value Reference Range Interpretation Comments LACTATE DEHYDROGENASE (BEAKER) (test 1408 U/L 125-220 H code = 635) Turnstile Attendant ID - [id number] 04:31:59 Test Item Value Reference Range Interpretation Comments PHOSPHORUS (BEAKER) (test code = 3.2 mg/dL 2.3-4.7 604) Turnstile Attendant ID - DBHEPATIC FUNCTION [id number] 04:31:59 Test Item Value Reference Range Interpretation [...] code = 275 U/L 6-55 H 347) Turnstile Attendant ID - DBSpecimen moderately [id number] 04:31:58 Test Item Value Reference Range Interpretation Comments MAGNESIUM (BEAKER) (test code = 2.3 mg/dL 1.6-2.6 627) Turnstile Attendant ID - [id number] 04:03:53 Test Item Value Reference Range Interpretation Comments HAPTOGLOBIN (BEAKER) (test code = 13 mg/dL 14-258 L 366) Turnstile Attendant ID - DBPT/[id number] 03:50:08 Test Item Value Reference Range Interpretation [...] is 2.5-3.5 for patients with mechanical heart valves.[id number] 03:50:02 Test Item Value Reference Range Interpretation Comments FIBRINOGEN LEVEL (BEAKER) (test 302 mg/dl 225-434 code = 658) RETICULOCYTE [id number] 03:48:32 Test Item Value Reference Range Interpretation Comments RETICULOCYTE COUNT PCT (BEAKER) (test 10.0 % 0.5-1.7 H code = 575) Turnstile Attendant ID - [id number] ID - 6000BLOOD GAS, [id number] 03:44:35 Test Item Value Reference Range Interpretation [...] (BEAKER) (test code = 1819) 30.0 CALCIUM, [id number] 03:43:03 Test Item Value Reference Range Interpretation Comments CALCIUM IONIZED (BEAKER) (test 1.13 mmol/L 1.12-1.27 code = 698) PH, BLOOD (BEAKER) (test code = 7.46 1810) POCT-GLUCOSE [id number] 03:31:21 Test Item Value Reference Range Interpretation Comments POC-GLUCOSE METER 210 mg/dL 70-110 H : TESTED A T [facility] 6720 (BEAKER) (test code = [facility], 1538) [address]: Turnstile Attendant/Techni waylon ID = [id number] for Ra bhavesh Jacobo POCT-GLUCOSE [id number] 01:22:25 Test Item Value Reference Range Interpretation Comments POC-GLUCOSE METER 236 mg/dL 70-110 H : TESTED A T [facility] 6720 (BEAKER) (test code = [facility], 1538) [address]: Turnstile Attendant/Techni waylon ID = [id number] for Ra bhavesh Jacobo POCT-GLUCOSE [id number] 22:04:21 Test Item Value Reference Range Interpretation Comments POC-GLUCOSE METER 258 mg/dL 70-110 H : TESTED A T [facility] 6720 (BEAKER) (test code = [facility], 1538) [address]: Turnstile Attendant/Techni waylon ID = [id number] for Ra bhavesh Jacobo BASIC METABOLIC [id number] 20:33:41 Test Item Value Reference Range Interpretation [...] not appl icable for dialysis patien ts Turnstile Attendant ID - ADMINSpecimen moderately [id number] 20:29:51 Test Item Value Reference Range Interpretation Comments MAGNESIUM (BEAKER) (test code = 2.4 mg/dL 1.6-2.6 627) Turnstile Attendant ID - [id number] 20:29:51 Test Item Value Reference Range Interpretation Comments PHOSPHORUS (BEAKER) (test code = 3.6 mg/dL 2.3-4.7 604) Turnstile Attendant ID - ADMINCALCIUM, [id number] 20:27:40 Test Item Value Reference Range Interpretation [...] 0-0 H (test code = 413) POCT-GLUCOSE [id number] 17:38:23 Test Item Value Reference Range Interpretation Comments POC-GLUCOSE METER 279 mg/dL 70-110 H : TESTED A T [facility] [facility] (BEAKER) (test code = [place], 1538) [address]: Turnstile Attendant/Techni waylon ID = [id number] for Ed wards ([facility]), Nicol noonan BLOOD [id number] 16:00:38 Test Item Value Reference Range Interpretation Comments CULTURE (BEAKER) (test No growth in 5 days code = 1095) BASIC METABOLIC [id number] 13:22:19 Test Item Value Reference Range Interpretation [...] not appl icable for dialysis patien ts Turnstile Attendant ID - ADMINSpecimen moderately [id number] 13:21:02 Test Item Value Reference Range Interpretation Comments MAGNESIUM (BEAKER) (test code = 2.5 mg/dL 1.6-2.6 627) Turnstile Attendant ID - [id number] 13:21:02 Test Item Value Reference Range Interpretation Comments PHOSPHORUS (BEAKER) (test code = 3.1 mg/dL 2.3-4.7 604) Turnstile Attendant ID - ADMINCBC (HEMOGRAM ONLY)2022-12-22 13:13:25 Test [...] 0-0 H (test code = 413) CALCIUM, [id number] 12:51:31 Test Item Value Reference Range Interpretation Comments CALCIUM IONIZED (BEAKER) (test 1.14 mmol/L 1.12-1.27 code = 698) PH, BLOOD (BEAKER) (test code = 7.43 1810) ANTI-NUCLEAR ANTIBODY (COLTON)2022-12-22 12:43:32 Test Item Value Reference Range Interpretation Comments ANTI-NUCLEAR ANTIBODY (COLTON) (BEAKER) Negative Negative (test code = 418) Test performed by IFA method.CBC W/PLT COUNT & AUTO [id number] 11:28:03 Test Item Value Reference Range Interpretation [...] WBC 0-0 H (test code = 413) [id number] 10:49:34 Test Item Value Reference Range Interpretation Comments FERRITIN (BEAKER) (test code = 8700.64 ng/mL 5.00-275.00 H 361) Turnstile Attendant ID - ADMINOperator ID - ADMINBASIC METABOLIC [id number] 10:20:40 Test Item Value Reference Range Interpretation [...] not appl icable for dialysis patien ts Turnstile Attendant ID - ADMINSpecimen moderately icteric(CELLAVISION MANUAL DIFF) [...] CONCENTRATION Decreased (CELLAVISION)(BEAKER) (test code = 3438) Turnstile Attendant ID - [id number] ID - Kevin Dato-onUser comments: Slide comments: [id number] 07:13:25 Test Item Value Reference Range Interpretation Comments AMMONIA (BEAKER) (test code = 348) 38 mol/L 18-72 Turnstile Attendant ID - ADMINBASIC METABOLIC [id number] 06:29:39 Test Item Value Reference Range Interpretation [...] not appl icable for dialysis patien ts Turnstile Attendant ID - NEELAM WOperator ID - ADMINSpecimen moderately ictericRAD, CHEST, 1 VIEW, NON [id number] 06:13:00Reason for exam:->follow upShould this be performed at the bedside?->Yes [facility] SHASTA : 1975 Sex: FFINAL REPORT CLINICAL HISTORY: follow up TECHNIQUE: 1 view of the chest. COMPARISON: 12/21/2022 IMPRESSION: The supporting lines and tubes are similar appearing. Pulmonary vascularcongestion is again seen. Right infrahilar consolidation/atelectasis is unchanged. Subpulmonic pleural effusions cannot be excluded. The cardiomediastinal silhouette is magnified by technique. Signed: Tarun Dunnort Verified Date/Time: 12/22/2022 06:13:15 [id number] 05:55:43 Test Item Value Reference Range Interpretation Comments HAPTOGLOBIN (BEAKER) (test code = < mg/dL 14-258 L 366) Turnstile Attendant ID - ADMINVANCOMYCIN LEVEL, [id number] 05:44:16 Test Item Value Reference Range Interpretation Comments VANCOMYCIN RANDOM (BEAKER) (test 19.2 ug/mL code = 523) Reference Range: No NormalsOperator ID - ADMINPOCT-GLUCOSE [id number] 05:37:04 Test Item Value Reference Range Interpretation Comments POC-GLUCOSE METER 156 mg/dL 70-110 H : [facility] 67[facility] (BEAKER) (test code = ROZ [place] [facility], 1538) [address]: Turnstile Attendant/Techni waylon ID = [id number] for SUDARSHAN ALLEN HEPATIC FUNCTION [id number] 05:07:16 Test Item Value Reference Range Interpretation [...] code = 405 U/L 6-55 H 347) Turnstile Attendant ID - NEELAM WSpecimen moderately ictericLACTATE DEHYDROGENASE (LDH) 2022-12-22 05:07:16 Test Item Value Reference Range Interpretation Comments LACTATE DEHYDROGENASE (BEAKER) (test 1547 U/L 125-220 H code = 635) Turnstile Attendant ID - NEELAM [id number] 05:07:15 Test Item Value Reference Range Interpretation Comments PHOSPHORUS (BEAKER) (test code = 2.9 mg/dL 2.3-4.7 604) Turnstile Attendant ID - NEELAM [id number] 05:07:14 Test Item Value Reference Range Interpretation Comments MAGNESIUM (BEAKER) (test code = 2.2 mg/dL 1.6-2.6 627) Turnstile Attendant ID - NEELAM WRETICULOCYTE [id number] 04:55:54 Test Item Value Reference Range Interpretation Comments RETICULOCYTE COUNT PCT (BEAKER) (test 6.6 % 0.5-1.7 H code = 575) Turnstile Attendant ID - 6000Operator ID - [id number] 04:32:59 Test Item Value Reference Range Interpretation Comments FIBRINOGEN LEVEL (BEAKER) (test 340 mg/dl 225-434 code = 658) [id number] 04:32:59 Test Item Value Reference Range Interpretation [...] for patients with mechanical heart valves.BLOOD GAS, [id number] 04:11:49 Test Item Value Reference Range Interpretation [...] (BEAKER) (test code = 1819) 30.0 CALCIUM, [id number] 04:11:07 Test Item Value Reference Range Interpretation Comments CALCIUM IONIZED (BEAKER) (test 1.11 mmol/L 1.12-1.27 L code = 698) PH, BLOOD (BEAKER) (test code = 7.44 1810) BLOOD [id number] 01:00:29 Test Item Value Reference Range Interpretation Comments CULTURE (BEAKER) (test No growth in 5 days code = 1095) BASIC METABOLIC [id number] 00:48:35 Test Item Value Reference Range Interpretation [...] not appl icable for dialysis patien ts Turnstile Attendant ID - ADMINSpecimen moderately ictericPOCT-GLUCOSE [id number] 23:52:46 Test Item Value Reference Range Interpretation Comments POC-GLUCOSE METER 186 mg/dL 70-110 H : [facility] (BEAKER[facility] (test code [place], = 1538) [address]: Turnstile Attendant/Techni waylon ID = [id number] for ELAINE MORRIS HEPATIC FUNCTION [id number] 20:46:11 Test Item Value Reference Range Interpretation [...] code = 462 U/L 6-55 H 347) Turnstile Attendant ID - dbSpecimen moderately [id number] 20:46:10 Test Item Value Reference Range Interpretation Comments PHOSPHORUS (BEAKER) (test code = 3.2 mg/dL 2.3-4.7 604) Turnstile Attendant ID - dbBASIC METABOLIC [id number] 20:46:10 Test Item Value Reference Range Interpretation [...] not appl icable for dialysis patien ts Turnstile Attendant ID - dbSpecimen moderately [id number] 20:46:09 Test Item Value Reference Range Interpretation Comments MAGNESIUM (BEAKER) (test code = 2.2 mg/dL 1.6-2.6 627) Turnstile Attendant ID - dbCALCIUM, [id number] 20:35:12 Test Item Value Reference Range Interpretation Comments CALCIUM IONIZED (BEAKER) (test 1.08 mmol/L 1.12-1.27 L code = 698) PH, BLOOD (BEAKER) (test code = 7.45 1810) [id number] 20:35:05 Test Item Value Reference Range Interpretation [...] H (test code = 413) BASIC METABOLIC [id number] 18:13:58 Test Item Value Reference Range Interpretation [...] De scription 1092) sq m Result G1 Vreonica l or high >=90 G2 Mildly decreased [...] not appl icable for dialysis patien ts Turnstile Attendant ID - MARCOSpecimen moderately ictericPOCT-GLUCOSE [id number] 18:09:27 Test Item Value Reference Range Interpretation Comments POC-GLUCOSE METER 209 mg/dL 70-110 H : TESTED A T [facility] 6720 (BEAKER) (test code = [place], 1538) [address]: Turnstile Attendant/Techni waylon ID = [id number] for Ed wards ([facility]), Nicol noonan BLOOD GAS, [id number] 16:22:59 Test Item Value Reference Range Interpretation [...] FIO2 (BEAKER) (test code = 1819) 30.0 [id number] 15:01:27 Test Item Value Reference Range Interpretation Comments AMMONIA (BEAKER) (test code = 348) 47 mol/L 18-72 Turnstile Attendant ID - MARCOOperator ID - [id number] 13:02:35 Test Item Value Reference Range Interpretation Comments PHOSPHORUS (BEAKER) (test code = 3.2 mg/dL 2.3-4.7 604) Turnstile Attendant ID - ADMINBASIC METABOLIC [id number] 13:02:35 Test Item Value Reference Range Interpretation [...] not appl icable for dialysis patien ts Turnstile Attendant ID - ADMINSpecimen markedly [id number] 13:02:34 Test Item Value Reference Range Interpretation Comments MAGNESIUM (BEAKER) (test code = 2.1 mg/dL 1.6-2.6 627) Turnstile Attendant ID - ADMINCBC (HEMOGRAM ONLY)2022-12-21 12:37:39 Test [...] 0-0 H (test code = 413) CALCIUM, [id number] 12:20:00 Test Item Value Reference Range Interpretation Comments CALCIUM IONIZED (BEAKER) (test 1.07 mmol/L 1.12-1.27 L code = 698) PH, BLOOD (BEAKER) (test code = 7.45 1810) DOUBLE-STRANDED DNA (DSDNA) [id number] 12:18:23 Test Item Value Reference Range Interpretation Comments ANTI-DNA DS (BEAKER) (test code = Negative Negative 1055) RAD, CHEST, 1 VIEW, NON [id number] 11:24:00Reason for exam:->resp failureShould this be performed at the bedside?->Yes [facility] : 1975 Sex: FFINAL REPORT CLINICAL HISTORY: resp failure TECHNIQUE: 1 view of the chest. COMPARISON: 12/20/2022 IMPRESSION: The supporting lines and tubes are similar appearing. Pulmonary vascular congestion is again seen. Right infrahilar consolidation/atelectasis is unchanged. Subpulmonic pleural effusions cannot be excluded. The cardiomediastinal silhouette is magnified by technique. Signed: Tarun Lopez MDReport Verified Date/Time: 12/21/2022 11:24:15 Reading Location: [address] Reading Room BASIC METABOLIC [id number] 09:24:11 Test Item Value Reference Range Interpretation [...] De scription 1092) sq m Result G1 Veornica l or high >=90 G2 Mildly decreased [...] not appl icable for dialysis patien ts Turnstile Attendant ID - ADMINSpecimen markedly icteric(CELLAVISION MANUAL DIFF)2022-12-21 [...] CONCENTRATION Decreased (CELLAVISION)(BEAKER) (test code = 3438) Turnstile Attendant ID - 6000Operator ID - Stella comments: Slide comments: Turnstile Attendant ID - Stella comments: Slide comments:CBC W/PLT [...] WBC 0-0 H (test code = 413) [id number] 04:36:51 Test Item Value Reference Range Interpretation Comments HAPTOGLOBIN (BEAKER) (test code = < mg/dL 14-258 L 366) Turnstile Attendant ID - [id number] 04:34:17 Test Item Value Reference Range Interpretation Comments FIBRINOGEN LEVEL (BEAKER) (test 390 mg/dl 225-434 code = 658) [id number] 04:25:15 Test Item Value Reference Range Interpretation [...] 2.5-3.5 for patients with mechanical heart valves.RETICULOCYTE [id number] 04:22:20 Test Item Value Reference Range Interpretation Comments RETICULOCYTE COUNT PCT (BEAKER) (test 4.6 % 0.5-1.7 H code = 575) Turnstile Attendant ID - 6000Operator ID - 6000LACTATE DEHYDROGENASE (LDH)2022-12-21 04:21:37 Test Item Value Reference Range Interpretation Comments LACTATE DEHYDROGENASE (BEAKER) (test 1766 U/L 125-220 H code = 635) Turnstile Attendant ID - ADMINHEPATIC FUNCTION [id number] 04:21:36 Test Item Value Reference Range Interpretation [...] code = 527 U/L 6-55 H 347) Turnstile Attendant ID - ADMINSpecimen markedly [id number] 04:21:35 Test Item Value Reference Range Interpretation Comments PHOSPHORUS (BEAKER) (test code = 2.5 mg/dL 2.3-4.7 604) Turnstile Attendant ID - ADMINBASIC METABOLIC [id number] 04:21:35 Test Item Value Reference Range Interpretation [...] not appl icable for dialysis patien ts Turnstile Attendant ID - ADMINSpecimen markedly [id number] 04:21:34 Test Item Value Reference Range Interpretation Comments MAGNESIUM (BEAKER) (test code = 2.3 mg/dL 1.6-2.6 627) Turnstile Attendant ID - ADMINBLOOD GAS, [id number] 04:13:16 Test Item Value Reference Range Interpretation [...] (BEAKER) (test code = 1819) 30.0 CALCIUM, [id number] 04:13:10 Test Item Value Reference Range Interpretation Comments CALCIUM IONIZED (BEAKER) (test 1.11 mmol/L 1.12-1.27 L code = 698) PH, BLOOD (BEAKER) (test code = 7.42 1810) POCT-GLUCOSE [id number] 00:14:48 Test Item Value Reference Range Interpretation Comments POC-GLUCOSE METER 173 mg/dL 70-110 H : TESTED A T [facility] 6720 (BEAKER) (test code = ROZ [place] [facility], 1538) [address]: Turnstile Attendant/Techni waylon ID = [id number] for SUDARSHAN ALLEN BLOOD GAS, [id number] 00:09:43 Test Item Value Reference Range Interpretation [...] (BEAKER) (test code = 1819) 30.0 POCT-GLUCOSE [id number] 22:03:54 Test Item Value Reference Range Interpretation Comments POC-GLUCOSE METER 170 mg/dL 70-110 H : TESTED A T [facility] 6720 (BEAKER) (test code = [place], 1538) [address]: Turnstile Attendant/Techni waylon ID = [id number] for SUDARSHAN ALLEN CBC (HEMOGRAM ONLY)2022-12-20 21:31:41 [...] H (test code = 413) HEPATIC FUNCTION [id number] 21:05:07 Test Item Value Reference Range Interpretation [...] code = 594 U/L 6-55 H 347) Turnstile Attendant ID - ADMINSpecimen markedly [id number] 21:05:06 Test Item Value Reference Range Interpretation Comments PHOSPHORUS (BEAKER) (test code = 2.6 mg/dL 2.3-4.7 604) Turnstile Attendant ID - ADMINBASIC METABOLIC [id number] 21:05:06 Test Item Value Reference Range Interpretation [...] not appl icable for dialysis patien ts Turnstile Attendant ID - ADMINSpecimen markedly [id number] 21:05:05 Test Item Value Reference Range Interpretation Comments MAGNESIUM (BEAKER) (test code = 2.2 mg/dL 1.6-2.6 627) Turnstile Attendant ID - ADMINCBC (HEMOGRAM ONLY)2022-12-20 20:53:12 Test [...] 0-0 H (test code = 413) CALCIUM, [id number] 20:37:33 Test Item Value Reference Range Interpretation Comments CALCIUM IONIZED (BEAKER) (test 1.07 mmol/L 1.12-1.27 L code = 698) PH, BLOOD (BEAKER) (test code = 7.50 1810) BLOOD GAS, [id number] 20:37:27 Test Item Value Reference Range Interpretation [...] (test code = 1819) 30.0 BLOOD GAS, [id number] 17:43:05 Test Item Value Reference Range Interpretation [...] (test code = 1819) 30.0 BASIC METABOLIC [id number] 16:50:01 Test Item Value Reference Range Interpretation [...] not appl icable for dialysis patien ts Turnstile Attendant ID - ADMINSpecimen markedly ictericHepatitis B PCR, quantitative 2022-12-20 15:05:53 Test Item Value Reference Range Interpretation Comments HBV PCR, Quantitative HBV DNA not HBV DNA not (test code = 36092-0) detected detected Lab Interpretation (test Normal code = 34082-8) [facility] [id number] 15:05:53 Test Item Value Reference Range Interpretation Comments HBV RESULT COMPONENT HBV DNA not detected HBV DNA not detected (BEAKER) (test code = 2701) Hepatitis C PCR, [id number] 13:49:28 Test Item Value Reference Range Interpretation Comments HCV PCR, Quantitative HCV RNA not HCV RNA not (test code = 52144-9) detected detected Lab Interpretation (test Normal code = 76875-8) [facility], [id number] 13:49:28 Test Item Value Reference Range Interpretation Comments HCV RESULT COMPONENT HCV RNA not detected HCV RNA not detected (BEAKER) (test code = 2699) [id number] 13:00:08 Test Item Value Reference Range Interpretation Comments PHOSPHORUS (BEAKER) (test code = 2.3 mg/dL 2.3-4.7 604) Turnstile Attendant ID - ADMINBASIC METABOLIC [id number] 13:00:08 Test Item Value Reference Range Interpretation [...] not appl icable for dialysis patien ts Turnstile Attendant ID - ADMINSpecimen markedly [id number] 13:00:07 Test Item Value Reference Range Interpretation Comments MAGNESIUM (BEAKER) (test code = 2.1 mg/dL 1.6-2.6 627) Turnstile Attendant ID - ADMINCBC (HEMOGRAM ONLY)2022-12-20 11:52:44 Test [...] H (test code = 413) BLOOD GAS, [id number] 11:47:53 Test Item Value Reference Range Interpretation [...] (BEAKER) (test code = 1819) 30.0 CALCIUM, [id number] 11:47:52 Test Item Value Reference Range Interpretation Comments CALCIUM IONIZED (BEAKER) (test 1.10 mmol/L 1.12-1.27 L code = 698) PH, BLOOD (BEAKER) (test code = 7.39 1810) FACTOR 5 ACTIVITY (BLEEDING RISK)2022-12-20 10:26:03 Test Item Value Reference Range Interpretation Comments FACTOR V ACTIVITY (BEAKER) (test code 64.0 % 60.0-150.0 = 665) FACTOR 8 [id number] 09:55:08 Test Item Value Reference Range Interpretation Comments FACTOR VIII ACTIVITY (BEAKER) (test 273.0 % 45.0-150.0 H code = 663) FACTOR 10 [id number] 09:55:08 Test Item Value Reference Range Interpretation Comments FACTOR X ACTIVITY (BEAKER) (test code 29.0 % 70.0-120.0 L = 662) BASIC METABOLIC [id number] 08:47:31 Test Item Value Reference Range Interpretation [...] not appl icable for dialysis patien ts Turnstile Attendant ID - AAHAMIDSpecimen markedly ictericPOCT-GLUCOSE [id number] 07:51:26 Test Item Value Reference Range Interpretation Comments POC-GLUCOSE METER 174 mg/dL 70-110 H : TESTED A T [facility] 6720 (BEAKER) (test code [facility], = 1538) [address]: Turnstile Attendant/Techni waylon ID = [id number] for Evelia andrew (contract), Melissa valeria BLOOD GAS, [id number] 07:46:26 Test Item Value Reference Range Interpretation [...] (test code = 1819) 30.0 CMV PCR, [id number] 07:25:55 Test Item Value Reference Range Interpretation Comments CMV VIRAL LOAD - Negative or below See_Comment [Auto mated message] NEGATIVE (BEAKER) the linear range The sy stem which (test code = of the assay generated this 2558) (<300 IU/mL) result transmit tomy reference range [...] CONCENTRATION Decreased (CELLAVISION)(BEAKER) (test code = 3438) Turnstile Attendant ID - 6000Operator ID - Carisa Jordan comments: Slide comments: CBC W/PLT COUNT & AUTO [id number] 06:53:52 Test Item Value Reference Range Interpretation [...] = 413) RAD, CHEST, 1 VIEW, NON [id number] 05:33:00Reason for exam:->resp failureShould this be performed at the bedside?->Yes [facility] : 1975 Sex: FFINAL REPORT CLINICAL INDICATION: resp failure Comparison: 12/19/2022 The cardiomediastinal contours are stable. The lung volumes remain low. Central pulmonary vascular congestion and bilateral parenchymal opacities are unchanged. There is no pneumothorax. Support lines are stable. Signed: Araceli Macario MDReport Verified Date/Time: 12/20/2022 05:33:36 HEPATIC FUNCTION [id number] 04:29:04 Test Item Value Reference Range Interpretation [...] code = 824 U/L 6-55 H 347) Turnstile Attendant ID - NEIL GSpecimen markedly ictericLACTATE DEHYDROGENASE (LDH) 2022-12-20 04:28:57 Test Item Value Reference Range Interpretation Comments LACTATE DEHYDROGENASE (BEAKER) (test 2337 U/L 125-220 H code = 635) Turnstile Attendant ID - NEIL GOperator ID - NEIL GBASIC METABOLIC [id number] 04:28:03 Test Item Value Reference Range Interpretation [...] not appl icable for dialysis patien ts Turnstile Attendant ID - NEIL GSpecimen markedly [id number] 04:28:02 Test Item Value Reference Range Interpretation Comments MAGNESIUM (BEAKER) (test code = 2.0 mg/dL 1.6-2.6 627) Turnstile Attendant ID - NEIL [id number] 04:28:02 Test Item Value Reference Range Interpretation Comments PHOSPHORUS (BEAKER) (test code = 2.1 mg/dL 2.3-4.7 L 604) Turnstile Attendant ID - NEIL [id number] 04:04:19 Test Item Value Reference Range Interpretation Comments HAPTOGLOBIN (BEAKER) (test code = < mg/dL 14-258 L 366) Turnstile Attendant ID - AEEWXHXULMWH0981-03-35 03:59:32 Test Item Value Reference Range Interpretation Comments FIBRINOGEN LEVEL (BEAKER) (test 516 mg/dl 225-434 H code = 658) [id number] 03:59:26 Test Item Value Reference Range Interpretation [...] 2.5-3.5 for patients with mechanical heart valves.RETICULOCYTE [id number] 03:47:36 Test Item Value Reference Range Interpretation Comments RETICULOCYTE COUNT PCT (BEAKER) (test 4.0 % 0.5-1.7 H code = 575) Turnstile Attendant ID - 6000POCT-GLUCOSE [id number] 03:45:40 Test Item Value Reference Range Interpretation Comments POC-GLUCOSE METER 168 mg/dL 70-110 H : TESTED A T [facility] 6720 (BEAKER) (test code = [place], 1538) [address]: Turnstile Attendant/Techni waylon ID = [id number] for SUDARSHAN ALLEN BLOOD GAS, [id number] 03:40:15 Test Item Value Reference Range Interpretation [...] (BEAKER) (test code = 1819) 30.0 CALCIUM, [id number] 03:40:05 Test Item Value Reference Range Interpretation Comments CALCIUM IONIZED (BEAKER) (test 1.12 mmol/L 1.12-1.27 code = 698) PH, BLOOD (BEAKER) (test code = 7.39 1810) BASIC METABOLIC [id number] 01:23:08 Test Item Value Reference Range Interpretation [...] not appl icable for dialysis patien ts Turnstile Attendant ID - NEIL GSpecimen markedly ictericBLOOD GAS, [id number] 00:38:21 Test Item Value Reference Range Interpretation [...] (BEAKER) (test code = 1819) 30.0 POCT-GLUCOSE [id number] 00:09:17 Test Item Value Reference Range Interpretation Comments POC-GLUCOSE METER 153 mg/dL 70-110 H : TESTED A T [facility] 6720 (BEAKER) (test code = [place], 1538) [address]: Turnstile Attendant/Techni waylon ID = [id number] for SUDARSHAN ALLEN HEPATIC FUNCTION [id number] 21:17:08 Test Item Value Reference Range Interpretation [...] code = 884 U/L 6-55 H 347) Turnstile Attendant ID - ADMINOperator ID - ADMINOperator ID - ADMINSpecimen markedly [id number] 21:12:22 Test Item Value Reference Range Interpretation Comments PHOSPHORUS (BEAKER) (test code = 1.8 mg/dL 2.3-4.7 L 604) Turnstile Attendant ID - ADMINBASIC METABOLIC [id number] 21:12:22 Test Item Value Reference Range Interpretation [...] not appl icable for dialysis patien ts Turnstile Attendant ID - ADMINSpecimen markedly [id number] 21:12:21 Test Item Value Reference Range Interpretation Comments MAGNESIUM (BEAKER) (test code = 2.3 mg/dL 1.6-2.6 627) Turnstile Attendant ID - ADMINCBC (HEMOGRAM ONLY)2022-12-19 20:40:50 Test [...] CELLS (BEAKER) (test code = 413) POCT-GLUCOSE [id number] 20:20:32 Test Item Value Reference Range Interpretation Comments POC-GLUCOSE METER 225 mg/dL 70-110 H : TESTED A T [facility] 6720 (BEAKER) (test code = [place], 1538) [address]: Turnstile Attendant/Techni waylon ID = [id number] for SUDARSHAN ALLEN CALCIUM, [id number] 20:18:56 Test Item Value Reference Range Interpretation Comments CALCIUM IONIZED (BEAKER) (test 1.11 mmol/L 1.12-1.27 L code = 698) PH, BLOOD (BEAKER) (test code = 7.40 1810) BLOOD GAS, [id number] 20:18:50 Test Item Value Reference Range Interpretation [...] (test code = 1819) 30.0 BASIC METABOLIC [id number] 17:20:40 Test Item Value Reference Range Interpretation [...] (test code = 697) EGFR (BEAKER) 83 Interpretatio n of eGFR (test code = [...] not appl icable for dialysis patien ts Turnstile Attendant ID - NEIL GOperator ID - NEIL GSpecimen markedly ictericPOCT-GLUCOSE [id number] 16:24:22 Test Item Value Reference Range Interpretation Comments POC-GLUCOSE METER 246 mg/dL 70-110 H : TESTED A T [facility] 6720 (BEAKER) (test code [facility], = 1538) [address]: Turnstile Attendant/Techni waylon ID = [id number] for Evelia lorrie (contract), [facility] valeria BLOOD GAS, [id number] 16:22:14 Test Item Value Reference Range Interpretation [...] = 1819) 100.0 HIV-1 Antigen with HIV-1/2 [id number] 15:36:06 Test Item Value Reference Range Interpretation Comments HIV-1 Antigen with HIV Nonreactive Nonreactive 1&2 Antibody (test code = 92664-8) AREN (test code = AREN) Turnstile Attendant ID - ADMIN Lab Interpretation (test Normal code = 33097-1) [facility]2 [id number] 15:36:06 Test Item Value Reference Range Interpretation Comments HIV-1 ANTIGEN WITH HIV 1\\T\\2 Nonreactive Nonreactive ANTIBODY (2) (BEAKER) (test code = 2586) Turnstile Attendant ID - [id number] 12:54:48 Test Item Value Reference Range Interpretation Comments PHOSPHORUS (BEAKER) (test code = 2.6 mg/dL 2.3-4.7 604) Turnstile Attendant ID - NEIL GBASIC METABOLIC [id number] 12:54:48 Test Item Value Reference Range Interpretation [...] not appl icable for dialysis patien ts Turnstile Attendant ID - NEIL GSpecimen markedly [id number] 12:54:47 Test Item Value Reference Range Interpretation Comments MAGNESIUM (BEAKER) (test code = 2.2 mg/dL 1.6-2.6 627) Turnstile Attendant ID - NEIL GCBC (HEMOGRAM ONLY)2022-12-19 12:43:40 [...] 0-0 H (test code = 413) POCT-GLUCOSE [id number] 12:20:07 Test Item Value Reference Range Interpretation Comments POC-GLUCOSE METER 206 mg/dL 70-110 H : TESTED A T [facility] 6720 (BEAKER) (test code [facility], = 1538) [address]: Turnstile Attendant/Techni waylon ID = [id number] for Evelia andrew (contract), Melissa valeria BLOOD GAS, [id number] 12:15:16 Test Item Value Reference Range Interpretation [...] FIO2 (BEAKER) (test code = 1819) 40.0 [id number] 12:13:01 Test Item Value Reference Range Interpretation Comments AMMONIA (BEAKER) (test code = 348) 44 mol/L 18-72 Turnstile Attendant ID - NEIL GOperator ID - NEIL GCALCIUM, [id number] 12:05:38 Test Item Value Reference Range Interpretation Comments CALCIUM IONIZED (BEAKER) (test 1.13 mmol/L 1.12-1.27 code = 698) PH, BLOOD (BEAKER) (test code = 7.37 1810) RAD, CHEST, 1 VIEW, NON [id number] 10:50:00Reason for exam:->resp failureShould this be performed at the bedside?->Yes [facility] SHASTA : 1975 Sex: FFINAL REPORT Chest one view: HISTORY: Respiratory failure Compared to 12/18/2022. The endotracheal tube has been pulled back and projects approximately 4 cm from the wilfredo. The remaining support apparatus appears unchanged in position. There is patchy right basilar atelectasis/consolidation. No pleural effusion is noted. Cardiac size is unchanged. Signed: Phillip Cruz[place] Verified Date/Time: 12/19/2022 10:50:17 BASIC METABOLIC [id number] 08:49:17 Test Item Value Reference Range Interpretation [...] not appl icable for dialysis patien ts Turnstile Attendant ID - NEIL GSpecimen markedly ictericBLOOD GAS, [id number] 08:28:39 Test Item Value Reference Range Interpretation [...] (BEAKER) (test code = 1819) 50.0 POCT-GLUCOSE [id number] 08:21:19 Test Item Value Reference Range Interpretation Comments POC-GLUCOSE METER 210 mg/dL 70-110 H : TESTED A T [facility] 6720 (BEAKER) (test code [facility], = 1538) [address]: Turnstile Attendant/Techni waylon ID = [id number] for Evelia andrew (contract), Melissa valeria HEPATITIS B CORE ANTIBODY, [id number] 04:38:30 Test Item Value Reference Range Interpretation Comments HEPATITIS B CORE TOTAL ANTIBODY Reactive Nonreactive A (BEAKER) (test code = 497) Turnstile Attendant ID - ADMINOperator ID - ADMINOperator ID [...] with cold agglutinin.CBC W/PLT COUNT & AUTO [id number] 03:37:34 Test Item Value Reference Range Interpretation [...] (test code = 413) HEPATITIS A ANTIBODY, [id number] 03:24:51 Test Item Value Reference Range Interpretation Comments HEPATITIS A IGG ANTIBODY (BEAKER) Reactive Nonreactive A (test code = 2797) Turnstile Attendant ID - ADMINHEPATITIS B SURFACE [id number] 03:23:33 Test Item Value Reference Range Interpretation Comments HEPATITIS B SURFACE ANTIBODY 467.8 mIU/mL <8.0 H (BEAKER) (test code = 647) Turnstile Attendant ID - ADMINRETICULOCYTE [id number] 03:17:35 Test Item Value Reference Range Interpretation Comments RETICULOCYTE COUNT PCT (BEAKER) (test 4.2 % 0.5-1.7 H code = 575) Turnstile Attendant ID - [id number] 03:10:15 Test Item Value Reference Range Interpretation Comments HAPTOGLOBIN (BEAKER) (test code = < mg/dL 14-258 L 366) Turnstile Attendant ID - ADMINHEPATIC FUNCTION [id number] 03:10:09 Test Item Value Reference Range Interpretation [...] code = 1195 U/L 6-55 H 347) Turnstile Attendant ID - NEIL GSpecimen markedly ictericSpecimen slightly lipemicLACTATE DEHYDROGENASE (LDH)2022-12-19 03:09:46 Test Item Value Reference Range Interpretation Comments LACTATE DEHYDROGENASE (BEAKER) (test 7180 U/L 125-220 H code = 635) Turnstile Attendant ID - NEIL GOperator ID - NEIL GBASIC METABOLIC [id number] 03:05:52 Test Item Value Reference Range Interpretation [...] not appl icable for dialysis patien ts Turnstile Attendant ID - NEIL GSpecimen markedly [id number] 03:05:51 Test Item Value Reference Range Interpretation Comments MAGNESIUM (BEAKER) (test code = 2.2 mg/dL 1.6-2.6 627) Turnstile Attendant ID - NEIL [id number] 03:05:51 Test Item Value Reference Range Interpretation Comments PHOSPHORUS (BEAKER) (test code = 3.6 mg/dL 2.3-4.7 604) Turnstile Attendant ID - NEIL DUVALL, TIBC, % SAT. (WITHOUT FERRITIN)2022-12-19 03:02:08 Test Item Value Reference Range Interpretation Comments IRON (BEAKER) (test code = 547) 204.0 ug/dL 40.0-160.0 H TOTAL IRON BINDING CAPACITY 168 ug/dL 250-450 L (BEAKER) (test code = 769) IRON % SATURATION (2) (BEAKER) 121 % 20-55 H (test code = 2590) Turnstile Attendant ID - ADMINVANCOMYCIN LEVEL, [id number] 02:59:49 Test Item Value Reference Range Interpretation Comments VANCOMYCIN TROUGH (BEAKER) (test 9.0 ug/mL 10.0-20.0 L code = 522) Turnstile Attendant ID - ADMINPT/[id number] 02:48:49 Test Item Value Reference Range Interpretation [...] is 2.5-3.5 for patients with mechanical heart valves.[id number] 02:48:25 Test Item Value Reference Range Interpretation Comments FIBRINOGEN LEVEL (BEAKER) (test 535 mg/dl 225-434 H code = 658) BLOOD GAS, [id number] 02:47:00 Test Item Value Reference Range Interpretation [...] (BEAKER) (test code = 1819) 100.0 CALCIUM, [id number] 02:47:00 Test Item Value Reference Range Interpretation Comments CALCIUM IONIZED (BEAKER) (test 1.08 mmol/L 1.12-1.27 L code = 698) PH, BLOOD (BEAKER) (test code = 7.40 1810) POCT-GLUCOSE [id number] 02:46:42 Test Item Value Reference Range Interpretation Comments POC-GLUCOSE METER 189 mg/dL 70-110 H : TESTED A T [facility] 6720 (BEAKER) (test code = [place], 1538) [address]: Turnstile Attendant/Techni waylon ID = [id number] for SUDARSHAN ALLEN BASIC METABOLIC [id number] 01:03:55 Test Item Value Reference Range Interpretation [...] not appl icable for dialysis patien ts Turnstile Attendant ID - NEIL GSpecimen markedly ictericPOCT-GLUCOSE [id number] 00:22:04 Test Item Value Reference Range Interpretation Comments POC-GLUCOSE METER 269 mg/dL 70-110 H : TESTED A T [facility] 6720 (BEAKER) (test code = [facility], 153) [address]: Turnstile Attendant/Techni waylon ID = [id number] for SUDARSHAN ALLEN Prepare [id number] 23:54:00 Test Item Value Reference Range Interpretation Comments Unit ABO (test code = A Pos 7920996) UNIT NUMBER (test code = [id number] 934-0) Status (test code = 0581571) [facility] Product (test code CRYOPRECIPITATE = 2263) PRODUCT CODE (test code = Q9193O49 933-2) [facility] [id number] 23:54:00 Test Item Value Reference Range Interpretation Comments Unit ABO (test code = 7198402) A Pos UNIT NUMBER (test code = [id number] 934-0) Status (test code = 4221669) [facility] Blood Bank Product (test code FFP = 2263) PRODUCT CODE (test code = B0858R77 933-2) [facility] [id number] 22:16:50 Test Item Value Reference Range Interpretation Comments POC-GLUCOSE METER 203 mg/dL 70-110 H : TESTED A T [facility] 6720 (BEAKER) (test code = [facility] Yadi [facility], 1538) [address]: Turnstile Attendant/Techni waylon ID = [id number] for SUDARSHAN ALLEN HEPATIC FUNCTION [id number] 21:32:28 Test Item Value Reference Range Interpretation [...] code = 1208 U/L 6-55 H 347) Turnstile Attendant ID - ADMINSpecimen markedly ictericSpecimen slightly lipemicMAGNESIUM 2022-12-18 21:29:35 Test Item Value Reference Range Interpretation Comments MAGNESIUM (BEAKER) (test code = 2.2 mg/dL 1.6-2.6 627) Turnstile Attendant ID - [id number] 21:29:35 Test Item Value Reference Range Interpretation Comments PHOSPHORUS (BEAKER) (test code = 3.5 mg/dL 2.3-4.7 604) Turnstile Attendant ID - ADMINLACTIC ACID, [id number] 20:42:12 Test Item Value Reference Range Interpretation Comments LACTATE BLOOD ARTERIAL (2) 1.7 mmol/L 0.5-2.2 (BEAKER) (test code = 2874) Turnstile Attendant ID - ADMINSpecimen markedly ictericSpecimen slightly lipemicCBC [...] 0-0 H (test code = 413) CALCIUM, [id number] 20:12:17 Test Item Value Reference Range Interpretation Comments CALCIUM IONIZED (BEAKER) (test 1.11 mmol/L 1.12-1.27 L code = 698) PH, BLOOD (BEAKER) (test code = 7.38 1810) BLOOD GAS, [id number] 20:12:17 Test Item Value Reference Range Interpretation [...] (BEAKER) (test code = 1819) 60.0 ACETAMINOPHEN [id number] 17:01:53 Test Item Value Reference Range Interpretation Comments ACETAMINOPHEN LEVEL (BEAKER) (test < ug/mL 10.0-30.0 L code = 344) Therapeutic Range: 10.0-30.0 g/mLToxic Levels: >200.0 g/mLOperator ID - MM LACTIC ACID, [id number] 16:58:14 Test Item Value Reference Range Interpretation Comments LACTATE BLOOD ARTERIAL (2) 2.8 mmol/L 0.5-2.2 H (BEAKER) (test code = 2874) Turnstile Attendant ID - MMSpecimen markedly ictericSpecimen slightly lipemicBASIC METABOLIC [id number] 16:56:06 Test Item Value Reference Range Interpretation [...] not appl icable for dialysis patien ts Turnstile Attendant ID - MMSpecimen markedly ictericBLOOD GAS, [id number] 16:24:05 Test Item Value Reference Range Interpretation [...] 1819) 60.0 RAD, CHEST, 1 VIEW, NON [id number] 15:57:00Reason for exam:->Status-post intubationShould this be performed at the bedside?->Yes [facility] : 1975 Sex: FFINAL [...] telephone at 12/18/2022 3:45 PM. Signed: Rambo Yip [facility] Verified Date/Time: 12/18/2022 15:57:34 CBC (HEMOGRAM ONLY)2022-12-18 [...] H (test code = 413) LACTIC ACID, [id number] 13:20:23 Test Item Value Reference Range Interpretation Comments LACTATE BLOOD ARTERIAL (2) 4.7 mmol/L 0.5-2.2 HH (BEAKER) (test code = 2874) Turnstile Attendant ID - ADMINSpecimen markedly ictericSpecimen slightly lipemicAMMONIA 2022-12-18 13:18:44 Test Item Value Reference Range Interpretation Comments AMMONIA (BEAKER) (test code = 348) 123 mol/L 18-72 H Turnstile Attendant ID - MMOperator ID - MMIMMUNOGLOBULIN G (IGG)2022-12-18 13:12:39 Test Item Value Reference Range Interpretation Comments IMMUNOGLOBULIN G (IGG) (BEAKER) 1648 mg/dL 540-1822 (test code = 427) Turnstile Attendant ID - [id number] 13:06:44 Test Item Value Reference Range Interpretation Comments PHOSPHORUS (BEAKER) (test code = 3.7 mg/dL 2.3-4.7 604) Turnstile Attendant ID - ADMINBASIC METABOLIC [id number] 13:06:44 Test Item Value Reference Range Interpretation [...] not appl icable for dialysis patien ts Turnstile Attendant ID - ADMINSpecimen markedly [id number] 13:06:43 Test Item Value Reference Range Interpretation Comments MAGNESIUM (BEAKER) (test code = 2.3 mg/dL 1.6-2.6 627) Turnstile Attendant ID - ADMINCALCIUM, [id number] 12:20:18 Test Item Value Reference Range Interpretation Comments CALCIUM IONIZED (BEAKER) (test 1.04 mmol/L 1.12-1.27 L code = 698) PH, BLOOD (BEAKER) (test code = 7.43 1810) BLOOD GAS, [id number] 12:20:18 Test Item Value Reference Range Interpretation [...] FIO2 (BEAKER) (test code = 1819) 40.0 [id number] 12:04:06 Test Item Value Reference Range Interpretation Comments HAPTOGLOBIN (BEAKER) (test code = < mg/dL 14-258 L 366) Turnstile Attendant ID - ADMINHEPATITIS PANEL, [id number] 11:11:25 Test Item Value Reference Range Interpretation Comments HEPATITIS A IGM ANTIBODY (BEAKER) Nonreactive Nonreactive (test code = 498) HEPATITIS B CORE IGM ANTIBODY Nonreactive Nonreactive (BEAKER) (test code = 645) HEPATITIS C ANTIBODY (BEAKER) Nonreactive Nonreactive (test code = 367) HEPATITIS B SURFACE ANTIGEN (2) Nonreactive Nonreactive (BEAKER) (test code = 2585) Turnstile Attendant ID - ADMINRAD, CHEST, 1 VIEW, NON [id number] 10:55:00Reason for exam:->resp distressShould this be performed at the bedside?->Yes [facility] : 1975 Sex: FFINAL REPORT EXAMINATION: RAD, [...] pneumothorax. Other findings remain unchanged. Signed: Rambo Yip MDReport Verified Date/Time: 12/18/2022 10:55:35 (CELLAVISION MANUAL DIFF)2022-12-18 [...] CONCENTRATION Decreased (CELLAVISION)(BEAKER) (test code = 3438) Turnstile Attendant ID - [id number] ID - Santa OverholtUser comments: Slide comments:CBC W/PLT COUNT & AUTO [id number] 10:11:57 Test Item Value Reference Range Interpretation [...] (BEAKER) (test code = 413) BASIC METABOLIC [id number] 08:49:20 Test Item Value Reference Range Interpretation [...] not appl icable for dialysis patien ts Turnstile Attendant ID - MMSpecimen markedly ictericLACTIC ACID, [id number] 08:46:04 Test Item Value Reference Range Interpretation Comments LACTATE BLOOD ARTERIAL (2) 3.0 mmol/L 0.5-2.2 H (BEAKER) (test code = 2874) Turnstile Attendant ID - MMSpecimen markedly ictericSpecimen slightly lipemicBLOOD GAS, [id number] 08:10:37 Test Item Value Reference Range Interpretation [...] (BEAKER) (test code = 1819) 50.0 POCT-GLUCOSE [id number] 06:33:14 Test Item Value Reference Range Interpretation Comments POC-GLUCOSE METER 145 mg/dL 70-110 H : Notified RN/MD: (BEAKER) (test code = TESTED AT [facility] 6521 8343) [facility], [address]: Turnstile Attendant/Techni waylon ID = [id number] for KAMILA LIANG SUDARSHAN COMPREHENSIVE METABOLIC [id number] 05:34:47 Test Item Value Reference Range Interpretation [...] not appl icable for dialysis patien ts Turnstile Attendant ID - MMSpecimen slightly lipemicSpecimen markedly ictericLACTATE DEHYDROGENASE (LDH)2022-12-18 05:34:36 Test Item Value Reference Range Interpretation Comments LACTATE DEHYDROGENASE (BEAKER) (test 9175 U/L 125-220 H code = 635) Turnstile Attendant ID - MMOperator ID - [id number] 05:20:52 Test Item Value Reference Range Interpretation Comments PHOSPHORUS (BEAKER) (test code = 3.1 mg/dL 2.3-4.7 604) Turnstile Attendant ID - [id number] 05:20:51 Test Item Value Reference Range Interpretation Comments MAGNESIUM (BEAKER) (test code = 2.3 mg/dL 1.6-2.6 627) Turnstile Attendant ID - MMPOCT-GLUCOSE [id number] 04:43:04 Test Item Value Reference Range Interpretation Comments POC-GLUCOSE METER 153 mg/dL 70-110 H : TESTED A T [facility] 6720 (BEAKER) (test code = [place], 1538) [address]: Turnstile Attendant/Techni waylon ID = [id number] for SUDARSHAN ALLEN LACTIC ACID, [id number] 04:24:14 Test Item Value Reference Range Interpretation Comments LACTATE BLOOD ARTERIAL (2) 3.4 mmol/L 0.5-2.2 H (BEAKER) (test code = 2874) Turnstile Attendant ID - MMSpecimen moderately ictericSpecimen slightly lipemic1:1 MIXING STUDY, [id number] 04:22:50 Test Item Value Reference Range Interpretation Comments PROTIME (BEAKER) (test code = 21.7 seconds 11.9-14.2 H 759) PARTIAL THROMBOPLASTIN TIME 33.9 seconds 22.5-36.0 (BEAKER) (test code = 760) PT 1/1 MIX (BEAKER) (test code = 15.3 SECS 11.7-14.7 H 1595) PTT 1/1 MIX (BEAKER) (test code 46.5 SECS 22.5-36.0 H = 1596) [id number] 04:21:06 Test Item Value Reference Range Interpretation [...] is 2.5-3.5 for patients with mechanical heart valves.[id number] 04:20:50 Test Item Value Reference Range Interpretation Comments FIBRINOGEN LEVEL (BEAKER) (test 387 mg/dl 225-434 code = 658) RETICULOCYTE [id number] 04:00:36 Test Item Value Reference Range Interpretation Comments RETICULOCYTE COUNT PCT (BEAKER) (test 4.8 % 0.5-1.7 H code = 575) Turnstile Attendant ID - [id number] ID - 6000BLOOD GAS, [id number] 03:58:48 Test Item Value Reference Range Interpretation [...] (BEAKER) (test code = 1819) 70.0 CALCIUM, [id number] 03:58:42 Test Item Value Reference Range Interpretation Comments CALCIUM IONIZED (BEAKER) (test 1.12 mmol/L 1.12-1.27 code = 698) PH, BLOOD (BEAKER) (test code = 7.41 1810) POCT-GLUCOSE [id number] 01:25:39 Test Item Value Reference Range Interpretation Comments POC-GLUCOSE METER 171 mg/dL 70-110 H : TESTED A T [facility] 6720 (BEAKER) (test code = [place] [place] [facility], 1538) [address]: Turnstile Attendant/Techni waylon ID = [id number] for SUDARSHAN ALLEN LACTIC ACID, [id number] 00:11:06 Test Item Value Reference Range Interpretation Comments LACTATE BLOOD ARTERIAL (2) 5.0 mmol/L 0.5-2.2 HH (BEAKER) (test code = 2874) Turnstile Attendant ID - ADMINSpecimen markedly ictericSpecimen slightly lipemicBASIC METABOLIC [id number] 00:06:42 Test Item Value Reference Range Interpretation [...] not appl icable for dialysis patien ts Turnstile Attendant ID - ADMINSpecimen markedly ictericBLOOD GAS, [id number] 23:38:48 Test Item Value Reference Range Interpretation [...] (BEAKER) (test code = 1819) 80.0 POCT-GLUCOSE [id number] 23:38:16 Test Item Value Reference Range Interpretation Comments POC-GLUCOSE METER 161 mg/dL 70-110 H : TESTED A T [facility] 6720 (BEAKER) (test code = [place], 1538) [address]: Turnstile Attendant/Techni waylon ID = [id number] for OD SUDARSHAN TAVERA HEPATIC FUNCTION [id number] 21:44:06 Test Item Value Reference Range Interpretation [...] code = 1485 U/L 6-55 H 347) Turnstile Attendant ID - ADMINOperator ID - ADMINSpecimen markedly [...] (BEAKER) (test code = 413) BASIC METABOLIC [id number] 20:55:45 Test Item Value Reference Range Interpretation [...] (test code = 697) EGFR (BEAKER) 48 Interpretati on of eGFR (test code = [...] not appl icable for dialysis patien ts Turnstile Attendant ID - ADMINSpecimen markedly ictericLACTIC ACID, [id number] 20:42:59 Test Item Value Reference Range Interpretation Comments LACTATE BLOOD ARTERIAL (2) 6.9 mmol/L 0.5-2.2 HH (BEAKER) (test code = 2874) Turnstile Attendant ID - ADMINSpecimen moderately ictericSpecimen slightly lipemicMAGNESIUM 2022-12-17 20:34:58 Test Item Value Reference Range Interpretation Comments MAGNESIUM (BEAKER) (test code = 2.5 mg/dL 1.6-2.6 627) Turnstile Attendant ID - [id number] 20:34:58 Test Item Value Reference Range Interpretation Comments PHOSPHORUS (BEAKER) (test code = 3.5 mg/dL 2.3-4.7 604) Turnstile Attendant ID - ADMINCALCIUM, [id number] 20:16:00 Test Item Value Reference Range Interpretation Comments CALCIUM IONIZED (BEAKER) (test 1.05 mmol/L 1.12-1.27 L code = 698) PH, BLOOD (BEAKER) (test code = 7.43 1810) BLOOD GAS, [id number] 20:15:43 Test Item Value Reference Range Interpretation [...] (BEAKER) (test code = 1819) 50.0 POCT-GLUCOSE [id number] 20:09:10 Test Item Value Reference Range Interpretation Comments POC-GLUCOSE METER 142 mg/dL 70-110 H : [facility] 6720 (BEAKER) (test code [facility], = 1538) [address]: Turnstile Attendant/Techni waylon ID = [id number] for SUGU , SHEENAMOL [id number] 19:23:57 Test Item Value Reference Range Interpretation Comments TRIGLYCERIDES (BEAKER) (test code = 317 mg/dL 540) TRIGLYCERIDE REFERENCE RANGELow Risk <150Borderline Risk 150-199High Risk 200-499Very High Risk >=500Operator ID - ADMINSpecimen moderately ictericSpecimen slightly lipemicU/S, RENAL, [id number] 18:35:00Reason for exam:->akiShould this be performed at the bedside?->Yes [facility] : 1975 Sex: FFINAL REPORT TECHNIQUE: Grayscale [...] Colt Thomas MDReport Verified Date/Time: 12/17/2022 18:35:00 [id number] 17:42:58 Test Item Value Reference Range Interpretation Comments FERRITIN (BEAKER) (test code = 361) > ng/mL 5.00-275.00 H Turnstile Attendant ID - BSOperator ID - BSLACTIC ACID, [id number] 16:55:50 Test Item Value Reference Range Interpretation Comments LACTATE BLOOD ARTERIAL (2) 10.7 mmol/L 0.5-2.2 HH (BEAKER) (test code = 2874) Turnstile Attendant ID - BSSpecimen moderately ictericSpecimen slightly lipemicBASIC METABOLIC [id number] 16:51:41 Test Item Value Reference Range Interpretation [...] not appl icable for dialysis patien ts Turnstile Attendant ID - BSSpecimen moderately ictericIRON, TIBC, % SAT. (WITHOUT FERRITIN) 2022-12-17 16:49:01 Test Item Value Reference Range Interpretation Comments IRON (BEAKER) (test code = 547) 239.0 ug/dL 40.0-160.0 H TOTAL IRON BINDING CAPACITY 191 ug/dL 250-450 L (BEAKER) (test code = 769) IRON % SATURATION (2) (BEAKER) 125 % 20-55 H (test code = 2590) Turnstile Attendant ID - BSBLOOD GAS, [id number] 16:24:42 Test Item Value Reference Range Interpretation [...] = 413) PERIPHERAL BLOOD SMEAR - HOLD [id number] 13:57:34 Test Item Value Reference Range Interpretation Comments PERIPHERAL SMEAR SAVE (BEAKER) (test saved code = 1815) PERIPHERAL BLOOD SMEAR - PATHOLOGIST [id number] 13:54:29 Test Item Value Reference Range Interpretation Comments PERIPHERAL SMR REVIEW Leukocytosis with left (BEAKER) (test code = shift, and less than 1% 2640) blasts. Macrocytic anemia with anisocytosis and polychromasia. Few nucleated red blood cells. Decreased platelets, no significant clumping/satellitism seen. [id number] Maritza Mcnamaraueira (BEAKER) (test code = [place]ks 5424) COMPLEMENT COMPONENT [id number] 12:46:34 Test Item Value Reference Range Interpretation Comments C4 COMPLEMENT (BEAKER) (test code = 5 mg/dL 15-57 L 394) Turnstile Attendant ID - ADMINCOMPLEMENT COMPONENT [id number] 12:46:34 Test Item Value Reference Range Interpretation Comments C3 COMPLEMENT (BEAKER) (test code = 43 mg/dL 82-193 L 393) Turnstile Attendant ID - ADMINBASIC METABOLIC [id number] 12:45:58 Test Item Value Reference Range Interpretation [...] not appl icable for dialysis patien ts Turnstile Attendant ID - AAHAMIDSpecimen moderately [id number] 12:45:57 Test Item Value Reference Range Interpretation Comments MAGNESIUM (BEAKER) 3.1 mg/dL 1.6-2.6 H Specimen slightly (test code = 627) hemolyzed Turnstile Attendant ID - [id number] 12:45:57 Test Item Value Reference Range Interpretation Comments PHOSPHORUS (BEAKER) 4.4 mg/dL 2.3-4.7 Specimen slightly (test code = 604) hemolyzed Turnstile Attendant ID - AAHAMIDLACTIC ACID, [id number] 12:42:09 Test Item Value Reference Range Interpretation Comments LACTATE BLOOD ARTERIAL > mmol/L 0.5-2.2 HH Speci men slightly (2) (BEAKER) (test hemolyzed code = 2874) Turnstile Attendant ID - AAHAMIDSpecimen moderately ictericSpecimen slightly lipemicBLOOD GAS, [id number] 12:21:46 Test Item Value Reference Range Interpretation [...] (BEAKER) (test code = 1819) 21.0 CALCIUM, [id number] 12:21:46 Test Item Value Reference Range Interpretation Comments CALCIUM IONIZED (BEAKER) (test 1.06 mmol/L 1.12-1.27 L code = 698) PH, BLOOD (BEAKER) (test code = 7.39 1810) 2D Echo W/Doppler(CW/PW/Color)2022-12-17 11:07:13Ejection FractionSLE ECHO HEARTLAB MKCKESSON [facility] METABOLIC PANEL 2022-12-17 10:27:00 Test Item Value [...] not appl icable for dialysis patien ts Turnstile Attendant ID - NEIL GSpecimen markedly ictericRespiratory Panel [id number] 09:54:15 Test Item Value Reference Range Interpretation Comments Human Metapneumovirus Not detected Not detected, (test code = 63034-1) Equivocal Rhinovirus (test code = Not detected Not detected, 11070-5) Equivocal INFLUENZA A (NO Not detected Not detected, SUBTYPE) (test code = Equivocal 35052-1) Influenza A subtype H1 (test code = 13905-0) Influenza A Subtype H3 (test code = 00867-2) Influenza A Subtype H1-2009 (test code = 30035-8) Influenza B (test code Not detected Not detected, = 51230-4) Equivocal Respiratory Syncytial Not detected Not detected, Virus (test code = Equivocal 77847-6) Parainfluenza Virus 1 Not detected Not detected, (test code = 45883-0) Equivocal Parainfluenza Virus 2 Not detected Not detected, (test code = 51461-3) Equivocal Parainfluenza virus 3 Not detected Not detected, (test code = 28514-6) Equivocal Parainfluenza Virus 4 Not detected Not detected, (test code = 83626-3) Equivocal Adenovirus (test code = Not detected Not detected, 35974-0) Equivocal Coronavirus 229E (test Not detected Not detected, code = 50911-6) Equivocal Coronavirus HKU1 (test Not detected Not detected, code = 80555-8) Equivocal Coronavirus NL63 (test Not detected Not detected, code = 49982-5) Equivocal Coronavirus OC43 (test Not detected Not detected, code = 01910-5) Equivocal Bordetella Pertussis Not detected Not detected, (test code = 85707-3) Equivocal Chlamydophila Not detected Not detected, Pneumoniae (test code = Equivocal 09376-7) Mycoplasma Pneumoniae Not detected Not detected, (test code = 98833-5) Equivocal Severe Acute Not detected Not detected, Elyznfewhut-NgA-4 (test Equivocal code = 71789-2) Bordtella Parapertussis Not detected Not detected, (test code = 97496-5) Equivocal AREN (test code = AREN) Other viruses and bacteria not targeted by this PCR panel cannot be excluded; therefore clinical correlation and follow up of serology, culture results, and other molecular studies is required. The results are not intended to be used as the sole means for clinical diagnosis or patient management decisions. This sample was tested at the [facility] using the PulsarArray Respiratory Panel. It is FDA cleared and has been verified and approved by the [facility] for clinical use on nasopharyngeal swab specimens. The performance of the FilmArray RP has not been established in individuals who received influenza vaccine. Recent administration of a nasal influenza vaccine may cause false positive results for Influenza A and/orInfluenza B. [facility] [id number] 09:54:15 Test Item Value Reference Range Interpretation [...] SEVERE ACUTE RESPIRATORY Not detected Not detected, BIOHMNNV-KSHWCKUYNQD-2 Equivocal (test code = 5069525) BORDETELLA PARAPERTUSSIS Not detected Not detected, (BKR) (test code = 5282428) Equivocal Other viruses and bacteria not targeted by this PCR panel cannot be excluded; therefore clinical correlation and follow up of serology, culture results, and other molecular studies is required. The results are not intended to be used as the sole means for clinical diagnosis or patient management decisions. This sample was tested at the [facility] using the [employer] FilmArray Respiratory Panel. It is FDA cleared and has been verified and approved by the [facility] for clinical use on nasopharyngeal swab specimens.The performance of the FilmArrayRP has not been established in individuals who received influenza vaccine. Recent administration of a nasal influenza vaccine may cause false positive results for Influenza A and/orInfluenza B.LACTIC ACID, [id number] 09:02:56 Test Item Value Reference Range Interpretation Comments LACTATE BLOOD ARTERIAL > mmol/L 0.5-2.2 HH Speci men slightly (2) (BEAKER) (test hemolyzed code = 2874) Turnstile Attendant ID - NEIL GSpecimen markedly ictericSpecimen slightly lipemicBLOOD GAS, [id number] 08:43:26 Test Item Value Reference Range Interpretation [...] (BEAKER) (test code = 1819) 70.0 POCT-GLUCOSE [id number] 07:00:32 Test Item Value Reference Range Interpretation Comments POC-GLUCOSE METER 83 mg/dL 70-110 : TESTED A T [facility] 6720 (BEAKER) (test code = [place], 1538) [address]: Turnstile Attendant/Techni waylon ID = [id number] for ELAINE MORRIS COMPREHENSIVE METABOLIC [id number] 06:32:08 Test Item Value Reference Range Interpretation [...] not appl icable for dialysis patien ts Turnstile Attendant ID - ADMINOperator ID - ADMINSpecimen markedly ictericPROCALCITONIN 2022-12-17 06:20:10 Test Item Value Reference Range Interpretation Comments PROCALCITONIN (BEAKER) (test code 57.72 ng/mL <0.05 HH = 3036) SEPSIS RISK (ng/mL)Low: 0.05-0.50Intermediate: 0.51-2.00High: >=2.01AMMONIA 2022-12-17 06:19:34 Test Item Value Reference Range Interpretation Comments AMMONIA (BEAKER) 147 mol/L 18-72 H Specimen sl ightly (test code = 348) hemolyzed Turnstile Attendant ID - NEIL GOperator ID - NEIL GRETICULOCYTE [id number] 06:14:58 Test Item Value Reference Range Interpretation Comments RETICULOCYTE COUNT PCT (BEAKER) (test 4.5 % 0.5-1.7 H code = 575) Turnstile Attendant ID - 6000Operator ID - [id number] W/PLT [...] (BEAKER) (test code = 413) BLOOD GAS, [id number] 06:08:18 Test Item Value Reference Range Interpretation [...] FIO2 (BEAKER) (test code = 1819) 100.0 [id number] 06:00:13 Test Item Value Reference Range Interpretation Comments PARTIAL THROMBOPLASTIN TIME 35.6 seconds 22.5-36.0 (BEAKER) (test code = 760) PROTHROMBIN TIME/[id number] 05:59:50 Test Item Value Reference Range Interpretation [...] (BEAKER) (test code = hemoly zed 635) Turnstile Attendant ID - ADMINOperator ID - [id number] 05:43:48 Test Item Value Reference Range Interpretation Comments PHOSPHORUS (BEAKER) 8.2 mg/dL 2.3-4.7 H Specimen slightly (test code = 604) hemolyzed Turnstile Attendant ID - ADMINBILIRUBIN, [id number] 05:43:48 Test Item Value Reference Range Interpretation Comments BILIRUBIN DIRECT 9.0 mg/dL 0.1-0.5 H Specimen sl ightly (BEAKER) (test code = hemoly zed 706) Turnstile Attendant ID - [id number] 05:43:47 Test Item Value Reference Range Interpretation Comments MAGNESIUM (BEAKER) 4.3 mg/dL 1.6-2.6 H Specimen slightly (test code = 627) hemolyzed Turnstile Attendant ID - [id number] 05:42:45 Test Item Value Reference Range Interpretation Comments HAPTOGLOBIN (BEAKER) (test code = < mg/dL 14-258 L 366) Turnstile Attendant ID - ADMINHIGH SENSITIVITY TROPONIN [id number] 05:42:22 Test Item Value Reference Range Interpretation Comments HIGH SENSITIVITY TROPONIN I (test 698 pg/ml <=17 HH code = 2970059) Turnstile Attendant ID - ADMINThe PRIVACY ANALYST STAT High Sensitivity Troponin-I results should be used in conjunction with other diagnostic information such as ECG, clinical observations and information, and patientsymptoms to aid in the diagnosis of [place]. LACTIC ACID, [id number] 05:24:49 Test Item Value Reference Range Interpretation Comments LACTATE BLOOD ARTERIAL > mmol/L 0.5-2.2 HH Speci men slightly (2) (BEAKER) (test hemolyzed code = 2874) Turnstile Attendant ID - NEIL GSpecimen markedly ictericCALCIUM, [id number] 05:23:14 Test Item Value Reference Range Interpretation Comments CALCIUM IONIZED (BEAKER) (test 0.87 mmol/L 1.12-1.27 L code = 698) PH, BLOOD (BEAKER) (test code = 7.37 1810) U/S, ABDOMINAL, [id number] 04:54:00Abdomen limited area? Add comment if clarification is needed.->Right upper quadrantReason for exam:->With Dopplers for elevated liver enzymesShould this be performed at the bedside?->Yes[facility] : 1975 Sex: FFINAL [...] MDReport Verified Date/Time: 12/17/2022 04:54:05 BLOOD GAS, [id number] 04:33:17 Test Item Value Reference Range Interpretation [...] (BEAKER) (test code = 1819) 100.0 BILIRUBIN, [id number] 04:32:50 Test Item Value Reference Range Interpretation Comments BILIRUBIN DIRECT 8.3 mg/dL 0.1-0.5 H Specimen sl ightly (BEAKER) (test code = hemoly zed 706) Turnstile Attendant ID - NEIL GSpecimen slightly lipemicVITAMIN [id number] 03:53:21 Test Item Value Reference Range Interpretation Comments VITAMIN B12 (BEAKER) (test code = > pg/mL 213-816 H 774) Turnstile Attendant ID - NEIL GRAD, CHEST, 1 VIEW, NON [id number] 03:31:00Reason for exam:->Line insertionShould this be performed at the bedside?->YesIs the patient ?->No [facility] [place] : 1975 Sex: FFINAL REPORT CLINICAL INDICATION: [...] MDReport Verified Date/Time: 12/17/2022 03:31:29 D GAS, [id number] 03:12:07 Test Item Value Reference Range Interpretation [...] 1819) 100.0 CBC W/PLT COUNT & AUTO [id number] 02:25:52 Test Item Value Reference Range Interpretation [...] with cold agglutinin.Rare erythrophagocytosis present.TSH/FREE T4 IF [id number] 02:08:01 Test Item Value Reference Range Interpretation Comments THYROID STIMULATING HORMONE 1.872 uIU/mL 0.350-4.940 (BEAKER) (test code = 772) Turnstile Attendant ID - ADMINBASIC METABOLIC [id number] 01:42:48 Test Item Value Reference Range Interpretation [...] not appl icable for dialysis patien ts Turnstile Attendant ID - ADMINSpecimen markedly [id number] 01:28:07 Test Item Value Reference Range Interpretation Comments FIBRINOGEN LEVEL (BEAKER) (test code < mg/dl 225-434 LL = 658) [id number] 01:23:18 Test Item Value Reference Range Interpretation [...] of thrombosis is within 95-100% range.BLOOD GAS, [id number] 00:32:35 Test Item Value Reference Range Interpretation [...] (BEAKER) (test code = 1819) 100.0 RETICULOCYTE [id number] 00:26:24 Test Item Value Reference Range Interpretation Comments RETICULOCYTE COUNT PCT (BEAKER) (test 5.5 % 0.5-1.7 H code = 575) Turnstile Attendant ID - 6000Operator ID - [id number] 23:57:22 Test Item Value Reference Range Interpretation Comments PHOSPHORUS (BEAKER) 10.0 mg/dL 2.3-4.7 HH Specimen slightly (test code = 604) hemolyzed Turnstile Attendant ID - ADMINCOMPREHENSIVE METABOLIC [id number] 23:57:05 Test Item Value Reference Range Interpretation [...] not appl icable for dialysis patien ts Turnstile Attendant ID - ADMINSpecimen markedly ictericLACTATE DEHYDROGENASE (LDH) 2022-12-16 23:54:23 Test Item Value Reference Range Interpretation Comments LACTATE DEHYDROGENASE 5509 U/L 125-220 H Specim en slightly (BEAKER) (test code = hemoly zed 635) Turnstile Attendant ID - ADMINOperator ID - [id number] 23:50:47 Test Item Value Reference Range Interpretation Comments MAGNESIUM (BEAKER) 4.0 mg/dL 1.6-2.6 H Specimen slightly (test code = 627) hemolyzed Turnstile Attendant ID - ADMINCREATINE KINASE (CK)2022-12-16 23:50:47 Test Item Value Reference Range Interpretation Comments CREATINE KINASE TOTAL (BEAKER) (test 246 U/L 29-200 H code = 380) Turnstile Attendant ID - ADMINB-TYPE NATRIURETIC FACTOR (BNP)2022-12-16 23:49:23 Test Item Value Reference Range Interpretation Comments B-TYPE NATRIURETIC PEPTIDE 1214 pg/mL 0-100 H (BEAKER) (test code = 700) Turnstile Attendant ID - ADMINHIGH SENSITIVITY TROPONIN [id number] 23:49:01 Test Item Value Reference Range Interpretation Comments HIGH SENSITIVITY TROPONIN I (test 341 pg/ml <=17 H code = 0755631) Turnstile Attendant ID - ADMINThe PRIVACY ANALYST STAT High Sensitivity Troponin-I results should be used in conjunction with other diagnostic information such as ECG, clinical observations and information, and patientsymptoms to aid in the diagnosis of [place]. LACTIC ACID, [id number] 23:46:32 Test Item Value Reference Range Interpretation Comments LACTATE BLOOD VENOUS > mmol/L 0.50-2.20 HH Specime n slightly (2) (BEAKER) (test hemolyzed code = 2872) Turnstile Attendant ID - ADMINSpecimen markedly [id number] 23:45:44 Test Item Value Reference Range Interpretation Comments PARTIAL THROMBOPLASTIN TIME 37.7 seconds 22.5-36.0 H (BEAKER) (test code = 760) [id number] 23:45:23 Test Item Value Reference Range Interpretation Comments HAPTOGLOBIN (BEAKER) (test code = < mg/dL 14-258 L 366) Turnstile Attendant ID - ADMINPROTHROMBIN TIME/[id number] 23:45:07 Test Item Value Reference Range Interpretation Comments PROTIME (BEAKER) (test code = 31.7 seconds 11.9-14.2 H 759) INR (BEAKER) (test code = 370) 3.32 <=5.90 RECOMMENDED COUMADIN/WARFARIN INR THERAPY RANGESSTANDARD DOSE: 2.0 - 3.0 Includes: PROPHYLAXIS for venous thrombosis, systemic embolization; TREATMENT for venous thrombosis and/or pulmonary embolus.HIGH RISK: Target INR is 2.5-3.5 for patients with mechanical heart valves.BLOOD GAS, [id number] 23:32:56 Test Item Value Reference Range Interpretation [...] (BEAKER) 37.0 (test code = 1818) POCT-GLUCOSE [id number] 23:32:51 Test Item Value Reference Range Interpretation Comments POC-GLUCOSE METER 150 mg/dL 70-110 H : TESTED A T [facility] 6720 (BEAKER) (test code [facility], = 1538) [address]: Turnstile Attendant/Techni waylon ID = [id number] for SUGU , SHEENAMOL POC [id number] 23:29:37 Test Item Value Reference Range Interpretation Comments POC-Glucose (test code = 157 mg/dL 70-110 H : T [place] AT [facility] 1855) [address] [place] [address], [address]: Turnstile Attendant/Techni waylon ID = [id number] for URCIA, FAMELA Lab Interpretation (test Abnormal code = 71450-4) [id number] 23:29:37 Test Item Value Reference Range Interpretation Comments POC-GLUCOSE (BEAKER) 157 mg/dL 70-110 H : TESTE D AT [facility] 6720 (test code = 1855) [facility], [address]: Turnstile Attendant/Techni waylon ID = [id number] for URCI A, FAMELA ZFT-[id number] 23:29:36 Test Item Value Reference Range Interpretation Comments POC-Potassium (test code 6.1 meq/L 3.6-5.5 HH : T ESTED AT [facility] = 1540) [address] [place] [address], [address]: Turnstile Attendant/Techni waylon ID = [id number] for URCIA, FAMELA Lab Interpretation (test Abnormal code = 24283-0) [facility] CenterKamwteXWDC-[id number] 23:29:36 Test Item Value Reference Range Interpretation Comments POC-Hemoglobin (test code 5.8 g/dL 12.0-15.0 LL : TESTED AT [facility] = 1856) [address] [place] [address], [address]: Turnstile Attendant/Techni waylon ID = [id number] for URCIA, FAMELA Lab Interpretation (test Abnormal code = 72793-8) [facility] CenterIuadomLNAS-[id number] 23:29:36 Test Item Value Reference Range Interpretation Comments POC-Hematocrit (test code 17 % 36-45 L : = 1857) Turnstile Attendant/Techni waylon ID = [id number] for URCIA, FAMELA Lab Interpretation (test Abnormal code = 57381-2) [facility]POCT-[id number] 23:29:36 Test Item Value Reference Range Interpretation Comments POC-POTASSIUM 6.1 meq/L 3.6-5.5 HH : TESTED AT [place] [address] ([place]) (test code [facility], = 1540) [address]: Turnstile Attendant/Techni waylon ID = [id number] for URCI A, FAMELA [id number]-[id number] 23:29:36 Test Item Value Reference Range Interpretation Comments POC-HEMOGLOBIN 5.8 g/dL 12.0-15.0 LL : TESTED AT [place] [address] ([place]) (test code = ROZ [place] [facility], 1856) [address]: Turnstile Attendant/Techni waylon ID = [id number] for URCI A, FAMELA [id number] 23:29:36 Test Item Value Reference Range Interpretation Comments POC-HEMATOCRIT 17 % 36-45 L : Turnstile Attendant/Te chnician ID = ([place]) (test code = 181439 for URCIA, FAMELA 1857) POC-Blood gases, [id number] 23:29:35 Test Item Value Reference Range Interpretation Comments Temp. Celsius-POC (test 97.0 code = 1834) FIO2-POC (test code = 100 1835) pH, Venous-POC (test 7.005 7.320-7.420 LL : TESTE D AT [facility] code = 1842) 67[address] [facility], [address] PCO2, Venous-POC (test 49.3 See_Comment If pO 2 is >180, code = 1843) pCO2 may be positively bias ed [Automated mess age] The system [employer] generated this result transmit tomy reference range [...] meq/L -2.0-3.0 L : code = 1847) Turnstile Attendant/Techni waylon ID = [id number] for URCIA, FAMELA Lab Interpretation Abnormal (test code = 49329-0) [facility]-[id number] 23:29:35 Test Item Value Reference Range Interpretation Comments POC-Sodium (test code = 144 meq/L 135-148 : TE STED AT [facility] 1542) 6720 [facility] [place], [address]: Turnstile Attendant/Techni waylon ID = [id number] for URCIA, FAMELA Lab Interpretation (test Normal code = 73289-5) [facility]-BLOOD GASES, [id number] 23:29:35 Test Item Value Reference Range Interpretation Comments TEMP, CELSIUS-POC 97.0 (BEAKER) (test code = 1834) FIO2-POC (BEAKER) 100 (test code = 1835) PH, VENOUS-POC 7.005 7.320-7.420 LL : TESTED AT [facility] 6720 (BEAKER) (test [facility] [place], code = 1842) [address] PCO2, VENOUS-POC 49.3 mm Hg 41.0-51.0 If pO2 is > 180, pCO2 may (BEAKER) (test be positively biased code = 1843) PO2, VENOUS-POC 32.0 mm Hg 25.0-40.0 (BEAKER) (test code = 1844) SO2, VENOUS-POC 39.0 % 40.0-70.0 L (BEAKER) (test code = 1845) HCO3, VENOUS-POC 12.5 meq/L 21.0-29.0 L (BEAKER) (test code = 1846) BASE EXCESS, -19.0 meq/L -2.0-3.0 L : Turnstile Attendant/Tech nician ID VENOUS-POC = [id number] for UR ALCIDES, (BEAKER) (test FAMELA code = 1847) [id number] 23:29:35 Test Item Value Reference Range Interpretation Comments POC-SODIUM (BEAKER) 144 meq/L 135-148 : TESTED AT [facility] 6720 (test code = 1542) [place], [address]: Turnstile Attendant/Techni waylon ID = [id number] for URCI A, FAMELA CALCIUM, [id number] 23:24:15 Test Item Value Reference Range Interpretation Comments CALCIUM IONIZED (BEAKER) (test 1.01 mmol/L 1.12-1.27 L code = 698) PH, BLOOD (BEAKER) (test code = 6.96 1810) RAD, CHEST, 1 VIEW, NON [id number] 23:19:00Post-intubationReason for exam:- >SOBShould this be performed at the bedside?->Yes [facility] : 1975 Sex: FFINAL [...] Dav Domínguez MDReport Verified Date/Time: 12/16/2022 23:19:07 El ectronically signed by: DAV DOMÍNGUEZ MD on 12/16/2022 [...] 0.06 X10 3uL 0.00-0.01 H NRBC#) - XR CHEST 1 [id number] 07:31:00 [facility] : 1975 Sex: F FAX:Rancho Bess MD [phone] [place]: St: [facility] FAX: Neris Estrada MD [phone] Name: LIZBET RAHMAN [facility] : 1975 Age/S: 47/F [address] [facility] Unit #: [id number] Loc: [address] Phys: [place] [address] Acct: [id number] Dis Date: Status: ADM IN PHONE #: [phone] Exa m Date: 11/24/2022 06 FAX #: [phone] Reason: sob EXAMS: CPT CODE: [id number] XR CHEST 1 V 66585 EXAM: - XR CHEST 1 V COMPARISON: 11/23/2022 LOCATION: C3 HISTORY: sob FINDINGS: Single view of thechest. No indwelling lines or tubes. No pneumothorax. The lungs are clear without significant effusio ns. The mediastinal contours are unremarkable/unchanged. No acute osseous findings are present. IMPRESSION: No acute cardiopulmonary abnormality. Electronically Signed by Marifer Verdugo on11/24/2022 at 0731 Reported and signed by: Herve Verdugo M.D. CC: [place] MD; Neris Estrada MD Technologist: KEI HERNANDEZ Trnokrd Date/Time/By: 11/24/2022 (6965) : By: [email or web address] PAGE 1Signed Report FAX: Rancho Bess MD [phone] [place]: St: ADM FAX: Neris Estrada MD [phone] Name: LIZBET RAHMAN [facility] : 1975 Age/S: 47/F [address] [facility] Unit #: [id number] Loc:[address] [place] [address] Phys: [place] [address] Acct: [id number] Dis Date: Status: ADM IN PHONE #: [phone] Exam Date: 11/24/2022 06 FAX #: [phone] Reason: sob EXAMS: CPT CODE: [id number] XR CHEST 1 V 23697 (Continued) Orig Print D/T: S: 11/24/2022 (5339) PAGE 2 Signed [id number] 20:15:00 Test Item Value Reference Range Interpretation Comments GLUBED (test code = GLUBED) 95 mg/dL 70-110 N [id number] 14:54:00 Test Item Value Reference Range Interpretation Comments GLUBED (test code = GLUBED) 99 mg/dL 70-110 N [id number] 11:21:00 Test Item Value Reference Range Interpretation Comments GLUBED (test code = GLUBED) 103 mg/dL 70-110 N CBC W/AUTO [id number] 08:38:00 Test Item Value Reference Range Interpretation [...] = 0.03 X10 3uL 0.00-0.01 H NRBC#) [id number] 07:26:00 Test Item Value Reference Range Interpretation Comments GLUBED (test code = GLUBED) 73 mg/dL 70-110 N - XR CHEST 1 [id number] 06:44:00 [facility] : 1975 Sex: F FAX:Rancho Bess MD [phone] [place]: St: [facility] FAX: Neris Estrada MD [phone] Name[facility]: 1975 [facility] 47[facility]F [address] [facility] Unit #: [id number] Loc: [address] [place], [place] Phys: [place] [address] Acct: [id number] Dis Date: Status: ADM IN PHONE #: [phone] Exam Date: 11/23/2022 0601 FAX #: [phone] Reason: sob EXAMS: CPT CODE: [id number] XR CHEST 1 V 94572 EXAM: - XR CHEST 1 V COMPARISON: Prior day. LOCATION: HISTORY: sob FINDINGS: Single view of the chest. No indwelling lines/tubes. No pneumothorax. No consolidation or significant effusion. The me diastinal contours are unchanged. IMPRESSION: No acute pulmonary findings. at 0644 Reported and signed by: Herve Verdugo M.D. CC: [place] MD; Neris Estrada MD Technologist: SO CEE [facility] Date/Time/By: 11/23/2022 (0644) : By: [email or web address] PAGE 1 Signed Report FAX: Rancho Bess MD [phone] [place]: St: [facility] FAX: Neris Estrada MD [phone] Name: LIZBET RAHMAN [facility] : 1975 Age/S: 47/F [address] [facility] Unit #: [id number] Loc: [address] [place], [place]: [place] [address] Acct: [id number] DisDate: Status: ADM IN PHONE #: [phone] Exam Date: 11/23/2022 0601 FAX #: [phone] Reason: sob EXAMS: CPT CODE: [id number] XR CHEST 1 V 66183 (Continued) Orig Print D/T: S: 11/23/2022 (0647) PAGE 2 Signed ReportCBC W/AUTO [id number] 20:37:00 Test Item Value Reference Range Interpretation [...] = 0.02 X10 3uL 0.00-0.01 H NRBC#) [id number] 20:15:00 Test Item Value Reference Range Interpretation Comments GLUBED (test code = GLUBED) 99 mg/dL 70-110 N - US TRANSVAGINAL NON [id number] 14:00:00 [facility] : 1975 Sex: F FAX:Neris Estrada MD [phone] [place]: F[address] St: ADM Name: LIZBET RAHMAN [facility] : 1975 Age/S: 47/F [address] [facility] Unit #: [id number] Loc: [address] [place], [place]: [place] [address] Acct: [id number] Dis Date: Status: ADM IN PHONE #: [phone] Exam Date: 11/22/2022 1248 FAX #: [phone] Reason: PELVIC MASS EXAMS: CPT CODE: [id number] [place] [address] HISTORY: Pelvic mass. Comparison to CT abdomen [...] Terry M.D. CC: Neris Estrada MD Technologist: [id number] 1; [facility] Date/Time/By: 11/22/2022 (1400) : By: [email or web address] PAGE 1 Signed Report FAX: Neris Estrada MD [phone] [place]: St: ADM Name: LIZBET RAHMAN [facility] : 1975 Age/S: 47/F [address] Unit #: [id number] Loc: [address] [place], [place]: [place] [address] Acct: [id number] Dis Date: Status: ADM IN PHONE #: [phone] Exam Date: 10/28 1240 FAX #: [phone] Reason: PELVIC MASS EXAMS: CPT CODE: [id number] [place] [address] (Continued) Orig Print D/T: S: 11/22/2022 (1403) PAGE 2 Signed Report- DUP AB/PEL/SC [id number] 14:00:00 [facility] 1975 Sex: F FAX: Neris Estrada MD [phone] [place]: St: ADM Name: LIZBET RAHMAN [facility] : 1975 Age/S: 47/[address] [employer] Unit #: [id number] Loc: [address] [place], [place]: [place] [address] Acct: [id number] Dis Date: Status: ADM IN PHONE #: [phone] Exam Date: 11/22/2022 1248 FAX #: [phone] Reason: MASS ON CT EXAMS: CPT CODE: [id number] DUP AB/PEL/SC COMP 66482 HISTORY: Pelvic mass. Comparison to CT abdomen [...] CC: Neris Estrada MD Technologist: LIV BLOOM Trnokrd Date/Time/By: 11/22/2022 (1400) : By: [email or web address] PAGE 1 Signed Report FAX: Neris Estrada MD [phone] [place]: St: ADM Name: LIZBET RAHMAN [facility] : 1975 Age/S: 47/F [address] [facility]: [id number] Loc: E.427 [place], [place] Phys: Neris Estrada [place] [id number]: [id number] Dis Date: Status: ADM IN PHONE #: [phone] Exam Date: 11/22/20221247 FAX #: [phone] Reason: MASS ON CT EXAMS: CPT CODE: [id number] DUP AB/PEL/SC COMP 74773 (Continued) Orig Print D/T: S: 11/22/2022 (1403) PAGE 2 Signed Report- US PELVIS [id number] 14:00:00 [facility] : 1975 Sex: F FAX:Neris Estrada MD [phone] [place]: St: ADM FAX: Shreyas Marti [phone] Name: LIZBET RAHMAN [facility] : 1975 Age/S: 47/F [address] [facility] Unit #: [id number] Loc: [address] Phys: [place] [address] Acct: [id number] Dis Date: Status: ADM IN PHONE #:[phone] Exam Date: 11/22/20221247 FAX #: [phone] Reason: pelvic mass EXAMS: CPT CODE: [id number] US PELVIS COMPLETE 11340 HISTORY: Pelvic mass. Comparison to CT abdomen [...] Estrada MD; Carmenza Romo MD Technologist: LIV Becerril rnscrd Date/Time/By: 11/22/2022 (1400) : By: [email or web address] PAGE 1 Signed Report FAX: Neris Estrada MD [phone] [place]iley: St: [facility] FAX: Shreyas Marti [phone] Name: LIZBET RAHMAN [facility] : 1975 Age/S: 47/F [address] [facility] Unit #: [id number] Loc: [address] Phys: [place] [address] Acct: [id number] Dis Date: Status: ADM IN PHONE #: [phone] Exam Date: 11/22/2022 1243 FAX #: [phone] Reason: pelvic mass EXAMS: CPT CODE: [id number] US PELVIS COMPLETE 38987 (Continued) Orig Print D/T: S: 11/22/2022 (4353) PAGE 2 Signed [id number] 08:56:00 Test Item Value Reference Range Interpretation Comments GLUBED (test code = GLUBED) 100 mg/dL 70-110 N CBC W/AUTO [id number] 07:31:00 Test Item Value Reference Range Interpretation [...] X10 3uL 0.00-0.01 N NRBC#) COMPREHENSIVE METABOLIC [id number] 07:28:00 Test Item Value Reference Range Interpretation [...] recommended for sudhir for GFRby the N [facility] on for Adults.The GFR will [...] code = ALKP) - XR CHEST 1 [id number] 06:51:00 [facility] : 1975 Sex: F FAX: Rancho Bess MD [phone] [place]iley: St: [facility] FAX: Neris Estrada MD [phone] Name: JAYSHREE RAHMANE [facility] : 1975 Age/S: 47/F [address] [facility] Unit #: [id number] Loc: [address] Phys: [place] [address] Acct: [id number] Dis Date: Status: ADM IN PHONE #: [phone] Susan m Date: 11/22/2022501 FAX #: [phone] Reason: sob EXAMS: CPT CODE: [id number] XR CHEST 1 V 80669 EXAM: - XR CHEST 1 V COMPARISON: 11/19/2022 LOCATION: 7 HISTORY: sob FINDINGS: Single view of thechest. Unchanged indwelling lines/tubes. No pneumothorax. No consolidation or significant effusion. The mediastinal contours are unchanged. IMPRESSION: No acute pulmonary findings. at 0651 Reported and signed by: Herve Verdugo M.D.CC: Rancho Oreilly MD; Neris Estrada MD Technologist: GINGER LI Trnscrd Date/Time/By: 11/22/2022(0651) : By: Akin.[email or web address] PAGE 1 Signed Report FAX: Rancho Bess MD [phone] [place]: St: ADM FAX: Neris Estrada MD [phone] Name: LIZBET RAHMAN [facility] : 1975 Age/S: 47/F [address] [facility] Unit #: [id number] Loc: [address] Phys: [place] [address] Acct: [id number] Dis Date: Status: ADM IN PHONE #: [phone] Exam Date: 11/22/2022501 FAX #: [phone] Reason: sob EXAMS: CPT CODE: [id number] XR CHEST 1 V 94223 (Continued) Orig Print D/T: S: 11/22/2022 (0654) PAGE 2 Signed [id number] 21:06:00 Test Item Value Reference Range Interpretation Comments GLUBED (test code = GLUBED) 102 mg/dL 70-110 N [id number] 20:10:00 Test Item Value Reference Range Interpretation Comments GLUBED (test code = GLUBED) 104 mg/dL 70-110 N CBC W/MANUAL [id number] 14:02:00 Test Item Value Reference Range Interpretation [...] (test code NORMAL = PLTMORPH) ARTERIAL BLOOD [id number] 10:49:00 Test Item Value Reference Range Interpretation [...] MAL = METHGB) <2.0POTENTIALLY TOXIC >20.0 RETICULOCYTE [id number] 08:56:00 Test Item Value Reference Range Interpretation Comments RETIC COUNT (AUTOMATED) (test 4.50 % 0.58-2.72 H code = RETICA) RETIC COUNT ABSOLUTE (test 0.0896 X10 6 uL 0.0237-0.1295 N code = RET#) IMMATURE RETICULOCYTE 34.0 % 0.0-29.5 H FRACTION (test code = IRF) RETICULOCYTE HGB EQUIVALENT 32.5 pg 27.4-42.0 N (test code = RETHE) [id number] 08:38:00 Test Item Value Reference Range Interpretation Comments GLUBED (test code = GLUBED) 110 mg/dL 70-110 N BILIRUBIN [id number] 08:35:00 Test Item Value Reference Range Interpretation Comments BILIRUBIN TOTAL (test code = BILT) 5.7 mg/dl 0.0-1.0 H LACTIC DEHYDROGENASE(LDH)2022-11-21 08:35:00 Test Item Value Reference Range Interpretation Comments LACTIC DEHYDROGENASE(LDH) (test 1847 Units/L 81-234 HH code = LDH) BASIC METABOLIC [id number] 08:34:00 Test Item Value Reference Range Interpretation [...] code 8.7 mg/dl 8.0-10.5 N = CA) [id number] 21:52:00 Test Item Value Reference Range Interpretation Comments HGBA1C% (test code = <3.8 %A1C 4.8-6.0 L TEST PE RFORMED AT HGBA1C%) [facility]. ESTIMATED AVERAGE 62 MG/DL GLUCOSE (test code = EAG) UNABLE TO GET THE RESULT---SENT [place] [facility] AT 192--NOTIFIED WESLEY RICHARDSON AT 1924.[id number] 21:04:00 Test Item Value Reference Range Interpretation Comments GLUBED (test code = GLUBED) 95 mg/dL 70-110 N [id number] 16:45:00 Test Item Value Reference Range Interpretation Comments GLUBED (test code = GLUBED) 89 mg/dL 70-110 N LACTIC [id number] 15:59:00 Test Item Value Reference Range Interpretation Comments LACTIC ACID (test code = LACT) 1.8 mmol/L 0.4-2.0 N RETICULOCYTE [id number] 15:45:00 Test Item Value Reference Range Interpretation Comments RETIC COUNT (AUTOMATED) (test 3.34 % 0.58-2.72 H code = RETICA) RETIC COUNT ABSOLUTE (test 0.0568 X10 6 uL 0.0237-0.1295 N code = RET#) IMMATURE RETICULOCYTE 24.4 % 0.0-29.5 N FRACTION (test code = IRF) RETICULOCYTE HGB EQUIVALENT 30.5 pg 27.4-42.0 N (test code = RETHE) CBC W/MANUAL [id number] 14:18:00 Test Item Value Reference Range Interpretation [...] NORMAL (test code = PLTMORPH) CBC W/AUTO [id number] 14:08:00 Test Item Value Reference Range Interpretation [...] 0.00-0.01 H code = NRBC#) CBC W/AUTO [id number] 12:22:00 Test Item Value Reference Range Interpretation [...] H (test code = NRBC#) BASIC METABOLIC [id number] 12:12:00 Test Item Value Reference Range Interpretation [...] the recommended for sudhir for GFRby the [facility] on for Adults.The GFR will not calculate if th e sex is unknown or if thepatient's ag e is <18 years. CREATININE (test 1.37 mg/dL 0.60-1.30 H code = CREAT) ESTIMATED CREAT 39 mL/min >30 CLEARANCE (test code = ECRCL) CALCIUM (test code 8.6 mg/dl 8.0-10.5 N = CA) COVID 19 INHOUSE [id number] 09:35:00 Test Item Value Reference Range Interpretation Comments COVID 19 INHOUSE NEGATIVE NEGATIVE Negative re sults should be AG (test code = treated as p resumptive and [id number]) ifinconsistent with clinical signs and sympt oms, or necessaryfor pa tient management, kai uld be tested with an alterna tivemolecular assay. Negative results do not preclude ZHPF-TuJ-9ihsqe tion and should not be u sed as the sole basis forp atient management deci sions. Negative result s should beconsidered in the context of a patient's recent exposures,histo ry, presence of clinical sig ns and symptoms consis tentwith COVID-19. - XR CHEST 1 [id number] 20:07:00 [facility] : 1975 Sex: F FAX:Dawson Herrera DO [phone] [place]: St: ADM FAX: James Bundy Name: GRIS,LIZBET [facility] : 1975 Age/S: 47/F [address] [facility] Unit #: [id number] Loc: LINH [place], [place] Phys: James BundyP [address] Acct: [id number] Dis Date: Status: ADM IN PHONE #: [phone] Exam Date: 11/19/20221958 FAX #: [phone] Reason: OPACITIES EXAMS: CPT CODE: [id number] XR CHEST 1 V 70442 EXAM: - XR CHEST 1 V HISTORY: Chest pain. COMPARISON: None available time of interpretation. FINDINGS: Single AP view of the chest is provided. Heart size and vascularity are within normal limits.Hypoinflation of the lungs. Elevated right hemidiaphragm. There is no evidence of a focal consolidation. There is no pleural effusion or pneumothorax. There is no definite acute osseous abnormality. IMPRESSION: No radiographic evidence of acute cardiopulmonary process. Hypoinflation of the lungs. El ectronically Signed by Marifer Hearn on 11/19/2022 at 2006 Reported and signed by: Zane Hearn M.D. CC: Dawson Herrera DO; James Bundy Technologist: GINGER LI Trnaliciard Date/Time/By: 11/19/2022 (2006) : By: [email or web address] PAGE 1 Signed Report FAX: Dawson Herrera DO [phone] Smiley: St: ADM FAX: James Bundy Name: LIZBET RAHMAN [facility] : 1975 Age/S: 47/F [address] [facility] Unit #: [id number] Loc: LINH [place], [place] Phys: James Bundy [address] Acct: [id number] Dis Date: Status: ADM IN PHONE #: [phone] Exam Date: 11/19/20221958 FAX #: [phone] Reason: OPACITIES EXAMS: CPT CODE: [id number] XR CHEST 1 V 19000 (Continued) Orig Print D/T: S: 11/19/2022 (2009) PAGE 2 Signed Report- CT ABD PELVIS [id number] 18:37:00 [facility] 1975 Sex: F FAX:James Bundy Sm[place]: St: REG Name: LIZBET RAHMAN [facility] : 1975 Age/S: 47/F [address] [facility] Unit: [id number] Loc: [address] Phys: James Bundy [address] Acct: [id number] Dis Date: Status: REG ER PHONE #: [phone] Exam Date: 11/19/2022 180 FAX #: [phone] Reason: RLQ PAIN EXAMS: CPT CODE: [id number] CT ABD PELVIS W/CONT 17035 EXAMINATION: - CT ABD PELVISW/CONT CLINICAL INDICATION: [...] 1 Signed Report (CONTINUED) FAX: James Bundy Smiley: St: REG Name: LIZBET RAHMAN [facility] : 1975 Age/S: 47/F [address] [facility] Unit: [id number] Loc: [address] Phys: James Bundy [address] Acct: [id number] Dis Date: Status: REG ER PHONE #: [phone] Exam Date: 11/19/2022 1803 FAX #: [phone] Reason: RLQ PAIN EXAMS: CPT CODE: [id number] CT ABD PELVIS W/CONT 86480 (Continued) Bowel: Loops of bowel without wall [...] 11/19/2022 (1840 PAGE 2 Signed ReportBASIC METABOLIC [id number] 17:13:00 Test Item Value Reference Range Interpretation [...] (test code = ECRCL) HEPATIC FUNCTION PANEL [id number] 17:13:00 Test Item Value Reference Range Interpretation [...] 130 Units/L 50.0-136.0 N code = ALKP) [id number] 17:13:00 Test Item Value Reference Range Interpretation Comments LIPASE (test code = LIP) 129 Units/L 65.0-230.0 N TROP-I HIGH [id number] 17:13:00 Test Item Value Reference Range Interpretation Comments TROP-I HIGH 9.2 pg/mL 0.0-51.4 N CAUTION: Units of the SENSITIVITY (test current TR OPI-HS test code = TROPIHS) methodology( pg/mL) differ from the prior test methodolog y (ng/mL) by afac tor of 1000. -------- -------- ---99th Percentile: Fem ales: 0.0-51.4 pg/mL Males: 0.0-76.2 pg/tar pot man hese results were ob tained using Dimension EXL TnIHreagent. Re sults from different methodologies s hould not becompared to one another as rcia titative results may norma y bymethod. CBC W/AUTO [id number] 16:54:00 Test Item Value Reference Range Interpretation [...] 0.00 X10 3uL 0.00-0.01 N NRBC#) PROTHROMBIN [id number] 16:53:00 Test Item Value Reference Range Interpretation Comments PROTHROMBIN TIME 10.6 SECONDS 9.9-12.8 N PATIENT (test code = PTP) INTERNATIONAL NORMAL 0.9 0.89-1.14 N THE INR IS TO BE USED RATIO (test code = ONLY FOR MONITORING INR) ORAL ANTICOAGULANTTH ERAPY. THE FOLLOWING A RE SUGGESTED RANGE S FROM [facility] LEGE OF CHEST PHYSICIANS:YOLANDA CATION INR [...] D ANTIBODIES 2.5 - 3.5 THROMBOPLASTIN TIME [id number] 16:53:00 Test Item Value Reference Range Interpretation Comments THROMBOPLASTIN TIME 30.90 SECONDS 25.86-36.07 N [facility] d Lab PARTIAL (test code = Therape utic Range - PTT) APTT of 55.8-85 .4 secondscorrelat es with plasma heparin concentration o f 0.2-0.4 u/mL URINALYSIS [id number] 15:53:00 Test Item Value Reference Range Interpretation [...] >10 #/hpf code = SQU) UR HCG [id number] 15:53:00 Test Item Value Reference Range Interpretation Comments UR HCG QUAL (test code = HCGQLU) NEGATIVE NEGATIVE COMP. METABOLIC PANEL (46560)2022-10-29 21:16:00 Test Item Value Reference Range Interpretation Comments NA (test code = 140 mmol/L 135-145 5943333109) K (test code = 4.1 mmol/L 3.5-5.0 2268086066) CL (test code = 108 mmol/L 98-108 3436036975) CO2 TOTAL (test code = 25 mmol/L 23-31 0305935364) AGAP (test code = 7 2-16 1855930542) BUN (test code = 7 mg/dL 7-23 6833996374) GLUCOSE (test code = 112 mg/dL 70-110 H 1009538393) CREATININE (test code = 0.96 mg/dL 0.50-1.04 6751007662) TOTAL BILI (test code = 0.8 mg/dL 0.1-1.8 5668687638) CALCIUM (test code = 8.1 mg/dL 8.6-10.6 L 1132503563) T PROTEIN (test code = 6.3 g/dL 6.3-8.2 4641450238) ALBUMIN (test code = 4.2 g/dL 3.5-5.0 6148777196) ALK PHOS (test code = 94 U/L 34-122 5300185630) ALTv (test code = 28 U/L 5-35 1742-6) AST(SGOT) (test code = 36 U/L 13-40 2813120003) eGFR (test code = 61.8 mL/min/1.73m2 6709092422) AREN (test code = AREN) Association of [...] tests). Lab Interpretation Abnormal (test code = 70823-5) [facility] WITH [id number] 21:11:40 Test Item Value Reference Range Interpretation [...] (test code = 86.2 fL 39.0-49.9 H 73772-6) RDW-CV (test code = 22.4 % 12.0-15.5 H 788-0) PLT (test code = 151 See_Comment L [Automated 777-3) message] The sy stem which generated this result transmitted reference range : 166 - 358 10*3/ ?L. The reference r stefanie was not used to interpret this result as normal/abnormal . MPV (test code = 12.4 fL 9.5-12.9 90580-2) NRBC/100 WBC (test 0.0 See_Comment [Automat ed code = 7292448075) message] The system which generated this result transmitted reference range : 0.0 - 10.0 /100 WBCs. The refer ence range was not u sed to interpret th is result as normal/abnormal . NRBC x10^3 (test code See_Comment [Auto mated = 1972071678) message] The s ystem which generated this result transmitted reference range : 10*3/?L. The reference range was not used to interpret this result as normal/abnormal . GRAN MAT (NEUT) % 69.5 % (test code = 770-8) IMM GRAN % (test code 0.70 % = 6988995948) LYMPH % (test code = 19.9 % 736-9) MONO % (test code = 7.5 % 5905-5) EOS % (test code = 1.7 % 713-8) BASO % (test code = 0.7 % 706-2) GRAN MAT x10^3(ANC) 2.86 10*3/uL 1.88-7.09 (test code = 3226702728) IMM GRAN x10^3 (test 0.03 10*3/uL 0.00-0.06 code = 6199932566) LYMPH x10^3 (test code 0.82 10*3/uL 1.32-3.29 L = 731-0) MONO x10^3 (test code 0.31 10*3/uL 0.33-0.92 L = 742-7) EOS x10^3 (test code = 0.07 10*3/uL 0.03-0.39 711-2) BASO x10^3 (test code 0.03 10*3/uL 0.01-0.07 = 704-7) Lab Interpretation Abnormal (test code = 35404-0) [facility]$[id number] 10:00:00 Test Item Value Reference Range Interpretation Comments GLUCOSE-Q (test code 88 mg/dL 65-99 ? = 2345-7) Fasting referen ce interval UREA NITROGEN (BUN)-Q 14 mg/dL 7-25 (test code = 3094-0) CREATININE-Q (test 1.39 mg/dL 0.50-0.99 H code = 2160-0) EGFR-Q (test code = 47 See_Comment L The eGFR is based 33358-7) on the CKD-EPI 2020 equation. To calculate the n ew eGFR from a previous Creatinine or Cystatin Cresul t, go to https://www.kid ne y.org/profmis na ls/kdoqi/gfr%5F ca lculator [Automated message] The [...] . SODIUM-Q (test code = 139 mmol/L 239-498 6477-2) POTASSIUM-Q (test 3.5 mmol/L 3.5-5.3 code = 2823-3) CHLORIDE-Q (test code 105 mmol/L 98-110 = 2075-0) CARBON DIOXIDE-Q 23 mmol/L 20-32 (test code = 2028-9) CALCIUM-Q (test code 8.9 mg/dL 8.6-10.2 = 13398-8) AREN (test code = AREN) PERFORMED BY [employer] [place]; [address] [place] [address]; LORRIE QUIROZ MD Lab Interpretation Abnormal (test code = 05792-3) [facility]-Glucose [id number] 11:44:22 Test Item Value Reference Range Interpretation Comments POC-Glucose Meter (test 156 mg/dL 70-110 H : TE STED AT [facility] code = 1538) [address] [place] [address], [facility] 30: Turnstile Attendant/Techni waylon ID = [id number] for SREE MARTINEZ Lab Interpretation (test Abnormal code = 92215-5) [facility]-Glucose [id number] 11:44:22 Test Item Value Reference Range Interpretation Comments POC-Glucose Meter (test 156 mg/dL 70-110 H : TE STED AT [facility] code = 1538) [address] [place] [address], [facility] 30: Turnstile Attendant/Techni waylon ID = [id number] for SREE MARTINEZ Lab Interpretation (test Abnormal code = 14201-8) [facility]-Glucose [id number] 11:44:22 Test Item Value Reference Range Interpretation Comments POC-Glucose Meter (test 156 mg/dL 70-110 H : TE STED AT [facility] code = 1538) [address] [place] [address], [facility] 30: Turnstile Attendant/Techni waylon ID = [id number] for SREE MARTINEZ Lab Interpretation (test Abnormal code = 86434-7) [facility]-Glucose [id number] 11:44:22 Test Item Value Reference Range Interpretation Comments POC-Glucose Meter (test 156 mg/dL 70-110 H : TE STED AT [facility] code = 1538) [address] [place] [address], [facility] 30: Turnstile Attendant/Techni waylon ID = [id number] for SREE MARTINEZ Lab Interpretation (test Abnormal code = 13112-9) [facility] fyylo2354-18-34 11:44:22 Test Item Value Reference Range Interpretation Comments POC-Glucose Meter (test 156 mg/dL 70-110 H : TE STED AT [facility] code = 1538) [address] [place] [address], [facility] 30: Turnstile Attendant/Techni waylon ID = [id number] for SREE MARTINEZ Lab Interpretation (test Abnormal code = 74340-6) [facility]-Glucose [id number] 11:44:22 Test Item Value Reference Range Interpretation Comments POC-Glucose Meter (test 156 mg/dL 70-110 H : TE STED AT [facility] code = 1538) [address] [place] [address], [facility] 30: Turnstile Attendant/Techni waylon ID = [id number] for SREE MARTINEZ Lab Interpretation (test Abnormal code = 92860-3) [facility]-GLUCOSE [id number] 11:44:22 Test Item Value Reference Range Interpretation Comments POC-GLUCOSE METER 156 mg/dL 70-110 H : TESTED A T [facility] 6720 (BEAKER) (test code = [facility], 1538) [address]: Turnstile Attendant/Techni waylon ID = [id number] for SREE BLANCHARD POCT-GLUCOSE [id number] 08:01:18 Test Item Value Reference Range Interpretation Comments POC-GLUCOSE METER 116 mg/dL 70-110 H : TESTED A T [facility] 6720 (BEAKER) (test [facility] = [facility] [place] [facility], 1538) [address]: Turnstile Attendant/Techni waylon ID = [id number] for SREE BLANCHARD [id number] 05:04:32 Test Item Value Reference Range Interpretation Comments HAPTOGLOBIN (BEAKER) (test code = 30 mg/dL 14-258 366) Turnstile Attendant ID - NICHELLE LLACTATE DEHYDROGENASE (LDH)2022-10-25 04:52:08 Test Item Value Reference Range Interpretation Comments LACTATE DEHYDROGENASE (BEAKER) (test 416 U/L 125-220 H code = 635) Turnstile Attendant ID Jonathan STEWARD [id number] 04:52:07 Test Item Value Reference Range Interpretation Comments MAGNESIUM (BEAKER) (test code = 2.0 mg/dL 1.6-2.6 627) Turnstile Attendant ID Jonathan STEWARD LHEPATIC FUNCTION [id number] 04:52:07 Test Item Value Reference Range Interpretation [...] (test code = 18 U/L 6-55 347) Turnstile Attendant DORIAN STEWARD LBASIC METABOLIC [id number] 04:52:06 Test Item Value Reference Range Interpretation [...] not appl icable for dialysis patien ts Turnstile Attendant ID - PIAYA LCBC W/PLT COUNT & AUTO [id number] 04:03:09 Test Item Value Reference Range Interpretation [...] PERCENT (BEAKER) (test code = 2801) RETICULOCYTE [id number] 04:03:06 Test Item Value Reference Range Interpretation Comments RETICULOCYTE COUNT PCT (BEAKER) (test 26.7 % 0.5-1.7 H code = 575) Turnstile Attendant ID - 6000POCT-GLUCOSE [id number] 23:24:20 Test Item Value Reference Range Interpretation Comments POC-GLUCOSE METER 129 mg/dL 70-110 H : TESTED A T [facility] 6720 (BANNER) (test code = [facility], 153) [address]: Turnstile Attendant/Techni waylon ID = [id number] for ORIN BUTTS POCT-GLUCOSE [id number] 17:45:20 Test Item Value Reference Range Interpretation Comments POC-GLUCOSE METER 214 mg/dL 70-110 H : TESTED A T [facility] 6720 (BEAKER) (test code = [facility], 153) [address]: Turnstile Attendant/Techni waylon ID = [id number] for TE WILFREDO, NAVI POCT-GLUCOSE [id number] 11:53:05 Test Item Value Reference Range Interpretation Comments POC-GLUCOSE METER 154 mg/dL 70-110 H : TESTED A T [facility] 6720 (BEAKER) (test code = [facility], 153) [address]: Turnstile Attendant/Techni waylon ID = [id number] for TE WILFREDO, NAVI POCT-GLUCOSE [id number] 07:48:48 Test Item Value Reference Range Interpretation Comments POC-GLUCOSE METER 116 mg/dL 70-110 H : TESTED A T [facility] 6720 (BEAKER) (test code = [place], 1538) [address]: Turnstile Attendant/Techni waylon ID = [id number] for NAVI LOWE HEPATIC FUNCTION [id number] 04:05:23 Test Item Value Reference Range Interpretation [...] (test code = 19 U/L 6-55 347) Turnstile Attendant ID - NEELAM WSpecimen slightly ictericLACTATE DEHYDROGENASE (LDH) 2022-10-24 04:05:23 Test Item Value Reference Range Interpretation Comments LACTATE DEHYDROGENASE (BEAKER) (test 410 U/L 125-220 H code = 635) Turnstile Attendant ID Jonathan RICHTER WC-REACTIVE [id number] 04:05:23 Test Item Value Reference Range Interpretation Comments C-REACTIVE PROTEIN (BEAKER) (test 0.38 mg/dL 0.00-0.50 code = 676) Turnstile Attendant ID - NEELAM [id number] 04:05:22 Test Item Value Reference Range Interpretation Comments MAGNESIUM (BEAKER) (test code = 2.1 mg/dL 1.6-2.6 627) Turnstile Attendant ID - NEELAM WBASIC METABOLIC [id number] 04:05:22 Test Item Value Reference Range Interpretation [...] not appl icable for dialysis patien ts Turnstile Attendant ID - NEELAM WSpecimen slightly [id number] 04:00:05 Test Item Value Reference Range Interpretation Comments HAPTOGLOBIN (BEAKER) (test code = 15 mg/dL 14-258 366) Turnstile Attendant ID - ADMINCBC W/PLT COUNT & AUTO [id number] 03:40:48 Test Item Value Reference Range Interpretation [...] PERCENT (BEAKER) (test code = 2801) RETICULOCYTE [id number] 03:40:45 Test Item Value Reference Range Interpretation Comments RETICULOCYTE COUNT PCT (BEAKER) (test 25.4 % 0.5-1.7 H code = 575) [facility]stile Attendant ID - [id number]-GLUCOSE [id number] 22:02:38 Test Item Value Reference Range Interpretation Comments POC-GLUCOSE METER 142 mg/dL 70-110 H : TESTED [facility] 6720 (BEAKER) (test code = [place], 1538) [address]: [facility]stile Attendant/Techni waylon ID = [id number] for KEIRA BERG POCT-GLUCOSE [id number] 17:37:11 Test Item Value Reference Range Interpretation Comments POC-GLUCOSE METER 168 mg/dL 70-110 H : TESTED A T [facility] 6720 (RHEA) (test code = ROZ [place] [facility], 1538) [address]: Turnstile Attendant/Techni waylon ID = [id number] for NAVI LOWE POCT-GLUCOSE [id number] 12:37:13 Test Item Value Reference Range Interpretation Comments POC-GLUCOSE METER 166 mg/dL 70-110 H : TESTED A T [facility] 6720 (RHEA) (test code = ROZ [place] [facility], 1538) [address]: [facility]stile Attendant/Techni waylon ID = [id number] for NAVI LOWE Antibody [id number] 12:29:00 Test Item Value Reference Range Interpretation [...] transfus ion be required, Rh an d [place] pheno-matched, crossmatch comp atible RBCs will be is sued. Electronic Sign ature: Vik Renae M.D. [facility] [id number] 12:29:00 Test Item Value Reference Range Interpretation [...] sued. Electronic Sign ature: Vik Renae M.D. [facility] [id number] 12:29:00 Test Item Value Reference Range Interpretation [...] transfus ion be required, Rh an d [place] pheno-matched, crossmatch comp atible RBCs will be is sued. Electronic Sign ature: Vik Renae M.D. [facility] [id number] 12:29:00 Test Item Value Reference Range Interpretation [...] transfus ion be required, Rh an d [place] pheno-matched, crossmatch comp atible RBCs will be is sued. Electronic Sign ature: Vik Renae M.D. [facility] [id number] 12:29:00 Test Item Value Reference Range Interpretation [...] sued. Electronic Sign ature: Vik Renae M.[facility]. [facility] [id number] 12:29:00 Test Item Value Reference Range Interpretation [...] sued. Electronic Sign ature: Vik Renae M.D. [facility] [id number] 09:38:23 Test Item Value Reference Range Interpretation Comments POC-GLUCOSE METER 112 mg/dL 70-110 H : TESTED A T [facility] 6720 (BEAKER) (test code = [place], 1538) [address]: Turnstile Attendant/Techni waylon ID = [id number] for NAVI LOWE HEMOGLOBIN [id number] 08:54:11 Test Item Value Reference Range Interpretation Comments HEMOGLOBIN A1C < % See_Comment [Automated m essage] ELECTROPHORESIS (BEAKER) The system which (test code = 3811) generated this result transmitted ref erence range: <=5.6%. The reference range was not used to int erpret this result as normal/abnormal . "The A1c is measured using a [facility]-certified method. HbA1c value equal to or greater than 6.5% as thediagnosis cutoff for diabetes. An HbA1c value of 5.7- 6.4% indicates increased risk for diabetes (prediabetes)."Turnstile Attendant ID - ADM [id number] 05:49:52 Test Item Value Reference Range Interpretation Comments FERRITIN (BEAKER) (test code = 371.94 ng/mL 5.00-275.00 H 361) Turnstile Attendant ID - NEIL [id number] 05:24:24 Test Item Value Reference Range Interpretation Comments HAPTOGLOBIN (BEAKER) (test code = < mg/dL 14-258 L 366) [employer]stile Attendant ID - ADMINC-REACTIVE [id number] 05:15:33 Test Item Value Reference Range Interpretation Comments C-REACTIVE PROTEIN (BEAKER) (test 0.67 mg/dL 0.00-0.50 H code = 676) Turnstile Attendant ID - NEIL GHEPATIC FUNCTION [id number] 05:15:32 Test Item Value Reference Range Interpretation [...] (test code = 20 U/L 6-55 347) Turnstile Attendant ID - NEIL GLACTATE DEHYDROGENASE (LDH)2022-10-23 05:15:32 Test Item Value Reference Range Interpretation Comments LACTATE DEHYDROGENASE (BEAKER) (test 443 U/L 125-220 H code = 635) Turnstile Attendant ID - NEIL GBASIC METABOLIC [id number] 05:15:31 Test Item Value Reference Range Interpretation [...] not appl icable for dialysis patien ts Turnstile Attendant ID - NEIL [id number] 05:15:31 Test Item Value Reference Range Interpretation Comments MAGNESIUM (BEAKER) (test code = 2.1 mg/dL 1.6-2.6 627) Turnstile Attendant ID - NEIL GCBC W/PLT COUNT & AUTO [id number] 04:59:58 Test Item Value Reference Range Interpretation [...] PERCENT (BEAKER) (test code = 2801) RETICULOCYTE [id number] 04:59:04 Test Item Value Reference Range Interpretation Comments RETICULOCYTE COUNT PCT (BEAKER) (test 25.8 % 0.5-1.7 H code = 575) Turnstile Attendant ID - [id number] ID - 6000POCT-GLUCOSE [id number] 22:53:45 Test Item Value Reference Range Interpretation Comments POC-GLUCOSE METER 161 mg/dL 70-110 H : TESTED A T [facility] 6720 (BEAKER) (test code = [place], 1538) [address]: Turnstile Attendant/Techni waylon ID = [id number] for DA UPHIN, TREVOR RAD, ABDOMEN/KUB, 1 VIEW [id number] 20:13:00Reason for exam:->[facility]d [facility] 1975 Sex: FFINAL REPORT Abdomen x-ray [...] 95-100% range. PERIPHERAL BLOOD SMEAR - HOLD [id number] 13:47:13 Test Item Value Reference Range Interpretation Comments PERIPHERAL SMEAR SAVE Saved 1 slide at 1346 (BEAKER) (test code = 1815) [id number] 12:57:37 Test Item Value Reference Range Interpretation Comments HAPTOGLOBIN (BEAKER) (test code = < mg/dL 14-258 L 366) Turnstile Attendant ID - ADMINVITAMIN [id number] 12:33:39 Test Item Value Reference Range Interpretation Comments VITAMIN B12 (BEAKER) (test code = 1532 pg/mL 213-816 H 774) Turnstile Attendant ID - [id number] 12:33:39 Test Item Value Reference Range Interpretation Comments FERRITIN (BEAKER) (test code = 418.77 ng/mL 5.00-275.00 H 361) Turnstile Attendant ID - [id number] 12:15:37 Test Item Value Reference Range Interpretation Comments MAGNESIUM (BEAKER) (test code = 2.0 mg/dL 1.6-2.6 627) Turnstile Attendant ID - ADMINBILIRUBIN, [id number] 12:15:37 Test Item Value Reference Range Interpretation Comments BILIRUBIN DIRECT (BEAKER) (test 0.6 mg/dL 0.1-0.5 H code = 706) Turnstile Attendant ID - ADMINLACTATE DEHYDROGENASE (LDH)2022-10-22 12:15:37 Test Item Value Reference Range Interpretation Comments LACTATE DEHYDROGENASE (BEAKER) (test 460 U/L 125-220 H code = 635) Turnstile Attendant ID - ADMINCOMPREHENSIVE METABOLIC [id number] 12:15:36 Test Item Value Reference Range Interpretation [...] not appl icable for dialysis patien ts Turnstile Attendant ID - ADMINIRON, TIBC, % SAT. (WITHOUT FERRITIN)2022-10-22 12:07:17 Test Item Value Reference Range Interpretation Comments IRON (BEAKER) (test code = 547) 86.0 ug/dL 40.0-160.0 TOTAL IRON BINDING CAPACITY 306 ug/dL 250-450 (BEAKER) (test code = 769) IRON % SATURATION (2) (BEAKER) 28 % 20-55 (test code = 2590) Turnstile Attendant ID - ADMINRETICULOCYTE [id number] 12:06:15 Test Item Value Reference Range Interpretation Comments RETICULOCYTE COUNT PCT (BEAKER) (test 24.8 % 0.5-1.7 H code = 575) Turnstile Attendant ID - [id number] ID - [id number]/[id number] 12:02:33 Test Item Value Reference Range Interpretation [...] mechanical heart valves.CBC W/PLT COUNT & AUTO [id number] 12:00:27 Test Item Value Reference Range Interpretation [...] 0.00-1.00 PERCENT (BEAKER) (test code = 2801) [id number] 11:58:50 Test Item Value Reference Range Interpretation Comments FIBRINOGEN LEVEL (BEAKER) (test 285 mg/dl 225-434 code = 658) THYROID STIMULATING [id number] 04:51:23 Test Item Value Reference Range Interpretation Comments TSH (test code = See_Comment Biotin has been [id number]) reported to cau se a negative bias, interpret resul ts relative to pat ient's use of biotin. [Automated mess age] The system [employer] generated this result transmitted ref erence range: 0.45 - 4 .70 mIU/L. The refe rence range was not u sed to interpret this result as normal/abnor mal. Lab Interpretation (test Normal code = 49398-4) [facility] [id number] 04:26:53 Test Item Value Reference Range Interpretation Comments FREE T4 (test code = See_Comment [Autom ated message] [id number]) The system [employer] generated this result transmitted ref erence range: 0.78 - 2 .20 ng/dL:. The ref erence range was not u sed to interpret this result as normal/abnor mal. Lab Interpretation (test Normal code = 27448-2) [facility]. METABOLIC PANEL (57913)2022-10-18 23:04:17 Test Item Value Reference Range Interpretation Comments NA (test code = 141 mmol/L 135-145 1618045455) K (test code = 5.1 mmol/L 3.5-5.0 H 0985461411) CL (test code = 109 mmol/L 98-108 H 2340354914) CO2 TOTAL (test code = 21 mmol/L 23-31 L 1167227424) AGAP (test code = 2-16 8973227721) BUN (test code = 7 mg/dL 7-23 4897644558) GLUCOSE (test code = 104 mg/dL 70-110 5396263487) CREATININE (test code = 1.41 mg/dL 0.50-1.04 H 9840309970) TOTAL BILI (test code = 0.8 mg/dL 0.1-1.8 2672155011) CALCIUM (test code = 9.1 mg/dL 8.6-10.6 6980472373) T PROTEIN (test code = 7.5 g/dL 6.3-8.2 4546368985) ALBUMIN (test code = 5.0 g/dL 3.5-5.0 2523483625) ALK PHOS (test code = 139 U/L 34-122 H 1773346479) ALTv (test code = 28 U/L 5-35 1742-6) AST(SGOT) (test code = 34 U/L 13-40 9378612473) eGFR (test code = mL/min/1.73m2 9719274084) AREN (test code = AREN) Association of [...] tests). Lab Interpretation Abnormal (test code = 95538-9) [facility] Test Item Value Reference Range Interpretation Comments LIPASE (test code = 9952965602) 97 U/L 0-220 Lab Interpretation (test code = Normal 20704-9) [facility] [id number] 22:34:52 Test Item Value Reference Range Interpretation Comments WBC (test code = See_Comment L [Automated 3890-2) message] The sy stem which generated this result transmitted reference range : 4.30 - 11.10 10*3/?L. The reference range was not used to interpret this result as normal/abnormal . RBC (test code = See_Comment L [Automated 089-8) message] The sy stem which generated this [...] (test code = 76.8 fL 39.0-49.9 H 41905-1) RDW-CV (test code = 22.1 % 12.0-15.5 H 788-0) PLT (test code = See_Comment [Automated 777-3) message] The sy stem which generated this result transmitted reference range : 166 - 358 10*3/ ?L. The reference r stefanie was not used to interpret this result as normal/abnormal . MPV (test code = 12.4 fL 9.5-12.9 09427-3) NRBC/100 WBC (test See_Comment [Automat ed code = 1392534767) message] The system which generated this result transmitted reference range : 0.0 - 10.0 /100 WBCs. The refer ence range was not u sed to interpret th is result as normal/abnormal . NRBC x10^3 (test code See_Comment [Auto mated = 7314950587) message] The s ystem which generated this result transmitted reference range : 10*3/?L. The reference range was not used to interpret this result as normal/abnormal . GRAN MAT (NEUT) % 63.1 % (test code = 770-8) IMM GRAN % (test code 1.30 % = 0443208292) LYMPH % (test code = 26.3 % 736-9) MONO % (test code = 6.4 % 5905-5) EOS % (test code = 2.1 % 713-8) BASO % (test code = 0.8 % 706-2) GRAN MAT x10^3(ANC) 2.45 10*3/uL 1.88-7.09 (test code = 8724689386) IMM GRAN x10^3 (test 0.05 10*3/uL 0.00-0.06 code = 0447349354) LYMPH x10^3 (test code 1.02 10*3/uL 1.32-3.29 L = 731-0) MONO x10^3 (test code 0.25 10*3/uL 0.33-0.92 L = 742-7) EOS x10^3 (test code = 0.08 10*3/uL 0.03-0.39 711-2) BASO x10^3 (test code 0.03 10*3/uL 0.01-0.07 = 704-7) Lab Interpretation Abnormal (test code = 18139-3) [facility] [id number] 22:15:00 Test Item Value Reference Range Interpretation Comments POCT PREG (test code = 1605) NEgative On board controls acceptable with C pass Line (test code = 3574) POCT PREG LOT # (test code = 3575) [id number] POCT PREG TEST DATE (test code = 3576) Lab Interpretation (test code = Normal 14028-7) [facility] URINALYSIS, [id number] 16:16:00 Test Item Value Reference Range Interpretation [...] APPEAR (test code slightly cloudy = 3267) [facility] URINALYSIS, [id number] 16:16:00 Test Item Value Reference Range Interpretation [...] APPEAR (test code slightly cloudy = 3267) [facility] HEMOGLOBIN A1C [id number] 14:54:00 Test Item Value Reference Range Interpretation Comments POCT HBA1C (test code = 4548-4) 4.6 % 4-6 [facility] HEMOGLOBIN A1C [id number] 14:54:00 Test Item Value Reference Range Interpretation Comments POCT HBA1C (test code = 4548-4) 4.6 % 4-6 [facility] GLUCOSE (AUTOMATED)2022-03-02 13:11:54 Test Item Value Reference Range Interpretation Comments POCT GLU (test code = 2724052488) 137 mg/dL 70-110 H Lab Interpretation (test code = Abnormal 89589-5) [facility] GLUCOSE (AUTOMATED)2022-03-02 13:11:54 Test Item Value Reference Range Interpretation Comments POCT GLU (test code = 3440266484) 137 mg/dL 70-110 H Lab Interpretation (test code = Abnormal 12299-7) [facility] [id number] 12:59:00 Test Item Value Reference Range Interpretation Comments POCT Glu (age>30days) (test code = 137 mg/dL 70-110 A 3342) Lab Interpretation (test code = Abnormal 97648-7) [facility] [id number] 12:59:00 Test Item Value Reference Range Interpretation Comments POCT Glu (age>30days) (test code = 137 mg/dL 70-110 A 3342) Lab Interpretation (test code = Abnormal 07007-1) [facility] [id number] 12:48:00 Test Item Value Reference Range Interpretation Comments POCT PREG (test code = 1605) Negative On board controls acceptable with Yes C Line (test code = 3574) POCT PREG LOT # (test code = 3575) [id number] POCT PREG TEST DATE (test 2023-06-25 code = 3576) [facility] [id number] 12:48:00 Test Item Value Reference Range Interpretation Comments POCT PREG (test code = 1605) Negative On board controls acceptable with Yes C Line (test code = 3574) POCT PREG LOT # (test code = 3575) [id number] POCT PREG TEST DATE (test 2023-06-25 code = 3576) [facility]
[2023-07-31 00:40] LABS: Urine Bacteria <20 /HPF (<20); Urine Bilirubin NEGATIVE (Negative); Urine Blood 1+ (Negative); Urine Clarity Extremely Turbid (Clear); Urine Color Light-Orange (Yellow); Urine Glucose NEGATIVE (Negative); Urine Mucus Slight /HPF (None Seen); Urine Protein 1+ (Negative); Urine RBC 21-50 /HPF (None Seen); Urine Urobilinogen Normal (Normal); Urine WBC Clump Many /HPF (None Seen)
[2023-07-31 00:50] LABS: Absolute Lymphocytes (CBC) 0.6 K/uL (0.7-4.9); Hematocrit 25.1 % (36.0-45.0); Lymphocytes % 10.3 % (15.3-44.8); MCV 96.6 fL (80-100); MPV 7.5 fL (7.6-11.3); Platelets 297 thou/uL (152-406)
[2023-07-31 00:56] LABS: Protime INR 1.22
[2023-07-31 01:23] LABS: Albumin 1.8 g/dL (3.4-5.0); Bilirubin Total 0.5 mg/dL (0.2-1.0); Potassium 3.9 mEq/L (3.5-5.1); Protein, Total 4.8 g/dL (6.4-8.2)
[2023-07-31] MEDS ORDERED: NA CHLORIDE 0.9% 2,000 ML ONE (01:33)
[2023-07-31] MEDS ORDERED: CEFTRIAXONE 1000 MG/VIAL ONE (01:48)
--- NOTE | 2023-07-31 01:53 | ER ---
Nurse's Notes [facility] Name: Linda Rahman Age: 47 yrs Sex: Female : 1975 Arrival Date: 07/30/2023 Time: 22:41 Bed 4 Private MD: Diagnosis: Muscle weakness (generalized);Dehydration, volume depletion, hypoalbuminemia, dehydration and generalized weakness Presentation: 07/30 22:44 Chief complaint: EMS states: pt is from [facility], pt stated she feels lg3 dehydrated, dizzy. pt called 911. VS stable. Coronavirus screen: At this time, the client does not indicate any symptoms associated with coronavirus-19. Ebola Screen: No symptoms or risks identified at this time. Initial Sepsis Screen: Does the patient meet any 2 criteria? No. Patient's initial sepsis screen is negative. Does the patient have a suspected source of infection? No. Patient's initial sepsis screen is negative. Risk Assessment: Do you want to hurt yourself or someone else? Patient reports no desire to harm self or others. Onset of symptoms was July 30, 2023. 22:44 Method Of Arrival: EMS: [facility] lg3 22:44 Acuity: HOLLEY 3 lg3 Triage Assessment: 22:46 General: Appears comfortable, Behavior is calm, cooperative. Pain: Denies pain. Neuro: lg3 Level of Consciousness is awake, alert, obeys commands, Oriented to person, place, time, situation. Cardiovascular: Capillary refill < 3 seconds Patient's skin is warm and dry. Respiratory: Airway is patent Respiratory effort is even, unlabored. Derm: Skin is intact. 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/31 03:25 LMP N/A - Post-menopause, Not la4 Historical: - Allergies: 07/30 22:46 Amoxicillin; lg3 22:46 Codeine; lg3 22:46 Demerol; lg3 22:46 Geodon; lg3 22:46 Meclizine; lg3 22:46 Tessalon Perles; lg3 - Home Meds: 07/31 03:25 levothyroxine 50 mcg cap [Active]; citalopram oral [Active]; Buspirone Oral [Active]; la4 - PMHx: 07/30 22:46 Anemia; angina pectoris; angina pectoris; Anxiety; Asthma; Chronic Abdominal Pain; lg3 Depression; diabetes mellitus; Hypertensive disorder; Hypothyroidism; Migraine; - PSHx: 22:46 Cholecystectomy; tubal ligation; lg3 - Immunization history:: Adult Immunizations up to date. - Social history:: Smoking status: Patient denies any tobacco usage or history of. - Family history:: not pertinent. - Code Status:: Full code. Screenin:01 [facility] ED Fall Risk Assessment (Adult) History of falling in the last 3 months, me1 including since admission No falls in past 3 months (0 pts) Confusion or Disorientation No (0 pts) Intoxicated or Sedated No (0 pts) Impaired Gait Yes (1 pt) Mobility Assist Device Used Yes (1 pt) Altered Elimination Yes (1 pt) Score/Fall Risk Level 3 or more points = High Risk Maintained a safe environment, Provided non-skid footwear, Hourly rounding (assess needs \T\ fall precautionary measures) done, Used ambulatory aids as needed (educated on \T\ assisted with). Abuse screen: Denies threats or abuse. Nutritional screening: No deficits noted. Tuberculosis screening: No symptoms or risk factors identified. Assessment: 23:01 General: Appears comfortable, well groomed, well developed, well nourished, Behavior is me1 calm, cooperative, appropriate for age, Reports pt is from [facility], pt stated she feels dehydrated, dizzy. pt called 911. VS stable. States output from her ileostomy has been watery so she is concerned about dehydration. Pain: Denies pain. Neuro: Level of Consciousness is awake, alert, obeys commands, Oriented to person, place, time, situation, Appropriate for age. Cardiovascular: Capillary refill < 3 seconds Patient's skin is warm and dry. Respiratory: Airway is patent Respiratory effort is even, unlabored, Respiratory pattern is regular, symmetrical. GI: Ileostomy site is clean and dry. is intact. 07/31 03:05 Reassessment: No changes from previously documented assessment. Patient and/or family vc1 updated on plan of care and expected duration. Pain level reassessed. Patient is alert, oriented x 3, equal unlabored respirations, skin warm/dry/pink. Vital Signs: 07/30 22:44 BP 108 / 74; Pulse 68; Resp 16; Temp 98.7; Pulse Ox 100% on R/A; lg3 23:15 Weight 66 kg; me1 07/31 01:26 BP 106 / 75; Pulse 109; Resp 18; Pulse Ox 98% on R/A; me1 03:04 BP 96 / 71; Pulse 117; Resp 12; Pulse Ox 100% ; vc1 ED Course: 07/30 22:42 Patient arrived in ED. rv1 22:46 Triage completed. lg3 22:46 Arm band placed on left wrist. lg3 22:52 Slick Garcia MD is Attending Physician. sp4 23:00 Cortney Gleason, ABDULLAHI is Primary Nurse. me1 23:01 Patient has correct armband on for positive identification. Bed in low position. Call me1 light in reach. Side rails up X2. Provided Education on: POC. Verbalized understanding. . 23:01 No provider procedures requiring assistance completed. me1 23:18 Chest Single View XRAY In Process Unspecified. EDMS 07/31 01:52 Sebastian Terry MD is Hospitalizing Provider. sp4 02:00 Report received from ABDULLAHI Barr. vc1 03:05 Vazquez cath inserted, using sterile technique, 16 Fr., by ms, balloon inflated, to vc1 gravity drainage, returned marta urine. Patient tolerated well. Vazquez cath removed intact, balloon deflated, removed vazquez she arrived with a replaced with new one. 03:25 Patient admitted, IV remains in place. la4 Administered Medications: 01:18 Drug: NS 0.9% IV (30 ml/kg) 30 ml/kg IV at bolus once; Sepsis Protocol Route: IV; Rate: me1 bolus; Site: left upper arm; 01:39 Drug: Rocephin - Rocephin (cefTRIAXone) IVPB 1 grams IVPB once over 30 mins; (mix in 50 me1 mL NS) Route: IVPB; Infused Over: 30 mins; Site: left upper arm; 03:00 Drug: Albumin IVPB 25 grams 100 ml IVPB once; (Note: Albumin 25% concentration) Volume: la4 100 ml; Route: IVPB; Site: left antecubital; 03:25 Drug: Albumin IVPB 25 grams 100 ml IVPB once; (Note: Albumin 25% concentration) Volume: la4 100 ml; Route: IVPB; Site: left antecubital; Medication: 11/04 23:01 VIS not applicable for this client. me1 Outcome: 07/31 01:53 Decision to Hospitalize by Provider. sp4 03:24 Admitted to Med/surg accompanied by nurse, via stretcher, room 231, Report called to mali Piper RN 03:24 Condition: improved 03:24 Instructed on the need for admit, 04:03 Patient left the ED. vc1 Signatures: Dispatcher [employer] EDEmily Cuevas, RN RN lg3 Amber Leiva RN RN vc1 Moraima Hernandes Sergey, MD MD sp4 Cortney Gleason RN RN me1 Lisha Stoddard RN RN coretta4 Corrections: (The following items were deleted from the chart) 07/30 23:01 22:44 Chief complaint: EMS states: pt is from [facility], pt stated she me1 feels dehydrated, dizzy. pt called 911. VS stable. lg3
--- NOTE | 2023-07-31 01:53 | EDPHYS ---
Physician Documentation [facility] Name: Linda Rahman Age: 47 yrs Sex: Female : 1975 Arrival Date: 07/30/2023 Time: 22:41 Bed 4 Private MD: ED Physician Slick Garcia HPI: 07/30 22:54 This 47 yrs old Female presents to ER via EMS with complaints of Dehydration sp4 and feeling unwell . 07/31 01:14 Patient is a 47-year-old female with extensive past medical history hypertension, sp4 [id number] diabetes mellitus, asthma, hypothyroidism anemia also colostomy indwelling Capone catheter and bedbound female presents today with her overall feeling unwell and feeling dehydrated. Patient reported watery output from the colostomy. It is reported that the patient is allergic to multiple antibiotics amoxicillin, Demerol, Geodon, meclizine, diphenhydramine, lorazepam, Geodon, amoxicillin, Tessalon, additional past medical history includes type 2 diabetes, pernicious anemia asthma major depression hypothyroidism anxiety neuropathy hypertension high cholesterol sleep apnea cholecystectomy tubal ligation splenectomy. Patient's medications include amitriptyline, citalopram, Synthroid, Flexeril, Lyrica, Crestor, albuterol, buspirone, fluticasone, docusate, losartan, metformin, Myrbetriq, Protonix, Ozempic, Carafate, vitamin C, BuSpar, vitamin D3, B12, diltiazem, doxycycline, folic acid, magnesium, Topamax. . 01:32 Patient was admitted here on 12/16/2022. 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 Patient had to be transferred to [facility]. Her hospital stay [facility] was complicated by colonic perforation that caused partial colectomy with diversion colostomy. Since then patient developed severe physical deconditioning and was not able to walk she is bedbound now with indwelling Capone catheter. . 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: 03:25 LMP N/A - Post-menopause, Not la4 Historical: - Allergies: 07/30 22:46 Amoxicillin; lg3 22:46 Codeine; lg3 22:46 Demerol; lg3 22:46 Geodon; lg3 22:46 Meclizine; lg3 22:46 Tessalon Perles; lg3 - Home Meds: 07/31 03:25 levothyroxine 50 mcg cap [Active]; citalopram oral [Active]; Buspirone Oral [Active]; la4 - PMHx: 07/30 22:46 Anemia; angina pectoris; angina pectoris; Anxiety; Asthma; Chronic Abdominal Pain; lg3 Depression; diabetes mellitus; Hypertensive disorder; Hypothyroidism; Migraine; - PSHx: 22:46 Cholecystectomy; tubal ligation; lg3 - Immunization history:: Adult Immunizations up to date. - Social history:: Smoking status: Patient denies any tobacco usage or history of. - Family history:: not pertinent. - Code Status:: Full code. ROS: 07/31 01:33 Constitutional: Positive generalized weakness and feeling unwell. sp4 Exam: 01:17 ECG was reviewed by the Attending Physician. EKG time 0 134, sinus tachycardia at a sp4 rate of 103, no ST elevation or depression, premature ventricular contractions, PVCs in a bigeminy pattern. Right bundle branch block. Otherwise no sign of ischemia 01:33 Constitutional: This is a well developed, well nourished patient who is awake, alert, sp4 patient has moderate to severe physical deconditioning, signs of prolonged immobility, indwelling Capone catheter, right lower quadrant diversion colostomy. Chronic sacral stage I decubitus ulcer. Head/Face: Normocephalic, atraumatic. Eyes: Pupils equal round and reactive to light, extra-ocular motions intact. Lids and lashes normal. Conjunctiva and sclera are not injected. Cornea within normal limits. Periorbital areas with no swelling, redness, or edema. ENT: Nares patent. No nasal discharge, no septal abnormalities noted. Tympanic membranes are normal and external auditory canals are clear. Oropharynx with no redness, swelling, or masses, exudates, or evidence of obstruction, uvula midline. Mucous membranes moist. Neck: Trachea midline, no thyromegaly or masses palpated, and no cervical lymphadenopathy. Supple, full range of motion without nuchal rigidity, or vertebral point tenderness. Chest/axilla: Normal chest wall appearance and motion. Nontender with no deformity. No lesions are appreciated. Cardiovascular: Regular rate and rhythm with a normal S1 and S2. No gallops, murmurs, or rubs. Normal PMI, no JVD. No pulse deficits. Respiratory: Lungs have equal breath sounds bilaterally, clear to auscultation and percussion. No rales, rhonchi or wheezes noted. No increased work of breathing, no retractions or nasal flaring. Abdomen/GI: Soft, non-tender, with normal bowel sounds. No distension or tympany. No guarding or rebound. No evidence of tenderness throughout. Right lower quadrant bolus and colostomy there is secondary stoma as reported by the patient and his son is used for gas venting. Patient has soft nontender abdomen. Back: No spinal tenderness. No costovertebral tenderness. There is sacral stage I decubitus ulcer Skin: Warm, dry with normal turgor. Normal color with no rashes, no lesions, and no evidence of cellulitis. MS/ Extremity: Pulses equal, no cyanosis. Neurovascular intact. Full, normal range of motion. Neuro: Awake and alert, GCS 15, oriented to person, place, time, and situation. Cranial nerves II-XII grossly intact. Sensory grossly intact. Diffuse bilateral lower extremity atrophy from immobility, exam is limited secondary to prolonged immobility, no new neurologic deficits reported Psych: Awake, alert, with orientation to person, place and time. Behavior, mood, and affect are within normal limits Vital Signs: 07/30 22:44 BP 108 / 74; Pulse 68; Resp 16; Temp 98.7; Pulse Ox 100% on R/A; lg3 23:15 Weight 66 kg; me1 07/31 01:26 BP 106 / 75; Pulse 109; Resp 18; Pulse Ox 98% on R/A; me1 03:04 BP 96 / 71; Pulse 117; Resp 12; Pulse Ox 100% ; vc1 MDM: 07/30 22:53 Patient medically screened. sp4 07/31 01:32 ED course: Chest x-ray- EXAM DESCRIPTION: Chest Single View CLINICAL HISTORY:47 years sp4 Female, CHEST PAIN Comparison: Chest radiograph dated 12/16/2022 IMPRESSION: No focal consolidation. Unchanged prominence of the interstitium. No pleural effusion. No pneumothorax. Cardiomediastinal silhouette is within normal limits. No acute osseous abnormality. . 01:53 Differential Diagnosis altered mental status, sepsis, flu. Data reviewed: vital signs, sp4 nurses notes, EMS record, old medical records, lab test result(s), EKG, radiologic studies, plain films. 07/30 22:53 Order name: Blood Culture Adult (2) [facility] 07/30 22:53 Order name: CBC with Diff; Complete Time: 01: [facility] 07/30 22:53 Order name: CMP; Complete Time: : [facility] 07/30 22:53 Order name: Lactate w/ 2H reflex if indic.; Complete Time: : [facility] 07/30 22:53 Order name: Protime (+inr); Complete Time: : [facility] 07/30 22:53 Order name: Ptt, Activated; Complete Time: : [facility] 07/30 22:53 Order name: Urinalysis w/ reflexes; Complete Time: : [facility] 07/30 22:53 Order name: COVID-19 SARS RT PCR; Complete Time: : [facility] 07/30 22:53 Order name: Influenza Screen (a \T\ B); Complete Time: : [facility] 07/31 00:46 Order name: Urine Culture EDMS 07/31 02:38 Order name: CBC with Automated Diff EDMS 07/31 02:38 Order name: CBC with Automated Diff EDMS 07/31 02:38 Order name: Comprehensive Metabolic Panel [facility] 07/31 02:38 Order name: Comprehensive Metabolic Panel [facility] 07/30 22:53 Order name: Chest Single View XRAY [facility] 07/30 22:53 Order name: EKG; Complete Time: 22:54 [facility] 07/30 22:53 Order name: Accucheck; Complete Time: : [facility] 07/30 22:53 Order name: Cardiac monitoring; Complete Time: 01: [facility] 07/30 22:53 Order name: Cath; Complete Time: 03:15 [facility] 07/30 22:53 Order name: EKG - Nurse/Tech; Complete Time: : [facility] 07/30 22:53 Order name: IV Saline Lock - Large Bore; Complete Time: [facility] 07/30 22:53 Order name: Labs collected and sent; Complete Time: : [facility] 07/30 22:53 Order name: O2 Per Protocol; Complete Time: [facility] 07/30 22:53 Order name: O2 Sat Monitoring; Complete Time: 01:26 sp4 07/30 22:53 Order name: Vital Signs; Complete Time: sp4 EC:17 Rate is 103 beats/min. Rhythm is regular, Sinus tachycardia with Occasional PVCs. QRS sp4 Presto is Normal. [place] interval is normal. QRS interval is prolonged. QT interval is normal. No Q waves. No ST changes noted. Clinical impression: No evidence of ischemia. Interpreted by me. Reviewed by me. Administered Medications: :18 Drug: NS 0.9% IV (30 ml/kg) 30 ml/kg IV at bolus once; Sepsis Protocol Route: IV; Rate: me1 bolus; Site: left upper arm; 01:39 Drug: Rocephin - Rocephin (cefTRIAXone) IVPB 1 grams IVPB once over 30 mins; (mix in 50 me1 mL NS) Route: IVPB; Infused Over: 30 mins; Site: left upper arm; 03:00 Drug: Albumin IVPB 25 grams 100 ml IVPB once; (Note: Albumin 25% concentration) Volume: la4 100 ml; Route: IVPB; Site: left antecubital; 03:25 Drug: Albumin IVPB 25 grams 100 ml IVPB once; (Note: Albumin 25% concentration) Volume: la4 100 ml; Route: IVPB; Site: left antecubital; Disposition Summary: 07/31/23 01:53 Hospitalization Ordered Notes: Hospitalization Status: Inpatient Admission sp4 Provider: Sebastian Terry Location: Telemetry/[facility] (Inpatient) sp4 Condition: Stable sp4 Problem: new sp4 Symptoms: have improved sp4 Bed/Room Type: Standard sp4 Room Assignment: 231(07/31/23 02:41) mw Diagnosis - Muscle weakness (generalized) sp4 - Dehydration, volume depletion, hypoalbuminemia, dehydration and generalized weaknesssp4 Forms: - Medication Reconciliation Form sp4 - SBAR form sp4 - Leadership Thank You Letter sp4 Signatures: Dispatcher [employer] Tara Smith RN RN mw Emily Knapp RN RN lg3 Slick Garcia MD MD sp4 Cortney Gleason RN RN me1 Lisha Stoddard RN ABDULLAHI la4 Corrections: (The following items were deleted from the chart) 02:41 01:53 sp4 mw
[2023-07-31] MEDS ORDERED: ONDANSETRON 4 MG/2 ML VIAL IV PRN (02:32)
--- NOTE | 2023-07-31 02:32 | P.HP ---
Certification for Inpatient Patient admitted to: Inpatient With expected LOS: >2 Midnights Patient will require the following post-hospital care: None Practitioner: I am a practitioner with admitting privileges, knowledge of patient current condition, hospital course, and medical plan of care. Services: Services provided to patient in accordance with Admission requirements found in Title 42 Section 412.3 of the Code of Federal Regulations Patient History Date of Service: 07/31/23 Reason for admission: Generalized weakness, Fatigue , chills History of Present Illness: 47-year-old female with extensive past medical history hypertension, chf-vmhboob-reunbpgmy diabetes mellitus, asthma, hypothyroidism anemia, colostomy , indwelling Capone catheter, hypothyroidism, pernicious anemia, sleep apnea depression and bed bound presents today with her overall feeling unwell and feeling dehydrated. Patient also states that she was having chills but no subjective fever. Denies any nausea vomiting. Patient reported watery output from the colostomy.Patient was admitted here on 12/16/2022. Patient developed hemolytic anemia with warm antibodies. Patient had to be transferred to [facility]. Her hospital stay was complicated by colonic perforation which required partial colectomy with diversion colostomy. Since then patient developed severe physical deconditioning and was not able to walk she is bedbound now with indwelling Capone catheter. . Patient was assessed in the ER and was found to be dehydrated and also had a UTI and was admitted for further management Allergies amoxicillin [Amoxicillin] Allergy (Mild, Verified 12/16/22 03:18) Hives benzonatate [From Tessalon Perles] Allergy (Verified 12/16/22 03:18) Itching/Hives/Rash meperidine HCl [From Demerol] Allergy (Verified 12/16/22 03:18) Itching/Hives/Rash ziprasidone HCl [From Geodon] Allergy (Verified 12/16/22 03:18) Itching meclizine Adverse Reaction (Intermediate, Verified 12/16/22 03:18) Itching diphenhydramine [From Benadryl] Adverse Reaction (Verified 12/16/22 03:18) Anaphylaxis lorazepam Adverse Reaction (Verified 12/16/22 03:18) Anaphylaxis ziprasidone mesylate [From Geodon] Adverse Reaction (Verified 12/16/22 03:18) Anaphylaxis - Past Medical/Surgical History Diabetic: Yes Past Medical History: Reviewed- Non-Contributory -: type 2 diabetes -: pernicious anemia -: asthma -: major depression -: hypothyroidism -: anxiety -: neuropathy -: hypertension -: high cholesterol -: learning disability -: sleep apnea -: sleep apnea Past Surgical History: Reviewed- Non-Contributory -: cholecystecomy -: tubal ligation -: splenectomy Psychosocial/ Personal History: Patient is on disability, lives at home with her family - Family History Mother -: Hypertension, Kidney disease Notes: celiac, oa, Father -: Hypertension, Diabetes, Other (see notes) Notes: high cholesterol - Social History Smoking Status: Never smoker Alcohol use: No CD- Drugs: No Caffeine use: Yes Review of Systems 10-point ROS is otherwise unremarkable General: Chills, Weakness, Malaise Eyes: Unremarkable ENT: Unremarkable Respiratory: Unremarkable Cardiovascular: Unremarkable Gastrointestinal: Abdominal Pain, Diarrhea Genitourinary: Unremarkable Musculoskeletal: Unremarkable Integumentary: Unremarkable Neurological: Unremarkable Physical Examination - Vital Signs Temperature: 98.9 F Blood Pressure: 142/78 Pulse: 82 Respirations: 18 Pulse Ox (%): 98 - Physical Exam General: Alert, Oriented x3, Obese HEENT: Atraumatic, Normocephalic Neck: Supple Respiratory: Clear to auscultation bilaterally, Normal air movement Cardiovascular: Regular rate/rhythm, Normal S1 S2 Capillary refill: <2 Seconds Gastrointestinal: Soft and benign, W/out hepatosplenomegaly, Other (Colostomy ) Musculoskeletal: No clubbing, No swelling, Contractures Integumentary: No rashes Neurological: Other (Alert, Awake ,) Lymphatics: No axilla or inguinal lymphadenopathy Urinary: Capone catheter - Studies Laboratory Data (last 24 hrs) 07/31/23 07/31/23 07/31/23 00:27 00:27 00:27 WBC 5.80 Hgb 8.8 L Hct 25.1 L Plt Count 297 PT 13.4 H INR 1.22 APTT 36.5 Sodium 138 Potassium 3.9 BUN 10 Creatinine 0.77 Glucose 92 Total Bilirubin 0.5 AST 11 L ALT 12 L Alkaline Phosphatase 158 H Microbiology Data (last 24 hrs): 07/30/23 23:09 Nasopharnyx Influenza Type A Antigen Screen - Final 07/30/23 23:09 Nasopharnyx Influenza Type B Antigen Screen - Final Assessment and Plan - Problems (Diagnosis) (1) UTI (urinary tract infection) Current Visit: No Status: Acute Plan: Started on IV antibiotics We will obtain cultures We will change antibiotic as per sensitivity Changed to Capone in ER Qualifiers: Urinary tract infection type: acute cystitis Hematuria presence: without hematuria Qualified Code(s): N30.00 - Acute cystitis without hematuria (2) Dehydration Current Visit: Yes Status: Acute Plan: IV hydration Monitor volume status Possibly due to UTI and diarrhea (3) Diarrhea Current Visit: Yes Status: Acute Plan: Was started on Flagyl Monitor closely Lomotil as needed (4) Generalized weakness Current Visit: No Status: Acute Plan: Possibly multifactorial Possibly due to UTI/diarrhea/dehydration Supportive management for now Patient may need PT OT evaluation (5) Anemia Current Visit: No Status: Chronic Plan: Monitor CBC daily Transfuse as needed if hemoglobin less than 7 Qualifiers: Anemia type: unspecified type Qualified Code(s): D64.9 - Anemia, unspecified (6) Asthma Current Visit: No Status: Chronic Plan: Continue home medications and titrate as needed Bronchodilators as needed Qualifiers: (7) Bipolar disorder Current Visit: No Status: Chronic Plan: Continue home medications Titrate as needed Qualifiers: Active/Remission status: remission status unspecified Qualified Code(s): F31.9 - Bipolar disorder, unspecified (8) Obesity Current Visit: No Status: Chronic Plan: Advise lifestyle modification Qualifiers: Obesity type: due to excess calories Obesity classification: adult class 3 (BMI >= 40) Serious obesity comorbidity presence: without serious comorbidity Body mass index: BMI 40.0-44.9 (9) Type 2 diabetes mellitus Current Visit: No Status: Chronic Plan: Insulin sliding scale Basal insulin as needed We will get an A1c in a.m. Accu-Chek before every meal and at bedtime Qualifiers: Diabetes mellitus intermodal customer service insulin use: without detention use Diabetes mellitus complication status: with hyperglycemia Qualified Code(s): E11.65 - Type 2 diabetes mellitus with hyperglycemia (10) Functional quadriplegia Current Visit: Yes Status: Chronic Plan: Patient is bedbound Supportive management PT OT evaluation in a.m. Discharge Plan: Home - Advance Directives Does patient have a Living Will: No Does patient have a Durable POA for Healthcare: No - Code Status/Comfort Care Code Status: Full Code Physician Review: Patient Assessed, Agree with Above Assessment and Plan Time Spent Managing Pts Care (In Minutes): 48
[2023-07-31] MEDS ORDERED: ALBUMIN HUMAN 25% 50 ML IV ONE ×2 (03:16→03:31)
[2023-07-31 04:40] VITALS: BMI 19.3
[2023-07-31] MEDS: NA CHLORIDE 0.9% 1,000 ML IV SCH ×3 (04:58→23:01)
[2023-07-31] MEDS: INSULIN REGULAR (HUMAN) 100 UNIT/ML SQ SCH ×4 (07:30→21:00)
[2023-07-31] MEDS: METRONIDAZOLE 500mg IVPB 500 MG/100 ML BAG IV SCH ×2 (09:53→16:23)
[2023-07-31] MEDS: CEFTRIAXONE 1,000 MG in NA CHLORIDE 0.9% 50 ML IVPB SCH (09:54)
[2023-07-31] MEDS: ACETAMINOPHEN 500 MG TAB PO PRN (11:48)
[2023-07-31] MEDS ORDERED: INFLUENZA VACCINE (for 6+ mo) 0.5 ML DOSE IMVAC ONE (12:00)
--- NOTE | 2023-07-31 14:18 | RAD REPORT ---
EXAM DESCRIPTION: RAD - Chest Single View - 07/30/2023 11:16 pm CLINICAL HISTORY: 7 years Female, CHEST PAIN COMPARISON: Chest radiograph dated 12/16/2022 IMPRESSION: No focal consolidation. Unchanged prominence of the interstitium. No pleural effusion. No pneumothorax. Cardiomediastinal silhouette is within normal limits. No acute osseous abnormality. Electronically signed by: Efrain Ibrahim DO 07/31/2023 12:00 AM CDT Due to temporary technical issues with the PACS/Fluency reporting system, reports are being signed by the in house radiologists without review as a courtesy to insure prompt reporting. The interpreting radiologist is fully responsible for the content of the report.
[2023-07-31] MEDS: CHOLESTYRAMINE/ASP 4 GM/PKT PO SCH (16:21)
[2023-07-31] MEDS: MORPHINE 2 MG/ML SYR IV PRN ×2 (18:02→23:00)
[2023-08-01] MEDS: METRONIDAZOLE 500mg IVPB 500 MG/100 ML BAG IV SCH ×3 (01:10→16:06)
[2023-08-01 02:54] LABS: Absolute Lymphocytes (CBC) 0.6 K/uL (0.7-4.9); Hematocrit 24.2 % (36.0-45.0); Lymphocytes % 14.9 % (15.3-44.8); MCV 98.9 fL (80-100); MPV 8.1 fL (7.6-11.3); Platelets 222 thou/uL (152-406); RBC Red Blood Cell Count 2.45 M/uL (3.86-4.86)
[2023-08-01 03:26] LABS: Albumin 1.9 g/dL (3.4-5.0); Bilirubin Total 0.4 mg/dL (0.2-1.0); Potassium 3.5 mEq/L (3.5-5.1); Protein, Total 4.5 g/dL (6.4-8.2)
--- NOTE | 2023-08-01 06:44 | P.PN ---
Date of Service: 07/31/23 Long discussion with family. Patient well-known to me. Family ended up back at [place] and the next day they sent her back into the emergency room. It appears they have a hard time caring for her. We are using [facility] to get her diarrhea improved. However, patient's medical power of estate attorney is her daughter and she is wanting to go ahead and proceed with hospice care. They have consulted [facility] hospice and will get this arranged with case management.Otherwise, patient tolerating her diet. No new complaints.
[2023-08-01] MEDS: INSULIN REGULAR (HUMAN) 100 UNIT/ML SQ SCH ×4 (07:30→20:11)
[2023-08-01] MEDS: CHOLESTYRAMINE/ASP 4 GM/PKT PO SCH ×3 (08:29→16:06)
[2023-08-01] MEDS: CEFTRIAXONE 1,000 MG in NA CHLORIDE 0.9% 50 ML IVPB SCH (08:31)
[2023-08-01] MEDS: MORPHINE 2 MG/ML SYR IV PRN ×3 (08:32→20:05)
[2023-08-01] MEDS: ACETAMINOPHEN 500 MG TAB PO PRN (12:09)
--- NOTE | 2023-08-01 17:09 | P.PN ---
Subjective Date of Service: 08/01/23 Chief Complaint: Generalized weakness, Fatigue , chills Subjective: No new changes, Worsening Physical Examination - Vital Signs Temperature: 97.8 F Blood Pressure: 112/72 Pulse: 96 Respirations: 17 Pulse Ox (%): 100 - Physical Exam General: Alert HEENT: Atraumatic Neck: Supple Respiratory: Normal air movement Cardiovascular: Regular rate/rhythm, Normal S1 S2 Gastrointestinal: Soft and benign Musculoskeletal: No swelling Neurological: Normal speech Assessment And Plan - Plan Assessment and Plan - Problems (Diagnosis) (1) UTI (urinary tract infection) Current Visit: No Status: Acute Plan: Started on IV antibiotics We will obtain cultures We will change antibiotic as per sensitivity Changed to Capone in ER Qualifiers: Urinary tract infection type: acute cystitis Hematuria presence: without hematuria Qualified Code(s): N30.00 - Acute cystitis without hematuria (2) Dehydration Current Visit: Yes Status: Acute Plan: IV hydration Monitor volume status Possibly due to UTI and diarrhea. (3) Diarrhea Current Visit: Yes Status: Acute Plan: Continue on Flagyl for management. Monitor closely Lomotil as needed. (4) Generalized weakness Current Visit: No Status: Acute Plan: Possibly multifactorial Possibly due to UTI/diarrhea/dehydration Supportive management for now (5) Anemia Current Visit: No Status: Chronic Plan: Monitor CBC daily Transfuse as needed if hemoglobin less than 7 Qualifiers: Anemia type: unspecified type Qualified Code(s): D64.9 - Anemia, unspecified (6) Asthma Current Visit: No Status: Chronic Plan: Continue home medications and titrate as needed Bronchodilators as needed Qualifiers: (7) Bipolar disorder Current Visit: No Status: Chronic Plan: Continue home medications Titrate as needed Qualifiers: Active/Remission status: remission status unspecified Qualified Code(s): F31.9 - Bipolar disorder, unspecified (8) Obesity Current Visit: No Status: Chronic Plan: Advise lifestyle modification Qualifiers: Obesity type: due to excess calories Obesity classification: adult class 3 (BMI >= 40) Serious obesity comorbidity presence: without serious comorbidity Body mass index: BMI 40.0-44.9 (9) Type 2 diabetes mellitus Current Visit: No Status: Chronic Plan: Insulin sliding scale Basal insulin as needed We will get an A1c in a.m. Accu-Chek before every meal and at bedtime Qualifiers: Diabetes mellitus parts counterman insulin use: without parts counterman use Diabetes mellitus complication status: with hyperglycemia Qualified Code(s): E11.65 - Type 2 diabetes mellitus with hyperglycemia (10) Functional quadriplegia Current Visit: Yes Status: Chronic Plan: Patient is bedbound Supportive management Strong consideration for hospice care. Discharge Plan: Hospice care plan being arranged. - Advance Directives Does patient have a Living Will: No Does patient have a Durable POA for Healthcare: No Physician Review: Patient Assessed, Agree with Above Assessment and Plan
[2023-08-02] MEDS: MORPHINE 2 MG/ML SYR IV PRN ×5 (00:30→21:14)
[2023-08-02] MEDS: METRONIDAZOLE 500mg IVPB 500 MG/100 ML BAG IV SCH ×3 (00:30→16:39)
[2023-08-02] MEDS: INSULIN REGULAR (HUMAN) 100 UNIT/ML SQ SCH ×4 (07:30→21:00)
[2023-08-02] MEDS: CHOLESTYRAMINE/ASP 4 GM/PKT PO SCH ×3 (09:30→16:39)
[2023-08-02] MEDS: CEFTRIAXONE 1,000 MG in NA CHLORIDE 0.9% 50 ML IVPB SCH (09:31)
--- NOTE | 2023-08-02 11:21 | P.PN ---
Subjective Date of Service: 08/02/23 Chief Complaint: Generalized weakness, Fatigue , chills Subjective: No new changes Physical Examination - Vital Signs Temperature: 97.5 F Blood Pressure: 108/74 Pulse: 97 Respirations: 16 Pulse Ox (%): 99 - Physical Exam General: Alert HEENT: Atraumatic Neck: Supple Respiratory: Normal air movement Cardiovascular: Regular rate/rhythm, Normal S1 S2 Gastrointestinal: Soft and benign Musculoskeletal: No swelling Assessment And Plan - Plan Assessment and Plan - Problems (Diagnosis) (1) UTI (urinary tract infection) Current Visit: No Status: Acute Plan: Started on IV antibiotics We will obtain cultures We will change antibiotic as per sensitivity Changed to Capone in ER Qualifiers: Urinary tract infection type: acute cystitis Hematuria presence: without hematuria Qualified Code(s): N30.00 - Acute cystitis without hematuria (2) Dehydration Current Visit: Yes Status: Acute Plan: IV hydration Monitor volume status Possibly due to UTI and diarrhea. (3) Diarrhea Current Visit: Yes Status: Acute Plan: Continue on Flagyl for management. Monitor closely Lomotil as needed. (4) Generalized weakness Current Visit: No Status: Acute Plan: Possibly multifactorial Possibly due to UTI/diarrhea/dehydration Supportive management for now (5) Anemia Current Visit: No Status: Chronic Plan: Monitor CBC daily Transfuse as needed if hemoglobin less than 7 Qualifiers: Anemia type: unspecified type Qualified Code(s): D64.9 - Anemia, unspecified (6) Asthma Current Visit: No Status: Chronic Plan: Continue home medications and titrate as needed Bronchodilators as needed Qualifiers: (7) Bipolar disorder Current Visit: No Status: Chronic Plan: Continue home medications Titrate as needed Qualifiers: Active/Remission status: remission status unspecified Qualified Code(s): F31.9 - Bipolar disorder, unspecified (8) Obesity Current Visit: No Status: Chronic Plan: Advise lifestyle modification Qualifiers: Obesity type: due to excess calories Obesity classification: adult class 3 (BMI >= 40) Serious obesity comorbidity presence: without serious comorbidity Body mass index: BMI 40.0-44.9 (9) Type 2 diabetes mellitus Current Visit: No Status: Chronic Plan: Insulin sliding scale Basal insulin as needed We will get an A1c in a.m. Accu-Chek before every meal and at bedtime Qualifiers: Diabetes mellitus rat exterminator insulin use: without shelter use Diabetes mellitus complication status: with hyperglycemia Qualified Code(s): E11.65 - Type 2 diabetes mellitus with hyperglycemia (10) Functional quadriplegia Current Visit: Yes Status: Chronic Plan: Patient is bedbound Supportive management Strong consideration for hospice care. Discharge Plan: Hospice care plan being arranged. - Advance Directives Does patient have a Living Will: No Does patient have a Durable POA for Healthcare: No Physician Review: Patient Assessed, Agree with Above Assessment and Plan
[2023-08-02] MEDS: ACETAMINOPHEN 500 MG TAB PO PRN (11:30)
--- NOTE | 2023-08-02 12:17 | RAD REPORT ---
EXAM DESCRIPTION: [facility] Single View08/02/2023 12:10 pm CLINICAL HISTORY: Aspiration. Shortness of breath COMPARISON: July 30, 2023 FINDINGS: Mild right medial basilar opacities may represent atelectasis or pneumonia. They are witho ut significant change Left lung appears clear. Heart is normal size Abdomen is hazy presumably ascites
[2023-08-03] MEDS: MORPHINE 2 MG/ML SYR IV PRN ×4 (01:19→19:16)
[2023-08-03] MEDS: METRONIDAZOLE 500mg IVPB 500 MG/100 ML BAG IV SCH ×3 (01:25→17:00)
[2023-08-03] MEDS: INSULIN REGULAR (HUMAN) 100 UNIT/ML SQ SCH ×4 (07:30→21:00)
[2023-08-03] MEDS: CHOLESTYRAMINE/ASP 4 GM/PKT PO SCH ×3 (08:30→16:30)
[2023-08-03] MEDS: CEFTRIAXONE 1,000 MG in NA CHLORIDE 0.9% 50 ML IVPB SCH (09:00)
--- NOTE | 2023-08-03 09:52 | P.DS ---
Admission Date: 07/31/23 Discharge Date: 08/03/23 Disposition: HOSPICE-MEDICAL FACILITY Discharge Condition: FAIR Reason for Admission: Generalized weakness, Fatigue , chills Brief History of Present Illness: 47-year-old female with extensive past medical history hypertension, [id number] diabetes mellitus, asthma, hypothyroidism anemia, colostomy , indwelling Capone catheter, hypothyroidism, pernicious anemia, sleep apnea depression and bed bound presents today with her overall feeling unwell and feeling dehydrated. Patient also states that she was having chills but no subjective fever. Denies any nausea vomiting. Patient reported watery output from the colostomy.Patient was admitted here on 12/16/2022. Patient developed hemolytic anemia with warm antibodies. Patient had to be transferred to [facility]. Her hospital stay was complicated by colonic perforation which required partial colectomy with diversion colostomy. Since then patient developed severe physical deconditioning and was not able to walk she is bedbound now with indwelling Capone catheter. . Patient was assessed in the ER and was found to be dehydrated and also had a UTI and was admitted for further management Hospital Course: On admission, patient had significant work-up and was treated for UTI concerns for aspiration pneumonia and generalized debility. She was deemed to be fairly poorly progressive and have a very poor prognosis in view of overall comorbid condition. Extensive discussion was had with family member and the final decision was to have patient transition to hospice care in view of futility of further care among other things. She was accepted to hospice care after insurance approval and she is to be transferred to facility for hospice care. A prescription of oral Flagyl was given to assist with management of suspected aspiration pneumonia. At the time of discharge, urine culture was showing suspected ESBL E. coli UTI. Further testing being awaited upon. Vital Signs/Physical Exam: Temp Pulse Resp BP Pulse Ox 97.5 F 97 H 16 108/74 99 08/03/23 09:43 08/03/23 09:43 08/03/23 09:43 08/03/23 09:43 08/03/23 09:43 General: Alert HEENT: Atraumatic Neck: Supple Respiratory: Normal air movement Cardiovascular: Regular rate/rhythm, Normal S1 S2 Gastrointestinal: Soft and benign Musculoskeletal: No swelling Neurological: Normal speech Laboratory Data at Discharge: WBC 4.00 thou/uL (4.3-10.9) L 11/06/23 02:18 Hgb 8.2 g/dL (12.0-15.0) L 08/01/23 02:18 Hct 24.2 % (36.0-45.0) L 08/01/23 02:18 Plt Count 222 thou/uL (152-406) 08/01/23 02:18 PT 13.4 SECONDS (9.5-12.5) H 07/31/23 00:27 INR 1.22 07/31/23 00:27 APTT 36.5 SECONDS (24.3-36.9) 07/31/23 00:27 Sodium 140 mEq/L (136-145) 08/01/23 02:18 Potassium 3.5 mEq/L (3.5-5.1) 08/01/23 02:18 BUN 7 mg/dL (7-18) 08/01/23 02:18 Creatinine 0.59 mg/dL (0.55-1.02) 08/01/23 02:18 Glucose 77 mg/dL (74-106) 08/01/23 02:18 Total Bilirubin 0.4 mg/dL (0.2-1.0) 08/01/23 02:18 AST 11 U/L (15-37) L 08/01/23 02:18 ALT 13 U/L (13-56) 08/01/23 02:18 Alkaline Phosphatase 131 U/L (45-117) H 08/01/23 02:18 Home Medications: Buspirone HCl [Buspar*] 30 mg PO BID 07/31/23 Cholestyramine/Aspartame [Cholestyramine Light Packet] 4 gm PO QID 07/31/23 Enoxaparin Sodium [Lovenox 40 MG INJ*] 40 mg SQ DAILY 07/31/23 Escitalopram Oxalate [Lexapro] 20 mg PO DAILY 07/31/23 Folic Acid 1 mg PO DAILY 07/31/23 Furosemide [Lasix*] 40 mg PO DAILY 07/31/23 Gabapentin [Neurontin*] 100 mg PO BID 07/31/23 Levothyroxine [Synthroid*] 50 mcg PO [id number] 07/31/23 Loperamide [Imodium*] 4 mg PO QID 07/31/23 Magnesium Oxide [Mag 0X*] 400 mg PO DAILY 07/31/23 Octreotide Acetate [Sandostatin] 100 mcg SQ TID 07/31/23 Omeprazole 20 mg PO BID 07/31/23 Rosuvastatin Calcium [Crestor] 10 mg PO BEDTIME 07/31/23 Topiramate [Topamax*] 25 mg PO BID 07/31/23 risperiDONE [Risperdal 1 mg tab*] 1 mg PO BID 07/31/23 Cholestyramine/Asp [Questran Light*] 4 gm PO AC packet 08/03/23 Insulin -Regular Human [Novolin -R*] See Protocol SQ ACHS ml 08/03/23 metroNIDAZOLE [Flagyl] 500 mg PO Q8H 5 Days #15 08/03/23 New Medications: metroNIDAZOLE [Flagyl] 500 mg PO Q8H 5 Days #15 Diet: ADA Followup: Vinnie Boss MD [Primary Care Provider] -
[2023-08-03 10:23] VITALS: O2SAT 98
[2023-08-04] MEDS: MORPHINE 2 MG/ML SYR IV PRN ×4 (00:01→17:17)
[2023-08-04] MEDS: METRONIDAZOLE 500mg IVPB 500 MG/100 ML BAG IV SCH ×3 (00:02→17:17)
[2023-08-04] MEDS: INSULIN REGULAR (HUMAN) 100 UNIT/ML SQ SCH ×4 (07:30→21:00)
[2023-08-04] MEDS: CHOLESTYRAMINE/ASP 4 GM/PKT PO SCH ×3 (10:26→17:17)
[2023-08-04] MEDS: CEFTRIAXONE 1,000 MG in NA CHLORIDE 0.9% 50 ML IVPB SCH (10:26)
--- NOTE | 2023-08-04 16:26 | P.PN ---
Subjective Date of Service: 08/04/23 Chief Complaint: Generalized weakness, Fatigue , chills Subjective: No new changes Physical Examination - Vital Signs Temperature: 97.8 F Blood Pressure: 127/66 Pulse: 99 Respirations: 20 Pulse Ox (%): 99 - Physical Exam General: Alert HEENT: Atraumatic, Normocephalic Neck: Supple Respiratory: Normal air movement Cardiovascular: Regular rate/rhythm, Normal S1 S2 Gastrointestinal: Soft and benign Neurological: Normal speech Assessment And Plan - Plan Assessment and Plan - Problems (Diagnosis) (1) UTI (urinary tract infection) Current Visit: No Status: Acute Plan: Started on IV antibiotics We will obtain cultures We will change antibiotic as per sensitivity Changed to Capone in ER Qualifiers: Urinary tract infection type: acute cystitis Hematuria presence: without hematuria Qualified Code(s): N30.00 - Acute cystitis without hematuria (2) Dehydration Current Visit: Yes Status: Acute Plan: IV hydration Monitor volume status Possibly due to UTI and diarrhea. (3) Diarrhea Current Visit: Yes Status: Acute Plan: Continue on Flagyl for management. Monitor closely Lomotil as needed. (4) Generalized weakness Current Visit: No Status: Acute Plan: Possibly multifactorial Possibly due to UTI/diarrhea/dehydration Supportive management for now (5) Anemia Current Visit: No Status: Chronic Plan: Monitor CBC daily Transfuse as needed if hemoglobin less than 7 Qualifiers: Anemia type: unspecified type Qualified Code(s): D64.9 - Anemia, unspecified (6) Asthma Current Visit: No Status: Chronic Plan: Continue home medications and titrate as needed Bronchodilators as needed Qualifiers: (7) Bipolar disorder Current Visit: No Status: Chronic Plan: Continue home medications Titrate as needed Qualifiers: Active/Remission status: remission status unspecified Qualified Code(s): F31.9 - Bipolar disorder, unspecified (8) Obesity Current Visit: No Status: Chronic Plan: Advise lifestyle modification Qualifiers: Obesity type: due to excess calories Obesity classification: adult class 3 (BMI >= 40) Serious obesity comorbidity presence: without serious comorbidity Body mass index: BMI 40.0-44.9 (9) Type 2 diabetes mellitus Current Visit: No Status: Chronic Plan: Insulin sliding scale Basal insulin as needed We will get an A1c in a.m. Accu-Chek before every meal and at bedtime Qualifiers: Diabetes mellitus terminal supervisor insulin use: without terminal supervisor use Diabetes mellitus complication status: with hyperglycemia Qualified Code(s): E11.65 - Type 2 diabetes mellitus with hyperglycemia (10) Functional quadriplegia Current Visit: Yes Status: Chronic Plan: Patient is bedbound Supportive management Strong consideration for hospice care. Discharge Plan: Hospice care plan being arranged. - Advance Directives Does patient have a Living Will: No Does patient have a Durable POA for Healthcare: No Physician Review: Patient Assessed, Agree with Above Assessment and Plan
[2023-08-05] MEDS: METRONIDAZOLE 500mg IVPB 500 MG/100 ML BAG IV SCH ×2 (01:35→08:36)
[2023-08-05] MEDS: INSULIN REGULAR (HUMAN) 100 UNIT/ML SQ SCH ×3 (07:30→16:30)
[2023-08-05 08:32] VITALS: BP 109/81; TEMP 97.2
[2023-08-05] MEDS: MORPHINE 2 MG/ML SYR IV PRN ×2 (08:32→13:26)
[2023-08-05] MEDS: CEFTRIAXONE 1,000 MG in NA CHLORIDE 0.9% 50 ML IVPB SCH (08:37)
[2023-08-05] MEDS: CHOLESTYRAMINE/ASP 4 GM/PKT PO SCH ×2 (08:37→12:32)
--- NOTE | 2023-08-05 09:19 | P.PN ---
Subjective Date of Service: 08/05/23 Chief Complaint: Generalized weakness, Fatigue , chills Subjective: No new changes, Improving Physical Examination - Vital Signs Temperature: 97.2 F Blood Pressure: 109/81 Pulse: 87 Respirations: 16 Pulse Ox (%): 98 - Physical Exam General: Alert HEENT: Atraumatic - Studies Microbiology Data (last 24 hrs): 07/31/23 00:03 Blood - Blood Aerobic Blood Culture - Final No growth in 5 days. 07/31/23 00:03 Blood - Blood Anaerobic Blood Culture - Final No growth in 5 days. 07/31/23 00:27 Blood - Blood Aerobic Blood Culture - Final No growth in 5 days. 07/31/23 00:27 Blood - Blood Anaerobic Blood Culture - Final No growth in 5 days. Assessment And Plan - Plan Assessment and Plan - Problems (Diagnosis) (1) UTI (urinary tract infection) Current Visit: No Status: Acute Plan: Started on IV antibiotics We will obtain cultures We will change antibiotic as per sensitivity Changed to Capone in ER Qualifiers: Urinary tract infection type: acute cystitis Hematuria presence: without hematuria Qualified Code(s): N30.00 - Acute cystitis without hematuria (2) Dehydration Current Visit: Yes Status: Acute Plan: IV hydration Monitor volume status Possibly due to UTI and diarrhea. (3) Diarrhea Current Visit: Yes Status: Acute Plan: Continue on Flagyl for management. Monitor closely Lomotil as needed. (4) Generalized weakness Current Visit: No Status: Acute Plan: Possibly multifactorial Possibly due to UTI/diarrhea/dehydration Supportive management for now (5) Anemia Current Visit: No Status: Chronic Plan: Monitor CBC daily Transfuse as needed if hemoglobin less than 7 Qualifiers: Anemia type: unspecified type Qualified Code(s): D64.9 - Anemia, unspecified (6) Asthma Current Visit: No Status: Chronic Plan: Continue home medications and titrate as needed Bronchodilators as needed Qualifiers: (7) Bipolar disorder Current Visit: No Status: Chronic Plan: Continue home medications Titrate as needed Qualifiers: Active/Remission status: remission status unspecified Qualified Code(s): F31.9 - Bipolar disorder, unspecified (8) Obesity Current Visit: No Status: Chronic Plan: Advise lifestyle modification Qualifiers: Obesity type: due to excess calories Obesity classification: adult class 3 (BMI >= 40) Serious obesity comorbidity presence: without serious comorbidity Body mass index: BMI 40.0-44.9 (9) Type 2 diabetes mellitus Current Visit: No Status: Chronic Plan: Insulin sliding scale Basal insulin as needed We will get an A1c in a.m. Accu-Chek before every meal and at bedtime Qualifiers: Diabetes mellitus ocean transportation intermediary insulin use: without prison use Diabetes mellitus complication status: with hyperglycemia Qualified Code(s): E11.65 - Type 2 diabetes mellitus with hyperglycemia (10) Functional quadriplegia Current Visit: Yes Status: Chronic Plan: Patient is bedbound Supportive management Strong consideration for hospice care. Discharge Plan: Hospice care plan being arranged. - Advance Directives Does patient have a Living Will: No Does patient have a Durable POA for Healthcare: No Physician Review: Patient Assessed, Agree with Above Assessment and Plan
--- NOTE | 2023-08-05 15:35 | P.DS ---
Admission Date: 07/31/23 Discharge Date: 08/05/23 Disposition: HOSPICE-MEDICAL FACILITY Discharge Condition: FAIR Reason for Admission: Generalized weakness, Fatigue , chills Brief History of Present Illness: 47-year-old female with extensive past medical history hypertension, [id number] diabetes mellitus, asthma, hypothyroidism anemia, colostomy , indwelling Capone catheter, hypothyroidism, pernicious anemia, sleep apnea depression and bed bound presents today with her overall feeling unwell and feeling dehydrated. Patient also states that she was having chills but no subjective fever. Denies any nausea vomiting. Patient reported watery output from the colostomy.Patient was admitted here on 12/16/2022. Patient developed hemolytic anemia with warm antibodies. Patient had to be transferred to [facility]. Her hospital stay was complicated by colonic perforation which required partial colectomy with diversion colostomy. Since then patient developed severe physical deconditioning and was not able to walk she is bedbound now with indwelling Capone catheter. . Patient was assessed in the ER and was found to be dehydrated and also had a UTI and was admitted for further management Hospital Course: On admission, patient had significant work-up and was treated for UTI concerns for aspiration pneumonia and generalized debility. She was deemed to be fairly poorly progressive and have a very poor prognosis in view of overall comorbid condition. Extensive discussion was had with family member and the final decision was to have patient transition to hospice care in view of futility of further care among other things. She was accepted to hospice care after insurance approval and she is to be transferred to facility for hospice care. A prescription of oral Flagyl was given to assist with management of suspected aspiration pneumonia. At the time of discharge, urine culture was showing suspected ESBL E. coli UTI. Further testing being awaited upon. Vital Signs/Physical Exam: Temp Pulse Resp BP Pulse Ox 97.2 F 87 16 109/81 98 08/05/23 09:19 08/05/23 09:19 08/05/23 13:26 08/05/23 09:19 08/05/23 13:26 General: Alert HEENT: Atraumatic Neck: Supple Respiratory: Normal air movement Cardiovascular: Regular rate/rhythm, Normal S1 S2 Gastrointestinal: Soft and benign Musculoskeletal: No swelling Laboratory Data at Discharge: WBC 4.00 thou/uL (4.3-10.9) L 08/01/23 02:18 Hgb 8.2 g/dL (12.0-15.0) L 08/01/23 02:18 Hct 24.2 % (36.0-45.0) L 08/01/23 02:18 Plt Count 222 thou/uL (152-406) 08/01/23 02:18 PT 13.4 SECONDS (9.5-12.5) H 07/31/23 00:27 INR 1.22 07/31/23 00:27 APTT 36.5 SECONDS (24.3-36.9) 07/31/23 00:27 Sodium 140 mEq/L (136-145) 08/01/23 02:18 Potassium 3.5 mEq/L (3.5-5.1) 08/01/23 02:18 BUN 7 mg/dL (7-18) 08/01/23 02:18 Creatinine 0.59 mg/dL (0.55-1.02) 08/01/23 02:18 Glucose 77 mg/dL (74-106) 08/01/23 02:18 Total Bilirubin 0.4 mg/dL (0.2-1.0) 08/01/23 02:18 AST 11 U/L (15-37) L 08/01/23 02:18 ALT 13 U/L (13-56) 08/01/23 02:18 Alkaline Phosphatase 131 U/L (45-117) H 08/01/23 02:18 Home Medications: Buspirone HCl [Buspar*] 30 mg PO BID 07/31/23 Cholestyramine/Aspartame [Cholestyramine Light Packet] 4 gm PO QID 07/31/23 Enoxaparin Sodium [Lovenox 40 MG INJ*] 40 mg SQ DAILY 07/31/23 Escitalopram Oxalate [Lexapro] 20 mg PO DAILY 07/31/23 Folic Acid 1 mg PO DAILY 07/31/23 Furosemide [Lasix*] 40 mg PO DAILY 07/31/23 Gabapentin [Neurontin*] 100 mg PO BID 07/31/23 Levothyroxine [Synthroid*] 50 mcg PO [id number] 07/31/23 Loperamide [Imodium*] 4 mg PO QID 07/31/23 Magnesium Oxide [Mag 0X*] 400 mg PO DAILY 07/31/23 Octreotide Acetate [Sandostatin] 100 mcg SQ TID 07/31/23 Omeprazole 20 mg PO BID 07/31/23 Rosuvastatin Calcium [Crestor] 10 mg PO BEDTIME 07/31/23 Topiramate [Topamax*] 25 mg PO BID 07/31/23 risperiDONE [Risperdal 1 mg tab*] 1 mg PO BID 07/31/23 Cholestyramine/Asp [Questran Light*] 4 gm PO AC packet 08/03/23 Insulin -Regular Human [Novolin -R*] See Protocol SQ ACHS ml 08/03/23 metroNIDAZOLE [Flagyl] 500 mg PO Q8H 5 Days #15 08/03/23 New Medications: metroNIDAZOLE [Flagyl] 500 mg PO Q8H 5 Days #15 Diet: ADA Followup: Vinnie Boss MD [Primary Care Provider] -
--- NOTE | 2023-08-05 15:36 | P.PN ---
Subjective Date of Service: 08/03/23 Chief Complaint: Generalized weakness, Fatigue , chills Subjective: No new changes, Improving Physical Examination - Vital Signs Temperature: 97.2 F Blood Pressure: 109/81 Pulse: 87 Respirations: 16 Pulse Ox (%): 98 - Physical Exam General: Alert, Oriented x3 HEENT: Atraumatic Neck: Supple Respiratory: Normal air movement Cardiovascular: Regular rate/rhythm, Normal S1 S2 Gastrointestinal: Soft and benign Musculoskeletal: No swelling - Studies Microbiology Data (last 24 hrs): 07/31/23 00:03 Blood - Blood Aerobic Blood Culture - Final No growth in 5 days. 07/31/23 00:03 Blood - Blood Anaerobic Blood Culture - Final No growth in 5 days. 07/31/23 00:27 Blood - Blood Aerobic Blood Culture - Final No growth in 5 days. 07/31/23 00:27 Blood - Blood Anaerobic Blood Culture - Final No growth in 5 days. Assessment And Plan Physician Review: Patient Assessed, Agree with Above Assessment and Plan
[2023-08-05] MEDS ORDERED: Meropenem 1,000 MG in NA CHLORIDE 0.9% 100 ML IV SCH (17:00)
--- NOTE | 2023-08-06 14:38 | EKG ---
Test Date: 2023-07-31 Test Time: 01:34:50 Canoe Inspector Final: MEASUREMENT RESULTS: Intervals: Rate: 103 NH: 172 QRSD: 118 QT: 364 QTc: 476 [place]: P: 46 NH: 172 QRS: -58 T: 92 INTERPRETIVE STATEMENTS: Sinus tachycardia with frequent premature ventricular complexes and fusion complexes Left anterior fascicular block Septal infarct, age undetermined Abnormal ECG Compared to ECG 12/16/2022 19:59:22 Fusion complex(es) now present Ventricular premature complex(es) now present Left anterior fascicular block now present Myocardial infarct finding now present Supraventricular tachycardia no longer present Left-axis deviation no longer present Incomplete right bundle-branch block no longer present T-wave abnormality no longer present Possible ischemia no longer present Electronically Signed On 08-06-23 14:19:11 C[employer]OMS [employer] BORDER PROTECTION INSPECTOR by Donnell Blanc
== END 2023-08-05 18:00 | disposition hospice, inpatient (51) | DRG 698 ==
LOC: ER 22:41 → 2ND 07-31 02:33
PROVIDERS: ADMIT Family Medicine; ATTEND Internal Medicine Nephrology
DX: T83.511A Infection and inflammatory reaction due to indwelling urethral catheter, initial encounter (principal); J69.0 Pneumonitis due to inhalation of food and vomit; R53.2 Functional quadriplegia; N30.00 Acute cystitis without hematuria; Z68.1 Body mass index [BMI] 19.9 or less, adult; Z16.12 Extended spectrum beta lactamase (ESBL) resistance; I10 Essential (primary) hypertension; E03.9 Hypothyroidism, unspecified; I49.3 Ventricular premature depolarization; I45.10 Unspecified right bundle-branch block; E86.0 Dehydration; L89.151 Pressure ulcer of sacral region, stage 1; E11.40 Type 2 diabetes mellitus with diabetic neuropathy, unspecified; E11.65 Type 2 diabetes mellitus with hyperglycemia; E88.09 Other disorders of plasma-protein metabolism, not elsewhere classified; F31.9 Bipolar disorder, unspecified; D64.9 Anemia, unspecified; E66.09 Other obesity due to excess calories; E78.00 Pure hypercholesterolemia, unspecified; J45.909 Unspecified asthma, uncomplicated; B96.20 Unspecified Escherichia coli [E. coli] as the cause of diseases classified elsewhere; Z79.4 Long term (current) use of insulin; Z93.3 Colostomy status; Z88.1 Allergy status to other antibiotic agents; Z88.8 Allergy status to other drugs, medicaments and biological substances; Z88.5 Allergy status to narcotic agent; Z90.49 Acquired absence of other specified parts of digestive tract; Z11.52 Encounter for screening for COVID-19; Z98.51 Tubal ligation status; Z90.81 Acquired absence of spleen; Z74.01 Bed confinement status; Z79.899 Other long term (current) drug therapy; Z79.890 Hormone replacement therapy
CPT/HCPCS: 36415; 51702; 71045; 80053; 81001; 82947; 83605; 85025; 85610; 85730; 87040; 87077; 87086; 87088; 87186; 87635; 87804; 93005; 94760; 99285; J0696; J2270; J7030; P9047

== ENCOUNTER 2023-08-23 01:45 | Emergency (ER) | payer OTHER ==
[2023-08-23] MEDS ORDERED: HYDROCODONE/APAP 10/325 TAB ONE (02:26)
[2023-08-23] MEDS ORDERED: KETOROLAC 30 MG/ML INJ ONE (02:27)
--- NOTE | 2023-08-23 05:16 | ER ---
Nurse's Notes [facility] Name: Linda Rahman Age: 47 yrs Sex: Female : 1975 Arrival Date: 08/23/2023 Time: 01:45 Bed 14 Private MD: Diagnosis: Pelvic and perineal pain;Complications of colostomy, detached colostomy bag, pelvic free fluid Presentation: 08/23 01:50 Chief complaint: EMS states: called out for back pain. Coronavirus screen: At this as6 time, the client does not indicate any symptoms associated with coronavirus-19. Ebola Screen: No symptoms or risks identified at this time. Risk Assessment: Do you want to hurt yourself or someone else? Patient reports no desire to harm self or others. Onset of symptoms was August 23, 2023. 01:50 Method Of Arrival: EMS: [facility] as6 01:50 Acuity: [place] 3 as6 02:38 Initial Sepsis Screen: Does the patient meet any 2 criteria? No. Patient's initial as6 sepsis screen is negative. Does the patient have a suspected source of infection? No. Patient's initial sepsis screen is negative. Historical: - Allergies: 01:51 Amoxicillin; as6 01:51 Codeine; as6 01:51 Demerol; as6 01:51 Geodon; as6 01:51 Meclizine; as6 01:51 Tessalon Perles; as6 01:51 Benzonatate; as6 01:51 Benadryl; as6 01:51 Lorazepam; as6 01:51 Meperidine; as6 01:51 ZIPRASIDONE; as6 - PMHx: 01:51 Anemia; angina pectoris; angina pectoris; Anxiety; Asthma; Chronic Abdominal Pain; as6 Depression; diabetes mellitus; Hypertensive disorder; Hypothyroidism; Migraine; - PSHx: 01:51 Cholecystectomy; tubal ligation; as6 - Immunization history:: Adult Immunizations up to date. - Social history:: Smoking status: Patient denies any tobacco usage or history of. Screenin:[facility] ED Fall Risk Assessment (Adult) Score/Fall Risk Level 0 - 2 = Low Risk. Abuse as6 screen: Denies threats or abuse. Denies injuries from another. Nutritional screening: No deficits noted. Tuberculosis screening: No symptoms or risk factors identified. Assessment: 02:37 General: Appears ill, slender, unkempt, Behavior is calm, cooperative. Pain: Complains as6 of pain in coccyx. Neuro: Level of Consciousness is awake, alert, obeys commands, Oriented to person, place, time, situation. Cardiovascular: Capillary refill < 3 seconds Patient's skin is warm and dry. Respiratory: Respiratory effort is even, unlabored, Respiratory pattern is regular, symmetrical. GI: Colostomy site. : Capone in place. Musculoskeletal: Reports pain in coccyx. 04:58 Reassessment: Patient appears in no apparent distress at this time. as6 05:30 General: Report given to Bev from [place], said she would call [facility] to as6 transport pt back to facility . Vital Signs: 02:00 BP 89 / 63; Pulse 102; Resp 16 S; Temp 98(O); Pulse Ox 100% on R/A; Weight 51.26 kg as6 (R); Height 5 ft. 4 in. (R); Pain 10/10; 03:53 BP 94 / 64; Pulse 98; Resp 18 S; Pulse Ox 97% on R/A; as6 04:57 BP 91 / 66; Pulse 93; Resp 18 S; Pulse Ox 96% on R/A; as6 02:00 Body Mass Index 19.40 (51.26 kg, 162.56 cm) as6 02:00 Pain Scale: Adult as6 ED Course: 01:50 Patient arrived in ED. as6 01:51 Triage completed. as6 01:52 Slick Garcia MD is Attending Physician. sp4 01:53 Anselmo Crandall, ABDULLAHI is Primary Nurse. as6 02:19 Arm band placed on. as6 02:39 Bed in low position. Call light in reach. Side rails up X2. as6 02:47 CT Pelvis wo Cont In Process Unspecified. EDMS 06:36 Provided Education on: follow up. as6 06:36 No provider procedures requiring assistance completed. Patient did not have IV access as6 during this emergency room visit. Administered Medications: 02:18 Drug: [place] PO 10 mg-325 mg 1 tabs PO once Route: PO; as6 05:31 Follow up: Response: No adverse reaction as6 02:18 Drug: Ketorolac IM 60 mg IM once Route: IM; Site: right vastus lateralis; as6 05:31 Follow up: Response: No adverse reaction as6 05:17 Not Given (Other Intervention Used): morphineor iv 4 mg IVP once over 4 mins as6 05:24 Drug: morphine IM 4 mg IM once Route: IM; Site: left vastus lateralis; as6 05:31 Follow up: Response: No adverse reaction as6 Medication: 02:39 VIS not applicable for this client. as6 Outcome: 05:16 Discharge ordered by sp4 06:36 Discharged to skilled nursing. as6 06:36 Condition: stable 06:36 Discharge instructions given to patient, family, Instructed on discharge instructions, follow up and referral plans. Demonstrated understanding of instructions, follow-up care, 06:37 Patient left the ED. as6 Signatures: Dispatcher [employer] Anselmo Alexander RN RN as6 Slick Garcia MD MD sp4
--- NOTE | 2023-08-23 05:16 | EDPHYS ---
Physician Documentation [facility] Name: Linda Rahman Age: 47 yrs Sex: Female : 1975 Arrival Date: 08/23/2023 Time: 01:45 Bed 14 Private MD: ED Physician Slick Garcia HPI: 08/23 01:53 This 47 yrs old Female presents to ER via EMS with complaints of tailbone sp4 pain. . Historical: - Allergies: 01:51 Amoxicillin; as6 01:51 Codeine; as6 01:51 Demerol; as6 01:51 Geodon; as6 01:51 Meclizine; as6 01:51 Tessalon Perles; as6 01:51 Benzonatate; as6 01:51 Benadryl; as6 01:51 Lorazepam; as6 01:51 Meperidine; as6 01:51 ZIPRASIDONE; as6 - PMHx: 01:51 Anemia; angina pectoris; angina pectoris; Anxiety; Asthma; Chronic Abdominal Pain; as6 Depression; diabetes mellitus; Hypertensive disorder; Hypothyroidism; Migraine; - PSHx: 01:51 Cholecystectomy; tubal ligation; as6 - Immunization history:: Adult Immunizations up to date. - Social history:: Smoking status: Patient denies any tobacco usage or history of. Vital Signs: 02:00 BP 89 / 63; Pulse 102; Resp 16 S; Temp 98(O); Pulse Ox 100% on R/A; Weight 51.26 kg as6 (R); Height 5 ft. 4 in. (R); Pain 10/10; 03:53 BP 94 / 64; Pulse 98; Resp 18 S; Pulse Ox 97% on R/A; as6 04:57 BP 91 / 66; Pulse 93; Resp 18 S; Pulse Ox 96% on R/A; as6 02:00 Body Mass Index 19.40 (51.26 kg, 162.56 cm) as6 02:00 Pain Scale: Adult as6 MDM: 01:55 Patient medically screened. sp4 05:06 ED course: CT - COMPARISON: No relevant prior studies available. FINDINGS: Limitations: sp4 Evaluation limited due to technique. Bowel: Right lower quadrant ostomy. Prior hemicolectomy. No obstruction. Appendix: See above. Intraperitoneal space: Large amount of free fluid throughout the pelvis. No free air. Bladder: Capone catheter in the bladder. No stones. Reproductive: Unremarkable as visualized. Bones/joints: No acute fracture. No dislocation. Soft tissues: Round approximately 2.5 cm cystic focus which appears contiguous with the lower abdominal wall in the periumbilical region which may represent a fluid collection or abscess. There are 3 adjacent nodular soft tissue densities measuring up to 2.6 cm which are poorly visualized. Vasculature: Unremarkable. No lower abdominal aortic aneurysm. Lymph nodes: Unremarkable. No enlarged lymph nodes. IMPRESSION: 1. Round approximately 2.5 cm cystic focus which appears contiguous with the lower abdominal wall in the periumbilical region which may represent a fluid collection or abscess. There are 3 adjacent nodular soft tissue densities measuring up to 2.6 cm which are poorly visualized. Findings are concerning for neoplasm. Correlate with any history of malignancy. Consider dedicated CT abdomen and pelvis with contrast for further evaluation if clinically indicated. 2. Large amount of free fluid throughout the pelvis. 3. Right lower quadrant ostomy. Prior hemicolectomy. . 08/23 01:52 Order name: CT Pelvis wo Cont sp4 Administered Medications: 02:18 Drug: [place] PO 10 mg-325 mg 1 tabs PO once Route: PO; as6 05:31 Follow up: Response: No adverse reaction as6 02:18 Drug: Ketorolac IM 60 mg IM once Route: IM; Site: right vastus lateralis; as6 05:31 Follow up: Response: No adverse reaction as6 05:17 Not Given (Other Intervention Used): morphineor iv 4 mg IVP once over 4 mins as6 05:24 Drug: morphine IM 4 mg IM once Route: IM; Site: left vastus lateralis; as6 05:31 Follow up: Response: No adverse reaction as6 Disposition Summary: 08/23/23 05:16 Discharge Ordered Notes: We recommend discharge home back to Hospice care Location: Home sp4 Problem: new sp4 Symptoms: are unchanged sp4 Condition: Fair sp4 Diagnosis - Pelvic and perineal pain sp4 - Complications of colostomy, detached colostomy bag, pelvic free fluid sp4 Followup: sp4 - With: Private Physician - When: As needed - Reason: Discharge Instructions: - Discharge Summary Sheet sp4 - Colostomy Home Guide, Adult sp4 Forms: - SBAR form bp - Patient Portal Instructions sp4 Addendum: 08/24/2023 12:47 Addendum: ROS - Positive for pelvic / tail bone pain . Otherwise negative - see HPI . s p4 Addendum: PE -- General:Well-developed, Heavily debilitated female, ill appearing, pale , hypotensive on the monitor. .Alert, oriented to time, place, person, and situation. Recent and remote memory intact. Good insight .No aphasia, dysarthria or hoarseness. Skin warm, dry, with good turgor, No abnormal pigmentation, bleeding, rash, or other lesions. Hair normal texture and distribution. No nail changes .Head: Normocephalic without scalp lesions .Sensation intact over face. No facial asymmetry, muscles of facial expression intact. Ears and nose without deformity, external tenderness or discharge Hearing intact bilaterally by rough testing (or:to whisper)Eyes:Conjunctivae pink, sclerae white, without jaundice. No en-or exophthalmos of lids. External ocular movements (EOM's) intact (or:full), no strabismus or nystagmus. Pupils equal round, react to light and accommodation (PERRLA). Visual hatfield intact Mouth and Throat: Lips normal color, without lesions. Tongue normal size and papillation, midline protrusion. Tonsils not enlarged (or: absent). Palate elevates symmetrically,gag intact. Neck:Neck supple with full range of motion(ROM). No masses or tenderness. Jugular venous distension (JVD)normal. Trachea midline. Thyroid not palpable(or:normal size and consistency).Carotic pulses full and equal, without bruits. Lymph Nodes: Occipital,pre-and postauricular, submandibular, anterior or posterior cervical, or supraclavicular nodes not enlarged Full range of motion, no muscle spasm or tenderness. lymph nodes nor enlarged. Lungs: Respiratory excursions full and symmetrical. Lungs resonant to percussion\T\ vesicular breath sounds throughout peripheral lung hatfield(an accepted abbreviation for normal lung percussion and auscultation: No rales, rhonchi, wheezes, or rubs. Vocal and tactile fremitus normal. Cardiovascular: No abnormal heaves or lifts. No thrill. Regular rate and rhythm. (RRR) First and Second Sound normal intensity, No extra sounds or murmurs. Abdomen: Scaphoid without scars. No abnormal tympany. Normal bowel sounds, no bruits. Superficial \T\ deep palpation without organomegaly or masses; no direct or rebound tenderness,rigidity, originating edge soft liver span 10 cm. Spleen normal size (or:not palpable), kidneys not palpable. Extremities: No asymmetry atrophy. Full range of motion (ROM) of all joints. Normal skin temperature. No edema, varicosities nodes not enlarged. All distal pulses (or: femoral, popliteal, PT, and DP pulses intact, full, and equal; no bruits over femoral artery. Addendum: Patient is currently on Hospice . We have discussed with patient and her the overall implications of the CT findings. The implications of taking patient off hospice and further work up would be the initiation of the full measures to treat potentially deadly problem of free fluid in the pelvis and potential abscess in the pelvis. Patient prefers to stay on hospice and declined ER work up and reported that she would like additional pain control and discharge home. Her agreed on the same. Patient was given additional pain medication. Patient's colostomy was exchanged. Patient is familiar to me from prior visit. She will be discharged home to continue pain management and her hospice stays in power. . Signatures: Dispatcher [employer] Anselmo Alexander RN RN as6 Slick Garcia MD MD sp4
[2023-08-23] MEDS ORDERED: MORPHINE 4 MG/ML SYR ONE (05:33)
[2023-08-23 06:44] VITALS: TEMP 98
[2023-08-23 06:46] VITALS: BP 91/66; O2SAT 96
--- NOTE | 2023-08-24 10:20 | RAD REPORT ---
EXAM DESCRIPTION: CT - Pelvis Wo Cont - 08/23/2023 2:45 am CLINICAL HISTORY: The patient is 47 years old and is Female; pelvic pain TECHNIQUE: Axial computed tomography images of the pelvis without intravenous contrast. Sagittal a nd coronal reformatted images were created and reviewed. This CT exam was performed using one or mo re of the following dose reduction techniques: automated exposure control, adjustment of the mA and /or kV according to patient size, and/or use of iterative reconstruction technique. COMPARISON: No relevant prior studies available. FINDINGS: Limitations: Evaluation limited due to technique. Bowel: Right lower quadrant ostomy. Prior hemicolectomy. No obstruction. Appendix: See above. Intraperitoneal space: Large amount of free fluid throughout the pelvis. No free air. Bladder: Capone catheter in the bladder. No stones. Reproductive: Unremarkable as visualized. Bones/joints: No acute fracture. No dislocation. Soft tissues: Round approximately 2.5 cm cystic focus which appears contiguous with the lower abd ominal wall in the periumbilical region which may represent a fluid collection or abscess. There are 3 adjacent nodular soft tissue densities measuring up to 2.6 cm which are poorly visualized. Vasculature: Unremarkable. No lower abdominal aortic aneurysm. Lymph nodes: Unremarkable. No enlarged lymph nodes. IMPRESSION: 1. Round approximately 2.5 cm cystic focus which appears contiguous with the lower abd ominal wall in the periumbilical region which may represent a fluid collection or abscess. There are 3 adjacent nodular soft tissue densities measuring up to 2.6 cm which are poorly visualized. Findin gs are concerning for neoplasm. Correlate with any history of malignancy. Consider dedicated CT abdom en and pelvis with contrast for further evaluation if clinically indicated. 2. Large amount of free fluid throughout the pelvis. 3. Right lower quadrant ostomy. Prior hemicolectomy. Electronically signed by: Chemo Soares MD 08/23/2023 04:54 AM [employer] Due to temporary technical issues with the PACS/Fluency reporting system, reports are being signed by the in house radiologist without review as a courtesy to ensure prompt reporting. The interpreting r adiologist is fully responsible for the content of the report.
== END 2023-08-23 06:37 | disposition home or self-care (01) ==
LOC: ER 01:45
DX: R10.2 Pelvic and perineal pain (principal); K94.09 Other complications of colostomy; R19.09 Other intra-abdominal and pelvic swelling, mass and lump; Z88.1 Allergy status to other antibiotic agents; Z88.5 Allergy status to narcotic agent; Z88.8 Allergy status to other drugs, medicaments and biological substances
CPT/HCPCS: 72192; 96372; 99284